=== PATIENT | male | born 1945 | race Caucasian/White ===

== ENCOUNTER 2023-02-26 13:48 | Outpatient (RCR) | payer MEDICARE, SELFPAY | END 2023-03-04 15:36 | disposition home or self-care (01) | LOC: PT 13:48 | PROVIDERS: PCP Family Medicine; Visit Provider Family Medicine | DX: M25.552 Pain in left hip (principal); M54.9 Dorsalgia, unspecified | CPT/HCPCS: 97110; 97162 ==

== ENCOUNTER 2023-06-01 07:49 | Outpatient (OUT) | payer MEDICARE, SELFPAY ==
--- NOTE | 2023-06-01 09:14 | PM.PRESUREVA ---
History of Present Illness History of Present Illness Chief complaint: left kidney stone, incomplete bladder emptying Narrative: Patient presents for preadmission testing. Please see HPI from Dr. Cortez dated 05/15/2023. Review of Systems ROS Narrative Please see ROS from Dr. Cortez dated 05/15/2023. [facility] Medical History (Updated 06/01/23 @ 09:[address] Horn NP) Anemia ?D64.9 - Anemia, unspecified (ICD-10) Arthritis ?M19.90 - Unspecified osteoarthritis, unspecified site (ICD-10) Benign prostatic hyperplasia ?N40.0 - Benign prostatic hyperplasia without lower urinary tract symptoms (ICD-10) Delayed recovery from anesthesia Diabetes ?E11.9 - Type 2 diabetes mellitus without complications (ICD-10) Dyspnea on exertion ?R06.09 - Other forms of dyspnea (ICD-10) Heartburn ?R12 - Heartburn (ICD-10) High cholesterol ?E78.00 - Pure hypercholesterolemia, unspecified (ICD-10) History of blood transfusion ?Z92.89 - Personal history of other medical treatment (ICD-10) Hydronephrosis ?N13.30 - Unspecified hydronephrosis (ICD-10) Hydroureter ?N13.4 - Hydroureter (ICD-10) Hydroureteronephrosis ?N13.30 - Unspecified hydronephrosis (ICD-10) Hypertension ?I10 - Essential (primary) hypertension (ICD-10) Kidney stones ?N20.0 - Calculus of kidney (ICD-10) Multiple myeloma ?C90.00 - Multiple myeloma not having achieved remission (ICD-10) Nausea ?R11.0 - Nausea (ICD-10) Neuropathy ?G62.9 - Polyneuropathy, unspecified (ICD-10) Prostate cancer ?C61 - Malignant neoplasm of prostate (ICD-10) Rheumatoid arthritis ?M06.9 - Rheumatoid arthritis, unspecified (ICD-10) S/P extracorporeal shock wave therapy ?Z98.890 - Other specified postprocedural states (ICD-10) Sepsis ?A41.9 - Sepsis, unspecified organism (ICD-10) Sleep apnea ?G47.30 - Sleep apnea, unspecified (ICD-10) Urinary retention ?R33.9 - Retention of urine, unspecified (ICD-10) Urinary tract infection ?N39.0 - Urinary tract infection, site not specified (ICD-10) Weakness ?R53.1 - Weakness (ICD-10) Surgical History (Updated 06/01/23 @ 09:[address] NP) 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) H/O blepharoplasty ?Z98.890 - Other specified postprocedural states (ICD-10) H/O cataract extraction ?Z98.49 - Cataract extraction status, unspecified eye (ICD-10) H/O cystoscopy (12/10/22) ?Z98.890 - Other specified postprocedural states (ICD-10) H/O foot surgery ?Z98.890 - Other specified postprocedural states (ICD-10) History of dental surgery ?Z92.89 - Personal history of other medical treatment (ICD-10) History of suprapubic catheter (03/05/23) ?Z98.890 - Other specified postprocedural states (ICD-10) History of throat surgery ?Z98.890 - Other specified postprocedural states (ICD-10) S/P TURP ?Z90.79 - Acquired absence of other genital organ(s) (ICD-10) S/P ureteral stent placement ?Z96.0 - Presence of urogenital implants (ICD-10) Status post dilation of urethral narrowing ?Z98.890 - Other specified postprocedural states (ICD-10) 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 Smoking status: Never smoker Highest level of school completed/degree received: high school graduate Meds Home Medications and Allergies Home Medications Medication Instructions Recorded Confirmed Type Lactobacillus acidophilus 10 100 mmu cells PO DAILY 06/01/23 06/01/23 History billion cell capsule (Probiotic) aspirin 81 mg capsule 81 mg PO DAILY 06/01/23 06/01/23 History atorvastatin 20 mg tablet 20 mg PO QDAY 06/01/23 06/01/23 History cholecalciferol (vitamin D3) 50 2,000 unit PO DAILY 06/01/23 06/01/23 History mcg (2,000 unit) capsule darbepoetin raymond in polysorbat 10 6.25 mcg IV .every other week PRN 06/01/23 06/01/23 History mcg/0.4 mL in polysorbate low hgb injection syringe (Aranesp) docusate sodium 100 mg capsule 100 mg PO DAILY 06/01/23 06/01/23 History (Stool Softener) famotidine 20 mg tablet 20 mg PO DAILY 06/01/23 06/01/23 History insulin glargine 100 unit/mL (3 36 unit subcut QPM 06/01/23 06/01/23 History mL) subcutaneous pen (Lantus Solostar U-100 Insulin) insulin lispro 100 unit/mL 1 sliding scale dose subcut TID 06/01/23 06/01/23 History subcutaneous pen iron bis glycinate lashon 28 mg cap PO 06/01/23 History iron-vit C 60 mg-FA 400 mcg-B12 8mcg cap (Gentle Iron) metformin 500 mg tablet,extended 500 mg PO BID 06/01/23 06/01/23 History release 24 hr multivitamin (Daily Multi-Vitamin 1 tab PO DAILY 06/01/23 06/01/23 History tablet) oxybutynin chloride 10 mg 10 mg PO BID 06/01/23 06/01/23 History tablet,extended release 24 hr Allergies Allergy/AdvReac Type Severity Reaction Status Date / Time gabapentin Allergy Verified 06/01/23 08:28 lisinopril Allergy Cough Verified 06/01/23 08:30 [email or web address] [From Myrbetriq] Allergy Rash Verified 06/01/23 08:28 Exam Narrative Exam Narrative: Constitutional: Awake, alert, comfortable, Chronically ill-appearing, nontoxic, interactive, vital signs as charted Head: Normocephalic, atraumatic Neck: Supple, normal appearance, normal range of motion, no meningeal signs, no lymphadenopathy Respiratory: No respiratory distress, breath sounds clear Cardiovascular: Regular rate and rhythm, strong and regular heart tones Abdomen: Nontender, normal bowel sounds, soft, no CVA tenderness Musculoskeletal: Normal gait, no swelling or edema Skin: No rashes or induration, no lesions, only visible skin inspected Neuro: No neurological deficits, normal sensation Psychiatric: Oriented ?3, normal affect Assessment and Plan Assessment and Plan (1) Hydroureteronephrosis: Plan Left ESWL, right stent exchange, suprapubic tube exchange scheduled with Dr. Cortez 06/10/2023.
[2023-06-01 09:23] LABS: Basophils Percent Auto 0.3 % (0.2-2.0); Eosinophils Absolute Auto 0.3 10^3/uL (0.0-0.7); Eosinophils Percent Auto 4.9 % (0.9-7.0); Hematocrit 29.5 % (42.0-54.0); Hemoglobin 9.8 g/dL (14.0-18.0); Immature Granulocytes Abs Auto 0.02 10^3/uL (0.00-0.03); Immature Granulocytes Pct Auto 0.3 % (0.0-0.5); Lymphocytes Percent Auto 14.1 % (20.5-60.0); Mean Corpuscular HGB Conc 33.2 g/dL (29.9-35.2); Mean Corpuscular Volume 111.3 fL (80.0-94.0); Mean Platelet Volume 10.4 fL (9.5-13.5); Monocytes Absolute Auto 0.5 10^3/uL (0.3-0.8); Monocytes Percent Auto 7.3 % (1.7-12.0); Neutrophils Absolute Auto 5.1 10^3/uL (1.4-6.5); Neutrophils Percent Auto 73.1 % (43.0-75.0); Platelet Count 162 10^3/uL (150-450); Red Blood Count 2.65 10^6/uL (4.70-6.10); Red Cell Distribution Width 15.6 % (11.0-15.0); White Blood Count 6.9 10^3/uL (4.0-11.0)
[2023-06-01 09:30] LABS: Partial Thromboplastin Time 26.5 sec (22.3-36.2); Prothrombin Time 9.6 sec (9.0-11.6)
[2023-06-01 09:42] LABS: Bilirubin Urine NEGATIVE (NEGATIVE); Blood Urine LARGE (NEGATIVE); Clarity Urine CLEAR (CLEAR); Color Urine RED (YELLOW); Glucose Urine UA 100 mg/dL (NEGATIVE); Ketones Urine NEGATIVE (NEGATIVE); Leukocyte Esterase Urine MODERATE (NEGATIVE); Nitrite Urine POSITIVE (NEGATIVE); Protein Urine 100 mg/dL (NEG/TRACE); Specific Gravity Urine 1.025 (1.005-1.025); Urobilinogen Urine 0.2 EU/dL (0.2-1.0)
[2023-06-01 09:56] LABS: Anion Gap 13.2; BUN Creatinine Ratio 14.2; Calcium 9.3 mg/dL (8.5-10.1); Carbon Dioxide 25.2 mmol/L (21.0-32.0); Chloride 105 mmol/L (98-107); Estimated GFR (African America 36 (>=60); Estimated GFR (Non-African Ame 29 (>=60); Glucose 157 mg/dL (74-106); Potassium 4.4 mmol/L (3.5-5.1); Sodium 139 mmol/L (136-145)
[2023-06-01 10:25] LABS: Bacteria Urine MODERATE #/HPF (NONE SEEN); Mucus Urine NONE SEEN (NONE SEEN); RBC Urine 20-50 #/HPF (0-2); WBC Urine 20-50 #/HPF (NONE SEEN)
[2023-06-01 10:26] LABS: Cast Seen? NONE SEEN #/LPF (NONE SEEN); Crystals Seen? None Seen #/HPF (None Seen); Squamous Epithelial Cell Urine NONE SEEN #/LPF (NONE/RARE)
[2023-06-01 10:38] LABS: INR <0.93
== END 2023-06-01 07:50 | disposition home or self-care (01) ==
LOC: PST 07:51
PROVIDERS: PCP Family Medicine; Visit Provider Urology
DX: Z01.810 Encounter for preprocedural cardiovascular examination (principal); Z01.812 Encounter for preprocedural laboratory examination; N13.30 Unspecified hydronephrosis; I10 Essential (primary) hypertension; E11.9 Type 2 diabetes mellitus without complications; D64.9 Anemia, unspecified; Z87.440 Personal history of urinary (tract) infections; R82.89 Other abnormal findings on cytological and histological examination of urine; Z96.0 Presence of urogenital implants
CPT/HCPCS: 80048; 81001; 85025; 85610; 85730; 87086; 87150; 87186; 93005; G0463

== ENCOUNTER 2023-06-10 11:33 | Day surgery (SDC) | payer MEDICARE, SELFPAY ==
--- NOTE | 2023-06-01 08:01 | ECG_ITS ---
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
[2023-06-01 08:51] VITALS: BP 150/76; PULSE 81; RESP 16; TEMP 36.3; O2SAT 100; BMI 31.4
[2023-06-10] VITALS (13 sets, daily range): BP systolic 120–138; BP diastolic 55–74; PULSE 65–98; RESP 12–24; TEMP 36.1–36.2; O2SAT 96–100
--- NOTE | 2023-06-10 11:30 | XR_ITS ---
The [address] [address] Patient Name: PATSY CUNNINGHAM MRN: [id number] date: 1945 Sex: M Assigned Patient Location: [facility] Current Patient Location: Accession/Order Number: [id number] Exam Date: 06/10/2023 11:40 Report Date: 06/11/2023 13:59 At the request of: ORQUIDEA TORRES Procedure: XR abdomen 1V EXAMINATION: XR abdomen 1V HISTORY: KIDNEY STONES , hydronephrosis COMPARISON: XR [facility] 01/14/2022 FINDINGS: KIDNEY/URETER - RIGHT: No visible renal or ureteral calcifications. KIDNEY/URETER - LEFT: Stable small calcification projecting over superior pole of kidney. PELVIS: Right ureteral stent appearing to be in appropriate position. No visible ureteral stones. Stable pelvic calcifications compatible with phleboliths. BOWEL: No abnormal dilation or deviation. BONES: No acute abnormality. OTHER: Negative. No abnormal gaseous collections. XR/XR abdomen 1V IMPRESSION: 1. Right ureteral stent. 2. Left nephrolithiasis. Electronically authenticated by: MICK LUO Date: 06/11/2023 13:59
[2023-06-10 12:05] LABS: Glucometer 176 mg/dL (74-106)
[2023-06-10] MEDS: LACTATED RINGER'S SOLUTION 1,000 ML 50 ML IV (12:26)
[2023-06-10] MEDS: CEFAZOLIN SODIUM/DEXTROSE,ISO 2 GM/50 ML PIGGYBACK IV (12:58)
[2023-06-10] MEDS: IOHEXOL 240 MG/ML - 10 ML VIAL INJ (13:32)
--- NOTE | 2023-06-10 14:02 | P.URON_ITS ---
Urology Surgery Operative Note Operative Note Procedure Date: 06/10/23 Time Out Performed: yes Pre-op Diagnosis: 1. Right ureteral stricture with hydronephrosis 2. Left kidney stone 3. Chronic right ureteral stent 4. Chronic suprapubic tube for noncompliant bladder Post-op Diagnosis: same as pre-op Procedures performed: 1. Cystoscopy, right retrograde pyelogram, ureteral stent exchange 2. Left extracorporeal shock wave lithotripsy 3. Suprapubic tube exchange Anesthesia: General-LMA (Dr. Humphrey) Primary Surgeon: Vesna Cortez Complications: none Estimated blood loss (mL): 0 Findings: -Non-obstructing prostatic urethra. Elevated bladder neck. 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 -BL UO widely patulous, indwelling right stent in appropriate position, not encrusted. Mod-severe right hydronephrosis -SPT balloon at bladder dome within a diverticulum. New 16Fr upper mattaponi tip catheter placed more inferiorly near stent rather than at dome. Specimens: none Drains: 7Fr x 22-30 cm JJ right ureteral stent 16Fr suprapubic catheter, 10 cc in balloon Incision: none Indications for Procedures: 78 year old male with complex urologic history including right distal ureteral stricture with hydronephrosis s/p dilation and chronic indwelling stent placed 03/05/23, non compliant small capacity bladder with chronic suprapubic catheter, urge incontinence and a 5 mm left kidney stone who presents for treatment. After discussion of risks/benefits of management options, he elected to proceed to the OR for 3 month routine right stent exchange, left ESWL and suprapubic tube exchange. Risks were discussed including but not limited to bleeding, pain, infection, damage to surrounding structures, inability to treat the stone/place a stent, and need for additional procedures. The patient understands the stent is not permanent and needs to be removed or exchanged within 3 months to prevent encrustation, infection, invasive procedures and/or permanent renal damage. Detailed description of Procedure: After informed consent was obtained, the patient was brought to the operating room and transferred onto the operating table in supine position. Sequential compression devices were placed on bilateral lower extremities. The patient received the appropriate dose of preoperative IV antibiotics and general anesthesia LMA was induced. They were positioned in modified dorsolithotomy with the appropriate pressure points padded, prepped, and draped in the usual sterile fashion for this procedure. An operative safety timeout was performed confirming the patient's identity, laterality and procedure, and all present agreed to proceed. The patient was positioned with the Siemens Lithostar lithotripter head on the left flank. The stone was triangulated using fluoroscopy. A total of 3000 shocks, max power 3.5 were provided and the stone was seen to fragment well. It was no longer visualized. Meanwhile, a 22 Italian rigid cystoscope with 30 degree lens was inserted into the patient's urethra and bladder with mild difficulty due to elevated, fixed bladder neck. A full cystoscopy with both a 30 and 70 degree lens was performed. There were no bladder tumors, lesions, stones. Bilateral ureteral orifices were orthotopic and patent, widely patulous. I turned my attention to the right ureteral orifice and brought the indwelling stent to the meatus. A Sensorwire was inserted into the stent up to the kidney confirmed on fluoroscopy and the stent was removed without difficulty. A 6Fr open ended catheter was inserted over the wire to the renal pelvis and dilute contrast was injected for retrograde pyelogram with findings as above. The wire was replaced and the catheter removed. A 7Fr x 22-30cm JJ variable length ureteral stent was advanced over the wire, noting adequate curl in the renal pelvis and bladder on fluoroscopic and direct visualization. The bladder was irrigated until clear and inspected one final time to ensure adequate position of stent and no undue trauma to the bladder was done. Under direct vision, the indwelling suprapubic catheter was deflated and removed without difficulty. A new 16Fr upper mattaponi tip catheter (due to supply availability) was inserted into the bladder, confirming within dependent portion of bladder lumen, 10 cc in balloon, placed to leg bag. The bladder was drained and cystoscope was removed. The patient tolerated the procedure well without complication. The patient was awakened from anesthesia and sent to the PACU in stable condition. Plan: Discharge home. Follow up in 4 weeks with [facility] and for routine SPT exchange. Right stent exchange in 4 months given good quality of existing stent, consider botox at that time. Other Provider present: No Post Operative care instructions: See discharge instructions Attending Doc Confirm Attending Attestation: Yes
== END 2023-06-10 14:56 | disposition home or self-care (01) ==
PROVIDERS: PCP Family Medicine; Visit Provider Urology
PROC: (CPT 50590; principal; 2023-06-10 12:30)
DX: N13.2 Hydronephrosis with renal and ureteral calculous obstruction (principal); I10 Essential (primary) hypertension; D64.9 Anemia, unspecified; Z87.440 Personal history of urinary (tract) infections; R33.9 Retention of urine, unspecified; N40.1 Benign prostatic hyperplasia with lower urinary tract symptoms; R12 Heartburn; E78.00 Pure hypercholesterolemia, unspecified; E11.40 Type 2 diabetes mellitus with diabetic neuropathy, unspecified; C61 Malignant neoplasm of prostate; N13.1 Hydronephrosis with ureteral stricture, not elsewhere classified; M06.9 Rheumatoid arthritis, unspecified; G47.30 Sleep apnea, unspecified; Z94.81 Bone marrow transplant status; Z90.79 Acquired absence of other genital organ(s); Z94.84 Stem cells transplant status; Z79.82 Long term (current) use of aspirin; Z79.899 Other long term (current) drug therapy; Z79.4 Long term (current) use of insulin; Z79.84 Long term (current) use of oral hypoglycemic drugs; R35.1 Nocturia; R31.21 Asymptomatic microscopic hematuria; N32.81 Overactive bladder; Z87.442 Personal history of urinary calculi; N31.9 Neuromuscular dysfunction of bladder, unspecified; Z80.42 Family history of malignant neoplasm of prostate; N32.3 Diverticulum of bladder
CPT/HCPCS: 50590; 51705; 52332; 36415; 36416; 74018; 82948; C1874; J2704; Q9966

== ENCOUNTER 2023-09-09 10:46 | Outpatient (OUT) | payer MEDICARE, SELFPAY ==
--- OUTSIDE RECORDS SUMMARY | 2023-09-09 11:08 | XMS_ITS | CCD ---
Author Name Unknown Address Critical access hospital[facility] [address] [place] [address] Organization [facility] Care Team Providers Care 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 Name Role Phone HELNE HEATH Primary Care Physician Price Crain Unavailable MD Helen Heath Attending Provider NO FAMILY, PHYSICIAN Primary Care Provider Unava ilable MD Helen Heath Primary Care Provider MD Brook Huddleston Attending Provider MD Price Crain Attending Provider MD Helen Heath Primary Care Provider [phone] MD Brook Huddleston Attending Provider [phone] MD Helen Heath Primary Care Provider MD Price Crain Attending Provider [phone] MD Brook Huddleston Attending Provider [phone] MD Helen Heath Primary Care Provider MD Helen Heath Primary Care Provider MD Brook Huddleston Attending Provider MD Helen Heath Primary Care Provider [phone] MD Brook Huddleston Attending Provider [phone] MD Vesna Cortez Attending Provider MD Price Crain Referring Provider [phone] MD Helen Heath Primary Care Provider MD Brook Huddleston Attending Provider MD Brook Huddleston Attending Provider [phone] MD Helen Heath Primary Care Provider [phone] MD Vesna Cortez Attending Provider [phone] MD Price Crain Referring Provider [phone] MD Helen Heath Other Provider MD Brook Huddleston Attending Provider MD Helen Heath Attending Provider Dr. Helen Heath [facility] MD QUIQUE Mosley Admitting Unavailable MD QUIQUE HALL Attending Unavailable Kumar, Dr. Helen Perez [facility] MD QUIQUE Mosley Admitting Unavailable MD QUIQUE HALL Attending Unavailable Kumar, Dr. Cervantes Chris [facility] BROOK Vargas Attending Unavailable Kumar, Dr. Cervantes Chris [facility] BROOK Vargas Attending Unavailable Kumar, Dr. Cervantes Chris [facility] Ramesh Lyman Attending Unavailable Ramesh Green Referring Unavailable Kumar, Dr. Cervantes [facility] MD QUIQUE Mosley Admitting Unavailable MD QUIQUE HALL Attending Unavailable WILFREDO VANESSA Attending Unavailabl heena Heath, Dr. Cervantes [facility] MD Brook Vargas Attending Provider MD Brook Huddleston Attending Provider [phone] MD Brook Huddleston Attending Provider SUNDAY CORTEZHY Janes Admitting Unavailable DR HELEN HEATH Primary [facility] Unavailable RALPHE, VESNA M Attending Unavailable Chad Quintero Consulting Unavailable RALPHE, VESNA M Consulting Unavailable ARNEL Cartwright, DR PATSY Payne Admitting Unavaila daisy HEATH, DR CERVANTES Primary Care Unavailable ARNEL Cartwright, DR PATSY Payne Attending Unavaila daisy Cartwright, DR PATSY Payne Consulting Unavaila ble AMANDA, KATINA Consulting Unavailable DR HELEN HEATH Consulting Unavailable MAANDA, KATINA Consulting Unavailable RALPHE, VESNA M Attending Unavailable DR HELEN HEATH Primary [facility] Unavailable RALPHE, VESNA M Admitting Unavailable RALPHE, VESNA M Consulting Unavailable KUMAR, DR CERVANTES Primary Care Unavailable LUE, VESNA M Consulting Unavailable LUE, VESNA M Attending Unavailable LUE, VESNA M Admitting Unavailable LUE, VESNA M Admitting Unavailable LUE, VESNA M Consulting Unavailable DR HELEN HEATH Primary Care Unavailable LUE, VESNA M Attending Unavailable SEALS JR ., DR PATSY Payne Admitting Unavaila ble KUMAR, DR CERVANTES Primary Care Unavailable YOMAIRA, DR CHAD Lawson Consulting Unavailable ARNEL Cartwright, DR PATSY Payne Attending Unavaila ble FLAQUITO, DR BROOK Marrero Consulting Unavailable SEALS JR ., DR PATSY Payne Consulting Unavaila ble AGUBOSIM, JUNAID Consulting Unavailable DORKOSKIE FEDE Consulting Unavailable LUE, VESNA M Consulting Unavailable KUMAR, DR CERVANTES Primary Care Unavailable LUE, VESNA M Attending Unavailable LUE, VESNA M Admitting Unavailable SAM, LENNOX Consulting Unavailable LUIS MANUEL RODRIGUEZ Consulting Unavailable KUMAR, DR CERVANTES Primary Care Unavailable SEALS JR Cartwright, DR PATSY Payne Attending Unavaila ble ARNEL Cartwright, DR PATSY Payne Admitting Unavaila ble LUE, VESNA M Admitting Unavailable HEATH, DR CERVANTES Primary Care Unavailable LUE, VESNA M Attending Unavailable YOMAIRA, DR CHAD Lawson Consulting Unavailable PATEL KATINA Consulting Unavailable LUE, VESNA M Consulting Unavailable KUMAR, DR CERVANTES Primary Care Unavailable LUE, VESNA M Consulting Unavailable LUE, VESNA M Attending Unavailable LUE, VESNA M Admitting Unavailable SAM, LENNOX Consulting Unavailable LUE, VESNA M Admitting Unavailable LUE, VESNA M Consulting Unavailable DR HELEN HEATH Primary Care Unavailable LUE, VESNA M Attending Unavailable JAYLEEN BANDATANY Consulting Unavailable LENNOX GREENBERG Consulting Unavailable KUMAR, DR CERVANTES Primary Care Unavailable GINNY IRWIN Consulting Unavailable DC, GINNY Attending Unavailable DC, GINNY Admitting Unavailable MD Brook Huddleston Attending Provider Unavailable Primary Care Provider UnavailHelen Lee MD Primary Care Provider MD Helen Heath Primary Care Provider MD Helen Heath Attending Provider [phone] MD Vesna Cortez Attending Provider MD Price Crain Attending Provider MD Brook Huddleston Attending Provider [phone] HELEN HEATH Primary Care Unavailabl e BERTRAM-AVA, DAISY Referring Unavailable APARICIO, SAMIR Referring Unavailable APARICIO, SAMIR Attending Unavailable BERTRAM-AVA, DAISY Attending Unavailable HELEN HEATH Primary Care Unavailabl e BERTRAM-AVA, DAISY Attending Unavailable BERTRAM-AVA, DAISY Attending Unavailable BERTRAM-AVA, DAISY Admitting Unavailable MD Helen Heath Primary Care Provider [phone] MD Helen Heath Attending Provider [phone] MD Brook Huddleston Attending Provider MD Vesna Cortez Attending Provider [phone] MD Helen Heath Primary Care Provider [phone] MD Helen Heath Primary Care Provider MD Vesna Cortez Attending Provider [phone] MD Price Crain Attending Provider MD Brook Huddleston Attending Provider Lue, Vesna M. Attending Unavailable Lue, Vesna M. Attending Unavailable Lue, Vesna M. Referring Unavailable KEN HELTON Attending Unavailable Lue, Vesna M. Attending Unavailable Lue, Vesna M. Attending Unavailable Lue, Vesna M. Admitting Unavailable Lue, Vesna M. Attending Unavailable Lue, Vesna M. Admitting Unavailable Lue, Vesna M. Attending Unavailable Lue, Vesna M. Admitting Unavailable Lue, Vesna M. Referring Unavailable Lue, Vesna M. Attending Unavailable Lue, Vesna M. Admitting Unavailable Lue, Vesna M. Attending Unavailable Lue, Vesna M. Admitting Unavailable Lue, Vesna M. Referring Unavailable Lue, Vesna M. Attending Unavailable Lue, Vesna M. Attending Unavailable Lue, Vesna M. Attending Unavailable Lue, Vesna M. Attending Unavailable Lue, Vesna M. Attending Unavailable Lue, Vesna M. Attending Unavailable Lue, Vesna M. Attending Unavailable Lue, Vesna M. Attending Unavailable Lue, Vesna M. Attending Unavailable Santi SCHWARTZ Attending Unavailable Lue, Vesna M. Referring Unavailable Lue, Vesna M. Attending Unavailable Kareem, Danenette A Attending Unavailable Kareem, Lannette A Admitting Unavailable Lue, Vesna M. Attending Unavailable Lue, Vesna M. Admitting Unavailable KEN HELTON Attending Unavailable Lue, Vesna M. Attending Unavailable Santi SCHWARTZ Attending Unavailable Jose BURROWS Attending Unavailable Lue, Vesna M. Attending Unavailable Lue, Vesna M. Attending Unavailable Lue, Vesna M. Attending Unavailable Lue, Vesna M. Admitting Unavailable Lue, Vesna M. Attending Unavailable Lue, Vesna M. Attending Unavailable Angora, Danenette A Attending Unavailable Lue, Vesna M. Attending Unavailable Lue, Vesna M. Attending Unavailable Lue, Vesna M. Attending Unavailable Heath, Helen Primary Care Unavailable Lue, Vesna M Attending Unavailable Lue, Vesna M Admitting Unavailable Heath, Helen Primary Care Unavailable Lue, Vesna M Attending Unavailable Lue, Vesna M Admitting Unavailable Lue, Vesna M Attending Unavailable Lue, Vesna M Admitting Unavailable Heath, Helen Primary Care Unavailable Heath, Helen Primary Care Unavailable Heath, Helen Attending Unavailable Heath, Helen Admitting Unavailable Heath, Helen Primary Care Unavailable Lue, Vesna M Attending Unavailable Lue, Vesna M Admitting Unavailable Heath, Helen Primary Care Unavailable Lue, Vesna M Attending Unavailable Lue, Vesna M Admitting Unavailable Lue, Vesna M Attending Unavailable Heath, Helen Primary Care Unavailable Lue, Vesna M Admitting Unavailable Lue, Vesna M Attending Unavailable Lue, Vesna M Admitting Unavailable Heath, Helen Primary Care Unavailable Lue, Vesna M Admitting Unavailable Lue, Vesna M Attending Unavailable Heath, Helen Primary Care Unavailable Flaquito, Brook Attending Unavailable Heath, Helen Primary Care Unavailable Flaquito, Brook Admitting Unavailable Bakhous, Aziz Admitting Unavailable Heath, Helen Primary Care Unavailable Bakhous, Aziz Attending Unavailable Bakhous, Aziz Attending Unavailable Bakhous, Aziz Admitting Unavailable Heath, Helen Primary Care Unavailable Heath, Helen Attending Unavailable Heath, Helen Admitting Unavailable Heath, Helen Primary Care Unavailable Lue, Vesna M Attending Unavailable Lue, Vesna M Admitting Unavailable Heath, Helen Primary Care Unavailable Bakhous, Aziz Referring Unavailable Helen Heath Primary Care Unavailable Vesna Cortez Attending Unavailable Vesna Cortez Admitting Unavailable Helen Heath Consulting Unavailable Helen Heath Primary Care Unavailable Helen Heath Attending Unavailable Helen Heath Admitting Unavailable Helen Heath Primary Care Unavailable Helen Heath Attending Unavailable Helen Heath Admitting Unavailable Allergies Allergy Classification Reported Allergen(s) Allergy Type Date of Onset Reaction(s) Facility (20 sources) gabapentin; Translations: [gabapentin] Drug Allergy 2 rash, Unknown [facility] (20 sources) mirabegron; Translations: [MIRABEGRON] Drug Allergy 2 Diarrhea, GI Upset [facility] (20 sources) mirabegron; Translations: [mirabegron] Drug Allergy Multiple open mouth wounds (disorder) [facility] (1 source) No Known Medication Allergies; Translations: [No Known Medication Allergies] Propensity to adverse reactions (disorder) [facility] Rep[facility] Medications Current Medications Medication Drug Class(es) Dates Sig (Normalized) Sig (Original) acetaminophen 325 mg / HYDROcodone bitartrate 5 mg oral tablet (5 sources) Opioid Agonist Start: 04-18-2022 [place] 325 mg-5 mg oral tablet 1 tab(s), Oral, As Directed, 1 tab(s), Refill(s) 0, Take 1 hour prior to procedure, [facility], 180, cm, 04/18/22 13:52:00 EDT, Height/Length Dosing, 110, kg, 04/18/22 13:52:00 EDT, Weight Dosing Start Date: 04/18/22 Status: Ordered acetaminophen 325 mg / traMADol hydrochloride 37.5 mg oral tablet (5 sources) Opioid Agonist Start: 04-18-2022 take 1 tablet by mouth every six hours Ultracet 325 mg-37.5 mg Tab 1 tab(s), Oral, q6hr severe pain, 12 tab(s), Refill(s) 0, [facility], 180, cm, 04/18/22 13:52:00 EDT, Height/Length Dosing, 110, kg, 04/18/22 13:52:00 EDT, Weight Dosing Start Date: 04/18/22 Status: Ordered acyclovir 400 mg oral tablet (20 sources) Herpesvirus Nucleoside Analog DNA Polymerase Inhibitor, Herpes Simplex Virus Nucleoside Analog DNA Polymerase Inhibitor, Herpes Zoster Virus Nucleoside Analog DNA Polymerase Inhibitor Start: 10-15-2020 End: 09-03-2022 take 1 tablet by mouth twice daily Zovirax 400 mg Tab 400 mg = 1 tab(s), Oral, BID, Refills(s) 0 Start Date: 11/13/20 Status: Ordered aspirin 81 mg delayed release oral tablet (20 sources) Platelet Aggregation Inhibitor, Nonsteroidal Anti-inflammatory Drug Start: 11-26-2020 take 1 tablet by mouth once daily Aspirin (Aspir-81) 81 mg Tablet,Delayed Release (Dr/Ec) Active 81 MG PO Daily November 25, 2020 11:00pm Start: 11-13-2020 aspirin 81 mg Chew Tab mg tab(s), Chewed, Daily, Refills(s) 0 Start Date: 11/13/20 Status: Ordered Start: 04-27-2020 End: 10-15-2020 take 1 tablet by mouth once daily Aspirin (Aspirin Low Dose) 81 mg Tablet,Delayed Release (Dr/Ec) Discontinued 81 MG PO Daily April 26, 2020 11:00pm October 15, 2020 10:14am take 1 tablet by [facility] once daily Aspirin 81 81 MG 1 tablet Orally Once a day Active Comment on above: mg tab(s), Chewed, Daily, Refills(s) 0 atorvastatin 20 mg oral tablet (20 sources) HMG-CoA Reductase Inhibitor Start: 10-16-19 take 1 tablet by mouth once daily atorvastatin 20 mg Tab 20 mg = 1 tab(s), Oral, Daily, Refills(s) 0 Start Date: 11/13/20 Status: Ordered Comment on above: Take by mouth. cephalexin 500 mg oral capsule (20 sources) Cephalosporin Antibacterial Start: 02-26-20 End: 03-04-20 take 1 capsule by mouth three times daily cephALEXin (KEFLEX) 500 mg capsule Take 1 capsule by mouth three times daily for 7 days. 21 capsule 0 02/25/2023 03/04/2023 Active Start: 08-20-2021 End: 10-03-2021 take 500 mg by mouth every eight hours Cephalexin Discontinued 500 MG PO Every 8 hours 15 06August 20, 2021 12:00am October 03, 2021 1:10pm Comment on above: Take 1 capsule by [facility] three times daily for 7 days. cholecalciferol 0.05 mg oral capsule (20 sources) Vitamin D Start: take 1 capsule by mouth once daily Cholecalciferol (Vitamin D3) (Vitamin D3) 50 mcg (2,000 unit) Capsule Active 50 MCG PO Daily October 15, 2020 12:00am Comment on above: Take by mouth. ciprofloxacin 500 mg oral tablet (5 sources) Quinolone Antimicrobial Start: take 1 tablet by mouth every twelve hours Cipro 500 mg Tab 500 mg = 1 tab(s), Oral, q12hr, Start taking day prior to scheduled UroLift, # 6 tab(s), Refills(s) 0, Pharmacy: [facility], 180, cm, 04/18/22 13:52:00 EDT, Height/Length Dosing, 110, kg, 04/18/22 13:52:00 EDT, Weight Dosing Start Date: 04/25/22 Status: Ordered Start: 04-18-2022 End: 04-21-2022 take 1 tablet by mouth twice daily Cipro 500 mg Tab 500 mg = 1 tab(s), Oral, BID, Start day before, X 3 day(s), # 6 tab(s), Refills(s) 0, Pharmacy: [facility], 180, cm, 04/18/22 13:52:00 EDT, Height/Length Dosing, 110, kg, 04/18/22 13:52:00 EDT, Weight Dosing Start Date: 04/18/22 Stop Date: 04/21/22 Status: Ordered diazePAM 10 mg oral tablet (5 sources) Benzodiazepine Start: 04-18-2022 Valium 10 mg Tab 10 mg = 1 tab(s), Oral, As Directed, Take 1/2 hour prior to procedure, # 1 tab(s), Refills(s) 0, Pharmacy: [facility], 180, cm, 04/18/22 13:52:00 EDT, Height/Length Dosing, 110, kg, 04/18/22 13:52:00 EDT, Weight Dosing Start Date: 04/18/22 Status: Ordered doxycycline hyclate 100 mg oral capsule (7 sources) Tetracycline-class Drug Start: 10-09-2022 End: 10-16-2022 take 1 capsule by mouth twice daily doxycycline hyclate 100 mg Cap 100 mg = 1 cap(s), Oral, BID, X 7 day(s), # 14 cap(s), Refills(s) 0, Pharmacy: [facility], 180, cm, 10/09/22 11:06:00 EST, Height/Length Dosing, 95.5, kg, 10/09/22 11:06:00 EST, Weight Dosing Start Date: 10/09/22 Stop Date: 10/16/22 Status: Ordered Start: 12-10-2021 take 1 mg by mouth twice daily doxycycline hyclate 100 mg Cap mg cap(s), Oral, BID, Refills(s) 0 Start Date: 12/10/21 Status: Ordered take 1 tablet by [facility] twice daily Doxycycline Hyclate 100 MG 1 tablet Orally Twice a day Active fluconazole 200 mg oral tablet (2 sources) Azole Antifungal Start: 04-08-2022 End: 04-22-2022 take 1 tablet by mouth once daily fluconazole 200 mg Tab 200 mg = 1 tab(s), Oral, Daily, X 14 day(s), # 14 tab(s), Refills(s) 0, Pharmacy: [facility], 180, cm, 04/01/22 9:29:00 EDT, Height/Length Dosing, 110, kg, 04/01/22 9:29:00 EDT, Weight Dosing Start Date: 04/08/22 Stop Date: 04/22/22 Status: Ordered furosemide 20 mg oral tablet (20 sources) Loop Diuretic Start: 11-13-2020 take 1 mg by mouth once daily furosemide 20 mg Tab mg tab(s), Oral, Daily, Refills(s) 0 Start Date: 11/13/20 Status: Ordered Start: 10-15-2020 End: 10-03-2021 take 20 mg by mouth once daily Furosemide Discontinued 20 MG PO Daily October 15, 2020 10:15am October 03, 2021 1:22pm Start: 03-10-2020 End: 10-15-2020 take 40 mg by mouth twice daily Furosemide Discontinued 40 MG PO BID@0800,1600 60 March 09, 2020 11:00pm October 15, 2020 10:16am hydrALAZINE hydrochloride 25 mg oral tablet (20 sources) Arteriolar Vasodilator Start: 12-10-2021 take 1 mg by mouth four times daily hydrALAZINE 25 mg Tab mg tab(s), Oral, QID, Refills(s) 0 Start Date: 12/10/21 Status: Ordered Start: 07-02-2020 End: 10-03-2021 take 25 mg by mouth twice daily Hydralazine Discontinued 25 MG PO Twice daily July 02, 2020 9:01am October 03, 2021 1:22pm Start: 03-10-2020 End: 07-02-2020 take 50 mg by mouth twice daily Hydralazine Discontinued 50 MG PO Twice daily 60 March 09, 2020 11:00pm July 02, 2020 9:01am Humalog (20 sources) Insulin Analog Start: 12-10-2021 Humalog 8 unit (s), SubCutaneous, Refills(s) 0 Start Date: 12/10/21 Status: Ordered Start: 12-10-2021 Humalog SubCut aneous, Refills(s) 0 Start Date: 12/10/21 Status: Ordered Start: 04-27-2020 inject 100 [IU] by s ubcutaneous injection once Insulin Lispro (Humalog Kwikpen Insulin) 100 unit/mL Insulin Pen Active 6 - 16 UNIT SUBCUT As Directed April 26, 2020 11:00pm per sliding scale instructions HumaLOG KwikPen 100 UNIT/ML ICR 6--12 ac according to meal size plus ISS 1:20 ac, (hs if >200 half dose) Subcutaneous as directed Active Insulin Lispro (Humalog Kwikpen Insulin) 100 unit/mL Insulin Pen (14 sources) Start: 04-27-2020 inject 100 [IU] by subcutaneous injection once Insulin Lispro (Humalog Kwikpen Insulin) 100 unit/mL Insulin Pen Active 6 - 16 UNIT SUBCUT As Directed April 27, 2020 12:00am per sliding scale instructions Start: 04-27-2020 inject 100 [IU] by s ubcutaneous injection once Insulin Lispro (Humalog Kwikpen Insulin) 100 unit/mL Insulin Pen Active 6 - 16 UNIT SUBCUT As Directed April 26, 2020 11:00pm per sliding scale instructions levoFLOXacin 500 mg oral tablet (1 source) Quinolone Antimicrobial Start: 07-02-2023 End: 07-09-2023 take 1 tablet by mouth every twenty-four hours Levaquin 500 mg Tab 500 mg = 1 tab(s), Oral, q24hr, X 7 day(s), # 7 tab(s), Refills(s) 0, Pharmacy: [facility], 171, cm, 05/15/23 15:22:00 EDT, Height/Length Dosing, 94, kg, 05/15/23 15:22:00 EDT, Weight Dosing Start Date: 07/02/23 Stop Date: 07/09/23 Status: Ordered Lisinopril (9 sources) Angiotensin Converting Enzyme Inhibitor Start: 02-13-2023 lisinopril Oral, Daily Start Date: 02/13/23 Status: Ordered Start: 01-22-2023 take 10 mg by mouth once daily Lisinopril Active 10 MG PO Daily January 21, 2023 11:00pm Start: 01-14-2023 lisinopril (ZE STRIL) 10 mg tablet Take by mouth q 24 HR. 0 01/14/2023 Active Start: 01-14-2023 take 1 tablet by [facility] every twenty-four hours Lisinopril 10 MG 1 tablet Orally Once a day for 30 days December, Active Comment on above: Take by mouth q 24 H R. losartan potassium 25 mg oral tablet (5 sources) Angiotensin 2 Receptor Magdiel Start: 06-08-2023 take 1 mg by mouth once daily losartan 25 mg Tab mg tab(s), Oral, Daily, Refills(s) 0 Start Date: 06/08/23 Status: Ordered 24 hr mirabegron 50 mg extended release oral tablet (3 sources) beta3-Adrenergic Agonist Start: 06-04-2022 End: 12-31-2022 take 1 tablet by mouth once daily mirabegron 50 mg oral tablet, extended release 50 mg = 1 tab(s), Oral, Daily, X 30 day(s), # 30 tab(s), Refills(s) 6, Pharmacy: [facility], 180, cm, 06/04/22 11:02:00 EDT, Height/Length Dosing, 95.5, kg, 06/04/22 11:02:00 EDT, Weight Dosing Start Date: 06/04/22 Stop Date: 12/31/22 Status: Ordered Multi Vitamin Mens (2 sources) Multi Vitamin Me ns Active 24 hr oxybutynin chloride 10 mg extended release oral tablet (20 sources) Cholinergic Muscarinic Antagonist Start: 05-15-2023 take 1 tablet by mouth once daily oxybutynin 10 mg ER Tab 10 mg = 1 tab(s), Oral, Daily, # 30 tab(s), Refills(s) 0, other reason (Rx) Start Date: 05/15/23 Status: Ordered Start: 12-29-2022 oxybutynin ER (DITROPAN XL) 10 mg 24 hr tablet Start: 08-28-2022 End: 08-23-2023 take 1 tablet by mouth twice daily oxybutynin 5 mg ER Tab 5 mg = 1 tab(s), Oral, BID, # 180 tab(s), Refills(s) 3, Pharmacy: [facility] 180, cm, 10/16/22 10:34:00 EST, Height/Length Dosing, 95.5, kg, 10/16/22 10:34:00 EST, Weight Dosing Start Date: 10/16/22 Status: Ordered Start: 07-28-2022 take 2.5 mg by mouth once gloria y Oxybutynin Chloride Active 2.5 MG PO Daily July 28, 2022 12:00am Start: 07-04-2022 take 1 tablet by [facility] once daily oxybutynin 5 mg ER Tab 5 mg = 1 tab(s), Oral, Daily, # 30 tab(s), Refills(s) 3, Pharmacy: [facility], 180, cm, 07/04/22 13:18:00 EST, Height/Length Dosing, 95.5, kg, 07/04/22 13:18:00 EST, Weight Dosing Start Date: 07/04/22 Status: Ordered Start: 05-05-2022 take 1 tablet by [facility] three times daily as needed for muscle spasms oxybutynin 5 mg Tab 5 mg = 1 tab(s), Oral, TID, PRN for urinary discomfort, Bladder spasms, # 90 tab(s), Refills(s) 0, Pharmacy: [facility], 180, cm, 05/01/22 14:12:00 EDT, Height/Length Dosing, 110, kg, 05/01/22 14:11:00 EDT, Weight Dosing Start Date: 05/05/22 Status: Ordered potassium phosphate 155 mg / sodium phosphate, dibasic 852 mg / sodium phosphate, monobasic 130 mg oral tablet (4 sources) Start: 01-14-2023 take 1 tablet by mouth every eight hours Phospha 250 Neutral 155-852-130 MG 1 tablet Orally tid for 30 days December, Active Comment on above: Take 1 tablet by [facility] three times daily. probiotic (3 sources) probiotic as directed Active Probiotic + Colostrum (20 sources) Start: 12-10-2021 Probiotic + Colostrum Oral, Daily, Refill(s) 0 Start Date: 12/10/21 Status: Ordered tamsulosin hydrochloride 0.4 mg oral capsule (20 sources) alpha-Adrenergi c Magdiel Start: 07-04-2022 take 1 capsule by mouth once daily tamsulosin 0.4 mg Cap 0.4 mg = 1 cap(s), Oral, Daily, # 30 cap(s), Refills(s) 5, Pharmacy: [facility], 180, cm, 07/04/22 13:18:00 EST, Height/Length Dosing, 95.5, kg, 07/04/22 13:18:00 EST, Weight Dosing Start Date: 07/04/22 Status: Ordered Start: 06-09-2022 take 1 capsule by [facility] once daily tamsulosin 0.4 mg Cap 0.4 mg = 1 cap(s), Oral, Daily, # 30 cap(s), Refills(s) 5, Pharmacy: [facility], 180, cm, 06/04/22 11:02:00 EDT, Height/Length Dosing, 95.5, kg, 06/04/22 11:02:00 EDT, Weight Dosing Start Date: 06/09/22 Status: Ordered Start: 05-05-2022 take 1 capsule by [facility] once daily tamsulosin 0.4 mg Cap 0.4 mg = 1 cap(s), Oral, Daily, # 30 cap(s), Refills(s) 1, Pharmacy: [facility], 180, cm, 05/01/22 14:12:00 EDT, Height/Length Dosing, 110, kg, 05/01/22 14:11:00 EDT, Weight Dosing Start Date: 05/05/22 Status: Ordered Start: 04-30-2022 End: 07-28-2022 take 0.4 mg by mouth twice daily Tamsulosin Discontinued 0.4 MG PO Twice daily April 29, 2022 11:00pm July 28, 2022 10:13am Start: 04-01-2022 tamsulosin 0.4 mg Cap Refills(s) 0 Start Date: 04/01/22 Status: Ordered Start: 10-03-2021 End: 02-05-2022 take 0.4 mg by mouth once daily Tamsulosin Discontinue d 0.4 MG PO Daily October 03, 2021 12:00am February 05, 2022 10:48am take 1 capsule by [facility] every twelve hours Tamsulosin HCl 0.4 MG 1 capsule Orally TWICE A DAY Active trospium chloride 20 mg oral tablet (1 source) Cholinergic Muscarinic Antagonist Start: 09-18-2022 take 1 tablet by mouth at bedtime trospium 20 mg oral tablet 20 mg = 1 tab(s), Oral, Bedtime, # 30 tab(s), Refills(s) 11, Pharmacy: [facility], 180, cm, 09/18/22 9:44:00 EST, Height/Length Dosing, 95.5, kg, 09/18/22 9:44:00 EST, Weight Dosing Start Date: 09/18/22 Status: Ordered Vitamin D 50 MCG (1999 UT) (3 sources) take 1 capsule by mouth once daily Vitamin D 50 MCG (2000 UT) 1 capsule Orally Once a day Active Vitamin D3 2000 intl units (20 sources) Start: 11-13-2020 Vitamin D3 200 0 intl units Oral, Daily, Refills(s) 0 Start Date: 11/13/20 Status: Ordered Start: 11-13-2020 Vitamin D3 200 0 intl units Refills(s) 0 Start Date: 11/13/20 Status: Ordered Completed/Discontinued Medications Medication Drug Class(es) Dates Sig (Normalized) Sig (Original) acetaminophen 325 mg oral capsule (19 sources) Start: 04-27-2020 End: 02-27-2021 take 2 capsules by mouth once daily Acetaminophen (Tylenol) 325 mg Capsule Discontinued 650 MG PO Daily April 26, 2020 11:00pm February 27, 2021 1:41pm acetaminophen 325 mg / oxyCODONE hydrochloride 5 mg oral tablet (19 sources) Opioid Agonist Start: 05-30-2020 End: 10-15-2020 take 1 tablet by mouth every four hours Oxycodone-Acetamin ophen (Percocet) 5-325 mg Tablet Discontinued 1 TAB PO Q4H May 29, 2020 11:00pm October 15, 2020 10:40am prescribed through palliative amLODIPine 5 mg oral tablet (19 sources) Dihydropyridine Calcium Channel Magdiel Start: 03-10-2020 End: 04-09-2020 take 5 mg by mouth once daily Amlodipine Discontinued 5 MG PO Daily March 09, 2020 11:00pm April 09, 2020 7:39am calcium acetate 667 mg oral capsule (19 sources) Start: 04-09-2020 End: 04-27-2020 take 667 mg by mouth three times daily Calcium Acetate(Phosphat Bind) Discontinued 667 MG PO Three times daily April 08, 2020 11:00pm April 27, 2020 3:13pm 1 ml darbepoetin raymond 0.04 mg/ml injection (20 sources) Erythropoiesis-stimu lating Agent Start: 03-10-2020 End: 04-27-2020 take 1 [IU] intravenously every week Darbepoetin Raymond In Polysorbat (Aranesp (In Polysorbate)) 40 mcg/mL Solution Discontinued 40 MCG IV-PUSH Q7D@1000 0 March 09, 2020 11:00pm April 27, 2020 3:13pm This will be given at the dialysis unit. Aranesp (Albumin Free) 10 MCG/0.4ML as directed Injection every other week Active docusate sodium 100 mg oral capsule (20 sources) Start: 03-10-2020 End: 10-15-2020 take 1 capsule by mouth twice daily Docusate Sodium (Dok) 100 mg Capsule Discontinued 100 MG PO Twice daily March 09, 2020 11:00pm October 15, 2020 10:14am Comment on above: Take 100 mg by mouth twice daily as needed for constipation. ergocalciferol 1.25 mg oral capsule (20 sources) Provitamin D2 Compound Start: 03-10-2020 End: 07-02-2020 take 53003 [IU] by mouth once Ergocalciferol (Vitamin D2) Discontinued 15767 UNIT PO Mo@0900 8 60 May 07, 2020 8:01am July 02, 2020 9:01am famotidine 20 mg oral tablet (20 sources) Histamine-2 Receptor Antagonist Start: 08-20-2021 End: 08-20-2021 Famotidine Discontinued MG TABLET August 20, 2021 12:00am August 20, 2021 6:16pm Start: 08-15-2020 famotidine (PE PCID) 20 mg tablet Take 20 mg by mouth. 0 08/15/2020 Active Start: 03-10-2020 End: 09-03-2022 take 1 tablet by mouth once daily at bedtime famotidine 20 mg Tab 20 mg = 1 tab(s), Oral, Once a day (at bedtime), Refills(s) 0 Start Date: 11/13/20 Status: Ordered Comment on above: Take 20 mg by mouth. ferrous sulfate 325 mg oral tablet (20 sources) Start: 07-02-2020 End: 10-15-2020 take 325 mg by mouth once daily Ferrous Sulfate Discontinued 325 MG PO Daily July 02, 2020 12:00am October 15, 2020 10:15am Start: 03-10-2020 End: 04-27-2020 take 324 mg by mouth twice daily Ferrous Sulfate Discontinued 324 MG PO Twice daily 60 March 09, 2020 11:00pm April 27, 2020 3:13pm gabapentin 100 mg oral capsule (20 sources) Anti-epileptic Agent Start: 10-15-2020 End: 05-30-2021 Gabapentin Discontinued 100 MG PO Daily October 15, 2020 12:00am May 30, 2021 1:41pm takes 2 in morning, 1 in the afternoon and 2 at night Start: 07-02-2020 End: 10-15-2020 take 3 tablets by mouth once daily at bedtime Gabapentin Discontinued 100 MG PO Daily at bedtime July 02, 2020 12:00am October 15, 2020 10:15am may take up to three tabs glyBURIDE 5 mg oral tablet (19 sources) Sulfonylurea Start: 03-04-2020 End: 03-10-2020 take 5 mg by mouth once daily Glyburide Discontinued 5 MG PO Daily March 03, 2020 11:00pm March 10, 2020 7:07am hydroCHLOROthiazide 25 mg / lisinopril 20 mg oral tablet (19 sources) Thiazide Diuretic, Angiotensin Converting Enzyme Inhibitor Start: 03-04-2020 End: 03-10-2020 take 1 tablet by mouth once daily Lisinopril-Hydroc hlorothiazide Discontinued 1 TAB PO Daily March 03, 2020 11:00pm March 10, 2020 7:07am 3 ml insulin glargine 100 unt/ml pen injector (20 sources) Insulin Analog Start: 01-15-2023 LANTUS SOLOSTAR U-100 INSULIN 100 unit/mL (3 mL) Start: 11-13-2020 inject 25 [IU] by causey bcutaneous injection once daily at bedtime Lantus insulin 25 unit(s), SubCutaneous, Once a day (at bedtime), Refills(s) 0 Start Date: 11/13/20 Status: Ordered Start: 11-13-2020 Lantus insulin SubCutaneous, Daily, Refills(s) 0 Start Date: 11/13/20 Status: Ordered Start: 04-27-2020 Insulin Glargi ne (Lantus Solostar U-100 Insulin) 100 unit/mL (3 mL) Insulin Pen Active 25 UNIT SUBCUT Daily April 26, 2020 11:00pm 25 units at bedtime Lantus SoloStar 100 UNIT/ML as directed Subcutaneous 12 UNITS IN [facility] Active insulin isophane, human 100 unt/ml injectable suspension (19 sources) Start: 05-07-2020 End: 10-15-2020 Insulin Nph Isoph U-100 Human (Humulin N Nph U-100 Insulin) 100 unit/mL Suspension Discontinued 30 UNIT SUBCUT As Directed May 06, 2020 11:00pm October 15, 2020 11:18am on dexamethasone days insulin lispro (HUMALOG KWIKPEN) 100 unit/mL pen (2 sources) inject 8 [IU] by subcutaneous injection three times daily before mealtime insulin lispro (HUMALOG KWIKPEN) 100 unit/mL pen Inject 8 Units subcutaneously three times daily before meals. Plus sliding scale. 0 Active Comment on above: Inject 8 Units subcu taneously three times daily before meals. Plus sliding scale. lactobacillus acidophilus [id number] unt oral capsule (2 sources) Lactobacillus acidophilus (PROBIOTIC) 10 billion cell cap probiotic as directed Active 0 Active Comment on above: probiotic as directe d Active lenalidomide (20 sources) Thalidomide Analog Start: 06-27-2022 End: 01-22-2023 Lenalidomide (Revlimid) 5 mg Capsule Discontinued 0 .ROUTE .COMPLEX June 27, 2022 3:37pm January 22, 2023 1:26pm TAKE 1 CAPSULE EVERY OTHER DAY.ADULT MALE AUTH#[id number] Start: 06-27-2022 End: 01-22-2023 Lenalidomide (Revlimid) 5 mg Capsule Discontinued 0 .ROUTE .COMPLEX June 27, 2022 4:37pm January 22, 2023 2:26pm TAKE 1 CAPSULE EVERY OTHER DAY.ADULT MALE AUTH#[id number] Start: 06-27-2022 Lenalidomide ( Revlimid) 5 mg Capsule Active 0 .ROUTE .COMPLEX June 27, 2022 4:37pm TAKE 1 CAPSULE EVERY OTHER DAY.ADULT MALE AUTH#[id number] Start: 06-27-2022 Lenalidomide ( Revlimid) 5 mg Capsule Active 0 .ROUTE .COMPLEX June 27, 2022 3:37pm TAKE 1 CAPSULE EVERY OTHER DAY.ADULT MALE AUTH#[id number] Start: 06-02-2022 End: 06-27-2022 Lenalidomide (Revlimid) 5 mg Capsule Discontinued 0 .ROUTE .COMPLEX June 02, 2022 12:16pm June 27, 2022 4:38pm TAKE 1 CAPSULE EVERY OTHER DAY.ADULT MALE AUTH#[id number] Start: 06-02-2022 End: 06-27-2022 Lenalidomide (Revlimid) 5 mg Capsule Discontinued 0 .ROUTE .COMPLEX June 02, 2022 11:16am June 27, 2022 3:38pm TAKE 1 CAPSULE EVERY OTHER DAY.ADULT MALE AUTH#[id number] Start: 06-02-2022 Lenalidomide ( Revlimid) 5 mg Capsule Active 0 .ROUTE .COMPLEX June 02, 2022 11:16am TAKE 1 CAPSULE EVERY OTHER DAY.ADULT MALE AUTH#[id number] Start: 05-02-2022 End: 06-02-2022 Lenalidomide (Revlimid) 5 mg Capsule Discontinued 0 .ROUTE .COMPLEX May 02, 2022 10:17am June 02, 2022 12:17pm TAKE 1 CAPSULE EVERY OTHER DAY.ADULT MALE AUTH#[id number] Start: 05-02-2022 End: 06-02-2022 Lenalidomide (Revlimid) 5 mg Capsule Discontinued 0 .ROUTE .COMPLEX May 02, 2022 9:17am June 02, 2022 11:17am TAKE 1 CAPSULE EVERY OTHER DAY.ADULT MALE AUTH#[id number] Start: 05-02-2022 Lenalidomide ( Revlimid) 5 mg Capsule Active 0 .ROUTE .COMPLEX May 02, 2022 10:17am TAKE 1 CAPSULE EVERY OTHER DAY.ADULT MALE AUTH#[id number] Start: 03-05-2022 End: 05-02-2022 Lenalidomide (Revlimid) 5 mg Capsule Discontinued 0 .ROUTE .COMPLEX March 04, 2022 11:00pm May 02, 2022 9:17am TAKE 1 CAPSULE EVERY OTHER DAY.ADULT MALE AUTH#[id number] Start: 03-05-2022 End: 05-02-2022 Lenalidomide (Revlimid) 5 mg Capsule Discontinued 0 .ROUTE .COMPLEX March 05, 2022 12:00am May 02, 2022 10:17am TAKE 1 CAPSULE EVERY OTHER DAY.ADULT MALE AUTH#[id number] Start: 03-05-2022 Lenalidomide ( Revlimid) 5 mg Capsule Active 0 .ROUTE .COMPLEX March 05, 2022 12:00am TAKE 1 CAPSULE EVERY OTHER DAY.ADULT MALE AUTH#[id number] Start: 11-13-2020 take 1 capsule by mo [facility] every other day Revlimid 5 mg oral capsule 5 mg = 1 cap(s), Oral, Every other day, # 30 cap(s), Refills(s) 0 Start Date: 11/13/20 Status: Ordered Start: 10-18-2020 End: 02-07-2022 take 1 capsule by mouth once daily Lenalidomide (Revlimid) 5 mg Capsule Discontinued 5 MG PO Daily January 07, 2022 11:02am February 07, 2022 7:33am swallow whole with glass of water; do not open, crush, chew , break, or dissolve.ADULT MALE AUTH#[id number] Start: 04-12-2020 End: 07-02-2020 Lenalidomide (Revlimid) 5 mg Capsule Discontinued 5 MG PO Every 48 hours 07 14May 07, 2020 8:01am July 02, 2020 8:52am swallow whole with glass of water; do not open, crush, chew , break, or dissolve take 1 tab every other day for 21 days of each 28 day cycle (total 11 tabs every month) Start: 03-08-2020 End: 03-14-2020 Lenalidomide (Revlimid) 25 m g Capsule Discontinued 25 MG PO Daily March 07, 2020 11:00pm March 14, 2020 2:32pm swallow whole with glass of water; do not open, crush, chew , break, or dissolve Take D1-14 every 28 day cycle with RVD loperamide hydrochloride 2 mg oral capsule (19 sources) Opioid Agonist Start: 10-15-2020 End: 08-20-2021 take 1 capsule by mouth four times daily Loperamide (Imodium) 2 mg Capsule Discontinued 2 MG PO Four times daily October 15, 2020 12:00am August 20, 2021 6:14pm MEN'S MULTI-VITAMIN ORAL (2 sources) MEN'S MULTI-VITAMIN ORAL Multi Vitamin Mens Active 0 Active Comment on above: Multi Vitamin Mens A ctive 24 hr metFORMIN hydrochloride 500 mg extended release oral tablet (20 sources) Biguanide Start: 12-23-2022 metFORMIN ER (GLUCOPHAGE XR) 500 mg 24 hr tablet Start: 11-26-2020 take 1 tablet by lakeshia th twice daily metformin 500 mg Tab 500 mg = 1 tab(s), Oral, BID, Refills(s) 0 Start Date: 12/10/21 Status: Ordered Start: 11-26-2020 take 1000 mg by mout h twice daily Metformin Active 1000 MG PO Twice daily November 26, 2020 12:00am Start: 03-04-2020 End: 03-10-2020 take 1000 mg by mouth twice daily Metformin Discontinued 1000 MG PO Twice daily March 03, 2020 11:00pm March 10, 2020 7:07am Methylprednisolone (19 sources) Corticosteroid Start: 03-04-2020 End: 03-10-2020 Methylprednisolone Discontin ued MG March 03, 2020 11:00pm March 10, 2020 7:07am Start: 03-04-2020 End: 03-10-2020 Methylprednisolone Discontin ued MG March 04, 2020 12:00am March 10, 2020 8:07am morphine sulfate 15 mg extended release oral tablet (19 sources) Opioid Agonist Start: 07-02-2020 End: 10-15-2020 take 15 mg by mouth every twelve hours Morphine Discontinued 15 MG PO Q12H July 02, 2020 12:00am October 15, 2020 10:39am currently only taking at night nitrofurantoin, macrocrystals 25 mg / nitrofurantoin, monohydrate 75 mg oral capsule (4 sources) Nitrofuran Antibacterial Start: 07-22-2023 take 1 capsule by mouth twice daily Macrobid 100 mg Cap 100 mg = 1 cap(s), Oral, BID, take 1 cap morning of cath change and 12hrs after, # 30 cap(s), Refills(s) 1, Pharmacy: [id number], 171, cm, 07/22/23 9:22:00 EST, Height/Length Dosing, 94, kg, 07/22/23 9:22:00 EST, Weight Dosing Start Date: 07/22/23 Status: Ordered pioglitazone 30 mg oral tablet (19 sources) Peroxisome Proliferator Receptor alpha Agonist, Peroxisome Proliferator Receptor gamma Agonist, Thiazolidinedione Start: 03-04-2020 End: 03-10-2020 take 30 mg by mouth once daily Pioglitazone Discontinued 30 MG PO Daily March 03, 2020 11:00pm March 10, 2020 7:07am potassium chloride 20 meq extended release oral tablet (20 sources) Start: 04-11-2022 End: 12-22-2022 take 20 mEq by mouth once daily Potassium Chloride Discontinued 20 MEQ PO Daily June 23, 2022 8:59am December 22, 2022 10:14am Start: 04-11-2022 take 20 mEq by mouth once gloria y Potassium Chloride Active 20 MEQ PO Daily April 11, 2022 9:03am Start: 11-13-2020 take 1 tablet by lakeshia twice daily potassium chloride 20 mEq ER Tab mEq tab(s), Oral, BID, Refills(s) 0 Start Date: 11/13/20 Status: Ordered Start: 10-15-2020 End: 04-11-2022 take 1 tablet by mouth once daily potassium chloride 20 mEq ER Tab 20 mEq = 1 tab(s), Oral, Daily, Refills(s) 0 Start Date: 11/13/20 Status: Ordered rosuvastatin calcium 5 mg oral tablet (19 sources) HMG-CoA Reductase Inhibitor Start: 03-10-2020 End: 10-15-2020 take 1 tablet by mouth once daily Rosuvastatin (Crestor) 5 mg tablet Discontinued 5 MG PO Daily March 09, 2020 11:00pm October 15, 2020 10:40am sennosides, detention 8.6 mg oral tablet (19 sources) Start: 03-10-2020 End: 04-27-2020 take 2 tablets by mouth once daily at bedtime Sennosides (Senna Lax) 8.6 mg Tablet Discontinued 2 TAB PO Daily at bedtime March 09, 2020 11:00pm April 27, 2020 3:13pm simvastatin 40 mg oral tablet (19 sources) HMG-CoA Reductase Inhibitor Start: 03-04-2020 End: 03-10-2020 take 40 mg by mouth at bedtime Simvastatin Discontinued 40 MG PO Bedtime March 03, 2020 11:00pm March 10, 2020 7:07am sulfamethoxazole 800 mg / trimethoprim 160 mg oral tablet (20 sources) Dihydrofolate Reductase Inhibitor Antibacterial, Sulfonamide Antimicrobial Start: 10-15-2020 End: 08-20-2021 take 1 tablet by mouth twice daily Sulfamethoxazole- Trimethoprim (Bactrim Ds) 800-160 mg Tablet Discontinued 1 TAB PO Twice daily October 15, 2020 12:00am August 20, 2021 6:14pm take 1 tablet by mouth once gloria y Bactrim DS 800-160 MG 1 tablet Orally THURSDAY, THURSDAY, THURSDAY ONCE A DAY Active terazosin 10 mg oral capsule (20 sources) alpha-Adrenergic Magdiel Start: 02-05-2022 End: 07-28-2022 take 10 mg by mouth once daily Terazosin Discontinued 10 MG PO Daily February 06, 2022 11:00pm July 28, 2022 10:13am Start: 01-28-2022 take 1 capsule by [facility] once daily at bedtime terazosin 10 mg Cap 10 mg = 1 cap(s), Oral, Once a day (at bedtime), # 30 cap(s), Refills(s) 1, Pharmacy: [id number], 180, cm, 01/28/22 8:49:00 EDT, Height/Length Dosing, 110, kg, 01/28/22 8:49:00 EDT, Weight Dosing Start Date: 01/28/22 Status: Ordered traMADol hydrochloride 50 mg oral tablet (20 sources) Opioid Agonist Start: 10-15-2020 End: 08-20-2021 Tramadol Discontinued 50 MG PO Daily October 15, 2020 12:00am August 20, 2021 6:14pm take half daily as needed for pain Start: 05-07-2020 End: 05-30-2020 take 50 mg by mouth every six hours Tramadol Discontinued 50 MG PO Q6H 60 30 May 06, 2020 11:00pm May 30, 2020 9:46am vitamin b12 1 mg oral tablet (19 sources) Vitamin B12 Start: 10-03-2021 End: 04-30-2022 take 1 tablet by mouth once daily Cyanocobalamin (Vitamin B-12) (Vitamin B-12) 1,000 mcg Tablet Discontinued 1000 MCG PO Daily October 03, 2021 12:00am April 30, 2022 8:35am Zinc (19 sources) Start: 07-02-2020 End: 10-15-2020 take 50 mg by mouth once daily Zinc Discontinued 50 MG PO Daily July 02, 2020 12:00am October 15, 2020 10:40am Start: 07-02-2020 End: 10-15-2020 take 50 mg by mouth once daily Zinc Discontinued 50 MG PO Daily July 02, 2020 1:00am October 15, 2020 11:40am zolpidem tartrate 5 mg oral tablet (19 sources) gamma-Aminobutyric Acid-ergic Agonist Start: 03-11-2020 End: 02-27-2021 take 1 tablet by mouth once daily at bedtime Zolpidem (Ambien) 5 mg tablet Discontinued 5 MG PO Daily at bedtime March 10, 2020 11:00pm February 27, 2021 1:43pm Problems Active Problems Problem Classification Problem Date Documented Date Episodic/Chronic Acute and unspecified renal failure (19 sources) Uremia; Translations: [Unspecified kidney failure] 03-14-2020 Chronic Administrative/social admission (7 sources) Patient encounter status; Translations: [Other specified counseling] 01-23-2023 Episodic Calculus of urinary tract (20 sources) Kidney stone; Translations: [Calculus of kidney] Onset: 10-30-19 Resolved : 10-30-19 Episodic Cancer of prostate (20 sources) Malignant neoplasm of prostate; Translations: [Malignant tumor of prostate] Onset: 09-04-19 Chronic Chronic kidney disease (20 sources) Chronic kidney disease stage 3; Translations: [Chronic kidney disease, stage 3 (moderate)] Onset: 05-08-2003-14-2020 Chronic Chronic kidney disease (8 sources) Chronic kidney disease; Translations: [Chronic kidney disease, stage III (moderate)] Onset: 10-30-19 Resolved : 10-30-19 Deficiency and other anemia (1 source) Other pancytopenia; Translations: [Other pancytopenia] Onset: 07-03-20 Chronic Deficiency and other anemia (3 sources) Anemia, unspecified; Translations: [Anemia, unspecified] Onset: 10-30-19 Resolved : 10-30-19 Episodic Deficiency and other anemia (20 sources) Iron deficiency anemia; Translations: [Iron deficiency anemia, unspecified] Onset: 02-12-2006-04-2020 Episodic Deficiency and other anemia (18 sources) Iron deficiency anemia, unspecified; Translations: [Iron deficiency anemia, unspecified] 04-16-2022 Episodic Diabetes mellitus with complications (7 sources) Type 2 diabetes mellitus; Translations: [Type 2 diabetes mellitus with hyperglycemia] Onset: 10-30-19 Resolved : 10-30-19 Chronic Diabetes mellitus without complication (20 sources) Type 2 diabetes mellitus without complication; Translations: [Type 2 diabetes mellitus without complications] Onset: 10-30-19 Resolved : 10-30-19 Chronic Diabetes mellitus without complication (20 sources) Glycosuria; Translations: [Glycosuria] Onset: 04-18-20 Episodic Disorders of lipid metabolism (20 sources) Hypercholesterolemia; Translations: [Pure hypercholesterolemia, unspecified] Onset: 09-04-1903-23-2019 Chronic Disorders of teeth and jaw (19 sources) Loss of teeth due to extraction; Translations: [Partial loss of teeth, unspecified cause, unspecified class] 03-08-2020 Episodic Essential hypertension (20 sources) Hypertensive disorder; Translations: [Essential (primary) hypertension] Onset: 10-30-19 Resolved : 10-30-1903-23-2019 Chronic Fluid and electrolyte disorders (20 sources) Hyperkalemia; Translations: [Hyperkalemia] Onset: 10-30-19 Resolved : 10-30-19 Episodic Genitourinary symptoms and ill-defined conditions (7 sources) Urinary incontinence; Translations: [Unspecified urinary incontinence] 01-23-2023 Chronic Genitourinary symptoms and ill-defined conditions (20 sources) History of urinary tract infection; Translations: [Personal history of urinary (tract) infections] Onset: 12-11-19 Episodic Hyperplasia of prostate (20 sources) Benign prostatic hypertrophy with outflow obstruction; Translations: [Benign prostatic hyperplasia with lower urinary tract symptoms] Onset: 12-11-19 Chronic Hypertension with complications and secondary hypertension (8 sources) Malignant hypertensive chronic kidney disease; Translations: [Hypertensive chronic kidney disease with stage 1 through stage 4 chronic kidney disease, or unspecified chronic kidney disease] Onset: 10-30-19 Resolved : 10-30-19 Chronic Maintenance chemotherapy; radiotherapy (20 sources) Patient encounter status; Translations: [Encounter for antineoplastic chemotherapy] 03-14-2020 Chronic Multiple myeloma (20 sources) Multiple myeloma; Translations: [Multiple myeloma not having achieved remission] Onset: 10-30-19 Resolved : 10-30-19 Chronic Nutritional deficiencies (19 sources) Vitamin D deficiency; Translations: [Vitamin D deficiency, unspecified] 03-14-2020 Chronic Nutritional deficiencies (20 sources) Cobalamin deficiency; Translations: [Deficiency of other specified B group vitamins] 03-14-2020 Episodic Osteoarthritis (1 source) Unspecified osteoarthritis, unspecified site; Translations: [UNSPECIFIED OSTEOARTHRITIS UNS SITE] Onset: 12-16-19 Chronic Other aftercare (1 source) Other nursing home (current) drug therapy; Translations: [[employer] CURRENT DRUG THERAPY] Onset: 12-16-19 Episodic Other aftercare (1 source) clinical account executive (current) use of insulin; Translations: [[employer] CURRENT USE OF INSULIN] Onset: 12-16-19 Episodic Other aftercare (1 source) clinical account executive (current) use of aspirin; Translations: [[facility] CURRENT USE OF ASPIRIN] Onset: 12-16-19 Episodic Other aftercare (1 source) penitentiary (current) use of oral hypoglycemic drugs; Translations: [[employer] USE ORAL HYPOGLYCEMIC DX] Onset: 12-16-19 Episodic Other circulatory disease (19 sources) Suspected heart failure; Translations: [Other specified symptoms and signs involving the circulatory and respiratory systems] 03-14-2020 Episodic Other diseases of bladder and urethra (8 sources) Detrusor overactivity; Translations: [Overactive bladder] Onset: 07-04-20 Chronic Other diseases of bladder and urethra (20 sources) Overactive bladder 07-04-2022 Chronic Other diseases of bladder and urethra (1 source) Overactive bladder; Translations: [OVERACTIVE BLADDER] Onset: 12-16-19 Chronic Other diseases of bladder and urethra (1 source) Other specified disorders of bladder; Translations: [OTHER SPECIFIED DISORDERS BLADDER] Onset: 08-04-20 Chronic Other diseases of bladder and urethra (4 sources) Neurogenic dysfunction of the urinary bladder; Translations: [Neuromuscular dysfunction of bladder, unspecified] Onset: 12-20-19 Chronic Other diseases of bladder and urethra (11 sources) Noncompliant bladder 12-19-2022 Chronic Other diseases of bladder and urethra (1 source) Neurogenic bladder; Translations: [Neuromuscular dysfunction of bladder, unspecified] Chronic Other diseases of bladder and urethra (1 source) Neuromuscular dysfunction of bladder, unspecified; Translations: [Neurogenic bladder] Onset: 04-15-20 Chronic Other diseases of kidney and ureters (19 sources) 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; Translations: [Other specified disorders of kidney and ureter] 03-14-2020 Chronic Other diseases of kidney and ureters (18 sources) Other specified disorders of kidney and ureter; Translations: [Other specified disorders of kidney and ureter] 04-16-2022 Chronic Other diseases of kidney and ureters (6 sources) Urinary tract obstruction; Translations: [Other obstructive and reflux uropathy] Onset: 12-11-19 Episodic Other diseases of kidney and ureters (9 sources) Hydronephrosis; Translations: [Unspecified hydronephrosis] Onset: 10-09-19 Episodic Other diseases of kidney and ureters (15 sources) Bilateral hydronephrosis 10-09-2022 Episodi c Other diseases of kidney and ureters (15 sources) Hydroureter 10-09-2022 Episodic Other diseases of kidney and ureters (15 sources) Hydroureteronephrosis 10-09-2022 Episodic Other diseases of kidney and ureters (7 sources) Unspecified hydronephrosis; Translations: [UNSPECIFIED HYDRONEPHROSIS] Onset: 10-14-19 Episodic Other diseases of kidney and ureters (1 source) Hydronephrosis with ureteral stricture, not elsewhere classified; Translations: [HYDRONEPHROSIS W/URETRL STRICT NEC] Onset: 12-16-19 Episodic Other diseases of kidney and ureters (15 sources) Stricture of ureter; Translations: [Crossing vessel and stricture of ureter without hydronephrosis] Onset: 12-20-19 Episodic Other diseases of kidney and ureters (1 source) Acquired stricture of ureter; Translations: [Crossing vessel and stricture of ureter without hydronephrosis] Episodic Other gastrointestinal disorders (19 sources) Occult blood in stools; Translations: [Other fecal abnormalities] 03-14-2020 Episodic Other gastrointestinal disorders (19 sources) Constipation; Translations: [Constipation, unspecified] 03-14-2020 Episodic Other hematologic conditions (4 sources) History of anemia vitamin B12 deficient; Translations: [Personal history of diseases of the blood and blood-forming organs and certain disorders involving the immune mechanism] 01-23-2023 Episodic Other hematologic conditions (3 sources) Personal history of diseases of the blood and blood-forming organs and certain disorders involving the immune mechanism; Translations: [Personal history of diseases of blood and blood-forming organs] 02-19-2023 Episodic Other nervous system disorders (3 sources) Polyneuropathy due to drug; 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 Other nervous system disorders (19 sources) Peripheral neuropathy due to and following chemotherapy; Translations: [Drug-induced polyneuropathy] 06-04-2020 Chronic Other nervous system disorders (18 sources) Drug-induced polyneuropathy; Translations: [Polyneuropathy due to other toxic agents] 04-16-2022 Chronic Other nervous system disorders (1 source) Polyneuropathy, unspecified; Translations: [POLYNEUROPATHY UNSPECIFIED] Onset: 12-16-19 Chronic Other nervous system disorders (1 source) Other acute postprocedural pain; Translations: [Acute post-operative pain] Onset: 03-05-20 Episodic Other non-traumatic joint disorders (15 sources) Shoulder pain; Translations: [Pain in left shoulder] 03-14-2020 Episodic Other non-traumatic joint disorders (4 sources) Pain in left shoulder; Translations: [Left shoulder pain] 03-14-2020 Episodic Other nutritional; endocrine; and metabolic disorders (2 sources) Hypophosphatemia; Translations: [Other disorders of phosphorus metabolism] Chronic Other nutritional; endocrine; and metabolic disorders (3 sources) Other disorders of phosphorus metabolism; 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 Other skin disorders (19 sources) Eruption; Translations: [Rash and other nonspecific skin eruption] 02-27-2021 Episodic Other skin disorders (18 sources) Rash and other nonspecific skin eruption; Translations: [Rash and other nonspecific skin eruption] 04-16-2022 Episodic Phlebitis; thrombophlebitis and thromboembolism (20 sources) Thrombophlebitis of superficial vein of left upper limb; Translations: [Phlebitis and thrombophlebitis of other sites] 05-07-2020 Episodic Residual codes; unclassified (3 sources) Bone marrow transplant status; 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 Chronic Residual codes; unclassified (3 sources) History of bone marrow transplant; 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 Chronic Residual codes; unclassified (11 sources) Family history of cancer; Translations: [Family history of malignant neoplasm of prostate] Onset: 12-11-19 Episodic Residual codes; unclassified (20 sources) Family history of prostate cancer 11-13-2020 Episodic Residual codes; unclassified (19 sources) Insomnia; Translations: [Insomnia, unspecified] 03-14-2020 Episodic Residual codes; unclassified (18 sources) Personal history of other medical treatment; Translations: [Other specified personal history presenting hazards to health] 04-16-2022 Episodic Residual codes; unclassified (1 source) Family history of malignant neoplasm of prostate; Translations: [FAMILY HX MALIG NEOPLASM PROSTATE] Onset: 12-16-19 Episodic Rheumatoid arthritis and related disease (20 sources) Rheumatoid arthritis; Translations: [Rheumatoid arthritis, unspecified] Onset: 12-16-1903-23-2019 Chronic Unclassified (20 sources) Asymptomatic microscopic hematuria 04-18-2022 Unclassified (14 sources) Finding of sensation of bladder 10-16-2022 Unclassified (1 source) CHRN KIDNEY DISEASE STG 3 UNSP; Translations: [CHRN KIDNEY DISEASE STG 3 UNSP] Onset: 12-16-19 Unclassified (1 source) CONTACT W/AND (SUSP) EXPOS COVID-19; Translations: [CONTACT W/AND (SUSP) EXPOS COVID-19] Onset: 08-27-19 23 Unclassified (1 source) Consult Onset: 01-08-20 Unclassified (1 source) Pain in left hip; Translations: [Pain in left hip] Onset: 02-20-20 Unclassified (1 source) Benign prostatic hyperplasia with lower urinary tract symptoms; Translations: [Benign prostatic hyperplasia with lower urinary tract symptoms] Onset: 11-18-19 Urinary tract infections (20 sources) Acute urinary tract infection; Translations: [Urinary tract infection, site not specified] Onset: 08-04-20 22 08-20-2021 Episodic Urinary tract infections (1 source) Urinary tract infections; Translations: [Urinary tract infection, site not specified] Onset: 11-11-19 Past or Other Problems Problem Classification Problem Date Documented Date Episodic/Chronic Acute and unspecified renal failure (20 sources) Acute kidney failure, unspecified; Translations: [Injury of kidney] Onset: 10-29-2021 Resolved: 10-29-2021 Episodic Non-Hodgkin`s lymphoma (1 source) Personal history of other malignant neoplasms of lymphoid, hematopoietic and related tissues; Translations: [PERS HX OTH MAL MAYCOL LYMPH AND HEMATOPET] Onset: 08-04-2022 Episodic Other aftercare (1 source) penitentiary (current) use of anticoagulants; Translations: [[facility] CURRNT USE ANTICOAGULANTS] Onset: 01-24-2022 Episodic Other diseases of bladder and urethra (1 source) Unspecified urethral stricture, male, meatal; Translations: [UNSP URETHRAL STRICTURE MALE MEATAL] Onset: 09-04-2022 Episodic Residual codes; unclassified (1 source) Other specified postprocedural states; Translations: [OTH SPECIFIED POSTPROCEDURAL STATES] Onset: 05-08-2022 Episodic Screening and history of mental health and substance abuse codes (1 source) Personal history of nicotine dependence; Translations: [PERSONAL HISTORY OF NICOTINE DEPEND] Onset: 09-04-2022 Episodic Spondylosis; intervertebral disc disorders; other back problems (1 source) Radiculopathy, cervical region; Translations: [Radiculopathy, cervical region] Onset: 11-27-2022 Episodic Results Test Name Value Interpretation Reference Range Facil ity Complete Blood Count Auto Di ffon 08-27-2023 Basophils (Bld) [#/Vol] 0.0 10*3/uL Normal 0.0-0.2 [facility] Comment on above: Result Comment: PERF ORMED BY:[address] [id number] MEDICAL DIRECTORMEAGAN HARDING M.D. Performed By: #### C MP, CBC ####[address] [address] [facility] Basophils/100 WBC (Bld) 0.3 % Normal . [facility] Comment on above: Performed By: #### C MP, CBC ####[address] [address] [facility] Eosinophils (Bld) [#/Vol] 0.7 10*3/uL High 0.0-0.45 [facility] Comment on above: Performed By: #### C MP, CBC ####[place] [id number] [facility] Eosinophils/100 WBC (Bld) 11.7 % Normal . [facility] Comment on above: Performed By: #### C MP, CBC ####[place] [id number] [facility] Erythrocyte distribution width (RBC) [Ratio] 17.3 % High 12.0-14.8 [facility] Comment on above: Performed By: #### C MP, CBC ####[address] [address] [facility] Hematocrit (Bld) [Volume fraction] 27.8 % Low 38.8-50.0 [facility] Comment on above: Performed By: #### C MP, CBC ####[place] [id number] [facility] Hemoglobin (Bld) [Mass/Vol] 9.4 g/dL Low 13.0-17.0 [facility] Comment on above: Performed By: #### C MP, CBC ####[place] [id number] [facility] Lymphocytes (Bld) [#/Vol] 0.7 10*3/uL Low 1.00-4.8 [facility] Comment on above: Performed By: #### C MP, CBC ####[address] [address] [facility] Lymphocytes/100 WBC (Bld) 12.2 % Normal . [facility] Comment on above: Performed By: #### C MP, CBC ####[address] [place] [address] [facility] MCH (RBC) [Entitic mass] 35.8 pg High 27.5-35.2 [facility] Comment on above: Performed By: #### C MP, CBC ####[address] [address] [facility] MCV (RBC) [Entitic vol] 106.1 fL High 83.5-101 [facility] Comment on above: Performed By: #### C MP, CBC ####[address] [address] [facility] Mean Corpuscular HGB Conc 33.8 g/dL Normal 32.5-35.6 [facility] Comment on above: Performed By: #### C MP, CBC ####[address] [address] [facility] Monocytes (Bld) [#/Vol] 0.5 10*3/uL Normal 0.0-0.8 [facility] Comment on above: Performed By: #### C MP, CBC ####[address] [address] [facility] Monocytes/100 WBC (Bld) 8.7 % Normal . [facility] Comment on above: Performed By: #### C MP, CBC ####[address] [address] [facility] Neutrophils (Bld) [#/Vol] 3.9 10*3/uL Normal 1.8-7.7 [facility] Comment on above: Performed By: #### C MP, CBC ####[address] [address] [facility] Neutrophils/100 WBC (Bld) 67.1 % Normal . [facility] Comment on above: Performed By: #### C MP, CBC ####[address] [address] [facility] NRBC% 0.0 /100{WBC} Normal 0-0.5 [facility] Comment on above: Performed By: #### C MP, CBC ####[address] [address] [facility] Platelet mean volume (Bld) [Entitic vol] 8.0 fL Normal 6.6-10.1 [facility] Comment on above: Performed By: #### C MP, CBC ####[address] [address] [facility] Platelets (Bld) [#/Vol] 176 10*3/uL Normal 150-450 [facility] Comment on above: Performed By: #### C MP, CBC ####[address] [address] [facility] RBC (Bld) [#/Vol] 2.62 10*6/uL Low 3.90-5.60 [facility] Comment on above: Performed By: #### C MP, CBC ####[place] [id number] [facility] WBC (Bld) [#/Vol] 5.8 10*3/uL Normal 4.1-10.5 [facility] Comment on above: Performed By: #### C MP, CBC ####[address] [address] [facility] Comprehensive Metabolic Pane mana 08-27-2023 Albumin [Mass/Vol] 4.0 g/dL Normal 3.5-5.7 [facility] Comment on above: Performed By: #### C MP, CBC ####[place] [id number] [facility] Albumin/Globulin [Mass ratio] 1.6 {ratio} Normal [facility] Comment on above: Performed By: #### C MP, CBC ####[place] [id number] [facility] ALP [Catalytic activity/Vol] 103 U/L Normal 34-104 [facility] Comment on above: Performed By: #### C MP, CBC ####[facility] [place] [address] [facility] ALT [Catalytic activity/Vol] 15 U/L Normal 7-52 [facility] Comment on above: Performed By: #### C MP, CBC ####[facility] [place] [address] [facility] Anion gap [Moles/Vol] 11.1 mmol/L Normal 6.0-15.0 [facility] Comment on above: Performed By: #### C MP, CBC ####[address] [place] [address] [facility] AST [Catalytic activity/Vol] 20 U/L Normal 13-39 [facility] Comment on above: Performed By: #### C MP, CBC ####[address] [address] [facility] Bilirubin [Mass/Vol] 0.4 mg/dL Normal 0.3-1.0 [facility] Comment on above: Performed By: #### C MP, CBC ####[address] [address] [facility] Calcium [Mass/Vol] 9.5 mg/dL Normal 8.6-10.3 [facility] Comment on above: Performed By: #### C MP, CBC ####[address] [address] [facility] Chloride [Moles/Vol] 107 mmol/L Normal 98-107 [facility] Comment on above: Performed By: #### C MP, CBC ####[address] [place] [address] [facility] CO2 [Moles/Vol] 25.1 mmol/L Normal 21.0-31.0 [facility] Comment on above: Performed By: #### C MP, CBC ####[facility] [place] [address] [facility] Creatinine [Mass/Vol] 1.96 mg/dL High 0.70-1.30 [facility] Comment on above: Performed By: #### C MP, CBC ####[address] [place] [address] [facility] Creatinine Clr Calc Pharmacy 36.30 [facility] Comment on above: Result Comment: PERF ORMED BY:[address] [place], [place] [phone] MEDICAL ANYA HARDING M.D. Performed By: #### C MP, CBC ####[address] [address] [place] GFR/1.73 sq M.predicted MDRD (S/P/Bld) [Vol rate/Area] 34.355 mL/min/{1.73_m2} [facility] Comment on above: Performed By: #### C MP, CBC ####[address] [address] [facility] Globulin (S) [Mass/Vol] 2.5 g/dL [facility] Comment on above: Performed By: #### C MP, CBC ####[address] [address] [facility] Glucose [Mass/Vol] 85 mg/dL Normal 70-100 [facility] Comment on above: Result Comment: Concrete Glucose Reference Range is dependent on time and content of last meal. Glucose of more than 200 mg/dL in a nonstressed, ambulatory subject supports the diagnosis of Diabetes Mellitus. ADA recommended reference range Performed By: #### C MP, CBC ####[address] [address] [facility] Potassium [Moles/Vol] 4.2 mmol/L Normal 3.5-5.1 [facility] Comment on above: Performed By: #### C MP, CBC ####[address] [address] [facility] Protein [Mass/Vol] 6.5 g/dL Normal 6.4-8.9 [facility] Comment on above: Performed By: #### C MP, CBC ####[address] [address] [facility] Sodium [Moles/Vol] 139 mmol/L Normal 136-145 [facility] Comment on above: Performed By: #### C MP, CBC ####[facility] [facility] [place] [address] [facility] Urea nitrogen [Mass/Vol] 31 mg/dL High 7-25 [facility] Comment on above: Performed By: #### C MP, CBC ####[facility] [place] [address] [facility] C Urineon 08-15-2023 Bacteria identified Cx Nom (U) Microbiology PROCEDURE: Urine Culture [R1] SOURCE: U Cath BODY SITE: COLLECTED DATE/TIME: 08/11/2023 11:05 EST RECEIVED DATE/TIME: 08/11/2023 12:44 EST START DATE/TIME: 08/11/2023 12:44 EST FREE TEXT SOURCE: Diego RICKS, Vesna Cortez MD, Vesna Taylor FINAL REPORTS Final Report [] Verified Date/Time: 08/15/2023 10:39 EST 10,000 cfu/ml Yanci albicans Presumptive isolated. 400 cfu/ml Stenotrophomonas maltophilia isolated. SUSCEPTIBILITY RESULTS __ LEGEND: S=Susceptible, N/R=Not Reported, Blank=Data not available, or drug not advisable or tested, I=Intermediate, ESBL=Extended spectrum beta-lactamase, R=Resistant, TFG=Thymidine-dependen t strain, RADHA=Beta-lactamase positive, DEEPA=mcg/m;(mg/L), S*=Predicted susceptible interp, R*=Predicted resistant interp Stemal Antibiotic DEEPA Dilutn DEEPA Interp Levofloxacin >4 R Trimethoprim/ <=2/38 S Sulfa Performing Locations R1: This test was performed at: [facility], [address] [place] [address], [id number]- , [place], Normal [facility] Comment on above: Performed By: #### [id number] #### [facility] [address] [place] [id number] Complete Blood Count Auto Di ffon 08-11-2023 Basophils (Bld) [#/Vol] 0.0 10*3/uL Normal 0.0-0.2 [facility] Comment on above: Result Comment: PERF ORMED BY:[address] [id number] MEDICAL ANYA HARDING M.D. Performed By: #### C AYDEE, CMP ####[place] [id number] [facility] Basophils/100 WBC (Bld) 0.3 % Normal . [facility] Comment on above: Performed By: #### C BC, CMP ####[place] [id number] [facility] Eosinophils (Bld) [#/Vol] 0.8 10*3/uL High 0.0-0.45 [facility] Comment on above: Performed By: #### C BC, CMP ####[place] [id number] [facility] Eosinophils/100 WBC (Bld) 11.2 % Normal . [facility] Comment on above: Performed By: #### C BC, CMP ####[place] [id number] [facility] Erythrocyte distribution width (RBC) [Ratio] 16.5 % High 12.0-14.8 [facility] Comment on above: Performed By: #### C BC, CMP ####[address] Hematocrit (Bld) [Volume fraction] 30.7 % Low 38.8-50.0 [facility] Comment on above: Performed By: #### C BC, CMP ####[address] Hemoglobin (Bld) [Mass/Vol] 10.6 g/dL Low 13.0-17.0 [facility] Comment on above: Performed By: #### C BC, CMP ####[address] Lymphocytes (Bld) [#/Vol] 1.0 10*3/uL Normal 1.00-4.8 [facility] Comment on above: Performed By: #### C BC, CMP ####[address] Lymphocytes/100 WBC (Bld) 13.6 % Normal . [facility] Comment on above: Performed By: #### C BC, CMP ####[address] MCH (RBC) [Entitic mass] 36.7 pg High 27.5-35.2 [facility] Comment on above: Performed By: #### C BC, CMP ####[address] MCV (RBC) [Entitic vol] 105.7 fL High 83.5-101 [facility] Comment on above: Performed By: #### C BC, CMP ####[address] Mean Corpuscular HGB Conc 34.7 g/dL Normal 32.5-35.6 [facility] Comment on above: Performed By: #### C BC, CMP ####[address] Monocytes (Bld) [#/Vol] 0.6 10*3/uL Normal 0.0-0.8 [facility] Comment on above: Performed By: #### C BC, CMP ####[place] [id number] [facility] Monocytes/100 WBC (Bld) 8.0 % Normal . [facility] Comment on above: Performed By: #### C BC, CMP ####[address] [address] [facility] Neutrophils (Bld) [#/Vol] 4.9 10*3/uL Normal 1.8-7.7 [facility] Comment on above: Performed By: #### C BC, CMP ####[place] [id number] [facility] Neutrophils/100 WBC (Bld) 66.9 % Normal . [facility] Comment on above: Performed By: #### C BC, CMP ####[address] [address] [facility] NRBC% 0.0 /100{WBC} Normal 0-0.5 [facility] Comment on above: Performed By: #### C BC, CMP ####[address] [address] [facility] Platelet mean volume (Bld) [Entitic vol] 7.9 fL Normal 6.6-10.1 [facility] Comment on above: Performed By: #### C BC, CMP ####[address] [address] [facility] Platelets (Bld) [#/Vol] 189 10*3/uL Normal 150-450 [facility] Comment on above: Performed By: #### C BC, CMP ####[address] [address] [facility] RBC (Bld) [#/Vol] 2.90 10*6/uL Low 3.90-5.60 [facility] Comment on above: Performed By: #### C BC, CMP ####[place] [id number] [facility] WBC (Bld) [#/Vol] 7.4 10*3/uL Normal 4.1-10.5 [facility] Comment on above: Performed By: #### C BC, CMP ####[address] [address] [facility] Comprehensive Metabolic Pane mana 08-11-2023 Albumin [Mass/Vol] 4.2 g/dL Normal 3.5-5.7 [facility] Comment on above: Performed By: #### C BC, CMP ####[place] [id number] [facility] Albumin/Globulin [Mass ratio] 1.6 {ratio} Normal [facility] Comment on above: Performed By: #### C AYDEE, CMP ####[address] [address] [facility] ALP [Catalytic activity/Vol] 111 U/L High 34-104 [facility] Comment on above: Performed By: #### C BC, CMP ####[address] [address] [facility] ALT [Catalytic activity/Vol] 22 U/L Normal 7-52 [facility] Comment on above: Performed By: #### C AYDEE, CMP ####[address] [address] [facility] Anion gap [Moles/Vol] 11.2 mmol/L Normal 6.0-15.0 [facility] Comment on above: Performed By: #### C BC, CMP ####[address] [address] [facility] AST [Catalytic activity/Vol] 22 U/L Normal 13-39 [facility] Comment on above: Performed By: #### C BC, CMP ####[address] [address] [facility] Bilirubin [Mass/Vol] 0.5 mg/dL Normal 0.3-1.0 [facility] Comment on above: Performed By: #### C BC, CMP ####[address] [address] [facility] Calcium [Mass/Vol] 9.3 mg/dL Normal 8.6-10.3 [facility] Comment on above: Performed By: #### C BC, CMP ####[address] [place] [address] [facility] Chloride [Moles/Vol] 109 mmol/L High 98-107 [facility] Comment on above: Performed By: #### C BC, CMP ####[address] [place] [address] [facility] CO2 [Moles/Vol] 21.2 mmol/L Normal 21.0-31.0 [facility] Comment on above: Performed By: #### C BC, CMP ####[address] [place] [address] [facility] Creatinine [Mass/Vol] 2.06 mg/dL High 0.70-1.30 [facility] Comment on above: Performed By: #### C BC, CMP ####[address] [address] [facility] Creatinine Clr Calc Pharmacy 34.54 [facility] Comment on above: Result Comment: PERF ORMED BY:[address] [place], [place] [id number] MEDICAL ANYA HARDING M.D. Performed By: #### C BC, CMP ####[address] [address] [facility] GFR/1.73 sq M.predicted MDRD (S/P/Bld) [Vol rate/Area] 32.364 mL/min/{1.73_m2} [facility] Comment on above: Performed By: #### C BC, CMP ####[address] [address] [facility] Globulin (S) [Mass/Vol] 2.6 g/dL [facility] Comment on above: Performed By: #### C BC, CMP ####[address] [address] [facility] Glucose [Mass/Vol] 117 mg/dL High 70-100 [facility] Comment on above: Result Comment: Concrete om Glucose Reference Range is dependent on time and content of last meal. Glucose of more than 200 mg/dL in a nonstressed, ambulatory subject supports the diagnosis of Diabetes Mellitus. ADA recommended reference range Performed By: #### C BC, CMP ####[facility] [place] [address] [facility] Potassium [Moles/Vol] 4.4 mmol/L Normal 3.5-5.1 [facility] Comment on above: Performed By: #### C BC, CMP ####[address] [place] [address] [facility] Protein [Mass/Vol] 6.8 g/dL Normal 6.4-8.9 [facility] Comment on above: Performed By: #### C BC, CMP ####[address] [address] [facility] Sodium [Moles/Vol] 137 mmol/L Normal 136-145 [facility] Comment on above: Performed By: #### C BC, CMP ####[address] [address] [facility] Urea nitrogen [Mass/Vol] 30 mg/dL High 7-25 [facility] Comment on above: Performed By: #### C BC, CMP ####[address] [place] [address] [facility] Complete Blood Count Auto Di ffon 07-31-2023 Basophils (Bld) [#/Vol] 0.0 10*3/uL Normal 0.0-0.2 [facility] Comment on above: Result Comment: PERF ORMED BY:[address] [place], [place] [id number] MEDICAL DIRECTORMEAGAN HARDING M.D. Performed By: #### C MP, CBC ####[address] [address] [facility] Basophils/100 WBC (Bld) 0.7 % Normal . [facility] Comment on above: Performed By: #### C MP, CBC ####[address] [address] [place] Eosinophils (Bld) [#/Vol] 0.7 10*3/uL High 0.0-0.45 [facility] Comment on above: Performed By: #### C MP, CBC ####[address] Eosinophils/100 WBC (Bld) 10.3 % Normal . [facility] Comment on above: Performed By: #### C MP, CBC ####[address] Erythrocyte distribution width (RBC) [Ratio] 16.6 % High 12.0-14.8 [facility] Comment on above: Performed By: #### C MP, CBC ####[address] Hematocrit (Bld) [Volume fraction] 29.8 % Low 38.8-50.0 [facility] Comment on above: Performed By: #### C MP, CBC ####[address] Hemoglobin (Bld) [Mass/Vol] 10.0 g/dL Low 13.0-17.0 [facility] Comment on above: Performed By: #### C MP, CBC ####[address] Lymphocytes (Bld) [#/Vol] 0.8 10*3/uL Low 1.00-4.8 [facility] Comment on above: Performed By: #### C MP, CBC ####[address] Lymphocytes/100 WBC (Bld) 11.4 % Normal . [facility] Comment on above: Performed By: #### C MP, CBC ####[address] MCH (RBC) [Entitic mass] 36.1 pg High 27.5-35.2 [facility] Comment on above: Performed By: #### C MP, CBC ####[address] [place] [address] [place] MCV (RBC) [Entitic vol] 107.4 fL High 83.5-101 [facility] Comment on above: Performed By: #### C MP, CBC ####[address] Mean Corpuscular HGB Conc 33.6 g/dL Normal 32.5-35.6 [facility] Comment on above: Performed By: #### C MP, CBC ####[address] Monocytes (Bld) [#/Vol] 0.5 10*3/uL Normal 0.0-0.8 [facility] Comment on above: Performed By: #### C MP, CBC ####[address] Monocytes/100 WBC (Bld) 7.2 % Normal . [facility] Comment on above: Performed By: #### C MP, CBC ####[address] Neutrophils (Bld) [#/Vol] 5.1 10*3/uL Normal 1.8-7.7 [facility] Comment on above: Performed By: #### C MP, CBC ####[address] Neutrophils/100 WBC (Bld) 70.4 % Normal . [facility] Comment on above: Performed By: #### C MP, CBC ####[address] NRBC% 0.2 /100{WBC} Normal 0-0.5 [facility] Comment on above: Performed By: #### C MP, CBC ####[address] Platelet mean volume (Bld) [Entitic vol] 9.0 fL Normal 6.6-10.1 [facility] Comment on above: Performed By: #### C MP, CBC ####[place] [id number] [facility] Platelets (Bld) [#/Vol] 174 10*3/uL Normal 150-450 [facility] Comment on above: Performed By: #### C MP, CBC ####[address] [address] [facility] RBC (Bld) [#/Vol] 2.78 10*6/uL Low 3.90-5.60 [facility] Comment on above: Performed By: #### C MP, CBC ####[place] [id number] [facility] WBC (Bld) [#/Vol] 7.2 10*3/uL Normal 4.1-10.5 [facility] Comment on above: Performed By: #### C MP, CBC ####[address] [address] [facility] Comprehensive Metabolic Pane mana 07-31-2023 Albumin [Mass/Vol] 4.0 g/dL Normal 3.5-5.7 [facility] Comment on above: Performed By: #### C MP, CBC ####[place] [id number] [facility] Albumin/Globulin [Mass ratio] 1.7 {ratio} Normal [facility] Comment on above: Performed By: #### C MP, CBC ####[address] [address] [facility] ALP [Catalytic activity/Vol] 101 U/L Normal 34-104 [facility] Comment on above: Performed By: #### C MP, CBC ####[place] [id number] [facility] ALT [Catalytic activity/Vol] 19 U/L Normal 7-52 [facility] Comment on above: Performed By: #### C MP, CBC ####[place] [id number] [facility] Anion gap [Moles/Vol] 11.5 mmol/L Normal 6.0-15.0 [facility] Comment on above: Performed By: #### C MP, CBC ####[facility] [place] [address] [facility] AST [Catalytic activity/Vol] 19 U/L Normal 13-39 [facility] Comment on above: Performed By: #### C MP, CBC ####[place] [address] [place] [address] [facility] Bilirubin [Mass/Vol] 0.3 mg/dL Normal 0.3-1.0 [facility] Comment on above: Performed By: #### C MP, CBC ####[address] [address] [facility] Calcium [Mass/Vol] 9.1 mg/dL Normal 8.6-10.3 [facility] Comment on above: Performed By: #### C MP, CBC ####[address] [address] [facility] Chloride [Moles/Vol] 107 mmol/L Normal 98-107 [facility] Comment on above: Performed By: #### C MP, CBC ####[address] [address] [facility] CO2 [Moles/Vol] 25.9 mmol/L Normal 21.0-31.0 [facility] Comment on above: Performed By: #### C MP, CBC ####[address] [address] [facility] Creatinine [Mass/Vol] 2.09 mg/dL High 0.70-1.30 [facility] Comment on above: Performed By: #### C MP, CBC ####[address] [address] [facility] Creatinine Clr Calc Pharmacy 34.04 Normal [facility] Comment on above: Result Comment: PERF ORMED BY:[place] [address] [address] [place], [place] [phone] MEDICAL DIRECTORMEAGAN HARDING M.D. Performed By: #### C MP, CBC ####[address] [address] [facility] GFR/1.73 sq M.predicted MDRD (S/P/Bld) [Vol rate/Area] 31.807 mL/min/{1.73_m2} [facility] Comment on above: Performed By: #### C MP, CBC ####[place] [id number] [facility] Globulin (S) [Mass/Vol] 2.3 g/dL [facility] Comment on above: Performed By: #### C MP, CBC ####[place] [id number] [facility] Glucose [Mass/Vol] 164 mg/dL High 70-100 [facility] Comment on above: Result Comment: [facility] Glucose Reference Range is dependent on time and content of last meal. Glucose of more than 200 mg/dL in a nonstressed, ambulatory subject supports the diagnosis of Diabetes Mellitus. ADA recommended reference range Performed By: #### C MP, CBC ####[address] Potassium [Moles/Vol] 4.4 mmol/L Normal 3.5-5.1 [facility] Comment on above: Performed By: #### C MP, CBC ####[place] [id number] [facility] Protein [Mass/Vol] 6.3 g/dL Low 6.4-8.9 [facility] Comment on above: Performed By: #### C MP, CBC ####[place] [id number] [facility] Sodium [Moles/Vol] 140 mmol/L Normal 136-145 [facility] Comment on above: Performed By: #### C MP, CBC ####[place] [id number] [facility] Urea nitrogen [Mass/Vol] 25 mg/dL Normal 7-25 [facility] Comment on above: Performed By: #### C MP, CBC ####[place] [id number] [facility] Ambulatory Visit Summaryon 1 09-22-2022 Ambulatory Visit Summary PATSY MILLS :1945 Visit Date:07/22/2023 Ambulatory Visit Instructions Your Diagnosis Hydroureteronephrosis Ureteral stricture Noncompliant bladder Prostate cancer BPH with urinary obstruction Incomplete bladder emptying OAB (overactive bladder) Family history of prostate cancer in father Kidney stones Your Care Team Attending Physician - Diego RICKS, Vesna Taylor Primary Care Physician - HELEN HEATH MD This Is Your Medications List nitrofurantoin (Macrobid 100 mg Cap) Contact prescribing physician if questions or concerns acyclovir (Zovirax 400 mg Tab) aspirin (aspirin 81 mg Chew Tab) atorvastatin (atorvastatin 20 mg Tab) bifidobacterium-lactob acillus (Probiotic + Colostrum) cholecalciferol (Vitamin D3 2000 intl units) famotidine (famotidine 20 mg Tab) insulin glargine (Lantus insulin) insulin lispro (Humalog) lenalidomide (Revlimid 5 mg oral capsule) losartan (losartan 25 mg Tab) metformin (metformin 500 mg Tab) oxybutynin (oxybutynin 10 mg ER Tab) potassium chloride (potassium chloride 20 mEq ER Tab) Procedures Performed Cystoscopic replacement of ureteric stent (06/10/2023), ESWL of kidney (06/10/2023), Cystostomy and insertion of suprapubic tube (03/05/2023), Cystoscopic insertion of ureteric stent (12/10/2022), TURP - Transurethral resection of prostate (08/27/2022), Transurethral insertion of prostatic urethral lift implant (05/05/2022), Cystoscopic removal of ureteric stent (08/20/2012), Cystoscopic ureteroneocystostomy with insertion 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 Discharge Vitals Heart Rate (Peripheral) 74 Blood Pressure 128/84 Height 171 cm Height 67 in Weight 94 kg Weight 206.8 lb BMI 32.15 What to do next Scheduled Follow-Up Appointments Thursday 10:30 AM EST Where: [facility] Patient Educationon 07-22-20 23 Patient Education Urology Ureteral Stent Implantation, Care After The following information offers guidance on how to care for yourself after your procedure. Your health care provider may also give you more specific instructions. If you have problems or questions, contact your health care provider. What can I expect after the procedure? After the procedure, it is common to have: ? Nausea. ? Mild pain when you urinate. You may feel this pain in your lower back or lower abdomen. The pain should stop within a few minutes after you urinate. This pattern may last for up to 1 week. ? A small amount of blood in your urine for several days. Follow these instructions at home: Medicines ? Take hajn-uic-juuhgas and prescription medicines only as told by your health care provider. ? If you were prescribed antibiotics, take them as told by your health care provider. Do not stop using the antibiotic even if you start to feel better. ? If you were given a sedative during the procedure, it can affect you for several hours. Do not drive or operate machinery until your health care provider says that it is safe. ? Ask your health care provider if the medicine prescribed to you: ? Requires you to avoid driving or using machinery. ? Can cause constipation. You may need to take these actions to prevent or treat constipation: ? Take ehyr-qrh-gfobotw or prescription medicines. ? Eat foods that are high in fiber, such as beans, whole grains, and fresh fruits and vegetables. ? Limit foods that are high in fat and processed sugars, such as fried or sweet foods. Activity ? Rest as told by your health care provider. ? Do not sit for a long time without moving. Get up to take short walks every 1?2 hours. This will improve blood flow and breathing. Ask for help if you feel weak or unsteady. ? Return to your normal activities as told by your health care provider. Ask your health care provider what activities are safe for you. General instructions ? If you have a catheter: ? Follow instructions from your health care provider about taking care of your catheter and collection bag. ? Do not take baths, swim, or use a hot tub until your health care provider approves. Ask your health care provider if you may take showers. You may only be allowed to take sponge baths. ? Drink enough fluid to keep your urine pale yellow. ? Do not use any products that contain nicotine or tobacco. These products include cigarettes, chewing tobacco, and vaping devices, such as e-cigarettes. These can delay healing after surgery. If you need help quitting, ask your health care provider. ? Keep all follow-up visits. Contact a health care provider if: ? You start passing blood clots, or you have more than a small amount of blood in your urine. ? You have pain that gets worse or does not get better with medicine, especially pain when you urinate. ? You have trouble urinating. ? You feel nauseous or you vomit again and again during a period of more than 2 days after the procedure. ? You have a fever. Get help right away if: ? You are passing blood clots that are 1 inch (2.5 cm) or larger in size. ? You are leaking urine (have incontinence), or you cannot urinate. ? The end of the stent comes out of your urethra. ? You have sudden, sharp, or severe pain in your abdomen or lower back. ? You have swelling or pain in your legs. ? You have trouble breathing. These symptoms may be an emergency. Get help right away. Call 911. ? Do not wait to see if the symptoms will go away. ? Do not drive yourself to the hospital. Summary ? After the procedure, it is common to have mild pain when you urinate that goes away within a few minutes after you urinate. This may last for up to 1 week. ? Take dckw-tee-ngngkdk and prescription medicines only as told by your health care provider. ? Drink enough fluid to keep your urine pale yellow. ? Call your health care provider if you start passing blood clots, or you have more than a small amount of blood in your urine. This information is not intended to replace advice given to you by your health care provider. Make sure you discuss any questions you have with your health care provider. Document Revised: 09/08/2022 Document Reviewed: 09/08/2022 [employer] Patient Education ? 2022 [employer] Suprapubic Catheter Replacement Suprapubic catheter replacement is a procedure to remove an old catheter and insert a new, clean catheter. A suprapubic catheter is a rubber tube that drains urine from the bladder into a collection bag outside the body. The catheter is inserted into the bladder through a small opening in the lower abdomen, near the center of the body, above the pubic bone (suprapubicarea). There is a tiny balloon filled with germ-free (sterile) water on the end of the catheter that is in the bladder. The balloon helps to keep the catheter in place. If you need to wear a catheter (more content not included)... Normal [facility] Urology Office/Clinic Noteon 07-22-2023 Urology Office/Clinic Note Chief Complaint SP change HPI Staff Last seen in our office 05/15/23 for S/P tube change- No issues with this DX: Hydroureteronephrosis, Ureteral Stricture, Noncompliant Bladder, Prostate Cancer, BPH, Incomplete Bladder Emptying, OAB, Kidney Stone & Family Hx of Prostate Cancer ACTIVE SURVEILLANCE *Oxybutynin 10mg QHS therapy.- He states this is working good +C&S 05/28/23 (at time of S/P Tube Change *>100k Enterobacter cloacae Tx'd w/Levaquin 500 x7days He states he had no issues with this, he did finish Last seen by Dr Brook Huddleston 05/28/23 +C&S 06/01/23 (part of PST's) *>100k Enterobacter cloacae (pt still on Levaquin therapy) S/P Lt ESWL/ Stent exchange & S/P Tube change Pt's called 07/02/23 stating the S/P tube was possible blocked. Pt came into our office for S/P tube change. +C&S at that time 10k Staphylococcus epidermidis (per EMR message, pt still on Levaquin therapy) KUB done 07/14/23 History of Present Illness Tests reviewed: reviewed KUB, operative reports I have reviewed the previous health record information and history for this patient from Dr. Cortez. I have reviewed and verified the staff HPI to be accurate for this encounter. Review of Systems PHQ Score Initial Depression Screen Score: 0 SCORE ROS - Provider Constitutional: denies weight loss, denies hot flashes. Eyes: denies eye problems. Gastrointestinal: denies nausea, denies vomiting. Cardiovascular: denies chest pain or angina. Integumentary: no dryness Musculoskeletal: denies musculoskeletal symptoms. ENMT: denies otolaryngeal symptoms. Respiratory: no shortness of breath. Heme/Lymph: denies easy bleeding tendency, denies easy bruising tendency. Psychiatric: no confusion, no anxiety. Genitourinary: See HPI. Physical Exam Vitals & Measurements HR: 74(Peripheral) BP: 128/84 HT: 67 in HT: 171 cm WT: 94 kg WT: 206.8 lb BMI: 32.15 General Appearance: alert, no distress, well nourished, well developed male. Genitourinary: normal scrotum, normal testes, normal urethra, normal epididymis, normal vas deferens/spermatic cord. Flank Pain: none. Bladder: nonpalpable. Procedure The patient denies seeing blood in the urine, fever, or chills. There have been no complications since the last tube change. The SP tube 16 fr 2-way bond catheter has been changed today in the office without difficulty, and the tube irrigated to ensure proper placement. 15 cc in balloon. Bond catheter is placed to leg bag drainage. The patient should increase fluid intake to keep the urine clear. He should go to the ER for significant bleeding, blocked catheter, or fever or chills. Assessment/Plan 78 year old male with complex urologic history s/p urolift, TURP, incidental finding of fav intermediate risk prostate cancer on active surveillance, found to have right distal ureteral stricture, non-compliant small bladder with BL VUR, acute on chronic renal failure. He was referred to Dr. Daisy Feliciano for further evaluation regarding recommendations of SP tube, stent, definitive care which is more invasive (cystectomy). He is s/p right stent placement and SP tube. Here for continued routine exchanges. He declined invasive treatment at this time. Hx of multiple myeloma s/p tx, currently in remission. Sees Dr. Huddleston - no contraindications to proceed with any treatments or interventions [1] THERESA N/A, pt inactive (1). [2] Pt is here with his . Follows with nephro. 1. 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 Again discussed indication for Botox. This will allow him to discontinue oxybutynin, which he is having dry mouth from elects to and hopefully help expand his bladder. Patient elects to proceed at the time of stent exchange -Cont Oxybutynin 10 mg BID, tolerating adequately however having dry mouth. Helping symptoms. -Botox 100u at time of SPT/R stent exchange in Sep 2023. The procedural risks, benefits, details, and treatment alternatives have been discussed with the patient. These include bleeding, infection, continued problems with overactive bladder, inability to empty the bladder which could require an indwelling catheter or need for in/out catheterization to empty the bladder, and need for repeat procedures over time (usually lasts up to six months), as well as fatigue and insomnia, among others. There is a minimal risk of Botox entering the blood stream and causing neurological problems, which is quite rare. Full informed consent has been obtained. Will order General anesthesia. -Continue SP tube every 3 week exchanges. Exchanged today without difficulty. Ordered: [id number] Change Cystostomy Tube Urology Procedure Order Urology Procedure Order 2. OAB (overactive bladder) (N32.81: Overactive bladder) Baseline very severe lower urinary tract symptoms. No improve (more content not included)... Normal [facility] Comment on above: Result Comment: Elec tronically Signed By: Vesna Cortez MD\.br\Date and Time Signed: 07/22/23 18:39 EST\.br\Electronically Co-Signed By: Cornelia De Leon\.br\Date and Time Co-Signed: 07/22/23 10:16 EST RAD - MISCon 07-16-2023 RAD - MISC [id number] 10 [id number]#[id number] 0TIFF Normal [facility] Alanine aminotransferase [En zymatic activity/volume] in Serum or PlasmaOrdered By: Brook Huddleston on 07-14-2023 ALT [Catalytic activity/Vol] 14 U/L 7-52 [facility] Albumin [Mass/volume] in Ser um or Plasma by Bromocresol green (BCG) dye binding methoOrdered By: Brook Huddleston on 07-14-2023 Albumin BCG dye [Mass/Vol] 3.9 g/dL 3.5-5.7 [facility] Alkaline phosphatase [Enzyma tic activity/volume] in Serum or PlasmaOrdered By: Brook Huddleston on 07-14-2023 ALP [Catalytic activity/Vol] 96 U/L 34-104 [facility] Aspartate aminotransferase [ Enzymatic activity/volume] in Serum or PlasmaOrdered By: Brook Flaquito on 07-14-2023 AST [Catalytic activity/Vol] 17 U/L 13-39 [facility] Basophils Auto (Bld) [#/Vol] Ordered By: Brook Flaquito on 07-14-2023 Basophils (Bld) [#/Vol] 0.0 10*3/uL 0.0-0.2 [facility] Basophils/100 WBC Auto (Bld) Ordered By: Brook Huddleston on 07-14-2023 Basophils/100 WBC (Bld) 0.3 % . [facility] Bilirubin.total [Mass/volume ] in Serum or PlasmaOrdered By: Brook Huddleston on 07-14-2023 Bilirubin [Mass/Vol] 0.4 mg/dL 0.3-1.0 [facility] Calcium [Mass/volume] in Ser um or PlasmaOrdered By: Brook Huddleston on 07-14-2023 Calcium [Mass/Vol] 8.8 mg/dL 8.6-10.3 [facility] Carbon dioxide, total [Moles /volume] in Serum or PlasmaOrdered By: Brook Huddleston on 07-14-2023 CO2 [Moles/Vol] 25.2 mmol/L 21.0-31.0 [facility] Chloride [Moles/volume] in S valeria or PlasmaOrdered By: Brook Huddleston on 07-14-2023 Chloride [Moles/Vol] 109 mmol/L 98-107 [facility] Complete Blood Count Auto Di ffon 07-14-2023 Basophils (Bld) [#/Vol] 0.0 10*3/uL Normal 0.0-0.2 [facility] Comment on above: Result Comment: PERF ORMED BY:[facility] [place], [place] [phone] MEDICAL DIRECTORMEAGAN HARDING M.D. Performed By: #### C BC, [facility] ####[facility] [place] [address] [facility] Basophils/100 WBC (Bld) 0.3 % Normal . [facility] Comment on above: Performed By: #### C BC, CMP ####[address] [address] [facility] Eosinophils (Bld) [#/Vol] 0.3 10*3/uL Normal 0.0-0.45 [facility] Comment on above: Performed By: #### C BC, CMP ####[address] [address] [facility] Eosinophils/100 WBC (Bld) 3.4 % Normal . [facility] Comment on above: Performed By: #### C BC, CMP ####[address] [address] [facility] Erythrocyte distribution width (RBC) [Ratio] 16.5 % High 12.0-14.8 [facility] Comment on above: Performed By: #### C BC, CMP ####[place] [id number] [facility] Hematocrit (Bld) [Volume fraction] 28.7 % Low 38.8-50.0 [facility] Comment on above: Performed By: #### C BC, CMP ####[place] [id number] [facility] Hemoglobin (Bld) [Mass/Vol] 9.6 g/dL Low 13.0-17.0 [facility] Comment on above: Performed By: #### C BC, CMP ####[place] [id number] [facility] Lymphocytes (Bld) [#/Vol] 1.1 10*3/uL Normal 1.00-4.8 [facility] Comment on above: Performed By: #### C BC, CMP ####[place] [id number] [facility] Lymphocytes/100 WBC (Bld) 13.4 % Normal . [facility] Comment on above: Performed By: #### C BC, CMP ####[place] [id number] [facility] MCH (RBC) [Entitic mass] 36.1 pg High 27.5-35.2 [facility] Comment on above: Performed By: #### C BC, CMP ####[address] [address] [facility] MCV (RBC) [Entitic vol] 107.8 fL High 83.5-101 [facility] Comment on above: Performed By: #### C BC, CMP ####[address] [address] [facility] Mean Corpuscular HGB Conc 33.5 g/dL Normal 32.5-35.6 [facility] Comment on above: Performed By: #### C BC, CMP ####[address] [address] [facility] Monocytes (Bld) [#/Vol] 0.3 10*3/uL Normal 0.0-0.8 [facility] Comment on above: Performed By: #### C BC, CMP ####[address] [address] [facility] Monocytes/100 WBC (Bld) 4.1 % Normal . [facility] Comment on above: Performed By: #### C BC, CMP ####[address] [address] [facility] Neutrophils (Bld) [#/Vol] 6.2 10*3/uL Normal 1.8-7.7 [facility] Comment on above: Performed By: #### C BC, CMP ####[address] [address] [facility] Neutrophils/100 WBC (Bld) 78.8 % Normal . [facility] Comment on above: Performed By: #### C BC, CMP ####[address] [address] [facility] NRBC% 0.1 /100{WBC} Normal 0-0.5 [facility] Comment on above: Performed By: #### C BC, CMP ####[address] [address] [facility] Platelet mean volume (Bld) [Entitic vol] 8.4 fL Normal 6.6-10.1 [facility] Comment on above: Performed By: #### C BC, CMP ####[address] [address] [facility] Platelets (Bld) [#/Vol] 156 10*3/uL Normal 150-450 [facility] Comment on above: Performed By: #### C BC, CMP ####[address] [address] [facility] RBC (Bld) [#/Vol] 2.66 10*6/uL Low 3.90-5.60 [facility] Comment on above: Performed By: #### C BC, CMP ####[address] [address] [facility] WBC (Bld) [#/Vol] 7.9 10*3/uL Normal 4.1-10.5 [facility] Comment on above: Performed By: #### C AYDEE, CMP ####[address] [address] [facility] Comprehensive Metabolic Pane mana 07-14-2023 Albumin [Mass/Vol] 3.9 g/dL Normal 3.5-5.7 [facility] Comment on above: Performed By: #### C AYDEE, CMP ####[address] [address] [facility] Albumin/Globulin [Mass ratio] 1.8 {ratio} Normal [facility] Comment on above: Performed By: #### C BC, CMP ####[address] [address] [facility] ALP [Catalytic activity/Vol] 96 U/L Normal 34-104 [facility] Comment on above: Performed By: #### C BC, CMP ####[address] [address] [facility] ALT [Catalytic activity/Vol] 14 U/L Normal 7-52 [facility] Comment on above: Performed By: #### C BC, CMP ####[address] [address] [facility] Anion gap [Moles/Vol] 8.8 mmol/L Normal 6.0-15.0 [facility] Comment on above: Performed By: #### C BC, CMP ####[facility] [address] [place] [address] [facility] AST [Catalytic activity/Vol] 17 U/L Normal 13-39 [facility] Comment on above: Performed By: #### C BC, CMP ####[facility] Rom[address] [place] [address] [facility] Bilirubin [Mass/Vol] 0.4 mg/dL Normal 0.3-1.0 [facility] Comment on above: Performed By: #### C BC, CMP ####[facility] [place] [address] [facility] Calcium [Mass/Vol] 8.8 mg/dL Normal 8.6-10.3 [facility] Comment on above: Performed By: #### C BC, CMP ####[address] [place] [address] [facility] Chloride [Moles/Vol] 109 mmol/L High 98-107 [facility] Comment on above: Performed By: #### C BC, CMP ####[address] [place] [address] [facility] CO2 [Moles/Vol] 25.2 mmol/L Normal 21.0-31.0 [facility] Comment on above: Performed By: #### C BC, CMP ####[facility] [place] [address] [facility] Creatinine [Mass/Vol] 1.74 mg/dL High 0.70-1.30 [facility] Comment on above: Performed By: #### C BC, CMP ####[facility] Bbh[address] [place] [address] [place] Creatinine Clr Calc Pharmacy 40.89 Normal [facility] Comment on above: Result Comment: PERF ORMED BY:[address] [address] [place] [phone] MEDICAL ANYA HARDING M.D. Performed By: #### C BC, CMP ####[address] [place] [id number] [facility] GFR/1.73 sq M.predicted MDRD (S/P/Bld) [Vol rate/Area] 39.632 mL/min/{1.73_m2} [facility] Comment on above: Performed By: #### C BC, CMP ####[place] [id number] [facility] Globulin (S) [Mass/Vol] 2.2 g/dL Normal [facility] Comment on above: Performed By: #### C BC, CMP ####[place] [id number] [facility] Glucose [Mass/Vol] 70 mg/dL Normal 70-100 [facility] Comment on above: Result Comment: [facility] Glucose Reference Range is dependent on time and content of last meal. Glucose of more than 200 mg/dL in a nonstressed, ambulatory subject supports the diagnosis of Diabetes Mellitus. ADA recommended reference range Performed By: #### C BC, CMP ####[place] [id number] [facility] Potassium [Moles/Vol] 4.0 mmol/L Normal 3.5-5.1 [facility] Comment on above: Performed By: #### C BC, CMP ####[place] [id number] [facility] Protein [Mass/Vol] 6.1 g/dL Low 6.4-8.9 [facility] Comment on above: Performed By: #### C BC, CMP ####[place] [id number] [facility] Sodium [Moles/Vol] 139 mmol/L Normal 136-145 [facility] Comment on above: Performed By: #### C BC, CMP ####[place] [id number] [facility] Urea nitrogen [Mass/Vol] 24 mg/dL Normal 7-25 [facility] Comment on above: Performed By: #### C BC, CMP ####[place] [id number] [place] Creatinine [Mass/volume] in Serum or PlasmaOrdered By: Brook Huddleston on 07-14-2023 Creatinine [Mass/Vol] 1.74 mg/dL 0.70-1.30 [facility] Eosinophils Auto (Bld) [#/Vo l]Ordered By: Brook Huddleston on 07-14-2023 Eosinophils (Bld) [#/Vol] 0.3 10*3/uL 0.0-0.45 [facility] Eosinophils/100 WBC Auto (Bl d)Ordered By: Brook Huddleston on 07-14-2023 Eosinophils/100 WBC (Bld) 3.4 % . [facility] Erythrocyte distribution wid th Auto (RBC) [Ratio]Ordered By: Brook Huddleston on 07-14-2023 Erythrocyte distribution width (RBC) [Ratio] 16.5 % 12.0-14.8 [facility] Globulin Calc (S) [Mass/Vol] Ordered By: Brook Huddleston on 07-14-2023 Globulin (S) [Mass/Vol] 2.2 g/dL [facility] Glucose [Mass/volume] in Ser um or PlasmaOrdered By: Brook Huddleston on 07-14-2023 Glucose [Mass/Vol] 70 mg/dL 70-100 [facility] Comment on above: ADA recommended refe rence rangeRandom Glucose Reference Range is dependent on time and content of last meal. Glucose of more than 200 mg/dL in a nonstressed, ambulatory subject supports the diagnosis of Diabetes Mellitus. Hematocrit Auto (Bld) [Volum e fraction]Ordered By: Brook Huddleston on 07-14-2023 Hematocrit (Bld) [Volume fraction] 28.7 % 38.8-50.0 [facility] Hemoglobin [Mass/volume] in BloodOrdered By: Brook Huddleston on 07-14-2023 Hemoglobin (Bld) [Mass/Vol] 9.6 g/dL 13.0-17.0 [facility] Leukocytes [#/volume] correc lizbet for nucleated erythrocytes in Blood by Automated counOrdered By: Brook Huddleston on 07-14-2023 WBC corrected for nucl RBC Auto (Bld) [#/Vol] 7.9 10*3/uL 4.1-10.5 [facility] Lymphocytes Auto (Bld) [#/Vo l]Ordered By: Brook Huddleston on 07-14-2023 Lymphocytes (Bld) [#/Vol] 1.1 10*3/uL 1.00-4.8 [facility] Lymphocytes/100 WBC Auto (Bl d)Ordered By: Brook Huddleston on 07-14-2023 Lymphocytes/100 WBC (Bld) 13.4 % . [facility] MCH Auto (RBC) [Entitic mass ]Ordered By: Brook Huddleston on 07-14-2023 MCH (RBC) [Entitic mass] 36.1 pg 27.5-35.2 [facility] MCHC Auto (RBC) [Mass/Vol]Or dered By: Brook Huddleston on 07-14-2023 MCHC (RBC) [Mass/Vol] 33.5 g/dL 32.5-35.6 [facility] MCV Auto (RBC) [Entitic vol] Ordered By: Brook Huddleston on 07-14-2023 MCV (RBC) [Entitic vol] 107.8 fL 83.5-101 [facility] Monocytes Auto (Bld) [#/Vol] Ordered By: Brook Huddleston on 07-14-2023 Monocytes (Bld) [#/Vol] 0.3 10*3/uL 0.0-0.8 [facility] Monocytes/100 WBC Auto (Bld) Ordered By: Brook Huddleston on 07-14-2023 Monocytes/100 WBC (Bld) 4.1 % . [facility] Neutrophils Auto (Bld) [#/Vo l]Ordered By: Brook Huddleston on 07-14-2023 Neutrophils (Bld) [#/Vol] 6.2 10*3/uL 1.8-7.7 [facility] Neutrophils/100 WBC Auto (Bl d)Ordered By: Brook Huddleston on 07-14-2023 Neutrophils/100 WBC (Bld) 78.8 % . [facility] No Panel InformationOrdered By: Brook Huddleston on 07-14-2023 Estimated GFR (CKD-EPI) 39.632 mL/Min [facility] Creatinine Clearance (Chem 40.89 [facility] Nucleated erythrocytes [Pres ence] in Blood by Automated countOrdered By: Brook Huddleston on 07-14-2023 Nucleated RBC Auto Ql (Bld) 0.1 /100{WBC} 0-0.5 [facility] Platelet mean volume Auto (B ld) [Entitic vol]Ordered By: Brook Huddleston on 07-14-2023 Platelet mean volume (Bld) [Entitic vol] 8.4 fL 6.6-10.1 [facility] Platelets Auto (Bld) [#/Vol] Ordered By: Brook Huddleston on 07-14-2023 Platelets (Bld) [#/Vol] 156 10*3/uL 150-450 [facility] Potassium [Moles/volume] in Serum or PlasmaOrdered By: Brook Huddleston on 07-14-2023 Potassium [Moles/Vol] 4.0 mmol/L 3.5-5.1 [facility] Protein [Mass/volume] in Ser um or PlasmaOrdered By: Brook Huddleston on 07-14-2023 Protein [Mass/Vol] 6.1 g/dL 6.4-8.9 [facility] RBC Auto (Bld) [#/Vol]Ordere d By: Brook Huddleston on 07-14-2023 RBC (Bld) [#/Vol] 2.66 10*6/uL 3.90-5.60 [facility] Serum or plasma albumin/glob ulin mass ratioOrdered By: Brook Huddleston on 07-14-2023 Albumin/Globulin [Mass ratio] 1.8 {ratio} [facility] Serum or plasma anion gap de terminationOrdered By: Brook Huddleston on 07-14-2023 Anion gap [Moles/Vol] 8.8 mmol/L 6.0-15.0 [facility] Sodium [Moles/volume] in Ser um or PlasmaOrdered By: Brook Huddleston on 07-14-2023 Sodium [Moles/Vol] 139 mmol/L 136-145 [facility] Urea nitrogen [Mass/volume] in Serum or PlasmaOrdered By: Brook Huddleston on 07-14-2023 Urea nitrogen [Mass/Vol] 24 mg/dL 7-25 [facility] WBC Auto (Bld) [#/Vol]Ordere d By: Brook Huddleston on 07-14-2023 WBC (Bld) [#/Vol] 7.9 10*3/uL 4.1-10.5 [facility] XR KUBon 07-14-2023 XR KUB Normal [facility] C Urineon 07-04-2023 Bacteria identified Cx Nom (U) Microbiology PROCEDURE: Urine Culture [R1] SOURCE: U Cath BODY SITE: COLLECTED DATE/TIME: 07/02/2023 11:40 EST RECEIVED DATE/TIME: 07/02/2023 14:16 EST START DATE/TIME: 07/02/2023 14:16 EST FREE TEXT SOURCE: halle Cortez MD, Vesna Cortez MD, Vesna Taylor FINAL REPORTS Final Report [] Verified Date/Time: 07/04/2023 09:25 EST 10,000 cfu/ml Staphylococcus epidermidis SUSCEPTIBILITY RESULTS __ LEGEND: S=Susceptible, N/R=Not Reported, Blank=Data not available, or drug not advisable or tested, I=Intermediate, ESBL=Extended spectrum beta-lactamase, R=Resistant, TFG=Thymidine-dependen t strain, RADHA=Beta-lactamase positive, DEPEA=mcg/m;(mg/L), S*=Predicted susceptible interp, R*=Predicted resistant interp Staepi Antibiotic DEEPA Dilutn DEEPA Interp Amoxicillin/ <=4/2 R Clavulanate Ampicillin 8 R Ampicillin/ <=8/4 R Sulbactam Cefazolin <=8 R Ciprofloxacin >2 R Daptomycin <=1 S Gentamicin >8 R Levofloxacin >4 R Linezolid <=2 S Nitrofurantoin <=32 S Oxacillin >2 R Penicillin >8 R Rifampin <=1 S Tetracycline >8 R Trimethoprim/ >2/38 R Sulfa Vancomycin 1 S Performing Locations R1: This test was performed at: [facility], [address] [place] [address], [phone] [phone] , [facility] Comment on above: Performed By: #### [id number] #### [facility] [address] [place] [id number] Ambulatory Visit Summaryon 1 09-01-2022 Ambulatory Visit Summary PATSY MILLS :1945 Visit Date:07/02/2023 Ambulatory Visit Instructions Your Diagnosis UTI (urinary tract infection) Your Care Team Attending Physician - Diego RICKS, Vesna Taylor Primary Care Physician - HELEN HEATH MD This Is Your Medications List acyclovir (Zovirax 400 mg Tab) aspirin (aspirin 81 mg Chew Tab) atorvastatin (atorvastatin 20 mg Tab) bifidobacterium-lactob acillus (Probiotic + Colostrum) cholecalciferol (Vitamin D3 2000 intl units) famotidine (famotidine 20 mg Tab) insulin glargine (Lantus insulin) insulin lispro (Humalog) lenalidomide (Revlimid 5 mg oral capsule) levofloxacin (Levaquin 500 mg Tab) losartan (losartan 25 mg Tab) metformin (metformin 500 mg Tab) oxybutynin (oxybutynin 10 mg ER Tab) potassium chloride (potassium chloride 20 mEq ER Tab) Procedures Performed Cystostomy and insertion of suprapubic tube (03/05/2023), Cystoscopic insertion of ureteric stent (12/10/2022), TURP - Transurethral resection of prostate (08/27/2022), Transurethral insertion of prostatic urethral lift implant (05/05/2022), Cystoscopic removal of ureteric stent (08/20/2012), Cystoscopic ureteroneocystostomy with insertion 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 What to do next Scheduled Follow-Up Appointments Thursday 9:15 AM EST With: Diego RICKS, Vesna Taylor Where: [facility] [place] Normal [facility] Complete Blood Count Auto Di ffon 06-30-2023 Basophils (Bld) [#/Vol] 0.0 10*3/uL Normal 0.0-0.2 [facility] Comment on above: Result Comment: PERF ORMED BY:[address] [place], [place] [phone] MEDICAL DIRECTORMEAGAN HARDING M.D. Performed By: #### C AYDEE, CMP ####[place] [id number] [facility] Basophils/100 WBC (Bld) 0.6 % Normal . [facility] Comment on above: Performed By: #### C AYDEE, CMP ####[place] [id number] [facility] Eosinophils (Bld) [#/Vol] 0.3 10*3/uL Normal 0.0-0.45 [facility] Comment on above: Performed By: #### C AYDEE, CMP ####[place] [id number] [facility] Eosinophils/100 WBC (Bld) 4.6 % Normal . [facility] Comment on above: Performed By: #### C AYDEE, CMP ####[place] [id number] [facility] Erythrocyte distribution width (RBC) [Ratio] 16.6 % High 12.0-14.8 [facility] Comment on above: Performed By: #### C YADEE, CMP ####[place] [id number] [facility] Hematocrit (Bld) [Volume fraction] 28.2 % Low 38.8-50.0 [facility] Comment on above: Performed By: #### C AYDEE, CMP ####[place] [id number] [place] Hemoglobin (Bld) [Mass/Vol] 9.4 g/dL Low 13.0-17.0 [facility] Comment on above: Performed By: #### C AYDEE, CMP ####[address] Lymphocytes (Bld) [#/Vol] 1.1 10*3/uL Normal 1.00-4.8 [facility] Comment on above: Performed By: #### C AYDEE, CMP ####[address] Lymphocytes/100 WBC (Bld) 16.4 % Normal . [facility] Comment on above: Performed By: #### C AYDEE, CMP ####[address] MCH (RBC) [Entitic mass] 36.3 pg High 27.5-35.2 [facility] Comment on above: Performed By: #### C AYDEE, CMP ####[address] MCV (RBC) [Entitic vol] 108.7 fL High 83.5-101 [facility] Comment on above: Performed By: #### C AYDEE, CMP ####[address] Mean Corpuscular HGB Conc 33.4 g/dL Normal 32.5-35.6 [facility] Comment on above: Performed By: #### C AYDEE, CMP ####[address] Monocytes (Bld) [#/Vol] 0.5 10*3/uL Normal 0.0-0.8 [facility] Comment on above: Performed By: #### C AYDEE, CMP ####[address] Monocytes/100 WBC (Bld) 8.1 % Normal . [facility] Comment on above: Performed By: #### C AYDEE, CMP ####[address] [place] [address] [facility] Neutrophils (Bld) [#/Vol] 4.5 10*3/uL Normal 1.8-7.7 [facility] Comment on above: Performed By: #### C AYDEE, CMP ####[address] [address] [facility] Neutrophils/100 WBC (Bld) 70.3 % Normal . [facility] Comment on above: Performed By: #### C AYDEE, CMP ####[place] [id number] [facility] NRBC% 0.1 /100{WBC} Normal 0-0.5 [facility] Comment on above: Performed By: #### C AYDEE, CMP ####[place] [id number] [facility] Platelet mean volume (Bld) [Entitic vol] 8.6 fL Normal 6.6-10.1 [facility] Comment on above: Performed By: #### C AYDEE, CMP ####[place] [id number] [facility] Platelets (Bld) [#/Vol] 156 10*3/uL Normal 150-450 [facility] Comment on above: Performed By: #### C AYDEE, CMP ####[place] [id number] [facility] RBC (Bld) [#/Vol] 2.59 10*6/uL Low 3.90-5.60 [facility] Comment on above: Performed By: #### C AYDEE, CMP ####[place] [id number] [facility] WBC (Bld) [#/Vol] 6.4 10*3/uL Normal 4.1-10.5 [facility] Comment on above: Performed By: #### C AYDEE, CMP ####[place] [id number] [facility] Comprehensive Metabolic Pane mana 06-30-2023 Albumin [Mass/Vol] 4.0 g/dL Normal 3.5-5.7 [facility] Comment on above: Performed By: #### C BC, CMP ####[facility] [place] [address] [facility] Albumin/Globulin [Mass ratio] 1.7 {ratio} Normal [facility] Comment on above: Performed By: #### C BC, CMP ####[facility] [place] [address] [facility] ALP [Catalytic activity/Vol] 82 U/L Normal 34-104 [facility] Comment on above: Performed By: #### C BC, CMP ####[facility] [place] [address] [facility] ALT [Catalytic activity/Vol] 15 U/L Normal 7-52 [facility] Comment on above: Performed By: #### C BC, CMP ####[address] [place] [address] [facility] Anion gap [Moles/Vol] 9.9 mmol/L Normal 6.0-15.0 [facility] Comment on above: Performed By: #### C BC, CMP ####[facility] [place] [address] [facility] AST [Catalytic activity/Vol] 17 U/L Normal 13-39 [facility] Comment on above: Performed By: #### C BC, CMP ####[facility] [place] [address] [facility] Bilirubin [Mass/Vol] 0.4 mg/dL Normal 0.3-1.0 [facility] Comment on above: Performed By: #### C BC, CMP ####[facility] [place] [address] [facility] Calcium [Mass/Vol] 8.9 mg/dL Normal 8.6-10.3 [facility] Comment on above: Performed By: #### C BC, CMP ####[facility] [place] [address] [facility] Chloride [Moles/Vol] 107 mmol/L Normal 98-107 [facility] Comment on above: Performed By: #### C BC, CMP ####[facility] [place] [address] [facility] CO2 [Moles/Vol] 24.7 mmol/L Normal 21.0-31.0 [facility] Comment on above: Performed By: #### C BC, CMP ####[place] [id number] [facility] Creatinine [Mass/Vol] 2.01 mg/dL High 0.70-1.30 [facility] Comment on above: Performed By: #### C BC, CMP ####[place] [id number] [facility] Creatinine Clr Calc Pharmacy 35.40 [facility] Comment on above: Result Comment: PERF ORMED BY:[address] [place] [phone] MEDICAL DIRECTORMEAGAN HARDING M.D. Performed By: #### C AYDEE, CMP ####[place] [id number] [facility] GFR/1.73 sq M.predicted MDRD (S/P/Bld) [Vol rate/Area] 33.332 mL/min/{1.73_m2} [facility] Comment on above: Performed By: #### C AYDEE, CMP ####[place] [id number] [facility] Globulin (S) [Mass/Vol] 2.4 g/dL [facility] Comment on above: Performed By: #### C BC, CMP ####[place] [id number] [facility] Glucose [Mass/Vol] 150 mg/dL High 70-100 [facility] Comment on above: Result Comment: [employer] om Glucose Reference Range is dependent on time and content of last meal. Glucose of more than 200 mg/dL in a nonstressed, ambulatory subject supports the diagnosis of Diabetes Mellitus. ADA recommended reference range Performed By: #### C BC, CMP ####[place] [id number] [facility] Potassium [Moles/Vol] 4.6 mmol/L Normal 3.5-5.1 [facility] Comment on above: Performed By: #### C BC, CMP ####[facility] [id number] [place] [address] [facility] Protein [Mass/Vol] 6.4 g/dL Normal 6.4-8.9 [facility] Comment on above: Performed By: #### C BC, CMP ####[facility] [id number] [place] [address] [facility] Sodium [Moles/Vol] 137 mmol/L Normal 136-145 [facility] Comment on above: Performed By: #### C BC, CMP ####[facility] [id number] [place] [address] [facility] Urea nitrogen [Mass/Vol] 26 mg/dL High 7-25 [facility] Comment on above: Performed By: #### C BC, CMP ####[facility] [id number] [place] [address] [facility] Alanine aminotransferase [En zymatic activity/volume] in Serum or PlasmaOrdered By: Price Crain on 06-23-2023 ALT [Catalytic activity/Vol] 16 U/L 7-52 [facility] Albumin [Mass/volume] in Ser um or Plasma by Bromocresol green (BCG) dye binding methoOrdered By: Price Crain on 06-23-2023 Albumin BCG dye [Mass/Vol] 3.7 g/dL 3.5-5.7 [facility] Alkaline phosphatase [Enzyma tic activity/volume] in Serum or PlasmaOrdered By: Price Crain on 06-23-2023 ALP [Catalytic activity/Vol] 102 U/L 34-104 [facility] Aspartate aminotransferase [ Enzymatic activity/volume] in Serum or PlasmaOrdered By: Price Crain on 06-23-2023 AST [Catalytic activity/Vol] 16 U/L 13-39 [facility] Bilirubin.total [Mass/volume ] in Serum or PlasmaOrdered By: Price Crain on 06-23-2023 Bilirubin [Mass/Vol] 0.5 mg/dL 0.3-1.0 [facility] Calcium [Mass/volume] in Ser um or PlasmaOrdered By: Price Crain on 06-23-2023 Calcium [Mass/Vol] 8.8 mg/dL 8.6-10.3 [facility] Carbon dioxide, total [Moles /volume] in Serum or PlasmaOrdered By: Price Crain on 06-23-2023 CO2 [Moles/Vol] 24.7 mmol/L 21.0-31.0 [facility] Chloride [Moles/volume] in S valeria or PlasmaOrdered By: Price Crain on 06-23-2023 Chloride [Moles/Vol] 109 mmol/L 98-107 [facility] Comprehensive Metabolic Pane mana 06-23-2023 Albumin [Mass/Vol] 3.7 g/dL Normal 3.5-5.7 [facility] Comment on above: Order Comment: Reaso n for Exam Chronic kidney disease, stage 3a;Hypertensive chronic kidney Performed By: #### P HOS, MG, CMP, [id number], URIC ####[address] Albumin/Globulin [Mass ratio] 1.6 {ratio} Normal [facility] Comment on above: Order Comment: Reaso n for Exam Chronic kidney disease, stage 3a;Hypertensive chronic kidney Performed By: #### P HOS, MG, CMP, [id number], URIC ####[place] [place] [address] [facility] ALP [Catalytic activity/Vol] 102 U/L Normal 34-104 [facility] Comment on above: Order Comment: Reaso n for Exam Chronic kidney disease, stage 3a;Hypertensive chronic kidney Performed By: #### P HOS, MG, CMP, [id number], URIC ####[address] [address] [facility] ALT [Catalytic activity/Vol] 16 U/L Normal 7-52 [facility] Comment on above: Order Comment: Reaso n for Exam Chronic kidney disease, stage 3a;Hypertensive chronic kidney Performed By: #### P HOS, MG, CMP, [id number], URIC ####[place] [id number] [facility] Anion gap [Moles/Vol] 9.7 mmol/L Normal 6.0-15.0 [facility] Comment on above: Order Comment: Reaso n for Exam Chronic kidney disease, stage 3a;Hypertensive chronic kidney Performed By: #### P HOS, MG, CMP, [id number], URIC ####[address] [address] [facility] AST [Catalytic activity/Vol] 16 U/L Normal 13-39 [facility] Comment on above: Order Comment: Reaso n for Exam Chronic kidney disease, stage 3a;Hypertensive chronic kidney Performed By: #### P HOS, MG, CMP, [id number], URIC ####[address] [address] [facility] Bilirubin [Mass/Vol] 0.5 mg/dL Normal 0.3-1.0 [facility] Comment on above: Order Comment: Reaso n for Exam Chronic kidney disease, stage 3a;Hypertensive chronic kidney Performed By: #### P HOS, MG, CMP, [id number], URIC ####[address] [address] [facility] Calcium [Mass/Vol] 8.8 mg/dL Normal 8.6-10.3 [facility] Comment on above: Order Comment: Reaso n for Exam Chronic kidney disease, stage 3a;Hypertensive chronic kidney Performed By: #### P HOS, MG, CMP, [id number], URIC ####[address] [address] [facility] Chloride [Moles/Vol] 109 mmol/L High 98-107 [facility] Comment on above: Order Comment: Reaso n for Exam Chronic kidney disease, stage 3a;Hypertensive chronic kidney Performed By: #### P HOS, MG, CMP, [id number], URIC ####[address] [address] [facility] CO2 [Moles/Vol] 24.7 mmol/L Normal 21.0-31.0 [facility] Comment on above: Order Comment: Reaso n for Exam Chronic kidney disease, stage 3a;Hypertensive chronic kidney Performed By: #### P HOS, MG, CMP, [id number], URIC ####[place] [address] [place] [id number] [facility] Creatinine [Mass/Vol] 1.69 mg/dL High 0.70-1.30 [facility] Comment on above: Order Comment: Reaso n for Exam Chronic kidney disease, stage 3a;Hypertensive chronic kidney Performed By: #### P HOS, MG, CMP, [id number], URIC ####[place] [place] [id number] [facility] GFR/1.73 sq M.predicted MDRD (S/P/Bld) [Vol rate/Area] 41.043 mL/min/{1.73_m2} [facility] Comment on above: Order Comment: Reaso n for Exam Chronic kidney disease, stage 3a;Hypertensive chronic kidney Performed By: #### P HOS, MG, CMP, [id number], URIC ####[address] Globulin (S) [Mass/Vol] 2.3 g/dL [facility] Comment on above: Order Comment: Reaso n for Exam Chronic kidney disease, stage 3a;Hypertensive chronic kidney Performed By: #### P HOS, MG, CMP, [id number], URIC ####[address] Glucose [Mass/Vol] 117 mg/dL High 70-100 [facility] Comment on above: Order Comment: Reaso n for Exam Chronic kidney disease, stage 3a;Hypertensive chronic kidney Result Comment: [facility] Glucose Reference Range is dependent on time and content of last meal. Glucose of more than 200 mg/dL in a nonstressed, ambulatory subject supports the diagnosis of Diabetes Mellitus. ADA recommended reference range Performed By: #### P HOS, MG, CMP, [id number], URIC ####[place] [id number] [facility] Potassium [Moles/Vol] 4.4 mmol/L Normal 3.5-5.1 [facility] Comment on above: Order Comment: Reaso n for Exam Chronic kidney disease, stage 3a;Hypertensive chronic kidney Performed By: #### P HOS, MG, CMP, [id number], URIC ####[address] [address] [facility] Protein [Mass/Vol] 6.0 g/dL Low 6.4-8.9 [facility] Comment on above: Order Comment: Reaso n for Exam Chronic kidney disease, stage 3a;Hypertensive chronic kidney Performed By: #### P HOS, MG, CMP, [id number], URIC ####[place] [id number] [facility] Sodium [Moles/Vol] 139 mmol/L Normal 136-145 [facility] Comment on above: Order Comment: Reaso n for Exam Chronic kidney disease, stage 3a;Hypertensive chronic kidney Performed By: #### P HOS, MG, CMP, [id number], URIC ####[address] [address] [facility] Urea nitrogen [Mass/Vol] 17 mg/dL Normal 7-25 [facility] Comment on above: Order Comment: Reaso n for Exam Chronic kidney disease, stage 3a;Hypertensive chronic kidney Performed By: #### P HOS, MG, CMP, [id number], URIC ####[place] [id number] [facility] Creatinine [Mass/volume] in Serum or PlasmaOrdered By: Price Crain on 06-23-2023 Creatinine [Mass/Vol] 1.69 mg/dL 0.70-1.30 [facility] Creatinine [Mass/volume] in UrineOrdered By: Price Crain on 06-23-2023 Creatinine (U) [Mass/Vol] 133.0 mg/dL 14.0-26.0 [facility] Erythrocyte distribution wid th Auto (RBC) [Ratio]Ordered By: Price Crain on 06-23-2023 Erythrocyte distribution width (RBC) [Ratio] 16.4 % 12.0-14.8 [facility] Globulin Calc (S) [Mass/Vol] Ordered By: Price Crain on 06-23-2023 Globulin (S) [Mass/Vol] 2.3 g/dL [facility] Glucose [Mass/volume] in Ser um or PlasmaOrdered By: Price Crain on 06-23-2023 Glucose [Mass/Vol] 117 mg/dL 70-100 [facility] Comment on above: ADA recommended refe rence rangeRandom Glucose Reference Range is dependent on time and content of last meal. Glucose of more than 200 mg/dL in a nonstressed, ambulatory subject supports the diagnosis of Diabetes Mellitus. Hematocrit Auto (Bld) [Volum e fraction]Ordered By: Price Crain on 06-23-2023 Hematocrit (Bld) [Volume fraction] 28.7 % 38.8-50.0 [facility] Hemoglobin [Mass/volume] in BloodOrdered By: Price Crain on 06-23-2023 Hemoglobin (Bld) [Mass/Vol] 9.8 g/dL 13.0-17.0 [facility] Hemogram CBC Without Diffon 06-23-2023 Erythrocyte distribution width (RBC) [Ratio] 16.4 % High 12.0-14.8 [facility] Comment on above: Order Comment: Reaso n for Exam Chronic kidney disease, stage 3a;Hypertensive chronic kidney Performed By: #### C BCNO ####[address] Hematocrit (Bld) [Volume fraction] 28.7 % Low 38.8-50.0 [facility] Comment on above: Order Comment: Reaso n for Exam Chronic kidney disease, stage 3a;Hypertensive chronic kidney Performed By: #### C BCNO ####[address] Hemoglobin (Bld) [Mass/Vol] 9.8 g/dL Low 13.0-17.0 [facility] Comment on above: Order Comment: Reaso n for Exam Chronic kidney disease, stage 3a;Hypertensive chronic kidney Performed By: #### C BCNO ####[address] MCH (RBC) [Entitic mass] 36.8 pg High 27.5-35.2 [facility] Comment on above: Order Comment: Reaso n for Exam Chronic kidney disease, stage 3a;Hypertensive chronic kidney Performed By: #### C BCNO ####[place] [address] [place] [address] [facility] MCV (RBC) [Entitic vol] 107.9 fL High 83.5-101 [facility] Comment on above: Order Comment: Reaso n for Exam Chronic kidney disease, stage 3a;Hypertensive chronic kidney Performed By: #### C BCNO ####[address] [address] [facility] Mean Corpuscular HGB Conc 34.1 g/dL Normal 32.5-35.6 [facility] Comment on above: Order Comment: Reaso n for Exam Chronic kidney disease, stage 3a;Hypertensive chronic kidney Performed By: #### C BCNO ####[address] [address] [facility] Platelet mean volume (Bld) [Entitic vol] 8.5 fL Normal 6.6-10.1 [facility] Comment on above: Order Comment: Reaso n for Exam Chronic kidney disease, stage 3a;Hypertensive chronic kidney Result Comment: PERF ORMED BY:[address] [place], [place] [phone] MEDICAL DIRECTORMEAGAN HARDING M.D. Performed By: #### C BCNO ####[address] [address] [facility] Platelets (Bld) [#/Vol] 166 10*3/uL Normal 150-450 [facility] Comment on above: Order Comment: Reaso n for Exam Chronic kidney disease, stage 3a;Hypertensive chronic kidney Performed By: #### C BCNO ####[address] [address] [place] RBC (Bld) [#/Vol] 2.66 10*6/uL Low 3.90-5.60 [facility] Comment on above: Order Comment: Reaso n for Exam Chronic kidney disease, stage 3a;Hypertensive chronic kidney Performed By: #### C BCNO ####[address] [address] [facility] WBC (Bld) [#/Vol] 7.3 10*3/uL Normal 4.1-10.5 [facility] Comment on above: Order Comment: Reaso n for Exam Chronic kidney disease, stage 3a;Hypertensive chronic kidney Performed By: #### C BCNO ####[facility] [id number] [place] [address] [facility] Leukocytes [#/volume] correc lizbet for nucleated erythrocytes in Blood by Automated counOrdered By: Price Crain on 06-23-2023 WBC corrected for nucl RBC Auto (Bld) [#/Vol] 7.3 10*3/uL 4.1-10.5 [facility] MCH Auto (RBC) [Entitic mass ]Ordered By: Price Crain on 06-23-2023 MCH (RBC) [Entitic mass] 36.8 pg 27.5-35.2 [facility] MCHC Auto (RBC) [Mass/Vol]Or dered By: Price Crain on 06-23-2023 MCHC (RBC) [Mass/Vol] 34.1 g/dL 32.5-35.6 [facility] MCV Auto (RBC) [Entitic vol] Ordered By: Price Crain on 06-23-2023 MCV (RBC) [Entitic vol] 107.9 fL 83.5-101 [facility] Magnesiumon 06-23-2023 Magnesium [Mass/Vol] 1.8 mg/dL Low 1.9-2.7 [facility] Comment on above: Order Comment: Reaso n for Exam Chronic kidney disease, stage 3a;Hypertensive chronic kidney Performed By: #### P HOS, MG, CMP, [id number], URIC ####[facility] [id number] [place] [address] [facility] Magnesium [Mass/volume] in S valeria or PlasmaOrdered By: Price Crain on 06-23-2023 Magnesium [Mass/Vol] 1.8 mg/dL 1.9-2.7 [facility] No Panel InformationOrdered By: Price Crain on 06-23-2023 Estimated GFR (CKD-EPI) 41.043 mL/Min [facility] Creatinine Clearance (Chem N/A [facility] Parathyrin.intact [Mass/volu me] in Serum or PlasmaOrdered By: Price Crain on 06-23-2023 Parathyrin.intact [Mass/Vol] 51.9 pg/mL [facility] Parathyroid Hormone Intacton 06-23-2023 Parathyroid Hormone Intact 51.9 pg/mL Normal [facility] Comment on above: Order Comment: Reaso n for Exam Chronic kidney disease, stage 3a;Hypertensive chronic kidney Result Comment: PERF ORMED BY:[address] [place], [place] [phone] MEDICAL DIRECTORMEAGAN HARDING M.D. Performed By: #### P TH ####[place] [address] [place] [address] [facility] Phosphate [Mass/volume] in S valeria or PlasmaOrdered By: Price Crain on 06-23-2023 Phosphate [Mass/Vol] 2.9 mg/dL 2.5-4.5 [facility] Phosphoruson 06-23-2023 Phosphate [Mass/Vol] 2.9 mg/dL Normal 2.5-4.5 [facility] Comment on above: Order Comment: Reaso n for Exam Chronic kidney disease, stage 3a;Hypertensive chronic kidney Performed By: #### P HOS, MG, CMP, [id number], URIC ####[facility] [id number] [place] [address] [facility] Platelet mean volume Auto (B ld) [Entitic vol]Ordered By: Price Crain on 06-23-2023 Platelet mean volume (Bld) [Entitic vol] 8.5 fL 6.6-10.1 [facility] Platelets Auto (Bld) [#/Vol] Ordered By: Price Crain on 06-23-2023 Platelets (Bld) [#/Vol] 166 10*3/uL 150-450 [facility] Potassium [Moles/volume] in Serum or PlasmaOrdered By: Price Crain on 06-23-2023 Potassium [Moles/Vol] 4.4 mmol/L 3.5-5.1 [facility] Protein Creat Ratio Ur Rando mon 06-23-2023 Creatinine, Urine (Random) 133.0 mg/dL High 14.0-26.0 [facility] Comment on above: Order Comment: Reaso n for Exam Chronic kidney disease, stage 3a;Hypertensive chronic kidney Performed By: #### P ROCRERAT ####[facility] [id number] [place] [address] [facility] Protein (U) [Mass/Vol] 377 mg/dL High 0-9 [facility] Comment on above: Order Comment: Reaso n for Exam Chronic kidney disease, stage 3a;Hypertensive chronic kidney Performed By: #### P ROCRERAT ####[facility] [id number] [place] [address] [facility] Urine Protein/Creatinine Ratio 2835 mg/g{Cre} High 0-200 [facility] Comment on above: Order Comment: Reaso n for Exam Chronic kidney disease, stage 3a;Hypertensive chronic kidney Result Comment: PERF ORMED BY:[address] [place], [place] [phone] MEDICAL DIRECTORMEAGAN HARDING M.D. Performed By: #### P ROCRERAT ####[place] [address] [place] [address] [facility] Protein [Mass/volume] in Ser um or PlasmaOrdered By: Price Crain on 06-23-2023 Protein [Mass/Vol] 6.0 g/dL 6.4-8.9 [facility] Protein [Mass/volume] in Uri neOrdered By: Price Crain on 06-23-2023 Protein (U) [Mass/Vol] 377 mg/dL 0-9 [facility] RBC Auto (Bld) [#/Vol]Ordere d By: Price Crain on 06-23-2023 RBC (Bld) [#/Vol] 2.66 10*6/uL 3.90-5.60 [facility] Serum or plasma albumin/glob ulin mass ratioOrdered By: Price Crain on 06-23-2023 Albumin/Globulin [Mass ratio] 1.6 {ratio} [facility] Serum or plasma anion gap de terminationOrdered By: Price Crain on 06-23-2023 Anion gap [Moles/Vol] 9.7 mmol/L 6.0-15.0 [facility] Sodium [Moles/volume] in Ser um or PlasmaOrdered By: Price Crain on 06-23-2023 Sodium [Moles/Vol] 139 mmol/L 136-145 [facility] Urate [Mass/volume] in Serum or PlasmaOrdered By: Price Crain on 06-23-2023 Urate [Mass/Vol] 4.8 mg/dL 4.4-7.6 [facility] Urea nitrogen [Mass/volume] in Serum or PlasmaOrdered By: Price Crain on 06-23-2023 Urea nitrogen [Mass/Vol] 17 mg/dL 7-25 [facility] Uric Acidon 06-23-2023 Urate [Mass/Vol] 4.8 mg/dL Normal 4.4-7.6 [facility] Comment on above: Order Comment: Reaso n for Exam Chronic kidney disease, stage 3a;Hypertensive chronic kidney Performed By: #### P HOS, MG, CMP, [id number], URIC ####[facility] [id number] [place] [address] [facility] Urine protein/creatinine rat ioOrdered By: Price Crain on 06-23-2023 Protein/Creatinine (U) [Ratio] 2835 mg/g{Cre} 0-200 [facility] Vitamin D 25 Hydroxy Totalon 06-23-2023 Vitamin D 25 Hydroxy Total 51.0 ng/mL Normal 30-100 [facility] Comment on above: Order Comment: Reaso n for Exam Chronic kidney disease, stage 3a;Hypertensive chronic kidney Result Comment: TOOTIE MIN D STATUS 25([place])VITAMIN D RANGE (ng/mL) Deficient <20 Insufficient 20 to <30 Sufficient 30 to 100 Reference: Dieudonne MF,Brendon NC, Estrella CARTER, et al. Evaluation,treatment, and prevention of vitamin D deficiency; an Endocrine Society clinical practice guideline. JCEM. 2010; 96(7):1911-30.PERFORMED BY:[address] [place], [place] [phone] MEDICAL DIRECTORMEAGAN HARDING M.D. Performed By: #### P HOS, MG, CMP, [id number], URIC ####[address] [address] [facility] Vitamin D+Metabolites [Mass/ volume] in Serum or PlasmaOrdered By: Price Crain on 06-23-2023 Vitamin D+Metabolites [Mass/Vol] 51.0 ng/mL 30-100 [facility] Comment on above: VITAMIN D STATUS 25( [place])VITAMIN D RANGE (ng/mL) Deficient <20 Insufficient 20 to <30Sufficient 30 to 100Reference: Dieudonne MF,Brendon NC, Estrella CARTER, et al. Evaluation,treatment, and prevention of vitamin D deficiency; an Endocrine Society clinical practice guideline. JCEM. 2010; 96(7):1911-30. Complete Blood Count Auto Di ffon 06-18-2023 Basophils (Bld) [#/Vol] 0.0 10*3/uL Normal 0.0-0.2 [facility] Comment on above: Result Comment: PERF ORMED BY:[address] [place], [place] [phone] MEDICAL DIRECTORMEAGAN HARDING M.D. Performed By: #### C MP, CBC ####[address] [address] [place] Basophils/100 WBC (Bld) 0.1 % Normal . [facility] Comment on above: Performed By: #### C MP, CBC ####[place] [place] [address] [place] Eosinophils (Bld) [#/Vol] 0.4 10*3/uL Normal 0.0-0.45 [facility] Comment on above: Performed By: #### C MP, CBC ####[address] [address] [place] Eosinophils/100 WBC (Bld) 4.1 % Normal . [facility] Comment on above: Performed By: #### C MP, CBC ####[facility] [address] Erythrocyte distribution width (RBC) [Ratio] 15.8 % High 12.0-14.8 [facility] Comment on above: Performed By: #### C MP, CBC ####[address] Hematocrit (Bld) [Volume fraction] 30.5 % Low 38.8-50.0 [facility] Comment on above: Performed By: #### C MP, CBC ####[address] Hemoglobin (Bld) [Mass/Vol] 10.2 g/dL Low 13.0-17.0 [facility] Comment on above: Performed By: #### C MP, CBC ####[address] Lymphocytes (Bld) [#/Vol] 0.9 10*3/uL Low 1.00-4.8 [facility] Comment on above: Performed By: #### C MP, CBC ####[address] Lymphocytes/100 WBC (Bld) 10.3 % Normal . [facility] Comment on above: Performed By: #### C MP, CBC ####[address] MCH (RBC) [Entitic mass] 36.0 pg High 27.5-35.2 [facility] Comment on above: Performed By: #### C MP, CBC ####[address] MCV (RBC) [Entitic vol] 108.0 fL High 83.5-101 [facility] Comment on above: Performed By: #### C MP, CBC ####[address] Mean Corpuscular HGB Conc 33.3 g/dL Normal 32.5-35.6 [facility] Comment on above: Performed By: #### C MP, CBC ####[address] [place] [address] [facility] Monocytes (Bld) [#/Vol] 0.4 10*3/uL Normal 0.0-0.8 [facility] Comment on above: Performed By: #### C MP, CBC ####[place] [id number] [facility] Monocytes/100 WBC (Bld) 4.7 % Normal . [facility] Comment on above: Performed By: #### C MP, CBC ####[place] [id number] [facility] Neutrophils (Bld) [#/Vol] 7.1 10*3/uL Normal 1.8-7.7 [facility] Comment on above: Performed By: #### C MP, CBC ####[address] Neutrophils/100 WBC (Bld) 80.8 % Normal . [facility] Comment on above: Performed By: #### C MP, CBC ####[place] [id number] [facility] NRBC% 0.0 /100{WBC} Normal 0-0.5 [facility] Comment on above: Performed By: #### C MP, CBC ####[place] [id number] [facility] Platelet mean volume (Bld) [Entitic vol] 8.5 fL Normal 6.6-10.1 [facility] Comment on above: Performed By: #### C MP, CBC ####[place] [id number] [facility] Platelets (Bld) [#/Vol] 167 10*3/uL Normal 150-450 [facility] Comment on above: Performed By: #### C MP, CBC ####[place] [id number] [facility] RBC (Bld) [#/Vol] 2.83 10*6/uL Low 3.90-5.60 [facility] Comment on above: Performed By: #### C MP, CBC ####[facility] [place] [address] [facility] WBC (Bld) [#/Vol] 8.8 10*3/uL Normal 4.1-10.5 [facility] Comment on above: Performed By: #### C MP, CBC ####[facility] [place] [address] [facility] Comprehensive Metabolic Pane mana 06-18-2023 Albumin [Mass/Vol] 3.7 g/dL Normal 3.5-5.7 [facility] Comment on above: Performed By: #### C MP, CBC ####[address] [address] [facility] Albumin/Globulin [Mass ratio] 1.7 {ratio} Normal [facility] Comment on above: Performed By: #### C MP, CBC ####[address] [address] [facility] ALP [Catalytic activity/Vol] 100 U/L Normal 34-104 [facility] Comment on above: Performed By: #### C MP, CBC ####[address] [address] [facility] ALT [Catalytic activity/Vol] 15 U/L Normal 7-52 [facility] Comment on above: Performed By: #### C MP, CBC ####[facility] [place] [address] [facility] Anion gap [Moles/Vol] 11.0 mmol/L Normal 6.0-15.0 [facility] Comment on above: Performed By: #### C MP, CBC ####[facility] [place] [address] [facility] AST [Catalytic activity/Vol] 17 U/L Normal 13-39 [facility] Comment on above: Performed By: #### C MP, CBC ####[address] [address] [facility] Bilirubin [Mass/Vol] 0.6 mg/dL Normal 0.3-1.0 [facility] Comment on above: Performed By: #### C MP, CBC ####[facility] [place] [address] [facility] Calcium [Mass/Vol] 8.7 mg/dL Normal 8.6-10.3 [facility] Comment on above: Performed By: #### C MP, CBC ####[place] [place] [address] [facility] Chloride [Moles/Vol] 108 mmol/L High 98-107 [facility] Comment on above: Performed By: #### C MP, CBC ####[address] [address] [facility] CO2 [Moles/Vol] 23.5 mmol/L Normal 21.0-31.0 [facility] Comment on above: Performed By: #### C MP, CBC ####[address] [address] [facility] Creatinine [Mass/Vol] 1.81 mg/dL High 0.70-1.30 [facility] Comment on above: Performed By: #### C MP, CBC ####[place] [id number] [facility] Creatinine Clr Calc Pharmacy 39.31 [facility] Comment on above: Result Comment: PERF ORMED BY:[address] [place] [phone] MEDICAL ANYA HARDING M.D. Performed By: #### C MP, CBC ####[place] [id number] [facility] GFR/1.73 sq M.predicted MDRD (S/P/Bld) [Vol rate/Area] 37.799 mL/min/{1.73_m2} [facility] Comment on above: Performed By: #### C MP, CBC ####[address] [address] [facility] Globulin (S) [Mass/Vol] 2.2 g/dL [facility] Comment on above: Performed By: #### C MP, CBC ####[place] [id number] [facility] Glucose [Mass/Vol] 205 mg/dL High 70-100 [facility] Comment on above: Result Comment: [facility] Glucose Reference Range is dependent on time and content of last meal. Glucose of more than 200 mg/dL in a nonstressed, ambulatory subject supports the diagnosis of Diabetes Mellitus. ADA recommended reference range Performed By: #### C MP, CBC ####[facility] [id number] [place] [address] [facility] Potassium [Moles/Vol] 4.5 mmol/L Normal 3.5-5.1 [facility] Comment on above: Performed By: #### C MP, CBC ####[facility] [id number] [place] [id number] [facility] Protein [Mass/Vol] 5.9 g/dL Low 6.4-8.9 [facility] Comment on above: Performed By: #### C MP, CBC ####[facility] [id number] [place] [id number] [facility] Sodium [Moles/Vol] 138 mmol/L Normal 136-145 [facility] Comment on above: Performed By: #### C MP, CBC ####[facility] [address] [place] [address] [facility] Urea nitrogen [Mass/Vol] 23 mg/dL Normal 7-25 [facility] Comment on above: Performed By: #### C MP, CBC ####[facility] [address] [place] [id number] [facility] Physician Orderon 06-15-2023 Physician Order [id number]#1.0 [address]TIFF [address] [facility] RAD - MISCon 06-12-2023 RAD - MISC [id number]#1.0 0TIFF Normal [facility] Consultation Noteon 06-11-20 Consultation Note [id number]#1.0 0TIFF Normal [facility] Lab Reportson 06-11-2023 Lab Reports [id number]#1.00 TIFF Normal [facility] Operative Reporton Operative Report [id number]#1.00 TIFF Normal [facility] Lab Reportson 06-05-2023 Lab Reports [id number]#1.0 0TIFF Normal [facility] Lab Reports [id number]#1.0 0TIFF Normal [facility] Complete Blood Count Auto Di ffon 06-04-2023 Basophils (Bld) [#/Vol] 0.0 10*3/uL Normal 0.0-0.2 [facility] Comment on above: Result Comment: PERF ORMED BY:[address] [place], [place] [phone] MEDICAL DIRECTORMEAGAN HARDING M.D. Performed By: #### C BC, CMP ####[place] [id number] [facility] Basophils/100 WBC (Bld) 0.4 % Normal . [facility] Comment on above: Performed By: #### C BC, CMP ####[place] [id number] [facility] Eosinophils (Bld) [#/Vol] 0.3 10*3/uL Normal 0.0-0.45 [facility] Comment on above: Performed By: #### C BC, CMP ####[place] [id number] [facility] Eosinophils/100 WBC (Bld) 4.6 % Normal . [facility] Comment on above: Performed By: #### C BC, CMP ####[address] Erythrocyte distribution width (RBC) [Ratio] 16.4 % High 12.0-14.8 [facility] Comment on above: Performed By: #### C BC, CMP ####[place] [id number] [facility] Hematocrit (Bld) [Volume fraction] 29.6 % Low 38.8-50.0 [facility] Comment on above: Performed By: #### C BC, CMP ####[place] [id number] [facility] Hemoglobin (Bld) [Mass/Vol] 10.0 g/dL Low 13.0-17.0 [facility] Comment on above: Performed By: #### C BC, CMP ####[place] [id number] [facility] Lymphocytes (Bld) [#/Vol] 0.9 10*3/uL Low 1.00-4.8 [facility] Comment on above: Performed By: #### C AYDEE, CMP ####[place] [id number] [facility] Lymphocytes/100 WBC (Bld) 15.1 % Normal . [facility] Comment on above: Performed By: #### C AYDEE, CMP ####[place] [id number] [facility] MCH (RBC) [Entitic mass] 36.2 pg High 27.5-35.2 [facility] Comment on above: Performed By: #### C AYDEE, CMP ####[place] [id number] [facility] MCV (RBC) [Entitic vol] 107.7 fL High 83.5-101 [facility] Comment on above: Performed By: #### C BC, CMP ####[place] [id number] [facility] Mean Corpuscular HGB Conc 33.6 g/dL Normal 32.5-35.6 [facility] Comment on above: Performed By: #### C BC, CMP ####[place] [id number] [facility] Monocytes (Bld) [#/Vol] 0.4 10*3/uL Normal 0.0-0.8 [facility] Comment on above: Performed By: #### C BC, CMP ####[facility] [id number] [place] [address] [facility] Monocytes/100 WBC (Bld) 6.2 % Normal . [facility] Comment on above: Performed By: #### C AYDEE, CMP ####[facility] Czs9269 [place] [address] [facility] Neutrophils (Bld) [#/Vol] 4.6 10*3/uL Normal 1.8-7.7 [facility] Comment on above: Performed By: #### C AYDEE, CMP ####[facility] Uen6246 [place] [address] [facility] Neutrophils/100 WBC (Bld) 73.7 % Normal . [facility] Comment on above: Performed By: #### C AYDEE, CMP ####[facility] [place] [address] [facility] NRBC% 0.1 /100{WBC} Normal 0-0.5 [facility] Comment on above: Performed By: #### C AYDEE, CMP ####[facility] [id number] [place] [address] [facility] Platelet mean volume (Bld) [Entitic vol] 8.0 fL Normal 6.6-10.1 [facility] Comment on above: Performed By: #### C AYDEE, CMP ####[facility] [place] [address] [facility] Platelets (Bld) [#/Vol] 149 10*3/uL Low 150-450 [facility] Comment on above: Performed By: #### C AYDEE, CMP ####[facility] Hzy0539 [place] [address] [place] RBC (Bld) [#/Vol] 2.75 10*6/uL Low 3.90-5.60 [facility] Comment on above: Performed By: #### C AYDEE, CMP ####[facility] Pqg9410 [place] [address] [facility] WBC (Bld) [#/Vol] 6.2 10*3/uL Normal 4.1-10.5 [facility] Comment on above: Performed By: #### C BC, CMP ####[facility] Hpp1403 [place] [address] [facility] Comprehensive Metabolic Pane mana 06-04-2023 Albumin [Mass/Vol] 4.0 g/dL Normal 3.5-5.7 [facility] Comment on above: Performed By: #### C BC, CMP ####[facility] [place] [address] [facility] Albumin/Globulin [Mass ratio] 1.6 {ratio} Normal [facility] Comment on above: Performed By: #### C BC, CMP ####[facility] [place] [address] [facility] ALP [Catalytic activity/Vol] 100 U/L Normal 34-104 [facility] Comment on above: Performed By: #### C BC, CMP ####[place] [address] [place] [address] [facility] ALT [Catalytic activity/Vol] 17 U/L Normal 7-52 [facility] Comment on above: Performed By: #### C BC, CMP ####[facility] [place] [address] [facility] Anion gap [Moles/Vol] 9.5 mmol/L Normal 6.0-15.0 [facility] Comment on above: Performed By: #### C BC, CMP ####[facility] [place] [address] [facility] AST [Catalytic activity/Vol] 17 U/L Normal 13-39 [facility] Comment on above: Performed By: #### C BC, CMP ####[facility] [place] [address] [facility] Bilirubin [Mass/Vol] 0.5 mg/dL Normal 0.3-1.0 [facility] Comment on above: Performed By: #### C BC, CMP ####[facility] [place] [address] [facility] Calcium [Mass/Vol] 9.0 mg/dL Normal 8.6-10.3 [facility] Comment on above: Performed By: #### C BC, CMP ####[facility] [place] [address] [facility] Chloride [Moles/Vol] 109 mmol/L High 98-107 [facility] Comment on above: Performed By: #### C BC, CMP ####[place] [address] [place] [address] [facility] CO2 [Moles/Vol] 24.3 mmol/L Normal 21.0-31.0 [facility] Comment on above: Performed By: #### C BC, CMP ####[place] [address] [place] [address] [facility] Creatinine [Mass/Vol] 2.08 mg/dL High 0.70-1.30 [facility] Comment on above: Performed By: #### C BC, CMP ####[place] [address] [place] [address] [facility] Creatinine Clr Calc Pharmacy 34.21 [facility] Comment on above: Result Comment: PERF ORMED BY:[address] [place], [place] [phone] MEDICAL DIRECTORMEAGAN HARDING M.D. Performed By: #### C AYDEE, CMP ####[address] [address] [facility] GFR/1.73 sq M.predicted MDRD (S/P/Bld) [Vol rate/Area] 31.990 mL/min/{1.73_m2} [facility] Comment on above: Performed By: #### C BC, CMP ####[address] [address] [facility] Globulin (S) [Mass/Vol] 2.5 g/dL [facility] Comment on above: Performed By: #### C BC, CMP ####[address] [address] [facility] Glucose [Mass/Vol] 168 mg/dL High 70-100 [facility] Comment on above: Result Comment: Concrete Glucose Reference Range is dependent on time and content of last meal. Glucose of more than 200 mg/dL in a nonstressed, ambulatory subject supports the diagnosis of Diabetes Mellitus. ADA recommended reference range Performed By: #### C BC, CMP ####[facility] Fvq6216 [place] [address] [facility] Potassium [Moles/Vol] 4.8 mmol/L Normal 3.5-5.1 [facility] Comment on above: Performed By: #### C BC, CMP ####[facility] [place] [address] [facility] Protein [Mass/Vol] 6.5 g/dL Normal 6.4-8.9 [facility] Comment on above: Performed By: #### C AYDEE, CMP ####[facility] [place] [address] [facility] Sodium [Moles/Vol] 138 mmol/L Normal 136-145 [facility] Comment on above: Performed By: #### C AYDEE, CMP ####[facility] [place] [address] [facility] Urea nitrogen [Mass/Vol] 32 mg/dL High 7-25 [facility] Comment on above: Performed By: #### C AYDEE, CMP ####[facility] Fvx4735 [place] [address] [facility] Formson 06-02-2023 Forms [id number]#1.0 [address]TIFF [address] [facility] Lab Reportson 06-02-2023 Lab Reports [id number]#1.0 0TIFF Normal [facility] Lab Reports [id number]#1.0 0TIFF Normal [facility] Lab Reports [id number]#1.0 0TIFF Normal [facility] Lab Reportson 06-01-2023 Lab Reports [id number]#1.0 0TIFF Normal [facility] C Urineon 05-30-2023 Bacteria identified Cx Nom (U) Microbiology PROCEDURE: Urine Culture [R1] SOURCE: U Random BODY SITE: COLLECTED DATE/TIME: 05/28/2023 15:26 EDT RECEIVED DATE/TIME: 05/28/2023 20:31 EDT START DATE/TIME: 05/28/2023 20:31 EDT FREE TEXT SOURCE: Diego RICKS, Vesna Cortez MD, Vesna Taylor FINAL REPORTS Final Report [] Verified Date/Time: 05/30/2023 09:44 EDT >100,000 cfu/ml Enterobacter cloacae SUSCEPTIBILITY RESULTS __ LEGEND: S=Susceptible, N/R=Not Reported, Blank=Data not available, or drug not advisable or tested, I=Intermediate, ESBL=Extended spectrum beta-lactamase, R=Resistant, TFG=Thymidine-dependen t strain, RADHA=Beta-lactamase positive, DEEPA=mcg/m;(mg/L), S*=Predicted susceptible interp, R*=Predicted resistant interp Entclo Antibiotic DEEPA Dilutn DEEPA Interp Amikacin <=16 S Ampicillin <=8 R* Ampicillin/ <=8/4 R* Sulbactam Aztreonam <=4 S Cefazolin >16 R Cefepime <=2 S Cefoxitin >16 R Ceftazidime <=1 S Ceftazidime/ <=8 S Avibactam Ceftriaxone <=1 S Ciprofloxacin <=1 S Ertapenem <=0.5 S Gentamicin <=4 S Levofloxacin <=2 S Meropenem <=1 S Nitrofurantoin >64 R Piperacillin/ <=16 S Tazobactam Tetracycline <=4 S Tigecycline <=2 S Tobramycin <=4 S Trimethoprim/ <=2/38 S Sulfa Performing Locations R1: This test was performed at: [facility], [address] [place] [address], [id number] , , [facility] Comment on above: Performed By: #### 2 [id number] ####[facility] [address] [place] [address] Consultation Noteon 05-29-20 Consultation Note [id number]#1.0 0TIFF [facility] Reminderson 05-28-2023 Reminders - From: Rupa Mckeon MA To: Diego RICKS, Vesna Taylor; Sent: 05/28/2023 15:45:43 EDT Show up: 05/28/2023 15:45:00 EDT Subject: C&S Reminder/Recall Follow up to look at C&S before his procedure on 06/11/23 [facility] RAD - MISCon 05-27-2023 RAD - [facility] [id number]#1.0 0TIFF [facility] Lab Reportson 05-25-2023 Lab Reports [id number]#1.0 0TIFF [facility] RAD - MISCon 05-22-2023 [facility] [id number]#1.0 0TIFF [facility] Alanine aminotransferase [En zymatic activity/volume] in Serum or PlasmaOrdered By: Brook Huddleston on 05-19-2023 ALT [Catalytic activity/Vol] 17 U/L 7-52 [facility] Albumin [Mass/volume] in Ser um or PlasmaOrdered By: Brook Huddleston on 05-19-2023 Albumin [Mass/Vol] 3.6 g/dL 2.9-4.4 [facility] Albumin [Mass/volume] in Ser um or Plasma by Bromocresol green (BCG) dye binding methoOrdered By: Brook Huddleston on 05-19-2023 Albumin BCG dye [Mass/Vol] 4.0 g/dL 3.5-5.7 [facility] Albumin/Protein.total in 24 hour Urine by ElectrophoresisOrdered By: Brook Huddleston on 05-19-2023 Albumin Elph (24H U) [Mass fraction] 35.4 % . [facility] Alkaline phosphatase [Enzyma tic activity/volume] in Serum or PlasmaOrdered By: Brook Huddleston on 05-19-2023 ALP [Catalytic activity/Vol] 99 U/L 34-104 [facility] Aspartate aminotransferase [ Enzymatic activity/volume] in Serum or PlasmaOrdered By: Brook Huddleston on 05-19-2023 AST [Catalytic activity/Vol] 15 U/L 13-39 [facility] Basophils Auto (Bld) [#/Vol] Ordered By: Brook Huddleston on 05-19-2023 Basophils (Bld) [#/Vol] 0.0 10*3/uL 0.0-0.2 [facility] Basophils/100 WBC Auto (Bld) Ordered By: Brook Huddleston on 05-19-2023 Basophils/100 WBC (Bld) 0.6 % . [facility] Bilirubin.total [Mass/volume ] in Serum or PlasmaOrdered By: Brook Huddleston on 05-19-2023 Bilirubin [Mass/Vol] 0.3 mg/dL 0.3-1.0 [facility] Calcium [Mass/volume] in Ser um or PlasmaOrdered By: Brook Huddleston on 05-19-2023 Calcium [Mass/Vol] 9.1 mg/dL 8.6-10.3 [facility] Carbon dioxide, total [Moles /volume] in Serum or PlasmaOrdered By: Brook Huddleston on 05-19-2023 CO2 [Moles/Vol] 25.3 mmol/L 21.0-31.0 [facility] Chloride [Moles/volume] in S valeria or PlasmaOrdered By: Brook Huddleston on 05-19-2023 Chloride [Moles/Vol] 108 mmol/L 98-107 [facility] Complete Blood Count Auto Di ffon 05-19-2023 Basophils (Bld) [#/Vol] 0.0 10*3/uL Normal 0.0-0.2 [facility] Comment on above: Result Comment: PERF ORMED BY:[address] [place], [place] [phone] MEDICAL DIRECTORMEAGAN HARDING M.D. Performed By: #### C BC ####[address] Basophils/100 WBC (Bld) 0.6 % Normal . [facility] Comment on above: Performed By: #### C BC ####[address] Eosinophils (Bld) [#/Vol] 0.4 10*3/uL Normal 0.0-0.45 [facility] Comment on above: Performed By: #### C BC ####[address] Eosinophils/100 WBC (Bld) 7.0 % Normal . [facility] Comment on above: Performed By: #### C BC ####[address] Erythrocyte distribution width (RBC) [Ratio] 16.4 % High 12.0-14.8 [facility] Comment on above: Performed By: #### C BC ####[address] Hematocrit (Bld) [Volume fraction] 29.5 % Low 38.8-50.0 [facility] Comment on above: Performed By: #### C BC ####[address] Hemoglobin (Bld) [Mass/Vol] 9.9 g/dL Low 13.0-17.0 [facility] Comment on above: Performed By: #### C BC ####[address] Lymphocytes (Bld) [#/Vol] 1.1 10*3/uL Normal 1.00-4.8 [facility] Comment on above: Performed By: #### C BC ####[address] Lymphocytes/100 WBC (Bld) 17.4 % Normal . [facility] Comment on above: Performed By: #### C BC ####[address] MCH (RBC) [Entitic mass] 36.3 pg High 27.5-35.2 [facility] Comment on above: Performed By: #### C BC ####[address] MCV (RBC) [Entitic vol] 107.8 fL High 83.5-101 [facility] Comment on above: Performed By: #### C BC ####[address] Mean Corpuscular HGB Conc 33.6 g/dL Normal 32.5-35.6 [facility] Comment on above: Performed By: #### C BC ####[address] Monocytes (Bld) [#/Vol] 0.4 10*3/uL Normal 0.0-0.8 [facility] Comment on above: Performed By: #### C BC ####[address] Monocytes/100 WBC (Bld) 6.0 % Normal . [facility] Comment on above: Performed By: #### C BC ####[address] Neutrophils (Bld) [#/Vol] 4.2 10*3/uL Normal 1.8-7.7 [facility] Comment on above: Performed By: #### C BC ####[address] [address] [facility] Neutrophils/100 WBC (Bld) 69.0 % Normal . [facility] Comment on above: Performed By: #### C BC ####[place] [address] [place] [address] [facility] NRBC% 0.0 /100{WBC} Normal 0-0.5 [facility] Comment on above: Performed By: #### C BC ####[address] [address] [facility] Platelet mean volume (Bld) [Entitic vol] 8.6 fL Normal 6.6-10.1 [facility] Comment on above: Performed By: #### C BC ####[address] [address] [facility] Platelets (Bld) [#/Vol] 160 10*3/uL Normal 150-450 [facility] Comment on above: Performed By: #### C BC ####[address] [address] [facility] RBC (Bld) [#/Vol] 2.73 10*6/uL Low 3.90-5.60 [facility] Comment on above: Performed By: #### C BC ####[address] [address] [facility] WBC (Bld) [#/Vol] 6.1 10*3/uL Normal 4.1-10.5 [facility] Comment on above: Performed By: #### C BC ####[address] [address] [facility] Comprehensive Metabolic Pane mana 05-19-2023 Albumin [Mass/Vol] 4.0 g/dL Normal 3.5-5.7 [facility] Comment on above: Performed By: #### C MP, LDH ####[address] [address] [facility]#### JOSE C,URINE, IMM RADHA, UPE RAND, KAPPA, SPE ####[facility] , Albumin/Globulin [Mass ratio] 1.6 {ratio} Normal [facility] Comment on above: Performed By: #### C MP, LDH ####[address]#### JOSE C,URINE, IMM RADHA, UPE RAND, KAPPA, SPE ####[facility] , ALP [Catalytic activity/Vol] 99 U/L Normal 34-104 [facility] Comment on above: Performed By: #### C MP, LDH ####[place] [address] [place]#### JOSE C,URINE, IMM RADHA, UPE RAND, KAPPA, SPE ####[facility] , ALT [Catalytic activity/Vol] 17 U/L Normal 7-52 [facility] Comment on above: Performed By: #### C MP, LDH ####[address]#### JOSE C,URINE, IMM RADHA, UPE RAND, KAPPA, SPE ####[facility] , Anion gap [Moles/Vol] 10.4 mmol/L Normal 6.0-15.0 [facility] Comment on above: Performed By: #### C MP, LDH ####[place] [address] [place]#### JOSE C,URINE, IMM RADHA, UPE RAND, KAPPA, SPE ####[facility] , AST [Catalytic activity/Vol] 15 U/L Normal 13-39 [facility] Comment on above: Performed By: #### C MP, LDH ####[place] [address] [place]#### JOSE C,URINE, IMM RADHA, UPE RAND, KAPPA, SPE ####[facility] , Bilirubin [Mass/Vol] 0.3 mg/dL Normal 0.3-1.0 [facility] Comment on above: Performed By: #### C MP, LDH ####[place] [address] [place]#### JOSE C,URINE, IMM RADHA, UPE RAND, KAPPA, SPE ####[facility] , Calcium [Mass/Vol] 9.1 mg/dL Normal 8.6-10.3 [facility] Comment on above: Performed By: #### C MP, LDH ####[place] [address] [place]#### JOSE C,URINE, IMM RADHA, UPE RAND, KAPPA, SPE ####[facility] , Chloride [Moles/Vol] 108 mmol/L High 98-107 [facility] Comment on above: Performed By: #### C MP, LDH ####[place] [address] [place]#### JOSE C,URINE, IMM RADHA, UPE RAND, KAPPA, SPE ####[facility] , CO2 [Moles/Vol] 25.3 mmol/L Normal 21.0-31.0 [facility] Comment on above: Performed By: #### C MP, LDH ####[address]#### JOSE C,URINE, IMM RADHA, UPE RAND, KAPPA, SPE ####[facility] , Creatinine [Mass/Vol] 1.70 mg/dL High 0.70-1.30 [facility] Comment on above: Performed By: #### C MP, LDH ####[place] [address] [place]#### JOSE C,URINE, IMM RADHA, UPE RAND, KAPPA, SPE ####[facility] , Creatinine Clr Calc Pharmacy 44.34 [facility] Comment on above: Performed By: #### C MP, LDH ####[place] [address] [place]#### JOSE C,URINE, IMM RADHA, UPE RAND, KAPPA, SPE ####[facility] , GFR/1.73 sq M.predicted MDRD (S/P/Bld) [Vol rate/Area] 40.753 mL/min/{1.73_m2} [facility] Comment on above: Performed By: #### C MP, LDH ####[address]#### JOSE C,URINE, IMM RADHA, UPE RAND, KAPPA, SPE ####[facility] , Globulin (S) [Mass/Vol] 2.5 g/dL [facility] Comment on above: Performed By: #### C MP, LDH ####[address]#### JOSE C,URINE, IMM RADHA, UPE RAND, KAPPA, SPE ####[facility] , Glucose [Mass/Vol] 253 mg/dL High 70-100 [facility] Comment on above: Result Comment: [facility] Glucose Reference Range is dependent on time and content of last meal. Glucose of more than 200 mg/dL in a nonstressed, ambulatory subject supports the diagnosis of Diabetes Mellitus. ADA recommended reference range Performed By: #### C MP, LDH ####[place] [address] [place]#### JOSE C,URINE, IMM RADHA, UPE RAND, KAPPA, SPE ####[facility] , Potassium [Moles/Vol] 4.7 mmol/L Normal 3.5-5.1 [facility] Comment on above: Performed By: #### C MP, LDH ####[place] [address] [place]#### JOSE C,URINE, IMM RADHA, UPE RAND, KAPPA, SPE ####[facility] , Protein [Mass/Vol] 6.5 g/dL Normal 6.0-8.5 [facility] Comment on above: Performed By: #### C MP, LDH ####[facility] [place] [address] [place]#### JOSE C,URINE, IMM RADHA, UPE RAND, KAPPA, SPE ####[facility] , Sodium [Moles/Vol] 139 mmol/L Normal 136-145 [facility] Comment on above: Performed By: #### C MP, LDH ####[facility] [place] [address] [place]#### JOSE C,URINE, IMM RADHA, UPE RAND, KAPPA, SPE ####[facility] , Urea nitrogen [Mass/Vol] 24 mg/dL Normal 7-25 [facility] Comment on above: Performed By: #### C MP, LDH ####[address] [place] [address] [place]#### JOSE C,URINE, IMM RADHA, UPE RAND, KAPPA, SPE ####[facility] , Consultation Noteon 05-19-20 Consultation Note [id number]. 00CD:[address] [facility] Creatinine [Mass/volume] in Serum or PlasmaOrdered By: Brook Huddleston on 05-19-2023 Creatinine [Mass/Vol] 1.70 mg/dL 0.70-1.30 [facility] Eosinophils Auto (Bld) [#/Vo l]Ordered By: Brook Huddleston on 05-19-2023 Eosinophils (Bld) [#/Vol] 0.4 10*3/uL 0.0-0.45 [facility] Eosinophils/100 WBC Auto (Bl d)Ordered By: Brook Huddleston on 05-19-2023 Eosinophils/100 WBC (Bld) 7.0 % . [facility] Erythrocyte distribution wid th Auto (RBC) [Ratio]Ordered By: Brook Huddleston on 05-19-2023 Erythrocyte distribution width (RBC) [Ratio] 16.4 % 12.0-14.8 [facility] Free K+L LT Chains, Qn, Son 05-19-2023 Free [place] Light Chains, S 34.4 mg/L High 3.3-19.4 [facility] Comment on above: Performed By: #### C MP, LDH ####[facility]#### JOSE C,URINE, IMM RADHA, UPE RAND, KAPPA, SPE ####[facility] , Free Lambda Light Chains, S 24.1 mg/L Normal 5.7-26.3 [facility] Comment on above: Performed By: #### C MP, LDH ####[address] [place] [address] [place]#### JOSE C,URINE, IMM RADHA, UPE RAND, KAPPA, SPE ####[facility] , [place]/Lambda Ratio, S 1.43 Normal 0.26-1.65 [facility] Comment on above: Result Comment: Perf ormed at: CB - [facility] [place] [id number] Hunting Guide: Melchor Agrawal PhD, Phone: [phone] BY:[address] [place], [place] [id number] MEDICAL DIRECTORMEAGAN HARDING M.D. Performed By: #### C MP, LDH ####[address]#### JOSE C,URINE, IMM RADHA, UPE RAND, KAPPA, SPE ####[facility] , Gamma globulin/Protein.total in 24 hour Urine by ElectrophoresisOrdered By: Brook Huddleston on 05-19-2023 Gamma globulin Elph (24H U) [Mass fraction] 22.0 % . [facility] Globulin Calc (S) [Mass/Vol] Ordered By: Brook Huddleston on 05-19-2023 Globulin (S) [Mass/Vol] 2.5 g/dL [facility] Glucose [Mass/volume] in Ser um or PlasmaOrdered By: Brook Huddleston on 05-19-2023 Glucose [Mass/Vol] 253 mg/dL 70-100 [facility] Comment on above: ADA recommended refe rence rangeRandom Glucose Reference Range is dependent on time and content of last meal. Glucose of more than 200 mg/dL in a nonstressed, ambulatory subject supports the diagnosis of Diabetes Mellitus. Hematocrit Auto (Bld) [Volum e fraction]Ordered By: Broko Huddleston on 05-19-2023 Hematocrit (Bld) [Volume fraction] 29.5 % 38.8-50.0 [facility] Hemoglobin [Mass/volume] in BloodOrdered By: Brook Huddleston on 05-19-2023 Hemoglobin (Bld) [Mass/Vol] 9.9 g/dL 13.0-17.0 [facility] IgA [Mass/volume] in Serum o r PlasmaOrdered By: Brook Huddleston on 05-19-2023 IgA [Mass/Vol] 143 mg/dL 61-437 [facility] IgG [Mass/volume] in Serum o r PlasmaOrdered By: Brook Huddleston on 05-19-2023 IgG [Mass/Vol] 891 mg/dL 603-1613 [facility] IgM [Mass/volume] in Serum o r PlasmaOrdered By: Brook Huddleston on 05-19-2023 IgM [Mass/Vol] 52 mg/dL 15-143 [facility] Comment on above: Performed at: [facility] [address] [id number] Director: Melchor Agrawal PhD, Phone: [phone] Immunofixation for UrineOrde red By: Brook Huddleston on 05-19-2023 Interpretation Immunofixation (U) [Interp] Comment: . [facility] Comment on above: Presence of monoclon al protein is unclear at this time. Suggestrepeat in 3 to 6 months if clinically indicated.Performed at: [facility] [address] [id number] Director: Melchor Agrawal PhD, Phone: [phone] Immunofixation, (JOSE C), Urine on 05-19-2023 Immunofixation, (JOSE C), Urine Comment: Normal . [facility] Comment on above: Result Comment: Pres ence of monoclonal protein is unclear at this time. Suggest repeat in 3 to 6 months if clinically indicated. Performed at: [facility] [address] [place], [place] [id number] Hunting Guide: Melchor Agrawal PhD, Phone: [phone] Performed By: #### C MP, LDH ####[facility]#### JOSE C,URINE, IMM RADHA, UPE RAND, KAPPA, SPE ####[facility] , Immunoglobulin light chains. kappa.free [Mass/volume] in SerumOrdered By: Brook Huddleston on 05-19-2023 Immunoglobulin light chains.kappa.free (S) [Mass/Vol] 34.4 mg/L 3.3-19.4 [facility] Immunoglobulin light chains. kappa.free/Immunoglobulin light chains.lambda.free [MassOrdered By: Brook Huddleston on 05-19-2023 Immunoglobulin light chains.kappa.free/Immu noglobulin light chains.lambda.free (S) [Mass ratio] 1.43 0.26-1.65 [facility] Comment on above: Performed at: [employer] [facility] [id number] [place], [place] [id number] Director: Melchor Agrawal PhD, Phone: [phone] Immunoglobulin light chains. lambda.free [Mass/volume] in Serum or PlasmaOrdered By: Brook Hudldeston on 05-19-2023 Immunoglobulin light chains.lambda.free [Mass/Vol] 24.1 mg/L 5.7-26.3 [facility] Immunoglobulins A/G/M, Qn, S yue 05-19-2023 Immunoglobulin A, Serum 143 mg/dL Normal 61-437 [facility] Comment on above: Performed By: #### C MP, LDH ####[facility]#### JOSE C,URINE, IMM RADHA, UPE RAND, KAPPA, SPE ####[facility] , Immunoglobulin G 891 mg/dL Normal 603-1613 [facility] Comment on above: Performed By: #### C MP, LDH ####[address] [place] [address] [facility]#### JOSE C,URINE, IMM RADHA, UPE RAND, KAPPA, SPE ####[facility] , Immunoglobulin M, Serum 52 mg/dL Normal 15-143 [facility] Comment on above: Result Comment: Perf ormed at: - [facility] [address] [id number] Hunting Guide: Melchor Agrawal PhD, Phone: [phone] Performed By: #### C MP, LDH ####[place] [id number] [facility]#### JOSE C,URINE, IMM RADHA, UPE RAND, KAPPA, SPE ####[facility] , LDH Lactate Dehydrogenaseon 05-19-2023 LDH Lactate Dehydrogenase 154 U/L Normal 140-271 [facility] Comment on above: Result Comment: PERF ORMED BY:[address], [place] [id number] MEDICAL DIRECTORMEAGAN HARDING M.D. Performed By: #### C MP, LDH ####[place] [id number] [facility]#### JOSE C,URINE, IMM RADHA, UPE RAND, KAPPA, SPE ####[facility] , Lab Reportson 05-19-2023 Lab Reports [id number]. 00CD:[address] [facility] Lab Reports [id number]. 00CD:[address] [facility] Lactate dehydrogenase [Enzym atic activity/volume] in Serum or Plasma by Lactate to pyOrdered By: Brook Huddleston on 05-19-2023 LDH Lactate to pyruvate reaction [Catalytic activity/Vol] 154 U/L 140-271 [facility] Leukocytes [#/volume] correc lizbet for nucleated erythrocytes in Blood by Automated counOrdered By: Brook Huddleston on 05-19-2023 WBC corrected for nucl RBC Auto (Bld) [#/Vol] 6.1 10*3/uL 4.1-10.5 [facility] Lymphocytes Auto (Bld) [#/Vo l]Ordered By: Brook Huddleston on 05-19-2023 Lymphocytes (Bld) [#/Vol] 1.1 10*3/uL 1.00-4.8 [facility] Lymphocytes/100 WBC Auto (Bl d)Ordered By: Brook Huddleston on 05-19-2023 Lymphocytes/100 WBC (Bld) 17.4 % . [facility] MCH Auto (RBC) [Entitic mass ]Ordered By: Brook Huddleston on 05-19-2023 MCH (RBC) [Entitic mass] 36.3 pg 27.5-35.2 [facility] MCHC Auto (RBC) [Mass/Vol]Or dered By: Brook Huddleston on 05-19-2023 MCHC (RBC) [Mass/Vol] 33.6 g/dL 32.5-35.6 [facility] MCV Auto (RBC) [Entitic vol] Ordered By: Brook Huddleston on 05-19-2023 MCV (RBC) [Entitic vol] 107.8 fL 83.5-101 [facility] Monocytes Auto (Bld) [#/Vol] Ordered By: Brook Huddleston on 05-19-2023 Monocytes (Bld) [#/Vol] 0.4 10*3/uL 0.0-0.8 [facility] Monocytes/100 WBC Auto (Bld) Ordered By: Brook Huddleston on 05-19-2023 Monocytes/100 WBC (Bld) 6.0 % . [facility] Neutrophils Auto (Bld) [#/Vo l]Ordered By: Brook Huddleston on 05-19-2023 Neutrophils (Bld) [#/Vol] 4.2 10*3/uL 1.8-7.7 [facility] Neutrophils/100 WBC Auto (Bl d)Ordered By: Brook Huddleston on 05-19-2023 Neutrophils/100 WBC (Bld) 69.0 % . [facility] No Panel InformationOrdered By: Brook Huddleston on 05-19-2023 Estimated GFR (CKD-EPI) 40.753 mL/Min [facility] Creatinine Clearance (Chem 44.34 [facility] Protein Electrophoresis M-Anselmo Not observed g/dL Not Observed [facility] Protein Electrophoresis Note See comment . [facility] Comment on above: Protein electrophore sis scan will follow via computer,mail, or monument letterer delivery. Urine Random Prot Electrophor Note See comment . [facility] Comment on above: Protein electrophore sis scan will follow via computer,mail, or monument letterer delivery. Nucleated erythrocytes [Pres ence] in Blood by Automated countOrdered By: Brook Huddleston on 05-19-2023 Nucleated RBC Auto Ql (Bld) 0.0 /100{WBC} 0-0.5 [facility] Operative Reporton 3 Operative Report [id number]#1.0 0CD:[address] [facility] Platelet mean volume Auto (B ld) [Entitic vol]Ordered By: Brook Huddleston on 05-19-2023 Platelet mean volume (Bld) [Entitic vol] 8.6 fL 6.6-10.1 [facility] Platelets Auto (Bld) [#/Vol] Ordered By: Brook Huddleston on 05-19-2023 Platelets (Bld) [#/Vol] 160 10*3/uL 150-450 [facility] Potassium [Moles/volume] in Serum or PlasmaOrdered By: Brook Huddleston on 05-19-2023 Potassium [Moles/Vol] 4.7 mmol/L 3.5-5.1 [facility] Protein Electro, Random Urin yovany 05-19-2023 Albumin, Urine 35.4 % Normal . [facility] Comment on above: Performed By: #### C MP, LDH ####[facility] [id number] [place] [address] [facility]#### JOSE C,URINE, IMM RADHA, UPE RAND, KAPPA, SPE ####[facility] , Coifg-8-Erjpmmyo, Urine 5.0 % Normal . [facility] Comment on above: Performed By: #### C MP, LDH ####[facility] [address]#### JOSE C,URINE, IMM RADHA, UPE RAND, KAPPA, SPE ####[facility] , Innxg-4-Euhtaefz, Urine 16.8 % Normal . [facility] Comment on above: Performed By: #### C MP, LDH ####[address]#### JOSE C,URINE, IMM RADHA, UPE RAND, KAPPA, SPE ####[facility] , Beta Globulin, Urine 20.7 % Normal . [facility] Comment on above: Performed By: #### C MP, LDH ####[address]#### JOSE C,URINE, IMM RADHA, UPE RAND, KAPPA, SPE ####[facility] , Gamma Globulin, Urine 22.0 % Normal . [facility] Comment on above: Performed By: #### C MP, LDH ####[address]#### JOSE C,URINE, IMM RADHA, UPE RAND, KAPPA, SPE ####[facility] , M-Anselmo % Comment: Normal Not Observed [facility] Comment on above: Result Comment: UPE shows asymmetrical gamma. Performed By: #### C MP, LDH ####[place] [address] [place]#### JOSE C,URINE, IMM RADHA, UPE RAND, KAPPA, SPE ####[facility] , Please Note: Normal . [facility] Comment on above: Result Comment: Prot ein electrophoresis scan will follow via computer, mail, or monument letterer delivery.PERFORMED BY:[address] [place], [place] [phone] MEDICAL ANYA HARDING M.D. Performed By: #### C MP, LDH ####[address]#### JOSE C,URINE, IMM RADHA, UPE RAND, KAPPA, SPE ####[facility] , Protein (U) [Mass/Vol] 94.6 mg/dL Normal Not Estab. [facility] Comment on above: Performed By: #### C MP, LDH ####[address]#### JOSE C,URINE, IMM RADHA, UPE RAND, KAPPA, SPE ####[facility] , Protein Electrophoresis, Ser umon 05-19-2023 Albumin [Mass/Vol] 3.6 g/dL Normal 2.9-4.4 [facility] Comment on above: Performed By: #### C MP, LDH ####[address]#### JOSE C,URINE, IMM RADHA, UPE RAND, KAPPA, SPE ####[facility] , Albumin/Globulin [Mass ratio] 1.2 {ratio} Normal 0.7-1.7 [facility] Comment on above: Performed By: #### C MP, LDH ####[address]#### JOSE C,URINE, IMM RADHA, UPE RAND, KAPPA, SPE ####[facility] , Awiaa-8-Xcljqxjm 0.3 g/dL Normal 0.0-0.4 [facility] Comment on above: Performed By: #### C MP, LDH ####[place] [address] [place]#### JOSE C,URINE, IMM RADHA, UPE RAND, KAPPA, SPE ####[facility] , Btlpq-5-Rwwjtssb 0.9 g/dL Normal 0.4-1.0 [facility] Comment on above: Performed By: #### C MP, LDH ####[place] [address] [place]#### JOSE C,URINE, IMM RADHA, UPE RAND, KAPPA, SPE ####[facility] , Beta Globulin 0.9 g/dL Normal 0.7-1.3 [facility] Comment on above: Performed By: #### C MP, LDH ####[address]#### JOSE C,URINE, IMM RADHA, UPE RAND, KAPPA, SPE ####[facility] , Gamma Globulin 0.8 g/dL Normal 0.4-1.8 [facility] Comment on above: Performed By: #### C MP, LDH ####[address]#### JOSE C,URINE, IMM RADHA, UPE RAND, KAPPA, SPE ####[facility] , Globulin (S) [Mass/Vol] 2.9 g/dL Normal 2.2-3.9 [facility] Comment on above: Performed By: #### C MP, LDH ####[address]#### JOSE C,URINE, IMM RADHA, UPE RAND, KAPPA, SPE ####[facility] , M-Anselmo Not Observed Normal Not Observed [facility] Comment on above: Performed By: #### C MP, LDH ####[place] [address] [place]#### JOSE C,URINE, IMM RADHA, UPE RAND, KAPPA, SPE ####[facility] , SPE-Note Normal . [facility] Comment on above: Result Comment: Prot ein electrophoresis scan will follow via computer, mail, or monument letterer delivery. Performed By: #### C MP, LDH ####[address]#### JOSE C,URINE, IMM RADHA, UPE RAND, KAPPA, SPE ####[facility] , Protein [Mass/volume] in Ser um or PlasmaOrdered By: Brook Huddleston on 05-19-2023 Protein [Mass/Vol] 6.5 g/dL 6.0-8.5 [facility] Protein [Mass/volume] in Uri neOrdered By: Brook Huddleston on 05-19-2023 Protein (U) [Mass/Vol] 94.6 mg/dL Not Estab. Fi [facility] Protein.monoclonal/Protein.t otal in 24 hour Urine by ElectrophoresisOrdered By: Brook Huddleston on 05-19-2023 Protein.monoclonal Elph (24H U) [Mass fraction] Comment: % Not Observed [facility] Comment on above: UPE shows asymmetric al gamma. RBC Auto (Bld) [#/Vol]Ordere d By: Brook Huddleston on 05-19-2023 RBC (Bld) [#/Vol] 2.73 10*6/uL 3.90-5.60 [facility] [employer] - Clinical Noteon [employer] - Clinical Note [id number] 0CD:[address] [facility] Serum globulin measurement ( mass/volume)Ordered By: Brook Huddleston on 05-19-2023 Globulin (S) [Mass/Vol] 2.9 g/dL 2.2-3.9 [facility] Serum or plasma albumin/glob ulin mass ratioOrdered By: Brook Huddleston on 05-19-2023 Albumin/Globulin [Mass ratio] 1.6 {ratio} [facility] Albumin/Globulin [Mass ratio] 1.2 {ratio} 0.7-1.7 [facility] Serum or plasma alpha 1 glob ulin measurement by electrophoresis (mass/volume)Ordered By: Brook Huddleston on 05-19-2023 Alpha 1 globulin Elph [Mass/Vol] 0.3 g/dL 0.0-0.4 [facility] Serum or plasma alpha 2 glob ulin measurement by electrophoresis (mass/volume)Ordered By: Brook Huddleston on 05-19-2023 Alpha 2 globulin Elph [Mass/Vol] 0.9 g/dL 0.4-1.0 [facility] Serum or plasma anion gap de terminationOrdered By: Brook Huddleston on 05-19-2023 Anion gap [Moles/Vol] 10.4 mmol/L 6.0-15.0 [facility] Serum or plasma beta globuli n measurement by electrophoresis (mass/volume)Ordered By: Brook Huddleston on 05-19-2023 Beta globulin Elph [Mass/Vol] 0.9 g/dL 0.7-1.3 [facility] Serum or plasma gamma globul in measurement by electrophoresis (mass/volume)Ordered By: Brook Huddleston on 05-19-2023 Gamma globulin Elph [Mass/Vol] 0.8 g/dL 0.4-1.8 [facility] Sodium [Moles/volume] in Ser um or PlasmaOrdered By: Brook Huddleston on 05-19-2023 Sodium [Moles/Vol] 139 mmol/L 136-145 [facility] Urea nitrogen [Mass/volume] in Serum or PlasmaOrdered By: Brook Huddleston on 05-19-2023 Urea nitrogen [Mass/Vol] 24 mg/dL 7-25 [facility] Urine alpha 1 globulin/total protein by electrophoresisOrdered By: Brook Huddleston on 05-19-2023 Alpha 1 globulin Elph (U) [Mass fraction] 5.0 % . [facility] Urine alpha 2 globulin/total protein ratio by electrophoresisOrdered By: Brook Huddleston on 05-19-2023 Alpha 2 globulin Elph (U) [Mass fraction] 16.8 % . [facility] Urine beta globulin measurem ent by electrophoresis (mass/volume)Ordered By: Brook Huddleston on 05-19-2023 Beta globulin Elph (U) [Mass/Vol] 20.7 % . [facility] WBC Auto (Bld) [#/Vol]Ordere d By: Brook Huddleston on 05-19-2023 WBC (Bld) [#/Vol] 6.1 10*3/uL 4.1-10.5 [facility] XR abdomen 1Von 05-19-2023 XR abdomen 1V Normal [facility] Ambulatory Visit Summaryon 0 05-15-2023 Ambulatory Visit Summary PATSY MILLS :1945 Visit Date:05/15/2023 Ambulatory Visit Instructions Your Diagnosis Hydroureteronephrosis Ureteral stricture Noncompliant bladder Prostate cancer BPH with urinary obstruction Incomplete bladder emptying OAB (overactive bladder) Family history of prostate cancer in father Kidney stones Tests Performed XR Abdomen 1 View -- Results Pending -- Please visit your patient portal for your results or contact your primary care physician. Your Care Team Attending Physician - Vesna Cortez MD Primary Care Physician - HELEN HEATH MD This Is Your Medications List Contact prescribing physician if questions or concerns acyclovir (Zovirax 400 mg Tab) aspirin (aspirin 81 mg Chew Tab) atorvastatin (atorvastatin 20 mg Tab) bifidobacterium-lactob acillus (Probiotic + Colostrum) cholecalciferol (Vitamin D3 2000 intl units) famotidine (famotidine 20 mg Tab) insulin glargine (Lantus insulin) insulin lispro (Humalog) lenalidomide (Revlimid 5 mg oral capsule) metformin (metformin 500 mg Tab) potassium chloride (potassium chloride 20 mEq ER Tab) Procedures Performed Cystostomy and insertion of suprapubic tube (03/05/2023), Cystoscopic insertion of ureteric stent (12/10/2022), TURP - Transurethral resection of prostate (08/27/2022), Transurethral insertion of prostatic urethral lift implant (05/05/2022), Cystoscopic removal of ureteric stent (08/20/2012), Cystoscopic ureteroneocystostomy with insertion 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 Discharge Vitals Height 171 cm Height 67 in Weight 94 kg Weight 206.8 lb BMI 32.15 What to do next You Need to Schedule the Following Appointments Follow Up with Diego RICKS, Vesna Taylor, URL, URO When: Comments: -KUB -sched cysto/R stent exchange and L ESWL and SPT change Where: [address] [place] [phone] Medications What How Much When Instructions Unchanged acyclovir (Zovirax 400 mg Tab) 1 Tablets By Mouth 2 times a day Contact prescribing physician if questions or concerns Unchanged aspirin (aspirin 81 mg Chew Tab) Chewed Every day Contact prescribing physician if questions or concerns Unchanged atorvastatin (atorvastatin 20 mg Tab) 1 Tablets By Mouth Every day Contact prescribing physician if questions or concerns Unchanged bifidobacterium-lactob acillus (Probiotic + Colostrum) By Mouth Every day Contact prescribing physician if questions or concerns Unchanged cholecalciferol (Vitamin D3 2000 intl units) By Mouth Every day Contact prescribing physician if questions or concerns Unchanged famotidine (famotidine 20 mg Tab) 1 Tablets By Mouth Once a day (at bedtime) Contact prescribing physician if questions or concerns Unchanged insulin glargine (Lantus insulin) 25 Units Subcutaneous Once a day (at bedtime) Contact prescribing physician if questions or concerns Unchanged insulin lispro (Humalog) 8 Units Subcutaneous Contact prescribing physician if questions or concerns Unchanged lenalidomide (Revlimid 5 mg oral capsule) 1 Capsules By Mouth Every other day Contact prescribing physician if questions or concerns Unchanged metformin (metformin 500 mg Tab) 1 Tablets By Mouth 2 times a day Contact prescribing physician if questions or concerns Unchanged potassium chloride (potassium chloride 20 mEq ER Tab) 1 Tablets By Mouth Every day Contact prescribing physician if questions or concerns Allergies Myrbetriq (Multiple open mouth wounds) gabapentin (Unknown, Rash) Problems Ongoing - Any problem that you are currently receiving treatment for. Asymptomatic microscopic hematuria Bilateral hydronephrosis BPH with urinary obstruction Diabetes Dysuria Elevated cholesterol Family history of prostate cancer in father Glycosuria History of kidney stones HTN (hypertension) Hydroureter Hydroureteronephrosis Incomplete bladder emptying Kidney stone Kidney stones Microhematuria Nocturia Noncompliant bladder OAB (overactive bladder) Prostate cancer Rheumatoid arthritis Ureteral stricture UTI (urinary tract infection) UTI symptoms Weak urine stream Normal [facility] Patient Educationon 05-15-20 Patient Education Obstetrics and Gynecology Overactive Bladder, Adult Overactive bladder is a condition in which a person has a sudden and frequent need to urinate. A person might also leak urine if he or she cannot get to the bathroom fast enough (urinary incontinence). Sometimes, symptoms can interfere with work or social activities. What are the causes? Overactive bladder is associated with poor nerve signals between your bladder and your brain. Your bladder may get the signal to empty before it is full. You may also have very sensitive muscles that make your bladder squeeze too soon. This condition may also be caused by other factors, such as: ? Medical conditions: ? Urinary tract infection. ? Infection of nearby tissues. ? Prostate enlargement. ? Bladder stones, inflammation, or tumors. ? Diabetes. ? Muscle or nerve weakness, especially from these conditions: ? A spinal cord injury. ? Stroke. ? Multiple sclerosis. ? Parkinson's disease. ? Other causes: ? Surgery on the uterus or urethra. ? Drinking too much caffeine or alcohol. ? Certain medicines, especially those that eliminate extra fluid in the body (diuretics). ? Constipation. What increases the risk? You may be at greater risk for overactive bladder if you: ? Are an older adult. ? Smoke. ? Are going through menopause. ? Have prostate problems. ? Have a neurological disease, such as stroke, dementia, Parkinson's disease, or multiple sclerosis (MS). ? Eat or drink alcohol, spicy food, caffeine, and other things that irritate the bladder. ? Are overweight or obese. What are the signs or symptoms? Symptoms of this condition include a sudden, strong urge to urinate. Other symptoms include: ? Leaking urine. ? Urinating 8 or more times a day. ? Waking up to urinate 2 or more times overnight. How is this diagnosed? This condition may be diagnosed based on: ? Your symptoms and medical history. ? A physical exam. ? Blood or urine tests to check for possible causes, such as infection. You may also need to see a health care provider who specializes in urinary tract problems. This is called a urologist. How is this treated? Treatment for overactive bladder depends on the cause of your condition and whether it is mild or severe. Treatment may include: ? Bladder training, such as: ? Learning to control the urge to urinate by following a schedule to urinate at regular intervals. ? Doing Kegel exercises to strengthen the pelvic floor muscles that support your bladder. ? Special devices, such as: ? Biofeedback. This uses sensors to help you become aware of your body's signals. ? Electrical stimulation. This uses electrodes placed inside the body (implanted) or outside the body. These electrodes send gentle pulses of electricity to strengthen the nerves or muscles that control the bladder. ? Women may use a plastic device, called a pessary, that fits into the vagina and supports the bladder. ? Medicines, such as: ? Antibiotics to treat bladder infection. ? Antispasmodics to stop the bladder from releasing urine at the wrong time. ? Tricyclic antidepressants to relax bladder muscles. ? Injections of botulinum toxin type A directly into the bladder tissue to relax bladder muscles. ? Surgery, such as: ? A device may be implanted to help manage the nerve signals that control urination. ? An electrode may be implanted to stimulate electrical signals in the bladder. ? A procedure may be done to change the shape of the bladder. This is done only in very severe cases. Follow these instructions at home: Eating and drinking ? Make diet or lifestyle changes recommended by your health care provider. These may include: ? Drinking fluids throughout the day and not only with meals. ? Cutting down on caffeine or alcohol. ? Eating a healthy and balanced diet to prevent constipation. This may include: ? Choosing foods that are high in fiber, such as beans, whole grains, and fresh fruits and vegetables. ? Limiting foods that are high in fat and processed sugars, such as fried and sweet foods. Lifestyle ? Lose weight if needed. ? Do not use any products that contain nicotine or tobacco. These include cigarettes, chewing tobacco, and vaping devices, such as e-cigarettes. If you need help quitting, ask your health care provider. General instructions ? Take iquo-cnw-hnsxbdx and prescription medicines only as told by your health care provider. ? If you were prescribed an antibiotic medicine, take it as told by your health care provider. Do not stop taking the antibiotic even if you start to feel better. ? Use any implants or pessary as told by your health care provider. ? If needed, wear pads to absorb urine leakage. ? Keep a log to track how much and when you drink, and when you need to urinate. This will help your health care provider monitor yo (more content not included)... Normal [facility] Urology Office/Clinic Noteon 05-15-2023 Urology Office/Clinic Note Chief Complaint Pt is here for second SPT change HPI Staff Patsy is a 78 y.o. male here for PO SPT placement. Previous Dx: asymptomatic microscopic hematuria, bilateral hydronephrosis, BPH w/ urinary obstruction, dysuria, family history of prostate cancer, glycosuria, history of kidney stones, hydroureter, hydroureteronephrosis, incomplete bladder emptying, microhematuria, nocturia, OAB, noncompliant bladder, prostate cancer, ureteral stricture, UTI. S/P SPT placed on 03/05/23, cysto/RT stent removal/placement done on 03/05/23, TURP done on 08/27/22, UroLift done on 05/05/22. Pt states Dr. Feliciano did the initial SPT change on 04/15/23. This will be the second SPT change. Dysuria: denies Incomplete bladder emptying: Has Bond Hematuria: denies Leaking: denies History of Present Illness Tests reviewed: External records including operative notes, BMP levels. I have reviewed the previous health record information and history for this patient from Dr. Cortez and external providers I have reviewed and verified the staff HPI to be accurate for this encounter. There have been no associated fever, chills, flank pain, or blood in the urine. Denies any urinary infections since last encounter. Review of Systems PHQ Score Initial Depression Screen Score: 0 ROS - Provider Constitutional: denies weight loss, denies hot flashes. Eyes: denies eye problems. Gastrointestinal: denies nausea, denies vomiting. Cardiovascular: denies chest pain or angina. Integumentary: no dryness Musculoskeletal: denies musculoskeletal symptoms. ENMT: denies otolaryngeal symptoms. Respiratory: no shortness of breath. Heme/Lymph: denies easy bleeding tendency, denies easy bruising tendency. Psychiatric: no confusion, no anxiety. Genitourinary: See HPI. Physical Exam Vitals & Measurements HT: 67 in HT: 171 cm WT: 94 kg WT: 206.8 lb BMI: 32.15 General Appearance: alert, no distress, well nourished, well developed male. Ambulates with cane Genitourinary: normal scrotum, normal testes, normal meatus. 16Fr suprapubic catheter in place to leg bag, clear yellow urine. Minimal granulation tissue around right of SP tube. Well-healing surgical incision Flank Pain: none. Bladder: nonpalpable. Procedure The patient denies seeing blood in the urine, fever, or chills. There have been no complications since the last tube change. The SP tube 16 fr 2-way bond catheter has been changed today in the office without difficulty, and the tube irrigated to ensure proper placement. 10cc in balloon. Bond catheter is placed to leg bag drainage. The patient should increase fluid intake to keep the urine clear. He should go to the ER for significant bleeding, blocked catheter, or fever or chills. Assessment/Plan 89year old male with complex urologic history s/p urolift, TURP, incidental finding of fav intermediate risk prostate cancer on active surveillance, now found to have right distal ureteral stricture, non-compliant small bladder with BL VUR, acute on chronic renal failure. He was referred to Dr. Daisy Feliciano for further evaluation regarding recommendations of SP tube, stent, definitive care which is more invasive. He is s/p right stent placement and SP tube. Here to reestablish local care continue routine exchanges. He declined invasive treatment at this time. Hx of multiple myeloma s/p tx, currently in remission. Sees Dr. Huddleston - no contraindications to proceed with any treatments or interventions THERESA N/A, pt inactive (1). Pt is here with his today. Follows with nephrology 1. Hydroureteronephrosis (N13.30: Unspecified hydronephrosis) 10/14/22 - BUN 25. Crea 1.54. eGFR 44. (bond in place) Cr up to 2 without bond 12/08/22 - Cr 1.78. eGFR 37. BUN 30. K 5.0. (with bond) 12/17/22 - Cr 1.84. eGFR 37. BUN 22. K 5.3. (with stent) 04/23/23 - Cr 1.80. eGFR 38. BUN 24. K 4.6 (with stent and SPT) 05/07/23 - Cr 1.85. eGFR 36.821. BUN 21. K 4.4 (with stent and SPT) ANA 09/23/22 - Mild-mod bilateral hydroureteronephrosis. No mass or stones. CT AP wo con 10/02/22 - Mild-mod bilateral hydronephrosis and hydroureter without obstructing stone or mass. Non-obstructing calculi left kidney measuring 7 mm. Post Bond Renal US 10/14/22 neg for hydro. CMP 10/14/22 BUN 25, crea 1.54, eGFR 44. (From Cr 2 prior). ANA 10/30/22 - Mild right pelvocaliectasis, neg for hydro. Pt refused bond/CIC at that time. Renal US 11/17/22 [facility] [place] - R-sided hydronephrosis and proximal hydroureter. Findings have progressed since prior study. Cr 1.87/ eGFR 36.6 Cath placed 11/21/2022 ANA 12/01/22 - Right hydronephrosis, grossly similar to the prior study despite bond in place. S/P cysto/RG/ureteroscopy/ stent placement/RT ureteral dilation and stent placement 12/10/22. ANA 12/17/22 - Interval resolution of the right sided hydronephrosis since the prior US study. Referred to [facility] urologist for right distal stricture, small capacity bladder with BL VUR 12/19/22. Dr. Daisy Feliciano evaluation (more content not included)... Normal [facility] Comment on above: Result Comment: Elec tronically Signed By: Diego RICKS, Vesna Taylor\.br\Date and Time Signed: 05/15/23 16:38 EDT\.br\Electronically Co-Signed By: Cornelia De Leon\.br\Date and Time Co-Signed: 05/15/23 16:17 EDT Complete Blood Count Auto Di ffon 05-07-2023 Basophils (Bld) [#/Vol] 0.0 10*3/uL Normal 0.0-0.2 [facility] Comment on above: Result Comment: PERF ORMED BY:[address] [place], [place] [phone] MEDICAL DIRECTORMEAGAN HADRING M.D. Performed By: #### C MP, CBC ####[address] [place] [address] [facility] Basophils/100 WBC (Bld) 0.3 % Normal . [facility] Comment on above: Performed By: #### C MP, CBC ####[facility] [address] [place] [address] [facility] Eosinophils (Bld) [#/Vol] 0.3 10*3/uL Normal 0.0-0.45 [facility] Comment on above: Performed By: #### C MP, CBC ####[facility] [address] [place] [address] [facility] Eosinophils/100 WBC (Bld) 5.0 % Normal . [facility] Comment on above: Performed By: #### C MP, CBC ####[id number] [facility] Erythrocyte distribution width (RBC) [Ratio] 18.0 % High 12.0-14.8 [facility] Comment on above: Performed By: #### C MP, CBC ####[id number] [facility] Hematocrit (Bld) [Volume fraction] 30.0 % Low 38.8-50.0 [facility] Comment on above: Performed By: #### C MP, CBC ####[address] Hemoglobin (Bld) [Mass/Vol] 10.1 g/dL Low 13.0-17.0 [facility] Comment on above: Performed By: #### C MP, CBC ####[address] Lymphocytes (Bld) [#/Vol] 1.2 10*3/uL Normal 1.00-4.8 [facility] Comment on above: Performed By: #### C MP, CBC ####[id number] [facility] Lymphocytes/100 WBC (Bld) 17.3 % Normal . [facility] Comment on above: Performed By: #### C MP, CBC ####[id number] [facility] MCH (RBC) [Entitic mass] 36.4 pg High 27.5-35.2 [facility] Comment on above: Performed By: #### C MP, CBC ####[id number] [facility] MCV (RBC) [Entitic vol] 108.5 fL High 83.5-101 [facility] Comment on above: Performed By: #### C MP, CBC ####[id number] [facility] Mean Corpuscular HGB Conc 33.5 g/dL Normal 32.5-35.6 [facility] Comment on above: Performed By: #### C MP, CBC ####[facility] [place] [address] [facility] Monocytes (Bld) [#/Vol] 0.4 10*3/uL Normal 0.0-0.8 [facility] Comment on above: Performed By: #### C MP, CBC ####[address] [address] [facility] Monocytes/100 WBC (Bld) 5.7 % Normal . [facility] Comment on above: Performed By: #### C MP, CBC ####[address] [address] [facility] Neutrophils (Bld) [#/Vol] 5.0 10*3/uL Normal 1.8-7.7 [facility] Comment on above: Performed By: #### C MP, CBC ####[address] [address] [facility] Neutrophils/100 WBC (Bld) 71.7 % Normal . [facility] Comment on above: Performed By: #### C MP, CBC ####[address] [address] [facility] NRBC% 0.1 /100{WBC} Normal 0-0.5 [facility] Comment on above: Performed By: #### C MP, CBC ####[address] [address] [facility] Platelet mean volume (Bld) [Entitic vol] 9.1 fL Normal 6.6-10.1 [facility] Comment on above: Performed By: #### C MP, CBC ####[address] [address] [facility] Platelets (Bld) [#/Vol] 149 10*3/uL Low 150-450 [facility] Comment on above: Performed By: #### C MP, CBC ####[address] [address] [facility] RBC (Bld) [#/Vol] 2.77 10*6/uL Low 3.90-5.60 [facility] Comment on above: Performed By: #### C MP, CBC ####[address] [place] [address] [facility] WBC (Bld) [#/Vol] 7.0 10*3/uL Normal 4.1-10.5 [facility] Comment on above: Performed By: #### C MP, CBC ####[address] [address] [facility] Comprehensive Metabolic Pane mana 05-07-2023 Albumin [Mass/Vol] 4.0 g/dL Normal 3.5-5.7 [facility] Comment on above: Performed By: #### C MP, CBC ####[address] [address] [facility] Albumin/Globulin [Mass ratio] 1.7 {ratio} Normal [facility] Comment on above: Performed By: #### C MP, CBC ####[address] [address] [facility] ALP [Catalytic activity/Vol] 101 U/L Normal 34-104 [facility] Comment on above: Performed By: #### C MP, CBC ####[address] [address] [facility] ALT [Catalytic activity/Vol] 19 U/L Normal 7-52 [facility] Comment on above: Performed By: #### C MP, CBC ####[address] [address] [facility] Anion gap [Moles/Vol] 10.7 mmol/L Normal 6.0-15.0 [facility] Comment on above: Performed By: #### C MP, CBC ####[address] [address] [facility] AST [Catalytic activity/Vol] 19 U/L Normal 13-39 [facility] Comment on above: Performed By: #### C MP, CBC ####[address] [address] [facility] Bilirubin [Mass/Vol] 0.5 mg/dL Normal 0.3-1.0 [facility] Comment on above: Performed By: #### C MP, CBC ####[address] [address] [facility] Calcium [Mass/Vol] 9.2 mg/dL Normal 8.6-10.3 [facility] Comment on above: Performed By: #### C MP, CBC ####[address] [address] [facility] Chloride [Moles/Vol] 110 mmol/L High 98-107 [facility] Comment on above: Performed By: #### C MP, CBC ####[address] [address] [facility] CO2 [Moles/Vol] 23.7 mmol/L Normal 21.0-31.0 [facility] Comment on above: Performed By: #### C MP, CBC ####[address] [address] [facility] Creatinine [Mass/Vol] 1.85 mg/dL High 0.70-1.30 [facility] Comment on above: Performed By: #### C MP, CBC ####[address] [address] [facility] Creatinine Clr Calc Pharmacy 40.74 [facility] Comment on above: Result Comment: PERF ORMED BY:[address] [place], [place] [phone] MEDICAL ANYA HARDING M.D. Performed By: #### C MP, CBC ####[address] [address] [facility] GFR/1.73 sq M.predicted MDRD (S/P/Bld) [Vol rate/Area] 36.821 mL/min/{1.73_m2} [facility] Comment on above: Performed By: #### C MP, CBC ####[address] [address] [facility] Globulin (S) [Mass/Vol] 2.4 g/dL [facility] Comment on above: Performed By: #### C MP, CBC ####[address] [place] [address] [facility] Glucose [Mass/Vol] 84 mg/dL Normal 70-100 [facility] Comment on above: Result Comment: Concrete Glucose Reference Range is dependent on time and content of last meal. Glucose of more than 200 mg/dL in a nonstressed, ambulatory subject supports the diagnosis of Diabetes Mellitus. ADA recommended reference range Performed By: #### C MP, CBC ####[id number] [facility] Potassium [Moles/Vol] 4.4 mmol/L Normal 3.5-5.1 [facility] Comment on above: Performed By: #### C MP, CBC ####[address] Protein [Mass/Vol] 6.4 g/dL Normal 6.4-8.9 [facility] Comment on above: Performed By: #### C MP, CBC ####[id number] [facility] Sodium [Moles/Vol] 140 mmol/L Normal 136-145 [facility] Comment on above: Performed By: #### C MP, CBC ####[id number] [facility] Urea nitrogen [Mass/Vol] 21 mg/dL Normal 7-25 [facility] Comment on above: Performed By: #### C MP, CBC ####[id number] [facility] Complete Blood Count Auto Di ffon 04-23-2023 Basophils (Bld) [#/Vol] 0.0 10*3/uL Normal 0.0-0.2 [facility] Comment on above: Result Comment: PERF ORMED BY:[address] [place], [place] [phone] MEDICAL DIRECTORMEAGAN HARDING M.D. Performed By: #### C BC, CMP ####[id number] [facility] Basophils/100 WBC (Bld) 0.2 % Normal . [facility] Comment on above: Performed By: #### C BC, CMP ####[address] Eosinophils (Bld) [#/Vol] 0.4 10*3/uL Normal 0.0-0.45 [facility] Comment on above: Performed By: #### C BC, CMP ####[address] Eosinophils/100 WBC (Bld) 5.8 % Normal . [facility] Comment on above: Performed By: #### C BC, CMP ####[address] Erythrocyte distribution width (RBC) [Ratio] 17.5 % High 12.0-14.8 [facility] Comment on above: Performed By: #### C BC, CMP ####[address] Hematocrit (Bld) [Volume fraction] 28.5 % Low 38.8-50.0 [facility] Comment on above: Performed By: #### C BC, CMP ####[address] Hemoglobin (Bld) [Mass/Vol] 9.6 g/dL Low 13.0-17.0 [facility] Comment on above: Performed By: #### C BC, CMP ####[address] Lymphocytes (Bld) [#/Vol] 1.1 10*3/uL Normal 1.00-4.8 [facility] Comment on above: Performed By: #### C BC, CMP ####[address] Lymphocytes/100 WBC (Bld) 17.3 % Normal . [facility] Comment on above: Performed By: #### C BC, CMP ####[address] MCH (RBC) [Entitic mass] 36.5 pg High 27.5-35.2 [facility] Comment on above: Performed By: #### C AYDEE, CMP ####[address] MCV (RBC) [Entitic vol] 108.6 fL High 83.5-101 [facility] Comment on above: Performed By: #### C AYDEE, CMP ####[address] Mean Corpuscular HGB Conc 33.6 g/dL Normal 32.5-35.6 [facility] Comment on above: Performed By: #### C AYDEE, CMP ####[address] Monocytes (Bld) [#/Vol] 0.4 10*3/uL Normal 0.0-0.8 [facility] Comment on above: Performed By: #### C AYDEE, CMP ####[address] Monocytes/100 WBC (Bld) 5.7 % Normal . [facility] Comment on above: Performed By: #### C AYDEE, CMP ####[address] Neutrophils (Bld) [#/Vol] 4.5 10*3/uL Normal 1.8-7.7 [facility] Comment on above: Performed By: #### C AYDEE, CMP ####[id number] [facility] Neutrophils/100 WBC (Bld) 71.0 % Normal . [facility] Comment on above: Performed By: #### C BC, CMP ####[id number] [facility] NRBC% 0.1 /100{WBC} Normal 0-0.5 [facility] Comment on above: Performed By: #### C BC, CMP ####[address] Platelet mean volume (Bld) [Entitic vol] 8.0 fL Normal 6.6-10.1 [facility] Comment on above: Performed By: #### C AYDEE, CMP ####[id number] [facility] Platelets (Bld) [#/Vol] 145 10*3/uL Low 150-450 [facility] Comment on above: Performed By: #### C BC, CMP ####[address] RBC (Bld) [#/Vol] 2.62 10*6/uL Low 3.90-5.60 [facility] Comment on above: Performed By: #### C AYDEE, CMP ####[id number] [facility] WBC (Bld) [#/Vol] 6.3 10*3/uL Normal 4.1-10.5 [facility] Comment on above: Performed By: #### C AYDEE, CMP ####[address] Comprehensive Metabolic Pane mana 04-23-2023 Albumin [Mass/Vol] 3.8 g/dL Normal 3.5-5.7 [facility] Comment on above: Performed By: #### C AYDEE, CMP ####[id number] [facility] Albumin/Globulin [Mass ratio] 1.7 {ratio} Normal [facility] Comment on above: Performed By: #### C AYDEE, CMP ####[id number] [facility] ALP [Catalytic activity/Vol] 93 U/L Normal 34-104 [facility] Comment on above: Performed By: #### C BC, CMP ####[id number] [facility] ALT [Catalytic activity/Vol] 16 U/L Normal 7-52 [facility] Comment on above: Performed By: #### C BC, CMP ####[id number] [facility] Anion gap [Moles/Vol] 8.0 mmol/L Normal 6.0-15.0 [facility] Comment on above: Performed By: #### C BC, CMP ####[address] [place] [address] [facility] AST [Catalytic activity/Vol] 17 U/L Normal 13-39 [facility] Comment on above: Performed By: #### C BC, CMP ####[address] [place] [address] [facility] Bilirubin [Mass/Vol] 0.4 mg/dL Normal 0.3-1.0 [facility] Comment on above: Performed By: #### C BC, CMP ####[address] [address] [facility] Calcium [Mass/Vol] 8.7 mg/dL Normal 8.6-10.3 [facility] Comment on above: Performed By: #### C BC, CMP ####[address] [address] [facility] Chloride [Moles/Vol] 107 mmol/L Normal 98-107 [facility] Comment on above: Performed By: #### C BC, CMP ####[address] [address] [facility] CO2 [Moles/Vol] 26.6 mmol/L Normal 21.0-31.0 [facility] Comment on above: Performed By: #### C BC, CMP ####[address] [address] [facility] Creatinine [Mass/Vol] 1.80 mg/dL High 0.70-1.30 [facility] Comment on above: Performed By: #### C BC, CMP ####[address] [address] [place] Creatinine Clr Calc Pharmacy 41.87 Normal [facility] Comment on above: Result Comment: PERF ORMED BY:[address] [place], [place] [phone] MEDICAL DIRECTORMEAGAN HARDING M.D. Performed By: #### C BC, CMP ####[facility] [place] [address] [facility] GFR/1.73 sq M.predicted MDRD (S/P/Bld) [Vol rate/Area] 38.052 mL/min/{1.73_m2} [facility] Comment on above: Performed By: #### C BC, CMP ####[facility] [place] [address] [facility] Globulin (S) [Mass/Vol] 2.2 g/dL [facility] Comment on above: Performed By: #### C BC, CMP ####[address] [place] [address] [facility] Glucose [Mass/Vol] 245 mg/dL High 70-100 [facility] Comment on above: Result Comment: [facility] Glucose Reference Range is dependent on time and content of last meal. Glucose of more than 200 mg/dL in a nonstressed, ambulatory subject supports the diagnosis of Diabetes Mellitus. ADA recommended reference range Performed By: #### C BC, CMP ####[address] [place] [address] [facility] Potassium [Moles/Vol] 4.6 mmol/L Normal 3.5-5.1 [facility] Comment on above: Performed By: #### C BC, CMP ####[address] [address] [facility] Protein [Mass/Vol] 6.0 g/dL Low 6.4-8.9 [facility] Comment on above: Performed By: #### C BC, CMP ####[facility] [place] [address] [facility] Sodium [Moles/Vol] 137 mmol/L Normal 136-145 [facility] Comment on above: Performed By: #### C BC, CMP ####[address] [place] [address] [facility] Urea nitrogen [Mass/Vol] 24 mg/dL Normal 7-25 [facility] Comment on above: Performed By: #### C BC, CMP ####[address] [place] [address] [facility] CNOVon 04-15-2023 CNOV Office Visit (URFMOB ) PATSY MILLS ([id number]) 1945 M Date Time Provider Department 04/15/23 4:00 PM DAISY MENDOZA URFMOB During your visit today, we recorded the following information about you: Pulse Blood pressure 82/minute 166/75 Daisy Mendoza MD 04/15/2023 5:20 PM Signed HPI: This is a 78 yo M w multiple myeloma sp bM txp, urosepsis and uti sp urolift and TURP with incidental CAP on TURP, high pressure low capacity bladder w VUR, R ureteral stricture He is now sp open R ureteral stent placement and open SPT placement March 05 Here for initial SPT exchange Reports bladder spasms intermittently Had weakness for a week after surgery This has resolved No fever or chills PAST MEDICAL HISTORY Diagnosis Date Anemia BPH (benign prostatic hyperplasia) Diabetes (HCC) Hypertension Kidney stones Multiple myeloma (HCC) OAB (overactive bladder) Prostate CA (HCC) Rheumatoid arthritis (HCC) PAST SURGICAL HISTORY Procedure Laterality Date BONE MARROW TRANSPLANT, ALLOGENEIC CYSTOSCOPY 11/2022 ESWL 2008 TRANSURETHRAL ELEC-SURG PROSTATECTOM 08/2022 UROLIFT PROSTATE PROCEDURE 04/2022 UVULECTOMY EXCISION OF UVULA Social History Tobacco Use Smoking status: Former Packs/day: 2 Types: Cigarettes Quit date: 1980 Years since quittin.6 Smokeless tobacco: Never Substance Use Topics Alcohol use: Yes Comment: none since 1990 leydi Drug use: Not Currently Current Outpatient Medications on File Prior to Visit Medication Sig aspirin 81 mg chewable tablet mg tab(s), Chewed, Daily, Refills(s) 0 atorvastatin (LIPITOR) 20 mg tablet Take by mouth. famotidine (PEPCID) 20 mg tablet Take 20 mg by mouth. metFORMIN ER (GLUCOPHAGE XR) 500 mg 24 hr tablet oxybutynin ER (DITROPAN XL) 10 mg 24 hr tablet MEN'S MULTI-VITAMIN ORAL Multi Vitamin Mens Active Cholecalciferol, Vitamin D3, (D3-2000) 50 mcg (2,000 unit) cap Take by mouth. Lactobacillus acidophilus (PROBIOTIC) 10 billion cell cap probiotic as directed Active lisinopril (ZESTRIL) 10 mg tablet Take by mouth q 24 HR. LANTUS SOLOSTAR U-100 INSULIN 100 unit/mL (3 mL) insulin lispro (HUMALOG KWIKPEN) 100 unit/mL pen Inject 8 Units subcutaneously three times daily before meals. Plus sliding scale. docusate sodium (STOOL SOFTENER) 100 mg capsule Take 100 mg by mouth twice daily as needed for constipation. phosphorus (PHOSPHOROUS) 250 mg tablet Take 1 tablet by mouth three times daily. No current facility-administered medications on file prior to visit. ROS: Constitutional: negative Gastrointestinal: negative PHYSICAL EXAM: BP 166/75 Pulse 82 GENERAL: Wnl nutrition, no deformities, healthy appearing ABDOMEN: Soft, nontender, nondistended, no masses. GENITOURINARY: MALE EXAM: spt exchanged without issue The existing suprapubic tube was used to fill the bladder. The balloon was deflated and the tube removed. A new 16F bond was inserted without difficult via the SP tract and the balloon inflated with 10mls of sterile water once position within the bladder was confirmed with return of fluid. The patient can have subsequent exchanges done by a registered nurse. DATA/OR LABS TO BE REVIEWED: (Simple=1 data point; Complex= 2 or more) No results found for: PSA Creatinine (mg/dL) Date Value 02/23/2023 1.72 No results found for: TESTOST A/P: 78 M w small capacity high pressure bladder, R ureteral stx sp SPT and R ureteral stent Here for first exchange He will fllow up locally for exchanges Monthly SPT and [id number] stent exchanges Monitoring of BMP He will let me know if any issues Daisy Mendoza MD Allergies As of Date: 04/15/2023 Noted Allergy Reaction MIRABEGRON 06/27/2022 6 - Diarrhea 8 - GI Upset GABAPENTIN 08/20/2021 2 - Rash Date Reviewed: 04/15/2023 Reviewed by: Manuel Oropeza MA - Fully Assessed Reason for Visit: Follow Up [171] Cmt: SPT exchange, concerns with infection Primary Visit Diagnosis:Neurogenic bladder [N31.9] Other Visit Diagnoses: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 - famotidine (PEPCID) 20 mg tablet Take 20 mg by mouth. - metFORMIN ER (GLUCOPHAGE XR) 500 mg 24 hr tablet - oxybutynin ER (DITROPAN XL) 10 mg 24 hr tablet - MEN'S MULTI-VITAMIN ORAL Multi Vitamin Mens Active - Cholecalciferol, Vitamin D3, (D3-2000) 50 mcg (2,000 unit) cap Take by mouth. - Lactobacillus acidophilus (PROBIOTIC) 10 billion cell cap probiotic as directed Active - lisinopril (ZESTRIL) 10 mg tablet Take by mouth q 24 HR. - LANTUS SOLOSTAR U-100 INSULIN 100 unit/mL (3 mL) - insulin li (more content not included)... Normal [facility] Complete Blood Count Auto Di ffon 04-09-2023 Basophils (Bld) [#/Vol] 0.0 10*3/uL Normal 0.0-0.2 [facility] Comment on above: Result Comment: PERF ORMED BY:[facility] [place], [place] [phone] MEDICAL DIRECTORMEAGAN HARDING M.D. Performed By: #### C MP, CBC ####[facility] [id number] [place] [address] [facility] Basophils/100 WBC (Bld) 0.4 % Normal . [facility] Comment on above: Performed By: #### C MP, CBC ####[facility] [place] [address] [facility] Eosinophils (Bld) [#/Vol] 0.7 10*3/uL High 0.0-0.45 [facility] Comment on above: Performed By: #### C MP, CBC ####[address] Eosinophils/100 WBC (Bld) 10.3 % Normal . [facility] Comment on above: Performed By: #### C MP, CBC ####[address] Erythrocyte distribution width (RBC) [Ratio] 17.5 % High 12.0-14.8 [facility] Comment on above: Performed By: #### C MP, CBC ####[address] Hematocrit (Bld) [Volume fraction] 29.2 % Low 38.8-50.0 [facility] Comment on above: Performed By: #### C MP, CBC ####[address] Hemoglobin (Bld) [Mass/Vol] 9.7 g/dL Low 13.0-17.0 [facility] Comment on above: Performed By: #### C MP, CBC ####[address] Lymphocytes (Bld) [#/Vol] 1.2 10*3/uL Normal 1.00-4.8 [facility] Comment on above: Performed By: #### C MP, CBC ####[place] [id number] [facility] Lymphocytes/100 WBC (Bld) 17.4 % Normal . [facility] Comment on above: Performed By: #### C MP, CBC ####[place] [id number] [facility] MCH (RBC) [Entitic mass] 36.2 pg High 27.5-35.2 [facility] Comment on above: Performed By: #### C MP, CBC ####[place] [id number] [facility] MCV (RBC) [Entitic vol] 109.0 fL High 83.5-101 [facility] Comment on above: Performed By: #### C MP, CBC ####[address] [address] [facility] Mean Corpuscular HGB Conc 33.2 g/dL Normal 32.5-35.6 [facility] Comment on above: Performed By: #### C MP, CBC ####[address] [address] [facility] Monocytes (Bld) [#/Vol] 0.4 10*3/uL Normal 0.0-0.8 [facility] Comment on above: Performed By: #### C MP, CBC ####[place] [id number] [facility] Monocytes/100 WBC (Bld) 6.7 % Normal . [facility] Comment on above: Performed By: #### C MP, CBC ####[place] [id number] [facility] Neutrophils (Bld) [#/Vol] 4.4 10*3/uL Normal 1.8-7.7 [facility] Comment on above: Performed By: #### C MP, CBC ####[place] [id number] [facility] Neutrophils/100 WBC (Bld) 65.2 % Normal . [facility] Comment on above: Performed By: #### C MP, CBC ####[address] [address] [facility] NRBC% 0.1 /100{WBC} Normal 0-0.5 [facility] Comment on above: Performed By: #### C MP, CBC ####[place] [id number] [facility] Platelet mean volume (Bld) [Entitic vol] 8.4 fL Normal 6.6-10.1 [facility] Comment on above: Performed By: #### C MP, CBC ####[address] [address] [facility] Platelets (Bld) [#/Vol] 155 10*3/uL Normal 150-450 [facility] Comment on above: Performed By: #### C MP, CBC ####[address] [address] [facility] RBC (Bld) [#/Vol] 2.68 10*6/uL Low 3.90-5.60 [facility] Comment on above: Performed By: #### C MP, CBC ####[place] [id number] [facility] WBC (Bld) [#/Vol] 6.7 10*3/uL Normal 4.1-10.5 [facility] Comment on above: Performed By: #### C MP, CBC ####[place] [id number] [facility] Comprehensive Metabolic Pane mana 04-09-2023 Albumin [Mass/Vol] 3.9 g/dL Normal 3.5-5.7 [facility] Comment on above: Performed By: #### C MP, CBC ####[place] [id number] [facility] Albumin/Globulin [Mass ratio] 1.5 {ratio} Normal [facility] Comment on above: Performed By: #### C MP, CBC ####[place] [id number] [facility] ALP [Catalytic activity/Vol] 107 U/L High 34-104 [facility] Comment on above: Performed By: #### C MP, CBC ####[place] [id number] [facility] ALT [Catalytic activity/Vol] 17 U/L Normal 7-52 [facility] Comment on above: Performed By: #### C MP, CBC ####[place] [id number] [facility] Anion gap [Moles/Vol] 10.6 mmol/L Normal 6.0-15.0 [facility] Comment on above: Performed By: #### C MP, CBC ####[place] [id number] [facility] AST [Catalytic activity/Vol] 19 U/L Normal 13-39 [facility] Comment on above: Performed By: #### C MP, CBC ####[facility] [place] [address] [facility] Bilirubin [Mass/Vol] 0.3 mg/dL Normal 0.3-1.0 [facility] Comment on above: Performed By: #### C MP, CBC ####[place] [address] [place] [address] [facility] Calcium [Mass/Vol] 8.8 mg/dL Normal 8.6-10.3 [facility] Comment on above: Performed By: #### C MP, CBC ####[place] [address] [place] [address] [facility] Chloride [Moles/Vol] 109 mmol/L High 98-107 [facility] Comment on above: Performed By: #### C MP, CBC ####[address] [address] [facility] CO2 [Moles/Vol] 24.0 mmol/L Normal 21.0-31.0 [facility] Comment on above: Performed By: #### C MP, CBC ####[address] [address] [place] Creatinine [Mass/Vol] 1.90 mg/dL High 0.70-1.30 [facility] Comment on above: Performed By: #### C MP, CBC ####[address] [address] [place] Creatinine Clr Calc Pharmacy 39.67 [facility] Comment on above: Result Comment: PERF ORMED BY:[address] [place], [place] [phone] MEDICAL ANYA HARDING M.D. Performed By: #### C MP, CBC ####[address] [address] [place] GFR/1.73 sq M.predicted MDRD (S/P/Bld) [Vol rate/Area] 35.661 mL/min/{1.73_m2} [facility] Comment on above: Performed By: #### C MP, CBC ####[facility] [place] [address] [facility] Globulin (S) [Mass/Vol] 2.6 g/dL Normal [facility] Comment on above: Performed By: #### C MP, CBC ####[place] [address] [place] [address] [facility] Glucose [Mass/Vol] 111 mg/dL High 70-100 [facility] Comment on above: Result Comment: Concrete Glucose Reference Range is dependent on time and content of last meal. Glucose of more than 200 mg/dL in a nonstressed, ambulatory subject supports the diagnosis of Diabetes Mellitus. ADA recommended reference range Performed By: #### C MP, CBC ####[place] [address] [place] [id number] [facility] Potassium [Moles/Vol] 4.6 mmol/L Normal 3.5-5.1 [facility] Comment on above: Performed By: #### C MP, CBC ####[place] [id number] [facility] Protein [Mass/Vol] 6.5 g/dL Normal 6.4-8.9 [facility] Comment on above: Performed By: #### C MP, CBC ####[place] [id number] [facility] Sodium [Moles/Vol] 139 mmol/L Normal 136-145 [facility] Comment on above: Performed By: #### C MP, CBC ####[place] [id number] [facility] Urea nitrogen [Mass/Vol] 28 mg/dL High 7-25 [facility] Comment on above: Performed By: #### C MP, CBC ####[place] [id number] [facility] Complete Blood Count Auto Di ffon 03-26-2023 Basophils (Bld) [#/Vol] 0.0 10*3/uL Normal 0.0-0.2 [facility] Comment on above: Result Comment: PERF ORMED BY:[address] [place] [phone] MEDICAL DIRECTORMEAGAN HARDING M.D. Performed By: #### C MP, CBC ####[address] Basophils/100 WBC (Bld) 0.3 % Normal . [facility] Comment on above: Performed By: #### C MP, CBC ####[address] Eosinophils (Bld) [#/Vol] 1.1 10*3/uL High 0.0-0.45 [facility] Comment on above: Performed By: #### C MP, CBC ####[address] Eosinophils/100 WBC (Bld) 17.0 % Normal . [facility] Comment on above: Performed By: #### C MP, CBC ####[address] Erythrocyte distribution width (RBC) [Ratio] 16.6 % High 12.0-14.8 [facility] Comment on above: Performed By: #### C MP, CBC ####[address] Hematocrit (Bld) [Volume fraction] 27.8 % Low 38.8-50.0 [facility] Comment on above: Performed By: #### C MP, CBC ####[address] Hemoglobin (Bld) [Mass/Vol] 9.3 g/dL Low 13.0-17.0 [facility] Comment on above: Performed By: #### C MP, CBC ####[address] Lymphocytes (Bld) [#/Vol] 1.1 10*3/uL Normal 1.00-4.8 [facility] Comment on above: Performed By: #### C MP, CBC ####[address] [place] [address] [place] Lymphocytes/100 WBC (Bld) 16.4 % Normal . [facility] Comment on above: Performed By: #### C MP, CBC ####[address] MCH (RBC) [Entitic mass] 36.0 pg High 27.5-35.2 [facility] Comment on above: Performed By: #### C MP, CBC ####[address] MCV (RBC) [Entitic vol] 107.7 fL High 83.5-101 [facility] Comment on above: Performed By: #### C MP, CBC ####[address] Mean Corpuscular HGB Conc 33.5 g/dL Normal 32.5-35.6 [facility] Comment on above: Performed By: #### C MP, CBC ####[address] Monocytes (Bld) [#/Vol] 0.4 10*3/uL Normal 0.0-0.8 [facility] Comment on above: Performed By: #### C MP, CBC ####[address] Monocytes/100 WBC (Bld) 5.9 % Normal . [facility] Comment on above: Performed By: #### C MP, CBC ####[address] Neutrophils (Bld) [#/Vol] 4.0 10*3/uL Normal 1.8-7.7 [facility] Comment on above: Performed By: #### C MP, CBC ####[address] Neutrophils/100 WBC (Bld) 60.4 % Normal . [facility] Comment on above: Performed By: #### C MP, CBC ####[address] NRBC% 0.1 /100{WBC} Normal 0-0.5 [facility] Comment on above: Performed By: #### C MP, CBC ####[place] [id number] [facility] Platelet mean volume (Bld) [Entitic vol] 9.0 fL Normal 6.6-10.1 [facility] Comment on above: Performed By: #### C MP, CBC ####[place] [id number] [facility] Platelets (Bld) [#/Vol] 139 10*3/uL Low 150-450 [facility] Comment on above: Performed By: #### C MP, CBC ####[address] RBC (Bld) [#/Vol] 2.58 10*6/uL Low 3.90-5.60 [facility] Comment on above: Performed By: #### C MP, CBC ####[place] [id number] [facility] WBC (Bld) [#/Vol] 6.6 10*3/uL Normal 4.1-10.5 [facility] Comment on above: Performed By: #### C MP, CBC ####[place] [id number] [facility] Comprehensive Metabolic Pane mana 03-26-2023 Albumin [Mass/Vol] 3.8 g/dL Normal 3.5-5.7 [facility] Comment on above: Performed By: #### C MP, CBC ####[place] [id number] [facility] Albumin/Globulin [Mass ratio] 1.7 {ratio} Normal [facility] Comment on above: Performed By: #### C MP, CBC ####[place] [id number] [facility] ALP [Catalytic activity/Vol] 116 U/L High 34-104 [facility] Comment on above: Performed By: #### C MP, CBC ####[place] [address] [place] [address] [facility] ALT [Catalytic activity/Vol] 15 U/L Normal 7-52 [facility] Comment on above: Performed By: #### C MP, CBC ####[facility] [place] [address] [facility] Anion gap [Moles/Vol] 11.6 mmol/L Normal 6.0-15.0 [facility] Comment on above: Performed By: #### C MP, CBC ####[address] [address] [facility] AST [Catalytic activity/Vol] 17 U/L Normal 13-39 [facility] Comment on above: Performed By: #### C MP, CBC ####[address] [address] [facility] Bilirubin [Mass/Vol] 0.4 mg/dL Normal 0.3-1.0 [facility] Comment on above: Performed By: #### C MP, CBC ####[address] [address] [facility] Calcium [Mass/Vol] 8.8 mg/dL Normal 8.6-10.3 [facility] Comment on above: Performed By: #### C MP, CBC ####[address] [address] [facility] Chloride [Moles/Vol] 109 mmol/L High 98-107 [facility] Comment on above: Performed By: #### C MP, CBC ####[address] [address] [facility] CO2 [Moles/Vol] 23.8 mmol/L Normal 21.0-31.0 [facility] Comment on above: Performed By: #### C MP, CBC ####[address] [address] [facility] Creatinine [Mass/Vol] 1.82 mg/dL High 0.70-1.30 [facility] Comment on above: Performed By: #### C MP, CBC ####[place] [id number] [facility] Creatinine Clr Calc Pharmacy 41.41 [facility] Comment on above: Result Comment: PERF ORMED BY:[place] [address] [place], [place] [phone] MEDICAL DIRECTORMEAGAN HARDING M.D. Performed By: #### C MP, CBC ####[place] [address] [place] [id number] [facility] GFR/1.73 sq M.predicted MDRD (S/P/Bld) [Vol rate/Area] 37.550 mL/min/{1.73_m2} [facility] Comment on above: Performed By: #### C MP, CBC ####[place] [address] [place] [id number] [facility] Globulin (S) [Mass/Vol] 2.3 g/dL [facility] Comment on above: Performed By: #### C MP, CBC ####[place] [id number] [facility] Glucose [Mass/Vol] 128 mg/dL High 70-100 [facility] Comment on above: Result Comment: [facility] Glucose Reference Range is dependent on time and content of last meal. Glucose of more than 200 mg/dL in a nonstressed, ambulatory subject supports the diagnosis of Diabetes Mellitus. ADA recommended reference range Performed By: #### C MP, CBC ####[place] [id number] [facility] Potassium [Moles/Vol] 4.4 mmol/L Normal 3.5-5.1 [facility] Comment on above: Performed By: #### C MP, CBC ####[place] [address] [place] [id number] [facility] Protein [Mass/Vol] 6.1 g/dL Low 6.4-8.9 [facility] Comment on above: Performed By: #### C MP, CBC ####[place] [id number] [facility] Sodium [Moles/Vol] 140 mmol/L Normal 136-145 [facility] Comment on above: Performed By: #### C MP, CBC ####[place] [place] [address] [facility] Urea nitrogen [Mass/Vol] 21 mg/dL Normal 7-25 [facility] Comment on above: Performed By: #### C MP, CBC ####[address] [address] [facility] Complete Blood Count Auto Di ffon 03-12-2023 Basophils (Bld) [#/Vol] 0.0 10*3/uL Normal 0.0-0.2 [facility] Comment on above: Result Comment: PERF ORMED BY:[address] [place], [place] [phone] MEDICAL DIRECTORMEAGAN HARDING M.D. Performed By: #### C BC, CMP ####[address] [address] [facility] Basophils/100 WBC (Bld) 0.5 % Normal . [facility] Comment on above: Performed By: #### C BC, CMP ####[address] [address] [facility] Eosinophils (Bld) [#/Vol] 0.3 10*3/uL Normal 0.0-0.45 [facility] Comment on above: Performed By: #### C BC, CMP ####[address] [address] [facility] Eosinophils/100 WBC (Bld) 5.6 % Normal . [facility] Comment on above: Performed By: #### C BC, CMP ####[address] [address] [facility] Erythrocyte distribution width (RBC) [Ratio] 16.6 % High 12.0-14.8 [facility] Comment on above: Performed By: #### C BC, CMP ####[address] [address] [facility] Hematocrit (Bld) [Volume fraction] 27.1 % Low 38.8-50.0 [facility] Comment on above: Performed By: #### C BC, CMP ####[address] [address] [facility] Hemoglobin (Bld) [Mass/Vol] 9.1 g/dL Low 13.0-17.0 [facility] Comment on above: Performed By: #### C BC, CMP ####[address] [address] [facility] Lymphocytes (Bld) [#/Vol] 1.0 10*3/uL Normal 1.00-4.8 [facility] Comment on above: Performed By: #### C BC, CMP ####[place] [id number] [facility] Lymphocytes/100 WBC (Bld) 16.4 % Normal . [facility] Comment on above: Performed By: #### C BC, CMP ####[address] [address] [facility] MCH (RBC) [Entitic mass] 35.8 pg High 27.5-35.2 [facility] Comment on above: Performed By: #### C BC, CMP ####[address] [address] [facility] MCV (RBC) [Entitic vol] 106.5 fL High 83.5-101 [facility] Comment on above: Performed By: #### C BC, CMP ####[address] [address] [facility] Mean Corpuscular HGB Conc 33.7 g/dL Normal 32.5-35.6 [facility] Comment on above: Performed By: #### C BC, CMP ####[address] [address] [facility] Monocytes (Bld) [#/Vol] 0.3 10*3/uL Normal 0.0-0.8 [facility] Comment on above: Performed By: #### C BC, CMP ####[place] [id number] [facility] Monocytes/100 WBC (Bld) 5.6 % Normal . [facility] Comment on above: Performed By: #### C BC, CMP ####[place] [address] [place] [address] [facility] Neutrophils (Bld) [#/Vol] 4.5 10*3/uL Normal 1.8-7.7 [facility] Comment on above: Performed By: #### C AYDEE, CMP ####[address] [place] [address] [facility] Neutrophils/100 WBC (Bld) 71.9 % Normal . [facility] Comment on above: Performed By: #### C AYDEE, CMP ####[address] [address] [facility] NRBC% 0.2 /100{WBC} Normal 0-0.5 [facility] Comment on above: Performed By: #### C AYDEE, CMP ####[address] [address] [facility] Platelet mean volume (Bld) [Entitic vol] 9.5 fL Normal 6.6-10.1 [facility] Comment on above: Performed By: #### C AYDEE, CMP ####[address] [address] [facility] Platelets (Bld) [#/Vol] 133 10*3/uL Low 150-450 [facility] Comment on above: Performed By: #### C AYDEE, CMP ####[address] [address] [facility] RBC (Bld) [#/Vol] 2.54 10*6/uL Low 3.90-5.60 [facility] Comment on above: Performed By: #### C AYDEE, CMP ####[address] [address] [facility] WBC (Bld) [#/Vol] 6.2 10*3/uL Normal 4.1-10.5 [facility] Comment on above: Performed By: #### C AYDEE, CMP ####[address] [address] [facility] Comprehensive Metabolic Pane mana 03-12-2023 Albumin [Mass/Vol] 3.6 g/dL Normal 3.5-5.7 [facility] Comment on above: Performed By: #### C BC, CMP ####[facility] [place] [address] [facility] Albumin/Globulin [Mass ratio] 1.3 {ratio} Normal [facility] Comment on above: Performed By: #### C BC, CMP ####[facility] [place] [address] [facility] ALP [Catalytic activity/Vol] 110 U/L High 34-104 [facility] Comment on above: Performed By: #### C BC, CMP ####[address] [place] [address] [facility] ALT [Catalytic activity/Vol] 42 U/L Normal 7-52 [facility] Comment on above: Performed By: #### C BC, CMP ####[address] [address] [facility] Anion gap [Moles/Vol] 9.0 mmol/L Normal 6.0-15.0 [facility] Comment on above: Performed By: #### C BC, CMP ####[address] [address] [facility] AST [Catalytic activity/Vol] 18 U/L Normal 13-39 [facility] Comment on above: Performed By: #### C BC, CMP ####[address] [address] [facility] Bilirubin [Mass/Vol] 0.4 mg/dL Normal 0.3-1.0 [facility] Comment on above: Performed By: #### C BC, CMP ####[place] [place] [address] [facility] Calcium [Mass/Vol] 8.8 mg/dL Normal 8.6-10.3 [facility] Comment on above: Performed By: #### C BC, CMP ####[facility] [place] [address] [facility] Chloride [Moles/Vol] 110 mmol/L High 98-107 [facility] Comment on above: Performed By: #### C BC, CMP ####[address] [address] [facility] CO2 [Moles/Vol] 25.1 mmol/L Normal 21.0-31.0 [facility] Comment on above: Performed By: #### C BC, CMP ####[address] [place] [address] [facility] Creatinine [Mass/Vol] 1.71 mg/dL High 0.70-1.30 [facility] Comment on above: Performed By: #### C BC, CMP ####[address] [address] [place] Creatinine Clr Calc Pharmacy 44.08 [facility] Comment on above: Result Comment: PERF ORMED BY:[address] [place], [place] [phone] MEDICAL DIRECTORMEAGAN HARDING M.D. Performed By: #### C BC, CMP ####[address] [address] [facility] GFR/1.73 sq M.predicted MDRD (S/P/Bld) [Vol rate/Area] 40.467 mL/min/{1.73_m2} [facility] Comment on above: Performed By: #### C BC, CMP ####[address] [place] [address] [facility] Globulin (S) [Mass/Vol] 2.8 g/dL [facility] Comment on above: Performed By: #### C BC, CMP ####[address] [address] [facility] Glucose [Mass/Vol] 188 mg/dL High 70-100 [facility] Comment on above: Result Comment: Concrete Glucose Reference Range is dependent on time and content of last meal. Glucose of more than 200 mg/dL in a nonstressed, ambulatory subject supports the diagnosis of Diabetes Mellitus. ADA recommended reference range Performed By: #### C BC, CMP ####[address] [address] [facility] Potassium [Moles/Vol] 4.1 mmol/L Normal 3.5-5.1 [facility] Comment on above: Performed By: #### C AYDEE, CMP ####[facility] [place] [address] [facility] Protein [Mass/Vol] 6.4 g/dL Normal 6.4-8.9 [facility] Comment on above: Performed By: #### C AYDEE, CMP ####[facility] [place] [address] [facility] Sodium [Moles/Vol] 140 mmol/L Normal 136-145 [facility] Comment on above: Performed By: #### C AYDEE, CMP ####[address] [address] [place] [address] [facility] Urea nitrogen [Mass/Vol] 25 mg/dL Normal 7-25 [facility] Comment on above: Performed By: #### C AYDEE, CMP ####[address] [address] [place] [address] [facility] ANES POSTPROC EVALon 023 ANES POSTPROC EVAL HNO ID: [id number] Author: Ramesh Ramirez I, MD Service: Anesthesiology Author Type: Anesthesiologist Type: Anesthesia Postprocedure Evaluation Filed: 03/05/2023 10:26 AM Note Text: POST ANESTHESIA EVALUATION NOTE : 1945 Procedure Summary Date: 03/05/23 Room / Location: [address] Anesthesia Start: 730 Anesthesia Stop: 947 Procedures: INSERTION CATHETER SUPRAPUBIC (Bladder) CYSTOSCOPY, INSERTION STENT URETERAL J (Right: Ureter) Diagnosis: Acquired ureteral stricture (Acquired ureteral 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.5]) Surgeons: Daisy Mendoza MD Responsible Provider: Ramesh Ramirez I, MD Anesthesia Type: general ASA Status: 3 Anesthesia Type: general Airway Type: LMA Last Vitals Vitals Value Taken Time BP 179/86 03/05/23 1015 Temp 37.7 ?C (99.9 ?F) 03/05/23 0949 Pulse 71 03/05/23 1025 Resp 20 03/05/23 1015 SpO2 98 % 03/05/23 1025 Vitals shown include unvalidated device data. Post Anesthesia Patient Status Patient Evaluation: PACU. PACU/ICU Patient Condition: stable. Anticipated Disposition: phase 2 then home. Neurological Status: aware and responsive. Pulmonary Status: breathing comfortably on supplemental oxygen Airway Control: returned to baseline unsupported. Cardiovascular Status: stable. Pain Management: clinically adequate Postoperative Hydration: acceptable. Intraoperative Events: no significant anesthesia events Post Operative Nausea/Vomiting Status: no significant post operative nausea or vomiting Recommendation: continue current plan of care. Anesthesia Observations No Documentation SIGNATURE: Ramesh Ramirez MD PATIENT NAME: Patsy Mills DATE: March 05, 2023 TIME: 10:26 AM CSN: [id number] [facility] ANES PRE-OPon 03-05-2023 ANES PRE-OP HNO ID: [id number] Author: Ramesh Ramirez I, MD Service: Anesthesiology Author Type: Anesthesiologist Type: Anesthesia Preprocedure Evaluation Filed: 03/05/2023 7:50 AM Note Text: ANESTHESIOLOGY DAY OF SURGERY NOTE : 1945 Procedure Information Date/Time: 03/05/23729 Procedures: INSERTION CATHETER SUPRAPUBIC (Bladder) CYSTOSCOPY, INSERTION STENT URETERAL J (Right: Ureter) Location: [address] / [facility] Surgeons: Daisy Mendoza MD Estimated body mass index is 31.9 kg/m? as calculated from the following: Height as of 02/11/23: 175.3 cm (5' 9 ). Weight as of 02/11/23: 98 kg (216 lb). Most recent hematocrit and potassium results: Hematocrit 29.7 02/23/2023 Potassium 3.9 02/23/2023 Relevant Problems CARDIO (+) HTN (hypertension) -RENAL (+) Stage 3 chronic kidney disease (HCC) Other (+) Rheumatoid arthritis (HCC) I - PHYSICAL EVALUATION AIRWAY Patient intubated: No. Tracheostomy tube not present Mallampati: III. TM distance: >3 FB. Neck ROM: full ROM without neurological symptoms. Mouth opening: adequate. Short neck: no. Thick neck: yes Bass present: yes Microretrognathia/Micr onagthia/Recessed Chin: Yes DENTAL Dental findings: teeth intact. II - ANESTHESIA PLAN ASA Score: 3 Anesthetic Plan: general Airway type: LMA NPO Status: adequate Beta Magdiel Monitoring Plan Monitoring plan: standard ASA. Post Procedure Analgesic Plan Postoperative analgesic plan: parenteral or oral opioids. Informed Consent Anesthetic risks, benefits, alternatives, personnel and consent discussed: yes. Patient / Responsible Alliance Party agrees to proceed: yes Patient / Surrogate agrees to blood products: blood products not planned DNR status not reviewed with patient and/or family prior to surgery. Significant changes in the patient condition since the History and Physical, not otherwise documented in primary service progress note: no. Vitals Value Taken Time BP 178/83 03/05/23655 Pulse 85 03/05/23655 Resp 18 03/05/23655 Temp 36.2 ?C (97.2 ?F) 03/05/23655 SpO2 100 % 03/05/23655 Facility-Administered Medications as of 03/05/2023 Medication Dose Route Frequency - lidocaine (PF) 10 mg/mL (1 %) 1-2 mg injection (XYLOCAINE) 0.1-0.2 mL INTRADERMAL PRN - lactated ringers iv infusion 5-30 mL/hr INTRAVENOUS CONTINUOUS - NaCl 0.9% iv flush bag 20 mL INTRAVENOUS PRN - acetaminophen 1,000 mg tab(s) (TYLENOL) 1,000 mg ORAL Pre-Op Once - promethazine 12.5 mg tab(s) (PHENERGAN) 12.5 mg ORAL Pre-Op Once - lactated ringers iv infusion 30 mL/hr INTRAVENOUS CONTINUOUS - ceFAZolin iv piggyback 2 g in D5W (iso-osmotic) 100 mL (ANCEF) 2 g INTRAVENOUS ONCE Outpatient Medications as of 03/05/2023 Medication Sig - aspirin 81 mg chewable tablet mg tab(s), Chewed, Daily, Refills(s) 0 - atorvastatin (LIPITOR) 20 mg tablet Take by mouth. - famotidine (PEPCID) 20 mg tablet Take 20 mg by mouth. - metFORMIN ER (GLUCOPHAGE XR) 500 mg 24 hr tablet - oxybutynin ER (DITROPAN XL) 10 mg 24 hr tablet - Cholecalciferol, Vitamin D3, (D3-2000) 50 mcg (2,000 unit) cap Take by mouth. I have interviewed and examined the patient. I have reviewed the medical record and/or the pre-anesthesia evaluation, pertinent labs, and test results. This contains updated information obtained within 48 hours of Surgery/Procedure. SIGNATURE: Ramesh Ramirez MD PATIENT NAME: Patsy Mills DATE: March 05, 2023 TIME: 7:14 AM CSN: [id number] [facility] NURSING PROGon 03-05-2023 NURSING PROG HNO ID: [id number] Author: Thi Jaramillo RN Service: ? Author Type: Registered Nurse Type: Nursing Progress Note Filed: 03/05/2023 11:45 AM Note Text: Patient c/o bloating. Abdomen distended but soft non-tender. Dr Yoo called to assess and clearing patient for d/c after exam Normal [facility] NURSING PROG HNO ID: [id number] Author: Thi Jaramillo RN Service: ? Author Type: Registered Nurse Type: Nursing Progress Note Filed: 03/05/2023 10:32 AM Note Text: Regular c/o urgency to void. Suprapubic catheter draining well. Dr Roberts/Jewell informed and tropsium ordered and given. [facility] OPERATIVE NOon 03-05-2023 OPERATIVE NO HNO ID: [id number] Author: Daisy Mendoza MD Service: Urology Author Type: Physician Type: Operative Report Filed: 03/05/2023 10:22 AM Note Text: OPERATIVE/PROCEDURE REPORT LOG ID: [id number] Surgery/Procedure Date: 03/05/2023 Incision/Procedure Start Time: 8:09 AM Incision Close/Procedure End Time: 9:36 AM Surgeon(s)/Procedurali st(s) and Head Of Merchandise Buying(s): Surgeon(s) and Role: * Daisy Mendoza MD - Primary * David Yoo MD - Resident - Assisting OPERATIVE PROCEDURE: OPERATION: Flexible cystoscopy. Right ureteral stent removal Right retrograde pyelogram Right ureteral stent placement Abdominal ultrasound Open cystotomy with placement of suprapubic catheter. ANESTHESIA: General. 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 We discussed the options at length and he agreed to proceed with SPT and right ureteral stent exchange. Anatomic Site: Bladder, Laterality: N/A Urethra, Laterality: Not applicable Approach: Endoscopic Open Device: None OPERATIVE PROCEDURE: The patient was taken to the operating room and placed on the operating table in the supine position. After administration of anesthesia, he was prepped and draped in standard fashion. A rigid scope was advanced into the bladder. The bladder was small and friable. The ureteral orifices were patulous. The distal coil of the right ureteral stent was grasped and pulled to the meatus where it was cannulated with a sensory wire. The stent was removed and a retrograde pyelogram was shot demonstrated and mid ureteral stricture. A new [id number] ureteral stent was placed on the right with good coils seen fluoroscopically and cystoscopically. We then placed a flexible scope and tried to fill the bladder. The bladder was very small in capacity. An ultrasound probe was placed on the abdomen and the bladder was visualized but could not be safely accessed percutaneously. We then elected to proceed with open SPT placement. We then made a lower midline incision just above the pubis and deepened it using electrocautery. Fascia was opened in the midline and we bluntly identified the space between the rectus muscles to enter the retropubic region. The transversalis fascia was cleared from the anterior bladder wall, which was readily palpable. We identified a site for the catheter near the dome of the bladder and passed a needle at that point and obtained clear efflux. We placed a rigid scope into the bladder to confirm position. We then advanced a wire through the spinal needle and removed the needle. An 18F cook dilator was passed over the wire under direct vision and then removed, and a 16F leech lake was advanced over the wire and the balloon inflated with 10mls of sterile water. We then irrigated and made sure that hemostasis was good. Fascia was closed using interrupted gnyivf-vq-oecky sutures of #0 PDS. Subcutaneous tissues were reapproximated around the catheter using interrupted 3-0 vicryl. The skin was closed using a running subcuticular 4-0 monocryl. Glue was applied over top.. Catheter was secured to the skin using 0 Prolene. It continued to drain well at the end of the case. The patient tolerated the procedure well. He emerged from anesthesia and was taken to recovery room in stable condition. I performed the case with the assistance of Dr Yoo INCIDENTAL PUNCTURES OR LACERATIONS: None. ESTIMATED BLOOD LOSS: Total blood loss was estimated 10 mL. DRAINS: SPT SPECIMENS: None. Daisy Mendoza MD [facility] CBC panel Auto (Bld)on 02-23 Erythrocyte distribution width (RBC) [Ratio] 15.8 % High 11.5-15.0 [facility] Comment on above: Order Comment: Speci men Type: BLOOD SPECIMEN Ordering Facility: [facility] Address: [address] [address] Performed By: #### 5 8410-2 #### [facility] CLIA [id number] [address] [place] [address] 95141 Hematocrit (Bld) [Volume fraction] 29.7 % Low 39.0-51.0 [facility] Comment on above: Order Comment: Speci men Type: BLOOD SPECIMEN Ordering Facility: [facility] Address: [address] [place] [address] Performed By: #### 5 8410-2 #### [facility] CLIA [id number] [address] [place] [address] 50292 Hemoglobin (Bld) [Mass/Vol] 9.6 g/dL Low 13.0-17.0 [facility] Comment on above: Order Comment: Speci men Type: BLOOD SPECIMEN Ordering Facility: [facility] Address: [address] [place] [address] Performed By: #### 5 8410-2 #### [facility] CLIA [id number] [address] [place] [address] 02240 MCH (RBC) [Entitic mass] 35.8 pg High 26.0-34.0 [facility] Comment on above: Order Comment: Speci men Type: BLOOD SPECIMEN Ordering Facility: [facility] Address: [address] [place] [address] Performed By: #### 5 8410-2 #### [facility] CLIA [id number] [address] [place] [address] 88500 MCHC (RBC) [Mass/Vol] 32.3 g/dL Normal 30.5-36.0 [facility] Comment on above: Order Comment: Speci men Type: BLOOD SPECIMEN Ordering Facility: [facility] Address: [address] [place] [address] Performed By: #### 5 8410-2 #### [facility] CLIA [id number] [address] [place] [address] 95539 MCV (RBC) [Entitic vol] 110.8 fL High 80.0-100.0 [facility] Comment on above: Order Comment: Speci men Type: BLOOD SPECIMEN Ordering Facility: [facility] Address: [address] [place] [address] Performed By: #### 5 8410-2 #### [facility] CLIA [id number] [address] [place] [address] 89160 Nucleated RBC (Bld) [#/Vol] 10*3/uL Normal <0.01 [facility] Comment on above: Order Comment: Speci men Type: BLOOD SPECIMEN Ordering Facility: [facility] Address: [address] [place] [address] Performed By: #### 5 8410-2 #### [facility] CLIA [id number] [address] [place] [address] 07397 Platelet mean volume (Bld) [Entitic vol] 10.9 fL Normal 9.0-12.7 [facility] Comment on above: Order Comment: Speci men Type: BLOOD SPECIMEN Ordering Facility: [facility] Address: [address] [place] [address] Performed By: #### 5 8410-2 #### [facility] CLIA [id number] [address] [place] [address] 94281 Platelets (Bld) [#/Vol] 126 10*3/uL Low 150-400 [facility] Comment on above: Order Comment: Speci men Type: BLOOD SPECIMEN Ordering Facility: [facility] Address: [address] [address] Performed By: #### 5 8410-2 #### [facility] CLIA [id number] [address] [place] [address] 20602 RBC (Bld) [#/Vol] 2.68 10*6/uL Low 4.20-6.00 [facility] Comment on above: Order Comment: Speci men Type: BLOOD SPECIMEN Ordering Facility: [facility] Address: [address] [address] Performed By: #### 5 8410-2 #### [facility] CLIA [id number] [address] [place] [address] 53254 WBC (Bld) [#/Vol] 6.45 10*3/uL Normal 3.70-11.00 [facility] Comment on above: Order Comment: Speci men Type: BLOOD SPECIMEN Ordering Facility: [facility] Address: [address] [place] [address] Performed By: #### 5 8410-2 #### [facility] CLIA [id number] [address] [place], [place] [address] Comprehensive metabolic 2000 panelon 02-23-2023 Albumin [Mass/Vol] 4.2 g/dL Normal 3.9-4.9 [facility] Comment on above: Order Comment: Speci men Type: BLOOD SPECIMEN Ordering Facility: [facility] Address: [address] [place] [address] Performed By: #### 2 4323-8 #### [facility] CLIA [id number] [address] [place] [address] 73687 ALP [Catalytic activity/Vol] 107 U/L Normal 38-113 [facility] Comment on above: Order Comment: Speci men Type: BLOOD SPECIMEN Ordering Facility: [facility] Address: [address] [place] [address] Performed By: #### 2 4323-8 #### [facility] CLIA [id number] [address] [place] [address] 72368 ALT [Catalytic activity/Vol] 12 U/L Normal 10-54 [facility] Comment on above: Order Comment: Speci men Type: BLOOD SPECIMEN Ordering Facility: [facility] Address: [address] [address] Performed By: #### 2 4323-8 #### [facility] CLIA [id number] [address] [place] [address] 87765 Anion gap [Moles/Vol] 8 mmol/L Low 9-18 [facility] Comment on above: Order Comment: Speci men Type: BLOOD SPECIMEN Ordering Facility: [facility] Address: [address] [address] Performed By: #### 2 4323-8 #### [facility] CLIA [id number] [address] [place] [address] 60788 AST [Catalytic activity/Vol] 17 U/L Normal 14-40 [facility] Comment on above: Order Comment: Speci men Type: BLOOD SPECIMEN Ordering Facility: [facility] Address: [address] [address] Performed By: #### 2 4323-8 #### [facility] CLIA [id number] [address] [place] [address] 34562 Bilirubin [Mass/Vol] 0.5 mg/dL Normal 0.2-1.3 [facility] Comment on above: Order Comment: Speci men Type: BLOOD SPECIMEN Ordering Facility: [facility] Address: [address] [address] Performed By: #### 2 4323-8 #### [facility] CLIA [id number] [address] [place] [address] 60183 Calcium [Mass/Vol] 9.3 mg/dL Normal 8.5-10.2 [facility] Comment on above: Order Comment: Speci men Type: BLOOD SPECIMEN Ordering Facility: [facility] Address: [address] [address] Performed By: #### 2 4323-8 #### [facility] CLIA [id number] [address] [place] [address] Chloride [Moles/Vol] 107 mmol/L High 97-105 [facility] Comment on above: Order Comment: Speci men Type: BLOOD SPECIMEN Ordering Facility: [facility] Address: [address] [place] [address] Performed By: #### 2 4323-8 #### [facility] CLIA [id number] [address] [place] [address] 20002 CO2 [Moles/Vol] 27 mmol/L Normal 22-30 [facility] Comment on above: Order Comment: Speci men Type: BLOOD SPECIMEN Ordering Facility: [facility] Address: [address] [place] [address] Performed By: #### 2 4323-8 #### [facility] CLIA [id number] [address] [place] [address] 61516 Creatinine [Mass/Vol] 1.72 mg/dL High 0.73-1.22 [facility] Comment on above: Order Comment: Speci men Type: BLOOD SPECIMEN Ordering Facility: [facility] Address: [address] [place] [address] Performed By: #### 2 4323-8 #### [facility] CLIA [id number] [address] [place] [address] 70419 ESTIMATED GLOMERULAR FILTRATION RATE 40 mL/min/1.73m??? Low >=60 [facility] Comment on above: Order Comment: Speci men Type: BLOOD SPECIMEN Ordering Facility: [facility] Address: [address] [place] [address] Result Comment: Vijaya mated Glomerular Filtration Rate (eGFR) is calculated using the 2020 CKD-EPI creatinine equation. This equation utilizes serum creatinine, sex, and age as parameters. The creatinine assay has traceable calibration to isotope dilution-mass spectrometry. Refer to KDIGO guidelines for clinical interpretation. In patients with unstable renal function, e.g. those with acute kidney injury, the eGFR may not accurately reflect actual GFR. Performed By: #### 2 4323-8 #### [facility] CLIA [id number] [address] [place] [address] Glucose [Mass/Vol] 112 mg/dL High 74-99 [facility] Comment on above: Order Comment: Speci men Type: BLOOD SPECIMEN Ordering Facility: [facility] Address: [address] [place] [address] Result Comment: The [place] Diabetes Association (ADA) provides guidance for cutoff values for fasting glucose and random glucose. The ADA defines fasting as no caloric intake for at least 8 hours. Fasting plasma glucose results between 100 to 125 mg/dL indicate increased risk for diabetes (prediabetes). Fasting plasma glucose results greater than or equal to 126 mg/dL meet the criteria for diagnosis of diabetes. In the absence of unequivocal hyperglycemia, results should be confirmed by repeat testing. In a patient with classic symptoms of hyperglycemia or hyperglycemic crisis, random plasma glucose results greater than or equal to 200 mg/dL meet the criteria for diagnosis of diabetes. Reference: Standards of Medical Care in Diabetes 2016, [place] [employer]. Diabetes Care. 2016.39(Suppl 1). Performed By: #### 2 4323-8 #### [facility] CLIA [id number] [address] [place] [address] 30353 Potassium [Moles/Vol] 3.9 mmol/L Normal 3.7-5.1 [facility] Comment on above: Order Comment: Speci men Type: BLOOD SPECIMEN Ordering Facility: [facility] Address: [address] [place] [address] Performed By: #### 2 4323-8 #### [facility] CLIA [id number] [address] [place] [address] 90327 Protein [Mass/Vol] 6.4 g/dL Normal 6.3-8.0 [facility] Comment on above: Order Comment: Speci men Type: BLOOD SPECIMEN Ordering Facility: [facility] Address: [address] [place] [address] Performed By: #### 2 4323-8 #### [facility] CLIA [id number] [address] [place] [address] 72225 Sodium [Moles/Vol] 142 mmol/L Normal 136-144 [facility] Comment on above: Order Comment: Speci men Type: BLOOD SPECIMEN Ordering Facility: [facility] Address: [address] [id number] Performed By: #### 2 4323-8 #### [facility] CLIA [id number] [address] [place] [address] 63587 Urea nitrogen [Mass/Vol] 20 mg/dL Normal 9-24 [facility] Comment on above: Order Comment: Speci men Type: BLOOD SPECIMEN Ordering Facility: [facility] [address] [facility] [address] [address] [address] Performed By: #### 2 4323-8 #### [facility] CLIA [id number] [address] [place] [address] 95875 URINE, PRESURGICAL STERILIZA TION CULTUREon 02-23-2023 URINE, PRESURGICAL STERILIZATION CULTURE CULTURE, URINE: Mixed microbiota: ORGANISM ID: 1 >=100,000 CFU/ml Streptococcus agalactiae (group b streptococcus) Susceptibility testing not performed on beta hemolytic streptococci due to predictable susceptibility to penicillin and other beta lactams. For testing, call Microbiology within 72 hours. ORGANISM ID: 2 1,000 - <5,000 CFU/ml Escherichia coli ORGANISM ID: 3 1,000 - <5,000 CFU/ml Corynebacterium amycolatum No susceptibility testing done. ORGANISM ID: 2 (ESCHERICHIA COLI) -- ANTIBIOTIC INTERPRETATION DEEPA STATUS REFERENCE RANGE -- Ampicillin S <=2 F Susceptible <=8 , Intermediate >8 , Resistant >16 Cefazolin S <=4 F Susceptible 0-16 , Intermediate <0 or >16 , Resistant >16 Ceftriaxone S <=1 F Susceptible <=1 , Intermediate >1 , Resistant >=4 Cefepime S <=1 F Susceptible <=2 , Susceptible-Dose Dependent >2 , Resistant >=16 Ertapenem S <=0.5 F Susceptible <=0.5 , Intermediate >.5 , Resistant >1 Meropenem S <=0.25 F Susceptible <=1 , Intermediate >1 , Resistant >2 Ampicillin/Sulbact S <=2 F Susceptible <=8 , Intermediate >8 , Resistant >16 Piperacillin/Tazobac S <=4 F Susceptible <=16 , Intermediate >16 , Resistant >64 Gentamicin S <=1 F Susceptible <=4 , Intermediate >4 , Resistant >8 Tobramycin S <=1 F Susceptible <=4 , Intermediate >4 , Resistant >8 Trimeth sulfameth S <=20 F Susceptible <=40 , Resistant >40 Ciprofloxacin S <=0.25 F Susceptible <0.5 , Intermediate >=.5 , Resistant >=1 Nitrofurantoin S <=16 F Susceptible <=32 , Intermediate >32 , Resistant >[address] [facility] Comment on above: Performed By: #### U RCUL #### [facility] CLIA [id number] [address] [place] [address] [place] Alanine aminotransferase [En zymatic activity/volume] in Serum or PlasmaOrdered By: Brook Huddleston on 02-19-2023 ALT [Catalytic activity/Vol] 14 U/L 7-52 [facility] Albumin [Mass/volume] in Ser um or Plasma by Bromocresol green (BCG) dye binding methoOrdered By: Brook Huddleston on 02-19-2023 Albumin BCG dye [Mass/Vol] 3.9 g/dL 3.5-5.7 [facility] Alkaline phosphatase [Enzyma tic activity/volume] in Serum or PlasmaOrdered By: Brook Huddleston on 02-19-2023 ALP [Catalytic activity/Vol] 77 U/L 34-104 [facility] Aspartate aminotransferase [ Enzymatic activity/volume] in Serum or PlasmaOrdered By: Brook Huddleston on 02-19-2023 AST [Catalytic activity/Vol] 16 U/L 13-39 [facility] Basophils Auto (Bld) [#/Vol] Ordered By: Brook Huddleston on 02-19-2023 Basophils (Bld) [#/Vol] 0.0 10*3/uL 0.0-0.2 [facility] Basophils/100 WBC Auto (Bld) Ordered By: Brook Huddleston on 02-19-2023 Basophils/100 WBC (Bld) 0.3 % . [facility] Bilirubin.total [Mass/volume ] in Serum or PlasmaOrdered By: Brook Huddleston on 02-19-2023 Bilirubin [Mass/Vol] 0.5 mg/dL 0.3-1.0 [facility] Calcium [Mass/volume] in Ser um or PlasmaOrdered By: Brook Huddleston on 02-19-2023 Calcium [Mass/Vol] 8.7 mg/dL 8.6-10.3 [facility] Carbon dioxide, total [Moles /volume] in Serum or PlasmaOrdered By: rBook Huddleston on 02-19-2023 CO2 [Moles/Vol] 28.1 mmol/L 21.0-31.0 [facility] Chloride [Moles/volume] in S valeria or PlasmaOrdered By: Brook Huddleston on 02-19-2023 Chloride [Moles/Vol] 108 mmol/L 98-107 [facility] Complete Blood Count Auto Di ffon 02-19-2023 Basophils (Bld) [#/Vol] 0.0 10*3/uL Normal 0.0-0.2 [facility] Comment on above: Result Comment: PERF ORMED BY:[facility] [place], [place] [id number] MEDICAL DIRECTORMEAGAN HARDING M.D. Performed By: #### C MP, CBC ####[facility] [place] [address] [facility] Basophils/100 WBC (Bld) 0.3 % Normal . [facility] Comment on above: Performed By: #### C MP, CBC ####[address] Eosinophils (Bld) [#/Vol] 0.2 10*3/uL Normal 0.0-0.45 [facility] Comment on above: Performed By: #### C MP, CBC ####[address] Eosinophils/100 WBC (Bld) 4.0 % Normal . [facility] Comment on above: Performed By: #### C MP, CBC ####[address] Erythrocyte distribution width (RBC) [Ratio] 16.9 % High 12.0-14.8 [facility] Comment on above: Performed By: #### C MP, CBC ####[address] Hematocrit (Bld) [Volume fraction] 27.7 % Low 38.8-50.0 [facility] Comment on above: Performed By: #### C MP, CBC ####[address] Hemoglobin (Bld) [Mass/Vol] 9.4 g/dL Low 13.0-17.0 [facility] Comment on above: Performed By: #### C MP, CBC ####[address] Lymphocytes (Bld) [#/Vol] 1.0 10*3/uL Normal 1.00-4.8 [facility] Comment on above: Performed By: #### C MP, CBC ####[address] Lymphocytes/100 WBC (Bld) 18.2 % Normal . [facility] Comment on above: Performed By: #### C MP, CBC ####[address] MCH (RBC) [Entitic mass] 36.5 pg High 27.5-35.2 [facility] Comment on above: Performed By: #### C MP, CBC ####[address] MCV (RBC) [Entitic vol] 107.8 fL High 83.5-101 [facility] Comment on above: Performed By: #### C MP, CBC ####[address] Mean Corpuscular HGB Conc 33.9 g/dL Normal 32.5-35.6 [facility] Comment on above: Performed By: #### C MP, CBC ####[address] Monocytes (Bld) [#/Vol] 0.3 10*3/uL Normal 0.0-0.8 [facility] Comment on above: Performed By: #### C MP, CBC ####[address] Monocytes/100 WBC (Bld) 6.0 % Normal . [facility] Comment on above: Performed By: #### C MP, CBC ####[address] Neutrophils (Bld) [#/Vol] 4.1 10*3/uL Normal 1.8-7.7 [facility] Comment on above: Performed By: #### C MP, CBC ####[address] Neutrophils/100 WBC (Bld) 71.5 % Normal . [facility] Comment on above: Performed By: #### C MP, CBC ####[address] NRBC% 0.0 /100{WBC} Normal 0-0.5 [facility] Comment on above: Performed By: #### C MP, CBC ####[address] Platelet mean volume (Bld) [Entitic vol] 8.4 fL Normal 6.6-10.1 [facility] Comment on above: Performed By: #### C MP, CBC ####[place] [id number] [facility] Platelets (Bld) [#/Vol] 118 10*3/uL Low 150-450 [facility] Comment on above: Performed By: #### C MP, CBC ####[address] RBC (Bld) [#/Vol] 2.57 10*6/uL Low 3.90-5.60 [facility] Comment on above: Performed By: #### C MP, CBC ####[place] [id number] [facility] WBC (Bld) [#/Vol] 5.7 10*3/uL Normal 4.1-10.5 [facility] Comment on above: Performed By: #### C MP, CBC ####[address] Comprehensive Metabolic Pane mana 02-19-2023 Albumin [Mass/Vol] 3.9 g/dL Normal 3.5-5.7 [facility] Comment on above: Performed By: #### C MP, CBC ####[place] [id number] [facility] Albumin/Globulin [Mass ratio] 2.0 {ratio} Normal [facility] Comment on above: Performed By: #### C MP, CBC ####[place] [id number] [facility] ALP [Catalytic activity/Vol] 77 U/L Normal 34-104 [facility] Comment on above: Performed By: #### C MP, CBC ####[place] [id number] [facility] ALT [Catalytic activity/Vol] 14 U/L Normal 7-52 [facility] Comment on above: Performed By: #### C MP, CBC ####[address] Anion gap [Moles/Vol] 8.0 mmol/L Normal 6.0-15.0 [facility] Comment on above: Performed By: #### C MP, CBC ####[address] [address] [facility] AST [Catalytic activity/Vol] 16 U/L Normal 13-39 [facility] Comment on above: Performed By: #### C MP, CBC ####[address] [address] [facility] Bilirubin [Mass/Vol] 0.5 mg/dL Normal 0.3-1.0 [facility] Comment on above: Performed By: #### C MP, CBC ####[place] [id number] [place] [address] [facility] Calcium [Mass/Vol] 8.7 mg/dL Normal 8.6-10.3 [facility] Comment on above: Performed By: #### C MP, CBC ####[address] [address] [facility] Chloride [Moles/Vol] 108 mmol/L High 98-107 [facility] Comment on above: Performed By: #### C MP, CBC ####[address] [address] [facility] CO2 [Moles/Vol] 28.1 mmol/L Normal 21.0-31.0 [facility] Comment on above: Performed By: #### C MP, CBC ####[address] [address] [facility] Creatinine [Mass/Vol] 1.71 mg/dL High 0.70-1.30 [facility] Comment on above: Performed By: #### C MP, CBC ####[address] [address] [place] Creatinine Clr Calc Pharmacy 44.08 Normal [facility] Comment on above: Result Comment: PERF ORMED BY:[address] [place] [phone] MEDICAL DIRECTORMEAGAN HARDING M.D. Performed By: #### C MP, CBC ####[facility] [place] [address] [place] GFR/1.73 sq M.predicted MDRD (S/P/Bld) [Vol rate/Area] 40.467 mL/min/{1.73_m2} [facility] Comment on above: Performed By: #### C MP, CBC ####[facility] [place] [address] [facility] Globulin (S) [Mass/Vol] 2.0 g/dL [facility] Comment on above: Performed By: #### C MP, CBC ####[address] [address] [facility] Glucose [Mass/Vol] 99 mg/dL Normal 70-100 [facility] Comment on above: Result Comment: [facility] Glucose Reference Range is dependent on time and content of last meal. Glucose of more than 200 mg/dL in a nonstressed, ambulatory subject supports the diagnosis of Diabetes Mellitus. ADA recommended reference range Performed By: #### C MP, CBC ####[address] [address] [facility] Potassium [Moles/Vol] 4.1 mmol/L Normal 3.5-5.1 [facility] Comment on above: Performed By: #### C MP, CBC ####[address] [address] [facility] Protein [Mass/Vol] 5.9 g/dL Low 6.4-8.9 [facility] Comment on above: Performed By: #### C MP, CBC ####[address] [address] [facility] Sodium [Moles/Vol] 140 mmol/L Normal 136-145 [facility] Comment on above: Performed By: #### C MP, CBC ####[address] [address] [facility] Urea nitrogen [Mass/Vol] 22 mg/dL Normal 7-25 [facility] Comment on above: Performed By: #### C MP, CBC ####[place] [address] [place] [address] [facility] Creatinine [Mass/volume] in Serum or PlasmaOrdered By: Brook Huddleston on 02-19-2023 Creatinine [Mass/Vol] 1.71 mg/dL 0.70-1.30 [facility] Eosinophils Auto (Bld) [#/Vo l]Ordered By: Brook Huddleston on 02-19-2023 Eosinophils (Bld) [#/Vol] 0.2 10*3/uL 0.0-0.45 [facility] Eosinophils/100 WBC Auto (Bl d)Ordered By: Brook Huddleston on 02-19-2023 Eosinophils/100 WBC (Bld) 4.0 % . [facility] Erythrocyte distribution wid th Auto (RBC) [Ratio]Ordered By: Brook Huddleston on 02-19-2023 Erythrocyte distribution width (RBC) [Ratio] 16.9 % 12.0-14.8 [facility] Globulin Calc (S) [Mass/Vol] Ordered By: Brook Huddleston on 02-19-2023 Globulin (S) [Mass/Vol] 2.0 g/dL [facility] Glucose [Mass/volume] in Ser um or PlasmaOrdered By: Brook Huddleston on 02-19-2023 Glucose [Mass/Vol] 99 mg/dL 70-100 [facility] Comment on above: ADA recommended refe rence rangeRandom Glucose Reference Range is dependent on time and content of last meal. Glucose of more than 200 mg/dL in a nonstressed, ambulatory subject supports the diagnosis of Diabetes Mellitus. Hematocrit Auto (Bld) [Volum e fraction]Ordered By: Brook Huddleston on 02-19-2023 Hematocrit (Bld) [Volume fraction] 27.7 % 38.8-50.0 [facility] Hemoglobin [Mass/volume] in BloodOrdered By: Brook Huddleston on 02-19-2023 Hemoglobin (Bld) [Mass/Vol] 9.4 g/dL 13.0-17.0 [facility] Leukocytes [#/volume] correc lizbet for nucleated erythrocytes in Blood by Automated counOrdered By: Brook Huddleston on 02-19-2023 WBC corrected for nucl RBC Auto (Bld) [#/Vol] 5.7 10*3/uL 4.1-10.5 [facility] Lymphocytes Auto (Bld) [#/Vo l]Ordered By: Brook Huddleston on 02-19-2023 Lymphocytes (Bld) [#/Vol] 1.0 10*3/uL 1.00-4.8 [facility] Lymphocytes/100 WBC Auto (Bl d)Ordered By: Brook Huddleston on 02-19-2023 Lymphocytes/100 WBC (Bld) 18.2 % . [facility] MCH Auto (RBC) [Entitic mass ]Ordered By: Brook Huddleston on 02-19-2023 MCH (RBC) [Entitic mass] 36.5 pg 27.5-35.2 [facility] MCHC Auto (RBC) [Mass/Vol]Or dered By: Brook Huddleston on 02-19-2023 MCHC (RBC) [Mass/Vol] 33.9 g/dL 32.5-35.6 [facility] MCV Auto (RBC) [Entitic vol] Ordered By: Brook Huddleston on 02-19-2023 MCV (RBC) [Entitic vol] 107.8 fL 83.5-101 [facility] Monocytes Auto (Bld) [#/Vol] Ordered By: Brook Huddleston on 02-19-2023 Monocytes (Bld) [#/Vol] 0.3 10*3/uL 0.0-0.8 [facility] Monocytes/100 WBC Auto (Bld) Ordered By: Brook Huddleston on 02-19-2023 Monocytes/100 WBC (Bld) 6.0 % . [facility] Neutrophils Auto (Bld) [#/Vo l]Ordered By: Brook Huddleston on 02-19-2023 Neutrophils (Bld) [#/Vol] 4.1 10*3/uL 1.8-7.7 [facility] Neutrophils/100 WBC Auto (Bl d)Ordered By: Brook Huddleston on 02-19-2023 Neutrophils/100 WBC (Bld) 71.5 % . [facility] No Panel InformationOrdered By: Brook Huddleston on 02-19-2023 Estimated GFR (CKD-EPI) 40.467 mL/Min [facility] Creatinine Clearance (Chem 44.08 [facility] Nucleated erythrocytes [Pres ence] in Blood by Automated countOrdered By: Brook Huddleston on 02-19-2023 Nucleated RBC Auto Ql (Bld) 0.0 /100{WBC} 0-0.5 [facility] Platelet mean volume Auto (B ld) [Entitic vol]Ordered By: Brook Huddleston on 02-19-2023 Platelet mean volume (Bld) [Entitic vol] 8.4 fL 6.6-10.1 [facility] Platelets Auto (Bld) [#/Vol] Ordered By: Brook Huddleston on 02-19-2023 Platelets (Bld) [#/Vol] 118 10*3/uL 150-450 [facility] Potassium [Moles/volume] in Serum or PlasmaOrdered By: Brook Huddleston on 02-19-2023 Potassium [Moles/Vol] 4.1 mmol/L 3.5-5.1 [facility] Protein [Mass/volume] in Ser um or PlasmaOrdered By: Brook Huddleston on 02-19-2023 Protein [Mass/Vol] 5.9 g/dL 6.4-8.9 [facility] RBC Auto (Bld) [#/Vol]Ordere d By: Brook Huddleston on 02-19-2023 RBC (Bld) [#/Vol] 2.57 10*6/uL 3.90-5.60 [facility] Serum or plasma albumin/glob ulin mass ratioOrdered By: Brook Huddleston on 02-19-2023 Albumin/Globulin [Mass ratio] 2.0 {ratio} [facility] Serum or plasma anion gap de terminationOrdered By: Brook Huddleston on 02-19-2023 Anion gap [Moles/Vol] 8.0 mmol/L 6.0-15.0 [facility] Sodium [Moles/volume] in Ser um or PlasmaOrdered By: Brook Huddleston on 02-19-2023 Sodium [Moles/Vol] 140 mmol/L 136-145 [facility] Urea nitrogen [Mass/volume] in Serum or PlasmaOrdered By: Brook Huddleston on 02-19-2023 Urea nitrogen [Mass/Vol] 22 mg/dL 7-25 [facility] WBC Auto (Bld) [#/Vol]Ordere d By: Brook Huddleston on 02-19-2023 WBC (Bld) [#/Vol] 5.7 10*3/uL 4.1-10.5 [facility] XR lumbar spine min 4V*on XR lumbar spine min 4V* Normal [facility] Patient Educationon 02-14-20 Patient Education Nephrology Dietary Guidelines to Help Prevent Kidney Stones Kidney stones are deposits of minerals and salts that form inside your kidneys. Your risk of developing kidney stones may be greater depending on your diet, your lifestyle, the medicines you take, and whether you have certain medical conditions. Most people can lower their chances of developing kidney stones by following the instructions below. Your dietitian may give you more specific instructions depending on your overall health and the type of kidney stones you tend to develop. What are tips for following this plan? Reading food labels ? Choose foods with no salt added or low-salt labels. Limit your salt (sodium) intake to less than 1,500 mg a day. ? Choose foods with calcium for each meal and snack. Try to eat about 300 mg of calcium at each meal. Foods that contain 200?500 mg of calcium a serving include: ? 8 oz (237 mL) of milk, pgyqotw-xgnhxnortbjj-n airy milk, and calcium-fortifiedfruit juice. Calcium-fortified means that calcium has been added to these drinks. ? 8 oz (237 mL) of kefir, yogurt, and soy yogurt. ? 4 oz (114 g) of tofu. ? 1 oz (28 g) of cheese. ? 1 cup (150 g) of dried figs. ? 1 cup (91 g) of cooked broccoli. ? One 3 oz (85 g) can of sardines or mackerel. Most people need 1,000?1,500 mg of calcium a day. Talk to your dietitian about how much calcium is recommended for you. Shopping ? Buy plenty of fresh fruits and vegetables. Most people do not need to avoid fruits and vegetables, even if these foods contain nutrients that may contribute to kidney stones. ? When shopping for convenience foods, choose: ? Whole pieces of fruit. ? Pre-made salads with dressing on the side. ? Low-fat fruit and yogurt smoothies. ? Avoid buying frozen meals or prepared deli foods. These can be high in sodium. ? Look for foods with live cultures, such as yogurt and kefir. ? Choose high-fiber grains, such as whole-wheat breads, oat bran, and wheat cereals. Cooking ? Do not add salt to food when cooking. Place a salt shaker on the table and allow each person to add his or her own salt to taste. ? Use vegetable protein, such as beans, textured vegetable protein (TVP), or tofu, instead of meat in pasta, casseroles, and soups. Meal planning ? Eat less salt, if told by your dietitian. To do this: ? Avoid eating processed or pre-made food. ? Avoid eating fast food. ? Eat less animal protein, including cheese, meat, poultry, or fish, if told by your dietitian. To do this: ? Limit the number of times you have meat, poultry, fish, or cheese each week. Eat a diet free of meat at least 2 days a week. ? Eat only one serving each day of meat, poultry, fish, or seafood. ? When you prepare animal protein, cut pieces into small portion sizes. For most meat and fish, one serving is about the size of the palm of your hand. ? Eat at least five servings of fresh fruits and vegetables each day. To do this: ? Keep fruits and vegetables on hand for snacks. ? Eat one piece of fruit or a handful of berries with breakfast. ? Have a salad and fruit at lunch. ? Have two kinds of vegetables at dinner. ? Limit foods that are high in a substance called oxalate. These include: ? Spinach (cooked), rhubarb, beets, sweet potatoes, and [place] chard. ? Peanuts. ? Potato chips, polish fries, and baked potatoes with skin on. ? Nuts and nut products. ? Chocolate. ? If you regularly take a diuretic medicine, make sure to eat at least 1 or 2 servings of fruits or vegetables that are high in potassium each day. These include: ? Avocado. ? Banana. ? [place], prune, carrot, or tomato juice. ? Baked potato. ? Cabbage. ? Beans and split peas. Lifestyle ? Drink enough fluid to keep your urine pale yellow. This is the most important thing you can do. Spread your fluid intake throughout the day. ? If you drink alcohol: ? Limit how much you use to: ? 0?1 drink a day for women who are not . ? 0?2 drinks a day for men. ? Be aware of how much alcohol is in your drink. In the [place] one drink equals one 12 oz bottle of beer (355 mL), one 5 oz glass of wine (148 mL), or one 1? oz glass of hard liquor (44 mL). ? Lose weight if told by your health care provider. Work with your dietitian to find an eating plan and weight loss strategies that work best for you. General information ? Talk to your health care provider and dietitian about taking daily supplements. You may be told the following depending on your health and the cause of your kidney stones: ? Not to take supplements with vitamin C. ? To take a calcium supplement. ? To take a daily probiotic supplement. ? To take other supplements such as magnesium, fish oil, or vitamin B6. ? Take rdsk-gnh-hxxzjlq and prescription medicines only as told by your health care provider. These include supplements. What foods should I limit? Limit your in (more content not included)... Normal [facility] Urology Office/Clinic Noteon 02-13-2023 Urology Office/Clinic Note Chief Complaint pt here today for 1 month cath change HPI Staff 1 month Bond change. Previous DX: asymptomatic microscopic hematuria, bilateral hydronephrosis, BPH w/ urinary obstruction, dysuria, family history of prostate cancer in father, glycosuria, history of kidney stones, hydroureter, incomplete bladder emptying, kidney stone, nocturia, OAB, prostate cancer, UTI, UTI symptoms, weak urine stream. S/P cysto/RG/ureteroscopy/ stent placement/RT ureteral dilation done on 12/10/22, TURP done on 08/27/22, UroLift done on 05/05/22. Pt is currently taking Oxybutynin 10 ER qd. Dysuria: denies Hematuria: denies Leaking: yes some leaking Abdominal pain: denies Flank pain: denies History of Present Illness Tests reviewed: none I have reviewed the previous health record information and history for this patient from Dr. Cortez. I have reviewed and verified the staff HPI to be accurate for this encounter. There have been no associated fever, chills, flank pain, or blood in the urine. Denies any urinary infections since last encounter. Review of Systems PHQ Score Initial Depression Screen Score: 0 ROS - Provider Constitutional: denies weight loss, denies hot flashes. Eyes: denies eye problems. Gastrointestinal: denies nausea, denies vomiting. Cardiovascular: denies chest pain or angina. Integumentary: no dryness Musculoskeletal: denies musculoskeletal symptoms. ENMT: denies otolaryngeal symptoms. Respiratory: no shortness of breath. Heme/Lymph: denies easy bleeding tendency, denies easy bruising tendency. Psychiatric: no confusion, no anxiety. Genitourinary: See HPI. Physical Exam Vitals & Measurements HR: 67(Peripheral) BP: 166/83 HT: 67 in HT: 171 cm WT: 94.8 kg WT: 208.56 lb BMI: 32.42 General Appearance: alert, no distress, well nourished, well developed male. Procedure The patient denies major complications since the last catheter change. There has been no blood in the urine and no evidence of fever, chills, or flank pain. The Bond was changed in the office today with no difficulties, and flushes appropriately to ensure proper placement. 16 fr coude cath was placed without difficulty. Bond catheter is placed to leg bag drainage. The patient should increase fluid intake to keep the urine clear. He should go to the ER for significant bleeding, blocked catheter, or fever or chills. Assessment/Plan 1. Hydroureteronephrosis (N13.30: Unspecified hydronephrosis) 10/14/22 - BUN 25. Crea 1.54. eGFR 44. (bond in place) Cr up to 2 without bond 12/08/22 - Cr 1.78. eGFR 37. BUN 30. K 5.0. (with bond) 12/17/22 - Cr 1.84. eGFR 37. BUN 22. K 5.3. (with stent) ANA 09/23/22 - Mild-mod bilateral hydroureteronephrosis. No mass or stones. CT AP wo con 10/02/22 - Mild-mod bilateral hydronephrosis and hydroureter without obstructing stone or mass. Non-obstructing calculi left kidney measuring 7 mm. Post Bond Renal US 10/14/22 neg for hydro. CMP 10/14/22 BUN 25, crea 1.54, eGFR 44. (From Cr 2 prior). ANA 10/30/22 - Mild right pelvocaliectasis, neg for hydro. Pt refused bond/CIC at that time. Renal US 11/17/22 [facility] [place] - R-sided hydronephrosis and proximal hydroureter. Findings have progressed since prior study. Cr 1.87/ eGFR 36.6 Cath placed 11/21/2022 ANA 12/01/22 - Right hydronephrosis, grossly similar to the prior study despite bond in place. S/P cysto/RG/ureteroscopy/ stent placement/RT ureteral dilation and stent placement 12/10/22. ANA 12/17/22 - Interval resolution of the right sided hydronephrosis since the prior US study. Taking Oxybutynin 10 ER qd. Stent not bothersome, oxybutynin working well. [place] improved, kidney draining, fxn preserved. Again thorough discussion regarding complex history of urge predominant BPH with LUTS status post UroLift and then TURP. No longer obstructed however patient's bladder is now significantly smaller capacity with bilateral reflux. Bilateral hydronephrosis and PVR 50% when Bond not in place. Right hydroureteronephrosis persistent despite catheter is due to distal ureteral stricture s/p minimal dilation for stent placement. Discussed complex situation regarding method of fixing stricture but also make the bladder more compliant to prevent reflux and recurrence of stricture. Given this in the setting of favorable intermediate prostate cancer (on ) and comorbidities, referred to tertiary center for further evaluation. Referred to [facility] urologist for right distal stricture, small capacity bladder with BL VUR at prior OV - plans for SPT and stent exchange 03/11/23. -Follow up after treatment or sooner if needed. Pt understands and agrees with plan. 2. Ureteral stricture (N13.5: Crossing vessel and stricture of ureter without hydronephrosis) Dense, short right distal ureteral stricture at the pelvic brim s/p 10Fr dilation and stent placement -See #1 regarding referral for repair/treatment in the setting of noncompliant bladder with reflux. 3. Noncompliant bladder (N31.9: Neuromuscula (more content not included)... Normal [facility] Comment on above: Result Comment: Elec tronically Signed By: Diego RICKS, Vesna Brock.angel\Date and Time Signed: 02/13/23 13:09 EDT HISTORY PHYSICALon 3 HISTORY PHYSICAL HNO ID: [id number] Author: Yocasta Garcias [email or web address].[email or web address] Service: ? Author Type: Nurse Practitioner Type: HANDP Filed: 02/11/2023 1:28 PM Note Text: HISTORY AND PHYSICAL EXAMINATION SERVICE DATE: 02/11/2023 SERVICE TIME: 12:30 PM PRIMARY CARE PHYSICIAN: No primary care provider on file. REASON FOR VISIT: [place] is a 78 year old male who is scheduled for INSERTION CATHETER SUPRAPUBIC Laterality Anesthesia Op Region N/A Monitored Anesthesia Care Bladder Procedure: CYSTOSCOPY, INSERTION STENT URETERAL J at the request of Dr. Daisy Mendoza for consultation. My final recommendation will be communicated back to the requesting physician by way of shared medical record or letter. The patient has the following: ACTIVE PROBLEM LIST Bone Marrow Transplant Status (Hcc) Rheumatoid Arthritis (Hcc) Prostate Cancer (Hcc) Subjective CHIEF COMPLAINT: Urethral stricture HPI: a 77 year old male with urosepsis neurogenic bladder, R ureteral stricture. Patient has had multiple UTIs and episodes of urosepsis starting in Aug 2021 This prompted outlet procedure - urolift and then TURP . Patient has a history of Porstate CA s/p TURP Denies history of back surgery, radiation, weakness in arms or legs PAST MEDICAL HISTORY Diagnosis Date BPH (benign prostatic hyperplasia) Diabetes (HCC) Hypertension Kidney stones Multiple myeloma (HCC) OAB (overactive bladder) Prostate CA (HCC) Rheumatoid arthritis (HCC) PAST SURGICAL HISTORY Procedure Laterality Date BONE MARROW TRANSPLANT, ALLOGENEIC CYSTOSCOPY 11/2022 ESWL 2008 TRANSURETHRAL ELEC-SURG PROSTATECTOM 08/2022 UROLIFT PROSTATE PROCEDURE 04/2022 No family history on file. SOCIAL HISTORY: Social History Tobacco Use Smoking status: Former Packs/day: 2.00 Types: Cigarettes Quit date: 1979 Years since quittin.5 Smokeless tobacco: Never Substance Use Topics Alcohol use: Yes Comment: none since 1990 leydi Drug use: Not Currently MEDICATIONS: Prior to Admission medications as of Medication Sig Last Dose Taking aspirin 81 mg chewable tablet mg tab(s), Chewed, Daily, Refills(s) 0 Yes atorvastatin (LIPITOR) 20 mg tablet Take by mouth. Yes famotidine (PEPCID) 20 mg tablet Take 20 mg by mouth. Yes metFORMIN ER (GLUCOPHAGE XR) 500 mg 24 hr tablet Yes oxybutynin ER (DITROPAN XL) 10 mg 24 hr tablet Yes MEN'S MULTI-VITAMIN ORAL Multi Vitamin Mens Active Yes Cholecalciferol, Vitamin D3, (D3-2000) 50 mcg (2,000 unit) cap Take by mouth. Yes Lactobacillus acidophilus (PROBIOTIC) 10 billion cell cap probiotic as directed Active Yes lisinopril (ZESTRIL) 10 mg tablet Take by mouth q 24 HR. Yes LANTUS SOLOSTAR U-100 INSULIN 100 unit/mL (3 mL) Yes insulin lispro (HUMALOG KWIKPEN) 100 unit/mL pen Inject 8 Units subcutaneously three times daily before meals. Plus sliding scale. Yes docusate sodium (STOOL SOFTENER) 100 mg capsule Take 100 mg by mouth twice daily as needed for constipation. Yes phosphorus (PHOSPHOROUS) 250 mg tablet Take 1 tablet by mouth three times daily. Yes No medication comments found. CURRENT ALLERGIES: ALLERGIES Allergen Reactions Mirabegron Diarrhea, GI Upset Gabapentin Rash COVID VACCINATION STATUS: Fully vaccinated REVIEW OF SYSTEMS: PAIN ASSESSMENT: General: No weight loss, malaise or fevers. Neuro: No history of TIA's, stroke, [employer] tumor, impaired sensorium, hemiplegia, paraplegia or quadraplegia. No neurological symptoms or problems. Respiratory: Positive for Tobacco Use Former Smoker , History of RUDY s/p Uvulectomy Negative for No history of current cough or dyspnea, or pneumonia in the past 6 weeks. No history of respiratory/pulmonary symptoms or problems Cardiovascular: Positive for: HLD, Hypertension no history of angina, CHF, FL, cardiac surgery or stents. Denies rest pain, gangrene or revascularization/ampu tation for PVD. GI: Positive for GERD, Negative for Hepatitis, Liver disease, Pancreatitis : See HPI Endocrine: Diabetes Mellitus on insulin, Diabetes Mellitus on oral agent, Diabetic Neuropathy Hematology: Chronic anti-coagulation / platelet meds (Aspirin), Anemia of chronic disease Aranasp injections has received 6 injections following with Hematology Oncology: History of Prostate CA s/p TURP no chemo or radiation Multiple Myeloma s/p bone marrow transplant with chemo Psych: No history of psychiatric symptoms or problems. Musculoskeletal: Joint pain Skin: Negative for lesions, rash and itching. Objective PHYSICAL EXAM: VITALS: BP 149/52 Pulse 66 Temp (Src) 97.7 (Temporal Artery) Resp 16 Ht 5' 9 (1.75m) Wt 216 lb (98.0kg) SpO2 100% BMI 31.88 kg/(m2). General: Alert and oriented, No acute distress, Healthy appearance Skin: Normal color, no rash, no lesions. HEENT: EOM, pupils equal, round and reactive., No carotid bruits Cardiovascular: Pulse regular. 2/6 mid systolic low pitched blowing murmur diffus (more content not included)... Normal [facility] Complete Blood Count Auto Di ffon 02-05-2023 Basophils (Bld) [#/Vol] 0.0 10*3/uL Normal 0.0-0.2 [facility] Comment on above: Result Comment: PERF ORMED BY:[address] [place], [place] [phone] MEDICAL DIRECTORMEAGAN HARDING M.D. Performed By: #### C MP, CBC ####[place] [id number] [facility] Basophils/100 WBC (Bld) 0.3 % Normal . [facility] Comment on above: Performed By: #### C MP, CBC ####[place] [id number] [facility] Eosinophils (Bld) [#/Vol] 0.2 10*3/uL Normal 0.0-0.45 [facility] Comment on above: Performed By: #### C MP, CBC ####[place] [id number] [facility] Eosinophils/100 WBC (Bld) 3.9 % Normal . [facility] Comment on above: Performed By: #### C MP, CBC ####[address] Erythrocyte distribution width (RBC) [Ratio] 16.6 % High 12.0-14.8 [facility] Comment on above: Performed By: #### C MP, CBC ####[place] [id number] [facility] Hematocrit (Bld) [Volume fraction] 28.1 % Low 38.8-50.0 [facility] Comment on above: Performed By: #### C MP, CBC ####[place] [id number] [facility] Hemoglobin (Bld) [Mass/Vol] 9.6 g/dL Low 13.0-17.0 [facility] Comment on above: Performed By: #### C MP, CBC ####[place] [id number] [facility] Lymphocytes (Bld) [#/Vol] 0.7 10*3/uL Low 1.00-4.8 [facility] Comment on above: Performed By: #### C MP, CBC ####[place] [id number] [facility] Lymphocytes/100 WBC (Bld) 13.1 % Normal . [facility] Comment on above: Performed By: #### C MP, CBC ####[place] [id number] [facility] MCH (RBC) [Entitic mass] 37.0 pg High 27.5-35.2 [facility] Comment on above: Performed By: #### C MP, CBC ####[place] [id number] [facility] MCV (RBC) [Entitic vol] 108.4 fL High 83.5-101 [facility] Comment on above: Performed By: #### C MP, CBC ####[place] [id number] [facility] Mean Corpuscular HGB Conc 34.1 g/dL Normal 32.5-35.6 [facility] Comment on above: Performed By: #### C MP, CBC ####[place] [id number] [facility] Monocytes (Bld) [#/Vol] 0.3 10*3/uL Normal 0.0-0.8 [facility] Comment on above: Performed By: #### C MP, CBC ####[facility] [place] [address] [place] Monocytes/100 WBC (Bld) 6.0 % Normal . [facility] Comment on above: Performed By: #### C MP, CBC ####[facility] [place] [address] [facility] Neutrophils (Bld) [#/Vol] 4.2 10*3/uL Normal 1.8-7.7 [facility] Comment on above: Performed By: #### C MP, CBC ####[address] [address] [facility] Neutrophils/100 WBC (Bld) 76.7 % Normal . [facility] Comment on above: Performed By: #### C MP, CBC ####[address] [address] [facility] NRBC% 0.1 /100{WBC} Normal 0-0.5 [facility] Comment on above: Performed By: #### C MP, CBC ####[address] [address] [facility] Platelet mean volume (Bld) [Entitic vol] 9.1 fL Normal 6.6-10.1 [facility] Comment on above: Performed By: #### C MP, CBC ####[address] [address] [facility] Platelets (Bld) [#/Vol] 136 10*3/uL Low 150-450 [facility] Comment on above: Performed By: #### C MP, CBC ####[address] [address] [facility] RBC (Bld) [#/Vol] 2.59 10*6/uL Low 3.90-5.60 [facility] Comment on above: Performed By: #### C MP, CBC ####[address] [address] [facility] WBC (Bld) [#/Vol] 5.5 10*3/uL Normal 4.1-10.5 [facility] Comment on above: Performed By: #### C MP, CBC ####[facility] [place] [address] [facility] Comprehensive Metabolic Pane mana 02-05-2023 Albumin [Mass/Vol] 4.2 g/dL Normal 3.5-5.7 [facility] Comment on above: Performed By: #### C MP, CBC ####[place] [address] [place] [address] [facility] Albumin/Globulin [Mass ratio] 2.6 {ratio} Normal [facility] Comment on above: Performed By: #### C MP, CBC ####[address] [address] [facility] ALP [Catalytic activity/Vol] 78 U/L Normal 34-104 [facility] Comment on above: Performed By: #### C MP, CBC ####[address] [address] [facility] ALT [Catalytic activity/Vol] 15 U/L Normal 7-52 [facility] Comment on above: Performed By: #### C MP, CBC ####[address] [address] [facility] Anion gap [Moles/Vol] 10.4 mmol/L Normal 6.0-15.0 [facility] Comment on above: Performed By: #### C MP, CBC ####[address] [address] [facility] AST [Catalytic activity/Vol] 19 U/L Normal 13-39 [facility] Comment on above: Performed By: #### C MP, CBC ####[address] [address] [facility] Bilirubin [Mass/Vol] 0.5 mg/dL Normal 0.3-1.0 [facility] Comment on above: Performed By: #### C MP, CBC ####[place] [address] [place] [address] [facility] Calcium [Mass/Vol] 8.8 mg/dL Normal 8.6-10.3 [facility] Comment on above: Performed By: #### C MP, CBC ####[facility] [place] [address] [facility] Chloride [Moles/Vol] 109 mmol/L High 98-107 [facility] Comment on above: Performed By: #### C MP, CBC ####[facility] [place] [address] [facility] CO2 [Moles/Vol] 24.8 mmol/L Normal 21.0-31.0 [facility] Comment on above: Performed By: #### C MP, CBC ####[place] [address] [place] [address] [facility] Creatinine [Mass/Vol] 1.45 mg/dL High 0.70-1.30 [facility] Comment on above: Performed By: #### C MP, CBC ####[address] [address] [facility] Creatinine Clr Calc Pharmacy 51.98 [facility] Comment on above: Result Comment: PERF ORMED BY:[address] [place], [place] [phone] MEDICAL DIRECTORMEAGAN HARDING M.D. Performed By: #### C MP, CBC ####[address] [address] [facility] GFR/1.73 sq M.predicted MDRD (S/P/Bld) [Vol rate/Area] 49.324 mL/min/{1.73_m2} [facility] Comment on above: Performed By: #### C MP, CBC ####[place] [address] [place] [address] [facility] Globulin (S) [Mass/Vol] 1.6 g/dL [facility] Comment on above: Performed By: #### C MP, CBC ####[address] [address] [facility] Glucose [Mass/Vol] 226 mg/dL High 70-100 [facility] Comment on above: Result Comment: [facility] Glucose Reference Range is dependent on time and content of last meal. Glucose of more than 200 mg/dL in a nonstressed, ambulatory subject supports the diagnosis of Diabetes Mellitus. ADA recommended reference range Performed By: #### C MP, CBC ####[address] Potassium [Moles/Vol] 4.2 mmol/L Normal 3.5-5.1 [facility] Comment on above: Performed By: #### C MP, CBC ####[address] Protein [Mass/Vol] 5.8 g/dL Low 6.4-8.9 [facility] Comment on above: Performed By: #### C MP, CBC ####[address] Sodium [Moles/Vol] 140 mmol/L Normal 136-145 [facility] Comment on above: Performed By: #### C MP, CBC ####[address] Urea nitrogen [Mass/Vol] 19 mg/dL Normal 7-25 [facility] Comment on above: Performed By: #### C MP, CBC ####[address] Complete Blood Count Auto Di ffon 01-22-2023 Basophils (Bld) [#/Vol] 0.0 10*3/uL Normal 0.0-0.2 [facility] Comment on above: Result Comment: PERF ORMED BY:[address] [place], [place] [id number] MEDICAL ANYA HARDING M.D. Performed By: #### C MP, CBC ####[address] Basophils/100 WBC (Bld) 0.3 % Normal . [facility] Comment on above: Performed By: #### C MP, CBC ####[address] Eosinophils (Bld) [#/Vol] 0.2 10*3/uL Normal 0.0-0.45 [facility] Comment on above: Performed By: #### C MP, CBC ####[address] Eosinophils/100 WBC (Bld) 3.3 % Normal . [facility] Comment on above: Performed By: #### C MP, CBC ####[address] Erythrocyte distribution width (RBC) [Ratio] 16.3 % High 12.0-14.8 [facility] Comment on above: Performed By: #### C MP, CBC ####[address] Hematocrit (Bld) [Volume fraction] 28.4 % Low 38.8-50.0 [facility] Comment on above: Performed By: #### C MP, CBC ####[address] Hemoglobin (Bld) [Mass/Vol] 9.7 g/dL Low 13.0-17.0 [facility] Comment on above: Performed By: #### C MP, CBC ####[address] Lymphocytes (Bld) [#/Vol] 0.9 10*3/uL Low 1.00-4.8 [facility] Comment on above: Performed By: #### C MP, CBC ####[address] Lymphocytes/100 WBC (Bld) 17.1 % Normal . [facility] Comment on above: Performed By: #### C MP, CBC ####[address] MCH (RBC) [Entitic mass] 37.3 pg High 27.5-35.2 [facility] Comment on above: Performed By: #### C MP, CBC ####[address] MCV (RBC) [Entitic vol] 108.9 fL High 83.5-101 [facility] Comment on above: Performed By: #### C MP, CBC ####[address] Mean Corpuscular HGB Conc 34.3 g/dL Normal 32.5-35.6 [facility] Comment on above: Performed By: #### C MP, CBC ####[address] Monocytes (Bld) [#/Vol] 0.3 10*3/uL Normal 0.0-0.8 [facility] Comment on above: Performed By: #### C MP, CBC ####[address] Monocytes/100 WBC (Bld) 6.4 % Normal . [facility] Comment on above: Performed By: #### C MP, CBC ####[address] Neutrophils (Bld) [#/Vol] 3.6 10*3/uL Normal 1.8-7.7 [facility] Comment on above: Performed By: #### C MP, CBC ####[address] Neutrophils/100 WBC (Bld) 72.9 % Normal . [facility] Comment on above: Performed By: #### C MP, CBC ####[address] NRBC% 0.0 /100{WBC} Normal 0-0.5 [facility] Comment on above: Performed By: #### C MP, CBC ####[address] Platelet mean volume (Bld) [Entitic vol] 9.8 fL Normal 6.6-10.1 [facility] Comment on above: Performed By: #### C MP, CBC ####[address] Platelets (Bld) [#/Vol] 112 10*3/uL Low 150-450 [facility] Comment on above: Performed By: #### C MP, CBC ####[place] [id number] [facility] RBC (Bld) [#/Vol] 2.61 10*6/uL Low 3.90-5.60 [facility] Comment on above: Performed By: #### C MP, CBC ####[place] [id number] [facility] WBC (Bld) [#/Vol] 5.0 10*3/uL Normal 4.1-10.5 [facility] Comment on above: Performed By: #### C MP, CBC ####[address] Comprehensive Metabolic Pane mana 01-22-2023 Albumin [Mass/Vol] 4.1 g/dL Normal 3.5-5.7 [facility] Comment on above: Performed By: #### C MP, CBC ####[address] Albumin/Globulin [Mass ratio] 2.2 {ratio} Normal [facility] Comment on above: Performed By: #### C MP, CBC ####[place] [id number] [facility] ALP [Catalytic activity/Vol] 87 U/L Normal 34-104 [facility] Comment on above: Performed By: #### C MP, CBC ####[place] [id number] [facility] ALT [Catalytic activity/Vol] 16 U/L Normal 7-52 [facility] Comment on above: Performed By: #### C MP, CBC ####[place] [id number] [facility] Anion gap [Moles/Vol] 10.9 mmol/L Normal 6.0-15.0 [facility] Comment on above: Performed By: #### C MP, CBC ####[place] [id number] [facility] AST [Catalytic activity/Vol] 16 U/L Normal 13-39 [facility] Comment on above: Performed By: #### C MP, CBC ####[place] [address] [place] [address] [facility] Bilirubin [Mass/Vol] 0.5 mg/dL Normal 0.3-1.0 [facility] Comment on above: Performed By: #### C MP, CBC ####[place] [address] [place] [id number] [facility] Calcium [Mass/Vol] 8.4 mg/dL Low 8.6-10.3 [facility] Comment on above: Performed By: #### C MP, CBC ####[place] [address] [place] [id number] [facility] Chloride [Moles/Vol] 107 mmol/L Normal 98-107 [facility] Comment on above: Performed By: #### C MP, CBC ####[place] [id number] [facility] CO2 [Moles/Vol] 26.4 mmol/L Normal 21.0-31.0 [facility] Comment on above: Performed By: #### C MP, CBC ####[place] [id number] [facility] Creatinine [Mass/Vol] 1.52 mg/dL High 0.70-1.30 [facility] Comment on above: Performed By: #### C MP, CBC ####[place] [id number] [facility] Creatinine Clr Calc Pharmacy 46.35 Normal [facility] Comment on above: Result Comment: PERF ORMED BY:[address] [place], [place] [phone] MEDICAL ANYA HARDING M.D. Performed By: #### C MP, CBC ####[place] [id number] [facility] GFR/1.73 sq M.predicted MDRD (S/P/Bld) [Vol rate/Area] 46.902 mL/min/{1.73_m2} Normal [facility] Comment on above: Performed By: #### C MP, CBC ####[address] [place] [address] [facility] Globulin (S) [Mass/Vol] 1.9 g/dL [facility] Comment on above: Performed By: #### C MP, CBC ####[address] [address] [facility] Glucose [Mass/Vol] 216 mg/dL High 70-100 [facility] Comment on above: Result Comment: [facility] Glucose Reference Range is dependent on time and content of last meal. Glucose of more than 200 mg/dL in a nonstressed, ambulatory subject supports the diagnosis of Diabetes Mellitus. ADA recommended reference range Performed By: #### C MP, CBC ####[address] [address] [facility] Potassium [Moles/Vol] 4.3 mmol/L Normal 3.5-5.1 [facility] Comment on above: Performed By: #### C MP, CBC ####[address] [address] [facility] Protein [Mass/Vol] 6.0 g/dL Low 6.4-8.9 [facility] Comment on above: Performed By: #### C MP, CBC ####[address] [address] [facility] Sodium [Moles/Vol] 140 mmol/L Normal 136-145 [facility] Comment on above: Performed By: #### C MP, CBC ####[address] [address] [facility] Urea nitrogen [Mass/Vol] 19 mg/dL Normal 7-25 [facility] Comment on above: Performed By: #### C MP, CBC ####[address] [address] [facility] Consultation Noteon 01-19-20 23 Consultation Note [id number] CD:[address] [facility] CNOVon 01-07-2023 CNOV Office Visit (URFMOB ) PATSY MILLS ([id number]) 1945 M Date Time Provider Department 01/07/23 3:30 PM DAISY MENDOZA URFMOB During your visit today, we recorded the following information about you: Daisy Mendoza MD 01/07/2023 5:03 PM Signed [facility] UROLOGY NEW PATIENT CLINIC NOTE SERVICE DATE: 01/07/2023 NAME: Patsy Mills REFERRED BY: No referring provider defined for this encounter. CHIEF COMPLAINT Ureter stent HISTORY OF PRESENT ILLNESS Mr. Mills is a 77 year old male with a history of multiple myeloma, CKD, bph, nephrolithiasis who presents for evaluation for right ureteral stricture Mr Mills reports multiple UTIs and episodes of urosepsis starting in Aug 2021 This prompted outlet procedure - urolift and then TURP Had worsening of urinary symptoms after this - bothersome nocturia q30min Work up with Dr Cortez included UDS and RBUS UDS October 2022 at [facility]: 42ml voided, Qmax 5ml/s, maximum detrusor recording 14 (unclear if this is w permission to void or if this represents poor compliance). PVR 77 RBUS showed hydro on R - RPG reportedly with R ureteral stx, stent placed in November 2022 TURP chips with favorable intermediate risk prostate cancer identified on TURP - on active surveillance ([place] 3+4, 7/ chips involved. PSA 1.5) Also has Multiple myeloma - sp bone marrow txp, now off meds for this other than Aranesp Denies history of back surgery, radiation, weakness in arms or legs PSH: ESWL 2009 Urolift in Apr 2022 TURP Aug 2022 (incidental finding of prostate cancer) Cysto, R RPG, R ureteral dilation, R ureteral stent November 2022 Here with his and son PAST MEDICAL HISTORY No past medical history on file. PAST SURGICAL HISTORY No past surgical history on file. FAMILY HISTORY No family history on file. SOCIAL HISTORY MEDICATIONS No current outpatient medications on file. No current facility-administered medications for this visit. CURRENT ALLERGIES Allergies As of Date: 01/07/2023 Allergen Noted Reaction MIRABEGRON 06/27/2022 Diarrhea and GI Upset GABAPENTIN 08/20/2021 Rash and Unknown Fully Assessed 01/07/2023 COMPLETE REVIEW OF SYSTEMS REVIEW OF SYSTEMS See hpi OBJECTIVE PHYSICAL EXAM: There were no vitals filed for this visit. There is no height or weight on file to calculate BMI. There were no vitals filed for this visit. General: pleasant Psych: euthymic, NAD Neuro: AANDOx3. CV: normal perfusion, hemodynamically stable Resp: normal effort Abdomen: soft, NT DATA Labs No results found for: WBC, HB, HCT, PLT, NA, K, CHLOR, CO2, BUN, CREAT ASSESSMENT/PLAN 77 M multiple myeloma sp bM txp, urosepsis and uti sp urolift and TURP with incidental CAP on TURP, high pressure low capacity bladder w VUR, R ureteral stricture. Complex situation - discussed options at length I need RPG images, CT scans, and UDS results If we were going to plan for Cx/Ic I would repeat VUDS If botox I would repeat VUDS 6 weeks after botox For bladder: - botox + CIC - SPT - cystectomy conduit For ureter: - regular stent exchanges (emphasized importance of having changes done regularly) - reimplant (would need to fix bladder first) - cystectomy conduit For prostate - - radiation (risk of worsening bladder function) - cystoprostatectomy conduit - will refer to one of my onc colleagues to discuss this further He would prefer SPT + stent exchanges Will get records and tentatively schedule for February Daisy Mendoza MD Associate Staff [facility] [place] Department of Urology I spent a total of 50 minutes on the date of the service which included preparing to see the patient, [id number] patient care, completing clinical documentation, obtaining and/or reviewing separately obtained history, performing a medically appropriate examination, counseling and educating the patient/family/caregiv er, and ordering medications, tests, or procedures. >50% of time was devoted to patient counseling. Allergies As of Date: 01/07/2023 Noted Allergy Reaction MIRABEGRON 06/27/2022 6 - Diarrhea 8 - GI Upset GABAPENTIN 08/20/2021 2 - Rash 16 - Unknown Date Reviewed: 01/07/2023 Reviewed by: Clarence Ware RN - Fully Assessed Reason for Visit: Consult [173] Primary Visit Diagnosis:Prostate cancer (HCC) [C61] Other Visit Diagnoses:Ureteral 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.5] Neurogenic bladder [N31.9] Benign prostatic hyperplasia with urinary obstruction [N40.1, N13.8] Problem List As Of Date: 01/07/2023 (None) Encounter Status:Closed by DAISY MENDOZA on 01/07/23 [facility] Albumin [Mass/volume] in Ser um or PlasmaOrdered By: Brook Huddleston on 01-05-2023 Albumin [Mass/Vol] 3.5 g/dL 2.9-4.4 [facility] Albumin/Protein.total in 24 hour Urine by ElectrophoresisOrdered By: Brook Huddleston on 01-05-2023 Albumin Elph (24H U) [Mass fraction] 50.4 % . [facility] Automated erythrocytes count in urine sediment (number/area)Ordered By: Price Crain on 01-05-2023 RBC Auto (Urine sed) [#/Area] 0-1 [HPF] 0-4 [facility] Automated leukocytes count i n urine sediment (number/area)Ordered By: Price Crain on 01-05-2023 WBC Auto (Urine sed) [#/Area] Innumerable [HPF] 0-4 [facility] Bilirubin Test strip Ql (U)O rdered By: Price Crain on 01-05-2023 Bilirubin Ql (U) Negative Negative [facility] Color Auto (U)Ordered By: Ivan Crain on 01-05-2023 Color (U) Yellow Yellow [facility] Complete Blood Count Auto Di ffon 01-05-2023 Basophils (Bld) [#/Vol] 0.0 10*3/uL Normal 0.0-0.2 [facility] Comment on above: Result Comment: PERF ORMED BY:[address] [place], [place] [phone] MEDICAL DIRECTORMEAGAN HARDING M.D. Performed By: #### C MP, CBC ####[address] Basophils/100 WBC (Bld) 0.5 % Normal . [facility] Comment on above: Performed By: #### C MP, CBC ####[address] Eosinophils (Bld) [#/Vol] 0.2 10*3/uL Normal 0.0-0.45 [facility] Comment on above: Performed By: #### C MP, CBC ####[address] Eosinophils/100 WBC (Bld) 4.9 % Normal . [facility] Comment on above: Performed By: #### C MP, CBC ####[address] Erythrocyte distribution width (RBC) [Ratio] 16.0 % High 12.0-14.8 [facility] Comment on above: Performed By: #### C MP, CBC ####[address] Hematocrit (Bld) [Volume fraction] 28.9 % Low 38.8-50.0 [facility] Comment on above: Performed By: #### C MP, CBC ####[address] Hemoglobin (Bld) [Mass/Vol] 9.8 g/dL Low 13.0-17.0 [facility] Comment on above: Performed By: #### C MP, CBC ####[address] Lymphocytes (Bld) [#/Vol] 0.9 10*3/uL Low 1.00-4.8 [facility] Comment on above: Performed By: #### C MP, CBC ####[address] [address] [place] Lymphocytes/100 WBC (Bld) 19.5 % Normal . [facility] Comment on above: Performed By: #### C MP, CBC ####[address] MCH (RBC) [Entitic mass] 37.1 pg High 27.5-35.2 [facility] Comment on above: Performed By: #### C MP, CBC ####[address] MCV (RBC) [Entitic vol] 109.2 fL High 83.5-101 [facility] Comment on above: Performed By: #### C MP, CBC ####[address] Mean Corpuscular HGB Conc 33.9 g/dL Normal 32.5-35.6 [facility] Comment on above: Performed By: #### C MP, CBC ####[address] Monocytes (Bld) [#/Vol] 0.3 10*3/uL Normal 0.0-0.8 [facility] Comment on above: Performed By: #### C MP, CBC ####[address] Monocytes/100 WBC (Bld) 7.1 % Normal . [facility] Comment on above: Performed By: #### C MP, CBC ####[address] Neutrophils (Bld) [#/Vol] 3.1 10*3/uL Normal 1.8-7.7 [facility] Comment on above: Performed By: #### C MP, CBC ####[address] Neutrophils/100 WBC (Bld) 68.0 % Normal . [facility] Comment on above: Performed By: #### C MP, CBC ####[address] NRBC% 0.1 /100{WBC} Normal 0-0.5 [facility] Comment on above: Performed By: #### C MP, CBC ####[place] [id number] [facility] Platelet mean volume (Bld) [Entitic vol] 9.2 fL Normal 6.6-10.1 [facility] Comment on above: Performed By: #### C MP, CBC ####[place] [id number] [facility] Platelets (Bld) [#/Vol] 109 10*3/uL Low 150-450 [facility] Comment on above: Performed By: #### C MP, CBC ####[place] [id number] [facility] RBC (Bld) [#/Vol] 2.64 10*6/uL Low 3.90-5.60 [facility] Comment on above: Performed By: #### C MP, CBC ####[place] [id number] [facility] WBC (Bld) [#/Vol] 4.6 10*3/uL Normal 4.1-10.5 [facility] Comment on above: Performed By: #### C MP, CBC ####[place] [id number] [facility] Comprehensive Metabolic Pane mana 01-05-2023 Albumin [Mass/Vol] 3.8 g/dL Normal 3.5-5.7 [facility] Comment on above: Performed By: #### C MP, CBC ####[place] [id number] [facility] Albumin/Globulin [Mass ratio] 1.8 {ratio} Normal [facility] Comment on above: Performed By: #### C MP, CBC ####[place] [id number] [facility] ALP [Catalytic activity/Vol] 86 U/L Normal 34-104 [facility] Comment on above: Performed By: #### C MP, CBC ####[address] [place] [address] [facility] ALT [Catalytic activity/Vol] 15 U/L Normal 7-52 [facility] Comment on above: Performed By: #### C MP, CBC ####[address] [address] [facility] Anion gap [Moles/Vol] 9.4 mmol/L Normal 6.0-15.0 [facility] Comment on above: Performed By: #### C MP, CBC ####[address] [address] [facility] AST [Catalytic activity/Vol] 16 U/L Normal 13-39 [facility] Comment on above: Performed By: #### C MP, CBC ####[address] [address] [facility] Bilirubin [Mass/Vol] 0.6 mg/dL Normal 0.3-1.0 [facility] Comment on above: Performed By: #### C MP, CBC ####[address] [address] [facility] Calcium [Mass/Vol] 8.6 mg/dL Normal 8.6-10.3 [facility] Comment on above: Performed By: #### C MP, CBC ####[address] [address] [facility] Chloride [Moles/Vol] 109 mmol/L High 98-107 [facility] Comment on above: Performed By: #### C MP, CBC ####[address] [address] [facility] CO2 [Moles/Vol] 25.5 mmol/L Normal 21.0-31.0 [facility] Comment on above: Performed By: #### C MP, CBC ####[address] [address] [facility] Creatinine [Mass/Vol] 1.33 mg/dL High 0.70-1.30 [facility] Comment on above: Performed By: #### C MP, CBC ####[address] [address] [facility] Creatinine Clr Calc Pharmacy 52.97 [facility] Comment on above: Result Comment: PERF ORMED BY:[place] [address] [address], [place] [phone] MEDICAL DIRECTORMEAGAN HARDING M.D. Performed By: #### C MP, CBC ####[place] [address] [place] [address] [facility] GFR/1.73 sq M.predicted MDRD (S/P/Bld) [Vol rate/Area] 55.053 mL/min/{1.73_m2} [facility] Comment on above: Performed By: #### C MP, CBC ####[place] [address] [place] [id number] [facility] Globulin (S) [Mass/Vol] 2.1 g/dL [facility] Comment on above: Performed By: #### C MP, CBC ####[place] [id number] [facility] Glucose [Mass/Vol] 84 mg/dL Normal 70-100 [facility] Comment on above: Result Comment: Concrete Glucose Reference Range is dependent on time and content of last meal. Glucose of more than 200 mg/dL in a nonstressed, ambulatory subject supports the diagnosis of Diabetes Mellitus. ADA recommended reference range Performed By: #### C MP, CBC ####[address] [address] [facility] Potassium [Moles/Vol] 3.9 mmol/L Normal 3.5-5.1 [facility] Comment on above: Performed By: #### C MP, CBC ####[place] [address] [place] [address] [facility] Protein [Mass/Vol] 5.9 g/dL Low 6.4-8.9 [facility] Comment on above: Performed By: #### C MP, CBC ####[place] [address] [place] [address] [facility] Sodium [Moles/Vol] 140 mmol/L Normal 136-145 [facility] Comment on above: Performed By: #### C MP, CBC ####[facility] [address] [place] [address] [facility] Urea nitrogen [Mass/Vol] 21 mg/dL Normal 7-25 [facility] Comment on above: Performed By: #### C MP, CBC ####[address] [address] [facility] Creatinine [Mass/volume] in UrineOrdered By: Price Crain on 01-05-2023 Creatinine (U) [Mass/Vol] 102.0 mg/dL 14.0-26.0 [facility] Dipstick and Microscopicon 0 01-05-2023 Appearance (U) Turbid Critically abnormal Clear [facility] Comment on above: Order Comment: Reaso n for Exam Chronic kidney disease, stage III (moderate);RINA (acute kidn Name Collection Type:: Clean-Voided Midstream Performed By: #### C UU, ADDONUAPLUS ####[address] [address] [place] Bacteria,Urine 4+ High None Seen [facility] Comment on above: Order Comment: Reaso n for Exam Chronic kidney disease, stage III (moderate);RINA (acute kidn Name Collection Type:: Clean-Voided Midstream Performed By: #### C UU, ADDONUAPLUS ####[address] [address] [place] Bilirubin,Urine Negative Normal Negative [facility] Comment on above: Order Comment: Reaso n for Exam Chronic kidney disease, stage III (moderate);RINA (acute kidn Name Collection Type:: Clean-Voided Midstream Performed By: #### C UU, ADDONUAPLUS ####[address] [address] [place] Color (U) Yellow Normal Yellow [facility] Comment on above: Order Comment: Reaso n for Exam Chronic kidney disease, stage III (moderate);RINA (acute kidn Name Collection Type:: Clean-Voided Midstream Performed By: #### C UU, ADDONUAPLUS ####[address] [address] [place] Glucose Ql (U) Normal Normal Normal [facility] Comment on above: Order Comment: Reaso n for Exam Chronic kidney disease, stage III (moderate);RINA (acute kidn Name Collection Type:: Clean-Voided Midstream Performed By: #### C UU, ADDONUAPLUS ####[address] [address] [facility] Hyaline Casts,Urine 0-8 Normal 0-8 [facility] Comment on above: Order Comment: Reaso n for Exam Chronic kidney disease, stage III (moderate);RINA (acute kidn Name Collection Type:: Clean-Voided Midstream Performed By: #### C UU, ADDONUAPLUS ####[address] Ketones Ql (U) Negative Normal Negative [facility] Comment on above: Order Comment: Reaso n for Exam Chronic kidney disease, stage III (moderate);RINA (acute kidn Name Collection Type:: Clean-Voided Midstream Performed By: #### C UU, ADDONUAPLUS ####[address] [address] [facility] Leukocyte esterase Test strip Ql (U) 4+ High Negative [facility] Comment on above: Order Comment: Reaso n for Exam Chronic kidney disease, stage III (moderate);RINA (acute kidn Name Collection Type:: Clean-Voided Midstream Performed By: #### C UU, ADDONUAPLUS ####[place] [id number] [facility] Nitrite,Urine Negative Normal Negative [facility] Comment on above: Order Comment: Reaso n for Exam Chronic kidney disease, stage III (moderate);RINA (acute kidn Name Collection Type:: Clean-Voided Midstream Performed By: #### C UU, ADDONUAPLUS ####[place] [id number] [facility] Occult Blood,Urine 3+ High Negative [facility] Comment on above: Order Comment: Reaso n for Exam Chronic kidney disease, stage III (moderate);RINA (acute kidn Name Collection Type:: Clean-Voided Midstream Result Comment: PERF ORMED BY:[address] [place], [place] [phone] MEDICAL DIRECTORMEAGAN HARDING M.D. Performed By: #### C UU, ADDONUAPLUS ####[address] [address] [facility] pH (U) 6.0 [pH] Normal 5.0-9.0 [facility] Comment on above: Order Comment: Reaso n for Exam Chronic kidney disease, stage III (moderate);RINA (acute kidn Name Collection Type:: Clean-Voided Midstream Performed By: #### C UU, ADDONUAPLUS ####[place] [id number] [facility] Protein (U) [Mass/Vol] 100 mg/dL High Negative [facility] Comment on above: Order Comment: Reaso n for Exam Chronic kidney disease, stage III (moderate);RINA (acute kidn Name Collection Type:: Clean-Voided Midstream Performed By: #### C UU, ADDONUAPLUS ####[place] [id number] [facility] RBC LM.HPF (Urine sed) [#/Area] 0 /[HPF] Normal 0-4 [facility] Comment on above: Order Comment: Reaso n for Exam Chronic kidney disease, stage III (moderate);RINA (acute kidn Name Collection Type:: Clean-Voided Midstream Performed By: #### C UU, ADDONUAPLUS ####[place] [id number] [facility] Specificy [place],Urine 1.016 Normal 1.001-1.030 [facility] Comment on above: Order Comment: Reaso n for Exam Chronic kidney disease, stage III (moderate);RINA (acute kidn Name Collection Type:: Clean-Voided Midstream Performed By: #### C UU, ADDONUAPLUS ####[address] [address] [facility] Squamous Epithelial Cell,Urine None Seen Normal 0-2 [facility] Comment on above: Order Comment: Reaso n for Exam Chronic kidney disease, stage III (moderate);RINA (acute kidn Name Collection Type:: Clean-Voided Midstream Performed By: #### C UU, ADDONUAPLUS ####[place] [address] [place] [id number] [facility] Urobilinogen,Urine Normal Normal Normal [facility] Comment on above: Order Comment: Reaso n for Exam Chronic kidney disease, stage III (moderate);RINA (acute kidn Name Collection Type:: Clean-Voided Midstream Performed By: #### C UU, ADDONUAPLUS ####[address] WBC,Urine Innumerable High 0-4 [facility] Comment on above: Order Comment: Reaso n for Exam Chronic kidney disease, stage III (moderate);RINA (acute kidn Name Collection Type:: Clean-Voided Midstream Performed By: #### C UU, ADDONUAPLUS ####[address] Yeast,Urine None Seen Normal None Seen [facility] Comment on above: Order Comment: Reaso n for Exam Chronic kidney disease, stage III (moderate);RINA (acute kidn Name Collection Type:: Clean-Voided Midstream Result Comment: PERF ORMED BY:[address] [place], [place] [id number] MEDICAL ANYA HARDING M.D. Performed By: #### C UU, ADDONUAPLUS ####[place] [id number] [facility] Ferritinon 01-05-2023 Ferritin [Mass/Vol] 329.6 ng/mL Normal 23.9-336.2 [facility] Comment on above: Order Comment: Reaso n for Exam Chronic kidney disease, stage III (moderate);RINA (acute kidn Performed By: #### M G, URIC, FOL, [id number], CONOR, PHOS, FE and TIBC ####[place] [id number] [facility] Ferritin [Mass/volume] in Se rum or PlasmaOrdered By: Price Crain on 01-05-2023 Ferritin [Mass/Vol] 329.6 ng/mL 23.9-336.2 [facility] Folateon 01-05-2023 Folate 47.0 ng/mL Normal >5.9 [facility] Comment on above: Order Comment: Reaso n for Exam Chronic kidney disease, stage III (moderate);RINA (acute kidn Result Comment: Christi te reference range: >5.9 ng/ml The WHO technical consultation on folate and vitamin b12 deficiencies has determined that folate concentrations less than 4 ng/ml are considered deficient. Performed By: #### M G, URIC, FOL, [id number], CONOR, PHOS, FE and TIBC ####[facility] [id number] Folate [Mass/volume] in Seru m or PlasmaOrdered By: Price Crain on 01-05-2023 Folate [Mass/Vol] 47.0 ng/mL >5.9 [facility] Comment on above: Folate reference ran ge: >5.9 ng/mlThe WHO technical consultation on folate and vitamin [id number] has determined that folate concentrations lessthan 4 ng/ml are considered deficient. Free K+L LT Chains, Qn, Son 01-05-2023 Free [place] Light Chains, S 20.3 mg/L High 3.3-19.4 [facility] Comment on above: Performed By: #### I MM RADHA, KAPPA, SPE ####[facility] ,#### LDH ####[facility] [place] [id number] [facility] Free Lambda Light Chains, S 14.0 mg/L Normal 5.7-26.3 [facility] Comment on above: Performed By: #### I MM RADHA, KAPPA, SPE ####[facility] ,#### LDH ####[place] [address] [place] [id number] [facility] Mal[place]/Lambda Ratio, S 1.45 Normal 0.26-1.65 [facility] Comment on above: Result Comment: Perf ormed at: [employer] [facility] [address] [place], [place] [id number] Hunting Guide: Melchor Agrawal PhD, Phone: [phone] BY:[facility] [place], [place] [phone] MEDICAL DIRECTORMEAGAN HARDING M.D. Performed By: #### I MM RADHA, KAPPA, SPE ####[facility] ,#### LDH ####[facility] [place] [address] Gamma globulin/Protein.total in 24 hour Urine by ElectrophoresisOrdered By: Brook Huddleston on 01-05-2023 Gamma globulin Elph (24H U) [Mass fraction] 19.2 % . [facility] IgA [Mass/volume] in Serum o r PlasmaOrdered By: Brook Huddleston on 01-05-2023 IgA [Mass/Vol] 102 mg/dL 61-437 [facility] IgG [Mass/volume] in Serum o r PlasmaOrdered By: Brook Huddleston on 01-05-2023 IgG [Mass/Vol] 720 mg/dL [phone] [facility] IgM [Mass/volume] in Serum o r PlasmaOrdered By: Brook Huddleston on 01-05-2023 IgM [Mass/Vol] 38 mg/dL 15-143 [facility] Comment on above: Performed at: [employer] - [address] [id number] Director: Melchor Agrawal PhD, Phone: [phone] Immunofixation for UrineOrde red By: Brook Huddleston on 01-05-2023 Interpretation Immunofixation (U) [Interp] See comment . [facility] Comment on above: Immunofixation shows IgG monoclonal protein with lambdalight chain specificity.[place] appears asymmetrical.Performed at: [employer] [facility] [address] [place], [place] [id number] Director: Melchor Argawal PhD, Phone: [phone] Immunofixation, (JOSE C), Urine on 01-05-2023 Immunofixation, (JOSE C), Urine Abnormal . [facility] Comment on above: Result Comment: Immu nofixation shows IgG monoclonal protein with lambda light chain specificity. [place] appears asymmetrical. Performed at: [employer] [facility] [address] [id number] Hunting Guide: Melchor Agrawal PhD, Phone: [phone] Performed By: #### U PE RAND, JOSE C,URINE ####[facility] , Immunoglobulin light chains. kappa.free [Mass/volume] in SerumOrdered By: Brook Huddleston on 01-05-2023 Immunoglobulin light chains.kappa.free (S) [Mass/Vol] 20.3 mg/L 3.3-19.4 [facility] Immunoglobulin light chains. kappa.free/Immunoglobulin light chains.lambda.free [MassOrdered By: Brook Huddleston on 01-05-2023 Immunoglobulin light chains.kappa.free/Immu noglobulin light chains.lambda.free (S) [Mass ratio] 1.45 0.26-1.65 [facility] Comment on above: Performed at: [employer] [facility] [address] [id number] Director: Melchor Agrawal PhD, Phone: [phone] Immunoglobulin light chains. lambda.free [Mass/volume] in Serum or PlasmaOrdered By: Brook Huddleston on 01-05-2023 Immunoglobulin light chains.lambda.free [Mass/Vol] 14.0 mg/L 5.7-26.3 [facility] Immunoglobulins A/G/M, Qn, S yue 01-05-2023 Immunoglobulin A, Serum 102 mg/dL Normal 61-437 [facility] Comment on above: Performed By: #### I MM RADHA, KAPPA, SPE ####[facility] ,#### LDH ####[facility] [id number] [place] [address] [facility] Immunoglobulin G 720 mg/dL Normal 603-1613 [facility] Comment on above: Performed By: #### I MM RADHA, KAPPA, SPE ####[facility] ,#### LDH ####[place] [id number] [facility] Immunoglobulin M, Serum 38 mg/dL Normal 15-143 [facility] Comment on above: Result Comment: Perf ormed at: - [facility] [address] [id number] Hunting Guide: Melchor Agrawal PhD, Phone: [phone] Performed By: #### I MM RADHA, KAPPA, SPE ####[facility] ,#### LDH ####[place] [id number] [facility] Iron [Mass/volume] in Serum or PlasmaOrdered By: Price Crain on 01-05-2023 Iron [Mass/Vol] 104 ug/dL 50-212 [facility] Iron and TIBC Profileon 12-16 % Iron Saturation 41.9 % Normal 20-50 [facility] Comment on above: Order Comment: Reaso n for Exam Chronic kidney disease, stage III (moderate);RINA (acute kidn Performed By: #### M G, URIC, FOL, [id number], CONOR, PHOS, FE and TIBC ####[place] [id number] [facility] Iron [Mass/Vol] 104 ug/dL Normal 50-212 [facility] Comment on above: Order Comment: Reaso n for Exam Chronic kidney disease, stage III (moderate);RINA (acute kidn Performed By: #### M G, URIC, FOL, [id number], CONOR, PHOS, FE and TIBC ####[place] [id number] [facility] Total Iron Binding Capacity 248 ug/dL Low 255-450 [facility] Comment on above: Order Comment: Reaso n for Exam Chronic kidney disease, stage III (moderate);RINA (acute kidn Performed By: #### M G, URIC, FOL, [id number], CONOR, PHOS, FE and TIBC ####[address] [address] [facility] Transferrin [Mass/Vol] 177 mg/dL Low 203-362 [facility] Comment on above: Order Comment: Reaso n for Exam Chronic kidney disease, stage III (moderate);RINA (acute kidn Performed By: #### M G, URIC, FOL, [id number], CONOR, PHOS, FE and TIBC ####[facility] [id number] [place] [id number] [facility] Iron binding capacity [Mass/ volume] in Serum or PlasmaOrdered By: Price Crain on 01-05-2023 Iron binding capacity [Mass/Vol] 248 ug/dL 255-450 [facility] Iron saturation [Mass Fracti on] in Serum or PlasmaOrdered By: Price Crain on 01-05-2023 Iron saturation [Mass fraction] 41.9 % 20-50 [facility] Ketones Auto test strip (U) [Mass/Vol]Ordered By: Price Crain on 01-05-2023 Ketones (U) [Mass/Vol] Negative Negative Fi [facility] LDH Lactate Dehydrogenaseon 01-05-2023 LDH Lactate Dehydrogenase 158 U/L Normal 140-271 [facility] Comment on above: Result Comment: PERF ORMED BY:[address] [place], [place] [phone] MEDICAL DIRECTORMEAGAN HARDING M.D. Performed By: #### I MM RADHA, KAPPA, SPE ####[facility] ,#### LDH ####[place] [id number] [facility] Laboratory - UrinalysisOrder ed By: Price Crain on 01-05-2023 Hyaline casts LM Ql (Urine sed) 0-8 [LPF] 0-8 [facility] Lactate dehydrogenase [Enzym atic activity/volume] in Serum or Plasma by Lactate to pyOrdered By: Brook Huddleston on 01-05-2023 LDH Lactate to pyruvate reaction [Catalytic activity/Vol] 158 U/L 140-271 [facility] Magnesiumon 01-05-2023 Magnesium [Mass/Vol] 1.9 mg/dL Normal 1.9-2.7 [facility] Comment on above: Order Comment: Reaso n for Exam Chronic kidney disease, stage III (moderate);RINA (acute kidn Performed By: #### M G, URIC, FOL, [id number], CONOR, PHOS, FE and TIBC ####[facility] [id number] [place] [address] [facility] Magnesium [Mass/volume] in S valeria or PlasmaOrdered By: Price Crain on 01-05-2023 Magnesium [Mass/Vol] 1.9 mg/dL 1.9-2.7 [facility] Nitrite Test strip Ql (U)Ord ered By: Price Crain on 01-05-2023 Nitrite Ql (U) Negative Negative [facility] No Panel InformationOrdered By: Brook Huddleston on 01-05-2023 Urine Random Prot Electrophor Note See comment . [facility] Comment on above: Protein electrophore sis scan will follow via computer,mail, or monument letterer delivery.Performed at: [place] [id number] Director: Melchor Agrawal PhD, Phone: [phone] Protein Electrophoresis M-Anselmo Not observed g/dL Not Observed [facility] Protein Electrophoresis Note See comment . [facility] Comment on above: Protein electrophore sis scan will follow via computer,mail, or monument letterer delivery. Parathyrin.intact [Mass/volu me] in Serum or PlasmaOrdered By: Price Crain on 01-05-2023 Parathyrin.intact [Mass/Vol] 70.1 pg/mL [facility] Parathyroid Hormone Intacton 01-05-2023 Parathyroid Hormone Intact 70.1 pg/mL Normal [facility] Comment on above: Order Comment: Reaso n for Exam Chronic kidney disease, stage III (moderate);RINA (acute kidn Result Comment: PERF ORMED BY:[facility] [place], [place] [phone] MEDICAL DIRECTORMEAGAN HARDING M.D. Performed By: #### P TH ####[facility] [id number] [place] [address] [place] Phosphate [Mass/volume] in S valeria or PlasmaOrdered By: Price Crain on 01-05-2023 Phosphate [Mass/Vol] 2.9 mg/dL 3.7-7.2 [facility] Phosphoruson 01-05-2023 Phosphate [Mass/Vol] 2.9 mg/dL Low 3.7-7.2 [facility] Comment on above: Order Comment: Reaso n for Exam Chronic kidney disease, stage III (moderate);RINA (acute kidn Performed By: #### M G, URIC, FOL, [id number], CONOR, PHOS, FE and TIBC ####[address] [address] [facility] Protein Auto test strip (U) [Mass/Vol]Ordered By: Price Crain on 01-05-2023 Protein (U) [Mass/Vol] 100 mg/dL Negative [facility] Protein Creat Ratio Ur Rando mon 01-05-2023 Creatinine, Urine (Random) 102.0 mg/dL High 14.0-26.0 [facility] Comment on above: Order Comment: Reaso n for Exam Chronic kidney disease, stage III (moderate);RINA (acute kidn Performed By: #### P ROCRERAT ####[address] [address] [facility] Protein (U) [Mass/Vol] 85 mg/dL High 0-9 [facility] Comment on above: Order Comment: Reaso n for Exam Chronic kidney disease, stage III (moderate);RINA (acute kidn Performed By: #### P ROCRERAT ####[address] [address] [facility] Urine Protein/Creatinine Ratio 833 mg/g{Cre} High 0-200 [facility] [facility] Comment on above: Order Comment: Reaso n for Exam Chronic kidney disease, stage III (moderate);RINA (acute kidn Result Comment: PERF ORMED BY:[address] [place], [place] [phone] MEDICAL DIRECTORMEAGAN HARDING M.D. Performed By: #### P ROCRERAT ####[address] [address] [facility] Protein Electro, Random Urin yovany 01-05-2023 Albumin, Urine 50.4 % Normal . [facility] Comment on above: Performed By: #### U PE RAND, JOSE C,URINE ####[facility] , Jtaeq-9-Vnerwejr, Urine 4.7 % Normal . [facility] Comment on above: Performed By: #### U PE RAND, JOSE C,URINE ####[facility] , Xlhap-6-Akaqtndn, Urine 11.1 % Normal . [facility] Comment on above: Performed By: #### U PE RAND, JOSE C,URINE ####[facility] , Beta Globulin, Urine 14.6 % Normal . [facility] Comment on above: Performed By: #### U PE RAND, JOSE C,URINE ####[facility] , Gamma Globulin, Urine 19.2 % Normal . [facility] Comment on above: Performed By: #### U PE RAND, JOSE C,URINE ####[facility] , M-Anselmo % Not Observed Normal Not Observed [facility] Comment on above: Performed By: #### U PE RAND, JOSE C,URINE ####[facility] , Please Note: Normal . [facility] Comment on above: Result Comment: Prot ein electrophoresis scan will follow via computer, mail, or monument letterer delivery. Performed at: - [facility] [id number] Hunting Guide: Melchor Agrawal PhD, Phone: [phone] BY:[place] [address] [address] [place], [place] [phone] MEDICAL DIRECTORMEAGAN HARDING M.D. Performed By: #### U PE RAND, JOSE C,URINE ####[facility] , Protein (U) [Mass/Vol] 85.2 mg/dL Normal Not Estab. [facility] Comment on above: Performed By: #### U PE RAND, JOSE C,URINE ####[facility] , Protein Electrophoresis, Ser umon 01-05-2023 Albumin [Mass/Vol] 3.5 g/dL Normal 2.9-4.4 [facility] Comment on above: Performed By: #### I MM RADHA, KAPPA, SPE ####[facility] ,#### LDH ####[address] Albumin/Globulin [Mass ratio] 1.3 {ratio} Normal 0.7-1.7 [facility] Comment on above: Performed By: #### I MM RADHA, KAPPA, SPE ####[facility] ,#### LDH ####[address] Qiihl-5-Mljfeust 0.3 g/dL Normal 0.0-0.4 [facility] Comment on above: Performed By: #### I MM RADHA, KAPPA, SPE ####[facility] ,#### LDH ####[address] Tocst-8-Gvbjeknx 0.8 g/dL Normal 0.4-1.0 [facility] Comment on above: Performed By: #### I MM RADHA, KAPPA, SPE ####[facility] ,#### LDH ####[address] Beta Globulin 0.9 g/dL Normal 0.7-1.3 [facility] Comment on above: Performed By: #### I MM RADHA, KAPPA, SPE ####[facility] ,#### LDH ####[address] Gamma Globulin 0.7 g/dL Normal 0.4-1.8 [facility] Comment on above: Performed By: #### I MM RADHA, KAPPA, SPE ####[facility] ,#### LDH ####[address] Globulin (S) [Mass/Vol] 2.7 g/dL Normal 2.2-3.9 [facility] Comment on above: Performed By: #### I MM RADHA, KAPPA, SPE ####[facility] ,#### LDH ####[address] M-Anselmo Not Observed Normal Not Observed [facility] Comment on above: Performed By: #### I MM RADHA, KAPPA, SPE ####[facility] ,#### LDH ####[address] Protein [Mass/Vol] 6.2 g/dL Normal 6.0-8.5 [facility] Comment on above: Performed By: #### I MM RADHA, KAPPA, SPE ####[facility] ,#### LDH ####[address] SPE-Note Normal . [facility] Comment on above: Result Comment: Prot ein electrophoresis scan will follow via computer, mail, or monument letterer delivery. Performed By: #### I MM RADHA, KAPPA, SPE ####[facility] ,#### LDH ####[address] Protein [Mass/volume] in Ser um or PlasmaOrdered By: Brook Huddleston on 01-05-2023 Protein [Mass/Vol] 6.2 g/dL 6.0-8.5 [facility] Protein [Mass/volume] in Uri neOrdered By: Price Crain on 01-05-2023 Protein (U) [Mass/Vol] 85 mg/dL 0-9 [facility] Protein [Mass/volume] in Uri neOrdered By: Brook Huddleston on 01-05-2023 Protein (U) [Mass/Vol] 85.2 mg/dL Not Estab. [facility] Protein.monoclonal/Protein.t otal in 24 hour Urine by ElectrophoresisOrdered By: Brook Huddleston on 01-05-2023 Protein.monoclonal Elph (24H U) [Mass fraction] Not observed % Not Observed [facility] Serum globulin measurement ( mass/volume)Ordered By: Brook Huddleston on 01-05-2023 Globulin (S) [Mass/Vol] 2.7 g/dL 2.2-3.9 [facility] Serum or plasma albumin/glob ulin mass ratioOrdered By: Brook Huddleston on 01-05-2023 Albumin/Globulin [Mass ratio] 1.3 {ratio} 0.7-1.7 [facility] Serum or plasma alpha 1 glob ulin measurement by electrophoresis (mass/volume)Ordered By: Brook Huddleston on 01-05-2023 Alpha 1 globulin Elph [Mass/Vol] 0.3 g/dL 0.0-0.4 [facility] Serum or plasma alpha 2 glob ulin measurement by electrophoresis (mass/volume)Ordered By: Brook Huddleston on 01-05-2023 Alpha 2 globulin Elph [Mass/Vol] 0.8 g/dL 0.4-1.0 [facility] Serum or plasma beta globuli n measurement by electrophoresis (mass/volume)Ordered By: Brook Huddleston on 01-05-2023 Beta globulin Elph [Mass/Vol] 0.9 g/dL 0.7-1.3 [facility] Serum or plasma gamma globul in measurement by electrophoresis (mass/volume)Ordered By: Brook Huddleston on 01-05-2023 Gamma globulin Elph [Mass/Vol] 0.7 g/dL 0.4-1.8 [facility] Specific gravity Auto test s trip (U) [Rel density]Ordered By: Price Crain on 01-05-2023 Specific gravity (U) [Rel density] 1.016 1.001-1.030 [facility] Squamous epithelial cells de tection in urine sediment by light microscopyOrdered By: Price Crain on 01-05-2023 Epithelial cells.squamous LM Ql (Urine sed) None seen [HPF] 0-2 [facility] Transferrin [Mass/volume] in Serum or PlasmaOrdered By: Price Crain on 01-05-2023 Transferrin [Mass/Vol] 177 mg/dL 203-362 [facility] Urate [Mass/volume] in Serum or PlasmaOrdered By: Price Crain on 01-05-2023 Urate [Mass/Vol] 4.7 mg/dL 2.4-7.6 [facility] Uric Acidon 01-05-2023 Urate [Mass/Vol] 4.7 mg/dL Normal 2.4-7.6 [facility] Comment on above: Order Comment: Reaso n for Exam Chronic kidney disease, stage III (moderate);RINA (acute kidn Performed By: #### M G, URIC, FOL, [id number], CONOR, PHOS, FE and TIBC ####[facility] [id number] Urine Cultureon 01-05-2023 Bacteria identified Cx Nom (U) Normal [facility] Comment on above: Performed By: #### C UU, ADDONUAPLUS ####[facility] [id number] Urine alpha 1 globulin/total protein by electrophoresisOrdered By: Brook Huddleston on 01-05-2023 Alpha 1 globulin Elph (U) [Mass fraction] 4.7 % . [facility] Urine alpha 2 globulin/total protein ratio by electrophoresisOrdered By: Brook Huddleston on 01-05-2023 Alpha 2 globulin Elph (U) [Mass fraction] 11.1 % . [facility] Urine bacteria detection by automated methodOrdered By: Price Crain on 01-05-2023 Bacteria Auto Ql (U) 4+ None Seen [facility] Urine beta globulin measurem ent by electrophoresis (mass/volume)Ordered By: Brook Huddleston on 01-05-2023 Beta globulin Elph (U) [Mass/Vol] 14.6 % . [facility] Urine clarity by refractomet ry automatedOrdered By: Price Crain on 01-05-2023 Clarity Refractometry automated (U) Turbid Clear [facility] Urine culture routineOrdered By: Price Crain on 01-05-2023 Bacteria identified Cx Nom (U) Strep agalactiae - (group b) [facility] Bacteria identified Cx Nom (U) Stenotrophomonas maltophilia [facility] Urine glucose measurement by automated test strip (mass/volume)Ordered By: Price Crain on 01-05-2023 Glucose Auto test strip (U) [Mass/Vol] Normal mg/dL Normal [facility] Urine hemoglobin detection b y automated test stripOrdered By: Price Crain on 01-05-2023 Hemoglobin Auto test strip Ql (U) 3+ Negative [facility] Urine leukocyte esterase det ection by automated test stripOrdered By: Price Crain on 01-05-2023 Leukocyte esterase Auto test strip Ql (U) 4+ Negative [facility] Urine protein/creatinine rat ioOrdered By: Price Crain on 01-05-2023 Protein/Creatinine (U) [Ratio] 833 mg/g{Cre} 0-200 [facility] Urobilinogen Auto test strip (U) [Mass/Vol]Ordered By: Price Crain on 01-05-2023 Urobilinogen (U) [Mass/Vol] Normal mg/dL Normal [facility] Vitamin D 25 Hydroxy Totalon 01-05-2023 Vitamin D 25 Hydroxy Total 40.8 ng/mL Normal 30-100 [facility] Comment on above: Order Comment: Reaso n for Exam Chronic kidney disease, stage III (moderate);RINA (acute kidn Result Comment: TOOTIE MIN D STATUS 25([place])VITAMIN D RANGE (ng/mL) Deficient <20 Insufficient 20 to <30 Sufficient 30 to 100 Reference: Dieudonne MF,Brendon NC, Estrella CARTER, et al. Evaluation,treatment, and prevention of vitamin D deficiency; an Endocrine Society clinical practice guideline. JCEM. 2010; 96(7):1911-30.PERFORMED BY:[place] [address] [address] [place], [place] [phone] MEDICAL DIRECTORMEAGAN HARDING M.D. Performed By: #### M G, URIC, FOL, [id number], CONOR, PHOS, FE and TIBC ####[facility] [place] [address] [facility] Vitamin D+Metabolites [Mass/ volume] in Serum or PlasmaOrdered By: Price Crian on 01-05-2023 Vitamin D+Metabolites [Mass/Vol] 40.8 ng/mL 30-100 [facility] Comment on above: VITAMIN D STATUS 25( [place])VITAMIN D RANGE (ng/mL) Deficient <20 Insufficient 20 to <30Sufficient 30 to 100Reference: Dieudonne MF,Brendon NC, Estrella CARTER, et al. Evaluation,treatment, and prevention of vitamin D deficiency; an Endocrine Society clinical practice guideline. JCEM. 2010; 96(7):1911-30. Yeast detection in urine sed iment by light microscopyOrdered By: Price Crian on 01-05-2023 Yeast LM Ql (Urine sed) None seen [HPF] None Seen [facility] pH Auto test strip (U)Ordere d By: Price Crain on 01-05-2023 pH (U) 6.0 [pH] 5.0-9.0 [facility] Complete Blood Count Auto Di ffon 12-25-2022 Basophils (Bld) [#/Vol] 0.0 10*3/uL Normal 0.0-0.2 [facility] Comment on above: Result Comment: PERF ORMED BY:[facility] [place], [place] [phone] MEDICAL DIRECTORMEAGAN HARDING M.D. Performed By: #### C MP, CBC ####[facility] [place] [address] [facility] Basophils/100 WBC (Bld) 0.4 % Normal . [facility] Comment on above: Performed By: #### C MP, CBC ####[facility] [place] [address] [place] Eosinophils (Bld) [#/Vol] 0.3 10*3/uL Normal 0.0-0.45 [facility] Comment on above: Performed By: #### C MP, CBC ####[facility] [place] [address] [facility] Eosinophils/100 WBC (Bld) 7.0 % Normal . [facility] Comment on above: Performed By: #### C MP, CBC ####[address] Erythrocyte distribution width (RBC) [Ratio] 16.2 % High 12.0-14.8 [facility] Comment on above: Performed By: #### C MP, CBC ####[address] Hematocrit (Bld) [Volume fraction] 30.9 % Low 38.8-50.0 [facility] Comment on above: Performed By: #### C MP, CBC ####[address] Hemoglobin (Bld) [Mass/Vol] 10.3 g/dL Low 13.0-17.0 [facility] Comment on above: Performed By: #### C MP, CBC ####[address] Lymphocytes (Bld) [#/Vol] 0.9 10*3/uL Low 1.00-4.8 [facility] Comment on above: Performed By: #### C MP, CBC ####[address] Lymphocytes/100 WBC (Bld) 18.3 % Normal . [facility] Comment on above: Performed By: #### C MP, CBC ####[address] MCH (RBC) [Entitic mass] 37.0 pg High 27.5-35.2 [facility] Comment on above: Performed By: #### C MP, CBC ####[address] MCV (RBC) [Entitic vol] 111.1 fL High 83.5-101 [facility] Comment on above: Performed By: #### C MP, CBC ####[address] Mean Corpuscular HGB Conc 33.3 g/dL Normal 32.5-35.6 [facility] Comment on above: Performed By: #### C MP, CBC ####[address] Monocytes (Bld) [#/Vol] 0.3 10*3/uL Normal 0.0-0.8 [facility] Comment on above: Performed By: #### C MP, CBC ####[address] Monocytes/100 WBC (Bld) 6.4 % Normal . [facility] Comment on above: Performed By: #### C MP, CBC ####[address] Neutrophils (Bld) [#/Vol] 3.2 10*3/uL Normal 1.8-7.7 [facility] Comment on above: Performed By: #### C MP, CBC ####[address] Neutrophils/100 WBC (Bld) 67.9 % Normal . [facility] Comment on above: Performed By: #### C MP, CBC ####[address] NRBC% 0.2 /100{WBC} Normal 0-0.5 [facility] Comment on above: Performed By: #### C MP, CBC ####[address] Platelet mean volume (Bld) [Entitic vol] 9.4 fL Normal 6.6-10.1 [facility] Comment on above: Performed By: #### C MP, CBC ####[place] [id number] [facility] Platelets (Bld) [#/Vol] 116 10*3/uL Low 150-450 [facility] Comment on above: Performed By: #### C MP, CBC ####[address] RBC (Bld) [#/Vol] 2.78 10*6/uL Low 3.90-5.60 [facility] Comment on above: Performed By: #### C MP, CBC ####[place] [id number] [facility] WBC (Bld) [#/Vol] 4.8 10*3/uL Normal 4.1-10.5 [facility] Comment on above: Performed By: #### C MP, CBC ####[place] [id number] [facility] Comprehensive Metabolic Pane mana 12-25-2022 Albumin [Mass/Vol] 3.8 g/dL Normal 3.5-5.7 [facility] Comment on above: Performed By: #### C MP, CBC ####[address] Albumin/Globulin [Mass ratio] 1.7 {ratio} Normal [facility] Comment on above: Performed By: #### C MP, CBC ####[place] [id number] [facility] ALP [Catalytic activity/Vol] 87 U/L Normal 34-104 [facility] Comment on above: Performed By: #### C MP, CBC ####[place] [id number] [facility] ALT [Catalytic activity/Vol] 15 U/L Normal 7-52 [facility] Comment on above: Performed By: #### C MP, CBC ####[place] [id number] [facility] Anion gap [Moles/Vol] 11.0 mmol/L Normal 6.0-15.0 [facility] Comment on above: Performed By: #### C MP, CBC ####[place] [id number] [facility] AST [Catalytic activity/Vol] 15 U/L Normal 13-39 [facility] Comment on above: Performed By: #### C MP, CBC ####[place] [id number] [facility] Bilirubin [Mass/Vol] 0.5 mg/dL Normal 0.3-1.0 [facility] Comment on above: Performed By: #### C MP, CBC ####[address] [address] [facility] Calcium [Mass/Vol] 8.4 mg/dL Low 8.6-10.3 [facility] Comment on above: Performed By: #### C MP, CBC ####[address] [address] [facility] Chloride [Moles/Vol] 105 mmol/L Normal 98-107 [facility] Comment on above: Performed By: #### C MP, CBC ####[place] [id number] [facility] CO2 [Moles/Vol] 22.3 mmol/L Normal 21.0-31.0 [facility] Comment on above: Performed By: #### C MP, CBC ####[place] [id number] [facility] Creatinine [Mass/Vol] 1.52 mg/dL High 0.70-1.30 [facility] Comment on above: Performed By: #### C MP, CBC ####[place] [id number] [facility] Creatinine Clr Calc Pharmacy 46.35 [facility] Comment on above: Result Comment: PERF ORMED BY:[address] [place], [place] [phone] MEDICAL ANYA HARDING M.D. Performed By: #### C MP, CBC ####[place] [id number] [facility] GFR/1.73 sq M.predicted MDRD (S/P/Bld) [Vol rate/Area] 46.902 mL/min/{1.73_m2} [facility] Comment on above: Performed By: #### C MP, CBC ####[place] [id number] [facility] Globulin (S) [Mass/Vol] 2.3 g/dL [facility] Comment on above: Performed By: #### C MP, CBC ####[facility] [place] [address] [facility] Glucose [Mass/Vol] 272 mg/dL High 70-100 [facility] Comment on above: Result Comment: Concrete Glucose Reference Range is dependent on time and content of last meal. Glucose of more than 200 mg/dL in a nonstressed, ambulatory subject supports the diagnosis of Diabetes Mellitus. ADA recommended reference range Performed By: #### C MP, CBC ####[facility] [id number] [place] [address] [facility] Potassium [Moles/Vol] 4.3 mmol/L Normal 3.5-5.1 [facility] Comment on above: Performed By: #### C MP, CBC ####[place] [address] [place] [address] [facility] Protein [Mass/Vol] 6.1 g/dL Low 6.4-8.9 [facility] Comment on above: Performed By: #### C MP, CBC ####[address] [address] [facility] Sodium [Moles/Vol] 134 mmol/L Low 136-145 [facility] Comment on above: Performed By: #### C MP, CBC ####[facility] [place] [address] [facility] Urea nitrogen [Mass/Vol] 24 mg/dL Normal 7-25 [facility] Comment on above: Performed By: #### C MP, CBC ####[place] [address] [place] [address] [facility] Lab Reportson 12-19-2022 Lab Reports [id number] 0CD:[address] [facility] Patient Educationon 12-20-19 23 Patient Education Urology Hydronephrosis Hydronephrosis is the swelling of one or both kidneys due to a blockage that stops urine from flowing out of the body. Kidneys filter waste from the blood and produce urine. This condition can lead to kidney failure and may become life-threatening if not treated promptly. What are the causes? In infants and children, common causes include problems that occur when a baby is developing in the womb. These can include problems in the kidneys or in the tubes that drain urine into the bladder (ureters). In adults, common causes include: ? Kidney stones. ? . ? A tumor or cyst in the abdomen or pelvis. ? An enlarged prostate gland. Other causes include: ? Bladder infection. ? Scar tissue from a previous surgery or injury. ? A blood clot. ? Cancer of the prostate, bladder, uterus, ovary, or colon. What are the signs or symptoms? Symptoms of this condition include: ? Pain or discomfort in your side (flank) or abdomen. ? Swelling in your abdomen. ? Nausea and vomiting. ? Fever. ? Pain when passing urine. ? Feelings of urgency when you need to urinate. ? Urinating more often than normal. In some cases, you may not have any symptoms. How is this diagnosed? This condition may be diagnosed based on: ? Your symptoms and medical history. ? A physical exam. ? Blood and urine tests. ? Imaging tests, such as an ultrasound, CT scan, or MRI. ? A procedure to look at your urinary tract and bladder by inserting a scope into the urethra (cystoscopy). How is this treated? Treatment for this condition depends on where the blockage is, how long it has been there, and what caused it. The goal of treatment is to remove the blockage. Treatment may include: ? Antibiotic medicines to treat or prevent infection. ? A procedure to place a small, thin tube (stent) into a blocked ureter. The stent will keep the ureter open so that urine can drain through it. ? A nonsurgical procedure that crushes kidney stones with shock waves (extracorporeal shock wave lithotripsy). ? If kidney failure occurs, treatment may include dialysis or a kidney transplant. Follow these instructions at home: ? Take edpz-vgt-ksacclb and prescription medicines only as told by your health care provider. ? If you were prescribed an antibiotic medicine, take it exactly as told by your health care provider. Do not stop taking the antibiotic even if you start to feel better. ? Rest and return to your normal activities as told by your health care provider. Ask your health care provider what activities are safe for you. ? Drink enough fluid to keep your urine pale yellow. ? Keep all follow-up visits. This is important. Contact a health care provider if: ? You continue to have symptoms after treatment. ? You develop new symptoms. ? Your urine becomes cloudy or bloody. ? You have a fever. Get help right away if: ? You have severe flank or abdominal pain. ? You cannot drink fluids without vomiting. Summary ? Hydronephrosis is the swelling of one or both kidneys due to a blockage that stops urine from flowing out of the body. ? Hydronephrosis can lead to kidney failure and may become life-threatening if not treated promptly. ? The goal of treatment is to remove the blockage. It may include a procedure to insert a stent into a blocked ureter, a procedure to break up kidney stones, or taking antibiotic medicines. ? Follow your health care provider's instructions for taking care of yourself at home, including instructions about drinking fluids, taking medicines, and limiting activities. This information is not intended to replace advice given to you by your health care provider. Make sure you discuss any questions you have with your health care provider. Document Revised: 11/20/2020 Document Reviewed: 11/20/2020 [employer] Patient Education ? 2022 [employer] Normal [facility] RAD - Ultrasound Reporton RAD - Ultrasound Report [id number] 0CD:[address] [facility] Urology Office/Clinic Noteon 12-19-2022 Urology Office/Clinic Note Chief Complaint Follow up to stent placement HPI Staff Patsy is a 77 y.o. male here for follow up to RT stent placement w/ ANA/BMP. Renal US done 12/17/22 shows interval resolution of the right sided hydronephrosis since the prior US study. Previous DX: asymptomatic microscopic hematuria, bilateral hydronephrosis, BPH w/ urinary obstruction, dysuria, family history of prostate cancer in father, glycosuria, history of kidney stones, hydroureter, incomplete bladder emptying, kidney stone, nocturia, OAB, prostate cancer, UTI, UTI symptoms, weak urine stream. S/P cysto/RG/ureteroscopy/ stent placement/RT ureteral dilation done on 12/10/22, TURP done on 08/27/22, UroLift done on 9/19/22. BMP done on 12/08/22 was BUN 30.0 & CRE 1.78. Pt is currently taking Oxybutynin 10 ER qd. Dysuria: denies pain or burning Incomplete bladder emptying: pt has cath Hematuria: denies visible blood in bag Leaking: denies History of Present Illness Tests reviewed: op note. I have reviewed the previous health record information and history for this patient from Dr. Cortez. I have reviewed and verified the staff HPI to be accurate for this encounter. There have been no associated fever, chills, flank pain, or blood in the urine. Denies any urinary infections since last encounter. Review of Systems PHQ Score Initial Depression Screen Score: 0 ROS - Provider Constitutional: denies weight loss, denies hot flashes. Eyes: denies eye problems. Gastrointestinal: denies nausea, denies vomiting. Cardiovascular: denies chest pain or angina. Integumentary: no dryness Musculoskeletal: denies musculoskeletal symptoms. ENMT: denies otolaryngeal symptoms. Respiratory: no shortness of breath. Heme/Lymph: denies easy bleeding tendency, denies easy bruising tendency. Psychiatric: no confusion, no anxiety. Genitourinary: See HPI. Physical Exam Vitals & Measurements HR: 81(Peripheral) BP: 145/85 HT: 28 in HT: 71 cm WT: 94.8 kg WT: 208.56 lb BMI: 188.06 General Appearance: alert, no distress, well nourished, well developed male. Genitourinary: Bond catheter in place Flank Pain: none. Bladder: nonpalpable. Assessment/Plan 77 year old male with complex urologic history s/p urolift, TURP, incidental finding of fav intermediate risk prostate cancer, now found to have right distal ureteral stricture, non-compliant small bladder with BL VUR, acute on chronic renal failure. Hx of multiple myeloma s/p tx, currently in remission. Sees Dr. Huddleston - no contraindications to proceed with any treatments or interventions TEHRESA N/A, pt inactive (1). Pt is here with his today. Follows with nephrology 1. Hydroureteronephrosis (N13.30: Unspecified hydronephrosis) 10/14/22 - BUN 25. Crea 1.54. eGFR 44. (bond in place) Cr up to 2 without bond 12/08/22 - Cr 1.78. eGFR 37. BUN 30. K 5.0. (with bond) 12/17/22 - Cr 1.84. eGFR 37. BUN 22. K 5.3. (with stent) ANA 09/23/22 - Mild-mod bilateral hydroureteronephrosis. No mass or stones. CT AP wo con 10/02/22 - Mild-mod bilateral hydronephrosis and hydroureter without obstructing stone or mass. Non-obstructing calculi left kidney measuring 7 mm. Post Bond Renal US 10/14/22 neg for hydro. CMP 10/14/22 BUN 25, crea 1.54, eGFR 44. (From Cr 2 prior). ANA 10/30/22 - Mild right pelvocaliectasis, neg for hydro. Pt refused bond/CIC at that time. Renal US 11/17/22 [facility] [place] - R-sided hydronephrosis and proximal hydroureter. Findings have progressed since prior study. Cr 1.87/ eGFR 36.6 Cath placed 11/21/2022 ANA 12/01/22 - Right-sided hydronephrosis, grossly similar to the prior study despite bond in place. S/P cysto/RG/ureteroscopy/ stent placement/RT ureteral dilation and stent placement 12/10/22. NAA 12/17/22 - Interval resolution of the right sided hydronephrosis since the prior US study. Taking Oxybutynin 10 ER qd. Stent not bothersome, oxybutynin working well. [place] improved, kidney draining, fxn preserved. Again thorough discussion regarding complex history of urge predominant BPH with LUTS status post UroLift and then TURP. No longer obstructed however patient's bladder is now significantly smaller capacity with bilateral reflux. Bilateral hydronephrosis and PVR 50% when Bond not in place. Right hydroureteronephrosis persistent despite catheter is due to distal ureteral stricture s/p minimal dilation for stent placement. Discussed complex situation regarding method of fixing stricture but also make the bladder more compliant to prevent reflux and recurrence of stricture. Given this in the setting of favorable intermediate prostate cancer (on ) and comorbidities, recommend referral to tertiary center for further evaluation. Follow up after below or sooner if needed. Pt understands and agrees with plan. -Refer to [facility] reconstructive urologist for right distal stricture, small capacity bladder with BL VUR -Sip high volume throughout the day to prevent stent encrustation. -Cont cath exchange q4wk. Next cath change around 05 (more content not included)... Normal [facility] Comment on above: Result Comment: Elec tronically Signed By: Vesna Cortez MD\.br\Date and Time Signed: 12/19/22 14:19 EDT\.br\Electronically Co-Signed By: Valentina Sharp\.br\Date and Time Co-Signed: 12/19/22 10:05 EDT Basic Metabolic Panelon 05-0 Anion gap [Moles/Vol] 12.6 mmol/L Normal 6.0-15.0 [facility] Comment on above: Performed By: #### B MP ####[place] [id number] [facility] Calcium [Mass/Vol] 8.7 mg/dL Normal 8.6-10.3 [facility] Comment on above: Result Comment: PERF ORMED BY:[address] [place], [place] [id number] MEDICAL DIRECTORMEAGAN HARDING M.D. Performed By: #### B MP ####[address] [address] [facility] Chloride [Moles/Vol] 107 mmol/L Normal 98-107 [facility] Comment on above: Performed By: #### B MP ####[address] [address] [facility] CO2 [Moles/Vol] 21.7 mmol/L Normal 21.0-31.0 [facility] Comment on above: Performed By: #### B MP ####[address] [address] [facility] Creatinine [Mass/Vol] 1.84 mg/dL High 0.70-1.30 [facility] Comment on above: Performed By: #### B MP ####[place] [id number] [place] GFR/1.73 sq M.predicted MDRD (S/P/Bld) [Vol rate/Area] 37.293 mL/min/{1.73_m2} Normal [facility] Comment on above: Performed By: #### B MP ####[place] [address] [place] [id number] [facility] Glucose [Mass/Vol] 194 mg/dL High 70-100 [facility] Comment on above: Result Comment: [facility] Glucose Reference Range is dependent on time and content of last meal. Glucose of more than 200 mg/dL in a nonstressed, ambulatory subject supports the diagnosis of Diabetes Mellitus. ADA recommended reference range Performed By: #### B MP ####[place] [address] [address] Potassium [Moles/Vol] 5.3 mmol/L High 3.5-5.1 [facility] Comment on above: Performed By: #### B MP ####[place] [address] [place] [id number] [facility] Sodium [Moles/Vol] 136 mmol/L Normal 136-145 [facility] Comment on above: Performed By: #### B MP ####[place] [address] [place] [id number] [facility] Urea nitrogen [Mass/Vol] 22 mg/dL Normal 7-25 [facility] Comment on above: Performed By: #### B MP ####[place] [address] [place] [id number] [facility] Calcium [Mass/volume] in Ser um or PlasmaOrdered By: Vesna Cortez on 12-17-2022 Calcium [Mass/Vol] 8.7 mg/dL 8.6-10.3 [facility] Carbon dioxide, total [Moles /volume] in Serum or PlasmaOrdered By: Vesna Cortez on 12-17-2022 CO2 [Moles/Vol] 21.7 mmol/L 21.0-31.0 [facility] Chloride [Moles/volume] in S valeria or PlasmaOrdered By: Vesna Cortez on 12-17-2022 Chloride [Moles/Vol] 107 mmol/L 98-107 [facility] Creatinine [Mass/volume] in Serum or PlasmaOrdered By: Vesna Cortez on 12-17-2022 Creatinine [Mass/Vol] 1.84 mg/dL 0.70-1.30 [facility] Glucose [Mass/volume] in Ser um or PlasmaOrdered By: Vesna Cortez on 12-17-2022 Glucose [Mass/Vol] 194 mg/dL 70-100 [facility] Comment on above: ADA recommended refe rence rangeRandom Glucose Reference Range is dependent on time and content of last meal. Glucose of more than 200 mg/dL in a nonstressed, ambulatory subject supports the diagnosis of Diabetes Mellitus. No Panel InformationOrdered By: Vesna Cortez on 12-17-2022 Estimated GFR (CKD-EPI) 37.293 mL/Min [facility] Creatinine Clearance (Chem N/A [facility] Potassium [Moles/volume] in Serum or PlasmaOrdered By: Vesna Cortez on 12-17-2022 Potassium [Moles/Vol] 5.3 mmol/L 3.5-5.1 [facility] Serum or plasma anion gap de terminationOrdered By: Vesna Cortez on 12-17-2022 Anion gap [Moles/Vol] 12.6 mmol/L 6.0-15.0 [facility] Sodium [Moles/volume] in Ser um or PlasmaOrdered By: Vesna Cortez on 12-17-2022 Sodium [Moles/Vol] 136 mmol/L 136-145 [facility] US renal BIon 12-17-2022 US renal BI Normal [facility] Urea nitrogen [Mass/volume] in Serum or PlasmaOrdered By: Vesna Cortez on 12-17-2022 Urea nitrogen [Mass/Vol] 22 mg/dL 7-25 [facility] Coding Summary.on 12-16-2022 Coding Summary. [id number] Ww +PGhlYWQ+FS2SUGQtD76bo LQizY4qG3TJAYzMSlqbTBE ZHUnYKyDuuaFmUL1wxYUkS XJu IC8+RV9cOVIuNvvuoDKoa0 I1wUM7W51uuo2nNQitdIN2 ZZTzYhGyiyora9gvdFr5GA cuNmluOyBt BUTppF06NOF7cM43Sd61iK CpyTFmp1zqvEv9ByGoQRXr IXI2cAszEHexe0MhMBDuA9 6hwFTcl0O4 ZSYkkNxctDNmCuIrfQW1rE 5mIWsceuzea3noixmdVjc0 kz73aRIdw4M2sUW4N9Xxwi C3IAYqsEKi GlvgmSPEuN9vooqib1mwzx smMlKrWTYeEJh4VCz2BKLf kLdtPoBjIE29FLU6VTAbhr AuD4UbBSIa mRxdGuF8z3K0Et0DY4GUMy mfV9KPYHKBUIocsHY+PC90 nj41S2FyIyeoBps5QRCoMJ T3lWI0kW2w QEFaGJjgt6E4xKK7X4Wkac Viey8ey3swZXDeEUrmC03j tBFpb5A5ZYWchNM6WZLttK zgOjHbtB90 Oyc+BZHiiMjlo5UcSliqr5 fqp6jhxMz8OuvdVNBuucRc kUocVPD3x4WnDn9mUKMngB T9hXV5bE7y LqUfBvF8MPajM638YkVhtN MrLhhqJ82qQ5AtvYL+PHRy Kth3NTIoaEizJW0eI0GgHZ RpbmctbGVm uJavZL3qBNXlnwovMUUnqP 3pESChZ2g5OqFmEeH2HWka E3JnJJQsbbywLw21cJ0yVl LzElU6IMix Z6McciR2YKGnhESuLJsuUS L6G91ys9I0YMZzKUVkGQW2 oHG3vW0iuPlxsnpdvMExaS sgdmVydGlj TJktSVwzA787SPHjyZaeVm NvZGluZyBEYXRlOiAgMDUv MDIvMjAyMzwvdGQ+PHRkIH G9eDnmTSAk lVMpDHybKc7upYoscFyrGY 2zOPGmrayqULMgaQ7oTEBq dGXdfUrnBI0wYNBowimos8 99VyYaBUU0 CKZhgMYtB9ZerZ9qPjKaTV RkGZLqV9UnnFLqKLraE381 KJwxXqE5ADElkeIcG8LvHD FsaWduOiB0 t6D2Uo4Cl5EhboayZ6TlzW CjOrNtYmqfMBa1J2XnSsmc dHI+RB28FWVoSQ64CZx0CS Z5fQzsRVrr XTNuC1SgwE3wJyWlJLMpPB RkOyc+PHRhYmxlIHdpZHRo GVmjHGSqOcJrwJsdDO4kVj 9yZGVyLWNv vWbzyRCwYxRak5msRXXyZQ gyGJ2baAsbO8GapNV7JVFr j9u6Sa28Z54oT9VpzGA+PG QzsNQ4dDR5 mP8dSrLlDlP2JTwdN487Vo FbyJZeMjnsv4zin8cbpFj4 EyY3OPHbkfOycRokMGS6y1 JwFv90M64v IHdpZHRoPSIxNSUiIHZhbG jiww0hxP8uRe9+PGNvbCB3 xOY5aG0uRpZeYiV4RAjhM9 49InRvcCIv Gizub4yrh2jbpCz1MeFbNL UmcvXtlVvqYKJ8g7CcHt78 F4KvqFtaw2FdHcw3rt09uX Tne9A0qYU0 P4FxAWPsxqoosKTvaRhqQZ 9mNEWvmexzGMMrsB7eXBPg Y8m2ZdLrBgA5JVqxZ8Bgcf T4BMGhgEAv GFAedNJFaE7bleiim2hxbg fyGzFlINVxGYi9EWs5OHNq zBjoRkQyIMH3YiG7DYS1tE VcsU3oxUzn wsmniE8jWyd+UYE5eJOihL KNCC0aIlntrXN+PHRkIHN0 nPlcWXfpSQZhbO1nFLEuV9 k3EkDkJxT9 ZCimR6ErscC5KZDyhSDjTY WkdDWIbZ7yuuoiv8rczzlh JfIyDPEwCZg8SXm1CSWsiG duOiBsZWZ0 ZsA8XED9lPVmmQ0fgLpxgi wmxB0cLxz+QmlydGggRGF0 VPm8E1VqIee7EOPsaGxaGQ 0ncGFkZGlu Xa9sfOsuyTxuUL8vYNBizg toe191AkOhz0ocQUOxaHAd WKksDHZ9O27qp9M2HSPvWT KwAWQ9kRD1 yJ3jbCpsbfkpuTWbrCwfnk GjqDkmDCvkUIubU782NPNa iDyqFeYgGPu9Z6EoIby4DO EpmCtqUG6j vFRyOSwuGh8tpMaqkVqmJD 4vCFJclqkfb893JbKmy3dz DFYkeSVdIDcyTTZ9N88if6 W6TSQeHEAa ZTB7dDN9cA6gmBxfodpldT VmdDsgdmVydGljYWwtYWxp C899LOOxuTxcFlUloRh4C9 RrMfy9VFBo cXunET4mxNZiNLdlFz6wrI suwUfpMA3oKMYjrtoge838 GbOhl1hePIQlfARsKXzfAH N9C64sd9M0 QOUaNAQdQSC6wJY5oB4vbP lnbjogbGVmdDsgdmVydGlj HTwcVXxcR609ZIBldEsqWf BhdGllbnQg GNpiEUj0X1RrXbftnPD+PC 85LJLzZE84yWMdmNFrr1aa mAc2JgNkILOqNNG0xYliCS ahj6RbQXUm H99qwXKwg3L8MQUhzWstnP NxPpKsbCH6jM6vBMdtfmoq t8xeyorrCvuan5ueur94iS 79R54mSVyg ZHRoPSIzMCUiIHZhbGlnbj 8cnX7iKn4+YFIvlZJ1jJW4 sP6lBIGiQmZ4IBoyG540Zf RvcCIvPjxj n6aiy6utxBh4UwL3TMYxte EdkCvxXXA2j4BzXq65C30q IHdpZHRoPSIyMCUiIHZhbG mxaa9stY1x Ii8+QYSnlDI3hNZ9qW4rVu DnLvN6OUreS849PtCpaIVa YjojV85tT8HevWK+PHRyPj z1AUZzqAmc RH0hkPRxSErdEa2rKMT3Fb YxBfLfXVrhF3EtRFCylxsk duujxUD5YEKmCZVocZ79Od 9udDogMTBw bUVNwO1thoydm2pmidydQp GuRGCjHRa1KBg4UZMmrVhr CvHjDLK5VmG4KBZ5pPKunU 1hbGlnbjog sE8tV5GfVLHzntlbKw64nX 2tIrDxVxX9JFpeOed+TUlM XCSDABCFE97XNXCeNkesaR Q+PHRkIHN0 zCksPKctGQDdlH7oMQTjA8 g0XvPiImO0WLkaW7RuHDSg yilzZc50hC5dPjOtWvE8DE hbQ2NzmuQ4 SZDeyNCgAMliSDC3Y96en8 A8NWQnWLRdMYY3xTZ0mU3a bGlnbjogbGVmdDsgdmVydG ljYWwtYWxp B941OHQlxShcKgT0JpTfEd B3ROD4J8HrMxl1NXYydSbm EA1ncMWjCIswUs9kpVvcjV mpVG0yQARl caezAJInvL9iCLLqgNIkfD umHA1dLHFpvhwev290BhRw KPL2BLHezGUgZ0KhnZ4nDt AjMDAwMDAw N2FfjQAdVYtmL469KIfrUg Q7UFBuifLnI3YjJQUoaOvw DmK1e5D8Dt95WuOENRPjks wvdGQ+PHRk AXB2xDzxYFafYLFqpB5dME CcY6b6VfGfRpV6CQfvG7Yu JJQjgimfUt44cC6bFbZfMy T1VCrmC1Aw soE5WMQwvEOpBNthLJC7Z1 4im5R2YDXoCEUoZUI3nWA5 jI5bwYhcyqwenSMukXbboc VydGljYWwt RHdjO198QNWwcUucPx2zqG L0Z6MfTku0HXFahMliQM7z uSWmQRdzOn6iwAetgTrxRH 4wNTBpbjtw CSQjaW5wAWIajRSkvUleYJ 2eWTEboxxtm396XcOjQGU7 CVGecLHmX1BtdU8lUnUeIY NlSZAxI1Oo lJQcZTktY634LGvgFkW5ZR SrlqUlV7AkNLSobVgcPbA6 c6Y0Wn7XAMJdVHYqbBLwCp R7Q2JzZvia dHI+OQ59AYVrZN29dIExbA Tjk0tqpOq8TtLuTDBvRZH6 dJwcRPdnu9CvPRHpM21tnK Vmt4Y5TNKa tBicnBErOeMigPJ9dF1rZI aartmlf3oxfnjeGzpyb5as na75aJ25Q75uKVjvBXQxNE IzMCUiIHZh bSxnbu7qkO5aRk4+PGNvbC Z8qMO1qF3zAiQjJkP6ATcc C076OwPwwOUoOchxk5vib4 aocJf1MtIu KYPcxhNwkUzkMKE9j8SvEr 94H95xUMuqOOPwLVBjJDKm PNJnwIlwvf7nkH0yCs6+PC 5za5jbmb06 iG50sSK+ZPMaXBS7iPjhWR svKZZowK2sBKcqSqO3DORp LfDrrB92tLKnLZwkEz1yeW sacZrvQU6j AQPxzmiqe654ObSvq8zgLO AvcAVoGFkcKDA8E83yo6K3 LTZmUITbSFL1pGH8sX4oeS lnbjogbGVm dDsgdmVydGljYWwtYWxpZ2 68RCQcfFiqPxIreGGtN6fk rqTDFS5gZibpkZQ+PHRkIH Y6yJioMIts YEScoN6vGBQhY0f8WeZtRw G7IIogN1ArqoS5YPNdmSMo XBEdxGCHkY6crsngm5lnbz ogIzAwMDAw RSf7KQr4AHJcsKelGjJyMB A6PcA6UTV9mMCgjY3ymPws xntbnU6iHcx+RklOOjwvdG Q+PHRkIHN0 hFfdTIenJLXlvO0jFAMeW3 c1ZrVvVnT0SCopM1QcqoW5 AHOovNBrITTviERWbF8avz dpz0kitnyg BzLeNAUxCPa4XMn7DGXwiY hvKlTvVQF8WxA0OIL6oDUu qX8rlYxjmyhujT0zCtl+TV JOOjwvdGQ+ BGEuBOB1mUabRObeRUPweS 7wEFXrA1g3NwPoZbM5DTxv Z9XtpsX5XNGixJRlTYWjwK KIbK4svssv v2wpdvbqMzRwQWCpOLd4RZ h9UKYikKnaPpSjTIN7DvT8 BPB8gBKviT9bbQzebsstxR 9wOyc+UGF5 HBS1SJ79KW50T7FpRszczB FibGU+PHRhYmxlIHdpZHRo BCpjGILgKcSxtQaxTS0nRf 9yZGVyLWNv bGxhcHNl (more content not included)... Normal [facility] Alanine aminotransferase [En zymatic activity/volume] in Serum or PlasmaOrdered By: Brook Huddleston on 12-11-2022 ALT [Catalytic activity/Vol] 15 U/L 7-52 [facility] Albumin [Mass/volume] in Ser um or Plasma by Bromocresol green (BCG) dye binding methoOrdered By: Brook Huddleston on 12-11-2022 Albumin BCG dye [Mass/Vol] 3.8 g/dL 3.5-5.7 [facility] Alkaline phosphatase [Enzyma tic activity/volume] in Serum or PlasmaOrdered By: Brook Huddleston on 12-11-2022 ALP [Catalytic activity/Vol] 91 U/L 34-104 [facility] Anisocytosis LM Ql (Bld)Orde red By: Brook Huddleston on 12-11-2022 Anisocytosis Ql (Bld) Slight [facility] Aspartate aminotransferase [ Enzymatic activity/volume] in Serum or PlasmaOrdered By: Brook Huddleston on 12-11-2022 AST [Catalytic activity/Vol] 12 U/L 13-39 [facility] Basophils Auto (Bld) [#/Vol] Ordered By: Brook Huddleston on 12-11-2022 Basophils (Bld) [#/Vol] 0.0 10*3/uL 0.0-0.2 [facility] Basophils/100 WBC Auto (Bld) Ordered By: Brook Huddleston on 12-11-2022 Basophils/100 WBC (Bld) 0.2 % . [facility] Bilirubin.total [Mass/volume ] in Serum or PlasmaOrdered By: Brook Huddleston on 12-11-2022 Bilirubin [Mass/Vol] 0.4 mg/dL 0.3-1.0 [facility] Calcium [Mass/volume] in Ser um or PlasmaOrdered By: Brook Huddleston on 12-11-2022 Calcium [Mass/Vol] 8.4 mg/dL 8.6-10.3 [facility] Carbon dioxide, total [Moles /volume] in Serum or PlasmaOrdered By: Brook Huddleston on 12-11-2022 CO2 [Moles/Vol] 22.6 mmol/L 21.0-31.0 [facility] Chloride [Moles/volume] in S valeria or PlasmaOrdered By: Brook Huddleston on 12-11-2022 Chloride [Moles/Vol] 100 mmol/L 98-107 [facility] Comprehensive Metabolic Pane mana 12-11-2022 Albumin [Mass/Vol] 3.8 g/dL Normal 3.5-5.7 [facility] Comment on above: Performed By: #### S CAN CBC, CMP ####[place] [id number] [facility] Albumin/Globulin [Mass ratio] 1.6 {ratio} Normal [facility] Comment on above: Performed By: #### S CAN CBC, CMP ####[place] [id number] [facility] ALP [Catalytic activity/Vol] 91 U/L Normal 34-104 [facility] Comment on above: Performed By: #### S CAN CBC, CMP ####[place] [id number] [facility] ALT [Catalytic activity/Vol] 15 U/L Normal 7-52 [facility] Comment on above: Performed By: #### S CAN CBC, CMP ####[place] [id number] [facility] Anion gap [Moles/Vol] 13.4 mmol/L Normal 6.0-15.0 [facility] Comment on above: Performed By: #### S CAN CBC, CMP ####[place] [id number] [facility] AST [Catalytic activity/Vol] 12 U/L Low 13-39 [facility] Comment on above: Performed By: #### S CAN CBC, CMP ####[place] [id number] [facility] Bilirubin [Mass/Vol] 0.4 mg/dL Normal 0.3-1.0 [facility] Comment on above: Performed By: #### S CAN CBC, CMP ####[place] [id number] [facility] Calcium [Mass/Vol] 8.4 mg/dL Low 8.6-10.3 [facility] Comment on above: Performed By: #### S CAN CBC, CMP ####[place] [address] [place] [address] [facility] Chloride [Moles/Vol] 100 mmol/L Normal 98-107 [facility] Comment on above: Performed By: #### S CAN CBC, CMP ####[place] [address] [place] [address] [facility] CO2 [Moles/Vol] 22.6 mmol/L Normal 21.0-31.0 [facility] Comment on above: Performed By: #### S CAN CBC, CMP ####[place] [address] [place] [address] [facility] Creatinine [Mass/Vol] 1.87 mg/dL High 0.70-1.30 [facility] Comment on above: Performed By: #### S CAN CBC, CMP ####[place] [id number] [facility] Creatinine Clr Calc Pharmacy 37.68 [facility] Comment on above: Result Comment: PERF ORMED BY:[address] [place], [place] [id number] MEDICAL DIRECTORMEAGAN HARDING M.D. Performed By: #### S CAN CBC, CMP ####[address] [address] [facility] GFR/1.73 sq M.predicted MDRD (S/P/Bld) [Vol rate/Area] 36.576 mL/min/{1.73_m2} [facility] Comment on above: Performed By: #### S CAN CBC, CMP ####[place] [address] [place] [address] [facility] Globulin (S) [Mass/Vol] 2.4 g/dL [facility] Comment on above: Performed By: #### S CAN CBC, CMP ####[address] [address] [facility] Glucose [Mass/Vol] 349 mg/dL High 70-100 [facility] Comment on above: Result Comment: [employer] Glucose Reference Range is dependent on time and content of last meal. Glucose of more than 200 mg/dL in a nonstressed, ambulatory subject supports the diagnosis of Diabetes Mellitus. ADA recommended reference range Performed By: #### S CAN CBC, CMP ####[facility] [id number] [place] [address] [facility] Potassium [Moles/Vol] 5.0 mmol/L Normal 3.5-5.1 [facility] Comment on above: Performed By: #### S CAN CBC, CMP ####[facility] [id number] [place] [address] [facility] Protein [Mass/Vol] 6.2 g/dL Low 6.4-8.9 [facility] Comment on above: Performed By: #### S CAN CBC, CMP ####[facility] [id number] [place] [address] [facility] Sodium [Moles/Vol] 131 mmol/L Low 136-145 [facility] Comment on above: Performed By: #### S CAN CBC, CMP ####[facility] [id number] [place] [address] [facility] Urea nitrogen [Mass/Vol] 30 mg/dL High 7-25 [facility] Comment on above: Performed By: #### S CAN CBC, CMP ####[facility] [id number] [place] [address] [facility] Creatinine [Mass/volume] in Serum or PlasmaOrdered By: Brook Huddleston on 12-11-2022 Creatinine [Mass/Vol] 1.87 mg/dL 0.70-1.30 [facility] Eosinophils Auto (Bld) [#/Vo l]Ordered By: Brook Huddleston on 12-11-2022 Eosinophils (Bld) [#/Vol] 0.0 10*3/uL 0.0-0.45 [facility] Eosinophils/100 WBC Auto (Bl d)Ordered By: Brook Huddleston on 12-11-2022 Eosinophils/100 WBC (Bld) 0.1 % . [facility] Erythrocyte distribution wid th Auto (RBC) [Ratio]Ordered By: Brook Huddleston on 12-11-2022 Erythrocyte distribution width (RBC) [Ratio] 16.0 % 12.0-14.8 [facility] Globulin Calc (S) [Mass/Vol] Ordered By: Brook Huddleston on 12-11-2022 Globulin (S) [Mass/Vol] 2.4 g/dL [facility] Glucose [Mass/volume] in Ser um or PlasmaOrdered By: Brook Huddleston on 12-11-2022 Glucose [Mass/Vol] 349 mg/dL 70-100 [facility] Comment on above: ADA recommended refe rence rangeRandom Glucose Reference Range is dependent on time and content of last meal. Glucose of more than 200 mg/dL in a nonstressed, ambulatory subject supports the diagnosis of Diabetes Mellitus. Hematocrit Auto (Bld) [Volum e fraction]Ordered By: Brook Huddleston on 12-11-2022 Hematocrit (Bld) [Volume fraction] 27.8 % 38.8-50.0 [facility] Hemoglobin [Mass/volume] in BloodOrdered By: Brook Huddleston on 12-11-2022 Hemoglobin (Bld) [Mass/Vol] 9.3 g/dL 13.0-17.0 [facility] Leukocytes [#/volume] correc lizbet for nucleated erythrocytes in Blood by Automated counOrdered By: Brook Huddleston on 12-11-2022 WBC corrected for nucl RBC Auto (Bld) [#/Vol] 10.2 10*3/uL 4.1-10.5 [facility] Lymphocytes Auto (Bld) [#/Vo l]Ordered By: Brook Huddleston on 12-11-2022 Lymphocytes (Bld) [#/Vol] 0.7 10*3/uL 1.00-4.8 [facility] Lymphocytes/100 WBC Auto (Bl d)Ordered By: Brook Huddleston on 12-11-2022 Lymphocytes/100 WBC (Bld) 7.2 % . [facility] MCH Auto (RBC) [Entitic mass ]Ordered By: Brook Huddleston on 12-11-2022 MCH (RBC) [Entitic mass] 38.0 pg 27.5-35.2 [facility] MCHC Auto (RBC) [Mass/Vol]Or dered By: Brook Huddleston on 12-11-2022 MCHC (RBC) [Mass/Vol] 33.6 g/dL 32.5-35.6 [facility] MCV Auto (RBC) [Entitic vol] Ordered By: Brook Huddleston on 12-11-2022 MCV (RBC) [Entitic vol] 113.0 fL 83.5-101 [facility] Macrocytes LM Ql (Bld)Ordere d By: Brook Huddleston on 12-11-2022 Macrocytes Ql (Bld) Slight [facility] Monocytes Auto (Bld) [#/Vol] Ordered By: Brook Huddleston on 12-11-2022 Monocytes (Bld) [#/Vol] 0.5 10*3/uL 0.0-0.8 [facility] Monocytes/100 WBC Auto (Bld) Ordered By: Brook Huddleston on 12-11-2022 Monocytes/100 WBC (Bld) 5.2 % . [facility] Neutrophils Auto (Bld) [#/Vo l]Ordered By: Brook Huddleston on 12-11-2022 Neutrophils (Bld) [#/Vol] 8.8 10*3/uL 1.8-7.7 [facility] Neutrophils/100 WBC Auto (Bl d)Ordered By: Brook Huddleston on 12-11-2022 Neutrophils/100 WBC (Bld) 87.3 % . [facility] No Panel InformationOrdered By: Brook Huddleston on 12-11-2022 Estimated GFR (CKD-EPI) 36.576 mL/Min [facility] Creatinine Clearance (Chem 37.68 [facility] Nucleated erythrocytes [Pres ence] in Blood by Automated countOrdered By: Brook Huddleston on 12-11-2022 Nucleated RBC Auto Ql (Bld) 0.0 /100{WBC} 0-0.5 [facility] Operative Reporton 3 Operative Report [id number]:[id number] [facility] Platelet adequacy [Presence] in Blood by Light microscopyOrdered By: Brook Huddleston on 12-11-2022 Platelets LM Ql (Bld) Decreased Normal [facility] Platelet mean volume Auto (B ld) [Entitic vol]Ordered By: Brook Huddleston on 12-11-2022 Platelet mean volume (Bld) [Entitic vol] 9.8 fL 6.6-10.1 [facility] Platelet morphology finding [Identifier] in BloodOrdered By: Brook Huddleston on 12-11-2022 Platelet morphology finding Nom (Bld) Normal Normal [facility] Platelets Auto (Bld) [#/Vol] Ordered By: Brook Huddleston on 12-11-2022 Platelets (Bld) [#/Vol] 117 10*3/uL 150-450 [facility] Potassium [Moles/volume] in Serum or PlasmaOrdered By: Brook Huddleston on 12-11-2022 Potassium [Moles/Vol] 5.0 mmol/L 3.5-5.1 [facility] Protein [Mass/volume] in Ser um or PlasmaOrdered By: Brook Huddleston on 12-11-2022 Protein [Mass/Vol] 6.2 g/dL 6.4-8.9 [facility] RBC Auto (Bld) [#/Vol]Ordere d By: Brook Huddleston on 12-11-2022 RBC (Bld) [#/Vol] 2.46 10*6/uL 3.90-5.60 [facility] RBC morphologyOrdered By: Black safia Flaquito on 12-11-2022 RBC morphology finding Nom (Bld) N/A [facility] Scan and CBCon 12-11-2022 Anisocytosis Ql (Bld) Slight Normal [facility] Comment on above: Performed By: #### S CAN CBC, CMP ####[facility] [id number] [place] [address] [facility] Basophils (Bld) [#/Vol] 0.0 10*3/uL Normal 0.0-0.2 [facility] Comment on above: Result Comment: PERF ORMED BY:[address] [place], [place] [id number] MEDICAL DIRECTORMEAGAN HARDING M.D. Performed By: #### S CAN CBC, CMP ####[facility] [id number] [place] [address] [facility] Basophils/100 WBC (Bld) 0.2 % Normal . [facility] Comment on above: Performed By: #### S CAN CBC, CMP ####[address] Eosinophils (Bld) [#/Vol] 0.0 10*3/uL Normal 0.0-0.45 [facility] Comment on above: Performed By: #### S CAN CBC, CMP ####[address] Eosinophils/100 WBC (Bld) 0.1 % Normal . [facility] Comment on above: Performed By: #### S CAN CBC, CMP ####[address] Erythrocyte distribution width (RBC) [Ratio] 16.0 % High 12.0-14.8 [facility] Comment on above: Performed By: #### S CAN CBC, CMP ####[address] Hematocrit (Bld) [Volume fraction] 27.8 % Low 38.8-50.0 [facility] Comment on above: Performed By: #### S CAN CBC, CMP ####[address] Hemoglobin (Bld) [Mass/Vol] 9.3 g/dL Low 13.0-17.0 [facility] Comment on above: Performed By: #### S CAN CBC, CMP ####[address] Lymphocytes (Bld) [#/Vol] 0.7 10*3/uL Low 1.00-4.8 [facility] Comment on above: Performed By: #### S CAN CBC, CMP ####[address] Lymphocytes/100 WBC (Bld) 7.2 % Normal . [facility] Comment on above: Performed By: #### S CAN CBC, CMP ####[address] Macrocytosis Slight Normal [facility] Comment on above: Performed By: #### S CAN CBC, CMP ####[address] MCH (RBC) [Entitic mass] 38.0 pg High 27.5-35.2 [facility] Comment on above: Performed By: #### S CAN CBC, CMP ####[address] MCV (RBC) [Entitic vol] 113.0 fL High 83.5-101 [facility] Comment on above: Performed By: #### S CAN CBC, CMP ####[address] Mean Corpuscular HGB Conc 33.6 g/dL Normal 32.5-35.6 [facility] Comment on above: Performed By: #### S CAN CBC, CMP ####[address] Monocytes (Bld) [#/Vol] 0.5 10*3/uL Normal 0.0-0.8 [facility] Comment on above: Performed By: #### S CAN CBC, CMP ####[address] Monocytes/100 WBC (Bld) 5.2 % Normal . [facility] Comment on above: Performed By: #### S CAN CBC, CMP ####[address] Neutrophils (Bld) [#/Vol] 8.8 10*3/uL High 1.8-7.7 [facility] Comment on above: Performed By: #### S CAN CBC, CMP ####[address] Neutrophils/100 WBC (Bld) 87.3 % Normal . [facility] Comment on above: Performed By: #### S CAN CBC, CMP ####[address] NRBC% 0.0 /100{WBC} Normal 0-0.5 [facility] Comment on above: Performed By: #### S CAN CBC, CMP ####[address] [address] [facility] Platelet Estimate Decreased Low Normal [facility] Comment on above: Performed By: #### S CAN CBC, CMP ####[address] [address] [facility] Platelet mean volume (Bld) [Entitic vol] 9.8 fL Normal 6.6-10.1 [facility] Comment on above: Performed By: #### S CAN CBC, CMP ####[place] [id number] [facility] Platelet Morphology Normal Normal Normal [facility] Comment on above: Result Comment: PERF ORMED BY:[address] [place], [place] [id number] MEDICAL DIRECTORMEAGAN HARDING M.D. Performed By: #### S CAN CBC, CMP ####[place] [id number] [facility] Platelets (Bld) [#/Vol] 117 10*3/uL Low 150-450 [facility] Comment on above: Performed By: #### S CAN CBC, CMP ####[place] [id number] [facility] RBC (Bld) [#/Vol] 2.46 10*6/uL Low 3.90-5.60 [facility] Comment on above: Performed By: #### S CAN CBC, CMP ####[place] [id number] [facility] Schistocytes Slight Normal [facility] Comment on above: Performed By: #### S CAN CBC, CMP ####[place] [id number] [facility] WBC (Bld) [#/Vol] 10.2 10*3/uL Normal 4.1-10.5 [facility] Comment on above: Performed By: #### S CAN CBC, CMP ####[facility] [id number] [place] [id number] [facility] Schistocytes [Presence] in B lood by Light microscopyOrdered By: Brook Huddleston on 12-11-2022 Schistocytes LM Ql (Bld) Slight [facility] Serum or plasma albumin/glob ulin mass ratioOrdered By: Brook Huddleston on 12-11-2022 Albumin/Globulin [Mass ratio] 1.6 {ratio} [facility] Serum or plasma anion gap de terminationOrdered By: Brook Huddleston on 12-11-2022 Anion gap [Moles/Vol] 13.4 mmol/L 6.0-15.0 [facility] Sodium [Moles/volume] in Ser um or PlasmaOrdered By: Brook Huddleston on 12-11-2022 Sodium [Moles/Vol] 131 mmol/L 136-145 [facility] Urea nitrogen [Mass/volume] in Serum or PlasmaOrdered By: Brook Huddleston on 12-11-2022 Urea nitrogen [Mass/Vol] 30 mg/dL 7-25 [facility] WBC Auto (Bld) [#/Vol]Ordere d By: Brook Huddleston on 12-11-2022 WBC (Bld) [#/Vol] 10.2 10*3/uL 4.1-10.5 [facility] Lab Reportson 12-10-2022 Lab Reports [id number] CD:[address] [facility] Lab Reports [id number]#1.0 0CD:[address] [facility] Lab Reports [id number]#1.0 0CD:[address] [facility] POINT OF CARE GLUCOSEon 11-16 Glucose [Mass/Vol] 284 mg/dL Critically high 74-106 [facility] Comment on above: Performed By: #### P TT, PT #### [facility] [address] [address] [address] Lydia Merritt CBC AUTO DIFFon 12-08-2022 BASO # 0.0 103/ul Normal 0.0-0.1 [facility] Comment on above: Performed By: #### P TT, PT #### [facility] [address] [place] [address] Dr. Lydia Merritt Basophils/100 WBC (Bld) 0.1 % Critically low 0.2-2.0 [facility] Comment on above: Performed By: #### P TT, PT #### [facility] [address] [place] [address] Dr. Lydia Merritt EO # 0.2 103/ul Normal 0.0-0.7 [facility] Comment on above: Performed By: #### P TT, PT #### [facility] [address] [place] [address] Dr. Lydia Merritt Eosinophils/100 WBC (Bld) 1.6 % Normal 0.9-7.0 [facility] Comment on above: Performed By: #### P TT, PT #### [facility] [address] [place] [address] Dr. Lydia Merritt Erythrocyte distribution width (RBC) [Ratio] 15.2 % Critically high 11.0-15.0 [facility] Comment on above: Performed By: #### P TT, PT #### [facility] [address] [place] [address] Dr. Lydia Merritt Hematocrit (Bld) [Volume fraction] 30.6 % Critically low 42.0-54.0 [facility] Comment on above: Performed By: #### P TT, PT #### [facility] [address] [place] [address] Dr. Lydia Merritt Hemoglobin (Bld) [Mass/Vol] 10.2 g/dL Critically low 14.0-18.0 [facility] Comment on above: Performed By: #### P TT, PT #### [facility] [address] [place] [address] Dr. Lydia Merritt IG # 0.05 10e3/ul Critically high 0.00-0.03 [facility] Comment on above: Performed By: #### P TT, PT #### [facility] [address] [place] [address] Dr. Lydia Merritt IG % 0.5 % Normal 0.0-0.5 [facility] Comment on above: Performed By: #### P TT, PT #### [facility] [address] [place] [address] Dr. Lydia Merritt LYMPH # 0.8 103/ul Critically low 1.2-3.8 [facility] Comment on above: Performed By: #### P TT, PT #### [facility] [address] [place] [address] Dr. Lydia Merritt Lymphocytes/100 WBC (Bld) 8.2 % Critically low 20.5-60.0 [facility] Comment on above: Performed By: #### P TT, PT #### [facility] [address] [place] [address] Dr. Lydia Merritt MANUAL DIFF REQ NO Normal [facility] Comment on above: Performed By: #### P TT, PT #### [facility] [address] [place] [address] Dr. Lydia Merritt MCH (RBC) [Entitic mass] 37.9 pg Critically high 25.9-34.0 [facility] Comment on above: Performed By: #### P TT, PT #### [facility] [address] [place] [address] Dr. Lydia Merritt MCHC (RBC) [Mass/Vol] 33.3 g/dL Normal 29.9-35.2 [facility] Comment on above: Performed By: #### P TT, PT #### [facility] [address] [place] [address] Dr. Lydia Merritt MCV (RBC) [Entitic vol] 113.8 fL Critically high 80.0-94.0 [facility] Comment on above: Result Comment: 2+ m acrocytosis Performed By: #### P TT, PT #### [facility] [address] [place] [address] Dr. Lydia Merritt MONO # 0.5 103/ul Normal 0.3-0.8 [facility] Comment on above: Performed By: #### P TT, PT #### [facility] [address] [place] [address] Dr. Lydia Merritt Monocytes/100 WBC (Bld) 5.4 % Normal 1.7-12.0 [facility] Comment on above: Performed By: #### P TT, PT #### [facility] [address] [place] [address] Dr. Lydia Merritt NEUT # 7.9 103/ul Critically high 1.4-6.5 [facility] Comment on above: Performed By: #### P TT, PT #### [facility] [address] [place] [address] Dr. Lydia Merritt Neutrophils/100 WBC (Bld) 84.2 % Critically high 43.0-75.0 [facility] Comment on above: Performed By: #### P TT, PT #### [facility] [address] [place] [address] Dr. Lydia Merritt Platelet mean volume (Bld) [Entitic vol] 10.9 fL Normal 9.5-13.5 [facility] Comment on above: Performed By: #### P TT, PT #### [facility] [address] [place] [address] Dr. Lydia Merritt PLT 117 103/ul Critically low 150-450 [facility] Comment on above: Performed By: #### P TT, PT #### [facility] [address] [place] [address] Dr. Lydia Merritt RBC 2.69 106/ul Critically low 4.70-6.10 [facility] Comment on above: Performed By: #### P TT, PT #### [facility] [address] [place] [address] Dr. Lydia Merritt WBC 9.4 103/ul Normal 4.0-11.0 [facility] Comment on above: Performed By: #### P TT, PT #### [facility] [address] [place] [address] Dr. Lydia Merritt PROF CHEM 8 (BAS METB)on Anion gap [Moles/Vol] 14.6 mmol/L Normal Th [facility] Comment on above: Performed By: #### B MP #### [facility] [address] [address] [address] Lydia Merritt Calcium [Mass/Vol] 9.1 mg/dL Normal 8.5-10.1 [facility] Comment on above: Performed By: #### B MP #### [facility] [address] [address] [address] Lydia Merritt Chloride [Moles/Vol] 101 mmol/L Normal 98-107 [facility] Comment on above: Performed By: #### B MP #### [facility] [address] [address] [address] Lydia Merritt CO2 [Moles/Vol] 25.4 mmol/L Normal 21.0-32.0 [facility] Comment on above: Performed By: #### B MP #### [facility] [address] [address] [address] Lydia Merritt Creatinine [Mass/Vol] 1.78 mg/dL Critically high 0.70-1.30 [facility] Comment on above: Performed By: #### B MP #### [facility] [address] [address] [address] Lydia Merritt EGFR-AF CAMBODIAN 45 mL/min/1.73m2 Critically low >=60 [facility] Comment on above: Performed By: #### B MP #### [facility] [address] [address] [address] Lydia Merritt EGFR-NON AF [place] 37 mL/min/1.73m2 Critically low >=60 [facility] Comment on above: Performed By: #### B MP #### [facility] [address] [address] [address] Lydia Merritt Glucose [Mass/Vol] 413 mg/dL Critically high 74-106 [facility] Comment on above: Performed By: #### B MP #### [facility] [address] [address] [address] Lydia Merritt Potassium [Moles/Vol] 5.0 mmol/L Normal 3.5-5.1 [facility] Comment on above: Performed By: #### B MP #### [facility] [address] [place] [address] Dr. Lydia Merritt Sodium [Moles/Vol] 136 mmol/L Normal 136-145 [facility] Comment on above: Performed By: #### B MP #### [facility] [address] [place] [address] Dr. Lydia Merritt Urea nitrogen [Mass/Vol] 30.0 mg/dL Critically high 7.0-18.0 [facility] Comment on above: Performed By: #### B MP #### [facility] [address] [place] [address] Dr. Lydia Merritt Urea nitrogen/Creatinine [Mass ratio] 16.9 mg/mg Normal [facility] Comment on above: Performed By: #### B MP #### [facility] [address] [place] [address] Dr. Lydia Merritt PROTIMEon 12-08-2022 INR Coag (PPP) [Relative time] 0.95 {INR} Normal [facility] Comment on above: Performed By: #### P TT, PT #### [facility] [address] [place] [address] Dr. Lydia Merritt INR GUIDELINES SEE BELOW Normal [facility] Comment on above: Result Comment: DILLON RED INR: 2.0 - 3.0 CONDITIONS NOT LISTED BELOW 2.5 - 3.5 FOR PROSTHETIC HEART VALVE REPLACEMENT 2.5 - 3.5 RECURRENT THROMBOSIS Performed By: #### P TT, PT #### [facility] [address] [place] [address] Dr. Lydia Merritt PT Coag (PPP) [Time] 10.1 s Normal 9.0-11.6 [facility] Comment on above: Performed By: #### P TT, PT #### [facility] [address] [place] [address] Dr. Lydia Merritt PTTon 12-08-2022 aPTT Coag (Bld) [Time] 22.6 s Normal 22.3-36.2 Th [facility] Comment on above: Performed By: #### P TT, PT #### [facility] [address] [address] [address] Lydia Merritt Screenson 12-08-2022 Screens [id number]:127 [facility] C Urineon 12-07-2022 Bacteria identified Cx Nom (U) Microbiology PROCEDURE: Urine Culture [R1] SOURCE: U Cath BODY SITE: COLLECTED DATE/TIME: 12/05/2022 12:13 EDT RECEIVED DATE/TIME: 12/05/2022 18:19 EDT START DATE/TIME: 12/05/2022 18:19 EDT FREE TEXT SOURCE: halle Cortez MD, Vesna Cortez MD, Vesna Taylor FINAL REPORTS Final Report [] Verified Date/Time: 12/07/2022 09:06 EDT 40,000 cfu/ml Yanci albicans Presumptive isolated. Performing Locations R1: This test was performed at: [facility], [address] [place] [address], [address] [place] [address], [facility] Comment on above: Performed By: #### [id number] #### [facility] [address] [place] [address] Ambulatory Visit Summaryon 0 12-05-2022 Ambulatory Visit Summary GENE PATSY G :1945 Visit Date:12/05/2022 Ambulatory Visit Instructions Your Diagnosis Hydroureteronephrosis Prostate cancer BPH with urinary obstruction Incomplete bladder emptying OAB (overactive bladder) Family history of prostate cancer in father Kidney stone Your Care Team Attending Physician - Diego RICKS, Vesna Taylor Primary Care Physician - HELEN HEATH MD This Is Your Medications List Contact prescribing physician if questions or concerns acyclovir (Zovirax 400 mg Tab) aspirin (aspirin 81 mg Chew Tab) atorvastatin (atorvastatin 20 mg Tab) bifidobacterium-lactob acillus (Probiotic + Colostrum) cholecalciferol (Vitamin D3 2000 intl units) famotidine (famotidine 20 mg Tab) insulin glargine (Lantus insulin) insulin lispro (Humalog) lenalidomide (Revlimid 5 mg oral capsule) metformin (metformin 500 mg Tab) potassium chloride (potassium chloride 20 mEq ER Tab) Procedures Performed TURP - Transurethral resection of prostate (08/27/2022), Transurethral insertion of prostatic urethral lift implant (05/05/2022), Cystoscopic removal of ureteric stent (08/20/2012), Cystoscopic ureteroneocystostomy with insertion 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 Discharge Vitals Heart Rate (Peripheral) 70 Blood Pressure 135/68 Height 180 cm Height 71 in Weight 95 kg Weight 209 lb BMI 29.32 What to do next Scheduled Follow-Up Appointments Thursday 10:45 AM EDT With: Vesna Cortez MD Where: [facility] Patient Educationon 12-06-19 Patient Education Oncology Prostate Cancer The prostate is a small gland that produces fluid that makes up semen (seminal fluid). It is located below the bladder in men, in front of the rectum. Prostate cancer is the abnormal growth of cells in the prostate gland. What are the causes? The exact cause of this condition is not known. What increases the risk? You are more likely to develop this condition if: ? You are 65 years of age or older. ? You have a family history of prostate cancer. ? You have a family history of breast and ovarian cancer. ? You have genes that are passed from parent to child (inherited), such as BRCA1 and BRCA2. ? You have E[place] syndrome. men and men of descent are diagnosed with prostate cancer at higher rates than other men. The reasons for this are not well understood and are likely due to a combination of genetic and environmental factors. What are the signs or symptoms? Symptoms of this condition include: ? Problems with urination. This may include: ? A weak or interrupted flow of urine. ? Trouble starting or stopping urination. ? Trouble emptying the bladder all the way. ? The need to urinate more often, especially at night. ? Blood in urine or semen. ? Persistent pain or discomfort in the lower back, lower abdomen, or hips. ? Trouble getting an erection. ? Weakness or numbness in the legs or feet. How is this diagnosed? This condition can be diagnosed with: ? A digital rectal exam. For this exam, a health care provider inserts a gloved finger into the rectum to feel the prostate gland. ? A blood test called a prostate-specific antigen (PSA) test. ? A procedure in which a sample of tissue is taken from the prostate and checked under a microscope (prostate biopsy). ? An imaging test called transrectal ultrasonography. Once the condition is diagnosed, tests will be done to determine how far the cancer has spread. This is called staging the cancer. Staging may involve imaging tests, such as a bone scan, CT scan, PET scan, or MRI. Stages of prostate cancer The stages of prostate cancer are as follows: ? Stage 1 (I). At this stage, the cancer is found in the prostate only. The cancer is not visible on imaging tests, and it is usually found by accident, such as during prostate surgery. ? Stage 2 (II). At this stage, the cancer is more advanced than it is in stage 1, but the cancer has not spread outside the prostate. ? Stage 3 (III). At this stage, the cancer has spread beyond the outer layer of the prostate to nearby tissues. The cancer may be found in the seminal vesicles, which are near the bladder and the prostate. ? Stage 4 (IV). At this stage, the cancer has spread to other parts of the body, such as the lymph nodes, bones, bladder, rectum, liver, or lungs. Prostate cancer grading Prostate cancer is also graded according to how the cancer cells look under a microscope. This is called the Selene score and the total score can range from 6?10, indicating how likely it is that the cancer will spread (metastasize) to other parts of the body. The higher the score, the greater the likelihood that the cancer will spread. ? [place] 6 or lower: This indicates that the cancer cells look similar to normal prostate cells (well differentiated). ? [place] 7: This indicates that the cancer cells look somewhat similar to normal prostate cells (moderately differentiated). ? [place] 8, 9, or 10: This indicates that the cancer cells look very different than normal prostate cells (poorly differentiated). How is this treated? Treatment for this condition depends on several factors, including the stage of the cancer, your age, personal preferences, and your overall health. Talk with your health care provider about treatment options that are recommended for you. Common treatments include: ? Observation for early stage prostate cancer (active surveillance). This involves having exams, blood tests, and in some cases, more biopsies. For some men, this is the only treatment needed. ? Surgery. Types of surgeries include: ? Open surgery (radical prostatectomy). In this surgery, a larger incision is made to remove the prostate. ? A laparoscopic radical prostatectomy. This is a surgery to remove the prostate and lymph nodes through several small incisions. It is often referred to as a minimally invasive surgery. ? A robotic radical prostatectomy. This is laparoscopic surgery to remove the prostate and lymph nodes with the help of robotic arms that are controlled by the surgeon. ? Cryoablation. This is surgery to freeze and destroy cancer cells. ? Radiation treatment. Types of radiation treatment include: ? External beam radiation. This type aims beams of radiation from outside the body at the prostate to destroy cancerous cells. ? Brachytherapy. This type uses radioactive needles, seeds, wires, or tubes that are implanted into the prostate gland. Like external be (more content not included)... Normal [facility] Urology Office/Clinic Noteon 12-05-2022 Urology Office/Clinic Note Chief Complaint pt here for a HPI Staff Pt is a 77 yr old Male here for a f/u to a ANA/BMP-schedule stent. ANA done 12/01/22 shows right-sided hydronephrosis, grossly similar to the prior study. BUN 40, CREATINE 2.23. Pts previous DX: asymptomatic microscopic hematuria hematuria, bilateral hydronephrosis, BPH with urinary obstruction, dysuria, family history of prostate cancer, glycosuria, history of kidney stones, microhematuria, nocturia, OAB, prostate cancer, UTI. S/P TURP 08/27/22, UROlift 05/05/22, stent removal 08/20/12. Dysuria: denies Hematuria: denies Leaking: denies Abdominal pain: denies Flank pain: denies Sexual complaints: _ History of Present Illness I have reviewed and verified the staff HPI to be accurate for this encounter. Review of Systems PHQ Score Initial Depression Screen Score: 0 ROS - Provider Constitutional: denies weight loss, denies hot flashes. Eyes: denies eye problems. Gastrointestinal: denies nausea, denies vomiting. Cardiovascular: denies chest pain or angina. Integumentary: no dryness Musculoskeletal: denies musculoskeletal symptoms. ENMT: denies otolaryngeal symptoms. Respiratory: no shortness of breath. Heme/Lymph: denies easy bleeding tendency, denies easy bruising tendency. Psychiatric: no confusion, no anxiety. Genitourinary: denies dysuria, denies hematuria, denies discharge, denies urinary frequency, denies urinary hesitancy, denies nocturia, denies incontinence, denies genital sores, denies decreased libido, and denies erectile dysfunction. Physical Exam Vitals & Measurements HR: 70(Peripheral) BP: 135/68 HT: 71 in HT: 180 cm WT: 95 kg WT: 209 lb BMI: 29.32 General Appearance: alert, no distress, well nourished, well developed male. Genitourinary: bond to gravity, cyu Flank Pain: none. Bladder: nonpalpable. Assessment/Plan 1. Hydroureteronephrosis (N13.30: Unspecified hydronephrosis) 10/14/22 - BUN 25. Crea 1.54. eGFR 44. (bond in place) 10/30/22 - Cr 1.8. eGFR 38. 11/17/22 - Cr 1.87. eGFR 36.6. ANA 09/23/22 - Mild-mod bilateral hydroureteronephrosis. No mass or stones. CT AP wo con 10/02/22 - Mild-mod bilateral hydronephrosis and hydroureter without obstructing stone or mass. Non-obstructing calculi left kidney measuring 7 mm. 16Fr cath placed 10/09/22 by KATELYN Aguilar without difficulty - 160 ml output. Pt was started on Doxycycline 100mg for 7 days BID, although UCx neg. Post Bond Renal US 10/14/22 neg for hydro. CMP 10/14/22 BUN 25, crea 1.54, eGFR 44. (From Cr 2 prior) Saw nephrology 10/08/22. ANA 10/30/22 - Mild right pelvocaliectasis, neg for hydro. Pt refused bond/CIC at that time. Renal US 11/17/22 [facility] [place] - R-sided hydronephrosis and proximal hydroureter. Findings have progressed since prior study. Cr 1.87/ eGFR 36.6 Cath placed 11/21/2022 CREA 12/01/2022 1.77, GFR 39, BUN 40 ANA done 12/01/22 shows right-sided hydronephrosis, grossly similar to the prior study despite bond in place Discussed doing a Cysto/RG/Stent placement or get a NM Renal Scan to further eval obstruction/hydro If the NM Scan shows blockage we can plan the Cysto/RG stent placement but if blockage is not shown we can give time for kidney function and hydro to improve. Pt would like to move forward with Cystoscopy, right RPG, right ureteroscopy with possible dilation/possible stent placement. Pt is scheduled this Thursday at [facility]. The risks and benefits for cystoscopy have been discussed. The risks include bleeding, infection, and irritation of the bladder and urinary channel, among others. The patient, after being informed of procedural details and after questions have been answered, wishes to proceed. Full informed consent has been obtained. Risks of general anesthesia discussed 2. Prostate cancer (C61: Malignant neoplasm of prostate) cT1b Favorable intermediate risk prostate cancer, grade group 2 (6-10% GS4, 9% tissue resected involved) initial PSA 1.5 (11/2021). PSA: 04/11/20 - 2.62 10/29/20 - 2.84 12/05/21 - 1.49 PSAD 0.08. Prostate volume 17.5 g (pre-TURP). TURP 08/27/22 - Path showed incidental finding of prostatic adenocarcinoma. Selene 7 (3+4), GG2. Only 6-10% of [place] 4 present. 7 of 78 prostate chips involved. No adverse pathology. Decipher testing 08/27/22 - High genomic risk. Not ideal surgical candidate (prostatectomy) due to age, comorbidities. Discussed how this would likely not change his urinary sx/bladder health MRI prostate 11/11/22 [facility] [place] - Prostate volume 14 cc. Post intervention changes w/o definitive MRI evidence of prostate malignancy. Lesion seen involving the R ischial tuberosity measuring 1 cm. A bony metastatic lesion cannot be excluded (recent bone survey neg) -Follow up PSA q6-12m 3. BPH with urinary obstruction (N40.1: Benign prostatic hyperplasia with lower urinary tract symptoms) UroLift 05/05/22 for reported volume 45 g from DLS. S/p TURP 08/27/22 - Moderate bilobar hypertrophy with small but patent anterior channel, (more content not included)... Normal [facility] Comment on above: Result Comment: Elec tronically Signed By: Diego RICKS, Vesna Brock.br\Date and Time Signed: 12/05/22 13:38 EDT Lab Reportson 12-03-2022 Lab Reports [id number] 0CD:[address] [facility] RAD - Ultrasound Reporton RAD - Ultrasound Report [id number] 0CD:[address] [facility] Basic Metabolic Panelon 11-15 Anion gap [Moles/Vol] 12.5 mmol/L Normal 6.0-15.0 [facility] Comment on above: Performed By: #### B MP ####[address] [address] [facility] Calcium [Mass/Vol] 8.8 mg/dL Normal 8.6-10.3 [facility] Comment on above: Result Comment: PERF ORMED BY:[address] [place], [place] [phone] MEDICAL DIRECTORMEAGAN HARDING M.D. Performed By: #### B MP ####[address] [address] [facility] Chloride [Moles/Vol] 104 mmol/L Normal 98-107 [facility] Comment on above: Performed By: #### B MP ####[address] [address] [facility] CO2 [Moles/Vol] 23.9 mmol/L Normal 21.0-31.0 [facility] Comment on above: Performed By: #### B MP ####[address] [address] [facility] Creatinine [Mass/Vol] 1.77 mg/dL High 0.70-1.30 [facility] Comment on above: Performed By: #### B MP ####[address] [address] [facility] GFR/1.73 sq M.predicted MDRD (S/P/Bld) [Vol rate/Area] 39.069 mL/min/{1.73_m2} Normal [facility] Comment on above: Performed By: #### B MP ####[address] Glucose [Mass/Vol] 208 mg/dL High 70-100 [facility] Comment on above: Result Comment: [facility] Glucose Reference Range is dependent on time and content of last meal. Glucose of more than 200 mg/dL in a nonstressed, ambulatory subject supports the diagnosis of Diabetes Mellitus. ADA recommended reference range Performed By: #### B MP ####[place] [address] [place] [id number] [facility] Potassium [Moles/Vol] 4.4 mmol/L Normal 3.5-5.1 [facility] Comment on above: Performed By: #### B MP ####[address] Sodium [Moles/Vol] 136 mmol/L Normal 136-145 [facility] Comment on above: Performed By: #### B MP ####[place] [id number] [facility] Urea nitrogen [Mass/Vol] 40 mg/dL High 7-25 [facility] Comment on above: Performed By: #### B MP ####[address] Calcium [Mass/volume] in Ser um or PlasmaOrdered By: Vesna Cortez on 12-01-2022 Calcium [Mass/Vol] 8.8 mg/dL 8.6-10.3 [facility] Carbon dioxide, total [Moles /volume] in Serum or PlasmaOrdered By: Vesna Cortez on 12-01-2022 CO2 [Moles/Vol] 23.9 mmol/L 21.0-31.0 [facility] Chloride [Moles/volume] in S valeria or PlasmaOrdered By: Vesna Cortez on 04-17-2023 Chloride [Moles/Vol] 104 mmol/L 98-107 [facility] Creatinine [Mass/volume] in Serum or PlasmaOrdered By: Vesna Cortez on 12-01-2022 Creatinine [Mass/Vol] 1.77 mg/dL 0.70-1.30 [facility] Glucose [Mass/volume] in Ser um or PlasmaOrdered By: Vesna Cortez on 12-01-2022 Glucose [Mass/Vol] 208 mg/dL 70-100 [facility] Comment on above: ADA recommended refe rence rangeRandom Glucose Reference Range is dependent on time and content of last meal. Glucose of more than 200 mg/dL in a nonstressed, ambulatory subject supports the diagnosis of Diabetes Mellitus. No Panel InformationOrdered By: Vesna Cortez on 12-01-2022 Estimated GFR (CKD-EPI) 39.069 mL/Min [facility] Creatinine Clearance (Chem N/A [facility] Potassium [Moles/volume] in Serum or PlasmaOrdered By: Vesna Cortez on 12-01-2022 Potassium [Moles/Vol] 4.4 mmol/L 3.5-5.1 [facility] Serum or plasma anion gap de terminationOrdered By: Vesna Cortez on 12-01-2022 Anion gap [Moles/Vol] 12.5 mmol/L 6.0-15.0 [facility] Sodium [Moles/volume] in Ser um or PlasmaOrdered By: Vesna Cortez on 12-01-2022 Sodium [Moles/Vol] 136 mmol/L 136-145 [facility] US renal BIon 12-01-2022 US renal BI Normal [facility] Urea nitrogen [Mass/volume] in Serum or PlasmaOrdered By: Vesna Cortez on 12-01-2022 Urea nitrogen [Mass/Vol] 40 mg/dL 03-10 [facility] Alanine aminotransferase [En zymatic activity/volume] in Serum or PlasmaOrdered By: Brook Huddleston on 11-27-2022 ALT [Catalytic activity/Vol] 22 U/L [facility] Albumin [Mass/volume] in Ser um or Plasma by Bromocresol green (BCG) dye binding methoOrdered By: Brook Huddleston on 11-27-2022 Albumin BCG dye [Mass/Vol] 4.1 g/dL 3.5-5.7 [facility] Alkaline phosphatase [Enzyma tic activity/volume] in Serum or PlasmaOrdered By: Brook Huddleston on 11-27-2022 ALP [Catalytic activity/Vol] 140 U/L 34-104 [facility] Anisocytosis LM Ql (Bld)Orde red By: Brook Huddleston on 11-27-2022 Anisocytosis Ql (Bld) Moderate [facility] Aspartate aminotransferase [ Enzymatic activity/volume] in Serum or PlasmaOrdered By: Brook Huddleston on 11-27-2022 AST [Catalytic activity/Vol] 17 U/L 13-39 [facility] Basophils Auto (Bld) [#/Vol] Ordered By: Brook Huddleston on 11-27-2022 Basophils (Bld) [#/Vol] 0.0 10*3/uL 0.0-0.2 [facility] Basophils/100 WBC Auto (Bld) Ordered By: Brook Huddleston on 11-27-2022 Basophils/100 WBC (Bld) 0.5 % . [facility] Bilirubin.total [Mass/volume ] in Serum or PlasmaOrdered By: Brook Huddleston on 11-27-2022 Bilirubin [Mass/Vol] 0.5 mg/dL 0.3-1.0 [facility] Calcium [Mass/volume] in Ser um or PlasmaOrdered By: Brook Huddleston on 11-27-2022 Calcium [Mass/Vol] 8.8 mg/dL 8.6-10.3 [facility] Carbon dioxide, total [Moles /volume] in Serum or PlasmaOrdered By: Brook Huddleston on 11-27-2022 CO2 [Moles/Vol] 22.7 mmol/L 21.0-31.0 [facility] Chloride [Moles/volume] in S valeria or PlasmaOrdered By: Brook Huddleston on 11-27-2022 Chloride [Moles/Vol] 105 mmol/L 98-107 [facility] Comprehensive Metabolic Pane mana 11-27-2022 Albumin [Mass/Vol] 4.1 g/dL Normal 3.5-5.7 [facility] Comment on above: Performed By: #### S CAN CBC, CMP ####[address] [address] [place] [address] [facility] Albumin/Globulin [Mass ratio] 1.6 {ratio} Normal [facility] Comment on above: Performed By: #### S CAN CBC, CMP ####[facility] [place] [address] [facility] ALP [Catalytic activity/Vol] 140 U/L High 34-104 [facility] Comment on above: Performed By: #### S CAN CBC, CMP ####[facility] [id number] [place] [address] [facility] ALT [Catalytic activity/Vol] 22 U/L Normal 7-52 [facility] Comment on above: Performed By: #### S CAN CBC, CMP ####[address] [address] [place] [address] [facility] Anion gap [Moles/Vol] 13.6 mmol/L Normal 6.0-15.0 [facility] Comment on above: Performed By: #### S CAN CBC, CMP ####[address] [place] [address] [facility] AST [Catalytic activity/Vol] 17 U/L Normal 13-39 [facility] Comment on above: Performed By: #### S CAN CBC, CMP ####[address] [address] [place] [address] [facility] Bilirubin [Mass/Vol] 0.5 mg/dL Normal 0.3-1.0 [facility] Comment on above: Performed By: #### S CAN CBC, CMP ####[address] [address] [place] [address] [facility] Calcium [Mass/Vol] 8.8 mg/dL Normal 8.6-10.3 [facility] Comment on above: Performed By: #### S CAN CBC, CMP ####[address] [place] [address] [facility] Chloride [Moles/Vol] 105 mmol/L Normal 98-107 [facility] Comment on above: Performed By: #### S CAN CBC, CMP ####[facility] [id number] [place] [address] [facility] CO2 [Moles/Vol] 22.7 mmol/L Normal 21.0-31.0 [facility] Comment on above: Performed By: #### S CAN CBC, CMP ####[address] [address] [place] [address] [facility] Creatinine [Mass/Vol] 2.23 mg/dL High 0.70-1.30 [facility] Comment on above: Performed By: #### S CAN CBC, CMP ####[address] [place] [address] [facility] Creatinine Clr Calc Pharmacy 31.59 [facility] Comment on above: Result Comment: PERF ORMED BY:[address] [place], [place] [phone] MEDICAL ANYA HARDING M.D. Performed By: #### S CAN CBC, CMP ####[place] [id number] [facility] GFR/1.73 sq M.predicted MDRD (S/P/Bld) [Vol rate/Area] 29.610 mL/min/{1.73_m2} [facility] Comment on above: Performed By: #### S CAN CBC, CMP ####[address] [place] [address] [facility] Globulin (S) [Mass/Vol] 2.6 g/dL [facility] Comment on above: Performed By: #### S CAN CBC, CMP ####[place] [id number] [facility] Glucose [Mass/Vol] 219 mg/dL High 70-100 [facility] Comment on above: Result Comment: [employer] Glucose Reference Range is dependent on time and content of last meal. Glucose of more than 200 mg/dL in a nonstressed, ambulatory subject supports the diagnosis of Diabetes Mellitus. ADA recommended reference range Performed By: #### S CAN CBC, CMP ####[place] [id number] [facility] Potassium [Moles/Vol] 5.3 mmol/L High 3.5-5.1 [facility] Comment on above: Performed By: #### S CAN CBC, CMP ####[facility] [id number] Protein [Mass/Vol] 6.7 g/dL Normal 6.4-8.9 [facility] Comment on above: Performed By: #### S CAN CBC, CMP ####[facility] [id number] Sodium [Moles/Vol] 136 mmol/L Normal 136-145 [facility] Comment on above: Performed By: #### S CAN CBC, CMP ####[facility] [id number] Urea nitrogen [Mass/Vol] 40 mg/dL High 7-25 [facility] Comment on above: Performed By: #### S CAN CBC, CMP ####[facility] [id number] Creatinine [Mass/volume] in Serum or PlasmaOrdered By: Brook Huddleston on 11-27-2022 Creatinine [Mass/Vol] 2.23 mg/dL 0.70-1.30 [facility] Eosinophils Auto (Bld) [#/Vo l]Ordered By: Brook Huddleston on 11-27-2022 Eosinophils (Bld) [#/Vol] 0.2 10*3/uL 0.0-0.45 [facility] Eosinophils/100 WBC Auto (Bl d)Ordered By: Brook Huddleston on 11-27-2022 Eosinophils/100 WBC (Bld) 3.1 % . [facility] Erythrocyte distribution wid th Auto (RBC) [Ratio]Ordered By: Brook Huddleston on 11-27-2022 Erythrocyte distribution width (RBC) [Ratio] 16.3 % 12.0-14.8 [facility] Globulin Calc (S) [Mass/Vol] Ordered By: Brook Huddleston on 11-27-2022 Globulin (S) [Mass/Vol] 2.6 g/dL [facility] Glucose [Mass/volume] in Ser um or PlasmaOrdered By: Brook Huddleston on 11-27-2022 Glucose [Mass/Vol] 219 mg/dL 70-100 [facility] Comment on above: ADA recommended refe rence rangeRandom Glucose Reference Range is dependent on time and content of last meal. Glucose of more than 200 mg/dL in a nonstressed, ambulatory subject supports the diagnosis of Diabetes Mellitus. Hematocrit Auto (Bld) [Volum e fraction]Ordered By: Brook Huddleston on 11-27-2022 Hematocrit (Bld) [Volume fraction] 30.2 % 38.8-50.0 [facility] Hemoglobin [Mass/volume] in BloodOrdered By: Brook Huddleston on 11-27-2022 Hemoglobin (Bld) [Mass/Vol] 10.2 g/dL 13.0-17.0 [facility] Leukocytes [#/volume] correc lizbet for nucleated erythrocytes in Blood by Automated counOrdered By: Brook Huddleston on 11-27-2022 WBC corrected for nucl RBC Auto (Bld) [#/Vol] 7.1 10*3/uL 4.1-10.5 [facility] Lymphocytes Auto (Bld) [#/Vo l]Ordered By: Brook Huddleston on 11-27-2022 Lymphocytes (Bld) [#/Vol] 0.9 10*3/uL 1.00-4.8 [facility] Lymphocytes/100 WBC Auto (Bl d)Ordered By: Brook Huddleston on 11-27-2022 Lymphocytes/100 WBC (Bld) 12.7 % . [facility] MCH Auto (RBC) [Entitic mass ]Ordered By: Brook Huddleston on 11-27-2022 MCH (RBC) [Entitic mass] 38.1 pg 27.5-35.2 [facility] MCHC Auto (RBC) [Mass/Vol]Or dered By: Brook Huddleston on 11-27-2022 MCHC (RBC) [Mass/Vol] 33.8 g/dL 32.5-35.6 [facility] MCV Auto (RBC) [Entitic vol] Ordered By: Brook Huddleston on 11-27-2022 MCV (RBC) [Entitic vol] 112.7 fL 83.5-101 [facility] Macrocytes LM Ql (Bld)Ordere d By: Brook Huddleston on 11-27-2022 Macrocytes Ql (Bld) Slight [facility] Monocytes Auto (Bld) [#/Vol] Ordered By: Brook Huddleston on 11-27-2022 Monocytes (Bld) [#/Vol] 0.6 10*3/uL 0.0-0.8 [facility] Monocytes/100 WBC Auto (Bld) Ordered By: Brook Huddleston on 11-27-2022 Monocytes/100 WBC (Bld) 7.7 % . [facility] Neutrophils Auto (Bld) [#/Vo l]Ordered By: Brook Huddleston on 11-27-2022 Neutrophils (Bld) [#/Vol] 5.4 10*3/uL 1.8-7.7 [facility] Neutrophils/100 WBC Auto (Bl d)Ordered By: Brook Huddleston on 11-27-2022 Neutrophils/100 WBC (Bld) 76.0 % . [facility] No Panel InformationOrdered By: Brook Huddleston on 11-27-2022 Estimated GFR (CKD-EPI) 29.610 mL/Min [facility] Creatinine Clearance (Chem 31.59 [facility] Nucleated erythrocytes [Pres ence] in Blood by Automated countOrdered By: Brook Huddlseton on 11-27-2022 Nucleated RBC Auto Ql (Bld) 0.1 /100{WBC} 0-0.5 [facility] Ovalocyte detectionOrdered B y: Brook Huddleston on 11-27-2022 Ovalocytes LM Ql (Bld) Slight [facility] Platelet adequacy [Presence] in Blood by Light microscopyOrdered By: Brook Huddleston on 11-27-2022 Platelets LM Ql (Bld) Decreased Normal [facility] Platelet mean volume Auto (B ld) [Entitic vol]Ordered By: Brook Huddleston on 11-27-2022 Platelet mean volume (Bld) [Entitic vol] 9.6 fL 6.6-10.1 [facility] Platelet morphology finding [Identifier] in BloodOrdered By: Brook Huddleston on 11-27-2022 Platelet morphology finding Nom (Bld) Normal Normal [facility] Platelets Auto (Bld) [#/Vol] Ordered By: Brook Huddleston on 11-27-2022 Platelets (Bld) [#/Vol] 129 10*3/uL 150-450 [facility] Poikilocytosis [Presence] in Blood by Light microscopyOrdered By: Brook Huddleston on 11-27-2022 Poikilocytosis LM Ql (Bld) Moderate [facility] Polychromasia [Presence] in Blood by Light microscopyOrdered By: Brook Huddleston on 11-27-2022 Polychromasia LM Ql (Bld) Slight [facility] Potassium [Moles/volume] in Serum or PlasmaOrdered By: Brook Huddleston on 11-27-2022 Potassium [Moles/Vol] 5.3 mmol/L 3.5-5.1 [facility] Protein [Mass/volume] in Ser um or PlasmaOrdered By: Brook Huddleston on 11-27-2022 Protein [Mass/Vol] 6.7 g/dL 6.4-8.9 [facility] RBC Auto (Bld) [#/Vol]Ordere d By: Brook Huddleston on 11-27-2022 RBC (Bld) [#/Vol] 2.68 10*6/uL 3.90-5.60 [facility] RBC morphologyOrdered By: Am safia Huddleston on 11-27-2022 RBC morphology finding Nom (Bld) N/A [facility] Scan and CBCon 11-27-2022 Anisocytosis Ql (Bld) Moderate Normal [facility] Comment on above: Performed By: #### S CAN CBC, CMP ####[facility] [id number] [place] [address] [place] Basophils (Bld) [#/Vol] 0.0 10*3/uL Normal 0.0-0.2 [facility] Comment on above: Performed By: #### S CAN CBC, CMP ####[facility] [id number] [place] [address] [place] Basophils/100 WBC (Bld) 0.5 % Normal . [facility] Comment on above: Performed By: #### S CAN CBC, CMP ####[facility] [id number] [place] [id number] [place] Eosinophils (Bld) [#/Vol] 0.2 10*3/uL Normal 0.0-0.45 [facility] Comment on above: Performed By: #### S CAN CBC, CMP ####[address] Eosinophils/100 WBC (Bld) 3.1 % Normal . [facility] Comment on above: Performed By: #### S CAN CBC, CMP ####[address] Erythrocyte distribution width (RBC) [Ratio] 16.3 % High 12.0-14.8 [facility] Comment on above: Performed By: #### S CAN CBC, CMP ####[address] Hematocrit (Bld) [Volume fraction] 30.2 % Low 38.8-50.0 [facility] Comment on above: Performed By: #### S CAN CBC, CMP ####[address] Hemoglobin (Bld) [Mass/Vol] 10.2 g/dL Low 13.0-17.0 [facility] Comment on above: Performed By: #### S CAN CBC, CMP ####[address] Lymphocytes (Bld) [#/Vol] 0.9 10*3/uL Low 1.00-4.8 [facility] Comment on above: Performed By: #### S CAN CBC, CMP ####[address] Lymphocytes/100 WBC (Bld) 12.7 % Normal . [facility] Comment on above: Performed By: #### S CAN CBC, CMP ####[address] Macrocytosis Slight Normal [facility] Comment on above: Performed By: #### S CAN CBC, CMP ####[address] MCH (RBC) [Entitic mass] 38.1 pg High 27.5-35.2 [facility] Comment on above: Performed By: #### S CAN CBC, CMP ####[address] MCV (RBC) [Entitic vol] 112.7 fL High 83.5-101 [facility] Comment on above: Performed By: #### S CAN CBC, CMP ####[address] Mean Corpuscular HGB Conc 33.8 g/dL Normal 32.5-35.6 [facility] Comment on above: Performed By: #### S CAN CBC, CMP ####[address] Monocytes (Bld) [#/Vol] 0.6 10*3/uL Normal 0.0-0.8 [facility] Comment on above: Performed By: #### S CAN CBC, CMP ####[address] Monocytes/100 WBC (Bld) 7.7 % Normal . [facility] Comment on above: Performed By: #### S CAN CBC, CMP ####[address] Neutrophils (Bld) [#/Vol] 5.4 10*3/uL Normal 1.8-7.7 [facility] Comment on above: Performed By: #### S CAN CBC, CMP ####[address] Neutrophils/100 WBC (Bld) 76.0 % Normal . [facility] Comment on above: Performed By: #### S CAN CBC, CMP ####[address] NRBC% 0.1 /100{WBC} Normal 0-0.5 [facility] Comment on above: Performed By: #### S CAN CBC, CMP ####[address] Ovalocytes Slight Normal [facility] Comment on above: Performed By: #### S CAN CBC, CMP ####[address] [address] [facility] Platelet Estimate Decreased Normal Normal [facility] Comment on above: Performed By: #### S CAN CBC, CMP ####[address] [address] [facility] Platelet mean volume (Bld) [Entitic vol] 9.6 fL Normal 6.6-10.1 [facility] Comment on above: Performed By: #### S CAN CBC, CMP ####[address] [address] [facility] Platelet Morphology Normal Normal Normal [facility] Comment on above: Result Comment: PERF ORMED BY:[address] [place] [phone] MEDICAL ANYA HARDING M.D. Performed By: #### S CAN CBC, CMP ####[address] [address] [facility] Platelets (Bld) [#/Vol] 129 10*3/uL Low 150-450 [facility] Comment on above: Performed By: #### S CAN CBC, CMP ####[address] [address] [facility] Poikilocytosis Moderate Normal [facility] Comment on above: Performed By: #### S CAN CBC, CMP ####[address] [address] [facility] Polychromasia Slight Normal [facility] Comment on above: Performed By: #### S CAN CBC, CMP ####[address] [address] [facility] RBC (Bld) [#/Vol] 2.68 10*6/uL Low 3.90-5.60 [facility] Comment on above: Performed By: #### S CAN CBC, CMP ####[address] [address] [facility] Tear Drop Cells Slight Normal [facility] Comment on above: Performed By: #### S CAN CBC, CMP ####[facility] [id number] [place] [id number] [facility] WBC (Bld) [#/Vol] 7.1 10*3/uL Normal 4.1-10.5 [facility] Comment on above: Performed By: #### S CAN CBC, CMP ####[facility] [id number] [place] [id number] [facility] Serum or plasma albumin/glob ulin mass ratioOrdered By: Brook Huddleston on 11-27-2022 Albumin/Globulin [Mass ratio] 1.6 {ratio} [facility] Serum or plasma anion gap de terminationOrdered By: Brook Huddleston on 11-27-2022 Anion gap [Moles/Vol] 13.6 mmol/L 6.0-15.0 [facility] Sodium [Moles/volume] in Ser um or PlasmaOrdered By: Brook Huddleston on 11-27-2022 Sodium [Moles/Vol] 136 mmol/L 136-145 [facility] Teardrop cell detectionOrder ed By: Brook Huddleston on 11-27-2022 Dacrocytes LM Ql (Bld) Slight [facility] Urea nitrogen [Mass/volume] in Serum or PlasmaOrdered By: Brook Huddleston on 11-27-2022 Urea nitrogen [Mass/Vol] 40 mg/dL 7-25 [facility] WBC Auto (Bld) [#/Vol]Ordere d By: Brook Huddleston on 11-27-2022 WBC (Bld) [#/Vol] 7.1 10*3/uL 4.1-10.5 [facility] XR cervical spine 5V*on 11-15 XR cervical spine 5V* Normal [facility] Ambulatory Visit Summaryon 0 11-21-2022 Ambulatory Visit Summary PATSY MILLS :1945 Visit Date:11/21/2022 Ambulatory Visit Instructions Your Diagnosis Hydroureteronephrosis Prostate cancer Incomplete bladder emptying OAB (overactive bladder) UTI symptoms BPH with urinary obstruction Kidney stone Family history of prostate cancer in father Tests Performed US Renal -- Results Pending -- Please visit your patient portal for your results or contact your primary care physician. Your Care Team Attending Physician - Vesna Cortez MD Primary Care Physician - HELEN HEATH MD This Is Your Medications List Contact prescribing physician if questions or concerns acyclovir (Zovirax 400 mg Tab) aspirin (aspirin 81 mg Chew Tab) atorvastatin (atorvastatin 20 mg Tab) bifidobacterium-lactob acillus (Probiotic + Colostrum) cholecalciferol (Vitamin D3 2000 intl units) famotidine (famotidine 20 mg Tab) insulin glargine (Lantus insulin) insulin lispro (Humalog) lenalidomide (Revlimid 5 mg oral capsule) metformin (metformin 500 mg Tab) potassium chloride (potassium chloride 20 mEq ER Tab) Procedures Performed TURP - Transurethral resection of prostate (08/27/2022), Transurethral insertion of prostatic urethral lift implant (05/05/2022), Cystoscopic removal of ureteric stent (08/20/2012), Cystoscopic ureteroneocystostomy with insertion 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 Discharge Vitals Height 180 cm Height 71 in Weight 95 kg Weight 209 lb BMI 29.32 What to do next Scheduled Follow-Up Appointments Thursday 11:00 AM EDT With: Vesna Cortez MD Where: [facility] [address] \.br\ You Need to Schedule the Following Appointments\.br \ Follow Up with Vesna Cortez MD, URL, URO When: \.br\ Where:\.br\ Medications\.br\ What How Much When Instructions\.br \ Unchanged acyclovir (Zovirax 400 mg Tab) 1 Tablets By Mouth 2 times a day Contact prescribing physician if questions or concerns \.br\ Unchanged aspirin (aspirin 81 mg Chew Tab) Chewed Every day Contact prescribing physician if questions or concerns \.br\ Unchanged atorvastatin (atorvastatin 20 mg Tab) 1 Tablets By Mouth Every day Contact prescribing physician if questions or concerns \.br\ Unchanged bifidobacterium- lactobacillus (Probiotic + Colostrum) By Mouth Every day Contact prescribing physician if questions or concerns \.br\ Unchanged cholecalciferol (Vitamin D3 2000 intl units) By Mouth Every day Contact prescribing physician if questions or concerns \.br\ Unchanged famotidine (famotidine 20 mg Tab) 1 Tablets By Mouth Once a day (at bedtime) Contact prescribing physician if questions or concerns \.br\ Unchanged insulin glargine (Lantus insulin) 25 Units Subcutaneous Once a day (at bedtime) Contact prescribing physician if questions or concerns \.br\ Unchanged insulin lispro (Humalog) 8 Units Subcutaneous Contact prescribing physician if questions or concerns \.br\ Unchanged lenalidomide (Revlimid 5 mg oral capsule) 1 Capsules By Mouth Every other day Contact prescribing physician if questions or concerns \.br\ Unchanged metformin (metformin 500 mg Tab) 1 Tablets By Mouth 2 times a day Contact prescribing physician if questions or concerns \.br\ Unchanged potassium chloride (potassium chloride 20 mEq ER Tab) 1 Tablets By Mouth Every day Contact prescribing physician if questions or concerns \.br\ Allergies\.br\ Myrbetriq (Multiple open mouth wounds)\.br\ gabapentin (Unknown, Rash)\.br\ Problems\.br\ Ongoing - Any problem that you are currently receiving treatment for.\.br\ Asymptomatic microscopic hematuria\.br\ Bilateral hydronephrosis\. br\ BPH with urinary obstruction\.br\ Diabetes\.br\ Dysuria\.br\ Elevated cholesterol\.br\ Family history of prostate cancer in father\.br\ Glycosuria\.br\ History of kidney stones\.br\ HTN (hypertension)\. br\ Hydroureter\.br\ Hydroureteroneph rosis\.br\ Incomplete bladder emptying\.br\ Kidney stone\.br\ Kidney stones\.br\ Microhematuria\. br\ Nocturia\.br\ OAB (overactive bladder)\.br\ Prostate cancer\.br\ Rheumatoid arthritis\.br\ UTI (urinary tract infection)\.br\ UTI symptoms\.br\ Weak urine stream\.br\ [employer]\.br\ Botulinum Toxin Bladder Injection\.br\ \.br\ A botulinum toxin bladder injection is a procedure to treat an overactive bladder. During the procedure, a drug called botulinum toxin is injected into the bladder through a long, thin needle. This drug relaxes the bladder muscles and reduces overactivity.\.b r\ You may need this procedure if your medicines are not working or you cannot take them. The procedure may be repeated as needed. The treatment usually lasts for 6 months. Your health care provider will monitor you to see how well you respond.\.br\ Tell a health care provider about:\.br\ ? \.br\ Any allergies you have.\.br\ ? \.br\ All medicines you are taking, including vitamins, herbs, eye drops, creams, and gkfu-bvo-dheeqbo medicines.\.br\ ? \.br\ Any problems you or family members have had with anesthetic medicines.\.br\ ? \.br\ Any blood disorders you have.\.br\ ? \.br\ Any surgeries you have had.\.br\ ? \.br\ Any medical conditions you have.\.br\ ? \.br\ Any previous reactions to a botulinum toxin injection.\.br\ ? \.br\ Any symptoms of urinary tract infection. These include chills, fever, a burning feeling when passing urine, and needing to pass urine often.\.br\ ? \.br\ Whether you are or may be .\.br\ What are the risks?\.br\ Generally this is a safe procedure. However, problems may occur, including:\.br\ ? \.br\ Not being able to pass urine. If this happens, you may need to have your bladder emptied with a thin tube inserted into your urethra (urinary catheter).\.br\ ? \.br\ Bleeding.\.br\ ? \.br\ Urinary tract infection.\.br\ ? \.br\ Allergic reaction to the botulinum toxin.\.br\ ? \.br\ Pain or burning when passing urine.\.br\ ? \.br\ Damage to other structures or organs.\.br\ What happens before the procedure?\.br\ Staying hydrated\.br\ Follow instructions from your health care provider about hydration, which may include:\.br\ ? \.br\ Up to 2 hours before the procedure ? you may continue to drink clear liquids, such as water, clear fruit juice, black coffee, and plain tea.\.br\ Eating and drinking restrictions\.br \ Follow instructions from your health care provider about eating and drinking, which may include:\.br\ ? \.br\ 8 hours before the procedure ? stop eating heavy meals or foods, such as meat, fried foods, or fatty foods.\.br\ ? \.br\ 6 hours before the procedure ? stop eating light meals or foods, such as toast or cereal.\.br\ ? \.br\ 6 hours before the procedure ? stop drinking milk or drinks that contain milk.\.br\ ? \.br\ 2 hours before the procedure ? stop drinking clear liquids.\.br\ Medicines\.br\ Ask your health care provider about:\.br\ ? \.br\ Changing or stopping your regular medicines. This is especially important if you are taking diabetes medicines or blood thinners.\.br\ ? \.br\ Taking medicines such as aspirin and ibuprofen. These medicines can thin your blood. Do not take these medicines unless your health care provider tells you to take them.\.br\ ? \.br\ Taking hvdi-zaf-jjtnyio medicines, vitamins, herbs, and supplements.\.br \ General instructions\.br \ ? \.br\ Plan to have someone take you home from the hospital or clinic.\.br\ ? \.br\ If you will be going home right after the procedure, plan to have someone with you for 24 hours.\.br\ ? \.br\ Ask your health care provider what steps will be taken to help prevent infection. These may include:\.br\ ? \.br\ Removing hair at the procedure site.\.br\ ? \.br\ Washing skin with a germ-killing soap.\.br\ ? \.br\ Antibiotic medicine.\.br\ What happens during the procedure?\.br\ \.br\ ? \.br\ You will be asked to empty your bladder.\.br\ ? \.br\ An IV will be inserted into one of your veins.\.br\ ? \.br\ You will be given one or more of the following:\.br\ ? \.br\ A medicine to help you relax (sedative).\.br\ ? \.br\ A medicine to numb the area (local anesthetic).\.br \ ? \.br\ A medicine to make you fall asleep (general anesthetic).\.br \ ? \.br\ A long, thin scope called a cystoscope will be passed into your bladder through the part of the body that carries urine from your bladder (urethra).\.br\ ? \.br\ The cystoscope will be used to fill your bladder with water.\.br\ ? \.br\ A long needle will be passed through the cystoscope and into the bladder.\.br\ ? \.br\ The botulinum toxin will be injected into your bladder. It may be injected into multiple areas of your bladder.\.br\ ? \.br\ Your bladder will be emptied, and the cystoscope will be removed.\.br\ The procedure may vary among health care providers and hospitals.\.br\ What can I expect after procedure?\.br\ After your procedure, it is common to have:\.br\ ? \.br\ Blood-tinged urine.\.br\ [facility] Patient Educationon 11-22-19 23 Patient Education Urology Botulinum Toxin Bladder Injection A botulinum toxin bladder injection is a procedure to treat an overactive bladder. During the procedure, a drug called botulinum toxin is injected into the bladder through a long, thin needle. This drug relaxes the bladder muscles and reduces overactivity. You may need this procedure if your medicines are not working or you cannot take them. The procedure may be repeated as needed. The treatment usually lasts for 6 months. Your health care provider will monitor you to see how well you respond. Tell a health care provider about: ? Any allergies you have. ? All medicines you are taking, including vitamins, herbs, eye drops, creams, and vthw-wbp-epwasda medicines. ? Any problems you or family members have had with anesthetic medicines. ? Any blood disorders you have. ? Any surgeries you have had. ? Any medical conditions you have. ? Any previous reactions to a botulinum toxin injection. ? Any symptoms of urinary tract infection. These include chills, fever, a burning feeling when passing urine, and needing to pass urine often. ? Whether you are or may be . What are the risks? Generally this is a safe procedure. However, problems may occur, including: ? Not being able to pass urine. If this happens, you may need to have your bladder emptied with a thin tube inserted into your urethra (urinary catheter). ? Bleeding. ? Urinary tract infection. ? Allergic reaction to the botulinum toxin. ? Pain or burning when passing urine. ? Damage to other structures or organs. What happens before the procedure? Staying hydrated Follow instructions from your health care provider about hydration, which may include: ? Up to 2 hours before the procedure ? you may continue to drink clear liquids, such as water, clear fruit juice, black coffee, and plain tea. Eating and drinking restrictions Follow instructions from your health care provider about eating and drinking, which may include: ? 8 hours before the procedure ? stop eating heavy meals or foods, such as meat, fried foods, or fatty foods. ? 6 hours before the procedure ? stop eating light meals or foods, such as toast or cereal. ? 6 hours before the procedure ? stop drinking milk or drinks that contain milk. ? 2 hours before the procedure ? stop drinking clear liquids. Medicines Ask your health care provider about: ? Changing or stopping your regular medicines. This is especially important if you are taking diabetes medicines or blood thinners. ? Taking medicines such as aspirin and ibuprofen. These medicines can thin your blood. Do not take these medicines unless your health care provider tells you to take them. ? Taking bigo-mfb-prvidaz medicines, vitamins, herbs, and supplements. General instructions ? Plan to have someone take you home from the hospital or clinic. ? If you will be going home right after the procedure, plan to have someone with you for 24 hours. ? Ask your health care provider what steps will be taken to help prevent infection. These may include: ? Removing hair at the procedure site. ? Washing skin with a germ-killing soap. ? Antibiotic medicine. What happens during the procedure? ? You will be asked to empty your bladder. ? An IV will be inserted into one of your veins. ? You will be given one or more of the following: ? A medicine to help you relax (sedative). ? A medicine to numb the area (local anesthetic). ? A medicine to make you fall asleep (general anesthetic). ? A long, thin scope called a cystoscope will be passed into your bladder through the part of the body that carries urine from your bladder (urethra). ? The cystoscope will be used to fill your bladder with water. ? A long needle will be passed through the cystoscope and into the bladder. ? The botulinum toxin will be injected into your bladder. It may be injected into multiple areas of your bladder. ? Your bladder will be emptied, and the cystoscope will be removed. The procedure may vary among health care providers and hospitals. What can I expect after procedure? After your procedure, it is common to have: ? Blood-tinged urine. ? Burning or soreness when you pass urine. Follow these instructions at home: Medicines ? Take rxrd-tjg-vrexthv and prescription medicines only as told by your health care provider. ? If you were prescribed an antibiotic medicine, take it as told by your health care provider. Do not stop taking the antibiotic even if you start to feel better. General instructions ? Do not drive for 24 hours if you were given a sedative during your procedure. ? Drink enough fluid to keep your urine pale yellow. ? Return to your normal activities as told by your health care provider. Ask your health care provider what activities are safe for you. ? Keep all follow-up visits as t (more content not included)... Normal [facility] Screenson 11-21-2022 Screens [id number] 0CD:[address] [facility] Screens [id number] 0CD:[address] [facility] Urology Office/Clinic Noteon 11-21-2022 Urology Office/Clinic Note Chief Complaint Pt is here for PO MRI of prostate HPI Staff Patsy is a 77 y.o. male here for PO MRI of prostate. Previous Dx: asymptomatic microscopic hematuria, bilateral hydronephrosis, BPH w/ urinary obstruction, dysuria, family history of prostate cancer, glycosuria, history of kidney stones, hydroureter, incomplete bladder emptying, nocturia, OAB, prostate cancer, UTI, weak urine stream. S/P TURP done on 08/27/22, UroLift done on 05/05/22, cysto/stent removal done on 08/20/12, cysto/stent insertion done on 08/05/12. MRI of prostate done on 11/11/22 showed no MRI evidence if prostate malignancy. BUN 27 & CRE 1.87 done on 11/17/22. Renal US done on 11/17/22 showed right sided hydronephrosis and hydroureter. Dysuria: mild Incomplete bladder emptying: denies Hematuria: denies Frequency: yes Urgency: denies Nocturia: 7x a night Stream: steady stream Leaking: denies Post void dripping: denies Wearing pads/ Depends: denies Urge incontinence: denies Stress incontinence: denies Incontinence without Sensory Awareness: denies Abdominal pain: denies Flank pain: denies Sexual complaints: _ History of Present Illness Tests reviewed: reviewed US, MRI, labs. I have reviewed the previous health record information and history for this patient from Dr. Cortez. I have reviewed and verified the staff HPI to be accurate for this encounter. There have been no associated fever, chills, flank pain, or blood in the urine. Review of Systems PHQ Score Initial Depression Screen Score: 0 ROS - Provider Constitutional: denies weight loss, denies hot flashes. Eyes: denies eye problems. Gastrointestinal: denies nausea, denies vomiting. Cardiovascular: denies chest pain or angina. Integumentary: no dryness Musculoskeletal: mild musculoskeletal symptoms. ENMT: denies otolaryngeal symptoms. Respiratory: no shortness of breath. Heme/Lymph: denies easy bleeding tendency, denies easy bruising tendency. Psychiatric: no confusion, no anxiety. Genitourinary: See HPI. Physical Exam Vitals & Measurements HT: 71 in HT: 180 cm WT: 95 kg WT: 209 lb BMI: 29.32 General Appearance: alert, no distress, well nourished, well developed male. Genitourinary: Flank Pain: none. Bladder: nonpalpable. Assessment/Plan Pt has multiple myeloma s/p tx, currently in remission. Sees Dr. Huddleston - no contraindications to proceed with any treatments or interventions THERESA N/A, pt inactive (1). Pt is here with his today. Recently had cataract surgery and will have another surgery soon. Made pt and aware that surgeon needs to know that pt took tamsulosin in the past. states she gave surgeon his medication list and surgeon was aware. 1. Hydroureteronephrosis (N13.30: Unspecified hydronephrosis) 10/14/22 - BUN 25. Crea 1.54. eGFR 44. (bond in place) 10/30/22 - Cr 1.8. eGFR 38. 11/17/22 - Cr 1.87. eGFR 36.6. ANA 09/23/22 - Mild-mod bilateral hydroureteronephrosis. No mass or stones. CT AP wo con 10/02/22 - Mild-mod bilateral hydronephrosis and hydroureter without obstructing stone or mass. Non-obstructing calculi left kidney measuring 7 mm. 16Fr cath placed 10/09/22 by KATELYN Aguilar without difficulty - 160 ml output. Pt was started on Doxycycline 100mg for 7 days BID, although UCx neg. Post Bond Renal US 10/14/22 neg for hydro. CMP 10/14/22 BUN 25, crea 1.54, eGFR 44. (From Cr 2 prior) Saw nephrology 10/08/22. ANA 10/30/22 - Mild right pelvocaliectasis, neg for hydro. Pt refused bond/CIC at that time. Follow up today after timed voiding: Renal US 11/17/22 [facility] [place] - R-sided hydronephrosis and proximal hydroureter. Findings have progressed since prior study. Cr 1.87/ eGFR 36.6 Reviewed findings from US with pt and , R hydro worsened. Recapped pt's hx, recent CT scan neg for ureteral stone, hydroureter to bladder. [place] improved after obnd placement. But on subsequent US, hydro returned, pt was not interested in bond or learning CIC, preferred to manage with behavior. Now the hydro and kidney function is worse. Discussed mgmt options and recommendations regarding non-obstructive incomplete bladder emptying, small capacity bladder, likely resulting in hydronephrosis. Thoroughly answered all of pt and 's questions. Rediscussed risks and benefits of SNM, Botox, SP tube placement and CIC. Educational pamphlets provided. -16 Fr bond catheter placed today without complications, return of cloudy/yellow urine -ANA and BMP in 1 week. -If right hydro persistent, would recommend cysto, R RPG, possible URS/stent pending intraop findings -Follow up 1 week or sooner if needed. Pt understands and agrees with plan. 2. Prostate cancer (C61: Malignant neoplasm of prostate) cT1b Favorable intermediate risk prostate cancer, grade group 2 (6-10% GS4, 9% tissue resected involved) initial PSA 1.5 (11/2021). PSA: 04/11/20 - 2.62 10/29/20 - 2.84 12/05/21 - 1.49 PSAD 0.08. Prostate volume 17.5 g (pre-TURP). TURP 08/27/22 - Path show (more content not included)... Normal [facility] Comment on above: Result Comment: Elec tronically Signed By: Diego RICKS, Vesna Brock.br\Date and Time Signed: 11/21/22 13:38 EDT Lab Reportson 11-19-2022 Lab Reports [id number] 0CD:[address] [facility] RAD - MRI Reporton RAD - MRI Report [id number] 0CD:[address] [facility] RAD - Ultrasound Reporton RAD - Ultrasound Report [id number] 0CD:[address] [facility] Basic Metabolic Panelon Anion gap [Moles/Vol] 12.9 mmol/L Normal 6.0-15.0 [facility] Comment on above: Performed By: #### B MP ####[address] [place] [address] [facility] Calcium [Mass/Vol] 9.5 mg/dL Normal 8.6-10.3 [facility] Comment on above: Result Comment: PERF ORMED BY:[address] [place], [place] [id number] MEDICAL DIRECTORMEAGAN HARDING M.D. Performed By: #### B MP ####[facility] [place] [address] [place] Chloride [Moles/Vol] 104 mmol/L Normal 98-107 [facility] Comment on above: Performed By: #### B MP ####[facility] [place] [address] [facility] CO2 [Moles/Vol] 23.9 mmol/L Normal 21.0-31.0 [facility] Comment on above: Performed By: #### B MP ####[facility] [place] [address] [facility] Creatinine [Mass/Vol] 1.87 mg/dL High 0.70-1.30 [facility] Comment on above: Performed By: #### B MP ####[address] [place] [address] [facility] GFR/1.73 sq M.predicted MDRD (S/P/Bld) [Vol rate/Area] 36.576 mL/min/{1.73_m2} Normal [facility] Comment on above: Performed By: #### B MP ####[address] [place] [address] [facility] Glucose [Mass/Vol] 133 mg/dL High 70-100 [facility] Comment on above: Result Comment: Concrete Glucose Reference Range is dependent on time and content of last meal. Glucose of more than 200 mg/dL in a nonstressed, ambulatory subject supports the diagnosis of Diabetes Mellitus. ADA recommended reference range Performed By: #### B MP ####[address] [place] [address] [facility] Potassium [Moles/Vol] 4.8 mmol/L Normal 3.5-5.1 [facility] Comment on above: Performed By: #### B MP ####[address] [place] [address] [facility] Sodium [Moles/Vol] 136 mmol/L Normal 136-145 [facility] Comment on above: Performed By: #### B MP ####[address] [place] [address] [facility] Urea nitrogen [Mass/Vol] 27 mg/dL High 7-25 [facility] Comment on above: Performed By: #### B MP ####[address] [address] [facility] Calcium [Mass/volume] in Ser um or PlasmaOrdered By: Vesna Cortez on 11-17-2022 Calcium [Mass/Vol] 9.5 mg/dL 8.6-10.3 [facility] Carbon dioxide, total [Moles /volume] in Serum or PlasmaOrdered By: Vesna Cortez on 11-17-2022 CO2 [Moles/Vol] 23.9 mmol/L 21.0-31.0 [facility] Chloride [Moles/volume] in S valeria or PlasmaOrdered By: Vesna Cortez on 11-17-2022 Chloride [Moles/Vol] 104 mmol/L 98-107 [facility] Creatinine [Mass/volume] in Serum or PlasmaOrdered By: Vesna Cortez on 11-17-2022 Creatinine [Mass/Vol] 1.87 mg/dL 0.70-1.30 [facility] Glucose [Mass/volume] in Ser um or PlasmaOrdered By: Vesna Cortez on 11-17-2022 Glucose [Mass/Vol] 133 mg/dL 70-100 [facility] Comment on above: ADA recommended refe rence rangeRandom Glucose Reference Range is dependent on time and content of last meal. Glucose of more than 200 mg/dL in a nonstressed, ambulatory subject supports the diagnosis of Diabetes Mellitus. No Panel InformationOrdered By: Vesna Cortez on 11-17-2022 Estimated GFR (CKD-EPI) 36.576 mL/Min [facility] Creatinine Clearance (Chem N/A [facility] Potassium [Moles/volume] in Serum or PlasmaOrdered By: Vesna Cortez on 11-17-2022 Potassium [Moles/Vol] 4.8 mmol/L 3.5-5.1 [facility] Serum or plasma anion gap de terminationOrdered By: Vesna Cortez on 11-17-2022 Anion gap [Moles/Vol] 12.9 mmol/L 6.0-15.0 [facility] Sodium [Moles/volume] in Ser um or PlasmaOrdered By: Vesna Cortez on 11-17-2022 Sodium [Moles/Vol] 136 mmol/L 136-145 [facility] US renal BIon 11-17-2022 US renal BI Normal [facility] Urea nitrogen [Mass/volume] in Serum or PlasmaOrdered By: Vesna Cortez on 11-17-2022 Urea nitrogen [Mass/Vol] 27 mg/dL 7-25 [facility] MR prostate wo conon 023 MR prostate wo con Normal [facility] Alanine aminotransferase [En zymatic activity/volume] in Serum or PlasmaOrdered By: Brook Huddleston on 11-11-2022 ALT [Catalytic activity/Vol] 18 U/L 7-52 [facility] [facility] Album[facility] [Mass/volume] in Ser um or Plasma by Bromocresol green (BCG) dye binding methoOrdered By: Brook Huddleston on 11-11-2022 Albumin BCG dye [Mass/Vol] 4.2 g/dL 3.5-5.7 [facility] Alkaline phosphatase [Enzyma tic activity/volume] in Serum or PlasmaOrdered By: Brook Huddleston on 11-11-2022 ALP [Catalytic activity/Vol] 97 U/L 34-104 [facility] Anisocytosis LM Ql (Bld)Orde red By: Brook Huddleston on 11-11-2022 Anisocytosis Ql (Bld) Slight Fir [facility] Aspartate aminotransferase [ Enzymatic activity/volume] in Serum or PlasmaOrdered By: Brook Huddleston on 11-11-2022 AST [Catalytic activity/Vol] 17 U/L 13-39 [facility] Basophils Auto (Bld) [#/Vol] Ordered By: Brook Huddleston on 11-11-2022 Basophils (Bld) [#/Vol] N/A [facility] Basophils/100 WBC Auto (Bld) Ordered By: Brook Huddleston on 11-11-2022 Basophils/100 WBC (Bld) N/A [facility] Bilirubin.total [Mass/volume ] in Serum or PlasmaOrdered By: Brook Huddleston on 11-11-2022 Bilirubin [Mass/Vol] 0.4 mg/dL 0.3-1.0 [facility] Calcium [Mass/volume] in Ser um or PlasmaOrdered By: Brook Huddleston on 11-11-2022 Calcium [Mass/Vol] 9.2 mg/dL 8.6-10.3 [facility] Carbon dioxide, total [Moles /volume] in Serum or PlasmaOrdered By: Brook Huddleston on 11-11-2022 CO2 [Moles/Vol] 22.1 mmol/L 21.0-31.0 [facility] Chloride [Moles/volume] in S valeria or PlasmaOrdered By: Brook Huddleston on 11-11-2022 Chloride [Moles/Vol] 107 mmol/L 98-107 [facility] Comprehensive Metabolic Pane mana 11-11-2022 Albumin [Mass/Vol] 4.2 g/dL Normal 3.5-5.7 [facility] Comment on above: Performed By: #### C MP, DIFF CBC ####[place] [id number] [facility] Albumin/Globulin [Mass ratio] 1.7 {ratio} Normal [facility] Comment on above: Performed By: #### C MP, DIFF CBC ####[address] [address] [facility] ALP [Catalytic activity/Vol] 97 U/L Normal 34-104 [facility] Comment on above: Performed By: #### C MP, DIFF CBC ####[place] [id number] [facility] ALT [Catalytic activity/Vol] 18 U/L Normal 7-52 [facility] Comment on above: Performed By: #### C MP, DIFF CBC ####[address] [address] [facility] Anion gap [Moles/Vol] 11.8 mmol/L Normal 6.0-15.0 [facility] Comment on above: Performed By: #### C MP, DIFF CBC ####[address] [address] [facility] AST [Catalytic activity/Vol] 17 U/L Normal 13-39 [facility] Comment on above: Performed By: #### C MP, DIFF CBC ####[place] [id number] [facility] Bilirubin [Mass/Vol] 0.4 mg/dL Normal 0.3-1.0 [facility] Comment on above: Performed By: #### C MP, DIFF CBC ####[address] [address] [facility] Calcium [Mass/Vol] 9.2 mg/dL Normal 8.6-10.3 [facility] Comment on above: Performed By: #### C MP, DIFF CBC ####[place] [address] [place] [address] [facility] Chloride [Moles/Vol] 107 mmol/L Normal 98-107 [facility] Comment on above: Performed By: #### C MP, DIFF CBC ####[place] [id number] [facility] CO2 [Moles/Vol] 22.1 mmol/L Normal 21.0-31.0 [facility] Comment on above: Performed By: #### C MP, DIFF CBC ####[place] [id number] [facility] Creatinine [Mass/Vol] 2.05 mg/dL High 0.70-1.30 [facility] Comment on above: Performed By: #### C MP, DIFF CBC ####[place] [id number] [facility] Creatinine Clr Calc Pharmacy 34.37 [facility] Comment on above: Result Comment: PERF ORMED BY:[address] [place], [place] [phone] MEDICAL ANYA HARDING M.D. Performed By: #### C MP, DIFF CBC ####[address] [address] [facility] GFR/1.73 sq M.predicted MDRD (S/P/Bld) [Vol rate/Area] 32.756 mL/min/{1.73_m2} [facility] Comment on above: Performed By: #### C MP, DIFF CBC ####[place] [id number] [facility] Globulin (S) [Mass/Vol] 2.5 g/dL [facility] Comment on above: Performed By: #### C MP, DIFF CBC ####[place] [id number] [facility] Glucose [Mass/Vol] 190 mg/dL High 70-100 [facility] Comment on above: Result Comment: Concrete Glucose Reference Range is dependent on time and content of last meal. Glucose of more than 200 mg/dL in a nonstressed, ambulatory subject supports the diagnosis of Diabetes Mellitus. ADA recommended reference range Performed By: #### C MP, DIFF CBC ####[facility] [id number] [place] [address] [facility] Potassium [Moles/Vol] 4.9 mmol/L Normal 3.5-5.1 [facility] Comment on above: Performed By: #### C MP, DIFF CBC ####[place] [address] [place] [address] [facility] Protein [Mass/Vol] 6.7 g/dL Normal 6.4-8.9 [facility] Comment on above: Performed By: #### C MP, DIFF CBC ####[address] [address] [facility] Sodium [Moles/Vol] 136 mmol/L Normal 136-145 [facility] Comment on above: Performed By: #### C MP, DIFF CBC ####[place] [address] [place] [address] [facility] Urea nitrogen [Mass/Vol] 29 mg/dL High 7-25 [facility] Comment on above: Performed By: #### C MP, DIFF CBC ####[place] [address] [place] [address] [facility] Creatinine [Mass/volume] in Serum or PlasmaOrdered By: Brook Huddleston on 11-11-2022 Creatinine [Mass/Vol] 2.05 mg/dL 0.70-1.30 [facility] Diff and CBCon 11-11-2022 Anisocytosis Ql (Bld) Slight Normal [facility] Comment on above: Performed By: #### C MP, DIFF CBC ####[place] [address] [place] [address] [place] Eosinophils/100 WBC (Bld) 3 % Normal 1-3 [facility] Comment on above: Performed By: #### C MP, DIFF CBC ####[place] [address] Erythrocyte distribution width (RBC) [Ratio] 16.0 % High 12.0-14.8 [facility] Comment on above: Performed By: #### C MP, DIFF CBC ####[address] Giant Platelet Tally 1 /100{WBC} Normal [facility] Comment on above: Performed By: #### C MP, DIFF CBC ####[address] Hematocrit (Bld) [Volume fraction] 26.7 % Low 38.8-50.0 [facility] Comment on above: Performed By: #### C MP, DIFF CBC ####[address] Hemoglobin (Bld) [Mass/Vol] 9.1 g/dL Low 13.0-17.0 [facility] Comment on above: Performed By: #### C MP, DIFF CBC ####[address] Lymphocytes/100 WBC (Bld) 16 % Low 18-42 [facility] Comment on above: Performed By: #### C MP, DIFF CBC ####[address] Macrocytosis Slight Normal [facility] Comment on above: Performed By: #### C MP, DIFF CBC ####[address] MCH (RBC) [Entitic mass] 38.8 pg High 27.5-35.2 [facility] Comment on above: Performed By: #### C MP, DIFF CBC ####[address] MCV (RBC) [Entitic vol] 114.2 fL High 83.5-101 [facility] Comment on above: Performed By: #### C MP, DIFF CBC ####[address] Mean Corpuscular HGB Conc 34.0 g/dL Normal 32.5-35.6 [facility] Comment on above: Performed By: #### C MP, DIFF CBC ####[address] [address] [facility] Monocytes/100 WBC (Bld) 13 % High 2-11 [facility] Comment on above: Performed By: #### C MP, DIFF CBC ####[address] [address] [facility] Ovalocytes Slight Normal [facility] Comment on above: Performed By: #### C MP, DIFF CBC ####[address] [address] [facility] Platelet Estimate Decreased Normal Normal [facility] Comment on above: Performed By: #### C MP, DIFF CBC ####[address] [address] [facility] Platelet mean volume (Bld) [Entitic vol] 8.7 fL Normal 6.6-10.1 [facility] Comment on above: Result Comment: PERF ORMED BY:[address] [place], [place] [phone] MEDICAL DIRECTORMEAGAN HARDING M.D. Performed By: #### C MP, DIFF CBC ####[address] [address] [facility] Platelet Morphology Normal Normal Normal [facility] Comment on above: Result Comment: PERF ORMED BY:[address] [place], [place] [phone] MEDICAL DIRECTORMEAGAN HARDING M.D. Performed By: #### C MP, DIFF CBC ####[address] [address] [facility] Platelets (Bld) [#/Vol] 117 10*3/uL Low 150-450 [facility] Comment on above: Performed By: #### C MP, DIFF CBC ####[address] [address] [facility] Poikilocytosis Slight Normal [facility] Comment on above: Performed By: #### C MP, DIFF CBC ####[facility] [place] [address] [facility] Polychromasia Moderate Normal [facility] Comment on above: Performed By: #### C MP, DIFF CBC ####[facility] [id number] [place] [address] [facility] RBC (Bld) [#/Vol] 2.34 10*6/uL Low 3.90-5.60 [facility] Comment on above: Performed By: #### C MP, DIFF CBC ####[place] [address] [place] [address] [facility] Reactive Lymphocytes 1 % Normal 0-12 [facility] Comment on above: Performed By: #### C MP, DIFF CBC ####[facility] [place] [id number] [facility] Segmented neutrophils/100 WBC (Bld) 67 % Normal 50-70 [facility] Comment on above: Performed By: #### C MP, DIFF CBC ####[place] [address] [place] [address] [facility] WBC (Bld) [#/Vol] 6.0 10*3/uL Normal 4.1-10.5 [facility] Comment on above: Performed By: #### C MP, DIFF CBC ####[place] [id number] [facility] Eosinophils Auto (Bld) [#/Vo l]Ordered By: Brook Huddleston on 11-11-2022 Eosinophils (Bld) [#/Vol] N/A [facility] Eosinophils/100 WBC Auto (Bl d)Ordered By: Brook Huddleston on 11-11-2022 Eosinophils/100 WBC (Bld) N/A [facility] Eosinophils/100 WBC Manual c nt (Bld)Ordered By: Brook Huddleston on 11-11-2022 Eosinophils/100 WBC (Bld) 3 % 1-3 [facility] Erythrocyte distribution wid th Auto (RBC) [Ratio]Ordered By: Brook Huddleston on 11-11-2022 Erythrocyte distribution width (RBC) [Ratio] 16.0 % 12.0-14.8 [facility] Giant platelets/100 leukocyt es [Ratio] in Blood by Manual countOrdered By: Brook Huddleston on 11-11-2022 Giant platelets/100 WBC Manual cnt (Bld) [Ratio] 1 /100{WBC} [facility] Globulin Calc (S) [Mass/Vol] Ordered By: Brook Huddleston on 11-11-2022 Globulin (S) [Mass/Vol] 2.5 g/dL [facility] Glucose [Mass/volume] in Ser um or PlasmaOrdered By: Brook Huddleston on 11-11-2022 Glucose [Mass/Vol] 190 mg/dL 70-100 [facility] Comment on above: ADA recommended refe rence rangeRandom Glucose Reference Range is dependent on time and content of last meal. Glucose of more than 200 mg/dL in a nonstressed, ambulatory subject supports the diagnosis of Diabetes Mellitus. Hematocrit Auto (Bld) [Volum e fraction]Ordered By: Brook Huddleston on 11-11-2022 Hematocrit (Bld) [Volume fraction] 26.7 % 38.8-50.0 [facility] Hemoglobin [Mass/volume] in BloodOrdered By: Brook Huddleston on 11-11-2022 Hemoglobin (Bld) [Mass/Vol] 9.1 g/dL 13.0-17.0 [facility] Laboratory - Chemistry and C hemistry - challengeOrdered By: Brook Huddleston on 11-11-2022 GFR/1.73 sq M.predicted MDRD (S/P/Bld) [Vol rate/Area] 32.756 mL/min/{1.73_m2} [facility] Leukocytes [#/volume] correc lizbet for nucleated erythrocytes in Blood by Automated counOrdered By: Brook Huddleston on 11-11-2022 WBC corrected for nucl RBC Auto (Bld) [#/Vol] 6.0 10*3/uL 4.1-10.5 [facility] Lymphocytes Auto (Bld) [#/Vo l]Ordered By: Brook Huddleston on 11-11-2022 Lymphocytes (Bld) [#/Vol] N/A [facility] Lymphocytes/100 WBC Auto (Bl d)Ordered By: Brook Huddleston on 11-11-2022 Lymphocytes/100 WBC (Bld) N/A [facility] Lymphocytes/100 WBC Manual c nt (Bld)Ordered By: Brook Huddleston on 11-11-2022 Lymphocytes/100 WBC (Bld) 16 % 18-42 [facility] MCH Auto (RBC) [Entitic mass ]Ordered By: Brook Huddleston on 11-11-2022 MCH (RBC) [Entitic mass] 38.8 pg 27.5-35.2 [facility] MCHC Auto (RBC) [Mass/Vol]Or dered By: Brook Huddleston on 11-11-2022 MCHC (RBC) [Mass/Vol] 34.0 g/dL 32.5-35.6 [facility] MCV Auto (RBC) [Entitic vol] Ordered By: Brook Huddleston on 11-11-2022 MCV (RBC) [Entitic vol] 114.2 fL 83.5-101 [facility] Macrocytes LM Ql (Bld)Ordere d By: Brook Huddleston on 11-11-2022 Macrocytes Ql (Bld) Slight [facility] Monocytes Auto (Bld) [#/Vol] Ordered By: Brook Huddleston on 11-11-2022 Monocytes (Bld) [#/Vol] N/A [facility] Monocytes/100 WBC Auto (Bld) Ordered By: Brook Huddleston on 11-11-2022 Monocytes/100 WBC (Bld) N/A [facility] Monocytes/100 WBC Manual cnt (Bld)Ordered By: Brook Huddleston on 11-11-2022 Monocytes/100 WBC (Bld) 13 % 2-11 [facility] Neutrophils Auto (Bld) [#/Vo l]Ordered By: Brook Huddleston on 11-11-2022 Neutrophils (Bld) [#/Vol] N/A [facility] Neutrophils/100 WBC Auto (Bl d)Ordered By: Brook Huddleston on 11-11-2022 Neutrophils/100 WBC (Bld) N/A [facility] No Panel InformationOrdered By: Brook Huddleston on 11-11-2022 Pharmacy Creatinine Clearance (Chem 34.37 [facility] Nucleated erythrocytes [Pres ence] in Blood by Automated countOrdered By: Brook Huddleston on 11-11-2022 Nucleated RBC Auto Ql (Bld) N/A [facility] Ovalocyte detectionOrdered B y: Brook Huddleston on 11-11-2022 Ovalocytes LM Ql (Bld) [facility] Platelet adequacy [Presence] in Blood by Light microscopyOrdered By: Brook Huddleston on 11-11-2022 Platelets LM Ql (Bld) Decreased Normal [facility] Platelet mean volume Auto (B ld) [Entitic vol]Ordered By: Brook Huddleston on 11-11-2022 Platelet mean volume (Bld) [Entitic vol] 8.7 fL 6.6-10.1 [facility] Platelet morphology finding [Identifier] in BloodOrdered By: Brook Huddleston on 11-11-2022 Platelet morphology finding Nom (Bld) Normal Normal [facility] Platelets Auto (Bld) [#/Vol] Ordered By: Brook Huddleston on 11-11-2022 Platelets (Bld) [#/Vol] 117 10*3/uL 150-450 [facility] Poikilocytosis [Presence] in Blood by Light microscopyOrdered By: Brook Huddleston on 11-11-2022 Poikilocytosis LM Ql (Bld) Slight [facility] Polychromasia [Presence] in Blood by Light microscopyOrdered By: Brook Huddleston on 11-11-2022 Polychromasia LM Ql (Bld) Moderate [facility] Potassium [Moles/volume] in Serum or PlasmaOrdered By: Brook Huddleston on 11-11-2022 Potassium [Moles/Vol] 4.9 mmol/L 3.5-5.1 [facility] Protein [Mass/volume] in Ser um or PlasmaOrdered By: Brook Huddleston on 11-11-2022 Protein [Mass/Vol] 6.7 g/dL 6.4-8.9 [facility] RBC Auto (Bld) [#/Vol]Ordere d By: Brook Huddleston on 11-11-2022 RBC (Bld) [#/Vol] 2.34 10*6/uL 3.90-5.60 [facility] RBC morphologyOrdered By: Black Huddleston on 11-11-2022 RBC morphology finding Nom (Bld) N/A [facility] Segmented neutrophils/100 WB C Manual cnt (Bld)Ordered By: Brook Huddleston on 11-11-2022 Segmented neutrophils/100 WBC (Bld) 67 % 50-70 [facility] Serum or plasma albumin/glob ulin mass ratioOrdered By: Brook Huddleston on 11-11-2022 Albumin/Globulin [Mass ratio] 1.7 {ratio} [facility] Serum or plasma anion gap de terminationOrdered By: Brook Huddleston on 11-11-2022 Anion gap [Moles/Vol] 11.8 mmol/L 6.0-15.0 [facility] Sodium [Moles/volume] in Ser um or PlasmaOrdered By: Brook Huddleston on 11-11-2022 Sodium [Moles/Vol] 136 mmol/L 136-145 [facility] Urea nitrogen [Mass/volume] in Serum or PlasmaOrdered By: Brook Huddleston on 11-11-2022 Urea nitrogen [Mass/Vol] 29 mg/dL 7-25 [facility] Variant lymphocytes/100 WBC Manual cnt (Bld)Ordered By: Brook Huddleston on 11-11-2022 Variant lymphocytes/100 WBC (Bld) 1 % 0-12 [facility] WBC Auto (Bld) [#/Vol]Ordere d By: Broko Huddleston on 11-11-2022 WBC (Bld) [#/Vol] 6.0 10*3/uL 4.1-10.5 [facility] Urine Cultureon 11-10-2022 Bacteria identified Cx Nom (U) Normal [facility] Comment on above: Performed By: #### C UU ####[facility] [id number] [place] [address] [facility] Urine culture routineOrdered By: Helen Heath on 11-10-2022 Bacteria identified Cx Nom (U) 2 Days [facility] C Urineon 11-07-2022 Bacteria identified Cx Nom (U) Microbiology PROCEDURE: Urine Culture [R1] SOURCE: U Random BODY SITE: COLLECTED DATE/TIME: 11/03/2022 14:36 EDT RECEIVED DATE/TIME: 11/04/2022 16:52 EDT START DATE/TIME: 11/04/2022 16:52 EDT FREE TEXT SOURCE: Diego RICKS, Vesna Cortez MD, Vesna Taylor FINAL REPORTS Final Report [] Verified Date/Time: 11/07/2022 10:36 EDT 5,000 cfu/ml Yanci albicans Presumptive isolated. 500 cfu/ml Mixed skin contaminants Performing Locations R1: This test was performed at: [facility], [address] [place] [address], [phone] , Normal [facility] Comment on above: Performed By: #### 2 [id number] #### [facility] [address] [place] [id number] Coding Summary.on 11-07-2022 Coding Summary. [id number] Ww +PGhlYWQ+DZ4IEUUcR69ws ALtoA4wS2HGWZvPJcvuWFK JCQfJPaVwwdDnQX5odAIfQ XJu IC8+OQ9dPKWkGbihfPUgm8 O3iMF8V97zdh6iSFldxGA3 KLHuUuLplqyhk7qhtUw5UI cuNmluOyBt OFYdvH23PVV3mF44Ng94zU HxfOXsg2xhlWp0CdAoOWZq LJL1pMwgAEvun3CyZLKaZ7 4oiJEhp3P5 SYDodWfvmBNlZtCtqLO3dI 6rYDlbcblst2jusgdfCae5 fv24aYUsr0H8dTR3S6Xovx W2LMLcwFFc AgqlrKZZhS9hrldpb3fifv idYwJrHKVfWOg7TRl7SOSo tWsiPhNmJR72UDZ5NIDoul JqM9SwXAMt wEteTqH0k4X8Iu3PG1OPSt abX3SYCYANKDsdtTT+PC90 rm18N0TgNvmhLbb8OJLrQH A7zAU8hD6y UVMfAYmvv0E4jPK0W4Fetu Vtax8op4stEOOzVFgnT58r sAEba3R3UPUahKH1ZHWkhC qyJaPauY28 Oyc+CNZsxSvsb2BlPnmki3 tvv4pmbJp8KaifCVGkjeXq tXgpGTM6l3XjRi0kNENqlT V3yMI3lM6g ZnTdUqG9RGrzP678NbJgwL TyPhemM16pJ7HbpYO+PHRy Yji0YCTtfQdyJU6yA4DnCK RpbmctbGVm wVhbDQ7zGQGuerbzXFUuoV 6yLNGqY8e7LfNaFmO3ONiz H8VwXSYacfrpNw09nQ2lJc NuKxS1GAji O9DmubY3SZOllUTsLVltOF B6I10gs1W0DCMqFFDxAWC3 fKQ3yF6vrZmnssoneWGzcM sgdmVydGlj FDtxTXciC217HLXlyBrbKs NvZGluZyBEYXRlOiAgMDMv MjQvMjAyMzwvdGQ+PHRkIH R5vFwsHWVb cFDtWEpaJl9jvOzfxYovNY 9fZEZuyavqDOBbpB9tKKBa fVKqrIfsDJ4eWVXgarzie0 90SuYjHZB9 UOFbnDWtB2GimK9yIbCsIS QaXBNtA0YorIBfYWbtK745 ZCdbVqZ5VGOievVuU7ZpBJ FsaWduOiB0 t1U0Ej1Wr0ZxeyikX9HbrX ZfVsYvIbndKCx0A0FoIwto dHI+BU40VUUoUQ67DYs8BY E0gOgcEFgg THVpG0UtgM5mStWwBFPsYI RkOyc+PHRhYmxlIHdpZHRo VTsqCZVqGrPopKyrWL1mYv 9yZGVyLWNv mCjjwUToMeVml5uqVEMnXA zxCJ4wfJkpK2XtlCK4PNHf a1u7Ik81R31fO7ZdzLK+PG UfsTL5zQH2 rE9vJbTxEiE0XHyiS406Es SarYBcFrjfn0lvx7eyaPe8 FeC4ZRZhbfHbsJcaGUX1z9 FxFv74Y24s IHdpZHRoPSIxNSUiIHZhbG jqho3sgH2eHz9+PGNvbCB3 cMB2zU4iGoEbIpJ8APplO6 49InRvcCIv Jjjee8wyd8gvbBt6FnSbDX TltcTszAfgTRY4a8VzQo49 C4BxmFoaf0LyXnb5nv42hD Xxx1R9mNV4 S8QpBGRgavbwsAHmlDnfDR 9xXASndylaQCXfeY7zKKAj Z6z8CaLkYsT2CQxpM4Vwnn V8ZNCwyPPo CPMedXQOeU2hexbfw4uvte luEiQrBXPuCXq6ZIy4FOId wUhhAkMdMKK1WcG4GOH9kR OvgX5atOdo mqyrtU8dBlb+EMU7kUYwbV ZUFV0eGsbuoVB+PHRkIHN0 oBsyUDpwWJYrvW3uDPGuW8 i0IzDqOyD3 CZchS7StnqH4IRQkgUHdLE MtoDPWqP6fbbsyb3uiiygy OxDmETKmNAe1BDt7LQIxfF duOiBsZWZ0 AaS0GMF2vZLmqV2ieBuuyo ejsO6iMqe+QmlydGggRGF0 RHl5R6SjYcx2IOIorDwbYY 0ncGFkZGlu Op3qiLahzKhnPU7cELJdzn wyi453QqDdf6kvWGTvhXMq UQozQES1U24vf4T7PGAeEI BeQME5zDM7 bA3lxSeeepllnPKyfGlxew HcnEzoYHawTAmwB927ETKj qYxsDuOvEAi7W3EbJal0PN VinRaxVJ8p tXQvPCuaLy2zmAbylFzgTB 7aUOYovhebq631WhCzf5nn KNCmpBIeZHshQBW3X23df7 S4PUYcDEDn LZY7mBB7sQ8ccDpsqvwnoU VmdDsgdmVydGljYWwtYWxp D096BREjvRqrWlSkrPy9K1 ZlVgb1VHGb pEbjAA1ebIOhLJivCq6ceH azgOdmSK8oVLUdfbkcf530 XuHre4pbWDHzeABjKYwtKL X2G50up2T7 PZGzYTCuMAK9fWW4iV8tcH lnbjogbGVmdDsgdmVydGlj YUhrAYkqD119LXQnqXmyOt BhdGllbnQg LOqmXCz2V7CbDnnpcRN+PC 73UCUbLN36jXZwyCGap2fv dMd1QaCmFHJfYQD7qWlnNA nbh9VgEAMs Q92bgUCaq1K7MUQoqKzpmS BoAvXrxTT1vB5qBDwuijpe i1sitkjzEkktt1razf30mP 74D31wENuy ZHRoPSIzMCUiIHZhbGlnbj 3bcC0xHs4+OYUpjTK0aWX6 cK1cWWPgIeL2PLhiB458Zk RvcCIvPjxj b3ide4zonJn7VdC1FMUyqv JowWmfDGC2y2KnLc04C16d IHdpZHRoPSIyMCUiIHZhbG updy5ehL1h Ii8+MJTqgCM9jKT6hL7zEo AlAoM6GJhhB132MjJpoPWd NfzsA22fD3XcsBY+PHRyPj s1TQMmiEgz BN6zvSWuETanBg1vGFV6Mm GzAwSjMTwaQ3ZtVEIoqhwy dqfyoDW6SRVvHXRdaY86Ls 9udDogMTBw lBSGiG7ulmddw4fjdaypDf ChCZGhXTi8HYr2TSJpaCfu QpZsUWU7XaS5PYP2cVPmwA 1hbGlnbjog fH2lN0DzQZNftoqmBs21aI 7mNpZwLfK3UYxoSiv+TUlM TMTLEONMW41DQNDqHdciuK Q+PHRkIHN0 pLckIMtrAOOjoS2wTZMrS0 v3QfNvNpX0UZleY3FiULHk vrzeDx94qL8nYwJkKsP5KW rmY5VvcnC3 GJLraNAxECkgYFW2N35cm4 A8GCKoGGBrAZT4sUU2aS4u bGlnbjogbGVmdDsgdmVydG ljYWwtYWxp R755QUFerTumPrY1BlTpHe P4RSI0G5CgLmk5DHIwpOzj BK4rlQOwVWhlPp4lbPzphJ akOS4sSGTv sguaLAYpgT2mTSAmfAQaiV dbIG4cVKLwxnnly837TcQf AVT0KUAanJBjG9GmmQ9zWn AjMDAwMDAw Q3VpoYYdEQtxE740FWeoKm B0PQRyqgXuA2CoGRGvfAtf SgG8h5X5Lu37AzRZKBFsio wvdGQ+PHRk DRF9xSmhLZpnIJMkaK0mFZ NlK5z2FtZgNjL4CMmdS9Rq WRSzmgfqDi01rZ9iMzAbNe I2STdlH7Sf sxC8GSHsiSPuDExkSFR2Y2 8tf9J1IAEdXPSzPAB3xNP5 hX3coFkdoatdjNWrxAmdbu VydGljYWwt ROtfQ475AOEmxSyiMb8wlW J5N2QyAsu8VSVnySqgPZ1g lDHgJXcmYz8hwKqzyIlvMY 4wNTBpbjtw CVQqdD2vVWAopVIzfZlmNU 8gZYGdmrmek917PxKyEHL5 VAPdoHBdQ4JxwK7fBvKzBD NoSHWoG1Jc hSXvQNhaL949YLzgNoM9YJ OzsoUrC7HkJQRryNwyQdO9 g7D7Tg2DDIWuZBFrbFBsMz Q8N9KsQsov dHI+ZN39LKSsRC12kZXncM Pqs8zghTq5KuJxGVKsENN2 iLmwMFgkm4NnXGOuK49mlU Qvj3B5NBDp sUdtwHKnVdHtyAV3vW1zSR skvtwda6pfcrsoMhnbf8lu sf11sH26F01xRScqEYAoLX IzMCUiIHZh pMzbch9pkS8yHk4+PGNvbC R7dSM7uL7hSzRhZaU9CBhu Y539QeDbsKDuLvjwp1txv7 cvxFg8GoEd RSKlweAmeHbmMBN5o8CsCu 50L02mWZcyEVTqRAWjDLHz SMSsjLgnxb1geR6aOn2+PC 4zv9ygow09 aG59sWI+VAQqNXK8bGhjUD uiJHKgdD5bXJleAlP6XEIg WuXfoA69zYQtAWzzMh5myX uszRjkIO6d DCAtwddvy340RqRpw4wrGI QkgNZwYXscKBH2Y98qx8P4 IMCoRYOrXGZ5dAC0nW5ndW lnbjogbGVm dDsgdmVydGljYWwtYWxpZ2 24FGLjnXnnZdYacDWrI0vx ebEJUO8ySwfqiKO+PHRkIH N1vItsFPbm TSNxsC0oRKMtW8j8WeNtFr I3ZQesN3ArtnR2GVJtiHGk NLBnlDCTtZ0tbtqnn9amhz ogIzAwMDAw NAi8QDi3VIRlxDjrSgVoJC H3EbC0XSM2aNWaeT0aiHtm yekdzG6iYar+RklOOjwvdG Q+PHRkIHN0 kPaoPTtoMKKfvR9uLUCnO5 w3IbPrBbX0BAesP6FtayT6 KUJqnOYaPQNdaSXXpU6elt dpj4mfqxaz HzZiUUDwIMx0RAk9LQEewI xiYiQjYOX9TmB5MII1nCPi uR8fiCqzxromaL3wLrf+TV JOOjwvdGQ+ KWSkQCG4jOacLLwpMCCeoO 8wXIImY7x0GzJvHoY4WIir L8QqyoM4YACsxFUaWEYwyU ROtR6vnxpz p3eltmglLuFzDOVgMFw5DN c0PXKheNscThBpNMS8JiF9 GML6qLPcxG8zsQnkudgclC 9wOyc+UGF5 IXI0BJ14AC27F6NfNxtyjS FibGU+PHRhYmxlIHdpZHRo XPucBIXoAhAcxWrnPE1hYe 9yZGVyLWNv bGxhcHNl (more content not included)... Normal [facility] RAD - Ultrasound Reporton RAD - Ultrasound Report [id number]#1.00 CD:[address] [facility] Patient Logson 11-04-2022 Patient Logs [id number]#1.0 0CD:[address] [facility] Screenson 11-04-2022 Screens [id number]#1. 00CD:[address] [facility] Screens [id number]#1. 00CD:[address] [facility] Ambulatory Visit Summaryon 0 11-03-2022 Ambulatory Visit Summary PATSY MILLS :1945 Visit Date:11/03/2022 Ambulatory Visit Instructions Your Diagnosis Prostate cancer Hydroureteronephrosis Feeling of incomplete bladder emptying OAB (overactive bladder) BPH with urinary obstruction Asymptomatic microscopic hematuria Family history of prostate cancer History of kidney stones Glycosuria Tests Performed US Renal -- Results Pending -- Please visit your patient portal for your results or contact your primary care physician. Your Care Team Attending Physician - Vesna Cortez MD Primary Care Physician - HELEN HEATH MD This Is Your Medications List oxybutynin (oxybutynin 10 mg ER Tab) Contact prescribing physician if questions or concerns acyclovir (Zovirax 400 mg Tab) aspirin (aspirin 81 mg Chew Tab) atorvastatin (atorvastatin 20 mg Tab) bifidobacterium-lactob acillus (Probiotic + Colostrum) cholecalciferol (Vitamin D3 2000 intl units) famotidine (famotidine 20 mg Tab) insulin glargine (Lantus insulin) insulin lispro (Humalog) lenalidomide (Revlimid 5 mg oral capsule) metformin (metformin 500 mg Tab) potassium chloride (potassium chloride 20 mEq ER Tab) Procedures Performed TURP - Transurethral resection of prostate (08/27/2022), Transurethral insertion of prostatic urethral lift implant (05/05/2022), Cystoscopic removal of ureteric stent (08/20/2012), Cystoscopic ureteroneocystostomy with insertion 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 Discharge Vitals Heart Rate (Peripheral) 77 Blood Pressure 165/89 Height 180 cm Height 71 in Weight 95 kg Weight 209 lb BMI 29.32 What to do next Scheduled Follow-Up Appointments Thursday 9:45 AM EDT With: Vesna Cortez MD Where: [facility] [address] [place] [id number] \.br\ You Need to Schedule the Following Appointments\.br \ Follow Up with Vesna Cortez MD, URL, URO When: \.br\ Where:\.br\ Medications\.br\ What How Much When Instructions\.br \ Unchanged oxybutynin (oxybutynin 10 mg ER Tab) 1 Tablets By Mouth Every day\.br\ Unchanged acyclovir (Zovirax 400 mg Tab) 1 Tablets By Mouth 2 times a day Contact prescribing physician if questions or concerns \.br\ Unchanged aspirin (aspirin 81 mg Chew Tab) Chewed Every day Contact prescribing physician if questions or concerns \.br\ Unchanged atorvastatin (atorvastatin 20 mg Tab) 1 Tablets By Mouth Every day Contact prescribing physician if questions or concerns \.br\ Unchanged bifidobacterium- lactobacillus (Probiotic + Colostrum) By Mouth Every day Contact prescribing physician if questions or concerns \.br\ Unchanged cholecalciferol (Vitamin D3 2000 intl units) By Mouth Every day Contact prescribing physician if questions or concerns \.br\ Unchanged famotidine (famotidine 20 mg Tab) 1 Tablets By Mouth Once a day (at bedtime) Contact prescribing physician if questions or concerns \.br\ Unchanged insulin glargine (Lantus insulin) 25 Units Subcutaneous Once a day (at bedtime) Contact prescribing physician if questions or concerns \.br\ Unchanged insulin lispro (Humalog) 8 Units Subcutaneous Contact prescribing physician if questions or concerns \.br\ Unchanged lenalidomide (Revlimid 5 mg oral capsule) 1 Capsules By Mouth Every other day Contact prescribing physician if questions or concerns \.br\ Unchanged metformin (metformin 500 mg Tab) 1 Tablets By Mouth 2 times a day Contact prescribing physician if questions or concerns \.br\ Unchanged potassium chloride (potassium chloride 20 mEq ER Tab) 1 Tablets By Mouth Every day Contact prescribing physician if questions or concerns \.br\ Allergies\.br\ Myrbetriq (Multiple open mouth wounds)\.br\ gabapentin (Unknown, Rash)\.br\ Problems\.br\ Ongoing - Any problem that you are currently receiving treatment for.\.br\ Asymptomatic microscopic hematuria\.br\ Bilateral hydronephrosis\. br\ BPH with urinary obstruction\.br\ Diabetes\.br\ Dysuria\.br\ Elevated cholesterol\.br\ Family history of prostate cancer\.br\ Glycosuria\.br\ History of kidney stones\.br\ HTN (hypertension)\. br\ Hydroureter\.br\ Hydroureteroneph rosis\.br\ Incomplete bladder emptying\.br\ Kidney stone\.br\ Kidney stones\.br\ Microhematuria\. br\ Nocturia\.br\ OAB (overactive bladder)\.br\ Prostate cancer\.br\ Rheumatoid arthritis\.br\ UTI (urinary tract infection)\.br\ Weak urine stream\.br\ Education [employer]\.br\ Prostate Cancer\.br\ \.br\ The prostate is a walnut-sized gland that is involved in the production of semen. It is located below a man's bladder, in front of the rectum. Prostate cancer is the abnormal growth of cells in the prostate gland.\.br\ What are the causes?\.br\ The exact cause of this condition is not known.\.br\ What increases the risk?\.br\ This condition is more likely to develop in men who:\.br\ ? \.br\ Are older than age 65.\.br\ ? \.br\ Are -Central African .\.br\ ? \.br\ Are obese.\.br\ ? \.br\ Have a family history of prostate cancer.\.br\ ? \.br\ Have a family history of breast cancer.\.br\ What are the signs or symptoms?\.br\ Symptoms of this condition include:\.br\ ? \.br\ A need to urinate often.\.br\ ? \.br\ Weak or interrupted flow of urine.\.br\ ? \.br\ Trouble starting or stopping urination.\.br\ ? \.br\ Inability to urinate.\.br\ ? \.br\ Pain or burning during urination.\.br\ ? \.br\ Painful ejaculation.\.br \ ? \.br\ Blood in urine or semen.\.br\ ? \.br\ Persistent pain or discomfort in the lower back, lower abdomen, hips, or upper thighs.\.br\ ? \.br\ Trouble getting an erection.\.br\ ? \.br\ Trouble emptying the bladder all the way.\.br\ How is this diagnosed?\.br\ This condition can be diagnosed with:\.br\ ? \.br\ A digital rectal exam. For this exam, a health care provider inserts a gloved finger into the rectum to feel the prostate gland.\.br\ ? \.br\ A blood test called a prostate-specifi c antigen (PSA) test.\.br\ ? \.br\ An imaging test called transrectal ultrasonography. \.br\ ? \.br\ A procedure in which a sample of tissue is taken from the prostate and examined under a microscope (prostate biopsy).\.br\ Once the condition is diagnosed, tests will be done to determine how far the cancer has spread. This is called staging the cancer. Staging may involve imaging tests, such as:\.br\ ? \.br\ A bone scan.\.br\ ? \.br\ A CT scan.\.br\ ? \.br\ A PET scan.\.br\ ? \.br\ An MRI.\.br\ The stages of prostate cancer are as follows:\.br\ ? \.br\ Stage I. At this stage, the cancer is found in the prostate only. The cancer is not visible on imaging tests and it is usually found by accident, such as during a prostate surgery.\.br\ ? \.br\ Stage II. At this stage, the cancer is more advanced than it is in stage I, but the cancer has not spread outside the prostate.\.br\ ? \.br\ Stage III. At this stage, the cancer has spread beyond the outer layer of the prostate to nearby tissues. The cancer may be found in the seminal vesicles, which are near the bladder and the prostate.\.br\ ? \.br\ Stage IV. At this stage, the cancer has spread other parts of the body, such as the lymph nodes, bones, bladder, rectum, liver, or lungs.\.br\ How is this treated?\.br\ Treatment for this condition depends on several factors, including the stage of the cancer, your age, personal preferences, and your overall health. Talk with your health care provider about treatment options that are recommended for you. Common treatments include:\.br\ ? \.br\ Observation for early stage prostate cancer (active surveillance). This involves having exams, blood tests, and in some cases, more biopsies. For some men, this is the only treatment needed.\.br\ ? \.br\ Surgery. Types of surgeries include:\.br\ ? \.br\ Open surgery. In this surgery, a larger incision is made to remove the prostate.\.br\ ? \.br\ A laparoscopic prostatectomy. This is a surgery to remove the prostate and lymph nodes through several, small incisions. It is often referred to as a minimally invasive surgery.\.br\ ? \.br\ A robotic prostatectomy. This is a surgery to remove the prostate and lymph nodes with the help of a robotic arm that is controlled by a computer.\.br\ ? \.br\ Orchiectomy. This is a surgery to remove the testicles.\.br\ ? \.br\ Cryosurgery. This is a surgery to freeze and destroy cancer cells.\.br\ ? \.br\ Radiation treatment. Types of radiation treatment include:\.br\ ? \.br\ External beam radiation. This type aims beams of radiation from outside the body at the prostate to destroy cancerous cells.\.br\ ? \.br\ Brachytherapy. This type uses radioactive needles, seeds, wires, or tubes that are implanted into the prostate gland. Like external beam radiation, brachytherapy destroys cancerous cells. An advantage is that this type of radiation limits the damage to surrounding tissue and has fewer side effects.\.br\ ? \.br\ High-intensity, focused ultrasonography. This treatment destroys cancer cells by delivering high-energy ultrasound waves to the cancerous cells.\.br\ ? \.br\ Chemotherapy medicines. This treatment kills cancer cells or stops them from multiplying.\.br \ ? \.br\ [facility] Patient Educationon 11-04-19 Patient Education Oncology Prostate Cancer The prostate is a walnut-sized gland that is involved in the production of semen. It is located below a man's bladder, in front of the rectum. Prostate cancer is the abnormal growth of cells in the prostate gland. What are the causes? The exact cause of this condition is not known. What increases the risk? This condition is more likely to develop in men who: ? Are older than age 65. ? Are -[place]. ? Are obese. ? Have a family history of prostate cancer. ? Have a family history of breast cancer. What are the signs or symptoms? Symptoms of this condition include: ? A need to urinate often. ? Weak or interrupted flow of urine. ? Trouble starting or stopping urination. ? Inability to urinate. ? Pain or burning during urination. ? Painful ejaculation. ? Blood in urine or semen. ? Persistent pain or discomfort in the lower back, lower abdomen, hips, or upper thighs. ? Trouble getting an erection. ? Trouble emptying the bladder all the way. How is this diagnosed? This condition can be diagnosed with: ? A digital rectal exam. For this exam, a health care provider inserts a gloved finger into the rectum to feel the prostate gland. ? A blood test called a prostate-specific antigen (PSA) test. ? An imaging test called transrectal ultrasonography. ? A procedure in which a sample of tissue is taken from the prostate and examined under a microscope (prostate biopsy). Once the condition is diagnosed, tests will be done to determine how far the cancer has spread. This is called staging the cancer. Staging may involve imaging tests, such as: ? A bone scan. ? A CT scan. ? A PET scan. ? An MRI. The stages of prostate cancer are as follows: ? Stage I. At this stage, the cancer is found in the prostate only. The cancer is not visible on imaging tests and it is usually found by accident, such as during a prostate surgery. ? Stage II. At this stage, the cancer is more advanced than it is in stage I, but the cancer has not spread outside the prostate. ? Stage III. At this stage, the cancer has spread beyond the outer layer of the prostate to nearby tissues. The cancer may be found in the seminal vesicles, which are near the bladder and the prostate. ? Stage IV. At this stage, the cancer has spread other parts of the body, such as the lymph nodes, bones, bladder, rectum, liver, or lungs. How is this treated? Treatment for this condition depends on several factors, including the stage of the cancer, your age, personal preferences, and your overall health. Talk with your health care provider about treatment options that are recommended for you. Common treatments include: ? Observation for early stage prostate cancer (active surveillance). This involves having exams, blood tests, and in some cases, more biopsies. For some men, this is the only treatment needed. ? Surgery. Types of surgeries include: ? Open surgery. In this surgery, a larger incision is made to remove the prostate. ? A laparoscopic prostatectomy. This is a surgery to remove the prostate and lymph nodes through several, small incisions. It is often referred to as a minimally invasive surgery. ? A robotic prostatectomy. This is a surgery to remove the prostate and lymph nodes with the help of a robotic arm that is controlled by a computer. ? Orchiectomy. This is a surgery to remove the testicles. ? Cryosurgery. This is a surgery to freeze and destroy cancer cells. ? Radiation treatment. Types of radiation treatment include: ? External beam radiation. This type aims beams of radiation from outside the body at the prostate to destroy cancerous cells. ? Brachytherapy. This type uses radioactive needles, seeds, wires, or tubes that are implanted into the prostate gland. Like external beam radiation, brachytherapy destroys cancerous cells. An advantage is that this type of radiation limits the damage to surrounding tissue and has fewer side effects. ? High-intensity, focused ultrasonography. This treatment destroys cancer cells by delivering high-energy ultrasound waves to the cancerous cells. ? Chemotherapy medicines. This treatment kills cancer cells or stops them from multiplying. ? Hormone treatment. This treatment involves taking medicines that act on one of the male hormones (testosterone): ? By stopping your body from producing testosterone. ? By blocking testosterone from reaching cancer cells. Follow these instructions at home: ? Take [id number] and prescription medicines only as told by your health care provider. ? Maintain a healthy diet. ? Get plenty of sleep. ? Consider joining a support group for men who have prostate cancer. Meeting with a support group may help you learn to cope with the stress of having cancer. ? Keep all follow-up visits as told by your health care provider. This is important. ? If you have to go to the hospital, notify your cancer specialis (more content not included)... Normal [facility] Urology Office/Clinic Noteon 11-03-2022 Urology Office/Clinic Note Chief Complaint fu to urodynamics HPI Staff This is a 77 year old male here for F/U with renal US done 10/30/22. Previous DX: prostate cancer, hydroureteronephrosis, feeling of incomplete bladder emptying, OAB, BPH w/LUTS, asymptomatic micro hematuria, family H/O prostate cancer, H/O kidney stones and glycosuria. S/P UROS done 10/20/22, TURP done 08/27/22 and UroLift done 05/05/22. pt. states his oxybutynin in 10mg qd now Dysuria: no Incomplete bladder emptying: no Hematuria: no Frequency: no Urgency: no Nocturia: no Stream: good stream Leaking: no Post void dripping: no Wearing pads/ Depends: no Urge incontinence: no Stress incontinence: no Incontinence without Sensory Awareness: no Abdominal pain: no Flank pain: no Sexual complaints: no History of Present Illness Tests reviewed: Reviewed UDS report, renal US and labs I have reviewed the previous health record information and history for this patient from Dr. Cortez. I have reviewed and verified the staff HPI to be accurate for this encounter. There have been no associated fever, chills, flank pain, or blood in the urine. Denies any urinary infections since last encounter. Review of Systems PHQ Score Initial Depression Screen Score: 0 ROS - Provider Constitutional: denies weight loss, denies hot flashes. Eyes: denies eye problems. Gastrointestinal: denies nausea, denies vomiting. Cardiovascular: denies chest pain or angina. Integumentary: no dryness Musculoskeletal: denies musculoskeletal symptoms. ENMT: denies otolaryngeal symptoms. Respiratory: no shortness of breath. Heme/Lymph: denies easy bleeding tendency, denies easy bruising tendency. Psychiatric: no confusion, no anxiety. Genitourinary: See HPI. Physical Exam Vitals & Measurements HR: 77(Peripheral) BP: 165/89 HT: 71 in HT: 180 cm WT: 95 kg WT: 209 lb BMI: 29.32 General Appearance: alert, no distress, well nourished, well developed male. Genitourinary: Flank Pain: none. Bladder: nonpalpable. Assessment/Plan Pt here with his . Pt has multiple myeloma s/p tx, currently in remission. Sees Dr. Huddleston - no contraindications to proceed with any treatments or interventions THERESA 1. 1. Prostate cancer (C61: Malignant neoplasm of prostate) S/p TURP path shows incidental finding of prostatic adenocarcinoma, [place] 7 (3+4), GG2. Only 6-10% of [place] 4 present. 7 of 78 prostate chips involved. No adverse pathology. Thoroughly discussed new diagnosis of cT1b Favorable intermediate risk prostate cancer, grade group 2 (6-10% GS4, 9% tissue resected involved) initial PSA 1.5 (11/2021). Prostate volume 17.5g (pre-TURP). PSAD 0.08 Decipher testing 08/27/22 - high genomic risk PSA 04/11/20- 2.62 10/29/20 - 2.84 12/05/21 - 1.49 Not ideal surgical candidate (prostatectomy) due to extensive comorbidities. -MRI scheduled 11/11/22 @ [facility] for further evaluation of disease extent. -Discuss tx options further once results are finalized - worsening urinary sx with RT, may persist with RALP given poorly contractile bladder 2. Hydroureteronephrosis (N13.30: Unspecified hydronephrosis) Renal US 09/23/22 ? Mild-mod bilateral hydroureteronephrosis. No mass or stones. CT abd/pelvis w/o contrast 10/02/22 ? Mild-mod bilateral hydronephrosis and hydroureter without obstructing stone or mass. Non-obstructing calculi left kidney measuring 7 mm. 16Fr cath placed 10/09/22 by KATELYN Aguilar without difficulty - 160 ml output. Pt was started on Doxycycline 100mg for 7 days BID, although UCx neg. Post Bond Renal US 10/14/22 neg for hydro. CMP 10/14/22 BUN 25, crea 1.54, eGFR 44. (From Cr 2 prior) Saw nephrology 10/08/22. After 2 wks of no bond (pt refused after UDS), voiding q45 min Crea 1.8 & eGFR 38 drawn 10/30/22 Renal US 10/30/22 mild right pelvocaliectasis, neg for hydro. -Discussed risks of worsening renal function without CIC or bond. Pt not ready for either. Understands risks. -Will re-discuss bond vs CIC at f/u in 2 weeks if hydro persistent/worse -Cont timed voiding, DM control, dc oxybuytnin 3. Feeling of incomplete bladder emptying (R39.14: Feeling of incomplete bladder emptying) See #2/4 Small-volume, frequent voids. Low PVRs in the past. Multiple etiologies for this. I have discussed possible bladder Botox injections in the future if non-compliant, high pressure bladder. Understands the risk of UR following Botox. PVR today 108 mL, voided prior to appointment. Voiding diary shows patient is voiding 2oz every 40-45 minutes. 3oz if patient waits an hour. Reports cloudy urine, but most likely due to not emptying bladder. Discussed replacing catheter vs CIC but pt feels he would not be able to self-cath. -Mentioned referral to tertiary care due to comorbidities, underactive detrusor with poor compliance. Declined at this time -Patient wishes to have Bond replaced, but wants to wait until after MRI is complete. Pt understands the risk of waiting to have it p (more content not included)... Normal [facility] Comment on above: Result Comment: Elec tronically Signed By: Diego RICKS, Vesna Taylor\.br\Date and Time Signed: 11/03/22 16:46 EDT A1C with Estimated Average Barron cade 10-30-2022 Glucose [Mass/Vol] 166 mg/dL Normal [facility] Comment on above: Result Comment: PERF ORMED BY:[id number] [place], [place] [phone] MEDICAL DIRECTORMEAGAN HARDING M.D. Performed By: #### A [facility]C [facility] eA ####[facility] [place] [address] [facility] HbA1c (Bld) [Mass fraction] 7.4 % High 4.3-5.6 [facility] Comment on above: Result Comment: Incr eased risk for diabetes: 5.7 - 6.4 diabetes: >6.4 glycemic control for adults with diabetes: <7.0 Performed By: #### A [facility] eA ####[facility] [place] [address] [facility] Alanine aminotransferase [En zymatic activity/volume] in Serum or PlasmaOrdered By: Brook Huddleston on 10-30-2022 ALT [Catalytic activity/Vol] 16 U/L 7-52 [facility] Albumin [Mass/volume] in Ser um or Plasma by Bromocresol green (BCG) dye binding methoOrdered By: Brook Huddleston on 10-30-2022 Albumin BCG dye [Mass/Vol] 4.0 g/dL 3.5-5.7 [facility] Alkaline phosphatase [Enzyma tic activity/volume] in Serum or PlasmaOrdered By: Brook Huddleston on 10-30-2022 ALP [Catalytic activity/Vol] 102 U/L 34-104 [facility] Anisocytosis LM Ql (Bld)Orde red By: Brook Huddleston on 10-30-2022 Anisocytosis Ql (Bld) Slight Fir [facility] Aspartate aminotransferase [ Enzymatic activity/volume] in Serum or PlasmaOrdered By: Brook Huddleston on 10-30-2022 AST [Catalytic activity/Vol] 16 U/L 13-39 [facility] Basophils Auto (Bld) [#/Vol] Ordered By: Brook Huddleston on 10-30-2022 Basophils (Bld) [#/Vol] 0.0 10*3/uL 0.0-0.2 [facility] Basophils/100 WBC Auto (Bld) Ordered By: Brook Huddleston on 10-30-2022 Basophils/100 WBC (Bld) 0.3 % . [facility] Bilirubin.total [Mass/volume ] in Serum or PlasmaOrdered By: Brook Huddleston on 10-30-2022 Bilirubin [Mass/Vol] 0.4 mg/dL 0.3-1.0 [facility] Calcium [Mass/volume] in Ser um or PlasmaOrdered By: Brook Huddleston on 10-30-2022 Calcium [Mass/Vol] 8.9 mg/dL 8.6-10.3 [facility] Carbon dioxide, total [Moles /volume] in Serum or PlasmaOrdered By: Brook Huddleston on 10-30-2022 CO2 [Moles/Vol] 23.2 mmol/L 21.0-31.0 [facility] Chloride [Moles/volume] in S valeria or PlasmaOrdered By: Brook Huddleston on 10-30-2022 Chloride [Moles/Vol] 107 mmol/L 98-107 [facility] Cholesterol [Mass/volume] in Serum or PlasmaOrdered By: Helen Heath on 10-30-2022 Cholesterol [Mass/Vol] 138 mg/dL 140-200 [facility] Comment on above: Chol less than 200 m g/dl low riskChol 201-239 mg/dl borderline riskChol 240 mg/dl and greater high risk Cholesterol in LDL Calc [Mas s/Vol]Ordered By: Helen Heath on 10-30-2022 Cholesterol in LDL [Mass/Vol] 66 mg/dL 0-100 [facility] Comment on above: LDL ATP III CLASSIFI CATIONLDL less than 100 mg/dL OptimalLDL 100-129 mg/dL Near or above optimalLDL 130-159 mg/dL Borderline highLDL 160-189 mg/dL HighLDL greater than 189 mg/dL Very high Cholesterol in VLDL Calc [Ma ss/Vol]Ordered By: Helen Heath on 10-30-2022 Cholesterol in VLDL [Mass/Vol] 25 mg/dL [facility] Comprehensive Metabolic Pane mana 10-30-2022 Albumin [Mass/Vol] 4.0 g/dL Normal 3.5-5.7 [facility] Comment on above: Performed By: #### C MP, SCAN CBC ####[facility] [id number] [place] [address] [facility] Albumin/Globulin [Mass ratio] 1.7 {ratio} Normal [facility] Comment on above: Performed By: #### C MP, SCAN CBC ####[facility] [id number] [place] [address] [facility] ALP [Catalytic activity/Vol] 102 U/L Normal 34-104 [facility] Comment on above: Performed By: #### C MP, SCAN CBC ####[facility] [address] [place] [address] [facility] ALT [Catalytic activity/Vol] 16 U/L Normal 7-52 [facility] Comment on above: Performed By: #### C MP, SCAN CBC ####[facility] [id number] [place] [address] [facility] Anion gap [Moles/Vol] 11.4 mmol/L Normal 6.0-15.0 [facility] Comment on above: Performed By: #### C MP, SCAN CBC ####[facility] [address] [place] [address] [facility] AST [Catalytic activity/Vol] 16 U/L Normal 13-39 [facility] Comment on above: Performed By: #### C MP, SCAN CBC ####[facility] [address] [place] [address] [place] Bilirubin [Mass/Vol] 0.4 mg/dL Normal 0.3-1.0 [facility] Comment on above: Performed By: #### C MP, SCAN CBC ####[facility] [id number] [place] [address] [facility] Calcium [Mass/Vol] 8.9 mg/dL Normal 8.6-10.3 [facility] Comment on above: Performed By: #### C MP, SCAN CBC ####[facility] [address] [place] [address] [place] Chloride [Moles/Vol] 107 mmol/L Normal 98-107 [facility] [facility] Comment on above: Performed By: #### C MP, SCAN CBC ####[facility] [id number] [place] [address] [facility] CO2 [Moles/Vol] 23.2 mmol/L Normal 21.0-31.0 [facility] Comment on above: Performed By: #### C MP, SCAN CBC ####[facility] [id number] [place] [address] [facility] Creatinine [Mass/Vol] 1.80 mg/dL High 0.70-1.30 [facility] Comment on above: Performed By: #### C MP, SCAN CBC ####[facility] [id number] [place] [address] [place] Creatinine Clr Calc Pharmacy 39.14 [facility] Comment on above: Result Comment: PERF ORMED BY:[address] [place], [place] [phone] MEDICAL ANYA HARDING M.D. Performed By: #### C MP, SCAN CBC ####[facility] [id number] [place] [address] [facility] GFR/1.73 sq M.predicted MDRD (S/P/Bld) [Vol rate/Area] 38.289 mL/min/{1.73_m2} [facility] Comment on above: Performed By: #### C MP, SCAN CBC ####[facility] [id number] [place] [address] [place] Globulin (S) [Mass/Vol] 2.4 g/dL [facility] Comment on above: Performed By: #### C MP, SCAN CBC ####[facility] Jeo2511 [place] [address] [facility] Glucose [Mass/Vol] 145 mg/dL High 74-109 [facility] Comment on above: Result Comment: Concrete Glucose Reference Range is dependent on time and content of last meal. Glucose of more than 200 mg/dL in a nonstressed, ambulatory subject supports the diagnosis of Diabetes Mellitus. ADA recommended reference range Performed By: #### C MP, SCAN CBC ####[facility] [id number] [place] [id number] [facility] Potassium [Moles/Vol] 4.6 mmol/L Normal 3.5-5.1 [facility] Comment on above: Performed By: #### C MP, SCAN CBC ####[facility] [id number] [place] [id number] [facility] Protein [Mass/Vol] 6.4 g/dL Normal 6.4-8.9 [facility] Comment on above: Performed By: #### C MP, SCAN CBC ####[facility] Xyc[address] [place] [id number] [facility] Sodium [Moles/Vol] 137 mmol/L Normal 136-145 [facility] Comment on above: Performed By: #### C MP, SCAN CBC ####[facility] Kjq[address] [place] [id number] [facility] Urea nitrogen [Mass/Vol] 22 mg/dL Normal 7-25 [facility] Comment on above: Performed By: #### C MP, SCAN CBC ####[facility] Buy[address] [place] [id number] [facility] Creatinine [Mass/volume] in Serum or PlasmaOrdered By: Brook Huddleston on 10-30-2022 Creatinine [Mass/Vol] 1.80 mg/dL 0.70-1.30 [facility] Eosinophils Auto (Bld) [#/Vo l]Ordered By: Brook Huddleston on 10-30-2022 Eosinophils (Bld) [#/Vol] 0.3 10*3/uL 0.0-0.45 [facility] Eosinophils/100 WBC Auto (Bl d)Ordered By: Brook Huddleston on 10-30-2022 Eosinophils/100 WBC (Bld) 4.6 % . [facility] Erythrocyte distribution wid th Auto (RBC) [Ratio]Ordered By: Brook Huddleston on 10-30-2022 Erythrocyte distribution width (RBC) [Ratio] 16.3 % 12.0-14.8 [facility] Globulin Calc (S) [Mass/Vol] Ordered By: Brook Huddleston on 10-30-2022 Globulin (S) [Mass/Vol] 2.4 g/dL [facility] Glucose [Mass/volume] in Ser um or PlasmaOrdered By: Brook Huddleston on 10-30-2022 Glucose [Mass/Vol] 145 mg/dL 74-109 [facility] Comment on above: ADA recommended refe rence rangeRandom Glucose Reference Range is dependent on time and content of last meal. Glucose of more than 200 mg/dL in a nonstressed, ambulatory subject supports the diagnosis of Diabetes Mellitus. Glucose mean value [Mass/vol ume] in Blood Estimated from glycated hemoglobinOrdered By: Helen Heath on 10-30-2022 Average glucose Estimated from glycated hemoglobin (Bld) [Mass/Vol] 166 mg/dL [facility] Hematocrit Auto (Bld) [Volum e fraction]Ordered By: Brook Huddleston on 10-30-2022 Hematocrit (Bld) [Volume fraction] 26.9 % 38.8-50.0 [facility] Hemoglobin A1c percentageOrd ered By: Helen Heath on 10-30-2022 HbA1c (Bld) [Mass fraction] 7.4 % 4.3-5.6 [facility] Comment on above: Increased risk for d iabetes: 5.7 - 6.4diabetes: >6.4glycemic control for adults with diabetes: <7.0 Hemoglobin [Mass/volume] in BloodOrdered By: Brook Huddleston on 10-30-2022 Hemoglobin (Bld) [Mass/Vol] 9.3 g/dL 13.0-17.0 [facility] Laboratory - Chemistry and C hemistry - challengeOrdered By: Brook Huddleston on 10-30-2022 GFR/1.73 sq M.predicted MDRD (S/P/Bld) [Vol rate/Area] 38.289 mL/min/{1.73_m2} [facility] Leukocytes [#/volume] correc lizbet for nucleated erythrocytes in Blood by Automated counOrdered By: Brook Huddleston on 10-30-2022 WBC corrected for nucl RBC Auto (Bld) [#/Vol] 6.1 10*3/uL 4.1-10.5 [facility] Lipid Panelon 10-30-2022 Cholesterol [Mass/Vol] 138 mg/dL Low 140-200 [facility] Comment on above: Result Comment: Chol less than 200 mg/dl low risk Chol 201-239 mg/dl borderline risk Chol 240 mg/dl and greater high risk Performed By: #### L IPID ####[facility] [id number] [place] [address] [facility] Cholesterol in HDL [Mass/Vol] 47 mg/dL Normal 29-71 [facility] Comment on above: Result Comment: HDL CHOL ATP-III CLASSIFICATION Cardiovascular Risk HDL > or equal to 60 mg/dL LOW HDL < 40 mg/dL HIGH Performed By: #### L IPID ####[place] [id number] [place] [address] [facility] Cholesterol.total/Chol esterol in HDL [Mass ratio] 2.9 {ratio} Normal <5.0 [facility] Comment on above: Result Comment: PERF ORMED BY:[address] [place], [place] [phone] MEDICAL DIRECTORMEAGAN HARDING M.D. Performed By: #### L IPID ####[address] [address] [facility] LDL Cholesterol,Calculated 66 mg/dL Normal 0-100 [facility] Comment on above: Result Comment: LDL ATP III CLASSIFICATION LDL less than 100 mg/dL Optimal LDL 100-129 mg/dL Near or above optimal LDL 130-159 mg/dL Borderline high LDL 160-189 mg/dL High LDL greater than 189 mg/dL Very high Performed By: #### L IPID ####[address] [address] [facility] Triglyceride w/Reflex 126 mg/dL Normal 0-149 [facility] Comment on above: Result Comment: TRIG ATP III CLASSIFICATION TRIG less than 150 mg/dL Normal TRIG 150-199 mg/dL Borderline high TRIG 200-500 mg/dL High TRIG greater than 500 mg/dL Very high Standard traceable to the Center for Disease Conrtrol and Prevention (CDC) test method. Performed By: #### L IPID ####[facility] [id number] [place] [address] [facility] VLDL CHOLESTEROL 25 mg/dL Normal [facility] Comment on above: Performed By: #### L IPID ####[facility] [id number] [place] [address] [facility] Lymphocytes Auto (Bld) [#/Vo l]Ordered By: Brook Huddleston on 10-30-2022 Lymphocytes (Bld) [#/Vol] 1.1 10*3/uL 1.00-4.8 [facility] Lymphocytes/100 WBC Auto (Bl d)Ordered By: Brook Huddleston on 10-30-2022 Lymphocytes/100 WBC (Bld) 18.4 % . [facility] MCH Auto (RBC) [Entitic mass ]Ordered By: Brook Huddleston on 10-30-2022 MCH (RBC) [Entitic mass] 39.8 pg 27.5-35.2 [facility] MCHC Auto (RBC) [Mass/Vol]Or dered By: Brook Huddleston on 10-30-2022 MCHC (RBC) [Mass/Vol] 34.6 g/dL 32.5-35.6 [facility] MCV Auto (RBC) [Entitic vol] Ordered By: Brook Huddleston on 10-30-2022 MCV (RBC) [Entitic vol] 115.1 fL 83.5-101 [facility] Macrocytes LM Ql (Bld)Ordere d By: Brook Huddleston on 10-30-2022 Macrocytes Ql (Bld) Slight [facility] Methylmalonic Acidon 023 Methylmalonic Acid 190 Normal 0-378 [facility] Comment on above: Result Comment: This test was developed and its performance characteristics determined by [facility]. It has not been cleared or approved by the Food and Drug Administration. Performed at: [address] [id number] Hunting Guide: Aliya Curtis MD, Phone: [phone] BY:[place] [address] [address] [place], [place] [phone] MEDICAL DIRECTORMEAGAN HARDING M.D. Performed By: #### B 12 ####[facility] [address] [place] [id number] [facility]#### METH ####[facility] , Monocytes Auto (Bld) [#/Vol] Ordered By: Brook Huddleston on 10-30-2022 Monocytes (Bld) [#/Vol] 0.5 10*3/uL 0.0-0.8 [facility] Monocytes/100 WBC Auto (Bld) Ordered By: Brook Huddleston on 10-30-2022 Monocytes/100 WBC (Bld) 8.4 % . [facility] Neutrophils Auto (Bld) [#/Vo l]Ordered By: Brook Huddleston on 10-30-2022 Neutrophils (Bld) [#/Vol] 4.2 10*3/uL 1.8-7.7 [facility] Neutrophils/100 WBC Auto (Bl d)Ordered By: Brook Huddleston on 10-30-2022 Neutrophils/100 WBC (Bld) 68.3 % . [facility] No Panel InformationOrdered By: Brook Huddleston on 10-30-2022 Pharmacy Creatinine Clearance (Chem 39.14 [facility] Nucleated erythrocytes [Pres ence] in Blood by Automated countOrdered By: Brook Huddleston on 10-30-2022 Nucleated RBC Auto Ql (Bld) 0.1 /100{WBC} 0-0.5 [facility] Ovalocyte detectionOrdered B y: Brook Huddleston on 10-30-2022 Ovalocytes LM Ql (Bld) Slight [facility] Platelet adequacy [Presence] in Blood by Light microscopyOrdered By: Brook Huddleston on 10-30-2022 Platelets LM Ql (Bld) Decreased Normal [facility] Platelet mean volume Auto (B ld) [Entitic vol]Ordered By: Brook Huddleston on 10-30-2022 Platelet mean volume (Bld) [Entitic vol] 9.5 fL 6.6-10.1 [facility] Platelet morphology finding [Identifier] in BloodOrdered By: Brook Huddleston on 10-30-2022 Platelet morphology finding Nom (Bld) Normal Normal [facility] Platelets Auto (Bld) [#/Vol] Ordered By: Brook Huddleston on 10-30-2022 Platelets (Bld) [#/Vol] 125 10*3/uL 150-450 [facility] Polychromasia [Presence] in Blood by Light microscopyOrdered By: Brook Huddleston on 10-30-2022 Polychromasia LM Ql (Bld) Slight [facility] Potassium [Moles/volume] in Serum or PlasmaOrdered By: Brook Huddleston on 10-30-2022 Potassium [Moles/Vol] 4.6 mmol/L 3.5-5.1 [facility] Protein [Mass/volume] in Ser um or PlasmaOrdered By: Brook Huddleston on 10-30-2022 Protein [Mass/Vol] 6.4 g/dL 6.4-8.9 [facility] RBC Auto (Bld) [#/Vol]Ordere d By: Brook Huddleston on 10-30-2022 RBC (Bld) [#/Vol] 2.34 10*6/uL 3.90-5.60 [facility] RBC morphologyOrdered By: Am safia Huddleston on 10-30-2022 RBC morphology finding Nom (Bld) N/A [facility] Scan and CBCon 10-30-2022 Anisocytosis Ql (Bld) Slight Normal [facility] Comment on above: Performed By: #### C MP, SCAN CBC ####[facility] [id number] [address] Basophils (Bld) [#/Vol] 0.0 10*3/uL Normal 0.0-0.2 [facility] Comment on above: Performed By: #### C MP, SCAN CBC ####[facility] Ouh8481 [place] [address] [place] Basophils/100 WBC (Bld) 0.3 % Normal . [facility] Comment on above: Performed By: #### C MP, SCAN CBC ####[facility] Kcb[address] [place] [id number] [place] Eosinophils (Bld) [#/Vol] 0.3 10*3/uL Normal 0.0-0.45 [facility] Comment on above: Performed By: #### C MP, SCAN CBC ####[address] [address] [facility] Eosinophils/100 WBC (Bld) 4.6 % Normal . [facility] Comment on above: Performed By: #### C MP, SCAN CBC ####[place] [id number] [facility] Erythrocyte distribution width (RBC) [Ratio] 16.3 % High 12.0-14.8 [facility] Comment on above: Performed By: #### C MP, SCAN CBC ####[place] [id number] [facility] Hematocrit (Bld) [Volume fraction] 26.9 % Low 38.8-50.0 [facility] Comment on above: Performed By: #### C MP, SCAN CBC ####[place] [id number] [facility] Hemoglobin (Bld) [Mass/Vol] 9.3 g/dL Low 13.0-17.0 [facility] Comment on above: Performed By: #### C MP, SCAN CBC ####[address] [address] [facility] Lymphocytes (Bld) [#/Vol] 1.1 10*3/uL Normal 1.00-4.8 [facility] Comment on above: Performed By: #### C MP, SCAN CBC ####[place] [id number] [facility] Lymphocytes/100 WBC (Bld) 18.4 % Normal . [facility] Comment on above: Performed By: #### C MP, SCAN CBC ####[address] [address] [facility] Macrocytosis Slight Normal [facility] Comment on above: Performed By: #### C MP, SCAN CBC ####[place] [id number] [facility] MCH (RBC) [Entitic mass] 39.8 pg High 27.5-35.2 [facility] Comment on above: Performed By: #### C MP, SCAN CBC ####[address] [place] [address] [facility] MCV (RBC) [Entitic vol] 115.1 fL High 83.5-101 [facility] Comment on above: Performed By: #### C MP, SCAN CBC ####[place] [id number] [facility] Mean Corpuscular HGB Conc 34.6 g/dL Normal 32.5-35.6 [facility] Comment on above: Performed By: #### C MP, SCAN CBC ####[place] [id number] [facility] Monocytes (Bld) [#/Vol] 0.5 10*3/uL Normal 0.0-0.8 [facility] Comment on above: Performed By: #### C MP, SCAN CBC ####[place] [id number] [facility] Monocytes/100 WBC (Bld) 8.4 % Normal . [facility] Comment on above: Performed By: #### C MP, SCAN CBC ####[place] [id number] [facility] Neutrophils (Bld) [#/Vol] 4.2 10*3/uL Normal 1.8-7.7 [facility] Comment on above: Performed By: #### C MP, SCAN CBC ####[place] [id number] [facility] Neutrophils/100 WBC (Bld) 68.3 % Normal . [facility] Comment on above: Performed By: #### C MP, SCAN CBC ####[address] [address] [facility] NRBC% 0.1 /100{WBC} Normal 0-0.5 [facility] Comment on above: Performed By: #### C MP, SCAN CBC ####[address] [address] [facility] Ovalocytes Slight Normal [facility] Comment on above: Performed By: #### C MP, SCAN CBC ####[place] [id number] [facility] Platelet Estimate Decreased Normal Normal [facility] Comment on above: Performed By: #### C MP, SCAN CBC ####[address] [address] [facility] Platelet mean volume (Bld) [Entitic vol] 9.5 fL Normal 6.6-10.1 [facility] Comment on above: Performed By: #### C MP, SCAN CBC ####[address] [address] [facility] Platelet Morphology Normal Normal Normal [facility] Comment on above: Result Comment: PERF ORMED BY:[address] [place], [place] [phone] MEDICAL DIRECTORMEAGAN HARDING M.D. Performed By: #### C MP, SCAN CBC ####[address] [address] [facility] Platelets (Bld) [#/Vol] 125 10*3/uL Low 150-450 [facility] Comment on above: Performed By: #### C MP, SCAN CBC ####[address] [address] [facility] Polychromasia Slight Normal [facility] Comment on above: Performed By: #### C MP, SCAN CBC ####[address] [address] [facility] RBC (Bld) [#/Vol] 2.34 10*6/uL Low 3.90-5.60 [facility] Comment on above: Performed By: #### C MP, SCAN CBC ####[address] [address] [facility] Schistocytes Slight Normal [facility] Comment on above: Performed By: #### C MP, SCAN CBC ####[address] [address] [facility] Tear Drop Cells Slight Normal [facility] Comment on above: Performed By: #### C MP, SCAN CBC ####[address] [address] [facility] WBC (Bld) [#/Vol] 6.1 10*3/uL Normal 4.1-10.5 [facility] Comment on above: Performed By: #### C MP, SCAN CBC ####[facility] Rpt9030 [place] [address] [facility] Schistocytes [Presence] in B lood by Light microscopyOrdered By: Brook Huddleston on 10-30-2022 Schistocytes LM Ql (Bld) Slight [facility] Serum or plasma albumin/glob ulin mass ratioOrdered By: Brook Huddleston on 10-30-2022 Albumin/Globulin [Mass ratio] 1.7 {ratio} [facility] Serum or plasma anion gap de terminationOrdered By: Brook Huddleston on 10-30-2022 Anion gap [Moles/Vol] 11.4 mmol/L 6.0-15.0 [facility] Serum or plasma high density lipoprotein (HDL) cholesterol measurementOrdered By: Helen Heath on 10-30-2022 Cholesterol in HDL [Mass/Vol] 47 mg/dL 29-71 [facility] Comment on above: HDL CHOL ATP-III CLA SSIFICATION Cardiovascular RiskHDL > or equal to 60 mg/dL LOWHDL < 40 mg/dL HIGH Serum or plasma methylmalona te measurement (moles/volume)Ordered By: Brook Huddleston on 10-30-2022 Methylmalonate [Moles/Vol] 190 nmol/L 0-378 [facility] Comment on above: This test was develo ped and its performance characteristicsdetermined by [facility]. It has not been cleared orapproved by the Food and Drug Administration.Performed at: [address] [id number] Director: Aliya Curtis MD, Phone: [phone] Serum or plasma total choles terol/high density lipoprotein (HDL) cholesterol mass ratOrdered By: Helen Hetah on 10-30-2022 Cholesterol.total/Chol esterol in HDL [Mass ratio] 2.9 {ratio} <5.0 [facility] Sodium [Moles/volume] in Ser um or PlasmaOrdered By: Brook Huddleston on 10-30-2022 Sodium [Moles/Vol] 137 mmol/L 136-145 [facility] Teardrop cell detectionOrder ed By: Brook Huddleston on 10-30-2022 Dacrocytes LM Ql (Bld) Slight [facility] Triglyceride [Mass/volume] i n Serum or PlasmaOrdered By: Helen Heath on 10-30-2022 Triglyceride [Mass/Vol] 126 mg/dL 0-149 [facility] Comment on above: TRIG ATP III CLASSIF ICATIONTRIG less than 150 mg/dL NormalTRIG 150-199 mg/dL Borderline highTRIG 200-500 mg/dL High TRIG greater than 500 mg/dL Very highStandard traceable to the Center for Disease Conrtrol and Prevention (CDC) test method. US renal BIon 10-30-2022 US renal BI Normal [facility] Urea nitrogen [Mass/volume] in Serum or PlasmaOrdered By: Brook Huddleston on 10-30-2022 Urea nitrogen [Mass/Vol] 22 mg/dL 7-25 [facility] Vitamin B12on 10-30-2022 Cobalamin (Vitamin B12) [Mass/Vol] 341 pg/mL Normal 180-914 [facility] Comment on above: Result Comment: PERF ORMED BY:[facility] [place], [place] [phone] MEDICAL DIRECTORMEAGAN HARDING M.D. Performed By: #### B 12 ####[facility] [address] [place], [place] [id number] [facility]#### METH ####[facility] , Vitamin B12 ser/plasOrdered By: Brook Huddleston on 10-30-2022 Cobalamin (Vitamin B12) [Mass/Vol] 341 pg/mL 180-914 [facility] WBC Auto (Bld) [#/Vol]Ordere d By: Brook Huddleston on 10-30-2022 WBC (Bld) [#/Vol] 6.1 10*3/uL 4.1-10.5 [facility] Coding Summary.on 10-21-2022 Coding Summary. CD:[id number] Gh 0bWw+PGhlYWQ+LK3PIMUhE 16zwIFqrT9BK7pWYZ2QVJU ZSFBHBV9SVS7feVR5MTtoY 2VybiAv JlyodEKpBU94MAi6HRF7tO uoDAzeqT7hyKUuC8b3BgTs JL58aC36CEheVGWlAcU9Xj ZpbjsgbWFy R8xgLlIlnDCxLrf+PHRhYm xlIHdpZHRoPScxMDAlJyBz xOgbBV9lIm7uBCIbLXPpcF xhcHNlOiBj i4ufCBXeXNppBH7scCbaU6 AgbRK7VPNgn0u7Pd14wDP+ NQMnHNF8tGcjLEfop317Ko Gvr6ddZHX1 uAOuDMroFMV0D30yr2I6AR PoDVPmXKR0uFZ9hK5ozBce nljuZ8LnjAZjKtM2YIW4nS XoxG4qiXtm dklauY6tYaj+I87UCU3DYE QWFW5HKqg1A9LdHonvgXB+ PF76ENXgGS08fEWwvSFjm3 arpDw7GhTu WFYoQNU4zJzrGSzaa9JiRL SsB12vqOLfd3U8QTEeaWgm zWNkNlUloQX8uD9nEVrssu hyn8mgzyww Wniry1rizg39iJ37N01eSJ dsZELcRUT9VWMnLSCnwLlq ia4bnF0tCl2+QBjtr2rve1 zyuHw1JzVb LJLuflKxmKsqBLK1d6CfHa 30H4UteAgib4SxHys2di98 jVEum1B8hXV5KEnwSXLefW 1tJGrhSmW8 KDFhNvUovX74cFUrLGfhVs 5hjSnqgMdcXK6zUVQuuzbh LUMhuF5rLRMwkZSiqPmaYC 4wNTBpbjtm r378HoVgCLT8XLOjlMFrF9 RtvB0iLlNwWLFtVUZlA9Nu zKQkNFfyO695GPdwXkE4IE BgxsSfA7Rt BDTmnVrnWrS2n9L7Vs7Kb7 HuhfmtJQO2WLlfDVZdMzX9 GlSeTzP9Q0KuJic9MGWblM rcIF2pS0Ba FDLtikqouklmpMR9YNFbON OoeI46nPYtIEckRq9ix5P4 u080ISQaRTUnlR18Ho2pcA ogMTBwdCBU eO7vhfyma0dbtgfwElIvZA XyLMl6KCj8MUZmlCevGsPz QJS6XeW7YAW3uCLgaE3ajT fgojafeQ9m Oyc+B15joE2wIOD6DQE4fa gjZMGunsIxRW52RF68Z0Ri PjwvdGFibGU+PGRpdiBzdH kiCH7fToRn y4wdh7EtMZqwK3OsPYPgLL wcNnr1JQBdBPH9nKM4yI7e ZSHaKOwkr2A1wAK6A2Ukxh Dqiq0fl3mn OJZgDZniW84ezPAgg4D7NT UsuUH4PHYbcUplZnRssX70 Oyc+RXEstVsbl6XjUooqn8 iiw2ekhKx9 FrCmOTGmxzHjyDlmMRB1r1 IbXk26F56oIQnpDRXdONVa WPYxCELbtZrdjk4vhW1hFh 8+PGNvbCB3 nSR9jB1xPYExXjD8PZjjU5 33GxZidWNvRdsnc1dqi8oz sRz0KdCbCJWhqhHycEvkDK L9n2HvLs26 G58zWCzwEGAzNWSgWHBwYO LalGixus6qoT5lLl5+PC9j p9qnny28gV19sVC+PHRkIH I5gKohOIzg YUSblR9aVMrzFcO3BADlBx ImiJ13gGIaNDojDl8feGot qHrwCW7jTOUyijgpx954Fa Yvw9uoKXDl dJBuEIqbAIG8L34fo7F6NT EjPBErJUK9pBX5cX8bhZwp bjogbGVmdDsgdmVydGljYW dsLHnrI497 IHRvcDsnPlBhdGllbnQgTm EkHTt5S2UrAub0MXWigZtv RO1nqNFxPRgtKd4slMpvaV dyEK5dBFDg biloe961UhCyo9ofUGMzmW ZbJQvvWHZ7L46fi7K3FQJi UGKsMGS7kRF6pR0rcTvfvr ogbGVmdDsg yxEqtEjgWXxiIYyuZ902JP RvcDsnPkJpcnRoIERhdGU6 DQ59QI86lMNnl3L2bMR4G0 BhZGRpbmct fvxrnOZ9MPHvTVKteM19Sn 8rnDzbAq9tLRYlQRM4KUYw zBToS4VqaJ8lBtWwXMXzCU AgS7JxaIOt QKibU739GLopUbP5HNZhpw BiG0YeFCEhvMsoQqJ4c2F9 Qp7YP0C8RH64JK00qHPon1 T8kYY4C8Aj MPAcixnifxgwwBC9PPNmZF DglC72Sk2jwBhdQh0jCABw GNW0LFIycBJiC0ClhJ0cDr AjMDAwMDAw U5AbzNWeHSbsI286ZEduIq R8RBBudgSpP0RjDIPutHyq YgQ7u6I6Ak0CMWo2FI65YG 21cUXfw4X6 oYG7O7QcJREpivtpvylyhO H5CFEaBJBuqP05Ho8dlVqo Vh4bTFYjPLD5HVIbrCSyX1 BprS0jZhZo NRUcKJVdZ8CbkJKcIUfhH1 49IAsrOjY2QDTffwTwQ0Vo VHOfjOofXlX5r2Y9Al2CNU IgQH82PVL7 tKB7PL61HD54C8WuRtoyyJ FibGU+PHRhYmxlIHdpZHRo THuyRCZqUdBzdQvcGK0yWh 9yZGVyLWNv oSrylNByRlKxe1fgZAPgSN jcPO0htWbvJ3SidDR8ASHi k7u9Gh87T65qL6OluJR+PG EvhKQ3aEM9 cG7wGdPnAcB9QWtmH816Iu DpuJWtNoyqb6rjr6nyuGs9 KjH1RRJnlyHetObxJUZ8h7 JwTm64A72a IHdpZHRoPSIxNSUiIHZhbG ehsk5yeL3pUb9+PGNvbCB3 eQX7dR4hNnVoPxN2AGqxR0 49InRvcCIv Vkwfu7gqr8fobSp1YzJjLS FeaqIuzZavAJX8a0OvKk04 M7LijMfpp5UcOcy4de82cQ Ttu1R6uEA0 A1KbYKJccnaerHVwgNzsCZ 5gNHUjpvvaPRPviL1hAMCk D1x1KdJfIyS7KTbhQ0Ksvo Z9HYCanEBz IAwqUVE7D96ce7Z0EBLcDQ RkWVZ5oFE2wR9rvDimybhv bGVmdDsgdmVydGljYWwtYW xmA645TEAx fRtdMDMxvA6sAUFzpNQovC hfEP8cIXOookswXr0AYAoM QhagDQ0MNNcQZTm1Z2HoUf f5NCRdyVsy NC2ikDAiWIplMq1ksSzzhX jsLW1hZBHhwnxsLKBdfY8h XLWfsCJukJreIK8nLXXyfr bdv359DpFb RJG0RJRfvQLjY8HybJ9nRt BzSYIyXYEzK0YbcUApHJpf W956DRkfGgE5ASTjytKfM6 FsLWFsaWdu TzF2c7I6Vf5zIh4mSU0cVO A8MY38HY22cYZdn2D6aEM4 D7OoLQWmjkcbmttnqAN4LA DwWDTygA60 jNVwRSlzQf9jr1K6i565JH HjPNUvsH85Fl0dpTseIVLu yDVOvO5ohtllj5qqfbfdGn AwMDAwMDt0 KGk6LPTzwIpbUvFbHBA3Ox M9ZZD0rFDrtJ1cbUatomzl hH3vQhw+FajbRLJrtzE3Q4 HzNoz3PABh iItiCT5xaMEaHZiwQr9ktX arpRxcKK7pBTMxfmwuZZXr bR7mGHIohRLdmMjfWT3dOB Kipnjut945 VdIsFLK4HCEkbNHwR6XvcF 3hQfOwNSMhSZWcA9XhhKGs UWtdC334DKwnQrH7QYIbcr JrT4CgSCNy pUmgCeX0n7P2Jm3RSVvpEY 45VH25fLTou9W7eSB4P6Hb KDXzwfescwjdiOI1QPDuXE EjxO36uQVv TWvwGv3pp7L9y349HZHxAM ScgG85Pj6lnFhuBSNtaSMZ oV2szufsa4ktabrwJwBzRF KyZVl1VGc1 IYWrzOweVwWqGAY7EjD2FG W8yBBabS9ruJlbsdrinY4u Oyc+F6C0bBK9eCAdfFmdhN Q+NV64cr35 S0MkXzwaBxo3DFRrFIY6qA J1oT9qNYYkCTymg8L2kOC5 P5QbpfPlsx5oo0ztVMByOM agQ16nzWAq j5J4FTWdeJA2DTDkbVqlPz RceP90Yrs+XCSdjSemv2Cr Mdchs4wdv9vrwNu2TbRiKE IgdmFsaWdu UBH5x7QkIn75I78qWDioDK JxKGBjFHIjMNPtaLicef3j lQ7vIi6+IIPxjAN8qVG2zF 4gLdJmEpW4 OMmcX640IcXnoTYbQysle4 luj0jvgRu1KzFsDJQvreUn lFvoPAY1v0YtNm92U7AkoM yfe1TlBvb3 ws03aEIoz7D2xRD3P2MhGA EefwnyoUPwmQytZU1rWFKg ylemBSKtfU8nBXOpP3v2Ib JqBmC7XZvp I8BvksE3KIBswDIbVKXjiD BDyZ6rgooof6yephuqFgDp VMZaAXr9MGv5WFBitVgzHh IeLAA4LiZ8 WKD9dLMwzO2dsCmlztpqsV 9wOyc+RYn3q4xkdUAvED6j qBD2NX61HV23aZVqo3H9gV F5M5LuDMAv mnbszzebfAM6HDKgEBSirL 33Bf5cyGwyMx5gEBCxUPZ9 NZCarYGaO8BpaE7hYqAgZI LlVPHvR6Qx fEBzGPhwK259INnpZpJ1QI TyugAbK8JiHKKhrEkdPeT9 y3P5Lx3IZY97WN50OG84pA Cno5R5sBE4 K5BlGVSziujknztfyXC1YJ RsRXLdlN76Fw5tvUyiGt3i RLQiSOP2WTRavRJaF4AibH 9yOiAjMDAw NNZpZ5UjzXBuNXlcA610SX ppYtX5OHSgxnFgW7LkHGCx wNyfAqX2l6P2Qv9LHr77FB 08PQ24tFMw y2U6nVV3H7ZmFCJrdafkao wpiJN8NRUnMUFtvJ30Wo2v uHztJc9wPWVaKID5CIVoqR BiG2DbsO9m UgAcYAUbODRzT5HfkPQrKH goO836IYfvPwH1BALfoaWd H6XnHWGrvKfiGlR8k5I2Lc 5TPUbtean2 C6YpQwzmtUX+NR30QWWuMG 80vTUbtOAdh8ketPl6XhFz AVGxPRP8vPrlWHmxf5CpYE AnL97laUAp c2U6 (more content not included)... Normal [facility] Progress Note-Physicianon Progress Note-Physician Patient: PATSY MILLS Age: 77 years Sex: Male : 1945 Associated Diagnoses: None Author: Diego RICSK, Vesna Taylor Health Status Allergies: Allergic Reactions (Selected) Severe Myrbetriq- Multiple open mouth wounds. Severity Not Documented Gabapentin- Rash and unknown., Allergies (2) Active Reaction Myrbetriq Multiple open mouth wounds gabapentin Unknown Current medications: (Selected) Prescriptions Prescribed oxybutynin 5 mg ER Tab: 5 mg = 1 tab(s), Oral, BID, # 180 tab(s), Refills(s) 3, Pharmacy: [facility] ), 180, cm, 10/16/22 10:34:00 EST, Height/Length Dosing, 95.5, kg, 10/16/22 10:34:00 EST, Weight Dosing Documented Medications Documented Humalo unit(s), SubCutaneous, Refills(s) 0 Lantus insulin: 25 unit(s), SubCutaneous, Once a day (at bedtime), Refills(s) 0 Probiotic + Colostrum: Oral, Daily, Refill(s) 0 Revlimid 5 mg oral capsule: 5 mg = 1 cap(s), Oral, Every other day, # 30 cap(s), Refills(s) 0 Vitamin D3 2000 intl units: Oral, Daily, Refills(s) 0 Zovirax 400 mg Tab: 400 mg = 1 tab(s), Oral, BID, Refills(s) 0 aspirin 81 mg Chew Tab: mg tab(s), Chewed, Daily, Refills(s) 0 atorvastatin 20 mg Tab: 20 mg = 1 tab(s), Oral, Daily, Refills(s) 0 famotidine 20 mg Tab: 20 mg = 1 tab(s), Oral, Once a day (at bedtime), Refills(s) 0 metformin 500 mg Tab: 500 mg = 1 tab(s), Oral, BID, Refills(s) 0 potassium chloride 20 mEq ER Tab: 20 mEq = 1 tab(s), Oral, Daily, Refills(s) 0 Impression and Plan 77 yo M with history of uncontrolled DM2, multiple myeloma now in remission and longstanding LUTS s/p urolift and TURP, with mildly improved yet persistent overactive bladder and feeling of incomplete emptying. Small volume bladder with frequency and urgency. Low PVRs however recent renal US noted mild BL hydroureteronephrosis, confirmed on CT and thickened contracted bladder. [place] and renal function improved with bond catheter decompression, only 160 ml upon bond insertion. -UDS today shows very early sensation, small volume capacity of 77 ml, reported spasms with leakage throughout. However, overall low bladder pressures with mild EMG activity throughout. Uroflow upon standing was not captured. Pt denies having control of emptying when he stood. Voided half volume sitting, remainder emptied standing without control. Pt declined bond reinsertion. Educated on risk of BL hydro and need for frequent q1h voiding given small capacity. Discussed Botox to help bladder relax however risk of retention and need for CIC/bond temporarily. Discussed sacral neuromodulator for non-obstructive retention and overactive bladder. Information provided. Spoke to Dr. Huddleston, will not interfere with his MM, now in remission. Given recent prostate malignancy on TURP and high risk Decipher score, will obtain MRI prostate now to prevent potential scatter/interference from SNM if we proceed with this. Bladder diary sheets provided Follow up in 2 wks with renal US and discuss next steps . Normal [facility] Comment on above: Result Comment: Elec tronically Signed By: Diego RICKS, Vesna Taylor\.br\Date and Time Signed: 10/21/22 10:22 EST Consent for Procedure/Surger yon 10-20-2022 Consent for Procedure/Surgery [id number]. 00CD:127 [facility] Consent for Treatmenton 0 Consent for Treatment [id number] 0CD:127 [facility] IntraOperative Documentson 0 10-20-2022 IntraOperative Documents [id number]#1. 00CD:[address] [facility] Lab Reportson 10-17-2022 Lab Reports [id number]#1.0 0CD:[address] [facility] Lab Reports [id number]#1.0 0CD:[address] [facility] RAD - Ultrasound Reporton RAD - Ultrasound Report [id number]#1.0 0CD:[address] [facility] Ambulatory Visit Summaryon 0 10-16-2022 Ambulatory Visit Summary PATSY MILLS :1945 Visit Date:10/16/2022 Ambulatory Visit Instructions Your Diagnosis Prostate cancer Hydroureteronephrosis Incomplete bladder emptying OAB (overactive bladder) BPH with urinary obstruction Asymptomatic microscopic hematuria Family history of prostate cancer History of kidney stones Glycosuria Your Care Team Attending Physician - Diego RICKS, Vesna Taylor Primary Care Physician - HELEN HEATH MD This Is Your Medications List doxycycline (doxycycline hyclate 100 mg Cap) oxybutynin (oxybutynin 5 mg ER Tab) trospium (trospium 20 mg oral tablet) Contact prescribing physician if questions or concerns acyclovir (Zovirax 400 mg Tab) aspirin (aspirin 81 mg Chew Tab) atorvastatin (atorvastatin 20 mg Tab) bifidobacterium-lactob acillus (Probiotic + Colostrum) cholecalciferol (Vitamin D3 2000 intl units) famotidine (famotidine 20 mg Tab) insulin glargine (Lantus insulin) insulin lispro (Humalog) lenalidomide (Revlimid 5 mg oral capsule) metformin (metformin 500 mg Tab) potassium chloride (potassium chloride 20 mEq ER Tab) Procedures Performed TURP - Transurethral resection of prostate (08/27/2022), Transurethral insertion of prostatic urethral lift implant (05/05/2022), Cystoscopic removal of ureteric stent (08/20/2012), Cystoscopic ureteroneocystostomy with insertion 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 Discharge Vitals Heart Rate (Peripheral) 82 Respiratory Rate 16 Blood Pressure 141/70 Height 180 cm Height 71 in Weight 95.5 kg Weight 210.1 lb BMI 29.48 What to do next Scheduled Follow-Up Appointments Thursday 10:45 AM EDT With: Vesna Cortez MD Where: [facility] [place] Normal [facility] Patient Educationon 10-17-19 Patient Education Urology Hydronephrosis Hydronephrosis is the swelling of one or both kidneys due to a blockage that stops urine from flowing out of the body. Kidneys filter waste from the blood and produce urine. This condition can lead to kidney failure and may become life threatening if not treated promptly. What are the causes? Common causes of this condition include: ? Problems that occur when a baby is developing in the womb (congenital defect). These can include problems: ? In the kidneys. ? In the tubes that drain urine from the kidneys into the bladder (ureters). ? Kidney stones. ? Bladder infection. ? An enlarged prostate gland. ? Scar tissue from a previous surgery or injury. ? A blood clot. ? A tumor or cyst in the abdomen or pelvis. ? Cancer of the prostate, bladder, uterus, ovary, or colon. What are the signs or symptoms? Symptoms of this condition include: ? Pain or discomfort in your side (flank). ? Pain and swelling in your abdomen. ? Nausea and vomiting. ? Fever. ? Pain when passing urine. ? Feelings of urgency when you need to urinate. ? Urinating more often than normal. In some cases, you may not have any symptoms. How is this diagnosed? This condition may be diagnosed based on: ? Your symptoms and medical history. ? A physical exam. ? Blood and urine tests. ? Imaging tests, such as an ultrasound, CT scan, or MRI. ? A procedure in which a scope is inserted into the urethra and used to view parts of the urinary tract and bladder (cystoscopy). How is this treated? Treatment for this condition depends on where the blockage is, how long it has been there, and what caused it. The goal of treatment is to remove the blockage. Treatment may include: ? Antibiotic medicines to treat or prevent infection. ? A procedure to place a small, thin tube (stent) into a blocked ureter. The stent will keep the ureter open so that urine can drain through it. ? A nonsurgical procedure that crushes kidney stones with shock waves (extracorporeal shock wave lithotripsy). ? If kidney failure occurs, treatment may include dialysis or a kidney transplant. Follow these instructions at home: ? Take imby-tcd-dxwcsru and prescription medicines only as told by your health care provider. ? Rest and return to your normal activities as told by your health care provider. Ask your health care provider what activities are safe for you. ? Drink enough fluid to keep your urine pale yellow. ? If you were prescribed an antibiotic medicine, take it exactly as told by your health care provider. Do not stop taking the antibiotic even if you start to feel better. ? Keep all follow-up visits as told by your health care provider. This is important. Contact a health care provider if: ? You continue to have symptoms after treatment. ? You develop new symptoms. ? Your urine becomes cloudy or bloody. ? You have a fever. Get help right away if: ? You have severe flank or abdominal pain. ? You cannot drink fluids without vomiting. Summary ? Hydronephrosis is the swelling of one or both kidneys due to a blockage that stops urine from flowing out of the body. ? Hydronephrosis can lead to kidney failure and may become life threatening if not treated promptly. ? The goal of treatment is to treat the cause of the blockage. It may include insertion of stent into a blocked ureter, a procedure to treat kidney stones, and antibiotic medicines. ? Follow your health care provider's instructions for taking care of yourself at home, including instructions about drinking fluids, taking medicines, and limiting activities. This information is not intended to replace advice given to you by your health care provider. Make sure you discuss any questions you have with your health care provider. Document Released: 05/30/2008 Document Revised: 08/14/2018 Document Reviewed: 08/14/2018 [employer] Patient Education ? 2019 [employer] Shannan Rhodes [facility] Urology Office/Clinic Noteon 10-16-2022 Urology Office/Clinic Note Chief Complaint 1 week F/U HPI Staff This is a 77 year old male here for 1 week F/U with ANA and BMP done 10/14/22. Previous DX: hydroureteronephrosis, dysuria, incomplete bladder emptying, BPH w/LUTS, prostate cancer and kidney stones. S/P TURP done 08/27/22 and UroLift done 05/05/22. Pt. was in the office last week to have Bond placed due to hydroureteronephrosis. Pt. states urine is clear. Pt. was put on Doxycyline 100mg for 7 days BID History of Present Illness Tests reviewed: reviewed CMP & ANA. I have reviewed the previous health record information and history for this patient from Dr. Cortez. I have reviewed and verified the staff HPI to be accurate for this encounter. There have been no associated fever, chills, flank pain, or blood in the urine. Denies any urinary infections since last encounter. Review of Systems PHQ Score Initial Depression Screen Score: 0 ROS - Provider Constitutional: denies weight loss, denies hot flashes. Eyes: denies eye problems. Gastrointestinal: denies nausea, denies vomiting. Cardiovascular: denies chest pain or angina. Integumentary: no dryness Musculoskeletal: denies musculoskeletal symptoms. ENMT: denies otolaryngeal symptoms. Respiratory: no shortness of breath. Heme/Lymph: denies easy bleeding tendency, denies easy bruising tendency. Psychiatric: no confusion, no anxiety. Genitourinary: See HPI. Physical Exam Vitals & Measurements HR: 82(Peripheral) RR: 16 BP: 141/70 HT: 71 in HT: 180 cm WT: 95.5 kg WT: 210.1 lb BMI: 29.48 General Appearance: alert, no distress, well nourished, well developed male. Genitourinary: Flank Pain: none. Bladder: nonpalpable. Assessment/Plan Pt here with his . Pt has multiple myeloma s/p tx, currently stable. Sees Dr. Huddleston. 1. Prostate cancer (C61: Malignant neoplasm of prostate) PO TURP path shows incidental finding of prostatic adenocarcinoma, [place] 7 (3+4), GG2. Only 6-10% of [place] 4 present. 7 of 78 prostate chips involved. No adverse pathology. Thoroughly discussed new diagnosis of cT1b Favorable intermediate risk prostate cancer, grade group 2 (6-10% GS4, 9% tissue resected involved) initial PSA 1.5 (11/2021). Prostate volume 17.5g (pre-TURP). PSAD 0.08 PSA: 04/11/20 - 2.62 03/15/21 - 2.84 12/05/21 - 1.49 -MRI prostate in 6 months, as previously discussed, pt wanted to optimize other health and current quality of life prior to further evaluation. Follow-up to review and discuss confirmation MRI fusion prostate biopsy in 6 to 12 months. 2. Hydroureteronephrosis (N13.30: Unspecified hydronephrosis) Renal US 09/23/22 ? Mild-mod bilateral hydroureteronephrosis. No mass or stones. CT abd/pelvis w/o contrast 10/02/22 ? Mild-mod bilateral hydronephrosis and hydroureter without obstructing stone or mass. Non-obstructing calculi left kidney measuring 7 mm. 16Fr cath placed 10/09/22 by KATELYN Aguilar without difficulty - 160 ml output. Pt. was started on Doxycycline 100mg for 7 days BID, although UCx neg. Post bond Renal US 10/14/22 neg for hydro. CMP 10/14/22 BUN 25, crea 1.54, eGFR 44. (From Cr 2 prior) Saw nephrology 10/08/22. Given hydronephrosis and renal function improved after Bond placement, discussed potential etiologies for obstructive uropathy including noncompliant bladder, detrusor underactivity and bladder outlet obstruction, although his PVRs have been low. - Given complex picture with uncontrolled diabetes and patent bladder neck, recommend proceeding with urodynamics for further evaluation. -Continue Bond catheter for now. Overall patient is tolerating this well 3. Feeling of incomplete bladder emptying (R39.14: Feeling of incomplete bladder emptying) See #2/4 Small-volume, frequent voids. Low PVRs in the past. Multiple etiologies for this. -Will schedule UDS -Discussed possible bladder Botox injections in the future if non-compliant, high pressure bladder 4. OAB (overactive bladder) (N32.81: Overactive bladder) Baseline very severe lower urinary tract symptoms. No improvement with course of anti-inflammatories. Pt d/c Myrbetriq due to side effects (mouth sores, fatigue). Reports mouth sores went away after stopping Myrbetriq, while still taking Fluconazole. Started on Trospium 20mg at last visit. Shares he went back to taking Oxybutynin 5mg BID which has been helping. -Dm control -Oxybutynin refill sent today to [facility] -UDS as above Ordered: Urology Procedure Order 5. BPH with urinary obstruction (N40.1: Benign prostatic hyperplasia with lower urinary tract symptoms) S/P UroLift on 05/05/22 for reported volume 45 g from DLS. Recent imaging - prostate volume 17.5g. S/p TURP done 08/27/22 -moderate bilobar hypertrophy with small but patent anterior channel, elevated bladder neck. Path shows prostate cancer, #1 Not on tamsulosin Prior IPSS 14 from 29. Did not fill out today due to Bond. Has had low PVRs in the last 30-100ml -Further eval with UDS. IF concern fo (more content not included)... Normal [facility] Comment on above: Result Comment: Elec tronically Signed By: Diego RICKS, Vesna Taylor\.br\Date and Time Signed: 10/16/22 19:28 EST\.br\Electronically Co-Signed By: Aleah Starr\.br\Date and Time Co-Signed: 10/16/22 11:32 EST\.br\Electronically Co-Signed By: Aleah Starr\.br\Date and Time Co-Signed: 10/16/22 11:36 EST Albumin [Mass/volume] in Ser um or PlasmaOrdered By: Brook Huddleston on 10-14-2022 Albumin [Mass/Vol] 3.7 g/dL 3.2-5.5 [facility] Alkaline phosphatase [Enzyma tic activity/volume] in Serum or PlasmaOrdered By: Brook Huddleston on 10-14-2022 ALP [Catalytic activity/Vol] 102 U/L 32-92 [facility] Anisocytosis LM Ql (Bld)Orde red By: Brook Huddleston on 10-14-2022 Anisocytosis Ql (Bld) Slight [facility] Aspartate aminotransferase [ Enzymatic activity/volume] in Serum or PlasmaOrdered By: Brook Huddleston on 10-14-2022 AST [Catalytic activity/Vol] 22 U/L 10-42 [facility] Basophils Auto (Bld) [#/Vol] Ordered By: Brook Huddleston on 10-14-2022 Basophils (Bld) [#/Vol] 0.0 10*3/uL 0.0-0.2 [facility] Basophils/100 WBC Auto (Bld) Ordered By: Brook Huddleston on 10-14-2022 Basophils/100 WBC (Bld) 0.4 % . [facility] Bilirubin.total [Mass/volume ] in Serum or PlasmaOrdered By: Brook Huddleston on 10-14-2022 Bilirubin [Mass/Vol] 0.4 mg/dL 0.3-1.2 [facility] Calcium [Mass/volume] in Ser um or PlasmaOrdered By: Brook Huddleston on 10-14-2022 Calcium [Mass/Vol] 9.1 mg/dL 8.2-10.2 [facility] Carbon dioxide, total [Moles /volume] in Serum or PlasmaOrdered By: Brook Huddleston on 10-14-2022 CO2 [Moles/Vol] 23.4 mmol/L 22.0-30.0 [facility] Chloride [Moles/volume] in S valeria or PlasmaOrdered By: Brook Huddleston on 10-14-2022 Chloride [Moles/Vol] 105 mmol/L 95-114 [facility] Comprehensive Metabolic Pane mana 10-14-2022 Albumin [Mass/Vol] 3.7 g/dL Normal 3.2-5.5 [facility] Comment on above: Performed By: #### C MP ####[address] Albumin/Globulin [Mass ratio] 1.5 {ratio} Normal [facility] Comment on above: Performed By: #### C MP ####[place] [id number] [facility] ALP [Catalytic activity/Vol] 102 U/L High 32-92 [facility] Comment on above: Performed By: #### C MP ####[place] [id number] [place] [id number] [facility] ALT [Catalytic activity/Vol] 20 U/L Normal 10-60 [facility] Comment on above: Performed By: #### C MP ####[place] [id number] [facility] Anion gap [Moles/Vol] 11.3 mmol/L Normal 6.0-15.0 [facility] Comment on above: Performed By: #### C MP ####[place] [id number] [facility] AST [Catalytic activity/Vol] 22 U/L Normal 10-42 [facility] Comment on above: Performed By: #### C MP ####[place] [id number] [facility] Bilirubin [Mass/Vol] 0.4 mg/dL Normal 0.3-1.2 [facility] Comment on above: Performed By: #### C MP ####[place] [id number] [facility] Calcium [Mass/Vol] 9.1 mg/dL Normal 8.2-10.2 [facility] Comment on above: Performed By: #### C MP ####[place] [id number] [facility] Chloride [Moles/Vol] 105 mmol/L Normal 95-114 [facility] Comment on above: Performed By: #### C MP ####[place] [id number] [facility] CO2 [Moles/Vol] 23.4 mmol/L Normal 22.0-30.0 [facility] Comment on above: Performed By: #### C MP ####[place] [id number] [facility] Creatinine [Mass/Vol] 1.54 mg/dL High 0.64-1.27 [facility] Comment on above: Performed By: #### C MP ####[place] [id number] [facility] Creatinine Clr Calc Pharmacy 45.75 Normal [facility] Comment on above: Result Comment: PERF ORMED BY:[address] [place], [place] [id number] MEDICAL ANYA HARDING M.D. Performed By: #### C MP ####[place] [address] [place] [address] [facility] Estimated GFR ( Asif 53 [facility] Comment on above: Result Comment: GFR estimated reference range: According to KDOQI guidelines, <60 ml/min/1.73m2 is sufficient to diagnose a patient with chronic kidney disease. Performed By: #### C MP ####[address] [address] [facility] Estimated GFR (Non- Am 44 [facility] Comment on above: Performed By: #### C MP ####[address] [address] [facility] Globulin (S) [Mass/Vol] 2.5 g/dL [facility] Comment on above: Performed By: #### C MP ####[address] [address] [facility] Glucose [Mass/Vol] 138 mg/dL High 70-100 [facility] Comment on above: Result Comment: Concrete Glucose Reference Range is dependent on time and content of last meal. Glucose of more than 200 mg/dL in a nonstressed, ambulatory subject supports the diagnosis of Diabetes Mellitus. ADA recommended reference range Performed By: #### C MP ####[address] [address] [facility] Potassium [Moles/Vol] 4.7 mmol/L Normal 3.5-5.1 [facility] Comment on above: Performed By: #### C MP ####[address] [address] [facility] Protein [Mass/Vol] 6.2 g/dL Normal 6.1-7.9 [facility] Comment on above: Performed By: #### C MP ####[address] [address] [facility] Sodium [Moles/Vol] 135 mmol/L Low 136-146 [facility] Comment on above: Performed By: #### C MP ####[address] [address] [facility] Urea nitrogen [Mass/Vol] 25 mg/dL High 9-23 [facility] Comment on above: Performed By: #### C ####[facility] [id number] Creatinine and Glomerular fi ltration rate.predicted panel (S/P/Bld)Ordered By: Brook Huddleston on 10-14-2022 Creatinine [Mass/Vol] 1.54 mg/dL 0.64-1.27 [facility] Eosinophils Auto (Bld) [#/Vo l]Ordered By: Brook Huddleston on 10-14-2022 Eosinophils (Bld) [#/Vol] 0.2 10*3/uL 0.0-0.45 [facility] Eosinophils/100 WBC Auto (Bl d)Ordered By: Brook Huddleston on 10-14-2022 Eosinophils/100 WBC (Bld) 3.2 % . [facility] Erythrocyte distribution wid th Auto (RBC) [Ratio]Ordered By: Brook Huddleston on 10-14-2022 Erythrocyte distribution width (RBC) [Ratio] 17.1 % 12.0-14.8 [facility] Estimated glomerular filtrat ion rate (GFR) non- AmericanOrdered By: Brook Huddleston on 10-14-2022 GFR/1.73 sq M.predicted among non-blacks MDRD (S/P/Bld) [Vol rate/Area] 44 mL/Min [facility] Globulin Calc (S) [Mass/Vol] Ordered By: Brook Huddleston on 10-14-2022 Globulin (S) [Mass/Vol] 2.5 g/dL [facility] Glucose [Mass/volume] in Ser um or PlasmaOrdered By: Brook Huddleston on 10-14-2022 Glucose [Mass/Vol] 138 mg/dL 70-100 [facility] Comment on above: ADA recommended refe rence rangeRandom Glucose Reference Range is dependent on time and content of last meal. Glucose of more than 200 mg/dL in a nonstressed, ambulatory subject supports the diagnosis of Diabetes Mellitus. Hematocrit Auto (Bld) [Volum e fraction]Ordered By: Brook Huddleston on 10-14-2022 Hematocrit (Bld) [Volume fraction] 26.7 % 38.8-50.0 [facility] Hemoglobin [Mass/volume] in BloodOrdered By: Brook Huddleston on 10-14-2022 Hemoglobin (Bld) [Mass/Vol] 9.0 g/dL 13.0-17.0 [facility] Leukocytes [#/volume] correc lizbet for nucleated erythrocytes in Blood by Automated counOrdered By: Brook Huddleston on 10-14-2022 WBC corrected for nucl RBC Auto (Bld) [#/Vol] 7.1 10*3/uL 4.1-10.5 [facility] Lymphocytes Auto (Bld) [#/Vo l]Ordered By: Brook Huddleston on 10-14-2022 Lymphocytes (Bld) [#/Vol] 1.0 10*3/uL 1.00-4.8 [facility] Lymphocytes/100 WBC Auto (Bl d)Ordered By: Brook Huddleston on 10-14-2022 Lymphocytes/100 WBC (Bld) 14.3 % . [facility] MCH Auto (RBC) [Entitic mass ]Ordered By: Brook Huddleston on 10-14-2022 MCH (RBC) [Entitic mass] 38.7 pg 27.5-35.2 [facility] MCHC Auto (RBC) [Mass/Vol]Or dered By: Brook Huddleston on 10-14-2022 MCHC (RBC) [Mass/Vol] 33.7 g/dL 32.5-35.6 [facility] MCV Auto (RBC) [Entitic vol] Ordered By: Brook Huddleston on 10-14-2022 MCV (RBC) [Entitic vol] 114.9 fL 83.5-101 [facility] Monocytes Auto (Bld) [#/Vol] Ordered By: Brook Huddleston on 10-14-2022 Monocytes (Bld) [#/Vol] 0.5 10*3/uL 0.0-0.8 [facility] Monocytes/100 WBC Auto (Bld) Ordered By: Brook Huddleston on 10-14-2022 Monocytes/100 WBC (Bld) 6.9 % . [facility] Neutrophils Auto (Bld) [#/Vo l]Ordered By: Brook Huddleston on 10-14-2022 Neutrophils (Bld) [#/Vol] 5.3 10*3/uL 1.8-7.7 [facility] Neutrophils/100 WBC Auto (Bl d)Ordered By: Brook Huddleston on 10-14-2022 Neutrophils/100 WBC (Bld) 75.2 % . [facility] No Panel InformationOrdered By: Brook Huddleston on 10-14-2022 Estimated GFR () 53 mL/Min [facility] Comment on above: GFR estimated refere nce range: According to KDOQI guidelines, <60 ml/min/1.73m2 is sufficient to diagnose a patient with chronic kidney disease. Pharmacy Creatinine Clearance (Chem 45.75 [facility] Nucleated erythrocytes [Pres ence] in Blood by Automated countOrdered By: Brook Huddleston on 10-14-2022 Nucleated RBC Auto Ql (Bld) 0.2 /100{WBC} 0-0.5 [facility] Ovalocyte detectionOrdered B y: Brook Huddleston on 10-14-2022 Ovalocytes LM Ql (Bld) [facility] Platelet adequacy [Presence] in Blood by Light microscopyOrdered By: Brook Huddleston on 10-14-2022 Platelets LM Ql (Bld) Decreased Normal [facility] Platelet mean volume Auto (B ld) [Entitic vol]Ordered By: Brook Huddleston on 10-14-2022 Platelet mean volume (Bld) [Entitic vol] 9.5 fL 6.6-10.1 [facility] Platelet morphology finding [Identifier] in BloodOrdered By: Brook Huddleston on 10-14-2022 Platelet morphology finding Nom (Bld) Normal Normal [facility] Platelets Auto (Bld) [#/Vol] Ordered By: Brook Huddleston on 10-14-2022 Platelets (Bld) [#/Vol] 128 10*3/uL 150-450 [facility] Poikilocytosis [Presence] in Blood by Light microscopyOrdered By: Brook Huddleston on 10-14-2022 Poikilocytosis LM Ql (Bld) Slight [facility] Polychromasia [Presence] in Blood by Light microscopyOrdered By: Brook Huddleston on 10-14-2022 Polychromasia LM Ql (Bld) Slight [facility] Potassium [Moles/volume] in Serum or PlasmaOrdered By: Brook Huddleston on 10-14-2022 Potassium [Moles/Vol] 4.7 mmol/L 3.5-5.1 [facility] Protein [Mass/volume] in Ser um or PlasmaOrdered By: Brook Flaquito on 10-14-2022 Protein [Mass/Vol] 6.2 g/dL 6.1-7.9 [facility] RBC Auto (Bld) [#/Vol]Ordere d By: Brook Flaquito on 10-14-2022 RBC (Bld) [#/Vol] 2.32 10*6/uL 3.90-5.60 [facility] RBC morphologyOrdered By: Am y Flaquito on 10-14-2022 RBC morphology finding Nom (Bld) N/A [facility] Scan and CBCon 10-14-2022 Anisocytosis Ql (Bld) Slight Normal [facility] Comment on above: Performed By: #### S CAN CBC ####[address] Basophils (Bld) [#/Vol] 0.0 10*3/uL Normal 0.0-0.2 [facility] Comment on above: Performed By: #### S CAN CBC ####[address] Basophils/100 WBC (Bld) 0.4 % Normal . [facility] Comment on above: Performed By: #### S CAN CBC ####[address] Eosinophils (Bld) [#/Vol] 0.2 10*3/uL Normal 0.0-0.45 [facility] Comment on above: Performed By: #### S CAN CBC ####[address] Eosinophils/100 WBC (Bld) 3.2 % Normal . [facility] Comment on above: Performed By: #### S CAN CBC ####[address] Erythrocyte distribution width (RBC) [Ratio] 17.1 % High 12.0-14.8 [facility] Comment on above: Performed By: #### S CAN CBC ####[place] [id number] [facility] Hematocrit (Bld) [Volume fraction] 26.7 % Low 38.8-50.0 [facility] Comment on above: Performed By: #### S CAN CBC ####[place] [id number] [facility] Hemoglobin (Bld) [Mass/Vol] 9.0 g/dL Low 13.0-17.0 [facility] Comment on above: Performed By: #### S CAN CBC ####[address] Lymphocytes (Bld) [#/Vol] 1.0 10*3/uL Normal 1.00-4.8 [facility] Comment on above: Performed By: #### S CAN CBC ####[address] Lymphocytes/100 WBC (Bld) 14.3 % Normal . [facility] Comment on above: Performed By: #### S CAN CBC ####[address] MCH (RBC) [Entitic mass] 38.7 pg High 27.5-35.2 [facility] Comment on above: Performed By: #### S CAN CBC ####[address] MCV (RBC) [Entitic vol] 114.9 fL High 83.5-101 [facility] Comment on above: Performed By: #### S CAN CBC ####[place] [id number] [facility] Mean Corpuscular HGB Conc 33.7 g/dL Normal 32.5-35.6 [facility] Comment on above: Performed By: #### S CAN CBC ####[place] [id number] [facility] Monocytes (Bld) [#/Vol] 0.5 10*3/uL Normal 0.0-0.8 [facility] Comment on above: Performed By: #### S CAN CBC ####[address] [address] [facility] Monocytes/100 WBC (Bld) 6.9 % Normal . [facility] Comment on above: Performed By: #### S CAN CBC ####[address] [address] [facility] Neutrophils (Bld) [#/Vol] 5.3 10*3/uL Normal 1.8-7.7 [facility] Comment on above: Performed By: #### S CAN CBC ####[address] [address] [facility] Neutrophils/100 WBC (Bld) 75.2 % Normal . [facility] Comment on above: Performed By: #### S CAN CBC ####[address] [address] [facility] NRBC% 0.2 /100{WBC} Normal 0-0.5 [facility] Comment on above: Performed By: #### S CAN CBC ####[address] [address] [facility] Ovalocytes Slight Normal [facility] Comment on above: Performed By: #### S CAN CBC ####[address] [address] [facility] Platelet Estimate Decreased Normal Normal [facility] Comment on above: Performed By: #### S CAN CBC ####[address] [address] [facility] Platelet mean volume (Bld) [Entitic vol] 9.5 fL Normal 6.6-10.1 [facility] Comment on above: Performed By: #### S CAN CBC ####[address] [address] [facility] Platelet Morphology Normal Normal Normal [facility] Comment on above: Result Comment: PERF ORMED BY:[address] [place], [place] [id number] MEDICAL ANYA HARDING M.D. Performed By: #### S CAN CBC ####[place] [id number] [facility] Platelets (Bld) [#/Vol] 128 10*3/uL Low 150-450 [facility] Comment on above: Performed By: #### S CAN CBC ####[place] [id number] [facility] Poikilocytosis Slight Normal [facility] Comment on above: Performed By: #### S CAN CBC ####[place] [id number] [facility] Polychromasia Slight Normal [facility] Comment on above: Performed By: #### S CAN CBC ####[place] [id number] [facility] RBC (Bld) [#/Vol] 2.32 10*6/uL Low 3.90-5.60 [facility] Comment on above: Performed By: #### S CAN CBC ####[place] [id number] [facility] Schistocytes Slight Normal [facility] Comment on above: Performed By: #### S CAN CBC ####[place] [id number] [facility] Tear Drop Cells Slight Normal [facility] Comment on above: Performed By: #### S CAN CBC ####[place] [id number] [facility] WBC (Bld) [#/Vol] 7.1 10*3/uL Normal 4.1-10.5 [facility] Comment on above: Performed By: #### S CAN CBC ####[place] [id number] [facility] Schistocytes [Presence] in B lood by Light microscopyOrdered By: Brook Huddleston on 10-14-2022 Schistocytes LM Ql (Bld) Slight [facility] Serum or plasma alanine etienne otransferase measurement without P-5'-P (enzymatic activiOrdered By: Brook Huddleston on 10-14-2022 ALT No additional P-5'-P [Catalytic activity/Vol] 20 U/L 10-60 [facility] Serum or plasma albumin/glob ulin mass ratioOrdered By: Brook Huddleston on 10-14-2022 Albumin/Globulin [Mass ratio] 1.5 {ratio} [facility] Serum or plasma anion gap de terminationOrdered By: Brook Huddleston on 10-14-2022 Anion gap [Moles/Vol] 11.3 mmol/L 6.0-15.0 [facility] Sodium [Moles/volume] in Ser um or PlasmaOrdered By: Brook Huddleston on 10-14-2022 Sodium [Moles/Vol] 135 mmol/L 136-146 [facility] Teardrop cell detectionOrder ed By: Brook Huddleston on 10-14-2022 Dacrocytes LM Ql (Bld) Slight [facility] US renal BIon 10-14-2022 US renal BI Normal [facility] Urea nitrogen [Mass/volume] in Serum or PlasmaOrdered By: Brook Huddleston on 10-14-2022 Urea nitrogen [Mass/Vol] 25 mg/dL 9 [facility] WBC Auto (Bld) [#/Vol]Ordere d By: Brook Huddleston on 10-14-2022 WBC (Bld) [#/Vol] 7.1 10*3/uL 4.1-10.5 [facility] Consultation Noteon 10-13-19 Consultation Note [id number]#1 .00CD:[address] [facility] Lab Reportson 10-13-2022 Lab Reports [id number]#1.0 0CD:[address] [facility] Screenson 10-13-2022 Screens [id number]#1 .00CD:[address] [facility] C Urineon 10-11-2022 Bacteria identified Cx Nom (U) Microbiology PROCEDURE: Urine Culture [R1] SOURCE: U Random BODY SITE: COLLECTED DATE/TIME: 10/09/2022 11:23 EST RECEIVED DATE/TIME: 10/09/2022 14:39 EST START DATE/TIME: 10/09/2022 14:39 EST FREE TEXT SOURCE: Janae Gaitan Lannette A FINAL REPORTS Final Report [] Verified Date/Time: 10/11/2022 07:10 EST 2,000 cfu/ml Mixed skin contaminants Performing Locations R1: This test was performed at: [facility], [address] [place] [address], [phone] [phone] , [facility] Comment on above: Performed By: #### [id number] #### [facility] [address] [place] [id number] Coding Summary.on 10-10-2022 Coding Summary. CD:[id number] Gh 0bWw+PGhlYWQ+PZ6VTXXyW 14koYOzuJ9XN2kOKN5BCOK PLSRPQX9UKD5eyQC3OJizP 2VybiAv JpdvdOPjNO11CVa6MJJ7tC trNGuqwD0fkWZbE1c0BdJg WJ35lQ34NInjYYDfGjJ5Ua ZpbjsgbWFy B1ngLgNqiKPaGqt+PHRhYm xlIHdpZHRoPScxMDAlJyBz bDokJA9vVu2fXQKvVCIkeW xhcHNlOiBj q5vvFRTyRRdhZD8ckLjlY0 GsoPK6XCZvy0p8Ul29kEL+ HACwQTB5xMxsBCgwz981Sz Poj8pwEPM7 mGBeEBzcHRZ1R40gg3V4ZI SfNIAhPJJ3vEY1zC7iiVxf hkhrM2RfnWAsOsQ9TFR5gQ GsxZ7rfAch jpmxfK3oLkx+Y88TVE6HUW NEQC7DBlh7J3PoGqgumLS+ DN11HKPnAX59fYJnbXKqo2 rgrMj3AkJs WNGgOSW0gFehXXvhm2HoAY CfF13whFPmu2P9PDOxzZyz tOSyGuKekCC7tQ9eGFjxta fle6wshiak Lyzhu9rddq30yH18J46nTH zoTRWdGMG6RPCoRINygRai hs8drX9uUi7+MNgtj9dpr7 iniKs7DfOc CNKwfnZqvXpmCNW4b9WtAo 41L2WtyAial7PnAwr1el34 wXVlx3E1tTI8LZclQDTftK 3oZXafKeV5 CQEhCnYwqP42eUMoTKqtJw 4umGkaaUajUO7lKRZnzqhg BEUumZ6hZGUbcUUgnRqlAU 4wNTBpbjtm f926PzHpOPY5ZMEomLYuS9 FouZ6wBkQaDYLnLHYeZ0Gk eQRpETkaP891AQmiXzK6IO PmtaNkU3Ol WSDsxKhuDoC0k5S3Ax8Cv6 NrdissSRE1ONfaNAFnOcD5 SgVnVgO5J7RpLtr1JZQjeO ynSG4gI5Kb PVRjfwlwbumevEO6YJGlIR BvmZ58bZExMDfeZx4ml6N7 m659SEDbLVVswV04Nc0ipY ogMTBwdCBU iE8jwiltx8lblvibKuPiIU FmWFl9INh3EDLowIvuLvPj PAK8XnM3PST5pPCpuY7pfF ugujuiuA7u Oyc+N22lxT4rRQB2DWU9xp uyWHWkuaFsBK84TO63M1Ns PjwvdGFibGU+PGRpdiBzdH cbDP2nHjDy p1cck4AlNVcxS2EeLKHeZX aoCka2QSBpVJX3kAI4lB0k LXKdHNamj4F8jOH0L6Yxrw Irwh7gc5gj DBMhOAujW78ecDYtc0V4XT RieFN2JDIryDesZiHkgM62 Oyc+JFJcgRrys4VcTzwkf5 mae0yliXc2 OvKfHAGgsrRwjBvkAVJ9p2 LvQt30O14kWUwiSVFmBELo UAJwJIXflJmnff5zaN8wHf 8+PGNvbCB3 zGJ1vG5hJIZhUsW9PNltF6 60YdPrkGMtZvgfo8poq0ce yZb8ByHbKRSsspSpdWvuKM X1p9ImEb50 Q35nXInnEGOsGZVaSTGzDI JqnMxjzl7zkL9oKt2+PC9j o4wtug58cH33rXW+PHRkIH Q8hPdgUDok JQSzeI3iZJozSbJ5NMZlDc AnjE37lJMpLWtxWe9isGgu jWkyYA6gOFPsawpfo405Mp Cne1dyPSXj xSSyFCzxQKB6S36rd0N4CL TiZUPlRIW0xNJ8kT1hrMiv bjogbGVmdDsgdmVydGljYW taESqlT535 IHRvcDsnPlBhdGllbnQgTm IcWEc0C4JoUac7IISxyGjx QS9nhBHuIZcjLn0bdWsusQ ulDT1gUFYl ftxlz705LiVuw9bkDTQxlF DaNAbhOFM9T03ac3S5WSHc FTAnZRS2eOO2hP5knIcwnq ogbGVmdDsg trYzwYsjOLisXXweR832TO RvcDsnPkJpcnRoIERhdGU6 IJ17PI20oCPea4D5mZR6K2 BhZGRpbmct ztnjzHU4VDSwEOMqnV11Qx 0mjWloPn6fMPZlXWU6QEBe qAZfI7KsoA7rMgUeROHoWX FeN5WmzNJh LUlzM733JUxvBsS6MRMfjb GtF9RjSVZvfNeuAdS0e2O6 Yn2BA4Z0NG38WS80oVAfm4 F0gZC8H0Ay EYOjjxupmuzpnWC6PQEjMP WvdA42Pk5jeTiaEz2sIIBf KJC7YGMppLHeV3XqgF7aIq AjMDAwMDAw K0WlnTBeUDtkF899OQkySf Y6UJUddqHfI9HiPYQweJgg DvD4t9O5Lq8JHJo2RJ02JW 63qJDql9C0 rHT6I1CgSKKclekrsbhniC G5PYInJKCeyO63Ej0knVph Ij2iXRZgDTH6ZCLmtFLsR3 HiaZ1dRiFr TADmGMKsV6WwuYPyDMhnX8 99JQcnOaV8MHJnluBwQ7Xr KKRcqTkxVtG4a0U6Zf3CUA EzFI38RXO6 rWL8HT77DG30O2XgOsynxA FibGU+PHRhYmxlIHdpZHRo IRcaKTGzBwKebHgaPE6sOf 9yZGVyLWNv nOpgsUCvQiLha4ljPNRgTS vuKU3seFcsW7JnoUW2UFLr p6n3Xj13C47aQ9OuqCM+PG MhzNA3gGE8 dU0vGkIeZhY4VSxaH745Sq LkgILqDpcpz2wdy0rgkKg1 LuR1DIJaamSmfVurEEQ4v7 QrJl91P54h IHdpZHRoPSIxNSUiIHZhbG mzbm3esP0lHf3+PGNvbCB3 lIL1vP0mPmOuYtS5TBuhA9 49InRvcCIv Qgkjq3iyp1olxTu4EpYaWM HjetQydTziZTR3d6PqUa68 B2GkuXlza5HqLda2tb43jT Ewb6D7fLD1 G4VxLKYlkexmyNUyxBicVE 1gAOIljagoRKUzdQ0dLDSk X2s9WkLqSrY5XJlbO7Endu Q7NOLimQBn AUvyHKZ0R59sb8P9MQReCI VnYGO3xFZ9cU6dtSgphusz bGVmdDsgdmVydGljYWwtYW vgC829JEAo lPtoKUJjhI1vKRRzyZLefM heMD6kCDLtaxkeSd9FAIvC KbkoUW0SRWfSXUq2J7RvKe q8JCNucWlt CI0cyEFiCSvuOg0llXuevX njUV2uCSApmdvyGWBppC2t GAHecEGfcZliQZ9sWGXxex syh855UyRh BZA1TTTscBSyB2NpxJ4qQb FgICUbSHYlV4AvoUWfLMly Z307EPdzWbX0KXGjaxQdE7 FsLWFsaWdu RdU0w0R3Yd3rGg8jVC6uWG D2IE72HO02sVBkx0X2gCV1 Z0XqSGAqmrgjdsbfqQH8NE UuKETzhG26 kJJdEUgxVn8zn5L9e311AZ SeNWMfzN14Zf6niJvtNXRs gTYFmT8khgbyp0xbmjzvRs AwMDAwMDt0 LTu5TTWdlPwiMeNvVVO6Ko T1QCO3nPHqmY7cpRtbyrxp oO5dXfw+DxuwIXEbocG5G8 BhZiv0MCUo rOfsLV3tvZCmHUctCf1yuR ucrVnzDO4yTYBrmmzhPZOp dP2aFVYecIMlaIcqWQ5iOD Ktcknge227 LzCtTAZ0QTCrlBZpZ0FqmG 3kEvUaHXLuDIGaR5GqwNHt SUobS592MDbjOeR4SGZcki MiT3PwBWHc fXukDfJ2p1G8Dt9POJjsML 84TL80dWMiz7S9mWK4U1Wp DEAbdlimuymfkBS1ICBqPA IfgW33pEZm XPehDp8qw9G4i933QJNoWO FjmB61Cy0joFebVFZrkXDK yN1yrrepz9etyyieEjSdFN WyRGx5YUm4 WBVjoZszQpYxNEX5YwX3RP Q8dHSdaI7qtWsqiyfmmC6z Oyc+LZJiJRElw0Nij8DoCY 41OL24I8Nc PjwvdGFibGU+PHRhYmxlIH dpZHRoPScxMDAlJyBzdHls WE8tLv3cLRZdVATqePvmxQ EaDxHuq6yt DLZeOQbzAH5jfZxtQ7TwmU Z7UKJxl7t9Qo09K12fT3Bb dXA+NABofGV9qXT1aC8vSb PlNfU2YGke Y933QmJegHFsLcgas0obu3 mfyYm1OrKaLYWlcjAmfNhe CNP9j9YhIp62P57jWFvxKW RoPSIyMCUi XYTdkYcrge8kxP5dDz9+PG LhrDY1tMT1vE0aBaJqOmV6 LCphM489CvNnhKEgZkgzC6 2dD0AwnLQ+ QYWbLop3PUHycCvsEC0sfQ AgZLyhPl3eMOF3BqTgDlSw ZFlpA9LzFEVsbpwbgghfeA A0MSThHORe cR33Rc8ipOvfHr0cPVLgYX N2RZInxATmZ3EycT7fGoBy TYChTJTyW4KdzDXnDSguT0 44FHwxVxX3 IYCntvTjY0EyAQJqrOrbVk C4x0D8Aa9AhRtnpREvQC9d WtPoOXc0G3JeIum3UKYlkC adAS6ftDVw FWfbKj7rkKqqaVdaHH1uXY Wxnmzeb910DdFug2olKCHf mXFnDMnjBIU9S28yt0U3PW MwMDAwMDA7 rLJ7gF4ezPaqlvgedELvfO yyqxKlvMliMFrbKLxgG595 HHTrdUvgOnFKYeh5O6EuJn b3IWBceTmn JT7pyYVoIPlvMq1xkDgenC iaSI4rSHUpvmlhx042DjAs n9wyRCDzqCVaJXxnWVX8O5 8np8K8ZURu XWRhZPI2fXT3uA3crLwbiz ogbGVmdDsgdmVydGljYWwt AOmjO979QUDgxRleTt9AGg j7Q5VqYso9 ATTjgRndGI2hfREaQPwgHx 9bxKimxUndDL7jFPUzueai q072AcJpu7xyOSUknUOeQC ysVPN5Q01m e6P0WYJnHWSoRAX5dLR7uP 1hbGlnbjogbGVmdDsgdmVy aVpoTAxvRWhiH783TFRfzK snPlBheWVy OjwvdGQ+HT15ow04Z1NxYa cjNgi8ZMPvXUG6xPL6aA6i XOYrJNsyt6N1sEE2B8Qlqw Lhyw5dw2gl YXBz (more content not included)... Normal [facility] Physician Orderon 10-09-2022 Physician Order [id number]#1.0 0CD:[address] [facility] Urology Office/Clinic Noteon 10-09-2022 Urology Office/Clinic Note Chief Complaint Bond placement HPI Staff This is a 77 year old male here to have a Bond placed due to hydroureteronephrosis. Previous DX: prostate cancer, BPH w/ LUTS, OAB, nocturia, asymptomatic micro hematuria, H/O kidney stones, glucosuria, family H/O prostate cancer. S/P TURP done 08/27/22. Cysto/UD/fulguration of bladder done 07/30/22. Dysuria: Pt states having some burning Incomplete bladder emptying: yes Hematuria: UA shows large today. Denies gross hematuria. Frequency: yes Urgency: yes Nocturia: 5x Stream: weak stream Leaking: no Post void dripping: no Wearing pads/ Depends: no Urge incontinence: no Stress incontinence: no Incontinence without Sensory Awareness: no Abdominal pain: no Flank pain: no History of Present Illness Pt indicates he still feels burning w/ urination from prior cath (removed 09/01/22). Sx about same since then. Also reports cloudy urine. Says he had clear urine right after TURP but has become cloudy. Cloudiness worsening. Denies visible blood in urine. Staff HPI reviewed and agree. See staff HPI. Review of Systems PHQ Score Initial Depression Screen Score: 0 Denies fever, chills, N/V, chest pain, SOB, abd pain, back pain. Maybe a little swelling in ankles(s). See HPI. Physical Exam Vitals & Measurements HT: 71 in HT: 180 cm WT: 95.5 kg WT: 210.1 lb BMI: 29.48 General appearance: Awake, alert, NAD, well-developed, well-nourished HEENT: Head is NC/AT Chest/Lungs: no conversational dyspnea, respirations non-labored Cardiovascular: no cyanosis or edema Abdomen: soft, TTP LLQ and central lower abd (Pt indicates it's tender because this is where he gives insulin injections), otherwise non-tender, protuberant/obese, no mass or organomegaly : Normally formed penis (circumcised), scrotum, testicles, epididymides, and spermatic cords. Genitalia w/o erythema, edema, drainage, lesions, rash or mass. Urethral opening patent w/o drainage. Bladder non-palpable. Musculoskeletal: All 4 extremities intact. Able to move all 4 extremities. Skin: warm and dry Lymph nodes: no palpable inguinal nodes Neurological: Oriented to person, place, time, and situation. Thought processes logical. Interaction appropriate for setting. Seems to be in a euthymic mood. No gross motor deficit. Assessment/Plan PVR today w/ blader scanner - 113 mL. UA today - glucose 100 mg/dL, large blood, large WBC, nitrite neg, protein >= 300 mg/dL. Discussed proteinuria and glucosuria. Discussed diabetics, vu uncontrolled diabetes, at increased risks for infections. Last saw pre coder Dr. Crain yesterday. Pt w/ stage 3 CKD. Note from yesterday brought in by and copied. Renal fcn labs printed from [facility] from 10/01/22 - SCR 2.02, eGFR 32. 1. Hydroureteronephrosis (N13.30: Unspecified hydronephrosis) Pt presents for Bond placement today for bilateral hydroureteronephrosis per Dr. Cortez. 16 Fr 2-way urethral Bond placed w/ drainage of 160 mL measured (there was a small amt of urine that missed the basin when cath first inserted). Balloon inflated w/ 15 mL sterile water. Tolerated cath insertion well w/o complication. Cath attached to leg bag and secured to left thigh w/ a StatLock. Pt scheduled for renal US 10/14/22 to check to see if hydro improved w/ cath placement. Pt to check BMP 3 days following cath placement. Has an order for BMP. CT abd/pelvis w/o contrast 10/02/22 ? Bilateral hydronephrosis and hydroureter without obstructing stone or mass. Non-obstructing calculi left kidney measuring 7 mm. Renal US 09/23/22 ? Bilateral hydronephrosis. No mass or stones. 2. Dysuria (R30.0: Dysuria) Pt indicates he still feels burning w/ urination from prior cath (removed 09/01/22). Sx about same since then. Also reports cloudy urine. Says he had clear urine right after TURP but has become cloudy. Cloudiness worsening. UA today - glucose 100 mg/dL, large blood, large WBC, nitrite neg, protein >= 300 mg/dL. Urine being sent for Cx. Will start empiric doxycycline 100 mg BID x 7 days while awaiting Cx since Pt does report some dysuria every time he urinates and it's a today and will take 48 hrs to get Cx results back. 3. Incomplete bladder emptying (R33.9: Retention of urine, unspecified) PVR today w/ blader scanner - 113 mL. 4. BPH with urinary obstruction (N40.1: Benign prostatic hyperplasia with lower urinary tract symptoms) S/P TURP done 08/27/22. Path showed prostate cancer. S/P UroLift done 05/05/22. IPSS today - 18, QoL - 5. Ordered: Measure Post Void residual urine and/or bladder capacity by US- non-imaging 26784 Urine Culture Urnls Dip Stick Auto w/o Microscopy POC 52299 5. Prostate cancer (C61: Malignant neoplasm of prostate) PO TURP path showed incidental finding of prostatic adenocarcinoma, Selene 7 (3+4), GG2. Only 6-10% of Selene 4 present. 7 of 79 prostate chips involved. No adverse pathology. cT1b favorable intermediate risk prostate ca (more content not included)... Normal [facility] Comment on above: Result Comment: Elec tronically Signed By: Kareem ZEPEDA, Janae Rodriguez\.angel\Date and Time Signed: 10/09/22 18:41 EST RAD - CT Reporton 10-06-2022 RAD - CT Report [id number]:[id number] [facility] CT abdomen pelvis wo conon 0 10-02-2022 CT abdomen pelvis wo con Normal [facility] Albumin [Mass/volume] in Ser um or PlasmaOrdered By: Brook Huddleston on 10-01-2022 Albumin [Mass/Vol] 3.6 g/dL 3.2-5.5 [facility] Anisocytosis LM Ql (Bld)Orde red By: Brook Huddleston on 10-01-2022 Anisocytosis Ql (Bld) Slight Fir [facility] Basophils Auto (Bld) [#/Vol] Ordered By: Brook Huddleston on 10-01-2022 Basophils (Bld) [#/Vol] 0.0 10*3/uL 0.0-0.2 [facility] Basophils/100 WBC Auto (Bld) Ordered By: Brook Huddleston on 10-01-2022 Basophils/100 WBC (Bld) 0.1 % . [facility] Comprehensive Metabolic Pane mana 10-01-2022 Albumin [Mass/Vol] 3.6 g/dL Normal 3.2-5.5 [facility] Comment on above: Performed By: #### C MP, SCAN CBC ####[facility] [id number] [place] [address] [facility] Albumin/Globulin [Mass ratio] 1.5 {ratio} Normal [facility] Comment on above: Performed By: #### C MP, SCAN CBC ####[facility] [id number] [place] [address] [facility] ALP [Catalytic activity/Vol] 111 U/L High 32-92 [facility] Comment on above: Performed By: #### C MP, SCAN CBC ####[facility] [id number] [place] [address] [facility] ALT [Catalytic activity/Vol] 19 U/L Normal 10-60 [facility] Comment on above: Performed By: #### C MP, SCAN CBC ####[facility] [id number] [place] [address] [facility] Anion gap [Moles/Vol] 10.6 mmol/L Normal 6.0-15.0 [facility] Comment on above: Performed By: #### C MP, SCAN CBC ####[facility] [id number] [place] [address] [facility] AST [Catalytic activity/Vol] 18 U/L Normal 10-42 [facility] Comment on above: Performed By: #### C MP, SCAN CBC ####[facility] [id number] [place] [address] [facility] Bilirubin [Mass/Vol] 0.2 mg/dL Low 0.3-1.2 [facility] Comment on above: Performed By: #### C MP, SCAN CBC ####[facility] [id number] [place] [address] [facility] Calcium [Mass/Vol] 8.9 mg/dL Normal 8.2-10.2 [facility] Comment on above: Performed By: #### C MP, SCAN CBC ####[facility] [id number] [place] [address] [place] Chloride [Moles/Vol] 106 mmol/L Normal 95-114 [facility] Comment on above: Performed By: #### C MP, SCAN CBC ####[facility] [id number] [place] [address] [place] CO2 [Moles/Vol] 23.1 mmol/L Normal 22.0-30.0 [facility] Comment on above: Performed By: #### C MP, SCAN CBC ####[facility] [id number] [place] [address] [facility] Creatinine [Mass/Vol] 2.02 mg/dL High 0.64-1.27 [facility] Comment on above: Performed By: #### C MP, SCAN CBC ####[facility] [id number] [place] [address] [place] Creatinine Clr Calc Pharmacy 34.88 [facility] Comment on above: Result Comment: PERF ORMED BY:[place] [address] [place] [phone] MEDICAL ANYA HARDING M.D. Performed By: #### C MP, SCAN CBC ####[facility] [id number] [place] [address] [facility] Estimated GFR ( Asif 39 [facility] Comment on above: Result Comment: GFR estimated reference range: According to KDOQI guidelines, <60 ml/min/1.73m2 is sufficient to diagnose a patient with chronic kidney disease. Performed By: #### C MP, SCAN CBC ####[address] [place] [address] [facility] Estimated GFR (Non- Am 32 [facility] Comment on above: Performed By: #### C MP, SCAN CBC ####[facility] [id number] [place] [address] [place] Globulin (S) [Mass/Vol] 2.4 g/dL [facility] Comment on above: Performed By: #### C MP, SCAN CBC ####[facility] [id number] [place] [address] [facility] Glucose [Mass/Vol] 251 mg/dL High 70-100 [facility] Comment on above: Result Comment: Concrete Glucose Reference Range is dependent on time and content of last meal. Glucose of more than 200 mg/dL in a nonstressed, ambulatory subject supports the diagnosis of Diabetes Mellitus. ADA recommended reference range Performed By: #### C MP, SCAN CBC ####[facility] [id number] [place] [address] [facility] Potassium [Moles/Vol] 4.7 mmol/L Normal 3.5-5.1 [facility] Comment on above: Performed By: #### C MP, SCAN CBC ####[facility] [id number] [place] [address] [place] Protein [Mass/Vol] 6.0 g/dL Low 6.1-7.9 [facility] Comment on above: Performed By: #### C MP, SCAN CBC ####[facility] [id number] Sodium [Moles/Vol] 135 mmol/L Low 136-146 [facility] Comment on above: Performed By: #### C MP, SCAN CBC ####[facility] [id number] Urea nitrogen [Mass/Vol] 21 mg/dL Normal 9-23 [facility] Comment on above: Performed By: #### C MP, SCAN CBC ####[facility] [id number] Creatinine and Glomerular fi ltration rate.predicted panel (S/P/Bld)Ordered By: Brook Huddleston on 10-01-2022 Creatinine [Mass/Vol] 2.02 mg/dL 0.64-1.27 [facility] Eosinophils Auto (Bld) [#/Vo l]Ordered By: Brook Huddleston on 10-01-2022 Eosinophils (Bld) [#/Vol] 0.2 10*3/uL 0.0-0.45 [facility] Eosinophils/100 WBC Auto (Bl d)Ordered By: Brook Huddleston on 10-01-2022 Eosinophils/100 WBC (Bld) 2.9 % . [facility] Erythrocyte distribution wid th Auto (RBC) [Ratio]Ordered By: Brook Huddleston on 10-01-2022 Erythrocyte distribution width (RBC) [Ratio] 17.3 % 12.0-14.8 [facility] Estimated glomerular filtrat ion rate (GFR) non- AmericanOrdered By: Brook Huddleston on 10-01-2022 GFR/1.73 sq M.predicted among non-blacks MDRD (S/P/Bld) [Vol rate/Area] 32 mL/Min [facility] Formson 10-01-2022 Forms [id number] 0CD:[address] [facility] Globulin Calc (S) [Mass/Vol] Ordered By: Brook Huddleston on 10-01-2022 Globulin (S) [Mass/Vol] 2.4 g/dL [facility] Hematocrit Auto (Bld) [Volum e fraction]Ordered By: Brook Huddleston on 10-01-2022 Hematocrit (Bld) [Volume fraction] 25.9 % 38.8-50.0 [facility] Hemoglobin [Mass/volume] in BloodOrdered By: Brook Huddleston on 10-01-2022 Hemoglobin (Bld) [Mass/Vol] 8.6 g/dL 13.0-17.0 [facility] Leukocytes [#/volume] correc lizbet for nucleated erythrocytes in Blood by Automated counOrdered By: Brook Huddleston on 10-01-2022 WBC corrected for nucl RBC Auto (Bld) [#/Vol] 6.4 10*3/uL 4.1-10.5 [facility] Lymphocytes Auto (Bld) [#/Vo l]Ordered By: Brook Huddleston on 10-01-2022 Lymphocytes (Bld) [#/Vol] 1.0 10*3/uL 1.00-4.8 [facility] Lymphocytes/100 WBC Auto (Bl d)Ordered By: Brook Huddleston on 10-01-2022 Lymphocytes/100 WBC (Bld) 16.3 % . [facility] MCH Auto (RBC) [Entitic mass ]Ordered By: Brook Huddleston on 10-01-2022 MCH (RBC) [Entitic mass] 38.9 pg 27.5-35.2 [facility] MCHC Auto (RBC) [Mass/Vol]Or dered By: Brook Huddleston on 10-01-2022 MCHC (RBC) [Mass/Vol] 33.4 g/dL 32.5-35.6 [facility] MCV Auto (RBC) [Entitic vol] Ordered By: Brook Huddleston on 10-01-2022 MCV (RBC) [Entitic vol] 116.5 fL 83.5-101 [facility] Monocytes Auto (Bld) [#/Vol] Ordered By: Brook Huddleston on 10-01-2022 Monocytes (Bld) [#/Vol] 0.4 10*3/uL 0.0-0.8 [facility] Monocytes/100 WBC Auto (Bld) Ordered By: Brook Huddleston on 10-01-2022 Monocytes/100 WBC (Bld) 6.8 % . [facility] Neutrophils Auto (Bld) [#/Vo l]Ordered By: Brook Huddleston on 10-01-2022 Neutrophils (Bld) [#/Vol] 4.7 10*3/uL 1.8-7.7 [facility] Neutrophils/100 WBC Auto (Bl d)Ordered By: Brook Huddleston on 10-01-2022 Neutrophils/100 WBC (Bld) 73.9 % . [facility] No Panel InformationOrdered By: Brook Huddleston on 10-01-2022 Estimated GFR () 39 mL/Min [facility] Comment on above: GFR estimated refere nce range: According to KDOQI guidelines, <60 ml/min/1.73m2 is sufficient to diagnose a patient with chronic kidney disease. Pharmacy Creatinine Clearance (Chem 34.88 [facility] Nucleated erythrocytes [Pres ence] in Blood by Automated countOrdered By: Brook Huddleston on 10-01-2022 Nucleated RBC Auto Ql (Bld) 0.1 /100{WBC} 0-0.5 [facility] Platelet adequacy [Presence] in Blood by Light microscopyOrdered By: Brook Huddleston on 10-01-2022 Platelets LM Ql (Bld) Decreased Normal [facility] Platelet mean volume Auto (B ld) [Entitic vol]Ordered By: Brook Huddleston on 10-01-2022 Platelet mean volume (Bld) [Entitic vol] 9.1 fL 6.6-10.1 [facility] Platelet morphology finding [Identifier] in BloodOrdered By: Brook Huddleston on 10-01-2022 Platelet morphology finding Nom (Bld) N/A [facility] Platelets Auto (Bld) [#/Vol] Ordered By: Brook Huddleston on 10-01-2022 Platelets (Bld) [#/Vol] 120 10*3/uL 150-450 [facility] Platelets Large [Presence] i n Blood by Light microscopyOrdered By: Brook Huddleston on 10-01-2022 Platelets Large LM Ql (Bld) Slight [facility] Poikilocytosis [Presence] in Blood by Light microscopyOrdered By: Brook Huddleston on 10-01-2022 Poikilocytosis LM Ql (Bld) Slight [facility] Polychromasia [Presence] in Blood by Light microscopyOrdered By: Brook Huddleston on 10-01-2022 Polychromasia LM Ql (Bld) Moderate [facility] Protein [Mass/volume] in Ser um or PlasmaOrdered By: Brook Huddleston on 10-01-2022 Protein [Mass/Vol] 6.0 g/dL 6.1-7.9 [facility] RBC Auto (Bld) [#/Vol]Ordere d By: Brook Flaquito on 10-01-2022 RBC (Bld) [#/Vol] 2.22 10*6/uL 3.90-5.60 [facility] RBC morphologyOrdered By: Black Huddleston on 10-01-2022 RBC morphology finding Nom (Bld) N/A [facility] Scan and CBCon 10-01-2022 Anisocytosis Ql (Bld) Slight Normal [facility] Comment on above: Performed By: #### C MP, SCAN CBC ####[place] [id number] [facility] Basophils (Bld) [#/Vol] 0.0 10*3/uL Normal 0.0-0.2 [facility] Comment on above: Result Comment: PERF ORMED BY:[address] [place], [place] [phone] MEDICAL DIRECTORMEAGAN HARDING M.D. Performed By: #### C MP, SCAN CBC ####[address] [place] [address] [place] Basophils/100 WBC (Bld) 0.1 % Normal . [facility] Comment on above: Performed By: #### C MP, SCAN CBC ####[place] [place] [id number] [facility] Eosinophils (Bld) [#/Vol] 0.2 10*3/uL Normal 0.0-0.45 [facility] Comment on above: Performed By: #### C MP, SCAN CBC ####[place] [id number] [facility] Eosinophils/100 WBC (Bld) 2.9 % Normal . [facility] Comment on above: Performed By: #### C MP, SCAN CBC ####[place] [id number] [facility] Erythrocyte distribution width (RBC) [Ratio] 17.3 % High 12.0-14.8 [facility] Comment on above: Performed By: #### C MP, SCAN CBC ####[place] [id number] [facility] Hematocrit (Bld) [Volume fraction] 25.9 % Low 38.8-50.0 [facility] Comment on above: Performed By: #### C MP, SCAN CBC ####[address] Hemoglobin (Bld) [Mass/Vol] 8.6 g/dL Low 13.0-17.0 [facility] Comment on above: Performed By: #### C MP, SCAN CBC ####[address] Large Platelets Slight Normal [facility] Comment on above: Result Comment: PERF ORMED BY:[address] [place], [place] [phone] MEDICAL ANYA HARDING M.D. Performed By: #### C MP, SCAN CBC ####[place] [id number] [facility] Lymphocytes (Bld) [#/Vol] 1.0 10*3/uL Normal 1.00-4.8 [facility] Comment on above: Performed By: #### C MP, SCAN CBC ####[place] [id number] [facility] Lymphocytes/100 WBC (Bld) 16.3 % Normal . [facility] Comment on above: Performed By: #### C MP, SCAN CBC ####[place] [id number] [facility] MCH (RBC) [Entitic mass] 38.9 pg High 27.5-35.2 [facility] Comment on above: Performed By: #### C MP, SCAN CBC ####[address] MCV (RBC) [Entitic vol] 116.5 fL High 83.5-101 [facility] Comment on above: Performed By: #### C MP, SCAN CBC ####[address] Mean Corpuscular HGB Conc 33.4 g/dL Normal 32.5-35.6 [facility] Comment on above: Performed By: #### C MP, SCAN CBC ####[address] Monocytes (Bld) [#/Vol] 0.4 10*3/uL Normal 0.0-0.8 [facility] Comment on above: Performed By: #### C MP, SCAN CBC ####[address] Monocytes/100 WBC (Bld) 6.8 % Normal . [facility] Comment on above: Performed By: #### C MP, SCAN CBC ####[address] Neutrophils (Bld) [#/Vol] 4.7 10*3/uL Normal 1.8-7.7 [facility] Comment on above: Performed By: #### C MP, SCAN CBC ####[address] Neutrophils/100 WBC (Bld) 73.9 % Normal . [facility] Comment on above: Performed By: #### C MP, SCAN CBC ####[address] NRBC% 0.1 /100{WBC} Normal 0-0.5 [facility] Comment on above: Performed By: #### C MP, SCAN CBC ####[address] Platelet Estimate Decreased Normal Normal [facility] Comment on above: Performed By: #### C MP, SCAN CBC ####[address] [address] [facility] Platelet mean volume (Bld) [Entitic vol] 9.1 fL Normal 6.6-10.1 [facility] Comment on above: Performed By: #### C MP, SCAN CBC ####[address] [address] [facility] Platelets (Bld) [#/Vol] 120 10*3/uL Low 150-450 [facility] Comment on above: Performed By: #### C MP, SCAN CBC ####[address] [address] [facility] Poikilocytosis Slight Normal [facility] Comment on above: Performed By: #### C MP, SCAN CBC ####[address] [address] [facility] Polychromasia Moderate Normal [facility] Comment on above: Performed By: #### C MP, SCAN CBC ####[address] [address] [facility] RBC (Bld) [#/Vol] 2.22 10*6/uL Low 3.90-5.60 [facility] Comment on above: Performed By: #### C MP, SCAN CBC ####[address] [address] [facility] Schistocytes Slight Normal [facility] Comment on above: Performed By: #### C MP, SCAN CBC ####[address] [address] [facility] Tear Drop Cells Slight Normal [facility] Comment on above: Performed By: #### C MP, SCAN CBC ####[address] [address] [facility] WBC (Bld) [#/Vol] 6.4 10*3/uL Normal 4.1-10.5 [facility] Comment on above: Performed By: #### C MP, SCAN CBC ####[address] [place] [address] [facility] Schistocytes [Presence] in B lood by Light microscopyOrdered By: Brook Huddleston on 10-01-2022 Schistocytes LM Ql (Bld) Slight [facility] Serum or plasma alanine etienne otransferase measurement without P-5'-P (enzymatic activiOrdered By: Brook Huddleston on 10-01-2022 ALT No additional P-5'-P [Catalytic activity/Vol] 19 U/L 10-60 [facility] Serum or plasma albumin/glob ulin mass ratioOrdered By: Brook Huddleston on 10-01-2022 Albumin/Globulin [Mass ratio] 1.5 {ratio} [facility] Serum or plasma alkaline tammy sphatase measurement (enzymatic activity/volume)Ordered By: Brook Huddleston on 10-01-2022 ALP [Catalytic activity/Vol] 111 U/L 32-92 [facility] Serum or plasma anion gap de terminationOrdered By: Brook Huddleston on 10-01-2022 Anion gap [Moles/Vol] 10.6 mmol/L 6.0-15.0 [facility] Serum or plasma aspartate am inotransferase measurement (enzymatic activity/volume)Ordered By: Brook Huddleston on 10-01-2022 AST [Catalytic activity/Vol] 18 U/L 10-42 [facility] Serum or plasma calcium reese urement (mass/volume)Ordered By: Brook Huddleston on 10-01-2022 Calcium [Mass/Vol] 8.9 mg/dL 8.2-10.2 [facility] Serum or plasma chloride gurdeep surement (moles/volume)Ordered By: Brook Huddleston on 10-01-2022 Chloride [Moles/Vol] 106 mmol/L 95-114 [facility] Serum or plasma glucose reese urement (mass/volume)Ordered By: Brook Huddleston on 10-01-2022 Glucose [Mass/Vol] 251 mg/dL 70-100 [facility] Comment on above: ADA recommended refe rence rangeRandom Glucose Reference Range is dependent on time and content of last meal. Glucose of more than 200 mg/dL in a nonstressed, ambulatory subject supports the diagnosis of Diabetes Mellitus. Serum or plasma potassium me asurement (moles/volume)Ordered By: Brook Huddleston on 10-01-2022 Potassium [Moles/Vol] 4.7 mmol/L 3.5-5.1 [facility] Serum or plasma sodium measu rement (moles/volume)Ordered By: Brook Huddleston on 10-01-2022 Sodium [Moles/Vol] 135 mmol/L 136-146 [facility] Serum or plasma total biliru bin measurement (mass/volume)Ordered By: Brook Huddleston on 10-01-2022 Bilirubin [Mass/Vol] 0.2 mg/dL 0.3-1.2 [facility] Serum or plasma total carbon dioxide measurement (moles/volume)Ordered By: Brook Huddleston on 10-01-2022 CO2 [Moles/Vol] 23.1 mmol/L 22.0-30.0 [facility] Serum or plasma urea nitroge n measurement (mass/volume)Ordered By: Brook Huddleston on 10-01-2022 Urea nitrogen [Mass/Vol] 21 mg/dL 9- [facility] Teardrop cell detectionOrder ed By: Brook Huddleston on 10-01-2022 Dacrocytes LM Ql (Bld) Slight [facility] WBC Auto (Bld) [#/Vol]Ordere d By: Brook Huddleston on 10-01-2022 WBC (Bld) [#/Vol] 6.4 10*3/uL 4.1-10.5 [facility] Urology Office/Clinic Noteon 09-29-2022 Urology Office/Clinic Note Chief Complaint PO TURP HPI Staff This is a 77 year old male here for 3 week PO TURP done 08/27/22. S/P Cysto done 07/07/22, Cysto/UD/fulguration of bladder done 07/30/22. Previous DX: BPH w/LUTS, OAB, asymptomatic micro hematuria, glycosuria, H/O kidney stones and family H/O prostate cancer. Catheter removed 09/01/22. Pt. taking Oxybutynin and would like to know if he should take one a day or two a day. PVR 129mL. Pt. urinated after PVR and only urinated 30mL. Dysuria: no Incomplete bladder emptying: no Hematuria: no Frequency: every hour to two hour Urgency: occasionally Nocturia: every hour Stream: good stream Leaking: occasionally Post void dripping: no Wearing pads/ Depends: no Urge incontinence: occasionally Stress incontinence: no Incontinence without Sensory Awareness: no Abdominal pain: no Flank pain: no History of Present Illness Tests reviewed: reviewed path report. I have reviewed the previous health record information and history for this patient from Dr. Cortez. I have reviewed and verified the staff HPI to be accurate for this encounter. There have been no associated fever, chills, flank pain, or blood in the urine. Denies any urinary infections since last encounter. Review of Systems PHQ Score Initial Depression Screen Score: 0 ROS - Provider Constitutional: denies weight loss, denies hot flashes. Eyes: denies eye problems. Gastrointestinal: denies nausea, denies vomiting. Cardiovascular: denies chest pain or angina. Integumentary: no dryness Musculoskeletal: denies musculoskeletal symptoms. ENMT: denies otolaryngeal symptoms. Respiratory: no shortness of breath. Heme/Lymph: denies easy bleeding tendency, denies easy bruising tendency. Psychiatric: no confusion, no anxiety. Genitourinary: see HPI Physical Exam Vitals & Measurements HT: 71 in HT: 180 cm WT: 95.5 kg WT: 210.1 lb BMI: 29.48 General Appearance: alert, no distress, well nourished, well developed male. Genitourinary: Flank Pain: none. Bladder: nonpalpable. Assessment/Plan Pt here with his . Pt has multiple myeloma s/p tx, currently stable. Sees Dr. Huddleston. States he is going to start IV infusions for anemia 1. Prostate cancer (C61: Malignant neoplasm of prostate) PO TURP path shows incidental finding of prostatic adenocarcinoma, [place] 7 (3+4), GG2. Only 6-10% of [place] 4 present. 7 of 78 prostate chips involved. No adverse pathology. Thoroughly discussed new diagnosis of cT1b Favorable intermediate risk prostate cancer, grade group 2 (6-10% GS4, 9% tissue resected involved) initial PSA 1.5 (11/2021). Prostate volume 17.5g (pre-TURP). PSAD 0.08 PSA: 04/11/20 - 2.62 10/29/20 - 2.84 12/05/21 - 1.49 The pathology report, which shows the presence of prostate cancer, was disclosed to the patient in detail today. I discussed with the patient all the treatment options, including active surveillance, radical prostatectomy either by open or laparoscopic robotic technique. I discussed the radiation therapy options, including prostate brachytherapy, external beam radiation therapy, and combinations of the two. I went over the pros and cons of each therapy today. Pt's inquired about prostatectomy. After discussion of what the procedure entails, patient shared he did not realize this is a major surgery and the risks involved such as bowel, bladder injury, DVT, bleeding, lymphocele, bladder neck contracture, incontinence and ED, in addition to the anesthesia and positioning risks. Discussed risk of worsening urgency, potential for incontinence with radiation. They inquired about brachytherapy- given small amt of remaining prostate s/p TURP, may not be ideal for brachytherapy. Given significant amount of comorbidities including chronic anemia undergoing infusions, uncontrolled diabetes and eye treatments, patient elected to proceed with active surveillance after shared decision making. He understands he needs optimize his current health prior to undergoing surgery if needed in the future. -Discussed referral to Dr. Slater to discuss options further but pt wishes to hold off w/ referral until at least after the MRI. Has multiple office visits going on currently. -MRI prostate in 6 months. Follow-up to review and discuss confirmation MRI fusion prostate biopsy in 6 to 12 months. -Confirm MDX now if able to send prostate chips vs at the time of biopsy Ordered: MRI Pelvis (Soft Tissue) w/ + w/o contrast PSA Total 2. BPH with urinary obstruction (N40.1: Benign prostatic hyperplasia with lower urinary tract symptoms) S/P UroLift on 05/05/22 for reported volume 45 g from DLS. Recent imaging - prostate volume 17.5g. S/p TURP done 08/27/22 -moderate bilobar hypertrophy with small but patent anterior channel, elevated bladder neck. Path shows prostate cancer, #1 Not on tamsulosin IPSS 14 from 29. Bladder scan today 129 mL, was unable to void prior. Voided 30 cc after PVR = 99 cc. -Stream has improved, d (more content not included)... Normal [facility] Comment on above: Result Comment: Elec tronically Signed By: Diego RICKS, Vesna Taylor\.br\Date and Time Signed: 09/29/22 11:35 EST RAD - MISCon 09-26-2022 RAD - MISC [id number] 20 [id number] 0CD:[address] [facility] RAD - Ultrasound Reporton RAD - Ultrasound Report [id number] 0CD:[address] [facility] Automated epithelial cells c ount in urine sediment (number/area)Ordered By: Price Crain on 09-23-2022 Epithelial cells Auto (Urine sed) [#/Area] 3-4 [HPF] 0-2 [facility] Automated erythrocytes count in urine sediment (number/area)Ordered By: Price Crain on 09-23-2022 RBC Auto (Urine sed) [#/Area] 5-9 [HPF] 0-4 [facility] Automated leukocytes count i n urine sediment (number/area)Ordered By: Price Crain on 09-23-2022 WBC Auto (Urine sed) [#/Area] Innumerable [HPF] 0-4 [facility] Bilirubin Auto test strip Ql (U)Ordered By: Price Crain on 09-23-2022 Bilirubin Ql (U) Negative Negative [facility] Body fluid albumin measureme nt (mass/volume)Ordered By: Price Crain on 09-23-2022 Albumin (Body fld) [Mass/Vol] 3.5 g/dL 3.2-5.5 [facility] Comprehensive Metabolic Pane mana 09-23-2022 Albumin [Mass/Vol] 3.5 g/dL Normal 3.2-5.5 [facility] Comment on above: Order Comment: Reaso n for Exam RINA (acute kidney injury);Hypertensive chronic kidney diseas Performed By: #### C MP, PTH, MG, [id number], URIC ####[facility] [id number] [place] [id number] [facility] Albumin/Globulin [Mass ratio] 1.3 {ratio} Normal [facility] Comment on above: Order Comment: Reaso n for Exam RINA (acute kidney injury);Hypertensive chronic kidney diseas Performed By: #### C MP, PTH, MG, [id number], URIC ####[address] [address] [facility] ALP [Catalytic activity/Vol] 105 U/L High 32-92 [facility] Comment on above: Order Comment: Reaso n for Exam RINA (acute kidney injury);Hypertensive chronic kidney diseas Performed By: #### C MP, PTH, MG, [id number], URIC ####[address] [address] [facility] ALT [Catalytic activity/Vol] 19 U/L Normal 10-60 [facility] Comment on above: Order Comment: Reaso n for Exam RINA (acute kidney injury);Hypertensive chronic kidney diseas Performed By: #### C MP, PTH, MG, [id number], URIC ####[address] [address] [facility] Anion gap [Moles/Vol] 12.4 mmol/L Normal 6.0-15.0 [facility] Comment on above: Order Comment: Reaso n for Exam RINA (acute kidney injury);Hypertensive chronic kidney diseas Performed By: #### C MP, PTH, MG, [id number], URIC ####[address] [address] [facility] AST [Catalytic activity/Vol] 19 U/L Normal 10-42 [facility] Comment on above: Order Comment: Reaso n for Exam RINA (acute kidney injury);Hypertensive chronic kidney diseas Performed By: #### C MP, PTH, MG, [id number], URIC ####[address] [address] [facility] Bilirubin [Mass/Vol] 0.4 mg/dL Normal 0.3-1.2 [facility] Comment on above: Order Comment: Reaso n for Exam RINA (acute kidney injury);Hypertensive chronic kidney diseas Performed By: #### C MP, PTH, MG, [id number], URIC ####[address] [address] [facility] Calcium [Mass/Vol] 9.3 mg/dL Normal 8.2-10.2 [facility] Comment on above: Order Comment: Reaso n for Exam RINA (acute kidney injury);Hypertensive chronic kidney diseas Performed By: #### C MP, PTH, MG, [id number], URIC ####[place] [place] [address] [facility] Chloride [Moles/Vol] 103 mmol/L Normal 95-114 [facility] Comment on above: Order Comment: Reaso n for Exam RINA (acute kidney injury);Hypertensive chronic kidney diseas Performed By: #### C MP, PTH, MG, [id number], URIC ####[address] [address] [facility] CO2 [Moles/Vol] 22.4 mmol/L Normal 22.0-30.0 [facility] Comment on above: Order Comment: Reaso n for Exam RINA (acute kidney injury);Hypertensive chronic kidney diseas Performed By: #### C MP, PTH, MG, [id number], URIC ####[address] [address] [facility] Creatinine [Mass/Vol] 1.90 mg/dL High 0.64-1.27 [facility] Comment on above: Order Comment: Reaso n for Exam RINA (acute kidney injury);Hypertensive chronic kidney diseas Performed By: #### C MP, PTH, MG, [id number], URIC ####[address] [address] [facility] Estimated GFR ( Asif 42 [facility] Comment on above: Order Comment: Reaso n for Exam RINA (acute kidney injury);Hypertensive chronic kidney diseas Result Comment: GFR estimated reference range: According to KDOQI guidelines, <60 ml/min/1.73m2 is sufficient to diagnose a patient with chronic kidney disease. Performed By: #### C MP, PTH, MG, [id number], URIC ####[address] [address] [facility] Estimated GFR (Non- Am 35 [facility] Comment on above: Order Comment: Reaso n for Exam RINA (acute kidney injury);Hypertensive chronic kidney diseas Performed By: #### C MP, PTH, MG, [id number], URIC ####[address] [address] [facility] Globulin (S) [Mass/Vol] 2.7 g/dL Normal [facility] Comment on above: Order Comment: Reaso n for Exam RINA (acute kidney injury);Hypertensive chronic kidney diseas Performed By: #### C MP, PTH, MG, [id number], URIC ####[address] [address] [facility] Glucose [Mass/Vol] 245 mg/dL High 70-100 [facility] Comment on above: Order Comment: Reaso n for Exam RINA (acute kidney injury);Hypertensive chronic kidney diseas Result Comment: [facility] Glucose Reference Range is dependent on time and content of last meal. Glucose of more than 200 mg/dL in a nonstressed, ambulatory subject supports the diagnosis of Diabetes Mellitus. ADA recommended reference range Performed By: #### C MP, PTH, MG, [id number], URIC ####[address] [address] [facility] Potassium [Moles/Vol] 4.8 mmol/L Normal 3.5-5.1 [facility] Comment on above: Order Comment: Reaso n for Exam RINA (acute kidney injury);Hypertensive chronic kidney diseas Performed By: #### C MP, PTH, MG, [id number], URIC ####[address] [address] [facility] Protein [Mass/Vol] 6.2 g/dL Normal 6.1-7.9 [facility] Comment on above: Order Comment: Reaso n for Exam RINA (acute kidney injury);Hypertensive chronic kidney diseas Performed By: #### C MP, PTH, MG, [id number], URIC ####[address] [address] [facility] Sodium [Moles/Vol] 133 mmol/L Low 136-146 [facility] Comment on above: Order Comment: Reaso n for Exam RINA (acute kidney injury);Hypertensive chronic kidney diseas Performed By: #### C MP, PTH, MG, [id number], URIC ####[facility] [place] [address] [facility] Urea nitrogen [Mass/Vol] 23 mg/dL Normal 9- [facility] Comment on above: Order Comment: Reaso n for Exam RINA (acute kidney injury);Hypertensive chronic kidney diseas Performed By: #### C MP, PTH, MG, [id number], URIC ####[address] [place] [address] [facility] Creatinine [Mass/volume] in UrineOrdered By: Price Crain on 09-23-2022 Creatinine (U) [Mass/Vol] 52.1 mg/dL [facility] Comment on above: No reference range e stablished Creatinine and Glomerular fi ltration rate.predicted panel (S/P/Bld)Ordered By: Price Crain on 09-23-2022 Creatinine [Mass/Vol] 1.90 mg/dL 0.64-1.27 [facility] Dipstick and Microscopicon 0 09-23-2022 Appearance (U) Cloudy Critically abnormal Clear [facility] Comment on above: Order Comment: Reaso n for Exam IRNA (acute kidney injury);Hypertensive chronic kidney diseas Name Collection Type:: Clean-Voided Midstream Performed By: #### A DDONUAPLUS, CUU ####[address] [place] [address] [facility] Bacteria,Urine 1+ High None Seen [facility] Comment on above: Order Comment: Reaso n for Exam RINA (acute kidney injury);Hypertensive chronic kidney diseas Name Collection Type:: Clean-Voided Midstream Result Comment: PERF ORMED BY:[address] [place], [place] [phone] MEDICAL DIRECTORMEAGAN HARDING M.D. Performed By: #### A DDONUAPLUS, CUU ####[address] [place] [address] [facility] Bilirubin,Urine Negative Normal Negative [facility] Comment on above: Order Comment: Reaso n for Exam RINA (acute kidney injury);Hypertensive chronic kidney diseas Name Collection Type:: Clean-Voided Midstream Performed By: #### A DDONUAPLUS, CUU ####[place] [id number] [facility] Color (U) Yellow Normal Yellow [facility] Comment on above: Order Comment: Reaso n for Exam RINA (acute kidney injury);Hypertensive chronic kidney diseas Name Collection Type:: Clean-Voided Midstream Performed By: #### A DDONUAPLUS, CUU ####[place] [id number] [facility] Glucose Ql (U) 500 mg/dL High Normal [facility] Comment on above: Order Comment: Reaso n for Exam RINA (acute kidney injury);Hypertensive chronic kidney diseas Name Collection Type:: Clean-Voided Midstream Performed By: #### A DDONUAPLUS, CUU ####[address] [address] [facility] Ketones Ql (U) Negative Normal Negative [facility] Comment on above: Order Comment: Reaso n for Exam RINA (acute kidney injury);Hypertensive chronic kidney diseas Name Collection Type:: Clean-Voided Midstream Performed By: #### A DDONUAPLUS, CUU ####[place] [id number] [facility] Leukocyte esterase Test strip Ql (U) 4+ High Negative [facility] Comment on above: Order Comment: Reaso n for Exam RINA (acute kidney injury);Hypertensive chronic kidney diseas Name Collection Type:: Clean-Voided Midstream Performed By: #### A DDONUAPLUS, CUU ####[id number] [place] Nitrite,Urine Negative Normal Negative [facility] Comment on above: Order Comment: Reaso n for Exam RINA (acute kidney injury);Hypertensive chronic kidney diseas Name Collection Type:: Clean-Voided Midstream Performed By: #### A DDONUAPLUS, CUU ####[address] [address] [facility] Occult Blood,Urine 3+ High Negative [facility] Comment on above: Order Comment: Reaso n for Exam RINA (acute kidney injury);Hypertensive chronic kidney diseas Name Collection Type:: Clean-Voided Midstream Result Comment: PERF ORMED BY:[address] [place], [place] [phone] MEDICAL DIRECTORMEAGAN HARDING M.D. Performed By: #### A DDONUAPLUS, CUU ####[address] [address] [facility] pH (U) 6.5 [pH] Normal 5.0-9.0 [facility] Comment on above: Order Comment: Reaso n for Exam RINA (acute kidney injury);Hypertensive chronic kidney diseas Name Collection Type:: Clean-Voided Midstream Performed By: #### A DDONUAPLUS, CUU ####[place] [id number] [facility] Protein (U) [Mass/Vol] 30 mg/dL High Negative Fi [facility] Comment on above: Order Comment: Reaso n for Exam RINA (acute kidney injury);Hypertensive chronic kidney diseas Name Collection Type:: Clean-Voided Midstream Performed By: #### A DDONUAPLUS, CUU ####[address] [address] [facility] RBC,Urine 5-9 High 0-4 [facility] Comment on above: Order Comment: Reaso n for Exam RINA (acute kidney injury);Hypertensive chronic kidney diseas Name Collection Type:: Clean-Voided Midstream Performed By: #### A DDONUAPLUS, CUU ####[address] [address] [facility] Specificy [place],Urine 1.015 Normal 1.001-1.030 [facility] Comment on above: Order Comment: Reaso n for Exam RINA (acute kidney injury);Hypertensive chronic kidney diseas Name Collection Type:: Clean-Voided Midstream Performed By: #### A DDONUAPLUS, CUU ####[address] [address] [facility] Squamous Epithelial Cell,Urine 3-4 High 0-2 [facility] Comment on above: Order Comment: Reaso n for Exam RINA (acute kidney injury);Hypertensive chronic kidney diseas Name Collection Type:: Clean-Voided Midstream Performed By: #### A DDONUAPLUS, CUU ####[facility] Urobilinogen,Urine Normal Normal Normal [facility] Comment on above: Order Comment: Reaso n for Exam RINA (acute kidney injury);Hypertensive chronic kidney diseas Name Collection Type:: Clean-Voided Midstream Performed By: #### A DDONUAPLUS, CUU ####[place] [address] WBC,Urine Innumerable High 0-4 [facility] Comment on above: Order Comment: Reaso n for Exam RINA (acute kidney injury);Hypertensive chronic kidney diseas Name Collection Type:: Clean-Voided Midstream Performed By: #### A DDONUAPLUS, CUU ####[facility] Estimated glomerular filtrat ion rate (GFR) non- AmericanOrdered By: Price Crain on 09-23-2022 GFR/1.73 sq M.predicted among non-blacks MDRD (S/P/Bld) [Vol rate/Area] 35 mL/Min [facility] Globulin Calc (S) [Mass/Vol] Ordered By: Price Crain on 09-23-2022 Globulin (S) [Mass/Vol] 2.7 g/dL [facility] Ketones Auto test strip (U) [Mass/Vol]Ordered By: Price Crain on 09-23-2022 Ketones (U) [Mass/Vol] Negative Negative [facility] Laboratory - Chemistry and C hemistry - challengeOrdered By: Price Crain on 09-23-2022 Magnesium [Mass/Vol] 2.0 mg/dL 1.6-2.6 [facility] Magnesiumon 09-23-2022 Magnesium [Mass/Vol] 2.0 mg/dL Normal 1.6-2.6 [facility] Comment on above: Order Comment: Reaso n for Exam RINA (acute kidney injury);Hypertensive chronic kidney diseas Performed By: #### C MP, PTH, MG, [id number], URIC ####[facility] [id number] [place] [address] [facility] No Panel InformationOrdered By: Price Crain on 09-23-2022 25-Hydroxy Vitamin D Total 43.4 ng/mL 30-100 [facility] Comment on above: VITAMIN D STATUS 25( [place])VITAMIN D RANGE (ng/mL) Deficient <20 Insufficient 20 to <30Sufficient 30 to 100Reference: Dieudonne MF,Brendon NC, Estrella CARTER, et al. Evaluation,treatment, and prevention of vitamin D deficiency; an Endocrine Society clinical practice guideline. JCEM. 2010; 96(7):1911-30. Estimated GFR () 42 mL/Min [facility] Comment on above: GFR estimated refere nce range: According to KDOQI guidelines, <60 ml/min/1.73m2 is sufficient to diagnose a patient with chronic kidney disease. Pharmacy Creatinine Clearance (Chem N/A [facility] Parathyroid Hormone Intacton 09-23-2022 Parathyroid Hormone Intact 69.0 pg/mL Normal 12-88 [facility] Comment on above: Order Comment: Reaso n for Exam RINA (acute kidney injury);Hypertensive chronic kidney diseas Result Comment: PERF ORMED BY:[address] [place], [place] [phone] MEDICAL DIRECTORMEAGAN HARDING M.D. Performed By: #### C MP, PTH, MG, [id number], URIC ####[facility] [place] [address] [facility] Protein Auto test strip (U) [Mass/Vol]Ordered By: Price Crain on 09-23-2022 Protein (U) [Mass/Vol] 30 mg/dL Negative [facility] Protein Creat Ratio Ur Rando mon 09-23-2022 Creatinine, Urine (Random) 52.1 mg/dL Normal [facility] Comment on above: Order Comment: Reaso n for Exam RINA (acute kidney injury);Hypertensive chronic kidney diseas Result Comment: No r eference range established Performed By: #### P ROCRERAT ####[address] [address] [facility] Protein (U) [Mass/Vol] 67 mg/dL High 0-9 [facility] Comment on above: Order Comment: Reaso n for Exam RINA (acute kidney injury);Hypertensive chronic kidney diseas Performed By: #### P ROCRERAT ####[address] [address] [facility] Urine Protein/Creatinine Ratio 1286 mg/g{Cre} High 0-200 [facility] Comment on above: Order Comment: Reaso n for Exam RINA (acute kidney injury);Hypertensive chronic kidney diseas Result Comment: PERF ORMED BY:[address] [place], [place] [phone] MEDICAL DIRECTORMEAGAN HARDING M.D. Performed By: #### P ROCRERAT ####[address] [address] [facility] Protein [Mass/volume] in Ser um or PlasmaOrdered By: Price Crain on 09-23-2022 Protein [Mass/Vol] 6.2 g/dL 6.1-7.9 [facility] Protein [Mass/volume] in Uri neOrdered By: Price Crain on 09-23-2022 Protein (U) [Mass/Vol] 67 mg/dL 0-9 [facility] Serum or plasma alanine etienne otransferase measurement without P-5'-P (enzymatic activiOrdered By: Price Crain on 09-23-2022 ALT No additional P-5'-P [Catalytic activity/Vol] 19 U/L 10-60 [facility] Serum or plasma albumin/glob ulin mass ratioOrdered By: Price Crain on 09-23-2022 Albumin/Globulin [Mass ratio] 1.3 {ratio} [facility] Serum or plasma alkaline tammy sphatase measurement (enzymatic activity/volume)Ordered By: Price Crain on 09-23-2022 ALP [Catalytic activity/Vol] 105 U/L 32-92 [facility] Serum or plasma anion gap de terminationOrdered By: Price Crain on 09-23-2022 Anion gap [Moles/Vol] 12.4 mmol/L 6.0-15.0 [facility] Serum or plasma aspartate am inotransferase measurement (enzymatic activity/volume)Ordered By: Price Crain on 09-23-2022 AST [Catalytic activity/Vol] 19 U/L 10-42 [facility] Serum or plasma calcium reese urement (mass/volume)Ordered By: Price Crain on 09-23-2022 Calcium [Mass/Vol] 9.3 mg/dL 8.2-10.2 [facility] Serum or plasma chloride gurdeep surement (moles/volume)Ordered By: Price Crain on 09-23-2022 Chloride [Moles/Vol] 103 mmol/L 95-114 [facility] Serum or plasma glucose reese urement (mass/volume)Ordered By: Price Crain on 09-23-2022 Glucose [Mass/Vol] 245 mg/dL 70-100 [facility] Comment on above: ADA recommended refe rence rangeRandom Glucose Reference Range is dependent on time and content of last meal. Glucose of more than 200 mg/dL in a nonstressed, ambulatory subject supports the diagnosis of Diabetes Mellitus. Serum or plasma intact parat hyroid hormone measurement (mass/volume)Ordered By: Price Crain on 09-23-2022 Parathyrin.intact [Mass/Vol] 69.0 pg/mL 12-88 [facility] Serum or plasma potassium me asurement (moles/volume)Ordered By: Price Crain on 09-23-2022 Potassium [Moles/Vol] 4.8 mmol/L 3.5-5.1 [facility] Serum or plasma sodium measu rement (moles/volume)Ordered By: Price Crain on 09-23-2022 Sodium [Moles/Vol] 133 mmol/L 136-146 [facility] Serum or plasma total biliru bin measurement (mass/volume)Ordered By: Price Crain on 09-23-2022 Bilirubin [Mass/Vol] 0.4 mg/dL 0.3-1.2 [facility] Serum or plasma total carbon dioxide measurement (moles/volume)Ordered By: Price Crain on 09-23-2022 CO2 [Moles/Vol] 22.4 mmol/L 22.0-30.0 [facility] Serum or plasma urea nitroge n measurement (mass/volume)Ordered By: Price Crain on 09-23-2022 Urea nitrogen [Mass/Vol] 23 mg/dL 9-23 [facility] Serum or plasma uric acid me asurement (mass/volume)Ordered By: Price Crain on 09-23-2022 Urate [Mass/Vol] 4.5 mg/dL 2.6-7.2 [facility] US renal BIon 09-23-2022 US renal BI Normal [facility] Uric Acidon 09-23-2022 Urate [Mass/Vol] 4.5 mg/dL Normal 2.6-7.2 [facility] Comment on above: Order Comment: Reaso n for Exam RINA (acute kidney injury);Hypertensive chronic kidney diseas Performed By: #### C MP, PTH, MG, [id number], URIC ####[facility] [id number] Urine Cultureon 09-23-2022 Bacteria identified Cx Nom (U) No Growth 2 Days PERFORMED BY: [facility] [address] [place] [address] PATHOLOGIST [employer] DIRECTOR MEAGAN HARDING M.D. [facility] Comment on above: Performed By: #### A DDONUAPLUS, CUU ####[facility] [id number] [place] [id number] [facility] Urine appearanceOrdered By: Price Crain on 09-23-2022 Appearance (U) Cloudy Clear [facility] Urine bacteria detection by automated methodOrdered By: Price Crain on 09-23-2022 Bacteria Auto Ql (U) 1+ None Seen [facility] Urine colorOrdered By: Price Crain on 09-23-2022 Color (U) Yellow Yellow [facility] Urine culture routineOrdered By: Price Crain on 09-23-2022 Bacteria identified Cx Nom (U) No Growth 2 Days [facility] Bacteria identified Cx Nom (U) No Growth 2 Days [facility] Urine glucose measurement by automated test strip (mass/volume)Ordered By: Price Crain on 09-23-2022 Glucose Auto test strip (U) [Mass/Vol] 500 mg/dL Normal [facility] Urine hemoglobin detection b y automated test stripOrdered By: Price Crain on 09-23-2022 Hemoglobin Auto test strip Ql (U) 3+ Negative [facility] Urine leukocyte esterase det ection by automated test stripOrdered By: Price Crain on 09-23-2022 Leukocyte esterase Auto test strip Ql (U) 4+ Negative [facility] Urine nitrite detection by a utomated test stripOrdered By: Price Crain on 09-23-2022 Nitrite Auto test strip Ql (U) Negative Negative [facility] Urine protein/creatinine rat ioOrdered By: Price Crain on 09-23-2022 Protein/Creatinine (U) [Ratio] 1286 mg/g{Cre} 0-200 [facility] Urobilinogen Auto test strip (U) [Mass/Vol]Ordered By: Price Crain on 09-23-2022 Urobilinogen (U) [Mass/Vol] Normal mg/dL Normal [facility] Vitamin D 25 Hydroxy Totalon 09-23-2022 Vitamin D 25 Hydroxy Total 43.4 ng/mL Normal 30-100 [facility] Comment on above: Order Comment: Reaso n for Exam RINA (acute kidney injury);Hypertensive chronic kidney diseas Result Comment: [place]IE MIN D STATUS 25([place])VITAMIN D RANGE (ng/mL) Deficient <20 Insufficient 20 to <30 Sufficient 30 to 100 Reference: Dieudonne MF,Brendon NC, Estrella CARTER, et al. Evaluation,treatment, and prevention of vitamin D deficiency; an Endocrine Society clinical practice guideline. JCEM. 2010; 96(7):1911-30. Performed By: #### C MP, PTH, MG, [id number], URIC ####[facility] [id number] [place] [address] [facility] XR abdomen 1Von 02-07-2023 XR abdomen 1V Normal [facility] pH Auto test strip (U)Ordere d By: Price Crain on 09-23-2022 pH (U) 1.015 [pH] 1.001-1.030 [facility] pH (U) 6.5 [pH] 5.0-9.0 [facility] Consultation Noteon 09-19-19 Consultation Note [id number] 0CD:[address] [facility] Pathology Noteon 09-19-2022 Pathology Note [id number] 0CD:[address] [facility] Ambulatory Visit Summaryon 0 09-18-2022 Ambulatory Visit Summary PATSY MILLS :1945 Visit Date:09/18/2022 Ambulatory Visit Instructions Your Diagnosis Prostate cancer BPH with urinary obstruction OAB (overactive bladder) Asymptomatic microscopic hematuria History of kidney stones Glycosuria Family history of prostate cancer Tests Performed MRI Pelvis (Soft Tissue) w/ + w/o contrast -- Results Pending -- US Renal -- Results Pending -- XR Abdomen 1 View -- Results Pending -- Please visit your patient portal for your results or contact your primary care physician. Your Care Team Attending Physician - Diego RICKS, Vesna Taylor Primary Care Physician - HELEN HEATH MD This Is Your Medications List trospium (trospium 20 mg oral tablet) Contact prescribing physician if questions or concerns acyclovir (Zovirax 400 mg Tab) aspirin (aspirin 81 mg Chew Tab) atorvastatin (atorvastatin 20 mg Tab) bifidobacterium-lactob acillus (Probiotic + Colostrum) cholecalciferol (Vitamin D3 2000 intl units) famotidine (famotidine 20 mg Tab) insulin glargine (Lantus insulin) insulin lispro (Humalog) lenalidomide (Revlimid 5 mg oral capsule) metformin (metformin 500 mg Tab) potassium chloride (potassium chloride 20 mEq ER Tab) [Image Removed: STOP]Stop taking these medications oxybutynin (oxybutynin 5 mg ER Tab) tamsulosin (tamsulosin 0.4 mg Cap) Procedures Performed TURP - Transurethral resection of prostate (08/27/2022), Transurethral insertion of prostatic urethral lift implant (05/05/2022), Cystoscopic removal of ureteric stent (08/20/2012), Cystoscopic ureteroneocystostomy with insertion 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 Discharge Vitals Height 180 cm Height 71 in Weight 95.5 kg Weight 210.1 lb BMI 29.48 What to do next Scheduled Follow-Up Appointments Thursday 10:45 AM EDT With: Vesna Cortez MD Where: [facility] Patient Educationon 09-18-19 23 Patient Education Oncology Prostate Cancer The prostate is a walnut-sized gland that is involved in the production of semen. It is located below a man's bladder, in front of the rectum. Prostate cancer is the abnormal growth of cells in the prostate gland. What are the causes? The exact cause of this condition is not known. What increases the risk? This condition is more likely to develop in men who: ? Are older than age 65. ? Are -[place]. ? Are obese. ? Have a family history of prostate cancer. ? Have a family history of breast cancer. What are the signs or symptoms? Symptoms of this condition include: ? A need to urinate often. ? Weak or interrupted flow of urine. ? Trouble starting or stopping urination. ? Inability to urinate. ? Pain or burning during urination. ? Painful ejaculation. ? Blood in urine or semen. ? Persistent pain or discomfort in the lower back, lower abdomen, hips, or upper thighs. ? Trouble getting an erection. ? Trouble emptying the bladder all the way. How is this diagnosed? This condition can be diagnosed with: ? A digital rectal exam. For this exam, a health care provider inserts a gloved finger into the rectum to feel the prostate gland. ? A blood test called a prostate-specific antigen (PSA) test. ? An imaging test called transrectal ultrasonography. ? A procedure in which a sample of tissue is taken from the prostate and examined under a microscope (prostate biopsy). Once the condition is diagnosed, tests will be done to determine how far the cancer has spread. This is called staging the cancer. Staging may involve imaging tests, such as: ? A bone scan. ? A CT scan. ? A PET scan. ? An MRI. The stages of prostate cancer are as follows: ? Stage I. At this stage, the cancer is found in the prostate only. The cancer is not visible on imaging tests and it is usually found by accident, such as during a prostate surgery. ? Stage II. At this stage, the cancer is more advanced than it is in stage I, but the cancer has not spread outside the prostate. ? Stage III. At this stage, the cancer has spread beyond the outer layer of the prostate to nearby tissues. The cancer may be found in the seminal vesicles, which are near the bladder and the prostate. ? Stage IV. At this stage, the cancer has spread other parts of the body, such as the lymph nodes, bones, bladder, rectum, liver, or lungs. How is this treated? Treatment for this condition depends on several factors, including the stage of the cancer, your age, personal preferences, and your overall health. Talk with your health care provider about treatment options that are recommended for you. Common treatments include: ? Observation for early stage prostate cancer (active surveillance). This involves having exams, blood tests, and in some cases, more biopsies. For some men, this is the only treatment needed. ? Surgery. Types of surgeries include: ? Open surgery. In this surgery, a larger incision is made to remove the prostate. ? A laparoscopic prostatectomy. This is a surgery to remove the prostate and lymph nodes through several, small incisions. It is often referred to as a minimally invasive surgery. ? A robotic prostatectomy. This is a surgery to remove the prostate and lymph nodes with the help of a robotic arm that is controlled by a computer. ? Orchiectomy. This is a surgery to remove the testicles. ? Cryosurgery. This is a surgery to freeze and destroy cancer cells. ? Radiation treatment. Types of radiation treatment include: ? External beam radiation. This type aims beams of radiation from outside the body at the prostate to destroy cancerous cells. ? Brachytherapy. This type uses radioactive needles, seeds, wires, or tubes that are implanted into the prostate gland. Like external beam radiation, brachytherapy destroys cancerous cells. An advantage is that this type of radiation limits the damage to surrounding tissue and has fewer side effects. ? High-intensity, focused ultrasonography. This treatment destroys cancer cells by delivering high-energy ultrasound waves to the cancerous cells. ? Chemotherapy medicines. This treatment kills cancer cells or stops them from multiplying. ? Hormone treatment. This treatment involves taking medicines that act on one of the male hormones (testosterone): ? By stopping your body from producing testosterone. ? By blocking testosterone from reaching cancer cells. Follow these instructions at home: ? Take jvfy-deg-dhoxroj and prescription medicines only as told by your health care provider. ? Maintain a healthy diet. ? Get plenty of sleep. ? Consider joining a support group for men who have prostate cancer. Meeting with a support group may help you learn to cope with the stress of having cancer. ? Keep all follow-up visits as told by your health care provider. This is important. ? If you have to go to the hospital, notify your cancer specialis (more content not included)... [facility] Reminderson 09-18-2022 Reminders - From: Aleah Starr To: Angelic Hayden; Sent: 09/18/2022 10:20:28 EST Show up: 12/16/2022 11:20:00 EDT Subject: MRI of prostate Due Date/Time: 01/16/2023 11:20:00 EDT Reminder Message Patient needs MRI of prostate done prior to 6 month appointment. Along with PSA [facility] Screenson 09-18-2022 Screens [id number]#1. 00CD:127 [facility] Screens [id number]#1. 00CD:[address] [facility] [address] biopsyOrdered By: Brook Gomez se on 09-03-2022 Transferrin [Mass/Vol] 173 mg/dL 180-380 [facility] Consultation Noteon 09-03-19 23 Consultation Note [id number]#1.0 0CD:127 [facility] Erythropoetin (EPO), Serumon 09-03-2022 Erythropoetin (EPO), Serum 409.2 m[iU]/mL High 2.6-18.5 [facility] Comment on above: Result Comment: [employer] DxI 800 Immunoassay System Values obtained with different assay methods or kits cannot be used interchangeably. Results cannot be interpreted as absolute evidence of the presence or absence of malignant disease. Performed at: [address] [id number] Hunting Guide: Melchor Agrawal PhD, Phone: [phone] Performed By: #### H [address], METH, EPO ####[facility] ,#### FE and TIBC, CONOR ####[place] [address] [place] [id number] [facility] Ferritinon 09-03-2022 Ferritin [Mass/Vol] 574.6 ng/mL High 23.9-336.2 [facility] Comment on above: Result Comment: PERF ORMED BY:[address] [address] [place], [place] [phone] MEDICAL DIRECTORMEAGAN HARDING M.D. Performed By: #### H [address], METH, EPO ####[facility] ,#### FE and TIBC, CONOR ####[address] Ferritin [Mass/volume] in Se rum or PlasmaOrdered By: Brook Huddleston on 09-03-2022 Ferritin [Mass/Vol] 574.6 ng/mL 23.9-336.2 [facility] Homocysteine, Plasma/Serumon 09-03-2022 Homocysteine, Plasma/Serum 16.0 umol/L Normal 0.0-19.2 [facility] Comment on above: Result Comment: Perf ormed at: [address] [id number] Hunting Guide: Melchor Agrawal PhD, Phone: [phone] BY:[address] [address] [place], [place] [phone] MEDICAL DIRECTORMEAGAN HARDING M.D. Performed By: #### H [address], METH, EPO ####[facility] ,#### FE and TIBC, CONOR ####[address] Iron [Mass/volume] in Serum or PlasmaOrdered By: Brook Huddleston on 09-03-2022 Iron [Mass/Vol] 90 ug/dL 40-160 [facility] Iron and TIBC Profileon 08-17 % Iron Saturation 37.2 % Normal 20-50 [facility] Comment on above: Performed By: #### H OM[address] PL, METH, EPO ####[facility] ,#### FE and TIBC, CONOR ####[address] Iron [Mass/Vol] 90 ug/dL Normal 40-160 [facility] Comment on above: Performed By: #### H [address], METH, EPO ####[facility] ,#### FE and TIBC, CONOR ####[address] Total Iron Binding Capacity 242 ug/dL Low 255-450 [facility] Comment on above: Performed By: #### H [address], METH, EPO ####[facility] ,#### FE and TIBC, CONOR ####[address] Transferrin [Mass/Vol] 173 mg/dL Low 180-380 [facility] Comment on above: Performed By: #### H [address] PL, METH, EPO ####[facility] ,#### FE and TIBC, CONOR ####[address] Iron binding capacity [Mass/ volume] in Serum or PlasmaOrdered By: Brook Huddleston on 09-03-2022 Iron binding capacity [Mass/Vol] 242 ug/dL 255-450 [facility] Iron saturation [Mass Fracti on] in Serum or PlasmaOrdered By: Brook Huddleston on 09-03-2022 Iron saturation [Mass fraction] 37.2 % 20-50 [facility] Lab Reportson 09-03-2022 Lab Reports [id number]#1.0 0CD:[address] [facility] Methylmalonic Acidon 023 Methylmalonic Acid 231 Normal 0-378 [facility] Comment on above: Result Comment: This test was developed and its performance characteristics determined by [employer]. It has not been cleared or approved by the Food and Drug Administration. Performed at: [facility] [employer] [id number] Hunting Guide: Aliya Curtis MD, Phone: [phone] Performed By: #### H [address], METH, EPO ####[facility] ,#### FE and TIBC, CONOR ####[facility] [id number] [place] [address] [facility] Operative Reporton Operative Report [id number]#1.0 0CD:[address] [facility] Serum or plasma erythropoiet in (EPO) measurement (units/volume)Ordered By: Brook Huddleston on 09-03-2022 Erythropoietin (EPO) Qn 409.2 mIU/mL 2.6-18.5 [facility] Comment on above: [employer] DxI 800 Immunoassay SystemValues obtained with different assay methods or kits cannotbe used interchangeably. Results cannot be interpreted asabsolute evidence of the presence or absence of malignantdisease.Performed at: [facility] [employer] [id number] Director: Melchor Agrawal PhD, Phone: [phone] Serum or plasma homocysteine measurement (moles/volume)Ordered By: Brook Huddleston on 09-03-2022 Homocysteine [Moles/Vol] 16.0 umol/L 0.0-19.2 [facility] Comment on above: Performed at: [facility] abcE[facility] CenterMkglhh[address] [place], [place] [id number] Director: Melchor Agrawal PhD, Phone: [phone] Serum or plasma methylmalona te measurement (moles/volume)Ordered By: Brook Huddleston on 09-03-2022 Methylmalonate [Moles/Vol] 231 nmol/L 0-378 [facility] Comment on above: This test was develo ped and its performance characteristicsdetermined by [facility]. It has not been cleared orapproved by the Food and Drug Administration.Performed at: [facility] [address] [id number] Director: Aliya Curtis MD, Phone: [phone] Ambulatory Visit Summaryon 0 09-01-2022 Ambulatory Visit Summary PATSY MILLS :1945 Visit Date:09/01/2022 Ambulatory Visit Instructions Your Diagnosis BPH with urinary obstruction Other obstructive and reflux uropathy Your Care Team Attending Physician - EFREN RICKS, Santi Almazan Primary Care Physician - KUMAR RICKS, HELEN This Is Your Medications List acyclovir (Zovirax 400 mg Tab) aspirin (aspirin 81 mg Chew Tab) atorvastatin (atorvastatin 20 mg Tab) bifidobacterium-lactob acillus (Probiotic + Colostrum) cholecalciferol (Vitamin D3 2000 intl units) famotidine (famotidine 20 mg Tab) insulin glargine (Lantus insulin) insulin lispro (Humalog) lenalidomide (Revlimid 5 mg oral capsule) metformin (metformin 500 mg Tab) oxybutynin (oxybutynin 5 mg ER Tab) potassium chloride (potassium chloride 20 mEq ER Tab) tamsulosin (tamsulosin 0.4 mg Cap) Procedures Performed TURP - Transurethral resection of prostate (08/27/2022), Transurethral insertion of prostatic urethral lift implant (05/05/2022), Cystoscopic removal of ureteric stent (08/20/2012), Cystoscopic ureteroneocystostomy with insertion 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 What to do next Scheduled Follow-Up Appointments 2022 9:15 AM EST With: Diego RICKS, Vesna Taylor Where: [facility] [place] Normal [facility] Nurse Consultation Noteon Nurse Consultation Note Reason for Visit Pt?s catheter has been removed in office today with no complications. They have been advised to drink plenty of fluids. Pt has been instructed to call the office in the event that they are not able to void in the next 4-6 hours, or go the ER. Advised Pt if they experience any severe bleeding, fever over 101 and/ or shaking chills to go to the ER. Assessment/Plan 1. BPH with urinary obstruction (N40.1: Benign prostatic hyperplasia with lower urinary tract symptoms) S/P TURP done 08/27/22. Other obstructive and reflux uropathy (N13.8: Other obstructive and reflux uropathy) Medications aspirin 81 mg Chew Tab, Chewed, Daily atorvastatin 20 mg Tab, 20 mg= 1 tab(s), Oral, Daily famotidine 20 mg Tab, 20 mg= 1 tab(s), Oral, Once a day (at bedtime) Humalog, 8 unit(s), SubCutaneous Lantus insulin, 25 unit(s), SubCutaneous, Once a day (at bedtime) metformin 500 mg Tab, 500 mg= 1 tab(s), Oral, BID oxybutynin 5 mg ER Tab, 5 mg= 1 tab(s), Oral, BID, 11 refills potassium chloride 20 mEq ER Tab, 20 mEq= 1 tab(s), Oral, Daily Probiotic + Colostrum, Oral, Daily Revlimid 5 mg oral capsule, 5 mg= 1 cap(s), Oral, Every other day tamsulosin 0.4 mg Cap, 0.4 mg= 1 cap(s), Oral, Daily, 5 refills Vitamin D3 2000 intl units, Oral, Daily Zovirax 400 mg Tab, 400 mg= 1 tab(s), Oral, BID Allergies Myrbetriq (Multiple open mouth wounds) gabapentin (Unknown, Rash) Normal [facility] Lab Reportson 08-30-2022 Lab Reports [id number]#1.0 0CD:[address] [facility] POINT OF CARE GLUCOSEon 08-17 Glucose [Mass/Vol] 250 mg/dL Critically high 74-106 T [facility] Comment on above: Performed By: #### P OCGLUC #### [facility] [address] [place], [place] [id number] Dr. Lydia Lebron Urineon 08-27-2022 Bacteria identified Cx Nom (U) Microbiology PROCEDURE: Urine Culture [R1] SOURCE: U Random BODY SITE: COLLECTED DATE/TIME: 08/25/2022 13:17 EST RECEIVED DATE/TIME: 08/25/2022 18:02 EST START DATE/TIME: 08/25/2022 18:02 EST FREE TEXT SOURCE: Diego RICKS, Vesna Cortez MD, Vesna Taylor FINAL REPORTS Final Report [] Verified Date/Time: 08/27/2022 07:15 EST 1,000 cfu/ml Mixed skin contaminants Performing Locations R1: This test was performed at: [facility], [address] [place] [address], [address] [place] [address], [facility] Comment on above: Performed By: #### 2 [id number] #### [facility] [address] [place] [address] Coding Summary.on 08-27-2022 Coding Summary. [id number] Gh 0bWw+PGhlYWQ+XA0OLBXiL 48wrGVpuD0JB6mAYN2LTXS ACUDKUS3MXM2ynXO6LHzuS 2VybiAv MfmvcUBhJM36QRl5WOX1gG mkGSgvkY7ewMMgM3r8YbKv RR97sX13IQyyMLXdFjL1Hv ZpbjsgbWFy A1fdKhLufADfPnq+PHRhYm xlIHdpZHRoPScxMDAlJyBz zFvmYC5xJu6oNVKyYZGwiT xhcHNlOiBj z4hqTEPrZLtnEQ9vwIhiS0 CdaKG7HRQas0b4Vd29aYK+ DBKfKZK3bRcxQXpym688Of Ekl6hpPFE7 iLBeQRwwEGB0D93yj6D6LP DsUZUnKBA1aKI7aO5slVha jhlbE1FqaKStUrP0YWI2jI YtkX0blWay asofxO5vPaw+K13IQY5YJI SQGJ7HEbh1I8EyLaemtWS+ IE38FIMaBG05bEXvrTYtf9 tlrCd8SuNz JHZmOEB9zZjbPJzfa7XrDH EpW36orFPsw6Q7YIVxoDin nCAwPsHyaCW5qE5jTXkxqu zol7stnoza Dvjka6xcmy20xB16Q79kYQ kqHDVpRIB6XYWiAWEmiHdj gj7ciT0oRr0+CBcyh9tso7 lseZe5XmLv SCFaevEypLraXLM4y0RoSl 67O5AfhOpns0TgQkm7td52 kHCdr8R0oYQ7QUshYGOozA 6zNFazAlV2 WAPxJpMgqQ11pPWsLCgwNh 0mrSkkpPedHA6jYJJtesmb OCUxnN5iDWNpgPVdvFotRW 4wNTBpbjtm j305OuIqVNR2DOJhiZWaO8 OstN9rAmFgNYNlASNeA3Nt mSNjCRctW398IOeiSvN9RO FxrgQjU0Oq MTMchGlqWfV0w6N0Dt0Jk5 LdexewMJQ8VZukAJGsJpRi EdKhPvP3J3QwOll5TMQfrB laLY3oI5Dv ZALirrkdhulrfTM9RFNvLO XrwR33lOIcEJgkQd1be9A3 m140UNGtFTPqkM91Tq1riT ogMTBwdCBU vS5makpvt3ituhacFaAdXV NgABu7FZy0KMUlvZqpBmKk MQU5YuS4XGY7jHGzyD5uwW efkypdnH7y Oyc+P36ngD7hVVG2APT8ob zlGHUoxtPnHD58CF49N5Ve PjwvdGFibGU+PGRpdiBzdH xpNG5rJzJs y9tox3NhXUptW5ErWJEaQN xlLkb1JTWtJTO9tTD8qB2r GTJePLzba6Z8dLM3D9Fsxx Lhuo9zj7er PFFuDVzbV49ppHQjj2I8HL ZwlBJ9IPQzfVotZcFkyP82 Oyc+YYHgzQout5VtIbhck1 zoy2nrtVc2 WqCoWOIjunGluJoePAT1c7 NpGt04A92fJXzzDEGsYBQq AXVzOTCyaZggfi0dhN0vWh 8+PGNvbCB3 lAE4rL0vZIGeIbA5PJslQ9 84HqFedPErDthnf2qhw2ap mNs5RhGgLCZfdmYvdNzuXH S2l9AlRu10 S29rSNljALSnIHTuEUAoSX KiiTlpfe2oaK5nBv2+PC9j l4pheh07bA63xOV+PHRkIH N2pZopIGgk DFJeaB9gMEdpMiQ9GFMmBl UdiP57gOTcXVebDf4xeUph pLaaFX5dBPMhixplz745Ye Hto1ezEBWq zNFtOAizLJJ3F97qs7S6SD ToGGHlLYP4bAH9nR0bsHqy bjogbGVmdDsgdmVydGljYW gcOTspL866 IHRvcDsnPlBhdGllbnQgTm FwWDt0U3UbIep4HCWgyOvj OO5hySCnVJrxKb0ejBdvvT ixXB9vLVHh ddvku595MfYzv7ptDJZbaW WyERthGUE8V90jd0X9IFYj NSVtQBG3yJF6aX3hvAunkj ogbGVmdDsg uaRvqHjbWBjiXDyuD391MS RvcDsnPkJpcnRoIERhdGU6 YU65MC72gMKdv7J3fIP5J9 BhZGRpbmct nyikvLJ8NMDbWDLbiT95Sp 7xiGodJj5bXJTdHQV1KSIn jZLwH3NvkR3gWeXfYDIyBC EnO6DrpFLj LQnxP768REctSmT1CLIlfh IrQ2UkRAMqjQfuWhG1e5H2 Kl3PV8Z8ZO28EE31nSLte4 Q8nEN4R9Bj LWWldccyhbeonHH5ODJkPO VloR59Vq5wxFrxWo1dWHXl PXK8WLFcgGXmE5QnbZ7fYz AjMDAwMDAw I5TovAOpSMutA606RMtfVo V3QRGruaOqA1NrGJDaoSic WcT2b9A2Ku0ZVBd2UM93VN 28vHAki8P9 pTE1J5CiWXWjuwlstnszhU B9TSVuQCGmnC50Bo5unEsb Tk7bWAKsVGF3FKKuzJHnC5 PyoK7rLgFm XHWfGFVtB8VbbWStVWrpX0 42NYesRiQ4MVWfzbArN7Sa SWSmyOoaHhV3i1N8Md1GEG NdJA32MZS9 aKN8BM85IL01Q2EeXilysC FibGU+PHRhYmxlIHdpZHRo VHwzUFMvGwDvyStfNX0uPq 9yZGVyLWNv qFfmtVWmIqNzv8vdLXUjII myQC9ubLztV2ExuEX8XFLz s6r4Yw30Y11hY2YcpWS+PG JcrKH8tYT2 kT8sAkJtRdF8KZayG944Ps RpnQCoTefeq1rzz6xxuJh6 VbQ8JRXgjqShpWziZIE3q7 OvIw31C92j IHdpZHRoPSIxNSUiIHZhbG ztxo6qpF3aFk6+PGNvbCB3 bCU0bO3uYlYqYkO1JCeiL9 49InRvcCIv Gbswv6mzg6xusPx8IzKhYT WincRmnUemFOG9c2KuGn15 L9LwbJlwz9MgXxg6rs30nN Mtl8R9rPZ8 E2NyKYJgnnoupIHaxNmdEM 0kVHQqzbcaTVRqgC4fOFVh D8o3WxHwFeK0KEseM6Rqja I7YVImdNFd MMmrAVW3N95lt5Q4SRBtFL QmLJQ2yBK5cO4aaUfuqwjd bGVmdDsgdmVydGljYWwtYW ynV553OQWb aHlyQZElwT5iAARvtMYavF boZM8lPWMonsazFp5LSCkX PvjbPY0NOXfLMAr7F7XvCc x9WRVzqBde WJ3nkFIyVHbnOq2iiCssqI ruMS1hJGOvqrfuQSRfkE6h QNEigGJfpLwrLT3aBQZwqq lsp214XdSl ZDA0PRMwbTHtO9OswM0nGy OgLXHsYBToM7CrdSSrONpm O088GTyyTcK5GXRgvtWuU0 FsLWFsaWdu BbM7o6D5Kl5dEv5kUW5kTC G3HW36NN21wCHzd1P2uZO1 P5FuVIHjzevbxdbfaMT3FU VvPATaeM18 xMIjODmiXq8pe7O6d693QB NeQUUduW07Vt1kuOwxAGJo kXCRrO0cqduun6qhtnhfBi AwMDAwMDt0 WEf1VAIoaNgaCbRxHPP1Um L9JSY5oWLqsY8cnCujgczn pU5fGya+RngvMGAvtcO9P1 UdQgl6WCMw eTlaWA0ivWDmJPnmDn1soN gmfQgvQH7dTZVrqoslQKOu hA6mQQOfdLVydAraUV6sNM Iehohln725 HkJcOCD5NYYsnSArQ2DrbI 6wBnTzCPQsYSGeT7PxsGWa AHkbQ639OQrpDwZ4NUJhoi GtQ2IvQSSj fBkiQgP9g6A6Qt8IMTggNI 28VL47dMMlh9G4vZK6P3Gh SZQjkmculbjdjJW7JLQjIN FlrW29oVTf BNlsKz8io4Y1u005OAGvVN RyoB49Qp3dzJfhLXVakKLK yT1whsuap6ztqwmwBkOyCS TaEJx9WRj7 JQHktMosZnDfPDW6EcV2YN Z7oRTdaG9vlChgwsnkpP6r Oyc+UPLyAWHjz2Tls0ZjFK 21AD25R6Gd PjwvdGFibGU+PHRhYmxlIH dpZHRoPScxMDAlJyBzdHls MO8tTt8eZPBqNKBtzHoimT FiRpCkp0ab NVUkKHmgKC0xlDryU1AixI C8OKWjd0k1Cr07T19bY7Hi dXA+GRRhdNS0qHW3bB9aFa FuYnB0MFsn U227EiNhaJYjTyjwv7mzk5 qfmFy7MaQdHMHxpyZyfLak IWI0a3MfSz15L42uNBuwPV RoPSIyMCUi HXKyoPoncq2vgA5pPp9+PG ZutDH5vQG0dU8uKdZsZtH5 JRgeH959EtTymUFtNeddH4 6gF1MefPM+ YPVnIxm6LBEbrCmoFC9dzM XzKZimPt4dSFC7XpXdKrSh BJkvX1TdHNTgbbqyzpncnR U5ZSFeUQSm fS98Ch0dbMwgBb3uOBDoAE V7PRSekMXcF9MpoQ7iNnWb ZYGtNRAcA7NhcHTjDFevE5 40TFksKzR5 DUGwsvLfR6CgMAEgoHimCc K2w7J8Cy6PgEfpjJOaIX7c YiExCHm0I2QcJgp8QDJaxS cnTS5zhKWr UPkxXq9lzMbzfZcnPE4wSA Gsbyiux281HkMlm0czIAEp rNRcCZhyFVU9W61rx5K5VY MwMDAwMDA7 mRY5cR5luElpgzbjnFBeiW vptqAwxQcbIRfjUAxxT473 GILpjJypKfXILri0O2LcTs m2TPHjwDfe BT2ceMZfPQhwXt5osTdotL laNV1uPPNqpcsil890OfVs y5thDMXlmHRrVZsjRNJ7W6 9fq8J4LIOy LDLcADR3dAJ0yV1hjVuonz ogbGVmdDsgdmVydGljYWwt MRrcO681GQVlvOrwOf6GNu d6S8ZnOyn9 IMImvAqsYV8epJKiNUdfMd 9yqWuiiLntVP6kVUYypvns j459QjEzs7auABErcYPxYK ueFQZ2F08t k2K8QIUhVTXnMFZ0kDV9yV 1hbGlnbjogbGVmdDsgdmVy tSftIHeiHYiuW359FKIauV snPlBheWVy OjwvdGQ+DP47ug63F3IuIr ipUaz3PWMrRCK7fMF6jM9k ZVDxXUcxz0S8wBM8O4Fndr Dzmc7nx6vq YXBz (more content not included)... Normal [facility] POINT OF CARE GLUCOSEon 08-17 Glucose [Mass/Vol] 283 mg/dL Critically high 74-106 [facility] Comment on above: Performed By: #### P TT, PT #### [facility] [address] [place] [address] Dr. Lydia Merritt Glucose [Mass/Vol] 207 mg/dL Critically high 74-106 [facility] Comment on above: Performed By: #### P TT, PT #### [facility] [address] [address] [address] Lydia Merritt PROF CHEM 8 (BAS METB)on Anion gap [Moles/Vol] 15.8 mmol/L Normal Th [facility] Comment on above: Performed By: #### P TT, PT #### [facility] [address] [address] [address] Lydia Merritt Calcium [Mass/Vol] 8.7 mg/dL Normal 8.5-10.1 [facility] Comment on above: Performed By: #### P TT, PT #### [facility] [address] [address] [address] Lydia Merritt Chloride [Moles/Vol] 107 mmol/L Normal 98-107 [facility] Comment on above: Performed By: #### P TT, PT #### [facility] [address] [place] [address] Dr. Lydia Merritt CO2 [Moles/Vol] 22.4 mmol/L Normal 21.0-32.0 [facility] Comment on above: Performed By: #### P TT, PT #### [facility] [address] [address] [address] Lydia Merritt Creatinine [Mass/Vol] 1.82 mg/dL Critically high 0.70-1.30 [facility] Comment on above: Performed By: #### P TT, PT #### [facility] [address] [address] [address] Lydia Merritt EGFR-AF CAMBODIAN 44 mL/min/1.73m2 Critically low >=60 [facility] Comment on above: Performed By: #### P TT, PT #### [facility] [address] [address] [address] Lydia Merritt EGFR-NON AF CAMBODIAN 36 mL/min/1.73m2 Critically low >=60 [facility] Comment on above: Performed By: #### P TT, PT #### [facility] [address] [address] [address] Lydia Merritt Glucose [Mass/Vol] 128 mg/dL Critically high 74-106 [facility] Comment on above: Performed By: #### P TT, PT #### [facility] [address] [address] [address] Lydia Merritt Potassium [Moles/Vol] 5.2 mmol/L Critically high 3.5-5.1 [facility] Comment on above: Performed By: #### P TT, PT #### [facility] [address] [address] [address] Lydia Merritt Sodium [Moles/Vol] 140 mmol/L Normal 136-145 [facility] Comment on above: Performed By: #### P TT, PT #### [facility] [address] [address] [address] Lydia Merritt Urea nitrogen [Mass/Vol] 25.0 mg/dL Critically high 7.0-18.0 [facility] Comment on above: Performed By: #### P TT, PT #### [facility] [address] [address] [address] Lydia Merritt Urea nitrogen/Creatinine [Mass ratio] 13.7 mg/mg Normal [facility] Comment on above: Performed By: #### P TT, PT #### [facility] [address] [address] [address] Lydia Merritt Ambulatory Visit Summaryon 0 08-25-2022 Ambulatory Visit Summary PATSY MILLS :1945 Visit Date:08/25/2022 Ambulatory Visit Instructions Your Diagnosis UTI (urinary tract infection) Tests Performed Urnls Dip Stick Auto w/o Microscopy POC [id number] Your Care Team Attending Physician - EFREN RICKS, Santi Almazan Primary Care Physician - KUMAR RICKS, HELEN This Is Your Medications List acyclovir (Zovirax 400 mg Tab) aspirin (aspirin 81 mg Chew Tab) atorvastatin (atorvastatin 20 mg Tab) bifidobacterium-lactob acillus (Probiotic + Colostrum) cholecalciferol (Vitamin D3 2000 intl units) famotidine (famotidine 20 mg Tab) insulin glargine (Lantus insulin) insulin lispro (Humalog) lenalidomide (Revlimid 5 mg oral capsule) metformin (metformin 500 mg Tab) oxybutynin (oxybutynin 5 mg ER Tab) potassium chloride (potassium chloride 20 mEq ER Tab) tamsulosin (tamsulosin 0.4 mg Cap) Procedures Performed Transurethral insertion of prostatic urethral lift implant (05/05/2022), Cystoscopic removal of ureteric stent (08/20/2012), Cystoscopic ureteroneocystostomy with insertion 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 Medications What How Much When Instructions Unchanged acyclovir (Zovirax 400 mg Tab) 1 Tablets By Mouth 2 times a day Unchanged aspirin (aspirin 81 mg Chew Tab) Chewed Every day Unchanged atorvastatin (atorvastatin 20 mg Tab) 1 Tablets By Mouth Every day Unchanged bifidobacterium-lactob acillus (Probiotic + Colostrum) By Mouth Every day Unchanged cholecalciferol (Vitamin D3 2000 intl units) By Mouth Every day Unchanged famotidine (famotidine 20 mg Tab) 1 Tablets By Mouth Once a day (at bedtime) Unchanged insulin glargine (Lantus insulin) 25 Units Subcutaneous Once a day (at bedtime) Unchanged insulin lispro (Humalog) 8 Units Subcutaneous Unchanged lenalidomide (Revlimid 5 mg oral capsule) 1 Capsules By Mouth Every other day Unchanged metformin (metformin 500 mg Tab) 1 Tablets By Mouth 2 times a day Unchanged oxybutynin (oxybutynin 5 mg ER Tab) 1 Tablets By Mouth Every day Unchanged potassium chloride (potassium chloride 20 mEq ER Tab) 1 Tablets By Mouth Every day Unchanged tamsulosin (tamsulosin 0.4 mg Cap) 1 Capsules By Mouth Every day Test Results Urnls Dip Stick Auto w/o Microscopy POC [id number] (08/25/2022) Bilirubin Urine Dipstick - Negative Blood Urine Dipstick - 2+ Moderate Glucose Urine Dipstick - Negative Ketones Urine Dipstick - Negative Leukocytes Urine Dipstick - 3+ Large Nitrite Urine Dipstick - Negative Protein Urine Dipstick - 2+ (100 mg/dl) Specific [place] Urine Dipstick - 1.020 Urine Appearance Urine Dipstick - Cloudy Urine Color Urine Dipstick - Yellow Urobilinogen Urine Dipstick - Normal 0.2-1 EU/dl pH Urine Dipstick - 6.5 Allergies Myrbetriq (Multiple open mouth wounds) gabapentin (Unknown, Rash) Problems Ongoing - Any problem that you are currently receiving treatment for. Asymptomatic microscopic hematuria BPH with urinary obstruction Diabetes Elevated cholesterol Family history of prostate cancer Glycosuria History of kidney stones HTN (hypertension) Kidney stones Microhematuria Nocturia OAB (overactive bladder) Rheumatoid arthritis UTI (urinary tract infection) Weak urine stream Normal [facility] SARS-[facility]2 (COVID-19) RNA ERIN+probe Ql (Unsp spec) Not detected Normal NOT DETECTED [facility] Comment on above: Result Comment: This test is not yet approved or cleared by the [place] FDA. When there are no FDA-approved or cleared tests available, and other criteria are met, FDA can make tests available under an emergency access mechanism called an Emergency Use Authorization (EUA). The EUA for this test is supported by the Defense Attorney of Health and Human Service's (HHS's) declaration that circumstances exist to justify the emergency use of in vitro diagnostics for the detection and/or diagnosis of the virus that causes COVID-19. This EUA will remain in effect (meaning this test can be used) for the duration of the COVID-19 declaration justifying emergency of IVDs, unless it is terminated or revoked by FDA (after which the test may no longer be used). When diagnostic testing is negative, the possibility of a false negative should be considered in the context of a patient's recent exposures and the presence of clinical signs and symptoms consistent with SARS-CoV-2. Performed By: #### C [facility] #### [facility] [address] [place] [address] Dr. Lydia Merritt Coding Summary.on 08-21-2022 Coding Summary. CD:[id number] Gh 0bWw+PGhlYWQ+TI1IOYKzB 07igCBfqP0UH1wGTM6YOUA LGCXBTR5YET1zoTR6XHllS 2VybiAv IusqwDPkSE84EKe1MZR3xN ppYHbviO8dfHTfA0g2VnXx RA22wS10KJggFOYdTcN5Bw ZpbjsgbWFy O1ykZgHfeGAtXli+PHRhYm xlIHdpZHRoPScxMDAlJyBz iOuiTW5gTz9aCJMeWDRvaH xhcHNlOiBj b5xzFBLqBJjcJO2mwQccC2 EdrHP4AEGte4h8Pf55iJW+ CLNtCBY1cIbhJQeog087Pe Fev2zcDVX5 tKWkGDewQRH4D94yx7T0LA DqRKFkPZU9uEC3wI6ofKix gyhgD0OsxBKtCaK0TUM2uO LtqE6mmKyo fffbvA0kNnp+G77DRE7FVS OGKE7PYyg5C0JgOkiwuMQ+ CV23PXPaHZ37fPExyWOnh8 ebhPq0TgFd VFCxKOH8rUxdQZpjy2SyON DsT90wxOXpq0V7TNChsAgb qXIeCeJasYH3lK8cNCatgv hmh8mifpdg Zszla9tfvb73mT95S45gBW xgMSRoVSS0ESDdJQMyqBox dh4ilL7iVe6+SBtjw6kuf2 jsfWy3PvBg GORnllIgmFjoVZG1z3HyRw 25L5IgoKujl8BzOio9dk01 vUMgb6H0pKG1LUwtWGQmtL 0hGIczVkG3 QMIxDsZkpY48kLIxYDprAh 7ulKiahLyjZJ5tGXSlunqt UQNmfA6dEHIcfRMcfBejEE 4wNTBpbjtm j903EgVwLJG3XDCbeANyA8 CgjL3zPsAzMKOgWZTlP3Ww oNGjFEhrW983IGvqOdF2KS HcepEmM9At DUPtkYbnEiU7l8S3Xb2Lk8 FmkheiHAK9KBqyQZMkZuT3 RnRxYuN9M3EdAlx3FZMalZ diWM9lP3Ni KQUooicwjquunMV7UYBkYZ GohO16qAUaHVvbRx5tq2F7 w712EZBoKNKvwD19Og6vmI ogMTBwdCBU dZ0jaxogx8pwvhofYvFwRK AnPCd8ZEe8MXXqxEapMiLi ELR0BsX2BED9qFXgbA9nkO rlufbeyG1a Oyc+J64sgQ3aGPP9QLN5up yeDJHqtiHiGG01JO98I6Vk PjwvdGFibGU+PGRpdiBzdH qkJC2kDeDd d0qan9RcWEsvQ9SmHNNkNO gmZxb4SYBoTBT1oZJ5bE5z HPQrCLzqy0T6lYW9O9Ieyl Kyru0fq4sn OTCvJGqvX58lvUGwh9T1FC IhiVZ5QPUnwYinIoLwqH08 Oyc+XIZcxQbsk3AwBtqry6 bpa0okhFr4 PgJbISBwlhIpcDvsIVS6j7 NxWd65P85zMCqxHTIbFASn FLLfIGKqmCnkoa8hjK7xGl 8+PGNvbCB3 yLJ6xO8zDAZiQkN7VQizK9 08WoKyiGDtMftfe9skm0jr iWu3KkJcJORodlVwsXzmNW K8g0TbZh04 N84aQCyyCFOfIMYvNFStKV GgbFutyn8dcO0rMi7+PC9j r9hxjz36dZ57yFG+PHRkIH B7yLgyQOml LJBplR2xXAlxLxD3FJToXb KqtI97kJQsBFhzZl2ppPcr bIkaMJ9iNSGdgzxws059Cj Cjb5qaBKBk rBPnUFvgQNP3Z51mk7P8AS GyQAXeJRF2yGW4jV0nkCja bjogbGVmdDsgdmVydGljYW gbLWcbV776 IHRvcDsnPlBhdGllbnQgTm HpTNs9C2OiVfu8JPCzjRvg HT1fmYRwYFtxFr1lyEbspD zyIN0eDFGd ofsgx570XrUjd9jvDCIzlV GuSEgdKGA2Q49dh3J4KEZk TXFnBFU3xLE2qY9kqSqkgt ogbGVmdDsg qtWvqAdqASodNZxyI437NW RvcDsnPkJpcnRoIERhdGU6 LM75ZM33mQGpe7Q8wOU7Q2 BhZGRpbmct svgurDK1REWrGKUanO71Fa 5sdUbtMz7mBTOwGNB3VGFq vFRyL7XlmB8gRaKrNZFlOW XzF0RipORh JFdjV234ZZusFnM2BNNtyy PcW5YjHGTjbZwkOsJ6m0Y5 Zl3LD2Q2QN99VP47oENxj6 F2tPQ2N9Xk VFPvimmsbrelmDL0LFVeHY UtyU81Hl0hgPoiVe6xXOVl AID2CCPawNVsP8OfmA6dKj AjMDAwMDAw V8GlpTCuCVtkH948RJzgFe D2YJXwznCvH4IfAKLyoTzb SnG3r1R4Jg1HTRj8AN75TE 89zUTbp5I1 uPE0X2YiAPCucnztuvxceD V8PGYeDZQkwT51Om8fiSxb Mc7aYNQbNSH9CBIjjYHrT9 GbqH5zExYd PUFwFVEdK8JldWZuEWgiO7 90CHkbEwO8SZEsxnTfB0Gi TDYtjApyQdI9t3G1Dz2LBG HtMY57ICV0 mSJ1NB12SA87R6RfIjqdbV FibGU+PHRhYmxlIHdpZHRo LIbxUGZyIcPfxGsuOF0yWr 9yZGVyLWNv vHwsfKQdUrSnc5xrAIEmBG teBD1caBfdK8ErwOL3IIYw q2p1Ts52G50jJ9MctPS+PG LpeTP2vQM6 nB1xSaVaHtK4WRbeN322Wy GobRKfZwamh3tyb2dnoPr5 HrZ3COXgcpRgbAjcVZT7v7 VcGx29L75g IHdpZHRoPSIxNSUiIHZhbG onxj3ubS7cCy7+PGNvbCB3 eJT2aN9qFqMlVeP0KYqsG3 49InRvcCIv Utwgf0ffr6tokHt8GjVxRC EhtzSvsXlpJQK6l6DzFn75 N0VxgKvas4QsMki3zz76oY Ojl2Z5oSO4 I5IqEZPvbwexmUYdtRejVL 4tIMNnnoaxDYWfnI8jUAHp V4t7YdVbYuI0LLoyK7Qxgp P8XTDxaGKg YDpjZHG4Y13zr7B8EOTyYA PiEXY2zWU9pJ2eeDtyllwf bGVmdDsgdmVydGljYWwtYW okS273FJUc bMkdVPCmqH0ePLXxxLTmmI hgJB6cRZDgvxmgOs5GTLxX MuloFF3NPPwTHEz2V4ZeYz z3TBUdgWrn XF0msKZxKNthUl0noRoscD knSD3eOSXctiryFBEffJ4k ZPKydIDqkBahDU5xRUHuqg rvf128NuGi ZZG5RAKpcDAdY7YcxZ9kJq YfEEOwWOSmR6ZznQUbILpy U549YSyqVuX5FGRqgmDrV3 FsLWFsaWdu LpS4f8H1Xe9oTg6xMK3qQT P8NN66MI69kXEgk0I4tYL7 O9NqKHDpjmblvmuodQO4YV XnWOVsbO86 kRVqIYrgXm8rx9F2n362HL DuUWEopF09Xp3xgEnwWWCq qBTPhO0itllju2cigocfZj AwMDAwMDt0 WIt1FVXxvQxpApFwKLP2Fj V7UGF8dXIyiG4fiZathpgf dL3tAeg+GwtbDERmvbK0Z1 DoZge4DTXw yWjlMV6rtMSlPWucRa0khK gkzSpvKI8cVXKrftfaICCh oC9yTTDzjNBicRgsKQ2bGM Jekjyco956 YkYpKSM6YLZnmBSnF2MinU 3iOlUkJDRrOBVbH2ImuDAj NBqmN546CUhcDxG9BHRtip ZrQ5EwBHQv aZzzIvO2a7Q4Cr3OSEwjZP 66NX61oIQtb4C9iAU1C1Ah SCOqbcrntvxctTF7JJGnEI YltE66iADl CLegKy7ir2C3e329CRKmSR VitX04Tx3caOafRNBrwIFC uN9xhjclh8rsshwzNmNpGZ MjFEo9COw9 LFZdrOwsEgIlFUS6UyE3ZR M0aOZosK1wiMvnfaujfM2m Oyc+OIMvXUHyj7Pkr6KxNW 42JP70Z2Ll PjwvdGFibGU+PHRhYmxlIH dpZHRoPScxMDAlJyBzdHls QB4tYu3tNDNqTGRooCihlR VqXgCtv2fp VTHeJYrbTI5quFlzF8DndZ W4VWFhs9c8Sn20J03sC5Cm dXA+AWWacXW3hAO9yS4eMy FrSpD5AChp K250QlEucHXlCvaeu7xck0 hbtLq2WdNsWUOjclSsrWzq YYE4u0UsZv67P58kXItvRP RoPSIyMCUi ODDsxEypdm1paV8jKs3+PG LuqII2qGS3qV8eQmAaFdX4 GXaxB182KaGcpEUxTixaQ2 3rX1OvaYK+ ZTMuDww5GRLmeBefJO6sbT MjDXjzLd2kXBU9DwXfCuVd ZZppZ4IkTAGcvhrjdszumD S3WFJqCIHu hW98Be1hzJdwJe3nUAUcRM H5IHMonRHfH5XyvY4vLtOd RPTbYIXeE4KezXFkNNenN8 91JQfgWwL9 GUNmivIsH1PfHJZxyVghHk E2y5F3Kq4WiVmgxPXpRL6y OvKgXGp0H7WiQzp9BTTxuQ niBM0pyQOe GUzdUz5nxZkhpSkzPA0xXD Pynsnww392ZrLan8kmEPBf eIGmEVzzZRQ8T29od6N8NS MwMDAwMDA7 rNN6tG1tkJhssumyyJArmD gpyiIhmSbwUDzeJThfQ127 KCEspIzhPwGPUer1N9DdQd i5HBOpiFcs EK0okGCcASzpUi9ysPqyzN skIP2mMHOalldea928GuId z9qrHNTwiOLdMQkeLDD6Y6 4no5X1BDCp TPRrKVI2aNO3aY2apXttow ogbGVmdDsgdmVydGljYWwt HAvsM386IMPyeNtyUb0MLm n2D6AxBmv2 DZVbhSzhIV1zlBJuONmaXb 0xvTosmCwvAG8jHMOmydfh s652OuFml9vfYCDeeSCzVJ dwYCA9G85t g2V3TDNtYCSoJTR4eUP8nX 1hbGlnbjogbGVmdDsgdmVy cDryRNrpQWyuK471TAOsiV snPlBheWVy OjwvdGQ+TG84fg50X0DrWx qlPgd4UICiOFT2sDV5dS8l XXYvFCbxc8I8kSV3S3Rzip Wdoh8io3vq YXBz (more content not included)... Normal [facility] Albumin [Mass/volume] in Ser um or PlasmaOrdered By: Rosie Chew on 08-20-2022 Albumin [Mass/Vol] 3.4 g/dL 3.2-5.5 [facility] Albumin [Mass/Vol] 3.3 g/dL 2.9-4.4 [facility] Albumin/Protein.total in 24 hour Urine by ElectrophoresisOrdered By: Rosie Chew on 08-20-2022 Albumin Elph (24H U) [Mass fraction] 47.1 % . [facility] Anisocytosis LM Ql (Bld)Orde red By: Rosie Chew on 08-20-2022 Anisocytosis Ql (Bld) Marked [facility] Basophils Auto (Bld) [#/Vol] Ordered By: Rosie Chew on 08-20-2022 Basophils (Bld) [#/Vol] 0.0 10*3/uL 0.0-0.2 [facility] Basophils/100 WBC Auto (Bld) Ordered By: Rosie Chew on 08-20-2022 Basophils/100 WBC (Bld) 0.3 % . [facility] Creatinine and Glomerular fi ltration rate.predicted panel (S/P/Bld)Ordered By: Rosie Chew on 08-20-2022 Creatinine [Mass/Vol] 2.30 mg/dL 0.64-1.27 [facility] Eosinophils Auto (Bld) [#/Vo l]Ordered By: Rosie Chew on 08-20-2022 Eosinophils (Bld) [#/Vol] 0.2 10*3/uL 0.0-0.45 [facility] Eosinophils/100 WBC Auto (Bl d)Ordered By: Rosie Chew on 08-20-2022 Eosinophils/100 WBC (Bld) 3.1 % . [facility] Erythrocyte distribution wid th Auto (RBC) [Ratio]Ordered By: Rosie Chew on 08-20-2022 Erythrocyte distribution width (RBC) [Ratio] 20.1 % 12.0-14.8 [facility] Estimated glomerular filtrat ion rate (GFR) non- AmericanOrdered By: Rosie Chew on 08-20-2022 GFR/1.73 sq M.predicted among non-blacks MDRD (S/P/Bld) [Vol rate/Area] 28 mL/Min [facility] Gamma globulin/Protein.total in 24 hour Urine by ElectrophoresisOrdered By: Rosie Chew on 08-20-2022 Gamma globulin Elph (24H U) [Mass fraction] 19.8 % . [facility] Globulin Calc (S) [Mass/Vol] Ordered By: Rosie Chew on 08-20-2022 Globulin (S) [Mass/Vol] 2.6 g/dL [facility] Hematocrit Auto (Bld) [Volum e fraction]Ordered By: Rosie Chew on 08-20-2022 Hematocrit (Bld) [Volume fraction] 23.9 % 38.8-50.0 [facility] Hemoglobin [Mass/volume] in BloodOrdered By: Rosie Chew on 08-20-2022 Hemoglobin (Bld) [Mass/Vol] 8.1 g/dL 13.0-17.0 [facility] IgA [Mass/volume] in Serum o r PlasmaOrdered By: Rosie Chew on 08-20-2022 IgA [Mass/Vol] 190 mg/dL 61-437 [facility] IgG [Mass/volume] in Serum o r PlasmaOrdered By: Rosie Chew on 08-20-2022 IgG [Mass/Vol] 996 mg/dL 603-1613 [facility] IgM [Mass/volume] in Serum o r PlasmaOrdered By: Rosie Chew on 08-20-2022 IgM [Mass/Vol] 37 mg/dL 15-143 [facility] Comment on above: Performed at: [facility] [address] [id number] Director: Melchor Agrawal PhD, Phone: [phone] Immunofixation for UrineOrde red By: Rosie Chew on 08-20-2022 Interpretation Immunofixation (U) [Interp] Comment: . [facility] Comment on above: Presence of monoclon al protein is unclear at this time. Suggestrepeat in 3 to 6 months if clinically indicated.Performed at: [facility] [address] [place] [address] [place], [place] [id number] Director: Melchor Agrawal PhD, Phone: [phone] Immunoglobulin light chains. kappa.free [Mass/volume] in SerumOrdered By: Rosie Chew on 08-20-2022 Immunoglobulin light chains.kappa.free (S) [Mass/Vol] 42.0 mg/L 3.3-19.4 [facility] Immunoglobulin light chains. kappa.free/Immunoglobulin light chains.lambda.free [MassOrdered By: Rosie Chew on 08-20-2022 Immunoglobulin light chains.kappa.free/Immu noglobulin light chains.lambda.free (S) [Mass ratio] 1.74 0.26-1.65 [facility] Comment on above: Performed at: [facility] [id number] Director: Melchor Agrawal PhD, Phone: [phone] Immunoglobulin light chains. lambda.free [Mass/volume] in Serum or PlasmaOrdered By: Rosie Chew on 08-20-2022 Immunoglobulin light chains.lambda.free [Mass/Vol] 24.1 mg/L 5.7-26.3 [facility] Lactate dehydrogenase measur ement (enzymatic activity/volume)Ordered By: Rosie Chew on 08-20-2022 LDH (Unsp spec) [Catalytic activity/Vol] 123 U/L 45-190 [facility] Leukocytes [#/volume] correc lizbet for nucleated erythrocytes in Blood by Automated counOrdered By: Rosie Chew on 08-20-2022 WBC corrected for nucl RBC Auto (Bld) [#/Vol] 5.9 10*3/uL 4.1-10.5 [facility] Lymphocytes Auto (Bld) [#/Vo l]Ordered By: Rosie Chew on 08-20-2022 Lymphocytes (Bld) [#/Vol] 1.2 10*3/uL 1.00-4.8 [facility] Lymphocytes/100 WBC Auto (Bl d)Ordered By: Rosie Chew on 08-20-2022 Lymphocytes/100 WBC (Bld) 20.5 % . [facility] MCH Auto (RBC) [Entitic mass ]Ordered By: Rosie Chew on 08-20-2022 MCH (RBC) [Entitic mass] 38.3 pg 27.5-35.2 [facility] MCHC Auto (RBC) [Mass/Vol]Or dered By: Rosie Chew on 08-20-2022 MCHC (RBC) [Mass/Vol] 33.7 g/dL 32.5-35.6 [facility] MCV Auto (RBC) [Entitic vol] Ordered By: Rosie Chew on 08-20-2022 MCV (RBC) [Entitic vol] 113.6 fL 83.5-101 [facility] Macrocytes LM Ql (Bld)Ordere d By: Rosie Chew on 08-20-2022 Macrocytes Ql (Bld) Moderate [facility] Monocytes Auto (Bld) [#/Vol] Ordered By: Rosie Chew on 08-20-2022 Monocytes (Bld) [#/Vol] 0.4 10*3/uL 0.0-0.8 [facility] Monocytes/100 WBC Auto (Bld) Ordered By: Rosie Chew on 08-20-2022 Monocytes/100 WBC (Bld) 6.9 % . [facility] Neutrophils Auto (Bld) [#/Vo l]Ordered By: Rosie Chew on 08-20-2022 Neutrophils (Bld) [#/Vol] 4.1 10*3/uL 1.8-7.7 [facility] Neutrophils/100 WBC Auto (Bl d)Ordered By: Rosie Chew on 08-20-2022 Neutrophils/100 WBC (Bld) 69.2 % . [facility] No Panel InformationOrdered By: Rosie Chew on 08-20-2022 Urine Random Prot Electrophor Note See comment . [facility] Comment on above: Protein electrophore sis scan will follow via computer,mail, or monument letterer delivery.Performed at: [address] [id number] Director: Melchor Agrawal PhD, Phone: [phone] Estimated GFR () 34 mL/Min [facility] Comment on above: GFR estimated refere nce range: According to KDOQI guidelines, <60 ml/min/1.73m2 is sufficient to diagnose a patient with chronic kidney disease. Pharmacy Creatinine Clearance (Chem 30.39 [facility] Protein Electrophoresis M-Anselmo Not observed g/dL Not Observed [facility] Protein Electrophoresis Note See comment . [facility] Comment on above: Protein electrophore sis scan will follow via computer,mail, or monument letterer delivery.Performed at: [facility] [id number] Director: Melchor Agrawal PhD, Phone: [phone] Nucleated erythrocytes [Pres ence] in Blood by Automated countOrdered By: Rosie Chew on 08-20-2022 Nucleated RBC Auto Ql (Bld) 0.1 /100{WBC} 0-0.5 [facility] Platelet adequacy [Presence] in Blood by Light microscopyOrdered By: Rosie Chew on 08-20-2022 Platelets LM Ql (Bld) Decreased Normal Fir [facility] Platelet mean volume Auto (B ld) [Entitic vol]Ordered By: Rosie Chew on 08-20-2022 Platelet mean volume (Bld) [Entitic vol] 8.7 fL 6.6-10.1 [facility] Platelet morphology finding [Identifier] in BloodOrdered By: Rosie Chew on 08-20-2022 Platelet morphology finding Nom (Bld) Normal Normal [facility] Platelets Auto (Bld) [#/Vol] Ordered By: Rosie Chew on 08-20-2022 Platelets (Bld) [#/Vol] 101 10*3/uL 150-450 [facility] Poikilocytosis [Presence] in Blood by Light microscopyOrdered By: Rosie Chew on 08-20-2022 Poikilocytosis LM Ql (Bld) Moderate [facility] Polychromasia [Presence] in Blood by Light microscopyOrdered By: Rosie Chew on 08-20-2022 Polychromasia LM Ql (Bld) Slight [facility] Protein [Mass/volume] in Ser um or PlasmaOrdered By: Rosie Chew on 08-20-2022 Protein [Mass/Vol] 6.0 g/dL 6.1-7.9 [facility] Protein [Mass/Vol] 6.4 g/dL 6.0-8.5 [facility] Protein [Mass/volume] in Uri neOrdered By: Rosie Chew on 08-20-2022 Protein (U) [Mass/Vol] 49.4 mg/dL Not [facility]ab. [facility] Protein.monoclonal/Protein.t otal in 24 hour Urine by ElectrophoresisOrdered By: Rosie Chew on 08-20-2022 Protein.monoclonal Elph (24H U) [Mass fraction] Comment: % Not Observed [facility] Comment on above: UPE shows an asymmet rical gamma. RBC Auto (Bld) [#/Vol]Ordere d By: Rosie Chew on 08-20-2022 RBC (Bld) [#/Vol] 2.11 10*6/uL 3.90-5.60 [facility] RBC morphologyOrdered By: Doretha Chew on 08-20-2022 RBC morphology finding Nom (Bld) N/A [facility] Serum globulin measurement ( mass/volume)Ordered By: Rosie Chew on 08-20-2022 Globulin (S) [Mass/Vol] 3.1 g/dL 2.2-3.9 [facility] Serum or plasma alanine etienne otransferase measurement without P-5'-P (enzymatic activiOrdered By: Rosie Chew on 08-20-2022 ALT No additional P-5'-P [Catalytic activity/Vol] 18 U/L 10-60 [facility] Serum or plasma albumin/glob ulin mass ratioOrdered By: Rosie Chew on 08-20-2022 Albumin/Globulin [Mass ratio] 1.3 {ratio} [facility] Albumin/Globulin [Mass ratio] 1.1 {ratio} 0.7-1.7 [facility] Serum or plasma alkaline tammy sphatase measurement (enzymatic activity/volume)Ordered By: Rosie Chew on 08-20-2022 ALP [Catalytic activity/Vol] 93 U/L 32-92 [facility] Serum or plasma alpha 1 glob ulin measurement by electrophoresis (mass/volume)Ordered By: Rosie Chew on 08-20-2022 Alpha 1 globulin Elph [Mass/Vol] 0.3 g/dL 0.0-0.4 [facility] Serum or plasma alpha 2 glob ulin measurement by electrophoresis (mass/volume)Ordered By: Rosie Chew on 08-20-2022 Alpha 2 globulin Elph [Mass/Vol] 0.9 g/dL 0.4-1.0 [facility] Serum or plasma anion gap de terminationOrdered By: Rosie Chew on 08-20-2022 Anion gap [Moles/Vol] 12.7 mmol/L 6.0-15.0 [facility] Serum or plasma aspartate am inotransferase measurement (enzymatic activity/volume)Ordered By: Rosie Chew on 08-20-2022 AST [Catalytic activity/Vol] 19 U/L 10-42 [facility] Serum or plasma beta globuli n measurement by electrophoresis (mass/volume)Ordered By: Rosie Chew on 08-20-2022 Beta globulin Elph [Mass/Vol] 0.9 g/dL 0.7-1.3 [facility] Serum or plasma calcium reese urement (mass/volume)Ordered By: Rosie Chew on 08-20-2022 Calcium [Mass/Vol] 9.1 mg/dL 8.2-10.2 [facility] Serum or plasma chloride gurdeep surement (moles/volume)Ordered By: Rosie Chew on 08-20-2022 Chloride [Moles/Vol] 105 mmol/L 95-114 [facility] Serum or plasma gamma globul in measurement by electrophoresis (mass/volume)Ordered By: Rosie Chew on 08-20-2022 Gamma globulin Elph [Mass/Vol] 0.9 g/dL 0.4-1.8 [facility] Serum or plasma glucose reese urement (mass/volume)Ordered By: Rosie Chew on 08-20-2022 Glucose [Mass/Vol] 156 mg/dL 70-100 [facility] Comment on above: ADA recommended refe rence rangeRandom Glucose Reference Range is dependent on time and content of last meal. Glucose of more than 200 mg/dL in a nonstressed, ambulatory subject supports the diagnosis of Diabetes Mellitus. Serum or plasma potassium me asurement (moles/volume)Ordered By: Rosie Chew on 08-20-2022 Potassium [Moles/Vol] 5.9 mmol/L 3.5-5.1 [facility] Serum or plasma sodium measu rement (moles/volume)Ordered By: Rosie Chew on 08-20-2022 Sodium [Moles/Vol] 134 mmol/L 136-146 [facility] Serum or plasma total biliru bin measurement (mass/volume)Ordered By: Rosie Chew on 08-20-2022 Bilirubin [Mass/Vol] 0.3 mg/dL 0.3-1.2 [facility] Serum or plasma total carbon dioxide measurement (moles/volume)Ordered By: Rosie Chew on 08-20-2022 CO2 [Moles/Vol] 22.2 mmol/L 22.0-30.0 [facility] Serum or plasma urea nitroge n measurement (mass/volume)Ordered By: Rosie Chew on 08-20-2022 Urea nitrogen [Mass/Vol] 28 mg/dL 9-23 [facility] Urine alpha 1 globulin/total protein by electrophoresisOrdered By: Rosie Chew on 08-20-2022 Alpha 1 globulin Elph (U) [Mass fraction] 4.7 % . [facility] Urine alpha 2 globulin/total protein ratio by electrophoresisOrdered By: Rosie Chew on 08-20-2022 Alpha 2 globulin Elph (U) [Mass fraction] 10.8 % . [facility] Urine beta globulin measurem ent by electrophoresis (mass/volume)Ordered By: Rosie Chew on 08-20-2022 Beta globulin Elph (U) [Mass/Vol] 17.6 % . [facility] WBC Auto (Bld) [#/Vol]Ordere d By: Rosie Chew on 08-20-2022 WBC (Bld) [#/Vol] 5.9 10*3/uL 4.1-10.5 [facility] Ambulatory Visit Summaryon 0 08-19-2022 Ambulatory Visit Summary PATSY MILLS :1945 Visit Date:08/19/2022 Ambulatory Visit Instructions Your Care Team Attending Physician - DANIE COOPER, KEN Naik Primary Care Physician - HELEN HEATH MD This Is Your Medications List acyclovir (Zovirax 400 mg Tab) aspirin (aspirin 81 mg Chew Tab) atorvastatin (atorvastatin 20 mg Tab) bifidobacterium-lactob acillus (Probiotic + Colostrum) cholecalciferol (Vitamin D3 2000 intl units) famotidine (famotidine 20 mg Tab) insulin glargine (Lantus insulin) insulin lispro (Humalog) lenalidomide (Revlimid 5 mg oral capsule) metformin (metformin 500 mg Tab) oxybutynin (oxybutynin 5 mg ER Tab) potassium chloride (potassium chloride 20 mEq ER Tab) tamsulosin (tamsulosin 0.4 mg Cap) Procedures Performed Transurethral insertion of prostatic urethral lift implant (05/05/2022), Cystoscopic removal of ureteric stent (08/20/2012), Cystoscopic ureteroneocystostomy with insertion 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 What to do next Scheduled Follow-Up Appointments Thursday 11:00 AM EST Where: [facility] Normal [facility] CULTURE URINEon 07-30-2022 CULTURE URINE Culture Observations : NO GROWTH. Normal [facility] Comment on above: Performed By: #### P TT, PT #### [facility] [address] [address] [address] Lydia Merritt POINT OF CARE GLUCOSEon 07-17 Glucose [Mass/Vol] 194 mg/dL Critically high 74-106 T he [facility] Comment on above: Performed By: #### P OCGLUC #### [facility] [address] [address] [address] Lydia Merritt UA (CLEAN/CATCH) JV BASEBALL COACH/MICRO I F IND.on 07-30-2022 Bilirubin Ql (U) Negative Normal NEGATIVE [facility] Comment on above: Performed By: #### U ACSIND, UMICRO #### [facility] [address] [address] [address] Lydia Merritt Clarity (U) CLOUDY Abnormal CLEAR [facility] Comment on above: Performed By: #### U ACSIND, UMICRO #### [facility] [address] [place] [address] Dr. Lydia Merritt Color (U) LT. YELLOW Normal YELLOW [facility] Comment on above: Performed By: #### U ACSIND, UMICRO #### [facility] [address] [address] [address] Lydia Merritt Glucose Ql (U) 100 mg/dl Abnormal NEGATIVE [facility] Comment on above: Performed By: #### U ACSIND, UMICRO #### [facility] [address] [address] [address] Lydia Merritt Hemoglobin Ql (U) LARGE Abnormal NEGATIVE [facility] Comment on above: Performed By: #### U ACSIND, UMICRO #### [facility] [address] [address] [address] Lydia Merritt Ketones Ql (U) Negative Normal NEGATIVE [facility] Comment on above: Performed By: #### U ACSIND, UMICRO #### [facility] [address] [address] [address] Lydia Merritt LEUKOCYTES MODERATE Abnormal NEGATIVE [facility] Comment on above: Performed By: #### U ACSIND, UMICRO #### [facility] [address] [address] [address] Lydia Merritt Nitrite Ql (U) Negative Normal NEGATIVE [facility] Comment on above: Performed By: #### U ACSIND, UMICRO #### [facility] [address] [place] [address] Dr. Lydia Merritt pH (U) 7.0 [pH] Normal 5-9 [facility] Comment on above: Performed By: #### U ACSALISSON UMICRO #### [facility] [address] [place] [address] Dr. Lydia Merritt SPEC GRAVITY 1.010 Normal 1.005-<=1.025 [facility] Comment on above: Performed By: #### U ACSALISSON, UMICRO #### [facility] [address] [place] [address] Dr. Lydia Merritt UA PROTEIN >300 Abnormal NEGATIVE/ TRACE [facility] Comment on above: Performed By: #### U ACSALISSON ICRO #### [facility] [address] [place] [address] Dr. Lydia Merritt UR MICRO IND INDICATED Normal [facility] Comment on above: Performed By: #### U ACSALISSON CALIXTORO #### [facility] [address] [place] [address] Dr. Lydia Merritt Urobilinogen Qn (U) 0.2 {Caroline'U}/dL Normal 0.2 - 1. 0 [facility] Comment on above: Performed By: #### U ACSALISSON ICRO #### [facility] [address] [place] [address] Dr. Lydia Merritt URINE MICROSCOPIC ONLYon BACTERIA TRACE Abnormal NONE SEEN [facility] Comment on above: Performed By: #### P TT, PT #### [facility] [address] [place] [address] Dr. Lydia Merritt Bacteria identified Cx Nom (U) INDICATED Normal [facility] Comment on above: Performed By: #### P TT, PT #### [facility] [address] [place] [address] Dr. Lydia Merritt CAST NONE SEEN Normal NONE SEEN [facility] Comment on above: Performed By: #### P TT, PT #### [facility] [address] [place] [address] Dr. Lydia Merritt Crystals LM Nom (Urine sed) NONE SEEN Normal NONE SEEN The [facility] Comment on above: Performed By: #### P TT, PT #### [facility] [address] [place] [address] Dr. Lydia Merritt Epithelial cells LM Ql (Urine sed) NONE SEEN Normal NONE SEEN /RARE [facility] Comment on above: Performed By: #### P TT, PT #### [facility] [address] [place] [address] Dr. Lydia Merritt MUCOUS NONE SEEN Normal NONE SEEN [facility] Comment on above: Performed By: #### P TT, PT #### [facility] [address] [place] [address] Dr. Lydia Merritt RBC (U) [#/Vol] /uL Abnormal 0-2 [facility] Comment on above: Performed By: #### P TT, PT #### [facility] [address] [place] [address] Dr. Lydia Merritt WBC (U) [#/Vol] /uL Abnormal NONE SEEN [facility] Comment on above: Performed By: #### P TT, PT #### [facility] [address] [place] [address] Dr. Lydia Merritt Covid-19 PCR ([facility])on 07-17 SARS-CoV-2 (COVID-19) RNA ERIN+probe Ql (Unsp spec) Not detected Normal NOT DETECTED [facility] Comment on above: Result Comment: When diagnostic testing is negative, the possibility of a false negative should be considered in the context of a patient's recent exposures and the presence of clinical signs and symptoms consistent with SARS-CoV-2. This test is not yet approved or cleared by the [place] FDA. When there are no FDA-approved or cleared tests available, and other criteria are met, FDA can make tests available under an emergency access mechanism called an Emergency Use Authorization (EUA). The EUA for this test is supported by the Defense Attorney of Health and Human Service's declaration that circumstances exist to justify the emergency use of in vitro diagnostics for the detection and/or diagnosis of the virus that causes COVID-19. This EUA will remain in effect for the duration of the COVID-19 declaration justifying emergency of IVDs, unless it is terminated or revoked by the FDA (after which the test may no longer be used). Performed By: #### P TT, PT #### [facility] [address] [place] [address] Dr. Lydia Merritt Albumin [Mass/volume] in Ser um or PlasmaOrdered By: Brook Huddleston on 07-21-2022 Albumin [Mass/Vol] 3.0 g/dL 3.2-5.5 [facility] Albumin [Mass/Vol] 2.9 g/dL 2.9-4.4 [facility] Albumin/Protein.total in 24 hour Urine by ElectrophoresisOrdered By: Brook Huddleston on 07-21-2022 Albumin Elph (24H U) [Mass fraction] 35.7 % . [facility] Basophils Auto (Bld) [#/Vol] Ordered By: Brook Huddleston on 07-21-2022 Basophils (Bld) [#/Vol] 0.0 10*3/uL 0.0-0.2 [facility] Basophils/100 WBC Auto (Bld) Ordered By: Brook Huddleston on 07-21-2022 Basophils/100 WBC (Bld) 0.2 % . [facility] Creatinine and Glomerular fi ltration rate.predicted panel (S/P/Bld)Ordered By: Brook Huddleston on 07-21-2022 Creatinine [Mass/Vol] 1.95 mg/dL 0.64-1.27 [facility] Eosinophils Auto (Bld) [#/Vo l]Ordered By: Brook Huddleston on 07-21-2022 Eosinophils (Bld) [#/Vol] 0.1 10*3/uL 0.0-0.45 [facility] Eosinophils/100 WBC Auto (Bl d)Ordered By: Brook Huddleston on 07-21-2022 Eosinophils/100 WBC (Bld) 3.0 % . [facility] Erythrocyte distribution wid th Auto (RBC) [Ratio]Ordered By: Brook Huddleston on 07-21-2022 Erythrocyte distribution width (RBC) [Ratio] 17.1 % 12.0-14.8 [facility] Estimated glomerular filtrat ion rate (GFR) non- AmericanOrdered By: Brook Huddleston on 07-21-2022 GFR/1.73 sq M.predicted among non-blacks MDRD (S/P/Bld) [Vol rate/Area] 34 mL/Min [facility] Gamma globulin/Protein.total in 24 hour Urine by ElectrophoresisOrdered By: Brook Huddleston on 07-21-2022 Gamma globulin Elph (24H U) [Mass fraction] 18.6 % . [facility] Globulin Calc (S) [Mass/Vol] Ordered By: Brook Huddleston on 07-21-2022 Globulin (S) [Mass/Vol] 2.8 g/dL [facility] Hematocrit Auto (Bld) [Volum e fraction]Ordered By: Brook Huddleston on 07-21-2022 Hematocrit (Bld) [Volume fraction] 25.2 % 38.8-50.0 [facility] Hemoglobin [Mass/volume] in BloodOrdered By: Brook Huddleston on 07-21-2022 Hemoglobin (Bld) [Mass/Vol] 8.6 g/dL 13.0-17.0 [facility] IgA [Mass/volume] in Serum o r PlasmaOrdered By: Brook Huddleston on 07-21-2022 IgA [Mass/Vol] 208 mg/dL 61-437 [facility] IgG [Mass/volume] in Serum o r PlasmaOrdered By: Brook Huddleston on 07-21-2022 IgG [Mass/Vol] 905 mg/dL 603-1613 [facility] IgM [Mass/volume] in Serum o r PlasmaOrdered By: Brook Huddleston on 07-21-2022 IgM [Mass/Vol] 24 mg/dL 15-143 [facility] Comment on above: Result confirmed on concentration.Performed at: [facility] [id number] Director: Melchor Agrawal PhD, Phone: [phone] Immunofixation for UrineOrde red By: Brook Huddleston on 07-21-2022 Interpretation Immunofixation (U) [Interp] See comment . [facility] Comment on above: No monoclonality det ected.Performed at: [facility] [id number] Director: Melchor Agrawal PhD, Phone: [phone] Immunoglobulin light chains. kappa.free [Mass/volume] in SerumOrdered By: Brook Huddleston on 07-21-2022 Immunoglobulin light chains.kappa.free (S) [Mass/Vol] 39.4 mg/L 3.3-19.4 [facility] Immunoglobulin light chains. kappa.free/Immunoglobulin light chains.lambda.free [MassOrdered By: Brook Huddleston on 07-21-2022 Immunoglobulin light chains.kappa.free/Immu noglobulin light chains.lambda.free (S) [Mass ratio] 1.62 0.26-1.65 [facility] Comment on above: Performed at: [address] Director: Melchor Agrawal PhD, Phone: [phone] Immunoglobulin light chains. lambda.free [Mass/volume] in Serum or PlasmaOrdered By: Brook Huddleston on 07-21-2022 Immunoglobulin light chains.lambda.free [Mass/Vol] 24.3 mg/L 5.7-26.3 [facility] Lactate dehydrogenase measur ement (enzymatic activity/volume)Ordered By: Brook Huddleston on 07-21-2022 LDH (Unsp spec) [Catalytic activity/Vol] 145 U/L 45-190 [facility] Leukocytes [#/volume] correc lizbet for nucleated erythrocytes in Blood by Automated counOrdered By: Brook Huddleston on 07-21-2022 WBC corrected for nucl RBC Auto (Bld) [#/Vol] 3.9 10*3/uL 4.1-10.5 [facility] Lymphocytes Auto (Bld) [#/Vo l]Ordered By: Brook Huddleston on 07-21-2022 Lymphocytes (Bld) [#/Vol] 0.5 10*3/uL 1.00-4.8 [facility] Lymphocytes/100 WBC Auto (Bl d)Ordered By: Brook Huddleston on 07-21-2022 Lymphocytes/100 WBC (Bld) 13.1 % . [facility] MCH Auto (RBC) [Entitic mass ]Ordered By: Brook Huddleston on 07-21-2022 MCH (RBC) [Entitic mass] 37.2 pg 27.5-35.2 [facility] MCHC Auto (RBC) [Mass/Vol]Or dered By: Brook Huddleston on 07-21-2022 MCHC (RBC) [Mass/Vol] 34.0 g/dL 32.5-35.6 [facility] MCV Auto (RBC) [Entitic vol] Ordered By: Brook Huddleston on 07-21-2022 MCV (RBC) [Entitic vol] 109.5 fL 83.5-101 [facility] Monocytes Auto (Bld) [#/Vol] Ordered By: Brook Huddleston on 07-21-2022 Monocytes (Bld) [#/Vol] 0.5 10*3/uL 0.0-0.8 [facility] Monocytes/100 WBC Auto (Bld) Ordered By: Brook Huddleston on 07-21-2022 Monocytes/100 WBC (Bld) 13.2 % . [facility] Neutrophils Auto (Bld) [#/Vo l]Ordered By: Brook Huddleston on 07-21-2022 Neutrophils (Bld) [#/Vol] 2.7 10*3/uL 1.8-7.7 [facility] Neutrophils/100 WBC Auto (Bl d)Ordered By: Brook Huddleston on 07-21-2022 Neutrophils/100 WBC (Bld) 70.5 % . [facility] No Panel InformationOrdered By: Brook Huddleston on 07-21-2022 Estimated GFR () 41 mL/Min [facility] Comment on above: GFR estimated refere nce range: According to KDOQI guidelines, <60 ml/min/1.73m2 is sufficient to diagnose a patient with chronic kidney disease. Pharmacy Creatinine Clearance (Chem 35.77 [facility] Protein Electrophoresis M-Anselmo Comment: g/dL Not Observed [facility] Comment on above: SPE shows asymmetric al beta. Protein Electrophoresis Note See comment . [facility] Comment on above: Protein electrophore sis scan will follow via computer,mail, or monument letterer delivery.Performed at: [employer] [id number] Director: Melchor Agrawal PhD, Phone: [phone] Urine Random Prot Electrophor Note See comment . [facility] Comment on above: Protein electrophore sis scan will follow via computer,mail, or monument letterer delivery.Performed at: [address] [id number] Director: Melchor Agrawal PhD, Phone: [phone] Nucleated erythrocytes [Pres ence] in Blood by Automated countOrdered By: Brook Huddleston on 07-21-2022 Nucleated RBC Auto Ql (Bld) 0.1 /100{WBC} 0-0.5 [facility] Platelet mean volume Auto (B ld) [Entitic vol]Ordered By: Brook Huddleston on 07-21-2022 Platelet mean volume (Bld) [Entitic vol] 8.3 fL 6.6-10.1 [facility] Platelets Auto (Bld) [#/Vol] Ordered By: Brook Huddleston on 07-21-2022 Platelets (Bld) [#/Vol] 101 10*3/uL 150-450 [facility] Protein [Mass/volume] in Ser um or PlasmaOrdered By: Brook Huddleston on 07-21-2022 Protein [Mass/Vol] 5.8 g/dL 6.1-7.9 [facility] Protein [Mass/Vol] 5.9 g/dL 6.0-8.5 [facility] Protein [Mass/volume] in Uri neOrdered By: Brook Huddleston on 07-21-2022 Protein (U) [Mass/Vol] 95.7 mg/dL Not [facility]ab. [facility] Protein.monoclonal/Protein.t otal in 24 hour Urine by ElectrophoresisOrdered By: Brook Huddleston on 07-21-2022 Protein.monoclonal Elph (24H U) [Mass fraction] Comment: % Not Observed [facility] Comment on above: UPE shows asymmetric al beta and gamma regions. RBC Auto (Bld) [#/Vol]Ordere d By: Brook Huddleston on 07-21-2022 RBC (Bld) [#/Vol] 2.30 10*6/uL 3.90-5.60 [facility] Serum globulin measurement ( mass/volume)Ordered By: Brook Huddleston on 07-21-2022 Globulin (S) [Mass/Vol] 3.0 g/dL 2.2-3.9 [facility] Serum or plasma alanine etienne otransferase measurement without P-5'-P (enzymatic activiOrdered By: Brook Huddleston on 07-21-2022 ALT No additional P-5'-P [Catalytic activity/Vol] 37 U/L 10-60 [facility] Serum or plasma albumin/glob ulin mass ratioOrdered By: Brook Huddleston on 07-21-2022 Albumin/Globulin [Mass ratio] 1.1 {ratio} [facility] Albumin/Globulin [Mass ratio] 1.0 {ratio} 0.7-1.7 [facility] Serum or plasma alkaline tammy sphatase measurement (enzymatic activity/volume)Ordered By: Brook Huddleston on 07-21-2022 ALP [Catalytic activity/Vol] 110 U/L 32-92 [facility] Serum or plasma alpha 1 glob ulin measurement by electrophoresis (mass/volume)Ordered By: Brook Huddleston on 07-21-2022 Alpha 1 globulin Elph [Mass/Vol] 0.4 g/dL 0.0-0.4 [facility] Serum or plasma alpha 2 glob ulin measurement by electrophoresis (mass/volume)Ordered By: Brook Huddleston on 07-21-2022 Alpha 2 globulin Elph [Mass/Vol] 1.0 g/dL 0.4-1.0 [facility] Serum or plasma anion gap de terminationOrdered By: Brook Huddleston on 07-21-2022 Anion gap [Moles/Vol] 15.6 mmol/L 6.0-15.0 [facility] Serum or plasma aspartate am inotransferase measurement (enzymatic activity/volume)Ordered By: Brook Huddleston on 07-21-2022 AST [Catalytic activity/Vol] 27 U/L 10-42 [facility] Serum or plasma beta globuli n measurement by electrophoresis (mass/volume)Ordered By: Brook Huddleston on 07-21-2022 Beta globulin Elph [Mass/Vol] 0.8 g/dL 0.7-1.3 [facility] Serum or plasma calcium reese urement (mass/volume)Ordered By: Brook Huddleston on 07-21-2022 Calcium [Mass/Vol] 8.6 mg/dL 8.2-10.2 [facility] Serum or plasma chloride gurdeep surement (moles/volume)Ordered By: Brook Huddleston on 07-21-2022 Chloride [Moles/Vol] 100 mmol/L 95-114 [facility] Serum or plasma gamma globul in measurement by electrophoresis (mass/volume)Ordered By: Brook Huddleston on 07-21-2022 Gamma globulin Elph [Mass/Vol] 0.8 g/dL 0.4-1.8 [facility] Serum or plasma glucose reese urement (mass/volume)Ordered By: Brook Huddleston on 07-21-2022 Glucose [Mass/Vol] 191 mg/dL 70-100 [facility] Comment on above: ADA recommended refe rence rangeRandom Glucose Reference Range is dependent on time and content of last meal. Glucose of more than 200 mg/dL in a nonstressed, ambulatory subject supports the diagnosis of Diabetes Mellitus. Serum or plasma potassium me asurement (moles/volume)Ordered By: Brook Huddleston on 07-21-2022 Potassium [Moles/Vol] 4.7 mmol/L 3.5-5.1 [facility] Serum or plasma sodium measu rement (moles/volume)Ordered By: Brook Huddleston on 07-21-2022 Sodium [Moles/Vol] 128 mmol/L 136-146 [facility] Serum or plasma total biliru bin measurement (mass/volume)Ordered By: Brook Huddleston on 07-21-2022 Bilirubin [Mass/Vol] 0.7 mg/dL 0.3-1.2 [facility] Serum or plasma total carbon dioxide measurement (moles/volume)Ordered By: Brook Huddleston on 07-21-2022 CO2 [Moles/Vol] 17.1 mmol/L 22.0-30.0 [facility] Serum or plasma urea nitroge n measurement (mass/volume)Ordered By: Brook Huddleston on 07-21-2022 Urea nitrogen [Mass/Vol] 26 mg/dL 9-23 [facility] Urine alpha 1 globulin/total protein by electrophoresisOrdered By: Brook Huddleston on 07-21-2022 Alpha 1 globulin Elph (U) [Mass fraction] 6.5 % . [facility] Urine alpha 2 globulin/total protein ratio by electrophoresisOrdered By: Brook Huddleston on 07-21-2022 Alpha 2 globulin Elph (U) [Mass fraction] 18.3 % . [facility] Urine beta globulin measurem ent by electrophoresis (mass/volume)Ordered By: Brook Huddleston on 07-21-2022 Beta globulin Elph (U) [Mass/Vol] 20.8 % . [facility] WBC Auto (Bld) [#/Vol]Ordere d By: Brook Flaquito on 07-21-2022 WBC (Bld) [#/Vol] 3.9 10*3/uL 4.1-10.5 [facility] CBC AUTO DIFFon 07-17-2022 BASO # 0.0 103/ul Normal 0.0-0.1 [facility] Comment on above: Performed By: #### P TT, PT #### [facility] [address] [address] [address] Lydia Merritt Basophils/100 WBC (Bld) 0.4 % Normal 0.2-2.0 [facility] Comment on above: Performed By: #### P TT, PT #### [facility] [address] [address] [address] Lydia Merritt EO # 0.4 103/ul Normal 0.0-0.7 [facility] Comment on above: Performed By: #### P TT, PT #### [facility] [address] [address] [address] Lydia Merritt Eosinophils/100 WBC (Bld) 7.6 % Critically high 0.9-7.0 [facility] Comment on above: Performed By: #### P TT, PT #### [facility] [address] [address] [address] Lydia Merritt Erythrocyte distribution width (RBC) [Ratio] 16.0 % Critically high 11.0-15.0 [facility] Comment on above: Performed By: #### P TT, PT #### [facility] [address] [address] [address] Lydia Merritt Hematocrit (Bld) [Volume fraction] 26.9 % Critically low 42.0-54.0 [facility] Comment on above: Performed By: #### P TT, PT #### [facility] [address] [address] [address] Lydia Merritt Hemoglobin (Bld) [Mass/Vol] 9.0 g/dL Critically low 14.0-18.0 [facility] Comment on above: Performed By: #### P TT, PT #### [facility] [address] [address] [address] Lydia Merritt IG # 0.02 10e3/ul Normal 0.00-0.03 [facility] Comment on above: Performed By: #### P TT, PT #### [facility] [address] [place] [address] Dr. Lydia Merritt IG % 0.4 % Normal 0.0-0.5 [facility] Comment on above: Performed By: #### P TT, PT #### [facility] [address] [place] [address] Dr. Lydia Merritt LYMPH # 0.6 103/ul Critically low 1.2-3.8 [facility] Comment on above: Performed By: #### P TT, PT #### [facility] [address] [place] [address] Dr. Lydia Merritt Lymphocytes/100 WBC (Bld) 12.4 % Critically low 20.5-60.0 [facility] Comment on above: Performed By: #### P TT, PT #### [facility] [address] [place] [address] Dr. Lydia Merritt MANUAL DIFF REQ NO Normal [facility] Comment on above: Performed By: #### P TT, PT #### [facility] [address] [address] [address] Lydia Merritt MCH (RBC) [Entitic mass] 37.3 pg Critically high 25.9-34.0 [facility] Comment on above: Performed By: #### P TT, PT #### [facility] [address] [place] [address] Dr. Lydia Merritt MCHC (RBC) [Mass/Vol] 33.5 g/dL Normal 29.9-35.2 [facility] Comment on above: Performed By: #### P TT, PT #### [facility] [address] [place] [address] Dr. Lydia Merritt MCV (RBC) [Entitic vol] 111.6 fL Critically high 80.0-94.0 [facility] Comment on above: Result Comment: MACR OCYTOSIS 2+ Performed By: #### P TT, PT #### [facility] [address] [place] [address] Dr. Lydia Merritt MONO # 0.5 103/ul Normal 0.3-0.8 [facility] Comment on above: Performed By: #### P TT, PT #### [facility] [address] [place] [address] Dr. Lydia Merritt Monocytes/100 WBC (Bld) 10.8 % Normal 1.7-12.0 [facility] Comment on above: Performed By: #### P TT, PT #### [facility] [address] [place] [address] Dr. Lydia Merritt NEUT # 3.2 103/ul Normal 1.4-6.5 [facility] Comment on above: Performed By: #### P TT, PT #### [facility] [address] [place] [address] Dr. Lydia Merritt Neutrophils/100 WBC (Bld) 68.4 % Normal 43.0-75.0 [facility] Comment on above: Performed By: #### P TT, PT #### [facility] [address] [place] [address] Dr. Lydia Merritt Platelet mean volume (Bld) [Entitic vol] 10.1 fL Normal 9.5-13.5 [facility] Comment on above: Performed By: #### P TT, PT #### [facility] [address] [place] [address] Dr. Lydia Merritt PLT 110 103/ul Critically low 150-450 [facility] Comment on above: Performed By: #### P TT, PT #### [facility] [address] [place] [address] Dr. yLdia Merritt RBC 2.41 106/ul Critically low 4.70-6.10 [facility] Comment on above: Performed By: #### P TT, PT #### [facility] [address] [place] [address] Dr. Lydia Merritt WBC 4.6 103/ul Normal 4.0-11.0 [facility] Comment on above: Performed By: #### P TT, PT #### [facility] [address] [place] [address] Dr. Lydia Merritt PROF CHEM 8 (BAS METB)on Anion gap [Moles/Vol] 11.9 mmol/L Normal Th [facility] Comment on above: Performed By: #### B MP #### [facility] [address] [place] [address] Dr. Lydia Merritt Calcium [Mass/Vol] 9.0 mg/dL Normal 8.5-10.1 [facility] Comment on above: Performed By: #### B MP #### [facility] [address] [place] [address] Dr. Lydia Merritt Chloride [Moles/Vol] 105 mmol/L Normal 98-107 [facility] Comment on above: Performed By: #### B MP #### [facility] [address] [place] [address] Dr. Lydia Merritt CO2 [Moles/Vol] 25.2 mmol/L Normal 21.0-32.0 [facility] Comment on above: Performed By: #### B MP #### [facility] [address] [place] [address] Dr. Lydia Merritt Creatinine [Mass/Vol] 1.71 mg/dL Critically high 0.70-1.30 [facility] Comment on above: Performed By: #### B MP #### [facility] [address] [place] [address] Dr. Lydia Merritt EGFR-AF CAMBODIAN 47 mL/min/1.73m2 Critically low >=60 [facility] Comment on above: Performed By: #### B MP #### [facility] [address] [place] [address] Dr. Lydia Merritt EGFR-NON AF CAMBODIAN 39 mL/min/1.73m2 Critically low >=60 [facility] Comment on above: Performed By: #### B MP #### [facility] [address] [address] [address] Lydia Merritt Glucose [Mass/Vol] 127 mg/dL Critically high 74-106 T [facility] Comment on above: Performed By: #### B MP #### [facility] [address] [address] [address] Lydia Merritt Potassium [Moles/Vol] 5.1 mmol/L Normal 3.5-5.1 [facility] Comment on above: Performed By: #### B MP #### [facility] [address] [address] [address] Lydia Merritt Sodium [Moles/Vol] 137 mmol/L Normal 136-145 [facility] Comment on above: Performed By: #### B MP #### [facility] [address] [address] [address] Lydia Merritt Urea nitrogen [Mass/Vol] 23.0 mg/dL Critically high 7.0-18.0 [facility] Comment on above: Performed By: #### B MP #### [facility] [address] [address] [address] Lydia Merritt Urea nitrogen/Creatinine [Mass ratio] 13.5 mg/mg Normal [facility] Comment on above: Performed By: #### B MP #### [facility] [address] [address] [address] Lydia Merritt PROTIMEon 07-17-2022 INR Coag (PPP) [Relative time] 0.97 {INR} Normal [facility] Comment on above: Performed By: #### P TT, PT #### [facility] [address] [place] [address] Dr. Lydia Merritt INR GUIDELINES SEE BELOW Normal [facility] Comment on above: Result Comment: DILLON RED INR: 2.0 - 3.0 CONDITIONS NOT LISTED BELOW 2.5 - 3.5 FOR PROSTHETIC HEART VALVE REPLACEMENT 2.5 - 3.5 RECURRENT THROMBOSIS Performed By: #### P TT, PT #### [facility] [address] [address] [address] Lydia Merritt PT Coag (PPP) [Time] 10.5 s Normal 9.0-11.6 [facility] Comment on above: Performed By: #### P TT, PT #### [facility] [address] [address] [address] Lydia Merritt PTTon 07-17-2022 aPTT Coag (Bld) [Time] 27.1 s Normal 22.3-36.2 [facility] Comment on above: Performed By: #### P TT, PT #### [facility] [address] [address] [address] Lydia Merritt BLADDERon 07-17-2022 US BLADDER EXAMINATION: US BLADDER HISTORY: Lower urinary tract symptoms due to benign prostatic hypertrophy COMPARISON: No relevant comparison available. TECHNIQUE: Ultrasound examination was performed of the bladder. FINDINGS: Suboptimal visualization of the prostate gland due to body habitus and bladder. The prostate gland grossly measures 3.8 x 2.7 x 3.3 cm with a volume of 17.5 mL the prostate gland is lobular in contour with heterogeneous echotexture Urinary bladder: Prevoid 668 mL. Post void 26 mL IMPRESSION: Heterogeneous lobular normal-sized prostate gland Electronically authenticated by: CHAD BURNETTE Date: 2022-07-17 17:[address] [facility] XR CHEST 2 Von 07-17-2022 XR CHEST 2 V EXAM: Frontal and lateral chest HISTORY: . Benign prostatic hyperplasia . COMPARISON: 03/04/2020 TECHNIQUE: Frontal and lateral chest FINDINGS: Heart and vascularity are unremarkable. Lungs are free of focal infiltrates. Atherosclerotic changes of the thoracic aorta are noted. Early spondylosis of the spine is noted. IMPRESSION: No acute heart or lung disease identified. Electronically authenticated by: CHAD QUINTERO Date: 2022-07-17 12:[address] [facility] Note - Heme Oncon Clinic Note - Heme Onc Cancer History: Treatment Synopsis: Mr Mills was initially referred from Dr. 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 At diagnosis there was no bony lytic lesion on skeletal survey, bone marrow showed 70% light chain restricted plasma cells. Subsequently, he underwent Beth/V/D, and then Revlimid 25 mg () was added. Overall therapy was tolerated fine, had steroid induced DM needed insulin. B12 was low and it was replaced. Treatment History: Mr. 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 Hospital course notable for 8 of 8 blood cultures growing MSSA, ECHO negative for vegetation. He was discharged to [facility] for physical rehab & to complete treatment with Cefazolin 2gm IV every 8 hrs through 08/20/2020. History of Present Illness: ID Statement: PATSY MILLS is a 77 year old Male and Day of Transplant #[id number] Chief Complaint: Post transplant myeloma Interval History: We had a phone visit, having prostate issue, had bone marrow biopsy and is eager to know the result. Review of Systems: Review of Systems: Pertinent positives and negatives as per history of present illness. Remainder of 10 point review of systems is negative. Allergies and Intolerances: Allergies: No Known Allergies: Active Outpatient Medication Profile: * Patient Currently Takes Medications as of 12-Dec-2021 10:16 documented in Structured Notes potassium chloride 20 mEq oral tablet, extended release: 1 tab(s) orally once a day , Start Date: 29-Oct-2020 famotidine 20 mg oral tablet: 1 tab(s) orally once (at bedtime), Start Date: 15-Oct-2020 atorvastatin 20 mg oral tablet: 1 tab(s) orally once (at bedtime), Start Date: 13-Sep-2020 acyclovir 400 mg oral tablet: 1 tab(s) orally every 12 hours, Start Date: 13-Sep-2020 insulin lispro 100 units/mL injectable solution: international unit(s) injectable 3 times a day -Use as Directed 3 times a day (with meals) per Corrective Scale (Mild) , Start Date: 20-Aug-2020 Vitamin D3 2000 intl units (50 mcg) oral capsule: 1 cap(s) orally once a day Lantus Solostar Pen 100 units/mL subcutaneous solution: 12 unit(s) subcutaneous once a day (at bedtime) Revlimid 5 mg oral capsule: 1 cap(s) orally once a day aspirin 81 mg oral tablet: 1 tab(s) orally once a day metFORMIN 500 mg oral tablet: 1 tab(s) orally 2 times a day tamsulosin 0.4 mg oral capsule: 1 cap(s) orally 2 times a day furosemide 20 mg oral tablet: 1 tab(s) orally once a day, As Needed Medical History: Peripheral neuropathy: ICD-10: G62.9, Status: Active Hypertension: ICD-10: I10, Status: Active Steroid-induced hyperglycemia: ICD-10: R73.9, Status: Active Leukocytosis: ICD-10: D72.829, Status: Active Anemia: ICD-10: D64.9, Status: Active Hypokalemia: ICD-10: E87.6, Status: Active Dysgeusia: ICD-10: R43.2, Status: Active Pancytopenia: ICD-10: D61.818, Status: Active Staphylococcus aureus bacteremia with sepsis: ICD-10: A41.01, Status: Active Bacteremia due to Staphylococcus aureus: ICD-10: R78.81, Status: Active 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 Social History: Social Substance History: Smoking Statusnever smoker Tobacco Usedenies Alcohol Usedenies Drug Usedenies Additional History Family/friend support: Employment: Retired [employer] Work[employer] Living arrangements: Lives with Advanced directives: Living will and DPOA on file Spirituality: Yazdanism PMH: DM, HTN, RINA, Sleep Apnea PSH: HD catheter Family Hx: non contributory (1) Lab Results: Results CBC date/time WBC HGB HCT PLT Neut 28-Nov-2021 08:55 2.3(L) 8.6(L) 25.3(L) 72(L) 1.13(L) BMP date/time NA K CL CO2 BUN CREAT 28-Nov-2021 08:55 140 3.4(L) 105 N/A 14 1.14 Hepatic date/time T Pro T Bili AST ALT ALKP ALB 11-Aug-2020 11:06 N/A N/A N/A N/A N/A N/A LDH date/time LDH 28-Nov-2021 08:55 150 Assessment and Plan: Assessment and Plan: Plan: Mr. 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 ONC - Presented with light chain nephropathy in February 2020. - At the time of diagnosis: Free Malden Light Chain was 1200 mg/dL; M Anselmo IgG Malden P (more content not included)... Normal [facility] Albumin [Mass/volume] in Ser um or PlasmaOrdered By: Brook Huddleston on 06-13-2022 Albumin [Mass/Vol] 3.913367691809 g/dL [facility] Comment on above: Reference: 2.9-4.4 Albumin/Protein.total in 24 hour Urine by ElectrophoresisOrdered By: Brook Huddleston on 06-13-2022 Albumin Elph (24H U) [Mass fraction] 40.2 % . [facility] Anisocytosis LM Ql (Bld)Orde red By: Brook Huddleston on 06-13-2022 Anisocytosis Ql (Bld) Slight [facility] Basophils Auto (Bld) [#/Vol] Ordered By: Brook Huddleston on 06-13-2022 Basophils (Bld) [#/Vol] 0.0 10*3/uL 0.0-0.2 [facility] Basophils/100 WBC Auto (Bld) Ordered By: Brook Huddleston on 06-13-2022 Basophils/100 WBC (Bld) 0.5 % . [facility] Body fluid albumin measureme nt (mass/volume)Ordered By: Borok Huddleston on 06-13-2022 Albumin (Body fld) [Mass/Vol] 3.3 g/dL 3.2-5.5 [facility] Creatinine and Glomerular fi ltration rate.predicted panel (S/P/Bld)Ordered By: Brook Huddlseton on 06-13-2022 Creatinine [Mass/Vol] 2.40 mg/dL 0.64-1.27 [facility] Eosinophils Auto (Bld) [#/Vo l]Ordered By: Brook Huddleston on 06-13-2022 Eosinophils (Bld) [#/Vol] 0.6 10*3/uL 0.0-0.45 [facility] Eosinophils/100 WBC Auto (Bl d)Ordered By: Brook Huddleston on 06-13-2022 Eosinophils/100 WBC (Bld) 12.4 % . [facility] Erythrocyte distribution wid th Auto (RBC) [Ratio]Ordered By: Brook Huddleston on 06-13-2022 Erythrocyte distribution width (RBC) [Ratio] 15.3 % 12.0-14.8 [facility] Estimated glomerular filtrat ion rate (GFR) non- AmericanOrdered By: Brook Huddleston on 06-13-2022 GFR/1.73 sq M.predicted among non-blacks MDRD (S/P/Bld) [Vol rate/Area] 26 mL/Min [facility] Gamma globulin/Protein.total in 24 hour Urine by ElectrophoresisOrdered By: Brook Huddleston on 06-13-2022 Gamma globulin Elph (24H U) [Mass fraction] 23.3 % . [facility] Globulin Calc (S) [Mass/Vol] Ordered By: Brook Huddleston on 06-13-2022 Globulin (S) [Mass/Vol] 2.8 g/dL [facility] Hematocrit Auto (Bld) [Volum e fraction]Ordered By: Brook Huddleston on 06-13-2022 Hematocrit (Bld) [Volume fraction] 30.5 % 38.8-50.0 [facility] Hemoglobin [Mass/volume] in BloodOrdered By: Brook Huddleston on 06-13-2022 Hemoglobin (Bld) [Mass/Vol] 10.2 g/dL 13.0-17.0 [facility] IgA [Mass/volume] in Serum o r PlasmaOrdered By: Brook Huddleston on 06-13-2022 IgA [Mass/Vol] 232 mg/dL [facility] Comment on above: Reference: 61-437 IgG [Mass/volume] in Serum o r PlasmaOrdered By: Brook Huddleston on 06-13-2022 IgG [Mass/Vol] 972 mg/dL [facility] Comment on above: Reference: 603-1613 IgM [Mass/volume] in Serum o r PlasmaOrdered By: Brook Huddleston on 06-13-2022 IgM [Mass/Vol] 30 mg/dL [facility] Comment on above: Reference: 15-143 Immunofixation for UrineOrde red By: Brook Huddleston on 06-13-2022 Interpretation Immunofixation (U) [Interp] Comment: . [facility] Comment on above: Presence of monoclon al protein is unclear at this time. Suggestrepeat in 3 to 6 months if clinically indicated.Performed at: [place] [id number] Director: Melchor Agrawal PhD, Phone: [phone] Laboratory - Hematology and Cell countsOrdered By: Brook Huddleston on 06-13-2022 Nucleated RBC/100 WBC (Bld) [Ratio] 0.3 % 0-0.5 [facility] WBC (Bld) [#/Vol] 5.4 10*3/uL 4.5-11.0 [facility] Lactate dehydrogenase measur ement (enzymatic activity/volume)Ordered By: Brook Huddleston on 06-13-2022 LDH (Unsp spec) [Catalytic activity/Vol] 125 U/L 45-190 [facility] Lymphocytes Auto (Bld) [#/Vo l]Ordered By: Brook Huddleston on 06-13-2022 Lymphocytes (Bld) [#/Vol] 0.9 10*3/uL 1.00-4.8 [facility] Lymphocytes/100 WBC Auto (Bl d)Ordered By: Brook Huddleston on 06-13-2022 Lymphocytes/100 WBC (Bld) 18.9 % . [facility] MCH Auto (RBC) [Entitic mass ]Ordered By: Brook Huddleston on 06-13-2022 MCH (RBC) [Entitic mass] 36.7 pg 27.5-35.2 [facility] MCHC Auto (RBC) [Mass/Vol]Or dered By: Brook Huddleston on 06-13-2022 MCHC (RBC) [Mass/Vol] 33.5 g/dL 32.5-35.6 [facility] MCV Auto (RBC) [Entitic vol] Ordered By: Brook Flaquito on 06-13-2022 MCV (RBC) [Entitic vol] 109.7 fL 83.5-101 [facility] Macrocytes LM Ql (Bld)Ordere d By: Brook Huddleston on 06-13-2022 Macrocytes Ql (Bld) Moderate [facility] Monocytes Auto (Bld) [#/Vol] Ordered By: Brook Huddleston on 06-13-2022 Monocytes (Bld) [#/Vol] 0.7 10*3/uL 0.0-0.8 [facility] Monocytes/100 WBC Auto (Bld) Ordered By: Brook Huddleston on 06-13-2022 Monocytes/100 WBC (Bld) 14.2 % . [facility] Neutrophils Auto (Bld) [#/Vo l]Ordered By: Brook Huddleston on 06-13-2022 Neutrophils (Bld) [#/Vol] 2.7 10*3/uL 1.8-7.7 [facility] Neutrophils/100 WBC Auto (Bl d)Ordered By: Brook Huddleston on 06-13-2022 Neutrophils/100 WBC (Bld) 54.0 % . [facility] No Panel InformationOrdered By: Brook Huddleston on 06-13-2022 Estimated GFR () 32 mL/Min [facility] Comment on above: GFR estimated refere nce range: According to KDOQI guidelines, <60 ml/min/1.73m2 is sufficient to diagnose a patient with chronic kidney disease. Pharmacy Creatinine Clearance (Chem 30.32 [facility] Protein Electrophoresis M-Anselmo Not observed [facility] Comment on above: Reference: Not Obser jonathan Protein Electrophoresis Note See comment [facility] Comment on above: Protein electrophore sis scan will follow via computer, mail, or monument letterer delivery.Performing Labs01: CB - [facility] [address], [id number] Dir: Melchor Agrawal, PhDFor Inquiries, the physician may contact Branch: [phone] Lab: [phone] Serum Immunofixation See comment [facility] Comment on above: No monoclonality det ected. Urine Random Prot Electrophor Note See comment . [facility] Comment on above: Protein electrophore sis scan will follow via computer,mail, or monument letterer delivery. Ovalocyte detectionOrdered B y: Brook Huddleston on 06-13-2022 Ovalocytes LM Ql (Bld) Slight [facility] Platelet adequacy [Presence] in Blood by Light microscopyOrdered By: Brook Huddleston on 06-13-2022 Platelets LM Ql (Bld) Decreased Normal [facility] Platelet mean volume Auto (B ld) [Entitic vol]Ordered By: Brook Huddleston on 06-13-2022 Platelet mean volume (Bld) [Entitic vol] 9.1 fL 6.6-10.1 [facility] Platelet morphology finding [Identifier] in BloodOrdered By: Brook Huddleston on 06-13-2022 Platelet morphology finding Nom (Bld) Normal Normal [facility] Platelets Auto (Bld) [#/Vol] Ordered By: Brook Huddleston on 06-13-2022 Platelets (Bld) [#/Vol] 122 10*3/uL 150-450 [facility] Poikilocytosis [Presence] in Blood by Light microscopyOrdered By: Brook Huddleston on 06-13-2022 Poikilocytosis LM Ql (Bld) Slight [facility] Protein [Mass/volume] in Ser um or PlasmaOrdered By: Brook Huddleston on 06-13-2022 Protein [Mass/Vol] 6.1 g/dL 6.1-7.9 [facility] Protein [Mass/Vol] 6.275784572788 g/dL [facility] Comment on above: Reference: 6.0-8.5 Protein [Mass/volume] in Uri neOrdered By: Brook Huddleston on 06-13-2022 Protein (U) [Mass/Vol] 132.7 mg/dL Not Estab. F [facility] Protein.monoclonal/Protein.t otal in 24 hour Urine by ElectrophoresisOrdered By: Brook Huddleston on 06-13-2022 Protein.monoclonal Elph (24H U) [Mass fraction] Comment: % Not Observed [facility] Comment on above: UPE shows asymmetric al gamma. RBC Auto (Bld) [#/Vol]Ordere d By: Brook Huddleston on 06-13-2022 RBC (Bld) [#/Vol] 2.78 10*6/uL 3.90-5.60 [facility] RBC morphologyOrdered By: Am safia Flaquito on 06-13-2022 RBC morphology finding Nom (Bld) N/A [facility] Serum globulin measurement ( mass/volume)Ordered By: Brook Huddleston on 06-13-2022 Globulin (S) [Mass/Vol] 3.884841240859 g/dL [facility] Comment on above: Reference: 2.2-3.9 Serum or plasma alanine etienne otransferase measurement without P-5'-P (enzymatic activiOrdered By: Brook Huddleston on 06-13-2022 ALT No additional P-5'-P [Catalytic activity/Vol] 33 U/L [facility] Serum or plasma albumin/glob ulin mass ratioOrdered By: Brook Huddleston on 06-13-2022 Albumin/Globulin [Mass ratio] 1.2 {ratio} [facility] Albumin/Globulin [Mass ratio] 1.0 {ratio} [facility] Comment on above: Reference: 0.7-1.7 Serum or plasma alkaline tammy sphatase measurement (enzymatic activity/volume)Ordered By: Brook Huddleston on 06-13-2022 ALP [Catalytic activity/Vol] 116 U/L 32-92 [facility] Serum or plasma alpha 1 glob ulin measurement by electrophoresis (mass/volume)Ordered By: Brook Huddleston on 06-13-2022 Alpha 1 globulin Elph [Mass/Vol] 0.7288929757468 g/dL [facility] Comment on above: Reference: 0.0-0.4 Serum or plasma alpha 2 glob ulin measurement by electrophoresis (mass/volume)Ordered By: Brook Huddleston on 06-13-2022 Alpha 2 globulin Elph [Mass/Vol] 1.396880328511 g/dL [facility] Comment on above: Reference: 0.4-1.0 Serum or plasma anion gap de terminationOrdered By: Brook Huddleston on 06-13-2022 Anion gap [Moles/Vol] 17.0 mmol/L 6.0-15.0 [facility] Serum or plasma aspartate am inotransferase measurement (enzymatic activity/volume)Ordered By: Brook Huddleston on 06-13-2022 AST [Catalytic activity/Vol] 24 U/L 10-42 [facility] Serum or plasma beta globuli n measurement by electrophoresis (mass/volume)Ordered By: Brook Huddleston on 06-13-2022 Beta globulin Elph [Mass/Vol] 1.676420184724 g/dL [facility] Comment on above: Referene: 0.7-1.3 Serum or plasma calcium reese urement (mass/volume)Ordered By: Brook Huddleston on 06-13-2022 Calcium [Mass/Vol] 9.2 mg/dL 8.2-10.2 [facility] Serum or plasma chloride gurdeep surement (moles/volume)Ordered By: Brook Huddleston on 06-13-2022 Chloride [Moles/Vol] 101 mmol/L 95-114 [facility] Serum or plasma gamma globul in measurement by electrophoresis (mass/volume)Ordered By: Brook Huddleston on 06-13-2022 Gamma globulin Elph [Mass/Vol] 1.660420267302 g/dL [facility] Comment on above: Reference: 0.4-1.8 Serum or plasma glucose reese urement (mass/volume)Ordered By: Brook Huddleston on 06-13-2022 Glucose [Mass/Vol] 176 mg/dL 70-100 [facility] Comment on above: ADA recommended refe rence rangeRandom Glucose Reference Range is dependent on time and content of last meal. Glucose of more than 200 mg/dL in a nonstressed, ambulatory subject supports the diagnosis of Diabetes Mellitus. Serum or plasma potassium me asurement (moles/volume)Ordered By: Brook Huddleston on 06-13-2022 Potassium [Moles/Vol] 4.9 mmol/L 3.5-5.1 [facility] Serum or plasma sodium measu rement (moles/volume)Ordered By: Brook Huddleston on 06-13-2022 Sodium [Moles/Vol] 133 mmol/L 136-146 [facility] Serum or plasma total biliru bin measurement (mass/volume)Ordered By: Brook Huddleston on 06-13-2022 Bilirubin [Mass/Vol] 0.6 mg/dL 0.3-1.2 [facility] Serum or plasma total carbon dioxide measurement (moles/volume)Ordered By: Brook Huddleston on 06-13-2022 CO2 [Moles/Vol] 19.9 mmol/L 22.0-30.0 [facility] Serum or plasma urea nitroge n measurement (mass/volume)Ordered By: Brook Huddleston on 06-13-2022 Urea nitrogen [Mass/Vol] 32 mg/dL 05-09 [facility] Urine alpha 1 globulin/total protein by electrophoresisOrdered By: Brook Huddleston on 06-13-2022 Alpha 1 globulin Elph (U) [Mass fraction] 5.5 % . [facility] Urine alpha 2 globulin/total protein ratio by electrophoresisOrdered By: Brook Huddleston on 06-13-2022 Alpha 2 globulin Elph (U) [Mass fraction] 11.8 % . [facility] Urine beta globulin measurem ent by electrophoresis (mass/volume)Ordered By: Brook Huddleston on 06-13-2022 Beta globulin Elph (U) [Mass/Vol] 19.2 % . [facility] WBC Auto (Bld) [#/Vol]Ordere d By: Brook Huddleston on 06-13-2022 WBC (Bld) [#/Vol] 5.0 10*3/uL 4.1-10.5 [facility] Activated partial thrombopla stin time (aPTT) in platelet poor plasma by coagulation aOrdered By: Brook Huddleston on 04-30-2022 aPTT Coag (PPP) [Time] 30.1 s 25.1-36.5 [facility] Albumin [Mass/volume] in Ser um or PlasmaOrdered By: Brook Huddleston on 04-30-2022 Albumin [Mass/Vol] 3.5 g/dL 3.2-5.5 [facility] Albumin [Mass/Vol] 3.7 g/dL 2.9-4.4 [facility] Albumin/Protein.total in 24 hour Urine by ElectrophoresisOrdered By: Brook Huddleston on 04-30-2022 Albumin Elph (24H U) [Mass fraction] 36.8 % . [facility] Basophils Auto (Bld) [#/Vol] Ordered By: Brook Huddleston on 04-30-2022 Basophils (Bld) [#/Vol] 0.0 10*3/uL 0.0-0.2 [facility] Basophils/100 WBC Auto (Bld) Ordered By: Brook Huddleston on 04-30-2022 Basophils/100 WBC (Bld) 0.8 % . [facility] Blood anisocytosis detection Ordered By: Brook Huddleston on 04-30-2022 Anisocytosis Ql (Bld) Slight [facility] Blood hemoglobin measurement (mass/volume)Ordered By: Brook Huddleston on 04-30-2022 Hemoglobin (Bld) [Mass/Vol] 10.7 g/dL 13.0-17.0 [facility] Blood leukocytes automated c ount (number/volume)Ordered By: Brook Huddleston on 04-30-2022 WBC (Bld) [#/Vol] 3.4 10*3/uL 4.5-11.0 [facility] Blood polychromasia detectio n by light microscopyOrdered By: Brook Huddleston on 04-30-2022 Polychromasia LM Ql (Bld) Slight [facility] Creatinine and Glomerular fi ltration rate.predicted panel (S/P/Bld)Ordered By: Brook Huddleston on 04-30-2022 Creatinine [Mass/Vol] 1.81 mg/dL 0.64-1.27 [facility] Eosinophils Auto (Bld) [#/Vo l]Ordered By: Brook Huddleston on 04-30-2022 Eosinophils (Bld) [#/Vol] 0.3 10*3/uL 0.0-0.45 [facility] Eosinophils/100 WBC Auto (Bl d)Ordered By: Brook Huddleston on 04-30-2022 Eosinophils/100 WBC (Bld) 9.9 % . [facility] Erythrocyte distribution wid th Auto (RBC) [Ratio]Ordered By: Brook Huddleston on 04-30-2022 Erythrocyte distribution width (RBC) [Ratio] 16.8 % 12.0-14.8 [facility] Estimated glomerular filtrat ion rate (GFR) non- AmericanOrdered By: Brook Huddleston on 04-30-2022 GFR/1.73 sq M.predicted among non-blacks MDRD (S/P/Bld) [Vol rate/Area] 37 mL/Min [facility] Gamma globulin/Protein.total in 24 hour Urine by ElectrophoresisOrdered By: Brook Huddleston on 04-30-2022 Gamma globulin Elph (24H U) [Mass fraction] 23.7 % . [facility] Hematocrit Auto (Bld) [Volum e fraction]Ordered By: Brook Huddleston on 04-30-2022 Hematocrit (Bld) [Volume fraction] 31.6 % 38.8-50.0 [facility] IgA [Mass/volume] in Serum o r PlasmaOrdered By: Brook Huddleston on 04-30-2022 IgA [Mass/Vol] 190 mg/dL 61-437 [facility] IgG [Mass/volume] in Serum o r PlasmaOrdered By: Brook Huddleston on 04-30-2022 IgG [Mass/Vol] 912 mg/dL 603-1613 [facility] IgM [Mass/volume] in Serum o r PlasmaOrdered By: Brook Huddleston on 04-30-2022 IgM [Mass/Vol] 29 mg/dL 15-143 [facility] Comment on above: Performed at: [facility] [address] [id number] Director: Melchor Agrawal PhD, Phone: [phone] Immunofixation for UrineOrde red By: Brook Huddleston on 04-30-2022 Interpretation Immunofixation (U) [Interp] See comment . [facility] Comment on above: No monoclonality det ected.Performed at: [facility] [address] [id number] Director: Melchor Agrawal PhD, Phone: [phone] Immunoglobulin light chains. kappa.free [Mass/volume] in SerumOrdered By: Brook Huddleston on 04-30-2022 Immunoglobulin light chains.kappa.free (S) [Mass/Vol] 45.5 mg/L 3.3-19.4 [facility] Immunoglobulin light chains. kappa.free/Immunoglobulin light chains.lambda.free [MassOrdered By: Brook Huddleston on 04-30-2022 Immunoglobulin light chains.kappa.free/Immu noglobulin light chains.lambda.free (S) [Mass ratio] 1.63 0.26-1.65 [facility] Comment on above: Performed at: [address] [id number] Director: Melchor Agrawal PhD, Phone: [phone] Immunoglobulin light chains. lambda.free [Mass/volume] in Serum or PlasmaOrdered By: Brook Huddleston on 04-30-2022 Immunoglobulin light chains.lambda.free [Mass/Vol] 27.9 mg/L 5.7-26.3 [facility] Laboratory - CoagulationOrde red By: Brook Huddleston on 04-30-2022 PT Coag (PPP) [Time] 11.6 s 9.0-12.9 [facility] Laboratory - Hematology and Cell countsOrdered By: Brook Huddleston on 04-30-2022 Nucleated RBC/100 WBC (Bld) [Ratio] 0.1 % 0-0.5 [facility] Lactate dehydrogenase measur ement (enzymatic activity/volume)Ordered By: Brook Huddleston on 04-30-2022 LDH (Unsp spec) [Catalytic activity/Vol] 240 U/L 45-190 [facility] Lymphocytes Auto (Bld) [#/Vo l]Ordered By: Brook Huddleston on 04-30-2022 Lymphocytes (Bld) [#/Vol] 0.8 10*3/uL 1.00-4.8 [facility] Lymphocytes/100 WBC Auto (Bl d)Ordered By: Brook Huddleston on 04-30-2022 Lymphocytes/100 WBC (Bld) 24.5 % . [facility] MCH Auto (RBC) [Entitic mass ]Ordered By: Brook Huddleston on 04-30-2022 MCH (RBC) [Entitic mass] 38.2 pg 27.5-35.2 [facility] MCHC Auto (RBC) [Mass/Vol]Or dered By: Brook Huddleston on 04-30-2022 MCHC (RBC) [Mass/Vol] 33.8 g/dL 32.5-35.6 [facility] MCV Auto (RBC) [Entitic vol] Ordered By: Brook Huddleston on 04-30-2022 MCV (RBC) [Entitic vol] 113.0 fL 83.5-101 [facility] Macrocytes detectionOrdered By: Brook Huddleston on 04-30-2022 Macrocytes Ql (Bld) Moderate [facility] Monocytes Auto (Bld) [#/Vol] Ordered By: Brook Huddleston on 04-30-2022 Monocytes (Bld) [#/Vol] 0.3 10*3/uL 0.0-0.8 [facility] Monocytes/100 WBC Auto (Bld) Ordered By: Brook Huddleston on 04-30-2022 Monocytes/100 WBC (Bld) 9.0 % . [facility] Neutrophils Auto (Bld) [#/Vo l]Ordered By: Brook Huddleston on 04-30-2022 Neutrophils (Bld) [#/Vol] 1.9 10*3/uL 1.8-7.7 [facility] Neutrophils/100 WBC Auto (Bl d)Ordered By: Brook Huddleston on 04-30-2022 Neutrophils/100 WBC (Bld) 55.8 % . [facility] No Panel InformationOrdered By: Brook Huddleston on 04-30-2022 Urine Random Prot Electrophor Note See comment . [facility] Comment on above: Protein electrophore sis scan will follow via computer,mail, or monument letterer delivery. Estimated GFR () 44 mL/Min [facility] Comment on above: GFR estimated refere nce range: According to KDOQI guidelines, <60 ml/min/1.73m2 is sufficient to diagnose a patient with chronic kidney disease. Pharmacy Creatinine Clearance (Chem 40.70 [facility] Platelet Estimate Decreased Normal [facility] Platelet Morphology Comment Normal Normal [facility] Protein Electrophoresis M-Anselmo Not observed g/dL Not Observed [facility] Protein Electrophoresis Note See comment . [facility] Comment on above: Protein electrophore sis scan will follow via computer,mail, or monument letterer delivery. Serum Immunofixation See comment . [facility] Comment on above: No monoclonality det ected. Platelet mean volume Auto (B ld) [Entitic vol]Ordered By: Brook Huddleston on 04-30-2022 Platelet mean volume (Bld) [Entitic vol] 8.8 fL 6.6-10.1 [facility] Platelet poor plasma interna tional normalized ratio (INR) by coagulation assay (relatOrdered By: Brook Huddleston on 04-30-2022 INR Coag (PPP) [Relative time] 1.0 {INR} [facility] Comment on above: INR Therapeutic Rang e A) Pre- and Peroperative OAT started two weeks before surgery. NOT HIP SURGERY: 1.5 - 2.5 HIP SURGERY: 2 - 3 B) Primary and secondary prevention of venous THROMBOSIS: 2 - 3 C) Active venous thrombosis, pulmonary embolism and prevention of recurrent venous thrombosis: 2 - 3 D) Prevention of arterial thromboembolism including patients with mechanical heart valves: 3 - 4.5 INR Therapeutic Rang e A) Pre- and Peroperative OAT started two weeks before surgery. NOT HIP SURGERY: 1.5 - 2.5 HIP SURGERY: 2 - 3B) Primary and secondary prevention of venous THROMBOSIS: 2 - 3C) Active venous thrombosis, pulmonary embolismand prevention of recurrent venous thrombosis: 2 - 3D) Prevention of arterial thromboembolismincluding patients with mechanical heart valves: 3 - 4.5 Platelets Auto (Bld) [#/Vol] Ordered By: Brook Huddleston on 04-30-2022 Platelets (Bld) [#/Vol] 119 10*3/uL 150-450 [facility] Protein [Mass/volume] in Ser um or PlasmaOrdered By: Brook Huddleston on 04-30-2022 Protein [Mass/Vol] 6.2 g/dL 6.1-7.9 [facility] Protein [Mass/Vol] 6.4 g/dL 6.0-8.5 [facility] Protein [Mass/volume] in Uri neOrdered By: Brook Huddleston on 04-30-2022 Protein (U) [Mass/Vol] 12.1 mg/dL Not Estab. Fi [facility] Protein.monoclonal/Protein.t otal in 24 hour Urine by ElectrophoresisOrdered By: Brook Huddleston on 04-30-2022 Protein.monoclonal Elph (24H U) [Mass fraction] Not observed % Not Observed [facility] RBC Auto (Bld) [#/Vol]Ordere d By: Brook Huddleston on 04-30-2022 RBC (Bld) [#/Vol] 2.80 10*6/uL 3.90-5.60 [facility] RBC morphologyOrdered By: Black y Flaquito on 04-30-2022 RBC morphology finding Nom (Bld) N/A [facility] Serum globulin measurement b y calculation (mass/volume)Ordered By: Brook Huddleston on 04-30-2022 Globulin (S) [Mass/Vol] 2.7 g/dL 2.2-3.9 [facility] Serum or plasma alanine etienne otransferase measurement without P-5'-P (enzymatic activiOrdered By: Brook Huddleston on 04-30-2022 ALT No additional P-5'-P [Catalytic activity/Vol] 29 U/L [facility] Serum or plasma albumin/glob ulin mass ratioOrdered By: Brook Huddleston on 04-30-2022 Albumin/Globulin [Mass ratio] 1.3 {ratio} [facility] Albumin/Globulin [Mass ratio] 1.4 {ratio} 0.7-1.7 [facility] Serum or plasma alkaline tammy sphatase measurement (enzymatic activity/volume)Ordered By: Brook Huddleston on 04-30-2022 ALP [Catalytic activity/Vol] 80 U/L 32-92 [facility] Serum or plasma alpha 1 glob ulin measurement by electrophoresis (mass/volume)Ordered By: Brook Huddleston on 04-30-2022 Alpha 1 globulin Elph [Mass/Vol] 0.2 g/dL 0.0-0.4 [facility] Serum or plasma alpha 2 glob ulin measurement by electrophoresis (mass/volume)Ordered By: Brook Huddleston on 04-30-2022 Alpha 2 globulin Elph [Mass/Vol] 0.7 g/dL 0.4-1.0 [facility] Serum or plasma anion gap de terminationOrdered By: Brook Huddleston on 04-30-2022 Anion gap [Moles/Vol] 14.9 mmol/L 6.0-15.0 [facility] Serum or plasma aspartate am inotransferase measurement (enzymatic activity/volume)Ordered By: Brook Huddleston on 04-30-2022 AST [Catalytic activity/Vol] 39 U/L 10 [facility] Serum or plasma beta globuli n measurement by electrophoresis (mass/volume)Ordered By: Brook Huddleston on 04-30-2022 Beta globulin Elph [Mass/Vol] 1.0 g/dL 0.7-1.3 [facility] Serum or plasma calcium reese urement (mass/volume)Ordered By: Brook Huddleston on 04-30-2022 Calcium [Mass/Vol] 9.5 mg/dL 8.2-10.2 [facility] Serum or plasma chloride gurdeep surement (moles/volume)Ordered By: Brook Huddleston on 04-30-2022 Chloride [Moles/Vol] 102 mmol/L 95-114 [facility] Serum or plasma gamma globul in measurement by electrophoresis (mass/volume)Ordered By: Brook Huddleston on 04-30-2022 Gamma globulin Elph [Mass/Vol] 0.8 g/dL 0.4-1.8 [facility] Serum or plasma glucose reese urement (mass/volume)Ordered By: Brook Huddleston on 04-30-2022 Glucose [Mass/Vol] 262 mg/dL 70-100 [facility] Comment on above: ADA recommended refe rence range Random Glucose Reference Range is dependent on time and content of last meal. Glucose of more than 200 mg/dL in a nonstressed, ambulatory subject supports the diagnosis of Diabetes Mellitus. ADA recommended refe rence rangeRandom Glucose Reference Range is dependent on time and content of last meal. Glucose of more than 200 mg/dL in a nonstressed, ambulatory subject supports the diagnosis of Diabetes Mellitus. Serum or plasma potassium me asurement (moles/volume)Ordered By: Brook Huddleston on 04-30-2022 Potassium [Moles/Vol] 4.3 mmol/L 3.5-5.1 [facility] Serum or plasma sodium measu rement (moles/volume)Ordered By: Brook Huddleston on 04-30-2022 Sodium [Moles/Vol] 135 mmol/L 136-146 [facility] Serum or plasma total biliru bin measurement (mass/volume)Ordered By: Brook Huddleston on 04-30-2022 Bilirubin [Mass/Vol] 0.8 mg/dL 0.3-1.2 [facility] Serum or plasma total carbon dioxide measurement (moles/volume)Ordered By: Brook Huddleston on 04-30-2022 CO2 [Moles/Vol] 22.4 mmol/L 22.0-30.0 [facility] Serum or plasma urea nitroge n measurement (mass/volume)Ordered By: Brook Huddleston on 04-30-2022 Urea nitrogen [Mass/Vol] 18 mg/dL 9-23 [facility] Teardrop cell detectionOrder ed By: Brook Huddleston on 04-30-2022 Dacrocytes LM Ql (Bld) Slight [facility] Urine alpha 1 globulin/total protein by electrophoresisOrdered By: Brook Huddleston on 04-30-2022 Alpha 1 globulin Elph (U) [Mass fraction] 2.3 % . [facility] Urine alpha 2 globulin/total protein ratio by electrophoresisOrdered By: Brook Huddleston on 04-30-2022 Alpha 2 globulin Elph (U) [Mass fraction] 10.3 % . [facility] Urine beta globulin measurem ent by electrophoresis (mass/volume)Ordered By: Brook Huddleston on 04-30-2022 Beta globulin Elph (U) [Mass/Vol] 27.0 % . [facility] Urine culture routineOrdered By: Price Crain on 04-25-2022 Bacteria identified Cx Nom (U) No Growth 2 Days [facility] Automated erythrocytes count in urine sediment (number/area)Ordered By: Price Crain on 04-23-2022 RBC Auto (Urine sed) [#/Area] Innumerable [HPF] 0-4 [facility] Automated leukocytes count i n urine sediment (number/area)Ordered By: Price Crain on 04-23-2022 WBC Auto (Urine sed) [#/Area] Innumerable [HPF] 0-4 [facility] Bilirubin Test strip Ql (U)O rdered By: Price Crain on 04-23-2022 Bilirubin Ql (U) Negative Negative [facility] Body fluid albumin measureme nt (mass/volume)Ordered By: Price Crain on 04-23-2022 Albumin (Body fld) [Mass/Vol] 3.5 g/dL 3.2-5.5 [facility] Color Auto (U)Ordered By: Ivan Crain on 04-23-2022 Color (U) Yellow Yellow [facility] Creatinine [Mass/volume] in UrineOrdered By: Price Crain on 04-23-2022 Creatinine (U) [Mass/Vol] 120.5 mg/dL [facility] Comment on above: No reference range e stablished Creatinine and Glomerular fi ltration rate.predicted panel (S/P/Bld)Ordered By: Price Crain on 04-23-2022 Creatinine [Mass/Vol] 1.42 mg/dL 0.64-1.27 [facility] Estimated glomerular filtrat ion rate (GFR) non- AmericanOrdered By: Price Crain on 04-23-2022 GFR/1.73 sq M.predicted among non-blacks MDRD (S/P/Bld) [Vol rate/Area] 48 mL/Min [facility] Globulin Calc (S) [Mass/Vol] Ordered By: Price Crain on 04-23-2022 Globulin (S) [Mass/Vol] 2.5 g/dL [facility] Ketones Auto test strip (U) [Mass/Vol]Ordered By: Price Crain on 04-23-2022 Ketones (U) [Mass/Vol] Negative Negative [facility] Laboratory - UrinalysisOrder ed By: Price Crain on 04-23-2022 Hyaline casts LM Ql (Urine sed) None seen [LPF] 0-8 [facility] Nitrite Test strip Ql (U)Ord ered By: Price Crain on 04-23-2022 Nitrite Ql (U) Negative Negative [facility] No Panel InformationOrdered By: Price Crain on 04-23-2022 25-Hydroxy Vitamin D Total 43.1 ng/mL 30-100 [facility] Comment on above: VITAMIN D STATUS 25( [place])VITAMIN D RANGE (ng/mL) Deficient <20 Insufficient 20 to <30 Sufficient 30 to 100 Reference: Dieudonne MF,Brendon GUERRA, Estrella CARTER, et al. Evaluation,treatment, and prevention of vitamin D deficiency; an Endocrine Society clinical practice guideline. JCEM. 2010; 96(7):1911-30. VITAMIN D STATUS 25( [place])VITAMIN D RANGE (ng/mL) Deficient <20 Insufficient 20 to <30Sufficient 30 to 100Reference: Dieudonne MF,Brendon NC, Estrella CARTER, et al. Evaluation,treatment, and prevention of vitamin D deficiency; an Endocrine Society clinical practice guideline. JCEM. 2010; 96(7):1911-30. Estimated GFR () 58 mL/Min [facility] Comment on above: GFR estimated refere nce range: According to KDOQI guidelines, <60 ml/min/1.73m2 is sufficient to diagnose a patient with chronic kidney disease. Pharmacy Creatinine Clearance (Chem N/A [facility] Protein Auto test strip (U) [Mass/Vol]Ordered By: Price Crain on 04-23-2022 Protein (U) [Mass/Vol] 30 mg/dL Negative [facility] Protein [Mass/volume] in Ser um or PlasmaOrdered By: Price Crain on 04-23-2022 Protein [Mass/Vol] 6.0 g/dL 6.1-7.9 [facility] Protein [Mass/volume] in Uri neOrdered By: Price Crain on 04-23-2022 Protein (U) [Mass/Vol] 34 mg/dL 0-9 [facility] Serum cryoglobulin detection Ordered By: Price Crain on 04-23-2022 Cryoglobulin Ql (S) See comment None detected [facility] Comment on above: None Detected at 72 hours This test was developed and its performance characteristics determined by [employer]. It has not been cleared or approved by the Food and Drug Administration. Performed at: [facility] [employer] [id number] Hunting Guide: Melchor Agrawal PhD, Phone: [phone] None Detected at 72 hoursThis test was developed and its performance characteristicsdetermined by [employer]. It has not been cleared orapproved by the Food and Drug Administration.Performed at: [facility] [employer] [id number] Director: Melchor Agrawal PhD, Phone: [phone] Serum or plasma alanine etienne otransferase measurement without P-5'-P (enzymatic activiOrdered By: Price Crain on 04-23-2022 ALT No additional P-5'-P [Catalytic activity/Vol] 23 U/L 10-60 [facility] Serum or plasma albumin/glob ulin mass ratioOrdered By: Price Crain on 04-23-2022 Albumin/Globulin [Mass ratio] 1.4 {ratio} [facility] Serum or plasma alkaline tammy sphatase measurement (enzymatic activity/volume)Ordered By: Price Crain on 04-23-2022 ALP [Catalytic activity/Vol] 83 U/L 32-92 [facility] Serum or plasma anion gap de terminationOrdered By: Price Crain on 04-23-2022 Anion gap [Moles/Vol] 11.2 mmol/L 6.0-15.0 [facility] Serum or plasma aspartate am inotransferase measurement (enzymatic activity/volume)Ordered By: Price Crain on 04-23-2022 AST [Catalytic activity/Vol] 19 U/L 10-42 [facility] Serum or plasma calcium reese urement (mass/volume)Ordered By: Price Crain on 04-23-2022 Calcium [Mass/Vol] 8.9 mg/dL 8.2-10.2 [facility] Serum or plasma chloride gurdeep surement (moles/volume)Ordered By: Price Crain on 04-23-2022 Chloride [Moles/Vol] 105 mmol/L 95-114 [facility] Serum or plasma glucose reese urement (mass/volume)Ordered By: Price Crain on 04-23-2022 Glucose [Mass/Vol] 188 mg/dL 70-100 [facility] Comment on above: ADA recommended refe rence range Random Glucose Reference Range is dependent on time and content of last meal. Glucose of more than 200 mg/dL in a nonstressed, ambulatory subject supports the diagnosis of Diabetes Mellitus. ADA recommended refe rence rangeRandom Glucose Reference Range is dependent on time and content of last meal. Glucose of more than 200 mg/dL in a nonstressed, ambulatory subject supports the diagnosis of Diabetes Mellitus. Serum or plasma intact parat hyroid hormone measurement (mass/volume)Ordered By: Price Crain on 04-23-2022 Parathyrin.intact [Mass/Vol] 44.8 pg/mL [facility] Serum or plasma potassium me asurement (moles/volume)Ordered By: Price Crain on 04-23-2022 Potassium [Moles/Vol] 4.1 mmol/L 3.5-5.1 [facility] Serum or plasma sodium measu rement (moles/volume)Ordered By: Price Crain on 04-23-2022 Sodium [Moles/Vol] 136 mmol/L 136-146 [facility] Serum or plasma total biliru bin measurement (mass/volume)Ordered By: Price Crain on 04-23-2022 Bilirubin [Mass/Vol] 0.6 mg/dL 0.3-1.2 [facility] Serum or plasma total carbon dioxide measurement (moles/volume)Ordered By: Price Crain on 04-23-2022 CO2 [Moles/Vol] 23.9 mmol/L 22.0-30.0 [facility] Serum or plasma urea nitroge n measurement (mass/volume)Ordered By: Price Crain on 04-23-2022 Urea nitrogen [Mass/Vol] 17 mg/dL 9-23 [facility] Serum or plasma uric acid me asurement (mass/volume)Ordered By: Price Crain on 04-23-2022 Urate [Mass/Vol] 4.7 mg/dL 2.6-7.2 [facility] Specific gravity Auto test s trip (U) [Rel density]Ordered By: Price Crain on 04-23-2022 Specific gravity (U) [Rel density] 1.019 1.001-1.030 [facility] Squamous epithelial cells de tection in urine sediment by light microscopyOrdered By: Price Crain on 04-23-2022 Epithelial cells.squamous LM Ql (Urine sed) None seen [HPF] 0-2 [facility] Urine bacteria detection by automated methodOrdered By: Price Crain on 04-23-2022 Bacteria Auto Ql (U) None seen None Seen [facility] Urine clarity by refractomet ry automatedOrdered By: Price Crain on 04-23-2022 Clarity Refractometry automated (U) Cloudy Clear [facility] Urine glucose measurement by automated test strip (mass/volume)Ordered By: Price Crain on 04-23-2022 Glucose Auto test strip (U) [Mass/Vol] 500 mg/dL Normal [facility] Urine hemoglobin detection b y automated test stripOrdered By: Price Crain on 04-23-2022 Hemoglobin Auto test strip Ql (U) 3+ Negative [facility] Urine leukocyte esterase det ection by automated test stripOrdered By: Price Crain on 04-23-2022 Leukocyte esterase Auto test strip Ql (U) 3+ Negative [facility] Urine protein/creatinine rat ioOrdered By: Price Crain on 04-23-2022 Protein/Creatinine (U) [Ratio] 282 mg/g{Cre} 0-200 [facility] Urobilinogen Auto test strip (U) [Mass/Vol]Ordered By: Price Crain on 04-23-2022 Urobilinogen (U) [Mass/Vol] Normal mg/dL Normal [facility] pH Auto test strip (U)Ordere d By: Price Crain on 04-23-2022 pH (U) 5.5 [pH] 5.0-9.0 [facility] URINALYSISOrdered By: Jason moore on 04-18-2022 Bilirubin Ql (U) Negative (04/18/22 2:19 PM) Normal Negative [facility] [place] UA Auto SS Clarity (U) SL CLOUDY Invalid Interpretation Code [facility] UA Auto SS Color (U) STRAW Invalid Interpretation Code [facility] UA Auto SS Epithelial cells.squamous LM.HPF (Urine sed) [#/Area] 0-2 /HPF Normal 0-2/HPF [facility] [place] UA Auto SS Glucose Test strip (U) [Mass/Vol] 3+ *ABN* (04/18/22 2:19 PM) Invalid Interpretation Code Negative [facility] UA Auto SS Hemoglobin Ql (U) 1+ *ABN* (04/18/22 2:19 PM) Invalid Interpretation Code Negative [facility] UA Auto SS Ketones (U) [Mass/Vol] Negative (04/18/22 2:19 PM) Normal Negative [facility] UA Auto SS [place].plasma/[place] .RBC (Bld) [Mass ratio] 0-3 /HPF Normal 0-3/HPF [facility] [place] UA Auto SS Nitrite Ql (U) Negative (04/18/22 2:19 PM) Normal Negative [facility] [place] UA Auto SS pH (U) 6.5 *NA* (04/18/22 2:19 PM) Invalid Interpretation Code 5.0 - 9.0 [facility] [place] UA Auto SS Protein (U) [Mass/Vol] Negative (04/18/22 2:19 PM) Normal Negative [facility] [place] UA Auto SS Specific gravity (U) [Rel density] 1.015 *NA* (04/18/22 2:19 PM) Invalid Interpretation Code 1.005 - 1.030 [facility] [place] UA Auto SS UA Spec Desc Clean Catch (04/18/22 2:19 PM) Normal [facility] [place] UA Auto SS Urobilinogen Qn (U) [id number] {Caroline'U}/dL Normal 0.0 - 1.0 EU/dL [facility] [place] UA Auto SS WBC Auto Ql (U) Trace *ABN* (04/18/22 2:19 PM) Invalid Interpretation Code Negative [facility] [place] UA Auto SS WBC LM.HPF (Urine sed) [#/Area] 6-15 /HPF Invalid Interpretation Code 0-5/HPF [facility] [place] UA Auto SS Urine culture routineOrdered By: Helen Heath on 03-26-2022 Bacteria identified Cx Nom (U) No Growth 2 Days [facility] Basophils Auto (Bld) [#/Vol] Ordered By: Brook Huddleston on 03-20-2022 Basophils (Bld) [#/Vol] 0.0 10*3/uL 0.0-0.2 [facility] Basophils/100 WBC Auto (Bld) Ordered By: Brook Huddleston on 03-20-2022 Basophils/100 WBC (Bld) 0.8 % . [facility] Blood anisocytosis detection Ordered By: Brook Huddleston on 03-20-2022 Anisocytosis Ql (Bld) Marked Fir [facility] Blood hemoglobin measurement (mass/volume)Ordered By: Brook Huddleston on 03-20-2022 Hemoglobin (Bld) [Mass/Vol] 8.8 g/dL 13.0-17.0 [facility] Blood leukocytes automated c ount (number/volume)Ordered By: Brook Huddleston on 03-20-2022 WBC (Bld) [#/Vol] 3.6 10*3/uL 4.5-11.0 [facility] Eosinophils Auto (Bld) [#/Vo l]Ordered By: Brook Huddleston on 03-20-2022 Eosinophils (Bld) [#/Vol] 0.4 10*3/uL 0.0-0.45 [facility] Eosinophils/100 WBC Auto (Bl d)Ordered By: Brook Huddleston on 03-20-2022 Eosinophils/100 WBC (Bld) 11.5 % . [facility] Erythrocyte distribution wid th Auto (RBC) [Ratio]Ordered By: Brook Huddleston on 03-20-2022 Erythrocyte distribution width (RBC) [Ratio] 24.1 % 12.0-14.8 [facility] Hematocrit Auto (Bld) [Volum e fraction]Ordered By: Brook Huddleston on 03-20-2022 Hematocrit (Bld) [Volume fraction] 26.0 % 38.8-50.0 [facility] Laboratory - Hematology and Cell countsOrdered By: Brook Huddleston on 03-20-2022 Nucleated RBC/100 WBC (Bld) [Ratio] 0.0 % 0-0.5 [facility] Lymphocytes Auto (Bld) [#/Vo l]Ordered By: Brook Huddleston on 03-20-2022 Lymphocytes (Bld) [#/Vol] 0.7 10*3/uL 1.00-4.8 [facility] Lymphocytes/100 WBC Auto (Bl d)Ordered By: Brook Huddleston on 03-20-2022 Lymphocytes/100 WBC (Bld) 19.8 % . [facility] MCH Auto (RBC) [Entitic mass ]Ordered By: Brook Huddleston on 03-20-2022 MCH (RBC) [Entitic mass] 37.9 pg 27.5-35.2 [facility] MCHC Auto (RBC) [Mass/Vol]Or dered By: Brook Huddleston on 03-20-2022 MCHC (RBC) [Mass/Vol] 33.9 g/dL 32.5-35.6 [facility] MCV Auto (RBC) [Entitic vol] Ordered By: Brook Huddleston on 03-20-2022 MCV (RBC) [Entitic vol] 111.8 fL 83.5-101 [facility] Macrocytes detectionOrdered By: Brook Huddleston on 03-20-2022 Macrocytes Ql (Bld) Moderate [facility] Monocytes Auto (Bld) [#/Vol] Ordered By: Brook Huddleston on 03-20-2022 Monocytes (Bld) [#/Vol] 0.3 10*3/uL 0.0-0.8 [facility] Monocytes/100 WBC Auto (Bld) Ordered By: Brook Huddleston on 03-20-2022 Monocytes/100 WBC (Bld) 9.2 % . [facility] Neutrophils Auto (Bld) [#/Vo l]Ordered By: Brook Huddleston on 03-20-2022 Neutrophils (Bld) [#/Vol] 2.1 10*3/uL 1.8-7.7 [facility] Neutrophils/100 WBC Auto (Bl d)Ordered By: Brook Huddleston on 03-20-2022 Neutrophils/100 WBC (Bld) 58.7 % . [facility] No Panel InformationOrdered By: Brook Huddleston on 03-20-2022 Platelet Estimate Decreased Normal [facility] Platelet Morphology Comment Normal Normal [facility] Poikilocytosis Slight [facility] Schistocytes Rare [facility] Ovalocyte detectionOrdered B y: Brook Huddleston on 03-20-2022 Ovalocytes LM Ql (Bld) Slight [facility] Platelet mean volume Auto (B ld) [Entitic vol]Ordered By: Brook Huddleston on 03-20-2022 Platelet mean volume (Bld) [Entitic vol] 9.0 fL 6.6-10.1 [facility] Platelets Auto (Bld) [#/Vol] Ordered By: Brook Huddleston on 03-20-2022 Platelets (Bld) [#/Vol] 98 10*3/uL 150-450 [facility] RBC Auto (Bld) [#/Vol]Ordere d By: Brook Huddleston on 03-20-2022 RBC (Bld) [#/Vol] 2.32 10*6/uL 3.90-5.60 [facility] RBC morphologyOrdered By: Black Huddleston on 03-20-2022 RBC morphology finding Nom (Bld) N/A [facility] Hypochromia detectionOrdered By: Brook Huddleston on 03-03-2022 Hypochromia Ql (Bld) Slight [facility] Blood polychromasia detectio n by light microscopyOrdered By: Rosie Chew on 01-23-2022 Polychromasia LM Ql (Bld) Slight [facility] POINT OF CARE GLUCOSEon 05-3 Glucose [Mass/Vol] 190 mg/dL Critically high 74-106 [facility] Comment on above: Performed By: #### P OCGLUC #### [facility] [address] [address] [address] Lydia Merritt XR KUB 1 VIEWon 01-14-2022 XR KUB 1 VIEW EXAMINATION: XR KUB 1 VIEW HISTORY: Kidney stone COMPARISON: 12/05/2021 FINDINGS: KIDNEY/URETER - RIGHT: No visible renal or ureteral calcifications. KIDNEY/URETER - LEFT: Single 4 mm left nephrolith. The second calcification on the previous exam is not definitively seen PELVIS: No visible ureteral calcifications. Any visible calcifications favor phleboliths. BOWEL: No abnormal dilation or deviation. BONES: Moderate degenerative changes of the spine. Bilateral hip osteoarthropathy OTHER: Negative. No abnormal gaseous collections. IMPRESSION: Single 4 mm left nephrolith Electronically authenticated by: CHAD BURNETTE Date: 2022-01-14 11:58 Normal [facility] CBC AUTO DIFFon 01-09-2022 BASO # 0.0 103/ul Normal 0.0-0.1 [facility] Comment on above: Performed By: #### P TT, PT #### [facility] [address] [address] [address] Lydia Merritt Basophils/100 WBC (Bld) 0.3 % Normal 0.2-2.0 [facility] Comment on above: Performed By: #### P TT, PT #### [facility] [address] [address] [address] Lydia Merritt EO # 0.3 103/ul Normal 0.0-0.7 [facility] Comment on above: Performed By: #### P TT, PT #### [facility] [address] [place] [address] Dr. Ldyia Merritt Eosinophils/100 WBC (Bld) 8.6 % Critically high 0.9-7.0 [facility] Comment on above: Performed By: #### P TT, PT #### [facility] [address] [place] [address] Dr. Lydia Merritt Erythrocyte distribution width (RBC) [Ratio] 18.3 % Critically high 11.0-15.0 [facility] Comment on above: Performed By: #### P TT, PT #### [facility] [address] [place] [address] Dr. Lydia Merritt Hematocrit (Bld) [Volume fraction] 22.1 % Critically low 42.0-54.0 [facility] Comment on above: Result Comment: test repeated critical value verified Performed By: #### P TT, PT #### [facility] [address] [place] [address] Dr. Lydia Merritt Hemoglobin (Bld) [Mass/Vol] 7.4 g/dL Critically low 14.0-18.0 [facility] Comment on above: Performed By: #### P TT, PT #### [facility] [address] [place] [address] Dr. Lydia Merritt IG # 0.02 10e3/ul Normal 0.00-0.03 [facility] Comment on above: Performed By: #### P TT, PT #### [facility] [address] [place] [address] Dr. Lydia Merritt IG % 0.5 % Normal 0.0-0.5 [facility] Comment on above: Performed By: #### P TT, PT #### [facility] [address] [place] [address] Dr. Lydia Merritt LYMPH # 0.8 103/ul Critically low 1.2-3.8 [facility] Comment on above: Performed By: #### P TT, PT #### [facility] [address] [place] [address] Dr. Lydia Merritt Lymphocytes/100 WBC (Bld) 21.2 % Normal 20.5-60.0 [facility] Comment on above: Performed By: #### P TT, PT #### [facility] [address] [place] [address] Dr. Lydia Merritt MANUAL DIFF REQ NO Normal [facility] Comment on above: Performed By: #### P TT, PT #### [facility] [address] [place] [address] Dr. Lydia Merritt MCH (RBC) [Entitic mass] 37.2 pg Critically high 25.9-34.0 [facility] Comment on above: Performed By: #### P TT, PT #### [facility] [address] [place] [address] Dr. Lydia Merritt MCHC (RBC) [Mass/Vol] 33.5 g/dL Normal 29.9-35.2 [facility] Comment on above: Performed By: #### P TT, PT #### [facility] [address] [place] [address] Dr. Lydia Merritt MCV (RBC) [Entitic vol] 111.1 fL Critically high 80.0-94.0 [facility] Comment on above: Performed By: #### P TT, PT #### [facility] [address] [place] [address] Dr. Lydia Merritt MONO # 0.2 103/ul Critically low 0.3-0.8 [facility] Comment on above: Performed By: #### P TT, PT #### [facility] [address] [place] [address] Dr. Lydia Merritt Monocytes/100 WBC (Bld) 6.5 % Normal 1.7-12.0 [facility] Comment on above: Performed By: #### P TT, PT #### [facility] [address] [place] [address] Dr. Lydia Merritt NEUT # 2.3 103/ul Normal 1.4-6.5 [facility] Comment on above: Performed By: #### P TT, PT #### [facility] [address] [place] [address] Dr. Lydia Merritt Neutrophils/100 WBC (Bld) 62.9 % Normal 43.0-75.0 [facility] Comment on above: Performed By: #### P TT, PT #### [facility] [address] [address] [address] Lydia Merritt Platelet mean volume (Bld) [Entitic vol] 11.1 fL Normal 9.5-13.5 [facility] Comment on above: Performed By: #### P TT, PT #### [facility] [address] [place] [address] Dr. Lydia Merritt PLT 89 103/ul Critically low 150-450 [facility] Comment on above: Performed By: #### P TT, PT #### [facility] [address] [place] [address] Dr. Lydia Merritt RBC 1.99 106/ul Critically low 4.70-6.10 [facility] Comment on above: Performed By: #### P TT, PT #### [facility] [address] [place] [address] Dr. Lydia Merritt WBC 3.7 103/ul Critically low 4.0-11.0 [facility] Comment on above: Performed By: #### P TT, PT #### [facility] [address] [place] [address] Dr. Lydia Merritt PROF CHEM 8 (BAS METB)on Anion gap [Moles/Vol] 12.4 mmol/L Normal [facility] Comment on above: Performed By: #### B MP #### [facility] [address] [place] [address] Dr. Lydia Merritt Calcium [Mass/Vol] 9.0 mg/dL Normal 8.5-10.1 [facility] Comment on above: Performed By: #### B MP #### [facility] [address] [place] [address] Dr. Lydia Merrtit Chloride [Moles/Vol] 105 mmol/L Normal 98-107 [facility] Comment on above: Performed By: #### B MP #### [facility] [address] [address] [address] Lydia Merritt CO2 [Moles/Vol] 23.8 mmol/L Normal 21.0-32.0 [facility] Comment on above: Performed By: #### B MP #### [facility] [address] [place] [address] Dr. Lydia Merritt Creatinine [Mass/Vol] 1.41 mg/dL Critically high 0.70-1.30 [facility] Comment on above: Performed By: #### B MP #### [facility] [address] [address] [address] Lydia Merritt EGFR-AF CAMBODIAN 59 mL/min/1.73m2 Critically low >=60 [facility] Comment on above: Performed By: #### B MP #### [facility] [address] [place] [address] Dr. Lydia Merritt EGFR-NON AF CAMBODIAN 49 mL/min/1.73m2 Critically low >=60 [facility] Comment on above: Performed By: #### B MP #### [facility] [address] [place] [address] Dr. Lydia Merritt Glucose [Mass/Vol] 176 mg/dL Critically high 74-106 T [facility] Comment on above: Performed By: #### B MP #### [facility] [address] [place] [address] Dr. Lydia Merritt Potassium [Moles/Vol] 4.2 mmol/L Normal 3.5-5.1 [facility] Comment on above: Performed By: #### B MP #### [facility] [address] [place] [address] Dr. Lydia Merritt Sodium [Moles/Vol] 137 mmol/L Normal 136-145 [facility] Comment on above: Performed By: #### B MP #### [facility] [address] [address] [address] Lydia Merritt Urea nitrogen [Mass/Vol] 14.0 mg/dL Normal 7.0-18.0 [facility] Comment on above: Performed By: #### B MP #### [facility] [address] [address] [address] Lydia Merritt Urea nitrogen/Creatinine [Mass ratio] 9.9 mg/mg Normal [facility] Comment on above: Performed By: #### B MP #### [facility] [address] [place] [address] Dr. Lydia Merritt PROTIMEon 01-09-2022 INR Coag (PPP) [Relative time] 0.97 {INR} Normal [facility] Comment on above: Performed By: #### P TT, PT #### [facility] [address] [place] [address] Dr. Lydia Merritt INR GUIDELINES SEE BELOW Normal [facility] Comment on above: Result Comment: DILLON RED INR: 2.0 - 3.0 CONDITIONS NOT LISTED BELOW 2.5 - 3.5 FOR PROSTHETIC HEART VALVE REPLACEMENT 2.5 - 3.5 RECURRENT THROMBOSIS Performed By: #### P TT, PT #### [facility] [address] [place] [address] Dr. Lydia Merritt PT Coag (PPP) [Time] 10.5 s Normal 9.0-11.6 [facility] Comment on above: Performed By: #### P TT, PT #### [facility] [address] [place] [address] Dr. Lydia Merritt PTTon 01-09-2022 aPTT Coag (Bld) [Time] 29.5 s Normal 22.3-36.2 Th [facility] Comment on above: Performed By: #### P TT, PT #### [facility] [address] [place] [address] Dr. Lydia Merritt Serum or plasma erythropoiet in (EPO) measurement (units/volume)Ordered By: Brook Huddleston on 01-02-2022 Erythropoietin (EPO) Qn 547.7 mIU/mL 2.6-18.5 [facility] Comment on above: [employer] DxI 800 Immunoassay System Values obtained with different assay methods or kits cannot be used interchangeably. Results cannot be interpreted as absolute evidence of the presence or absence of malignant disease. Performed at: [address] [id number] Hunting Guide: Melchor Agrawal PhD, Phone: [phone] [employer]xI 800 Immunoassay SystemValues obtained with different assay methods or kits cannotbe used interchangeably. Results cannot be interpreted asabsolute evidence of the presence or absence of malignantdisease.Performed at: [facility] [employer] [id number] Director: Melchor Agrawal PhD, Phone: [phone] Albumin [Mass/volume] in Ser um or PlasmaOrdered By: Brook Huddleston on 12-26-2021 Albumin [Mass/Vol] 2.9 g/dL 3.2-5.5 [facility] Albumin [Mass/Vol] 2.8 g/dL 2.9-4.4 [facility] Albumin/Protein.total in 24 hour Urine by ElectrophoresisOrdered By: Brook Huddleston on 12-26-2021 Albumin Elph (24H U) [Mass fraction] 35.4 % . [facility] CT biopsyOrdered By: Brook Gomez se on 12-26-2021 Transferrin [Mass/Vol] 101 mg/dL 180-380 [facility] Creatinine and Glomerular fi ltration rate.predicted panel (S/P/Bld)Ordered By: Brook Huddleston on 12-26-2021 Creatinine [Mass/Vol] 1.47 mg/dL 0.64-1.27 [facility] Estimated glomerular filtrat ion rate (GFR) non- AmericanOrdered By: Brook Huddleston on 12-26-2021 GFR/1.73 sq M.predicted among non-blacks MDRD (S/P/Bld) [Vol rate/Area] 47 mL/Min [facility] Ferritin [Mass/volume] in Se rum or PlasmaOrdered By: Brook Huddleston on 12-26-2021 Ferritin [Mass/Vol] 663.4 ng/mL 23.9-336.2 [facility] Gamma globulin/Protein.total in 24 hour Urine by ElectrophoresisOrdered By: Brook Huddleston on 12-26-2021 Gamma globulin Elph (24H U) [Mass fraction] 21.5 % . [facility] Globulin Calc (S) [Mass/Vol] Ordered By: Brook Huddleston on 05-12-2022 Globulin (S) [Mass/Vol] 3.5 g/dL [facility] IgA [Mass/volume] in Serum o r PlasmaOrdered By: Brook Huddleston on 12-26-2021 IgA [Mass/Vol] 250 mg/dL 61-437 [facility] IgG [Mass/volume] in Serum o r PlasmaOrdered By: Brook Huddleston on 12-26-2021 IgG [Mass/Vol] 944 mg/dL 603-1613 [facility] IgM [Mass/volume] in Serum o r PlasmaOrdered By: Brook Huddleston on 12-26-2021 IgM [Mass/Vol] 33 mg/dL 15-143 [facility] Comment on above: Performed at: [employer] [address] [place] [address] Hunting Guide: Melchor Agrawal PhD, Phone: [phone] Performed at: [employer] [address] [id number] Director: Melchor Agrawal PhD, Phone: [phone] Immunofixation for UrineOrde red By: Brook Huddleston on 12-26-2021 Interpretation Immunofixation (U) [Interp] See comment . [facility] Comment on above: No monoclonality det ected. Performed at: [facility] [address] [id number] Hunting Guide: Melchor Agrawal PhD, Phone: [phone] No monoclonality det ected.Performed at: [facility] [address] [id number] Director: Melchor Agrawal PhD, Phone: [phone] Immunoglobulin light chains. kappa.free [Mass/volume] in SerumOrdered By: Brook Huddleston on 12-26-2021 Immunoglobulin light chains.kappa.free (S) [Mass/Vol] 38.9 mg/L 3.3-19.4 [facility] Immunoglobulin light chains. kappa.free/Immunoglobulin light chains.lambda.free [MassOrdered By: Brook Huddleston on 12-26-2021 Immunoglobulin light chains.kappa.free/Immu noglobulin light chains.lambda.free (S) [Mass ratio] 1.31 0.26-1.65 [facility] Comment on above: Performed at: [employer] [facility] [employer] [address] [id number] Hunting Guide: Melchor Agrawal PhD, Phone: [phone] Performed at: [employer] [address] [id number] Director: Melchor Agrawal PhD, Phone: [phone] Immunoglobulin light chains. lambda.free [Mass/volume] in Serum or PlasmaOrdered By: Brook Huddleston on 12-26-2021 Immunoglobulin light chains.lambda.free [Mass/Vol] 29.7 mg/L 5.7-26.3 [facility] Iron [Mass/volume] in Serum or PlasmaOrdered By: Brook Huddleston on 12-26-2021 Iron [Mass/Vol] 102 ug/dL 40-160 [facility] Iron binding capacity [Mass/ volume] in Serum or PlasmaOrdered By: Brook Huddleston on 12-26-2021 Iron binding capacity [Mass/Vol] 141 ug/dL 255-450 [facility] Iron saturation [Mass Fracti on] in Serum or PlasmaOrdered By: Brook Huddleston on 12-26-2021 Iron saturation [Mass fraction] 72.0 % 20-50 [facility] No Panel InformationOrdered By: Brook Huddleston on 12-26-2021 Estimated GFR () 56 mL/Min [facility] Comment on above: GFR estimated refere nce range: According to KDOQI guidelines, <60 ml/min/1.73m2 is sufficient to diagnose a patient with chronic kidney disease. Pharmacy Creatinine Clearance (Chem 47.88 [facility] Protein Electrophoresis M-Anselmo Not observed g/dL Not Observed [facility] Protein Electrophoresis Note See comment . [facility] Comment on above: Protein electrophore sis scan will follow via computer, mail, or monument letterer delivery. Performed at: [facility] [address] [id number] Hunting Guide: Melchor Agrawal PhD, Phone: [phone] Protein electrophore sis scan will follow via computer,mail, or monument letterer delivery.Performed at: [employer] [id number] Director: Melchor Agrawal PhD, Phone: [phone] Serum Immunofixation See comment . [facility] Comment on above: No monoclonality det ected. Urine Random Prot Electrophor Note See comment . [facility] Comment on above: Protein electrophore sis scan will follow via computer, mail, or monument letterer delivery. Protein electrophore sis scan will follow via computer,mail, or monument letterer delivery. Protein [Mass/volume] in Ser um or PlasmaOrdered By: Brook Huddleston on 12-26-2021 Protein [Mass/Vol] 6.4 g/dL 6.1-7.9 [facility] Protein [Mass/Vol] 6.0 g/dL 6.0-8.5 [facility] Protein [Mass/volume] in Uri neOrdered By: Brook Huddleston on 12-26-2021 Protein (U) [Mass/Vol] 45.3 mg/dL Not Estab. [facility] Protein.monoclonal/Protein.t otal in 24 hour Urine by ElectrophoresisOrdered By: Brook Huddleston on 12-26-2021 Protein.monoclonal Elph (24H U) [Mass fraction] Comment: % Not Observed [facility] Comment on above: UPE shows asymmetric al gamma. Serum globulin measurement ( mass/volume)Ordered By: Brook Huddleston on 12-26-2021 Globulin (S) [Mass/Vol] 3.2 g/dL 2.2-3.9 [facility] Serum or plasma alanine etienne otransferase measurement without P-5'-P (enzymatic activiOrdered By: Brook Huddleston on 12-26-2021 ALT No additional P-5'-P [Catalytic activity/Vol] 30 U/L 10-60 [facility] Serum or plasma albumin/glob ulin mass ratioOrdered By: Brook Huddleston on 12-26-2021 Albumin/Globulin [Mass ratio] 0.8 {ratio} [facility] Albumin/Globulin [Mass ratio] 0.9 {ratio} 0.7-1.7 [facility] Serum or plasma alkaline tammy sphatase measurement (enzymatic activity/volume)Ordered By: Brook Huddleston on 12-26-2021 ALP [Catalytic activity/Vol] 112 U/L 32-92 [facility] Serum or plasma alpha 1 glob ulin measurement by electrophoresis (mass/volume)Ordered By: Brook Huddleston on 12-26-2021 Alpha 1 globulin Elph [Mass/Vol] 0.5 g/dL 0.0-0.4 [facility] Serum or plasma alpha 2 glob ulin measurement by electrophoresis (mass/volume)Ordered By: Brook Huddleston on 12-26-2021 Alpha 2 globulin Elph [Mass/Vol] 1.0 g/dL 0.4-1.0 [facility] Serum or plasma aspartate am inotransferase measurement (enzymatic activity/volume)Ordered By: Brook Huddleston on 12-26-2021 AST [Catalytic activity/Vol] 23 U/L 10-42 [facility] Serum or plasma beta globuli n measurement by electrophoresis (mass/volume)Ordered By: Brook Huddleston on 12-26-2021 Beta globulin Elph [Mass/Vol] 0.9 g/dL 0.7-1.3 [facility] Serum or plasma calcium reese urement (mass/volume)Ordered By: Brook Huddleston on 12-26-2021 Calcium [Mass/Vol] 9.0 mg/dL 8.2-10.2 [facility] Serum or plasma chloride gurdeep surement (moles/volume)Ordered By: Brook Huddleston on 12-26-2021 Chloride [Moles/Vol] 103 mmol/L 95-114 [facility] Serum or plasma gamma globul in measurement by electrophoresis (mass/volume)Ordered By: Brook Huddleston on 12-26-2021 Gamma globulin Elph [Mass/Vol] 0.9 g/dL 0.4-1.8 [facility] Serum or plasma glucose reese urement (mass/volume)Ordered By: Brook Huddleston on 12-26-2021 Glucose [Mass/Vol] 84 mg/dL 70-100 [facility] Comment on above: ADA recommended refe rence range Random Glucose Reference Range is dependent on time and content of last meal. Glucose of more than 200 mg/dL in a nonstressed, ambulatory subject supports the diagnosis of Diabetes Mellitus. ADA recommended refe rence rangeRandom Glucose Reference Range is dependent on time and content of last meal. Glucose of more than 200 mg/dL in a nonstressed, ambulatory subject supports the diagnosis of Diabetes Mellitus. Serum or plasma homocysteine measurement (moles/volume)Ordered By: Brook Huddleston on 12-26-2021 Homocysteine [Moles/Vol] 17.5 umol/L 0.0-19.2 [facility] Comment on above: Performed at: [address] [id number] Hunting Guide: Melchor Agrawal PhD, Phone: [phone] Performed at: [employer] [facility] [employer] [id number] [place], [place] [id number] Director: Melchor Agrawal PhD, Phone: [phone] Serum or plasma methylmalona te measurement (moles/volume)Ordered By: Brook Huddleston on 12-26-2021 Methylmalonate [Moles/Vol] 230 nmol/L 0-378 [facility] Comment on above: This test was develo ped and its performance characteristics determined by [employer]. It has not been cleared or approved by the Food and Drug Administration. Performed at: [facility] [employer] [address] [id number] Hunting Guide: Aliya Curtis MD, Phone: [phone] This test was develo ped and its performance characteristicsdetermined by [employer]. It has not been cleared orapproved by the Food and Drug Administration.Performed at: [facility] [employer] [id number] Director: Aliya Curtis MD, Phone: [phone] Serum or plasma potassium me asurement (moles/volume)Ordered By: Brook Huddleston on 12-26-2021 Potassium [Moles/Vol] 3.9 mmol/L 3.5-5.1 [facility] Serum or plasma sodium measu rement (moles/volume)Ordered By: Brook Huddleston on 12-26-2021 Sodium [Moles/Vol] 135 mmol/L 136-146 [facility] Serum or plasma total biliru bin measurement (mass/volume)Ordered By: Brook Huddleston on 12-26-2021 Bilirubin [Mass/Vol] 0.5 mg/dL 0.3-1.2 [facility] Serum or plasma total carbon dioxide measurement (moles/volume)Ordered By: Brook Huddleston on 12-26-2021 CO2 [Moles/Vol] 20.5 mmol/L 22.0-30.0 [facility] Serum or plasma urea nitroge n measurement (mass/volume)Ordered By: Brook Flaquito on 12-26-2021 Urea nitrogen [Mass/Vol] 18 mg/dL 9-23 [facility] Urine alpha 1 globulin/total protein by electrophoresisOrdered By: Brook Huddleston on 12-26-2021 Alpha 1 globulin Elph (U) [Mass fraction] 5.4 % . [facility] Urine alpha 2 globulin/total protein ratio by electrophoresisOrdered By: Brook Huddleston on 12-26-2021 Alpha 2 globulin Elph (U) [Mass fraction] 13.7 % . [facility] Urine beta globulin measurem ent by electrophoresis (mass/volume)Ordered By: Brook Huddleston on 12-26-2021 Beta globulin Elph (U) [Mass/Vol] 23.9 % . [facility] BONE MARROW CHROMOSOME RALF Natalie 12-23-2021 BONE MARROW CHROM.ANALYSIS SEE BELOW Normal [facility] Comment on above: Result Comment: G enetics test results are available electronically in [facility] Acute and Community Record. Results will be sent on a separate report. In the AEMR, go to Community record -> click on Clinical documents -> go to Genetics Studies tab for results. Performed By: #### K NATY #### [facility] [id number] [place] [address] Clinic Note - Heme Oncon Clinic Note - Heme Onc Cancer History: Treatment Synopsis: Mr Mills was initially referred from Dr. 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 At diagnosis there was no bony lytic lesion on skeletal survey, bone marrow showed 70% light chain restricted plasma cells. Subsequently, he underwent Beth/V/D, and then Revlimid 25 mg () was added. Overall therapy was tolerated fine, had steroid induced DM needed insulin. B12 was low and it was replaced. Treatment History: Mr. 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 Hospital course notable for 8 of 8 blood cultures growing MSSA, ECHO negative for vegetation. He was discharged to [facility] for physical rehab & to complete treatment with Cefazolin 2gm IV every 8 hrs through 08/20/2020. History of Present Illness: ID Statement: PATSY MILLS is a 76 year old Male and Day of Transplant #[id number] Chief Complaint: Post transplant myeloma Interval History: He is having issues with renal stone and recurrent infection with renal failure which almost is resolved. Review of Systems: Review of Systems: Pertinent positives and negatives as per history of present illness. Remainder of 10 point review of systems is negative. Allergies and Intolerances: Allergies: No Known Allergies: Active Outpatient Medication Profile: * Patient Currently Takes Medications as of 12-Dec-2021 10:16 documented in Structured Notes potassium chloride 20 mEq oral tablet, extended release: Last Dose Taken: , 1 tab(s) orally once a day , Start Date: 29-Oct-2020 famotidine 20 mg oral tablet: Last Dose Taken: , 1 tab(s) orally once (at bedtime), Start Date: 15-Oct-2020 atorvastatin 20 mg oral tablet: Last Dose Taken: , 1 tab(s) orally once (at bedtime), Start Date: 13-Sep-2020 acyclovir 400 mg oral tablet: Last Dose Taken: , 1 tab(s) orally every 12 hours, Start Date: 13-Sep-2020 insulin lispro 100 units/mL injectable solution: Last Dose Taken: , international unit(s) injectable 3 times a day -Use as Directed 3 times a day (with meals) per Corrective Scale (Mild) , Start Date: 20-Aug-2020 Vitamin D3 2000 intl units (50 mcg) oral capsule: Last Dose Taken: , 1 cap(s) orally once a day Lantus Solostar Pen 100 units/mL subcutaneous solution: Last Dose Taken: , 12 unit(s) subcutaneous once a day (at bedtime) Revlimid 5 mg oral capsule: Last Dose Taken: , 1 cap(s) orally once a day aspirin 81 mg oral tablet: Last Dose Taken: , 1 tab(s) orally once a day metFORMIN 500 mg oral tablet: 1 tab(s) orally 2 times a day tamsulosin 0.4 mg oral capsule: 1 cap(s) orally 2 times a day furosemide 20 mg oral tablet: Last Dose Taken: , 1 tab(s) orally once a day, As Needed Medical History: Peripheral neuropathy: ICD-10: G62.9, Status: Active Hypertension: ICD-10: I10, Status: Active Steroid-induced hyperglycemia: ICD-10: R73.9, Status: Active Leukocytosis: ICD-10: D72.829, Status: Active Anemia: ICD-10: D64.9, Status: Active Hypokalemia: ICD-10: E87.6, Status: Active Dysgeusia: ICD-10: R43.2, Status: Active Pancytopenia: ICD-10: D61.818, Status: Active Staphylococcus aureus bacteremia with sepsis: ICD-10: A41.01, Status: Active Bacteremia due to Staphylococcus aureus: ICD-10: R78.81, Status: Active 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, Status: Active Encounter for chemotherapy management: ICD-10: Z51.11, Status: Active Social History: Social Substance History: Smoking Statusnever smoker (1) Tobacco Usedenies Alcohol Usedenies Drug Usedenies Additional History Family/friend support: Employment: Retired [employer] Work[employer] Living arrangements: Lives with Advanced directives: Living will and DPOA on file Spirituality: Yazdanism PMH: DM, HTN, RINA, Sleep Apnea PSH: HD catheter Family Hx: non contributory (1) Vitals and Measurements: Vitals: Temp: 36.2 HR: 76 RR: 16 BP: 173/65 SPO2%: 98 Measurements: HT(cm): 174 WT(kg): 91.9 BSA: 2.1 BMI: 30.3 Second Set of Vitals/Vitals Comment: pt refused to take off shoes for weight(2) Physical Exam: Constitutional: looks feeling good Eyes: normal eye exam, reactive pupils ENMT: normal oral cavity, no mass Head/Neck: No palpable lymph node, thryoid in the middle Respiratory/Thorax: breathing sounds are fine, Cardiovascular: No murmure or tenderness Gastrointestinal: No tenderness or organomegally Musculoskeletal: No mass or pain Extremiti (more content not included)... Normal [facility] Clinic Note - Intakeon 12-12 Clinic Note - Intake Patient Visit Information: Visit TypeFollow Up Visit Source of Informationpatient Vital Signs: Temp (degrees C)36.2 degrees C Temperatureskin Heart Rate (beats/min)76 beats per minute Respiration (breaths/min)16 breath per minute BP Systolic (mm Hg)Image has been removed. 173 mmHg BP Diastolic (mm Hg)65 mmHg BP Mean (mm Hg)101 mmHg Height in cm174 centimeter(s) Height Methodmeasured Heightstanding Weight in kg91.9 kilogram(s) Weightstanding BMI (kg/m2)30.3 kg/M2 BSA (m2)2.1 M2 Second Set of Vitals/Vitals Commentpt refused to take off shoes for weight Last 3 Weights & HeightsDate: Weight/Scale Type:Height: 28-Nov-2021 09:3292.4 kg 174 cm SpO2 (%)98 % SpO2 Patient Onroom air Pain Screening: Patient States Painno (0) Allergies: No Known Allergies: Active Outpatient Medication Profile: * Patient Currently Takes Medications as of 12-Dec-2021 10:16 documented in Structured Notes potassium chloride 20 mEq oral tablet, extended release: Last Dose Taken: , 1 tab(s) orally once a day , Start Date: 29-Oct-2020 famotidine 20 mg oral tablet: Last Dose Taken: , 1 tab(s) orally once (at bedtime), Start Date: 15-Oct-2020 atorvastatin 20 mg oral tablet: Last Dose Taken: , 1 tab(s) orally once (at bedtime), Start Date: 13-Sep-2020 acyclovir 400 mg oral tablet: Last Dose Taken: , 1 tab(s) orally every 12 hours, Start Date: 13-Sep-2020 insulin lispro 100 units/mL injectable solution: Last Dose Taken: , international unit(s) injectable 3 times a day -Use as Directed 3 times a day (with meals) per Corrective Scale (Mild) , Start Date: 20-Aug-2020 Vitamin D3 2000 intl units (50 mcg) oral capsule: Last Dose Taken: , 1 cap(s) orally once a day Lantus Solostar Pen 100 units/mL subcutaneous solution: Last Dose Taken: , 12 unit(s) subcutaneous once a day (at bedtime) Revlimid 5 mg oral capsule: Last Dose Taken: , 1 cap(s) orally once a day aspirin 81 mg oral tablet: Last Dose Taken: , 1 tab(s) orally once a day metFORMIN 500 mg oral tablet: 1 tab(s) orally 2 times a day tamsulosin 0.4 mg oral capsule: 1 cap(s) orally 2 times a day furosemide 20 mg oral tablet: Last Dose Taken: , 1 tab(s) orally once a day, As Needed Notification: NotificationsAll annual screens currently due. Travel History: COVID-19 Screening Completedno exposure or symptoms Travel or ExposureNO travel to International locations in the past 30 days Falls: Have you fallen in the last 6 monthsno Do you have a fear of fallingno Do you feel you need assistanceno Is the patient using an assistive deviceno Violence: Are you or have you been threatened or abused physically,emotionally or sexually abused by anyoneno Do you feel UNSAFE going back to the place you are livingno Depression: Past 2 wks: [place] down, depressed or hopelessno Past 2 wks: [place] little interest/pleasure doing thingsno Any Thoughts of Harming Othersno Substance: How many times in the past year have you hd 5 or more drinks within 24 hours0 How many times in past year have you used recreational or prescription drugs for non-medical reasons0 Nutrition/Learning: In the past month, was there any day when you or anyone in your family went hungry because you didn't have enough foodno Primary LanguageEnglish Do you, or others today, need extra help due to problems with hearing,speaking, seeing, moving around or learningno Electronic Signatures: Esther Garcia (PCNA) (Signed 12-Dec-2021 10:16) Authored: Patient Visit Information, Vital Signs, Allergies, Outpatient Medication Profile, Notification, Travel History, Falls, Violence, Depression, Substance, Nutrition/Learning Last Updated: 12-Dec-2021 10:16 by Esther Garcia (PCNA) Normal [facility] SURF MARKERS >15,PATH REVon 12-03-2021 PATH REV. >15 MARKERS BEVERLY Normal [facility] Comment on above: Result Comment: By h er/his signature above, the Pathologist listed as making the final interpretation certifies that she/he has personally reviewed this case. Performed By: #### K ALFONSO #### [facility] [address] [place] [address] SURFACE MARKERS LOW GRADE PA NELon 12-03-2021 DIAGNOSIS SEE BELOW Normal [facility] Comment on above: Result Comment: No e vidence of plasma cell neoplasm. No definite immunophenotypic evidence of a lymphoproliferative disorder. Performed By: #### L GP #### [facility] [address] [place] [address] NK 19 % of Lymph Normal [facility] Comment on above: Performed By: #### L GP #### [facility] [address] [place] [address] NOTE SEE BELOW Normal [facility] Comment on above: Result Comment: Conchita martinez with separate surgical pathology report. Performed By: #### L GP #### [facility] [address] [place] [address] PROTEIN ELECTROPHORESIS,SERU 12-02-2021 INTERPRETATION NORMAL Normal [facility] Comment on above: Performed By: #### S PE2 #### [facility] [address] [place] [address] [facility] [address] [place] [address] SPE PATH REVIEWon 12-02-2021 PATH REVIEW-DOMINIC JAMISON Normal [facility] Comment on above: Result Comment: By h er/his signature above, the Pathologist listed as making the final interpretation certifies that she/he has personally reviewed this case. Performed By: #### P R12 #### [facility] [address] [place] [address] IMMUNOGLOBULINS (G,A,M)on IgM [Mass/Vol] 27 mg/dL Low 40 - 230 [facility] Comment on above: Result Comment: MONO CLONAL PROTEINS MAY CAUSE FALSELY LOW RESULTS IN THIS ASSAY. SERUM PROTEIN ELECTROPHORESIS SHOULD BE DONE THE FIRST TEST TO EVALUATE MONOCLONAL GAMMOPATHY. Performed By: #### I GS #### [facility] [address] [place] [address] KAPPA/LAMBDA FREE LIGHT Corbin WEISS 11-29-2021 FREE KAPPA LIGHT CHAINS,S 3.92 mg/dL High 0.33 - 1.94 [facility] Comment on above: Performed By: #### K ALFONSO #### [facility] [address] [place] [address] FREE KAPPA/LAMBDA RATIO,S 1.34 Normal 0.26 - 1.65 [facility] Comment on above: Result Comment: Unde tected antigen excess is a rare event but cannot be excluded. If these free light chain results do not agree with other clinical or laboratory findings, or if the sample is from a patient that has previously demonstrated antigen excess, the result must be checked by retesting at a higher sample dilution. Results should always be interpreted in conjunction with other laboratory tests and clinical evidence; any anomalies should be discussed with the testing laboratory. Performed By: #### K ALFONSO #### [facility] [address] [place] [address] FREE LAMBDA LIGHT CHAIN,S 2.92 mg/dL High 0.57 - 2.63 [facility] Comment on above: Performed By: #### K ALFONSO #### [facility] [address] [place] [address] PROTEIN ELECTROPHORESIS,SERU 11-29-2021 Albumin [Mass/Vol] 3.6 g/dL Normal 3.4 - 5.0 [facility] Comment on above: Performed By: #### S PE2 #### [facility] [address] [place] [address] [facility] [address] [place] [address] ALPHA 1 GLOBULIN 0.3 g/dL Normal 0.2 - 0.6 [facility] Comment on above: Performed By: #### S PE2 #### [facility] [address] [place] [address] [facility] [address] [place] [address] ALPHA 2 GLOBULIN 0.6 g/dL Normal 0.4 - 1.1 [facility] Comment on above: Performed By: #### S PE2 #### [facility] [address] [place] [address] [facility] [address] [place] [address] BETA GLOBULIN 0.7 g/dL Normal 0.5 - 1.2 [facility] Comment on above: Performed By: #### S PE2 #### [facility] [address] [place] [address] [facility] [address] [place] [address] GAMMA GLOBULIN 0.9 g/dL Normal 0.5 - 1.4 [facility] Comment on above: Performed By: #### S PE2 #### [facility] [address] [place] [address] [facility] [address] [place] [address] SURFACE MARKERS LOW GRADE PA NELon 11-29-2021 CD19 1 % of Lymph Normal [facility] Comment on above: Performed By: #### L GP #### [facility] [address] [place] [address] CD4 52 % of Lymph Normal [facility] Comment on above: Performed By: #### L GP #### [facility] [address] [place] [address] CD8 28 % of Lymph Normal [facility] Comment on above: Performed By: #### L GP #### [facility] [address] [place] [address] CELL COUNT 7.56 x10E9/L Normal [facility] Comment on above: Performed By: #### L GP #### [facility] [address] [place] [address] Granulocytes/100 WBC (Bld) 49 % Normal [facility] Comment on above: Performed By: #### L GP #### [facility] [address] [place] [address] Lymphocytes/100 WBC (Bld) 9 % Normal [facility] Comment on above: Performed By: #### L GP #### [facility] [address] [place] [address] Monocytes/100 WBC (Bld) 4 % Normal [facility] Comment on above: Performed By: #### L GP #### [facility] [address] [place] [address] NUMBER OF CELLS COLLECTED 100,000 per tube Normal [facility] Comment on above: Performed By: #### L GP #### [facility] [address] [place] [address] SPECIMEN VIABILITY Acceptable Normal [facility] Comment on above: Result Comment: Flow cytometry results should be interpreted in the context of morphology. Flow cytometry findings may be unreliable due to sampling issues, differential loss or recovery of cell populations ex vivo, or low viability. Performed By: #### L GP #### [facility] [address] [place] [address] AMB - Narrative Note Nursing -BMBx Nursing Noteon 11-28-2021 AMB - Narrative Note Nursing-BMBx Nursing Note Topic and Description: Topic: BMBx Nursing Note Description: Patient arrived to ASCT unit via self-ambulation for bone marrow biopsy accompanied by . He is alert and oriented x3, denies pain or any discomfort. Vital signs obtained. Blood drawn from outpatient lab. ROOFER ASSISTANT performed procedure. After biopsy, dressing checked is clean, dry and intact. Education provided and PI sheet given. No adverse reactions, no complaints and no assistance needed. Electronic Signatures: Violetta Bundy (EVY) (Signed 28-Nov-2021 11:37) Authored: Topic and Description Last Updated: 28-Nov-2021 11:37 by Violetta Bundy) Normal [facility] BETA 2 MICROGLOBULINon 11-28 BETA 2 MICROGLOBULIN 3.5 mg/L High 0.7 - 2.2 [facility] Comment on above: Performed By: #### B 2MIC #### [facility] [address] [place] [address] CBC AND DIFFERENTIALon 11-28 % AUTOMATED IMMATURE GRAN 0.0 % Normal 0.0 - 0.9 [facility] Comment on above: Result Comment: Yue ture Granulocyte Count (IG) includes promyelocytes, myelocytes and metamyelocytes but does not include bands. Percent differential counts (%) should be interpreted in the context of the absolute cell counts (cells/L). Performed By: #### P R12 #### [facility] [address] [place] [address] Basophils (Bld) [#/Vol] 0.02 10*3/uL Normal 0.00 - 0.10 [facility] Comment on above: Performed By: #### P R12 #### [facility] [address] [place] [address] Basophils/100 WBC (Bld) 0.9 % Normal 0.0 - 2.0 [facility] Comment on above: Performed By: #### P R12 #### [facility] [address] [place] [address] Eosinophils (Bld) [#/Vol] 0.26 10*3/uL Normal 0.00 - 0.40 [facility] Comment on above: Performed By: #### P R12 #### [place] [address] [place] [address] Eosinophils/100 WBC (Bld) 11.5 % Normal 0.0 - 6.0 [facility] Comment on above: Performed By: #### P R12 #### [facility] [address] [place] [address] Lymphocytes (Bld) [#/Vol] 0.58 10*3/uL Low 0.80 - 3.00 [facility] Comment on above: Performed By: #### P R12 #### [facility] [address] [place] [address] Lymphocytes/100 WBC (Bld) 25.7 % Normal 13.0 - 44.0 [facility] Comment on above: Performed By: #### P R12 #### [facility] [address] [place] [address] Monocytes (Bld) [#/Vol] 0.27 10*3/uL Normal 0.05 - 0.80 [facility] Comment on above: Performed By: #### P R12 #### [facility] [address] [place] [address] Monocytes/100 WBC (Bld) 11.9 % Normal 2.0 - 10.0 [facility] Comment on above: Performed By: #### P R12 #### [facility] [address] [place] [address] Neutrophils (Bld) [#/Vol] 1.13 10*3/uL Low 1.60 - 5.50 [facility] Comment on above: Performed By: #### P R12 #### [facility] [address] [place] [address] Neutrophils/100 WBC (Bld) 50.0 % Normal 40.0 - 80.0 [facility] Comment on above: Performed By: #### P R12 #### [facility] [address] [place] [address] Platelets (Bld) [#/Vol] 72 10*3/uL Low 150 - 450 [facility] Comment on above: Performed By: #### P R12 #### [facility] [address] [place] [address] Erythrocyte distribution width (RBC) [Ratio] 21.5 % High 11.5 - 14.5 [facility] Comment on above: Performed By: #### P R12 #### [facility] [address] [place] [address] Hematocrit (Bld) [Volume fraction] 25.3 % Low 41.0 - 52.0 [facility] Comment on above: Performed By: #### P R12 #### [facility] [address] [place] [address] Hemoglobin (Bld) [Mass/Vol] 8.6 g/dL Low 13.5 - 17.5 [facility] Comment on above: Performed By: #### P R12 #### [facility] [address] [place] [address] MCHC (RBC) [Mass/Vol] 34.0 g/dL Normal 32.0 - 36.0 [facility] Comment on above: Performed By: #### P R12 #### [facility] [address] [place] [address] MCV (RBC) [Entitic vol] 108 fL High 80 - 100 [facility] Comment on above: Performed By: #### P R12 #### [facility] [address] [place] [address] RBC 2.35 x10E12/L Low 4.50 - 5.90 [facility] Comment on above: Performed By: #### P R12 #### [facility] [address] [place] [address] WBC (Bld) [#/Vol] 2.3 10*3/uL Low 4.4 - 11.3 [facility] Comment on above: Performed By: #### P R12 #### [facility] [address] [place] [address] COMPREHENSIVE PANELon 2021 Albumin [Mass/Vol] 3.8 g/dL Normal 3.4 - 5.0 [facility] Comment on above: Performed By: #### C MP #### [facility] [address] [place] [address] ALP [Catalytic activity/Vol] 78 U/L Normal 33 - 136 [facility] Comment on above: Performed By: #### C MP #### [facility] [address] [place] [address] ALT [Catalytic activity/Vol] 18 U/L Normal 10 - 52 [facility] Comment on above: Result Comment: Gloria ents treated with Sulfasalazine may generate falsely decreased results for ALT. Performed By: #### C MP #### [facility] [address] [place] [address] Anion gap [Moles/Vol] 11 mmol/L Normal 10 - 20 [facility] Comment on above: Performed By: #### C MP #### [facility] [address] [place] [address] AST [Catalytic activity/Vol] 17 U/L Normal 9 - 39 [facility] Comment on above: Performed By: #### C MP #### [facility] [address] [place] [address] Bilirubin [Mass/Vol] 0.7 mg/dL Normal 0.0 - 1.2 [facility] Comment on above: Performed By: #### C MP #### [facility] [address] [place] [address] Calcium [Mass/Vol] 9.3 mg/dL Normal 8.6 - 10.3 [facility] Comment on above: Performed By: #### C MP #### [facility] [address] [place] [address] Chloride [Moles/Vol] 105 mmol/L Normal 98 - 107 [facility] Comment on above: Performed By: #### C MP #### [facility] [address] [place] [address] Creatinine [Mass/Vol] 1.14 mg/dL Normal 0.50 - 1.30 [facility] Comment on above: Performed By: #### C MP #### [facility] [address] [place] [address] GFR/1.73 sq M.predicted among non-blacks MDRD (S/P/Bld) [Vol rate/Area] 66 mL/min/{1.73_m2} Normal >90 [facility] Comment on above: Result Comment: CALC ULATIONS OF ESTIMATED GFR ARE PERFORMED USING THE 2020 CKD-EPI STUDY REFIT EQUATION WITHOUT THE RACE VARIABLE FOR THE IDMS-TRACEABLE CREATININE METHODS. https://jasn.asnjournals.org/content/early/ASN.87706 15824 Performed By: #### C MP #### [facility] [address] [place] [address] Glucose [Mass/Vol] 163 mg/dL High 74 - 99 [facility] Comment on above: Performed By: #### C MP #### [facility] [address] [place] [address] HCO3 (Bld) [Moles/Vol] 27 mmol/L Normal 21 - 32 [facility] Comment on above: Performed By: #### C MP #### [facility] [address] [place] [address] Potassium [Moles/Vol] 3.4 mmol/L Low 3.5 - 5.3 [facility] Comment on above: Performed By: #### C MP #### [facility] [address] [place] [address] Sodium [Moles/Vol] 140 mmol/L Normal 136 - 145 [facility] Comment on above: Performed By: #### C MP #### [facility] [address] [place] [address] Urea nitrogen [Mass/Vol] 14 mg/dL Normal 6 - 23 [facility] Comment on above: Performed By: #### C MP #### [facility] [address] [place] [address] Clinic Note - Heme Onc-Follo w Up Visiton 11-28-2021 Clinic Note - Heme Onc-Follow Up Visit Patient Visit Information: Visit Type: Follow Up Visit Cancer History: Treatment Synopsis: Mr Mills was initially referred from Dr. 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 76 years old male who presented with light chain nephropathy in February 2020, kappa was 1200 mg/dL, Cr: 11.2 (had normal Cr in 2011), Mspike 3.6 g/dL IgG [place], total IgG was 5312, underwent HDx3 for one and half month. At diagnosis there was no bony lytic lesion on skeletal survey, bone marrow showed 70% light chain restricted plasma cells. Subsequently, he underwent Beth/V/D, and then Revlimid 25 mg () was added. Overall therapy was tolerated fine, had steroid induced DM needed insulin. B12 was low and it was replaced. He achieved VGPR following Daratumumab/Velcade/De xamethasone/Revlimid. 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 Hospital course notable for 8 of 8 blood cultures growing MSSA, ECHO negative for vegetation. He was discharged to [facility] for physical rehab & to complete treatment with Cefazolin 2gm IV every 8 hrs through 08/20/2020. History of Present Illness: ID Statement: PATSY MILLS is a 76 year old Male and Day of Transplant #490 Chief Complaint: Post transplant myeloma Interval History: Mr. Mlils presents today (11/28/2021) to [facility] for follow up evaluation, labs, and bone marrow biopsy. 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 He continues to be on Revlimid 5 mg daily, Aspirin 81 mg daily. He has been following up with his local primary oncologist at [facility], Dr. Huddleston. T+490 today. Mr. Mills reports overall he is doing well. He does report recent urinary infections in August 2021 requiring two separate hospital stays. He was initially admitted 08/24-08/29/2021 with symptoms of a UTI that progressed to pyelonephritis and states he developed urosepsis. He was then admitted again 09/18/21-09/21/21 with concerns for hyperkalemia (K 7.3), dehydration, RINA (SCr 2.0). He also reports possible COVID infection (not tested) in July 2021 where he lost his sense of taste. States taste only returned about 3 weeks ago and his appetite has been better since then. States he is still working on regaining his strength, feels optimistic about the warmer weather so he can walk outside. Energy levels are low- he has required 2 units pRBCs on 10/31/21 at [facility]. No other transfusions since then. States over the last few months he has felt much more tired, difficult to get up and do things but is still trying to be active around the house doing projects. He denies any shortness of breath, no gross blood in stools, no light headedness though has noted light headedness in Sep 2021 when Hgb dropped the first time. On review of labs over the last few months brought in by patient's (mostly from [facility]), patient's blood counts have been downtrending. On 08/20/21: WBC 4.5, Hgb 12.7, Plts 177k. On 09/16/21: WBC 3.3, Hgb 9.3, Plts 138k. On 09/20/21: WBC 2.8, Hgb 7.3, Plts 88k, On 10/28/21: WBC 2.4, Hgb 6.9, Plts 49k. He received 2 units pRBCs on 10/31/21 and felt much better in regards to his fatigue. Review of Systems: Review of Systems: Pertinent positives and negatives as per history of present illness. Remainder of 10 point review of systems is negative. Allergies and Intolerances: Allergies: No Known Allergies: Active Outpatient Medication Profile: * Patient Currently Takes Medications as of 29-Oct-2020 12:40 documented in Structured Notes potassium chloride 20 mEq oral tablet, extended release: 1 tab(s) orally once a day , Start Date: 29-Oct-2020 famotidine 20 mg oral tablet: 1 tab(s) orally once (at bedtime), Start Date: 15-Oct-2020 atorvastatin 20 mg oral tablet: 1 tab(s) orally once (at bedtime), Start Date: 13-Sep-2020 acyclovir 400 mg oral tablet: 1 tab(s) orally every 12 hours, Start Date: 13-Sep-2020 insulin lispro 100 units/mL injectable solution: international unit(s) injectable 3 times a day -Use as Directed 3 times a day (with meals) per Corrective Scale (Mild) , Start Date: 20-Aug-2020 Vitamin D3 2000 intl units (50 mcg) oral capsule: 1 cap(s) orally once a day Lantus Solostar Pen 100 units/mL subcutaneous solution: 12 unit(s) subcutaneous once a day (at bedtime) Revlimid 5 mg oral capsule: Last Dose Taken: , 1 cap(s) orally once a day aspirin 81 mg oral tablet: Last Dose Taken: , 1 tab(s) orally once a day Medical History: Peripheral neuropathy: ICD-10: G62.9, Status: Active Hypertension: ICD-10: I10, Status: Active Steroid-induced hyperglycemia: ICD-10: R73.9, Status: Active Leukocytosis: ICD-10: D72.829, Status: Active Anemia: I (more content not included)... Normal [facility] Clinic Note - Intakeon 11-28 Clinic Note - Intake Patient Visit Information: Visit TypeNew Visit Source of Informationpatient Vital Signs: Temp (degrees C)36.6 degrees C Temperaturetympanic Heart Rate (beats/min)78 beats per minute Respiration (breaths/min)18 breath per minute BP Systolic (mm Hg)Image has been removed. 146 mmHg BP Diastolic (mm Hg)76 mmHg BP Mean (mm Hg)99 mmHg Height in cm174 centimeter(s) Height Methodmeasured Heightstanding Weight in kg92.4 kilogram(s) Weightstanding BMI (kg/m2)30.5 kg/M2 BSA (m2)2.11 M2 SpO2 (%)100 % SpO2 Patient Onroom air Allergies: No Known Allergies: Active Outpatient Medication Profile: * Patient Currently Takes Medications as of 29-Oct-2020 12:40 documented in Structured Notes gabapentin 100 mg oral capsule: 3 capsules in morning 2 capsules in afternoon 3 capsules at bedtime, Start Date: 01-Nov-2020 potassium chloride 20 mEq oral tablet, extended release: 1 tab(s) orally once a day , Start Date: 29-Oct-2020 famotidine 20 mg oral tablet: 1 tab(s) orally once (at bedtime), Start Date: 15-Oct-2020 furosemide 20 mg oral tablet: 1 tab(s) orally once a day , Start Date: 18-Sep-2020 traMADol 50 mg oral tablet: 0.5-1 tab(s) orally every 6 hours, As needed, Pain - Mod (4-6), Start Date: 13-Sep-2020 Ambien 5 mg oral tablet: 1 tab(s) orally once a day (at bedtime), As Needed for insomnia, Start Date: 13-Sep-2020 atorvastatin 20 mg oral tablet: 1 tab(s) orally once (at bedtime), Start Date: 13-Sep-2020 acyclovir 400 mg oral tablet: 1 tab(s) orally every 12 hours, Start Date: 13-Sep-2020 hydrALAZINE 25 mg oral tablet: 1 tab(s) orally 2 times a day , Start Date: 13-Sep-2020 Bactrim DS 800 mg-160 mg oral tablet: 1 tab(s) orally Thursday, Thursday, and Thursday , Start Date: 08-Sep-2020 occupational therapy: EVALUATE AND TREAT C90.00 Myeloma Weakness, Start Date: 06-Sep-2020 physical therapy: Evaluate and Treat C90.00 Myeloma. Weakness, Start Date: 06-Sep-2020 insulin lispro 100 units/mL injectable solution: international unit(s) injectable 3 times a day -Use as Directed 3 times a day (with meals) per Corrective Scale (Mild) , Start Date: 20-Aug-2020 Vitamin D3 2000 intl units (50 mcg) oral capsule: 1 cap(s) orally once a day Imodium 2 mg oral capsule: 1 cap(s) orally every 4 hours, As Needed Lantus Solostar Pen 100 units/mL subcutaneous solution: 12 unit(s) subcutaneous once a day (at bedtime) Notification: NotificationsAll annual screens currently due. Travel History: COVID-19 Screening Completedno exposure or symptoms Travel or ExposureNO travel to International locations in the past 30 days Falls: Have you fallen in the last 6 monthsno Do you have a fear of fallingno Do you feel you need assistanceno Is the patient using an assistive deviceyes Falls Band/Sticker Applied and Clinician Awareyes Altered Mobilityassistive device Altered Mental Statusno Unable/Unwilling to Follow Directionsno Lowage 65 or older Electronic Signatures: Martha Murcia (NURS STUD) (Signed 28-Nov-2021 09:42) Authored: Patient Visit Information, Vital Signs, Allergies, Outpatient Medication Profile, Notification, Travel History, Falls Violetta Bundy (EVY) (Signed 28-Nov-2021 11:15) Authored: Falls Co-Signer: Patient Visit Information, Vital Signs, Allergies, Outpatient Medication Profile, Notification, Travel History, Falls Last Updated: 28-Nov-2021 11:15 by Violetta Bundy (RN) Normal [facility] FLOW CYTOMETRY TESTon 2021 FLOW TEST ORDERED LOW GRADE PANEL Normal [facility] Comment on above: Performed By: #### F CTST #### [facility] [address] [place] [address] SOURCE BONE MARROW Normal [facility] Comment on above: Performed By: #### F CTST #### [facility] [address] [place] [address] Hold cultured cells for futu re analysison 11-28-2021 Hold cultured cells for future analysis Hold cultured cells for future analysis -CYTOGENETIC REPORT: [id number] ------- Patient: Patsy Mills Date of : 1945 Specimen: Bone Marrow Date received: 11/28/2021 Lab ID: [id number] Indication: Multiple Myeloma Report date: 12/05/2021 Test: Hold cultured cells for future analysis Method: Routine Level of resolution: 0 Clones analyzed: Cells counted: Cells karyotyped: Cells analyzed: No. of cultures: Results: Culture and hold per hematopathology. Per Hematopathology Protocol this specimen has been placed on culture and hold status. Cultured cells will be kept until 05/27/2022. Chromosome and FISH testing can be added to the specimen up to 180 days after receipt. Please contact the Genetics lab at [phone] for details. Final report signed by: Chris Marshall Ph.D., FACMG, FCCMG Test performed at: [address] [address] FAX: [phone] Website: [email or web address] Referred by: Shan Jaramillo M.D., Ph.D. Normal [facility] IMMUNOGLOBULINS (G,A,M)on IgA [Mass/Vol] 203 mg/dL Normal 70 - 400 [facility] Comment on above: Result Comment: MONO CLONAL PROTEINS MAY CAUSE FALSELY LOW RESULTS IN THIS ASSAY. SERUM PROTEIN ELECTROPHORESIS SHOULD BE DONE THE FIRST TEST TO EVALUATE MONOCLONAL GAMMOPATHY. Performed By: #### I GS #### [facility] [address] [place] [id number] IgG [Mass/Vol] 955 mg/dL Normal 700 - 1600 [facility] Comment on above: Result Comment: MONO CLONAL PROTEINS MAY CAUSE FALSELY LOW RESULTS IN THIS ASSAY. SERUM PROTEIN ELECTROPHORESIS SHOULD BE DONE THE FIRST TEST TO EVALUATE MONOCLONAL GAMMOPATHY. Performed By: #### I GS #### [facility] [address] [place] [address] LDHon 11-28-2021 LDH 150 U/L Normal 84 - 246 [facility] Comment on above: Performed By: #### L DH #### [facility] [address] [place] [address] PROTEIN ELECTROPHORESIS,SERU 11-28-2021 Protein [Mass/Vol] 6.1 g/dL Low 6.4 - 8.2 [facility] Comment on above: Performed By: #### S PE2 #### [facility] [address] [place] [address] [facility] [address] [place] [address] Performed By: #### C MP #### [facility] [address] [place] [address] RED CELL MORPHOLOGYon 2021 OVALOCYTES Few Normal [facility] Comment on above: Performed By: #### M ORP2 #### [facility] [address] [facility] [place] [address] POLYCHROMASIA Mild Normal [facility] Comment on above: Performed By: #### M ORP2 #### [facility] [address] [facility] [place] [address] RBC morphology finding Nom (Bld) See Below Normal [facility] Comment on above: Performed By: #### M ORP2 #### [facility] [address] [place] [address] SURFACE MARKERS LOW GRADE PA NELon 11-28-2021 METHOD SEE BELOW Normal [facility] Comment on above: Result Comment: This test is a multicolor, whole blood lysis assay. It was developed and its performance characteristics determined by the Department of Pathology, [facility], and has not been cleared or approved by the U.S. Food and Drug Administration. The laboratory is regulated under CLIA as qualified to perform high complexity testing. This test is used for clinical purposes. It should not be regarded as investigational or for research. Immunophenotypic analysis was performed using the following antibodies: CD45, CD71, CD13, CD200, CD14, HLADR, CD2, CD7, CD4, CD5, CD3, CD16, CD56, CD8, CD10, CD20, CD38, CD19, CD43, CD23, CD1c, CD25, CD180, CD11c, CD79b, [place], Lambda, IgD. Additional Antibodies: CD138, CD27 Performed By: #### L GP #### [facility] [address] [place] [id number] SPECIMEN SITE Bone Marrow Normal [facility] Comment on above: Performed By: #### L GP #### [facility] [address] [place] [id number] [facility] Surgical Pathology Depar tmenton 11-28-2021 [facility] Surgical Pathology Department Name PATSY MILLS Pathologist: SAFIA ROE JR, MD, PhD. Date of Procedure: 11/28/2021 Date Received: 11/28/2021 Date Reported 12/03/2021 Submitting Physician: QUIQUE HALL MD Location: [facility] Other External # FINAL DIAGNOSIS A AND B: BONE MARROW, ASPIRATE WITH CLOT AND CORE BIOPSY WITH TOUCH IMPRINT, LEFT ILIAC CREST: -- INADEQUATE SAMPLE FOR MORPHOLOGIC EVALUATION, SEE NOTE NOTE: Core biopsy and clot samples are devoid of marrow. Aspirate smear and touch prep are aspicular and hemodilute. Repeat biopsy may be considered if clinically indicated. Pending Genetic/Molecular testing per Hematopathology protocol: -Culture and hold The results will be reported separately. The gross and/or microscopic findings were reviewed in conjunction with pathology resident, Vicente Rice MD. Electronically Signed Out By SAFIA ROE JR, MD, PhD./LETTY By the signature on this report, the individual or group listed as making the Final Interpretation/Diagnos is certifies that they have reviewed this case. Microscopic Description: CBC: WBC 2.3 x 10E9/L, RBC 2.35 x 10E12/L, Hgb 8.6 g/dl, Hct 25.3%, MCV 108 fL, RDW 21.5%, platelets 72 x 10E9/L. An automatic differential count reveals: polys 50%, lymphocytes 25.7%, monocytes 11.9%, eosinophils 11.5%, basophils 0.9%. PERIPHERAL SMEAR: Submitted Red cells: Macrocytic anemia White cells: Leukopenia Platelets: Thrombocytopenia ASPIRATE SMEAR: Submitted Specimen: Aspicular, hemodilute, paucicellular. Rare plasma cell noted. TOUCH PREP: Submitted Specimen: Hemodilute and paucicellular. ASPIRATE CLOT: Submitted Comments: Virtual absence of hematopoietic elements. Blood only CORE BIOPSY: Submitted Specimen: Inadequate. Comments: Specimen is composed of skeletal muscles, fibroadipose tissue and bone without marrow SPECIAL STAINS: Iron: Storage iron, no ring sideroblasts cannot be reliably evaluated. IMMUNOHISTOCHEMISTRY: Not performed. FLOW CYTOMETRY: Performed, see separate report. No clonal plasma cell population was identified Clinical History: Myeloma C90.00 Specimens Submitted As: A: BONE MARROW ASPIRATE L ILIAC B: BONE MARROW BIOPSY L ILIAC Gross Description: A: Received in formalin, labeled with the patient's name and hospital number and C , is an irregular fragment of blood clot measuring 2.0 x 1.0 x 0.2 cm. The specimen is submitted in toto in one cassette. RCC B: Received in B-plus fixative, labeled with the patient's name and hospital number, is a cylindrical segment of bone measuring 1.1 x 0.3 x 0.2 cm. The specimen is submitted in toto in one cassette following decalcification. [facility]/11/28/2021 The assays/tests were performed with appropriate positive and negative controls which stained appropriately. [facility] Department of Pathology [address] [place] [address] Normal [facility] Comment on above: Performed By: #### K NATY #### [address] [place] [address] Lactate dehydrogenase measur ement (enzymatic activity/volume)Ordered By: Brook Huddleston on 09-16-2021 LDH (Unsp spec) [Catalytic activity/Vol] 128 U/L 45-190 [facility] Serum or plasma fmdl-5-enakr globulin measurement (mass/volume)Ordered By: Brook Huddleston on 09-16-2021 Fomw-9-Vpyimxzezauhi [Mass/Vol] 3.9 ug/mL 0.6-2.4 [facility] Comment on above: Siemens Immulite 200 0 Immunochemiluminometric assay (ICMA) Values obtained with different assay methods or kits cannot be used interchangeably. Results cannot be interpreted as absolute evidence of the presence or absence of malignant disease. Performed at: [address] [id number] Hunting Guide: Aliya Curtis MD, Phone: [phone] Siemens Immulite 200 0 Immunochemiluminometric assay (ICMA)Values obtained with different assay methods or kits cannotbe used interchangeably. Results cannot be interpreted asabsolute evidence of the presence or absence of malignantdisease.Performed at: [address] [id number] Director: Aliya Curtis MD, Phone: [phone] Laboratory - Microbiology an d Antimicrobial susceptibilityon 07-11-2020 SARS-CoV-2 (COVID-19) RNA ERIN+probe Ql (Unsp spec) N/A [facility] Respiratory specimen 2019 no ml coronavirus RNA detection by probe and target amplifion 07-11-2020 SARS-CoV-2 (COVID-19) RNA ERIN+probe Ql (Resp) Not detected Not Detected [facility] Comment on above: This nucleic acid am plification test was developed and its performance characteristics determined by [employer]. Nucleic acid amplification tests include PCR and TMA. This test has not been FDA cleared or approved. This test has been authorized by FDA under an Emergency Use Authorization (EUA). This test is only authorized for the duration of time the declaration that circumstances exist justifying the authorization of the emergency use of in vitro diagnostic tests for detection of SARS-CoV-2 virus and/or diagnosis of COVID-19 infection under section 564(b)(1) of the Act, 21 U.S.C. 360bbb-3(b) (1), unless the authorization is terminated or revoked sooner. When diagnostic testing is negative, the possibility of a false negative result should be considered in the context of a patient's recent exposures and the presence of clinical signs and symptoms consistent with COVID-19. An individual without symptoms of COVID-19 and who is not shedding SARS-CoV-2 virus would expect to have a negative (not detected) result in this assay. This nucleic acid am plification test was developed and itsperformance characteristics determined by [facility]. Nucleic acid amplification tests include PCRand TMA. This test has not been FDA cleared or approved.This test has been authorized by FDA under an Emergency UseAuthorization (EUA). This test is only authorized forthe duration of time the declaration that circumstancesexist justifying the authorization of the emergency use ofin vitro diagnostic tests for detection of SARS-CoV-2 virusand/or diagnosis of COVID-19 infection under (b)(1) of the Act, 21 U.S.C. 360bbb-3(b) (1), unless theauthorization is terminated or revoked sooner.When diagnostic testing is negative, the possibility of afalse negative result should be considered in the contextof a patient's recent exposures and the presence ofclinical signs and symptoms consistent with COVID-19. Anindividual without symptoms of COVID-19 and who is notshedding SARS-CoV-2 virus would expect to have a negative(not detected) result in this assay. Laboratory - Hematology and Cell countson 07-02-2020 WBC (Bld) [#/Vol] 8.6 10*3/uL 4.5-11.0 [facility] Laboratory - Chemistry and C hemistry - challengeon 06-04-2020 Magnesium [Mass/Vol] 2.1 mg/dL 1.6-2.6 [facility] No Panel Informationon 04-30 Methylmalonic Acid Comment See comment . [facility] Comment on above: This test was develo ped and its performance characteristics determined by [employer]. It has not been cleared or approved by the Food and Drug Administration. Performed at: [address] [id number] Hunting Guide: Aliya Curtis MD, Phone: [phone] This test was develo ped and its performance characteristicsdetermined by [facility]. It has not been cleared orapproved by the Food and Drug Administration.Performed at: [facility] [employer] [id number] Director: Aliya Curtis MD, Phone: [phone] Cholesterol [Mass/volume] in Serum or Plasmaon 03-19-2020 Cholesterol [Mass/Vol] 113 mg/dL 140-200 [facility] Comment on above: Chol less than 200 m g/dl low risk Chol 201-239 mg/dl borderline risk Chol 240 mg/dl and greater high risk Chol less than 200 m g/dl low riskChol 201-239 mg/dl borderline riskChol 240 mg/dl and greater high risk Cholesterol in LDL Calc [Mas s/Vol]on 03-19-2020 Cholesterol in LDL [Mass/Vol] 59 mg/dL 0-100 [facility] Comment on above: LDL ATP III CLASSIFI CATION LDL less than 100 mg/dL Optimal LDL 100-129 mg/dL Near or above optimal LDL 130-159 mg/dL Borderline high LDL 160-189 mg/dL High LDL greater than 189 mg/dL Very high LDL ATP III CLASSIFI CATIONLDL less than 100 mg/dL OptimalLDL 100-129 mg/dL Near or above optimalLDL 130-159 mg/dL Borderline highLDL 160-189 mg/dL HighLDL greater than 189 mg/dL Very high Cholesterol in VLDL Calc [Ma ss/Vol]on 03-19-2020 Cholesterol in VLDL [Mass/Vol] 29 mg/dL [facility] Glucose mean value [Mass/vol ume] in Blood Estimated from glycated hemoglobinon 03-19-2020 Average glucose Estimated from glycated hemoglobin (Bld) [Mass/Vol] 140 mg/dL [facility] Hemoglobin A1c percentageon 03-19-2020 HbA1c (Bld) [Mass fraction] 6.5 % 4.3-5.6 [facility] Comment on above: Increased risk for d iabetes: 5.7 - 6.4 diabetes: >6.4 glycemic control for adults with diabetes: <7.0 Increased risk for d iabetes: 5.7 - 6.4diabetes: >6.4glycemic control for adults with diabetes: <7.0 No Panel Informationon 03-19 Prostate Specific Antigen Total 2.280 ng/mL 0.000-4.000 [facility] Serum or plasma free prostat e specific antigen (PSA)/total PSA ratioon 03-19-2020 Free PSA/Total PSA [Mass fraction] 11.0 % [facility] Comment on above: Based on the work of Catalona et al.DALJIT. [id number]):[id number] the percent free PSA may be used to determine the relative risk of prostate cancer in individual men.The percent probability of prostate cancer by patient age for men with non-suspicious FLORIAN results and total PSa between 4 and 10 ng/ml is as follows: % Free PSA 50 - 64 yrs. 65 - 75 yrs. 0 - 10 56% 55% 10 - 15 24% 35% 15 - 20 17% 23% 20 - 25 10% 20% >25 5% 9% Based on the work of Catalona et al.DALJIT. [id number]):[id number] the percent free PSA may be used to determine the relative risk of prostate cancer in individual men.The percent probability of prostate cancer by patient age for men with non-suspicious FLORIAN results and total PSa between 4 and 10 ng/ml is as follows:% Free PSA 50 - 64 yrs. 65 - 75 yrs. 0 - 10 56% 55% 10 - 15 24% 35% 15 - 20 17% 23% 20 - 25 10% 20% >25 5% 9% Serum or plasma free prostat e specific antigen measurement (mass/volume)on 03-19-2020 Free PSA [Mass/Vol] 0.260 ng/mL [facility] Serum or plasma high density lipoprotein (HDL) cholesterol measurementon 03-19-2020 Cholesterol in HDL [Mass/Vol] 25 mg/dL 29-71 [facility] Comment on above: HDL CHOL ATP-III CLA SSIFICATION Cardiovascular Risk HDL > or equal to 60 mg/dL LOW HDL < 40 mg/dL HIGH HDL CHOL ATP-III CLA SSIFICATION Cardiovascular RiskHDL > or equal to 60 mg/dL LOWHDL < 40 mg/dL HIGH Serum or plasma total choles terol/high density lipoprotein (HDL) cholesterol mass fauzia 03-19-2020 Cholesterol.total/Chol esterol in HDL [Mass ratio] 4.5 {ratio} <5.0 [facility] TSH DL <= 0.005 mIU/L Qnon 0 03-19-2020 TSH Qn 0.22 m[IU]/L 0.45-5.33 [facility] Thyroxine (T4) free [Mass/vo lume] in Serum or Plasmaon 03-19-2020 Free T4 [Mass/Vol] 1.18 ng/dL 0.61-1.12 [facility] Triglyceride [Mass/volume] i n Serum or Plasmaon 03-19-2020 Triglyceride [Mass/Vol] 147 mg/dL 35-149 [facility] Comment on above: TRIG ATP III CLASSIF ICATION TRIG less than 150 mg/dL Normal TRIG 150-199 mg/dL Borderline high TRIG 200-500 mg/dL High TRIG greater than 500 mg/dL Very high Standard traceable to the Center for Disease Conrtrol and Prevention (CDC) test method. TRIG ATP III CLASSIF ICATIONTRIG less than 150 mg/dL NormalTRIG 150-199 mg/dL Borderline highTRIG 200-500 mg/dL High TRIG greater than 500 mg/dL Very highStandard traceable to the Center for Disease Conrtrol and Prevention (CDC) test method. Teardrop cell detectionon Dacrocytes LM Ql (Bld) [facility] Vital Signs Date Time Vital Sign Value Performing Clinician Facility 07-22-2023 09:17-0500 Blood Pressure Location Vesna Lue [facility] 07-22-2023 09:17-0500 Diastolic blood pressure 84 mm[Hg] Vesna Lue [facility] 07-22-2023 09:17-0500 Heart rate 74 /min Vesna Lue [facility] 07-22-2023 09:17-0500 Systolic blood pressure 128 mm[Hg] Vesna Lue [facility] 05-28-2023 13:35-0400 Body temperature 97.8 [degF] MD Helen Heath Work Phone: [facility] 05-28-2023 13:35-0400 Body weight 97.06 kg MD Helen Heath Work Phone: [facility] 05-28-2023 13:35-0400 Diastolic blood pressure 72 mm[Hg] MD Helen Heath Work Phone: [facility] 05-28-2023 13:35-0400 Heart rate 85 /min MD Helen Heath Work Phone: [facility] 05-28-2023 13:35-0400 Respiratory rate 16 /min MD Helen Heath Work Phone: [facility] 05-28-2023 13:35-0400 SaO2% (BldA) [Mass fraction] 99 % MD Helen Heath Work Phone: [facility] 05-28-2023 13:35-0400 Systolic blood pressure 129 mm[Hg] MD Helen Heath Work Phone: [facility] 02-13-2023 08:57-0400 Blood Pressure Location Vesna Lue [facility] 02-13-2023 08:57-0400 Diastolic blood pressure 83 mm[Hg] Vesna Lue [facility] 02-13-2023 08:57-0400 Heart rate 67 /min Vesna Lue [facility] 02-13-2023 08:57-0400 Systolic blood pressure 166 mm[Hg] Vesna Lue [facility] 02-11-2023 12:28-0400 Body height 175.3 cm Pacc 2 Work Phone: [facility] 02-11-2023 12:28-0400 Body temperature 97.7 [degF] Pacc 2 Work Phone: [facility] 02-11-2023 12:28-0400 Body weight 97.98 kg Pacc 2 Work Phone: [facility] 02-11-2023 12:28-0400 Diastolic blood pressure 52 mm[Hg] Pacc 2 Work Phone: [facility] 02-11-2023 12:28-0400 Heart rate 66 /min Pacc 2 Work Phone: [facility] 02-11-2023 12:28-0400 Respiratory rate 16 /min Pacc 2 Work Phone: [facility] 02-11-2023 12:28-0400 SaO2% (BldA) [Mass fraction] 100 % Pacc 2 Work Phone: [facility] 02-11-2023 12:28-0400 Systolic blood pressure 149 mm[Hg] Pacc 2 Work Phone: [facility] 01-22-2023 14:29-0400 Body temperature 97.8 [degF] MD Helen Heath Work Phone: [facility] 01-22-2023 14:29-0400 Body weight 109.31 kg MD Helen Heath Work Phone: [facility] 01-22-2023 14:29-0400 Diastolic blood pressure 80 mm[Hg] MD Helen Heath Work Phone: [facility] 01-22-2023 14:29-0400 Heart rate 68 /min MD Helen Heath Work Phone: [facility] 01-22-2023 14:29-0400 Respiratory rate 16 /min MD Helen Heath Work Phone: [facility] 01-22-2023 14:29-0400 SaO2% (BldA) [Mass fraction] 98 % MD Helen Heath Work Phone: [facility] 01-22-2023 14:29-0400 Systolic blood pressure 118 mm[Hg] MD Helen Heath Work Phone: [facility] 01-14-2023 14:20-0400 Body height 180.34 cm Price Fordrenea Other [facility] Other 01-14-2023 14:20-0400 Body mass index (BMI) [Ratio] 29.31 kg/m2 Price Crain Other [facility] Other 01-14-2023 14:20-0400 Body temperature 96.4 [degF] Price Crain Other [facility] Other 01-14-2023 14:20-0400 Body weight 95.35 kg Price Crain Other [facility] Other 01-14-2023 14:20-0400 Diastolic blood pressure 79 mm[Hg] Price Crain Other [facility] Other 01-14-2023 14:20-0400 Respiratory rate 20 /min Price Crain Other [facility] Other 01-14-2023 14:20-0400 SaO2% (BldA) [Mass fraction] 98 % Price Crain Other [facility] Other 01-14-2023 14:20-0400 Systolic blood pressure 128 mm[Hg] Price Crain Other [employer] Other 12-19-2022 09:14-0400 Diastolic blood pressure 85 mm[Hg] Vesna Lue [facility] 12-19-2022 09:14-0400 Mean blood pressure 105 mm[Hg] Vesna Lue [facility] 12-19-2022 09:14-0400 Systolic blood pressure 145 mm[Hg] Vesna Lue [facility] 12-19-2022 08:58-0400 Blood Pressure Location Vesna Lue [facility] 12-19-2022 08:58-0400 Diastolic blood pressure 92 mm[Hg] Vesna Lue [facility] 12-19-2022 08:58-0400 Heart rate 81 /min Vesna Lue [facility] 12-19-2022 08:58-0400 Systolic blood pressure 150 mm[Hg] Vesna Lue [facility] 12-05-2022 11:12-0400 Blood Pressure Location Vesna Lue [facility] 12-05-2022 11:12-0400 Diastolic blood pressure 68 mm[Hg] Vesna Lue [facility] 12-05-2022 11:12-0400 Heart rate 70 /min Vesna Lue [facility] 12-05-2022 11:12-0400 Systolic blood pressure 135 mm[Hg] Vesna Lue [facility] 11-03-2022 12:47-0400 Blood Pressure Location Vesna Lue [facility] 11-03-2022 12:47-0400 Diastolic blood pressure 89 mm[Hg] Vesna Lue [facility] 11-03-2022 12:47-0400 Heart rate 77 /min Vesna Lue [facility] 11-03-2022 12:47-0400 Systolic blood pressure 165 mm[Hg] Vesna Lue [facility] 10-16-2022 10:26-0500 Blood Pressure Location Vesna Lue [facility] 10-16-2022 10:26-0500 Diastolic blood pressure 70 mm[Hg] Vesna Lue [facility] 10-16-2022 10:26-0500 Heart rate 82 /min Vesna Lue [facility] 10-16-2022 10:26-0500 Respiratory rate 16 /min Vesna Lue [facility] 10-16-2022 10:26-0500 Systolic blood pressure 141 mm[Hg] Vesna Lue [facility] 09-03-2022 08:47-0500 Body temperature 97.9 [degF] MD Helen Heath Work Phone: [facility] 09-03-2022 08:47-0500 Body weight 91.8 kg MD Helen Heath Work Phone: [facility] 09-03-2022 08:47-0500 Diastolic blood pressure 69 mm[Hg] MD Helen Heath Work Phone: [facility] 09-03-2022 08:47-0500 Heart rate 98 /min MD Helen Heath Work Phone: [facility] 09-03-2022 08:47-0500 Respiratory rate 16 /min MD Helen Heath Work Phone: [facility] 09-03-2022 08:47-0500 SaO2% (BldA) [Mass fraction] 99 % MD Helen Heath Work Phone: [facility] 09-03-2022 08:47-0500 Systolic blood pressure 156 mm[Hg] MD Helen Heath Work Phone: [facility] 07-28-2022 10:14-0500 Body temperature 97.8 [degF] MD Helen Heath Work Phone: [facility] 07-28-2022 10:14-0500 Body weight 90.2 kg MD Helen Heath Work Phone: [facility] 07-28-2022 10:14-0500 Diastolic blood pressure 81 mm[Hg] MD Helen Heath Work Phone: [facility] 07-28-2022 10:14-0500 Heart rate 77 /min MD Helen Heath Work Phone: [facility] 07-28-2022 10:14-0500 Respiratory rate 16 /min MD Helen Heath Work Phone: [facility] 07-28-2022 10:14-0500 SaO2% (BldA) [Mass fraction] 98 % MD Helen Heath Work Phone: [facility] 07-28-2022 10:14-0500 Systolic blood pressure 152 mm[Hg] MD Helen Heath Work Phone: [facility] 07-04-2022 13:38-0500 Diastolic blood pressure 79 mm[Hg] Vesna Lue [facility] 07-04-2022 13:38-0500 Heart rate 83 /min Vesna Lue [facility] 07-04-2022 13:38-0500 Mean blood pressure 101 mm[Hg] Vesna Lue [facility] 07-04-2022 13:38-0500 Systolic blood pressure 144 mm[Hg] Vesna Lue [facility] 06-27-2022 10:17-0500 Body temperature 97.8 [degF] MD Helen Heath Work Phone: [facility] 06-27-2022 10:17-0500 Body weight 89.81 kg MD Helen Heath Work Phone: [facility] 06-27-2022 10:17-0500 Diastolic blood pressure 82 mm[Hg] MD Helen Heath Work Phone: [facility] 06-27-2022 10:17-0500 Heart rate 52 /min MD Helen Heath Work Phone: [facility] 06-27-2022 10:17-0500 Respiratory rate 16 /min MD Helen Heath Work Phone: [facility] 06-27-2022 10:17-0500 SaO2% (BldA) [Mass fraction] 98 % MD Helen Heath Work Phone: [facility] 06-27-2022 10:17-0500 Systolic blood pressure 140 mm[Hg] MD Helen Heath Work Phone: [facility] 06-04-2022 10:59-0400 Blood Pressure Location Vesna Lue [facility] 06-04-2022 10:59-0400 Diastolic blood pressure 74 mm[Hg] Vesna Lue [facility] 06-04-2022 10:59-0400 Heart rate 68 /min Vesna Lue [facility] 06-04-2022 10:59-0400 Respiratory rate 16 /min Vesna Lue [facility] 06-04-2022 10:59-0400 Systolic blood pressure 130 mm[Hg] Vesna Cortez [facility] 05-23-2022 11:13-0400 Body temperature 97.8 [degF] PHYSICIAN NO [facility] 05-23-2022 11:13-0400 Body weight 98.42 kg PHYSICIAN NO [facility] 05-23-2022 11:13-0400 Diastolic blood pressure 60 mm[Hg] PHYSICIAN NO [facility] 05-23-2022 11:13-0400 Heart rate 78 /min PHYSICIAN NO [facility] 05-23-2022 11:13-0400 Respiratory rate 18 /min PHYSICIAN NO [facility] 05-23-2022 11:13-0400 SaO2% (BldA) [Mass fraction] 98 % PHYSICIAN NO [facility] 05-23-2022 11:13-0400 Systolic blood pressure 164 mm[Hg] PHYSICIAN NO [facility] 04-30-2022 12:10-0400 Diastolic blood pressure 71 mm[Hg] MD Helen Heath Work Phone: [facility] 04-30-2022 12:10-0400 Heart rate 66 /min MD Helen Heath Work Phone: [facility] 04-30-2022 12:10-0400 Respiratory rate 16 /min MD Helen Heath Work Phone: [facility] 04-30-2022 12:10-0400 SaO2% (BldA) [Mass fraction] 97 % MD Helen Heath Work Phone: [facility] 04-30-2022 12:10-0400 Systolic blood pressure 128 mm[Hg] MD Helen Heath Work Phone: [facility] 04-30-2022 09:30-0400 Body height 180.34 cm MD Helen Heath Work Phone: [facility] 04-30-2022 09:30-0400 Body weight 97.52 kg MD Helen Heath Work Phone: [facility] 02-05-2022 11:50-0400 Body temperature 97.7 [degF] MD Helen Heath Work Phone: [facility] 02-05-2022 11:50-0400 Body weight 92.98 kg MD Helen Heath Work Phone: [facility] 02-05-2022 11:50-0400 Diastolic blood pressure 71 mm[Hg] MD Helen Heath Work Phone: [facility] 02-05-2022 11:50-0400 Heart rate 87 /min MD Helen Heath Work Phone: [facility] 02-05-2022 11:50-0400 Respiratory rate 16 /min MD Helen Heath Work Phone: [facility] 02-05-2022 11:50-0400 SaO2% (BldA) [Mass fraction] 99 % MD Helen Heath Work Phone: [facility] 02-05-2022 11:50-0400 Systolic blood pressure 144 mm[Hg] MD Helen Heath Work Phone: [facility] 01-28-2022 08:48-0400 Blood Pressure Location Patsy Seals Jr. [facility] 01-28-2022 08:48-0400 Diastolic blood pressure 85 mm[Hg] Patsy Seals Jr. [facility] 01-28-2022 08:48-0400 Heart rate 78 /min Patsy Seals Jr. [facility] 01-28-2022 08:48-0400 Respiratory rate 16 /min Patsy Seals Jr. [facility] 01-28-2022 08:48-0400 Systolic blood pressure 164 mm[Hg] Patsy Seals Jr. [facility] 12-10-2021 10:38-0400 Blood Pressure Location Patsy Seals Jr. [facility] 12-10-2021 10:38-0400 Diastolic blood pressure 87 mm[Hg] Patsy Seals Jr. [facility] 12-10-2021 10:38-0400 Heart rate 79 /min Patsy Seals Jr. [facility] 12-10-2021 10:38-0400 Systolic blood pressure 142 mm[Hg] Patsy Seals Jr. [facility] 10-29-2021 16:00-0400 Body height 180.34 cm [employer] Other [employer] [facility] [employer] Other 10-29-2021 16:00-0400 Body mass index (BMI) [Ratio] 27.67 kg/m2 [employer] Other [employer] Other 10-29-2021 16:00-0400 Body temperature 96.1 [degF] [employer] Other [employer] Other 10-29-2021 16:00-0400 Body weight 89.99 kg [employer] Other [employer] Other 10-29-2021 16:00-0400 Diastolic blood pressure 67 mm[Hg] [employer] Other [employer] Other 10-29-2021 16:00-0400 Respiratory rate 20 /min [employer] Other [employer] Other 10-29-2021 16:00-0400 SaO2% (BldA) [Mass fraction] 97 % [employer] Other [employer] Other 10-29-2021 16:00-0400 Systolic blood pressure 116 mm[Hg] [employer] Other [employer] Other 05-30-2021 14:41-0400 Body height 177.8 cm MD Helen Heath Work Phone: [facility] Encounters Encounter Date Encounter Type Care Provider Facility Start: 08-31-2023 End: 08-31-2023 Patient encounter procedure Jose BURROWS [facility] [place] Start: 08-27-2023 ambulatory Brook Flaquito Facility:[facility] Start: 08-11-2023 End: 08-12-2023 ambulatory Vesna Cortez Facility:[facility] Start: 08-11-2023 End: 08-11-2023 Lab Drop off Vesna Cortez [facility] Start: 08-11-2023 End: 08-11-2023 Patient encounter procedure Vesna Cortez [facility] Start: 07-22-2023 End: 07-23-2023 ambulatory Vesna M. Lue Facility:[facility] Start: 07-22-2023 End: 07-22-2023 Patient encounter procedure Vesna M. Lue [facility] Start: 07-14-2023 End: 07-14-2023 ambulatory Vesna M Lue Facility:[facility] Start: 07-14-2023 End: 07-14-2023 ambulatory MD Helen Heath Work Phone: [facility] Work Phone: Start: 07-14-2023 End: 07-14-2023 Patient encounter procedure MD Helen Heath Work Phone: [facility] [place] Work Phone: Start: 07-14-2023 Registered Recurring MD Inderjit Heath Work Phone: [facility] Work Phone: Start: 07-14-2023 ambulatory Vesna M. Lue Facility:[facility] Start: 07-02-2023 End: 07-03-2023 ambulatory Vesna M. Lue Facility:[facility] Start: 07-02-2023 End: 07-02-2023 Lab Drop off Vesna M. Lue [facility] Start: 06-23-2023 End: 06-23-2023 ambulatory Azrajinder Bakhous Facility:[facility] Start: 06-23-2023 End: 06-23-2023 Patient encounter procedure MD Helen Heath Work Phone: [facility] [place] Work Phone: Start: 06-10-2023 End: 06-11-2023 ambulatory Vesna M. Lue Facility:[id number] Start: 05-28-2023 End: 05-29-2023 ambulatory Vesna M. Lue Facility:[facility] Start: 05-28-2023 End: 05-28-2023 Lab Drop off Vesna Cortez [facility] Start: 05-28-2023 End: 05-28-2023 Patient encounter procedure Vesna Cortez [facility] [place] Start: 05-19-2023 End: 05-19-2023 ambulatory Vesna Cortez Facility:[facility] Start: 05-19-2023 End: 05-19-2023 ambulatory MD Helen Heath Work Phone: [facility] Work Phone: Start: 05-19-2023 End: 05-19-2023 Patient encounter procedure MD Helen Heath Work Phone: [facility] Work Phone: Start: 05-19-2023 Registered Recurring MD Inderjit Heath Work Phone: [facility] Work Phone: Start: 05-15-2023 End: 05-16-2023 ambulatory Vesna Cortez Facility:[facility] Start: 05-15-2023 End: 05-15-2023 Patient encounter procedure Vesna Cortez [facility] Start: 04-15-2023 End: 04-17-2023 ambulatory HELEN HEATH Facility:[facility] Start: 03-18-2023 ambulatory Vesna JanesChay Cortez Facility:[facility] Start: 03-05-2023 End: 03-05-2023 ambulatory DAISY MENDOZA Facility:[facility] Start: 02-25-2023 Refill Daisy kaur MD Work Phone: Urology Comment on above: Refill Request Start: 02-23-2023 End: 02-23-2023 ambulatory HELEN HEATH Facility:[facility] Start: 02-19-2023 End: 02-19-2023 ambulatory Helen Heath Facility:[facility] Start: 02-19-2023 Registered Recurring MD Inderjit Heath Work Phone: [facility] Work Phone: Start: 02-19-2023 End: 02-19-2023 ambulatory MD Helen Heath Work Phone: [facility] Work Phone: Start: 02-19-2023 End: 02-19-2023 Patient encounter procedure MD Helen Heath Work Phone: [facility] Work Phone: Start: 02-13-2023 End: 02-14-2023 ambulatory Vesna Cortez Facility:[facility] Start: 02-13-2023 End: 02-13-2023 Patient encounter procedure Vesna Cortez [facility] Start: 02-11-2023 Encounter for other preprocedural examination HELEN HEATH [facility] Start: 02-11-2023 End: 02-11-2023 Admission to [facility] Work Phone: [facility] Start: 02-11-2023 End: 02-11-2023 ambulatory [facility] Work Phone: Pre Anesthesia Comment on above: Pre-op evaluation (P rimary Dx); Hypertension, unspecified type; Hypercholesterolemia; Benign prostatic hyperplasia with urinary obstruction; Stage 3 chronic kidney disease, unspecified whether stage 3a or 3b CKD (HCC); Type 2 diabetes mellitus without complication, with long-term current use of insulin (HCC); Bone marrow transplant status (HCC); Prostate cancer (HCC); Iron deficiency anemia, unspecified iron deficiency anemia type; Rheumatoid arthritis, involving unspecified site, unspecified whether rheumatoid factor present (HCC) Start: 02-11-2023 End: 02-11-2023 Preprocedural examination done [facility] Work Phone: Pre Anesthesia Start: 01-23-2023 ambulatory Vesna JanesChay Rosasheena Facility:[facility] Start: 01-19-2023 End: 01-19-2023 ambulatory SAMIR APARICIO Facility:[facility] Start: 01-19-2023 End: 01-19-2023 ambulatory Samir Aparicio MD Work Phone: Urology Comment on above: Prostate cancer (HCC ) (Primary Dx); Acquired ureteral stricture; Neurogenic bladder; Benign prostatic hyperplasia with urinary obstruction Start: 01-19-2023 End: 01-19-2023 Telemedicine consultation with patient Samir Aparicio MD Work Phone: [facility] Start: 01-16-2023 End: 01-17-2023 ambulatory Vesna Rosasheena Facility:[facility] Start: 01-16-2023 End: 01-16-2023 Patient encounter procedure Vesna MarreroChay Cortez [facility] Start: 01-15-2023 ambulatory Vesna JanesChay Rosasheena Facility:[facility] Start: 01-14-2023 End: 01-14-2023 ambulatory Azrajinder Bakhous Other [employer] Other Start: 01-14-2023 Office outpatient vi sit 25 minutes Aziz Bakhous [facility] Start: 01-14-2023 Telephone encounter Aziz Bakhous [facility] Start: 01-07-2023 End: 01-07-2023 ambulatory DAISY MENDOZA Facility:[facility] Start: 01-05-2023 End: 01-05-2023 ambulatory Aziz Bakhous Facility:[facility] Start: 01-05-2023 End: 01-05-2023 Patient encounter procedure MD Helen Heath Work Phone: [facility] [place] Work Phone: Start: 12-19-2022 End: 12-20-2022 ambulatory Vesna Rosase Facility:[facility] Start: 12-19-2022 End: 12-19-2022 Patient encounter procedure Vesna Cortez [facility] Start: 12-17-2022 End: 12-17-2022 ambulatory Helen Heath Facility:[facility] Start: 12-17-2022 End: 12-17-2022 ambulatory MD Helen Heath Work Phone: [facility] Work Phone: Start: 12-17-2022 End: 12-17-2022 Patient encounter procedure MD Helen Heath Work Phone: [facility] [place] Work Phone: Start: 12-13-2022 Encounter for other preprocedural examination VESNA CORTEZ [facility] Start: 12-13-2022 Encounter for preprocedural laboratory examination VESNA ROSASE [facility] Start: 12-11-2022 Registered Recurring MD Inderjit Heath Work Phone: [facility] Work Phone: Start: 12-10-2022 End: 12-10-2022 ambulatory VESNA M LUE Facility: Start: 12-08-2022 End: 12-09-2022 ambulatory KATINA PATEL Facility:[facility] Start: 12-08-2022 End: 12-09-2022 Encounter for preprocedural laboratory examination KATINA PATEL Facility:[facility] Start: 12-05-2022 End: 12-06-2022 ambulatory Vesna MChay Lue Facility:[facility] [place] Start: 12-05-2022 End: 12-06-2022 ambulatory Vensa M. Lue Facility:[facility] Start: 12-05-2022 End: 12-05-2022 Patient encounter procedure Vesna Rosase [facility] Start: 12-01-2022 End: 12-01-2022 ambulatory Helen Heath Facility:[facility] Start: 12-01-2022 End: 12-01-2022 ambulatory MD Helen Heath Work Phone: [facility] Work Phone: Start: 12-01-2022 End: 12-01-2022 Patient encounter procedure MD Helen Heath Work Phone: [facility] [place] Work Phone: Start: 11-27-2022 Registered Recurring MD Inderjit Heath Work Phone: [facility] Work Phone: Start: 11-27-2022 End: 11-27-2022 ambulatory Helen Heath Facility:[facility] Start: 11-27-2022 End: 11-27-2022 ambulatory MD Helen Heath Work Phone: [facility] Work Phone: Start: 11-27-2022 End: 11-27-2022 Patient encounter procedure MD Helen Heath Work Phone: [facility] [place] Work Phone: Start: 11-21-2022 End: 11-22-2022 ambulatory Vesna Cortez Facility:[facility] Start: 11-17-2022 End: 11-17-2022 ambulatory Helen Heath Facility:[facility] Start: 11-17-2022 End: 11-17-2022 ambulatory MD Helen Heath Work Phone: [facility] Work Phone: Start: 11-17-2022 End: 11-17-2022 Patient encounter procedure MD Helen Heath Work Phone: [facility] [place] Work Phone: Start: 11-13-2022 ambulatory Vesna M. Lue Facility:[facility] Start: 11-13-2022 Registered Recurring MD Inderjit Heath Work Phone: [facility] Work Phone: Start: 11-11-2022 End: 11-11-2022 ambulatory Helen Heath Facility:[facility] Start: 11-11-2022 Registered Recurring MD Inderjit Heath Work Phone: [facility] Work Phone: Start: 11-11-2022 End: 11-11-2022 ambulatory MD Helen Heath Work Phone: [facility] Work Phone: Start: 11-11-2022 End: 11-11-2022 Patient encounter procedure MD Helen Heath Work Phone: [facility] [place] Work Phone: Start: 11-10-2022 End: 11-10-2022 ambulatory Helen Heath Facility:[facility] Start: 11-10-2022 End: 11-10-2022 Departed Referred MD Helen Heath Work Phone: [facility] [place] Work Phone: Start: 11-03-2022 End: 11-04-2022 ambulatory Vesna Claudia Rosase Facility:[facility] [place] Start: 11-03-2022 End: 11-04-2022 ambulatory Vesna M. Lue Facility:[facility] Start: 11-03-2022 End: 11-03-2022 Patient encounter procedure Vesna Cortez [facility] Start: 10-30-2022 End: 10-30-2022 ambulatory Helen Heath Facility:[facility] Start: 10-30-2022 End: 10-30-2022 Patient encounter procedure MD Helen Heath Work Phone: [facility] [place] Work Phone: Start: 10-30-2022 Registered Recurring MD Inderjit Heath Work Phone: [facility] Work Phone: Start: 10-30-2022 End: 10-30-2022 ambulatory Helen Heath Facility:[facility] Start: 10-30-2022 End: 10-30-2022 ambulatory MD Helen Heath Work Phone: [facility] Work Phone: Start: 10-30-2022 End: 10-30-2022 Patient encounter procedure MD Helen Heath Work Phone: [facility] [place] Work Phone: Start: 10-20-2022 End: 10-21-2022 ambulatory Vesna M. Lue Facility:[facility] [facility] Start: 10-16-2022 End: 10-17-2022 ambulatory Vesna M. Lue Facility:[facility] Start: 10-16-2022 End: 10-16-2022 Patient encounter procedure Vesna M. Lue [facility] Start: 10-14-2022 End: 10-14-2022 ambulatory Vesna M Lue Facility:[facility] Start: 10-14-2022 Registered Recurring MD Inderjit Heath Work Phone: [facility] Work Phone: Start: 10-14-2022 End: 10-14-2022 ambulatory MD Helen Heath Work Phone: [facility] Work Phone: Start: 10-14-2022 End: 10-14-2022 Patient encounter procedure MD Helen Heath Work Phone: [facility] [place] Work Phone: Start: 10-09-2022 ambulatory KEN HELTON Kymberly ty:[facility] Start: 10-09-2022 End: 10-10-2022 ambulatory Janae Serna Facility:[facility] [place] Start: 10-09-2022 End: 10-09-2022 Patient encounter procedure Janae Serna [facility] Start: 10-02-2022 End: 10-02-2022 ambulatory Vesna M Lue Facility:[facility] Start: 10-02-2022 End: 10-02-2022 ambulatory MD Helen Heath Work Phone: [facility] Work Phone: Start: 10-02-2022 End: 10-02-2022 Patient encounter procedure MD Helen Heath Work Phone: [facility] [place] Work Phone: Start: 10-01-2022 Registered Recurring MD Inderjit Heath Work Phone: [facility] Work Phone: Start: 09-23-2022 End: 09-23-2022 ambulatory Vesna M Lue Facility:[facility] Start: 09-23-2022 End: 09-23-2022 ambulatory MD Helen Heath Work Phone: [facility] Work Phone: Start: 09-23-2022 End: 09-23-2022 Patient encounter procedure MD Helen Heath Work Phone: [facility] [place] Work Phone: Start: 09-18-2022 End: 09-19-2022 ambulatory Vesna M. Lue Facility:[facility] Start: 09-03-2022 End: 09-03-2022 ambulatory MD Helen Heath Work Phone: [facility] Work Phone: Start: 09-03-2022 End: 09-03-2022 Registered Recurring MD Helen Heath Work Phone: [facility] Work Phone: Start: 09-01-2022 End: 09-02-2022 ambulatory Santi SCHWARTZ Facility:[facility] Start: 09-01-2022 End: 09-01-2022 Patient encounter procedure Santi SCHWARTZ [facility] Start: 08-27-2022 End: 08-28-[address] HELEN HEATH Facility:[facility] Start: 08-25-2022 End: 08-26-2022 ambulatory Vesna Cortez Facility:[facility] [place] Start: 08-25-2022 End: 08-25-2022 Lab Drop off Vesna Cortez [facility] Start: 08-25-2022 End: 08-26-2022 ambulatory Santi SCHWARTZ Facility:[facility] [place] Start: 08-25-2022 End: 08-25-2022 Patient encounter procedure Santi SCHWARTZ [facility] Start: 08-23-2022 End: 08-24-2022 ambulatory DR HELEN HEATH Facility:H1 Start: 08-19-2022 End: 08-19-2022 Lab Drop off KEN HELTON [facility] Start: 08-19-2022 End: 08-19-2022 Patient encounter procedure KEN HELTON [facility] Start: 08-06-2022 End: 08-06-2022 Patient encounter procedure Vesna Cortez [facility] Start: 07-30-2022 End: 07-30-2022 ambulatory VESNA M LUE Facility:H1 Start: 07-28-2022 End: 07-28-2022 ambulatory MD Helen Heath Work Phone: [facility] Work Phone: Start: 07-28-2022 End: 07-28-2022 Registered Recurring MD Helen Heath Work Phone: [facility] Start: 07-26-2022 End: 07-27-2022 ambulatory VESNA M LUE Facility:H1 Start: 07-21-2022 Encounter for other preprocedural examination VESNA M LUE [facility] Start: 07-21-2022 Encounter for preprocedural respiratory examination VESNA M LUE [facility] Start: 07-17-2022 End: 07-18-2022 ambulatory VESNA M LUE Facility:H1 Start: 07-17-2022 End: 07-18-2022 Encounter for other preprocedural examination VESNA M LUE Facility:H1 Start: 07-17-2022 End: 07-18-2022 ambulatory VESNA M LUE Facility:H1 Start: 07-07-2022 End: 07-07-2022 Patient encounter procedure Vesna M. Lue [facility] Start: 07-04-2022 End: 07-04-2022 Patient encounter procedure Vesna M. Lue [facility] Start: 07-03-[address] Helen Summers [facility] Kumar Facility:[facility] Start: 07-01-2022 End: 07-01-2022 Patient encounter procedure Vesna M. Lue [facility] Start: 06-27-2022 End: 06-27-2022 ambulatory MD Helen Heath Work Phone: [facility] Work Phone: Start: 06-27-2022 End: 06-27-2022 Registered Recurring MD Helen Heath Work Phone: [facility] Start: 06-04-2022 End: 06-04-2022 Lab Drop off Vesna Cortez [facility] Start: 06-04-2022 End: 06-04-2022 Patient encounter procedure Vesna Cortez [facility] Start: 05-23-2022 End: 05-23-2022 ambulatory PHYSICIAN NO [facility] Work Phone: Start: 05-23-2022 End: 05-23-2022 Registered Recurring PHYSICIAN NO [facility] Start: 05-14-2022 End: 05-14-2022 Patient encounter procedure Vesna Cortez [facility] Start: 05-07-2022 End: 05-07-[address] HELEN HEATH Facility: Start: 05-06-2022 End: 05-06-2022 Patient encounter procedure Vesna Cortez [facility] Start: 05-05-2022 End: 05-05-2022 Patient encounter procedure Vesna Cortez [facility] Start: 04-30-2022 End: 04-30-2022 Admission to same day surgery center MD Helen Heath Work Phone: [facility] [place] Start: 04-23-2022 End: 04-23-2022 Patient encounter procedure MD Helen Heath Work Phone: [facility] [place] Start: 04-18-2022 End: 04-18-2022 Lab Drop off Vesna Cortez [facility] Start: 04-18-2022 End: 04-18-2022 Patient encounter procedure Vesna Cortez [facility] Start: 04-16-2022 Registered Recurring MD Inderjit Heath [facility] Start: 04-03-2022 End: 04-03-2022 Patient encounter procedure Patsy Seals Jr. [facility] Start: 03-24-2022 End: 03-24-2022 Departed Referred MD Helen Heath Work Phone: [facility] Start: 02-05-[address] Helen Summers [facility] Kumar Facility:[id number] Start: 01-28-2022 End: 01-28-2022 Patient encounter procedure Patsy Seals Jr. [facility] Start: 01-24-2022 Encounter for preprocedural cardiovascular examination DR PATSY Cartwright [facility] Start: 01-24-2022 Encounter for preprocedural laboratory examination DR PATSY Cartwright [facility] Start: 01-14-2022 End: 01-14-[address] PATSY Cartwright Facility:H1 Start: 01-10-[address] HELEN HEATH [facility] ity:H1 Start: 01-09-2022 End: 01-10-[address] PATSY Cartwright Facility:H1 Start: 01-09-2022 End: 01-10-2022 Encounter for preprocedural cardiovascular examination DR PATSY Cartwright Facility: Start: 01-02-[address] Helen Summers [facility] Kumar Facility:[id number] Start: 12-23-[address] Helen Heath Facility:[id number] Start: 12-12-[address] Helen Heath Facility:[facility] Start: 12-10-2021 End: 12-10-2021 Patient encounter procedure Patsy Seals Jr. [facility] Start: 11-28-2021 ambulatory WILFREDO VANESSA Fa cility:[facility] Start: 10-29-2021 End: 10-29-2021 ambulatory [employer] Other [employer] Other Start: 10-29-2021 Office outpatient vi sit 25 minutes Azrajinder Bakfahad [facility] Nephrology Procedures Date Procedure Procedure Detail Performing Clinician Start: 07-14-2023 Diagnostic radiography of abdomen MD Helen Heath Work Phone: Start: 06-10-2023 Cystoscopic replacement of ureteric stent Vesna Luheena Start: 06-10-2023 Extracorporeal shockwave lithotripsy of calculus of kidney Vesna Lue Start: 05-19-2023 Diagnostic radiography of abdomen MD Helen Heath Work Phone: Start: 03-05-2023 Cystostomy and insertion of suprapubic catheter Vesna Lue Start: 02-19-2023 Plain X-ray of left hip MD Helen almazan Work Phone: Start: 02-19-2023 X-ray of lumbar spine, four or more views MD Helen Heath Work Phone: Start: 01-05-2023 Urine culture MD Helen Heath Work Phone: Start: 12-17-2022 Ultrasonography of bilateral kidneys MD Helen Heath Work Phone: Start: 12-10-2022 Cystoscopic insertion of ureteric stent Vesna Cortez Start: 12-01-2022 Ultrasonography of bilateral kidneys MD Helen Heath Work Phone: Start: 11-27-2022 X-ray of cervical spine MD Helen almazan Work Phone: Start: 11-17-2022 Ultrasonography of bilateral kidneys MD Helen Heath Work Phone: Start: 11-11-2022 MR prostate wo con MD Helen Heath Work Phone: Start: 11-10-2022 Urine culture MD Helen Heath Work Phone: Start: 10-30-2022 Ultrasonography of bilateral kidneys MD Helen Heath Work Phone: Start: 10-14-2022 Ultrasonography of bilateral kidneys MD Helen Heath Work Phone: Start: 10-02-2022 CT of abdomen and pelvis without contrast MD Helen Heath Work Phone: Start: 09-23-2022 Urine culture MD Helen Heath Work Phone: Start: 09-23-2022 Diagnostic radiography of abdomen MD Helen Heath Work Phone: Start: 09-23-2022 Ultrasonography of bilateral kidneys MD Helen Heath Work Phone: Start: 08-27-2022 Transurethral prostatectomy Santi SCHWARTZ Start: 05-05-2022 Transurethral insertion of prostatic urethral lift implant Vesna Diego Start: 04-30-2022 Needle biopsy PHYSICIAN NO FAMILY Start: 09-16-2021 Radiologic examination, osseous survey, complete MD Helen Heath Work Phone: Start: 09-03-2020 Follow-up visit Start: 03-12-2020 Duplex scan veins of upper limb MD Helen Heath Work Phone: Start: 08-20-2012 Cystoscopic removal of ureteric stent Patsy Seals JrChay Start: 08-05-2012 Cystoscopic anastomosis of ureter to bladder with insertion of stent into ureter Patsy Seals JrChay Start: 03-02-2009 Extracorporeal shockwave lithotripsy of calculus of kidney Patsy Seals JrChay H/O: renal dialysis History of hemodialys is MD Helen Heath Work Phone: H/O: surgery S/P UPPP (uvulopalatopharyngopla sty) MD Helen Heath Work Phone: heel spur Patsy Seals Jr Chay Urine culture MD Helen love Work Phone: Urine culture MD Helen love Work Phone: Plan of Treatment Date Care Activity Detail Author Start: 06-24-2031 Urine microalbumin profile DTAP,TDAP,TD (4 - Tdap) [facility] Start: 02-24-2024 HEMOGLOBIN/HEMATOCRIT HEMOGLOBIN/HEMATOCRIT [facility] Start: 02-24-2024 SERUM CREATININE SERUM CREATININE [facility] Start: 09-23-2023 ambulatory Ambulatory Facility:CD:[id number] Start: 08-31-2023 ambulatory Ambulatory Facility:[facility] Start: 07-02-2023 [facility] Start: 06-18-2023 [facility] Start: 06-18-2023 [facility] Start: 06-04-2023 [facility] Start: 06-04-2023 [facility] Start: 05-21-2023 [facility] Start: 05-19-2023 End: 05-19-2023 [facility] Start: 05-19-2023 Immunofixation for Urine [facility] Start: 05-07-2023 [facility] Start: 05-07-2023 [facility] Start: 04-23-2023 [facility] Start: 04-17-2023 Influenza vaccination INFLUENZA (#1) [facility] Start: 04-09-2023 [facility] Start: 03-26-2023 [facility] Start: 03-12-2023 [facility] Start: 03-10-2023 End: 03-10-2023 [facility] Start: 03-09-2023 [facility] Start: 03-02-2023 [facility] Start: 02-19-2023 [facility] Start: 02-05-2023 [facility] Start: 01-22-2023 [facility] Start: 01-08-2023 [facility] Start: 12-25-2022 [facility] Start: 12-11-2022 [facility] Start: 11-27-2022 [facility] Start: 11-13-2022 [facility] Start: 11-11-2022 MR prostate wo con MR prostate wo con [facility] Start: 11-11-2022 MR Prostate WO contrast [facility] Start: 11-10-2022 Urine culture Urine Culture [facility] Start: 11-06-2022 [facility] Start: 10-30-2022 [facility] Start: 10-30-2022 [facility] Start: 10-30-2022 [facility] Start: 10-21-2022 [facility] Start: 10-16-2022 [facility] Start: 10-09-2022 [facility] Start: 10-01-2022 [facility] Start: 09-23-2022 Bacteria identified in Urine by Culture [facility] Start: 09-22-2022 [facility] Start: 08-28-2022 [facility] Start: 08-27-2022 [facility] Start: 08-17-2022 ADVANCE DIRECTIVE DISCUSSION ADVANCE DIRECTIVE DISCUSSION [facility] Start: 08-17-2022 DEPRESSION ASSESSMENT DEPRESSION ASSESSMENT [facility] Start: 07-28-2022 End: 07-28-2022 [facility] Start: 07-25-2022 End: 07-25-2022 [facility] Start: 05-29-2022 [facility] Start: 05-08-2022 [facility] Start: 04-30-2022 End: 04-30-2022 [facility] Start: 04-30-2022 Immunofixation for Urine [facility] Work Phone: Start: 04-30-2022 End: 04-30-2022 [facility] Work Phone: Start: 04-30-2022 CT guided biopsy [facility] Work Phone: Start: 04-30-[address] guided biopsy [facility] Start: 04-16-2022 Registered Recurring Anemia of renal disease [facility] Start: 2022 [facility] Start: 2022 [facility] Start: 12-18-2021 [facility] Start: 11-25-2021 [facility] Start: 09-20-2021 [facility] Start: 09-12-2021 [facility] Start: 08-19-2021 PNEUMOCOCCAL: 65+ (2 - PPSV23 if available, else PCV20) PNEUMOCOCCAL: 65+ (2 - PPSV23 if available, else PCV20) [facility] Start: 08-19-2021 PNEUMOCOCCAL: 65+ (2 - PPSV23 or PCV20) PNEUMOCOCCAL: 65+ (2 - PPSV23 or PCV20) [facility] Start: 08-14-2021 [facility] Start: 07-30-2021 COVID-19 VACCINE (4 - Booster for Pfizer series) COVID-19 VACCINE (4 - Booster for Pfizer series) [facility] Start: 07-30-2021 COVID-19 VACCINE (5 - Booster) COVID-19 VACCINE (5 - Booster) [facility] Start: 06-17-2021 End: 06-17-2021 [facility] Start: 05-17-2021 [facility] Start: 04-25-2021 End: 04-25-2021 [facility] Start: 10-10-2020 [facility] Start: 06-15-2020 [facility] Start: 05-07-2020 [facility] Start: 05-03-2020 [facility] Start: 04-25-2020 [facility] Start: 04-16-2020 End: 04-16-2020 [facility] Start: 04-12-2020 End: 04-12-2020 [facility] Start: 03-21-2020 [facility] Start: 03-21-2020 End: 03-21-2020 [facility] Start: 03-15-2020 [facility] Start: 03-12-2020 [facility] Start: 2010 PNEUMOCOCCAL: 65+ (1 - PCV) PNEUMOCOCCAL: 65+ (1 - PCV) [facility] Start: 1995 SHINGRIX VACCINE (1 of 2) SHINGRIX VACCINE (1 of 2) [facility] Start: 1990 DIABETES SCREEN DIABETES SCREEN [facility] Start: 02-05-1964 Urine microalbumin profile DTAP,TDAP,TD (1 - Tdap) [facility] Start: 1963 ANNUAL PCP TEAM CHRONIC DISEASE VISIT ANNUAL PCP TEAM CHRONIC DISEASE VISIT [facility] Start: 1963 BP CONTROLLED (<130/80) BP CONTROLLED (<130/80) [facility] Start: 1963 HEMOGLOBIN/HEMATOCRIT HEMOGLOBIN/HEMATOCRIT [facility] Start: 1963 Hepatitis B surface antibody level LDL CHOLESTEROL [facility] Start: 1963 HEPATITIS C SCREENING HEPATITIS C SCREENING [facility] Start: 1963 SERUM CREATININE SERUM CREATININE [facility] Start: 1955 3 comp foot exam completed DIABETIC FOOT EXAM [facility] darlene Start: 1955 Hepatitis B screening URINE ALBUMIN:CREATININE RATIO [facility] Start: 1955 Hepatitis C antibody, confirmatory test DILATED RETINAL EXAM [facility] Start: 1950 Hemoglobin A1c/Hemoglobin.total in Blood HBA1C [facility] 24 hour urine measurement Fi [facility] Work Phone: 24 hour urine measurement [facility] Albumin [Mass/volume ] in Serum or Plasma [facility] Work Phone: Albumin [Mass/volume ] in Serum or Plasma [facility] Albumin/Globulin ratio [facility] Work Phone: Albumin/Globulin ratio [facility] aPTT in Platelet poo r plasma by Coagulation assay [facility] Work Phone: aPTT in Platelet poo r plasma by Coagulation assay [facility] Blood chemistry [facility] Work Phone: Comprehensive metabo lic 1999 panel - Serum or Plasma [facility] Work Phone: Comprehensive metabo lic 1999 panel - Serum or Plasma [facility] Comprehensive metabo lic 1999 panel - Serum or Plasma [facility] Comprehensive metabo lic 1999 panel - Serum or Plasma [facility] Comprehensive metabo lic 1999 panel - Serum or Plasma [facility] Comprehensive metabo lic 1999 panel - Serum or Plasma [facility] Comprehensive metabo lic 1999 panel - Serum or Plasma [facility] Comprehensive metabo lic 1999 panel - Serum or Plasma [facility] Comprehensive metabo lic 1999 panel - Serum or Plasma [facility] Comprehensive metabo lic 1999 panel - Serum or Plasma [facility] Comprehensive metabo lic 1999 panel - Serum or Plasma [facility] Comprehensive metabo lic 1999 panel - Serum or Plasma [facility] CT guided biopsy [facility] Work Phone: Electrophoresis: [id number] [facility] Work Phone: Electrophoresis: [id number] [facility] Electrophoresis: [id number] [facility] Work Phone: Electrophoresis: [id number] [facility] Electrophoresis: beta-globulin [facility] Work Phone: Electrophoresis: beta-globulin [facility] Electrophoresis: radha ma globulin [facility] Work Phone: Electrophoresis: radha ma globulin [facility] Erythropoietin (EPO) [Units/volume] in Serum or Plasma [facility] Ferritin [Mass/volum e] in Serum or Plasma [facility] Globulin [Mass/volum e] in Serum [facility] Work Phone: Globulin [Mass/volum e] in Serum [facility] Glucose measurement estimated from glycated hemoglobin [facility] Hemoglobin A1c/Hemoglobin.total in Blood [facility] Homocysteine [Moles/volume] in Serum or Plasma [facility] IgA [Mass/volume] in Serum or Plasma [facility] Work Phone: IgA [Mass/volume] in Serum or Plasma [facility] IgG [Mass/volume] in Serum or Plasma [facility] Work Phone: IgG [Mass/volume] in Serum or Plasma [facility] IgM [Mass/volume] in Serum or Plasma [facility] Work Phone: IgM [Mass/volume] in Serum or Plasma [facility] Immunofixation for Urine [facility] Work Phone: Immunofixation for Urine [facility] Immunofixation for Urine [facility] Immunofixation for Urine [facility] Immunofixation for Urine [facility] Immunofixation for Urine [facility] Immunofixation for Urine [facility] Malden light chains.f ree [Mass/volume] in Serum [facility] Work Phone: Mal[place] light chains.f ree [Mass/volume] in Serum [facility] Mal[place] light chains.free/Lambda light chains.free [Mass Ratio] in Serum [facility] Work Phone: [place] light chains.free/Lambda light chains.free [Mass Ratio] in Serum [facility] Lactate dehydrogenas e [Enzymatic activity/volume] in Unspecified specimen [facility] Work Phone: Lactate dehydrogenas e [Enzymatic activity/volume] in Unspecified specimen [facility] Lactate dehydrogenas e [Enzymatic activity/volume] in Unspecified specimen [facility] Lactate dehydrogenas e [Enzymatic activity/volume] in Unspecified specimen [facility] Lactate dehydrogenas e [Enzymatic activity/volume] in Unspecified specimen [facility] Lambda light chains. free [Mass/volume] in Serum or Plasma [facility] Work Phone: Lambda light chains. free [Mass/volume] in Serum or Plasma [facility] Measurement of monoc lonal protein concentration [facility] Work Phone: Measurement of monoc lonal protein concentration [facility] Methylmalonate [Moles/volume] in Serum or Plasma [facility] Methylmalonate [Moles/volume] in Serum or Plasma [facility] Patient Education Bone Marrow As piration or Biopsy [facility] Work Phone: Protein [Mass/volume ] in Serum or Plasma [facility] Work Phone: Protein [Mass/volume ] in Serum or Plasma [facility] Protein [Mass/volume ] in Urine [facility] Work Phone: Protein [Mass/volume ] in Urine [facility] Radiologic examinati on osseous survey compl [facility] Serum immunofixation [facility] Work Phone: [facility] Immunizations Immunization Date Immunization Notes Care Provider [facility] 07-28-2022 hepatitis A vaccine, adult dosage MD Helen Heath Work Phone: [facility] 05-18-2022 influenza (HD-IIV4) vaccine, age 65+ yr, high dose, quadrivalent, PF (FLUZONE HIGH-DOSE) Pac 2 Work Phone: [facility] 05-18-2022 influenza virus vacc ine, unspecified formulation Vesna Cortez [facility] 03-03-2022 zoster vaccine recombinant Vesna Cortez [facility] 02-05-2022 hepatitis A vaccine, adult dosage MD Helen Heath Work Phone: [facility] 07-31-2021 zoster vaccine recombinant Vesna Cortez [facility] 07-16-2021 influenza (aIIV4) vaccine, age 65+ yr, quadrivalent, PF (FLUAD QUAD) [facility] 2 Work Phone: [facility] 07-16-2021 influenza virus vacc ine, unspecified formulation Vesna Luheena [facility] 06-24-2021 diphtheria, tetanus toxoids and acellular pertussis vaccine Vesna Lue [facility] 06-24-2021 diphtheria, tetanus toxoids and acellular pertussis vaccine, 5 pertussis antigens MD Helen Heath Work Phone: [facility] 06-24-2021 haemophilus influenz ae type b vaccine, PRP-T conjugate MD Helen Heath Work Phone: [facility] 06-24-2021 hepatitis B vaccine, pediatric or pediatric/adolescent dosage MD Helen Heath Work Phone: [facility] 06-24-2021 pneumococcal conjuga te vaccine, 13 valent MD Helen Heath Work Phone: [facility] 06-04-2021 SARS-CoV-2 (COVID-19 ) Ad26 vaccine, recombinant Patsy Seals Jr. [facility] 04-29-2021 diphtheria, tetanus toxoids and acellular pertussis vaccine Vesna Lue [facility] 04-29-2021 diphtheria, tetanus toxoids and acellular pertussis vaccine, 5 pertussis antigens MD Helen Heath Work Phone: [facility] 04-29-2021 haemophilus influenz ae type b vaccine, PRP-T conjugate MD Helen Heath Work Phone: [facility] 04-29-2021 hepatitis B vaccine, pediatric or pediatric/adolescent dosage MD Helen Heath Work Phone: [facility] 04-29-2021 meningococcal ACWY vaccine, unspecified formulation Vesna Lue [facility] 04-29-2021 meningococcal polysaccharide (groups A, C, Y and W-135) diphtheria toxoid conjugate vaccine (MCV4P) MD Helen Heath Work Phone: [facility] 04-29-2021 pneumococcal conjuga te vaccine, 13 valent MD Helen Heath Work Phone: [facility] 03-04-2021 diphtheria, tetanus toxoids and acellular pertussis vaccine Vesna Lue [facility] 03-04-2021 diphtheria, tetanus toxoids and acellular pertussis vaccine, 5 pertussis antigens MD Helen Heath Work Phone: [facility] 03-04-2021 haemophilus influenz ae type b vaccine, PRP-T conjugate MD Helen Heath Work Phone: [facility] 03-04-2021 hepatitis B vaccine, pediatric or pediatric/adolescent dosage MD Helen Heath Work Phone: [facility] 03-04-2021 meningococcal ACWY vaccine, unspecified formulation Vesna Lue [facility] 03-04-2021 meningococcal polysaccharide (groups A, C, Y and W-135) diphtheria toxoid conjugate vaccine (MCV4P) MD Helen Heath Work Phone: [facility] 03-04-2021 pneumococcal conjuga te vaccine, 13 valent MD Helen Heath Work Phone: [facility] 11-13-2020 SARS-CoV-2 (COVID-19 ) Ad26 vaccine, recombinant Patsy Seals Jr. [facility] 10-23-2020 SARS-CoV-2 (COVID-19 ) Ad26 vaccine, recombinant Patsy Seals Jr. [facility] 10-12-2020 SARS-CoV-2 (COVID-19 ) [id number] vaccine Patsy Seals Jr. [facility] Comment on above: Result Comment: radha castillo date Result Comment: radha castillo date 05-17-2020 influenza virus vacc ine, unspecified formulation Patsy Seals Jr. [facility] 05-04-2020 influenza virus vacc ine, unspecified formulation Vesna Lue [facility] 06-02-2019 influenza virus vacc ine, unspecified formulation Vesna Lue [facility] 06-02-2019 influenza, high dose seasonal, preservative-free Pacc 2 Work Phone: [facility] 07-04-2015 influenza virus vacc ine, unspecified formulation Vesna Lue [facility] 07-04-2015 influenza, high dose seasonal, preservative-free Pacc 2 Work Phone: [facility] 07-04-2015 pneumococcal conjuga te vaccine, 13 valent Vesna Lue [facility] 10-27-2013 zoster vaccine, live Vesna L ue [facility] Payers Date Payer Category Payer Private Health Insurance [facility] AAR SUPPLEMENT [id number] 2022-Present [phone] [address] [place] [address] Indemnity [id number] 2020 Self-pay [id number] 2004 Medicare [id number] 1959 Medicare [id number] 2.16.840.1.314914.19 1959 Unknown [id number] 1945 Unknown [id number] 2.16.840.1.532955.3.579.2 .356 1945 Unknown [id number] 2.16.840.1.973191.3.579.2 .356 1945 Unknown [id number] 2.16.840.1.502924.3.579.2 .356 1945 Unknown [id number] 2.16.840.1.679235.3.579.2 .356 1945 Unknown [id number] 2.16.840.1.238373.3.579.2 .356 1945 Unknown [id number] 2.16.840.1.596619.3.579.2 .356 1945 Unknown [id number] 2.16.840.1.223867.3.579.2 .356 1945 Unknown [id number] 2.16.840.1.685773.3.579.2 .593 1945 Unknown [id number] 2.16.840.1.609163.3.579.2 .593 1945 Unknown [id number] 2.16.840.1.534036.3.579.2 .593 1945 Unknown [id number] 2.16.840.1.687508.3.579.2 .593 1945 Unknown [id number] 2.16.840.1.937784.3.579.2 .593 1945 Unknown [id number] 2.16.840.1.696807.3.579.2 .593 1945 Unknown [id number] 2.16.840.1.259535.3.579.2 .593 1945 Unknown [id number] 2.16.840.1.110829.3.579.2 .593 1945 Unknown [id number] 2.16.840.1.476766.3.579.2 .593 1945 Unknown [id number] 2.16.840.1.970580.3.579.2 .593 1945 Unknown [id number] 2.16.840.1.839663.3.579.2 .593 1945 Unknown [id number] 2.16.840.1.063422.3.579.2 .593 1945 Unknown [id number] 2.16.840.1.590337.3.579.2 .727 1945 Unknown [id number] 2.16.840.1.049786.3.579.2 .727 1945 Unknown [id number] 2.16.840.1.338076.3.579.2 .727 1945 Unknown [id number] 2.16.840.1.876329.3.579.2 .727 1945 Unknown [id number] 2.16.840.1.998889.3.579.2 .727 1945 Unknown [id number] 2.16.840.1.372244.3.579.2 .1945 Unknown [id number] 2.16.840.1.361884.3.579.2 .1945 Unknown [id number] 2.16.840.1.520639.3.579.2 .1945 Unknown [id number] 2.16.840.1.314542.3.579.2 .1945 Unknown [id number] 2.16.840.1.552387.3.579.2 .1945 Unknown [id number] 2.16.840.1.076278.3.579.2 1945 Unknown [id number] 2.16.840.1.448063.3.579.2 1945 Unknown [id number] 2.16.840.1.225272.3.579.2 1945 Unknown [id number] 2.16.840.1.009027.3.579.2 1945 Unknown [id number] 2.16.840.1.742223.3.579.2 .1945 Unknown [id number] 2.16.840.1.491685.3.579.2 .1945 Unknown [id number] 2.16.840.1.644084.3.579.2 .1945 Unknown [id number] 2.16.840.1.500013.3.579.2 1945 Unknown [id number] 2.16.840.1.550020.3.579.2 .1945 Unknown [id number] 2.16.840.1.965749.3.579.2 .727 1945 Unknown [id number] 2.16.840.1.449126.3.579.2 .72 1945 Unknown [id number] 2.16.840.1.740472.3.579.2 .72 1945 Unknown [id number] 2.16.840.1.843603.3.579.2 .72 1945 Unknown [id number] 2.16.840.1.554747.3.579.2 .1945 Unknown [id number] 2.16.840.1.011407.3.579.2 .1945 Unknown [id number] 2.16840.1.993343.3.579.2 .1945 Unknown [id number] 2.840.1.632837.3.579.2 1945 Unknown [id number] 2.840.1.087121.3.579.2 .72 1945 Unknown [id number] 2.16840.1.164445.3.579.2 .1945 Unknown [id number] 2.840.1.941170.3.579.2 .1945 Unknown [id number] 2.840.1.908999.3.579.2 .1945 Unknown [id number] 2.16840.1.032900.3.579.2 .72 1945 Unknown [id number] 2.16840.1.974014.3.579.2 .727 Medicare Medicare Outpatient [id number] Unknown [id number] 2.16840.1.168458.19 Unknown [id number] 2.16840.1.630147.3.579.2 .531 Unknown [id number] 2.16.840.1.706717.3.579.2 .531 Unknown [id number] 2.16.840.1.050694.3.579.2 .531 Unknown [id number] 2.16.840.1.863961.3.579.2 .531 Unknown [id number] 2.16.840.1.024224.3.579.2 .531 Unknown [id number] 2.16.840.1.483706.3.579.2 .531 Unknown [id number] 2.16.840.1.403740.3.579.2 .531 Unknown [id number] 2.16.840.1.918513.3.579.2 .531 Unknown [id number] 2.16.840.1.994833.3.579.2 .531 Unknown [id number] 2.16.840.1.939081.3.579.2 .531 Unknown [id number] 2.16.840.1.704333.3.579.2 .531 Unknown [id number] 2.16.840.1.525218.3.579.2 .531 Unknown [id number] 2.16.840.1.374134.3.579.2 .531 Unknown [id number] 2.16.840.1.527900.3.579.2 .531 Unknown [id number] 2.16.840.1.665912.3.579.2 .531 Unknown [id number] 2.16.840.1.380105.3.579.2 .531 Unknown [id number] 2.16.840.1.390014.3.579.2 .531 Social History Date Type Detail Facility Start: 11-13-2020 End: 05-28-2023 Tobacco smoking status Ex-smoker (finding) [facility] Other Comment on above: pt quit smoking 20 y ears ago pt quit smoking 20 y ears ago Start: 01-07-2023 End: 02-11-2023 Sex Assigned At Male [facility] Other Start: 02-05-2022 Tobacco smoking stat [facility] Never smoked tobacco (finding) [facility] Start: 1945 Sex Assigned At Male F [facility] Start: 07-22-2023 Tobacco smoking status Never [facility] Comment on above: pt quit smoking 20 y ears ago Tobacco smoking stat [facility] Tobacco smoking consumption unknown [facility] Start: 1945 Sex Assigned At Not on file C [facility] End: 08-17-1979 History of tobacco use Current smoker [facility] End: 08-17-1979 History of tobacco use Cigarette Smoker [facility] Start: 01-07-2023 End: 02-11-2023 Cigarettes smoked current (pack per day) - Reported 2 [facility] Start: 02-11-2023 Tobacco use and exposure Smokeless tobacco non-user [facility] Start: 02-11-2023 Alcohol intake Current drinke r of alcohol (finding) [facility] Start: 02-11-2023 Alcohol Comment none since 1990 [facility] Medical Equipment Procedure Code Equipment Code Equipment Origin al Text Equipment Identifier Dates Insertion of central venous catheter (CVC) with subcutaneous port for chemotherapy Vascular port/catheter [id number] FDA Start: 03-09-2020 Fluoroscopic guidance for insertion of tunnelled dialysis catheter [id number] FDA Start: 03-08-2020 Fluoroscopic guidance for insertion of tunnelled dialysis catheter [id number] FDA Start: 03-08-2020 Fluoroscopic guidance for insertion of tunnelled dialysis catheter [id number] FDA Start: 03-08-2020 Fluoroscopic guidance for insertion of tunnelled dialysis catheter [id number] FDA Start: 03-08-2020 Fluoroscopic guidance for insertion of tunnelled dialysis catheter [id number] FDA Start: 03-08-2020 Fluoroscopic guidance for insertion of tunnelled dialysis catheter [id number] FDA Start: 03-08-2020 Fluoroscopic guidance for insertion of tunnelled dialysis catheter [id number] FDA Start: 03-08-2020 Fluoroscopic guidance for insertion of tunnelled dialysis catheter [id number] FDA Start: 03-08-2020 Fluoroscopic guidance for insertion of tunnelled dialysis catheter [id number] FDA Start: 03-08-2020 Fluoroscopic guidance for insertion of tunnelled dialysis catheter [id number] FDA Start: 03-08-2020 Fluoroscopic guidance for insertion of tunnelled dialysis catheter [id number] FDA Start: 03-08-2020 Fluoroscopic guidance for insertion of tunnelled dialysis catheter [id number] FDA Start: 03-08-2020 Fluoroscopic guidance for insertion of tunnelled dialysis catheter [id number] FDA Start: 03-08-2020 Fluoroscopic guidance for insertion of tunnelled dialysis catheter [id number] FDA Start: 03-08-2020 Fluoroscopic guidance for insertion of tunnelled dialysis catheter [id number] FDA Start: 03-08-2020 Fluoroscopic guidance for insertion of tunnelled dialysis catheter [id number] FDA Start: 03-08-2020 Fluoroscopic guidance for insertion of tunnelled dialysis catheter [id number] FDA Start: 03-08-2020 Fluoroscopic guidance for insertion of tunnelled dialysis catheter [id number] FDA Start: 03-08-2020 Fluoroscopic guidance for insertion of tunnelled dialysis catheter [id number] FDA Start: 03-08-2020 Functional Status Date Assessment Result Facility 07-22-2023 Functional Status N/A [facility] 05-15-2023 Functional Status N/A [facility] 02-13-2023 Functional Status N/A [facility] 12-19-2022 Functional Status N/A [facility] 12-05-2022 Functional Status N/A [facility] 11-03-2022 Functional Status N/A [facility] 10-16-2022 Functional Status N/A [facility] 10-09-2022 Functional Status N/A [facility] 07-07-2022 Functional Status N/A [facility] 07-04-2022 Functional Status N/A [facility] 06-04-2022 Functional Status N/A [facility] 05-05-2022 Functional Status N/A [facility] 04-18-2022 Functional Status N/A [facility] 01-28-2022 Functional Status N/A [facility] Clinical Notes 03-15-2020 to 07-22-2023 Patient InstructionsYocasta Garcias APRN.[facility] - 02/11/2023 12:29 PM EDT Note Date & Type Note Facility 07-22-2023 Hospital Discharge instructions Patient Education 07/22/2023 10:06:20 Ureteral Stent Implantation, Care After Ureteral Stent Implantation, Care After The following information offers guidance on how to care for yourself after your procedure. Your health care provider may also give you more specific instructions. If you have problems or questions, contact your health care provider. What can I expect after the procedure? After the procedure, it is common to have: Nausea. Mild pain when you urinate. You may feel this pain in your lower back or lower abdomen. The pain should stop within a few minutes after you urinate. This pattern may last for up to 1 week. A small amount of blood in your urine for several days. Follow these instructions at home: Medicines Take phbq-zwc-wxdelkw and prescription medicines only as told by your health care provider. If you were prescribed antibiotics, take them as told by your health care provider. Do not stop using the antibiotic even if you start to feel better. If you were given a sedative during the procedure, it can affect you for several hours. Do not drive or operate machinery until your health care provider says that it is safe. Ask your health care provider if the medicine prescribed to you: ?Requires you to avoid driving or using machinery. ?Can cause constipation. You may need to take these actions to prevent or treat constipation: ?Take mmlc-cxu-ijhmvah or prescription medicines. ?Eat foods that are high in fiber, such as beans, whole grains, and fresh fruits and vegetables. ?Limit foods that are high in fat and processed sugars, such as fried or sweet foods. Activity Rest as told by your health care provider. Do not sit for a long time without moving. Get up to take short walks every 1 2 hours. This will improve blood flow and breathing. Ask for help if you feel weak or unsteady. Return to your normal activities as told by your health care provider. Ask your health care provider what activities are safe for you. General instructions If you have a catheter: ?Follow instructions from your health care provider about taking care of your catheter and collection bag. ?Do not take baths, swim, or use a hot tub until your health care provider approves. Ask your health care provider if you may take showers. You may only be allowed to take sponge baths. Drink enough fluid to keep your urine pale yellow. Do not use any products that contain nicotine or tobacco. These products include cigarettes, chewing tobacco, and vaping devices, such as e-cigarettes. These can delay healing after surgery. If you need help quitting, ask your health care provider. Keep all follow-up visits. Contact a health care provider if: You start passing blood clots, or you have more than a small amount of blood in your urine. You have pain that gets worse or does not get better with medicine, especially pain when you urinate. You have trouble urinating. You feel nauseous or you vomit again and again during a period of more than 2 days after the procedure. You have a fever. Get help right away if: You are passing blood clots that are 1 inch (2.5 cm) or larger in size. You are leaking urine (have incontinence), or you cannot urinate. The end of the stent comes out of your urethra. You have sudden, sharp, or severe pain in your abdomen or lower back. You have swelling or pain in your legs. You have trouble breathing. These symptoms may be an emergency. Get help right away. Call 911. Do not wait to see if the symptoms will go away. Do not drive yourself to the hospital. Summary After the procedure, it is common to have mild pain when you urinate that goes away within a few minutes after you urinate. This may last for up to 1 week. Take zcnp-cxo-olwknsz and prescription medicines only as told by your health care provider. Drink enough fluid to keep your urine pale yellow. Call your health care provider if you start passing blood clots, or you have more than a small amount of blood in your urine. This information is not intended to replace advice given to you by your health care provider. Make sure you discuss any questions you have with your health care provider. Document Revised: 09/08/2022 Document Reviewed: 09/08/2022 [employer] Patient Education 2022 [employer]. 07/22/2023 10:06:01 Suprapubic Catheter Replacement Suprapubic Catheter Replacement Suprapubic catheter replacement is a procedure to remove an old catheter and insert a new, clean catheter. A suprapubic catheter is a rubber tube that drains urine from the bladder into a collection bag outside the body. The catheter is inserted into the bladder through a small opening in the lower abdomen, near the center of the body, above the pubic bone (suprapubicarea). There is a tiny balloon filled with germ-free (sterile) water on the end of the catheter that is in the bladder. The balloon helps to keep the catheter in place. If you need to wear a catheter for a long period of time, you may be instructed to replace the catheter yourself. Usually, suprapubic catheters need to be replaced every 4 6 weeks, or as often as told by your health care provider. What are the risks? Generally, this is a safe procedure. However, problems may occur, including failure to get the catheter into the bladder. What happens before the procedure? You may have an exam or testing, including a blood or urine sample. Ask your health care provider what steps will be taken to help prevent infection. What happens during the procedure? You will lie on your back. The water from the balloon will be removed using a syringe. The catheter will be slowly removed. Lubricant will be applied to the end of the new catheter that will go into your bladder. The new catheter will be inserted through the opening in your abdomen. Your health care provider will slide the catheter into your bladder. Your health care provider will wait for some urine to start flowing through the catheter. When this happens, a syringe will be used to fill the balloon with sterile water. A collection bag will be attached to the end of the catheter. The procedure may vary among health care providers and hospitals. What can I expect after procedure? After the procedure, it is common to have: Some discomfort around the opening in your abdomen. Follow these instructions at home: Caring for the skin around the catheter Use a clean washcloth and soapy water to clean the skin around your catheter every day. Pat the area dry with a clean towel. Do not pull on the catheter. Do not use ointment or lotion on this area unless told by your health care provider. Check the skin around the catheter every day for signs of infection. Check for: ?Redness, swelling, or pain. ?Fluid or blood. ?Warmth. ?Pus or a bad smell. Caring for the catheter Clean the catheter with soap and water as often as told by your health care provider. Always make sure there are no twists or curls (kinks) in the catheter. As soon as you are able to move, you may use a leg bag to collect the urine. ?Make sure that the tubing is straight and without kinks. ?Wrap an morgan bandage gently over the tubing and around your leg to minimize the risk of the bag getting pulled out. Emptying the collection bag Empty the large collection bag every 8 hours. Empty the small collection bag when it is about ? full. To empty your large or small collection bag, take the following steps: Always keep the bag below the level of the catheter. This keeps urine from flowing backward into the catheter. Hold the bag over the toilet or another container. Turn the valve (spigot) at the bottom of the bag to empty the urine. ?Do not touch the opening of the spigot. ?Do not let the opening touch the toilet or container. Close the spigot tightly when the bag is empty. Cleaning the collection bag Wash your hands with soap and water. If soap and water are not available, use hand industrial gas production operator. Disconnect the bag from the catheter and immediately attach a new bag to the catheter. Empty the used bag completely. Clean the used bag according to the building insulation supervisor's instructions, or as told by your health care provider. Let the bag dry completely, and put it in a clean plastic bag before storing it. General instructions Always wash your hands before and after caring for your catheter and collection bag. Use soap and water. If soap and water are not available, use hand industrial gas production operator. Always make sure there are no leaks in the catheter or collection bag. Drink enough fluid to keep your urine pale yellow. If you were prescribed an antibiotic medicine, take it as told by your health care provider. Do not stop taking the antibiotic even if you start to feel better. Do not take baths, swim, or use a hot tub. Keep all follow-up visits as told by your health care provider. This is important. Contact a health care provider if: You leak urine. You have redness, swelling, or pain around your catheter opening. You have fluid or blood coming from your catheter opening. Your catheter opening feels warm to the touch. You have pus or a bad smell coming from your catheter opening. You have a fever or chills. Your urine flow slows down. Your urine becomes cloudy or smelly. Get help right away if: Your catheter comes out. You feel nauseous. You have back pain. You have difficulty changing your catheter. You have blood in your urine. You have no urine flow for 1 hour. Summary Suprapubic catheter replacement is a procedure to remove an old catheter and insert a new, clean catheter. Make sure that you understand how to care for your catheter, your collection bag, and the opening in your abdomen. Always wash your hands before and after caring for your catheter and collection bag. Contact a health care provider if you leak urine or have a fever or any signs of infection around the catheter opening, or if your urine becomes cloudy or smelly. Get help right away if your catheter comes out or you have nausea, back pain, blood in your urine, no urine flow for 1 hour, or difficulty changing your catheter. This information is not intended to replace advice given to you by your health care provider. Make sure you discuss any questions you have with your health care provider. Document Revised: 06/10/2022 Document Reviewed: 06/10/2022 [employer] Patient Education 2022 [employer]. Follow Up Care 07/02/2023 11:48:56 With:Diego RICKS, OUSMANE Bell, URO Address: [address] [place] [phone] When: Unknown Comments:SPT/R stent exchange with 100u of Botox in Sep 2023 [facility] 05-28-2023 Evaluation + Plan note Diagnostic Tests PendingUrine Culture 05/28/[address] [facility] 05-15-2023 Hospital Discharge instructions Patient Education 05/15/2023 16:14:46 Overactive Bladder, Adult Overactive Bladder, Adult Overactive bladder is a condition in which a person has a sudden and frequent need to urinate. A person might also leak urine if he or she cannot get to the bathroom fast enough (urinary incontinence). Sometimes, symptoms can interfere with work or social activities. What are the causes? Overactive bladder is associated with poor nerve signals between your bladder and your brain. Your bladder may get the signal to empty before it is full. You may also have very sensitive muscles that make your bladder squeeze too soon. This condition may also be caused by other factors, such as: Medical conditions: ?Urinary tract infection. ?Infection of nearby tissues. ?Prostate enlargement. ?Bladder stones, inflammation, or tumors. ?Diabetes. ?Muscle or nerve weakness, especially from these conditions: ?A spinal cord injury. ?Stroke. ?Multiple sclerosis. ?Parkinson's disease. Other causes: ?Surgery on the uterus or urethra. ?Drinking too much caffeine or alcohol. ?Certain medicines, especially those that eliminate extra fluid in the body (diuretics). ?Constipation. What increases the risk? You may be at greater risk for overactive bladder if you: Are an older adult. Smoke. Are going through menopause. Have prostate problems. Have a neurological disease, such as stroke, dementia, Parkinson's disease, or multiple sclerosis (MS). Eat or drink alcohol, spicy food, caffeine, and other things that irritate the bladder. Are overweight or obese. What are the signs or symptoms? Symptoms of this condition include a sudden, strong urge to urinate. Other symptoms include: Leaking urine. Urinating 8 or more times a day. Waking up to urinate 2 or more times overnight. How is this diagnosed? This condition may be diagnosed based on: Your symptoms and medical history. A physical exam. Blood or urine tests to check for possible causes, such as infection. You may also need to see a health care provider who specializes in urinary tract problems. This is called a urologist. How is this treated? Treatment for overactive bladder depends on the cause of your condition and whether it is mild or severe. Treatment may include: Bladder training, such as: ?Learning to control the urge to urinate by following a schedule to urinate at regular intervals. ?Doing Kegel exercises to strengthen the pelvic floor muscles that support your bladder. Special devices, such as: ?Biofeedback. This uses sensors to help you become aware of your body's signals. ?Electrical stimulation. This uses electrodes placed inside the body (implanted) or outside the body. These electrodes send gentle pulses of electricity to strengthen the nerves or muscles that control the bladder. ?Women may use a plastic device, called a pessary, that fits into the vagina and supports the bladder. Medicines, such as: ?Antibiotics to treat bladder infection. ?Antispasmodics to stop the bladder from releasing urine at the wrong time. ?Tricyclic antidepressants to relax bladder muscles. ?Injections of botulinum toxin type A directly into the bladder tissue to relax bladder muscles. Surgery, such as: ?A device may be implanted to help manage the nerve signals that control urination. ?An electrode may be implanted to stimulate electrical signals in the bladder. ?A procedure may be done to change the shape of the bladder. This is done only in very severe cases. Follow these instructions at home: Eating and drinking Make diet or lifestyle changes recommended by your health care provider. These may include: ?Drinking fluids throughout the day and not only with meals. ?Cutting down on caffeine or alcohol. ?Eating a healthy and balanced diet to prevent constipation. This may include: ?Choosing foods that are high in fiber, such as beans, whole grains, and fresh fruits and vegetables. ?Limiting foods that are high in fat and processed sugars, such as fried and sweet foods. Lifestyle Lose weight if needed. Do not use any products that contain nicotine or tobacco. These include cigarettes, chewing tobacco, and vaping devices, such as e-cigarettes. If you need help quitting, ask your health care provider. General instructions Take ptaa-jsi-elajdiw and prescription medicines only as told by your health care provider. If you were prescribed an antibiotic medicine, take it as told by your health care provider. Do not stop taking the antibiotic even if you start to feel better. Use any implants or pessary as told by your health care provider. If needed, wear pads to absorb urine leakage. Keep a log to track how much and when you drink, and when you need to urinate. This will help your health care provider monitor your condition. Keep all follow-up visits. This is important. Contact a health care provider if: You have a fever or chills. Your symptoms do not get better with treatment. Your pain and discomfort get worse. You have more frequent urges to urinate. Get help right away if: You are not able to control your bladder. Summary Overactive bladder refers to a condition in which a person has a sudden and frequent need to urinate. Several conditions may lead to an overactive bladder. Treatment for overactive bladder depends on the cause and severity of your condition. Making lifestyle changes, doing Kegel exercises, keeping a log, and taking medicines can help with this condition. This information is not intended to replace advice given to you by your health care provider. Make sure you discuss any questions you have with your health care provider. Document Revised: 04/22/2021 Document Reviewed: 04/22/2021 [employer] Patient Education 2022 [employer] Follow Up Care 04/17/2023 11:27:09 With:Diego RICKS, OUSMANE Bell, URO Address: [address] [place], [place] [address] [place] [address] [phone] When: Unknown Comments:-KUB-sched cysto/R stent exchange and L ESWL and SPT change [facility] 04-15-2023 Note HNO ID: [id number] Author: Daisy Mendoza MD Service: ? Author Type: Physician Type: Progress Notes Filed: 04/15/2023 5:20 PM Note Text: HPI: This is a 78 yo M w multiple myeloma sp bM txp, urosepsis and uti sp urolift and TURP with incidental CAP on TURP, high pressure low capacity bladder w VUR, R ureteral stricture He is now sp open R ureteral stent placement and open SPT placement March 05 Here for initial SPT exchange Reports bladder spasms intermittently Had weakness for a week after surgery This has resolved No fever or chills PAST MEDICAL HISTORY Diagnosis Date Anemia BPH (benign prostatic hyperplasia) Diabetes (HCC) Hypertension Kidney stones Multiple myeloma (HCC) OAB (overactive bladder) Prostate CA (HCC) Rheumatoid arthritis (HCC) PAST SURGICAL HISTORY Procedure Laterality Date BONE MARROW TRANSPLANT, ALLOGENEIC CYSTOSCOPY 11/2022 ESWL 2008 TRANSURETHRAL ELEC-SURG PROSTATECTOM 08/2022 UROLIFT PROSTATE PROCEDURE 04/2022 UVULECTOMY EXCISION OF UVULA Social History Tobacco Use Smoking status: Former Packs/day: 2 Types: Cigarettes Quit date: 1979 Years since quittin.6 Smokeless tobacco: Never Substance Use Topics Alcohol use: Yes Comment: none since 1990 leydi Drug use: Not Currently Current Outpatient Medications on File Prior to Visit Medication Sig aspirin 81 mg chewable tablet mg tab(s), Chewed, Daily, Refills(s) 0 atorvastatin (LIPITOR) 20 mg tablet Take by mouth. famotidine (PEPCID) 20 mg tablet Take 20 mg by mouth. metFORMIN ER (GLUCOPHAGE XR) 500 mg 24 hr tablet oxybutynin ER (DITROPAN XL) 10 mg 24 hr tablet MEN'S MULTI-VITAMIN ORAL Multi Vitamin Mens Active Cholecalciferol, Vitamin D3, (D3-2000) 50 mcg (2,000 unit) cap Take by mouth. Lactobacillus acidophilus (PROBIOTIC) 10 billion cell cap probiotic as directed Active lisinopril (ZESTRIL) 10 mg tablet Take by mouth q 24 HR. LANTUS SOLOSTAR U-100 INSULIN 100 unit/mL (3 mL) insulin lispro (HUMALOG KWIKPEN) 100 unit/mL pen Inject 8 Units subcutaneously three times daily before meals. Plus sliding scale. docusate sodium (STOOL SOFTENER) 100 mg capsule Take 100 mg by mouth twice daily as needed for constipation. phosphorus (PHOSPHOROUS) 250 mg tablet Take 1 tablet by mouth three times daily. No current facility-administered medications on file prior to visit. ROS: Constitutional: negative Gastrointestinal: negative PHYSICAL EXAM: BP 166/75 Pulse 82 GENERAL: Wnl nutrition, no deformities, healthy appearing ABDOMEN: Soft, nontender, nondistended, no masses. GENITOURINARY: MALE EXAM: spt exchanged without issue The existing suprapubic tube was used to fill the bladder. The balloon was deflated and the tube removed. A new 16F bond was inserted without difficult via the SP tract and the balloon inflated with 10mls of sterile water once position within the bladder was confirmed with return of fluid. The patient can have subsequent exchanges done by a registered nurse. DATA/OR LABS TO BE REVIEWED: (Simple=1 data point; Complex= 2 or more) No results found for: PSA Creatinine (mg/dL) Date Value 02/23/2023 1.72 No results found for: TESTOST A/P: 78 M w small capacity high pressure bladder, R ureteral stx sp SPT and R ureteral stent Here for first exchange He will fllow up locally for exchanges Monthly SPT and [id number] stent exchanges Monitoring of BMP He will let me know if any issues Daisy Mendoza MD [facility] 03-05-2023 Note HNO ID: [id number] Author: Ashley Cortez APRN.TUBE WINDER Service: Anesthesiology Author Type: Nurse Desolderer Type: Anesthesia Procedure Notes Filed: 03/05/2023 8:08 AM Note Text: ANESTHESIOLOGY PROCEDURE NOTE Airway General Information Procedure Start Time/Medication Administration: 03/05/2023 7:55 AM Patient location during procedure: OR Patient identity confirmed: arm band Staffing TUBE WINDER: Ashley Cortez APRN.TUBE WINDER Performed by: TUBE WINDER Indications and Patient Condition Indications for airway management: anesthesia Preoxygenated: yes anesthesia circuit Patient position: sniffing Method: asleep Final Airway Details Final airway type: supraglottic airway Number of attempts at approach: 1 Final Supraglottic Airway: i-gel Size 4 Seal Adequate: yes SIGNATURE: Ashley Cortez APRN.TUBE WINDER PATIENT NAME: Patsy Mills DATE: March 05, 2023 TIME: 8:07 AM CSN: [id number] [facility] 02-13-2023 Hospital Discharge instructions Patient Education 02/13/2023 09:54:27 Dietary Guidelines to Help Prevent Kidney Stones Dietary Guidelines to Help Prevent Kidney Stones Kidney stones are deposits of minerals and salts that form inside your kidneys. Your risk of developing kidney stones may be greater depending on your diet, your lifestyle, the medicines you take, and whether you have certain medical conditions. Most people can lower their chances of developing kidney stones by following the instructions below. Your dietitian may give you more specific instructions depending on your overall health and the type of kidney stones you tend to develop. What are tips for following this plan? Reading food labels Choose foods with no salt added or low-salt labels. Limit your salt (sodium) intake to less than 1,500 mg a day. Choose foods with calcium for each meal and snack. Try to eat about 300 mg of calcium at each meal. Foods that contain 200 500 mg of calcium a serving include: ?8 oz (237 mL) of milk, ugplavb-gmevsrnobcmf-besja milk, and calcium-fortifiedfruit juice. Calcium-fortified means that calcium has been added to these drinks. ?8 oz (237 mL) of kefir, yogurt, and soy yogurt. ?4 oz (114 g) of tofu. ?1 oz (28 g) of cheese. ?1 cup (150 g) of dried figs. ?1 cup (91 g) of cooked broccoli. ?One 3 oz (85 g) can of sardines or mackerel. Most people need 1,000 1,500 mg of calcium a day. Talk to your dietitian about how much calcium is recommended for you. Shopping Buy plenty of fresh fruits and vegetables. Most people do not need to avoid fruits and vegetables, even if these foods contain nutrients that may contribute to kidney stones. When shopping for convenience foods, choose: ?Whole pieces of fruit. ?Pre-made salads with dressing on the side. ?Low-fat fruit and yogurt smoothies. Avoid buying frozen meals or prepared deli foods. These can be high in sodium. Look for foods with live cultures, such as yogurt and kefir. Choose high-fiber grains, such as whole-wheat breads, oat bran, and wheat cereals. Cooking Do not add salt to food when cooking. Place a salt shaker on the table and allow each person to add his or her own salt to taste. Use vegetable protein, such as beans, textured vegetable protein (TVP), or tofu, instead of meat in pasta, casseroles, and soups. Meal planning Eat less salt, if told by your dietitian. To do this: ?Avoid eating processed or pre-made food. ?Avoid eating fast food. Eat less animal protein, including cheese, meat, poultry, or fish, if told by your dietitian. To do this: ?Limit the number of times you have meat, poultry, fish, or cheese each week. Eat a diet free of meat at least 2 days a week. ?Eat only one serving each day of meat, poultry, fish, or seafood. ?When you prepare animal protein, cut pieces into small portion sizes. For most meat and fish, one serving is about the size of the palm of your hand. Eat at least five servings of fresh fruits and vegetables each day. To do this: ?Keep fruits and vegetables on hand for snacks. ?Eat one piece of fruit or a handful of berries with breakfast. ?Have a salad and fruit at lunch. ?Have two kinds of vegetables at dinner. Limit foods that are high in a substance called oxalate. These include: ?Spinach (cooked), rhubarb, beets, sweet potatoes, and [place] chard. ?Peanuts. ?Potato chips, polish fries, and baked potatoes with skin on. ?Nuts and nut products. ?Chocolate. If you regularly take a diuretic medicine, make sure to eat at least 1 or 2 servings of fruits or vegetables that are high in potassium each day. These include: ?Avocado. ?Banana. ?[place], prune, carrot, or tomato juice. ?Baked potato. ?Cabbage. ?Beans and split peas. Lifestyle Drink enough fluid to keep your urine pale yellow. This is the most important thing you can do. Spread your fluid intake throughout the day. If you drink alcohol: ?Limit how much you use to: ?0 1 drink a day for women who are not . ?0 2 drinks a day for men. ?Be aware of how much alcohol is in your drink. In the [place] one drink equals one 12 oz bottle of beer (355 mL), one 5 oz glass of wine (148 mL), or one 1 oz glass of hard liquor (44 mL). Lose weight if told by your health care provider. Work with your dietitian to find an eating plan and weight loss strategies that work best for you. General information Talk to your health care provider and dietitian about taking daily supplements. You may be told the following depending on your health and the cause of your kidney stones: ?Not to take supplements with vitamin C. ?To take a calcium supplement. ?To take a daily probiotic supplement. ?To take other supplements such as magnesium, fish oil, or vitamin B6. Take xckj-lsn-bydyyfq and prescription medicines only as told by your health care provider. These include supplements. What foods should I limit? Limit your intake of the following foods, or eat them as told by your dietitian. Vegetables Spinach. Rhubarb. Beets. Canned vegetables. Pickles. Olives. Baked potatoes with skin. Grains Wheat bran. Baked goods. Salted crackers. Cereals high in sugar. Meats and other proteins Nuts. Nut butters. Large portions of meat, poultry, or fish. Salted, precooked, or cured meats, such as sausages, meat loaves, and hot dogs. Dairy Cheese. Beverages Regular soft drinks. Regular vegetable juice. Seasonings and condiments Seasoning blends with salt. Salad dressings. Soy sauce. Ketchup. Barbecue sauce. Other foods Canned soups. Canned pasta sauce. Casseroles. Pizza. Lasagna. Frozen meals. Potato chips. Austrian fries. The items listed above may not be a complete list of foods and beverages you should limit. Contact a dietitian for more information. What foods should I avoid? Talk to your dietitian about specific foods you should avoid based on the type of kidney stones you have and your overall health. Fruits Grapefruit. The item listed above may not be a complete list of foods and beverages you should avoid. Contact a dietitian for more information. Summary Kidney stones are deposits of minerals and salts that form inside your kidneys. You can lower your risk of kidney stones by making changes to your diet. The most important thing you can do is drink enough fluid. Drink enough fluid to keep your urine pale yellow. Talk to your dietitian about how much calcium you should have each day, and eat less salt and animal protein as told by your dietitian. This information is not intended to replace advice given to you by your health care provider. Make sure you discuss any questions you have with your health care provider. Document Revised: 04/14/2022 Document Reviewed: 04/14/2022 [employer] Patient Education 2022 [employer]. Follow Up Care 01/16/2023 10:55:40 With:Diego RICKS, OUSMANE Bell, URO Address: When: Unknown [facility] 02-11-2023 Instructions Yocasta Garcias APRN.FARMWORKER FI[employer]OP - 02/11/2023 1:04 PM EDT PATIENT PREOPERATIVE INSTRUCTIONS Daisy Mendoza MD has scheduled you for your procedure at this surgery center: [facility]: [phone] --[address] [facility], [place] [address]. Please read below carefully for your personalized instructions. Dietary Restrictions: - No solid food after midnight. - You may have 12 ounces of clear liquids (water, clear juices such as apple juice or gatorade, carbonated beverages, clear tea, black coffee, jello) until 2 hours before scheduled arrival at facility. Is Patient Diabetic:Yes Preoperative Instructions for Patient's with Diabetes Mellitus Diabetic Medication Instructions:Please take the following meds at your usual dose the day before surgery. DO NOT TAKE THE MORNING OF SURGERY; , Metformin, Insulin Medication Instructions:Please take the following medications at your usual dose the day before surgery. DO NOT TAKE THE MORNING OF SURGERY: Lispro Medications: Unless instructed differently below, stay on all of your medications until your surgery. Approved medications to take the morning of surgery with a sip of water: Famotidine(Pepcid), If you take any medications for erectile dysfunction-Cialis (Tadalafil), Levitra, Staxyn (Vardenafil) Viagra (Sildenenafil please do not take these for 48 hours before surgery. If you start any new medications after today's visit, please contact the surgeon's office. Blood Thinning Medications: - Stop NSAIDS (Ibuprofen, Advil, Aleve, Motrin, Celebrex, Mobic, etc.) 7 days before surgery, as directed by your surgeon. - Stop Aspirin 7 days before surgery, as directed by your surgeon. - Stop Vitamin E, ALL multi-vitamins, herbals and dietary supplements 7 days before surgery. - You may take Tylenol (Acetaminophen) or any of your pain medications that do not contain aspirin or NSAIDS as needed. Important Reminders: - Candy, mints, and tobacco products are NOT permitted the morning of surgery. - Hearing aids, dentures and glasses may be worn the morning of surgery. - NO jewelry, body piercings, makeup, hairpins or contacts are to be worn the day of surgery. If you develop symptoms such as a fever, cold, or flu, or have other changes to your health within TWO DAYS of scheduled surgery or the morning of surgery, please contact the surgery center above. Personal Belongings: -Please have photo ID and insurance cards. -If you do not have a copy of advance directives on file with us, please bring a copy with you on the day of surgery. - Leave ALL valuables and money at home or with family members. For Outpatient Procedures: - YOU MUST HAVE A RESPONSIBLE RADIATION ONCOLOGY NURSE TAKE YOU HOME. A URBAN RENEWAL MANAGER OR CLINICAL REIMBURSEMENT SPECIALIST CANNOT BE MADE A RESPONSIBLE RADIATION ONCOLOGY NURSE. - We recommend that a responsible person stays with you overnight to take care of you. - You cannot stay in a hotel alone after outpatient surgery. You will not be permitted to have your surgery, if you do not have someone to take care of you. Arrival Time for Surgery: - The Surgery Center or hospital where you are having surgery will call the afternoon before surgery (or Thursday for Thursday surgery) with a scheduled arrival time. - If you have not heard by 4 pm, please contact the surgery center above. Please be aware that emergency situations arise, which may delay or change your surgical time. If this happens, we will notify you as soon as possible and regret any inconvenience. If you already have an Advance Directive, please fax a copy to [phone] or email to for it to be added to your chart. If you do not have an Advance Directive, you can find the appropriate form and more information at [email or web address]. We recommend that you complete the Advance Directive form found on the website and bring it with you the day of your surgery. It can be witnessed and scanned into your chart that day. Yocasta Garcias APRN.WILFREDO documented in this encounter [facility] 02-11-2023 History and physical note Images from the original note were not included. HISTORY AND PHYSICAL EXAMINATION SERVICE DATE: 02/11/2023 SERVICE TIME: 12:30 PM PRIMARY CARE PHYSICIAN: No primary care provider on file. REASON FOR VISIT: Patsy Mills is a 78 year old male who is scheduled for INSERTION CATHETER SUPRAPUBIC Laterality Anesthesia Op Region N/A Monitored Anesthesia Care Bladder Procedure: CYSTOSCOPY, INSERTION STENT URETERAL J at the request of Dr. Daisy Mendoza for consultation. My final recommendation will be communicated back to the requesting physician by way of shared medical record or letter. The patient has the following: ACTIVE PROBLEM LIST Bone Marrow Transplant Status (Hcc) Rheumatoid Arthritis (Hcc) Prostate Cancer (Hcc) Subjective CHIEF COMPLAINT: Urethral stricture HPI: a 77 year old male with urosepsis neurogenic bladder, R ureteral stricture. Patient has had multiple UTIs and episodes of urosepsis starting in Aug 2021 This prompted outlet procedure - urolift and then TURP . Patient has a history of Porstate CA s/p TURP Denies history of back surgery, radiation, weakness in arms or legs PAST MEDICAL HISTORY Diagnosis Date BPH (benign prostatic hyperplasia) Diabetes (HCC) Hypertension Kidney stones Multiple myeloma (HCC) OAB (overactive bladder) Prostate CA (HCC) Rheumatoid arthritis (HCC) PAST SURGICAL HISTORY Procedure Laterality Date BONE MARROW TRANSPLANT, ALLOGENEIC CYSTOSCOPY 11/2022 ESWL 2008 TRANSURETHRAL ELEC-SURG PROSTATECTOM 08/2022 UROLIFT PROSTATE PROCEDURE 04/2022 No family history on file. SOCIAL HISTORY: Social History Tobacco Use Smoking status: Former Packs/day: 2.00 Types: Cigarettes Quit date: 1979 Years since quittin.5 Smokeless tobacco: Never Substance Use Topics Alcohol use: Yes Comment: none since 1990 leydi Drug use: Not Currently MEDICATIONS: Prior to Admission medications as of <Not Reviewed> Medication Sig Last Dose Taking aspirin 81 mg chewable tablet mg tab(s), Chewed, Daily, Refills(s) 0 Yes atorvastatin (LIPITOR) 20 mg tablet Take by mouth. Yes famotidine (PEPCID) 20 mg tablet Take 20 mg by mouth. Yes metFORMIN ER (GLUCOPHAGE XR) 500 mg 24 hr tablet Yes oxybutynin ER (DITROPAN XL) 10 mg 24 hr tablet Yes MEN'S MULTI-VITAMIN ORAL Multi Vitamin Mens Active Yes Cholecalciferol, Vitamin D3, (D3-2000) 50 mcg (2,000 unit) cap Take by mouth. Yes Lactobacillus acidophilus (PROBIOTIC) 10 billion cell cap probiotic as directed Active Yes lisinopril (ZESTRIL) 10 mg tablet Take by mouth q 24 HR. Yes LANTUS SOLOSTAR U-100 INSULIN 100 unit/mL (3 mL) Yes insulin lispro (HUMALOG KWIKPEN) 100 unit/mL pen Inject 8 Units subcutaneously three times daily before meals. Plus sliding scale. Yes docusate sodium (STOOL SOFTENER) 100 mg capsule Take 100 mg by mouth twice daily as needed for constipation. Yes phosphorus (PHOSPHOROUS) 250 mg tablet Take 1 tablet by mouth three times daily. Yes No medication comments found. CURRENT ALLERGIES: ALLERGIES Allergen Reactions Mirabegron Diarrhea, GI Upset Gabapentin Rash COVID VACCINATION STATUS: Fully vaccinated REVIEW OF SYSTEMS: PAIN ASSESSMENT: General: No weight loss, malaise or fevers. Neuro: No history of TIA's, stroke, JV BASEBALL COACH tumor, impaired sensorium, hemiplegia, paraplegia or quadraplegia. No neurological symptoms or problems. Respiratory: Positive for Tobacco Use Former Smoker , History of RUDY s/p Uvulectomy Negative for No history of current cough or dyspnea, or pneumonia in the past 6 weeks. No history of respiratory/pulmonary symptoms or problems Cardiovascular: Positive for: HLD, Hypertension no history of angina, CHF, FL, cardiac surgery or stents. Denies rest pain, gangrene or revascularization/amputation for PVD. GI: Positive for GERD, Negative for Hepatitis, Liver disease, Pancreatitis : See HPI Endocrine: Diabetes Mellitus on insulin, Diabetes Mellitus on oral agent, Diabetic Neuropathy Hematology: Chronic anti-coagulation / platelet meds (Aspirin), Anemia of chronic disease Aranasp injections has received 6 injections following with Hematology Oncology: History of Prostate CA s/p TURP no chemo or radiation Multiple Myeloma s/p bone marrow transplant with chemo Psych: No history of psychiatric symptoms or problems. Musculoskeletal: Joint pain Skin: Negative for lesions, rash and itching. Objective PHYSICAL EXAM: VITALS: BP 149/52 Pulse 66 Temp (Src) 97.7 (Temporal Artery) Resp 16 Ht 5' 9 (1.75m) Wt 216 lb (98.0kg) SpO2 100% BMI 31.88 kg/(m^2). General: Alert and oriented, No acute distress, Healthy appearance Skin: Normal color, no rash, no lesions. HEENT: EOM, pupils equal, round and reactive., No carotid bruits Cardiovascular: Pulse regular. 2/6 mid systolic low pitched blowing murmur diffuse Lungs: Normal breath sounds, no wheezes or crackles. Abdomen: Soft, non-tender, no rigidity., Positive bowel sounds Extremities: No deformity, no edema or tenderness, no joint swelling or clubbing. Neurological: Normal cognition and motor skills. Gait normal. No weakness or sensory deficit. Walks with cane at home Pulses: Carotid and radial pulses normal +2. Diagnostic tests reviewed for today's visit: CBC auto differential Order: [id number] Component Ref Range & Units 6 d ago WBC 4.1 - 10.5 10*3/uL 5.5 UNCORRECTED WHITE BLOOD COUNT 4.1 - 10.5 10*3/uL 5.5 RBC 3.90 - 5.60 2.59 Low HEMOGLOBIN 13.0 - 17.0 g/dL 9.6 Low HEMATOCRIT 38.8 - 50.0 % 28.1 Low MCV 83.5 - 101 fL 108.4 High MCH 27.5 - 35.2 pg 37.0 High MCHC 32.5 - 35.6 g/dL 34.1 RED CELL DISTRIBUTION WIDTH, RDW 12.0 - 14.8 % 16.6 High PLATELET COUNT 150 - 450 10*3/uL 136 Low MEAN PLATELET VOLUME, MPV 6.6 - 10.1 fL 9.1 NEUTROPHILS, % . % 76.7 LYMPHOCYTES, % . % 13.1 MONOCYTES . % 6.0 EOSINOPHILS, % . % 3.9 BASOPHILS, % . % 0.3 NRBC 0 - 0.5 /100 0.1 NEUTROPHILS 1.8 - 7.7 10*3/uL 4.2 LYMPHOCYTES 1.00 - 4.8 10*3/uL 0.7 Low Monocytes 0.0 - 0.8 10*3/uL 0.3 EOSINOPHILS 0.0 - 0.45 10*3/uL 0.2 BASOPHILS 0.0 - 0.2 10*3/uL 0.0 Resulting [facility] Specimen Collected: 02/05/23 12:42 PM Last Resulted: 02/05/23 1:22 PM Received From: [facility] Etherios Result Received: 02/11/23 12:13 PM Comprehensive metabolic panel Order: [id number] Component Ref Range & Units 6 d ago Glucose 70 - 100 mg/dL 226 High Comment: Random Glucose Reference Range is dependent on time and content of last meal. Glucose of more than 200 mg/dL in a nonstressed, ambulatory subject supports the diagnosis of Diabetes Mellitus. ADA recommended reference range BUN 7 - 25 mg/dL 19 CREATININE 0.70 - 1.30 mg/dL 1.45 High ESTIMATED GFR 49.324 Sodium 136 - 145 mmol/L 140 Potassium, Bld 3.5 - 5.1 mmol/L 4.2 Chloride 98 - 107 mmol/L 109 High Carbon Dioxide 21.0 - 31.0 mmol/L 24.8 Anion Gap 6.0 - 15.0 10.4 Calcium 8.6 - 10.3 mg/dL 8.8 TOTAL PROTEIN 6.4 - 8.9 g/dL 5.8 Low ALBUMIN LEVEL 3.5 - 5.7 g/dL 4.2 GLOBULIN g/dL 1.6 ALBUMIN/GLOBULIN RATIO 2.6 BILIRUBIN,TOTAL 0.3 - 1.0 mg/dL 0.5 ASPARTATE AMINO TRANSFERASE 13 - 39 U/L 19 ALANINE AMINOTRANSFERASE 7 - 52 U/L 15 ALKALINE PHOSPHATASE 34 - 104 U/L 78 CREATININE CLR [facility] 51.98 Resulting Agency [facility] Specimen Collected: 02/05/23 12:42 PM Last Resulted: 02/05/23 4:22 PM Received From: [place] Result Received: 02/11/23 12:13 PM Echocardiogram Narrative Performed by [facility], [address] [place] [address] and TRANSTHORACIC ECHOCARDIOGRAM REPORT Patient Name: PATSY Barron MILLS Reading Physician: [id number] Janeth Diallo MD Study Date: 08/08/2020 Referring Physician: Zofia Tripp MD MRN/PID: [id number] PCP: Accession/Order#: [id number] Department Location: [place] [address] Date of : 1945 Fellow: Gender: M Nurse: Admit Date: 07/23/2020 Home Theater Expert: Sharifa Porter [facility] Admission Status: Inpatient - Additional Staff: Priority discharge Height: 172.72 cm CC Report to: [address] [place] [address] Weight: 83.92 kg Study Type: Echocardiogram BSA: 1.98 m2 Blood Pressure: 143 /64 mmHg Diagnosis/ICD: [id number], valve unspecified Indication: Vegetation Procedure/CPT: Echo Complete w Full Doppler-[id number] Patient History: Pertinent Stage III IgG Malden Multiple Myeloma, DM2, HTN, GERD, History: Neuropathy. Study Detail: The following Echo studies were performed: 2D, M-Mode, Doppler and color flow. PHYSICIAN INTERPRETATION: Left Ventricle: The left ventricular systolic function is normal, with an estimated ejection fraction of 60%. There are no regional wall motion abnormalities. The left ventricular cavity size is normal. There is mild concentric left ventricular hypertrophy. Spectral Doppler shows an impaired relaxation pattern of left ventricular diastolic filling. Left Atrium: The left atrium is normal in size. Right Ventricle: The right ventricle is normal in size. There is normal right ventricular global systolic function. Right Atrium: The right atrium is normal in size. Aortic Valve: The aortic valve was not well visualized. Suspect trileaflet. There is mild aortic valve cusp calcification. There is evidence of mild aortic valve stenosis. There is trivial aortic valve regurgitation. The peak instantaneous gradient of the aortic valve is 10.9 mmHg. Mitral Valve: The mitral valve is normal in structure. There is mild mitral annular calcification. There is trace mitral valve regurgitation. Tricuspid Valve: The tricuspid valve is structurally normal. There is trace tricuspid regurgitation. Pulmonic Valve: The pulmonic valve is structurally normal. There is trace pulmonic valve regurgitation. Pericardium: There is no pericardial effusion noted. Aorta: The aortic root is abnormal. There is mild dilatation of the ascending aorta. There is mild dilatation of the aortic root. Pulmonary Artery: The tricuspid regurgitant velocity is 2.35 m/s, and with an estimated right atrial pressure of 3 mmHg, the estimated pulmonary artery pressure is normal with the RVSP at 25.1 mmHg. Systemic Veins: The inferior vena cava appears to be of normal size. CONCLUSIONS: 1. The left ventricular systolic function is normal with a 60% estimated ejection fraction. 2. Spectral Doppler shows an impaired relaxation pattern of left ventricular diastolic filling. 3. Mild aortic valve stenosis. 4. No definite valvular vegetations were visualized. Electrocardiogram 12 Lead Component Ref Range & Units 2 yr ago Ventricular Rate BPM 82 Atrial Rate BPM 82 NC Interval ms 164 QRS Duration ms 114 QT Interval ms 380 QTC Calculation(Bazett) ms 444 P [place] degrees 3 R [place] degrees 16 T [place] degrees 26 QRS Count beats 13 Q Onset ms 213 P Onset ms 131 P Offset ms 183 T Offset ms 423 QTC Fredericia ms 421 Resulting Agency [facility] Narrative Performed by [facility] Normal sinus rhythm Normal ECG Confirmed by JANETH DIALLO MD ([id number]) on 08/26/2020 4:44:19 PM No results found for: HBA1C No new labs or tests Assessment/Plan HTN (hypertension) Assessment: stable on Lisinopril BP today 149/52 Hypercholesterolemia Assessment: stable on medication Benign prostatic hyperplasia with urinary obstruction Assessment: on Ditropan Stage 3 chronic kidney disease ([facility]) Assessment: stable per last labs Creatinine 1.45 Diabetes ([facility]) Assessment: on oral medication and insulin BS this AM 68 States run from 60-240 Bone marrow transplant status ([facility]) Assessment: history of bone marrow transplant with Chemo Prostate cancer ([facility]) Assessment: history of prostate CA s/p TURP No chemo or radiation Iron deficiency anemia Assessment: Following with Hematology Receiving Aranesp injections twice a month Rheumatoid arthritis ([facility]) Assessment: using OTC pain medication METS: Climb a flight of stairs or walk up a hill (5.50 METs) Do heavy work around the house, such as scrubbing floors, lifting or moving heavy furniture (8.00 METs) Patient denies any chest pain or undue shortness of breath with the above physical activity. Walks with cane ASA Class: 3 ANESTHESIA FINDINGS: Intubation History: No history of difficult intubation Significant Anesthesia Considerations: None Airway Exam: General: Normal appearance Mallampati Score is CLASS II s/p UPPP ULBT: Class II - Lower incisors can bite the upper lip below the radha line Neck: Normal appearance and function, Distance from hyoid to mentum during neck extension is at least 3 finger breaths, Short neck, thick neck Mouth: Normal tongue size and Mouth opening greater than 2 finger breaths Dentition: Intact Airway History: No abnormal airway history Sleep Apnea Probability Snores loudly: No Tired, fatigued or sleepy in daytime: Yes Stops breathing or choking/gasping during sleep: No High blood pressure: No Sleep Apnea Probability Score 02/10/2023 Sleep Apnea Screen V2 27 (Sleep study not recommended) PLAN This patient is optimally prepared for surgery. Patient is receiving Arnasp injections twice a month stable with Hematology CONSULTS: Patient does not require consults for optimization at this time. The Following Tests/Procedures Have Been Initiated: Orders Placed This Encounter aspirin 81 mg chewable tablet Sig: mg tab(s), Chewed, Daily, Refills(s) 0 atorvastatin (LIPITOR) 20 mg tablet Sig: Take by mouth. famotidine (PEPCID) 20 mg tablet Sig: Take 20 mg by mouth. metFORMIN ER (GLUCOPHAGE XR) 500 mg 24 hr tablet oxybutynin ER (DITROPAN XL) 10 mg 24 hr tablet MEN'S MULTI-VITAMIN ORAL Sig: Multi Vitamin Mens Active Cholecalciferol, Vitamin D3, (D3-2000) 50 mcg (2,000 unit) cap Sig: Take by mouth. Lactobacillus acidophilus (PROBIOTIC) 10 billion cell cap Sig: probiotic as directed Active lisinopril (ZESTRIL) 10 mg tablet Sig: Take by mouth q 24 HR. LANTUS SOLOSTAR U-100 INSULIN 100 unit/mL (3 mL) insulin lispro (HUMALOG KWIKPEN) 100 unit/mL pen Sig: Inject 8 Units subcutaneously three times daily before meals. Plus sliding scale. docusate sodium (STOOL SOFTENER) 100 mg capsule Sig: Take 100 mg by mouth twice daily as needed for constipation. phosphorus (PHOSPHOROUS) 250 mg tablet Sig: Take 1 tablet by mouth three times daily. Planned Anesthetic: MAC Instructions Given to Patient: Instructions located in the after visit summary. Patient given verbal and written preop instructions and voices comprehension and compliance. SIGNATURE: Yocasta Garcias APRN.CNP PATIENT NAME: Patsy Mills DATE: February 11, 2023 TIME: 12:30 PM documented in this encounter [facility] 01-23-2023 Progress note Note Date/Time January 22, 2023 2:34pm [facility] [place] [address] Hem/Onc Follow Up Note - OP Signed Patient: Patsy Mills MR#: [id number] : 1945 Acct:[id number] Age/Sex: 77 / M Type: REG RCR Copies to: MD Helen Ashton MD~ Subjective Date/Time of Service: Date of Service: 01/22/2023 Time of Service: 14:33 Chief Complaint: Patient is here today for a 5 month follow up visit and go overlabs HPI: 01/22/2023: Angel is here for 5-month follow-up with his --he has now been off Revlimid therapy since June 2022. He has an upcoming urodynamics procedure with his urologist [facility] next week. He has persistent unchanged fatigue from prior visits. We had requested addition of Aranesp 200 mcg every 2weeks to improve his hemoglobin and fatigue: His is concerned that they receive Dilaudid is not covering and we are checking with our financial agent as we proceed with approved. B12 and iron stores were within normal range and erythropoietin level met criteria for Aranesp therapy (09/03/2022: 409.2). He currently has stable hemoglobin 9.7, mild thrombocytopenia 112, renal function stable with creatinine 1.52 and creatinine clearance 46. Calciummildly low at 8.4, most recent serum and urine protein electrophoresis from 01/05/2023 with no M spike. Normal quantitative immunoglobulins with kappa 20.3,lambda 14, kappa/lambda ratio 1.45 which is normal. I recommended to continue to observe off Revlimid therapy and follow-up in 4 months with repeat labs for myeloma. We may also repeat his peripheral blood Clonoseq at that time and lieuof bone marrow biopsy. He will have 1 year follow-up skeletal survey in August2023. He may return sooner if new symptoms arise. Continue Aranesp, hold for hemoglobin greater than 10. Moderate complexity 35-minute follow-up visit for complex laboratory testing and follow-up of comorbidities. 09/03/2022: Angel presents with his for 5-week follow-up. He had a phone follow-up with Dr. Hall from July [address] Hall reviewedhis most recent myeloma labs showing no evidence of recurrence and bone marrow biopsy from July with undetectable clonality on Clonoseq testing. He has remained off Revlimid since June 27 due to persistent fatigue and has not hadany significant improvement of his anemia. We are going to continue to hold Revlimid and reassess his serum iron profile, methylmalonic acid, and homocystine. The patient remains on monthly B12 and last iron stores in December were elevated. I am also going to send an erythropoietin level for possible addition of Aranesp 200 mcg every 2 weeks to improve his hemoglobin. Otherwise he continues to have mild to moderate fatigue but has not had any dizziness or falls. He did undergo TURP with Dr. Cortez of urology at [facility] with some improvement of his urinary incontinence symptoms. He did not have any evidence of infection on urinalysis. He has follow-up with nephrology in 1 month. We will arrange CBC in 1 month and contact him with response to whichever intervention based on his labs (repleting iron, increasing B12, or adding Aranesp). He will defer follow-up with myeloma labs including serum and urine protein electrophoresis, quantitative immunoglobulins, and kappa/lambda light chain ratio to 4 months unless new symptoms arise. Moderate complexity 35-minute follow-up visit. 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 His primary complaint is urinary symptoms and increased urinary frequency - not sleeping well due to waking up frequently with urination. He is planning on undergoing TURP with Dr. Cortez this 07/31/2022. He is still fatigued, still not much energy or appetite; but overall no significant changes. He saw Dr. Hall on 07/03/2022 and his note was reviewed. He mentioned that it would bebeneficial for patient to continue Revlimid if able; he was also taken off Acyclovir and advised to follow up with Dr. Hall in 1 year with MRD testing. 06/27/2022: Patsy is here for followup to review Clonoseq testing that was still pending at last visit. He continues to have increased urine frequency andincontinence after prior Urolift surgery. He was given Mybetriq to manage urinefrequency but notes this was not well tolerated due to mouth sores, diarrhea, and headaches which improved after stopping the medication. No other concerningsymptoms although he has persistent fatigue and is frustrated with his quality of life. His Clonoseq returned at zero clonal cells. We noted since he has no evidence of disease in marrow and decreased quality of life, he will hold Revlimid x 1 month to see if symptoms improve. One month followup with [facility] to review labs and symptoms. He also has followup with Dr. Hall in one week and will inform him of plan for one month off Revlimid. He also may seek Urology second opinion. 05/23/2022: Noted to have Urolift procedure at [facility] last month, noted increased post-op pain that is slowly improving. On 05/16 he had injection of retinal hemorrhages for diabetic neuropathy. His bone marrow aspiration and biopsy for annual MRD testing was performed in interventional radiology on 04/30/2022, but specimen was not sent for Clonoseq MRD testing. No other new symptoms--12/2021: last M-spike negative and normal kappa/lambda light chain ratio. Bone marrow biopsy does not show morphologic evidence of myeloma but patient consented to bone marrow aspirate alone in clinic today to send for MRD testing. Other labs are stable--we will followup results in one month with repeat myeloma labs (serum protein electrophoresis, serum immunofixation, quantitative immunoglobulins, and kappa/lambda light chain ratio. Patient and agree with this plan over this low complexity 25 minute visit and 15 additional minutes for bone marrow aspiration. 02/05/2022: Patsy and his present for 1 month follow-up. No new symptoms--persistent stable fatigue. He underwent radiofrequency ablation of kidney stone by Dr. Seals at [place] on 01/14/2022 without complications. Sent off Revlimid since December 12, 2021 due to cytopenias. Otherwise no changes in clinical history. He is due for his second shingles shot and since he is otherwise stable with no recent infections he can receive his second dose. He did require transfusion of 2 units packed red blood cells for hemoglobin 6.7 on 01/23/2022. Hemoglobin has now improved to normal methylmalonic acid and homocystine, elevated iron saturation 72% and ferritin elevated to 663. Erythropoietin level was also elevated to 547.7 so he is not a candidate for erythrocyte stimulating agents. At this time I will continue to hold Revlimid since he has no evidence of M spike on his most recent serum protein electrophoresis or serum or urine immunofixation. Malden/lambda light chain ratio continues to decline to now 1.31 (normal). Due to his recent anemia we will hold his Revlimid another month and repeat his CBC in 1 month. If hemoglobin improving, we may consider resuming his maintenance Revlimid to 5 mg every other day. Next follow-up in April 2022 for repeat bone marrow biopsyin interventional radiology for specimen to be sent for minimal residual diseasetesting. I will follow-up with him 3 weeks thereafter for review of symptoms and bone marrow results, sooner as needed. 01/02/2022: Patsy and his are here for 3 month followup visit. She raised most of the concerns regarding worsening fatigue. He has been off He underwent a painful bone marrow by [facility] with Dr. Hall with nondiagnostic specimen. Dr. Hall recommended repeat bone marrow in the fall with MRD testing (we will set up with IR). I reviewed his f/u monoclonal gammopathy testing showing asymmetric gamma but no M-spike. Normal kappa/lambda light chain ratio. Hemoglobin declined to 8--elevated iron saturation and ferritin. I will check methylmalonic acid and homocysteine, erythropoietin, and may consider adding erythropoietin. Continue f/u with Dr. Crain. 10/03/2021: Patsy is here for 4-month follow-up of light chain myeloma. His brought me a thorough list of his recent hospitalizations since early August 2021. Recurrent weakness and dizziness as per chief complaint. --August 20 he was treated for UTI at [facility] ER, thenadmitted August 24 to [place] with dehydration and urosepsis with discharge August 29. 09/05/[address] Heath for continued antibiotics with Bactrim DS. Urine also returned positive for candidiasis and he was treated with fluconazole daily. He stopped his hydralazine and Lasix. --09/17/2021: He returned for labs and skeletal survey at [facility] and his potassium on blood work was markedly elevated. We contacted him and advised ER evaluation at [facility]. His potassium returned at 7.3 and he required hydration, calcium gluconate, insulin with bicarb, and had a negative Covid test. He was admitted and had unremarkable renal ultrasound, transfused 1 unit of blood for hemoglobin 7.3. Potassium and creatinine normalized and he was discharged home on 09/19/2021. Since that time he has had some improvement of energy but still has poor appetite and mild weakness. No fever, chills, or sweats. I will have him follow-up with nephrology and Dr. Heath for management of his potassium and creatinine. He denies any abdominal pain or bone pain and is otherwise compliant with maintenance Revlimid 5 mg daily. --Labs from 09/16/2021 did show mild elevation in creatinine 3.9 likely due to his electrolyte disturbances. His creatinine had increased from 1.29-2.11 likely due to dehydration. Serum M spike was not observed, but urine M spike was detected at 6.9. Urine immunofixation did not show monoclonal population and his urine M spike is likely due to his recent urinary infections. Serum kappa and lambda light chains were both elevated to 62.1 and 38.7 respectively with normal kappa/lambda ratio 1.6. Skeletal survey did not show any lytic lesions. At this time I would not change his maintenance Revlimid. He is due for follow-up with Dr. Hall at [facility] hematology in late October for 1 year follow-up bone marrow biopsy for MRD status. His next follow-up with me will be in 3 months or sooner as needed. 05/30/2021: 3 month followup--still no new symptoms. We discussed coronavirus booster, then flu vaccine, then will have post transplant vaccines in June. He is off gabapentin and rash resolved. Tolerates Revlimid 5mg daily. Stable kappa/lambda ratio--no M-spike serum and urine testing. Quant immunoglobulins normal. I will f/u with myeloma labs in 3 months--CBC, CMP, SPEP, quant IGs, kappa/lambda light chains and beta2 microglobulin. He and his are in agreement with this plan. Low complexity visit. 02/27/2021: Here for 3-month follow-up, prior autologous stem cell transplant 07/25/2020. No limitations of daily activities--normal appetite, denies pain. Previously noted increased rash over bilateral antecubital areas, chest and back. He is titrating off gabapentin due to improving neuropathy and rash mildly better. Still on Revlimid 5mg daily. Uses benadryl prn for pruritus andrash. Will contact for post transplant vaccines. Stable kappa/lambda ratio--no M-spike serum and urine testing. Quant immunoglobulins normal. I will f/u with myeloma labs in 3 months--CBC, CMP, SPEP, quant IGs, kappa/lambda light chains and beta2 microglobulin. He and his are in agreement with this plan. 11/26/2020: Patsy is here for followup after D86 bone marrow biopsy at [facility] on 10/18/2020. No evidence of MRD--0.5% plasma cells andno clonal plasma cells suggestive of residual myeloma. Tolerating maintenance Revlimid 5mg daily well. No bone pain and normal renal function--Dr. Vincent hasreleased for annual nephrology followup. He is fully vaccinated for [id number] and I contacted Dr. Hall for coordination of post transplant vaccines. Stable neuropathy with gabapentin escalated to 400mg am, 300mg midday, 400mg pm. Continues followup with palliative medicine. He has phone f/u with Dr. Hall later this week. I will f/u with myeloma labs in 3 months--CBC, CMP, SPEP, quant IGs, kappa/lambda light chains and beta2 microglobulin. He and his are in agreement with this plan. 10/15/2020: Patsy is here with his for transfer of care after Melphalan 100mg/m2 autologous stem cell transplant D0 = 07/25/2021. He is now D+83 and oneweek ago, he saw Dr. Hall for survivorship visit. We reviewed his post transplant course and prior infections have now resolved. Blood counts have recovered and renal function at prior baseline. He has persistent neuropathy ongabapentin 200mg am, 100mg noon, 200mg pm. I'm setting him up for palliative consultation (previously followed by WILFREDO Olivia). He has a followup bone marrow biopsy scheduled with Dr. Hall in 3 days to document remission. I will discuss with him the plan after bone marrow biopsy--I briefly discussed Revlimidmaintenance with Mr. Mills and his . I will contact patient after bone marrow results to confirm plan with Dr. Hall and f/u with him in about 6 weeks with myeloma labs. 07/02/2020: Patsy has completed all of his pretransplant evaluation at [facility] including cardiology visit 11 which showed ejection fraction 60%. I have contacted Dr. Hall who noted that today will be his last day of Velcade and we will hold his daratumumab. He was to have a COVID-19 teston 07/11/2020 for planned stem cell collection 07/17 and transplant on 07/23. I clarified with the staff at [facility] this this may be performed at [facility] and forwarded to them. 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 His pain mainly in hips is about 3 out of 10 and controlled with Percocet. His next follow-up with me yeni be in about 4 months when he is post transplant although I am happy to see him sooner if new issues arise in his post transplant course that need to bemanaged closer to home. His most recent labs reveal improving hemoglobin (11.5), stable renal function (creatinine 1.35), normal calcium, and appropriateresponse of kappa light chain to now normal 18 with K/L ratio 2.02. 06/04/2020: Met with Dr. Hall on 05/24/2020 to discuss planning for high-dose chemotherapy peripheral blood stem cell transplant. He has now hemodialysis independent after daratumumab, dexamethasone, and Velcade with addition of Revlimid. Today he reports that he has had increased neuropathy symptoms in hisbilateral hands and feet with mild interference with activity (grade 2). We discussed a 25% dose reduction of Velcade on day 1, day 4, day 8, day 11 with current cycle of DVdR. He has some leg cramps at night, with normal magnesium, but low iron saturation noted--will start daily iron for symptoms. Otherwise heis tolerating therapy well and creatinine is now normal. He was given educationfor the transplant course and he is scheduled in late June after [facility] to proceed with stem cell collection and transplant. I will communicate with Dr. Hall regarding end of therapy and in 1 month I will see him with follow-up myeloma studies. No other new concerns today. 05/07/2020: Patsy is here for 1 month follow-up. Outpatient hemodialysis was stopped after 04/24/2020 due to excellent response. He was evaluated by Dr. Small at [facility] on 04/26/2020. Angel and his note that Dr. Hall felt that he was physiologically about 8 years younger than his chronologic age and would likely be transplant eligible if pretransplant work-updeems this feasible. He recommended continuing current daratumumab and Velcade with low-dose Revlimid. He will reevaluate patient in 1 month and likely plan admission for stem cell collection, then high-dose chemotherapy/autologous stem cell transplantation in June or July. The patient's was concerned that she did not understand much of the pretransplant teaching and I explained to her and Don the pathophysiology of plasma cells, light chains, his improving trend of renal function, goal of 90% kappa/lambda ratio reduction prior to transplant. We also refilled Revlimid 5 mg every other day, weekly vitamin D, and I am giving him a trial of tramadol 50 mg every 12 hours as Tylenol is not effective for his pain and we are avoiding NSAIDs and additional aspirin. He otherwise has no toxicities of chemotherapy. He sees Dr. eHath for follow-up tomorrow and maintains insulin with stabilization of his blood sugars following with diabetes management clinic. I will see him in follow-up with myeloma labs in 1 month plan end of therapy prior to transplant. 04/09/2020: Here for one month f/u with his . He continues outpatient hemodialysis on Thursday//Saturdays. He notes fatigue, but generalized edema remarkably improved with no significant pain. I reviewed his M-spike, IgG and kappa light chains with K/L ratio that has remarkably improved (>90% reduction past month). [place] light chains decreased from 12,000 to 42. Only concern is significant hyperglycemia with dexamethasone. 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 I will coordinate evaluation by Dr. Quique Hall for HDC/autologous stem cell transplant evaluationand hold on adding Revlimid since significant response of light chains noted. Icontacted Dr. Rahman of nephrology to consider reducing hemodialysis days to twice weekly. I will send myeloma labs in about 4 weeks, have him see Dr. Gonzáles f/u with me the following week to review plan and determine whether plan forHDC/stem cell transplant. 03/14/2020: Patient presents with his today after initiating both outpatienthemodialysis on Thursday//Saturdays and initial cycle of daratumumab, bortezomib, dexamethasone with potential addition of Revlimid after 1 month if less than optimal response. He received his first cycle of combination chemotherapy 03/12/2020. --Patient tolerated initial daratumumab infusion reasonably well with brief infusion reaction (dizziness and mild wheezing) that was treated with diphenhydramine, steroids, albuterol, and Demerol for rigors. He completed remaining infusion in an outpatient bed on the inpatient [place] Thursday and we anticipate further weekly daratumumab infusions as an outpatient. --Patient was seen at dialysis today and noted to have hemoglobin 6.8. He will receive 1 unit of packed red blood cells prior to Velcade today for scheduled tomorrow. His was unable to be present at the hospital at time of diagnosis and his initial bone marrow biopsy was performed on 03/08/2020. She requests evaluation with him today for extensive questions regarding his care. She reported her session and requested a copy of this progress note following our visit today. 1. She asked if all the tests at the hospital returned. We discussed the teststhat are used to follow-up myeloma including his elevated IgG, elevated free kappa light chains, and elevated M spike. We discussed in detail the pathophysiology of myeloma but she felt very anxious and overwhelmed and I reassured her that we will readdress this at further follow-up visits. 2. Patient had a metastatic bone survey showing no areas of lytic disease or pathologic fractures. We discussed CRAB criteria for multiple myeloma diagnosisand that he meets criteria of R renal and A anemia, but not elevated calcium or bone disease (C and B). She specifically asked is stage of multiple myeloma andwe noted that he still will require beta-2 glycoprotein (ISS) but is most consistent with stage III. We are still awaiting his chromosomal abnormalities by fluorescence in situ hybridization and will readdress at next follow-up visitwith his final bone marrow biopsy results (this study was only performed 03/08/2020). 3. She wanted to know if his testing showed cancer elsewhere. We discussed that since metastatic bone survey showed more lytic areas I do not feel that F-18 PET is high priority but this may be ordered at some point to assess for any asymptomatic bony metastatic disease. 4. He has recently had elevated blood sugars and does not have a history of diabetes, but we discussed that with weekly steroids he should likely have additional insulin on his steroid days. I offered that this could be managed byhis primary physician Dr. Heath and he could be referred for diabetes management clinic. 5. We reiterated multiple times that his schedule may be variable. He will typically have a long infusion on Mondays with daratumumab but initially he willpresent twice weekly for Velcade injection on Mondays and . This will change during the course of his therapy and he should refer to his calendar. 6. We discussed not taking additional vitamins unless approved by nephrology. I also discussed potentially adding Revlimid and we will address at future visits if this is needed based on his follow-up labs ordered 04/02/2020. His medications may be filled either locally or with his prescription plan, but manyof these will be ordered by nephrology. He is to continue vitamin D2 as recommended by nephrology. Blood pressure medications will be regulated by primary care and nephrology. 7. We discussed concerning side effects, most commonly hyperglycemia, insomnia,risk of thrombosis (recently was diagnosed with left superficial thrombosis of the left upper extremity and additional heparin is given with his dialysis), andneuropathy with Velcade. Patients do not tend to have significant nausea or possible appetite (effects of dexamethasone increase his appetite). I cannot recommend medical marijuana and would discuss this with his pre coder whetherthis would interfere with dialysis. We will also follow closely for cytopenias and reviewed infectious precautions. He has a son from [place] who plans to visit on Thursday and we discussed COVID-19 testing appropriate social isolation protocols. 8. We discussed whether he was eligible for transplant and this will be evaluated based on his response and overall health in likely 3 to 4 months afterinitiation of therapy. We did not discuss autologous stem cell transplant in detail. We did discuss that although this is not curative therapy, many patients are controlled with medication over longer periods of time (often 5 to 6 years) with appropriate therapy. It is an aggressive cancer due to its significant infectious risk and association with renal failure. 9. Exercise may be performed as tolerated but should be done in moderation and likely we should wait a few weeks for more significant exercise given his recentdialysis and initiation of chemotherapy. I did not specifically address his diet but he may address this with our [facility] nutrition team. He will also receivechemotherapy class with our nurses in the infusion center. PRELIMINARY HISTORY (from initial consult 03/08/2020): This is a now 77-year-old male who was transferred from [place] emergency room by [facility] due to critical potassium 8.7 with elevated creatinine 11.2 and BUN 82 on 03/04/2020. We do not have any recent blood work for comparison but hehad normal creatinine in 2011. He was urgently treated for his hyperkalemia anddialysis was arranged emergently by nephrology team. He has now stabilized on dialysis and had extensive work-up for etiology of his acute renal failure with severe anemia felt to be due to anemia of renal insufficiency. Iron studies returned normal with ferritin 160, but B12 low at 84 and folate low normal at 5.2. He is receiving appropriate B12 repletion. The patient reports that he has had a prolonged period of fatigue up to a year and has decreased appetite with subjective weight loss. He denies any significant bone pain other than pain in his right shoulder and has no prior falls or recurrent back pain. He had a shoulder film showing labral pathology of the joint but no fracture or dislocation. Myeloma labs were sent showing M spike 3.6 g/dL with serum immunofixation showing IgG kappa light chain specificity. Serum IgG markedly elevated at 5312 and free kappa light chain 12,649.9 with normal free lambda light chain 11.94 free kappa/lambda ratio 1063. Hepatitis A, B, and C serologies were all negative and COVID-19 screening was negative. LORE, c-ANCA, p-ANCA, anti-GBM, and antimyeloperoxidase were all negative. Clinically the patient has multiple myeloma and I explained that we needed to proceed with bone marrow aspiration and biopsy to provide baseline for diagnosis and to expedite chemotherapy with an aggressive regimen to reduce his light chains. I will review information with him at noon today around the time of his bone marrow biopsy for combinationdaratumumab 16 mg/kg IV weekly, bortezomib 1.3 mg/kg subcu twice weekly, dexamethasone 40 mg weekly, and Revlimid 25 mg p.o. daily days 1 through 14 of each 21-day cycle. Revlimid will be ordered through a special pharmacy. We will schedule his infusions as an outpatient early next week on his nondialysis days. Written literature for these medications will be provided and he may signinformed consent so that we may order this regimen as an outpatient. The patient's is not with him today but has been treated by me for breast cancer in the past and had multiple questions. We would like to arrange a time for her to be available to ask questions and be present for chemo consent, possibly around noon today. This will need to be coordinated with nursing staff due to COVID-19 visitor restriction policy. - Summary of Therapies Summary of Therapies: Cycle 1 day 1 03/12/2020: Daratumumab 16 mg/kg IV weekly, bortezomib 1.3 mg/kg subcu twice weekly, dexamethasone 40 mg weekly. 04/09/2020: Under direction of Dr. Hall, in early April we added Revlimid 5 mg every other day of each 21-day cycle with cycle 2 due to excellent response of kappa light chains. 04/26/2020: Malignant hematology eval for possible high-dose chemotherapy/autologous stem cell transplant. He was able to stop dialysis 04/24/2020. Given Velcade only (hold daratumumab) on 07/02/2020. 07/25/2020: Melphalan 100mg/m2 IV day 0 autologous stem cell transplant 07/25/2020at [facility]. 11/26/2020: Follow-up bone marrow aspiration and biopsy 10/18/2020 for MRD evaluation shows hypocellular marrow with 0.5% plasma cells, no clonal population by flow cytometry but 0.03% kappa light chain skewing. Started Revlimid 5 mg daily for maintenance therapy early October 2020. Nondiagnostic bone marrow for MRD in spring 2021 at . Planned follow-up bone marrow biopsy for MRD at [facility] fall 2021. -- 02/05/2022: Revlimid on hold since 12/12/2021 for cytopenias. Continue to follow off Revlimid 1 more month, then with improved anemia in 02/2022, we resumed 5 mg every other day maintenance. -- 06/27/2022: Holding Revlimid 5mg every other day one month due to undetectable clonal cells on Clonoseq, increased fatigue/urinary symptoms. --07/28/2022: Continue to HOLD Revlimid for time being; as patient is still fatigued and s/p TURP with Dr. Cortez of urology at [place] 08/27/2022. 08/2022: Added Aranesp 200 mcg subcu every 2 weeks for anemia chronic kidney disease, hold for hemoglobin greater than 10 ROS Details: All systems reviewed & no additional complaints except as documented Subjective/ROS - Narrative: CONSTITUTIONAL: Mild persistent chronic fatigue since HD Melphalan/ASCT 07/2020,negative for fever or night sweats. Post-transplant infections as per HPI, now resolved. HEAD AND NECK: Stable vision since control of his diabetes mellitus. Negative for changes in hearing. Negative for mouth ulcers, nasal congestion and nasal drainage. PULMONARY: Negative for chest pain, cough and dyspnea. CARDIOVASCULAR: Negative for claudication and irregular heartbeat/palpitations. Resolved edema since diagnosis, now off dialysis. GASTROINTESTINAL: Negative for abdominal pain, constipation, diarrhea, nausea orvomiting. Improved appetite and 20 kg weight loss after starting dialysis, chemotherapy, and transplant for light chain nephropathy. 11/2020--returned to baseline weight pretransplant. GENITOURINARY: Negative for dysuria and hematuria. Improved urinary output, diagnosed in February 2020 with renal failure requiring dialysis--off dialysis 04/24/2020. Prior nephrolithiasis previously followed by Dr. Seals--recent ESWL 01/14/2022 at [place]. Scheduled for urodynamic study at [facility] in mid January. ENDOCRINE: Negative for cold intolerance and heat intolerance. Improvement of prior hyperglycemia with home blood sugars in the 100-200s on supplemental insulin glargine. CENTRAL NERVOUS SYSTEM: Negative for gait disturbance and headache. No focal neurologic deficits or history of stroke. 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 PSYCHIATRIC: Negative for anxiety or depression. DERMATOLOGICAL: Positive for pruritus and rash as per HPI. Negative for suspicious skin lesions. MUSCULOSKELETAL: Resolved back pain and and thigh pain. Resolved leg cramps, improved neuropathy. No longer on ferrous sulfate post transplant. HEMATOLOGICAL: Negative for bleeding and easy bruising. Transfusion 2 units packed red blood cells 01/23/2022 for hemoglobin 6.7. Only other transfusion was 2 units red cells October 2021. Positive for left basilic vein thrombus on Doppler ultrasound 03/12/2020--no longer requires anticoagulation. Revlimid decreased to 5mg every other day--held since 06/27/2022. ALLERGY: Negative for environmental allergies and food allergies. [facility] - History Attestation statement: The following information was validated with the patient. Source: Old Records Reviewed - Medical History Medical History: Medical History (Last Reviewed 01/23/23 @ 08:35 by Brook Huddleston MD) Apnea Arthritis Diabetes mellitus, type 2 Hyperlipidemia Hypertension Kidney stones Multiple myeloma Skin cancer - Family History Family History: Family History (Last Reviewed 01/23/23 @ 08:35 by Brook Huddleston MD) Sister Myocardial infarct Mother Myocardial infarct Father Skin cancer - Social History Smoking Status: Former smoker Tobacco Type: cigarettes Substance Use Type: None Home Medications & Allergies Allergies gabapentin Allergy (Verified 01/22/23 14:26) Rash mirabegron [From Myrbetriq] Adverse Reaction (Verified 01/22/23 14:26) Diarrhea Home Medications insulin glargine 100 unit/mL (3 mL) subcutaneous pen (Lantus Solostar U-100 Insulin) 25 unit subcut DAILY 04/27/20 [History Confirmed 01/22/23] insulin lispro 100 unit/mL subcutaneous pen (Humalog KwikPen (U-100) Insulin) 6 - 16 unit subcut DIRECTED 04/27/20 [History Confirmed 01/22/23] atorvastatin 20 mg tablet 20 mg PO DAILY 10/15/20 [History Confirmed 01/22/23] cholecalciferol (vitamin D3) 50 mcg (2,000 unit) capsule (Vitamin D3) 50 mcg PO DAILY 10/15/20 [History Confirmed 01/22/23] aspirin 81 mg tablet,delayed release 81 mg PO DAILY 11/26/20 [History Confirmed 01/22/23] metformin 500 mg tablet 500 mg PO BID 11/26/20 [History Confirmed 01/22/23] oxybutynin chloride 5 mg tablet 2.5 mg PO DAILY 07/28/22 [History Confirmed 01/22/23] famotidine 20 mg tablet 20 mg PO DAILY 09/03/22 [History Confirmed 01/22/23] lisinopril 10 mg tablet 10 mg PO DAILY 01/22/23 [History Confirmed 01/22/23] Objective - Height/Weight Height/Weight: Height 5 ft 10 in Weight 109.316 kg BSA for Today's Weight 2.10 - Vital Signs Vital Signs: 01/22/23 14:29 Temperature 97.8 F Pulse Rate [Monitor] 68 Respiratory Rate 16 Blood Pressure [Left Arm] 118/80 02 Sat by Pulse Oximetry 98 Oxygen Delivery Method Room Air - Pain Right Hip Pain Intensity: 5 Generalized Pain Intensity: 1 Left Upper Arm Pain Intensity: 4 Physical Exam Narrative: CONSTITUTIONAL: The patient is in no acute distress. Stable fatigue but can ambulate independently. HEAD / FACE: Normocephalic. EYES: Pupils are equal and reactive to light. Conjunctivae and lids are benign in appearance. Ocular movement intact. EARS: Hearing grossly intact. NOSE / MOUTH / THROAT: Nose, mouth, tongue and oropharynx are benign in appearance. No signs of inflammation. NECK / THYROID: Neck is supple. Thyroid is symmetrical, without thyromegaly, masses or palpable nodules. LYMPHATIC: No palpable cervical, supraclavicular, axillary, or inguinal adenopathy. RESPIRATORY: Normal to inspection. Lungs clear to auscultation and percussion. No wheezing, rales, rhonchi or rubs. Normal effort. CARDIOVASCULAR: Regular rate and rhythm. No murmurs, gallops, or rubs. VASCULAR: Carotid, radial, femoral and pedal pulses present bilaterally. No bruits. ABDOMEN: Bowel sounds normoactive. Soft, nontender and non-distended. No hepatosplenomegaly. No masses. GENITOURINARY: No CVA tenderness. No suprapubic fullness or tenderness. No groinadenopathy. No evidence of hernias. INTEGUMENTARY: The skin is unremarkable. Resolved antecubital/chest rashes. No suspicious lesions BACK / SPINE: The back is nontender. No step-off deformity. No CVA tenderness. MUSCULOSKELETAL: Normal musculature, no joint deformities or abnormalities, normal range of motion for all four extremities. EXTREMITIES: No longer has bilateral lower extremity edema; no cyanosis or clubbing. No Vitor sign. NEUROLOGICAL: Alert and oriented. Cranial nerves intact. No gross motor or sensory deficits. PSYCHIATRIC: No anxiety or evidence of depression. - ECOG Performance Status ECOG Score: 2 - Fatigue Results - Labs Labs: Diagram of Most Recent CBC and CMP 01/22/23 11:45 01/22/23 11:45 Labs - Last 7 Days 01/22/23 11:45: PHA Creatinine Clear 46.35, Sodium 140, Potassium 4.3, Chloride 107, Carbon Dioxide 26.4, Anion Gap 10.9, BUN 19, Creatinine 1.52 H, Est GFR (CKD-EPI) 46.902, Glucose 216 H, Calcium 8.4 L, Total Bilirubin 0.5, AST 16, ALT16, Alkaline Phosphatase 87, Total Protein 6.0 L, Albumin 4.1, Globulin 1.9, Albumin/Globulin Ratio 2.2 01/22/23 11:45: Corrected WBC 5.0, Uncorrected WBC Count 5.0, RBC 2.61 L, Hgb 9.7 L, Hct 28.4 L, MCV 108.9 H, MCH 37.3 H, MCHC 34.3, RDW 16.3 H, Plt Count 112L, MPV 9.8, Neut % (Auto) 72.9, Lymph % (Auto) 17.1, [place] % (Auto) 6.4, Eos % (Auto) 3.3, Baso % (Auto) 0.3, Nucleat RBC Rel Count 0.0, Neut # (Auto) 3.6, Lymph # (Auto) 0.9 L, [place] # (Auto) 0.3, Eos # (Auto) 0.2, Baso # (Auto) 0.0 - Impressions BILATERAL RENAL AND BLADDER ULTRASOUND CLINICAL HISTORY: History of right-sided hydronephrosis and kidney stones. COMPARISON: Renal ultrasound 12/01/2022 Estimation of renal size is approximately 10.53 cm on the right and 10.72 cm onthe left. No contour deforming mass, shadowing stone or hydronephrosis. The urinary bladder demonstrates Bond decompression. US/US renal BI IMPRESSION: INTERVAL RESOLUTION OF THE RIGHT-SIDED HYDRONEPHROSIS SINCE THE PRIOR ULTRASOUNDSTUDY. 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 He had marked elevation in IgG kappa on initial laboratory work-up for renal failure in February 2020. He has remained hemodynamically stable and I discussed in detail with the patient the pathophysiology of multiple myeloma and associated injury to kidneys, persistentanemia, bone disease, and potential hypercalcemia (we do not see hypercalcemia in this patient). He consented to inpatient bone marrow biopsy 03/08/2020 which was diagnostic for multiple myeloma--70% plasma cells without amyloid depositionidentified in small marrow specimen. Normal baseline skeletal survey. I reviewed pathophysiology of myeloma, results of bone marrow biopsy, skeletal survey, and myeloma labs with the patient and his . --Patsy consented to begin first cycle Daratumumab, Velcade, and dexamethasone on 03/12/2020--other than infusion reaction from first Daratumumab, improved withsymptomatic therapy. I reviewed his case with Dr. Quique Hall of Malignant Hematology--added Revlimid 5mg qod following significant reduction of light chains in early April 2020. 05/07/2020: As per HPI, Angel and his met with Dr. Hall 04/26/2020 with preparation for likely high-dose chemotherapy/autologous peripheral stem cell transplant if he meets criteria based on cardiopulmonary work-up. He has had greater than 90%. The patient was able to discontinue hemodialysis on 04/24/2020 and has not had any recurrence of edema with now improved renal function, creatinine clearance now 53. --I will continue current therapy with further evaluation by Dr. Hall in 1 month for planning his HDC/autologous stem cell transplant. We will send repeatmyeloma labs (SPEP, IgG, kappa/lambda light chains) in 4 weeks with f/u visit with me the following week to review results as well as evaluation with Dr. Hall for possible stem cell transplant. 06/04/2020: Tolerating chemotherapy well other than increasing neuropathy of hands and feet. Dose reduced Velcade by 25% next cycle. Added daily ferrous sulfate. --He was referred to diabetes management clinic and sees Dr. Heath with regularfollow-up by Dr. Rahman since he is off dialysis. Diabetes control improved. 07/02/2020: Last dose of Velcade today. Neuropathy is stable and pain is well controlled. He will have COVID-19 test on 07/11/2020 for planned admission for stem cell collection on 07/17/2020 then high-dose melphalan followed by peripheral blood stem cell transplant day 0 scheduled 07/23/2020. His next follow-up with me will be in about 4 months after he is completed day 100 transplant follow-up. He may return sooner as needed. 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 Melphalan 100mg/m2 + ASCT Day 0 07/25/2020. 11/26/2020: Followup of [facility] end of therapy bone marrow biopsy 10/18/2020--no minimal residual disease. Started Revlimid maintenance 5mg daily in early October2020. 02/27/2021: No new symptoms other than rash. Slow improvement of neuropathy--titrating off gabapentin with palliative medicine. Benadryl for rash. Continue Revlimid 5mg daily. He will be due for first post transplant vaccines sooner--will check schedule with . 05/30/2021: Rash and neuropathy improved. Tolerating Revlimid well. Discussedcoronavirus booster and influenza vaccines. Post transplant vaccines due in 07/2021. No M-spike and normal kappa/lambda ratio. 10/03/2021: Multiple admissions for hyperkalemia, renal insufficiency due to dehydration, anemia requiring transfusion. Still feels weak and dizzy and his electrolyte disorders are being managed by primary care. No detectable M spike's and kappa/lambda light chain ratio is normal with elevated levels of both likely due to recent infections. Skeletal survey without new lytic lesions. He is due for MRD bone marrow follow-up with Dr. Hall next month. For now continue Revlimid 5 mg daily. 01/02/2022: Patient presents with his who is concerned with increasing fatigue. He has had a decline in his hemoglobin to 8 although his renal function is actually improved from prior values with creatinine clearance of 50. We sent serum iron profile showing increased iron stores with iron saturation 72% and ferritin 663. Homocystine was normal methylmalonic acid is pending. [facility] also send an erythropoietin level to see if there may be a benefit to adding erythropoietin for anemia of chronic kidney disease. He will continue to follow with Dr. Meade. He still has no M spike on serum protein electrophoresis and normal kappa/lambda light chain ratio. MRD testing at [facility] was nondiagnostic and he will have repeat bone marrow biopsy here with me to send MRD testing. Next followup with me in 3 months for exam and f/u myeloma labs. We will coordinate his bone marrow biopsy at that time. He will continue follow-up by nephrology for chronic kidney disease although his prior hyperkalemia has improved on recent labs. May return sooner if new issues arise. 02/05/2022: Patient has persistent fatigue although did require transfusion 2 weeks ago for hemoglobin 7.6. Iron studies show increased iron saturation and ferritin with normal methylmalonic acid and homocystine. Erythropoietin level is elevated therefore he does not have an indication for erythrocyte stimulating agents. Myelosuppression is likely due to prior Revlimid and I will keep him off therapy for another 1 month with repeat CBC at that time. If anemia is improving I will resume Revlimid at 5 mg every other day maintenance therapy. He will be scheduled for MRD bone marrow at [place] [facility] in April 2022, then follow-up with me with review of myeloma labs 3 months after this procedure. He still has undetectablemonoclonal spike and normal kappa/lambda light chain ratio on most recent labs. Renal function is improving since ESWL at [place] in late December. 05/23/2022: No new issues, bone marrow biopsy 04/30/2022 in IR shows no morphologic evidence of myeloma, but specimen was not sent for MRD testing. Patient agreed to bone marrow aspirate only today performed for MRD testing and documented in a separate procedure note. Normal trilineage hematopoiesis on bone marrow biopsy with increased iron stores. Revlimid now down to 5mg every other day. Will review MRD testing with myeloma labs (SPEP for monoclonal spike and kappa/lambda light chain ratio) at next followup in 4 weeks. Considerfurther Revlimid dose reduction if persistent anemia on CBC with CMP and if MRD negative. 06/27/2022: Notes increased fatigue and increased urine frequency despite recent Urolift procedure. Intolerant of Myrbetriq. Clonoseq reveals no clonal tumor cells. Recommend holding Revlimid 1 month for cytopenias and persistent fatigue due to quality of life concerns. He will followup with Dr. Hall next week to discuss holding Revlimid. If symptoms improved at one month followup with [facility], he will followup with me in one month with CBC, CMP, SPEP for monoclonal spike and kappa/lambda light chain ratio. 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 His primary complaint is urinary symptoms and increased urinary frequency - not sleeping well due to waking up frequently with urination. He is planning on undergoing TURP with Dr. Cortez this 07/31/2022. He is still fatigued, still not much energy or appetite; but overall no significant changes. He saw Dr. Hall on 07/03/2022 and his note was reviewed. He mentioned that it would bebeneficial for patient to continue Revlimid if able; he was also taken off Acyclovir and advised to follow up with Dr. Hall in 1 year with MRD testing. - follow up in [address] Huddleston with CBC, CMP, SPEP for monoclonal spike and kappa/lamda light chain ratio. - continue to hold Revlimid pending urology procedure and continued fatigued. Dr. Hall discussed resuming Revlimid if able- per , he discussed decreasingdosage to 2.5 mg. - most recent labs show stable renal fxn; continued anemia with hgb - 8.6 and platelet count 101,000. No monoclonality with urine immunofixation; recent SPEP showed asymmetrical beta. 09/03/2022: Patsy has no new symptoms. Urinary symptoms have improved since TURP with Dr. Cortez 06/27/2023. No evidence of infection on urinalysis. Fatigue is slowly improving off Revlimid the last 2 months. He does have persistent anemia with hemoglobin 8.1, persistent macrocytosis. I am rechecking his methylmalonic acid and homocystine as he is on monthly parenteral B12 but we mayneed to give him further loading doses over the next 8 weeks if elevated methylmalonic acid and homocystine. I am also rechecking his iron studies although his last iron saturation in December was 72% with elevated ferritin. If he has normal or elevated iron stores and normal B12 and folate stores, we will assess his erythropoietin level for possible Aranesp therapy for anemia of chronic kidney disease. He follows up with nephrology next month. We will defer his next follow-up with myeloma labs CBC, CMP, SPEP/serum immunofixation for monoclonal spike, quantitative immunoglobulins, and kappa/lambda light chainratio to 4 months or sooner as needed. The patient is are in agreement with this plan over this 35-minute follow-up visit. 01/22/2023: Patsy has had persistent urinary symptoms and has a urodynamic study scheduled next week. He otherwise has not had bone pain and has continued fatigue. We had ordered Aranesp therapy due to erythropoietin level less than 500 but the patient's notes that they received a letter that this was not covered. We will check with our financial navigator to confirm. Due to his persistent fatigue and hemoglobin less than 10 with chronic kidney disease he should continue Aranesp therapy and we will hold if hemoglobin greater than 10. He otherwise has stable renal function with creatinine clearance 46, no M spike in the peripheral blood or urine, normal quantitative immunoglobulins, normal kappa/lambda light chain ratio. We will defer his next follow-up to 4 months with his myeloma studies including CBC, CMP, serum protein electrophoresis with immunofixation, quantitative immunoglobulins, and kappa/lambda light chains. Víctorwill also coordinate Clonoseq assay of the peripheral blood to determine if he has any clonal tumor cells. We will continue to hold Revlimid until that time. I will defer bone marrow biopsy unless significant change in his cytopenias or detectable M spike. Defer his skeletal survey until August 2023 unless new bone pain arises. Patient and his are not in agreement with this plan overthis 35-minute moderate complexity follow-up visit. (2) Anemia of renal disease Hemoglobin has decreased to 8 and iron stores show increased iron saturation andferritin. He no longer takes supplemental iron but has ongoing B12 repletion 1 mg p.o. daily. Methylmalonic acid is pending to assess whether B12 repletion isadequate. We are also sending an erythropoietin level and if methylmalonic acidis normal, we will initiate erythropoietin therapy for anemia of chronic kidney disease. I will update nephrology if decision to add erythrocyte stimulating agent therapy. I will contact him with these results and coordinate repletion therapy. In addition the patient is on chronic Revlimid which it is myelosuppressive. -- Revlimid has was on hold 12/12/2021. He did require transfusion in early Januaryand had elevated iron saturation and ferritin, normal methylmalonic acid and homocystine, and increased erythropoietin level. We resumed Revlimid in early February. MRD bone marrow aspirate sent today--no dysplasia on bone marrow biopsy. For now may continue Revlimid 5mg every other day and consider further dose reduction if persistent anemia with MRD negative on f/u in one month. --As noted above we are holding Revlimid one month due to quality of life concerns and cytopenias. If improved symptoms at one month followup off Revlimid, we may continue to hold Revlimid and follow every 3 months. -- Slowly improving symptoms off Revlimid x 2 months, however anemia is slightlyworse with hemoglobin 8.1. -- 01/22/2023: We previously prescribed Aranesp 200 mcg subcu every 2 weeks due tonormal B12, folate, and iron stores. Erythropoietin level returned less than 500 which made him eligible for Aranesp for anemia of chronic kidney disease. Current hemoglobin is 9.7 and he should receive Aranesp and hold for hemoglobin greater than 10. We will continue off Revlimid until recurrent M spike or detectable clonal tumor cells. (3) History of hemodialysis Initiated inpatient hemodialysis 02/2020, then transitioned to outpatient hemodialysis 3 times weekly Thursday//Thursday schedule. Chemotherapy given Thursday/. 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 He was actually able to stop dialysis within 2 months with the last session 04/24/2020 as noted above. Nearly 3 years after Melphalan 100mg/m2 + autologous PBSCT given his significantresponse to initial myeloma directed therapy. Continued f/u with nephrology for stage III chronic kidney disease/resolved hyperkalemia. (4) Steroid-induced diabetes mellitus Qualifiers: Encounter type: subsequent encounter Qualified Code(s): E09.9 - Drug or chemical induced diabetes mellitus without complications; T38.0X5D - Adverse effect of glucocorticoids and synthetic analogues, subsequent encounter Patsy had an excellent response of light chains but was noted to have significant hyperglycemia 300-500 fasting blood sugars. He was referred to diabetes management clinic with addition of insulin therapy that has significantly improved control of his blood sugars. Patient also had remarked on some blurred vision that improved with control of blood sugars. Continue follow-up of blood sugars during admission for transplant in early July. 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 Resumed low dose metformin and titrating down insulin--directed by his primary physician. Recent injection (likely Avastin) for diabetic retinopathy. (5) History of anemia due to vitamin B12 deficiency Patient was found to have B12 deficiency and was been placed on daily B12 prior to hospital discharge. We continued weekly IM B12 for 8 weeks with his myeloma regimen. Hemoglobin is improved on Aranesp and weekly B12, then changed to monthly maintenance therapy. He has not required further blood transfusions since 03/15/2020. Follow-up methylmalonic acid on 04/30/2020 was normal showing adequate replacement. He will continue monthly IM B12 and weekly vitamin D2 therapy 50,000 units orally for low 25 hydroxy vitamin D stores. He may take supplemental calcium once daily. -- 09/03/2022: Repeat methylmalonic acid, homocystine returned normal. We will continue monthly B12 but may need further loading doses in the future if worsening anemia (6) Urinary incontinence Patient had prior UroLift procedure and [facility]. We will continue to follow at future visits. (7) Encounter for coordination of complex care Started cycle 1 day 1 03/12/2020: Daratumumab 16 mg/kg IV weekly, bortezomib 1.3 mg/kg subcu twice weekly, dexamethasone 40 mg weekly. We added Revlimid 5 mg every other day of each 21-day cycle with cycle 2 due to excellent reduction of kappa light chains (recommended by Dr. Hall malignanthematology). 06/04/2020: 25% DR Bortezomib (100% all other meds) due to worsening neuropathy. Last dose of bortezomib 07/02/2020 and holding daratumumab per request of Dr. Hall. 07/25/2020: Melphalan 100mg/m2 + autologous PBSCT 10/18/2020: Started Revlimid 5 mg daily maintenance after bone marrow biopsy negative for MRD. Repeat MRD bone marrow at [facility] in 3 months because spring 2021 bone marrow at was nondiagnostic. -- Revlimid on hold 12/12/2021 due to myelosuppression. Continue to hold at 02/05/2022 follow-up visit. Resumed 5mg po every other day around February 2022 and will continue for now pending MRD testing. 06/27/2022: Now holding Revlimid due to fatigue and undetectable Clonoseq. 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 - planning to hold Revlimid with pending urology procedure for additional month;reviewed Dr. Hall's note from 07/03/2022; he mentioned it would be beneficial for patient to continue Revlimid if able - possibly at lower dose of 2.5 mg. Address at next follow up visit with labs in 1 month. 09/03/2022, 01/22/2023: Continue to hold Revlimid; added Aranesp 200 mcg subcu every 2 weeks as needed for hemoglobin less than 10 after anemia work-up noted above. - Chemo Plan Chemo Plan (Dose, Rate, Freq): 09/25/2019: Melphalan 100mg/m2 + autologous PBSCT-->10/2020 Revlimid 5mg daily maintenance after MRD bone marrow biopsy. On hold 12/12/2021 due to anemia then 02/2022 resumed 5mg every other day. 06/27/2022: Revlimid on hold due to fatigue, cytopenias, and undetectable Clonoseq 09/03/2022: Holding Revlimid past 2 months due to persistent anemia. Continue tohold until recurrent M spike, symptoms, or clonal population on peripheral bloodtesting. Also added Aranesp 200 mcg subcu every 2 weeks and will hold for hemoglobin lessthan 10 Goal of Treatment: Control - Time with Patient Time Spent with Patient (Follow Up Visit): 35 minutes - review labs and planned followup, continue to hold Revlimid Coordination of Care & Counseling Time: Greater than 50% of time spent with patient was for coordination of care (as documented) and [id number] counseling of patient and/or family. Dictated By: Brook Huddleston MD DD/ [id number] Signed By: <Electronically signed by MD Brook Huddleston> 01/23/23 [address] [facility] Work Phone: [phone] 250-948806-05-2023 NoteHNO ID: [id number] Author: Samir Aparicio MD Service: ? Author Type: Physician Type: Progress Notes Filed: 01/19/2023 2:11 PM Note Text: VIRTUAL VISIT FOLLOW UP PATIENT: Patsy Mills [id number] 01/19/2023 I have communicated my name and active licensure. The patient's identity and physical location were verified at the time of this visit. Either the patient or their legal underwriting service representative has been informed of the risks and benefits of -- and alternatives to -- treatment through a remote evaluation and consents to proceed with the evaluation remotely. This is a virtual visit using Deem video visit. It required patient-provider interaction for the medical decision making as documented below. Chief Complaint: Prostate Cancer History of Present Illness: Patsy Mills is a very pleasant 77 year old male who has h/o CKD, HTN, RA, BPH with obstruction, microscopic hematuria, Nephrolithiasis, Multiple Myeloma- s/p bone marrow transplant now taking Aranesp, Chronic UTI and sepsis since Aug 2021, OAB, Hydroureteronephrosis, right ureteral stricture and GG2 prostate cancer. No recent PSA found 03/02/09- ESWL 08/05/12- Cysto- stone basket- stent 08/30/12- stent removal 05/05/22- Urolift -symptoms worsened - Nocturia q 30 min. 08/27/22- TURP chips- with favorable intermediate risk prostate cancer identified - on active surveillance ([place] 3+4, chips involved. PSA 1.5) 10/2022- UDS at [facility] [place]:42ml voided, Qmax 5ml/s, maximum detrusor recording 14 (unclear if this is w permission to void or if this represents poor compliance). 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 Mendoza Per Dr. Taty Feliciano 01/07/23 visit- recommendation for Prostate Ca: - - radiation (risk of worsening bladder function) - cystoprostatectomy conduit - will refer to one of my onc colleagues to discuss this further Labs and Pathology: 01/05/23- Scr 1.33 Diagnosis (C61) Prostate cancer (HCC) (primary encounter diagnosis) (N13.5) Acquired ureteral stricture (N31.9) Neurogenic bladder (N40.1, N13.8) Benign prostatic hyperplasia with urinary obstruction Assessment and Plan: This is a 77 year old male with MM sp BM txp, urosepsis and uti sp urolift and TURP with incidental GG2 prostate cancer, neurogenic bladder, R ureteral stricture. For prostate cancer, we have a long discussion about the active surveillance as an option for GG2 prostate cancer. It seems that the PSA has been relative low, with the last one (according the progress notes) around 1.5. Unfortunately, given the past surgical story of the Urolift an MRI will not be very helpful, specially in the mid base of the prostate due artifact. I recommend continue monitoring the PSA in case of an uptrend, then a new biopsy. We discussed the option of prostatectomy along the possible cystectomy, he is not interested at this time Ureteral stricture and neurogenic bladder, under the management of Dr Mendoza This visit was conducted as a video visit I spent a total of 30 minutes on the date of the service which included preparing to see the patient, [id number] patient care, completing clinical documentation, obtaining and/or reviewing separately obtained history, performing a medically appropriate examination, and counseling and educating the patient/family/caregiver. Samir Aparicio MD Urologic Staff [facility] [place] [facility] History of Present illness Narrative* Samir Aparicio MD - 01/19/2023 1:30 PM EDT VIRTUAL VISIT FOLLOW UP PATIENT: Patsy Mills [id number] 01/19/2023 I have communicated my name and active licensure. The patient's identity and physical location wereverified at the time of this visit. Either the patient or their legal underwriting service representative has been informed of the risks and benefits of -- and alternatives to -- treatment through a remote evaluation andconsents to proceed with the evaluation remotely. This is a virtual visit using Deem video visit. It required patient-provider interaction for themedical decision making as documented below. Chief Complaint: Prostate Cancer History of Present Illness: Patsy Mills is a very pleasant 77 year old male who has h/o CKD, HTN, RA, BPH with obstruction,microscopic hematuria, Nephrolithiasis, Multiple Myeloma- s/p bone marrow transplant now taking Aranesp, Chronic UTI and sepsis since Aug 2021, OAB, Hydroureteronephrosis, right ureteral stricture and GG2 prostate cancer. No recent PSA found 03/02/09- ESWL 08/05/12- Cysto- stone basket- stent 08/30/12- stent removal 05/05/22- Urolift -symptoms worsened - Nocturia q 30 min. 08/27/22- TURP chips- with favorable intermediate risk prostate cancer identified - on active surveillance ([place] 3+4, chips involved. PSA 1.5) 10/2022- UDS at [place]:42ml voided, Qmax 5ml/s, maximum detrusor recording 14 (unclear if this is w permission to void or if this represents poor compliance). 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 Mendoza Per Dr. Taty Feliciano 01/07/23 visit- recommendation for Prostate Ca: - - radiation (risk of worsening bladder function) - cystoprostatectomy conduit - will refer to one of my onc colleagues to discuss this further Labs and Pathology: 01/05/23- Scr 1.33 Diagnosis (C61) Prostate cancer (HCC) (primary encounter diagnosis) (N13.5) Acquired ureteral stricture (N31.9) Neurogenic bladder (N40.1, N13.8) Benign prostatic hyperplasia with urinary obstruction Assessment and Plan: This is a 77 year old male with MM sp BM txp, urosepsis and uti sp urolift and TURP with incidentalGG2 prostate cancer, neurogenic bladder, R ureteral stricture. For prostate cancer, we have a long discussion about the active surveillance as an option for GG2 prostate cancer. It seems that the PSA has been relative low, with the last one (according the progress notes) around 1.5. Unfortunately, given the past surgical story of the Urolift an MRI will not be very helpful, specially in the mid base of the prostate due artifact. I recommend continue monitoring the PSA in case of an uptrend, then a new biopsy. We discussed the option of prostatectomy along the possible cystectomy, he is not interested at this time Ureteral stricture and neurogenic bladder, under the management of Dr Mendoza This visit was conducted as a video visit I spent a total of 30 minutes on the date of the service which included preparing to see the patient, [id number] patient care, completing clinical documentation, obtaining and/or reviewing separately obtained history, performing a medically appropriate examination, and counseling and educating the patient/family/caregiver. Samir Aparicio MD Urologic Staff [facility] [place] [facility] Evaluation note* Encounter Date Diagnosis Assessment Notes Treatment Notes Treatment Clinical Notes December, Hypophosphatemia (ICD-10 - E83.39) December, Hypertensive chronic kidney disease w stg 1-4/unsp chr kdny (ICD-10 - I12.9) [facility] Other [id number] Evaluation note* Encounter Date Diagnosis Assessment Notes Treatment Notes Treatment Clinical Notes December, Hypertensive chronic kidney disease w stg 1-4/unsp chr kdny (ICD-10 - I12.9) Blood pressure is well controlled. Patient is off hydralazine. He is not on MORGAN or ARB.he has proteinuria. 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 kidney function is at baseline. Pro/Cr 800 mg/g currently off ACEI/ARB. will start lisinopril DM is better controlled. I explained the patient the necessity of keeping diabetes well controlled to attenuate CKD progression Pressure well controlled no need for diuretics. No need for blood pressure medications. Avoid NSAIDs Follow-up in 6 months December, HTN (hypertension) (ICD-10 - I10) Blood pressures well controlled.will add lisinopril for proteinuria No need for diuretics or blood pressure medication December, Multiple myeloma (ICD-10 - C90.00) Patient was diagnosed with multiple myeloma on March 04, 2020. He has a good response to chemotherapy. He had stem cell transplant at on July 23, 2020. Patient follows locally with Dr. Rosenberg. Currently off Revlimid December, Diabetes mellitus (ICD-10 - E11.9) Needs better control of diabetes to attenuate chronic kidney disease progression. Hemoglobin A1c target below 7%. I explained the patient the necessity of keeping diabetes under good control to preserve kidney function December, Nephrolithiasis (ICD-10 - N20.0) Patient had history of nephrolithiasis. No more kidney stone since 2019December, Anemia, unspecified type (ICD-10 - D64.9) Patient received 2 units of RBCs transfusion in 2021 for hemoglobin 6.9 g deciliter. Currently follow with Dr. Huddleston he is on Aranesp. Hemoglobin is improving December, Hyperkalemia (ICD-10 - E87.5) Patient had RINA with hyperkalemia in August 2021. Hyperkalemia was likely from RINA and being on potassium supplement. This was treated medically. Potassium remained within normal limit. will re check K next visit December, Hydronephrosis, unspecified hydronephrosis type (ICD-10 - N13.30) this has resolved. he has bond cath and right stent placed . he has follow up with Dr. Rosas December, Hypophosphatemia (ICD-10 - E83.39) will start supplement. will re check Phos next visit [facility] Other 05-24-2023 NoteHNO ID: [id number] Author: Daisy Mendoza MD Service: ? Author Type: Physician Type: Progress Notes Filed: 01/07/2023 5:03 PM Note Text: [facility] UROLOGY NEW PATIENT CLINIC NOTE SERVICE DATE: 01/07/2023 NAME: Patsy Mills REFERRED BY: No referring provider defined for this encounter. CHIEF COMPLAINT Ureter stent HISTORY OF PRESENT ILLNESS Mr. Mills is a 77 year old male with a history of multiple myeloma, CKD, bph, nephrolithiasis who presents for evaluation for right ureteral stricture Mr Mills reports multiple UTIs and episodes of urosepsis starting in Aug 2021 This prompted outlet procedure - urolift and then TURP Had worsening of urinary symptoms after this - bothersome nocturia q30min Work up with Dr Cortez included UDS and RBUS UDS October 2022 at [place]: 42ml voided, Qmax 5ml/s, maximum detrusor recording 14 (unclear if this is w permission to void or if this represents poor compliance). PVR 77 RBUS showed hydro on R - RPG reportedly with R ureteral stx, stent placed in November 2022 TURP chips with favorable intermediate risk prostate cancer identified on TURP - on active surveillance ([place] 3+4, chips involved. PSA 1.5) Also has Multiple myeloma - sp bone marrow txp, now off meds for this other than Aranesp Denies history of back surgery, radiation, weakness in arms or legs PSH: ESWL 2009 Urolift in Apr 2022 TURP Aug 2022 (incidental finding of prostate cancer) Cysto, R RPG, R ureteral dilation, R ureteral stent November 2022 Here with his and son PAST MEDICAL HISTORY No past medical history on file. PAST SURGICAL HISTORY No past surgical history on file. FAMILY HISTORY No family history on file. SOCIAL HISTORY MEDICATIONS No current outpatient medications on file. No current facility-administered medications for this visit. CURRENT ALLERGIES Allergies As of Date: 01/07/2023 Allergen Noted Reaction MIRABEGRON 06/27/2022 Diarrhea and GI Upset GABAPENTIN 08/20/2021 Rash and Unknown Fully Assessed 01/07/2023 COMPLETE REVIEW OF SYSTEMS REVIEW OF SYSTEMS See hpi OBJECTIVE PHYSICAL EXAM: There were no vitals filed for this visit. There is no height or weight on file to calculate BMI. There were no vitals filed for this visit. General: pleasant Psych: euthymic, NAD Neuro: AANDOx3. CV: normal perfusion, hemodynamically stable Resp: normal effort Abdomen: soft, NT DATA Labs No results found for: WBC, HB, HCT, PLT, NA, K, CHLOR, CO2, BUN, CREAT ASSESSMENT/PLAN 77 M multiple myeloma sp bM txp, urosepsis and uti sp urolift and TURP with incidental CAP on TURP, high pressure low capacity bladder w VUR, R ureteral stricture. Complex situation - discussed options at length I need RPG images, CT scans, and UDS results If we were going to plan for Cx/Ic I would repeat VUDS If botox I would repeat VUDS 6 weeks after botox For bladder: - botox + CIC - SPT - cystectomy conduit For ureter: - regular stent exchanges (emphasized importance of having changes done regularly) - reimplant (would need to fix bladder first) - cystectomy conduit For prostate - - radiation (risk of worsening bladder function) - cystoprostatectomy conduit - will refer to one of my onc colleagues to discuss this further He would prefer SPT + stent exchanges Will get records and tentatively schedule for February Daisy Mendoza MD Associate Staff [facility] [place] Department of Urology I spent a total of 50 minutes on the date of the service which included preparing to see the patient, brdx-fw-iybi patient care, completing clinical documentation, obtaining and/or reviewing separately obtained history, performing a medically appropriate examination, counseling and educating the patient/family/caregiver, and ordering medications, tests, or procedures. >50% of time was devoted to patient counseling.[facility] 12-19-2022 Hospital Discharge instructions Patient Education 12/19/2022 09:55:29 Hydronephrosis Hydronephrosis Hydronephrosis is the swelling of one or both kidneys due to a blockage that stops urine from flowing out of the body. Kidneys filter waste from the blood and produce urine. This condition can lead to kidney failure and may become life-threatening if not treated promptly. What are the causes? In infants and children, common causes include problems that occur when a baby is developing in thewomb. These can include problems in the kidneys or in the tubes that drain urine into the bladder (ureters). In adults, common causes include: Kidney stones. . A tumor or cyst in the abdomen or pelvis. An enlarged prostate gland. Other causes include: Bladder infection. Scar tissue from a previous surgery or injury. A blood clot. Cancer of the prostate, bladder, uterus, ovary, or colon. What are the signs or symptoms? Symptoms of this condition include: Pain or discomfort in your side (flank) or abdomen. Swelling in your abdomen. Nausea and vomiting. Fever. Pain when passing urine. Feelings of urgency when you need to urinate. Urinating more often than normal. In some cases, you may not have any symptoms. How is this diagnosed? This condition may be diagnosed based on: Your symptoms and medical history. A physical exam. Blood and urine tests. Imaging tests, such as an ultrasound, CT scan, or MRI. A procedure to look at your urinary tract and bladder by inserting a scope into the urethra (cystoscopy). How is this treated? Treatment for this condition depends on where the blockage is, how long it has been there, and whatcaused it. The goal of treatment is to remove the blockage. Treatment may include: Antibiotic medicines to treat or prevent infection. A procedure to place a small, thin tube (stent) into a blocked ureter. The stent will keep the ureter open so that urine can drain through it. A nonsurgical procedure that crushes kidney stones with shock waves (extracorporeal shock wave lithotripsy). If kidney failure occurs, treatment may include dialysis or a kidney transplant. Follow these instructions at home: Take vwgf-pkp-jhvnjvg and prescription medicines only as told by your health care provider. If you were prescribed an antibiotic medicine, take it exactly as told by your health care provider. Do not stop taking the antibiotic even if you start to feel better. Rest and return to your normal activities as told by your health care provider. Ask your health care provider what activities are safe for you. Drink enough fluid to keep your urine pale yellow. Keep all follow-up visits. This is important. Contact a health care provider if: You continue to have symptoms after treatment. You develop new symptoms. Your urine becomes cloudy or bloody. You have a fever. Get help right away if: You have severe flank or abdominal pain. You cannot drink fluids without vomiting. Summary Hydronephrosis is the swelling of one or both kidneys due to a blockage that stops urine from flowing out of the body. Hydronephrosis can lead to kidney failure and may become life-threatening if not treated promptly. The goal of treatment is to remove the blockage. It may include a procedure to insert a stent into a blocked ureter, a procedure to break up kidney stones, or taking antibiotic medicines. Follow your health care provider's instructions for taking care of yourself at home, including instructions about drinking fluids, taking medicines, and limiting activities. This information is not intended to replace advice given to you by your health care provider. Make sure you discuss any questions you have with your health care provider. Document Revised: 11/20/2020 Document Reviewed: 11/20/2020 [employer] Patient Education 2022 [employer]. Follow Up Care 12/11/2022 13:21:04 With:Diego RICKS, OUSMANE Bell, URO Address: When: Unknown [facility] 04-21-2023 Hospital Discharge instructions Patient Education 12/05/2022 11:27:49 Prostate Cancer Prostate Cancer The prostate is a small gland that produces fluid that makes up semen (seminal fluid). It is located below the bladder in men, in front of the rectum. Prostate cancer is the abnormal growth of cells in the prostate gland. What are the causes? The exact cause of this condition is not known. What increases the risk? You are more likely to develop this condition if: You are 65 years of age or older. You have a family history of prostate cancer. You have a family history of breast and ovarian cancer. You have genes that are passed from parent to child (inherited), such as BRCA1 and BRCA2. You have [place] syndrome. men and men of descent are diagnosed with prostate cancer at higher rates than other men. The reasons for this are not well understood and are likely due to a combination of genetic and environmental factors. What are the signs or symptoms? Symptoms of this condition include: Problems with urination. This may include: ?A weak or interrupted flow of urine. ?Trouble starting or stopping urination. ?Trouble emptying the bladder all the way. ?The need to urinate more often, especially at night. Blood in urine or semen. Persistent pain or discomfort in the lower back, lower abdomen, or hips. Trouble getting an erection. Weakness or numbness in the legs or feet. How is this diagnosed? This condition can be diagnosed with: A digital rectal exam. For this exam, a health care provider inserts a gloved finger into the rectum to feel the prostate gland. A blood test called a prostate-specific antigen (PSA) test. A procedure in which a sample of tissue is taken from the prostate and checked under a microscope (prostate biopsy). An imaging test called transrectal ultrasonography. Once the condition is diagnosed, tests will be done to determine how far the cancer has spread. This is called staging the cancer. Staging may involve imaging tests, such as a bone scan, CT scan, PETscan, or MRI. Stages of prostate cancer The stages of prostate cancer are as follows: Stage 1 (I). At this stage, the cancer is found in the prostate only. The cancer is not visible on imaging tests, and it is usually found by accident, such as during prostate surgery. Stage 2 (II). At this stage, the cancer is more advanced than it is in stage 1, but the cancer has not spread outside the prostate. Stage 3 (III). At this stage, the cancer has spread beyond the outer layer of the prostate to nearby tissues. The cancer may be found in the seminal vesicles, which are near the bladder and the prostate. Stage 4 (IV). At this stage, the cancer has spread to other parts of the body, such as the lymph nodes, bones, bladder, rectum, liver, or lungs. Prostate cancer grading Prostate cancer is also graded according to how the cancer cells look under a microscope. This is called the [place] score and the total score can range from 6 10, indicating how likely it is that the cancer will spread (metastasize) to other parts of the body. The higher the score, the greater thelikelihood that the cancer will spread. [place] 6 or lower: This indicates that the cancer cells look similar to normal prostate cells (well differentiated). [place] 7: This indicates that the cancer cells look somewhat similar to normal prostate cells (moderately differentiated). [place] 8, 9, or 10: This indicates that the cancer cells look very different than normal prostate cells (poorly differentiated). How is this treated? Treatment for this condition depends on several factors, including the stage of the cancer, your age, personal preferences, and your overall health. Talk with your health care provider about treatment options that are recommended for you. Common treatments include: Observation for early stage prostate cancer (active surveillance). This involves having exams, blood tests, and in some cases, more biopsies. For some men, this is the only treatment needed. Surgery. Types of surgeries include: ?Open surgery (radical prostatectomy). In this surgery, a larger incision is made to remove the prostate. ?A laparoscopic radical prostatectomy. This is a surgery to remove the prostate and lymph nodes through several small incisions. It is often referred to as a minimally invasive surgery. ?A robotic radical prostatectomy. This is laparoscopic surgery to remove the prostate and lymph nodes with the help of robotic arms that are controlled by the surgeon. ?Cryoablation. This is surgery to freeze and destroy cancer cells. Radiation treatment. Types of radiation treatment include: ?External beam radiation. This type aims beams of radiation from outside the body at the prostate to destroy cancerous cells. ?Brachytherapy. This type uses radioactive needles, seeds, wires, or tubes that are implanted into the prostate gland. Like external beam radiation, brachytherapy destroys cancerous cells. An advantage is that this type of radiation limits the damage to surrounding tissue and has fewer side effects. Chemotherapy. This treatment kills cancer cells or stops them from multiplying. It kills both cancer cells and normal cells. Targeted therapy. This treatment uses medicines to kill cancer cells without damaging normal cells. Hormone treatment. This treatment involves taking medicines that act on testosterone, one of the male hormones, by: ?Stopping your body from producing testosterone. ?Blocking testosterone from reaching cancer cells. Follow these instructions at home: Lifestyle Do not use any products that contain nicotine or tobacco. These products include cigarettes, chewing tobacco, and vaping devices, such as e-cigarettes. If you need help quitting, ask your health careprovider. Eat a healthy diet. To do this: ?Eat foods that are high in fiber. These include beans, whole grains, and fresh fruits and vegetables. ?Limit foods that are high in fat and sugar. These include fried or sweet foods. Treatment for prostate cancer may affect sexual function. If you have a partner, continue to have intimate moments. This may include touching, holding, hugging, and caressing your partner. Get plenty of sleep. Consider joining a support group for men who have prostate cancer. Meeting with a support group mayhelp you learn to manage the stress of having cancer. General instructions Take ltgv-dmj-hctdbpo and prescription medicines only as told by your health care provider. If you have to go to the hospital, notify your cancer specialist (oncologist). Keep all follow-up visits. This is important. Where to find more information [employer]: www.cancer.org [employer] [place] [employer]: www.cancer.net National Cancer [place]: www.cancer.gov Contact a health care provider if: You have new or increasing trouble urinating. You have new or increasing blood in your urine. You have new or increasing pain in your hips, back, or chest. Get help right away if: You have weakness or numbness in your legs. You cannot control urination or your bowel movements (incontinence). You have chills or a fever. Summary The prostate is a small gland that is involved in the production of semen. It is located below a man's bladder, in front of the rectum. Prostate cancer is the abnormal growth of cells in the prostate gland. Treatment for this condition depends on the stage of the cancer, your age, personal preferences, and your overall health. Talk with your health care provider about treatment options that are recommended for you. Consider joining a support group for men who have prostate cancer. Meeting with a support group mayhelp you learn to manage the stress of having cancer. This information is not intended to replace advice given to you by your health care provider. Make sure you discuss any questions you have with your health care provider. Document Revised: 10/30/2021 Document Reviewed: 10/30/2021 [employer] Patient Education 2022 [employer]. Follow Up Care 12/03/2022 13:58:34 With:Diego RICKS, OUSMANE Bell, URO Address: [address] [place] [phone] When: Unknown [facility] 03-20-2023 Hospital Discharge instructions Patient Education 11/03/2022 13:13:21 Prostate Cancer Prostate Cancer The prostate is a walnut-sized gland that is involved in the production of semen. It is located below a man's bladder, in front of the rectum. Prostate cancer is the abnormal growth of cells in the prostate gland. What are the causes? The exact cause of this condition is not known. What increases the risk? This condition is more likely to develop in men who: Are older than age 65. Are -[place]. Are obese. Have a family history of prostate cancer. Have a family history of breast cancer. What are the signs or symptoms? Symptoms of this condition include: A need to urinate often. Weak or interrupted flow of urine. Trouble starting or stopping urination. Inability to urinate. Pain or burning during urination. Painful ejaculation. Blood in urine or semen. Persistent pain or discomfort in the lower back, lower abdomen, hips, or upper thighs. Trouble getting an erection. Trouble emptying the bladder all the way. How is this diagnosed? This condition can be diagnosed with: A digital rectal exam. For this exam, a health care provider inserts a gloved finger into the rectum to feel the prostate gland. A blood test called a prostate-specific antigen (PSA) test. An imaging test called transrectal ultrasonography. A procedure in which a sample of tissue is taken from the prostate and examined under a microscope (prostate biopsy). Once the condition is diagnosed, tests will be done to determine how far the cancer has spread. This is called staging the cancer. Staging may involve imaging tests, such as: A bone scan. A CT scan. A PET scan. An MRI. The stages of prostate cancer are as follows: Stage I. At this stage, the cancer is found in the prostate only. The cancer is not visible on imaging tests and it is usually found by accident, such as during a prostate surgery. Stage II. At this stage, the cancer is more advanced than it is in stage I, but the cancer has not spread outside the prostate. Stage III. At this stage, the cancer has spread beyond the outer layer of the prostate to nearby tissues. The cancer may be found in the seminal vesicles, which are near the bladder and the prostate. Stage IV. At this stage, the cancer has spread other parts of the body, such as the lymph nodes, bones, bladder, rectum, liver, or lungs. How is this treated? Treatment for this condition depends on several factors, including the stage of the cancer, your age, personal preferences, and your overall health. Talk with your health care provider about treatment options that are recommended for you. Common treatments include: Observation for early stage prostate cancer (active surveillance). This involves having exams, blood tests, and in some cases, more biopsies. For some men, this is the only treatment needed. Surgery. Types of surgeries include: ?Open surgery. In this surgery, a larger incision is made to remove the prostate. ?A laparoscopic prostatectomy. This is a surgery to remove the prostate and lymph nodes through several, small incisions. It is often referred to as a minimally invasive surgery. ?A robotic prostatectomy. This is a surgery to remove the prostate and lymph nodes with the help ofa robotic arm that is controlled by a computer. ?Orchiectomy. This is a surgery to remove the testicles. ?Cryosurgery. This is a surgery to freeze and destroy cancer cells. Radiation treatment. Types of radiation treatment include: ?External beam radiation. This type aims beams of radiation from outside the body at the prostate to destroy cancerous cells. ?Brachytherapy. This type uses radioactive needles, seeds, wires, or tubes that are implanted into the prostate gland. Like external beam radiation, brachytherapy destroys cancerous cells. An advantage is that this type of radiation limits the damage to surrounding tissue and has fewer side effects. High-intensity, focused ultrasonography. This treatment destroys cancer cells by delivering high-energy ultrasound waves to the cancerous cells. Chemotherapy medicines. This treatment kills cancer cells or stops them from multiplying. Hormone treatment. This treatment involves taking medicines that act on one of the male hormones (testosterone): ?By stopping your body from producing testosterone. ?By blocking testosterone from reaching cancer cells. Follow these instructions at home: Take dmma-bwa-wlpctgx and prescription medicines only as told by your health care provider. Maintain a healthy diet. Get plenty of sleep. Consider joining a support group for men who have prostate cancer. Meeting with a support group mayhelp you learn to cope with the stress of having cancer. Keep all follow-up visits as told by your health care provider. This is important. If you have to go to the hospital, notify your cancer specialist (oncologist). Treatment for prostate cancer may affect sexual function. Continue to have intimate moments with your partner. This may include touching, holding, hugging, and caressing. Contact a health care provider if: You have trouble urinating. You have blood in your urine. You have pain in your hips, back, or chest. Get help right away if: You have weakness or numbness in your legs. You cannot control urination or your bowel movements (incontinence). You have trouble breathing. You have sudden chest pain. You have chills or a fever. Summary The prostate is a walnut-sized gland that is involved in the production of semen. It is located below a man's bladder, in front of the rectum. Prostate cancer is the abnormal growth of cells in the prostate gland. Treatment for this condition depends on several factors, including the stage of the cancer, your age, personal preferences, and your overall health. Talk with your health care provider about treatment options that are recommended for you. Consider joining a support group for men who have prostate cancer. Meeting with a support group mayhelp you learn to cope with the stress of having cancer. This information is not intended to replace advice given to you by your health care provider. Make sure you discuss any questions you have with your health care provider. Document Released: 08/03/2006 Document Revised: 07/16/2018 Document Reviewed: 04/13/2017 [employer] Patient Education 2020 [employer]. Follow Up Care 10/21/2022 07:54:56 With:Diego RICKS, OUSMANE Bell, URO Address: When: Unknown [facility] 03-06-2023 Note [id number]:[id number]16[facility]22 Hospital Discharge instructions Patient Education 10/16/2022 11:31:15 Hydronephrosis Hydronephrosis Hydronephrosis is the swelling of one or both kidneys due to a blockage that stops urine from flowing out of the body. Kidneys filter waste from the blood and produce urine. This condition can lead to kidney failure and may become life threatening if not treated promptly. What are the causes? Common causes of this condition include: Problems that occur when a baby is developing in the womb (congenital defect). These can include problems: ?In the kidneys. ?In the tubes that drain urine from the kidneys into the bladder (ureters). Kidney stones. Bladder infection. An enlarged prostate gland. Scar tissue from a previous surgery or injury. A blood clot. A tumor or cyst in the abdomen or pelvis. Cancer of the prostate, bladder, uterus, ovary, or colon. What are the signs or symptoms? Symptoms of this condition include: Pain or discomfort in your side (flank). Pain and swelling in your abdomen. Nausea and vomiting. Fever. Pain when passing urine. Feelings of urgency when you need to urinate. Urinating more often than normal. In some cases, you may not have any symptoms. How is this diagnosed? This condition may be diagnosed based on: Your symptoms and medical history. A physical exam. Blood and urine tests. Imaging tests, such as an ultrasound, CT scan, or MRI. A procedure in which a scope is inserted into the urethra and used to view parts of the urinary tract and bladder (cystoscopy). How is this treated? Treatment for this condition depends on where the blockage is, how long it has been there, and whatcaused it. The goal of treatment is to remove the blockage. Treatment may include: Antibiotic medicines to treat or prevent infection. A procedure to place a small, thin tube (stent) into a blocked ureter. The stent will keep the ureter open so that urine can drain through it. A nonsurgical procedure that crushes kidney stones with shock waves (extracorporeal shock wave lithotripsy). If kidney failure occurs, treatment may include dialysis or a kidney transplant. Follow these instructions at home: Take gbvp-ubm-yhchnrf and prescription medicines only as told by your health care provider. Rest and return to your normal activities as told by your health care provider. Ask your health care provider what activities are safe for you. Drink enough fluid to keep your urine pale yellow. If you were prescribed an antibiotic medicine, take it exactly as told by your health care provider. Do not stop taking the antibiotic even if you start to feel better. Keep all follow-up visits as told by your health care provider. This is important. Contact a health care provider if: You continue to have symptoms after treatment. You develop new symptoms. Your urine becomes cloudy or bloody. You have a fever. Get help right away if: You have severe flank or abdominal pain. You cannot drink fluids without vomiting. Summary Hydronephrosis is the swelling of one or both kidneys due to a blockage that stops urine from flowing out of the body. Hydronephrosis can lead to kidney failure and may become life threatening if not treated promptly. The goal of treatment is to treat the cause of the blockage. It may include insertion of stent intoa blocked ureter, a procedure to treat kidney stones, and antibiotic medicines. Follow your health care provider's instructions for taking care of yourself at home, including instructions about drinking fluids, taking medicines, and limiting activities. This information is not intended to replace advice given to you by your health care provider. Make sure you discuss any questions you have with your health care provider. Document Released: 05/30/2008 Document Revised: 08/14/2018 Document Reviewed: 08/14/2018 [employer] Patient Education 2020 [employer]. Follow Up Care 10/15/2022 08:06:04 With:Diego RICKS, OUSMANE Bell, URO Address: When: Unknown [facility] 02-01-2023 Progress note Author Brook Huddleston [facility] September 17, 2022 1:35pm Note Date/Time September 03, 2022 8 :57am [facility] at [address] [address] Hem/Onc Follow Up Note - OP Signed with Addenda Patient: Patsy Mills MR#: [id number] : 1945 Acct:[id number] Age/Sex: 77 / M Type: REG RCR Copies to: MD Quique Ashton MD Kathy M Lue, MD Richard R Keller, MD~ ADDENDUM1 The patient had methylmalonic acid and homocystine which returned normal, therefore B12 and folate deficiencies are resolved prior to receiving Aranesp therapy. Addendum Dictated By: MD Brook Huddleston Addendum Signed By: 09/17/221334 Addendum Cosigned By: DD/ /08/1334 TD/TT: 09/17/2209/08/1334 Subjective Date/Time of Service: Date of Service: 09/03/2022 Time of Service: 08:54 Chief Complaint: Patient is here today for a one month follow up visit and go over labs HPI: 09/03/2022: Anabela presents with his for 5-week follow-up. He had a phone follow-up with Dr. Longoria from July [address] Hall reviewedhis most recent myeloma labs showing no evidence of recurrence and bone marrow biopsy from July with undetectable clonality on Clonoseq testing. He has remained off Revlimid since June 27 due to persistent fatigue and has not had any significant improvement of his anemia. We are going to continue to holdRevlimid and reassess his serum iron profile, methylmalonic acid, and homocystine. The patient remains on monthly B12 and last iron stores in December were elevated. I am also going to send an erythropoietin level for possible addition of Aranesp 200 mcg every 2 weeks to improve his hemoglobin. Otherwise he continues to have mild to moderate fatigue but has not had any dizziness or falls. He did undergo TURP with Dr. Cortez of urology at [facility] with some improvement of his urinary incontinence symptoms. He did not have any evidence of infection on urinalysis. He has follow-up with nephrology in 1 month. We will arrange CBC in 1 month and contact him with response to whichever intervention based on his labs (repleting iron, increasing B12, or adding Aranesp). He will defer follow-up with myeloma labs including serum and urine protein electrophoresis, quantitative immunoglobulins, and kappa/lambda light chain ratio to 4 months unless new symptoms arise. Moderate complexity 35-minute follow-up visit. 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 His primary complaint is urinary symptoms and increased urinary frequency - not sleeping well due to waking up frequently with urination. He is planning on undergoing TURP with Dr. Cortez this 07/31/2022. He is still fatigued, still not much energy or appetite; but overall no significant changes. He saw Dr. Hall on 07/03/2022 and his note was reviewed. He mentioned that it would bebeneficial for patient to continue Revlimid if able; he was also taken off Acyclovir and advised to follow up with Dr. Hall in 1 year with MRD testing. 06/27/2022: Patsy is here for followup to review Clonoseq testing that was still pending at last visit. He continues to have increased urine frequency andincontinence after prior Urolift surgery. He was given Mybetriq to manage urinefrequency but notes this was not well tolerated due to mouth sores, diarrhea, and headaches which improved after stopping the medication. No other concerningsymptoms although he has persistent fatigue and is frustrated with his quality of life. His Clonoseq returned at zero clonal cells. We noted since he has no evidence of disease in marrow and decreased quality of life, he will hold Revlimid x 1 month to see if symptoms improve. One month followup with [facility] to review labs and symptoms. He also has followup with Dr. Hall in one week and will inform him of plan for one month off Revlimid. He also may seek Urology second opinion. 05/23/2022: Noted to have Urolift procedure at [facility] last month, noted increased post-op pain that is slowly improving. On 05/16 he had injection of retinal hemorrhages for diabetic neuropathy. His bone marrow aspiration and biopsy for annual MRD testing was performed in interventional radiology on 04/30/2022, but specimen was not sent for Clonoseq MRD testing. No other new symptoms--12/2021: last M-spike negative and normal kappa/lambda light chain ratio. Bone marrow biopsy does not show morphologic evidence of myeloma but patient consented to bone marrow aspirate alone in clinic today to send for MRD testing. Other labs are stable--we will followup results in one month with repeat myeloma labs (serum protein electrophoresis, serum immunofixation, quantitative immunoglobulins, and kappa/lambda light chain ratio. Patient and agree with this plan over this low complexity 25 minute visit and 15 additional minutes for bone marrow aspiration. 02/05/2022: Patsy and his present for 1 month follow-up. No new symptoms--persistent stable fatigue. He underwent radiofrequency ablation of kidney stone by Dr. Seals at [place] on 01/14/2022 without complications. Sent off Revlimid since December 12, 2021 due to cytopenias. Otherwise no changes in clinical history. He is due for his second shingles shot and since he is otherwise stable with no recent infections he can receive his second dose. He did require transfusion of 2 units packed red blood cells for hemoglobin 6.7 on 01/23/2022. Hemoglobin has now improved to normal methylmalonic acid and homocystine, elevated iron saturation 72% and ferritin elevated to 663. Erythropoietin level was also elevated to 547.7 so he is not a candidate for erythrocyte stimulating agents. At this time I will continue to hold Revlimid since he has no evidence of M spike on his most recent serum protein electrophoresis or serum or urine immunofixation. Malden/lambda light chain ratio continues to decline to now 1.31 (normal). Due to his recent anemia we will hold his Revlimid another month and repeat his CBC in 1 month. If hemoglobin improving, we may consider resuming his maintenance Revlimid to 5 mg every other day. Next follow- up in April 2022 for repeat bone marrow biopsyin interventional radiology for specimen to be sent for minimal residual diseasetesting. I will follow-up with him 3 weeks thereafter for review of symptoms and bone marrow results, sooner as needed. 01/02/2022: Patsy and his are here for 3 month followup visit. She raised most of the concerns regarding worsening fatigue. He has been off He underwent a painful bone marrow by [facility] with Dr. Hall with nondiagnostic specimen. Dr. Hall recommended repeat bone marrow in the fall with MRD testing (we will set up with IR). I reviewed his f/u monoclonal gammopathy testing showing asymmetric gamma but no M-spike. Normal kappa/lambda light chain ratio. Hemoglobin declined to 8--elevated iron saturation and ferritin. I will check methylmalonic acid and homocysteine, erythropoietin, and may consider adding erythropoietin. Continue f/u with Dr. Crain. 10/03/2021: Patsy is here for 4-month follow-up of light chain myeloma. His brought me a thorough list of his recent hospitalizations since early August 2021. Recurrent weakness and dizziness as per chief complaint. --August 20 he was treated for UTI at [facility] ER, thenadmitted August 24 to [place] with dehydration and urosepsis with discharge August 29. 09/05/[address] Heath for continued antibiotics with Bactrim DS. Urine also returned positive for candidiasis and he was treated with fluconazole daily. He stopped his hydralazine and Lasix. --09/17/2021: He returned for labs and skeletal survey at [facility] and his potassium on blood work was markedly elevated. We contacted him and advised ER evaluation at [facility]. His potassium returned at 7.3 and he required hydration, calcium gluconate, insulin with bicarb, and had a negative Covid test. He was admitted and had unremarkable renal ultrasound, transfused 1 unit of blood for hemoglobin 7.3. Potassium and creatinine normalized and he was discharged home on 09/19/2021. Since that time he has had some improvement of energy but still has poor appetite and mild weakness. No fever, chills, or sweats. I will have him follow-up with nephrology and Dr. Heath for management of his potassium and creatinine. He denies any abdominal pain or bone pain and is otherwise compliant with maintenance Revlimid 5 mg daily. --Labs from 09/16/2021 did show mild elevation in creatinine 3.9 likely due to his electrolyte disturbances. His creatinine had increased from 1.29-2.11 likely due to dehydration. Serum M spike was not observed, but urine M spike was detected at 6.9. Urine immunofixation did not show monoclonal population and his urine M spike is likely due to his recent urinary infections. Serum kappa and lambda light chains were both elevated to 62.1 and 38.7 respectively with normal kappa/lambda ratio 1.6. Skeletal survey did not show any lytic lesions. At this time I would not change his maintenance Revlimid. He is due for follow-up with Dr. Hall at [facility] hematology in late October for 1 year follow-up bone marrow biopsy for MRD status. His next follow-up with me will be in 3 months or sooner as needed. 05/30/2021: 3 month followup--still no new symptoms. We discussed coronavirus booster, then flu vaccine, then will have post transplant vaccines in June. He is off gabapentin and rash resolved. Tolerates Revlimid 5mg daily. Stable kappa/lambda ratio--no M-spike serum and urine testing. Quant immunoglobulins normal. I will f/u with myeloma labs in 3 months--CBC, CMP, SPEP, quant IGs, kappa/lambda light chains and beta2 microglobulin. He and his are in agreement with this plan. Low complexity visit. 02/27/2021: Here for 3-month follow-up, prior autologous stem cell transplant 07/25/2020. No limitations of daily activities--normal appetite, denies pain. Previously noted increased rash over bilateral antecubital areas, chest and back. He is titrating off gabapentin due to improving neuropathy and rash mildly better. Still on Revlimid 5mg daily. Uses benadryl prn for pruritus andrash. Will contact for post transplant vaccines. Stable kappa/lambda ratio--no M-spike serum and urine testing. Quant immunoglobulins normal. I will f/u with myeloma labs in 3 months--CBC, CMP, SPEP, quant IGs, kappa/lambda lightchains and beta2 microglobulin. He and his are in agreement with this plan. 11/26/2020: Patsy is here for followup after D86 bone marrow biopsy at [facility] on 10/18/2020. No evidence of MRD--0.5% plasma cells andno clonal plasma cells suggestive of residual myeloma. Tolerating maintenance Revlimid 5mg daily well. No bone pain and normal renal function--Dr. Vincent hasreleased for annual nephrology followup. He is fully vaccinated for and I contacted Dr. Hall for coordination of post transplant vaccines. Stable neuropathy with gabapentin escalated to 400mg am, 300mg midday, 400mg pm. Continues followup with palliative medicine. He has phone f/u with Dr. Hall later this week. I will f/u with myeloma labs in 3 months--CBC, CMP, SPEP, quantIGs, kappa/lambda light chains and beta2 microglobulin. He and his are in agreement with this plan. 10/15/2020: Patsy is here with his for transfer of care after Melphalan 100mg/m2 autologous stem cell transplant D0 = 07/25/2021. He is now D+83 and oneweek ago, he saw Dr. Hall for survivorship visit. We reviewed his post transplant course and prior infections have now resolved. Blood counts have recovered and renal function at prior baseline. He has persistent neuropathy ongabapentin 200mg am, 100mg noon, 200mg pm. I'm setting him up for palliative consultation (previously followed by WILFREDO Olivia). He has a followup bone marrow biopsy scheduled with Dr. Hall in 3 days to document remission. I will discuss with him the plan after bone marrow biopsy--I briefly discussed Revlimidmaintenance with Mr. Mills and his . I will contact patient after bone marrow results to confirm plan with Dr. Hall and f/u with him in about 6 weeks with myeloma labs. 07/02/2020: Patsy has completed all of his pretransplant evaluation at [facility] including cardiology visit 11 which showed ejection fraction 60%. I have contacted Dr. Hall who noted that today will be his last day of Velcadeand we will hold his daratumumab. He was to have a COVID-19 test on 07/11/2020 for planned stem cell collection 07/17 and transplant on 07/23. I clarified with the staff at [facility] this this may be performed at [facility] and forwarded to them. 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 His pain mainly in hips is about 3 out of 10 and controlled with Percocet. His next follow-up with me will likely be in about 4 months when he is post transplant although I am happy to see him sooner if new issues arise in his post transplant course that need to be managed closer to home. His most recent labs reveal improving hemoglobin (11.5), stable renal function (creatinine 1.35), normal calcium, and appropriate response of kappa light chain to now normal 18 with K/L ratio 2.02. 06/04/2020: Met with Dr. Hall on 05/24/2020 to discuss planning for high-dose chemotherapy peripheral blood stem cell transplant. He has now hemodialysis independent after daratumumab, dexamethasone, and Velcade with addition of Revlimid. Today he reports that he has had increased neuropathy symptoms in hisbilateral hands and feet with mild interference with activity (grade 2). We discussed a 25% dose reduction of Velcade on day 1, day 4, day 8, day 11 with current cycle of DVdR. He has some leg cramps at night, with normal magnesium, but low iron saturation noted--will start daily iron for symptoms. Otherwise heis tolerating therapy well and creatinine is now normal. He was given educationfor the transplant course and he is scheduled in late June after Thanks to proceed with stem cell collection and transplant. I will communicate with Dr. Hall regarding end of therapy and in 1 month I will see him with follow-up myeloma studies. No other new concerns today. 05/07/2020: Patsy is here for 1 month follow-up. Outpatient hemodialysis was stopped after 04/24/2020 due to excellent response. He was evaluated by Dr. Small at [facility] on 04/26/2020. Angel and his note that Dr. Hall felt that he was physiologically about 8 years younger than his chronologic age and would likely be transplant eligible if pretransplant work-updeems this feasible. He recommended continuing current daratumumab and Velcade with low-dose Revlimid. He will reevaluate patient in 1 month and likely plan admission for stem cell collection, then high-dose chemotherapy/autologous stem cell transplantation in June or July. The patient's was concerned that she did not understand much of the pretransplant teaching and I explained to her and Don the pathophysiology of plasma cells, light chains, his improving trend of renal function, goal of 90% kappa/lambda ratio reduction prior to transplant. We also refilled Revlimid 5 mg every other day, weekly vitamin D, and I am giving him a trial of tramadol 50 mg every 12 hours as Tylenol is not effective for his pain and we are avoiding NSAIDs and additional aspirin. He otherwise has no toxicities of chemotherapy. He sees Dr. Heath for follow-up tomorrow and maintains insulin with stabilization of his blood sugars following with diabetes management clinic. I will see him in follow-up with myeloma labs in 1 month plan end of therapy prior to transplant. 04/09/2020: Here for one month f/u with his . He continues outpatient hemodialysis on Thursday//Saturdays. He notes fatigue, but generalized edema remarkably improved with no significant pain. I reviewed his M-spike, IgGand kappa light chains with K/L ratio that has remarkably improved (>90% reduction past month). Malden light chains decreased from 12,000 to 42. Only concern is significant hyperglycemia with dexamethasone. 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 I will coordinate evaluation by Dr. Quique Hall for HDC/autologous stem cell transplantevaluation and hold on adding Revlimid since significant response of light chains noted. I contacted Dr. Rahman of nephrology to consider reducing hemodialysis days to twice weekly. I will send myeloma labs in about 4 weeks, have him see Dr. Hall and f/u with me the following week to review plan and determine whether plan for HDC/stem cell transplant. 03/14/2020: Patient presents with his today after initiating both outpatienthemodialysis on Thursday//Saturdays and initial cycle of daratumumab, bortezomib, dexamethasone with potential addition of Revlimid after 1 month if less than optimal response. He received his first cycle of combination chemotherapy 03/12/2020. --Patient tolerated initial daratumumab infusion reasonably well with brief infusion reaction (dizziness and mild wheezing) that was treated with diphenhydramine, steroids, albuterol, and Demerol for rigors. He completed remaining infusion in an outpatient bed on the inpatient [facility] Thursday and we anticipate further weekly daratumumab infusions as an outpatient. --Patient was seen at dialysis today and noted to have hemoglobin 6.8. He will receive 1 unit of packed red blood cells prior to Velcade today for scheduled tomorrow. His was unable to be present at the hospital at time of diagnosis and his initial bone marrow biopsy was performed on 03/08/2020. She requests evaluation with him today for extensive questions regarding his care. She reported her session and requested a copy of this progress note following our visit today. 1. She asked if all the tests at the hospital returned. We discussed the teststhat are used to follow-up myeloma including his elevated IgG, elevated free kappa light chains, and elevated M spike. We discussed in detail the pathophysiology of myeloma but she felt very anxious and overwhelmed and I reassured her that we will readdress this at further follow-up visits. 2. Patient had a metastatic bone survey showing no areas of lytic disease or pathologic fractures. We discussed CRAB criteria for multiple myeloma diagnosisand that he meets criteria of R renal and A anemia, but not elevated calcium or bone disease (C and B). She specifically asked is stage of multiple myeloma andwe noted that he still will require beta-2 glycoprotein (ISS) but is most consistent with stage III. We are still awaiting his chromosomal abnormalities by fluorescence in situ hybridization and will readdress at next follow-up visitwith his final bone marrow biopsy results (this study was only performed 03/08/2020). 3. She wanted to know if his testing showed cancer elsewhere. We discussed that since metastatic bone survey showed more lytic areas I do not feel that F-18 PET is high priority but this may be ordered at some point to assess for any asymptomatic bony metastatic disease. 4. He has recently had elevated blood sugars and does not have a history of diabetes, but we discussed that with weekly steroids he should likely have additional insulin on his steroid days. I offered that this could be managed byhis primary physician Dr. Heath and he could be referred for diabetes management clinic. 5. We reiterated multiple times that his schedule may be variable. He will typically have a long infusion on Mondays with daratumumab but initially he willpresent twice weekly for Velcade injection on Mondays and . This will change during the course of his therapy and he should refer to his calendar. 6. We discussed not taking additional vitamins unless approved by nephrology. I also discussed potentially adding Revlimid and we will address at future visits if this is needed based on his follow-up labs ordered 04/02/2020. His medications may be filled either locally or with his prescription plan, but manyof these will be ordered by nephrology. He is to continue vitamin D2 as recommended by nephrology. Blood pressure medications will be regulated by primary care and nephrology. 7. We discussed concerning side effects, most commonly hyperglycemia, insomnia,risk of thrombosis (recently was diagnosed with left superficial thrombosis of the left upper extremity and additional heparin is given with his dialysis), andneuropathy with Velcade. Patients do not tend to have significant nausea or possible appetite (effects of dexamethasone increase his appetite). I cannot recommend medical marijuana and would discuss this with his pre coder whetherthis would interfere with dialysis. We will also follow closely for cytopenias and reviewed infectious precautions. He has a son from [place] who plans to visit on Thursday and we discussed COVID-19 testing appropriate social isolation protocols. 8. We discussed whether he was eligible for transplant and this will be evaluated based on his response and overall health in likely 3 to 4 months afterinitiation of therapy. We did not discuss autologous stem cell transplant in detail. We did discuss that although this is not curative therapy, many patients are controlled with medication over longer periods of time (often 5 to 6 years) with appropriate therapy. It is an aggressive cancer due to its significant infectious risk and association with renal failure. 9. Exercise may be performed as tolerated but should be done in moderation and likely we should wait a few weeks for more significant exercise given his recentdialysis and initiation of chemotherapy. I did not specifically address his diet but he may address this with our [facility] nutrition team. He will also receivechemotherapy class with our nurses in the infusion center. PRELIMINARY HISTORY (from initial consult 03/08/2020): This is a now 77-year-old male who was transferred from [place] emergency room by [facility] due to critical potassium 8.7 with elevated creatinine 11.2 and BUN 82 on 03/04/2020. We do not have any recent blood work for comparison but hehad normal creatinine in 2011. He was urgently treated for his hyperkalemia anddialysis was arranged emergently by nephrology team. He has now stabilized on dialysis and had extensive work-up for etiology of his acute renal failure with severe anemia felt to be due to anemia of renal insufficiency. Iron studies returned normal with ferritin 160, but B12 low at 84 and folate low normal at 5.2. He is receiving appropriate B12 repletion. The patient reports that he has had a prolonged period of fatigue up to a year and has decreased appetite with subjective weight loss. He denies any significant bone pain other than pain in his right shoulder and has no prior falls or recurrent back pain. He had a shoulder film showing labral pathology of the joint but no fracture or dislocation. Myeloma labs were sent showing M spike 3.6 g/dL with serum immunofixation showing IgG kappa light chain specificity. Serum IgG markedly elevated at 5312 and free kappa light chain 12,649.9 with normal free lambda light chain 11.94 free kappa/lambda ratio 1063. Hepatitis A, B, and C serologies were all negative and COVID-19 screening was negative. LORE, c-ANCA, p-ANCA, anti-GBM, and antimyeloperoxidase were all negative. Clinically the patient has multiple myeloma and I explained that we needed to proceed with bone marrow aspiration and biopsy to provide baseline for diagnosis and to expedite chemotherapy with an aggressive regimen to reduce his light chains. I will review information with him at noon today around the time of his bone marrow biopsy for combinationdaratumumab 16 mg/kg IV weekly, bortezomib 1.3 mg/kg subcu twice weekly, dexamethasone 40 mg weekly, and Revlimid 25 mg p.o. daily days 1 through 14 of each 21-day cycle. Revlimid will be ordered through a special pharmacy. We will schedule his infusions as an outpatient early next week on his nondialysis days. Written literature for these medications will be provided and he may sign informed consent so that we may order this regimen as an outpatient. The patient's is not with him today but has been treated by me for breast cancer in the past and had multiple questions. We would like to arrange a time for her to be available to ask questions and be present for chemo consent, possibly around noon today. This will need to be coordinated with nursing staffdue to [facility]. - Summary of Therapies Summary of Therapies: Cycle 1 day 1 03/12/2020: Daratumumab 16 mg/kg IV weekly, bortezomib 1.3 mg/kg subcu twice weekly, dexamethasone 40 mg weekly. 04/09/2020: Under direction of Dr. Hall, in early April we added Revlimid 5 mg every other day of each 21-day cycle with cycle 2 due to excellent response of kappa light chains. 04/26/2020: Malignant hematology eval for possible high-dose chemotherapy/autologous stem cell transplant. He was able to stop dialysis 04/24/2020. Given Velcade only (hold daratumumab) on 07/02/2020. 07/25/2020: Melphalan 100mg/m2 IV day 0 autologous stem cell transplant 07/25/2020at [facility]. 11/26/2020: Follow-up bone marrow aspiration and biopsy 10/18/2020 for MRD evaluation shows hypocellular marrow with 0.5% plasma cells, no clonal population by flow cytometry but 0.03% kappa light chain skewing. Started Revlimid 5 mg daily for maintenance therapy early October 2020. Nondiagnostic bone marrow for MRD in spring 2021 at . Planned follow-up bone marrow biopsy for MRD at [facility] fall 2021. -- 02/05/2022: Revlimid on hold since 12/12/2021 for cytopenias. Continue to follow off Revlimid 1 more month, then with improved anemia in 02/2022, we resumed 5 mg every other day maintenance. -- 06/27/2022: Holding Revlimid 5mg every other day one month due to undetectable clonal cells on Clonoseq, increased fatigue/urinary symptoms. --07/28/2022: Continue to HOLD Revlimid for time being; as patient is still fatigued and s/p TURP with Dr. Cortez of urology at [place] 08/27/2022. ROS Details: All systems reviewed & no additional complaints except as documented Subjective/ROS - Narrative: CONSTITUTIONAL: Mild increased chronic fatigue since HD Melphalan/ASCT 07/2020, negative for fever or night sweats. Post-transplant infections as per HPI, now resolved. HEAD AND NECK: Stable vision since control of his diabetes mellitus. Negative for changes in hearing. Negative for mouth ulcers, nasal congestion and nasal drainage. PULMONARY: Negative for chest pain, cough and dyspnea. CARDIOVASCULAR: Negative for claudication and irregular heartbeat/palpitations. Resolved edema since diagnosis, now off dialysis. GASTROINTESTINAL: Negative for abdominal pain, constipation, diarrhea, nausea orvomiting. Improved appetite and 20 kg weight loss after starting dialysis, chemotherapy, and transplant for light chain nephropathy. 11/2020--returned to baseline weight pretransplant. GENITOURINARY: Negative for dysuria and hematuria. Improved urinary output, diagnosed in February 2020 with renal failure requiring dialysis--off dialysis 04/24/2020. Prior nephrolithiasis previously followed by Dr. Seals--recent ESWL 01/14/2022 at [place]. ENDOCRINE: Negative for cold intolerance and heat intolerance. Improvement of prior hyperglycemia with home blood sugars in the 100-200s on supplemental insulin glargine. CENTRAL NERVOUS SYSTEM: Negative for gait disturbance and headache. No focal neurologic deficits or history of stroke. 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 PSYCHIATRIC: Negative for anxiety or depression. DERMATOLOGICAL: Positive for pruritus and rash as per HPI. Negative for suspicious skin lesions. MUSCULOSKELETAL: Resolved back pain and and thigh pain. Resolved leg cramps, improved neuropathy. No longer on ferrous sulfate post transplant. HEMATOLOGICAL: Negative for bleeding and easy bruising. Transfusion 2 units packed red blood cells 01/23/2022 for hemoglobin 6.7. Only other transfusion was 2 units red cells October 2021. Positive for left basilic vein thrombus on Doppler ultrasound 03/12/2020--no longer requires anticoagulation. Revlimid decreased to 5mg every other day--held since 06/27/2022. ALLERGY: Negative for environmental allergies and food allergies. PMF - History Attestation statement: The following information was validated with the patient. Source: Old Records Reviewed - Medical History Medical History: Medical History (Last Reviewed 09/03/22 @ 09:17 by Brook Huddleston MD) Apnea Arthritis Diabetes mellitus, type 2 Hyperlipidemia Hypertension Kidney stones Multiple myeloma Skin cancer - Family History Family History: Family History (Last Reviewed 09/03/22 @ 09:17 by Brook Huddleston MD) Sister Myocardial infarct Mother Myocardial infarct Father Skin cancer - Social History Smoking Status: Former smoker Tobacco Type: cigarettes Substance Use Type: None Home Medications & Allergies Allergies gabapentin Allergy (Verified 09/03/22 08:46) Rash mirabegron [From Myrbetriq] Adverse Reaction (Verified 09/03/22 08:46) Diarrhea Home Medications insulin glargine 100 unit/mL (3 mL) subcutaneous pen (Lantus Solostar U-100 Insulin) 25 unit subcut DAILY 04/27/20 [History Confirmed 09/03/22] insulin lispro 100 unit/mL subcutaneous pen (Humalog KwikPen (U-100) Insulin) 6 - 16 unit subcut DIRECTED 04/27/20 [History Confirmed 09/03/22] atorvastatin 20 mg tablet 20 mg PO DAILY 10/15/20 [History Confirmed 09/03/22] cholecalciferol (vitamin D3) 50 mcg (2,000 unit) capsule (Vitamin D3) 50 mcg PO DAILY 10/15/20 [History Confirmed 09/03/22] aspirin 81 mg tablet,delayed release 81 mg PO DAILY 11/26/20 [History Confirmed 09/03/22] metformin 500 mg tablet 500 mg PO BID 11/26/20 [History Confirmed 09/03/22] potassium chloride 20 mEq tablet,extended release 20 meq PO DAILY #90 tabs 06/23/22 [Rx Confirmed 09/03/22] lenalidomide 5 mg capsule (Revlimid) See Rx Instructions .Route .COMPLEX #14 caps 06/27/22 [Rx Confirmed 09/03/22] oxybutynin chloride 5 mg tablet 2.5 mg PO DAILY 07/28/22 [History Confirmed 09/03/22] famotidine 20 mg tablet 20 mg PO DAILY 09/03/22 [History Confirmed 09/03/22] Objective - Height/Weight Height/Weight: Height 5 ft 10 in Weight 91.8 kg BSA for Today's Weight 2.10 - Vital Signs Vital Signs: 09/03/22 08:47 Temperature 97.9 F Pulse Rate [Monitor] 98 H Respiratory Rate 16 Blood Pressure [Left Arm] 156/69 H 02 Sat by Pulse Oximetry 99 Oxygen Delivery Method Room Air - Pain Right Hip Pain Intensity: 5 Generalized Pain Intensity: 1 Left Upper Arm Pain Intensity: 4 Physical Exam Narrative: CONSTITUTIONAL: The patient is in no acute distress. Stable fatigue but can ambulate independently. HEAD / FACE: Normocephalic. EYES: Pupils are equal and reactive to light. Conjunctivae and lids are benign in appearance. Ocular movement intact. EARS: Hearing grossly intact. NOSE / MOUTH / THROAT: Nose, mouth, tongue and oropharynx are benign in appearance. No signs of inflammation. NECK / THYROID: Neck is supple. Thyroid is symmetrical, without thyromegaly, masses or palpable nodules. LYMPHATIC: No palpable cervical, supraclavicular, axillary, or inguinal adenopathy. RESPIRATORY: Normal to inspection. Lungs clear to auscultation and percussion. No wheezing, rales, rhonchi or rubs. Normal effort. CARDIOVASCULAR: Regular rate and rhythm. No murmurs, gallops, or rubs. VASCULAR: Carotid, radial, femoral and pedal pulses present bilaterally. No bruits. ABDOMEN: Bowel sounds normoactive. Soft, nontender and non-distended. No hepatosplenomegaly. No masses. GENITOURINARY: No CVA tenderness. No suprapubic fullness or tenderness. No groinadenopathy. No evidence of hernias. INTEGUMENTARY: The skin is unremarkable. Resolved antecubital/chest rashes. No suspicious lesions BACK / SPINE: The back is nontender. No step-off deformity. No CVA tenderness. MUSCULOSKELETAL: Normal musculature, no joint deformities or abnormalities, normal range of motion for all four extremities. EXTREMITIES: No longer has bilateral lower extremity edema; no cyanosis or clubbing. No Vitor sign. NEUROLOGICAL: Alert and oriented. Cranial nerves intact. No gross motor or sensory deficits. PSYCHIATRIC: No anxiety or evidence of depression. - ECOG Performance Status ECOG Score: 1 Results - Labs Labs: Diagram of Most Recent CBC and CMP 08/20/22 10:36 08/20/22 10:36 - Impressions No new imaging for review. 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 He had marked elevation in IgG kappa on initial laboratory work-up for renal failure in February 2020. He has remained hemodynamically stable and I discussed in detail with the patient the pathophysiology of multiple myeloma and associated injury to kidneys, persistentanemia, bone disease, and potential hypercalcemia (we do not see hypercalcemia in this patient). He consented to inpatient bone marrow biopsy 03/08/2020 which was diagnostic for multiple myeloma--70% plasma cells without amyloid depositionidentified in small marrow specimen. Normal baseline skeletal survey. I reviewed pathophysiology of myeloma, results of bone marrow biopsy, skeletal survey, and myeloma labs with the patient and his . --Patsy consented to begin first cycle Daratumumab, Velcade, and dexamethasone on 03/12/2020--other than infusion reaction from first Daratumumab, improved withsymptomatic therapy. I reviewed his case with Dr. Quique Hall of Malignant Hematology--added Revlimid 5mg qod following significant reduction of light chains in early April 2020. 05/07/2020: As per HPI, Angel and his met with Dr. Hall 04/26/2020 with preparation for likely high-dose chemotherapy/autologous peripheral stem cell transplant if he meets criteria based on cardiopulmonary work-up. He has had greater than 90%. The patient was able to discontinue hemodialysis on 04/24/2020 and has not had any recurrence of edema with now improved renal function, creatinine clearance now 53. --I will continue current therapy with further evaluation by Dr. Hall in 1 month for planning his HDC/autologous stem cell transplant. We will send repeatmyeloma labs (SPEP, IgG, kappa/lambda light chains) in 4 weeks with f/u visit with me the following week to review results as well as evaluation with Dr. Hall for possible stem cell transplant. 06/04/2020: Tolerating chemotherapy well other than increasing neuropathy of hands and feet. Dose reduced Velcade by 25% next cycle. Added daily ferrous sulfate. --He was referred to diabetes management clinic and sees Dr. Heath with regularfollow-up by Dr. Rahman since he is off dialysis. Diabetes control improved. 07/02/2020: Last dose of Velcade today. Neuropathy is stable and pain is well controlled. He will have COVID-19 test on 07/11/2020 for planned admission for stem cell collection on 07/17/2020 then high-dose melphalan followed by peripheral blood stem cell transplant day 0 scheduled 07/23/2020. His next follow-up with me will be in about 4 months after he is completed day 100 transplant follow-up. He may return sooner as needed. 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 Melphalan 100mg/m2 + ASCT Day 0 07/25/2020. 11/26/2020: Followup of [facility] end of therapy bone marrow biopsy 10/18/2020--no minimal residual disease. Started Revlimid maintenance 5mg daily in early October2020. 02/27/2021: No new symptoms other than rash. Slow improvement of neuropathy--titrating off gabapentin with palliative medicine. Benadryl for rash. Continue Revlimid 5mg daily. He will be due for first post transplant vaccines sooner--will check schedule with . 05/30/2021: Rash and neuropathy improved. Tolerating Revlimid well. Discussedcoronavirus booster and influenza vaccines. Post transplant vaccines due in 07/2021. No M-spike and normal kappa/lambda ratio. 10/03/2021: Multiple admissions for hyperkalemia, renal insufficiency due to dehydration, anemia requiring transfusion. Still feels weak and dizzy and his electrolyte disorders are being managed by primary care. No detectable M spike's and kappa/lambda light chain ratio is normal with elevated levels of both likely due to recent infections. Skeletal survey without new lytic lesions. He is due for MRD bone marrow follow-up with Dr. Hall next month. For now continue Revlimid 5 mg daily. 01/02/2022: Patient presents with his who is concerned with increasing fatigue. He has had a decline in his hemoglobin to 8 although his renal function is actually improved from prior values with creatinine clearance of 50. We sent serum iron profile showing increased iron stores with iron saturation 72% and ferritin 663. Homocystine was normal methylmalonic acid is pending. [place] also send an erythropoietin level to see if there may be a benefit to adding erythropoietin for anemia of chronic kidney disease. He will continue to follow with Dr. Meade. He still has no M spike on serum protein electrophoresis and normal kappa/lambda light chain ratio. MRD testing at [facility] was nondiagnostic and he will have repeat bone marrow biopsy here with me to send MRD testing. Next followup with me in 3 months for exam and f/u myeloma labs. We will coordinate his bone marrow biopsy at that time. He will continue follow-up by nephrology for chronic kidney disease although his prior hyperkalemia has improved on recent labs. May return sooner if new issues arise. 02/05/2022: Patient has persistent fatigue although did require transfusion 2 weeks ago for hemoglobin 7.6. Iron studies show increased iron saturation and ferritin with normal methylmalonic acid and homocystine. Erythropoietin level is elevated therefore he does not have an indication for erythrocyte stimulating agents. Myelosuppression is likely due to prior Revlimid and I willkeep him off therapy for another 1 month with repeat CBC at that time. If anemia is improving I will resume Revlimid at 5 mg every other day maintenance therapy. He will be scheduled for MRD bone marrow at [place] [facility] in April 2022, then follow-up with me with review of myeloma labs 3 months after this procedure. He still has undetectablemonoclonal spike and normal kappa/lambda light chain ratio on most recent labs. Renal function is improving since ESWL at [place] in late December. 05/23/2022: No new issues, bone marrow biopsy 04/30/2022 in IR shows no morphologic evidence of myeloma, but specimen was not sent for MRD testing. Patient agreed to bone marrow aspirate only today performed for MRD testing and documented in a separate procedure note. Normal trilineage hematopoiesis on bone marrow biopsy with increased iron stores. Revlimid now down to 5mg every other day. Will review MRD testing with myeloma labs (SPEP for monoclonal spike and kappa/lambda light chain ratio) at next followup in 4 weeks. Considerfurther Revlimid dose reduction if persistent anemia on CBC with CMP and if MRD negative. 06/27/2022: Notes increased fatigue and increased urine frequency despite recent Urolift procedure. Intolerant of Myrbetriq. Clonoseq reveals no clonal tumor cells. Recommend holding Revlimid 1 month for cytopenias and persistent fatigue due to quality of life concerns. He will followup with Dr. Hall next week to discuss holding Revlimid. If symptoms improved at one month followup with [facility], he will followup with me in one month with CBC, CMP, SPEP for monoclonal spike and kappa/lambda light chain ratio. 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 His primary complaint is urinary symptoms and increased urinary frequency - not sleeping well due to waking up frequently with urination. He is planning on undergoing TURP with Dr. Cortez this 07/31/2022. He is still fatigued, still not much energy or appetite; but overall no significant changes. He saw Dr. Hall on 07/03/2022 and his note was reviewed. He mentioned that it would bebeneficial for patient to continue Revlimid if able; he was also taken off Acyclovir and advised to follow up with Dr. Hall in 1 year with MRD testing. - follow up in [address] Flaquito with CBC, CMP, SPEP for monoclonal spike and kappa/lamda light chain ratio. - continue to hold Revlimid pending urology procedure and continued fatigued. Dr. Hall discussed resuming Revlimid if able- per , he discussed decreasingdosage to 2.5 mg. - most recent labs show stable renal fxn; continued anemia with hgb - 8.6 and platelet count 101,000. No monoclonality with urine immunofixation; recent SPEP showed asymmetrical beta. 09/03/2022: Patsy has no new symptoms. Urinary symptoms have improved since TURP with Dr. Cortez 06/27/2023. No evidence of infection on urinalysis. Fatigue is slowly improving off Revlimid the last 2 months. He does have persistent anemia with hemoglobin 8.1, persistent macrocytosis. I am rechecking his methylmalonic acid and homocystine as he is on monthly parenteral B12 but we mayneed to give him further loading doses over the next 8 weeks if elevated methylmalonic acid and homocystine. I am also rechecking his iron studies although his last iron saturation in December was 72% with elevated ferritin. If he has normal or elevated iron stores and normal B12 and folate stores, we will assess his erythropoietin level for possible Aranesp therapy for anemia of chronic kidney disease. He follows up with nephrology next month. We will defer his next follow-up with myeloma labs CBC, CMP, SPEP/serum immunofixation for monoclonal spike, quantitative immunoglobulins, and kappa/lamda light chain ratio to 4 months or sooner as needed. The patient is are in agreement with this plan over this 35-minute follow-up visit. (2) Anemia of renal disease Hemoglobin has decreased to 8 and iron stores show increased iron saturation andferritin. He no longer takes supplemental iron but has ongoing B12 repletion 1 mg p.o. daily. Methylmalonic acid is pending to assess whether B12 repletion isadequate. We are also sending an erythropoietin level and if methylmalonic acidis normal, we will initiate erythropoietin therapy for anemia of chronic kidney disease. I will update nephrology if decision to add erythrocyte stimulating agent therapy. I will contact him with these results and coordinate repletion therapy. In addition the patient is on chronic Revlimid which it is myelosuppressive. -- Revlimid has was on hold 12/12/2021. He did require transfusion in early Januaryand had elevated iron saturation and ferritin, normal methylmalonic acid and homocystine, and increased erythropoietin level. We resumed Revlimid in early February. MRD bone marrow aspirate sent today--no dysplasia on bone marrow biopsy. For now may continue Revlimid 5mg every other day and consider further dose reduction if persistent anemia with MRD negative on f/u in one month. --As noted above we are holding Revlimid one month due to quality of life concerns and cytopenias. If improved symptoms at one month followup off Revlimid, we may continue to hold Revlimid and follow every 3 months. -- Slowly improving symptoms off Revlimid x 2 months, however anemia is slightlyworse with hemoglobin 8.1. Consider addition of Aranesp if normal B12, folate, and iron stores as noted above. We will continue off Revlimid until improvementof anemia. (3) History of hemodialysis Initiated inpatient hemodialysis 02/2020, then transitioned to outpatient hemodialysis 3 times weekly Thursday//Thursday schedule. Chemotherapy given Thursday/. 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 He was actually able to stop dialysis within 2 months with the last session 04/24/2020 as noted above. Over 2 years after Melphalan 100mg/m2 + autologous PBSCT given his significant response to initial myeloma directed therapy. Continued f/u with nephrology for stage III chronic kidney disease/resolved hyperkalemia. (4) Steroid-induced diabetes mellitus Qualifiers: Encounter type: subsequent encounter Qualified Code(s): E09.9 - Drug or chemical induced diabetes mellitus without complications; T38.0X5D - Adverse effect of glucocorticoids and synthetic analogues, subsequent encounter Patsy had an excellent response of light chains but was noted to have significant hyperglycemia 300-500 fasting blood sugars. He was referred to diabetesmanagement clinic with addition of insulin therapy that has significantly improved control of his blood sugars. Patient also had remarked on some blurredvision that improved with control of blood sugars. Continue follow-up of blood sugars during admission for transplant in early July. 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 Resumed low dose metformin and titrating down insulin--directed by his primary physician. Recent injection (likely Avastin) for diabetic retinopathy. (5) B12 deficiency Patient was found to have B12 deficiency and was been placed on daily B12 prior to hospital discharge. We continued weekly IM B12 for 8 weeks with his myeloma regimen. Hemoglobin is improved on Aranesp and weekly B12, then changed to monthly maintenance therapy. He has not required further blood transfusions since 03/15/2020. Follow- up methylmalonic acid on 04/30/2020 was normal showing adequate replacement. He will continue monthly IM B12 and weekly vitamin D2 therapy 50,000 units orally for low 25 hydroxy vitamin D stores. He may take supplemental calcium once daily. -- 09/03/2022: Repeat methylmalonic acid, homocystine and will continue monthly B12 but may need further loading doses as noted above due to his persistent anemia (6) Encounter for chemotherapy management Started cycle 1 day 1 03/12/2020: Daratumumab 16 mg/kg IV weekly, bortezomib 1.3 mg/kg subcu twice weekly, dexamethasone 40 mg weekly. We added Revlimid 5 mg every other day of each 21-day cycle with cycle 2 due to excellent reduction of kappa light chains (recommended by Dr. Hall malignanthematology). 06/04/2020: 25% DR Steven (100% all other meds) due to worsening neuropathy. Last dose of bortezomib 07/02/2020 and holding daratumumab per request of Dr. Hall. 07/25/2020: Melphalan 100mg/m2 + autologous PBSCT 10/18/2020: Started Revlimid 5 mg daily maintenance after bone marrow biopsy negative for MRD. Repeat MRD bone marrow at [facility] in 3 months because spring 2021 bone marrow at was nondiagnostic. -- Revlimid on hold 12/12/2021 due to myelosuppression. Continue to hold at 02/05/2022 follow-up visit. Resumed 5mg po every other day around February 2022 and will continue for now pending MRD testing. 06/27/2022: Now holding Revlimid due to fatigue and undetectable Clonoseq. 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 - planning to hold Revlimid with pending urology procedure for additional month;reviewed Dr. Hall's note from 07/03/2022; he mentioned it would be beneficial for patient to continue Revlimid if able - possibly at lower dose of 2.5 mg[address] at next follow up visit with labs in 1 month. 09/03/2022: Continue to hold Revlimid for anemia work-up noted above. - Chemo Plan Chemo Plan (Dose, Rate, Freq): 09/25/2019: Melphalan 100mg/m2 + autologous PBSCT-->10/2020 Revlimid 5mg daily maintenance after MRD bone marrow biopsy. On hold 12/12/2021 due to anemia then 02/2022 resumed 5mg every other day. 06/27/2022: Revlimid on hold due to fatigue, cytopenias, and undetectable Clonoseq 09/03/2022: Holding Revlimid past 2 months due to persistent anemia. Continue tohold until further anemia work-up. Goal of Treatment: Control - Time with Patient Time Spent with Patient (Follow Up Visit): 35 minutes - review labs and planned followup, continue to hold Revlimid Coordination of Care & Counseling Time: Greater than 50% of time spent with patient was for coordination of care (as documented) and [id number] counseling of patient and/or family. Dictated By: Brook Huddleston MD DD/ [id number] Signed By: <Electronically signed by MD Brook Huddleston> 09/03/22 0925 [facility] Work Phone: [phone] 467-158701-12-2023 Hospital Discharge instructions Follow Up Care 08/28/2022 09:22:13 With:Diego RICKS, OUSMANE Bell, URO Address: When:09/18/2022 11:27:00 Comments:Review TURP path [facility] 01-09-2023 Evaluation + Plan note Diagnostic Tests Pending * Urine Culture 08/25/[address] [facility]12-12-2022 Progress note Author Rosie Chew [facility] July 28, 2022 10:58am Note Date/Time July 28, 2022 10:45am [facility] at [address] [address] Hem/Onc Follow Up Note - OP Signed Patient: Patsy Mills MR#: [id number] : 1945 Acct:[id number] Age/Sex: 77 / M Type: REG RCR Copies to: Helen Heath MD~ Subjective Date/Time of Service: Date of Service: 07/28/2022 Time of Service: 10:44 Chief Complaint: Patient is here today for one month follow up visit and go overlabs HPI: 07/28/2022: Patsy is here for interval 1 month follow up; not much meter changes records clerk the past 1 month - of note, patient was taken off Revlimid on 06/27/2022 visit due to profound fatigue and no evidence of on recent Clonoseq testing. His primary complaint is urinary symptoms and increased urinary frequency - not sleeping well due to waking up frequently with urination. He is planning on undergoing TURP with Dr. Spicer this 07/31/2022. He is still fatigued, still not much energy or appetite; but overall no significant changes. He saw Dr. Hall on 07/03/2022 and his note was reviewed. He mentioned that it would bebeneficial for patient to continue Revlimid if able; he was also taken off Acyclovir and advised to follow up with Dr. Hall in 1 year with MRD testing. 06/27/2022: Patsy is here for followup to review Clonoseq testing that was still pending at last visit. He continues to have increased urine frequency andincontinence after prior Urolift surgery. He was given Mybetriq to manage urinefrequency but notes this was not well tolerated due to mouth sores, diarrhea, and headaches which improved after stopping the medication. No other concerningsymptoms although he has persistent fatigue and is frustrated with his quality of life. His Clonoseq returned at zero clonal cells. We noted since he has no evidence of disease in marrow and decreased quality of life, he will hold Revlimid x 1 month to see if symptoms improve. One month followup with [facility] to review labs and symptoms. He also has followup with Dr. Hall in one week and will inform him of plan for one month off Revlimid. He also may seek Urology second opinion. 05/23/2022: Noted to have Urolift procedure at [facility] last month, noted increased post-op pain that is slowly improving. On 05/16 he had injection of retinal hemorrhages for diabetic neuropathy. His bone marrow aspiration and biopsy for annual MRD testing was performed in interventional radiology on 04/30/2022, but specimen was not sent for Clonoseq MRD testing. No other new symptoms--12/2021: last M-spike negative and normal kappa/lambda light chain ratio. Bone marrow biopsy does not show morphologic evidence of myeloma but patient consented to bone marrow aspirate alone in clinic today to send for MRD testing. Other labs are stable--we will followup results in one month with repeat myeloma labs (serum protein electrophoresis, serum immunofixation, quantitative immunoglobulins, and kappa/lambda light chain ratio. Patient and agree with this plan over this low complexity 25 minute visit and 15 additional minutes for bone marrow aspiration. 02/05/2022: Patsy and his present for 1 month follow-up. No new symptoms--persistent stable fatigue. He underwent radiofrequency ablation of kidney stone by Dr. Seals at [place] on 01/14/2022 without complications. Sent off Revlimid since December 12, 2021 due to cytopenias. Otherwise no changes in clinical history. He is due for his second shingles shot and since he is otherwise stable with no recent infections he can receive his second dose. He did require transfusion of 2 units packed red blood cells for hemoglobin 6.7 on 01/23/2022. Hemoglobin has now improved to normal methylmalonic acid and homocystine, elevated iron saturation 72% and ferritin elevated to 663. Erythropoietin level was also elevated to 547.7 so he is not a candidate for erythrocyte stimulating agents. At this time I will continue to hold Revlimid since he has no evidence of M spike on his most recent serum protein electrophoresis or serum or urine immunofixation. Malden/lambda light chain ratio continues to decline to now 1.31 (normal). Due to his recent anemia we will hold his Revlimid another month and repeat his CBC in 1 month. If hemoglobin improving, we may consider resuming his maintenance Revlimid to 5 mg every other day. Next follow- up in April 2022 for repeat bone marrow biopsyin interventional radiology for specimen to be sent for minimal residual diseasetesting. I will follow-up with him 3 weeks thereafter for review of symptoms and bone marrow results, sooner as needed. 01/02/2022: Patsy and his are here for 3 month followup visit. She raised most of the concerns regarding worsening fatigue. He has been off He underwent a painful bone marrow by [facility] with Dr. Hall with nondiagnostic specimen. Dr. Hall recommended repeat bone marrow in the fall with MRD testing (we will set up with IR). I reviewed his f/u monoclonal gammopathy testing showing asymmetric gamma but no M-spike. Normal kappa/lambda light chain ratio. Hemoglobin declined to 8--elevated iron saturation and ferritin. I will check methylmalonic acid and homocysteine, erythropoietin, and may consider adding erythropoietin. Continue f/u with Dr. Crain. 10/03/2021: Patsy is here for 4-month follow-up of light chain myeloma. His brought me a thorough list of his recent hospitalizations since early August 2021. Recurrent weakness and dizziness as per chief complaint. --August 20 he was treated for UTI at [facility] ER, thenadmitted August 24 to [place] with dehydration and urosepsis with discharge August 29. 09/05/[address] Heath for continued antibiotics with Bactrim DS. Urine also returned positive for candidiasis and he was treated with fluconazole daily. He stopped his hydralazine and Lasix. --09/17/2021: He returned for labs and skeletal survey at [facility] and his potassium on blood work was markedly elevated. We contacted him and advised ER evaluation at [facility]. His potassium returned at 7.3 and he required hydration, calcium gluconate, insulin with bicarb, and had a negative Covid test. He was admitted and had unremarkable renal ultrasound, transfused 1 unit of blood for hemoglobin 7.3. Potassium and creatinine normalized and he was discharged home on 09/19/2021. Since that time he has had some improvement of energy but still has poor appetite and mild weakness. No fever, chills, or sweats. I will have him follow-up with nephrology and Dr. Heath for management of his potassium and creatinine. He denies any abdominal pain or bone pain and is otherwise compliant with maintenance Revlimid 5 mg daily. --Labs from 09/16/2021 did show mild elevation in creatinine 3.9 likely due to his electrolyte disturbances. His creatinine had increased from 1.29-2.11 likely due to dehydration. Serum M spike was not observed, but urine M spike was detected at 6.9. Urine immunofixation did not show monoclonal population and his urine M spike is likely due to his recent urinary infections. Serum kappa and lambda light chains were both elevated to 62.1 and 38.7 respectively with normal kappa/lambda ratio 1.6. Skeletal survey did not show any lytic lesions. At this time I would not change his maintenance Revlimid. He is due for follow-up with Dr. Hall at [facility] hematology in late October for 1 year follow-up bone marrow biopsy for MRD status. His next follow-up with me will be in 3 months or sooner as needed. 05/30/2021: 3 month followup--still no new symptoms. We discussed coronavirus booster, then flu vaccine, then will have post transplant vaccines in June. He is off gabapentin and rash resolved. Tolerates Revlimid 5mg daily. Stable kappa/lambda ratio--no M-spike serum and urine testing. Quant immunoglobulins normal. I will f/u with myeloma labs in 3 months--CBC, CMP, SPEP, quant IGs, kappa/lambda light chains and beta2 microglobulin. He and his are in agreement with this plan. Low complexity visit. 02/27/2021: Here for 3-month follow-up, prior autologous stem cell transplant 07/25/2020. No limitations of daily activities--normal appetite, denies pain. Previously noted increased rash over bilateral antecubital areas, chest and back. He is titrating off gabapentin due to improving neuropathy and rash mildly better. Still on Revlimid 5mg daily. Uses benadryl prn for pruritus andrash. Will contact for post transplant vaccines. Stable kappa/lambda ratio--no M-spike serum and urine testing. Quant immunoglobulins normal. I will f/u with myeloma labs in 3 months--CBC, CMP, SPEP, quant IGs, kappa/lambda light chains and beta2 microglobulin. He and his are in agreement with this plan. 11/26/2020: Patsy is here for followup after D86 bone marrow biopsy at [facility] on 10/18/2020. No evidence of MRD--0.5% plasma cells and no clonal plasma cells suggestive of residual myeloma. Tolerating maintenance Revlimid 5mg daily well. No bone pain and normal renal function--Dr. Vincent hasreleased for annual nephrology followup. He is fully vaccinated for [id number] and I contacted Dr. Hall for coordination of post transplant vaccines. Stable neuropathy with gabapentin escalated to 400mg am, 300mg midday, 400mg pm. Continues followup with palliative medicine. He has phone f/u with Dr. Hall later this week. I will f/u with myeloma labs in 3 months--CBC, CMP, SPEP, quant IGs, kappa/lambda light chains and beta2 microglobulin. He and his are in agreement with this plan. 10/15/2020: Patsy is here with his for transfer of care after Melphalan 100mg/m2 autologous stem cell transplant D0 = 07/25/2021. He is now D+83 and oneweek ago, he saw Dr. Hall for survivorship visit. We reviewed his post transplant course and prior infections have now resolved. Blood counts have recovered and renal function at prior baseline. He has persistent neuropathy ongabapentin 200mg am, 100mg noon, 200mg pm. I'm setting him up for palliative consultation (previously followed by WILFREDO Olivia). He has a followup bone marrow biopsy scheduled with Dr. Hall in 3 days to document remission. I will discuss with him the plan after bone marrow biopsy--I briefly discussed Revlimidmaintenance with Mr. Mills and his . I will contact patient after bone marrow results to confirm plan with Dr. Hall and f/u with him in about 6 weeks with myeloma labs. 07/02/2020: Patsy has completed all of his pretransplant evaluation at [facility] including cardiology visit 11 9 which showed ejection fraction 60%. I have contacted Dr. Hall who noted that today will be his last day of Velcade and we will hold his daratumumab. He was to have a COVID-19 teston 07/11/2020 for planned stem cell collection 07/17 and transplant on 07/23. I clarified with the staff at [facility] this this may be performed at [facility] and forwarded to them. 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 His pain mainly in hips is about 3 out of 10 and controlled with Percocet. His next follow-up with me yeni be in about 4 months when he is post transplant although I am happy to see him sooner if new issues arise in his post transplant course that need to bemanaged closer to home. His most recent labs reveal improving hemoglobin (11.5), stable renal function (creatinine 1.35), normal calcium, and appropriateresponse of kappa light chain to now normal 18 with K/L ratio 2.02. 06/04/2020: Met with Dr. Hall on 05/24/2020 to discuss planning for high-dose chemotherapy peripheral blood stem cell transplant. He has now hemodialysis independent after daratumumab, dexamethasone, and Velcade with addition of Revlimid. Today he reports that he has had increased neuropathy symptoms in hisbilateral hands and feet with mild interference with activity (grade 2). We discussed a 25% dose reduction of Velcade on day 1, day 4, day 8, day 11 with current cycle of DVdR. He has some leg cramps at night, with normal magnesium, but low iron saturation noted--will start daily iron for symptoms. Otherwise heis tolerating therapy well and creatinine is now normal. He was given educationfor the transplant course and he is scheduled in late June after to proceed with stem cell collection and transplant. I will communicate with Dr. Hall regarding end of therapy and in 1 month I will see him with follow-up myeloma studies. No other new concerns today. 05/07/2020: Patsy is here for 1 month follow-up. Outpatient hemodialysis was stopped after 04/24/2020 due to excellent response. He was evaluated by Dr. Small at [facility] on 04/26/2020. Angel and his note that Dr. Hall felt that he was physiologically about 8 years younger than his chronologic age and would likely be transplant eligible if pretransplant work-updeems this feasible. He recommended continuing current daratumumab and Velcade with low-dose Revlimid. He will reevaluate patient in 1 month and likely plan admission for stem cell collection, then high-dose chemotherapy/autologous stem cell transplantation in June or July. The patient's was concerned that she did not understand much of the pretransplant teaching and I explained to her and Don the pathophysiology of plasma cells, light chains, his improving trend of renal function, goal of 90% kappa/lambda ratio reduction prior to transplant. We also refilled Revlimid 5 mg every other day, weekly vitamin D, and I am giving him a trial of tramadol 50 mg every 12 hours as Tylenol is not effective for his pain and we are avoiding NSAIDs and additional aspirin. He otherwise has no toxicities of chemotherapy. He sees Dr. Heath for follow-up tomorrow and maintains insulin with stabilization of his blood sugars following with diabetes management clinic. I will see him in follow-up with myeloma labs in 1 month plan end of therapy prior to transplant. 04/09/2020: Here for one month f/u with his . He continues outpatient hemodialysis on Thursday//Saturdays. He notes fatigue, but generalized edema remarkably improved with no significant pain. I reviewed his M-spike, IgGand kappa light chains with K/L ratio that has remarkably improved (>90% reduction past month). Malden light chains decreased from 12,000 to 42. Only concern is significant hyperglycemia with dexamethasone. 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 I will coordinate evaluation by Dr. Quique Hall for HDC/autologous stem cell transplantevaluation and hold on adding Revlimid since significant response of light chains noted. I contacted Dr. Rahman of nephrology to consider reducing hemodialysis days to twice weekly. I will send myeloma labs in about 4 weeks, have him see Dr. Hall and f/u with me the following week to review plan and determine whether plan for HDC/stem cell transplant. 03/14/2020: Patient presents with his today after initiating both outpatienthemodialysis on Thursday//Saturdays and initial cycle of daratumumab, bortezomib, dexamethasone with potential addition of Revlimid after 1 month if less than optimal response. He received his first cycle of combination chemotherapy 03/12/2020. --Patient tolerated initial daratumumab infusion reasonably well with brief infusion reaction (dizziness and mild wheezing) that was treated with diphenhydramine, steroids, albuterol, and Demerol for rigors. He completed remaining infusion in an outpatient bed on the inpatient [facility] Thursday and we anticipate further weekly daratumumab infusions as an outpatient. --Patient was seen at dialysis today and noted to have hemoglobin 6.8. He will receive 1 unit of packed red blood cells prior to Velcade today for scheduled tomorrow. His was unable to be present at the hospital at time of diagnosis and his initial bone marrow biopsy was performed on 03/08/2020. She requests evaluation with him today for extensive questions regarding his care. She reported her session and requested a copy of this progress note following our visit today. 1. She asked if all the tests at the hospital returned. We discussed the teststhat are used to follow-up myeloma including his elevated IgG, elevated free kappa light chains, and elevated M spike. We discussed in detail the pathophysiology of myeloma but she felt very anxious and overwhelmed and I reassured her that we will readdress this at further follow-up visits. 2. Patient had a metastatic bone survey showing no areas of lytic disease or pathologic fractures. We discussed CRAB criteria for multiple myeloma diagnosisand that he meets criteria of R renal and A anemia, but not elevated calcium or bone disease (C and B). She specifically asked is stage of multiple myeloma andwe noted that he still will require beta-2 glycoprotein (ISS) but is most consistent with stage III. We are still awaiting his chromosomal abnormalities by fluorescence in situ hybridization and will readdress at next follow-up visitwith his final bone marrow biopsy results (this study was only performed 03/08/2020). 3. She wanted to know if his testing showed cancer elsewhere. We discussed that since metastatic bone survey showed more lytic areas I do not feel that F-18 PET is high priority but this may be ordered at some point to assess for any asymptomatic bony metastatic disease. 4. He has recently had elevated blood sugars and does not have a history of diabetes, but we discussed that with weekly steroids he should likely have additional insulin on his steroid days. I offered that this could be managed byhis primary physician Dr. Heath and he could be referred for diabetes management clinic. 5. We reiterated multiple times that his schedule may be variable. He will typically have a long infusion on Mondays with daratumumab but initially he willpresent twice weekly for Velcade injection on Mondays and . This will change during the course of his therapy and he should refer to his calendar. 6. We discussed not taking additional vitamins unless approved by nephrology. I also discussed potentially adding Revlimid and we will address at future visits if this is needed based on his follow-up labs ordered 04/02/2020. His medications may be filled either locally or with his prescription plan, but manyof these will be ordered by nephrology. He is to continue vitamin D2 as recommended by nephrology. Blood pressure medications will be regulated by primary care and nephrology. 7. We discussed concerning side effects, most commonly hyperglycemia, insomnia,risk of thrombosis (recently was diagnosed with left superficial thrombosis of the left upper extremity and additional heparin is given with his dialysis), andneuropathy with Velcade. Patients do not tend to have significant nausea or possible appetite (effects of dexamethasone increase his appetite). I cannot recommend medical marijuana and would discuss this with his pre coder whetherthis would interfere with dialysis. We will also follow closely for cytopenias and reviewed infectious precautions. He has a son from [place] who plans to visit on Thursday and we discussed COVID-19 testing appropriate social isolation protocols. 8. We discussed whether he was eligible for transplant and this will be evaluated based on his response and overall health in likely 3 to 4 months afterinitiation of therapy. We did not discuss autologous stem cell transplant in detail. We did discuss that although this is not curative therapy, many patients are controlled with medication over longer periods of time (often 5 to 6 years) with appropriate therapy. It is an aggressive cancer due to its significant infectious risk and association with renal failure. 9. Exercise may be performed as tolerated but should be done in moderation and likely we should wait a few weeks for more significant exercise given his recentdialysis and initiation of chemotherapy. I did not specifically address his diet but he may address this with our [facility] nutrition team. He will also receivechemotherapy class with our nurses in the infusion center. PRELIMINARY HISTORY (from initial consult 03/08/2020): This is a now 77-year-old male who was transferred from [place] emergency room by [facility] due to critical potassium 8.7 with elevated creatinine 11.2 and BUN 82 on 03/04/2020. We do not have any recent blood work for comparison but hehad normal creatinine in 2012. He was urgently treated for his hyperkalemia anddialysis was arranged emergently by nephrology team. He has now stabilized on dialysis and had extensive work-up for etiology of his acute renal failure with severe anemia felt to be due to anemia of renal insufficiency. Iron studies returned normal with ferritin 160, but B12 low at 84 and folate low normal at 5.2. He is receiving appropriate B12 repletion. The patient reports that he has had a prolonged period of fatigue up to a year and has decreased appetite with subjective weight loss. He denies any significant bone pain other than pain in his right shoulder and has no prior falls or recurrent back pain. He had a shoulder film showing labral pathology of the joint but no fracture or dislocation. Myeloma labs were sent showing M spike 3.6 g/dL with serum immunofixation showing IgG kappa light chain specificity. Serum IgG markedly elevated at 5312 and free kappa light chain 12,649.9 with normal free lambda light chain 11.94 free kappa/lambda ratio 1063. Hepatitis A, B, and C serologies were all negative and COVID-19 screening was negative. LORE, c-ANCA, p-ANCA, anti-GBM, and antimyeloperoxidase were all negative. Clinically the patient has multiple myeloma and I explained that we needed to proceed with bone marrow aspiration and biopsy to provide baseline for diagnosis and to expedite chemotherapy with an aggressive regimen to reduce his light chains. I will review information with him at noon today around the time of his bone marrow biopsy for combinationdaratumumab 16 mg/kg IV weekly, bortezomib 1.3 mg/kg subcu twice weekly, dexamethasone 40 mg weekly, and Revlimid 25 mg p.o. daily days 1 through 14 of each 21-day cycle. Revlimid will be ordered through a special pharmacy. We will schedule his infusions as an outpatient early next week on his nondialysis days. Written literature for these medications will be provided and he may signinformed consent so that we may order this regimen as an outpatient. The patient's is not with him today but has been treated by me for breast cancer in the past and had multiple questions. We would like to arrange a time for her to be available to ask questions and be present for chemo consent, possibly around noon today. This will need to be coordinated with nursing staffdue to [facility]. - Summary of Therapies Summary of Therapies: Cycle 1 day 1 03/12/2020: Daratumumab 16 mg/kg IV weekly, bortezomib 1.3 mg/kg subcu twice weekly, dexamethasone 40 mg weekly. 04/09/2020: Under direction of Dr. Hall, in early April we added Revlimid 5 mg every other day of each 21-day cycle with cycle 2 due to excellent response of kappa light chains. 04/26/2020: Malignant hematology eval for possible high-dose chemotherapy/autologous stem cell transplant. He was able to stop dialysis 04/24/2020. Given Velcade only (hold daratumumab) on 07/02/2020. 07/25/2020: Melphalan 100mg/m2 IV day 0 autologous stem cell transplant 07/25/2020at [facility]. 11/26/2020: Follow-up bone marrow aspiration and biopsy 10/18/2020 for MRD evaluation shows hypocellular marrow with 0.5% plasma cells, no clonal population by flow cytometry but 0.03% kappa light chain skewing. Started Revlimid 5 mg daily for maintenance therapy early October 2020. Nondiagnostic bone marrow for MRD in spring 2021 at . Planned follow-up bone marrow biopsy for MRD at [facility] fall 2021. -- 02/05/2022: Revlimid on hold since 12/12/2021 for cytopenias. Continue to follow off Revlimid 1 more month, then with improved anemia in 02/2022, we resumed 5 mg every other day maintenance. -- 06/27/2022: Holding Revlimid 5mg every other day one month due to undetectable clonal cells on Clonoseq, increased fatigue/urinary symptoms. --07/28/2022: Continue to HOLD Revlimid for time being; as patient is still fatigued and will be undergoing TURP with Dr. Spicer of urology on 07/31/2022. ROS Details: All systems reviewed & no additional complaints except as documented Subjective/ROS - Narrative: CONSTITUTIONAL: Mild increased chronic fatigue since HD Melphalan/ASCT 07/2020, negative for fever or night sweats. Post-transplant infections as per HPI, now resolved. HEAD AND NECK: Stable vision since control of his diabetes mellitus. Negative for changes in hearing. Negative for mouth ulcers, nasal congestion and nasal drainage. PULMONARY: Negative for chest pain, cough and dyspnea. CARDIOVASCULAR: Negative for claudication and irregular heartbeat/palpitations. Resolved edema since diagnosis, now off dialysis. GASTROINTESTINAL: Negative for abdominal pain, constipation, diarrhea, nausea orvomiting. Improved appetite and 20 kg weight loss after starting dialysis, chemotherapy, and transplant for light chain nephropathy. 11/2020--returned to baseline weight pretransplant. GENITOURINARY: Negative for dysuria and hematuria. Improved urinary output, diagnosed in February 2020 with renal failure requiring dialysis--off dialysis 04/24/2020. Prior nephrolithiasis previously followed by Dr. Seals--recent ESWL 01/14/2022 at [place]. ENDOCRINE: Negative for cold intolerance and heat intolerance. Improvement of prior hyperglycemia with home blood sugars in the 100-200s on supplemental insulin glargine. CENTRAL NERVOUS SYSTEM: Negative for gait disturbance and headache. No focal neurologic deficits or history of stroke. 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 PSYCHIATRIC: Negative for anxiety or depression. DERMATOLOGICAL: Positive for pruritus and rash as per HPI. Negative for suspicious skin lesions. MUSCULOSKELETAL: Resolved back pain and and thigh pain. Resolved leg cramps, improved neuropathy. No longer on ferrous sulfate post transplant. HEMATOLOGICAL: Negative for bleeding and easy bruising. Transfusion 2 units packed red blood cells 01/23/2022 for hemoglobin 6.7. Only other transfusion was 2 units red cells October 2021. Positive for left basilic vein thrombus on Doppler ultrasound 03/12/2020--no longer requires anticoagulation. Revlimid decreased to 5mg every other day--holding 06/27/2022 for one month. ALLERGY: Negative for environmental allergies and food allergies. [facility] - Medical History Medical History: Medical History (Last Reviewed 06/28/22 @ 13:47 by Brook Huddleston MD) Apnea Arthritis Diabetes mellitus, type 2 Hyperlipidemia Hypertension Kidney stones Multiple myeloma Skin cancer - Family History Family History: Family History (Last Reviewed 06/28/22 @ 13:47 by Brook Huddleston MD) Sister Myocardial infarct Mother Myocardial infarct Father Skin cancer - Social History Smoking Status: Former smoker Tobacco Type: cigarettes Substance Use Type: None Home Medications & Allergies Allergies gabapentin Allergy (Verified 07/28/22 10:12) Rash mirabegron [From Myrbetriq] Adverse Reaction (Verified 07/28/22 10:12) Diarrhea Home Medications famotidine 20 mg tablet 20 mg PO DAILY #30 tabs 03/10/20 [Rx Confirmed 07/28/22] insulin glargine 100 unit/mL (3 mL) subcutaneous pen (Lantus Solostar U-100 Insulin) 25 unit subcut DAILY 04/27/20 [History Confirmed 07/28/22] insulin lispro 100 unit/mL subcutaneous pen (Humalog KwikPen (U-100) Insulin) 6 - 16 unit subcut DIRECTED 04/27/20 [History Confirmed 07/28/22] atorvastatin 20 mg tablet 20 mg PO DAILY 10/15/20 [History Confirmed 07/28/22] cholecalciferol (vitamin D3) 50 mcg (2,000 unit) capsule (Vitamin D3) 50 mcg PO DAILY 10/15/20 [History Confirmed 07/28/22] aspirin 81 mg tablet,delayed release 81 mg PO DAILY 11/26/20 [History Confirmed 07/28/22] metformin 500 mg tablet 500 mg PO BID 11/26/20 [History Confirmed 07/28/22] acyclovir 400 mg tablet 400 mg PO BID 60 days #120 tabs 12/26/21 [Rx Confirmed 07/28/22] potassium chloride 20 mEq tablet,extended release 20 meq PO DAILY #90 tabs 06/23/22 [Rx Confirmed 07/28/22] lenalidomide 5 mg capsule (Revlimid) See Rx Instructions .Route .COMPLEX #14 caps 06/27/22 [Rx Confirmed 07/28/22] oxybutynin chloride 5 mg tablet 2.5 mg PO DAILY 07/28/22 [History Confirmed 07/28/22] Objective - Height/Weight Height/Weight: Height 5 ft 10 in Weight 90.2 kg BSA for Today's Weight 2.10 - Vital Signs Vital Signs: 07/28/22 10:14 Temperature 97.8 F Pulse Rate [Monitor] 77 Respiratory Rate 16 Blood Pressure [Left Arm] 152/81 H 02 Sat by Pulse Oximetry 98 Oxygen Delivery Method Room Air - Pain Right Hip Pain Intensity: 5 Generalized Pain Intensity: 1 Left Upper Arm Pain Intensity: 4 Results - Labs Labs: Diagram of Most Recent CBC and CMP 07/21/22 13:13 07/21/22 13:13 Labs - Last 7 Days 07/21/22 13:14: Urine Immunofixation 07/21/22 13:13: Ur Random Albumin 35.7, U Random Total Protein 95.7, U Suzfb-3-Knprrnjn (%) 6.5, U Random a-1-Blvwheuo % 18.3, U Random b-Globulin % 20.8, U Random Gamma Glob % 18.6, U Random M-Anselmo (%) Comment:, Urine Random PEP Note 07/21/22 13:13: Serum Total Protein 5.9 L, Albumin (Send Out) 2.9, Globulin (PEP) 3.0, Albumin/Globulin (PEP) 1.0, Cdacj-6-Irnxggpmn 0.4, Qhlwd-1-Qayecwccz 1.0, Beta Globulins 0.8, Gamma Globulins 0.8, M-Anselmo Comment:, PEP Note , IgG 905, IgA 208, IgM 24, Free [place] LC, Quant 39.4 H, Free Lambda LC, Quant 24.3, Free [place]/Lambda Ratio 1.62 07/21/22 13:13: PHA Creatinine Clear 35.77, Sodium 128 L, Potassium 4.7, Chloride 100, Carbon Dioxide 17.1 L, Anion Gap 15.6 H, BUN 26 H, Creatinine 1.95H, Est GFR ( Amer) 41, Est GFR (Non-Af Amer) 34, Glucose 191 H, Calcium 8.6, Total Bilirubin 0.7, AST 27, ALT 37, Alkaline Phosphatase 110 H, Lactate Dehydrogenase 145, Total Protein 5.8 L, Albumin 3.0 L, Globulin 2.8, Albumin/Globulin Ratio 1.1 07/21/22 13:13: PT Cancelled, INR Cancelled, APTT Cancelled 07/21/22 13:13: Corrected WBC 3.9 L, Uncorrected WBC Count 3.9 L, RBC 2.30 L, Hgb 8.6 L, Hct 25.2 L, MCV 109.5 H, MCH 37.2 H, MCHC 34.0, RDW 17.1 H, Plt Sonun338 L, MPV 8.3, Neut % (Auto) 70.5, Lymph % (Auto) 13.1, [place] % (Auto) 13.2, Eos% (Auto) 3.0, Baso % (Auto) 0.2, Nucleat RBC Rel Count 0.1, Neut # (Auto) 2.7, Lymph # (Auto) 0.5 L, [place] # (Auto) 0.5, Eos # (Auto) 0.1, Baso # (Auto) 0.0 Assessment and Plan - TNM Staging Staging: 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 He had marked elevation in IgG kappa on initial laboratory work-up for renal failure in February 2020. He has remained hemodynamically stable and I discussed in detail with the patient the pathophysiology of multiple myeloma and associated injury to kidneys, persistentanemia, bone disease, and potential hypercalcemia (we do not see hypercalcemia in this patient). He consented to inpatient bone marrow biopsy 03/08/2020 which was diagnostic for multiple myeloma--70% plasma cells without amyloid depositionidentified in small marrow specimen. Normal baseline skeletal survey. I reviewed pathophysiology of myeloma, results of bone marrow biopsy, skeletal survey, and myeloma labs with the patient and his . Patsy consented to begin first cycle Daratumumab, Velcade, and dexamethasone on03/12/2020--other than infusion reaction from first Daratumumab, improved with symptomatic therapy. I reviewed his case with Dr. Quique Hall of Malignant Hematology--added Revlimid 5mg qod following significant reduction of light chains in early April 2020. 05/07/2020: As per HPI, Angel and his met with Dr. Hall 04/26/2020 with preparation for likely high-dose chemotherapy/autologous peripheral stem cell transplant if he meets criteria based on cardiopulmonary work-up. He has had greater than 90%. The patient was able to discontinue hemodialysis on 04/24/2020 and has not had any recurrence of edema with now improved renal function, creatinine clearance now 53. --I will continue current therapy with further evaluation by Dr. Hall in 1 month for planning his HDC/autologous stem cell transplant. We will send repeatmyeloma labs (SPEP, IgG, kappa/lambda light chains) in 4 weeks with f/u visit with me the following week to review results as well as evaluation with Dr. Hall for possible stem cell transplant. 06/04/2020: Tolerating chemotherapy well other than increasing neuropathy of hands and feet. Dose reduced Velcade by 25% next cycle. Added daily ferrous sulfate. --He was referred to diabetes management clinic and sees Dr. Heath with regularfollow-up by Dr. Rahman since he is off dialysis. Diabetes control improved. 07/02/2020: Last dose of Velcade today. Neuropathy is stable and pain is well controlled. He will have COVID-19 test on 07/11/2020 for planned admission for stem cell collection on 07/17/2020 then high-dose melphalan followed by peripheral blood stem cell transplant day 0 scheduled 07/23/2020. His next follow-up with me will be in about 4 months after he is completed day 100 transplant follow-up. He may return sooner as needed. 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 Melphalan 100mg/m2 + ASCT Day 0 07/25/2020. 11/26/2020: Followup of [facility] end of therapy bone marrow biopsy 10/18/2020--no minimal residual disease. Started Revlimid maintenance 5mg daily in early October2020. 02/27/2021: No new symptoms other than rash. Slow improvement of neuropathy--titrating off gabapentin with palliative medicine. Benadryl for rash. Continue Revlimid 5mg daily. He will be due for first post transplant vaccines sooner--will check schedule with . 05/30/2021: Rash and neuropathy improved. Tolerating Revlimid well. Discussedcoronavirus booster and influenza vaccines. Post transplant vaccines due in 07/2021. No M-spike and normal kappa/lambda ratio. 10/03/2021: Multiple admissions for hyperkalemia, renal insufficiency due to dehydration, anemia requiring transfusion. Still feels weak and dizzy and his electrolyte disorders are being managed by primary care. No detectable M spike's and kappa/lambda light chain ratio is normal with elevated levels of both likely due to recent infections. Skeletal survey without new lytic lesions. He is due for MRD bone marrow follow-up with Dr. Hall next month. For now continue Revlimid 5 mg daily. 01/02/2022: Patient presents with his who is concerned with increasing fatigue. He has had a decline in his hemoglobin to 8 although his renal function is actually improved from prior values with creatinine clearance of 50. We sent serum iron profile showing increased iron stores with iron saturation 72% and ferritin 663. Homocystine was normal methylmalonic acid is pending. [place] also send an erythropoietin level to see if there may be a benefit to adding erythropoietin for anemia of chronic kidney disease. He will continue to follow with Dr. Meade. He still has no M spike on serum protein electrophoresis and normal kappa/lambda light chain ratio. MRD testing at [facility] was nondiagnostic and he will have repeat bone marrow biopsy here with me to send MRD testing. Next followup with me in 3 months for exam and f/u myeloma labs. We will coordinate his bone marrow biopsy at that time. He will continue follow-up by nephrology for chronic kidney disease although his prior hyperkalemia has improved on recent labs. May return sooner if new issues arise. 02/05/2022: Patient has persistent fatigue although did require transfusion 2 weeks ago for hemoglobin 7.6. Iron studies show increased iron saturation and ferritin with normal methylmalonic acid and homocystine. Erythropoietin level is elevated therefore he does not have an indication for erythrocyte stimulating agents. Myelosuppression is likely due to prior Revlimid and I willkeep him off therapy for another 1 month with repeat CBC at that time. If anemia is improving I will resume Revlimid at 5 mg every other day maintenance therapy. He will be scheduled for MRD bone marrow at [place] [facility] in April 2022, then follow-up with me with review of myeloma labs 3 months after this procedure. He still has undetectablemonoclonal spike and normal kappa/lambda light chain ratio on most recent labs. Renal function is improving since ESWL at [place] in late December. 05/23/2022: No new issues, bone marrow biopsy 04/30/2022 in shows no morphologic evidence of myeloma, but specimen was not sent for MRD testing. Patient agreed to bone marrow aspirate only today performed for MRD testing and documented in a separate procedure note. Normal trilineage hematopoiesis on bone marrow biopsy with increased iron stores. Revlimid now down to 5mg every other day. Will review MRD testing with myeloma labs (SPEP for monoclonal spike and kappa/lambda light chain ratio) at next followup in 4 weeks. Considerfurther Revlimid dose reduction if persistent anemia on CBC with CMP and if MRD negative. 06/27/2022: Notes increased fatigue and increased urine frequency despite recent Urolift procedure. Intolerant of Myrbetriq. Clonoseq reveals no clonal tumor cells. Recommend holding Revlimid 1 month for cytopenias and persistent fatigue due to quality of life concerns. He will followup with Dr. Hall next week to discuss holding Revlimid. If symptoms improved at one month followup with [facility] [facility], he will followup with me in one month with CBC, CMP, SPEP for monoclonal spike and kappa/lambda light chain ratio. 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 His primary complaint is urinary symptoms and increased urinary frequency - not sleeping well due to waking up frequently with urination. He is planning on undergoing TURP with Dr. Spicer this 07/31/2022. He is still fatigued, still not much energy or appetite; but overall no significant changes. He saw Dr. Hall on 07/03/2022 and his note was reviewed. He mentioned that it would bebeneficial for patient to continue Revlimid if able; he was also taken off Acyclovir and advised to follow up with Dr. Hall in 1 year with MRD testing. - follow up in [address] Huddleston with CBC, CMP, SPEP for monoclonal spike and kappa/lamda light chain ratio. - continue to hold Revlimid pending urology procedure and continued fatigued. Dr. Hall discussed resuming Revlimid if able- per , he discussed decreasingdosage to 2.5 mg. - most recent labs show stable renal fxn; continued anemia with hgb - 8.6 and platelet count 101,000. No monoclonality with urine immunofixation; recent SPEP showed asymmetrical beta. (2) Anemia of renal disease Hemoglobin has decreased to 8 and iron stores show increased iron saturation andferritin. He no longer takes supplemental iron but has ongoing B12 repletion 1 mg p.o. daily. Methylmalonic acid is pending to assess whether B12 repletion isadequate. We are also sending an erythropoietin level and if methylmalonic acidis normal, we will initiate erythropoietin therapy for anemia of chronic kidney disease. I will update nephrology if decision to add erythrocyte stimulating agent therapy. I will contact him with these results and coordinate repletion therapy. In addition the patient is on chronic Revlimid which it is myelosuppressive. -- Revlimid has was on hold 12/12/2021. He did require transfusion in early Januaryand had elevated iron saturation and ferritin, normal methylmalonic acid and homocystine, and increased erythropoietin level. We resumed Revlimid in early February. MRD bone marrow aspirate sent today--no dysplasia on bone marrow biopsy. For now may continue Revlimid 5mg every other day and consider further dose reduction if persistent anemia with MRD negative on f/u in one month. --As noted above we are holding Revlimid one month due to quality of life concerns and cytopenias. If improved symptoms at one month followup off Revlimid, we may continue to hold Revlimid and follow every 3 months. --Stable symptoms off Revlimid x 1 month at 07/28/2022 follow up (3) History of hemodialysis Initiated inpatient hemodialysis 02/2020, then transitioned to outpatient hemodialysis 3 times weekly Thursday//Thursday schedule. Chemotherapy given Thursday/. 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 He was actually able to stop dialysis within 2 months with the last session 04/24/2020 as noted above. Now 23 months after Melphalan 100mg/m2 + autologous PBSCT given his significant response to initial myeloma directed therapy. Continued f/u with nephrology for stage III chronic kidney disease/resolved hyperkalemia. (4) Steroid-induced diabetes mellitus Qualifiers: Encounter type: subsequent encounter Qualified Code(s): E09.9 - Drug or chemical induced diabetes mellitus without complications; T38.0X5D - Adverse effect of glucocorticoids and synthetic analogues, subsequent encounter Patsy had an excellent response of light chains but was noted to have significant hyperglycemia 300-500 fasting blood sugars. He was referred to diabetes management clinic with addition of insulin therapy that has significantly improved control of his blood sugars. Patient also had remarked on some blurred vision that improved with control of blood sugars. Continue follow-up of blood sugars during admission for transplant in early July. 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 Resumed low dose metformin and titrating down insulin--directed by his primary physician. Recent injection (likely Avastin) for diabetic retinopathy. (5) B12 deficiency Patient was found to have B12 deficiency and was been placed on daily B12 prior to hospital discharge. We continued weekly IM B12 for 8 weeks with his myeloma regimen. Hemoglobin is improved on Aranesp and weekly B12, then changed to monthly maintenance therapy. He has not required further blood transfusions since 03/15/2020. Follow- up methylmalonic acid on 04/30/2020 was normal showing adequate replacement. He will continue monthly IM B12 and weekly vitamin D2 therapy 50,000 units orally for low 25 hydroxy vitamin D stores. He may take supplemental calcium once daily. -- Repeat methylmalonic acid normal and will continue current B12 dosing (6) Encounter for chemotherapy management Started cycle 1 day 1 03/12/2020: Daratumumab 16 mg/kg IV weekly, bortezomib 1.3 mg/kg subcu twice weekly, dexamethasone 40 mg weekly. We added Revlimid 5 mg every other day of each 21-day cycle with cycle 2 due to excellent reduction of kappa light chains (recommended by Dr. Hall malignanthematology). 06/04/2020: 25% DR Steven (100% all other meds) due to worsening neuropathy. Last dose of bortezomib 07/02/2020 and holding daratumumab per request of Dr. Hall. 07/25/2020: Melphalan 100mg/m2 + autologous PBSCT 10/18/2020: Started Revlimid 5 mg daily maintenance after bone marrow biopsy negative for MRD. Repeat MRD bone marrow at [facility] in 3 months because spring 2021 bone marrow at was nondiagnostic. -- Revlimid on hold 12/12/2021 due to myelosuppression. Continue to hold at 02/05/2022 follow-up visit. Resumed 5mg po every other day around February 2022 and will continue for now pending MRD testing. 06/27/2022: Now holding Revlimid due to fatigue and undetectable Clonoseq. 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 - planning to hold Revlimid with pending urology procedure for additional month;reviewed Dr. Hall's note from 07/03/2022; he mentioned it would be beneficial for patient to continue Revlimid if able - possibly at lower dose of 2.5 mg. [address] at next follow up visit with labs in 1 month. - Chemo Plan Chemo Plan (Dose, Rate, Freq): 09/25/2019: Melphalan 100mg/m2 + autologous PBSCT-->10/2020 Revlimid 5mg daily maintenance after MRD bone marrow biopsy. On hold 12/12/2021 due to anemia then 02/2022 resumed 5mg every other day. 06/27/2022: Revlimid on hold due to fatigue, cytopenias, and undetectable Clonoseq 07/28/2022: Hold Revlimid x 1 more month due to stable labs and pending urological procedure. Goal of Treatment: Control - Time with Patient Time Spent with Patient (Follow Up Visit): 35 minutes Coordination of Care & Counseling Time: Greater than 50% of time spent with patient was for coordination of care (as documented) and [id number] counseling of patient and/or family. Dictated By: Rosie Chew APRN DD/ [id number] Signed By: <Electronically signed by JACKIE Chew> 07/28/22 1055 [facility] Work Phone: [phone] 340-837711-21-2022 Hospital Discharge instructions Patient Education 07/07/2022 18:01:00 EU - Cystoscopy Discharge Instructions (CUSTOM) Cystoscopy Voiding after the procedure: there may be some pain, burning, urgency, frequency and blood tinged urine following the procedure. These symptoms usually resolve within 2-5 days. Drink the amount of fluid it takes to keep the urine pink to yellow or clear in color. Drinking enough water and fluids will help to ease any discomfort after your procedure. If you are having problems that seem out of the ordinary, please call. If unable to contact your physician and you feel it is an emergency, go to the nearest emergency room or call 911 Diet you may resume your normal diet. Activity you may resume your normal activities Call if you have a fever over 100 degrees. Follow Up Care 07/04/2022 14:41:36 With:Vesna Cortez Address:Unknown When: Unknown Comments:Bladder US, schedule TURP [facility]11-21-2022 Evaluation + Plan noteExtracted from: Title:[facility] Clinic Note Author:Vesna Cortez MD Date:07/07/22 Impression and Plan 77 yo M with DM2, MM, severely bothersome LUTS (q1h frequency/urgency and nocturia) worse after Urolift. -UTId negative for infection -Cysto today - narrow but patent anterior channel. Suspect implants are irritating bladder neck even though not visible in lumen. Discussed UDS to better evaluate underlying pathology, however pt will not tolerate this and declined this workup. After discussion of risks/benefits of mgmt options, he elected to proceed with: -Bladder US with prostate sizing (prior workup by Dr Seals noted 45g on cysto, will obtain imaging to confirm) -Schedule TURP, removal of foreign body (if encountered during TURP). The procedural risks, benefits, details, and treatment alternatives have been discussed with the patient. These include bleeding, infection, need for blood transfusion, continued urinary difficulties, urinary leakage which could be permanent, need for catheter, retrograde ejaculation, scar tissue formation in the urinary channel or area of prostate shaving, erection problems, blood clot formation in the lower extremities which could travel to the lungs, among others. A secondary operation could also be required. Full informed consent has been obtained. Will order General anesthesia. -He understands he may continue to have OAB symptoms after outlet further addressed and may need additional procedures such as Botox in the future -Cont Oxybutynin 5 mg ER, increase to BID as sx control runs out per pt -Tight DM control Future Appointments Appointment Date:08/06/2022 10:00:00 AM Scheduled Provider:Vesna Cortez MD [place] [facility] [place] Appointment Type:URO Office Visit [facility]11-18-2022 Hospital Discharge instructions Patient Education 07/04/2022 10:59:43 Benign Prostatic Hyperplasia Benign Prostatic Hyperplasia Benign prostatic hyperplasia (BPH) is an enlarged prostate gland that is caused by the normal agingprocess and not by cancer. The prostate is a walnut-sized gland that is involved in the production of semen. It is located in front of the rectum and below the bladder. The bladder stores urine and the urethra is the tube that carries the urine out of the body. The prostate may get bigger as a man gets older. An enlarged prostate can press on the urethra. This can make it harder to pass urine. The build-up of urine in the bladder can cause infection. Back pressure and infection may progress to bladder damage and kidney (renal) failure. What are the causes? This condition is part of a normal aging process. However, not all men develop problems from this condition. If the prostate enlarges away from the urethra, urine flow will not be blocked. If it enlarges toward the urethra and compresses it, there will be problems passing urine. What increases the risk? This condition is more likely to develop in men over the age of 50 years. What are the signs or symptoms? Symptoms of this condition include: Getting up often during the night to urinate. Needing to urinate frequently during the day. Difficulty starting urine flow. Decrease in size and strength of your urine stream. Leaking (dribbling) after urinating. Inability to pass urine. This needs immediate treatment. Inability to completely empty your bladder. Pain when you pass urine. This is more common if there is also an infection. Urinary tract infection (UTI). How is this diagnosed? This condition is diagnosed based on your medical history, a physical exam, and your symptoms. Tests will also be done, such as: A post-void bladder scan. This measures any amount of urine that may remain in your bladder after you finish urinating. A digital rectal exam. In a rectal exam, your health care provider checks your prostate by putting a lubricated, gloved finger into your rectum to feel the back of your prostate gland. This exam detects the size of your gland and any abnormal lumps or growths. An exam of your urine (urinalysis). A prostate specific antigen (PSA) screening. This is a blood test used to screen for prostate cancer. An ultrasound. This test uses sound waves to electronically produce a picture of your prostate gland. Your health care provider may refer you to a specialist in kidney and prostate diseases (urologist). How is this treated? Once symptoms begin, your health care provider will monitor your condition (active surveillance or watchful waiting). Treatment for this condition will depend on the severity of your condition. Treatment may include: Observation and yearly exams. This may be the only treatment needed if your condition and symptoms are mild. Medicines to relieve your symptoms, including: ?Medicines to shrink the prostate. ?Medicines to relax the muscle of the prostate. Surgery in severe cases. Surgery may include: ?Prostatectomy. In this procedure, the prostate tissue is removed completely through an open incision or with a laparoscope or robotics. ?Transurethral resection of the prostate (TURP). In this procedure, a tool is inserted through the opening at the tip of the penis (urethra). It is used to cut away tissue of the inner core of the prostate. The pieces are removed through the same opening of the penis. This removes the blockage. ?Transurethral incision (TUIP). In this procedure, small cuts are made in the prostate. This lessens the prostate's pressure on the urethra. ?Transurethral microwave thermotherapy (TUMT). This procedure uses microwaves to create heat. The heat destroys and removes a small amount of prostate tissue. ?Transurethral needle ablation (TUNA). This procedure uses radio frequencies to destroy and remove a small amount of prostate tissue. ?Interstitial laser coagulation (ILC). This procedure uses a laser to destroy and remove a small amount of prostate tissue. ?Transurethral electrovaporization (TUVP). This procedure uses electrodes to destroy and remove a small amount of prostate tissue. ?Prostatic urethral lift. This procedure inserts an implant to push the lobes of the prostate away from the urethra. Follow these instructions at home: Take uyhk-[id number]-[id number] and prescription medicines only as told by your health care provider. Monitor your symptoms for any changes. Contact your health care provider with any changes. Avoid drinking large amounts of liquid before going to bed or out in public. Avoid or reduce how much caffeine or alcohol you drink. Give yourself time when you urinate. Keep all follow-up visits as told by your health care provider. This is important. Contact a health care provider if: You have unexplained back pain. Your symptoms do not get better with treatment. You develop side effects from the medicine you are taking. Your urine becomes very dark or has a bad smell. Your lower abdomen becomes distended and you have trouble passing your urine. Get help right away if: You have a fever or chills. You suddenly cannot urinate. You feel lightheaded, or very dizzy, or you faint. There are large amounts of blood or clots in the urine. Your urinary problems become hard to manage. You develop moderate to severe low back or flank pain. The flank is the side of your body between the ribs and the hip. These symptoms may represent a serious problem that is an emergency. Do not wait to see if the symptoms will go away. Get medical help right away. Call your local emergency services (911 in the [place] Do not drive yourself to the hospital. Summary Benign prostatic hyperplasia (BPH) is an enlarged prostate that is caused by the normal aging process and not by cancer. An enlarged prostate can press on the urethra. This can make it hard to pass urine. This condition is part of a normal aging process and is more likely to develop in men over the age of 50 years. Get help right away if you suddenly cannot urinate. This information is not intended to replace advice given to you by your health care provider. Make sure you discuss any questions you have with your health care provider. Document Released: 08/03/2006 Document Revised: 06/28/2019 Document Reviewed: 09/07/2017 [employer] Patient Education 2020 [employer]. Follow Up Care 07/01/2022 09:13:44 With:Diego RICKS, OUSMANE Bell, URO Address: When: Unknown Comments:Schedule cysto [facility] 11-12-2022 Progress note Author [facility] June 28, 2022 2:07pm Note Date/Time June 27, 2022 10:23am [facility] at [address] [address] Hem/Onc Follow Up Note - OP Signed Patient: Patsy Mills MR#: [id number] : 1945 Acct:[id number] Age/Sex: 77 / M Type: REG RCR Copies to: MD Helen Jaramillo MD~ Subjective Date/Time of Service: Date of Service: 06/27/2022 Time of Service: 10:21 Chief Complaint: Patient is here today for a 5 week follow up visit for light chain nehpropathy d/t multiple myeloma and go over labs HPI: 06/27/2022: Patsy is here for followup to review Clonoseq testing that was still pending at last visit. He continues to have increased urine frequency andincontinence after prior Urolift surgery. He was given Mybetriq to manage urinefrequency but notes this was not well tolerated due to mouth sores, diarrhea, and headaches which improved after stopping the medication. No other concerningsymptoms although he has persistent fatigue and is frustrated with his quality of life. His Clonoseq returned at zero clonal cells. We noted since he has no evidence of disease in marrow and decreased quality of life, he will hold Revlimid x 1 month to see if symptoms improve. One month followup with [facility] to review labs and symptoms. He also has followup with Dr. Hall in one week and will inform him of plan for one month off Revlimid. He also may seek Urology second opinion. Moderate complexity 30 minute followup visit. 05/23/2022: Noted to have Urolift procedure at [facility] last month, noted increased post-op pain that is slowly improving. On 05/16 he had injection of retinal hemorrhages for diabetic neuropathy. His bone marrow aspiration and biopsy for annual MRD testing was performed in interventional radiology on 04/30/2022, but specimen was not sent for Clonoseq MRD testing. No other new symptoms--12/2021: last M-spike negative and normal kappa/lambda light chain ratio. Bone marrow biopsy does not show morphologic evidence of myeloma but patient consented to bone marrow aspirate alone in clinic today to send for MRD testing. Other labs are stable--we will followup results in one month with repeat myeloma labs (serum protein electrophoresis, serum immunofixation, quantitative immunoglobulins, and kappa/lambda light chain ratio. Patient and agree with this plan over this low complexity 25 minute visit and 15 additional minutes for bone marrow aspiration. 02/05/2022: Patsy and his present for 1 month follow-up. No new symptoms--persistent stable fatigue. He underwent radiofrequency ablation of kidney stone by Dr. Seals at [place] on 01/14/2022 without complications. Sent off Revlimid since December 12, 2021 due to cytopenias. Otherwise no changes in clinical history. He is due for his second shingles shot and since he is otherwise stable with no recent infections he can receive his second dose. He did require transfusion of 2 units packed red blood cells for hemoglobin 6.7 on 01/23/2022. Hemoglobin has now improved to normal methylmalonic acid and homocystine, elevated iron saturation 72% and ferritin elevated to 663. Erythropoietin level was also elevated to 547.7 so he is not a candidate for erythrocyte stimulating agents. At this time I will continue to hold Revlimid since he has no evidence of M spike on his most recent serum protein electrophoresis or serum or urine immunofixation. Malden/lambda light chain ratio continues to decline to now 1.31 (normal). Due to his recent anemia we will hold his Revlimid another month and repeat his CBC in 1 month. If hemoglobin improving, we may consider resuming his maintenance Revlimid to 5 mg every other day. Next follow- up in April 2022 for repeat bone marrow biopsyin interventional radiology for specimen to be sent for minimal residual diseasetesting. I will follow-up with him 3 weeks thereafter for review of symptoms and bone marrow results, sooner as needed. 01/02/2022: Patsy and his are here for 3 month followup visit. She raised most of the concerns regarding worsening fatigue. He has been off He underwent a painful bone marrow by [facility] with Dr. Hall with nondiagnostic specimen. Dr. Hall recommended repeat bone marrow in the fall with MRD testing (we will set up with IR). I reviewed his f/u monoclonal gammopathy testing showing asymmetric gamma but no M-spike. Normal kappa/lambda light chain ratio. Hemoglobin declined to 8--elevated iron saturation and ferritin. I will check methylmalonic acid and homocysteine, erythropoietin, and may consider adding erythropoietin. Continue f/u with Dr. Crain. 10/03/2021: Patsy is here for 4-month follow-up of light chain myeloma. His brought me a thorough list of his recent hospitalizations since early August 2021. Recurrent weakness and dizziness as per chief complaint. --August 20 he was treated for UTI at [facility] ER, thenadmitted August 24 to [place] with dehydration and urosepsis with discharge August 29. 09/05/[address] Heath for continued antibiotics with Bactrim DS. Urine also returned positive for candidiasis and he was treated with fluconazole daily. He stopped his hydralazine and Lasix. --09/17/2021: He returned for labs and skeletal survey at [facility] and his potassium on blood work was markedly elevated. We contacted him and advised ER evaluation at [facility]. His potassium returned at 7.3 and he required hydration, calcium gluconate, insulin with bicarb, and had a negative Covid test. He was admitted and had unremarkable renal ultrasound, transfused 1 unit of blood for hemoglobin 7.3. Potassium and creatinine normalized and he was discharged home on 09/19/2021. Since that time he has had some improvement of energy but still has poor appetite and mild weakness. No fever, chills, or sweats. I will have him follow-up with nephrology and Dr. Heath for management of his potassium and creatinine. He denies any abdominal pain or bone pain and is otherwise compliant with maintenance Revlimid 5 mg daily. --Labs from 09/16/2021 did show mild elevation in creatinine 3.9 likely due to his electrolyte disturbances. His creatinine had increased from 1.29-2.11 likely due to dehydration. Serum M spike was not observed, but urine M spike was detected at 6.9. Urine immunofixation did not show monoclonal population and his urine M spike is likely due to his recent urinary infections. Serum kappa and lambda light chains were both elevated to 62.1 and 38.7 respectively with normal kappa/lambda ratio 1.6. Skeletal survey did not show any lytic lesions. At this time I would not change his maintenance Revlimid. He is due for follow-up with Dr. Hall at [facility] hematology in late October for 1 year follow-up bone marrow biopsy for MRD status. His next follow-up with me will be in 3 months or sooner as needed. 05/30/2021: 3 month followup--still no new symptoms. We discussed coronavirus booster, then flu vaccine, then will have post transplant vaccines in June. He is off gabapentin and rash resolved. Tolerates Revlimid 5mg daily. Stable kappa/lambda ratio--no M-spike serum and urine testing. Quant immunoglobulins normal. I will f/u with myeloma labs in 3 months--CBC, CMP, SPEP, quant IGs, kappa/lambda light chains and beta2 microglobulin. He and his are in agreement with this plan. Low complexity visit. 02/27/2021: Here for 3-month follow-up, prior autologous stem cell transplant 07/25/2020. No limitations of daily activities--normal appetite, denies pain. Previously noted increased rash over bilateral antecubital areas, chest and back. He is titrating off gabapentin due to improving neuropathy and rash mildly better. Still on Revlimid 5mg daily. Uses benadryl prn for pruritus andrash. Will contact for post transplant vaccines. Stable kappa/lambda ratio--no M-spike serum and urine testing. Quant immunoglobulins normal. I will f/u with myeloma labs in 3 months--CBC, CMP, SPEP, quant IGs, kappa/lambda light chains and beta2 microglobulin. He and his are in agreement with this plan. 11/26/2020: Patsy is here for followup after D86 bone marrow biopsy at [facility] on 10/18/2020. No evidence of MRD--0.5% plasma cells andno clonal plasma cells suggestive of residual myeloma. Tolerating maintenance Revlimid 5mg daily well. No bone pain and normal renal function--Dr. Vincent hasreleased for annual nephrology followup. He is fully vaccinated for [id number] and I contacted Dr. Hall for coordination of post transplant vaccines. Stable neuropathy with gabapentin escalated to 400mg am, 300mg midday, 400mg pm. Continues followup with palliative medicine. He has phone f/u with Dr. Hall later this week. I will f/u with myeloma labs in 3 months--CBC, CMP, SPEP, quant IGs, kappa/lambda light chains and beta2 microglobulin. He and his are in agreement with this plan. 10/15/2020: Patsy is here with his for transfer of care after Melphalan 100mg/m2 autologous stem cell transplant D0 = 07/25/2021. He is now D+83 and oneweek ago, he saw Dr. Hall for survivorship visit. We reviewed his post transplant course and prior infections have now resolved. Blood counts have recovered and renal function at prior baseline. He has persistent neuropathy ongabapentin 200mg am, 100mg noon, 200mg pm. I'm setting him up for palliative consultation (previously followed by WILFREDO Olivia). He has a followup bone marrow biopsy scheduled with Dr. Hall in 3 days to document remission. I will discuss with him the plan after bone marrow biopsy--I briefly discussed Revlimidmaintenance with Mr. Milsl and his . I will contact patient after bone marrow results to confirm plan with Dr. Hall and f/u with him in about 6 weeks with myeloma labs. 07/02/2020: Patsy has completed all of his pretransplant evaluation at [facility] including cardiology visit 11 9 which showed ejection fraction 60%. I have contacted Dr. Hall who noted that today will be his last day of Velcade and we will hold his daratumumab. He was to have a COVID-19 teston 07/11/2020 for planned stem cell collection 07/17 and transplant on 07/23. I clarified with the staff at [facility] this this may be performed at [facility] and forwarded to them. 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 His pain mainly in hips is about 3 out of 10 and controlled with Percocet. His next follow-up with me jaime be in about 4 months when he is post transplant although I am happy to see him sooner if new issues arise in his post transplant course that need to bemanaged closer to home. His most recent labs reveal improving hemoglobin (11.5), stable renal function (creatinine 1.35), normal calcium, and appropriateresponse of kappa light chain to now normal 18 with K/L ratio 2.02. 06/04/2020: Met with Dr. Hall on 05/24/2020 to discuss planning for high-dose chemotherapy peripheral blood stem cell transplant. He has now hemodialysis independent after daratumumab, dexamethasone, and Velcade with addition of Revlimid. Today he reports that he has had increased neuropathy symptoms in hisbilateral hands and feet with mild interference with activity (grade 2). We discussed a 25% dose reduction of Velcade on day 1, day 4, day 8, day 11 with current cycle of DVdR. He has some leg cramps at night, with normal magnesium, but low iron saturation noted--will start daily iron for symptoms. Otherwise heis tolerating therapy well and creatinine is now normal. He was given educationfor the transplant course and he is scheduled in late June after Thanksgiving to proceed with stem cell collection and transplant. I will communicate with Dr. Hall regarding end of therapy and in 1 month I will see him with follow-up myeloma studies. No other new concerns today. 05/07/2020: Patsy is here for 1 month follow-up. Outpatient hemodialysis was stopped after 04/24/2020 due to excellent response. He was evaluated by Dr. Small at [facility] on 04/26/2020. Angel and his note that Dr. Hall felt that he was physiologically about 8 years younger than his chronologic age and would likely be transplant eligible if pretransplant work-updeems this feasible. He recommended continuing current daratumumab and Velcade with low-dose Revlimid. He will reevaluate patient in 1 month and likely plan admission for stem cell collection, then high-dose chemotherapy/autologous stem cell transplantation in June or July. The patient's was concerned that she did not understand much of the pretransplant teaching and I explained to her and Don the pathophysiology of plasma cells, light chains, his improving trend of renal function, goal of 90% kappa/lambda ratio reduction prior to transplant. We also refilled Revlimid 5 mg every other day, weekly vitamin D, and I am giving him a trial of tramadol 50 mg every 12 hours as Tylenol is not effective for his pain and we are avoiding NSAIDs and additional aspirin. He otherwise has no toxicities of chemotherapy. He sees Dr. Heath for follow-up tomorrow and maintains insulin with stabilization of his blood sugars following with diabetes management clinic. I will see him in follow-up with myeloma labs in 1 month plan end of therapy prior to transplant. 04/09/2020: Here for one month f/u with his . He continues outpatient hemodialysis on Thursday//Saturdays. He notes fatigue, but generalized edema remarkably improved with no significant pain. I reviewed his M-spike, IgGand kappa light chains with K/L ratio that has remarkably improved (>90% reduction past month). Malden light chains decreased from 12,000 to 42. Only concern is significant hyperglycemia with dexamethasone. 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 I will coordinate evaluation by Dr. Quique Hall for HDC/autologous stem cell transplantevaluation and hold on adding Revlimid since significant response of light chains noted. I contacted Dr. Rahman of nephrology to consider reducing hemodialysis days to twice weekly. I will send myeloma labs in about 4 weeks, have him see Dr. Hall and f/u with me the following week to review plan and determine whether plan for HDC/stem cell transplant. 03/14/2020: Patient presents with his today after initiating both outpatienthemodialysis on Thursday//Saturdays and initial cycle of daratumumab, bortezomib, dexamethasone with potential addition of Revlimid after 1 month if less than optimal response. He received his first cycle of combination chemotherapy 03/12/2020. --Patient tolerated initial daratumumab infusion reasonably well with brief infusion reaction (dizziness and mild wheezing) that was treated with diphenhydramine, steroids, albuterol, and Demerol for rigors. He completed remaining infusion in an outpatient bed on the inpatient [facility] Thursday and we anticipate further weekly daratumumab infusions as an outpatient. --Patient was seen at dialysis today and noted to have hemoglobin 6.8. He will receive 1 unit of packed red blood cells prior to Velcade today for scheduled tomorrow. His was unable to be present at the hospital at time of diagnosis and his initial bone marrow biopsy was performed on 03/08/2020. She requests evaluation with him today for extensive questions regarding his care. She reported her session and requested a copy of this progress note following our visit today. 1. She asked if all the tests at the hospital returned. We discussed the teststhat are used to follow-up myeloma including his elevated IgG, elevated free kappa light chains, and elevated M spike. We discussed in detail the pathophysiology of myeloma but she felt very anxious and overwhelmed and I reassured her that we will readdress this at further follow-up visits. 2. Patient had a metastatic bone survey showing no areas of lytic disease or pathologic fractures. We discussed CRAB criteria for multiple myeloma diagnosis and that he meets criteria of R renal and A anemia, but not elevated calcium or bone disease (C and B). She specifically asked is stage of multiple myeloma andwe noted that he still will require beta-2 glycoprotein (ISS) but is most consistent with stage III. We are still awaiting his chromosomal abnormalities by fluorescence in situ hybridization and will readdress at next follow-up visitwith his final bone marrow biopsy results (this study was only performed 03/08/2020). 3. She wanted to know if his testing showed cancer elsewhere. We discussed that since metastatic bone survey showed more lytic areas I do not feel that F-18 PET is high priority but this may be ordered at some point to assess for any asymptomatic bony metastatic disease. 4. He has recently had elevated blood sugars and does not have a history of diabetes, but we discussed that with weekly steroids he should likely have additional insulin on his steroid days. I offered that this could be managed byhis primary physician Dr. Heath and he could be referred for diabetes management clinic. 5. We reiterated multiple times that his schedule may be variable. He will typically have a long infusion on Mondays with daratumumab but initially he willpresent twice weekly for Velcade injection on Mondays and . This will change during the course of his therapy and he should refer to his calendar. 6. We discussed not taking additional vitamins unless approved by nephrology. I also discussed potentially adding Revlimid and we will address at future visits if this is needed based on his follow-up labs ordered 04/02/2020. His medications may be filled either locally or with his prescription plan, but manyof these will be ordered by nephrology. He is to continue vitamin D2 as recommended by nephrology. Blood pressure medications will be regulated by primary care and nephrology. 7. We discussed concerning side effects, most commonly hyperglycemia, insomnia,risk of thrombosis (recently was diagnosed with left superficial thrombosis of the left upper extremity and additional heparin is given with his dialysis), andneuropathy with Velcade. Patients do not tend to have significant nausea or possible appetite (effects of dexamethasone increase his appetite). I cannot recommend medical marijuana and would discuss this with his pre coder whetherthis would interfere with dialysis. We will also follow closely for cytopenias and reviewed infectious precautions. He has a son from [place] who plans to visit on Thursday and we discussed COVID-19 testing appropriate social isolation protocols. 8. We discussed whether he was eligible for transplant and this will be evaluated based on his response and overall health in likely 3 to 4 months afterinitiation of therapy. We did not discuss autologous stem cell transplant in detail. We did discuss that although this is not curative therapy, many patients are controlled with medication over longer periods of time (often 5 to 6 years) with appropriate therapy. It is an aggressive cancer due to its significant infectious risk and association with renal failure. 9. Exercise may be performed as tolerated but should be done in moderation and likely we should wait a few weeks for more significant exercise given his recentdialysis and initiation of chemotherapy. I did not specifically address his diet but he may address this with our [facility] nutrition team. He will also receivechemotherapy class with our nurses in the infusion center. PRELIMINARY HISTORY (from initial consult 03/08/2020): This is a now 77-year-old male who was transferred from [place] emergency room by [facility] due to critical potassium 8.7 with elevated creatinine 11.2 and BUN 82 on 03/04/2020. We do not have any recent blood work for comparison but hehad normal creatinine in 2011. He was urgently treated for his hyperkalemia anddialysis was arranged emergently by nephrology team. He has now stabilized on dialysis and had extensive work-up for etiology of his acute renal failure with severe anemia felt to be due to anemia of renal insufficiency. Iron studies returned normal with ferritin 160, but B12 low at 84 and folate low normal at 5.2. He is receiving appropriate B12 repletion. The patient reports that he has had a prolonged period of fatigue up to a year and has decreased appetite with subjective weight loss. He denies any significant bone pain other than pain in his right shoulder and has no prior falls or recurrent back pain. He had a shoulder film showing labral pathology of the joint but no fracture or dislocation. Myeloma labs were sent showing M spike 3.6 g/dL with serum immunofixation showing IgG kappa light chain specificity. Serum IgG markedly elevated at 5312 and free kappa light chain 12,649.9 with normal free lambda light chain 11.94 free kappa/lambda ratio 1063. Hepatitis A, B, and C serologies were all negative and COVID-19 screening was negative. LORE, c-ANCA, p-ANCA, anti-GBM, and antimyeloperoxidase were all negative. Clinically the patient has multiple myeloma and I explained that we needed to proceed with bone marrow aspiration and biopsy to provide baseline for diagnosis and to expedite chemotherapy with an aggressive regimen to reduce his light chains. I will review information with him at noon today around the time of his bone marrow biopsy for combinationdaratumumab 16 mg/kg IV weekly, bortezomib 1.3 mg/kg subcu twice weekly, dexamethasone 40 mg weekly, and Revlimid 25 mg p.o. daily days 1 through 14 of each 21-day cycle. Revlimid will be ordered through a special pharmacy. We will schedule his infusions as an outpatient early next week on his nondialysis days. Written literature for these medications will be provided and he may signinformed consent so that we may order this regimen as an outpatient. The patient's is not with him today but has been treated by me for breast cancer in the past and had multiple questions. We would like to arrange a time for her to be available to ask questions and be present for chemo consent, possibly around noon today. This will need to be coordinated with nursing staffdue to [facility]- visitor restriction policy. - Summary of Therapies Summary of Therapies: Cycle 1 day 1 03/12/2020: Daratumumab 16 mg/kg IV weekly, bortezomib 1.3 mg/kg subcu twice weekly, dexamethasone 40 mg weekly. 04/09/2020: Under direction of Dr. Hall, in early April we added Revlimid 5 mg every other day of each 21-day cycle with cycle 2 due to excellent response of kappa light chains. 04/26/2020: Malignant hematology eval for possible high-dose chemotherapy/autologous stem cell transplant. He was able to stop dialysis 04/24/2020. Given Velcade only (hold daratumumab) on 07/02/2020. 07/25/2020: Melphalan 100mg/m2 IV day 0 autologous stem cell transplant 07/25/2020at [facility]. 11/26/2020: Follow-up bone marrow aspiration and biopsy 10/18/2020 for MRD evaluation shows hypocellular marrow with 0.5% plasma cells, no clonal population by flow cytometry but 0.03% kappa light chain skewing. Started Revlimid 5 mg daily for maintenance therapy early October 2020. Nondiagnostic bone marrow for MRD in spring 2021 at . Planned follow-up bone marrow biopsy for MRD at [facility] fall 2021. -- 02/05/2022: Revlimid on hold since 12/12/2021 for cytopenias. Continue to follow off Revlimid 1 more month, then with improved anemia in 02/2022, we resumed 5 mg every other day maintenance. -- 06/27/2022: Holding Revlimid 5mg every other day one month due to undetectable clonal cells on Clonoseq, increased fatigue/urinary symptoms. ROS Details: All systems reviewed & no additional complaints except as documented Subjective/ROS - Narrative: CONSTITUTIONAL: Mild increased chronic fatigue since HD Melphalan/ASCT 07/2020, negative for fever or night sweats. Post-transplant infections as per HPI, now resolved. HEAD AND NECK: Stable vision since control of his diabetes mellitus. Negative for changes in hearing. Negative for mouth ulcers, nasal congestion and nasal drainage. PULMONARY: Negative for chest pain, cough and dyspnea. CARDIOVASCULAR: Negative for claudication and irregular heartbeat/palpitations. Resolved edema since diagnosis, now off dialysis. GASTROINTESTINAL: Negative for abdominal pain, constipation, diarrhea, nausea orvomiting. Improved appetite and 20 kg weight loss after starting dialysis, chemotherapy, and transplant for light chain nephropathy. 11/2020--returned to baseline weight pretransplant. GENITOURINARY: Negative for dysuria and hematuria. Improved urinary output, diagnosed in February 2020 with renal failure requiring dialysis--off dialysis 04/24/2020. Prior nephrolithiasis previously followed by Dr. Seals--recent ESWL 01/14/2022 at [place]. ENDOCRINE: Negative for cold intolerance and heat intolerance. Improvement of prior hyperglycemia with home blood sugars in the 100-200s on supplemental insulin glargine. CENTRAL NERVOUS SYSTEM: Negative for gait disturbance and headache. No focal neurologic deficits or history of stroke. 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 PSYCHIATRIC: Negative for anxiety or depression. DERMATOLOGICAL: Positive for pruritus and rash as per HPI. Negative for suspicious skin lesions. MUSCULOSKELETAL: Resolved back pain and and thigh pain. Resolved leg cramps, improved neuropathy. No longer on ferrous sulfate post transplant. HEMATOLOGICAL: Negative for bleeding and easy bruising. Transfusion 2 units packed red blood cells 01/23/2022 for hemoglobin 6.7. Only other transfusion was 2 units red cells October 2021. Positive for left basilic vein thrombus on Doppler ultrasound 03/12/2020--no longer requires anticoagulation. Revlimid decreased to 5mg every other day--holding 06/27/2022 for one month. ALLERGY: Negative for environmental allergies and food allergies. PMF - History Attestation statement: The following information was validated with the patient. Source: Old Records Reviewed - Medical History Medical History: Medical History (Last Reviewed 06/28/22 @ 13:47 by Brook Huddleston MD) Apnea Arthritis Diabetes mellitus, type 2 Hyperlipidemia Hypertension Kidney stones Multiple myeloma Skin cancer - Family History Family History: Family History (Last Reviewed 06/28/22 @ 13:47 by Brook Huddleston MD) Sister Myocardial infarct Mother Myocardial infarct Father Skin cancer - Social History Smoking Status: Former smoker Tobacco Type: cigarettes Substance Use Type: None Home Medications & Allergies Allergies gabapentin Allergy (Verified 06/27/22 10:16) Rash mirabegron [From Myrbetriq] Adverse Reaction (Verified 06/27/22 10:16) Diarrhea Home Medications famotidine 20 mg tablet 20 mg PO DAILY #30 tabs 03/10/20 [Rx Confirmed 06/27/22] insulin glargine 100 unit/mL (3 mL) subcutaneous pen (Lantus Solostar U-100 Insulin) 25 unit subcut DAILY 04/27/20 [History Confirmed 06/27/22] insulin lispro 100 unit/mL subcutaneous pen (Humalog KwikPen (U-100) Insulin) 6 - 16 unit subcut DIRECTED 04/27/20 [History Confirmed 06/27/22] atorvastatin 20 mg tablet 20 mg PO DAILY 10/15/20 [History Confirmed 06/27/22] cholecalciferol (vitamin D3) 50 mcg (2,000 unit) capsule (Vitamin D3) 50 mcg PO DAILY 10/15/20 [History Confirmed 06/27/22] aspirin 81 mg tablet,delayed release 81 mg PO DAILY 11/26/20 [History Confirmed 06/27/22] metformin 500 mg tablet 500 mg PO BID 11/26/20 [History Confirmed 06/27/22] acyclovir 400 mg tablet 400 mg PO BID 60 days #120 tabs 12/26/21 [Rx Confirmed 06/27/22] terazosin 10 mg capsule 10 mg PO DAILY 02/07/22 [History Confirmed 06/27/22] tamsulosin 0.4 mg capsule 0.4 mg PO BID 04/30/22 [History Confirmed 06/27/22] potassium chloride 20 mEq tablet,extended release 20 meq PO DAILY #90 tabs 06/23/22 [Rx Confirmed 06/27/22] lenalidomide 5 mg capsule (Revlimid) See Rx Instructions .Route .COMPLEX #14 caps 06/27/22 [Rx] Objective - Height/Weight Height/Weight: Height 5 ft 10 in Weight 89.811 kg BSA for Today's Weight 2.10 - Vital Signs Vital Signs: 06/27/22 10:17 Temperature 97.8 F Pulse Rate [Monitor] 52 L Respiratory Rate 16 Blood Pressure [Right Arm] 140/82 02 Sat by Pulse Oximetry 98 Oxygen Delivery Method Room Air - Pain Right Hip Pain Intensity: 5 Generalized Pain Intensity: 1 Left Upper Arm Pain Intensity: 4 Physical Exam Narrative: CONSTITUTIONAL: The patient is in no acute distress. Stable fatigue but can ambulate independently. HEAD / FACE: Normocephalic. EYES: Pupils are equal and reactive to light. Conjunctivae and lids are benign in appearance. Ocular movement intact. EARS: Hearing grossly intact. Full exam deferred--see exam from visit 05/23/2022 NOSE / MOUTH / THROAT: Nose, mouth, tongue and oropharynx are benign in appearance. No signs of inflammation. NECK / THYROID: Neck is supple. Thyroid is symmetrical, without thyromegaly, masses or palpable nodules. LYMPHATIC: No palpable cervical, supraclavicular, axillary, or inguinal adenopathy. RESPIRATORY: Normal to inspection. Lungs clear to auscultation and percussion. No wheezing, rales, rhonchi or rubs. Normal effort. CARDIOVASCULAR: Regular rate and rhythm. No murmurs, gallops, or rubs. VASCULAR: Carotid, radial, femoral and pedal pulses present bilaterally. No bruits. ABDOMEN: Bowel sounds normoactive. Soft, nontender and non-distended. No hepatosplenomegaly. No masses. GENITOURINARY: No CVA tenderness. No suprapubic fullness or tenderness. No groinadenopathy. No evidence of hernias. INTEGUMENTARY: The skin is unremarkable. Resolved antecubital/chest rashes. No suspicious lesions BACK / SPINE: The back is nontender. No step-off deformity. No CVA tenderness. MUSCULOSKELETAL: Normal musculature, no joint deformities or abnormalities, normal range of motion for all four extremities. EXTREMITIES: No longer has bilateral lower extremity edema; no cyanosis or clubbing. No Vitor sign. NEUROLOGICAL: Alert and oriented. Cranial nerves intact. No gross motor or sensory deficits. PSYCHIATRIC: No anxiety or evidence of depression. - ECOG Performance Status ECOG Score: 1 Results - Labs Labs: Diagram of Most Recent CBC and CMP 06/13/22 11:38 06/13/22 11:30 - Impressions No new imaging for review. 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 He had marked elevation in IgG kappa on initial laboratory work-up for renal failure in February 2020. He has remained hemodynamically stable and I discussed in detail with the patient the pathophysiology of multiple myeloma and associated injury to kidneys, persistentanemia, bone disease, and potential hypercalcemia (we do not see hypercalcemia in this patient). He consented to inpatient bone marrow biopsy 03/08/2020 which was diagnostic for multiple myeloma--70% plasma cells without amyloid depositionidentified in small marrow specimen. Normal baseline skeletal survey. I reviewed pathophysiology of myeloma, results of bone marrow biopsy, skeletal survey, and myeloma labs with the patient and his . Patsy consented to begin first cycle Daratumumab, Velcade, and dexamethasone on03/12/2020--other than infusion reaction from first Daratumumab, improved with symptomatic therapy. I reviewed his case with Dr. Quique Hall of Malignant Hematology--added Revlimid 5mg qod following significant reduction of light chains in early April 2020. 05/07/2020: As per HPI, Angel and his met with Dr. Hall 04/26/2020 with preparation for likely high-dose chemotherapy/autologous peripheral stem cell transplant if he meets criteria based on cardiopulmonary work-up. He has had greater than 90%. The patient was able to discontinue hemodialysis on 04/24/2020 and has not had any recurrence of edema with now improved renal function, creatinine clearance now 53. --I will continue current therapy with further evaluation by Dr. Hall in 1 month for planning his HDC/autologous stem cell transplant. We will send repeatmyeloma labs (SPEP, IgG, kappa/lambda light chains) in 4 weeks with f/u visit with me the following week to review results as well as evaluation with Dr. Hall for possible stem cell transplant. 06/04/2020: Tolerating chemotherapy well other than increasing neuropathy of hands and feet. Dose reduced Velcade by 25% next cycle. Added daily ferrous sulfate. --He was referred to diabetes management clinic and sees Dr. Heath with regularfollow-up by Dr. Rahman since he is off dialysis. Diabetes control improved. 07/02/2020: Last dose of Velcade today. Neuropathy is stable and pain is well controlled. He will have COVID-19 test on 07/11/2020 for planned admission for stem cell collection on 07/17/2020 then high-dose melphalan followed by peripheral blood stem cell transplant day 0 scheduled 07/23/2020. His next follow-up with me will be in about 4 months after he is completed day 100 transplant follow-up. He may return sooner as needed. 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 Melphalan 100mg/m2 + ASCT Day 0 07/25/2020. 11/26/2020: Followup of [facility] end of therapy bone marrow biopsy 10/18/2020--no minimal residual disease. Started Revlimid maintenance 5mg daily in early October2020. 02/27/2021: No new symptoms other than rash. Slow improvement of neuropathy--titrating off gabapentin with palliative medicine. Benadryl for rash. Continue Revlimid 5mg daily. He will be due for first post transplant vaccines sooner--will check schedule with . 05/30/2021: Rash and neuropathy improved. Tolerating Revlimid well. Discussedcoronavirus booster and influenza vaccines. Post transplant vaccines due in 07/2021. No M-spike and normal kappa/lambda ratio. 10/03/2021: Multiple admissions for hyperkalemia, renal insufficiency due to dehydration, anemia requiring transfusion. Still feels weak and dizzy and his electrolyte disorders are being managed by primary care. No detectable M spike's and kappa/lambda light chain ratio is normal with elevated levels of both likely due to recent infections. Skeletal survey without new lytic lesions. He is due for MRD bone marrow follow-up with Dr. Hall next month. For now continue Revlimid 5 mg daily. 01/02/2022: Patient presents with his who is concerned with increasing fatigue. He has had a decline in his hemoglobin to 8 although his renal function is actually improved from prior values with creatinine clearance of 50. We sent serum iron profile showing increased iron stores with iron saturation 72% and ferritin 663. Homocystine was normal methylmalonic acid is pending. [place] also send an erythropoietin level to see if there may be a benefit to adding erythropoietin for anemia of chronic kidney disease. He will continue to follow with Dr. Meade. He still has no M spike on serum protein electrophoresis and normal kappa/lambda light chain ratio. MRD testing at [facility] was nondiagnostic and he will have repeat bone marrow biopsy here with me to send MRD testing. Next followup with me in 3 months for exam and f/u myeloma labs. We will coordinate his bone marrow biopsy at that time. He will continue follow-up by nephrology for chronic kidney disease although his prior hyperkalemia has improved on recent labs. May return sooner if new issues arise. 02/05/2022: Patient has persistent fatigue although did require transfusion 2 weeks ago for hemoglobin 7.6. Iron studies show increased iron saturation and ferritin with normal methylmalonic acid and homocystine. Erythropoietin level is elevated therefore he does not have an indication for erythrocyte stimulating agents. Myelosuppression is likely due to prior Revlimid and I willkeep him off therapy for another 1 month with repeat CBC at that time. If anemia is improving I will resume Revlimid at 5 mg every other day maintenance therapy. He will be scheduled for MRD bone marrow at [place] [facility] in April 2022, then follow-up with me with review of myeloma labs 3 months after this procedure. He still has undetectablemonoclonal spike and normal kappa/lambda light chain ratio on most recent labs. Renal function is improving since ESWL at [place] in late December. 05/23/2022: No new issues, bone marrow biopsy 04/30/2022 in IR shows no morphologic evidence of myeloma, but specimen was not sent for MRD testing. Patient agreed to bone marrow aspirate only today performed for MRD testing and documented in a separate procedure note. Normal trilineage hematopoiesis on bone marrow biopsy with increased iron stores. Revlimid now down to 5mg every other day. Will review MRD testing with myeloma labs (SPEP for monoclonal spike and kappa/lambda light chain ratio) at next followup in 4 weeks. Considerfurther Revlimid dose reduction if persistent anemia on CBC with CMP and if MRD negative. 06/27/2022: Notes increased fatigue and increased urine frequency despite recent Urolift procedure. Intolerant of Myrbetriq. Clonoseq reveals no clonal tumor cells. Recommend holding Revlimid 1 month for cytopenias and persistent fatigue due to quality of life concerns. He will followup with Dr. Hall next week to discuss holding Revlimid. If symptoms improved at one month followup with [facility], he will followup with me in one month with CBC, CMP, SPEP for monoclonal spike and kappa/lambda light chain ratio. This is a moderate complexity visit over 30 minutes for bone marrow Clonodeq review, address multiple comorbidities, and followup plan with patient and his . (2) Anemia of renal disease Hemoglobin has decreased to 8 and iron stores show increased iron saturation andferritin. He no longer takes supplemental iron but has ongoing B12 repletion 1 mg p.o. daily. Methylmalonic acid is pending to assess whether B12 repletion isadequate. We are also sending an erythropoietin level and if methylmalonic acidis normal, we will initiate erythropoietin therapy for anemia of chronic kidney disease. I will update nephrology if decision to add erythrocyte stimulating agent therapy. I will contact him with these results and coordinate repletion therapy. In addition the patient is on chronic Revlimid which it is myelosuppressive. -- Revlimid has was on hold 12/12/2021. He did require transfusion in early Januaryand had elevated iron saturation and ferritin, normal methylmalonic acid and homocystine, and increased erythropoietin level. We resumed Revlimid in early February. MRD bone marrow aspirate sent today--no dysplasia on bone marrow biopsy. For now may continue Revlimid 5mg every other day and consider further dose reduction if persistent anemia with MRD negative on f/u in one month. --As noted above we are holding Revlimid one month due to quality of life concerns and cytopenias. If improved symptoms at one month followup off Revlimid, we may continue to hold Revlimid and follow every 3 months. (3) History of hemodialysis Initiated inpatient hemodialysis 02/2020, then transitioned to outpatient hemodialysis 3 times weekly Thursday//Thursday schedule. Chemotherapy given Thursday/. 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 He was actually able to stop dialysis within 2 months with the last session 04/24/2020 as noted above. Now 23 months after Melphalan 100mg/m2 + autologous PBSCT given his significant response to initial myeloma directed therapy. Continued f/u with nephrology for stage III chronic kidney disease/resolved hyperkalemia. (4) Steroid-induced diabetes mellitus Qualifiers: Encounter type: subsequent encounter Qualified Code(s): E09.9 - Drug or chemical induced diabetes mellitus without complications; T38.0X5D - Adverse effect of glucocorticoids and synthetic analogues, subsequent encounter Patsy had an excellent response of light chains but was noted to have significant hyperglycemia 300-500 fasting blood sugars. He was referred to diabetes management clinic with addition of insulin therapy that has significantly improved control of his blood sugars. Patient also had remarked on some blurred vision that improved with control of blood sugars. Continue follow-up of blood sugars during admission for transplant in early July. 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 Resumed low dose metformin and titrating down insulin--directed by his primary physician. Recent injection (likely Avastin) for diabetic retinopathy. (5) B12 deficiency Patient was found to have B12 deficiency and was been placed on daily B12 prior to hospital discharge. We continued weekly IM B12 for 8 weeks with his myeloma regimen. Hemoglobin is improved on Aranesp and weekly B12, then changed to monthly maintenance therapy. He has not required further blood transfusions since 03/15/2020. Follow- up methylmalonic acid on 04/30/2020 was normal showing adequate replacement. He will continue monthly IM B12 and weekly vitamin D2 therapy 50,000 units orally for low 25 hydroxy vitamin D stores. He may take supplemental calcium once daily. -- Repeat methylmalonic acid normal and will continue current B12 dosing (6) Encounter for chemotherapy management Started cycle 1 day 1 03/12/2020: Daratumumab 16 mg/kg IV weekly, bortezomib 1.3 mg/kg subcu twice weekly, dexamethasone 40 mg weekly. We added Revlimid 5 mg every other day of each 21-day cycle with cycle 2 due to excellent reduction of kappa light chains (recommended by Dr. Hall malignanthematology). 06/04/2020: 25% DR Bortezomib (100% all other meds) due to worsening neuropathy. Last dose of bortezomib 07/02/2020 and holding daratumumab per request of Dr. Hall. 07/25/2020: Melphalan 100mg/m2 + autologous PBSCT 10/18/2020: Started Revlimid 5 mg daily maintenance after bone marrow biopsy negative for MRD. Repeat MRD bone marrow at [facility] in 3 months because spring 2021 bone marrow at was nondiagnostic. -- Revlimid on hold 12/12/2021 due to myelosuppression. Continue to hold at 02/05/2022 follow-up visit. Resumed 5mg po every other day around February 2022 and will continue for now pending MRD testing. 06/27/2022: Now holding Revlimid due to fatigue and undetectable Clonoseq. - Chemo Plan Chemo Plan (Dose, Rate, Freq): 09/25/2019: Melphalan 100mg/m2 + autologous PBSCT-->10/2020 Revlimid 5mg daily maintenance after MRD bone marrow biopsy. On hold 12/12/2021 due to anemia then 02/2022 resumed 5mg every other day. 06/27/2022: Revlimid on hold due to fatigue, cytopenias, and undetectable Clonoseq Goal of Treatment: Control - Time with Patient Time Spent with Patient (Follow Up Visit): 35 minutes - Review Clonoseq results and plan to hold Revlimid. Coordination of Care & Counseling Time: Greater than 50% of time spent with patient was for coordination of care (as documented) and [id number] counseling of patient and/or family. Dictated By: Brook Huddleston MD DD/ 1021 Signed By: <Electronically signed by MD Brook Huddleston> 06/28/22 [address] [facility] Work Phone: 1(465) 939-555210-19-2022 Hospital Discharge instructions Patient Education 06/04/2022 11:10:13 Acute Urinary Retention, Male, [id number] Acute Urinary Retention, Male Acute urinary retention means that you cannot pee (urinate) at all, or that you pee too little and your bladder is not emptied completely. If it is not treated, it can lead to kidney damage or other serious problems. Follow these instructions at home: Take [id number] and prescription medicines only as told by your doctor. Ask your doctor what medicines you should stay away from. Do not take any medicine unless your doctor says it is okay to do so. If you were sent home with a tube that drains the bladder (catheter), take care of it as told by your doctor. Drink enough fluid to keep your pee clear or pale yellow. If you were given an antibiotic, take it as told by your doctor. Do not stop taking the antibiotic even if you start to feel better. Do not use any products that contain nicotine or tobacco, such as cigarettes and e-cigarettes. If you need help quitting, ask your doctor. Watch for changes in your symptoms. Tell your doctor about them. If told, track changes in your blood pressure at home. Tell your doctor about them. Keep all follow-up visits as told by your doctor. This is important. Contact a doctor if: You have spasms or you leak pee when you have spasms. Get help right away if: You have chills or a fever. You have a tube that drains the bladder and: ?The tube stops draining pee. ?The tube falls out. You have blood in your pee. Summary Acute urinary retention means that you have problems peeing. It may mean that you cannot pee at all, or that you pee too little. If this condition is not treated, it can lead to kidney damage or other serious problems. If you were sent home with a tube that drains the bladder, take care of it as told by your doctor. Monitor any changes in your symptoms. Tell your doctor about any changes. This information is not intended to replace advice given to you by your health care provider. Make sure you discuss any questions you have with your health care provider. Document Released: 01/19/2009 Document Revised: 10/20/2019 Document Reviewed: 09/04/2017 [employer] Patient Education 2020 [employer]. Follow Up Care 05/05/2022 11:07:39 With:Diego RICKS, OUSMANE Bell, URO Address: [address], [place] [address]- [phone] When:08/04/2022 [facility] 10-08-2022 Progress note Author Brook Huddleston [facility] May 24, 2022 12:25pm Note Date/Time May 23, 2022 11 :15[facility] at [address] [address] Hem/Onc Follow Up Note - OP Signed Patient: Patsy Mills MR#: [id number] : 1945 Acct:[id number] Age/Sex: 77 / M Type: REG RCR Copies to: Helen Heath MD~ Subjective Date/Time of Service: Date of Service: 05/23/2022 Time of Service: 11:15 Chief Complaint: Patient is here today for a 4 month follow up visit for light chain nephropathy d/t multiple myeloma and go over bone marrow biopsy results HPI: 05/23/2022: Noted to have Urolift procedure at [facility] last month, noted increased post-op pain that is slowly improving. On 05/16 he had injection of retinal hemorrhages for diabetic neuropathy. His bone marrow aspiration and biopsy for annual MRD testing was performed in interventional radiology on 04/30/2022, but specimen was not sent for Clonoseq MRD testing. No other new symptoms--12/2021: last M-spike negative and normal kappa/lambda light chain ratio. Bone marrow biopsy does not show morphologic evidence of myeloma but patient consented to bone marrow aspirate alone in clinic today to send for MRD testing. Other labs are stable--we will followup results in one month with repeat myeloma labs (serum protein electrophoresis, serum immunofixation, quantitative immunoglobulins, and kappa/lambda light chain ratio. Patient and agree with this plan over this low complexity 25 minute visit and 15 additional minutes for bone marrow aspiration. 02/05/2022: Patsy and his present for 1 month follow-up. No new symptoms--persistent stable fatigue. He underwent radiofrequency ablation of kidney stone by Dr. Seals at [place] on 01/14/2022 without complications. Sent off Revlimid since December 12, 2021 due to cytopenias. Otherwise no changes in clinical history. He is due for his second shingles shot and since he is otherwise stable with no recent infections he can receive his second dose. He did require transfusion of 2 units packed red blood cells for hemoglobin 6.7 on 01/23/2022. Hemoglobin has now improved to normal methylmalonic acid and homocystine, elevated iron saturation 72% and ferritin elevated to 663. Erythropoietin level was also elevated to 547.7 so he is not a candidate for erythrocyte stimulating agents. At this time I will continue to hold Revlimid since he has no evidence of M spike on his most recent serum protein electrophoresis or serum or urine immunofixation. Malden/lambda light chain ratio continues to decline to now 1.31 (normal). Due to his recent anemia we will hold his Revlimid another month and repeat his CBC in 1 month. If hemoglobin improving, we may consider resuming his maintenance Revlimid to 5 mg every other day. Next follow- up in April 2022 for repeat bone marrow biopsyin interventional radiology for specimen to be sent for minimal residual diseasetesting. I will follow-up with him 3 weeks thereafter for review of symptoms and bone marrow results, sooner as needed. 01/02/2022: Patsy and his are here for 3 month followup visit. She raised most of the concerns regarding worsening fatigue. He has been off He underwent a painful bone marrow by [facility] with Dr. Hall with nondiagnostic specimen. Dr. Hall recommended repeat bone marrow in the fall with MRD testing (we will set up with IR). I reviewed his f/u monoclonal gammopathy testing showing asymmetric gamma but no M-spike. Normal kappa/lambda light chain ratio. Hemoglobin declined to 8--elevated iron saturation and ferritin. I will check methylmalonic acid and homocysteine, erythropoietin, and may consider adding erythropoietin. Continue f/u with Dr. Crain. 10/03/2021: Patsy is here for 4-month follow-up of light chain myeloma. His brought me a thorough list of his recent hospitalizations since early August 2021. Recurrent weakness and dizziness as per chief complaint. --August 20 he was treated for UTI at [facility] ER, thenadmitted August 24 to [place] with dehydration and urosepsis with discharge August 29. 09/05/[address] Heath for continued antibiotics with Bactrim DS. Urine also returned positive for candidiasis and he was treated with fluconazole daily. He stopped his hydralazine and Lasix. --09/17/2021: He returned for labs and skeletal survey at [facility] and his potassium on blood work was markedly elevated. We contacted him and advised ER evaluation at [facility]. His potassium returned at 7.3 and he required hydration, calcium gluconate, insulin with bicarb, and had a negative Covid test. He was admitted and had unremarkable renal ultrasound, transfused 1 unit of blood for hemoglobin 7.3. Potassium and creatinine normalized and he was discharged home on 09/19/2021. Since that time he has had some improvement of energy but still has poor appetite and mild weakness. No fever, chills, or sweats. I will have him follow-up with nephrology and Dr. Heath for management of his potassium and creatinine. He denies any abdominal pain or bone pain and is otherwise compliant with maintenance Revlimid 5 mg daily. --Labs from 09/16/2021 did show mild elevation in creatinine 3.9 likely due to his electrolyte disturbances. His creatinine had increased from 1.29-2.11 likely due to dehydration. Serum M spike was not observed, but urine M spike was detected at 6.9. Urine immunofixation did not show monoclonal population and his urine M spike is likely due to his recent urinary infections. Serum kappa and lambda light chains were both elevated to 62.1 and 38.7 respectively with normal kappa/lambda ratio 1.6. Skeletal survey did not show any lytic lesions. At this time I would not change his maintenance Revlimid. He is due for follow-up with Dr. Hall at [facility] hematology in late October for 1 year follow-up bone marrow biopsy for MRD status. His next follow-up with me will be in 3 months or sooner as needed. 05/30/2021: 3 month followup--still no new symptoms. We discussed coronavirus booster, then flu vaccine, then will have post transplant vaccines in June. He is off gabapentin and rash resolved. Tolerates Revlimid 5mg daily. Stable kappa/lambda ratio--no M-spike serum and urine testing. Quant immunoglobulins normal. I will f/u with myeloma labs in 3 months--CBC, CMP, SPEP, quant IGs, kappa/lambda light chains and beta2 microglobulin. He and his are in agreement with this plan. Low complexity visit. 02/27/2021: Here for 3-month follow-up, prior autologous stem cell transplant 07/25/2020. No limitations of daily activities--normal appetite, denies pain. Previously noted increased rash over bilateral antecubital areas, chest and back. He is titrating off gabapentin due to improving neuropathy and rash mildly better. Still on Revlimid 5mg daily. Uses benadryl prn for pruritus andrash. Will contact for post transplant vaccines. Stable kappa/lambda ratio--no M-spike serum and urine testing. Quant immunoglobulins normal. I will f/u with myeloma labs in 3 months--CBC, CMP, SPEP, quant IGs, kappa/lambda light chains and beta2 microglobulin. He and his are in agreement with this plan. 11/26/2020: Patsy is here for followup after D86 bone marrow biopsy at [facility] on 10/18/2020. No evidence of MRD--0.5% plasma cells andno clonal plasma cells suggestive of residual myeloma. Tolerating maintenance Revlimid 5mg daily well. No bone pain and normal renal function--Dr. Vincent hasreleased for annual nephrology followup. He is fully vaccinated for [id number] and I contacted Dr. Hall for coordination of post transplant vaccines. Stable neuropathy with gabapentin escalated to 400mg am, 300mg midday, 400mg pm. Continues followup with palliative medicine. He has phone f/u with Dr. Hall later this week. I will f/u with myeloma labs in 3 months--CBC, CMP, SPEP, quant IGs, kappa/lambda light chains and beta2 microglobulin. He and his are in agreement with this plan. 10/15/2020: Patsy is here with his for transfer of care after Melphalan 100mg/m2 autologous stem cell transplant D0 = 07/25/2021. He is now D+83 and oneweek ago, he saw Dr. Hall for survivorship visit. We reviewed his post transplant course and prior infections have now resolved. Blood counts have recovered and renal function at prior baseline. He has persistent neuropathy ongabapentin 200mg am, 100mg noon, 200mg pm. I'm setting him up for palliative consultation (previously followed by WILFREDO Olivia). He has a followup bone marrow biopsy scheduled with Dr. Hall in 3 days to document remission. I will discuss with him the plan after bone marrow biopsy--I briefly discussed Revlimidmaintenance with Mr. Mills and his . I will contact patient after bone marrow results to confirm plan with Dr. Hall and f/u with him in about 6 weeks with myeloma labs. 07/02/2020: Patsy has completed all of his pretransplant evaluation at [facility] including cardiology visit 11 9 which showed ejection fraction 60%. I have contacted Dr. Hall who noted that today will be his last day of Velcade and we will hold his daratumumab. He was to have a COVID-19 teston 07/11/2020 for planned stem cell collection 07/17 and transplant on 07/23. I clarified with the staff at [facility] this this may be performed at [facility] and forwarded to them. 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 His pain mainly in hips is about 3 out of 10 and controlled with Percocet. His next follow-up with me jaime be in about 4 months when he is post transplant although I am happy to see him sooner if new issues arise in his post transplant course that need to bemanaged closer to home. His most recent labs reveal improving hemoglobin (11.5), stable renal function (creatinine 1.35), normal calcium, and appropriateresponse of kappa light chain to now normal 18 with K/L ratio 2.02. 06/04/2020: Met with Dr. Hall on 05/24/2020 to discuss planning for high-dose chemotherapy peripheral blood stem cell transplant. He has now hemodialysis independent after daratumumab, dexamethasone, and Velcade with addition of Revlimid. Today he reports that he has had increased neuropathy symptoms in hisbilateral hands and feet with mild interference with activity (grade 2). We discussed a 25% dose reduction of Velcade on day 1, day 4, day 8, day 11 with current cycle of DVdR. He has some leg cramps at night, with normal magnesium, but low iron saturation noted--will start daily iron for symptoms. Otherwise heis tolerating therapy well and creatinine is now normal. He was given educationfor the transplant course and he is scheduled in late June after [facility] to proceed with stem cell collection and transplant. I will communicate with Dr. Hall regarding end of therapy and in 1 month I will see him with follow-up myeloma studies. No other new concerns today. 05/07/2020: Patsy is here for 1 month follow-up. Outpatient hemodialysis was stopped after 04/24/2020 due to excellent response. He was evaluated by Dr. Small at [facility] on 04/26/2020. Angel and his note that Dr. Hall felt that he was physiologically about 8 years younger than his chronologic age and would likely be transplant eligible if pretransplant work-updeems this feasible. He recommended continuing current daratumumab and Velcade with low-dose Revlimid. He will reevaluate patient in 1 month and likely plan admission for stem cell collection, then high-dose chemotherapy/autologous stem cell transplantation in June or July. The patient's was concerned that she did not understand much of the pretransplant teaching and I explained to her and Don the pathophysiology of plasma cells, light chains, his improving trend of renal function, goal of 90% kappa/lambda ratio reduction prior to transplant. We also refilled Revlimid 5 mg every other day, weekly vitamin D, and I am giving him a trial of tramadol 50 mg every 12 hours as Tylenol is not effective for his pain and we are avoiding NSAIDs and additional aspirin. He otherwise has no toxicities of chemotherapy. He sees Dr. Heath for follow-up tomorrow and maintains insulin with stabilization of his blood sugars following with diabetes management clinic. I will see him in follow-up with myeloma labs in 1 month plan end of therapy prior to transplant. 04/09/2020: Here for one month f/u with his . He continues outpatient hemodialysis on Thursday//Saturdays. He notes fatigue, but generalized edema remarkably improved with no significant pain. I reviewed his M-spike, IgGand kappa light chains with K/L ratio that has remarkably improved (>90% reduction past month). Malden light chains decreased from 12,000 to 42. Only concern is significant hyperglycemia with dexamethasone. 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 I will coordinate evaluation by Dr. Quique Hall for HDC/autologous stem cell transplantevaluation and hold on adding Revlimid since significant response of light chains noted. I contacted Dr. Rahman of nephrology to consider reducing hemodialysis days to twice weekly. I will send myeloma labs in about 4 weeks, have him see Dr. Hall and f/u with me the following week to review plan and determine whether plan for HDC/stem cell transplant. 03/14/2020: Patient presents with his today after initiating both outpatienthemodialysis on Thursday//Saturdays and initial cycle of daratumumab, bortezomib, dexamethasone with potential addition of Revlimid after 1 month if less than optimal response. He received his first cycle of combination chemotherapy 03/12/2020. --Patient tolerated initial daratumumab infusion reasonably well with brief infusion reaction (dizziness and mild wheezing) that was treated with diphenhydramine, steroids, albuterol, and Demerol for rigors. He completed remaining infusion in an outpatient bed on the inpatient [facility] Thursday and we anticipate further weekly daratumumab infusions as an outpatient. --Patient was seen at dialysis today and noted to have hemoglobin 6.8. He will receive 1 unit of packed red blood cells prior to Velcade today for scheduled tomorrow. His was unable to be present at the hospital at time of diagnosis and his initial bone marrow biopsy was performed on 03/08/2020. She requests evaluation with him today for extensive questions regarding his care. She reported her session and requested a copy of this progress note following our visit today. 1. She asked if all the tests at the hospital returned. We discussed the teststhat are used to follow-up myeloma including his elevated IgG, elevated free kappa light chains, and elevated M spike. We discussed in detail the pathophysiology of myeloma but she felt very anxious and overwhelmed and I reassured her that we will readdress this at further follow-up visits. 2. Patient had a metastatic bone survey showing no areas of lytic disease or pathologic fractures. We discussed CRAB criteria for multiple myeloma diagnosisand that he meets criteria of R renal and A anemia, but not elevated calcium or bone disease (C and B). She specifically asked is stage of multiple myeloma andwe noted that he still will require beta-2 glycoprotein (ISS) but is most consistent with stage III. We are still awaiting his chromosomal abnormalities by fluorescence in situ hybridization and will readdress at next follow-up visitwith his final bone marrow biopsy results (this study was only performed 03/08/2020). 3. She wanted to know if his testing showed cancer elsewhere. We discussed that since metastatic bone survey showed more lytic areas I do not feel that F-18 PET is high priority but this may be ordered at some point to assess for any asymptomatic bony metastatic disease. 4. He has recently had elevated blood sugars and does not have a history of diabetes, but we discussed that with weekly steroids he should likely have additional insulin on his steroid days. I offered that this could be managed byhis primary physician Dr. Heath and he could be referred for diabetes management clinic. 5. We reiterated multiple times that his schedule may be variable. He will typically have a long infusion on Mondays with daratumumab but initially he willpresent twice weekly for Velcade injection on Mondays and . This will change during the course of his therapy and he should refer to his calendar. 6. We discussed not taking additional vitamins unless approved by nephrology. I also discussed potentially adding Revlimid and we will address at future visits if this is needed based on his follow-up labs ordered 04/02/2020. His medications may be filled either locally or with his prescription plan, but manyof these will be ordered by nephrology. He is to continue vitamin D2 as recommended by nephrology. Blood pressure medications will be regulated by primary care and nephrology. 7. We discussed concerning side effects, most commonly hyperglycemia, insomnia,risk of thrombosis (recently was diagnosed with left superficial thrombosis of the left upper extremity and additional heparin is given with his dialysis), and neuropathy with Velcade. Patients do not tend to have significant nausea or possible appetite (effects of dexamethasone increase his appetite). I cannot recommend medical marijuana and would discuss this with his pre coder whetherthis would interfere with dialysis. We will also follow closely for cytopenias and reviewed infectious precautions. He has a son from [place] who plans to visit on Thursday and we discussed COVID-19 testing appropriate social isolation protocols. 8. We discussed whether he was eligible for transplant and this will be evaluated based on his response and overall health in likely 3 to 4 months afterinitiation of therapy. We did not discuss autologous stem cell transplant in detail. We did discuss that although this is not curative therapy, many patients are controlled with medication over longer periods of time (often 5 to 6 years) with appropriate therapy. It is an aggressive cancer due to its significant infectious risk and association with renal failure. 9. Exercise may be performed as tolerated but should be done in moderation and likely we should wait a few weeks for more significant exercise given his recentdialysis and initiation of chemotherapy. I did not specifically address his diet but he may address this with our [facility] nutrition team. He will also receivechemotherapy class with our nurses in the infusion center. PRELIMINARY HISTORY (from initial consult 03/08/2020): This is a now 77-year-old male who was transferred from [place] emergency room by [facility] due to critical potassium 8.7 with elevated creatinine 11.2 and BUN 82 on 03/04/2020. We do not have any recent blood work for comparison but hehad normal creatinine in 2011. He was urgently treated for his hyperkalemia anddialysis was arranged emergently by nephrology team. He has now stabilized on dialysis and had extensive work-up for etiology of his acute renal failure with severe anemia felt to be due to anemia of renal insufficiency. Iron studies returned normal with ferritin 160, but B12 low at 84 and folate low normal at 5.2. He is receiving appropriate B12 repletion. The patient reports that he has had a prolonged period of fatigue up to a year and has decreased appetite with subjective weight loss. He denies any significant bone pain other than pain in his right shoulder and has no prior falls or recurrent back pain. He had a shoulder film showing labral pathology of the joint but no fracture or dislocation. Myeloma labs were sent showing M spike 3.6 g/dL with serum immunofixation showing IgG kappa light chain specificity. Serum IgG markedly elevated at 5312 and free kappa light chain 12,649.9 with normal free lambda light chain 11.94 free kappa/lambda ratio 1063. Hepatitis A, B, and C serologies were all negative and COVID-19 screening was negative. LORE, c-ANCA, p-ANCA, anti-GBM, and antimyeloperoxidase were all negative. Clinically the patient has multiple myeloma and I explained that we needed to proceed with bone marrow aspiration and biopsy to provide baseline for diagnosis and to expedite chemotherapy with anaggressive regimen to reduce his light chains. I will review information with him at noon today around the time of his bone marrow biopsy for combination daratumumab 16 mg/kg IV weekly, bortezomib 1.3 mg/kg subcu twice weekly, dexamethasone 40 mg weekly, and Revlimid 25 mg p.o. daily days 1 through 14 of each 21-day cycle. Revlimid will be ordered through a special pharmacy. We will schedule his infusions as an outpatient early next week on his nondialysis days. Written literature for these medications will be provided and he may signinformed consent so that we may order this regimen as an outpatient. The patient's is not with him today but has been treated by me for breast cancer in the past and had multiple questions. We would like to arrange a time for her to be available to ask questions and be present for chemo consent, possibly around noon today. This will need to be coordinated with nursing staffdue to COVID-19 visitor restriction policy. - Summary of Therapies Summary of Therapies: Cycle 1 day 1 03/12/2020: Daratumumab 16 mg/kg IV weekly, bortezomib 1.3 mg/kg subcu twice weekly, dexamethasone 40 mg weekly. 04/09/2020: Under direction of Dr. Hall, in early April we added Revlimid 5 mg every other day of each 21-day cycle with cycle 2 due to excellent response of kappa light chains. 04/26/2020: Malignant hematology eval for possible high-dose chemotherapy/autologous stem cell transplant. He was able to stop dialysis 04/24/2020. Given Velcade only (hold daratumumab) on 07/02/2020. 07/25/2020: Melphalan 100mg/m2 IV day 0 autologous stem cell transplant 07/25/2020at [facility]. 11/26/2020: Follow-up bone marrow aspiration and biopsy 10/18/2020 for MRD evaluation shows hypocellular marrow with 0.5% plasma cells, no clonal population by flow cytometry but 0.03% kappa light chain skewing. Started Revlimid 5 mg daily for maintenance therapy early October 2020. Nondiagnostic bone marrow for MRD in spring 2021 at . Planned follow-up bone marrow biopsy for MRD at [facility] fall 2021. -- 02/05/2022: Revlimid on hold since 12/12/2021 for cytopenias. Continue to follow off Revlimid 1 more month, then with improved anemia in 02/2022, we resumed 5 mg every other day maintenance. ROS Details: All systems reviewed & no additional complaints except as documented Subjective/ROS - Narrative: CONSTITUTIONAL: Stable chronic fatigue since HD Melphalan/ASCT 07/2020, negativefor fever or night sweats. Post-transplant infections as per HPI, now resolved. HEAD AND NECK: Stable vision since control of his diabetes mellitus. Negative for changes in hearing. Negative for mouth ulcers, nasal congestion and nasal drainage. PULMONARY: Negative for chest pain, cough and dyspnea. CARDIOVASCULAR: Negative for claudication and irregular heartbeat/palpitations. Resolved edema since diagnosis, now off dialysis. GASTROINTESTINAL: Negative for abdominal pain, constipation, diarrhea, nausea orvomiting. Improved appetite and 20 kg weight loss after starting dialysis, chemotherapy, and transplant for light chain nephropathy. 11/2020--returned to baseline weight pretransplant. GENITOURINARY: Negative for dysuria and hematuria. Improved urinary output, diagnosed in February 2020 with renal failure requiring dialysis--off dialysis 04/24/2020. Prior nephrolithiasis previously followed by Dr. Seals--recent ESWL 01/14/2022 at [place]. ENDOCRINE: Negative for cold intolerance and heat intolerance. Improvement of prior hyperglycemia with home blood sugars in the 100-200s on supplemental insulin glargine. CENTRAL NERVOUS SYSTEM: Negative for gait disturbance and headache. No focal neurologic deficits or history of stroke. 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 PSYCHIATRIC: Negative for anxiety or depression. DERMATOLOGICAL: Positive for pruritus and rash as per HPI. Negative for suspicious skin lesions. MUSCULOSKELETAL: Resolved back pain and and thigh pain. Resolved leg cramps, improved neuropathy. No longer on ferrous sulfate post transplant. HEMATOLOGICAL: Negative for bleeding and easy bruising. Transfusion 2 units packed red blood cells 01/23/2022 for hemoglobin 6.7. Only other transfusion was 2 units red cells October 2021. Positive for left basilic vein thrombus on Doppler ultrasound 03/12/2020--no longer requires anticoagulation. Revlimid decreased to 5mg every other day. ALLERGY: Negative for environmental allergies and food allergies. PMFSH - History Attestation statement: The following information was validated with the patient. Source: Old Records Reviewed - Medical History Medical History: Medical History (Last Reviewed 05/24/22 @ 12:13 by Brook Huddleston MD) Apnea Arthritis Diabetes mellitus, type 2 Hyperlipidemia Hypertension Kidney stones Multiple myeloma Skin cancer - Family History Family History: Family History (Last Reviewed 05/24/22 @ 12:13 by Brook Huddleston MD) Sister Myocardial infarct Mother Myocardial infarct Father Skin cancer - Social History Smoking Status: Former smoker Tobacco Type: cigarettes Substance Use Type: None Home Medications & Allergies Allergies gabapentin Allergy (Verified 05/23/22 11:10) Rash Home Medications famotidine 20 mg tablet 20 mg PO DAILY #30 tabs 03/10/20 [Rx Confirmed 05/23/22] insulin glargine 100 unit/mL (3 mL) subcutaneous pen (Lantus Solostar U-100 Insulin) 25 unit subcut DAILY 04/27/20 [History Confirmed 05/23/22] insulin lispro 100 unit/mL subcutaneous pen (Humalog KwikPen (U-100) Insulin) 6 - 16 unit subcut DIRECTED 04/27/20 [History Confirmed 05/23/22] atorvastatin 20 mg tablet 20 mg PO DAILY 10/15/20 [History Confirmed 05/23/22] cholecalciferol (vitamin D3) 50 mcg (2,000 unit) capsule (Vitamin D3) 50 mcg PO DAILY 10/15/20 [History Confirmed 05/23/22] aspirin 81 mg tablet,delayed release 81 mg PO DAILY 11/26/20 [History Confirmed 05/23/22] metformin 500 mg tablet 500 mg PO BID 11/26/20 [History Confirmed 05/23/22] acyclovir 400 mg tablet 400 mg PO BID 60 days #120 tabs 12/26/21 [Rx Confirmed 05/23/22] terazosin 10 mg capsule 10 mg PO DAILY 02/07/22 [History Confirmed 05/23/22] potassium chloride 20 mEq tablet,extended release 20 meq PO DAILY #90 tabs 04/11/22 [Rx Confirmed 05/23/22] tamsulosin 0.4 mg capsule 0.4 mg PO BID 04/30/22 [History Confirmed 05/23/22] lenalidomide 5 mg capsule (Revlimid) See Rx Instructions .Route .COMPLEX #14 caps 05/02/22 [Rx Confirmed 05/23/22] Objective - Height/Weight Height/Weight: Height 5 ft 10 in Weight 98.43 kg BSA for Today's Weight 2.10 - Vital Signs Vital Signs: 05/23/22 11:13 Temperature 97.8 F Pulse Rate [Monitor] 78 Respiratory Rate 18 Blood Pressure [Left Arm] 164/60 H 02 Sat by Pulse Oximetry 98 Oxygen Delivery Method Room Air - Pain Right Hip Pain Intensity: 5 Generalized Pain Intensity: 1 Left Upper Arm Pain Intensity: 4 Physical Exam Narrative: CONSTITUTIONAL: The patient is in no acute distress. Stable fatigue but can ambulate independently. HEAD / FACE: Normocephalic. EYES: Pupils are equal and reactive to light. Conjunctivae and lids are benign in appearance. Ocular movement intact. EARS: Hearing grossly intact. NOSE / MOUTH / THROAT: Nose, mouth, tongue and oropharynx are benign in appearance. No signs of inflammation. NECK / THYROID: Neck is supple. Thyroid is symmetrical, without thyromegaly, masses or palpable nodules. LYMPHATIC: No palpable cervical, supraclavicular, axillary, or inguinal adenopathy. RESPIRATORY: Normal to inspection. Lungs clear to auscultation and percussion. No wheezing, rales, rhonchi or rubs. Normal effort. CARDIOVASCULAR: Regular rate and rhythm. No murmurs, gallops, or rubs. VASCULAR: Carotid, radial, femoral and pedal pulses present bilaterally. No bruits. ABDOMEN: Bowel sounds normoactive. Soft, nontender and non-distended. No hepatosplenomegaly. No masses. GENITOURINARY: No CVA tenderness. No suprapubic fullness or tenderness. No groinadenopathy. No evidence of hernias. INTEGUMENTARY: The skin is unremarkable. Resolved antecubital/chest rashes. No suspicious lesions BACK / SPINE: The back is nontender. No step-off deformity. No CVA tenderness. MUSCULOSKELETAL: Normal musculature, no joint deformities or abnormalities, normal range of motion for all four extremities. EXTREMITIES: No longer has bilateral lower extremity edema; no cyanosis or clubbing. No Vitor sign. NEUROLOGICAL: Alert and oriented. Cranial nerves intact. No gross motor or sensory deficits. PSYCHIATRIC: No anxiety or evidence of depression. - ECOG Performance Status ECOG Score: 2 - fatigue Results - Labs Labs: Diagram of Most Recent CBC and CMP 03/20/22 11:25 12/26/21 16:01 - Impressions No new imaging for review. 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 He had marked elevation in IgG kappa on initial laboratory work-up for renal failure in February 2020. He has remained hemodynamically stable and I discussed in detail with the patient the pathophysiology of multiple myeloma and associated injury to kidneys, persistent anemia, bone disease, and potential hypercalcemia (we do not see hypercalcemia in this patient). He consented to inpatient bone marrow biopsy 03/08/2020 which was diagnostic for multiple myeloma--70% plasma cells without amyloid depositionidentified in small marrow specimen. Normal baseline skeletal survey. I reviewed pathophysiology of myeloma, results of bone marrow biopsy, skeletal survey, and myeloma labs with the patient and his . Patsy consented to begin first cycle Daratumumab, Velcade, and dexamethasone on03/12/2020--other than infusion reaction from first Daratumumab, improved with symptomatic therapy. I reviewed his case with Dr. Quique Hall of Malignant Hematology--added Revlimid 5mg qod following significant reduction of light chains in early April 2020. 05/07/2020: As per HPI, Angel and his met with Dr. Hall 04/26/2020 with preparation for likely high-dose chemotherapy/autologous peripheral stem cell transplant if he meets criteria based on cardiopulmonary work-up. He has had greater than 90%. The patient was able to discontinue hemodialysis on 04/24/2020 and has not had any recurrence of edema with now improved renal function, creatinine clearance now 53. --I will continue current therapy with further evaluation by Dr. Hall in 1 month for planning his HDC/autologous stem cell transplant. We will send repeatmyeloma labs (SPEP, IgG, kappa/lambda light chains) in 4 weeks with f/u visit with me the following week to review results as well as evaluation with Dr. Hall for possible stem cell transplant. 06/04/2020: Tolerating chemotherapy well other than increasing neuropathy of hands and feet. Dose reduced Velcade by 25% next cycle. Added daily ferrous sulfate. --He was referred to diabetes management clinic and sees Dr. Heath with regularfollow-up by Dr. Rahman since he is off dialysis. Diabetes control improved. 07/02/2020: Last dose of Velcade today. Neuropathy is stable and pain is well controlled. He will have COVID-19 test on 07/11/2020 for planned admission for stem cell collection on 07/17/2020 then high-dose melphalan followed by peripheral blood stem cell transplant day 0 scheduled 07/23/2020. His next follow-up withga will be in about 4 months after he is completed day 100 transplant follow-up. He may return sooner as needed. 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 Melphalan 100mg/m2 + ASCT Day 0 07/25/2020. 11/26/2020: Followup of [facility] end of therapy bone marrow biopsy 10/18/2020--no minimal residual disease. Started Revlimid maintenance 5mg daily in early October2020. 02/27/2021: No new symptoms other than rash. Slow improvement of neuropathy--titrating off gabapentin with palliative medicine. Benadryl for rash. Continue Revlimid 5mg daily. He will be due for first post transplant vaccines sooner--will check schedule with . 05/30/2021: Rash and neuropathy improved. Tolerating Revlimid well. Discussedcoronavirus booster and influenza vaccines. Post transplant vaccines due in 07/2021. No M-spike and normal kappa/lambda ratio. 10/03/2021: Multiple admissions for hyperkalemia, renal insufficiency due to dehydration, anemia requiring transfusion. Still feels weak and dizzy and his electrolyte disorders are being managed by primary care. No detectable M spike's and kappa/lambda light chain ratio is normal with elevated levels of both likely due to recent infections. Skeletal survey without new lytic lesions. He is due for MRD bone marrow follow-up with Dr. Hall next month. For now continue Revlimid 5 mg daily. 01/02/2022: Patient presents with his who is concerned with increasing fatigue. He has had a decline in his hemoglobin to 8 although his renal function is actually improved from prior values with creatinine clearance of 50. We sent serum iron profile showing increased iron stores with iron saturation 72% and ferritin 663. Homocystine was normal methylmalonic acid is pending. Wewill also send an erythropoietin level to see if there may be a benefit to adding erythropoietin for anemia of chronic kidney disease. He will continue to follow with Dr. Meade. He still has no M spike on serum protein electrophoresis and normal kappa/lambda light chain ratio. MRD testing at [facility] was nondiagnostic and he will have repeat bone marrow biopsy here with me to send MRD testing. Next followup with me in 3 months for exam and f/u myeloma labs. We will coordinate his bone marrow biopsy at that time. He will continue follow-up by nephrology for chronic kidney disease although his prior hyperkalemia has improved on recent labs. May return sooner if new issues arise. 02/05/2022: Patient has persistent fatigue although did require transfusion 2 weeks ago for hemoglobin 7.6. Iron studies show increased iron saturation and ferritin with normal methylmalonic acid and homocystine. Erythropoietin level is elevated therefore he does not have an indication for erythrocyte stimulating agents. Myelosuppression is likely due to prior Revlimid and I willkeep him off therapy for another 1 month with repeat CBC at that time. If anemia is improving I will resume Revlimid at 5 mg every other day maintenance therapy. He will be scheduled for MRD bone marrow at [place] [facility] in April 2022, then follow-up with me with review of myeloma labs 3 months after this procedure. He still has undetectablemonoclonal spike and normal kappa/lambda light chain ratio on most recent labs. Renal function is improving since ESWL at [place] in late December. 05/23/2022: No new issues, bone marrow biopsy 04/30/2022 in shows no morphologic evidence of myeloma, but specimen was not sent for MRD testing. Patient agreed to bone marrow aspirate only today performed for MRD testing and documented in a separate procedure note. Normal trilineage hematopoiesis on bone marrow biopsy with increased iron stores. Revlimid now down to 5mg every other day. Will review MRD testing with myeloma labs (SPEP for monoclonal spike and kappa/lambda light chain ratio) at next followup in 4 weeks. Considerfurther Revlimid dose reduction if persistent anemia on CBC with CMP and if MRD negative. This is a low complexity visit over 25 minutes for bone marrow biopsy review, address multiple comorbidities, and followup plan with patient and his . (2) Anemia of renal disease Hemoglobin has decreased to 8 and iron stores show increased iron saturation andferritin. He no longer takes supplemental iron but has ongoing B12 repletion 1 mg p.o. daily. Methylmalonic acid is pending to assess whether B12 repletion isadequate. We are also sending an erythropoietin level and if methylmalonic acidis normal, we will initiate erythropoietin therapy for anemia of chronic kidney disease. I will update nephrology if decision to add erythrocyte stimulating agent therapy. I will contact him with these results and coordinate repletion therapy. In addition the patient is on chronic Revlimid which it is myelosuppressive. -- Revlimid has was on hold 12/12/2021. He did require transfusion in early Januaryand had elevated iron saturation and ferritin, normal methylmalonic acid and homocystine, and increased erythropoietin level. We resumed Revlimid in early February. MRD bone marrow aspirate sent today--no dysplasia on bone marrow biopsy. For now may continue Revlimid 5mg every other day and consider further dose reduction if persistent anemia with MRD negative on f/u in one month. (3) History of hemodialysis Initiated inpatient hemodialysis 02/2020, then transitioned to outpatient hemodialysis 3 times weekly Thursday//Thursday schedule. Chemotherapy given Thursday/. 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 He was actually able to stop dialysis within 2 months with the last session 04/24/2020 as noted above. Now 22 months after Melphalan 100mg/m2 + autologous PBSCT given his significant response to initial myeloma directed therapy. Continued f/u with nephrology for stage III chronic kidney disease/resolved hyperkalemia. (4) Steroid-induced diabetes mellitus Qualifiers: Encounter type: subsequent encounter Qualified Code(s): E09.9 - Drug or chemical induced diabetes mellitus without complications; T38.0X5D - Adverse effect of glucocorticoids and synthetic analogues, subsequent encounter Patsy had an excellent response of light chains but was noted to have significant hyperglycemia 300-500 fasting blood sugars. He was referred to diabetes management clinic with addition of insulin therapy that has significantly improved control of his blood sugars. Patient also had remarked on some blurred vision that improved with control of blood sugars. Continue follow-up of blood sugars during admission for transplant in early July. 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 Resumed low dose metformin and titrating down insulin--directed by his primary physician. Recent injection (likely Avastin) for diabetic retinopathy. (5) B12 deficiency Patient was found to have B12 deficiency and was been placed on daily B12 prior to hospital discharge. We continued weekly IM B12 for 8 weeks with his myeloma regimen. Hemoglobin is improved on Aranesp and weekly B12, then changed to monthly maintenance therapy. He has not required further blood transfusions since 03/15/2020. Follow- up methylmalonic acid on 04/30/2020 was normal showing adequate replacement. He will continue monthly IM B12 and weekly vitamin D2 therapy 50,000 units orally for low 25 hydroxy vitamin D stores. He may take supplemental calcium once daily. -- Repeat methylmalonic acid normal and will continue current B12 dosing (6) Encounter for chemotherapy management Started cycle 1 day 1 03/12/2020: Daratumumab 16 mg/kg IV weekly, bortezomib 1.3 mg/kg subcu twice weekly, dexamethasone 40 mg weekly. We added Revlimid 5 mg every other day of each 21-day cycle with cycle 2 due to excellent reduction of kappa light chains (recommended by Dr. Hall malignanthematology). 06/04/2020: 25% DR Bortezomib (100% all other meds) due to worsening neuropathy. Last dose of bortezomib 07/02/2020 and holding daratumumab per request of Dr. Hall. 07/25/2020: Melphalan 100mg/m2 + autologous PBSCT 10/18/2020: Started Revlimid 5 mg daily maintenance after bone marrow biopsy negative for MRD. Repeat MRD bone marrow at [facility] in 3 months because spring 2021 bone marrow at was nondiagnostic. -- Revlimid on hold 12/12/2021 due to myelosuppression. Continue to hold at 02/05/2022 follow-up visit. Resumed 5mg po every other day around February 2022 and will continue for now pending MRD testing. - Chemo Plan Chemo Plan (Dose, Rate, Freq): 09/25/2019: Melphalan 100mg/m2 + autologous PBSCT-->10/2020 Revlimid 5mg daily maintenance after MRD bone marrow biopsy. On hold 12/12/2021 due to anemia then 02/2022 resumed 5mg every other day. Goal of Treatment: Control - Time with Patient Time Spent with Patient (Follow Up Visit): 25 minutes - Review bone marrow biopsy and manage anemia. Coordination of Care & Counseling Time: Greater than 50% of time spent with patient was for coordination of care (as documented) and [id number] counseling of patient and/or family. Dictated By: Brook Huddleston MD DD/ [id number] Signed By: <Electronically signed by MD Brook Huddleston> 05/24/22 1225 [facility] Work Phone: [phone] [facility] Hospital Discharge instructions Patient Education 05/05/2022 10:53:10 EU - Urolift Discharge Instructions (Custom) Urolift Some men may experience discomfort after the procedure. On occasion, some bloody discharge may be apparent from the penis. You may have soreness in the lower abdomen, and it may be uncomfortable to sit. You may experience the need to urinate more frequently and with greater urgency. These are all normal reactions to the procedure. It is important to take care of yourself the next couple of days to facilitate a speedy recovery. The following are some suggestions: -Have someone drive you home after the procedure. -Drink plenty of water; 8 10oz glasses per day. If your urine looks dark yellow, you are probably not drinking enough water. -Take your medications as prescribed -If you have a catheter placed, do not engage in strenuous activity until your catheter has been removed. You may take a shower but avoid a bath while you have a catheter. - In the event you have to go home with a catheter, you may notice leakage of urine and/or yellow discharge/blood around the catheter. This is normal and no cause to be alarmed; UNLESS you are havingsignificant pain associated with the leakage or the leakage does not stop. -You can use Tylenol or Advil for discomfort. Use AZO (over the counter) for burning with urination It is normal to have some blood in your urine after surgery. One day it may be clear, and the next day it might be bloody. Do not be alarmed, this can last a week and sometimes longer. It is normal to feel like you have to urinate very often but nothing comes out. You may feel like you have to urinate again, or feel pressure in the pelvic area, even right after you just urinated. You may leak and not make it to the bathroom. These are called bladder spasms and are common after the procedure. It is normal to have some discomfort after the procedure. This can last up to 4 weeks and includes:pelvic ache, urinary frequency, and urinary urgency. Most patients report symptoms getting better within 2 weeks. Finish the antibiotic which you have already started If you were given drugs to make you drowsy or pain medication follow these instructions: -You should spend the remainder of the day and evening resting -You should not attempt to walk, including going to the bathroom without assistance. You may be lightheaded from the medication you received. -Eat light today to avoid nausea. You should be able to return to your normal diet 24 to 36 hours after your procedure. -For the next 24 hours, do not consume alcohol, attempt to drive, use power tools, sign important documents or make important decisions. After that only do so if you feel perfectly normal and alert. -Follow carefully any verbal or written instructions your surgeon may give you. You should contact your physician if you experience any of the following: -Temperature above 101.5 -Excessive urinary bleeding or bleeding from the penis -Continuous bladder spasms -Painful, swollen and/or inflated testicle(s) or scrotum. -Unable to void spontaneously or the indwelling catheter is not draining urine or is blocked -Bright spivey red urine that does not stop after 3 days -Unable to urinate after 7-8 hours or bladder feeling full and you can t urinate -If you have excessive or persistent pain, swelling, bleeding, nausea, vomiting, or any problems, you should first call your surgeon for advice. If you are unable to contact your surgeon, seek help from a hospital emergency room. If your doctor suggests that you go to the emergency room for catheterization for inability to urinate, be sure to tell the facility personnel to use a Coude (pronouncedcoo-day) tipped catheter. Follow Up Care 04/18/2022 14:54:13 With:Vesna Cortez Address:Unknown When: Unknown Comments:Office will call to schedule follow up in 1 month with PVR and IPSSFollow up in 1-2 days for bond removal if urine is clear With:Vesna Cortez Address:Unknown When: Unknown [facility]09-02-2022 Hospital Discharge instructions Patient Education 04/18/2022 14:33:30 Calorie Counting for Weight Loss Calorie Counting for Weight Loss Calories are units of energy. Your body needs a certain amount of calories from food to keep you going throughout the day. When you eat more calories than your body needs, your body stores the extra calories as fat. When you eat fewer calories than your body needs, your body hartman fat to get the energy it needs. Calorie counting means keeping track of how many calories you eat and drink each day. Calorie counting can be helpful if you need to lose weight. If you make sure to eat fewer calories than your bodyneeds, you should lose weight. Ask your health care provider what a healthy weight is for you. For calorie counting to work, you will need to eat the right number of calories in a day in order to lose a healthy amount of weight per week. A dietitian can help you determine how many calories youneed in a day and will give you suggestions on how to reach your calorie goal. A healthy amount of weight to lose per week is usually 1 2 lb (0.5 0.9 kg). This usually means thatyour daily calorie intake should be reduced by 500 750 calories. Eating 1,200 1,500 calories per day can help most women lose weight. Eating 1,500 1,800 calories per day can help most men lose weight. What is my plan? My goal is to have calories per day. If I have this many calories per day, I should lose around pounds per week. What do I need to know about calorie counting? In order to meet your daily calorie goal, you will need to: Find out how many calories are in each food you would like to eat. Try to do this before you eat. Decide how much of the food you plan to eat. Write down what you ate and how many calories it had. Doing this is called keeping a food log. To successfully lose weight, it is important to balance calorie counting with a healthy lifestyle that includes regular activity. Aim for 150 minutes of moderate exercise (such as walking) or 75 minutes of vigorous exercise (such as running) each week. Where do I find calorie information? The number of calories in a food can be found on a Nutrition Facts label. If a food does not have aNutrition Facts label, try to look up the calories online or ask your dietitian for help. Remember that calories are listed per serving. If you choose to have more than one serving of a food, you will have to multiply the calories per serving by the amount of servings you plan to eat. Forexample, the label on a package of bread might say that a serving size is 1 slice and that there are 90 calories in a serving. If you eat 1 slice, you will have eaten 90 calories. If you eat 2 slices, you will have eaten 180 calories. How do I keep a food log? Immediately after each meal, record the following information in your food log: What you ate. Don't forget to include toppings, sauces, and other extras on the food. How much you ate. This can be measured in cups, ounces, or number of items. How many calories each food and drink had. The total number of calories in the meal. Keep your food log near you, such as in a small notebook in your pocket, or use a mobile silvia or website. Some programs will calculate calories for you and show you how many calories you have left forthe day to meet your goal. What are some calorie counting tips? Use your calories on foods and drinks that will fill you up and not leave you hungry: ?Some examples of foods that fill you up are nuts and nut butters, vegetables, lean proteins, and high-fiber foods like whole grains. High-fiber foods are foods with more than 5 g fiber per serving. ?Drinks such as sodas, specialty coffee drinks, alcohol, and juices have a lot of calories, yet do not fill you up. Eat nutritious foods and avoid empty calories. Empty calories are calories you get from foods or beverages that do not have many vitamins or protein, such as candy, sweets, and soda. It is better to have a nutritious high-calorie food (such as an avocado) than a food with few nutrients (such as a bag of chips). Know how many calories are in the foods you eat most often. This will help you calculate calorie counts faster. Pay attention to calories in drinks. Low-calorie drinks include water and unsweetened drinks. Pay attention to nutrition labels for low fat or fat free foods. These foods sometimes have thesame amount of calories or more calories than the full fat versions. They also often have added sugar, starch, or salt, to make up for flavor that was removed with the fat. Find a way of tracking calories that works for you. Get creative. Try different apps or programs ifwriting down calories does not work for you. What are some portion control tips? Know how many calories are in a serving. This will help you know how many servings of a certain food you can have. Use a measuring cup to measure serving sizes. You could also try weighing out portions on a kitchenscale. With time, you will be able to estimate serving sizes for some foods. Take some time to put servings of different foods on your favorite plates, bowls, and cups so you know what a serving looks like. Try not to eat straight from a bag or box. Doing this can lead to overeating. Put the amount you would like to eat in a cup or on a plate to make sure you are eating the right portion. Use smaller plates, glasses, and bowls to prevent overeating. Try not to multitask (for example, watch TV or use your computer) while eating. If it is time to eat, sit down at a table and enjoy your food. This will help you to know when you are full. It will also help you to be aware of what you are eating and how much you are eating. What are tips for following this plan? Reading food labels Check the calorie count compared to the serving size. The serving size may be smaller than what youare used to eating. Check the source of the calories. Make sure the food you are eating is high in vitamins and proteinand low in saturated and trans fats. Shopping Read nutrition labels while you shop. This will help you make healthy decisions before you decide to purchase your food. Make a grocery list and stick to it. Cooking Try to cook your favorite foods in a healthier way. For example, try baking instead of frying. Use low-fat dairy products. Meal planning Use more fruits and vegetables. Half of your plate should be fruits and vegetables. Include lean proteins like poultry and fish. How do I count calories when eating out? Ask for smaller portion sizes. Consider sharing an entree and sides instead of getting your own entree. If you get your own entree, eat only half. Ask for a box at the beginning of your meal and put the rest of your entree in it so you are not tempted to eat it. If calories are listed on the menu, choose the lower calorie options. Choose dishes that include vegetables, fruits, whole grains, low-fat dairy products, and lean protein. Choose items that are boiled, broiled, grilled, or steamed. Stay away from items that are buttered,battered, fried, or served with cream sauce. Items labeled crispy are usually fried, unless stated otherwise. Choose water, low-fat milk, unsweetened iced tea, or other drinks without added sugar. If you want an alcoholic beverage, choose a lower calorie option such as a glass of wine or light beer. Ask for dressings, sauces, and syrups on the side. These are usually high in calories, so you should limit the amount you eat. If you want a salad, choose a garden salad and ask for grilled meats. Avoid extra toppings like mariano, cheese, or fried items. Ask for the dressing on the side, or ask for olive oil and vinegar or lemon to use as dressing. Estimate how many servings of a food you are given. For example, a serving of cooked rice is cup orabout the size of half a baseball. Knowing serving sizes will help you be aware of how much food you are eating at restaurants. The list below tells you how big or small some common portion sizes arebased on everyday objects: ?1 oz 4 stacked dice. ?3 oz 1 deck of cards. ?1 tsp 1 . ?1 Tbsp a ping-pong ball. ?2 Tbsp 1 ping-pong ball. ? cup baseball. ?1 cup 1 baseball. Summary Calorie counting means keeping track of how many calories you eat and drink each day. If you eat fewer calories than your body needs, you should lose weight. A healthy amount of weight to lose per week is usually 1 2 lb (0.5 0.9 kg). This usually means reducing your daily calorie intake by 500 750 calories. The number of calories in a food can be found on a Nutrition Facts label. If a food does not have aNutrition Facts label, try to look up the calories online or ask your dietitian for help. Use your calories on foods and drinks that will fill you up, and not on foods and drinks that will leave you hungry. Use smaller plates, glasses, and bowls to prevent overeating. This information is not intended to replace advice given to you by your health care provider. Make sure you discuss any questions you have with your health care provider. Document Released: 08/03/2006 Document Revised: 04/22/2019 Document Reviewed: 07/03/2017 [employer] Patient Education 2020 [employer]. 04/18/2022 14:33:29 Benign Prostatic Hyperplasia Benign Prostatic Hyperplasia Benign prostatic hyperplasia (BPH) is an enlarged prostate gland that is caused by the normal agingprocess and not by cancer. The prostate is a walnut-sized gland that is involved in the production of semen. It is located in front of the rectum and below the bladder. The bladder stores urine and the urethra is the tube that carries the urine out of the body. The prostate may get bigger as a man gets older. An enlarged prostate can press on the urethra. This can make it harder to pass urine. The build-up of urine in the bladder can cause infection. Back pressure and infection may progress to bladder damage and kidney (renal) failure. What are the causes? This condition is part of a normal aging process. However, not all men develop problems from this condition. If the prostate enlarges away from the urethra, urine flow will not be blocked. If it enlarges toward the urethra and compresses it, there will be problems passing urine. What increases the risk? This condition is more likely to develop in men over the age of 50 years. What are the signs or symptoms? Symptoms of this condition include: Getting up often during the night to urinate. Needing to urinate frequently during the day. Difficulty starting urine flow. Decrease in size and strength of your urine stream. Leaking (dribbling) after urinating. Inability to pass urine. This needs immediate treatment. Inability to completely empty your bladder. Pain when you pass urine. This is more common if there is also an infection. Urinary tract infection (UTI). How is this diagnosed? This condition is diagnosed based on your medical history, a physical exam, and your symptoms. Tests will also be done, such as: A post-void bladder scan. This measures any amount of urine that may remain in your bladder after you finish urinating. A digital rectal exam. In a rectal exam, your health care provider checks your prostate by putting a lubricated, gloved finger into your rectum to feel the back of your prostate gland. This exam detects the size of your gland and any abnormal lumps or growths. An exam of your urine (urinalysis). A prostate specific antigen (PSA) screening. This is a blood test used to screen for prostate cancer. An ultrasound. This test uses sound waves to electronically produce a picture of your prostate gland. Your health care provider may refer you to a specialist in kidney and prostate diseases (urologist). How is this treated? Once symptoms begin, your health care provider will monitor your condition (active surveillance or watchful waiting). Treatment for this condition will depend on the severity of your condition. Treatment may include: Observation and yearly exams. This may be the only treatment needed if your condition and symptoms are mild. Medicines to relieve your symptoms, including: ?Medicines to shrink the prostate. ?Medicines to relax the muscle of the prostate. Surgery in severe cases. Surgery may include: ?Prostatectomy. In this procedure, the prostate tissue is removed completely through an open incision or with a laparoscope or robotics. ?Transurethral resection of the prostate (TURP). In this procedure, a tool is inserted through the opening at the tip of the penis (urethra). It is used to cut away tissue of the inner core of the prostate. The pieces are removed through the same opening of the penis. This removes the blockage. ?Transurethral incision (TUIP). In this procedure, small cuts are made in the prostate. This lessens the prostate's pressure on the urethra. ?Transurethral microwave thermotherapy (TUMT). This procedure uses microwaves to create heat. The heat destroys and removes a small amount of prostate tissue. ?Transurethral needle ablation (TUNA). This procedure uses radio frequencies to destroy and remove a small amount of prostate tissue. ?Interstitial laser coagulation (ILC). This procedure uses a laser to destroy and remove a small amount of prostate tissue. ?Transurethral electrovaporization (TUVP). This procedure uses electrodes to destroy and remove a small amount of prostate tissue. ?Prostatic urethral lift. This procedure inserts an implant to push the lobes of the prostate away from the urethra. Follow these instructions at home: Take mdsc-gmt-bbneexy and prescription medicines only as told by your health care provider. Monitor your symptoms for any changes. Contact your health care provider with any changes. Avoid drinking large amounts of liquid before going to bed or out in public. Avoid or reduce how much caffeine or alcohol you drink. Give yourself time when you urinate. Keep all follow-up visits as told by your health care provider. This is important. Contact a health care provider if: You have unexplained back pain. Your symptoms do not get better with treatment. You develop side effects from the medicine you are taking. Your urine becomes very dark or has a bad smell. Your lower abdomen becomes distended and you have trouble passing your urine. Get help right away if: You have a fever or chills. You suddenly cannot urinate. You feel lightheaded, or very dizzy, or you faint. There are large amounts of blood or clots in the urine. Your urinary problems become hard to manage. You develop moderate to severe low back or flank pain. The flank is the side of your body between the ribs and the hip. These symptoms may represent a serious problem that is an emergency. Do not wait to see if the symptoms will go away. Get medical help right away. Call your local emergency services (911 in the [place] Do not drive yourself to the hospital. Summary Benign prostatic hyperplasia (BPH) is an enlarged prostate that is caused by the normal aging process and not by cancer. An enlarged prostate can press on the urethra. This can make it hard to pass urine. This condition is part of a normal aging process and is more likely to develop in men over the age of 50 years. Get help right away if you suddenly cannot urinate. This information is not intended to replace advice given to you by your health care provider. Make sure you discuss any questions you have with your health care provider. Document Released: 08/03/2006 Document Revised: 06/28/2019 Document Reviewed: 09/07/2017 [employer] Patient Education 2020 [employer]. Follow Up Care 04/15/2022 15:48:55 With:Diego RICKS, OUSMANE Bell, URO Address: When: Unknown [facility] 08-18-2022 Hospital Discharge instructions Patient Education 04/03/2022 11:56:26 EU - Cystoscopy Discharge Instructions (Custom) Cystoscopy Voiding after the procedure: there may be some pain, burning, urgency, frequency and blood tinged urine following the procedure. These symptoms usually resolve within 2-5 days. Drink the amount of fluid it takes to keep the urine pink to yellow or clear in color. Drinking enough water and fluids will help to ease any discomfort after your procedure. If you are having problems that seem out of the ordinary, please call. If unable to contact your physician and you feel it is an emergency, go to the nearest emergency room or call 911 Diet you may resume your normal diet. Activity you may resume your normal activities Call if you have a fever over 100 degrees. Follow Up Care 04/01/2022 15:34:16 With:Patsy Seals Address: [facility] [address], [place] [address]- Business (1) When:2 to 4 weeks Comments:Office visit to discuss and schedule Urolift. 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 No new symptoms--persistent stable fatigue. He underwent radiofrequency ablation of kidney stone by Dr. Seals at [place] on 01/14/2022 without complications. Sent off Revlimid since December 12, 2021 due to cytopenias. Otherwise no changes in clinical history. He is due for his second shingles shot and since he is otherwise stable with no recent infections he can receive his second dose. He did require transfusion of 2 units packed red blood cells for hemoglobin 6.7 on 01/23/2022. Hemoglobin has now improved to normal methylmalonic acid and homocystine, elevated iron saturation 72% and ferritin elevated to 663. Erythropoietin level was also elevated to 547.7 so he is not a candidate for erythrocyte stimulating agents. At this time I will continue to hold Revlimid since he has no evidence of M spike on his most recent serum protein electrophoresis or serum or urine immunofixation. [place]/lambda light chain ratio continues to decline to now 1.31 (normal). Due to his recent anemia we will hold his Revlimid another month and repeat his CBC in 1 month. If hemoglobin improving, we may consider resuming his maintenance Revlimid to 5 mg every other day. Next follow- up in April 2022 for repeat bone marrow biopsyin interventional radiology for specimen to be sent for minimal residual diseasetesting. I will follow-up with him 3 weeks thereafter for review of symptoms and bone marrow results, sooner as needed. 01/02/2022: Patsy and his are here for 3 month followup visit. She raised most of the concerns regarding worsening fatigue. He has been off He underwent a painful bone marrow by [facility] with Dr. Hall with nondiagnostic specimen. Dr. Hall recommended repeat bone marrow in the fall with MRD testing (we will set up with IR). I reviewed his f/u monoclonal gammopathy testing showing asymmetric gamma but no M-spike. Normal kappa/lambda light chain ratio. Hemoglobin declined to 8--elevated iron saturation and ferritin. I will check methylmalonic acid and homocysteine, erythropoietin, and may consider adding erythropoietin. Continue f/u with Dr. Crain. 10/03/2021: Patsy is here for 4-month follow-up of light chain myeloma. His brought me a thorough list of his recent hospitalizations since early August 2021. Recurrent weakness and dizziness as per chief complaint. --August 20 he was treated for UTI at [facility] ER, thenadmitted August 24 to [place] with dehydration and urosepsis with discharge August 29. 09/05/[address] Heath for continued antibiotics with Bactrim DS. Urine also returned positive for candidiasis and he was treated with fluconazole daily. He stopped his hydralazine and Lasix. --09/17/2021: He returned for labs and skeletal survey at [facility] and his potassium on blood work was markedly elevated. We contacted him and advised ER evaluation at [facility]. His potassium returned at 7.3 and he required hydration, calcium gluconate, insulin with bicarb, and had a negative Covid test. He was admitted and had unremarkable renal ultrasound, transfused 1 unit of blood for hemoglobin 7.3. Potassium and creatinine normalized and he was discharged home on 09/19/2021. Since that time he has had some improvement of energy but still has poor appetite and mild weakness. No fever, chills, or sweats. I will have him follow-up with nephrology and Dr. Heath for management of his potassium and creatinine. He denies any abdominal pain or bone pain and is otherwise compliant with maintenance Revlimid 5 mg daily. --Labs from 09/16/2021 did show mild elevation in creatinine 3.9 likely due to his electrolyte disturbances. His creatinine had increased from 1.29-2.11 likely due to dehydration. Serum M spike was not observed, but urine M spike was detected at 6.9. Urine immunofixation did not show monoclonal population and his urine M spike is likely due to his recent urinary infections. Serum kappa and lambda light chains were both elevated to 62.1 and 38.7 respectively with normal kappa/lambda ratio 1.6. Skeletal survey did not show any lytic lesions. At this time I would not change his maintenance Revlimid. He is due for follow-up with Dr. Hall at [facility] hematology in late October for 1 year follow-up bone marrow biopsy for MRD status. His next follow-up with me will be in 3 months or sooner as needed. 05/30/2021: 3 month followup--still no new symptoms. We discussed coronavirus booster, then flu vaccine, then will have post transplant vaccines in June. He is off gabapentin and rash resolved. Tolerates Revlimid 5mg daily. Stable kappa/lambda ratio--no M-spike serum and urine testing. Quant immunoglobulins normal. I will f/u with myeloma labs in 3 months--CBC, CMP, SPEP, quant IGs, kappa/lambda light chains and beta2 microglobulin. He and his are in agreement with this plan. Low complexity visit. 02/27/2021: Here for 3-month follow-up, prior autologous stem cell transplant 07/25/2020. No limitations of daily activities--normal appetite, denies pain. Previously noted increased rash over bilateral antecubital areas, chest and back. He is titrating off gabapentin due to improving neuropathy and rash mildly better. Still on Revlimid 5mg daily. Uses benadryl prn for pruritus andrash. Will contact for post transplant vaccines. Stable kappa/lambda ratio--no M-spike serum and urine testing. Quant immunoglobulins normal. I will f/u with myeloma labs in 3 months--CBC, CMP, SPEP, quant IGs, kappa/lambda light chains and beta2 microglobulin. He and his are in agreement with this plan. 11/26/2020: Patsy is here for followup after D86 bone marrow biopsy at [facility] on 10/18/2020. No evidence of MRD--0.5% plasma cells andno clonal plasma cells suggestive of residual myeloma. Tolerating maintenance Revlimid 5mg daily well. No bone pain and normal renal function--Dr. Vincent hasreleased for annual nephrology followup. He is fully vaccinated for [id number] and I contacted Dr. Hall for coordination of post transplant vaccines. Stable neuropathy with gabapentin escalated to 400mg am, 300mg midday, 400mg pm. Continues followup with palliative medicine. He has phone f/u with Dr. Hall later this week. I will f/u with myeloma labs in 3 months--CBC, CMP, SPEP, quant IGs, kappa/lambda light chains and beta2 microglobulin. He and his are in agreement with this plan. 10/15/2020: Patsy is here with his for transfer of care after Melphalan 100mg/m2 autologous stem cell transplant D0 = 07/25/2021. He is now D+83 and oneweek ago, he saw Dr. Hall for survivorship visit. We reviewed his post transplant course and prior infections have now resolved. Blood counts have recovered and renal function at prior baseline. He has persistent neuropathy ongabapentin 200mg am, 100mg noon, 200mg pm. I'm setting him up for palliative consultation (previously followed by [facility]). He has a followup bone marrow biopsy scheduled with Dr. Hall in 3 days to document remission. I will discuss with him the plan after bone marrow biopsy--I briefly discussed Revlimidmaintenance with Mr. Mills and his . I will contact patient after bone marrow results to confirm plan with Dr. Hall and f/u with him in about 6 weeks with myeloma labs. 07/02/2020: Patsy has completed all of his pretransplant evaluation at [facility] including cardiology visit 11 9 which showed ejection fraction 60%. I have contacted Dr. Hall who noted that today will be his last day of Velcade and we will hold his daratumumab. He was to have a COVID-19 teston 07/11/2020 for planned stem cell collection 07/17 and transplant on 07/23. I clarified with the staff at [facility] this this may be performed at [facility] and forwarded to them. 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 His pain mainly in hips is about 3 out of 10 and controlled with Percocet. His next follow-up with me yeni be in about 4 months when he is post transplant although I am happy to see him sooner if new issues arise in his post transplant course that need to bemanaged closer to home. His most recent labs reveal improving hemoglobin (11.5), stable renal function (creatinine 1.35), normal calcium, and appropriateresponse of kappa light chain to now normal 18 with K/L ratio 2.02. 06/04/2020: Met with Dr. Hall on 05/24/2020 to discuss planning for high-dose chemotherapy peripheral blood stem cell transplant. He has now hemodialysis independent after daratumumab, dexamethasone, and Velcade with addition of Revlimid. Today he reports that he has had increased neuropathy symptoms in hisbilateral hands and feet with mild interference with activity (grade 2). We discussed a 25% dose reduction of Velcade on day 1, day 4, day 8, day 11 with current cycle of DVdR. He has some leg cramps at night, with normal magnesium, but low iron saturation noted--will start daily iron for symptoms. Otherwise heis tolerating therapy well and creatinine is now normal. He was given educationfor the transplant course and he is scheduled in late June after [facility] to proceed with stem cell collection and transplant. I will communicate with Dr. Hall regarding end of therapy and in 1 month I will see him with follow-up myeloma studies. No other new concerns today. 05/07/2020: Patsy is here for 1 month follow-up. Outpatient hemodialysis was stopped after 04/24/2020 due to excellent response. He was evaluated by Dr. Small at [facility] on 04/26/2020. Angel and his note that Dr. Hall felt that he was physiologically about 8 years younger than his chronologic age and would likely be transplant eligible if pretransplant work-updeems this feasible. He recommended continuing current daratumumab and Velcade with low-dose Revlimid. He will reevaluate patient in 1 month and likely plan admission for stem cell collection, then high-dose chemotherapy/autologous stem cell transplantation in June or July. The patient's was concerned that she did not understand much of the pretransplant teaching and I explained to her and Don the pathophysiology of plasma cells, light chains, his improving trend of renal function, goal of 90% kappa/lambda ratio reduction prior to transplant. We also refilled Revlimid 5 mg every other day, weekly vitamin D, and I am giving him a trial of tramadol 50 mg every 12 hours as Tylenol is not effective for his pain and we are avoiding NSAIDs and additional aspirin. He otherwise has no toxicities of chemotherapy. He sees Dr. Heath for follow-up tomorrow and maintains insulin with stabilization of his blood sugars following with diabetes management clinic. I will see him in follow-up with myeloma labs in 1 month plan end of therapy prior to transplant. 04/09/2020: Here for one month f/u with his . He continues outpatient hemodialysis on Thursday//Saturdays. He notes fatigue, but generalized edema remarkably improved with no significant pain. I reviewed his M-spike, IgGand kappa light chains with K/L ratio that has remarkably improved (>90% reduction past month). [place] light chains decreased from 12,000 to 42. Only concern is significant hyperglycemia with dexamethasone. 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 I will coordinate evaluation by Dr. Quique Hall for HDC/autologous stem cell transplantevaluation and hold on adding Revlimid since significant response of light chains noted. I contacted Dr. Rahman of nephrology to consider reducing hemodialysis days to twice weekly. I will send myeloma labs in about 4 weeks, have him see Dr. Hall and f/u with me the following week to review plan and determine whether plan for HDC/stem cell transplant. 03/14/2020: Patient presents with his today after initiating both outpatienthemodialysis on Thursday//Saturdays and initial cycle of daratumumab, bortezomib, dexamethasone with potential addition of Revlimid after 1 month if less than optimal response. He received his first cycle of combination chemotherapy 03/12/2020. --Patient tolerated initial daratumumab infusion reasonably well with brief infusion reaction (dizziness and mild wheezing) that was treated with diphenhydramine, steroids, albuterol, and Demerol for rigors. He completed remaining infusion in an outpatient bed on the inpatient [facility] Thursday and we anticipate further weekly daratumumab infusions as an outpatient. --Patient was seen at dialysis today and noted to have hemoglobin 6.8. He will receive 1 unit of packed red blood cells prior to Velcade today for scheduled tomorrow. His was unable to be present at the hospital at time of diagnosis and his initial bone marrow biopsy was performed on 03/08/2020. She requests evaluation with him today for extensive questions regarding his care. She reported her session and requested a copy of this progress note following our visit today. 1. She asked if all the tests at the hospital returned. We discussed the teststhat are used to follow-up myeloma including his elevated IgG, elevated free kappa light chains, and elevated M spike. We discussed in detail the pathophysiology of myeloma but she felt very anxious and overwhelmed and I reassured her that we will readdress this at further follow-up visits. 2. Patient had a metastatic bone survey showing no areas of lytic disease or pathologic fractures. We discussed CRAB criteria for multiple myeloma diagnosisand that he meets criteria of R renal and A anemia, but not elevated calcium or bone disease (C and B). She specifically asked is stage of multiple myeloma andwe noted that he still will require beta-2 glycoprotein (ISS) but is most consistent with stage III. We are still awaiting his chromosomal abnormalities by fluorescence in situ hybridization and will readdress at next follow-up visitwith his final bone marrow biopsy results (this study was only performed 03/08/2020). 3. She wanted to know if his testing showed cancer elsewhere. We discussed that since metastatic bone survey showed more lytic areas I do not feel that F-18 PET is high priority but this may be ordered at some point to assess for any asymptomatic bony metastatic disease. 4. He has recently had elevated blood sugars and does not have a history of diabetes, but we discussed that with weekly steroids he should likely have additional insulin on his steroid days. I offered that this could be managed byhis primary physician Dr. Heath and he could be referred for diabetes management clinic. 5. We reiterated multiple times that his schedule may be variable. He will typically have a long infusion on Mondays with daratumumab but initially he willpresent twice weekly for Velcade injection on Mondays and . This will change during the course of his therapy and he should refer to his calendar. 6. We discussed not taking additional vitamins unless approved by nephrology. I also discussed potentially adding Revlimid and we will address at future visits if this is needed based on his follow-up labs ordered 04/02/2020. His medications may be filled either locally or with his prescription plan, but manyof these will be ordered by nephrology. He is to continue vitamin D2 as recommended by nephrology. Blood pressure medications will be regulated by primary care and nephrology. 7. We discussed concerning side effects, most commonly hyperglycemia, insomnia,risk of thrombosis (recently was diagnosed with left superficial thrombosis of the left upper extremity and additional heparin is given with his dialysis), andneuropathy with Velcade. Patients do not tend to have significant nausea or possible appetite (effects of dexamethasone increase his appetite). I cannot recommend medical marijuana and would discuss this with his pre coder whetherthis would interfere with dialysis. We will also follow closely for cytopenias and reviewed infectious precautions. He has a son from [place] who plans to visit on Thursday and we discussed COVID-19 testing appropriate social isolation protocols. 8. We discussed whether he was eligible for transplant and this will be evaluated based on his response and overall health in likely 3 to 4 months afterinitiation of therapy. We did not discuss autologous stem cell transplant in detail. We did discuss that although this is not curative therapy, many patients are controlled with medication over longer periods of time (often 5 to 6 years) with appropriate therapy. It is an aggressive cancer due to its significant infectious risk and association with renal failure. 9. Exercise may be performed as tolerated but should be done in moderation and likely we should wait a few weeks for more significant exercise given his recentdialysis and initiation of chemotherapy. I did not specifically address his diet but he may address this with our [facility] nutrition team. He will also receivechemotherapy class with our nurses in the infusion center. PRELIMINARY HISTORY (from initial consult 03/08/2020): This is a now 77-year-old male who was transferred from [place] emergency room by [facility] due to critical potassium 8.7 with elevated creatinine 11.2 and BUN 82 on 03/04/2020. We do not have any recent blood work for comparison but hehad normal creatinine in 2012. He was urgently treated for his hyperkalemia anddialysis was arranged emergently by nephrology team. He has now stabilized on dialysis and had extensive work-up for etiology of his acute renal failure with severe anemia felt to be due to anemia of renal insufficiency. Iron studies returned normal with ferritin 160, but B12 low at 84 and folate low normal at 5.2. He is receiving appropriate B12 repletion. The patient reports that he has had a prolonged period of fatigue up to a year and has decreased appetite with subjective weight loss. He denies any significant bone pain other than pain in his right shoulder and has no prior falls or recurrent back pain. He had a shoulder film showing labral pathology of the joint but no fracture or dislocation. Myeloma labs were sent showing M spike 3.6 g/dL with serum immunofixation showing IgG kappa light chain specificity. Serum IgG markedly elevated at 5312 and free kappa light chain 12,649.9 with normal free lambda light chain 11.94 free kappa/lambda ratio 1063. Hepatitis A, B, and C serologies were all negative and COVID-19 screening was negative. LORE, c-ANCA, p-ANCA, anti-GBM, and antimyeloperoxidase were all negative. Clinically the patient has multiple myeloma and I explained that we needed to proceed with bone marrow aspiration and biopsy to provide baseline for diagnosis and to expedite chemotherapy with an aggressive regimen to reduce his light chains. I will review information with him at noon today around the time of his bone marrow biopsy for combinationdaratumumab 16 mg/kg IV weekly, bortezomib 1.3 mg/kg subcu twice weekly, dexamethasone 40 mg weekly, and Revlimid 25 mg p.o. daily days 1 through 14 of each 21-day cycle. Revlimid will be ordered through a special pharmacy. We will schedule his infusions as an outpatient early next week on his nondialysis days. Written literature for these medications will be provided and he may signinformed consent so that we may order this regimen as an outpatient. The patient's is not with him today but has been treated by me for breast cancer in the past and had multiple questions. We would like to arrange a time for her to be available to ask questions and be present for chemo consent, possibly around noon today. This will need to be coordinated with nursing staffdue to COVID-19 visitor restriction policy. - Summary of Therapies Summary of Therapies: Cycle 1 day 1 03/12/2020: Daratumumab 16 mg/kg IV weekly, bortezomib 1.3 mg/kg subcu twice weekly, dexamethasone 40 mg weekly. 04/09/2020: Under direction of Dr. Hall, in early April we added Revlimid 5 mg every other day of each 21-day cycle with cycle 2 due to excellent response of kappa light chains. 04/26/2020: Malignant hematology eval for possible high-dose chemotherapy/autologous stem cell transplant. He was able to stop dialysis 04/24/2020. Given Velcade only (hold daratumumab) on 07/02/2020. 07/25/2020: Melphalan 100mg/m2 IV day 0 autologous stem cell transplant 07/25/2020at [facility]. 11/26/2020: Follow-up bone marrow aspiration and biopsy 10/18/2020 for MRD evaluation shows hypocellular marrow with 0.5% plasma cells, no clonal population by flow cytometry but 0.03% kappa light chain skewing. Started Revlimid 5 mg daily for maintenance therapy early October 2020. Nondiagnostic bone marrow for MRD in spring 2021 at . Planned follow-up bone marrow biopsy for MRD at [facility] fall 2021. -- 02/05/2022: Revlimid on hold since 12/12/2021 for cytopenias. Continue to follow off Revlimid 1 more month, then if anemia improves we may resume 5 mg every other day maintenance. ROS Details: All systems reviewed & no additional complaints except as documented Subjective/ROS - Narrative: CONSTITUTIONAL: Prior worsening fatigue since HD Melphalan/ASCT 07/2020, negative for fever or night sweats. Post-transplant infections as per HPI, now resolved. HEAD AND NECK: Stable vision since control of his diabetes mellitus. Negative for changes in hearing. Negative for mouth ulcers, nasal congestion and nasal drainage. PULMONARY: Negative for chest pain, cough and dyspnea. CARDIOVASCULAR: Negative for claudication and irregular heartbeat/palpitations. Resolved edema since diagnosis, now off dialysis. GASTROINTESTINAL: Negative for abdominal pain, constipation, diarrhea, nausea orvomiting. Improved appetite and 20 kg weight loss after starting dialysis, chemotherapy, and transplant for light chain nephropathy. 11/2020--returned to baseline weight pretransplant. GENITOURINARY: Negative for dysuria and hematuria. Improved urinary output, diagnosed in February 2020 with renal failure requiring dialysis--off dialysis 04/24/2020. Prior nephrolithiasis previously followed by Dr. Seals--recent ESWL 01/14/2022 at [place]. ENDOCRINE: Negative for cold intolerance and heat intolerance. Improvement of prior hyperglycemia with home blood sugars in the 100-200s on supplemental insulin glargine. CENTRAL NERVOUS SYSTEM: Negative for gait disturbance and headache. No focal neurologic deficits or history of stroke. 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 PSYCHIATRIC: Negative for anxiety or depression. DERMATOLOGICAL: Positive for pruritus and rash as per HPI. Negative for suspicious skin lesions. MUSCULOSKELETAL: Resolved back pain and and thigh pain. Resolved leg cramps, improved neuropathy. No longer on ferrous sulfate post transplant. HEMATOLOGICAL: Negative for bleeding and easy bruising. Recent transfusion 2 units packed red blood cells 01/23/2022 for hemoglobin 6.7. His only transfusion was other than 2 units red cells in October 2021. Positive for left basilic vein thrombus on Doppler ultrasound 03/12/2020--no longer requires anticoagulation. ALLERGY: Negative for environmental allergies and food allergies. [facility] - History Attestation statement: The following information was validated with the patient. Source: Old Records Reviewed - Medical History Medical History: Medical History (Last Reviewed 02/06/22 @ 10:13 by Brook Huddleston MD) Apnea Arthritis Diabetes mellitus, type 2 Hyperlipidemia Hypertension Kidney stones Multiple myeloma Skin cancer - Family History Family History: Family History (Last Reviewed 02/06/22 @ 10:13 by Brook Huddleston MD) Sister Myocardial infarct Mother Myocardial infarct Father Skin cancer - Social History Smoking Status: Never smoker Tobacco Type: cigarettes Substance Use Type: None Home Medications & Allergies Allergies gabapentin Allergy (Verified 02/05/22 11:48) Rash Home Medications famotidine 20 mg tablet 20 mg PO DAILY #30 tab 03/10/20 [Rx Confirmed 02/05/22] insulin glargine 100 unit/mL (3 mL) subcutaneous pen (Lantus Solostar U-100 Insulin) 25 unit SUBCUT DAILY 04/27/20 [History Confirmed 02/05/22] insulin lispro 100 unit/mL subcutaneous pen (Humalog KwikPen (U-100) Insulin) 6 - 16 unit SUBCUT DIRECTED 04/27/20 [History Confirmed 02/05/22] atorvastatin 20 mg tablet 20 mg PO DAILY 10/15/20 [History Confirmed 02/05/22] cholecalciferol (vitamin D3) 50 mcg (2,000 unit) capsule (Vitamin D3) 50 mcg PO DAILY 10/15/20 [History Confirmed 02/05/22] aspirin 81 mg tablet,delayed release 81 mg PO DAILY 11/26/20 [History Confirmed 02/05/22] metformin 500 mg tablet 1,000 mg PO BID 11/26/20 [History Confirmed 02/05/22] cyanocobalamin (vitamin B-12) 1,000 mcg tablet (Vitamin B-12) 1,000 mcg PO DAILY10/03/21 [History Confirmed 02/05/22] acyclovir 400 mg tablet 400 mg PO BID 60 Days #120 tab 12/26/21 [Rx Confirmed 02/05/22] lenalidomide 5 mg capsule (Revlimid) 5 mg PO DAILY 28 Days #28 cap 01/07/22 [Rx Confirmed 02/05/22] terazosin 10 mg capsule 10 mg PO DAILY 02/05/22 [History Confirmed 02/05/22] Objective - Height/Weight Height/Weight: Height 5 ft 10 in Weight 92.986 kg BSA for Today's Weight 2.10 - Vital Signs Vital Signs: 02/05/22 11:50 Temperature 97.7 F Pulse Rate [Monitor] 87 Respiratory Rate 16 Blood Pressure [Left Arm] 144/71 H 02 Sat by Pulse Oximetry 99 - Pain Right Hip Pain Intensity: 5 Generalized Pain Intensity: 1 Left Upper Arm Pain Intensity: 4 Physical Exam Narrative: CONSTITUTIONAL: The patient is in no acute distress. Recent increase in fatigue. HEAD / FACE: Normocephalic. EYES: Pupils are equal and reactive to light. Conjunctivae and lids are benign in appearance. Ocular movement intact. EARS: Hearing grossly intact. NOSE / MOUTH / THROAT: Nose, mouth, tongue and oropharynx are benign in appearance. No signs of inflammation. NECK / THYROID: Neck is supple. Thyroid is symmetrical, without thyromegaly, masses or palpable nodules. LYMPHATIC: No palpable cervical, supraclavicular, axillary, or inguinal adenopathy. RESPIRATORY: Normal to inspection. Lungs clear to auscultation and percussion. No wheezing, rales, rhonchi or rubs. Normal effort. CARDIOVASCULAR: Regular rate and rhythm. No murmurs, gallops, or rubs. VASCULAR: Carotid, radial, femoral and pedal pulses present bilaterally. No bruits. ABDOMEN: Bowel sounds normoactive. Soft, nontender and non-distended. No hepatosplenomegaly. No masses. GENITOURINARY: No CVA tenderness. No suprapubic fullness or tenderness. No groinadenopathy. No evidence of hernias. INTEGUMENTARY: The skin is unremarkable. Resolved antecubital/chest rashes. No suspicious lesions BACK / SPINE: The back is nontender. No step-off deformity. No CVA tenderness. MUSCULOSKELETAL: Normal musculature, no joint deformities or abnormalities, normal range of motion for all four extremities. EXTREMITIES: No longer has bilateral lower extremity edema; no cyanosis or clubbing. No Vitor sign. NEUROLOGICAL: Alert and oriented. Cranial nerves intact. No gross motor or sensory deficits. PSYCHIATRIC: No anxiety or evidence of depression. - ECOG Performance Status ECOG Score: 1 Results - Labs Labs: Diagram of Most Recent CBC and CMP 02/05/22 11:25 12/26/21 16:01 Labs - Last 7 Days 02/05/22 11:25: Corrected WBC 3.6 L, Uncorrected WBC Count 3.6 L, RBC 2.64 L, Hgb 9.3 L, Hct 27.6 L, MCV 104.3 H, MCH 35.3 H, MCHC 33.9, RDW 24.8 H, Plt Count90 L, MPV 8.4, Neut % (Auto) 66.4, Lymph % (Auto) 21.2, [place] % (Auto) 6.9, Eos %(Auto) 5.1, Baso % (Auto) 0.4, Neut # (Auto) 2.4, Lymph # (Auto) 0.8 L, [place] # (Auto) 0.3, Eos # (Auto) 0.2, Baso # (Auto) 0.0, Nucleated RBC % (auto) 0.1 - Impressions No imaging for review. We do not have records from his recent ESWL at [place]. 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 He had marked elevation in IgG kappa on initial laboratory work-up for renal failure in February 2020. He has remained hemodynamically stable and I discussed in detail with the patient the pathophysiology of multiple myeloma and associated injury to kidneys, persistentanemia, bone disease, and potential hypercalcemia (we do not see hypercalcemia in this patient). He consented to inpatient bone marrow biopsy 03/08/2020 which was diagnostic for multiple myeloma--70% plasma cells without amyloid depositionidentified in small marrow specimen. Normal baseline skeletal survey. I reviewed pathophysiology of myeloma, results of bone marrow biopsy, skeletal survey, and myeloma labs with the patient and his . Patsy consented to begin first cycle Daratumumab, Velcade, and dexamethasone on03/12/2020--other than infusion reaction from first Daratumumab, improved with symptomatic therapy. I reviewed his case with Dr. Quique Hall of Malignant Hematology--added Revlimid 5mg qod following significant reduction of light chains in early April 2020. 05/07/2020: As per HPI, Angel and his met with Dr. Hall 04/26/2020 with preparation for likely high-dose chemotherapy/autologous peripheral stem cell transplant if he meets criteria based on cardiopulmonary work-up. He has had greater than 90%. The patient was able to discontinue hemodialysis on 04/24/2020 and has not had any recurrence of edema with now improved renal function, creatinine clearance now 53. --I will continue current therapy with further evaluation by Dr. Hall in 1 month for planning his HDC/autologous stem cell transplant. We will send repeatmyeloma labs (SPEP, IgG, kappa/lambda light chains) in 4 weeks with f/u visit with me the following week to review results as well as evaluation with Dr. Hall for possible stem cell transplant. 06/04/2020: Tolerating chemotherapy well other than increasing neuropathy of hands and feet. Dose reduced Velcade by 25% next cycle. Added daily ferrous sulfate. --He was referred to diabetes management clinic and sees Dr. Heath with regularfollow-up by Dr. Rahman since he is off dialysis. Diabetes control improved. 07/02/2020: Last dose of Velcade today. Neuropathy is stable and pain is well controlled. He will have COVID-19 test on 07/11/2020 for planned admission for stem cell collection on 07/17/2020 then high-dose melphalan followed by peripheral blood stem cell transplant day 0 scheduled 07/23/2020. His next follow-up with me will be in about 4 months after he is completed day 100 transplant follow-up. He may return sooner as needed. 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 Melphalan 100mg/m2 + ASCT Day 0 07/25/2020. 11/26/2020: Followup of [facility] end of therapy bone marrow biopsy 10/18/2020--no minimal residual disease. Started Revlimid maintenance 5mg daily in early October2020. 02/27/2021: No new symptoms other than rash. Slow improvement of neuropathy--titrating off gabapentin with palliative medicine. Benadryl for rash. Continue Revlimid 5mg daily. He will be due for first post transplant vaccines sooner--will check schedule with . 05/30/2021: Rash and neuropathy improved. Tolerating Revlimid well. Discussedcoronavirus booster and influenza vaccines. Post transplant vaccines due in 07/2021. No M-spike and normal kappa/lambda ratio. 10/03/2021: Multiple admissions for hyperkalemia, renal insufficiency due to dehydration, anemia requiring transfusion. Still feels weak and dizzy and his electrolyte disorders are being managed by primary care. No detectable M spike's and kappa/lambda light chain ratio is normal with elevated levels of both likely due to recent infections. Skeletal survey without new lytic lesions. He is due for MRD bone marrow follow-up with Dr. Hall next month. For now continue Revlimid 5 mg daily. 01/02/2022: Patient presents with his who is concerned with increasing fatigue. He has had a decline in his hemoglobin to 8 although his renal function is actually improved from prior values with creatinine clearance of 50. We sent serum iron profile showing increased iron stores with iron saturation 72% and ferritin 663. Homocystine was normal methylmalonic acid is pending. [place] also send an erythropoietin level to see if there may be a benefit to adding erythropoietin for anemia of chronic kidney disease. He will continue to follow with Dr. Meade. He still has no M spike on serum protein electrophoresis and normal kappa/lambda light chain ratio. MRD testing at [facility] was nondiagnostic and he will have repeat bone marrow biopsy here with me to send MRD testing. Next followup with me in 3 months for exam and f/u myeloma labs. We will coordinate his bone marrow biopsy at that time. He will continue follow-up by nephrology for chronic kidney disease although his prior hyperkalemia has improved on recent labs. May return sooner if new issues arise. 02/05/2022: Patient has persistent fatigue although did require transfusion 2 weeks ago for hemoglobin 7.6. Iron studies show increased iron saturation and ferritin with normal methylmalonic acid and homocystine. Erythropoietin level is elevated therefore he does not have an indication for erythrocyte stimulating agents. Myelosuppression is likely due to prior Revlimid and I will keep him off therapy for another 1 month with repeat CBC at that time. If anemia is improving I will resume Revlimid at 5 mg every other day maintenance therapy. He will be scheduled for MRD bone marrow at [place] interventional radiology in April 2022, then follow-up with me with review of myeloma labs 3 months after this procedure. He still has undetectablemonoclonal spike and normal kappa/lambda light chain ratio on most recent labs. Renal function is improving since ESWL at [place] in late December. This is a moderate complexity visit over 35 minutes for symptom and lab review, address multiple comorbidities, and followup plan with patient and his . (2) Anemia of renal disease Hemoglobin has decreased to 8 and iron stores show increased iron saturation andferritin. He no longer takes supplemental iron but has ongoing B12 repletion 1 mg p.o. daily. Methylmalonic acid is pending to assess whether B12 repletion isadequate. We are also sending an erythropoietin level and if methylmalonic acidis normal, we will initiate erythropoietin therapy for anemia of chronic kidney disease. I will update nephrology if decision to add erythrocyte stimulating agent therapy. I will contact him with these results and coordinate repletion therapy. In addition the patient is on chronic Revlimid which it is myelosuppressive. -- Revlimid has been on hold since 12/12/2021. He did require transfusion in early January and has elevated iron saturation and ferritin, normal methylmalonic acid and homocystine, and increased erythropoietin level. We will continue to hold Revlimid. If he has increasing transfusion requirement we may perform bonemarrow biopsy prior to scheduled MRD bone marrow in April 2022 to be performed in interventional radiology. (3) History of hemodialysis Initiated inpatient hemodialysis 02/2020, then transitioned to outpatient hemodialysis 3 times weekly Thursday//Thursday schedule. Chemotherapy given Thursday/. 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 He was actually able to stop dialysis within 2 months with the last session 04/24/2020 as noted above. Now 21 months after Melphalan 100mg/m2 + autologous PBSCT given his significant response to initial myeloma directed therapy. Continued f/u with nephrology for stage III chronic kidney disease/resolved hyperkalemia. (4) Steroid-induced diabetes mellitus Qualifiers: Encounter type: subsequent encounter Qualified Code(s): E09.9 - Drug or chemical induced diabetes mellitus without complications; T38.0X5D - Adverse effect of glucocorticoids and synthetic analogues, subsequent encounter Patsy had an excellent response of light chains but was noted to have significant hyperglycemia 300-500 fasting blood sugars. He was referred to diabetes management clinic with addition of insulin therapy that has significantly improved control of his blood sugars. Patient also had remarked on some blurred vision that improved with control of blood sugars. Continue follow-up of blood sugars during admission for transplant in early July. 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 Resumed low dose metformin and titrating down insulin--directed by his primary physician. (5) B12 deficiency Patient was found to have B12 deficiency and was been placed on daily B12 prior to hospital discharge. We continued weekly IM B12 for 8 weeks with his myeloma regimen. Hemoglobin is improved on Aranesp and weekly B12, then changed to monthly maintenance therapy. He has not required further blood transfusions since 03/15/2020. Follow- up methylmalonic acid on 04/30/2020 was normal showing adequate replacement. He will continue monthly IM B12 and weekly vitamin D2 therapy 50,000 units orally for low 25 hydroxy vitamin D stores. He may take supplemental calcium once daily. -- Repeat methylmalonic acid normal and will continue current B12 dosing (6) Encounter for chemotherapy management Started cycle 1 day 1 03/12/2020: Daratumumab 16 mg/kg IV weekly, bortezomib 1.3 mg/kg subcu twice weekly, dexamethasone 40 mg weekly. We added Revlimid 5 mg every other day of each 21-day cycle with cycle 2 due to excellent reduction of kappa light chains (recommended by Dr. Hall malignanthematology). 06/04/2020: 25% DR Bortezomib (100% all other meds) due to worsening neuropathy. Last dose of bortezomib 07/02/2020 and holding daratumumab per request of Dr. Hall. 07/25/2020: Melphalan 100mg/m2 + autologous PBSCT 10/18/2020: Started Revlimid 5 mg daily maintenance after bone marrow biopsy negative for MRD. Repeat MRD bone marrow at [facility] in 3 months because spring 2021 bone marrow at was nondiagnostic. -- Revlimid on hold 12/12/2021 due to myelosuppression. Continue to hold at 02/05/2022 follow-up visit. - Chemo Plan Chemo Plan (Dose, Rate, Freq): 09/25/2019: Melphalan 100mg/m2 + autologous PBSCT-->10/2020 Revlimid 5mg daily maintenance after MRD bone marrow biopsy. On hold since 12/12/2021 due to anemia. Goal of Treatment: Control - Time with Patient Time Spent with Patient (Follow Up Visit): 35 minutes - Review monoclonal labs and manage worsening anemia. Coordination of Care & Counseling Time: Greater than 50% of time spent with patient was for coordination of care (as documented) and [id number] counseling of patient and/or family. Dictated By: Brook Huddleston MD DD/ [id number] Signed By: <Electronically signed by MD Brook Huddleston> 02/06/22 [address] [facility] Work Phone: [phone] 155-976606-23-2022 Progress note Author Brook Huddleston [facility] February 06, 2022 2:07pm Note Date/Time February 05, 2022 11:5 4am [facility] [place] [id number] Hem/Onc Follow Up Note - OP Signed Patient: Patsy Mills MR#: [id number] : 1945 Acct:[id number] Age/Sex: 77 / M Type: REG RCR Copies to: MD Helen Jaramillo MD~ Subjective Date/Time of Service: Date of Service: 02/05/2022 Time of Service: 11:53 Chief Complaint: Patient is here today for 1 month follow up visit for light neuropathy due to multiple myeloma and go over labs HPI: 02/05/2022: Patsy and his present for 1 month follow-up. No new symptoms--persistent stable fatigue. He underwent radiofrequency ablation of kidney stone by Dr. Seals at [place] on 01/14/2022 without complications. Sent off Revlimid since December 12, 2021 due to cytopenias. Otherwise no changes in clinical history. He is due for his second shingles shot and since he is otherwise stable with no recent infections he can receive his second dose. He did require transfusion of 2 units packed red blood cells for hemoglobin 6.7 on 01/23/2022. Hemoglobin has now improved to normal methylmalonic acid and homocystine, elevated iron saturation 72% and ferritin elevated to 663. Erythropoietin level was also elevated to 547.7 so he is not a candidate for erythrocyte stimulating agents. At this time I will continue to hold Revlimid since he has no evidence of M spike on his most recent serum protein electrophoresis or serum or urine immunofixation. [place]/lambda light chain ratio continues to decline to now 1.31 (normal). Due to his recent anemia we will hold his Revlimid another month and repeat his CBC in 1 month. If hemoglobin improving, we may consider resuming his maintenance Revlimid to 5 mg every other day. Next follow- up in April 2022 for repeat bone marrow biopsyin interventional radiology for specimen to be sent for minimal residual diseasetesting. I will follow-up with him 3 weeks thereafter for review of symptoms and bone marrow results, sooner as needed. 01/02/2022: Patsy and his are here for 3 month followup visit. She raised most of the concerns regarding worsening fatigue. He has been off He underwent a painful bone marrow by [facility] with Dr. Hall with nondiagnostic specimen. Dr. Hall recommended repeat bone marrow in the fall with MRD testing (we will set up with IR). I reviewed his f/u monoclonal gammopathy testing showing asymmetric gamma but no M-spike. Normal kappa/lambda light chain ratio. Hemoglobin declined to 8--elevated iron saturation and ferritin. I will check methylmalonic acid and homocysteine, erythropoietin, and may consider adding erythropoietin. Continue f/u with Dr. Crain. 10/03/2021: Patsy is here for 4-month follow-up of light chain myeloma. His brought me a thorough list of his recent hospitalizations since early August 2021. Recurrent weakness and dizziness as per chief complaint. --August 20 he was treated for UTI at [facility] ER, thenadmitted August 24 to [place] with dehydration and urosepsis with discharge August 29. 09/05/[address] Heath for continued antibiotics with Bactrim DS. Urine also returned positive for candidiasis and he was treated with fluconazole daily. He stopped his hydralazine and Lasix. --09/17/2021: He returned for labs and skeletal survey at [facility] and his potassium on blood work was markedly elevated. We contacted him and advised ER evaluation at [facility]. His potassium returned at 7.3 and he required hydration, calcium gluconate, insulin with bicarb, and had a negative Covid test. He was admitted and had unremarkable renal ultrasound, transfused 1 unit of blood for hemoglobin 7.3. Potassium and creatinine normalized and he was discharged home on 09/19/2021. Since that time he has had some improvement of energy but still has poor appetite and mild weakness. No fever, chills, or sweats. I will have him follow-up with nephrology and Dr. Heath for management of his potassium and creatinine. He denies any abdominal pain or bone pain and is otherwise compliant with maintenance Revlimid 5 mg daily. --Labs from 09/16/2021 did show mild elevation in creatinine 3.9 likely due to his electrolyte disturbances. His creatinine had increased from 1.29-2.11 likely due to dehydration. Serum M spike was not observed, but urine M spike was detected at 6.9. Urine immunofixation did not show monoclonal population and his urine M spike is likely due to his recent urinary infections. Serum kappa and lambda light chains were both elevated to 62.1 and 38.7 respectively with normal kappa/lambda ratio 1.6. Skeletal survey did not show any lytic lesions. At this time I would not change his maintenance Revlimid. He is due for follow-up with Dr. Hall at [facility] malignant hematology in late October for 1 year follow-up bone marrow biopsy for MRD status. His next follow-up with me will be in 3 months or sooner as needed. 05/30/2021: 3 month followup--still no new symptoms. We discussed coronavirus booster, then flu vaccine, then will have post transplant vaccines in June. He is off gabapentin and rash resolved. Tolerates Revlimid 5mg daily. Stable kappa/lambda ratio--no M-spike serum and urine testing. Quant immunoglobulins normal. I will f/u with myeloma labs in 3 months--CBC, CMP, SPEP, quant IGs, kappa/lambda light chains and beta2 microglobulin. He and his are in agreement with this plan. Low complexity visit. 02/27/2021: Here for 3-month follow-up, prior autologous stem cell transplant 07/25/2020. No limitations of daily activities--normal appetite, denies pain. Previously noted increased rash over bilateral antecubital areas, chest and back. He is titrating off gabapentin due to improving neuropathy and rash mildly better. Still on Revlimid 5mg daily. Uses benadryl prn for pruritus andrash. Will contact for post transplant vaccines. Stable kappa/lambda ratio--no M-spike serum and urine testing. Quant immunoglobulins normal. I will f/u with myeloma labs in 3 months--CBC, CMP, SPEP, quant IGs, kappa/lambda light chains and beta2 microglobulin. He and his are in agreement with this plan. 11/26/2020: Patsy is here for followup after D86 bone marrow biopsy at [facility] on 10/18/2020. No evidence of MRD--0.5% plasma cells andno clonal plasma cells suggestive of residual myeloma. Tolerating maintenance Revlimid 5mg daily well. No bone pain and normal renal function--Dr. Vincent hasreleased for annual nephrology followup. He is fully vaccinated for [id number] and I contacted Dr. Hall for coordination of post transplant vaccines. Stable neuropathy with gabapentin escalated to 400mg am, 300mg midday, 400mg pm. Continues followup with palliative medicine. He has phone f/u with Dr. Hall later this week. I will f/u with myeloma labs in 3 months--CBC, CMP, SPEP, quant IGs, kappa/lambda light chains and beta2 microglobulin. He and his are in agreement with this plan. 10/15/2020: Patsy is here with his for transfer of care after Melphalan 100mg/m2 autologous stem cell transplant D0 = 07/25/2021. He is now D+83 and oneweek ago, he saw Dr. Hall for survivorship visit. We reviewed his post transplant course and prior infections have now resolved. Blood counts have recovered and renal function at prior baseline. He has persistent neuropathy ongabapentin 200mg am, 100mg noon, 200mg pm. I'm setting him up for palliative consultation (previously followed by [facility]). He has a followup bone marrow biopsy scheduled with Dr. Hall in 3 days to document remission. I will discuss with him the plan after bone marrow biopsy--I briefly discussed Revlimidmaintenance with Mr. Mills and his . I will contact patient after bone marrow results to confirm plan with Dr. Hall and f/u with him in about 6 weeks with myeloma labs. 07/02/2020: Patsy has completed all of his pretransplant evaluation at [facility] including cardiology visit 11 9 which showed ejection fraction 60%. I have contacted Dr. Hall who noted that today will be his last day of Velcade and we will hold his daratumumab. He was to have a COVID-19 teston 07/11/2020 for planned stem cell collection 07/17 and transplant on 07/23. I clarified with the staff at [facility] this this may be performed at [facility] and forwarded to them. 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 His pain mainly in hips is about 3 out of 10 and controlled with Percocet. His next follow-up with me jaime be in about 4 months when he is post transplant although I am happy to see him sooner if new issues arise in his post transplant course that need to bemanaged closer to home. His most recent labs reveal improving hemoglobin (11.5), stable renal function (creatinine 1.35), normal calcium, and appropriateresponse of kappa light chain to now normal 18 with K/L ratio 2.02. 06/04/2020: Met with Dr. Hall on 05/24/2020 to discuss planning for high-dose chemotherapy peripheral blood stem cell transplant. He has now hemodialysis independent after daratumumab, dexamethasone, and Velcade with addition of Revlimid. Today he reports that he has had increased neuropathy symptoms in hisbilateral hands and feet with mild interference with activity (grade 2). We discussed a 25% dose reduction of Velcade on day 1, day 4, day 8, day 11 with current cycle of DVdR. He has some leg cramps at night, with normal magnesium, but low iron saturation noted--will start daily iron for symptoms. Otherwise heis tolerating therapy well and creatinine is now normal. He was given educationfor the transplant course and he is scheduled in late June after [facility] to proceed with stem cell collection and transplant. I will communicate with Dr. Hall regarding end of therapy and in 1 month I will see him with follow-up myeloma studies. No other new concerns today. 05/07/2020: Patsy is here for 1 month follow-up. Outpatient hemodialysis was stopped after 04/24/2020 due to excellent response. He was evaluated by Dr. Small at [facility] on 04/26/2020. Angel and his note that Dr. Hall felt that he was physiologically about 8 years younger than his chronologic age and would likely be transplant eligible if pretransplant work-updeems this feasible. He recommended continuing current daratumumab and Velcade with low-dose Revlimid. He will reevaluate patient in 1 month and likely plan admission for stem cell collection, then high-dose chemotherapy/autologous stem cell transplantation in June or July. The patient's was concerned that she did not understand much of the pretransplant teaching and I explained to her and Don the pathophysiology of plasma cells, light chains, his improving trend of renal function, goal of 90% kappa/lambda ratio reduction prior to transplant. We also refilled Revlimid 5 mg every other day, weekly vitamin D, and I am giving him a trial of tramadol 50 mg every 12 hours as Tylenol is not effective for his pain and we are avoiding NSAIDs and additional aspirin. He otherwise has no toxicities of chemotherapy. He sees Dr. Heath for follow-up tomorrow and maintains insulin with stabilization of his blood sugars following with diabetes management clinic. I will see him in follow-up with myeloma labs in 1 month plan end of therapy prior to transplant. 04/09/2020: Here for one month f/u with his . He continues outpatient hemodialysis on Thursday//Saturdays. He notes fatigue, but generalized edema remarkably improved with no significant pain. I reviewed his M-spike, IgGand kappa light chains with K/L ratio that has remarkably improved (>90% reduction past month). [place] light chains decreased from 12,000 to 42. Only concern is significant hyperglycemia with dexamethasone. 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 I will coordinate evaluation by Dr. Quique Hall for HDC/autologous stem cell transplantevaluation and hold on adding Revlimid since significant response of light chains noted. I contacted Dr. Rahman of nephrology to consider reducing hemodialysis days to twice weekly. I will send myeloma labs in about 4 weeks, have him see Dr. Hall and f/u with me the following week to review plan and determine whether plan for HDC/stem cell transplant. 03/14/2020: Patient presents with his today after initiating both outpatienthemodialysis on Thursday//Saturdays and initial cycle of daratumumab, bortezomib, dexamethasone with potential addition of Revlimid after 1 month if less than optimal response. He received his first cycle of combination chemotherapy 03/12/2020. --Patient tolerated initial daratumumab infusion reasonably well with brief infusion reaction (dizziness and mild wheezing) that was treated with diphenhydramine, steroids, albuterol, and Demerol for rigors. He completed remaining infusion in an outpatient bed on the inpatient [place] Thursday and we anticipate further weekly daratumumab infusions as an outpatient. --Patient was seen at dialysis today and noted to have hemoglobin 6.8. He will receive 1 unit of packed red blood cells prior to Velcade today for scheduled tomorrow. His was unable to be present at the hospital at time of diagnosis and his initial bone marrow biopsy was performed on 03/08/2020. She requests evaluation with him today for extensive questions regarding his care. She reported her session and requested a copy of this progress note following our visit today. 1. She asked if all the tests at the hospital returned. We discussed the teststhat are used to follow-up myeloma including his elevated IgG, elevated free kappa light chains, and elevated M spike. We discussed in detail the pathophysiology of myeloma but she felt very anxious and overwhelmed and I reassured her that we will readdress this at further follow-up visits. 2. Patient had a metastatic bone survey showing no areas of lytic disease or pathologic fractures. We discussed CRAB criteria for multiple myeloma diagnosisand that he meets criteria of R renal and A anemia, but not elevated calcium or bone disease (C and B). She specifically asked is stage of multiple myeloma andwe noted that he still will require beta-2 glycoprotein (ISS) but is most consistent with stage III. We are still awaiting his chromosomal abnormalities by fluorescence in situ hybridization and will readdress at next follow-up visitwith his final bone marrow biopsy results (this study was only performed 03/08/2020). 3. She wanted to know if his testing showed cancer elsewhere. We discussed that since metastatic bone survey showed more lytic areas I do not feel that F-18 PET is high priority but this may be ordered at some point to assess for any asymptomatic bony metastatic disease. 4. He has recently had elevated blood sugars and does not have a history of diabetes, but we discussed that with weekly steroids he should likely have additional insulin on his steroid days. I offered that this could be managed byhis primary physician Dr. Heath and he could be referred for diabetes management clinic. 5. We reiterated multiple times that his schedule may be variable. He will typically have a long infusion on Mondays with daratumumab but initially he willpresent twice weekly for Velcade injection on Mondays and . This will change during the course of his therapy and he should refer to his calendar. 6. We discussed not taking additional vitamins unless approved by nephrology. I also discussed potentially adding Revlimid and we will address at future visits if this is needed based on his follow-up labs ordered 04/02/2020. His medications may be filled either locally or with his prescription plan, but manyof these will be ordered by nephrology. He is to continue vitamin D2 as recommended by nephrology. Blood pressure medications will be regulated by primary care and nephrology. 7. We discussed concerning side effects, most commonly hyperglycemia, insomnia,risk of thrombosis (recently was diagnosed with left superficial thrombosis of the left upper extremity and additional heparin is given with his dialysis), andneuropathy with Velcade. Patients do not tend to have significant nausea or possible appetite (effects of dexamethasone increase his appetite). I cannot recommend medical marijuana and would discuss this with his pre coder whetherthis would interfere with dialysis. We will also follow closely for cytopenias and reviewed infectious precautions. He has a son from [place] who plans to visit on Thursday and we discussed COVID-19 testing appropriate social isolation protocols. 8. We discussed whether he was eligible for transplant and this will be evaluated based on his response and overall health in likely 3 to 4 months afterinitiation of therapy. We did not discuss autologous stem cell transplant in detail. We did discuss that although this is not curative therapy, many patients are controlled with medication over longer periods of time (often 5 to 6 years) with appropriate therapy. It is an aggressive cancer due to its significant infectious risk and association with renal failure. 9. Exercise may be performed as tolerated but should be done in moderation and likely we should wait a few weeks for more significant exercise given his recentdialysis and initiation of chemotherapy. I did not specifically address his diet but he may address this with our [facility] nutrition team. He will also receivechemotherapy class with our nurses in the infusion center. PRELIMINARY HISTORY (from initial consult 03/08/2020): This is a now 77-year-old male who was transferred from [place] emergency room by [facility] due to critical potassium 8.7 with elevated creatinine 11.2 and BUN 82 on 03/04/2020. We do not have any recent blood work for comparison but hehad normal creatinine in 2011. He was urgently treated for his hyperkalemia anddialysis was arranged emergently by nephrology team. He has now stabilized on dialysis and had extensive work-up for etiology of his acute renal failure with severe anemia felt to be due to anemia of renal insufficiency. Iron studies returned normal with ferritin 160, but B12 low at 84 and folate low normal at 5.2. He is receiving appropriate B12 repletion. The patient reports that he has had a prolonged period of fatigue up to a year and has decreased appetite with subjective weight loss. He denies any significant bone pain other than pain in his right shoulder and has no prior falls or recurrent back pain. He had a shoulder film showing labral pathology of the joint but no fracture or dislocation. Myeloma labs were sent showing M spike 3.6 g/dL with serum immunofixation showing IgG kappa light chain specificity. Serum IgG markedly elevated at 5312 and free kappa light chain 12,649.9 with normal free lambda light chain 11.94 free kappa/lambda ratio 1063. Hepatitis A, B, and C serologies were all negative and COVID-19 screening was negative. LORE, c-ANCA, p-ANCA, anti-GBM, and antimyeloperoxidase were all negative. Clinically the patient has multiple myeloma and I explained that we needed to proceed with bone marrow aspiration and biopsy to provide baseline for diagnosis and to expedite chemotherapy with an aggressive regimen to reduce his light chains. I will review information with him at noon today around the time of his bone marrow biopsy for combinationdaratumumab 16 mg/kg IV weekly, bortezomib 1.3 mg/kg subcu twice weekly, dexamethasone 40 mg weekly, and Revlimid 25 mg p.o. daily days 1 through 14 of each 21-day cycle. Revlimid will be ordered through a special pharmacy. We will schedule his infusions as an outpatient early next week on his nondialysis days. Written literature for these medications will be provided and he may signinformed consent so that we may order this regimen as an outpatient. The patient's is not with him today but has been treated by me for breast cancer in the past and had multiple questions. We would like to arrange a time for her to be available to ask questions and be present for chemo consent, possibly around noon today. This will need to be coordinated with nursing staffdue to COVID-19 visitor restriction policy. - Summary of Therapies Summary of Therapies: Cycle 1 day 1 03/12/2020: Daratumumab 16 mg/kg IV weekly, bortezomib 1.3 mg/kg subcu twice weekly, dexamethasone 40 mg weekly. 04/09/2020: Under direction of Dr. Hall, in early April we added Revlimid 5 mg every other day of each 21-day cycle with cycle 2 due to excellent response of kappa light chains. 04/26/2020: Malignant hematology eval for possible high-dose chemotherapy/autologous stem cell transplant. He was able to stop dialysis 04/24/2020. Given Velcade only (hold daratumumab) on 07/02/2020. 07/25/2020: Melphalan 100mg/m2 IV day 0 autologous stem cell transplant 07/25/2020at [facility]. 11/26/2020: Follow-up bone marrow aspiration and biopsy 10/18/2020 for MRD evaluation shows hypocellular marrow with 0.5% plasma cells, no clonal population by flow cytometry but 0.03% kappa light chain skewing. Started Revlimid 5 mg daily for maintenance therapy early October 2020. Nondiagnostic bone marrow for MRD in spring 2021 at . Planned follow-up bone marrow biopsy for MRD at [facility] fall 2021. -- 02/05/2022: Revlimid on hold since 12/12/2021 for cytopenias. Continue to follow off Revlimid 1 more month, then if anemia improves we may resume 5 mg every other day maintenance. ROS Details: All systems reviewed & no additional complaints except as documented Subjective/ROS - Narrative: CONSTITUTIONAL: Prior worsening fatigue since HD Melphalan/ASCT 07/2020, negative for fever or night sweats. Post-transplant infections as per HPI, now resolved. HEAD AND NECK: Stable vision since control of his diabetes mellitus. Negative for changes in hearing. Negative for mouth ulcers, nasal congestion and nasal drainage. PULMONARY: Negative for chest pain, cough and dyspnea. CARDIOVASCULAR: Negative for claudication and irregular heartbeat/palpitations. Resolved edema since diagnosis, now off dialysis. GASTROINTESTINAL: Negative for abdominal pain, constipation, diarrhea, nausea orvomiting. Improved appetite and 20 kg weight loss after starting dialysis, chemotherapy, and transplant for light chain nephropathy. 11/2020--returned to baseline weight pretransplant. GENITOURINARY: Negative for dysuria and hematuria. Improved urinary output, diagnosed in February 2020 with renal failure requiring dialysis--off dialysis 04/24/2020. Prior nephrolithiasis previously followed by Dr. Seals--recent ESWL 01/14/2022 at [place]. ENDOCRINE: Negative for cold intolerance and heat intolerance. Improvement of prior hyperglycemia with home blood sugars in the 100-200s on supplemental insulin glargine. CENTRAL NERVOUS SYSTEM: Negative for gait disturbance and headache. No focal neurologic deficits or history of stroke. 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 PSYCHIATRIC: Negative for anxiety or depression. DERMATOLOGICAL: Positive for pruritus and rash as per HPI. Negative for suspicious skin lesions. MUSCULOSKELETAL: Resolved back pain and and thigh pain. Resolved leg cramps, improved neuropathy. No longer on ferrous sulfate post transplant. HEMATOLOGICAL: Negative for bleeding and easy bruising. Recent transfusion 2 units packed red blood cells 01/23/2022 for hemoglobin 6.7. His only transfusion was other than 2 units red cells in October 2021. Positive for left basilic vein thrombus on Doppler ultrasound 03/12/2020--no longer requires anticoagulation. ALLERGY: Negative for environmental allergies and food allergies. [facility] - History Attestation statement: The following information was validated with the patient. Source: Old Records Reviewed - Medical History Medical History: Medical History (Last Reviewed 02/06/22 @ 10:13 by Brook Huddleston MD) Apnea Arthritis Diabetes mellitus, type 2 Hyperlipidemia Hypertension Kidney stones Multiple myeloma Skin cancer - Family History Family History: Family History (Last Reviewed 02/06/22 @ 10:13 by Brook Huddleston MD) Sister Myocardial infarct Mother Myocardial infarct Father Skin cancer - Social History Smoking Status: Never smoker Tobacco Type: cigarettes Substance Use Type: None Home Medications & Allergies Allergies gabapentin Allergy (Verified 02/05/22 11:48) Rash Home Medications famotidine 20 mg tablet 20 mg PO DAILY #30 tab 03/10/20 [Rx Confirmed 02/05/22] insulin glargine 100 unit/mL (3 mL) subcutaneous pen (Lantus Solostar U-100 Insulin) 25 unit SUBCUT DAILY 04/27/20 [History Confirmed 02/05/22] insulin lispro 100 unit/mL subcutaneous pen (Humalog KwikPen (U-100) Insulin) 6 - 16 unit SUBCUT DIRECTED 04/27/20 [History Confirmed 02/05/22] atorvastatin 20 mg tablet 20 mg PO DAILY 10/15/20 [History Confirmed 02/05/22] cholecalciferol (vitamin D3) 50 mcg (2,000 unit) capsule (Vitamin D3) 50 mcg PO DAILY 10/15/20 [History Confirmed 02/05/22] aspirin 81 mg tablet,delayed release 81 mg PO DAILY 11/26/20 [History Confirmed 02/05/22] metformin 500 mg tablet 1,000 mg PO BID 11/26/20 [History Confirmed 02/05/22] cyanocobalamin (vitamin B-12) 1,000 mcg tablet (Vitamin B-12) 1,000 mcg PO DAILY10/03/21 [History Confirmed 02/05/22] acyclovir 400 mg tablet 400 mg PO BID 60 Days #120 tab 12/26/21 [Rx Confirmed 02/05/22] lenalidomide 5 mg capsule (Revlimid) 5 mg PO DAILY 28 Days #28 cap 01/07/22 [Rx Confirmed 02/05/22] terazosin 10 mg capsule 10 mg PO DAILY 02/05/22 [History Confirmed 02/05/22] Objective - Height/Weight Height/Weight: Height 5 ft 10 in Weight 92.986 kg BSA for Today's Weight 2.10 - Vital Signs Vital Signs: 02/05/22 11:50 Temperature 97.7 F Pulse Rate [Monitor] 87 Respiratory Rate 16 Blood Pressure [Left Arm] 144/71 H 02 Sat by Pulse Oximetry 99 - Pain Right Hip Pain Intensity: 5 Generalized Pain Intensity: 1 Left Upper Arm Pain Intensity: 4 Physical Exam Narrative: CONSTITUTIONAL: The patient is in no acute distress. Recent increase in fatigue. HEAD / FACE: Normocephalic. EYES: Pupils are equal and reactive to light. Conjunctivae and lids are benign in appearance. Ocular movement intact. EARS: Hearing grossly intact. NOSE / MOUTH / THROAT: Nose, mouth, tongue and oropharynx are benign in appearance. No signs of inflammation. NECK / THYROID: Neck is supple. Thyroid is symmetrical, without thyromegaly, masses or palpable nodules. LYMPHATIC: No palpable cervical, supraclavicular, axillary, or inguinal adenopathy. RESPIRATORY: Normal to inspection. Lungs clear to auscultation and percussion. No wheezing, rales, rhonchi or rubs. Normal effort. CARDIOVASCULAR: Regular rate and rhythm. No murmurs, gallops, or rubs. VASCULAR: Carotid, radial, femoral and pedal pulses present bilaterally. No bruits. ABDOMEN: Bowel sounds normoactive. Soft, nontender and non-distended. No hepatosplenomegaly. No masses. GENITOURINARY: No CVA tenderness. No suprapubic fullness or tenderness. No groinadenopathy. No evidence of hernias. INTEGUMENTARY: The skin is unremarkable. Resolved antecubital/chest rashes. No suspicious lesions BACK / SPINE: The back is nontender. No step-off deformity. No CVA tenderness. MUSCULOSKELETAL: Normal musculature, no joint deformities or abnormalities, normal range of motion for all four extremities. EXTREMITIES: No longer has bilateral lower extremity edema; no cyanosis or clubbing. No Vitor sign. NEUROLOGICAL: Alert and oriented. Cranial nerves intact. No gross motor or sensory deficits. PSYCHIATRIC: No anxiety or evidence of depression. - ECOG Performance Status ECOG Score: 1 Results - Labs Labs: Diagram of Most Recent CBC and CMP 02/05/22 11:25 12/26/21 16:01 Labs - Last 7 Days 02/05/22 11:25: Corrected WBC 3.6 L, Uncorrected WBC Count 3.6 L, RBC 2.64 L, Hgb 9.3 L, Hct 27.6 L, MCV 104.3 H, MCH 35.3 H, MCHC 33.9, RDW 24.8 H, Plt Count90 L, MPV 8.4, Neut % (Auto) 66.4, Lymph % (Auto) 21.2, [place] % (Auto) 6.9, Eos %(Auto) 5.1, Baso % (Auto) 0.4, Neut # (Auto) 2.4, Lymph # (Auto) 0.8 L, [place] # (Auto) 0.3, Eos # (Auto) 0.2, Baso # (Auto) 0.0, Nucleated RBC % (auto) 0.1 - Impressions No imaging for review. We do not have records from his recent ESWL at [place]. 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 He had marked elevation in IgG kappa on initial laboratory work-up for renal failure in February 2020. He has remained hemodynamically stable and I discussed in detail with the patient the pathophysiology of multiple myeloma and associated injury to kidneys, persistentanemia, bone disease, and potential hypercalcemia (we do not see hypercalcemia in this patient). He consented to inpatient bone marrow biopsy 03/08/2020 which was diagnostic for multiple myeloma--70% plasma cells without amyloid depositionidentified in small marrow specimen. Normal baseline skeletal survey. I reviewed pathophysiology of myeloma, results of bone marrow biopsy, skeletal survey, and myeloma labs with the patient and his . Patsy consented to begin first cycle Daratumumab, Velcade, and dexamethasone on03/12/2020--other than infusion reaction from first Daratumumab, improved with symptomatic therapy. I reviewed his case with Dr. Quique Hall of Malignant Hematology--added Revlimid 5mg qod following significant reduction of light chains in early April 2020. 05/07/2020: As per HPI, Angel and his met with Dr. Hall 04/26/2020 with preparation for likely high-dose chemotherapy/autologous peripheral stem cell transplant if he meets criteria based on cardiopulmonary work-up. He has had greater than 90%. The patient was able to discontinue hemodialysis on 04/24/2020 and has not had any recurrence of edema with now improved renal function, creatinine clearance now 53. --I will continue current therapy with further evaluation by Dr. Hall in 1 month for planning his HDC/autologous stem cell transplant. We will send repeatmyeloma labs (SPEP, IgG, kappa/lambda light chains) in 4 weeks with f/u visit with me the following week to review results as well as evaluation with Dr. Hall for possible stem cell transplant. 06/04/2020: Tolerating chemotherapy well other than increasing neuropathy of hands and feet. Dose reduced Velcade by 25% next cycle. Added daily ferrous sulfate. --He was referred to diabetes management clinic and sees Dr. Heath with regularfollow-up by Dr. Rahman since he is off dialysis. Diabetes control improved. 07/02/2020: Last dose of Velcade today. Neuropathy is stable and pain is well controlled. He will have COVID-19 test on 07/11/2020 for planned admission for stem cell collection on 07/17/2020 then high-dose melphalan followed by peripheral blood stem cell transplant day 0 scheduled 07/23/2020. His next follow-up with me will be in about 4 months after he is completed day 100 transplant follow-up. He may return sooner as needed. 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 Melphalan 100mg/m2 + ASCT Day 0 07/25/2020. 11/26/2020: Followup of [facility] end of therapy bone marrow biopsy 10/18/2020--no minimal residual disease. Started Revlimid maintenance 5mg daily in early October2020. 02/27/2021: No new symptoms other than rash. Slow improvement of neuropathy--titrating off gabapentin with palliative medicine. Benadryl for rash. Continue Revlimid 5mg daily. He will be due for first post transplant vaccines sooner--will check schedule with . 05/30/2021: Rash and neuropathy improved. Tolerating Revlimid well. Discussedcoronavirus booster and influenza vaccines. Post transplant vaccines due in 07/2021. No M-spike and normal kappa/lambda ratio. 10/03/2021: Multiple admissions for hyperkalemia, renal insufficiency due to dehydration, anemia requiring transfusion. Still feels weak and dizzy and his electrolyte disorders are being managed by primary care. No detectable M spike's and kappa/lambda light chain ratio is normal with elevated levels of both likely due to recent infections. Skeletal survey without new lytic lesions. He is due for MRD bone marrow follow-up with Dr. Hall next month. For now continue Revlimid 5 mg daily. 01/02/2022: Patient presents with his who is concerned with increasing fatigue. He has had a decline in his hemoglobin to 8 although his renal function is actually improved from prior values with creatinine clearance of 50. We sent serum iron profile showing increased iron stores with iron saturation 72% and ferritin 663. Homocystine was normal methylmalonic acid is pending. Trev also send an erythropoietin level to see if there may be a benefit to adding erythropoietin for anemia of chronic kidney disease. He will continue to follow with Dr. Meade. He still has no M spike on serum protein electrophoresis and normal kappa/lambda light chain ratio. MRD testing at [facility] was nondiagnostic and he will have repeat bone marrow biopsy here with me to send MRD testing. Next followup with me in 3 months for exam and f/u myeloma labs. We will coordinate his bone marrow biopsy at that time. He will continue follow-up by nephrology for chronic kidney disease although his prior hyperkalemia has improved on recent labs. May return sooner if new issues arise. 02/05/2022: Patient has persistent fatigue although did require transfusion 2 weeks ago for hemoglobin 7.6. Iron studies show increased iron saturation and ferritin with normal methylmalonic acid and homocystine. Erythropoietin level is elevated therefore he does not have an indication for erythrocyte stimulating agents. Myelosuppression is likely due to prior Revlimid and I will keep him off therapy for another 1 month with repeat CBC at that time. If anemia is improving I will resume Revlimid at 5 mg every other day maintenance therapy. He will be scheduled for MRD bone marrow at [place] [facility] in April 2022, then follow-up with me with review of myeloma labs 3 months after this procedure. He still has undetectablemonoclonal spike and normal kappa/lambda light chain ratio on most recent labs. Renal function is improving since ESWL at [place] in late December. This is a moderate complexity visit over 35 minutes for symptom and lab review, address multiple comorbidities, and followup plan with patient and his . (2) Anemia of renal disease Hemoglobin has decreased to 8 and iron stores show increased iron saturation andferritin. He no longer takes supplemental iron but has ongoing B12 repletion 1 mg p.o. daily. Methylmalonic acid is pending to assess whether B12 repletion isadequate. We are also sending an erythropoietin level and if methylmalonic acidis normal, we will initiate erythropoietin therapy for anemia of chronic kidney disease. I will update nephrology if decision to add erythrocyte stimulating agent therapy. I will contact him with these results and coordinate repletion therapy. In addition the patient is on chronic Revlimid which it is myelosuppressive. -- Revlimid has been on hold since 12/12/2021. He did require transfusion in early January and has elevated iron saturation and ferritin, normal methylmalonic acid and homocystine, and increased erythropoietin level. We will continue to hold Revlimid. If he has increasing transfusion requirement we may perform bonemarrow biopsy prior to scheduled MRD bone marrow in April 2022 to be performed in interventional radiology. (3) History of hemodialysis Initiated inpatient hemodialysis 02/2020, then transitioned to outpatient hemodialysis 3 times weekly Thursday//Thursday schedule. Chemotherapy given Thursday/. 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 He was actually able to stop dialysis within 2 months with the last session 04/24/2020 as noted above. Now 21 months after Melphalan 100mg/m2 + autologous PBSCT given his significant response to initial myeloma directed therapy. Continued f/u with nephrology for stage III chronic kidney disease/resolved hyperkalemia. (4) Steroid-induced diabetes mellitus Qualifiers: Encounter type: subsequent encounter Qualified Code(s): E09.9 - Drug or chemical induced diabetes mellitus without complications; T38.0X5D - Adverse effect of glucocorticoids and synthetic analogues, subsequent encounter Patsy had an excellent response of light chains but was noted to have significant hyperglycemia 300-500 fasting blood sugars. He was referred to diabetes management clinic with addition of insulin therapy that has significantly improved control of his blood sugars. Patient also had remarked on some blurred vision that improved with control of blood sugars. Continue follow-up of blood sugars during admission for transplant in early July. 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 Resumed low dose metformin and titrating down insulin--directed by his primary physician. (5) B12 deficiency Patient was found to have B12 deficiency and was been placed on daily B12 prior to hospital discharge. We continued weekly IM B12 for 8 weeks with his myeloma regimen. Hemoglobin is improved on Aranesp and weekly B12, then changed to monthly maintenance therapy. He has not required further blood transfusions since 03/15/2020. Follow- up methylmalonic acid on 04/30/2020 was normal showing adequate replacement. He will continue monthly IM B12 and weekly vitamin D2 therapy 50,000 units orally for low 25 hydroxy vitamin D stores. He may take supplemental calcium once daily. -- Repeat methylmalonic acid normal and will continue current B12 dosing (6) Encounter for chemotherapy management Started cycle 1 day 1 03/12/2020: Daratumumab 16 mg/kg IV weekly, bortezomib 1.3 mg/kg subcu twice weekly, dexamethasone 40 mg weekly. We added Revlimid 5 mg every other day of each 21-day cycle with cycle 2 due to excellent reduction of kappa light chains (recommended by Dr. Hall malignanthematology). 06/04/2020: 25% DR Bortezomib (100% all other meds) due to worsening neuropathy. Last dose of bortezomib 07/02/2020 and holding daratumumab per request of Dr. Hall. 07/25/2020: Melphalan 100mg/m2 + autologous PBSCT 10/18/2020: Started Revlimid 5 mg daily maintenance after bone marrow biopsy negative for MRD. Repeat MRD bone marrow at [facility] in 3 months because spring 2021 bone marrow at was nondiagnostic. -- Revlimid on hold 12/12/2021 due to myelosuppression. Continue to hold at 02/05/2022 follow-up visit. - Chemo Plan Chemo Plan (Dose, Rate, Freq): 09/25/2019: Melphalan 100mg/m2 + autologous PBSCT-->10/2020 Revlimid 5mg daily maintenance after MRD bone marrow biopsy. On hold since 12/12/2021 due to anemia. Goal of Treatment: Control - Time with Patient Time Spent with Patient (Follow Up Visit): 35 minutes - Review monoclonal labs and manage worsening anemia. Coordination of Care & Counseling Time: Greater than 50% of time spent with patient was for coordination of care (as documented) and [id number] counseling of patient and/or family. Dictated By: Brook Huddleston MD DD/ [id number] Signed By: <Electronically signed by MD Brook Huddleston> 02/06/22 [id number] [facility] Work Phone: [phone] Hospital Discharge instructions Patient Education 01/28/2022 09:14:11 Kidney Stones, Bhlv-sv-Vvza Kidney Stones Kidney stones are rock-like masses that form inside of the kidneys. Kidneys are organs that make pee (urine). A kidney stone may move into other parts of the urinary tract, including: The tubes that connect the kidneys to the bladder (ureters). The bladder. The tube that carries urine out of the body (urethra). Kidney stones can cause very bad pain and can block the flow of pee. The stone usually leaves your body (passes) through your pee. You may need to have a doctor take out the stone. What are the causes? Kidney stones may be caused by: A condition in which certain glands make too much parathyroid hormone (primary hyperparathyroidism). A buildup of a type of crystals in the bladder made of a chemical called uric acid. The body makes uric acid when you eat certain foods. Narrowing (stricture) of one or both of the ureters. A kidney blockage that you were born with. Past surgery on the kidney or the ureters, such as gastric bypass surgery. What increases the risk? You are more likely to develop this condition if: You have had a kidney stone in the past. You have a family history of kidney stones. You do not drink enough water. You eat a diet that is high in protein, salt (sodium), or sugar. You are overweight or very overweight (obese). What are the signs or symptoms? Symptoms of a kidney stone may include: Pain in the side of the belly, right below the ribs (flank pain). Pain usually spreads (radiates) to the groin. Needing to pee often or right away (urgently). Pain when going pee (urinating). Blood in your pee (hematuria). Feeling like you may vomit (nauseous). Vomiting. Fever and chills. How is this treated? Treatment depends on the size, location, and makeup of the kidney stones. The stones will often pass out of the body through peeing. You may need to: Drink more fluid to help pass the stone. In some cases, you may be given fluids through an IV tube put into one of your veins at the hospital. Take medicine for pain. Make changes in your diet to help keep kidney stones from coming back. Sometimes, medical procedures are needed to remove a kidney stone. This may involve: A procedure to break up kidney stones using a beam of light (laser) or shock waves. Surgery to remove the kidney stones. Follow these instructions at home: Medicines Take uzce-orp-iqkifcz and prescription medicines only as told by your doctor. Ask your doctor if the medicine prescribed to you requires you to avoid driving or using heavy machinery. Eating and drinking Drink enough fluid to keep your pee pale yellow. You may be told to drink at least 8 10 glasses of water each day. This will help you pass the stone. If told by your doctor, change your diet. This may include: ?Limiting how much salt you eat. ?Eating more fruits and vegetables. ?Limiting how much meat, poultry, fish, and eggs you eat. Follow instructions from your doctor about eating or drinking restrictions. General instructions Collect pee samples as told by your doctor. You may need to collect a pee sample: ?24 hours after a stone comes out. ?8 12 weeks after a stone comes out, and every 6 12 months after that. Strain your pee every time you pee (urinate), for as long as told. Use the strainer that your doctor recommends. Do not throw out the stone. Keep it so that it can be tested by your doctor. Keep all follow-up visits as told by your doctor. This is important. You may need follow-up tests. How is this prevented? To prevent another kidney stone: Drink enough fluid to keep your pee pale yellow. This is the best way to prevent kidney stones. Eat healthy foods. Avoid certain foods as told by your doctor. You may be told to eat less protein. Stay at a healthy weight. Where to find more information National Kidney Foundation (NKF): www.kidney.org [facility] (UCF): www.urologyhealth.org Contact a doctor if: You have pain that gets worse or does not get better with medicine. Get help right away if: You have a fever or chills. You get very bad pain. You get new pain in your belly (abdomen). You pass out (faint). You cannot pee. Summary Kidney stones are rock-like masses that form inside of the kidneys. Kidney stones can cause very bad pain and can block the flow of pee. The stones will often pass out of the body through peeing. Drink enough fluid to keep your pee pale yellow. This information is not intended to replace advice given to you by your health care provider. Make sure you discuss any questions you have with your health care provider. Document Released: 01/19/2009 Document Revised: 12/20/2019 Document Reviewed: 12/20/2019 [employer] Patient Education 2020 [employer]. Follow Up Care 01/20/2022 09:24:11 With:Arnel Urban MD, Patsy Payne, URO Address: [facility] [address] [place] [address]- When:Within 2 Month(s) Comments:f/u to Terazosin therapy With:Patsy Seals Jr., MD URO Address: [facility] [address] [place] [address]- When:Within 6 Month(s) Comments:shekhar mak [facility] 05-20-2022 Progress note Author Brook Huddleston [facility] January 03, 2022 9:40am Note Date/Time January 02, 2022 1:38p m [facility] at [address] [place] [address] Hem/Onc Follow Up Note - OP Signed Patient: Patsy Mills MR#: [id number] : 1945 Acct:[id number] Age/Sex: 76 / M Type: REG RCR Copies to: MD Helen Jaramillo MD~ Subjective Date/Time of Service: Date of Service: 01/02/2022 Time of Service: 13:37 Chief Complaint: Patient is here today for 3 month follow up visit and go over labs. He is on hold from his Revlimid for 30 days starting 12/[address] Hall at [facility]. He is tired dizzy and worn out all the time HPI: 01/02/2022: Patsy and his are here for 3 month followup visit. She raised most of the concerns regarding worsening fatigue. He has been off He underwent a painful bone marrow by [facility] with Dr. aHll with nondiagnostic specimen. Dr. Hall recommended repeat bone marrow in the fall with MRD testing (we will set up with IR). I reviewed his f/u monoclonal gammopathy testing showing asymmetric gamma but no M-spike. Normal kappa/lambda light chain ratio. Hemoglobin declined to 8--elevated iron saturation and ferritin. I will check methylmalonic acid and homocysteine, erythropoietin, and may consider adding erythropoietin. Continue f/u with Dr. Barrett. 10/03/2021: Patsy is here for 4-month follow-up of light chain myeloma. His brought me a thorough list of his recent hospitalizations since early August 2021. Recurrent weakness and dizziness as per chief complaint. --August 20 he was treated for UTI at [facility] ER, thenadmitted August 24 to [place] with dehydration and urosepsis with discharge August 29. 09/05/[address] Heath for continued antibiotics with Bactrim DS. Urine also returned positive for candidiasis and he was treated with fluconazole daily. He stopped his hydralazine and Lasix. --09/17/2021: He returned for labs and skeletal survey at [facility] and his potassium on blood work was markedly elevated. We contacted him and advised ER evaluation at [facility]. His potassium returned at 7.3 and he required hydration, calcium gluconate, insulin with bicarb, and had a negative Covid test. He was admitted and had unremarkable renal ultrasound, transfused 1 unit of blood for hemoglobin 7.3. Potassium and creatinine normalized and he was discharged home on 09/19/2021. Since that time he has had some improvement of energy but still has poor appetite and mild weakness. No fever, chills, or sweats. I will have him follow-up with nephrology and Dr. Heath for management of his potassium and creatinine. He denies any abdominal pain or bone pain and is otherwise compliant with maintenance Revlimid 5 mg daily. --Labs from 09/16/2021 did show mild elevation in creatinine 3.9 likely due to his electrolyte disturbances. His creatinine had increased from 1.29-2.11 likely due to dehydration. Serum M spike was not observed, but urine M spike was detected at 6.9. Urine immunofixation did not show monoclonal population and his urine M spike is likely due to his recent urinary infections. Serum kappa and lambda light chains were both elevated to 62.1 and 38.7 respectively with normal kappa/lambda ratio 1.6. Skeletal survey did not show any lytic lesions. At this time I would not change his maintenance Revlimid. He is due for follow-up with Dr. Hall at [facility] hematology in late October for 1 year follow-up bone marrow biopsy for MRD status. His next follow-up with me will be in 3 months or sooner as needed. 05/30/2021: 3 month followup--still no new symptoms. We discussed coronavirus booster, then flu vaccine, then will have post transplant vaccines in June. He is off gabapentin and rash resolved. Tolerates Revlimid 5mg daily. Stable kappa/lambda ratio--no M-spike serum and urine testing. Quant immunoglobulins normal. I will f/u with myeloma labs in 3 months--CBC, CMP, SPEP, quant IGs, kappa/lambda light chains and beta2 microglobulin. He and his are in agreement with this plan. Low complexity visit. 02/27/2021: Here for 3-month follow-up, prior autologous stem cell transplant 07/25/2020. No limitations of daily activities--normal appetite, denies pain. Previously noted increased rash over bilateral antecubital areas, chest and back. He is titrating off gabapentin due to improving neuropathy and rash mildly better. Still on Revlimid 5mg daily. Uses benadryl prn for pruritus andrash. Will contact for post transplant vaccines. Stable kappa/lambda ratio--no M-spike serum and urine testing. Quant immunoglobulins normal. I willf/u with myeloma labs in 3 months--CBC, CMP, SPEP, quant IGs, kappa/lambda lightchains and beta2 microglobulin. He and his are in agreement with this plan. 11/26/2020: Patsy is here for followup after D86 bone marrow biopsy at [facility] on 10/18/2020. No evidence of MRD--0.5% plasma cells andno clonal plasma cells suggestive of residual myeloma. Tolerating maintenance Revlimid 5mg daily well. No bone pain and normal renal function--Dr. Vincent hasreleased for annual nephrology followup. He is fully vaccinated for [id number] and I contacted Dr. Hall for coordination of post transplant vaccines. Stable neuropathy with gabapentin escalated to 400mg am, 300mg midday, 400mg pm. Continues followup with palliative medicine. He has phone f/u with Dr. Hall later this week. I will f/u with myeloma labs in 3 months--CBC, CMP, SPEP, quant IGs, kappa/lambda light chains and beta2 microglobulin. He and his are in agreement with this plan. 10/15/2020: Patsy is here with his for transfer of care after Melphalan 100mg/m2 autologous stem cell transplant D0 = 07/25/2021. He is now D+83 and oneweek ago, he saw Dr. Hall for survivorship visit. We reviewed his post transplant course and prior infections have now resolved. Blood counts have recovered and renal function at prior baseline. He has persistent neuropathy ongabapentin 200mg am, 100mg noon, 200mg pm. I'm setting him up for palliative consultation (previously followed by WILFREDO Olivia). He has a followup bone marrow biopsy scheduled with Dr. Hall in 3 days to document remission. I will discuss with him the plan after bone marrow biopsy--I briefly discussed Revlimidmaintenance with Mr. Mills and his . I will contact patient after bone marrow results to confirm plan with Dr. Hall and f/u with him in about 6 weeks with myeloma labs. 07/02/2020: Patsy has completed all of his pretransplant evaluation at [facility] including cardiology visit 11 which showed ejection fraction 60%. I have contacted Dr. Hall who noted that today will be his last day of Velcade and we will hold his daratumumab. He was to have a COVID-19 teston 07/11/2020 for planned stem cell collection 07/17 and transplant on 07/23. I clarified with the staff at [facility] this this may be performed at [facility] and forwarded to them. 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 His pain mainly in hips is about 3 out of 10 and controlled with Percocet. His next follow-up with me willjoliey be in about 4 months when he is post transplant although I am happy to see him sooner if new issues arise in his post transplant course that need to bemanaged closer to home. His most recent labs reveal improving hemoglobin (11.5), stable renal function (creatinine 1.35), normal calcium, and appropriateresponse of kappa light chain to now normal 18 with K/L ratio 2.02. 06/04/2020: Met with Dr. Hall on 05/24/2020 to discuss planning for high-dose chemotherapy peripheral blood stem cell transplant. He has now hemodialysis independent after daratumumab, dexamethasone, and Velcade with addition of Revlimid. Today he reports that he has had increased neuropathy symptoms in hisbilateral hands and feet with mild interference with activity (grade 2). We discussed a 25% dose reduction of Velcade on day 1, day 4, day 8, day 11 with current cycle of DVdR. He has some leg cramps at night, with normal magnesium, but low iron saturation noted--will start daily iron for symptoms. Otherwise heis tolerating therapy well and creatinine is now normal. He was given educationfor the transplant course and he is scheduled in late June after Thanksgiving to proceed with stem cell collection and transplant. I will communicate with Dr. Hall regarding end of therapy and in 1 month I will see him with follow-up myeloma studies. No other new concerns today. 05/07/2020: Patsy is here for 1 month follow-up. Outpatient hemodialysis was stopped after 04/24/2020 due to excellent response. He was evaluated by Dr. Small at [facility] on 04/26/2020. Don and his note that Dr. Hall felt that he was physiologically about 8 years younger than his chronologic age and would likely be transplant eligible if pretransplant work-updeems this feasible. He recommended continuing current daratumumab and Velcade with low-dose Revlimid. He will reevaluate patient in 1 month and likely plan admission for stem cell collection, then high-dose chemotherapy/autologous stem cell transplantation in June or July. The patient's was concerned that she did not understand much of the pretransplant teaching and I explained to her and Don the pathophysiology of plasma cells, light chains, his improving trend of renal function, goal of 90% kappa/lambda ratio reduction prior to transplant. We also refilled Revlimid 5 mg every other day, weekly vitamin D, and I am giving him a trial of tramadol 50 mg every 12 hours as Tylenol is not effective for his pain and we are avoiding NSAIDs and additional aspirin. He otherwise has no toxicities of chemotherapy. He sees Dr. Heath for follow-up tomorrow and maintains insulin with stabilization of his blood sugars following with diabetes management clinic. I will see him in follow-up with myeloma labs in 1 month plan end of therapy prior to transplant. 04/09/2020: Here for one month f/u with his . He continues outpatient hemodialysis on Thursday//Saturdays. He notes fatigue, but generalized edema remarkably improved with no significant pain. I reviewed his M-spike, IgGand kappa light chains with K/L ratio that has remarkably improved (>90% reduction past month). [place] light chains decreased from 12,000 to 42. Only concern is significant hyperglycemia with dexamethasone. 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 I will coordinate evaluation by Dr. Quique Hall for HDC/autologous stem cell transplantevaluation and hold on adding Revlimid since significant response of light chains noted. I contacted Dr. Rahman of nephrology to consider reducing hemodialysis days to twice weekly. I will send myeloma labs in about 4 weeks, have him see Dr. Hall and f/u with me the following week to review plan and determine whether plan for HDC/stem cell transplant. 03/14/2020: Patient presents with his today after initiating both outpatienthemodialysis on Thursday//Saturdays and initial cycle of daratumumab, bortezomib, dexamethasone with potential addition of Revlimid after 1 month if less than optimal response. He received his first cycle of combination chemotherapy 03/12/2020. --Patient tolerated initial daratumumab infusion reasonably well with brief infusion reaction (dizziness and mild wheezing) that was treated with diphenhydramine, steroids, albuterol, and Demerol for rigors. He completed remaining infusion in an outpatient bed on the inpatient [facility] Thursday and we anticipate further weekly daratumumab infusions as an outpatient. --Patient was seen at dialysis today and noted to have hemoglobin 6.8. He will receive 1 unit of packed red blood cells prior to Velcade today for scheduled tomorrow. His was unable to be present at the hospital at time of diagnosis and his initial bone marrow biopsy was performed on 03/08/2020. She requests evaluation with him today for extensive questions regarding his care. She reported her session and requested a copy of this progress note following our visit today. 1. She asked if all the tests at the hospital returned. We discussed the teststhat are used to follow-up myeloma including his elevated IgG, elevated free kappa light chains, and elevated M spike. We discussed in detail the pathophysiology of myeloma but she felt very anxious and overwhelmed and I reassured her that we will readdress this at further follow-up visits. 2. Patient had a metastatic bone survey showing no areas of lytic disease or pathologic fractures. We discussed CRAB criteria for multiple myeloma diagnosisand that he meets criteria of R renal and A anemia, but not elevated calcium or bone disease (C and B). She specifically asked is stage of multiple myeloma andwe noted that he still will require beta-2 glycoprotein (ISS) but is most consistent with stage III. We are still awaiting his chromosomal abnormalities by fluorescence in situ hybridization and will readdress at next follow-up visitwith his final bone marrow biopsy results (this study was only performed 03/08/2020). 3. She wanted to know if his testing showed cancer elsewhere. We discussed that since metastatic bone survey showed more lytic areas I do not feel that F-18 PET is high priority but this may be ordered at some point to assess for any asymptomatic bony metastatic disease. 4. He has recently had elevated blood sugars and does not have a history of diabetes, but we discussed that with weekly steroids he should likely have additional insulin on his steroid days. I offered that this could be managed byhis primary physician Dr. Heath and he could be referred for diabetes management clinic. 5. We reiterated multiple times that his schedule may be variable. He will typically have a long infusion on Mondays with daratumumab but initially he willpresent twice weekly for Velcade injection on Mondays and . This will change during the course of his therapy and he should refer to his calendar. 6. We discussed not taking additional vitamins unless approved by nephrology. I also discussed potentially adding Revlimid and we will address at future visits if this is needed based on his follow-up labs ordered 04/02/2020. His medications may be filled either locally or with his prescription plan, but manyof these will be ordered by nephrology. He is to continue vitamin D2 as recommended by nephrology. Blood pressure medications will be regulated by primary care and nephrology. 7. We discussed concerning side effects, most commonly hyperglycemia, insomnia,risk of thrombosis (recently was diagnosed with left superficial thrombosis of the left upper extremity and additional heparin is given with his dialysis), andneuropathy with Velcade. Patients do not tend to have significant nausea or possible appetite (effects of dexamethasone increase his appetite). I cannot recommend medical marijuana and would discuss this with his pre coder whetherthis would interfere with dialysis. We will also follow closely for cytopenias and reviewed infectious precautions. He has a son from [place] who plans to visit on Thursday and we discussed COVID-19 testing appropriate social isolation protocols. 8. We discussed whether he was eligible for transplant and this will be evaluated based on his response and overall health in likely 3 to 4 months afterinitiation of therapy. We did not discuss autologous stem cell transplant in detail. We did discuss that although this is not curative therapy, many patients are controlled with medication over longer periods of time (often 5 to 6 years) with appropriate therapy. It is an aggressive cancer due to its significant infectious risk and association with renal failure. 9. Exercise may be performed as tolerated but should be done in moderation and likely we should wait a few weeks for more significant exercise given his recentdialysis and initiation of chemotherapy. I did not specifically address his diet but he may address this with our [facility] nutrition team. He will also receivechemotherapy class with our nurses in the infusion center. PRELIMINARY HISTORY (from initial consult 03/08/2020): This is a 76-year-old male who was transferred from [place] emergency room by [facility] due to critical potassium 8.7 with elevated creatinine 11.2 and BUN 82 on 03/04/2020. We do not have any recent blood work for comparison but he hadnormal creatinine in 2012. He was urgently treated for his hyperkalemia and dialysis was arranged emergently by nephrology team. He has now stabilized on dialysis and had extensive work-up for etiology of his acute renal failure with severe anemia felt to be due to anemia of renal insufficiency. Iron studies returned normal with ferritin 160, but B12 low at 84 and folate low normal at 5.2. He is receiving appropriate B12 repletion. The patient reports that he has had a prolonged period of fatigue up to a year and has decreased appetite with subjective weight loss. He denies any significant bone pain other than pain in his right shoulder and has no prior falls or recurrent back pain. He had a shoulder film showing labral pathology of the joint but no fracture or dislocation. Myeloma labs were sent showing M spike 3.6 g/dL with serum immunofixation showing IgG kappa light chain specificity. Serum IgG markedly elevated at 5312 and free kappa light chain 12,649.9 with normal free lambda light chain 11.94 free kappa/lambda ratio 1063. Hepatitis A, B, and C serologies were all negative and COVID-19 screening was negative. LORE, c-ANCA, p-ANCA, anti-GBM, and antimyeloperoxidase were all negative. Clinically the patient has multiple myeloma and I explained that we needed to proceed with bone marrow aspiration and biopsy to provide baseline for diagnosis and to expedite chemotherapy with an aggressive regimen to reduce his light chains. I will review information with him at noon today around the time of his bone marrow biopsy for combinationdaratumumab 16 mg/kg IV weekly, bortezomib 1.3 mg/kg subcu twice weekly, dexamethasone 40 mg weekly, and Revlimid 25 mg p.o. daily days 1 through 14 of each 21-day cycle. Revlimid will be ordered through a special pharmacy. We will schedule his infusions as an outpatient early next week on his nondialysis days. Written literature for these medications will be provided and he may signinformed consent so that we may order this regimen as an outpatient. The patient's is not with him today but has been treated by me for breast cancer in the past and had multiple questions. We would like to arrange a time for her to be available to ask questions and be present for chemo consent, possibly around noon today. This will need to be coordinated with nursing staffdue to [facility]. - Summary of Therapies Summary of Therapies: Cycle 1 day 1 03/12/2020: Daratumumab 16 mg/kg IV weekly, bortezomib 1.3 mg/kg subcu twice weekly, dexamethasone 40 mg weekly. 04/09/2020: Under direction of Dr. Hall, in early April we added Revlimid 5 mg every other day of each 21-day cycle with cycle 2 due to excellent response of kappa light chains. 04/26/2020: Malignant hematology eval for possible high-dose chemotherapy/autologous stem cell transplant. He was able to stop dialysis 04/24/2020. Given Velcade only (hold daratumumab) on 07/02/2020. 07/25/2020: Melphalan 100mg/m2 IV day 0 autologous stem cell transplant 07/25/2020at [facility]. 11/26/2020: Follow-up bone marrow aspiration and biopsy 10/18/2020 for MRD evaluation shows hypocellular marrow with 0.5% plasma cells, no clonal population by flow cytometry but 0.03% kappa light chain skewing. Started Revlimid 5 mg daily for maintenance therapy early October 2020. Nondiagnostic bone marrow for MRD in spring 2021 at . Planned follow-up bone marrow biopsy for MRD at [facility] fall 2021. ROS Details: All systems reviewed & no additional complaints except as documented Subjective/ROS - Narrative: CONSTITUTIONAL: Recent worsening fatigue since HD Melphalan/ASCT 07/2020, negative for fever or night sweats. Post-transplant infections as per HPI, now resolved. HEAD AND NECK: Stable vision since control of his diabetes mellitus. Negative for changes in hearing. Negative for mouth ulcers, nasal congestion and nasal drainage. PULMONARY: Negative for chest pain, cough and dyspnea. CARDIOVASCULAR: Negative for claudication and irregular heartbeat/palpitations. Resolved edema since diagnosis, now off dialysis. GASTROINTESTINAL: Negative for abdominal pain, constipation, diarrhea, nausea orvomiting. Improved appetite and 20 kg weight loss after starting dialysis, chemotherapy, and transplant for light chain nephropathy. 11/2020--returned to baseline weight pretransplant. GENITOURINARY: Negative for dysuria and hematuria. Improved urinary output, diagnosed in February 2020 with renal failure requiring dialysis--off dialysis 04/24/2020. Prior nephrolithiasis previously followed by Dr. Seals. ENDOCRINE: Negative for cold intolerance and heat intolerance. Improvement of prior hyperglycemia with home blood sugars in the 100-200s on supplemental insulin glargine. CENTRAL NERVOUS SYSTEM: Negative for gait disturbance and headache. No focal neurologic deficits or history of stroke. 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 PSYCHIATRIC: Negative for anxiety or depression. DERMATOLOGICAL: Positive for pruritus and rash as per HPI. Negative for suspicious skin lesions. MUSCULOSKELETAL: Resolved back pain and and thigh pain. Resolved leg cramps, improved neuropathy. No longer on ferrous sulfate post transplant. HEMATOLOGICAL: Negative for bleeding and easy bruising. Negative for history of transfusion (other than 1 unit packed red blood cells prior admission). Positive for left basilic vein thrombus on Doppler ultrasound 03/12/2020--no longer requires anticoagulation. ALLERGY: Negative for environmental allergies and food allergies. [facility] - History Attestation statement: The following information was validated with the patient. Source: Old Records Reviewed - Medical History Medical History: Medical History (Last Reviewed 01/03/22 @ 08:34 by Brook Huddleston MD) Apnea Arthritis Diabetes mellitus, type 2 Hyperlipidemia Hypertension Kidney stones Multiple myeloma Skin cancer - Family History Family History: Family History (Last Reviewed 01/03/22 @ 08:34 by Brook Huddleston MD) Sister Myocardial infarct Mother Myocardial infarct Father Skin cancer - Social History Smoking Status: Never smoker Tobacco Type: cigarettes Substance Use Type: None Home Medications & Allergies Allergies gabapentin Allergy (Verified 08/20/21 15:58) Rash Home Medications famotidine 20 mg tablet 20 mg PO DAILY #30 tab 03/10/20 [Rx Confirmed 01/02/22] insulin glargine 100 unit/mL (3 mL) subcutaneous pen (Lantus Solostar U-100 Insulin) 25 unit SUBCUT DAILY 04/27/20 [History Confirmed 01/02/22] insulin lispro 100 unit/mL subcutaneous pen (Humalog KwikPen (U-100) Insulin) 6 - 16 unit SUBCUT DIRECTED 04/27/20 [History Confirmed 01/02/22] atorvastatin 20 mg tablet 20 mg PO DAILY 10/15/20 [History Confirmed 01/02/22] cholecalciferol (vitamin D3) 50 mcg (2,000 unit) capsule (Vitamin D3) 50 mcg PO DAILY 10/15/20 [History Confirmed 01/02/22] aspirin 81 mg tablet,delayed release 81 mg PO DAILY 11/26/20 [History Confirmed 01/02/22] metformin 500 mg tablet 1,000 mg PO BID 11/26/20 [History Confirmed 01/02/22] cyanocobalamin (vitamin B-12) 1,000 mcg tablet (Vitamin B-12) 1,000 mcg PO DAILY10/03/21 [History Confirmed 01/02/22] tamsulosin 0.4 mg capsule 0.4 mg PO DAILY 10/03/21 [History Confirmed 01/02/22] lenalidomide 5 mg capsule (Revlimid) 5 mg PO DAILY 28 Days #28 cap 12/11/21 [Rx Confirmed 01/02/22] acyclovir 400 mg tablet 400 mg PO BID 60 Days #120 tab 12/26/21 [Rx Confirmed 01/02/22] Objective - Height/Weight Height/Weight: Height 5 ft 10 in Weight 88.451 kg BSA for Today's Weight 2.10 - Vital Signs Vital Signs: 01/02/22 13:25 Temperature 97.9 F Pulse Rate [Monitor] 83 Respiratory Rate 16 Blood Pressure [Left Arm] 165/81 H 02 Sat by Pulse Oximetry 99 - Pain Right Hip Pain Intensity: 5 Generalized Pain Intensity: 1 Left Upper Arm Pain Intensity: 4 Physical Exam Narrative: CONSTITUTIONAL: The patient is in no acute distress. Recent increase in fatigue. HEAD / FACE: Normocephalic. EYES: Pupils are equal and reactive to light. Conjunctivae and lids are benign in appearance. Ocular movement intact. EARS: Hearing grossly intact. NOSE / MOUTH / THROAT: Nose, mouth, tongue and oropharynx are benign in appearance. No signs of inflammation. NECK / THYROID: Neck is supple. Thyroid is symmetrical, without thyromegaly, masses or palpable nodules. LYMPHATIC: No palpable cervical, supraclavicular, axillary, or inguinal adenopathy. RESPIRATORY: Normal to inspection. Lungs clear to auscultation and percussion. No wheezing, rales, rhonchi or rubs. Normal effort. CARDIOVASCULAR: Regular rate and rhythm. No murmurs, gallops, or rubs. VASCULAR: Carotid, radial, femoral and pedal pulses present bilaterally. No bruits. ABDOMEN: Bowel sounds normoactive. Soft, nontender and non-distended. No hepatosplenomegaly. No masses. GENITOURINARY: No CVA tenderness. No suprapubic fullness or tenderness. No groinadenopathy. No evidence of hernias. INTEGUMENTARY: The skin is unremarkable. Resolved antecubital/chest rashes. No suspicious lesions BACK / SPINE: The back is nontender. No step-off deformity. No CVA tenderness. MUSCULOSKELETAL: Normal musculature, no joint deformities or abnormalities, normal range of motion for all four extremities. EXTREMITIES: No longer has bilateral lower extremity edema; no cyanosis or clubbing. No Vitor sign. NEUROLOGICAL: Alert and oriented. Cranial nerves intact. No gross motor or sensory deficits. PSYCHIATRIC: No anxiety or evidence of depression. - ECOG Performance Status ECOG Score: 1 Results - Labs Labs: Diagram of Most Recent CBC and CMP 12/26/21 16:01 12/26/21 16:01 Labs - Last 7 Days 12/26/21 16:01: Ur Random Albumin 35.4, U Random Total Protein 45.3, U Pmdpr-2-Sgecfpss (%) 5.4, U Random q-8-Blbsxopx % 13.7, U Random b-Globulin % 23.9, U Random Gamma Glob % 21.5, U Random M-Anselmo (%) Comment:, Urine Random PEP Note , Urine Immunofixation 12/26/21 16:01: Serum Total Protein 6.0, Albumin (Send Out) 2.8 L, Globulin (PEP) 3.2, Albumin/Globulin (PEP) 0.9, Zstez-3-Zsaovdifr 0.5 H, Qcyns-6-Frypxvfyz 1.0, Beta Globulins 0.9, Gamma Globulins 0.9, M-Anselmo Not observed, PEP Note , Homocysteine Cardiovas 17.5, IgG 944, IgA 250, IgM 33, Serum Immunofixation , Free [place] LC, Quant 38.9 H, Free Lambda LC, Quant 29.7 H, Free [place]/Lambda Ratio 1.31 12/26/21 16:01: PHA Creatinine Clear 47.88, Sodium 135 L, Potassium 3.9, Chloride 103, Carbon Dioxide 20.5 L, BUN 18, Creatinine 1.47 H, Est GFR (AfricanAmer) 56, Est GFR (Non-Af Amer) 47, Glucose 84, Calcium 9.0, Iron 102, TIBC 141 L, Iron Saturation 72.0 H, Transferrin 101 L, Ferritin 663.4 H, Total Bilirubin 0.5, AST 23, ALT 30, Alkaline Phosphatase 112 H, Total Protein 6.4, Albumin 2.9 L, Globulin 3.5, Albumin/Globulin Ratio 0.8 12/26/21 16:01: Corrected WBC 4.0 L, Uncorrected WBC Count 4.0 L, RBC 2.15 L, Hgb 8.0 L, Hct 22.8 L, MCV 106.0 H, MCH 37.2 H, MCHC 35.1, RDW 21.6 H, Plt Pjjyu142 L, MPV 8.2, Neut % (Auto) 63.5, Lymph % (Auto) 20.4, [place] % (Auto) 5.7, Eos % (Auto) 9.7, Baso % (Auto) 0.7, Neut # (Auto) 2.5, Lymph # (Auto) 0.8 L, [place] #(Auto) 0.2, Eos # (Auto) 0.4, Baso # (Auto) 0.0, Nucleated RBC % (auto) 0.0 - Impressions Date of Service: 09/16/21 XR/XR bone survey: surveillance Plain film bone survey HISTORY: History of multiple myeloma. No lytic or sclerotic lesion identified. Multilevel spondylosis identified. Calvarium intact. No fracture seen. Atherosclerosis noted. XR/XR bone survey IMPRESSION: No bony lesions. 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 He had marked elevation in IgG kappa on initial laboratory work-up for renal failure in February 2020. He has remained hemodynamically stable and I discussed in detail with the patient the pathophysiology of multiple myeloma and associated injury to kidneys, persistentanemia, bone disease, and potential hypercalcemia (we do not see hypercalcemia in this patient). He consented to inpatient bone marrow biopsy 03/08/2020 which was diagnostic for multiple myeloma--70% plasma cells without amyloid depositionidentified in small marrow specimen. Normal baseline skeletal survey. I reviewed pathophysiology of myeloma, results of bone marrow biopsy, skeletal survey, and myeloma labs with the patient and his . Patsy consented to begin first cycle Daratumumab, Velcade, and dexamethasone on03/12/2020--other than infusion reaction from first Daratumumab, improved with symptomatic therapy. I reviewed his case with Dr. Quique Hall of Malignant Hematology--added Revlimid 5mg qod following significant reduction of light chains in early April 2020. 05/07/2020: As per HPI, Angel and his met with Dr. Hall 04/26/2020 with preparation for likely high-dose chemotherapy/autologous peripheral stem cell transplant if he meets criteria based on cardiopulmonary work-up. He has had greater than 90%. The patient was able to discontinue hemodialysis on 04/24/2020 and has not had any recurrence of edema with now improved renal function, creatinine clearance now 53. --I will continue current therapy with further evaluation by Dr. Hall in 1 month for planning his HDC/autologous stem cell transplant. We will send repeatmyeloma labs (SPEP, IgG, kappa/lambda light chains) in 4 weeks with f/u visit with me the following week to review results as well as evaluation with Dr. Hall for possible stem cell transplant. 06/04/2020: Tolerating chemotherapy well other than increasing neuropathy of hands and feet. Dose reduced Velcade by 25% next cycle. Added daily ferrous sulfate. --He was referred to diabetes management clinic and sees Dr. Heath with regularfollow-up by Dr. Rahman since he is off dialysis. Diabetes control improved. 07/02/2020: Last dose of Velcade today. Neuropathy is stable and pain is well controlled. He will have COVID-19 test on 07/11/2020 for planned admission for stem cell collection on 07/17/2020 then high-dose melphalan followed by peripheral blood stem cell transplant day 0 scheduled 07/23/2020. His next follow-up with me will be in about 4 months after he is completed day 100 transplant follow-up. He may return sooner as needed. 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 Melphalan 100mg/m2 + ASCT Day 0 07/25/2020. 11/26/2020: Followup of [facility] end of therapy bone marrow biopsy 10/18/2020--no minimal residual disease. Started Revlimid maintenance 5mg daily in early October2020. 02/27/2021: No new symptoms other than rash. Slow improvement of neuropathy--titrating off gabapentin with palliative medicine. Benadryl for rash. Continue Revlimid 5mg daily. He will be due for first post transplant vaccines sooner--will check schedule with . 05/30/2021: Rash and neuropathy improved. Tolerating Revlimid well. Discussedcoronavirus booster and influenza vaccines. Post transplant vaccines due in 07/2021. No M-spike and normal kappa/lambda ratio. 10/03/2021: Multiple admissions for hyperkalemia, renal insufficiency due to dehydration, anemia requiring transfusion. Still feels weak and dizzy and his electrolyte disorders are being managed by primary care. No detectable M spike's and kappa/lambda light chain ratio is normal with elevated levels of both likely due to recent infections. Skeletal survey without new lytic lesions. He is due for MRD bone marrow follow-up with Dr. Hall next month. For now continue Revlimid 5 mg daily. 01/02/2022: Patient presents with his who is concerned with increasing fatigue. He has had a decline in his hemoglobin to 8 although his renal function is actually improved from prior values with creatinine clearance of 50. We sent serum iron profile showing increased iron stores with iron saturation 72% and ferritin 663. Homocystine was normal methylmalonic acid is pending. [place] also send an erythropoietin level to see if there may be a benefit to adding erythropoietin for anemia of chronic kidney disease. He will continue to follow with Dr. Meade. He still has no M spike on serum protein electrophoresis and normal kappa/lambda light chain ratio. MRD testing at [facility] was nondiagnostic and he will have repeat bone marrow biopsy here with me to send MRD testing. Next followup with me in 3 months for exam and f/u myeloma labs. We will coordinate his bone marrow biopsy at that time. He will continue follow-up by nephrology for chronic kidney disease although his prior hyperkalemia has improved on recent labs. May return sooner if new issues arise. This is a moderate complexity visit over 35 minutes for symptom and lab review, address multiple comorbidities, and followup plan with patient and his . (2) Anemia of renal disease Hemoglobin has decreased to 8 and iron stores show increased iron saturation andferritin. He no longer takes supplemental iron but has ongoing B12 repletion 1 mg p.o. daily. Methylmalonic acid is pending to assess whether B12 repletion isadequate. We are also sending an erythropoietin level and if methylmalonic acidis normal, we will initiate erythropoietin therapy for anemia of chronic kidney disease. I will update nephrology if decision to add erythrocyte stimulating agent therapy. I will contact him with these results and coordinate repletion therapy. In addition the patient is on chronic Revlimid which it is myelosuppressive. (3) History of hemodialysis Initiated inpatient hemodialysis 02/2020, then transitioned to outpatient hemodialysis 3 times weekly Thursday//Thursday schedule. Chemotherapy given Thursday/. 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 He was actually able to stop dialysis within 2 months with the last session 04/24/2020 as noted above. Now 18 months after Melphalan 100mg/m2 + autologous PBSCT given his significant response to initial myeloma directed therapy. Continued f/u with nephrology for stage III chronic kidney disease/resolved hyperkalemia. (4) Steroid-induced diabetes mellitus Qualifiers: Encounter type: subsequent encounter Qualified Code(s): E09.9 - Drug or chemical induced diabetes mellitus without complications; T38.0X5D - Adverse effect of glucocorticoids and synthetic analogues, subsequent encounter Patsy had an excellent response of light chains but was noted to have significant hyperglycemia 300-500 fasting blood sugars. He was referred to diabetes management clinic with addition of insulin therapy that has significantly improved control of his blood sugars. Patient also had remarked on some blurredvision that improved with control of blood sugars. Continue follow-up of blood sugars during admission for transplant in early July. 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 Resumed low dose metformin and titrating down insulin--directed by his primary physician. (5) B12 deficiency Patient was found to have B12 deficiency and was been placed on daily B12 prior to hospital discharge. We continued weekly IM B12 for 8 weeks with his myeloma regimen. Hemoglobin is improved on Aranesp and weekly B12, then changed to monthly maintenance therapy. He has not required further blood transfusions since 03/15/2020. Follow- up methylmalonic acid on 04/30/2020 was normal showing adequate replacement. He will continue monthly IM B12 and weekly vitamin D2 therapy 50,000 units orally for low 25 hydroxy vitamin D stores. He may take supplemental calcium once daily. -- Repeat methylmalonic acid pending today and will contact with results and anyadjustment of B12 if needed. (6) Encounter for chemotherapy management Started cycle 1 day 1 03/12/2020: Daratumumab 16 mg/kg IV weekly, bortezomib 1.3 mg/kg subcu twice weekly, dexamethasone 40 mg weekly. We added Revlimid 5 mg every other day of each 21-day cycle with cycle 2 due to excellent reduction of kappa light chains (recommended by Dr. Hall malignanthematology). 06/04/2020: 25% Bortezumab (100% all other meds) due to worsening neuropathy. [place] dose [place] 4009 07/02/2020) and holding daratumumab per request of Dr. Hall. 07/25/2020: Melphalan 100mg/m2 + autologous PBSCT 10/18/2020: Started Revlimid 5 mg daily maintenance after bone marrow biopsy negative for MRD. [facility] Hospital in 3 months because spring bone marrow was nondiagnostic. - Chemo Plan Chemo Plan (Dose, Rate, Freq): 09/25/2019: Melphalan 100mg/m2 + autologous PBSCT-->10/2020 Revlimid 5mg daily maintenance after MRD bone marrow biopsy. Goal of Treatment: Control - Time with Patient Time Spent with Patient (Follow Up Visit): 35 minutes - Review monoclonal labs and manage worsening anemia. Coordination of Care & Counseling Time: Greater than 50% of time spent with patient was for coordination of care (as documented) and [id number] counseling of patient and/or family. Dictated By: Brook Huddleston MD DD/ [id number] Signed By: <Electronically signed by MD Brook Huddleston> 01/03/22 0935 [facility] Work Phone: [phone] 489-119005-20-2022 Progress note Author Brook Huddleston [facility] January 03, 2022 9:40am Note Date/Time January 02, 2022 1:38p m [facility] [place] [address] Hem/Onc Follow Up Note - OP Signed Patient: Patsy Mills MR#: [id number] : 1945 Acct:[id number] Age/Sex: 76 / M Type: REG RCR Copies to: MD Helen Jaramillo MD~ Subjective Date/Time of Service: Date of Service: 01/02/2022 Time of Service: 13:37 Chief Complaint: Patient is here today for 3 month follow up visit and go over labs. He is on hold from his Revlimid for 30 days starting 12/[address] Hall at [facility]. He is tired dizzy and worn out all the time HPI: 01/02/2022: Patsy and his are here for 3 month followup visit. She raised most of the concerns regarding worsening fatigue. He has been off He underwent a painful bone marrow by [facility] [facility] with Dr. Hall with nondiagnostic specimen. Dr. Hall recommended repeat bone marrow in the fall with MRD testing (we will set up with IR). I reviewed his f/u monoclonal gammopathy testing showing asymmetric gamma but no M-spike. Normal kappa/lambda light chain ratio. Hemoglobin declined to 8--elevated iron saturation and ferritin. I will check methylmalonic acid and homocysteine, erythropoietin, and may consider adding erythropoietin. Continue f/u with Dr. Barrett. 10/03/2021: Patsy is here for 4-month follow-up of light chain myeloma. His brought me a thorough list of his recent hospitalizations since early August 2021. Recurrent weakness and dizziness as per chief complaint. --August 20 he was treated for UTI at [facility] ER, thenadmitted August 24 to [place] with dehydration and urosepsis with discharge August 29. 09/05/[address] Heath for continued antibiotics with Bactrim DS. Urine also returned positive for candidiasis and he was treated with fluconazole daily. He stopped his hydralazine and Lasix. --09/17/2021: He returned for labs and skeletal survey at [facility] and his potassium on blood work was markedly elevated. We contacted him and advised ER evaluation at [facility]. His potassium returned at 7.3 and he required hydration, calcium gluconate, insulin with bicarb, and had a negative Covid test. He was admitted and had unremarkable renal ultrasound, transfused 1 unit of blood for hemoglobin 7.3. Potassium and creatinine normalized and he was discharged home on 09/19/2021. Since that time he has had some improvement of energy but still has poor appetite and mild weakness. No fever, chills, or sweats. I will have him follow-up with nephrology and Dr. Heath for management of his potassium and creatinine. He denies any abdominal pain or bone pain and is otherwise compliant with maintenance Revlimid 5 mg daily. --Labs from 09/16/2021 did show mild elevation in creatinine 3.9 likely due to his electrolyte disturbances. His creatinine had increased from 1.29-2.11 likely due to dehydration. Serum M spike was not observed, but urine M spike was detected at 6.9. Urine immunofixation did not show monoclonal population and his urine M spike is likely due to his recent urinary infections. Serum kappa and lambda light chains were both elevated to 62.1 and 38.7 respectively with normal kappa/lambda ratio 1.6. Skeletal survey did not show any lytic lesions. At this time I would not change his maintenance Revlimid. He is due for follow-up with Dr. Hall at [facility] malignant hematology in late October for 1 year follow-up bone marrow biopsy for MRD status. His next follow-up with me will be in 3 months or sooner as needed. 05/30/2021: 3 month followup--still no new symptoms. We discussed coronavirus booster, then flu vaccine, then will have post transplant vaccines in June. He is off gabapentin and rash resolved. Tolerates Revlimid 5mg daily. Stable kappa/lambda ratio--no M-spike serum and urine testing. Quant immunoglobulins normal. I will f/u with myeloma labs in 3 months--CBC, CMP, SPEP, quant IGs, kappa/lambda light chains and beta2 microglobulin. He and his are in agreement with this plan. Low complexity visit. 02/27/2021: Here for 3-month follow-up, prior autologous stem cell transplant 07/25/2020. No limitations of daily activities--normal appetite, denies pain. Previously noted increased rash over bilateral antecubital areas, chest and back. He is titrating off gabapentin due to improving neuropathy and rash mildly better. Still on Revlimid 5mg daily. Uses benadryl prn for pruritus andrash. Will contact for post transplant vaccines. Stable kappa/lambda ratio--no M-spike serum and urine testing. Quant immunoglobulins normal. I willf/u with myeloma labs in 3 months--CBC, CMP, SPEP, quant IGs, kappa/lambda lightchains and beta2 microglobulin. He and his are in agreement with this plan. 11/26/2020: Patsy is here for followup after D86 bone marrow biopsy at [facility] on 10/18/2020. No evidence of MRD--0.5% plasma cells andno clonal plasma cells suggestive of residual myeloma. Tolerating maintenance Revlimid 5mg daily well. No bone pain and normal renal function--Dr. Vincent hasreleased for annual nephrology followup. He is fully vaccinated for [id number] and I contacted Dr. Hall for coordination of post transplant vaccines. Stable neuropathy with gabapentin escalated to 400mg am, 300mg midday, 400mg pm. Continues followup with palliative medicine. He has phone f/u with Dr. Hall later this week. I will f/u with myeloma labs in 3 months--CBC, CMP, SPEP, quant IGs, kappa/lambda light chains and beta2 microglobulin. He and his are in agreement with this plan. 10/15/2020: Patsy is here with his for transfer of care after Melphalan 100mg/m2 autologous stem cell transplant D0 = 07/25/2021. He is now D+83 and oneweek ago, he saw Dr. Hall for survivorship visit. We reviewed his post transplant course and prior infections have now resolved. Blood counts have recovered and renal function at prior baseline. He has persistent neuropathy ongabapentin 200mg am, 100mg noon, 200mg pm. I'm setting him up for palliative consultation (previously followed by [facility]). He has a followup bone marrow biopsy scheduled with Dr. Hall in 3 days to document remission. I will discuss with him the plan after bone marrow biopsy--I briefly discussed Revlimidmaintenance with Mr. Mills and his . I will contact patient after bone marrow results to confirm plan with Dr. Hall and f/u with him in about 6 weeks with myeloma labs. 07/02/2020: Patsy has completed all of his pretransplant evaluation at [facility] including cardiology visit 11 which showed ejection fraction 60%. I have contacted Dr. Hall who noted that today will be his last day of Velcade and we will hold his daratumumab. He was to have a COVID-19 teston 07/11/2020 for planned stem cell collection 07/17 and transplant on 07/23. I clarified with the staff at [facility] this this may be performed at [facility] and forwarded to them. 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 His pain mainly in hips is about 3 out of 10 and controlled with Percocet. His next follow-up with me jaime be in about 4 months when he is post transplant although I am happy to see him sooner if new issues arise in his post transplant course that need to bemanaged closer to home. His most recent labs reveal improving hemoglobin (11.5), stable renal function (creatinine 1.35), normal calcium, and appropriateresponse of kappa light chain to now normal 18 with K/L ratio 2.02. 06/04/2020: Met with Dr. Hall on 05/24/2020 to discuss planning for high-dose chemotherapy peripheral blood stem cell transplant. He has now hemodialysis independent after daratumumab, dexamethasone, and Velcade with addition of Revlimid. Today he reports that he has had increased neuropathy symptoms in hisbilateral hands and feet with mild interference with activity (grade 2). We discussed a 25% dose reduction of Velcade on day 1, day 4, day 8, day 11 with current cycle of DVdR. He has some leg cramps at night, with normal magnesium, but low iron saturation noted--will start daily iron for symptoms. Otherwise heis tolerating therapy well and creatinine is now normal. He was given educationfor the transplant course and he is scheduled in late June after Thanksgiving to proceed with stem cell collection and transplant. I will communicate with Dr. Hall regarding end of therapy and in 1 month I will see him with follow-up myeloma studies. No other new concerns today. 05/07/2020: Patsy is here for 1 month follow-up. Outpatient hemodialysis was stopped after 04/24/2020 due to excellent response. He was evaluated by Dr. Small at [facility] on 04/26/2020. Angel and his note that Dr. Hall felt that he was physiologically about 8 years younger than his chronologic age and would likely be transplant eligible if pretransplant work-updeems this feasible. He recommended continuing current daratumumab and Velcade with low-dose Revlimid. He will reevaluate patient in 1 month and likely plan admission for stem cell collection, then high-dose chemotherapy/autologous stem cell transplantation in June or July. The patient's was concerned that she did not understand much of the pretransplant teaching and I explained to her and Don the pathophysiology of plasma cells, light chains, his improving trend of renal function, goal of 90% kappa/lambda ratio reduction prior to transplant. We also refilled Revlimid 5 mg every other day, weekly vitamin D, and I am giving him a trial of tramadol 50 mg every 12 hours as Tylenol is not effective for his pain and we are avoiding NSAIDs and additional aspirin. He otherwise has no toxicities of chemotherapy. He sees Dr. Heath for follow-up tomorrow and maintains insulin with stabilization of his blood sugars following with diabetes management clinic. I will see him in follow-up with myeloma labs in 1 month plan end of therapy prior to transplant. 04/09/2020: Here for one month f/u with his . He continues outpatient hemodialysis on Thursday//Saturdays. He notes fatigue, but generalized edema remarkably improved with no significant pain. I reviewed his M-spike, IgGand kappa light chains with K/L ratio that has remarkably improved (>90% reduction past month). [place] light chains decreased from 12,000 to 42. Only concern is significant hyperglycemia with dexamethasone. 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 I will coordinate evaluation by Dr. Quique Hall for HDC/autologous stem cell transplantevaluation and hold on adding Revlimid since significant response of light chains noted. I contacted Dr. Rahman of nephrology to consider reducing hemodialysis days to twice weekly. I will send myeloma labs in about 4 weeks, have him see Dr. Hall and f/u with me the following week to review plan and determine whether plan for HDC/stem cell transplant. 03/14/2020: Patient presents with his today after initiating both outpatienthemodialysis on Thursday//Saturdays and initial cycle of daratumumab, bortezomib, dexamethasone with potential addition of Revlimid after 1 month if less than optimal response. He received his first cycle of combination chemotherapy 03/12/2020. --Patient tolerated initial daratumumab infusion reasonably well with brief infusion reaction (dizziness and mild wheezing) that was treated with diphenhydramine, steroids, albuterol, and Demerol for rigors. He completed remaining infusion in an outpatient bed on the inpatient [facility] Thursday and we anticipate further weekly daratumumab infusions as an outpatient. --Patient was seen at dialysis today and noted to have hemoglobin 6.8. He will receive 1 unit of packed red blood cells prior to Velcade today for scheduled tomorrow. His was unable to be present at the hospital at time of diagnosis and his initial bone marrow biopsy was performed on 03/08/2020. She requests evaluation with him today for extensive questions regarding his care. She reported her session and requested a copy of this progress note following our visit today. 1. She asked if all the tests at the hospital returned. We discussed the teststhat are used to follow-up myeloma including his elevated IgG, elevated free kappa light chains, and elevated M spike. We discussed in detail the pathophysiology of myeloma but she felt very anxious and overwhelmed and I reassured her that we will readdress this at further follow-up visits. 2. Patient had a metastatic bone survey showing no areas of lytic disease or pathologic fractures. We discussed CRAB criteria for multiple myeloma diagnosisand that he meets criteria of R renal and A anemia, but not elevated calcium or bone disease (C and B). She specifically asked is stage of multiple myeloma andwe noted that he still will require beta-2 glycoprotein (ISS) but is most consistent with stage III. We are still awaiting his chromosomal abnormalities by fluorescence in situ hybridization and will readdress at next follow-up visitwith his final bone marrow biopsy results (this study was only performed 03/08/2020). 3. She wanted to know if his testing showed cancer elsewhere. We discussed that since metastatic bone survey showed more lytic areas I do not feel that F-18 PET is high priority but this may be ordered at some point to assess for any asymptomatic bony metastatic disease. 4. He has recently had elevated blood sugars and does not have a history of diabetes, but we discussed that with weekly steroids he should likely have additional insulin on his steroid days. I offered that this could be managed byhis primary physician Dr. Heath and he could be referred for diabetes management clinic. 5. We reiterated multiple times that his schedule may be variable. He will typically have a long infusion on Mondays with daratumumab but initially he willpresent twice weekly for Velcade injection on Mondays and . This will change during the course of his therapy and he should refer to his calendar. 6. We discussed not taking additional vitamins unless approved by nephrology. I also discussed potentially adding Revlimid and we will address at future visits if this is needed based on his follow-up labs ordered 04/02/2020. His medications may be filled either locally or with his prescription plan, but manyof these will be ordered by nephrology. He is to continue vitamin D2 as recommended by nephrology. Blood pressure medications will be regulated by primary care and nephrology. 7. We discussed concerning side effects, most commonly hyperglycemia, insomnia,risk of thrombosis (recently was diagnosed with left superficial thrombosis of the left upper extremity and additional heparin is given with his dialysis), andneuropathy with Velcade. Patients do not tend to have significant nausea or possible appetite (effects of dexamethasone increase his appetite). I cannot recommend medical marijuana and would discuss this with his pre coder whetherthis would interfere with dialysis. We will also follow closely for cytopenias and reviewed infectious precautions. He has a son from [place] who plans to visit on Thursday and we discussed COVID-19 testing appropriate social isolation protocols. 8. We discussed whether he was eligible for transplant and this will be evaluated based on his response and overall health in likely 3 to 4 months afterinitiation of therapy. We did not discuss autologous stem cell transplant in detail. We did discuss that although this is not curative therapy, many patients are controlled with medication over longer periods of time (often 5 to 6 years) with appropriate therapy. It is an aggressive cancer due to its significant infectious risk and association with renal failure. 9. Exercise may be performed as tolerated but should be done in moderation and likely we should wait a few weeks for more significant exercise given his recentdialysis and initiation of chemotherapy. I did not specifically address his diet but he may address this with our [facility] nutrition team. He will also receivechemotherapy class with our nurses in the infusion center. PRELIMINARY HISTORY (from initial consult 03/08/2020): This is a 76-year-old male who was transferred from [place] emergency room by [facility] due to critical potassium 8.7 with elevated creatinine 11.2 and BUN 82 on 03/04/2020. We do not have any recent blood work for comparison but he hadnormal creatinine in 2011. He was urgently treated for his hyperkalemia and dialysis was arranged emergently by nephrology team. He has now stabilized on dialysis and had extensive work-up for etiology of his acute renal failure with severe anemia felt to be due to anemia of renal insufficiency. Iron studies returned normal with ferritin 160, but B12 low at 84 and folate low normal at 5.2. He is receiving appropriate B12 repletion. The patient reports that he has had a prolonged period of fatigue up to a year and has decreased appetite with subjective weight loss. He denies any significant bone pain other than pain in his right shoulder and has no prior falls or recurrent back pain. He had a shoulder film showing labral pathology of the joint but no fracture or dislocation. Myeloma labs were sent showing M spike 3.6 g/dL with serum immunofixation showing IgG kappa light chain specificity. Serum IgG markedly elevated at 5312 and free kappa light chain 12,649.9 with normal free lambda light chain 11.94 free kappa/lambda ratio 1063. Hepatitis A, B, and C serologies were all negative and COVID-19 screening was negative. LORE, c-ANCA, p-ANCA, anti-GBM, and antimyeloperoxidase were all negative. Clinically the patient has multiple myeloma and I explained that we needed to proceed with bone marrow aspiration and biopsy to provide baseline for diagnosis and to expedite chemotherapy with an aggressive regimen to reduce his light chains. I will review information with him at noon today around the time of his bone marrow biopsy for combinationdaratumumab 16 mg/kg IV weekly, bortezomib 1.3 mg/kg subcu twice weekly, dexamethasone 40 mg weekly, and Revlimid 25 mg p.o. daily days 1 through 14 of each 21-day cycle. Revlimid will be ordered through a special pharmacy. We will schedule his infusions as an outpatient early next week on his nondialysis days. Written literature for these medications will be provided and he may signinformed consent so that we may order this regimen as an outpatient. The patient's is not with him today but has been treated by me for breast cancer in the past and had multiple questions. We would like to arrange a time for her to be available to ask questions and be present for chemo consent, possibly around noon today. This will need to be coordinated with nursing staffdue to [facility]- visitor restriction policy. - Summary of Therapies Summary of Therapies: Cycle 1 day 1 03/12/2020: Daratumumab 16 mg/kg IV weekly, bortezomib 1.3 mg/kg subcu twice weekly, dexamethasone 40 mg weekly. 04/09/2020: Under direction of Dr. Hall, in early April we added Revlimid 5 mg every other day of each 21-day cycle with cycle 2 due to excellent response of kappa light chains. 04/26/2020: Malignant hematology eval for possible high-dose chemotherapy/autologous stem cell transplant. He was able to stop dialysis 04/24/2020. Given Velcade only (hold daratumumab) on 07/02/2020. 07/25/2020: Melphalan 100mg/m2 IV day 0 autologous stem cell transplant 07/25/2020at [facility]. 11/26/2020: Follow-up bone marrow aspiration and biopsy 10/18/2020 for MRD evaluation shows hypocellular marrow with 0.5% plasma cells, no clonal population by flow cytometry but 0.03% kappa light chain skewing. Started Revlimid 5 mg daily for maintenance therapy early October 2020. Nondiagnostic bone marrow for MRD in spring 2021 at . Planned follow-up bone marrow biopsy for MRD at [facility] fall 2021. ROS Details: All systems reviewed & no additional complaints except as documented Subjective/ROS - Narrative: CONSTITUTIONAL: Recent worsening fatigue since HD Melphalan/ASCT 07/2020, negative for fever or night sweats. Post-transplant infections as per HPI, now resolved. HEAD AND NECK: Stable vision since control of his diabetes mellitus. Negative for changes in hearing. Negative for mouth ulcers, nasal congestion and nasal drainage. PULMONARY: Negative for chest pain, cough and dyspnea. CARDIOVASCULAR: Negative for claudication and irregular heartbeat/palpitations. Resolved edema since diagnosis, now off dialysis. GASTROINTESTINAL: Negative for abdominal pain, constipation, diarrhea, nausea orvomiting. Improved appetite and 20 kg weight loss after starting dialysis, chemotherapy, and transplant for light chain nephropathy. 11/2020--returned to baseline weight pretransplant. GENITOURINARY: Negative for dysuria and hematuria. Improved urinary output, diagnosed in February 2020 with renal failure requiring dialysis--off dialysis 04/24/2020. Prior nephrolithiasis previously followed by Dr. Seals. ENDOCRINE: Negative for cold intolerance and heat intolerance. Improvement of prior hyperglycemia with home blood sugars in the 100-200s on supplemental insulin glargine. CENTRAL NERVOUS SYSTEM: Negative for gait disturbance and headache. No focal neurologic deficits or history of stroke. 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 PSYCHIATRIC: Negative for anxiety or depression. DERMATOLOGICAL: Positive for pruritus and rash as per HPI. Negative for suspicious skin lesions. MUSCULOSKELETAL: Resolved back pain and and thigh pain. Resolved leg cramps, improved neuropathy. No longer on ferrous sulfate post transplant. HEMATOLOGICAL: Negative for bleeding and easy bruising. Negative for history of transfusion (other than 1 unit packed red blood cells prior admission). Positive for left basilic vein thrombus on Doppler ultrasound 03/12/2020--no longer requires anticoagulation. ALLERGY: Negative for environmental allergies and food allergies. PMFSH - History Attestation statement: The following information was validated with the patient. Source: Old Records Reviewed - Medical History Medical History: Medical History (Last Reviewed 01/03/22 @ 08:34 by Brook Huddleston MD) Apnea Arthritis Diabetes mellitus, type 2 Hyperlipidemia Hypertension Kidney stones Multiple myeloma Skin cancer - Family History Family History: Family History (Last Reviewed 01/03/22 @ 08:34 by Brook Huddleston MD) Sister Myocardial infarct Mother Myocardial infarct Father Skin cancer - Social History Smoking Status: Never smoker Tobacco Type: cigarettes Substance Use Type: None Home Medications & Allergies Allergies gabapentin Allergy (Verified 08/20/21 15:58) Rash Home Medications famotidine 20 mg tablet 20 mg PO DAILY #30 tab 03/10/20 [Rx Confirmed 01/02/22] insulin glargine 100 unit/mL (3 mL) subcutaneous pen (Lantus Solostar U-100 Insulin) 25 unit SUBCUT DAILY 04/27/20 [History Confirmed 01/02/22] insulin lispro 100 unit/mL subcutaneous pen (Humalog KwikPen (U-100) Insulin) 6 - 16 unit SUBCUT DIRECTED 04/27/20 [History Confirmed 01/02/22] atorvastatin 20 mg tablet 20 mg PO DAILY 10/15/20 [History Confirmed 01/02/22] cholecalciferol (vitamin D3) 50 mcg (2,000 unit) capsule (Vitamin D3) 50 mcg PO DAILY 10/15/20 [History Confirmed 01/02/22] aspirin 81 mg tablet,delayed release 81 mg PO DAILY 11/26/20 [History Confirmed 01/02/22] metformin 500 mg tablet 1,000 mg PO BID 11/26/20 [History Confirmed 01/02/22] cyanocobalamin (vitamin B-12) 1,000 mcg tablet (Vitamin B-12) 1,000 mcg PO DAILY10/03/21 [History Confirmed 01/02/22] tamsulosin 0.4 mg capsule 0.4 mg PO DAILY 10/03/21 [History Confirmed 01/02/22] lenalidomide 5 mg capsule (Revlimid) 5 mg PO DAILY 28 Days #28 cap 12/11/21 [Rx Confirmed 01/02/22] acyclovir 400 mg tablet 400 mg PO BID 60 Days #120 tab 12/26/21 [Rx Confirmed 01/02/22] Objective - Height/Weight Height/Weight: Height 5 ft 10 in Weight 88.451 kg BSA for Today's Weight 2.10 - Vital Signs Vital Signs: 01/02/22 13:25 Temperature 97.9 F Pulse Rate [Monitor] 83 Respiratory Rate 16 Blood Pressure [Left Arm] 165/81 H 02 Sat by Pulse Oximetry 99 - Pain Right Hip Pain Intensity: 5 Generalized Pain Intensity: 1 Left Upper Arm Pain Intensity: 4 Physical Exam Narrative: CONSTITUTIONAL: The patient is in no acute distress. Recent increase in fatigue. HEAD / FACE: Normocephalic. EYES: Pupils are equal and reactive to light. Conjunctivae and lids are benign in appearance. Ocular movement intact. EARS: Hearing grossly intact. NOSE / MOUTH / THROAT: Nose, mouth, tongue and oropharynx are benign in appearance. No signs of inflammation. NECK / THYROID: Neck is supple. Thyroid is symmetrical, without thyromegaly, masses or palpable nodules. LYMPHATIC: No palpable cervical, supraclavicular, axillary, or inguinal adenopathy. RESPIRATORY: Normal to inspection. Lungs clear to auscultation and percussion. No wheezing, rales, rhonchi or rubs. Normal effort. CARDIOVASCULAR: Regular rate and rhythm. No murmurs, gallops, or rubs. VASCULAR: Carotid, radial, femoral and pedal pulses present bilaterally. No bruits. ABDOMEN: Bowel sounds normoactive. Soft, nontender and non-distended. No hepatosplenomegaly. No masses. GENITOURINARY: No CVA tenderness. No suprapubic fullness or tenderness. No groinadenopathy. No evidence of hernias. INTEGUMENTARY: The skin is unremarkable. Resolved antecubital/chest rashes. No suspicious lesions BACK / SPINE: The back is nontender. No step-off deformity. No CVA tenderness. MUSCULOSKELETAL: Normal musculature, no joint deformities or abnormalities, normal range of motion for all four extremities. EXTREMITIES: No longer has bilateral lower extremity edema; no cyanosis or clubbing. No Vitor sign. NEUROLOGICAL: Alert and oriented. Cranial nerves intact. No gross motor or sensory deficits. PSYCHIATRIC: No anxiety or evidence of depression. - ECOG Performance Status ECOG Score: 1 Results - Labs Labs: Diagram of Most Recent CBC and CMP 12/26/21 16:01 12/26/21 16:01 Labs - Last 7 Days 12/26/21 16:01: Ur Random Albumin 35.4, U Random Total Protein 45.3, U Uctsk-9-Rdmlzpyp (%) 5.4, U Random e-8-Cwdtvdiw % 13.7, U Random b-Globulin % 23.9, U Random Gamma Glob % 21.5, U Random M-Anselmo (%) Comment:, Urine Random PEP Note , Urine Immunofixation 12/26/21 16:01: Serum Total Protein 6.0, Albumin (Send Out) 2.8 L, Globulin (PEP) 3.2, Albumin/Globulin (PEP) 0.9, Aclcf-0-Xbmckuatc 0.5 H, Enwwv-9-Mpksyiwwf 1.0, Beta Globulins 0.9, Gamma Globulins 0.9, M-Anselmo Not observed, PEP Note , Homocysteine Cardiovas 17.5, IgG 944, IgA 250, IgM 33, Serum Immunofixation , Free [place] LC, Quant 38.9 H, Free Lambda LC, Quant 29.7 H, Free [place]/Lambda Ratio 1.31 12/26/21 16:01: PHA Creatinine Clear 47.88, Sodium 135 L, Potassium 3.9, Chloride 103, Carbon Dioxide 20.5 L, BUN 18, Creatinine 1.47 H, Est GFR (AfricanAmer) 56, Est GFR (Non-Af Amer) 47, Glucose 84, Calcium 9.0, Iron 102, TIBC 141 L, Iron Saturation 72.0 H, Transferrin 101 L, Ferritin 663.4 H, Total Bilirubin 0.5, AST 23, ALT 30, Alkaline Phosphatase 112 H, Total Protein 6.4, Albumin 2.9 L, Globulin 3.5, Albumin/Globulin Ratio 0.8 12/26/21 16:01: Corrected WBC 4.0 L, Uncorrected WBC Count 4.0 L, RBC 2.15 L, Hgb 8.0 L, Hct 22.8 L, MCV 106.0 H, MCH 37.2 H, MCHC 35.1, RDW 21.6 H, Plt Qzevk661 L, MPV 8.2, Neut % (Auto) 63.5, Lymph % (Auto) 20.4, [place] % (Auto) 5.7, Eos % (Auto) 9.7, Baso % (Auto) 0.7, Neut # (Auto) 2.5, Lymph # (Auto) 0.8 L, [place] #(Auto) 0.2, Eos # (Auto) 0.4, Baso # (Auto) 0.0, Nucleated RBC % (auto) 0.0 - Impressions Date of Service: 09/16/21 XR/XR bone survey: surveillance Plain film bone survey HISTORY: History of multiple myeloma. No lytic or sclerotic lesion identified. Multilevel spondylosis identified. Calvarium intact. No fracture seen. Atherosclerosis noted. XR/XR bone survey IMPRESSION: No bony lesions. 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 He had marked elevation in IgG kappa on initial laboratory work-up for renal failure in February 2020. He has remained hemodynamically stable and I discussed in detail with the patient the pathophysiology of multiple myeloma and associated injury to kidneys, persistentanemia, bone disease, and potential hypercalcemia (we do not see hypercalcemia in this patient). He consented to inpatient bone marrow biopsy 03/08/2020 which was diagnostic for multiple myeloma--70% plasma cells without amyloid depositionidentified in small marrow specimen. Normal baseline skeletal survey. I reviewed pathophysiology of myeloma, results of bone marrow biopsy, skeletal survey, and myeloma labs with the patient and his . Patsy consented to begin first cycle Daratumumab, Velcade, and dexamethasone on03/12/2020--other than infusion reaction from first Daratumumab, improved with symptomatic therapy. I reviewed his case with Dr. Quique Hall of Mal[facility] H[facility]--added Revlimid 5mg qod following significant reduction of light chains in early April 2020. 05/07/2020: As per HPI, Angel and his met with Dr. Hall 04/26/2020 with preparation for likely high-dose chemotherapy/autologous peripheral stem cell transplant if he meets criteria based on cardiopulmonary work-up. He has had greater than 90%. The patient was able to discontinue hemodialysis on 04/24/2020 and has not had any recurrence of edema with now improved renal function, creatinine clearance now 53. --I will continue current therapy with further evaluation by Dr. Hall in 1 month for planning his HDC/autologous stem cell transplant. We will send repeatmyeloma labs (SPEP, IgG, kappa/lambda light chains) in 4 weeks with f/u visit with me the following week to review results as well as evaluation with Dr. Hall for possible stem cell transplant. 06/04/2020: Tolerating chemotherapy well other than increasing neuropathy of hands and feet. Dose reduced Velcade by 25% next cycle. Added daily ferrous sulfate. --He was referred to diabetes management clinic and sees Dr. Heath with regularfollow-up by Dr. Rahman since he is off dialysis. Diabetes control improved. 07/02/2020: Last dose of Velcade today. Neuropathy is stable and pain is well controlled. He will have COVID-19 test on 07/11/2020 for planned admission for stem cell collection on 07/17/2020 then high-dose melphalan followed by peripheral blood stem cell transplant day 0 scheduled 07/23/2020. His next follow-up with me will be in about 4 months after he is completed day 100 transplant follow-up. He may return sooner as needed. 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 Melphalan 100mg/m2 + ASCT Day 0 07/25/2020. 11/26/2020: Followup of [facility] end of therapy bone marrow biopsy 10/18/2020--no minimal residual disease. Started Revlimid maintenance 5mg daily in early October2020. 02/27/2021: No new symptoms other than rash. Slow improvement of neuropathy--titrating off gabapentin with palliative medicine. Benadryl for rash. Continue Revlimid 5mg daily. He will be due for first post transplant vaccines sooner--will check schedule with . 05/30/2021: Rash and neuropathy improved. Tolerating Revlimid well. Discussedcoronavirus booster and influenza vaccines. Post transplant vaccines due in 07/2021. No M-spike and normal kappa/lambda ratio. 10/03/2021: Multiple admissions for hyperkalemia, renal insufficiency due to dehydration, anemia requiring transfusion. Still feels weak and dizzy and his electrolyte disorders are being managed by primary care. No detectable M spike's and kappa/lambda light chain ratio is normal with elevated levels of both likely due to recent infections. Skeletal survey without new lytic lesions. He is due for MRD bone marrow follow-up with Dr. Hall next month. For now continue Revlimid 5 mg daily. 01/02/2022: Patient presents with his who is concerned with increasing fatigue. He has had a decline in his hemoglobin to 8 although his renal function is actually improved from prior values with creatinine clearance of 50. We sent serum iron profile showing increased iron stores with iron saturation 72% and ferritin 663. Homocystine was normal methylmalonic acid is pending. Sedrick also send an erythropoietin level to see if there may be a benefit to adding erythropoietin for anemia of chronic kidney disease. He will continue to follow with Dr. Meade. He still has no M spike on serum protein electrophoresis and normal kappa/lambda light chain ratio. MRD testing at [facility] was nondiagnostic and he will have repeat bone marrow biopsy here with me to send MRD testing. Next followup with me in 3 months for exam and f/u myeloma labs. We will coordinate his bone marrow biopsy at that time. He will continue follow-up by nephrology for chronic kidney disease although his prior hyperkalemia has improved on recent labs. May return sooner if new issues arise. This is a moderate complexity visit over 35 minutes for symptom and lab review, address multiple comorbidities, and followup plan with patient and his . (2) Anemia of renal disease Hemoglobin has decreased to 8 and iron stores show increased iron saturation andferritin. He no longer takes supplemental iron but has ongoing B12 repletion 1 mg p.o. daily. Methylmalonic acid is pending to assess whether B12 repletion isadequate. We are also sending an erythropoietin level and if methylmalonic acidis normal, we will initiate erythropoietin therapy for anemia of chronic kidney disease. I will update nephrology if decision to add erythrocyte stimulating agent therapy. I will contact him with these results and coordinate repletion therapy. In addition the patient is on chronic Revlimid which it is myelosuppressive. (3) History of hemodialysis Initiated inpatient hemodialysis 02/2020, then transitioned to outpatient hemodialysis 3 times weekly Thursday//Thursday schedule. Chemotherapy given Thursday/. 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 He was actually able to stop dialysis within 2 months with the last session 04/24/2020 as noted above. Now 18 months after Melphalan 100mg/m2 + autologous PBSCT given his significant response to initial myeloma directed therapy. Continued f/u with nephrology for stage III chronic kidney disease/resolved hyperkalemia. (4) Steroid-induced diabetes mellitus Qualifiers: Encounter type: subsequent encounter Qualified Code(s): E09.9 - Drug or chemical induced diabetes mellitus without complications; T38.0X5D - Adverse effect of glucocorticoids and synthetic analogues, subsequent encounter Patsy had an excellent response of light chains but was noted to have significant hyperglycemia 300-500 fasting blood sugars. He was referred to diabetes management clinic with addition of insulin therapy that has significantly improved control of his blood sugars. Patient also had remarked on some blurredvision that improved with control of blood sugars. Continue follow-up of blood sugars during admission for transplant in early July. 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 Resumed low dose metformin and titrating down insulin--directed by his primary physician. (5) B12 deficiency Patient was found to have B12 deficiency and was been placed on daily B12 prior to hospital discharge. We continued weekly IM B12 for 8 weeks with his myeloma regimen. Hemoglobin is improved on Aranesp and weekly B12, then changed to monthly maintenance therapy. He has not required further blood transfusions since 03/15/2020. Follow- up methylmalonic acid on 04/30/2020 was normal showing adequate replacement. He will continue monthly IM B12 and weekly vitamin D2 therapy 50,000 units orally for low 25 hydroxy vitamin D stores. He may take supplemental calcium once daily. -- Repeat methylmalonic acid pending today and will contact with results and anyadjustment of B12 if needed. (6) Encounter for chemotherapy management Started cycle 1 day 1 03/12/2020: Daratumumab 16 mg/kg IV weekly, bortezomib 1.3 mg/kg subcu twice weekly, dexamethasone 40 mg weekly. We added Revlimid 5 mg every other day of each 21-day cycle with cycle 2 due to excellent reduction of kappa light chains (recommended by Dr. Hall malignanthematology). 06/04/2020: 25% Bortezumab (100% all other meds) due to worsening neuropathy. Last dose of 4009 07/02/2020) and holding daratumumab per request of Dr. Hall. 07/25/2020: Melphalan 100mg/m2 + autologous PBSCT 10/18/2020: Started Revlimid 5 mg daily maintenance after bone marrow biopsy negative for MRD. Repeat MRD bone marrow at [facility] in 3 months because spring bone marrow was nondiagnostic. - Chemo Plan Chemo Plan (Dose, Rate, Freq): 09/25/2019: Melphalan 100mg/m2 + autologous PBSCT-->10/2020 Revlimid 5mg daily maintenance after MRD bone marrow biopsy. Goal of Treatment: Control - Time with Patient Time Spent with Patient (Follow Up Visit): 35 minutes - Review monoclonal labs and manage worsening anemia. Coordination of Care & Counseling Time: Greater than 50% of time spent with patient was for coordination of care (as documented) and [id number] counseling of patient and/or family. Dictated By: Brook Huddleston MD DD/ [id number] Signed By: <Electronically signed by MD Brook Huddleston> 01/03/22 [address] [facility] Work Phone: [phone] 917-834704-26-2022 Hospital Discharge instructions Patient Education 12/10/2021 10:54:55 Benign Prostatic Hyperplasia Benign Prostatic Hyperplasia Benign prostatic hyperplasia (BPH) is an enlarged prostate gland that is caused by the normal agingprocess and not by cancer. The prostate is a walnut-sized gland that is involved in the production of semen. It is located in front of the rectum and below the bladder. The bladder stores urine and the urethra is the tube that carries the urine out of the body. The prostate may get bigger as a man gets older. An enlarged prostate can press on the urethra. This can make it harder to pass urine. The build-up of urine in the bladder can cause infection. Back pressure and infection may progress to bladder damage and kidney (renal) failure. What are the causes? This condition is part of a normal aging process. However, not all men develop problems from this condition. If the prostate enlarges away from the urethra, urine flow will not be blocked. If it enlarges toward the urethra and compresses it, there will be problems passing urine. What increases the risk? This condition is more likely to develop in men over the age of 50 years. What are the signs or symptoms? Symptoms of this condition include: Getting up often during the night to urinate. Needing to urinate frequently during the day. Difficulty starting urine flow. Decrease in size and strength of your urine stream. Leaking (dribbling) after urinating. Inability to pass urine. This needs immediate treatment. Inability to completely empty your bladder. Pain when you pass urine. This is more common if there is also an infection. Urinary tract infection (UTI). How is this diagnosed? This condition is diagnosed based on your medical history, a physical exam, and your symptoms. Tests will also be done, such as: A post-void bladder scan. This measures any amount of urine that may remain in your bladder after you finish urinating. A digital rectal exam. In a rectal exam, your health care provider checks your prostate by putting a lubricated, gloved finger into your rectum to feel the back of your prostate gland. This exam detects the size of your gland and any abnormal lumps or growths. An exam of your urine (urinalysis). A prostate specific antigen (PSA) screening. This is a blood test used to screen for prostate cancer. An ultrasound. This test uses sound waves to electronically produce a picture of your prostate gland. Your health care provider may refer you to a specialist in kidney and prostate diseases (urologist). How is this treated? Once symptoms begin, your health care provider will monitor your condition (active surveillance or watchful waiting). Treatment for this condition will depend on the severity of your condition. Treatment may include: Observation and yearly exams. This may be the only treatment needed if your condition and symptoms are mild. Medicines to relieve your symptoms, including: ?Medicines to shrink the prostate. ?Medicines to relax the muscle of the prostate. Surgery in severe cases. Surgery may include: ?Prostatectomy. In this procedure, the prostate tissue is removed completely through an open incision or with a laparoscope or robotics. ?Transurethral resection of the prostate (TURP). In this procedure, a tool is inserted through the opening at the tip of the penis (urethra). It is used to cut away tissue of the inner core of the prostate. The pieces are removed through the same opening of the penis. This removes the blockage. ?Transurethral incision (TUIP). In this procedure, small cuts are made in the prostate. This lessens the prostate's pressure on the urethra. ?Transurethral microwave thermotherapy (TUMT). This procedure uses microwaves to create heat. The heat destroys and removes a small amount of prostate tissue. ?Transurethral needle ablation (TUNA). This procedure uses radio frequencies to destroy and remove a small amount of prostate tissue. ?Interstitial laser coagulation (ILC). This procedure uses a laser to destroy and remove a small amount of prostate tissue. ?Transurethral electrovaporization (TUVP). This procedure uses electrodes to destroy and remove a small amount of prostate tissue. ?Prostatic urethral lift. This procedure inserts an implant to push the lobes of the prostate away from the urethra. Follow these instructions at home: Take [id number] and prescription medicines only as told by your health care provider. Monitor your symptoms for any changes. Contact your health care provider with any changes. Avoid drinking large amounts of liquid before going to bed or out in public. Avoid or reduce how much caffeine or alcohol you drink. Give yourself time when you urinate. Keep all follow-up visits as told by your health care provider. This is important. Contact a health care provider if: You have unexplained back pain. Your symptoms do not get better with treatment. You develop side effects from the medicine you are taking. Your urine becomes very dark or has a bad smell. Your lower abdomen becomes distended and you have trouble passing your urine. Get help right away if: You have a fever or chills. You suddenly cannot urinate. You feel lightheaded, or very dizzy, or you faint. There are large amounts of blood or clots in the urine. Your urinary problems become hard to manage. You develop moderate to severe low back or flank pain. The flank is the side of your body between the ribs and the hip. These symptoms may represent a serious problem that is an emergency. Do not wait to see if the symptoms will go away. Get medical help right away. Call your local emergency services (911 in the [place] Do not drive yourself to the hospital. Summary Benign prostatic hyperplasia (BPH) is an enlarged prostate that is caused by the normal aging process and not by cancer. An enlarged prostate can press on the urethra. This can make it hard to pass urine. This condition is part of a normal aging process and is more likely to develop in men over the age of 50 years. Get help right away if you suddenly cannot urinate. This information is not intended to replace advice given to you by your health care provider. Make sure you discuss any questions you have with your health care provider. Document Released: 08/03/2006 Document Revised: 06/28/2019 Document Reviewed: 09/07/2017 [employer] Patient Education 2020 [employer] Follow Up Care 11/13/2020 14:21:59 With:Arnel Urban MD, Patsy Payne, URO Address: [facility] [address], [place] [address]- When: Unknown Comments:after procedure [facility] 04-14-2022 NotePre-procedure Verification and Time Out: Pre-Procedure Verification and Time Out: Procedure Locationprocedure area HUDDLE - Pre-procedure Verificationcompleted TIME OUT - Final Verificationcompleted immediately prior to procedure start DEBRIEFcompleted General Information: Anesthesia Critical Care: Non-Anesthesia Post-Procedure Diagnosis: Myeloma Procedure Name: Bone marrow biopsy Findings: grossly normal anatomy Procedure performed by: ga Head Of Merchandise Buying(s): Brook Restrepo Estimated Blood Loss (mL): none Specimen: yes Informed Consent: written consent obtained Procedure Details: Procedure Details: The patient was consented. The risks, benefits, and alternatives of procedures were discussed. The patient wishes to proceed. Consent form was signed. Time-out was taken to verify correct patient, procedure, and location of procedure. Sterile technique was used for the entire procedure. The patient was positioned prone. The left posterior iliac crest was prepped, draped in sterile manner. Area was anesthetized with 8 ml of 1% lidocaine with good response. A Jamshidi needle was used to obtain bone marrow aspirate for flow cytometry, heme path protocol, plus core biopsy. The patient tolerated procedure well, had minimal bleeding. Pressure was applied to the bone marrow biopsy site for about 2 minutes. Sterile dressing was placed over bone marrow biopsy. Furthermore, the patient was instructed if any signs of infection, bleeding, or severe pain to immediately notify MD. Medication allergies reviewed on EMR. Tolerance: good Electronic Signatures: Suly Motta ([employer]) (Signed 28-Nov-2021 10:51) Authored: Pre-procedure Verification and Time Out, General Information, Procedure Details, Note Completion Last Updated: 28-Nov-2021 10:51 by Suly Motta ([employer])[facility]04-14-2022 NoteClinic Note: Education Assessment: Learning BarriersNo barriers TaughtPatient Primary Language of PatientEnglish Blood: Topic(s): BloodLab Results MethodVerbal, Handout EvaluationTeaches back, States general concept, Needs reinforcement Safety: Topic(s): SafetyFalls Prevention, Safety at Home MethodVerbal EvaluationTeaches back, States general concept, Needs reinforcement Treatment/Procedures: Topic(s): Treatment/ProceduresBone Marrow Biospy MethodVerbal, Handout, Demonstration EvaluationTeaches back, States general concept, Needs reinforcement Electronic Signatures: Violetta Bundy (RN) (Signed 28-Nov-2021 10:36) Authored: Education Assessment, Blood, Safety, Treatment/Procedures Last Updated: 28-Nov-2021 10:36 by Violetta Bundy (RN)[facility] 10-29-2021 Evaluation note* Encounter Date Diagnosis Assessment Notes Treatment Notes Treatment Clinical Notes Oct, RINA (acute kidney injury) (ICD-10 - N17.9) had RINA Aug 2021 from prerenal related to dehydration and low BP. Kidney function improved with RBC transfusion and IVF. Cr is 1.1 mg./dl as per yesterday lab currently off lasix Oct, Hypertensive chronic kidney disease w stg 1-4/unsp chr kdny (ICD-10 - I12.9) BP is well controlled off hydralazine. No need for BP meds Oct, Type 2 diabetes mellitus with hyperglycemia (ICD-10 - E11.65) Diabetes seem well controlled. 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 Serum creatinine is 1.0 to 1.1 mg deciliter at baseline. Last creatinine is at baseline Protein continuation 500 mg/g. I explained the patient the necessity of keeping diabetes well controlled to attenuate CKD progression Pressure well controlled Volume is well controlled no need for diuretics Avoid NSAIDs Follow-up Oct, HTN (hypertension) (ICD-10 - I10) No need for blood pressure medicine Oct, Multiple myeloma (ICD-10 - C90.00) Patient was diagnosed with multiple myeloma on March 04, 2020. He has a good response to chemotherapy. He had stem cell transplant at on July 23, 2020. Oct, Diabetes mellitus (ICD-10 - E11.9) He stated that diabetes is better on insulin. He is of dexamethasone. Oct, Nephrolithiasis (ICD-10 - N20.0) Patient had history of nephrolithiasis. Bilateral kidney ultrasound that was done at the time of admission on March 04, 2020 showed no evidence of kidney stones or obstructive uropathy. Oct, Anemia, unspecified type (ICD-10 - D64.9) Patient has symptomatic anemia with dizziness and fatigue. Hemoglobin from lab yesterday 6.9 g/dL. I will order 2 RBCs units transfusion. Patient is also following the infusion center for B12 injection. He follows with Dr. Rosenberg Oct, Hyperkalemia (ICD-10 - E87.5) Patient had RINA with hyperkalemia in August 2021. Hyperkalemia was likely from RINA and being on potassium supplement. This was treated medically. Last potassium level 3.4 mmol/L from yesterday lab. I will continue holding potassium supplement as the patient is now off PrePay Other 02-18-2022 Progress note Author [facility] October 04, 2021 1:57pm Note Date/Time October 03, 2021 1:23pm [facility] [place] [address] Hem/Onc Follow Up Note - OP Signed Patient: Patsy Mills MR#: [id number] : 1945 Acct:[id number] Age/Sex: 76 / M Type: REG RCR Copies to: MD Siva Jaramillo MD Richard R Keller, MD~ Subjective Date/Time of Service: Date of Service: 10/03/2021 Time of Service: 13:22 Chief Complaint: Patient is here today for 4 month follow up visit for 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 He is fatiqued and weak and dizzy at times. He also gets cold and shakey. He has had recent hospital stay at [facility] HPI: 10/03/2021: Pasty is here for 4-month follow-up of light chain myeloma. His brought me a thorough list of his recent hospitalizations since early August 2021. Recurrent weakness and dizziness as per chief complaint. --August 20 he was treated for UTI at [facility] ER, thenadmitted August 24 to [place] with dehydration and urosepsis with discharge August 29. 09/05/[address] Heath for continued antibiotics with Bactrim DS. Urine also returned positive for candidiasis and he was treated with fluconazole daily. He stopped his hydralazine and Lasix. --09/17/2021: He returned for labs and skeletal survey at [facility] and his potassium on blood work was markedly elevated. We contacted him and advised ER evaluation at [facility]. His potassium returned at 7.3 and he required hydration, calcium gluconate, insulin with bicarb, and had a negative Covid test. He was admitted and had unremarkable renal ultrasound, transfused 1 unit of blood for hemoglobin 7.3. Potassium and creatinine normalized and he was discharged home on 09/19/2021. Since that time he has had some improvement of energy but still has poor appetite and mild weakness. No fever, chills, or sweats. I will have him follow-up with nephrology and Dr. Heath for management of his potassium and creatinine. He denies any abdominal pain or bone pain and is otherwise compliant with maintenance Revlimid 5 mg daily. --Labs from 09/16/2021 did show mild elevation in creatinine 3.9 likely due to his electrolyte disturbances. His creatinine had increased from 1.29-2.11 likely due to dehydration. Serum M spike was not observed, but urine M spike was detected at 6.9. Urine immunofixation did not show monoclonal population and his urine M spike is likely due to his recent urinary infections. Serum kappa and lambda light chains were both elevated to 62.1 and 38.7 respectively with normal kappa/lambda ratio 1.6. Skeletal survey did not show any lytic lesions. At this time I would not change his maintenance Revlimid. He is due for follow-up with Dr. Hall at [facility] hematology in late October for 1 year follow-up bone marrow biopsy for MRD status. His next follow-up with me will be in 3 months or sooner as needed. 05/30/2021: 3 month followup--still no new symptoms. We discussed coronavirus booster, then flu vaccine, then will have post transplant vaccines in June. He is off gabapentin and rash resolved. Tolerates Revlimid 5mg daily. Stable kappa/lambda ratio--no M-spike serum and urine testing. Quant immunoglobulins normal. I will f/u with myeloma labs in 3 months--CBC, CMP, SPEP, quant IGs, kappa/lambda light chains and beta2 microglobulin. He and his are in agreement with this plan. Low complexity visit. 02/27/2021: Here for 3-month follow-up, prior autologous stem cell transplant 07/25/2020. No limitations of daily activities--normal appetite, denies pain. Previously noted increased rash over bilateral antecubital areas, chest and back. He is titrating off gabapentin due to improving neuropathy and rash mildly better. Still on Revlimid 5mg daily. Uses benadryl prn for pruritus andrash. Will contact for post transplant vaccines. Stable kappa/lambda ratio--no M-spike serum and urine testing. Quant immunoglobulins normal. I will f/u with myeloma labs in 3 months--CBC, CMP, SPEP, quant IGs, kappa/lambda light chains and beta2 microglobulin. He and his are in agreement with this plan. 11/26/2020: Patsy is here for followup after D86 bone marrow biopsy at [facility] on 10/18/2020. No evidence of MRD--0.5% plasma cells andno clonal plasma cells suggestive of residual myeloma. Tolerating maintenance Revlimid 5mg daily well. No bone pain and normal renal function--Dr. Vincent hasreleased for annual nephrology followup. He is fully vaccinated for [id number] and I contacted Dr. Hall for coordination of post transplant vaccines. Stable neuropathy with gabapentin escalated to 400mg am, 300mg midday, 400mg pm. Continues followup with palliative medicine. He has phone f/u with Dr. Hall later this week. I will f/u with myeloma labs in 3 months--CBC, CMP, SPEP, quant IGs, kappa/lambda light chains and beta2 microglobulin. He and his are in agreement with this plan. 10/15/2020: Patsy is here with his for transfer of care after Melphalan 100mg/m2 autologous stem cell transplant D0 = 07/25/2021. He is now D+83 and oneweek ago, he saw Dr. Hall for survivorship visit. We reviewed his post transplant course and prior infections have now resolved. Blood counts have recovered and renal function at prior baseline. He has persistent neuropathy ongabapentin 200mg am, 100mg noon, 200mg pm. I'm setting him up for palliative consultation (previously followed by WILFREDO Olivia). He has a followup bone marrow biopsy scheduled with Dr. Hall in 3 days to document remission. I will discuss with him the plan after bone marrow biopsy--I briefly discussed Revlimidmaintenance with Mr. Mills and his . I will contact patient after bone marrow results to confirm plan with Dr. Hall and f/u with him in about 6 weeks with myeloma labs. 07/02/2020: Patsy has completed all of his pretransplant evaluation at [facility] including cardiology visit 11 which showed ejection fraction 60%. I have contacted Dr. Hall who noted that today will be his last day of Velcade and we will hold his daratumumab. He was to have a COVID-19 test on 07/11/2020 for planned stem cell collection 07/17 and transplant on 07/23. I clarified with the staff at [facility] this this may be performed at [facility] and forwarded to them. 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 His pain mainly in hips is about 3 out of 10 and controlled with Percocet. His next follow-up with me jaime be in about 4 months when he is post transplant although I am happy to see him sooner if new issues arise in his post transplant course that need to bemanaged closer to home. His most recent labs reveal improving hemoglobin (11.5), stable renal function (creatinine 1.35), normal calcium, and appropriateresponse of kappa light chain to now normal 18 with K/L ratio 2.02. 06/04/2020: Met with Dr. Hall on 05/24/2020 to discuss planning for high-dose chemotherapy peripheral blood stem cell transplant. He has now hemodialysis independent after daratumumab, dexamethasone, and Velcade with addition of Revlimid. Today he reports that he has had increased neuropathy symptoms in hisbilateral hands and feet with mild interference with activity (grade 2). We discussed a 25% dose reduction of Velcade on day 1, day 4, day 8, day 11 with current cycle of DVdR. He has some leg cramps at night, with normal magnesium, but low iron saturation noted--will start daily iron for symptoms. Otherwise heis tolerating therapy well and creatinine is now normal. He was given educationfor the transplant course and he is scheduled in late June after [facility] to proceed with stem cell collection and transplant. I will communicate with Dr. Hall regarding end of therapy and in 1 month I will see him with follow-up myeloma studies. No other new concerns today. 05/07/2020: Patsy is here for 1 month follow-up. Outpatient hemodialysis was stopped after 04/24/2020 due to excellent response. He was evaluated by Dr. Small at [facility] on 04/26/2020. Angel and his note that Dr. Hall felt that he was physiologically about 8 years younger than his chronologic age and would likely be transplant eligible if pretransplant work-updeems this feasible. He recommended continuing current daratumumab and Velcade with low-dose Revlimid. He will reevaluate patient in 1 month and likely plan admission for stem cell collection, then high-dose chemotherapy/autologous stem cell transplantation in June or July. The patient's was concerned that she did not understand much of the pretransplant teaching and I explained to her and Don the pathophysiology of plasma cells, light chains, his improving trend of renal function, goal of 90% kappa/lambda ratio reduction prior to transplant. We also refilled Revlimid 5 mg every other day, weekly vitamin D, and I am giving him a trial of tramadol 50 mg every 12 hours as Tylenol is not effective for his pain and we are avoiding NSAIDs and additional aspirin. He otherwise has no toxicities of chemotherapy. He sees Dr. Heath for follow-up tomorrow and maintains insulin with stabilization of his blood sugars following with diabetes management clinic. I will see him in follow-up with myeloma labs in 1 month plan end of therapy prior to transplant. 04/09/2020: Here for one month f/u with his . He continues outpatient hemodialysis on Thursday//Saturdays. He notes fatigue, but generalized edema remarkably improved with no significant pain. I reviewed his M-spike, IgGand kappa light chains with K/L ratio that has remarkably improved (>90% reduction past month). [place] light chains decreased from 12,000 to 42. Only concern is significant hyperglycemia with dexamethasone. 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 I will coordinate evaluation by Dr. Quique Hall for HDC/autologous stem cell transplantevaluation and hold on adding Revlimid since significant response of light chains noted. I contacted Dr. Rahman of nephrology to consider reducing hemodialysis days to twice weekly. I will send myeloma labs in about 4 weeks, have him see Dr. Hall and f/u with me the following week to review plan and determine whether plan for HDC/stem cell transplant. 03/14/2020: Patient presents with his today after initiating both outpatienthemodialysis on Thursday//Saturdays and initial cycle of daratumumab, bortezomib, dexamethasone with potential addition of Revlimid after 1 month if less than optimal response. He received his first cycle of combination chemotherapy 03/12/2020. --Patient tolerated initial daratumumab infusion reasonably well with brief infusion reaction (dizziness and mild wheezing) that was treated with diphenhydramine, steroids, albuterol, and Demerol for rigors. He completed remaining infusion in an outpatient bed on the inpatient [facility] Thursday and we anticipate further weekly daratumumab infusions as an outpatient. --Patient was seen at dialysis today and noted to have hemoglobin 6.8. He will receive 1 unit of packed red blood cells prior to Velcade today for scheduled tomorrow. His was unable to be present at the hospital at time of diagnosis and his initial bone marrow biopsy was performed on 03/08/2020. She requests evaluation with him today for extensive questions regarding his care. She reported her session and requested a copy of this progress note following our visit today. 1. She asked if all the tests at the hospital returned. We discussed the teststhat are used to follow-up myeloma including his elevated IgG, elevated free kappa light chains, and elevated M spike. We discussed in detail the pathophysiology of myeloma but she felt very anxious and overwhelmed and I reassured her that we will readdress this at further follow-up visits. 2. Patient had a metastatic bone survey showing no areas of lytic disease or pathologic fractures. We discussed CRAB criteria for multiple myeloma diagnosisand that he meets criteria of R renal and A anemia, but not elevated calcium or bone disease (C and B). She specifically asked is stage of multiple myeloma andwe noted that he still will require beta-2 glycoprotein (ISS) but is most consistent with stage III. We are still awaiting his chromosomal abnormalities by fluorescence in situ hybridization and will readdress at next follow-up visitwith his final bone marrow biopsy results (this study was only performed 03/08/2020). 3. She wanted to know if his testing showed cancer elsewhere. We discussed that since metastatic bone survey showed more lytic areas I do not feel that F-18 PET is high priority but this may be ordered at some point to assess for any asymptomatic bony metastatic disease. 4. He has recently had elevated blood sugars and does not have a history of diabetes, but we discussed that with weekly steroids he should likely have additional insulin on his steroid days. I offered that this could be managed byhis primary physician Dr. Heath and he could be referred for diabetes management clinic. 5. We reiterated multiple times that his schedule may be variable. He will typically have a long infusion on Mondays with daratumumab but initially he willpresent twice weekly for Velcade injection on Mondays and . This will change during the course of his therapy and he should refer to his calendar. 6. We discussed not taking additional vitamins unless approved by nephrology. I also discussed potentially adding Revlimid and we will address at future visits if this is needed based on his follow-up labs ordered 04/02/2020. His medications may be filled either locally or with his prescription plan, but manyof these will be ordered by nephrology. He is to continue vitamin D2 as recommended by nephrology. Blood pressure medications will be regulated by primary care and nephrology. 7. We discussed concerning side effects, most commonly hyperglycemia, insomnia,risk of thrombosis (recently was diagnosed with left superficial thrombosis of the left upper extremity and additional heparin is given with his dialysis), andneuropathy with Velcade. Patients do not tend to have significant nausea or possible appetite (effects of dexamethasone increase his appetite). I cannot recommend medical marijuana and would discuss this with his pre coder whetherthis would interfere with dialysis. We will also follow closely for cytopenias and reviewed infectious precautions. He has a son from [place] who plans to visit on Thursday and we discussed COVID-19 testing appropriate social isolation protocols. 8. We discussed whether he was eligible for transplant and this will be evaluated based on his response and overall health in likely 3 to 4 months afterinitiation of therapy. We did not discuss autologous stem cell transplant in detail. We did discuss that although this is not curative therapy, many patients are controlled with medication over longer periods of time (often 5 to 6 years) with appropriate therapy. It is an aggressive cancer due to its significant infectious risk and association with renal failure. 9. Exercise may be performed as tolerated but should be done in moderation and likely we should wait a few weeks for more significant exercise given his recentdialysis and initiation of chemotherapy. I did not specifically address his diet but he may address this with our [facility] nutrition team. He will also receivechemotherapy class with our nurses in the infusion center. PRELIMINARY HISTORY (from initial consult 03/08/2020): This is a 76-year-old male who was transferred from [place] emergency room by [facility] due to critical potassium 8.7 with elevated creatinine 11.2 and BUN 82 on 03/04/2020. We do not have any recent blood work for comparison but he hadnormal creatinine in 2011. He was urgently treated for his hyperkalemia and dialysis was arranged emergently by nephrology team. He has now stabilized on dialysis and had extensive work-up for etiology of his acute renal failure with severe anemia felt to be due to anemia of renal insufficiency. Iron studies returned normal with ferritin 160, but B12 low at 84 and folate low normal at 5.2. He is receiving appropriate B12 repletion. The patient reports that he has had a prolonged period of fatigue up to a year and has decreased appetite with subjective weight loss. He denies any significant bone pain other than pain in his right shoulder and has no prior falls or recurrent back pain. He had a shoulder film showing labral pathology of the joint but no fracture or dislocation. Myeloma labs were sent showing M spike 3.6 g/dL with serum immunofixation showing IgG kappa light chain specificity. Serum IgG markedly elevated at 5312 and free kappa light chain 12,649.9 with normal free lambda light chain 11.94 free kappa/lambda ratio 1063. Hepatitis A, B, and C serologies were all negative and COVID-19 screening was negative. LORE, c-ANCA, p-ANCA, anti-GBM, and antimyeloperoxidase were all negative. Clinically the patient has multiple myeloma and I explained that we needed to proceed with bone marrow aspiration and biopsy to provide baseline for diagnosis and to expedite chemotherapy with an aggressive regimen to reduce his light chains. I will review information with him at noon today around the time of his bone marrow biopsy for combinationdaratumumab 16 mg/kg IV weekly, bortezomib 1.3 mg/kg subcu twice weekly, dexamethasone 40 mg weekly, and Revlimid 25 mg p.o. daily days 1 through 14 of each 21-day cycle. Revlimid will be ordered through a special pharmacy. We will schedule his infusions as an outpatient early next week on his nondialysis days. Written literature for these medications will be provided and he may signinformed consent so that we may order this regimen as an outpatient. The patient's is not with him today but has been treated by me for breast cancer in the past and had multiple questions. We would like to arrange a time for her to be available to ask questions and be present for chemo consent, possibly around noon today. This will need to be coordinated with nursing staffdue to COVID-19 visitor restriction policy. - Summary of Therapies Summary of Therapies: Cycle 1 day 1 03/12/2020: Daratumumab 16 mg/kg IV weekly, bortezomib 1.3 mg/kg subcu twice weekly, dexamethasone 40 mg weekly. 04/09/2020: Under direction of Dr. Hall, in early April we added Revlimid 5 mg every other day of each 21-day cycle with cycle 2 due to excellent response of kappa light chains. 04/26/2020: Malignant hematology eval for possible high-dose chemotherapy/autologous stem cell transplant. He was able to stop dialysis 04/24/2020. Given Velcade only (hold daratumumab) on 07/02/2020. 07/25/2020: Melphalan 100mg/m2 IV day 0 autologous stem cell transplant 07/25/2020at [facility]. 11/26/2020: Follow-up bone marrow aspiration and biopsy 10/18/2020 for MRD evaluation shows hypocellular marrow with 0.5% plasma cells, no clonal population by flow cytometry but 0.03% kappa light chain skewing. Started Revlimid 5 mg daily for maintenance therapy early October 2020. ROS Details: All systems reviewed & no additional complaints except as documented Subjective/ROS - Narrative: CONSTITUTIONAL: Improved fatigue since HD Melphalan/ASCT 07/2020, negative for fever or night sweats. Post-transplant infections as per HPI, now resolved. HEAD AND NECK: Stable vision since control of his diabetes mellitus. Negative for changes in hearing. Negative for mouth ulcers, nasal congestion and nasal drainage. PULMONARY: Negative for chest pain, cough and dyspnea. CARDIOVASCULAR: Negative for claudication and irregular heartbeat/palpitations. Resolved edema since diagnosis, now off dialysis. GASTROINTESTINAL: Negative for abdominal pain, constipation, diarrhea, nausea orvomiting. Improved appetite and 20 kg weight loss after starting dialysis, chemotherapy, and transplant for light chain nephropathy. 11/2020--returned to baseline weight pretransplant. GENITOURINARY: Negative for dysuria and hematuria. Improved urinary output, diagnosed in February 2020 with renal failure requiring dialysis--off dialysis 04/24/2020. Prior nephrolithiasis previously followed by Dr. Seals. ENDOCRINE: Negative for cold intolerance and heat intolerance. Improvement of prior hyperglycemia with home blood sugars in the 100-200s on supplemental insulin glargine. CENTRAL NERVOUS SYSTEM: Negative for gait disturbance and headache. No focal neurologic deficits or history of stroke. 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 PSYCHIATRIC: Negative for anxiety or depression. DERMATOLOGICAL: Positive for pruritus and rash as per HPI. Negative for suspicious skin lesions. MUSCULOSKELETAL: Resolved back pain and and thigh pain. Resolved leg cramps, improved neuropathy. No longer on ferrous sulfate post transplant. HEMATOLOGICAL: Negative for bleeding and easy bruising. Negative for history of transfusion (other than 1 unit packed red blood cells prior admission). Positive for left basilic vein thrombus on Doppler ultrasound 03/12/2020--no longer requires anticoagulation. ALLERGY: Negative for environmental allergies and food allergies. [facility] - Medical History Medical History: Medical History (Last Updated 08/20/21 @ 15:59 by Tank Engle II, RN) Apnea Arthritis Diabetes mellitus, type 2 Hyperlipidemia Hypertension Kidney stones Multiple myeloma Skin cancer - Family History Family History: Family History (Last Reviewed 08/20/21 @ 15:58 by Tank Engle II, RN) Sister Myocardial infarct Mother Myocardial infarct Father Skin cancer - Social History Smoking Status: Never smoker Tobacco Type: cigarettes Substance Use Type: None Home Medications & Allergies Allergies gabapentin Allergy (Verified 08/20/21 15:58) Rash Home Medications famotidine 20 mg tablet 20 mg PO DAILY #30 tab 03/10/20 [Rx Confirmed 08/20/21] insulin glargine 100 unit/mL (3 mL) subcutaneous pen (Lantus Solostar U-100 Insulin) 12 unit SUBCUT DAILY 04/27/20 [History Confirmed 05/30/21] insulin lispro 100 unit/mL subcutaneous pen (Humalog KwikPen (U-100) Insulin) 6 - 16 unit SUBCUT DIRECTED 04/27/20 [History Confirmed 05/30/21] atorvastatin 20 mg tablet 20 mg PO DAILY 10/15/20 [History Confirmed 08/20/21] cholecalciferol (vitamin D3) 50 mcg (2,000 unit) capsule (Vitamin D3) 50 mcg PO DAILY 10/15/20 [History Confirmed 05/30/21] aspirin 81 mg tablet,delayed release 81 mg PO DAILY 11/26/20 [History Confirmed 08/20/21] metformin 500 mg tablet 1,000 mg PO BID 11/26/20 [History Confirmed 08/20/21] acyclovir 400 mg tablet 400 mg PO BID 60 Days #120 tab 06/17/21 [Rx Confirmed 08/20/21] lenalidomide 5 mg capsule (Revlimid) 5 mg PO DAILY 28 Days #28 cap 09/12/21 [Rx] cyanocobalamin (vitamin B-12) 1,000 mcg tablet (Vitamin B-12) 1,000 mcg PO DAILY 10/03/21 [History Confirmed 10/03/21] tamsulosin 0.4 mg capsule 0.4 mg PO DAILY 10/03/21 [History Confirmed 10/03/21] Objective - Height/Weight Height/Weight: Height 5 ft 10 in Weight 88.451 kg BSA for Today's Weight 2.10 - Vital Signs Vital Signs: 10/03/21 13:14 Temperature 98.0 F Pulse Rate [Monitor] 78 Respiratory Rate 20 Blood Pressure [Left Arm] 162/66 H 02 Sat by Pulse Oximetry 98 - Pain Right Hip Pain Intensity: 5 Generalized Pain Intensity: 1 Left Upper Arm Pain Intensity: 4 Results - Labs Labs: Diagram of Most Recent CBC and CMP 09/16/21 10:03 09/16/21 10:03 Labs from 09/16/2021 did show mild elevation in creatinine 3.9 likely due to his electrolyte disturbances. His creatinine had increased from 1.29-2.11 likely due to dehydration. Serum M spike was not observed, but urine M spike was detected at 6.9. Urine immunofixation did not show monoclonal population and his urine M spike is likely due to his recent urinary infections. Serum kappa and lambda light chains were both elevated to 62.1 and 38.7 respectively with normal kappa/lambda ratio 1.6. - Impressions Plain film bone survey HISTORY: History of multiple myeloma. No lytic or sclerotic lesion identified. Multilevel spondylosis identified. Calvarium intact. No fracture seen. Atherosclerosis noted. XR/XR bone survey IMPRESSION: No bony lesions. 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 He had marked elevation in IgG kappa on initial laboratory work-up for renal failure in February 2020. He has remained hemodynamically stable and I discussed in detail with the patient the pathophysiology of multiple myeloma and associated injury to kidneys, persistentanemia, bone disease, and potential hypercalcemia (we do not see hypercalcemia in this patient). He consented to inpatient bone marrow biopsy 03/08/2020 which was diagnostic for multiple myeloma--70% plasma cells without amyloid depositionidentified in small marrow specimen. Normal baseline skeletal survey. I reviewed pathophysiology of myeloma, results of bone marrow biopsy, skeletal survey, and myeloma labs with the patient and his . Patsy consented to begin first cycle Daratumumab, Velcade, and dexamethasone on03/12/2020--other than infusion reaction from first Daratumumab, improved with symptomatic therapy. I reviewed his case with Dr. Quique Hall of Mal[facility] H[facility]--added Revlimid 5mg qod following significant reduction of light chains in early April 2020. 05/07/2020: As per HPI, Angel and his met with Dr. Hall 04/26/2020 with preparation for likely high-dose chemotherapy/autologous peripheral stem cell transplant if he meets criteria based on cardiopulmonary work-up. He has had greater than 90%. The patient was able to discontinue hemodialysis on 04/24/2020 and has not had any recurrence of edema with now improved renal function, creatinine clearance now 53. --I will continue current therapy with further evaluation by Dr. Hall in 1 month for planning his HDC/autologous stem cell transplant. We will send repeatmyeloma labs (SPEP, IgG, kappa/lambda light chains) in 4 weeks with f/u visit with me the following week to review results as well as evaluation with Dr. Hall for possible stem cell transplant. 06/04/2020: Tolerating chemotherapy well other than increasing neuropathy of hands and feet. Dose reduced Velcade by 25% next cycle. Added daily ferrous sulfate. --He was referred to diabetes management clinic and sees Dr. Heath with regularfollow-up by Dr. Rahman since he is off dialysis. Diabetes control improved. 07/02/2020: Last dose of Velcade today. Neuropathy is stable and pain is well controlled. He will have COVID-19 test on 07/11/2020 for planned admission for stem cell collection on 07/17/2020 then high-dose melphalan followed by peripheral blood stem cell transplant day 0 scheduled 07/23/2020. His next follow-up with ga will be in about 4 months after he is completed day 100 transplant follow-up. He may return sooner as needed. 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 Melphalan 100mg/m2 + ASCT Day 0 07/25/2020. 11/26/2020: Followup of [facility] end of therapy bone marrow biopsy 10/18/2020--no minimal residual disease. Started Revlimid maintenance 5mg daily in early October2020. 02/27/2021: No new symptoms other than rash. Slow improvement of neuropathy--titrating off gabapentin with palliative medicine. Benadryl for rash. Continue Revlimid 5mg daily. He will be due for first post transplant vaccines sooner--will check schedule with . 05/30/2021: Rash and neuropathy improved. Tolerating Revlimid well. Discussedcoronavirus booster and influenza vaccines. Post transplant vaccines due in 07/2021. No M-spike and normal kappa/lambda ratio. 10/03/2021: Multiple admissions for hyperkalemia, renal insufficiency due to dehydration, anemia requiring transfusion. Still feels weak and dizzy and his electrolyte disorders are being managed by primary care. No detectable M spike's and kappa/lambda light chain ratio is normal with elevated levels of both likely due to recent infections. Skeletal survey without new lytic lesions. He is due for MRD bone marrow follow-up with Dr. Hall next month. For now continue Revlimid 5 mg daily. Next followup with ga in 3 months for exam and f/u myeloma labs. He will be seen by nephrology later this month due to his recurrent hyperkalemia. May return sooner if new issues arise. This is a moderate complexity visit over 35 minutes for symptom and lab review, address multiple comorbidities and recent hospitalizations, and followup plan with patient and his . (2) Chemotherapy-induced peripheral neuropathy 25% dose reduction Velcade prior to stem cell transplant due to reports of increased pain from neuropathy in fingers and feet. Worsening symptoms after transplant, referred back to palliative medicine for further management. Gabapentin titrated from 400mg/300mg/400mg to now 200/100/200 off over the past 3 months--will continue to followup with palliative medicine as needed. (3) Iron deficiency anemia Prior leg cramps with low iron saturation. Ferritin inappropriately normal due to inflammation from myeloma. Daily oral iron added due to symptomatic leg cramps and persistent anemia. He reports transfusion due to hemoglobin 7.7 at outside facility and this may be managed by his primary physician. (4) History of hemodialysis Initiated inpatient hemodialysis 02/2020, then transitioned to outpatient hemodialysis 3 times weekly Thursday//Thursday schedule. Chemotherapy given Thursday/. 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 He was actually able to stop dialysis within 2 months with the last session 04/24/2020 as noted above. Now 15 months after Melphalan 100mg/m2 + autologous PBSCT given his significant response to initial myeloma directed therapy. Continued f/u with nephrology for recent hyperkalemia. (5) Steroid-induced diabetes mellitus Qualifiers: Encounter type: subsequent encounter Qualified Code(s): E09.9 - Drug or chemical induced diabetes mellitus without complications; T38.0X5D - Adverse effect of glucocorticoids and synthetic analogues, subsequent encounter Patsy had an excellent response of light chains but was noted to have significant hyperglycemia 300-500 fasting blood sugars. He was referred to diabetes management clinic with addition of insulin therapy that has significantly improved control of his blood sugars. Patient also had remarked on some blurred vision that improved with control of blood sugars. Continue follow-up of blood sugars during admission for transplant in early July. 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 Resumed low dose metformin and titrating down insulin--directed by his primary physician. (6) B12 deficiency Patient was found to have B12 deficiency and was been placed on daily B12 prior to hospital discharge. We continued weekly IM B12 for 8 weeks with his myeloma regimen. Hemoglobin is improved on Aranesp and weekly B12, then changed to monthly maintenance therapy. He has not required further blood transfusions since 03/15/2020. Follow- up methylmalonic acid on 04/30/2020 was normal showing adequate replacement. He will continue monthly IM B12 and weekly vitamin D2 therapy 50,000 units orally for low 25 hydroxy vitamin D stores. He may take supplemental calcium once daily. (7) Encounter for chemotherapy management Started cycle 1 day 1 03/12/2020: Daratumumab 16 mg/kg IV weekly, bortezomib 1.3 mg/kg subcu twice weekly, dexamethasone 40 mg weekly. We added Revlimid 5 mg every other day of each 21-day cycle with cycle 2 due to excellent reduction of kappa light chains (recommended by Dr. Hall malignanthematology). 06/04/2020: 25% DR Bortezumab (100% all other meds) due to worsening neuropathy. Last dose of 4009 07/02/2020) and holding daratumumab per request of Dr. Hall. 07/25/2020: Melphalan 100mg/m2 + autologous PBSCT 10/18/2020: Started Revlimid 5 mg daily maintenance after bone marrow biopsy negative for MRD. Next follow-up MRD bone marrow at in 1 month - Chemo Plan Chemo Plan (Dose, Rate, Freq): 07/25/2020: Melphalan 100mg/m2 + autologous PBSCT-->10/2020 Revlimid 5mg daily maintenance after MRD bone marrow biopsy. Goal of Treatment: Control - Time with Patient Time Spent with Patient (Follow Up Visit): 35 minutes Coordination of Care & Counseling Time: Greater than 50% of time spent with patient was for coordination of care (as documented) and [id number] counseling of patient and/or family. Dictated By: Brook Huddleston MD DD/ [id number] Signed By: <Electronically signed by MD Brook Huddleston> 10/04/21 [address] [facility] Work Phone: [phone] Progress note Author Brook Huddleston [facility] October 04, 2021 1:57pm Note Date/Time October 03, 2021 1:23pm [facility] [place] [address] Hem/Onc Follow Up Note - OP Signed Patient: Patsy Mills MR#: [id number] : 1945 Acct:[id number] Age/Sex: 76 / M Type: REG RCR Copies to: MD Siva Jaramillo MD Richard R Keller, MD~ Subjective Date/Time of Service: Date of Service: 10/03/2021 Time of Service: 13:22 Chief Complaint: Patient is here today for 4 month follow up visit for 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 He is fatiqued and weak and dizzy at times. He also gets cold and shakey. He has had recent hospital stay at [facility] HPI: 10/03/2021: Patsy is here for 4-month follow-up of light chain myeloma. His brought me a thorough list of his recent hospitalizations since early August 2021. Recurrent weakness and dizziness as per chief complaint. --August 20 he was treated for UTI at [facility] ER, thenadmitted August 24 to [place] with dehydration and urosepsis with discharge August 29. 09/05/[address] Heath for continued antibiotics with Bactrim DS. Urine also returned positive for candidiasis and he was treated with fluconazole daily. He stopped his hydralazine and Lasix. --09/17/2021: He returned for labs and skeletal survey at [facility] and his potassium on blood work was markedly elevated. We contacted him and advised ER evaluation at [facility]. His potassium returned at 7.3 and he required hydration, calcium gluconate, insulin with bicarb, and had a negative Covid test. He was admitted and had unremarkable renal ultrasound, transfused 1 unit of blood for hemoglobin 7.3. Potassium and creatinine normalized and he was discharged home on 09/19/2021. Since that time he has had some improvement of energy but still has poor appetite and mild weakness. No fever, chills, or sweats. I will have him follow-up with nephrology and Dr. Heath for management of his potassium and creatinine. He denies any abdominal pain or bone pain and is otherwise compliant with maintenance Revlimid 5 mg daily. --Labs from 09/16/2021 did show mild elevation in creatinine 3.9 likely due to his electrolyte disturbances. His creatinine had increased from 1.29-2.11 likely due to dehydration. Serum M spike was not observed, but urine M spike was detected at 6.9. Urine immunofixation did not show monoclonal population and his urine M spike is likely due to his recent urinary infections. Serum kappa and lambda light chains were both elevated to 62.1 and 38.7 respectively with normal kappa/lambda ratio 1.6. Skeletal survey did not show any lytic lesions. At this time I would not change his maintenance Revlimid. He is due for follow-up with Dr. Hall at [facility] malignant hematology in late October for 1 year follow-up bone marrow biopsy for MRD status. His next follow-up with me will be in 3 months or sooner as needed. 05/30/2021: 3 month followup--still no new symptoms. We discussed coronavirus booster, then flu vaccine, then will have post transplant vaccines in June. He is off gabapentin and rash resolved. Tolerates Revlimid 5mg daily. Stable kappa/lambda ratio--no M-spike serum and urine testing. Quant immunoglobulins normal. I will f/u with myeloma labs in 3 months--CBC, CMP, SPEP, quant IGs, kappa/lambda light chains and beta2 microglobulin. He and his are in agreement with this plan. Low complexity visit. 02/27/2021: Here for 3-month follow-up, prior autologous stem cell transplant 07/25/2020. No limitations of daily activities--normal appetite, denies pain. Previously noted increased rash over bilateral antecubital areas, chest and back. He is titrating off gabapentin due to improving neuropathy and rash mildly better. Still on Revlimid 5mg daily. Uses benadryl prn for pruritus andrash. Will contact for post transplant vaccines. Stable kappa/lambda ratio--no M-spike serum and urine testing. Quant immunoglobulins normal. I will f/u with myeloma labs in 3 months--CBC, CMP, SPEP, quant IGs, kappa/lambda light chains and beta2 microglobulin. He and his are in agreement with this plan. 11/26/2020: Patsy is here for followup after D86 bone marrow biopsy at [facility] on 10/18/2020. No evidence of MRD--0.5% plasma cells andno clonal plasma cells suggestive of residual myeloma. Tolerating maintenance Revlimid 5mg daily well. No bone pain and normal renal function--Dr. Vincent hasreleased for annual nephrology followup. He is fully vaccinated for [id number] and I contacted Dr. Hall for coordination of post transplant vaccines. Stable neuropathy with gabapentin escalated to 400mg am, 300mg midday, 400mg pm. Continues followup with palliative medicine. He has phone f/u with Dr. Hall later this week. I will f/u with myeloma labs in 3 months--CBC, CMP, SPEP, quant IGs, kappa/lambda light chains and beta2 microglobulin. He and his are in agreement with this plan. 10/15/2020: Patsy is here with his for transfer of care after Melphalan 100mg/m2 autologous stem cell transplant D0 = 07/25/2021. He is now D+83 and oneweek ago, he saw Dr. Hall for survivorship visit. We reviewed his post transplant course and prior infections have now resolved. Blood counts have recovered and renal function at prior baseline. He has persistent neuropathy ongabapentin 200mg am, 100mg noon, 200mg pm. I'm setting him up for palliative consultation (previously followed by [facility]). He has a followup bone marrow biopsy scheduled with Dr. Hall in 3 days to document remission. I will discuss with him the plan after bone marrow biopsy--I briefly discussed Revlimidmaintenance with Mr. Mills and his . I will contact patient after bone marrow results to confirm plan with Dr. Hall and f/u with him in about 6 weeks with myeloma labs. 07/02/2020: Patsy has completed all of his pretransplant evaluation at [facility] including cardiology visit 11 which showed ejection fraction 60%. I have contacted Dr. Hall who noted that today will be his last day of Velcade and we will hold his daratumumab. He was to have a COVID-19 test on 07/11/2020 for planned stem cell collection 07/17 and transplant on 07/23. I clarified with the staff at [facility] this this may be performed at [facility] and forwarded to them. 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 His pain mainly in hips is about 3 out of 10 and controlled with Percocet. His next follow-up with me jaime be in about 4 months when he is post transplant although I am happy to see him sooner if new issues arise in his post transplant course that need to bemanaged closer to home. His most recent labs reveal improving hemoglobin (11.5), stable renal function (creatinine 1.35), normal calcium, and appropriateresponse of kappa light chain to now normal 18 with K/L ratio 2.02. 06/04/2020: Met with Dr. Hall on 05/24/2020 to discuss planning for high-dose chemotherapy peripheral blood stem cell transplant. He has now hemodialysis independent after daratumumab, dexamethasone, and Velcade with addition of Revlimid. Today he reports that he has had increased neuropathy symptoms in hisbilateral hands and feet with mild interference with activity (grade 2). We discussed a 25% dose reduction of Velcade on day 1, day 4, day 8, day 11 with current cycle of DVdR. He has some leg cramps at night, with normal magnesium, but low iron saturation noted--will start daily iron for symptoms. Otherwise heis tolerating therapy well and creatinine is now normal. He was given educationfor the transplant course and he is scheduled in late June after Thanksgiving to proceed with stem cell collection and transplant. I will communicate with Dr. Hall regarding end of therapy and in 1 month I will see him with follow-up myeloma studies. No other new concerns today. 05/07/2020: Patsy is here for 1 month follow-up. Outpatient hemodialysis was stopped after 04/24/2020 due to excellent response. He was evaluated by Dr. Small at [facility] on 04/26/2020. Angel and his note that Dr. Hall felt that he was physiologically about 8 years younger than his chronologic age and would likely be transplant eligible if pretransplant work-updeems this feasible. He recommended continuing current daratumumab and Velcade with low-dose Revlimid. He will reevaluate patient in 1 month and likely plan admission for stem cell collection, then high-dose chemotherapy/autologous stem cell transplantation in June or July. The patient's was concerned that she did not understand much of the pretransplant teaching and I explained to her and Don the pathophysiology of plasma cells, light chains, his improving trend of renal function, goal of 90% kappa/lambda ratio reduction prior to transplant. We also refilled Revlimid 5 mg every other day, weekly vitamin D, and I am giving him a trial of tramadol 50 mg every 12 hours as Tylenol is not effective for his pain and we are avoiding NSAIDs and additional aspirin. He otherwise has no toxicities of chemotherapy. He sees Dr. Heath for follow-up tomorrow and maintains insulin with stabilization of his blood sugars following with diabetes management clinic. I will see him in follow-up with myeloma labs in 1 month plan end of therapy prior to transplant. 04/09/2020: Here for one month f/u with his . He continues outpatient hemodialysis on Thursday//Saturdays. He notes fatigue, but generalized edema remarkably improved with no significant pain. I reviewed his M-spike, IgGand kappa light chains with K/L ratio that has remarkably improved (>90% reduction past month). [place] light chains decreased from 12,000 to 42. Only concern is significant hyperglycemia with dexamethasone. 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 I will coordinate evaluation by Dr. Quique Hall for HDC/autologous stem cell transplantevaluation and hold on adding Revlimid since significant response of light chains noted. I contacted Dr. Rahman of nephrology to consider reducing hemodialysis days to twice weekly. I will send myeloma labs in about 4 weeks, have him see Dr. Hall and f/u with me the following week to review plan and determine whether plan for HDC/stem cell transplant. 03/14/2020: Patient presents with his today after initiating both outpatienthemodialysis on Thursday//Saturdays and initial cycle of daratumumab, bortezomib, dexamethasone with potential addition of Revlimid after 1 month if less than optimal response. He received his first cycle of combination chemotherapy 03/12/2020. --Patient tolerated initial daratumumab infusion reasonably well with brief infusion reaction (dizziness and mild wheezing) that was treated with diphenhydramine, steroids, albuterol, and Demerol for rigors. He completed remaining infusion in an outpatient bed on the inpatient [facility] Thursday and we anticipate further weekly daratumumab infusions as an outpatient. --Patient was seen at dialysis today and noted to have hemoglobin 6.8. He will receive 1 unit of packed red blood cells prior to Velcade today for scheduled tomorrow. His was unable to be present at the hospital at time of diagnosis and his initial bone marrow biopsy was performed on 03/08/2020. She requests evaluation with him today for extensive questions regarding his care. She reported her session and requested a copy of this progress note following our visit today. 1. She asked if all the tests at the hospital returned. We discussed the teststhat are used to follow-up myeloma including his elevated IgG, elevated free kappa light chains, and elevated M spike. We discussed in detail the pathophysiology of myeloma but she felt very anxious and overwhelmed and I reassured her that we will readdress this at further follow-up visits. 2. Patient had a metastatic bone survey showing no areas of lytic disease or pathologic fractures. We discussed CRAB criteria for multiple myeloma diagnosisand that he meets criteria of R renal and A anemia, but not elevated calcium or bone disease (C and B). She specifically asked is stage of multiple myeloma andwe noted that he still will require beta-2 glycoprotein (ISS) but is most consistent with stage III. We are still awaiting his chromosomal abnormalities by fluorescence in situ hybridization and will readdress at next follow-up visitwith his final bone marrow biopsy results (this study was only performed 03/08/2020). 3. She wanted to know if his testing showed cancer elsewhere. We discussed that since metastatic bone survey showed more lytic areas I do not feel that F-18 PET is high priority but this may be ordered at some point to assess for any asymptomatic bony metastatic disease. 4. He has recently had elevated blood sugars and does not have a history of diabetes, but we discussed that with weekly steroids he should likely have additional insulin on his steroid days. I offered that this could be managed byhis primary physician Dr. Heath and he could be referred for diabetes management clinic. 5. We reiterated multiple times that his schedule may be variable. He will typically have a long infusion on Mondays with daratumumab but initially he willpresent twice weekly for Velcade injection on Mondays and . This will change during the course of his therapy and he should refer to his calendar. 6. We discussed not taking additional vitamins unless approved by nephrology. I also discussed potentially adding Revlimid and we will address at future visits if this is needed based on his follow-up labs ordered 04/02/2020. His medications may be filled either locally or with his prescription plan, but manyof these will be ordered by nephrology. He is to continue vitamin D2 as recommended by nephrology. Blood pressure medications will be regulated by primary care and nephrology. 7. We discussed concerning side effects, most commonly hyperglycemia, insomnia,risk of thrombosis (recently was diagnosed with left superficial thrombosis of the left upper extremity and additional heparin is given with his dialysis), andneuropathy with Velcade. Patients do not tend to have significant nausea or possible appetite (effects of dexamethasone increase his appetite). I cannot recommend medical marijuana and would discuss this with his pre coder whetherthis would interfere with dialysis. We will also follow closely for cytopenias and reviewed infectious precautions. He has a son from [place] who plans to visit on Thursday and we discussed COVID-19 testing appropriate social isolation protocols. 8. We discussed whether he was eligible for transplant and this will be evaluated based on his response and overall health in likely 3 to 4 months afterinitiation of therapy. We did not discuss autologous stem cell transplant in detail. We did discuss that although this is not curative therapy, many patients are controlled with medication over longer periods of time (often 5 to 6 years) with appropriate therapy. It is an aggressive cancer due to its significant infectious risk and association with renal failure. 9. Exercise may be performed as tolerated but should be done in moderation and likely we should wait a few weeks for more significant exercise given his recentdialysis and initiation of chemotherapy. I did not specifically address his diet but he may address this with our [facility] nutrition team. He will also receivechemotherapy class with our nurses in the infusion center. PRELIMINARY HISTORY (from initial consult 03/08/2020): This is a 76-year-old male who was transferred from [place] emergency room by [facility] due to critical potassium 8.7 with elevated creatinine 11.2 and BUN 82 on 03/04/2020. We do not have any recent blood work for comparison but he hadnormal creatinine in 2011. He was urgently treated for his hyperkalemia and dialysis was arranged emergently by nephrology team. He has now stabilized on dialysis and had extensive work-up for etiology of his acute renal failure with severe anemia felt to be due to anemia of renal insufficiency. Iron studies returned normal with ferritin 160, but B12 low at 84 and folate low normal at 5.2. He is receiving appropriate B12 repletion. The patient reports that he has had a prolonged period of fatigue up to a year and has decreased appetite with subjective weight loss. He denies any significant bone pain other than pain in his right shoulder and has no prior falls or recurrent back pain. He had a shoulder film showing labral pathology of the joint but no fracture or dislocation. Myeloma labs were sent showing M spike 3.6 g/dL with serum immunofixation showing IgG kappa light chain specificity. Serum IgG markedly elevated at 5312 and free kappa light chain 12,649.9 with normal free lambda light chain 11.94 free kappa/lambda ratio 1063. Hepatitis A, B, and C serologies were all negative and COVID-19 screening was negative. LORE, c-ANCA, p-ANCA, anti-GBM, and antimyeloperoxidase were all negative. Clinically the patient has multiple myeloma and I explained that we needed to proceed with bone marrow aspiration and biopsy to provide baseline for diagnosis and to expedite chemotherapy with an aggressive regimen to reduce his light chains. I will review information with him at noon today around the time of his bone marrow biopsy for combinationdaratumumab 16 mg/kg IV weekly, bortezomib 1.3 mg/kg subcu twice weekly, dexamethasone 40 mg weekly, and Revlimid 25 mg p.o. daily days 1 through 14 of each 21-day cycle. Revlimid will be ordered through a special pharmacy. We will schedule his infusions as an outpatient early next week on his nondialysis days. Written literature for these medications will be provided and he may signinformed consent so that we may order this regimen as an outpatient. The patient's is not with him today but has been treated by me for breast cancer in the past and had multiple questions. We would like to arrange a time for her to be available to ask questions and be present for chemo consent, possibly around noon today. This will need to be coordinated with nursing staffdue to [facility]- visitor restriction policy. - Summary of Therapies Summary of Therapies: Cycle 1 day 1 03/12/2020: Daratumumab 16 mg/kg IV weekly, bortezomib 1.3 mg/kg subcu twice weekly, dexamethasone 40 mg weekly. 04/09/2020: Under direction of Dr. Hall, in early April we added Revlimid 5 mg every other day of each 21-day cycle with cycle 2 due to excellent response of kappa light chains. 04/26/2020: Malignant hematology eval for possible high-dose chemotherapy/autologous stem cell transplant. He was able to stop dialysis 04/24/2020. Given Velcade only (hold daratumumab) on 07/02/2020. 07/25/2020: Melphalan 100mg/m2 IV day 0 autologous stem cell transplant 07/25/2020at [facility]. 11/26/2020: Follow-up bone marrow aspiration and biopsy 10/18/2020 for MRD evaluation shows hypocellular marrow with 0.5% plasma cells, no clonal population by flow cytometry but 0.03% kappa light chain skewing. Started Revlimid 5 mg daily for maintenance therapy early October 2020. ROS Details: All systems reviewed & no additional complaints except as documented Subjective/ROS - Narrative: CONSTITUTIONAL: Improved fatigue since HD Melphalan/ASCT 07/2020, negative for fever or night sweats. Post-transplant infections as per HPI, now resolved. HEAD AND NECK: Stable vision since control of his diabetes mellitus. Negative for changes in hearing. Negative for mouth ulcers, nasal congestion and nasal drainage. PULMONARY: Negative for chest pain, cough and dyspnea. CARDIOVASCULAR: Negative for claudication and irregular heartbeat/palpitations. Resolved edema since diagnosis, now off dialysis. GASTROINTESTINAL: Negative for abdominal pain, constipation, diarrhea, nausea orvomiting. Improved appetite and 20 kg weight loss after starting dialysis, chemotherapy, and transplant for light chain nephropathy. 11/2020--returned to baseline weight pretransplant. GENITOURINARY: Negative for dysuria and hematuria. Improved urinary output, diagnosed in February 2020 with renal failure requiring dialysis--off dialysis 04/24/2020. Prior nephrolithiasis previously followed by Dr. Seals. ENDOCRINE: Negative for cold intolerance and heat intolerance. Improvement of prior hyperglycemia with home blood sugars in the 100-200s on supplemental insulin glargine. CENTRAL NERVOUS SYSTEM: Negative for gait disturbance and headache. No focal neurologic deficits or history of stroke. 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 PSYCHIATRIC: Negative for anxiety or depression. DERMATOLOGICAL: Positive for pruritus and rash as per HPI. Negative for suspicious skin lesions. MUSCULOSKELETAL: Resolved back pain and and thigh pain. Resolved leg cramps, improved neuropathy. No longer on ferrous sulfate post transplant. HEMATOLOGICAL: Negative for bleeding and easy bruising. Negative for history of transfusion (other than 1 unit packed red blood cells prior admission). Positive for left basilic vein thrombus on Doppler ultrasound 03/12/2020--no longer requires anticoagulation. ALLERGY: Negative for environmental allergies and food allergies. [facility] - Medical History Medical History: Medical History (Last Updated 08/20/21 @ 15:59 by Tank Engle II, EVY) Apnea Arthritis Diabetes mellitus, type 2 Hyperlipidemia Hypertension Kidney stones Multiple myeloma Skin cancer - Family History Family History: Family History (Last Reviewed 08/20/21 @ 15:58 by Tank Engle II, RN) Sister Myocardial infarct Mother Myocardial infarct Father Skin cancer - Social History Smoking Status: Never smoker Tobacco Type: cigarettes Substance Use Type: None Home Medications & Allergies Allergies gabapentin Allergy (Verified 08/20/21 15:58) Rash Home Medications famotidine 20 mg tablet 20 mg PO DAILY #30 tab 03/10/20 [Rx Confirmed 08/20/21] insulin glargine 100 unit/mL (3 mL) subcutaneous pen (Lantus Solostar U-100 Insulin) 12 unit SUBCUT DAILY 04/27/20 [History Confirmed 05/30/21] insulin lispro 100 unit/mL subcutaneous pen (Humalog KwikPen (U-100) Insulin) 6 - 16 unit SUBCUT DIRECTED 04/27/20 [History Confirmed 05/30/21] atorvastatin 20 mg tablet 20 mg PO DAILY 10/15/20 [History Confirmed 08/20/21] cholecalciferol (vitamin D3) 50 mcg (2,000 unit) capsule (Vitamin D3) 50 mcg PO DAILY 10/15/20 [History Confirmed 05/30/21] aspirin 81 mg tablet,delayed release 81 mg PO DAILY 11/26/20 [History Confirmed 08/20/21] metformin 500 mg tablet 1,000 mg PO BID 11/26/20 [History Confirmed 08/20/21] acyclovir 400 mg tablet 400 mg PO BID 60 Days #120 tab 06/17/21 [Rx Confirmed 08/20/21] lenalidomide 5 mg capsule (Revlimid) 5 mg PO DAILY 28 Days #28 cap 09/12/21 [Rx] cyanocobalamin (vitamin B-12) 1,000 mcg tablet (Vitamin B-12) 1,000 mcg PO DAILY 10/03/21 [History Confirmed 10/03/21] tamsulosin 0.4 mg capsule 0.4 mg PO DAILY 10/03/21 [History Confirmed 10/03/21] Objective - Height/Weight Height/Weight: Height 5 ft 10 in Weight 88.451 kg BSA for Today's Weight 2.10 - Vital Signs Vital Signs: 10/03/21 13:14 Temperature 98.0 F Pulse Rate [Monitor] 78 Respiratory Rate 20 Blood Pressure [Left Arm] 162/66 H 02 Sat by Pulse Oximetry 98 - Pain Right Hip Pain Intensity: 5 Generalized Pain Intensity: 1 Left Upper Arm Pain Intensity: 4 Results - Labs Labs: Diagram of Most Recent CBC and CMP 09/16/21 10:03 09/16/21 10:03 Labs from 09/16/2021 did show mild elevation in creatinine 3.9 likely due to his electrolyte disturbances. His creatinine had increased from 1.29-2.11 likely due to dehydration. Serum M spike was not observed, but urine M spike was detected at 6.9. Urine immunofixation did not show monoclonal population and his urine M spike is likely due to his recent urinary infections. Serum kappa and lambda light chains were both elevated to 62.1 and 38.7 respectively with normal kappa/lambda ratio 1.6. - Impressions Plain film bone survey HISTORY: History of multiple myeloma. No lytic or sclerotic lesion identified. Multilevel spondylosis identified. Calvarium intact. No fracture seen. Atherosclerosis noted. XR/XR bone survey IMPRESSION: No bony lesions. 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 He had marked elevation in IgG kappa on initial laboratory work-up for renal failure in February 2020. He has remained hemodynamically stable and I discussed in detail with the patient the pathophysiology of multiple myeloma and associated injury to kidneys, persistentanemia, bone disease, and potential hypercalcemia (we do not see hypercalcemia in this patient). He consented to inpatient bone marrow biopsy 03/08/2020 which was diagnostic for multiple myeloma--70% plasma cells without amyloid depositionidentified in small marrow specimen. Normal baseline skeletal survey. I reviewed pathophysiology of myeloma, results of bone marrow biopsy, skeletal survey, and myeloma labs with the patient and his . Patsy consented to begin first cycle Daratumumab, Velcade, and dexamethasone on03/12/2020--other than infusion reaction from first Daratumumab, improved with symptomatic therapy. I reviewed his case with Dr. Quique Hall of Malignant Hematology--added Revlimid 5mg qod following significant reduction of light chains in early April 2020. 05/07/2020: As per HPI, Angel and his met with Dr. Hall 04/26/2020 with preparation for likely high-dose chemotherapy/autologous peripheral stem cell transplant if he meets criteria based on cardiopulmonary work-up. He has had greater than 90%. The patient was able to discontinue hemodialysis on 04/24/2020 and has not had any recurrence of edema with now improved renal function, creatinine clearance now 53. --I will continue current therapy with further evaluation by Dr. Hall in 1 month for planning his HDC/autologous stem cell transplant. We will send repeatmyeloma labs (SPEP, IgG, kappa/lambda light chains) in 4 weeks with f/u visit with me the following week to review results as well as evaluation with Dr. Hall for possible stem cell transplant. 06/04/2020: Tolerating chemotherapy well other than increasing neuropathy of hands and feet. Dose reduced Velcade by 25% next cycle. Added daily ferrous sulfate. --He was referred to diabetes management clinic and sees Dr. Heath with regularfollow-up by Dr. Rahman since he is off dialysis. Diabetes control improved. 07/02/2020: Last dose of Velcade today. Neuropathy is stable and pain is well controlled. He will have COVID-19 test on 07/11/2020 for planned admission for stem cell collection on 07/17/2020 then high-dose melphalan followed by peripheral blood stem cell transplant day 0 scheduled 07/23/2020. His next follow-up with me will be in about 4 months after he is completed day 100 transplant follow-up. He may return sooner as needed. 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 Melphalan 100mg/m2 + ASCT Day 0 07/25/2020. 11/26/2020: Followup of [facility] end of therapy bone marrow biopsy 10/18/2020--no minimal residual disease. Started Revlimid maintenance 5mg daily in early October2020. 02/27/2021: No new symptoms other than rash. Slow improvement of neuropathy--titrating off gabapentin with palliative medicine. Benadryl for rash. Continue Revlimid 5mg daily. He will be due for first post transplant vaccines sooner--will check schedule with . 05/30/2021: Rash and neuropathy improved. Tolerating Revlimid well. Discussedcoronavirus booster and influenza vaccines. Post transplant vaccines due in 07/2021. No M-spike and normal kappa/lambda ratio. 10/03/2021: Multiple admissions for hyperkalemia, renal insufficiency due to dehydration, anemia requiring transfusion. Still feels weak and dizzy and his electrolyte disorders are being managed by primary care. No detectable M spike's and kappa/lambda light chain ratio is normal with elevated levels of both likely due to recent infections. Skeletal survey without new lytic lesions. He is due for MRD bone marrow follow-up with Dr. Hall next month. For now continue Revlimid 5 mg daily. Next followup with me in 3 months for exam and f/u myeloma labs. He will be seen by nephrology later this month due to his recurrent hyperkalemia. May return sooner if new issues arise. This is a moderate complexity visit over 35 minutes for symptom and lab review, address multiple comorbidities and recent hospitalizations, and followup plan with patient and his . (2) Chemotherapy-induced peripheral neuropathy 25% dose reduction Velcade prior to stem cell transplant due to reports of increased pain from neuropathy in fingers and feet. Worsening symptoms after transplant, referred back to palliative medicine for further management. Gabapentin titrated from 400mg/300mg/400mg to now 200/100/200 off over the past 3 months--will continue to followup with palliative medicine as needed. (3) Iron deficiency anemia Prior leg cramps with low iron saturation. Ferritin inappropriately normal due to inflammation from myeloma. Daily oral iron added due to symptomatic leg cramps and persistent anemia. He reports transfusion due to hemoglobin 7.7 at outside facility and this may be managed by his primary physician. (4) History of hemodialysis Initiated inpatient hemodialysis 02/2020, then transitioned to outpatient hemodialysis 3 times weekly Thursday//Thursday schedule. Chemotherapy given Thursday/. 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 He was actually able to stop dialysis within 2 months with the last session 04/24/2020 as noted above. Now 15 months after Melphalan 100mg/m2 + autologous PBSCT given his significant response to initial myeloma directed therapy. Continued f/u with nephrology for recent hyperkalemia. (5) Steroid-induced diabetes mellitus Qualifiers: Encounter type: subsequent encounter Qualified Code(s): E09.9 - Drug or chemical induced diabetes mellitus without complications; T38.0X5D - Adverse effect of glucocorticoids and synthetic analogues, subsequent encounter Patsy had an excellent response of light chains but was noted to have significant hyperglycemia 300-500 fasting blood sugars. He was referred to diabetes management clinic with addition of insulin therapy that has significantly improved control of his blood sugars. Patient also had remarked on some blurred vision that improved with control of blood sugars. Continue follow-up of blood sugars during admission for transplant in early July. 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 Resumed low dose metformin and titrating down insulin--directed by his primary physician. (6) B12 deficiency Patient was found to have B12 deficiency and was been placed on daily B12 prior to hospital discharge. We continued weekly IM B12 for 8 weeks with his myeloma regimen. Hemoglobin is improved on Aranesp and weekly B12, then changed to monthly maintenance therapy. He has not required further blood transfusions since 03/15/2020. Follow- up methylmalonic acid on 04/30/2020 was normal showing adequate replacement. He will continue monthly IM B12 and weekly vitamin D2 therapy 50,000 units orally for low 25 hydroxy vitamin D stores. He may take supplemental calcium once daily. (7) Encounter for chemotherapy management Started cycle 1 day 1 03/12/2020: Daratumumab 16 mg/kg IV weekly, bortezomib 1.3 mg/kg subcu twice weekly, dexamethasone 40 mg weekly. We added Revlimid 5 mg every other day of each 21-day cycle with cycle 2 due to excellent reduction of kappa light chains (recommended by Dr. Hall malignanthematology). 06/04/2020: 25% DR Bortezumab (100% all other meds) due to worsening neuropathy. Last dose of 4009 07/02/2020) and holding daratumumab per request of Dr. Hall. 07/25/2020: Melphalan 100mg/m2 + autologous PBSCT 10/18/2020: Started Revlimid 5 mg daily maintenance after bone marrow biopsy negative for MRD. Next follow-up MRD bone marrow at in 1 month - Chemo Plan Chemo Plan (Dose, Rate, Freq): 07/25/2020: Melphalan 100mg/m2 + autologous PBSCT-->10/2020 Revlimid 5mg daily maintenance after MRD bone marrow biopsy. Goal of Treatment: Control - Time with Patient Time Spent with Patient (Follow Up Visit): 35 minutes Coordination of Care & Counseling Time: Greater than 50% of time spent with patient was for coordination of care (as documented) and scux-[id number] counseling of patient and/or family. Dictated By: Brook Huddleston MD DD/ 1322 Signed By: <Electronically signed by MD Brook Huddleston> 10/04/21 [id number] [facility] Work Phone: [phone]) 315-180310-15-2021 Progress note Author Brook Huddleston [facility] May 31, 2021 5:42pm Note Date/Time May 30, 2021 2 :50pm [facility] [place] [id number] Hem/Onc Follow Up Note - OP Signed Patient: Patsy Mills MR#: [id number] : 1945 Acct:[id number] Age/Sex: 76 / M Type: REG RCR Copies to: MD Helen Jaramillo MD~ Subjective Date/Time of Service: Date of Service: 05/30/2021 Time of Service: 14:49 Chief Complaint: Patient is here for a 3 month follow up [facility] labs for review. Patient has questions about vaccines. No other concerns voiced. HPI: 05/30/2021: 3 month followup--still no new symptoms. We discussed coronavirus booster, then flu vaccine, then will have post transplant vaccines in June. He is off gabapentin and rash resolved. Tolerates Revlimid 5mg daily. Stable kappa/lambda ratio--no M-spike serum and urine testing. Quant immunoglobulins normal. I will f/u with myeloma labs in 3 months--CBC, CMP, SPEP, quant IGs, kappa/lambda light chains and beta2 microglobulin. He and his are in agreement with this plan. Low complexity visit. 02/27/2021: Here for 3-month follow-up, prior autologous stem cell transplant 07/25/2020. No limitations of daily activities--normal appetite, denies pain. Previously noted increased rash over bilateral antecubital areas, chest and back. He is titrating off gabapentin due to improving neuropathy and rash mildly better. Still on Revlimid 5mg daily. Uses benadryl prn for pruritus and rash. Will contact for post transplant vaccines. Stable kappa/lambda ratio--no M-spike serum and urine testing. Quant immunoglobulins normal. I will f/u with myeloma labs in 3 months--CBC, CMP, SPEP, quant IGs, kappa/lambda light chains and beta2 microglobulin. He and his are in agreement with this plan. 11/26/2020: Patsy is here for followup after D86 bone marrow biopsy at [facility] on 10/18/2020. No evidence of MRD--0.5% plasma cells andno clonal plasma cells suggestive of residual myeloma. Tolerating maintenance Revlimid 5mg daily well. No bone pain and normal renal function--Dr. Vincent hasreleased for annual nephrology followup. He is fully vaccinated for [id number] and I contacted Dr. Hall for coordination of post transplant vaccines. Stable neuropathy with gabapentin escalated to 400mg am, 300mg midday, 400mg pm. Continues followup with palliative medicine. He has phone f/u with Dr. Hall later this week. I will f/u with myeloma labs in 3 months--CBC, CMP, SPEP, quant IGs, kappa/lambda light chains and beta2 microglobulin. He and his are in agreement with this plan. 10/15/2020: Patsy is here with his for transfer of care after Melphalan 100mg/m2 autologous stem cell transplant D0 = 07/25/2021. He is now D+83 and oneweek ago, he saw Dr. Hall for survivorship visit. We reviewed his post transplant course and prior infections have now resolved. Blood counts have recovered and renal function at prior baseline. He has persistent neuropathy ongabapentin 200mg am, 100mg noon, 200mg pm. I'm setting him up for palliative consultation (previously followed by [facility]). He has a followup bone marrow biopsy scheduled with Dr. Hall in 3 days to document remission. I will discuss with him the plan after bone marrow biopsy--I briefly discussed Revlimidmaintenance with Mr. Mills and his . I will contact patient after bone marrow results to confirm plan with Dr. Hall and f/u with him in about 6 weeks with myeloma labs. 07/02/2020: Patsy has completed all of his pretransplant evaluation at [facility] including cardiology visit 11 9 which showed ejection fraction 60%. I have contacted Dr. Hall who noted that today will be his last day of Velcade and we will hold his daratumumab. He was to have a COVID-19 teston 07/11/2020 for planned stem cell collection 07/17 and transplant on 07/23. I clarified with the staff at [facility] this this may be performed at [facility] and forwarded to them. 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 His pain mainly in hips is about 3 out of 10 and controlled with Percocet. His next follow-up with me yeni be in about 4 months when he is post transplant although I am happy to see him sooner if new issues arise in his post transplant course that need to bemanaged closer to home. His most recent labs reveal improving hemoglobin (11.5), stable renal function (creatinine 1.35), normal calcium, and appropriateresponse of kappa light chain to now normal 18 with K/L ratio 2.02. 06/04/2020: Met with Dr. Hall on 05/24/2020 to discuss planning for high-dose chemotherapy peripheral blood stem cell transplant. He has now hemodialysis independent after daratumumab, dexamethasone, and Velcade with addition of Revlimid. Today he reports that he has had increased neuropathy symptoms in hisbilateral hands and feet with mild interference with activity (grade 2). We discussed a 25% dose reduction of Velcade on day 1, day 4, day 8, day 11 with current cycle of DVdR. He has some leg cramps at night, with normal magnesium, but low iron saturation noted--will start daily iron for symptoms. Otherwise heis tolerating therapy well and creatinine is now normal. He was given educationfor the transplant course and he is scheduled in late June after Thanksgiving to proceed with stem cell collection and transplant. I will communicate with Dr. Hall regarding end of therapy and in 1 month I will see him with follow-up myeloma studies. No other new concerns today. 05/07/2020: Patsy is here for 1 month follow-up. Outpatient hemodialysis was stopped after 04/24/2020 due to excellent response. He was evaluated by Dr. Small at [facility] on 04/26/2020. Angel and his note that Dr. Hall felt that he was physiologically about 8 years younger than his chronologic age and would likely be transplant eligible if pretransplant work-updeems this feasible. He recommended continuing current daratumumab and Velcade with low-dose Revlimid. He will reevaluate patient in 1 month and likely plan admission for stem cell collection, then high-dose chemotherapy/autologous stem cell transplantation in June or July. The patient's was concerned that she did not understand much of the pretransplant teaching and I explained to her and Don the pathophysiology of plasma cells, light chains, his improving trend of renal function, goal of 90% kappa/lambda ratio reduction prior to transplant. We also refilled Revlimid 5 mg every other day, weekly vitamin D, and I am giving him a trial of tramadol 50 mg every 12 hours as Tylenol is not effective for his pain and we are avoiding NSAIDs and additional aspirin. He otherwise has no toxicities of chemotherapy. He sees Dr. eHath for follow-up tomorrow and maintains insulin with stabilization of his blood sugars following with diabetes management clinic. I will see him in follow-up with myeloma labs in 1 month plan end of therapy prior to transplant. 04/09/2020: Here for one month f/u with his . He continues outpatient hemodialysis on Thursday//Saturdays. He notes fatigue, but generalized edema remarkably improved with no significant pain. I reviewed his M-spike, IgGand kappa light chains with K/L ratio that has remarkably improved (>90% reduction past month). [place] light chains decreased from 12,000 to 42. Only concern is significant hyperglycemia with dexamethasone. 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 I will coordinate evaluation by Dr. Quique Hall for HDC/autologous stem cell transplantevaluation and hold on adding Revlimid since significant response of light chains noted. I contacted Dr. Rahman of nephrology to consider reducing hemodialysis days to twice weekly. I will send myeloma labs in about 4 weeks, have him see Dr. Hall and f/u with me the following week to review plan and determine whether plan for HDC/stem cell transplant. 03/14/2020: Patient presents with his today after initiating both outpatienthemodialysis on Thursday//Saturdays and initial cycle of daratumumab, bortezomib, dexamethasone with potential addition of Revlimid after 1 month if less than optimal response. He received his first cycle of combination chemotherapy 03/12/2020. --Patient tolerated initial daratumumab infusion reasonably well with brief infusion reaction (dizziness and mild wheezing) that was treated with diphenhydramine, steroids, albuterol, and Demerol for rigors. He completed remaining infusion in an outpatient bed on the inpatient [place] Thursday and we anticipate further weekly daratumumab infusions as an outpatient. --Patient was seen at dialysis today and noted to have hemoglobin 6.8. He will receive 1 unit of packed red blood cells prior to Velcade today for scheduled tomorrow. His was unable to be present at the hospital at time of diagnosis and his initial bone marrow biopsy was performed on 03/08/2020. She requests evaluation with him today for extensive questions regarding his care. She reported her session and requested a copy of this progress note following our visit today. 1. She asked if all the tests at the hospital returned. We discussed the teststhat are used to follow-up myeloma including his elevated IgG, elevated free kappa light chains, and elevated M spike. We discussed in detail the pathophysiology of myeloma but she felt very anxious and overwhelmed and I reassured her that we will readdress this at further follow-up visits. 2. Patient had a metastatic bone survey showing no areas of lytic disease or pathologic fractures. We discussed CRAB criteria for multiple myeloma diagnosisand that he meets criteria of R renal and A anemia, but not elevated calcium or bone disease (C and B). She specifically asked is stage of multiple myeloma andwe noted that he still will require beta-2 glycoprotein (ISS) but is most consistent with stage III. We are still awaiting his chromosomal abnormalities by fluorescence in situ hybridization and will readdress at next follow-up visitwith his final bone marrow biopsy results (this study was only performed 03/08/2020). 3. She wanted to know if his testing showed cancer elsewhere. We discussed that since metastatic bone survey showed more lytic areas I do not feel that F-18 PET is high priority but this may be ordered at some point to assess for any asymptomatic bony metastatic disease. 4. He has recently had elevated blood sugars and does not have a history of diabetes, but we discussed that with weekly steroids he should likely have additional insulin on his steroid days. I offered that this could be managed byhis primary physician Dr. Heath and he could be referred for diabetes management clinic. 5. We reiterated multiple times that his schedule may be variable. He will typically have a long infusion on Mondays with daratumumab but initially he willpresent twice weekly for Velcade injection on Mondays and . This will change during the course of his therapy and he should refer to his calendar. 6. We discussed not taking additional vitamins unless approved by nephrology. I also discussed potentially adding Revlimid and we will address at future visits if this is needed based on his follow-up labs ordered 04/02/2020. His medications may be filled either locally or with his prescription plan, but manyof these will be ordered by nephrology. He is to continue vitamin D2 as recommended by nephrology. Blood pressure medications will be regulated by primary care and nephrology. 7. We discussed concerning side effects, most commonly hyperglycemia, insomnia,risk of thrombosis (recently was diagnosed with left superficial thrombosis of the left upper extremity and additional heparin is given with his dialysis), andneuropathy with Velcade. Patients do not tend to have significant nausea or possible appetite (effects of dexamethasone increase his appetite). I cannot recommend medical marijuana and would discuss this with his pre coder whetherthis would interfere with dialysis. We will also follow closely for cytopenias and reviewed infectious precautions. He has a son from [place] who plans to visit on Thursday and we discussed COVID-19 testing appropriate social isolation protocols. 8. We discussed whether he was eligible for transplant and this will be evaluated based on his response and overall health in likely 3 to 4 months afterinitiation of therapy. We did not discuss autologous stem cell transplant in detail. We did discuss that although this is not curative therapy, many patients are controlled with medication over longer periods of time (often 5 to 6 years) with appropriate therapy. It is an aggressive cancer due to its significant infectious risk and association with renal failure. 9. Exercise may be performed as tolerated but should be done in moderation and likely we should wait a few weeks for more significant exercise given his recentdialysis and initiation of chemotherapy. I did not specifically address his diet but he may address this with our [facility] nutrition team. He will also receivechemotherapy class with our nurses in the infusion center. PRELIMINARY HISTORY (from initial consult 03/08/2020): This is a 76-year-old male who was transferred from [place] emergency room by [facility] due to critical potassium 8.7 with elevated creatinine 11.2 and BUN 82 on 03/04/2020. We do not have any recent blood work for comparison but he hadnormal creatinine in 2011. He was urgently treated for his hyperkalemia and dialysis was arranged emergently by nephrology team. He has now stabilized on dialysis and had extensive work-up for etiology of his acute renal failure with severe anemia felt to be due to anemia of renal insufficiency. Iron studies returned normal with ferritin 160, but B12 low at 84 and folate low normal at 5.2. He is receiving appropriate B12 repletion. The patient reports that he has had a prolonged period of fatigue up to a year and has decreased appetite with subjective weight loss. He denies any significant bone pain other than pain in his right shoulder and has no prior falls or recurrent back pain. He had a shoulder film showing labral pathology of the joint but no fracture or dislocation. Myeloma labs were sent showing M spike 3.6 g/dL with serum immunofixation showing IgG kappa light chain specificity. Serum IgG markedly elevated at 5312 and free kappa light chain 12,649.9 with normal free lambda light chain 11.94 free kappa/lambda ratio 1063. Hepatitis A, B, and C serologies were all negative and COVID-19 screening was negative. LORE, c-ANCA, p-ANCA, anti-GBM, and antimyeloperoxidase were all negative. Clinically the patient has multiple myeloma and I explained that we needed to proceed with bone marrow aspiration and biopsy to provide baseline for diagnosis and to expedite chemotherapy with an aggressive regimen to reduce his light chains. I will review information with him at noon today around the time of his bone marrow biopsy for combinationdaratumumab 16 mg/kg IV weekly, bortezomib 1.3 mg/kg subcu twice weekly, dexamethasone 40 mg weekly, and Revlimid 25 mg p.o. daily days 1 through 14 of each 21-day cycle. Revlimid will be ordered through a special pharmacy. We will schedule his infusions as an outpatient early next week on his nondialysis days. Written literature for these medications will be provided and he may signinformed consent so that we may order this regimen as an outpatient. The patient's is not with him today but has been treated by me for breast cancer in the past and had multiple questions. We would like to arrange a time for her to be available to ask questions and be present for chemo consent, possibly around noon today. This will need to be coordinated with nursing staffdue to [facility]-19 visitor restriction policy. - Summary of Therapies Summary of Therapies: Cycle 1 day 1 03/12/2020: Daratumumab 16 mg/kg IV weekly, bortezomib 1.3 mg/kg subcu twice weekly, dexamethasone 40 mg weekly. 04/09/2020: Under direction of Dr. Hall, in early April we added Revlimid 5 mg every other day of each 21-day cycle with cycle 2 due to excellent response of kappa light chains. 04/26/2020: Malignant hematology eval for possible high-dose chemotherapy/autologous stem cell transplant. He was able to stop dialysis 04/24/2020. Given Velcade only (hold daratumumab) on 07/02/2020. 07/25/2020: Melphalan 100mg/m2 IV day 0 autologous stem cell transplant 07/25/2020at [facility]. 11/26/2020: Follow-up bone marrow aspiration and biopsy 10/18/2020 for MRD evaluation shows hypocellular marrow with 0.5% plasma cells, no clonal population by flow cytometry but 0.03% kappa light chain skewing. Started Revlimid 5 mg daily for maintenance therapy early October 2020. ROS Details: All systems reviewed & no additional complaints except as documented Subjective/ROS - Narrative: CONSTITUTIONAL: Improved fatigue since HD Melphalan/ASCT 07/2020, negative for fever or night sweats. Post-transplant infections as per HPI, now resolved. HEAD AND NECK: Stable vision since control of his diabetes mellitus. Negative for changes in hearing. Negative for mouth ulcers, nasal congestion and nasal drainage. PULMONARY: Negative for chest pain, cough and dyspnea. CARDIOVASCULAR: Negative for claudication and irregular heartbeat/palpitations. Resolved edema since diagnosis, now off dialysis. GASTROINTESTINAL: Negative for abdominal pain, constipation, diarrhea, nausea orvomiting. Improved appetite and 20 kg weight loss after starting dialysis, chemotherapy, and transplant for light chain nephropathy. 11/2020--returned to baseline weight pretransplant. GENITOURINARY: Negative for dysuria and hematuria. Improved urinary output, diagnosed in February 2020 with renal failure requiring dialysis--off dialysis 04/24/2020. Prior nephrolithiasis previously followed by Dr. Seals. ENDOCRINE: Negative for cold intolerance and heat intolerance. Improvement of prior hyperglycemia with home blood sugars in the 100-200s on supplemental insulin glargine. CENTRAL NERVOUS SYSTEM: Negative for gait disturbance and headache. No focal neurologic deficits or history of stroke. 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 PSYCHIATRIC: Negative for anxiety or depression. DERMATOLOGICAL: Positive for pruritus and rash as per HPI. Negative for suspicious skin lesions. MUSCULOSKELETAL: Resolved back pain and and thigh pain. Resolved leg cramps, improved neuropathy. No longer on ferrous sulfate post transplant. HEMATOLOGICAL: Negative for bleeding and easy bruising. Negative for history of transfusion (other than 1 unit packed red blood cells prior admission). Positive for left basilic vein thrombus on Doppler ultrasound 03/12/2020--no longer requires anticoagulation. ALLERGY: Negative for environmental allergies and food allergies. PMF - History Attestation statement: The following information was validated with the patient. Source: Old Records Reviewed - Medical History Medical History: Medical History (Last Reviewed 05/31/21 @ 17:08 by Brook Huddleston MD) Apnea Arthritis Diabetes mellitus, type 2 Hyperlipidemia Hypertension Kidney stones Skin cancer - Family History Family History: Family History (Last Reviewed 05/31/21 @ 17:08 by Brook Huddleston MD) Sister Myocardial infarct Mother Myocardial infarct Father Skin cancer - Social History Smoking Status: Former smoker Tobacco Type: cigarettes Substance Use Type: None Home Medications & Allergies Allergies No Known Allergies Allergy (Verified 02/27/21 14:44) Home Medications famotidine 20 mg tablet 20 mg PO DAILY #30 tab 03/10/20 [Rx Confirmed 05/30/21] insulin glargine 100 unit/mL (3 mL) subcutaneous pen (Lantus Solostar U-100 Insulin) 12 unit SUBCUT DAILY 04/27/20 [History Confirmed 05/30/21] insulin lispro 100 unit/mL subcutaneous pen (Humalog KwikPen (U-100) Insulin) 6 - 16 unit SUBCUT DIRECTED 04/27/20 [History Confirmed 05/30/21] hydralazine 50 mg tablet 25 mg PO BID 07/02/20 [History Confirmed 05/30/21] atorvastatin 20 mg tablet 20 mg PO DAILY 10/15/20 [History Confirmed 05/30/21] cholecalciferol (vitamin D3) 50 mcg (2,000 unit) capsule (Vitamin D3) 50 mcg PO DAILY 10/15/20 [History Confirmed 05/30/21] furosemide 40 mg tablet 20 mg PO DAILY 10/15/20 [History Confirmed 05/30/21] loperamide 2 mg capsule 2 mg PO QID PRN 10/15/20 [History Confirmed 05/30/21] sulfamethoxazole 800 mg-trimethoprim 160 mg tablet (Bactrim DS) 1 tab PO BID 10/15/20 [History Confirmed 05/30/21] tramadol 50 mg tablet 50 mg PO DAILY PRN 10/15/20 [History Confirmed 05/30/21] aspirin 81 mg tablet,delayed release 81 mg PO DAILY 11/26/20 [History Confirmed 05/30/21] metformin 500 mg tablet 1,000 mg PO DAILY 11/26/20 [History Confirmed 05/30/21] acyclovir 400 mg tablet 400 mg PO BID 60 Days #120 tab 12/19/20 [Rx Confirmed 05/30/21] potassium chloride 20 mEq tablet,extended release 20 meq PO DAILY #90 tab 02/26/21 [Rx Confirmed 05/30/21] lenalidomide 5 mg capsule (Revlimid) 5 mg PO DAILY 28 Days #28 cap 05/14/21 [Rx Confirmed 05/30/21] Objective - Height/Weight Height/Weight: Height 5 ft 10 in Weight 93.44 kg BSA for Today's Weight 2.10 - Vital Signs Vital Signs: 05/30/21 14:41 Temperature 98.2 F Pulse Rate [Monitor] 75 Respiratory Rate 20 Blood Pressure [Left Arm] 154/80 H 02 Sat by Pulse Oximetry 99 - Pain Right Hip Pain Intensity: 5 Generalized Pain Intensity: 1 Left Upper Arm Pain Intensity: 4 - Emotional Needs Assessment Emotional Needs Assessment: Emotional Needs Identified? No Physical Exam Narrative: CONSTITUTIONAL: The patient is in no acute distress. No fatigue. HEAD / FACE: Normocephalic. EYES: Pupils are equal and reactive to light. Conjunctivae and lids are benign in appearance. Ocular movement intact. EARS: Hearing grossly intact. NOSE / MOUTH / THROAT: Nose, mouth, tongue and oropharynx are benign in appearance. No signs of inflammation. NECK / THYROID: Neck is supple. Thyroid is symmetrical, without thyromegaly, masses or palpable nodules. LYMPHATIC: No palpable cervical, supraclavicular, axillary, or inguinal adenopathy. RESPIRATORY: Normal to inspection. Lungs clear to auscultation and percussion. No wheezing, rales, rhonchi or rubs. Normal effort. CARDIOVASCULAR: Regular rate and rhythm. No murmurs, gallops, or rubs. VASCULAR: Carotid, radial, femoral and pedal pulses present bilaterally. No bruits. ABDOMEN: Bowel sounds normoactive. Soft, nontender and non-distended. No hepatosplenomegaly. No masses. GENITOURINARY: No CVA tenderness. No suprapubic fullness or tenderness. No groinadenopathy. No evidence of hernias. INTEGUMENTARY: The skin is unremarkable. Resolved antecubital/chest rashes. No suspicious lesions BACK / SPINE: The back is nontender. No step-off deformity. No CVA tenderness. MUSCULOSKELETAL: Normal musculature, no joint deformities or abnormalities, normal range of motion for all four extremities. EXTREMITIES: No longer has bilateral lower extremity edema; no cyanosis or clubbing. No Vitor sign. NEUROLOGICAL: Alert and oriented. Cranial nerves intact. No gross motor or sensory deficits. PSYCHIATRIC: No anxiety or evidence of depression. - ECOG Performance Status ECOG Score: 1 Results - Labs Labs: Diagram of Most Recent CBC and CMP 05/24/21 14:07 05/24/21 14:07 Labs - Last 7 Days 05/24/21 14:07: Ur Random Albumin 33.0, U Random Total Protein <4.0, U Kclqj-3-Tcbmjiuo (%) 3.1, U Random l-6-Zswohhbk % 13.7, U Random b-Globulin % 26.4, U Random Gamma Glob % 23.7, U Random M-Anselmo (%) Not observed, Urine Random PEP Note , Urine Immunofixation 05/24/21 14:07: Serum Total Protein 6.4, Albumin (Send Out) 3.3, Globulin (PEP) 3.1, Albumin/Globulin (PEP) 1.1, Koxmg-5-Cdzxpwvky 0.3, Nmxhg-5-Oziawizbe 0.9, Beta Globulins 0.9, Tpmq-1-Cmmfhorozisaj 2.8 H, Gamma Globulins 1.0, M-Anselmo Comment:, PEP Note , IgG 944, IgA 137, IgM 29, Serum Immunofixation Comment:, Free [place] LC, Quant 32.7 H, Free Lambda LC, Quant 21.3, Free [place]/Lambda Ratio1.54 05/24/21 14:07: PHA Creatinine Clear 78.43, Sodium 136, Potassium 4.1, Chloride 105, Carbon Dioxide 22.6, BUN 10, Creatinine 0.92, Est GFR ( Amer) > 60, Est GFR (Non-Af Amer) > 60, Glucose 156 H, Calcium 9.1, Total Bilirubin 0.7, AST23, ALT 20, Alkaline Phosphatase 99 H, Total Protein 6.4, Albumin 3.9, Globulin 2.5, Albumin/Globulin Ratio 1.6 05/24/21 14:07: Corrected WBC 3.7 L, Uncorrected WBC Count 3.7 L, RBC 3.52 L, Hgb 12.6 L, Hct 36.0 L, MCV 102.2 H, MCH 35.7 H, MCHC 34.9, RDW 16.9 H, Plt Count 161, MPV 7.2, Neut % (Auto) 43.8, Lymph % (Auto) 25.5, [place] % (Auto) 9.0, Eos % (Auto) 20.7, Baso % (Auto) 1.0, Neut # (Auto) 1.6 L, Lymph # (Auto) 0.9 L,[place] # (Auto) 0.3, Eos # (Auto) 0.8 H, Baso # (Auto) 0.0, Nucleated RBC % (auto)0.1 - Impressions No imaging for review. 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 He had marked elevation in IgG kappa on initial laboratory work-up for renal failure in February 2020. He has remained hemodynamically stable and I discussed in detail with the patient the pathophysiology of multiple myeloma and associated injury to kidneys, persistentanemia, bone disease, and potential hypercalcemia (we do not see hypercalcemia in this patient). He consented to inpatient bone marrow biopsy 03/08/2020 which was diagnostic for multiple myeloma--70% plasma cells without amyloid depositionidentified in small marrow specimen. Normal baseline skeletal survey. I reviewed pathophysiology of myeloma, results of bone marrow biopsy, skeletal survey, and myeloma labs with the patient and his . Patsy consented to begin first cycle Daratumumab, Velcade, and dexamethasone on03/12/2020--other than infusion reaction from first Daratumumab, improved with symptomatic therapy. I reviewed his case with Dr. Quique Hall of Malignant Hematology--added Revlimid 5mg qod following significant reduction of light chains in early April 2020. 05/07/2020: As per HPI, Angel and his met with Dr. Hall 04/26/2020 with preparation for likely high-dose chemotherapy/autologous peripheral stem cell transplant if he meets criteria based on cardiopulmonary work-up. He has had greater than 90%. The patient was able to discontinue hemodialysis on 04/24/2020 and has not had any recurrence of edema with now improved renal function, creatinine clearance now 53. --I will continue current therapy with further evaluation by Dr. Hall in 1 month for planning his HDC/autologous stem cell transplant. We will send repeatmyeloma labs (SPEP, IgG, kappa/lambda light chains) in 4 weeks with f/u visit with me the following week to review results as well as evaluation with Dr. Hall for possible stem cell transplant. 06/04/2020: Tolerating chemotherapy well other than increasing neuropathy of hands and feet. Dose reduced Velcade by 25% next cycle. Added daily ferrous sulfate. --He was referred to diabetes management clinic and sees Dr. Heath with regularfollow-up by Dr. Rahman since he is off dialysis. Diabetes control improved. 07/02/2020: Last dose of Velcade today. Neuropathy is stable and pain is well controlled. He will have COVID-19 test on 07/11/2020 for planned admission for stem cell collection on 07/17/2020 then high-dose melphalan followed by peripheral blood stem cell transplant day 0 scheduled 07/23/2020. His next follow-up with me will be in about 4 months after he is completed day 100 transplant follow-up. He may return sooner as needed. 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 Melphalan 100mg/m2 + ASCT Day 0 07/25/2020. 11/26/2020: Followup of [facility] end of therapy bone marrow biopsy 10/18/2020--no minimal residual disease. Started Revlimid maintenance 5mg daily in early October2020. 02/27/2021: No new symptoms other than rash. Slow improvement of neuropathy--titrating off gabapentin with palliative medicine. Benadryl for rash. Continue Revlimid 5mg daily. He will be due for first post transplant vaccines soone--will check schedule with . 05/30/2021: Rash and neuropathy improved. Tolerating Revlimid well. Discussedcoronavirus booster and influenza vaccines. Post transplant vaccines due in 07/2021. No M-spike and normal kappa/lambda ratio. Next followup with ga in 3 months for exam and f/u myeloma labs. Extended nephrology followup to annual. May return sooner if new issues arise. F/u skeletal survey 1 yr s/p transplant--ordered prior to next f/u in 3 months. This is a low complexity visit over 20 minutes for symptom and lab review, and followup plan with patient and his . (2) Chemotherapy-induced peripheral neuropathy 25% dose reduction Velcade prior to stem cell transplant due to reports of increased pain from neuropathy in fingers and feet. Worsening symptoms after transplant, referred back to palliative medicine for further management. Gabapentin titrated from 400mg/300mg/400mg to now 200/100/200 off over the past 3 months--will continue to followup with palliative medicine as needed. (3) Iron deficiency anemia Prior leg cramps with low iron saturation. Ferritin inappropriately normal due to inflammation from myeloma. Daily oral iron added due to symptomatic leg cramps and persistent anemia. Recheck iron studies were not ordered--may send with 3 month followup. No longer taking oral iron--mild normocytic anemia post transplant continues to improve. (4) History of hemodialysis Initiated inpatient hemodialysis 02/2020, then transitioned to outpatient hemodialysis 3 times weekly Thursday//Thursday schedule. Chemotherapy given Thursday/. 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 He was actually able to stop dialysis within 2 months with thelast session 04/24/2020 as noted above. Now > 10 months after Melphalan 100mg/m2 + autologous PBSCT given his significant response to initial myeloma directed therapy. Continued f/u with nephrology now annual post transplant due to normal renal function. (5) Steroid-induced diabetes mellitus Qualifiers: Encounter type: subsequent encounter Qualified Code(s): E09.9 - Drug or chemical induced diabetes mellitus without complications; T38.0X5D - Adverse effect of glucocorticoids and synthetic analogues, subsequent encounter Patsy had an excellent response of light chains but was noted to have significant hyperglycemia 300-500 fasting blood sugars. He was referred to diabetes management clinic with addition of insulin therapy that has significantly improved control of his blood sugars. Patient also had remarked on some blurred vision that improved with control of blood sugars. Continue follow-up of blood sugars during admission for transplant in early July. 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 Resumed low dose metformin and titrating down insulin--directed by his primary physician. (6) B12 deficiency Patient was found to have B12 deficiency and was been placed on daily B12 prior to hospital discharge. We continued weekly IM B12 for 8 weeks with his myeloma regimen. Hemoglobin is improved on Aranesp and weekly B12, then changed to monthly maintenance therapy. He has not required further blood transfusions since 03/15/2020. Follow- up methylmalonic acid on 04/30/2020 was normal showing adequate replacement. He will continue monthly IM B12 and weekly vitamin D2 therapy 50,000 units orally for low 25 hydroxy vitamin D stores. He may take supplemental calcium once daily. (7) Encounter for chemotherapy management Started cycle 1 day 1 03/12/2020: Daratumumab 16 mg/kg IV weekly, bortezomib 1.3 mg/kg subcu twice weekly, dexamethasone 40 mg weekly. We added Revlimid 5 mg every other day of each 21-day cycle with cycle 2 due to excellent reduction of kappa light chains (recommended by Dr. Hall malignanthematology). 06/04/2020: 25% Bortezumab (100% all other meds) due to worsening neuropathy. Last dose of 4009 07/02/2020) and holding daratumumab per request of Dr. Hall. 07/25/2020: Melphalan 100mg/m2 + autologous PBSCT 10/18/2020: Started Revlimid maintenance after bone marrow biopsy negative for MRD. - Chemo Plan Chemo Plan (Dose, Rate, Freq): 07/25/2020: Melphalan 100mg/m2 + autologous PBSCT-->10/2020 Revlimid 5mg daily maintenance after bone marrow biopsy. Goal of Treatment: Control - Time with Patient Time Spent with Patient (Follow Up Visit): Less than 20 minutes Coordination of Care & Counseling Time: Greater than 50% of time spent with patient was for coordination of care (as documented) and [id number] counseling of patient and/or family. Dictated By: Brook Huddleston MD DD/ [id number] Signed By: <Electronically signed by MD Brook Huddleston> 05/31/21 1742 [facility] Work Phone: [phone]) 578-957010-15-2021 Progress note Author Brook Huddleston [facility] May 31, 2021 5:42pm Note Date/Time May 30, 2021 2 :50pm [facility] [place] [address] Hem/Onc Follow Up Note - OP Signed Patient: Patsy Mills MR#: [id number] : 1945 Acct:[id number] Age/Sex: 76 / M Type: REG RCR Copies to: MD Helen Jaramillo MD~ Subjective Date/Time of Service: Date of Service: 05/30/2021 Time of Service: 14:49 Chief Complaint: Patient is here for a 3 month follow up [facility] labs for review. Patient has questions about vaccines. No other concerns voiced. HPI: 05/30/2021: 3 month followup--still no new symptoms. We discussed coronavirus booster, then flu vaccine, then will have post transplant vaccines in June. He is off gabapentin and rash resolved. Tolerates Revlimid 5mg daily. Stable kappa/lambda ratio--no M-spike serum and urine testing. Quant immunoglobulins normal. I will f/u with myeloma labs in 3 months--CBC, CMP, SPEP, quant IGs, kappa/lambda light chains and beta2 microglobulin. He and his are in agreement with this plan. Low complexity visit. 02/27/2021: Here for 3-month follow-up, prior autologous stem cell transplant 07/25/2020. No limitations of daily activities--normal appetite, denies pain. Previously noted increased rash over bilateral antecubital areas, chest and back. He is titrating off gabapentin due to improving neuropathy and rash mildly better. Still on Revlimid 5mg daily. Uses benadryl prn for pruritus and rash. Will contact for post transplant vaccines. Stable kappa/lambda ratio--no M-spike serum and urine testing. Quant immunoglobulins normal. I will f/u with myeloma labs in 3 months--CBC, CMP, SPEP, quant IGs, kappa/lambda light chains and beta2 microglobulin. He and his are in agreement with this plan. 11/26/2020: Patsy is here for followup after D86 bone marrow biopsy at [facility] on 10/18/2020. No evidence of MRD--0.5% plasma cells andno clonal plasma cells suggestive of residual myeloma. Tolerating maintenance Revlimid 5mg daily well. No bone pain and normal renal function--Dr. Vincent hasreleased for annual nephrology followup. He is fully vaccinated for [id number] and I contacted Dr. Hall for coordination of post transplant vaccines. Stable neuropathy with gabapentin escalated to 400mg am, 300mg midday, 400mg pm. Continues followup with palliative medicine. He has phone f/u with Dr. Hall later this week. I will f/u with myeloma labs in 3 months--CBC, CMP, SPEP, quant IGs, kappa/lambda light chains and beta2 microglobulin. He and his are in agreement with this plan. 10/15/2020: Patsy is here with his for transfer of care after Melphalan 100mg/m2 autologous stem cell transplant D0 = 07/25/2021. He is now D+83 and oneweek ago, he saw Dr. Hall for survivorship visit. We reviewed his post transplant course and prior infections have now resolved. Blood counts have recovered and renal function at prior baseline. He has persistent neuropathy ongabapentin 200mg am, 100mg noon, 200mg pm. I'm setting him up for palliative consultation (previously followed by [facility]). He has a followup bone marrow biopsy scheduled with Dr. Hall in 3 days to document remission. I will discuss with him the plan after bone marrow biopsy--I briefly discussed Revlimidmaintenance with Mr. Mills and his . I will contact patient after bone marrow results to confirm plan with Dr. Hall and f/u with him in about 6 weeks with myeloma labs. 07/02/2020: Patsy has completed all of his pretransplant evaluation at [facility] including cardiology visit 11 9 which showed ejection fraction 60%. I have contacted Dr. Hall who noted that today will be his last day of Velcade and we will hold his daratumumab. He was to have a COVID-19 teston 07/11/2020 for planned stem cell collection 07/17 and transplant on 07/23. I clarified with the staff at [facility] this this may be performed at [facility] and forwarded to them. 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 His pain mainly in hips is about 3 out of 10 and controlled with Percocet. His next follow-up with me jaime be in about 4 months when he is post transplant although I am happy to see him sooner if new issues arise in his post transplant course that need to bemanaged closer to home. His most recent labs reveal improving hemoglobin (11.5), stable renal function (creatinine 1.35), normal calcium, and appropriateresponse of kappa light chain to now normal 18 with K/L ratio 2.02. 06/04/2020: Met with Dr. Hall on 05/24/2020 to discuss planning for high-dose chemotherapy peripheral blood stem cell transplant. He has now hemodialysis independent after daratumumab, dexamethasone, and Velcade with addition of Revlimid. Today he reports that he has had increased neuropathy symptoms in hisbilateral hands and feet with mild interference with activity (grade 2). We discussed a 25% dose reduction of Velcade on day 1, day 4, day 8, day 11 with current cycle of DVdR. He has some leg cramps at night, with normal magnesium, but low iron saturation noted--will start daily iron for symptoms. Otherwise heis tolerating therapy well and creatinine is now normal. He was given educationfor the transplant course and he is scheduled in late June after Thanksgiving to proceed with stem cell collection and transplant. I will communicate with Dr. Hall regarding end of therapy and in 1 month I will see him with follow-up myeloma studies. No other new concerns today. 05/07/2020: Patsy is here for 1 month follow-up. Outpatient hemodialysis was stopped after 04/24/2020 due to excellent response. He was evaluated by Dr. Small at [facility] on 04/26/2020. Angel and his note that Dr. Hall felt that he was physiologically about 8 years younger than his chronologic age and would likely be transplant eligible if pretransplant work-updeems this feasible. He recommended continuing current daratumumab and Velcade with low-dose Revlimid. He will reevaluate patient in 1 month and likely plan admission for stem cell collection, then high-dose chemotherapy/autologous stem cell transplantation in June or July. The patient's was concerned that she did not understand much of the pretransplant teaching and I explained to her and Don the pathophysiology of plasma cells, light chains, his improving trend of renal function, goal of 90% kappa/lambda ratio reduction prior to transplant. We also refilled Revlimid 5 mg every other day, weekly vitamin D, and I am giving him a trial of tramadol 50 mg every 12 hours as Tylenol is not effective for his pain and we are avoiding NSAIDs and additional aspirin. He otherwise has no toxicities of chemotherapy. He sees Dr. Heath for follow-up tomorrow and maintains insulin with stabilization of his blood sugars following with diabetes management clinic. I will see him in follow-up with myeloma labs in 1 month plan end of therapy prior to transplant. 04/09/2020: Here for one month f/u with his . He continues outpatient hemodialysis on Thursday//Saturdays. He notes fatigue, but generalized edema remarkably improved with no significant pain. I reviewed his M-spike, IgGand kappa light chains with K/L ratio that has remarkably improved (>90% reduction past month). [place] light chains decreased from 12,000 to 42. Only concern is significant hyperglycemia with dexamethasone. 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 I will coordinate evaluation by Dr. Quique Hall for HDC/autologous stem cell transplantevaluation and hold on adding Revlimid since significant response of light chains noted. I contacted Dr. Rahman of nephrology to consider reducing hemodialysis days to twice weekly. I will send myeloma labs in about 4 weeks, have him see Dr. Hall and f/u with me the following week to review plan and determine whether plan for HDC/stem cell transplant. 03/14/2020: Patient presents with his today after initiating both outpatienthemodialysis on Thursday//Saturdays and initial cycle of daratumumab, bortezomib, dexamethasone with potential addition of Revlimid after 1 month if less than optimal response. He received his first cycle of combination chemotherapy 03/12/2020. --Patient tolerated initial daratumumab infusion reasonably well with brief infusion reaction (dizziness and mild wheezing) that was treated with diphenhydramine, steroids, albuterol, and Demerol for rigors. He completed remaining infusion in an outpatient bed on the inpatient [facility] Thursday and we anticipate further weekly daratumumab infusions as an outpatient. --Patient was seen at dialysis today and noted to have hemoglobin 6.8. He will receive 1 unit of packed red blood cells prior to Velcade today for scheduled tomorrow. His was unable to be present at the hospital at time of diagnosis and his initial bone marrow biopsy was performed on 03/08/2020. She requests evaluation with him today for extensive questions regarding his care. She reported her session and requested a copy of this progress note following our visit today. 1. She asked if all the tests at the hospital returned. We discussed the teststhat are used to follow-up myeloma including his elevated IgG, elevated free kappa light chains, and elevated M spike. We discussed in detail the pathophysiology of myeloma but she felt very anxious and overwhelmed and I reassured her that we will readdress this at further follow-up visits. 2. Patient had a metastatic bone survey showing no areas of lytic disease or pathologic fractures. We discussed CRAB criteria for multiple myeloma diagnosisand that he meets criteria of R renal and A anemia, but not elevated calcium or bone disease (C and B). She specifically asked is stage of multiple myeloma andwe noted that he still will require beta-2 glycoprotein (ISS) but is most consistent with stage III. We are still awaiting his chromosomal abnormalities by fluorescence in situ hybridization and will readdress at next follow-up visitwith his final bone marrow biopsy results (this study was only performed 03/08/2020). 3. She wanted to know if his testing showed cancer elsewhere. We discussed that since metastatic bone survey showed more lytic areas I do not feel that F-18 PET is high priority but this may be ordered at some point to assess for any asymptomatic bony metastatic disease. 4. He has recently had elevated blood sugars and does not have a history of diabetes, but we discussed that with weekly steroids he should likely have additional insulin on his steroid days. I offered that this could be managed byhis primary physician Dr. Heath and he could be referred for diabetes management clinic. 5. We reiterated multiple times that his schedule may be variable. He will typically have a long infusion on Mondays with daratumumab but initially he willpresent twice weekly for Velcade injection on Mondays and . This will change during the course of his therapy and he should refer to his calendar. 6. We discussed not taking additional vitamins unless approved by nephrology. I also discussed potentially adding Revlimid and we will address at future visits if this is needed based on his follow-up labs ordered 04/02/2020. His medications may be filled either locally or with his prescription plan, but manyof these will be ordered by nephrology. He is to continue vitamin D2 as recommended by nephrology. Blood pressure medications will be regulated by primary care and nephrology. 7. We discussed concerning side effects, most commonly hyperglycemia, insomnia,risk of thrombosis (recently was diagnosed with left superficial thrombosis of the left upper extremity and additional heparin is given with his dialysis), andneuropathy with Velcade. Patients do not tend to have significant nausea or possible appetite (effects of dexamethasone increase his appetite). I cannot recommend medical marijuana and would discuss this with his pre coder whetherthis would interfere with dialysis. We will also follow closely for cytopenias and reviewed infectious precautions. He has a son from [place] who plans to visit on Thursday and we discussed COVID-19 testing appropriate social isolation protocols. 8. We discussed whether he was eligible for transplant and this will be evaluated based on his response and overall health in likely 3 to 4 months afterinitiation of therapy. We did not discuss autologous stem cell transplant in detail. We did discuss that although this is not curative therapy, many patients are controlled with medication over longer periods of time (often 5 to 6 years) with appropriate therapy. It is an aggressive cancer due to its significant infectious risk and association with renal failure. 9. Exercise may be performed as tolerated but should be done in moderation and likely we should wait a few weeks for more significant exercise given his recentdialysis and initiation of chemotherapy. I did not specifically address his diet but he may address this with our [facility] nutrition team. He will also receivechemotherapy class with our nurses in the infusion center. PRELIMINARY HISTORY (from initial consult 03/08/2020): This is a 76-year-old male who was transferred from [place] emergency room by [facility] due to critical potassium 8.7 with elevated creatinine 11.2 and BUN 82 on 03/04/2020. We do not have any recent blood work for comparison but he hadnormal creatinine in 2011. He was urgently treated for his hyperkalemia and dialysis was arranged emergently by nephrology team. He has now stabilized on dialysis and had extensive work-up for etiology of his acute renal failure with severe anemia felt to be due to anemia of renal insufficiency. Iron studies returned normal with ferritin 160, but B12 low at 84 and folate low normal at 5.2. He is receiving appropriate B12 repletion. The patient reports that he has had a prolonged period of fatigue up to a year and has decreased appetite with subjective weight loss. He denies any significant bone pain other than pain in his right shoulder and has no prior falls or recurrent back pain. He had a shoulder film showing labral pathology of the joint but no fracture or dislocation. Myeloma labs were sent showing M spike 3.6 g/dL with serum immunofixation showing IgG kappa light chain specificity. Serum IgG markedly elevated at 5312 and free kappa light chain 12,649.9 with normal free lambda light chain 11.94 free kappa/lambda ratio 1063. Hepatitis A, B, and C serologies were all negative and COVID-19 screening was negative. LORE, c-ANCA, p-ANCA, anti-GBM, and antimyeloperoxidase were all negative. Clinically the patient has multiple myeloma and I explained that we needed to proceed with bone marrow aspiration and biopsy to provide baseline for diagnosis and to expedite chemotherapy with an aggressive regimen to reduce his light chains. I will review information with him at noon today around the time of his bone marrow biopsy for combinationdaratumumab 16 mg/kg IV weekly, bortezomib 1.3 mg/kg subcu twice weekly, dexamethasone 40 mg weekly, and Revlimid 25 mg p.o. daily days 1 through 14 of each 21-day cycle. Revlimid will be ordered through a special pharmacy. We will schedule his infusions as an outpatient early next week on his nondialysis days. Written literature for these medications will be provided and he may signinformed consent so that we may order this regimen as an outpatient. The patient's is not with him today but has been treated by me for breast cancer in the past and had multiple questions. We would like to arrange a time for her to be available to ask questions and be present for chemo consent, possibly around noon today. This will need to be coordinated with nursing staffdue to [facility]- visitor restriction policy. - Summary of Therapies Summary of Therapies: Cycle 1 day 1 03/12/2020: Daratumumab 16 mg/kg IV weekly, bortezomib 1.3 mg/kg subcu twice weekly, dexamethasone 40 mg weekly. 04/09/2020: Under direction of Dr. Hall, in early April we added Revlimid 5 mg every other day of each 21-day cycle with cycle 2 due to excellent response of kappa light chains. 04/26/2020: Malignant hematology eval for possible high-dose chemotherapy/autologous stem cell transplant. He was able to stop dialysis 04/24/2020. Given Velcade only (hold daratumumab) on 07/02/2020. 07/25/2020: Melphalan 100mg/m2 IV day 0 autologous stem cell transplant 07/25/2020at [facility]. 11/26/2020: Follow-up bone marrow aspiration and biopsy 10/18/2020 for MRD evaluation shows hypocellular marrow with 0.5% plasma cells, no clonal population by flow cytometry but 0.03% kappa light chain skewing. Started Revlimid 5 mg daily for maintenance therapy early October 2020. ROS Details: All systems reviewed & no additional complaints except as documented Subjective/ROS - Narrative: CONSTITUTIONAL: Improved fatigue since HD Melphalan/ASCT 07/2020, negative for fever or night sweats. Post-transplant infections as per HPI, now resolved. HEAD AND NECK: Stable vision since control of his diabetes mellitus. Negative for changes in hearing. Negative for mouth ulcers, nasal congestion and nasal drainage. PULMONARY: Negative for chest pain, cough and dyspnea. CARDIOVASCULAR: Negative for claudication and irregular heartbeat/palpitations. Resolved edema since diagnosis, now off dialysis. GASTROINTESTINAL: Negative for abdominal pain, constipation, diarrhea, nausea orvomiting. Improved appetite and 20 kg weight loss after starting dialysis, chemotherapy, and transplant for light chain nephropathy. 11/2020--returned to baseline weight pretransplant. GENITOURINARY: Negative for dysuria and hematuria. Improved urinary output, diagnosed in February 2020 with renal failure requiring dialysis--off dialysis 04/24/2020. Prior nephrolithiasis previously followed by Dr. Seals. ENDOCRINE: Negative for cold intolerance and heat intolerance. Improvement of prior hyperglycemia with home blood sugars in the 100-200s on supplemental insulin glargine. CENTRAL NERVOUS SYSTEM: Negative for gait disturbance and headache. No focal neurologic deficits or history of stroke. 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 PSYCHIATRIC: Negative for anxiety or depression. DERMATOLOGICAL: Positive for pruritus and rash as per HPI. Negative for suspicious skin lesions. MUSCULOSKELETAL: Resolved back pain and and thigh pain. Resolved leg cramps, improved neuropathy. No longer on ferrous sulfate post transplant. HEMATOLOGICAL: Negative for bleeding and easy bruising. Negative for history of transfusion (other than 1 unit packed red blood cells prior admission). Positive for left basilic vein thrombus on Doppler ultrasound 03/12/2020--no longer requires anticoagulation. ALLERGY: Negative for environmental allergies and food allergies. [facility] - History Attestation statement: The following information was validated with the patient. Source: Old Records Reviewed - Medical History Medical History: Medical History (Last Reviewed 05/31/21 @ 17:08 by Brook Huddleston MD) Apnea Arthritis Diabetes mellitus, type 2 Hyperlipidemia Hypertension Kidney stones Skin cancer - Family History Family History: Family History (Last Reviewed 05/31/21 @ 17:08 by Brook Huddleston MD) Sister Myocardial infarct Mother Myocardial infarct Father Skin cancer - Social History Smoking Status: Former smoker Tobacco Type: cigarettes Substance Use Type: None Home Medications & Allergies Allergies No Known Allergies Allergy (Verified 02/27/21 14:44) Home Medications famotidine 20 mg tablet 20 mg PO DAILY #30 tab 03/10/20 [Rx Confirmed 05/30/21] insulin glargine 100 unit/mL (3 mL) subcutaneous pen (Lantus Solostar U-100 Insulin) 12 unit SUBCUT DAILY 04/27/20 [History Confirmed 05/30/21] insulin lispro 100 unit/mL subcutaneous pen (Humalog KwikPen (U-100) Insulin) 6 - 16 unit SUBCUT DIRECTED 04/27/20 [History Confirmed 05/30/21] hydralazine 50 mg tablet 25 mg PO BID 07/02/20 [History Confirmed 05/30/21] atorvastatin 20 mg tablet 20 mg PO DAILY 10/15/20 [History Confirmed 05/30/21] cholecalciferol (vitamin D3) 50 mcg (2,000 unit) capsule (Vitamin D3) 50 mcg PO DAILY 10/15/20 [History Confirmed 05/30/21] furosemide 40 mg tablet 20 mg PO DAILY 10/15/20 [History Confirmed 05/30/21] loperamide 2 mg capsule 2 mg PO QID PRN 10/15/20 [History Confirmed 05/30/21] sulfamethoxazole 800 mg-trimethoprim 160 mg tablet (Bactrim DS) 1 tab PO BID 10/15/20 [History Confirmed 05/30/21] tramadol 50 mg tablet 50 mg PO DAILY PRN 10/15/20 [History Confirmed 05/30/21] aspirin 81 mg tablet,delayed release 81 mg PO DAILY 11/26/20 [History Confirmed 05/30/21] metformin 500 mg tablet 1,000 mg PO DAILY 11/26/20 [History Confirmed 05/30/21] acyclovir 400 mg tablet 400 mg PO BID 60 Days #120 tab 12/19/20 [Rx Confirmed 05/30/21] potassium chloride 20 mEq tablet,extended release 20 meq PO DAILY #90 tab 02/26/21 [Rx Confirmed 05/30/21] lenalidomide 5 mg capsule (Revlimid) 5 mg PO DAILY 28 Days #28 cap 05/14/21 [Rx Confirmed 05/30/21] Objective - Height/Weight Height/Weight: Height 5 ft 10 in Weight 93.44 kg BSA for Today's Weight 2.10 - Vital Signs Vital Signs: 05/30/21 14:41 Temperature 98.2 F Pulse Rate [Monitor] 75 Respiratory Rate 20 Blood Pressure [Left Arm] 154/80 H 02 Sat by Pulse Oximetry 99 - Pain Right Hip Pain Intensity: 5 Generalized Pain Intensity: 1 Left Upper Arm Pain Intensity: 4 - Emotional Needs Assessment Emotional Needs Assessment: Emotional Needs Identified? No Physical Exam Narrative: CONSTITUTIONAL: The patient is in no acute distress. No fatigue. HEAD / FACE: Normocephalic. EYES: Pupils are equal and reactive to light. Conjunctivae and lids are benign in appearance. Ocular movement intact. EARS: Hearing grossly intact. NOSE / MOUTH / THROAT: Nose, mouth, tongue and oropharynx are benign in appearance. No signs of inflammation. NECK / THYROID: Neck is supple. Thyroid is symmetrical, without thyromegaly, masses or palpable nodules. LYMPHATIC: No palpable cervical, supraclavicular, axillary, or inguinal adenopathy. RESPIRATORY: Normal to inspection. Lungs clear to auscultation and percussion. No wheezing, rales, rhonchi or rubs. Normal effort. CARDIOVASCULAR: Regular rate and rhythm. No murmurs, gallops, or rubs. VASCULAR: Carotid, radial, femoral and pedal pulses present bilaterally. No bruits. ABDOMEN: Bowel sounds normoactive. Soft, nontender and non-distended. No hepatosplenomegaly. No masses. GENITOURINARY: No CVA tenderness. No suprapubic fullness or tenderness. No groinadenopathy. No evidence of hernias. INTEGUMENTARY: The skin is unremarkable. Resolved antecubital/chest rashes. No suspicious lesions BACK / SPINE: The back is nontender. No step-off deformity. No CVA tenderness. MUSCULOSKELETAL: Normal musculature, no joint deformities or abnormalities, normal range of motion for all four extremities. EXTREMITIES: No longer has bilateral lower extremity edema; no cyanosis or clubbing. No Vitor sign. NEUROLOGICAL: Alert and oriented. Cranial nerves intact. No gross motor or sensory deficits. PSYCHIATRIC: No anxiety or evidence of depression. - ECOG Performance Status ECOG Score: 1 Results - Labs Labs: Diagram of Most Recent CBC and CMP 05/24/21 14:07 05/24/21 14:07 Labs - Last 7 Days 05/24/21 14:07: Ur Random Albumin 33.0, U Random Total Protein <4.0, U Dqwmq-6-Xpiqubwa (%) 3.1, U Random m-1-Sxjybadh % 13.7, U Random b-Globulin % 26.4, U Random Gamma Glob % 23.7, U Random M-Anselmo (%) Not observed, Urine Random PEP Note , Urine Immunofixation 05/24/21 14:07: Serum Total Protein 6.4, Albumin (Send Out) 3.3, Globulin (PEP) 3.1, Albumin/Globulin (PEP) 1.1, Hvtlt-4-Sxfwsyfsd 0.3, Ujmjr-7-Kfbgymxnt 0.9, Beta Globulins 0.9, Lkhu-1-Mguvdjyzuhmuh 2.8 H, Gamma Globulins 1.0, M-Anselmo Comment:, PEP Note , IgG 944, IgA 137, IgM 29, Serum Immunofixation Comment:, Free [place] LC, Quant 32.7 H, Free Lambda LC, Quant 21.3, Free [place]/Lambda Ratio1.54 05/24/21 14:07: PHA Creatinine Clear 78.43, Sodium 136, Potassium 4.1, Chloride 105, Carbon Dioxide 22.6, BUN 10, Creatinine 0.92, Est GFR ( Amer) > 60, Est GFR (Non-Af Amer) > 60, Glucose 156 H, Calcium 9.1, Total Bilirubin 0.7, AST23, ALT 20, Alkaline Phosphatase 99 H, Total Protein 6.4, Albumin 3.9, Globulin 2.5, Albumin/Globulin Ratio 1.6 05/24/21 14:07: Corrected WBC 3.7 L, Uncorrected WBC Count 3.7 L, RBC 3.52 L, Hgb 12.6 L, Hct 36.0 L, MCV 102.2 H, MCH 35.7 H, MCHC 34.9, RDW 16.9 H, Plt Count 161, MPV 7.2, Neut % (Auto) 43.8, Lymph % (Auto) 25.5, [place] % (Auto) 9.0, Eos % (Auto) 20.7, Baso % (Auto) 1.0, Neut # (Auto) 1.6 L, Lymph # (Auto) 0.9 L,[place] # (Auto) 0.3, Eos # (Auto) 0.8 H, Baso # (Auto) 0.0, Nucleated RBC % (auto)0.1 - Impressions No imaging for review. 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 He had marked elevation in IgG kappa on initial laboratory work-up for renal failure in February 2020. He has remained hemodynamically stable and I discussed in detail with the patient the pathophysiology of multiple myeloma and associated injury to kidneys, persistentanemia, bone disease, and potential hypercalcemia (we do not see hypercalcemia in this patient). He consented to inpatient bone marrow biopsy 03/08/2020 which was diagnostic for multiple myeloma--70% plasma cells without amyloid depositionidentified in small marrow specimen. Normal baseline skeletal survey. I reviewed pathophysiology of myeloma, results of bone marrow biopsy, skeletal survey, and myeloma labs with the patient and his . Patsy consented to begin first cycle Daratumumab, Velcade, and dexamethasone on03/12/2020--other than infusion reaction from first Daratumumab, improved with symptomatic therapy. I reviewed his case with Dr. Quique Hall of [facility]--added Revlimid 5mg qod following significant reduction of light chains in early April 2020. 05/07/2020: As per HPI, Angel and his met with Dr. Hall 04/26/2020 with preparation for likely high-dose chemotherapy/autologous peripheral stem cell transplant if he meets criteria based on cardiopulmonary work-up. He has had greater than 90%. The patient was able to discontinue hemodialysis on 04/24/2020 and has not had any recurrence of edema with now improved renal function, creatinine clearance now 53. --I will continue current therapy with further evaluation by Dr. Hall in 1 month for planning his HDC/autologous stem cell transplant. We will send repeatmyeloma labs (SPEP, IgG, kappa/lambda light chains) in 4 weeks with f/u visit with me the following week to review results as well as evaluation with Dr. Hall for possible stem cell transplant. 06/04/2020: Tolerating chemotherapy well other than increasing neuropathy of hands and feet. Dose reduced Velcade by 25% next cycle. Added daily ferrous sulfate. --He was referred to diabetes management clinic and sees Dr. Heath with regularfollow-up by Dr. Rahman since he is off dialysis. Diabetes control improved. 07/02/2020: Last dose of Velcade today. Neuropathy is stable and pain is well controlled. He will have COVID-19 test on 07/11/2020 for planned admission for stem cell collection on 07/17/2020 then high-dose melphalan followed by peripheral blood stem cell transplant day 0 scheduled 07/23/2020. His next follow-up with me will be in about 4 months after he is completed day 100 transplant follow-up. He may return sooner as needed. 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 Melphalan 100mg/m2 + ASCT Day 0 07/25/2020. 11/26/2020: Followup of [facility] end of therapy bone marrow biopsy 10/18/2020--no minimal residual disease. Started Revlimid maintenance 5mg daily in early October2020. 02/27/2021: No new symptoms other than rash. Slow improvement of neuropathy--titrating off gabapentin with palliative medicine. Benadryl for rash. Continue Revlimid 5mg daily. He will be due for first post transplant vaccines soone--will check schedule with . 05/30/2021: Rash and neuropathy improved. Tolerating Revlimid well. Discussedcoronavirus booster and influenza vaccines. Post transplant vaccines due in 07/2021. No M-spike and normal kappa/lambda ratio. Next followup with me in 3 months for exam and f/u myeloma labs. Extended nephrology followup to annual. May return sooner if new issues arise. F/u skeletal survey 1 yr s/p transplant--ordered prior to next f/u in 3 months. This is a low complexity visit over 20 minutes for symptom and lab review, and followup plan with patient and his . (2) Chemotherapy-induced peripheral neuropathy 25% dose reduction Velcade prior to stem cell transplant due to reports of increased pain from neuropathy in fingers and feet. Worsening symptoms after transplant, referred back to palliative medicine for further management. Gabapentin titrated from 400mg/300mg/400mg to now 200/100/200 off over the past 3 months--will continue to followup with palliative medicine as needed. (3) Iron deficiency anemia Prior leg cramps with low iron saturation. Ferritin inappropriately normal due to inflammation from myeloma. Daily oral iron added due to symptomatic leg cramps and persistent anemia. Recheck iron studies were not ordered--may send with 3 month followup. No longer taking oral iron--mild normocytic anemia post transplant continues to improve. (4) History of hemodialysis Initiated inpatient hemodialysis 02/2020, then transitioned to outpatient hemodialysis 3 times weekly Thursday//Thursday schedule. Chemotherapy given Thursday/. 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 He was actually able to stop dialysis within 2 months with thelast session 04/24/2020 as noted above. Now > 10 months after Melphalan 100mg/m2 + autologous PBSCT given his significant response to initial myeloma directed therapy. Continued f/u with nephrology now annual post transplant due to normal renal function. (5) Steroid-induced diabetes mellitus Qualifiers: Encounter type: subsequent encounter Qualified Code(s): E09.9 - Drug or chemical induced diabetes mellitus without complications; T38.0X5D - Adverse effect of glucocorticoids and synthetic analogues, subsequent encounter Patsy had an excellent response of light chains but was noted to have significant hyperglycemia 300-500 fasting blood sugars. He was referred to diabetes management clinic with addition of insulin therapy that has significantly improved control of his blood sugars. Patient also had remarked on some blurred vision that improved with control of blood sugars. Continue follow-up of blood sugars during admission for transplant in early July. 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 Resumed low dose metformin and titrating down insulin--directed by his primary physician. (6) B12 deficiency Patient was found to have B12 deficiency and was been placed on daily B12 prior to hospital discharge. We continued weekly IM B12 for 8 weeks with his myeloma regimen. Hemoglobin is improved on Aranesp and weekly B12, then changed to monthly maintenance therapy. He has not required further blood transfusions since 03/15/2020. Follow- up methylmalonic acid on 04/30/2020 was normal showing adequate replacement. He will continue monthly IM B12 and weekly vitamin D2 therapy 50,000 units orally for low 25 hydroxy vitamin D stores. He may take supplemental calcium once daily. (7) Encounter for chemotherapy management Started cycle 1 day 1 03/12/2020: Daratumumab 16 mg/kg IV weekly, bortezomib 1.3 mg/kg subcu twice weekly, dexamethasone 40 mg weekly. We added Revlimid 5 mg every other day of each 21-day cycle with cycle 2 due to excellent reduction of kappa light chains (recommended by Dr. Hall malignanthematology). 06/04/2020: 25% DR Bortezumab (100% all other meds) due to worsening neuropathy. Last dose of 4009 07/02/2020) and holding daratumumab per request of Dr. Hall. 07/25/2020: Melphalan 100mg/m2 + autologous PBSCT 10/18/2020: Started Revlimid maintenance after bone marrow biopsy negative for MRD. - Chemo Plan Chemo Plan (Dose, Rate, Freq): 07/25/2020: Melphalan 100mg/m2 + autologous PBSCT-->10/2020 Revlimid 5mg daily maintenance after bone marrow biopsy. Goal of Treatment: Control - Time with Patient Time Spent with Patient (Follow Up Visit): Less than 20 minutes Coordination of Care & Counseling Time: Greater than 50% of time spent with patient was for coordination of care (as documented) and [id number] counseling of patient and/or family. Dictated By: Brook Huddleston MD DD/ [id number] Signed By: <Electronically signed by MD Brook Huddleston> 05/31/21 [id number] [facility] Work Phone: [phone] 106-892407-14-2021 Progress note Author Brook Huddleston [facility] February 27, 2021 8:52pm Note Date/Time February 27, 2021 2:50 pm [facility] [place] [address] Hem/Onc Follow Up Note - OP Signed Patient: Patsy Mills MR#: [id number] : 1945 Acct:[id number] Age/Sex: 76 / M Type: REG RCR Copies to: MD Quique English MD Katherine M McGraw, APRN Richard R Keller, MD~ Subjective Date/Time of Service: Date of Service: 02/27/2021 Time of Service: 14:49 Chief Complaint: Patient is here today for 3 month follow up visit for light chain nephropathy d/t multiple myeloma. He is here to go over labs. HPI: 02/27/2021: Here for 3-month follow-up, prior autologous stem cell transplant 07/25/2021. No limitations of daily activities--normal appetite, denies pain. Previously noted increased rash over bilateral antecubital areas, chest and back. He is titrating off gabapentin due to improving neuropathy and rash mildly better. Still on Revlimid 5mg daily. Uses benadryl prn for pruritus and rash. Will contact for post transplant vaccines. Stable kappa/lambda ratio--no M-spike serum and urine testing. Quant immunoglobulins normal. I will f/u with myeloma labs in 3 months--CBC, CMP, SPEP, quant IGs, kappa/lambda light chains and beta2 microglobulin. He and his are in agreement with this plan. 11/26/2020: Patsy is here for followup after D86 bone marrow biopsy at [facility] on 10/18/2020. No evidence of MRD--0.5% plasma cells andno clonal plasma cells suggestive of residual myeloma. Tolerating maintenance Revlimid 5mg daily well. No bone pain and normal renal function--Dr. Vincent hasreleased for annual nephrology followup. He is fully vaccinated for [id number] and I contacted Dr. Hall for coordination of post transplant vaccines. Stable neuropathy with gabapentin escalated to 400mg am, 300mg midday, 400mg pm. Continues followup with palliative medicine. He has phone f/u with Dr. Hall later this week. I will f/u with myeloma labs in 3 months--CBC, CMP, SPEP, quant IGs, kappa/lambda light chains and beta2 microglobulin. He and his are in agreement with this plan. 10/15/2020: Patsy is here with his for transfer of care after Melphalan 100mg/m2 autologous stem cell transplant D0 = 07/25/2021. He is now D+83 and one week ago, he saw Dr. Hall for survivorship visit. We reviewed his post transplant course and prior infections have now resolved. Blood counts have recovered and renal function at prior baseline. He has persistent neuropathy ongabapentin 200mg am, 100mg noon, 200mg pm. I'm setting him up for palliative consultation (previously followed by [facility]). He has a followup bone marrow biopsy scheduled with Dr. Hall in 3 days to document remission. I will discuss with him the plan after bone marrow biopsy--I briefly discussed Revlimidmaintenance with Mr. Mills and his . I will contact patient after bone marrow results to confirm plan with Dr. Hall and f/u with him in about 6 weeks with myeloma labs. 07/02/2020: Patsy has completed all of his pretransplant evaluation at [facility] including cardiology visit 11 9 which showed ejection fraction 60%. I have contacted Dr. Hall who noted that today will be his last day of Velcade and we will hold his daratumumab. He was to have a COVID-19 teston 07/11/2020 for planned stem cell collection 07/17 and transplant on 07/23. I clarified with the staff at [facility] this this may be performed at [facility] and forwarded to them. 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 His pain mainly in hips is about 3 out of 10 and controlled with Percocet. His next follow-up with me yeni be in about 4 months when he is post transplant although I am happy to see him sooner if new issues arise in his post transplant course that need to bemanaged closer to home. His most recent labs reveal improving hemoglobin (11.5), stable renal function (creatinine 1.35), normal calcium, and appropriateresponse of kappa light chain to now normal 18 with K/L ratio 2.02. 06/04/2020: Met with Dr. Hall on 05/24/2020 to discuss planning for high-dose chemotherapy peripheral blood stem cell transplant. He has now hemodialysis independent after daratumumab, dexamethasone, and Velcade with addition of Revlimid. Today he reports that he has had increased neuropathy symptoms in hisbilateral hands and feet with mild interference with activity (grade 2). We discussed a 25% dose reduction of Velcade on day 1, day 4, day 8, day 11 with current cycle of DVdR. He has some leg cramps at night, with normal magnesium, but low iron saturation noted--will start daily iron for symptoms. Otherwise heis tolerating therapy well and creatinine is now normal. He was given educationfor the transplant course and he is scheduled in late June after Thanksgiving to proceed with stem cell collection and transplant. I will communicate with Dr. Hall regarding end of therapy and in 1 month I will see him with follow-up myeloma studies. No other new concerns today. 05/07/2020: Patsy is here for 1 month follow-up. Outpatient hemodialysis was stopped after 04/24/2020 due to excellent response. He was evaluated by Dr. Small at [facility] on 04/26/2020. Angel and his note that Dr. Hall felt that he was physiologically about 8 years younger than his chronologic age and would likely be transplant eligible if pretransplant work-updeems this feasible. He recommended continuing current daratumumab and Velcade with low-dose Revlimid. He will reevaluate patient in 1 month and likely plan admission for stem cell collection, then high-dose chemotherapy/autologous stem cell transplantation in June or July. The patient's was concerned that she did not understand much of the pretransplant teaching and I explained to her and Don the pathophysiology of plasma cells, light chains, his improving trend of renal function, goal of 90% kappa/lambda ratio reduction prior to transplant. We also refilled Revlimid 5 mg every other day, weekly vitamin D, and I am giving him a trial of tramadol 50 mg every 12 hours as Tylenol is not effective for his pain and we are avoiding NSAIDs and additional aspirin. He otherwise has no toxicities of chemotherapy. He sees Dr. Heath for follow-up tomorrow and maintains insulin with stabilization of his blood sugars following with diabetes management clinic. I will see him in follow-up with myeloma labs in 1 month plan end of therapy prior to transplant. 04/09/2020: Here for one month f/u with his . He continues outpatient hemodialysis on Thursday//Saturdays. He notes fatigue, but generalized edema remarkably improved with no significant pain. I reviewed his M-spike, IgGand kappa light chains with K/L ratio that has remarkably improved (>90% reduction past month). [place] light chains decreased from 12,000 to 42. Only concern is significant hyperglycemia with dexamethasone. 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 I will coordinate evaluation by Dr. Quique Hall for HDC/autologous stem cell transplantevaluation and hold on adding Revlimid since significant response of light chains noted. I contacted Dr. Rahman of nephrology to consider reducing hemodialysis days to twice weekly. I will send myeloma labs in about 4 weeks, have himsee Dr. Hall and f/u with me the following week to review plan and determine whether plan for HDC/stem cell transplant. 03/14/2020: Patient presents with his today after initiating both outpatienthemodialysis on Thursday//Saturdays and initial cycle of daratumumab, bortezomib, dexamethasone with potential addition of Revlimid after 1 month if less than optimal response. He received his first cycle of combination chemotherapy 03/12/2020. --Patient tolerated initial daratumumab infusion reasonably well with brief infusion reaction (dizziness and mild wheezing) that was treated with diphenhydramine, steroids, albuterol, and Demerol for rigors. He completed remaining infusion in an outpatient bed on the inpatient [facility] Thursday and we anticipate further weekly daratumumab infusions as an outpatient. --Patient was seen at dialysis today and noted to have hemoglobin 6.8. He will receive 1 unit of packed red blood cells prior to Velcade today for scheduled tomorrow. His was unable to be present at the hospital at time of diagnosis and his initial bone marrow biopsy was performed on 03/08/2020. She requests evaluation with him today for extensive questions regarding his care. She reported her session and requested a copy of this progress note following our visit today. 1. She asked if all the tests at the hospital returned. We discussed the teststhat are used to follow-up myeloma including his elevated IgG, elevated free kappa light chains, and elevated M spike. We discussed in detail the pathophysiology of myeloma but she felt very anxious and overwhelmed and I reassured her that we will readdress this at further follow-up visits. 2. Patient had a metastatic bone survey showing no areas of lytic disease or pathologic fractures. We discussed CRAB criteria for multiple myeloma diagnosisand that he meets criteria of R renal and A anemia, but not elevated calcium or bone disease (C and B). She specifically asked is stage of multiple myeloma andwe noted that he still will require beta-2 glycoprotein (ISS) but is most consistent with stage III. We are still awaiting his chromosomal abnormalities by fluorescence in situ hybridization and will readdress at next follow-up visitwith his final bone marrow biopsy results (this study was only performed 03/08/2020). 3. She wanted to know if his testing showed cancer elsewhere. We discussed that since metastatic bone survey showed more lytic areas I do not feel that F-18 PET is high priority but this may be ordered at some point to assess for any asymptomatic bony metastatic disease. 4. He has recently had elevated blood sugars and does not have a history of diabetes, but we discussed that with weekly steroids he should likely have additional insulin on his steroid days. I offered that this could be managed byhis primary physician Dr. Heath and he could be referred for diabetes management clinic. 5. We reiterated multiple times that his schedule may be variable. He will typically have a long infusion on Mondays with daratumumab but initially he willpresent twice weekly for Velcade injection on Mondays and . This will change during the course of his therapy and he should refer to his calendar. 6. We discussed not taking additional vitamins unless approved by nephrology. I also discussed potentially adding Revlimid and we will address at future visits if this is needed based on his follow-up labs ordered 04/02/2020. His medications may be filled either locally or with his prescription plan, but manyof these will be ordered by nephrology. He is to continue vitamin D2 as recommended by nephrology. Blood pressure medications will be regulated by primary care and nephrology. 7. We discussed concerning side effects, most commonly hyperglycemia, insomnia,risk of thrombosis (recently was diagnosed with left superficial thrombosis of the left upper extremity and additional heparin is given with his dialysis), andneuropathy with Velcade. Patients do not tend to have significant nausea or possible appetite (effects of dexamethasone increase his appetite). I cannot recommend medical marijuana and would discuss this with his pre coder whetherthis would interfere with dialysis. We will also follow closely for cytopenias and reviewed infectious precautions. He has a son from [place] who plans to visit on Thursday and we discussed COVID-19 testing appropriate social isolation protocols. 8. We discussed whether he was eligible for transplant and this will be evaluated based on his response and overall health in likely 3 to 4 months afterinitiation of therapy. We did not discuss autologous stem cell transplant in detail. We did discuss that although this is not curative therapy, many patients are controlled with medication over longer periods of time (often 5 to 6 years) with appropriate therapy. It is an aggressive cancer due to its significant infectious risk and association with renal failure. 9. Exercise may be performed as tolerated but should be done in moderation and likely we should wait a few weeks for more significant exercise given his recentdialysis and initiation of chemotherapy. I did not specifically address his diet but he may address this with our [facility] nutrition team. He will also receivechemotherapy class with our nurses in the infusion center. PRELIMINARY HISTORY (from initial consult 03/08/2020): This is a 76-year-old male who was transferred from [place] emergency room by [facility] due to critical potassium 8.7 with elevated creatinine 11.2 and BUN 82 on 03/04/2020. We do not have any recent blood work for comparison but he hadnormal creatinine in 2011. He was urgently treated for his hyperkalemia and dialysis was arranged emergently by nephrology team. He has now stabilized on dialysis and had extensive work-up for etiology of his acute renal failure with severe anemia felt to be due to anemia of renal insufficiency. Iron studies returned normal with ferritin 160, but B12 low at 84 and folate low normal at 5.2. He is receiving appropriate B12 repletion. The patient reports that he has had a prolonged period of fatigue up to a year and has decreased appetite with subjective weight loss. He denies any significant bone pain other than pain in his right shoulder and has no prior falls or recurrent back pain. He had a shoulder film showing labral pathology of the joint but no fracture or dislocation. Myeloma labs were sent showing M spike 3.6 g/dL with serum immunofixation showing IgG kappa light chain specificity. Serum IgG markedly elevated at 5312 and free kappa light chain 12,649.9 with normal free lambda light chain 11.94 free kappa/lambda ratio 1063. Hepatitis A, B, and C serologies were all negative and COVID-19 screening was negative. LORE, c-ANCA, p-ANCA, anti-GBM, and antimyeloperoxidase were all negative. Clinically the patient has multiple myeloma and I explained that we needed to proceed with bone marrow aspiration and biopsy to provide baseline for diagnosis and to expedite chemotherapy with an aggressive regimen to reduce his light chains. I will review information with him at noon today around the time of his bone marrow biopsy for combinationdaratumumab 16 mg/kg IV weekly, bortezomib 1.3 mg/kg subcu twice weekly, dexamethasone 40 mg weekly, and Revlimid 25 mg p.o. daily days 1 through 14 of each 21-day cycle. Revlimid will be ordered through a special pharmacy. We will schedule his infusions as an outpatient early next week on his nondialysis days. Written literature for these medications will be provided and he may signinformed consent so that we may order this regimen as an outpatient. The patient's is not with him today but has been treated by me for breast cancer in the past and had multiple questions. We would like to arrange a time for her to be available to ask questions and be present for chemo consent, possibly around noon today. This will need to be coordinated with nursing staffdue to [facility]-19 visitor restriction policy. - Summary of Therapies Summary of Therapies: Cycle 1 day 1 03/12/2020: Daratumumab 16 mg/kg IV weekly, bortezomib 1.3 mg/kg subcu twice weekly, dexamethasone 40 mg weekly. 04/09/2020: Under direction of Dr. Hall, in early April we added Revlimid 5 mg every other day of each 21-day cycle with cycle 2 due to excellent response of kappa light chains. 04/26/2020: Malignant hematology eval for possible high-dose chemotherapy/autologous stem cell transplant. He was able to stop dialysis 04/24/2020. Given Velcade only (hold daratumumab) on 07/02/2020. 07/25/2020: Melphalan 100mg/m2 IV day 0 autologous stem cell transplant 07/25/2020at [facility]. 11/26/2020: Follow-up bone marrow aspiration and biopsy 10/18/2020 for MRD evaluation shows hypocellular marrow with 0.5% plasma cells, no clonal population by flow cytometry but 0.03% kappa light chain skewing. Started Revlimid 5 mg daily for maintenance therapy early October 2020. ROS Details: All systems reviewed & no additional complaints except as documented Subjective/ROS - Narrative: CONSTITUTIONAL: Improved fatigue since HD Melphalan/ASCT, negative for fever or night sweats. Post-transplant infections as per HPI, now resolved. HEAD AND NECK: Improvement of prior blurred vision since control of his diabetesmellitus. Negative for changes in hearing. Negative for mouth ulcers, nasal congestion and nasal drainage. PULMONARY: Negative for chest pain, cough and dyspnea. CARDIOVASCULAR: Negative for claudication and irregular heartbeat/palpitations. Resolved edema since diagnosis, now off dialysis. GASTROINTESTINAL: Negative for abdominal pain, constipation, diarrhea, nausea orvomiting. Improved appetite and 20 kg weight loss after starting dialysis, chemotherapy, and transplant for light chain nephropathy. 11/2020--returned to baseline weight pretransplant. GENITOURINARY: Negative for dysuria and hematuria. Improved urinary output, diagnosed in February 2020 with renal failure requiring dialysis--off dialysis 04/24/2020. Prior nephrolithiasis previously followed by Dr. Seals. ENDOCRINE: Negative for cold intolerance and heat intolerance. Improvement of prior hyperglycemia with home blood sugars in the 100-200s on supplemental insulin glargine. CENTRAL NERVOUS SYSTEM: Negative for gait disturbance and headache. No focal neurologic deficits or history of stroke. 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 PSYCHIATRIC: Negative for anxiety or depression. DERMATOLOGICAL: Positive for pruritus and rash as per HPI. Negative for suspicious skin lesions. MUSCULOSKELETAL: Resolved back pain and and thigh pain. Positive for leg crampsdue to neuropathy. No longer on ferrous sulfate post transplant. HEMATOLOGICAL: Negative for bleeding and easy bruising. Negative for history of transfusion (other than 1 unit packed red blood cells prior admission). Positive for left basilic vein thrombus on Doppler ultrasound 03/12/2020--no longer requires anticoagulation. ALLERGY: Negative for environmental allergies and food allergies. [facility] - History Attestation statement: The following information was validated with the patient. Source: Old Records Reviewed - Medical History Medical History: Medical History (Last Reviewed 02/27/21 @ 20:34 by Brook Huddleston MD) Apnea Arthritis Diabetes mellitus, type 2 Hyperlipidemia Hypertension Kidney stones Skin cancer - Family History Family History: Family History (Last Reviewed 02/27/21 @ 20:34 by Brook Huddleston MD) Sister Myocardial infarct Mother Myocardial infarct Father Skin cancer - Social History Smoking Status: Former smoker Tobacco Type: cigarettes Substance Use Type: None Home Medications & Allergies Allergies No Known Allergies Allergy (Verified 02/27/21 14:44) Home Medications famotidine 20 mg tablet 20 mg PO DAILY #30 tab 03/10/20 [Rx Confirmed 02/27/21] insulin glargine 100 unit/mL (3 mL) subcutaneous pen (Lantus Solostar U-100 Insulin) 12 unit SUBCUT DAILY 04/27/20 [History Confirmed 02/27/21] insulin lispro 100 unit/mL subcutaneous pen (Humalog KwikPen (U-100) Insulin) 6 - 16 unit SUBCUT DIRECTED 04/27/20 [History Confirmed 02/27/21] hydralazine 50 mg tablet 25 mg PO BID 07/02/20 [History Confirmed 02/27/21] atorvastatin 20 mg tablet 20 mg PO DAILY 10/15/20 [History Confirmed 02/27/21] cholecalciferol (vitamin D3) 50 mcg (2,000 unit) capsule (Vitamin D3) 50 mcg PO DAILY 10/15/20 [History Confirmed 02/27/21] furosemide 40 mg tablet 20 mg PO DAILY 10/15/20 [History Confirmed 02/27/21] gabapentin 100 mg tablet 100 mg PO DAILY PRN 10/15/20 [History Confirmed 02/27/21] loperamide 2 mg capsule 2 mg PO QID PRN 10/15/20 [History Confirmed 02/27/21] sulfamethoxazole 800 mg-trimethoprim 160 mg tablet (Bactrim DS) 1 tab PO BID 10/15/20 [History Confirmed 02/27/21] tramadol 50 mg tablet 50 mg PO DAILY PRN 10/15/20 [History Confirmed 02/27/21] aspirin 81 mg tablet,delayed release 81 mg PO DAILY 11/26/20 [History Confirmed 02/27/21] metformin 500 mg tablet 1,000 mg PO DAILY 11/26/20 [History Confirmed 02/27/21] acyclovir 400 mg tablet 400 mg PO BID 60 Days #120 tab 12/19/20 [Rx Confirmed 02/27/21] lenalidomide 5 mg capsule (Revlimid) 5 mg PO DAILY 28 Days #28 cap 02/13/21 [Rx Confirmed 02/27/21] potassium chloride 20 mEq tablet,extended release 20 meq PO DAILY #90 tab 02/26/21 [Rx Confirmed 02/27/21] Objective - Height/Weight Height/Weight: Height 5 ft 10 in Weight 93.44 kg BSA for Today's Weight 2.10 - Vital Signs Vital Signs: 02/27/21 14:45 Temperature 98.0 F Pulse Rate [Monitor] 78 Respiratory Rate 20 Blood Pressure [Left Arm] 153/73 H 02 Sat by Pulse Oximetry 78 L - Pain Right Hip Pain Intensity: 5 Generalized Pain Intensity: 1 Left Upper Arm Pain Intensity: 4 - Emotional Needs Assessment Emotional Needs Assessment: Emotional Needs Identified? No Physical Exam Narrative: CONSTITUTIONAL: The patient is in no acute distress. No longer appears fatigued. HEAD / FACE: Normocephalic. EYES: Pupils are equal and reactive to light. Conjunctivae and lids are benign in appearance. Ocular movement intact. EARS: Hearing grossly intact. NOSE / MOUTH / THROAT: Nose, mouth, tongue and oropharynx are benign in appearance. No signs of inflammation. NECK / THYROID: Neck is supple. Thyroid is symmetrical, without thyromegaly, masses or palpable nodules. LYMPHATIC: No palpable cervical, supraclavicular, axillary, or inguinal adenopathy. RESPIRATORY: Normal to inspection. Lungs clear to auscultation and percussion. No wheezing, rales, rhonchi or rubs. Normal effort. CARDIOVASCULAR: Regular rate and rhythm. No murmurs, gallops, or rubs. VASCULAR: Carotid, radial, femoral and pedal pulses present bilaterally. No bruits. ABDOMEN: Bowel sounds normoactive. Soft, nontender and non-distended. No hepatosplenomegaly. No masses. GENITOURINARY: No CVA tenderness. No suprapubic fullness or tenderness. No groinadenopathy. No evidence of hernias. INTEGUMENTARY: The skin is unremarkable. + bilateral antecubital mild rashes--few lesions over chest. No suspicious lesions BACK / SPINE: The back is nontender. No step-off deformity. No CVA tenderness. MUSCULOSKELETAL: Normal musculature, no joint deformities or abnormalities, normal range of motion for all four extremities. EXTREMITIES: No longer has bilateral lower extremity edema; no cyanosis or clubbing. No Vitor sign. NEUROLOGICAL: Alert and oriented. Cranial nerves intact. No gross motor deficits. Numbness bilateral feet due to neuropathy. PSYCHIATRIC: No anxiety or evidence of depression. - ECOG Performance Status ECOG Score: 1 Results - Labs Labs: Diagram of Most Recent CBC and CMP 02/20/21 11:25 02/20/21 11:25 Labs - Last 7 Days 02/20/21 11:25: Serum Total Protein 6.2, Albumin (Send Out) 3.4, Globulin (PEP) 2.8, Albumin/Globulin (PEP) 1.2, Ajtqh-4-Hnudfiyoh 0.2, Xksae-3-Rtuklujlk 0.9, Beta Globulins 0.9, Ndoz-5-Uvhulkrtybzcg 2.3, Gamma Globulins 0.7, M-Anselmo Not observed, PEP Note , IgG 749, IgA 89, IgM 21, Serum Immunofixation , Free [place] LC, Quant 30.3 H, Free Lambda LC, Quant 16.7, Free [place]/Lambda Ratio 1.81 H 02/20/21 11:25: PHA Creatinine Clear 68.45, Sodium 134 L, Potassium 4.3, Chloride 103, Carbon Dioxide 21.5 L, BUN 14, Creatinine 1.04, Est GFR ( Amer) > 60, Est GFR (Non-Af Amer) > 60, Glucose 227 H, Calcium 8.9, Total Bilirubin 0.8, AST 23, ALT 27, Alkaline Phosphatase 94 H, Total Protein 6.1, Albumin 3.9, Globulin 2.2, Albumin/Globulin Ratio 1.8 - Impressions No new imaging for review. 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 He had marked elevation in IgG kappa on initial laboratory work-up for renal failure in February 2020. He has remained hemodynamically stable and I discussed in detail with the patient the pathophysiology of multiple myeloma and associated injury to kidneys, persistentanemia, bone disease, and potential hypercalcemia (we do not see hypercalcemia in this patient). He consented to inpatient bone marrow biopsy 03/08/2020 which was diagnostic for multiple myeloma--70% plasma cells without amyloid depositionidentified in small marrow specimen. Normal baseline skeletal survey. I reviewed pathophysiology of myeloma, results of bone marrow biopsy, skeletal survey, and myeloma labs with the patient and his . Patsy consented to begin first cycle Daratumumab, Velcade, and dexamethasone on03/12/2020--other than infusion reaction from first Daratumumab, improved with symptomatic therapy. I reviewed his case with Dr. Quique Hall of Malignant Hematology--added Revlimid 5mg qod following significant reduction of light chains in early April 2020. 05/07/2020: As per HPI, Angel and his met with Dr. Hall 04/26/2020 with preparation for likely high-dose chemotherapy/autologous peripheral stem cell transplant if he meets criteria based on cardiopulmonary work-up. He has had greater than 90%. The patient was able to discontinue hemodialysis on 04/24/2020 and has not had any recurrence of edema with now improved renal function, creatinine clearance now 53. --I will continue current therapy with further evaluation by Dr. Hall in 1 month for planning his HDC/autologous stem cell transplant. We will send repeatmyeloma labs (SPEP, IgG, kappa/lambda light chains) in 4 weeks with f/u visit with me the following week to review results as well as evaluation with Dr. Hall for possible stem cell transplant. 06/04/2020: Tolerating chemotherapy well other than increasing neuropathy of hands and feet. Dose reduced Velcade by 25% next cycle. Added daily ferrous sulfate. --He was referred to diabetes management clinic and sees Dr. Heath with regularfollow-up by Dr. Rahman since he is off dialysis. Diabetes control improved. 07/02/2020: Last dose of Velcade today. Neuropathy is stable and pain is well controlled. He will have COVID-19 test on 07/11/2020 for planned admission for stem cell collection on 07/17/2020 then high-dose melphalan followed by peripheral blood stem cell transplant day 0 scheduled 07/23/2020. His next follow-up with ga will be in about 4 months after he is completed day 100 transplant follow-up. He may return sooner as needed. 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 Melphalan 100mg/m2 + ASCT Day 0 07/25/2020. 11/26/2020: Followup of [facility] end of therapy bone marrow biopsy 10/18/2020--no minimal residual disease. Started Revlimid maintenance 5mg daily in early October2020. 02/27/2021: No new symptoms other than rash. Slow improvement of neuropathy--titrating off gabapentin with palliative medicine. Benadryl for rash. Continue Revlimid 5mg daily. He will be due for first post transplant vaccines soone--will check schedule with . Next followup with ga in 3 months for exam and f/u myeloma labs. Extended nephrology followup to annual. May return sooner if new issues arise. F/u skeletal survey 1 yr s/p transplant. This is a moderate complexity visit over 30 minutes for symptom and lab review, and coordination of care with tertiary malignant hematology, and ongoing counseling treatment course with patient and his . (2) Chemotherapy-induced peripheral neuropathy 25% dose reduction Velcade prior to stem cell transplant due to reports of increased pain from neuropathy in fingers and feet. Worsening symptoms after transplant, referred back to palliative medicine for further management. Gabapentin titrated from 400mg/300mg/400mg to now 200/100/200 each day--will continue to followup with palliative medicine. (3) Iron deficiency anemia Prior leg cramps with low iron saturation. Ferritin inappropriately normal due to inflammation from myeloma. Daily oral iron added due to symptomatic leg cramps and persistent anemia. Recheck iron studies were not ordered--december send with 3 month followup. No longer taking oral iron--mild normocytic anemia post transplant continues to improve. (4) History of hemodialysis Initiated inpatient hemodialysis 02/2020, then transitioned to outpatient hemodialysis 3 times weekly Thursday//Thursday schedule. Chemotherapy given Thursday/. 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 He was actually able to stop dialysis within 2 months with the last session 04/24/2020 as noted above. High-dose chemotherapy with autologous stem cell transplant was offered by Dr. Hall met at [facility] H[facility] based on his good physiologic health despite his advanced age if cardiopulmonary work-up for this is suitable. For now we will give last dose Velcade (with 25% DR for neuropathy), dexamethasone today--holding daratumumab per Dr. Hall's request. Now > 6 months after Melphalan 100mg/m2 + autologous PBSCT in early July given his significant response to initial myeloma directed therapy. Continued f/u with nephrology now annual post transplant due to normal renal function. (5) Steroid-induced diabetes mellitus Qualifiers: Encounter type: subsequent encounter Qualified Code(s): E09.9 - Drug or chemical induced diabetes mellitus without complications; T38.0X5D - Adverse effect of glucocorticoids and synthetic analogues, subsequent encounter Patsy had an excellent response of light chains but was noted to have significant hyperglycemia 300-500 fasting blood sugars. He was referred to diabetes management clinic with addition of insulin therapy that has significantly improved control of his blood sugars. Patient also had remarked on some blurred vision that improved with control of blood sugars. Continue follow-up of blood sugars during admission for transplant in early July. Improving peripheral neuropathy complaints in bilateral hands and feet after 25%dose reduction of Velcade and worsening post transplant. Resumed low dose metformin and titrating down insulin--directed by his primary physician. (6) B12 deficiency Patient was found to have B12 deficiency and was been placed on daily B12 prior to hospital discharge. We continued weekly IM B12 for 8 weeks with his myeloma regimen. Hemoglobin is improved on Aranesp and weekly B12, then changed to monthly maintenance therapy. He has not required further blood transfusions since 03/15/2020. Follow- up methylmalonic acid on 04/30/2020 was normal showing adequate replacement. He will continue monthly IM B12 and weekly vitamin D2 therapy 50,000 units orally for low 25 hydroxy vitamin D stores. He may take supplemental calcium once daily. (7) Rash and nonspecific skin eruption May be due to higher dose gabapentin--will continue titrating off and symptomatic therapy. (8) Encounter for chemotherapy management Started cycle 1 day 1 03/12/2020: Daratumumab 16 mg/kg IV weekly, bortezomib 1.3 mg/kg subcu twice weekly, dexamethasone 40 mg weekly. We added Revlimid 5 mg every other day of each 21-day cycle with cycle 2 due to excellent reduction of kappa light chains (recommended by Dr. Hall malignanthematology). 06/04/2020: 25% Bortezumadarryl (100% all other meds) due to worsening neuropathy. Last dose of 4009 07/02/2020) and holding daratumumab per request of Dr. Hall. 07/25/2020: Melphalan 100mg/m2 + autologous PBSCT 10/18/2020: Started Revlimid maintenance after bone marrow biopsy negative for MRD. - Chemo Plan Chemo Plan (Dose, Rate, Freq): 07/25/2020: Melphalan 100mg/m2 + autologous PBSCT-->10/2020 Revlimid 5mg daily maintenance after bone marrow biopsy. Goal of Treatment: Control - Time with Patient Time Spent with Patient (Follow Up Visit): 35 minutes Coordination of Care & Counseling Time: Greater than 50% of time spent with patient was for coordination of care (as documented) and [id number] counseling of patient and/or family. Dictated By: Brook Huddleston MD DD/ [id number] Signed By: <Electronically signed by MD Brook Huddleston> 02/27/212051 [facility] Work Phone: [phone] Progress note Author Brook Huddleston [facility] February 27, 2021 8:52pm Note Date/Time February 27, 2021 2:50 pm [facility] [place] [address] Hem/Onc Follow Up Note - OP Signed Patient: Patsy Mills MR#: [id number] : 1945 Acct:[id number] Age/Sex: 76 / M Type: REG RCR Copies to: MD Quique English MD Katherine M McGraw, APRN Richard R Keller, MD~ Subjective Date/Time of Service: Date of Service: 02/27/2021 Time of Service: 14:49 Chief Complaint: Patient is here today for 3 month follow up visit for light chain nephropathy d/t multiple myeloma. He is here to go over labs. HPI: 02/27/2021: Here for 3-month follow-up, prior autologous stem cell transplant 07/25/2021. No limitations of daily activities--normal appetite, denies pain. Previously noted increased rash over bilateral antecubital areas, chest and back. He is titrating off gabapentin due to improving neuropathy and rash mildly better. Still on Revlimid 5mg daily. Uses benadryl prn for pruritus and rash. Will contact for post transplant vaccines. Stable kappa/lambda ratio--no M-spike serum and urine testing. Quant immunoglobulins normal. I will f/u with myeloma labs in 3 months--CBC, CMP, SPEP, quant IGs, kappa/lambda light chains and beta2 microglobulin. He and his are in agreement with this plan. 11/26/2020: Patsy is here for followup after D86 bone marrow biopsy at [facility] on 10/18/2020. No evidence of MRD--0.5% plasma cells andno clonal plasma cells suggestive of residual myeloma. Tolerating maintenance Revlimid 5mg daily well. No bone pain and normal renal function--Dr. Vincent hasreleased for annual nephrology followup. He is fully vaccinated for [id number] and I contacted Dr. Hall for coordination of post transplant vaccines. Stable neuropathy with gabapentin escalated to 400mg am, 300mg midday, 400mg pm. Continues followup with palliative medicine. He has phone f/u with Dr. Hall later this week. I will f/u with myeloma labs in 3 months--CBC, CMP, SPEP, quant IGs, kappa/lambda light chains and beta2 microglobulin. He and his are in agreement with this plan. 10/15/2020: Patsy is here with his for transfer of care after Melphalan 100mg/m2 autologous stem cell transplant D0 = 07/25/2021. He is now D+83 and one week ago, he saw Dr. Hall for survivorship visit. We reviewed his post transplant course and prior infections have now resolved. Blood counts have recovered and renal function at prior baseline. He has persistent neuropathy ongabapentin 200mg am, 100mg noon, 200mg pm. I'm setting him up for palliative consultation (previously followed by [facility] Olivia). He has a followup bone marrow biopsy scheduled with Dr. Hall in 3 days to document remission. I will discuss with him the plan after bone marrow biopsy--I briefly discussed Revlimidmaintenance with Mr. Mills and his . I will contact patient after bone marrow results to confirm plan with Dr. Hall and f/u with him in about 6 weeks with myeloma labs. 07/02/2020: Patsy has completed all of his pretransplant evaluation at [facility] including cardiology visit 06 25 which showed ejection fraction 60%. I have contacted Dr. Hall who noted that today will be his last day of Velcade and we will hold his daratumumab. He was to have a COVID-19 teston 07/11/2020 for planned stem cell collection 07/17 and transplant on 07/23. I clarified with the staff at [facility] this this may be performed at [facility] and forwarded to them. 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 His pain mainly in hips is about 3 out of 10 and controlled with Percocet. His next follow-up with me yeni be in about 4 months when he is post transplant although I am happy to see him sooner if new issues arise in his post transplant course that need to bemanaged closer to home. His most recent labs reveal improving hemoglobin (11.5), stable renal function (creatinine 1.35), normal calcium, and appropriateresponse of kappa light chain to now normal 18 with K/L ratio 2.02. 06/04/2020: Met with Dr. Hall on 05/24/2020 to discuss planning for high-dose chemotherapy peripheral blood stem cell transplant. He has now hemodialysis independent after daratumumab, dexamethasone, and Velcade with addition of Revlimid. Today he reports that he has had increased neuropathy symptoms in hisbilateral hands and feet with mild interference with activity (grade 2). We discussed a 25% dose reduction of Velcade on day 1, day 4, day 8, day 11 with current cycle of DVdR. He has some leg cramps at night, with normal magnesium, but low iron saturation noted--will start daily iron for symptoms. Otherwise heis tolerating therapy well and creatinine is now normal. He was given educationfor the transplant course and he is scheduled in late June after Thanksgiving to proceed with stem cell collection and transplant. I will communicate with Dr. Hall regarding end of therapy and in 1 month I will see him with follow-up myeloma studies. No other new concerns today. 05/07/2020: Patsy is here for 1 month follow-up. Outpatient hemodialysis was stopped after 04/24/2020 due to excellent response. He was evaluated by Dr. Small at [facility] on 04/26/2020. Angel and his note that Dr. Hall felt that he was physiologically about 8 years younger than his chronologic age and would likely be transplant eligible if pretransplant work-updeems this feasible. He recommended continuing current daratumumab and Velcade with low-dose Revlimid. He will reevaluate patient in 1 month and likely plan admission for stem cell collection, then high-dose chemotherapy/autologous stem cell transplantation in June or July. The patient's was concerned that she did not understand much of the pretransplant teaching and I explained to her and Don the pathophysiology of plasma cells, light chains, his improving trend of renal function, goal of 90% kappa/lambda ratio reduction prior to transplant. We also refilled Revlimid 5 mg every other day, weekly vitamin D, and I am giving him a trial of tramadol 50 mg every 12 hours as Tylenol is not effective for his pain and we are avoiding NSAIDs and additional aspirin. He otherwise has no toxicities of chemotherapy. He sees Dr. Heath for follow-up tomorrow and maintains insulin with stabilization of his blood sugars following with diabetes management clinic. I will see him in follow-up with myeloma labs in 1 month plan end of therapy prior to transplant. 04/09/2020: Here for one month f/u with his . He continues outpatient hemodialysis on Thursday//Saturdays. He notes fatigue, but generalized edema remarkably improved with no significant pain. I reviewed his M-spike, IgGand kappa light chains with K/L ratio that has remarkably improved (>90% reduction past month). [place] light chains decreased from 12,000 to 42. Only concern is significant hyperglycemia with dexamethasone. 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 I will coordinate evaluation by Dr. Quique Hall for HDC/autologous stem cell transplantevaluation and hold on adding Revlimid since significant response of light chains noted. I contacted Dr. Rahman of nephrology to consider reducing hemodialysis days to twice weekly. I will send myeloma labs in about 4 weeks, have himsee Dr. Hall and f/u with me the following week to review plan and determine whether plan for HDC/stem cell transplant. 03/14/2020: Patient presents with his today after initiating both outpatienthemodialysis on Thursday//Saturdays and initial cycle of daratumumab, bortezomib, dexamethasone with potential addition of Revlimid after 1 month if less than optimal response. He received his first cycle of combination chemotherapy 03/12/2020. --Patient tolerated initial daratumumab infusion reasonably well with brief infusion reaction (dizziness and mild wheezing) that was treated with diphenhydramine, steroids, albuterol, and Demerol for rigors. He completed remaining infusion in an outpatient bed on the inpatient [place] Thursday and we anticipate further weekly daratumumab infusions as an outpatient. --Patient was seen at dialysis today and noted to have hemoglobin 6.8. He will receive 1 unit of packed red blood cells prior to Velcade today for scheduled tomorrow. His was unable to be present at the hospital at time of diagnosis and his initial bone marrow biopsy was performed on 03/08/2020. She requests evaluation with him today for extensive questions regarding his care. She reported her session and requested a copy of this progress note following our visit today. 1. She asked if all the tests at the hospital returned. We discussed the teststhat are used to follow-up myeloma including his elevated IgG, elevated free kappa light chains, and elevated M spike. We discussed in detail the pathophysiology of myeloma but she felt very anxious and overwhelmed and I reassured her that we will readdress this at further follow-up visits. 2. Patient had a metastatic bone survey showing no areas of lytic disease or pathologic fractures. We discussed CRAB criteria for multiple myeloma diagnosisand that he meets criteria of R renal and A anemia, but not elevated calcium or bone disease (C and B). She specifically asked is stage of multiple myeloma andwe noted that he still will require beta-2 glycoprotein (ISS) but is most consistent with stage III. We are still awaiting his chromosomal abnormalities by fluorescence in situ hybridization and will readdress at next follow-up visitwith his final bone marrow biopsy results (this study was only performed 03/08/2020). 3. She wanted to know if his testing showed cancer elsewhere. We discussed that since metastatic bone survey showed more lytic areas I do not feel that F-18 PET is high priority but this may be ordered at some point to assess for any asymptomatic bony metastatic disease. 4. He has recently had elevated blood sugars and does not have a history of diabetes, but we discussed that with weekly steroids he should likely have additional insulin on his steroid days. I offered that this could be managed byhis primary physician Dr. Heath and he could be referred for diabetes management clinic. 5. We reiterated multiple times that his schedule may be variable. He will typically have a long infusion on Mondays with daratumumab but initially he willpresent twice weekly for Velcade injection on Mondays and . This will change during the course of his therapy and he should refer to his calendar. 6. We discussed not taking additional vitamins unless approved by nephrology. I also discussed potentially adding Revlimid and we will address at future visits if this is needed based on his follow-up labs ordered 04/02/2020. His medications may be filled either locally or with his prescription plan, but manyof these will be ordered by nephrology. He is to continue vitamin D2 as recommended by nephrology. Blood pressure medications will be regulated by primary care and nephrology. 7. We discussed concerning side effects, most commonly hyperglycemia, insomnia,risk of thrombosis (recently was diagnosed with left superficial thrombosis of the left upper extremity and additional heparin is given with his dialysis), andneuropathy with Velcade. Patients do not tend to have significant nausea or possible appetite (effects of dexamethasone increase his appetite). I cannot recommend medical marijuana and would discuss this with his pre coder whetherthis would interfere with dialysis. We will also follow closely for cytopenias and reviewed infectious precautions. He has a son from [place] who plans to visit on Thursday and we discussed COVID-19 testing appropriate social isolation protocols. 8. We discussed whether he was eligible for transplant and this will be evaluated based on his response and overall health in likely 3 to 4 months afterinitiation of therapy. We did not discuss autologous stem cell transplant in detail. We did discuss that although this is not curative therapy, many patients are controlled with medication over longer periods of time (often 5 to 6 years) with appropriate therapy. It is an aggressive cancer due to its significant infectious risk and association with renal failure. 9. Exercise may be performed as tolerated but should be done in moderation and likely we should wait a few weeks for more significant exercise given his recentdialysis and initiation of chemotherapy. I did not specifically address his diet but he may address this with our [facility] nutrition team. He will also receivechemotherapy class with our nurses in the infusion center. PRELIMINARY HISTORY (from initial consult 03/08/2020): This is a 76-year-old male who was transferred from [place] emergency room by [facility] due to critical potassium 8.7 with elevated creatinine 11.2 and BUN 82 on 03/04/2020. We do not have any recent blood work for comparison but he hadnormal creatinine in 2011. He was urgently treated for his hyperkalemia and dialysis was arranged emergently by nephrology team. He has now stabilized on dialysis and had extensive work-up for etiology of his acute renal failure with severe anemia felt to be due to anemia of renal insufficiency. Iron studies returned normal with ferritin 160, but B12 low at 84 and folate low normal at 5.2. He is receiving appropriate B12 repletion. The patient reports that he has had a prolonged period of fatigue up to a year and has decreased appetite with subjective weight loss. He denies any significant bone pain other than pain in his right shoulder and has no prior falls or recurrent back pain. He had a shoulder film showing labral pathology of the joint but no fracture or dislocation. Myeloma labs were sent showing M spike 3.6 g/dL with serum immunofixation showing IgG kappa light chain specificity. Serum IgG markedly elevated at 5312 and free kappa light chain 12,649.9 with normal free lambda light chain 11.94 free kappa/lambda ratio 1063. Hepatitis A, B, and C serologies were all negative and COVID-19 screening was negative. LORE, c-ANCA, p-ANCA, anti-GBM, and antimyeloperoxidase were all negative. Clinically the patient has multiple myeloma and I explained that we needed to proceed with bone marrow aspiration and biopsy to provide baseline for diagnosis and to expedite chemotherapy with an aggressive regimen to reduce his light chains. I will review information with him at noon today around the time of his bone marrow biopsy for combinationdaratumumab 16 mg/kg IV weekly, bortezomib 1.3 mg/kg subcu twice weekly, dexamethasone 40 mg weekly, and Revlimid 25 mg p.o. daily days 1 through 14 of each 21-day cycle. Revlimid will be ordered through a special pharmacy. We will schedule his infusions as an outpatient early next week on his nondialysis days. Written literature for these medications will be provided and he may signinformed consent so that we may order this regimen as an outpatient. The patient's is not with him today but has been treated by me for breast cancer in the past and had multiple questions. We would like to arrange a time for her to be available to ask questions and be present for chemo consent, possibly around noon today. This will need to be coordinated with nursing staffdue to COVID-19 visitor restriction policy. - Summary of Therapies Summary of Therapies: Cycle 1 day 1 03/12/2020: Daratumumab 16 mg/kg IV weekly, bortezomib 1.3 mg/kg subcu twice weekly, dexamethasone 40 mg weekly. 04/09/2020: Under direction of Dr. Hall, in early April we added Revlimid 5 mg every other day of each 21-day cycle with cycle 2 due to excellent response of kappa light chains. 04/26/2020: Malignant hematology eval for possible high-dose chemotherapy/autologous stem cell transplant. He was able to stop dialysis 04/24/2020. Given Velcade only (hold daratumumab) on 07/02/2020. 07/25/2020: Melphalan 100mg/m2 IV day 0 autologous stem cell transplant 07/25/2020at [facility]. 11/26/2020: Follow-up bone marrow aspiration and biopsy 10/18/2020 for MRD evaluation shows hypocellular marrow with 0.5% plasma cells, no clonal population by flow cytometry but 0.03% kappa light chain skewing. Started Revlimid 5 mg daily for maintenance therapy early October 2020. ROS Details: All systems reviewed & no additional complaints except as documented Subjective/ROS - Narrative: CONSTITUTIONAL: Improved fatigue since HD Melphalan/ASCT, negative for fever or night sweats. Post-transplant infections as per HPI, now resolved. HEAD AND NECK: Improvement of prior blurred vision since control of his diabetesmellitus. Negative for changes in hearing. Negative for mouth ulcers, nasal congestion and nasal drainage. PULMONARY: Negative for chest pain, cough and dyspnea. CARDIOVASCULAR: Negative for claudication and irregular heartbeat/palpitations. Resolved edema since diagnosis, now off dialysis. GASTROINTESTINAL: Negative for abdominal pain, constipation, diarrhea, nausea orvomiting. Improved appetite and 20 kg weight loss after starting dialysis, chemotherapy, and transplant for light chain nephropathy. 11/2020--returned to baseline weight pretransplant. GENITOURINARY: Negative for dysuria and hematuria. Improved urinary output, diagnosed in February 2020 with renal failure requiring dialysis--off dialysis 04/24/2020. Prior nephrolithiasis previously followed by Dr. Seals. ENDOCRINE: Negative for cold intolerance and heat intolerance. Improvement of prior hyperglycemia with home blood sugars in the 100-200s on supplemental insulin glargine. CENTRAL NERVOUS SYSTEM: Negative for gait disturbance and headache. No focal neurologic deficits or history of stroke. 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 PSYCHIATRIC: Negative for anxiety or depression. DERMATOLOGICAL: Positive for pruritus and rash as per HPI. Negative for suspicious skin lesions. MUSCULOSKELETAL: Resolved back pain and and thigh pain. Positive for leg crampsdue to neuropathy. No longer on ferrous sulfate post transplant. HEMATOLOGICAL: Negative for bleeding and easy bruising. Negative for history of transfusion (other than 1 unit packed red blood cells prior admission). Positive for left basilic vein thrombus on Doppler ultrasound 03/12/2020--no longer requires anticoagulation. ALLERGY: Negative for environmental allergies and food allergies. [facility] - History Attestation statement: The following information was validated with the patient. Source: Old Records Reviewed - Medical History Medical History: Medical History (Last Reviewed 02/27/21 @ 20:34 by Brook Huddleston MD) Apnea Arthritis Diabetes mellitus, type 2 Hyperlipidemia Hypertension Kidney stones Skin cancer - Family History Family History: Family History (Last Reviewed 02/27/21 @ 20:34 by Brook Huddleston MD) Sister Myocardial infarct Mother Myocardial infarct Father Skin cancer - Social History Smoking Status: Former smoker Tobacco Type: cigarettes Substance Use Type: None Home Medications & Allergies Allergies No Known Allergies Allergy (Verified 02/27/21 14:44) Home Medications famotidine 20 mg tablet 20 mg PO DAILY #30 tab 03/10/20 [Rx Confirmed 02/27/21] insulin glargine 100 unit/mL (3 mL) subcutaneous pen (Lantus Solostar U-100 Insulin) 12 unit SUBCUT DAILY 04/27/20 [History Confirmed 02/27/21] insulin lispro 100 unit/mL subcutaneous pen (Humalog KwikPen (U-100) Insulin) 6 - 16 unit SUBCUT DIRECTED 04/27/20 [History Confirmed 02/27/21] hydralazine 50 mg tablet 25 mg PO BID 07/02/20 [History Confirmed 02/27/21] atorvastatin 20 mg tablet 20 mg PO DAILY 10/15/20 [History Confirmed 02/27/21] cholecalciferol (vitamin D3) 50 mcg (2,000 unit) capsule (Vitamin D3) 50 mcg PO DAILY 10/15/20 [History Confirmed 02/27/21] furosemide 40 mg tablet 20 mg PO DAILY 10/15/20 [History Confirmed 02/27/21] gabapentin 100 mg tablet 100 mg PO DAILY PRN 10/15/20 [History Confirmed 02/27/21] loperamide 2 mg capsule 2 mg PO QID PRN 10/15/20 [History Confirmed 02/27/21] sulfamethoxazole 800 mg-trimethoprim 160 mg tablet (Bactrim DS) 1 tab PO BID 10/15/20 [History Confirmed 02/27/21] tramadol 50 mg tablet 50 mg PO DAILY PRN 10/15/20 [History Confirmed 02/27/21] aspirin 81 mg tablet,delayed release 81 mg PO DAILY 11/26/20 [History Confirmed 02/27/21] metformin 500 mg tablet 1,000 mg PO DAILY 11/26/20 [History Confirmed 02/27/21] acyclovir 400 mg tablet 400 mg PO BID 60 Days #120 tab 12/19/20 [Rx Confirmed 02/27/21] lenalidomide 5 mg capsule (Revlimid) 5 mg PO DAILY 28 Days #28 cap 02/13/21 [Rx Confirmed 02/27/21] potassium chloride 20 mEq tablet,extended release 20 meq PO DAILY #90 tab 02/26/21 [Rx Confirmed 02/27/21] Objective - Height/Weight Height/Weight: Height 5 ft 10 in Weight 93.44 kg BSA for Today's Weight 2.10 - Vital Signs Vital Signs: 02/27/21 14:45 Temperature 98.0 F Pulse Rate [Monitor] 78 Respiratory Rate 20 Blood Pressure [Left Arm] 153/73 H 02 Sat by Pulse Oximetry 78 L - Pain Right Hip Pain Intensity: 5 Generalized Pain Intensity: 1 Left Upper Arm Pain Intensity: 4 - Emotional Needs Assessment Emotional Needs Assessment: Emotional Needs Identified? No Physical Exam Narrative: CONSTITUTIONAL: The patient is in no acute distress. No longer appears fatigued. HEAD / FACE: Normocephalic. EYES: Pupils are equal and reactive to light. Conjunctivae and lids are benign in appearance. Ocular movement intact. EARS: Hearing grossly intact. NOSE / MOUTH / THROAT: Nose, mouth, tongue and oropharynx are benign in appearance. No signs of inflammation. NECK / THYROID: Neck is supple. Thyroid is symmetrical, without thyromegaly, masses or palpable nodules. LYMPHATIC: No palpable cervical, supraclavicular, axillary, or inguinal adenopathy. RESPIRATORY: Normal to inspection. Lungs clear to auscultation and percussion. No wheezing, rales, rhonchi or rubs. Normal effort. CARDIOVASCULAR: Regular rate and rhythm. No murmurs, gallops, or rubs. VASCULAR: Carotid, radial, femoral and pedal pulses present bilaterally. No bruits. ABDOMEN: Bowel sounds normoactive. Soft, nontender and non-distended. No hepatosplenomegaly. No masses. GENITOURINARY: No CVA tenderness. No suprapubic fullness or tenderness. No groinadenopathy. No evidence of hernias. INTEGUMENTARY: The skin is unremarkable. + bilateral antecubital mild rashes--few lesions over chest. No suspicious lesions BACK / SPINE: The back is nontender. No step-off deformity. No CVA tenderness. MUSCULOSKELETAL: Normal musculature, no joint deformities or abnormalities, normal range of motion for all four extremities. EXTREMITIES: No longer has bilateral lower extremity edema; no cyanosis or clubbing. No Vitor sign. NEUROLOGICAL: Alert and oriented. Cranial nerves intact. No gross motor deficits. Numbness bilateral feet due to neuropathy. PSYCHIATRIC: No anxiety or evidence of depression. - ECOG Performance Status ECOG Score: 1 Results - Labs Labs: Diagram of Most Recent CBC and CMP 02/20/21 11:25 02/20/21 11:25 Labs - Last 7 Days 02/20/21 11:25: Serum Total Protein 6.2, Albumin (Send Out) 3.4, Globulin (PEP) 2.8, Albumin/Globulin (PEP) 1.2, Ftkoz-9-Gjlemhwes 0.2, Mkahh-5-Oanmqgqig 0.9, Beta Globulins 0.9, Hzmg-7-Ialkiwjpbniux 2.3, Gamma Globulins 0.7, M-Anselmo Not observed, PEP Note , IgG 749, IgA 89, IgM 21, Serum Immunofixation , Free [place] LC, Quant 30.3 H, Free Lambda LC, Quant 16.7, Free [place]/Lambda Ratio 1.81 H 02/20/21 11:25: PHA Creatinine Clear 68.45, Sodium 134 L, Potassium 4.3, Chloride 103, Carbon Dioxide 21.5 L, BUN 14, Creatinine 1.04, Est GFR ( Amer) > 60, Est GFR (Non-Af Amer) > 60, Glucose 227 H, Calcium 8.9, Total Bilirubin 0.8, AST 23, ALT 27, Alkaline Phosphatase 94 H, Total Protein 6.1, Albumin 3.9, Globulin 2.2, Albumin/Globulin Ratio 1.8 - Impressions No new imaging for review. 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 He had marked elevation in IgG kappa on initial laboratory work-up for renal failure in February 2020. He has remained hemodynamically stable and I discussed in detail with the patient the pathophysiology of multiple myeloma and associated injury to kidneys, persistentanemia, bone disease, and potential hypercalcemia (we do not see hypercalcemia in this patient). He consented to inpatient bone marrow biopsy 03/08/2020 which was diagnostic for multiple myeloma--70% plasma cells without amyloid depositionidentified in small marrow specimen. Normal baseline skeletal survey. I reviewed pathophysiology of myeloma, results of bone marrow biopsy, skeletal survey, and myeloma labs with the patient and his . Patsy consented to begin first cycle Daratumumab, Velcade, and dexamethasone on03/12/2020--other than infusion reaction from first Daratumumab, improved with symptomatic therapy. I reviewed his case with Dr. Quique Hall of [facility]--added Revlimid 5mg qod following significant reduction of light chains in early April 2020. 05/07/2020: As per HPI, Angel and his met with Dr. Hall 04/26/2020 with preparation for likely high-dose chemotherapy/autologous peripheral stem cell transplant if he meets criteria based on cardiopulmonary work-up. He has had greater than 90%. The patient was able to discontinue hemodialysis on 04/24/2020 and has not had any recurrence of edema with now improved renal function, creatinine clearance now 53. --I will continue current therapy with further evaluation by Dr. Hall in 1 month for planning his HDC/autologous stem cell transplant. We will send repeatmyeloma labs (SPEP, IgG, kappa/lambda light chains) in 4 weeks with f/u visit with me the following week to review results as well as evaluation with Dr. aHll for possible stem cell transplant. 06/04/2020: Tolerating chemotherapy well other than increasing neuropathy of hands and feet. Dose reduced Velcade by 25% next cycle. Added daily ferrous sulfate. --He was referred to diabetes management clinic and sees Dr. Heath with regularfollow-up by Dr. Rahman since he is off dialysis. Diabetes control improved. 07/02/2020: Last dose of Velcade today. Neuropathy is stable and pain is well controlled. He will have COVID-19 test on 07/11/2020 for planned admission for stem cell collection on 07/17/2020 then high-dose melphalan followed by peripheral blood stem cell transplant day 0 scheduled 07/23/2020. His next follow-up with me will be in about 4 months after he is completed day 100 transplant follow-up. He may return sooner as needed. 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 Melphalan 100mg/m2 + ASCT Day 0 07/25/2020. 11/26/2020: Followup of [facility] end of therapy bone marrow biopsy 10/18/2020--no minimal residual disease. Started Revlimid maintenance 5mg daily in early October2020. 02/27/2021: No new symptoms other than rash. Slow improvement of neuropathy--titrating off gabapentin with palliative medicine. Benadryl for rash. Continue Revlimid 5mg daily. He will be due for first post transplant vaccines soone--will check schedule with . Next followup with me in 3 months for exam and f/u myeloma labs. Extended nephrology followup to annual. May return sooner if new issues arise. F/u skeletal survey 1 yr s/p transplant. This is a moderate complexity visit over 30 minutes for symptom and lab review, and coordination of care with tertiary malignant hematology, and ongoing counseling treatment course with patient and his . (2) Chemotherapy-induced peripheral neuropathy 25% dose reduction Velcade prior to stem cell transplant due to reports of increased pain from neuropathy in fingers and feet. Worsening symptoms after transplant, referred back to palliative medicine for further management. Gabapentin titrated from 400mg/300mg/400mg to now 200/100/200 each day--will continue to followup with palliative medicine. (3) Iron deficiency anemia Prior leg cramps with low iron saturation. Ferritin inappropriately normal due to inflammation from myeloma. Daily oral iron added due to symptomatic leg cramps and persistent anemia. Recheck iron studies were not ordered--december send with 3 month followup. No longer taking oral iron--mild normocytic anemia post transplant continues to improve. (4) History of hemodialysis Initiated inpatient hemodialysis 02/2020, then transitioned to outpatient hemodialysis 3 times weekly Thursday//Thursday schedule. Chemotherapy given Thursday/. 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 He was actually able to stop dialysis within 2 months with the last session 04/24/2020 as noted above. High-dose chemotherapy with autologous stem cell transplant was offered by Dr. Hall met at [facility] based on his good physiologic health despite his advanced age if cardiopulmonary work-up for this is suitable. For now we will give last dose Velcade (with 25% DR for neuropathy), dexamethasone today--holding daratumumab per Dr. Hall's request. Now > 6 months after Melphalan 100mg/m2 + autologous PBSCT in early July given his significant response to initial myeloma directed therapy. Continued f/u with nephrology now annual post transplant due to normal renal function. (5) Steroid-induced diabetes mellitus Qualifiers: Encounter type: subsequent encounter Qualified Code(s): E09.9 - Drug or chemical induced diabetes mellitus without complications; T38.0X5D - Adverse effect of glucocorticoids and synthetic analogues, subsequent encounter Patsy had an excellent response of light chains but was noted to have significant hyperglycemia 300-500 fasting blood sugars. He was referred to diabetes management clinic with addition of insulin therapy that has significantly improved control of his blood sugars. Patient also had remarked on some blurred vision that improved with control of blood sugars. Continue follow-up of blood sugars during admission for transplant in early July. Improving peripheral neuropathy complaints in bilateral hands and feet after 25%dose reduction of Velcade and worsening post transplant. Resumed low dose metformin and titrating down insulin--directed by his primary physician. (6) B12 deficiency Patient was found to have B12 deficiency and was been placed on daily B12 prior to hospital discharge. We continued weekly IM B12 for 8 weeks with his myeloma regimen. Hemoglobin is improved on Aranesp and weekly B12, then changed to monthly maintenance therapy. He has not required further blood transfusions since 03/15/2020. Follow- up methylmalonic acid on 04/30/2020 was normal showing adequate replacement. He will continue monthly IM B12 and weekly vitamin D2 therapy 50,000 units orally for low 25 hydroxy vitamin D stores. He may take supplemental calcium once daily. (7) Rash and nonspecific skin eruption May be due to higher dose gabapentin--will continue titrating off and symptomatic therapy. (8) Encounter for chemotherapy management Started cycle 1 day 1 03/12/2020: Daratumumab 16 mg/kg IV weekly, bortezomib 1.3 mg/kg subcu twice weekly, dexamethasone 40 mg weekly. We added Revlimid 5 mg every other day of each 21-day cycle with cycle 2 due to excellent reduction of kappa light chains (recommended by Dr. Hall malignanthematology). 06/04/2020: 25% DR Bortezumab (100% all other meds) due to worsening neuropathy. Last dose of 4009 07/02/2020) and holding daratumumab per request of Dr. Hall. 07/25/2020: Melphalan 100mg/m2 + autologous PBSCT 10/18/2020: Started Revlimid maintenance after bone marrow biopsy negative for MRD. - Chemo Plan Chemo Plan (Dose, Rate, Freq): 07/25/2020: Melphalan 100mg/m2 + autologous PBSCT-->10/2020 Revlimid 5mg daily maintenance after bone marrow biopsy. Goal of Treatment: Control - Time with Patient Time Spent with Patient (Follow Up Visit): 35 minutes Coordination of Care & Counseling Time: Greater than 50% of time spent with patient was for coordination of care (as documented) and [id number] counseling of patient and/or family. Dictated By: Brook Huddleston MD DD/ [id number] Signed By: <Electronically signed by MD Brook Huddleston> 02/27/212051 [facility] Work Phone: [phone]) 932-301704-12-2021 Progress note Author Brook Huddleston [facility] November 26, 2020 6:26pm Note Date/Time November 26, 2020 11: 21am [facility] [place] [id number] Hem/Onc Follow Up Note - OP Signed Patient: Patsy Mills MR#: [id number] : 1945 Acct:[id number] Age/Sex: 75 / M Type: REG RCR Copies to: MD Helen Jaramillo MD~ Subjective Date/Time of Service: Date of Service: 11/26/2020 Time of Service: 11:20 Chief Complaint: Patient is here today for 1 month follow up visit for 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 He had bone biopsy and labs done at in [place]. No new concerns HPI: 11/26/2020: Patsy is here for followup after D86 bone marrow biopsy at [facility] on 10/18/2020. No evidence of MRD--0.5% plasma cells andno clonal plasma cells suggestive of residual myeloma. Tolerating maintenance Revlimid 5mg daily well. No bone pain and normal renal function--Dr. Vincent hasreleased for annual nephrology followup. He is fully vaccinated for [id number] and I contacted Dr. Hall for coordination of post transplant vaccines. Stable neuropathy with gabapentin escalated to 400mg am, 300mg midday, 400mg pm. Continues followup with palliative medicine. He has phone f/u with Dr. Hall later this week. I will f/u with myeloma labs in 3 months--CBC, CMP, SPEP, quant IGs, kappa/lambda light chains and beta2 microglobulin. He and his are in agreement with this plan. 10/15/2020: Patsy is here with his for transfer of care after Melphalan 100mg/m2 autologous stem cell transplant D0 = 07/25/2021. He is now D+83 and oneweek ago, he saw Dr. Hall for survivorship visit. We reviewed his post transplant course and prior infections have now resolved. Blood counts have recovered and renal function at prior baseline. He has persistent neuropathy ongabapentin 200mg am, 100mg noon, 200mg pm. I'm setting him up for palliative consultation (previously followed by [facility]). He has a followup bone marrow biopsy scheduled with Dr. Hall in 3 days to document remission. I will discuss with him the plan after bone marrow biopsy--I briefly discussed Revlimidmaintenance with Mr. Mills and his . I will contact patient after bone marrow results to confirm plan with Dr. Hall and f/u with him in about 6 weeks with myeloma labs. 07/02/2020: Patsy has completed all of his pretransplant evaluation at [facility] including cardiology visit 11 9 which showed ejection fraction 60%. I have contacted Dr. Hall who noted that today will be his last day of Velcade and we will hold his daratumumab. He was to have a COVID-19 test on 07/11/2020 for planned stem cell collection 07/17 and transplant on 07/23. I clarified with the staff at [facility] this this may be performed at [facility] and forwarded to them. 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 His pain mainly in hips is about 3 out of 10 and controlled with Percocet. His next follow-up with me willjoliey be in about 4 months when he is post transplant although I am happy to see him sooner if new issues arise in his post transplant course that need to be managed closer to home. His most recent labs reveal improving hemoglobin (11.5), stable renal function (creatinine 1.35), normal calcium, and appropriateresponse of kappa light chain to now normal 18 with K/L ratio 2.02. 06/04/2020: Met with Dr. Hall on 05/24/2020 to discuss planning for high-dose chemotherapy peripheral blood stem cell transplant. He has now hemodialysis independent after daratumumab, dexamethasone, and Velcade with addition of Revlimid. Today he reports that he has had increased neuropathy symptoms in hisbilateral hands and feet with mild interference with activity (grade 2). We discussed a 25% dose reduction of Velcade on day 1, day 4, day 8, day 11 with current cycle of DVdR. He has some leg cramps at night, with normal magnesium, but low iron saturation noted--will start daily iron for symptoms. Otherwise heis tolerating therapy well and creatinine is now normal. He was given educationfor the transplant course and he is scheduled in late June after Thanksgiving to proceed with stem cell collection and transplant. I will communicate with Dr. Hall regarding end of therapy and in 1 month I will see him with follow-up myeloma studies. No other new concerns today. 05/07/2020: Patsy is here for 1 month follow-up. Outpatient hemodialysis was stopped after 04/24/2020 due to excellent response. He was evaluated by Dr. Small at [facility] on 04/26/2020. Angel and his note that Dr. Hall felt that he was physiologically about 8 years younger than his chronologic age and would likely be transplant eligible if pretransplant work-updeems this feasible. He recommended continuing current daratumumab and Velcade with low-dose Revlimid. He will reevaluate patient in 1 month and likely plan admission for stem cell collection, then high-dose chemotherapy/autologous stem cell transplantation in June or July. The patient's was concerned that she did not understand much of the pretransplant teaching and I explained to her and Don the pathophysiology of plasma cells, light chains, his improving trend of renal function, goal of 90% kappa/lambda ratio reduction prior to transplant. We also refilled Revlimid 5 mg every other day, weekly vitamin D, and I am giving him a trial of tramadol 50 mg every 12 hours as Tylenol is not effective for his pain and we are avoiding NSAIDs and additional aspirin. He otherwise has no toxicities of chemotherapy. He sees Dr. Heath for follow-up tomorrow and maintains insulin with stabilization of his blood sugars following with diabetes management clinic. I will see him in follow-up with myeloma labs in 1 month plan end of therapy prior to transplant. 04/09/2020: Here for one month f/u with his . He continues outpatient hemodialysis on Thursday//Saturdays. He notes fatigue, but generalized edema remarkably improved with no significant pain. I reviewed his M-spike, IgGand kappa light chains with K/L ratio that has remarkably improved (>90% reduction past month). [place] light chains decreased from 12,000 to 42. Only concern is significant hyperglycemia with dexamethasone. 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 I will coordinate evaluation by Dr. Quique Hall for HDC/autologous stem cell transplantevaluation and hold on adding Revlimid since significant response of light chains noted. I contacted Dr. Rahman of nephrology to consider reducing hemodialysis days to twice weekly. I will send myeloma labs in about 4 weeks, have him see Dr. Hall and f/u with me the following week to review plan and determine whether plan for HDC/stem cell transplant. 03/14/2020: Patient presents with his today after initiating both outpatienthemodialysis on Thursday//Saturdays and initial cycle of daratumumab, bortezomib, dexamethasone with potential addition of Revlimid after 1 month if less than optimal response. He received his first cycle of combination chemotherapy 03/12/2020. --Patient tolerated initial daratumumab infusion reasonably well with brief infusion reaction (dizziness and mild wheezing) that was treated with diphenhydramine, steroids, albuterol, and Demerol for rigors. He completed remaining infusion in an outpatient bed on the inpatient [place] Thursday and we anticipate further weekly daratumumab infusions as an outpatient. --Patient was seen at dialysis today and noted to have hemoglobin 6.8. He will receive 1 unit of packed red blood cells prior to Velcade today for scheduled tomorrow. His was unable to be present at the hospital at time of diagnosis and his initial bone marrow biopsy was performed on 03/08/2020. She requests evaluation with him today for extensive questions regarding his care. She reported her session and requested a copy of this progress note following our visit today. 1. She asked if all the tests at the hospital returned. We discussed the teststhat are used to follow-up myeloma including his elevated IgG, elevated free kappa light chains, and elevated M spike. We discussed in detail the pathophysiology of myeloma but she felt very anxious and overwhelmed and I reassured her that we will readdress this at further follow-up visits. 2. Patient had a metastatic bone survey showing no areas of lytic disease or pathologic fractures. We discussed CRAB criteria for multiple myeloma diagnosisand that he meets criteria of R renal and A anemia, but not elevated calcium or bone disease (C and B). She specifically asked is stage of multiple myeloma andwe noted that he still will require beta-2 glycoprotein (ISS) but is most consistent with stage III. We are still awaiting his chromosomal abnormalities by fluorescence in situ hybridization and will readdress at next follow-up visitwith his final bone marrow biopsy results (this study was only performed 03/08/2020). 3. She wanted to know if his testing showed cancer elsewhere. We discussed that since metastatic bone survey showed more lytic areas I do not feel that F-18 PET is high priority but this may be ordered at some point to assess for any asymptomatic bony metastatic disease. 4. He has recently had elevated blood sugars and does not have a history of diabetes, but we discussed that with weekly steroids he should likely have additional insulin on his steroid days. I offered that this could be managed byhis primary physician Dr. Heath and he could be referred for diabetes management clinic. 5. We reiterated multiple times that his schedule may be variable. He will typically have a long infusion on Mondays with daratumumab but initially he willpresent twice weekly for Velcade injection on Mondays and . This will change during the course of his therapy and he should refer to his calendar. 6. We discussed not taking additional vitamins unless approved by nephrology. I also discussed potentially adding Revlimid and we will address at future visits if this is needed based on his follow-up labs ordered 04/02/2020. His medications may be filled either locally or with his prescription plan, but manyof these will be ordered by nephrology. He is to continue vitamin D2 as recommended by nephrology. Blood pressure medications will be regulated by primary care and nephrology. 7. We discussed concerning side effects, most commonly hyperglycemia, insomnia,risk of thrombosis (recently was diagnosed with left superficial thrombosis of the left upper extremity and additional heparin is given with his dialysis), andneuropathy with Velcade. Patients do not tend to have significant nausea or possible appetite (effects of dexamethasone increase his appetite). I cannot recommend medical marijuana and would discuss this with his pre coder whetherthis would interfere with dialysis. We will also follow closely for cytopenias and reviewed infectious precautions. He has a son from [place] who plans to visit on Thursday and we discussed COVID-19 testing appropriate social isolation protocols. 8. We discussed whether he was eligible for transplant and this will be evaluated based on his response and overall health in likely 3 to 4 months afterinitiation of therapy. We did not discuss autologous stem cell transplant in detail. We did discuss that although this is not curative therapy, many patients are controlled with medication over longer periods of time (often 5 to 6 years) with appropriate therapy. It is an aggressive cancer due to its significant infectious risk and association with renal failure. 9. Exercise may be performed as tolerated but should be done in moderation and likely we should wait a few weeks for more significant exercise given his recentdialysis and initiation of chemotherapy. I did not specifically address his diet but he may address this with our [facility] nutrition team. He will also receivechemotherapy class with our nurses in the infusion center. PRELIMINARY HISTORY (from initial consult 03/08/2020): This is a 75-year-old male who was transferred from [place] emergency room by [facility] due to critical potassium 8.7 with elevated creatinine 11.2 and BUN 82 on 03/04/2020. We do not have any recent blood work for comparison but he hadnormal creatinine in 2012. He was urgently treated for his hyperkalemia and dialysis was arranged emergently by nephrology team. He has now stabilized on dialysis and had extensive work-up for etiology of his acute renal failure with severe anemia felt to be due to anemia of renal insufficiency. Iron studies returned normal with ferritin 160, but B12 low at 84 and folate low normal at 5.2. He is receiving appropriate B12 repletion. The patient reports that he has had a prolonged period of fatigue up to a year and has decreased appetite with subjective weight loss. He denies any significant bone pain other than pain in his right shoulder and has no prior falls or recurrent back pain. He had a shoulder film showing labral pathology of the joint but no fracture or dislocation. Myeloma labs were sent showing M spike 3.6 g/dL with serum immunofixation showing IgG kappa light chain specificity. Serum IgG markedly elevated at 5312 and free kappa light chain 12,649.9 with normal free lambda light chain 11.94 free kappa/lambda ratio 1063. Hepatitis A, B, and C serologies were all negative and COVID-19 screening was negative. LORE, c-ANCA, p-ANCA, anti-GBM, and antimyeloperoxidase were all negative. Clinically the patient has multiple myeloma and I explained that we needed to proceed with bone marrow aspiration and biopsy to provide baseline for diagnosis and to expedite chemotherapy with an aggressive regimen to reduce his light chains. I will review information with him at noon today around the time of his bone marrow biopsy for combinationdaratumumab 16 mg/kg IV weekly, bortezomib 1.3 mg/kg subcu twice weekly, dexamethasone 40 mg weekly, and Revlimid 25 mg p.o. daily days 1 through 14 of each 21-day cycle. Revlimid will be ordered through a special pharmacy. We will schedule his infusions as an outpatient early next week on his nondialysis days. Written literature for these medications will be provided and he may signinformed consent so that we may order this regimen as an outpatient. The patient's is not with him today but has been treated by me for breast cancer in the past and had multiple questions. We would like to arrange a time for her to be available to ask questions and be present for chemo consent, possibly around noon today. This will need to be coordinated with nursing staffdue to [facility]-19 visitor restriction policy. - Summary of Therapies Summary of Therapies: Cycle 1 day 1 03/12/2020: Daratumumab 16 mg/kg IV weekly, bortezomib 1.3 mg/kg subcu twice weekly, dexamethasone 40 mg weekly. 04/09/2020: Under direction of Dr. Hall, in early April we added Revlimid 5 mg every other day of each 21-day cycle with cycle 2 due to excellent response of kappa light chains. 04/26/2020: Malignant hematology eval for possible high-dose chemotherapy/autologous stem cell transplant. He was able to stop dialysis 04/24/2020. Given Velcade only (hold daratumumab) on 07/02/2020. 07/25/2020: Melphalan 100mg/m2 IV day 0 autologous stem cell transplant 07/25/2020at [facility]. 11/26/2020: Follow-up bone marrow aspiration and biopsy 10/18/2020 for MRD evaluation shows hypocellular marrow with 0.5% plasma cells, no clonal population by flow cytometry but 0.03% kappa light chain skewing. Started Revlimid 5 mg daily for maintenance therapy early October 2020. ROS Details: All systems reviewed & no additional complaints except as documented Subjective/ROS - Narrative: CONSTITUTIONAL: Positive for fatigue (improved since HD Melphalan/ASCT), negative for fever or night sweats. Post-transplant infections as per HPI, now resolved. HEAD AND NECK: Improvement of prior blurred vision since control of his diabetesmellitus. Negative for changes in hearing. Negative for mouth ulcers, nasal congestion and nasal drainage. PULMONARY: Negative for chest pain, cough and dyspnea. CARDIOVASCULAR: Negative for claudication and irregular heartbeat/palpitations. Resolved edema since diagnosis, now off dialysis. GASTROINTESTINAL: Negative for abdominal pain, constipation, diarrhea, nausea orvomiting. Improved appetite and 20 kg weight loss after starting dialysis, chemotherapy, and transplant for light chain nephropathy. Now 11/2020--returned to baseline weight pretransplant. GENITOURINARY: Negative for dysuria and hematuria. Patient now with improved urinary output, diagnosed in February 2020 with renal failure requiring dialysis--off dialysis 04/24/2020. Prior nephrolithiasis previously followed by Dr. Seals. ENDOCRINE: Negative for cold intolerance and heat intolerance. Improvement of prior hyperglycemia with home blood sugars in the 100-200s on supplemental insulin glargine. CENTRAL NERVOUS SYSTEM: Negative for gait disturbance and headache. No focal neurologic deficits or history of stroke. Positive for painful sensory neuropathy in legs, worse after transplant--titrating up gabapentin, followed bypalliative medicine. PSYCHIATRIC: Negative for anxiety or depression. DERMATOLOGICAL: Negative for pruritus and rash. Negative for suspicious skin lesions. MUSCULOSKELETAL: Resolved back pain and and thigh pain. Positive for leg crampsdue to neuropathy. No longer on ferrous sulfate post transplant. HEMATOLOGICAL: Negative for bleeding and easy bruising. Negative for history of transfusion (other than 1 unit packed red blood cells prior admission). Positive for left basilic vein thrombus on Doppler ultrasound 03/12/2020--no longer requires anticoagulation. ALLERGY: Negative for environmental allergies and food allergies. [facility] - History Attestation statement: The following information was validated with the patient. Source: Old Records Reviewed - Medical History Medical History: Medical History (Last Reviewed 11/26/20 @ 18:04 by Brook Huddleston MD) Apnea Arthritis Diabetes mellitus, type 2 Hyperlipidemia Hypertension Kidney stones Skin cancer - Family History Family History: Family History (Last Reviewed 11/26/20 @ 18:04 by Brook Huddleston MD) Sister Myocardial infarct Mother Myocardial infarct Father Skin cancer - Social History Smoking Status: Former smoker Tobacco Type: cigarettes Substance Use Type: None Home Medications & Allergies Allergies No Known Allergies Allergy (Verified 11/26/20 11:15) Home Medications famotidine 20 mg PO DAILY #30 tab 03/10/20 [Rx Confirmed 11/26/20] zolpidem [Ambien] 5 mg PO QHS 20 Days #20 tab 03/11/20 [Rx Confirmed 11/26/20] acetaminophen [Tylenol] 650 mg PO DAILY PRN 04/27/20 [History Confirmed 11/26/20] insulin glargine [Lantus Solostar U-100 Insulin] 12 unit SUBCUT DAILY 04/27/20 [History Confirmed 11/26/20] insulin lispro [Humalog KwikPen Insulin] 6 - 16 unit SUBCUT DIRECTED 04/27/20[History Confirmed 11/26/20] hydralazine 25 mg PO BID 07/02/20 [History Confirmed 11/26/20] acyclovir 400 mg PO BID 10/15/20 [History Confirmed 11/26/20] atorvastatin 20 mg PO DAILY 10/15/20 [History Confirmed 11/26/20] cholecalciferol (vitamin D3) [Vitamin D3] 50 mcg PO DAILY 10/15/20 [History Confirmed 11/26/20] furosemide 20 mg PO DAILY 10/15/20 [History Confirmed 11/26/20] gabapentin 100 mg PO DAILY 10/15/20 [History Confirmed 11/26/20] loperamide [Imodium] 2 mg PO QID PRN 10/15/20 [History Confirmed 11/26/20] potassium chloride 20 meq PO DAILY 10/15/20 [History Confirmed 11/26/20] sulfamethoxazole-trimethoprim [Bactrim DS] 1 tab PO BID 10/15/20 [History Confirmed 11/26/20] tramadol 50 mg PO DAILY PRN 10/15/20 [History Confirmed 11/26/20] lenalidomide [Revlimid] 5 mg PO DAILY 28 Days #28 cap 11/20/20 [Rx Confirmed 11/26/20] aspirin [Aspir-81] 81 mg PO DAILY 11/26/20 [History Confirmed 11/26/20] metformin 500 mg PO DAILY 11/26/20 [History Confirmed 11/26/20] Objective - Height/Weight Height/Weight: Height 5 ft 10 in Weight 90.718 kg BSA for Today's Weight 2.10 - Vital Signs Vital Signs: 11/26/20 11:16 Temperature 97.3 F L Pulse Rate [Monitor] 82 Respiratory Rate 20 Blood Pressure [Left Arm] 155/64 H 02 Sat by Pulse Oximetry 99 - Pain Right Hip Pain Intensity: 5 Generalized Pain Intensity: 1 Left Upper Arm Pain Intensity: 4 - Emotional Needs Assessment Emotional Needs Assessment: Emotional Needs Identified? No Physical Exam Narrative: CONSTITUTIONAL: The patient is in no acute distress. No longer appears fatigued. HEAD / FACE: Normocephalic. EYES: Pupils are equal and reactive to light. Conjunctivae and lids are benign in appearance. Ocular movement intact. EARS: Hearing grossly intact. NOSE / MOUTH / THROAT: Nose, mouth, tongue and oropharynx are benign in appearance. No signs of inflammation. NECK / THYROID: Neck is supple. Thyroid is symmetrical, without thyromegaly, masses or palpable nodules. LYMPHATIC: No palpable cervical, supraclavicular, axillary, or inguinal adenopathy. RESPIRATORY: Normal to inspection. Lungs clear to auscultation and percussion. No wheezing, rales, rhonchi or rubs. Normal effort. CARDIOVASCULAR: Regular rate and rhythm. No murmurs, gallops, or rubs. VASCULAR: Carotid, radial, femoral and pedal pulses present bilaterally. No bruits. ABDOMEN: Bowel sounds normoactive. Soft, nontender and non-distended. No hepatosplenomegaly. No masses. GENITOURINARY: No CVA tenderness. No suprapubic fullness or tenderness. No groinadenopathy. No evidence of hernias. INTEGUMENTARY: The skin is unremarkable. No rashes. No suspicious lesions BACK / SPINE: The back is nontender. No step-off deformity. No CVA tenderness. MUSCULOSKELETAL: Normal musculature, no joint deformities or abnormalities, normal range of motion for all four extremities. EXTREMITIES: No longer has bilateral lower extremity edema; no cyanosis or clubbing. No Vitor sign. NEUROLOGICAL: Alert and oriented. Cranial nerves intact. No gross motor deficits. Numbness bilateral feet due to neuropathy. PSYCHIATRIC: No anxiety or evidence of depression. - ECOG Performance Status ECOG Score: 1 Results - Labs Labs: Diagram of Most Recent CBC and CMP 10/08/20 10:02 10/08/20 10:02 Outside Labs: 10/18/2020 ([facility]): WBC 6400, Hg 11.8, Hct 35.4, Platelets 177,000; MCV 103, ANC 4810 Na 136, K 4.4, BUN 18, Creat 0.89, Glu 190, Ca 9.8, Alb 4.3 TB 0.4, AST 23, ALT 27, AP 90 - Impressions No new imaging for review. - Other Results Results/Comments: 10/18/2020 bone marrow aspirate and biopsy without MRD at [facility]. 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 He has marked elevation in IgG kappa on initial laboratory work-up for renal failure in February 2020. He has remained hemodynamically stable and I discussed in detail with the patient the pathophysiology of multiple myeloma and associated injury to kidneys, persistentanemia, bone disease, and potential hypercalcemia (we do not see hypercalcemia in this patient). He consented to inpatient bone marrow biopsy 03/08/2020 which was diagnostic for multiple myeloma--70% plasma cells without amyloid depositionidentified in small marrow specimen. Normal baseline skeletal survey. I reviewed pathophysiology of myeloma, results of bone marrow biopsy, skeletal survey, and myeloma labs with the patient and his . Patsy consented to begin first cycle Daratumumab, Velcade, and dexamethasone on03/12/2020--other than infusion reaction from first Daratumumab, improved with symptomatic therapy. I reviewed his case with Dr. Quique Hall of [facility]--we added Revlimid 5mg every other day following significant reduction of light chains--this was started in early April. 05/07/2020: As per HPI, Angel and his met with Dr. Hall 04/26/2020 with preparation for likely high-dose chemotherapy/autologous peripheral stem cell transplant if he meets criteria based on cardiopulmonary work-up. He has had greater than 90%. The patient was able to discontinue hemodialysis on 04/24/2020 and has not had any recurrence of edema with now improved renal function, creatinine clearance now 53. --I will continue current therapy with further evaluation by Dr. Hall in 1 month for planning his HDC/autologous stem cell transplant. We will send repeatmyeloma labs (SPEP, IgG, kappa/lambda light chains) in 4 weeks with f/u visit with me the following week to review results as well as evaluation with Dr. Hall for possible stem cell transplant. 06/04/2020: Tolerating chemotherapy well other than increasing neuropathy of hands and feet. I will dose reduce Velcade by 25% next cycle. Likely hold therapy after mid Jun for planned stem cell harvest and transplant planning. I will contact Dr. Hall for planned timing. F/u with me in one month. Add dailyferrous sulfate. --He was referred to diabetes management clinic and sees Dr. Heath with regularfollow-up by Dr. Rahman since he is off dialysis. Diabetes control improved. 07/02/2020: Last dose of Velcade today. Neuropathy is stable and pain is well controlled. He will have COVID-19 test on 07/11/2020 for planned admission for stem cell collection on 07/17/2020 then high-dose melphalan followed by peripheral blood stem cell transplant day 0 scheduled 07/23/2020. His next follow-up with me will be in about 4 months after he is completed day 100 transplant follow-up. He may return sooner as needed. 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 Melphalan 100mg/m2 + ASCT Day 0 07/25/2020. 11/26/2020: Followup of [facility] end of therapy bone marrow biopsy 10/18/2020--no minimal residual disease. Started Revlimid maintenance 5mg daily in early October2020. He will be due for first post transplant vaccines in about 6 months. Next followup with me in 3 months for exam and f/u myeloma labs. Titrating up gabapentin by palliative medicine for ongoing management of painful neuropathy. Extended nephrology followup to annual. May return sooner if new issues arise. F/u skeletal survey 1 yr s/p transplant. This is a moderate complexity visit over 30 minutes for symptom review, bone marrow biopsy review, and coordination of care with tertiary malignant hematology, and ongoing counseling treatment course and surveillance with patient and his . (2) Chemotherapy-induced peripheral neuropathy 25% dose reduction Velcade prior to stem cell transplant due to reports of increased pain from neuropathy in fingers and feet. Worsening symptoms after transplant, referred back to palliative medicine for further management. Gabapentin now titrated to 400mg/300mg/400mg each day--will continue to followupwith palliative medicine. (3) Iron deficiency anemia Prior leg cramps with low iron saturation. Ferritin inappropriately normal due to inflammation from myeloma. Daily oral iron added due to symptomatic leg cramps and persistent anemia. Recheck iron studies were not ordered--may send with 3 month followup. No longer taking oral iron--mild macrocytic anemia post transplant. (4) History of hemodialysis Initiated inpatient hemodialysis 02/2020, then transitioned to outpatient hemodialysis 3 times weekly Thursday//Thursday schedule. Chemotherapy given Thursday/. 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 He was actually able to stop dialysis within 2 months with the last session 04/24/2020 as noted above. High-dose chemotherapy with autologous stem cell transplant was offered by Dr. Hall met at [facility] based on his good physiologic health despite his advanced age if cardiopulmonary work-up for this is suitable. For now we will give last dose Velcade (with 25% DR for neuropathy), dexamethasone today--holding daratumumab per Dr. Hall's request. Now D+126 after Melphalan 100mg/m2 + autologous PBSCT in early July given his significant response to initial myeloma directed therapy. Continued f/u withnephrology now annual post transplant due to normal renal function. (5) Steroid-induced diabetes mellitus Qualifiers: Encounter type: subsequent encounter Qualified Code(s): E09.9 - Drug or chemical induced diabetes mellitus without complications; T38.0X5D - Adverse effect of glucocorticoids and synthetic analogues, subsequent encounter Patsy had an excellent response of light chains but was noted to have significant hyperglycemia 300-500 fasting blood sugars. He was referred to diabetes management clinic with addition of insulin therapy that has significantly improved control of his blood sugars. Patient also had remarked on some blurred vision that improved with control of blood sugars. Continue follow-up of blood sugars during admission for transplant in early July. Increased peripheral neuropathy complaints in bilateral hands and feet after 25%dose reduction of Velcade and worsening post transplant. Now resumed low dose metformin and titrating down insulin--directed by his primary physician. (6) B12 deficiency Patient was found to have B12 deficiency and was been placed on daily B12 prior to hospital discharge. We continued weekly IM B12 for 8 weeks with his myeloma regimen. Hemoglobin is improved on Aranesp and weekly B12, then changed to monthly maintenance therapy. He has not required further blood transfusions since 03/15/2020. Follow- up methylmalonic acid on 04/30/2020 was normal showing adequate replacement. He will continue monthly IM B12 and weekly vitamin D2 therapy 50,000 units orally for low 25 hydroxy vitamin D stores. He may take supplemental calcium once daily. (7) Encounter for chemotherapy management Started cycle 1 day 1 03/12/2020: Daratumumab 16 mg/kg IV weekly, bortezomib 1.3 mg/kg subcu twice weekly, dexamethasone 40 mg weekly. We added Revlimid 5 mg every other day of each 21-day cycle with cycle 2 due to excellent reduction of kappa light chains (recommended by Dr. Hall malignanthematology). 06/04/2020: 25% Bortezumab (100% all other meds) due to worsening neuropathy. Last dose of 4009 07/02/2020) and holding daratumumab per request of Dr. Hall. 07/25/2020: Melphalan 100mg/m2 + autologous PBSCT 10/18/2020: Started Revlimid maintenance after bone marrow biopsy negative for MRD. - Chemo Plan Chemo Plan (Dose, Rate, Freq): 07/25/2020: Melphalan 100mg/m2 + autologous PBSCT-->10/2020 Revlimid 5mg daily maintenance after bone marrow biopsy. Goal of Treatment: Control - Time with Patient Time Spent with Patient (Follow Up Visit): 35 minutes Coordination of Care & Counseling Time: Greater than 50% of time spent with patient was for coordination of care (as documented) and [id number] counseling of patient and/or family. Dictated By: Brook Huddleston MD DD/ 1120 Signed By: <Electronically signed by MD Brook Huddleston> 11/26/20 [address] [facility] Work Phone: [phone] 826-405004-12-2021 Progress note Author Brook Huddleston [facility] November 26, 2020 6:26pm Note Date/Time November 26, 2020 11: 21am [facility] at [address] [address] Hem/Onc Follow Up Note - OP Signed Patient: Patsy Mills MR#: [id number] : 1945 Acct:[id number] Age/Sex: 75 / M Type: REG RCR Copies to: MD Helen Jaramillo MD~ Subjective Date/Time of Service: Date of Service: 11/26/2020 Time of Service: 11:20 Chief Complaint: Patient is here today for 1 month follow up visit for 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 He had bone biopsy and labs done at in [place]. No new concerns HPI: 11/26/2020: Patsy is here for followup after D86 bone marrow biopsy at [facility] on 10/18/2020. No evidence of MRD--0.5% plasma cells andno clonal plasma cells suggestive of residual myeloma. Tolerating maintenance Revlimid 5mg daily well. No bone pain and normal renal function--Dr. Vincent hasreleased for annual nephrology followup. He is fully vaccinated for and I contacted Dr. Hall for coordination of post transplant vaccines. Stable neuropathy with gabapentin escalated to 400mg am, 300mg midday, 400mg pm. Continues followup with palliative medicine. He has phone f/u with Dr. Hall later this week. I will f/u with myeloma labs in 3 months--CBC, CMP, SPEP, quant IGs, kappa/lambda light chains and beta2 microglobulin. He and his are in agreement with this plan. 10/15/2020: Patsy is here with his for transfer of care after Melphalan 100mg/m2 autologous stem cell transplant D0 = 07/25/2021. He is now D+83 and oneweek ago, he saw Dr. Hall for survivorship visit. We reviewed his post transplant course and prior infections have now resolved. Blood counts have recovered and renal function at prior baseline. He has persistent neuropathy ongabapentin 200mg am, 100mg noon, 200mg pm. I'm setting him up for palliative consultation (previously followed by [facility]). He has a followup bone marrow biopsy scheduled with Dr. Hall in 3 days to document remission. I will discuss with him the plan after bone marrow biopsy--I briefly discussed Revlimidmaintenance with Mr. Mills and his . I will contact patient after bone marrow results to confirm plan with Dr. Hall and f/u with him in about 6 weeks with myeloma labs. 07/02/2020: Patsy has completed all of his pretransplant evaluation at [facility] including cardiology visit 11 9 which showed ejection fraction 60%. I have contacted Dr. Hall who noted that today will be his last day of Velcade and we will hold his daratumumab. He was to have a COVID-19 test on 07/11/2020 for planned stem cell collection 07/17 and transplant on 07/23. I clarified with the staff at [facility] this this may be performed at [facility] and forwarded to them. 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 His pain mainly in hips is about 3 out of 10 and controlled with Percocet. His next follow-up with me rupindery be in about 4 months when he is post transplant although I am happy to see him sooner if new issues arise in his post transplant course that need to be managed closer to home. His most recent labs reveal improving hemoglobin (11.5), stable renal function (creatinine 1.35), normal calcium, and appropriateresponse of kappa light chain to now normal 18 with K/L ratio 2.02. 06/04/2020: Met with Dr. Hall on 05/24/2020 to discuss planning for high-dose chemotherapy peripheral blood stem cell transplant. He has now hemodialysis independent after daratumumab, dexamethasone, and Velcade with addition of Revlimid. Today he reports that he has had increased neuropathy symptoms in hisbilateral hands and feet with mild interference with activity (grade 2). We discussed a 25% dose reduction of Velcade on day 1, day 4, day 8, day 11 with current cycle of DVdR. He has some leg cramps at night, with normal magnesium, but low iron saturation noted--will start daily iron for symptoms. Otherwise heis tolerating therapy well and creatinine is now normal. He was given educationfor the transplant course and he is scheduled in late June after Thanksgiving to proceed with stem cell collection and transplant. I will communicate with Dr. Hall regarding end of therapy and in 1 month I will see him with follow-up myeloma studies. No other new concerns today. 05/07/2020: Patsy is here for 1 month follow-up. Outpatient hemodialysis was stopped after 04/24/2020 due to excellent response. He was evaluated by Dr. Small at [facility] on 04/26/2020. Don and his note that Dr. Hall felt that he was physiologically about 8 years younger than his chronologic age and would likely be transplant eligible if pretransplant work-updeems this feasible. He recommended continuing current daratumumab and Velcade with low-dose Revlimid. He will reevaluate patient in 1 month and likely plan admission for stem cell collection, then high-dose chemotherapy/autologous stem cell transplantation in June or July. The patient's was concerned that she did not understand much of the pretransplant teaching and I explained to her and Don the pathophysiology of plasma cells, light chains, his improving trend of renal function, goal of 90% kappa/lambda ratio reduction prior to transplant. We also refilled Revlimid 5 mg every other day, weekly vitamin D, and I am giving him a trial of tramadol 50 mg every 12 hours as Tylenol is not effective for his pain and we are avoiding NSAIDs and additional aspirin. He otherwise has no toxicities of chemotherapy. He sees Dr. Heath for follow-up tomorrow and maintains insulin with stabilization of his blood sugars following with diabetes management clinic. I will see him in follow-up with myeloma labs in 1 month plan end of therapy prior to transplant. 04/09/2020: Here for one month f/u with his . He continues outpatient hemodialysis on Thursday//Saturdays. He notes fatigue, but generalized edema remarkably improved with no significant pain. I reviewed his M-spike, IgGand kappa light chains with K/L ratio that has remarkably improved (>90% reduction past month). [place] light chains decreased from 12,000 to 42. Only concern is significant hyperglycemia with dexamethasone. 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 I will coordinate evaluation by Dr. Quique Hall for HDC/autologous stem cell transplantevaluation and hold on adding Revlimid since significant response of light chains noted. I contacted Dr. Rahman of nephrology to consider reducing hemodialysis days to twice weekly. I will send myeloma labs in about 4 weeks, have him see Dr. Hall and f/u with me the following week to review plan and determine whether plan for HDC/stem cell transplant. 03/14/2020: Patient presents with his today after initiating both outpatienthemodialysis on Thursday//Saturdays and initial cycle of daratumumab, bortezomib, dexamethasone with potential addition of Revlimid after 1 month if less than optimal response. He received his first cycle of combination chemotherapy 03/12/2020. --Patient tolerated initial daratumumab infusion reasonably well with brief infusion reaction (dizziness and mild wheezing) that was treated with diphenhydramine, steroids, albuterol, and Demerol for rigors. He completed remaining infusion in an outpatient bed on the inpatient [facility] Thursday and we anticipate further weekly daratumumab infusions as an outpatient. --Patient was seen at dialysis today and noted to have hemoglobin 6.8. He will receive 1 unit of packed red blood cells prior to Velcade today for scheduled tomorrow. His was unable to be present at the hospital at time of diagnosis and his initial bone marrow biopsy was performed on 03/08/2020. She requests evaluation with him today for extensive questions regarding his care. She reported her session and requested a copy of this progress note following our visit today. 1. She asked if all the tests at the hospital returned. We discussed the teststhat are used to follow-up myeloma including his elevated IgG, elevated free kappa light chains, and elevated M spike. We discussed in detail the pathophysiology of myeloma but she felt very anxious and overwhelmed and I reassured her that we will readdress this at further follow-up visits. 2. Patient had a metastatic bone survey showing no areas of lytic disease or pathologic fractures. We discussed CRAB criteria for multiple myeloma diagnosisand that he meets criteria of R renal and A anemia, but not elevated calcium or bone disease (C and B). She specifically asked is stage of multiple myeloma andwe noted that he still will require beta-2 glycoprotein (ISS) but is most consistent with stage III. We are still awaiting his chromosomal abnormalities by fluorescence in situ hybridization and will readdress at next follow-up visitwith his final bone marrow biopsy results (this study was only performed 03/08/2020). 3. She wanted to know if his testing showed cancer elsewhere. We discussed that since metastatic bone survey showed more lytic areas I do not feel that F-18 PET is high priority but this may be ordered at some point to assess for any asymptomatic bony metastatic disease. 4. He has recently had elevated blood sugars and does not have a history of diabetes, but we discussed that with weekly steroids he should likely have additional insulin on his steroid days. I offered that this could be managed byhis primary physician Dr. Heath and he could be referred for diabetes management clinic. 5. We reiterated multiple times that his schedule may be variable. He will typically have a long infusion on Mondays with daratumumab but initially he willpresent twice weekly for Velcade injection on Mondays and . This will change during the course of his therapy and he should refer to his calendar. 6. We discussed not taking additional vitamins unless approved by nephrology. I also discussed potentially adding Revlimid and we will address at future visits if this is needed based on his follow-up labs ordered 04/02/2020. His medications may be filled either locally or with his prescription plan, but manyof these will be ordered by nephrology. He is to continue vitamin D2 as recommended by nephrology. Blood pressure medications will be regulated by primary care and nephrology. 7. We discussed concerning side effects, most commonly hyperglycemia, insomnia,risk of thrombosis (recently was diagnosed with left superficial thrombosis of the left upper extremity and additional heparin is given with his dialysis), andneuropathy with Velcade. Patients do not tend to have significant nausea or possible appetite (effects of dexamethasone increase his appetite). I cannot recommend medical marijuana and would discuss this with his pre coder whetherthis would interfere with dialysis. We will also follow closely for cytopenias and reviewed infectious precautions. He has a son from [place] who plans to visit on Thursday and we discussed COVID-19 testing appropriate social isolation protocols. 8. We discussed whether he was eligible for transplant and this will be evaluated based on his response and overall health in likely 3 to 4 months afterinitiation of therapy. We did not discuss autologous stem cell transplant in detail. We did discuss that although this is not curative therapy, many patients are controlled with medication over longer periods of time (often 5 to 6 years) with appropriate therapy. It is an aggressive cancer due to its significant infectious risk and association with renal failure. 9. Exercise may be performed as tolerated but should be done in moderation and likely we should wait a few weeks for more significant exercise given his recentdialysis and initiation of chemotherapy. I did not specifically address his diet but he may address this with our [facility] nutrition team. He will also receivechemotherapy class with our nurses in the infusion center. PRELIMINARY HISTORY (from initial consult 03/08/2020): This is a 75-year-old male who was transferred from [place] emergency room by [facility] due to critical potassium 8.7 with elevated creatinine 11.2 and BUN 82 on 03/04/2020. We do not have any recent blood work for comparison but he hadnormal creatinine in 2012. He was urgently treated for his hyperkalemia and dialysis was arranged emergently by nephrology team. He has now stabilized on dialysis and had extensive work-up for etiology of his acute renal failure with severe anemia felt to be due to anemia of renal insufficiency. Iron studies returned normal with ferritin 160, but B12 low at 84 and folate low normal at 5.2. He is receiving appropriate B12 repletion. The patient reports that he has had a prolonged period of fatigue up to a year and has decreased appetite with subjective weight loss. He denies any significant bone pain other than pain in his right shoulder and has no prior falls or recurrent back pain. He had a shoulder film showing labral pathology of the joint but no fracture or dislocation. Myeloma labs were sent showing M spike 3.6 g/dL with serum immunofixation showing IgG kappa light chain specificity. Serum IgG markedly elevated at 5312 and free kappa light chain 12,649.9 with normal free lambda light chain 11.94 free kappa/lambda ratio 1063. Hepatitis A, B, and C serologies were all negative and COVID-19 screening was negative. LORE, c-ANCA, p-ANCA, anti-GBM, and antimyeloperoxidase were all negative. Clinically the patient has multiple myeloma and I explained that we needed to proceed with bone marrow aspiration and biopsy to provide baseline for diagnosis and to expedite chemotherapy with an aggressive regimen to reduce his light chains. I will review information with him at noon today around the time of his bone marrow biopsy for combinationdaratumumab 16 mg/kg IV weekly, bortezomib 1.3 mg/kg subcu twice weekly, dexamethasone 40 mg weekly, and Revlimid 25 mg p.o. daily days 1 through 14 of each 21-day cycle. Revlimid will be ordered through a special pharmacy. We will schedule his infusions as an outpatient early next week on his nondialysis days. Written literature for these medications will be provided and he may signinformed consent so that we may order this regimen as an outpatient. The patient's is not with him today but has been treated by me for breast cancer in the past and had multiple questions. We would like to arrange a time for her to be available to ask questions and be present for chemo consent, possibly around noon today. This will need to be coordinated with nursing staffdue to [facility]-19 visitor restriction policy. - Summary of Therapies Summary of Therapies: Cycle 1 day 1 03/12/2020: Daratumumab 16 mg/kg IV weekly, bortezomib 1.3 mg/kg subcu twice weekly, dexamethasone 40 mg weekly. 04/09/2020: Under direction of Dr. Hall, in early April we added Revlimid 5 mg every other day of each 21-day cycle with cycle 2 due to excellent response of kappa light chains. 04/26/2020: Malignant hematology eval for possible high-dose chemotherapy/autologous stem cell transplant. He was able to stop dialysis 04/24/2020. Given Velcade only (hold daratumumab) on 07/02/2020. 07/25/2020: Melphalan 100mg/m2 IV day 0 autologous stem cell transplant 07/25/2020at [facility]. 11/26/2020: Follow-up bone marrow aspiration and biopsy 10/18/2020 for MRD evaluation shows hypocellular marrow with 0.5% plasma cells, no clonal population by flow cytometry but 0.03% kappa light chain skewing. Started Revlimid 5 mg daily for maintenance therapy early October 2020. ROS Details: All systems reviewed & no additional complaints except as documented Subjective/ROS - Narrative: CONSTITUTIONAL: Positive for fatigue (improved since HD Melphalan/ASCT), negative for fever or night sweats. Post-transplant infections as per HPI, now resolved. HEAD AND NECK: Improvement of prior blurred vision since control of his diabetesmellitus. Negative for changes in hearing. Negative for mouth ulcers, nasal congestion and nasal drainage. PULMONARY: Negative for chest pain, cough and dyspnea. CARDIOVASCULAR: Negative for claudication and irregular heartbeat/palpitations. Resolved edema since diagnosis, now off dialysis. GASTROINTESTINAL: Negative for abdominal pain, constipation, diarrhea, nausea orvomiting. Improved appetite and 20 kg weight loss after starting dialysis, chemotherapy, and transplant for light chain nephropathy. Now 11/2020--returned to baseline weight pretransplant. GENITOURINARY: Negative for dysuria and hematuria. Patient now with improved urinary output, diagnosed in February 2020 with renal failure requiring dialysis--off dialysis 04/24/2020. Prior nephrolithiasis previously followed by Dr. Seals. ENDOCRINE: Negative for cold intolerance and heat intolerance. Improvement of prior hyperglycemia with home blood sugars in the 100-200s on supplemental insulin glargine. CENTRAL NERVOUS SYSTEM: Negative for gait disturbance and headache. No focal neurologic deficits or history of stroke. Positive for painful sensory neuropathy in legs, worse after transplant--titrating up gabapentin, followed bypalliative medicine. PSYCHIATRIC: Negative for anxiety or depression. DERMATOLOGICAL: Negative for pruritus and rash. Negative for suspicious skin lesions. MUSCULOSKELETAL: Resolved back pain and and thigh pain. Positive for leg crampsdue to neuropathy. No longer on ferrous sulfate post transplant. HEMATOLOGICAL: Negative for bleeding and easy bruising. Negative for history of transfusion (other than 1 unit packed red blood cells prior admission). Positive for left basilic vein thrombus on Doppler ultrasound 03/12/2020--no longer requires anticoagulation. ALLERGY: Negative for environmental allergies and food allergies. [facility] - History Attestation statement: The following information was validated with the patient. Source: Old Records Reviewed - Medical History Medical History: Medical History (Last Reviewed 11/26/20 @ 18:04 by Brook Huddleston MD) Apnea Arthritis Diabetes mellitus, type 2 Hyperlipidemia Hypertension Kidney stones Skin cancer - Family History Family History: Family History (Last Reviewed 11/26/20 @ 18:04 by Brook Huddleston MD) Sister Myocardial infarct Mother Myocardial infarct Father Skin cancer - Social History Smoking Status: Former smoker Tobacco Type: cigarettes Substance Use Type: None Home Medications & Allergies Allergies No Known Allergies Allergy (Verified 11/26/20 11:15) Home Medications famotidine 20 mg PO DAILY #30 tab 03/10/20 [Rx Confirmed 11/26/20] zolpidem [Ambien] 5 mg PO QHS 20 Days #20 tab 03/11/20 [Rx Confirmed 11/26/20] acetaminophen [Tylenol] 650 mg PO DAILY PRN 04/27/20 [History Confirmed 11/26/20] insulin glargine [Lantus Solostar U-100 Insulin] 12 unit SUBCUT DAILY 04/27/20 [History Confirmed 11/26/20] insulin lispro [Humalog KwikPen Insulin] 6 - 16 unit SUBCUT DIRECTED 04/27/20[History Confirmed 11/26/20] hydralazine 25 mg PO BID 07/02/20 [History Confirmed 11/26/20] acyclovir 400 mg PO BID 10/15/20 [History Confirmed 11/26/20] atorvastatin 20 mg PO DAILY 10/15/20 [History Confirmed 11/26/20] cholecalciferol (vitamin D3) [Vitamin D3] 50 mcg PO DAILY 10/15/20 [History Confirmed 11/26/20] furosemide 20 mg PO DAILY 10/15/20 [History Confirmed 11/26/20] gabapentin 100 mg PO DAILY 10/15/20 [History Confirmed 11/26/20] loperamide [Imodium] 2 mg PO QID PRN 10/15/20 [History Confirmed 11/26/20] potassium chloride 20 meq PO DAILY 10/15/20 [History Confirmed 11/26/20] sulfamethoxazole-trimethoprim [Bactrim DS] 1 tab PO BID 10/15/20 [History Confirmed 11/26/20] tramadol 50 mg PO DAILY PRN 10/15/20 [History Confirmed 11/26/20] lenalidomide [Revlimid] 5 mg PO DAILY 28 Days #28 cap 11/20/20 [Rx Confirmed 11/26/20] aspirin [Aspir-81] 81 mg PO DAILY 11/26/20 [History Confirmed 11/26/20] metformin 500 mg PO DAILY 11/26/20 [History Confirmed 11/26/20] Objective - Height/Weight Height/Weight: Height 5 ft 10 in Weight 90.718 kg BSA for Today's Weight 2.10 - Vital Signs Vital Signs: 11/26/20 11:16 Temperature 97.3 F L Pulse Rate [Monitor] 82 Respiratory Rate 20 Blood Pressure [Left Arm] 155/64 H 02 Sat by Pulse Oximetry 99 - Pain Right Hip Pain Intensity: 5 Generalized Pain Intensity: 1 Left Upper Arm Pain Intensity: 4 - Emotional Needs Assessment Emotional Needs Assessment: Emotional Needs Identified? No Physical Exam Narrative: CONSTITUTIONAL: The patient is in no acute distress. No longer appears fatigued. HEAD / FACE: Normocephalic. EYES: Pupils are equal and reactive to light. Conjunctivae and lids are benign in appearance. Ocular movement intact. EARS: Hearing grossly intact. NOSE / MOUTH / THROAT: Nose, mouth, tongue and oropharynx are benign in appearance. No signs of inflammation. NECK / THYROID: Neck is supple. Thyroid is symmetrical, without thyromegaly, masses or palpable nodules. LYMPHATIC: No palpable cervical, supraclavicular, axillary, or inguinal adenopathy. RESPIRATORY: Normal to inspection. Lungs clear to auscultation and percussion. No wheezing, rales, rhonchi or rubs. Normal effort. CARDIOVASCULAR: Regular rate and rhythm. No murmurs, gallops, or rubs. VASCULAR: Carotid, radial, femoral and pedal pulses present bilaterally. No bruits. ABDOMEN: Bowel sounds normoactive. Soft, nontender and non-distended. No hepatosplenomegaly. No masses. GENITOURINARY: No CVA tenderness. No suprapubic fullness or tenderness. No groinadenopathy. No evidence of hernias. INTEGUMENTARY: The skin is unremarkable. No rashes. No suspicious lesions BACK / SPINE: The back is nontender. No step-off deformity. No CVA tenderness. MUSCULOSKELETAL: Normal musculature, no joint deformities or abnormalities, normal range of motion for all four extremities. EXTREMITIES: No longer has bilateral lower extremity edema; no cyanosis or clubbing. No Vitor sign. NEUROLOGICAL: Alert and oriented. Cranial nerves intact. No gross motor deficits. Numbness bilateral feet due to neuropathy. PSYCHIATRIC: No anxiety or evidence of depression. - ECOG Performance Status ECOG Score: 1 Results - Labs Labs: Diagram of Most Recent CBC and CMP 10/08/20 10:02 10/08/20 10:02 Outside Labs: 10/18/2020 ([facility]): WBC 6400, Hg 11.8, Hct 35.4, Platelets 177,000; MCV 103, ANC 4810 Na 136, K 4.4, BUN 18, Creat 0.89, Glu 190, Ca 9.8, Alb 4.3 TB 0.4, AST 23, ALT 27, AP 90 - Impressions No new imaging for review. - Other Results Results/Comments: 10/18/2020 bone marrow aspirate and biopsy without MRD at [facility]. 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 He has marked elevation in IgG kappa on initial laboratory work-up for renal failure in February 2020. He has remained hemodynamically stable and I discussed in detail with the patient the pathophysiology of multiple myeloma and associated injury to kidneys, persistentanemia, bone disease, and potential hypercalcemia (we do not see hypercalcemia in this patient). He consented to inpatient bone marrow biopsy 03/08/2020 which was diagnostic for multiple myeloma--70% plasma cells without amyloid depositionidentified in small marrow specimen. Normal baseline skeletal survey. I reviewed pathophysiology of myeloma, results of bone marrow biopsy, skeletal survey, and myeloma labs with the patient and his . Patsy consented to begin first cycle Daratumumab, Velcade, and dexamethasone on03/12/2020--other than infusion reaction from first Daratumumab, improved with symptomatic therapy. I reviewed his case with Dr. Quique Hall of Malignant Hematology--we added Revlimid 5mg every other day following significant reduction of light chains--this was started in early April. 05/07/2020: As per HPI, Angel and his met with Dr. Hall 04/26/2020 with preparation for likely high-dose chemotherapy/autologous peripheral stem cell transplant if he meets criteria based on cardiopulmonary work-up. He has had greater than 90%. The patient was able to discontinue hemodialysis on 04/24/2020 and has not had any recurrence of edema with now improved renal function, creatinine clearance now 53. --I will continue current therapy with further evaluation by Dr. Hall in 1 month for planning his HDC/autologous stem cell transplant. We will send repeatmyeloma labs (SPEP, IgG, kappa/lambda light chains) in 4 weeks with f/u visit with me the following week to review results as well as evaluation with Dr. Hall for possible stem cell transplant. 06/04/2020: Tolerating chemotherapy well other than increasing neuropathy of hands and feet. I will dose reduce Velcade by 25% next cycle. Likely hold therapy after mid Jun for planned stem cell harvest and transplant planning. I will contact Dr. Hall for planned timing. F/u with me in one month. Add dailyferrous sulfate. --He was referred to diabetes management clinic and sees Dr. Heath with regularfollow-up by Dr. Rahman since he is off dialysis. Diabetes control improved. 07/02/2020: Last dose of Velcade today. Neuropathy is stable and pain is well controlled. He will have COVID-19 test on 07/11/2020 for planned admission for stem cell collection on 07/17/2020 then high-dose melphalan followed by peripheral blood stem cell transplant day 0 scheduled 07/23/2020. His next follow-up with me will be in about 4 months after he is completed day 100 transplant follow-up. He may return sooner as needed. 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 Melphalan 100mg/m2 + ASCT Day 0 07/25/2020. 11/26/2020: Followup of [facility] end of therapy bone marrow biopsy 10/18/2020--no minimal residual disease. Started Revlimid maintenance 5mg daily in early October2020. He will be due for first post transplant vaccines in about 6 months. Next followup with me in 3 months for exam and f/u myeloma labs. Titrating up gabapentin by palliative medicine for ongoing management of painful neuropathy. Extended nephrology followup to annual. May return sooner if new issues arise. F/u skeletal survey 1 yr s/p transplant. This is a moderate complexity visit over 30 minutes for symptom review, bone marrow biopsy review, and coordination of care with tertiary malignant hematology, and ongoing counseling treatment course and surveillance with patient and his . (2) Chemotherapy-induced peripheral neuropathy 25% dose reduction Velcade prior to stem cell transplant due to reports of increased pain from neuropathy in fingers and feet. Worsening symptoms after transplant, referred back to palliative medicine for further management. Gabapentin now titrated to 400mg/300mg/400mg each day--will continue to followupwith palliative medicine. (3) Iron deficiency anemia Prior leg cramps with low iron saturation. Ferritin inappropriately normal due to inflammation from myeloma. Daily oral iron added due to symptomatic leg cramps and persistent anemia. Recheck iron studies were not ordered--may send with 3 month followup. No longer taking oral iron--mild macrocytic anemia post transplant. (4) History of hemodialysis Initiated inpatient hemodialysis 02/2020, then transitioned to outpatient hemodialysis 3 times weekly Thursday//Thursday schedule. Chemotherapy given Thursday/. 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 He was actually able to stop dialysis within 2 months with the last session 04/24/2020 as noted above. High-dose chemotherapy with autologous stem cell transplant was offered by Dr. Hall met at Malignant Hematology based on his good physiologic health despite his advanced age if cardiopulmonary work-up for this is suitable. For now we will give last dose Velcade (with 25% DR for neuropathy), dexamethasone today--holding daratumumab per Dr. Hall's request. Now D+126 after Melphalan 100mg/m2 + autologous PBSCT in early July given his significant response to initial myeloma directed therapy. Continued f/u withnephrology now annual post transplant due to normal renal function. (5) Steroid-induced diabetes mellitus Qualifiers: Encounter type: subsequent encounter Qualified Code(s): E09.9 - Drug or chemical induced diabetes mellitus without complications; T38.0X5D - Adverse effect of glucocorticoids and synthetic analogues, subsequent encounter Patsy had an excellent response of light chains but was noted to have significant hyperglycemia 300-500 fasting blood sugars. He was referred to diabetes management clinic with addition of insulin therapy that has significantly improved control of his blood sugars. Patient also had remarked on some blurred vision that improved with control of blood sugars. Continue follow-up of blood sugars during admission for transplant in early July. Increased peripheral neuropathy complaints in bilateral hands and feet after 25%dose reduction of Velcade and worsening post transplant. Now resumed low dose metformin and titrating down insulin--directed by his primary physician. (6) B12 deficiency Patient was found to have B12 deficiency and was been placed on daily B12 prior to hospital discharge. We continued weekly IM B12 for 8 weeks with his myeloma regimen. Hemoglobin is improved on Aranesp and weekly B12, then changed to monthly maintenance therapy. He has not required further blood transfusions since 03/15/2020. Follow- up methylmalonic acid on 04/30/2020 was normal showing adequate replacement. He will continue monthly IM B12 and weekly vitamin D2 therapy 50,000 units orally for low 25 hydroxy vitamin D stores. He may take supplemental calcium once daily. (7) Encounter for chemotherapy management Started cycle 1 day 1 03/12/2020: Daratumumab 16 mg/kg IV weekly, bortezomib 1.3 mg/kg subcu twice weekly, dexamethasone 40 mg weekly. We added Revlimid 5 mg every other day of each 21-day cycle with cycle 2 due to excellent reduction of kappa light chains (recommended by Dr. Hall malignanthematology). 06/04/2020: 25% DR Bortezumab (100% all other meds) due to worsening neuropathy. Last dose of 4009 07/02/2020) and holding daratumumab per request of Dr. Hall. 07/25/2020: Melphalan 100mg/m2 + autologous PBSCT 10/18/2020: Started Revlimid maintenance after bone marrow biopsy negative for MRD. - Chemo Plan Chemo Plan (Dose, Rate, Freq): 07/25/2020: Melphalan 100mg/m2 + autologous PBSCT-->10/2020 Revlimid 5mg daily maintenance after bone marrow biopsy. Goal of Treatment: Control - Time with Patient Time Spent with Patient (Follow Up Visit): 35 minutes Coordination of Care & Counseling Time: Greater than 50% of time spent with patient was for coordination of care (as documented) and [id number] counseling of patient and/or family. Dictated By: Brook Huddleston MD DD/ 1120 Signed By: <Electronically signed by MD Brook Huddleston> 11/26/20 1827 [facility] Work Phone: [phone]) 399-972703-02-2021 Progress note Author Brook Huddleston [facility] October 15, 2020 10:42pm Note Date/Time October 15, 2020 10:2 6am [facility] at [address] [address] Hem/Onc Follow Up Note - OP Signed Patient: Patsy Mills MR#: [id number] : 1945 Acct:[id number] Age/Sex: 75 / M Type: REG RCR Copies to: MD Siva Jaramillo MD Richard R Keller, MD~ Subjective Date/Time of Service: Date of Service: 10/15/2020 Time of Service: 10:25 Chief Complaint: Patient is here today for 4 month follow up vsiit for light chanin neuropathy due to multiple myeloma. He has labs to review. He he had recent stem cell transplant 07/25/2020. He has neuropathy that has been bothering him HPI: 10/15/2020: Patsy is here with his for transfer of care after Melphalan 100mg/m2 autologous stem cell transplant D0 = 07/25/2021. He is now D+83 and oneweek ago, he saw Dr. Hall for survivorship visit. We reviewed his post transplant course and prior infections have now resolved. Blood counts have recovered and renal function at prior baseline. He has persistent neuropathy ongabapentin 200mg am, 100mg noon, 200mg pm. I'm setting him up for palliative consultation (previously followed by [facility]). He has a followup bone marrow biopsy scheduled with Dr. Hall in 3 days to document remission. I will discuss with him the plan after bone marrow biopsy--I briefly discussed Revlimidmaintenance with Mr. Mills and his . I will contact patient after bone marrow results to confirm plan with Dr. Hall and f/u with him in about 6 weeks with myeloma labs. 07/02/2020: Patsy has completed all of his pretransplant evaluation at [facility] [facility] including cardiology visit 11 9 which showed ejection fraction 60%. I have contacted Dr. Hall who noted that today will be his last day of Velcade and we will hold his daratumumab. He was to have a COVID-19 teston 07/11/2020 for planned stem cell collection 07/17 and transplant on 07/23. I clarified with the staff at [facility] this this may be performed at [facility] and forwarded to them. 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 His pain mainly in hips is about 3 out of 10 and controlled with Percocet. His next follow-up with me jaime be in about 4 months when he is post transplant although I am happy to see him sooner if new issues arise in his post transplant course that need to bemanaged closer to home. His most recent labs reveal improving hemoglobin (11.5), stable renal function (creatinine 1.35), normal calcium, and appropriateresponse of kappa light chain to now normal 18 with K/L ratio 2.02. 06/04/2020: Met with Dr. Hall on 05/24/2020 to discuss planning for high-dose chemotherapy peripheral blood stem cell transplant. He has now hemodialysis independent after daratumumab, dexamethasone, and Velcade with addition of Revlimid. Today he reports that he has had increased neuropathy symptoms in hisbilateral hands and feet with mild interference with activity (grade 2). We discussed a 25% dose reduction of Velcade on day 1, day 4, day 8, day 11 with current cycle of DVdR. He has some leg cramps at night, with normal magnesium, but low iron saturation noted--will start daily iron for symptoms. Otherwise heis tolerating therapy well and creatinine is now normal. He was given educationfor the transplant course and he is scheduled in late June after [place] to proceed with stem cell collection and transplant. I will communicate with Dr. Hall regarding end of therapy and in 1 month I will see him with follow-up myeloma studies. No other new concerns today. 05/07/2020: Patsy is here for 1 month follow-up. Outpatient hemodialysis was stopped after 04/24/2020 due to excellent response. He was evaluated by Dr. Quique Hall at [facility] on 04/26/2020. Angel and his note that Dr. Hall felt that he was physiologically about 8 years younger than his chronologic age and would likely be transplant eligible if pretransplant work-updeems this feasible. He recommended continuing current daratumumab and Velcade with low-dose Revlimid. He will reevaluate patient in 1 month and likely plan admission for stem cell collection, then high-dose chemotherapy/autologous stem cell transplantation in June or July. The patient's was concerned that she did not understand much of the pretransplant teaching and I explained to her and Don the pathophysiology of plasma cells, light chains, his improving trend of renal function, goal of 90% kappa/lambda ratio reduction prior to transplant. We also refilled Revlimid 5 mg every other day, weekly vitamin D, and I am giving him a trial of tramadol 50 mg every 12 hours as Tylenol is not effective for his pain and we are avoiding NSAIDs and additional aspirin. He otherwise has no toxicities of chemotherapy. He sees Dr. Heath for follow-up tomorrow and maintains insulin with stabilization of his blood sugars following with diabetes management clinic. I will see him in follow-up with myeloma labs in 1 month plan end of therapy prior to transplant. 04/09/2020: Here for one month f/u with his . He continues outpatient hemodialysis on Thursday//Saturdays. He notes fatigue, but generalized edema remarkably improved with no significant pain. I reviewed his M-spike, IgGand kappa light chains with K/L ratio that has remarkably improved (>90% reduction past month). [place] light chains decreased from 12,000 to 42. Only concernis significant hyperglycemia with dexamethasone. 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 I will coordinate evaluation by Dr. Quique Hall for HDC/autologous stem cell transplant evaluationand hold on adding Revlimid since significant response of light chains noted. Icontacted Dr. Rahman of nephrology to consider reducing hemodialysis days to twice weekly. I will send myeloma labs in about 4 weeks, have him see Dr. Gonzáles f/u with me the following week to review plan and determine whether plan forHDC/stem cell transplant. 03/14/2020: Patient presents with his today after initiating both outpatienthemodialysis on Thursday//Saturdays and initial cycle of daratumumab, bortezomib, dexamethasone with potential addition of Revlimid after 1 month if less than optimal response. He received his first cycle of combination chemotherapy 03/12/2020. --Patient tolerated initial daratumumab infusion reasonably well with brief infusion reaction (dizziness and mild wheezing) that was treated with diphenhydramine, steroids, albuterol, and Demerol for rigors. He completed remaining infusion in an outpatient bed on the inpatient [place] Thursday and we anticipate further weekly daratumumab infusions as an outpatient. --Patient was seen at dialysis today and noted to have hemoglobin 6.8. He will receive 1 unit of packed red blood cells prior to Velcade today for scheduled tomorrow. His was unable to be present at the hospital at time of diagnosis and his initial bone marrow biopsy was performed on 03/08/2020. She requests evaluation with him today for extensive questions regarding his care. She reported her session and requested a copy of this progress note following our visit today. 1. She asked if all the tests at the hospital returned. We discussed the teststhat are used to follow-up myeloma including his elevated IgG, elevated free kappa light chains, and elevated M spike. We discussed in detail the pathophysiology of myeloma but she felt very anxious and overwhelmed and I reassured her that we will readdress this at further follow-up visits. 2. Patient had a metastatic bone survey showing no areas of lytic disease or pathologic fractures. We discussed CRAB criteria for multiple myeloma diagnosisand that he meets criteria of R renal and A anemia, but not elevated calcium or bone disease (C and B). She specifically asked is stage of multiple myeloma andwe noted that he still will require beta-2 glycoprotein (ISS) but is most consistent with stage III. We are still awaiting his chromosomal abnormalities by fluorescence in situ hybridization and will readdress at next follow-up visitwith his final bone marrow biopsy results (this study was only performed 03/08/2020). 3. She wanted to know if his testing showed cancer elsewhere. We discussed that since metastatic bone survey showed more lytic areas I do not feel that F-18 PET is high priority but this may be ordered at some point to assess for any asymptomatic bony metastatic disease. 4. He has recently had elevated blood sugars and does not have a history of diabetes, but we discussed that with weekly steroids he should likely have additional insulin on his steroid days. I offered that this could be managed byhis primary physician Dr. Heath and he could be referred for diabetes management clinic. 5. We reiterated multiple times that his schedule may be variable. He will typically have a long infusion on Mondays with daratumumab but initially he willpresent twice weekly for Velcade injection on Mondays and . This will change during the course of his therapy and he should refer to his calendar. 6. We discussed not taking additional vitamins unless approved by nephrology. I also discussed potentially adding Revlimid and we will address at future visits if this is needed based on his follow-up labs ordered 04/02/2020. His medications may be filled either locally or with his prescription plan, but many ofthese will be ordered by nephrology. He is to continue vitamin D2 as recommended by nephrology. Blood pressure medications will be regulated by primary care and nephrology. 7. We discussed concerning side effects, most commonly hyperglycemia, insomnia,risk of thrombosis (recently was diagnosed with left superficial thrombosis of the left upper extremity and additional heparin is given with his dialysis), andneuropathy with Velcade. Patients do not tend to have significant nausea or possible appetite (effects of dexamethasone increase his appetite). I cannot recommend medical marijuana and would discuss this with his pre coder whetherthis would interfere with dialysis. We will also follow closely for cytopenias and reviewed infectious precautions. He has a son from [place] who plans to visit on Thursday and we discussed COVID-19 testing appropriate social isolation protocols. 8. We discussed whether he was eligible for transplant and this will be evaluated based on his response and overall health in likely 3 to 4 months afterinitiation of therapy. We did not discuss autologous stem cell transplant in detail. We did discuss that although this is not curative therapy, many patients are controlled with medication over longer periods of time (often 5 to 6 years) with appropriate therapy. It is an aggressive cancer due to its significant infectious risk and association with renal failure. 9. Exercise may be performed as tolerated but should be done in moderation and likely we should wait a few weeks for more significant exercise given his recentdialysis and initiation of chemotherapy. I did not specifically address his diet but he may address this with our [facility] nutrition team. He will also receivechemotherapy class with our nurses in the infusion center. PRELIMINARY HISTORY (from initial consult 03/08/2020): This is a 75-year-old male who was transferred from [place] emergency room by [facility] due to critical potassium 8.7 with elevated creatinine 11.2 and BUN 82 on 03/04/2020. We do not have any recent blood work for comparison but he hadnormal creatinine in 2011. He was urgently treated for his hyperkalemia and dialysis was arranged emergently by nephrology team. He has now stabilized on dialysis and had extensive work-up for etiology of his acute renal failure with severe anemia felt to be due to anemia of renal insufficiency. Iron studies returned normal with ferritin 160, but B12 low at 84 and folate low normal at 5.2. He is receiving appropriate B12 repletion. The patient reports that he has had a prolonged period of fatigue up to a year and has decreased appetite with subjective weight loss. He denies any significant bone pain other than pain in his right shoulder and has no prior falls or recurrent back pain. He had a shoulder film showing labral pathology of the joint but no fracture or dislocation. Myeloma labs were sent showing M spike 3.6 g/dL with serum immunofixation showing IgG kappa light chain specificity. Serum IgG markedly elevated at 5312 and free kappa light chain 12,649.9 with normal free lambda light chain 11.94 free kappa/lambda ratio 1063. Hepatitis A, B, and C serologies were all negative and COVID-19 screening was negative. LORE, c-ANCA, p-ANCA, anti-GBM, and antimyeloperoxidase were all negative. Clinically the patient has multiple myeloma and I explained that we needed to proceed with bone marrow aspiration and biopsy to provide baseline for diagnosis and to expedite chemotherapy with an aggressive regimen to reduce his light chains. I will review information with him at noon today around the time of his bone marrow biopsy for combinationdaratumumab 16 mg/kg IV weekly, bortezomib 1.3 mg/kg subcu twice weekly, dexamethasone 40 mg weekly, and Revlimid 25 mg p.o. daily days 1 through 14 of each 21-day cycle. Revlimid will be ordered through a special pharmacy. We will schedule his infusions as an outpatient early next week on his nondialysis days. Written literature for these medications will be provided and he may signinformed consent so that we may order this regimen as an outpatient. The patient's is not with him today but has been treated by me for breast cancer in the past and had multiple questions. We would like to arrange a time for her to be available to ask questions and be present for chemo consent, possibly around noon today. This will need to be coordinated with nursing staffdue to [facility]-19 visitor restriction policy. - Summary of Therapies Summary of Therapies: Cycle 1 day 1 03/12/2020: Daratumumab 16 mg/kg IV weekly, bortezomib 1.3 mg/kg subcu twice weekly, dexamethasone 40 mg weekly. 04/09/2020: Under direction of Dr. Hall, in early April we added Revlimid 5 mg every other day of each 21-day cycle with cycle 2 due to excellent response of kappa light chains. 04/26/2020: Malignant hematology eval for possible high-dose chemotherapy/autologous stem cell transplant. He was able to stop dialysis 04/24/2020. Given Velcade only (hold daratumumab) on 07/02/2020. 07/25/2020: Melphalan 100mg/m2 IV day 0 autologous stem cell transplant 07/25/2020at [facility]. ROS Details: All systems reviewed & no additional complaints except as documented Subjective/ROS - Narrative: CONSTITUTIONAL: Positive for fatigue (improved since HD Melphalan/ASCT), negative for fever or night sweats. Post-transplant infections as per HPI, now resolved. HEAD AND NECK: Improvement of prior blurred vision since control of his diabetesmellitus. Negative for changes in hearing. Negative for mouth ulcers, nasal congestion and nasal drainage. PULMONARY: Negative for chest pain, cough and dyspnea. CARDIOVASCULAR: Negative for claudication and irregular heartbeat/palpitations. Resolved edema since diagnosis, now off dialysis. GASTROINTESTINAL: Negative for abdominal pain, constipation, diarrhea, nausea orvomiting. Improved appetite and stable 20 kg weight loss after starting dialysis, chemotherapy, and transplant for light chain nephropathy. GENITOURINARY: Negative for dysuria and hematuria. Patient now with improved urinary output, diagnosed in February 2020 with renal failure requiring dialysis--offdialysis 04/24/2020. Prior nephrolithiasis previously followed by Dr. Seals. ENDOCRINE: Negative for cold intolerance and heat intolerance. Improvement of prior hyperglycemia with home blood sugars in the 100-200s on supplemental insulin glargine. CENTRAL NERVOUS SYSTEM: Negative for gait disturbance and headache. No focal neurologic deficits or history of stroke. Positive for painful sensory neuropathy in legs, worse after transplant. PSYCHIATRIC: Negative for anxiety or depression. DERMATOLOGICAL: Negative for pruritus and rash. Negative for suspicious skin lesions. MUSCULOSKELETAL: Positive for back pain and and thigh pain for the past few weeks. Positive for leg cramps. Added ferrous sulfate once daily for iron saturation 11%. Added tramadol 50 mg every 6 hours as needed 05/07/2020. HEMATOLOGICAL: Negative for bleeding and easy bruising. Negative for history of transfusion (other than 1 unit packed red blood cells prior admission). Positive for left basilic vein thrombus on Doppler ultrasound 03/12/2020. ALLERGY: Negative for environmental allergies and food allergies. PMFSH - History Attestation statement: The following information was validated with the patient. Source: Old Records Reviewed - Medical History Medical History: Medical History (Last Reviewed 10/15/20 @ 22:26 by Brook Huddleston MD) Apnea Arthritis Diabetes mellitus, type 2 Hyperlipidemia Hypertension Kidney stones Skin cancer - Family History Family History: Family History (Last Reviewed 10/15/20 @ 22:26 by Brook Huddleston MD) Sister Myocardial infarct Mother Myocardial infarct Father Skin cancer - Social History Smoking Status: Former smoker Tobacco Type: cigarettes Substance Use Type: None Home Medications & Allergies Allergies No Known Allergies Allergy (Verified 03/04/20 08:33) Home Medications famotidine 20 mg PO DAILY #30 tab 03/10/20 [Rx Confirmed 10/15/20] zolpidem [Ambien] 5 mg PO QHS 20 Days #20 tab 03/11/20 [Rx Confirmed 10/15/20] acetaminophen [Tylenol] 650 mg PO DAILY PRN 04/27/20 [History Confirmed 10/15/20] insulin glargine [Lantus Solostar U-100 Insulin] 12 unit SUBCUT DAILY 04/27/20 [History Confirmed 10/15/20] insulin lispro [Humalog KwikPen Insulin] 6 - 16 unit SUBCUT DIRECTED 04/27/20[History Confirmed 10/15/20] hydralazine 25 mg PO BID 07/02/20 [History Confirmed 10/15/20] acyclovir 400 mg PO BID 10/15/20 [History Confirmed 10/15/20] atorvastatin 20 mg PO DAILY 10/15/20 [History Confirmed 10/15/20] cholecalciferol (vitamin D3) [Vitamin D3] 50 mcg PO DAILY 10/15/20 [History Confirmed 10/15/20] furosemide 20 mg PO DAILY 10/15/20 [History Confirmed 10/15/20] gabapentin 100 mg PO DAILY 10/15/20 [History Confirmed 10/15/20] loperamide [Imodium] 2 mg PO QID PRN 10/15/20 [History Confirmed 10/15/20] potassium chloride 20 meq PO DAILY 10/15/20 [History Confirmed 10/15/20] sulfamethoxazole-trimethoprim [Bactrim DS] 1 tab PO BID 10/15/20 [History Confirmed 10/15/20] tramadol 50 mg PO DAILY PRN 10/15/20 [History Confirmed 10/15/20] Objective - Height/Weight Height/Weight: Height 5 ft 11 in Weight 84.368 kg BSA for Today's Weight 2.10 - Vital Signs Vital Signs: 10/15/20 10:17 Pulse Rate [Monitor] 86 Respiratory Rate 20 Blood Pressure [Left Arm] 152/76 H 02 Sat by Pulse Oximetry 98 - Pain Right Hip Pain Intensity: 5 Generalized Pain Intensity: 1 Left Upper Arm Pain Intensity: 4 - Emotional Needs Assessment Emotional Needs Assessment: Emotional Needs Identified? No Physical Exam Narrative: CONSTITUTIONAL: The patient is in no acute distress. No longer appears fatigued. HEAD / FACE: Normocephalic. EYES: Pupils are equal and reactive to light. Conjunctivae and lids are benign in appearance. Ocular movement intact. EARS: Hearing grossly intact. NOSE / MOUTH / THROAT: Nose, mouth, tongue and oropharynx are benign in appearance. No signs of inflammation. NECK / THYROID: Neck is supple. Thyroid is symmetrical, without thyromegaly, masses or palpable nodules. LYMPHATIC: No palpable cervical, supraclavicular, axillary, or inguinal adenopathy. RESPIRATORY: Normal to inspection. Lungs clear to auscultation and percussion. No wheezing, rales, rhonchi or rubs. Normal effort. CARDIOVASCULAR: Regular rate and rhythm. No murmurs, gallops, or rubs. VASCULAR: Carotid, radial, femoral and pedal pulses present bilaterally. No bruits. ABDOMEN: Bowel sounds normoactive. Soft, nontender and non-distended. No hepatosplenomegaly. No masses. GENITOURINARY: No CVA tenderness. No suprapubic fullness or tenderness. No groinadenopathy. No evidence of hernias. INTEGUMENTARY: The skin is unremarkable. No rashes. No suspicious lesions BACK / SPINE: The back is nontender. No step-off deformity. No CVA tenderness. MUSCULOSKELETAL: Normal musculature, no joint deformities or abnormalities, normal range of motion for all four extremities. EXTREMITIES: No longer has bilateral lower extremity edema; no cyanosis or clubbing. No Vitor sign. NEUROLOGICAL: Alert and oriented. Cranial nerves intact. No gross motor deficits. Numbness bilateral feet due to neuropathy. PSYCHIATRIC: No anxiety or evidence of depression. - ECOG Performance Status ECOG Score: 1 Results - Labs Labs: Diagram of Most Recent CBC and CMP 10/08/20 10:02 10/08/20 10:02 Labs - Last 7 Days 10/08/20 10:02: Ur Random Albumin 48.3, U Random Total Protein 4.7, U Ellbm-4-Kvgovsju (%) 7.2, U Random f-9-Embixtyg % 11.5, U Random b-Globulin % 12.0, U Random Gamma Glob % 21.1, U Random M-Anselmo (%) Not observed, Urine Random PEP Note , Urine Immunofixation 10/08/20 10:02: Serum Total Protein 5.9 L, Albumin (Send Out) 3.4, Globulin (PEP) 2.5, Albumin/Globulin (PEP) 1.4, Qgvwu-8-Juufxjiol 0.2, Ncbiz-6-Emtmceuxe 0.9, Beta Globulins 0.9, Gamma Globulins 0.5, M-Anselmo Not observed, PEP Note , IgG 525 L, IgA 56 L, IgM 16, Serum Immunofixation , Free [place] LC, Quant 8.7, Free Lambda LC, Quant 3.9 L, Free [place]/Lambda Ratio 2.23 H 10/08/20 10:02: PHA Creatinine Clear 77.25, Sodium 133 L, Potassium 4.5, Chloride 99, Carbon Dioxide 22.9, BUN 16, Creatinine 0.88, Est GFR ( Amer) > 60, Est GFR (Non-Af Amer) > 60, Glucose 310 H, Calcium 9.2, Total Bilirubin 0.6, AST 15, ALT 19, Alkaline Phosphatase 83, Lactate Dehydrogenase 154, Total Protein 5.6 L, Albumin 3.6, Globulin 2.0, Albumin/Globulin Ratio 1.8 10/08/20 10:02: Corrected WBC 5.0, Uncorrected WBC Count 5.0, RBC 3.22 L, Hgb 11.4 L, Hct 32.8 L, MCV 101.9 H, MCH 35.6 H, MCHC 34.9, RDW 20.2 H, Plt Count 195, MPV 7.6, Neut % (Auto) 79.2, Lymph % (Auto) 11.3, [place] % (Auto) 6.7, Eos % (Auto) 2.5, Baso % (Auto) 0.3, Neut # (Auto) 4.0, Lymph # (Auto) 0.6 L, [place] # (Auto) 0.3, Eos # (Auto) 0.1, Baso # (Auto) 0.0, Nucleated RBC % (auto) 0.2 - Impressions No new imaging for review. 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 He has marked elevation in IgG kappa on initial laboratory work-up for renal failure in February 2020. He has remained hemodynamically stable and I discussed in detail with the patient the pathophysiology of multiple myeloma and associated injury to kidneys, persistentanemia, bone disease, and potential hypercalcemia (we do not see hypercalcemia in this patient). He consented to inpatient bone marrow biopsy 03/08/2020 which was diagnostic for multiple myeloma--70% plasma cells without amyloid depositionidentified in small marrow specimen. Normal baseline skeletal survey. I reviewed pathophysiology of myeloma, results of bone marrow biopsy, skeletal survey, and myeloma labs with the patient and his . Patsy consented to begin first cycle Daratumumab, Velcade, and dexamethasone on03/12/2020--other than infusion reaction from first Daratumumab, improved with symptomatic therapy. I reviewed his case with Dr. Quique Hall of Malignant Hematology--we added Revlimid 5mg every other day following significant reduction of light chains--this was started in early April. 05/07/2020: As per HPI, Angel and his met with Dr. Hall 04/26/2020 with preparation for likely high-dose chemotherapy/autologous peripheral stem cell transplant if he meets criteria based on cardiopulmonary work-up. He has had greater than 90%. The patient was able to discontinue hemodialysis on 04/24/2020 and has not had any recurrence of edema with now improved renal function, creatinine clearance now 53. --I will continue current therapy with further evaluation by Dr. Hall in 1 month for planning his HDC/autologous stem cell transplant. We will send repeatmyeloma labs (SPEP, IgG, kappa/lambda light chains) in 4 weeks with f/u visit with me the following week to review results as well as evaluation with Dr. Hall for possible stem cell transplant. 06/04/2020: Tolerating chemotherapy well other than increasing neuropathy of hands and feet. I will dose reduce Velcade by 25% next cycle. Likely hold therapy after mid Jun for planned stem cell harvest and transplant planning. I will contact Dr. Hall for planned timing. F/u with me in one month. Add dailyferrous sulfate. --He was referred to diabetes management clinic and sees Dr. Heath with regularfollow-up by Dr. Rahman since he is off dialysis. Diabetes control improved. 07/02/2020: Last dose of Velcade today. Neuropathy is stable and pain is well controlled. He will have COVID-19 test on 07/11/2020 for planned admission for stem cell collection on 07/17/2020 then high-dose melphalan followed by peripheral blood stem cell transplant day 0 scheduled 07/23/2020. His next follow-up with me will be in about 4 months after he is completed day 100 transplant follow-up. He may return sooner as needed. 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 Melphalan 100mg/m2 + ASCT Day 0 07/25/2020. End of therapy bone marrow biopsy . Reviewed survivorship recommendations from Evaluation with Dr. Hall last week. He will be due for first post transplant vaccines in 6 months. We will discuss resuming Revlimid maintenance based on bone marrow biopsy results. Next followup with me in 6 weeks to review bone marrow biopsy and f/u myeloma labs. Referring back to palliative medicine for ongoing management of painful neuropathy. Has f/u with nephrology next week. This is a moderate complexity visit over 30 minutes for symptom review and coordination of care with tertiary malignant hematology evaluation last week , and review of laboratories/further plan for therapy, and ongoing counseling treatment course with patient and his . (2) Chemotherapy-induced peripheral neuropathy 25% dose reduction Velcade prior to stem cell transplant due to reports of increased pain from neuropathy in fingers and feet. Worsening symptoms after transplant, referring back to palliative medicine for further management. Gabapentin 200mg/100mg/200mg each day. (3) Iron deficiency anemia Prior leg cramps with low iron saturation. Ferritin inappropriately normal due to inflammation from myeloma. Daily oral iron added due to symptomatic leg cramps and persistent anemia. Recheck iron studies at 6 week f/u visit. (4) History of hemodialysis Initiated inpatient hemodialysis 02/2020, then transitioned to outpatient hemodialysis 3 times weekly Thursday//Thursday schedule. Chemotherapy given Thursday/. 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 He was actually able to stop dialysis within 2 months with the last session 04/24/2020 as noted above. High-dose chemotherapy with autologous stem cell transplant was offered by Dr. Hall met at [facility] based on his good physiologic health despite his advanced age if cardiopulmonary work-up for this is suitable. For now we will give last dose Velcade (with 25% DR for neuropathy), dexamethasone today--holding daratumumab per Dr. Hall's request. Now D+83 after Melphalan 100mg/m2 + autologous PBSCT in early July given hissignificant response to initial myeloma directed therapy. Continued f/u with nephrology post transplant. (5) Steroid-induced diabetes mellitus Qualifiers: Encounter type: subsequent encounter Qualified Code(s): E09.9 - Drug or chemical induced diabetes mellitus without complications; T38.0X5D - Adverse effect of glucocorticoids and synthetic analogues, subsequent encounter Patsy had an excellent response of light chains but was noted to have significant hyperglycemia 300-500 fasting blood sugars. He was referred to diabetes management clinic with addition of insulin therapy that has significantly improved control of his blood sugars. Patient also had remarked onsome blurred vision that improved with control of blood sugars. Continue follow-up of blood sugars during admission for transplant in early July. Increased peripheral neuropathy complaints in bilateral hands and feet after 25%dose reduction of Velcade and worsening post transplant. (6) B12 deficiency Patient was found to have B12 deficiency and was been placed on daily B12 prior to hospital discharge. We continued weekly IM B12 for 8 weeks with his myeloma regimen. Hemoglobin is improved on Aranesp and weekly B12, then changed to monthly maintenance therapy. He has not required further blood transfusions since 03/15/2020. Follow- up methylmalonic acid on 04/30/2020 was normal showing adequate replacement. He will continue monthly IM B12 and weekly vitamin D2 therapy 50,000 units orally for low 25 hydroxy vitamin D stores. He may take supplemental calcium once daily. (7) Encounter for chemotherapy management Started cycle 1 day 1 03/12/2020: Daratumumab 16 mg/kg IV weekly, bortezomib 1.3 mg/kg subcu twice weekly, dexamethasone 40 mg weekly. We added Revlimid 5 mg every other day of each 21-day cycle with cycle 2 due to excellent reduction of kappa light chains (recommended by Dr. Hall malignanthematology). 06/04/2020: 25% Bortezumab (100% all other meds) due to worsening neuropathy. Last dose of 4009 07/02/2020) and holding daratumumab per request of Dr. Hall. P 07/25/2020: Melphalan 100mg/m2 + autologous PBSCT--consider Revlimid maintenanceafter bone marrow biopsy. - Chemo Plan Chemo Plan (Dose, Rate, Freq): 07/25/2020: Melphalan 100mg/m2 + autologous PBSCT--consider Revlimid maintenanceafter bone marrow biopsy. Goal of Treatment: Control - Time with Patient Time Spent with Patient (Follow Up Visit): 35 minutes Coordination of Care & Counseling Time: Greater than 50% of time spent with patient was for coordination of care (as documented) and [id number] counseling of patient and/or family. Dictated By: Brook Huddleston MD DD/ [id number] Signed By: <Electronically signed by MD Brook Huddleston> 10/15/20 [address] [facility] Work Phone: [phone]) 728-435203-02-2021 Progress note Author Brook Huddleston [facility] October 15, 2020 10:42pm Note Date/Time October 15, 2020 10:2 6am [facility] [place] [address] Hem/Onc Follow Up Note - OP Signed Patient: Patsy Mills MR#: [id number] : 1945 Acct:[id number] Age/Sex: 75 / M Type: REG RCR Copies to: MD Siva Jaramillo MD Richard R Keller, MD~ Subjective Date/Time of Service: Date of Service: 10/15/2020 Time of Service: 10:25 Chief Complaint: Patient is here today for 4 month follow up vsiit for light chanin neuropathy due to multiple myeloma. He has labs to review. He he had recent stem cell transplant 07/25/2020. He has neuropathy that has been bothering him HPI: 10/15/2020: Patsy is here with his for transfer of care after Melphalan 100mg/m2 autologous stem cell transplant D0 = 07/25/2021. He is now D+83 and oneweek ago, he saw Dr. Hall for survivorship visit. We reviewed his post transplant course and prior infections have now resolved. Blood counts have recovered and renal function at prior baseline. He has persistent neuropathy ongabapentin 200mg am, 100mg noon, 200mg pm. I'm setting him up for palliative consultation (previously followed by WILFREDO Olivia). He has a followup bone marrow biopsy scheduled with Dr. Hall in 3 days to document remission. I will discuss with him the plan after bone marrow biopsy--I briefly discussed Revlimidmaintenance with Mr. Mills and his . I will contact patient after bone marrow results to confirm plan with Dr. Hall and f/u with him in about 6 weeks with myeloma labs. 07/02/2020: Patsy has completed all of his pretransplant evaluation at [facility] including cardiology visit 11 9 which showed ejection fraction 60%. I have contacted Dr. Hall who noted that today will be his last day of Velcade and we will hold his daratumumab. He was to have a COVID-19 teston 07/11/2020 for planned stem cell collection 07/17 and transplant on 07/23. I clarified with the staff at [facility] this this may be performed at [facility] and forwarded to them. 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 His pain mainly in hips is about 3 out of 10 and controlled with Percocet. His next follow-up with me jaime be in about 4 months when he is post transplant although I am happy to see him sooner if new issues arise in his post transplant course that need to bemanaged closer to home. His most recent labs reveal improving hemoglobin (11.5), stable renal function (creatinine 1.35), normal calcium, and appropriateresponse of kappa light chain to now normal 18 with K/L ratio 2.02. 06/04/2020: Met with Dr. Hall on 05/24/2020 to discuss planning for high-dose chemotherapy peripheral blood stem cell transplant. He has now hemodialysis independent after daratumumab, dexamethasone, and Velcade with addition of Revlimid. Today he reports that he has had increased neuropathy symptoms in hisbilateral hands and feet with mild interference with activity (grade 2). We discussed a 25% dose reduction of Velcade on day 1, day 4, day 8, day 11 with current cycle of DVdR. He has some leg cramps at night, with normal magnesium, but low iron saturation noted--will start daily iron for symptoms. Otherwise heis tolerating therapy well and creatinine is now normal. He was given educationfor the transplant course and he is scheduled in late June after Thanksgiving to proceed with stem cell collection and transplant. I will communicate with Dr. Hall regarding end of therapy and in 1 month I will see him with follow-up myeloma studies. No other new concerns today. 05/07/2020: Patsy is here for 1 month follow-up. Outpatient hemodialysis was stopped after 04/24/2020 due to excellent response. He was evaluated by Dr. Quique Hall at [facility] on 04/26/2020. Angel and his note that Dr. Hall felt that he was physiologically about 8 years younger than his chronologic age and would likely be transplant eligible if pretransplant work-updeems this feasible. He recommended continuing current daratumumab and Velcade with low-dose Revlimid. He will reevaluate patient in 1 month and likely plan admission for stem cell collection, then high-dose chemotherapy/autologous stem cell transplantation in June or July. The patient's was concerned that she did not understand much of the pretransplant teaching and I explained to her and Don the pathophysiology of plasma cells, light chains, his improving trend of renal function, goal of 90% kappa/lambda ratio reduction prior to transplant. We also refilled Revlimid 5 mg every other day, weekly vitamin D, and I am giving him a trial of tramadol 50 mg every 12 hours as Tylenol is not effective for his pain and we are avoiding NSAIDs and additional aspirin. He otherwise has no toxicities of chemotherapy. He sees Dr. Heath for follow-up tomorrow and maintains insulin with stabilization of his blood sugars following with diabetes management clinic. I will see him in follow-up with myeloma labs in 1 month plan end of therapy prior to transplant. 04/09/2020: Here for one month f/u with his . He continues outpatient hemodialysis on Thursday//Saturdays. He notes fatigue, but generalized edema remarkably improved with no significant pain. I reviewed his M-spike, IgGand kappa light chains with K/L ratio that has remarkably improved (>90% reduction past month). [place] light chains decreased from 12,000 to 42. Only concernis significant hyperglycemia with dexamethasone. 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 I will coordinate evaluation by Dr. Quique Hall for HDC/autologous stem cell transplant evaluationand hold on adding Revlimid since significant response of light chains noted. Icontacted Dr. Rahman of nephrology to consider reducing hemodialysis days to twice weekly. I will send myeloma labs in about 4 weeks, have him see Dr. Gonzáles f/u with me the following week to review plan and determine whether plan forHDC/stem cell transplant. 03/14/2020: Patient presents with his today after initiating both outpatienthemodialysis on Thursday//Saturdays and initial cycle of daratumumab, bortezomib, dexamethasone with potential addition of Revlimid after 1 month if less than optimal response. He received his first cycle of combination chemotherapy 03/12/2020. --Patient tolerated initial daratumumab infusion reasonably well with brief infusion reaction (dizziness and mild wheezing) that was treated with diphenhydramine, steroids, albuterol, and Demerol for rigors. He completed remaining infusion in an outpatient bed on the inpatient [facility] Thursday and we anticipate further weekly daratumumab infusions as an outpatient. --Patient was seen at dialysis today and noted to have hemoglobin 6.8. He will receive 1 unit of packed red blood cells prior to Velcade today for scheduled tomorrow. His was unable to be present at the hospital at time of diagnosis and his initial bone marrow biopsy was performed on 03/08/2020. She requests evaluation with him today for extensive questions regarding his care. She reported her session and requested a copy of this progress note following our visit today. 1. She asked if all the tests at the hospital returned. We discussed the teststhat are used to follow-up myeloma including his elevated IgG, elevated free kappa light chains, and elevated M spike. We discussed in detail the pathophysiology of myeloma but she felt very anxious and overwhelmed and I reassured her that we will readdress this at further follow-up visits. 2. Patient had a metastatic bone survey showing no areas of lytic disease or pathologic fractures. We discussed CRAB criteria for multiple myeloma diagnosisand that he meets criteria of R renal and A anemia, but not elevated calcium or bone disease (C and B). She specifically asked is stage of multiple myeloma andwe noted that he still will require beta-2 glycoprotein (ISS) but is most consistent with stage III. We are still awaiting his chromosomal abnormalities by fluorescence in situ hybridization and will readdress at next follow-up visitwith his final bone marrow biopsy results (this study was only performed 03/08/2020). 3. She wanted to know if his testing showed cancer elsewhere. We discussed that since metastatic bone survey showed more lytic areas I do not feel that F-18 PET is high priority but this may be ordered at some point to assess for any asymptomatic bony metastatic disease. 4. He has recently had elevated blood sugars and does not have a history of diabetes, but we discussed that with weekly steroids he should likely have additional insulin on his steroid days. I offered that this could be managed byhis primary physician Dr. Heath and he could be referred for diabetes management clinic. 5. We reiterated multiple times that his schedule may be variable. He will typically have a long infusion on Mondays with daratumumab but initially he willpresent twice weekly for Velcade injection on Mondays and . This will change during the course of his therapy and he should refer to his calendar. 6. We discussed not taking additional vitamins unless approved by nephrology. I also discussed potentially adding Revlimid and we will address at future visits if this is needed based on his follow-up labs ordered 04/02/2020. His medications may be filled either locally or with his prescription plan, but many ofthese will be ordered by nephrology. He is to continue vitamin D2 as recommended by nephrology. Blood pressure medications will be regulated by primary care and nephrology. 7. We discussed concerning side effects, most commonly hyperglycemia, insomnia,risk of thrombosis (recently was diagnosed with left superficial thrombosis of the left upper extremity and additional heparin is given with his dialysis), andneuropathy with Velcade. Patients do not tend to have significant nausea or possible appetite (effects of dexamethasone increase his appetite). I cannot recommend medical marijuana and would discuss this with his pre coder whetherthis would interfere with dialysis. We will also follow closely for cytopenias and reviewed infectious precautions. He has a son from [place] who plans to visit on Thursday and we discussed COVID-19 testing appropriate social isolation protocols. 8. We discussed whether he was eligible for transplant and this will be evaluated based on his response and overall health in likely 3 to 4 months afterinitiation of therapy. We did not discuss autologous stem cell transplant in detail. We did discuss that although this is not curative therapy, many patients are controlled with medication over longer periods of time (often 5 to 6 years) with appropriate therapy. It is an aggressive cancer due to its significant infectious risk and association with renal failure. 9. Exercise may be performed as tolerated but should be done in moderation and likely we should wait a few weeks for more significant exercise given his recentdialysis and initiation of chemotherapy. I did not specifically address his diet but he may address this with our [facility] nutrition team. He will also receivechemotherapy class with our nurses in the infusion center. PRELIMINARY HISTORY (from initial consult 03/08/2020): This is a 75-year-old male who was transferred from [place] emergency room by [facility] due to critical potassium 8.7 with elevated creatinine 11.2 and BUN 82 on 03/04/2020. We do not have any recent blood work for comparison but he hadnormal creatinine in 2011. He was urgently treated for his hyperkalemia and dialysis was arranged emergently by nephrology team. He has now stabilized on dialysis and had extensive work-up for etiology of his acute renal failure with severe anemia felt to be due to anemia of renal insufficiency. Iron studies returned normal with ferritin 160, but B12 low at 84 and folate low normal at 5.2. He is receiving appropriate B12 repletion. The patient reports that he has had a prolonged period of fatigue up to a year and has decreased appetite with subjective weight loss. He denies any significant bone pain other than pain in his right shoulder and has no prior falls or recurrent back pain. He had a shoulder film showing labral pathology of the joint but no fracture or dislocation. Myeloma labs were sent showing M spike 3.6 g/dL with serum immunofixation showing IgG kappa light chain specificity. Serum IgG markedly elevated at 5312 and free kappa light chain 12,649.9 with normal free lambda light chain 11.94 free kappa/lambda ratio 1063. Hepatitis A, B, and C serologies were all negative and COVID-19 screening was negative. LORE, c-ANCA, p-ANCA, anti-GBM, and antimyeloperoxidase were all negative. Clinically the patient has multiple myeloma and I explained that we needed to proceed with bone marrow aspiration and biopsy to provide baseline for diagnosis and to expedite chemotherapy with an aggressive regimen to reduce his light chains. I will review information with him at noon today around the time of his bone marrow biopsy for combinationdaratumumab 16 mg/kg IV weekly, bortezomib 1.3 mg/kg subcu twice weekly, dexamethasone 40 mg weekly, and Revlimid 25 mg p.o. daily days 1 through 14 of each 21-day cycle. Revlimid will be ordered through a special pharmacy. We will schedule his infusions as an outpatient early next week on his nondialysis days. Written literature for these medications will be provided and he may signinformed consent so that we may order this regimen as an outpatient. The patient's is not with him today but has been treated by me for breast cancer in the past and had multiple questions. We would like to arrange a time for her to be available to ask questions and be present for chemo consent, possibly around noon today. This will need to be coordinated with nursing staffdue to COVID-19 visitor restriction policy. - Summary of Therapies Summary of Therapies: Cycle 1 day 1 03/12/2020: Daratumumab 16 mg/kg IV weekly, bortezomib 1.3 mg/kg subcu twice weekly, dexamethasone 40 mg weekly. 04/09/2020: Under direction of Dr. Hall, in early April we added Revlimid 5 mg every other day of each 21-day cycle with cycle 2 due to excellent response of kappa light chains. 04/26/2020: Malignant hematology eval for possible high-dose chemotherapy/autologous stem cell transplant. He was able to stop dialysis 04/24/2020. Given Velcade only (hold daratumumab) on 07/02/2020. 07/25/2020: Melphalan 100mg/m2 IV day 0 autologous stem cell transplant 07/25/2020at [facility]. ROS Details: All systems reviewed & no additional complaints except as documented Subjective/ROS - Narrative: CONSTITUTIONAL: Positive for fatigue (improved since HD Melphalan/ASCT), negative for fever or night sweats. Post-transplant infections as per HPI, now resolved. HEAD AND NECK: Improvement of prior blurred vision since control of his diabetesmellitus. Negative for changes in hearing. Negative for mouth ulcers, nasal congestion and nasal drainage. PULMONARY: Negative for chest pain, cough and dyspnea. CARDIOVASCULAR: Negative for claudication and irregular heartbeat/palpitations. Resolved edema since diagnosis, now off dialysis. GASTROINTESTINAL: Negative for abdominal pain, constipation, diarrhea, nausea orvomiting. Improved appetite and stable 20 kg weight loss after starting dialysis, chemotherapy, and transplant for light chain nephropathy. GENITOURINARY: Negative for dysuria and hematuria. Patient now with improved urinary output, diagnosed in February 2020 with renal failure requiring dialysis--offdialysis 04/24/2020. Prior nephrolithiasis previously followed by Dr. Seals. ENDOCRINE: Negative for cold intolerance and heat intolerance. Improvement of prior hyperglycemia with home blood sugars in the 100-200s on supplemental insulin glargine. CENTRAL NERVOUS SYSTEM: Negative for gait disturbance and headache. No focal neurologic deficits or history of stroke. Positive for painful sensory neuropathy in legs, worse after transplant. PSYCHIATRIC: Negative for anxiety or depression. DERMATOLOGICAL: Negative for pruritus and rash. Negative for suspicious skin lesions. MUSCULOSKELETAL: Positive for back pain and and thigh pain for the past few weeks. Positive for leg cramps. Added ferrous sulfate once daily for iron saturation 11%. Added tramadol 50 mg every 6 hours as needed 05/07/2020. HEMATOLOGICAL: Negative for bleeding and easy bruising. Negative for history of transfusion (other than 1 unit packed red blood cells prior admission). Positive for left basilic vein thrombus on Doppler ultrasound 03/12/2020. ALLERGY: Negative for environmental allergies and food allergies. [facility] - History Attestation statement: The following information was validated with the patient. Source: Old Records Reviewed - Medical History Medical History: Medical History (Last Reviewed 10/15/20 @ 22:26 by Brook Huddleston MD) Apnea Arthritis Diabetes mellitus, type 2 Hyperlipidemia Hypertension Kidney stones Skin cancer - Family History Family History: Family History (Last Reviewed 10/15/20 @ 22:26 by Brook Huddleston MD) Sister Myocardial infarct Mother Myocardial infarct Father Skin cancer - Social History Smoking Status: Former smoker Tobacco Type: cigarettes Substance Use Type: None Home Medications & Allergies Allergies No Known Allergies Allergy (Verified 03/04/20 08:33) Home Medications famotidine 20 mg PO DAILY #30 tab 03/10/20 [Rx Confirmed 10/15/20] zolpidem [Ambien] 5 mg PO QHS 20 Days #20 tab 03/11/20 [Rx Confirmed 10/15/20] acetaminophen [Tylenol] 650 mg PO DAILY PRN 04/27/20 [History Confirmed 10/15/20] insulin glargine [Lantus Solostar U-100 Insulin] 12 unit SUBCUT DAILY 04/27/20 [History Confirmed 10/15/20] insulin lispro [Humalog KwikPen Insulin] 6 - 16 unit SUBCUT DIRECTED 04/27/20[History Confirmed 10/15/20] hydralazine 25 mg PO BID 07/02/20 [History Confirmed 10/15/20] acyclovir 400 mg PO BID 10/15/20 [History Confirmed 10/15/20] atorvastatin 20 mg PO DAILY 10/15/20 [History Confirmed 10/15/20] cholecalciferol (vitamin D3) [Vitamin D3] 50 mcg PO DAILY 10/15/20 [History Confirmed 10/15/20] furosemide 20 mg PO DAILY 10/15/20 [History Confirmed 10/15/20] gabapentin 100 mg PO DAILY 10/15/20 [History Confirmed 10/15/20] loperamide [Imodium] 2 mg PO QID PRN 10/15/20 [History Confirmed 10/15/20] potassium chloride 20 meq PO DAILY 10/15/20 [History Confirmed 10/15/20] sulfamethoxazole-trimethoprim [Bactrim DS] 1 tab PO BID 10/15/20 [History Confirmed 10/15/20] tramadol 50 mg PO DAILY PRN 10/15/20 [History Confirmed 10/15/20] Objective - Height/Weight Height/Weight: Height 5 ft 11 in Weight 84.368 kg BSA for Today's Weight 2.10 - Vital Signs Vital Signs: 10/15/20 10:17 Pulse Rate [Monitor] 86 Respiratory Rate 20 Blood Pressure [Left Arm] 152/76 H 02 Sat by Pulse Oximetry 98 - Pain Right Hip Pain Intensity: 5 Generalized Pain Intensity: 1 Left Upper Arm Pain Intensity: 4 - Emotional Needs Assessment Emotional Needs Assessment: Emotional Needs Identified? No Physical Exam Narrative: CONSTITUTIONAL: The patient is in no acute distress. No longer appears fatigued. HEAD / FACE: Normocephalic. EYES: Pupils are equal and reactive to light. Conjunctivae and lids are benign in appearance. Ocular movement intact. EARS: Hearing grossly intact. NOSE / MOUTH / THROAT: Nose, mouth, tongue and oropharynx are benign in appearance. No signs of inflammation. NECK / THYROID: Neck is supple. Thyroid is symmetrical, without thyromegaly, masses or palpable nodules. LYMPHATIC: No palpable cervical, supraclavicular, axillary, or inguinal adenopathy. RESPIRATORY: Normal to inspection. Lungs clear to auscultation and percussion. No wheezing, rales, rhonchi or rubs. Normal effort. CARDIOVASCULAR: Regular rate and rhythm. No murmurs, gallops, or rubs. VASCULAR: Carotid, radial, femoral and pedal pulses present bilaterally. No bruits. ABDOMEN: Bowel sounds normoactive. Soft, nontender and non-distended. No hepatosplenomegaly. No masses. GENITOURINARY: No CVA tenderness. No suprapubic fullness or tenderness. No groinadenopathy. No evidence of hernias. INTEGUMENTARY: The skin is unremarkable. No rashes. No suspicious lesions BACK / SPINE: The back is nontender. No step-off deformity. No CVA tenderness. MUSCULOSKELETAL: Normal musculature, no joint deformities or abnormalities, normal range of motion for all four extremities. EXTREMITIES: No longer has bilateral lower extremity edema; no cyanosis or clubbing. No Vitor sign. NEUROLOGICAL: Alert and oriented. Cranial nerves intact. No gross motor deficits. Numbness bilateral feet due to neuropathy. PSYCHIATRIC: No anxiety or evidence of depression. - ECOG Performance Status ECOG Score: 1 Results - Labs Labs: Diagram of Most Recent CBC and CMP 10/08/20 10:02 10/08/20 10:02 Labs - Last 7 Days 10/08/20 10:02: Ur Random Albumin 48.3, U Random Total Protein 4.7, U Kgdjz-8-Qohfthvx (%) 7.2, U Random w-2-Fyypybrh % 11.5, U Random b-Globulin % 12.0, U Random Gamma Glob % 21.1, U Random M-Anselmo (%) Not observed, Urine Random PEP Note , Urine Immunofixation 10/08/20 10:02: Serum Total Protein 5.9 L, Albumin (Send Out) 3.4, Globulin (PEP) 2.5, Albumin/Globulin (PEP) 1.4, Zntrx-3-Jmsmbqdmi 0.2, Emmuf-0-Xojsodsru 0.9, Beta Globulins 0.9, Gamma Globulins 0.5, M-Anselmo Not observed, PEP Note , IgG 525 L, IgA 56 L, IgM 16, Serum Immunofixation , Free [place] LC, Quant 8.7, Free Lambda LC, Quant 3.9 L, Free [place]/Lambda Ratio 2.23 H 10/08/20 10:02: PHA Creatinine Clear 77.25, Sodium 133 L, Potassium 4.5, Chloride 99, Carbon Dioxide 22.9, BUN 16, Creatinine 0.88, Est GFR ( Amer) > 60, Est GFR (Non-Af Amer) > 60, Glucose 310 H, Calcium 9.2, Total Bilirubin 0.6, AST 15, ALT 19, Alkaline Phosphatase 83, Lactate Dehydrogenase 154, Total Protein 5.6 L, Albumin 3.6, Globulin 2.0, Albumin/Globulin Ratio 1.8 10/08/20 10:02: Corrected WBC 5.0, Uncorrected WBC Count 5.0, RBC 3.22 L, Hgb 11.4 L, Hct 32.8 L, MCV 101.9 H, MCH 35.6 H, MCHC 34.9, RDW 20.2 H, Plt Count 195, MPV 7.6, Neut % (Auto) 79.2, Lymph % (Auto) 11.3, [place] % (Auto) 6.7, Eos % (Auto) 2.5, Baso % (Auto) 0.3, Neut # (Auto) 4.0, Lymph # (Auto) 0.6 L, [place] # (Auto) 0.3, Eos # (Auto) 0.1, Baso # (Auto) 0.0, Nucleated RBC % (auto) 0.2 - Impressions No new imaging for review. 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 He has marked elevation in IgG kappa on initial laboratory work-up for renal failure in February 2020. He has remained hemodynamically stable and I discussed in detail with the patient the pathophysiology of multiple myeloma and associated injury to kidneys, persistentanemia, bone disease, and potential hypercalcemia (we do not see hypercalcemia in this patient). He consented to inpatient bone marrow biopsy 03/08/2020 which was diagnostic for multiple myeloma--70% plasma cells without amyloid depositionidentified in small marrow specimen. Normal baseline skeletal survey. I reviewed pathophysiology of myeloma, results of bone marrow biopsy, skeletal survey, and myeloma labs with the patient and his . Patsy consented to begin first cycle Daratumumab, Velcade, and dexamethasone on03/12/2020--other than infusion reaction from first Daratumumab, improved with symptomatic therapy. I reviewed his case with Dr. Quique Hall of [facility]--we added Revlimid 5mg every other day following significant reduction of light chains--this was started in early April. 05/07/2020: As per HPI, Angel and his met with Dr. Hall 04/26/2020 with preparation for likely high-dose chemotherapy/autologous peripheral stem cell transplant if he meets criteria based on cardiopulmonary work-up. He has had greater than 90%. The patient was able to discontinue hemodialysis on 04/24/2020 and has not had any recurrence of edema with now improved renal function, creatinine clearance now 53. --I will continue current therapy with further evaluation by Dr. Hall in 1 month for planning his HDC/autologous stem cell transplant. We will send repeatmyeloma labs (SPEP, IgG, kappa/lambda light chains) in 4 weeks with f/u visit with me the following week to review results as well as evaluation with Dr. Hall for possible stem cell transplant. 06/04/2020: Tolerating chemotherapy well other than increasing neuropathy of hands and feet. I will dose reduce Velcade by 25% next cycle. Likely hold therapy after mid Nov for planned stem cell harvest and transplant planning. I will contact Dr. Hall for planned timing. F/u with me in one month. Add dailyferrous sulfate. --He was referred to diabetes management clinic and sees Dr. Heath with regularfollow-up by Dr. Rahman since he is off dialysis. Diabetes control improved. 07/02/2020: Last dose of Velcade today. Neuropathy is stable and pain is well controlled. He will have COVID-19 test on 07/11/2020 for planned admission for stem cell collection on 07/17/2020 then high-dose melphalan followed by peripheral blood stem cell transplant day 0 scheduled 07/23/2020. His next follow-up with me will be in about 4 months after he is completed day 100 transplant follow-up. He may return sooner as needed. 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 Melphalan 100mg/m2 + ASCT Day 0 07/25/2020. End of therapy bone marrow biopsy . Reviewed survivorship recommendations from Evaluation with Dr. Hall last week. He will be due for first post transplant vaccines in 6 months. We will discuss resuming Revlimid maintenance based on bone marrow biopsy results. Next followup with me in 6 weeks to review bone marrow biopsy and f/u myeloma labs. Referring back to palliative medicine for ongoing management of painful neuropathy. Has f/u with nephrology next week. This is a moderate complexity visit over 30 minutes for symptom review and coordination of care with tertiary malignant hematology evaluation last week , and review of laboratories/further plan for therapy, and ongoing counseling treatment course with patient and his . (2) Chemotherapy-induced peripheral neuropathy 25% dose reduction Velcade prior to stem cell transplant due to reports of increased pain from neuropathy in fingers and feet. Worsening symptoms after transplant, referring back to palliative medicine for further management. Gabapentin 200mg/100mg/200mg each day. (3) Iron deficiency anemia Prior leg cramps with low iron saturation. Ferritin inappropriately normal due to inflammation from myeloma. Daily oral iron added due to symptomatic leg cramps and persistent anemia. Recheck iron studies at 6 week f/u visit. (4) History of hemodialysis Initiated inpatient hemodialysis 02/2020, then transitioned to outpatient hemodialysis 3 times weekly Thursday//Thursday schedule. Chemotherapy given Thursday/. 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 He was actually able to stop dialysis within 2 months with the last session 04/24/2020 as noted above. High-dose chemotherapy with autologous stem cell transplant was offered by Dr. Hall met at [facility] based on his good physiologic health despite his advanced age if cardiopulmonary work-up for this is suitable. For now we will give last dose Velcade (with 25% DR for neuropathy), dexamethasone today--holding daratumumab per Dr. Hall's request. Now D+83 after Melphalan 100mg/m2 + autologous PBSCT in early July given hissignificant response to initial myeloma directed therapy. Continued f/u with nephrology post transplant. (5) Steroid-induced diabetes mellitus Qualifiers: Encounter type: subsequent encounter Qualified Code(s): E09.9 - Drug or chemical induced diabetes mellitus without complications; T38.0X5D - Adverse effect of glucocorticoids and synthetic analogues, subsequent encounter Patsy had an excellent response of light chains but was noted to have significant hyperglycemia 300-500 fasting blood sugars. He was referred to diabetes management clinic with addition of insulin therapy that has significantly improved control of his blood sugars. Patient also had remarked onsome blurred vision that improved with control of blood sugars. Continue follow-up of blood sugars during admission for transplant in early July. Increased peripheral neuropathy complaints in bilateral hands and feet after 25%dose reduction of Velcade and worsening post transplant. (6) B12 deficiency Patient was found to have B12 deficiency and was been placed on daily B12 prior to hospital discharge. We continued weekly IM B12 for 8 weeks with his myeloma regimen. Hemoglobin is improved on Aranesp and weekly B12, then changed to monthly maintenance therapy. He has not required further blood transfusions since 03/15/2020. Follow- up methylmalonic acid on 04/30/2020 was normal showing adequate replacement. He will continue monthly IM B12 and weekly vitamin D2 therapy 50,000 units orally for low 25 hydroxy vitamin D stores. He may take supplemental calcium once daily. (7) Encounter for chemotherapy management Started cycle 1 day 1 03/12/2020: Daratumumab 16 mg/kg IV weekly, bortezomib 1.3 mg/kg subcu twice weekly, dexamethasone 40 mg weekly. We added Revlimid 5 mg every other day of each 21-day cycle with cycle 2 due to excellent reduction of kappa light chains (recommended by Dr. Hall [facility]). 06/04/2020: 25% Bortezumab (100% all other meds) due to worsening neuropathy. Last dose of 4009 07/02/2020) and holding daratumumab per request of Dr. Hall. P 07/25/2020: Melphalan 100mg/m2 + autologous PBSCT--consider Revlimid maintenanceafter bone marrow biopsy. - Chemo Plan Chemo Plan (Dose, Rate, Freq): 07/25/2020: Melphalan 100mg/m2 + autologous PBSCT--consider Revlimid maintenanceafter bone marrow biopsy. Goal of Treatment: Control - Time with Patient Time Spent with Patient (Follow Up Visit): 35 minutes Coordination of Care & Counseling Time: Greater than 50% of time spent with patient was for coordination of care (as documented) and [id number] counseling of patient and/or family. Dictated By: Brook Huddleston MD DD/ [id number] Signed By: <Electronically signed by MD Brook Huddleston> 10/15/20 [address] [facility] Work Phone: [phone] Progress note Author Brook Huddleston [facility] July 02, 2020 10:43am Note Date/Time July 02, 2020 9:04am [facility] [place] [address] Hem/Onc Follow Up Note - OP Signed Patient: Patsy Mills MR#: [id number] : 1945 Acct:[id number] Age/Sex: 75 / M Type: REG RCR Copies to: MD Helen Jaramillo MD~ Subjective Date/Time of Service: Date of Service: 07/02/2020 Time of Service: 09:04 Chief Complaint: Patient is here for one month follow up, lab work drawn today. Patient is scheduled for transplant on Jul 13. Patient is scheduled for treatment today. Patient has lost 10lbs since last visit. HPI: 07/02/2020: Patsy has completed all of his pretransplant evaluation at [facility] including cardiology visit 11 which showed ejection fraction 60%. I have contacted Dr. Hall who noted that today will be his last day of Velcade and we will hold his daratumumab. He was to have a COVID-19 teston 07/11/2020 for planned stem cell collection 07/17 and transplant on 07/23. I clarified with the staff at [facility] this this may be performed at [facility] and forwarded to them. 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 His pain mainly in hips is about 3 out of 10 and controlled with Percocet. His next follow-up with me jaime be in about 4 months when he is post transplant although I am happy to see him sooner if new issues arise in his post transplant course that need to bemanaged closer to home. His most recent labs reveal improving hemoglobin (11.5), stable renal function (creatinine 1.35), normal calcium, and appropriateresponse of kappa light chain to now normal 18 with K/L ratio 2.02. 06/04/2020: Met with Dr. Hall on 05/24/2020 to discuss planning for high-dose chemotherapy peripheral blood stem cell transplant. He has now hemodialysis independent after daratumumab, dexamethasone, and Velcade with addition of Revlimid. Today he reports that he has had increased neuropathy symptoms in hisbilateral hands and feet with mild interference with activity (grade 2). We discussed a 25% dose reduction of Velcade on day 1, day 4, day 8, day 11 with current cycle of DVdR. He has some leg cramps at night, with normal magnesium, but low iron saturation noted--will start daily iron for symptoms. Otherwise heis tolerating therapy well and creatinine is now normal. He was given educationfor the transplant course and he is scheduled in late June after [facility] to proceed with stem cell collection and transplant. I will communicate with Dr. Hall regarding end of therapy and in 1 month I will see him with follow-up myeloma studies. No other new concerns today. 05/07/2020: Patsy is here for 1 month follow-up. Outpatient hemodialysis was stopped after 04/24/2020 due to excellent response. He was evaluated by Dr. Small at [facility] on 04/26/2020. Angel and his note that Dr. Hall felt that he was physiologically about 8 years younger than his chronologic age and would likely be transplant eligible if pretransplant work-up deems this feasible. He recommended continuing current daratumumab and Velcade with low-dose Revlimid. He will reevaluate patient in 1 month and likely plan admission for stem cell collection, then high-dose chemotherapy/autologous stem cell transplantation in June or July. The patient's was concerned that she did not understand much of the pretransplant teaching and I explained to her and Don the pathophysiology of plasma cells, light chains, his improving trend of renal function, goal of 90% kappa/lambda ratio reduction prior to transplant. We also refilled Revlimid 5 mg every other day, weekly vitamin D, and I am giving him a trial of tramadol 50 mg every 12 hours as Tylenol is not effective for his pain and we are avoiding NSAIDs and additional aspirin. He otherwise has no toxicities of chemotherapy. He sees Dr. Heath for follow-up tomorrow and maintains insulin with stabilization of his blood sugars following with diabetes management clinic. I will see him in follow-up with myeloma labs in 1 month plan end of therapy prior to transplant. 04/09/2020: Here for one month f/u with his . He continues outpatient hemodialysis on Thursday//Saturdays. He notes fatigue, but generalized edema remarkably improved with no significant pain. I reviewed his M-spike, IgGand kappa light chains with K/L ratio that has remarkably improved (>90% reduction past month). [place] light chains decreased from 12,000 to 42. Only concern is significant hyperglycemia with dexamethasone. 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 I will coordinate evaluation by Dr. Quique Hall for HDC/autologous stem cell transplantevaluation and hold on adding Revlimid since significant response of light chains noted. I contacted Dr. Rahman of nephrology to consider reducing hemodialysis days to twice weekly. I will send myeloma labs in about 4 weeks, have him see Dr. Hall and f/u with me the following week to review plan and determine whether plan for HDC/stem cell transplant. 03/14/2020: Patient presents with his today after initiating both outpatienthemodialysis on Thursday//Saturdays and initial cycle of daratumumab, bortezomib, dexamethasone with potential addition of Revlimid after 1 month if less than optimal response. He received his first cycle of combination chemotherapy 03/12/2020. --Patient tolerated initial daratumumab infusion reasonably well with brief infusion reaction (dizziness and mild wheezing) that was treated with diphenhydramine, steroids, albuterol, and Demerol for rigors. He completed remaining infusion in an outpatient bed on the inpatient [facility] Thursday and we anticipate further weekly daratumumab infusions as an outpatient. --Patient was seen at dialysis today and noted to have hemoglobin 6.8. He will receive 1 unit of packed red blood cells prior to Velcade today for scheduled tomorrow. His was unable to be present at the hospital at time of diagnosis and his initial bone marrow biopsy was performed on 03/08/2020. She requests evaluation with him today for extensive questions regarding his care. She reported her session and requested a copy of this progress note following our visit today. 1. She asked if all the tests at the hospital returned. We discussed the teststhat are used to follow-up myeloma including his elevated IgG, elevated free kappa light chains, and elevated M spike. We discussed in detail the pathophysiology of myeloma but she felt very anxious and overwhelmed and I reassured her that we will readdress this at further follow-up visits. 2. Patient had a metastatic bone survey showing no areas of lytic disease or pathologic fractures. We discussed CRAB criteria for multiple myeloma diagnosisand that he meets criteria of R renal and A anemia, but not elevated calcium or bone disease (C and B). She specifically asked is stage of multiple myeloma andwe noted that he still will require beta-2 glycoprotein (ISS) but is most consistent with stage III. We are still awaiting his chromosomal abnormalities by fluorescence in situ hybridization and will readdress at next follow-up visitwith his final bone marrow biopsy results (this study was only performed 03/08/2020). 3. She wanted to know if his testing showed cancer elsewhere. We discussed that since metastatic bone survey showed more lytic areas I do not feel that F-18 PET is high priority but this may be ordered at some point to assess for any asymptomatic bony metastatic disease. 4. He has recently had elevated blood sugars and does not have a history of diabetes, but we discussed that with weekly steroids he should likely have additional insulin on his steroid days. I offered that this could be managed byhis primary physician Dr. Heath and he could be referred for diabetes management clinic. 5. We reiterated multiple times that his schedule may be variable. He will typically have a long infusion on Mondays with daratumumab but initially he willpresent twice weekly for Velcade injection on Mondays and . This will change during the course of his therapy and he should refer to his calendar. 6. We discussed not taking additional vitamins unless approved by nephrology. I also discussed potentially adding Revlimid and we will address at future visits if this is needed based on his follow-up labs ordered 04/02/2020. His medications may be filled either locally or with his prescription plan, but manyof these will be ordered by nephrology. He is to continue vitamin D2 as recommended by nephrology. Blood pressure medications will be regulated by primary care and nephrology. 7. We discussed concerning side effects, most commonly hyperglycemia, insomnia,risk of thrombosis (recently was diagnosed with left superficial thrombosis of the left upper extremity and additional heparin is given with his dialysis), andneuropathy with Velcade. Patients do not tend to have significant nausea or possible appetite (effects of dexamethasone increase his appetite). I cannot recommend medical marijuana and would discuss this with his pre coder whetherthis would interfere with dialysis. We will also follow closely for cytopenias and reviewed infectious precautions. He has a son from [place] who plans to visit on Thursday and we discussed COVID-19 testing appropriate social isolation protocols. 8. We discussed whether he was eligible for transplant and this will be evaluated based on his response and overall health in likely 3 to 4 months afterinitiation of therapy. We did not discuss autologous stem cell transplant in detail. We did discuss that although this is not curative therapy, many patients are controlled with medication over longer periods of time (often 5 to 6 years) with appropriate therapy. It is an aggressive cancer due to its significant infectious risk and association with renal failure. 9. Exercise may be performed as tolerated but should be done in moderation and likely we should wait a few weeks for more significant exercise given his recentdialysis and initiation of chemotherapy. I did not specifically address his diet but he may address this with our [facility] nutrition team. He will also receivechemotherapy class with our nurses in the infusion center. PRELIMINARY HISTORY (from initial consult 03/08/2020): This is a 75-year-old male who was transferred from [place] emergency room by [facility] due to critical potassium 8.7 with elevated creatinine 11.2 and BUN 82 on 03/04/2020. We do not have any recent blood work for comparison but he hadnormal creatinine in 2012. He was urgently treated for his hyperkalemia and dialysis was arranged emergently by nephrology team. He has now stabilized on dialysis and had extensive work-up for etiology of his acute renal failure with severe anemia felt to be due to anemia of renal insufficiency. Iron studies returned normal with ferritin 160, but B12 low at 84 and folate low normal at 5.2. He is receiving appropriate B12 repletion. The patient reports that he has had a prolonged period of fatigue up to a year and has decreased appetite with subjective weight loss. He denies any significant bone pain other than pain in his right shoulder and has no prior falls or recurrent back pain. He had a shoulder film showing labral pathology of the joint but no fracture or dislocation. Myeloma labs were sent showing M spike 3.6 g/dL with serum immunofixation showing IgG kappa light chain specificity. Serum IgG markedly elevated at 5312 and free kappa light chain 12,649.9 with normal free lambda light chain 11.94 free kappa/lambda ratio 1063. Hepatitis A, B, and C serologies were all negative and COVID-19 screening was negative. LORE, c-ANCA, p-ANCA, anti-GBM, and antimyeloperoxidase were all negative. Clinically the patient has multiple myeloma and I explained that we needed to proceed with bone marrow aspiration and biopsy to provide baseline for diagnosis and to expedite chemotherapy with an aggressive regimen to reduce his light chains. I will review information with him at noon today around the time of his bone marrow biopsy for combinationdaratumumab 16 mg/kg IV weekly, bortezomib 1.3 mg/kg subcu twice weekly, dexamethasone 40 mg weekly, and Revlimid 25 mg p.o. daily days 1 through 14 of each 21-day cycle. Revlimid will be ordered through a special pharmacy. We will schedule his infusions as an outpatient early next week on his nondialysis days. Written literature for these medications will be provided and he may sign informed consent so that we may order this regimen as an outpatient. The patient's is not with him today but has been treated by me for breast cancer in the past and had multiple questions. We would like to arrange a time for her to be available to ask questions and be present for chemo consent, possibly around noon today. This will need to be coordinated with nursing staffdue to COVID-19 visitor restriction policy. - Summary of Therapies Summary of Therapies: Cycle 1 day 1 03/12/2020: Daratumumab 16 mg/kg IV weekly, bortezomib 1.3 mg/kg subcu twice weekly, dexamethasone 40 mg weekly. 04/09/2020: Under direction of Dr. Hall, in early April we added Revlimid 5 mg every other day of each 21-day cycle with cycle 2 due to excellent response of kappa light chains. 04/26/2020: Malignant hematology eval for possible high-dose chemotherapy/autologous stem cell transplant. He was able to stop dialysis 04/24/2020. Given Velcade only (hold daratumumab) on 07/02/2020. 07/17/2020: Stem cell collection scheduled this day then should have high-dose melphalan with day 0 autologous stem cell transplant 07/23/[address] [facility]. ROS Details: All systems reviewed & no additional complaints except as documented Subjective/ROS - Narrative: CONSTITUTIONAL: Positive for fatigue at least 1 year (this has improved since starting therapy), negative for fever or night sweats. No recent infections. HEAD AND NECK: Improvement of prior blurred vision since control of his diabetesmellitus--over the past 3 months with improving glucose control. Negative for changes in hearing. Negative for mouth ulcers, nasal congestion and nasal drainage. PULMONARY: Negative for chest pain, cough and dyspnea. CARDIOVASCULAR: Negative for claudication and irregular heartbeat/palpitations. Resolved edema since diagnosis, now off dialysis. GASTROINTESTINAL: Negative for abdominal pain, constipation, diarrhea, nausea orvomiting. Positive for decreased appetite and 10 kg weight loss after starting dialysis and chemotherapy for light chain nephropathy. --Another 10 kg weight loss noted over the last 6 weeks. GENITOURINARY: Negative for dysuria and hematuria. Patient now with improved urinary output, diagnosed in February 2020 with renal failure requiring dialysis--off dialysis 04/24/2020. Prior nephrolithiasis previously followed by Dr. Seals. ENDOCRINE: Negative for cold intolerance and heat intolerance. Improvement of prior hyperglycemia with home blood sugars in the 200s to 300s range--now 100-200s on supplemental insulin glargine. CENTRAL NERVOUS SYSTEM: Negative for gait disturbance and headache. No focal neurologic deficits or history of stroke. PSYCHIATRIC: Negative for anxiety or depression. DERMATOLOGICAL: Negative for pruritus and rash. Negative for suspicious skin lesions. MUSCULOSKELETAL: Positive for back pain and and thigh pain for the past few weeks. Positive for leg cramps. Added ferrous sulfate once daily for iron saturation 11%. Added tramadol 50 mg every 6 hours as needed 05/07/2020. HEMATOLOGICAL: Negative for bleeding and easy bruising. Negative for history of transfusion (other than 1 unit packed red blood cells prior admission). Positive for left basilic vein thrombus on Doppler ultrasound 03/12/2020. ALLERGY: Negative for environmental allergies and food allergies. PMF - History Attestation statement: The following information was validated with the patient. Source: Old Records Reviewed - Medical History Medical History: Medical History (Last Reviewed 07/02/20 @ 09:57 by Brook Huddleston MD) Apnea Arthritis Diabetes mellitus, type 2 Hyperlipidemia Hypertension Kidney stones Skin cancer - Family History Family History: Family History (Last Reviewed 07/02/20 @ 09:57 by Brook Huddleston MD) Sister Myocardial infarct Mother Myocardial infarct Father Skin cancer - Social History Smoking Status: Former smoker Tobacco Type: cigarettes Substance Use Type: None Home Medications & Allergies Allergies No Known Allergies Allergy (Verified 03/04/20 08:33) Home Medications docusate sodium [DOK] 100 mg PO BID #30 cap 03/10/20 [Rx Confirmed 07/02/20] famotidine 20 mg PO DAILY #30 tab 03/10/20 [Rx Confirmed 07/02/20] furosemide 40 mg PO BID@0800,1600 #60 tab 03/10/20 [Rx Confirmed 07/02/20] rosuvastatin [Crestor] 5 mg PO DAILY #30 tab 03/10/20 [Rx Confirmed 07/02/20] zolpidem [Ambien] 5 mg PO QHS 20 Days #20 tab 03/11/20 [Rx Confirmed 07/02/20] acetaminophen [Tylenol] 650 mg PO DAILY PRN 04/27/20 [History Confirmed 07/02/20] aspirin [Aspirin Low Dose] 81 mg PO DAILY 04/27/20 [History Confirmed 07/02/20] insulin glargine [Lantus Solostar U-100 Insulin] 28 unit SUBCUT DAILY 04/27/20 [History Confirmed 07/02/20] insulin lispro [Humalog KwikPen Insulin] 6 - 16 unit SUBCUT DIRECTED 04/27/20[History Confirmed 07/02/20] insulin NPH isoph U-100 human [Humulin N NPH U-100 Insulin] 30 unit SUBCUT DIRECTED 05/07/20 [History Confirmed 07/02/20] oxycodone-acetaminophen [Percocet] 1 tab PO Q4H PRN 05/30/20 [History Confirmed 07/02/20] ferrous sulfate 325 mg PO DAILY 07/02/20 [History Confirmed 07/02/20] hydralazine 25 mg PO BID 07/02/20 [History Confirmed 07/02/20] zinc 50 mg PO DAILY 07/02/20 [History Confirmed 07/02/20] Objective - Height/Weight Height/Weight: Height 5 ft 11 in Weight 87.997 kg BSA for Today's Weight 2.17 - Vital Signs Vital Signs: 07/02/20 08:53 Temperature 97.4 F L Pulse Rate [Monitor] 90 Respiratory Rate 18 Blood Pressure [Left Arm] 134/64 02 Sat by Pulse Oximetry 96 - Pain Right Hip Pain Intensity: 5 Generalized Pain Intensity: 3 Left Upper Arm Pain Intensity: 4 - Emotional Needs Assessment Emotional Needs Assessment: Emotional Needs Identified? No Distress Screening Total 0 - ECOG Performance Status ECOG Score: 1 Physical Exam Narrative: CONSTITUTIONAL: The patient is in no acute distress. He appears mildly fatigued. HEAD / FACE: Normocephalic. EYES: Pupils are equal and reactive to light. Conjunctivae and lids are benign in appearance. Ocular movement intact. EARS: Hearing grossly intact. NOSE / MOUTH / THROAT: Nose, mouth, tongue and oropharynx are benign in appearance. No signs of inflammation. NECK / THYROID: Neck is supple. Thyroid is symmetrical, without thyromegaly, masses or palpable nodules. LYMPHATIC: No palpable cervical, supraclavicular, axillary, or inguinal adenopathy. RESPIRATORY: Normal to inspection. Lungs clear to auscultation and percussion. No wheezing, rales, rhonchi or rubs. Normal effort. CARDIOVASCULAR: Regular rate and rhythm. No murmurs, gallops, or rubs. VASCULAR: Carotid, radial, femoral and pedal pulses present bilaterally. No bruits. ABDOMEN: Bowel sounds normoactive. Soft, nontender and non-distended. No hepatosplenomegaly. No masses. GENITOURINARY: No CVA tenderness. No suprapubic fullness or tenderness. No groinadenopathy. No evidence of hernias. INTEGUMENTARY: The skin is unremarkable. No rashes. No suspicious lesions BACK / SPINE: The back is nontender. No step-off deformity. No CVA tenderness. MUSCULOSKELETAL: Normal musculature, no joint deformities or abnormalities, normal range of motion for all four extremities. EXTREMITIES: No longer has bilateral lower extremity edema; no cyanosis or clubbing. No Vitor sign. NEUROLOGICAL: Alert and oriented. Cranial nerves intact. No gross motor or sensory deficits. PSYCHIATRIC: No anxiety or evidence of depression. Results - Labs Labs: Diagram of Most Recent CBC and CMP 07/02/20 08:27 Labs - Last 7 Days 07/02/20 08:27: WBC 8.6, Corrected WBC 8.6, RBC 3.51 L, Hgb 11.5 L, Hct 33.7 L, MCV 96.1, MCH 32.7, MCHC 34.1, RDW 15.2 H, Plt Count 278, MPV 8.0, Neut % (Auto)77.6, Lymph % (Auto) 12.3, [place] % (Auto) 7.3, Eos % (Auto) 2.1, Baso % (Auto) 0.7, Neut # (Auto) 6.7, Lymph # (Auto) 1.1, [place] # (Auto) 0.6, Eos # (Auto) 0.2,Baso # (Auto) 0.1, Nucleated RBC % (auto) 0.0 - Other Results Results/Comments: [facility], [address] [place] [address] and TRANSTHORACIC ECHOCARDIOGRAM REPORT Patient Name: PATSY Suarez Physician: [id number] Ti Grayson MD Study Date: 06/25/2020 Referring Physician: Quique Hall MRN/PID: [id number] PCP: Accession/Order#: [id number] Department Location: [facility] Date of : 1945 Fellow: Gender: M Nurse: Admit Date: Home Theater Expert: Lavonne Turcios RDCS Admission Status: Outpatient Additional Staff: Height: 180.34 cm CC Report to: Weight: 90.72 kg Study Type: Onco-Cardiology Echo BSA: 2.11 m2 Blood Pressure: 135 /82 mmHg Diagnosis/ICD: Z94.84-Stem cell transplant status Indication: Multiple myeloma; Stem-cell transplant Procedure/CPT: Echo Complete w Full Doppler-54297; 3D Rendering w/o independent workstation-[id number]; Myocardial Strain Imaging-[id number] CONCLUSIONS: 1. The left ventricular systolic function is normal with a 60% estimated ejection fraction. 2. Spectral Doppler shows an impaired relaxation pattern of left ventricular diastolic filling. 3. Mild aortic valve stenosis. 4.Strain values are equivocal. 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 He has marked elevation in IgG kappa on initial laboratory work-up for renal failure in February 2020. He has remained hemodynamically stable and I discussed in detail with the patient the pathophysiology of multiple myeloma and associated injury to kidneys, persistent anemia, bone disease, and potential hypercalcemia (we do not see hypercalcemia in this patient). He consented to inpatient bone marrow biopsy 03/08/2020 which was diagnostic for multiple myeloma--70% plasma cells without amyloid depositionidentified in small marrow specimen. Normal baseline skeletal survey. I reviewed pathophysiology of myeloma, results of bone marrow biopsy, skeletal survey, and myeloma labs with the patient and his . Patsy consented to begin first cycle Daratumumab, Velcade, and dexamethasone on03/12/2020--other than infusion reaction from first Daratumumab, improved with symptomatic therapy. I reviewed his case with Dr. Quique Hall of Malignant Hematology--we added Revlimid 5mg every other day following significant reduction of light chains--this was started in early April. 05/07/2020: As per HPI, Angel and his met with Dr. Hall 04/26/2020 with preparation for likely high-dose chemotherapy/autologous peripheral stem cell transplant if he meets criteria based on cardiopulmonary work-up. He has had greater than 90%. The patient was able to discontinue hemodialysis on 04/24/2020 and has not had any recurrence of edema with now improved renal function, creatinine clearance now 53. --I will continue current therapy with further evaluation by Dr. Hall in 1 month for planning his HDC/autologous stem cell transplant. We will send repeatmyeloma labs (SPEP, IgG, kappa/lambda light chains) in 4 weeks with f/u visit with me the following week to review results as well as evaluation with Dr. Hall for possible stem cell transplant. 06/04/2020: Tolerating chemotherapy well other than increasing neuropathy of hands and feet. I will dose reduce Velcade by 25% next cycle. Likely hold therapy after mid Jun for planned stem cell harvest and transplant planning. I will contact Dr. Hall for planned timing. F/u with me in one month. Add dailyferrous sulfate. --He was referred to diabetes management clinic and sees Dr. Heath with regularfollow-up by Dr. Rahman since he is off dialysis. Diabetes control improved. 07/02/2020: Last dose of Velcade today. Neuropathy is stable and pain is well controlled. He will have COVID-19 test on 07/11/2020 for planned admission for stem cell collection on 07/17/2020 then high-dose melphalan followed by peripheral blood stem cell transplant day 0 scheduled 07/23/2020. His next follow-up with me will be in about 4 months after he is completed day 100 transplant follow-up. He may return sooner as needed. This is a moderate complexity visit over 30 minutes for symptom review and coordination of care with tertiary malignant hematology referral, and review of laboratories/further plan for therapy, and ongoing counseling treatment course with patient and his . (2) Iron deficiency anemia Increased leg cramps recently with low iron saturation. Ferritin inappropriately normal due to inflammation from myeloma. Daily oral iron added due to symptomatic leg cramps and persistent anemia. Recheck iron studies at 4 month f/u visit. (3) Chemotherapy-induced peripheral neuropathy 25% dose reduction Velcade today due to reports of increased pain from neuropathy in fingers and feet. Stable at followup with me today--readdress post transplant. (4) History of hemodialysis Initiated inpatient hemodialysis 02/2020, then transitioned to outpatient hemodialysis 3 times weekly Thursday//Thursday schedule. Chemotherapy given Thursday/. 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 He was actually able to stop dialysis within 2 months with the last session 04/24/2020 as noted above. High-dose chemotherapy with autologous stem cell transplant was offered by Dr. Hall met at Malignant Hematology based on his good physiologic health despite his advanced age if cardiopulmonary work-up for this is suitable. For now we will give last dose Velcade (with 25% DR for neuropathy), dexamethasone today--holding daratumumab per Dr. Hall's request. Dr. Hall plans to proceed with HDC/PBSCT in early July given his significant response to initial myeloma directed therapy. (5) Steroid-induced diabetes mellitus Qualifiers: Encounter type: subsequent encounter Qualified Code(s): E09.9 - Drug or chemical induced diabetes mellitus without complications; T38.0X5D - Adverse effect of glucocorticoids and synthetic analogues, subsequent encounter Patsy had an excellent response of light chains but was noted to have significant hyperglycemia 300-500 fasting blood sugars. He was referred to diabetes management clinic with addition of insulin therapy that has significantly improved control of his blood sugars. Patient also had remarked on some blurred vision that improved with control of blood sugars. Continue follow-up of blood sugars during admission for transplant in early July--I clarified with the patient and his that all of his insulin management will occur as an inpatient in [place]. Increased peripheral neuropathy complaints in bilateral hands and feet now stabilized after 25% dose reduction of Velcade about 1 month ago (previously neuropathy only in third through fifth fingers of the left hand which he had prior to commencing therapy). (6) B12 deficiency Patient was found to have B12 deficiency and was been placed on daily B12 prior to hospital discharge. We continued weekly IM B12 for 8 weeks with his myeloma regimen. Hemoglobin is improved on Aranesp and weekly B12, then changed to monthly maintenance therapy. He has not required further blood transfusions since 03/15/2020. Follow- up methylmalonic acid on 04/30/2020 was normal showing adequate replacement. He will continue monthly IM B12 and weekly vitamin D2 therapy 50,000 units orally for low 25 hydroxy vitamin D stores. He may take supplemental calcium once daily. (7) Superficial thrombophlebitis of left upper extremity Previous left arm swelling and pain. Venous doppler ultrasound showed superficial thrombosis--I discussed with Dr. Rahman and we added heparin to dialysis. Now left arm swelling and discomfort improved and he is not on any active anticoagulation at this time. Will continue to follow after transplant. (8) Encounter for chemotherapy management Started cycle 1 day 1 03/12/2020: Daratumumab 16 mg/kg IV weekly, bortezomib 1.3 mg/kg subcu twice weekly, dexamethasone 40 mg weekly. We added Revlimid 5 mg every other day of each 21-day cycle with cycle 2 due to excellent reduction of kappa light chains (recommended by Dr. Hall malignanthematology). 06/04/2020: 25% Bortezumab (100% all other meds) due to worsening neuropathy. Last dose of 4009 07/02/2020) and holding daratumumab per request of Dr. Hall. Plan for HDC/PBSCT in early July 2020. - Chemo Plan Chemo Plan (Dose, Rate, Freq): Daratumumab 16 mg/kg IV weekly, bortezomib 1.3 mg/kg subcu twice weekly, dexamethasone 40 mg weekly for each 21-day cycle as directed (cycle 1 day 1 03/12/2020). Added Revlimid 5mg every other day as directed by Dr. Hall early Apr 2020. --25% Velcaamanda 06/04/2020, last dose 07/02/2020. HDC (Melphalan)/PBSCT in early Jul 2020. Goal of Treatment: Control - Time with Patient Total Time Spent with Patient: 30 min Coordination of Care & Counseling Time: Greater than 50% of time spent with patient was for coordination of care (as documented) and [id number] counseling of patient and/or family. Dictated By: Brook Huddleston MD DD/ 0904 Signed By: <Electronically signed by MD Brook Huddleston> 07/02/20 10[address] [facility] Work Phone: [phone] Progress note Author Brook Huddleston [facility] July 02, 2020 10:43am Note Date/Time July 02, 2020 9:04am [facility] [place] [id number] Hem/Onc Follow Up Note - OP Signed Patient: Patsy Mills MR#: [id number] : 1945 Acct:[id number] Age/Sex: 75 / M Type: REG RCR Copies to: MD Helen Jaramillo MD~ Subjective Date/Time of Service: Date of Service: 07/02/2020 Time of Service: 09:04 Chief Complaint: Patient is here for one month follow up, lab work drawn today. Patient is scheduled for transplant on Jul 13. Patient is scheduled for treatment today. Patient has lost 10lbs since last visit. HPI: 07/02/2020: Patsy has completed all of his pretransplant evaluation at [facility] including cardiology visit 11 which showed ejection fraction 60%. I have contacted Dr. Hall who noted that today will be his last day of Velcade and we will hold his daratumumab. He was to have a COVID-19 teston 07/11/2020 for planned stem cell collection 07/17 and transplant on 07/23. I clarified with the staff at [facility] this this may be performed at [facility] and forwarded to them. 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 His pain mainly in hips is about 3 out of 10 and controlled with Percocet. His next follow-up with me jaime be in about 4 months when he is post transplant although I am happy to see him sooner if new issues arise in his post transplant course that need to bemanaged closer to home. His most recent labs reveal improving hemoglobin (11.5), stable renal function (creatinine 1.35), normal calcium, and appropriateresponse of kappa light chain to now normal 18 with K/L ratio 2.02. 06/04/2020: Met with Dr. Hall on 05/24/2020 to discuss planning for high-dose chemotherapy peripheral blood stem cell transplant. He has now hemodialysis independent after daratumumab, dexamethasone, and Velcade with addition of Revlimid. Today he reports that he has had increased neuropathy symptoms in hisbilateral hands and feet with mild interference with activity (grade 2). We discussed a 25% dose reduction of Velcade on day 1, day 4, day 8, day 11 with current cycle of DVdR. He has some leg cramps at night, with normal magnesium, but low iron saturation noted--will start daily iron for symptoms. Otherwise heis tolerating therapy well and creatinine is now normal. He was given educationfor the transplant course and he is scheduled in late June after Thanksgiving to proceed with stem cell collection and transplant. I will communicate with Dr. Hall regarding end of therapy and in 1 month I will see him with follow-up myeloma studies. No other new concerns today. 05/07/2020: Patsy is here for 1 month follow-up. Outpatient hemodialysis was stopped after 04/24/2020 due to excellent response. He was evaluated by Dr. Small at [facility] on 04/26/2020. Angel and his note that Dr. Hall felt that he was physiologically about 8 years younger than his chronologic age and would likely be transplant eligible if pretransplant work-up deems this feasible. He recommended continuing current daratumumab and Velcade with low-dose Revlimid. He will reevaluate patient in 1 month and likely plan admission for stem cell collection, then high-dose chemotherapy/autologous stem cell transplantation in June or July. The patient's was concerned that she did not understand much of the pretransplant teaching and I explained to her and Don the pathophysiology of plasma cells, light chains, his improving trend of renal function, goal of 90% kappa/lambda ratio reduction prior to transplant. We also refilled Revlimid 5 mg every other day, weekly vitamin D, and I am giving him a trial of tramadol 50 mg every 12 hours as Tylenol is not effective for his pain and we are avoiding NSAIDs and additional aspirin. He otherwise has no toxicities of chemotherapy. He sees Dr. Heath for follow-up tomorrow and maintains insulin with stabilization of his blood sugars following with diabetes management clinic. I will see him in follow-up with myeloma labs in 1 month plan end of therapy prior to transplant. 04/09/2020: Here for one month f/u with his . He continues outpatient hemodialysis on Thursday//Saturdays. He notes fatigue, but generalized edema remarkably improved with no significant pain. I reviewed his M-spike, IgGand kappa light chains with K/L ratio that has remarkably improved (>90% reduction past month). [place] light chains decreased from 12,000 to 42. Only concern is significant hyperglycemia with dexamethasone. 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 I will coordinate evaluation by Dr. Quique Hall for HDC/autologous stem cell transplantevaluation and hold on adding Revlimid since significant response of light chains noted. I contacted Dr. Rahman of nephrology to consider reducing hemodialysis days to twice weekly. I will send myeloma labs in about 4 weeks, have him see Dr. Hall and f/u with me the following week to review plan and determine whether plan for HDC/stem cell transplant. 03/14/2020: Patient presents with his today after initiating both outpatienthemodialysis on Thursday//Saturdays and initial cycle of daratumumab, bortezomib, dexamethasone with potential addition of Revlimid after 1 month if less than optimal response. He received his first cycle of combination chemotherapy 03/12/2020. --Patient tolerated initial daratumumab infusion reasonably well with brief infusion reaction (dizziness and mild wheezing) that was treated with diphenhydramine, steroids, albuterol, and Demerol for rigors. He completed remaining infusion in an outpatient bed on the inpatient [place] Thursday and we anticipate further weekly daratumumab infusions as an outpatient. --Patient was seen at dialysis today and noted to have hemoglobin 6.8. He will receive 1 unit of packed red blood cells prior to Velcade today for scheduled tomorrow. His was unable to be present at the hospital at time of diagnosis and his initial bone marrow biopsy was performed on 03/08/2020. She requests evaluation with him today for extensive questions regarding his care. She reported her session and requested a copy of this progress note following our visit today. 1. She asked if all the tests at the hospital returned. We discussed the teststhat are used to follow-up myeloma including his elevated IgG, elevated free kappa light chains, and elevated M spike. We discussed in detail the pathophysiology of myeloma but she felt very anxious and overwhelmed and I reassured her that we will readdress this at further follow-up visits. 2. Patient had a metastatic bone survey showing no areas of lytic disease or pathologic fractures. We discussed CRAB criteria for multiple myeloma diagnosisand that he meets criteria of R renal and A anemia, but not elevated calcium or bone disease (C and B). She specifically asked is stage of multiple myeloma andwe noted that he still will require beta-2 glycoprotein (ISS) but is most consistent with stage III. We are still awaiting his chromosomal abnormalities by fluorescence in situ hybridization and will readdress at next follow-up visitwith his final bone marrow biopsy results (this study was only performed 03/08/2020). 3. She wanted to know if his testing showed cancer elsewhere. We discussed that since metastatic bone survey showed more lytic areas I do not feel that F-18 PET is high priority but this may be ordered at some point to assess for any asymptomatic bony metastatic disease. 4. He has recently had elevated blood sugars and does not have a history of diabetes, but we discussed that with weekly steroids he should likely have additional insulin on his steroid days. I offered that this could be managed byhis primary physician Dr. Heath and he could be referred for diabetes management clinic. 5. We reiterated multiple times that his schedule may be variable. He will typically have a long infusion on Mondays with daratumumab but initially he willpresent twice weekly for Velcade injection on Mondays and . This will change during the course of his therapy and he should refer to his calendar. 6. We discussed not taking additional vitamins unless approved by nephrology. I also discussed potentially adding Revlimid and we will address at future visits if this is needed based on his follow-up labs ordered 04/02/2020. His medications may be filled either locally or with his prescription plan, but manyof these will be ordered by nephrology. He is to continue vitamin D2 as recommended by nephrology. Blood pressure medications will be regulated by primary care and nephrology. 7. We discussed concerning side effects, most commonly hyperglycemia, insomnia,risk of thrombosis (recently was diagnosed with left superficial thrombosis of the left upper extremity and additional heparin is given with his dialysis), andneuropathy with Velcade. Patients do not tend to have significant nausea or possible appetite (effects of dexamethasone increase his appetite). I cannot recommend medical marijuana and would discuss this with his pre coder whetherthis would interfere with dialysis. We will also follow closely for cytopenias and reviewed infectious precautions. He has a son from [place] who plans to visit on Thursday and we discussed COVID-19 testing appropriate social isolation protocols. 8. We discussed whether he was eligible for transplant and this will be evaluated based on his response and overall health in likely 3 to 4 months afterinitiation of therapy. We did not discuss autologous stem cell transplant in detail. We did discuss that although this is not curative therapy, many patients are controlled with medication over longer periods of time (often 5 to 6 years) with appropriate therapy. It is an aggressive cancer due to its significant infectious risk and association with renal failure. 9. Exercise may be performed as tolerated but should be done in moderation and likely we should wait a few weeks for more significant exercise given his recentdialysis and initiation of chemotherapy. I did not specifically address his diet but he may address this with our [facility] nutrition team. He will also receivechemotherapy class with our nurses in the infusion center. PRELIMINARY HISTORY (from initial consult 03/08/2020): This is a 75-year-old male who was transferred from [place] emergency room by [facility] due to critical potassium 8.7 with elevated creatinine 11.2 and BUN 82 on 03/04/2020. We do not have any recent blood work for comparison but he hadnormal creatinine in 2011. He was urgently treated for his hyperkalemia and dialysis was arranged emergently by nephrology team. He has now stabilized on dialysis and had extensive work-up for etiology of his acute renal failure with severe anemia felt to be due to anemia of renal insufficiency. Iron studies returned normal with ferritin 160, but B12 low at 84 and folate low normal at 5.2. He is receiving appropriate B12 repletion. The patient reports that he has had a prolonged period of fatigue up to a year and has decreased appetite with subjective weight loss. He denies any significant bone pain other than pain in his right shoulder and has no prior falls or recurrent back pain. He had a shoulder film showing labral pathology of the joint but no fracture or dislocation. Myeloma labs were sent showing M spike 3.6 g/dL with serum immunofixation showing IgG kappa light chain specificity. Serum IgG markedly elevated at 5312 and free kappa light chain 12,649.9 with normal free lambda light chain 11.94 free kappa/lambda ratio 1063. Hepatitis A, B, and C serologies were all negative and COVID-19 screening was negative. LORE, c-ANCA, p-ANCA, anti-GBM, and antimyeloperoxidase were all negative. Clinically the patient has multiple myeloma and I explained that we needed to proceed with bone marrow aspiration and biopsy to provide baseline for diagnosis and to expedite chemotherapy with an aggressive regimen to reduce his light chains. I will review information with him at noon today around the time of his bone marrow biopsy for combinationdaratumumab 16 mg/kg IV weekly, bortezomib 1.3 mg/kg subcu twice weekly, dexamethasone 40 mg weekly, and Revlimid 25 mg p.o. daily days 1 through 14 of each 21-day cycle. Revlimid will be ordered through a special pharmacy. We will schedule his infusions as an outpatient early next week on his nondialysis days. Written literature for these medications will be provided and he may sign informed consent so that we may order this regimen as an outpatient. The patient's is not with him today but has been treated by me for breast cancer in the past and had multiple questions. We would like to arrange a time for her to be available to ask questions and be present for chemo consent, possibly around noon today. This will need to be coordinated with nursing staffdue to [facility]- visitor restriction policy. - Summary of Therapies Summary of Therapies: Cycle 1 day 1 03/12/2020: Daratumumab 16 mg/kg IV weekly, bortezomib 1.3 mg/kg subcu twice weekly, dexamethasone 40 mg weekly. 04/09/2020: Under direction of Dr. Hall, in early April we added Revlimid 5 mg every other day of each 21-day cycle with cycle 2 due to excellent response of kappa light chains. 04/26/2020: Malignant hematology eval for possible high-dose chemotherapy/autologous stem cell transplant. He was able to stop dialysis 04/24/2020. Given Velcade only (hold daratumumab) on 07/02/2020. 07/17/2020: Stem cell collection scheduled this day then should have high-dose melphalan with day 0 autologous stem cell transplant 07/23/[address] [facility]. ROS Details: All systems reviewed & no additional complaints except as documented Subjective/ROS - Narrative: CONSTITUTIONAL: Positive for fatigue at least 1 year (this has improved since starting therapy), negative for fever or night sweats. No recent infections. HEAD AND NECK: Improvement of prior blurred vision since control of his diabetesmellitus--over the past 3 months with improving glucose control. Negative for changes in hearing. Negative for mouth ulcers, nasal congestion and nasal drainage. PULMONARY: Negative for chest pain, cough and dyspnea. CARDIOVASCULAR: Negative for claudication and irregular heartbeat/palpitations. Resolved edema since diagnosis, now off dialysis. GASTROINTESTINAL: Negative for abdominal pain, constipation, diarrhea, nausea orvomiting. Positive for decreased appetite and 10 kg weight loss after starting dialysis and chemotherapy for light chain nephropathy. --Another 10 kg weight loss noted over the last 6 weeks. GENITOURINARY: Negative for dysuria and hematuria. Patient now with improved urinary output, diagnosed in February 2020 with renal failure requiring dialysis--off dialysis 04/24/2020. Prior nephrolithiasis previously followed by Dr. Seals. ENDOCRINE: Negative for cold intolerance and heat intolerance. Improvement of prior hyperglycemia with home blood sugars in the 200s to 300s range--now 100-200s on supplemental insulin glargine. CENTRAL NERVOUS SYSTEM: Negative for gait disturbance and headache. No focal neurologic deficits or history of stroke. PSYCHIATRIC: Negative for anxiety or depression. DERMATOLOGICAL: Negative for pruritus and rash. Negative for suspicious skin lesions. MUSCULOSKELETAL: Positive for back pain and and thigh pain for the past few weeks. Positive for leg cramps. Added ferrous sulfate once daily for iron saturation 11%. Added tramadol 50 mg every 6 hours as needed 05/07/2020. HEMATOLOGICAL: Negative for bleeding and easy bruising. Negative for history of transfusion (other than 1 unit packed red blood cells prior admission). Positive for left basilic vein thrombus on Doppler ultrasound 03/12/2020. ALLERGY: Negative for environmental allergies and food allergies. [facility] - History Attestation statement: The following information was validated with the patient. Source: Old Records Reviewed - Medical History Medical History: Medical History (Last Reviewed 07/02/20 @ 09:57 by Brook Huddleston MD) Apnea Arthritis Diabetes mellitus, type 2 Hyperlipidemia Hypertension Kidney stones Skin cancer - Family History Family History: Family History (Last Reviewed 07/02/20 @ 09:57 by Brook Huddleston MD) Sister Myocardial infarct Mother Myocardial infarct Father Skin cancer - Social History Smoking Status: Former smoker Tobacco Type: cigarettes Substance Use Type: None Home Medications & Allergies Allergies No Known Allergies Allergy (Verified 03/04/20 08:33) Home Medications docusate sodium [DOK] 100 mg PO BID #30 cap 03/10/20 [Rx Confirmed 07/02/20] famotidine 20 mg PO DAILY #30 tab 03/10/20 [Rx Confirmed 07/02/20] furosemide 40 mg PO BID@0800,1600 #60 tab 03/10/20 [Rx Confirmed 07/02/20] rosuvastatin [Crestor] 5 mg PO DAILY #30 tab 03/10/20 [Rx Confirmed 07/02/20] zolpidem [Ambien] 5 mg PO QHS 20 Days #20 tab 03/11/20 [Rx Confirmed 07/02/20] acetaminophen [Tylenol] 650 mg PO DAILY PRN 04/27/20 [History Confirmed 07/02/20] aspirin [Aspirin Low Dose] 81 mg PO DAILY 04/27/20 [History Confirmed 07/02/20] insulin glargine [Lantus Solostar U-100 Insulin] 28 unit SUBCUT DAILY 04/27/20 [History Confirmed 07/02/20] insulin lispro [Humalog KwikPen Insulin] 6 - 16 unit SUBCUT DIRECTED 04/27/20[History Confirmed 07/02/20] insulin NPH isoph U-100 human [Humulin N NPH U-100 Insulin] 30 unit SUBCUT DIRECTED 05/07/20 [History Confirmed 07/02/20] oxycodone-acetaminophen [Percocet] 1 tab PO Q4H PRN 05/30/20 [History Confirmed 07/02/20] ferrous sulfate 325 mg PO DAILY 07/02/20 [History Confirmed 07/02/20] hydralazine 25 mg PO BID 07/02/20 [History Confirmed 07/02/20] zinc 50 mg PO DAILY 07/02/20 [History Confirmed 07/02/20] Objective - Height/Weight Height/Weight: Height 5 ft 11 in Weight 87.997 kg BSA for Today's Weight 2.17 - Vital Signs Vital Signs: 07/02/20 08:53 Temperature 97.4 F L Pulse Rate [Monitor] 90 Respiratory Rate 18 Blood Pressure [Left Arm] 134/64 02 Sat by Pulse Oximetry 96 - Pain Right Hip Pain Intensity: 5 Generalized Pain Intensity: 3 Left Upper Arm Pain Intensity: 4 - Emotional Needs Assessment Emotional Needs Assessment: Emotional Needs Identified? No Distress Screening Total 0 - ECOG Performance Status ECOG Score: 1 Physical Exam Narrative: CONSTITUTIONAL: The patient is in no acute distress. He appears mildly fatigued. HEAD / FACE: Normocephalic. EYES: Pupils are equal and reactive to light. Conjunctivae and lids are benign in appearance. Ocular movement intact. EARS: Hearing grossly intact. NOSE / MOUTH / THROAT: Nose, mouth, tongue and oropharynx are benign in appearance. No signs of inflammation. NECK / THYROID: Neck is supple. Thyroid is symmetrical, without thyromegaly, masses or palpable nodules. LYMPHATIC: No palpable cervical, supraclavicular, axillary, or inguinal adenopathy. RESPIRATORY: Normal to inspection. Lungs clear to auscultation and percussion. No wheezing, rales, rhonchi or rubs. Normal effort. CARDIOVASCULAR: Regular rate and rhythm. No murmurs, gallops, or rubs. VASCULAR: Carotid, radial, femoral and pedal pulses present bilaterally. No bruits. ABDOMEN: Bowel sounds normoactive. Soft, nontender and non-distended. No hepatosplenomegaly. No masses. GENITOURINARY: No CVA tenderness. No suprapubic fullness or tenderness. No groinadenopathy. No evidence of hernias. INTEGUMENTARY: The skin is unremarkable. No rashes. No suspicious lesions BACK / SPINE: The back is nontender. No step-off deformity. No CVA tenderness. MUSCULOSKELETAL: Normal musculature, no joint deformities or abnormalities, normal range of motion for all four extremities. EXTREMITIES: No longer has bilateral lower extremity edema; no cyanosis or clubbing. No Vitor sign. NEUROLOGICAL: Alert and oriented. Cranial nerves intact. No gross motor or sensory deficits. PSYCHIATRIC: No anxiety or evidence of depression. Results - Labs Labs: Diagram of Most Recent CBC and CMP 07/02/20 08:27 Labs - Last 7 Days 07/02/20 08:27: WBC 8.6, Corrected WBC 8.6, RBC 3.51 L, Hgb 11.5 L, Hct 33.7 L, MCV 96.1, MCH 32.7, MCHC 34.1, RDW 15.2 H, Plt Count 278, MPV 8.0, Neut % (Auto)77.6, Lymph % (Auto) 12.3, [place] % (Auto) 7.3, Eos % (Auto) 2.1, Baso % (Auto) 0.7, Neut # (Auto) 6.7, Lymph # (Auto) 1.1, [place] # (Auto) 0.6, Eos # (Auto) 0.2,Baso # (Auto) 0.1, Nucleated RBC % (auto) 0.0 - Other Results Results/Comments: [facility], [address] [place] [address] and TRANSTHORACIC ECHOCARDIOGRAM REPORT Patient Name: PATSY MILLS Reading Physician: [id number] Ti Grayson MD Study Date: 06/25/2020 Referring Physician: Quique Hall MRN/PID: [id number] PCP: Accession/Order#: [id number] Department Location: [facility] Date of : 1945 Fellow: Gender: M Nurse: Admit Date: Home Theater Expert: Lavonne Turcios [facility] Admission Status: Outpatient Additional Staff: Height: 180.34 cm CC Report to: Weight: 90.72 kg Study Type: Onco-Cardiology Echo BSA: 2.11 m2 Blood Pressure: 135 /82 mmHg Diagnosis/ICD: Z94.84-Stem cell transplant status Indication: Multiple myeloma; Stem-cell transplant Procedure/CPT: Echo Complete w Full Doppler-89581; 3D Rendering w/o independent workstation-[id number]; Myocardial Strain Imaging-[id number] CONCLUSIONS: 1. The left ventricular systolic function is normal with a 60% estimated ejection fraction. 2. Spectral Doppler shows an impaired relaxation pattern of left ventricular diastolic filling. 3. Mild aortic valve stenosis. 4.Strain values are equivocal. 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 He has marked elevation in IgG kappa on initial laboratory work-up for renal failure in February 2020. He has remained hemodynamically stable and I discussed in detail with the patient the pathophysiology of multiple myeloma and associated injury to kidneys, persistent anemia, bone disease, and potential hypercalcemia (we do not see hypercalcemia in this patient). He consented to inpatient bone marrow biopsy 03/08/2020 which was diagnostic for multiple myeloma--70% plasma cells without amyloid depositionidentified in small marrow specimen. Normal baseline skeletal survey. I reviewed pathophysiology of myeloma, results of bone marrow biopsy, skeletal survey, and myeloma labs with the patient and his . Patsy consented to begin first cycle Daratumumab, Velcade, and dexamethasone on03/12/2020--other than infusion reaction from first Daratumumab, improved with symptomatic therapy. I reviewed his case with Dr. Quique Hall of Malignant Hematology--we added Revlimid 5mg every other day following significant reduction of light chains--this was started in early April. 05/07/2020: As per HPI, Don and his met with Dr. Hall 04/26/2020 with preparation for likely high-dose chemotherapy/autologous peripheral stem cell transplant if he meets criteria based on cardiopulmonary work-up. He has had greater than 90%. The patient was able to discontinue hemodialysis on 04/24/2020 and has not had any recurrence of edema with now improved renal function, creatinine clearance now 53. --I will continue current therapy with further evaluation by Dr. Hall in 1 month for planning his HDC/autologous stem cell transplant. We will send repeatmyeloma labs (SPEP, IgG, kappa/lambda light chains) in 4 weeks with f/u visit with me the following week to review results as well as evaluation with Dr. Hall for possible stem cell transplant. 06/04/2020: Tolerating chemotherapy well other than increasing neuropathy of hands and feet. I will dose reduce Velcade by 25% next cycle. Likely hold therapy after mid Nov for planned stem cell harvest and transplant planning. I will contact Dr. Hall for planned timing. F/u with me in one month. Add dailyferrous sulfate. --He was referred to diabetes management clinic and sees Dr. Heath with regularfollow-up by Dr. Rahman since he is off dialysis. Diabetes control improved. 07/02/2020: Last dose of Velcade today. Neuropathy is stable and pain is well controlled. He will have COVID-19 test on 07/11/2020 for planned admission for stem cell collection on 07/17/2020 then high-dose melphalan followed by peripheral blood stem cell transplant day 0 scheduled 07/23/2020. His next follow-up with me will be in about 4 months after he is completed day 100 transplant follow-up. He may return sooner as needed. This is a moderate complexity visit over 30 minutes for symptom review and coordination of care with tertiary malignant hematology referral, and review of laboratories/further plan for therapy, and ongoing counseling treatment course with patient and his . (2) Iron deficiency anemia Increased leg cramps recently with low iron saturation. Ferritin inappropriately normal due to inflammation from myeloma. Daily oral iron added due to symptomatic leg cramps and persistent anemia. Recheck iron studies at 4 month f/u visit. (3) Chemotherapy-induced peripheral neuropathy 25% dose reduction Velcade today due to reports of increased pain from neuropathy in fingers and feet. Stable at followup with me today--readdress post transplant. (4) History of hemodialysis Initiated inpatient hemodialysis 02/2020, then transitioned to outpatient hemodialysis 3 times weekly Thursday//Thursday schedule. Chemotherapy given Thursday/. 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 He was actually able to stop dialysis within 2 months with the last session 04/24/2020 as noted above. High-dose chemotherapy with autologous stem cell transplant was offered by Dr. Hall met at Malignant Hematology based on his good physiologic health despite his advanced age if cardiopulmonary work-up for this is suitable. For now we will give last dose Velcade (with 25% DR for neuropathy), dexamethasone today--holding daratumumab per Dr. Hall's request. Dr. Hall plans to proceed with HDC/PBSCT in early July given his significant response to initial myeloma directed therapy. (5) Steroid-induced diabetes mellitus Qualifiers: Encounter type: subsequent encounter Qualified Code(s): E09.9 - Drug or chemical induced diabetes mellitus without complications; T38.0X5D - Adverse effect of glucocorticoids and synthetic analogues, subsequent encounter Patsy had an excellent response of light chains but was noted to have significant hyperglycemia 300-500 fasting blood sugars. He was referred to diabetes management clinic with addition of insulin therapy that has significantly improved control of his blood sugars. Patient also had remarked on some blurred vision that improved with control of blood sugars. Continue follow-up of blood sugars during admission for transplant in early July--I clarified with the patient and his that all of his insulin management will occur as an inpatient in [place]. Increased peripheral neuropathy complaints in bilateral hands and feet now stabilized after 25% dose reduction of Velcade about 1 month ago (previously neuropathy only in third through fifth fingers of the left hand which he had prior to commencing therapy). (6) B12 deficiency Patient was found to have B12 deficiency and was been placed on daily B12 prior to hospital discharge. We continued weekly IM B12 for 8 weeks with his myeloma regimen. Hemoglobin is improved on Aranesp and weekly B12, then changed to monthly maintenance therapy. He has not required further blood transfusions since 03/15/2020. Follow- up methylmalonic acid on 04/30/2020 was normal showing adequate replacement. He will continue monthly IM B12 and weekly vitamin D2 therapy 50,000 units orally for low 25 hydroxy vitamin D stores. He may take supplemental calcium once daily. (7) Superficial thrombophlebitis of left upper extremity Previous left arm swelling and pain. Venous doppler ultrasound showed superficial thrombosis--I discussed with Dr. Rahman and we added heparin to dialysis. Now left arm swelling and discomfort improved and he is not on any active anticoagulation at this time. Will continue to follow after transplant. (8) Encounter for chemotherapy management Started cycle 1 day 1 03/12/2020: Daratumumab 16 mg/kg IV weekly, bortezomib 1.3 mg/kg subcu twice weekly, dexamethasone 40 mg weekly. We added Revlimid 5 mg every other day of each 21-day cycle with cycle 2 due to excellent reduction of kappa light chains (recommended by Dr. Hall malignanthematology). 06/04/2020: 25% Bortezumab (100% all other meds) due to worsening neuropathy. Last dose of 4009 07/02/2020) and holding daratumumab per request of Dr. Hall. Plan for HDC/PBSCT in early July 2020. - Chemo Plan Chemo Plan (Dose, Rate, Freq): Daratumumab 16 mg/kg IV weekly, bortezomib 1.3 mg/kg subcu twice weekly, dexamethasone 40 mg weekly for each 21-day cycle as directed (cycle 1 day 1 03/12/2020). Added Revlimid 5mg every other day as directed by Dr. Hall early Apr 2020. --25% DR Watts 06/04/2020, last dose 07/02/2020. HDC (Melphalan)/PBSCT in early Jul 2020. Goal of Treatment: Control - Time with Patient Total Time Spent with Patient: 30 min Coordination of Care & Counseling Time: Greater than 50% of time spent with patient was for coordination of care (as documented) and [id number] counseling of patient and/or family. Dictated By: Brook Huddleston MD DD/ 3 Signed By: <Electronically signed by MD Brook Huddleston> 07/02/20 1043 [facility] Work Phone: [phone] Progress note Author Brook Huddleston [facility] June 04, 2020 12:42pm Note Date/Time June 04, 2020 8 :39am [facility] [place] [id number] Hem/Onc Follow Up Note - OP Signed Patient: Patsy Mills MR#: [id number] : 1945 Acct:[id number] Age/Sex: 75 / M Type: REG RCR Copies to: Quique Hall MD Medicine [facility] Palliative Helen Heath MD~ Subjective Date/Time of Service: Date of Service: 06/04/2020 Time of Service: 08:38 Chief Complaint: Patient is here for follow up before tx today, patient is on last cycle of Revlimid. Transplant process is to start after . Patient complains of neuropathy. HPI: 06/04/2020: Met with Dr. Hall on 05/24/2020 to discuss planning for high-dose chemotherapy peripheral blood stem cell transplant. He has now hemodialysis independent after daratumumab, dexamethasone, and Velcade with addition of Revlimid. Today he reports that he has had increased neuropathy symptoms in hisbilateral hands and feet with mild interference with activity (grade 2). We discussed a 25% dose reduction of Velcade on day 1, day 4, day 8, day 11 with current cycle of DVdR. He has some leg cramps at night, with normal magnesium, but low iron saturation noted--will start daily iron for symptoms. Otherwise heis tolerating therapy well and creatinine is now normal. He was given educationfor the transplant course and he is scheduled in late June after to proceed with stem cell collection and transplant. I will communicate with Dr. Hall regarding end of therapy and in 1 month I will see him with follow-up myeloma studies. No other new concerns today. 05/07/2020: Patsy is here for 1 month follow-up. Outpatient hemodialysis was stopped after 04/24/2020 due to excellent response. He was evaluated by Dr. Small at [facility] on 04/26/2020. Angel and his note that Dr. Hall felt that he was physiologically about 8 years younger than his chronologic age and would likely be transplant eligible if pretransplant work-updeems this feasible. He recommended continuing current daratumumab and Velcade with low-dose Revlimid. He will reevaluate patient in 1 month and likely plan admission for stem cell collection, then high-dose chemotherapy/autologous stem cell transplantation in June or July. The patient's was concerned that she did not understand much of the pretransplant teaching and I explained to her and Don the pathophysiology of plasma cells, light chains, his improving trend of renal function, goal of 90% kappa/lambda ratio reduction prior to transplant. We also refilled Revlimid 5 mg every other day, weekly vitamin D, and I am giving him a trial of tramadol 50 mg every 12 hours as Tylenol is not effective for his pain and we are avoiding NSAIDs and additional aspirin. He otherwise has no toxicities of chemotherapy. He sees Dr. Heath for follow-up tomorrow and maintains insulin with stabilization of his blood sugars following with diabetes management clinic. I will see him in follow-up with myeloma labs in 1 month plan end of therapy prior to transplant. 04/09/2020: Here for one month f/u with his . He continues outpatient hemodialysis on Thursday//Saturdays. He notes fatigue, but generalized edema remarkably improved with no significant pain. I reviewed his M-spike, IgGand kappa light chains with K/L ratio that has remarkably improved (>90% reduction past month). [place] light chains decreased from 12,000 to 42. Only concern is significant hyperglycemia with dexamethasone. 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 I will coordinate evaluation by Dr. Quique Hall for HDC/autologous stem cell transplant evaluation and hold on adding Revlimid since significant response of light chains noted. I contacted Dr. Rahman of nephrology to consider reducing hemodialysis days to twice weekly. I will send myeloma labs in about 4 weeks, have him see Dr. Hall and f/u with me the following week to review plan and determine whether plan for HDC/stem cell transplant. 03/14/2020: Patient presents with his today after initiating both outpatienthemodialysis on Thursday//Saturdays and initial cycle of daratumumab, bortezomib, dexamethasone with potential addition of Revlimid after 1 month if less than optimal response. He received his first cycle of combination chemotherapy 03/12/2020. --Patient tolerated initial daratumumab infusion reasonably well with brief infusion reaction (dizziness and mild wheezing) that was treated with diphenhydramine, steroids, albuterol, and Demerol for rigors. He completed remaining infusion in an outpatient bed on the inpatient [place] Thursday and we anticipate further weekly daratumumab infusions as an outpatient. --Patient was seen at dialysis today and noted to have hemoglobin 6.8. He will receive 1 unit of packed red blood cells prior to Velcade today for scheduled tomorrow. His was unable to be present at the hospital at time of diagnosis and his initial bone marrow biopsy was performed on 03/08/2020. She requests evaluation with him today for extensive questions regarding his care. She reported her session and requested a copy of this progress note following our visit today. 1. She asked if all the tests at the hospital returned. We discussed the teststhat are used to follow-up myeloma including his elevated IgG, elevated free kappa light chains, and elevated M spike. We discussed in detail the pathophysiology of myeloma but she felt very anxious and overwhelmed and I reassured her that we will readdress this at further follow-up visits. 2. Patient had a metastatic bone survey showing no areas of lytic disease or pathologic fractures. We discussed CRAB criteria for multiple myeloma diagnosisand that he meets criteria of R renal and A anemia, but not elevated calcium or bone disease (C and B). She specifically asked is stage of multiple myeloma andwe noted that he still will require beta-2 glycoprotein (ISS) but is most consistent with stage III. We are still awaiting his chromosomal abnormalities by fluorescence in situ hybridization and will readdress at next follow-up visit with his final bone marrow biopsy results (this study was only performed 03/08/2020). 3. She wanted to know if his testing showed cancer elsewhere. We discussed that since metastatic bone survey showed more lytic areas I do not feel that F-18 PET is high priority but this may be ordered at some point to assess for any asymptomatic bony metastatic disease. 4. He has recently had elevated blood sugars and does not have a history of diabetes, but we discussed that with weekly steroids he should likely have additional insulin on his steroid days. I offered that this could be managed byhis primary physician Dr. Heath and he could be referred for diabetes management clinic. 5. We reiterated multiple times that his schedule may be variable. He will typically have a long infusion on Mondays with daratumumab but initially he willpresent twice weekly for Velcade injection on Mondays and . This will change during the course of his therapy and he should refer to his calendar. 6. We discussed not taking additional vitamins unless approved by nephrology. I also discussed potentially adding Revlimid and we will address at future visits if this is needed based on his follow-up labs ordered 04/02/2020. His medications may be filled either locally or with his prescription plan, but manyof these will be ordered by nephrology. He is to continue vitamin D2 as recommended by nephrology. Blood pressure medications will be regulated by primary care and nephrology. 7. We discussed concerning side effects, most commonly hyperglycemia, insomnia,risk of thrombosis (recently was diagnosed with left superficial thrombosis of the left upper extremity and additional heparin is given with his dialysis), andneuropathy with Velcade. Patients do not tend to have significant nausea or possible appetite (effects of dexamethasone increase his appetite). I cannot recommend medical marijuana and would discuss this with his pre coder whetherthis would interfere with dialysis. We will also follow closely for cytopenias and reviewed infectious precautions. He has a son from [place] who plans to visit on Thursday and we discussed COVID-19 testing appropriate social isolation protocols. 8. We discussed whether he was eligible for transplant and this will be evaluated based on his response and overall health in likely 3 to 4 months afterinitiation of therapy. We did not discuss autologous stem cell transplant in detail. We did discuss that although this is not curative therapy, many patients are controlled with medication over longer periods of time (often 5 to 6 years) with appropriate therapy. It is an aggressive cancer due to its significant infectious risk and association with renal failure. 9. Exercise may be performed as tolerated but should be done in moderation and likely we should wait a few weeks for more significant exercise given his recentdialysis and initiation of chemotherapy. I did not specifically address his diet but he may address this with our [facility] nutrition team. He will also receivechemotherapy class with our nurses in the infusion center. PRELIMINARY HISTORY (from initial consult 03/08/2020): This is a 75-year-old male who was transferred from [place] emergency room by [facility] due to critical potassium 8.7 with elevated creatinine 11.2 and BUN 82 on 03/04/2020. We do not have any recent blood work for comparison but he hadnormal creatinine in 2011. He was urgently treated for his hyperkalemia and dialysis was arranged emergently by nephrology team. He has now stabilized on dialysis and had extensive work-up for etiology of his acute renal failure with severe anemia felt to be due to anemia of renal insufficiency. Iron studies returned normal with ferritin 160, but B12 low at 84 and folate low normal at 5.2. He is receiving appropriate B12 repletion. The patient reports that he has had a prolonged period of fatigue up to a year and has decreased appetite with subjective weight loss. He denies any significant bone pain other than pain in his right shoulder and has no prior falls or recurrent back pain. He had ashoulder film showing labral pathology of the joint but no fracture or dislocation. Myeloma labs were sent showing M spike 3.6 g/dL with serum immunofixation showing IgG kappa light chain specificity. Serum IgG markedly elevated at 5312 and free kappa light chain 12,649.9 with normal free lambda light chain 11.94 free kappa/lambda ratio 1063. Hepatitis A, B, and C serologies were all negative and COVID-19 screening was negative. LORE, c-ANCA, p-ANCA, anti-GBM, and antimyeloperoxidase were all negative. Clinically the patient has multiple myeloma and I explained that we needed to proceed with bone marrow aspiration and biopsy to provide baseline for diagnosis and to expedite chemotherapy with an aggressive regimen to reduce his light chains. I will review information with him at noon today around the time of his bone marrow biopsy for combinationdaratumumab 16 mg/kg IV weekly, bortezomib 1.3 mg/kg subcu twice weekly, dexamethasone 40 mg weekly, and Revlimid 25 mg p.o. daily days 1 through 14 of each 21-day cycle. Revlimid will be ordered through a special pharmacy. We will schedule his infusions as an outpatient early next week on his nondialysis days. Written literature for these medications will be provided and he may signinformed consent so that we may order this regimen as an outpatient. The patient's is not with him today but has been treated by me for breast cancer in the past and had multiple questions. We would like to arrange a time for her to be available to ask questions and be present for chemo consent, possibly around noon today. This will need to be coordinated with nursing staffdue to [facility]-19 visitor restriction policy. - Summary of Therapies Summary of Therapies: Cycle 1 day 1 03/12/2020: Daratumumab 16 mg/kg IV weekly, bortezomib 1.3 mg/kg subcu twice weekly, dexamethasone 40 mg weekly. 04/09/2020: Under direction of Dr. Hall, in early April we added Revlimid 5 mg every other day of each 21-day cycle with cycle 2 due to excellent response of kappa light chains. 04/26/2020: Malignant hematology eval for possible high-dose chemotherapy/autologous stem cell transplant. He was able to stop dialysis 04/24/2020. Plan transplant late June 2020. ROS Details: All systems reviewed & no additional complaints except as documented Subjective/ROS - Narrative: CONSTITUTIONAL: Positive for fatigue at least 1 year (this has improved since starting therapy), negative for fever or night sweats. No recent infections. HEAD AND NECK: Improvement of prior blurred vision since control of his diabetesmellitus--over the past 2 months with improving glucose control. Negative for changes in hearing. Negative for mouth ulcers, nasal congestion and nasal drainage. PULMONARY: Negative for chest pain, cough and dyspnea. CARDIOVASCULAR: Negative for claudication and irregular heartbeat/palpitations. Resolved edema since diagnosis, now off dialysis. GASTROINTESTINAL: Negative for abdominal pain, constipation, diarrhea, nausea orvomiting. Positive for decreased appetite and 10 kg weight loss after starting dialysis and chemotherapy for light chain nephropathy--now stable past 2 months. GENITOURINARY: Negative for dysuria and hematuria. Patient now with improved urinary output, diagnosed in February 2020 with renal failure requiring dialysis--off dialysis 04/24/2020. Prior nephrolithiasis previously followed by Dr. Seals. ENDOCRINE: Negative for cold intolerance and heat intolerance. Improvement of prior hyperglycemia with home blood sugars in the 200s to 300s range--now mid 100s on supplemental insulin glargine. CENTRAL NERVOUS SYSTEM: Negative for gait disturbance and headache. No focal neurologic deficits or history of stroke. PSYCHIATRIC: Negative for anxiety or depression. DERMATOLOGICAL: Negative for pruritus and rash. Negative for suspicious skin lesions. MUSCULOSKELETAL: Positive for back pain and and thigh pain for the past few weeks. Positive for leg cramps. Added ferrous sulfate once daily for iron saturation 11%. Added tramadol 50 mg every 6 hours as needed 05/07/2020. HEMATOLOGICAL: Negative for bleeding and easy bruising. Negative for history of transfusion (other than 1 unit packed red blood cells prior admission). Positive for left basilic vein thrombus on Doppler ultrasound 03/12/2020. ALLERGY: Negative for environmental allergies and food allergies. [facility] - History Attestation statement: The following information was validated with the patient. Source: Old Records Reviewed - Medical History Medical History: Medical History (Last Reviewed 06/04/20 @ 12:20 by Brook Huddleston MD) Apnea Arthritis Diabetes mellitus, type 2 Hyperlipidemia Hypertension Kidney stones Skin cancer - Family History Family History: Family History (Last Reviewed 06/04/20 @ 12:20 by Brook Huddleston MD) Sister Myocardial infarct Mother Myocardial infarct Father Skin cancer - Social History Smoking Status: Former smoker Tobacco Type: cigarettes Substance Use Type: None Home Medications & Allergies Allergies No Known Allergies Allergy (Verified 03/04/20 08:33) Home Medications docusate sodium [DOK] 100 mg PO BID #30 cap 03/10/20 [Rx Confirmed 06/04/20] famotidine 20 mg PO DAILY #30 tab 03/10/20 [Rx Confirmed 06/04/20] furosemide 40 mg PO BID@0800,1600 #60 tab 03/10/20 [Rx Confirmed 06/04/20] hydralazine 50 mg PO BID #60 tab 03/10/20 [Rx Confirmed 06/04/20] rosuvastatin [Crestor] 5 mg PO DAILY #30 tab 03/10/20 [Rx Confirmed 06/04/20] zolpidem [Ambien] 5 mg PO QHS 20 Days #20 tab 03/11/20 [Rx Confirmed 06/04/20] acetaminophen [Tylenol] 650 mg PO DAILY PRN 04/27/20 [History Confirmed 06/04/20] aspirin [Aspirin Low Dose] 81 mg PO DAILY 04/27/20 [History Confirmed 06/04/20] insulin glargine [Lantus Solostar U-100 Insulin] 40 unit SUBCUT DAILY 04/27/20 [History Confirmed 06/04/20] insulin lispro [Humalog KwikPen Insulin] 6 - 16 unit SUBCUT DIRECTED 04/27/20[History Confirmed 06/04/20] ergocalciferol (vitamin D2) 50,000 unit PO Mo@0900 60 Days #8 cap 05/07/20 [Rx Confirmed 06/04/20] insulin NPH isoph U-100 human [Humulin N NPH U-100 Insulin] 30 unit SUBCUT DIRECTED 05/07/20 [History Confirmed 06/04/20] lenalidomide [Revlimid] 5 mg PO Q48HR 28 Days #11 cap 05/07/20 [Rx Confirmed 06/04/20] oxycodone-acetaminophen [Percocet] 1 tab PO Q4H PRN 05/30/20 [History Confirmed 06/04/20] Objective - Height/Weight Height/Weight: Height 5 ft 11 in Weight 93.894 kg BSA for Today's Weight 2.19 - Vital Signs Vital Signs: 06/04/20 08:30 Temperature 97.3 F L Pulse Rate [Monitor] 82 Respiratory Rate 20 Blood Pressure [Left Arm] 154/67 H 02 Sat by Pulse Oximetry 97 - Pain Right Hip Pain Intensity: 5 Generalized Pain Intensity: 4 Left Upper Arm Pain Intensity: 4 - Emotional Needs Assessment Emotional Needs Assessment: Emotional Needs Identified? No Distress Screening Total 0 - ECOG Performance Status ECOG Score: 1 Physical Exam Narrative: CONSTITUTIONAL: The patient is in no acute distress. He appears mildly fatigued. HEAD / FACE: Normocephalic. EYES: Pupils are equal and reactive to light. Conjunctivae and lids are benign in appearance. Ocular movement intact. EARS: Hearing grossly intact. NOSE / MOUTH / THROAT: Nose, mouth, tongue and oropharynx are benign in appearance. No signs of inflammation. NECK / THYROID: Neck is supple. Thyroid is symmetrical, without thyromegaly, masses or palpable nodules. LYMPHATIC: No palpable cervical, supraclavicular, axillary, or inguinal adenopathy. RESPIRATORY: Normal to inspection. Lungs clear to auscultation and percussion. No wheezing, rales, rhonchi or rubs. Normal effort. CARDIOVASCULAR: Regular rate and rhythm. No murmurs, gallops, or rubs. VASCULAR: Carotid, radial, femoral and pedal pulses present bilaterally. No bruits. ABDOMEN: Bowel sounds normoactive. Soft, nontender and non-distended. No hepatosplenomegaly. No masses. GENITOURINARY: No CVA tenderness. No suprapubic fullness or tenderness. No groinadenopathy. No evidence of hernias. INTEGUMENTARY: The skin is unremarkable. No rashes. No suspicious lesions BACK / SPINE: The back is nontender. No step-off deformity. No CVA tenderness. MUSCULOSKELETAL: Normal musculature, no joint deformities or abnormalities, normal range of motion for all four extremities. EXTREMITIES: No longer has bilateral lower extremity edema; no cyanosis or clubbing. No Vitor sign. NEUROLOGICAL: Alert and oriented. Cranial nerves intact. No gross motor or sensory deficits. PSYCHIATRIC: No anxiety or evidence of depression. Results - Labs Labs: Diagram of Most Recent CBC and CMP 06/04/20 08:06 Labs - Last 7 Days 06/04/20 08:06: WBC 6.7, Corrected WBC 6.7, RBC 2.83 L, Hgb 9.4 L, Hct 27.8 L, MCV 98.5, MCH 33.1, MCHC 33.6, RDW 16.6 H, Plt Count 274, MPV 7.5, Neut % (Auto)68.4, Lymph % (Auto) 14.8, [place] % (Auto) 10.5, Eos % (Auto) 5.5, Baso % (Auto) 0.8, Neut # (Auto) 4.6, Lymph # (Auto) 1.0, [place] # (Auto) 0.7, Eos # (Auto) 0.4,Baso # (Auto) 0.1, Nucleated RBC % (auto) 0.0 05/24/20 10:02: Ur Random Albumin 50.8, U Random Total Protein 8.8, U Erjrs-3-Hwofkyrp (%) 6.8, U Random f-3-Gvkzthxh % 19.6, U Random b-Globulin % 14.9, U Random Gamma Glob % 7.8, U Random M-Anselmo (%) Not observed, Urine RandomPEP Note 06/04/2020: Serum iron 32, iron sat 11%, Ferritin 228.5 (normal due to acute phase reactant). Magnesium 2.1. - Impressions No new imaging for review. 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 He has marked elevation in IgG kappa on initial laboratory work-up for renal failure in February 2020. He has remained hemodynamically stable and I discussed in detail with the patient the pathophysiology of multiple myeloma and associated injury to kidneys, persistent anemia, bone disease, and potential hypercalcemia (we do not see hypercalcemia in this patient). He consented to inpatient bone marrow biopsy 03/08/2020 which was diagnostic for multiple myeloma--70% plasma cells without amyloid depositionidentified in small marrow specimen. Normal baseline skeletal survey. I reviewed pathophysiology of myeloma, results of bone marrow biopsy, skeletal survey, and myeloma labs with the patient and his . Pasty consented to begin first cycle Daratumumab, Velcade, and dexamethasone on03/12/2020--other than infusion reaction from first Daratumumab, improved with symptomatic therapy. I reviewed his case with Dr. Quique Hall of Malignant Hematology--we added Revlimid 5mg every other day following significant reduction of light chains--this was started in early April. 05/07/2020: As per HPI, Angel and his met with Dr. Hall 04/26/2020 with preparation for likely high-dose chemotherapy/autologous peripheral stem cell transplant if he meets criteria based on cardiopulmonary work-up. He has had greater than 90%. The patient was able to discontinue hemodialysis on 04/24/2020 and has not had any recurrence of edema with now improved renal function, creatinine clearance now 53. --I will continue current therapy with further evaluation by Dr. Hall in 1 month for planning his HDC/autologous stem cell transplant. We will send repeatmyeloma labs (SPEP, IgG, kappa/lambda light chains) in 4 weeks with f/u visit with me the following week to review results as well as evaluation with Dr. Hall for possible stem cell transplant. 06/04/2020: Tolerating chemotherapy well other than increasing neuropathy of hands and feet. I will dose reduce Velcade by 25% next cycle. Likely hold therapy after mid Jun for planned stem cell harvest and transplant planning. I will contact Dr. Hall for planned timing. F/u with me in one month. Add dailyferrous sulfate. --He was referred to diabetes management clinic and sees Dr. Heath with regularfollow-up by Dr. Rahman since he is off dialysis. Diabetes control improved. This is a moderate complexity visit over 30 minutes for symptom review and coordination of care with tertiary malignant hematology referral, and review of laboratories/further plan for therapy, and ongoing counseling treatment course with patient and his . (2) Iron deficiency anemia Increased leg cramps recently with low iron saturation. Ferritin inappropriately normal due to inflammation from myeloma. Daily oral iron added due to symptomatic leg cramps and persistent anemia. (3) Chemotherapy-induced peripheral neuropathy 25% dose reduction Velcade today due to reports of increased pain from neuropathy in fingers and feet. Reassess at followup with me in one month. (4) History of hemodialysis Initiated inpatient hemodialysis 02/2020, then transitioned to outpatient hemodialysis 3 times weekly Thursday//Thursday schedule. Chemotherapy given Thursday/. I explained to patient and his that with light chainnephropathy once we have reduction of light chains, we hoped to reverse his renal failure and potentially he may stop dialysis in the future (likely over several months). He was actually able to stop dialysis within 2 months with thelast session 04/24/2020 as noted above. High-dose chemotherapy with autologous stem cell transplant was offered by Dr. Hall met at [facility] based on his good physiologic health despite his advanced age if cardiopulmonary work-up for this is suitable. Dr. Hall plans to proceed with HDC/PBSCT in late June given his significant response to initial myeloma directed therapy. For now we will continue daratumumab, Velcade (with 25% DR for neuropathy), dexamethasone, and low-dose Revlimid. (5) Steroid-induced diabetes mellitus Qualifiers: Encounter type: subsequent encounter Qualified Code(s): E09.9 - Drug or chemical induced diabetes mellitus without complications; T38.0X5D - Adverse effect of glucocorticoids and synthetic analogues, subsequent encounter Patsy had an excellent response of light chains but was noted to have significant hyperglycemia 300-500 fasting blood sugars. He was referred to diabetes management clinic with addition of insulin therapy that has significantly improved control of his blood sugars. Patient also had remarked on some blurred vision that improved with control of blood sugars. Continue follow-up of blood sugars with each week of dexamethasone therapy, daratumumab, Velcade, and low-dose Revlimid. Increased peripheral neuropathy complaints are now in bilateral hands and feet with planned 25% dose reduction of Velcade today(previously neuropathy only in third through fifth fingers of the left hand which he had prior to commencing therapy). (6) B12 deficiency Patient was found to have B12 deficiency and was been placed on daily B12 prior to hospital discharge. We continued weekly IM B12 for 8 weeks with his myeloma regimen. Hemoglobin is improved on Aranesp and weekly B12, then changed to monthly maintenance therapy. He has not required further blood transfusions since 03/15/2020. Follow- up methylmalonic acid on 04/30/2020 was normal showing adequate replacement. He will continue monthly IM B12 and weekly vitamin D2 therapy 50,000 units orally for low 25 hydroxy vitamin D stores. He may take supplemental calcium once daily. (7) Superficial thrombophlebitis of left upper extremity Previous left arm swelling and pain. Venous doppler ultrasound showed superficial thrombosis--I discussed with Dr. Rahman and we added heparin to dialysis. Now left arm swelling and discomfort improved. Will continue to follow with further cycles of chemotherapy. (8) Encounter for chemotherapy management Started cycle 1 day 1 03/12/2020: Daratumumab 16 mg/kg IV weekly, bortezomib 1.3 mg/kg subcu twice weekly, dexamethasone 40 mg weekly. We added Revlimid 5 mg every other day of each 21-day cycle with cycle 2 due to excellent reduction of kappa light chains (recommended by Dr. Hall malignanthematology). 06/04/2020: 25% Bortezumab (100% all other meds) due to worsening neuropathy. Plan for HDC/PBSCT in late June 2020. - Chemo Plan Chemo Plan (Dose, Rate, Freq): Daratumumab 16 mg/kg IV weekly, bortezomib 1.3 mg/kg subcu twice weekly, dexamethasone 40 mg weekly for each 21-day cycle as directed (cycle 1 day 1 03/12/2020). Added Revlimid 5mg every other day as directed by Dr. Hall early Apr 2020. --25% DR Watts 06/04/2020. HDC (Melphalan)/PBSCT in late Jun 2020. Goal of Treatment: Control - Time with Patient Total Time Spent with Patient: 30 min Coordination of Care & Counseling Time: Greater than 50% of time spent with patient was for coordination of care (as documented) and [id number] counseling of patient and/or family. Dictated By: Brook Huddleston MD DD/ [id number] Signed By: <Electronically signed by MD Brook Huddleston> 06/04/20 1247 [facility] Work Phone: [phone] Progress note Author Brook Huddleston [facility] June 04, 2020 12:42pm Note Date/Time June 04, 2020 8 :39am [facility] [place] [address] Hem/Onc Follow Up Note - OP Signed Patient: Patsy Mills MR#: [id number] : 1945 Acct:[id number] Age/Sex: 75 / M Type: REG RCR Copies to: Quique Hall MD Medicine [facility] Palliative Helen Heath MD~ Subjective Date/Time of Service: Date of Service: 06/04/2020 Time of Service: 08:38 Chief Complaint: Patient is here for follow up before tx today, patient is on last cycle of Revlimid. Transplant process is to start after . Patient complains of neuropathy. HPI: 06/04/2020: Met with Dr. Hall on 05/24/2020 to discuss planning for high-dose chemotherapy peripheral blood stem cell transplant. He has now hemodialysis independent after daratumumab, dexamethasone, and Velcade with addition of Revlimid. Today he reports that he has had increased neuropathy symptoms in hisbilateral hands and feet with mild interference with activity (grade 2). We discussed a 25% dose reduction of Velcade on day 1, day 4, day 8, day 11 with current cycle of DVdR. He has some leg cramps at night, with normal magnesium, but low iron saturation noted--will start daily iron for symptoms. Otherwise heis tolerating therapy well and creatinine is now normal. He was given educationfor the transplant course and he is scheduled in late June after Thanksgiving to proceed with stem cell collection and transplant. I will communicate with Dr. Hall regarding end of therapy and in 1 month I will see him with follow-up myeloma studies. No other new concerns today. 05/07/2020: Patsy is here for 1 month follow-up. Outpatient hemodialysis was stopped after 04/24/2020 due to excellent response. He was evaluated by Dr. Small at [facility] on 04/26/2020. Angel and his note that Dr. Hall felt that he was physiologically about 8 years younger than his chronologic age and would likely be transplant eligible if pretransplant work-updeems this feasible. He recommended continuing current daratumumab and Velcade with low-dose Revlimid. He will reevaluate patient in 1 month and likely plan admission for stem cell collection, then high-dose chemotherapy/autologous stem cell transplantation in June or July. The patient's was concerned that she did not understand much of the pretransplant teaching and I explained to her and Don the pathophysiology of plasma cells, light chains, his improving trend of renal function, goal of 90% kappa/lambda ratio reduction prior to transplant. We also refilled Revlimid 5 mg every other day, weekly vitamin D, and I am giving him a trial of tramadol 50 mg every 12 hours as Tylenol is not effective for his pain and we are avoiding NSAIDs and additional aspirin. He otherwise has no toxicities of chemotherapy. He sees Dr. Heath for follow-up tomorrow and maintains insulin with stabilization of his blood sugars following with diabetes management clinic. I will see him in follow-up with myeloma labs in 1 month plan end of therapy prior to transplant. 04/09/2020: Here for one month f/u with his . He continues outpatient hemodialysis on Thursday//Saturdays. He notes fatigue, but generalized edema remarkably improved with no significant pain. I reviewed his M-spike, IgGand kappa light chains with K/L ratio that has remarkably improved (>90% reduction past month). [place] light chains decreased from 12,000 to 42. Only concern is significant hyperglycemia with dexamethasone. 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 I will coordinate evaluation by Dr. Quique Hall for HDC/autologous stem cell transplant evaluation and hold on adding Revlimid since significant response of light chains noted. I contacted Dr. Rahman of nephrology to consider reducing hemodialysis days to twice weekly. I will send myeloma labs in about 4 weeks, have him see Dr. Hall and f/u with me the following week to review plan and determine whether plan for HDC/stem cell transplant. 03/14/2020: Patient presents with his today after initiating both outpatienthemodialysis on Thursday//Saturdays and initial cycle of daratumumab, bortezomib, dexamethasone with potential addition of Revlimid after 1 month if less than optimal response. He received his first cycle of combination chemotherapy 03/12/2020. --Patient tolerated initial daratumumab infusion reasonably well with brief infusion reaction (dizziness and mild wheezing) that was treated with diphenhydramine, steroids, albuterol, and Demerol for rigors. He completed remaining infusion in an outpatient bed on the inpatient [place] Thursday and we anticipate further weekly daratumumab infusions as an outpatient. --Patient was seen at dialysis today and noted to have hemoglobin 6.8. He will receive 1 unit of packed red blood cells prior to Velcade today for scheduled tomorrow. His was unable to be present at the hospital at time of diagnosis and his initial bone marrow biopsy was performed on 03/08/2020. She requests evaluation with him today for extensive questions regarding his care. She reported her session and requested a copy of this progress note following our visit today. 1. She asked if all the tests at the hospital returned. We discussed the teststhat are used to follow-up myeloma including his elevated IgG, elevated free kappa light chains, and elevated M spike. We discussed in detail the pathophysiology of myeloma but she felt very anxious and overwhelmed and I reassured her that we will readdress this at further follow-up visits. 2. Patient had a metastatic bone survey showing no areas of lytic disease or pathologic fractures. We discussed CRAB criteria for multiple myeloma diagnosisand that he meets criteria of R renal and A anemia, but not elevated calcium or bone disease (C and B). She specifically asked is stage of multiple myeloma andwe noted that he still will require beta-2 glycoprotein (ISS) but is most consistent with stage III. We are still awaiting his chromosomal abnormalities by fluorescence in situ hybridization and will readdress at next follow-up visit with his final bone marrow biopsy results (this study was only performed 03/08/2020). 3. She wanted to know if his testing showed cancer elsewhere. We discussed that since metastatic bone survey showed more lytic areas I do not feel that F-18 PET is high priority but this may be ordered at some point to assess for any asymptomatic bony metastatic disease. 4. He has recently had elevated blood sugars and does not have a history of diabetes, but we discussed that with weekly steroids he should likely have additional insulin on his steroid days. I offered that this could be managed byhis primary physician Dr. Heath and he could be referred for diabetes management clinic. 5. We reiterated multiple times that his schedule may be variable. He will typically have a long infusion on Mondays with daratumumab but initially he willpresent twice weekly for Velcade injection on Mondays and . This will change during the course of his therapy and he should refer to his calendar. 6. We discussed not taking additional vitamins unless approved by nephrology. I also discussed potentially adding Revlimid and we will address at future visits if this is needed based on his follow-up labs ordered 04/02/2020. His medications may be filled either locally or with his prescription plan, but manyof these will be ordered by nephrology. He is to continue vitamin D2 as recommended by nephrology. Blood pressure medications will be regulated by primary care and nephrology. 7. We discussed concerning side effects, most commonly hyperglycemia, insomnia,risk of thrombosis (recently was diagnosed with left superficial thrombosis of the left upper extremity and additional heparin is given with his dialysis), andneuropathy with Velcade. Patients do not tend to have significant nausea or possible appetite (effects of dexamethasone increase his appetite). I cannot recommend medical marijuana and would discuss this with his pre coder whetherthis would interfere with dialysis. We will also follow closely for cytopenias and reviewed infectious precautions. He has a son from [place] who plans to visit on Thursday and we discussed COVID-19 testing appropriate social isolation protocols. 8. We discussed whether he was eligible for transplant and this will be evaluated based on his response and overall health in likely 3 to 4 months afterinitiation of therapy. We did not discuss autologous stem cell transplant in detail. We did discuss that although this is not curative therapy, many patients are controlled with medication over longer periods of time (often 5 to 6 years) with appropriate therapy. It is an aggressive cancer due to its significant infectious risk and association with renal failure. 9. Exercise may be performed as tolerated but should be done in moderation and likely we should wait a few weeks for more significant exercise given his recentdialysis and initiation of chemotherapy. I did not specifically address his diet but he may address this with our [facility] nutrition team. He will also receivechemotherapy class with our nurses in the infusion center. PRELIMINARY HISTORY (from initial consult 03/08/2020): This is a 75-year-old male who was transferred from [place] emergency room by [facility] due to critical potassium 8.7 with elevated creatinine 11.2 and BUN 82 on 03/04/2020. We do not have any recent blood work for comparison but he hadnormal creatinine in 2011. He was urgently treated for his hyperkalemia and dialysis was arranged emergently by nephrology team. He has now stabilized on dialysis and had extensive work-up for etiology of his acute renal failure with severe anemia felt to be due to anemia of renal insufficiency. Iron studies returned normal with ferritin 160, but B12 low at 84 and folate low normal at 5.2. He is receiving appropriate B12 repletion. The patient reports that he has had a prolonged period of fatigue up to a year and has decreased appetite with subjective weight loss. He denies any significant bone pain other than pain in his right shoulder and has no prior falls or recurrent back pain. He had ashoulder film showing labral pathology of the joint but no fracture or dislocation. Myeloma labs were sent showing M spike 3.6 g/dL with serum immunofixation showing IgG kappa light chain specificity. Serum IgG markedly elevated at 5312 and free kappa light chain 12,649.9 with normal free lambda light chain 11.94 free kappa/lambda ratio 1063. Hepatitis A, B, and C serologies were all negative and COVID-19 screening was negative. LORE, c-ANCA, p-ANCA, anti-GBM, and antimyeloperoxidase were all negative. Clinically the patient has multiple myeloma and I explained that we needed to proceed with bone marrow aspiration and biopsy to provide baseline for diagnosis and to expedite chemotherapy with an aggressive regimen to reduce his light chains. I will review information with him at noon today around the time of his bone marrow biopsy for combinationdaratumumab 16 mg/kg IV weekly, bortezomib 1.3 mg/kg subcu twice weekly, dexamethasone 40 mg weekly, and Revlimid 25 mg p.o. daily days 1 through 14 of each 21-day cycle. Revlimid will be ordered through a special pharmacy. We will schedule his infusions as an outpatient early next week on his nondialysis days. Written literature for these medications will be provided and he may signinformed consent so that we may order this regimen as an outpatient. The patient's is not with him today but has been treated by me for breast cancer in the past and had multiple questions. We would like to arrange a time for her to be available to ask questions and be present for chemo consent, possibly around noon today. This will need to be coordinated with nursing staffdue to [place] [id number] visitor restriction policy. - Summary of Therapies Summary of Therapies: Cycle 1 day 1 03/12/2020: Daratumumab 16 mg/kg IV weekly, bortezomib 1.3 mg/kg subcu twice weekly, dexamethasone 40 mg weekly. 04/09/2020: Under direction of Dr. Hall, in early April we added Revlimid 5 mg every other day of each 21-day cycle with cycle 2 due to excellent response of kappa light chains. 04/26/2020: Malignant hematology eval for possible high-dose chemotherapy/autologous stem cell transplant. He was able to stop dialysis 04/24/2020. Plan transplant late June 2020. ROS Details: All systems reviewed & no additional complaints except as documented Subjective/ROS - Narrative: CONSTITUTIONAL: Positive for fatigue at least 1 year (this has improved since starting therapy), negative for fever or night sweats. No recent infections. HEAD AND NECK: Improvement of prior blurred vision since control of his diabetesmellitus--over the past 2 months with improving glucose control. Negative for changes in hearing. Negative for mouth ulcers, nasal congestion and nasal drainage. PULMONARY: Negative for chest pain, cough and dyspnea. CARDIOVASCULAR: Negative for claudication and irregular heartbeat/palpitations. Resolved edema since diagnosis, now off dialysis. GASTROINTESTINAL: Negative for abdominal pain, constipation, diarrhea, nausea orvomiting. Positive for decreased appetite and 10 kg weight loss after starting dialysis and chemotherapy for light chain nephropathy--now stable past 2 months. GENITOURINARY: Negative for dysuria and hematuria. Patient now with improved urinary output, diagnosed in February 2020 with renal failure requiring dialysis--off dialysis 04/24/2020. Prior nephrolithiasis previously followed by Dr. Seals. ENDOCRINE: Negative for cold intolerance and heat intolerance. Improvement of prior hyperglycemia with home blood sugars in the 200s to 300s range--now mid 100s on supplemental insulin glargine. CENTRAL NERVOUS SYSTEM: Negative for gait disturbance and headache. No focal neurologic deficits or history of stroke. PSYCHIATRIC: Negative for anxiety or depression. DERMATOLOGICAL: Negative for pruritus and rash. Negative for suspicious skin lesions. MUSCULOSKELETAL: Positive for back pain and and thigh pain for the past few weeks. Positive for leg cramps. Added ferrous sulfate once daily for iron saturation 11%. Added tramadol 50 mg every 6 hours as needed 05/07/2020. HEMATOLOGICAL: Negative for bleeding and easy bruising. Negative for history of transfusion (other than 1 unit packed red blood cells prior admission). Positive for left basilic vein thrombus on Doppler ultrasound 03/12/2020. ALLERGY: Negative for environmental allergies and food allergies. [facility] - History Attestation statement: The following information was validated with the patient. Source: Old Records Reviewed - Medical History Medical History: Medical History (Last Reviewed 06/04/20 @ 12:20 by Brook Huddleston MD) Apnea Arthritis Diabetes mellitus, type 2 Hyperlipidemia Hypertension Kidney stones Skin cancer - Family History Family History: Family History (Last Reviewed 06/04/20 @ 12:20 by Brook Huddleston MD) Sister Myocardial infarct Mother Myocardial infarct Father Skin cancer - Social History Smoking Status: Former smoker Tobacco Type: cigarettes Substance Use Type: None Home Medications & Allergies Allergies No Known Allergies Allergy (Verified 03/04/20 08:33) Home Medications docusate sodium [DOK] 100 mg PO BID #30 cap 03/10/20 [Rx Confirmed 06/04/20] famotidine 20 mg PO DAILY #30 tab 03/10/20 [Rx Confirmed 06/04/20] furosemide 40 mg PO BID@0800,1600 #60 tab 03/10/20 [Rx Confirmed 06/04/20] hydralazine 50 mg PO BID #60 tab 03/10/20 [Rx Confirmed 06/04/20] rosuvastatin [Crestor] 5 mg PO DAILY #30 tab 03/10/20 [Rx Confirmed 06/04/20] zolpidem [Ambien] 5 mg PO QHS 20 Days #20 tab 03/11/20 [Rx Confirmed 06/04/20] acetaminophen [Tylenol] 650 mg PO DAILY PRN 04/27/20 [History Confirmed 06/04/20] aspirin [Aspirin Low Dose] 81 mg PO DAILY 04/27/20 [History Confirmed 06/04/20] insulin glargine [Lantus Solostar U-100 Insulin] 40 unit SUBCUT DAILY 04/27/20 [History Confirmed 06/04/20] insulin lispro [Humalog KwikPen Insulin] 6 - 16 unit SUBCUT DIRECTED 04/27/20[History Confirmed 06/04/20] ergocalciferol (vitamin D2) 50,000 unit PO Mo@0900 60 Days #8 cap 05/07/20 [Rx Confirmed 06/04/20] insulin NPH isoph U-100 human [Humulin N NPH U-100 Insulin] 30 unit SUBCUT DIRECTED 05/07/20 [History Confirmed 06/04/20] lenalidomide [Revlimid] 5 mg PO Q48HR 28 Days #11 cap 05/07/20 [Rx Confirmed 06/04/20] oxycodone-acetaminophen [Percocet] 1 tab PO Q4H PRN 05/30/20 [History Confirmed 06/04/20] Objective - Height/Weight Height/Weight: Height 5 ft 11 in Weight 93.894 kg BSA for Today's Weight 2.19 - Vital Signs Vital Signs: 06/04/20 08:30 Temperature 97.3 F L Pulse Rate [Monitor] 82 Respiratory Rate 20 Blood Pressure [Left Arm] 154/67 H 02 Sat by Pulse Oximetry 97 - Pain Right Hip Pain Intensity: 5 Generalized Pain Intensity: 4 Left Upper Arm Pain Intensity: 4 - Emotional Needs Assessment Emotional Needs Assessment: Emotional Needs Identified? No Distress Screening Total 0 - ECOG Performance Status ECOG Score: 1 Physical Exam Narrative: CONSTITUTIONAL: The patient is in no acute distress. He appears mildly fatigued. HEAD / FACE: Normocephalic. EYES: Pupils are equal and reactive to light. Conjunctivae and lids are benign in appearance. Ocular movement intact. EARS: Hearing grossly intact. NOSE / MOUTH / THROAT: Nose, mouth, tongue and oropharynx are benign in appearance. No signs of inflammation. NECK / THYROID: Neck is supple. Thyroid is symmetrical, without thyromegaly, masses or palpable nodules. LYMPHATIC: No palpable cervical, supraclavicular, axillary, or inguinal adenopathy. RESPIRATORY: Normal to inspection. Lungs clear to auscultation and percussion. No wheezing, rales, rhonchi or rubs. Normal effort. CARDIOVASCULAR: Regular rate and rhythm. No murmurs, gallops, or rubs. VASCULAR: Carotid, radial, femoral and pedal pulses present bilaterally. No bruits. ABDOMEN: Bowel sounds normoactive. Soft, nontender and non-distended. No hepatosplenomegaly. No masses. GENITOURINARY: No CVA tenderness. No suprapubic fullness or tenderness. No groinadenopathy. No evidence of hernias. INTEGUMENTARY: The skin is unremarkable. No rashes. No suspicious lesions BACK / SPINE: The back is nontender. No step-off deformity. No CVA tenderness. MUSCULOSKELETAL: Normal musculature, no joint deformities or abnormalities, normal range of motion for all four extremities. EXTREMITIES: No longer has bilateral lower extremity edema; no cyanosis or clubbing. No Vitor sign. NEUROLOGICAL: Alert and oriented. Cranial nerves intact. No gross motor or sensory deficits. PSYCHIATRIC: No anxiety or evidence of depression. Results - Labs Labs: Diagram of Most Recent CBC and CMP 06/04/20 08:06 Labs - Last 7 Days 06/04/20 08:06: WBC 6.7, Corrected WBC 6.7, RBC 2.83 L, Hgb 9.4 L, Hct 27.8 L, MCV 98.5, MCH 33.1, MCHC 33.6, RDW 16.6 H, Plt Count 274, MPV 7.5, Neut % (Auto)68.4, Lymph % (Auto) 14.8, [place] % (Auto) 10.5, Eos % (Auto) 5.5, Baso % (Auto) 0.8, Neut # (Auto) 4.6, Lymph # (Auto) 1.0, [place] # (Auto) 0.7, Eos # (Auto) 0.4,Baso # (Auto) 0.1, Nucleated RBC % (auto) 0.0 05/24/20 10:02: Ur Random Albumin 50.8, U Random Total Protein 8.8, U Iyinl-3-Xuhvadri (%) 6.8, U Random k-0-Bhrosbeo % 19.6, U Random b-Globulin % 14.9, U Random Gamma Glob % 7.8, U Random M-Anselmo (%) Not observed, Urine RandomPEP Note 06/04/2020: Serum iron 32, iron sat 11%, Ferritin 228.5 (normal due to acute phase reactant). Magnesium 2.1. - Impressions No new imaging for review. 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 He has marked elevation in IgG kappa on initial laboratory work-up for renal failure in February 2020. He has remained hemodynamically stable and I discussed in detail with the patient the pathophysiology of multiple myeloma and associated injury to kidneys, persistent anemia, bone disease, and potential hypercalcemia (we do not see hypercalcemia in this patient). He consented to inpatient bone marrow biopsy 03/08/2020 which was diagnostic for multiple myeloma--70% plasma cells without amyloid depositionidentified in small marrow specimen. Normal baseline skeletal survey. I reviewed pathophysiology of myeloma, results of bone marrow biopsy, skeletal survey, and myeloma labs with the patient and his . Patsy consented to begin first cycle Daratumumab, Velcade, and dexamethasone on03/12/2020--other than infusion reaction from first Daratumumab, improved with symptomatic therapy. I reviewed his case with Dr. Quique Hall of Malignant Hematology--we added Revlimid 5mg every other day following significant reduction of light chains--this was started in early April. 05/07/2020: As per HPI, Angel and his met with Dr. Hall 04/26/2020 with preparation for likely high-dose chemotherapy/autologous peripheral stem cell transplant if he meets criteria based on cardiopulmonary work-up. He has had greater than 90%. The patient was able to discontinue hemodialysis on 04/24/2020 and has not had any recurrence of edema with now improved renal function, creatinine clearance now 53. --I will continue current therapy with further evaluation by Dr. Hall in 1 month for planning his HDC/autologous stem cell transplant. We will send repeatmyeloma labs (SPEP, IgG, kappa/lambda light chains) in 4 weeks with f/u visit with me the following week to review results as well as evaluation with Dr. Hall for possible stem cell transplant. 06/04/2020: Tolerating chemotherapy well other than increasing neuropathy of hands and feet. I will dose reduce Velcade by 25% next cycle. Likely hold therapy after mid Jun for planned stem cell harvest and transplant planning. I will contact Dr. Hall for planned timing. F/u with me in one month. Add dailyferrous sulfate. --He was referred to diabetes management clinic and sees Dr. Heath with regularfollow-up by Dr. Rahman since he is off dialysis. Diabetes control improved. This is a moderate complexity visit over 30 minutes for symptom review and coordination of care with tertiary malignant hematology referral, and review of laboratories/further plan for therapy, and ongoing counseling treatment course with patient and his . (2) Iron deficiency anemia Increased leg cramps recently with low iron saturation. Ferritin inappropriately normal due to inflammation from myeloma. Daily oral iron added due to symptomatic leg cramps and persistent anemia. (3) Chemotherapy-induced peripheral neuropathy 25% dose reduction Velcade today due to reports of increased pain from neuropathy in fingers and feet. Reassess at followup with me in one month. (4) History of hemodialysis Initiated inpatient hemodialysis 02/2020, then transitioned to outpatient hemodialysis 3 times weekly Thursday//Thursday schedule. Chemotherapy given Thursday/. I explained to patient and his that with light chainnephropathy once we have reduction of light chains, we hoped to reverse his renal failure and potentially he may stop dialysis in the future (likely over several months). He was actually able to stop dialysis within 2 months with thelast session 04/24/2020 as noted above. High-dose chemotherapy with autologous stem cell transplant was offered by Dr. Hall met at [facility] based on his good physiologic health despite his advanced age if cardiopulmonary work-up for this is suitable. Dr. Hall plans to proceed with HDC/PBSCT in late June given his significant response to initial myeloma directed therapy. For now we will continue daratumumab, Velcade (with 25% DR for neuropathy), dexamethasone, and low-dose Revlimid. (5) Steroid-induced diabetes mellitus Qualifiers: Encounter type: subsequent encounter Qualified Code(s): E09.9 - Drug or chemical induced diabetes mellitus without complications; T38.0X5D - Adverse effect of glucocorticoids and synthetic analogues, subsequent encounter Patsy had an excellent response of light chains but was noted to have significant hyperglycemia 300-500 fasting blood sugars. He was referred to diabetes management clinic with addition of insulin therapy that has significantly improved control of his blood sugars. Patient also had remarked on some blurred vision that improved with control of blood sugars. Continue follow-up of blood sugars with each week of dexamethasone therapy, daratumumab, Velcade, and low-dose Revlimid. Increased peripheral neuropathy complaints are now in bilateral hands and feet with planned 25% dose reduction of Velcade today(previously neuropathy only in third through fifth fingers of the left hand which he had prior to commencing therapy). (6) B12 deficiency Patient was found to have B12 deficiency and was been placed on daily B12 prior to hospital discharge. We continued weekly IM B12 for 8 weeks with his myeloma regimen. Hemoglobin is improved on Aranesp and weekly B12, then changed to monthly maintenance therapy. He has not required further blood transfusions since 03/15/2020. Follow- up methylmalonic acid on 04/30/2020 was normal showing adequate replacement. He will continue monthly IM B12 and weekly vitamin D2 therapy 50,000 units orally for low 25 hydroxy vitamin D stores. He may take supplemental calcium once daily. (7) Superficial thrombophlebitis of left upper extremity Previous left arm swelling and pain. Venous doppler ultrasound showed superficial thrombosis--I discussed with Dr. Rahman and we added heparin to dialysis. Now left arm swelling and discomfort improved. Will continue to follow with further cycles of chemotherapy. (8) Encounter for chemotherapy management Started cycle 1 day 1 03/12/2020: Daratumumab 16 mg/kg IV weekly, bortezomib 1.3 mg/kg subcu twice weekly, dexamethasone 40 mg weekly. We added Revlimid 5 mg every other day of each 21-day cycle with cycle 2 due to excellent reduction of kappa light chains (recommended by Dr. [facility]). 06/04/2020: 25% DR Avila (100% all other meds) due to worsening neuropathy. Plan for HDC/PBSCT in late June 2020. - Chemo Plan Chemo Plan (Dose, Rate, Freq): Daratumumab 16 mg/kg IV weekly, bortezomib 1.3 mg/kg subcu twice weekly, dexamethasone 40 mg weekly for each 21-day cycle as directed (cycle 1 day 1 03/12/2020). Added Revlimid 5mg every other day as directed by Dr. Hall early Apr 2020. --25% DR Watts 06/04/2020. HDC (Melphalan)/PBSCT in late Jun 2020. Goal of Treatment: Control - Time with Patient Total Time Spent with Patient: 30 min Coordination of Care & Counseling Time: Greater than 50% of time spent with patient was for coordination of care (as documented) and [id number] counseling of patient and/or family. Dictated By: Brook Huddleston MD DD/ [id number] Signed By: <Electronically signed by MD Brook Huddleston> 06/04/20 1242 [facility] Work Phone: [phone] 225-470009-21-2020 Progress note Author Brook Huddleston [facility] May 07, 2020 10:50am Note Date/Time May 07, 2020 9:10am [facility] [place] [address] Hem/Onc Follow Up Note - OP Signed Patient: Patsy Mills MR#: [id number] : 1945 Acct:[id number] Age/Sex: 75 / M Type: REG RCR Copies to: MD Helen Jaramillo MD~ Subjective Date/Time of Service: Date of Service: 05/07/2020 Time of Service: 08:30 Chief Complaint: Patient is here for follow up before treatment today, no concerns voiced. HPI: 05/07/2020: Patsy is here for 1 month follow-up. Outpatient hemodialysis was stopped after 04/24/2020 due to excellent response. He was evaluated by Dr. Small at [facility] on 04/26/2020. Angel and his note that Dr. Hall felt that he was physiologically about 8 years younger than his chronologic age and would likely be transplant eligible if pretransplant work-up deems this feasible. He recommended continuing current daratumumab and Velcade with low-dose Revlimid. He will reevaluate patient in 1 month and likely plan admission for stem cell collection, then high-dose chemotherapy/autologous stem cell transplantation in June or July. The patient's was concerned that she did not understand much of the pretransplant teaching and I explained to her and Don the pathophysiology of plasma cells, light chains, his improving trend of renal function, goal of 90% kappa/lambda ratio reduction prior to transplant. We also refilled Revlimid 5 mg every other day, weekly vitamin D, and I am giving him a trial of tramadol 50 mg every 12 hours as Tylenol is not effective for his pain and we are avoiding NSAIDs and additional aspirin. He otherwise has no toxicities of chemotherapy. He sees Dr. Hetah for follow-up tomorrow and maintains insulin with stabilization of his blood sugars following with diabetes management clinic. I will see him in follow-up with myeloma labs in 1 month plan end of therapy prior to transplant. 04/09/2020: Here for one month f/u with his . He continues outpatient hemodialysis on Thursday//Saturdays. He notes fatigue, but generalized edema remarkably improved with no significant pain. I reviewed his M-spike, IgGand kappa light chains with K/L ratio that has remarkably improved (>90% reduction past month). [place] light chains decreased from 12,000 to 42. Only concern is significant hyperglycemia with dexamethasone. 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 I will coordinate evaluation by Dr. Quique Hall for HDC/autologous stem cell transplantevaluation and hold on adding Revlimid since significant response of light chains noted. I contacted Dr. Rahman of nephrology to consider reducing hemodialysis days to twice weekly. I will send myeloma labs in about 4 weeks, have him see Dr. Hall and f/u with me the following week to review plan and determine whether plan for HDC/stem cell transplant. 03/14/2020: Patient presents with his today after initiating both outpatienthemodialysis on Thursday//Saturdays and initial cycle of daratumumab, bortezomib, dexamethasone with potential addition of Revlimid after 1 month if less than optimal response. He received his first cycle of combination chemotherapy 03/12/2020. --Patient tolerated initial daratumumab infusion reasonably well with brief infusion reaction (dizziness and mild wheezing) that was treated with diphenhydramine, steroids, albuterol, and Demerol for rigors. He completed remaining infusion in an outpatient bed on the inpatient [facility] Thursday and we anticipate further weekly daratumumab infusions as an outpatient. --Patient was seen at dialysis today and noted to have hemoglobin 6.8. He will receive 1 unit of packed red blood cells prior to Velcade today for scheduled tomorrow. His was unable to be present at the hospital at time of diagnosis and his initial bone marrow biopsy was performed on 03/08/2020. She requests evaluation with him today for extensive questions regarding his care. She reported her session and requested a copy of this progress note following our visit today. 1. She asked if all the tests at the hospital returned. We discussed the teststhat are used to follow-up myeloma including his elevated IgG, elevated free kappa light chains, and elevated M spike. We discussed in detail the pathophysiology of myeloma but she felt very anxious and overwhelmed and I reassured her that we will readdress this at further follow-up visits. 2. Patient had a metastatic bone survey showing no areas of lytic disease or pathologic fractures. We discussed CRAB criteria for multiple myeloma diagnosisand that he meets criteria of R renal and A anemia, but not elevated calcium or bone disease (C and B). She specifically asked is stage of multiple myeloma andwe noted that he still will require beta-2 glycoprotein (ISS) but is most consistent with stage III. We are still awaiting his chromosomal abnormalities by fluorescence in situ hybridization and will readdress at next follow-up visitwith his final bone marrow biopsy results (this study was only performed 03/08/2020). 3. She wanted to know if his testing showed cancer elsewhere. We discussed that since metastatic bone survey showed more lytic areas I do not feel that F-18 PET is high priority but this may be ordered at some point to assess for any asymptomatic bony metastatic disease. 4. He has recently had elevated blood sugars and does not have a history of diabetes, but we discussed that with weekly steroids he should likely have additional insulin on his steroid days. I offered that this could be managed byhis primary physician Dr. Heath and he could be referred for diabetes management clinic. 5. We reiterated multiple times that his schedule may be variable. He will typically have a long infusion on Mondays with daratumumab but initially he will present twice weekly for Velcade injection on Mondays and . This will change during the course of his therapy and he should refer to his calendar. 6. We discussed not taking additional vitamins unless approved by nephrology. I also discussed potentially adding Revlimid and we will address at future visits if this is needed based on his follow-up labs ordered 04/02/2020. His medications may be filled either locally or with his prescription plan, but manyof these will be ordered by nephrology. He is to continue vitamin D2 as recommended by nephrology. Blood pressure medications will be regulated by primary care and nephrology. 7. We discussed concerning side effects, most commonly hyperglycemia, insomnia,risk of thrombosis (recently was diagnosed with left superficial thrombosis of the left upper extremity and additional heparin is given with his dialysis), andneuropathy with Velcade. Patients do not tend to have significant nausea or possible appetite (effects of dexamethasone increase his appetite). I cannot recommend medical marijuana and would discuss this with his pre coder whetherthis would interfere with dialysis. We will also follow closely for cytopenias and reviewed infectious precautions. He has a son from [place] who plans to visit on Thursday and we discussed COVID-19 testing appropriate social isolation protocols. 8. We discussed whether he was eligible for transplant and this will be evaluated based on his response and overall health in likely 3 to 4 months afterinitiation of therapy. We did not discuss autologous stem cell transplant in detail. We did discuss that although this is not curative therapy, many patients are controlled with medication over longer periods of time (often 5 to 6 years) with appropriate therapy. It is an aggressive cancer due to its significant infectious risk and association with renal failure. 9. Exercise may be performed as tolerated but should be done in moderation and likely we should wait a few weeks for more significant exercise given his recentdialysis and initiation of chemotherapy. I did not specifically address his diet but he may address this with our [facility] nutrition team. He will also receivechemotherapy class with our nurses in the infusion center. PRELIMINARY HISTORY (from initial consult 03/08/2020): This is a 75-year-old male who was transferred from [place] emergency room by [facility] due to critical potassium 8.7 with elevated creatinine 11.2 and BUN 82 on 03/04/2020. We do not have any recent blood work for comparison but he hadnormal creatinine in 2011. He was urgently treated for his hyperkalemia and dialysis was arranged emergently by nephrology team. He has now stabilized on dialysis and had extensive work-up for etiology of his acute renal failure with severe anemia felt to be due to anemia of renal insufficiency. Iron studies returned normal with ferritin 160, but B12 low at 84 and folate low normal at 5.2. He is receiving appropriate B12 repletion. The patient reports that he has had a prolonged period of fatigue up to a year and has decreased appetite with subjective weight loss. He denies any significant bone pain other than pain in his right shoulder and has no prior falls or recurrent back pain. He had a shoulder film showing labral pathology of the joint but no fracture or dislocation. Myeloma labs were sent showing M spike 3.6 g/dL with serum immunofixation showing IgG kappa light chain specificity. Serum IgG markedly elevated at 5312 and free kappa light chain 12,649.9 with normal free lambda light chain 11.94 free kappa/lambda ratio 1063. Hepatitis A, B, and C serologies were all negative and COVID-19 screening was negative. LORE, c-ANCA, p-ANCA, anti-GBM, and antimyeloperoxidase were all negative. Clinically the patient has multiple myeloma and I explained that we needed to proceed with bone marrow aspiration and biopsy to provide baseline for diagnosis and to expedite chemotherapy with an aggressive regimen to reduce his light chains. I will review information with him at noon today around the time of his bone marrow biopsy for combinationdaratumumab 16 mg/kg IV weekly, bortezomib 1.3 mg/kg subcu twice weekly, dexamethasone 40 mg weekly, and Revlimid 25 mg p.o. daily days 1 through 14 of each 21-day cycle. Revlimid will be ordered through a special pharmacy. We will schedule his infusions as an outpatient early next week on his nondialysis days. Written literature for these medications will be provided and he may signinformed consent so that we may order this regimen as an outpatient. The patient's is not with him today but has been treated by me for breast cancer in the past and had multiple questions. We would like to arrange a time for her to be available to ask questions and be present for chemo consent, possibly around noon today. This will need to be coordinated with nursing staffdue to COVID-19 visitor restriction policy. - Summary of Therapies Summary of Therapies: Cycle 1 day 1 03/12/2020: Daratumumab 16 mg/kg IV weekly, bortezomib 1.3 mg/kg subcu twice weekly, dexamethasone 40 mg weekly. 04/09/2020: Under direction of Dr. Hall, in early April we added Revlimid 5 mg every other day of each 21-day cycle with cycle 2 due to excellent response of kappa light chains. 04/26/2020: [facility] eval for possible high-dose chemotherapy/autologous stem cell transplant. He was able to stop dialysis 04/24/2020. ROS Details: All systems reviewed & no additional complaints except as documented Subjective/ROS - Narrative: CONSTITUTIONAL: Positive for fatigue at least 1 year (this is persistent), negative for fever or night sweats. No recent infections. HEAD AND NECK: Positive for significant worsening of blurring of vision over thelast year which he attributed to his diabetes mellitus--improving over the past month with improving glucose control. Negative for changes in hearing. Negativefor mouth ulcers, nasal congestion and nasal drainage. PULMONARY: Negative for chest pain, cough and dyspnea. CARDIOVASCULAR: Negative for claudication and irregular heartbeat/palpitations. Resolved edema since diagnosis, now off dialysis. GASTROINTESTINAL: Negative for abdominal pain, constipation, diarrhea, nausea orvomiting. Positive for decreased appetite and 10 kg weight loss after starting dialysis and chemotherapy for light chain nephropathy--now stable past month. GENITOURINARY: Negative for dysuria and hematuria. Patient now with improved urinary output, diagnosed in February 2020 with renal failure requiring dialysis--off dialysis 04/24/2020. Prior nephrolithiasis previously followed by Dr. Seals. ENDOCRINE: Negative for cold intolerance and heat intolerance. Positive for significant hyperglycemia with home blood sugars in the 200s to 300s range--now improved to low 100s on supplemental insulin glargine. CENTRAL NERVOUS SYSTEM: Negative for gait disturbance and headache. No focal neurologic deficits or history of stroke. PSYCHIATRIC: Negative for anxiety or depression. DERMATOLOGICAL: Negative for pruritus and rash. Negative for suspicious skin lesions. MUSCULOSKELETAL: Negative for back pain and bone/joint symptoms other than left shoulder pain as per HPI with unremarkable imaging. Added tramadol 50 mg every 6 hours as needed 05/07/2020. HEMATOLOGICAL: Negative for bleeding and easy bruising. Negative for history of transfusion (other than 1 unit packed red blood cells prior admission). Positive for left basilic vein thrombus on Doppler ultrasound 03/12/2020. ALLERGY: Negative for environmental allergies and food allergies. [facility] - History Attestation statement: The following information was validated with the patient. Source: Old Records Reviewed - Medical History Medical History: Medical History (Last Reviewed 05/07/20 @ 09:49 by Brook Huddleston MD) Apnea Arthritis Diabetes mellitus, type 2 Hyperlipidemia Hypertension Kidney stones Skin cancer - Family History Family History: Family History (Last Reviewed 05/07/20 @ 09:49 by Brook Huddleston MD) Sister Myocardial infarct Mother Myocardial infarct Father Skin cancer - Social History Smoking Status: Former smoker Tobacco Type: cigarettes Substance Use Type: None Home Medications & Allergies Allergies No Known Allergies Allergy (Verified 03/04/20 08:33) Home Medications docusate sodium [DOK] 100 mg PO BID #30 cap 03/10/20 [Rx Confirmed 04/27/20] famotidine 20 mg PO DAILY #30 tab 03/10/20 [Rx Confirmed 04/27/20] furosemide 40 mg PO BID@0800,1600 #60 tab 03/10/20 [Rx Confirmed 04/27/20] hydralazine 50 mg PO BID #60 tab 03/10/20 [Rx Confirmed 04/27/20] rosuvastatin [Crestor] 5 mg PO DAILY #30 tab 03/10/20 [Rx Confirmed 04/27/20] zolpidem [Ambien] 5 mg PO QHS 20 Days #20 tab 03/11/20 [Rx Confirmed 04/27/20] acetaminophen [Tylenol] 650 mg PO DAILY PRN 04/27/20 [History Confirmed 04/27/20] aspirin [Aspirin Low Dose] 81 mg PO DAILY 04/27/20 [History Confirmed 04/27/20] insulin glargine [Lantus Solostar U-100 Insulin] 40 unit SUBCUT DAILY 04/27/20 [History Confirmed 05/07/20] insulin lispro [Humalog KwikPen Insulin] 6 - 16 unit SUBCUT DIRECTED 04/27/20[History Confirmed 04/27/20] ergocalciferol (vitamin D2) 50,000 unit PO Mo@0900 60 Days #8 cap 05/07/20 [Rx] insulin NPH isoph U-100 human [Humulin N NPH U-100 Insulin] 30 unit SUBCUT DIRECTED 05/07/20 [History Confirmed 05/07/20] lenalidomide [Revlimid] 5 mg PO Q48HR 28 Days #11 cap 05/07/20 [Rx] tramadol 50 mg PO Q6H PRN 30 Days #60 tab 05/07/20 [Rx] Objective - Height/Weight Height/Weight: Height 5 ft 11 in Weight 92.9 kg BSA for Today's Weight 2.16 - Vital Signs Vital Signs: 05/07/20 08:36 Temperature 97.2 F L Pulse Rate [Monitor] 80 Respiratory Rate 20 Blood Pressure [Right Arm] 130/67 02 Sat by Pulse Oximetry 98 - Pain Right Hip Pain Intensity: 3 Left Upper Arm Pain Intensity: 4 - Emotional Needs Assessment Emotional Needs Assessment: Emotional Needs Identified? No Distress Screening Total 0 - ECOG Performance Status ECOG Score: 1 Physical Exam Narrative: CONSTITUTIONAL: The patient is in no acute distress. He does appear fatigued. HEAD / FACE: Normocephalic. EYES: Pupils are equal and reactive to light. Conjunctivae and lids are benign in appearance. Ocular movement intact. EARS: Hearing grossly intact. NOSE / MOUTH / THROAT: Nose, mouth, tongue and oropharynx are benign in appearance. No signs of inflammation. NECK / THYROID: Neck is supple. Thyroid is symmetrical, without thyromegaly, masses or palpable nodules. LYMPHATIC: No palpable cervical, supraclavicular, axillary, or inguinal adenopathy. RESPIRATORY: Normal to inspection. Lungs clear to auscultation and percussion. No wheezing, rales, rhonchi or rubs. Normal effort. CARDIOVASCULAR: Regular rate and rhythm. No murmurs, gallops, or rubs. VASCULAR: Carotid, radial, femoral and pedal pulses present bilaterally. No bruits. ABDOMEN: Bowel sounds normoactive. Soft, nontender and non-distended. No hepatosplenomegaly. No masses. GENITOURINARY: No CVA tenderness. No suprapubic fullness or tenderness. No groinadenopathy. No evidence of hernias. INTEGUMENTARY: The skin is unremarkable. No rashes. No suspicious lesions BACK / SPINE: The back is nontender. No step-off deformity. No CVA tenderness. MUSCULOSKELETAL: Normal musculature, no joint deformities or abnormalities, normal range of motion for all four extremities. EXTREMITIES: No longer has bilateral lower extremity edema; no cyanosis or clubbing. No Vitor sign. NEUROLOGICAL: Alert and oriented. Cranial nerves intact. No gross motor or sensory deficits. PSYCHIATRIC: No anxiety or evidence of depression. Results - Labs Labs: Diagram of Most Recent CBC and CMP 05/07/20 08:19 05/07/20 08:19 Labs - Last 7 Days 05/07/20 08:19: PHA Creatinine Clear 56.31, Sodium 135 L, Potassium 3.4 L, Chloride 101, Carbon Dioxide 24.7, BUN 19, Creatinine 1.32 H, Est GFR ( Amer) > 60, Est GFR (Non-Af Amer) 53, Glucose 113 H, Calcium 9.0, Total Bilirubin 0.6, AST 42, ALT 40, Alkaline Phosphatase 104 H, Total Protein 5.9 L, Albumin 3.4, Globulin 2.5, Albumin/Globulin Ratio 1.4 05/07/20 08:19: WBC 5.3, Corrected WBC 5.3, RBC 2.73 L, Hgb 9.3 L, Hct 26.9 L, MCV 98.6, MCH 34.1, MCHC 34.6, RDW 17.8 H, Plt Count 81 L, MPV 10.3 H, Neut % (Auto) 59.7, Lymph % (Auto) 19.5, [place] % (Auto) 16.9, Eos % (Auto) 3.4, Baso % (Auto) 0.5, Neut # (Auto) 3.2, Lymph # (Auto) 1.0, [place] # (Auto) 0.9 H, Eos # (Auto) 0.2, Baso # (Auto) 0.0, Nucleated RBC % (auto) 0.3 04/30/20 09:10: Urine Immunofixation 04/30/20 08:15: Serum Total Protein 6.0, Albumin (Send Out) 3.2, Globulin (PEP) 2.8, Albumin/Globulin (PEP) 1.1, Zowad-0-Owactarzz 0.3, Xkuri-4-Qkmqfofec 1.1 H,Beta Globulins 0.7, Gamma Globulins 0.7, M-Anselmo 0.5 H, PEP Note , MethylmalonicAcid 183, MMA Comment , IgG 763, IgA 36 L, IgM 31, Free [place] LC, Quant 22.5 H, Free Lambda LC, Quant 8.4, Free [place]/Lambda Ratio 2.68 H - Impressions No new imaging for review. 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 He has marked elevation in IgG kappa on initial laboratory work-up for renal failure in February 2020. He has remained hemodynamically stable and I discussed in detail with the patient the pathophysiology of multiple myeloma and associated injury to kidneys, persistentanemia, bone disease, and potential hypercalcemia (we do not see hypercalcemia in this patient). He consented to inpatient bone marrow biopsy 03/08/2020 which was diagnostic for multiple myeloma--70% plasma cells without amyloid depositionidentified in small marrow specimen. Normal baseline skeletal survey. I reviewed pathophysiology of myeloma, results of bone marrow biopsy, skeletal survey, and myeloma labs with the patient and his . Patsy consented to begin first cycle Daratumumab, Velcade, and dexamethasone on03/12/2020--other than infusion reaction from first Daratumumab, improved with symptomatic therapy. I reviewed his case with Dr. Quique Hall of Malignant Hematology--we added Revlimid 5mg every other day following significant reduction of light chains--this was started in early April. 05/07/2020: As per HPI, Angel and his met with Dr. Hall 04/26/2020 with preparation for likely high-dose chemotherapy/autologous peripheral stem cell transplant if he meets criteria based on cardiopulmonary work-up. He has had greater than 90%. The patient was able to discontinue hemodialysis on 04/24/2020 and has not had any recurrence of edema with now improved renal function, creatinine clearance now 53. --I will continue current therapy with further evaluation by Dr. Hall in 1 month for planning his HDC/autologous stem cell transplant. We will send repeatmyeloma labs (SPEP, IgG, kappa/lambda light chains) in 4 weeks with f/u visit with me the following week to review results as well as evaluation with Dr. Hall for possible stem cell transplant. --He was referred to diabetes management clinic and has follow-up appointment with Dr. Heath tomorrow with regular follow-up by Dr. Rahman since he is off dialysis. This is a high complexity visit over 45 minutes for coordination of care with his primary physician, nephrology, and tertiary malignant hematology referral, and review of laboratories/further plan for therapy, and ongoing counseling treatment course with patient and his . (2) History of hemodialysis Initiated inpatient hemodialysis 02/2020, then transitioned to outpatient hemodialysis 3 times weekly Thursday//Thursday schedule. Chemotherapy given Thursday/. 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 He was actually able to stop dialysis within 2 months with the last session 04/24/2020 as noted above. High-dose chemotherapy with autologous stem cell transplant is an option in somepatients, and Dr. Hall meant with Mr. Mills and determine that based on his good physiologic health despite his advanced age that he is a candidate for high dose chemotherapy/stem cell transplant if cardiopulmonary work-up for this is suitable. Dr. Hall well discuss the case with [facility] hematology tumor board given his significant response to initial myeloma directed therapy. For now we will continue daratumumab, Velcade, dexamethasone, and low-dose Revlimid. (3) Steroid-induced diabetes mellitus Qualifiers: Encounter type: initial encounter Qualified Code(s): E09.9 - Drug or chemical induced diabetes mellitus without complications; T38.0X5A - Adverse effect ofglucocorticoids and synthetic analogues, initial encounter Patsy has had an excellent response of light chains but was noted to have significant hyperglycemia 300-500 fasting blood sugars. He was referred to diabetes management clinic with addition of insulin therapy that has significantly improved control of his blood sugars. Patient also had remarked on some blurred vision that has improved with control blood sugars. Continue follow-up of blood sugars with each week of dexamethasone therapy, daratumumab, Velcade, and low-dose Revlimid. His only peripheral neuropathy complaints are in his third through fifth fingers of the left hand which he had prior to commencing therapy. (4) B12 deficiency Patient was found to have B12 deficiency and was been placed on daily B12 prior to hospital discharge. We continued weekly IM B12 for 8 weeks with his myeloma regimen. Today hemoglobin is improved to 9.3 on Aranesp and weekly B12 will be changed to monthly maintenance therapy. He has not required further blood transfusions since 03/15/2020. Follow-up methylmalonic acid on 04/30/2020 was normal showing adequate replacement. He will continue weekly vitamin D2 [id number],000 units orally for low 25 hydroxy vitamin D stores. He may take supplemental calcium once daily. (5) Anemia of renal disease This will be managed by nephrology with erythrocyte stimulating agent with ongoing B12 repletion--now that he is off dialysis we may consider stopping her aspirin therapy, will defer to Dr. Rahman. (6) Superficial thrombophlebitis of left upper extremity Previous left arm swelling and pain. Venous doppler ultrasound showed superficial thrombosis--I discussed with Dr. Rahman and we added heparin to dialysis. Today arm swelling and discomfort improved. Will continue to follow with further cycles of chemotherapy. (7) Encounter for chemotherapy management Started cycle 1 day 1 03/12/2020: Daratumumab 16 mg/kg IV weekly, bortezomib 1.3 mg/kg subcu twice weekly, dexamethasone 40 mg weekly. We added Revlimid 5 mg every other day of each 21-day cycle with cycle 2 due to excellent reduction of kappa light chains (recommended by Dr. Hall malignanthematology). - Chemo Plan Chemo Plan (Dose, Rate, Freq): Daratumumab 16 mg/kg IV weekly, bortezomib 1.3 mg/kg subcu twice weekly, dexamethasone 40 mg weekly for each 21-day cycle as directed (cycle 1 day 1 03/12/2020). Add Revlimid 5mg every other day as directed by Dr. Hall early . Goal of Treatment: Control - Time with Patient Coordination of Care & Counseling Time: Greater than 50% of time spent with patient was for coordination of care (as documented) and [id number] counseling of patient and/or family. Dictated By: Brook Huddleston MD DD/ 8 Signed By: <Electronically signed by MD Brook Huddleston> 05/07/20 0245 [facility] Work Phone: [phone]) 746-944309-21-2020 Progress note Author Brook Huddleston [facility] May 07, 2020 10:50am Note Date/Time May 07, 2020 9:10am [facility] [place] [address] Hem/Onc Follow Up Note - OP Signed Patient: Patsy Mills MR#: [id number] : 1945 Acct:[id number] Age/Sex: 75 / M Type: REG RCR Copies to: MD Helen Jaramillo MD~ Subjective Date/Time of Service: Date of Service: 05/07/2020 Time of Service: 08:30 Chief Complaint: Patient is here for follow up before treatment today, no concerns voiced. HPI: 05/07/2020: Patsy is here for 1 month follow-up. Outpatient hemodialysis was stopped after 04/24/2020 due to excellent response. He was evaluated by Dr. Small at [facility] on 04/26/2020. Angel and his note that Dr. Hall felt that he was physiologically about 8 years younger than his chronologic age and would likely be transplant eligible if pretransplant work-up deems this feasible. He recommended continuing current daratumumab and Velcade with low-dose Revlimid. He will reevaluate patient in 1 month and likely plan admission for stem cell collection, then high-dose chemotherapy/autologous stem cell transplantation in June or July. The patient's was concerned that she did not understand much of the pretransplant teaching and I explained to her and Don the pathophysiology of plasma cells, light chains, his improving trend of renal function, goal of 90% kappa/lambda ratio reduction prior to transplant. We also refilled Revlimid 5 mg every other day, weekly vitamin D, and I am giving him a trial of tramadol 50 mg every 12 hours as Tylenol is not effective for his pain and we are avoiding NSAIDs and additional aspirin. He otherwise has no toxicities of chemotherapy. He sees Dr. Heath for follow-up tomorrow and maintains insulin with stabilization of his blood sugars following with diabetes management clinic. I will see him in follow-up with myeloma labs in 1 month plan end of therapy prior to transplant. 04/09/2020: Here for one month f/u with his . He continues outpatient hemodialysis on Thursday//Saturdays. He notes fatigue, but generalized edema remarkably improved with no significant pain. I reviewed his M-spike, IgGand kappa light chains with K/L ratio that has remarkably improved (>90% reduction past month). [place] light chains decreased from 12,000 to 42. Only concern is significant hyperglycemia with dexamethasone. 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 I will coordinate evaluation by Dr. Quique Hall for HDC/autologous stem cell transplantevaluation and hold on adding Revlimid since significant response of light chains noted. I contacted Dr. Rahman of nephrology to consider reducing hemodialysis days to twice weekly. I will send myeloma labs in about 4 weeks, have him see Dr. Hall and f/u with me the following week to review plan and determine whether plan for HDC/stem cell transplant. 03/14/2020: Patient presents with his today after initiating both outpatienthemodialysis on Thursday//Saturdays and initial cycle of daratumumab, bortezomib, dexamethasone with potential addition of Revlimid after 1 month if less than optimal response. He received his first cycle of combination chemotherapy 03/12/2020. --Patient tolerated initial daratumumab infusion reasonably well with brief infusion reaction (dizziness and mild wheezing) that was treated with diphenhydramine, steroids, albuterol, and Demerol for rigors. He completed remaining infusion in an outpatient bed on the inpatient [place] Thursday and we anticipate further weekly daratumumab infusions as an outpatient. --Patient was seen at dialysis today and noted to have hemoglobin 6.8. He will receive 1 unit of packed red blood cells prior to Velcade today for scheduled tomorrow. His was unable to be present at the hospital at time of diagnosis and his initial bone marrow biopsy was performed on 03/08/2020. She requests evaluation with him today for extensive questions regarding his care. She reported her session and requested a copy of this progress note following our visit today. 1. She asked if all the tests at the hospital returned. We discussed the teststhat are used to follow-up myeloma including his elevated IgG, elevated free kappa light chains, and elevated M spike. We discussed in detail the pathophysiology of myeloma but she felt very anxious and overwhelmed and I reassured her that we will readdress this at further follow-up visits. 2. Patient had a metastatic bone survey showing no areas of lytic disease or pathologic fractures. We discussed CRAB criteria for multiple myeloma diagnosisand that he meets criteria of R renal and A anemia, but not elevated calcium or bone disease (C and B). She specifically asked is stage of multiple myeloma andwe noted that he still will require beta-2 glycoprotein (ISS) but is most consistent with stage III. We are still awaiting his chromosomal abnormalities by fluorescence in situ hybridization and will readdress at next follow-up visitwith his final bone marrow biopsy results (this study was only performed 03/08/2020). 3. She wanted to know if his testing showed cancer elsewhere. We discussed that since metastatic bone survey showed more lytic areas I do not feel that F-18 PET is high priority but this may be ordered at some point to assess for any asymptomatic bony metastatic disease. 4. He has recently had elevated blood sugars and does not have a history of diabetes, but we discussed that with weekly steroids he should likely have additional insulin on his steroid days. I offered that this could be managed byhis primary physician Dr. Heath and he could be referred for diabetes management clinic. 5. We reiterated multiple times that his schedule may be variable. He will typically have a long infusion on Mondays with daratumumab but initially he will present twice weekly for Velcade injection on Mondays and . This will change during the course of his therapy and he should refer to his calendar. 6. We discussed not taking additional vitamins unless approved by nephrology. I also discussed potentially adding Revlimid and we will address at future visits if this is needed based on his follow-up labs ordered 04/02/2020. His medications may be filled either locally or with his prescription plan, but manyof these will be ordered by nephrology. He is to continue vitamin D2 as recommended by nephrology. Blood pressure medications will be regulated by primary care and nephrology. 7. We discussed concerning side effects, most commonly hyperglycemia, insomnia,risk of thrombosis (recently was diagnosed with left superficial thrombosis of the left upper extremity and additional heparin is given with his dialysis), andneuropathy with Velcade. Patients do not tend to have significant nausea or possible appetite (effects of dexamethasone increase his appetite). I cannot recommend medical marijuana and would discuss this with his pre coder whetherthis would interfere with dialysis. We will also follow closely for cytopenias and reviewed infectious precautions. He has a son from [place] who plans to visit on Thursday and we discussed COVID-19 testing appropriate social isolation protocols. 8. We discussed whether he was eligible for transplant and this will be evaluated based on his response and overall health in likely 3 to 4 months afterinitiation of therapy. We did not discuss autologous stem cell transplant in detail. We did discuss that although this is not curative therapy, many patients are controlled with medication over longer periods of time (often 5 to 6 years) with appropriate therapy. It is an aggressive cancer due to its significant infectious risk and association with renal failure. 9. Exercise may be performed as tolerated but should be done in moderation and likely we should wait a few weeks for more significant exercise given his recentdialysis and initiation of chemotherapy. I did not specifically address his diet but he may address this with our [facility] nutrition team. He will also receivechemotherapy class with our nurses in the infusion center. PRELIMINARY HISTORY (from initial consult 03/08/2020): This is a 75-year-old male who was transferred from [place] emergency room by [facility] due to critical potassium 8.7 with elevated creatinine 11.2 and BUN 82 on 03/04/2020. We do not have any recent blood work for comparison but he hadnormal creatinine in 2011. He was urgently treated for his hyperkalemia and dialysis was arranged emergently by nephrology team. He has now stabilized on dialysis and had extensive work-up for etiology of his acute renal failure with severe anemia felt to be due to anemia of renal insufficiency. Iron studies returned normal with ferritin 160, but B12 low at 84 and folate low normal at 5.2. He is receiving appropriate B12 repletion. The patient reports that he has had a prolonged period of fatigue up to a year and has decreased appetite with subjective weight loss. He denies any significant bone pain other than pain in his right shoulder and has no prior falls or recurrent back pain. He had a shoulder film showing labral pathology of the joint but no fracture or dislocation. Myeloma labs were sent showing M spike 3.6 g/dL with serum immunofixation showing IgG kappa light chain specificity. Serum IgG markedly elevated at 5312 and free kappa light chain 12,649.9 with normal free lambda light chain 11.94 free kappa/lambda ratio 1063. Hepatitis A, B, and C serologies were all negative and COVID-19 screening was negative. LORE, c-ANCA, p-ANCA, anti-GBM, and antimyeloperoxidase were all negative. Clinically the patient has multiple myeloma and I explained that we needed to proceed with bone marrow aspiration and biopsy to provide baseline for diagnosis and to expedite chemotherapy with an aggressive regimen to reduce his light chains. I will review information with him at noon today around the time of his bone marrow biopsy for combinationdaratumumab 16 mg/kg IV weekly, bortezomib 1.3 mg/kg subcu twice weekly, dexamethasone 40 mg weekly, and Revlimid 25 mg p.o. daily days 1 through 14 of each 21-day cycle. Revlimid will be ordered through a special pharmacy. We will schedule his infusions as an outpatient early next week on his nondialysis days. Written literature for these medications will be provided and he may signinformed consent so that we may order this regimen as an outpatient. The patient's is not with him today but has been treated by me for breast cancer in the past and had multiple questions. We would like to arrange a time for her to be available to ask questions and be present for chemo consent, possibly around noon today. This will need to be coordinated with nursing staffdue to [facility]- visitor restriction policy. - Summary of Therapies Summary of Therapies: Cycle 1 day 1 03/12/2020: Daratumumab 16 mg/kg IV weekly, bortezomib 1.3 mg/kg subcu twice weekly, dexamethasone 40 mg weekly. 04/09/2020: Under direction of Dr. Hall, in early April we added Revlimid 5 mg every other day of each 21-day cycle with cycle 2 due to excellent response of kappa light chains. 04/26/2020: Malignant hematology eval for possible high-dose chemotherapy/autologous stem cell transplant. He was able to stop dialysis 04/24/2020. ROS Details: All systems reviewed & no additional complaints except as documented Subjective/ROS - Narrative: CONSTITUTIONAL: Positive for fatigue at least 1 year (this is persistent), negative for fever or night sweats. No recent infections. HEAD AND NECK: Positive for significant worsening of blurring of vision over thelast year which he attributed to his diabetes mellitus--improving over the past month with improving glucose control. Negative for changes in hearing. Negativefor mouth ulcers, nasal congestion and nasal drainage. PULMONARY: Negative for chest pain, cough and dyspnea. CARDIOVASCULAR: Negative for claudication and irregular heartbeat/palpitations. Resolved edema since diagnosis, now off dialysis. GASTROINTESTINAL: Negative for abdominal pain, constipation, diarrhea, nausea orvomiting. Positive for decreased appetite and 10 kg weight loss after starting dialysis and chemotherapy for light chain nephropathy--now stable past month. GENITOURINARY: Negative for dysuria and hematuria. Patient now with improved urinary output, diagnosed in February 2020 with renal failure requiring dialysis--off dialysis 04/24/2020. Prior nephrolithiasis previously followed by Dr. Seals. ENDOCRINE: Negative for cold intolerance and heat intolerance. Positive for significant hyperglycemia with home blood sugars in the 200s to 300s range--now improved to low 100s on supplemental insulin glargine. CENTRAL NERVOUS SYSTEM: Negative for gait disturbance and headache. No focal neurologic deficits or history of stroke. PSYCHIATRIC: Negative for anxiety or depression. DERMATOLOGICAL: Negative for pruritus and rash. Negative for suspicious skin lesions. MUSCULOSKELETAL: Negative for back pain and bone/joint symptoms other than left shoulder pain as per HPI with unremarkable imaging. Added tramadol 50 mg every 6 hours as needed 05/07/2020. HEMATOLOGICAL: Negative for bleeding and easy bruising. Negative for history of transfusion (other than 1 unit packed red blood cells prior admission). Positive for left basilic vein thrombus on Doppler ultrasound 03/12/2020. ALLERGY: Negative for environmental allergies and food allergies. [facility] - History Attestation statement: The following information was validated with the patient. Source: Old Records Reviewed - Medical History Medical History: Medical History (Last Reviewed 05/07/20 @ 09:49 by Brook Huddleston MD) Apnea Arthritis Diabetes mellitus, type 2 Hyperlipidemia Hypertension Kidney stones Skin cancer - Family History Family History: Family History (Last Reviewed 05/07/20 @ 09:49 by Brook Huddleston MD) Sister Myocardial infarct Mother Myocardial infarct Father Skin cancer - Social History Smoking Status: Former smoker Tobacco Type: cigarettes Substance Use Type: None Home Medications & Allergies Allergies No Known Allergies Allergy (Verified 03/04/20 08:33) Home Medications docusate sodium [DOK] 100 mg PO BID #30 cap 03/10/20 [Rx Confirmed 04/27/20] famotidine 20 mg PO DAILY #30 tab 03/10/20 [Rx Confirmed 04/27/20] furosemide 40 mg PO BID@0800,1600 #60 tab 03/10/20 [Rx Confirmed 04/27/20] hydralazine 50 mg PO BID #60 tab 03/10/20 [Rx Confirmed 04/27/20] rosuvastatin [Crestor] 5 mg PO DAILY #30 tab 03/10/20 [Rx Confirmed 04/27/20] zolpidem [Ambien] 5 mg PO QHS 20 Days #20 tab 03/11/20 [Rx Confirmed 04/27/20] acetaminophen [Tylenol] 650 mg PO DAILY PRN 04/27/20 [History Confirmed 04/27/20] aspirin [Aspirin Low Dose] 81 mg PO DAILY 04/27/20 [History Confirmed 04/27/20] insulin glargine [Lantus Solostar U-100 Insulin] 40 unit SUBCUT DAILY 04/27/20 [History Confirmed 05/07/20] insulin lispro [Humalog KwikPen Insulin] 6 - 16 unit SUBCUT DIRECTED 04/27/20[History Confirmed 04/27/20] ergocalciferol (vitamin D2) 50,000 unit PO Mo@0900 60 Days #8 cap 05/07/20 [Rx] insulin NPH isoph U-100 human [Humulin N NPH U-100 Insulin] 30 unit SUBCUT DIRECTED 05/07/20 [History Confirmed 05/07/20] lenalidomide [Revlimid] 5 mg PO Q48HR 28 Days #11 cap 05/07/20 [Rx] tramadol 50 mg PO Q6H PRN 30 Days #60 tab 05/07/20 [Rx] Objective - Height/Weight Height/Weight: Height 5 ft 11 in Weight 92.9 kg BSA for Today's Weight 2.16 - Vital Signs Vital Signs: 05/07/20 08:36 Temperature 97.2 F L Pulse Rate [Monitor] 80 Respiratory Rate 20 Blood Pressure [Right Arm] 130/67 02 Sat by Pulse Oximetry 98 - Pain Right Hip Pain Intensity: 3 Left Upper Arm Pain Intensity: 4 - Emotional Needs Assessment Emotional Needs Assessment: Emotional Needs Identified? No Distress Screening Total 0 - ECOG Performance Status ECOG Score: 1 Physical Exam Narrative: CONSTITUTIONAL: The patient is in no acute distress. He does appear fatigued. HEAD / FACE: Normocephalic. EYES: Pupils are equal and reactive to light. Conjunctivae and lids are benign in appearance. Ocular movement intact. EARS: Hearing grossly intact. NOSE / MOUTH / THROAT: Nose, mouth, tongue and oropharynx are benign in appearance. No signs of inflammation. NECK / THYROID: Neck is supple. Thyroid is symmetrical, without thyromegaly, masses or palpable nodules. LYMPHATIC: No palpable cervical, supraclavicular, axillary, or inguinal adenopathy. RESPIRATORY: Normal to inspection. Lungs clear to auscultation and percussion. No wheezing, rales, rhonchi or rubs. Normal effort. CARDIOVASCULAR: Regular rate and rhythm. No murmurs, gallops, or rubs. VASCULAR: Carotid, radial, femoral and pedal pulses present bilaterally. No bruits. ABDOMEN: Bowel sounds normoactive. Soft, nontender and non-distended. No hepatosplenomegaly. No masses. GENITOURINARY: No CVA tenderness. No suprapubic fullness or tenderness. No groinadenopathy. No evidence of hernias. INTEGUMENTARY: The skin is unremarkable. No rashes. No suspicious lesions BACK / SPINE: The back is nontender. No step-off deformity. No CVA tenderness. MUSCULOSKELETAL: Normal musculature, no joint deformities or abnormalities, normal range of motion for all four extremities. EXTREMITIES: No longer has bilateral lower extremity edema; no cyanosis or clubbing. No Vitor sign. NEUROLOGICAL: Alert and oriented. Cranial nerves intact. No gross motor or sensory deficits. PSYCHIATRIC: No anxiety or evidence of depression. Results - Labs Labs: Diagram of Most Recent CBC and CMP 05/07/20 08:19 05/07/20 08:19 Labs - Last 7 Days 05/07/20 08:19: PHA Creatinine Clear 56.31, Sodium 135 L, Potassium 3.4 L, Chloride 101, Carbon Dioxide 24.7, BUN 19, Creatinine 1.32 H, Est GFR ( Amer) > 60, Est GFR (Non-Af Amer) 53, Glucose 113 H, Calcium 9.0, Total Bilirubin 0.6, AST 42, ALT 40, Alkaline Phosphatase 104 H, Total Protein 5.9 L, Albumin 3.4, Globulin 2.5, Albumin/Globulin Ratio 1.4 05/07/20 08:19: WBC 5.3, Corrected WBC 5.3, RBC 2.73 L, Hgb 9.3 L, Hct 26.9 L, MCV 98.6, MCH 34.1, MCHC 34.6, RDW 17.8 H, Plt Count 81 L, MPV 10.3 H, Neut % (Auto) 59.7, Lymph % (Auto) 19.5, [place] % (Auto) 16.9, Eos % (Auto) 3.4, Baso % (Auto) 0.5, Neut # (Auto) 3.2, Lymph # (Auto) 1.0, [place] # (Auto) 0.9 H, Eos # (Auto) 0.2, Baso # (Auto) 0.0, Nucleated RBC % (auto) 0.3 04/30/20 09:10: Urine Immunofixation 04/30/20 08:15: Serum Total Protein 6.0, Albumin (Send Out) 3.2, Globulin (PEP) 2.8, Albumin/Globulin (PEP) 1.1, Caevm-4-Fhwrqxqka 0.3, Ifnvg-5-Cughrbdlz 1.1 H,Beta Globulins 0.7, Gamma Globulins 0.7, M-Anselmo 0.5 H, PEP Note , MethylmalonicAcid 183, MMA Comment , IgG 763, IgA 36 L, IgM 31, Free [place] LC, Quant 22.5 H, Free Lambda LC, Quant 8.4, Free [place]/Lambda Ratio 2.68 H - Impressions No new imaging for review. 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 He has marked elevation in IgG kappa on initial laboratory work-up for renal failure in February 2020. He has remained hemodynamically stable and I discussed in detail with the patient the pathophysiology of multiple myeloma and associated injury to kidneys, persistentanemia, bone disease, and potential hypercalcemia (we do not see hypercalcemia in this patient). He consented to inpatient bone marrow biopsy 03/08/2020 which was diagnostic for multiple myeloma--70% plasma cells without amyloid depositionidentified in small marrow specimen. Normal baseline skeletal survey. I reviewed pathophysiology of myeloma, results of bone marrow biopsy, skeletal survey, and myeloma labs with the patient and his . Patsy consented to begin first cycle Daratumumab, Velcade, and dexamethasone on03/12/2020--other than infusion reaction from first Daratumumab, improved with symptomatic therapy. I reviewed his case with Dr. Quique Hall of Malignant Hematology--we added Revlimid 5mg every other day following significant reduction of light chains--this was started in early April. 05/07/2020: As per HPI, Don and his met with Dr. Hall 04/26/2020 with preparation for likely high-dose chemotherapy/autologous peripheral stem cell transplant if he meets criteria based on cardiopulmonary work-up. He has had greater than 90%. The patient was able to discontinue hemodialysis on 04/24/2020 and has not had any recurrence of edema with now improved renal function, creatinine clearance now 53. --I will continue current therapy with further evaluation by Dr. Hall in 1 month for planning his HDC/autologous stem cell transplant. We will send repeatmyeloma labs (SPEP, IgG, kappa/lambda light chains) in 4 weeks with f/u visit with me the following week to review results as well as evaluation with Dr. Hall for possible stem cell transplant. --He was referred to diabetes management clinic and has follow-up appointment with Dr. Heath tomorrow with regular follow-up by Dr. Rahman since he is off dialysis. This is a high complexity visit over 45 minutes for coordination of care with his primary physician, nephrology, and tertiary malignant hematology referral, and review of laboratories/further plan for therapy, and ongoing counseling treatment course with patient and his . (2) History of hemodialysis Initiated inpatient hemodialysis 02/2020, then transitioned to outpatient hemodialysis 3 times weekly Thursday//Thursday schedule. Chemotherapy given Thursday/. 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 He was actually able to stop dialysis within 2 months with the last session 04/24/2020 as noted above. High-dose chemotherapy with autologous stem cell transplant is an option in somepatients, and Dr. Hall meant with Mr. Mills and determine that based on his good physiologic health despite his advanced age that he is a candidate for high dose chemotherapy/stem cell transplant if cardiopulmonary work-up for this is suitable. Dr. Hall well discuss the case with [facility] hematology tumor board given his significant response to initial myeloma directed therapy. For now we will continue daratumumab, Velcade, dexamethasone, and low-dose Revlimid. (3) Steroid-induced diabetes mellitus Qualifiers: Encounter type: initial encounter Qualified Code(s): E09.9 - Drug or chemical induced diabetes mellitus without complications; T38.0X5A - Adverse effect ofglucocorticoids and synthetic analogues, initial encounter Patsy has had an excellent response of light chains but was noted to have significant hyperglycemia 300-500 fasting blood sugars. He was referred to diabetes management clinic with addition of insulin therapy that has significantly improved control of his blood sugars. Patient also had remarked on some blurred vision that has improved with control blood sugars. Continue follow-up of blood sugars with each week of dexamethasone therapy, daratumumab, Velcade, and low-dose Revlimid. His only peripheral neuropathy complaints are in his third through fifth fingers of the left hand which he had prior to commencing therapy. (4) B12 deficiency Patient was found to have B12 deficiency and was been placed on daily B12 prior to hospital discharge. We continued weekly IM B12 for 8 weeks with his myeloma regimen. Today hemoglobin is improved to 9.3 on Aranesp and weekly B12 will be changed to monthly maintenance therapy. He has not required further blood transfusions since 03/15/2020. Follow-up methylmalonic acid on 04/30/2020 was normal showing adequate replacement. He will continue weekly vitamin D2 ,000 units orally for low 25 hydroxy vitamin D stores. He may take supplemental calcium once daily. (5) Anemia of renal disease This will be managed by nephrology with erythrocyte stimulating agent with ongoing B12 repletion--now that he is off dialysis we may consider stopping her aspirin therapy, will defer to Dr. Rahman. (6) Superficial thrombophlebitis of left upper extremity Previous left arm swelling and pain. Venous doppler ultrasound showed superficial thrombosis--I discussed with Dr. Rahman and we added heparin to dialysis. Today arm swelling and discomfort improved. Will continue to follow with further cycles of chemotherapy. (7) Encounter for chemotherapy management Started cycle 1 day 1 03/12/2020: Daratumumab 16 mg/kg IV weekly, bortezomib 1.3 mg/kg subcu twice weekly, dexamethasone 40 mg weekly. We added Revlimid 5 mg every other day of each 21-day cycle with cycle 2 due to excellent reduction of kappa light chains (recommended by Dr. Hall malignanthematology). - Chemo Plan Chemo Plan (Dose, Rate, Freq): Daratumumab 16 mg/kg IV weekly, bortezomib 1.3 mg/kg subcu twice weekly, dexamethasone 40 mg weekly for each 21-day cycle as directed (cycle 1 day 1 03/12/2020). Add Revlimid 5mg every other day as directed by Dr. Hall early . Goal of Treatment: Control - Time with Patient Coordination of Care & Counseling Time: Greater than 50% of time spent with patient was for coordination of care (as documented) and ghfl-vy-rfft counseling of patient and/or family. Dictated By: Brook Huddleston MD DD/ 8 Signed By: <Electronically signed by MD Brook Huddleston> 05/07/20 [address] [facility] Work Phone: [phone] Progress note Author Brook Huddleston [facility] April 12, 2020 9:26am Note Date/Time April 09, 2020 8: 49am [facility] [place] [address] Hem/Onc Follow Up Note - OP Signed with Mario Patient: Patsy Mills MR#: [id number] : 1945 Acct:[id number] Age/Sex: 75 / M Type: REG RCR Copies to: MD Quique English MD Richard R Keller, MD~ ADDENDUM1 Addendum: I met with patient 04/12 after discussion of current progress with . He recommended adding low dose Revlimid 5mg every other day (11 tabs over 21 days of each 28 day cycle). Patient is now down to 2x weekly dialysis. Has transplant evaluation with Dr. Hall on 04/26/2020. Today we reviewed chemotherapy counseling for oral Revlimid. Common and uncommon toxicities were reviewed to include allergic reaction, myelosuppression, fatigue, nausea, constipation, and thromboembolism. Other toxicities may include pneumonitis, neurologic, hepatic and renal toxicities. The patient signed informed consent and will follow-up as directed. --oral chemotherapy visit in 2 weeks. F/u with me as previously scheduled. Addendum Dictated By: MD Brook Huddleston Addendum Signed By: 04/12/20925 Addendum Cosigned By: DD/ TD/TT: 04/12/20 Subjective Date/Time of Service: Date of Service: 04/09/2020 Time of Service: 08:49 Chief Complaint: Patient is here for one month follow up before treatment today.Patient complains of fatigue. HPI: 04/09/2020: Here for one month f/u with his . He continues outpatient hemodialysis on Thursday//Saturdays. He notes fatigue, but generalized edema remarkably improved with no significant pain. I reviewed his M-spike, IgGand kappa light chains with K/L ratio that has remarkably improved (>90% reduction past month). [place] light chains decreased from 12,000 to 42. Only concern is significant hyperglycemia with dexamethasone. 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 I will coordinate evaluation by Dr. Quique Hall for HDC/autologous stem cell transplantevaluation and hold on adding Revlimid since significant response of light chains noted. I contacted Dr. Rahman of nephrology to consider reducing hemodialysis days to twice weekly. I will send myeloma labs in about 4 weeks, have him see Dr. Hall and f/u with me the following week to review plan and determine whether plan for HDC/stem cell transplant. 03/14/2020: Patient presents with his today after initiating both outpatienthemodialysis on Thursday//Saturdays and initial cycle of daratumumab, bortezomib, dexamethasone with potential addition of Revlimid after 1 month if less than optimal response. He received his first cycle of combination chemotherapy 03/12/2020. --Patient tolerated initial daratumumab infusion reasonably well with brief infusion reaction (dizziness and mild wheezing) that was treated with diphenhydramine, steroids, albuterol, and Demerol for rigors. He completed remaining infusion in an outpatient bed on the inpatient [place] Thursday and we anticipate further weekly daratumumab infusions as an outpatient. --Patient was seen at dialysis today and noted to have hemoglobin 6.8. He will receive 1 unit of packed red blood cells prior to Velcade today for scheduled tomorrow. His was unable to be present at the hospital at time of diagnosis and his initial bone marrow biopsy was performed on 03/08/2020. She requests evaluation with him today for extensive questions regarding his care. She reported her session and requested a copy of this progress note following our visit today. 1. She asked if all the tests at the hospital returned. We discussed the teststhat are used to follow-up myeloma including his elevated IgG, elevated free kappa light chains, and elevated M spike. We discussed in detail the pathophysiology of myeloma but she felt very anxious and overwhelmed and I reassured her that we will readdress this at further follow-up visits. 2. Patient had a metastatic bone survey showing no areas of lytic disease or pathologic fractures. We discussed CRAB criteria for multiple myeloma diagnosisand that he meets criteria of R renal and A anemia, but not elevated calcium or bone disease (C and B). She specifically asked is stage of multiple myeloma andwe noted that he still will require beta-2 glycoprotein (ISS) but is most consistent with stage III. We are still awaiting his chromosomal abnormalities by fluorescence in situ hybridization and will readdress at next follow-up visitwith his final bone marrow biopsy results (this study was only performed 03/08/2020). 3. She has been testing to see if there is cancer elsewhere. We discussed thatsince metastatic bone survey showed more lytic areas I do not feel that F-18 PETis high priority but this may be ordered at some point to assess for any asymptomatic bony metastatic disease. 4. He has recently had elevated blood sugars and does not have a history of diabetes, but we discussed that with weekly steroids he should likely have additional insulin on his steroid days. I offered that this could be managed byhis primary physician Dr. Heath and he could be referred for diabetes management clinic. 5. We reiterated multiple times that his schedule may be variable. He will typically have a long infusion on Mondays with daratumumab but initially he willpresent twice weekly for Velcade injection on Mondays and . This will change during the course of his therapy and he should refer to his calendar. 6. We discussed not taking additional vitamins unless approved by nephrology. I also discussed potentially adding Revlimid and we will address at future visits if this is needed based on his follow-up labs ordered 04/02/2020. His medications may be filled either locally or with his prescription plan, but manyof these will be ordered by nephrology. He is to continue vitamin D2 as recommended by nephrology. Blood pressure medications will be regulated by primary care and nephrology. 7. We discussed concerning side effects, most commonly hyperglycemia, insomnia,risk of thrombosis (recently was diagnosed with left superficial thrombosis of the left upper extremity and additional heparin is given with his dialysis), andneuropathy with Velcade. Patients do not tend to have significant nausea or possible appetite (effects of dexamethasone increase his appetite). I cannot recommend medical marijuana and would discuss this with his pre coder whetherthis would interfere with dialysis. We will also follow closely for cytopenias and reviewed infectious precautions. He has a son from [place] who plans to visit on Thursday and we discussed COVID-19 testing appropriate social isolation protocols. 8. We discussed whether he was eligible for transplant and this will be evaluated based on his response and overall health in likely 3 to 4 months afterinitiation of therapy. We did not discuss autologous stem cell transplant in detail. We did discuss that although this is not curative therapy, many patients are controlled with medication over longer periods of time (often 5 to 6 years) with appropriate therapy. It is an aggressive cancer due to its significant infectious risk and association with renal failure. 9. Exercise may be performed as tolerated but should be done in moderation and likely we should wait a few weeks for more significant exercise given his recentdialysis and initiation of chemotherapy. I did not specifically address his diet but he may address this with our [facility] nutrition team. He will also receivechemotherapy class with our nurses in the infusion center. PRELIMINARY HISTORY (from initial consult 03/08/2020): This is a 75-year-old male who was transferred from [place] emergency room by [facility] due to critical potassium 8.7 with elevated creatinine 11.2 and BUN 82 on 03/04/2020. We do not have any recent blood work for comparison but he hadnormal creatinine in 2012. He was urgently treated for his hyperkalemia and dialysis was arranged emergently by nephrology team. He has now stabilized on dialysis and had extensive work-up for etiology of his acute renal failure with severe anemia felt to be due to anemia of renal insufficiency. Iron studies returned normal with ferritin 160, but B12 low at 84 and folate low normal at 5.2. He is receiving appropriate B12 repletion. The patient reports that he has had a prolonged period of fatigue up to a year and has decreased appetite with subjective weight loss. He denies any significant bone pain other than pain in his right shoulder and has no prior falls or recurrent back pain. He had a shoulder film showing labral pathology of the joint but no fracture or dislocation. Myeloma labs were sent showing M spike 3.6 g/dL with serum immunofixation showing IgG kappa light chain specificity. Serum IgG markedly elevated at 5312 and free kappa light chain 12,649.9 with normal free lambda light chain 11.94 free kappa/lambda ratio 1063. Hepatitis A, B, and C serologies were all negative and COVID-19 screening was negative. LORE, c-ANCA, p-ANCA, anti-GBM, and antimyeloperoxidase were all negative. Clinically the patient has multiple myeloma and I explained that we needed to proceed with bone marrow aspiration and biopsy to provide baseline for diagnosis and to expedite chemotherapy with an aggressive regimen to reduce his light chains. I will review information with him at noon today around the time of his bone marrow biopsy for combinationdaratumumab 16 mg/kg IV weekly, bortezomib 1.3 mg/kg subcu twice weekly, dexamethasone 40 mg weekly, and Revlimid 25 mg p.o. daily days 1 through 14 of each 21-day cycle. Revlimid will be ordered through a special pharmacy. We will schedule his infusions as an outpatient early next week on his nondialysis days. Written literature for these medications will be provided and he may signinformed consent so that we may order this regimen as an outpatient. The patient's is not with him today but has been treated by me for breast cancer in the past and had multiple questions. We would like to arrange a time for her to be available to ask questions and be present for chemo consent, possibly around noon today. This will need to be coordinated with nursing staffdue to [facility]. - Summary of Therapies Summary of Therapies: Cycle 1 day 1 03/12/2020: Daratumumab 16 mg/kg IV weekly, bortezomib 1.3 mg/kg subcu twice weekly, dexamethasone 40 mg weekly. 04/09/2020: Decided against adding Revlimid 25 mg p.o. daily days 1 through 14 of each 21-day cycle with cycle 2 due to excellent response of kappa light chains. Await malignant hematology eval for possible transplant. ROS Details: All systems reviewed & no additional complaints except as documented Subjective/ROS - Narrative: CONSTITUTIONAL: Positive for fatigue at least 1 year, negative for fever or night sweats. No recent infections. HEAD AND NECK: Positive for significant worsening of blurring of vision over thelast year which he attributed to his diabetes mellitus--no worsening past month. Negative for changes in hearing. Negative for mouth ulcers, nasal congestion and nasal drainage. PULMONARY: Negative for chest pain, cough and dyspnea. CARDIOVASCULAR: Negative for claudication and irregular heartbeat/palpitations. Significant improvement of edema since diagnosis. GASTROINTESTINAL: Negative for abdominal pain, constipation, diarrhea, nausea orvomiting. Positive for decreased appetite and 10 kg weight loss past month since starting dialysis and chemotherapy for light chain nephropathy. GENITOURINARY: Negative for dysuria and hematuria. Patient now with improved urinary output, diagnosed in February 2020 with renal failure requiring dialysis. Prior nephrolithiasis previously followed by Dr. Seals. ENDOCRINE: Negative for cold intolerance and heat intolerance. Positive for significant hyperglycemia with home blood sugars in the 200s to 300s range, seeing Dr. Heath later today. CENTRAL NERVOUS SYSTEM: Negative for gait disturbance and headache. No focal neurologic deficits or history of stroke. PSYCHIATRIC: Negative for anxiety or depression. DERMATOLOGICAL: Negative for pruritus and rash. Negative for suspicious skin lesions. MUSCULOSKELETAL: Negative for back pain and bone/joint symptoms other than left shoulder pain as per HPI with unremarkable imaging. HEMATOLOGICAL: Negative for bleeding and easy bruising. Negative for history of transfusion (other than 1 unit packed red blood cells recent admission). Positive for left basilic vein thrombus on Doppler ultrasound 03/12/2020. ALLERGY: Negative for environmental allergies and food allergies. [facility] - History Attestation statement: The following information was validated with the patient. Source: Old Records Reviewed - Medical History Medical History: Medical History (Last Reviewed 04/09/20 @ 13:13 by Brook Huddleston MD) Apnea Arthritis Diabetes mellitus, type 2 Hyperlipidemia Hypertension Kidney stones Skin cancer - Family History Family History: Family History (Last Reviewed 04/09/20 @ 13:14 by Brook Huddleston MD) Sister Myocardial infarct Mother Myocardial infarct Father Skin cancer - Social History Smoking Status: Former smoker Tobacco Type: cigarettes Substance Use Type: None Home Medications & Allergies Allergies No Known Allergies Allergy (Verified 03/04/20 08:33) Home Medications darbepoetin raymond in polysorbat [Aranesp (in polysorbate)] 40 mcg IV-PUSH Q7D@1000 #0 ml 03/10/20 [Rx Confirmed 04/09/20] docusate sodium [DOK] 100 mg PO BID #30 cap 03/10/20 [Rx Confirmed 04/09/20] famotidine 20 mg PO DAILY #30 tab 03/10/20 [Rx Confirmed 04/09/20] ferrous sulfate 324 mg PO BID #60 tab 03/10/20 [Rx Confirmed 04/09/20] furosemide 40 mg PO BID@0800,1600 #60 tab 03/10/20 [Rx Confirmed 04/09/20] hydralazine 50 mg PO BID #60 tab 03/10/20 [Rx Confirmed 04/09/20] rosuvastatin [Crestor] 5 mg PO DAILY #30 tab 03/10/20 [Rx Confirmed 04/09/20] sennosides [Senna Lax] 2 tab PO QHS #30 tab 03/10/20 [Rx Confirmed 04/09/20] zolpidem [Ambien] 5 mg PO QHS 20 Days #20 tab 03/11/20 [Rx Confirmed 04/09/20] ergocalciferol (vitamin D2) 50,000 unit PO Mo@0900 #4 cap 04/03/20 [Rx Confirmed 04/09/20] calcium acetate(phosphat bind) 667 mg PO TID 04/09/20 [History Confirmed 04/09/20] Objective - Height/Weight Height/Weight: Height 5 ft 11 in Weight 92.1 kg BSA for Today's Weight 2.16 - Vital Signs Vital Signs: 04/09/20 08:41 Temperature 97.5 F L Pulse Rate [Monitor] 80 Respiratory Rate 18 Blood Pressure [Right Arm] 163/75 H 02 Sat by Pulse Oximetry 98 - Pain Left Upper Arm Pain Intensity: 4 - Emotional Needs Assessment Emotional Needs Assessment: Emotional Needs Identified? No Distress Screening Total 0 - ECOG Performance Status ECOG Score: 1 Physical Exam Narrative: CONSTITUTIONAL: The patient is in no acute distress. He does appear fatigued. HEAD / FACE: Normocephalic. EYES: Pupils are equal and reactive to light. Conjunctivae and lids are benign in appearance. Ocular movement intact. EARS: Hearing grossly intact. NOSE / MOUTH / THROAT: Nose, mouth, tongue and oropharynx are benign in appearance. No signs of inflammation. NECK / THYROID: Neck is supple. Thyroid is symmetrical, without thyromegaly, masses or palpable nodules. LYMPHATIC: No palpable cervical, supraclavicular, axillary, or inguinal adenopathy. RESPIRATORY: Normal to inspection. Lungs clear to auscultation and percussion. No wheezing, rales, rhonchi or rubs. Normal effort. CARDIOVASCULAR: Regular rate and rhythm. No murmurs, gallops, or rubs. VASCULAR: Carotid, radial, femoral and pedal pulses present bilaterally. No bruits. ABDOMEN: Bowel sounds normoactive. Soft, nontender and non-distended. No hepatosplenomegaly. No masses. GENITOURINARY: No CVA tenderness. No suprapubic fullness or tenderness. No groinadenopathy. No evidence of hernias. INTEGUMENTARY: The skin is unremarkable. No rashes. No suspicious lesions BACK / SPINE: The back is nontender. No step-off deformity. No CVA tenderness. MUSCULOSKELETAL: Normal musculature, no joint deformities or abnormalities, normal range of motion for all four extremities. EXTREMITIES: No longer has bilateral lower extremity edema; no cyanosis or clubbing. No Vitor sign. NEUROLOGICAL: Alert and oriented. Cranial nerves intact. No gross motor or sensory deficits. PSYCHIATRIC: No anxiety or evidence of depression. Results - Labs Labs: Diagram of Most Recent CBC and CMP 04/09/20 08:25 Labs - Last 7 Days 04/09/20 08:25: WBC 4.6, Corrected WBC 4.6, RBC 2.60 L, Hgb 9.1 L, Hct 26.1 L, MCV 100.2, MCH 34.8, MCHC 34.7, RDW 18.6 H, Plt Count 134 L, MPV 8.6, Neut % (Auto) 65.3, Lymph % (Auto) 18.2, [place] % (Auto) 13.2, Eos % (Auto) 3.0, Baso % (Auto) 0.3, Neut # (Auto) 3.0, Lymph # (Auto) 0.8 L, [place] # (Auto) 0.6, Eos # (Auto) 0.1, Baso # (Auto) 0.0, Nucleated RBC % (auto) 0.3 04/02/20 13:55: Ur Random Albumin 38.7, U Random Total Protein 6.6, U Axqqp-8-Zcgqngpj (%) 5.2, U Random e-4-Cfyfarvq % 16.3, U Random b-Globulin % 26.2, U Random Gamma Glob % 13.6, U Random M-Anselmo (%) Comment:, Urine Random PEP Note ,Urine Immunofixation Comment: 04/02/20 08:15: PHA Creatinine Clear 24.30, Sodium 135 L, Potassium 3.1 L, Chloride 96, Carbon Dioxide 25.9, BUN 26 H, Creatinine 3.07 H, Est GFR ( Amer) 24, Est GFR (Non-Af Amer) 20, Glucose 283 H, Calcium 8.7, Total Bilirubin 0.6, AST 25, ALT 31, Alkaline Phosphatase 194 H, Total Protein 6.8, Albumin 3.4,Globulin 3.4, Albumin/Globulin Ratio 1.0 04/02/20 08:15: WBC 4.5, Corrected WBC 4.5, RBC 2.54 L, Hgb 8.7 L, Hct 25.3 L, MCV 99.7, MCH 34.2, MCHC 34.3, RDW 18.9 H, Plt Count 255, MPV 8.4, Neut % (Auto) 65.0, Lymph % (Auto) 18.1, [place] % (Auto) 14.5, Eos % (Auto) 2.0, Baso % (Auto) 0.4, Neut # (Auto) 2.9, Lymph # (Auto) 0.8 L, [place] # (Auto) 0.7, Eos # (Auto) 0.1, Baso # (Auto) 0.0, Nucleated RBC % (auto) 0.0 04/02/20 08:15: Serum Total Protein 6.8, Albumin (Send Out) 3.2, Globulin (PEP) 3.6, Albumin/Globulin (PEP) 0.9, Chtlt-0-Kqrviwoqo 0.3, Rslow-0-Fdzrpyfxt 1.1 H,Beta Globulins 0.8, Srec-9-Qpblfbdtprbvl 5.5 H, Gamma Globulins 1.4, M-Anselmo 1.2H, PEP Note , IgG 1563, IgA 36 L, IgM 47, Serum Immunofixation , Free [place] LC, Quant 42.2 H, Free Lambda LC, Quant 12.4, Free [place]/Lambda Ratio 3.40 H 04/02/20 08:15: Lactate Dehydrogenase 188 - Impressions Date of Service: 03/12/20 US/US venous duplex UE LT: Swollen left arm, palpable, firm, warm area. Copies to: MD Helen Marquez MD~ VENOUS DUPLEX, LEFT UPPER EXTREMITY INDICATIONS: Painful, swollen left arm. PROCEDURE: Color-flow duplex scanning is used to interrogate the deep venous system of the left upper extremity. The jugular system, subclavian vein, brachial vein, and axillary veins to be free of any thrombus with good compression and color flow. There is noted to be thrombus present in the left basilicvein in the upper arm extending to the antecubital space. IMPRESSION: LEFT BASILIC VEIN THROMBUS LEFT UPPER EXTREMITY. AXILLARY AND SUBCLAVIAN VEINS FREE OF ANY THROMBUS. 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 He has marked elevation in IgG kappa on initial laboratory work-up for renal failure in February 2020. He has remained hemodynamically stable and I discussed in detail with the patient the pathophysiology of multiple myeloma and associated injury to kidneys, persistentanemia, bone disease, and potential hypercalcemia (we do not see hypercalcemia in this patient). He consented to inpatient bone marrow biopsy 03/08 which was diagnostic for multiple myeloma--70% plasma cells without amyloid deposition identified in small marrow specimen. Normal baseline skeletal survey. Patsy consented to begin first cycle Daratumumab, Velcade, and dexamethasone on03/12/2020--other than infusion reaction from first Daratumumab, improved with symptomatic therapy. I reviewed his case with Dr. Quique Hall of Malignant Hematology--we originally discussed adding Revlimid 25mg if no significant reduction of light chains, however at 1 month follow-up he has had significant improvement of his serum kappa light chains and I will continue current therapy with further evaluation by Dr. Longoria in 1 month for consideration of stem cell transplant.. As per HPI, I reviewed pathophysiology of myeloma, results of bone marrow biopsy, skeletal survey, and myeloma labs with the patient and his . His next scheduled cycle of chemotherapy will be tomorrow and we will send repeat myelomalabs (SPEP, IgG, kappa/lambda light chains) in 4 weeks with f/u visit with me the following week to review results as well as evaluation with Dr. Hall for possible stem cell transplant. I also discussed diabetes management with Dr. Heath and possibly decreasing dialysis to twice per week with Dr. Rahman. This is a high complexity visit over 45 minutes for coordination of care and review of laboratories and further plan for therapy with patient and his . (2) Acute renal failure on dialysis Initiated inpatient, then transitioned to outpatient hemodialysis 3 times weeklyT//Thursday schedule. Chemotherapy is given Thursday/. I explained to patient and his that with light chain nephropathy once we havereduction of light chains, we may be able to reverse his renal failure and potentially he may stop dialysis in the future (likely over several months). High-dose chemotherapy with autologous stem cell transplant is an option in somepatients, and Dr. Hall noted he would meet with Mr. Mills to determine if he is a candidate for high dose chemotherapy/stem cell transplant. I sent an emailto Dr. Hall who may discuss the case with [facility] hematology tumorboard given his significant response to initial myeloma directed therapy. I am sending consultation for in person consult with Dr. Hall to determine further care options. For now we will continue daratumumab, Velcade, and dexamethasone. (3) Steroid-induced diabetes mellitus Qualifiers: Encounter type: initial encounter Qualified Code(s): E09.9 - Drug or chemical induced diabetes mellitus without complications; T38.0X5A - Adverse effect of glucocorticoids and synthetic analogues, initial encounter Patsy has had an excellent response of light chains but has significant hyperglycemia 300 to now 400 fasting blood sugars. On his dexamethasone days I will add NPH insulin 30 units weekly and I will discuss management of his diabetes with Dr. Heath his primary physician for either initiating an insulin regimen or other hypoglycemics and following his diabetes closely. Patient alsohad remarked on some blurred vision and we will coordinate ophthalmology evaluation as well. Continue follow-up of blood sugars with each week of dexamethasone therapy with daratumumab and Velcade. His only peripheral neuropathy complaints are in his third through fifth fingers of the left hand which he had prior to commencing therapy. (4) B12 deficiency Patient was found to have B12 deficiency and was been placed on daily B12 prior to hospital discharge. We will continue weekly IM B12 for at least 8 weeks withhis myeloma regimen. Today hemoglobin is improved to 9.1 on Aranesp and weekly B12 and he has not required further blood transfusions since 03/15/2020. After 8weekly B12's we will send methylmalonic acid and consider monthly B12 IM maintenance therapy. (5) Anemia of renal disease This will be managed by nephrology with erythrocyte stimulating agent with ongoing B12 repletion. (6) Superficial thrombophlebitis of left upper extremity Previous left arm swelling and pain. Venous doppler ultrasound showed superficial thrombosis--I discussed with Dr. Rahman and we added heparin to dialysis. Today arm swelling and discomfort improved. Will continue to follow with further cycles of chemotherapy. (7) Encounter for chemotherapy management Started cycle 1 day 1 03/12/2020: Daratumumab 16 mg/kg IV weekly, bortezomib 1.3 mg/kg subcu twice weekly, dexamethasone 40 mg weekly. We have decided against adding Revlimid 25 mg p.o. daily days 1 through 14 of each 21-day cycle with cycle 2 due to excellent reduction of kappa light chains. - Chemo Plan Chemo Plan (Dose, Rate, Freq): Daratumumab 16 mg/kg IV weekly, bortezomib 1.3 mg/kg subcu twice weekly, dexamethasone 40 mg weekly for each 21-day cycle as directed (cycle 1 day 1 03/12/2020). Goal of Treatment: Control - Time with Patient Total Time Spent with Patient: 45 min Coordination of Care & Counseling Time: Greater than 50% of time spent with patient was for coordination of care (as documented) and [id number] counseling of patient and/or family. Dictated By: Brook Huddleston MD DD/ [id number] Signed By: <Electronically signed by MD Brook Huddleston> 04/09/20 [address] [facility] Work Phone: [phone] Progress note Author Brook Huddleston [facility] April 12, 2020 9:26am Note Date/Time April 09, 2020 8: 49am [facility] [place] [address] Hem/Onc Follow Up Note - OP Signed with Addenda Patient: Patsy Mills MR#: [id number] : 1945 Acct:[id number] Age/Sex: 75 / M Type: REG RCR Copies to: MD Quiuqe English, MD Helen Heath MD~ ADDENDUM1 Addendum: I met with patient 04/12 after discussion of current progress with . He recommended adding low dose Revlimid 5mg every other day (11 tabs over 21 days of each 28 day cycle). Patient is now down to 2x weekly dialysis. Has transplant evaluation with Dr. Hall on 04/26/2020. Today we reviewed chemotherapy counseling for oral Revlimid. Common and uncommon toxicities were reviewed to include allergic reaction, myelosuppression, fatigue, nausea, constipation, and thromboembolism. Other toxicities may include pneumonitis, neurologic, hepatic and renal toxicities. The patient signed informed consent and will follow-up as directed. --oral chemotherapy visit in 2 weeks. F/u with me as previously scheduled. Addendum Dictated By: MD Brook Huddleston Addendum Signed By: 04/12/20925 Addendum Cosigned By: DD/ TD/TT: 04/12/20 Subjective Date/Time of Service: Date of Service: 04/09/2020 Time of Service: 08:49 Chief Complaint: Patient is here for one month follow up before treatment today.Patient complains of fatigue. HPI: 04/09/2020: Here for one month f/u with his . He continues outpatient hemodialysis on Thursday//Saturdays. He notes fatigue, but generalized edema remarkably improved with no significant pain. I reviewed his M-spike, IgGand kappa light chains with K/L ratio that has remarkably improved (>90% reduction past month). [place] light chains decreased from 12,000 to 42. Only concern is significant hyperglycemia with dexamethasone. 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 I will coordinate evaluation by Dr. Quique Hall for HDC/autologous stem cell transplantevaluation and hold on adding Revlimid since significant response of light chains noted. I contacted Dr. Rahman of nephrology to consider reducing hemodialysis days to twice weekly. I will send myeloma labs in about 4 weeks, have him see Dr. Hall and f/u with me the following week to review plan and determine whether plan for HDC/stem cell transplant. 03/14/2020: Patient presents with his today after initiating both outpatienthemodialysis on Thursday//Saturdays and initial cycle of daratumumab, bortezomib, dexamethasone with potential addition of Revlimid after 1 month if less than optimal response. He received his first cycle of combination chemotherapy 03/12/2020. --Patient tolerated initial daratumumab infusion reasonably well with brief infusion reaction (dizziness and mild wheezing) that was treated with diphenhydramine, steroids, albuterol, and Demerol for rigors. He completed remaining infusion in an outpatient bed on the inpatient [place] Thursday and we anticipate further weekly daratumumab infusions as an outpatient. --Patient was seen at dialysis today and noted to have hemoglobin 6.8. He will receive 1 unit of packed red blood cells prior to Velcade today for scheduled tomorrow. His was unable to be present at the hospital at time of diagnosis and his initial bone marrow biopsy was performed on 03/08/2020. She requests evaluation with him today for extensive questions regarding his care. She reported her session and requested a copy of this progress note following our visit today. 1. She asked if all the tests at the hospital returned. We discussed the teststhat are used to follow-up myeloma including his elevated IgG, elevated free kappa light chains, and elevated M spike. We discussed in detail the pathophysiology of myeloma but she felt very anxious and overwhelmed and I reassured her that we will readdress this at further follow-up visits. 2. Patient had a metastatic bone survey showing no areas of lytic disease or pathologic fractures. We discussed CRAB criteria for multiple myeloma diagnosisand that he meets criteria of R renal and A anemia, but not elevated calcium or bone disease (C and B). She specifically asked is stage of multiple myeloma andwe noted that he still will require beta-2 glycoprotein (ISS) but is most consistent with stage III. We are still awaiting his chromosomal abnormalities by fluorescence in situ hybridization and will readdress at next follow-up visitwith his final bone marrow biopsy results (this study was only performed 03/08/2020). 3. She has been testing to see if there is cancer elsewhere. We discussed thatsince metastatic bone survey showed more lytic areas I do not feel that F-18 PETis high priority but this may be ordered at some point to assess for any asymptomatic bony metastatic disease. 4. He has recently had elevated blood sugars and does not have a history of diabetes, but we discussed that with weekly steroids he should likely have additional insulin on his steroid days. I offered that this could be managed byhis primary physician Dr. Heath and he could be referred for diabetes management clinic. 5. We reiterated multiple times that his schedule may be variable. He will typically have a long infusion on Mondays with daratumumab but initially he willpresent twice weekly for Velcade injection on Mondays and . This will change during the course of his therapy and he should refer to his calendar. 6. We discussed not taking additional vitamins unless approved by nephrology. I also discussed potentially adding Revlimid and we will address at future visits if this is needed based on his follow-up labs ordered 04/02/2020. His medications may be filled either locally or with his prescription plan, but manyof these will be ordered by nephrology. He is to continue vitamin D2 as recommended by nephrology. Blood pressure medications will be regulated by primary care and nephrology. 7. We discussed concerning side effects, most commonly hyperglycemia, insomnia,risk of thrombosis (recently was diagnosed with left superficial thrombosis of the left upper extremity and additional heparin is given with his dialysis), andneuropathy with Velcade. Patients do not tend to have significant nausea or possible appetite (effects of dexamethasone increase his appetite). I cannot recommend medical marijuana and would discuss this with his pre coder whetherthis would interfere with dialysis. We will also follow closely for cytopenias and reviewed infectious precautions. He has a son from [place] who plans to visit on Thursday and we discussed COVID-19 testing appropriate social isolation protocols. 8. We discussed whether he was eligible for transplant and this will be evaluated based on his response and overall health in likely 3 to 4 months afterinitiation of therapy. We did not discuss autologous stem cell transplant in detail. We did discuss that although this is not curative therapy, many patients are controlled with medication over longer periods of time (often 5 to 6 years) with appropriate therapy. It is an aggressive cancer due to its significant infectious risk and association with renal failure. 9. Exercise may be performed as tolerated but should be done in moderation and likely we should wait a few weeks for more significant exercise given his recentdialysis and initiation of chemotherapy. I did not specifically address his diet but he may address this with our [facility] nutrition team. He will also receivechemotherapy class with our nurses in the infusion center. PRELIMINARY HISTORY (from initial consult 03/08/2020): This is a 75-year-old male who was transferred from [place] emergency room by [facility] due to critical potassium 8.7 with elevated creatinine 11.2 and BUN 82 on 03/04/2020. We do not have any recent blood work for comparison but he hadnormal creatinine in 2012. He was urgently treated for his hyperkalemia and dialysis was arranged emergently by nephrology team. He has now stabilized on dialysis and had extensive work-up for etiology of his acute renal failure with severe anemia felt to be due to anemia of renal insufficiency. Iron studies returned normal with ferritin 160, but B12 low at 84 and folate low normal at 5.2. He is receiving appropriate B12 repletion. The patient reports that he has had a prolonged period of fatigue up to a year and has decreased appetite with subjective weight loss. He denies any significant bone pain other than pain in his right shoulder and has no prior falls or recurrent back pain. He had a shoulder film showing labral pathology of the joint but no fracture or dislocation. Myeloma labs were sent showing M spike 3.6 g/dL with serum immunofixation showing IgG kappa light chain specificity. Serum IgG markedly elevated at 5312 and free kappa light chain 12,649.9 with normal free lambda light chain 11.94 free kappa/lambda ratio 1063. Hepatitis A, B, and C serologies were all negative and COVID-19 screening was negative. LORE, c-ANCA, p-ANCA, anti-GBM, and antimyeloperoxidase were all negative. Clinically the patient has multiple myeloma and I explained that we needed to proceed with bone marrow aspiration and biopsy to provide baseline for diagnosis and to expedite chemotherapy with an aggressive regimen to reduce his light chains. I will review information with him at noon today around the time of his bone marrow biopsy for combinationdaratumumab 16 mg/kg IV weekly, bortezomib 1.3 mg/kg subcu twice weekly, dexamethasone 40 mg weekly, and Revlimid 25 mg p.o. daily days 1 through 14 of each 21-day cycle. Revlimid will be ordered through a special pharmacy. We will schedule his infusions as an outpatient early next week on his nondialysis days. Written literature for these medications will be provided and he may signinformed consent so that we may order this regimen as an outpatient. The patient's is not with him today but has been treated by me for breast cancer in the past and had multiple questions. We would like to arrange a time for her to be available to ask questions and be present for chemo consent, possibly around noon today. This will need to be coordinated with nursing staffdue to [facility]-19 visitor restriction policy. - Summary of Therapies Summary of Therapies: Cycle 1 day 1 03/12/2020: Daratumumab 16 mg/kg IV weekly, bortezomib 1.3 mg/kg subcu twice weekly, dexamethasone 40 mg weekly. 04/09/2020: Decided against adding Revlimid 25 mg p.o. daily days 1 through 14 of each 21-day cycle with cycle 2 due to excellent response of kappa light chains. Await malignant hematology eval for possible transplant. ROS Details: All systems reviewed & no additional complaints except as documented Subjective/ROS - Narrative: CONSTITUTIONAL: Positive for fatigue at least 1 year, negative for fever or night sweats. No recent infections. HEAD AND NECK: Positive for significant worsening of blurring of vision over thelast year which he attributed to his diabetes mellitus--no worsening past month. Negative for changes in hearing. Negative for mouth ulcers, nasal congestion and nasal drainage. PULMONARY: Negative for chest pain, cough and dyspnea. CARDIOVASCULAR: Negative for claudication and irregular heartbeat/palpitations. Significant improvement of edema since diagnosis. GASTROINTESTINAL: Negative for abdominal pain, constipation, diarrhea, nausea orvomiting. Positive for decreased appetite and 10 kg weight loss past month since starting dialysis and chemotherapy for light chain nephropathy. GENITOURINARY: Negative for dysuria and hematuria. Patient now with improved urinary output, diagnosed in February 2020 with renal failure requiring dialysis. Prior nephrolithiasis previously followed by Dr. Seals. ENDOCRINE: Negative for cold intolerance and heat intolerance. Positive for significant hyperglycemia with home blood sugars in the 200s to 300s range, seeing Dr. Heath later today. CENTRAL NERVOUS SYSTEM: Negative for gait disturbance and headache. No focal neurologic deficits or history of stroke. PSYCHIATRIC: Negative for anxiety or depression. DERMATOLOGICAL: Negative for pruritus and rash. Negative for suspicious skin lesions. MUSCULOSKELETAL: Negative for back pain and bone/joint symptoms other than left shoulder pain as per HPI with unremarkable imaging. HEMATOLOGICAL: Negative for bleeding and easy bruising. Negative for history of transfusion (other than 1 unit packed red blood cells recent admission). Positive for left basilic vein thrombus on Doppler ultrasound 03/12/2020. ALLERGY: Negative for environmental allergies and food allergies. [facility] - History Attestation statement: The following information was validated with the patient. Source: Old Records Reviewed - Medical History Medical History: Medical History (Last Reviewed 04/09/20 @ 13:13 by Brook Huddleston MD) Apnea Arthritis Diabetes mellitus, type 2 Hyperlipidemia Hypertension Kidney stones Skin cancer - Family History Family History: Family History (Last Reviewed 04/09/20 @ 13:14 by Brook Huddleston MD) Sister Myocardial infarct Mother Myocardial infarct Father Skin cancer - Social History Smoking Status: Former smoker Tobacco Type: cigarettes Substance Use Type: None Home Medications & Allergies Allergies No Known Allergies Allergy (Verified 03/04/20 08:33) Home Medications darbepoetin raymond in polysorbat [Aranesp (in polysorbate)] 40 mcg IV-PUSH Q7D@1000 #0 ml 03/10/20 [Rx Confirmed 04/09/20] docusate sodium [DOK] 100 mg PO BID #30 cap 03/10/20 [Rx Confirmed 04/09/20] famotidine 20 mg PO DAILY #30 tab 03/10/20 [Rx Confirmed 04/09/20] ferrous sulfate 324 mg PO BID #60 tab 03/10/20 [Rx Confirmed 04/09/20] furosemide 40 mg PO BID@0800,1600 #60 tab 03/10/20 [Rx Confirmed 04/09/20] hydralazine 50 mg PO BID #60 tab 03/10/20 [Rx Confirmed 04/09/20] rosuvastatin [Crestor] 5 mg PO DAILY #30 tab 03/10/20 [Rx Confirmed 04/09/20] sennosides [Senna Lax] 2 tab PO QHS #30 tab 03/10/20 [Rx Confirmed 04/09/20] zolpidem [Ambien] 5 mg PO QHS 20 Days #20 tab 03/11/20 [Rx Confirmed 04/09/20] ergocalciferol (vitamin D2) 50,000 unit PO Mo@0900 #4 cap 04/03/20 [Rx Confirmed 04/09/20] calcium acetate(phosphat bind) 667 mg PO TID 04/09/20 [History Confirmed 04/09/20] Objective - Height/Weight Height/Weight: Height 5 ft 11 in Weight 92.1 kg BSA for Today's Weight 2.16 - Vital Signs Vital Signs: 04/09/20 08:41 Temperature 97.5 F L Pulse Rate [Monitor] 80 Respiratory Rate 18 Blood Pressure [Right Arm] 163/75 H 02 Sat by Pulse Oximetry 98 - Pain Left Upper Arm Pain Intensity: 4 - Emotional Needs Assessment Emotional Needs Assessment: Emotional Needs Identified? No Distress Screening Total 0 - ECOG Performance Status ECOG Score: 1 Physical Exam Narrative: CONSTITUTIONAL: The patient is in no acute distress. He does appear fatigued. HEAD / FACE: Normocephalic. EYES: Pupils are equal and reactive to light. Conjunctivae and lids are benign in appearance. Ocular movement intact. EARS: Hearing grossly intact. NOSE / MOUTH / THROAT: Nose, mouth, tongue and oropharynx are benign in appearance. No signs of inflammation. NECK / THYROID: Neck is supple. Thyroid is symmetrical, without thyromegaly, masses or palpable nodules. LYMPHATIC: No palpable cervical, supraclavicular, axillary, or inguinal adenopathy. RESPIRATORY: Normal to inspection. Lungs clear to auscultation and percussion. No wheezing, rales, rhonchi or rubs. Normal effort. CARDIOVASCULAR: Regular rate and rhythm. No murmurs, gallops, or rubs. VASCULAR: Carotid, radial, femoral and pedal pulses present bilaterally. No bruits. ABDOMEN: Bowel sounds normoactive. Soft, nontender and non-distended. No hepatosplenomegaly. No masses. GENITOURINARY: No CVA tenderness. No suprapubic fullness or tenderness. No groinadenopathy. No evidence of hernias. INTEGUMENTARY: The skin is unremarkable. No rashes. No suspicious lesions BACK / SPINE: The back is nontender. No step-off deformity. No CVA tenderness. MUSCULOSKELETAL: Normal musculature, no joint deformities or abnormalities, normal range of motion for all four extremities. EXTREMITIES: No longer has bilateral lower extremity edema; no cyanosis or clubbing. No Vitor sign. NEUROLOGICAL: Alert and oriented. Cranial nerves intact. No gross motor or sensory deficits. PSYCHIATRIC: No anxiety or evidence of depression. Results - Labs Labs: Diagram of Most Recent CBC and CMP 04/09/20 08:25 Labs - Last 7 Days 04/09/20 08:25: WBC 4.6, Corrected WBC 4.6, RBC 2.60 L, Hgb 9.1 L, Hct 26.1 L, MCV 100.2, MCH 34.8, MCHC 34.7, RDW 18.6 H, Plt Count 134 L, MPV 8.6, Neut % (Auto) 65.3, Lymph % (Auto) 18.2, [place] % (Auto) 13.2, Eos % (Auto) 3.0, Baso % (Auto) 0.3, Neut # (Auto) 3.0, Lymph # (Auto) 0.8 L, [place] # (Auto) 0.6, Eos # (Auto) 0.1, Baso # (Auto) 0.0, Nucleated RBC % (auto) 0.3 04/02/20 13:55: Ur Random Albumin 38.7, U Random Total Protein 6.6, U Edcgf-1-Jguldvxe (%) 5.2, U Random g-0-Jfcppxop % 16.3, U Random b-Globulin % 26.2, U Random Gamma Glob % 13.6, U Random M-Anselmo (%) Comment:, Urine Random PEP Note ,Urine Immunofixation Comment: 04/02/20 08:15: PHA Creatinine Clear 24.30, Sodium 135 L, Potassium 3.1 L, Chloride 96, Carbon Dioxide 25.9, BUN 26 H, Creatinine 3.07 H, Est GFR ( Amer) 24, Est GFR (Non-Af Amer) 20, Glucose 283 H, Calcium 8.7, Total Bilirubin 0.6, AST 25, ALT 31, Alkaline Phosphatase 194 H, Total Protein 6.8, Albumin 3.4,Globulin 3.4, Albumin/Globulin Ratio 1.0 04/02/20 08:15: WBC 4.5, Corrected WBC 4.5, RBC 2.54 L, Hgb 8.7 L, Hct 25.3 L, MCV 99.7, MCH 34.2, MCHC 34.3, RDW 18.9 H, Plt Count 255, MPV 8.4, Neut % (Auto) 65.0, Lymph % (Auto) 18.1, [place] % (Auto) 14.5, Eos % (Auto) 2.0, Baso % (Auto) 0.4, Neut # (Auto) 2.9, Lymph # (Auto) 0.8 L, [place] # (Auto) 0.7, Eos # (Auto) 0.1, Baso # (Auto) 0.0, Nucleated RBC % (auto) 0.0 04/02/20 08:15: Serum Total Protein 6.8, Albumin (Send Out) 3.2, Globulin (PEP) 3.6, Albumin/Globulin (PEP) 0.9, Hcvaa-6-Ztrzfxenh 0.3, Anlxz-9-Sosaoxehm 1.1 H,Beta Globulins 0.8, Brjh-8-Jiibptjyxhxqw 5.5 H, Gamma Globulins 1.4, M-Anselmo 1.2H, PEP Note , IgG 1563, IgA 36 L, IgM 47, Serum Immunofixation , Free [place] LC, Quant 42.2 H, Free Lambda LC, Quant 12.4, Free [place]/Lambda Ratio 3.40 H 04/02/20 08:15: Lactate Dehydrogenase 188 - Impressions Date of Service: 03/12/20 US/US venous duplex UE LT: Swollen left arm, palpable, firm, warm area. Copies to: MD Helen Marquez MD~ VENOUS DUPLEX, LEFT UPPER EXTREMITY INDICATIONS: Painful, swollen left arm. PROCEDURE: Color-flow duplex scanning is used to interrogate the deep venous system of the left upper extremity. The jugular system, subclavian vein, brachial vein, and axillary veins to be free of any thrombus with good compression and color flow. There is noted to be thrombus present in the left basilicvein in the upper arm extending to the antecubital space. IMPRESSION: LEFT BASILIC VEIN THROMBUS LEFT UPPER EXTREMITY. AXILLARY AND SUBCLAVIAN VEINS FREE OF ANY THROMBUS. 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 He has marked elevation in IgG kappa on initial laboratory work-up for renal failure in February 2020. He has remained hemodynamically stable and I discussed in detail with the patient the pathophysiology of multiple myeloma and associated injury to kidneys, persistentanemia, bone disease, and potential hypercalcemia (we do not see hypercalcemia in this patient). He consented to inpatient bone marrow biopsy 03/08 which was diagnostic for multiple myeloma--70% plasma cells without amyloid deposition identified in small marrow specimen. Normal baseline skeletal survey. Patsy consented to begin first cycle Daratumumab, Velcade, and dexamethasone on03/12/2020--other than infusion reaction from first Daratumumab, improved with symptomatic therapy. I reviewed his case with Dr. Quique Hall of [facility]--we originally discussed adding Revlimid 25mg if no significant reduction of light chains, however at 1 month follow-up he has had significant improvement of his serum kappa light chains and I will continue current therapy with further evaluation by Dr. Longoria in 1 month for consideration of stem cell transplant.. As per HPI, I reviewed pathophysiology of myeloma, results of bone marrow biopsy, skeletal survey, and myeloma labs with the patient and his . His next scheduled cycle of chemotherapy will be tomorrow and we will send repeat myelomalabs (SPEP, IgG, kappa/lambda light chains) in 4 weeks with f/u visit with me the following week to review results as well as evaluation with Dr. Hall for possible stem cell transplant. I also discussed diabetes management with Dr. Heath and possibly decreasing dialysis to twice per week with Dr. Rahman. This is a high complexity visit over 45 minutes for coordination of care and review of laboratories and further plan for therapy with patient and his . (2) Acute renal failure on dialysis Initiated inpatient, then transitioned to outpatient hemodialysis 3 times weeklyT//Thursday schedule. Chemotherapy is given Thursday/. I explained to patient and his that with light chain nephropathy once we havereduction of light chains, we may be able to reverse his renal failure and potentially he may stop dialysis in the future (likely over several months). High-dose chemotherapy with autologous stem cell transplant is an option in somepatients, and Dr. Hall noted he would meet with Chay Gene to determine if he is a candidate for high dose chemotherapy/stem cell transplant. I sent an emailto Dr. Hall who may discuss the case with [facility] hematology tumorboard given his significant response to initial myeloma directed therapy. I am sending consultation for in person consult with Dr. Hall to determine further care options. For now we will continue daratumumab, Velcade, and dexamethasone. (3) Steroid-induced diabetes mellitus Qualifiers: Encounter type: initial encounter Qualified Code(s): E09.9 - Drug or chemical induced diabetes mellitus without complications; T38.0X5A - Adverse effect of glucocorticoids and synthetic analogues, initial encounter Patsy has had an excellent response of light chains but has significant hyperglycemia 300 to now 400 fasting blood sugars. On his dexamethasone days I will add NPH insulin 30 units weekly and I will discuss management of his diabetes with Dr. Heath his primary physician for either initiating an insulin regimen or other hypoglycemics and following his diabetes closely. Patient alsohad remarked on some blurred vision and we will coordinate ophthalmology evaluation as well. Continue follow-up of blood sugars with each week of dexamethasone therapy with daratumumab and Velcade. His only peripheral neuropathy complaints are in his third through fifth fingers of the left hand which he had prior to commencing therapy. (4) B12 deficiency Patient was found to have B12 deficiency and was been placed on daily B12 prior to hospital discharge. We will continue weekly IM B12 for at least 8 weeks withhis myeloma regimen. Today hemoglobin is improved to 9.1 on Aranesp and weekly B12 and he has not required further blood transfusions since 03/15/2020. After 8weekly B12's we will send methylmalonic acid and consider monthly B12 IM maintenance therapy. (5) Anemia of renal disease This will be managed by nephrology with erythrocyte stimulating agent with ongoing B12 repletion. (6) Superficial thrombophlebitis of left upper extremity Previous left arm swelling and pain. Venous doppler ultrasound showed superficial thrombosis--I discussed with Dr. Rahman and we added heparin to dialysis. Today arm swelling and discomfort improved. Will continue to follow with further cycles of chemotherapy. (7) Encounter for chemotherapy management Started cycle 1 day 1 03/12/2020: Daratumumab 16 mg/kg IV weekly, bortezomib 1.3 mg/kg subcu twice weekly, dexamethasone 40 mg weekly. We have decided against adding Revlimid 25 mg p.o. daily days 1 through 14 of each 21-day cycle with cycle 2 due to excellent reduction of kappa light chains. - Chemo Plan Chemo Plan (Dose, Rate, Freq): Daratumumab 16 mg/kg IV weekly, bortezomib 1.3 mg/kg subcu twice weekly, dexamethasone 40 mg weekly for each 21-day cycle as directed (cycle 1 day 1 03/12/2020). Goal of Treatment: Control - Time with Patient Total Time Spent with Patient: 45 min Coordination of Care & Counseling Time: Greater than 50% of time spent with patient was for coordination of care (as documented) and olii-gn-xuew counseling of patient and/or family. Dictated By: Brook Huddleston MD DD/ [id number] Signed By: <Electronically signed by MD Brook Huddleston> 04/09/20 1328 [facility] Work Phone: [phone] Progress note Author Brook Huddleston [facility] March 14, 2020 10:13pm Note Date/Time March 14, 2020 3:52 pm [facility] [place] [address] Hem/Onc Follow Up Note - OP Signed Patient: Patsy Mills MR#: [id number] : 1945 Acct:[id number] Age/Sex: 75 / M Type: REG RCR Copies to: MD Helen English MD~ Subjective Date/Time of Service: Date of Service: 03/14/2020 Time of Service: 15:52 Chief Complaint: Patient is here for follow up from inpatient start of treatment. has many questions. Patient complains of fatigue. HPI: 03/14/2020: Patient presents with his today after initiating both outpatienthemodialysis on Thursday//Saturdays and initial cycle of daratumumab, bortezomib, dexamethasone with potential addition of Revlimid after 1 month if less than optimal response. He received his first cycle of combination chemotherapy 03/12/2020. --Patient tolerated initial daratumumab infusion reasonably well with brief infusion reaction (dizziness and mild wheezing) that was treated with diphenhydramine, steroids, albuterol, and Demerol for rigors. He completed remaining infusion in an outpatient bed on the inpatient [place] Thursday and we anticipate further weekly daratumumab infusions as an outpatient. --Patient was seen at dialysis today and noted to have hemoglobin 6.8. He will receive 1 unit of packed red blood cells prior to Velcade today for scheduled tomorrow. His was unable to be present at the hospital at time of diagnosis and his initial bone marrow biopsy was performed on 03/08/2020. She requests evaluation with him today for extensive questions regarding his care. She reported her session and requested a copy of this progress note following our visit today. 1. She asked if all the tests at the hospital returned. We discussed the teststhat are used to follow-up myeloma including his elevated IgG, elevated free kappa light chains, and elevated M spike. We discussed in detail the pathophysiology of myeloma but she felt very anxious and overwhelmed and I reassured her that we will readdress this at further follow-up visits. 2. Patient had a metastatic bone survey showing no areas of lytic disease or pathologic fractures. We discussed CRAB criteria for multiple myeloma diagnosisand that he meets criteria of R renal and A anemia, but not elevated calcium or bone disease (C and B). She specifically asked is stage of multiple myeloma andwe noted that he still will require beta-2 glycoprotein (ISS) but is most consistent with stage III. We are still awaiting his chromosomal abnormalities by fluorescence in situ hybridization and will readdress at next follow-up visitwith his final bone marrow biopsy results (this study was only performed 03/08/2020). 3. She has been testing to see if there is cancer elsewhere. We discussed thatsince metastatic bone survey showed more lytic areas I do not feel that F-18 PETis high priority but this may be ordered at some point to assess for any asymptomatic bony metastatic disease. 4. He has recently had elevated blood sugars and does not have a history of diabetes, but we discussed that with weekly steroids he should likely have additional insulin on his steroid days. I offered that this could be managed byhis primary physician Dr. Heath and he could be referred for diabetes management clinic. 5. We reiterated multiple times that his schedule may be variable. He will typically have a long infusion on Mondays with daratumumab but initially he willpresent twice weekly for Velcade injection on Mondays and . This will change during the course of his therapy and he should refer to his calendar. 6. We discussed not taking additional vitamins unless approved by nephrology. I also discussed potentially adding Revlimid and we will address at future visits if this is needed based on his follow-up labs ordered 04/02/2020. His medications may be filled either locally or with his prescription plan, but manyof these will be ordered by nephrology. He is to continue vitamin D2 as recommended by nephrology. Blood pressure medications will be regulated by primary care and nephrology. 7. We discussed concerning side effects, most commonly hyperglycemia, insomnia,risk of thrombosis (recently was diagnosed with left superficial thrombosis of the left upper extremity and additional heparin is given with his dialysis), andneuropathy with Velcade. Patients do not tend to have significant nausea or possible appetite (effects of dexamethasone increase his appetite). I cannot recommend medical marijuana and would discuss this with his pre coder whetherthis would interfere with dialysis. We will also follow closely for cytopenias and reviewed infectious precautions. He has a son from [place] who plans to visit on Thursday and we discussed COVID-19 testing appropriate social isolation protocols. 8. We discussed whether he was eligible for transplant and this will be evaluated based on his response and overall health in likely 3 to 4 months afterinitiation of therapy. We did not discuss autologous stem cell transplant in detail. We did discuss that although this is not curative therapy, many patients are controlled with medication over longer periods of time (often 5 to 6 years) with appropriate therapy. It is an aggressive cancer due to its significant infectious risk and association with renal failure. 9. Exercise may be performed as tolerated but should be done in moderation and likely we should wait a few weeks for more significant exercise given his recentdialysis and initiation of chemotherapy. I did not specifically address his diet but he may address this with our [facility] nutrition team. He will also receivechemotherapy class with our nurses in the infusion center. PRELIMINARY HISTORY (from initial consult 03/08/2020): This is a 75-year-old male who was transferred from [place] emergency room by [facility] due to critical potassium 8.7 with elevated creatinine 11.2 and BUN 82 on 03/04/2020. We do not have any recent blood work for comparison but he hadnormal creatinine in 2011. He was urgently treated for his hyperkalemia and dialysis was arranged emergently by nephrology team. He has now stabilized on dialysis and had extensive work-up for etiology of his acute renal failure with severe anemia felt to be due to anemia of renal insufficiency. Iron studies returned normal with ferritin 160, but B12 low at 84 and folate low normal at 5.2. He is receiving appropriate B12 repletion. The patient reports that he has had a prolonged period of fatigue up to a year and has decreased appetite with subjective weight loss. He denies any significant bone pain other than pain in his right shoulder and has no prior falls or recurrent back pain. He had a shoulder film showing labral pathology of the joint but no fracture or dislocation. Myeloma labs were sent showing M spike 3.6 g/dL with serum immunofixation showing IgG kappa light chain specificity. Serum IgG markedly elevated at 5312 and free kappa light chain 12,649.9 with normal free lambda light chain 11.94 free kappa/lambda ratio 1063. Hepatitis A, B, and C serologies were all negative and COVID-19 screening was negative. LORE, c-ANCA, p-ANCA, anti-GBM, and antimyeloperoxidase were all negative. Clinically the patient has multiple myeloma and I explained that we needed to proceed with bone marrow aspiration and biopsy to provide baseline for diagnosis and to expedite chemotherapy with an aggressive regimen to reduce his light chains. I will review information with him at noon today around the time of his bone marrow biopsy for combinationdaratumumab 16 mg/kg IV weekly, bortezomib 1.3 mg/kg subcu twice weekly, dexamethasone 40 mg weekly, and Revlimid 25 mg p.o. daily days 1 through 14 of each 21-day cycle. Revlimid will be ordered through a special pharmacy. We willschedule his infusions as an outpatient early next week on his nondialysis days. Written literature for these medications will be provided and he may sign informed consent so that we may order this regimen as an outpatient. The patient's is not with him today but has been treated by me for breast cancer in the past and had multiple questions. We would like to arrange a time for her to be available to ask questions and be present for chemo consent, possibly around noon today. This will need to be coordinated with nursing staffdue to COVID-19 visitor restriction policy. - Summary of Therapies Summary of Therapies: Cycle 1 day 1 03/12/2020: Daratumumab 16 mg/kg IV weekly, bortezomib 1.3 mg/kg subcu twice weekly, dexamethasone 40 mg weekly. Possibly add Revlimid 25 mg p.o. daily days 1 through 14 of each 21-day cycle with cycle 2 if inadequate response of kappa light chains. Revlimid will be ordered through a special pharmacy. ROS Details: All systems reviewed & no additional complaints except as documented Subjective/ROS - Narrative: No change in review of systems from initial consult 03/08/2020 CONSTITUTIONAL: Positive for fatigue at least 1 year, negative for fever or night sweats. He does not recall recent infections. HEAD AND NECK: Positive for significant worsening of blurring of vision over thelast year which he attributed to his diabetes mellitus. He has not seen ophthalmology as an outpatient. Negative for changes in hearing. Negative for mouth ulcers, nasal congestion and nasal drainage. PULMONARY: Negative for chest pain, cough and dyspnea. CARDIOVASCULAR: Negative for claudication and irregular heartbeat/palpitations. GASTROINTESTINAL: Negative for abdominal pain, constipation, diarrhea, nausea orvomiting. Positive for decreased appetite and unspecified weight loss. GENITOURINARY: Negative for dysuria and hematuria. Patient is still urinating with low output over few days despite renal failure requiring dialysis. Prior nephrolithiasis previously followed by Dr. Seals. ENDOCRINE: Negative for cold intolerance and heat intolerance. CENTRAL NERVOUS SYSTEM: Negative for gait disturbance and headache. No focal neurologic deficits or history of stroke. PSYCHIATRIC: Negative for anxiety or depression. DERMATOLOGICAL: Negative for pruritus and rash. Negative for suspicious skin lesions. MUSCULOSKELETAL: Negative for back pain and bone/joint symptoms other than left shoulder pain as per HPI with unremarkable imaging. HEMATOLOGICAL: Negative for bleeding and easy bruising. Negative for history of transfusion (other than 1 unit packed red blood cells current admission) or thromboembolic disease ALLERGY: Negative for environmental allergies and food allergies. [facility] - History Attestation statement: The following information was validated with the patient. Source: Old Records Reviewed - Medical History Medical History: Medical History (Last Reviewed 03/14/20 @ 17:41 by Brook Huddleston MD) Apnea Arthritis Diabetes mellitus, type 2 Hyperlipidemia Hypertension Kidney stones Skin cancer - Family History Family History: Family History (Last Reviewed 03/14/20 @ 17:41 by Brook Huddleston MD) Sister Myocardial infarct Mother Myocardial infarct Father Skin cancer - Social History Smoking Status: Former smoker Tobacco Type: cigarettes Substance Use Type: Alcohol Home Medications & Allergies Allergies No Known Allergies Allergy (Verified 03/04/20 08:33) Home Medications amlodipine 5 mg PO DAILY #30 tab 03/10/20 [Rx Confirmed 03/14/20] darbepoetin raymond in polysorbat [Aranesp (in polysorbate)] 40 mcg IV-PUSH Q7D@1000 #0 ml 03/10/20 [Rx Confirmed 03/14/20] docusate sodium [DOK] 100 mg PO BID #30 cap 03/10/20 [Rx Confirmed 03/14/20] ergocalciferol (vitamin D2) 50,000 unit PO Mo@0900 #4 cap 03/10/20 [Rx Confirmed 03/14/20] famotidine 20 mg PO DAILY #30 tab 03/10/20 [Rx Confirmed 03/14/20] ferrous sulfate 324 mg PO BID #60 tab 03/10/20 [Rx Confirmed 03/14/20] furosemide 40 mg PO BID@0800,1600 #60 tab 03/10/20 [Rx Confirmed 03/14/20] hydralazine 50 mg PO BID #60 tab 03/10/20 [Rx Confirmed 03/14/20] rosuvastatin [Crestor] 5 mg PO DAILY #30 tab 03/10/20 [Rx Confirmed 03/14/20] sennosides [Senna Lax] 2 tab PO QHS #30 tab 03/10/20 [Rx Confirmed 03/14/20] zolpidem [Ambien] 5 mg PO QHS 20 Days #20 tab 03/11/20 [Rx Confirmed 03/14/20] Objective - Height/Weight Height/Weight: Height 5 ft 11 in Weight 102.058 kg BSA for Today's Weight 2.26 - Vital Signs Vital Signs: 03/14/20 15:44 Temperature 98.7 F Pulse Rate [Monitor] 87 Respiratory Rate 20 Blood Pressure [Right Arm] 126/56 L 02 Sat by Pulse Oximetry 96 - Pain Left Upper Arm Pain Intensity: 4 - Emotional Needs Assessment Emotional Needs Assessment: Emotional Needs Identified? Yes Distress Screening Total 4 Support System Spouse - ECOG Performance Status ECOG Score: 1 Physical Exam Narrative: Physical exam deferred. Please see exam from initial consult 03/08/2020: CONSTITUTIONAL: The patient is in no acute distress. HEAD / FACE: Normocephalic. EYES: Pupils are equal and reactive to light. Conjunctivae and lids are benign in appearance. Ocular movement intact. EARS: Hearing grossly intact. NOSE / MOUTH / THROAT: Nose, mouth, tongue and oropharynx are benign in appearance. No signs of inflammation. NECK / THYROID: Neck is supple. Thyroid is symmetrical, without thyromegaly, masses or palpable nodules. LYMPHATIC: No palpable cervical, supraclavicular, axillary, or inguinal adenopathy. RESPIRATORY: Normal to inspection. Lungs clear to auscultation and percussion. No wheezing, rales, rhonchi or rubs. Normal effort. CARDIOVASCULAR: Regular rate and rhythm. No murmurs, gallops, or rubs. VASCULAR: Carotid, radial, femoral and pedal pulses present bilaterally. No bruits. ABDOMEN: Bowel sounds normoactive. Soft, nontender and non-distended. No hepatosplenomegaly. No masses. GENITOURINARY: No CVA tenderness. No suprapubic fullness or tenderness. No groinadenopathy. No evidence of hernias. INTEGUMENTARY: The skin is unremarkable. No rashes. No suspicious lesions BACK / SPINE: The back is nontender. No step-off deformity. No CVA tenderness. MUSCULOSKELETAL: Normal musculature, no joint deformities or abnormalities, normal range of motion for all four extremities. EXTREMITIES: 1+ bilateral lower extremity edema; no cyanosis or clubbing. No Vitor sign. NEUROLOGICAL: Alert and oriented. Cranial nerves intact. No gross motor or sensory deficits. PSYCHIATRIC: No anxiety or evidence of depression. Results - Labs Labs: 03/14/2020 1630: White blood cells 3000, absolute neutrophil count pending; hemoglobin 6.8, hematocrit 19.7, platelet count 168,000. 03/10/2020: 03/10/2020: Serum iron 127, iron saturation 64%, ferritin 600.3 03/08/20 04:39: PHA Creatinine Clear [id number], Sodium 126 L, Potassium 4.2,Chloride 92 L, Carbon Dioxide 25.3, BUN 33 H, Creatinine 5.66 H D, Est GFR ( Amer) 12, Est GFR (Non-Af Amer) 10, Glucose 87, Calcium 8.1 L 03/08/20 04:39: WBC 6.4, Corrected WBC 6.4, RBC 2.17 L, Hgb 7.7 L, Hct 22.5 L, MCV 103.4 H, MCH 35.3 H, MCHC 34.1, RDW 19.3 H, Plt Count 206, MPV 7.4, Neut % (Auto) 68.2, Lymph % (Auto) 19.5, [place] % (Auto) 9.3, Eos % (Auto) 2.6, Baso % (Auto) 0.4, Neut # (Auto) 4.4, Lymph # (Auto) 1.2, [place] # (Auto) 0.6, Eos # (Auto) 0.2, Baso # (Auto) 0.0, Nucleated RBC % (auto) 0.1 03/07/20 21:14: POC Glucose 136, POC Glucose Comment Glu2: cleaned meter 03/07/20 16:12: POC Glucose 168, POC Glucose Comment Glu2: cleaned meter 03/07/20 07:29: POC Glucose 75, POC Glucose Comment Glu2: cleaned meter 03/06/20 08:18: Hepatitis A IgM Ab Negative, Hep Bs Antigen Negative, Hep B CoreIgM Ab Negative, Hepatitis C Antibody <0.1 03/05/20 09:50: c-ANCA Antibody <1:20, Proteinase 3 (PR3) Ab <3.5, Atypical p- ANCA <1:20, p-ANCA Antibody <1:20, Anti-Myeloperoxidase <9.0 03/05/20 09:50: IgG 5312 H, IgA 30 L, IgM 32, Serum Immunofixation IgG kappa, Glomerular Base Memb Ab 3, Free Mal[place] LC, Quant 25696.9 H, Free Lambda LC, Quant11.9, Free [place]/Lambda Ratio 1063.02 H 03/05/2020: Serum protein electrophoresis M spike 3.6 g/dL. Urine protein electrophoresis (not yet reported) 03/04/20 12:41: Crossmatch (AHG) See Detail 03/04/2020: LDH elevated 275 - Impressions Date of Service: 03/09/20 XR/XR bone survey: new diagnosis myeloma on hemodialysis Copies to: MD Verito Marquez MD~ Bone survey with plain film imaging HISTORY: Newly diagnosed multiple myeloma. Patient on dialysis. RIGHT hip and knee pain. LEFT shoulder pain. No bony lytic lesion identified. No sclerotic lesion is present. Multilevel spondylosis identified. RIGHT dialysis catheter is present. No fracture seen. No cortical destruction is present. RIGHT femoral line identified. LEFT acromioclavicular marginal spurring identified. Atherosclerosis noted. XR/XR bone survey IMPRESSION: No bony lytic lesions or bony destruction. Diffuse spondylosis. RIGHT knee and hip degenerative changes. LEFT acromioclavicular degenerative changes are present. Impression dictated by: Gary Castellano M.D.03/09/2020 9:11 AM Date of Service: 03/12/20 US/US venous duplex UE LT: Swollen left arm, palpable, firm, warm area. Copies to: MD Helen Marquez MD~ VENOUS DUPLEX, LEFT UPPER EXTREMITY INDICATIONS: Painful, swollen left arm. PROCEDURE: Color-flow duplex scanning is used to interrogate the deep venous system of the left upper extremity. The jugular system, subclavian vein, brachial vein, and axillary veins to be free of any thrombus with good compression and color flow. There is noted to be thrombus present in the left basilic vein in the upper arm extending to the antecubital space. IMPRESSION: LEFT BASILIC VEIN THROMBUS LEFT UPPER EXTREMITY. AXILLARY AND SUBCLAVIAN VEINS FREE OF ANY THROMBUS. 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 He has marked elevation in IgG kappa on recentlaboratory work-up for renal failure. He is hemodynamically stable and I discussed in detail with the patient the pathophysiology of multiple myeloma andassociated injury to kidneys, persistent anemia, bone disease, and potential hypercalcemia (we do not see hypercalcemia in this patient). He consented to inpatient bone marrow biopsy 03/08 which was diagnostic for multiple myeloma--70%plasma cells without amyloid deposition identified in small marrow specimen. Normal baseline skeletal survey. Patsy consented to begin first cycle Daratumumab, Velcade, and dexamethasone on03/12/2020--other than infusion reaction from first Daratumumab, improved with symptomatic therapy. I reviewed his case with Dr. Quique Hall of [facility] H[facility]--I will consider adding Revlimid 25mg if no significant reduction of light chains. As per HPI, I reviewed pathophysiology of myeloma, results of bone marrow biopsy, skeletal survey, and myemola labs with the patient and his . His nextscheduled cycle of chemotherapy will be 04/02/2020 and we will send repeat myeloma labs (SPEP, IgG, kappa/lambda light chains) that visit with f/u visit with me to review results 04/09. This is a high complexity visit over 1 hour. (2) Acute renal failure on dialysis Initiated inpatient, then transitioned to outpatient hemodialysis 3 times weeklyT//Thursday schedule. Chemotherapy is given Thursday/. I explained to patient and his that with light chain nephropathy once we havereduction of light chains, we may be able to reverse his renal failure and potentially he may stop dialysis in the future (likely over several months). High-dose chemotherapy with autologous stem cell transplant is an option in somepatients, and Dr. Hall noted he would meet with Mr. Mills to determine if he is a candidate for high dose chemotherapy/stem cell transplant. I will review his case and [facility] hematology tumor board once we have molecular status for high risk mutations of bone marrow biopsy in the next 2 to 3 weeks. (3) B12 deficiency Patient was found to have B12 deficiency and was been placed on daily B12 prior to hospital discharge. We will continue weekly IM B12 for at least 8 weeks withhis myeloma regimen. Today despite B12 and Aranesp, he has a hemoglobin of 6.8 and we are arranging 1 unit RBC transfusion prior to dialysis tomorrow. (4) Anemia of renal disease This will be managed by nephrology with erythrocyte stimulating agent as needed following his B12 repletion with 1 unit RBC tomorrow am. (5) Superficial thrombophlebitis of left upper extremity Thursday, he noted left arm swelling and pain. Venous doppler ultrasound showed superficial thrombosis--I discussed with Dr. Rahman that this could be treated with heparin added to dialysis. Today arm swelling and discomfort improved. Will continue to follow with further cycles of chemotherapy. (6) Encounter for chemotherapy management Started cycle 1 day 1 03/12/2020: Daratumumab 16 mg/kg IV weekly, bortezomib 1.3 mg/kg subcu twice weekly, dexamethasone 40 mg weekly. Possibly add Revlimid 25 mg p.o. daily days 1 through 14 of each 21-day cycle with cycle 2 if inadequate response of kappa light chains. Revlimid will be ordered through a special pharmacy. - Chemo Plan Chemo Plan (Dose, Rate, Freq): Daratumumab 16 mg/kg IV weekly, bortezomib 1.3 mg/kg subcu twice weekly, dexamethasone 40 mg weekly for each 21-day cycle as directed (cycle 1 day 1 03/12/2020), and (potentially at cycle 2 Revlimid 25 mg p.o. daily days 1 through 14 of each 21-day cycle). Goal of Treatment: Control - Time with Patient Total Time Spent with Patient: 60 min Coordination of Care & Counseling Time: Greater than 50% of time spent with patient was for coordination of care (as documented) and [id number] counseling of patient and/or family. Dictated By: Brook Huddleston MD DD/ [id number] Signed By: <Electronically signed by MD Brook Huddleston> 03/14/20 [address] [facility] Work Phone: [phone]) 877-729507-30-2020 Progress note Author Brook Huddleston [facility] March 14, 2020 10:13pm Note Date/Time March 14, 2020 3:52 pm [facility] [place] [address] Hem/Onc Follow Up Note - OP Signed Patient: Patsy Mills MR#: [id number] : 1945 Acct:[id number] Age/Sex: 75 / M Type: REG RCR Copies to: MD Helen English MD~ Subjective Date/Time of Service: Date of Service: 03/14/2020 Time of Service: 15:52 Chief Complaint: Patient is here for follow up from inpatient start of treatment. has many questions. Patient complains of fatigue. HPI: 03/14/2020: Patient presents with his today after initiating both outpatienthemodialysis on Thursday//Saturdays and initial cycle of daratumumab, bortezomib, dexamethasone with potential addition of Revlimid after 1 month if less than optimal response. He received his first cycle of combination chemotherapy 03/12/2020. --Patient tolerated initial daratumumab infusion reasonably well with brief infusion reaction (dizziness and mild wheezing) that was treated with diphenhydramine, steroids, albuterol, and Demerol for rigors. He completed remaining infusion in an outpatient bed on the inpatient castellano Thursday and we anticipate further weekly daratumumab infusions as an outpatient. --Patient was seen at dialysis today and noted to have hemoglobin 6.8. He will receive 1 unit of packed red blood cells prior to Velcade today for scheduled tomorrow. His was unable to be present at the hospital at time of diagnosis and his initial bone marrow biopsy was performed on 03/08/2020. She requests evaluation with him today for extensive questions regarding his care. She reported her session and requested a copy of this progress note following our visit today. 1. She asked if all the tests at the hospital returned. We discussed the teststhat are used to follow-up myeloma including his elevated IgG, elevated free kappa light chains, and elevated M spike. We discussed in detail the pathophysiology of myeloma but she felt very anxious and overwhelmed and I reassured her that we will readdress this at further follow-up visits. 2. Patient had a metastatic bone survey showing no areas of lytic disease or pathologic fractures. We discussed CRAB criteria for multiple myeloma diagnosisand that he meets criteria of R renal and A anemia, but not elevated calcium or bone disease (C and B). She specifically asked is stage of multiple myeloma andwe noted that he still will require beta-2 glycoprotein (ISS) but is most consistent with stage III. We are still awaiting his chromosomal abnormalities by fluorescence in situ hybridization and will readdress at next follow-up visitwith his final bone marrow biopsy results (this study was only performed 03/08/2020). 3. She has been testing to see if there is cancer elsewhere. We discussed thatsince metastatic bone survey showed more lytic areas I do not feel that F-18 PETis high priority but this may be ordered at some point to assess for any asymptomatic bony metastatic disease. 4. He has recently had elevated blood sugars and does not have a history of diabetes, but we discussed that with weekly steroids he should likely have additional insulin on his steroid days. I offered that this could be managed byhis primary physician Dr. Heath and he could be referred for diabetes management clinic. 5. We reiterated multiple times that his schedule may be variable. He will typically have a long infusion on Mondays with daratumumab but initially he willpresent twice weekly for Velcade injection on Mondays and . This will change during the course of his therapy and he should refer to his calendar. 6. We discussed not taking additional vitamins unless approved by nephrology. I also discussed potentially adding Revlimid and we will address at future visits if this is needed based on his follow-up labs ordered 04/02/2020. His medications may be filled either locally or with his prescription plan, but manyof these will be ordered by nephrology. He is to continue vitamin D2 as recommended by nephrology. Blood pressure medications will be regulated by primary care and nephrology. 7. We discussed concerning side effects, most commonly hyperglycemia, insomnia,risk of thrombosis (recently was diagnosed with left superficial thrombosis of the left upper extremity and additional heparin is given with his dialysis), andneuropathy with Velcade. Patients do not tend to have significant nausea or possible appetite (effects of dexamethasone increase his appetite). I cannot recommend medical marijuana and would discuss this with his pre coder whetherthis would interfere with dialysis. We will also follow closely for cytopenias and reviewed infectious precautions. He has a son from [place] who plans to visit on Thursday and we discussed COVID-19 testing appropriate social isolation protocols. 8. We discussed whether he was eligible for transplant and this will be evaluated based on his response and overall health in likely 3 to 4 months afterinitiation of therapy. We did not discuss autologous stem cell transplant in detail. We did discuss that although this is not curative therapy, many patients are controlled with medication over longer periods of time (often 5 to 6 years) with appropriate therapy. It is an aggressive cancer due to its significant infectious risk and association with renal failure. 9. Exercise may be performed as tolerated but should be done in moderation and likely we should wait a few weeks for more significant exercise given his recentdialysis and initiation of chemotherapy. I did not specifically address his diet but he may address this with our [facility] nutrition team. He will also receivechemotherapy class with our nurses in the infusion center. PRELIMINARY HISTORY (from initial consult 03/08/2020): This is a 75-year-old male who was transferred from [place] emergency room by [facility] due to critical potassium 8.7 with elevated creatinine 11.2 and BUN 82 on 03/04/2020. We do not have any recent blood work for comparison but he hadnormal creatinine in 2012. He was urgently treated for his hyperkalemia and dialysis was arranged emergently by nephrology team. He has now stabilized on dialysis and had extensive work-up for etiology of his acute renal failure with severe anemia felt to be due to anemia of renal insufficiency. Iron studies returned normal with ferritin 160, but B12 low at 84 and folate low normal at 5.2. He is receiving appropriate B12 repletion. The patient reports that he has had a prolonged period of fatigue up to a year and has decreased appetite with subjective weight loss. He denies any significant bone pain other than pain in his right shoulder and has no prior falls or recurrent back pain. He had a shoulder film showing labral pathology of the joint but no fracture or dislocation. Myeloma labs were sent showing M spike 3.6 g/dL with serum immunofixation showing IgG kappa light chain specificity. Serum IgG markedly elevated at 5312 and free kappa light chain 12,649.9 with normal free lambda light chain 11.94 free kappa/lambda ratio 1063. Hepatitis A, B, and C serologies were all negative and COVID-19 screening was negative. LORE, c-ANCA, p-ANCA, anti-GBM, and antimyeloperoxidase were all negative. Clinically the patient has multiple myeloma and I explained that we needed to proceed with bone marrow aspiration and biopsy to provide baseline for diagnosis and to expedite chemotherapy with an aggressive regimen to reduce his light chains. I will review information with him at noon today around the time of his bone marrow biopsy for combinationdaratumumab 16 mg/kg IV weekly, bortezomib 1.3 mg/kg subcu twice weekly, dexamethasone 40 mg weekly, and Revlimid 25 mg p.o. daily days 1 through 14 of each 21-day cycle. Revlimid will be ordered through a special pharmacy. We willschedule his infusions as an outpatient early next week on his nondialysis days. Written literature for these medications will be provided and he may sign informed consent so that we may order this regimen as an outpatient. The patient's is not with him today but has been treated by me for breast cancer in the past and had multiple questions. We would like to arrange a time for her to be available to ask questions and be present for chemo consent, possibly around noon today. This will need to be coordinated with nursing staffdue to COVID-19 visitor restriction policy. - Summary of Therapies Summary of Therapies: Cycle 1 day 1 03/12/2020: Daratumumab 16 mg/kg IV weekly, bortezomib 1.3 mg/kg subcu twice weekly, dexamethasone 40 mg weekly. Possibly add Revlimid 25 mg p.o. daily days 1 through 14 of each 21-day cycle with cycle 2 if inadequate response of kappa light chains. Revlimid will be ordered through a special pharmacy. ROS Details: All systems reviewed & no additional complaints except as documented Subjective/ROS - Narrative: No change in review of systems from initial consult 03/08/2020 CONSTITUTIONAL: Positive for fatigue at least 1 year, negative for fever or night sweats. He does not recall recent infections. HEAD AND NECK: Positive for significant worsening of blurring of vision over thelast year which he attributed to his diabetes mellitus. He has not seen ophthalmology as an outpatient. Negative for changes in hearing. Negative for mouth ulcers, nasal congestion and nasal drainage. PULMONARY: Negative for chest pain, cough and dyspnea. CARDIOVASCULAR: Negative for claudication and irregular heartbeat/palpitations. GASTROINTESTINAL: Negative for abdominal pain, constipation, diarrhea, nausea orvomiting. Positive for decreased appetite and unspecified weight loss. GENITOURINARY: Negative for dysuria and hematuria. Patient is still urinating with low output over few days despite renal failure requiring dialysis. Prior nephrolithiasis previously followed by Dr. Seals. ENDOCRINE: Negative for cold intolerance and heat intolerance. CENTRAL NERVOUS SYSTEM: Negative for gait disturbance and headache. No focal neurologic deficits or history of stroke. PSYCHIATRIC: Negative for anxiety or depression. DERMATOLOGICAL: Negative for pruritus and rash. Negative for suspicious skin lesions. MUSCULOSKELETAL: Negative for back pain and bone/joint symptoms other than left shoulder pain as per HPI with unremarkable imaging. HEMATOLOGICAL: Negative for bleeding and easy bruising. Negative for history of transfusion (other than 1 unit packed red blood cells current admission) or thromboembolic disease ALLERGY: Negative for environmental allergies and food allergies. PMFSH - History Attestation statement: The following information was validated with the patient. Source: Old Records Reviewed - Medical History Medical History: Medical History (Last Reviewed 03/14/20 @ 17:41 by Brook Huddleston MD) Apnea Arthritis Diabetes mellitus, type 2 Hyperlipidemia Hypertension Kidney stones Skin cancer - Family History Family History: Family History (Last Reviewed 03/14/20 @ 17:41 by Brook Huddleston MD) Sister Myocardial infarct Mother Myocardial infarct Father Skin cancer - Social History Smoking Status: Former smoker Tobacco Type: cigarettes Substance Use Type: Alcohol Home Medications & Allergies Allergies No Known Allergies Allergy (Verified 03/04/20 08:33) Home Medications amlodipine 5 mg PO DAILY #30 tab 03/10/20 [Rx Confirmed 03/14/20] darbepoetin raymond in polysorbat [Aranesp (in polysorbate)] 40 mcg IV-PUSH Q7D@1000 #0 ml 03/10/20 [Rx Confirmed 03/14/20] docusate sodium [DOK] 100 mg PO BID #30 cap 03/10/20 [Rx Confirmed 03/14/20] ergocalciferol (vitamin D2) 50,000 unit PO Mo@0900 #4 cap 03/10/20 [Rx Confirmed 03/14/20] famotidine 20 mg PO DAILY #30 tab 03/10/20 [Rx Confirmed 03/14/20] ferrous sulfate 324 mg PO BID #60 tab 03/10/20 [Rx Confirmed 03/14/20] furosemide 40 mg PO BID@0800,1600 #60 tab 03/10/20 [Rx Confirmed 03/14/20] hydralazine 50 mg PO BID #60 tab 03/10/20 [Rx Confirmed 03/14/20] rosuvastatin [Crestor] 5 mg PO DAILY #30 tab 03/10/20 [Rx Confirmed 03/14/20] sennosides [Senna Lax] 2 tab PO QHS #30 tab 03/10/20 [Rx Confirmed 03/14/20] zolpidem [Ambien] 5 mg PO QHS 20 Days #20 tab 03/11/20 [Rx Confirmed 03/14/20] Objective - Height/Weight Height/Weight: Height 5 ft 11 in Weight 102.058 kg BSA for Today's Weight 2.26 - Vital Signs Vital Signs: 03/14/20 15:44 Temperature 98.7 F Pulse Rate [Monitor] 87 Respiratory Rate 20 Blood Pressure [Right Arm] 126/56 L 02 Sat by Pulse Oximetry 96 - Pain Left Upper Arm Pain Intensity: 4 - Emotional Needs Assessment Emotional Needs Assessment: Emotional Needs Identified? Yes Distress Screening Total 4 Support System Spouse - ECOG Performance Status ECOG Score: 1 Physical Exam Narrative: Physical exam deferred. Please see exam from initial consult 03/08/2020: CONSTITUTIONAL: The patient is in no acute distress. HEAD / FACE: Normocephalic. EYES: Pupils are equal and reactive to light. Conjunctivae and lids are benign in appearance. Ocular movement intact. EARS: Hearing grossly intact. NOSE / MOUTH / THROAT: Nose, mouth, tongue and oropharynx are benign in appearance. No signs of inflammation. NECK / THYROID: Neck is supple. Thyroid is symmetrical, without thyromegaly, masses or palpable nodules. LYMPHATIC: No palpable cervical, supraclavicular, axillary, or inguinal adenopathy. RESPIRATORY: Normal to inspection. Lungs clear to auscultation and percussion. No wheezing, rales, rhonchi or rubs. Normal effort. CARDIOVASCULAR: Regular rate and rhythm. No murmurs, gallops, or rubs. VASCULAR: Carotid, radial, femoral and pedal pulses present bilaterally. No bruits. ABDOMEN: Bowel sounds normoactive. Soft, nontender and non-distended. No hepatosplenomegaly. No masses. GENITOURINARY: No CVA tenderness. No suprapubic fullness or tenderness. No groinadenopathy. No evidence of hernias. INTEGUMENTARY: The skin is unremarkable. No rashes. No suspicious lesions BACK / SPINE: The back is nontender. No step-off deformity. No CVA tenderness. MUSCULOSKELETAL: Normal musculature, no joint deformities or abnormalities, normal range of motion for all four extremities. EXTREMITIES: 1+ bilateral lower extremity edema; no cyanosis or clubbing. No Vitor sign. NEUROLOGICAL: Alert and oriented. Cranial nerves intact. No gross motor or sensory deficits. PSYCHIATRIC: No anxiety or evidence of depression. Results - Labs Labs: 03/14/2020 1630: White blood cells 3000, absolute neutrophil count pending; hemoglobin 6.8, hematocrit 19.7, platelet count 168,000. 03/10/2020: 03/10/2020: Serum iron 127, iron saturation 64%, ferritin 600.3 03/08/20 04:39: PHA Creatinine Clear [id number], Sodium 126 L, Potassium 4.2,Chloride 92 L, Carbon Dioxide 25.3, BUN 33 H, Creatinine 5.66 H D, Est GFR ( Amer) 12, Est GFR (Non-Af Amer) 10, Glucose 87, Calcium 8.1 L 03/08/20 04:39: WBC 6.4, Corrected WBC 6.4, RBC 2.17 L, Hgb 7.7 L, Hct 22.5 L, MCV 103.4 H, MCH 35.3 H, MCHC 34.1, RDW 19.3 H, Plt Count 206, MPV 7.4, Neut % (Auto) 68.2, Lymph % (Auto) 19.5, [place] % (Auto) 9.3, Eos % (Auto) 2.6, Baso % (Auto) 0.4, Neut # (Auto) 4.4, Lymph # (Auto) 1.2, [place] # (Auto) 0.6, Eos # (Auto) 0.2, Baso # (Auto) 0.0, Nucleated RBC % (auto) 0.1 03/07/20 21:14: POC Glucose 136, POC Glucose Comment Glu2: cleaned meter 03/07/20 16:12: POC Glucose 168, POC Glucose Comment Glu2: cleaned meter 03/07/20 07:29: POC Glucose 75, POC Glucose Comment Glu2: cleaned meter 03/06/20 08:18: Hepatitis A IgM Ab Negative, Hep Bs Antigen Negative, Hep B CoreIgM Ab Negative, Hepatitis C Antibody <0.1 03/05/20 09:50: c-ANCA Antibody <1:20, Proteinase 3 (PR3) Ab <3.5, Atypical p- ANCA <1:20, p-ANCA Antibody <1:20, Anti-Myeloperoxidase <9.0 03/05/20 09:50: IgG 5312 H, IgA 30 L, IgM 32, Serum Immunofixation IgG kappa, Glomerular Base Memb Ab 3, Free [place] LC, Quant 43704.9 H, Free Lambda LC, Quant11.9, Free [place]/Lambda Ratio 1063.02 H 03/05/2020: Serum protein electrophoresis M spike 3.6 g/dL. Urine protein electrophoresis (not yet reported) 03/04/20 12:41: Crossmatch (AHG) See Detail 03/04/2020: LDH elevated 275 - Impressions Date of Service: 03/09/20 XR/XR bone survey: new diagnosis myeloma on hemodialysis Copies to: MD Verito Marquez MD~ Bone survey with plain film imaging HISTORY: Newly diagnosed multiple myeloma. Patient on dialysis. RIGHT hip and knee pain. LEFT shoulder pain. No bony lytic lesion identified. No sclerotic lesion is present. Multilevel spondylosis identified. RIGHT dialysis catheter is present. No fracture seen. No cortical destruction is present. RIGHT femoral line identified. LEFT acromioclavicular marginal spurring identified. Atherosclerosis noted. XR/XR bone survey IMPRESSION: No bony lytic lesions or bony destruction. Diffuse spondylosis. RIGHT knee and hip degenerative changes. LEFT acromioclavicular degenerative changes are present. Impression dictated by: Gary Castellano M.D.03/09/2020 9:11 AM Date of Service: 03/12/20 US/US venous duplex UE LT: Swollen left arm, palpable, firm, warm area. Copies to: MD Helen Marquez MD~ VENOUS DUPLEX, LEFT UPPER EXTREMITY INDICATIONS: Painful, swollen left arm. PROCEDURE: Color-flow duplex scanning is used to interrogate the deep venous system of the left upper extremity. The jugular system, subclavian vein, brachial vein, and axillary veins to be free of any thrombus with good compression and color flow. There is noted to be thrombus present in the left basilic vein in the upper arm extending to the antecubital space. IMPRESSION: LEFT BASILIC VEIN THROMBUS LEFT UPPER EXTREMITY. AXILLARY AND SUBCLAVIAN VEINS FREE OF ANY THROMBUS. 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 He has marked elevation in IgG kappa on recentlaboratory work-up for renal failure. He is hemodynamically stable and I discussed in detail with the patient the pathophysiology of multiple myeloma andassociated injury to kidneys, persistent anemia, bone disease, and potential hypercalcemia (we do not see hypercalcemia in this patient). He consented to inpatient bone marrow biopsy 03/08 which was diagnostic for multiple myeloma--70%plasma cells without amyloid deposition identified in small marrow specimen. Normal baseline skeletal survey. Patsy consented to begin first cycle Daratumumab, Velcade, and dexamethasone on03/12/2020--other than infusion reaction from first Daratumumab, improved with symptomatic therapy. I reviewed his case with Dr. Quique Hall of Malignant Hematology--I will consider adding Revlimid 25mg if no significant reduction of light chains. As per HPI, I reviewed pathophysiology of myeloma, results of bone marrow biopsy, skeletal survey, and myemola labs with the patient and his . His nextscheduled cycle of chemotherapy will be 04/02/2020 and we will send repeat myeloma labs (SPEP, IgG, kappa/lambda light chains) that visit with f/u visit with me to review results 04/09. This is a high complexity visit over 1 hour. (2) Acute renal failure on dialysis Initiated inpatient, then transitioned to outpatient hemodialysis 3 times weeklyT//Thursday schedule. Chemotherapy is given Thursday/. I explained to patient and his that with light chain nephropathy once we havereduction of light chains, we may be able to reverse his renal failure and potentially he may stop dialysis in the future (likely over several months). High-dose chemotherapy with autologous stem cell transplant is an option in somepatients, and Dr. Hall noted he would meet with Mr. Mills to determine if he is a candidate for high dose chemotherapy/stem cell transplant. I will review his case and [facility] hematology tumor board once we have molecular status for high risk mutations of bone marrow biopsy in the next 2 to 3 weeks. (3) B12 deficiency Patient was found to have B12 deficiency and was been placed on daily B12 prior to hospital discharge. We will continue weekly IM B12 for at least 8 weeks withhis myeloma regimen. Today despite B12 and Aranesp, he has a hemoglobin of 6.8 and we are arranging 1 unit RBC transfusion prior to dialysis tomorrow. (4) Anemia of renal disease This will be managed by nephrology with erythrocyte stimulating agent as needed following his B12 repletion with 1 unit RBC tomorrow am. (5) Superficial thrombophlebitis of left upper extremity Thursday, he noted left arm swelling and pain. Venous doppler ultrasound showed superficial thrombosis--I discussed with Dr. Rahman that this could be treated with heparin added to dialysis. Today arm swelling and discomfort improved. Will continue to follow with further cycles of chemotherapy. (6) Encounter for chemotherapy management Started cycle 1 day 1 03/12/2020: Daratumumab 16 mg/kg IV weekly, bortezomib 1.3 mg/kg subcu twice weekly, dexamethasone 40 mg weekly. Possibly add Revlimid 25 mg p.o. daily days 1 through 14 of each 21-day cycle with cycle 2 if inadequate response of kappa light chains. Revlimid will be ordered through a special pharmacy. - Chemo Plan Chemo Plan (Dose, Rate, Freq): Daratumumab 16 mg/kg IV weekly, bortezomib 1.3 mg/kg subcu twice weekly, dexamethasone 40 mg weekly for each 21-day cycle as directed (cycle 1 day 1 03/12/2020), and (potentially at cycle 2 Revlimid 25 mg p.o. daily days 1 through 14 of each 21-day cycle). Goal of Treatment: Control - Time with Patient Total Time Spent with Patient: 60 min Coordination of Care & Counseling Time: Greater than 50% of time spent with patient was for coordination of care (as documented) and [id number] counseling of patient and/or family. Dictated By: Brook Huddleston MD DD/ [id number] Signed By: <Electronically signed by MD Brook Huddleston> 03/14/20 [id number] [facility] Work Phone: Evaluation + Plan note No data available for this section [facility] evaluation + Plan note Future Appointments Appointment Date:04/01/2022 08:45:00 AM Scheduled Provider:Patsy Seals Jr., MD Location:[facility] Appointment Type:URO Office Visit Appointment Date:08/05/2022 08:45:00 AM Scheduled Provider:Patsy Seals Jr., MD Location:[facility] Appointment Type:URO Office Visit [facility] evaluation + Plan note Future Appointments Appointment Date:04/22/2022 10:30:00 AM Scheduled Provider:Patsy Seals Jr., MD Location:[facility] Appointment Type:URO Office Visit Appointment Date:08/05/2022 08:45:00 AM Scheduled Provider:Patsy Seals Jr., MD Location:[facility]ointment [facility] Future Appointments Appointment Date:04/28/2022 12:15:00 PM Scheduled Provider: Location:[facility] Appointment Type:Urology CALL PAT FT Appointment Date:05/05/2022 09:30:00 AM Scheduled Provider: Location:[facility] Appointment Type:Urology FT Appointment Date:08/05/2022 08:45:00 AM Scheduled Provider:Patsy Seals Jr., MD Location:[facility] Appointment Type:URO Office Visit [facility] Evaluation + Plan note Future Appointments Appointment Date:04/28/2022 12:15:00 PM Scheduled Provider: Location:[facility] Appointment Type:Urology CALL PAT FT Appointment Date:05/05/2022 09:30:00 AM Scheduled Provider: Location:[facility] Appointment Type:Urology FT Appointment Date:08/05/2022 08:45:00 AM Scheduled Provider:Patsy Seals Jr., MD Location:[facility] Appointment Type:URO Office Visit Diagnostic Tests Pending * Urine Culture 04/18/[address] [address] [facility] Future Appointments Appointment Date:05/06/2022 01:00:00 PM Scheduled Provider: Location:[facility] Appointment Type:URO Nurse Visit Appointment Date:06/04/2022 10:00:00 AM Scheduled Provider:Vesna Cortez MD [facility] Type:[facility] Office Visit Appointment Date:08/05/2022 08:45:00 AM Scheduled Provider:Patsy Seals Jr., MD Location:[facility] Appointment Type:URO [facility] Future Appointments Appointment Date:06/04/2022 10:00:00 AM Scheduled Provider:Vesna Cortez MD Location:[facility] Appointment Type:URO Office Visit Appointment Date:08/05/2022 08:45:00 AM Scheduled Provider:Patsy Seals Jr., MD Location:[facility] Appointment Type:URO Office Visit [facility] Evaluation + Plan note Future Appointments Appointment Date:08/06/2022 10:00:00 AM Scheduled Provider:Vesna Cortez MD Location:[facility] Appointment Type:URO Office Visit Diagnostic Tests Pending * Urine Culture 06/04/[address] [address] Future Appointments Appointment Date:08/06/2022 10:00:00 AM Scheduled Provider:Vesna Cortez MD Location:[facility] Appointment Type:URO Office Visit [facility] evaluation + Plan note Future Appointments Appointment Date:07/04/2022 01:00:00 PM Scheduled Provider:Vesna Cortez MD Location:[facility] Appointment Type:URO Office Visit Appointment Date:08/06/2022 10:00:00 AM Scheduled Provider:Vesna Cortez MD Location:[facility] Appointment Type:URO Office Visit [facility] Evaluation + Plan note Future Appointments Appointment Date:07/07/2022 10:15:00 AM Scheduled Provider: Location:[facility] Appointment Type:Urology FT Appointment Date:07/07/2022 11:45:00 AM Scheduled Provider: Location:[facility] Appointment Type:Urology CALL PAT FT Appointment Date:08/06/2022 10:00:00 AM Scheduled Provider:Vesna Cortez MD Location:[facility] Appointment Type:URO Office Visit Diagnostic Tests Pending * UTI ([facility]) 07/04/22 [facility] Evaluation + Plan note Future Appointments Appointment Date:08/25/2022 11:00:00 AM Scheduled Provider: Location:[facility] Appointment Type:URO Nurse Visit [facility] evaluation + Plan note Future Appointments Appointment Date:08/25/2022 11:00:00 AM Scheduled Provider: Location:[facility] Appointment Type:URO Nurse Visit Diagnostic Tests Pending * Urine Culture 08/19/[address] [address] Future Appointments Appointment Date:09/18/2022 09:15:00 AM Scheduled Provider:Vesna Cortez MD Location:[facility] Appointment Type:URO Office Visit [facility] evaluation + Plan note Future Appointments Appointment Date:03/18/2023 10:45:00 AM Scheduled Provider:Vesna Cortez MD Location:[facility] Appointment Type:URO Office Visit [facility] Evaluation + Plan note Future Appointments Appointment Date:10/17/2022 08:45:00 AM Scheduled Provider: Location:[facility] Appointment Type:Urology CALL PAT FT Appointment Date:10/20/2022 08:00:00 AM Scheduled Provider: Location:[facility] Appointment Type:Urology FT Appointment Date:03/18/2023 10:45:00 AM Scheduled Provider:Vesna Cortez MD Location:[facility] Appointment Type:URO Office Visit [facility] Evaluation + Plan note Future Appointments Appointment Date:11/21/2022 09:45:00 AM Scheduled Provider:Vesna Cortez MD Location:[facility] Appointment Type:URO Office Visit Appointment Date:03/18/2023 10:45:00 AM Scheduled Provider:Vesna Cortez MD Location:[facility] Appointment Type:URO Office Visit Diagnostic Tests Pending * Basic Metabolic Panel 11/03/22 [facility] Evaluation + Plan note Future Appointments Appointment Date:01/16/2023 10:00:00 AM Scheduled Provider: Location:[facility] Appointment Type:URO Nurse Visit Appointment Date:03/18/2023 10:45:00 AM Scheduled Provider:Vesna Cortez MD Location:[facility] Appointment Type:URO Office Visit [facility] Evaluation + Plan note Future Appointments Appointment Date:02/13/2023 09:00:00 AM Scheduled Provider:Vesna Cortez MD Location:[facility] Appointment Type:URO Office Visit Appointment Date:03/18/2023 10:45:00 AM Scheduled Provider:Vesna Cortez MD Location:[facility] Appointment Type:URO Office Visit [facility] Evaluation + Plan note Future Appointments Appointment Date:07/22/2023 09:15:00 AM Scheduled Provider:Vesna Cortez MD Location:[facility] Appointment Type:URO Office Visit Diagnostic Tests Pending * Urine Culture 07/02/[address] [facility] [address] Future Appointments Appointment Date:08/11/2023 10:30:00 AM Scheduled Provider: Location:[facility] Appointment Type:URO Nurse Visit [facility] evaluation + Plan note Future Appointments Appointment Date:08/31/2023 11:30:00 AM Scheduled Provider: Location:[facility] Appointment Type:URO Nurse Visit [facility] Evaluation + Plan note Future Appointments Appointment Date:08/31/2023 11:30:00 AM Scheduled Provider: Location:[facility] Appointment Type:URO Nurse Visit Diagnostic Tests Pending * Urine Culture 08/11/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 Rash and nonspecific skin eruption chronic Steroid-induced diabetes mellitus chronic Superficial thrombophlebitis of left upper extremity chronic Acute renal failure on dialysis resolved [facility] Work Phone: Evaluation note* Diagnosis Prostate cancer (HCC)- Primary Malignant neoplasm of prostate Acquired ureteral stricture Neurogenic bladder Neurogenic bladder, NOS Benign prostatic hyperplasia with urinary obstruction Acquired ureteral stricture documented in this encounter [facility] note* Diagnosis Pre-op evaluation- Primary Preoperative examination, unspecified Hypertension, unspecified type Hypercholesterolemia Pure hypercholesterolemia Benign prostatic hyperplasia with urinary obstruction Stage 3 chronic kidney disease, unspecified whether stage 3a or 3b CKD (HCC) Type 2 diabetes mellitus without complication, with long-term current use of insulin (HCC) 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 Prostate cancer (HCC) Malignant neoplasm of prostate Iron deficiency anemia, unspecified iron deficiency anemia type Rheumatoid arthritis, involving unspecified site, unspecified whether rheumatoid factor present (HCC) Acquired ureteral stricture documented in this encounter [facility] note* Diagnosis Onset Date Resolution Status Anemia of renal disease shipping checker darlene B12 deficiency chronic Chemotherapy-induced peripheral neuropathy chronic Encounter for chemotherapy management chronic Encounter for coordination of complex care chronic History of anemia due to vitamin B12 deficiency chronic History of hemodialysis shipping checker darlene Iron deficiency anemia chron ic 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 Rash and nonspecific skin eruption chronic Steroid-induced diabetes mellitus chronic Superficial thrombophlebitis of left upper extremity chronic Urinary incontinence chronic Acute renal failure on dialysis resolved [facility] Work Phone: Evaluation noteNo assessment information available [facility] Work Phone: Hisgneu general Narrative - Reported* Type Description Date Medical History 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 Medical History APNEA Medical History ARTHRITIS Medical History DIABETES MELLITUS TYPE 2 Medical History HYPERLIPIDEMIA Medical History HYPERTENSION Medical History KIDNEY STONES Medical History Multiple myeloma Medical History UTI, SEPSIS, YEAST INFECTION Surgical History SKIN LESIONS Surgical History THROAT SURGERY FOR APNEA 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 Hospitalization History ACUTE RENAL FAILURE 02/14 Hospitalization History KIDNEY STONES Hospitalization History Hyperkalemia 02/2020 Hospitalization History STEM CELL TRANSPLANT, MR [facility]OPEZ 07/2020 Hospitalization History UTI 08/24/2021 Hospitalization History ELEVATED CREATININE AND POTASSIUM 09/18/2021 [facility] Other History general Narrative - Reported* Type Description Date Medical History 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 Medical History APNEA Medical History ARTHRITIS Medical History DIABETES MELLITUS TYPE 2 Medical History HYPERLIPIDEMIA Medical History HYPERTENSION Medical History KIDNEY STONES Medical History Multiple myeloma Medical History UTI, SEPSIS, YEAST INFECTION Surgical History SKIN LESIONS Surgical History THROAT SURGERY FOR APNEA 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 No data available for this section [facility] [place] progress note Author Brook Huddleston [facility] September 03, 2022 9:25am Note Date/Time September 03, 2022 8 :57am [facility] [place] [address] Hem/Onc Follow Up Note - OP Signed Patient: Patsy Mills MR#: [id number] : 1945 Acct:[id number] Age/Sex: 77 / M Type: REG RCR Copies to: MD Quique Ashton MD Kathy M Lue, MD Richard R Keller, MD~ Subjective Date/Time of Service: Date of Service: 09/03/2022 Time of Service: 08:54 Chief Complaint: Patient is here today for a one month follow up visit and go over labs HPI: 09/03/2022: Anabela presents with his for 5-week follow-up. He had a phone follow-up with Dr. Longoria from July [address] Hall reviewedhis most recent myeloma labs showing no evidence of recurrence and bone marrow biopsy from July with undetectable clonality on Clonoseq testing. He has remained off Revlimid since June 27 due to persistent fatigue and has not had any significant improvement of his anemia. We are going to continue to holdRevlimid and reassess his serum iron profile, methylmalonic acid, and homocystine. The patient remains on monthly B12 and last iron stores in December were elevated. I am also going to send an erythropoietin level for possible addition of Aranesp 200 mcg every 2 weeks to improve his hemoglobin. Otherwise he continues to have mild to moderate fatigue but has not had any dizziness or falls. He did undergo TURP with Dr. Cortez of urology at [facility] with some improvement of his urinary incontinence symptoms. He did not have any evidence of infection on urinalysis. He has follow-up with nephrology in 1 month. We will arrange CBC in 1 month and contact him with response to whichever intervention based on his labs (repleting iron, increasing B12, or adding Aranesp). He will defer follow-up with myeloma labs including serum and urine protein electrophoresis, quantitative immunoglobulins, and kappa/lambda light chain ratio to 4 months unless new symptoms arise. Moderate complexity 35-minute follow-up visit. 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 His primary complaint is urinary symptoms and increased urinary frequency - not sleeping well due to waking up frequently with urination. He is planning on undergoing TURP with Dr. Cortez this 07/31/2022. He is still fatigued, still not much energy or appetite; but overall no significant changes. He saw Dr. Hall on 07/03/2022 and his note was reviewed. He mentioned that it would bebeneficial for patient to continue Revlimid if able; he was also taken off Acyclovir and advised to follow up with Dr. Hall in 1 year with MRD testing. 06/27/2022: Patsy is here for followup to review Clonoseq testing that was still pending at last visit. He continues to have increased urine frequency andincontinence after prior Urolift surgery. He was given Mybetriq to manage urinefrequency but notes this was not well tolerated due to mouth sores, diarrhea, and headaches which improved after stopping the medication. No other concerningsymptoms although he has persistent fatigue and is frustrated with his quality of life. His Clonoseq returned at zero clonal cells. We noted since he has no evidence of disease in marrow and decreased quality of life, he will hold Revlimid x 1 month to see if symptoms improve. One month followup with [facility] to review labs and symptoms. He also has followup with Dr. Hall in one week and will inform him of plan for one month off Revlimid. He also may seek Urology second opinion. 05/23/2022: Noted to have Urolift procedure at [facility] last month, noted increased post-op pain that is slowly improving. On 05/16 he had injection of retinal hemorrhages for diabetic neuropathy. His bone marrow aspiration and biopsy for annual MRD testing was performed in interventional radiology on 04/30/2022, but specimen was not sent for Clonoseq MRD testing. No other new symptoms--12/2021: last M-spike negative and normal kappa/lambda light chain ratio. Bone marrow biopsy does not show morphologic evidence of myeloma but patient consented to bone marrow aspirate alone in clinic today to send for MRD testing. Other labs are stable--we will followup results in one month with repeat myeloma labs (serum protein electrophoresis, serum immunofixation, quantitative immunoglobulins, and kappa/lambda light chain ratio. Patient and agree with this plan over this low complexity 25 minute visit and 15 additional minutes for bone marrow aspiration. 02/05/2022: Patsy and his present for 1 month follow-up. No new symptoms--persistent stable fatigue. He underwent radiofrequency ablation of kidney stone by Dr. Seals at [place] on 01/14/2022 without complications. Sent off Revlimid since December 12, 2021 due to cytopenias. Otherwise no changes in clinical history. He is due for his second shingles shot and since he is otherwise stable with no recent infections he can receive his second dose. He did require transfusion of 2 units packed red blood cells for hemoglobin 6.7 on 01/23/2022. Hemoglobin has now improved to normal methylmalonic acid and homocystine, elevated iron saturation 72% and ferritin elevated to 663. Erythropoietin level was also elevated to 547.7 so he is not a candidate for erythrocyte stimulating agents. At this time I will continue to hold Revlimid since he has no evidence of M spike on his most recent serum protein electrophoresis or serum or urine immunofixation. [place]/lambda light chain ratio continues to decline to now 1.31 (normal). Due to his recent anemia we will hold his Revlimid another month and repeat his CBC in 1 month. If hemoglobin improving, we may consider resuming his maintenance Revlimid to 5 mg every other day. Next follow- up in April 2022 for repeat bone marrow biopsyin interventional radiology for specimen to be sent for minimal residual diseasetesting. I will follow-up with him 3 weeks thereafter for review of symptoms and bone marrow results, sooner as needed. 01/02/2022: Patsy and his are here for 3 month followup visit. She raised most of the concerns regarding worsening fatigue. He has been off He underwent a painful bone marrow by ROOFER ASSISTANT with Dr. Hall with nondiagnostic specimen. Dr. Hall recommended repeat bone marrow in the fall with MRD testing (we will set up with IR). I reviewed his f/u monoclonal gammopathy testing showing asymmetric gamma but no M-spike. Normal kappa/lambda light chain ratio. Hemoglobin declined to 8--elevated iron saturation and ferritin. I will check methylmalonic acid and homocysteine, erythropoietin, and may consider adding erythropoietin. Continue f/u with Dr. Crain. 10/03/2021: Patsy is here for 4-month follow-up of light chain myeloma. His brought me a thorough list of his recent hospitalizations since early August 2021. Recurrent weakness and dizziness as per chief complaint. --August 20 he was treated for UTI at [facility] ER, thenadmitted August 24 to [place] with dehydration and urosepsis with discharge August 29. 09/05/[address] Heath for continued antibiotics with Bactrim DS. Urine also returned positive for candidiasis and he was treated with fluconazole daily. He stopped his hydralazine and Lasix. --09/17/2021: He returned for labs and skeletal survey at [facility] and his potassium on blood work was markedly elevated. We contacted him and advised ER evaluation at [facility]. His potassium returned at 7.3 and he required hydration, calcium gluconate, insulin with bicarb, and had a negative Covid test. He was admitted and had unremarkable renal ultrasound, transfused 1 unit of blood for hemoglobin 7.3. Potassium and creatinine normalized and he was discharged home on 09/19/2021. Since that time he has had some improvement of energy but still has poor appetite and mild weakness. No fever, chills, or sweats. I will have him follow-up with nephrology and Dr. Heath for management of his potassium and creatinine. He denies any abdominal pain or bone pain and is otherwise compliant with maintenance Revlimid 5 mg daily. --Labs from 09/16/2021 did show mild elevation in creatinine 3.9 likely due to his electrolyte disturbances. His creatinine had increased from 1.29-2.11 likely due to dehydration. Serum M spike was not observed, but urine M spike was detected at 6.9. Urine immunofixation did not show monoclonal population and his urine M spike is likely due to his recent urinary infections. Serum kappa and lambda light chains were both elevated to 62.1 and 38.7 respectively with normal kappa/lambda ratio 1.6. Skeletal survey did not show any lytic lesions. At this time I would not change his maintenance Revlimid. He is due for follow-up with Dr. Hall at [facility] malignant hematology in late October for 1 year follow-up bone marrow biopsy for MRD status. His next follow-up with me will be in 3 months or sooner as needed. 05/30/2021: 3 month followup--still no new symptoms. We discussed coronavirus booster, then flu vaccine, then will have post transplant vaccines in June. He is off gabapentin and rash resolved. Tolerates Revlimid 5mg daily. Stable kappa/lambda ratio--no M-spike serum and urine testing. Quant immunoglobulins normal. I will f/u with myeloma labs in 3 months--CBC, CMP, SPEP, quant IGs, kappa/lambda light chains and beta2 microglobulin. He and his are in agreement with this plan. Low complexity visit. 02/27/2021: Here for 3-month follow-up, prior autologous stem cell transplant 07/25/2020. No limitations of daily activities--normal appetite, denies pain. Previously noted increased rash over bilateral antecubital areas, chest and back. He is titrating off gabapentin due to improving neuropathy and rash mildly better. Still on Revlimid 5mg daily. Uses benadryl prn for pruritus andrash. Will contact for post transplant vaccines. Stable kappa/lambda ratio--no M-spike serum and urine testing. Quant immunoglobulins normal. I will f/u with myeloma labs in 3 months--CBC, CMP, SPEP, quant IGs, kappa/lambda light chains and beta2 microglobulin. He and his are in agreement with this plan. 11/26/2020: Patsy is here for followup after D86 bone marrow biopsy at [facility] on 10/18/2020. No evidence of MRD--0.5% plasma cells andno clonal plasma cells suggestive of residual myeloma. Tolerating maintenance Revlimid 5mg daily well. No bone pain and normal renal function--Dr. Vincent hasreleased for annual nephrology followup. He is fully vaccinated for [id number] and I contacted Dr. Hall for coordination of post transplant vaccines. Stable neuropathy with gabapentin escalated to 400mg am, 300mg midday, 400mg pm. Continues followup with palliative medicine. He has phone f/u with Dr. Hall later this week. I will f/u with myeloma labs in 3 months--CBC, CMP, SPEP, quant IGs, kappa/lambda light chains and beta2 microglobulin. He and his are in agreement with this plan. 10/15/2020: Patsy is here with his for transfer of care after Melphalan 100mg/m2 autologous stem cell transplant D0 = 07/25/2021. He is now D+83 and oneweek ago, he saw Dr. Hall for survivorship visit. We reviewed his post transplant course and prior infections have now resolved. Blood counts have recovered and renal function at prior baseline. He has persistent neuropathy ongabapentin 200mg am, 100mg noon, 200mg pm. I'm setting him up for palliative consultation (previously followed by [facility] Olivia). He has a followup bone marrow biopsy scheduled with Dr. Hall in 3 days to document remission. I will discuss with him the plan after bone marrow biopsy--I briefly discussed Revlimidmaintenance with Mr. Mills and his . I will contact patient after bone marrow results to confirm plan with Dr. Hall and f/u with him in about 6 weeks with myeloma labs. 07/02/2020: Patsy has completed all of his pretransplant evaluation at [facility] including cardiology visit 11 9 which showed ejection fraction 60%. I have contacted Dr. Hall who noted that today will be his last day of Velcade and we will hold his daratumumab. He was to have a COVID-19 teston 07/11/2020 for planned stem cell collection 07/17 and transplant on 07/23. I clarified with the staff at [facility] this this may be performed at [facility] and forwarded to them. 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 His pain mainly in hips is about 3 out of 10 and controlled with Percocet. His next follow-up with me yeni be in about 4 months when he is post transplant although I am happy to see him sooner if new issues arise in his post transplant course that need to bemanaged closer to home. His most recent labs reveal improving hemoglobin (11.5), stable renal function (creatinine 1.35), normal calcium, and appropriateresponse of kappa light chain to now normal 18 with K/L ratio 2.02. 06/04/2020: Met with Dr. Hall on 05/24/2020 to discuss planning for high-dose chemotherapy peripheral blood stem cell transplant. He has now hemodialysis independent after daratumumab, dexamethasone, and Velcade with addition of Revlimid. Today he reports that he has had increased neuropathy symptoms in hisbilateral hands and feet with mild interference with activity (grade 2). We discussed a 25% dose reduction of Velcade on day 1, day 4, day 8, day 11 with current cycle of DVdR. He has some leg cramps at night, with normal magnesium, but low iron saturation noted--will start daily iron for symptoms. Otherwise heis tolerating therapy well and creatinine is now normal. He was given educationfor the transplant course and he is scheduled in late June after Thanksgiving to proceed with stem cell collection and transplant. I will communicate with Dr. Hall regarding end of therapy and in 1 month I will see him with follow-up myeloma studies. No other new concerns today. 05/07/2020: Patsy is here for 1 month follow-up. Outpatient hemodialysis was stopped after 04/24/2020 due to excellent response. He was evaluated by Dr. Small at [facility] on 04/26/2020. Don and his note that Dr. Hall felt that he was physiologically about 8 years younger than his chronologic age and would likely be transplant eligible if pretransplant work-updeems this feasible. He recommended continuing current daratumumab and Velcade with low-dose Revlimid. He will reevaluate patient in 1 month and likely plan admission for stem cell collection, then high-dose chemotherapy/autologous stem cell transplantation in June or July. The patient's was concerned that she did not understand much of the pretransplant teaching and I explained to her and Don the pathophysiology of plasma cells, light chains, his improving trend of renal function, goal of 90% kappa/lambda ratio reduction prior to transplant. We also refilled Revlimid 5 mg every other day, weekly vitamin D, and I am giving him a trial of tramadol 50 mg every 12 hours as Tylenol is not effective for his pain and we are avoiding NSAIDs and additional aspirin. He otherwise has no toxicities of chemotherapy. He sees Dr. Heath for follow-up tomorrow and maintains insulin with stabilization of his blood sugars following with diabetes management clinic. I will see him in follow-up with myeloma labs in 1 month plan end of therapy prior to transplant. 04/09/2020: Here for one month f/u with his . He continues outpatient hemodialysis on Thursday//Saturdays. He notes fatigue, but generalized edema remarkably improved with no significant pain. I reviewed his M-spike, IgGand kappa light chains with K/L ratio that has remarkably improved (>90% reduction past month). [place] light chains decreased from 12,000 to 42. Only concern is significant hyperglycemia with dexamethasone. 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 I will coordinate evaluation by Dr. Quique Hall for HDC/autologous stem cell transplantevaluation and hold on adding Revlimid since significant response of light chains noted. I contacted Dr. Rahman of nephrology to consider reducing hemodialysis days to twice weekly. I will send myeloma labs in about 4 weeks, have him see Dr. Hall and f/u with me the following week to review plan and determine whether plan for HDC/stem cell transplant. 03/14/2020: Patient presents with his today after initiating both outpatienthemodialysis on Thursday//Saturdays and initial cycle of daratumumab, bortezomib, dexamethasone with potential addition of Revlimid after 1 month if less than optimal response. He received his first cycle of combination chemotherapy 03/12/2020. --Patient tolerated initial daratumumab infusion reasonably well with brief infusion reaction (dizziness and mild wheezing) that was treated with diphenhydramine, steroids, albuterol, and Demerol for rigors. He completed remaining infusion in an outpatient bed on the inpatient [place] Thursday and we anticipate further weekly daratumumab infusions as an outpatient. --Patient was seen at dialysis today and noted to have hemoglobin 6.8. He will receive 1 unit of packed red blood cells prior to Velcade today for scheduled tomorrow. His was unable to be present at the hospital at time of diagnosis and his initial bone marrow biopsy was performed on 03/08/2020. She requests evaluation with him today for extensive questions regarding his care. She reported her session and requested a copy of this progress note following our visit today. 1. She asked if all the tests at the hospital returned. We discussed the teststhat are used to follow-up myeloma including his elevated IgG, elevated free kappa light chains, and elevated M spike. We discussed in detail the pathophysiology of myeloma but she felt very anxious and overwhelmed and I reassured her that we will readdress this at further follow-up visits. 2. Patient had a metastatic bone survey showing no areas of lytic disease or pathologic fractures. We discussed CRAB criteria for multiple myeloma diagnosisand that he meets criteria of R renal and A anemia, but not elevated calcium or bone disease (C and B). She specifically asked is stage of multiple myeloma andwe noted that he still will require beta-2 glycoprotein (ISS) but is most consistent with stage III. We are still awaiting his chromosomal abnormalities by fluorescence in situ hybridization and will readdress at next follow-up visitwith his final bone marrow biopsy results (this study was only performed 03/08/2020). 3. She wanted to know if his testing showed cancer elsewhere. We discussed that since metastatic bone survey showed more lytic areas I do not feel that F-18 PET is high priority but this may be ordered at some point to assess for any asymptomatic bony metastatic disease. 4. He has recently had elevated blood sugars and does not have a history of diabetes, but we discussed that with weekly steroids he should likely have additional insulin on his steroid days. I offered that this could be managed byhis primary physician Dr. Heath and he could be referred for diabetes management clinic. 5. We reiterated multiple times that his schedule may be variable. He will typically have a long infusion on Mondays with daratumumab but initially he willpresent twice weekly for Velcade injection on Mondays and . This will change during the course of his therapy and he should refer to his calendar. 6. We discussed not taking additional vitamins unless approved by nephrology. I also discussed potentially adding Revlimid and we will address at future visits if this is needed based on his follow-up labs ordered 04/02/2020. His medications may be filled either locally or with his prescription plan, but manyof these will be ordered by nephrology. He is to continue vitamin D2 as recommended by nephrology. Blood pressure medications will be regulated by primary care and nephrology. 7. We discussed concerning side effects, most commonly hyperglycemia, insomnia,risk of thrombosis (recently was diagnosed with left superficial thrombosis of the left upper extremity and additional heparin is given with his dialysis), andneuropathy with Velcade. Patients do not tend to have significant nausea or possible appetite (effects of dexamethasone increase his appetite). I cannot recommend medical marijuana and would discuss this with his pre coder whetherthis would interfere with dialysis. We will also follow closely for cytopenias and reviewed infectious precautions. He has a son from [place] who plans to visit on Thursday and we discussed COVID-19 testing appropriate social isolation protocols. 8. We discussed whether he was eligible for transplant and this will be evaluated based on his response and overall health in likely 3 to 4 months afterinitiation of therapy. We did not discuss autologous stem cell transplant in detail. We did discuss that although this is not curative therapy, many patients are controlled with medication over longer periods of time (often 5 to 6 years) with appropriate therapy. It is an aggressive cancer due to its significant infectious risk and association with renal failure. 9. Exercise may be performed as tolerated but should be done in moderation and likely we should wait a few weeks for more significant exercise given his recentdialysis and initiation of chemotherapy. I did not specifically address his diet but he may address this with our [facility] nutrition team. He will also receivechemotherapy class with our nurses in the infusion center. PRELIMINARY HISTORY (from initial consult 03/08/2020): This is a now 77-year-old male who was transferred from [place] emergency room by [facility] due to critical potassium 8.7 with elevated creatinine 11.2 and BUN 82 on 03/04/2020. We do not have any recent blood work for comparison but hehad normal creatinine in 2012. He was urgently treated for his hyperkalemia anddialysis was arranged emergently by nephrology team. He has now stabilized on dialysis and had extensive work-up for etiology of his acute renal failure with severe anemia felt to be due to anemia of renal insufficiency. Iron studies returned normal with ferritin 160, but B12 low at 84 and folate low normal at 5.2. He is receiving appropriate B12 repletion. The patient reports that he has had a prolonged period of fatigue up to a year and has decreased appetite with subjective weight loss. He denies any significant bone pain other than pain in his right shoulder and has no prior falls or recurrent back pain. He hada shoulder film showing labral pathology of the joint but no fracture or dislocation. Myeloma labs were sent showing M spike 3.6 g/dL with serum immunofixation showing IgG kappa light chain specificity. Serum IgG markedly elevated at 5312 and free kappa light chain 12,649.9 with normal free lambda light chain 11.94 free kappa/lambda ratio 1063. Hepatitis A, B, and C serologies were all negative and COVID-19 screening was negative. LORE, c-ANCA, p-ANCA, anti-GBM, and antimyeloperoxidase were all negative. Clinically the patient has multiple myeloma and I explained that we needed to proceed with bone marrow aspiration and biopsy to provide baseline for diagnosis and to expedite chemotherapy with an aggressive regimen to reduce his light chains. I will review information with him at noon today around the time of his bone marrow biopsy for combinationdaratumumab 16 mg/kg IV weekly, bortezomib 1.3 mg/kg subcu twice weekly, dexamethasone 40 mg weekly, and Revlimid 25 mg p.o. daily days 1 through 14 of each 21-day cycle. Revlimid will be ordered through a special pharmacy. We will schedule his infusions as an outpatient early next week on his nondialysis days. Written literature for these medications will be provided and he may signinformed consent so that we may order this regimen as an outpatient. The patient's is not with him today but has been treated by me for breast cancer in the past and had multiple questions. We would like to arrange a time for her to be available to ask questions and be present for chemo consent, possibly around noon today. This will need to be coordinated with nursing staffdue to [facility]- visitor restriction policy. - Summary of Therapies Summary of Therapies: Cycle 1 day 1 03/12/2020: Daratumumab 16 mg/kg IV weekly, bortezomib 1.3 mg/kg subcu twice weekly, dexamethasone 40 mg weekly. 04/09/2020: Under direction of Dr. Hall, in early April we added Revlimid 5 mg every other day of each 21-day cycle with cycle 2 due to excellent response of kappa light chains. 04/26/2020: Malignant hematology eval for possible high-dose chemotherapy/autologous stem cell transplant. He was able to stop dialysis 04/24/2020. Given Velcade only (hold daratumumab) on 07/02/2020. 07/25/2020: Melphalan 100mg/m2 IV day 0 autologous stem cell transplant 07/25/2020at [facility]. 11/26/2020: Follow-up bone marrow aspiration and biopsy 10/18/2020 for MRD evaluation shows hypocellular marrow with 0.5% plasma cells, no clonal population by flow cytometry but 0.03% kappa light chain skewing. Started Revlimid 5 mg daily for maintenance therapy early October 2020. Nondiagnostic bone marrow for MRD in spring 2021 at . Planned follow-up bone marrow biopsy for MRD at [facility] fall 2021. -- 02/05/2022: Revlimid on hold since 12/12/2021 for cytopenias. Continue to follow off Revlimid 1 more month, then with improved anemia in 02/2022, we resumed 5 mg every other day maintenance. -- 06/27/2022: Holding Revlimid 5mg every other day one month due to undetectable clonal cells on Clonoseq, increased fatigue/urinary symptoms. --07/28/2022: Continue to HOLD Revlimid for time being; as patient is still fatigued and s/p TURP with Dr. Cortez of urology at [place] 08/27/2022. ROS Details: All systems reviewed & no additional complaints except as documented Subjective/ROS - Narrative: CONSTITUTIONAL: Mild increased chronic fatigue since HD Melphalan/ASCT 07/2020, negative for fever or night sweats. Post-transplant infections as per HPI, now resolved. HEAD AND NECK: Stable vision since control of his diabetes mellitus. Negative for changes in hearing. Negative for mouth ulcers, nasal congestion and nasal drainage. PULMONARY: Negative for chest pain, cough and dyspnea. CARDIOVASCULAR: Negative for claudication and irregular heartbeat/palpitations. Resolved edema since diagnosis, now off dialysis. GASTROINTESTINAL: Negative for abdominal pain, constipation, diarrhea, nausea orvomiting. Improved appetite and 20 kg weight loss after starting dialysis, chemotherapy, and transplant for light chain nephropathy. 11/2020--returned to baseline weight pretransplant. GENITOURINARY: Negative for dysuria and hematuria. Improved urinary output, diagnosed in February 2020 with renal failure requiring dialysis--off dialysis 04/24/2020. Prior nephrolithiasis previously followed by Dr. Seals--recent ESWL 01/14/2022 at [place]. ENDOCRINE: Negative for cold intolerance and heat intolerance. Improvement of prior hyperglycemia with home blood sugars in the 100-200s on supplemental insulin glargine. CENTRAL NERVOUS SYSTEM: Negative for gait disturbance and headache. No focal neurologic deficits or history of stroke. 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 PSYCHIATRIC: Negative for anxiety or depression. DERMATOLOGICAL: Positive for pruritus and rash as per HPI. Negative for suspicious skin lesions. MUSCULOSKELETAL: Resolved back pain and and thigh pain. Resolved leg cramps, improved neuropathy. No longer on ferrous sulfate post transplant. HEMATOLOGICAL: Negative for bleeding and easy bruising. Transfusion 2 units packed red blood cells 01/23/2022 for hemoglobin 6.7. Only other transfusion was 2 units red cells October 2021. Positive for left basilic vein thrombus on Doppler ultrasound 03/12/2020--no longer requires anticoagulation. Revlimid decreased to 5mg every other day--held since 06/27/2022. ALLERGY: Negative for environmental allergies and food allergies. PMFSH - History Attestation statement: The following information was validated with the patient. Source: Old Records Reviewed - Medical History Medical History: Medical History (Last Reviewed 09/03/22 @ 09:17 by Brook Huddleston MD) Apnea Arthritis Diabetes mellitus, type 2 Hyperlipidemia Hypertension Kidney stones Multiple myeloma Skin cancer - Family History Family History: Family History (Last Reviewed 09/03/22 @ 09:17 by Brook Huddleston MD) Sister Myocardial infarct Mother Myocardial infarct Father Skin cancer - Social History Smoking Status: Former smoker Tobacco Type: cigarettes Substance Use Type: None Home Medications & Allergies Allergies gabapentin Allergy (Verified 09/03/22 08:46) Rash mirabegron [From Myrbetriq] Adverse Reaction (Verified 09/03/22 08:46) Diarrhea Home Medications insulin glargine 100 unit/mL (3 mL) subcutaneous pen (Lantus Solostar U-100 Insulin) 25 unit subcut DAILY 04/27/20 [History Confirmed 09/03/22] insulin lispro 100 unit/mL subcutaneous pen (Humalog KwikPen (U-100) Insulin) 6 - 16 unit subcut DIRECTED 04/27/20 [History Confirmed 09/03/22] atorvastatin 20 mg tablet 20 mg PO DAILY 10/15/20 [History Confirmed 09/03/22] cholecalciferol (vitamin D3) 50 mcg (2,000 unit) capsule (Vitamin D3) 50 mcg PO DAILY 10/15/20 [History Confirmed 09/03/22] aspirin 81 mg tablet,delayed release 81 mg PO DAILY 11/26/20 [History Confirmed 09/03/22] metformin 500 mg tablet 500 mg PO BID 11/26/20 [History Confirmed 09/03/22] potassium chloride 20 mEq tablet,extended release 20 meq PO DAILY #90 tabs 06/23/22 [Rx Confirmed 09/03/22] lenalidomide 5 mg capsule (Revlimid) See Rx Instructions .Route .COMPLEX #14 caps 06/27/22 [Rx Confirmed 09/03/22] oxybutynin chloride 5 mg tablet 2.5 mg PO DAILY 07/28/22 [History Confirmed 09/03/22] famotidine 20 mg tablet 20 mg PO DAILY 09/03/22 [History Confirmed 09/03/22] Objective - Height/Weight Height/Weight: Height 5 ft 10 in Weight 91.8 kg BSA for Today's Weight 2.10 - Vital Signs Vital Signs: 09/03/22 08:47 Temperature 97.9 F Pulse Rate [Monitor] 98 H Respiratory Rate 16 Blood Pressure [Left Arm] 156/69 H 02 Sat by Pulse Oximetry 99 Oxygen Delivery Method Room Air - Pain Right Hip Pain Intensity: 5 Generalized Pain Intensity: 1 Left Upper Arm Pain Intensity: 4 Physical Exam Narrative: CONSTITUTIONAL: The patient is in no acute distress. Stable fatigue but can ambulate independently. HEAD / FACE: Normocephalic. EYES: Pupils are equal and reactive to light. Conjunctivae and lids are benign in appearance. Ocular movement intact. EARS: Hearing grossly intact. NOSE / MOUTH / THROAT: Nose, mouth, tongue and oropharynx are benign in appearance. No signs of inflammation. NECK / THYROID: Neck is supple. Thyroid is symmetrical, without thyromegaly, masses or palpable nodules. LYMPHATIC: No palpable cervical, supraclavicular, axillary, or inguinal adenopathy. RESPIRATORY: Normal to inspection. Lungs clear to auscultation and percussion. No wheezing, rales, rhonchi or rubs. Normal effort. CARDIOVASCULAR: Regular rate and rhythm. No murmurs, gallops, or rubs. VASCULAR: Carotid, radial, femoral and pedal pulses present bilaterally. No bruits. ABDOMEN: Bowel sounds normoactive. Soft, nontender and non-distended. No hepatosplenomegaly. No masses. GENITOURINARY: No CVA tenderness. No suprapubic fullness or tenderness. No groinadenopathy. No evidence of hernias. INTEGUMENTARY: The skin is unremarkable. Resolved antecubital/chest rashes. No suspicious lesions BACK / SPINE: The back is nontender. No step-off deformity. No CVA tenderness. MUSCULOSKELETAL: Normal musculature, no joint deformities or abnormalities, normal range of motion for all four extremities. EXTREMITIES: No longer has bilateral lower extremity edema; no cyanosis or clubbing. No Vitor sign. NEUROLOGICAL: Alert and oriented. Cranial nerves intact. No gross motor or sensory deficits. PSYCHIATRIC: No anxiety or evidence of depression. - ECOG Performance Status ECOG Score: 1 Results - Labs Labs: Diagram of Most Recent CBC and CMP 08/20/22 10:36 08/20/22 10:36 - Impressions No new imaging for review. 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 He had marked elevation in IgG kappa on initial laboratory work-up for renal failure in February 2020. He has remained hemodynamically stable and I discussed in detail with the patient the pathophysiology of multiple myeloma and associated injury to kidneys, persistentanemia, bone disease, and potential hypercalcemia (we do not see hypercalcemia in this patient). He consented to inpatient bone marrow biopsy 03/08/2020 which was diagnostic for multiple myeloma--70% plasma cells without amyloid depositionidentified in small marrow specimen. Normal baseline skeletal survey. I reviewed pathophysiology of myeloma, results of bone marrow biopsy, skeletal survey, and myeloma labs with the patient and his . --Patsy consented to begin first cycle Daratumumab, Velcade, and dexamethasone on 03/12/2020--other than infusion reaction from first Daratumumab, improved withsymptomatic therapy. I reviewed his case with Dr. Quique Hall of Malignant Hematology--added Revlimid 5mg qod following significant reduction of light chains in early April 2020. 05/07/2020: As per HPI, Angel and his met with Dr. Hall 04/26/2020 with preparation for likely high-dose chemotherapy/autologous peripheral stem cell transplant if he meets criteria based on cardiopulmonary work-up. He has had greater than 90%. The patient was able to discontinue hemodialysis on 04/24/2020 and has not had any recurrence of edema with now improved renal function, creatinine clearance now 53. --I will continue current therapy with further evaluation by Dr. Hall in 1 month for planning his HDC/autologous stem cell transplant. We will send repeatmyeloma labs (SPEP, IgG, kappa/lambda light chains) in 4 weeks with f/u visit with me the following week to review results as well as evaluation with Dr. Hall for possible stem cell transplant. 06/04/2020: Tolerating chemotherapy well other than increasing neuropathy of hands and feet. Dose reduced Velcade by 25% next cycle. Added daily ferrous sulfate. --He was referred to diabetes management clinic and sees Dr. Heath with regularfollow-up by Dr. Josiah since he is off dialysis. Diabetes control improved. 07/02/2020: Last dose of Velcade today. Neuropathy is stable and pain is well controlled. He will have COVID-19 test on 07/11/2020 for planned admission for stem cell collection on 07/17/2020 then high-dose melphalan followed by peripheral blood stem cell transplant day 0 scheduled 07/23/2020. His next follow-up with ga will be in about 4 months after he is completed day 100 transplant follow-up. He may return sooner as needed. 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 Melphalan 100mg/m2 + ASCT Day 0 07/25/2020. 11/26/2020: Followup of [facility] end of therapy bone marrow biopsy 10/18/2020--no minimal residual disease. Started Revlimid maintenance 5mg daily in early October2020. 02/27/2021: No new symptoms other than rash. Slow improvement of neuropathy--titrating off gabapentin with palliative medicine. Benadryl for rash. Continue Revlimid 5mg daily. He will be due for first post transplant vaccines sooner--will check schedule with . 05/30/2021: Rash and neuropathy improved. Tolerating Revlimid well. Discussedcoronavirus booster and influenza vaccines. Post transplant vaccines due in 07/2021. No M-spike and normal kappa/lambda ratio. 10/03/2021: Multiple admissions for hyperkalemia, renal insufficiency due to dehydration, anemia requiring transfusion. Still feels weak and dizzy and his electrolyte disorders are being managed by primary care. No detectable M spike's and kappa/lambda light chain ratio is normal with elevated levels of both likely due to recent infections. Skeletal survey without new lytic lesions. He is due for MRD bone marrow follow-up with Dr. Hall next month. For now continue Revlimid 5 mg daily. 01/02/2022: Patient presents with his who is concerned with increasing fatigue. He has had a decline in his hemoglobin to 8 although his renal function is actually improved from prior values with creatinine clearance of 50. We sent serum iron profile showing increased iron stores with iron saturation 72% and ferritin 663. Homocystine was normal methylmalonic acid is pending. [place]rick also send an erythropoietin level to see if there may be a benefit to adding erythropoietin for anemia of chronic kidney disease. He will continue to follow with Dr. Meade. He still has no M spike on serum protein electrophoresis and normal kappa/lambda light chain ratio. MRD testing at [facility] was nondiagnostic and he will have repeat bone marrow biopsy here with me to send MRD testing. Next followup with me in 3 months for exam and f/u myeloma labs. We will coordinate his bone marrow biopsy at that time. He will continue follow-up by nephrology for chronic kidney disease although his prior hyperkalemia has improved on recent labs. May return sooner if new issues arise. 02/05/2022: Patient has persistent fatigue although did require transfusion 2 weeks ago for hemoglobin 7.6. Iron studies show increased iron saturation and ferritin with normal methylmalonic acid and homocystine. Erythropoietin level is elevated therefore he does not have an indication for erythrocyte stimulating agents. Myelosuppression is likely due to prior Revlimid and I willkeep him off therapy for another 1 month with repeat CBC at that time. If anemia is improving I will resume Revlimid at 5 mg every other day maintenance therapy. He will be scheduled for MRD bone marrow at [place] [facility] in April 2022, then follow-up with me with review of myeloma labs 3 months after this procedure. He still has undetectablemonoclonal spike and normal kappa/lambda light chain ratio on most recent labs. Renal function is improving since ESWL at [place] in late December. 05/23/2022: No new issues, bone marrow biopsy 04/30/2022 in shows no morphologic evidence of myeloma, but specimen was not sent for MRD testing. Patient agreed to bone marrow aspirate only today performed for MRD testing and documented in a separate procedure note. Normal trilineage hematopoiesis on bone marrow biopsy with increased iron stores. Revlimid now down to 5mg every other day. Will review MRD testing with myeloma labs (SPEP for monoclonal spike and kappa/lambda light chain ratio) at next followup in 4 weeks. Considerfurther Revlimid dose reduction if persistent anemia on CBC with CMP and if MRD negative. 06/27/2022: Notes increased fatigue and increased urine frequency despite recent Urolift procedure. Intolerant of Myrbetriq. Clonoseq reveals no clonal tumor cells. Recommend holding Revlimid 1 month for cytopenias and persistent fatigue due to quality of life concerns. He will followup with Dr. Hall next week to discuss holding Revlimid. If symptoms improved at one month followup with [facility], he will followup with me in one month with CBC, CMP, SPEP for monoclonal spike and kappa/lambda light chain ratio. 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 His primary complaint is urinary symptoms and increased urinary frequency - not sleeping well due to waking up frequently with urination. He is planning on undergoing TURP with Dr. Cortez this 07/31/2022. He is still fatigued, still not much energy or appetite; but overall no significant changes. He saw Dr. Hall on 07/03/2022 and his note was reviewed. He mentioned that it would bebeneficial for patient to continue Revlimid if able; he was also taken off Acyclovir and advised to follow up with Dr. Hall in 1 year with MRD testing. - follow up in [address] Huddleston with CBC, CMP, SPEP for monoclonal spike and kappa/lamda light chain ratio. - continue to hold Revlimid pending urology procedure and continued fatigued. Dr. Hall discussed resuming Revlimid if able- per , he discussed decreasingdosage to 2.5 mg. - most recent labs show stable renal fxn; continued anemia with hgb - 8.6 and platelet count 101,000. No monoclonality with urine immunofixation; recent SPEP showed asymmetrical beta. 09/03/2022: Patsy has no new symptoms. Urinary symptoms have improved since TURP with Dr. Cortez 06/27/2023. No evidence of infection on urinalysis. Fatigue is slowly improving off Revlimid the last 2 months. He does have persistent anemia with hemoglobin 8.1, persistent macrocytosis. I am rechecking his methylmalonic acid and homocystine as he is on monthly parenteral B12 but we mayneed to give him further loading doses over the next 8 weeks if elevated methylmalonic acid and homocystine. I am also rechecking his iron studies although his last iron saturation in December was 72% with elevated ferritin. If he hasnormal or elevated iron stores and normal B12 and folate stores, we will assess his erythropoietin level for possible Aranesp therapy for anemia of chronic kidney disease. He follows up with nephrology next month. We will defer his next follow-up with myeloma labs CBC, CMP, SPEP/serum immunofixation for monoclonal spike, quantitative immunoglobulins, and kappa/lamda light chain ratio to 4 months or sooner as needed. The patient is are in agreement with this plan over this 35-minute follow-up visit. (2) Anemia of renal disease Hemoglobin has decreased to 8 and iron stores show increased iron saturation andferritin. He no longer takes supplemental iron but has ongoing B12 repletion 1 mg p.o. daily. Methylmalonic acid is pending to assess whether B12 repletion isadequate. We are also sending an erythropoietin level and if methylmalonic acidis normal, we will initiate erythropoietin therapy for anemia of chronic kidney disease. I will update nephrology if decision to add erythrocyte stimulating agent therapy. I will contact him with these results and coordinate repletion therapy. In addition the patient is on chronic Revlimid which it is myelosuppressive. -- Revlimid has was on hold 12/12/2021. He did require transfusion in early Januaryand had elevated iron saturation and ferritin, normal methylmalonic acid and homocystine, and increased erythropoietin level. We resumed Revlimid in early February. MRD bone marrow aspirate sent today--no dysplasia on bone marrow biopsy. For now may continue Revlimid 5mg every other day and consider further dose reduction if persistent anemia with MRD negative on f/u in one month. --As noted above we are holding Revlimid one month due to quality of life concerns and cytopenias. If improved symptoms at one month followup off Revlimid, we may continue to hold Revlimid and follow every 3 months. -- Slowly improving symptoms off Revlimid x 2 months, however anemia is slightlyworse with hemoglobin 8.1. Consider addition of Aranesp if normal B12, folate, and iron stores as noted above. We will continue off Revlimid until improvementof anemia. (3) History of hemodialysis Initiated inpatient hemodialysis 02/2020, then transitioned to outpatient hemodialysis 3 times weekly Thursday//Thursday schedule. Chemotherapy given Thursday/. 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 He was actually able to stop dialysis within 2 months with the last session 04/24/2020 as noted above. Over 2 years after Melphalan 100mg/m2 + autologous PBSCT given his significant response to initial myeloma directed therapy. Continued f/u with nephrology for stage III chronic kidney disease/resolved hyperkalemia. (4) Steroid-induced diabetes mellitus Qualifiers: Encounter type: subsequent encounter Qualified Code(s): E09.9 - Drug or chemical induced diabetes mellitus without complications; T38.0X5D - Adverse effect of glucocorticoids and synthetic analogues, subsequent encounter Patsy had an excellent response of light chains but was noted to have significant hyperglycemia 300-500 fasting blood sugars. He was referred to diabetes management clinic with addition of insulin therapy that has significantlyimproved control of his blood sugars. Patient also had remarked on some blurredvision that improved with control of blood sugars. Continue follow-up of blood sugars during admission for transplant in early July. 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 Resumed low dose metformin and titrating down insulin--directed by his primary physician. Recent injection (likely Avastin) for diabetic retinopathy. (5) B12 deficiency Patient was found to have B12 deficiency and was been placed on daily B12 prior to hospital discharge. We continued weekly IM B12 for 8 weeks with his myeloma regimen. Hemoglobin is improved on Aranesp and weekly B12, then changed to monthly maintenance therapy. He has not required further blood transfusions since 03/15/2020. Follow- up methylmalonic acid on 04/30/2020 was normal showing adequate replacement. He will continue monthly IM B12 and weekly vitamin D2 therapy 50,000 units orally for low 25 hydroxy vitamin D stores. He may take supplemental calcium once daily. -- 09/03/2022: Repeat methylmalonic acid, homocystine and will continue monthly B12 but may need further loading doses as noted above due to his persistent anemia (6) Encounter for chemotherapy management Started cycle 1 day 1 03/12/2020: Daratumumab 16 mg/kg IV weekly, bortezomib 1.3 mg/kg subcu twice weekly, dexamethasone 40 mg weekly. We added Revlimid 5 mg every other day of each 21-day cycle with cycle 2 due to excellent reduction of kappa light chains (recommended by Dr. Hall malignanthematology). 06/04/2020: 25% DR Bortezomib (100% all other meds) due to worsening neuropathy. Last dose of bortezomib 07/02/2020 and holding daratumumab per request of Dr. Hall. 07/25/2020: Melphalan 100mg/m2 + autologous PBSCT 10/18/2020: Started Revlimid 5 mg daily maintenance after bone marrow biopsy negative for MRD. Repeat MRD bone marrow at [facility] in 3 months because spring 2021 bone marrow at was nondiagnostic. -- Revlimid on hold 12/12/2021 due to myelosuppression. Continue to hold at 02/05/2022 follow-up visit. Resumed 5mg po every other day around February 2022 and willcontinue for now pending MRD testing. 06/27/2022: Now holding Revlimid due to fatigue and undetectable Clonoseq. 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 - planning to hold Revlimid with pending urology procedure for additional month;reviewed Dr. Hall's note from 07/03/2022; he mentioned it would be beneficial for patient to continue Revlimid if able - possibly at lower dose of 2.5 mg. [address] at next follow up visit with labs in 1 month. 09/03/2022: Continue to hold Revlimid for anemia work-up noted above. - Chemo Plan Chemo Plan (Dose, Rate, Freq): 09/25/2019: Melphalan 100mg/m2 + autologous PBSCT-->10/2020 Revlimid 5mg daily maintenance after MRD bone marrow biopsy. On hold 12/12/2021 due to anemia then 02/2022 resumed 5mg every other day. 06/27/2022: Revlimid on hold due to fatigue, cytopenias, and undetectable Clonoseq 09/03/2022: Holding Revlimid past 2 months due to persistent anemia. Continue tohold until further anemia work-up. Goal of Treatment: Control - Time with Patient Time Spent with Patient (Follow Up Visit): 35 minutes - review labs and planned followup, continue to hold Revlimid Coordination of Care & Counseling Time: Greater than 50% of time spent with patient was for coordination of care (as documented) and [id number] counseling of patient and/or family. Dictated By: Brook Huddleston MD DD/ [id number] Signed By: <Electronically signed by MD Brook Huddleston> 09/03/22 0925 [facility] Work Phone: Summary Purpose Family History Relationship Condition Age at Onset Recorded Date/T daphne sister Myocardial infarction Unknown Not Specified Myocardial infarction Unknown father Malignant neoplasm of skin Unknown Advance Directives Advance Directive Response Recorded Date/ Time Advance Directives No March 04 3:56am Advance Directive Response Recorded Date/ Time Advance Directives No March 04 2:56am Chief Complaint and Reason for Visit Chief Complaint N39.0 Multiple Myloma Reason for Visit Anemia of renal dise ase B12 deficiency Chemotherapy-induced peripheral neuropathy Encounter for chemotherapy management History of hemodialysis 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 Rash and nonspecific skin eruption Steroid-induced diabetes mellitus Superficial thrombophlebitis of left upper extremity Acute renal failure on dialysis Chief Complaint N39.0 Multiple Myloma I12.9 N17.9 E11.65 N18.30 I10 C90.00 E11.9 N20.0 N28.89 C90.00 Reason for Visit Anemia of renal dise ase B12 deficiency Chemotherapy-induced peripheral neuropathy Encounter for chemotherapy management History of hemodialysis 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 Rash and nonspecific skin eruption Steroid-induced diabetes mellitus Superficial thrombophlebitis of left upper extremity Acute renal failure on dialysis Chief Complaint N39.0 I12.9 N17.9 E11.65 N18.30 I10 C90.00 E11.9 N20.0 N28.89 C90.00 Multiple Myloma Reason for Visit Anemia of renal dise ase B12 deficiency Chemotherapy-induced peripheral neuropathy Encounter for chemotherapy management History of hemodialysis 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 Rash and nonspecific skin eruption Steroid-induced diabetes mellitus Superficial thrombophlebitis of left upper extremity Acute renal failure on dialysis Chief Complaint I12.9 N17.9 E11.65 N 18.30 I10 C90.00 E11.9 N20.0 N28.89 C90.00 Multiple Myloma Reason for Visit Anemia of renal dise ase B12 deficiency Chemotherapy-induced peripheral neuropathy Encounter for chemotherapy management History of hemodialysis 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 Rash and nonspecific skin eruption Steroid-induced diabetes mellitus Superficial thrombophlebitis of left upper extremity Acute renal failure on dialysis Chief Complaint N28.89 C90.00 Multiple Myloma Reason for Visit Anemia of renal dise ase B12 deficiency Chemotherapy-induced peripheral neuropathy Encounter for chemotherapy management History of hemodialysis 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 Rash and nonspecific skin eruption Steroid-induced diabetes mellitus Superficial thrombophlebitis of left upper extremity Acute renal failure on dialysis Chief Complaint Multiple Myloma Reason for Visit Anemia of renal dise ase B12 deficiency Chemotherapy-induced peripheral neuropathy Encounter for chemotherapy management History of hemodialysis 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 Rash and nonspecific skin eruption Steroid-induced diabetes mellitus Superficial thrombophlebitis of left upper extremity Acute renal failure on dialysis Chief Complaint Multiple Myloma Kidney stones Reason for Visit Anemia of renal dise ase B12 deficiency Chemotherapy-induced peripheral neuropathy Encounter for chemotherapy management History of hemodialysis 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 Rash and nonspecific skin eruption Steroid-induced diabetes mellitus Superficial thrombophlebitis of left upper extremity Acute renal failure on dialysis Chief Complaint Kidney stones Multiple Myloma N20.0 Reason for Visit Anemia of renal dise ase B12 deficiency Chemotherapy-induced peripheral neuropathy Encounter for chemotherapy management History of hemodialysis 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 Rash and nonspecific skin eruption Steroid-induced diabetes mellitus Superficial thrombophlebitis of left upper extremity Acute renal failure on dialysis Chief Complaint Kidney stones N20.0 nephrosis Multiple Myloma Reason for Visit Anemia of renal dise ase B12 deficiency Chemotherapy-induced peripheral neuropathy Encounter for chemotherapy management History of hemodialysis 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 Rash and nonspecific skin eruption Steroid-induced diabetes mellitus Superficial thrombophlebitis of left upper extremity Acute renal failure on dialysis Chief Complaint Kidney stones N20.0 nephrosis nephrosis Multiple Myloma Reason for Visit Anemia of renal dise ase B12 deficiency Chemotherapy-induced peripheral neuropathy Encounter for chemotherapy management History of hemodialysis 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 Rash and nonspecific skin eruption Steroid-induced diabetes mellitus Superficial thrombophlebitis of left upper extremity Acute renal failure on dialysis Chief Complaint Kidney stones N20.0 nephrosis nephrosis E11.9 C61 Z80.42 Multiple Myloma Reason for Visit Anemia of renal dise ase B12 deficiency Chemotherapy-induced peripheral neuropathy Encounter for chemotherapy management History of hemodialysis 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 Rash and nonspecific skin eruption Steroid-induced diabetes mellitus Superficial thrombophlebitis of left upper extremity Acute renal failure on dialysis Chief Complaint Kidney stones N20.0 nephrosis nephrosis E11.9 N39.0 C61 Z80.42 Multiple Myloma N13.30 R39.14 N32.81 N40.1 R31.21 Z87.442 Reason for Visit Anemia of renal dise ase B12 deficiency Chemotherapy-induced peripheral neuropathy Encounter for chemotherapy management History of hemodialysis 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 Rash and nonspecific skin eruption Steroid-induced diabetes mellitus Superficial thrombophlebitis of left upper extremity Acute renal failure on dialysis Chief Complaint Kidney stones N20.0 nephrosis nephrosis E11.9 N39.0 C61 Z80.42 N13.30 R39.14 N32.81 N40.1 R31.21 Z87.442 Cervical Radiolpathy Multiple Myloma Reason for Visit Anemia of renal dise ase B12 deficiency Chemotherapy-induced peripheral neuropathy Encounter for chemotherapy management History of hemodialysis 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 Rash and nonspecific skin eruption Steroid-induced diabetes mellitus Superficial thrombophlebitis of left upper extremity Acute renal failure on dialysis Chief Complaint Kidney stones N20.0 nephrosis nephrosis E11.9 N39.0 C61 Z80.42 N13.30 R39.14 N32.81 N40.1 R31.21 Z87.442 Cervical Radiolpathy Multiple Myloma n13.30 r39.14 z32.81 Reason for Visit Anemia of renal dise ase B12 deficiency Chemotherapy-induced peripheral neuropathy Encounter for chemotherapy management History of hemodialysis 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 Rash and nonspecific skin eruption Steroid-induced diabetes mellitus Superficial thrombophlebitis of left upper extremity Acute renal failure on dialysis Chief Complaint Kidney stones N20.0 nephrosis nephrosis E11.9 N39.0 C61 Z80.42 N13.30 R39.14 N32.81 N40.1 R31.21 Z87.442 Cervical Radiolpathy n13.30 r39.14 z32.81 Multiple Myloma hydronephrosis Reason for Visit Anemia of renal dise ase B12 deficiency Chemotherapy-induced peripheral neuropathy Encounter for chemotherapy management History of hemodialysis 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 Rash and nonspecific skin eruption Steroid-induced diabetes mellitus Superficial thrombophlebitis of left upper extremity Acute renal failure on dialysis Chief Complaint Cervical Radiolpathy n13.30 r39.14 z32.81 hydronephrosis n18.30 n17.9 i12.9 e11.65 i10 c90.00 e11.9 n20.00 xray Multiple Myloma Reason for Visit Anemia of renal dise ase B12 deficiency Chemotherapy-induced peripheral neuropathy Encounter for chemotherapy management Encounter for coordination of complex care History of anemia due to vitamin B12 deficiency History of hemodialysis 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 Rash and nonspecific skin eruption Steroid-induced diabetes mellitus Superficial thrombophlebitis of left upper extremity Urinary incontinence Acute renal failure on dialysis Chief Complaint xray Multiple Myloma N20.0 Reason for Visit Anemia of renal dise ase B12 deficiency Chemotherapy-induced peripheral neuropathy Encounter for chemotherapy management Encounter for coordination of complex care History of anemia due to vitamin B12 deficiency History of hemodialysis 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 Rash and nonspecific skin eruption Steroid-induced diabetes mellitus Superficial thrombophlebitis of left upper extremity Urinary incontinence Acute renal failure on dialysis Chief Complaint N20.0 Chief Complaint N20.0 n18.31 i12.9 i10 c90.00 e11.9 n20.0 d64.9 e87.5 Multiple Myloma Kidney stones, hydronephrosis Reason for Visit Anemia of renal dise ase B12 deficiency Chemotherapy-induced peripheral neuropathy Encounter for chemotherapy management Encounter for coordination of complex care History of anemia due to vitamin B12 deficiency History of hemodialysis 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 Rash and nonspecific skin eruption Steroid-induced diabetes mellitus Superficial thrombophlebitis of left upper extremity Urinary incontinence Acute renal failure on dialysis Reason for Referral Referred by: Diego RICKS, Vesna Taylor Additional Source Comments (unrecognized sect ion and content) No Status Records FoundNo Status Records FoundNo Status Records FoundNo Status Records FoundNo Status Records FoundNo Status Records FoundNo Status Records Found INFORMATION SOURCE (unrecogn ized section and content) DATE CREATED AUTHOR 09/07/2020 [employer] DATE CREATED AUTHOR AUTHOR'S ORGANIZ ATION [facility] DATE CREATED AUTHOR AUTHOR'S ORGANIZ ATION 12/15/2022 [facility] DATE CREATED AUTHOR AUTHOR'S ORGANIZ ATION 02/26/2023 [facility] DATE CREATED AUTHOR AUTHOR'S ORGANIZ ATION 04/18/2023 [facility] DATE CREATED AUTHOR AUTHOR'S ORGANIZ ATION 08/19/2023 [facility] DATE CREATED AUTHOR AUTHOR'S ORGANIZ ATION 08/28/2023 [facility] Care Team (unrecognized sect ion and content) Personnel Name: HELEN HEATH MD Address: Address: [address] [place] [address] Team Status: Active Member Role Status Dates Helen Heath MD Primary Care Provider Active Brook Huddleston MD Attending Provider Active Team Status: Inactive Member Role Status Dates Helen Heath MD Attending Provider Active PHYSICIAN NO FAMILY Primary Care Provider Active Team Status: Active Member Role Status Dates PHYSICIAN NO FAMILY Primary Care Provider Active Team Status: Inactive Member Role Status Dates Helen Heath MD Primary Care Provider Active Price Crain MD Attending Provider Active Team Status: Inactive Member Role Status Dates Helen Heath MD Primary Care Provider Active Brook Huddleston MD Attending Provider Active Team Status: Active Member Role Status Dates Helen Heath MD Primary Care Provider Active Team Status: Inactive Member Role Status Dates Helen Heath MD Primary Care Provider Active Vesna Cortez MD Attending Provider Active Price Crain MD Referring Provider Active Team Status: Inactive Member Role Status Dates Helen Heath MD Primary Care Provider Active Vesna Cortez MD Attending Provider Active Team Status: Inactive Member Role Status Dates Helen Heath MD Primary Care Provider, Attending P aleja Active Team Status: Inactive Member Role Status Dates Helen Heath MD Primary Care Provider, Other Provi corazon Active Vesna Cortez MD Attending Provider Active 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 Specialty Start Date End Date Helen Heath MD [address] [place] [id number] PCP - General Family Medicine 02/11/23 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 Specialty Start Date End Date Helen Heath MD [address] [place] [phone] PCP - General Family Medicine 02/11/23 REASON FOR VISIT (unrecogniz ed section and content) Reason Comments Follow Up Reason Comments Anesthesia Consult Urethral stricture Reason Onset Date Comments Refill Request 02/25/2023 Goals (unrecognized section and content) Goals may be documented in a n alternate section Source Comments (unrecognize d section and content) In the event this informatio n is protected by the Federal Confidentiality of Alcohol and Drug Abuse Patient Records regulations: The Federal rules restrict any use of the information to criminally investigate or prosecute any alcohol or drug abuse patient.[facility] the event this information is protected by the Federal Confidentiality of Alcohol and Drug Abuse Patient Records regulations: The Federal rules restrict any use of the information to criminally investigate or prosecute any alcohol or drug abuse patient.[facility] the event this information is protected by the Federal Confidentiality of Alcohol and Drug Abuse Patient Records regulations: The Federal rules restrict any use of the information to criminally investigate or prosecute any alcohol or drug abuse patient.[facility] FOR RECORDS PERTAINING TO PATIENTS WHO ARE OR HAVE BEEN ENROLLED IN A CHEMICAL DEPENDENCY/SUBSTANCEABUSE PROGRAM, SOME INFORMATION MAY BE OMITTED. This clinical summary was aggregated from multiple sources. Caution should be exercised in using it in the provision of clinical care. This summary normalizes information from multiple sources, and as a consequence, information in this document may materially change the coding, format and clinical context of patient data. In addition, data may be omitted in some cases. CLINICAL DECISIONS SHOULD BE BASED ON THE PRIMARY CLINICAL RECORDS. [facility] provides no warranty or guarantee of the accuracy or completeness of information in this document.
--- NOTE | 2023-09-09 11:17 | XR_ITS ---
The [address] [address] Patient Name: PATSY CUNNINGHAM MRN: [id number] date: 1945 Sex: M Assigned Patient Location: [facility] Current Patient Location: [facility] Accession/Order Number: [id number] Exam Date: 09/09/2023 11:58 Report Date: 09/09/2023 12:23 At the request of: ORQUIDEA TORRES Procedure: XR chest 2V EXAM: XR chest 2V HISTORY: Preop exam COMPARISON: 07/17/2022 TECHNIQUE: Upright PA and lateral chest x-ray FINDINGS: The heart is not enlarged and the vasculature is not distended. No acute infiltrate, effusion or pneumothorax is identified. Degenerative changes are seen in the spine. The proximal aspect of the right kidney stent is noted. XR/XR chest 2V IMPRESSION: No acute infiltrate or evidence of cardiac decompensation. Except for the stent in the right kidney, the overall appearance of the chest is essentially unchanged. Electronically authenticated by: PRINCESS DEL CASTILLO Date: 09/09/2023 12:23
[2023-09-09 12:54] LABS: Prostate Specific Antigen Dx 0.71 ng/mL (<=4.00)
== END 2023-09-09 10:47 | disposition home or self-care (01) ==
LOC: PST 10:46
PROVIDERS: PCP Family Medicine; Visit Provider Urology
DX: Z01.810 Encounter for preprocedural cardiovascular examination (principal); I10 Essential (primary) hypertension; E11.9 Type 2 diabetes mellitus without complications; N13.1 Hydronephrosis with ureteral stricture, not elsewhere classified; N32.81 Overactive bladder; N32.89 Other specified disorders of bladder
CPT/HCPCS: 71046; 84153; 87086; 87150; 87186

== ENCOUNTER 2023-09-09 10:56 | Outpatient (OUT) | payer MEDICARE, SELFPAY ==
[2023-09-09 12:01] LABS: Basophils Percent Auto 0.4 % (0.2-2.0); Eosinophils Absolute Auto 0.6 10^3/uL (0.0-0.7); Eosinophils Percent Auto 7.5 % (0.9-7.0); Hematocrit 28.9 % (42.0-54.0); Hemoglobin 9.2 g/dL (14.0-18.0); Immature Granulocytes Abs Auto 0.01 10^3/uL (0.00-0.03); Immature Granulocytes Pct Auto 0.1 % (0.0-0.5); Lymphocytes Absolute Auto 1.1 10^3/uL (1.2-3.8); Lymphocytes Percent Auto 15.4 % (20.5-60.0); Mean Corpuscular HGB Conc 31.8 g/dL (29.9-35.2); Mean Corpuscular Hemoglobin 35.7 pg (25.9-34.0); Mean Platelet Volume 10.3 fL (9.5-13.5); Monocytes Absolute Auto 0.6 10^3/uL (0.3-0.8); Monocytes Percent Auto 7.5 % (1.7-12.0); Neutrophils Absolute Auto 5.1 10^3/uL (1.4-6.5); Neutrophils Percent Auto 69.1 % (43.0-75.0); Platelet Count 176 10^3/uL (150-450); Red Blood Count 2.58 10^6/uL (4.70-6.10); Red Cell Distribution Width 16.2 % (11.0-15.0); White Blood Count 7.4 10^3/uL (4.0-11.0)
[2023-09-09 12:16] LABS: Alanine Aminotransferase 23 U/L (16-63); Albumin Globulin Ratio 0.9; Albumin Level 3.4 g/dL (3.4-5.0); Alkaline Phosphatase 101 U/L (46-116); Anion Gap 10.2; Aspartate Amino Transferase 17 U/L (15-37); BUN Creatinine Ratio 13.7; Bilirubin Total 0.4 mg/dL (0.2-1.0); Calcium 9.2 mg/dL (8.5-10.1); Chloride 102 mmol/L (98-107); Estimated GFR (African America 46 (>=60); Estimated GFR (Non-African Ame 38 (>=60); Globulin 3.7 g/dL; Glucose 102 mg/dL (74-106); Potassium 4.2 mmol/L (3.5-5.1); Sodium 133 mmol/L (136-145); Total Protein 7.1 g/dL (6.4-8.2)
== END 2023-09-09 10:57 | disposition home or self-care (01) ==
LOC: LAB 10:56
PROVIDERS: PCP Family Medicine
DX: Z01.812 Encounter for preprocedural laboratory examination (principal); I10 Essential (primary) hypertension; N13.1 Hydronephrosis with ureteral stricture, not elsewhere classified; E11.9 Type 2 diabetes mellitus without complications; N32.81 Overactive bladder; N32.89 Other specified disorders of bladder; N18.9 Chronic kidney disease, unspecified; D63.1 Anemia in chronic kidney disease
CPT/HCPCS: 80053; 84153; 85025; 87086; 87150; 87186

== ENCOUNTER 2023-09-23 11:30 | Day surgery (SDC) | payer MEDICARE, SELFPAY ==
[2023-09-09 11:47] VITALS: BP 131/72; PULSE 74; RESP 18; TEMP 36.3; O2SAT 95; BMI 31.7
[2023-09-23] VITALS (8 sets, daily range): BP systolic 109–142; BP diastolic 56–92; PULSE 63–98; RESP 10–16; TEMP 36.1–36.5; O2SAT 95–100
[2023-09-23 11:45] LABS: Basophils Percent Auto 0.2 % (0.2-2.0); Eosinophils Absolute Auto 0.4 10^3/uL (0.0-0.7); Eosinophils Percent Auto 4.4 % (0.9-7.0); Hematocrit 30.9 % (42.0-54.0); Hemoglobin 9.8 g/dL (14.0-18.0); Immature Granulocytes Abs Auto 0.02 10^3/uL (0.00-0.03); Immature Granulocytes Pct Auto 0.2 % (0.0-0.5); Lymphocytes Absolute Auto 1.2 10^3/uL (1.2-3.8); Mean Corpuscular HGB Conc 31.7 g/dL (29.9-35.2); Mean Corpuscular Hemoglobin 35.8 pg (25.9-34.0); Mean Corpuscular Volume 112.8 fL (80.0-94.0); Mean Platelet Volume 9.4 fL (9.5-13.5); Monocytes Absolute Auto 0.5 10^3/uL (0.3-0.8); Monocytes Percent Auto 5.8 % (1.7-12.0); Neutrophils Absolute Auto 6.4 10^3/uL (1.4-6.5); Neutrophils Percent Auto 75.4 % (43.0-75.0); Platelet Count 153 10^3/uL (150-450); Red Blood Count 2.74 10^6/uL (4.70-6.10); Red Cell Distribution Width 16.2 % (11.0-15.0); White Blood Count 8.6 10^3/uL (4.0-11.0)
[2023-09-23 11:54] LABS: Anion Gap 11.5; BUN Creatinine Ratio 14.9; Carbon Dioxide 25.8 mmol/L (21.0-32.0); Chloride 108 mmol/L (98-107); Estimated GFR (African America 46 (>=60); Estimated GFR (Non-African Ame 38 (>=60); Glucose 149 mg/dL (74-106); Potassium 4.3 mmol/L (3.5-5.1); Sodium 141 mmol/L (136-145)
[2023-09-23 11:54] LABS: Glucometer 146 mg/dL (74-106)
[2023-09-23] MEDS: LACTATED RINGER'S SOLUTION 1,000 ML 50 ML IV (12:17)
[2023-09-23] MEDS: CEFTRIAXONE 1,000 MG in 0.9 % SODIUM CHLORIDE 50 ML 100 MG IV (12:26)
[2023-09-23] MEDS: IOHEXOL 240 MG/ML - 10 ML VIAL INJ (13:00)
[2023-09-23] MEDS: ONABOTULINUMTOXINA 100 UNIT VIAL INJ (13:10)
[2023-09-23] MEDS: 0.9 % SODIUM CHLORIDE 10 ML INJ (13:10)
--- NOTE | 2023-09-23 13:55 | P.URON_ITS ---
Urology Surgery Operative Note Operative Note Procedure Date: 09/23/23 Time Out Performed: yes Pre-op Diagnosis: 1. Right ureteral stricture with hydronephrosis 2. Chronic right ureteral stent 3. Chronic suprapubic tube for noncompliant bladder 4. Overactive bladder Post-op Diagnosis: same as pre-op Procedures performed: 1. Cystoscopy, right retrograde pyelogram, ureteral stent exchange 2. Intravesical injection of botulinum toxin 100 units 3. Suprapubic tube exchange Anesthesia: General-LMA (Dr. Little) Primary Surgeon: Vesna Cortez Complications: none Estimated blood loss (mL): 0 Findings: -Non-obstructing prostatic urethra. Elevated, fixed bladder neck. Extremely small capacity bladder with multiple diverticuli, 3+ trabeculations -BL UO widely patulous, indwelling right stent in appropriate position, not encrusted. - R RPG Mod right hydroureter down to distal ureter ~ 1-2 cm of stricture about 1 cm proximal to UO. Unable for significant contrast to pass into renal pelvis. Reflux into left collecting system with contrast injected into right UO. - 100 units Botox injected throughout, difficult to reach dome due to fixed bladder neck, very small bladder area to inject. - New 18 Fr SPT silicone catheter placed. Specimens: none Drains: 18Fr silicone with 10 cc in balloon, 7Fr x 22-30 cm JJ right ureteral stent Indications for Procedures: 78 year old male with complex urologic history including right distal ureteral stricture with hydronephrosis s/p dilation and chronic indwelling stent placed 03/05/23, non compliant small capacity bladder with chronic suprapubic catheter, and overactive bladder who presents for treatment. After discussion of risks/benefits of management options, he elected to proceed to the OR for 3 month routine right stent exchange, suprapubic tube exchange and Botox injections of 100 units. Risks were discussed including but not limited to bleeding, pain, infection, damage to surrounding structures, inability to treat the stone/place a stent, and need for additional procedures. The patient understands the stent is not permanent and needs to be removed or exchanged within 3 months to prevent encrustation, infection, invasive procedures and/or permanent renal damage. Additional risks of botox including fatigue, rare risk of neurologic problems. Detailed description of Procedure: After informed consent was obtained, the patient was brought to the operating room and transferred onto the operating table in supine position. Sequential compression devices were placed on bilateral lower extremities. The patient received the appropriate dose of preoperative IV antibiotics (Ceftriaxone based on cultures) and general anesthesia LMA was induced. They were positioned in modified dorsolithotomy with the appropriate pressure points padded, prepped, and draped in the usual sterile fashion for this procedure. An operative safety timeout was performed confirming the patient's identity, laterality and procedure, and all present agreed to proceed. A 22 Filipino rigid cystoscope with 30 degree lens was inserted into the patient's urethra and bladder with mild difficulty due to elevated, fixed bladder neck. A full cystoscopy was performed with findings as above. There were no bladder tumors, lesions, stones. Bilateral ureteral orifices were orthotopic and patent, widely patulous. I turned my attention to the right ureteral orifice and brought the indwelling stent to the meatus. A Sensorwire was inserted into the stent up to the kidney confirmed on fluoroscopy and the stent was removed without difficulty. A 6Fr open ended catheter was inserted next to the wire and dilute contrast was injected for retrograde pyelogram with findings as above. The catheter was removed. A 7Fr x 22-30cm JJ variable length ureteral stent was advanced over the wire, noting adequate curl in the renal pelvis and bladder on fluoroscopic and direct visualization. Next 100 units of Botox were reconstituted in 10 ml of injectable saline. A flexible needle was used to inject botox into the detrusor at a 2 mm depth, 1 cc per injection site. This was delivered throughout the bladder, taking care to avoid the UOs and blood vessels. Unable to reach anterior bladder fully due to fixed bladder neck. Overall there was limited space for injection given extremely small size of bladder (capacity ~ 30 cc). The bladder was irrigated until clear and inspected one final time to ensure adequate position of stent and no undue trauma to the bladder was done. Adequate hemostasis by the end of the case. The prior suprapubic tube was removed and a new 18Fr silicone catheter was inserted into the bladder, return of fluid, 10 cc in balloon, placed to grav ity drainage. The cystoscope was reinserted to view SPT in appropriate position. The bladder was drained and cystoscope was removed. The patient tolerated the procedure well without complication. The patient was awakened from anesthesia and sent to the PACU in stable condition. Plan: Discharge home. Follow up every 3 weeks for routine SPT exchange. Follow up in 4 months to discuss ight stent exchange in 4 months given good quality of existing stent, consider repeat botox at that time pending clinical results. Other Provider present: No Post Operative care instructions: See discharge instructions Urinary Catheter Management Urinary Catheter Management Suprapubic: Cath placed during this visit: yes Urethral indwelling: Yes Reason for continuing: other continuation reason (non compliant bladder, hydronephrosis) Insertion date: 09/23/23
== END 2023-09-23 14:35 | disposition home or self-care (01) ==
PROVIDERS: PCP Family Medicine; Visit Provider Urology
PROC: (CPT 51705; principal; 2023-09-23 12:30)
DX: N13.1 Hydronephrosis with ureteral stricture, not elsewhere classified (principal); N32.81 Overactive bladder; N31.9 Neuromuscular dysfunction of bladder, unspecified; N32.3 Diverticulum of bladder; N32.89 Other specified disorders of bladder; N40.0 Benign prostatic hyperplasia without lower urinary tract symptoms; E11.9 Type 2 diabetes mellitus without complications; E78.5 Hyperlipidemia, unspecified; I10 Essential (primary) hypertension; Z85.46 Personal history of malignant neoplasm of prostate; Z87.442 Personal history of urinary calculi; Z87.891 Personal history of nicotine dependence; Z79.84 Long term (current) use of oral hypoglycemic drugs; Z79.4 Long term (current) use of insulin; Z79.82 Long term (current) use of aspirin; Z79.899 Other long term (current) drug therapy; M06.9 Rheumatoid arthritis, unspecified
CPT/HCPCS: 51705; 52287; 52332; 36415; 74420; 80048; 82948; 85025; C1874; J0131; J0585; J0696; J2405; J2704; J3010; Q9966

== ENCOUNTER 2024-01-08 16:20 | Outpatient (OUT) | payer MEDICARE, SELFPAY ==
[2024-01-08 16:54] LABS: Basophils Percent Auto 0.1 % (0.2-2.0); Eosinophils Absolute Auto 0.4 10^3/uL (0.0-0.7); Eosinophils Percent Auto 5.5 % (0.9-7.0); Hemoglobin 9.5 g/dL (14.0-18.0); Immature Granulocytes Abs Auto 0.02 10^3/uL (0.00-0.03); Immature Granulocytes Pct Auto 0.3 % (0.0-0.5); Lymphocytes Absolute Auto 1.5 10^3/uL (1.2-3.8); Lymphocytes Percent Auto 18.5 % (20.5-60.0); Mean Corpuscular HGB Conc 31.7 g/dL (29.9-35.2); Mean Corpuscular Hemoglobin 35.1 pg (25.9-34.0); Mean Corpuscular Volume 110.7 fL (80.0-94.0); Mean Platelet Volume 9.5 fL (9.5-13.5); Monocytes Absolute Auto 0.6 10^3/uL (0.3-0.8); Monocytes Percent Auto 7.5 % (1.7-12.0); Neutrophils Absolute Auto 5.3 10^3/uL (1.4-6.5); Neutrophils Percent Auto 68.1 % (43.0-75.0); Platelet Count 166 10^3/uL (150-450); White Blood Count 7.8 10^3/uL (4.0-11.0)
[2024-01-08 17:21] LABS: Red Blood Count 2.71 10^6/uL (4.70-6.10)
[2024-01-08 18:35] LABS: Alanine Aminotransferase 22 U/L (16-63); Albumin Globulin Ratio 0.8; Albumin Level 3.3 g/dL (3.4-5.0); Alkaline Phosphatase 113 U/L (46-116); Anion Gap 13.2; Aspartate Amino Transferase 14 U/L (15-37); BUN Creatinine Ratio 13.9; Bilirubin Total 0.3 mg/dL (0.2-1.0); Calcium 9.6 mg/dL (8.5-10.1); Carbon Dioxide 25.7 mmol/L (21.0-32.0); Chloride 105 mmol/L (98-107); Estimated GFR (African America 31 (>=60); Estimated GFR (Non-African Ame 26 (>=60); Globulin 4.1 g/dL; Glucose 56 mg/dL (74-106); Lactate Dehydrogenase 706 U/L (85-227); Potassium 3.9 mmol/L (3.5-5.1); Sodium 140 mmol/L (136-145); Total Protein 7.4 g/dL (6.4-8.2)
[2024-01-10 09:07] LABS: Immunoglobulin A, Qn, Serum 181 mg/dL (61-437); Immunoglobulin G, Qn, Serum 1001 mg/dL (603-1613); Immunoglobulin M, Qn, Serum 61 mg/dL (15-143)
[2024-01-12 13:08] LABS: Albumin 3.3 g/dL (2.9-4.4); Alpha-1-Globulin 0.4 g/dL (0.0-0.4); Alpha-2-Globulin 1.1 g/dL (0.4-1.0); Gamma Globulin 0.9 g/dL (0.4-1.8); Protein, Total 6.5 g/dL (6.0-8.5)
[2024-01-12 17:07] LABS: Free Kappa Lt Chains,S 45.2 mg/L (3.3-19.4); Free Lambda Lt Chains,S 39.4 mg/L (5.7-26.3); Kappa/Lambda Ratio,S 1.15 (0.26-1.65)
[2024-01-13 15:11] LABS: Albumin, U 37.6 % (.); Alpha-1-Globulin, U 5.2 % (.); Alpha-2-Globulin, U 16.6 % (.); Beta Globulin, U 23.9 % (.); Gamma Globulin, U 16.7 % (.); Immunofixation, Urine Comment: (.); M-Spike, % Not Observed % (Not Observed); Protein,Total,Urine 135.4 mg/dL (Not Estab.)
== END 2024-01-08 16:21 | disposition home or self-care (01) ==
PROVIDERS: PCP Family Medicine
DX: N28.89 Other specified disorders of kidney and ureter (principal); C90.00 Multiple myeloma not having achieved remission
CPT/HCPCS: 36415; 80053; 82784; 83521; 83615; 84155; 84156; 84165; 84166; 85025; 86335

== ENCOUNTER 2024-02-01 10:01 | Outpatient (OUT) | payer MEDICARE, SELFPAY ==
--- NOTE | 2024-02-01 10:08 | ECG_ITS ---
The [facility] Test Date: 2024-02-01 Pat Name: PATSY CUNNINGHAM Department: Room: - Gender: Male [employer] Helper: : 1945 Requested By: Order Number: [id number] Reading MD: SIERRA SILVA Measurements Intervals [place] Rate: 67 P: 19 TN: 196 QRS: 15 QRSD: 114 T: 68 QT: 422 QTc: 448 Interpretive Statements SINUS RHYTHM MODERATE INTRAVENTRICULAR CONDUCTION DELAY [110+ ms QRS DURATION] NONSPECIFIC T-WAVE ABNORMALITY Compared to ECG 06/01/2023 08:48:05 No significant changes Electronically Signed On 02-01-2024 22:50:30 EDT by SIERRA SILVA
[2024-02-01 11:16] LABS: Basophils Percent Auto 0.2 % (0.2-2.0); Eosinophils Absolute Auto 0.6 10^3/uL (0.0-0.7); Eosinophils Percent Auto 6.7 % (0.9-7.0); Hematocrit 25.7 % (42.0-54.0); Hemoglobin 8.2 g/dL (14.0-18.0); Immature Granulocytes Abs Auto 0.04 10^3/uL (0.00-0.03); Immature Granulocytes Pct Auto 0.5 % (0.0-0.5); Lymphocytes Absolute Auto 1.2 10^3/uL (1.2-3.8); Lymphocytes Percent Auto 13.1 % (20.5-60.0); Mean Corpuscular HGB Conc 31.9 g/dL (29.9-35.2); Mean Corpuscular Hemoglobin 35.5 pg (25.9-34.0); Mean Corpuscular Volume 111.3 fL (80.0-94.0); Mean Platelet Volume 9.6 fL (9.5-13.5); Monocytes Absolute Auto 0.6 10^3/uL (0.3-0.8); Monocytes Percent Auto 6.5 % (1.7-12.0); Neutrophils Absolute Auto 6.4 10^3/uL (1.4-6.5); Platelet Count 187 10^3/uL (150-450); Red Blood Count 2.31 10^6/uL (4.70-6.10); Red Cell Distribution Width 15.4 % (11.0-15.0); White Blood Count 8.8 10^3/uL (4.0-11.0)
[2024-02-01 11:32] LABS: Anion Gap 13.8; BUN Creatinine Ratio 10.4; Calcium 8.5 mg/dL (8.5-10.1); Carbon Dioxide 23.7 mmol/L (21.0-32.0); Chloride 105 mmol/L (98-107); Estimated GFR (African America 26 (>=60); Estimated GFR (Non-African Ame 21 (>=60); Glucose 122 mg/dL (74-106); Potassium 4.5 mmol/L (3.5-5.1); Sodium 138 mmol/L (136-145)
[2024-02-01 11:37] LABS: INR 1.01; Partial Thromboplastin Time 28.8 sec (22.3-36.2); Prothrombin Time 10.7 sec (9.0-11.6)
[2024-02-01 14:14] LABS: Bilirubin Urine NEGATIVE (NEGATIVE); Blood Urine LARGE (NEGATIVE); Clarity Urine CLEAR (CLEAR); Color Urine DK. YELLOW (YELLOW); Glucose Urine UA NEGATIVE (NEGATIVE); Ketones Urine NEGATIVE (NEGATIVE); Leukocyte Esterase Urine MODERATE (NEGATIVE); Nitrite Urine NEGATIVE (NEGATIVE); Protein Urine 30 mg/dL (NEG/TRACE); Urobilinogen Urine 0.2 EU/dL (0.2-1.0)
[2024-02-01 14:16] LABS: Urine Microscopic Indicated YES
[2024-02-01 14:17] LABS: Bacteria Urine LARGE #/HPF (NONE SEEN); Mucus Urine NONE SEEN (NONE SEEN); RBC Urine 50-75 #/HPF (0-2); WBC Urine >100 #/HPF (NONE SEEN)
[2024-02-01 14:18] LABS: Squamous Epithelial Cell Urine FEW #/LPF (NONE/RARE)
== END 2024-02-01 10:02 | disposition home or self-care (01) ==
LOC: PST 10:01
PROVIDERS: PCP Family Medicine; Visit Provider Urology
DX: Z01.810 Encounter for preprocedural cardiovascular examination (principal); Z01.812 Encounter for preprocedural laboratory examination; N13.30 Unspecified hydronephrosis; N31.9 Neuromuscular dysfunction of bladder, unspecified; R39.14 Feeling of incomplete bladder emptying; N39.0 Urinary tract infection, site not specified
CPT/HCPCS: 80048; 81001; 85025; 85610; 85730; 87086; 87106; 87150; 87186; 93005

== ENCOUNTER 2024-02-03 12:31 | Day surgery (SDC) | payer MEDICARE, SELFPAY ==
[2024-02-01 10:19] VITALS: BP 122/74; PULSE 66; TEMP 36.3; O2SAT 98; BMI 30.7
[2024-02-03] VITALS (15 sets, daily range): BP systolic 141–183; BP diastolic 64–88; PULSE 58–95; TEMP 36.3–36.4; O2SAT 93–99; BMI 30.7
[2024-02-03 13:03] LABS: Glucometer 174 mg/dL (74-106)
[2024-02-03] MEDS: LACTATED RINGER'S SOLUTION 1,000 ML 50 ML IV (13:08)
[2024-02-03] MEDS: CIPROFLOXACIN IN 5 % DEXTROSE 400 MG/200 ML PIGGYBACK 200 MG IV (15:06)
[2024-02-03] MEDS: IOHEXOL 240 MG/ML - 10 ML VIAL INJ (16:02)
[2024-02-03] MEDS: FLUCONAZOLE IN NACL,ISO-OSM 200 MG/100 ML PIGGYBACK 100 MG IV (16:03)
--- NOTE | 2024-02-03 16:22 | XR_ITS ---
The [address] [address] Patient Name: PATSY CUNNINGHAM MRN: [id number] date: 1945 Sex: M Assigned Patient Location: [facility] Current Patient Location: Accession/Order Number: [id number] Exam Date: 02/03/2024 15:15 Report Date: 02/05/2024 05:07 At the request of: ORQUIDEA TORRES Procedure: XR urethrogram retrograde EXAM: XR urethrogram retrograde HISTORY: Right retrograde COMPARISON: None. TECHNIQUE: Intraprocedural spot fluoroscopic images. FINDINGS: 2. Intraprocedural spot fluoroscopic images demonstrate guidewire within right ureter with dilation of the ureter and upper collecting system. Subsequent image demonstrates a right ureteral stent in place. XR/XR urethrogram retrograde IMPRESSION: 1. Right ureteral stent placement. Electronically authenticated by: MICK LUO Date: 02/05/2024 05:07
--- NOTE | 2024-02-03 16:22 | PM.URSON ---
Urology Surgery Operative Note Operative Note Procedure Date: 02/03/24 Time Out Performed: yes Pre-op Diagnosis: 1. Right ureteral stricture with hydronephrosis 2. Chronic right ureteral stent 3. Chronic suprapubic tube for noncompliant bladder Post-op Diagnosis: same as pre-op Procedures performed: 1. Cystoscopy, right retrograde pyelogram, ureteral stent exchange 2. Suprapubic tube exchange Anesthesia: General-LMA Primary Surgeon: Vesna Cortez Complications: none Findings: -Non-obstructing prostatic urethra. Elevated, fixed bladder neck. Extremely small capacity bladder, irregular shape with multiple diverticuli, 3+ trabeculations -BL UO widely patulous, indwelling right stent in appropriate position, mildly encrusted. - R RPG Mod right hydroureter down to distal ureter ~ 2 cm from UO. Reflux into left collecting system with contrast injected into right UO. - New 18 Fr SPT silicone catheter placed. Specimens: none Drains: 18Fr silicone with 10 cc in balloon, 7Fr x 22-32 cm JJ right ureteral stent Indications for Procedures: 78 year old male with complex urologic history including right distal ureteral stricture with hydronephrosis s/p dilation and chronic indwelling stent placed 03/05/23, non compliant small capacity bladder with chronic suprapubic catheter who presents for stent and SPT exchange. After discussion of risks/benefits of management options, he elected to proceed to the OR for 4 month routine right stent exchange, suprapubic tube exchange. Risks were discussed including but not limited to bleeding, pain, infection, damage to surrounding structures, inability to treat the stone/place a stent, and need for additional procedures. The patient understands the stent is not permanent and needs to be removed or exchanged within 3 months to prevent encrustation, infection, invasive procedures and/or permanent renal damage. Detailed description of Procedure: After informed consent was obtained, the patient was brought to the operating room and transferred onto the operating table in supine position. Sequential compression devices were placed on bilateral lower extremities. The patient received the appropriate dose of preoperative IV antibiotics and general anesthesia LMA was induced. They were positioned in modified dorsolithotomy with the appropriate pressure points padded, prepped, and draped in the usual sterile fashion for this procedure. An operative safety timeout was performed confirming the patient's identity, laterality and procedure, and all present agreed to proceed. A 22 Portuguese rigid cystoscope with 30 degree lens was inserted into the patient's urethra and bladder with mild difficulty due to elevated, fixed bladder neck. A full cystoscopy was performed with findings as above. There were no bladder tumors, lesions, stones. Bilateral ureteral orifices were orthotopic and patent, widely patulous. I turned my attention to the right ureteral orifice and brought the indwelling stent to the meatus. A Sensorwire was inserted into the stent up to the kidney confirmed on fluoroscopy and the stent was removed without difficulty. A 6Fr open ended catheter was inserted next to the wire and dilute contrast was injected for retrograde pyelogram with findings as above. The catheter was removed. A 7Fr x 22-32cm JJ variable length ureteral stent was advanced over the wire, noting adequate curl in the renal pelvis and bladder on fluoroscopic and direct visualization. The bladder was filled and the prior suprapubic tube was removed. A new 18Fr silicone catheter was inserted into the bladder, return of fluid, 10 cc in balloon, placed to gravity drainage. The cystoscope was reinserted to view SPT in appropriate position. The bladder was drained and cystoscope was removed. The patient tolerated the procedure well without complication. The patient was awakened from anesthesia and sent to the PACU in stable condition. Plan: Discharge home. Follow up every 3 weeks for routine SPT exchange. Follow up in 4 months for routine stent exchange. Would not go longer given mild encrustation of stent. Urinary Catheter Management Urinary Catheter Management Suprapubic: Cath placed during this visit: no
== END 2024-02-03 17:40 | disposition home or self-care (01) ==
PROVIDERS: PCP Family Medicine; Visit Provider Urology
PROC: (CPT 51705; principal; 2024-02-03 14:30)
DX: N13.1 Hydronephrosis with ureteral stricture, not elsewhere classified (principal); Z96.0 Presence of urogenital implants; E78.5 Hyperlipidemia, unspecified; I10 Essential (primary) hypertension; E11.40 Type 2 diabetes mellitus with diabetic neuropathy, unspecified; N40.0 Benign prostatic hyperplasia without lower urinary tract symptoms; K21.9 Gastro-esophageal reflux disease without esophagitis; C90.00 Multiple myeloma not having achieved remission; M06.9 Rheumatoid arthritis, unspecified; G47.33 Obstructive sleep apnea (adult) (pediatric)
CPT/HCPCS: 51705; 52332; 36415; 74420; 82948; J0744; J2405; J2704; J3010; Q9966

== ENCOUNTER 2024-05-23 09:56 | Outpatient (OUT) | payer MEDICARE, SELFPAY ==
[2024-05-23 11:24] LABS: INR 0.96; Partial Thromboplastin Time 28.8 sec (22.3-36.2); Prothrombin Time 10.2 sec (9.0-11.6)
[2024-05-23 11:42] LABS: Bilirubin Urine NEGATIVE (NEGATIVE); Blood Urine LARGE (NEGATIVE); Clarity Urine CLOUDY (CLEAR); Glucose Urine UA 100 mg/dL (NEGATIVE); Ketones Urine NEGATIVE (NEGATIVE); Leukocyte Esterase Urine MODERATE (NEGATIVE); Nitrite Urine POSITIVE (NEGATIVE); Protein Urine 100 mg/dL (NEG/TRACE); Specific Gravity Urine >=1.030 (1.005-1.025); Urobilinogen Urine 0.2 EU/dL (0.2-1.0)
[2024-05-23 11:46] LABS: Urine Microscopic Indicated YES
[2024-05-23 12:01] LABS: Color Urine YELLOW (YELLOW)
[2024-05-23 12:05] LABS: WBC Urine >100 #/HPF (NONE SEEN)
[2024-05-23 12:06] LABS: Bacteria Urine LARGE #/HPF (NONE SEEN)
[2024-05-23 12:08] LABS: Cast Seen? NONE SEEN #/LPF (NONE SEEN); Crystals Seen? None Seen #/HPF (None Seen); Mucus Urine TRACE (NONE SEEN); Squamous Epithelial Cell Urine FEW #/LPF (NONE/RARE); Urine Culture Indicated YES
== END 2024-05-23 09:57 | disposition home or self-care (01) ==
LOC: PST 09:58
PROVIDERS: PCP Family Medicine; Visit Provider Urology
DX: Z01.812 Encounter for preprocedural laboratory examination (principal); N13.5 Crossing vessel and stricture of ureter without hydronephrosis; N13.30 Unspecified hydronephrosis; N31.9 Neuromuscular dysfunction of bladder, unspecified
CPT/HCPCS: 36415; 80048; 81001; 85610; 85730; 87086

== ENCOUNTER 2024-06-01 11:21 | Day surgery (SDC) | payer MEDICARE, SELFPAY ==
[2024-05-23 10:53] VITALS: BP 130/69; PULSE 69; TEMP 36.2; O2SAT 98; BMI 30.5
[2024-06-01] VITALS (10 sets, daily range): BP systolic 127–173; BP diastolic 65–87; PULSE 66–80; TEMP 36.1–36.3; O2SAT 95–99; BMI 30.3
[2024-06-01 11:54] LABS: Glucometer 136 mg/dL (74-106)
[2024-06-01] MEDS: 0.9 % SODIUM CHLORIDE 500 ML 50 ML IV (11:57)
[2024-06-01] MEDS: CEFAZOLIN SODIUM 2 GM/50 ML D5W PREMIX IV (14:09)
[2024-06-01] MEDS: LEVOFLOXACIN IN DEXTROSE 5 % 500 MG/100 ML PREMIX 100 MG IV (14:47)
[2024-06-01] MEDS: IOHEXOL 240 MG/ML - 50 ML VIAL INJ (14:53)
--- NOTE | 2024-06-01 14:55 | XR_ITS ---
[address] [address] Patient Name: PATSY CUNNINGHAM MRN: [id number] date: 1945 Sex: M Assigned Patient Location: [facility] Current Patient Location: Accession/Order Number: [id number] Exam Date: 06/01/2024 14:15 Report Date: 06/02/2024 07:23 At the request of: ORQUIDEA TORRES Procedure: XR urethrogram retrograde EXAM: XR urethrogram retrograde HISTORY: Right stent change COMPARISON: None. TECHNIQUE: 7.52 mgy. 3 images FINDINGS: 3 images demonstrate placement of a right ureteral stent retrograde injection of iodinated contrast demonstrates no hydroureteronephrosis XR/XR urethrogram retrograde IMPRESSION: Placement of a right ureteral stent Electronically authenticated by: CHAD BURNETTE Date: 06/02/2024 07:23
[2024-06-01] MEDS: LIDOCAINE HCL 1% 100 MG/10 ML MDV INJ (14:58)
--- NOTE | 2024-06-01 15:14 | P.URON_ITS ---
Urology Surgery Operative Note Operative Note Procedure Date: 06/01/24 Time Out Performed: yes Pre-op Diagnosis: 1. Right ureteral stricture with hydronephrosis 2. Chronic right ureteral stent 3. Chronic suprapubic tube for noncompliant bladder 4. Prostate cancer on active surveillance Post-op Diagnosis: same as pre-op Procedures performed: 1. Cystoscopy, right retrograde pyelogram, ureteral stent exchange 2. Suprapubic tube exchange 3. Transperineal prostate needle biopsy 4. Transrectal ultrasound of prostate 5. Periprostatic nerve block Anesthesia: General-LMA (Dr. Colby) Primary Surgeon: Vesna Cortez Complications: none Estimated blood loss (mL): 0 Findings: Non-obstructing prostatic urethra. Elevated, fixed bladder neck. Extremely small capacity bladder, multiple diverticuli, inflammation near stent 3+ trabeculations -BL UO patulous, indwelling right stent in appropriate position, not encrusted. -R RPG Mild right hydroureteronephrosis to mid ureter (did not evaluate distally at risk of losing access) -New 14 Fr SPT silicone catheter placed (pt has less spasms with this gunn) -FLORIAN Benign, TRUS: no discrete hypoechoic lesions, transition zone with cysts, 16 cc prostate volume, SVs wnl, 10 biopsies obtain via perineum Specimens: 1. Right posterior medial (1 core from each below) 2. Right posterior lateral 3. Right base 4. Right anterior lateral 5. Right anterior medial 6. Left anterior medial 7. Left anterior lateral 8. Left base 9. Left posterior lateral 10. Left posterior medial Drains: 14Fr silicone with 10 cc in balloon, 7Fr x 22-32 cm JJ right ureteral stent Indications for Procedures: 79 year old male with complex urologic history including favorable intermediate risk prostate cancer diagnosed incidentally on TURP 11/2021 on active surveillance and right distal ureteral stricture with hydronephrosis s/p dilation and chronic indwelling stent placed 03/05/23, non compliant small ca pacity bladder with chronic suprapubic catheter who presents for routine stent and SPT exchange, transperineal confirmatory prostate biopsy. After discussion of risks/benefits of management options, he elected to proceed to the OR for above procedures. Risks were discussed including but not limited to bleeding, pain, infection, damage to surrounding structures, inability to treat the stone/place a stent, and need for additional procedures. The patient understands the stent is not permanent and needs to be removed or exchanged within 4 months to prevent encrustation, infection, invasive procedures and/or permanent renal damage. Risks of perineal ecchymosis and swelling discussed. Detailed description of Procedure: After informed consent was obtained, the patient was brought to the operating room and transferred onto the operating table in supine position. Sequential compression devices were placed on bilateral lower extremities. The patient received the appropriate dose of preoperative IV antibiotics and general anesthesia LMA was induced. They were positioned in modified dorsolithotomy with the appropriate pressure points padded, prepped, and draped in the usual sterile fashion for this procedure. An operative safety timeout was performed confirming the patient's identity, laterality and procedure, and all present agreed to pr oceed. A 22 Greek rigid cystoscope with 30 degree lens was inserted into the patient's urethra and bladder with mild difficulty due to elevated, fixed bladder neck. A full cystoscopy was performed with findings as above. There were no bladder tumors, lesions, stones. Bilateral ureteral orifices were orthotopic and patent, widely patulous. I turned my attention to the right ureteral orifice and brought the indwelling stent to the meatus. A Sensorwire was inserted into the stent up to the kidney confirmed on fluoroscopy and the stent was removed without difficulty. A 6Fr open ended catheter was inserted next to the wire and dilute contrast was injected for retrograde pyelogram with findings as above. The catheter was removed. A 7Fr x 22-32cm JJ variable length ureteral stent was advanced over the wire, noting adequate curl in the renal pelvis and bladder on fluoroscopic and direct visualization. The bladder was filled and the prior suprapubic tube was removed. A new 14Fr silicone catheter was inserted into the bladder, return of fluid, 10 cc in balloon, placed to gravity drainage. SPT in appropriate position confirmed on cystoscopy. The bladder was drained and cystoscope was removed. The scrotum was secured out of the perineum with tape. A digital rectal exam was performed noting findings as above. A well lubricated biplane transrectal ultrasound probe was inserted into the rectum and the prostate was aligned. The gland was visualized fully in axial and sagittal views to allow for identification of anatomy, volume and location of the urethra as noted in findings. The Precision Point device was placed on the ultrasound probe for transperineal approach. The skin followed by periprostatic local anesthetic was delivered for postop pain control. One core needle biopsy was obtained in a systematic fashion from 10 regions of the prostate including the base, medial and lateral aspects of the anterior and posterior prostate of the right and left lobes. The ultrasound probe was removed and the perineum was cleaned, adequate hemostasis was achieved, and covered with fluffs and scrotal support. The patient tolerated the procedure well without complication. The patient was awakened from anesthesia and sent to the PACU in stable condition. Plan: Discharge home. Follow up in 1-2 wks for pathology review. Cont office visit every 3 weeks for routine SPT exchange. Follow up in 4-5 months for routine stent exchange.
[2024-06-01] MEDS: ACETAMINOPHEN 325 MG TABLET 650 MG PO (15:38)
== END 2024-06-01 16:24 | disposition home or self-care (01) ==
PROVIDERS: PCP Family Medicine; Visit Provider Urology
PROC: (CPT 51705; principal; 2024-06-01 12:30)
DX: N13.1 Hydronephrosis with ureteral stricture, not elsewhere classified (principal); C61 Malignant neoplasm of prostate; N32.89 Other specified disorders of bladder; Z46.6 Encounter for fitting and adjustment of urinary device; I10 Essential (primary) hypertension; Z79.4 Long term (current) use of insulin; Z80.42 Family history of malignant neoplasm of prostate; Z79.84 Long term (current) use of oral hypoglycemic drugs; G47.33 Obstructive sleep apnea (adult) (pediatric); E78.5 Hyperlipidemia, unspecified; E11.40 Type 2 diabetes mellitus with diabetic neuropathy, unspecified; K21.9 Gastro-esophageal reflux disease without esophagitis; N40.0 Benign prostatic hyperplasia without lower urinary tract symptoms; C90.00 Multiple myeloma not having achieved remission; M06.9 Rheumatoid arthritis, unspecified
CPT/HCPCS: 51705; 52332; 55700; 36415; 74420; 82948; J0690; J2405; J2704; J3010; Q9966

== ENCOUNTER 2024-07-20 13:17 | Inpatient (IN) | payer MEDICARE, SELFPAY ==
[2024-07-20] VITALS (26 sets, daily range): BP systolic 116–158; BP diastolic 63–83; PULSE 77–88; TEMP 36.7–36.8; O2SAT 96–99; BMI 27.8; BMI 30.1
[2024-07-20] MEDS: 0.9 % SODIUM CHLORIDE 500 ML IV (13:56)
--- NOTE | 2024-07-20 14:00 | ED.GENADUL1 ---
HPI HPI - General Adult General Chief complaint: Urogenital-Male Stated complaint: UTI COMPLAINTS Time Seen by Provider: 07/20/24 13:21 Source: patient Mode of arrival: walk-in Limitations: no limitations History of Present Illness HPI narrative: Patient presents to ED for evaluation of not feeling well and weakness with dizziness. Patient states when he feels like this he typically has a urinary tract infection. Patient has a suprapubic catheter and bilateral ureteral stents from chronic hydro. He was at his urologist office today and told them that he has been feeling dizzy and weak and like he may have a urinary infection. They gave him some water and he was still feeling dizzy and he was not draining very much urine into his catheter bag so they wanted him evaluated in the emergency room for possible UTI and worsening CKD. Patient states yesterday he was having some right sided abdominal pain but that has resolved. He said bowel movements have been normal but his urine output has decreased slightly. He has not had any fevers. He did have an episode of vomiting today. Alert and oriented no acute distress Related Data Home Medications ?Medication ?Instructions ?Recorded ?Confirmed Lactobacillus acidophilus 10 100 mmu cells PO DAILY 06/01/23 07/20/24 billion cell capsule (Probiotic) aspirin 81 mg capsule 81 mg PO DAILY 06/01/23 07/20/24 atorvastatin 20 mg tablet 20 mg PO QDAY 06/01/23 07/20/24 cholecalciferol (vitamin D3) 50 2,000 unit PO DAILY 06/01/23 07/20/24 mcg (2,000 unit) capsule docusate sodium 100 mg capsule 100 mg PO DAILY 06/01/23 07/20/24 (Stool Softener) famotidine 20 mg tablet 20 mg PO DAILY 06/01/23 07/20/24 insulin glargine 100 unit/mL (3 35 unit subcut QPM 06/01/23 07/20/24 mL) subcutaneous pen (Lantus Solostar U-100 Insulin) insulin lispro 100 unit/mL 1 sliding scale dose subcut TID 06/01/23 07/20/24 subcutaneous pen iron bis glycinate lashon 28 mg 1 cap PO DAILY 06/01/23 07/20/24 iron-vit C 60 mg-FA 400 mcg-B12 8mcg cap (Gentle Iron) multivitamin (Daily Multi-Vitamin 1 tab PO DAILY 06/01/23 07/20/24 tablet) oxybutynin chloride 10 mg 10 mg PO BID 06/01/23 07/20/24 tablet,extended release 24 hr darbepoetin raymond-albumin 25 mcg/mL mcg .Route 05/23/24 in albumin injection vitamin B complex 1 tab PO DAILY 05/23/24 07/20/24 Allergies Allergy/AdvReac Type Severity Reaction Status Date / Time lisinopril Allergy Cough Verified 07/20/24 13:29 [email or web address] (From Myrbetriq) Allergy Rash Verified 07/20/24 13:29 gabapentin AdvReac not Verified 07/20/24 13:29 effective Opioid HPI Opioid Management Most Recent Opioid Data: Last Pain Scale 3 06/01/24 16:16 06/01/24 Review of Systems ROS Status of ROS 10 or more systems reviewed and unremarkable except as noted in history and below [facility] Medical History (Updated 07/20/24 @ 15:12 by Jocelyne Diaz DO) Dizziness ?R42 - Dizziness and giddiness (ICD-10) Suprapubic catheter ?Z93.59 - Other cystostomy status (ICD-10) Overactive bladder ?N32.81 - Overactive bladder (ICD-10) Ureteral stricture ?N13.5 - Crossing vessel and stricture of ureter without hydronephrosis (ICD-10) Hydroureteronephrosis ?N13.30 - Unspecified hydronephrosis (ICD-10) Prostate cancer ?C61 - Malignant neoplasm of prostate (ICD-10) Hydroureter ?N13.4 - Hydroureter (ICD-10) Hydronephrosis ?N13.30 - Unspecified hydronephrosis (ICD-10) Benign prostatic hyperplasia ?N40.0 - Benign prostatic hyperplasia without lower urinary tract symptoms (ICD-10) Arthritis ?M19.90 - Unspecified osteoarthritis, unspecified site (ICD-10) Rheumatoid arthritis ?M06.9 - Rheumatoid arthritis, unspecified (ICD-10) Neuropathy ?G62.9 - Polyneuropathy, unspecified (ICD-10) Sleep apnea ?G47.30 - Sleep apnea, unspecified (ICD-10) Nausea ?R11.0 - Nausea (ICD-10) Weakness ?R53.1 - Weakness (ICD-10) Multiple myeloma ?C90.00 - Multiple myeloma not having achieved remission (ICD-10) Sepsis ?A41.9 - Sepsis, unspecified organism (ICD-10) High cholesterol ?E78.00 - Pure hypercholesterolemia, unspecified (ICD-10) S/P extracorporeal shock wave therapy ?Z98.890 - Other specified postprocedural states (ICD-10) Urinary retention ?R33.9 - Retention of urine, unspecified (ICD-10) Dyspnea on exertion ?R06.09 - Other forms of dyspnea (ICD-10) Anemia ?D64.9 - Anemia, unspecified (ICD-10) History of blood transfusion ?Z92.89 - Personal history of other medical treatment (ICD-10) Urinary tract infection ?N39.0 - Urinary tract infection, site not specified (ICD-10) Kidney stones ?N20.0 - Calculus of kidney (ICD-10) Heartburn ?R12 - Heartburn (ICD-10) Hypertension ?I10 - Essential (primary) hypertension (ICD-10) Diabetes ?E11.9 - Type 2 diabetes mellitus without complications (ICD-10) Delayed recovery from anesthesia Surgical History H/O cystoscopy (02/03/24) ?Z98.890 - Other specified postprocedural states (ICD-10) H/O cystoscopy (06/10/23) ?Z98.890 - Other specified postprocedural states (ICD-10) S/P TURP ?Z90.79 - Acquired absence of other genital organ(s) (ICD-10) H/O foot surgery ?Z98.890 - Other specified postprocedural states (ICD-10) History of dental surgery ?Z92.89 - Personal history of other medical treatment (ICD-10) History of throat surgery ?Z98.890 - Other specified postprocedural states (ICD-10) H/O blepharoplasty ?Z98.890 - Other specified postprocedural states (ICD-10) S/P ureteral stent placement ?Z96.0 - Presence of urogenital implants (ICD-10) Stem cells transplant status ?Z94.84 - Stem cells transplant status (ICD-10) 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) History of suprapubic catheter (03/05/23) ?Z98.890 - Other specified postprocedural states (ICD-10) Status post dilation of urethral narrowing ?Z98.890 - Other specified postprocedural states (ICD-10) H/O cataract extraction ?Z98.49 - Cataract extraction status, unspecified eye (ICD-10) H/O cystoscopy (12/10/22) ?Z98.890 - Other specified postprocedural states (ICD-10) Family History (Updated 06/01/23 @ 09:[address] Horn NP) Other Family history of cancer Family history of stroke Heart disease Social History (Updated 06/10/23 @ 12:07 by Yoselin Diaz) Within the past year, how often did you have a drink containing alcohol: never Score interpretation: A score less than 4 is consistent with normal alcohol consumption. Smoking status: Former smoker Non-prescribed substance use: denies use Highest level of school completed/degree received: high school graduate Little interest or pleasure in doing things: not at all Feeling down, depressed, or hopeless: not at all Exam Narrative Exam Narrative: Time Seen: [] Vital Signs: [Per nurse's notes.] General: [Alert] generally weak Skin: [Warm, dry, no rash.] Head: [Normocephalic, atraumatic.] Neck: [Supple, trachea midline.] Eye: [Pupils are equal, round and reactive to light, extraocular movements are intact, normal conjunctiva.] Ears, nose, mouth and throat: oral mucosa moist. Cardiovascular: [Regular rate and rhythm, no murmur.] Respiratory: [Lungs are clear to auscultation, respirations are non-labored, breath sounds are equal.] Chest wall: [No tenderness, no deformity.] Gastrointestinal: [Soft, nontender, non distended, normal bowel sounds.] MSK: 4 out of 5 muscle strength x 4 extremities no calf pain or edema Suprapubic catheter in place. Small area of ecchymosis on his abdomen from insulin shots. No severe abdominal pain with palpation. Area surrounding the suprapubic catheter does not show any signs of cellulitis. Catheter is draining a very small amount of cloudy urine. Psychiatric: [Cooperative, appropriate mood & affect.] Neurological: [Alert and oriented to person, place, time, and situation, no focal neurological deficit observed.] Constitutional Vital Signs, click to edit/add: Last Vital Signs Temp 98.3 F 07/20/24 13:24 Pulse 88 07/20/24 13:24 Resp 20 07/20/24 13:24 BP 130/82 07/20/24 13:24 Pulse Ox 99 07/20/24 13:24 O2 Del Method Room Air 07/20/24 13:24 Course Vital Signs Vital signs: Vital Signs Temperature 98.3 F 07/20/24 13:24 Pulse Rate 88 07/20/24 13:24 Respiratory Rate 20 07/20/24 13:24 Blood Pressure 130/82 07/20/24 13:24 Pulse Oximetry 99 07/20/24 13:24 Oxygen Delivery Method Room Air 07/20/24 13:24 Temperature 98.3 F 07/20/24 13:24 Pulse Rate 88 07/20/24 13:24 Respiratory Rate 20 07/20/24 13:24 Blood Pressure 130/82 07/20/24 13:24 Pulse Oximetry 99 07/20/24 13:24 Oxygen Delivery Method Room Air 07/20/24 13:24 Medical Decision Making MDM Narrative Medical decision making narrative: Patient's labs show an increased white blood cell count of 21. Increased creatinine of 4.8. His previous creatinine was 2.3. Patient has an increased lactic acid as well. I spoke to his urologist, Dr. Lane. She states usually he has a yeast infection as well as the urinary tract infection. She was agreeable with Levaquin and Diflucan for treatment. She also requested a noncontrast CT to be completed to ensure there is no obstruction of his stents. Patient is alert and oriented and stable. He is not hypotensive not tachycardic. I spoke to Dr. Hobbs who will admit the patient here. Patient was given IV fluids and IV antibiotics. Patient is comfortable with care plan for admission Differential Diagnosis Differential Diagnosis: UTI, sepsis, RINA stent obstruction Medical Records Medical records reviewed: Yes I reviewed the patient's medical records Lab Data Lab results reviewed: Yes I reviewed the patient's lab results Labs: Lab Results 07/20/24 07/20/24 Range/Units 13:43 14:20 WBC 21.4 H (4.0-11.0) 10^3/uL RBC 2.91 L (4.70-6.10) 10^6/uL Hgb 10.2 L (14.0-18.0) g/dL Hct 31.3 L (42.0-54.0) % MCV 107.6 H (80.0-94.0) fL MCH 35.1 H (25.9-34.0) pg MCHC 32.6 (29.9-35.2) g/dL RDW 15.3 H (11.0-15.0) % Plt Count 202 (150-450) 10^3/uL MPV 9.8 (9.5-13.5) fL Seg Neuts % (Manual) 81.0 H (43.0-75.0) Band Neutrophils % 11.0 H (0-5) % Lymphocytes % (Manual) 3.0 L (20.5-60.0) % Monocytes % (Manual) 4.0 (1.7-12.0) % Eosinophils % (Manual) 1.0 (0.9-7.0) % Basophils % (Manual) 0.0 L (0.2-2.0) % Neutrophils # (Manual) 17.33 H (1.4-6.5) 10^3/uL Band Neutrophils # 2.4 H (0.0-0.3) 10^3/uL Lymphocytes # (Manual) 0.64 L (1.20-3.80) 10^3/uL Monocytes # (Manual) 0.85 H (0.30-0.80) 10^3/uL Eosinophils # (Manual) 0.21 (0.00-0.70) 10^3/uL Basophils # (Manual) 0.00 (0.00-0.10) 10^3/uL Poikilocytosis 1+ Tear Drop Cells 1+ Ovalocytes 1+ PT 12.4 H (9.0-11.6) sec INR 1.19 Sodium 131 L (136-145) mmol/L Potassium 5.1 (3.5-5.1) mmol/L Chloride 99 (98-107) mmol/L Carbon Dioxide 20.4 L (21.0-32.0) mmol/L Anion Gap 16.7 BUN 47.0 H (7.0-18.0) mg/dL Creatinine 4.79 H (0.70-1.30) mg/dL Est GFR ( Amer) 14 L (>=60 mL/min/1.73m^2) Est GFR (Non-Af Amer) 12 L (>=60 mL/min/1.73m^2) BUN/Creatinine Ratio 9.8 Glucose 206 H (74-106) mg/dL Lactate 2.4 H* (0.4-2.0) mmol/L Calcium 9.1 (8.5-10.1) mg/dL Total Bilirubin 0.8 (0.2-1.0) mg/dL AST 20 (15-37) U/L ALT 27 (16-63) U/L Alkaline Phosphatase 136 H (46-116) U/L Total Protein 6.9 (6.4-8.2) g/dL Albumin 2.9 L (3.4-5.0) g/dL Globulin 4.0 g/dL Albumin/Globulin Ratio 0.7 Urine Color Yellow (YELLOW) Urine Clarity Clear (CLEAR) Urine pH 6.0 (5.0-9.0) Ur Specific [place] 1.015 (1.005-1.025) Urine Protein >=300 A (NEG/TRACE) mg/dL Urine Glucose (UA) Negative (NEGATIVE) mg/dL Urine Ketones Negative (NEGATIVE) mg/dL Urine Occult Blood Large A (NEGATIVE) Urine Nitrite Negative (NEGATIVE) Urine Bilirubin Negative (NEGATIVE) Urine Urobilinogen 0.2 (0.2-1.0) EU/dL Ur Leukocyte Esterase Large A (NEGATIVE) Urine RBC 20-50 A (0-2) #/HPF Urine WBC >100 A (NONE SEEN) #/HPF Ur Squamous Epith Cells Few A (NONE/RARE) #/LPF Urine Bacteria Large A (NONE SEEN) #/HPF Urine Mucus None seen (NONE SEEN) Urine Yeast Seen A (NONE SEEN) Ur Culture Indicated? Yes Discharge Plan Discharge Chief Complaint: Urogenital-Male Clinical Impression: Urinary tract infection, Sepsis, Dehydration, Acute on chronic kidney failure Patient Disposition: Admitted As Inpatient Time of Disposition Decision: 15:12 Condition: Fair Prescriptions / Home Meds: No Action vitamin B complex Tablet 1 tab PO DAILY darbepoetin raymond-albumin 25 mcg/mL solution .Route atorvastatin 20 mg tablet 20 mg PO QDAY famotidine 20 mg tablet 20 mg PO DAILY insulin glargine [Lantus Solostar U-100 Insulin] 100 unit/mL (3 mL) insulin pen 35 unit SUBCUT QPM insulin lispro 100 unit/mL insulin pen 1 sliding scale dose SUBCUT TID oxybutynin chloride 10 mg tablet extended release 24hr 10 mg PO BID aspirin 81 mg capsule 81 mg PO DAILY multivitamin [Daily Multi-Vitamin] Tablet 1 tab PO DAILY docusate sodium [Stool Softener] 100 mg capsule 100 mg PO DAILY cholecalciferol (vitamin D3) 50 mcg (2,000 unit) capsule 2,000 unit PO DAILY Probiotic 10 billion cell capsule 100 mmu cells PO DAILY Gentle Iron 28 mg iron-60mg -400 mcg-8 mcg capsule 1 cap PO DAILY Print Language: Tuvaluan Referrals: HELEN OCHOA [Primary Care Provider] - 1 week
[2024-07-20 14:17] LABS: Hematocrit 31.3 % (42.0-54.0); Hemoglobin 10.2 g/dL (14.0-18.0); Mean Corpuscular HGB Conc 32.6 g/dL (29.9-35.2); Mean Corpuscular Hemoglobin 35.1 pg (25.9-34.0); Mean Corpuscular Volume 107.6 fL (80.0-94.0); Mean Platelet Volume 9.8 fL (9.5-13.5); Platelet Count 202 10^3/uL (150-450); Red Blood Count 2.91 10^6/uL (4.70-6.10); Red Cell Distribution Width 15.3 % (11.0-15.0); White Blood Count 21.4 10^3/uL (4.0-11.0)
[2024-07-20 14:30] LABS: Alanine Aminotransferase 27 U/L (16-63); Albumin Globulin Ratio 0.7; Albumin Level 2.9 g/dL (3.4-5.0); Alkaline Phosphatase 136 U/L (46-116); Anion Gap 16.7; Aspartate Amino Transferase 20 U/L (15-37); BUN Creatinine Ratio 9.8; Bilirubin Total 0.8 mg/dL (0.2-1.0); Calcium 9.1 mg/dL (8.5-10.1); Carbon Dioxide 20.4 mmol/L (21.0-32.0); Chloride 99 mmol/L (98-107); Estimated GFR (African America 14 (>=60 mL/min/1.73m^2); Estimated GFR (Non-African Ame 12 (>=60 mL/min/1.73m^2); Glucose 206 mg/dL (74-106); Potassium 5.1 mmol/L (3.5-5.1); Sodium 131 mmol/L (136-145); Total Protein 6.9 g/dL (6.4-8.2)
[2024-07-20 14:36] LABS: INR 1.19; Prothrombin Time 12.4 sec (9.0-11.6)
[2024-07-20 14:39] LABS: Bilirubin Urine NEGATIVE (NEGATIVE); Blood Urine LARGE (NEGATIVE); Clarity Urine CLEAR (CLEAR); Color Urine YELLOW (YELLOW); Glucose Urine UA NEGATIVE (NEGATIVE); Ketones Urine NEGATIVE (NEGATIVE); Leukocyte Esterase Urine LARGE (NEGATIVE); Nitrite Urine NEGATIVE (NEGATIVE); Protein Urine >=300 mg/dL (NEG/TRACE); Specific Gravity Urine 1.015 (1.005-1.025); Urobilinogen Urine 0.2 EU/dL (0.2-1.0)
[2024-07-20] MEDS: LEVOFLOXACIN IN DEXTROSE 5 % 750 MG/150 ML PREMIX 100 MG IV (14:41)
[2024-07-20 14:50] LABS: Band Neutrophils Absolute 2.4 10^3/uL (0.0-0.3); Eosinophils Absolute Manual 0.21 10^3/uL (0.00-0.70); Lactate/Lactic Acid 2.4 mmol/L (0.4-2.0); Lymphocytes Absolute Manual 0.64 10^3/uL (1.20-3.80); Monocytes Absolute Manual 0.85 10^3/uL (0.30-0.80); Segmented Neut Absolute Manual 17.33 10^3/uL (1.4-6.5)
[2024-07-20 14:51] LABS: Ovalocytes 1+; Poikilocytosis 1+; Tear Drop Cells 1+
[2024-07-20 14:54] LABS: Urine Microscopic Indicated YES
[2024-07-20 14:57] LABS: Bacteria Urine LARGE #/HPF (NONE SEEN); WBC Urine >100 #/HPF (NONE SEEN)
[2024-07-20 15:00] LABS: Mucus Urine NONE SEEN (NONE SEEN); RBC Urine 20-50 #/HPF (0-2); Squamous Epithelial Cell Urine FEW #/LPF (NONE/RARE)
[2024-07-20 15:02] LABS: Urine Culture Indicated YES
--- NOTE | 2024-07-20 15:05 | CT_ITS ---
[address] [address] Patient Name: PATSY CUNNINGHAM MRN: [id number] date: 1945 Sex: M Assigned Patient Location: ER Current Patient Location: ER Accession/Order Number: [id number] Exam Date: 07/20/2024 15:18 Report Date: 07/20/2024 15:47 At the request of: SUSHANT CABRERA Procedure: CT abdomen pelvis wo con CT ABDOMEN/PELVIS WITHOUT IV CONTRAST. INDICATION: RINA COMPARISON: 08/24/2021 TECHNIQUE: Contiguous axial images were obtained from the lung bases to the pelvic floor without intravenous or oral contrast. Coronal and sagittal reformations are provided. FINDINGS: LOWER LUNGS: Clear. LIVER/BILIARY TREE: No discrete lesion. No intrahepatic ductal dilatation. There are calcified granulomas GALLBLADDER: No significant gallbladder wall thickening. Cholelithiasis. CBD: Normal CBD. SPLEEN: Normal in size. There are calcified granulomas PANCREAS: No appreciable peripancreatic fluid. No pancreatic ductal dilatation. No discrete lesion. ADRENALS: Normal. KIDNEYS: Bilateral ureteral stents are in place. There is mild bilateral hydronephrosis. Left nephrolithiasis. STOMACH AND BOWEL: Stomach is unremarkable. No dilated bowel loops. No bowel wall thickening. APPENDIX: Not visualized. PERITONEAL CAVITY: No fluid. There is stranding surrounding the bladder. ABDOMINAL WALL: No subcutaneous stranding. No subcutaneous fluid collection. LYMPH NODES: No mesenteric or retroperitoneal lymphadenopathy by CT criteria. ABDOMINAL AORTA: No aneurysm. PELVIS: Decompressed bladder with suprapubic catheter. There is bladder wall thickening and inflammation. MUSCULOSKELETAL: No acute osseous abnormality. CT/CT abdomen pelvis wo con IMPRESSION: 1. Bilateral ureteral stents are in place. Mild bilateral hydronephrosis. 2. Findings are suggestive of cystitis. Electronically authenticated by: IONA HERNANDEZ Date: 07/20/2024 15:47
[2024-07-20] MEDS: FLUCONAZOLE IN NACL,ISO-OSM 200 MG/100 ML PREMIX 100 MG IV (15:12)
--- NOTE | 2024-07-20 16:06 | P.HP_ITS ---
HPI H&P: HPI History of Present Illness Chief complaint: UTI COMPLAINTS Narrative: 79-year-old male was sent to ED by her urologist office. He went for a regular follow-up and reported feeling generalized weakness, lightheadedness along with nausea/vomiting and decreased urinary output. Patient reports that he has been feeling unwell with generalized weakness and lightheaded for 4 to 5 days. He started to become nauseous and threw up along with decreased urinary output for 1 to 2 days. He has a chronic suprapubic catheter in place and has bilateral ureteral stent for chronic hydronephrosis. He is unsure of fever or chills but he did not feel that he had a fever. He denies constipation or diarrhea. Workup in ER revealed leukocytosis with white count of 21,000 along with acute kidney injury with serum creatinine of 4.7. His baseline creatinine is about 2- 2.5. Patient started on IV fluids and IV Rocephin. He has history of recurrent UTI and has chronic hydronephrosis and suprapubic catheter and is at high risk of resistant organisms. He also has considerable acute kidney injury with creatinine almost double his baseline and is anticipated to require at least 2 nights of inpatient treatment with close monitoring of his urine output and serum creatinine while being treated with IV fluids. At the time of my evaluation, patient reported mild suprapubic discomfort. He also was feeling mild nauseous. He had no other complaints otherwise Opioid HPI Opioid Management Most Recent Pain and Opioid Data: Last Pain Scale 3 06/01/24 16:16 06/01/24 Review of Systems ROS Status of ROS 10 or more systems reviewed and unremark able except as noted in history and below [facility] Medical History (Updated 07/20/24 @ 16:13 by Shaikh Freddy MD) CKD stage 3b, GFR 30-44 ml/min ?N18.32 - Chronic kidney disease, stage 3b (ICD-10) Diabetes ?E11.9 - Type 2 diabetes mellitus without complications (ICD-10) Dizziness ?R42 - Dizziness and giddiness (ICD-10) Suprapubic catheter ?Z93.59 - Other cystostomy status (ICD-10) Overactive bladder ?N32.81 - Overactive bladder (ICD-10) Ureteral stricture ?N13.5 - Crossing vessel and stricture of ureter without hydronephrosis (ICD- 10) Hydroureteronephrosis ?N13.30 - Unspecified hydronephrosis (ICD-10) Prostate cancer ?C61 - Malignant neoplasm of prostate (ICD-10) Hydroureter ?N13.4 - Hydroureter (ICD-10) Hydronephrosis ?N13.30 - Unspecified hydronephrosis (ICD-10) Benign prostatic hyperplasia ?N40.0 - Benign prostatic hyperplasia without lower urinary tract symptoms (ICD-10) Arthritis ?M19.90 - Unspecified osteoarthritis, unspecified site (ICD-10) Rheumatoid arthritis ?M06.9 - Rheumatoid arthritis, unspecified (ICD-10) Neuropathy ?G62.9 - Polyneuropathy, unspecified (ICD-10) Sleep apnea ?G47.30 - Sleep apnea, unspecified (ICD-10) Nausea ?R11.0 - Nausea (ICD-10) Weakness ?R53.1 - Weakness (ICD-10) Multiple myeloma ?C90.00 - Multiple myeloma not having achieved remission (ICD-10) Sepsis ?A41.9 - Sepsis, unspecified organism (ICD-10) High cholesterol ?E78.00 - Pure hypercholesterolemia, unspecified (ICD-10) S/P extracorporeal shock wave therapy ?Z98.890 - Other specified postprocedural states (ICD-10) Urinary retention ?R33.9 - Retention of urine, unspecified (ICD-10) Dyspnea on exertion ?R06.09 - Other forms of dyspnea (ICD-10) Anemia ?D64.9 - Anemia, unspecified (ICD-10) History of blood transfusion ?Z92.89 - Personal history of other medical treatment (ICD-10) Urinary tract infection ?N39.0 - Urinary tract infection, site not specified (ICD-10) Kidney stones ?N20.0 - Calculus of kidney (ICD-10) Heartburn ?R12 - Heartburn (ICD-10) Hypertension ?I10 - Essential (primary) hypertension (ICD-10) Diabetes ?E11.9 - Type 2 diabetes mellitus without complications (ICD-10) Delayed recovery from anesthesia Surgical History H/O cystoscopy (02/03/24) ?Z98.890 - Other specified postprocedural states (ICD-10) H/O cystoscopy (06/10/23) ?Z98.890 - Other specified postprocedural states (ICD-10) S/P TURP ?Z90.79 - Acquired absence of other genital organ(s) (ICD-10) H/O foot surgery ?Z98.890 - Other specified postprocedural states (ICD-10) History of dental surgery ?Z92.89 - Personal history of other medical treatment (ICD-10) History of throat surgery ?Z98.890 - Other specified postprocedural states (ICD-10) H/O blepharoplasty ?Z98.890 - Other specified postprocedural states (ICD-10) S/P ureteral stent placement ?Z96.0 - Presence of urogenital implants (ICD-10) Stem cells transplant status ?Z94.84 - Stem cells transplant status (ICD-10) 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) History of suprapubic catheter (03/05/23) ?Z98.890 - Other specified postprocedural states (ICD-10) Status post dilation of urethral narrowing ?Z98.890 - Other specified postprocedural states (ICD-10) H/O cataract extraction ?Z98.49 - Cataract extraction status, unspecified eye (ICD-10) H/O cystoscopy (12/10/22) ?Z98.890 - Other specified postprocedural states (ICD-10) Family History (Updated 06/01/23 @ 09:[address] Horn NP) Other Family history of cancer Family history of stroke Heart disease Social History (Updated 06/10/23 @ 12:07 by Yoselin Diaz) Within the past year, how often did you have a drink containing alcohol: never Score interpretation: A score less than 4 is consistent with normal alcohol consumption. Smoking status: Former smoker Non-prescribed substance use: denies use Highest level of school completed/degree received: high school graduate Little interest or pleasure in doing things: not at all Feeling down, depressed, or hopeless: not at all Meds Home Medications and Allergies Home Medications ?Medication ?Instructions ?Recorded ?Confirmed ?Type Lactobacillus acidophilus 10 100 mmu cells PO DAILY 06/01/23 07/20/24 History billion cell capsule (Probiotic) aspirin 81 mg capsule 81 mg PO DAILY 06/01/23 07/20/24 History atorvastatin 20 mg tablet 20 mg PO QDAY 06/01/23 07/20/24 History cholecalciferol (vitamin D3) 50 2,000 unit PO DAILY 06/01/23 07/20/24 History mcg (2,000 unit) capsule docusate sodium 100 mg capsule 100 mg PO DAILY 06/01/23 07/20/24 History (Stool Softener) famotidine 20 mg tablet 20 mg PO DAILY 06/01/23 07/20/24 History insulin glargine 100 unit/mL (3 35 unit subcut QPM 06/01/23 07/20/24 History mL) subcutaneous pen (Lantus Solostar U-100 Insulin) insulin lispro 100 unit/mL 1 sliding scale dose subcut TID 06/01/23 07/20/24 History subcutaneous pen iron bis glycinate lashon 28 mg 1 cap PO DAILY 06/01/23 07/20/24 History iron-vit C 60 mg-FA 400 mcg-B12 8mcg cap (Gentle Iron) multivitamin (Daily Multi-Vitamin 1 tab PO DAILY 06/01/23 07/20/24 History tablet) oxybutynin chloride 10 mg 10 mg PO BID 06/01/23 07/20/24 History tablet,extended release 24 hr darbepoetin raymond-albumin 25 mcg/mL mcg .Route 05/23/24 History in albumin injection vitamin B complex 1 tab PO DAILY 05/23/24 07/20/24 History Allergies Allergy/AdvReac Type Severity Reaction Status Date / Time lisinopril Allergy Cough Verified 07/20/24 13:29 [email or web address] (From Myrbetriq) Allergy Rash Verified 07/20/24 13:29 gabapentin AdvReac not Verified 07/20/24 13:29 effective Exam Constitutional Vital Signs, click to edit/add: Last Vital Signs Temp 98.3 F 07/20/24 13:24 Pulse 88 07/20/24 13:24 Resp 20 07/20/24 13:24 BP 118/75 07/20/24 15:00 Pulse Ox 98 07/20/24 15:10 O2 Del Method Room Air 07/20/24 13:24 Documenting provider has reviewed patient's vital signs: yes Common normals: no apparent distress and oriented x3 General appearance: cooperative HENMT Common normals: normocephalic and head/scalp atraumatic Head and scalp: normocephalic and atraumatic Eye Common normals: conjunctivae normal and no scleral icterus Conjunctiva: conjunctiva(e) normal Respiratory Common normals: normal respiratory effort and clear to auscultation bilaterally Effort & inspection: able to speak in complete sentences Auscultation: clear to auscultation bilaterally Cardio Common normals: regular rate, S1 normal heart sound and S2 normal heart sound Rate: regular rate Heart sounds: S1 normal and S2 normal GI Common normals: soft to palpation, non-tender and no hepatosplenomegaly Palpation: soft and no hepatosplenomegaly Other: SPC in place Extremity Common normals: no clubbing, cyanosis or edema Neuro Common normals: oriented x3, moves all extremities and no focal motor deficits Psych Common normals: mental status grossly normal, denies hallucinations, denies homicidal ideation and denies suicidal ideation Results Labs Labs: Short CBC 07/20/24 Range/Units 13:43 WBC 21.4 H (4.0-11.0) 10^3/uL Hgb 10.2 L (14.0-18.0) g/dL Hct 31.3 L (42.0-54.0) % Plt Count 202 (150-450) 10^3/uL BMP 07/20/24 13:43 Sodium 131 L Potassium 5.1 Chloride 99 Carbon Dioxide 20.4 L BUN 47.0 H Creatinine 4.79 H Glucose 206 H Calcium 9.1 Liver Function 07/20/24 Range/Units 13:43 Total Bilirubin 0.8 (0.2-1.0) mg/dL AST 20 (15-37) U/L ALT 27 (16-63) U/L Alkaline Phosphatase 136 H (46-116) U/L Albumin 2.9 L (3.4-5.0) g/dL Urine 07/20/24 Range/Units 14:20 Urine Color Yellow (YELLOW) Urine Clarity Clear (CLEAR) Urine pH 6.0 (5.0-9.0) Ur Specific Cadet 1.015 (1.005-1.025) Urine Protein >=300 A (NEG/TRACE) mg/dL Urine Glucose (UA) Negative (NEGATIVE) mg/dL Assessment and Plan Assessment and Plan (1) RINA (acute kidney injury): Assessment and Plan: Patient did with serum creatinine of 4.7. Baseline creatinine is around 2-2.5. Likely prerenal. Started on IV fluids. Will get CT abdomen pelvis to rule out genitourinary obstruction because of his prior history of chronic hydronephrosis and presence of bilateral ureteral stent (2) CKD stage 3b, GFR 30-44 ml/min: Assessment and Plan: Presented with acute kidney injury. Monitor serum creatinine and urine output closely. (3) Catheter-associated urinary tract infection: Assessment and Plan: Has chronic suprapubic catheter in place. Will start on IV ceftazidime. At risk of resistant organism because of recurrent UTI and chronic hydronephrosis/ureteral stent. Qualifiers: Indwelling urinary catheter type: cystostomy catheter Encounter type: subsequent encounter Qualified Code(s): T83.510D - Infection and inflammatory reaction due to cystostomy catheter, subsequent encounter; N39.0 - Urinary tract infection, site not specified (4) Leukocytosis: Assessment and Plan: Due to dehydration and UTI. On IV antibiotics. Follow-up blood and urine cultures Qualifiers: Leukocytosis type: leukemoid reaction Qualified Code(s): D72.823 - Leukemoid reaction (5) Lactic acidosis: Assessment and Plan: Due to dehydration. IV fluids. Recheck (6) Orthostatic dizziness: Assessment and Plan: Likely secondary to dehydration and underlying infection. Monitor blood pressure closely. (7) Hydroureteronephrosis: Assessment and Plan: Chronic hydroureteronephrosis. CT abdomen pelvis ordered to ensure no acute obstructive uropathy. (8) Diabetes: Assessment and Plan: On basal bolus insulin. Decrease Lantus dose to 20 units because of acute kidney injury. 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 Qualifiers: Lower urinary tract symptom presence: symptoms present Lower urinary tract symptom detail: urinary obstruction Qualified Code(s): N40.1 - Benign prostatic hyperplasia with lower urinary tract symptoms; N13.8 - Other obstructive and reflux uropathy
[2024-07-20 16:22] LABS: Lactate/Lactic Acid 1.9 mmol/L (0.4-2.0)
[2024-07-20] MEDS: LACTATED RINGER'S SOLUTION 1,000 ML 125 ML IV (18:42)
[2024-07-20] MEDS: CEFTAZIDIME 1,000 MG in 0.9 % SODIUM CHLORIDE 50 ML 100 MG IV (22:04)
[2024-07-20] MEDS: HEPARIN SODIUM (PORCINE) 5,000 UNIT/ML VIAL 5000 UNIT SUBQ (22:05)
[2024-07-20] MEDS: ATORVASTATIN CALCIUM 20 MG TABLET PO (22:05)
[2024-07-20] MEDS: OXYBUTYNIN CHLORIDE 5 MG TAB XL 10 MG PO (22:05)
[2024-07-20] MEDS: INSULIN ASPART 300 UNIT/3 ML PEN SUBQ (22:06)
[2024-07-20] MEDS: INSULIN GLARGINE 300 UNIT/3 ML INSULN.PEN 25 UNIT SQ (22:06)
[2024-07-20 22:12] LABS: Glucometer 171 mg/dL (74-106)
[2024-07-20] MEDS: ACETAMINOPHEN 325 MG TABLET 650 MG PO (23:52)
[2024-07-21] VITALS (20 sets, daily range): BP systolic 145–170; BP diastolic 66–79; PULSE 73–86; TEMP 36.8–36.9; O2SAT 94–97
[2024-07-21] MEDS: LACTATED RINGER'S SOLUTION 1,000 ML 125 ML IV ×3 (03:31→20:04)
[2024-07-21] MEDS: HEPARIN SODIUM (PORCINE) 5,000 UNIT/ML VIAL 5000 UNIT SUBQ ×3 (05:43→21:06)
[2024-07-21 06:43] LABS: Basophils Percent Auto 0.2 % (0.2-2.0); Eosinophils Absolute Auto 0.4 10^3/uL (0.0-0.7); Eosinophils Percent Auto 2.3 % (0.9-7.0); Hematocrit 28.2 % (42.0-54.0); Hemoglobin 9.3 g/dL (14.0-18.0); Immature Granulocytes Abs Auto 0.08 10^3/uL (0.00-0.03); Immature Granulocytes Pct Auto 0.5 % (0.0-0.5); Lymphocytes Absolute Auto 0.6 10^3/uL (1.2-3.8); Lymphocytes Percent Auto 3.3 % (20.5-60.0); Mean Corpuscular Hemoglobin 35.2 pg (25.9-34.0); Mean Corpuscular Volume 106.8 fL (80.0-94.0); Mean Platelet Volume 9.9 fL (9.5-13.5); Monocytes Absolute Auto 0.7 10^3/uL (0.3-0.8); Monocytes Percent Auto 4.1 % (1.7-12.0); Neutrophils Absolute Auto 14.9 10^3/uL (1.4-6.5); Neutrophils Percent Auto 89.6 % (43.0-75.0); Platelet Count 169 10^3/uL (150-450); Red Blood Count 2.64 10^6/uL (4.70-6.10); Red Cell Distribution Width 15.2 % (11.0-15.0); White Blood Count 16.6 10^3/uL (4.0-11.0)
[2024-07-21 07:03] LABS: Alanine Aminotransferase 22 U/L (16-63); Albumin Globulin Ratio 0.7; Albumin Level 2.6 g/dL (3.4-5.0); Alkaline Phosphatase 134 U/L (46-116); Anion Gap 17.3; Aspartate Amino Transferase 21 U/L (15-37); BUN Creatinine Ratio 10.8; Bilirubin Total 0.4 mg/dL (0.2-1.0); Calcium 8.8 mg/dL (8.5-10.1); Carbon Dioxide 18.4 mmol/L (21.0-32.0); Chloride 105 mmol/L (98-107); Estimated GFR (African America 14 (>=60 mL/min/1.73m^2); Estimated GFR (Non-African Ame 12 (>=60 mL/min/1.73m^2); Globulin 3.7 g/dL; Glucose 133 mg/dL (74-106); Potassium 4.7 mmol/L (3.5-5.1); Sodium 136 mmol/L (136-145); Total Protein 6.3 g/dL (6.4-8.2)
[2024-07-21] MEDS: 0.9 % SODIUM CHLORIDE 1,000 ML 1000 ML IV (09:16)
[2024-07-21] MEDS: FAMOTIDINE 20 MG TABLET PO (09:28)
[2024-07-21] MEDS: L. ACIDOPHILUS/L.BULGARICUS TABLET 1 TAB PO (09:28)
[2024-07-21] MEDS: B COMPLEX/FOLIC ACID SOFTGEL CAPSULE 1 CAP PO (09:28)
[2024-07-21] MEDS: DOCUSATE SODIUM 100 MG CAPSULE PO (09:28)
[2024-07-21] MEDS: ASPIRIN 81 MG TAB.CHEW PO (09:28)
[2024-07-21] MEDS: CHOLECALCIFEROL (VITAMIN D3) 25 MCG/1,000 UNITS TABLET 50 MCG PO (09:28)
[2024-07-21] MEDS: MULTIVITAMIN TABLET 1 TAB PO (09:29)
[2024-07-21] MEDS: OXYBUTYNIN CHLORIDE 5 MG TAB XL 10 MG PO ×2 (09:29→20:05)
[2024-07-21] MEDS: ACETAMINOPHEN 325 MG TABLET 650 MG PO (10:16)
--- NOTE | 2024-07-21 10:29 | CM.NOTE ---
Rounds made with Dr. Hayes. Dr. Hayes reviews abnormal labs and plan of care with Mr./Mrs. Mills-no plan for discharge today.
--- NOTE | 2024-07-21 10:36 | P.IMPN_ITS ---
Progress Note: A&P Assessment and Plan (1) RINA (acute kidney injury): Assessment and Plan: Baseline Cr is 2.2 as per . Presented with cr of 4.7, no improvement overnight. Ordered 1L bolus. Repeat BMP at 2 pm C/w IVF No obstruction on CT. (2) CKD stage 3b, GFR 30-44 ml/min: Assessment and Plan: Baseline Cr is 2.2, presented with RINA, decreased urination. C/w IVF. Monitor UO, serum cr. (3) Catheter-associated urinary tract infection: Assessment and Plan: On IV ceftazidime. F/u urine cx. Qualifiers: Indwelling urinary catheter type: cystostomy catheter Encounter type: subsequent encounter Qualified Code(s): T83.510D - Infection and inflammatory reaction due to cystostomy catheter, subsequent encounter; N39.0 - Urinary tract infection, site not specified (4) Leukocytosis: Assessment and Plan: 16 k , down from 21. C/w IV abx. Qualifiers: Leukocytosis type: leukemoid reaction Qualified Code(s): D72.823 - Leukemoid reaction (5) Lactic acidosis: Assessment and Plan: C/w IVF. (6) Orthostatic dizziness: Assessment and Plan: Improved. PT/OT eval. (7) Hydroureteronephrosis: Assessment and Plan: Chronic/mild hydronephrosis, stents in place. (8) Diabetes: Assessment and Plan: C/w basal/bolus insulin. FSBS at goal Qualifiers: Diabetes mellitus type: type 2 Diabetes mellitus long-term insulin use: with terminal operations manager use Diabetes mellitus complication status: with kidney complications Diabetes mellitus complication detail: with chronic kidney disease Chronic kidney disease stage: stage 3 (moderate) Chronic kidney disease stage 3 subtype: stage 3b (GFR 30-44) Qualified Code(s): E11.22 - Type 2 diabetes mellitus with diabetic chronic kidney disease; N18.32 - Chronic kidney disease, stage 3b; Z79.4 - assisted (current) use of insulin (9) Benign prostatic hyperplasia: Assessment and Plan: SPC in palce. Qualifiers: Lower urinary tract symptom presence: symptoms present Lower urinary tract symptom detail: urinary obstruction Qualified Code(s): N40.1 - Benign prostatic hyperplasia with lower urinary tract symptoms; N13.8 - Other obstructive and reflux uropathy Internal Medicine - PN: Subj Subjective Interval history: Seen and examined. Reports feeling a little better. Still feels weak and tired. UO has improved but serum cr has not improved. Exam Constitutional Vital Signs, click to edit/add: Last Vital Signs Temp 98.2 F 07/21/24 08:08 Pulse 86 07/21/24 10:00 Resp 16 07/21/24 08:08 BP 154/74 H 07/21/24 08:08 Pulse Ox 94 L 07/21/24 08:08 O2 Del Method Room Air 07/21/24 08:08 Documenting provider has reviewed patient's vital signs: yes Common normals: no apparent distress and oriented x3 General appearance: cooperative Respiratory Common normals: normal respiratory effort and clear to auscultation bilaterally Effort & inspection: able to speak in complete sentences Auscultation: clear to auscultation bilaterally Cardio Common normals: regular rate, S1 normal heart sound and S2 normal heart sound Rate: regular rate Heart sounds: S1 normal and S2 normal GI Common normals: soft to palpation, non-tender and no hepatosplenomegaly Palpation: soft and no hepatosplenomegaly Other: SPC in place Extremity Common normals: no clubbing, cyanosis or edema Neuro Common normals: oriented x3, moves all extremities and no focal motor deficits Psych Common normals: mental status grossly normal, denies hallucinations, denies homicidal ideation and denies suicidal ideation Internal Medicine - PN: Obj Da Labs Labs: Laboratory Results - last 24 hr 07/20/24 07/20/24 07/20/24 13:43 14:20 15:55 WBC 21.4 H RBC 2.91 L Hgb 10.2 L Hct 31.3 L MCV 107.6 H MCH 35.1 H MCHC 32.6 RDW 15.3 H Plt Count 202 MPV 9.8 Neut % (Auto) Lymph % (Auto) Overton % (Auto) Eos % (Auto) Baso % (Auto) Neut # (Auto) Lymph # (Auto) Overton # (Auto) Eos # (Auto) Baso # (Auto) Abs Immat Gran (auto) Seg Neuts % (Manual) 81.0 H Band Neutrophils % 11.0 H Lymphocytes % (Manual) 3.0 L Monocytes % (Manual) 4.0 Eosinophils % (Manual) 1.0 Basophils % (Manual) 0.0 L Imm/Tot Granulo (auto) Neutrophils # (Manual) 17.33 H Band Neutrophils # 2.4 H Lymphocytes # (Manual) 0.64 L Monocytes # (Manual) 0.85 H Eosinophils # (Manual) 0.21 Basophils # (Manual) 0.00 Poikilocytosis 1+ Tear Drop Cells 1+ Ovalocytes 1+ PT 12.4 H INR 1.19 Sodium 131 L Potassium 5.1 Chloride 99 Carbon Dioxide 20.4 L Anion Gap 16.7 BUN 47.0 H Creatinine 4.79 H Est GFR ( Amer) 14 L Est GFR (Non-Af Amer) 12 L BUN/Creatinine Ratio 9.8 Glucose 206 H Lactate 2.4 H* 1.9 Calcium 9.1 Total Bilirubin 0.8 AST 20 ALT 27 Alkaline Phosphatase 136 H Total Protein 6.9 Albumin 2.9 L Globulin 4.0 Albumin/Globulin Ratio 0.7 Urine Color Yellow Urine Clarity Clear Urine pH 6.0 Ur Specific Henderson 1.015 Urine Protein >=300 A Urine Glucose (UA) Negative Urine Ketones Negative Urine Occult Blood Large A Urine Nitrite Negative Urine Bilirubin Negative Urine Urobilinogen 0.2 Ur Leukocyte Esterase Large A Urine RBC 20-50 A Urine WBC >100 A Ur Squamous Epith Cells Few A Urine Bacteria Large A Urine Mucus None seen Urine Yeast Seen A Ur Culture Indicated? Yes POC Glucose 07/20/24 07/21/24 22:04 05:52 WBC 16.6 H RBC 2.64 L Hgb 9.3 L Hct 28.2 L MCV 106.8 H MCH 35.2 H MCHC 33.0 RDW 15.2 H Plt Count 169 MPV 9.9 Neut % (Auto) 89.6 H Lymph % (Auto) 3.3 L Overton % (Auto) 4.1 Eos % (Auto) 2.3 Baso % (Auto) 0.2 Neut # (Auto) 14.9 H Lymph # (Auto) 0.6 L Overton # (Auto) 0.7 Eos # (Auto) 0.4 Baso # (Auto) 0.0 Abs Immat Gran (auto) 0.08 H Seg Neuts % (Manual) Band Neutrophils % Lymphocytes % (Manual) Monocytes % (Manual) Eosinophils % (Manual) Basophils % (Manual) Imm/Tot Granulo (auto) 0.5 Neutrophils # (Manual) Band Neutrophils # Lymphocytes # (Manual) Monocytes # (Manual) Eosinophils # (Manual) Basophils # (Manual) Poikilocytosis Tear Drop Cells Ovalocytes PT INR Sodium 136 Potassium 4.7 Chloride 105 Carbon Dioxide 18.4 L Anion Gap 17.3 BUN 52.0 H Creatinine 4.83 H Est GFR ( Amer) 14 L Est GFR (Non-Af Amer) 12 L BUN/Creatinine Ratio 10.8 Glucose 133 H Lactate Calcium 8.8 Total Bilirubin 0.4 AST 21 ALT 22 Alkaline Phosphatase 134 H Total Protein 6.3 L Albumin 2.6 L Globulin 3.7 Albumin/Globulin Ratio 0.7 Urine Color Urine Clarity Urine pH Ur Specific [place] Urine Protein Urine Glucose (UA) Urine Ketones Urine Occult Blood Urine Nitrite Urine Bilirubin Urine Urobilinogen Ur Leukocyte Esterase Urine RBC Urine WBC Ur Squamous Epith Cells Urine Bacteria Urine Mucus Urine Yeast Ur Culture Indicated? POC Glucose 171 H Urinary Catheter Management Urinary Catheter Management Suprapubic: Cath placed during this visit: no
[2024-07-21 11:50] LABS: Glucometer 232 mg/dL (74-106)
[2024-07-21] MEDS: INSULIN ASPART 300 UNIT/3 ML PEN SUBQ ×3 (12:03→21:07)
--- NOTE | 2024-07-21 15:03 | SWNOTE1 ---
Important Message from [employer] reviewed and discussed with patient. Pt. verbalized understanding and signed the form. Original given to patient and copy placed in patient?s chart.
[2024-07-21 15:04] LABS: Anion Gap 17.8; BUN Creatinine Ratio 11.7; Calcium 8.8 mg/dL (8.5-10.1); Chloride 106 mmol/L (98-107); Estimated GFR (African America 14 (>=60 mL/min/1.73m^2); Estimated GFR (Non-African Ame 11 (>=60 mL/min/1.73m^2); Glucose 166 mg/dL (74-106); Potassium 4.8 mmol/L (3.5-5.1); Sodium 136 mmol/L (136-145)
--- NOTE | 2024-07-21 15:04 | SWNOTE1 ---
SW met with pt to discuss dc needs. Pt lives at home with his . Pt uses a cane at home at times. He has things to grab on to when he goes down to the basement. Pt does not have any services coming in to the home at this time. Pt does not feel he will need any services at discharge. SW to follow as needed. No anticipated discharge needs at this time.
[2024-07-21 16:46] LABS: Glucometer 163 mg/dL (74-106)
[2024-07-21] MEDS: ATORVASTATIN CALCIUM 20 MG TABLET PO (20:05)
[2024-07-21] MEDS: CEFTAZIDIME 1,000 MG in 0.9 % SODIUM CHLORIDE 50 ML 100 MG IV (20:05)
[2024-07-21 20:27] LABS: Glucometer 238 mg/dL (74-106)
[2024-07-21] MEDS: INSULIN GLARGINE 300 UNIT/3 ML INSULN.PEN 25 UNIT SQ (21:07)
[2024-07-22] VITALS (23 sets, daily range): BP systolic 152–191; BP diastolic 71–84; PULSE 69–97; TEMP 36.8–37; O2SAT 94–97; BMI 30.1
[2024-07-22] MEDS: LACTATED RINGER'S SOLUTION 1,000 ML 125 ML IV ×3 (04:37→20:42)
[2024-07-22] MEDS: HEPARIN SODIUM (PORCINE) 5,000 UNIT/ML VIAL 5000 UNIT SUBQ ×3 (05:22→21:45)
[2024-07-22 06:09] LABS: Basophils Percent Auto 0.1 % (0.2-2.0); Eosinophils Absolute Auto 0.3 10^3/uL (0.0-0.7); Eosinophils Percent Auto 2.3 % (0.9-7.0); Hematocrit 26.9 % (42.0-54.0); Hemoglobin 8.8 g/dL (14.0-18.0); Immature Granulocytes Abs Auto 0.08 10^3/uL (0.00-0.03); Immature Granulocytes Pct Auto 0.6 % (0.0-0.5); Lymphocytes Absolute Auto 0.7 10^3/uL (1.2-3.8); Lymphocytes Percent Auto 5.5 % (20.5-60.0); Mean Corpuscular HGB Conc 32.7 g/dL (29.9-35.2); Mean Corpuscular Hemoglobin 34.9 pg (25.9-34.0); Mean Corpuscular Volume 106.7 fL (80.0-94.0); Mean Platelet Volume 10.3 fL (9.5-13.5); Monocytes Absolute Auto 0.6 10^3/uL (0.3-0.8); Monocytes Percent Auto 4.6 % (1.7-12.0); Neutrophils Percent Auto 86.9 % (43.0-75.0); Platelet Count 161 10^3/uL (150-450); White Blood Count 12.6 10^3/uL (4.0-11.0)
[2024-07-22 06:25] LABS: Alanine Aminotransferase 26 U/L (16-63); Albumin Globulin Ratio 0.6; Albumin Level 2.2 g/dL (3.4-5.0); Alkaline Phosphatase 147 U/L (46-116); Anion Gap 14.5; Aspartate Amino Transferase 22 U/L (15-37); BUN Creatinine Ratio 11.8; Bilirubin Total 0.3 mg/dL (0.2-1.0); Calcium 8.9 mg/dL (8.5-10.1); Carbon Dioxide 19.3 mmol/L (21.0-32.0); Chloride 108 mmol/L (98-107); Estimated GFR (African America 13 (>=60 mL/min/1.73m^2); Estimated GFR (Non-African Ame 11 (>=60 mL/min/1.73m^2); Globulin 3.7 g/dL; Glucose 100 mg/dL (74-106); Potassium 4.8 mmol/L (3.5-5.1); Sodium 137 mmol/L (136-145); Total Protein 5.9 g/dL (6.4-8.2)
[2024-07-22 06:33] LABS: Red Blood Count 2.52 10^6/uL (4.70-6.10)
[2024-07-22] MEDS: L. ACIDOPHILUS/L.BULGARICUS TABLET 1 TAB PO (09:08)
[2024-07-22] MEDS: ASPIRIN 81 MG TAB.CHEW PO (09:08)
[2024-07-22] MEDS: MULTIVITAMIN TABLET 1 TAB PO (09:08)
[2024-07-22] MEDS: DOCUSATE SODIUM 100 MG CAPSULE PO (09:08)
[2024-07-22] MEDS: B COMPLEX/FOLIC ACID SOFTGEL CAPSULE 1 CAP PO (09:08)
[2024-07-22] MEDS: CHOLECALCIFEROL (VITAMIN D3) 25 MCG/1,000 UNITS TABLET 50 MCG PO (09:08)
[2024-07-22] MEDS: OXYBUTYNIN CHLORIDE 5 MG TAB XL 10 MG PO ×2 (09:08→21:45)
[2024-07-22] MEDS: FAMOTIDINE 20 MG TABLET PO (09:08)
--- NOTE | 2024-07-22 10:42 | CM.NOTE ---
Rounds made with Dr. Hayes, discussed plan of care with pt and . No discharge at this time, Dr. Hayes will reach out to pt's planer hand for further recommendations.
--- NOTE | 2024-07-22 11:37 | PM.IMPN1 ---
Progress Note: A&P Assessment and Plan (1) RINA (acute kidney injury): Assessment and Plan: Baseline Cr is 2.2 as per . Presented with cr of 4.7, no improvement overnight. Worsening RINA, despite fluid resuscitation. No obstruction on CT. D/w Nephrology, he will need nuclear scan with Lasix. Unable to perform this at and also we do not have Nephrology coverage at our hospital. Will need to transfer for nephrology evaluation and nuclear scan. He may end up needing HD also which we are unable to do at our facility. 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 (3) Catheter-associated urinary tract infection: Assessment and Plan: On IV ceftazidime. F/u urine cx. Qualifiers: Indwelling urinary catheter type: cystostomy catheter Encounter type: subsequent encounter Qualified Code(s): T83.510D - Infection and inflammatory reaction due to cystostomy catheter, subsequent encounter; N39.0 - Urinary tract infection, site not specified (4) Leukocytosis: Assessment and Plan: Trending down. C/w IV abx. Qualifiers: Leukocytosis type: leukemoid reaction Qualified Code(s): D72.823 - Leukemoid reaction (5) Lactic acidosis: Assessment and Plan: Resolved. (6) Orthostatic dizziness: Assessment and Plan: Improved. PT/OT eval. (7) Hydroureteronephrosis: Assessment and Plan: Chronic/mild hydronephrosis, stents in place. (8) Diabetes: Assessment and Plan: C/w basal/bolus insulin. 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 Qualifiers: Lower urinary tract symptom presence: symptoms present Lower urinary tract symptom detail: urinary obstruction Qualified Code(s): N40.1 - Benign prostatic hyperplasia with lower urinary tract symptoms; N13.8 - Other obstructive and reflux uropathy Plan Worsening renal function despite adequate fluid resuscitation. d/w Nephrology at [facility], will need higher level of care, awaiting call from hospitalist to accept the patient. Internal Medicine - PN: Subj Subjective Interval history: Seen and examined. Patient reports feeling better. He feels that he is a little puffy. UO of about 2 L in past 24 hours. Exam Constitutional Vital Signs, click to edit/add: Last Vital Signs Temp 98.6 F 07/22/24 08:08 Pulse 72 07/22/24 09:53 Resp 18 07/22/24 08:08 BP 171/76 H 07/22/24 08:08 Pulse Ox 96 07/22/24 09:39 O2 Del Method Room Air 07/22/24 09:39 Documenting provider has reviewed patient's vital signs: yes Common normals: no apparent distress and oriented x3 General appearance: cooperative Respiratory Common normals: normal respiratory effort and clear to auscultation bilaterally Effort & inspection: able to speak in complete sentences Auscultation: clear to auscultation bilaterally Cardio Common normals: regular rate, S1 normal heart sound and S2 normal heart sound Rate: regular rate Heart sounds: S1 normal and S2 normal GI Common normals: soft to palpation, non-tender and no hepatosplenomegaly Palpation: soft and no hepatosplenomegaly Other: SPC in place Extremity Common normals: no clubbing, cyanosis or edema Neuro Common normals: oriented x3, moves all extremities and no focal motor deficits Psych Common normals: mental status grossly normal, denies hallucinations, denies homicidal ideation and denies suicidal ideation Internal Medicine - PN: Obj Da Labs Labs: Laboratory Results - last 24 hr 07/21/24 07/21/24 07/21/24 11:47 13:51 16:44 WBC RBC Hgb Hct MCV MCH MCHC RDW Plt Count MPV Neut % (Auto) Lymph % (Auto) [place] % (Auto) Eos % (Auto) Baso % (Auto) Neut # (Auto) Lymph # (Auto) [place] # (Auto) Eos # (Auto) Baso # (Auto) Abs Immat Gran (auto) Imm/Tot Granulo (auto) Sodium 136 Potassium 4.8 Chloride 106 Carbon Dioxide 17.0 L Anion Gap 17.8 BUN 58.0 H Creatinine 4.94 H Est GFR ( Amer) 14 L Est GFR (Non-Af Amer) 11 L BUN/Creatinine Ratio 11.7 Glucose 166 H Calcium 8.8 Total Bilirubin AST ALT Alkaline Phosphatase Total Protein Albumin Globulin Albumin/Globulin Ratio POC Glucose 232 H 163 H 07/21/24 07/22/24 20:26 05:18 WBC 12.6 H RBC 2.52 L Hgb 8.8 L Hct 26.9 L MCV 106.7 H MCH 34.9 H MCHC 32.7 RDW 15.0 Plt Count 161 MPV 10.3 Neut % (Auto) 86.9 H Lymph % (Auto) 5.5 L [place] % (Auto) 4.6 Eos % (Auto) 2.3 Baso % (Auto) 0.1 L Neut # (Auto) 11.0 H Lymph # (Auto) 0.7 L [place] # (Auto) 0.6 Eos # (Auto) 0.3 Baso # (Auto) 0.0 Abs Immat Gran (auto) 0.08 H Imm/Tot Granulo (auto) 0.6 H Sodium 137 Potassium 4.8 Chloride 108 H Carbon Dioxide 19.3 L Anion Gap 14.5 BUN 61.0 H Creatinine 5.15 H* Est GFR ( Amer) 13 L Est GFR (Non-Af Amer) 11 L BUN/Creatinine Ratio 11.8 Glucose 100 Calcium 8.9 Total Bilirubin 0.3 AST 22 ALT 26 Alkaline Phosphatase 147 H Total Protein 5.9 L Albumin 2.2 L Globulin 3.7 Albumin/Globulin Ratio 0.6 POC Glucose 238 H Urinary Catheter Management Urinary Catheter Management Suprapubic: Cath placed during this visit: no
--- NOTE | 2024-07-22 11:46 | PT.DAILY ---
Physical Therapy Daily Note PT Daily Note/Assess Start: 07/22/24 11:41 Freq: Status: Active Protocol: Document 07/22/24 11:41 TOOTIE (Rec: 07/22/24 11:46 TOOTIE [id number]) Physical Therapy Daily Note/Assessment Time In/Time Out Time In 11:20 Time Out 11:30 Pain In Pain N/A Pain Out Pain N/A Subjective Subjective Pt standing in restroom with OT upon arrival. Agrees to PT in room. Feeling better after having a bowel movement and brushing teeth. Therapeutic Activity Time Therapeutic Activity 8 Minutes (minutes) Therapeutic Activity 1 Units Therapeutic Activity Treatment Therapeutic Activity Pt amb in room 4 laps for 80' with RW, SBA with assist Comments for IV pole. Portable step is brought to pt's room for stair trainig. Pt able to ascend and descend 8 step 3x with RW bilat UE support - simulating steps in garage (3 steps with handrail) this is complete CGA. Pt then amb 3 more laps for 60' with RW, SBA with assist for IV . Pt remains in BS chair upon completion with present and call light within reach. Total Physical Therapy Time Total Therapy 8 Minutes Total Physical 1 Therapy Units Summary Daily Note Summary Improved gait endurance. Steady and confident with stair training. Does require motivation for participation on this date.
[2024-07-22 12:17] LABS: Glucometer 171 mg/dL (74-106)
[2024-07-22] MEDS: INSULIN ASPART 300 UNIT/3 ML PEN SUBQ ×2 (12:17→21:45)
[2024-07-22 16:24] LABS: Glucometer 181 mg/dL (74-106)
[2024-07-22] MEDS: HYDRALAZINE HCL 20 MG/ML VIAL 10 MG IVP ×2 (16:30→21:45)
[2024-07-22] MEDS: ONDANSETRON PF 4 MG/2 ML VIAL IV (17:22)
[2024-07-22] MEDS: CEFTAZIDIME 1,000 MG in 0.9 % SODIUM CHLORIDE 50 ML 100 MG IV (21:44)
[2024-07-22] MEDS: ATORVASTATIN CALCIUM 20 MG TABLET PO (21:45)
[2024-07-22] MEDS: INSULIN GLARGINE 300 UNIT/3 ML INSULN.PEN 25 UNIT SQ (21:46)
[2024-07-22 21:51] LABS: Glucometer 169 mg/dL (74-106)
[2024-07-22] MEDS: ACETAMINOPHEN 325 MG TABLET 650 MG PO (23:27)
[2024-07-23] VITALS (20 sets, daily range): BP systolic 130–167; BP diastolic 57–73; PULSE 61–83; TEMP 36.7–37.1; O2SAT 93–96
[2024-07-23] MEDS: LACTATED RINGER'S SOLUTION 1,000 ML 125 ML IV ×2 (04:34→13:42)
[2024-07-23 06:38] LABS: Basophils Percent Auto 0.2 % (0.2-2.0); Eosinophils Absolute Auto 0.2 10^3/uL (0.0-0.7); Eosinophils Percent Auto 2.1 % (0.9-7.0); Hematocrit 25.3 % (42.0-54.0); Hemoglobin 8.2 g/dL (14.0-18.0); Immature Granulocytes Abs Auto 0.08 10^3/uL (0.00-0.03); Immature Granulocytes Pct Auto 0.7 % (0.0-0.5); Lymphocytes Absolute Auto 0.6 10^3/uL (1.2-3.8); Lymphocytes Percent Auto 5.3 % (20.5-60.0); Mean Corpuscular HGB Conc 32.4 g/dL (29.9-35.2); Mean Corpuscular Hemoglobin 34.7 pg (25.9-34.0); Mean Corpuscular Volume 107.2 fL (80.0-94.0); Mean Platelet Volume 9.9 fL (9.5-13.5); Monocytes Absolute Auto 0.8 10^3/uL (0.3-0.8); Monocytes Percent Auto 6.8 % (1.7-12.0); Neutrophils Absolute Auto 9.4 10^3/uL (1.4-6.5); Neutrophils Percent Auto 84.9 % (43.0-75.0); Platelet Count 154 10^3/uL (150-450); Red Blood Count 2.36 10^6/uL (4.70-6.10); Red Cell Distribution Width 15.4 % (11.0-15.0); White Blood Count 11.1 10^3/uL (4.0-11.0)
[2024-07-23] MEDS: HEPARIN SODIUM (PORCINE) 5,000 UNIT/ML VIAL 5000 UNIT SUBQ ×3 (06:48→21:27)
[2024-07-23 07:13] LABS: Alanine Aminotransferase 22 U/L (16-63); Albumin Globulin Ratio 0.6; Alkaline Phosphatase 152 U/L (46-116); Anion Gap 14.8; Aspartate Amino Transferase 18 U/L (15-37); BUN Creatinine Ratio 10.6; Bilirubin Total 0.4 mg/dL (0.2-1.0); Calcium 8.8 mg/dL (8.5-10.1); Chloride 110 mmol/L (98-107); Estimated GFR (African America 11 (>=60 mL/min/1.73m^2); Estimated GFR (Non-African Ame 9 (>=60 mL/min/1.73m^2); Globulin 3.6 g/dL; Glucose 89 mg/dL (74-106); Potassium 4.8 mmol/L (3.5-5.1); Sodium 139 mmol/L (136-145); Total Protein 5.6 g/dL (6.4-8.2)
[2024-07-23] MEDS: FAMOTIDINE 20 MG TABLET PO (09:41)
[2024-07-23] MEDS: ONDANSETRON PF 4 MG/2 ML VIAL IV (09:41)
[2024-07-23] MEDS: B COMPLEX/FOLIC ACID SOFTGEL CAPSULE 1 CAP PO (09:41)
[2024-07-23] MEDS: DOCUSATE SODIUM 100 MG CAPSULE PO (09:41)
[2024-07-23] MEDS: MULTIVITAMIN TABLET 1 TAB PO (09:41)
[2024-07-23] MEDS: L. ACIDOPHILUS/L.BULGARICUS TABLET 1 TAB PO (09:41)
[2024-07-23] MEDS: ASPIRIN 81 MG TAB.CHEW PO (09:41)
[2024-07-23] MEDS: CHOLECALCIFEROL (VITAMIN D3) 25 MCG/1,000 UNITS TABLET 50 MCG PO (09:41)
--- NOTE | 2024-07-23 11:03 | P.DS_ITS ---
DS: Providers Provider Date of admission: 07/20/24 17:08 Primary care physician: HELEN OCHOA Consults: 07/20/24 15:00 Occupational Therapy Eval and Treat Routine Reason for consultation: Ambulatory dysfunction/weakness Physical Therapy Eval and Treat Routine Reason for consultation: Ambulatory dysfunction/weakness DS: Diagnosis Discharge Diagnosis (1) RINA (acute kidney injury): (2) CKD stage 3b, GFR 30-44 ml/min: (3) Catheter-associated urinary tract infection: Qualifiers: Indwelling urinary catheter type: cystostomy catheter Encounter type: subsequent encounter Qualified Code(s): T83.510D - Infection and inflammatory reaction due to cystostomy catheter, subsequent encounter; N39.0 - Urinary tract infection, site not specified (4) Leukocytosis: Qualifiers: Leukocytosis type: leukemoid reaction Qualified Code(s): D72.823 - Leukemoid reaction (5) Lactic acidosis: (6) Orthostatic dizziness: (7) Hydroureteronephrosis: (8) Diabetes: Qualifiers: Diabetes mellitus type: type 2 Diabetes mellitus long term care administrator insulin use: with long term care administrator use Diabetes mellitus complication status: with kidney complications Diabetes mellitus complication detail: with chronic kidney disease Chronic kidney disease stage: stage 3 (moderate) Chronic kidney disease stage 3 subtype: stage 3b (GFR 30-44) Qualified Code(s): E11.22 - Type 2 diabetes mellitus with diabetic chronic kidney disease; N18.32 - Chronic kidney disease, stage 3b; 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 Presented with cr of 4.7, no improvement overnight. Worsening RINA, despite fluid resuscitation. No obstruction on CT. D/w Nephrology, he will need nuclear scan with Lasix. Unable to perform this at and also we do not have Nephrology coverage at our hospital. Will need to transfer for nephrology evaluation and nuclear scan. He may end up needing HD also which we are unable to do at our facility. 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 (3) Catheter-associated urinary tract infection: Assessment and Plan: On IV ceftazidime. F/u urine cx. Qualifiers: Indwelling urinary catheter type: cystostomy catheter Encounter type: subsequent encounter Qualified Code(s): T83.510D - Infection and inflammatory reaction due to cystostomy catheter, subsequent encounter; N39.0 - Urinary tract infection, site not specified (4) Leukocytosis: Assessment and Plan: Trending down. C/w IV abx. Qualifiers: Leukocytosis type: leukemoid reaction Qualified Code(s): D72.823 - Leukemoid reaction (5) Lactic acidosis: Assessment and Plan: Resolved. (6) Orthostatic dizziness: Assessment and Plan: Improved. PT/OT eval. (7) Hydroureteronephrosis: Assessment and Plan: Chronic/mild hydronephrosis, stents in place. (8) Diabetes: Assessment and Plan: C/w basal/bolus insulin. FSBS at goal Qualifiers: Diabetes mellitus type: type 2 Diabetes mellitus intermediate insulin use: with long term care administrator use Diabetes mellitus complication status: with kidney complications Diabetes mellitus complication detail: with chronic kidney disease Chronic kidney disease stage: stage 3 (moderate) Chronic kidney disease stage 3 subtype: stage 3b (GFR 30-44) Qualified Code(s): E11.22 - Type 2 diabetes mellitus with diabetic chronic kidney disease; N18.32 - Chronic kidney disease, stage 3b; Z79.4 - alf (current) use of insulin (9) Benign prostatic hyperplasia: Assessment and Plan: SPC in palce. Qualifiers: Lower urinary tract symptom presence: symptoms present Lower urinary tract symptom detail: urinary obstruction Qualified Code(s): N40.1 - Benign prostatic hyperplasia with lower urinary tract symptoms; N13.8 - Other obstructive and reflux uropathy Plan DS: Summary Time Spent with Patient Time attestation: Total time spent providing and/or coordinating discharge services: Exam Constitutional Vital Signs, click to edit/add: Last Vital Signs Temp 98.8 F 07/23/24 08:10 Pulse 76 07/23/24 09:58 Resp 18 07/23/24 08:10 BP 148/73 H 07/23/24 08:10 Pulse Ox 95 07/23/24 08:10 O2 Del Method Room Air 07/23/24 08:10 DS: Data Data Completed and Pending Labs on day of discharge: Labs from last 24 hours 07/23/24 07/22/24 07/22/24 06:13 21:43 16:22 WBC 11.1 H RBC 2.36 L Hgb 8.2 L Hct 25.3 L MCV 107.2 H MCH 34.7 H MCHC 32.4 RDW 15.4 H Plt Count 154 MPV 9.9 Neut % (Auto) 84.9 H Lymph % (Auto) 5.3 L [place] % (Auto) 6.8 Eos % (Auto) 2.1 Baso % (Auto) 0.2 Neut # (Auto) 9.4 H Lymph # (Auto) 0.6 L [place] # (Auto) 0.8 Eos # (Auto) 0.2 Baso # (Auto) 0.0 Abs Immat Gran (auto) 0.08 H Imm/Tot Granulo (auto) 0.7 H Sodium 139 Potassium 4.8 Chloride 110 H Carbon Dioxide 19.0 L Anion Gap 14.8 BUN 66.0 H Creatinine 6.23 H* Est GFR ( Amer) 11 L Est GFR (Non-Af Amer) 9 L BUN/Creatinine Ratio 10.6 Glucose 89 Calcium 8.8 Total Bilirubin 0.4 AST 18 ALT 22 Alkaline Phosphatase 152 H Total Protein 5.6 L Albumin 2.0 L Globulin 3.6 Albumin/Globulin Ratio 0.6 POC Glucose 169 H 181 H 07/22/24 12:16 WBC RBC Hgb Hct MCV MCH MCHC RDW Plt Count MPV Neut % (Auto) Lymph % (Auto) [place] % (Auto) Eos % (Auto) Baso % (Auto) Neut # (Auto) Lymph # (Auto) [place] # (Auto) Eos # (Auto) Baso # (Auto) Abs Immat Gran (auto) Imm/Tot Granulo (auto) Sodium Potassium Chloride Carbon Dioxide Anion Gap BUN Creatinine Est GFR ( Amer) Est GFR (Non-Af Amer) BUN/Creatinine Ratio Glucose Calcium Total Bilirubin AST ALT Alkaline Phosphatase Total Protein Albumin Globulin Albumin/Globulin Ratio POC Glucose 171 H Preliminary micro results at discharge 07/20/24 14:03 Blood Culture Result 2 - Preliminary Blood - Right Forearm NO GROWTH AT 36-48 HOURS. FINAL TO FOLLOW. 07/20/24 13:45 Blood Culture Result 1 - Preliminary Blood - Right Antecubital NO GROWTH AT 36-48 HOURS. FINAL TO FOLLOW. Discharge Plan Discharge Condition: Fair Discharge Medications: No Action vitamin B complex Tablet 1 tab PO DAILY cyanocobalamin (vitamin B-12) [Vitamin B-12] 1,000 mcg tablet 1,000 mcg PO DAILY Aranesp (in polysorbate) 10 mcg/0.4 mL syringe 10 mcg subcut .EVERY OTHER WEEK Rx Instructions: GIVEN SUBQ EVERY OTHER WEEK IF HGB <10 insulin lispro 100 unit/mL insulin pen 8 unit subcut TIDWM Patient Comments: IN ADDITION TO SLIDING SCALE atorvastatin 20 mg tablet 20 mg PO .QHS famotidine 20 mg tablet 20 mg PO .QHS insulin glargine [Lantus Solostar U-100 Insulin] 100 unit/mL (3 mL) insulin pen 35 unit SUBCUT QPM insulin lispro 100 unit/mL insulin pen 1 - 11 sliding scale dose SUBCUT TIDWM Rx Instructions: 150-174 1 UNIT 175-199 2 UNITS 200-224 3 UNITS 225-249 4 UNITS 250-274 5 UNITS 275-299 6 UNITS 300-324 7 UNITS 325-349 8 UNITS 350-374 9 UNITS 375-399 10 UNITS 400-424 11 UNITS oxybutynin chloride 10 mg tablet extended release 24hr 10 mg PO BID aspirin 81 mg capsule 81 mg PO DAILY multivitamin [Daily Multi-Vitamin] Tablet 1 tab PO DAILY docusate sodium [Stool Softener] 100 mg capsule 100 mg PO .QHS cholecalciferol (vitamin D3) 50 mcg (2,000 unit) capsule 2,000 unit PO DAILY Probiotic 10 billion cell capsule 100 mmu cells PO DAILY Gentle Iron 28 mg iron-60mg -400 mcg-8 mcg capsule 1 cap PO DAILY Print Language: Kazakh
[2024-07-23 11:28] LABS: Glucometer 148 mg/dL (74-106)
--- NOTE | 2024-07-23 11:34 | US_ITS ---
The [address] [address] Patient Name: PATSY CUNNINGHAM MRN: [id number] date: 1945 Sex: M Assigned Patient Location: [place] Current Patient Location: [place] Accession/Order Number: [id number] Exam Date: 07/23/2024 11:35 Report Date: 07/23/2024 13:19 At the request of: INOCENTE RAMOS Procedure: US renal BI EXAM: US renal BI HISTORY: Hydronephrosis COMPARISON: CT abdomen pelvis 07/20/2024. Ultrasound kidneys and bladder 10/08/2021. TECHNIQUE: Ultrasound evaluation kidneys and bladder grayscale and limited color Doppler. FINDINGS: The proximal end of the ureteral stents noted in the right and left renal pelves which are mildly dilated. No renal mass or shadowing calculus seen. No perirenal fluid. Right renal length 12.6 cm, left 12.8 cm. Bladder decompressed around a suprapubic catheter. No fluid noted US/US renal BI IMPRESSION: The proximal end of the right and left ureteral stents seen within mildly dilated right and left renal pelves. Bladder decompressed without fluid. Electronically authenticated by: LUCIA FOSTER Date: 07/23/2024 13:19
[2024-07-23] MEDS: CARVEDILOL 6.25 MG TABLET PO ×2 (12:05→21:28)
--- NOTE | 2024-07-23 12:43 | P.PN_ITS ---
Progress Note: Subjective Subjective Interval history: feels the patient is somewhat weaker, patient denies, but not having much significant intake secondary to his nausea secondary to the renal failure Exam Constitutional Vital Signs, click to edit/add: Last Vital Signs Temp 98.8 F 07/23/24 08:10 Pulse 70 07/23/24 12:10 Resp 18 07/23/24 12:10 BP 141/64 07/23/24 12:10 Pulse Ox 96 07/23/24 12:10 O2 Del Method Room Air 07/23/24 12:10 Documenting provider has reviewed patient's vital signs: yes Common normals: no apparent distress Cardio Common normals: no JVD and regular rate GI Common normals: Normal to inspection, nondistended, normoactive bowel sounds present Extremity Common normals: abnormal to inspection (1+ edema today, new for him) Progress Note: Objective Labs Labs: Short CBC 07/23/24 Range/Units 06:13 WBC 11.1 H (4.0-11.0) 10^3/uL Hgb 8.2 L (14.0-18.0) g/dL Hct 25.3 L (42.0-54.0) % Plt Count 154 (150-450) 10^3/uL BMP 07/23/24 06:13 Sodium 139 Potassium 4.8 Chloride 110 H Carbon Dioxide 19.0 L BUN 66.0 H Creatinine 6.23 H* Glucose 89 Calcium 8.8 Liver Function 07/23/24 Range/Units 06:13 Total Bilirubin 0.4 (0.2-1.0) mg/dL AST 18 (15-37) U/L ALT 22 (16-63) U/L Alkaline Phosphatase 152 H (46-116) U/L Albumin 2.0 L (3.4-5.0) g/dL Progress Note: A&P Assessment and Plan (1) RINA (acute kidney injury): (2) CKD stage 3b, GFR 30-44 ml/min: (3) Catheter-associated urinary tract infection: Qualifiers: Encounter type: subsequent encounter Indwelling urinary catheter type: cystostomy catheter Qualified Code(s): T83.510D - Infection and inflammatory reaction due to cystostomy catheter, subsequent encounter; N39.0 - Urinary tract infection, site not specified (4) Leukocytosis: Qualifiers: Leukocytosis type: leukemoid reaction Qualified Code(s): D72.823 - Le ukemoid reaction (5) Lactic acidosis: (6) Orthostatic dizziness: (7) Hydroureteronephrosis: (8) Diabetes: Qualifiers: Chronic kidney disease stage: stage 3 (moderate) Chronic kidney disease stage 3 subtype: stage 3b (GFR 30-44) Diabetes mellitus complication detail: with chronic kidney disease Diabetes mellitus complication status: with kidney complications Diabetes mellitus 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 insulin 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: with senior living use Diabetes mellitus type: type 2 Qualified Code(s): E11.22 - Type 2 diabetes mellitus with diabetic chronic kidney disease; N18.32 - Chronic kidney disease, stage 3b; Z79.4 - skilled nursing (current) use of insulin (9) Benign prostatic hyperplasia: Qualifiers: Lower urinary tract symptom detail: urinary obstruction Lower urinary tract symptom presence: symptoms present Qualified Code(s): N40.1 - Benign prostatic hyperplasia with lower urinary tract symptoms; N13.8 - Other obstructive and reflux uropathy Plan RINA (acute kidney injury): Baseline creatinine earlier this year was 1.7, higher today at 6.2. Discussed case with urology and medical hospitalist, because potassium was normal and making urine they wanted to kind to hold off for another day since no procedure will be completed but needs continued management. CKD stage 3b, GFR 30-44 ml/min: Baseline creatinine 1.7-see above Catheter-associated urinary tract infection with leukocytosis and lactic acidosis and bandemia consistent with sepsis: Continue with current antibiotic, final culture pending Hydroureteronephrosis: Patient already with stents and suprapubic catheter, this is still likely deteriorating his kidney function, patient may need percutaneous nephrostomy tubes. Discussed case with [facility] and working on transfer Diabetes: Continue with current treatment plan, adjust insulin sliding scale as needed Benign prostatic hyperplasia: Continue with current treatment plan Iron deficiency anemia as well as anemia of chronic kidney disease-monitor daily Hyponatremia on admission-improved Elevated liver function test likely secondary to the renal failure-monitor daily Elevated high-sensitivity troponin and BNP likely secondary to the sepsis. L Admission status: Patient with acute renal failure as well as catheter associated urinary tract infection, worsening creatinine, medically necessary treatment will span 2 midnights. Inpatient status. Urinary Catheter Management Urinary Catheter Management Suprapubic: Cath placed during this visit: no
[2024-07-23] MEDS: DARBEPOETIN ALFA 25 MCG/ML VIAL 10 MCG SUBQ (13:42)
[2024-07-23 16:13] LABS: Glucometer 154 mg/dL (74-106)
[2024-07-23 21:14] LABS: Glucometer 170 mg/dL (74-106)
[2024-07-23] MEDS: ATORVASTATIN CALCIUM 20 MG TABLET PO (21:28)
[2024-07-23] MEDS: INSULIN GLARGINE 300 UNIT/3 ML INSULN.PEN 25 UNIT SQ (21:28)
[2024-07-23] MEDS: CEFTAZIDIME 1,000 MG in 0.9 % SODIUM CHLORIDE 50 ML 100 MG IV (21:28)
[2024-07-23] MEDS: INSULIN ASPART 300 UNIT/3 ML PEN SUBQ (21:28)
[2024-07-24] VITALS (12 sets, daily range): BP systolic 132–150; BP diastolic 54–67; PULSE 55–67; TEMP 36.6–36.9; O2SAT 94–97
[2024-07-24] MEDS: LACTATED RINGER'S SOLUTION 1,000 ML 60 ML IV (06:04)
[2024-07-24] MEDS: HEPARIN SODIUM (PORCINE) 5,000 UNIT/ML VIAL 5000 UNIT SUBQ (06:04)
[2024-07-24 06:52] LABS: Basophils Percent Auto 0.3 % (0.2-2.0); Eosinophils Absolute Auto 0.5 10^3/uL (0.0-0.7); Eosinophils Percent Auto 5.9 % (0.9-7.0); Hematocrit 24.3 % (42.0-54.0); Hemoglobin 7.7 g/dL (14.0-18.0); Immature Granulocytes Abs Auto 0.05 10^3/uL (0.00-0.03); Immature Granulocytes Pct Auto 0.7 % (0.0-0.5); Lymphocytes Absolute Auto 0.9 10^3/uL (1.2-3.8); Lymphocytes Percent Auto 11.8 % (20.5-60.0); Mean Corpuscular HGB Conc 31.7 g/dL (29.9-35.2); Mean Corpuscular Hemoglobin 34.5 pg (25.9-34.0); Mean Platelet Volume 9.9 fL (9.5-13.5); Monocytes Absolute Auto 0.6 10^3/uL (0.3-0.8); Monocytes Percent Auto 8.3 % (1.7-12.0); Neutrophils Absolute Auto 5.6 10^3/uL (1.4-6.5); Platelet Count 138 10^3/uL (150-450); Red Blood Count 2.23 10^6/uL (4.70-6.10); Red Cell Distribution Width 15.4 % (11.0-15.0); White Blood Count 7.6 10^3/uL (4.0-11.0)
[2024-07-24 07:16] LABS: Alanine Aminotransferase 27 U/L (16-63); Albumin Globulin Ratio 0.6; Alkaline Phosphatase 168 U/L (46-116); Anion Gap 15.4; Aspartate Amino Transferase 19 U/L (15-37); BUN Creatinine Ratio 11.3; Bilirubin Total 0.3 mg/dL (0.2-1.0); Calcium 8.7 mg/dL (8.5-10.1); Carbon Dioxide 19.6 mmol/L (21.0-32.0); Chloride 111 mmol/L (98-107); Estimated GFR (African America 10 (>=60 mL/min/1.73m^2); Estimated GFR (Non-African Ame 8 (>=60 mL/min/1.73m^2); Globulin 3.6 g/dL; Glucose 78 mg/dL (74-106); Sodium 141 mmol/L (136-145); Total Protein 5.6 g/dL (6.4-8.2)
--- NOTE | 2024-07-24 08:47 | P.DS_ITS ---
DS: Providers Provider Date of admission: 07/20/24 17:08 Primary care physician: HELEN OCHOA Consults: 07/20/24 15:00 Occupational Therapy Eval and Treat Routine Reason for consultation: Ambulatory dysfunction/weakness Physical Therapy Eval and Treat Routine Reason for consultation: Ambulatory dysfunction/weakness DS: Diagnosis Discharge Diagnosis (1) RINA (acute kidney injury): (2) CKD stage 3b, GFR 30-44 ml/min: (3) Catheter-associated urinary tract infection: Qualifiers: Indwelling urinary catheter type: cystostomy catheter Encounter type: subsequent encounter Qualified Code(s): T83.510D - Infection and inflammatory reaction due to cystostomy catheter, subsequent encounter; N39.0 - Urinary tract infection, site not specified (4) Leukocytosis: Qualifiers: Leukocytosis type: leukemoid reaction Qualified Code(s): D72.823 - Leukemoid reaction (5) Lactic acidosis: (6) Orthostatic dizziness: (7) Hydroureteronephrosis: (8) Diabetes: Qualifiers: Diabetes mellitus type: type 2 Diabetes mellitus technician terminal and repeater insulin use: with technician terminal and repeater use Diabetes mellitus complication status: with kidney complications Diabetes mellitus complication detail: with chronic kidney disease Chronic kidney disease stage: stage 3 (moderate) Chronic kidney disease stage 3 subtype: stage 3b (GFR 30-44) Qualified Code(s): E11.22 - Type 2 diabetes mellitus with diabetic chronic kidney disease; N18.32 - Chronic kidney disease, stage 3b; Z79.4 - intermediate manager (current) use of insulin (9) Benign prostatic hyperplasia: Qualifiers: Lower urinary tract symptom presence: symptoms present Lower urinary tract symptom detail: urinary obstruction Qualified Code(s): N40.1 - Benign prostatic hyperplasia with lower urinary tract symptoms; N13.8 - Other obstructive and reflux uropathy Plan RINA (acute kidney injury): Baseline creatinine earlier this year was 1.7, higher today at 6.2. Discussed case with urology and medical hospitalist, because potassium was normal and making urine they wanted to kind to hold off for another day since no procedure will be completed but needs continued management. CKD stage 3b, GFR 30-44 ml/min: Baseline creatinine 1.7-deteriorating, uncertain etiology as hydronephrosis is only mild Catheter-associated urinary tract infection with leukocytosis and lactic acidosis and bandemia consistent with sepsis: Improving as leukocytosis has resolved Hydroureteronephrosis: Only mild hydronephrosis yesterday bilaterally Diabetes: Stable Benign prostatic hyperplasia: Continue with current treatment plan Iron deficiency anemia as well as anemia of chronic kidney disease-monitor daily Hyponatremia on admission-improved Elevated liver function test likely secondary to the renal failure-monitor daily Elevated high-sensitivity troponin and BNP likely secondary to the sepsis. Admission status: Patient with acute renal failure as well as catheter associated urinary tract infection, worsening creatinine, medically necessary treatment will span 2 midnights. Inpatient status. DS: Summary Hospital Course Hospital Course: Patient was admitted with catheter associated acute UTI with significant leukocytosis, placed on IV antibiotics with good improvement, his white blood cell count is normal, however over the course of the hospitalization his renal functions continue to deteriorate, creatinine now up to 6.6 with a potassium of 5. His baseline creatinine is 1.7. Uncertain etiology, tried hydration without improvement and now having some mild peripheral edema. He does not have any edema prior to admittance. With his worsening kidney function uncertain etiology, patient will be transferred to a tertiary care facility [facility] [[email or web address]] today. Status at Discharge Overall status at discharge: patient is not back to baseline Time Spent with Patient Time attestation: Total time spent providing and/or coordinating discharge services: Time spent: greater than 30 minutes Exam Constitutional Vital Signs, click to edit/add: Last Vital Signs Temp 98.3 F 07/24/24 08:19 Pulse 60 07/24/24 08:19 Resp 18 07/24/24 08:19 BP 150/67 H 07/24/24 08:19 Pulse Ox 95 07/24/24 08:19 O2 Del Method Room Air 07/24/24 08:19 Documenting provider has reviewed patient's vital signs: yes Common normals: no apparent distress Cardio Common normals: no JVD and regular rate GI Common normals: Normal to inspection, nondistended, normoactive bowel sounds present Extremity Common normals: abnormal to inspection (1+ edema today, new for him) DS: Data Data Completed and Pending Labs on day of discharge: Labs from last 24 hours 07/24/24 07/23/24 07/23/24 06:38 21:13 16:12 WBC 7.6 RBC 2.23 L Hgb 7.7 L Hct 24.3 L MCV 109.0 H MCH 34.5 H MCHC 31.7 RDW 15.4 H Plt Count 138 L MPV 9.9 Neut % (Auto) 73.0 Lymph % (Auto) 11.8 L Lipscomb % (Auto) 8.3 Eos % (Auto) 5.9 Baso % (Auto) 0.3 Neut # (Auto) 5.6 Lymph # (Auto) 0.9 L Lipscomb # (Auto) 0.6 Eos # (Auto) 0.5 Baso # (Auto) 0.0 Abs Immat Gran (auto) 0.05 H Imm/Tot Granulo (auto) 0.7 H Sodium 141 Potassium 5.0 Chloride 111 H Carbon Dioxide 19.6 L Anion Gap 15.4 BUN 75.0 H Creatinine 6.62 H* Est GFR ( Amer) 10 L Est GFR (Non-Af Amer) 8 L BUN/Creatinine Ratio 11.3 Glucose 78 Calcium 8.7 Total Bilirubin 0.3 AST 19 ALT 27 Alkaline Phosphatase 168 H Total Protein 5.6 L Albumin 2.0 L Globulin 3.6 Albumin/Globulin Ratio 0.6 POC Glucose 170 H 154 H 07/23/24 11:27 WBC RBC Hgb Hct MCV MCH MCHC RDW Plt Count MPV Neut % (Auto) Lymph % (Auto) Lipscomb % (Auto) Eos % (Auto) Baso % (Auto) Neut # (Auto) Lymph # (Auto) Lipscomb # (Auto) Eos # (Auto) Baso # (Auto) Abs Immat Gran (auto) Imm/Tot Granulo (auto) Sodium Potassium Chloride Carbon Dioxide Anion Gap BUN Creatinine Est GFR ( Amer) Est GFR (Non-Af Amer) BUN/Creatinine Ratio Glucose Calcium Total Bilirubin AST ALT Alkaline Phosphatase Total Protein Albumin Globulin Albumin/Globulin Ratio POC Glucose 148 H Preliminary micro results at discharge 07/20/24 14:03 Blood Culture Result 2 - Preliminary Blood - Right Forearm NO GROWTH AT 36-48 HOURS. FINAL TO FOLLOW. 07/20/24 13:45 Blood Culture Result 1 - Preliminary Blood - Right Antecubital NO GROWTH AT 36-48 HOURS. FINAL TO FOLLOW. Discharge Plan Discharge Disposition: er [facility] Condition: Fair
[2024-07-24] MEDS: L. ACIDOPHILUS/L.BULGARICUS TABLET 1 TAB PO (09:10)
[2024-07-24] MEDS: B COMPLEX/FOLIC ACID SOFTGEL CAPSULE 1 CAP PO (09:10)
[2024-07-24] MEDS: DOCUSATE SODIUM 100 MG CAPSULE PO (09:11)
[2024-07-24] MEDS: ASPIRIN 81 MG TAB.CHEW PO (09:11)
[2024-07-24] MEDS: MULTIVITAMIN TABLET 1 TAB PO (09:11)
[2024-07-24] MEDS: CARVEDILOL 6.25 MG TABLET PO (09:11)
[2024-07-24] MEDS: CHOLECALCIFEROL (VITAMIN D3) 25 MCG/1,000 UNITS TABLET 50 MCG PO (09:11)
[2024-07-24] MEDS: FAMOTIDINE 20 MG TABLET PO (09:11)
[2024-07-24 11:21] LABS: Glucometer 165 mg/dL (74-106)
[2024-07-24] MEDS: INSULIN ASPART 300 UNIT/3 ML PEN SUBQ (11:38)
== END 2024-07-24 14:15 | disposition short-term general hospital (02) | DRG 698 ==
LOC: ER 15:52 → MS 17:15
PROVIDERS: Admitting Provider Family Medicine; Emergency Provider Emergency Medicine; PCP Family Medicine; Visit Provider Internal Medicine
DX: T83.510A Infection and inflammatory reaction due to cystostomy catheter, initial encounter (principal); A41.9 Sepsis, unspecified organism; N17.9 Acute kidney failure, unspecified; E87.20 Acidosis, unspecified; N39.0 Urinary tract infection, site not specified; N13.8 Other obstructive and reflux uropathy; N13.30 Unspecified hydronephrosis; E87.1 Hypo-osmolality and hyponatremia; C90.00 Multiple myeloma not having achieved remission; E86.0 Dehydration; D72.823 Leukemoid reaction; R42 Dizziness and giddiness; E11.22 Type 2 diabetes mellitus with diabetic chronic kidney disease; N18.32 Chronic kidney disease, stage 3b; Z79.4 Long term (current) use of insulin; N40.1 Benign prostatic hyperplasia with lower urinary tract symptoms; Z87.891 Personal history of nicotine dependence; Z87.440 Personal history of urinary (tract) infections; Z96.0 Presence of urogenital implants; I12.9 Hypertensive chronic kidney disease with stage 1 through stage 4 chronic kidney disease, or unspecified chronic kidney disease; Z79.82 Long term (current) use of aspirin; Z85.46 Personal history of malignant neoplasm of prostate; D50.9 Iron deficiency anemia, unspecified; R79.89 Other specified abnormal findings of blood chemistry; M06.9 Rheumatoid arthritis, unspecified; Z87.442 Personal history of urinary calculi; E11.40 Type 2 diabetes mellitus with diabetic neuropathy, unspecified
CPT/HCPCS: 36415; 74176; 76775; 80048; 80053; 81001; 82948; 83605; 85007; 85025; 85027; 85610; 87040; 87086; 94761; 96365; 96366; 96368; 97161; 97165; 97530; 97535; 99285; J0360; J0713; J0881; J1644; J2405

== ENCOUNTER 2024-10-13 14:27 | Outpatient (OUT) | payer MEDICARE, SELFPAY ==
[2024-10-13 14:48] LABS: Bilirubin Urine NEGATIVE (NEGATIVE); Blood Urine LARGE (NEGATIVE); Clarity Urine CLOUDY (CLEAR); Color Urine LT YELLOW (YELLOW); Glucose Urine UA >=1000 mg/dL (NEGATIVE); Ketones Urine NEGATIVE (NEGATIVE); Leukocyte Esterase Urine SMALL (NEGATIVE); Nitrite Urine POSITIVE (NEGATIVE); Protein Urine >=300 mg/dL (NEG/TRACE); Urobilinogen Urine 0.2 EU/dL (0.2-1.0)
== END 2024-10-13 14:28 | disposition home or self-care (01) ==
LOC: LAB 14:29
PROVIDERS: PCP Family Medicine
DX: N39.0 Urinary tract infection, site not specified (principal)
CPT/HCPCS: 81003

== ENCOUNTER 2024-10-17 08:58 | Outpatient (OUT) | payer MEDICARE, SELFPAY ==
--- NOTE | 2024-10-17 09:55 | P.GSHP_ITS ---
History of Present Illness History of Present Illness Chief complaint: ureteral stricture, hydrouretero-nephrosis Narrative: Patient presents for presurgical testing accompanied by his . The patient is well-known to me from previous PAT visits. The patient states he is scheduled for his routine ureteral stent and suprapubic tube change. He denies any changes in health history. He denies any recent illness. Patient states, I always have a UTI. Review of Systems ROS Narrative REVIEW OF SYSTEMS: Negative except as stated in HPI, ten or more systems reviewed. Constitutional: No fever, chills, weakness ENT: No sore throat or epistaxis Cardiovascular: No edema, chest pain, palpitations, or activity intolerance Respiratory: No shortness of breath, cough, or wheezing Musculoskeletal: No joint pain or swelling Gastrointestinal: No abdominal pain, constipation, diarrhea, or vomiting Neurological: No numbness, tingling, weakness, or headache Psychiatric: No mood changes [facility] Medical History (Updated 10/17/24 @ 09:[address] Horn NP) History of blood transfusion ?Z92.89 - Personal history of other medical treatment (ICD-10) Noncompliant bladder ?N31.9 - Neuromuscular dysfunction of bladder, unspecified (ICD-10) Orthostatic dizziness ?R42 - Dizziness and giddiness (ICD-10) Lactic acidosis ?E87.20 - Acidosis, unspecified (ICD-10) Leukocytosis ?D72.829 - Elevated white blood cell count, unspecified (ICD-10) Catheter-associated urinary tract infection ?T83.511A - Infection and inflammatory reaction due to indwelling urethral catheter, initial encounter (ICD-10) ?N39.0 - Urinary tract infection, site not specified (ICD-10) RINA (acute kidney injury) ?N17.9 - Acute kidney failure, unspecified (ICD-10) Acute on chronic kidney failure ?N17.9 - Acute kidney failure, unspecified (ICD-10) ?N18.9 - Chronic kidney disease, unspecified (ICD-10) Dehydration ?E86.0 - Dehydration (ICD-10) Sepsis ?A41.9 - Sepsis, unspecified organism (ICD-10) Urinary tract infection ?N39.0 - Urinary tract infection, site not specified (ICD-10) CKD stage 3b, GFR 30-44 ml/min ?N18.32 - Chronic kidney disease, stage 3b (ICD-10) Diabetes ?E11.9 - Type 2 diabetes mellitus without complications (ICD-10) Dizziness ?R42 - Dizziness and giddiness (ICD-10) Suprapubic catheter ?Z93.59 - Other cystostomy status (ICD-10) Overactive bladder ?N32.81 - Overactive bladder (ICD-10) Ureteral stricture ?N13.5 - Crossing vessel and stricture of ureter without hydronephrosis (ICD- 10) Hydroureteronephrosis ?N13.30 - Unspecified hydronephrosis (ICD-10) Prostate cancer ?C61 - Malignant neoplasm of prostate (ICD-10) Hydroureter ?N13.4 - Hydroureter (ICD-10) Hydronephrosis ?N13.30 - Unspecified hydronephrosis (ICD-10) Benign prostatic hyperplasia ?N40.0 - Benign prostatic hyperplasia without lower urinary tract symptoms (ICD-10) Arthritis ?M19.90 - Unspecified osteoarthritis, unspecified site (ICD-10) Rheumatoid arthritis ?M06.9 - Rheumatoid arthritis, unspecified (ICD-10) Neuropathy ?G62.9 - Polyneuropathy, unspecified (ICD-10) Sleep apnea ?G47.30 - Sleep apnea, unspecified (ICD-10) Nausea ?R11.0 - Nausea (ICD-10) Weakness ?R53.1 - Weakness (ICD-10) Multiple myeloma ?C90.00 - Multiple myeloma not having achieved remission (ICD-10) Sepsis ?A41.9 - Sepsis, unspecified organism (ICD-10) High cholesterol ?E78.00 - Pure hypercholesterolemia, unspecified (ICD-10) S/P extracorporeal shock wave therapy ?Z98.890 - Other specified postprocedural states (ICD-10) Urinary retention ?R33.9 - Retention of urine, unspecified (ICD-10) Dyspnea on exertion ?R06.09 - Other forms of dyspnea (ICD-10) Anemia ?D64.9 - Anemia, unspecified (ICD-10) History of blood transfusion ?Z92.89 - Personal history of other medical treatment (ICD-10) Urinary tract infection ?N39.0 - Urinary tract infection, site not specified (ICD-10) Kidney stones ?N20.0 - Calculus of kidney (ICD-10) Heartburn ?R12 - Heartburn (ICD-10) Hypertension ?I10 - Essential (primary) hypertension (ICD-10) Diabetes ?E11.9 - Type 2 diabetes mellitus without complications (ICD-10) Delayed recovery from anesthesia Surgical History (Updated 10/17/24 @ 09:[address] Horn NP) S/P ureteral stent placement (07/28/24) ?Z96.0 - Presence of urogenital implants (ICD-10) S/P cystoscopy with ureteral stent placement (06/01/24) ?Z96.0 - Presence of urogenital implants (ICD-10) H/O cystoscopy (02/03/24) ?Z98.890 - Other specified postprocedural states (ICD-10) H/O cystoscopy (06/10/23) ?Z98.890 - Other specified postprocedural states (ICD-10) S/P TURP ?Z90.79 - Acquired absence of other genital organ(s) (ICD-10) H/O foot surgery ?Z98.890 - Other specified postprocedural states (ICD-10) History of dental surgery ?Z92.89 - Personal history of other medical treatment (ICD-10) History of throat surgery ?Z98.890 - Other specified postprocedural states (ICD-10) H/O blepharoplasty ?Z98.890 - Other specified postprocedural states (ICD-10) S/P ureteral stent placement ?Z96.0 - Presence of urogenital implants (ICD-10) Stem cells transplant status ?Z94.84 - Stem cells transplant status (ICD-10) 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) History of suprapubic catheter (03/05/23) ?Z98.890 - Other specified postprocedural states (ICD-10) Status post dilation of urethral narrowing ?Z98.890 - Other specified postprocedural states (ICD-10) H/O cataract extraction ?Z98.49 - Cataract extraction status, unspecified eye (ICD-10) H/O cystoscopy (12/10/22) ?Z98.890 - Other specified postprocedural states (ICD-10) Family History (Updated 07/20/24 @ 18:54 by Mikki Hernadez) Grandfather Family history of diabetes mellitus Grandmother Family history of myocardial infarction Other Family history of cancer Family history of stroke Heart disease Social History (Updated 06/10/23 @ 12:07 by Yoselin Diaz) Within the past year, how often did you have a drink containing alcohol: never Score interpretation: A score less than 4 is consistent with normal alcohol consumption. Smoking status: Former smoker Non-prescribed substance use: denies use Highest level of school completed/degree received: high school graduate Little interest or pleasure in doing things: not at all Feeling down, depressed, or hopeless: not at all Do you think of yourself as: straight/heterosexual Gender Identity: male Meds Home Medications and Allergies Home Medications ?Medication ?Instructions ?Recorded ?Confirmed ?Type Lactobacillus acidophilus 10 100 mmu cells PO DAILY 06/01/23 10/17/24 History billion cell capsule (Probiotic) aspirin 81 mg capsule 81 mg PO DAILY 06/01/23 10/17/24 History atorvastatin 20 mg tablet 20 mg PO .QHS 06/01/23 10/17/24 History cholecalciferol (vitamin D3) 50 2,000 unit PO DAILY 06/01/23 10/17/24 History mcg (2,000 unit) capsule docusate sodium 100 mg capsule 100 mg PO .QHS 06/01/23 10/17/24 History (Stool Softener) famotidine 20 mg tablet 20 mg PO .QHS 06/01/23 10/17/24 History insulin glargine 100 unit/mL (3 20 unit subcut QPM 06/01/23 10/17/24 History mL) subcutaneous pen (Lantus Solostar U-100 Insulin) insulin lispro 100 unit/mL 1 - 11 sliding scale dose subcut 06/01/23 10/17/24 History subcutaneous pen TIDWM iron bis glycinate lashon 28 mg 1 cap PO DAILY 06/01/23 10/17/24 History iron-vit C 60 mg-FA 400 mcg-B12 8mcg cap (Gentle Iron) oxybutynin chloride 10 mg 10 mg PO QPM 06/01/23 10/17/24 History tablet,extended release 24 hr cyanocobalamin (vitamin B-12) 1,000 mcg PO DAILY 07/21/24 10/17/24 History 1,000 mcg tablet (Vitamin B-12) darbepoetin raymond in polysorbat 10 10 mcg subcut .EVERY OTHER WEEK 07/21/24 10/17/24 History mcg/0.4 mL in polysorbate injection syringe (Aranesp) insulin lispro 100 unit/mL 8 unit subcut TIDWM 07/21/24 10/17/24 History subcutaneous pen acetaminophen 500 mg capsule 500 mg PO Q6H PRN pain 10/17/24 10/17/24 History cranberry extract 500 fc-o-wbjnkzx 2 tab PO DAILY 10/17/24 10/17/24 History 50 mg chewable tablet empagliflozin 10 mg tablet 10 mg PO DAILY 10/17/24 10/17/24 History (Jardiance) Allergies Allergy/AdvReac Type Severity Reaction Status Date / Time lisinopril Allergy Cough Verified 10/17/24 09:26 [email or web address] (From Myrbetriq) Allergy Rash Verified 10/17/24 09:26 gabapentin AdvReac not Verified 10/17/24 09:26 effective Exam Narrative Exam Narrative: Constitutional: Awake, alert, comfortable, well-appearing, nontoxic, interactive, vital signs as charted Head: Normocephalic, atraumatic Neck: Supple, normal appearance, normal range of motion, no meningeal signs, no lymphadenopathy Respiratory: No respiratory distress, breath sounds clear Cardiovascular: Regular rate and rhythm, strong and regular heart tones Abdomen: Nontender, normal bowel sounds, soft, no CVA tenderness Musculoskeletal: Ambulates with cane, no swelling or edema Skin: No rashes or induration, no lesions, only visible skin inspected Neuro: No neurological deficits, normal sensation Psychiatric: Oriented ?3, normal affect Assessment and Plan Assessment and Plan (1) Noncompliant bladder: (2) Ureteral stricture: (3) Suprapubic catheter: (4) Hydroureter: (5) Hydronephrosis: Plan Bilateral ureteral stent exchange, suprapubic tube change, cystoscopy scheduled with Dr. Cortez November 09, 2024.
[2024-10-17 10:21] LABS: Basophils Percent Auto 0.3 % (0.2-2.0); Eosinophils Absolute Auto 0.3 10^3/uL (0.0-0.7); Eosinophils Percent Auto 3.7 % (0.9-7.0); Hemoglobin 10.9 g/dL (14.0-18.0); Immature Granulocytes Abs Auto 0.01 10^3/uL (0.00-0.03); Immature Granulocytes Pct Auto 0.1 % (0.0-0.5); Lymphocytes Absolute Auto 1.3 10^3/uL (1.2-3.8); Lymphocytes Percent Auto 17.2 % (20.5-60.0); Mean Corpuscular Volume 106.1 fL (80.0-94.0); Monocytes Absolute Auto 0.5 10^3/uL (0.3-0.8); Monocytes Percent Auto 7.3 % (1.7-12.0); Neutrophils Absolute Auto 5.2 10^3/uL (1.4-6.5); Neutrophils Percent Auto 71.4 % (43.0-75.0); Platelet Count 165 10^3/uL (150-450); Red Blood Count 3.11 10^6/uL (4.70-6.10); Red Cell Distribution Width 15.3 % (11.0-15.0); White Blood Count 7.3 10^3/uL (4.0-11.0)
[2024-10-17 10:23] LABS: Anion Gap 14.8; BUN Creatinine Ratio 10.1; Calcium 9.4 mg/dL (8.5-10.1); Carbon Dioxide 22.3 mmol/L (21.0-32.0); Chloride 106 mmol/L (98-107); Estimated GFR (African America 29 (>=60 mL/min/1.73m^2); Estimated GFR (Non-African Ame 24 (>=60 mL/min/1.73m^2); Glucose 221 mg/dL (74-106); Potassium 4.1 mmol/L (3.5-5.1); Sodium 139 mmol/L (136-145)
[2024-10-17 10:30] LABS: INR 0.97; Prothrombin Time 10.3 sec (9.0-11.6)
[2024-10-17 14:49] LABS: Bilirubin Urine SMALL (NEGATIVE); Blood Urine LARGE (NEGATIVE); Color Urine DK. BROWN (YELLOW); Glucose Urine UA >=1000 mg/dL (NEGATIVE); Ketones Urine NEGATIVE (NEGATIVE); Leukocyte Esterase Urine MODERATE (NEGATIVE); Nitrite Urine POSITIVE (NEGATIVE); Protein Urine >=300 mg/dL (NEG/TRACE); Specific Gravity Urine 1.015 (1.005-1.025)
[2024-10-17 14:53] LABS: Clarity Urine CLOUDY (CLEAR); Urine Microscopic Indicated YES
[2024-10-17 15:10] LABS: RBC Urine >100 #/HPF (0-2); WBC Urine 50-75 #/HPF (NONE SEEN)
[2024-10-17 15:11] LABS: Bacteria Urine LARGE #/HPF (NONE SEEN); Mucus Urine TRACE (NONE SEEN); Squamous Epithelial Cell Urine RARE #/LPF (NONE/RARE)
[2024-10-17 15:12] LABS: Cast Seen? NONE SEEN #/LPF (NONE SEEN); Crystals Seen? None Seen #/HPF (None Seen); Urine Culture Indicated YES-FRMC
== END 2024-10-17 08:59 | disposition home or self-care (01) ==
LOC: PST 09:02
PROVIDERS: PCP Family Medicine; Visit Provider Urology
DX: Z01.818 Encounter for other preprocedural examination (principal); Z01.812 Encounter for preprocedural laboratory examination; N13.1 Hydronephrosis with ureteral stricture, not elsewhere classified
CPT/HCPCS: 36415; 80048; 81001; 85025; 85610; 85730; 87086; 87150; 87186; G0463

== ENCOUNTER 2024-11-09 13:31 | Day surgery (SDC) | payer MEDICARE, SELFPAY ==
[2024-10-17 09:49] VITALS: BP 144/75; PULSE 72; TEMP 36.2; O2SAT 97; BMI 30.5
[2024-11-09] VITALS (10 sets, daily range): BP systolic 114–155; BP diastolic 69–83; PULSE 69–99; TEMP 36.1–36.3; O2SAT 95–98; BMI 28.9
[2024-11-09 13:57] LABS: Glucometer 309 mg/dL (74-106)
[2024-11-09] MEDS: LACTATED RINGER'S SOLUTION 1,000 ML 50 ML IV (14:07)
--- NOTE | 2024-11-09 14:21 | PC.NURSE ---
Reported elevated blood sugar to Dr. Beal at this time. No orders at this time.
[2024-11-09] MEDS: LINEZOLID IN DEXTROSE 5% 600 MG/300 ML PIGGYBACK 300 MG IV (15:00)
--- NOTE | 2024-11-09 15:48 | P.URON_ITS ---
Urology Surgery Operative Note Operative Note Procedure Date: 11/09/24 Time Out Performed: yes Pre-op Diagnosis: 1. Bilateral hydronephrosis with ureteral stricture 2. Chronic bilateral ureteral stents 3. Chronic suprapubic tube for noncompliant bladder Post-op Diagnosis: same as pre-op Procedures performed: 1. Cystoscopy, bilateral retrograde pyelogram, bilateral ureteral stent exchange 2. Suprapubic tube exchange Anesthesia: General-LMA (Dr. Beal) Primary Surgeon: Vesna Cortez Complications: none Estimated blood loss (mL): 0 Findings: Non-obstructing prostatic urethra. Elevated, fixed bladder neck. Extremely small capacity bladder, multiple diverticuli, inflammation near stent 3+ trabeculations. -Urine clear in bladder, white debris filled urine after stents removed - sent for culture -BL UO patulous, superiorly displaced, BL 7Frx 26cm JJ stents in appropriate position, not encrusted. -R RPG Mild hydroureteronephrosis to mid ureter, narrow distally -L RPG moderate hydroureteronephrosis down to bladder -New 16 Fr SPT catheter placed (solomon tip used due to availability) Specimens: urine for culture Drains: 16Fr gunn with 10 cc in balloon, 7Fr x 26 cm JJ bilateral ureteral stents Indications for Procedures: 79 year old male with complex urologic history including CKD and bilateral hydroureteronephrosis due to distal ureteral stricture from noncompliant bladder managed with chronic indwelling stents and SPT, last exchanged 07/28/24 presents for routine stent and SPT exchange. After discussion of risks/benefits of management options, he elected to proceed to the OR for above procedures. Risks were discussed including but not limited to bleeding, pain, infection, damage to surrounding structures, inability to treat the stone/place a stent, and need for additional procedures. The patient understands the stent is not permanent and needs to be removed or exchanged within 4 months to prevent encrustation, infection, invasive procedures and/or permanent renal damage. Detailed description of Procedure: After informed consent was obtained, the patient was brought to the operating room and transferred onto the operating table in supine position. Sequential compression devices were placed on bilateral lower extremities. The patient received the appropriate dose of preoperative IV antibiotics (linezolid based on recent culture) and general anesthesia LMA was induced. They were positioned in modified dorsolithotomy with the appropriate pressure points padded, prepped, and draped in the usual sterile fashion for this procedure. An operative safety timeout was performed confirming the patient's identity, laterality and procedure, and all present agreed to proceed. SPT was clamped. A well-lubricated 22 Amharic rigid cystoscope with 30 degree lens was inserted into the patient's urethra and bladder with mild difficulty due to elevated, fixed bladder neck. A full cystoscopy was performed with findings as above. There were no bladder tumors, lesions, stones. Bilateral ureteral orifices were superiorly displaced and widely patulous. I turned my attention to the left ureteral orifice and inserted a hybrid wire alongside stent up to renal pelvis, removed the indwelling stent from bladder under fluoroscopy. A 6Fr open ended catheter was inserted next to the wire and dilute contrast was injected for retrograde pyelogram with findings as above. The catheter was removed. A 7Fr x 26 cm JJ length ureteral stent was advanced over the wire, noting adequate curl in the renal pelvis and bladder on fluoroscopic and direct visualization. Return of white cloudy urine. Attention was turned to the right and the stent was brought to the meatus, wire inserted through stent up to renal pelvis, and wire removed without difficulty. Open ended catheter advanced over wire followed by dilute contrast for retrograde pyelogram as above. A 7Fr x 26 cm JJ length ureteral stent was advanced over the wire, noting adequate curl in the renal pelvis and bladder on fluoroscopic and direct visualization. Return of white cloudy urine. Urine sent for culture. The bladder was filled and the prior suprapubic tube was removed. A new 16r solomon tip catheter (due to availability) was inserted into the bladder, return of fluid, 10 cc in balloon, placed to gravity drainage. SPT in appropriate position confirmed on cystoscopy. The bladder was drained and cystoscope was removed. The patient tolerated the procedure well without complication. The patient was awakened from anesthesia and sent to the PACU in stable condition. Plan: Discharge home. Follow up in 1-2 wks to review BMP from PCP and set up gentamicin bladder irrigations. Cont office visit every 3 weeks for routine SPT exchange. Next BL stent exchange in 4 months, may be done earlier if pt develops UTIs, as his kidneys released infected urine after stents removed. Urinary Catheter Management Urinary Catheter Management Suprapubic: Cath placed during this visit: no
[2024-11-09] MEDS: IOHEXOL 240 MG/ML - 10 ML VIAL INJ (15:52)
[2024-11-09 17:33] LABS: Clarity Urine CLOUDY (CLEAR); Color Urine PINK (YELLOW)
[2024-11-09 17:34] LABS: Bilirubin Urine LARGE (NEGATIVE); Blood Urine LARGE (NEGATIVE); Glucose Urine UA 250 mg/dL (NEGATIVE); Ketones Urine NEGATIVE (NEGATIVE); Leukocyte Esterase Urine MODERATE (NEGATIVE); Nitrite Urine NEGATIVE (NEGATIVE); Protein Urine 300 mg/dL (NEG/TRACE); Specific Gravity Urine 1.015 (1.005-1.025); Urine Microscopic Indicated YES; Urobilinogen Urine N EU/dL (0.2-1.0)
[2024-11-09 17:35] LABS: WBC Urine 75-100 #/HPF (NONE SEEN)
[2024-11-09 17:36] LABS: Bacteria Urine MODERATE #/HPF (NONE SEEN); Cast Seen? SEEN #/LPF (NONE SEEN); Crystals Seen? None Seen #/HPF (None Seen); Mucus Urine NONE SEEN (NONE SEEN); Squamous Epithelial Cell Urine RARE #/LPF (NONE/RARE); Urine Culture Indicated YES-FRMC
== END 2024-11-09 17:14 | disposition home or self-care (01) ==
PROVIDERS: PCP Family Medicine; Visit Provider Urology
PROC: (CPT 51705; principal; 2024-11-09 13:55)
DX: N13.1 Hydronephrosis with ureteral stricture, not elsewhere classified (principal); N32.89 Other specified disorders of bladder; Z87.440 Personal history of urinary (tract) infections; N31.9 Neuromuscular dysfunction of bladder, unspecified; Z87.891 Personal history of nicotine dependence; Z79.4 Long term (current) use of insulin; Z79.84 Long term (current) use of oral hypoglycemic drugs; Z94.81 Bone marrow transplant status; G47.33 Obstructive sleep apnea (adult) (pediatric); E78.5 Hyperlipidemia, unspecified; I10 Essential (primary) hypertension; M06.9 Rheumatoid arthritis, unspecified; E11.40 Type 2 diabetes mellitus with diabetic neuropathy, unspecified
CPT/HCPCS: 51705; 52332; 36415; 74420; 81001; 82948; 87086; 87106; 99999; J0131; J1100; J2020; J2405; J2704; J3010; Q9966

== ENCOUNTER 2025-04-19 10:56 | Emergency (ER) | payer MEDICARE, SELFPAY ==
[2025-04-19 11:12] VITALS: BP 146/107; PULSE 89; TEMP 37; O2SAT 96; BMI 27.9
[2025-04-19] MEDS: LIDOCAINE HCL 1% PF 20 MG/2 ML VIAL INJ (11:41)
--- OUTSIDE RECORDS SUMMARY | 2025-04-19 14:32 | XMS_ITS | CCD ---
Author Organization [facility] Care Team Providers Care Resource Agent Name Role Phone HELEN HEATH Primary Care Physician Price Crain Unavailable MD Helen Heath Attending Provider [phone] NO FAMILY, PHYSICIAN Primary Care Provider Unava ilable MD Helen Heath Primary Care Provider MD Brook Huddleston Attending Provider MD Price Crain Attending Provider [phone] MD Helen Heath Primary Care Provider MD Brook Huddleston Attending Provider MD Helen Heath Primary Care Provider MD Price Crain Attending Provider [phone] MD Brook Huddleston Attending Provider MD Helen Heath Primary Care Provider MD Helen Heath Primary Care Provider MD Brook Huddleston Attending Provider MD Helen Heath Primary Care Provider MD Brook Huddleston Attending Provider [phone] MD Orquidea Cortez Attending Provider MD Price Crain Referring Provider MD Helen Heath Primary Care Provider [phone] MD Brook Huddleston Attending Provider MD Brook Huddleston Attending Provider [phone] MD Helen Heath Primary Care Provider MD Orquidea Cortez Attending Provider MD Price Crain Referring Provider MD Helen Heath Other Provider MD Brook Huddleston Attending Provider MD Helen Heath Attending Provider Dr. Helen Heath [facility] MD QUIQUE Mosley Admitting Unavailable MD QUIQUE HALL Attending Unavailable Don, Dr. Cervantes [facility] MD QUIQUE Mosley Admitting Unavailable MD QUIQUE HALL Attending Unavailable Don, Dr. Helen Perez [facility] BROOK Vargas Attending Unavailable Don, Dr. Cervantes Gonzalo [facility] BROOK Vargas Attending Unavailable Don, Dr. Helen Perez [facility] Ramesh Lyman Attending Unavailable Ramesh Green Referring Unavailable Don, Dr. Cervantes [facility] MD QUIQUE Mosley Admitting Unavailable MD QUIQUE HALL Attending Unavailable WILFREDO VANESSA Attending Unavailabl e Don, Dr. Helen Perez [facility] MD Brook Vargas Attending Provider MD Brook Huddleston Attending Provider [phone] MD Brook Huddleston Attending Provider RALPHE, ORQUIDEA M Admitting Unavailable DR HELEN HEATH Primary Care Unavailable LUE, ORQUIDEA M Attending Unavailable Chad Quintero Consulting Unavailable RALPHE, ORQUIDEA M Consulting Unavailable VANDANA Cartwright, DR PATSY Payne Admitting Unavaila daisy HEATH, DR CEVRANTES Primary Care Unavailable VANDANA Cartwright, DR PATSY Payne Attending Unavaila daisy Cartwright, DR PATSY Payne Consulting Unavaila ble KATINA PATEL Consulting Unavailable DON, DR CERVANTES Consulting Unavailable AMANDA, KATINA Consulting Unavailable RALPHE, ORQUIDEA M Attending Unavailable DR HELEN HEATH Primary Care Unavailable LUE, ORQUIDEA M Admitting Unavailable LUE, ORQUIDEA M Consulting Unavailable DR HELEN HEATH Primary Care Unavailable LUE, ORQUIDEA M Consulting Unavailable LUE, ORQUIDEA M Attending Unavailable LUE, ORQUIDEA M Admitting Unavailable LUE, ORQUIDEA M Admitting Unavailable LUE, ORQUIDEA M Consulting Unavailable DON, DR CERVANTES Primary Care Unavailable LUE, ORQUIDEA M Attending Unavailable VANDANA Cartwright, DR PATSY Payne Admitting Unavaila ble DON, DR CERVANTES Primary Care Unavailable YOMAIRA, DR CHAD Lawson Consulting Unavailable VANDANA Cartwright, DR PATSY Payne Attending Unavaila daisy HUDDLESTON, DR BROOK Marrero Consulting Unavailable VANDANA Cartwright, DR PATSY Payne Consulting Unavaila ble AGUBOSIM, JUNAID Consulting Unavailable DORKOSKIE, FEDE Consulting Unavailable LUE, ORQUIDEA M Consulting Unavailable DON, DR CERVANTES Primary Care Unavailable LUE, ORQUIDEA M Attending Unavailable LUE, ORQUIDEA M Admitting Unavailable SAM, LENNOX Consulting Unavailable LUIS MANUEL RODRIGUEZ Consulting Unavailable DON, DR CERVANTES Primary Care Unavailable VANDANA Cartwright, DR PATSY Payne Attending Unavaila ble VANDANA Cartwright, DR PATSY Payne Admitting Unavaila ble LUE, ORQUIDEA M Admitting Unavailable HEATH, DR CERVANTES Primary Care Unavailable LUE, ORQUIDEA M Attending Unavailable YOMAIRA, DR CHAD Lawson Consulting Unavailable PATEL, KATINA Consulting Unavailable LUE, ORQUIDEA M Consulting Unavailable DON, DR CERVANTES Primary Care Unavailable LUE, ORQUIDEA M Consulting Unavailable LUE, ORQUIDEA M Attending Unavailable LUE, ORQUIDEA M Admitting Unavailable SAM, LENNOX Consulting Unavailable LUE, ORQUIDEA M Admitting Unavailable LUE, ORQUIDEA M Consulting Unavailable DON, DR CERVANTES Primary Care Unavailable LUE, ORQUIDEA M Attending Unavailable SOLO, GAIL Consulting Unavailable GEMBUS, LENNOX Consulting Unavailable DON, DR CERVANTES Primary Care Unavailable DC, GINNY Consulting Unavailable DC, GINNY Attending Unavailable DC, GINNY Admitting Unavailable MD Brook Huddleston Attending Provider [phone] Unavailable Primary Care Provider Unavailwilian Heath MD, Helen Perez Primary Care Provider MD Helen Heath Primary Care Provider [phone] MD Helen Heath Attending Provider [phone] MD Orquidea Cortez Attending Provider MD Price Crain Attending Provider MD Brook Huddleston Attending Provider [phone] MD Helen Heath Primary Care Provider MD Helen Heath Attending Provider [phone] MD Brook Huddleston Attending Provider MD Orquidea Cortez Attending Provider [phone] MD Helen Heath Primary Care Provider [phone] MD Helen Heath Primary Care Provider MD Orquidea Cortez Attending Provider [phone] MD Price Crain Attending Provider MD Brook Huddleston Attending Provider Unavailable Primary Care Provider Unavailabl e MD Helen Heath Primary Care Provider MD Orquidea Cortez Attending Provider [phone] MD Brook Huddleston Attending Provider MD Helen Heath Primary Care Provider [phone] MD Price Crain Attending Provider MD Brook Huddleston Attending Provider MD Helen Heath Attending Provider Orquidea Cortez Attending Unavailable Makayla Damian Attending Unavailable Makayla Damian Admitting Unavailable MD Brook Huddleston Attending Provider MD Ramesh Seals Emergency Provider DO Clarence Miller Admit Provider DO Clarence Miller Attending Provider MD Price Crain Other Provider MD Delmar Wilburn Other Provider [phone] MD Helen Heath Primary Care Provider Orquidea Cortez Attending Unavailable Orquidea Cortez Attending Unavailable Santi SCHWARTZ Attending Unavailable Orquidea Cortez Attending Unavailable Santi SCHWARTZ Admitting Unavailable Santi SCHWARTZ Attending Unavailable Orquidea Cortez Attending Unavailable Orquidea Cortez Admitting Unavailable Orquidea Cortez Attending Unavailable Lue, Orquidea M. Admitting Unavailable Lue, Orquidea M. Attending Unavailable Lue, Orquidea M. Attending Unavailable Lue, Orquidea M. Attending Unavailable Lue, Orquidea M. Attending Unavailable Lue, Orquidea M. Attending Unavailable SCHWARTZ, Santi R Attending Unavailable SCHWARTZ, Santi R Attending Unavailable Lue, Orquidea M. Attending Unavailable SCHWARTZ, Santi R Attending Unavailable KEN HELTON Attending Unavailable Lue, Orquidea M. Attending Unavailable SCHWARTZ, Santi R Attending Unavailable Jose BURROWS Attending Unavailable Lue, Orquidea M. Admitting Unavailable Lue, Orquidea M. Attending Unavailable Galea, Nancie J Admitting Unavailable Galea, Nancie J Attending Unavailable Lue, Orquidea M. Attending Unavailable MD Helen Heath Primary Care Provider MD Brook Huddleston Attending Provider MD Orquidea Cortez Attending Provider MD Helen Heath Other Provider MD Price Crain Attending Provider MD Brook Huddleston Attending Provider [phone] MD Brook Huddleston Attending Provider [phone] Orzech, Makayla X Attending Unavailable Orzech, Makayla X Admitting Unavailable Orzech, Makayla X Attending Unavailable MD Helen Heath Primary Care Provider MD Orquidea Cortez Attending Provider [phone] MD Brook Huddleston Attending Provider [phone] KENNETH Smith Emergency Provider MD Mayda Matthews Admit Provider [phone] MD Mayda Matthews Attending Provider MD Domonique Rahman Other Provider MD Orquidea Cortez Other Provider Orquidea Cortez Attending Unavailable Lue, Orquidea M. Attending Unavailable Orzech, Makayla X Attending Unavailable Orzech, Makayla X Attending Unavailable Orzech, Makayla X Admitting Unavailable Orzech, Makayla X Attending Unavailable Kontak, Delmar A Referring Unavailable Delmar Wilburn Attending Unavailable Orquidea Cortez Attending Unavailable MD Domonique Rahman Attending Provider Helen Heath MD Primary Care Provider Orquidea Cortez MD Attending Provider [phone] Dong Smith PA-C Emergency Provider [phone] Mayda Matthews MD Admit Provider Mayda Matthews MD Attending Provider Josiah RICKS, Domonique Other Provider Orquidea Cortez MD Other Provider Domonique Rahman MD Attending Provider [phone] Price Crain MD Attending Provider [phone] Brook Huddleston MD Attending Provider [phone] FRANKLYN LAU Referring Unavailable ZENZ, YONATHAN Referring Unavailable FAWWAD, PHELAN Referring Unavailable STEW, CRIS Admitting Unavailable SAY GRUBER Attending Unavailable MARVIN COVINGTON Referring Unavailable EKWENNA, OBI Referring Unavailable Orzech, Makayla X Attending Unavailable Orzech, Makayla X Attending Unavailable Orzech, Makayla X Attending Unavailable Orzech, Makayla X Admitting Unavailable Orquidea Cortez Attending Unavailable Orquidea Cortez Referring Unavailable Orzech, Makayla X Attending Unavailable Diego Orquidea M. Attending Unavailable KENNETH HELTON Attending Unavailab le Orquidea Cortez Attending Unavailable Orzech, Makayla X Attending Unavailable Orquidea Cortez Attending Unavailable Orzech, Makayla X Attending Unavailable Orquidea Cortez Attending Unavailable Orzech, Makayla X Attending Unavailable Orzech, Makayla X Attending Unavailable Helen Heath MD Primary Care Provider [phone] Price Crain MD Attending Provider Brook Huddleston MD Attending Provider [phone] Brook Huddleston MD Attending Provider Helen Heath MD Primary Care Provider Price Crain MD Attending Provider Brook Huddleston MD Attending Provider Orquidea Cortez MD Attending Provider Brook Huddleston MD Attending Provider [phone] Helen Heath MD Attending Provider [phone] Orzech Makayla X Attending Unavailable Orzech, Makayla X Attending Unavailable Orzech, Makayla X Admitting Unavailable Orquidea Cortez Attending Unavailable Santi SCHWARTZ Attending Unavailable Orzech, Makayla X Admitting Unavailable Orzech, Makayla X Attending Unavailable Orquidea Cortez Attending Unavailable Shadia, Pratima Attending Unavailable Shadia, Pratima Attending Unavailable Brook Huddleston MD Attending Provider Helen Heath MD [facility] Care Provider Price Crain MD Attending Provider [phone] ShadiaPratima Attending Unavailable Shadia, Pratima Admitting Unavailable Shadia, Pratima Attending Unavailable Helen Heath MD [facility] Care Provider Helen Heath MD Attending Provider Orquidea Cortez MD Attending Provider [phone] Price Crain MD Attending Provider Brook Huddleston MD Attending Provider Shadia Pratima Attending Unavailable Shadia, Pratima Attending Unavailable Shadia, Pratima Attending Unavailable Shadia, Pratima Admitting Unavailable Helen Heath MD Primary Care Provider Shadia, Pratima Admitting Unavailable Shadia, Pratima Attending Unavailable Lue, Orquidea MChay Attending Unavailable Shadia, Pratima Attending Unavailable Shadia, Pratima Attending Unavailable Lue, Orquidea M. Referring Unavailable Lue, Orquidea M. Admitting Unavailable Lue, Orquidea M. Attending Unavailable Lue, Orquidea M. Referring Unavailable Lue, Orquidea M. Admitting Unavailable Lue, Orquidea M. Attending Unavailable Lue, Orquidea M. Admitting Unavailable Lue, Orquidea M. Attending Unavailable Lue, Orquidea M. Referring Unavailable TEAGAN COTTON Referring Unavailable HELEN HEATH GONZALO Primary Care Unavailabl e Lue, Orquidea M. Attending Unavailable Lue, Orquidea M. Attending Unavailable Pratima Reno Attending Unavailable Lue, Orquidea M. Attending Unavailable Helen Heath MD Primary Care Provider Brook Huddleston MD Attending Provider Carito Martell PA-C Attending Provider Orquidea Cortez MD Other Provider Helen Heath Primary [facility] Unavailable Helen Heath Attending Unavailable Helen Heath Admitting Unavailable Helen Heath Primary Care Unavailable Lue, Orquidea M Admitting Unavailable Lue, Orquidea M Attending Unavailable Lue, Orquidea M Attending Unavailable Lue, Orquidea M Admitting Unavailable Lue, Orquidea M Attending Unavailable Lue, Orquidea M Admitting Unavailable HeathHelen love Primary Care Unavailable Lue, Orquidea M Attending Unavailable Lue, Orquidea M Admitting Unavailable Heath Helen Primary Care Unavailable Brook Huddleston Admitting Unavailable Brook Huddleston Attending Unavailable Bakhous, Aziz Attending Unavailable Helen Heath Primary Care Unavailable Bakhous, Aziz Admitting Unavailable Taweel, Helwa N Admitting Unavailable Taweel, Helwa N Attending Unavailable Don, Helen Primary Care Unavailable Lue, Orquidea M Consulting Unavailable Josiah, Domonique Admitting Unavailable Josiah, Domonique Attending Unavailable Helen Heath Primary Care Unavailable Bakhous, Aziz Admitting Unavailable Bakhous, Aziz Attending Unavailable Helen Heath Primary Care Unavailable Bakhous, Aziz Attending Unavailable Don Helen Primary Care Unavailable Bakhous, Aziz Admitting Unavailable Daromar, Obaydah M Admitting Unavailable Daromar, Obaydah M Attending Unavailable Josiah, Domonique Consulting Unavailable Helen Heath Primary Care Unavailable Lue, Orquidea M Consulting Unavailable GADANI, MANSOOR TUNA Admitting Unavailable GADANI, MANSOOR TUNA Attending Unavailable HELEN HEATH Primary Care Unavailabl e LEIDY, DAX Admitting Unavailable LEIDY, DAX Attending Unavailable HEATH, HELEN GONZALO Primary Care Unavailabl e Allergies Allergy Classification Reported Allergen(s) Allergy Type Date of Onset Reaction(s) Facility Anti-Epileptic Agents (2 sources) gabapentin; Translations: [gabapentin] Drug Allergy 2 Unknown, Rash [facility] Marcela mirabegron (2 sources) mirabegron; Translations: [mirabegron] Drug Allergy Multiple open mouth wounds (disorder) [facility] (20 sources) gabapentin; Translations: [gabapentin] Drug Allergy 2 rash, Unknown [facility] (20 sources) mirabegron; Translations: [MIRABEGRON] Drug Allergy 2 Diarrhea, GI Upset [facility] (20 sources) mirabegron; Translations: [mirabegron] Drug Allergy Multiple open mouth wounds (disorder) [facility] (20 sources) Lisinopril; Translations: [Lisinopril] Drug Allergy 4 DRY COUGH, Unknown, Cough [facility] (13 sources) No Known Medication Allergies; Translations: [No Known Medication Allergies] Propensity to adverse reactions (disorder) [facility] (1 source) ALLERGIES NOT ON FILE; Translations: [ALLERGIES NOT ON FILE] Propensity to adverse reactions (disorder) [facility] Medications Current Medications Medication Drug Class(es) Dates Sig (Normalized) Sig (Original) acetaminophen 500 mg oral tablet (20 sources) Start: 03-03-2025 take 1 tablet by mouth every four hours as needed for pain acetaminophen 500 mg Tab 500 mg = 1 tab(s), Oral, q4hr, PRN for pain Start Date: 03/03/25 Status: Ordered Repeat number: 1 Start: 08-03-2024 take 1 capsule by mo [facility] every six hours as needed Start: 01-20-2024 End: 06-02-2024 take 2 tablets by mouth every six hours as needed for pain Acetaminophen (Tylenol) 325 mg tablet Discontinued 650 MG PO Every 6 hours as needed for bladder pain January 20, 2024 12:00am June 02, 2024 5:19pm Start: 04-27-2020 End: 02-27-2021 take 2 capsules by mouth once daily as needed for pain Acetaminophen (Tylenol) 325 mg Capsule Discontinued 650 MG PO Daily as needed for Pain April 27, 2020 12:00am February 27, 2021 2:41pm acetaminophen 325 mg / HYDROcodone bitartrate 5 mg oral tablet (5 sources) Opioid Agonist Start: 04-18-2022 [place] 325 mg-5 mg oral tablet 1 tab(s), Oral, As Directed, 1 tab(s), Refill(s) 0, Take 1 hour prior to procedure, [facility], 180, cm, 04/18/22 13:52:00 EDT, Height/Length Dosing, 110, kg, 04/18/22 13:52:00 EDT, Weight Dosing Start Date: 04/18/22 Status: Ordered acetaminophen 325 mg / traMADol hydrochloride 37.5 mg oral tablet (5 sources) Opioid Agonist Start: 04-18-2022 take 1 tablet by mouth every six hours Ultracet 325 mg-37.5 mg Tab 1 tab(s), Oral, q6hr severe pain, 12 tab(s), Refill(s) 0, [facility], 180, cm, 04/18/22 13:52:00 EDT, Height/Length Dosing, 110, kg, 04/18/22 13:52:00 EDT, Weight Dosing Start Date: 04/18/22 Status: Ordered aspirin 81 mg delayed release oral tablet (20 sources) Platelet Aggregation Inhibitor, Nonsteroidal Anti-inflammatory Drug Start: 11-26-2020 take 1 tablet by mouth once daily aspirin 81 mg Oral EC Tab 81 mg = 1 tab(s), Oral, Daily Start Date: 03/03/25 Status: Ordered Repeat number: 1 Start: 11-13-2020 aspirin 81 mg chewable tablet mg tab(s), Chewed, Daily, Refills(s) 0 11/13/2020 Active Start: 04-27-2020 End: 10-15-2020 take 1 tablet by mouth once daily Aspirin (Aspirin Low Dose) 81 mg Tablet,Delayed Release (Dr/Ec) Discontinued 81 MG PO Daily April 27, 2020 12:00am October 15, 2020 11:14am take 1 tablet by [facility] once daily Aspirin 81 81 MG 1 tablet Orally Once a day Active Comment on above: mg tab(s), Chewed, Daily, Refills(s) 0 atorvastatin 20 mg oral tablet (20 sources) HMG-CoA Reductase Inhibitor Start: 10-16-19 atorvastatin (LIPITOR) 20 mg tablet Take by mouth. 10/15/2020 Active Comment on above: Take by mouth. cephalexin 500 mg oral capsule (20 sources) Cephalosporin Antibacterial Start: 04-19-20 End: 04-26-20 take 1 capsule by mouth twice daily cephalexin 500 mg Cap 500 mg = 1 cap(s), Oral, BID, X 7 day(s), # 14 cap(s), Refills(s) 0, Pharmacy: [facility], 171, cm, 01/28/24 10:39:00 EDT, Height/Length Dosing, 94, kg, 01/28/24 10:39:00 EDT, Weight Dosing Start Date: 04/19/24 Stop Date: 04/26/24 Status: Ordered Start: 02-25-2023 End: 03-04-2023 take 1 capsule by mouth three times daily cephALEXin (KEFLEX) 500 mg capsule Take 1 capsule by mouth three times daily for 7 days. 21 capsule 0 02/25/2023 03/04/2023 Active Start: 08-20-2021 End: 10-03-2021 take 1 capsule by mouth every eight hours Cephalexin 500 mg capsule Discontinued 500 MG PO Every 8 hours 30 August 20, 2021 1:00am October 03, 2021 2:10pm Start: 08-20-2021 End: 10-03-2021 Comment on above: Take 1 capsule by [facility] three times daily for 7 days. cholecalciferol 0.05 mg oral capsule (20 sources) Vitamin D Start: End: 4 Cholecalciferol, Vitamin D3, (D3-2000) 50 mcg (2,000 unit) cap Take by mouth. 11/13/2020 Active Comment on above: Take by mouth. ciprofloxacin 500 mg oral tablet (10 sources) Quinolone Antimicrobial Start: 5 End: 5 take 1 tablet by mouth every twelve hours Cipro 500 mg Tab 500 mg = 1 tab(s), Oral, q12hr, X 3 day(s), # 6 tab(s), Refills(s) 0, Pharmacy: [facility], 171, cm, 08/31/24 11:19:00 EST, Height/Length Dosing, 94, kg, 08/31/24 11:19:00 EST, Weight Dosing Start Date: 11/06/24 Stop Date: 11/09/24 Status: Ordered Quantity: 6.0 Unit: tab(s) Repeat number: 1 Start: 09-08-2024 End: 09-13-2024 take 1 tablet by mouth every twelve hours Cipro 500 mg Tab 500 mg = 1 tab(s), Oral, q12hr, X 5 day(s), # 10 tab(s), Refills(s) 0, Pharmacy: [facility], 171, cm, 08/31/24 11:19:00 EST, Height/Length Dosing, 94, kg, 08/31/24 11:19:00 EST, Weight Dosing Start Date: 09/08/24 Stop Date: 09/13/24 Status: Ordered Start: 08-16-2024 End: 08-21-2024 take 1 tablet by mouth every twelve hours Cipro 500 mg Tab 500 mg = 1 tab(s), Oral, q12hr, X 5 day(s), # 10 tab(s), Refills(s) 0, Pharmacy: [facility], 171, cm, 08/09/24 11:31:00 EST, Height/Length Dosing, 94, kg, 08/09/24 11:31:00 EST, Weight Dosing Start Date: 08/16/24 Stop Date: 08/21/24 Status: Ordered Start: 04-25-2022 take 1 tablet by [facility] every twelve hours Cipro 500 mg Tab 500 mg = 1 tab(s), Oral, q12hr, Start taking day prior to scheduled UroLift, # 6 tab(s), Refills(s) 0, Pharmacy: [facility], 180, cm, 04/18/22 13:52:00 EDT, Height/Length Dosing, 110, kg, 04/18/22 13:52:00 EDT, Weight Dosing Start Date: 04/25/22 Status: Ordered Start: 04-18-2022 End: 09-05-2022 take 1 tablet by mouth twice daily Cipro 500 mg Tab 500 mg = 1 tab(s), Oral, BID, Start day before, X 3 day(s), # 6 tab(s), Refills(s) 0, Pharmacy: [facility], 180, cm, 04/18/22 13:52:00 EDT, Height/Length Dosing, 110, kg, 04/18/22 13:52:00 EDT, Weight Dosing Start Date: 04/18/22 Stop Date: 04/21/22 Status: Ordered Cranberry preparation (18 sources) Non-Standardized Food Allergenic Extract, Non-Standardized Plant Allergenic Extract Start: 11-17-2024 Cranberry Oral, Daily Start Date: 11/17/24 Status: Ordered Repeat number: 1 Start: 11-17-2024 Cranberry Star t Date: 11/17/24 Status: Ordered Repeat number: 1 Start: 10-04-2024 take 1 capsule by mo ut twice daily at mealtime Start: 10-04-2024 Start: 10-04-2024 take 1 capsule by mo uth twice daily at mealtime Cranberry 500 mg capsule Active 500 MG PO Twice daily October 04, 2024 1:00am administer with meals Start: 10-04-2024 take 1 capsule by mo uth twice daily at mealtime Cranberry 500 mg capsule Active 500 MG PO Twice daily October 04, 2024 12:00am administer with meals D-mannose (9 sources) Start: 11-17-2024 D-mannose D-ma nnose Start Date: 11/17/24 Status: Ordered Repeat number: 1 Aranesp (20 sources) Erythropoiesis-stimulat ing Agent Start: 03-03-2025 Aranesp SubCutaneous , q4wk Start Date: 03/03/25 Status: Ordered Repeat number: 1 Start: 01-03-2025 Start: 06-02-2024 End: 01-03-2025 Darbepoetin Raymond In Polysorb at (Aranesp (In Polysorbate)) 10 mcg/0.4 mL syringe Discontinued 10 MCG IV .every other week as needed for Hemoglobin less than 10 June 02, 2024 12:00am January 03, 2025 2:48pm Start: 10-26-2023 End: 01-19-2024 Darbepoetin Raymond In Polysorb at 10 mcg/0.4 mL syringe Discontinued 10 MCG SUBCUT EVERY 2 WEEKS October 26, 2023 12:00am January 19, 2024 3:41pm if HGB below 10. Start: 03-10-2020 End: 04-27-2020 take 1 [IU] intravenously every week Darbepoetin Raymond In Polysorbat (Aranesp (In Polysorbate)) 40 mcg/mL Solution Discontinued 40 MCG IV-PUSH Q7D@1000 0 March 10, 2020 12:00am April 27, 2020 4:13pm This will be given at the dialysis unit. Start: 03-10-2020 End: 04-27-2020 take 1 [IU] intravenously every week Darbepoetin Raymond In Polysorbat (Aranesp (In Polysorbate)) 40 mcg/mL Solution Discontinued 40 MCG IV-PUSH Q7D@1000 0 March 10, 2020 12:00am April 27, 2020 4:13pm This will be given at the dialysis unit. Aranesp (Albumin Free) 10 MCG/0.4ML as directed Injection every other week Active diazePAM 10 mg oral tablet (5 sources) Benzodiazepine Start: 04-18-2022 Valium 10 mg T ab 10 mg = 1 tab(s), Oral, As Directed, Take 1/2 hour prior to procedure, # 1 tab(s), Refills(s) 0, Pharmacy: [facility], 180, cm, 04/18/22 13:52:00 EDT, Height/Length Dosing, 110, kg, 04/18/22 13:52:00 EDT, Weight Dosing Start Date: 04/18/22 Status: Ordered docusate sodium 100 mg oral tablet (20 sources) Start: 11-17-2024 take 100 mg by mouth once daily Dulcolax Stool Softener 100 mg, Oral, Daily Start Date: 11/17/24 Status: Ordered Repeat number: 1 Start: 11-17-2024 Dulcolax Stool Softener mg, Oral Start Date: 11/17/24 Status: Ordered Repeat number: 1 Start: 10-26-2023 take 1 capsule by [facility] once daily in the evening Start: 03-10-2020 End: 10-15-2020 take 1 capsule by mouth twice daily Docusate Sodium (Dok) 100 mg Capsule Discontinued 100 MG PO Twice daily March 10, 2020 12:00am October 15, 2020 11:14am Start: 03-10-2020 End: 10-15-2020 Comment on above: Take 100 mg by mouth twice daily as needed for constipation. fluconazole 50 mg oral tablet (3 sources) Azole Antifungal Start: 5 End: take 1 tablet by mouth once daily fluconazole 50 mg oral tablet 50 mg = 1 tab(s), Oral, Daily, X 5 day(s), # 5 tab(s), Refills(s) 0, Pharmacy: [id number], 171, cm, 08/31/24 11:19:00 EST, Height/Length Dosing, 94, kg, 08/31/24 11:19:00 EST, Weight Dosing Start Date: 11/08/24 Stop Date: 11/13/24 Status: Ordered Quantity: 5.0 Unit: tab(s) Repeat number: 1 Start: 04-08-2022 End: 04-22-2022 take 1 tablet by mouth once daily fluconazole 200 mg Tab 200 mg = 1 tab(s), Oral, Daily, X 14 day(s), # 14 tab(s), Refills(s) 0, Pharmacy: [id number], 180, cm, 04/01/22 9:29:00 EDT, Height/Length Dosing, 110, kg, 04/01/22 9:29:00 EDT, Weight Dosing Start Date: 04/08/22 Stop Date: 04/22/22 Status: Ordered furosemide 20 mg oral tablet (20 sources) Loop Diuretic Start: 11-13-2020 take 1 mg by mouth once daily furosemide 20 mg Tab mg tab(s), Oral, Daily, Refills(s) 0 Start Date: 11/13/20 Status: Ordered Start: 03-10-2020 End: 10-15-2020 take 1 tablet by mouth twice daily Furosemide 40 mg Tablet Discontinued 40 MG PO BID@0800,1600 60 March 10, 2020 12:00am October 15, 2020 11:16am Start: 03-10-2020 End: 10-03-2021 Furosemide 40 mg tablet Disc ontinued 20 MG PO Daily October 15, 2020 11:15am October 03, 2021 2:22pm Start: 03-10-2020 End: 10-03-2021 Gentle Iron oral capsule (20 sources) Start: 01-28-2024 Gentle Iron or al capsule 1 cap(s), Oral, Daily, 30 cap(s), Refill(s) 0 Start Date: 01/28/24 Status: Ordered Quantity: 30.0 Unit: cap(s) Repeat number: 1 Start: 01-28-2024 Gentle Iron or al capsule 1 cap(s), Oral, Daily, 30 cap(s), Refill(s) 0 Start Date: 01/28/24 Status: Ordered hydrALAZINE hydrochloride 25 mg oral tablet (20 sources) Arteriolar Vasodilator Start: 12-10-2021 take 1 mg by mouth four times daily hydrALAZINE 25 mg Tab mg tab(s), Oral, QID, Refills(s) 0 Start Date: 12/10/21 Status: Ordered Start: 03-10-2020 End: 07-02-2020 take 1 tablet by mouth twice daily Hydralazine 50 mg Tablet Discontinued 50 MG PO Twice daily 60 March 10, 2020 12:00am July 02, 2020 10:01am Start: 03-10-2020 End: 10-03-2021 Hydralazine 50 mg tablet Discontinued 25 MG PO Twice daily July 02, 2020 10:01am October 03, 2021 2:22pm Start: 03-10-2020 End: 10-03-2021 Insulin Lispro (Humalog Kwikpen Insulin) 100 unit/mL insulin pen (20 sources) Start: 10-26-2023 inject 8 [IU] by subcutaneous injection once before mealtime Insulin Lispro (Humalog Kwikpen Insulin) 100 unit/mL insulin pen Active 8 UNIT SUBCUT 3x/Day before meals October 26, 2023 2:28pm per sliding scale instructions Start: 10-26-2023 inject 8 [IU] by sub cutaneous injection once before mealtime Insulin Lispro (Humalog Kwikpen Insulin) 100 unit/mL insulin pen Active 8 UNIT SUBCUT 3x/Day before meals October 26, 2023 3:28pm per sliding scale instructions insulin lispro (HUMALOG KWIKPEN) 100 unit/mL pen (12 sources) inject 8 [IU] by subcutaneous injection three times daily before mealtime insulin lispro (HUMALOG KWIKPEN) 100 unit/mL pen Inject 8 Units subcutaneously three times daily before meals. Plus sliding scale. Active inject 8 [IU] by sub cutaneous injection three times daily before mealtime insulin lispro (HUMALOG KWIKPEN) 100 unit/mL pen Inject 8 Units subcutaneously three times daily before meals. Plus sliding scale. 0 Active Comment on above: Inject 8 Units subcu taneously three times daily before meals. Plus sliding scale. Iron (7 sources) Start: 11-17-2024 iron iron, 25 mg Start Date: 11/17/24 Status: Ordered Repeat number: 1 Iron Bis Glycinat-Vit C-Fa-B12 (Gentle Iron) 28 mg iron-60mg -400 mcg-8 mcg capsule (20 sources) Start: 10-26-2023 take 1 capsule by mouth once daily in the evening Start: 10-26-2023 take 1 capsule by mo uth once daily in the evening Iron Bis Glycinat-Vit C-Fa-B12 (Gentle Iron) 28 mg iron-60mg -400 mcg-8 mcg capsule Active 1 CAP PO Every evening October 25, 2023 11:00pm Start: 10-26-2023 take 1 capsule by mo uth once daily in the evening Iron Bis Glycinat-Vit C-Fa-B12 (Gentle Iron) 28 mg iron-60mg -400 mcg-8 mcg capsule Active 1 CAP PO Every evening October 26, 2023 12:00am Start: 10-26-2023 take 1 capsule by mo uth once daily Iron Bis Glycinat-Vit C-Fa-B12 (Gentle Iron) 28 mg iron-60mg -400 mcg-8 mcg capsule Active 1 CAP PO daily October 26, 2023 12:00am Start: 10-26-2023 take 1 capsule by mo uth once daily Iron Bis Glycinat-Vit C-Fa-B12 (Gentle Iron) 28 mg iron-60mg -400 mcg-8 mcg capsule Active CAP PO daily October 26, 2023 12:00am lactobacillus acidophilus 10 [id number] unt oral capsule (20 sources) Start: 06-02-2024 End: 08-03-2024 Start: 06-02-2024 End: 08-03-2024 take 10 capsules by mouth once daily Comment on above: probiotic as directe d Active levoFLOXacin 500 mg oral tablet (1 source) Quinolone Antimicrobial Start: 3 End: take 1 tablet by mouth every twenty-four hours Levaquin 500 mg Tab 500 mg = 1 tab(s), Oral, q24hr, X 7 day(s), # 7 tab(s), Refills(s) 0, Pharmacy: [id number], 171, cm, 05/15/23 15:22:00 EDT, Height/Length Dosing, 94, kg, 05/15/23 15:22:00 EDT, Weight Dosing Start Date: 07/02/23 Stop Date: 07/09/23 Status: Ordered Lisinopril (20 sources) Angiotensin Converting Enzyme Inhibitor Start: lisinopril Oral, Daily Start Date: 02/13/23 Status: Ordered Start: 01-22-2023 End: 10-01-2023 take 1 tablet by mouth once daily Lisinopril 10 mg Tablet Discontinued 10 MG PO Daily January 22, 2023 12:00am October 01, 2023 3:10pm Start: 01-14-2023 lisinopril (ZE STRIL) 10 mg tablet Take by mouth q 24 HR. 01/14/2023 Active Start: 01-14-2023 take 1 tablet by lakeshia th every twenty-four hours Lisinopril 10 MG 1 tablet Orally Once a day for 30 days December, Active Comment on above: Take by mouth q 24 H R. mecobalamin 1 mg chewable tablet (18 sources) Start: 03-08-2024 take 1 tablet by mouth once daily MEN'S MULTI-VITAMIN ORAL (12 sources) MEN'S MULTI-VITAMIN ORAL Multi Vitamin Mens Active Active MEN'S MULTI-ALEJA MIN ORAL Multi Vitamin Mens Active 0 Active Comment on above: Multi Vitamin Mens A ctive 24 hr metFORMIN hydrochloride 500 mg extended release oral tablet (20 sources) Biguanide Start: 12-23-2022 metFORMIN ER (GLUCOPHAGE XR) 500 mg 24 hr tablet 12/23/2022 Active Start: 11-26-2020 End: 01-22-2024 take 1 tablet by mouth twice daily Metformin 500 mg Tablet Discontinued 500 MG PO Twice daily November 26, 2020 12:00am January 22, 2024 4:14pm Start: 11-26-2020 take 1000 mg by mout h twice daily Metformin Active 1000 MG PO Twice daily November 26, 2020 12:00am Start: 03-04-2020 End: 03-10-2020 take 1 tablet by mouth twice daily Metformin 1,000 mg Tablet Discontinued 1000 MG PO Twice daily March 04, 2020 12:00am March 10, 2020 8:07am 24 hr mirabegron 50 mg extended release oral tablet (3 sources) beta3-Adrenergic Agonist Start: 06-04-2022 End: 12-31-2022 take 1 tablet by mouth once daily mirabegron 50 mg oral tablet, extended release 50 mg = 1 tab(s), Oral, Daily, X 30 day(s), # 30 tab(s), Refills(s) 6, Pharmacy: [id number], 180, cm, 06/04/22 11:02:00 EDT, Height/Length Dosing, 95.5, kg, 06/04/22 11:02:00 EDT, Weight Dosing Start Date: 06/04/22 Stop Date: 12/31/22 Status: Ordered Multi Vitamin Mens (2 sources) Multi Vitamin Mens Active nitrofurantoin, macrocrystals 100 mg oral capsule (20 sources) Nitrofuran Antibacterial Start: 10-26-2023 take 1 capsule by mouth once daily One A Day Men's Complete oral tablet (16 sources) Start: 01-28-2024 take 1 tablet by mouth once daily One A Day Men's Complete oral tablet Oral, Daily, Refill(s) 0 Start Date: 01/28/24 Status: Ordered potassium phosphate 155 mg / sodium phosphate, dibasic 852 mg / sodium phosphate, monobasic 130 mg oral tablet (14 sources) Start: 01-14-2023 take 1 tablet by mouth every eight hours Phospha 250 Neutral 155-852-130 MG 1 tablet Orally tid for 30 days December, Active Comment on above: Take 1 tablet by lakeshia th three times daily. probiotic (3 sources) probiotic as directed Active Probiotic + Colostrum (20 sources) Start: 12-10-2021 Probiotic + Colostrum Oral, Daily, Refill(s) 0 Start Date: 12/10/21 Status: Ordered Repeat number: 1 Start: 12-10-2021 Probiotic + Co lostrum Oral, Daily, Refill(s) 0 Start Date: 12/10/21 Status: Ordered semaglutide 3 mg oral tablet (2 sources) Start: 03-27-2025 Rybelsus 3 mg oral tablet Refills(s) 0 Start Date: 03/27/25 Status: Ordered Repeat number: 1 sulfamethoxazole 800 mg / trimethoprim 160 mg oral tablet (20 sources) Dihydrofolate Reductase Inhibitor Antibacterial, Sulfonamide Antimicrobial Start: 12-11-2023 End: 12-21-2023 Bactrim D.S. 800 mg-160 mg Tab 1 tab(s), Oral, BID for 10 day(s), 20 tab(s), Refill(s) 0, [id number], 171, cm, 07/22/23 9:22:00 EST, Height/Length Dosing, 94, kg, 07/22/23 9:22:00 EST, Weight Dosing Start Date: 12/11/23 Stop Date: 12/21/23 Status: Ordered Start: 10-15-2020 End: 08-20-2021 take 1 tablet by mouth twice daily Sulfamethoxazole-Trimethoprim (Bactrim D s) 800-160 mg Tablet Discontinued 1 TAB PO Twice daily October 15, 2020 1:00am August 20, 2021 7:14pm Start: 10-15-2020 End: 08-20-2021 take 1 tablet by lakeshia once daily Bactrim DS 800-160 MG 1 tablet Orally MO , THURSDAY, THURSDAY ONCE A DAY Active trospium chloride 20 mg oral tablet (1 source) Cholinergic Muscarinic Antagonist Start: 09-18-2022 take 1 tablet by mouth at bedtime trospium 20 mg oral tablet 20 mg = 1 tab(s), Oral, Bedtime, # 30 tab(s), Refills(s) 11, Pharmacy: [id number], 180, cm, 09/18/22 9:44:00 EST, Height/Length Dosing, 95.5, kg, 09/18/22 9:44:00 EST, Weight Dosing Start Date: 09/18/22 Status: Ordered Vitamin B-12 100 mcg oral tablet (20 sources) Start: 01-28-2024 take 1 tablet by mouth once daily Vitamin B-12 100 mcg oral tablet 100 mcg = 1 tab(s), Oral, Daily, Refills(s) 0 Start Date: 01/28/24 Status: Ordered Repeat number: 1 Start: 01-28-2024 take 1 ug by mouth once daily Vitamin B-12 100 mcg oral tablet mcg tab(s), Oral, Daily, Refills(s) 0 Start Date: 01/28/24 Status: Ordered Repeat number: 1 Start: 01-28-2024 take 1 ug by mouth once daily Vitamin B-12 100 mcg oral tablet mcg tab(s), Oral, Daily, Refills(s) 0 Start Date: 01/28/24 Status: Ordered Vitamin D 50 MCG (2000 UT) (3 sources) take 1 capsule by mouth once daily Vitamin D 50 MCG (1999 UT) 1 capsule Orally Once a day Active Vitamin D3 2000 intl units (20 sources) Start: 11-13-2020 take 50 ug by mouth once daily Vitamin D3 2000 intl units 50 mcg, Oral, Daily, Refills(s) 0 Start Date: 11/13/20 Status: Ordered Repeat number: 1 Start: 11-13-2020 Vitamin D3 200 0 intl units Oral, Daily, Refills(s) 0 Start Date: 11/13/20 Status: Ordered Repeat number: 1 Start: 11-13-2020 Vitamin D3 200 0 intl units Oral, Daily, Refills(s) 0 Start Date: 11/13/20 Status: Ordered Start: 11-13-2020 Vitamin D3 200 0 intl units Refills(s) 0 Start Date: 11/13/20 Status: Ordered (20 sources) Start: 06-02-2024 Start: 03-08-2024 End: 06-02-2024 Start: 10-26-2023 Start: 10-26-2023 End: 08-03-2024 Start: 10-26-2023 Start: 10-26-2023 End: 06-02-2024 Start: 06-27-2022 End: 01-22-2023 Start: 06-02-2022 End: 06-27-2022 Start: 05-02-2022 End: 06-02-2022 Start: 03-05-2022 End: 05-02-2022 Start: 01-07-2022 End: 02-07-2022 Start: 12-11-2021 End: 01-07-2022 Start: 11-01-2021 End: 12-11-2021 Start: 10-15-2020 End: 05-30-2021 Start: 07-02-2020 End: 10-15-2020 Start: 04-27-2020 End: 10-26-2023 Completed/Discontinued Medications Medication Drug Class(es) Dates Sig (Normalized) Sig (Original) acetaminophen 325 mg / oxyCODONE hydrochloride 5 mg oral tablet (20 sources) Opioid Agonist Start: 05-30-2020 End: 10-15-2020 take 1 tablet by mouth every four hours as needed for pain Oxycodone-Acetamino phen (Percocet) 5-325 mg Tablet Discontinued 1 TAB PO Q4H as needed for Pain May 30, 2020 12:00am October 15, 2020 11:40am prescribed through palliative Start: 05-30-2020 End: 10-15-2020 acyclovir 400 mg oral tablet (20 sources) Herpesvirus Nucleoside Analog DNA Polymerase Inhibitor, Herpes Simplex Virus Nucleoside Analog DNA Polymerase Inhibitor, Herpes Zoster Virus Nucleoside Analog DNA Polymerase Inhibitor Start: 10-15-2020 End: 09-03-2022 take 1 tablet by mouth twice daily Acyclovir 400 mg Tablet Discontinued 400 MG PO Twice daily 120 60 December 26, 2021 8:06am September 03, 2022 9:45am amLODIPine 5 mg oral tablet (20 sources) Dihydropyridine Calcium Channel Magdiel Start: 03-10-2020 End: 04-09-2020 take 1 tablet by mouth once daily Amlodipine 5 mg Tablet Discontinued 5 MG PO Daily 30 March 10, 2020 12:00am April 09, 2020 8:39am calcium acetate 667 mg oral capsule (20 sources) Start: 04-09-2020 End: 04-27-2020 take 1 capsule by mouth three times daily Calcium Acetate(Phosphat Bind) 667 mg Capsule Discontinued 667 MG PO Three times daily April 09, 2020 12:00am April 27, 2020 4:13pm cefdinir 300 mg oral capsule (20 sources) Cephalosporin Antibacterial Start: 01-22-2024 End: 2024 take 1 capsule by mouth twice daily Cefdinir 300 mg capsule Discontinued 300 MG PO Twice daily 12 6 January 22, 2024 12:00am 2024 12:54pm clobetasol propionate 0.5 mg/ml topical cream (16 sources) Corticosteroid Start: 03-08-2024 End: 06-02-2024 Clobetasol 0.05 % cream Discontinued TOPICAL March 08, 2024 12:00am June 02, 2024 5:19pm Start: 03-08-2024 End: 06-02-2024 Start: 03-08-2024 End: 06-02-2024 Clobetasol 0.05 % cream Disc ontinued TOPICAL March 08, 2024 12:00am June 02, 2024 5:19pm Start: 03-08-2024 End: 06-02-2024 Clobetasol 0.05 % cream Disc ontinued TOPICAL March 07, 2024 11:00pm June 02, 2024 4:19pm Start: 03-08-2024 End: 06-02-2024 Clobetasol Discontinued TOPI CRISPIN March 08, 2024 12:00am June 02, 2024 5:19pm Start: 03-08-2024 Clobetasol Act gabriela TOPICAL March 08, 2024 12:00am doxycycline hyclate 100 mg oral capsule (14 sources) Tetracycline-class Drug Start: 01-03-2025 End: 02-08-2025 take 1 capsule by mouth twice daily Doxycycline Hyclate 100 mg capsule Discontinued 100 MG PO Twice daily January 03, 2025 12:00am February 08, 2025 2:04pm Start: 11-08-2024 End: 11-11-2024 doxycycline hyclate 100 mg C ap 100 mg = 1 cap(s), Oral, BID, may substitute hyclate for monohydrate based on availability, X 3 day(s), # 6 cap(s), Refills(s) 0, Pharmacy: [id number], 171, cm, 08/31/24 11:19:00 EST, Height/Length Dosing, 94, kg, 08/31/24 11:19:00 EST, Weight Dosing Start Date: 11/08/24 Stop Date: 11/11/24 Status: Ordered Quantity: 6.0 Unit: cap(s) Repeat number: 1 Start: 01-08-2024 take 1 capsule by mo [facility] twice daily doxycycline monohydrate 100 mg oral capsule 100 mg = 1 cap(s), Oral, BID, # 14 cap(s), Refills(s) 0, called to pharmacy (Rx) Start Date: 01/08/24 Status: Ordered Start: 10-09-2022 End: 10-16-2022 take 1 capsule by mouth twice daily doxycycline hyclate 100 mg Cap 100 mg = 1 cap(s), Oral, BID, X 7 day(s), # 14 cap(s), Refills(s) 0, Pharmacy: [id number], 180, cm, 10/09/22 11:06:00 EST, Height/Length Dosing, 95.5, kg, 10/09/22 11:06:00 EST, Weight Dosing Start Date: 10/09/22 Stop Date: 10/16/22 Status: Ordered Start: 12-10-2021 take 1 mg by mouth twice daily doxycycline hyclate 100 mg Cap mg cap(s), Oral, BID, Refills(s) 0 Start Date: 12/10/21 Status: Ordered take 1 tablet by lakeshia twice daily Doxycycline Hyclate 100 MG 1 tablet Orally Twice a day Active empagliflozin 10 mg oral tablet (9 sources) Sodium-Glucose Cotransporter 2 Inhibitor Start: 10-04-2024 End: 01-03-2025 take 1 tablet by mouth once daily Empagliflozin (Jardiance) 10 mg tablet Discontinued 10 MG PO Daily October 04, 2024 1:00am January 03, 2025 2:44pm ergocalciferol 1.25 mg oral capsule (20 sources) Provitamin D2 Compound Start: 03-10-2020 End: 07-02-2020 Ergocalciferol (Vitamin D2) 1,250 mcg (50,000 unit) Capsule Discontinued [id number] UNIT PO Mo@0900 8 60 May 07, 2020 9:01am July 02, 2020 10:01am Start: 03-10-2020 End: 07-02-2020 Start: 03-10-2020 End: 07-02-2020 take 84192 [IU] by mouth once Ergocalciferol (Vitamin D2) Discontinued [id number] UNIT PO Mo@0900 8 60 May 07, 2020 9:01am July 02, 2020 10:01am famotidine 20 mg oral tablet (20 sources) Histamine-2 Receptor Antagonist Start: 08-20-2021 End: 08-20-2021 Famotidine Discontinued MG TABLET August 20, 2021 1:00am August 20, 2021 7:16pm Start: 03-10-2020 End: 10-01-2023 famotidine (PEPCID) 20 mg ta blet Take 20 mg by mouth. 08/15/2020 Active Start: 03-10-2020 End: 10-01-2023 Comment on above: Take 20 mg by mouth. ferrous sulfate 325 mg oral tablet (20 sources) Start: 07-02-2020 End: 10-15-2020 take 1 tablet by mouth once daily Ferrous Sulfate 325 mg (65 mg iron) Tablet Discontinued 325 MG PO Daily July 02, 2020 1:00am October 15, 2020 11:15am Start: 03-10-2020 End: 04-27-2020 take 1 tablet by mouth twice daily Ferrous Sulfate 324 mg (65 mg iron) Tablet,Delayed Release (Dr/Ec) Discontinued 324 MG PO Twice daily 60 March 10, 2020 12:00am April 27, 2020 4:13pm gabapentin 100 mg oral capsule (20 sources) Anti-epileptic Agent Start: 07-02-2020 End: 10-15-2020 take 3 tablets by mouth once daily at bedtime Gabapentin 100 mg Capsule Discontinued 100 MG PO Daily at bedtime July 02, 2020 1:00am October 15, 2020 11:15am may take up to three tabs Start: 07-02-2020 End: 05-30-2021 Gabapentin 100 mg Tablet Dis continued 100 MG PO Daily as needed for Pain October 15, 2020 1:00am May 30, 2021 2:41pm takes 2 in morning, 1 in the afternoon and 2 at night glyBURIDE 5 mg oral tablet (20 sources) Sulfonylurea Start: 03-04-2020 End: 03-10-2020 take 1 tablet by mouth once daily Glyburide 5 mg tablet Discontinued 5 MG PO Daily March 04, 2020 12:00am March 10, 2020 8:07am hydroCHLOROthiazide 25 mg / lisinopril 20 mg oral tablet (20 sources) Thiazide Diuretic, Angiotensin Converting Enzyme Inhibitor Start: 03-04-2020 End: 03-10-2020 take 1 tablet by mouth once daily Lisinopril-Hydroc hlorothiazide 20-25 mg Tablet Discontinued 1 TAB PO Daily March 04, 2020 12:00am March 10, 2020 8:07am Start: 03-04-2020 End: 03-10-2020 3 ml insulin glargine 100 un t/ml pen injector (20 sources) Insulin Analog Start: 10-26-2023 End: 03-08-2024 Start: 01-15-2023 LANTUS SOLOSTA R U-100 INSULIN 100 unit/mL (3 mL) 01/15/2023 Active Start: 11-13-2020 inject 15 [IU] by causey bcutaneous injection once daily at bedtime Lantus insulin 15 unit(s), SubCutaneous, Once a day (at bedtime), Refills(s) 0 Start Date: 11/13/20 Status: Ordered Repeat number: 1 Start: 11-13-2020 inject 25 [IU] by causey bcutaneous injection once daily at bedtime Lantus insulin 25 unit(s), SubCutaneous, Once a day (at bedtime), Refills(s) 0 Start Date: 11/13/20 Status: Ordered Repeat number: 1 Start: 11-13-2020 inject 25 [IU] by causey bcutaneous injection once daily at bedtime Lantus insulin 25 unit(s), SubCutaneous, Once a day (at bedtime), Refills(s) 0 Start Date: 11/13/20 Status: Ordered Start: 11-13-2020 Lantus insulin SubCutaneous, Daily, Refills(s) 0 Start Date: 11/13/20 Status: Ordered Start: 04-27-2020 End: 10-04-2024 Start: 04-27-2020 End: 10-26-2023 Insulin Glargine (Lantus Naila ostar U-100 Insulin) 100 unit/mL (3 mL) Insulin Pen Discontinued 25 UNIT SUBCUT Daily April 27, 2020 12:00am October 26, 2023 3:30pm 25 units at bedtime Start: 04-27-2020 End: 03-08-2024 Insulin Glargine (Lantus Naila ostar U-100 Insulin) 100 unit/mL (3 mL) insulin pen Discontinued 45 UNIT SUBCUT Daily at bedtime October 26, 2023 3:27pm March 08, 2024 1:38pm Start: 04-27-2020 End: 10-04-2024 Insulin Glargine (Lantus Naila ostar U-100 Insulin) 100 unit/mL (3 mL) insulin pen Discontinued 35 UNIT SUBCUT Daily at bedtime March 08, 2024 1:36pm October 04, 2024 4:29pm Lantus SoloStar 100 UNIT/ML as directed Subcutaneous 12 UNITS IN HS Active insulin isophane, human 100 unt/ml injectable suspension (20 sources) Start: 05-07-2020 End: 10-15-2020 Insulin Nph Isoph U-100 Diana n (Humulin N Nph U-100 Insulin) 100 unit/mL Suspension Discontinued 30 UNIT SUBCUT As Directed May 07, 2020 12:00am October 15, 2020 12:18pm on dexamethasone days Start: 05-07-2020 End: 10-15-2020 3 ml insulin lispro 100 unt/ml pen injector (20 sources) Insulin Analog Start: 06-02-2024 inject 1 dose by subcutaneous injection at mealtime Insulin Lispro Active 1 sliding scale dose SUBCUT .with meals June 02, 2024 12:00am Start: 10-26-2023 inject 8 [IU] by sub cutaneous injection once before mealtime Start: 12-10-2021 Humalog 8 unit (s), SubCutaneous, Refills(s) 0 Start Date: 12/10/21 Status: Ordered Repeat number: 1 Start: 12-10-2021 Humalog 8 unit (s), SubCutaneous, Refills(s) 0 Start Date: 12/10/21 Status: Ordered Start: 12-10-2021 Humalog SubCut aneous, Refills(s) 0 Start Date: 12/10/21 Status: Ordered Start: 04-27-2020 End: 08-03-2024 inject 1 dose by subcutaneous injection at mealtime Insulin Lispro 100 unit/mL insulin pen Discontinued 1 sliding scale dose SUBCUT .with meals June 02, 2024 12:00am August 03, 2024 4:43pm Start: 04-27-2020 End: 10-26-2023 inject 100 [IU] by subcutaneous injection once Insulin Lispro (Humalog Kwikpen Insulin) 100 unit/mL Insulin Pen Discontinued 6 - 16 UNIT SUBCUT As Directed April 27, 2020 12:00am October 26, 2023 3:30pm per sliding scale instructions HumaLOG KwikPen 100 UNIT/ML ICR 6-9-12 ac according to meal size plus ISS 1:20 ac, (hs if >200 half dose) Subcutaneous as directed Active Insulin Lispro (Humalog Kwikpen Insulin) 100 unit/mL Insulin Pen (20 sources) Start: 04-27-2020 End: 10-26-2023 inject 100 [IU] by subcutaneous injection once Insulin Lispro (Humalog Kwikpen Insulin) 100 unit/mL Insulin Pen Discontinued 6 - 16 UNIT SUBCUT As Directed April 26, 2020 11:00pm October 26, 2023 2:30pm per sliding scale instructions Start: 04-27-2020 End: 10-26-2023 inject 100 [IU] by subcutaneous injection once Insulin Lispro (Humalog Kwikpen Insulin) 100 unit/mL Insulin Pen Discontinued 6 - 16 UNIT SUBCUT As Directed April 27, 2020 12:00am October 26, 2023 3:30pm per sliding scale instructions Start: 04-27-2020 inject [...] 26, 2020 11:00pm per sliding scale instructions Insulin Lispro 100 unit/mL insulin pen (8 sources) Start: 06-02-2024 End: 08-03-2024 inject 1 dose by subcutaneous injection at mealtime Insulin Lispro 100 unit/mL insulin pen Discontinued 1 sliding scale dose SUBCUT .with meals June 02, 2024 12:00am August 03, 2024 4:43pm Start: 06-02-2024 End: 08-03-2024 inject 1 dose by subcutaneous injection at mealtime Insulin Lispro 100 unit/mL insulin pen Discontinued 1 sliding scale dose SUBCUT .with meals June 01, 2024 11:00pm August 03, 2024 3:43pm Lactobacillus Combo No.23 (Suleman Probiotic) 14 billion cell capsule (20 sources) Start: 10-26-2023 End: 06-02-2024 take 1 capsule by mouth once daily Lactobacillus Combo No.23 (Suleman Probiotic) 14 billion cell capsule Discontinued 0 PO .once a day October 25, 2023 11:00pm June 02, 2024 4:24pm 1 capsule orally ONCE A DAY; Start: 10-26-2023 End: 06-02-2024 take 1 capsule by mouth once daily Lactobacillus Combo No.23 (Suleman Probiotic) 14 billion cell capsule Discontinued 0 PO .once a day October 26, 2023 12:00am June 02, 2024 5:24pm 1 capsule orally ONCE A DAY; Start: 10-26-2023 take 1 capsule by mo uth once daily Lactobacillus Combo No.23 (Suleman Probiotic) 14 billion cell capsule Active 0 PO .once a day October 26, 2023 12:00am 1 capsule orally ONCE A DAY; Start: 10-26-2023 Lactobacillus Combo No.23 (Suleman Probiotic) 14 billion cell capsule Active CELL PO .once a day October 26, 2023 12:00am lenalidomide 5 mg oral capsule (20 sources) Thalidomide Analog Start: 06-27-2022 End: 01-22-2023 Lenalidomide (Revlimid) 5 mg Capsule Discontinued 0 .ROUTE .COMPLEX June 27, 2022 3:37pm January 22, 2023 1:26pm TAKE 1 CAPSULE EVERY OTHER DAY.ADULT MALE AUTH#[id number] Start: 06-27-2022 End: 01-22-2023 Lenalidomide (Revlimid) 5 mg Capsule Discontinued 0 .ROUTE .COMPLEX June 27, 2022 4:37pm January 22, 2023 2:26pm TAKE 1 CAPSULE EVERY OTHER DAY.ADULT MALE AUTH#[id number] Start: 06-27-2022 Lenalidomide ( Revlimid) 5 mg Capsule Active 0 .ROUTE .COMPLEX June 27, 2022 4:37pm TAKE 1 CAPSULE EVERY OTHER DAY.ADULT MALE AUTH#[id number] Start: 06-27-2022 Lenalidomide ( Revlimid) 5 mg Capsule Active 0 .ROUTE .COMPLEX June 27, 2022 3:37pm TAKE 1 CAPSULE EVERY OTHER DAY.ADULT MALE AUTH#[id number] Start: 06-02-2022 End: 06-27-2022 Lenalidomide (Revlimid) 5 mg Capsule Discontinued 0 .ROUTE .COMPLEX June 02, 2022 12:16pm June 27, 2022 4:38pm TAKE 1 CAPSULE EVERY OTHER DAY.ADULT MALE AUTH#[id number] Start: 06-02-2022 End: 06-27-2022 Lenalidomide (Revlimid) 5 mg Capsule Discontinued 0 .ROUTE .COMPLEX June 02, 2022 11:16am June 27, 2022 3:38pm TAKE 1 CAPSULE EVERY OTHER DAY.ADULT MALE AUTH#[id number] Start: 06-02-2022 Lenalidomide ( Revlimid) 5 mg Capsule Active 0 .ROUTE .COMPLEX June 02, 2022 11:16am TAKE 1 CAPSULE EVERY OTHER DAY.ADULT MALE AUTH#[id number] Start: 05-02-2022 End: 06-02-2022 Lenalidomide (Revlimid) 5 mg Capsule Discontinued 0 .ROUTE .COMPLEX May 02, 2022 10:17am June 02, 2022 12:17pm TAKE 1 CAPSULE EVERY OTHER DAY.ADULT MALE AUTH#[id number] Start: 05-02-2022 End: 06-02-2022 Lenalidomide (Revlimid) 5 mg Capsule Discontinued 0 .ROUTE .COMPLEX May 02, 2022 9:17am June 02, 2022 11:17am TAKE 1 CAPSULE EVERY OTHER DAY.ADULT MALE AUTH#[id number] Start: 05-02-2022 Lenalidomide ( Revlimid) 5 mg Capsule Active 0 .ROUTE .COMPLEX May 02, 2022 10:17am TAKE 1 CAPSULE EVERY OTHER DAY.ADULT MALE AUTH#[id number] Start: 03-05-2022 End: 01-22-2023 Lenalidomide (Revlimid) 5 mg Capsule Discontinued 0 .ROUTE .COMPLEX June 27, 2022 4:37pm January 22, 2023 2:26pm TAKE 1 CAPSULE EVERY OTHER DAY.ADULT MALE AUTH#[id number] Start: 03-05-2022 End: 01-22-2023 Start: 03-05-2022 End: 05-02-2022 Lenalidomide (Revlimid) 5 mg Capsule Discontinued 0 .ROUTE .COMPLEX March 04, 2022 11:00pm May 02, 2022 9:17am TAKE 1 CAPSULE EVERY OTHER DAY.ADULT MALE AUTH#[id number] Start: 03-05-2022 End: 05-02-2022 Lenalidomide (Revlimid) 5 mg Capsule Discontinued 0 .ROUTE .COMPLEX March 05, 2022 12:00am May 02, 2022 10:17am TAKE 1 CAPSULE EVERY OTHER DAY.ADULT MALE AUTH#[id number] Start: 03-05-2022 Lenalidomide ( Revlimid) 5 mg Capsule Active 0 .ROUTE .COMPLEX March 05, 2022 12:00am TAKE 1 CAPSULE EVERY OTHER DAY.ADULT MALE AUTH#[id number] Start: 10-18-2020 End: 02-07-2022 take 1 capsule by mouth once daily Lenalidomide (Revlimid) 5 mg Capsule Discontinued 5 MG PO Daily January 07, 2022 12:02pm February 07, 2022 8:33am swallow whole with glass of water; do not open, crush, chew , break, or dissolve.ADULT MALE AUTH#[id number] Start: 10-18-2020 End: 11-01-2021 Start: 04-12-2020 End: 07-02-2020 Lenalidomide (Revlimid) 5 mg Capsule Discontinued 5 MG PO Every 48 hours 07 14May 07, 2020 9:01am July 02, 2020 9:52am swallow whole with glass of water; do not open, crush, chew , break, or dissolve take 1 tab every other day for 21 days of each 28 day cycle (total 11 tabs every month) Start: 04-12-2020 End: 07-02-2020 Start: 03-08-2020 End: 03-14-2020 Lenalidomide (Revlimid) 25 m g Capsule Discontinued 25 MG PO Daily March 08, 2020 12:00am March 14, 2020 3:32pm swallow whole with glass of water; do not open, crush, chew , break, or dissolve Take D1-14 every 28 day cycle with RVD loperamide hydrochloride 2 mg oral capsule (20 sources) Opioid Agonist Start: 10-15-2020 End: 08-20-2021 take 1 capsule by mouth four times daily as needed for diarrhea Loperamide (Imodium) 2 mg Capsule Discontinued 2 MG PO Four times daily as needed for Diarrhea October 15, 2020 1:00am August 20, 2021 7:14pm losartan potassium 25 mg oral tablet (20 sources) Angiotensin 2 Receptor Magdiel Start: 06-08-2023 End: 06-29-2024 take 1 tablet by mouth once daily Losartan 25 mg tablet Discontinued 25 MG PO Daily March 08, 2024 2:06pm June 29, 2024 3:38pm On Hold: Hold for now. follow with nephrology clinic to repeat blood and discuss if need to restart this medicine. methenamine hippurate 1000 mg oral tablet (10 sources) Start: 10-04-2024 End: 01-03-2025 Methenamine Hippurate 1 gram tablet Discontinued 1 GM PO Daily October 04, 2024 1:00am January 03, 2025 2:47pm Start: 10-04-2024 Methenamine Hi ppurate 1 gram tablet Active 1 GM PO Daily October 04, 2024 1:00am Start: 10-04-2024 Methenamine Hi ppurate 1 gram tablet Active 1 GM PO Daily October 04, 2024 12:00am Start: 10-03-2024 End: 01-03-2025 Methylprednisolone (20 sources) Corticosteroid Start: 03-04-2020 End: 03-10-2020 Methylprednisolone 4 mg tablets,dose pack Discontinued MG March 04, 2020 12:00am March 10, 2020 8:07am Start: 03-04-2020 End: 03-10-2020 Methylprednisolone 4 mg tabl ets,dose pack Discontinued MG March 03, 2020 11:00pm March 10, 2020 7:07am Start: 03-04-2020 End: 03-10-2020 Start: 03-04-2020 End: 03-10-2020 Methylprednisolone Discontin ued MG March 03, 2020 11:00pm March 10, 2020 7:07am Start: 03-04-2020 End: 03-10-2020 Methylprednisolone Discontin ued MG March 04, 2020 12:00am March 10, 2020 8:07am morphine sulfate 15 mg extended release oral tablet (20 sources) Opioid Agonist Start: 07-02-2020 End: 10-15-2020 take 1 tablet by mouth every twelve hours Morphine 15 mg Tablet Extended Release Discontinued 15 MG PO Q12H July 02, 2020 1:00am October 15, 2020 11:39am currently only taking at night Multivitamin (Daily Multi-Vitamin) tablet (20 sources) Start: 10-26-2023 End: 08-03-2024 take 1 tablet by mouth once daily Multivitamin (Daily Multi-Vitamin) tablet Discontinued 1 TAB PO Daily October 26, 2023 12:00am August 03, 2024 4:38pm Start: 10-26-2023 End: 08-03-2024 take 1 tablet by mouth once daily Multivitamin (Daily Multi-Vitamin) tablet Discontinued 1 TAB PO Daily October 25, 2023 11:00pm August 03, 2024 3:38pm Start: 10-26-2023 take 1 tablet by [facility] th once daily Multivitamin (Daily Multi-Vitamin) tablet Active 1 TAB PO Daily October 26, 2023 12:00am nitrofurantoin, macrocrystals 25 mg / nitrofurantoin, monohydrate 75 mg oral capsule (20 sources) Nitrofuran Antibacterial Start: 07-22-2023 End: 02-09-2024 take 1 capsule by mouth twice daily Macrobid 100 mg Cap 100 mg = 1 cap(s), Oral, BID, take 1 cap morning of cath change and 12hrs after, # 30 cap(s), Refills(s) 1, Pharmacy: [id number], 171, cm, 07/22/23 9:22:00 EST, Height/Length Dosing, 94, kg, 07/22/23 9:22:00 EST, Weight Dosing Start Date: 07/22/23 Status: Ordered Quantity: 30.0 Unit: cap(s) Repeat number: 2 24 hr oxybutynin chloride 10 mg extended release oral tablet (20 sources) Cholinergic Muscarinic Antagonist Start: 06-02-2024 End: 10-04-2024 take 1 tablet by mouth twice daily Oxybutynin Chloride 10 mg tablet extended release 24hr Discontinued 10 MG PO Twice daily June 02, 2024 12:00am October 04, 2024 4:29pm Start: 10-26-2023 End: 01-19-2024 take 1 tablet by mouth twice daily Oxybutynin Chloride 10 mg tablet extended release 24hr Discontinued 10 MG PO Twice daily October 26, 2023 12:00am January 19, 2024 3:41pm Start: 05-15-2023 take 1 tablet by [facility] th once daily Start: 12-29-2022 oxybutynin ER (DITROPAN XL) 10 mg 24 hr tablet 12/29/2022 Active Start: 08-28-2022 End: 08-23-2023 take 1 tablet by mouth twice daily oxybutynin 5 mg ER Tab 5 mg = 1 tab(s), Oral, BID, # 180 tab(s), Refills(s) 3, Pharmacy: [facility] 180, cm, 03/02/23 10:34:00 EST, Height/Length Dosing, 95.5, kg, 10/16/22 10:34:00 EST, Weight Dosing Start Date: 10/16/22 Status: Ordered Start: 07-28-2022 End: 06-02-2024 take 2 tablets by mouth twice daily Oxybutynin Chloride 5 mg Tablet Discontinued 10 MG PO Twice daily July 28, 2022 1:00am June 02, 2024 5:17pm Start: 07-28-2022 End: 06-02-2024 Start: 07-28-2022 take 2.5 mg by mouth once gloria y Oxybutynin Chloride Active 2.5 MG PO Daily July 28, 2022 1:00am Start: 07-04-2022 take 1 tablet by [facility] once daily oxybutynin 5 mg ER Tab 5 mg = 1 tab(s), Oral, Daily, # 30 tab(s), Refills(s) 3, Pharmacy: [id number], 180, cm, 07/04/22 13:18:00 EST, Height/Length Dosing, 95.5, kg, 07/04/22 13:18:00 EST, Weight Dosing Start Date: 07/04/22 Status: Ordered Start: 05-05-2022 take 1 tablet by [facility] three times daily as needed for muscle spasms oxybutynin 5 mg Tab 5 mg = 1 tab(s), Oral, TID, PRN for urinary discomfort, Bladder spasms, # 90 tab(s), Refills(s) 0, Pharmacy: [id number], 180, cm, 05/01/22 14:12:00 EDT, Height/Length Dosing, 110, kg, 05/01/22 14:11:00 EDT, Weight Dosing Start Date: 05/05/22 Status: Ordered pioglitazone 30 mg oral tablet (20 sources) Peroxisome Proliferator Receptor alpha Agonist, Peroxisome Proliferator Receptor gamma Agonist, Thiazolidinedione Start: 03-04-2020 End: 03-10-2020 take 1 tablet by mouth once daily Pioglitazone 30 mg Tablet Discontinued 30 MG PO Daily March 04, 2020 12:00am March 10, 2020 8:07am potassium chloride 20 meq extended release oral tablet (20 sources) Start: 04-11-2022 End: 12-22-2022 take 1 tablet by mouth once daily Potassium Chloride 20 mEq Tablet Extended Release Discontinued 20 MEQ PO Daily June 23, 2022 9:59am December 22, 2022 11:14am Start: 04-11-2022 take 20 mEq by mouth once gloria y Potassium Chloride Active 20 MEQ PO Daily April 11, 2022 9:03am Start: 11-13-2020 take 1 tablet by [facility] th twice daily potassium chloride 20 mEq ER Tab mEq tab(s), Oral, BID, Refills(s) 0 Start Date: 11/13/20 Status: Ordered Start: 10-15-2020 End: 04-11-2022 take 1 tablet by mouth once daily Potassium Chloride 20 mEq Tablet Extended Release Discontinued 20 MEQ PO Daily February 07, 2022 12:00am April 11, 2022 9:03am rosuvastatin calcium 5 mg oral tablet (20 sources) HMG-CoA Reductase Inhibitor Start: 03-10-2020 End: 10-15-2020 take 1 tablet by mouth once daily Rosuvastatin (Crestor) 5 mg tablet Discontinued 5 MG PO Daily March 10, 2020 12:00am October 15, 2020 11:40am sennosides, jail 8.6 mg oral tablet (20 sources) Start: 03-10-2020 End: 04-27-2020 take 2 tablets by mouth once daily at bedtime Sennosides (Senna Lax) 8.6 mg Tablet Discontinued 2 TAB PO Daily at bedtime March 10, 2020 12:00am April 27, 2020 4:13pm simvastatin 40 mg oral tablet (20 sources) HMG-CoA Reductase Inhibitor Start: 03-04-2020 End: 03-10-2020 take 1 tablet by mouth at bedtime Simvastatin 40 mg Tablet Discontinued 40 MG PO Bedtime March 04, 2020 12:00am March 10, 2020 8:07am Start: 03-04-2020 End: 03-10-2020 tamsulosin hydrochloride 0.4 mg oral capsule (20 sources) alpha-Adrenergic Magdiel Start: 04-30-2022 End: 07-28-2022 take 1 capsule by mouth twice daily Tamsulosin 0.4 mg capsule Discontinued 0.4 MG PO Twice daily April 30, 2022 12:00am July 28, 2022 11:13am Start: 04-30-2022 End: 07-28-2022 take 1 capsule by mouth once daily tamsulosin 0.4 mg Cap 0.4 mg = 1 cap(s), Oral, Daily, # 30 cap(s), Refills(s) 5, Pharmacy: [id number], 180, cm, 07/04/22 13:18:00 EST, Height/Length Dosing, 95.5, kg, 07/04/22 13:18:00 EST, Weight Dosing Start Date: 07/04/22 Status: Ordered Start: 04-01-2022 tamsulosin 0.4 mg Cap Refills(s) 0 Start Date: 04/01/22 Status: Ordered Start: 10-03-2021 End: 02-05-2022 take 1 capsule by mouth once daily Tamsulosin 0.4 mg Capsule Discontinued 0.4 MG PO Daily October 03, 2021 1:00am February 05, 2022 11:48am Start: 10-03-2021 End: 02-05-2022 terazosin 10 mg oral capsule (20 sources) alpha-Adrenergic Magdiel Start: 02-05-2022 End: 07-28-2022 take 1 capsule by mouth once daily Terazosin 10 mg Capsule Discontinued 10 MG PO Daily February 07, 2022 12:00am July 28, 2022 11:13am Start: 01-28-2022 take 1 capsule by [facility] once daily at bedtime terazosin 10 mg Cap 10 mg = 1 cap(s), Oral, Once a day (at bedtime), # 30 cap(s), Refills(s) 1, Pharmacy: [id number], 180, cm, 01/28/22 8:49:00 EDT, Height/Length Dosing, 110, kg, 01/28/22 8:49:00 EDT, Weight Dosing Start Date: 01/28/22 Status: Ordered traMADol hydrochloride 50 mg oral tablet (20 sources) Opioid Agonist Start: 10-15-2020 End: 08-20-2021 take 0.5 tablet by mouth once daily as needed for pain Tramadol 50 mg Tablet Discontinued 50 MG PO Daily as needed for Pain October 15, 2020 1:00am August 20, 2021 7:14pm take half daily as needed for pain Start: 05-07-2020 End: 05-30-2020 take 1 tablet by mouth every six hours as needed for pain Tramadol 50 mg Tablet Discontinued 50 MG PO Q6H as needed for Pain 60 30 May 07, 2020 12:00am May 30, 2020 10:46am Start: 05-07-2020 End: 05-30-2020 vitamin b12 1 mg oral tablet (20 sources) Vitamin B12 Start: 10-03-2021 End: 04-30-2022 take 1 tablet by mouth once daily Cyanocobalamin (Vitamin B-12) (Vitamin B-12) 1,000 mcg Tablet Discontinued 1000 MCG PO Daily October 03, 2021 1:00am April 30, 2022 9:35am Zinc (20 sources) Start: 07-02-2020 End: 10-15-2020 take 1 tablet by mouth once daily Zinc 50 mg Tablet Discontinued 50 MG PO Daily July 02, 2020 1:00am October 15, 2020 11:40am Start: 07-02-2020 End: 10-15-2020 take 1 tablet by mouth once daily Zinc 50 mg Tablet Discontinued 50 MG PO Daily July 02, [...] 11:40am zolpidem tartrate 5 mg oral tablet (20 sources) gamma-Aminobutyric Acid-ergic Agonist Start: 03-11-2020 End: 02-27-2021 take 1 tablet by mouth once daily at bedtime Zolpidem (Ambien) 5 mg tablet Discontinued 5 MG PO Daily at bedtime March 11, 2020 12:00am February 27, 2021 2:43pm Problems Active Problems Problem Classification Problem Date Documented Date Episodic/Chronic Acute and unspecified renal failure (20 sources) Uremia; Translations: [Unspecified kidney failure] 03-14-2020 Chronic Administrative/social admission (20 sources) Patient encounter status; Translations: [Other specified counseling] 06-09-2023 Episodic Calculus of urinary tract (20 sources) Kidney stone; Translations: [Calculus of kidney] Onset: 10-30-19 Resolved : 10-30-19 Episodic Cancer of prostate (20 sources) Malignant neoplasm of prostate; Translations: [Malignant tumor of prostate] Onset: 09-04-19 Chronic Chronic kidney disease (20 sources) Chronic kidney disease stage 3; Translations: [Chronic kidney disease, stage 3 (moderate)] Onset: 05-08-2003-14-2020 Chronic Chronic kidney disease (6 sources) Chronic kidney disease; Translations: [Chronic kidney disease, stage III (moderate)] Onset: 10-30-19 Resolved : 10-30-19 Deficiency and other anemia (1 source) Other pancytopenia; Translations: [Other pancytopenia] Onset: 07-03-20 Chronic Deficiency and other anemia (2 sources) Anemia co-occurrent and due to chronic kidney disease stage 3; Translations: [Anemia of chronic renal failure, stage 3 (moderate)] 02-09-2025 Chronic Deficiency and other anemia (1 source) Anemia in chronic kidney disease; Translations: [Anemia in chronic kidney disease] Onset: 06-23-20 Chronic Deficiency and other anemia (2 sources) Anemia, unspecified Onset: 10-30-19 Resolved : 10-30-19 Episodic Deficiency and other anemia (20 sources) Iron deficiency anemia, unspecified; Translations: [Iron deficiency anemia, unspecified] 04-16-2022 Episodic Diabetes mellitus with complications (20 sources) Type 2 diabetes mellitus; Translations: [Type [...] sources) Hypercholesterolemia; Translations: [Pure hypercholesterolemia, unspecified] Onset: 09-04-19 23 03-23-2019 Chronic Disorders of teeth and jaw (20 sources) Loss of teeth due to extraction; Translations: [Partial loss of teeth, unspecified cause, unspecified class] 03-08-2020 Episodic Essential hypertension (20 sources) Hypertensive disorder; Translations: [Essential (primary) hypertension] Onset: 10-30-19 Resolved : 10-30-1903-23-2019 Chronic Genitourinary symptoms and ill-defined conditions (20 sources) Urinary incontinence; Translations: [Unspecified urinary incontinence] Onset: 06-02-2001-23-2023 Chronic Genitourinary symptoms and ill-defined conditions (20 sources) History of urinary tract infection; Translations: [Personal history of urinary (tract) infections] Onset: 12-11-19 Episodic Hyperplasia of prostate (20 sources) Benign prostatic hypertrophy with outflow obstruction; Translations: [Benign prostatic hyperplasia with lower urinary tract symptoms] Onset: 12-11-19 Chronic Hypertension with complications and secondary hypertension (20 sources) Malignant hypertensive chronic kidney disease; Translations: [...] 10-30-19 Resolved : 10-30-19 Chronic Nutritional deficiencies (20 sources) Vitamin D deficiency; Translations: [Vitamin D deficiency, unspecified] 03-14-2020 Chronic Nutritional deficiencies (20 sources) Cobalamin deficiency; Translations: [Deficiency of other specified B group vitamins] 03-14-2020 Episodic Osteoarthritis (1 source) Unspecified osteoarthritis, unspecified site; Translations: [UNSPECIFIED OSTEOARTHRITIS UNS SITE] Onset: 12-16-19 Chronic Other aftercare (1 source) Other detention (current) drug therapy; Translations: [OTH VOIP NETWORK TECHNICIAN CURRENT DRUG THERAPY] Onset: 12-16-19 Episodic Other aftercare (3 sources) halfway (current) use of insulin; Translations: [JAIL CURRENT USE OF INSULIN] Onset: 12-16-19 Episodic Other aftercare (1 source) halfway (current) use of aspirin; Translations: [JAIL CURRENT USE OF ASPIRIN] Onset: 12-16-19 Episodic Other aftercare (1 source) terminal worker (current) use of oral hypoglycemic drugs; Translations: [JAIL USE ORAL HYPOGLYCEMIC DX] Onset: 12-16-19 Episodic Other circulatory disease (20 sources) Suspected heart failure; Translations: [Other specified symptoms and signs involving the circulatory and respiratory systems] 03-14-2020 Episodic Other diseases of bladder and urethra (10 sources) Detrusor overactivity; Translations: [Overactive bladder] Onset: [...] Chronic Other diseases of bladder and urethra (19 sources) Neurogenic dysfunction of the urinary bladder; Translations: [Neuromuscular dysfunction of bladder, unspecified] Onset: 12-20-19 Chronic Other diseases of bladder and urethra (20 sources) Noncompliant bladder; Translations: [Neuromuscular dysfunction of bladder, unspecified] 12-19-2022 Chronic Other diseases of bladder and urethra (1 source) Neurogenic bladder; Translations: [Neuromuscular dysfunction of bladder, unspecified] Chronic Other diseases of bladder and urethra (4 sources) Neuromuscular dysfunction of bladder, unspecified; Translations: [Low bladder compliance] Onset: 06-02-20 24 06-05-2024 Chronic Other diseases of kidney and ureters (20 sources) 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; Translations: [Other specified disorders of kidney and ureter] 03-14-2020 Chronic Other diseases of kidney and ureters (20 sources) Other specified disorders of kidney and ureter; Translations: [Other specified disorders of kidney and ureter] Onset: 06-23-20 24 04-16-2022 Chronic Other diseases of kidney and ureters (6 sources) Urinary tract obstruction; Translations: [Other obstructive and reflux uropathy] Onset: 12-11-19 Episodic Other diseases of kidney and ureters (20 sources) Hydronephrosis; Translations: [Unspecified hydronephrosis] Onset: 10-09-19 Episodic Other diseases of kidney and ureters (20 sources) Bilateral hydronephrosis 10-09-2022 Episodi c Other diseases of kidney and ureters (20 sources) Hydroureter 10-09-2022 Episodic Other diseases of kidney and ureters (20 sources) Hydroureteronephrosis 10-09-2022 Episodic Other diseases of kidney and ureters (1 source) Hydronephrosis with ureteral stricture, not elsewhere classified; Translations: [HYDRONEPHROSIS W/URETRL STRICT NEC] Onset: 12-16-19 Episodic Other diseases of kidney and ureters (20 sources) Stricture of ureter; Translations: [Crossing vessel and stricture of ureter without hydronephrosis] Onset: 12-20-19 Episodic Other diseases of kidney and ureters (1 source) Acquired stricture of ureter; Translations: [Crossing vessel and stricture of ureter without hydronephrosis] Episodic Other diseases of kidney and ureters (3 sources) Crossing vessel and stricture of ureter without hydronephrosis; Translations: [Ureteral stricture] Onset: 12-15-19 Episodic Other gastrointestinal disorders (20 sources) Occult blood in stools; Translations: [Other fecal abnormalities] 03-14-2020 Episodic Other gastrointestinal disorders (20 sources) Constipation; Translations: [Constipation, unspecified] 03-14-2020 Episodic Other hematologic conditions (20 sources) History of anemia vitamin B12 deficient; Translations: [Personal history of diseases of the blood and blood-forming organs and certain disorders involving the immune mechanism] 01-23-2023 Episodic Other hematologic conditions (20 sources) Personal history of diseases of the blood and blood-forming organs and certain disorders involving the immune mechanism; Translations: [Personal history of diseases of blood and blood-forming organs] 02-19-2023 Episodic Other infections; including parasitic (2 sources) History of sepsis 03-03-2025 Episodic Other nervous system disorders (3 sources) Polyneuropathy due to drug; 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 Other nervous system disorders (20 sources) Peripheral neuropathy due to and following chemotherapy; Translations: [Drug-induced polyneuropathy] 06-04-2020 Chronic Other nervous system disorders (20 sources) Drug-induced polyneuropathy; Translations: [Polyneuropathy due to other toxic agents] 04-16-2022 Chronic Other nervous system disorders (1 source) Polyneuropathy, unspecified; Translations: [POLYNEUROPATHY UNSPECIFIED] Onset: 12-16-19 Chronic Other non-traumatic joint disorders (15 sources) Shoulder pain; Translations: [Pain in left shoulder] 03-14-2020 Episodic Other non-traumatic joint disorders (20 sources) Pain in left shoulder; Translations: [Left shoulder pain] 03-14-2020 Episodic Other nutritional; endocrine; and metabolic disorders (20 sources) Hypophosphatemia; Translations: [Other disorders of phosphorus metabolism] 10-22-2023 Chronic Other nutritional; endocrine; and metabolic disorders (20 sources) Other disorders of phosphorus metabolism; Translations: [Disorders of phosphorus metabolism] Onset: 06-23-20 Chronic Other skin disorders (20 sources) Eruption; Translations: [Rash and other nonspecific skin eruption] 02-27-2021 Episodic Other skin disorders (20 sources) Rash and other nonspecific skin eruption; Translations: [Rash and other nonspecific skin eruption] 04-16-2022 Episodic Phlebitis; thrombophlebitis and thromboembolism (20 sources) Thrombophlebitis of superficial vein of left upper limb; Translations: [Phlebitis and thrombophlebitis of other sites] 05-07-2020 Episodic Residual codes; unclassified (2 sources) Bone marrow transplant status; 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 Chronic Residual codes; unclassified (13 sources) History of bone marrow transplant; 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 Chronic Residual codes; unclassified (16 sources) Family history of cancer; Translations: [Family history of malignant neoplasm of prostate] Onset: 12-11-19 Episodic Residual codes; unclassified (20 sources) Family history of prostate cancer 11-13-2020 Episodic Residual codes; unclassified (20 sources) Insomnia; Translations: [Insomnia, unspecified] 03-14-2020 Episodic Residual codes; unclassified (20 sources) Personal history of other medical treatment; Translations: [Other specified personal history presenting hazards to health] 04-16-2022 Episodic Residual codes; unclassified (1 source) Family history of malignant neoplasm of prostate; Translations: [FAMILY HX MALIG NEOPLASM PROSTATE] Onset: 12-16-19 Episodic Residual codes; unclassified (2 sources) Other specified postprocedural states; Translations: [OTH SPECIFIED POSTPROCEDURAL STATES] Onset: 05-08-20 Episodic Residual codes; unclassified (6 sources) History of hemodialysis; Translations: [Personal history of other medical treatment] 05-07-2020 Episodic Rheumatoid arthritis and related disease (20 sources) Rheumatoid arthritis; Translations: [Rheumatoid arthritis, unspecified] Onset: 12-16-19 23 03-23-2019 Chronic Unclassified (20 sources) Asymptomatic microscopic hematuria 04-18-2022 Unclassified (20 sources) Finding of sensation of bladder 10-16-2022 Unclassified (1 source) CHRN KIDNEY DISEASE STG 3 UNSP; Translations: [CHRN KIDNEY DISEASE STG 3 UNSP] Onset: 12-16-19 Unclassified (1 source) CONTACT W/AND (SUSP) EXPOS COVID-19; Translations: [CONTACT W/AND (SUSP) EXPOS COVID-19] Onset: 08-27-19 Unclassified (3 sources) Autogenerated Problem Onset: 03-26-2003-26-2025 Urinary tract infections (20 sources) Acute urinary tract infection; Translations: [Urinary tract infection, site not specified] Onset: 08-04-2008-20-2021 Episodic Past or Other Problems Problem Classification Problem Date Documented Date Episodic/Chronic Acute and unspecified renal failure (20 sources) Acute kidney failure, unspecified; Translations: [Injury of kidney] Onset: 10-29-2021 Resolved: 10-29-2021 Episodic Deficiency and other anemia (20 sources) Iron deficiency anemia; Translations: [Iron deficiency anemia, unspecified] Onset: 02-11-2023 06-04-2020 Episodic Fluid and electrolyte disorders (20 sources) Hyperkalemia; Translations: [Hyperkalemia] Onset: 10-29-2021 Resolved: 10-29-2021 Episodic Non-Hodgkin`s lymphoma (1 source) Personal history of other malignant neoplasms of lymphoid, hematopoietic and related tissues; Translations: [PERS HX OTH MAL MAYCOL LYMPH AND HEMATOPET] Onset: 08-04-2022 Episodic Other aftercare (1 source) terminal worker (current) use of anticoagulants; Translations: [VOIP NETWORK TECHNICIAN CURRNT USE ANTICOAGULANTS] Onset: 01-24-2022 Episodic Other diseases of bladder and urethra (1 source) Unspecified urethral stricture, male, meatal; Translations: [UNSP URETHRAL STRICTURE MALE MEATAL] Onset: 09-04-2022 Episodic Other diseases of kidney and ureters (16 sources) Unspecified hydronephrosis; Translations: [Hydronephrosis] Onset: 12-10-2022 Episodic Screening and history of mental health and substance abuse codes (1 source) Personal history of nicotine dependence; Translations: [PERSONAL HISTORY OF NICOTINE DEPEND] Onset: 09-04-2022 Episodic Results Test Name Value Interpretation Reference Range Facility BRIEF OP NOTon 04-13-2025 BRIEF OP NOT HNO ID: [id number] Author: YAMILE GARCIA RT(R) Service: Radiology Author Type: Technologist Type: Brief Op Note Filed: 04/13/2025 12:30 Note Text: BRIEF OPERATIVE / PROCEDURE NOTE LOG ID: [id number] SURGERY/PROCEDURE DATE: 04/13/2025 INCISION/PROCEDURE START TIME: 12:01 PM INCISION CLOSE/PROCEDURE END TIME: 12:18 PM SURGEON(S)/PROCEDURALIST(S ) AND CARPENTER ASSISTANT(S): Surgeons and Role: * Mansoor Rascon MD - Primary * Yamile Garcia RRA Meter Mechanic - Secondary Preoperative Concerns /Risks: None SURGERY/PROCEDURE(S): Bilateral nephrostomy tube exchange ANESTHESIA: Procedural Sedation FINDINGS: Image guided bilateral nephrostomy tube exchange. Left 10.2F Carter French and right 10F Nephrostomy tube connected to a gravity drainage bag and instructed to flush with 10mL NaCl 0.9% every 24 hours. ESTIMATED BLOOD LOSS: 0 ml SPECIMENS: None Intraoperative Complication/Events: None DRAINS: Unmodified Left 10.2F Carter French and Right 10F Nephrostomy CLOSURE TECHNIQUE: Primary PRE-OP/PRE-PROCEDURE DIAGNOSIS: Ureteral stricture POST-OP/POST-PROCEDURE DIAGNOSIS: Same as Preop SIGNATURE: RT Екатерина(R) PATIENT NAME: Patsy Cunningham DATE: April 13, 2025 TIME: 12:27 PM [facility] 04-13-2025 [facility] Telephone (XRPR) -- CUNNINGHAMPATSY ([id number]) 1945 M Date Time Provider Department 04/13/25 STANFORD SALDIVAR AVXRPR During your visit today, we recorded the following information about you: Stanford Saldivar RN 04/13/2025 1:13 PM Signed Nephrostomy tube teaching information sent to pt My Chart Allergies As of Date: 04/13/2025 Noted Allergy Reaction MIRABEGRON 06/27/2022 6 - Diarrhea 8 - GI Upset GABAPENTIN 08/20/2021 2 - Rash Date Reviewed: 04/13/2025 Reviewed by: Stanford Saldivar RN - Fully Assessed Reason for Visit: Patient Update [1234] Prescriptions as of 04/13/2025 - aspirin 81 mg chewable tablet mg [...] INSULIN 100 unit/mL (3 mL) - insulin lispro (HUMALOG KWIKPEN) 100 unit/mL pen Inject 8 Units subcutaneously three times daily before meals. Plus sliding scale. - docusate sodium (STOOL SOFTENER) 100 mg capsule Take 100 mg by mouth twice daily as needed for constipation. - phosphorus (PHOSPHOROUS) 250 mg tablet Take 1 tablet by mouth three times daily. 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] 07/03/2022 Rheumatoid arthritis (HCC) [M06.9] 12/15/2022 Prostate cancer (HCC) [C61] 02/11/2023 Benign prostatic hyperplasia with urinary obstr*12/10/2021 Stage 3 chronic kidney disease (HCC) [N18.30] 05/08/2022 Diabetes (HCC) [E11.9] 02/11/2023 Hypercholesterolemia [E78.00] 09/04/2022 HTN (hypertension) [I10] 02/11/2023 Iron deficiency anemia [D50.9] 02/11/2023 Encounter Status:Closed by STANFORD SALDIVAR on 04/13/25 [facility] Telephone (AVXRPR) -- GENEPATSY Castillo ([id number]) 1945 M Date Time Provider Department 04/13/25 PIERO HUDDLESTON AVXRPR During your visit today, we recorded the following information about you: Piero Huddleston RN 04/13/2025 12:13 PM Signed Tube Exchange Appointment Request Form Person filling out this form: Piero Huddleston RN Date: April 13, 2025 Time: 12:13 PM Patient Name: Patsy Cunningham Patient What type of tube is this? Nephrostomy or nephroureteral (tube in the back) Does this tube need exchanged? Yes, How many weeks? 6 weeks Per physician direction, does this need to be physician specific? No Does this patient require DAVIN? No Per physician, can this exchange be done in the region? [place] / [place] ( [place] ) If the patient has an already existing exchange appointment can that one be cancelled? No Any other pertinent information needed for schedulers?n/a Ana Marques 04/13/2025 1:03 PM Signed Pt is due 05/25. Need qgenda schedule. Allergies As of Date: 04/13/2025 Noted Allergy Reaction MIRABEGRON 06/27/2022 6 - Diarrhea 8 - GI Upset GABAPENTIN 08/20/2021 2 - Rash Date Reviewed: 04/13/2025 Reviewed by: Stanford Saldivar RN - Fully Assessed Reason for Visit: IR Outpatient Tube Appointment Request [[id number]] Prescriptions as of 04/13/2025 - aspirin 81 mg chewable tablet mg [...] INSULIN 100 unit/mL (3 mL) - insulin lispro (HUMALOG KWIKPEN) 100 unit/mL pen Inject 8 Units subcutaneously three times daily before meals. Plus sliding scale. - docusate sodium (STOOL SOFTENER) 100 mg capsule Take 100 mg by mouth twice daily as needed for constipation. - phosphorus (PHOSPHOROUS) 250 mg tablet Take 1 tablet by mouth three times daily. 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] 07/03/2022 Rheumatoid arthritis (HCC) [M06.9] 12/15/2022 Prostate cancer (HCC) [C61] 02/11/2023 Benign prostatic hyperplasia with urinary obstr*12/10/2021 Stage 3 chronic kidney disease (HCC) [N18.30] 05/08/2022 Diabetes (HCC) [E11.9] 02/11/2023 Hypercholesterolemia [E78.00] 09/04/2022 HTN (hypertension) [I10] 02/11/2023 Iron deficiency anemia [D50.9] 02/11/2023 Encounter Status:Closed by ANA MARQUES on 04/13/25 [facility] IR EXCHANGE NEPH TUBE BILATo n 04-13-2025 IR EXCHANGE NEPH TUBE BILAT * * *Final Report* * * DATE OF EXAM: Apr 13 2025 12:24PM [facility] [id number] - IR EXCHANGE NEPH TUBE BILAT / PROCEDURE REASON: Hydronephrosis * * * * Physician Interpretation * * * * PROCEDURE: GENITOURINARY CATHETER EXCHANGE Procedural Personnel Attending physician(s): Mansoor Rascon MD Fellow physician(s): None Resident physician(s): None Advanced practice provider(s): None Medical Student(s): None Pre-procedure diagnosis: Bladder dysfunction Post-procedure diagnosis: Same Indication: Routine catheter exchange Additional clinical history: 80-year-old male with potential bladder dysfunction. Patient had bilateral nephrostomy placed earlier for diversion. Patient is here for routine catheter exchange. PROCEDURE SUMMARY - Target organ: Bilateral [place] kidneys - Antegrade nephrostogram(s) via the existing access - Nephrostomy tube exchange - Additional procedure(s): None PROCEDURE DETAILS: Pre-procedure Consent: Risks, benefits, treatment options, potential complications and personnel to be involved were discussed (including the risks of radiation exposure, contrast and anesthesia administration, and any equipment needed for the procedure to ensure best possible outcome) with the patient and all questions were answered and consent was obtained prior to procedure. Premedicated for contrast allergy: n/a Transfusion of blood products: No Medication reconciliation: The patient's medications and allergies were reviewed in the electronic medical record and reconciled to the proposed procedure/treatment. Lindsay-procedure discussion: The appropriate elements of the pre-procedure discussion, safety check list and sign-out were performed. Time out: A time out was performed immediately prior to procedure start with the nursing and interventional team, correctly identifying the name, date of , procedure, anatomy (including marking of site and side if applicable), patient position, procedure consent form, relevant diagnostic and radiology test results, antibiotic administration if applicable, safety precautions, and procedure-specific equipment needs. Start of procedure: 1201 End of procedure: 1218 Patient position: Prone Preparation: The site was prepared and draped using all elements of maximal sterile barrier technique including sterile gloves, sterile gown, cap, mask, large sterile sheet, hand hygiene and cutaneous antisepsis. Antibiotics: Cefazolin Antibiotic infusion start time: 1130 Contrast Contrast agent: OMNIPAQUE 240 Contrast volume (mL): 15 Image Guidance: Fluoroscopic guidance. Radiation Dose FLUOROSCOPIC RADIATION SUMMARY: Plane A, Air Kerma: 14.0 mGy Dose Area Product (DAP): 92.45 Fluoro Time: 3:18 min:sec Radiation dose exceed 5 Gy: No If radiation dose exceeded 5 Gy, was counseling and instructional brochure provided: N/A Anesthesia/sedation Level of anesthesia/sedation: Moderate sedation (conscious sedation) Anesthesia/sedation administered by: Independent trained observer under attending supervision with continuous monitoring of the patient?s level of consciousness and physiologic status Total intra-service sedation time (minutes): 25 Local anesthesia: 1 % lidocaine Right genitourinary catheter exchange Local anesthesia was administered. Initial nephrostogram was performed. A wire was placed through the existing tube and it was removed. The new tube was advanced over the wire and position was confirmed with contrast injection. Pre-existing genitourinary catheter: 10 Latvian Carter-French catheter Genitourinary catheter(s) placed: 10 Latvian Carter-French catheter Findings: [place] loop within the renal pelvis. External catheter securement: Non-absorbable suture Left genitourinary catheter exchange Local anesthesia was administered. Initial nephrostogram was performed. A wire was placed through the existing tube and it was removed. The new tube was advanced over the wire and position was confirmed with contrast injection. Pre-existing genitourinary catheter: 10 Latvian Carter-French catheter Genitourinary catheter(s) placed: 10 Latvian Carter-French catheter Findings: [place] loop within the renal pelvis External catheter securement: Non-absorbable suture Additional genitourinary system intervention Genitourinary intervention: None Location of intervention: Not applicable Device used: Not applicable Description of intervention: Not applicable Post-intervention findings: Not applicable Additional Details Additional description of procedure: None Equipment details: None Estimated blood loss (mL): Less than 10 Number and Type of Removed Specimens: 0: N/A Standardized report: [email or web address] Complications There were no immediate complications and no other complications. Conclusion The patient was comfortable and was tra (more content not included)... [facility] NURSING PROGon 04-13-2025 NURSING PROG HNO ID: [id number] Author: STANFORD SALDIVAR RN Service: Radiology Author Type: Registered Nurse Type: Nursing Progress Note Filed: 04/13/2025 13:14 Note Text: [facility] INTERVENT[facility] RADIOLOGY CONSULT NOTE [facility] April 13, 2025 Patsy Cunningham Tube Education Note Tube teaching done with patient and family at bedside. Home going pamphlet reviewed with patient. Improper tube functioning reviewed including: no tube output, leaking of bile around tube, physical symptoms (RUQ pain, fever,chills, nausea,vomiting, jaundice). All questions answered. Supplies issued. Discussed with bedside nursing staff to have patient and family watch instructional videos and demonstrate flushing and with next dressing change. Patient scheduled for follow up in 6 weeks. Nephrostomy Additional printouts of at-home instructions for care of nephrostomy tube can be located at: At-Home Instructions After Placement of a Nephrostomy Tube A patient education video for care of a nephrostomy tube is available on [employer]. Please use this link: [email or web address] SIGNATURE: Stanford Saldivar RN PATIENT NAME: Patsy Cunningham DATE: April 13, 2025 TIME: 12:46 PM PAGER: [facility] NURSING PROG HNO ID: [id number] Author: VIVI GUTIERREZ RN Service: Nursing Author Type: Registered Nurse Type: Nursing Progress Note Filed: 04/13/2025 10:35 Note Text: PATIENT EDUCATION TOPIC: PROCEDURE / SURGERY: Procedure/Surgery: nephrostomy tube change PATIENT NAME: Patsy Cunningham PATIENT LOCATION: AV Rad Proc/AV Rad Proc READINESS TO LEARN COGNITIVE ABILITY: Alert and oriented MOTIVATION TO LEARN: Interested FAMILY SUPPORT: High - Very involved in pt care INSTRUCTION PROVIDED TO: Patient and Spouse PATIENT LEARNS BEST BY: Written Instruction - Hand-outs Verbal Instruction FACTORS AFFECTING LEARNING: None PHYSICAL LIMITATIONS AFFECTING LEARNING: None LEARNING RESPONSE DIAGNOSIS: ADULT: ureteral stricture PATIENT/FAMILY RESPONSE: Verbalizes understanding of: POST-PROCEDURE INSTRUCTIONS-Correct actions to take to reduce post procedure complications PRE-PROCEDURE INSTRUCTIONS-Correct action to take to follow pre-procedure instructions METHOD OF INSTRUCTION: Individual instruction Written instruction/Handouts Verbal instruction FOLLOW-UP PLAN: Patient instructed to call with any further issues Follow-up with Primary Care INSTRUCTIONAL AIDS USED: preprinted discharge instruction sheets titled after sedation and after a tube change SUPPLEMENTAL MATERIAL PROVIDED TO PATIENT: None REFERRAL (RECOMMENDATION): None Electronically Signed By: Vivi Gutierrez [facility] Basic Metabolic Panelon 03-18 GFR/1.73 sq M.predicted MDRD (S/P/Bld) [Vol rate/Area] 29.063 mL/min/{1.73_m2} Normal [facility] Comment on above: Performed By: #### B MP ####[address] Basophils [#/volume] in Bloo d by Automated countOrdered By: Brook Huddleston on 04-05-2025 Basophils (Bld) [#/Vol] 0.0 10*3/uL Normal 0.0-0.2 [facility] Comment on above: Result Comment: PERF ORMED BY:[address], [place] [id number] MEDICAL DIRECTORLUIS FELIPE MARSH M.D. Performed By: #### C BC ####[place] [id number] [facility] Basophils/100 leukocytes in Blood by Automated countOrdered By: Brook Huddleston on 04-05-2025 Basophils/100 WBC (Bld) 0.6 % Normal . F [facility] Comment on above: Performed By: #### C BC ####[place] [id number] [place] [id number] [facility] CBC W Auto Differential pane l (Bld)on 04-05-2025 Basophils (Bld) [#/Vol] 0 10*3/uL 0.0 - 0.2 10*3/uL [facility] Basophils/100 WBC Manual cnt (Syn fld) 0.6 % . [facility] Eosinophils (Bld) [#/Vol] 0.7 10*3/uL High 0.0 - 0.45 10*3/uL [facility] Eosinophils/100 WBC Manual cnt (Syn fld) 8.8 % . [facility] Erythrocyte distribution width (RBC) [Ratio] 16.1 % High 12.0 - 14.8 % [facility] Hematocrit (Bld) [Volume fraction] 31.2 % Low 38.8 - 50.0 % [facility] Hemoglobin (Bld) [Mass/Vol] 10.6 g/dL Low 13.0 - 17.0 g/dL [facility] Interpretation and review of laboratory results Abnormal [facility] Lymphocytes (Bld) [#/Vol] 1.2 10*3/uL 1.00 - 4.8 10*3/uL [facility] Lymphocytes/100 WBC Manual cnt (Syn fld) 14.6 % . [facility] MCH (RBC) [Entitic mass] 35.6 pg High 27.5 - 35.2 pg [facility] MCHC (RBC) [Mass/Vol] 34.1 g/dL 32.5 - 35.6 g/dL [facility] MCV (RBC) [Entitic vol] 104.4 fL High 83.5 - 101 fL [facility] Monocytes (Bld) [#/Vol] 0.6 10*3/uL 0.0 - 0.8 10*3/uL [facility] Monocytes+Macrophages/1 00 WBC Manual cnt (Syn fld) 7 % . [facility] Neutrophils (Bld) [#/Vol] 5.5 10*3/uL 1.8 - 7.7 10*3/uL [facility] Neutrophils/100 WBC Manual cnt (Syn fld) 69 % . [facility] NRBC 0.1 /100{WBC} 0 - 0.5 /100{WBC} [facility] Platelet mean volume (Bld) [Entitic vol] 7.3 fL 6.6 - 10.1 fL [facility] Platelets (Bld) [#/Vol] 210 10*3/uL 150 - 450 10*3/uL [facility] RBC LM.HPF (Urine sed) [#/Area] 2.99 10*6/uL Low 3.90 - 5.60 10*6/uL [facility] WBC (Bld) [#/Vol] 8 10*3/uL 4.1 - 10.5 10*3/uL [facility] WBC LM.HPF (Urine sed) [#/Area] 8 [CFU]/mL 4.1 - 10.5 [CFU]/mL [facility] CNPNon 04-05-2025 CNPN Telephone (AVXRPR) -- PATSY CUNNINGHAM ([id number]) 1945 M Date Time Provider Department 04/05/25 STANFORD SALDIVAR [facility] During your visit today, we recorded the following information about you: Stanford Saldivar RN 04/05/2025 11:18 AM Addendum Spoke with Piedad and pt on the line, aware of below instructions RADIOLOGY PROCEDURE INSTRUCTIONS: You are scheduled for a Bilateral Nephrostomy tube change, on March You are to arrive at 1030 am and check in at [facility]: Radiology Outpatient Desk [id number]. You can expect to be here for 2-3 hours. Address: [place] [address] Diet: Do not eat any solid food after midnight the night before your procedure. You may drink clear liquids until 0930 am the day of your procedure, which means black coffee, apple juice, tea, jello, Gatorade, or water only. Medications: Please take prescribed medications such as heart, blood pressure, anti-seizure, and chronic pain medications with a sip of clear liquids. Bring your current medication list. Radiology recommends these medication restrictions: If you are taking any medication that is a blood thinner, hypoglycemic, weight loss agent, etc., you may need to hold this medication prior to procedure. Not stopping the medication correctly may result in your procedure being canceled. If ok with your prescribing provider: No need to hold Aspirin prior to this procedure. If you are diabetic please contact your physician regarding diet restrictions and managing insulin/diabetes medications pre-procedure: Per no longer taking Metformin Hold short acting insulin the day of procedure Long acting insulin, take ? dose If on mixed insulin - if BG> than 200 take half the dose If BG less < 200- don't take Special concerns: It is okay to shower/bathe the morning of your procedure. There may be bathing restrictions post procedure. Do you have any attached medical devices? Damion monitor If yes, the device may need to be removed before entering the procedure room. Do you use CPAP, BIPAP, or oxygen? No. Allergies: Allergies reviewed: Yes Do you have a contrast dye allergy? No. Labs: Needs INR and CBC Pt aware needs to have above lab work. Stated is having lab drawn at [facility]. She will call pt Dr. Parham to add Inr and CBC to current blood work. Advised to bring in copies of lab work. Lab work needs to be drawn? Yes, labs need to be drawn at least one day prior to procedure. Please bring a copy of the results if they are not done at a [facility] facility. [place]/Transportation: How will you be arriving for your procedure? Private car. If you will be arriving via ambulance or public transportation, please call to discuss. You will need a responsible adult to accompany you to and from the procedure. We will verify your ride home upon arrival. Minors/visitors requiring supervision cannot accompany you unless there is another responsible adult with them. Child and/or dependent care arrangements need to be made. If you need to cancel or reschedule your procedure, please call our user support analyst supervisor: Teo Johansen [phone]; 8am - 4pm M-F If you have any additional questions please call: [place] [facility] nurses desk at [phone] 8am - 4pm M-F. Allergies As of Date: 04/05/2025 Noted Allergy Reaction MIRABEGRON 06/27/2022 6 - Diarrhea 8 - GI Upset GABAPENTIN 08/20/2021 2 - Rash Date Reviewed: 03/16/2025 Reviewed by: Krista Tamayo RN - Fully Assessed Reason for Visit: Radiology Pre Procedure Instructions [1506] Prescriptions as of 04/05/2025 - aspirin 81 mg chewable tablet mg [...] INSULIN 100 unit/mL (3 mL) - insulin lispro (HUMALOG KWIKPEN) 100 unit/mL pen Inject 8 Units subcutaneously three times daily before meals. Plus sliding scale. - docusate sodium (STOOL SOFTENER) 100 mg capsule Take 100 mg by mouth twice daily as needed for constipation. - phosphorus (PHOSPHOROUS) 250 mg tablet Take 1 tablet by mouth three times daily. 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 Normal [facility] Calcium [Mass/volume] in Ser um or PlasmaOrdered By: Orquidea Cortez on 04-05-2025 Calcium [Mass/Vol] 8.9 mg/dL Normal 8.6-10.3 [facility] Comment on above: Result Comment: PERF ORMED BY:[facility] [id number] MEDICAL DIRECTORLUIS FELIPE MARSH M.D. Performed By: #### B MP ####[address] Carbon dioxide, total [Moles /volume] in Serum or PlasmaOrdered By: Orquidea Cortez on 04-05-2025 CO2 [Moles/Vol] 26.7 mmol/L Normal 21.0-31.0 [facility] Comment on above: Performed By: #### B MP ####[address] Chloride [Moles/volume] in S valeria or PlasmaOrdered By: Orquidea Cortez on 04-05-2025 Chloride [Moles/Vol] 105 mmol/L Normal 98-107 [facility] Comment on above: Performed By: #### B MP ####[address] Complete Blood Count Auto Di ffon 04-05-2025 Mean Corpuscular HGB Conc 34.1 g/dL Normal 32.5-35.6 [facility] Comment on above: Performed By: #### C BC ####[address] NRBC% 0.1 /100{WBC} Normal 0-0.5 [facility] Comment on above: Performed By: #### C BC ####[address] White Blood Count 8.0 [CFU]/mL Normal 4.1-10.5 [facility] Comment on above: Performed By: #### C BC ####[address] Creatinine [Mass/volume] in Serum or PlasmaOrdered By: Orquidea Cortez on 04-05-2025 Creatinine [Mass/Vol] 2.23 mg/dL High 0.70-1.30 [facility] Comment on above: Performed By: #### B MP ####[address] Eosinophils [#/volume] in Bl ood by Automated countOrdered By: Brook Huddleston on 04-05-2025 Eosinophils (Bld) [#/Vol] 0.7 10*3/uL High 0.0-0.45 [facility] Comment on above: Performed By: #### C BC ####[address] Eosinophils/100 leukocytes i n Blood by Automated countOrdered By: Brook Huddleston on 04-05-2025 Eosinophils/100 WBC (Bld) 8.8 % Normal . [facility] Comment on above: Performed By: #### C BC ####[address] Erythrocyte distribution wid th [Ratio] by Automated countOrdered By: Brook Huddleston on 04-05-2025 Erythrocyte distribution width (RBC) [Ratio] 16.1 % High 12.0-14.8 [facility] Comment on above: Performed By: #### C BC ####[address] Erythrocytes [#/volume] in B lood by Automated countOrdered By: Brook Huddleston on 04-05-2025 RBC (Bld) [#/Vol] 2.99 10*6/uL Low 3.90-5.60 [facility] Comment on above: Performed By: #### C BC ####[address] Glomerular filtration rate [ Volume Rate/Area] in Serum, Plasma or Blood by CreatinineOrdered By: Orquidea Cortez on 04-05-2025 Glomerular filtration rate [Volume Rate/Area] in Serum, Plasma or Blood by Creatinine 29.063 mL/Min [facility] Glucose [Mass/volume] in Ser um or PlasmaOrdered By: Orquidea Cortez on 04-05-2025 Glucose [Mass/Vol] 106 mg/dL High 70-100 [facility] Comment on above: ADA recommended refe rence rangeRandom Glucose Reference Range is dependent on time and content of last meal. Glucose of more than 200 mg/dL in a nonstressed, ambulatory subject supports the diagnosis of Diabetes Mellitus. Result Comment: Ignacio om Glucose Reference Range is dependent on time and content of last meal. Glucose of more than 200 mg/dL in a nonstressed, ambulatory subject supports the diagnosis of Diabetes Mellitus. ADA recommended reference range Performed By: #### B MP ####[place] [id number] [facility] Hematocrit [Volume Fraction] of Blood by Automated countOrdered By: Brook Huddleston on 04-05-2025 Hematocrit (Bld) [Volume fraction] 31.2 % Low 38.8-50.0 [facility] Comment on above: Performed By: #### C BC ####[place] [id number] [facility] Hemoglobin [Mass/volume] in BloodOrdered By: Brook Huddleston on 04-05-2025 Hemoglobin (Bld) [Mass/Vol] 10.6 g/dL Low 13.0-17.0 [facility] Comment on above: Performed By: #### C BC ####[place] [id number] [facility] INR in Platelet poor plasma by Coagulation assayOrdered By: Carito Martell on 04-05-2025 INR Coag (PPP) [Relative time] 1.0 {INR} Normal [facility] Comment on above: INR Therapeutic Rang e A) Pre- and Peroperative OAT started two weeks before surgery. NOT HIP SURGERY: 1.5 - 2.5 HIP SURGERY: 2 - 3B) Primary and secondary prevention of venous THROMBOSIS: 2 - 3C) Active venous thrombosis, pulmonary embolismand prevention of recurrent venous thrombosis: 2 - 3D) Prevention of arterial thromboembolismincluding patients with mechanical heart valves: 3 - 4.5 Result Comment: INR Therapeutic Range A) Pre- and Peroperative OAT started two weeks before surgery. NOT HIP SURGERY: 1.5 - 2.5 HIP SURGERY: 2 - 3 B) Primary and secondary prevention of venous THROMBOSIS: 2 - 3 C) Active venous thrombosis, pulmonary embolism and prevention of recurrent venous thrombosis: 2 - 3 D) Prevention of arterial thromboembolism including patients with mechanical heart valves: 3 - 4.5PERFORMED BY:[address] [place], [place] [id number] MEDICAL NATASHA MARSH M.D. Performed By: #### P T ####[address] Leukocytes [#/volume] correc lizbet for nucleated erythrocytes in Blood by Automated counOrdered By: Brook Huddleston on 04-05-2025 WBC corrected for nucl RBC Auto (Bld) [#/Vol] 8.0 10*3/uL 4.1-10.5 [facility] Leukocytes [#/volume] in Blo od by Automated countOrdered By: Brook Huddleston on 04-05-2025 WBC (Bld) [#/Vol] 8.0 10*3/uL Normal 4.1-10.5 [facility] Comment on above: Performed By: #### C BC ####[address] Lymphocytes [#/volume] in Bl ood by Automated countOrdered By: Brook Huddleston on 04-05-2025 Lymphocytes (Bld) [#/Vol] 1.2 10*3/uL Normal 1.00-4.8 [facility] Comment on above: Performed By: #### C BC ####[address] Lymphocytes/100 leukocytes i n Blood by Automated countOrdered By: Brook Huddleston on 04-05-2025 Lymphocytes/100 WBC (Bld) 14.6 % Normal . [facility] Comment on above: Performed By: #### C BC ####[address] MCH [Entitic mass] by Automa lizbet countOrdered By: Brook Huddleston on 04-05-2025 MCH (RBC) [Entitic mass] 35.6 pg High 27.5-35.2 [facility] Comment on above: Performed By: #### C BC ####[address] MCHC Auto (RBC) [Mass/Vol]Or dered By: Brook Huddleston on 04-05-2025 MCHC (RBC) [Mass/Vol] 34.1 g/dL 32.5-35.6 [facility] MCV [Entitic volume] by Auto mated countOrdered By: Brook Huddleston on 04-05-2025 MCV (RBC) [Entitic vol] 104.4 fL High 83.5-101 F [facility] Comment on above: Performed By: #### C BC ####[address] Monocytes [#/volume] in Bloo d by Automated countOrdered By: Brook Huddleston on 04-05-2025 Monocytes (Bld) [#/Vol] 0.6 10*3/uL Normal 0.0-0.8 [facility] Comment on above: Performed By: #### C BC ####[address] Monocytes/100 leukocytes in Blood by Automated countOrdered By: Brook Huddleston on 04-05-2025 Monocytes/100 WBC (Bld) 7.0 % Normal . [facility] Comment on above: Performed By: #### C BC ####[address] Neutrophils [#/volume] in Bl ood by Automated countOrdered By: Brook Huddleston on 04-05-2025 Neutrophils (Bld) [#/Vol] 5.5 10*3/uL Normal 1.8-7.7 [facility] Comment on above: Performed By: #### C BC ####[address] Neutrophils/100 leukocytes i n Blood by Automated countOrdered By: Brook Huddleston on 04-05-2025 Neutrophils/100 WBC (Bld) 69.0 % Normal . [facility] Comment on above: Performed By: #### C BC ####[address] No Panel InformationOrdered By: Orquidea Cortez on 04-05-2025 Pharmacy Creatinine Clearance (Chem N/A [facility] Nucleated erythrocytes [Pres ence] in Blood by Automated countOrdered By: Brook Huddleston on 04-05-2025 Nucleated RBC Auto Ql (Bld) 0.1 /100{WBC} 0-0.5 [facility] Platelet mean volume [Entiti c volume] in Blood by Automated countOrdered By: Brook Huddleston on 04-05-2025 Platelet mean volume (Bld) [Entitic vol] 7.3 fL Normal 6.6-10.1 [facility] Comment on above: Performed By: #### C BC ####[place] [id number] [facility] Platelets [#/volume] in Bloo d by Automated countOrdered By: Brook Flaquito on 04-05-2025 Platelets (Bld) [#/Vol] 210 10*3/uL Normal 150-450 [facility] Comment on above: Performed By: #### C BC ####[place] [id number] [facility] Potassium [Moles/volume] in Serum or PlasmaOrdered By: Orquidea Cortez on 04-05-2025 Potassium [Moles/Vol] 4.8 mmol/L Normal 3.5-5.1 [facility] Comment on above: Performed By: #### B MP ####[place] [id number] [facility] Prothrombin time (PT)Ordered By: Carito Martell on 04-05-2025 PT Coag (PPP) [Time] 11.2 s Normal 9.0-12.9 [facility] Comment on above: A hematocrit value g reater than 55% may lead to inaccurate results in coagulation testing. Patients having hematocrit values >55% require a special collection tube for coagulation studies. Please contact the laboratory at [phone] for redraw instructions. Result Comment: A he matocrit value greater than 55% may lead to inaccurate results in coagulation testing. Patients having hematocrit values >55% require a special collection tube for coagulation studies. Please contact the laboratory at [phone] for redraw instructions. Performed By: #### P T ####[place] [id number] [facility] Serum or plasma anion gap de terminationOrdered By: Orquidea Cortez on 04-05-2025 Anion gap [Moles/Vol] 10.1 mmol/L Normal 6.0-15.0 [facility] Comment on above: Performed By: #### B MP ####[facility] [place] [address] [facility] Sodium [Moles/volume] in Ser um or PlasmaOrdered By: Orquidea Cortez on 04-05-2025 Sodium [Moles/Vol] 137 mmol/L Normal 136-145 [facility] Comment on above: Performed By: #### B MP ####[place] [id number] [place] [id number] [facility] Urea nitrogen [Mass/volume] in Serum or PlasmaOrdered By: Orquidea Cortez on 04-05-2025 Urea nitrogen [Mass/Vol] 30 mg/dL High 7-25 [facility] Comment on above: Performed By: #### B MP ####[place] [id number] [place] [id number] [facility] Ambulatory Visit Summaryon 0 03-28-2025 Ambulatory Visit Summary Ambulatory Visit Summary PATSY CUNNINGHAM :1945 Visit Date:03/28/2025 Ambulatory Visit Instructions Your Care Team Attending Physician - Shadia COOPER, Pratima Primary Care Physician - HELEN HEATH MD This Is Your Medications List Non-Formulary Medication (D-mannose) acetaminophen (acetaminophen 500 mg Tab) aspirin (aspirin 81 mg Oral EC Tab) atorvastatin (atorvastatin 20 mg Tab) bifidobacterium-lactobacil huber (Probiotic + Colostrum) cholecalciferol (Vitamin D3 2000 intl units) cranberry (Cranberry) cyanocobalamin (Vitamin B-12 100 mcg oral tablet) darbepoetin raymond (Aranesp) docusate (Dulcolax Stool Softener) famotidine (famotidine 20 mg Tab) insulin glargine (Lantus insulin) insulin lispro (Humalog) multivitamin with iron (Gentle Iron oral capsule) nitrofurantoin (Macrobid 100 mg Cap) oxybutynin (oxybutynin 10 mg ER Tab) semaglutide (Rybelsus 3 mg oral tablet) Procedures Performed Placement of nephrostomy catheter, percutaneous, including diagnostic nephrostogram and/or ureterogram when performed, imaging guidance (eg, ultrasound and/or fluoroscopy) and all associated radiological supervision and interpretation (03/16/2025), Cystoscopy (03/07/2025), Change of suprapubic catheter (07/28/2024), Cystoscopic insertion of ureteric stent (06/04/2024), Transperineal needle biopsy of prostate (06/01/2024), Cystoscopic insertion of ureteric stent (02/03/2024), Cystoscopic replacement of ureteric stent (06/10/2023), ESWL of kidney (06/10/2023), Cystostomy and insertion of suprapubic tube (03/05/2023), Cystoscopic insertion of ureteric stent (12/10/2022), TURP - Transurethral resection of prostate (08/27/2022), Transurethral insertion of prostatic urethral lift implant (05/05/2022), Cystoscopic removal of ureteric stent (08/20/2012), Cystoscopic ureteroneocystostomy with insertion of ureteral stent (08/05/2012), ESWL of kidney (03/02/2009), Dental surgical procedure, heel spur, Stem cell transplant. What to do next Scheduled Follow-Up Appointments Thursday 1:45 PM EDT With: Diego RICKS, Orquidea Taylor Where: [facility] [address], [address] [place] [address]- Medications What How Much When Instructions Unchanged acetaminophen (acetaminophen 500 mg Tab) 1 Tablets By Mouth Every 4 hours as needed for for pain Unchanged aspirin (aspirin 81 mg Oral EC Tab) 1 Tablets By Mouth Every day Unchanged atorvastatin (atorvastatin 20 mg Tab) 1 Tablets By Mouth Every day Unchanged bifidobacterium-lactobacil huber (Probiotic + Colostrum) By Mouth Every day Unchanged cholecalciferol (Vitamin D3 2000 intl units) 50 Microgram By Mouth Every day Unchanged cranberry (Cranberry) By Mouth Every day Unchanged cyanocobalamin (Vitamin B-12 100 mcg oral tablet) 1 Tablets By Mouth Every day Unchanged darbepoetin raymond (Aranesp) Subcutaneous Every 4 weeks Unchanged docusate (Dulcolax Stool Softener) 100 Milligram By Mouth Every day Unchanged famotidine (famotidine 20 mg Tab) 1 Tablets By Mouth Once a day (at bedtime) Unchanged insulin glargine (Lantus insulin) 15 Units Subcutaneous Once a day (at bedtime) Unchanged insulin lispro (Humalog) 8 Units Subcutaneous Unchanged multivitamin with iron (Gentle Iron oral capsule) 1 Capsules By Mouth Every day Unchanged nitrofurantoin (Macrobid 100 mg Cap) 1 Capsules By Mouth 2 times a day take 1 cap morning of cath change and 12hrs after Unchanged Non-Formulary Medication (D-mannose) Unchanged oxybutynin (oxybutynin 10 mg ER Tab) 1 Tablets By Mouth Every day Unchanged semaglutide (Rybelsus 3 mg oral tablet) Allergies Myrbetriq (Multiple open mouth wounds) gabapentin (Unknown, Rash) lisinopril (Unknown, DRY COUGH, Cough) Problems Ongoing - Any problem that you are currently receiving treatment for. Asymptomatic microscopic hematuria Bilateral hydronephrosis BPH with urinary obstruction Diabetes Dysuria Family history of prostate cancer in father Glycosuria History of kidney stones HTN (hypertension) Hydroureter Hydroureteronephrosis Incomplete bladder emptying Kidney stones Microhematuria Multiple myeloma in remission Nocturia Noncompliant bladder OAB (overactive bladder) Prostate cancer Recurrent UTI Rheumatoid arthritis Ureteral stricture UTI (urinary tract infection) UTI symptoms Weak urine stream Historical - Any problem that you are no longer receiving treatment for. Elevated cholesterol Patient Survey You may receive a survey via text or e-mail asking about your office visit. Please share your experience with us by completing your survey. We appreciate your feedback and thank you for choosing us for your care. Patient Portal You may access all of your results and other medical record information on our secure patient portal. If you are not signed up for this yet, please contact [employer] at [phone] (more content not included)... Normal [facility] Ambulatory Visit Summaryon 0 03-27-2025 Ambulatory Visit Summary Ambulatory Visit Summary PATSY CUNNINGHAM :1945 Visit Date:03/27/2025 Ambulatory Visit Instructions Your Diagnosis Ureteral stricture Recurrent UTI Prostate cancer Noncompliant bladder BPH with urinary obstruction Incomplete bladder emptying Hydroureteronephrosis Kidney stones Family history of prostate cancer in father Your Care Team Attending Physician - Diego RICKS, Orquidea Taylor Primary Care Physician - HELEN HEATH MD This Is Your Medications List Contact prescribing physician if questions or concerns Non-Formulary Medication (D-mannose) acetaminophen (acetaminophen 500 mg Tab) aspirin (aspirin 81 mg Oral EC Tab) atorvastatin (atorvastatin 20 mg Tab) bifidobacterium-lactobacil huber (Probiotic + Colostrum) cholecalciferol (Vitamin D3 2000 intl units) cranberry (Cranberry) cyanocobalamin (Vitamin B-12 100 mcg oral tablet) darbepoetin raymond (Aranesp) docusate (Dulcolax Stool Softener) famotidine (famotidine 20 mg Tab) insulin glargine (Lantus insulin) insulin lispro (Humalog) multivitamin with iron (Gentle Iron oral capsule) nitrofurantoin (Macrobid 100 mg Cap) oxybutynin (oxybutynin 10 mg ER Tab) semaglutide (Rybelsus 3 mg oral tablet) Procedures Performed Placement of nephrostomy catheter, percutaneous, including diagnostic nephrostogram and/or ureterogram when performed, imaging guidance (eg, ultrasound and/or fluoroscopy) and all associated radiological supervision and interpretation (03/16/2025), Cystoscopy (03/07/2025), Change of suprapubic catheter (07/28/2024), Cystoscopic insertion of ureteric stent (06/04/2024), Transperineal needle biopsy of prostate (06/01/2024), Cystoscopic insertion of ureteric stent (02/03/2024), Cystoscopic replacement of ureteric stent (06/10/2023), ESWL of kidney (06/10/2023), Cystostomy and insertion of suprapubic tube (03/05/2023), Cystoscopic insertion of ureteric stent (12/10/2022), TURP - Transurethral resection of prostate (08/27/2022), Transurethral insertion of prostatic urethral lift implant (05/05/2022), Cystoscopic removal of ureteric stent (08/20/2012), Cystoscopic ureteroneocystostomy with insertion of ureteral stent (08/05/2012), ESWL of kidney (03/02/2009), Dental surgical procedure, heel spur, Stem cell transplant. Discharge Vitals Heart Rate (Peripheral) 80 Blood Pressure 160/85 Height 173 cm Height 68 in Weight 95.2 kg Weight 209.88 lb BMI 31.81 What to do next You Need to Schedule the Following Appointments Follow Up with Diego RICKS, Orquidea Taylor, [place], [place] When: Where: Medications What How Much When Instructions Unchanged acetaminophen (acetaminophen 500 mg Tab) 1 Tablets By Mouth Every 4 hours as needed for for pain Contact prescribing physician if questions or concerns Unchanged aspirin (aspirin 81 mg Oral EC Tab) 1 Tablets By Mouth Every day Contact prescribing physician if questions or concerns Unchanged atorvastatin (atorvastatin 20 mg Tab) 1 Tablets By Mouth Every day Contact prescribing physician if questions or concerns Unchanged bifidobacterium-lactobacil huber (Probiotic + Colostrum) By Mouth Every day Contact prescribing physician if questions or concerns Unchanged cholecalciferol (Vitamin D3 2000 intl units) 50 Microgram By Mouth Every day Contact prescribing physician if questions or concerns Unchanged cranberry (Cranberry) By Mouth Every day Contact prescribing physician if questions or concerns Unchanged cyanocobalamin (Vitamin B-12 100 mcg oral tablet) 1 Tablets By Mouth Every day Contact prescribing physician if questions or concerns Unchanged darbepoetin raymond (Aranesp) Subcutaneous Every 4 weeks Contact prescribing physician if questions or concerns Unchanged docusate (Dulcolax Stool Softener) 100 Milligram By Mouth Every day Contact prescribing physician if questions or concerns Unchanged famotidine (famotidine 20 mg Tab) 1 Tablets By Mouth Once a day (at bedtime) Contact prescribing physician if questions or concerns Unchanged insulin glargine (Lantus insulin) 15 Units Subcutaneous Once a day (at bedtime) Contact prescribing physician if questions or concerns Unchanged insulin lispro (Humalog) 8 Units Subcutaneous Contact prescribing physician if questions or concerns Unchanged multivitamin with iron (Gentle Iron oral capsule) 1 Capsules By Mouth Every day Contact prescribing physician if questions or concerns Unchanged nitrofurantoin (Macrobid 100 mg Cap) 1 Capsules By Mouth 2 times a day take 1 cap morning of cath change and 12hrs after Contact prescribing physician if questions or concerns Unchanged Non-Formulary Medication (D-mannose) Contact prescribing physician if questions or concerns Unchanged oxybutynin (oxybutynin 10 mg ER Tab) 1 Tablets By Mouth Every day Contact prescribing physician if questions or concerns Unchanged semaglutide (Rybelsus 3 mg oral tablet) Contact prescribing physician if questions or concerns Allergies Myrbetriq (Multiple o (more content not included)... Normal [facility] Urology Office/Clinic Noteon 03-27-2025 Urology Office/Clinic Note Urology Office/Clinic Note Chief Complaint follow up HPI Staff 80 year old male here for 2 week bilateral Neph tube placement done 03/23 Previous DX: ureteral stricture, recurrent UTI, prostate cancer, noncompliant bladder, BPH w/LUTS, incomplete bladder emptying, hydroureteronephrosis, kidney stones, family H/O prostate cancer Patients is concerned about neph tube site being red. Patient states that right side is draining more then left side. Is wanting to know how long he will have SP cath for. History of Present Illness Tests reviewed: reviewed [facility] and external records: [facility] notes. I have reviewed the previous health record information and history for this patient from Dr. Cortez I have reviewed and verified the staff [...] HPI. Physical Exam Vitals & Measurements HR: 80(Peripheral) BP: 160/85 HT: 173 cm HT: 68 in WT: 95.2 kg WT: 209.88 lb BMI: 31.81 General Appearance: alert, no distress, well nourished, well developed male. Left NT site c/d/i, mild erythema nickel size around tube and suture, well secured. Non tender, no purulence R NT site, erythematous tiny bumps/pustules on skin around site. Both with CYU SPT in place c/d/i, scant urine in bag. Assessment/Plan 80 yo M with complex urologic history s/p urolift, TURP, incidental finding of fav intermediate risk prostate cancer on active surveillance, found to have right distal ureteral stricture, non-compliant small bladder with BL VUR, acute on chronic renal failure. He was referred to Dr. Jessica Feliciano for further evaluation regarding recommendations of SP tube, stent, definitive care which is more invasive (cystectomy). Hx of multiple myeloma s/p tx, currently in remission. Sees Dr. Huddleston - no contraindications to proceed with any treatments or interventions. He is here for f/up to BL neph tube placement. THERESA N/A, pt inactive. Follows with nephro, Dr. Crain. Pt here with his today. 1. Ureteral stricture (N13.5: Crossing vessel and stricture of ureter without hydronephrosis) 10/14/22 - Crea 1.54. eGFR 44. (bond in place) Cr up to 2 without bond 12/08/22 - Cr 1.78. eGFR 37. BUN 30. K 5.0. (with bond) 12/17/22 - Cr 1.84. eGFR 37. BUN 22. K 5.3. (with stent) 04/23/23 - Cr 1.80. eGFR 38. BUN 24. K 4.6 (with stent and SPT) 01/21/24 - Cr 2.83. BUN 40. K 4.3. (with stent and SPT[place] [facility] and UTI 01/22/24 - Cr 2.58. BUN 31. K 4.1. (with stent and SPT) [place] [facility] U[place] 06/08/24 - BUN 36, Cre 2.30, GFR 28 (with bilateral stents and SPT) 07/20/24 - Cre 6.20 08/01/24 - Cre 2.43 BMP 11/11/24 - Cr 3.58, eGFR 16 CT AP wo con 10/02/22 - Mild-mod BL hydronephrosis and hydroureter without obstructing stone or mass. Non-obstructing calculi left kidney measuring 7 mm. Post Bond Renal US 10/14/22 neg for hydro. ANA 10/30/22 - Mild right pelvocaliectasis, neg for hydro. Pt refused bond/CIC at that time. Renal [place] 11[place]17/22 [facility] R-sided hydronephrosis and proximal hydroureter. Findings have progressed since prior study. Cr 1.87/ eGFR 36.6 Cath placed 11/21/2022 ANA 12/01/22 - Right hydronephrosis, grossly similar to the prior study despite bond in place. S/P cysto/RG/ureteroscopy/sten t placement/RT ureteral dilation and stent placement 12/10/22. ANA 12/17/22 - Interval resolution of the right sided hydronephrosis since the prior US study. Referred to [facility] urologist for right distal stricture, small capacity bladder with BL VUR 12/19/22. Dr. Jessica Feliciano evaluation -offered Botox, right stent placement and SP tube with plans for bladder augmentation and reimplant if bladder were to increase in size substantially. Patient declined invasive definitive treatment. He elected to proceed with chronic indwelling right stent with routine exchanges q3m and SP tube q1m S/p Cysto/R ureteral stent removal/R RGP/R stent placement 03/05/23. 7f x 26cm stent. S/p Cysto/R RGP/Ureteral stent exchange/L ESWL/SPT exchanged 06/10/23. Cont q4m ANA 01/20/24 [facility] Bilateral mild pelvocaliectasis L>R. S/p cysto, R RPG, stent exchange, SP tube exchange, TP prostate bx, TRUS 06/01/24. Urology consult 06/03/24 due to moderate L hydroureteronephrosis with R stent and SPT S/p cysto, L RPG, stent placement 06/04/24. Admitted @ [facility] 07/20/24 on Cre 6.2 for renal cytosis, Cre level continue to elevate, pt was then transferred to [place]. BL stent exchange, SP tube ex (more content not included)... Normal [facility] Comment on above: Result Comment: Elec tronically Signed By: Orquidea Cortez MD\.br\Date and Time Signed: 03/27/25 16:46 EDT\.br\Electronically Co-Signed By: Aleah Starr.br\Date and Time Co-Signed: 03/27/25 15:32 EDT Bessie 03-20-2025 VARGAS Telephone (Angio) -- PATSY CUNNINGHAM ([id number]) 1945 M Date Time Provider Department 03/20/25 JESUS CLEMENT During your visit today, we recorded the following information about you: Jesus Clement RN 03/20/2025 11:36 AM Signed SERVICE DATE: March 20, 2025 SERVICE TIME: 1130 CONSULTING SERVICE: Interventional Radiology IMPRESSION/RECOMMENDATIONS Patsy was contacted today for follow up s/p placement of Nephrostomy/Nephroureteral catheter(s). - Nephrostomy/Nephroureteral tube(s) to gravity drainage with reported good output. Color clear/mario. - Discussed signs and symptoms of infection. - Reviewed how to manage common tube related problems and emergency situations. - Emergency telephone contact information reviewed. - Reviewed dressing changes and tube flushing. - Tube care supplies adequate - Routine tube change to be scheduled: NEPH TUBE CARE INSTRUCTIONS: 1) Leave drain to gravity at all times. 2) Gently cleanse area around drain insertion site with warm soap and water, rinse, pat dry and apply clean dry dressing every other day and PRN wet or soiled. 3) If catheter stops draining urine and/or patient develops, fever greater than 100.4 F, flank pain, saturated dressings, check catheter for kinks, and remove bag at luer lock connection to gently flush drain with 5 ml NS. 4) If questions or concerns were to arise please call interventional radiology nurse line at M-F 7am - 3:30 am. After hours please call or and ask the combiner operator to page the interventional commercial lending vice president conference services coordinator. 5) To change or schedule an appointment with interventional radiology please call scheduling at . Instructions for My Care at Home or Healthcare Facility Additional Health Information I Need to Know After I Leave theHospital:Symptoms of an Infection to Watch for Include: Fever Swelling Increase in Redness Pus Call your doctor if you: See signs of infection, such as redness, drainage, foul odor, or swelling at the tube site. Have a temperature higher than 100.4?F or 38?C. Develop shaking chills. Do not have relief from pain or the flow is not restored after flushing. See bright red blood in your urine (some pink-tinged urine is to be expected). Notice a foul odor in your urine. Watch for the following: Wet dressing Pain in your back or sides Little or no urine drainage If you have any of the above signs or symptoms, follow these steps: If your tube is already attached to a drainage bag, remove your dressing and check to see if the tube is kinked. If the tube is kinked, straighten the tube until fluid begins to flow. If fluid does not drain after removing the kink in the tube, you may need to gently flush the tube. If your tube is capped attach a drainage bag. Be sure the drainage bag is below the level of the tube site. Wound Care/Surgical Site Care: Keep the dressing that is over the tube site clean and dry. You may have a stitch holding your tube in place. If the stitch breaks, call your doctor. Your tube may have a lock that holds it in place. Do not open the lock. Always keep the bag below the tube site to allow proper drainage by gravity. Your dressing should be changed every other day or sooner if it becomes wet, soiled, falls off, or unless instructed otherwise. It is easier if someone helps you change the dressing. Change the drainage bag monthly.. It is important that the tube remain in the proper position and does not become kinked. You may shower. DO NOT swim or soak in water. Please refer to the YouTube video for nephrostomy tube care instructions and demonstrations. [email or web address] pY Activity and Exercise: (When I can drive, return to work) Rest when you get home after the procedure. We recommend a responsible adult stay with you overnight after the procedure. Avoid lying or sleeping on your back to prevent kinking of the tube. You may resume your normal activities 24 hours after the procedure. Follow-Up Appointment Reminders: (A list of any scheduled appointments is at the end of this document) For routine concerns please call Interventional Radiology nurse triage line [phone], Thursday - Thursday 9 a.m. - 4 p.m. After hours please call and ask for Interventional Radiology Fellow conference services coordinator, pager [phone]. In the event of acute symptoms report directly to local emergency department and notify the Department of Intervention Radiology after the fact. IR will contact you and schedule for follow up appointment will be set up for routine exchange in 4 weeks All questions and concerns were addressed. I spent 20 minutes on the above conversation with the patient. Allergies As of Date: 03/20/2025 Noted Allergy Reaction MIRABEGRON 06/27/2022 6 - Diarrhea 8 - GI Upset G (more content not included)... Normal [facility] 03-16-2025 CNPN Telephone (IRRFV) -- PATSY CUNNINGHAM ([id number]) 1945 M Date Time Provider Department 03/16/25 [facility] PROVIDER IRRFV During your visit today, we recorded the following information about you: Allergies As of Date: 03/16/2025 Noted Allergy Reaction MIRABEGRON 06/27/2022 6 - Diarrhea 8 - GI Upset GABAPENTIN 08/20/2021 2 - Rash Date Reviewed: 03/16/2025 Reviewed by: Krista Tamayo, RN - Fully Assessed Primary Visit Diagnosis:Ureteral 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.5] Order(s):IR NEPH TUBE CHANGE [[id number]] Order #: [id number] STANDING Prescriptions as of 03/16/2025 - aspirin 81 mg chewable tablet mg [...] INSULIN 100 unit/mL (3 mL) - insulin lispro (HUMALOG KWIKPEN) 100 unit/mL pen Inject 8 Units subcutaneously three times daily before meals. Plus sliding scale. - docusate sodium (STOOL SOFTENER) 100 mg capsule Take 100 mg by mouth twice daily as needed for constipation. - phosphorus (PHOSPHOROUS) 250 mg tablet Take 1 tablet by mouth three times daily. 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] 07/03/2022 Rheumatoid arthritis (HCC) [M06.9] 12/15/2022 Prostate cancer (HCC) [C61] 02/11/2023 Benign prostatic hyperplasia with urinary obstr*12/10/2021 Stage 3 chronic kidney disease (HCC) [N18.30] 05/08/2022 Diabetes (HCC) [E11.9] 02/11/2023 Hypercholesterolemia [E78.00] 09/04/2022 HTN (hypertension) [I10] 02/11/2023 Iron deficiency anemia [D50.9] 02/11/2023 Encounter Status:Closed by BIBIANA MOREIRA [facility] PATSY CUNNINGHAM ([id number]) 1945 M Date Time Provider Department 03/16/25 ZOHRA BALDWIN AVXRPR During your visit today, we recorded the following information about you: Zohra Baldwin RN 03/16/2025 11:28 AM Signed Tube Exchange Appointment Request Form Person filling out this form: Zohra Baldwin RN Date: March 16, 2025 Time: 11:27 AM Patient Name: Patsy Cunningham Patient What type of tube is this? Nephrostomy or nephroureteral (tube in the back) Does this tube need exchanged? Yes, How many weeks? 4 weeks Per physician direction, does this need to be physician specific? No Does this patient require DAVIN? No Per physician, can this exchange be done in the region? [place] / [place] ( [place] ) If the patient has an already existing exchange appointment can that one be cancelled? Yes Any other pertinent information needed for schedulers?bilateral Bibiana Moreira 03/17/2025 7:56 AM Signed Due 04/13-- calling PT Allergies As of Date: 03/16/2025 Noted Allergy Reaction MIRABEGRON 06/27/2022 6 - Diarrhea 8 - GI Upset GABAPENTIN 08/20/2021 2 - Rash Date Reviewed: 03/16/2025 Reviewed by: Krista Tamayo, RN - Fully Assessed Reason for Visit: IR Outpatient Tube Appointment Request [[id number]] Prescriptions as of 03/17/2025 - aspirin 81 mg chewable tablet mg [...] INSULIN 100 unit/mL (3 mL) - insulin lispro (HUMALOG KWIKPEN) 100 unit/mL pen Inject 8 Units subcutaneously three times daily before meals. Plus sliding scale. - docusate sodium (STOOL SOFTENER) 100 mg capsule Take 100 mg by mouth twice daily as needed for constipation. - phosphorus (PHOSPHOROUS) 250 mg tablet Take 1 tablet by mouth three times daily. 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] 07/03/2022 Rheumatoid arthritis (HCC) [M06.9] 12/15/2022 Prostate cancer (HCC) [C61] 02/11/2023 Benign prostatic hyperplasia with urinary obstr*12/10/2021 Stage 3 chronic kidney disease (HCC) [N18.30] 05/08/2022 Diabetes (HCC) [E11.9] 02/11/2023 Hypercholesterolemia [E78.00] 09/04/2022 HTN (hypertension) [I10] 02/11/2023 Iron deficiency anemia [D50.9] 02/11/2023 Encounter Status:Closed by ZOHRA BALDWIN on 03/16/25 [facility] HISTORY PHYSICALon HISTORY PHYSICAL HNO ID: [id number] Author: DAX FORBES MD Service: Interventional Radiology Author Type: Physician Type: H&P Filed: 03/16/2025 09:30 Note Text: RADIOLOGY PROCEDURAL SEDATION HISTORY AND PHYSICAL EXAM SERVICE DATE: 03/16/2025 SERVICE TIME: 900 am Subjective HPI: 80 year old male with PMHx of HTN, RA, IDDM, MM, Prostate cancer and severe bladder dysfunction with indwelling suprapubic tube and bilateral double J stents who presents for bilateral PCN placement due to recurrent UTIs and renal dysfunction despite the above interventions warranting urinary diversion. Patient reports UTI symptoms that began 2 days ago and he was prescribed Fluconazole and Cipro for possible fungal and bacterial infection. His symptoms have since resolved. Otherwise, he is asymptomatic. Previously with general anesthesia and MAC he had hypersomnolence afterwards and would like to proceed with moderate to avoid that. He has not had issues with moderate in the past. Able to lie prone No anti-coag ASA was held No home O2 or RUYD METS >4 PROCEDURE SCHEDULED: Procedure(s): PERC PLACEMENT NEPHROSTOMY CATH,INCLUDING DIAGNOSTIC NEPHROSTOGRAM/URETEROGRAM WHEN PERFORMED,IMAGING GUIDANCE AND ALL ASSOCIATED RAD SHELLY (Pending) RADIOLOGY ORDER PLACED: PAST ANESTHESIA HISTORY: Somnolence from [place] PAST MEDICAL HISTORY Diagnosis Date Anemia BPH (benign prostatic hyperplasia) Diabetes (HCC) Hypertension Kidney stones Multiple myeloma (HCC) OAB (overactive bladder) Prostate CA (HCC) Rheumatoid arthritis (HCC) PAST SURGICAL HISTORY Procedure Laterality Date BONE MARROW TRANSPLANT, ALLOGENEIC CYSTOSCOPY 11/2022 ESWL 2008 TRANSURETHRAL ELEC-SURG PROSTATECTOM 08/2022 UROLIFT PROSTATE PROCEDURE 04/2022 UVULECTOMY EXCISION OF UVULA Prior to Admission medications as of 03/05/23 0646 Medication Sig Last Dose Taking aspirin 81 mg chewable tablet mg tab(s), Chewed, Daily, Refills(s) 0 03/15/2025 Yes atorvastatin (LIPITOR) 20 mg tablet Take by mouth. 03/15/2025 Yes famotidine (PEPCID) 20 mg tablet Take 20 mg by mouth. 03/15/2025 Yes metFORMIN ER (GLUCOPHAGE XR) 500 mg 24 hr tablet 03/15/2025 Yes oxybutynin ER (DITROPAN XL) 10 mg 24 hr tablet 03/15/2025 Yes MEN'S MULTI-VITAMIN ORAL Multi Vitamin Mens Active 03/15/2025 Yes Cholecalciferol, Vitamin D3, (D3-2000) 50 mcg (2,000 unit) cap Take by mouth. 03/15/2025 Yes Lactobacillus acidophilus (PROBIOTIC) 10 billion cell cap probiotic as directed Active 03/15/2025 Yes lisinopril (ZESTRIL) 10 mg tablet Take by mouth q 24 HR. 03/15/2025 Yes LANTUS SOLOSTAR U-100 INSULIN 100 unit/mL (3 mL) 03/15/2025 Yes insulin lispro (HUMALOG KWIKPEN) 100 unit/mL pen Inject 8 Units subcutaneously three times daily before meals. Plus sliding scale. 03/15/2025 Yes docusate sodium (STOOL SOFTENER) 100 mg capsule Take 100 mg by mouth twice daily as needed for constipation. 03/15/2025 Yes phosphorus (PHOSPHOROUS) 250 mg tablet Take 1 tablet by mouth three times daily. ALLERGIES Allergen Reactions Mirabegron Diarrhea, GI Upset Gabapentin Rash Objective PHYSICAL EXAM: GENERAL: Alert, no distress, cooperative SKIN: Skin color, texture, turgor normal. No rashes or lesions. ABDOMEN: Soft, nontender and Non-distended, No CVA TTP, SPT is clean with no discharge and urine output is light yellow with no pus or hematuria AIRWAY: Mouth opening greater than 3 fingerbreadths: Yes Neck Full Range of Motion: Yes LUNGS: NL effort on RA CARDIAC: RRR Assessment/Plan 80 year old male with PMHx of HTN, RA, IDDM, MM, Prostate cancer and severe bladder dysfunction with indwelling suprapubic tube and bilateral double J stents who presents for bilateral PCN placement due to recurrent UTIs and renal dysfunction despite the above interventions warranting urinary diversion. Patient reports UTI symptoms that began 2 days ago and he was prescribed Fluconazole and Cipro for possible fungal and bacterial infection. His symptoms have since resolved. Otherwise, he is asymptomatic. Previously with general anesthesia and MAC he had hypersomnolence afterwards and would like to proceed with moderate to avoid that. He has not had issues with moderate in the past. Able to lie prone No anti-coag ASA was held No home O2 or RUDY METS >4 ASA Class: ASA Class: Patient with mild systemic disease Provisional Diagnosis/Treatment Plan: Bilateral PCN placement for urinary diversion Ppx cipro Sedation Goal: Moderate SIGNATURE: Dax Forbes MD PATIENT NAME: Patsy Cunningham DATE: March 16, 2025 TIME: 9:23 AM [facility] IR PLACE NEPH TUBE BILATon 0 03-16-[address] NEPH TUBE BILAT * * *Final Report* * * DATE OF EXAM: Mar 16 2025 11:34AM A 7352 - IR PLACE NEPH TUBE BILAT / PROCEDURE REASON: hydronephrosis * * * * Physician Interpretation * * * * Percutaneous nephrostomy placement (BILATERAL) Procedural Personnel Attending: Dax Forbes MD Assistance: None Pre-procedure diagnosis: Bladder dysfunction Post-procedure diagnosis: Same Indication: Urinary diversion PROCEDURES 1. Focused Ultrasound of the LEFT [place] kidney 2. Ultrasound and Fluoroscopic-guided placement of a LEFT PCN 3. LEFT antegrade nephrostogram 4. Ultrasound evaluation of the RIGHT [place] kidney 5. Ultrasound and fluoroscopic-guided placement of a RIGHT PCN 6. RIGHT antegrade nephrostogram Consent: Consent obtained with the patient as documented. Lindsay-procedure discussion: The appropriate elements of the pre-procedure discussion, safety check list and sign-out were performed. Time out was completed before start of procedure. Contrast agent: OMNIPAQUE 300 Contrast volume (mL): 40 Image Guidance: Fluoroscopic guidance. DOSES Plane A, Air Kerma: 85.0 mGy Dose Area Product (DAP): 7084.2 mGy*cm2 Fluoro Time: 17:24 min:sec Radiation dose exceed 3.5 Gy: No If radiation dose exceeded 3.5 Gy, was counseling and instructional brochure provided: N/A Sedation: Level of anesthesia/sedation: Moderate sedation (conscious sedation) Anesthesia/sedation administered by: Independent trained observer under attending supervision with continuous monitoring of the patient?s level of consciousness and physiologic status Total intra-service sedation time (minutes): 105 mins Local anesthesia: 2 % lidocaine MEDICATIONS Antibiotics: Ciprofloxacin Antibiotic infusion start time: 903 Prophylactic antibiotic administered: Within 1 hour of procedure start time or 2 hours for vancomycin or fluoroquinolones Start of procedure: 944 End of procedure: 1125 TECHNIQUE: Patient was placed in prone position. Procedure area(s) (FLANK(s)) were prepped and draped in the usual sterile fashion. A epidemiology internship image of the area(s) was obtained and showed no new abnormality compared to prior. LEFT [place] NEPHROSTOMY Focused ultrasound evaluation of the LEFT [place] kidney was performed as described below. An adequate subcostal approach was delineated to a lower pole calyx with no intervening lesions or adjacent viscera. Under continuous US guidance, a 25 gauge needle was used to inject Lidocaine for local anesthesia from the skin to the perinephric tissue overlying the target calyx. A small skin incision was made. Using a single needle access technique under direct ultrasound guidance, a 21G needle was guided into the target renal calyx through the anesthestized tract. Drainage from the needle yielded clear urine. A microwire was inserted into the renal collecting system. The AccuStick set was advanced over the wire followed by contrast injection confirming positioning within the urinary collecting system. Under fluoroscopic guidance, the transitional sheath was used to upsize to an 035 wire over which the tract was dilated and a 10 [place] PCN was placed. After decompression of the collecting system contrast was injected and an antegrade nephrostogram was performed confirming positioning of the catheter within the urinary collecting system with additional findings as below. The pigtail was formed and locked and a gravity drainage bag attached. The catheter was sutured to the skin with 2-O nonabsorbable suture. RIGHT [place] NEPHROSTOMY Focused ultrasound evaluation of the RIGHT [place] kidney was performed as described below. An adequate subcostal approach was delineated to a lower pole calyx with no intervening lesions or adjacent viscera. Under continuous US guidance, a 25 gauge needle was used to inject Lidocaine for local anesthesia from the skin to the perinephric tissue. A small skin incision was made. Using a double needle access technique under direct ultrasound guidance, a 21G needle was guided into the renal pelvis and used to distend the decompressed collecting system. Next, under US and fluoroscopic guidance an inferior renal calyx was targeted. Drainage from the needle yielded clear urine. A microwire was inserted into the renal collecting system. The AccuStick set was advanced over the wire followed by contrast injection confirming positioning within the urinary collecting system. Under fluoroscopic guidance, the transitional sheath was used to upsize to an 035 wire over which the tract was dilated and a 10 Lat[place] PCN was placed. After decompression of the collecting system contrast was injected and an antegrade nephrostogram was performed confirming positioning of the catheter within the urinary collecting system with additional findings as below. The pigtail was formed and locked and a gravity drainage bag attached. The catheter was sutured to the skin w (more content not included)... Normal [facility] NURSING PROGon 03-16-2025 NURSING PROG HNO ID: [id number] Author: AFRICA VELASQUEZ RN Service: Nursing Author Type: Registered Nurse Type: Nursing Progress Note Filed: 03/22/2025 16:19 Note Text: Completed post procedure phone call. Patsy is feeling well and has returned to his baseline diet and activity. He denies questions or concerns related to his appointment and had no surgical site concerns. Normal [facility] NURSING PROG HNO ID: [id number] Author: KRISTA TAMAYO, EVY Service: Nursing Author Type: Registered Nurse Type: Nursing Progress Note Filed: 03/16/2025 12:27 Note Text: [facility] INTERVENTIONAL RADIOLOGY CONSULT NOTE [facility] March 16, 2025 Patsy Castillo Gene Tube Education Note Tube teaching done with patient (Patsy) and family () at bedside. Home going pamphlet reviewed with patient. Improper tube functioning reviewed including: no tube output, leaking of bile around tube, physical symptoms (RUQ pain, fever,chills, nausea,vomiting, jaundice). All questions answered. Supplies issued. Discussed with bedside nursing staff to have patient and family watch instructional videos and demonstrate flushing and with next dressing change. Patient scheduled for follow up in 4 weeks. Nephrostomy Additional printouts of at-home instructions for care of nephrostomy tube can be located at: At-Home Instructions After Placement of a Nephrostomy Tube A patient education video for care of a nephrostomy tube is available on [employer]. Please use this link: [email or web address] pY For questions or concerned please contact [place] Interventional Radiology at [phone], option 1. Mon-Fri 8 am to 4:30 pm . For concerns between 4:30PM-7:00AM contact the on-call IR fellow / resident at pager [phone] SIGNATURE: Krista Tamayo RN PATIENT NAME: Patsy Cunningham DATE: March 16, 2025 TIME: 12:17 PM PAGER: [facility] NURSING PROG HNO ID: [id number] Author: ARYA CUNNINGHAM RN Service: Nursing Author Type: Registered Nurse Type: Nursing Progress Note Filed: 03/16/2025 08:53 Note Text: PATIENT EDUCATION TOPIC: PROCEDURE / SURGERY: Procedure/Surgery: Nephrostomy Tube Placement PATIENT NAME: Patsy Cunningham PATIENT LOCATION: AV Rad Proc/AV Rad Proc READINESS TO LEARN COGNITIVE ABILITY: Alert and oriented MOTIVATION TO LEARN: Interested FAMILY SUPPORT: High - Very involved in pt care INSTRUCTION PROVIDED TO: Patient and Spouse PATIENT LEARNS BEST BY: Individual Instruction Written Instruction - Hand-outs Verbal Instruction FACTORS AFFECTING LEARNING: None PHYSICAL LIMITATIONS AFFECTING LEARNING: None LEARNING RESPONSE DIAGNOSIS: ADULT: hydronephrosis PATIENT/FAMILY RESPONSE: Verbalizes understanding of: POST-PROCEDURE INSTRUCTIONS-Correct actions to take to reduce post procedure complications PRE-PROCEDURE INSTRUCTIONS-Correct action to take to follow pre-procedure instructions METHOD OF INSTRUCTION: Individual instruction Written instruction/Handouts Verbal instruction FOLLOW-UP PLAN: Patient instructed to call with any further issues Follow-up with Primary Care INSTRUCTIONAL AIDS USED: printed post nephrostomy tube change and after sedation instructions SUPPLEMENTAL MATERIAL PROVIDED TO PATIENT: printed instructions and nephrostomy tube book given to patient REFERRAL (RECOMMENDATION): None Electronically Signed By: Arya Cunningham [facility] C Urineon 03-10-2025 Bacteria identified Cx Nom (U) Microbiology PROCEDURE: Urine Culture [R1] SOURCE: U Cysto BODY SITE: COLLECTED DATE/TIME: 03/07/2025 12:30 EDT RECEIVED DATE/TIME: 03/07/2025 13:24 EDT START DATE/TIME: 03/07/2025 13:25 EDT FREE TEXT SOURCE: orestes Cortez MD, Orquidea Cortez MD, Orquidea Taylor FINAL REPORTS Final Report [] Verified Date/Time: 03/10/2025 14:57 EDT 500 cfu/ml Staphylococcus aureus isolated. 5,000 cfu/ml Jessica albicans Presumptive isolated. SUSCEPTIBILITY RESULTS _ LEGEND: S=Susceptible, N/R=Not Reported, Blank=Data not available, or drug not advisable or tested, I=Intermediate, ESBL=Extended spectrum beta-lactamase, R=Resistant, TFG=Thymidine-dependent strain, RADHA=Beta-lactamase positive, DEEPA=mcg/m;(mg/L), S*=Predicted susceptible interp, R*=Predicted resistant interp SA Antibiotic DEEPA Dilutn DEEPA Interp Amoxicillin/ <=4/2 S Clavulanate Ampicillin >8 RADHA Ampicillin/ <=8/4 S Sulbactam Cefazolin <=8 S Ceftaroline <=0.5 S Daptomycin <=1 S Linezolid <=2 S Nitrofurantoin <=32 S Oxacillin 1 S Penicillin >8 RADHA Rifampin <=1 S Tetracycline <=4 S Trimethoprim/ >2/38 R Sulfa Vancomycin 1 S Performing Locations R1: This test was performed at: [facility], [address] [place] [address], [id number] , [place], [facility] Comment on above: Performed By: #### 2 [id number] #### [facility] [address] [place] [id number] XR Urography Retrograde Bila teralon 03-09-2025 XR Urography Retrograde Bilateral Exam Date/Time: 03/07/2025 12:24 EDT Reason for Exam: cysto bilateral stent exchange Report XR Urography Retrograde Bilateral : 03/07/2025 11:52 AM CLINICAL HISTORY: cysto bilateral stent exchange. COMPARISON: None available. Intraoperative fluoroscopy was provided for Dr. Orquidea Cortez 's procedure. No diagnostic images were obtained. Please see Dr. Orquidea Cortez 's surgical notes for complete details. Technical Comments: Ka,r in mGy = 3.60 DAP = 271.11 Ordering Provider: Orquidea Cortez FINAL REPORT Dictated: 03/09/2025 9:51 am Topher Stanley DO Signed (Electronic Signature): 03/09/2025 9:51 am Signed by: Topher Stanley DO Transcribed by: NEVAEH Technologist: GANESH [facility] PAT[facility] CUN[facility]HAM ([id number]) 1945 M Date Time Provider Department 03/08/25 MARISOL VENTURAXRJEROMY During your visit today, we recorded the following information about you: Marisol Ventura RN 03/08/2025 10:39 AM Addendum Spoke with Patsy Herbert's that appointment is for ThursdayMarch 16 RADIOLOGY PROCEDURE INSTRUCTIONS: You are scheduled for a Nephrostomy Tube Placement, on February You are to arrive at 07:30 am and check in at [facility]: Radiology Outpatient Desk [id number]. You can expect to be here for 6-8 hours. Address: [address] [address] Diet: Do not eat any solid food after midnight the night before your procedure. You may drink clear liquids until 06:30 am the day of your procedure, which means black coffee, apple juice, tea, jello, Gatorade, or water only. Medications: Please take prescribed medications such as heart, blood pressure, anti-seizure, and chronic pain medications with a sip of clear liquids. Bring your current medication list. Radiology recommends these medication restrictions: If you are taking any medication that is a blood thinner, hypoglycemic, weight loss agent, etc., you may need to hold this medication prior to procedure. Not stopping the medication correctly may result in your procedure being canceled. If you are diabetic please contact your physician regarding diet restrictions and managing insulin/diabetes medications pre-procedure: Stop oral hypoglycemic the day of this procedure Hold short acting insulin the day of procedure Long acting insulin, take ? dose If on mixed insulin - if BG> than 200 take half the dose If BG less < 200- don't take Special concerns: It is okay to shower/bathe the morning of your procedure. There may be bathing restrictions post procedure. Do you have any attached medical devices? If yes, the device may need to be removed before entering the procedure room. Allergies: Allergies reviewed: Yes Do you have a contrast dye allergy? No. Labs: Lab work needs to be drawn? No. [place]/Transportation: How will you be arriving for your procedure? Private car. If you will be arriving via ambulance or public transportation, please call to discuss. You will need a responsible adult to accompany you to and from the procedure. We will verify your ride home upon arrival. Minors/visitors requiring supervision cannot accompany you unless there is another responsible adult with them. Child and/or dependent care arrangements need to be made. If you need to cancel or reschedule your procedure, please call our user support analyst supervisor: Aleisha Johansen and [place] [phone]; 8am - 4pm M-F If you have any additional questions please call: [facility] nurses desk at [phone] 8am - 4pm M-F. Option 1 Allergies As of Date: 03/08/2025 Noted Allergy Reaction MIRABEGRON 06/27/2022 6 - Diarrhea 8 - GI Upset GABAPENTIN 08/20/2021 2 - Rash Date Reviewed: 04/15/2023 Reviewed by: Manuel Oropeza MA - Fully Assessed Reason for Visit: Radiology Pre Procedure Instructions [1506] Prescriptions as of 03/08/2025 - aspirin 81 mg chewable tablet mg [...] INSULIN 100 unit/mL (3 mL) - insulin lispro (HUMALOG KWIKPEN) 100 unit/mL pen Inject 8 Units subcutaneously three times daily before meals. Plus sliding scale. - docusate sodium (STOOL SOFTENER) 100 mg capsule Take 100 mg by mouth twice daily as needed for constipation. - phosphorus (PHOSPHOROUS) 250 mg tablet Take 1 tablet by mouth three times daily. 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] 07/03/2022 Rheumatoid arthritis (HCC) [M06.9] 12/15/2022 Prostate cancer (HCC) [C61] 02/11/2023 Benign prostatic hyperplasia with urinary obstr*12/10/2021 Stage 3 chronic kidney disease (HCC) [N18.30] 05/08/2022 Diabetes (HCC) [E11.9] 02/11/2023 Hypercholesterolemia [E78.00] 09/04/2022 HTN (hypertension) [I10] 02/11/2023 Iron deficiency anemia [D50.9] 02/11/2023 Encounter Status:Closed by MARISOL VENTURA on 03/08/25 [facility] Main OR Intraoperative Recor don 03-08-2025 Main OR Intraoperative Record Main OR Intraoperative Record IntraOp Document Type FT Summary Primary Physician: Orquidea Cortez MD Finalized Date/Time: 03/08/25 09:30:16 Pt. Name: PATSY CUNNINGHAM/Sex: 1945 Male Med Rec #: [id number] Physician: Orquidea Cortez MD Financial #: [id number] Pt. Type: A Room/Bed: [place] [address] Admit/Disch: 03/07/25 07:51:51 - 03/07/25 14:25:00 Institution: Case Times FT Entry 1 Patient Times In Room 03/07/25 11:47:00 Out Room 03/07/25 12:25:00 Procedure Times Start 03/07/25 12:00:00 Stop 03/07/25 12:20:00 Anesthesia Times Start 03/07/25 11:47:00 Stop 03/07/25 12:25:00 Last Modified By: Klesey Daniels Ii 03/07/25 14:00:58 Case Attendance FT Entry 1 Entry 2 Entry 3 Case Attendee Emilee KNIGHT, Topher Cortez MD, Orquidea Hernandez CST, Denise Lebron Role Performed Anesthesiologist Surgeon - Primary Scrub - Relief Gage Designer Time In 03/07/25 11:47:00 03/07/25 11:47:00 03/07/25 11:47:00 Time Out 03/07/25 12:25:00 03/07/25 12:25:00 03/07/25 12:00:00 Procedure CYSTOSCOPY RETROGRADE CYSTOSCOPY RETROGRADE CYSTOSCOPY RETROGRADE STENT STENT STENT INSERTION(Bilateral) INSERTION(Bilateral) INSERTION(Bilateral) Comments DR. MAX CHANGE MANAGEMENT ADMINISTRATOR LUNCH RELIEF Last Modified By: Kelsey Daniels Ii F Letrondo, Alfons Ii F Letrondo, Alfons Ii F 03/07/25 14:01:34 03/07/25 14:01:34 03/07/25 14:01:34 Entry 4 Entry 5 Entry 6 Case Attendee Becca Cunningham Alfons Ii Freida Brandt RT(R), Heavenly R Role Performed Scrub - Primary Mechanical Lead - Primary Airline Manager Time In 03/07/25 12:00:00 03/07/25 11:47:00 03/07/25 11:47:00 Time Out 03/07/25 12:25:00 03/07/25 12:25:00 03/07/25 12:25:00 Procedure CYSTOSCOPY RETROGRADE CYSTOSCOPY RETROGRADE CYSTOSCOPY RETROGRADE STENT STENT STENT INSERTION(Bilateral) INSERTION(Bilateral) INSERTION(Bilateral) Comments Last Modified By: Frances Alfons Ii F Letrondo, Alfons Ii F Letrondo, Alfons Ii F 03/07/25 14:01:34 03/07/25 14:01:34 03/07/25 14:01:34 Perioperative Protocols FT Pre-Care Text: Implements protective measures prior to operative or invasive procedure, confirms identity before the operative or invasive procedure, verifies operative procedure, surgical site, and laterality Entry 1 Procedure(s) CYSTOSCOPY RETROGRADE Patient Identity Birthday, ID Band STENT Verified (select at Check, Patient INSERTION(Bilateral) least 2): Participation Consents / H and P Anesthesia Consent, Operative Site N/A Verified H&P, Surgery/Procedure Marking Verified Consent Surgical Site Yes Laterality Verified Yes Verified Procedure Verified Yes Correct Patient Yes Position Verified Availability Equipment, Implant, Prep Dry No Verified (If Medication, X-ray Applicable) PreOp Antibiotic Yes Time Out Topher Pollock Given Participants Diego Carter MD, David Bell CST, Denise Lebron, Becca Cunningham, Kelsey Daniels Ii, Barnes RT(R), Heavenly R Time Out Complete 03/07/25 11:59:00 Outcomes Met? Yes Last Modified By: Kelsey Daniels Ii 03/07/25 12:17:19 Post-Care Text: The patient is free from signs and symptoms of injury caused by extraneous objects Allergy Information FT Pre-Care Text: Verifies allergies Entry 1 Allergies Reviewed? Yes Allergies Reviewed Self/Patient With Outcomes Met? Yes Last Modified By: Kelsey Daniels Ii 03/07/25 12:17:26 Post-Care Text: The patient received appropriate medication(s) safely administered during the perioperative period Surgical Procedures FT Entry 1 Procedure Description Procedure CYSTOSCOPY RETROGRADE Modifiers Bilateral STENT INSERTION Surgeon Description CYSTO BILATERAL STENT EXCHANGE AND SUPRAPUBIC TUBE EXCHANGE Primary Procedure Yes Primary Surgeon Orquidea Cortez MD 03/07/25 12:00:00 Stop 03/07/25 12:20:00 Anesthesia Type General Surgical Service Urology Wound Class 2 - Clean-Contaminated Last Modified By: Kelsey Daniels Ii 03/07/25 14:01:45 General Case Data FT Pre-Care Text: Classifies surgical wound, implements aseptic technique, initiates traffic control Entry 1 Case Information OR OR 1 FT Case Level Level 3 Wound Class 2 - Clean-Contaminated Specialty Urology ASA Class 3 Preop Diagnosis URETHRAL STRICTURE, NON Postop Same As Preop Yes COMPLIANT BLADDER, HYDROURETERONEPHROSIS Postop Diagnosis URETHRAL STRICTURE, NON Outcomes Met? Yes COMPLIANT BLADDER, HYDROURETERONEPHROSIS Last Modified By: Cele Dewitt CST 03/08/25 09:30:14 Post-Care Text: The patient is free from signs and symptoms of infection Skin Assessment (Pre Procedure) FT Pre-Care Text: Implements protective measures to prevent skin/ tissue injury due to thermal or mechanical sources Evaluates for signs and symptoms of physical injury to skin and tissue Entry 1 Skin Integrity Intact, [place], Warm, & Skin Abnormality No Dry Outcomes Met? Yes Last Modified By: Kelsey Daniels Ii 03/07/25 12:17:44 Post-Care Text: The (more content not included)... Normal [facility] Capillary Glucose POCon 02-15 Glucose [Mass/Vol] 200 mg/dL High 55-99 [facility] Comment on above: Result Comment: Mandi olmos Meter Performed By: #### [id number] #### [facility] [address] [place] [address] Discharge Instructionson Discharge Instructions Discharge Instruc tions PATSY CUNNINGHAM :1945 Visit Date:03/07/2025 Inpatient Discharge Instructions Your Care Team Admitting Physician - Orquidea Cortez MD Referring Physician - Orquidea Cortez MD Reason for Your Visit URETHRAL STRICTURE, NON COMPLIANT BLADDER, HYDROURETERONEPHROSIS Your Diagnosis Bilateral hydronephrosis, Hydroureteronephrosis Chronic indwelling Bond catheter Noncompliant bladder Ureteral stricture Procedure History Change of suprapubic catheter (07/28/2024), Cystoscopic insertion of ureteric stent (06/04/2024), Transperineal needle biopsy of prostate (06/01/2024), Cystoscopic insertion of ureteric stent (02/03/2024), Cystoscopic replacement of ureteric stent (06/10/2023), ESWL of kidney (06/10/2023), Cystostomy and insertion of suprapubic tube (03/05/2023), Cystoscopic insertion of ureteric stent (12/10/2022), TURP - Transurethral resection of prostate (08/27/2022), Transurethral insertion of prostatic urethral lift implant (05/05/2022), Cystoscopic removal of ureteric stent (08/20/2012), Cystoscopic ureteroneocystostomy with insertion of ureteral stent (08/05/2012), ESWL of kidney (03/02/2009), Dental surgical procedure, heel spur, Stem cell transplant. Discharge Vitals Temperature (Oral) 36.3 ???C Heart Rate (Monitored) 67 Respiratory Rate 18 Blood Pressure 173/92 What to do next Instructions From Your Doctor Event Name Event Result Discharge Activity Ambulate as tolerated, Resume normal activities in 24 hours, Arrange for a responsible adult supervision for 24 hours, Expect mild pain, Expect minimal amount of drainage and/or bleeding, Activity as tolerated Discharge Restrictions No driving for 24 hrs Discharge Diet(s) Regular Call Your Doctor For Persistent or heavy bleeding, Temperature above 101.5 degrees, Redness, swelling, or pus at operative site, Severe pain at the operative site Discharge Instructions Discharge Instructions Previously Scheduled Follow-Up Appointments Thursday 11:00 AM EDT With: Pratima Reno PA-C Where: [facility] [address] [place] [address] [place] [address]- New Follow Up Appointments after Discharge Follow Up with Orquidea Cortez When: Comments: Call to schedule your follow up 1-2 weeks after BL nephrostomy tube placement Where: [facility] Emmanuel Solares, [address] [address]- [phone] Business (1) Medications What How Much When Instructions Next Dose Unchanged acetaminophen (acetaminophen 500 mg Tab) 1 Tablets By Mouth Every 4 hours as needed for for pain Unchanged aspirin (aspirin 81 mg Oral EC Tab) 1 Tablets By Mouth Every day Unchanged atorvastatin (atorvastatin 20 mg Tab) 1 Tablets By Mouth Every day Unchanged bifidobacterium-lactobacil huber (Probiotic + Colostrum) By Mouth Every day Unchanged cholecalciferol (Vitamin D3 2000 intl units) 50 Microgram By Mouth Every day Unchanged cranberry (Cranberry) By Mouth Every day Unchanged cyanocobalamin (Vitamin B-12 100 mcg oral tablet) 1 Tablets By Mouth Every day Unchanged darbepoetin raymond (Aranesp) Subcutaneous Every 4 weeks Unchanged docusate (Dulcolax Stool Softener) 100 Milligram By Mouth Every day Unchanged famotidine (famotidine 20 mg Tab) 1 Tablets By Mouth Once a day (at bedtime) Unchanged insulin glargine (Lantus insulin) 15 Units Subcutaneous Once a day (at bedtime) Unchanged insulin lispro (Humalog) 8 Units Subcutaneous Unchanged multivitamin with iron (Gentle Iron oral capsule) 1 Capsules By Mouth Every day Unchanged nitrofurantoin (Macrobid 100 mg Cap) 1 Capsules By Mouth 2 times a day take 1 cap morning of cath change and 12hrs after Unchanged Non-Formulary Medication (D-mannose) Unchanged oxybutynin (oxybutynin 10 mg ER Tab) 1 Tablets By Mouth Every day Allergies Myrbetriq (Multiple open mouth wounds) gabapentin (Unknown, Rash) lisinopril (Unknown, DRY COUGH, Cough) Problems Ongoing - Any problem that you are currently receiving treatment for. Asymptomatic microscopic hematuria Bilateral hydronephrosis BPH with urinary obstruction Diabetes Dysuria Family history of prostate cancer in father Glycosuria History of kidney stones HTN (hypertension) Hydroureter Hydroureteronephrosis Incomplete bladder emptying Kidney stones Microhematuria Multiple myeloma in remission Nocturia Noncompliant bladder OAB (overactive bladder) Prostate cancer Recurrent UTI Rheumatoid arthritis Ureteral stricture UTI (urinary tract infection) UTI symptoms Weak urine stream Historical - Any problem that you are no longer receiving treatment for. Elevated cholesterol Education Materials Bond Catheter Care, Male A Bond catheter is a soft, flexible tube that is placed into the bladder to drain urine. The catheter has a balloon to hold it (more content not included)... Normal [facility] Comment on above: Result Comment: Elec tronically Signed By: Dave RATLIFF, Josefina Iraheta\.br\Date and Time Signed: 03/07/25 13:28 EDT H&P Updateon 03-07-2025 H&P Update H&P Update Patient: PATSY CUNNINGHAM Age: 80 years Sex: Male : 1945 Associated Diagnoses: None Author: Diego RICKS, Orquidea Taylor Basic Information I have reviewed prior notes, spoke with patient, no changes to history. Patient elects to proceed with surgery as planned. Health Status Procedure history: Cysto with bilateral stent exchange, suprapubic catheter exchange, ureteroscopy, right retrograde pyelogram ([id number]) on 07/28/2024 at 79 Years. Comments: 08/26/2024 15:18 Cornelia Escalona done at [facility] Cystoscopy, Left RPG, Left ureteral stent placement ([id number]) on 06/04/2024 at 79 Years. Cystoscopy, Right RPG, Ureteral stent exchange, Suprapubic tube exchange, Transperineal needle biopsy of prostate, Transrectal ultrasound of prostate ([id number]) on 06/01/2024 at 79 Years. Cystoscopy, Right RPG, Ureteral stent exchange, SPT exchange ([id number]) on 02/03/2024 at 78 Years. Rt Ureteral Stent Exchange ([id number]) on 06/10/2023 at 78 Years. Lt ESWL ([id number]) on 06/10/2023 at 78 Years. Cystostomy and insertion of suprapubic tube ([id number]) on 03/05/2023 at 78 Years. Cystoscopic insertion of ureteric stent ([id number]) on 12/10/2022 at 77 Years. TURP - Transurethral resection of prostate ([id number]) on 08/27/2022 at 77 Years. Transurethral insertion of prostatic urethral lift implant ([id number]) on 05/05/2022 at 77 Years. Cysto/Lt Stent Removal ([id number]) on 08/20/2012 at 67 Years. Cysto/Lt RG/ Stone Basket/Lt Stent Placement ([id number]) on 08/05/2012 at 67 Years. LT ESWL ([id number]) on 03/02/2009 at 64 Years. heel spur. Stem cell transplant ([id number]). Dental surgical procedure ([id number]). Social History Social & Psychosocial Habits Alcohol 11/17/2024 Type: Beer Frequency: 1-2 times per year Use: Past 03/03/2025 Risk Assessment: Denies Alcohol Use Substance Abuse 03/03/2025 Risk Assessment: Denies Substance Abuse Tobacco 02/23/2025 Tobacco Use: quit 28 years Smokeless tobacco use: Never Type: Cigarettes Concerns about tobacco use in household: No Smoking Cessation Yes Comment: pt quit smoking 20 years ago - 04/21/2019 08:37 - Mario Hayden 03/03/2025 Risk Assessment: Denies Tobacco Use . Allergies: Allergic Reactions (Selected) Severe Myrbetriq- Multiple open mouth wounds. Severity Not Documented Gabapentin- Rash and unknown. Lisinopril- Cough, unknown and dry cough. Current medications: (Selected) Inpatient Medications Ordered Lactated Ringers IV Naila 1000 mL 1,000 mL: 1,000 mL, IV, 150 mL/hr, Routine, Start date 03/07/25 8:00:00 EDT, 6.7 hour(s), Total volume (mL): 1,000, 95.2 kg, 2.14, m2 cefazolin additive + Sodium Chloride 0.9% intravenous solution 50 mL: 2 gm = 1 EA, Powder-Inj, IV Piggyback, Once, Stop date 03/07/25 8:00:00 EDT, Routine, Start date 03/07/25 8:00:00 EDT, 100 mL/hr, Infuse over 30 minute(s), HOLD if patient has history of anaphylactic allergic reaction to Penicillin. Prescriptions Prescribed Macrobid 100 mg Cap: 100 mg = 1 cap(s), Oral, BID, take 1 cap morning of cath change and 12hrs after, # 30 cap(s), Refills(s) 1, Pharmacy: [id number], 171, cm, 07/22/23 9:22:00 EST, Height/Length Dosing, 94, kg, 07/22/23 9:22:00 EST, Weight Dosing oxybutynin 10 mg ER Tab: 10 mg = 1 tab(s), Oral, Daily, # 30 tab(s), Refills(s) 0, other reason (Rx) Documented Medications Documented Aranesp: SubCutaneous, q4wk Cranberry: Oral, Daily D-mannose: D-mannose Dulcolax Stool Softener: 100 mg, Oral, Daily Gentle Iron oral capsule: 1 cap(s), Oral, Daily, 30 cap(s), Refill(s) 0 Humalo unit(s), SubCutaneous, Refills(s) 0 Lantus insulin: 15 unit(s), SubCutaneous, Once a day (at bedtime), Refills(s) 0 Probiotic + Colostrum: Oral, Daily, Refill(s) 0 Vitamin B-12 100 mcg oral tablet: 100 mcg = 1 tab(s), Oral, Daily, Refills(s) 0 Vitamin D3 2000 intl units: 50 mcg, Oral, Daily, Refills(s) 0 acetaminophen 500 mg Tab: 500 mg = 1 tab(s), Oral, q4hr, PRN for pain aspirin 81 mg Oral EC Tab: 81 mg = 1 tab(s), Oral, Daily atorvastatin 20 mg Tab: 20 mg = 1 tab(s), Oral, Daily, Refills(s) 0 famotidine 20 mg Tab: 20 mg = 1 tab(s), Oral, Once a day (at bedtime), Refills(s) 0 Problem list: All Problems Asymptomatic microscopic hematuria / SNOMED CT 7989416842 / Confirmed Bilateral hydronephrosis / SNOMED CT 888936874 / Confirmed BPH with urinary obstruction / SNOMED CT 4533735513 / Confirmed Diabetes / SNOMED CT 622315891 / Confirmed Dysuria / SNOMED CT 68766696 / Confirmed Family history of prostate cancer in father / SNOMED CT 0456309328 / Confirmed Glycosuria / SNOMED CT 91893012 / Confirmed History of kidney stones / SNOMED CT 6086417707 / Confirmed HTN (hypertension) / SNOMED CT 9735954483 / Confirmed Hydroureter / SNOMED CT 038117305 / Confirmed Hydroureteronephrosis / SNOMED CT 41171671 / Confirmed Incomplete bladder emptying / SNOMED CT 000969260 / Confirmed Kidney stones / SNOMED CT 1 (more content not included)... Normal [facility] Comment on above: Result Comment: Elec tronically Signed By: Diego RICKS, Orquidea Taylor\.br\Date and Time Signed: 03/07/25 08:31 EDT Inpatient Patient Summaryon 03-07-2025 Inpatient Patient Summary Inpatient Patient Summary [address] [address] [facility] Clinical Discharge Instructions PERSON INFORMATION Name: PATSY CUNNINGHAM [facility] Admitting Physician: Orquidea Cortez MD Attending Physician: Orquidea Cortez MD PCP: DON RICKS, HELEN Discharge Diagnosis: Bilateral hydronephrosis; Chronic indwelling Bond catheter; Hydroureteronephrosis; Noncompliant bladder; Ureteral stricture Comment: PATIENT EDUCATION INFORMATION Instructions: [place] Catheter Care[place] Ureteral Stent Implantation, Care After Medication Leaflets: Follow up: With: Address: When: Orquidea Cortez [address] [place] [address], [address] [employer] [place] [phone] Business (1) Comments: Call to schedule your follow up 1-2 weeks after BL nephrostomy tube placement Type Location Start Finish State [place] [facility] [facility] [place] 03/15/2025 11:00 AM 03/15/2025 11:20 AM Confirmed MEDICATION LIST Medications to Continue with No Changes Other Medications acetaminophen (acetaminophen 500 mg Tab) 1 Tablets By Mouth every 4 hours as needed for pain. aspirin (aspirin 81 mg Oral EC Tab) 1 Tablets By Mouth every day. atorvastatin (atorvastatin 20 mg Tab) 1 Tablets By Mouth every day. bifidobacterium-lactobacil huber (Probiotic + Colostrum) By Mouth every day. cholecalciferol (Vitamin D3 2000 intl units) 50 Microgram By Mouth every day. cranberry (Cranberry) By Mouth every day. cyanocobalamin (Vitamin B-12 100 mcg oral tablet) 1 Tablets By Mouth every day. darbepoetin raymond (Aranesp) Subcutaneous every 4 weeks., pt goes to cancer center for routine bloodwork r/t hx cancer. if hgb less than 10 then pt gets aranesp injection. docusate (Dulcolax Stool Softener) 100 Milligram By Mouth every day. famotidine (famotidine 20 mg Tab) 1 Tablets By Mouth once a day (at bedtime). insulin glargine (Lantus insulin) 15 Units Subcutaneous once a day (at bedtime)., takes 10-20 units insulin lispro (Humalog) 8 Units Subcutaneous., sliding scale multivitamin with iron (Gentle Iron oral capsule) 1 Capsules By Mouth every day. nitrofurantoin (Macrobid 100 mg Cap) 1 Capsules By Mouth 2 times a day. take 1 cap morning of cath change and 12hrs after. Refills: 1. Non-Formulary Medication (D-mannose) oxybutynin (oxybutynin 10 mg ER Tab) 1 Tablets By Mouth every day. Refills: 0. Comment: Shannan [facility] Main OR PACU I Recordon 02-15 Main OR PACU I Record Main OR PACU I Rec ord PACU Phase I Document Type FT Summary Primary Physician: Orquidea Cortez MD Finalized Date/Time: 03/07/25 18:06:19 Pt. Name: PATSY CUNNINGHAM/Sex: 1945 Male Med Rec #: [id number] Physician: Orquidea Cortez MD Financial #: [id number] Pt. Type: A Room/Bed: Admit/Disch: 03/07/25 07:51:51 - 03/07/25 14:25:00 Institution: Case Times PACU I FT Pre-Care Text: Identifies barriers to communication and implements measures to provide psychological support Develops individualized plan of care, and ensures continuity of care Maintains patient's dignity and privacy, and maintains patient confidentiality Identifies and reports philosophical, cultural, and spiritual beliefs and values Identifies individual values and wishes concerning care Implements aseptic technique, and administers prescribed antibiotic therapy and immunizing agents as ordered Evaluates postoperative tissue perfusion Implements thermoregulation measures, and monitors body temperature Evaluates postoperative respiratory status Evaluates postoperative cardiac status Evaluates postoperative neurological status Assesses pain control, collaborated in initiating patient-controlled analgesia and implements alternative methods of pain control Verifies allergies, administers prescribed medications and solutions, evaluates response to medications Entry 1 In PACU I 03/07/25 12:28:00 Discharge from PACU 03/07/25 12:58:00 I Outcomes Met? Yes Last Modified By: Myrna Ang RN 03/07/25 18:06:03 Post-Care Text: The patient demonstrates knowledge of the expected response to the operative or invasive procedure The patient's care is consistent with the individualized perioperative plan of care The patient's right to privacy is maintained The patient's value system, lifestyle, ethnicity, and culture are considered, respected, and incorporated into the perioperative plan of care The patient participates in decisions affecting his or her perioperative plan of care The patient is free from signs and symptoms of infection The patient has wound/tissue perfusion consistent with or improved from baseline levels established preoperatively The patient is at or returning to normothermia at the conclusion of the immediate postoperative period The patient's respiratory function is consistent with or improved from baseline levels established preoperatively The patient's cardiovascular status is consistent with or improved from baseline levels established preoperatively The patient's cardiovascular status is consistent with or improved from baseline levels established preoperatively The patient demonstrates and/or reports adequate pain control throughout the perioperative period The patient received appropriate medication(s), safely administered during the perioperative period Acuity Level PACU I FT Entry 1 Start Time 03/07/25 12:28:00 Stop Time 03/07/25 12:58:00 Acuity Level Acuity Level I Last Modified By: Myrna Ang RN 03/07/25 18:06:15 Finalized By: Myrna Ang RN Document Signatures Signed By: Myrna Ang RN 03/07/25 18:06 [facility] Main OR PACU II Recordon Main OR PACU II Record Main OR PACU II R ecord PACU Phase II Document Type FT Summary Primary Physician: Orquidea Cortez MD Finalized Date/Time: 03/07/25 14:31:22 Pt. Name: PATSY CUNNINGHAM /Sex: 1945 Male Med Rec #: [id number] Physician: Orquidea Cortez MD Financial #: [id number] Pt. Type: A Room/Bed: [facility] Admit/Disch: 03/07/25 07:51:51 - Institution: Case Times PACU II FT Pre-Care Text: Identifies barriers to communication and implements measures to provide psychological support and determines knowledge level Develops individualized plan of care, and ensures continuity of care Maintains patient's dignity and privacy, and maintains patient confidentiality Identifies and reports philosophical, cultural, and spiritual beliefs and values Identifies individual values and wishes concerning care administers prescribed antibiotic therapy and immunizing agents as ordered, Evaluates postoperative tissue perfusion Implements thermoregulation measures, and monitors body temperature Evaluates postoperative respiratory status Evaluates postoperative cardiac status Evaluates postoperative neurological status Assesses pain control, collaborated in initiating patient-controlled analgesia and implements alternative methods of pain control Verifies allergies, administers prescribed medications and solutions, evaluates response to medications Entry 1 In PACU II 03/07/25 13:05:00 Discharge from PACU 03/07/25 14:25:00 II Outcomes Met? Yes Last Modified By: Ana Castañeda RN 03/07/25 14:31:20 Post-Care Text: The patient demonstrates knowledge of the expected response to the operative or invasive procedure The patient's care is consistent with the individualized perioperative plan of care The patient's right to privacy is maintained The patient's value system, lifestyle, ethnicity, and culture are considered, respected, and incorporated into the perioperative plan of care The patient participates in decisions affecting his or her perioperative plan of care. The patient is free from signs and symptoms of infection The patient has wound/tissue perfusion consistent with or improved from baseline levels established preoperatively The patient is at or returning to normothermia at the conclusion of the immediate postoperative period The patient's respiratory function is consistent with or improved from baseline levels established preoperatively The patient's cardiovascular status is consistent with or improved from baseline levels established preoperatively The patient's neurological status is consistent with or improved from baseline levels established preoperatively The patient demonstrates and/or reports adequate pain control throughout the perioperative period The patient received appropriate medication(s), safely administered during the perioperative period Finalized By: Ana Castañeda RN Document Signatures Signed By: Ana Castañeda RN 03/07/25 14:31 Normal [facility] Main OR Preoperative Recordo n 03-07-2025 Main OR Preoperative Record Main OR Preoperative Record PreOp Document Type FT Summary Primary Physician: Orquidea Cortez MD Finalized Date/Time: 03/07/25 12:01:52 Pt. Name: PATSY CUNNINGHAM /Sex: 1945 Male Med Rec #: [id number] Physician: Orquidea Cortez MD Financial #: [id number] Pt. Type: Room/Bed: [place] [address] Admit/Disch: 03/07/25 07:51:51 - Institution: Case Times PreOp FT Pre-Care Text: Verifies consent for planned procedure, identifies individual values and wishes concerning care, includes family members in perioperative teaching Entry 1 Patient Times. In Pre Surgery 03/07/25 08:00:00 Out Pre Surgery 03/07/25 11:45:00 Last Modified By: Kelsey Daniels Ii 03/07/25 12:01:50 Post-Care Text: The patient participates in decisions affecting his or her perioperative plan of care Finalized By: Kelsey Daniels Ii Document Signatures Signed By: Kelsey Daniels Ii 03/07/25 12:01 Normal [facility] Operative Reporton Operative Report Operative Report Patient: PATSY CUNNINGHAM Age: 80 years Sex: Male : 1945 Associated Diagnoses: None Author: Orquidea Cortez MD Procedure Procedure Date: 03/07/2025. Confirmed: patient, procedure, site, safety procedures followed. Performed by: Orquidea Cortez MD, anesthesiologist (Topher Hebert [facility]). Type of procedure: 1. Cystoscopy, bilateral retrograde pyelogram, bilateral ureteral stent exchange 2. Suprapubic catheter exchange. Informed consent: signed by patient. Indication: 80-year-old male with a history of noncompliant bladder with bilateral vesicoureteral reflux leading to worsening CKD, ureteral strictures and bilateral hydroureteronephrosis managed with chronic indwelling bilateral ureteral stents and suprapubic catheter. He presents today for routine exchange. Risks discussed including but not limited to bleeding, pain, infection, damage to surrounding structures, and need for additional procedures.. Findings: Extremely small, edematous bladder. Fixed, elevated bladder neck. Bilateral ureteral stents in appropriate position. Widely patent ureteral orifices left greater than right. Hydronephrotic drip following replacement of right ureteral stent however not significantly purulent urine. Urine sent for culture. Moderate hydronephrosis on the right. New 7Fr x26cm JJ stent placed on right Left collecting system decompressed. New 7Fr x 24 cm JJ stent placed on left (due to inventory) New 16 Latvian suprapubic catheter exchanges, 10 cc in balloon.. Procedure tolerated: well. Specimen: right renal pelvis urine for culture. Complications: none. PROCEDURE IN DETAIL: After the risks, benefits, indications, alternatives and expectations of the procedure were reviewed with the patient and informed consent was obtained, the patient was taken to operative suite and placed in the supine position. Sequential compression devices were placed on bilateral lower extremities. General anesthesia LMA was induced and the patient was transitioned to the lithotomy position and prepped and draped in the usual sterile fashion for cystoscopy. A preoperative dose of antibiotics was given. A timeout was observed prior to initiating the procedure. Lidocaine gel was inserted into the urethra and bladder. We began the procedure using a 22.5 Latvian rigid cystoscope, 30 degree lens, and inserted this into the bladder without any issue. We noted a normal appearance of the urethra en route to the bladder, findings as above. Once inside the bladder, a cystoscopic examination revealed no bladder tumors, stones. Bilateral ureteral orifices were orthotopic and patent. A hybrid straight wire was inserted to the right ureteral orifice alongside the indwelling stent up to the kidney confirmed on fluoroscopy. The indwelling right ureteral stent was removed without difficulty. A 5 Latvian open-ended catheter was inserted over the wire, hydronephrotic drip was noted and urine sent for culture based on patient's history of recurrent UTIs. Contrast was injected for retrograde pyelogram findings above. The stent was backloaded through the cystoscope and a new 7 Latvian by 26 cm double-J right ureteral stent was inserted over the wire, with adequate curl in the renal pelvis and bladder confirmed on direct and fluoroscopic guidance. Attention was turned to the left ureteral orifice and the same was repeated. A 7Fr x 24 cm JJ stent was placed due to product availability. The bladder was inspected one final time to ensure adequate positioning of the stents, but also ensure that there was no further trauma to the bladder. The indwelling suprapubic catheter was removed and a new 16 Latvian two-way Bond catheter was inserted without difficulty, 10 cc in the balloon. This was confirmed under direct visualization. The bladder was drained and the cystoscope removed. The procedure was then concluded and the patient was awakened from general anesthesia and sent to the PACU in satisfactory condition. CULTURES TAKEN: none PATIENT CONDITION: Stable and extubated PLAN: Follow-up 1 to 2 weeks after bilateral nephrostomy tubes are placed. . Impression and Plan Diagnosis Bilateral hydronephrosis (MKR03-NI N13.30, Discharge, Medical). Chronic indwelling Bond catheter (DLI67-PV Z97.8, Discharge, Medical). Hydroureteronephrosis (FKL73-JL N13.30, Discharge, Medical). 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 Ureteral stricture (NCA20-IW N13.5, Discharge, Medical). Diagnosis Bilateral hydronephrosis (UHO63-HW N13.30, Discharge, Medical). Chronic indwelling Bond catheter (LBH27-LI Z97.8, Discharge, Medical). Hydroureteronephrosis (USK38-TJ N13.30, Discharge, Medical). Noncompliant bladder (URO11-IM N31.9, Discharge, Medical). Ureteral stricture (YDV00-VC N13.5, Discharge, Medical). Normal [facility] Comment on above: Result Comment: Elec tronically Signed By: Diego RICKS, Orquidea [place]\.br\Date and Time Signed: 03/07/25 12:59 EDT Outpatient Surgery Discharge Instructionon 03-07-2025 Outpatient Surgery Discharge Instruction Outpatient Surgery Discharge Instruction [place] [id number] Patient Discharge Instructions PERSON INFORMATION Name: PATSY CUNNINGHAM Date of : 1945 Current Date: 03/07/2025 12:38:01 PHYSICIANS Admitting Physician: Orquidea Cortez MD Discharge Diagnosis: Bilateral hydronephrosis; Chronic indwelling Bond catheter; Hydroureteronephrosis; Noncompliant bladder; Ureteral stricture PATSY CUNNINGHAM has been given the following list of follow-up instructions, prescriptions, and patient education materials: PATIENT FOLLOW-UP INFORMATION Diet: Regular Discharge Activity: Ambulate as tolerated, Resume normal activities in 24 hours, Arrange for a responsible adult supervision for 24 hours, Expect mild pain, Expect minimal amount of drainage and/or bleeding, Activity as tolerated Discharge Restrictions: No driving for 24 hrs Call Your Doctor For: Persistent or heavy bleeding, Temperature above 101.5 degrees, Redness, swelling, or pus at operative site, Severe pain at the operative site IF UNABLE TO CONTACT YOUR PHYSICIAN AND YOU FEEL IT IS AN EMERGENCY, GO TO THE NEAREST EMERGENCY ROOM OR CALL 911 I, PATSY CUNNINGHAM, have received the attached patient education materials/instructions and have verbalized understanding: May we do a follow up call? Yes No I was present when discharge instructions were given ____ Patient Signature _ Date Clinican/Nurse Signature Date Follow up: With: Address: When: Orquidea Solares, [place] [address], [address] [address] [phone] Business (1) Comments: Call to schedule your follow up 1-2 weeks after BL nephrostomy tube placement Type Location Start Finish State [place] [facility] 03/15/2025 11:00 AM 03/15/2025 11:20 AM Confirmed Pharmacy Information: You may receive a survey from [employer] asking you to rate your care experience. Your feedback is important and will help us understand what we do well and how we can improve the quality of care we provide to you, your loved ones and our community. It???s an honor to serve you. Thank you for choosing [facility] HERE ARE THE MEDICATION CHANGES THAT OCCURRED DURING YOUR HOSPITAL STAY Medications to Continue with No Changes Other Medications acetaminophen (acetaminophen 500 mg Tab) 1 Tablets By Mouth every 4 hours as needed for pain. aspirin (aspirin 81 mg Oral EC Tab) 1 Tablets By Mouth every day. atorvastatin (atorvastatin 20 mg Tab) 1 Tablets By Mouth every day. bifidobacterium-lactobacil huber (Probiotic + Colostrum) By Mouth every day. cholecalciferol (Vitamin D3 2000 intl units) 50 Microgram By Mouth every day. cranberry (Cranberry) By Mouth every day. cyanocobalamin (Vitamin B-12 100 mcg oral tablet) 1 Tablets By Mouth every day. darbepoetin raymond (Aranesp) Subcutaneous every 4 weeks., pt goes to cancer center for routine bloodwork r/t hx cancer. if hgb less than 10 then pt gets aranesp injection. docusate (Dulcolax Stool Softener) 100 Milligram By Mouth every day. famotidine (famotidine 20 mg Tab) 1 Tablets By Mouth once a day (at bedtime). insulin glargine (Lantus insulin) 15 Units Subcutaneous once a day (at bedtime)., takes 10-20 units insulin lispro (Humalog) 8 Units Subcutaneous., sliding scale multivitamin with iron (Gentle Iron oral capsule) 1 Capsules By Mouth every day. nitrofurantoin (Macrobid 100 mg Cap) 1 Capsules By Mouth 2 times a day. take 1 cap morning of cath change and 12hrs after. Refills: 1. Non-Formulary Medication (D-mannose) oxybutynin (oxybutynin 10 mg ER Tab) 1 Tablets By Mouth every day. Refills: 0. PATIENT EDUCATION INFORMATION Instructions: Bond Catheter Care, Male A Bond catheter is a soft, flexible tube that is placed into the bladder to drain urine. The catheter has a balloon to hold it inside the bladder. A Bond catheter may be inserted if: ??? You leak urine or are not able to control when you urinate (urinary incontinence). ??? You are not able to urinate when you need to (urinary retention). ??? You had prostate surgery or surgery on the genitals. ??? You have certain medical conditions, such as multiple sclerosis, dementia, or a spinal cord injury. To Prevent Infection: 1. Wash your hands with soap and water before and after handling your catheter. 2. Using mild soap and warm water on a clean washcloth; twice a day. ??? Clean the area on your body closest to the catheter insertion site using a circular motion, moving away from the catheter. Never wipe toward the catheter because this cou (more content not included)... Normal [facility] Proceduralon 03-07-2025 Procedural Procedural Patient: PATSY CUNNINGHAM Age: 80 years Sex: Male : 1945 Associated Diagnoses: None Author: Delmar Max MD Preoperative Information Anesthesia Preop Info: Time patient last ate or drank 03/07/2025 00:00:00. Anesthesia history: Patient history: None. Family history+: None. Informed consent: Signed by patient. Including risks, benefits, and alternatives related to the: Anesthetic plan. Re-evaluation prior to induction: Delmar Max MD. Review of Systems Eye Ear/Nose/Mouth/Throat Respiratory: No shortness of breath, No cough. Cardiovascular: Negative, No chest pain. Gastrointestinal: No heartburn. Musculoskeletal Neurologic Health Status Allergies: Allergic Reactions (Selected) Severe Myrbetriq- Multiple open mouth wounds. Severity Not Documented Gabapentin- Rash and unknown. Lisinopril- Cough, unknown and dry cough., Allergies (3) Active Severity Reaction Myrbetriq Severe Multiple open mouth wounds gabapentin Rash, Unknown lisinopril Cough, DRY COUGH, Unknown Current medications: (Selected) Inpatient Medications Ordered Lactated Ringers IV Naila 1000 mL 1,000 mL: 1,000 mL, IV, 150 mL/hr, Routine, Start date 03/07/25 8:00:00 EDT, 6.7 hour(s), Total volume (mL): 1,000, 95.2 kg, 2.14, m2 Prescriptions Prescribed Macrobid 100 mg Cap: 100 mg = 1 cap(s), Oral, BID, take 1 cap morning of cath change and 12hrs after, # 30 cap(s), Refills(s) 1, Pharmacy: [id number], 171, cm, 07/22/23 9:22:00 EST, Height/Length Dosing, 94, kg, 07/22/23 9:22:00 EST, Weight Dosing oxybutynin 10 mg ER Tab: 10 mg = 1 tab(s), Oral, Daily, # 30 tab(s), Refills(s) 0, other reason (Rx) Documented Medications Documented Aranesp: SubCutaneous, q4wk Cranberry: Oral, Daily D-mannose: D-mannose Dulcolax Stool Softener: 100 mg, Oral, Daily Gentle Iron oral capsule: 1 cap(s), Oral, Daily, 30 cap(s), Refill(s) 0 Humalo unit(s), SubCutaneous, Refills(s) 0 Lantus insulin: 15 unit(s), SubCutaneous, Once a day (at bedtime), Refills(s) 0 Probiotic + Colostrum: Oral, Daily, Refill(s) 0 Vitamin B-12 100 mcg oral tablet: 100 mcg = 1 tab(s), Oral, Daily, Refills(s) 0 Vitamin D3 2000 intl units: 50 mcg, Oral, Daily, Refills(s) 0 acetaminophen 500 mg Tab: 500 mg = 1 tab(s), Oral, q4hr, PRN for pain aspirin 81 mg Oral EC Tab: 81 mg = 1 tab(s), Oral, Daily atorvastatin 20 mg Tab: 20 mg = 1 tab(s), Oral, Daily, Refills(s) 0 famotidine 20 mg Tab: 20 mg = 1 tab(s), Oral, Once a day (at bedtime), Refills(s) 0, Home Medications (16) Active acetaminophen 500 mg Tab 500 mg = 1 tab(s), PRN, Oral, q4hr Aranesp , SubCutaneous, q4wk aspirin 81 mg Oral EC Tab 81 mg = 1 tab(s), Oral, Daily atorvastatin 20 mg Tab 20 mg = 1 tab(s), Oral, Daily Cranberry , Oral, Daily D-mannose Dulcolax Stool Softener 100 mg, Oral, Daily famotidine 20 mg Tab 20 mg = 1 tab(s), Oral, Once a day (at bedtime) Gentle Iron oral capsule 1 cap(s), Oral, Daily Humalog 8 unit(s), SubCutaneous Lantus insulin 15 unit(s), SubCutaneous, Once a day (at bedtime) Macrobid 100 mg Cap 100 mg = 1 cap(s), Oral, BID oxybutynin 10 mg ER Tab 10 mg = 1 tab(s), Oral, Daily Probiotic + Colostrum , Oral, Daily Vitamin B-12 100 mcg oral tablet 100 mcg = 1 tab(s), Oral, Daily Vitamin D3 2000 intl units 50 mcg, Oral, Daily , Medications (1) Active Scheduled: (0) Continuous: (1) Lactated Ringers 1,000 mL 1,000 mL, IV, 150 mL/hr PRN: (0) Problem list: All Problems Asymptomatic microscopic hematuria / SNOMED CT 7010118138 / Confirmed Bilateral hydronephrosis / SNOMED CT 681403103 / Confirmed BPH with urinary obstruction / SNOMED CT 4233456843 / Confirmed Diabetes / SNOMED CT 830656333 / Confirmed Dysuria / SNOMED CT 08561837 / Confirmed Family history of prostate cancer in father / SNOMED CT 9652768753 / Confirmed Glycosuria / SNOMED CT 26774797 / Confirmed History of kidney stones / SNOMED CT 2416312373 / Confirmed HTN (hypertension) / SNOMED CT 5926915240 / Confirmed Hydroureter / SNOMED CT 703367806 / Confirmed Hydroureteronephrosis / SNOMED CT 44112372 / Confirmed Incomplete bladder emptying / SNOMED CT 399219817 / Confirmed Kidney stones / SNOMED CT 670689665 / Confirmed Microhematuria / SNOMED CT 215652374 / Confirmed Multiple myeloma in remission / SNOMED CT 396858186 / Confirmed Nocturia / SNOMED CT 979654157 / Confirmed Noncompliant bladder / SNOMED CT 0674763590 / Confirmed OAB (overactive bladder) / SNOMED CT 6056072877 / Confirmed Prostate cancer / SNOMED CT 9279589049 / Confirmed Recurrent UTI / SNOMED CT 589562055 / Confirmed Rheumatoid arthritis / SNOMED CT 044565674 / Confirmed Ureteral stricture / SNOMED CT 57282009 / Confirmed UTI (urinary tract infection) / SNOMED CT 293627412 / Confirmed UTI symptoms / SNOMED CT 732643519 / Confirmed Weak urine stream / SNOMED CT 555714092 / Confirmed Resolved: Elevated cholesterol / SNO (more content not included)... Normal [facility] Procedural Procedural Patient: PATSY CUNNINGHAM Age: 80 years Sex: Male : 1945 Associated Diagnoses: None Author: Mansoor RICKS, Delmar Blum Postoperative Information Postoperative disposition: Postoperative disposition: To PACU. Optimetrix number: Optimetrix number [id number]. Anesthetic utilized: General. Health Status Allergies: Allergic Reactions (Selected) Severe Myrbetriq- Multiple open mouth wounds. Severity Not Documented Gabapentin- Rash and unknown. Lisinopril- Cough, unknown and dry cough. Physical Examination Vital Signs 03/07/2025 13:06 EDT Heart Rate Monitored 67 bpm SpO2 95 % 03/07/2025 13:06 EDT Systolic Blood Pressure 173 mmHg HI Diastolic Blood Pressure 92 mmHg HI Mean Arterial Pressure, Cuff 119 mmHg 03/07/2025 13:06 EDT Respiratory Rate 18 br/min Pain Assessment: Controlled. General: Awake, Appropriate. Respiratory: Adequate air exchange. Cardiovascular: Stable. Neurological Assessment Anesthetic outcome No anesthetic complications noted. Adequate pain relief. no nausea. Review / Management Condition: Stable. Plan Transfer/Discharge: Transfer/Discharge Discharge when meets criteria. Normal [facility] CBC W Auto Differential pane l (Bld)on 03-04-2025 Basophils (Bld) [#/Vol] 10*3/uL Normal <0.11 C [facility] Comment on above: Order Comment: Speci men Type: BLOOD SPECIMEN Ordering Facility: [facility] Address: [address] [place] [address] Performed By: #### 5 7021-8 #### [facility] CLIA [id number] [address] [place] [address] [place] Basophils/100 WBC (Bld) 0.3 % Normal [facility] Comment on above: Order Comment: Speci men Type: BLOOD SPECIMEN Ordering Facility: [facility] Address: [address] [place] [address] Performed By: #### 5 7021-8 #### [facility] CLIA [id number] [address] [place] [address] [place] Differential cell count method Nom (Bld) Auto Normal [facility] Comment on above: Order Comment: Speci men Type: BLOOD SPECIMEN Ordering Facility: [facility] Address: [address] [place] [address] Performed By: #### 5 7021-8 #### [facility] CLIA [id number] [address] [place] [address] [place] Eosinophils (Bld) [#/Vol] 0.30 10*3/uL Normal <0.46 [facility] Comment on above: Order Comment: Speci men Type: BLOOD SPECIMEN Ordering Facility: [facility] Address: [address] [place] [address] Performed By: #### 5 7021-8 #### [facility] CLIA [id number] [address] [place] [address] [place] Eosinophils/100 WBC (Bld) 4.4 % Normal [facility] Comment on above: Order Comment: Speci men Type: BLOOD SPECIMEN Ordering Facility: [facility] Address: [address] [place] [address] Performed By: #### 5 7021-8 #### [facility] CLIA [id number] [address] [id number] [address] [place] Erythrocyte distribution width (RBC) [Ratio] 15.2 % High 11.5-15.0 [facility] Comment on above: Order Comment: Speci men Type: BLOOD SPECIMEN Ordering Facility: [facility] Address: [address] [place] [address] Performed By: #### 5 7021-8 #### [facility] CLIA [id number] [address] [place] [address] [place] Hematocrit (Bld) [Volume fraction] 31.7 % Low 39.0-51.0 [facility] Comment on above: Order Comment: Speci men Type: BLOOD SPECIMEN Ordering Facility: [facility] Address: [address] [place] [address] Performed By: #### 5 7021-8 #### [facility] CLIA [id number] [address] [place] [address] [place] Hemoglobin (Bld) [Mass/Vol] 10.1 g/dL Low 13.0-17.0 [facility] Comment on above: Order Comment: Speci men Type: BLOOD SPECIMEN Ordering Facility: [facility] Address: [address] [place] [address] Performed By: #### 5 7021-8 #### [facility] CLIA [id number] [address] [place] [address] [place] Immature granulocytes (Bld) [#/Vol] 0.03 10*3/uL Normal <0.10 [facility] Comment on above: Order Comment: Speci men Type: BLOOD SPECIMEN Ordering Facility: [facility] Address: [address] [place] [address] Performed By: #### 5 7021-8 #### [facility] CLIA [id number] [address] [place] [address] [place] Immature granulocytes/100 WBC (Bld) 0.4 % Normal [facility] Comment on above: Order Comment: Speci men Type: BLOOD SPECIMEN Ordering Facility: [facility] Address: [address] [place] [address] Performed By: #### 5 7021-8 #### [facility] CLIA [id number] [address] [place] [address] [place] Lymphocytes (Bld) [#/Vol] 1.10 10*3/uL Normal 1.00-4.00 [facility] Comment on above: Order Comment: Speci men Type: BLOOD SPECIMEN Ordering Facility: [facility] Address: [address] [place] [address] Performed By: #### 5 7021-8 #### [facility] CLIA [id number] [address] [place] [address] [place] Lymphocytes/100 WBC (Bld) 16.1 % Normal [facility] Comment on above: Order Comment: Speci men Type: BLOOD SPECIMEN Ordering Facility: [facility] Address: [address] [place] [address] Performed By: #### 5 7021-8 #### [facility] CLIA [id number] [address] [place] [address] [place] MCH (RBC) [Entitic mass] 34.5 pg High 26.0-34.0 [facility] Comment on above: Order Comment: Speci men Type: BLOOD SPECIMEN Ordering Facility: [facility] Address: [address] [place] [address] Performed By: #### 5 7021-8 #### [facility] CLIA [id number] [address] [place] [address] [place] MCHC (RBC) [Mass/Vol] 31.9 g/dL Normal 30.5-36.0 [facility] Comment on above: Order Comment: Speci men Type: BLOOD SPECIMEN Ordering Facility: [facility] Address: [address] [place] [address] Performed By: #### 5 7021-8 #### [facility] CLIA [id number] [address] [place] [address] [place] MCV (RBC) [Entitic vol] 108.2 fL High 80.0-100.0 C [facility] Comment on above: Order Comment: Speci men Type: BLOOD SPECIMEN Ordering Facility: [facility] Address: [address] [place] [address] Performed By: #### 5 7021-8 #### [facility] CLIA [id number] [address] [place] [address] [place] Monocytes (Bld) [#/Vol] 0.46 10*3/uL Normal <0.87 [facility] Comment on above: Order Comment: Speci men Type: BLOOD SPECIMEN Ordering Facility: [facility] Address: [address] [place] [address] Performed By: #### 5 7021-8 #### [facility] CLIA [id number] [address] [place] [address] [place] Monocytes/100 WBC (Bld) 6.7 % Normal [facility] Comment on above: Order Comment: Speci men Type: BLOOD SPECIMEN Ordering Facility: [facility] Address: [address] [place] [address] Performed By: #### 5 7021-8 #### [facility] CLIA [id number] [address] [place] [address] [place] Neutrophils (Bld) [#/Vol] 4.94 10*3/uL Normal 1.45-7.50 [facility] Comment on above: Order Comment: Speci men Type: BLOOD SPECIMEN Ordering Facility: [facility] Address: [address] [place] [address] Performed By: #### 5 7021-8 #### [facility] CLIA [id number] [address] [place] [address] [place] Neutrophils/100 WBC (Bld) 72.1 % Normal [facility] Comment on above: Order Comment: Speci men Type: BLOOD SPECIMEN Ordering Facility: [facility] Address: [address] [place] [address] Performed By: #### 5 7021-8 #### [facility] CLIA [id number] [address] [place] [address] [place] Nucleated RBC (Bld) [#/Vol] 10*3/uL Normal <0.01 [facility] Comment on above: Order Comment: Speci men Type: BLOOD SPECIMEN Ordering Facility: [facility] Address: [address] [place] [address] Performed By: #### 5 7021-8 #### [facility] CLIA [id number] [address] [place] [address] [place] Nucleated RBC/100 WBC (Bld) [Ratio] 0.0 /100 WBC Normal [facility] Comment on above: Order Comment: Speci men Type: BLOOD SPECIMEN Ordering Facility: [facility] Address: [address] [place] [address] Performed By: #### 5 7021-8 #### [facility] CLIA [id number] [address] [place] [address] [place] Platelet mean volume (Bld) [Entitic vol] 10.1 fL Normal 9.0-12.7 [facility] Comment on above: Order Comment: Speci men Type: BLOOD SPECIMEN Ordering Facility: [facility] Address: [address] [place] [address] Performed By: #### 5 7021-8 #### [facility] CLIA [id number] [address] [place] [address] [place] Platelets (Bld) [#/Vol] 204 10*3/uL Normal 150-400 [facility] Comment on above: Order Comment: Speci men Type: BLOOD SPECIMEN Ordering Facility: [facility] Address: [address] [place] [address] Performed By: #### 5 7021-8 #### [facility] CLIA [id number] [address] [place] [address] [place] RBC (Bld) [#/Vol] 2.93 10*6/uL Low 4.20-6.00 [facility] Comment on above: Order Comment: Sumeet amezquita Type: BLOOD SPECIMEN Ordering Facility: [facility] Address: [address] [place] [address] Performed By: #### 5 7021-8 #### [facility] CLIA [id number] [address] [place] [address] [place] WBC (Bld) [#/Vol] 6.85 10*3/uL Normal 3.70-11.00 [facility] Comment on above: Order Comment: Sumeet amezquita Type: BLOOD SPECIMEN Ordering Facility: [facility] Address: [address] [place] [address] Performed By: #### 5 7021-8 #### [facility] CLIA [id number] [address] [place] [address] [place] PT panel Coag (PPP)on 2024 INR Coag (PPP) [Relative time] 1.0 {INR} Normal 0.9-1.3 [facility] Comment on above: Order Comment: Sumeet amezquita Type: BLOOD SPECIMEN Ordering Facility: [facility] Address: [address] [place] [address] Result Comment: Aleja min K Antagonist (VKA) Therapeutic Range: INR 2 to 3 (Target INR of 2.5) Note: For patients treated with VKA drugs, such as warfarin, the [place] [employer] 2012 Guideline recommends a therapeutic INR range of 2 to 3 (target INR of 2.5). This recommendation includes high-risk patients with antiphospholipid syndrome with previous arterial or venous thromboembolism, current-generation mechanical or bioprosthetic aortic heart valve replacement. Note: Patients with mechanical aortic valve replacement and additional risk factors for thromboembolic events (atrial fibrillation, previous thromboembolism, LV dysfunction, hypercoagulable conditions) or an older generation mechanical AVR (i.e., ball in-Cage) or any mechanical MVR should have a INR therapeutic range of 2.5 to 3.5 (target INR of 3). Guyatt GH, et al. Chest 2012, 141:7S-47S Ramona RA, et al. JAC 2017, 70: 252-289 Performed By: #### 3 4528-0 #### [facility] [place] [id number] [address] [place] [address] [place] PT Coag (PPP) [Time] 10.5 s Normal 9.7-13.0 [facility] Comment on above: Order Comment: Speci men Type: BLOOD SPECIMEN Ordering Facility: [facility] Address: [address] [place] [address] Performed By: #### 3 4528-0 #### [facility] [place] [id number] [address] [place] [address] [facility] Urineon 02-24-2025 Bacteria identified Cx Nom (U) Microbiology PROCEDURE: Urine Culture [R1] SOURCE: U Cath BODY SITE: COLLECTED DATE/TIME: 02/22/2025 13:22 EDT RECEIVED DATE/TIME: 02/22/2025 19:18 EDT START DATE/TIME: 02/22/2025 19:18 EDT FREE TEXT SOURCE: Pratima Reno PA-C, PA-C, Pratima FINAL REPORTS Final Report [] Verified Date/Time: 02/24/2025 10:51 EDT 40,000 cfu/ml Morganella morganii SUSCEPTIBILITY RESULTS _ LEGEND: S=Susceptible, N/R=Not Reported, Blank=Data not available, or drug not advisable or tested, I=Intermediate, ESBL=Extended spectrum beta-lactamase, R=Resistant, TFG=Thymidine-dependent strain, RADHA=Beta-lactamase positive, DEEPA=mcg/m;(mg/L), S*=Predicted susceptible interp, R*=Predicted resistant interp Mormor Antibiotic DEEPA Dilutn DEEPA Interp Ampicillin >16 R Ampicillin/ >16/8 R Sulbactam Cefazolin >16 R Cefepime <=2 S Ceftazidime/ <=8 S Avibactam Ceftriaxone <=1 S Cefuroxime >16 R Ciprofloxacin <=0.25 S Ertapenem <=0.5 S Gentamicin <=2 S Levofloxacin <=0.5 S Meropenem <=1 S Nitrofurantoin 64 R* Piperacillin/ <=8 S Tazobactam Tetracycline >8 R Tobramycin <=2 S Trimethoprim/ <=2/38 S Sulfa Performing Locations R1: This test was performed at: [facility], [address] [place] [address], [address] , , [facility] Comment on above: Performed By: #### 2 [id number] #### [facility] [address] [place] [address] CNPNon 02-24-2025 CNPN Telephone (IRRFV) -- PATSY CUNNINGHAM ([id number]) 1945 Date Time Provider Department 02/24/25 BIBIANA MOREIRA IRRFV During your visit today, we recorded the following information about you: Bibiana Moreira 02/24/2025 1:55 PM Signed Order scanned in Waiting for previous imaging Allergies As of Date: 02/24/2025 Noted Allergy Reaction MIRABEGRON 06/27/2022 6 - Diarrhea 8 - GI Upset GABAPENTIN 08/20/2021 2 - Rash Date Reviewed: 04/15/2023 Reviewed by: Manuel Oropeza MA - Fully Assessed Reason for Visit: neph tube placement [Other] Prescriptions as of 02/24/2025 - aspirin 81 mg chewable tablet mg [...] INSULIN 100 unit/mL (3 mL) - insulin lispro (HUMALOG KWIKPEN) 100 unit/mL pen Inject 8 Units subcutaneously three times daily before meals. Plus sliding scale. - docusate sodium (STOOL SOFTENER) 100 mg capsule Take 100 mg by mouth twice daily as needed for constipation. - phosphorus (PHOSPHOROUS) 250 mg tablet Take 1 tablet by mouth three times daily. 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] 07/03/2022 Rheumatoid arthritis (HCC) [M06.9] 12/15/2022 Prostate cancer (HCC) [C61] 02/11/2023 Benign prostatic hyperplasia with urinary obstr*12/10/2021 Stage 3 chronic kidney disease (HCC) [N18.30] 05/08/2022 Diabetes (HCC) [E11.9] 02/11/2023 Hypercholesterolemia [E78.00] 09/04/2022 HTN (hypertension) [I10] 02/11/2023 Iron deficiency anemia [D50.9] 02/11/2023 Encounter Status:Closed by BIBIANA MOREIRA on 02/24/25 [facility] Ambulatory Visit Summaryon 0 02-23-2025 Ambulatory Visit Summary Ambulatory Visit Summary PATSY CUNNINGHAM :1945 Visit Date:02/23/2025 Ambulatory Visit Instructions Your Diagnosis Ureteral stricture Recurrent UTI Prostate cancer Noncompliant bladder BPH with urinary obstruction Incomplete bladder emptying Hydroureteronephrosis Kidney stones Family history of prostate cancer in father Your Care Team Attending Physician - Diego RICKS, Orquidea Taylor Primary Care Physician - DON RICKS, HELEN This Is Your Medications List nitrofurantoin (Macrobid 100 mg Cap) oxybutynin (oxybutynin 10 mg ER Tab) Contact prescribing physician if questions or concerns Non-Formulary Medication (D-mannose) Non-Formulary Medication (iron) aspirin (aspirin 81 mg Chew Tab) atorvastatin (atorvastatin 20 mg Tab) bifidobacterium-lactobacil huber (Probiotic + Colostrum) cholecalciferol (Vitamin D3 2000 intl units) cranberry (Cranberry) cyanocobalamin (Vitamin B-12 100 mcg oral tablet) docusate (Dulcolax Stool Softener) famotidine (famotidine 20 mg Tab) insulin glargine (Lantus insulin) insulin lispro (Humalog) multivitamin with iron (Gentle Iron oral capsule) Procedures Performed Change of suprapubic catheter (07/28/2024), Cystoscopic insertion of ureteric stent (06/04/2024), Transperineal needle biopsy of prostate (06/01/2024), Cystoscopic insertion of ureteric stent (02/03/2024), Cystoscopic replacement of ureteric stent (06/10/2023), ESWL of kidney (06/10/2023), Cystostomy and insertion of suprapubic tube (03/05/2023), Cystoscopic insertion of ureteric stent (12/10/2022), TURP - Transurethral resection of prostate (08/27/2022), Transurethral insertion of prostatic urethral lift implant (05/05/2022), Cystoscopic removal of ureteric stent (08/20/2012), Cystoscopic ureteroneocystostomy with insertion 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 Discharge Vitals Temperature (Oral) 36.7 ???C Heart Rate (Peripheral) 82 Respiratory Rate 16 Blood Pressure 120/80 Height 178 cm Height 70 in Weight 89.2 kg Weight 196.652 lb BMI 28.15 What to do next Scheduled Follow-Up Appointments Thursday 3:30 PM EDT With: Where: [facility] Thursday 12:45 PM EDT With: Where: [facility] Thursday 11:00 AM EDT With: Pratima Reno PA-C Where: [facility] [address] [place] [place] [address]- You Need to Schedule the Following Appointments Follow Up with Diego RICKS, OUSMANE Bell, U[facility] When: Where: Someone Will Contact You Regarding These Appointments [facility] [place] Referral, Other Referral, IR at [facility] for BL neph tube placement, 02/23/25 13:39:00 EDT, Ureteral stricture Medications What How Much When Instructions Unchanged nitrofurantoin (Macrobid 100 mg Cap) 1 Capsules By Mouth 2 times a day take 1 cap morning of cath change and 12hrs after Unchanged oxybutynin (oxybutynin 10 mg ER Tab) 1 Tablets By Mouth Every day Unchanged aspirin (aspirin 81 mg Chew Tab) Chewed Every day Contact prescribing physician if questions or concerns Unchanged atorvastatin (atorvastatin 20 mg Tab) 1 Tablets By Mouth Every day Contact prescribing physician if questions or concerns Unchanged bifidobacterium-lactobacil huber (Probiotic + Colostrum) By Mouth Every day Contact prescribing physician if questions or concerns Unchanged cholecalciferol (Vitamin D3 2000 intl units) By Mouth Every day Contact prescribing physician if questions or concerns Unchanged cranberry (Cranberry) Contact prescribing physician if questions or concerns Unchanged cyanocobalamin (Vitamin B-12 100 mcg oral tablet) By Mouth Every day Contact prescribing physician if questions or concerns Unchanged docusate (Dulcolax Stool Softener) By Mouth Contact prescribing physician if questions or concerns [...] prescribing physician if questions or concerns Unchanged multivitamin with iron (Gentle Iron oral capsule) 1 Capsules By Mouth Every day Contact prescribing physician if questions or concerns Unchanged Non-Formulary Medication (D-mannose) Contact prescribing physician if questions or concerns Unchanged Non-Formulary Medication (iron) 25 Milligram Contact prescribing physician if questions or concerns Allergies Myrbetriq (Multiple open mouth wounds) gabapentin (Unknown, Rash) lisinopril (Unknown, DRY COUGH, Cough) Problems Ongoing - Any problem that you are currently receiving treatment for. Asymptomatic microscopic hematuria Bilateral hydronephros (more content not included)... Normal [facility] Urology Office/Clinic Noteon 02-23-2025 Urology Office/Clinic Note Urology Office/Clinic Note Chief Complaint 2 mth f/u HPI Staff 80 yr old male here for 2 mth f/u. Last cath change was 02/01/25. Dx: Recurrent UTIs, Non-compliant bladder *Gentamicin Sulfate 480mg/1 L of 0.9 NS* Urine cultures: 07/29/24 - 30k Enterococcus faecalis, Jessica albicans Presumptive 09/12/24 - 25k Staphylococcus aureus, 5k enterococcus faecalis 10/20/24 - >100k staphylococcus auerus, resistant to multiple ATB 11/11/24 - 20k jessica albicans 11/12/24 - >100k Jessica albicans 12/21/24 - 70k staph aureus, tx w/ doxycycline 100 mg BID x 10 days last cath change 02/22/25, urine culture sent and treatment is pending results History of Present Illness Tests reviewed: reviewed UCx and external labs. I have reviewed the previous health record information and history for this patient from Dr. Cortez I have reviewed and verified the staff [...] See HPI. Physical Exam Vitals & Measurements T: 36.7 ???C(Oral) HR: 82(Peripheral) RR: 16 BP: 120/80 HT: 70 in HT: 178 cm WT: 196.652 lb WT: 89.2 kg BMI: 28.15 General Appearance: alert, no distress, well nourished, well developed male. Cane. SPT to gravity Assessment/Plan 80 yo M with complex urologic history s/p urolift, TURP, incidental finding of fav intermediate risk prostate cancer on active surveillance, found to have right distal ureteral stricture, non-compliant small bladder with BL VUR, acute on chronic renal failure. He was referred to Dr. Jessica Feliciano for further evaluation regarding recommendations of SP tube, stent, definitive care which is more invasive (cystectomy). Hx of multiple myeloma s/p tx, currently in remission. Sees Dr. Huddleston - no contraindications to proceed with any treatments or interventions. THERESA N/A, pt inactive. Follows with nephro, Dr. Crain. Pt here with his today. 1. Ureteral stricture (N13.5: Crossing vessel and stricture of ureter without hydronephrosis) 10/14/22 - Crea 1.54. eGFR 44. (bond in place) [...] 21. K 4.4 (with stent and SPT) 05/19/23 - Cr 1.70. BUN 24. K 4.7. (with stent and SPT) 06/01/23 - Cr 2.18. BUN 31. K 4.4. (with stent and SPT) 01/21/24 - Cr 2.83. BUN 40. K 4.3. (with stent and SPT) [place] [facility] [place] to [place] and UTI 01/22/24 - Cr 2.58. BUN 31. K 4.1. (with stent and SPT) [place] [facility] [place] and UTI 06/08/24 - BUN 36, Cre 2.30, GFR 28 (with bilateral stents and SPT) 07/20/24 - Cre 6.20 08/01/24 - Cre 2.43 BMP 11/11/24 - Cr 3.58, eGFR 16 ANA 09/23/22 - Mild-mod bilateral hydroureteronephrosis. No mass or stones. CT AP wo con 10/02/22 - Mild-mod bilateral hydronephrosis and hydroureter without obstructing stone or mass. Non-obstructing calculi left kidney measuring 7 mm. Post Bond Renal US 10/14/22 neg for hydro. ANA 10/30/22 - Mild right pelvocaliectasis, neg for hydro. Pt refused bond/CIC at that time. Renal US 11/17/22 [facility] - R-sided hydronephrosis and proximal hydroureter. Findings have progressed since prior study. Cr 1.87/ eGFR 36.6 Cath placed 11/21/2022 ANA 12/01/22 - Right hydronephrosis, grossly similar to the prior study despite bond in place. S/P cysto/RG/ureteroscopy/sten t placement/RT ureteral dilation and stent placement 12/10/22. ANA 12/17/22 - Interval resolution of the right sided hydronephrosis since the prior US study. Referred to [facility] urologist for right distal stricture, small capacity bladder with BL VUR 12/19/22. Dr. Jessica Feliciano evaluation -offered Botox, right stent placement and SP tube with plans for bladder augmentation and reimplant if bladder were to increase in size substantially. Patient declined invasive definitive treatment. He elected to proceed with chronic indwelling right stent with routine exchanges q3m and SP tube q1m S/p Cysto/R ureteral stent removal/R RGP/R stent placement 03/05/23. 7f x 26cm stent. S/p Cysto/R RGP/Ureteral stent exchange/L ESWL/SPT exchanged 06/10/23. Cont q4m ANA 01/20/[place] [facility] [place] Bilateral mild pelvocaliectasis L>R. S/p cysto, R RPG, stent exchange, SP tube exchange, TP prostate bx, TRUS 06/01/24. Urology consult 06/03/24 due to moderat (more content not included)... Normal [facility] Comment on above: Result Comment: Elec tronically Signed By: Diego RICKS, Orquidea Taylor\.br\Date and Time Signed: 02/23/25 13:44 EDT\.br\Electronically Co-Signed By: Aleah Starr\.br\Date and Time Co-Signed: 02/23/25 13:38 EDT Ambulatory Visit Summaryon 0 02-22-2025 Ambulatory Visit Summary Ambulatory Visit Summary PATSY CUNNINGHAM :1945 Visit Date:02/22/2025 Ambulatory Visit Instructions Your Diagnosis UTI symptoms Urinary retention Your Care Team Attending Physician - Shadia COOPER, Pratima Primary Care Physician - DON RICKS, HELEN This Is Your Medications List Non-Formulary Medication (D-mannose) Non-Formulary Medication (iron) aspirin (aspirin 81 mg Chew Tab) atorvastatin (atorvastatin 20 mg Tab) bifidobacterium-lactobacil huber (Probiotic + Colostrum) cholecalciferol (Vitamin D3 2000 intl units) cranberry (Cranberry) cyanocobalamin (Vitamin B-12 100 mcg oral tablet) docusate (Dulcolax Stool Softener) famotidine (famotidine 20 mg Tab) insulin glargine (Lantus insulin) insulin lispro (Humalog) multivitamin with iron (Gentle Iron oral capsule) nitrofurantoin (Macrobid 100 mg Cap) oxybutynin (oxybutynin 10 mg ER Tab) Procedures Performed Change of suprapubic catheter (07/28/2024), Cystoscopic insertion of ureteric stent (06/04/2024), Transperineal needle biopsy of prostate (06/01/2024), Cystoscopic insertion of ureteric stent (02/03/2024), Cystoscopic replacement of ureteric stent (06/10/2023), ESWL [...] What to do next Scheduled Follow-Up Appointments 2024 1:00 PM EDT With: Diego RICKS, Orquidea Taylor Where: [facility] [address], [address] [place] [address]- Thursday 11:00 AM EDT With: Pratima Reno PA-C Where: [facility] [address] [place] [address] [place] [address]- Medications What How Much When Instructions Unchanged aspirin (aspirin 81 mg Chew Tab) Chewed Every day Unchanged atorvastatin (atorvastatin 20 mg Tab) 1 Tablets By Mouth Every day Unchanged bifidobacterium-lactobacil huber (Probiotic + Colostrum) By Mouth Every day Unchanged cholecalciferol (Vitamin D3 2000 intl units) By Mouth Every day Unchanged cranberry (Cranberry) Unchanged cyanocobalamin (Vitamin B-12 100 mcg oral tablet) By Mouth Every day Unchanged docusate (Dulcolax Stool Softener) By Mouth Unchanged famotidine (famotidine 20 mg Tab) 1 Tablets By Mouth Once a day (at bedtime) Unchanged insulin glargine (Lantus insulin) 25 Units Subcutaneous Once a day (at bedtime) Unchanged insulin lispro (Humalog) 8 Units Subcutaneous Unchanged multivitamin with iron (Gentle Iron oral capsule) 1 Capsules By Mouth Every day Unchanged nitrofurantoin (Macrobid 100 mg Cap) 1 Capsules By Mouth 2 times a day take 1 cap morning of cath change and 12hrs after Unchanged Non-Formulary Medication (D-mannose) Unchanged Non-Formulary Medication (iron) 25 Milligram Unchanged oxybutynin (oxybutynin 10 mg ER Tab) 1 Tablets By Mouth Every day Allergies Myrbetriq (Multiple open mouth wounds) gabapentin (Unknown, Rash) lisinopril (Unknown, DRY COUGH, Cough) Problems Ongoing - Any problem that you are currently receiving treatment for. Asymptomatic microscopic hematuria Bilateral hydronephrosis BPH with urinary obstruction Diabetes Dysuria Elevated cholesterol Family history of prostate cancer in father Glycosuria History of kidney stones HTN (hypertension) Hydroureter Hydroureteronephrosis Incomplete bladder emptying Kidney stones Microhematuria Multiple myeloma in remission Nocturia Noncompliant bladder OAB (overactive bladder) Prostate cancer Recurrent UTI Rheumatoid arthritis Ureteral stricture UTI (urinary tract infection) UTI symptoms Weak urine stream Patient Survey You may receive a survey via text or e-mail asking about your office visit. Please share your experience with us by completing your survey. We appreciate your feedback and thank you for choosing us for your care. Patient Portal You may access all of your results and other medical record information on our secure patient portal. If you are not signed up for this yet, please contact [employer] at [phone] to get signed up today. Language Information Language assistance services are available as needed. Normal [facility] Appearance of UrineOrdered B y: Brook Huddleston on 02-08-2025 Appearance (U) Turbid Critically abnormal Clear [facility] Comment on above: Order Comment: Name Collection Type:: Suprapubic Collection Performed By: #### C UU, ADDONUAPLUS ####[facility] [id number] [place] [address] [facility] Bacteria [Presence] in Urine by AutomatedOrdered By: Brook Huddleston on 02-08-2025 Bacteria Auto Ql (U) 2+ [HPF] High None Seen [facility] Bilirubin Test strip Ql (U)O rdered By: Brook Huddleston on 02-08-2025 Bilirubin Ql (U) Negative Negative [facility] Color of Urine by AutoOrdere d By: Brook Huddleston on 02-08-2025 Color (U) Light-orange Critically abnormal Yellow [facility] Comment on above: Order Comment: Name Collection Type:: Suprapubic Collection Performed By: #### C UU, ADDONUAPLUS ####[address] [address] [facility] Dipstick and Microscopicon 0 02-08-2025 Bacteria,Urine 2+ [HPF] Normal None Seen [facility] Comment on above: Order Comment: Name Collection Type:: Suprapubic Collection Performed By: #### C UU, ADDONUAPLUS ####[address] [address] [facility] Bilirubin,Urine Negative Normal Negative [facility] Comment on above: Order Comment: Name Collection Type:: Suprapubic Collection Performed By: #### C UU, ADDONUAPLUS ####[address] [address] [facility] Budding Yeast,Urine 4+ [HPF] Normal None Seen [facility] Comment on above: Order Comment: Name Collection Type:: Suprapubic Collection Result Comment: PERF ORMED BY:[address] [place] [id number] MEDICAL DIRECTORLUIS FELIPE MARSH M.D. Performed By: #### C UU, ADDONUAPLUS ####[address] [address] [facility] Glucose Ql (U) 100 mg/dL Normal Normal [facility] Comment on above: Order Comment: Name Collection Type:: Suprapubic Collection Performed By: #### C UU, ADDONUAPLUS ####[address] [address] [facility] Hyaline Casts,Urine None Normal 0-8 [facility] Comment on above: Order Comment: Name Collection Type:: Suprapubic Collection Performed By: #### C UU, ADDONUAPLUS ####[address] [address] [place] Nitrite,Urine Positive Normal Negative [facility] Comment on above: Order Comment: Name Collection Type:: Suprapubic Collection Performed By: #### C UU, ADDONUAPLUS ####[address] [address] [facility] Occult Blood,Urine 3+ Normal Negative [facility] Comment on above: Order Comment: Name Collection Type:: Suprapubic Collection Result Comment: PERF ORMED BY:[place] [address] [address] [place], [place] [phone] MEDICAL DIRECTORLUIS FELIPE MARSH M.D. Performed By: #### C UU, ADDONUAPLUS ####[address] RBC,Urine 50-100 Normal 0-4 [facility] Comment on above: Order Comment: Name Collection Type:: Suprapubic Collection Performed By: #### C UU, ADDONUAPLUS ####[address] Specificy [place],Urine 1.016 Normal 1.00 1-1.03 0 [facility] Comment on above: Order Comment: Name Collection Type:: Suprapubic Collection Performed By: #### C UU, ADDONUAPLUS ####[address] Urobilinogen,Urine Normal Normal Normal [facility] Comment on above: Order Comment: Name Collection Type:: Suprapubic Collection Performed By: #### C UU, ADDONUAPLUS ####[address] WBC [place], Urine Occasional Normal None Seen [facility] Comment on above: Order Comment: Name Collection Type:: Suprapubic Collection Performed By: #### C UU, ADDONUAPLUS ####[address] WBC,Urine Innumerable Normal 0-4 [facility] Comment on above: Order Comment: Name Collection Type:: Suprapubic Collection Performed By: #### C UU, ADDONUAPLUS ####[address] Epithelial cells.squamous [# /area] in Urine sediment by Automated countOrdered By: Brook Huddleston on 02-08-2025 Epithelial cells.squamous Auto (Urine sed) [#/Area] N/A [facility] Erythrocytes [#/area] in Uri ne sediment by Automated countOrdered By: Brook Huddleston on 02-08-2025 RBC Auto (Urine sed) [#/Area] 50-100 [HPF] High 0-4 [facility] Glucose [Mass/volume] in Uri ne by Test stripOrdered By: Brook Huddleston on 02-08-2025 Glucose Test strip (U) [Mass/Vol] 100 mg/dL High Normal [facility] Hemoglobin Test strip Ql (U) Ordered By: Brook Huddleston on 02-08-2025 Hemoglobin Ql (U) 3+ High Negative [facility] Hyaline casts [#/area] in Ur ine sediment by Automated countOrdered By: Brook Huddleston on 02-08-2025 Hyaline casts Auto (Urine sed) [#/Area] None [LPF] 0-8 [facility] Ketones [Presence] in Urine by Test stripOrdered By: Brook Huddleston on 02-08-2025 Ketones Ql (U) Negative Normal Negative [facility] Comment on above: Order Comment: Name Collection Type:: Suprapubic Collection Performed By: #### C UU, ADDONUAPLUS ####[facility] [id number] [place] [address] Leukocyte clumps [Presence] in Urine by AutomatedOrdered By: Brook Huddleston on 02-08-2025 Leukocyte clumps Auto Ql (U) Occasional [LPF] High None Seen [facility] Leukocyte esterase [Presence ] in Urine by Test stripOrdered By: Brook Huddleston on 02-08-2025 Leukocyte esterase Test strip Ql (U) 4+ Normal Negative [facility] Comment on above: Order Comment: Name Collection Type:: Suprapubic Collection Performed By: #### C UU, ADDONUAPLUS ####[address] Leukocytes [#/area] in Urine sediment by Automated countOrdered By: Brook Huddleston on 02-08-2025 WBC Auto (Urine sed) [#/Area] Innumerable [HPF] High 0-4 [facility] Nitrite Test strip Ql (U)Ord ered By: Brook Huddleston on 02-08-2025 Nitrite Ql (U) Positive High Negative [facility] Protein [Mass/volume] in Uri ne by Test stripOrdered By: Brook Huddleston on 02-08-2025 Protein (U) [Mass/Vol] 100 mg/dL Normal Negative [facility] Comment on above: Order Comment: Name Collection Type:: Suprapubic Collection Performed By: #### C UU, ADDONUAPLUS ####[facility] [id number] Specific gravity Test strip (U) [Rel density]Ordered By: Brook Huddleston on 02-08-2025 Specific gravity (U) [Rel density] 1.016 1.001-1.03 0 [facility] Urinalysis complete panel (U )on 02-08-2025 Appearance (U) Turbid Critically abnormal Clear [facility] BILIRUBIN,URINE Negative Negative [facility] Color (U) Light-Craven Critically abnormal Yellow [facility] Glucose Ql (U) 100 mg/dL Normal [facility] Interpretation and review of laboratory results Abnormal [facility] Ketones Ql (U) Negative Negative [facility] Leukocyte esterase Test strip Ql (U) 4+ Negative [facility] NITRITE,URINE Positive Negative [facility] OCCULT BLOOD,URINE 3+ Negative [facility] pH (U) 6.5 [pH] 5.0 - 9.0 [facility] Protein (U) [Mass/Vol] 100 mg/dL Negative [facility] SPECIFICY GRAVITY,URINE 1.016 1.00 1 - 1.030 [facility] UROBILINOGEN,URINE Normal Normal mg/dL [facility] Name Collection Type :: Suprapubic Collection [facility] Urine Cultureon 02-08-2025 Bacteria identified Cx Nom (U) Normal [facility] Comment on above: Performed By: #### C UU, ADDONUAPLUS ####[facility] [id number] [place] [id number] [facility] Urine cultureOrdered By: Brook Huddleston on 02-08-2025 Bacteria identified Cx Nom (U) Morganella morganii MDRO Abnormal [facility] Bacteria identified Cx Nom (U) Staphylococcus aureus Abnormal [facility] Urobilinogen Test strip (U) [Mass/Vol]Ordered By: Brook Huddleston on 02-08-2025 Urobilinogen (U) [Mass/Vol] Normal mg/dL Normal [facility] Yeast.budding [Presence] in Urine by Computer assisted methodOrdered By: Brook Huddleston on 02-08-2025 Yeast.budding Computer assisted Ql (U) 4+ [HPF] High None Seen [facility] pH of Urine by Test stripOrd ered By: Brook Huddleston on 02-08-2025 pH (U) 6.5 [pH] Normal 5.0-9.0 [facility] Comment on above: Order Comment: Name Collection Type:: Suprapubic Collection Performed By: #### C UU, ADDONUAPLUS ####[facility] [id number] [place] [address] [facility] Ambulatory Visit Summaryon 0 02-01-2025 Ambulatory Visit Summary Ambulatory Visit Summary PATSY CUNNINGHAM :1945 Visit Date:02/01/2025 Ambulatory Visit Instructions Your Care Team Attending Physician - Shadia COOPER, Pratima Primary Care Physician - HELEN HEATH MD This Is Your Medications List Non-Formulary Medication (D-mannose) Non-Formulary Medication (iron) aspirin (aspirin 81 mg Chew Tab) atorvastatin (atorvastatin 20 mg Tab) bifidobacterium-lactobacil huber (Probiotic + Colostrum) cholecalciferol (Vitamin D3 2000 intl units) cranberry (Cranberry) cyanocobalamin (Vitamin B-12 100 mcg oral tablet) docusate (Dulcolax Stool Softener) famotidine (famotidine 20 mg Tab) insulin glargine (Lantus insulin) insulin lispro (Humalog) multivitamin with iron (Gentle Iron oral capsule) nitrofurantoin (Macrobid 100 mg Cap) oxybutynin (oxybutynin 10 mg ER Tab) Procedures Performed Change of suprapubic catheter (07/28/2024), Cystoscopic insertion of ureteric stent (06/04/2024), Transperineal needle biopsy of prostate (06/01/2024), Cystoscopic insertion of ureteric stent (02/03/2024), Cystoscopic replacement of ureteric stent (06/10/2023), ESWL [...] What to do next Scheduled Follow-Up Appointments 2024 1:00 PM EDT With: Diego RICKS, Orquidea Taylor Where: [facility] [address], [address] [place] [id number]- Medications What How Much When Instructions Unchanged aspirin (aspirin 81 mg Chew Tab) Chewed Every day Unchanged atorvastatin (atorvastatin 20 mg Tab) 1 Tablets By Mouth Every day Unchanged bifidobacterium-lactobacil huber (Probiotic + Colostrum) By Mouth Every day Unchanged cholecalciferol (Vitamin D3 2000 intl units) By Mouth Every day Unchanged cranberry (Cranberry) Unchanged cyanocobalamin (Vitamin B-12 100 mcg oral tablet) By Mouth Every day Unchanged docusate (Dulcolax Stool Softener) By Mouth Unchanged famotidine (famotidine 20 mg Tab) 1 Tablets By Mouth Once a day (at bedtime) Unchanged insulin glargine (Lantus insulin) 25 Units Subcutaneous Once a day (at bedtime) Unchanged insulin lispro (Humalog) 8 Units Subcutaneous Unchanged multivitamin with iron (Gentle Iron oral capsule) 1 Capsules By Mouth Every day Unchanged nitrofurantoin (Macrobid 100 mg Cap) 1 Capsules By Mouth 2 times a day take 1 cap morning of cath change and 12hrs after Unchanged Non-Formulary Medication (D-mannose) Unchanged Non-Formulary Medication (iron) 25 Milligram Unchanged oxybutynin (oxybutynin 10 mg ER Tab) 1 Tablets By Mouth Every day Allergies Myrbetriq (Multiple open mouth wounds) gabapentin (Unknown, Rash) lisinopril (Unknown, DRY COUGH, Cough) Problems Ongoing - Any problem that you are currently receiving treatment for. Asymptomatic microscopic hematuria Bilateral hydronephrosis BPH with urinary obstruction Diabetes Dysuria Elevated cholesterol Family history of prostate cancer in father Glycosuria History of kidney stones HTN (hypertension) Hydroureter Hydroureteronephrosis Incomplete bladder emptying Kidney stones Microhematuria Multiple myeloma in remission Nocturia Noncompliant bladder OAB (overactive bladder) Prostate cancer Recurrent UTI Rheumatoid arthritis Ureteral stricture UTI (urinary tract infection) UTI symptoms Weak urine stream Patient Survey You may receive a survey via text or e-mail asking about your office visit. Please share your experience with us by completing your survey. We appreciate your feedback and thank you for choosing us for your care. Normal [facility] Alanine aminotransferase [En zymatic activity/volume] in Serum or PlasmaOrdered By: Brook Huddleston on 01-30-2025 ALT [Catalytic activity/Vol] 13 U/L Normal 7-52 [facility] Comment on above: Performed By: #### C MP, CBC ####[facility] [id number]#### JOSE C SERUM, SPE, KAPPA ####[facility] , Albumin [Mass/volume] in Ser um or Plasma by Bromocresol green (BCG) dye binding methoOrdered By: Brook Huddleston on 01-30-2025 Albumin BCG dye [Mass/Vol] 3.8 g/dL 3.5-5.7 [facility] Alkaline phosphatase [Enzyma tic activity/volume] in Serum or PlasmaOrdered By: Brook Huddleston on 01-30-2025 ALP [Catalytic activity/Vol] 110 U/L High 34-104 [facility] Comment on above: Performed By: #### C MP, CBC ####[facility] [id number] [place] [address] [place]#### JOSE C SERUM, SPE, KAPPA ####[facility] , Aspartate aminotransferase [ Enzymatic activity/volume] in Serum or PlasmaOrdered By: Brook Huddleston on 01-30-2025 AST [Catalytic activity/Vol] 15 U/L Normal 13-39 [facility] Comment on above: Performed By: #### C MP, CBC ####[address]#### JOSE C SERUM, SPE, KAPPA ####[facility] , Basophils [#/volume] in Bloo d by Automated countOrdered By: Brook Huddleston on 01-30-2025 Basophils (Bld) [#/Vol] 0.0 10*3/uL Normal 0.0-0.2 [facility] Comment on above: Result Comment: PERF ORMED BY:[address] [place], [place] [phone] MEDICAL DIRECTORLUIS FELIPE MARSH M.D. Performed By: #### C MP, CBC ####[address]#### JOSE C SERUM, SPE, KAPPA ####[facility] , Basophils/100 leukocytes in Blood by Automated countOrdered By: Brook Huddleston on 01-30-2025 Basophils/100 WBC (Bld) 0.2 % Normal . [facility] Comment on above: Performed By: #### C MP, CBC ####[address]#### JOSE C SERUM, SPE, KAPPA ####[facility] , Bilirubin.total [Mass/volume ] in Serum or PlasmaOrdered By: Brook Huddleston on 01-30-2025 Bilirubin [Mass/Vol] 0.5 mg/dL Normal 0.3-1.0 [facility] Comment on above: Performed By: #### C MP, CBC ####[place] [address] [place]#### JOSE C SERUM, SPE, KAPPA ####[facility] , CBC W Auto Differential pane l (Bld)on 01-30-2025 Basophils (Bld) [#/Vol] 0 10*3/uL 0.0 - 0.2 10*3/uL [facility] Basophils/100 WBC Manual cnt (Syn fld) 0.2 % . [facility] Eosinophils (Bld) [#/Vol] 0.3 10*3/uL 0.0 - 0.45 10*3/uL [facility] Eosinophils/100 WBC Manual cnt (Syn fld) 4.8 % . [facility] Erythrocyte distribution width (RBC) [Ratio] 16.2 % High 12.0 - 14.8 % [facility] Hematocrit (Bld) [Volume fraction] 30 % Low 38.8 - 50.0 % [facility] Hemoglobin (Bld) [Mass/Vol] 10.1 g/dL Low 13.0 - 17.0 g/dL [facility] Interpretation and review of laboratory results Abnormal [facility] Lymphocytes (Bld) [#/Vol] 1 10*3/uL 1.00 - 4.8 10*3/uL [facility] Lymphocytes/100 WBC Manual cnt (Syn fld) 14.3 % . [facility] MCH (RBC) [Entitic mass] 34.8 pg 27.5 - 35.2 pg [facility] MCHC (RBC) [Mass/Vol] 33.8 g/dL 32.5 - 35.6 g/dL [facility] MCV (RBC) [Entitic vol] 102.9 fL High 83.5 - 101 fL [facility] Monocytes (Bld) [#/Vol] 0.5 10*3/uL 0.0 - 0.8 10*3/uL [facility] Monocytes+Macrophages/1 00 WBC Manual cnt (Syn fld) 6.8 % . [facility] Neutrophils (Bld) [#/Vol] 5.1 10*3/uL 1.8 - 7.7 10*3/uL [facility] Neutrophils/100 WBC Manual cnt (Syn fld) 73.9 % . [facility] NRBC 0 /100{WBC} 0 - 0.5 /100{WBC} [facility] Platelet mean volume (Bld) [Entitic vol] 7.6 fL 6.6 - 10.1 fL [facility] Platelets (Bld) [#/Vol] 212 10*3/uL 150 - 450 10*3/uL [facility] RBC LM.HPF (Urine sed) [#/Area] 2.91 10*6/uL Low 3.90 - 5.60 10*6/uL [facility] WBC (Bld) [#/Vol] 6.9 10*3/uL 4.1 - 10.5 10*3/uL [facility] WBC LM.HPF (Urine sed) [#/Area] 6.9 10*3/uL 4.1 - 10.5 10*3/uL [facility] Calcium [Mass/volume] in Ser um or PlasmaOrdered By: Brook Huddleston on 01-30-2025 Calcium [Mass/Vol] 8.6 mg/dL Normal 8.6-10.3 [facility] Comment on above: Performed By: #### C MP, CBC ####[address] [place] [address] [place]#### JOSE C SERUM, SPE, KAPPA ####[facility] , Carbon dioxide, total [Moles /volume] in Serum or PlasmaOrdered By: Brook Huddleston on 01-30-2025 CO2 [Moles/Vol] 24.7 mmol/L Normal 21.0-31.0 [facility] Comment on above: Performed By: #### C MP, CBC ####[address] [place] [address] [place]#### JOSE C SERUM, SPE, KAPPA ####[facility] , Chloride [Moles/volume] in S valeria or PlasmaOrdered By: Brook Huddleston on 01-30-2025 Chloride [Moles/Vol] 106 mmol/L Normal 98-107 [facility] Comment on above: Performed By: #### C MP, CBC ####[address] [place] [address] [place]#### JOSE C SERUM, SPE, KAPPA ####[facility] , Complete Blood Count Auto Di ffon 01-30-2025 Mean Corpuscular HGB Conc 33.8 g/dL Normal 32.5-35.6 [facility] Comment on above: Performed By: #### C MP, CBC ####[facility] [address]#### JOSE C SERUM, SPE, KAPPA ####[facility] , NRBC% 0.0 /100{WBC} Normal 0-0.5 [facility] Comment on above: Performed By: #### C MP, CBC ####[address]#### JOSE C SERUM, SPE, KAPPA ####[facility] , Comprehensive Metabolic Pane [facility] 01-30-2025 Albumin [Mass/Vol] 3.8 g/dL Normal 3.5-5.7 [facility] Comment on above: Performed By: #### C MP, CBC ####[address]#### JOSE C SERUM, SPE, KAPPA ####[facility] , Creatinine Clr Calc Pharmacy 33.89 Normal [facility] Comment on above: Result Comment: PERF ORMED BY:[address] [place], [place] [phone] MEDICAL DIRECTORLUIS FELIPE MARSH M.D. Performed By: #### C MP, CBC ####[address]#### JOSE C SERUM, SPE, KAPPA ####[facility] , Estimated GFR 31.977 mL/Min Normal [facility] Comment on above: Performed By: #### C MP, CBC ####[place] [address] [place]#### JOSE C SERUM, SPE, KAPPA ####[facility] , Comprehensive metabolic pane [facility] 01-30-2025 Albumin [Mass/Vol] 3.8 g/dL 3.5 - 5.7 g/dL [facility] Albumin/Globulin [Mass ratio] 1.4 {ratio} [facility] ALP [Catalytic activity/Vol] 110 U/L High 34 - 104 U/L [facility] ALT [Catalytic activity/Vol] 13 U/L 7 - 52 U/L [facility] Anion gap [Moles/Vol] 9.5 mmol/L 6.0 - 15.0 meq/L [facility] AST [Catalytic activity/Vol] 15 U/L 13 - 39 U/L [facility] Bilirubin [Mass/Vol] 0.5 mg/dL 0.3 - 1 .0 mg/dL [facility] Calcium [Mass/Vol] 8.6 mg/dL 8.6 - 10. 3 mg/dL [facility] Chloride [Moles/Vol] 106 mmol/L 98 - 10 7 mmol/L [facility] CO2 [Moles/Vol] 24.7 mmol/L 21.0 - 31.0 mmol/L [facility] Creatinine (U) [Mass/Vol] 2.07 mg/dL High 0.70 - 1.30 mg/dL [facility] CREATININE CLR CALC PHARMACY 33.89 [facility] GFR/1.73 sq M.predicted MDRD (S/P/Bld) [Vol rate/Area] 31.977 mL/min/{1.73_m2} mL/Min [facility] Globulin (S) [Mass/Vol] 2.7 g/dL N [facility] Glucose [Mass/Vol] 109 mg/dL High 70 - 100 mg/dL [facility] Comment on above: Random Glucose Refer ence Range is dependent on time and content of last meal. Glucose of more than 200 mg/dL in a nonstressed, ambulatory subject supports the diagnosis of Diabetes Mellitus. ADA recommended reference range Interpretation and review of laboratory results Abnormal [facility] Potassium [Moles/Vol] 4.2 mmol/L 3.5 - 5.1 mmol/L [facility] Protein [Mass/Vol] 6.5 g/dL 6.4 - 8.9 g/dL [facility] Sodium [Moles/Vol] 136 mmol/L 136 - 145 mmol/L [facility] Urea nitrogen [Mass/Vol] 23 mg/dL 7 - 25 mg/dL [facility] Creatinine [Mass/volume] in Serum or PlasmaOrdered By: Brook Huddleston on 01-30-2025 Creatinine [Mass/Vol] 2.07 mg/dL High 0.70-1.30 [facility] Comment on above: Performed By: #### C MP, CBC ####[place] [address] [place]#### JOSE C SERUM, SPE, KAPPA ####[facility] , Eosinophils [#/volume] in Bl ood by Automated countOrdered By: Brook Flaquito on 01-30-2025 Eosinophils (Bld) [#/Vol] 0.3 10*3/uL Normal 0.0-0.45 [facility] Comment on above: Performed By: #### C MP, CBC ####[place] [address] [place]#### JOSE C SERUM, SPE, KAPPA ####[facility] , Eosinophils/100 leukocytes i n Blood by Automated countOrdered By: Brook Huddleston on 01-30-2025 Eosinophils/100 WBC (Bld) 4.8 % Normal . [facility] Comment on above: Performed By: #### C MP, CBC ####[place] [address] [place]#### JOSE C SERUM, SPE, KAPPA ####[facility] , Erythrocyte distribution wid th [Ratio] by Automated countOrdered By: Brook Huddleston on 01-30-2025 Erythrocyte distribution width (RBC) [Ratio] 16.2 % High 12.0-14.8 [facility] Comment on above: Performed By: #### C MP, CBC ####[place] [address] [place]#### JOSE C SERUM, SPE, KAPPA ####[facility] , Erythrocytes [#/volume] in B lood by Automated countOrdered By: Brook Huddleston on 01-30-2025 RBC (Bld) [#/Vol] 2.91 10*6/uL Low 3.90-5.60 [facility] Comment on above: Performed By: #### C MP, CBC ####[place] [address] [place]#### JOSE C SERUM, SPE, KAPPA ####[facility] , Free K+L LT Chains, Qn, Son 01-30-2025 Free [place] Light Chains, S 43.3 mg/L Normal 3.3-19.4 [facility] Comment on above: Performed By: #### C MP, CBC ####[facility] [address]#### JOSE C SERUM, SPE, KAPPA ####[facility] , Free Lambda Light Chains, S 33.1 mg/L Normal 5.7-26.3 [facility] Comment on above: Performed By: #### C MP, CBC ####[facility] [place] [address] [place]#### JOSE C SERUM, SPE, KAPPA ####[facility] , [place]/Lambda Ratio, S 1.31 Normal 0.26-1.65 [facility] Comment on above: Result Comment: Perf ormed at: - [facility] [address] [id number] Orthotic/Prosthetic Practitioner: Melchor Agrawal PhD, Phone: [phone] BY:[address] [place], [place] [phone] MEDICAL DIRECTORLUIS FELIPE MARSH M.D. Performed By: #### C MP, CBC ####[facility] [address]#### JOSE C SERUM, SPE, KAPPA ####[facility] , Glucose [Mass/volume] in Ser um or PlasmaOrdered By: Brook Huddleston on 01-30-2025 Glucose [Mass/Vol] 109 mg/dL High 70-100 [facility] Comment on above: ADA recommended refe rence rangeRandom Glucose Reference Range is dependent on time and content of last meal. Glucose of more than 200 mg/dL in a nonstressed, ambulatory subject supports the diagnosis of Diabetes Mellitus. Result Comment: Ignacio om Glucose Reference Range is dependent on time and content of last meal. Glucose of more than 200 mg/dL in a nonstressed, ambulatory subject supports the diagnosis of Diabetes Mellitus. ADA recommended reference range Performed By: #### C MP, CBC ####[facility] [place] [address] [place]#### JOSE C SERUM, SPE, KAPPA ####[facility] , Hematocrit [Volume Fraction] of Blood by Automated countOrdered By: Brook Huddleston on 01-30-2025 Hematocrit (Bld) [Volume fraction] 30.0 % Low 38.8-50.0 [facility] Comment on above: Performed By: #### C MP, CBC ####[place] [address] [place]#### JOSE C SERUM, SPE, KAPPA ####[facility] , Hemoglobin [Mass/volume] in BloodOrdered By: Brook Flaquito on 01-30-2025 Hemoglobin (Bld) [Mass/Vol] 10.1 g/dL Low 13.0-17.0 [facility] Comment on above: Performed By: #### C MP, CBC ####[address]#### JOSE C SERUM, SPE, KAPPA ####[facility] , Immunofixation,Serumon 01-30 Immunofixation, Serum Comment Critically abnormal . [facility] Comment on above: Result Comment: Immu nofixation shows IgG monoclonal protein with kappa light chain specificity. PLEASE NOTE: Samples from patients receiving DARZALEX(R) (daratumumab) or SARCLISA(R)(isatuximab-irfc) treatment can appear as an IgG kappa and mask a complete response (CR). If this patient is receiving these therapies, this JOSE C assay interference can be removed by ordering test number [id number]- Immunofixation, Daratumumab-Specific, Serum or [id number]- Immunofixation, Isatuximab-Specific, Serum and submitting a new sample for testing or by calling the lab to add this test to the current sample. Lambda appears asymmetrical. Performed By: #### C MP, CBC ####[place] [id number] [place]#### JOSE C SERUM, SPE, KAPPA ####[facility] , Immunoglobulin A, Serum 221 mg/dL Normal 61-437 [facility] Comment on above: Performed By: #### C MP, CBC ####[facility] [address]#### JOSE C SERUM, SPE, KAPPA ####[facility] , Immunoglobulin G 1146 mg/dL Normal 603-1613 [facility] Comment on above: Performed By: #### C MP, CBC ####[place] [address]#### JOSE C SERUM, SPE, KAPPA ####[facility] , Immunoglobulin M, Serum 53 mg/dL Normal 15-143 [facility] Comment on above: Result Comment: Perf ormed at: - [facility] [place] [id number] Orthotic/Prosthetic Practitioner: Melchor Agrawal PhD, Phone: [phone] Performed By: #### C MP, CBC ####[place] [address]#### JOSE C SERUM, SPE, KAPPA ####[facility] , Leukocytes [#/volume] correc lizbet for nucleated erythrocytes in Blood by Automated counOrdered By: Brook Huddleston on 01-30-2025 WBC corrected for nucl RBC Auto (Bld) [#/Vol] 6.9 10*3/uL 4.1-10.5 [facility] Leukocytes [#/volume] in Blo od by Automated countOrdered By: Brook Huddleston on 01-30-2025 WBC (Bld) [#/Vol] 6.9 10*3/uL Normal 4.1-10.5 [facility] Comment on above: Performed By: #### C MP, CBC ####[address] [place] [address] [place]#### JOSE C SERUM, SPE, KAPPA ####[facility] , Lymphocytes [#/volume] in Bl ood by Automated countOrdered By: Brook Flaquito on 01-30-2025 Lymphocytes (Bld) [#/Vol] 1.0 10*3/uL Normal 1.00-4.8 [facility] [facility] Comment on above: Performed By: #### C MP, CBC ####[address]#### JOSE C SERUM, SPE, KAPPA ####[facility] , Lymphocytes/100 leukocytes i n Blood by Automated countOrdered By: Brook Huddleston on 01-30-2025 Lymphocytes/100 WBC (Bld) 14.3 % Normal . [facility] Comment on above: Performed By: #### C MP, CBC ####[address]#### JOSE C SERUM, SPE, KAPPA ####[facility] , MCH [Entitic mass] by Automa lizbet countOrdered By: Brook Huddleston on 01-30-2025 MCH (RBC) [Entitic mass] 34.8 pg Normal 27.5-35.2 [facility] Comment on above: Performed By: #### C MP, CBC ####[place] [address] [place]#### JOSE C SERUM, SPE, KAPPA ####[facility] , MCHC Auto (RBC) [Mass/Vol]Or dered By: Brook Huddleston on 01-30-2025 MCHC (RBC) [Mass/Vol] 33.8 g/dL 32.5-35.6 [facility] MCV [Entitic volume] by Auto mated countOrdered By: Brook Huddleston on 01-30-2025 MCV (RBC) [Entitic vol] 102.9 fL High 83.5-101 F [facility] Comment on above: Performed By: #### C MP, CBC ####[place] [address] [place]#### JOSE C SERUM, SPE, KAPPA ####[facility] , Monocytes [#/volume] in Bloo d by Automated countOrdered By: Brook Flaquito on 01-30-2025 Monocytes (Bld) [#/Vol] 0.5 10*3/uL Normal 0.0-0.8 [facility] Comment on above: Performed By: #### C MP, CBC ####[place] [address] [place]#### JOSE C SERUM, SPE, KAPPA ####[facility] , Monocytes/100 leukocytes in Blood by Automated countOrdered By: Brook Huddleston on 01-30-2025 Monocytes/100 WBC (Bld) 6.8 % Normal . [facility] Comment on above: Performed By: #### C MP, CBC ####[place] [address] [place]#### JOSE C SERUM, SPE, KAPPA ####[facility] , Neutrophils [#/volume] in Bl ood by Automated countOrdered By: Brook Huddleston on 01-30-2025 Neutrophils (Bld) [#/Vol] 5.1 10*3/uL Normal 1.8-7.7 [facility] Comment on above: Performed By: #### C MP, CBC ####[place] [address] [place]#### JOSE C SERUM, SPE, KAPPA ####[facility] , Neutrophils/100 leukocytes i n Blood by Automated countOrdered By: Brook Huddleston on 01-30-2025 Neutrophils/100 WBC (Bld) 73.9 % Normal . [facility] Comment on above: Performed By: #### C MP, CBC ####[place] [address] [place]#### JOSE C SERUM, SPE, KAPPA ####[facility] , No Panel InformationOrdered By: Brook Huddleston on 01-30-2025 Estimated GFR (CKD-EPI) 31.977 mL/Min [facility] Creatinine Clearance (Chem 33.89 [facility] Protein Electrophoresis M-Anselmo Comment: g/dL Not Observed [facility] Comment on above: SPE shows asymmetric al gamma. Suggest serum JOSE C and free lightchain analysis for further evaluation. Protein Electrophoresis Note Comment . [facility] Comment on above: Protein electrophore sis scan will follow via computer,mail, or revenue stamp cutter delivery.Performed at: [place] [id number] Director: Melchor Agrawal PhD, Phone: [phone] 31.977 mL/Min [facility] 33.89 [facility] Comment: g/dL Not Observed [facility] Comment . [facility] Nucleated erythrocytes [Pres ence] in Blood by Automated countOrdered By: Brook Huddleston on 01-30-2025 Nucleated RBC Auto Ql (Bld) 0.0 /100{WBC} 0-0.5 [facility] Platelet mean volume [Entiti c volume] in Blood by Automated countOrdered By: Brook Huddleston on 01-30-2025 Platelet mean volume (Bld) [Entitic vol] 7.6 fL Normal 6.6-10.1 [facility] Comment on above: Performed By: #### C MP, CBC ####[facility] [id number]#### JOSE C SERUM, SPE, KAPPA ####[facility] , Platelets [#/volume] in Bloo d by Automated countOrdered By: Brook Huddleston on 01-30-2025 Platelets (Bld) [#/Vol] 212 10*3/uL Normal 150-450 [facility] Comment on above: Performed By: #### C MP, CBC ####[facility] [id number] [place] [address] [place]#### JOSE C SERUM, SPE, KAPPA ####[facility] , Potassium [Moles/volume] in Serum or PlasmaOrdered By: Brook Huddleston on 01-30-2025 Potassium [Moles/Vol] 4.2 mmol/L Normal 3.5-5.1 [facility] Comment on above: Performed By: #### C MP, CBC ####[place] [address] [place]#### JOSE C SERUM, SPE, KAPPA ####[facility] , Protein Electrophoresis, Ser umon 01-30-2025 Phnux-0-Cdtovuwt 0.3 g/dL Normal 0.0-0.4 [facility] Comment on above: Performed By: #### C MP, CBC ####[place] [address] [place]#### JOSE C SERUM, SPE, KAPPA ####[facility] , Dwcjz-4-Sqjgebzh 0.8 g/dL Normal 0.4-1.0 [facility] Comment on above: Performed By: #### C MP, CBC ####[address]#### JOSE C SERUM, SPE, KAPPA ####[facility] , Beta Globulin 0.9 g/dL Normal 0.7-1.3 [facility] Comment on above: Performed By: #### C MP, CBC ####[place] [address] [place]#### JOSE C SERUM, SPE, KAPPA ####[facility] , Gamma Globulin 1.0 g/dL Normal 0.4-1.8 [facility] Comment on above: Performed By: #### C MP, CBC ####[place] [address] [place]#### JOSE C SERUM, SPE, KAPPA ####[facility] , M-Anselmo Comment: Normal Not Observed [facility] Comment on above: Result Comment: SPE shows asymmetrical gamma. Suggest serum JOSE C and free light chain analysis for further evaluation. Performed By: #### C MP, CBC ####[place] [address] [place]#### JOSE C SERUM, SPE, KAPPA ####[facility] , SPE-Note Comment Normal . [facility] Comment on above: Result Comment: Prot ein electrophoresis scan will follow via computer, mail, or revenue stamp cutter delivery. Performed at: [address] [id number] Orthotic/Prosthetic Practitioner: Melchor Agrawal PhD, Phone: [phone] Performed By: #### C MP, CBC ####[place] [id number] [place] [address] [place]#### JOSE C SERUM, SPE, KAPPA ####[facility] , Protein [Mass/volume] in Ser um or PlasmaOrdered By: Brook Huddleston on 01-30-2025 Protein [Mass/Vol] 6.5 g/dL Normal 6.0-8.5 [facility] Comment on above: Performed By: #### C MP, CBC ####[place] [address] [place]#### JOSE C SERUM, SPE, KAPPA ####[facility] , Serum free kappa light chain measurementOrdered By: Brook Huddleston on 01-30-2025 Immunoglobulin light chains.kappa.free (S) [Mass/Vol] 43.3 mg/L High 3.3-19.4 [facility] Serum globulin measurement ( mass/volume)Ordered By: Brook Huddleston on 01-30-2025 Globulin (S) [Mass/Vol] 3.1 g/dL Normal 2.2-3.[address] [facility] Comment on above: Performed By: #### C MP, CBC ####[place] [address] [place]#### JOSE C SERUM, SPE, KAPPA ####[facility] , Serum globulin measurement b y calculation (mass/volume)Ordered By: Brook Huddleston on 01-30-2025 Globulin (S) [Mass/Vol] 2.7 g/dL Normal F [facility] Comment on above: Performed By: #### C MP, CBC ####[place] [address] [place]#### JOSE C SERUM, SPE, KAPPA ####[facility] , Serum immunoglobulin free ka ppa light chains/immunoglobulin free lambda light chainsOrdered By: Brook Huddleston on 01-30-2025 Immunoglobulin light chains.kappa.free/Immun oglobulin light chains.lambda.free (S) [Mass ratio] 1.31 0.26-1.65 [facility] Comment on above: Performed at: [facility] [address] [id number] Director: Melchor Agrawal PhD, Phone: [phone] Serum or plasma IgA measurem ent (mass/volume)Ordered By: Brook Huddleston on 01-30-2025 IgA [Mass/Vol] 221 mg/dL 61-437 [facility] Serum or plasma IgG measurem ent (mass/volume)Ordered By: Brook Huddleston on 01-30-2025 IgG [Mass/Vol] 1146 mg/dL 603-1613 [facility] Serum or plasma IgM measurem ent (mass/volume)Ordered By: Brook Huddleston on 01-30-2025 IgM [Mass/Vol] 53 mg/dL 15-143 [facility] Comment on above: Performed at: [facility] [address] [id number] Director: Melchor Agrawal PhD, Phone: [phone] Serum or plasma albumin reese urement (mass/volume)Ordered By: Brook Huddleston on 01-30-2025 Albumin [Mass/Vol] 3.4 g/dL Normal 2.9-4.4 [facility] Comment on above: Performed By: #### C MP, CBC ####[facility] [id number]#### JOSE C SERUM, SPE, KAPPA ####[facility] , Serum or plasma albumin/glob ulin mass ratioOrdered By: Brook Huddleston on 01-30-2025 Albumin/Globulin [Mass ratio] 1.4 {ratio} Normal [facility] Comment on above: Performed By: #### C MP, CBC ####[facility] [id number]#### JOSE C SERUM, SPE, KAPPA ####[facility] , Albumin/Globulin [Mass ratio] 1.1 {ratio} Normal 0.7-1.7 [facility] Comment on above: Performed By: #### C MP, CBC ####[facility] [address]#### JOSE C SERUM, SPE, KAPPA ####[facility] , Serum or plasma alpha 1 glob ulin measurement by electrophoresis (mass/volume)Ordered By: Brook Huddleston on 01-30-2025 Alpha 1 globulin Elph [Mass/Vol] 0.3 g/dL 0.0-0.4 [facility] Serum or plasma alpha 2 glob ulin measurement by electrophoresis (mass/volume)Ordered By: Brook Huddleston on 01-30-2025 Alpha 2 globulin Elph [Mass/Vol] 0.8 g/dL 0.4-1.0 [facility] Serum or plasma anion gap de terminationOrdered By: Brook Huddleston on 01-30-2025 Anion gap [Moles/Vol] 9.5 mmol/L Normal 6.0-15.0 [facility] Comment on above: Performed By: #### C MP, CBC ####[facility] [address]#### JOSE C SERUM, SPE, KAPPA ####[facility] , Serum or plasma beta globuli n measurement by electrophoresis (mass/volume)Ordered By: Brook Huddleston on 01-30-2025 Beta globulin Elph [Mass/Vol] 0.9 g/dL 0.7-1.3 [facility] Serum or plasma gamma globul in measurement by electrophoresis (mass/volume)Ordered By: Brook Huddleston on 01-30-2025 Gamma globulin Elph [Mass/Vol] 1.0 g/dL 0.4-1.8 [facility] Serum or plasma immunoglobul in free lambda light chains measurement (mass/volume)Ordered By: Brook Huddleston on 01-30-2025 Immunoglobulin light chains.lambda.free [Mass/Vol] 33.1 mg/L High 5.7-26.3 [facility] Sodium [Moles/volume] in Ser um or PlasmaOrdered By: Brook Flaquito on 01-30-2025 Sodium [Moles/Vol] 136 mmol/L Normal 136-145 [facility] Comment on above: Performed By: #### C MP, CBC ####[facility] [id number] [place] [id number] [facility]#### JOSE C SERUM, SPE, KAPPA ####[facility] , Urea nitrogen [Mass/volume] in Serum or PlasmaOrdered By: Brook Huddleston on 01-30-2025 Urea nitrogen [Mass/Vol] 23 mg/dL Normal 7-25 [facility] Comment on above: Performed By: #### C MP, CBC ####[facility] Lay[address]#### JOSE C SERUM, SPE, KAPPA ####[facility] , C Urineon 01-14-2025 Bacteria identified Cx Nom (U) Microbiology PROCEDURE: Urine Culture [R1] SOURCE: U Cath BODY SITE: COLLECTED DATE/TIME: 01/11/2025 12:05 EDT RECEIVED DATE/TIME: 01/11/2025 17:40 EDT START DATE/TIME: 01/11/2025 17:40 EDT FREE TEXT SOURCE: halle Reno PA-C, Pratima Reno PA-C, Pratima FINAL REPORTS Final Report [] Verified Date/Time: 01/14/2025 08:40 EDT 1,000 cfu/ml Enterococcus faecalis 15,000 cfu/ml Jessica albicans Presumptive SUSCEPTIBILITY RESULTS _ LEGEND: S=Susceptible, N/R=Not Reported, Blank=Data not available, or drug not advisable or tested, I=Intermediate, ESBL=Extended spectrum beta-lactamase, R=Resistant, TFG=Thymidine-dependent strain, RADHA=Beta-lactamase positive, DEEPA=mcg/m;(mg/L), S*=Predicted susceptible interp, R*=Predicted resistant interp Entfaeca Antibiotic DEEPA Dilutn DEEPA Interp Ampicillin <=2 S Ciprofloxacin <=1 S Daptomycin <=1 S Levofloxacin <=1 S Linezolid <=2 S Nitrofurantoin <=32 S Penicillin 2 S Tetracycline >8 R Vancomycin 1 S Performing Locations R1: This test was performed at: [facility], [address] [place] [address], [facility]- , , Normal [facility] Comment on above: Performed By: #### [id number] #### [facility] [address] [place] [address] Ambulatory Visit Summaryon 0 01-11-2025 Ambulatory Visit Summary Ambulatory Visit Summary PATSY CUNNINGHAM :1945 Visit Date:01/11/2025 Ambulatory Visit Instructions Your Diagnosis Recurrent UTI Noncompliant bladder Your Care Team Attending Physician - Shadia COOPER, Pratima Primary Care Physician - HELEN HEATH MD This Is Your Medications List Non-Formulary Medication (D-mannose) Non-Formulary Medication (iron) aspirin (aspirin 81 mg Chew Tab) atorvastatin (atorvastatin 20 mg Tab) bifidobacterium-lactobacil huber (Probiotic + Colostrum) cholecalciferol (Vitamin D3 2000 intl units) cranberry (Cranberry) cyanocobalamin (Vitamin B-12 100 mcg oral tablet) docusate (Dulcolax Stool Softener) famotidine (famotidine 20 mg Tab) insulin glargine (Lantus insulin) insulin lispro (Humalog) multivitamin with iron (Gentle Iron oral capsule) nitrofurantoin (Macrobid 100 mg Cap) oxybutynin (oxybutynin 10 mg ER Tab) Procedures Performed Change of suprapubic catheter (07/28/2024), Cystoscopic insertion of ureteric stent (06/04/2024), Transperineal needle biopsy of prostate (06/01/2024), Cystoscopic insertion of ureteric stent (02/03/2024), Cystoscopic replacement of ureteric stent (06/10/2023), ESWL [...] to do next Scheduled Follow-Up Appointments Thursday 12:30 PM EDT With: Pratima Reno PA-C Where: [facility] [address] [place] [address] [place] [address] 1:00 PM EDT With: Diego RICKS, Orquidea Taylor Where: [facility] [address], [address] [place] [address]- Medications What How Much When Instructions Unchanged aspirin (aspirin 81 mg Chew Tab) Chewed Every day Unchanged atorvastatin (atorvastatin 20 mg Tab) 1 Tablets By Mouth Every day Unchanged bifidobacterium-lactobacil huber (Probiotic + Colostrum) By Mouth Every day Unchanged cholecalciferol (Vitamin D3 2000 intl units) By Mouth Every day Unchanged cranberry (Cranberry) Unchanged cyanocobalamin (Vitamin B-12 100 mcg oral tablet) By Mouth Every day Unchanged docusate (Dulcolax Stool Softener) By Mouth Unchanged famotidine (famotidine 20 mg Tab) 1 Tablets By Mouth Once a day (at bedtime) Unchanged insulin glargine (Lantus insulin) 25 Units Subcutaneous Once a day (at bedtime) Unchanged insulin lispro (Humalog) 8 Units Subcutaneous Unchanged multivitamin with iron (Gentle Iron oral capsule) 1 Capsules By Mouth Every day Unchanged nitrofurantoin (Macrobid 100 mg Cap) 1 Capsules By Mouth 2 times a day take 1 cap morning of cath change and 12hrs after Unchanged Non-Formulary Medication (D-mannose) Unchanged Non-Formulary Medication (iron) 25 Milligram Unchanged oxybutynin (oxybutynin 10 mg ER Tab) 1 Tablets By Mouth Every day Allergies Myrbetriq (Multiple open mouth wounds) gabapentin (Unknown, Rash) lisinopril (Unknown, DRY COUGH, Cough) Problems Ongoing - Any problem that you are currently receiving treatment for. Asymptomatic microscopic hematuria Bilateral hydronephrosis BPH with urinary obstruction Diabetes Dysuria Elevated cholesterol Family history of prostate cancer in father Glycosuria History of kidney stones HTN (hypertension) Hydroureter Hydroureteronephrosis Incomplete bladder emptying Kidney stones Microhematuria Multiple myeloma in remission Nocturia Noncompliant bladder OAB (overactive bladder) Prostate cancer Recurrent UTI Rheumatoid arthritis Ureteral stricture UTI (urinary tract infection) UTI symptoms Weak urine stream Patient Survey You may receive a survey via text or e-mail asking about your office visit. Please share your experience with us by completing your survey. We appreciate your feedback and thank you for choosing us for your care. Normal [facility] CBC W Auto Differential pane l (Bld)on 01-11-2025 Basophils (Bld) [#/Vol] 0 10*3/uL 0.0 - 0.2 10*3/uL [facility] Basophils/100 WBC Manual cnt (Syn fld) 0.3 % . [facility] Eosinophils (Bld) [#/Vol] 0.3 10*3/uL 0.0 - 0.45 10*3/uL [facility] Eosinophils/100 WBC Manual cnt (Syn fld) 4.2 % . [facility] Erythrocyte distribution width (RBC) [Ratio] 15.7 % High 12.0 - 14.8 % [facility] Hematocrit (Bld) [Volume fraction] 29.5 % Low 38.8 - 50.0 % [facility] Hemoglobin (Bld) [Mass/Vol] 10.1 g/dL Low 13.0 - 17.0 g/dL [facility] Interpretation and review of laboratory results Abnormal [facility] Lymphocytes (Bld) [#/Vol] 1.1 10*3/uL 1.00 - 4.8 10*3/uL [facility] Lymphocytes/100 WBC Manual cnt (Syn fld) 15.6 % . [facility] MCH (RBC) [Entitic mass] 35.7 pg High 27.5 - 35.2 pg [facility] MCHC (RBC) [Mass/Vol] 34.2 g/dL 32.5 - 35.6 g/dL [facility] MCV (RBC) [Entitic vol] 104.4 fL High 83.5 - 101 fL [facility] Monocytes (Bld) [#/Vol] 0.6 10*3/uL 0.0 - 0.8 10*3/uL [facility] Monocytes+Macrophages/1 00 WBC Manual cnt (Syn fld) 7.9 % . [facility] Neutrophils (Bld) [#/Vol] 5.2 10*3/uL 1.8 - 7.7 10*3/uL [facility] Neutrophils/100 WBC Manual cnt (Syn fld) 72 % . [facility] NRBC 0.1 /100{WBC} 0 - 0.5 /100{WBC} [facility] Platelet mean volume (Bld) [Entitic vol] 8.2 fL 6.6 - 10.1 fL [facility] Platelets (Bld) [#/Vol] 194 10*3/uL 150 - 450 10*3/uL [facility] RBC LM.HPF (Urine sed) [#/Area] 2.82 10*6/uL Low 3.90 - 5.60 10*6/uL [facility] WBC (Bld) [#/Vol] 7.2 10*3/uL 4.1 - 10.5 10*3/uL [facility] WBC LM.HPF (Urine sed) [#/Area] 7.2 10*3/uL 4.1 - 10.5 10*3/uL [facility] Complete Blood Count Auto Di ffon 01-11-2025 Basophils (Bld) [#/Vol] 0.0 10*3/uL Normal 0.0-0.2 [facility] Comment on above: Result Comment: PERF ORMED BY:[place] [address] [place], [place] [id number] MEDICAL NATASHA MARSH M.D. Performed By: #### C BC ####[address] Basophils/100 WBC (Bld) 0.3 % Normal . [facility] Comment on above: Performed By: #### C BC ####[address] Eosinophils (Bld) [#/Vol] 0.3 10*3/uL Normal 0.0-0.45 [facility] Comment on above: Performed By: #### C BC ####[address] Eosinophils/100 WBC (Bld) 4.2 % Normal . [facility] Comment on above: Performed By: #### C BC ####[address] Erythrocyte distribution width (RBC) [Ratio] 15.7 % High 12.0-14.8 [facility] Comment on above: Performed By: #### C BC ####[address] Hematocrit (Bld) [Volume fraction] 29.5 % Low 38.8-50.0 [facility] Comment on above: Performed By: #### C BC ####[address] Hemoglobin (Bld) [Mass/Vol] 10.1 g/dL Low 13.0-17.0 [facility] Comment on above: Performed By: #### C BC ####[address] Lymphocytes (Bld) [#/Vol] 1.1 10*3/uL Normal 1.00-4.8 [facility] Comment on above: Performed By: #### C BC ####[place] [id number] [facility] Lymphocytes/100 WBC (Bld) 15.6 % Normal . [facility] Comment on above: Performed By: #### C BC ####[place] [id number] [facility] MCH (RBC) [Entitic mass] 35.7 pg High 27.5-35.2 [facility] Comment on above: Performed By: #### C BC ####[place] [id number] [facility] MCV (RBC) [Entitic vol] 104.4 fL High 83.5-101 [facility] Comment on above: Performed By: #### C BC ####[address] Mean Corpuscular HGB Conc 34.2 g/dL Normal 32.5-35.6 [facility] Comment on above: Performed By: #### C BC ####[place] [id number] [facility] Monocytes (Bld) [#/Vol] 0.6 10*3/uL Normal 0.0-0.8 [facility] Comment on above: Performed By: #### C BC ####[place] [id number] [facility] Monocytes/100 WBC (Bld) 7.9 % Normal . [facility] Comment on above: Performed By: #### C BC ####[place] [id number] [facility] Neutrophils (Bld) [#/Vol] 5.2 10*3/uL Normal 1.8-7.7 [facility] Comment on above: Performed By: #### C BC ####[place] [id number] [facility] Neutrophils/100 WBC (Bld) 72.0 % Normal . [facility] Comment on above: Performed By: #### C BC ####[address] NRBC% 0.1 /100{WBC} Normal 0-0.5 [facility] Comment on above: Performed By: #### C BC ####[address] Platelet mean volume (Bld) [Entitic vol] 8.2 fL Normal 6.6-10.1 [facility] Comment on above: Performed By: #### C BC ####[address] Platelets (Bld) [#/Vol] 194 10*3/uL Normal 150-450 [facility] Comment on above: Performed By: #### C BC ####[address] RBC (Bld) [#/Vol] 2.82 10*6/uL Low 3.90-5.60 [facility] Comment on above: Performed By: #### C BC ####[address] WBC (Bld) [#/Vol] 7.2 10*3/uL Normal 4.1-10.5 [facility] Comment on above: Performed By: #### C BC ####[address] Urology Office/Clinic Noteon 01-11-2025 Urology Office/Clinic Note Urology Office/Clinic Note Chief Complaint SPT exchange HPI Staff SPT exchange, possible UTI History of Present Illness I have reviewed and verified the staff HPI to be accurate for this encounter. Review of Systems no fever, chills, malaise, myalgia. no abdominal pain, nausea, vomiting. Physical Exam General: Well developed, well nourished, in no acute distress. Assessment/Plan He is accompanied w/ his at today's visit 1. Recurrent UTI (N39.0: Urinary tract infection, site not specified) UCx 05/28/23 - >100k Enterobacter cloacae, but was supposed to be tx'd with Levaquin 500mg qd x7d. 06/01/23 - >100k Enterobacter cloacae, pt started Levequin therapy as indicated with prior ucx. 07/02/23 - 10k Staphylococcus epidermis, no abx given due to SPT adjustment at that time working. 07/29/24 - 30k Enterococcus faecalis, Jessica albicans Presumptive 09/12/24 - 25k Staphylococcus aureus, 5k enterococcus faecalis 10/20/24 - >100k staphylococcus auerus, resistant to multiple ATB 11/11/24 - 20k jessica albicans 11/12/24 - >100k Jessica albicans 12/21/24 - 70k staph aureus, tx w/ doxycycline 100 mg BID x 10 days Previously he was discontinued from Methenamine due to his renal insufficiency. At last visit, patient advised to start Gentamicin irrigations: Gentamicin Sulfate 480mg/1 L of 0.9 NS (remains effective for 2 months stored at room temperature). Instill: 30 once daily, cap SPT, drain after 2 hrs. Today, he shares that he completed the course of Doxycycline 3 days ago for UTI and continues to have cloudy urine. He has occasional burning sensation within urethra which has slightly improved on doxycycline. Shares he not been using Gentamicin irrigations since being on doxy. Shares he is unsure if he wants to resume Gentamicin bladder irrigations given how much irritation and burning it causes within his bladder and urethra. Previously was using Gentamicin qod. Recommend trialing Gentamicin irrigations 1-2x/weekly to see if this helps w/ his irritative sxs and UTI prevention. He is agreeable. Patient would also like his urine sent for culture today. Urine noted to be slightly cloudy with some sediment when cath exchanged today. Will await culture results prior to treatment w/ antibiotics. Explained to patient that antibiotic choices are limited given resistances and kidney function (12/14/24 - BUN 30, Cr 2.17, GFR 30.2). He verbalizes understanding. All questions answered. Increase water intake, avoid bladder irritants ER for fever, chills, NV, severe flank pain -Send urine for culture, call pt w/ results -Treat with antibiotics based on UCX if infection present -Cont Gentamicin bladder irrigations as tolerated (pt to trial 1-2x/weekly). Pt aware he can use intravesical Gentamicin along w/ oral antibiotics. -Increase fluid intake, avoid bladder irritants -RTC in 3 weeks for cath change -F/U scheduled in February w/ KML 2. Noncompliant bladder (N31.9: Neuromuscular dysfunction of bladder, unspecified) SPT exchanged in office today, see adhoc -RTO in 3 weeks for next cath exchange Follow-up With When Contact Information Pratima Reno PA-C, URL Additional Instructions: RTC in 3 weeks for cath change Patient Education Urinary Tract Infection, Adult Problem List/Past Medical History Ongoing Asymptomatic microscopic hematuria Bilateral hydronephrosis BPH with urinary obstruction Diabetes Dysuria Elevated cholesterol Family history of prostate cancer in father Glycosuria History of kidney stones HTN (hypertension) Hydroureter Hydroureteronephrosis Incomplete bladder emptying Kidney stones Microhematuria Multiple myeloma in remission Nocturia Noncompliant bladder OAB (overactive bladder) Prostate cancer Recurrent UTI Rheumatoid arthritis Ureteral stricture UTI (urinary tract infection) UTI symptoms Weak urine stream Historical No qualifying data Procedure/Surgical History Change of suprapubic catheter (07/28/2024), Cystoscopic insertion of ureteric stent (06/04/2024), Transperineal needle biopsy of prostate (06/01/2024), Cystoscopic insertion of ureteric stent (02/03/2024), Cystoscopic replacement of ureteric stent (06/10/2023), ESWL of kidney (06/10/2023), Cystostomy and insertion of suprapubic tube (03/05/2023), Cystoscopic insertion of ureteric stent (12/10/2022), TURP - Transurethral resection of prostate (08/27/2022), Transurethral insertion of prostatic urethral lift implant (05/05/2022), Cystoscopic removal of ureteric stent (08/20/2012), Cystoscopic ureteroneocystostomy with insertion 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 Medications aspirin 81 mg Chew Tab, Chewed, Daily atorvastatin 20 mg Tab, 20 mg= 1 tab(s), Oral, Daily Cranberry D-mannose Dulcolax Stool Softener, Oral famotidine 20 mg Tab, 20 mg= 1 tab(s), Oral, Once a day (at bedtime) Gentle Iron oral capsule, 1 cap(s), Oral, Daily Humalog, 8 unit(s), SubCutaneous, N (more content not included)... Normal [facility] Comment on above: Result Comment: Elec tronically Signed By: Shadia COOPER, Pratima\.angel\Date and Time Signed: 01/11/25 12:22 EDT Albumin [Mass/volume] in Ser um or Plasma by Bromocresol green (BCG) dye binding methoOrdered By: Price Crain on 12-28-2024 Albumin BCG dye [Mass/Vol] Albumin [Mass/volume] in Serum or Plasma by Bromocresol green (BCG) dye binding metho 3.5-5.7 [facility] Albumin BCG dye [Mass/Vol] 3.7 g/dL 3.5-5.7 [facility] Calcium [Mass/volume] in Ser um or PlasmaOrdered By: Price Crain on 12-28-2024 Calcium [Mass/Vol] Calcium [Mass/volume ] in Serum or Plasma 8.6-10.3 [facility] Calcium [Mass/Vol] 8.9 mg/dL Normal 8.6-10.3 [facility] Comment on above: Performed By: #### R ENAL, MG, PROCRERAT, CBCNO, URIC ####[facility] [id number] Carbon dioxide, total [Moles /volume] in Serum or PlasmaOrdered By: Price Crain on 12-28-2024 CO2 [Moles/Vol] Carbon dioxide, tota l [Moles/volume] in Serum or Plasma 21.0-31.0 [facility] CO2 [Moles/Vol] 23.8 mmol/L Normal 21.0-31.0 [facility] Comment on above: Performed By: #### R ENAL, MG, PROCRERAT, CBCNO, URIC ####[facility] [place] [address] [place] Chloride [Moles/volume] in S valeria or PlasmaOrdered By: Price Crain on 12-28-2024 Chloride [Moles/Vol] Chloride [Moles/vol ume] in Serum or Plasma High 98-107 [facility] Chloride [Moles/Vol] 109 mmol/L High 98-107 [facility] Comment on above: Performed By: #### R ENAL, MG, PROCRERAT, CBCNO, URIC ####[facility] Creatinine [Mass/volume] in Serum or PlasmaOrdered By: Price Crain on 12-28-2024 Creatinine [Mass/Vol] Creatinine [Mass/v olume] in Serum or Plasma High 0.70-1.30 [facility] Creatinine [Mass/Vol] 1.97 mg/dL High 0.70-1.30 [facility] Comment on above: Performed By: #### R ENAL, MG, PROCRERAT, CBCNO, URIC ####[place] [id number] [address] Creatinine [Mass/volume] in UrineOrdered By: Price Crain on 12-28-2024 Creatinine (U) [Mass/Vol] Creatinine [Mass/volume] in Urine [facility] Comment on above: No reference range e stablished Creatinine (U) [Mass/Vol] 82.00 mg/dL [facility] Erythrocyte distribution wid th Auto (RBC) [Ratio]Ordered By: Price Crain on 12-28-2024 Erythrocyte distribution width (RBC) [Ratio] Erythrocyte distribution width [Ratio] by Automated count [facility] 12.0-14.8 [facility] Erythrocyte distribution wid th [Ratio] by Automated countOrdered By: Price Crain on 12-28-2024 Erythrocyte distribution width (RBC) [Ratio] 15.3 % High 12.0-14.8 [facility] Comment on above: Performed By: #### R ENAL, MG, PROCRERAT, CBCNO, URIC ####[place] [id number] [address] Erythrocytes [#/volume] in B lood by Automated countOrdered By: Price Crain on 12-28-2024 RBC (Bld) [#/Vol] 3.00 10*6/uL Low 3.90-5.60 [facility] Comment on above: Performed By: #### R ENAL, MG, PROCRERAT, CBCNO, URIC ####[facility] [address] Glucose [Mass/volume] in Ser um or PlasmaOrdered By: Price Crain on 12-28-2024 Glucose [Mass/Vol] Glucose [Mass/volume ] in Serum or Plasma High 70-100 [facility] Comment on above: ADA recommended refe rence rangeRandom Glucose Reference Range is dependent on time and content of last meal. Glucose of more than 200 mg/dL in a nonstressed, ambulatory subject supports the diagnosis of Diabetes Mellitus. Glucose [Mass/Vol] 203 mg/dL High 70-100 [facility] Comment on above: Result Comment: Ignacio om Glucose Reference Range is dependent on time and content of last meal. Glucose of more than 200 mg/dL in a nonstressed, ambulatory subject supports the diagnosis of Diabetes Mellitus. ADA recommended reference range Performed By: #### R ENAL, MG, PROCRERAT, CBCNO, URIC ####[facility] Hematocrit Auto (Bld) [Volum e fraction]Ordered By: Price Crain on 12-28-2024 Hematocrit (Bld) [Volume fraction] Hematocrit [Volume Fraction] of Blood by Automated count Low 38.8-50.0 [facility] Hematocrit [Volume Fraction] of Blood by Automated countOrdered By: Price Crain on 12-28-2024 Hematocrit (Bld) [Volume fraction] 30.9 % Low 38.8-50.0 [facility] Comment on above: Performed By: #### R ENAL, MG, PROCRERAT, CBCNO, URIC ####[place] [id number] [address] Hemoglobin [Mass/volume] in BloodOrdered By: Price Crain on 12-28-2024 Hemoglobin (Bld) [Mass/Vol] Hemoglobin [Mass/volume] in Blood Low 13.0-17.0 [facility] Hemoglobin (Bld) [Mass/Vol] 10.5 g/dL Low 13.0-17.0 [facility] Comment on above: Performed By: #### R ENAL, MG, PROCRERAT, CBCNO, URIC ####[address] Hemogram CBC Without Diffon 12-28-2024 Mean Corpuscular HGB Conc 34.1 g/dL Normal 32.5-35.6 [facility] Comment on above: Performed By: #### R ENAL, MG, PROCRERAT, CBCNO, URIC ####[address] WBC (Bld) [#/Vol] 6.9 10*3/uL Normal 4.1-10.5 [facility] Comment on above: Performed By: #### R ENAL, MG, PROCRERAT, CBCNO, URIC ####[address] Leukocytes [#/volume] correc lizbet for nucleated erythrocytes in Blood by Automated counOrdered By: Price Crain on 12-28-2024 WBC corrected for nucl RBC Auto (Bld) [#/Vol] Leukocytes [#/volume] corrected for nucleated erythrocytes in Blood by Automated coun 4.1-10.5 [facility] WBC corrected for nucl RBC Auto (Bld) [#/Vol] 6.9 10*3/uL 4.1-10.5 [facility] MCH Auto (RBC) [Entitic mass ]Ordered By: Price Crian on 12-28-2024 MCH (RBC) [Entitic mass] MCH [Entitic mass] by Automated count 27.5-35.2 [facility] MCH [Entitic mass] by Automa lizbet countOrdered By: Price Crain on 12-28-2024 MCH (RBC) [Entitic mass] 35.2 pg Normal 27.5-35.2 [facility] Comment on above: Performed By: #### R ENAL, MG, PROCRERAT, CBCNO, URIC ####[address] MCHC Auto (RBC) [Mass/Vol]Or dered By: Price Crain on 12-28-2024 MCHC (RBC) [Mass/Vol] MCHC [Mass/volume] by Automated count 32.5-35.6 [facility] MCHC (RBC) [Mass/Vol] 34.1 g/dL 32.5-35.6 [facility] MCV Auto (RBC) [Entitic vol] Ordered By: Price Crain on 12-28-2024 MCV (RBC) [Entitic vol] MCV [Entitic vol ume] by Automated count High 83.5-101 [facility] MCV [Entitic volume] by Auto mated countOrdered By: Price Crain on 12-28-2024 MCV (RBC) [Entitic vol] 103.1 fL High 83.5-[address] [facility] Comment on above: Performed By: #### R ENAL, MG, PROCRERAT, CBCNO, URIC ####[place] [id number] [address] Magnesium [Mass/volume] in S valeria or PlasmaOrdered By: Price Crain on 12-28-2024 Magnesium [Mass/Vol] Magnesium [Mass/vol ume] in Serum or Plasma 1.9-2.7 [facility] Magnesium [Mass/Vol] 2.0 mg/dL Normal 1.9-2.7 [facility] Comment on above: Performed By: #### R ENAL, MG, PROCRERAT, CBCNO, URIC ####[address] No Panel InformationOrdered By: Price Crain on 12-28-2024 Estimated GFR (CKD-EPI) 33.935 mL/Min [facility] Creatinine Clearance (Chem N/A [facility] 33.935 mL/Min [facility] N/A [facility] Phosphate [Mass/volume] in S valeria or PlasmaOrdered By: Price Crain on 12-28-2024 Phosphate [Mass/Vol] Phosphate [Mass/vol ume] in Serum or Plasma 2.5-4.5 [facility] Phosphate [Mass/Vol] 3.0 mg/dL Normal 2.5-4.5 [facility] Comment on above: Performed By: #### R ENAL, MG, PROCRERAT, CBCNO, URIC ####[place] [id number] [place] [id number] [facility] Platelet mean volume Auto (B ld) [Entitic vol]Ordered By: Price Crain on 12-28-2024 Platelet mean volume (Bld) [Entitic vol] Platelet mean volume [Entitic volume] in Blood by Automated count 6.6-10.1 [facility] Platelet mean volume [Entiti c volume] in Blood by Automated countOrdered By: Price Crain on 12-28-2024 Platelet mean volume (Bld) [Entitic vol] 7.6 fL Normal 6.6-10.1 [facility] Comment on above: Result Comment: PERF ORMED BY:[address] [place], [place] [id number] MEDICAL DIRECTORDOMINIC FRANK M.D. Performed By: #### R ENAL, MG, PROCRERAT, CBCNO, URIC ####[place] [id number] [facility] Platelets Auto (Bld) [#/Vol] Ordered By: Price Crain on 12-28-2024 Platelets (Bld) [#/Vol] Platelets [#/vol ume] in Blood by Automated count 150-450 [facility] Platelets [#/volume] in Bloo d by Automated countOrdered By: Price Crain on 12-28-2024 Platelets (Bld) [#/Vol] 185 10*3/uL Normal 150-450 [facility] Comment on above: Performed By: #### R ENAL, MG, PROCRERAT, CBCNO, URIC ####[place] [id number] [place] [id number] [facility] Potassium [Moles/volume] in Serum or PlasmaOrdered By: Price Crain on 12-28-2024 Potassium [Moles/Vol] Potassium [Moles/v olume] in Serum or Plasma 3.5-5.1 [facility] Potassium [Moles/Vol] 3.9 mmol/L Normal 3.5-5.1 [facility] Comment on above: Performed By: #### R ENAL, MG, PROCRERAT, CBCNO, URIC ####[place] [id number] [place] [id number] [facility] Protein Creat Ratio Ur Rando mon 12-28-2024 Creatinine, Urine (Random) 82.00 mg/dL Normal [facility] Comment on above: Result Comment: No r eference range established Performed By: #### R ENAL, MG, PROCRERAT, CBCNO, URIC ####[place] [id number] [address] Urine Protein/Creatinine Ratio Not performed Normal 0-200 [facility] Comment on above: Result Comment: PERF ORMED BY:[address] [place], [place] [id number] MEDICAL DIRECTORDOMINIC FRANK M.D. Performed By: #### R ENAL, MG, PROCRERAT, CBCNO, URIC ####[address] Protein [Mass/volume] in Uri neOrdered By: Price Crain on 12-28-2024 Protein (U) [Mass/Vol] Protein [Mass/vol ume] in Urine High 0-9 [facility] Protein (U) [Mass/Vol] 300 mg/dL High 0-9 [facility] Comment on above: Performed By: #### R ENAL, MG, PROCRERAT, CBCNO, URIC ####[place] [id number] [facility] RBC Auto (Bld) [#/Vol]Ordere d By: Price Crain on 12-28-2024 RBC (Bld) [#/Vol] Erythrocytes [#/volu me] in Blood by Automated count Low 3.90-5.60 [facility] Renal Function Panelon 12-28 Albumin [Mass/Vol] 3.7 g/dL Normal 3.5-5.7 [facility] Comment on above: Performed By: #### R ENAL, MG, PROCRERAT, CBCNO, URIC ####[place] [id number] [place] [id number] [facility] Estimated GFR 33.935 mL/Min Normal [facility] Comment on above: Performed By: #### R ENAL, MG, PROCRERAT, CBCNO, URIC ####[place] [id number] [place] [id number] [facility] Serum or plasma anion gap de terminationOrdered By: Price Crain on 12-28-2024 Anion gap [Moles/Vol] Serum or plasma an ion gap determination 6.0-15.0 [facility] Anion gap [Moles/Vol] 10.1 mmol/L Normal 6.0-15.0 [facility] Comment on above: Performed By: #### R ENAL, MG, PROCRERAT, CBCNO, URIC ####[place] [id number] [place] [id number] [facility] Sodium [Moles/volume] in Ser um or PlasmaOrdered By: Price Crain on 12-28-2024 Sodium [Moles/Vol] Sodium [Moles/volume ] in Serum or Plasma 136-145 [facility] Sodium [Moles/Vol] 139 mmol/L Normal 136-145 [facility] Comment on above: Performed By: #### R ENAL, MG, PROCRERAT, CBCNO, URIC ####[place] [id number] [place] [id number] [facility] Urate [Mass/volume] in Serum or PlasmaOrdered By: Price Crain on 12-28-2024 Urate [Mass/Vol] Urate [Mass/volume] in Serum or Plasma Low 4.4-7.6 [facility] Urate [Mass/Vol] 3.5 mg/dL Low 4.4-7.6 [facility] Comment on above: Result Comment: PERF ORMED BY:[address] [place], [place] [id number] MEDICAL TITA FRANK M.D. Performed By: #### R ENAL, MG, PROCRERAT, CBCNO, URIC ####[facility] [id number] [place] [id number] [facility] Urea nitrogen [Mass/volume] in Serum or PlasmaOrdered By: Price Crain on 12-28-2024 Urea nitrogen [Mass/Vol] Urea nitrogen [Mass/volume] in Serum or Plasma 03-10 [facility] Urea nitrogen [Mass/Vol] 22 mg/dL Normal 03-10 [facility] Comment on above: Performed By: #### R ENAL, MG, PROCRERAT, CBCNO, URIC ####[facility] [id number] [place] [id number] [facility] Urine protein/creatinine rat ioOrdered By: Price Crain on 12-28-2024 Protein/Creatinine (U) [Ratio] Urine protein/creatinine ratio [facility] Comment on above: Test not performed Protein/Creatinine (U) [Ratio] TNP [facility] C Urineon 12-23-2024 Bacteria identified Cx Nom (U) Microbiology PROCEDURE: Urine Culture [R1] SOURCE: U Cath BODY SITE: COLLECTED DATE/TIME: 12/21/2024 11:51 EDT RECEIVED DATE/TIME: 12/21/2024 17:54 EDT START DATE/TIME: 12/21/2024 17:54 EDT FREE TEXT SOURCE: halle Reno PA-C, Pratima Reno PA-C, Pratima FINAL REPORTS Final Report [] Verified Date/Time: 12/23/2024 17:00 EDT 70,000 cfu/ml Staphylococcus aureus SUSCEPTIBILITY RESULTS _ LEGEND: S=Susceptible, N/R=Not Reported, Blank=Data not available, or drug not advisable or tested, I=Intermediate, ESBL=Extended spectrum beta-lactamase, R=Resistant, TFG=Thymidine-dependent strain, RADHA=Beta-lactamase positive, DEEPA=mcg/m;(mg/L), S*=Predicted susceptible interp, R*=Predicted resistant interp SA Antibiotic DEEPA Dilutn DEEPA Interp Amoxicillin/ <=4/2 S Clavulanate Ampicillin >8 RADHA Ampicillin/ <=8/4 S Sulbactam Cefazolin <=8 S Ceftaroline <=0.5 S Ciprofloxacin >2 R Daptomycin <=1 S Gentamicin <=4 S Levofloxacin >4 R Linezolid <=2 S Nitrofurantoin <=32 S Oxacillin 1 S Penicillin >8 RADHA Rifampin <=1 S Tetracycline <=4 S Trimethoprim/ >2/38 R Sulfa Vancomycin 1 S Performing Locations R1: This test was performed at: [facility], [address] [place] [address], [facility]- , [place], [facility] Comment on above: Performed By: #### [id number] #### [facility] [address] [place] [address] Urology Office/Clinic Noteon 12-21-2024 Urology Office/Clinic Note Urology Office/Clinic Note Chief Complaint SPT exchange HPI Staff SPT exchange, possible UTI History of Present Illness I have reviewed and verified the staff HPI to be accurate for this encounter. Review of Systems no fever, chills, malaise, myalgia. no abdominal pain, nausea, vomiting. Physical Exam General: Well developed, well nourished, in no acute distress. Assessment/Plan Pt presents w/ his today 1. Recurrent UTI (N39.0: Urinary tract infection, site not specified) UCx 05/28/23 - >100k Enterobacter cloacae, but was supposed to be tx'd with Levaquin 500mg qd x7d. 06/01/23 - >100k Enterobacter cloacae, pt started Levequin therapy as indicated with prior ucx. 07/02/23 - 10k Staphylococcus epidermis, no abx given due to SPT adjustment at that time working. 07/29/24 - 30k Enterococcus faecalis, Jessica albicans Presumptive 09/12/24 - 25k Staphylococcus aureus, 5k enterococcus faecalis 10/20/24 - >100k staphylococcus auerus, resistant to multiple ATB 11/11/24 - 20k jessica albicans 11/12/24 - >100k Jessica albicans Was previously started on Methenamine, but advised to stop at last OV due to worsening renal function. At last visit, patient advised to start Gentamicin irrigations: Gentamicin Sulfate 480mg/1 L of 0.9 NS (remains effective for 2 months stored at room temperature). Instill: 30 once daily, cap SPT, drain after 2 hrs. Patient reports using Gentamicin irrigations every other day instead of daily due to medication causing irritation in bladder and penis. Today, he reports cloudy urine that began this past week, thinks he may have an infection. Noted to have cloudy urine/sediment when cath exchanged today. He brought in specimen from home today, but informed pt that this is likely contaminated given old cath. Will obtain clean catch urine from new cath to send for culture. Will await culture results prior to treatment w/ antibiotics. Unable to increase dose of Gentamicin for treatment of UTI 2/2 irritation, so will provide oral antibiotics once UCX finalizes. Pt verbalizes understanding. -Send urine for culture, call pt w/ results -Treat w/ oral antibiotics if infection present based on UCX -Cont Gentamicin bladder irrigation qod -Increase fluid intake, avoid bladder irritants 2. Noncompliant bladder (N31.9: Neuromuscular dysfunction of bladder, unspecified) SPT exchanged in office today, see adhoc -RTO in 3 weeks for next cath exchange Follow-up With When Contact Information Pratima Reno PA-C, [place] Additional Instructions: 3 weeks for SPT exchange Patient Education Urinary Tract Infection, Adult Problem List/Past Medical History Ongoing Asymptomatic microscopic hematuria Bilateral hydronephrosis BPH with urinary obstruction Diabetes Dysuria Elevated cholesterol Family history of prostate cancer in father Glycosuria History of kidney stones HTN (hypertension) Hydroureter Hydroureteronephrosis Incomplete bladder emptying Kidney stones Microhematuria Multiple myeloma in remission Nocturia Noncompliant bladder OAB (overactive bladder) Prostate cancer Recurrent UTI Rheumatoid arthritis Ureteral stricture UTI (urinary tract infection) UTI symptoms Weak urine stream Historical No qualifying data Procedure/Surgical History Change of suprapubic catheter (07/28/2024), Cystoscopic insertion of ureteric stent (06/04/2024), Transperineal needle biopsy of prostate (06/01/2024), Cystoscopic insertion of ureteric stent (02/03/2024), Cystoscopic replacement of ureteric stent (06/10/2023), ESWL of kidney (06/10/2023), Cystostomy and insertion of suprapubic tube (03/05/2023), Cystoscopic insertion of ureteric stent (12/10/2022), TURP - Transurethral resection of prostate (08/27/2022), Transurethral insertion of prostatic urethral lift implant (05/05/2022), Cystoscopic removal of ureteric stent (08/20/2012), Cystoscopic ureteroneocystostomy with insertion 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 Medications aspirin 81 mg Chew Tab, Chewed, Daily atorvastatin 20 mg Tab, 20 mg= 1 tab(s), Oral, Daily Cranberry D-mannose Dulcolax Stool Softener, Oral famotidine 20 mg Tab, 20 mg= 1 tab(s), Oral, Once a day (at bedtime) Gentle Iron oral capsule, 1 cap(s), Oral, Daily Humalog, 8 unit(s), SubCutaneous, Not taking iron, 25 mg Lantus insulin, 25 unit(s), SubCutaneous, Once a day (at bedtime), Not taking Macrobid 100 mg Cap, 100 mg= 1 cap(s), Oral, BID, 1 refills oxybutynin 10 mg ER Tab, 10 mg= 1 tab(s), Oral, Daily Probiotic + Colostrum, Oral, Daily Vitamin B-12 100 mcg oral tablet, Oral, Daily Vitamin D3 2000 intl units, Oral, Daily Allergies Myrbetriq (Multiple open mouth wounds) gabapentin (Unknown, Rash) lisinopril (Unknown, DRY COUGH, Cough) Social History Alcohol Past. Beer. 1-2 times per year., 06/20/2024 Substance Abuse Never., 06/20/2024 Tobacco quit 28 years Tobacco Use:. Never Smokeless Tobacco (more content not included)... Normal [facility] Comment on above: Result Comment: Elec tronically Signed By: Shadia COOPER, Pratima\.br\Date and Time Signed: 12/21/24 11:54 EDT Basic Metabolic Panelon 11-17 Estimated GFR 30.217 mL/Min Normal [facility] Comment on above: Performed By: #### B ####[facility] [id number] [place] [address] [facility] Basophils Auto (Bld) [#/Vol] Ordered By: Brook Huddleston on 12-14-2024 Basophils (Bld) [#/Vol] Automated basophil count 0.0-0.2 [facility] Basophils/100 WBC Auto (Bld) Ordered By: Brook Huddleston on 12-14-2024 Basophils/100 WBC (Bld) Automated basophil % . [facility] CBC W Auto Differential pane l (Bld)on 12-14-2024 Basophils (Bld) [#/Vol] 0 10*3/uL 0.0 - 0.2 10*3/uL [facility] Basophils/100 WBC Manual cnt (Syn fld) 0.6 % . [facility] Eosinophils (Bld) [#/Vol] 0.3 10*3/uL 0.0 - 0.45 10*3/uL [facility] Eosinophils/100 WBC Manual cnt (Syn fld) 3.6 % . [facility] Erythrocyte distribution width (RBC) [Ratio] 15.3 % High 12.0 - 14.8 % [facility] Hematocrit (Bld) [Volume fraction] 31.2 % Low 38.8 - 50.0 % [facility] Hemoglobin (Bld) [Mass/Vol] 10.9 g/dL Low 13.0 - 17.0 g/dL [facility] Interpretation and review of laboratory results Abnormal [facility] Lymphocytes (Bld) [#/Vol] 1 10*3/uL 1.00 - 4.8 10*3[facility] Lymph[facility] WBC Manual cnt (Syn fld) 13.1 % . [facility] MCH (RBC) [Entitic mass] 36.3 pg High 27.5 - 35.2 pg [facility] MCHC (RBC) [Mass/Vol] 34.9 g/dL 32.5 - 35.6 g/dL [facility] MCV (RBC) [Entitic vol] 104 fL High 83.5 - 101 fL [facility] Monocytes (Bld) [#/Vol] 0.4 10*3/uL 0.0 - 0.8 10*3/uL [facility] Monocytes+Macrophages/1 00 WBC Manual cnt (Syn fld) 5.6 % . [facility] Neutrophils (Bld) [#/Vol] 5.8 10*3/uL 1.8 - 7.7 10*3/uL [facility] Neutrophils/100 WBC Manual cnt (Syn fld) 77.1 % . [facility] NRBC 0.1 /100{WBC} 0 - 0.5 /100{WBC} [facility] Platelet mean volume (Bld) [Entitic vol] 7.7 fL 6.6 - 10.1 fL [facility] Platelets (Bld) [#/Vol] 188 10*3/uL 150 - 450 10*3/uL [facility] RBC LM.HPF (Urine sed) [#/Area] 3 10*6/uL Low 3.90 - 5.60 10*6/uL [facility] WBC (Bld) [#/Vol] 7.5 10*3/uL 4.1 - 10.5 10*3/uL [facility] WBC LM.HPF (Urine sed) [#/Area] 7.5 10*3/uL 4.1 - 10.5 10*3/uL [facility] Calcium [Mass/volume] in Ser um or PlasmaOrdered By: Orquidea Cortez on 12-14-2024 Calcium [Mass/Vol] Calcium [Mass/volume ] in Serum or Plasma 8.6-10.3 [facility] Calcium [Mass/Vol] 9.3 mg/dL Normal 8.6-10.3 [facility] Comment on above: Result Comment: PERF ORMED BY:[facility] [place], [place] [id number] MEDICAL DIRECTORDOMINIC FRANK M.D. Performed By: #### B MP ####[address] [address] [facility] Carbon dioxide, total [Moles /volume] in Serum or PlasmaOrdered By: Orquidea Cortez on 12-14-2024 CO2 [Moles/Vol] Carbon dioxide, tota l [Moles/volume] in Serum or Plasma 21.0-31.0 [facility] CO2 [Moles/Vol] 23.3 mmol/L Normal 21.0-31.0 [facility] Comment on above: Performed By: #### B MP ####[place] [id number] [facility] Chloride [Moles/volume] in S valeria or PlasmaOrdered By: Orquidea Cortez on 12-14-2024 Chloride [Moles/Vol] Chloride [Moles/vol ume] in Serum or Plasma High 98-107 [facility] Chloride [Moles/Vol] 110 mmol/L High 98-107 [facility] Comment on above: Performed By: #### B MP ####[place] [id number] [facility] Complete Blood Count Auto Di ffon 12-14-2024 Basophils (Bld) [#/Vol] 0.0 10*3/uL Normal 0.0-0.2 [facility] Comment on above: Result Comment: PERF ORMED BY:[place] [address] [address] [place], [place] [id number] MEDICAL DIRECTORDOMINIC FRANK M.D. Performed By: #### C BC ####[place] [id number] [facility] Basophils/100 WBC (Bld) 0.6 % Normal . [facility] Comment on above: Performed By: #### C BC ####[place] [id number] [facility] Eosinophils (Bld) [#/Vol] 0.3 10*3/uL Normal 0.0-0.45 [facility] Comment on above: Performed By: #### C BC ####[address] Eosinophils/100 WBC (Bld) 3.6 % Normal . [facility] Comment on above: Performed By: #### C BC ####[address] Erythrocyte distribution width (RBC) [Ratio] 15.3 % High 12.0-14.8 [facility] Comment on above: Performed By: #### C BC ####[address] Hematocrit (Bld) [Volume fraction] 31.2 % Low 38.8-50.0 [facility] Comment on above: Performed By: #### C BC ####[address] Hemoglobin (Bld) [Mass/Vol] 10.9 g/dL Low 13.0-17.0 [facility] Comment on above: Performed By: #### C BC ####[address] Lymphocytes (Bld) [#/Vol] 1.0 10*3/uL Normal 1.00-4.8 [facility] Comment on above: Performed By: #### C BC ####[address] Lymphocytes/100 WBC (Bld) 13.1 % Normal . [facility] Comment on above: Performed By: #### C BC ####[address] MCH (RBC) [Entitic mass] 36.3 pg High 27.5-35.2 [facility] Comment on above: Performed By: #### C BC ####[address] MCV (RBC) [Entitic vol] 104.0 fL High 83.5-101 [facility] Comment on above: Performed By: #### C BC ####[address] [address] [facility] Mean Corpuscular HGB Conc 34.9 g/dL Normal 32.5-35.6 [facility] Comment on above: Performed By: #### C BC ####[address] [address] [facility] Monocytes (Bld) [#/Vol] 0.4 10*3/uL Normal 0.0-0.8 [facility] Comment on above: Performed By: #### C BC ####[place] [id number] [facility] Monocytes/100 WBC (Bld) 5.6 % Normal . [facility] Comment on above: Performed By: #### C BC ####[place] [id number] [facility] Neutrophils (Bld) [#/Vol] 5.8 10*3/uL Normal 1.8-7.7 [facility] Comment on above: Performed By: #### C BC ####[address] [address] [facility] Neutrophils/100 WBC (Bld) 77.1 % Normal . [facility] Comment on above: Performed By: #### C BC ####[address] [address] [facility] NRBC% 0.1 /100{WBC} Normal 0-0.5 [facility] Comment on above: Performed By: #### C BC ####[address] [address] [facility] Platelet mean volume (Bld) [Entitic vol] 7.7 fL Normal 6.6-10.1 [facility] Comment on above: Performed By: #### C BC ####[address] [address] [facility] Platelets (Bld) [#/Vol] 188 10*3/uL Normal 150-450 [facility] Comment on above: Performed By: #### C BC ####[place] [address] [place] [id number] [facility] RBC (Bld) [#/Vol] 3.00 10*6/uL Low 3.90-5.60 [facility] Comment on above: Performed By: #### C BC ####[place] [id number] [place] [id number] [facility] WBC (Bld) [#/Vol] 7.5 10*3/uL Normal 4.1-10.5 [facility] Comment on above: Performed By: #### C BC ####[place] [id number] [place] [id number] [facility] Creatinine [Mass/volume] in Serum or PlasmaOrdered By: Orquidea Cortez on 12-14-2024 Creatinine [Mass/Vol] Creatinine [Mass/v olume] in Serum or Plasma High 0.70-1.30 [facility] Creatinine [Mass/Vol] 2.17 mg/dL High 0.70-1.30 [facility] Comment on above: Performed By: #### B MP ####[place] [id number] [place] [id number] [facility] Eosinophils Auto (Bld) [#/Vo l]Ordered By: Brook Huddleston on 12-14-2024 Eosinophils (Bld) [#/Vol] Automated eosinophil count 0.0-0.45 [facility] Eosinophils/100 WBC Auto (Bl d)Ordered By: Brook Huddleston on 12-14-2024 Eosinophils/100 WBC (Bld) Automated eosinophil % . [facility] Erythrocyte distribution wid th Auto (RBC) [Ratio]Ordered By: Brook Huddleston on 12-14-2024 Erythrocyte distribution width (RBC) [Ratio] Erythrocyte distribution width [Ratio] by Automated count High 12.0-14.8 [facility] Glucose [Mass/volume] in Ser um or PlasmaOrdered By: Orquidea Cortez on 12-14-2024 Glucose [Mass/Vol] Glucose [Mass/volume ] in Serum or Plasma High 70-100 [facility] Comment on above: ADA recommended refe rence rangeRandom Glucose Reference Range is dependent on time and content of last meal. Glucose of more than 200 mg/dL in a nonstressed, ambulatory subject supports the diagnosis of Diabetes Mellitus. Glucose [Mass/Vol] 106 mg/dL High 70-100 [facility] Comment on above: Result Comment: Ignacio Glucose Reference Range is dependent on time and content of last meal. Glucose of more than 200 mg/dL in a nonstressed, ambulatory subject supports the diagnosis of Diabetes Mellitus. ADA recommended reference range Performed By: #### B ####[facility] [id number] [place] [address] [facility] Hematocrit Auto (Bld) [Volum e fraction]Ordered By: Brook Huddleston on 12-14-2024 Hematocrit (Bld) [Volume fraction] Hematocrit [Volume Fraction] of Blood by Automated count Low 38.8-50.0 [facility] Hemoglobin [Mass/volume] in BloodOrdered By: Brook Huddleston on 12-14-2024 Hemoglobin (Bld) [Mass/Vol] Hemoglobin [Mass/volume] in Blood Low 13.0-17.0 [facility] Leukocytes [#/volume] correc lizbet for nucleated erythrocytes in Blood by Automated counOrdered By: Brook Huddleston on 12-14-2024 WBC corrected for nucl RBC Auto (Bld) [#/Vol] Leukocytes [#/volume] corrected for nucleated erythrocytes in Blood by Automated coun 4.1-10.5 [facility] Lymphocytes Auto (Bld) [#/Vo l]Ordered By: Brook Huddleston on 12-14-2024 Lymphocytes (Bld) [#/Vol] Lymphocytes [#/volume] in Blood by Automated count 1.00-4.8 [facility] Lymphocytes/100 WBC Auto (Bl d)Ordered By: Brook Huddleston on 12-14-2024 Lymphocytes/100 WBC (Bld) Lymphocytes/100 leukocytes in Blood by Automated count . [facility] MCH Auto (RBC) [Entitic mass ]Ordered By: Brook Huddleston on 12-14-2024 MCH (RBC) [Entitic mass] MCH [Entitic mass] by Automated count High 27.5-35.2 [facility] MCHC Auto (RBC) [Mass/Vol]Or dered By: Brook Huddleston on 12-14-2024 MCHC (RBC) [Mass/Vol] MCHC [Mass/volume] by Automated count 32.5-35.6 [facility] MCV Auto (RBC) [Entitic vol] Ordered By: Brook Huddleston on 12-14-2024 MCV (RBC) [Entitic vol] MCV [Entitic vol ume] by Automated count High 83.5-101 [facility] Monocytes Auto (Bld) [#/Vol] Ordered By: Brook Huddleston on 12-14-2024 Monocytes (Bld) [#/Vol] Automated blood monocyte count 0.0-0.8 [facility] Monocytes/100 WBC Auto (Bld) Ordered By: Brook Huddleston on 12-14-2024 Monocytes/100 WBC (Bld) Automated monocyte % . [facility] Neutrophils Auto (Bld) [#/Vo l]Ordered By: Brook Huddleston on 12-14-2024 Neutrophils (Bld) [#/Vol] Neutrophils [#/volume] in Blood by Automated count 1.8-7.7 [facility] Neutrophils/100 WBC Auto (Bl d)Ordered By: Brook Huddleston on 12-14-2024 Neutrophils/100 WBC (Bld) Automated neutrophil % . [facility] No Panel InformationOrdered By: Orquidea Cortez on 12-14-2024 Estimated GFR (CKD-EPI) 30.217 mL/Min [facility] Creatinine Clearance (Chem N/A [facility] 30.217 mL/Min [facility] N/A [facility] Nucleated erythrocytes [Pres ence] in Blood by Automated countOrdered By: Brook Huddleston on 12-14-2024 Nucleated RBC Auto Ql (Bld) Nucleated erythrocytes [Presence] in Blood by Automated count 0-0.5 [facility] Platelet mean volume Auto (B ld) [Entitic vol]Ordered By: Brook Huddleston on 12-14-2024 Platelet mean volume (Bld) [Entitic vol] Platelet mean volume [Entitic volume] in Blood by Automated count 6.6-10.1 [facility] Platelets Auto (Bld) [#/Vol] Ordered By: Brook Huddleston on 12-14-2024 Platelets (Bld) [#/Vol] Platelets [#/vol ume] in Blood by Automated count 150-450 [facility] Potassium [Moles/volume] in Serum or PlasmaOrdered By: Orquidea Cortez on 12-14-2024 Potassium [Moles/Vol] Potassium [Moles/v olume] in Serum or Plasma 3.5-5.1 [facility] Potassium [Moles/Vol] 4.2 mmol/L Normal 3.5-5.1 [facility] Comment on above: Performed By: #### B MP ####[place] [id number] RBC Auto (Bld) [#/Vol]Ordere d By: Brook Huddleston on 12-14-2024 RBC (Bld) [#/Vol] Erythrocytes [#/volu me] in Blood by Automated count Low 3.90-5.60 [facility] Serum or plasma anion gap de terminationOrdered By: Orquidea Cortez on 12-14-2024 Anion gap [Moles/Vol] Serum or plasma an ion gap determination 6.0-15.0 [facility] Anion gap [Moles/Vol] 10.9 mmol/L Normal 6.0-15.0 [facility] Comment on above: Performed By: #### B MP ####[address] Sodium [Moles/volume] in Ser um or PlasmaOrdered By: Orquidea Cortez on 12-14-2024 Sodium [Moles/Vol] Sodium [Moles/volume ] in Serum or Plasma 136-145 [facility] Sodium [Moles/Vol] 140 mmol/L Normal 136-145 [facility] Comment on above: Performed By: #### B MP ####[address] Urea nitrogen [Mass/volume] in Serum or PlasmaOrdered By: Orquidea Cortez on 12-14-2024 Urea nitrogen [Mass/Vol] Urea nitrogen [Mass/volume] in Serum or Plasma High 7-25 [facility] Urea nitrogen [Mass/Vol] 30 mg/dL [facility] [facility] Comment on above: Performed By: #### B MP ####[address] WBC Auto (Bld) [#/Vol]Ordere d By: Brook Huddleston on 12-14-2024 WBC (Bld) [#/Vol] Leukocytes [#/volume ] in Blood by Automated count 4.1-10.5 [facility] Ambulatory Visit Summaryon 0 11-17-2024 Ambulatory Visit Summary Ambulatory Visit Summary PATSY CUNNINGHAM :1945 Visit Date:11/17/2024 Ambulatory Visit Instructions Your Diagnosis Prostate cancer Noncompliant bladder Hydroureteronephrosis Ureteral stricture Incomplete bladder emptying Recurrent UTI Kidney stones BPH with urinary obstruction Family history of prostate cancer in father Your Care Team Attending Physician - Diego RICKS, Orquidea Taylor Primary Care Physician - DON RICKS, HELEN This Is Your Medications List methenamine (methenamine hippurate 1 g oral tablet) nitrofurantoin (Macrobid 100 mg Cap) Contact prescribing physician if questions or concerns Non-Formulary Medication (D-mannose) Non-Formulary Medication (iron) aspirin (aspirin 81 mg Chew Tab) atorvastatin (atorvastatin 20 mg Tab) bifidobacterium-lactobacil huber (Probiotic + Colostrum) cholecalciferol (Vitamin D3 2000 intl units) cranberry (Cranberry) cyanocobalamin (Vitamin B-12 100 mcg oral tablet) docusate (Dulcolax Stool Softener) famotidine (famotidine 20 mg Tab) insulin glargine (Lantus insulin) insulin lispro (Humalog) multivitamin with iron (Gentle Iron oral capsule) oxybutynin (oxybutynin 10 mg ER Tab) Procedures Performed Change of suprapubic catheter (07/28/2024), Cystoscopic insertion of ureteric stent (06/04/2024), Transperineal needle biopsy of prostate (06/01/2024), Cystoscopic insertion of ureteric stent (02/03/2024), Cystoscopic replacement of ureteric stent (06/10/2023), ESWL of kidney (06/10/2023), Cystostomy and insertion of suprapubic tube (03/05/2023), Cystoscopic insertion of ureteric stent (12/10/2022), TURP - Transurethral resection of prostate (08/27/2022), Transurethral insertion of prostatic urethral lift implant (05/05/2022), Cystoscopic removal of ureteric stent (08/20/2012), Cystoscopic ureteroneocystostomy with insertion 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 Discharge Vitals Height 178 cm Height 70 in Weight 89.1 kg Weight 196.432 lb BMI 28.12 What to do next Scheduled Follow-Up Appointments Thursday 12:30 PM EDT With: Pratima Reno PA-C Where: [facility] [address] [place] [phone]- You Need to Schedule the Following Appointments Follow Up with Diego RICKS, Orquidea Taylor, OUSMANE, URO When: Where: Medications What How Much When Why Instructions Unchanged methenamine (methenamine hippurate 1 g oral tablet) 1 Tablets By Mouth 2 times a day Recurrent UTI Unchanged nitrofurantoin (Macrobid 100 mg Cap) 1 Capsules By Mouth 2 times a day take 1 cap morning of cath change and 12hrs after Unchanged aspirin (aspirin 81 mg Chew Tab) Chewed Every day Contact prescribing physician if questions or concerns Unchanged atorvastatin (atorvastatin 20 mg Tab) 1 Tablets By Mouth Every day Contact prescribing physician if questions or concerns Unchanged bifidobacterium-lactobacil huber (Probiotic + Colostrum) By Mouth Every day Contact prescribing physician if questions or concerns Unchanged cholecalciferol (Vitamin D3 2000 intl units) By Mouth Every day Contact prescribing physician if questions or concerns Unchanged cranberry (Cranberry) Contact prescribing physician if questions or concerns Unchanged cyanocobalamin (Vitamin B-12 100 mcg oral tablet) By Mouth Every day Contact prescribing physician if questions or concerns Unchanged docusate (Dulcolax Stool Softener) By Mouth Contact prescribing physician if questions or concerns [...] prescribing physician if questions or concerns Unchanged multivitamin with iron (Gentle Iron oral capsule) 1 Capsules By Mouth Every day Contact prescribing physician if questions or concerns Unchanged Non-Formulary Medication (D-mannose) Contact prescribing physician if questions or concerns Unchanged Non-Formulary Medication (iron) 25 Milligram Contact prescribing physician if questions or concerns Unchanged oxybutynin (oxybutynin 10 mg ER Tab) 1 Tablets By Mouth Every day Contact prescribing physician if questions or concerns Allergies Myrbetriq (Multiple open mouth wounds) gabapentin (Unknown, Rash) lisinopril (Unknown, DRY COUGH, Cough) Problems Ongoing - Any problem that you are currently receiving treatment for. Asymptomatic microscopic hematuria Bilateral hydronephrosis BPH with urinary obstruction Diabetes Dysuria Elevated cholesterol Family history of prostate cancer in father Glycosuria History of kidney stones HTN (hypertension) Hydroureter Hydroureteronephrosis Incomplete bladder emp (more content not included)... Normal [facility] Urology Office/Clinic Noteon 11-17-2024 Urology Office/Clinic Note Urology Office/Clinic Note Chief Complaint F/U HPI Staff 79 yr old male here for f/u after Cysto/bilateral RG pyelogram/bilateral ureteral stent exchange/SP tube exchange on 11/09/14 Previous dx: prostate cancer (active surveillance), noncompliant bladder, OAB, hydroureteronephrosis, ureteral stricture, incomplete bladder emptying, recurrent UTI, kidney stones, BPH with urinary obstruction, fam hx of prostate cancer in father. History of Present Illness Tests reviewed: reviewed external BMP, UCx. I have reviewed the previous health record information and history for this patient from Dr. Cortez I have reviewed and verified the staff [...] HPI. Physical Exam Vitals & Measurements HT: 178 cm HT: 70 in WT: 196.432 lb WT: 89.1 kg BMI: 28.12 General Appearance: alert, no distress, well nourished, well developed male. Assessment/Plan 79 year old male with complex urologic history s/p urolift, TURP, incidental finding of fav intermediate risk prostate cancer on active surveillance, found to have right distal ureteral stricture, non-compliant small bladder with BL VUR, acute on chronic renal failure. He was referred to Dr. Jessica Feliciano for further evaluation regarding recommendations of SP tube, stent, definitive care which is more invasive (cystectomy). Hx of multiple myeloma s/p tx, currently in remission. Sees Dr. Huddleston - no contraindications to proceed with any treatments or interventions. THERESA N/A, pt inactive. Follows with nephro, Dr. Crain. Pt here with his today. 1. Prostate cancer (C61: Malignant neoplasm of prostate) ACTIVE SURVEILLANCE cT1b Favorable intermediate risk prostate cancer, grade group 2 (6-10% GS4, 9% tissue resected involved) initial PSA 1.5 (11/2021). [3] PSA 04/11/20 - 2.62 10/29/20 - 2.84 12/05/21 - 1.49, PSAD 0.08 09/09/23 - 0.71 Prostate volume 17.5 g (pre-TURP). TURP 08/27/22 - Incidental finding of prostatic adenocarcinoma. Eucha 7 (3+4), GG2. Only 6-10% of Eucha 4 present. 7 of 78 prostate chips involved. No adverse pathology. Decipher testing 08/27/22 - High genomic risk. Not ideal surgical candidate (prostatectomy) due to age, comorbidities. [place] prostate [place] [facility] [place] 14 cc. Post intervention changes w/o definitive MRI evidence of prostate malignancy. Lesion seen involving the R ischial tuberosity measuring 1 cm. A bony metastatic lesion cannot be excluded (recent bone survey neg). Evaluation by [facility] also suggested continue active surveillance. S/p cysto, R RPG, stent exchange, SP tube exchange, TP prostate bx, TRUS 06/01/24 - G6 (3+3) x 1 core (PINEDA). HGPIN x 2 core (LPM, LPL). -Cont after surveillance, PSAs every 6 to 12 months 2. 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 S/p cysto, R RGP, stent exchange, Botox 100u, SPT exchange 09/23/23. Mild BL hydro 01/20/24 when admitted for MDR UTI and RINA. Pt does not feel Botox helped with bladder spasms, pt cont taking Oxybutynin bid. Discussed SNM given BL hydro vs cystectomy, pros and cons. Explained requirements to be a candidate for SNM, unlikely to help at this point. Educational pamphlets provided. Pt declined cystectomy previously No hx of back surgery. -Cont SPT and BL stents, see #3 and 4 3. Hydroureteronephrosis (N13.30: Unspecified hydronephrosis) Baseline very severe lower urinary tract symptoms. No improvement with course of anti-inflammatories, anticholinergics, or tamsulosin Pt d/c Myrbetriq due to side effects (mouth sores, fatigue). Reports mouth sores went away after stopping Myrbetriq, while still taking Fluconazole. Has trialed Trospium 20 mg. [1] UDS 10/20/22 - Voided 42 mL with a maximum flow rate of 5 ml/sec and a maximum detrusor recording of 14 cmH2O. The average flow rate was 2 ml/sec, with a remaining value of 77 mL representing post void residual. Overall very poor detrusor activity, small capacity. [3] S/p cysto, R RGP, stent exchange, Botox 100u, SPT exchange 09/23/23. S/p cysto, JOSE RPG, JOSE stent exchange, SPT change 11/09/24. See #2, 4 4. Uret (more content not included)... Normal [facility] Comment on above: Result Comment: Elec tronically Signed By: Orquidea Cortez MD\.br\Date and Time Signed: 11/17/24 11:21 EDT\.br\Electronically Co-Signed By: Aleah Starr.angel\Date and Time Co-Signed: 11/17/24 11:05 EDT A1C with Estimated Average Barron cade 11-11-2024 Glucose [Mass/Vol] 203 mg/dL Normal [facility] Comment on above: Result Comment: PERF ORMED BY:[address] [place], [place] [id number] MEDICAL DIRECTORDOMINIC FRANK M.D. Performed By: #### C MP, LIPID, A1C WT eA, TSH3, T4F ####[place] [id number] [place] [address] [facility] Alanine aminotransferase [En zymatic activity/volume] in Serum or PlasmaOrdered By: Helen Heath on 11-11-2024 ALT [Catalytic activity/Vol] Alanine aminotransferase [Enzymatic activity/volume] in Serum or Plasma [facility] ALT [Catalytic activity/Vol] 25 U/L Normal [facility] Comment on above: Performed By: #### C MP, LIPID, A1C WT eA, TSH3, T4F ####[address] [address] [facility] Albumin [Mass/volume] in Ser um or Plasma by Bromocresol green (BCG) dye binding methoOrdered By: Helen Heath on 11-11-2024 Albumin BCG dye [Mass/Vol] Albumin [Mass/volume] in Serum or Plasma by Bromocresol green (BCG) dye binding metho 3.5-5.7 [facility] Albumin BCG dye [Mass/Vol] 3.7 g/dL 3.5-5.7 [facility] Alkaline phosphatase [Enzyma tic activity/volume] in Serum or PlasmaOrdered By: Helen Heath on 11-11-2024 ALP [Catalytic activity/Vol] Alkaline phosphatase [Enzymatic activity/volume] in Serum or Plasma High 34-104 [facility] ALP [Catalytic activity/Vol] 129 U/L High 34-104 [facility] Comment on above: Performed By: #### C MP, LIPID, A1C WTH eA, TSH3, T4F ####[address] [address] [facility] Aspartate aminotransferase [ Enzymatic activity/volume] in Serum or PlasmaOrdered By: Helen Heath on 11-11-2024 AST [Catalytic activity/Vol] Aspartate aminotransferase [Enzymatic activity/volume] in Serum or Plasma - [facility] AST [Catalytic activity/Vol] 14 U/L Normal 39 [facility] Comment on above: Performed By: #### C MP, LIPID, A1C [facility], TSH3, T4F ####[facility] [id number] [place] [id number] [facility] Basophils Auto (Bld) [#/Vol] Ordered By: Brook Huddleston on 11-11-2024 Basophils (Bld) [#/Vol] Automated basophil count 0.0-0.2 [facility] Basophils/100 WBC Auto (Bld) Ordered By: Brook Huddleston on 11-11-2024 Basophils/100 WBC (Bld) Automated basophil % . [facility] Bilirubin.total [Mass/volume ] in Serum or PlasmaOrdered By: Helen Heath on 11-11-2024 Bilirubin [Mass/Vol] Bilirubin.total [Mass/volume] in Serum or Plasma 0.3-1.0 [facility] Bilirubin [Mass/Vol] 0.4 mg/dL Normal 0.3-1.0 [facility] Comment on above: Performed By: #### C MP, LIPID, A1C [facility], TSH3, T4F ####[facility] [place] [id number] [facility] Blood estimated average gluc ose determination by estimation from glycated hemoglobinOrdered By: Helen Heath on 11-11-2024 Average glucose Estimated from glycated hemoglobin (Bld) [Mass/Vol] Glucose mean value [Mass/volume] in Blood Estimated from glycated hemoglobin [facility] Average glucose Estimated from glycated hemoglobin (Bld) [Mass/Vol] 203 mg/dL [facility] C Urineon 11-11-2024 Bacteria identified Cx Nom (U) Microbiology PROCEDURE: Urine Culture [R1] SOURCE: U Cath BODY SITE: COLLECTED DATE/TIME: 11/07/2024 16:45 EDT RECEIVED DATE/TIME: 11/08/2024 17:55 EDT START DATE/TIME: 11/08/2024 17:55 EDT FREE TEXT SOURCE: Nati MEJIA, ANTONIO-C, Nati MEJIA, ANTONIO-C, Makayla X Makayla X FINAL REPORTS Final Report [] Verified Date/Time: 11/11/2024 07:08 EDT 20,000 cfu/ml Jessica albicans Presumptive Performing Locations R1: This test was performed at: [facility], [address] [place] [address], [phone] , [place], Normal [facility] Comment on above: Performed By: #### 2 [id number] #### [facility] [address] [place] [id number] CBC W Auto Differential pane l (Bld)on 11-11-2024 Basophils (Bld) [#/Vol] 0 10*3/uL 0.0 - 0.2 10*3/uL [facility] Basophils/100 WBC Manual cnt (Syn fld) 0.4 % . [facility] Eosinophils (Bld) [#/Vol] 0.3 10*3/uL 0.0 - 0.45 10*3/uL [facility] Eosinophils/100 WBC Manual cnt (Syn fld) 3.2 % . [facility] Erythrocyte distribution width (RBC) [Ratio] 15.9 % High 12.0 - 14.8 % [facility] Hematocrit (Bld) [Volume fraction] 31.6 % Low 38.8 - 50.0 % [facility] Hemoglobin (Bld) [Mass/Vol] 10.7 g/dL Low 13.0 - 17.0 g/dL [facility] Interpretation and review of laboratory results Abnormal [facility] Lymphocytes (Bld) [#/Vol] 1.7 10*3/uL 1.00 - 4.8 10*3/uL [facility] Lymphocytes/100 WBC Manual cnt (Syn fld) 16.5 % . [facility] MCH (RBC) [Entitic mass] 35.2 pg 27.5 - 35.2 pg [facility] MCHC (RBC) [Mass/Vol] 33.8 g/dL 32.5 - 35.6 g/dL [facility] MCV (RBC) [Entitic vol] 104 fL High 83.5 - 101 fL [facility] Monocytes (Bld) [#/Vol] 0.5 10*3/uL 0.0 - 0.8 10*3/uL [facility] Monocytes+Macrophages/1 00 WBC Manual cnt (Syn fld) 5.3 % . [facility] Neutrophils (Bld) [#/Vol] 7.7 10*3/uL 1.8 - 7.7 10*3/uL [facility] Neutrophils/100 WBC Manual cnt (Syn fld) 74.6 % . [facility] NRBC 0 /100{WBC} 0 - 0.5 /100{WBC} [facility] Platelet mean volume (Bld) [Entitic vol] 7.8 fL 6.6 - 10.1 fL [facility] Platelets (Bld) [#/Vol] 262 10*3/uL 150 - 450 10*3/uL [facility] RBC LM.HPF (Urine sed) [#/Area] 3.04 10*6/uL Low 3.90 - 5.60 10*6/uL [facility] WBC (Bld) [#/Vol] 10.3 10*3/uL 4.1 - 10.5 10*3/uL [facility] WBC LM.HPF (Urine sed) [#/Area] 10.3 10*3/uL 4.1 - 10.5 10*3/uL [facility] Calcium [Mass/volume] in Ser um or PlasmaOrdered By: Helen Heath on 11-11-2024 Calcium [Mass/Vol] Calcium [Mass/volume ] in Serum or Plasma Low 8.6-10.3 [facility] Calcium [Mass/Vol] 8.5 mg/dL Low 8.6-10.3 [facility] Comment on above: Performed By: #### C MP, LIPID, A1C WTH eA, TSH3, T4F ####[facility] [id number] [place] [id number] [facility] Carbon dioxide, total [Moles /volume] in Serum or PlasmaOrdered By: Helen Heath on 11-11-2024 CO2 [Moles/Vol] Carbon dioxide, tota l [Moles/volume] in Serum or Plasma Low 21.0-31.0 [facility] CO2 [Moles/Vol] 20.6 mmol/L Low 21.0-31.0 [facility] Comment on above: Performed By: #### C MP, LIPID, A1C [facility] eA, TSH3, T4F ####[facility] [id number] [place] [id number] [facility] Chloride [Moles/volume] in S valeria or PlasmaOrdered By: Helen Heath on 11-11-2024 Chloride [Moles/Vol] Chloride [Moles/vol ume] in Serum or Plasma High 98-107 [facility] Chloride [Moles/Vol] 112 mmol/L High 98-107 [facility] Comment on above: Performed By: #### C MP, LIPID, A1C [facility], TSH3, T4F ####[facility] [id number] [place] [id number] [facility] Cholesterol [Mass/volume] in Serum or PlasmaOrdered By: Helen Heath on 11-11-2024 Cholesterol [Mass/Vol] Cholesterol [Mass /volume] in Serum or Plasma Low 140-200 [facility] Comment on above: Chol less than 200 m g/dl low riskChol 201-239 mg/dl borderline riskChol 240 mg/dl and greater high risk Cholesterol [Mass/Vol] 108 mg/dL Low 140-200 [facility] Comment on above: Result Comment: Chol less than 200 mg/dl low risk Chol 201-239 mg/dl borderline risk Chol 240 mg/dl and greater high risk Performed By: #### C MP, LIPID, A1C [facility], TSH3, T4F ####[facility] [id number] [place] [id number] [facility] Cholesterol in HDL [Mass/vol ume] in Serum or PlasmaOrdered By: Helen Heath on 11-11-2024 Cholesterol in HDL [Mass/Vol] Serum or plasma high density lipoprotein (HDL) cholesterol measurement [facility] Comment on above: HDL CHOL ATP-III CLA SSIFICATION Cardiovascular RiskHDL > or equal to 60 mg/dL LOWHDL < 40 mg/dL HIGH Cholesterol in HDL [Mass/Vol] 33 mg/dL Normal [facility] Comment on above: Result Comment: HDL CHOL ATP-III CLASSIFICATION Cardiovascular Risk HDL > or equal to 60 mg/dL LOW HDL < 40 mg/dL HIGH Performed By: #### C MP, LIPID, A1C W[facility] eA, TSH3, T4F ####[address] Cholesterol in LDL Calc [Mas s/Vol]Ordered By: Helen Heath on 11-11-2024 Cholesterol in LDL [Mass/Vol] Cholesterol in LDL [Mass/volume] in Serum or Plasma by calculation 0-100 [facility] Comment on above: LDL ATP III CLASSIFI CATIONLDL less than 100 mg/dL OptimalLDL 100-129 mg/dL Near or above optimalLDL 130-159 mg/dL Borderline highLDL 160-189 mg/dL HighLDL greater than 189 mg/dL Very high Cholesterol in LDL [Mass/Vol] 59 mg/dL 0-100 [facility] Cholesterol in VLDL Calc [Ma ss/Vol]Ordered By: Helen Heath on 11-11-2024 Cholesterol in VLDL [Mass/Vol] Cholesterol in VLDL [Mass/volume] in Serum or Plasma by calculation [facility] Cholesterol in VLDL [Mass/Vol] 15 mg/dL [facility] Complete Blood Count Auto Di ffon 11-11-2024 Basophils (Bld) [#/Vol] 0.0 10*3/uL Normal 0.0-0.2 [facility] Comment on above: Result Comment: PERF ORMED BY:[address] [place], [place] [phone] MEDICAL DIRECTORDOMINIC FRANK M.D. Performed By: #### C BC ####[address] Basophils/100 WBC (Bld) 0.4 % Normal . [facility] Comment on above: Performed By: #### C BC ####[address] Eosinophils (Bld) [#/Vol] 0.3 10*3/uL Normal 0.0-0.45 [facility] Comment on above: Performed By: #### C BC ####[address] Eosinophils/100 WBC (Bld) 3.2 % Normal . [facility] Comment on above: Performed By: #### C BC ####[address] Erythrocyte distribution width (RBC) [Ratio] 15.9 % High 12.0-14.8 [facility] Comment on above: Performed By: #### C BC ####[address] Hematocrit (Bld) [Volume fraction] 31.6 % Low 38.8-50.0 [facility] Comment on above: Performed By: #### C BC ####[address] Hemoglobin (Bld) [Mass/Vol] 10.7 g/dL Low 13.0-17.0 [facility] Comment on above: Performed By: #### C BC ####[address] Lymphocytes (Bld) [#/Vol] 1.7 10*3/uL Normal 1.00-4.8 [facility] Comment on above: Performed By: #### C BC ####[address] Lymphocytes/100 WBC (Bld) 16.5 % Normal . [facility] Comment on above: Performed By: #### C BC ####[address] MCH (RBC) [Entitic mass] 35.2 pg Normal 27.5-35.2 [facility] Comment on above: Performed By: #### C BC ####[address] MCV (RBC) [Entitic vol] 104.0 fL High 83.5-101 [facility] Comment on above: Performed By: #### C BC ####[address] Mean Corpuscular HGB Conc 33.8 g/dL Normal 32.5-35.6 [facility] Comment on above: Performed By: #### C BC ####[address] Monocytes (Bld) [#/Vol] 0.5 10*3/uL Normal 0.0-0.8 [facility] Comment on above: Performed By: #### C BC ####[address] Monocytes/100 WBC (Bld) 5.3 % Normal . [facility] Comment on above: Performed By: #### C BC ####[address] Neutrophils (Bld) [#/Vol] 7.7 10*3/uL Normal 1.8-7.7 [facility] Comment on above: Performed By: #### C BC ####[address] Neutrophils/100 WBC (Bld) 74.6 % Normal . [facility] Comment on above: Performed By: #### C BC ####[address] NRBC% 0.0 /100{WBC} Normal 0-0.5 [facility] Comment on above: Performed By: #### C BC ####[address] Platelet mean volume (Bld) [Entitic vol] 7.8 fL Normal 6.6-10.1 [facility] Comment on above: Performed By: #### C BC ####[place] [id number] [facility] Platelets (Bld) [#/Vol] 262 10*3/uL Normal 150-450 [facility] Comment on above: Performed By: #### C BC ####[address] RBC (Bld) [#/Vol] 3.04 10*6/uL Low 3.90-5.60 [facility] Comment on above: Performed By: #### C BC ####[address] WBC (Bld) [#/Vol] 10.3 10*3/uL Normal 4.1-10.5 [facility] Comment on above: Performed By: #### C BC ####[address] Comprehensive Metabolic Pane mana 11-11-2024 Albumin [Mass/Vol] 3.7 g/dL Normal 3.5-5.7 [facility] Comment on above: Performed By: #### C MP, LIPID, A1C WTH eA, TSH3, T4F ####[address] Estimated GFR 16.571 mL/Min Normal [facility] Comment on above: Performed By: #### C MP, LIPID, A1C WTH eA, TSH3, T4F ####[address] Creatinine [Mass/volume] in Serum or PlasmaOrdered By: Helen Heath on 11-11-2024 Creatinine [Mass/Vol] Creatinine [Mass/v olume] in Serum or Plasma High 0.70-1.30 [facility] Creatinine [Mass/Vol] 3.58 mg/dL High 0.70-1.30 [facility] Comment on above: Performed By: #### C MP, LIPID, A1C WTH eA, TSH3, T4F ####[address] Eosinophils Auto (Bld) [#/Vo l]Ordered By: Brook Huddleston on 11-11-2024 Eosinophils (Bld) [#/Vol] Automated eosinophil count 0.0-0.45 [facility] Eosinophils/100 WBC Auto (Bl d)Ordered By: Brook Huddleston on 11-11-2024 Eosinophils/100 WBC (Bld) Automated eosinophil % . [facility] Erythrocyte distribution wid th Auto (RBC) [Ratio]Ordered By: Brook Huddleston on 11-11-2024 Erythrocyte distribution width (RBC) [Ratio] Erythrocyte distribution width [Ratio] by Automated count High 12.0-14.8 [facility] Globulin Calc (S) [Mass/Vol] Ordered By: Helen Heath on 11-11-2024 Globulin (S) [Mass/Vol] Serum globulin m easurement by calculation (mass/volume) [facility] Glucose [Mass/volume] in Ser um or PlasmaOrdered By: Helen Heath on 11-11-2024 Glucose [Mass/Vol] Glucose [Mass/volume ] in Serum or Plasma 70-100 [facility] Comment on above: ADA recommended refe rence rangeRandom Glucose Reference Range is dependent on time and content of last meal. Glucose of more than 200 mg/dL in a nonstressed, ambulatory subject supports the diagnosis of Diabetes Mellitus. Glucose [Mass/Vol] 73 mg/dL Normal 70-100 [facility] Comment on above: Result Comment: Ignacio om Glucose Reference Range is dependent on time and content of last meal. Glucose of more than 200 mg/dL in a nonstressed, ambulatory subject supports the diagnosis of Diabetes Mellitus. ADA recommended reference range Performed By: #### C MP, LIPID, A1C WTH eA, TSH3, T4F ####[facility] [id number] Hematocrit Auto (Bld) [Volum e fraction]Ordered By: Brook Huddleston on 11-11-2024 Hematocrit (Bld) [Volume fraction] Hematocrit [Volume Fraction] of Blood by Automated count Low 38.8-50.0 [facility] Hemoglobin A1c/Hemoglobin.to nat in BloodOrdered By: Helen Heath on 11-11-2024 HbA1c (Bld) [Mass fraction] Hemoglobin A1c percentage High 4.3-5.6 [facility] Comment on above: Increased risk for d iabetes: 5.7 - 6.4diabetes: >6.4glycemic control for adults with diabetes: <7.0 HbA1c (Bld) [Mass fraction] 8.7 % High 4.3-5.6 [facility] Comment on above: Result Comment: Incr eased risk for diabetes: 5.7 - 6.4 diabetes: >6.4 glycemic control for adults with diabetes: <7.0 Performed By: #### C MP, LIPID, A1C WTH eA, TSH3, T4F ####[facility] [place] [address] [facility] Hemoglobin [Mass/volume] in BloodOrdered By: Brook Huddleston on 11-11-2024 Hemoglobin (Bld) [Mass/Vol] Hemoglobin [Mass/volume] in Blood Low 13.0-17.0 [facility] Leukocytes [#/volume] correc lizbet for nucleated erythrocytes in Blood by Automated counOrdered By: Brook Huddleston on 11-11-2024 WBC corrected for nucl RBC Auto (Bld) [#/Vol] Leukocytes [#/volume] corrected for nucleated erythrocytes in Blood by Automated coun 4.1-10.5 [facility] Lipid Panelon 11-11-2024 LDL Cholesterol,Calculated 59 mg/dL Normal 0-100 [facility] Comment on above: Result Comment: LDL ATP III CLASSIFICATION LDL less than 100 mg/dL Optimal LDL 100-129 mg/dL Near or above optimal LDL 130-159 mg/dL Borderline high LDL 160-189 mg/dL High LDL greater than 189 mg/dL Very high Performed By: #### C MP, LIPID, [facility], T[facility], T4F ####[facility] [place] [id number] [facility] Triglyceride w/Reflex 79 mg/dL Normal 0-149 [facility] Comment on above: Result Comment: TRIG ATP III CLASSIFICATION TRIG less than 150 mg/dL Normal TRIG 150-199 mg/dL Borderline high TRIG 200-500 mg/dL High TRIG greater than 500 mg/dL Very high Standard traceable to the Center for Disease Conrtrol and Prevention (CDC) test method. Performed By: #### C MP, LIPID, A1C WT eA, TSH3, T4F ####[facility] [place] [address] [facility] VLDL CHOLESTEROL 15 mg/dL Normal [facility] Comment on above: Performed By: #### C MP, LIPID, A1C WTH eA, TSH3, T4F ####[facility] [place] [address] [facility] Lymphocytes Auto (Bld) [#/Vo l]Ordered By: Brook Huddleston on 11-11-2024 Lymphocytes (Bld) [#/Vol] Lymphocytes [#/volume] in Blood by Automated count 1.00-4.8 [facility] Lymphocytes/100 WBC Auto (Bl d)Ordered By: Brook Huddleston on 11-11-2024 Lymphocytes/100 WBC (Bld) Lymphocytes/100 leukocytes in Blood by Automated count . [facility] MCH Auto (RBC) [Entitic mass ]Ordered By: Brook Huddleston on 11-11-2024 MCH (RBC) [Entitic mass] MCH [Entitic mass] by Automated count 27.5-35.2 [facility] MCHC Auto (RBC) [Mass/Vol]Or dered By: Brook Huddleston on 11-11-2024 MCHC (RBC) [Mass/Vol] MCHC [Mass/volume] by Automated count 32.5-35.6 [facility] MCV Auto (RBC) [Entitic vol] Ordered By: Brook Huddleston on 11-11-2024 MCV (RBC) [Entitic vol] MCV [Entitic vol ume] by Automated count High 83.5-101 [facility] Monocytes Auto (Bld) [#/Vol] Ordered By: Brook Huddleston on 11-11-2024 Monocytes (Bld) [#/Vol] Automated blood monocyte count 0.0-0.8 [facility] Monocytes/100 WBC Auto (Bld) Ordered By: Brook Huddleston on 11-11-2024 Monocytes/100 WBC (Bld) Automated monocyte % . [facility] Neutrophils Auto (Bld) [#/Vo l]Ordered By: Brook Huddleston on 11-11-2024 Neutrophils (Bld) [#/Vol] Neutrophils [#/volume] in Blood by Automated count 1.8-7.7 [facility] Neutrophils/100 WBC Auto (Bl d)Ordered By: Brook Huddleston on 11-11-2024 Neutrophils/100 WBC (Bld) Automated neutrophil % . [facility] No Panel InformationOrdered By: Helen Heath on 11-11-2024 Estimated GFR (CKD-EPI) 16.571 mL/Min [facility] Creatinine Clearance (Chem N/A [facility] 16.571 mL/Min [facility] N/A [facility] Nucleated erythrocytes [Pres ence] in Blood by Automated countOrdered By: Brook Huddleston on 11-11-2024 Nucleated RBC Auto Ql (Bld) Nucleated erythrocytes [Presence] in Blood by Automated count 0-0.5 [facility] Platelet mean volume Auto (B ld) [Entitic vol]Ordered By: Brook Huddleston on 11-11-2024 Platelet mean volume (Bld) [Entitic vol] Platelet mean volume [Entitic volume] in Blood by Automated count 6.6-10.1 [facility] Platelets Auto (Bld) [#/Vol] Ordered By: Brook Huddleston on 11-11-2024 Platelets (Bld) [#/Vol] Platelets [#/vol ume] in Blood by Automated count 150-450 [facility] Potassium [Moles/volume] in Serum or PlasmaOrdered By: Helen Heath on 11-11-2024 Potassium [Moles/Vol] Potassium [Moles/v olume] in Serum or Plasma 3.5-5.1 [facility] Potassium [Moles/Vol] 4.6 mmol/L Normal 3.5-5.1 [facility] Comment on above: Performed By: #### C MP, LIPID, A1C WT eA, TSH3, T4F ####[facility] [address] Protein [Mass/volume] in Ser um or PlasmaOrdered By: Helen Heath on 11-11-2024 Protein [Mass/Vol] Protein [Mass/volume ] in Serum or Plasma 6.4-8.9 [facility] Protein [Mass/Vol] 6.8 g/dL Normal 6.4-8.9 [facility] Comment on above: Performed By: #### C MP, LIPID, A1C WTH eA, TSH3, T4F ####[facility] [place] [id number] [facility] RBC Auto (Bld) [#/Vol]Ordere d By: Brook Huddleston on 11-11-2024 RBC (Bld) [#/Vol] Erythrocytes [#/volu me] in Blood by Automated count Low 3.90-5.60 [facility] Serum globulin measurement b y calculation (mass/volume)Ordered By: Helen Heath on 11-11-2024 Globulin (S) [Mass/Vol] 3.1 g/dL Normal [facility] Comment on above: Performed By: #### C MP, LIPID, A1C WT eA, TSH3, T4F ####[place] [id number] [address] Serum or plasma albumin/glob ulin mass ratioOrdered By: Helen Heath on 11-11-2024 Albumin/Globulin [Mass ratio] Serum or plasma albumin/globulin mass ratio [facility] Albumin/Globulin [Mass ratio] 1.2 {ratio} Normal [facility] Comment on above: Performed By: #### C MP, LIPID, A1C [facility] eA, TSH, T4F ####[address] Serum or plasma anion gap de terminationOrdered By: Helen Heath on 11-11-2024 Anion gap [Moles/Vol] Serum or plasma an ion gap determination 6.0-15.0 [facility] Anion gap [Moles/Vol] 13.0 mmol/L Normal 6.0-15.0 [facility] Comment on above: Performed By: #### C MP, LIPID, A1C WT eA, TSH3, T4F ####[address] Serum or plasma total choles terol/high density lipoprotein (HDL) cholesterol mass ratOrdered By: Helen Heath on 11-11-2024 Cholesterol.total/Remedios sterol in HDL [Mass ratio] Serum or plasma total cholesterol/high density lipoprotein (HDL) cholesterol mass rat <5.0 [facility] Cholesterol.total/Remedios sterol in HDL [Mass ratio] 3.3 {ratio} Normal <5.0 [facility] Comment on above: Performed By: #### C MP, LIPID, A1C WT eA, TSH3, T4F ####[address] Sodium [Moles/volume] in Ser um or PlasmaOrdered By: Helen Heath on 03-28-2025 Sodium [Moles/Vol] Sodium [Moles/volume ] in Serum or Plasma 136-145 [facility] Sodium [Moles/Vol] 141 mmol/L Normal 136-145 [facility] Comment on above: Performed By: #### C MP, LIPID, A1C WTH eA, TSH3, T4F ####[facility] [place] [address] [facility] Thyrotropin [Units/volume] i n Serum or PlasmaOrdered By: Helen Heath on 11-11-2024 TSH Qn Thyrotropin [Units/v olume] in Serum or Plasma Low 0.45-5.33 [facility] TSH Qn 0.11 m[IU]/L Low 0.45-5.33 [facility] Comment on above: Result Comment: PERF ORMED BY:[address] [place], [place] [id number] MEDICAL DIRECTORDOMNIIC FRANK M.D. Performed By: #### C MP, LIPID, A1C WTH eA, TSH3, T4F ####[place] [id number] [place] [address] [facility] Thyroxine (T4) free [Mass/vo lume] in Serum or PlasmaOrdered By: Helen Heath on 11-11-2024 Free T4 [Mass/Vol] Thyroxine (T4) free [Mass/volume] in Serum or Plasma High 0.61-1.12 [facility] Free T4 [Mass/Vol] 1.13 ng/dL High 0.61-1.12 [facility] Comment on above: Performed By: #### C MP, LIPID, A1C WTH eA, TSH3, T4F ####[address] [address] [facility] Triglyceride [Mass/volume] i n Serum or PlasmaOrdered By: Helen Heath on 11-11-2024 Triglyceride [Mass/Vol] Triglyceride [Ma ss/volume] in Serum or Plasma 0-149 [facility] Comment on above: TRIG ATP III CLASSIF ICATIONTRIG less than 150 mg/dL NormalTRIG 150-199 mg/dL Borderline highTRIG 200-500 mg/dL High TRIG greater than 500 mg/dL Very highStandard traceable to the Center for Disease Conrtrol and Prevention (CDC) test method. Triglyceride [Mass/Vol] 79 mg/dL 0-149 [facility] Urea nitrogen [Mass/volume] in Serum or PlasmaOrdered By: Helen Heath on 11-11-2024 Urea nitrogen [Mass/Vol] Urea nitrogen [Mass/volume] in Serum or Plasma High 7-25 [facility] Urea nitrogen [Mass/Vol] 52 mg/dL High -25 [facility] Comment on above: Performed By: #### C MP, LIPID, A1C WTH eA, TSH3, T4F ####[facility] [id number] [place] [id number] [facility] WBC Auto (Bld) [#/Vol]Ordere d By: Brook Huddleston on 11-11-2024 WBC (Bld) [#/Vol] Leukocytes [#/volume ] in Blood by Automated count 4.1-10.5 [facility] Urine Cultureon 11-09-2024 Bacteria identified Cx Nom (U) ORGANISM: Jessica albicans (O:CANALB) Waterfall Count >100,000 PERFORMED BY: [facility] [address] [place] [address] PATHOLOGIST EARLY BREASTFEEDING CARE SPECIALIST DOMINIC FRANK M.D. Normal [facility] Comment on above: Performed By: #### C UU ####[facility] [id number] [place] [id number] [facility] Urine cultureOrdered By: Ashlie Cortez on 11-09-2024 Bacteria identified Cx Nom (U) Abnormal [facility] Ambulatory Visit Summaryon 0 11-07-2024 Ambulatory Visit Summary Ambulatory Visit Summary GENE PATSY G :1945 Visit Date:11/07/2024 Ambulatory Visit Instructions Your Diagnosis Recurrent UTI Your Care Team Attending Physician - EFREN RICKS, Santi Almazan Primary Care Physician - HELEN HEATH MD This Is Your Medications List aspirin (aspirin 81 mg Chew Tab) atorvastatin (atorvastatin 20 mg Tab) bifidobacterium-lactobacil huber (Probiotic + Colostrum) cholecalciferol (Vitamin D3 2000 intl units) ciprofloxacin (Cipro 500 mg Tab) cyanocobalamin (Vitamin B-12 100 mcg oral tablet) doxycycline (doxycycline hyclate 100 mg Cap) famotidine (famotidine 20 mg Tab) insulin glargine (Lantus insulin) insulin lispro (Humalog) methenamine (methenamine hippurate 1 g oral tablet) multivitamin with iron (Gentle Iron oral capsule) nitrofurantoin (Macrobid 100 mg Cap) oxybutynin (oxybutynin 10 mg ER Tab) Procedures Performed Change of suprapubic catheter (07/28/2024), Cystoscopic insertion of ureteric stent (06/04/2024), Transperineal needle biopsy of prostate (06/01/2024), Cystoscopic insertion of ureteric stent (02/03/2024), Cystoscopic replacement of ureteric stent (06/10/2023), ESWL [...] to do next Scheduled Follow-Up Appointments Thursday 12:30 PM EDT With: Pratima Reno PA-C Where: [facility] [address] [place] [address]- Medications What How Much When Why Instructions Unchanged aspirin (aspirin 81 mg Chew Tab) Chewed Every day Unchanged atorvastatin (atorvastatin 20 mg Tab) 1 Tablets By Mouth Every day Unchanged bifidobacterium-lactobacil huber (Probiotic + Colostrum) By Mouth Every day Unchanged cholecalciferol (Vitamin D3 2000 intl units) By Mouth Every day Unchanged ciprofloxacin (Cipro 500 mg Tab) 1 Tablets By Mouth Every 12 hours Duration: 3 Days Unchanged cyanocobalamin (Vitamin B-12 100 mcg oral tablet) By Mouth Every day Unchanged doxycycline (doxycycline hyclate 100 mg Cap) 1 Capsules By Mouth 2 times a day Duration: 7 Days may substitute hyclate for monohydrate based on availability Unchanged famotidine (famotidine 20 mg Tab) 1 Tablets By Mouth Once a day (at bedtime) Unchanged insulin glargine (Lantus insulin) 25 Units Subcutaneous Once a day (at bedtime) Unchanged insulin lispro (Humalog) 8 Units Subcutaneous Unchanged methenamine (methenamine hippurate 1 g oral tablet) 1 Tablets By Mouth 2 times a day Recurrent UTI Unchanged multivitamin with iron (Gentle Iron oral capsule) 1 Capsules By Mouth Every day Unchanged nitrofurantoin (Macrobid 100 mg Cap) 1 Capsules By Mouth 2 times a day take 1 cap morning of cath change and 12hrs after Unchanged oxybutynin (oxybutynin 10 mg ER Tab) 1 Tablets By Mouth Every day Allergies Myrbetriq (Multiple open mouth wounds) gabapentin (Unknown, Rash) lisinopril (Unknown, DRY COUGH, Cough) Problems Ongoing - Any problem that you are currently receiving treatment for. Asymptomatic microscopic hematuria Bilateral hydronephrosis BPH with urinary obstruction Diabetes Dysuria Elevated cholesterol Family history of prostate cancer in father Glycosuria History of kidney stones HTN (hypertension) Hydroureter Hydroureteronephrosis Incomplete bladder emptying Kidney stones Microhematuria Multiple myeloma in remission Nocturia Noncompliant bladder OAB (overactive bladder) Prostate cancer Recurrent UTI Rheumatoid arthritis Ureteral stricture UTI (urinary tract infection) UTI symptoms Weak urine stream Patient Survey You may receive a survey via text or e-mail asking about your office visit. Please share your experience with us by completing your survey. We appreciate your feedback and thank you for choosing us for your care. Normal [facility] Urine Cultureon 10-17-2024 Bacteria identified Cx Nom (U) Normal [facility] Comment on above: Performed By: #### C UU ####[facility] [id number] [place] [address] [facility] Urine cultureOrdered By: Ashlie Cortez on 10-17-2024 Bacteria identified Cx Nom (U) Abnormal [facility] Urology Office/Clinic Noteon 10-03-2024 Urology Office/Clinic Note Urology Office/Clinic Note HPI Staff SPT exchange, discuss further UTI prevention History of Present Illness I have reviewed and verified the staff HPI to be accurate for this encounter. Portions of this record may have been created with voice recognition artificial intelligence software, specifically [email or web address], [employer] and or [email or web address]. Substitutions may have occurred due to the inherent limitations of voice recognition and artificial intelligence software. Physical Exam General: Well developed, well nourished, in no acute distress. Genitourinary: Flank Pain: none. Bladder: nonpalpable. Assessment/Plan 1. Recurrent UTI (N39.0: Urinary tract infection, site not specified) UCx: 05/28/23 - >100k Enterobacter cloacae, but was supposed to be tx'd with Levaquin 500mg qd x7d. 06/01/23 - >100k Enterobacter cloacae, pt started Levequin therapy as indicated with prior ucx. 07/02/23 - 10k Staphylococcus epidermis, no abx given due to SPT adjustment at that time working. 08/16/24 - 30k Enterococcus faecalis, Jessica albicans Presumptive 09/12/24 - 25k staph aureus, 5k entercoccus faecalis Previously was to start genamicin blader irrigations qd for infection control. However, these proved to be costly as well as the pt having a lot of reservations about being able to complete irrigations. Discussed with the patient starting [id number] UTI prevention supplements including d-mannose, Cranberry and Probiotics to help decrease the number of urinary tract infections. Explained that D-mannose works by the bacteria clinging to the sugars vs the bladder wall, as well as the Cranberry making it harder for bacteria to cling to the bladder wall, and probiotic by increasing the number of good bacteria. Additionally, we did discuss use of methenamine therapy, dose, SEs. Pt/ would like to trial this. Will need to stop temporarily for acute infection tx, then resume after completion. Pt verbalizes understanding. Urine pH 5.5 eGFR 09/27/23 - .726 does follow w/ Dr Barrett, if eGFR declines <30, will need to stop methenamine -start methenamine 1g BID, rx sent to pharm Ordered: methenamine, 1 gm = 1 tab(s), Oral, BID, # 60 tab(s), Refills(s) 6, Pharmacy: [id number], 171, cm, 08/31/24 11:19:00 EST, Height/Length Dosing, 94, kg, 08/31/24 11:19:00 EST, Weight Dosing 2. Noncompliant bladder (N31.9: Neuromuscular dysfunction of bladder, unspecified) SPT exchanged in office today, see adhoc -rto 3 weeks for next exchange Follow-up No qualifying data available Patient Education Urinary Tract Infection, Adult Problem List/Past Medical History Ongoing Asymptomatic microscopic hematuria Bilateral hydronephrosis BPH with urinary obstruction Diabetes Dysuria Elevated cholesterol Family history of prostate cancer in father Glycosuria History of kidney stones HTN (hypertension) Hydroureter Hydroureteronephrosis Incomplete bladder emptying Kidney stones Microhematuria Multiple myeloma in remission Nocturia Noncompliant bladder OAB (overactive bladder) Prostate cancer Recurrent UTI Rheumatoid arthritis Ureteral stricture UTI (urinary tract infection) UTI symptoms Weak urine stream Historical No qualifying data Procedure/Surgical History Change of suprapubic catheter (07/28/2024), Cystoscopic insertion of ureteric stent (06/04/2024), Transperineal needle biopsy of prostate (06/01/2024), Cystoscopic insertion of ureteric stent (02/03/2024), Cystoscopic replacement of ureteric stent (06/10/2023), ESWL of kidney (06/10/2023), Cystostomy and insertion of suprapubic tube (03/05/2023), Cystoscopic insertion of ureteric stent (12/10/2022), TURP - Transurethral resection of prostate (08/27/2022), Transurethral insertion of prostatic urethral lift implant (05/05/2022), Cystoscopic removal of ureteric stent (08/20/2012), Cystoscopic ureteroneocystostomy with insertion 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 Medications aspirin 81 mg Chew Tab, Chewed, Daily atorvastatin 20 mg Tab, 20 mg= 1 tab(s), Oral, Daily famotidine 20 mg Tab, 20 mg= 1 tab(s), Oral, Once a day (at bedtime) Gentle Iron oral capsule, 1 cap(s), Oral, Daily Humalog, 8 unit(s), SubCutaneous Lantus insulin, 25 unit(s), SubCutaneous, Once a day (at bedtime) Macrobid 100 mg Cap, 100 mg= 1 cap(s), Oral, BID, 1 refills methenamine hippurate 1 g oral tablet, 1 gm= 1 tab(s), Oral, BID, 6 refills oxybutynin 10 mg ER Tab, 10 mg= 1 tab(s), Oral, Daily Probiotic + Colostrum, Oral, Daily Vitamin B-12 100 mcg oral tablet, Oral, Daily Vitamin D3 2000 intl units, Oral, Daily Allergies Myrbetriq (Multiple open mouth wounds) gabapentin (Unknown, Rash) lisinopril (Unknown, DRY COUGH, Cough) Social History Alcohol Past. Beer. 1-2 times per year., 06/20/2024 Substance Abuse Never., 06/20/2024 Tobacco quit 28 years Tobacco Use:. Never Smokeless T (more content not included)... Normal [facility] Comment on above: Result Comment: Elec tronically Signed By: CARLEY Damian APRN, Makayla Soriano\.br\Date and Time Signed: 10/03/24 16:19 EST IMMUNOFIXATION, (JOSE C), URINE on 09-29-2024 IMMUNOFIXATION, (JOSE C), URINE Comment: . [facility] Comment on above: Presence of monoclon al protein is unclear at this time. Suggest repeat in 3 to 6 months if clinically indicated. Performed at: [address] [id number] Orthotic/Prosthetic Practitioner: Melchor Agrawal PhD, Phone: [phone] No Panel Informationon 09-29 [facility] PROTEIN ELECTRO, RANDOM URIN Yovany 09-29-2024 ALBUMIN, URINE 44.5 % . [facility] [id number], URINE 3 % . [facility] [id number], URINE 10.8 % . [facility] BETA GLOBULIN, URINE 19.6 % . [facility] GAMMA GLOBULIN, URINE 22.1 % . [facility] M-SPIKE % Comment: Not Observed [facility] Comment on above: UPE shows an asymmet rical gamma. Refer to urine JOSE C for further evaluation. PLEASE NOTE: Comment . [facility] Comment on above: Protein electrophore sis scan will follow via computer, mail, or revenue stamp cutter delivery. Performed at: [facility] - [facility] [id number] Orthotic/Prosthetic Practitioner: Melchor Agrawal PhD, Phone: [phone] Protein (U) [Mass/Vol] 170.1 mg/dL Not Estab. N [facility] 24 hour urine albumin/total protein ratio by electrophoresisOrdered By: Brook Huddleston on 09-27-2024 Albumin Elph (24H U) [Mass fraction] Albumin/Protein.total in 24 hour Urine by Electrophoresis . [facility] Albumin Elph (24H U) [Mass fraction] 44.5 % . [facility] 24 hour urine gamma globulin /total protein ratio by electrophoresisOrdered By: Brook Huddleston on 09-27-2024 Gamma globulin Elph (24H U) [Mass fraction] Gamma globulin/Protein.total in 24 hour Urine by Electrophoresis . [facility] Gamma globulin Elph (24H U) [Mass fraction] 22.1 % . [facility] 24 hour urine protein monocl onal/total protein by electrophoresisOrdered By: Brook Huddleston on 09-27-2024 Protein.monoclonal Elph (24H U) [Mass fraction] Protein.monoclonal/Protein .total in 24 hour Urine by Electrophoresis Not Observed [facility] Comment on above: UPE shows an asymmet rical gamma. Refer to urine JOSE C for further evaluation. Protein.monoclonal Elph (24H U) [Mass fraction] Comment: % Not Observed [facility] Comment on above: UPE shows an asymmet rical gamma. Refer to urine JOSE C for further evaluation. Alanine aminotransferase [En zymatic activity/volume] in Serum or PlasmaOrdered By: Price Crain on 09-27-2024 ALT [Catalytic activity/Vol] Alanine aminotransferase [Enzymatic activity/volume] in Serum or Plasma [facility] Albumin [Mass/volume] in Ser um or Plasma by Bromocresol green (BCG) dye binding methoOrdered By: Price Crain on 09-27-2024 Albumin BCG dye [Mass/Vol] Albumin [Mass/volume] in Serum or Plasma by Bromocresol green (BCG) dye binding metho 3.5-5.7 [facility] Alkaline phosphatase [Enzyma tic activity/volume] in Serum or PlasmaOrdered By: Price Crain on 09-27-2024 ALP [Catalytic activity/Vol] Alkaline phosphatase [Enzymatic activity/volume] in Serum or Plasma High 34-104 [facility] Aspartate aminotransferase [ Enzymatic activity/volume] in Serum or PlasmaOrdered By: Price Crain on 09-27-2024 AST [Catalytic activity/Vol] Aspartate aminotransferase [Enzymatic activity/volume] in Serum or Plasma 13-39 [facility] Basophils Auto (Bld) [#/Vol] Ordered By: Price Crain on 09-27-2024 Basophils (Bld) [#/Vol] Automated basophil count 0.0-0.2 [facility] Basophils/100 WBC Auto (Bld) Ordered By: Price Crain on 09-27-2024 Basophils/100 WBC (Bld) Automated basophil % . [facility] Bilirubin.total [Mass/volume ] in Serum or PlasmaOrdered By: Price Crain on 09-27-2024 Bilirubin [Mass/Vol] Bilirubin.total [Mass/volume] in Serum or Plasma 0.3-1.0 [facility] Calcium [Mass/volume] in Ser um or PlasmaOrdered By: Price Crain on 09-27-2024 Calcium [Mass/Vol] Calcium [Mass/volume ] in Serum or Plasma 8.6-10.3 [facility] Carbon dioxide, total [Moles /volume] in Serum or PlasmaOrdered By: Price Crain on 09-27-2024 CO2 [Moles/Vol] Carbon dioxide, tota l [Moles/volume] in Serum or Plasma 21.0-31.0 [facility] Chloride [Moles/volume] in S valeria or PlasmaOrdered By: Price Crain on 09-27-2024 Chloride [Moles/Vol] Chloride [Moles/vol ume] in Serum or Plasma High 98-107 [facility] Complete Blood Count Auto Di ffon 09-27-2024 Basophils (Bld) [#/Vol] 0.0 10*3/uL Normal 0.0-0.2 [facility] Comment on above: Result Comment: PERF ORMED BY:[place] [address] [address] [place], [place] [phone] MEDICAL DIRECTORDOMINIC FRANK M.D. Performed By: #### C MP, CBC ####[address] Basophils/100 WBC (Bld) 0.1 % Normal . [facility] Comment on above: Performed By: #### C MP, CBC ####[address] Eosinophils (Bld) [#/Vol] 0.3 10*3/uL Normal 0.0-0.45 [facility] Comment on above: Performed By: #### C MP, CBC ####[address] Eosinophils/100 WBC (Bld) 4.6 % Normal . [facility] Comment on above: Performed By: #### C MP, CBC ####[address] Erythrocyte distribution width (RBC) [Ratio] 17.0 % High 12.0-14.8 [facility] Comment on above: Performed By: #### C MP, CBC ####[address] Hematocrit (Bld) [Volume fraction] 31.1 % Low 38.8-50.0 [facility] Comment on above: Performed By: #### C MP, CBC ####[address] Hemoglobin (Bld) [Mass/Vol] 10.7 g/dL Low 13.0-17.0 [facility] Comment on above: Performed By: #### C MP, CBC ####[address] Lymphocytes (Bld) [#/Vol] 1.1 10*3/uL Normal 1.00-4.8 [facility] Comment on above: Performed By: #### C MP, CBC ####[address] Lymphocytes/100 WBC (Bld) 16.9 % Normal . [facility] Comment on above: Performed By: #### C MP, CBC ####[address] MCH (RBC) [Entitic mass] 36.0 pg High 27.5-35.2 [facility] Comment on above: Performed By: #### C MP, CBC ####[address] MCV (RBC) [Entitic vol] 104.9 fL High 83.5-101 [facility] Comment on above: Performed By: #### C MP, CBC ####[address] Mean Corpuscular HGB Conc 34.3 g/dL Normal 32.5-35.6 [facility] Comment on above: Performed By: #### C MP, CBC ####[address] Monocytes (Bld) [#/Vol] 0.4 10*3/uL Normal 0.0-0.8 [facility] Comment on above: Performed By: #### C MP, CBC ####[address] Monocytes/100 WBC (Bld) 6.3 % Normal . [facility] Comment on above: Performed By: #### C MP, CBC ####[address] Neutrophils (Bld) [#/Vol] 4.7 10*3/uL Normal 1.8-7.7 [facility] Comment on above: Performed By: #### C MP, CBC ####[address] Neutrophils/100 WBC (Bld) 72.1 % Normal . [facility] Comment on above: Performed By: #### C MP, CBC ####[address] NRBC% 0.1 /100{WBC} Normal 0-0.5 [facility] Comment on above: Performed By: #### C MP, CBC ####[address] Platelet mean volume (Bld) [Entitic vol] 8.0 fL Normal 6.6-10.1 [facility] Comment on above: Performed By: #### C MP, CBC ####[address] Platelets (Bld) [#/Vol] 183 10*3/uL Normal 150-450 [facility] Comment on above: Performed By: #### C MP, CBC ####[address] RBC (Bld) [#/Vol] 2.97 10*6/uL Low 3.90-5.60 [facility] Comment on above: Performed By: #### C MP, CBC ####[address] WBC (Bld) [#/Vol] 6.5 10*3/uL Normal 4.1-10.5 [facility] Comment on above: Performed By: #### C MP, CBC ####[address] Comprehensive Metabolic Pane mana 09-27-2024 Albumin [Mass/Vol] 3.9 g/dL Normal 3.5-5.7 [facility] Comment on above: Performed By: #### C MP, CBC ####[address] Albumin/Globulin [Mass ratio] 1.6 {ratio} Normal [facility] Comment on above: Performed By: #### C MP, CBC ####[address] ALP [Catalytic activity/Vol] 110 U/L High 34-104 [facility] Comment on above: Performed By: #### C MP, CBC ####[address] ALT [Catalytic activity/Vol] 22 U/L Normal 7-52 [facility] Comment on above: Performed By: #### C MP, CBC ####[address] Anion gap [Moles/Vol] 9.7 mmol/L Normal 6.0-15.0 [facility] Comment on above: Performed By: #### C MP, CBC ####[address] AST [Catalytic activity/Vol] 22 U/L Normal 13-39 [facility] Comment on above: Performed By: #### C MP, CBC ####[address] Bilirubin [Mass/Vol] 0.4 mg/dL Normal 0.3-1.0 [facility] Comment on above: Performed By: #### C MP, CBC ####[address] Calcium [Mass/Vol] 8.6 mg/dL Normal 8.6-10.3 [facility] Comment on above: Performed By: #### C MP, CBC ####[address] Chloride [Moles/Vol] 108 mmol/L High 98-107 [facility] Comment on above: Performed By: #### C MP, CBC ####[address] CO2 [Moles/Vol] 23.4 mmol/L Normal 21.0-31.0 [facility] Comment on above: Performed By: #### C MP, CBC ####[address] Creatinine [Mass/Vol] 2.14 mg/dL High 0.70-1.30 [facility] Comment on above: Performed By: #### C MP, CBC ####[address] Creatinine Clr Calc Pharmacy 31.59 Normal [facility] Comment on above: Result Comment: PERF ORMED BY:[place] [address] [address] [place], [place] [phone] MEDICAL DIRECTORDOMINIC FRANK M.D. Performed By: #### C MP, CBC ####[address] [address] [facility] Estimated GFR 30.726 mL/Min Normal [facility] Comment on above: Performed By: #### C MP, CBC ####[place] [id number] [facility] Globulin (S) [Mass/Vol] 2.5 g/dL Normal T he [facility] Comment on above: Performed By: #### C MP, CBC ####[place] [id number] [facility] Glucose [Mass/Vol] 126 mg/dL High 70-100 [facility] Comment on above: Result Comment: [facility] Glucose Reference Range is dependent on time and content of last meal. Glucose of more than 200 mg/dL in a nonstressed, ambulatory subject supports the diagnosis of Diabetes Mellitus. ADA recommended reference range Performed By: #### C MP, CBC ####[place] [id number] [facility] Potassium [Moles/Vol] 4.1 mmol/L Normal 3.5-5.1 [facility] Comment on above: Performed By: #### C MP, CBC ####[place] [id number] [facility] Protein [Mass/Vol] 6.4 g/dL Normal 6.4-8.9 [facility] Comment on above: Performed By: #### C MP, CBC ####[place] [id number] [facility] Sodium [Moles/Vol] 137 mmol/L Normal 136-145 [facility] Comment on above: Performed By: #### C MP, CBC ####[place] [id number] [facility] Urea nitrogen [Mass/Vol] 29 mg/dL High 7-25 [facility] Comment on above: Performed By: #### C MP, CBC ####[facility] [id number] [place] [id number] [facility] Creatinine [Mass/volume] in Serum or PlasmaOrdered By: Price Crain on 09-27-2024 Creatinine [Mass/Vol] Creatinine [Mass/v olume] in Serum or Plasma High 0.70-1.30 [facility] Creatinine [Mass/volume] in UrineOrdered By: Price Crain on 09-27-2024 Creatinine (U) [Mass/Vol] Creatinine [Mass/volume] in Urine [facility] Comment on above: No reference range e stablished Eosinophils Auto (Bld) [#/Vo l]Ordered By: Price Crain on 09-27-2024 Eosinophils (Bld) [#/Vol] Automated eosinophil count 0.0-0.45 [facility] Eosinophils/100 WBC Auto (Bl d)Ordered By: Price Crain on 09-27-2024 Eosinophils/100 WBC (Bld) Automated eosinophil % . [facility] Erythrocyte distribution wid th Auto (RBC) [Ratio]Ordered By: Price Crain on 09-27-2024 Erythrocyte distribution width (RBC) [Ratio] Erythrocyte distribution width [Ratio] by Automated count High 12.0-14.8 [facility] Folate [Mass/volume] in Seru m or PlasmaOrdered By: Price Crain on 09-27-2024 Folate [Mass/Vol] Folate [Mass/volume] in Serum or Plasma >5.9 [facility] Comment on above: Folate reference ran ge: >5.9 ng/mlThe WHO technical consultation on folate and vitamin [id number] has determined that folate concentrations lessthan 4 ng/ml are considered deficient. Free K+L LT Chains, Qn, Son 09-27-2024 Free [place] Light Chains, S 41.5 mg/L High 3.3-19.4 [facility] Comment on above: Performed By: #### I FE,URINE, KAPPA, IMM RADHA, SPE ####[facility] ,#### LDH ####[facility] [id number] Free [place] Light Chains, S 31.4 mg/L High 5.7-26.3 [facility] Comment on above: Performed By: #### I FE,URINE, KAPPA, IMM RADHA, SPE ####[facility] ,#### LDH ####[address] [place]/Lambda Ratio, S 1.32 Normal 0.26-1.65 [facility] Comment on above: Result Comment: Perf ormed at: [facility] - [facility] [address] [id number] Orthotic/Prosthetic Practitioner: Melchor Agrawal PhD, Phone: [phone] BY:[address] [place], [place] [phone] MEDICAL DIRECTORDOMINIC FRANK M.D. Performed By: #### I FE,URINE, KAPPA, IMM RADHA, SPE ####[facility] ,#### LDH ####[address] Globulin Calc (S) [Mass/Vol] Ordered By: Price Crain on 09-27-2024 Globulin (S) [Mass/Vol] Serum globulin m easurement by calculation (mass/volume) [facility] Glucose [Mass/volume] in Ser um or PlasmaOrdered By: Price Crain on 09-27-2024 Glucose [Mass/Vol] Glucose [Mass/volume ] in Serum or Plasma High 70-100 [facility] Comment on above: ADA recommended refe rence rangeRandom Glucose Reference Range is dependent on time and content of last meal. Glucose of more than 200 mg/dL in a nonstressed, ambulatory subject supports the diagnosis of Diabetes Mellitus. Hematocrit Auto (Bld) [Volum e fraction]Ordered By: Price Crain on 09-27-2024 Hematocrit (Bld) [Volume fraction] Hematocrit [Volume Fraction] of Blood by Automated count Low 38.8-50.0 [facility] Hemoglobin [Mass/volume] in BloodOrdered By: Price Crain on 09-27-2024 Hemoglobin (Bld) [Mass/Vol] Hemoglobin [Mass/volume] in Blood Low 13.0-17.0 [facility] Immunofixation for UrineOrde red By: Brook Huddleston on 09-27-2024 Interpretation Immunofixation (U) [Interp] Immunofixation for Urine . [facility] Comment on above: Presence of monoclon al protein is unclear at this time. Suggestrepeat in 3 to 6 months if clinically indicated.Performed at: [facility] [id number] Director: Melchor Agrawal PhD, Phone: [phone] Interpretation Immunofixation (U) [Interp] Comment: . [facility] Comment on above: Presence of monoclon al protein is unclear at this time. Suggestrepeat in 3 to 6 months if clinically indicated.Performed at: [facility] [id number] Director: Melchor Agrawal PhD, Phone: [phone] Immunofixation, (JOSE C), Urine on 09-27-2024 Immunofixation, (JOSE C), Urine Comment: Normal . [facility] Comment on above: Result Comment: Pres ence of monoclonal protein is unclear at this time. Suggest repeat in 3 to 6 months if clinically indicated. Performed at: [facility] [address] [id number] Orthotic/Prosthetic Practitioner: Melchor Agrawal PhD, Phone: [phone] BY:[facility] [place], [place] [phone] MEDICAL DIRECTORDOMINIC FRANK M.D. Performed By: #### I FE,URINE, KAPPA, IMM RADHA, SPE ####[facility] ,#### LDH ####[facility] [place] [address] [facility] Immunoglobulins A/G/M, Qn, S yue 09-27-2024 Immunoglobulin A, Serum 202 mg/dL Normal 61-437 [facility] Comment on above: Performed By: #### I FE,URINE, KAPPA, IMM RADHA, SPE ####[facility] ,#### LDH ####[address] Immunoglobulin G 1053 mg/dL Normal 603-1613 [facility] Comment on above: Performed By: #### I FE,URINE, KAPPA, IMM RADHA, SPE ####[facility] ,#### LDH ####[address] Immunoglobulin M, Serum 58 mg/dL Normal 15-143 [facility] Comment on above: Result Comment: Perf ormed at: [facility] [address] [id number] Orthotic/Prosthetic Practitioner: Melchor Agrawal PhD, Phone: [phone] Performed By: #### I FE,URINE, KAPPA, IMM RADHA, SPE ####[facility] ,#### LDH ####[address] LDH Lactate Dehydrogenaseon 09-27-2024 LDH Lactate Dehydrogenase 140 U/L Normal 140-271 [facility] Comment on above: Result Comment: PERF ORMED BY:[address] [place], [place] [phone] MEDICAL DIRECTORDOMINIC FRANK M.D. Performed By: #### I FE,URINE, KAPPA, IMM RADHA, SPE ####[facility] ,#### LDH ####[address] LDH Lactate to pyruvate reac tion [Catalytic activity/Vol]on 09-27-2024 LDH LACTATE DEHYDROGENASE 140 U/L 140 - 271 U/L [facility] Lactate dehydrogenase [Enzym atic activity/volume] in Serum or Plasma by Lactate to pyOrdered By: Brook Huddleston on 09-27-2024 LDH Lactate to pyruvate reaction [Catalytic activity/Vol] Lactate dehydrogenase [Enzymatic activity/volume] in Serum or Plasma by Lactate to py 140-271 [facility] LDH Lactate to pyruvate reaction [Catalytic activity/Vol] 140 U/L 140-271 [facility] Leukocytes [#/volume] correc lizbet for nucleated erythrocytes in Blood by Automated counOrdered By: Price Crain on 09-27-2024 WBC corrected for nucl RBC Auto (Bld) [#/Vol] Leukocytes [#/volume] corrected for nucleated erythrocytes in Blood by Automated coun 4.1-10.5 [facility] Lymphocytes Auto (Bld) [#/Vo l]Ordered By: Price Crain on 09-27-2024 Lymphocytes (Bld) [#/Vol] Lymphocytes [#/volume] in Blood by Automated count 1.00-4.8 [facility] Lymphocytes/100 WBC Auto (Bl d)Ordered By: Price Crain on 09-27-2024 Lymphocytes/100 WBC (Bld) Lymphocytes/100 leukocytes in Blood by Automated count . [facility] MCH Auto (RBC) [Entitic mass ]Ordered By: Price Crain on 09-27-2024 MCH (RBC) [Entitic mass] MCH [Entitic mass] by Automated count High 27.5-35.2 [facility] MCHC Auto (RBC) [Mass/Vol]Or dered By: Price Crain on 09-27-2024 MCHC (RBC) [Mass/Vol] MCHC [Mass/volume] by Automated count 32.5-35.6 [facility] MCV Auto (RBC) [Entitic vol] Ordered By: Price Crain on 09-27-2024 MCV (RBC) [Entitic vol] MCV [Entitic vol ume] by Automated count High 83.5-101 [facility] Magnesiumon 09-27-2024 Magnesium [Mass/Vol] 2.0 mg/dL Normal 1.9-2.7 [facility] Comment on above: Performed By: #### V [id number], URIC, [id number], PHOS, MG, PTH ####[facility] [id number] Magnesium [Mass/volume] in S valeria or PlasmaOrdered By: Price Crain on 09-27-2024 Magnesium [Mass/Vol] Magnesium [Mass/vol ume] in Serum or Plasma 1.9-2.7 [facility] Monocytes Auto (Bld) [#/Vol] Ordered By: Price Crain on 09-27-2024 Monocytes (Bld) [#/Vol] Automated blood monocyte count 0.0-0.8 [facility] Monocytes/100 WBC Auto (Bld) Ordered By: Price Crain on 09-27-2024 Monocytes/100 WBC (Bld) Automated monocyte % . [facility] Neutrophils Auto (Bld) [#/Vo l]Ordered By: Price Crain on 09-27-2024 Neutrophils (Bld) [#/Vol] Neutrophils [#/volume] in Blood by Automated count 1.8-7.7 [facility] Neutrophils/100 WBC Auto (Bl d)Ordered By: Price Crain on 09-27-2024 Neutrophils/100 WBC (Bld) Automated neutrophil % . [facility] No Panel InformationOrdered By: Brook Huddleston on 09-27-2024 Protein Electrophoresis M-Anselmo Not observed g/dL Not Observed [facility] Protein Electrophoresis Note Comment . [facility] Comment on above: Protein electrophore sis scan will follow via computer,mail, or revenue stamp cutter delivery.Performed at: [employer] [address] [id number] Director: Melchor Agrawal PhD, Phone: [phone] Urine Random Prot Electrophor Note Comment . [facility] Comment on above: Protein electrophore sis scan will follow via computer,mail, or revenue stamp cutter delivery.Performed at: [facility] [id number] Director: Melchor Agrawal PhD, Phone: [phone] Comment . [facility] No Panel InformationOrdered By: Price Crain on 09-27-2024 Estimated GFR (CKD-EPI) 30.726 mL/Min [facility] Creatinine Clearance (Chem 31.59 [facility] Nucleated erythrocytes [Pres ence] in Blood by Automated countOrdered By: Price Crain on 09-27-2024 Nucleated RBC Auto Ql (Bld) Nucleated erythrocytes [Presence] in Blood by Automated count 0-0.5 [facility] Parathyrin.intact [Mass/volu me] in Serum or PlasmaOrdered By: Price Crain on 09-27-2024 Parathyrin.intact [Mass/Vol] Parathyrin.intact [Mass/volume] in Serum or Plasma [facility] Parathyroid Hormone Intacton 09-27-2024 Parathyroid Hormone Intact 63.9 pg/mL Normal [facility] Comment on above: Result Comment: PERF ORMED BY:[address] [place], [place] [phone] MEDICAL DIRECTORDOMINIC FRANK M.D. Performed By: #### V [id number], URIC, [id number], PHOS, MG, PTH ####[id number] [place] [address] [facility] Phosphate [Mass/volume] in S valeria or PlasmaOrdered By: Price Crain on 09-27-2024 Phosphate [Mass/Vol] Phosphate [Mass/vol ume] in Serum or Plasma 2.5-4.5 [facility] Phosphoruson 09-27-2024 Phosphate [Mass/Vol] 3.7 mg/dL Normal 2.5-4.5 [facility] Comment on above: Performed By: #### V [id number], URIC, [id number], PHOS, MG, PTH ####[address] [address] [facility] Platelet mean volume Auto (B ld) [Entitic vol]Ordered By: Price Crain on 09-27-2024 Platelet mean volume (Bld) [Entitic vol] Platelet mean volume [Entitic volume] in Blood by Automated count 6.6-10.1 [facility] Platelets Auto (Bld) [#/Vol] Ordered By: Price Crain on 09-27-2024 Platelets (Bld) [#/Vol] Platelets [#/vol ume] in Blood by Automated count 150-450 [facility] Potassium [Moles/volume] in Serum or PlasmaOrdered By: Price Crain on 09-27-2024 Potassium [Moles/Vol] Potassium [Moles/v olume] in Serum or Plasma 3.5-5.1 [facility] Protein Creat Ratio Ur Rando mon 09-27-2024 Creatinine, Urine (Random) 89.00 mg/dL Normal [facility] Comment on above: Result Comment: No r eference range established Performed By: #### P ROCRERAT ####[address] [address] [facility] Protein (U) [Mass/Vol] 180 mg/dL High 0-9 [facility] Comment on above: Performed By: #### P ROCRERAT ####[address] [address] [facility] Urine Protein/Creatinine Ratio 2022 mg/g{Cre} High 0-200 [facility] Comment on above: Result Comment: PERF ORMED BY:[address] [place], [place] [phone] MEDICAL DIRECTORDOMINIC FRANK M.D. Performed By: #### P ROCRERAT ####[address] [address] [facility] Protein Electro, Random Urin yovany 09-27-2024 Albumin, Urine 44.5 % Normal . [facility] Comment on above: Performed By: #### U PE RAND ####[facility] , Hjjvx-3-Ijvhyjen, Urine 3.0 % Normal . [facility] Comment on above: Performed By: #### U PE RAND ####[facility] , Tdeuv-1-Jlbrotyl, Urine 10.8 % Normal . [facility] Comment on above: Performed By: #### U PE RAND ####[facility] , Beta Globulin, Urine 19.6 % Normal . [facility] Comment on above: Performed By: #### U PE RAND ####[facility] , Gamma Globulin, Urine 22.1 % Normal . [facility] Comment on above: Performed By: #### U PE RAND ####[facility] , M-Anselmo % Comment: Normal Not Observed [facility] Comment on above: Result Comment: UPE shows an asymmetrical gamma. Refer to urine JOSE C for further evaluation. Performed By: #### U PE RAND ####[facility] , Please Note: Comment Normal . [facility] Comment on above: Result Comment: Prot ein electrophoresis scan will follow via computer, mail, or revenue stamp cutter delivery. Performed at: [facility] [address] [id number] Orthotic/Prosthetic Practitioner: Melcohr Agrawal PhD, Phone: [phone] BY:[address], [place] [phone] MEDICAL DIRECTORMONISA FRANK M.D. Performed By: #### U PE RAND ####[facility] , Protein Electrophoresis, Ser umon 09-27-2024 Albumin [Mass/Vol] 3.4 g/dL Normal 2.9-4.4 [facility] Comment on above: Performed By: #### I FE,URINE, KAPPA, IMM RADHA, SPE ####[facility] ,#### LDH ####[address] Albumin/Globulin [Mass ratio] 1.1 {ratio} Normal 0.7-1.7 [facility] Comment on above: Performed By: #### I FE,URINE, KAPPA, IMM RADHA, SPE ####[facility] ,#### LDH ####[address] Nahti-6-Kfqshgge 0.2 g/dL Normal 0.0-0.4 [facility] Comment on above: Performed By: #### I FE,URINE, KAPPA, IMM RADHA, SPE ####[facility] ,#### LDH ####[address] Pritv-6-Ixawsvld 0.8 g/dL Normal 0.4-1.0 [facility] Comment on above: Performed By: #### I FE,URINE, KAPPA, IMM RADHA, SPE ####[facility] ,#### LDH ####[address] Beta Globulin 0.9 g/dL Normal 0.7-1.3 [facility] Comment on above: Performed By: #### I FE,URINE, KAPPA, IMM RADHA, SPE ####[facility] ,#### LDH ####[address] Gamma Globulin 1.1 g/dL Normal 0.4-1.8 [facility] Comment on above: Performed By: #### I FE,URINE, KAPPA, IMM RADHA, SPE ####[facility] ,#### LDH ####[address] Globulin (S) [Mass/Vol] 3.0 g/dL Normal 2.2-3.9 [facility] Comment on above: Performed By: #### I FE,URINE, KAPPA, IMM RADHA, SPE ####[facility] ,#### LDH ####[address] M-Anselmo Not Observed Normal Not Observed [facility] Comment on above: Performed By: #### I FE,URINE, KAPPA, IMM RADHA, SPE ####[facility] ,#### LDH ####[address] Protein [Mass/Vol] 6.4 g/dL Normal 6.0-8.5 [facility] Comment on above: Performed By: #### I FE,URINE, KAPPA, IMM RADHA, SPE ####[facility] ,#### LDH ####[facility] [id number] SPE-Note Comment Normal . [facility] Comment on above: Result Comment: Prot ein electrophoresis scan will follow via computer, mail, or revenue stamp cutter delivery. Performed at: [facility] [address] [id number] Orthotic/Prosthetic Practitioner: Melchor Agrawal PhD, Phone: [phone] Performed By: #### I FE,URINE, KAPPA, IMM RADHA, SPE ####[facility] ,#### LDH ####[id number] Protein [Mass/volume] in Ser um or PlasmaOrdered By: Price Crain on 09-27-2024 Protein [Mass/Vol] Protein [Mass/volume ] in Serum or Plasma 6.4-8.9 [facility] Protein [Mass/volume] in Uri neOrdered By: Price Crain on 09-27-2024 Protein (U) [Mass/Vol] Protein [Mass/vol ume] in Urine High 0-9 [facility] RBC Auto (Bld) [#/Vol]Ordere d By: Price Crain on 09-27-2024 RBC (Bld) [#/Vol] Erythrocytes [#/volu me] in Blood by Automated count Low 3.90-5.60 [facility] Serum free kappa light chain measurementOrdered By: Brook Huddleston on 09-27-2024 Immunoglobulin light chains.kappa.free (S) [Mass/Vol] Immunoglobulin light chains.kappa.free [Mass/volume] in Serum High 3.3-19.4 [facility] Serum globulin measurement ( mass/volume)Ordered By: Brook Huddleston on 09-27-2024 Globulin (S) [Mass/Vol] Serum globulin m easurement (mass/volume) 2.2-3.9 [facility] Serum immunoglobulin free ka ppa light chains/immunoglobulin free lambda light chainsOrdered By: Brook Huddleston on 09-27-2024 Immunoglobulin light chains.kappa.free/Immun oglobulin light chains.lambda.free (S) [Mass ratio] Immunoglobulin light chains.kappa.free/Immunogl obulin light chains.lambda.free [Mass 0.26-1.65 [facility] Comment on above: Performed at: [facility] [address] [id number] Director: Melchor Agrawal PhD, Phone: [phone] Serum or plasma IgA measurem ent (mass/volume)Ordered By: Brook Huddleston on 09-27-2024 IgA [Mass/Vol] IgA [Mass/volume] in Serum or Plasma 61-437 [facility] Serum or plasma IgG measurem ent (mass/volume)Ordered By: Brook Huddleston on 09-27-2024 IgG [Mass/Vol] IgG [Mass/volume] in Serum or Plasma 603-1613 [facility] Serum or plasma IgM measurem ent (mass/volume)Ordered By: Brook Huddleston on 09-27-2024 IgM [Mass/Vol] IgM [Mass/volume] in Serum or Plasma 15-143 [facility] Comment on above: Performed at: [facility] [id number] [place], [place] [id number] Director: Melchor Agrawal PhD, Phone: [phone] Serum or plasma albumin reese urement (mass/volume)Ordered By: Brook Huddleston on 09-27-2024 Albumin [Mass/Vol] Albumin [Mass/volume ] in Serum or Plasma 2.9-4.4 [facility] Serum or plasma albumin/glob ulin mass ratioOrdered By: Brook Huddleston on 09-27-2024 Albumin/Globulin [Mass ratio] Serum or plasma albumin/globulin mass ratio 0.7-1.7 [facility] Serum or plasma albumin/glob ulin mass ratioOrdered By: Price Crain on 09-27-2024 Albumin/Globulin [Mass ratio] Serum or plasma albumin/globulin mass ratio [facility] Serum or plasma alpha 1 glob ulin measurement by electrophoresis (mass/volume)Ordered By: Brook Huddleston on 09-27-2024 Alpha 1 globulin Elph [Mass/Vol] Serum or plasma alpha 1 globulin measurement by electrophoresis (mass/volume) 0.0-0.4 [facility] Serum or plasma alpha 2 glob ulin measurement by electrophoresis (mass/volume)Ordered By: Brook Huddleston on 09-27-2024 Alpha 2 globulin Elph [Mass/Vol] Serum or plasma alpha 2 globulin measurement by electrophoresis (mass/volume) 0.4-1.0 [facility] Serum or plasma anion gap de terminationOrdered By: Price Crain on 09-27-2024 Anion gap [Moles/Vol] Serum or plasma an ion gap determination 6.0-15.0 [facility] Serum or plasma beta globuli n measurement by electrophoresis (mass/volume)Ordered By: Brook Huddleston on 09-27-2024 Beta globulin Elph [Mass/Vol] Serum or plasma beta globulin measurement by electrophoresis (mass/volume) 0.7-1.3 [facility] Serum or plasma gamma globul in measurement by electrophoresis (mass/volume)Ordered By: Brook Huddleston on 09-27-2024 Gamma globulin Elph [Mass/Vol] Serum or plasma gamma globulin measurement by electrophoresis (mass/volume) 0.4-1.8 [facility] Serum or plasma immunoglobul in free lambda light chains measurement (mass/volume)Ordered By: Brook Huddleston on 09-27-2024 Immunoglobulin light chains.lambda.free [Mass/Vol] Immunoglobulin light chains.lambda.free [Mass/volume] in Serum or Plasma High 5.7-26.3 [facility] Serum total protein measurem entOrdered By: Brook Huddleston on 09-27-2024 Protein [Mass/Vol] Protein [Mass/volume ] in Serum or Plasma 6.0-8.5 [facility] Sodium [Moles/volume] in Ser um or PlasmaOrdered By: Price Crain on 09-27-2024 Sodium [Moles/Vol] Sodium [Moles/volume ] in Serum or Plasma 136-145 [facility] Urate [Mass/volume] in Serum or PlasmaOrdered By: Price Crain on 09-27-2024 Urate [Mass/Vol] Urate [Mass/volume] in Serum or Plasma 4.4-7.6 [facility] Urea nitrogen [Mass/volume] in Serum or PlasmaOrdered By: Price Crain on 09-27-2024 Urea nitrogen [Mass/Vol] Urea nitrogen [Mass/volume] in Serum or Plasma High 7-25 [facility] Uric Acidon 09-27-2024 Urate [Mass/Vol] 5.2 mg/dL Normal 4.4-7.6 [facility] Comment on above: Performed By: #### V [id number], URIC, [id number], PHOS, MG, PTH ####[facility] [address] Urine alpha 1 globulin/total protein by electrophoresisOrdered By: Brook Huddleston on 09-27-2024 Alpha 1 globulin Elph (U) [Mass fraction] Urine alpha 1 globulin/total protein by electrophoresis . [facility] Alpha 1 globulin Elph (U) [Mass fraction] 3.0 % . [facility] Urine alpha 2 globulin/total protein ratio by electrophoresisOrdered By: Brook Huddleston on 09-27-2024 Alpha 2 globulin Elph (U) [Mass fraction] Urine alpha 2 globulin/total protein ratio by electrophoresis . [facility] Alpha 2 globulin Elph (U) [Mass fraction] 10.8 % . [facility] Urine beta globulin measurem ent by electrophoresis (mass/volume)Ordered By: Brook Huddleston on 09-27-2024 Beta globulin Elph (U) [Mass/Vol] Urine beta globulin measurement by electrophoresis (mass/volume) . [facility] Beta globulin Elph (U) [Mass/Vol] 19.6 % . [facility] Urine protein measurement (m ass/volume)Ordered By: Brook Huddleston on 09-27-2024 Protein (U) [Mass/Vol] Protein [Mass/vol ume] in Urine Not Estab. [facility] Protein (U) [Mass/Vol] 170.1 mg/dL Normal Not Estab. [facility] Comment on above: Performed By: #### U PE RAND ####[facility] , Urine protein/creatinine rat ioOrdered By: Price Crain on 09-27-2024 Protein/Creatinine (U) [Ratio] Urine protein/creatinine ratio High 0-200 [facility] Vit. B12/Folate Profileon Cobalamin (Vitamin B12) [Mass/Vol] 1082 pg/mL High 180-914 [facility] Comment on above: Performed By: #### V [id number], URIC, [id number], PHOS, MG, PTH ####[address] [place] [address] [facility] Folate 18.4 ng/mL Normal >5.9 [facility] Comment on above: Result Comment: Christi te reference range: >5.9 ng/ml The WHO technical consultation on folate and vitamin b12 deficiencies has determined that folate concentrations less than 4 ng/ml are considered deficient. Performed By: #### V [id number], URIC, [id number], PHOS, MG, PTH ####[address] [place] [address] [facility] Vitamin B12 ser/plasOrdered By: Price Crain on 09-27-2024 Cobalamin (Vitamin B12) [Mass/Vol] Vitamin B12 ser/plas High 180-914 [facility] Vitamin D 25 Hydroxy Totalon 09-27-2024 Vitamin D 25 Hydroxy Total 67.3 ng/mL Normal 30-100 [facility] Comment on above: Result Comment: ALEJA MIN D STATUS 25([place])VITAMIN D RANGE (ng/mL) Deficient <20 Insufficient 20 to <30 Sufficient 30 to 100 Reference: Dieudonne MF,Brendon NC, Estrella CARTER, et al. Evaluation,treatment, and prevention of vitamin D deficiency; an Endocrine Society clinical practice guideline. JCEM. 2010; 96(7):1911-30.PERFORMED BY:[address] [place] [place], [place] [phone] MEDICAL DIRECTORDOMINIC FRANK M.D. Performed By: #### V [id number], URIC, [id number], PHOS, MG, PTH ####[address] [place] [address] [facility] Vitamin D+Metabolites [Mass/ volume] in Serum or PlasmaOrdered By: Price Crain on 09-27-2024 Vitamin D+Metabolites [Mass/Vol] Vitamin D+Metabolites [Mass/volume] in Serum or Plasma 30-100 [facility] Comment on above: VITAMIN D STATUS 25( [place])VITAMIN D RANGE (ng/mL) Deficient <20 Insufficient 20 to <30Sufficient 30 to 100Reference: Dieudonne MF,Brendon GUERRA, Estrella CARTER, et al. Evaluation,treatment, and prevention of vitamin D deficiency; an Endocrine Society clinical practice guideline. JCEM. 2010; 96(7):1911-30. WBC Auto (Bld) [#/Vol]Ordere d By: Price Crain on 09-27-2024 WBC (Bld) [#/Vol] Leukocytes [#/volume ] in Blood by Automated count 4.1-10.5 [facility] CBC W Auto Differential pane l (Bld)on 09-21-2024 Basophils (Bld) [#/Vol] 0 10*3/uL 0.0 - 0.2 10*3/uL [facility] Basophils/100 WBC Manual cnt (Syn fld) 0.4 % . [facility] Eosinophils (Bld) [#/Vol] 0.4 10*3/uL 0.0 - 0.45 10*3/uL [facility] Eosinophils/100 WBC Manual cnt (Syn fld) 5.3 % . [facility] Erythrocyte distribution width (RBC) [Ratio] 17.4 % High 12.0 - 14.8 % [facility] Hematocrit (Bld) [Volume fraction] 30.8 % Low 38.8 - 50.0 % [facility] Hemoglobin (Bld) [Mass/Vol] 10.3 g/dL Low 13.0 - 17.0 g/dL [facility] Interpretation and review of laboratory results Abnormal [facility] Lymphocytes (Bld) [#/Vol] 1.2 10*3/uL 1.00 - 4.8 10*3/uL [facility] Lymphocytes/100 WBC Manual cnt (Syn fld) 18.4 % . [facility] MCH (RBC) [Entitic mass] 35.1 pg 27.5 - 35.2 pg [facility] MCHC (RBC) [Mass/Vol] 33.4 g/dL 32.5 - 35.6 g/dL [facility] MCV (RBC) [Entitic vol] 105 fL High 83.5 - 101 fL [facility] Monocytes (Bld) [#/Vol] 0.4 10*3/uL 0.0 - 0.8 10*3/uL [facility] Monocytes+Macrophages/1 00 WBC Manual cnt (Syn fld) 6.1 % . [facility] Neutrophils (Bld) [#/Vol] 4.7 10*3/uL 1.8 - 7.7 10*3/uL [facility] Neutrophils/100 WBC Manual cnt (Syn fld) 69.8 % . [facility] NRBC 0.1 /100{WBC} 0 - 0.5 /100{WBC} [facility] Platelet mean volume (Bld) [Entitic vol] 8.3 fL 6.6 - 10.1 fL [facility] Platelets (Bld) [#/Vol] 182 10*3/uL 150 - 450 10*3/uL [facility] RBC LM.HPF (Urine sed) [#/Area] 2.94 10*6/uL Low 3.90 - 5.60 10*6/uL [facility] WBC (Bld) [#/Vol] 6.7 10*3/uL 4.1 - 10.5 10*3/uL [facility] WBC LM.HPF (Urine sed) [#/Area] 6.7 10*3/uL 4.1 - 10.5 10*3/uL [facility] Complete Blood Count Auto Di ffon 09-21-2024 Basophils (Bld) [#/Vol] 0.0 10*3/uL Normal 0.0-0.2 [facility] Comment on above: Result Comment: PERF ORMED BY:[address] [place], [place] [id number] MEDICAL DIRECTORDOMINIC FRANK M.D. Performed By: #### C BC ####[address] [address] [facility] Basophils/100 WBC (Bld) 0.4 % Normal . T dank [facility] Comment on above: Performed By: #### C BC ####[address] [address] [facility] Eosinophils (Bld) [#/Vol] 0.4 10*3/uL Normal 0.0-0.45 [facility] Comment on above: Performed By: #### C BC ####[address] Eosinophils/100 WBC (Bld) 5.3 % Normal . [facility] Comment on above: Performed By: #### C BC ####[address] Erythrocyte distribution width (RBC) [Ratio] 17.4 % High 12.0-14.8 [facility] Comment on above: Performed By: #### C BC ####[address] Hematocrit (Bld) [Volume fraction] 30.8 % Low 38.8-50.0 [facility] Comment on above: Performed By: #### C BC ####[address] Hemoglobin (Bld) [Mass/Vol] 10.3 g/dL Low 13.0-17.0 [facility] Comment on above: Performed By: #### C BC ####[address] Lymphocytes (Bld) [#/Vol] 1.2 10*3/uL Normal 1.00-4.8 [facility] Comment on above: Performed By: #### C BC ####[address] Lymphocytes/100 WBC (Bld) 18.4 % Normal . [facility] Comment on above: Performed By: #### C BC ####[address] MCH (RBC) [Entitic mass] 35.1 pg Normal 27.5-35.2 [facility] Comment on above: Performed By: #### C BC ####[address] MCV (RBC) [Entitic vol] 105.0 fL High 83.5-101 T he [facility] Comment on above: Performed By: #### C BC ####[address] Mean Corpuscular HGB Conc 33.4 g/dL Normal 32.5-35.6 [facility] Comment on above: Performed By: #### C BC ####[address] Monocytes (Bld) [#/Vol] 0.4 10*3/uL Normal 0.0-0.8 [facility] Comment on above: Performed By: #### C BC ####[address] Monocytes/100 WBC (Bld) 6.1 % Normal . [facility] Comment on above: Performed By: #### C BC ####[address] Neutrophils (Bld) [#/Vol] 4.7 10*3/uL Normal 1.8-7.7 [facility] Comment on above: Performed By: #### C BC ####[address] Neutrophils/100 WBC (Bld) 69.8 % Normal . [facility] Comment on above: Performed By: #### C BC ####[address] NRBC% 0.1 /100{WBC} Normal 0-0.5 [facility] Comment on above: Performed By: #### C BC ####[place] [id number] [facility] Platelet mean volume (Bld) [Entitic vol] 8.3 fL Normal 6.6-10.1 [facility] Comment on above: Performed By: #### C BC ####[place] [id number] [facility] Platelets (Bld) [#/Vol] 182 10*3/uL Normal 150-450 [facility] Comment on above: Performed By: #### C BC ####[address] RBC (Bld) [#/Vol] 2.94 10*6/uL Low 3.90-5.60 [facility] Comment on above: Performed By: #### C BC ####[facility] [place] [address] [facility] WBC (Bld) [#/Vol] 6.7 10*3/uL Normal 4.1-10.5 [facility] Comment on above: Performed By: #### C BC ####[facility] [place] [address] [facility] XR bone surveyon 09-21-2024 XR bone survey Normal [facility] C Urineon 09-12-2024 Bacteria identified Cx Nom (U) Microbiology PROCEDURE: Urine Culture [R1] SOURCE: U Cath BODY SITE: COLLECTED DATE/TIME: 09/08/2024 15:39 EST RECEIVED DATE/TIME: 09/09/2024 17:24 EST START DATE/TIME: 09/09/2024 17:24 EST FREE TEXT SOURCE: ANTONIO Damian APRN-C, TESS Damian APRNP-C, Makayla X Makayla X FINAL REPORTS Final Report [] Verified Date/Time: 09/12/2024 11:29 EST 25,000 cfu/ml Staphylococcus aureus 5,000 cfu/ml Enterococcus faecalis SUSCEPTIBILITY RESULTS _ LEGEND: S=Susceptible, N/R=Not Reported, Blank=Data not available, or drug not advisable or tested, I=Intermediate, ESBL=Extended spectrum beta-lactamase, R=Resistant, TFG=Thymidine-dependent strain, RADHA=Beta-lactamase positive, DEEPA=mcg/m;(mg/L), S*=Predicted susceptible interp, R*=Predicted resistant interp SA Entfaeca Antibiotic DEEPA Dilutn DEEPA Interp DEEPA Dilutn DEEPA Interp Amoxicillin/ <=4/2 S Clavulanate Ampicillin 8 RADHA <=2 S Ampicillin/ <=8/4 S Sulbactam Cefazolin <=8 S Ceftaroline <=0.5 S Ciprofloxacin >2 R <=1 S Daptomycin <=1 S <=1 S Gentamicin <=4 S Levofloxacin >4 R <=1 S Linezolid <=2 S <=2 S Nitrofurantoin <=32 S <=32 S Oxacillin 1 S Penicillin 8 RADHA 2 S Rifampin <=1 S <=1 S Tetracycline <=4 S >8 R Trimethoprim/ >2/38 R Sulfa Vancomycin 1 S 1 S Performing Locations R1: This test was performed at: [facility], [address] [place] [address], [facility]- , , [facility] Comment on above: Performed By: #### 2 [id number] #### [facility] [address] [place] [address] Ambulatory Visit Summaryon 0 09-08-2024 Ambulatory Visit Summary Ambulatory Visit Summary PATSY CUNNINGHAM :1945 Visit Date:09/08/2024 Ambulatory Visit Instructions Your Diagnosis Recurrent UTI Noncompliant bladder Your Care Team Attending Physician - CARLEY Damian APRN, Makayla Soriano Primary Care Physician - HELEN HEATH MD This Is Your Medications List aspirin (aspirin 81 mg Chew Tab) atorvastatin (atorvastatin 20 mg Tab) bifidobacterium-lactobacil huber (Probiotic + Colostrum) cholecalciferol (Vitamin D3 2000 intl units) cyanocobalamin (Vitamin B-12 100 mcg oral tablet) famotidine (famotidine 20 mg Tab) insulin glargine (Lantus insulin) insulin lispro (Humalog) multivitamin with iron (Gentle Iron oral capsule) nitrofurantoin (Macrobid 100 mg Cap) oxybutynin (oxybutynin 10 mg ER Tab) Procedures Performed Change of suprapubic catheter (07/28/2024), Cystoscopic insertion of ureteric stent (06/04/2024), Transperineal needle biopsy of prostate (06/01/2024), Cystoscopic insertion of ureteric stent (02/03/2024), Cystoscopic replacement of ureteric stent (06/10/2023), ESWL [...] to do next Scheduled Follow-Up Appointments Thursday 12:50 PM EST With: CARLEY Damian APRN, [place] X Where: [facility] [address] [place] [address]- Medications What How Much When Instructions Unchanged aspirin (aspirin 81 mg Chew Tab) Chewed Every day Unchanged atorvastatin (atorvastatin 20 mg Tab) 1 Tablets By Mouth Every day Unchanged bifidobacterium-lactobacil huber (Probiotic + Colostrum) By Mouth Every day Unchanged cholecalciferol (Vitamin D3 2000 intl units) By Mouth Every day Unchanged cyanocobalamin (Vitamin B-12 100 mcg oral tablet) By Mouth Every day Unchanged famotidine (famotidine 20 mg Tab) 1 Tablets By Mouth Once a day (at bedtime) Unchanged insulin glargine (Lantus insulin) 25 Units Subcutaneous Once a day (at bedtime) Unchanged insulin lispro (Humalog) 8 Units Subcutaneous Unchanged multivitamin with iron (Gentle Iron oral capsule) 1 Capsules By Mouth Every day Unchanged nitrofurantoin (Macrobid 100 mg Cap) 1 Capsules By Mouth 2 times a day take 1 cap morning of cath change and 12hrs after Unchanged oxybutynin (oxybutynin 10 mg ER Tab) 1 Tablets By Mouth Every day Allergies Myrbetriq (Multiple open mouth wounds) gabapentin (Unknown, Rash) lisinopril (Unknown, DRY COUGH, Cough) Problems Ongoing - Any problem that you are currently receiving treatment for. Asymptomatic microscopic hematuria Bilateral hydronephrosis BPH with urinary obstruction Diabetes Dysuria Elevated cholesterol Family history of prostate cancer in father Glycosuria History of kidney stones HTN (hypertension) Hydroureter Hydroureteronephrosis Incomplete bladder emptying Kidney stones Microhematuria Multiple myeloma in remission Nocturia Noncompliant bladder OAB (overactive bladder) Prostate cancer Recurrent UTI Rheumatoid arthritis Ureteral stricture UTI (urinary tract infection) UTI symptoms Weak urine stream Patient Survey You may receive a survey via text or e-mail asking about your office visit. Please share your experience with us by completing your survey. We appreciate your feedback and thank you for choosing us for your care. Normal [facility] Urology Office/Clinic Noteon 09-08-2024 Urology Office/Clinic Note Urology Office/Clinic Note HPI Staff 3 wk cath change. History of Present Illness I have reviewed and verified the staff HPI to be accurate for this encounter. Portions of this record may have been created with voice recognition artificial intelligence software, specifically [email or web address], [employer] and or [email or web address]. Substitutions may have occurred due to the inherent limitations of voice recognition and artificial intelligence software. Physical Exam General: Well developed, well nourished, in no acute distress. Assessment/Plan KML pt 1. Recurrent UTI (N39.0: Urinary tract infection, site not specified) UCx: 05/28/23 - >100k Enterobacter cloacae, but was supposed to be tx'd with Levaquin 500mg qd x7d. 06/01/23 - >100k Enterobacter cloacae, pt started Levequin therapy as indicated with prior ucx. 07/02/23 - 10k Staphylococcus epidermis, no abx given due to SPT adjustment at that time working. 08/16/24 - 30k Enterococcus faecalis, Jessica albicans Presumptive At prior OV, pt was to start gentamicin bladder irrigations daily. states that this will cost them $255/month and that he likely will not tolerate the volume that needs instilled according to the directions. Pt states his urine has been considerable darker lately, did start w/ pink tinged urine earlier today. Noted to have pink urine when cath exchanged today. Pt/ requesting UCX given his hx of urosepsis. Increase fluid intake, avoid bladder irritants ER for fever, NV, severe flank pain, inability to urinate -Rx for cipro sent -urine sent for culture, call pt w/ results Ordered: E&M of Est. Patient Low 20-29 Min 49116 Urine Culture 2. Noncompliant bladder (N31.9: Neuromuscular dysfunction of bladder, unspecified) SPT exchange IO today see adhoc -RTO 3 weeks for SPT exchange Ordered: Change cystostomy tube/simple 57049 E&M of Est. Patient Low 20-29 Min 46556 Orders: ciprofloxacin, 500 mg = 1 tab(s), Oral, q12hr, X 5 day(s), # 10 tab(s), Refills(s) 0, Pharmacy: [id number], 171, cm, 08/31/24 11:19:00 EST, Height/Length Dosing, 94, kg, 08/31/24 11:19:00 EST, Weight Dosing Follow-up With When Contact Information Nati MEJIA, [employer]-C, Makayla X, FAM, URL Additional Instructions: 3 wk cath change Patient Education Antibiotic Medicine, Adult Urinary Tract Infection, Adult Problem List/Past Medical History Ongoing Asymptomatic microscopic hematuria Bilateral hydronephrosis BPH with urinary obstruction Diabetes Dysuria Elevated cholesterol Family history of prostate cancer in father Glycosuria History of kidney stones HTN (hypertension) Hydroureter Hydroureteronephrosis Incomplete bladder emptying Kidney stones Microhematuria Multiple myeloma in remission Nocturia Noncompliant bladder OAB (overactive bladder) Prostate cancer Recurrent UTI Rheumatoid arthritis Ureteral stricture UTI (urinary tract infection) UTI symptoms Weak urine stream Historical No qualifying data Procedure/Surgical History Change of suprapubic catheter (07/28/2024), Cystoscopic insertion of ureteric stent (06/04/2024), Transperineal needle biopsy of prostate (06/01/2024), Cystoscopic insertion of ureteric stent (02/03/2024), Cystoscopic replacement of ureteric stent (06/10/2023), ESWL of kidney (06/10/2023), Cystostomy and insertion of suprapubic tube (03/05/2023), Cystoscopic insertion of ureteric stent (12/10/2022), TURP - Transurethral resection of prostate (08/27/2022), Transurethral insertion of prostatic urethral lift implant (05/05/2022), Cystoscopic removal of ureteric stent (08/20/2012), Cystoscopic ureteroneocystostomy with insertion 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 Medications aspirin 81 mg Chew Tab, Chewed, Daily atorvastatin 20 mg Tab, 20 mg= 1 tab(s), Oral, Daily Cipro 500 mg Tab, 500 mg= 1 tab(s), Oral, q12hr famotidine 20 mg Tab, 20 mg= 1 tab(s), Oral, Once a day (at bedtime) Gentle Iron oral capsule, 1 cap(s), Oral, Daily Humalog, 8 unit(s), SubCutaneous Lantus insulin, 25 unit(s), SubCutaneous, Once a day (at bedtime) Macrobid 100 mg Cap, 100 mg= 1 cap(s), Oral, BID, 1 refills oxybutynin 10 mg ER Tab, 10 mg= 1 tab(s), Oral, Daily Probiotic + Colostrum, Oral, Daily Vitamin B-12 100 mcg oral tablet, Oral, Daily Vitamin D3 2000 intl units, Oral, Daily Allergies Myrbetriq (Multiple open mouth wounds) gabapentin (Unknown, Rash) lisinopril (Unknown, DRY COUGH, Cough) Social History Alcohol Past. Beer. 1-2 times per year., 06/20/2024 Substance Abuse Never., 06/20/2024 Tobacco quit 28 years Tobacco Use:. Never Smokeless Tobacco Use:. Cigarettes, Household tobacco concerns: No. Yes, 08/31/2024 Family History Primary malignant neoplasm of prostate: Father. Immunizations Vaccine Date Status Comments influenza virus vaccine, inactivated 06/08/2024 Recorded influenza virus vaccine, inactivated (more content not included)... Normal [facility] Comment on above: Result Comment: Elec tronically Signed By: CARLEY Damian APRN, [place] X\.angel\Date and Time Signed: 09/08/24 15:50 EST Ambulatory Visit Summaryon 0 08-31-2024 Ambulatory Visit Summary Ambulatory Visit Summary PATSY CUNNINGHAM :1945 Visit Date:08/31/2024 Ambulatory Visit Instructions Your Diagnosis Prostate cancer Noncompliant bladder Hydroureteronephrosis Ureteral stricture Incomplete bladder emptying Recurrent UTI Kidney stones BPH with urinary obstruction Family history of prostate cancer in father Your Care Team Attending Physician - Diego RICKS, Orquidea Taylor Primary Care Physician - HELEN HEATH MD This Is Your Medications List nitrofurantoin (Macrobid 100 mg Cap) oxybutynin (oxybutynin 10 mg ER Tab) Contact prescribing physician if questions or concerns aspirin (aspirin 81 mg Chew Tab) atorvastatin (atorvastatin 20 mg Tab) bifidobacterium-lactobacil huber (Probiotic + Colostrum) cholecalciferol (Vitamin D3 2000 intl units) cyanocobalamin (Vitamin B-12 100 mcg oral tablet) famotidine (famotidine 20 mg Tab) insulin glargine (Lantus insulin) insulin lispro (Humalog) multivitamin with iron (Gentle Iron oral capsule) Procedures Performed Change of suprapubic catheter (07/28/2024), Cystoscopic insertion of ureteric stent (06/04/2024), Transperineal needle biopsy of prostate (06/01/2024), Cystoscopic insertion of ureteric stent (02/03/2024), Cystoscopic replacement of ureteric stent (06/10/2023), ESWL [...] Vitals Heart Rate (Peripheral) 82 Respiratory Rate 18 Blood Pressure 139/76 Height 171 cm Height 67 in Weight 94 kg Weight 207.234 lb BMI 32.15 What to do next Scheduled Follow-Up Appointments 2024 3:10 PM EST With: CARLEY Damian APRN, [place] X Where: [facility] [place] [address]- You Need to Schedule the Following Appointments Follow Up with Diego RICKS, OUSMANE Bell, URO When: Comments: Schedule BL stent exchange in 3 mos Where: Medications What How Much When Instructions Unchanged nitrofurantoin (Macrobid 100 mg Cap) 1 Capsules By Mouth 2 times a day take 1 cap morning of cath change and 12hrs after Unchanged oxybutynin (oxybutynin 10 mg ER Tab) 1 Tablets By Mouth Every day Unchanged aspirin (aspirin 81 mg Chew Tab) Chewed Every day Contact prescribing physician if questions or concerns Unchanged atorvastatin (atorvastatin 20 mg Tab) 1 Tablets By Mouth Every day Contact prescribing physician if questions or concerns Unchanged bifidobacterium-lactobacil huber (Probiotic + Colostrum) By Mouth Every day Contact prescribing physician if questions or concerns Unchanged cholecalciferol (Vitamin D3 2000 intl units) By Mouth Every day Contact prescribing physician if questions or concerns Unchanged cyanocobalamin (Vitamin B-12 100 mcg oral tablet) By Mouth Every day Contact prescribing physician [...] prescribing physician if questions or concerns Unchanged multivitamin with iron (Gentle Iron oral capsule) 1 Capsules By Mouth Every day Contact prescribing physician if questions or concerns Allergies Myrbetriq (Multiple open mouth wounds) gabapentin (Unknown, Rash) lisinopril (Unknown, DRY COUGH, Cough) Problems Ongoing - Any problem that you are currently receiving treatment for. Asymptomatic microscopic hematuria Bilateral hydronephrosis BPH with urinary obstruction Diabetes Dysuria Elevated cholesterol Family history of prostate cancer in father Glycosuria History of kidney stones HTN (hypertension) Hydroureter Hydroureteronephrosis Incomplete bladder emptying Kidney stones Microhematuria Multiple myeloma in remission Nocturia Noncompliant bladder OAB (overactive bladder) Prostate cancer Recurrent UTI Rheumatoid arthritis Ureteral stricture UTI (urinary tract infection) UTI symptoms Weak urine stream Patient Survey You may receive a survey via text or e-mail asking about your office visit. Please share your experience with us by completing your survey. We appreciate your feedback and thank you for choosing us for your care. Education Materials Infection Prevention in the Home If you have an infection, may have been exposed to an infection, or are t (more content not included)... Normal [facility] Urology Office/Clinic Noteon 08-31-2024 Urology Office/Clinic Note Urology Office/Clinic Note Chief Complaint Follow Up to UTI & ER visit HPI Staff 3 month f/u. Previous dx: prostate cancer (active surveillance), noncompliant bladder, OAB, hydroureteronephrosis, ureteral stricture, incomplete bladder emptying, recurrent UTI, kidney stones, BPH with urinary obstruction, fam hx of prostate cancer in father. [facility] ER visit 07/20/24 due to not feeling well and weakness with dizziness. Labs showed WBC 21, Cr 4.8, and increased lactic acid. Pt was given Levaquin and Diflucan. Pt was admitted for further evaluation. CT AP wo con - Bilateral ureteral stents are in place with mild bilateral hydronephrosis and left nephrolithiasis. Decompressed bladder with SP catheter with bladder wall thickening and inflammation. Pt's Cr went up to 6.6 and started having mild peripheral edema that was not present upon admission so pt was transferred to [facility]. S/p Cysto with bilateral stent exchange, SP catheter exchange, ureteroscopy/R RPG 07/28/[address] Franklyn Lau at [facility]. It was discussed after the procedure for pt to consider bilateral nephrostomy tubes. Last SPT change by AO 08/16/24, pt had rapid onset of chills, fatigue, some body aches that day so urine culture was sent and pt was started on Cipro. UCx showed 30k Enterococcus faecalis and 30k Jessica albicans. Pt admits to drinking alot of water. States his urine has been. Denies fever chills. Still viola occasional dizziness in AM. Attributes to diabetes. states he is currently scheduled for stent exchange w/Dr Cortez next month. Needs to be rescheduled due to just having stents exchanged. Pt states the stent size was changed this last time, larger. History of Present Illness Tests reviewed: outside records including op note, labs, notes I have reviewed the previous health record information and history for this patient from and external providers I have reviewed and [...] Exam Vitals & Measurements HR: 82(Peripheral) RR: 18 BP: 139/76 HT: 67 in HT: 171 cm WT: 94 kg WT: 207.234 lb BMI: 32.15 General Appearance: alert, no distress, well nourished, well developed male. Assessment/Plan 79 year old male with complex urologic history s/p urolift, TURP, incidental finding of fav intermediate risk prostate cancer on active surveillance, found to have right distal ureteral stricture, non-compliant small bladder with BL VUR, acute on chronic renal failure. He was referred to Dr. Jessica Feliciano for further evaluation regarding recommendations of SP tube, stent, definitive care which is more invasive (cystectomy). Hx of multiple myeloma s/p tx, currently in remission. Sees Dr. Huddleston - no contraindications to proceed with any treatments or interventions. THERESA N/A, pt inactive. Follows with nephDr. Breann fields. Pt here with his today. 1. Prostate cancer (C61: Malignant neoplasm of prostate) ACTIVE SURVEILLANCE. cT1b Favorable intermediate risk prostate cancer, grade group 2 (6-10% GS4, 9% tissue resected involved) initial PSA 1.5 (11/2021). [3] PSA: 04/11/20 - 2.62 10/29/20 - 2.84 12/05/21 - 1.49, PSAD 0.08 09/09/23 - 0.71 Prostate volume 17.5 g (pre-TURP). TURP 08/27/22 - Incidental finding of prostatic adenocarcinoma. Eucha 7 (3+4), GG2. Only 6-10% of Eucha 4 present. 7 of 78 prostate chips involved. No adverse pathology. Decipher testing 08/27/22 - High genomic risk. Not ideal surgical candidate (prostatectomy) due to age, comorbidities. [place] [facility] [place] 14 cc. Post intervention changes w/o definitive MRI evidence of prostate malignancy. Lesion seen involving the R ischial tuberosity measuring 1 cm. A bony metastatic lesion cannot be excluded (recent bone survey neg). Evaluation by [facility] also suggested continue active surveillance. S/p cysto, R RPG, stent exchange, SP tube exchange, TP prostate bx, TRUS 06/01/24 - G6 (3+3) x 1 core (PINEDA). HGPIN x 2 core (LPM, LPL). -Cont after surveillance, PSAs every 6 to 12 months 2. 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 S/p cysto, R RGP, stent exchange, (more content not included)... Normal [facility] Comment on above: Result Comment: Elec tronically Signed By: Orquidea Cortez MD\.br\Date and Time Signed: 08/31/24 15:26 EST\.br\Electronically Co-Signed By: Makayla Lara.br\Date and Time Co-Signed: 08/31/24 12:30 EST CBC W Auto Differential pane l (Bld)on 08-24-2024 Basophils (Bld) [#/Vol] 0.1 10*3/uL 0.0 - 0.2 10*3/uL [facility] Basophils/100 WBC Manual cnt (Syn fld) 0.9 % . [facility] Eosinophils (Bld) [#/Vol] 0.5 10*3/uL High 0.0 - 0.45 10*3/uL [facility] Eosinophils/100 WBC Manual cnt (Syn fld) 6.2 % . [facility] Erythrocyte distribution width (RBC) [Ratio] 17.6 % High 12.0 - 14.8 % [facility] Hematocrit (Bld) [Volume fraction] 31.2 % Low 38.8 - 50.0 % [facility] Hemoglobin (Bld) [Mass/Vol] 10.4 g/dL Low 13.0 - 17.0 g/dL [facility] Interpretation and review of laboratory results Abnormal [facility] Lymphocytes (Bld) [#/Vol] 1.2 10*3/uL 1.00 - 4.8 10*3/uL [facility] Lymphocytes/100 WBC Manual cnt (Syn fld) 16.8 % . [facility] MCH (RBC) [Entitic mass] 34.8 pg 27.5 - 35.2 pg [facility] MCHC (RBC) [Mass/Vol] 33.3 g/dL 32.5 - 35.6 g/dL [facility] MCV (RBC) [Entitic vol] 104.6 fL High 83.5 - 101 fL [facility] Monocytes (Bld) [#/Vol] 0.4 10*3/uL 0.0 - 0.8 10*3/uL [facility] Monocytes+Macrophages/1 00 WBC Manual cnt (Syn fld) 6 % . [facility] Neutrophils (Bld) [#/Vol] 5.2 10*3/uL 1.8 - 7.7 10*3/uL [facility] Neutrophils/100 WBC Manual cnt (Syn fld) 70.1 % . [facility] NRBC 0.1 /100{WBC} 0 - 0.5 /100{WBC} [facility] Platelet mean volume (Bld) [Entitic vol] 8 fL 6.6 - 10.1 fL [facility] Platelets (Bld) [#/Vol] 199 10*3/uL 150 - 450 10*3/uL [facility] RBC LM.HPF (Urine sed) [#/Area] 2.98 10*6/uL Low 3.90 - 5.60 10*6/uL [facility] WBC (Bld) [#/Vol] 7.4 10*3/uL 4.1 - 10.5 10*3/uL [facility] WBC LM.HPF (Urine sed) [#/Area] 7.4 10*3/uL 4.1 - 10.5 10*3/uL [facility] Complete Blood Count Auto Di ffon 08-24-2024 Basophils (Bld) [#/Vol] 0.1 10*3/uL Normal 0.0-0.2 [facility] Comment on above: Result Comment: PERF ORMED BY:[address] [place] [phone] MEDICAL DIRECTORDOMINIC FRANK M.D. Performed By: #### C BC ####[address] Basophils/100 WBC (Bld) 0.9 % Normal . [facility] Comment on above: Performed By: #### C BC ####[address] Eosinophils (Bld) [#/Vol] 0.5 10*3/uL High 0.0-0.45 [facility] Comment on above: Performed By: #### C BC ####[address] Eosinophils/100 WBC (Bld) 6.2 % Normal . [facility] Comment on above: Performed By: #### C BC ####[address] Erythrocyte distribution width (RBC) [Ratio] 17.6 % High 12.0-14.8 [facility] Comment on above: Performed By: #### C BC ####[address] Hematocrit (Bld) [Volume fraction] 31.2 % Low 38.8-50.0 [facility] Comment on above: Performed By: #### C BC ####[address] Hemoglobin (Bld) [Mass/Vol] 10.4 g/dL Low 13.0-17.0 [facility] Comment on above: Performed By: #### C BC ####[address] Lymphocytes (Bld) [#/Vol] 1.2 10*3/uL Normal 1.00-4.8 [facility] Comment on above: Performed By: #### C BC ####[address] Lymphocytes/100 WBC (Bld) 16.8 % Normal . [facility] Comment on above: Performed By: #### C BC ####[address] MCH (RBC) [Entitic mass] 34.8 pg Normal 27.5-35.2 [facility] Comment on above: Performed By: #### C BC ####[address] MCV (RBC) [Entitic vol] 104.6 fL High 83.5-101 [facility] Comment on above: Performed By: #### C BC ####[address] Mean Corpuscular HGB Conc 33.3 g/dL Normal 32.5-35.6 [facility] Comment on above: Performed By: #### C BC ####[address] Monocytes (Bld) [#/Vol] 0.4 10*3/uL Normal 0.0-0.8 [facility] Comment on above: Performed By: #### C BC ####[address] Monocytes/100 WBC (Bld) 6.0 % Normal . [facility] Comment on above: Performed By: #### C BC ####[address] Neutrophils (Bld) [#/Vol] 5.2 10*3/uL Normal 1.8-7.7 [facility] Comment on above: Performed By: #### C BC ####[place] [id number] [facility] Neutrophils/100 WBC (Bld) 70.1 % Normal . [facility] Comment on above: Performed By: #### C BC ####[id number] [facility] NRBC% 0.1 /100{WBC} Normal 0-0.5 [facility] Comment on above: Performed By: #### C BC ####[address] [address] [facility] Platelet mean volume (Bld) [Entitic vol] 8.0 fL Normal 6.6-10.1 [facility] Comment on above: Performed By: #### C BC ####[id number] [facility] Platelets (Bld) [#/Vol] 199 10*3/uL Normal 150-450 [facility] Comment on above: Performed By: #### C BC ####[address] [address] [facility] RBC (Bld) [#/Vol] 2.98 10*6/uL Low 3.90-5.60 [facility] Comment on above: Performed By: #### C BC ####[id number] [facility] WBC (Bld) [#/Vol] 7.4 10*3/uL Normal 4.1-10.5 [facility] Comment on above: Performed By: #### C BC ####[address] [address] [id number] [facility] C Urineon 08-19-2024 Bacteria identified Cx Nom (U) Microbiology PROCEDURE: Urine Culture [R1] SOURCE: U Cath BODY SITE: COLLECTED DATE/TIME: 08/16/2024 12:29 EST RECEIVED DATE/TIME: 08/16/2024 16:06 EST START DATE/TIME: 08/16/2024 16:06 EST FREE TEXT SOURCE: cath Orzech HAND DEICER ELEMENT WINDER, BRANCH SALES MANAGER-C, Nati HAND DEICER ELEMENT WINDER, BRANCH SALES MANAGER-C, Makayla X Makayla X FINAL REPORTS Final Report [] Verified Date/Time: 08/19/2024 11:00 EST 30,000 cfu/ml Enterococcus faecalis 30,000 cfu/ml Jessica albicans Presumptive SUSCEPTIBILITY RESULTS _ LEGEND: S=Susceptible, N/R=Not Reported, Blank=Data not available, or drug not advisable or tested, I=Intermediate, ESBL=Extended spectrum beta-lactamase, R=Resistant, TFG=Thymidine-dependent strain, RADHA=Beta-lactamase positive, DEEPA=mcg/m;(mg/L), S*=Predicted susceptible interp, R*=Predicted resistant interp Entfaeca Antibiotic DEEPA Dilutn DEEPA Interp Ampicillin <=2 S Ciprofloxacin <=1 S Daptomycin <=1 S Levofloxacin <=1 S Linezolid <=2 S Nitrofurantoin <=32 S Penicillin 2 S Rifampin <=1 S Tetracycline >8 R Vancomycin 1 S Performing Locations R1: This test was performed at: [facility], [address] [place] [address], [id number] , , [facility] Comment on above: Performed By: #### 2 [id number] #### [facility] [address] [place] [address], [place] [address] Urology Office/Clinic Noteon 08-18-2024 Urology Office/Clinic Note Urology Office/Clinic Note HPI Staff fatigue, chills, body aches started today History of Present Illness I have reviewed and verified the staff HPI to be accurate for this encounter. Portions of this record may have been created with voice recognition artificial intelligence software, specifically [email or web address], [employer] and or [email or web address]. Substitutions may have occurred due to the inherent limitations of voice recognition and artificial intelligence software. Physical Exam General: Well developed, well nourished, in no acute distress. Assessment/Plan KML pt 1. UTI (urinary tract infection) (N39.0: Urinary tract infection, site not specified) hx of frequent UTIs, sepsis does take macrobid prophylactically around time of SPT exchanges recent inpatient stay at [facility] d/t urosepsis has been doing well since discharge overall, has significantly increased fluid intake and started using night bag to reduce reflux of urine Today, he suddenly had rapid onset of chills, fatigue, some body aches Urine purulent during cath change today, although not uncommon for him pt/ concerned for poss infection, vu given upcoming holiday and office being closed sample taken from fresh SPT today -send ucx, contact pt if needing to change treatment course based on results -start cipro, discussed SEs. rx sent -f/u w/ KML as scheduled to discuss next stent exchange and recs from [facility] doc 2. Noncompliant bladder (N31.9: Neuromuscular dysfunction of bladder, unspecified) SPT change in office today w/o complications see adhoc Follow-up No qualifying data available Patient Education Antibiotic Medicine, Adult Urinary Tract Infection, Adult Problem List/Past Medical History Ongoing Asymptomatic microscopic hematuria Bilateral hydronephrosis BPH with urinary obstruction Diabetes Dysuria Elevated cholesterol Family history of prostate cancer in father Glycosuria History of kidney stones HTN (hypertension) Hydroureter Hydroureteronephrosis Incomplete bladder emptying Kidney stones Microhematuria Multiple myeloma in remission Nocturia Noncompliant bladder OAB (overactive bladder) Prostate cancer Recurrent UTI Rheumatoid arthritis Ureteral stricture UTI (urinary tract infection) UTI symptoms Weak urine stream Historical No qualifying data Procedure/Surgical History Cystoscopic insertion of ureteric stent (06/04/2024), Transperineal needle biopsy of prostate (06/01/2024), Cystoscopic insertion of ureteric stent (02/03/2024), Cystoscopic replacement of ureteric stent (06/10/2023), ESWL of kidney (06/10/2023), Cystostomy and insertion of suprapubic tube (03/05/2023), Cystoscopic insertion of ureteric stent (12/10/2022), TURP - Transurethral resection of prostate (08/27/2022), Transurethral insertion of prostatic urethral lift implant (05/05/2022), Cystoscopic removal of ureteric stent (08/20/2012), Cystoscopic ureteroneocystostomy with insertion 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 Medications aspirin 81 mg Chew Tab, Chewed, Daily atorvastatin 20 mg Tab, 20 mg= 1 tab(s), Oral, Daily Cipro 500 mg Tab, 500 mg= 1 tab(s), Oral, q12hr famotidine 20 mg Tab, 20 mg= 1 tab(s), Oral, Once a day (at bedtime) Gentle Iron oral capsule, 1 cap(s), Oral, Daily Humalog, 8 unit(s), SubCutaneous Lantus insulin, 25 unit(s), SubCutaneous, Once a day (at bedtime) Macrobid 100 mg Cap, 100 mg= 1 cap(s), Oral, BID, 1 refills oxybutynin 10 mg ER Tab, 10 mg= 1 tab(s), Oral, Daily Probiotic + Colostrum, Oral, Daily Vitamin B-12 100 mcg oral tablet, Oral, Daily Vitamin D3 2000 intl units, Oral, Daily Allergies Myrbetriq (Multiple open mouth wounds) gabapentin (Unknown, Rash) lisinopril (Unknown, DRY COUGH, Cough) Social History Alcohol Past. Beer. 1-2 times per year., 06/20/2024 Substance Abuse Never., 06/20/2024 Tobacco quit 28 years Tobacco Use:., 08/09/2024 Family History Primary malignant neoplasm of prostate: Father. Immunizations Vaccine Date Status Comments influenza virus vaccine, inactivated 06/08/2024 Recorded influenza virus vaccine, inactivated 07/28/2023 Recorded hepatitis A adult vaccine 07/28/2022 Recorded influenza virus vaccine, inactivated 05/18/2022 Recorded zoster vaccine, inactivated 03/03/2022 Recorded hepatitis A adult vaccine 02/05/2022 Recorded zoster vaccine, inactivated 07/31/2021 Recorded influenza virus vaccine, inactivated 07/16/2021 Recorded pneumococcal 13-valent vaccine 06/24/2021 Recorded hepatitis B pediatric vaccine 06/24/2021 Recorded haemophilus b conjugate (PRP-T) vaccine 06/24/2021 Recorded diphtheria/pertussis, acel/tetanus ped 06/24/2021 Recorded SARS-CoV-2 (COVID-19) Ad26 vaccine 06/04/2021 Recorded pneumococcal 13-valent vaccine 04/29/2021 Recorded meningococcal conjugate vaccine 04/29/2021 Recorded hepatitis B pediatric vaccine 04/29/2021 Recorded haemophilu (more content not included)... Normal [facility] Comment on above: Result Comment: Elec tronically Signed By: CARLEY Damian APRN, Makayla Soriano\.br\Date and Time Signed: 08/18/24 20:01 EST Basic Metabolic Panelon 12- Anion gap [Moles/Vol] 13.4 mmol/L Normal 6.0-15.0 [facility] Comment on above: Performed By: #### B MP ####[place] [id number] [facility] Calcium [Mass/Vol] 8.1 mg/dL Low 8.6-10.3 [facility] Comment on above: Performed By: #### B MP ####[place] [phone] [facility] Chloride [Moles/Vol] 109 mmol/L High 98-107 [facility] Comment on above: Performed By: #### B MP ####[address] [address] [facility] CO2 [Moles/Vol] 21.6 mmol/L Normal 21.0-31.0 [facility] Comment on above: Performed By: #### B MP ####[place] [id number] [facility] Creatinine [Mass/Vol] 2.43 mg/dL High 0.70-1.30 [facility] Comment on above: Performed By: #### B MP ####[place] [id number] [facility] Creatinine Clr Calc Pharmacy 27.82 Normal [facility] Comment on above: Result Comment: PERF ORMED BY:[place] [address] [place], [place] [phone] MEDICAL DIRECTORDOMINIC FRANK M.D. Performed By: #### B MP ####[place] [id number] [facility] Estimated GFR 26.380 mL/Min Normal [facility] Comment on above: Performed By: #### B MP ####[address] Glucose [Mass/Vol] 139 mg/dL High 70-100 [facility] Comment on above: Result Comment: Ignacio Glucose Reference Range is dependent on time and content of last meal. Glucose of more than 200 mg/dL in a nonstressed, ambulatory subject supports the diagnosis of Diabetes Mellitus. ADA recommended reference range Performed By: #### B MP ####[address] Potassium [Moles/Vol] 4.0 mmol/L Normal 3.5-5.1 [facility] Comment on above: Performed By: #### B MP ####[address] Sodium [Moles/Vol] 140 mmol/L Normal 136-145 [facility] Comment on above: Performed By: #### B MP ####[place] [id number] [facility] Urea nitrogen [Mass/Vol] 32 mg/dL High 7-25 [facility] Comment on above: Performed By: #### B MP ####[place] [id number] [facility] CBC W Auto Differential pane l (Bld)on 08-01-2024 Basophils (Bld) [#/Vol] 0 10*3/uL 0.0 - 0.2 10*3/uL [facility] Basophils/100 WBC Manual cnt (Syn fld) 0.4 % . [facility] Eosinophils (Bld) [#/Vol] 0.3 10*3/uL 0.0 - 0.45 10*3/uL [facility] Eosinophils/100 WBC Manual cnt (Syn fld) 4.6 % . [facility] Erythrocyte distribution width (RBC) [Ratio] 17 % High 12.0 - 14.8 % [facility] Hematocrit (Bld) [Volume fraction] 29.2 % Low 38.8 - 50.0 % [facility] Hemoglobin (Bld) [Mass/Vol] 9.7 g/dL Low 13.0 - 17.0 g/dL [facility] Interpretation and review of laboratory results Abnormal [facility] Lymphocytes (Bld) [#/Vol] 0.8 10*3/uL Low 1.00 - 4.8 10*3/uL [facility] Lymphocytes/100 WBC Manual cnt (Syn fld) 11.3 % . [facility] MCH (RBC) [Entitic mass] 34 pg 27.5 - 35.2 pg [facility] MCHC (RBC) [Mass/Vol] 33.1 g/dL 32.5 - 35.6 g/dL [facility] MCV (RBC) [Entitic vol] 102.8 fL High 83.5 - 101 fL [facility] Monocytes (Bld) [#/Vol] 0.4 10*3/uL 0.0 - 0.8 10*3/uL [facility] Monocytes+Macrophages/1 00 WBC Manual cnt (Syn fld) 5.3 % . [facility] Neutrophils (Bld) [#/Vol] 5.7 10*3/uL 1.8 - 7.7 10*3/uL [facility] Neutrophils/100 WBC Manual cnt (Syn fld) 78.4 % . [facility] NRBC 0 /100{WBC} 0 - 0.5 /100{WBC} [facility] Platelet mean volume (Bld) [Entitic vol] 8.2 fL 6.6 - 10.1 fL [facility] Platelets (Bld) [#/Vol] 200 10*3/uL 150 - 450 10*3/uL [facility] RBC LM.HPF (Urine sed) [#/Area] 2.84 10*6/uL Low 3.90 - 5.60 10*6/uL [facility] WBC (Bld) [#/Vol] 7.3 10*3/uL 4.1 - 10.5 10*3/uL [facility] WBC LM.HPF (Urine sed) [#/Area] 7.3 10*3/uL 4.1 - 10.5 10*3/uL [facility] Complete Blood Count Auto Di ffon 08-01-2024 Basophils (Bld) [#/Vol] 0.0 10*3/uL Normal 0.0-0.2 [facility] Comment on above: Result Comment: PERF ORMED BY:[address] [place], [place] [phone] MEDICAL DIRECTORDOMINIC FRANK M.D. Performed By: #### C BC ####[address] Basophils/100 WBC (Bld) 0.4 % Normal . [facility] Comment on above: Performed By: #### C BC ####[address] Eosinophils (Bld) [#/Vol] 0.3 10*3/uL Normal 0.0-0.45 [facility] Comment on above: Performed By: #### C BC ####[address] Eosinophils/100 WBC (Bld) 4.6 % Normal . [facility] Comment on above: Performed By: #### C BC ####[address] Erythrocyte distribution width (RBC) [Ratio] 17.0 % High 12.0-14.8 [facility] Comment on above: Performed By: #### C BC ####[address] Hematocrit (Bld) [Volume fraction] 29.2 % Low 38.8-50.0 [facility] Comment on above: Performed By: #### C BC ####[place] [address] Hemoglobin (Bld) [Mass/Vol] 9.7 g/dL Low 13.0-17.0 [facility] Comment on above: Performed By: #### C BC ####[address] Lymphocytes (Bld) [#/Vol] 0.8 10*3/uL Low 1.00-4.8 [facility] Comment on above: Performed By: #### C BC ####[address] Lymphocytes/100 WBC (Bld) 11.3 % Normal . [facility] Comment on above: Performed By: #### C BC ####[address] MCH (RBC) [Entitic mass] 34.0 pg Normal 27.5-35.2 [facility] Comment on above: Performed By: #### C BC ####[address] MCV (RBC) [Entitic vol] 102.8 fL High 83.5-101 [facility] Comment on above: Performed By: #### C BC ####[address] Mean Corpuscular HGB Conc 33.1 g/dL Normal 32.5-35.6 [facility] Comment on above: Performed By: #### C BC ####[address] Monocytes (Bld) [#/Vol] 0.4 10*3/uL Normal 0.0-0.8 [facility] Comment on above: Performed By: #### C BC ####[address] Monocytes/100 WBC (Bld) 5.3 % Normal . [facility] Comment on above: Performed By: #### C BC ####[address] Neutrophils (Bld) [#/Vol] 5.7 10*3/uL Normal 1.8-7.7 [facility] Comment on above: Performed By: #### C BC ####[address] Neutrophils/100 WBC (Bld) 78.4 % Normal . [facility] Comment on above: Performed By: #### C BC ####[address] NRBC% 0.0 /100{WBC} Normal 0-0.5 [facility] Comment on above: Performed By: #### C BC ####[address] Platelet mean volume (Bld) [Entitic vol] 8.2 fL Normal 6.6-10.1 [facility] Comment on above: Performed By: #### C BC ####[address] Platelets (Bld) [#/Vol] 200 10*3/uL Normal 150-450 [facility] Comment on above: Performed By: #### C BC ####[address] RBC (Bld) [#/Vol] 2.84 10*6/uL Low 3.90-5.60 [facility] Comment on above: Performed By: #### C BC ####[address] WBC (Bld) [#/Vol] 7.3 10*3/uL Normal 4.1-10.5 [facility] Comment on above: Performed By: #### C BC ####[address] 30on 07-30-2024 30 Daily Case Managemen t Update Multidisciplinary rounds have been completed. Barriers to Discharge: Patient is medically ready for discharge at this time. Follow up appointments added to patients AVS, and AVS completed. Patient has been instructed to obtain prescription for follow-up lab work from his primary care provider. Primary RN notified of patients discharge readiness. No further OTM needs identified at this time. [facility] will continue to follow and assist with any further discharge related needs. Diet: Dietary Orders (From admission, onward) Start Ordered 07/28/241823 Special Kitchen Request Once Comments: Egg salad sandwich with white bread, strawberry cake, grape juice 07/28/24182407/28/24 181 Regular Diet Diabetic Male (carb 60g/meal) Diet effective now Comments: Per Dr Devries, pt ok to get diet order when return to 4ab and ok to order meal before kitchen closes Question Answer Comment Room Service? Yes Carbohydrate restriction: Diabetic Male (carb 60g/meal) 07/28/241821 Physician Expected Discharge Date: 07/30/2024 Discharge Delays: PT Six Click Score: 20 OT Six Click Score: 19 PT Recommendations: Home OT Recommendations: Home Does patient understand post acute plan of care? Yes Is expected discharge disposition appropriate for patient?: Yes New Consults: Consult Orders (From admission, onward) Start Ordered 07/24/24 171 Inpatient consult to Nephrology Once Specialty: Nephrology Provider: (Not yet assigned) Question Answer Comment Consulting Group NEPHROLOGY TEAM Reason for Consult? worsening kidney function, eval for HD Level of Consultation Consultation and Management 07/24/24 171 Therapy Orders (From admission, onward) Start Ordered 07/24/24 1837 OT eval and treat Until therapy completed Question: Reason for OT? Answer: D/C recs 07/24/24 1838 Normal [facility] BASIC METABOLIC PANELon 12- Anion gap [Moles/Vol] 9 mmol/L Normal 7-20 [facility] Comment on above: Performed By: #### L AB15 ####[facility] ([facility])[address] [place] [address] Calcium [Mass/Vol] 8.1 mg/dL Low 8.6-10.3 [facility] Comment on above: Performed By: #### L AB15 ####[facility] ([facility])[address] [place] [address] Chloride [Moles/Vol] 110 mmol/L High 98-107 [facility] Comment on above: Performed By: #### L AB15 ####[facility] [place] [address] CO2 [Moles/Vol] 24 mmol/L Normal 21-31 [facility] Comment on above: Performed By: #### L AB15 ####[facility] ([facility])[address] [place] [address] Creatinine [Mass/Vol] 2.70 mg/dL High 0.70-1.30 [facility] Comment on above: Performed By: #### L AB15 ####[facility] ([facility])[address] [place] [address] GLOMERULAR FILTRATION RATE ML/MIN/1.73 SQ M.PREDICTED 23.2 mL/min/1.73m*2 Low >60.0 [facility] Comment on above: Result Comment: [facility]???s estimated glomerular filtration rate (eGFR) will no longer include consideration of race in its calculation. The National Kidney Foundation???s eGFR Task Force developed new recommendations for the estimation of the glomerular filtration rate in the [place] They recommend immediate implementation of the new equation refit without the race variable in all laboratories because the calculation does not include race. In addition to not including race in the calculation and reporting, it included diversity in its development, and has acceptable performance characteristics and potential consequences that do not disproportionately affect any one group of individuals. Performed By: #### L AB15 ####[facility] [place] [address] Glucose [Mass/Vol] 110 mg/dL High 70-100 [facility] Comment on above: Performed By: #### L AB15 ####[facility] [place] [address] Potassium [Moles/Vol] 3.7 mmol/L Normal 3.5-5.1 [facility] Comment on above: Performed By: #### L AB15 ####[facility] [place] [address] Sodium [Moles/Vol] 139 mmol/L Normal 136-145 [facility] Comment on above: Performed By: #### L AB15 ####[facility] ([facility])[address] [place] [address] Urea nitrogen [Mass/Vol] 30 mg/dL High 7-25 [facility] Comment on above: Performed By: #### L AB15 ####[facility] ([facility])[address] [place] [address] UREA NITROGEN/CREATININE (MASS RATIO) IN SER/PLAS 11.1 Normal [facility] Comment on above: Performed By: #### L AB15 ####[facility] [facility] ([facility])[address] [place] [address] CBC WITH AUTO DIFFERENTIALon 07-30-2024 Basophils (Bld) [#/Vol] 0.02 10*3/uL Normal 0.00-0.20 [facility] Comment on above: Performed By: #### L [id number] #### [facility] ([facility]) [address] [place] [address] Basophils/100 WBC (Bld) 0.2 % Normal 0.0-1.0 [facility] Comment on above: Performed By: #### L [id number] #### [facility] ([facility]) [address] [place] [address] Eosinophils (Bld) [#/Vol] 0.26 10*3/uL Normal 0.00-0.50 [facility] Comment on above: Performed By: #### L [id number] #### [facility] ([facility]) [address] [place] [address] Eosinophils/100 WBC (Bld) 2.9 % Normal 0.0-6.0 [facility] Comment on above: Performed By: #### L [id number] #### [facility] ([facility]) [address] [place] [address] Erythrocyte distribution width (RBC) [Ratio] 16.6 % High 11.5-15.0 [facility] Comment on above: Performed By: #### L [id number] #### [facility] [address] [place] [address] ERYTHROCYTE MEAN CORPUSCULAR HEMOGLOBIN CONCENTRATION (G/DL) BY AUTOMATED 31.9 g/dL Low 32.0-35.0 [facility] Comment on above: Performed By: #### L [id number] #### [facility] [address] [place] [address] Hematocrit (Bld) [Volume fraction] 25.4 % Low 39.0-55.0 [facility] Comment on above: Performed By: #### L [id number] #### [facility] ([facility]) [address] [place] [address] Hemoglobin (Bld) [Mass/Vol] 8.1 g/dL Low 13.0-17.0 [facility] Comment on above: Performed By: #### L [id number] #### [facility] [address] [place] [address] Immature granulocytes (Bld) [#/Vol] 0.06 10*3/uL Normal 0.00-0.20 [facility] Comment on above: Performed By: #### L [id number] #### [facility] ([facility]) [address] [place] [address] Immature granulocytes/100 WBC (Bld) 0.7 % Normal 0.0-1.0 [facility] Comment on above: Performed By: #### L [id number] #### [facility] ([facility]) [address] [place] [address] Lymphocytes (Bld) [#/Vol] 1.16 10*3/uL Low 1.20-4.00 [facility] Comment on above: Performed By: #### L [id number] #### [facility] ([facility]) [address] [place] [address] Lymphocytes/100 WBC (Bld) 13.2 % Low 20.0-45.0 [facility] Comment on above: Performed By: #### L [id number] #### [facility] ([facility]) [address] [place] [address] MCH (RBC) [Entitic mass] 33.8 pg High 27.0-33.0 [facility] Comment on above: Performed By: #### L [id number] #### [facility] ([facility]) [address] [place] [address] MCV (RBC) [Entitic vol] 105.8 fL High 82.0-98.0 [facility] Comment on above: Performed By: #### L [id number] #### [facility] ([facility]) [address] [place] [address] Monocytes (Bld) [#/Vol] 0.46 10*3/uL Normal 0.10-1.00 [facility] Comment on above: Performed By: #### L [id number] #### [facility] ([facility]) [address] [place] [address] Monocytes/100 WBC (Bld) 5.2 % Normal 5.0-12.0 [facility] Comment on above: Performed By: #### L [id number] #### [facility] ([facility]) [address] [place] [address] Neutrophils (Bld) [#/Vol] 6.92 10*3/uL Normal 1.60-7.60 [facility] Comment on above: Performed By: #### L [id number] #### [facility] ([facility]) [address] [place] [address] Neutrophils/100 WBC (Bld) 78.5 % High 40.0-72.0 [facility] Comment on above: Performed By: #### L [id number] #### [facility] ([facility]) [address] [place] [address] NRBC (PER 100 WBCS) BY AUTOMATED COUNT 0.0 % Normal 0 [facility] Comment on above: Performed By: #### L [id number] #### [facility] ([facility]) [address] [place] [address] PLATELETS (10*3/UL) IN BLOOD AUTOMATED COUNT 166 10*3/uL Normal 150-400 [facility] Comment on above: Performed By: #### L [id number] #### [facility] ([facility]) [address] [place] [address] RBC (Bld) [#/Vol] 2.40 10*6/uL Low 4.20-5.70 [facility] Comment on above: Performed By: #### L [id number] #### [facility] ([facility]) [address] [place] [address] WBC (Bld) [#/Vol] 8.82 10*3/uL Normal 4.00-10.60 [facility] Comment on above: Performed By: #### L [id number] #### [facility] ([facility]) [address] [place] [address] MAGNESIUMon 07-30-2024 Magnesium [Mass/Vol] 1.7 mg/dL Low 1.9-2.7 [facility] Comment on above: Performed By: #### L [id number] #### [facility] ([facility]) [address] [place] [address] POCT GLUCOSE METER UNSOLICIT ED RESULTSon 07-30-2024 Glucose [Mass/Vol] 114 mg/dL High 70-105 [facility] Comment on above: Order Comment: Waive d Testing in the ED is performed under the ED CLIA certificate #[id number]. Result Comment: [email or web address] [email or web address] Performed By: #### L [id number] #### [facility] ([facility]) [address] [place] [address] 30on 07-29-2024 30 The patient is Moder ately Stable - Low risk of patient condition declining or worsening The patient's goals for the shift include Comfort, Rest The clinical goals for the shift include VSS Problem: Pain - Adult Goal: Verbalizes/displays adequate comfort level or baseline comfort level Outcome: Progressing Problem: Safety - Adult Goal: Free from fall injury Outcome: Progressing Problem: Discharge Planning Goal: Discharge to home or other facility with appropriate resources Outcome: Progressing Problem: Chronic Conditions and Co-morbidities Goal: Patient's chronic conditions and co-morbidity symptoms are monitored and maintained or improved Outcome: Progressing Problem: Respiratory - Adult Goal: Achieves optimal ventilation and oxygenation Outcome: Progressing Problem: Cardiovascular - Adult Goal: Maintains optimal cardiac output and hemodynamic stability Outcome: Progressing Problem: Skin/Tissue Integrity - Adult Goal: Skin integrity remains intact Outcome: Progressing Normal [facility] 30 The patient is Moder ately Stable - Low risk of patient condition declining or worsening The patient's goals for the shift include Comfort, Rest The clinical goals for the shift include VSS Problem: Pain - Adult Goal: Verbalizes/displays adequate comfort level or baseline comfort level Outcome: Not Progressing Problem: Gastrointestinal - Adult Goal: Maintains or returns to baseline bowel function Outcome: Not Progressing Problem: Infection - Adult Goal: Absence of infection during hospitalization Outcome: Not Progressing Normal [facility] BASIC METABOLIC PANELon 12- Anion gap [Moles/Vol] 10 mmol/L Normal 7-20 [facility] Comment on above: Performed By: #### L [id number] #### [facility] ([facility]) [address] [place] [address] Calcium [Mass/Vol] 8.3 mg/dL Low 8.6-10.3 [facility] Comment on above: Performed By: #### L [id number] #### [facility] ([facility]) [address] [place] [address] Chloride [Moles/Vol] 111 mmol/L High 98-107 [facility] Comment on above: Performed By: #### L [id number] #### [facility] ([facility]) [address] [place] [address] CO2 [Moles/Vol] 26 mmol/L Normal 21-31 [facility] Comment on above: Performed By: #### L [id number] #### [facility] ([facility]) [address] [place] [address] Creatinine [Mass/Vol] 3.07 mg/dL High 0.70-1.30 [facility] Comment on above: Performed By: #### L [id number] #### [facility] ([facility]) [address] [place] [address] GLOMERULAR FILTRATION RATE ML/MIN/1.73 SQ M.PREDICTED 19.9 mL/min/1.73m*2 Low >60.0 [facility] Comment on above: Result Comment: [facility]???s estimated glomerular filtration rate (eGFR) will no longer include consideration of race in its calculation. The National Kidney Foundation???s eGFR Task Force developed new recommendations for the estimation of the glomerular filtration rate in the [place] They recommend immediate implementation of the new equation refit without the race variable in all laboratories because the calculation does not include race. In addition to not including race in the calculation and reporting, it included diversity in its development, and has acceptable performance characteristics and potential consequences that do not disproportionately affect any one group of individuals. Performed By: #### L [id number] #### [facility] ([facility]) [address] [place] [address] Glucose [Mass/Vol] 182 mg/dL High 70-100 [facility] Comment on above: Performed By: #### L [id number] #### [facility] ([facility]) [address] [place] [address] Potassium [Moles/Vol] 3.9 mmol/L Normal 3.5-5.1 [facility] Comment on above: Performed By: #### L [id number] #### [facility] ([facility]) [address] [place] [address] Sodium [Moles/Vol] 143 mmol/L Normal 136-145 [facility] Comment on above: Performed By: #### L [id number] #### [facility] ([facility]) [address] [place] [address] Urea nitrogen [Mass/Vol] 36 mg/dL High 7-25 [facility] Comment on above: Performed By: #### L [id number] #### [facility] ([facility]) [address] [place] [address] UREA NITROGEN/CREATININE (MASS RATIO) IN SER/PLAS 11.7 Normal [facility] Comment on above: Performed By: #### L [id number] #### [facility] ([facility]) [address] [place] [address] CBC WITH AUTO DIFFERENTIALon 07-29-2024 Basophils (Bld) [#/Vol] 0.02 10*3/uL Normal 0.00-0.20 [facility] Comment on above: Performed By: #### L [id number] ####[facility] ([facility])[address] [place] [address] Basophils/100 WBC (Bld) 0.2 % Normal 0.0-1.0 [facility] Comment on above: Performed By: #### L [id number] ####[facility] ([facility])[address] [place] [address] Eosinophils (Bld) [#/Vol] 0.19 10*3/uL Normal 0.00-0.50 [facility] Comment on above: Performed By: #### L [id number] ####[facility] ([facility])[address] [place] [address] Eosinophils/100 WBC (Bld) 1.7 % Normal 0.0-6.0 [facility] Comment on above: Performed By: #### L [id number] ####[facility] ([facility])[address] [place] [address] Erythrocyte distribution width (RBC) [Ratio] 16.8 % High 11.5-15.0 [facility] Comment on above: Performed By: #### L [id number] ####[facility] ([facility])[address] [place] [address] ERYTHROCYTE MEAN CORPUSCULAR HEMOGLOBIN CONCENTRATION (G/DL) BY AUTOMATED 33.3 g/dL Normal 32.0-35.0 [facility] Comment on above: Performed By: #### L [id number] ####[facility] ([facility])[address] [place] [address] Hematocrit (Bld) [Volume fraction] 25.8 % Low 39.0-55.0 [facility] Comment on above: Performed By: #### L [id number] ####[facility] ([facility])[address] [place] [address] Hemoglobin (Bld) [Mass/Vol] 8.6 g/dL Low 13.0-17.0 [facility] Comment on above: Performed By: #### L [id number] ####[facility] ([facility])[address] [place] [address] Immature granulocytes (Bld) [#/Vol] 0.08 10*3/uL Normal 0.00-0.20 [facility] Comment on above: Performed By: #### L [id number] ####[facility] ([facility])[address] [place] [address] Immature granulocytes/100 WBC (Bld) 0.7 % Normal 0.0-1.0 [facility] Comment on above: Performed By: #### L [id number] ####[facility] ([facility])[address] [place] [address] Lymphocytes (Bld) [#/Vol] 0.74 10*3/uL Low 1.20-4.00 [facility] Comment on above: Performed By: #### L [id number] ####[facility] ([facility])[address] [place] [address] Lymphocytes/100 WBC (Bld) 6.4 % Low 20.0-45.0 [facility] Comment on above: Performed By: #### L [id number] ####[facility] ([facility])[address] [place] [address] MCH (RBC) [Entitic mass] 34.4 pg High 27.0-33.0 [facility] Comment on above: Performed By: #### L [id number] ####[facility] ([facility])[address] [place] [address] MCV (RBC) [Entitic vol] 103.2 fL High 82.0-98.0 [facility] Comment on above: Performed By: #### L [id number] ####[facility] [place] [address] Monocytes (Bld) [#/Vol] 0.54 10*3/uL Normal 0.10-1.00 [facility] Comment on above: Performed By: #### L [id number] ####[facility] ([facility])[address] [place] [address] Monocytes/100 WBC (Bld) 4.7 % Low 5.0-12.0 [facility] Comment on above: Performed By: #### L [id number] ####[facility] ([facility])[address] [place] [address] Neutrophils (Bld) [#/Vol] 10.01 10*3/uL High 1.60-7.60 [facility] Comment on above: Performed By: #### L [id number] ####[facility] [place] [address] Neutrophils/100 WBC (Bld) 87.0 % High 40.0-72.0 [facility] Comment on above: Performed By: #### L [id number] ####[facility] [place] [address] NRBC (PER 100 WBCS) BY AUTOMATED COUNT 0.0 % Normal 0 [facility] Comment on above: Performed By: #### L [id number] ####[facility] ([facility])[address] [place] [address] PLATELETS (10*3/UL) IN BLOOD AUTOMATED COUNT 163 10*3/uL Normal 150-400 [facility] Comment on above: Performed By: #### L [id number] ####[facility] ([facility])[address] [place] [address] RBC (Bld) [#/Vol] 2.50 10*6/uL Low 4.20-5.70 [facility] Comment on above: Performed By: #### L [id number] ####[facility] ([facility])[address] [place] [address] WBC (Bld) [#/Vol] 11.50 10*3/uL High 4.00-10.60 [facility] Comment on above: Performed By: #### L [id number] ####[facility] ([facility])[address] [place] [address] MAGNESIUMon 07-29-2024 Magnesium [Mass/Vol] 1.9 mg/dL Normal 1.9-2.7 [facility] Comment on above: Performed By: #### L [id number] ####[facility] ([facility])[address] [place] [address] POCT GLUCOSE METER UNSOLICIT ED RESULTSon 07-29-2024 Glucose [Mass/Vol] 123 mg/dL High 70-105 [facility] Comment on above: Order Comment: Waive d Testing in the ED is performed under the ED CLIA certificate #[id number]. Result Comment: [email or web address] Performed By: #### L [id number] #### [facility] ([facility]) [address] [place] [address] Glucose [Mass/Vol] 314 mg/dL High 70-105 [facility] Comment on above: Order Comment: Waive d Testing in the ED is performed under the ED CLIA certificate #[id number]. Result Comment: [email or web address] Performed By: #### L [id number] ####[facility] ([facility])[address] [place] [address] Glucose [Mass/Vol] 349 mg/dL High 70-105 [facility] Comment on above: Order Comment: Waive d Testing in the ED is performed under the ED CLIA certificate #[id number]. Result Comment: [email or web address] Performed By: #### L [id number] ####[facility] ([facility])[address] [place] [address] Glucose [Mass/Vol] 150 mg/dL High 70-105 [facility] Comment on above: Order Comment: Waive d Testing in the ED is performed under the ED CLIA certificate #[id number]. Result Comment: dgar row Performed By: #### L [id number] #### [facility] ([facility]) [address] [place] [address] Glucose [Mass/Vol] 156 mg/dL High 70-105 [facility] Comment on above: Order Comment: Waive d Testing in the ED is performed under the ED CLIA certificate #[id number]. Result Comment: dgar row Performed By: #### L [id number] ####[facility] ([facility])[address] [place] [address] 30on 07-28-2024 30 The patient is Moder ately Stable - Low risk of patient condition declining or worsening The patient's goals for the shift include safety, comfort The clinical goals for the shift include VSS,safety, comfort Normal [facility] Anesthesiaon 07-28-2024 Anesthesia [id number] Angel Cunningham 1945 [facility] Provider Department [place] 07/28/2024 [id number]-IOZGLBRENALDO MARTIN [facility] Medical C No family history on file Normal [facility] BASIC METABOLIC PANELon 07-17 Anion gap [Moles/Vol] 9 mmol/L Normal 7-20 [facility] Comment on above: Performed By: #### L [id number] ####[facility] ([facility])[address] [place] [address] Calcium [Mass/Vol] 7.9 mg/dL Low 8.6-10.3 [facility] Comment on above: Performed By: #### L [id number] ####[facility] ([facility])[address] [place] [address] Chloride [Moles/Vol] 109 mmol/L High 98-107 [facility] Comment on above: Performed By: #### L [id number] ####[facility] ([facility])[address] [place] [address] CO2 [Moles/Vol] 26 mmol/L Normal 21-31 [facility] Comment on above: Performed By: #### L [id number] ####[facility] ([facility])[address] [place] [address] Creatinine [Mass/Vol] 3.89 mg/dL High 0.70-1.30 [facility] Comment on above: Performed By: #### L [id number] ####[facility] ([facility])[address] [place] [address] GLOMERULAR FILTRATION RATE ML/MIN/1.73 SQ M.PREDICTED 15.0 mL/min/1.73m*2 Low >60.0 [facility] Comment on above: Result Comment: [facility]???s estimated glomerular filtration rate (eGFR) will no longer include consideration of race in its calculation. The National Kidney Foundation???s eGFR Task Force developed new recommendations for the estimation of the glomerular filtration rate in the [place] They recommend immediate implementation of the new equation refit without the race variable in all laboratories because the calculation does not include race. In addition to not including race in the calculation and reporting, it included diversity in its development, and has acceptable performance characteristics and potential consequences that do not disproportionately affect any one group of individuals. Performed By: #### L [id number] ####[facility] ([facility])[address] [place] [address] Glucose [Mass/Vol] 163 mg/dL High 70-100 [facility] Comment on above: Performed By: #### L [id number] ####[facility] ([facility])[address] [place] [address] Potassium [Moles/Vol] 4.2 mmol/L Normal 3.5-5.1 [facility] Comment on above: Performed By: #### L [id number] ####[facility] ([facility])[address] [place] [address] Sodium [Moles/Vol] 140 mmol/L Normal 136-145 [facility] Comment on above: Performed By: #### L [id number] ####[facility] ([facility])[address] [place] [address] Urea nitrogen [Mass/Vol] 46 mg/dL High 7-25 [facility] Comment on above: Performed By: #### L [id number] ####[facility] [place] [address] UREA NITROGEN/CREATININE (MASS RATIO) IN SER/PLAS 11.8 Normal [facility] Comment on above: Performed By: #### L [id number] ####[facility] [place] [address] CBC WITH AUTO DIFFERENTIALon 07-28-2024 Erythrocyte distribution width (RBC) [Ratio] 17.2 % High 11.5-15.0 [facility] Comment on above: Performed By: #### L [id number] #### [facility] ([facility]) [address] [place] [address] ERYTHROCYTE MEAN CORPUSCULAR HEMOGLOBIN CONCENTRATION (G/DL) BY AUTOMATED 32.9 g/dL Normal 32.0-35.0 [facility] Comment on above: Performed By: #### L [id number] #### [facility] ([facility]) [address] [place] [address] Hematocrit (Bld) [Volume fraction] 25.8 % Low 39.0-55.0 [facility] Comment on above: Performed By: #### L [id number] #### [facility] [address] [place] [address] Hemoglobin (Bld) [Mass/Vol] 8.5 g/dL Low 13.0-17.0 [facility] Comment on above: Performed By: #### L [id number] #### [facility] [address] [place] [address] MCH (RBC) [Entitic mass] 34.7 pg High 27.0-33.0 [facility] Comment on above: Performed By: #### L [id number] #### [facility] [address] [place] [address] MCV (RBC) [Entitic vol] 105.3 fL High 82.0-98.0 [facility] Comment on above: Performed By: #### L [id number] #### [facility] ([facility]) [address] [place] [address] NRBC (PER 100 WBCS) BY AUTOMATED COUNT 0.0 % Normal 0 [facility] Comment on above: Performed By: #### L [id number] #### [facility] ([facility]) [address] [place] [address] PLATELETS (10*3/UL) IN BLOOD AUTOMATED COUNT 161 10*3/uL Normal 150-400 [facility] Comment on above: Performed By: #### L [id number] #### [facility] ([facility]) [address] [place] [address] RBC (Bld) [#/Vol] 2.45 10*6/uL Low 4.20-5.70 [facility] Comment on above: Performed By: #### L [id number] #### [facility] ([facility]) [address] [place] [address] WBC (Bld) [#/Vol] 6.67 10*3/uL Normal 4.00-10.60 [facility] Comment on above: Performed By: #### L [id number] #### [facility] ([facility]) [address] [place] [address] MAGNESIUMon 07-28-2024 Magnesium [Mass/Vol] 2.1 mg/dL Normal 1.9-2.7 [facility] Comment on above: Performed By: #### L [id number] ####[facility] ([facility])[address] [place] [address] OPNOTEon 07-28-2024 OPNOTE CYSTOURETEROSCOPY, W ITH BILATERAL STENT EXCHANGE ; SUPRAPUBIC CATHETER EXCHANGE (B), URETEROSCOPY (B) Operative Note Date: 07/28/2024 Location: [facility] OR Name: Patsy Cunningham, : 1945, Diagnosis Pre-op Diagnosis * Acute kidney injury superimposed on CKD (CMS/HCC) [N17.9, N18.9] * Pyelonephritis [N12] Post-op Diagnosis * Acute kidney injury superimposed on CKD (CMS/HCC) [N17.9, N18.9] * Pyelonephritis [N12] Procedures * CYSTOURETEROSCOPY, WITH BILATERAL STENT EXCHANGE ; SUPRAPUBIC CATHETER EXCHANGE * URETEROSCOPY retrograde pyelogram on the right side Surgeons Primary: Franklyn Lau MD Resident - Assisting: Chad Munoz MD; Gerry Kaplan MD Procedure Summary Anesthesia: Monitor Anesthesia Care ASA: III Estimated Blood Loss: Minimal Total IV Fluids: 500 mL Drains: Suprapubic Catheter (Active) Site Assessment Clean;Dry;Intact 07/28/24 1558 Dressing Status Other (Comment) 07/28/24 1558 Dressing Type Open to air 07/28/24 1558 Collection Container Standard drainage bag 07/29/24 1038 Output (mL) 650 mL 07/29/24 1038 Implants Type Name Action Serial No. Stent STENT,URETERAL,SOFT,TRIA,7 X26 - [id number] Implanted Stent STENT,URETERAL,SOFT,TRIA,7 X26 - [id number] Implanted Staff: Mechanical Lead: Taryn Brooks RN Scrub Person: Harriett Ortiz CST Indications: Patsy Cunningham is an 79 y.o. male who is having surgery for Acute kidney injury superimposed on CKD (CMS/HCC) [N17.9, N18.9] Pyelonephritis [N12]. Patient has problems with multiple myeloma that under treatment. He had chronic ureteral stent for management of bilateral hydronephrosis. His hydronephrosis seems to be more likely secondary to contracted bladder with the presence of vesicoureteral reflux. He has chronic bilateral stents to manage the hydronephrosis from outside facility. He presented to the hospital with infection and acute renal failure. For this reason the decision was made to proceed with bilateral stent exchange. Risks and benefit were discussed with the patient in details who agreed to proceed. Procedure Details: The patient was seen in the preoperative area. The risks, benefits, complications, treatment options, non-operative alternatives, expected recovery and outcomes were discussed with the patient. The possibilities of reaction to medication, pulmonary aspiration, injury to surrounding structures, bleeding, recurrent infection, the need for additional procedures, failure to diagnose a condition, and creating a complication requiring transfusion or operation were discussed with the patient. The patient concurred with the proposed plan, giving informed consent. The site of surgery was properly noted/marked if necessary per policy. The patient has been actively warmed in preoperative area. Preoperative antibiotics have been ordered and given within 2 hours of incision. Venous thrombosis prophylaxis have been ordered including bilateral sequential compression devices Findings: contracted small bladder Both ureters are open wide but difficult to find because of the contracted bladder. There were edema around the UOs secondary to the presence of the stents. The patient admitted to the OR after provided with occasional consenting to behave position in lithotomy position. The patient is prepped and draped in regular fashion for the procedure. Timeouts performed and afterwards agreeable and preoperative antibiotics were confirmed and. Started by introducing a cystoscope with 30 degree lens with 22 F sheath. The Left UO is identified and is cannulated with zipwire 0.035 with the aid of dual lumen catheter. Once the guidewire is in the proper position we introduced a dual-lumen catheter to the lower end of the ureter. there was extreme difficulty to find the UO despite the presence of stents in place. This because of the contracted bladder. The bladder was not enabling us to fill the bladder to be able to visualize the stents and they think orifice. Once the left UO is identified we were able to place a dual-lumen in the ureteric orifice next to the stent. We fed a wire next to the stent which appeared to be going into the kidney. Next we remove the stent by stent grasper. Then over the wire we introduced the stent 7 x 26. We left a small string about 1 inch around the stent to be able to grasp the stent if migrated up secondary to the current abnormal anatomy of the patient. Once this is in position with shifted our attention to the right side. We could not identify the right ureter easy. For this reason we grasped the stent itself cautiously until we were able to bring it to the tip of the penis at the urethral meatus. We did feed the wire through the stent and we were able to remove the stent leaving the wire in place. We then proceeded with retrograde pyelogram RETROGRADE PYELOGRAM: Dual-lumen catheter is used for performing retrograde pyelogram. We inje (more content not included)... Normal [facility] POCT GLUCOSE METER UNSOLICIT ED RESULTSon 07-28-2024 Glucose [Mass/Vol] 196 mg/dL High 70-105 [facility] Comment on above: Order Comment: Waive d Testing in the ED is performed under the ED CLIA certificate #[id number]. Result Comment: dominguez chan Performed By: #### L [id number] #### [facility] ([facility]) [address] [place] [address] Glucose [Mass/Vol] 134 mg/dL High 70-105 [facility] Comment on above: Order Comment: Waive d Testing in the ED is performed under the ED CLIA certificate #[id number]. Result Comment: devon wade Performed By: #### L [id number] #### [facility] ([facility]) [address] [place] [address] Glucose [Mass/Vol] 132 mg/dL High 70-105 [facility] Comment on above: Order Comment: Waive d Testing in the ED is performed under the ED CLIA certificate #[id number]. Result Comment: devon wade Performed By: #### L [id number] #### [facility] ([facility]) [address] [place] [address] TEST MANUAL DIFFERENTIALon 1 09-28-2023 ANISOCYTOSIS PRESENCE IN BLOOD BY LIGHT MICROSCOPY Moderate Normal [facility] Comment on above: Performed By: #### L [id number] ####[facility] ([facility])[address] [place] [address] BASOPHILS (10*3/UL) IN BLOOD BY CALCULATION 0.00 10*3/uL Normal 0.00-0.20 [facility] Comment on above: Performed By: #### L [id number] ####[facility] ([facility])[address] [place] [address] BASOPHILS/100 LEUKOCYTES IN BLOOD BY MANUAL COUNT 0 % Normal 0-3 [facility] Comment on above: Performed By: #### L [id number] ####[facility] ([facility])[address] [place] [address] EOSINOPHILS (10*3/UL) IN BLOOD BY CALCULATION 0.53 10*3/uL High 0.00-0.[address] [facility] Comment on above: Performed By: #### L [id number] ####[facility] ([facility])[address] [place] [address] EOSINOPHILS/100 LEUKOCYTES IN BLOOD BY MANUAL COUNT 8 % High 0-6 [facility] Comment on above: Performed By: #### L [id number] ####[facility] ([facility])[address] [place] [address] LYMPHOCYTES (10*3/UL) IN BLOOD BY CALCULATION 0.93 10*3/uL Low 1.20-4.[address] [facility] Comment on above: Performed By: #### L [id number] ####[facility] ([facility])[address] [place] [address] LYMPHOCYTES/100 LEUKOCYTES IN BLOOD BY MANUAL COUNT 14 % Low 18-52 [facility] Comment on above: Performed By: #### L [id number] ####[facility] ([facility])[address] [place] [address] MONOCYTES (10*3/UL) IN BLOOD BY CALCUATION 0.27 10*3/uL Normal 0.10-1.00 [facility] Comment on above: Performed By: #### L [id number] ####[facility] ([facility])[address] [place] [address] MONOCYTES/100 LEUKOCYTES IN BLOOD BY MANUAL COUNT 4 % Normal 3-10 [facility] Comment on above: Performed By: #### L [id number] ####[facility] ([facility])[address] [place] [address] NEUTROPHILS (10*3/UL) IN BLOOD BY CALCULATION 4.9 10*3/uL Normal 1.6-7.[address] [facility] Comment on above: Performed By: #### L [id number] ####[facility] ([facility])[address] [place] [address] POIKILOCYTOSIS (PRESENCE) IN BLOOD BY LIGHT MICROSCOPY Few Normal [facility] Comment on above: Performed By: #### L [id number] ####[facility] ([facility])[address] [place] [address] POLYCHROMASIA IN BLOOD BY LIGHT MICROSCOPY Few Normal [facility] Comment on above: Performed By: #### L [id number] ####[facility] ([facility])[address] [place] [address] SEGEMENTED NEUTROPHILS/100 LEUKOCYTES BY MANUAL COUNT 74 % Normal 46-78 [facility] Comment on above: Performed By: #### L [id number] ####[facility] ([facility])[address] [place] [address] 30on 07-27-2024 30 The patient is Moder ately Stable - Low risk of patient condition declining or worsening The patient's goals for the shift include rest & comfort The clinical goals for the shift include comfort Normal [facility] 30 Daily Case Managemen t Update Multidisciplinary rounds have been completed. Barriers to Discharge: 07/27 Admitted from OSH for acute renal failure, may need to start HD. Bilateral ureteral stent placement tomorrow, suprapubic catheter in place. Pyelonephritis; continue rocephin, Cx pending. Urology and Nephrology team consulted; ordering CT. From home with . PT/OT=home. Diet: Dietary Orders (From admission, onward) Start Ordered 07/28/24 0001 Diet NPO Diet effective midnight Comments: Sips with medications Question: Reason for NPO: Answer: Operation/Procedure 07/27/24 0753 07/26/24 1008 Regular Diet Diabetic Male (carb 60g/meal) Diet effective now Question Answer Comment Room Service? Yes Carbohydrate restriction: Diabetic Male (carb 60g/meal) 07/26/24 1007 Physician Expected Discharge Date: 07/28/2024 Discharge Delays: PT Six Click Score: 20 OT Six Click Score: 19 PT Recommendations: Home OT Recommendations: Home New Consults: Consult Orders (From admission, onward) Start Ordered 07/24/24 1714 Inpatient consult to Nephrology Once Specialty: Nephrology Provider: (Not yet assigned) Question Answer Comment [facility] NEPHROLOGY TEAM Reason for Consult? worsening kidney function, eval for HD Level of Consultation Consultation and Management 07/24/24 1714 Therapy Orders (From admission, onward) Start Ordered 07/24/24 1837 OT eval and treat Until therapy completed Question: Reason for OT? Answer: D/C recs 07/24/24 1838 Normal [facility] BASIC METABOLIC PANELon 12- Anion gap [Moles/Vol] 11 mmol/L Normal 7-20 [facility] Comment on above: Performed By: #### L [id number] #### [facility] ([facility]) [address] [place] [address] Calcium [Mass/Vol] 7.8 mg/dL Low 8.6-10.3 [facility] Comment on above: Performed By: #### L [id number] #### [facility] ([facility]) [address] [place] [address] Chloride [Moles/Vol] 106 mmol/L Normal 98-107 [facility] Comment on above: Performed By: #### L [id number] #### [facility] ([facility]) [address] [place] [address] CO2 [Moles/Vol] 29 mmol/L Normal 21-31 [facility] Comment on above: Performed By: #### L [id number] #### [facility] ([facility]) [address] [place] [address] Creatinine [Mass/Vol] 4.98 mg/dL High 0.70-1.30 [facility] Comment on above: Performed By: #### L [id number] #### [facility] ([facility]) [address] [place] [address] GLOMERULAR FILTRATION RATE ML/MIN/1.73 SQ M.PREDICTED 11.2 mL/min/1.73m*2 Low >60.0 [facility] Comment on above: Result Comment: [facility]???s estimated glomerular filtration rate (eGFR) will no longer include consideration of race in its calculation. The National Kid[employer] Foundation???s eGFR Task Force developed new recommendations for the estimation of the glomerular filtration rate in the [place] They recommend immediate implementation of the new equation refit without the race variable in all laboratories because the calculation does not include race. In addition to not including race in the calculation and reporting, it included diversity in its development, and has acceptable performance characteristics and potential consequences that do not disproportionately affect any one group of individuals. Performed By: #### L [id number] #### [facility] ([facility]) [address] [place] [address] Glucose [Mass/Vol] 169 mg/dL High 70-100 [facility] Comment on above: Performed By: #### L [id number] #### [facility] ([facility]) [address] [place] [address] Potassium [Moles/Vol] 3.9 mmol/L Normal 3.5-5.1 [facility] Comment on above: Performed By: #### L [id number] #### [facility] ([facility]) [address] [place] [address] Sodium [Moles/Vol] 142 mmol/L Normal 136-145 [facility] Comment on above: Performed By: #### L [id number] #### [facility] ([facility]) [address] [place] [address] Urea nitrogen [Mass/Vol] 61 mg/dL High 7-25 [facility] Comment on above: Performed By: #### L [id number] #### [facility] ([facility]) [address] [place] [address] UREA NITROGEN/CREATININE (MASS RATIO) IN SER/PLAS 12.2 Normal [facility] Comment on above: Performed By: #### L [id number] #### [facility] ([facility]) [address] [place] [address] CBC WITH AUTO DIFFERENTIALon 07-27-2024 Basophils (Bld) [#/Vol] 0.02 10*3/uL Normal 0.00-0.20 [facility] Comment on above: Performed By: #### L [id number] ####[facility] ([facility])[address] [place] [address] Basophils/100 WBC (Bld) 0.4 % Normal 0.0-1.0 [facility] Comment on above: Performed By: #### L [id number] ####[facility] ([facility])[address] [place] [address] Eosinophils (Bld) [#/Vol] 0.32 10*3/uL Normal 0.00-0.50 [facility] Comment on above: Performed By: #### L [id number] ####[facility] ([facility])[address] [place] [address] Eosinophils/100 WBC (Bld) 6.0 % Normal 0.0-6.0 [facility] Comment on above: Performed By: #### L [id number] ####[facility] ([facility])[address] [place] [address] Erythrocyte distribution width (RBC) [Ratio] 15.0 % Normal 11.5-15.0 [facility] Comment on above: Performed By: #### L [id number] ####[facility] ([facility])[address] [place] [address] ERYTHROCYTE MEAN CORPUSCULAR HEMOGLOBIN CONCENTRATION (G/DL) BY AUTOMATED 32.7 g/dL Normal 32.0-35.0 [facility] Comment on above: Performed By: #### L [id number] ####[facility] ([facility])[address] [place] [address] Hematocrit (Bld) [Volume fraction] 21.1 % Low 39.0-55.0 [facility] Comment on above: Performed By: #### L [id number] ####[facility] ([facility])[address] [place] [address] Hemoglobin (Bld) [Mass/Vol] 6.9 g/dL Low 13.0-17.0 [facility] Comment on above: Performed By: #### L [id number] ####[facility] ([facility])[address] [place] [address] Immature granulocytes (Bld) [#/Vol] 0.04 10*3/uL Normal 0.00-0.20 [facility] Comment on above: Performed By: #### L [id number] ####[facility] ([facility])[address] [place] [address] Immature granulocytes/100 WBC (Bld) 0.7 % Normal 0.0-1.0 [facility] Comment on above: Performed By: #### L [id number] ####[facility] ([facility])[address] [place] [address] Lymphocytes (Bld) [#/Vol] 1.08 10*3/uL Low 1.20-4.00 [facility] Comment on above: Performed By: #### L [id number] ####[facility] ([facility])[address] [place] [address] Lymphocytes/100 WBC (Bld) 20.1 % Normal 20.0-45.0 [facility] Comment on above: Performed By: #### L [id number] ####[facility] ([facility])[address] [place] [address] MCH (RBC) [Entitic mass] 34.8 pg High 27.0-33.0 [facility] Comment on above: Performed By: #### L [id number] ####[facility] ([facility])[address] [place] [address] MCV (RBC) [Entitic vol] 106.6 fL High 82.0-98.0 [facility] Comment on above: Performed By: #### L [id number] ####[facility] ([facility])[address] [place] [address] Monocytes (Bld) [#/Vol] 0.41 10*3/uL Normal 0.10-1.00 [facility] Comment on above: Performed By: #### L [id number] ####[facility] ([facility])[address] [place] [address] Monocytes/100 WBC (Bld) 7.6 % Normal 5.0-12.0 [facility] Comment on above: Performed By: #### L [id number] ####[facility] [place] [address] Neutrophils (Bld) [#/Vol] 3.50 10*3/uL Normal 1.60-7.60 [facility] Comment on above: Performed By: #### L [id number] ####[facility] ([facility])[address] [place] [address] Neutrophils/100 WBC (Bld) 65.2 % Normal 40.0-72.0 [facility] Comment on above: Performed By: #### L [id number] ####[facility] ([facility])[address] [place] [address] NRBC (PER 100 WBCS) BY AUTOMATED COUNT 0.0 % Normal 0 [facility] Comment on above: Performed By: #### L [id number] ####[facility] ([facility])[address] [place] [address] PLATELETS (10*3/UL) IN BLOOD AUTOMATED COUNT 148 10*3/uL Low 150-400 [facility] Comment on above: Performed By: #### L [id number] ####[facility] ([facility])[address] [place] [address] RBC (Bld) [#/Vol] 1.98 10*6/uL Low 4.20-5.70 [facility] Comment on above: Performed By: #### L [id number] ####[facility] ([facility])[address] [place] [address] WBC (Bld) [#/Vol] 5.37 10*3/uL Normal 4.00-10.60 [facility] Comment on above: Performed By: #### L [id number] ####[facility] ([facility])[address] [place] [address] CT ABDOMEN PELVIS WO IV CONT RASTon 12-11-2024 CT ABDOMEN PELVIS WO IV CONTRAST History: Kidney failure, acute Renal failure, evaluate for signs of obstruction Renal failure, evaluate for signs of obstruction STUDY: Abdomen and pelvis CT without intravenous contrast CT ABDOMEN PELVIS WO IV CONTRAST COMPARISON: none TECHNIQUE: CT performed through the abdomen and pelvis without IV contrast .The lack of IV contrast compromises evaluation of the abdominal parenchymal organs, adenopathy, and bowel.Automated exposure control was utilized. FINDINGS: There are bilateral double-J ureter stents. There is gas within the right intrarenal collecting system which could be iatrogenic or could be due to a gas-forming organism. Moderately dilated intrarenal collecting systems which could be due to prior obstruction, reflux, or acute obstruction with nonfunctioning stents. Findings best assessed examination with other clinical data and comparison any outside studies if any exist Terminal ileum and appendix appropriate. No evidence for small bowel obstruction. Mildly distended small bowel loops suggest mild ileus Gallstones are demonstrated Multiple incidental calcified granulomas within the liver and spleen. Otherwise liver spleen pancreas and adrenal glands show no acute findings Bladder decompressed by a suprapubic catheter. IMPRESSION: There are bilateral double-J ureter stents. There is gas within the right intrarenal collecting system which could be iatrogenic or could be due to a gas-forming organism. Moderately dilated intrarenal collecting systems which could be due to prior obstruction, reflux, or acute obstruction with nonfunctioning stents. Findings best assessed examination with other clinical data and comparison any outside studies if any exist Consider repeat CT with oral and IV contrast if you suspect occult process All CT scans at this facility use dose modulation, iterative reconstruction, and/or weight based dosing when appropriate to reduce radiation dose to as low as reasonably achievable. Electronically signed: Ezequiel Dominguez. 5 Invalid Interpretation Code [facility] IRON AND TIBCon 07-27-2024 IRON (UG/DL) IN SER/PLAS 36 ug/dL Low 50-212 [facility] Comment on above: Performed By: #### L [id number] ####[facility] ([facility])[address] [place] [address] IRON BINDING CAPACITY (UG/DL) IN SER/PLAS 129 ug/dL Low 250-450 [facility] Comment on above: Performed By: #### L [id number] ####[facility] ([facility])[address] [place] [address] IRON BINDING CAPACITY.UNSATURATED (UG/DL) IN SER/PLAS 93.0 ug/dL Low 155.0-355. 0 [facility] Comment on above: Performed By: #### L [id number] ####[facility] ([facility])[address] [place] [address] IRON SATURATION (%) IN SER/PLAS 28 % Normal 20-50 [facility] Comment on above: Performed By: #### L [id number] ####[facility] ([facility])[address] [place] [address] MAGNESIUMon 07-27-2024 Magnesium [Mass/Vol] 1.8 mg/dL Low 1.9-2.7 [facility] Comment on above: Performed By: #### L [id number] #### [facility] ([facility]) [address] [place] [address] POCT GLUCOSE METER UNSOLICIT ED RESULTSon 07-27-2024 Glucose [Mass/Vol] 170 mg/dL High 70-105 [facility] Comment on above: Order Comment: Waive d Testing in the ED is performed under the ED CLIA certificate #[id number]. Result Comment: [email or web address] [email or web address] Performed By: #### L [id number] #### [facility] ([facility]) [address] [place] [address] Glucose [Mass/Vol] 119 mg/dL High 70-105 [facility] Comment on above: Order Comment: Waive d Testing in the ED is performed under the ED CLIA certificate #[id number]. Result Comment: [email or web address] Performed By: #### L [id number] ####[facility] ([facility])[address] [place] [address] Glucose [Mass/Vol] 168 mg/dL High 70-105 [facility] Comment on above: Order Comment: Waive d Testing in the ED is performed under the ED CLIA certificate #[id number]. Result Comment: [email or web address] [email or web address] Performed By: #### L [id number] #### [facility] ([facility]) [address] [place] [address] Glucose [Mass/Vol] 186 mg/dL High 70-105 [facility] Comment on above: Order Comment: Waive d Testing in the ED is performed under the ED CLIA certificate #[id number]. Result Comment: [email or web address] Performed By: #### L [id number] #### [facility] ([facility]) [address] [place] [address] TYPE AND SCREENon 07-27-2024 AB SCREEN Negative Normal [facility] Comment on above: Performed By: #### L [id number] #### [facility] ([facility]) [address] [place] [address] ABO group Nom (Bld) A Normal [facility] Comment on above: Performed By: #### L [id number] #### [facility] ([facility]) [address] [place] [address] RH TYPE IN BLOOD Positive Normal [facility] Comment on above: Performed By: #### L [id number] #### [facility] ([facility]) [address] [place] [address] 30on 07-26-2024 30 The patient is Moder ately Stable - Low risk of patient condition declining or worsening The patient's goals for the shift include safety, comfort The clinical goals for the shift include VSS Problem: Pain - Adult Goal: Verbalizes/displays adequate comfort level or baseline comfort level Outcome: Progressing Problem: Safety - Adult Goal: Free from fall injury Outcome: Progressing Flowsheets (Taken 07/26/20242005) Free from fall injury: Assess patient frequently for physical needs Problem: Discharge Planning Goal: Discharge to home or other facility with appropriate resources Outcome: Progressing Problem: Chronic Conditions and Co-morbidities Goal: Patient's chronic conditions and co-morbidity symptoms are monitored and maintained or improved Outcome: Progressing Normal [facility] 30 The patient is Moder ately Stable - Low risk of patient condition declining or worsening The patient's goals for the shift include comfort The clinical goals for the shift include vss Normal [facility] BASIC METABOLIC PANELon 07-17 Anion gap [Moles/Vol] 13 mmol/L Normal 7-20 [facility] Comment on above: Performed By: #### L [id number] #### [facility] ([facility]) [address] [place] [address] Calcium [Mass/Vol] 8.0 mg/dL Low 8.6-10.3 [facility] Comment on above: Performed By: #### L [id number] #### [facility] ([facility] [facility] [address] [place] [address] Chloride [Moles/Vol] 108 mmol/L High 98-107 [facility] Comment on above: Performed By: #### L [id number] #### [facility] ([facility]) [address] [place] [address] CO2 [Moles/Vol] 21 mmol/L Normal 21-31 [facility] Comment on above: Performed By: #### L [id number] #### [facility] ([facility]) [address] [place] [address] Creatinine [Mass/Vol] 6.28 mg/dL High 0.70-1.30 [facility] [place] Comment on above: Performed By: #### L [id number] #### [facility] ([facility]) [address] [place] [address] GLOMERULAR FILTRATION RATE ML/MIN/1.73 SQ M.PREDICTED 8.4 mL/min/1.73m*2 Low >60.0 [facility] Comment on above: Result Comment: [facility]???s estimated glomerular filtration rate (eGFR) will no longer include consideration of race in its calculation. The National Kidney Foundation???s eGFR Task Force developed new recommendations for the estimation of the glomerular filtration rate in the [place] They recommend immediate implementation of the new equation refit without the race variable in all laboratories because the calculation does not include race. In addition to not including race in the calculation and reporting, it included diversity in its development, and has acceptable performance characteristics and potential consequences that do not disproportionately affect any one group of individuals. Performed By: #### L [id number] #### [facility] ([facility]) [address] [place] [address] Glucose [Mass/Vol] 123 mg/dL High 70-100 [facility] Comment on above: Performed By: #### L [id number] #### [facility] ([facility]) [address] [place] [address] Potassium [Moles/Vol] 4.2 mmol/L Normal 3.5-5.1 [facility] [place] Comment on above: Performed By: #### L [id number] #### [facility] ([facility]) [address] [place] [address] Sodium [Moles/Vol] 138 mmol/L Normal 136-145 [facility] Comment on above: Performed By: #### L [id number] #### [facility] ([facility]) [address] [place] [address] Urea nitrogen [Mass/Vol] 71 mg/dL High 7-25 [facility] Comment on above: Performed By: #### L [id number] #### [facility] ([facility]) [address] [place] [address] UREA NITROGEN/CREATININE (MASS RATIO) IN SER/PLAS 11.3 Normal [facility] Comment on above: Performed By: #### L [id number] #### [facility] ([facility]) [address] [place] [address] CBC WITH AUTO DIFFERENTIALon 07-26-2024 Basophils (Bld) [#/Vol] 0.02 10*3/uL Normal 0.00-0.20 [facility] Comment on above: Performed By: #### L [id number] #### [facility] ([facility]) [address] [place] [address] Basophils/100 WBC (Bld) 0.3 % Normal 0.0-1.0 [facility] Comment on above: Performed By: #### L [id number] #### [facility] ([facility]) [address] [place] [address] Eosinophils (Bld) [#/Vol] 0.32 10*3/uL Normal 0.00-0.50 [facility] Comment on above: Performed By: #### L [id number] #### [facility] [address] [place] [address] Eosinophils/100 WBC (Bld) 4.0 % Normal 0.0-6.0 [facility] Comment on above: Performed By: #### L [id number] #### [facility] ([facility]) [address] [place] [address] Erythrocyte distribution width (RBC) [Ratio] 15.3 % High 11.5-15.0 [facility] Comment on above: Performed By: #### L [id number] #### [facility] ([facility]) [address] [place] [address] ERYTHROCYTE MEAN CORPUSCULAR HEMOGLOBIN CONCENTRATION (G/DL) BY AUTOMATED 32.9 g/dL Normal 32.0-35.0 [facility] Comment on above: Performed By: #### L [id number] #### [facility] ([facility]) [address] [place] [address] Hematocrit (Bld) [Volume fraction] 22.2 % Low 39.0-55.0 [facility] Comment on above: Performed By: #### L [id number] #### [facility] [address] [place] [address] Hemoglobin (Bld) [Mass/Vol] 7.3 g/dL Low 13.0-17.0 [facility] Comment on above: Performed By: #### L [id number] #### [facility] ([facility]) [address] [place] [address] Immature granulocytes (Bld) [#/Vol] 0.06 10*3/uL Normal 0.00-0.20 [facility] Comment on above: Performed By: #### L [id number] #### [facility] ([facility]) [address] [place] [address] Immature granulocytes/100 WBC (Bld) 0.8 % Normal 0.0-1.0 [facility] Comment on above: Performed By: #### L [id number] #### [facility] [address] [place] [address] Lymphocytes (Bld) [#/Vol] 0.98 10*3/uL Low 1.20-4.00 [facility] Comment on above: Performed By: #### L [id number] #### [facility] ([facility]) [address] [place] [address] Lymphocytes/100 WBC (Bld) 12.3 % Low 20.0-45.0 [facility] Comment on above: Performed By: #### L [id number] #### [facility] ([facility]) [address] [place] [address] MCH (RBC) [Entitic mass] 36.1 pg High 27.0-33.0 [facility] Comment on above: Performed By: #### L [id number] #### [facility] ([facility]) [address] [place] [address] MCV (RBC) [Entitic vol] 109.9 fL High 82.0-98.0 [facility] Comment on above: Performed By: #### L [id number] #### [facility] ([facility]) [address] [place] [address] Monocytes (Bld) [#/Vol] 0.53 10*3/uL Normal 0.10-1.00 [facility] Comment on above: Performed By: #### L [id number] #### [facility] [address] [place] [address] Monocytes/100 WBC (Bld) 6.7 % Normal 5.0-12.0 [facility] Comment on above: Performed By: #### L [id number] #### [facility] [address] [place] [address] Neutrophils (Bld) [#/Vol] 6.03 10*3/uL Normal 1.60-7.60 [facility] Comment on above: Performed By: #### L [id number] #### [facility] ([facility]) [address] [address] Neutrophils/100 WBC (Bld) 75.9 % High 40.0-72.0 [facility] Comment on above: Performed By: #### L [id number] #### [facility] ([facility]) [address] [address] NRBC (PER 100 WBCS) BY AUTOMATED COUNT 0.0 % Normal 0 [facility] Comment on above: Performed By: #### L [id number] #### [facility] ([facility]) [address] [address] PLATELETS (10*3/UL) IN BLOOD AUTOMATED COUNT 146 10*3/uL Low 150-400 [facility] Comment on above: Performed By: #### L [id number] #### [facility] ([facility]) [address] [address] RBC (Bld) [#/Vol] 2.02 10*6/uL Low 4.20-5.70 [facility] Comment on above: Performed By: #### L [id number] #### [facility] ([facility]) [address] [address] WBC (Bld) [#/Vol] 7.94 10*3/uL Normal 4.00-10.60 [facility] Comment on above: Performed By: #### L [id number] #### [facility] ([facility]) [address] [place] [address] MAGNESIUMon 07-26-2024 Magnesium [Mass/Vol] 1.9 mg/dL Normal 1.9-2.7 [facility] Comment on above: Performed By: #### L [id number] ####[facility] ([facility])[address] [place] [address] POCT GLUCOSE METER UNSOLICIT ED RESULTSon 07-26-2024 Glucose [Mass/Vol] 167 mg/dL High 70-105 [facility] Comment on above: Order Comment: Waive d Testing in the ED is performed under the ED CLIA certificate #[id number]. Result Comment: jazz itn Performed By: #### L [id number] ####[facility] ([facility])[address] [place] [address] Glucose [Mass/Vol] 207 mg/dL High 70-105 [facility] Comment on above: Order Comment: Waive d Testing in the ED is performed under the ED CLIA certificate #[id number]. Result Comment: dnap ier3 Performed By: #### L [id number] #### [facility] ([facility]) [address] [place] [address] Glucose [Mass/Vol] 146 mg/dL High 70-105 [facility] Comment on above: Order Comment: Waive d Testing in the ED is performed under the ED CLIA certificate #[id number]. Result Comment: sdib ling Performed By: #### L [id number] #### [facility] ([facility]) [address] [place] [address] Glucose [Mass/Vol] 139 mg/dL High 70-105 [facility] Comment on above: Order Comment: Waive d Testing in the ED is performed under the ED CLIA certificate #[id number]. Result Comment: dnap ier3 Performed By: #### L [id number] #### [facility] ([facility]) [address] [place] [address] 30on 07-25-2024 30 The patient is Moder ately Stable - Low risk of patient condition declining or worsening The patient's goals for the shift include comfort The clinical goals for the shift include vss Problem: Pain - Adult Goal: Verbalizes/displays adequate comfort level or baseline comfort level Outcome: Progressing Problem: Safety - Adult Goal: Free from fall injury Outcome: Progressing Problem: Discharge Planning Goal: Discharge to home or other facility with appropriate resources Outcome: Progressing Problem: Chronic Conditions and Co-morbidities Goal: Patient's chronic conditions and co-morbidity symptoms are monitored and maintained or improved Outcome: Progressing Normal [facility] 30 Daily Case Managemen t Update Multidisciplinary rounds have been completed. Barriers to Discharge: Pending clinical course and improvement in clinical condition. Admitted for Worsening RINA. Per notes-Need for nuclear scan with possible ureteral stent. Creatinine continues to worsen despite IV fluids. pyelonephritis status post completed therapy with IV antibiotics. Urology and Nephrology team consulted. Await recommendations regarding initiation of hemodialysis. Diet: Dietary Orders (From admission, onward) Start Ordered 07/25/24 0001 Diet NPO Diet effective midnight Comments: Sips with medications Question: Reason for NPO: Answer: Operation/Procedure 07/24/24 171 Physician Expected Discharge Date: 07/28/2024 Discharge Delays: PT Six Click Score: 24 OT Six Click Score: PT Recommendations: OT Recommendations: New Consults: Consult Orders (From admission, onward) Start Ordered 07/24/24 1715 Inpatient consult to Urology Once Specialty: Urology Provider: (Not yet assigned) Question Answer Comment [facility] UROLOGY TEAM Reason for Consult? Need for nuclear scan with potential stent Level of Consultation Consultation and Management 07/24/24 1714 07/24/24 1714 Inpatient consult to Nephrology Once Specialty: Nephrology Provider: (Not yet assigned) Question Answer Comment [facility] NEPHROLOGY TEAM Reason for Consult? worsening kidney function, eval for HD Level of Consultation Consultation and Management 07/24/24 1714 Ancillary Consults (From admission, onward) Start Ordered 07/24/24 1837 Inpatient Consult to Social Work Once Provider: (Not yet assigned) Question Answer Comment Is discharge planning needed? If yes, who is requesting discharge planning? Provider Select all services needed for the patient Other Other: d/c planning 07/24/24 1838 Therapy Orders (From admission, onward) Start Ordered 07/24/24 1837 PT eval and treat Until therapy completed Question: Reason for PT? Answer: D/c recs 07/24/24 1838 07/24/24 1837 OT eval and treat Until therapy completed Question: Reason for OT? Answer: D/C recs 07/24/24 1838 Normal [facility] 30 The patient is Moder ately Stable - Low risk of patient condition declining or worsening The patient's goals for the shift include comfort The clinical goals for the shift include VSS Normal [facility] BASIC METABOLIC PANELon 12-0 Anion gap [Moles/Vol] 11 mmol/L Normal 7-20 [facility] Comment on above: Performed By: #### L [id number] #### [facility] ([facility]) [address] [place] [address] Calcium [Mass/Vol] 8.5 mg/dL Low 8.6-10.3 [facility] Comment on above: Performed By: #### L [id number] #### [facility] ([facility]) [address] [place] [address] Chloride [Moles/Vol] 111 mmol/L High 98-107 [facility] Comment on above: Performed By: #### L [id number] #### [facility] ([facility]) [address] [place] [address] CO2 [Moles/Vol] 20 mmol/L Low 21-31 [facility] Comment on above: Performed By: #### L [id number] #### [facility] ([facility]) [address] [place] [address] Creatinine [Mass/Vol] 6.22 mg/dL High 0.70-1.30 [facility] [place] Comment on above: Performed By: #### L [id number] #### [facility] ([facility]) [address] [place] [address] GLOMERULAR FILTRATION RATE ML/MIN/1.73 SQ M.PREDICTED 8.5 mL/min/1.73m*2 Low >60.0 [facility] Comment on above: Result Comment: [facility]???s estimated glomerular filtration rate (eGFR) will no longer include consideration of race in its calculation. The National Kidney Foundation???s eGFR Task Force developed new recommendations for the estimation of the glomerular filtration rate in the [place] They recommend immediate implementation of the new equation refit without the race variable in all laboratories because the calculation does not include race. In addition to not including race in the calculation and reporting, it included diversity in its development, and has acceptable performance characteristics and potential consequences that do not disproportionately affect any one group of individuals. Performed By: #### L [id number] #### [facility] ([facility]) [address] [place] [address] Glucose [Mass/Vol] 187 mg/dL High 70-100 [facility] Comment on above: Performed By: #### L [id number] #### [facility] ([facility]) [address] [place] [address] Potassium [Moles/Vol] 5.2 mmol/L High 3.5-5.1 [facility] Comment on above: Performed By: #### L [id number] #### [facility] ([facility]) [address] [place] [address] Sodium [Moles/Vol] 137 mmol/L Normal 136-145 [facility] Comment on above: Performed By: #### L [id number] #### [facility] ([facility]) [address] [place] [address] Urea nitrogen [Mass/Vol] 75 mg/dL High 7-25 [facility] Comment on above: Performed By: #### L [id number] #### [facility] ([facility]) [address] [place] [address] UREA NITROGEN/CREATININE (MASS RATIO) IN SER/PLAS 12.1 Normal [facility] Comment on above: Performed By: #### L [id number] #### [facility] ([facility]) [address] [place] [address] CBC WITH AUTO DIFFERENTIALon 07-25-2024 Basophils (Bld) [#/Vol] 0.02 10*3/uL Normal 0.00-0.20 [facility] Comment on above: Performed By: #### L [id number] #### [facility] ([facility]) [address] [place] [address] Basophils/100 WBC (Bld) 0.3 % Normal 0.0-1.0 [facility] Comment on above: Performed By: #### L [id number] #### [facility] [address] [place] [address] Eosinophils (Bld) [#/Vol] 0.49 10*3/uL Normal 0.00-0.50 [facility] Comment on above: Performed By: #### L [id number] #### [facility] ([facility]) [address] [place] [address] Eosinophils/100 WBC (Bld) 6.9 % High 0.0-6.0 [facility] Comment on above: Performed By: #### L [id number] #### [facility] ([facility]) [address] [place] [address] Erythrocyte distribution width (RBC) [Ratio] 15.3 % High 11.5-15.0 [facility] Comment on above: Performed By: #### L [id number] #### [facility] ([facility]) [address] [place] [address] ERYTHROCYTE MEAN CORPUSCULAR HEMOGLOBIN CONCENTRATION (G/DL) BY AUTOMATED 32.6 g/dL Normal 32.0-35.0 [facility] Comment on above: Performed By: #### L [id number] #### [facility] ([facility]) [address] [place] [address] Hematocrit (Bld) [Volume fraction] 23.6 % Low 39.0-55.0 [facility] Comment on above: Performed By: #### L [id number] #### [facility] ([facility]) [address] [place] [address] Hemoglobin (Bld) [Mass/Vol] 7.7 g/dL Low 13.0-17.0 [facility] Comment on above: Performed By: #### L [id number] #### [facility] [address] [place] [address] Immature granulocytes (Bld) [#/Vol] 0.06 10*3/uL Normal 0.00-0.20 [facility] Comment on above: Performed By: #### L [id number] #### [facility] [address] [place] [address] Immature granulocytes/100 WBC (Bld) 0.8 % Normal 0.0-1.0 [facility] Comment on above: Performed By: #### L [id number] #### [facility] ([facility]) [address] [place] [address] Lymphocytes (Bld) [#/Vol] 0.95 10*3/uL Low 1.20-4.00 [facility] Comment on above: Performed By: #### L [id number] #### [facility] ([facility]) [address] [place] [address] Lymphocytes/100 WBC (Bld) 13.3 % Low 20.0-45.0 [facility] Comment on above: Performed By: #### L [id number] #### [facility] ([facility]) [address] [place] [address] MCH (RBC) [Entitic mass] 34.8 pg High 27.0-33.0 [facility] Comment on above: Performed By: #### L [id number] #### [facility] ([facility]) [address] [place] [address] MCV (RBC) [Entitic vol] 106.8 fL High 82.0-98.0 [facility] Comment on above: Performed By: #### L [id number] #### [facility] ([facility]) [address] [place] [address] Monocytes (Bld) [#/Vol] 0.63 10*3/uL Normal 0.10-1.00 [facility] Comment on above: Performed By: #### L [id number] #### [facility] ([facility]) [address] [place] [address] Monocytes/100 WBC (Bld) 8.8 % Normal 5.0-12.0 [facility] Comment on above: Performed By: #### L [id number] #### [facility] ([facility]) [address] [place] [address] Neutrophils (Bld) [#/Vol] 5.00 10*3/uL Normal 1.60-7.60 [facility] Comment on above: Performed By: #### L [id number] #### [facility] ([facility]) [address] [place] [address] Neutrophils/100 WBC (Bld) 69.9 % Normal 40.0-72.0 [facility] Comment on above: Performed By: #### L [id number] #### [facility] ([facility]) [address] [place] [address] NRBC (PER 100 WBCS) BY AUTOMATED COUNT 0.0 % Normal 0 [facility] Comment on above: Performed By: #### L [id number] #### [facility] ([facility]) [address] [place] [address] PLATELETS (10*3/UL) IN BLOOD AUTOMATED COUNT 148 10*3/uL Low 150-400 [facility] Comment on above: Performed By: #### L [id number] #### [facility] ([facility]) [address] [place] [address] RBC (Bld) [#/Vol] 2.21 10*6/uL Low 4.20-5.70 [facility] Comment on above: Performed By: #### L [id number] #### [facility] ([facility]) [address] [place] [address] WBC (Bld) [#/Vol] 7.15 10*3/uL Normal 4.00-10.60 [facility] Comment on above: Performed By: #### L [id number] #### [facility] ([facility]) [address] [place] [address] CONSULTon 07-25-2024 CONSULT Nephrology Consult N otheena Patient : Patsy Cunningham; 79 y.o. Location: Attending: Cris Devries DO Admit Date: 07/24/2024 Hospital Day: 1 Reason for Consult: RINA on CKD. Appreciate recommendations regarding initiation of hemodialysis. History of Present Illness: Patsy Cunningham is a 79 y.o. male with past medical history of CKD, diabetes, multiple myeloma status post bone marrow transplantation/chemothera py and past urologic history of BPH, Eucha 6 prostate cancer under active surveillance, chronic retention status post SP tube placement exchanged every 3 weeks (last exchanged 2 weeks ago), chronic bilateral hydronephrosis managed by chronic indwelling ureteral stents exchanged every 3 [address] in [place] who presents as transfer from [facility] with acute renal failure and worsening creatinine. Patient originally presented to OSH on 07/20/24 with increasing fatigue, weakness, subjective fever, decreased urinary output with cloudy urine, mild suprapubic tenderness. At that time, labs showing WBC of 22, lactate of 2.4 and creatinine of 4.4 (baseline 2.2). Patient had a CT performedat OSH which showed signs of cystitis and mild bilateral hydronephrosiswith indwelling ureteral stents in appropriate position. Patient was transferred from [facility] as they required higher level of care related to need for nuclear scan for assessment of obstruction as well as potential initiation of hemodialysis. Patient's potassium has remained stable with worsening creatinine from 4 initially to 6 today despite continuous IV fluids. Patient's vitals have remained stable. Hemoglobin has been decreasing 10 on admission 07/20 and 7.7 today. Significant renal history/events: Review of Systems: Review of Systems Constitutional: Negative for fatigue and fever. HENT: Negative for congestion and sore throat. Eyes: Negative for visual disturbance. Respiratory: Negative for cough, chest tightness and shortness of breath. Cardiovascular: Negative for chest pain, palpitations and leg swelling. Gastrointestinal: Negative for abdominal pain, constipation and diarrhea. Genitourinary: Negative for flank pain, hematuria and urgency. Urine remains cloudy Musculoskeletal: Negative for arthralgias and myalgias. Skin: Negative for rash. Neurological: Negative for tremors, light-headedness and headaches. Psychiatric/Behavioral: Negative for confusion. The patient is not nervous/anxious. Input/Output: I/O last 3 completed shifts: In: - (0 mL/kg) Out: 1400 (15.1 mL/kg) [Urine:1400 (0.4 mL/kg/hr)] Weight: 93 kg Vital Signs: Temperature: Temp: 36.6 ???C (97.9 ???F) TMax: Temp (24hrs), Av.6 ???C (97.8 ???F), Min:36.5 ???C (97.7 ???F), Max:36.6 ???C (97.9 ???F) Respirations: Resp: 21 Pulse: Heart Rate: 61 BP: BP: 131/59 BP Range: Systolic (24hrs), Av , Min:131 , Max:169 Diastolic (24hrs), Av, Min:59, Max:72 Wt Readings from Last 3 Encounters: 07/24/24 93 kg (205 lb) Physical Examination: Physical Exam Constitutional: Appearance: Normal appearance. HENT: Head: Normocephalic. Eyes: Extraocular Movements: Extraocular movements intact. Conjunctiva/sclera: Conjunctivae normal. Pupils: Pupils are equal, round, and reactive to light. Cardiovascular: Rate and Rhythm: Normal rate and regular rhythm. Pulses: Normal pulses. Heart sounds: Normal heart sounds. Pulmonary: Effort: Pulmonary effort is normal. Breath sounds: Normal breath sounds. Abdominal: General: There is no distension. Tenderness: There is abdominal tenderness (mild, suprapubic). There is no right CVA tenderness or left CVA tenderness. Comments: Suprapubic catheter in place draining cloudy urine Musculoskeletal: Right lower leg: Edema present. Left lower leg: Edema present. Skin: General: Skin is warm and dry. Coloration: Skin is not jaundiced. Findings: No rash. Neurological: General: No focal deficit present. Mental Status: He is alert and oriented to person, place, and time. Psychiatric: Mood and Affect: Mood normal. Behavior: Behavior normal. Labs: Chemistry: Lab Results Component Value Date NA 137 07/25/2024 K 5.2 (H) 07/25/2024 CL 111 (H) 07/25/2024 CO2 20 (L) 07/25/2024 ANIONGAP 11 07/25/2024 BUN 75 (H) 07/25/2024 CREATININE 6.22 (H) 07/25/2024 EGFR 8.5 (L) 07/25/2024 CALCIUM 8.5 (L) 07/25/2024 MG 2.0 07/25/2024 Hematology & Iron studies: Lab Results Component Value Date WBC 7.15 07/25/2024 HGB 7.7 (L) 07/25/2024 HCT 23.6 (L) 07/25/2024 MCV 106.8 (H) 07/25/2024 PLT 148 (L) 07/25/2024 Urine chemistry: Lab Results Component Value Date PROTUR 30 (A) 07/25/2024 PROTUR 81.2 07/25/2024 CREATUR 44.0 07/25/2024 NAUR 94 07/25/2024 Urinalysis & Microscopy: Lab Results Component Value Date COLORU Dark-Yellow (A) 07/25/2024 CLARITYU Turbid (A) 07/25/2024 SPECGRAVU 1.008 (L) 07/25/2024 NOÉ 6. (more content not included)... [facility] CONSULT ------ -- Attestation signed by Franklyn Lau MD at 07/28/2024 5:33 PM I personally saw and examined the patient on the same date of service as resident/fellow saw the patient. I discussed the findings and therapeutic plan which is reflected on the plan in the note. I agree with the documentation -- Urology Consultation Patient: Patsy Cunningham Date of : 1945 REASON FOR CONSULT acute renal failure, chronic hydronephrosis managed with chronic indwelling bilateral ureteral stents HISTORY OF PRESENT ILLNESS: The patient is a 79 y.o. 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 Lane in [place] who presents as transfer from OSH with acute renal failure and worsening creatinine. Patient originally presented to OSH on 07/20/24 with increasing fatigue, weakness, subjective fever, decreased urinary output with cloudy urine, mild suprapubic tenderness. At that time, labs showing WBC of 22, lactate of 2.4 andcreatinine of 4.4 (baseline 2.2). Patient had a CT performed at OSH which showed signs of cystitis and mild bilateral hydronephrosis with indwelling ureteral stents in appropriate position. Labs today showing WBC 7.15, hemoglobin 7.7, creatinine 6.22, potassium 5.2. Renal ultrasound was ordered and currently pending. Urology consulted for acute renal failure in the setting of likely urosepsis. On evaluation, patient is afebrile and hemodynamically stable currently. Patient is resting comfortably in bed and in no acute distress. Patient has suprapubic tube in place draining cloudy yellow urine. Patient currently endorses mild suprapubic tenderness but denies fever or chills currently. Patient states suprapubic tube is exchanged every 3 weeks and last exchange was 2 weeks ago. Patient currently denies shortness of breath, chest pain, flank pain, constipation or diarrhea. Past Medical History: No past medical history on file. Past Surgical History: No past surgical history on file. Previous surgery: Status post SP tube placement for chronic retention and chronic bilateral ureteral stents for chronic hydronephrosis Medications: [Held by provider] heparin (porcine), 5,000 Units, subcutaneous, q12h EMMA insulin lispro, 0-10 Units, subcutaneous, TID with meals And insulin lispro, 0-8 Units, subcutaneous, Nightly Oxygen Therapy, , inhalation, Continuous sodium zirconium cyclosilicate, 10 g, oral, TID sodium bicarbonate 150 mEq in sterile water 1,000 mL infusion, 75 mL/hr PRN medications: acetaminophen, glucose OR dextrose 50 % in water (D50W), melatonin, ondansetron ODT OR ondansetron, sennosides-docusate sodium Allergies: Patient has no allergy information on record. Social History: Social History Socioeconomic History Marital status: Not on file Spouse name: Not on file Number of children: Not on file Years of education: Not on file Highest education level: Not on file Occupational History Not on file Tobacco Use Smoking status: Former Current packs/day: 0.00 Types: Cigarettes Quit date: 1999 Years since quittin.9 Passive exposure: Past Smokeless tobacco: Never Substance and Sexual Activity Alcohol use: Not on file Drug use: Not on file Sexual activity: Not on file Other Topics Concern Not on file Social History Narrative Not on file Social Determinants of Health Financial Resource Strain: Low Risk (07/24/2024) Overall Financial Resource Strain (CARDIA) Difficulty of Paying Living Expenses: Not hard at all Food Insecurity: No Food Insecurity (07/24/2024) Hunger Vital Sign Worried About Running Out of Food in the Last Year: Never true Ran Out of Food in the Last Year: Not on file Transportation Needs: No Transportation Needs (07/24/2024) Transportation Lack of Transportation (Medical): No Lack of Transportation (Non-Medical): Not on file Physical Activity: Not on file Stress: Not on file Social Connections: Not on file Intimate Partner Violence: Unknown (07/24/2024) Humiliation, Afraid, Rape, and Kick questionnaire Fear of Current or Ex-Partner: No Emotionally Abused: Not on file Physically Abused: Not on file Sexually Abused: Not on file Housing Stability: Low Risk (07/24/2024) Housing Stability Vital Sign Unable to Pay for Housing in the Last Year: Not on file Number of Times Moved in the Last Year: Not on file Homeless in the Last Year: No Family History: No (more content not included)... Normal [facility] CREATININE, URINE, RANDOMon 07-25-2024 Creatinine (U) [Mass/Vol] 44.0 mg/dL Normal 26-299 [facility] Comment on above: Performed By: #### L [id number] #### [facility] ([facility]) [address] [place] [address] MAGNESIUMon 07-25-2024 Magnesium [Mass/Vol] 2.0 mg/dL Normal 1.9-2.7 [facility] Comment on above: Performed By: #### L [id number] #### [facility] ([facility]) [address] [place] [address] POCT GLUCOSE METER UNSOLICIT ED RESULTSon 07-25-2024 Glucose [Mass/Vol] 137 mg/dL High 70-105 [facility] Comment on above: Order Comment: Waive d Testing in the ED is performed under the ED CLIA certificate #[id number]. Result Comment: jazz [email or web address] Performed By: #### L [id number] ####[facility] ([facility])[address] [place] [address] Glucose [Mass/Vol] 234 mg/dL High 70-105 [facility] Comment on above: Order Comment: Waive d Testing in the ED is performed under the ED CLIA certificate #[id number]. Result Comment: [email or web address] Performed By: #### L [id number] #### [facility] ([facility]) [address] [place] [address] Glucose [Mass/Vol] 150 mg/dL High 70-105 [facility] Comment on above: Order Comment: Waive d Testing in the ED is performed under the ED CLIA certificate #[id number]. Result Comment: [email or web address] Performed By: #### L [id number] #### [facility] ([facility]) [address] [place] [address] POTASSIUMon 07-25-2024 Potassium [Moles/Vol] 4.8 mmol/L Normal 3.5-5.1 [facility] [place] Comment on above: Performed By: #### L [id number] #### [facility] ([facility]) [address] [place] [address] PROTEIN, URINE, RANDOMon Protein (U) [Mass/Vol] 81.2 mg/dL Normal [facility] Comment on above: Result Comment: Ther e are no established reference values for random urine specimens. Performed By: #### L [id number] ####[facility] ([facility])[address] [place] [address] SODIUM, URINE, RANDOMon 12-0 Sodium (U) [Moles/Vol] 94 mmol/L Normal Un [facility] Comment on above: Performed By: #### L [id number] #### [facility] ([facility]) [address] [place] [address] URINALYSIS WITH MICROSCOPICo n 07-25-2024 BILIRUBIN, TOTAL PRESENCE IN URINE Negative Normal Negative [facility] Comment on above: Performed By: #### L [id number] ####[facility] ([facility])[address] [place] [address] Clarity (U) Turbid Abnormal Clear [facility] Comment on above: Performed By: #### L [id number] ####[facility] ([facility])[address] [place] [address] Color (U) Dark-Yellow Abnormal Colorless, Yellow, Light-Bath ow [facility] Comment on above: Performed By: #### L [id number] ####[facility] ([facility])[address] [place] [address] Glucose (U) [Mass/Vol] 70 mg/dL Abnormal Normal [facility] Comment on above: Performed By: #### L [id number] ####[facility] ([facility])[address] [facility] [place] [address] HEMOGLOBIN PRESENCE IN URINE Large Abnormal Negative [facility] Comment on above: Performed By: #### L [id number] ####[facility] ([facility])[address] [facility] [place] [address] Ketones Ql (U) Negative Normal Negative [facility] Comment on above: Performed By: #### L [id number] ####[facility] ([facility])[address] [facility] [place] [address] LEUKOCYTE ESTERASE PRESENCE IN URINE BY TEST STRIP Large Abnormal Negative [facility] Comment on above: Performed By: #### L [id number] ####[facility] ([facility])[address] [place] [address] NITRITE PRESENCE IN URINE Negative Normal Negative [facility] Comment on above: Performed By: #### L [id number] ####[facility] ([facility])[address] [place] [address] pH (U) 6.0 [pH] Normal 5.0-8.0 [facility] Comment on above: Performed By: #### L [id number] ####[facility] ([facility])[address] [place] [address] Protein (U) [Mass/Vol] 30 mg/dL Abnormal Negative [facility] [place] Comment on above: Performed By: #### L [id number] ####[facility] ([facility])[address] [place] [address] RBC (#/HPF) IN URINE SEDIMENT >20 Abnormal None Seen, 0-2 [facility] Comment on above: Performed By: #### L [id number] ####[facility] ([facility])[address] [place] [address] Specific gravity (U) [Rel density] 1.008 Low 1.010-1.03 0 [facility] Comment on above: Performed By: #### L [id number] ####[facility] ([facility])[address] [place] [address] SQUAMOUS EPITHELIAL CELLS (#/LPF) IN URINE SEDIMENT None Seen Normal None Seen, Occasional , Few [facility] Comment on above: Performed By: #### L [id number] ####[facility] ([facility])[address] [place] [address] UROBILINOGEN (MG/DL) IN URINE Normal Normal Normal [facility] Comment on above: Performed By: #### L [id number] ####[facility] ([facility])[address] [place] [address] WBC (LEUKOCYTE) (#/HPF) IN URINE SEDIMENT >50 Abnormal None Seen, 0-2 [facility] Comment on above: Performed By: #### L [id number] ####[facility] ([facility])[address] [place] [address] WBC (LEUKOCYTE) CLUMPS (#/HPF) IN URINE SEDIMENT Present Abnormal None Seen [facility] Comment on above: Performed By: #### L [id number] ####[facility] ([facility])[address] [place] [address] 30on 07-24-2024 30 The patient is Moder ately Stable - Low risk of patient condition declining or worsening The patient's goals for the shift include The clinical goals for the shift include VSS. rest Normal [facility] BASIC METABOLIC PANELon 12 Anion gap [Moles/Vol] 14 mmol/L Normal 7-20 [facility] Comment on above: Performed By: #### L [id number] #### [facility] ([facility]) [address] [place] [address] Calcium [Mass/Vol] 8.9 mg/dL Normal 8.6-10.3 [facility] Comment on above: Performed By: #### L [id number] #### [facility] ([facility]) [address] [place] [address] Chloride [Moles/Vol] 111 mmol/L High 98-107 [facility] Comment on above: Performed By: #### L [id number] #### [facility] [address] [place] [address] CO2 [Moles/Vol] 17 mmol/L Low 21-31 [facility] Comment on above: Performed By: #### L [id number] #### [facility] [address] [place] [address] Creatinine [Mass/Vol] 6.20 mg/dL High 0.70-1.30 [facility] Comment on above: Performed By: #### L [id number] #### [facility] ([facility]) [address] [place] [address] GLOMERULAR FILTRATION RATE ML/MIN/1.73 SQ M.PREDICTED 8.6 mL/min/1.73m*2 Low >60.0 [facility] Comment on above: Result Comment: The [facility]???s estimated glomerular filtration rate (eGFR) will no longer include consideration of race in its calculation. The National Kidney Foundation???s eGFR Task Force developed new recommendations for the estimation of the glomerular filtration rate in the [place] They recommend immediate implementation of the new equation refit without the race variable in all laboratories because the calculation does not include race. In addition to not including race in the calculation and reporting, it included diversity in its development, and has acceptable performance characteristics and potential consequences that do not disproportionately affect any one group of individuals. Performed By: #### L [id number] #### [facility] ([facility]) [address] [place] [address] Glucose [Mass/Vol] 158 mg/dL High 70-100 [facility] Comment on above: Performed By: #### L [id number] #### [facility] ([facility]) [address] [place] [address] Potassium [Moles/Vol] 5.1 mmol/L Normal 3.5-5.1 [facility] Comment on above: Performed By: #### L [id number] #### [facility] ([facility]) [address] [place] [address] Sodium [Moles/Vol] 137 mmol/L Normal 136-145 [facility] Comment on above: Performed By: #### L [id number] #### [facility] [address] [place] [address] Urea nitrogen [Mass/Vol] 74 mg/dL High 7-25 [facility] Comment on above: Performed By: #### L [id number] #### [facility] [address] [place] [address] UREA NITROGEN/CREATININE (MASS RATIO) IN SER/PLAS 11.9 Normal [facility] Comment on above: Performed By: #### L [id number] #### [facility] [address] [place] [address] CBCon 07-24-2024 Erythrocyte distribution width (RBC) [Ratio] 15.6 % High 11.5-15.0 [facility] Comment on above: Performed By: #### L [id number] #### [facility] ([facility]) [address] [place] [address] ERYTHROCYTE MEAN CORPUSCULAR HEMOGLOBIN CONCENTRATION (G/DL) BY AUTOMATED 31.8 g/dL Low 32.0-35.0 [facility] Comment on above: Performed By: #### L [id number] #### [facility] ([facility]) [address] [place] [address] Hematocrit (Bld) [Volume fraction] 25.8 % Low 39.0-55.0 [facility] Comment on above: Performed By: #### L [id number] #### [facility] ([facility]) [address] [place] [address] Hemoglobin (Bld) [Mass/Vol] 8.2 g/dL Low 13.0-17.0 [facility] Comment on above: Performed By: #### L [id number] #### [facility] ([facility]) [address] [place] [address] MCH (RBC) [Entitic mass] 34.7 pg High 27.0-33.0 [facility] Comment on above: Performed By: #### L [id number] #### [facility] ([facility]) [address] [place] [address] MCV (RBC) [Entitic vol] 109.3 fL High 82.0-98.0 [facility] Comment on above: Performed By: #### L [id number] #### [facility] [address] [place] [address] PLATELETS (10*3/UL) IN BLOOD AUTOMATED COUNT 152 10*3/uL Normal 150-400 [facility] Comment on above: Performed By: #### L [id number] #### [facility] ([facility]) [address] [place] [address] RBC (Bld) [#/Vol] 2.36 10*6/uL Low 4.20-5.70 [facility] Comment on above: Performed By: #### L [id number] #### [facility] ([facility]) [address] [place] [address] WBC (Bld) [#/Vol] 7.08 10*3/uL Normal 4.00-10.60 [facility] Comment on above: Performed By: #### L [id number] #### [facility] ([facility]) [address] [place] [address] HPon 07-24-2024 HP This report has been cancelled. Normal [facility] MAGNESIUMon 07-24-2024 Magnesium [Mass/Vol] 2.1 mg/dL Normal 1.9-2.7 [facility] Comment on above: Performed By: #### L [id number] #### [facility] ([facility]) [address] [place] [address] POCT GLUCOSE METER UNSOLICIT ED RESULTSon 07-24-2024 Glucose [Mass/Vol] 213 mg/dL High 70-105 [facility] Comment on above: Order Comment: Waive d Testing in the ED is performed under the ED CLIA certificate #[id number]. Result Comment: [email or web address] itn Performed By: #### L [id number] ####[facility] ([facility])[address] [place] [address] Alanine aminotransferase [En zymatic activity/volume] in Serum or PlasmaOrdered By: Brook Huddleston on 06-23-2024 ALT [Catalytic activity/Vol] Alanine aminotransferase [Enzymatic activity/volume] in Serum or Plasma [facility] Albumin [Mass/volume] in Ser um or Plasma by Bromocresol green (BCG) dye binding methoOrdered By: Brook Huddleston on 06-23-2024 Albumin BCG dye [Mass/Vol] Albumin [Mass/volume] in Serum or Plasma by Bromocresol green (BCG) dye binding metho 3.5-5.7 [facility] Alkaline phosphatase [Enzyma tic activity/volume] in Serum or PlasmaOrdered By: Brook Huddleston on 06-23-2024 ALP [Catalytic activity/Vol] Alkaline phosphatase [Enzymatic activity/volume] in Serum or Plasma High 34-104 [facility] Aspartate aminotransferase [ Enzymatic activity/volume] in Serum or PlasmaOrdered By: Brook Huddleston on 06-23-2024 AST [Catalytic activity/Vol] Aspartate aminotransferase [Enzymatic activity/volume] in Serum or Plasma 13-39 [facility] Basophils Auto (Bld) [#/Vol] Ordered By: Brook Huddleston on 06-23-2024 Basophils (Bld) [#/Vol] Automated basophil count 0.0-0.2 [facility] Basophils/100 WBC Auto (Bld) Ordered By: Brook Huddleston on 06-23-2024 Basophils/100 WBC (Bld) Automated basophil % . [facility] Bilirubin.total [Mass/volume ] in Serum or PlasmaOrdered By: Brook Huddleston on 06-23-2024 Bilirubin [Mass/Vol] Bilirubin.total [Mass/volume] in Serum or Plasma 0.3-1.0 [facility] CBC W Auto Differential pane l (Bld)on 06-23-2024 Basophils (Bld) [#/Vol] 0 10*3/uL 0.0 - 0.2 10*3/uL [facility] Basophils/100 WBC Manual cnt (Syn fld) 0.3 % . [facility] Eosinophils (Bld) [#/Vol] 0.4 10*3/uL 0.0 - 0.45 10*3/uL [facility] Eosinophils/100 WBC Manual cnt (Syn fld) 7 % . [facility] Erythrocyte distribution width (RBC) [Ratio] 16.8 % High 12.0 - 14.8 % [facility] Hematocrit (Bld) [Volume fraction] 30.5 % Low 38.8 - 50.0 % [facility] Hemoglobin (Bld) [Mass/Vol] 10.1 g/dL Low 13.0 - 17.0 g/dL [facility] Interpretation and review of laboratory results Abnormal [facility] Lymphocytes (Bld) [#/Vol] 0.7 10*3/uL Low 1.00 - 4.8 10*3/uL [facility] Lymphocytes/100 WBC Manual cnt (Syn fld) 13 % . [facility] MCH (RBC) [Entitic mass] 35.5 pg High 27.5 - 35.2 pg [facility] MCHC (RBC) [Mass/Vol] 33.1 g/dL 32.5 - 35.6 g/dL [facility] MCV (RBC) [Entitic vol] 107.2 fL High 83.5 - 101 fL [facility] Monocytes (Bld) [#/Vol] 0.4 10*3/uL 0.0 - 0.8 10*3/uL [facility] Monocytes+Macrophages/1 00 WBC Manual cnt (Syn fld) 7.1 % . [facility] Neutrophils (Bld) [#/Vol] 4 10*3/uL 1.8 - 7.7 10*3/uL [facility] Neutrophils/100 WBC Manual cnt (Syn fld) 72.6 % . [facility] NRBC 0.1 /100{WBC} 0 - 0.5 /100{WBC} [facility] Platelet mean volume (Bld) [Entitic vol] 8.1 fL 6.6 - 10.1 fL [facility] Platelets (Bld) [#/Vol] 183 10*3/uL 150 - 450 10*3/uL [facility] RBC LM.HPF (Urine sed) [#/Area] 2.84 /[HPF] Low 3.90 - 5.60 [facility] WBC (Bld) [#/Vol] 5.5 10*3/uL 4.1 - 10.5 10*3/uL [facility] WBC LM.HPF (Urine sed) [#/Area] 5.5 10*3/uL 4.1 - 10.5 10*3/uL [facility] Calcium [Mass/volume] in Ser um or PlasmaOrdered By: Brook Huddleston on 06-23-2024 Calcium [Mass/Vol] Calcium [Mass/volume ] in Serum or Plasma 8.6-10.3 [facility] Carbon dioxide, total [Moles /volume] in Serum or PlasmaOrdered By: Brook Huddleston on 06-23-2024 CO2 [Moles/Vol] Carbon dioxide, tota l [Moles/volume] in Serum or Plasma 21.0-31.0 [facility] Chloride [Moles/volume] in S valeria or PlasmaOrdered By: Brook Huddleston on 06-23-2024 Chloride [Moles/Vol] Chloride [Moles/vol ume] in Serum or Plasma High 98-107 [facility] Complete Blood Count Auto Di ffon 06-23-2024 Basophils (Bld) [#/Vol] 0.0 10*3/uL Normal 0.0-0.2 [facility] Comment on above: Result Comment: PERF ORMED BY:[address] [place] [id number] MEDICAL DIRECTORMEAGAN HARDING M.D. Performed By: #### C MP, CBC ####[address] Basophils/100 WBC (Bld) 0.3 % Normal . [facility] Comment on above: Performed By: #### C MP, CBC ####[address] Eosinophils (Bld) [#/Vol] 0.4 10*3/uL Normal 0.0-0.45 [facility] Comment on above: Performed By: #### C MP, CBC ####[address] Eosinophils/100 WBC (Bld) 7.0 % Normal . [facility] Comment on above: Performed By: #### C MP, CBC ####[address] Erythrocyte distribution width (RBC) [Ratio] 16.8 % High 12.0-14.8 [facility] Comment on above: Performed By: #### C MP, CBC ####[address] Hematocrit (Bld) [Volume fraction] 30.5 % Low 38.8-50.0 [facility] Comment on above: Performed By: #### C MP, CBC ####[address] Hemoglobin (Bld) [Mass/Vol] 10.1 g/dL Low 13.0-17.0 [facility] Comment on above: Performed By: #### C MP, CBC ####[address] Lymphocytes (Bld) [#/Vol] 0.7 10*3/uL Low 1.00-4.8 [facility] Comment on above: Performed By: #### C MP, CBC ####[address] Lymphocytes/100 WBC (Bld) 13.0 % Normal . [facility] Comment on above: Performed By: #### C MP, CBC ####[address] MCH (RBC) [Entitic mass] 35.5 pg High 27.5-35.2 [facility] [facility] Comment on above: Performed By: #### C MP, CBC ####[address] MCV (RBC) [Entitic vol] 107.2 fL High 83.5-101 [facility] Comment on above: Performed By: #### C MP, CBC ####[address] Mean Corpuscular HGB Conc 33.1 g/dL Normal 32.5-35.6 [facility] Comment on above: Performed By: #### C MP, CBC ####[address] Monocytes (Bld) [#/Vol] 0.4 10*3/uL Normal 0.0-0.8 [facility] Comment on above: Performed By: #### C MP, CBC ####[address] Monocytes/100 WBC (Bld) 7.1 % Normal . [facility] Comment on above: Performed By: #### C MP, CBC ####[address] [address] [facility] Neutrophils (Bld) [#/Vol] 4.0 10*3/uL Normal 1.8-7.7 [facility] Comment on above: Performed By: #### C MP, CBC ####[place] [id number] [facility] Neutrophils/100 WBC (Bld) 72.6 % Normal . [facility] Comment on above: Performed By: #### C MP, CBC ####[address] NRBC% 0.1 /100{WBC} Normal 0-0.5 [facility] Comment on above: Performed By: #### C MP, CBC ####[address] Platelet mean volume (Bld) [Entitic vol] 8.1 fL Normal 6.6-10.1 [facility] Comment on above: Performed By: #### C MP, CBC ####[address] Platelets (Bld) [#/Vol] 183 10*3/uL Normal 150-450 [facility] Comment on above: Performed By: #### C MP, CBC ####[place] [id number] [facility] RBC (Bld) [#/Vol] 2.84 10*6/uL Low 3.90-5.60 [facility] Comment on above: Performed By: #### C MP, CBC ####[place] [id number] [facility] WBC (Bld) [#/Vol] 5.5 10*3/uL Normal 4.1-10.5 [facility] Comment on above: Performed By: #### C MP, CBC ####[place] [id number] [facility] Comprehensive Metabolic Pane mana 06-23-2024 Albumin [Mass/Vol] 3.9 g/dL Normal 3.5-5.7 [facility] Comment on above: Performed By: #### C MP, CBC ####[address] [address] [facility] Albumin/Globulin [Mass ratio] 1.6 {ratio} Normal [facility] Comment on above: Performed By: #### C MP, CBC ####[address] [address] [facility] ALP [Catalytic activity/Vol] 131 U/L High 34-104 [facility] Comment on above: Performed By: #### C MP, CBC ####[address] [address] [facility] ALT [Catalytic activity/Vol] 34 U/L Normal 7-52 [facility] Comment on above: Performed By: #### C MP, CBC ####[address] [address] [facility] Anion gap [Moles/Vol] 11.1 mmol/L Normal 6.0-15.0 [facility] Comment on above: Performed By: #### C MP, CBC ####[address] [address] [facility] AST [Catalytic activity/Vol] 26 U/L Normal 13-39 [facility] Comment on above: Performed By: #### C MP, CBC ####[address] [address] [facility] Bilirubin [Mass/Vol] 0.5 mg/dL Normal 0.3-1.0 [facility] Comment on above: Performed By: #### C MP, CBC ####[address] [address] [facility] Calcium [Mass/Vol] 8.6 mg/dL Normal 8.6-10.3 [facility] Comment on above: Performed By: #### C MP, CBC ####[address] [address] [facility] Chloride [Moles/Vol] 108 mmol/L High 98-107 [facility] Comment on above: Performed By: #### C MP, CBC ####[place] [address] [place] [id number] [facility] CO2 [Moles/Vol] 23.7 mmol/L Normal 21.0-31.0 [facility] Comment on above: Performed By: #### C MP, CBC ####[place] [id number] [facility] Creatinine [Mass/Vol] 2.29 mg/dL High 0.70-1.30 [facility] Comment on above: Performed By: #### C MP, CBC ####[place] [id number] [facility] Creatinine Clr Calc Pharmacy 29.52 Normal [facility] Comment on above: Result Comment: PERF ORMED BY:[address] [place], [place] [id number] MEDICAL ANYA HARDING M.D. Performed By: #### C MP, CBC ####[address] GFR/1.73 sq M.predicted MDRD (S/P/Bld) [Vol rate/Area] 28.327 mL/min/{1.73_m2} Normal [facility] Comment on above: Performed By: #### C MP, CBC ####[place] [id number] [facility] Globulin (S) [Mass/Vol] 2.4 g/dL Normal T [facility] Comment on above: Performed By: #### C MP, CBC ####[place] [id number] [facility] Glucose [Mass/Vol] 205 mg/dL High 70-100 [facility] Comment on above: Result Comment: Ignacio om Glucose Reference Range is dependent on time and content of last meal. Glucose of more than 200 mg/dL in a nonstressed, ambulatory subject supports the diagnosis of Diabetes Mellitus. ADA recommended reference range Performed By: #### C MP, CBC ####[place] [id number] [facility] Potassium [Moles/Vol] 4.8 mmol/L Normal 3.5-5.1 [facility] Comment on above: Performed By: #### C MP, CBC ####[facility] [address] Protein [Mass/Vol] 6.3 g/dL Low 6.4-8.9 [facility] Comment on above: Performed By: #### C MP, CBC ####[facility] [address] Sodium [Moles/Vol] 138 mmol/L Normal 136-145 [facility] Comment on above: Performed By: #### C MP, CBC ####[place] [id number] Urea nitrogen [Mass/Vol] 27 mg/dL High 7-25 [facility] Comment on above: Performed By: #### C MP, CBC ####[facility] [address] Comprehensive metabolic pane mana 06-23-2024 Albumin [Mass/Vol] 3.9 g/dL 3.5 - 5.7 g/dL [facility] Albumin/Globulin [Mass ratio] 1.6 {ratio} [facility] ALP [Catalytic activity/Vol] 131 U/L High 34 - 104 U/L [facility] ALT [Catalytic activity/Vol] 34 U/L 7 - 52 U/L [facility] Anion gap [Moles/Vol] 11.1 mmol/L 6.0 - 15.0 [facility] AST [Catalytic activity/Vol] 26 U/L 13 - 39 U/L [facility] Bilirubin [Mass/Vol] 0.5 mg/dL 0.3 - 1 .0 mg/dL [facility] Calcium [Mass/Vol] 8.6 mg/dL 8.6 - 10. 3 mg/dL [facility] Chloride [Moles/Vol] 108 mmol/L High 98 - 10 7 mmol/L [facility] CO2 [Moles/Vol] 23.7 mmol/L 21.0 - 31.0 mmol/L [facility] Creatinine (U) [Mass/Vol] 2.29 mg/dL High 0.70 - 1.30 mg/dL [facility] CREATININE CLR CALC PHARMACY 29.52 [facility] GFR/1.73 sq M.predicted MDRD (S/P/Bld) [Vol rate/Area] 28.327 mL/min/{1.73_m2} [facility] Globulin (S) [Mass/Vol] 2.4 g/dL N [facility] Glucose [Mass/Vol] 205 mg/dL High 70 - 100 mg/dL [facility] Comment on above: Random Glucose Refer ence Range is dependent on time and content of last meal. Glucose of more than 200 mg/dL in a nonstressed, ambulatory subject supports the diagnosis of Diabetes Mellitus. ADA recommended reference range Interpretation and review of laboratory results Abnormal [facility] Potassium [Moles/Vol] 4.8 mmol/L 3.5 - 5.1 mmol/L [facility] Protein [Mass/Vol] 6.3 g/dL Low 6.4 - 8.9 g/dL [facility] Sodium [Moles/Vol] 138 mmol/L 136 - 145 mmol/L [facility] Urea nitrogen [Mass/Vol] 27 mg/dL High 7 - 25 mg/dL [facility] Creatinine [Mass/volume] in Serum or PlasmaOrdered By: Brook Huddleston on 06-23-2024 Creatinine [Mass/Vol] Creatinine [Mass/v olume] in Serum or Plasma High 0.70-1.30 [facility] Creatinine [Mass/volume] in UrineOrdered By: Price Crain on 06-23-2024 Creatinine (U) [Mass/Vol] Creatinine [Mass/volume] in Urine [facility] Eosinophils Auto (Bld) [#/Vo l]Ordered By: Brook Huddleston on 06-23-2024 Eosinophils (Bld) [#/Vol] Automated eosinophil count 0.0-0.45 [facility] Eosinophils/100 WBC Auto (Bl d)Ordered By: Brook Huddleston on 06-23-2024 Eosinophils/100 WBC (Bld) Automated eosinophil % . [facility] Erythrocyte distribution wid th Auto (RBC) [Ratio]Ordered By: Brook Huddleston on 06-23-2024 Erythrocyte distribution width (RBC) [Ratio] Erythrocyte distribution width [Ratio] by Automated count High 12.0-14.8 [facility] Globulin Calc (S) [Mass/Vol] Ordered By: Brook Huddleston on 06-23-2024 Globulin (S) [Mass/Vol] Serum globulin m easurement by calculation (mass/volume) [facility] Glucose [Mass/volume] in Ser um or PlasmaOrdered By: Brook Huddleston on 06-23-2024 Glucose [Mass/Vol] Glucose [Mass/volume ] in Serum or Plasma High 70-100 [facility] Hematocrit Auto (Bld) [Volum e fraction]Ordered By: Brook Huddleston on 06-23-2024 Hematocrit (Bld) [Volume fraction] Hematocrit [Volume Fraction] of Blood by Automated count Low 38.8-50.0 [facility] Hemoglobin [Mass/volume] in BloodOrdered By: Brook Huddleston on 06-23-2024 Hemoglobin (Bld) [Mass/Vol] Hemoglobin [Mass/volume] in Blood Low 13.0-17.0 [facility] Leukocytes [#/volume] correc lizbet for nucleated erythrocytes in Blood by Automated counOrdered By: Brook Huddleston on 06-23-2024 WBC corrected for nucl RBC Auto (Bld) [#/Vol] Leukocytes [#/volume] corrected for nucleated erythrocytes in Blood by Automated coun 4.1-10.5 [facility] Lymphocytes Auto (Bld) [#/Vo l]Ordered By: Brook Huddleston on 06-23-2024 Lymphocytes (Bld) [#/Vol] Lymphocytes [#/volume] in Blood by Automated count Low 1.00-4.8 [facility] Lymphocytes/100 WBC Auto (Bl d)Ordered By: Brook Huddleston on 06-23-2024 Lymphocytes/100 WBC (Bld) Lymphocytes/100 leukocytes in Blood by Automated count . [facility] MCH Auto (RBC) [Entitic mass ]Ordered By: Brook Huddleston on 06-23-2024 MCH (RBC) [Entitic mass] MCH [Entitic mass] by Automated count High 27.5-35.2 [facility] MCHC Auto (RBC) [Mass/Vol]Or dered By: Brook Huddleston on 06-23-2024 MCHC (RBC) [Mass/Vol] MCHC [Mass/volume] by Automated count 32.5-35.6 [facility] MCV Auto (RBC) [Entitic vol] Ordered By: Brook Huddleston on 06-23-2024 MCV (RBC) [Entitic vol] MCV [Entitic vol ume] by Automated count High 83.5-101 [facility] Magnesiumon 06-23-2024 Magnesium [Mass/Vol] 2.2 mg/dL Normal 1.9-2.7 [facility] Comment on above: Performed By: #### M G, URIC, [id number], PHOS, PTH ####[facility] [id number] [place] [id number] [facility] Magnesium [Mass/volume] in S valeria or PlasmaOrdered By: Price Crain on 06-23-2024 Magnesium [Mass/Vol] Magnesium [Mass/vol ume] in Serum or Plasma 1.9-2.7 [facility] Monocytes Auto (Bld) [#/Vol] Ordered By: Brook Huddleston on 06-23-2024 Monocytes (Bld) [#/Vol] Automated blood monocyte count 0.0-0.8 [facility] Monocytes/100 WBC Auto (Bld) Ordered By: Brook Huddleston on 06-23-2024 Monocytes/100 WBC (Bld) Automated monocyte % . [facility] Neutrophils Auto (Bld) [#/Vo l]Ordered By: Brook Huddleston on 06-23-2024 Neutrophils (Bld) [#/Vol] Neutrophils [#/volume] in Blood by Automated count 1.8-7.7 [facility] Neutrophils/100 WBC Auto (Bl d)Ordered By: Brook Huddleston on 06-23-2024 Neutrophils/100 WBC (Bld) Automated neutrophil % . [facility] No Panel InformationOrdered By: Brook Huddleston on 06-23-2024 28.327 mL/Min [facility] 29.52 [facility] Nucleated erythrocytes [Pres ence] in Blood by Automated countOrdered By: Brook Huddleston on 06-23-2024 Nucleated RBC Auto Ql (Bld) Nucleated erythrocytes [Presence] in Blood by Automated count 0-0.5 [facility] Parathyrin.intact [Mass/volu me] in Serum or PlasmaOrdered By: Price Crain on 06-23-2024 Parathyrin.intact [Mass/Vol] Parathyrin.intact [Mass/volume] in Serum or Plasma [facility] Parathyroid Hormone Intacton 06-23-2024 Parathyroid Hormone Intact 65.4 pg/mL Normal [facility] Comment on above: Result Comment: PERF ORMED BY:[address] [place], [place] [phone] MEDICAL DIRECTORMEAGAN HARDING M.D. Performed By: #### M G, URIC, [id number], PHOS, PTH ####[place] [id number] [place] [address] [facility] Phosphate [Mass/volume] in S valeria or PlasmaOrdered By: Price Crain on 06-23-2024 Phosphate [Mass/Vol] Phosphate [Mass/vol ume] in Serum or Plasma 2.5-4.5 [facility] Phosphoruson 06-23-2024 Phosphate [Mass/Vol] 2.7 mg/dL Normal 2.5-4.5 [facility] Comment on above: Performed By: #### M G, URIC, [id number], PHOS, PTH ####[address] [address] [facility] Platelet mean volume Auto (B ld) [Entitic vol]Ordered By: Brook Huddleston on 06-23-2024 Platelet mean volume (Bld) [Entitic vol] Platelet mean volume [Entitic volume] in Blood by Automated count 6.6-10.1 [facility] Platelets Auto (Bld) [#/Vol] Ordered By: Brook Huddleston on 06-23-2024 Platelets (Bld) [#/Vol] Platelets [#/vol ume] in Blood by Automated count 150-450 [facility] Potassium [Moles/volume] in Serum or PlasmaOrdered By: Brook Huddleston on 06-23-2024 Potassium [Moles/Vol] Potassium [Moles/v olume] in Serum or Plasma 3.5-5.1 [facility] Protein Creat Ratio Ur Rando mon 06-23-2024 Creatinine, Urine (Random) 124.00 mg/dL Normal [facility] Comment on above: Result Comment: No r eference range established Performed By: #### P ROCRERAT ####[facility] [place] [address] [facility] Protein (U) [Mass/Vol] 362 mg/dL High 0-9 [facility] Comment on above: Performed By: #### P ROCRERAT ####[facility] [place] [address] [facility] Urine Protein/Creatinine Ratio Not performed Normal 0-200 [facility] Comment on above: Result Comment: PERF ORMED BY:[address] [place], [place] [phone] MEDICAL ANYA HARDING M.D. Performed By: #### P ROCRERAT ####[place] [id number] [place] [address] [facility] Protein [Mass/volume] in Ser um or PlasmaOrdered By: Brook Huddleston on 06-23-2024 Protein [Mass/Vol] Protein [Mass/volume ] in Serum or Plasma Low 6.4-8.9 [facility] Protein [Mass/volume] in Uri neOrdered By: Price Crain on 06-23-2024 Protein (U) [Mass/Vol] Protein [Mass/vol ume] in Urine High 0-9 [facility] RBC Auto (Bld) [#/Vol]Ordere d By: Brook Huddleston on 06-23-2024 RBC (Bld) [#/Vol] Erythrocytes [#/volu me] in Blood by Automated count Low 3.90-5.60 [facility] Serum or plasma albumin/glob ulin mass ratioOrdered By: Brook Huddleston on 06-23-2024 Albumin/Globulin [Mass ratio] Serum or plasma albumin/globulin mass ratio [facility] Serum or plasma anion gap de terminationOrdered By: Brook Huddleston on 06-23-2024 Anion gap [Moles/Vol] Serum or plasma an ion gap determination 6.0-15.0 [facility] Sodium [Moles/volume] in Ser um or PlasmaOrdered By: Brook Huddleston on 06-23-2024 Sodium [Moles/Vol] Sodium [Moles/volume ] in Serum or Plasma 136-145 [facility] Urate [Mass/volume] in Serum or PlasmaOrdered By: Price Crain on 06-23-2024 Urate [Mass/Vol] Urate [Mass/volume] in Serum or Plasma 4.4-7.6 [facility] Urea nitrogen [Mass/volume] in Serum or PlasmaOrdered By: Brook Huddleston on 06-23-2024 Urea nitrogen [Mass/Vol] Urea nitrogen [Mass/volume] in Serum or Plasma High 7-25 [facility] Uric Acidon 06-23-2024 Urate [Mass/Vol] 4.5 mg/dL Normal 4.4-7.6 [facility] Comment on above: Performed By: #### M G, URIC, [id number], PHOS, PTH ####[facility] [place] [address] [facility] Urine protein/creatinine rat ioOrdered By: Price Crain on 06-23-2024 Protein/Creatinine (U) [Ratio] Urine protein/creatinine ratio [facility] Vitamin D 25 Hydroxy Totalon 06-23-2024 Vitamin D 25 Hydroxy Total 64.1 ng/mL Normal 30-100 [facility] Comment on above: Result Comment: ALEJA MIN D STATUS 25(OH)VITAMIN D RANGE (ng/mL) Deficient <20 Insufficient 20 to <30 Sufficient 30 to 100 Reference: Dieudonne MF,Brendon NC, Estrella CARTER, et al. Evaluation,treatment, and prevention of vitamin D deficiency; an Endocrine Society clinical practice guideline. JCEM. 2010; 96(7):1911-30.PERFORMED BY:[facility] [place], [place] [phone] MEDICAL DIRECTORMEAGAN HARDING M.D. Performed By: #### M G, URIC, [id number], PHOS, PTH ####[facility] [place] [address] [facility] Vitamin D+Metabolites [Mass/ volume] in Serum or PlasmaOrdered By: Price Crain on 06-23-2024 Vitamin D+Metabolites [Mass/Vol] Vitamin D+Metabolites [Mass/volume] in Serum or Plasma 30-100 [facility] WBC Auto (Bld) [#/Vol]Ordere d By: Brook Huddleston on 06-23-2024 WBC (Bld) [#/Vol] Leukocytes [#/volume ] in Blood by Automated count 4.1-10.5 [facility] Ambulatory Visit Summaryon 1 Ambulatory Visit Summary Ambulatory Visit Summary PATSY CUNNINGHAM :1945 Visit Date:06/10/2024 Ambulatory Visit Instructions Your Diagnosis Prostate cancer Noncompliant bladder OAB (overactive bladder) Hydroureteronephrosis Ureteral stricture Incomplete bladder emptying Recurrent UTI Kidney stones BPH with urinary obstruction Family history of prostate cancer in father Your Care Team Attending Physician - Diego RICKS, Orquidea Taylor Primary Care Physician - HELEN HEATH MD This Is Your Medications List nitrofurantoin (Macrobid 100 mg Cap) oxybutynin (oxybutynin 10 mg ER Tab) Contact prescribing physician if questions or concerns aspirin (aspirin 81 mg Chew Tab) atorvastatin (atorvastatin 20 mg Tab) bifidobacterium-lactobacil huber (Probiotic + Colostrum) cholecalciferol (Vitamin D3 2000 intl units) cyanocobalamin (Vitamin B-12 100 mcg oral tablet) famotidine (famotidine 20 mg Tab) insulin glargine (Lantus insulin) insulin lispro (Humalog) multivitamin with iron (Gentle Iron oral capsule) multivitamin with minerals (One A Day Men's Complete oral tablet) Procedures Performed Cystoscopic insertion of ureteric stent (06/04/2024), Transperineal needle biopsy of prostate (06/01/2024), Cystoscopic insertion of ureteric stent (02/03/2024), Cystoscopic replacement of ureteric stent (06/10/2023), ESWL of kidney (06/10/2023), Cystostomy and insertion of suprapubic tube (03/05/2023), Cystoscopic insertion of ureteric stent (12/10/2022), TURP - Transurethral resection of prostate (08/27/2022), Transurethral insertion of prostatic urethral lift implant (05/05/2022), Cystoscopic removal of ureteric stent (08/20/2012), Cystoscopic ureteroneocystostomy with insertion 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 Discharge Vitals Heart Rate (Peripheral) 67 Blood Pressure 133/64 Height 171 cm Height 67 in Weight 94 kg Weight 206.8 lb BMI 32.15 What to do next Scheduled Follow-Up Appointments Thursday 12:30 PM EST With: CARLEY Damian APRN, Makayla X Where: [facility] [address] [place] [address]- You Need to Schedule the Following Appointments Follow Up with Diego RICKS, Orquidea Taylor, OUSMANE, URO When: Where: Medications What How Much When Instructions Unchanged nitrofurantoin (Macrobid 100 mg Cap) 1 Capsules By Mouth 2 times a day take 1 cap morning of cath change and 12hrs after Unchanged oxybutynin (oxybutynin 10 mg ER Tab) 1 Tablets By Mouth Every day Unchanged aspirin (aspirin 81 mg Chew Tab) Chewed Every day Contact prescribing physician if questions or concerns Unchanged atorvastatin (atorvastatin 20 mg Tab) 1 Tablets By Mouth Every day Contact prescribing physician if questions or concerns Unchanged bifidobacterium-lactobacil huber (Probiotic + Colostrum) By Mouth Every day Contact prescribing physician if questions or concerns Unchanged cholecalciferol (Vitamin D3 2000 intl units) By Mouth Every day Contact prescribing physician if questions or concerns Unchanged cyanocobalamin (Vitamin B-12 100 mcg oral tablet) By Mouth Every day Contact prescribing physician [...] prescribing physician if questions or concerns Unchanged multivitamin with iron (Gentle Iron oral capsule) 1 Capsules By Mouth Every day Contact prescribing physician if questions or concerns Unchanged multivitamin with minerals (One A Day Men's Complete oral tablet) By Mouth Every day Contact prescribing physician [...] (hypertension) Hydroureter Hydroureteronephrosis Incomplete bladder emptying Kidney stones Microhematuria Nocturia Noncompliant bladder OAB (overactive bladder) Prostate cancer Recurrent UTI Rheumatoid arthritis Ureteral stricture UTI (urinary tract infection) UTI symptoms Weak urine stream Patient Survey You may receive a survey via text or e-mail asking about your office visit. Please share your experience with us by completing your survey. We appreciate your feedback and thank you for choosing us for your care. Education Materials Prostate Cancer The prostate is (more content not included)... Normal [facility] Urology Office/Clinic Noteon 06-10-2024 Urology Office/Clinic Note Urology Office/Clinic Note Chief Complaint path review HPI Staff 79yr old male pt here to review path report. Pt has suprapubic catheter. Stent placed in left kidney on 06/04/24 Previous Dx: noncompliant bladder, OAB, recurrent uti, hydroureternephrosis, ureteral stricture, prostate cancer, incomplete bladder emptying, kidney stones, BPH with urinary obstruction Catheter Leaking: denies Hematuria: denies Abdominal pain: denies Flank pain: denies History of Present Illness Tests reviewed: UA, op note, path I have reviewed the previous health record [...] Exam Vitals & Measurements HR: 67(Peripheral) BP: 133/64 HT: 67 in HT: 171 cm WT: 94 kg WT: 206.8 lb BMI: 32.15 General Appearance: alert, no distress, well nourished, well developed male. Assessment/Plan 79 year old male with complex urologic history s/p urolift, TURP, incidental finding of fav intermediate risk prostate cancer on active surveillance, found to have right distal ureteral stricture, non-compliant small bladder with BL VUR, acute on chronic renal failure. He was referred to Dr. Jessica Feliciano for further evaluation regarding recommendations of SP tube, stent, definitive care which is more invasive (cystectomy). Hx of multiple myeloma s/p tx, currently in remission. Sees Dr. Huddleston - no contraindications to proceed with any treatments or interventions [1]. THERESA N/A, pt inactive. Follows with nephro, Dr. Crain. Pt here with his today. 1. Prostate cancer (C61: Malignant neoplasm of prostate) ACTIVE SURVEILLANCE. cT1b Favorable intermediate risk prostate cancer, grade group 2 (6-10% GS4, 9% tissue resected involved) initial PSA 1.5 (11/2021). [3] PSA: 04/11/20 - 2.62 10/29/20 - 2.84 12/05/21 - 1.49, PSAD 0.08 09/09/23 - 0.71 Prostate volume 17.5 g (pre-TURP). TURP 08/27/22 - Incidental finding of prostatic adenocarcinoma. Eucha 7 (3+4), GG2. Only 6-10% of Selene 4 present. 7 of 78 prostate chips involved. No adverse pathology. Decipher testing 08/27/22 - High genomic risk. Not ideal surgical candidate (prostatectomy) due to age, comorbidities. [1] [place] prostate [place] [facility] [place] 14 cc. Post intervention changes w/o definitive MRI evidence of prostate malignancy. Lesion seen involving the R ischial tuberosity measuring 1 cm. A bony metastatic lesion cannot be excluded (recent bone survey neg). Evaluation by [facility] also suggested continue active surveillance. S/p cysto, R RPG, stent exchange, SP tube exchange, TP prostate bx, TRUS 06/01/24 - G6 (3+3) x 1 core (PINEDA). HGPIN x 2 core (LPM, LPL). Reviewed pathology with pt which has actually improved from his original TURP path. Given low grade, low volume, pt's advanced age, and low PSA levels, can d/c monitoring PSA since it is unlikely that the pt's life expectancy would be affected from this dx and/or tx. -Cont . 2. 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 S/p cysto, R RGP, stent exchange, Botox 100u, SPT exchange 09/23/23. Mild BL hydro 01/20/24 when admitted for MDR UTI and RINA. Pt does not feel Botox helped with bladder spasms, pt cont taking Oxybutynin bid. Discussed SNM given BL hydro vs cystectomy, pros and cons. Explained requirements to be a candidate for SNM. Educational pamphlets provided. Pt declined cystectomy previously No hx of back surgery. Cannot do SNM implantation at same time as stent exchange. 3. OAB (overactive bladder) (N32.81: Overactive bladder) Baseline very severe lower urinary tract symptoms. No improvement with course of anti-inflammatories, anticholinergics, or tamsulosin Pt d/c Myrbetriq due to side effects (mouth sores, fatigue). Reports mouth sores went away after stopping Myrbetriq, while still taking Fluconazole. Has trialed Trospium 20 mg. [1] UDS 10/20/22 - Voided 42 mL with a maximum flow rate of 5 ml/sec and a maximum detrusor recording of 14 cmH2O. The average flow rate was 2 ml/sec, with a remaining value of 77 mL representing post void residual. Overall very poor detrusor activity, small capacity. [3] S/p cysto, R RGP, sten (more content not included)... Normal [facility] Comment on above: Result Comment: Elec tronically Signed By: Orquidea Cortez MD\.br\Date and Time Signed: 06/10/24 13:53 EDT\.br\Electronically Co-Signed By: Valentina Sharp\.br\Date and Time Co-Signed: 06/10/24 12:23 EDT Albumin [Mass/volume] in Ser um or Plasma by Bromocresol green (BCG) dye binding methoOrdered By: Domonique Rahman on 06-08-2024 Albumin BCG dye [Mass/Vol] 3.7 g/dL 3.5-5.7 [facility] Albumin BCG dye [Mass/Vol] Albumin [Mass/volume] in Serum or Plasma by Bromocresol green (BCG) dye binding metho 3.5-5.7 [facility] Calcium [Mass/volume] in Ser um or PlasmaOrdered By: Domonique Rahman on 06-08-2024 Calcium [Mass/Vol] 8.8 mg/dL Normal 8.6-10.3 [facility] Comment on above: Order Comment: Comme nt Results to Dr. Crain Performed By: #### R ENAL ####[address] Calcium [Mass/Vol] Calcium [Mass/volume ] in Serum or Plasma 8.6-10.3 [facility] Carbon dioxide, total [Moles /volume] in Serum or PlasmaOrdered By: Domonique Rahman on 06-08-2024 CO2 [Moles/Vol] 24.7 mmol/L Normal 21.0-31.0 [facility] Comment on above: Order Comment: Comme nt Results to Dr. Crain Performed By: #### R ENAL ####[place] [id number] [facility] CO2 [Moles/Vol] Carbon dioxide, tota l [Moles/volume] in Serum or Plasma 21.0-31.0 [facility] Chloride [Moles/volume] in S valeria or PlasmaOrdered By: Domonique Rahman on 06-08-2024 Chloride [Moles/Vol] 110 mmol/L High 98-107 [facility] Comment on above: Order Comment: Comme nt Results to Dr. Crain Performed By: #### R ENAL ####[place] [id number] [facility] Chloride [Moles/Vol] Chloride [Moles/vol ume] in Serum or Plasma High 98-107 [facility] Creatinine [Mass/volume] in Serum or PlasmaOrdered By: Domonique Rahman on 06-08-2024 Creatinine [Mass/Vol] 2.30 mg/dL High 0.70-1.30 [facility] Comment on above: Order Comment: Comme nt Results to Dr. Crain Performed By: #### R ENAL ####[place] [id number] [place] [id number] [facility] Creatinine [Mass/Vol] Creatinine [Mass/v olume] in Serum or Plasma High 0.70-1.30 [facility] Glucose [Mass/volume] in Ser um or PlasmaOrdered By: Domonique Rahman on 06-08-2024 Glucose [Mass/Vol] 121 mg/dL High 70-100 [facility] Comment on above: ADA recommended refe rence rangeRandom Glucose Reference Range is dependent on time and content of last meal. Glucose of more than 200 mg/dL in a nonstressed, ambulatory subject supports the diagnosis of Diabetes Mellitus. Order Comment: Comme nt Results to Dr. Crain Result Comment: Ignacio om Glucose Reference Range is dependent on time and content of last meal. Glucose of more than 200 mg/dL in a nonstressed, ambulatory subject supports the diagnosis of Diabetes Mellitus. ADA recommended reference range Performed By: #### R ENAL ####[place] [id number] [facility] Glucose [Mass/Vol] Glucose [Mass/volume ] in Serum or Plasma High 70-100 [facility] No Panel InformationOrdered By: Domonique Rahman on 06-08-2024 Estimated GFR (CKD-EPI) 28.179 mL/Min [facility] Creatinine Clearance (Chem N/A [facility] 28.179 mL/Min [facility] N/A [facility] Phosphate [Mass/volume] in S valeria or PlasmaOrdered By: Domoinque Rahman on 06-08-2024 Phosphate [Mass/Vol] 3.5 mg/dL Normal 2.5-4.5 [facility] Comment on above: Order Comment: Comme nt Results to Dr. Crain Performed By: #### R ENAL ####[place] [id number] [facility] Phosphate [Mass/Vol] Phosphate [Mass/vol ume] in Serum or Plasma 2.5-4.5 [facility] Potassium [Moles/volume] in Serum or PlasmaOrdered By: Domonique Rahman on 06-08-2024 Potassium [Moles/Vol] 4.7 mmol/L Normal 3.5-5.1 [facility] Comment on above: Order Comment: Comme nt Results to Dr. Crain Performed By: #### R ENAL ####[address] [address] [facility] Potassium [Moles/Vol] Potassium [Moles/v olume] in Serum or Plasma 3.5-5.1 [facility] Renal Function Panelon 06-08 Albumin [Mass/Vol] 3.7 g/dL Normal 3.5-5.7 [facility] Comment on above: Order Comment: Comme nt Results to Dr. Crain Result Comment: PERF ORMED BY:[address] [place] [phone] MEDICAL DIRECTORMEAGAN HARDING M.D. Performed By: #### R ENAL ####[address] [address] [facility] GFR/1.73 sq M.predicted MDRD (S/P/Bld) [Vol rate/Area] 28.179 mL/min/{1.73_m2} Normal [facility] Comment on above: Order Comment: Comme nt Results to Dr. Crain Performed By: #### R ENAL ####[address] [address] [facility] Serum or plasma anion gap de terminationOrdered By: Domonique Rahman on 06-08-2024 Anion gap [Moles/Vol] 10.0 mmol/L Normal 6.0-15.0 [facility] Comment on above: Order Comment: Comme nt Results to Dr. Crain Performed By: #### R ENAL ####[address] [address] [facility] Anion gap [Moles/Vol] Serum or plasma an ion gap determination 6.0-15.0 [facility] Sodium [Moles/volume] in Ser um or PlasmaOrdered By: Domonique Rahman on 06-08-2024 Sodium [Moles/Vol] 140 mmol/L Normal 136-145 [facility] Comment on above: Order Comment: Comme nt Results to Dr. Crain Performed By: #### R ENAL ####[address] [address] [facility] Sodium [Moles/Vol] Sodium [Moles/volume ] in Serum or Plasma 136-145 [facility] Urea nitrogen [Mass/volume] in Serum or PlasmaOrdered By: Domonique Rahman on 06-08-2024 Urea nitrogen [Mass/Vol] 36 mg/dL High 03-10 [facility] Comment on above: Order Comment: Comme nt Results to Dr. Crain Performed By: #### R ENAL ####[address] [address] [facility] Urea nitrogen [Mass/Vol] Urea nitrogen [Mass/volume] in Serum or Plasma High 03-10 [facility] Basic Metabolic Panelon 05-18 Creatinine Clr Calc Pharmacy 23.26 Normal [facility] Comment on above: Result Comment: PERF ORMED BY:[address] [place], [place] [phone] MEDICAL DIRECTORMEAGAN HARDING M.D. Performed By: #### B ISAK WATSON ####[address] [address] [facility] GFR/1.73 sq M.predicted MDRD (S/P/Bld) [Vol rate/Area] 20.903 mL/min/{1.73_m2} Normal [facility] Comment on above: Performed By: #### B GUERRERO WATSONNO ####[place] [address] [place] [address] [facility] Calcium [Mass/volume] in Ser um or PlasmaOrdered By: Mayda Matthews on 06-05-2024 Calcium [Mass/Vol] 8.5 mg/dL Low 8.6-10.3 [facility] Comment on above: Performed By: #### B ISAK WATSON ####[address] [place] [address] [facility] Calcium [Mass/Vol] Calcium [Mass/volume ] in Serum or Plasma Low 8.6-10.3 [facility] Capillary blood glucose reese urement by glucometer (mass/volume)Ordered By: Mayda Matthews on 06-05-2024 Glucose [Mass/Vol] 160 mg/dL Normal [facility] Comment on above: Random Glucose Refer ence Range is dependent on time and content of last meal. Glucose of more than 200 mg/dL in a nonstressed, ambulatory subject supports the diagnosis of Diabetes Mellitus. Result Comment: Ignacio om Glucose Reference Range is dependent on time and content of last meal. Glucose of more than 200 mg/dL in a nonstressed, ambulatory subject supports the diagnosis of Diabetes Mellitus.PERFORMED BY:[place] [address] [place], [place] [phone] MEDICAL DIRECTORMEAGAN HARDING M.D. Performed By: #### G ANH ####Point of Care testing, Carbon dioxide, total [Moles /volume] in Serum or PlasmaOrdered By: Mayda Matthews on 06-05-2024 CO2 [Moles/Vol] 23.3 mmol/L Normal 21.0-31.0 [facility] Comment on above: Performed By: #### B ISAK WATSON ####[address] [address] [facility] CO2 [Moles/Vol] Carbon dioxide, tota l [Moles/volume] in Serum or Plasma 21.0-31.0 [facility] Chloride [Moles/volume] in S valeria or PlasmaOrdered By: Mayda Matthews on 06-05-2024 Chloride [Moles/Vol] 109 mmol/L High 98-107 [facility] Comment on above: Performed By: #### B ISAK WATSON ####[address] [address] [facility] Chloride [Moles/Vol] Chloride [Moles/vol ume] in Serum or Plasma High 98-107 [facility] Creatinine [Mass/volume] in Serum or PlasmaOrdered By: Mayda Mattehws on 06-05-2024 Creatinine [Mass/Vol] 2.95 mg/dL High 0.70-1.30 [facility] Comment on above: Performed By: #### B WALTER, CBCNO ####[place] [address] [place] [id number] [facility] Creatinine [Mass/Vol] Creatinine [Mass/v olume] in Serum or Plasma High 0.70-1.30 [facility] Erythrocyte distribution wid th Auto (RBC) [Ratio]Ordered By: Mayda Matthews on 06-05-2024 Erythrocyte distribution width (RBC) [Ratio] Erythrocyte distribution width [Ratio] by Automated count High 12.0-14.8 [facility] Erythrocyte distribution wid th [Ratio] by Automated countOrdered By: Mayda Matthews on 06-05-2024 Erythrocyte distribution width (RBC) [Ratio] 16.5 % High 12.0-14.8 [facility] Comment on above: Performed By: #### B WALTER, CBCNO ####[place] [id number] [facility] Erythrocytes [#/volume] in B lood by Automated countOrdered By: Mayda Mathtews on 06-05-2024 RBC (Bld) [#/Vol] 2.68 10*6/uL Low 3.90-5.60 [facility] Comment on above: Performed By: #### B WALTER CBCNO ####[place] [id number] [place] [id number] [facility] Glucose Glucometer (BldC) [M ass/Vol]Ordered By: Mayda Matthews on 06-05-2024 Glucose [Mass/Vol] Capillary blood gluc ose measurement by glucometer (mass/volume) [facility] Glucose Poct Glucometerson 1 Commemt1 Glu2: Cleaned Meter Normal [facility] Comment on above: Result Comment: PERF ORMED BY:[address], [place] [phone] MEDICAL DIRECTORMEAGAN HARDING M.D. Performed By: #### G LULS ####Point of Care testing, Glucose [Mass/Vol] 117 mg/dL Normal [facility] Comment on above: Result Comment: Ignacio om Glucose Reference Range is dependent on time and content of last meal. Glucose of more than 200 mg/dL in a nonstressed, ambulatory subject supports the diagnosis of Diabetes Mellitus. Performed By: #### G LULS ####Point of Care testing, Commemt1 Glu2: Cleaned Meter Normal [facility] Comment on above: Result Comment: PERF ORMED BY:[address] [place], [place] [phone] MEDICAL DIRECTORMEAGAN HARDING M.D. Performed By: #### G LULS ####Point of Care testing, Glucose [Mass/Vol] 62 mg/dL Normal [facility] Comment on above: Result Comment: Ignacio om Glucose Reference Range is dependent on time and content of last meal. Glucose of more than 200 mg/dL in a nonstressed, ambulatory subject supports the diagnosis of Diabetes Mellitus. Performed By: #### G LULS ####Point of Care testing, Glucose [Mass/volume] in Ser um or PlasmaOrdered By: Mayda Matthews on 06-05-2024 Glucose [Mass/Vol] 65 mg/dL Low 70-100 [facility] Comment on above: ADA recommended refe rence rangeRandom Glucose Reference Range is dependent on time and content of last meal. Glucose of more than 200 mg/dL in a nonstressed, ambulatory subject supports the diagnosis of Diabetes Mellitus. Result Comment: Ignacio om Glucose Reference Range is dependent on time and content of last meal. Glucose of more than 200 mg/dL in a nonstressed, ambulatory subject supports the diagnosis of Diabetes Mellitus. ADA recommended reference range Performed By: #### B MP, CBCNO ####[facility] [id number] [place] [address] [facility] Glucose [Mass/Vol] Glucose [Mass/volume ] in Serum or Plasma Low 70-100 [facility] Hematocrit Auto (Bld) [Volum e fraction]Ordered By: Mayda Headleyomar on 06-05-2024 Hematocrit (Bld) [Volume fraction] Hematocrit [Volume Fraction] of Blood by Automated count Low 38.8-50.0 [facility] Hematocrit [Volume Fraction] of Blood by Automated countOrdered By: Obfrankidanew Headleyomar on 06-05-2024 Hematocrit (Bld) [Volume fraction] 27.9 % Low 38.8-50.0 [facility] Comment on above: Performed By: #### B WALTER, CBCNO ####[place] [id number] Hemoglobin [Mass/volume] in BloodOrdered By: Mayda Headleyomar on 06-05-2024 Hemoglobin (Bld) [Mass/Vol] 9.4 g/dL Low 13.0-17.0 [facility] Comment on above: Performed By: #### B WALTER, CBCNO ####[address] Hemoglobin (Bld) [Mass/Vol] Hemoglobin [Mass/volume] in Blood Low 13.0-17.0 [facility] Hemogram CBC Without Diffon 06-05-2024 Mean Corpuscular HGB Conc 33.7 g/dL Normal 32.5-35.6 [facility] Comment on above: Performed By: #### B MP, CBCNO ####[address] WBC (Bld) [#/Vol] 5.0 10*3/uL Normal 4.1-10.5 [facility] Comment on above: Performed By: #### B MP, CBCNO ####[address] Leukocytes [#/volume] correc lizbet for nucleated erythrocytes in Blood by Automated counOrdered By: Mayda Headleyomar on 06-05-2024 WBC corrected for nucl RBC Auto (Bld) [#/Vol] 5.0 10*3/uL 4.1-10.5 [facility] WBC corrected for nucl RBC Auto (Bld) [#/Vol] Leukocytes [#/volume] corrected for nucleated erythrocytes in Blood by Automated coun 4.1-10.5 [facility] MCH Auto (RBC) [Entitic mass ]Ordered By: Mayda Matthews on 06-05-2024 MCH (RBC) [Entitic mass] MCH [Entitic mass] by Automated count 27.5-35.2 [facility] MCH [Entitic mass] by Automa lizbet countOrdered By: Mayda Matthews on 06-05-2024 MCH (RBC) [Entitic mass] 35.2 pg Normal 27.5-35.2 [facility] Comment on above: Performed By: #### B WALTER, CBCNO ####[facility] [id number] MCHC Auto (RBC) [Mass/Vol]Or dered By: Mayda Matthews on 06-05-2024 MCHC (RBC) [Mass/Vol] 33.7 g/dL 32.5-35.6 [facility] MCHC (RBC) [Mass/Vol] MCHC [Mass/volume] by Automated count 32.5-35.6 [facility] MCV Auto (RBC) [Entitic vol] Ordered By: Mayda Matthews on 06-05-2024 MCV (RBC) [Entitic vol] MCV [Entitic vol ume] by Automated count High 83.5-101 [facility] MCV [Entitic volume] by Auto mated countOrdered By: Mayda Matthews on 06-05-2024 MCV (RBC) [Entitic vol] 104.3 fL High 83.5-101 [facility] Comment on above: Performed By: #### B MP, CBCNO ####[facility] [id number] No Panel InformationOrdered By: Mayda Matthews on 06-05-2024 Bedside Glucose Comment Glu2: cleaned meter [facility] Glu2: cleaned meter [facility] Estimated GFR (CKD-EPI) 20.903 mL/Min [facility] Creatinine Clearance (Chem 23.26 [facility] 20.903 mL/Min [facility] 23.26 [facility] Platelet mean volume Auto (B ld) [Entitic vol]Ordered By: Obaydah Daromar on 06-05-2024 Platelet mean volume (Bld) [Entitic vol] Platelet mean volume [Entitic volume] in Blood by Automated count 6.6-10.1 [facility] Platelet mean volume [Entiti c volume] in Blood by Automated countOrdered By: Obaydah Daromar on 06-05-2024 Platelet mean volume (Bld) [Entitic vol] 8.1 fL Normal 6.6-10.1 [facility] Comment on above: Result Comment: PERF ORMED BY:[address] [place], [place] [phone] MEDICAL DIRECTORMEAGAN HARDING M.D. Performed By: #### B WALTER CBCNO ####[address] [address] [facility] Platelets Auto (Bld) [#/Vol] Ordered By: Obfrankidah Kayodeomar on 06-05-2024 Platelets (Bld) [#/Vol] Platelets [#/vol ume] in Blood by Automated count Low 150-450 [facility] Platelets [#/volume] in Bloo d by Automated countOrdered By: Obfrankidah Daromar on 06-05-2024 Platelets (Bld) [#/Vol] 145 10*3/uL Low 150-450 [facility] Comment on above: Performed By: #### B WALTER, CBCNO ####[address] [address] [facility] Potassium [Moles/volume] in Serum or PlasmaOrdered By: Obfrankidah Kayodeomar on 06-05-2024 Potassium [Moles/Vol] 4.3 mmol/L Normal 3.5-5.1 [facility] Comment on above: Performed By: #### B WALTER, CBCNO ####[place] [id number] [facility] Potassium [Moles/Vol] Potassium [Moles/v olume] in Serum or Plasma 3.5-5.1 [facility] RBC Auto (Bld) [#/Vol]Ordere d By: Mayda Matthews on 06-05-2024 RBC (Bld) [#/Vol] Erythrocytes [#/volu me] in Blood by Automated count Low 3.90-5.60 [facility] Serum or plasma anion gap de terminationOrdered By: Mayda Matthews on 06-05-2024 Anion gap [Moles/Vol] 11.0 mmol/L Normal 6.0-15.0 [facility] Comment on above: Performed By: #### B WALTER CBCNO ####[place] [id number] Anion gap [Moles/Vol] Serum or plasma an ion gap determination 6.0-15.0 [facility] Sodium [Moles/volume] in Ser um or PlasmaOrdered By: Mayda Matthews on 06-05-2024 Sodium [Moles/Vol] 139 mmol/L Normal 136-145 [facility] Comment on above: Performed By: #### B GUERRERO WATSONNO ####[address] Sodium [Moles/Vol] Sodium [Moles/volume ] in Serum or Plasma 136-145 [facility] Urea nitrogen [Mass/volume] in Serum or PlasmaOrdered By: Mayda Matthews on 06-05-2024 Urea nitrogen [Mass/Vol] 43 mg/dL [facility] 03-10 [facility] Comment on above: Performed By: #### B WALTER, CBCNO ####[place] [id number] [place] [id number] [facility] Urea nitrogen [Mass/Vol] Urea nitrogen [Mass/volume] in Serum or Plasma High 03-10 [facility] Automated basophil %Ordered By: Tank Norman on 06-04-2024 Basophils/100 WBC (Bld) 0.1 % Normal . [facility] Comment on above: Performed By: #### C BC ####[place] [id number] [place] [id number] [facility] Automated basophil countOrde red By: Tank Ester on 06-04-2024 Basophils (Bld) [#/Vol] 0.0 10*3/uL Normal 0.0-0.2 [facility] Comment on above: Result Comment: PERF ORMED BY:[address] [place] [phone] MEDICAL DIRECTORMEAGAN HARDING M.D. Performed By: #### C BC ####[address] Automated blood monocyte cou ntOrdered By: Tank Norman on 06-04-2024 Monocytes (Bld) [#/Vol] 0.6 10*3/uL Normal 0.0-0.8 [facility] Comment on above: Performed By: #### C BC ####[address] Automated eosinophil %Ordere d By: Tank Norman on 06-04-2024 Eosinophils/100 WBC (Bld) 4.6 % Normal . [facility] Comment on above: Performed By: #### C BC ####[address] Automated eosinophil countOr dered By: Tank Norman on 06-04-2024 Eosinophils (Bld) [#/Vol] 0.3 10*3/uL Normal 0.0-0.45 [facility] Comment on above: Performed By: #### C BC ####[place] [id number] [facility] Automated monocyte %Ordered By: Tank Norman on 06-04-2024 Monocytes/100 WBC (Bld) 8.6 % Normal . [facility] Comment on above: Performed By: #### C BC ####[address] Automated neutrophil %Ordere d By: Tank Norman on 06-04-2024 Neutrophils/100 WBC (Bld) 78.9 % Normal . [facility] Comment on above: Performed By: #### C BC ####[address] [address] [facility] Basic Metabolic Panelon 05-17 Anion gap [Moles/Vol] 13.0 mmol/L Normal 6.0-15.0 [facility] Comment on above: Performed By: #### B MP ####[address] [address] [facility] Calcium [Mass/Vol] 8.8 mg/dL Normal 8.6-10.3 [facility] Comment on above: Performed By: #### B MP ####[address] [address] [facility] Chloride [Moles/Vol] 108 mmol/L High 98-107 [facility] Comment on above: Performed By: #### B MP ####[place] [id number] [facility] CO2 [Moles/Vol] 23.1 mmol/L Normal 21.0-31.0 [facility] Comment on above: Performed By: #### B MP ####[address] [address] [facility] Creatinine [Mass/Vol] 3.13 mg/dL High 0.70-1.30 [facility] Comment on above: Performed By: #### B MP ####[address] [address] [facility] Creatinine Clr Calc Pharmacy 21.98 Normal [facility] Comment on above: Result Comment: PERF ORMED BY:[address] [place], [place] [phone] MEDICAL ANYA HARDING M.D. Performed By: #### B MP ####[address] [address] [facility] GFR/1.73 sq M.predicted MDRD (S/P/Bld) [Vol rate/Area] 19.469 mL/min/{1.73_m2} Normal [facility] Comment on above: Performed By: #### B MP ####[address] Glucose [Mass/Vol] 120 mg/dL High 70-100 [facility] Comment on above: Result Comment: Ignacio Glucose Reference Range is dependent on time and content of last meal. Glucose of more than 200 mg/dL in a nonstressed, ambulatory subject supports the diagnosis of Diabetes Mellitus. ADA recommended reference range Performed By: #### B MP ####[address] Potassium [Moles/Vol] 5.1 mmol/L Normal 3.5-5.1 [facility] Comment on above: Performed By: #### B MP ####[address] Sodium [Moles/Vol] 139 mmol/L Normal 136-145 [facility] Comment on above: Performed By: #### B MP ####[address] Urea nitrogen [Mass/Vol] 41 mg/dL High 7-25 [facility] Comment on above: Performed By: #### B MP ####[address] Basophils Auto (Bld) [#/Vol] Ordered By: Tank Norman on 06-04-2024 Basophils (Bld) [#/Vol] Automated basophil count 0.0-0.2 [facility] Basophils/100 WBC Auto (Bld) Ordered By: Tank Norman on 06-04-2024 Basophils/100 WBC (Bld) Automated basophil % . [facility] Complete Blood Count Auto Di ffon 06-04-2024 Erythrocyte distribution width (RBC) [Ratio] 16.3 % High 12.0-14.8 [facility] Comment on above: Performed By: #### C BC ####[address] Hematocrit (Bld) [Volume fraction] 27.7 % Low 38.8-50.0 [facility] Comment on above: Performed By: #### C BC ####[address] Hemoglobin (Bld) [Mass/Vol] 9.5 g/dL Low 13.0-17.0 [facility] Comment on above: Performed By: #### C BC ####[address] MCH (RBC) [Entitic mass] 35.7 pg High 27.5-35.2 [facility] Comment on above: Performed By: #### C BC ####[address] MCV (RBC) [Entitic vol] 104.3 fL High 83.5-101 [facility] Comment on above: Performed By: #### C BC ####[address] Mean Corpuscular HGB Conc 34.2 g/dL Normal 32.5-35.6 [facility] Comment on above: Performed By: #### C BC ####[address] NRBC% 0.1 /100{WBC} Normal 0-0.5 [facility] Comment on above: Performed By: #### C BC ####[address] Platelet mean volume (Bld) [Entitic vol] 8.0 fL Normal 6.6-10.1 [facility] Comment on above: Performed By: #### C BC ####[address] Platelets (Bld) [#/Vol] 139 10*3/uL Low 150-450 [facility] Comment on above: Performed By: #### C BC ####[address] RBC (Bld) [#/Vol] 2.66 10*6/uL Low 3.90-5.60 [facility] Comment on above: Performed By: #### C BC ####[place] [address] [facility] Eosinophils Auto (Bld) [#/Vo l]Ordered By: Tank Norman on 06-04-2024 Eosinophils (Bld) [#/Vol] Automated eosinophil count 0.0-0.45 [facility] Eosinophils/100 WBC Auto (Bl d)Ordered By: Tank Norman on 06-04-2024 Eosinophils/100 WBC (Bld) Automated eosinophil % . [facility] [place] urethrocystogram retroon 06-04-2024 [place] urethrocystogram retro Normal [facility] Glucose Poct Glucometerson 1 Commemt1 Glu2: Cleaned Meter Normal [facility] Comment on above: Result Comment: PERF ORMED BY:[place] [address] [address] [place], [place] [phone] MEDICAL DIRECTORMEAGAN HARDING M.D. Performed By: #### G LULS ####Point of Care testing, Glucose [Mass/Vol] 208 mg/dL Normal [facility] Comment on above: Result Comment: Ignacio Glucose Reference Range is dependent on time and content of last meal. Glucose of more than 200 mg/dL in a nonstressed, ambulatory subject supports the diagnosis of Diabetes Mellitus. Performed By: #### G LULS ####Point of Care testing, Glucose [Mass/Vol] 118 mg/dL Normal [facility] Comment on above: Result Comment: Ignacio om Glucose Reference Range is dependent on time and content of last meal. Glucose of more than 200 mg/dL in a nonstressed, ambulatory subject supports the diagnosis of Diabetes Mellitus.PERFORMED BY:[address] [place] [address] [address] [place], [place] [phone] MEDICAL DIRECTORMEAGAN HARDING M.D. Performed By: #### G LULS ####Point of Care testing, Glucose [Mass/Vol] 179 mg/dL Normal [facility] Comment on above: Result Comment: Ignacio Glucose Reference Range is dependent on time and content of last meal. Glucose of more than 200 mg/dL in a nonstressed, ambulatory subject supports the diagnosis of Diabetes Mellitus.PERFORMED BY:[address] [address] [address] [place], [place] [phone] MEDICAL DIRECTORMEAGAN HARDING M.D. Performed By: #### G LUJOSE ####Point of Care testing, Glucose [Mass/Vol] 102 mg/dL Normal [facility] Comment on above: Result Comment: [facility] Glucose Reference Range is dependent on time and content of last meal. Glucose of more than 200 mg/dL in a nonstressed, ambulatory subject supports the diagnosis of Diabetes Mellitus.PERFORMED BY:[address] [place], [place] [phone] MEDICAL DIRECTORMEAGAN HARDING M.D. Performed By: #### G LUJOSE ####Point of Care testing, Leukocytes [#/volume] in Blo od by Automated countOrdered By: Tank Norman on 06-04-2024 WBC (Bld) [#/Vol] 6.5 10*3/uL Normal 4.1-10.5 [facility] Comment on above: Performed By: #### C BC ####[id number] [place] [address] [facility] Lymphocytes Auto (Bld) [#/Vo l]Ordered By: Tank Norman on 06-04-2024 Lymphocytes (Bld) [#/Vol] Lymphocytes [#/volume] in Blood by Automated count Low 1.00-4.8 [facility] Lymphocytes [#/volume] in Bl ood by Automated countOrdered By: Tank Norman on 06-04-2024 Lymphocytes (Bld) [#/Vol] 0.5 10*3/uL Low 1.00-4.8 [facility] Comment on above: Performed By: #### C BC ####[address] [address] [facility] Lymphocytes/100 WBC Auto (Bl d)Ordered By: Tank Norman on 06-04-2024 Lymphocytes/100 WBC (Bld) Lymphocytes/100 leukocytes in Blood by Automated count . [facility] Lymphocytes/100 leukocytes i n Blood by Automated countOrdered By: Tank Norman on 06-04-2024 Lymphocytes/100 WBC (Bld) 7.8 % Normal . [facility] Comment on above: Performed By: #### C BC ####[facility] [id number] [place] [address] [facility] Monocytes Auto (Bld) [#/Vol] Ordered By: Tank Norman on 06-04-2024 Monocytes (Bld) [#/Vol] Automated blood monocyte count 0.0-0.8 [facility] Monocytes/100 WBC Auto (Bld) Ordered By: Tank Norman on 06-04-2024 Monocytes/100 WBC (Bld) Automated monocyte % . [facility] Neutrophils Auto (Bld) [#/Vo l]Ordered By: Tank Norman on 06-04-2024 Neutrophils (Bld) [#/Vol] Neutrophils [#/volume] in Blood by Automated count 1.8-7.7 [facility] Neutrophils [#/volume] in Bl ood by Automated countOrdered By: Tank Norman on 06-04-2024 Neutrophils (Bld) [#/Vol] 5.1 10*3/uL Normal 1.8-7.7 [facility] Comment on above: Performed By: #### C BC ####[facility] [address] [place] [address] [facility] Neutrophils/100 WBC Auto (Bl d)Ordered By: Tank Norman on 06-04-2024 Neutrophils/100 WBC (Bld) Automated neutrophil % . [facility] Nucleated erythrocytes [Pres ence] in Blood by Automated countOrdered By: Tank Norman on 06-04-2024 Nucleated RBC Auto Ql (Bld) 0.1 /100{WBC} 0-0.5 [facility] Nucleated RBC Auto Ql (Bld) Nucleated erythrocytes [Presence] in Blood by Automated count 0-0.5 [facility] WBC Auto (Bld) [#/Vol]Ordere d By: Tank Norman on 06-04-2024 WBC (Bld) [#/Vol] Leukocytes [#/volume ] in Blood by Automated count 4.1-10.5 [facility] Activated partial thrombopla stin time (aPTT) in platelet poor plasma by coagulation aOrdered By: Mayda Matthews on 06-03-2024 aPTT Coag (PPP) [Time] 30.2 s 25.1-36.5 [facility] Comment on above: A hematocrit value g reater than 55% may lead to inaccurate results in coagulation testing. Patients having hematocrit values >55% require a special collection tube for coagulation studies. Please contact the laboratory at [phone] for redraw instructions. Alanine aminotransferase [En zymatic activity/volume] in Serum or PlasmaOrdered By: Mayda Matthews on 06-03-2024 ALT [Catalytic activity/Vol] 7 U/L Normal [facility] Comment on above: Performed By: #### M G, PTT, CBC, PT, CMP ####[facility] [id number] [place] [id number] [facility] ALT [Catalytic activity/Vol] Alanine aminotransferase [Enzymatic activity/volume] in Serum or Plasma [facility] Albumin [Mass/volume] in Ser um or Plasma by Bromocresol green (BCG) dye binding methoOrdered By: Mayda Matthews on 06-03-2024 Albumin BCG dye [Mass/Vol] 3.2 g/dL Low 3.5-5.7 [facility] Albumin BCG dye [Mass/Vol] Albumin [Mass/volume] in Serum or Plasma by Bromocresol green (BCG) dye binding metho Low 3.5-5.7 [facility] Alkaline phosphatase [Enzyma tic activity/volume] in Serum or PlasmaOrdered By: Mayda Matthews on 06-03-2024 ALP [Catalytic activity/Vol] 86 U/L Normal 34-104 [facility] Comment on above: Performed By: #### M G, PTT, CBC, PT, CMP ####[facility] [id number] [facility] ALP [Catalytic activity/Vol] Alkaline phosphatase [Enzymatic activity/volume] in Serum or Plasma 34-104 [facility] Aspartate aminotransferase [ Enzymatic activity/volume] in Serum or PlasmaOrdered By: Mayda Senr on 06-03-2024 AST [Catalytic activity/Vol] 16 U/L Normal 13-39 [facility] Comment on above: Performed By: #### M G, PTT, CBC, PT, CMP ####[place] [id number] [facility] AST [Catalytic activity/Vol] Aspartate aminotransferase [Enzymatic activity/volume] in Serum or Plasma 13-39 [facility] Basic Metabolic Panelon 10 Anion gap [Moles/Vol] 10.9 mmol/L Normal 6.0-15.0 [facility] Comment on above: Order Comment: Comme nt please call results to Dr. Rahman RE TIME FROM 1700 TO 2230 PER RN VANIA Performed By: #### B MP ####[address] Calcium [Mass/Vol] 9.1 mg/dL Normal 8.6-10.3 [facility] Comment on above: Order Comment: Comme nt please call results to Dr. Rahman RE TIME FROM 1700 TO 2230 PER RN VANIA Performed By: #### B MP ####[place] [id number] [facility] Chloride [Moles/Vol] 108 mmol/L High 98-107 [facility] Comment on above: Order Comment: Comme nt please call results to Dr. Rahman RE TIME FROM 1700 TO 2230 PER RN VANIA Performed By: #### B MP ####[id number] [facility] CO2 [Moles/Vol] 22.9 mmol/L Normal 21.0-31.0 [facility] Comment on above: Order Comment: Comme nt please call results to Dr. Rahman RE TIME FROM 1700 TO 2230 PER RN VANIA Performed By: #### B MP ####[id number] [facility] Creatinine [Mass/Vol] 3.07 mg/dL High 0.70-1.30 [facility] Comment on above: Order Comment: Comme nt please call results to Dr. Ramhan RE TIME FROM 1700 TO 2230 PER RN VANIA Performed By: #### B MP ####[address] [address] [facility] Creatinine Clr Calc Pharmacy 22.53 Normal [facility] Comment on above: Order Comment: Comme nt please call results to Dr. Rahman RE TIME FROM 1700 TO 2230 PER RN VANIA Result Comment: PERF ORMED BY:[address] [place], [place] [phone] MEDICAL ANYA HARDING M.D. Performed By: #### B MP ####[address] [address] [facility] GFR/1.73 sq M.predicted MDRD (S/P/Bld) [Vol rate/Area] 19.926 mL/min/{1.73_m2} Normal [facility] Comment on above: Order Comment: Comme nt please call results to Dr. Rahman RE TIME FROM 1700 TO 2230 PER RN VANIA Performed By: #### B MP ####[address] [address] [facility] Glucose [Mass/Vol] 150 mg/dL High 70-100 [facility] Comment on above: Order Comment: Comme nt please call results to Dr. Rahman RE TIME FROM 1700 TO 2230 PER RN VANIA Result Comment: Ignacio Glucose Reference Range is dependent on time and content of last meal. Glucose of more than 200 mg/dL in a nonstressed, ambulatory subject supports the diagnosis of Diabetes Mellitus. ADA recommended reference range Performed By: #### B MP ####[address] [address] [facility] Potassium [Moles/Vol] 4.8 mmol/L Normal 3.5-5.1 [facility] Comment on above: Order Comment: Comme nt please call results to Dr. Rahman RE TIME FROM 1700 TO 2230 PER RN VANIA Performed By: #### B MP ####[address] [address] [facility] Sodium [Moles/Vol] 137 mmol/L Normal 136-145 [facility] Comment on above: Order Comment: Comme nt please call results to Dr. Rahman RE TIME FROM 1700 TO 2230 PER RN VANIA Performed By: #### B MP ####[place] [id number] [facility] Urea nitrogen [Mass/Vol] 43 mg/dL High 7-25 [facility] Comment on above: Order Comment: Comme nt please call results to Dr. Rahman RE TIME FROM 1700 TO 2230 PER RN VANIA Performed By: #### B MP ####[place] [id number] [facility] Bilirubin.total [Mass/volume ] in Serum or PlasmaOrdered By: Mayda Matthews on 06-03-2024 Bilirubin [Mass/Vol] 0.3 mg/dL Normal 0.3-1.0 [facility] Comment on above: Performed By: #### M G, PTT, CBC, PT, CMP ####[place] [id number] [facility] Bilirubin [Mass/Vol] Bilirubin.total [Mass/volume] in Serum or Plasma 0.3-1.0 [facility] Complete Blood Count Auto Di ffon 06-03-2024 Basophils (Bld) [#/Vol] 0.0 10*3/uL Normal 0.0-0.2 [facility] Comment on above: Result Comment: PERF ORMED BY:[address] [place], [place] [phone] MEDICAL DIRECTORMEAGAN HARDING M.D. Performed By: #### M G, PTT, CBC, PT, CMP ####[address] [address] [facility] Basophils/100 WBC (Bld) 0.2 % Normal . [facility] Comment on above: Performed By: #### M G, PTT, CBC, PT, CMP ####[address] [address] [facility] Eosinophils (Bld) [#/Vol] 0.4 10*3/uL Normal 0.0-0.45 [facility] Comment on above: Performed By: #### M G, PTT, CBC, PT, CMP ####[address] Eosinophils/100 WBC (Bld) 7.7 % Normal . [facility] Comment on above: Performed By: #### M G, PTT, CBC, PT, CMP ####[address] Erythrocyte distribution width (RBC) [Ratio] 16.4 % High 12.0-14.8 [facility] Comment on above: Performed By: #### M G, PTT, CBC, PT, CMP ####[address] Hematocrit (Bld) [Volume fraction] 27.4 % Low 38.8-50.0 [facility] Comment on above: Performed By: #### M G, PTT, CBC, PT, CMP ####[address] Hemoglobin (Bld) [Mass/Vol] 9.2 g/dL Low 13.0-17.0 [facility] Comment on above: Performed By: #### M G, PTT, CBC, PT, CMP ####[address] Lymphocytes (Bld) [#/Vol] 0.9 10*3/uL Low 1.00-4.8 [facility] Comment on above: Performed By: #### M G, PTT, CBC, PT, CMP ####[address] Lymphocytes/100 WBC (Bld) 15.6 % Normal . [facility] Comment on above: Performed By: #### M G, PTT, CBC, PT, CMP ####[address] MCH (RBC) [Entitic mass] 35.5 pg High 27.5-35.2 [facility] Comment on above: Performed By: #### M G, PTT, CBC, PT, CMP ####[address] [place] [address] [place] MCV (RBC) [Entitic vol] 105.4 fL High 83.5-101 [facility] Comment on above: Performed By: #### M G, PTT, CBC, PT, CMP ####[address] Mean Corpuscular HGB Conc 33.7 g/dL Normal 32.5-35.6 [facility] Comment on above: Performed By: #### M G, PTT, CBC, PT, CMP ####[address] Monocytes (Bld) [#/Vol] 0.4 10*3/uL Normal 0.0-0.8 [facility] Comment on above: Performed By: #### M G, PTT, CBC, PT, CMP ####[address] Monocytes/100 WBC (Bld) 7.5 % Normal . [facility] Comment on above: Performed By: #### M G, PTT, CBC, PT, CMP ####[address] Neutrophils (Bld) [#/Vol] 3.8 10*3/uL Normal 1.8-7.7 [facility] Comment on above: Performed By: #### M G, PTT, CBC, PT, CMP ####[address] Neutrophils/100 WBC (Bld) 69.0 % Normal . [facility] Comment on above: Performed By: #### M G, PTT, CBC, PT, CMP ####[address] NRBC% 0.1 /100{WBC} Normal 0-0.5 [facility] Comment on above: Performed By: #### M G, PTT, CBC, PT, CMP ####[address] Platelet mean volume (Bld) [Entitic vol] 8.0 fL Normal 6.6-10.1 [facility] Comment on above: Performed By: #### M G, PTT, CBC, PT, CMP ####[address] Platelets (Bld) [#/Vol] 138 10*3/uL Low 150-450 [facility] Comment on above: Performed By: #### M G, PTT, CBC, PT, CMP ####[address] RBC (Bld) [#/Vol] 2.60 10*6/uL Low 3.90-5.60 [facility] Comment on above: Performed By: #### M G, PTT, CBC, PT, CMP ####[address] WBC (Bld) [#/Vol] 5.5 10*3/uL Normal 4.1-10.5 [facility] Comment on above: Performed By: #### M G, PTT, CBC, PT, CMP ####[address] Comprehensive Metabolic Pane mana 06-03-2024 Albumin [Mass/Vol] 3.2 g/dL Low 3.5-5.7 [facility] Comment on above: Performed By: #### M G, PTT, CBC, PT, CMP ####[address] Anion gap [Moles/Vol] 11.8 mmol/L Normal 6.0-15.0 [facility] Comment on above: Performed By: #### M G, PTT, CBC, PT, CMP ####[address] Calcium [Mass/Vol] 8.5 mg/dL Low 8.6-10.3 [facility] Comment on above: Performed By: #### M G, PTT, CBC, PT, CMP ####[address] Chloride [Moles/Vol] 110 mmol/L High 98-107 [facility] Comment on above: Performed By: #### M G, PTT, CBC, PT, CMP ####[address] CO2 [Moles/Vol] 21.0 mmol/L Normal 21.0-31.0 [facility] Comment on above: Performed By: #### M G, PTT, CBC, PT, CMP ####[address] Creatinine [Mass/Vol] 3.17 mg/dL High 0.70-1.30 [facility] Comment on above: Performed By: #### M G, PTT, CBC, PT, CMP ####[address] Creatinine Clr Calc Pharmacy 21.82 Normal [facility] Comment on above: Performed By: #### M G, PTT, CBC, PT, CMP ####[address] GFR/1.73 sq M.predicted MDRD (S/P/Bld) [Vol rate/Area] 19.175 mL/min/{1.73_m2} Normal [facility] Comment on above: Performed By: #### M G, PTT, CBC, PT, CMP ####[address] Glucose [Mass/Vol] 66 mg/dL Low 70-100 [facility] Comment on above: Result Comment: Ignacio Glucose Reference Range is dependent on time and content of last meal. Glucose of more than 200 mg/dL in a nonstressed, ambulatory subject supports the diagnosis of Diabetes Mellitus. ADA recommended reference range Performed By: #### M G, PTT, CBC, PT, CMP ####[address] Potassium [Moles/Vol] 5.8 mmol/L High 3.5-5.1 [facility] Comment on above: Performed By: #### M G, PTT, CBC, PT, CMP ####[address] [place] [address] [facility] Sodium [Moles/Vol] 137 mmol/L Normal 136-145 [facility] Comment on above: Performed By: #### M G, PTT, CBC, PT, CMP ####[facility] [place] [address] [facility] Urea nitrogen [Mass/Vol] 42 mg/dL High 7-25 [facility] Comment on above: Performed By: #### M G, PTT, CBC, PT, CMP ####[facility] [id number] [place] [address] [facility] Globulin Calc (S) [Mass/Vol] Ordered By: Mayda Matthews on 06-03-2024 Globulin (S) [Mass/Vol] Serum globulin m easurement by calculation (mass/volume) [facility] Glucose Poct Glucometerson 1 Glucose [Mass/Vol] 170 mg/dL Normal [facility] Comment on above: Result Comment: [facility] Glucose Reference Range is dependent on time and content of last meal. Glucose of more than 200 mg/dL in a nonstressed, ambulatory subject supports the diagnosis of Diabetes Mellitus.PERFORMED BY:[address] [place]HeenaChayM[place], [place] [phone] MEDICAL DIRECTORMEAGAN HARDING M.D. Performed By: #### G LULS ####Point of Care testing, Glucose [Mass/Vol] 230 mg/dL Normal [facility] Comment on above: Result Comment: [facility] Glucose Reference Range is dependent on time and content of last meal. Glucose of more than 200 mg/dL in a nonstressed, ambulatory subject supports the diagnosis of Diabetes Mellitus.PERFORMED BY:[address] [place], [place] [phone] MEDICAL DIRECTORMEAGAN HARDING M.D. Performed By: #### G LULS ####Point of Care testing, Commemt1 Glu2: Cleaned Meter Normal [facility] Comment on above: Result Comment: PERF ORMED BY:[address] [place], [place] [phone] MEDICAL ANYA HARDING M.D. Performed By: #### G LULS ####Point of Care testing, Glucose [Mass/Vol] 75 mg/dL Normal [facility] Comment on above: Result Comment: Ign[facility] om Glucose Reference Range is dependent on time and content of last meal. Glucose of more than 200 mg/dL in a nonstressed, ambulatory subject supports the diagnosis of Diabetes Mellitus. Performed By: #### G LULS ####Point of Care testing, Glucose [Mass/Vol] 71 mg/dL Normal [facility] Comment on above: Result Comment: Ignacio om Glucose Reference Range is dependent on time and content of last meal. Glucose of more than 200 mg/dL in a nonstressed, ambulatory subject supports the diagnosis of Diabetes Mellitus.PERFORMED BY:[address] LANDAVERDELINCOLN [place], [place] [phone] MEDICAL DIRECTORMEAGAN HARDING M.D. Performed By: #### G LULS ####Point of Care testing, Glucose [Mass/Vol] 81 mg/dL Normal [facility] Comment on above: Result Comment: Ignacio om Glucose Reference Range is dependent on time and content of last meal. Glucose of more than 200 mg/dL in a nonstressed, ambulatory subject supports the diagnosis of Diabetes Mellitus.PERFORMED BY:[address] [place], [place] [phone] MEDICAL ANYA HARDING M.D. Performed By: #### G LULS ####Point of Care testing, Glucose [Mass/Vol] 100 mg/dL Normal [facility] Comment on above: Result Comment: Ignacio om Glucose Reference Range is dependent on time and content of last meal. Glucose of more than 200 mg/dL in a nonstressed, ambulatory subject supports the diagnosis of Diabetes Mellitus.PERFORMED BY:[address] [place], [place] [phone] MEDICAL ANYA HARDING M.D. Performed By: #### G LULS ####Point of Care testing, Glucose [Mass/Vol] 77 mg/dL Normal [facility] Comment on above: Result Comment: [facility] Glucose Reference Range is dependent on time and content of last meal. Glucose of more than 200 mg/dL in a nonstressed, ambulatory subject supports the diagnosis of Diabetes Mellitus.PERFORMED BY:[address] [place], [place] [phone] MEDICAL DIRECTORMEAGAN HARDING M.D. Performed By: #### G ANH ####Point of Care testing, INR in Platelet poor plasma by Coagulation assayOrdered By: Mayda Matthews on 06-03-2024 INR Coag (PPP) [Relative time] 1.1 {INR} Normal [facility] Comment on above: INR Therapeutic Rang e A) Pre- and Peroperative OAT started two weeks before surgery. NOT HIP SURGERY: 1.5 - 2.5 HIP SURGERY: 2 - 3B) Primary and secondary prevention of venous THROMBOSIS: 2 - 3C) Active venous thrombosis, pulmonary embolismand prevention of recurrent venous thrombosis: 2 - 3D) Prevention of arterial thromboembolismincluding patients with mechanical heart valves: 3 - 4.5 Result Comment: INR Therapeutic Range A) Pre- and Peroperative OAT started two weeks before surgery. NOT HIP SURGERY: 1.5 - 2.5 HIP SURGERY: 2 - 3 B) Primary and secondary prevention of venous THROMBOSIS: 2 - 3 C) Active venous thrombosis, pulmonary embolism and prevention of recurrent venous thrombosis: 2 - 3 D) Prevention of arterial thromboembolism including patients with mechanical heart valves: 3 - 4.5 Performed By: #### M G, PTT, CBC, PT, CMP ####[facility] [place] [id number] [facility] INR Coag (PPP) [Relative time] INR in Platelet poor plasma by Coagulation assay [facility] Magnesium [Mass/volume] in S valeria or PlasmaOrdered By: Mayda Matthews on 06-03-2024 Magnesium [Mass/Vol] 2.0 mg/dL Normal 1.9-2.7 [facility] Comment on above: Result Comment: PERF ORMED BY:[address] [place], [place] [phone] MEDICAL DIRECTORJIANLAN SUN M.D. Performed By: #### M G, PTT, CBC, PT, CMP ####[address] [address] [facility] Magnesium [Mass/Vol] Magnesium [Mass/vol ume] in Serum or Plasma 1.9-2.7 [facility] Partial Thromboplastin Timeo n 06-03-2024 aPTT Coag (Bld) [Time] 30.2 s Normal 25.1-36.5 [facility] Comment on above: Result Comment: A he matocrit value greater than 55% may lead to inaccurate results in coagulation testing. Patients having hematocrit values >55% require a special collection tube for coagulation studies. Please contact the laboratory at [phone] for redraw instructions.PERFORMED BY:[address] [address] [address] [place], [place] [phone] MEDICAL DIRECTORMEAGAN HARDING M.D. Performed By: #### M G, PTT, CBC, PT, CMP ####[address] [address] [facility] Potassiumon 06-03-2024 Potassium [Moles/Vol] 5.9 mmol/L High 3.5-5.1 [facility] Comment on above: Result Comment: PERF ORMED BY:[address] [address] [address] [place], [place] [phone] MEDICAL DIRECTORMEAGAN HARDING M.D. Performed By: #### K ####[address] [address] [facility] Protein [Mass/volume] in Ser um or PlasmaOrdered By: Mayda Matthews on 06-03-2024 Protein [Mass/Vol] 5.8 g/dL Low 6.4-8.9 [facility] Comment on above: Performed By: #### M G, PTT, CBC, PT, CMP ####[address] [address] [facility] Protein [Mass/Vol] Protein [Mass/volume ] in Serum or Plasma Low 6.4-8.9 [facility] Prothrombin time (PT)Ordered By: Mayda Matthews on 06-03-2024 PT Coag (PPP) [Time] 13.0 s High 9.0-12.9 [facility] Comment on above: A hematocrit value g reater than 55% may lead to inaccurate results in coagulation testing. Patients having hematocrit values >55% require a special collection tube for coagulation studies. Please contact the laboratory at [phone] for redraw instructions. Result Comment: A he matocrit value greater than 55% may lead to inaccurate results in coagulation testing. Patients having hematocrit values >55% require a special collection tube for coagulation studies. Please contact the laboratory at [phone] for redraw instructions. Performed By: #### M G, PTT, CBC, PT, CMP ####[facility] [address] PT Coag (PPP) [Time] Prothrombin time (PT) High 9.0- 12.9 [facility] Serum globulin measurement b y calculation (mass/volume)Ordered By: Mayda Matthews on 06-03-2024 Globulin (S) [Mass/Vol] 2.6 g/dL Normal [facility] Comment on above: Performed By: #### M G, PTT, CBC, PT, CMP ####[facility] [id number] Serum or plasma albumin/glob ulin mass ratioOrdered By: Mayda Matthews on 06-03-2024 Albumin/Globulin [Mass ratio] 1.2 {ratio} Normal [facility] Comment on above: Performed By: #### M G, PTT, CBC, PT, CMP ####[facility] Ehi[address] Albumin/Globulin [Mass ratio] Serum or plasma albumin/globulin mass ratio [facility] aPTT in Platelet poor plasma by Coagulation assayOrdered By: Mayda Matthews on 06-03-2024 aPTT Coag (PPP) [Time] Activated partial thromboplastin time (aPTT) in platelet poor plasma by coagulation a 25.1-36.5 [facility] Alanine aminotransferase [En zymatic activity/volume] in Serum or PlasmaOrdered By: Brook Huddleston on 06-02-2024 ALT [Catalytic activity/Vol] 12 U/L Normal 7-52 [facility] Comment on above: Performed By: #### C MP, CBC ####[id number] [facility] Albumin [Mass/volume] in Ser um or Plasma by Bromocresol green (BCG) dye binding methoOrdered By: Brook Huddleston on 06-02-2024 Albumin BCG dye [Mass/Vol] 3.9 g/dL 3.5-5.7 [facility] Alkaline phosphatase [Enzyma tic activity/volume] in Serum or PlasmaOrdered By: Brook Huddleston on 06-02-2024 ALP [Catalytic activity/Vol] 97 U/L Normal 34-104 [facility] Comment on above: Performed By: #### C MP, CBC ####[address] [address] [facility] Appearance of UrineOrdered B y: Obmaine Headleymartir on 06-02-2024 Appearance (U) Urine appearance Abnormal Clear [facility] Aspartate aminotransferase [ Enzymatic activity/volume] in Serum or PlasmaOrdered By: Brook Huddleston on 06-02-2024 AST [Catalytic activity/Vol] 18 U/L Normal 13-39 [facility] Comment on above: Performed By: #### C MP, CBC ####[address] [address] [facility] Automated basophil %Ordered By: Brook Huddleston on 06-02-2024 Basophils/100 WBC (Bld) 0.3 % Normal . [facility] Comment on above: Performed By: #### C MP, CBC ####[address] [address] [facility] Automated basophil countOrde red By: Brook Huddleston on 06-02-2024 Basophils (Bld) [#/Vol] 0.0 10*3/uL Normal 0.0-0.2 [facility] Comment on above: Result Comment: PERF ORMED BY:[address] [place], [place] [phone] MEDICAL DIRECTORMEAGAN HARDING M.D. Performed By: #### C MP, CBC ####[address] Automated blood monocyte cou ntOrdered By: Brook Flaquito on 06-02-2024 Monocytes (Bld) [#/Vol] 0.5 10*3/uL Normal 0.0-0.8 [facility] Comment on above: Performed By: #### C MP, CBC ####[address] Automated eosinophil %Ordere d By: Brook Flaquito on 06-02-2024 Eosinophils/100 WBC (Bld) 5.4 % Normal . [facility] Comment on above: Performed By: #### C MP, CBC ####[address] Automated eosinophil countOr dered By: Brook Huddleston on 06-02-2024 Eosinophils (Bld) [#/Vol] 0.4 10*3/uL Normal 0.0-0.45 [facility] Comment on above: Performed By: #### C MP, CBC ####[address] Automated monocyte %Ordered By: Brook Flaquito on 06-02-2024 Monocytes/100 WBC (Bld) 6.5 % Normal . [facility] Comment on above: Performed By: #### C MP, CBC ####[address] Automated neutrophil %Ordere d By: Brook Flaquito on 06-02-2024 Neutrophils/100 WBC (Bld) 78.0 % Normal . [facility] Comment on above: Performed By: #### C MP, CBC ####[address] Bacteria [Presence] in Urine by AutomatedOrdered By: Mayda Matthews on 06-02-2024 Bacteria Auto Ql (U) 1+ [HPF] High None Seen [facility] Bacteria Auto Ql (U) Bacteria [Presence] in Urine by Automated High None Seen [facility] Basic Metabolic Panelon 05-17 Creatinine Clr Calc Pharmacy 21.23 Normal [facility] Comment on above: Result Comment: PERF ORMED BY:[address] [address] [address] [place], [place] [phone] MEDICAL DIRECTORMEAGAN HARDING M.D. Performed By: #### B MP ####[id number] [facility] GFR/1.73 sq M.predicted MDRD (S/P/Bld) [Vol rate/Area] 18.542 mL/min/{1.73_m2} Normal [facility] Comment on above: Performed By: #### B MP ####[address] Creatinine Clr Calc Pharmacy 19.50 Normal [facility] Comment on above: Result Comment: PERF ORMED BY:[address] [place], [place] [phone] MEDICAL DIRECTORMEAGAN HARDING M.D. Performed By: #### B MP ####[address] GFR/1.73 sq M.predicted MDRD (S/P/Bld) [Vol rate/Area] 17.203 mL/min/{1.73_m2} Normal [facility] Comment on above: Performed By: #### B MP ####[address] Performed By: #### C MP, CBC ####[address] Bilirubin Test strip Ql (U)O rdered By: Mayda Matthews on 06-02-2024 Bilirubin Ql (U) Negative Negative [facility] Bilirubin Ql (U) Bilirubin.total [Pre sence] in Urine by Test strip Negative [facility] Bilirubin.total [Mass/volume ] in Serum or PlasmaOrdered By: Brook Huddleston on 06-02-2024 Bilirubin [Mass/Vol] 0.4 mg/dL Normal 0.3-1.0 [facility] Comment on above: Performed By: #### C MP, CBC ####[facility] [id number] [place] [address] [facility] CBC W Auto Differential pane l (Bld)on 06-02-2024 Basophils (Bld) [#/Vol] 0 10*3/uL 0.0 - 0.2 10*3/uL [facility] Basophils/100 WBC Manual cnt (Syn fld) 0.3 % . [facility] Eosinophils (Bld) [#/Vol] 0.4 10*3/uL 0.0 - 0.45 10*3/uL [facility] Eosinophils/100 WBC Manual cnt (Syn fld) 5.4 % . [facility] Erythrocyte distribution width (RBC) [Ratio] 16.7 % High 12.0 - 14.8 % [facility] Hematocrit (Bld) [Volume fraction] 30.2 % Low 38.8 - 50.0 % [facility] Hemoglobin (Bld) [Mass/Vol] 10.3 g/dL Low 13.0 - 17.0 g/dL [facility] Lymphocytes (Bld) [#/Vol] 0.7 10*3/uL Low 1.00 - 4.8 10*3/uL [facility] Lymphocytes/100 WBC Manual cnt (Syn fld) 9.8 % . [facility] MCH (RBC) [Entitic mass] 36.2 pg High 27.5 - 35.2 pg [facility] MCHC (RBC) [Mass/Vol] 34.2 g/dL 32.5 - 35.6 g/dL [facility] MCV (RBC) [Entitic vol] 106 fL High 83.5 - 101 fL [facility] Monocytes (Bld) [#/Vol] 0.5 10*3/uL 0.0 - 0.8 10*3/uL [facility] Monocytes+Macrophages/1 00 WBC Manual cnt (Syn fld) 6.5 % . [facility] Neutrophils (Bld) [#/Vol] 5.7 10*3/uL 1.8 - 7.7 10*3/uL [facility] Neutrophils/100 WBC Manual cnt (Syn fld) 78 % . [facility] NRBC 0 /100{WBC} 0 - 0.5 /100{WBC} [facility] Platelet mean volume (Bld) [Entitic vol] 8.2 fL 6.6 - 10.1 fL [facility] Platelets (Bld) [#/Vol] 168 10*3/uL 150 - 450 10*3/uL [facility] RBC LM.HPF (Urine sed) [#/Area] 2.85 /[HPF] Low 3.90 - 5.60 [facility] WBC (Bld) [#/Vol] 7.3 10*3/uL 4.1 - 10.5 10*3/uL [facility] WBC LM.HPF (Urine sed) [#/Area] 7.3 10*3/uL 4.1 - 10.5 10*3/uL [facility] CT abdomen pelvis wo conon 1 CT abdomen pelvis wo con Normal [facility] Calcium [Mass/volume] in Ser um or PlasmaOrdered By: Mayda Matthews on 06-02-2024 Calcium [Mass/Vol] 8.8 mg/dL Normal 8.6-10.3 [facility] Comment on above: Performed By: #### B MP ####[place] [id number] Calcium [Mass/volume] in Ser um or PlasmaOrdered By: Dong Smith on 06-02-2024 Calcium [Mass/Vol] 9.3 mg/dL Normal 8.6-10.3 [facility] Comment on above: Performed By: #### B MP ####[place] [id number] [place] [id number] [facility] Calcium [Mass/volume] in Ser um or PlasmaOrdered By: Brook Huddleston on 06-02-2024 Calcium [Mass/Vol] 9.5 mg/dL Normal 8.6-10.3 [facility] Comment on above: Performed By: #### C MP, CBC ####[facility] [address] [place] [id number] [facility] Capillary blood glucose reese urement by glucometer (mass/volume)Ordered By: Mayda Matthews on 06-02-2024 Glucose [Mass/Vol] 134 mg/dL Normal [facility] Comment on above: Random Glucose Refer ence Range is dependent on time and content of last meal. Glucose of more than 200 mg/dL in a nonstressed, ambulatory subject supports the diagnosis of Diabetes Mellitus. Result Comment: Ignacio Glucose Reference Range is dependent on time and content of last meal. Glucose of more than 200 mg/dL in a nonstressed, ambulatory subject supports the diagnosis of Diabetes Mellitus.PERFORMED BY:[address] [address] [address] [place], [place] [phone] MEDICAL DIRECTORMEAGAN HARDING M.D. Performed By: #### G ANH ####Point of Care testing, Carbon dioxide, total [Moles /volume] in Serum or PlasmaOrdered By: Mayda Matthews on 06-02-2024 CO2 [Moles/Vol] 22.0 mmol/L Normal 21.0-31.0 [facility] Comment on above: Performed By: #### B MP ####[place] [id number] [facility] Carbon dioxide, total [Moles /volume] in Serum or PlasmaOrdered By: Dong Smith on 06-02-2024 CO2 [Moles/Vol] 20.3 mmol/L Low 21.0-31.0 [facility] Comment on above: Performed By: #### B MP ####[place] [id number] [facility] Carbon dioxide, total [Moles /volume] in Serum or PlasmaOrdered By: Brook Huddleston on 06-02-2024 CO2 [Moles/Vol] 22.0 mmol/L Normal 21.0-31.0 [facility] Comment on above: Performed By: #### C MP, CBC ####[place] [id number] [place] Casts [Presence] in Urine by AutomatedOrdered By: Mayda Matthews on 06-02-2024 Casts Auto Ql (U) 5-9 [LPF] High None Seen [facility] Casts Auto Ql (U) Casts [Presence] in Urine by Automated High None Seen [facility] Chloride [Moles/volume] in S valeria or PlasmaOrdered By: Mayda Matthews on 06-02-2024 Chloride [Moles/Vol] 108 mmol/L High 98-107 [facility] Comment on above: Performed By: #### B MP ####[address] Chloride [Moles/volume] in S valeria or PlasmaOrdered By: Dong Smith on 06-02-2024 Chloride [Moles/Vol] 107 mmol/L Normal 98-107 [facility] Comment on above: Performed By: #### B MP ####[place] [id number] Chloride [Moles/volume] in S valeria or PlasmaOrdered By: Brook Huddleston on 06-02-2024 Chloride [Moles/Vol] 107 mmol/L Normal 98-107 [facility] Comment on above: Performed By: #### C MP, CBC ####[address] Color Auto (U)Ordered By: Ivan Matthews on 06-02-2024 Color (U) Color of Urine by Auto Yellow [facility] Color of Urine by AutoOrdere d By: Mayda Headleyomar on 06-02-2024 Color (U) Light-yellow Normal Yellow [facility] Comment on above: Order Comment: Name Collection Type:: Suprapubic Collection Performed By: #### C UU, ADDONUAPLUS ####[address] Complete Blood Count Auto Di ffon 06-02-2024 Mean Corpuscular HGB Conc 34.2 g/dL Normal 32.5-35.6 [facility] Comment on above: Performed By: #### C MP, CBC ####[address] NRBC% 0.0 /100{WBC} Normal 0-0.5 [facility] Comment on above: Performed By: #### C MP, CBC ####[address] [place] [address] [facility] Comprehensive Metabolic Pane mana 06-02-2024 Albumin [Mass/Vol] 3.9 g/dL Normal 3.5-5.7 [facility] Comment on above: Performed By: #### C MP, CBC ####[place] [id number] [facility] CREATININE CLR CALC PHARMACY 19.39 Normal [facility] Comment on above: Result Comment: PERF ORMED BY:[address] [place], [place] [phone] MEDICAL DIRECTORMEAGAN HARDING M.D. Performed By: #### C MP, CBC ####[place] [id number] [facility] Comprehensive metabolic pane mana 06-02-2024 CO2 [Moles/Vol] 22 mmol/L 21.0 - 31.0 mmol/L [facility] Creatinine (U) [Mass/Vol] 3.47 mg/dL High 0.70 - 1.30 mg/dL [facility] Globulin (S) [Mass/Vol] 3 g/dL [facility] Creatinine [Mass/volume] in Serum or PlasmaOrdered By: Mayda Matthews on 06-02-2024 Creatinine [Mass/Vol] 3.26 mg/dL High 0.70-1.30 [facility] Comment on above: Performed By: #### B MP ####[place] [id number] [facility] Creatinine [Mass/volume] in Serum or PlasmaOrdered By: Dong Smith on 06-02-2024 Creatinine [Mass/Vol] 3.47 mg/dL High 0.70-1.30 [facility] Comment on above: Performed By: #### B MP ####[place] [id number] [facility] Creatinine [Mass/volume] in Serum or PlasmaOrdered By: Brook Huddleston on 06-02-2024 Creatinine [Mass/Vol] 3.47 mg/dL High 0.70-1.30 [facility] Comment on above: Performed By: #### C MP, CBC ####[place] [id number] [place] [address] [facility] Crystals [Presence] in Urine by AutomatedOrdered By: Mayda Matthews on 06-02-2024 Crystals Auto Ql (U) 1+ [HPF] [facility] Crystals Auto Ql (U) Crystals [Presence] in Urine by Automated [facility] Dipstick and Microscopicon 1 Bacteria,Urine 1+ High None Seen [facility] Comment on above: Order Comment: Name Collection Type:: Suprapubic Collection Performed By: #### C UU, ADDONUAPLUS ####[place] [address] [place] [address] [place] Bilirubin,Urine Negative Normal Negative [facility] Comment on above: Order Comment: Name Collection Type:: Suprapubic Collection Performed By: #### C UU, ADDONUAPLUS ####[address] [address] [facility] Budding Yeast,Urine 2+ High None Seen [facility] Comment on above: Order Comment: Name Collection Type:: Suprapubic Collection Result Comment: PERF ORMED BY:[address] [place], [place] [phone] MEDICAL ANYA HARDING M.D. Performed By: #### C UU, ADDONUAPLUS ####[address] [address] [facility] Glucose Ql (U) 100 mg/dL High Normal [facility] Comment on above: Order Comment: Name Collection Type:: Suprapubic Collection Performed By: #### C UU, ADDONUAPLUS ####[address] [address] [place] Hyaline Casts,Urine None Normal 0-8 [facility] Comment on above: Order Comment: Name Collection Type:: Suprapubic Collection Performed By: #### C UU, ADDONUAPLUS ####[address] [address] [place] Mucus,Urine Rare Normal [facility] Comment on above: Order Comment: Name Collection Type:: Suprapubic Collection Performed By: #### C UU, ADDONUAPLUS ####[address] Nitrite,Urine Negative Normal Negative [facility] Comment on above: Order Comment: Name Collection Type:: Suprapubic Collection Performed By: #### C UU, ADDONUAPLUS ####[address] Occult Blood,Urine 2+ High Negative [facility] Comment on above: Order Comment: Name Collection Type:: Suprapubic Collection Result Comment: PERF ORMED BY:[address] [place], [place] [phone] MEDICAL DIRECTORMEAGAN HARDING M.D. Performed By: #### C UU, ADDONUAPLUS ####[address] Othe Crystals,Urine 1+ Normal [facility] Comment on above: Order Comment: Name Collection Type:: Suprapubic Collection Performed By: #### C UU, ADDONUAPLUS ####[address] Other Casts,Urine 5-9 High None Seen [facility] Comment on above: Order Comment: Name Collection Type:: Suprapubic Collection Performed By: #### C UU, ADDONUAPLUS ####[address] RBC,Urine 50-100 High 0-4 [facility] Comment on above: Order Comment: Name Collection Type:: Suprapubic Collection Performed By: #### C UU, ADDONUAPLUS ####[address] Specificy [place],Urine 1.013 Normal 1.00 1-1.03 0 [facility] Comment on above: Order Comment: Name Collection Type:: Suprapubic Collection Performed By: #### C UU, ADDONUAPLUS ####[address] Urobilinogen,Urine Normal Normal Normal [facility] Comment on above: Order Comment: Name Collection Type:: Suprapubic Collection Performed By: #### C UU, ADDONUAPLUS ####[place] [id number] WBC CLUMP, Urine Many High None Seen [facility] Comment on above: Order Comment: Name Collection Type:: Suprapubic Collection Performed By: #### C UU, ADDONUAPLUS ####[place] [id number] WBC,Urine Innumerable High 0-4 [facility] Comment on above: Order Comment: Name Collection Type:: Suprapubic Collection Performed By: #### C UU, ADDONUAPLUS ####[address] ECG 12 lead ECGon 06-02-2024 ECG 12 lead ECG Normal [facility] Epithelial cells.squamous [# /area] in Urine sediment by Automated countOrdered By: Mayda Senr on 06-02-2024 Epithelial cells.squamous Auto (Urine sed) [#/Area] N/A [facility] Epithelial cells.squamous Auto (Urine sed) [#/Area] Epithelial cells.squamous [#/area] in Urine sediment by Automated count [facility] Erythrocyte distribution wid th [Ratio] by Automated countOrdered By: Brook Huddleston on 06-02-2024 Erythrocyte distribution width (RBC) [Ratio] 16.7 % High 12.0-14.8 [facility] Comment on above: Performed By: #### C MP, CBC ####[address] Erythrocytes [#/area] in Uri ne sediment by Automated countOrdered By: Obfrankidah Daromar on 06-02-2024 RBC Auto (Urine sed) [#/Area] 50-100 [HPF] High 0-4 [facility] RBC Auto (Urine sed) [#/Area] Erythrocytes [#/area] in Urine sediment by Automated count High 0-4 [facility] Erythrocytes [#/volume] in B lood by Automated countOrdered By: Brook Huddleston on 06-02-2024 RBC (Bld) [#/Vol] 2.85 10*6/uL Low 3.90-5.60 [facility] Comment on above: Performed By: #### C MP, CBC ####[facility] [address] [place] [address] [place] Glucose [Mass/volume] in Ser um or PlasmaOrdered By: Mayda Matthews on 06-02-2024 Glucose [Mass/Vol] 116 mg/dL High 70-100 [facility] Comment on above: ADA recommended refe rence rangeRandom Glucose Reference Range is dependent on time and content of last meal. Glucose of more than 200 mg/dL in a nonstressed, ambulatory subject supports the diagnosis of Diabetes Mellitus. Result Comment: Ignacio om Glucose Reference Range is dependent on time and content of last meal. Glucose of more than 200 mg/dL in a nonstressed, ambulatory subject supports the diagnosis of Diabetes Mellitus. ADA recommended reference range Performed By: #### B MP ####[facility] [place] [address] [place] Glucose [Mass/volume] in Ser um or PlasmaOrdered By: Dong Smith on 06-02-2024 Glucose [Mass/Vol] 114 mg/dL High 70-100 [facility] Comment on above: ADA recommended refe rence rangeRandom Glucose Reference Range is dependent on time and content of last meal. Glucose of more than 200 mg/dL in a nonstressed, ambulatory subject supports the diagnosis of Diabetes Mellitus. Result Comment: Ignacio om Glucose Reference Range is dependent on time and content of last meal. Glucose of more than 200 mg/dL in a nonstressed, ambulatory subject supports the diagnosis of Diabetes Mellitus. ADA recommended reference range Performed By: #### B MP ####[facility] [place] [address] [place] Glucose [Mass/volume] in Ser um or PlasmaOrdered By: Brook Huddleston on 06-02-2024 Glucose [Mass/Vol] 203 mg/dL High 70-100 [facility] Comment on above: ADA recommended refe rence rangeRandom Glucose Reference Range is dependent on time and content of last meal. Glucose of more than 200 mg/dL in a nonstressed, ambulatory subject supports the diagnosis of Diabetes Mellitus. Random Glucose Refer ence Range is dependent on time and content of last meal. Glucose of more than 200 mg/dL in a nonstressed, ambulatory subject supports the diagnosis of Diabetes Mellitus. ADA recommended reference range Result Comment: Ignacio om Glucose Reference Range is dependent on time and content of last meal. Glucose of more than 200 mg/dL in a nonstressed, ambulatory subject supports the diagnosis of Diabetes Mellitus. ADA recommended reference range Performed By: #### C MP, CBC ####[address] Glucose [Mass/volume] in Uri ne by Test stripOrdered By: Mayda Matthews on 06-02-2024 Glucose Test strip (U) [Mass/Vol] 100 mg/dL [facility] Normal [facility] Glucose Test strip (U) [Mass/Vol] Glucose [Mass/volume] in Urine by Test strip [facility] Normal [facility] Hematocrit [Volume Fraction] of Blood by Automated countOrdered By: Brook Huddleston on 06-02-2024 Hematocrit (Bld) [Volume fraction] 30.2 % Low 38.8-50.0 [facility] Comment on above: Performed By: #### C WALTER, CBC ####[address] Hemoglobin Test strip Ql (U) Ordered By: Mayda Matthews on 06-02-2024 Hemoglobin Ql (U) 2+ High Negative [facility] Hemoglobin Ql (U) Hemoglobin [Presence ] in Urine by Test strip High Negative [facility] Hemoglobin [Mass/volume] in BloodOrdered By: Brook Huddleston on 06-02-2024 Hemoglobin (Bld) [Mass/Vol] 10.3 g/dL Low 13.0-17.0 [facility] Comment on above: Performed By: #### C MP, CBC ####[address] Hyaline casts [#/area] in Ur ine sediment by Automated countOrdered By: Mayda Matthews on 06-02-2024 Hyaline casts Auto (Urine sed) [#/Area] None [LPF] 0-8 [facility] Hyaline casts Auto (Urine sed) [#/Area] Hyaline casts [#/area] in Urine sediment by Automated count 0-8 [facility] Ketones Test strip Ql (U)Ord ered By: Mayda Senr on 06-02-2024 Ketones Ql (U) Ketones [Presence] i n Urine by Test strip Negative [facility] Ketones [Presence] in Urine by Test stripOrdered By: Mayda Senr on 06-02-2024 Ketones Ql (U) Negative Normal Negative [facility] Comment on above: Order Comment: Name Collection Type:: Suprapubic Collection Performed By: #### C UU, ADDONUAPLUS ####[place] [id number] [address] Laboratory - Microbiology an d Antimicrobial susceptibilityOrdered By: Mayda Matthews on 06-02-2024 Bacteria identified Cx Nom (U) Jessica albicans Abnormal [facility] Leukocyte clumps [Presence] in Urine by AutomatedOrdered By: Mayda Matthews on 06-02-2024 Leukocyte clumps Auto Ql (U) Many [LPF] High None Seen [facility] Leukocyte clumps Auto Ql (U) Leukocyte clumps [Presence] in Urine by Automated High None Seen [facility] Leukocyte esterase [Presence ] in Urine by Test stripOrdered By: Mayda Matthews on 06-02-2024 Leukocyte esterase Test strip Ql (U) 4+ High Negative [facility] Comment on above: Order Comment: Name Collection Type:: Suprapubic Collection Performed By: #### C UU, ADDONUAPLUS ####[address] Leukocyte esterase Test strip Ql (U) Leukocyte esterase [Presence] in Urine by Test strip High Negative [facility] Leukocytes [#/area] in Urine sediment by Automated countOrdered By: Mayda Matthews on 06-02-2024 WBC Auto (Urine sed) [#/Area] Innumerable [HPF] High 0-4 [facility] WBC Auto (Urine sed) [#/Area] Leukocytes [#/area] in Urine sediment by Automated count High 0-4 [facility] Leukocytes [#/volume] correc lizbet for nucleated erythrocytes in Blood by Automated counOrdered By: Borok Huddleston on 06-02-2024 WBC corrected for nucl RBC Auto (Bld) [#/Vol] 7.3 10*3/uL 4.1-10.5 [facility] Leukocytes [#/volume] in Blo od by Automated countOrdered By: Brook Huddleston on 06-02-2024 WBC (Bld) [#/Vol] 7.3 10*3/uL Normal 4.1-10.5 [facility] Comment on above: Performed By: #### C MP, CBC ####[address] Lymphocytes [#/volume] in Bl ood by Automated countOrdered By: Brook Huddleston on 06-02-2024 Lymphocytes (Bld) [#/Vol] 0.7 10*3/uL Low 1.00-4.8 [facility] Comment on above: Performed By: #### C MP, CBC ####[address] Lymphocytes/100 leukocytes i n Blood by Automated countOrdered By: Brook Huddleston on 06-02-2024 Lymphocytes/100 WBC (Bld) 9.8 % Normal . [facility] Comment on above: Performed By: #### C MP, CBC ####[address] MCH [Entitic mass] by Automa lizbet countOrdered By: Brook Huddleston on 06-02-2024 MCH (RBC) [Entitic mass] 36.2 pg High 27.5-35.2 [facility] Comment on above: Performed By: #### C MP, CBC ####[address] MCHC Auto (RBC) [Mass/Vol]Or dered By: Brook Huddleston on 06-02-2024 MCHC (RBC) [Mass/Vol] 34.2 g/dL 32.5-35.6 [facility] MCV [Entitic volume] by Auto mated countOrdered By: Brook Huddleston on 06-02-2024 MCV (RBC) [Entitic vol] 106.0 fL High 83.5-101 F [facility] Comment on above: Performed By: #### C MP, CBC ####[facility] [id number] Mucus [Presence] in Urine by AutomatedOrdered By: Mayda Matthews on 06-02-2024 Mucus Auto Ql (U) Rare [LPF] [facility] Mucus Auto Ql (U) Mucus [Presence] in Urine by Automated [facility] Neutrophils [#/volume] in Bl ood by Automated countOrdered By: Brook Huddleston on 06-02-2024 Neutrophils (Bld) [#/Vol] 5.7 10*3/uL Normal 1.8-7.7 [facility] Comment on above: Performed By: #### C MP, CBC ####[facility] [id number] [address] Nitrite Test strip Ql (U)Ord ered By: Mayda Matthews on 06-02-2024 Nitrite Ql (U) Negative Negative [facility] Nitrite Ql (U) Nitrite [Presence] i n Urine by Test strip Negative [facility] No Panel InformationOrdered By: Mayda Matthews on 06-02-2024 Estimated GFR (CKD-EPI) 18.542 mL/Min [facility] Creatinine Clearance (Chem 21.23 [facility] No Panel InformationOrdered By: Dong Smith on 06-02-2024 Estimated GFR (CKD-EPI) 17.203 mL/Min [facility] Creatinine Clearance (Chem 19.50 [facility] No Panel Informationon 06-02 Interpretation and review of laboratory results Abnormal [facility] No Panel InformationOrdered By: Brook Huddleston on 06-02-2024 Estimated GFR (CKD-EPI) 17.203 mL/Min [facility] Creatinine Clearance (Chem 19.39 [facility] Nucleated erythrocytes [Pres ence] in Blood by Automated countOrdered By: Brook Huddleston on 06-02-2024 Nucleated RBC Auto Ql (Bld) 0.0 /100{WBC} 0-0.5 [facility] Platelet mean volume [Entiti c volume] in Blood by Automated countOrdered By: Brook Huddleston on 06-02-2024 Platelet mean volume (Bld) [Entitic vol] 8.2 fL Normal 6.6-10.1 [facility] Comment on above: Performed By: #### C MP, CBC ####[address] [address] [place] Platelets [#/volume] in Bloo d by Automated countOrdered By: Brook Huddleston on 06-02-2024 Platelets (Bld) [#/Vol] 168 10*3/uL Normal 150-450 [facility] Comment on above: Performed By: #### C MP, CBC ####[place] [id number] [place] Potassium [Moles/volume] in Serum or PlasmaOrdered By: Mayda Matthews on 06-02-2024 Potassium [Moles/Vol] 5.0 mmol/L Normal 3.5-5.1 [facility] Comment on above: Performed By: #### B MP ####[place] [id number] [place] Potassium [Moles/volume] in Serum or PlasmaOrdered By: Dong Smith on 06-02-2024 Potassium [Moles/Vol] 6.1 mmol/L Off scale high 3.5-5.1 [facility] Comment on above: Critical Result Call ed to and read back by: NICOLLE GOODSON at: 06/02/2024 16:34:28 by:[id number] Result Comment: Crit ical Result Called to and read back by: NICOLLE GOODSON at: 06/02/2024 16:34:28 by:[id number] Performed By: #### B MP ####[place] [id number] [place] [id number] [place] Potassium [Moles/volume] in Serum or PlasmaOrdered By: Brook uHddleston on 06-02-2024 Potassium [Moles/Vol] 6.1 mmol/L Off scale high 3.5-5.1 [facility] Comment on above: Critical Result Call ed to and read back by: BROOK PELLETIER at: 06/02/2024 14:03:14 by:JACKSON Critical Result Call ed to and read back by: BROOK PELLETIER at: 06/02/2024 14:03:14 by:JACKSON Result Comment: Crit ical Result Called to and read back by: BROOK PELLETIER at: 06/02/2024 14:03:14 by:JACKSON Performed By: #### C MP, CBC ####[address] Protein Test strip (U) [Mass /Vol]Ordered By: Shelfieomar on 06-02-2024 Protein (U) [Mass/Vol] Protein [Mass/vol ume] in Urine by Test strip High Negative [facility] Protein [Mass/volume] in Ser um or PlasmaOrdered By: Brook Huddleston on 06-02-2024 Protein [Mass/Vol] 6.9 g/dL Normal 6.4-8.9 [facility] Comment on above: Performed By: #### C MP, CBC ####[address] Protein [Mass/volume] in Uri ne by Test stripOrdered By: Shelfieomar on 06-02-2024 Protein (U) [Mass/Vol] 70 mg/dL High Negative [facility] Comment on above: Order Comment: Name Collection Type:: Suprapubic Collection Performed By: #### C UU, ADDONUAPLUS ####[address] Serum globulin measurement b y calculation (mass/volume)Ordered By: Brook Huddleston on 06-02-2024 Globulin (S) [Mass/Vol] 3.0 g/dL Normal [facility] Comment on above: Performed By: #### C MP, CBC ####[place] [id number] [facility] Serum or plasma albumin/glob ulin mass ratioOrdered By: Brook Huddleston on 06-02-2024 Albumin/Globulin [Mass ratio] 1.3 {ratio} Normal [facility] Comment on above: Performed By: #### C MP, CBC ####[address] Serum or plasma anion gap de terminationOrdered By: Obfrankidanew Matthews on 06-02-2024 Anion gap [Moles/Vol] 11.0 mmol/L Normal 6.0-15.0 [facility] Comment on above: Performed By: #### B MP ####[address] Serum or plasma anion gap de terminationOrdered By: Dong Smith on 06-02-2024 Anion gap [Moles/Vol] 11.8 mmol/L Normal 6.0-15.0 [facility] Comment on above: Performed By: #### B MP ####[address] Serum or plasma anion gap de terminationOrdered By: Brook Huddleston on 06-02-2024 Anion gap [Moles/Vol] 10.1 mmol/L Normal 6.0-15.0 [facility] Comment on above: Performed By: #### C MP, CBC ####[address] Sodium [Moles/volume] in Ser um or PlasmaOrdered By: Obfrankidanew Headleyomar on 06-02-2024 Sodium [Moles/Vol] 136 mmol/L Normal 136-145 [facility] Comment on above: Performed By: #### B MP ####[address] Sodium [Moles/volume] in Ser um or PlasmaOrdered By: Dong Smith on 06-02-2024 Sodium [Moles/Vol] 133 mmol/L Low 136-145 [facility] Comment on above: Performed By: #### B MP ####[place] [address] [place] [address] [facility] Sodium [Moles/volume] in Ser um or PlasmaOrdered By: Brook Huddleston on 06-02-2024 Sodium [Moles/Vol] 133 mmol/L Low 136-145 [facility] Comment on above: Performed By: #### C MP, CBC ####[address] [address] [place] Specific gravity Test strip (U) [Rel density]Ordered By: Obaydah Daromar on 06-02-2024 Specific gravity (U) [Rel density] 1.013 1.001-1.03 0 [facility] Specific gravity (U) [Rel density] Specific gravity of Urine by Test strip 1.001-1.03 0 [facility] Urea nitrogen [Mass/volume] in Serum or PlasmaOrdered By: Obaydah Daromar on 06-02-2024 Urea nitrogen [Mass/Vol] 44 mg/dL [address] Comment on above: Performed By: #### B MP ####[place] [id number] [place] Urea nitrogen [Mass/volume] in Serum or PlasmaOrdered By: Dong Smith on 06-02-2024 Urea nitrogen [Mass/Vol] 48 mg/dL [address] Comment on above: Performed By: #### B MP ####[address] [address] [place] Urea nitrogen [Mass/volume] in Serum or PlasmaOrdered By: Brook Huddleston on 06-02-2024 Urea nitrogen [Mass/Vol] 48 mg/dL [address] Comment on above: Performed By: #### C MP, CBC ####[place] [id number] [place] [id number] [facility] Urine Cultureon 06-02-2024 Bacteria identified Cx Nom (U) ORGANISM: Jessica albicans (O:CANALB) Waterfall Count 50,000 PERFORMED BY: [facility] [address] [place] [id number] PATHOLOGIST EARLY BREASTFEEDING CARE SPECIALIST MEAGAN HARDING M.D. Normal [facility] Comment on above: Performed By: #### C UU, ADDONUAPLUS ####[place] [id number] [address] Urine appearanceOrdered By: Mayda Matthews on 06-02-2024 Appearance (U) Cloudy Critically abnormal Clear [facility] Comment on above: Order Comment: Name Collection Type:: Suprapubic Collection Performed By: #### C UU, ADDONUAPLUS ####[place] [id number] [address] Urine cultureOrdered By: Torie Matthews on 06-02-2024 Urine culture Abnormal [facility] Urobilinogen Test strip (U) [Mass/Vol]Ordered By: Mayda Matthews on 06-02-2024 Urobilinogen (U) [Mass/Vol] Normal mg/dL Normal [facility] Urobilinogen (U) [Mass/Vol] Urobilinogen [Mass/volume] in Urine by Test strip Normal [facility] Yeast.budding [Presence] in Urine by Computer assisted methodOrdered By: Mayda Matthews on 06-02-2024 Yeast.budding Computer assisted Ql (U) 2+ [HPF] High None Seen [facility] Yeast.budding Computer assisted Ql (U) Yeast.budding [Presence] in Urine by Computer assisted method High None Seen [facility] pH Test strip (U)Ordered By: Mayda Matthews on 06-02-2024 pH (U) pH of Urine by Test strip 5.0-9.0 [facility] pH of Urine by Test stripOrd ered By: Mayda Matthews on 06-02-2024 pH (U) 6.0 [pH] Normal 5.0-9.0 [facility] Comment on above: Order Comment: Name Collection Type:: Suprapubic Collection Performed By: #### C UU, ADDONUAPLUS ####[place] [id number] [address] No Panel InformationOrdered By: Orquidea Cortez on 06-01-2024 Miscellaneous Pathology Test See comment [facility] Comment on above: See report. Scanned copy available in EMR. See comment [facility] Pathology Request for Lab Co rpon 06-01-2024 Pathology Request for Lab Wendy Normal [facility] Comment on above: Order Comment: PATHO LOGY GI SPECIMEN Result Comment: See report. Scanned copy available in EMR.PERFORMED BY:[address] [place], [place] [phone] MEDICAL DIRECTORMEAGAN HARDING M.D. Performed By: #### P ATH TO [facility] ####[facility] [id number] [place] [address] 24 hour urine albumin/total protein ratio by electrophoresisOrdered By: Brook Huddleston on 05-20-2024 Albumin Elph (24H U) [Mass fraction] Albumin/Protein.total in 24 hour Urine by Electrophoresis . [facility] 24 hour urine gamma globulin /total protein ratio by electrophoresisOrdered By: Brook Huddleston on 05-20-2024 Gamma globulin Elph (24H U) [Mass fraction] Gamma globulin/Protein.total in 24 hour Urine by Electrophoresis . [facility] 24 hour urine protein monocl onal/total protein by electrophoresisOrdered By: Brook Huddleston on 05-20-2024 Protein.monoclonal Elph (24H U) [Mass fraction] Protein.monoclonal/Protein .total in 24 hour Urine by Electrophoresis Not Observed [facility] Albumin [Mass/volume] in Ser um or PlasmaOrdered By: Brook Huddleston on 05-20-2024 Albumin [Mass/Vol] 3.6 g/dL Normal 2.9-4.4 [facility] Comment on above: Performed By: #### U PE RAND, IMM RADHA, KAPPA, SPE, JOSE C,URINE ####[facility] ,#### LDH ####[facility] [id number] [place] [address] Albumin/Protein.total in 24 hour Urine by ElectrophoresisOrdered By: Brook Huddleston on 05-20-2024 Albumin Elph (24H U) [Mass fraction] 42.9 % . [facility] CBC W Auto Differential pane l (Bld)on 05-20-2024 Basophils (Bld) [#/Vol] 0.0 10*3/uL 0.0 - 0.2 10*3/uL [facility] Basophils/100 WBC Manual cnt (Syn fld) 0.4 % . [facility] Eosinophils (Bld) [#/Vol] 0.4 10*3/uL 0.0 - 0.45 10*3/uL [facility] Eosinophils/100 WBC Manual cnt (Syn fld) 6.2 % . [facility] Erythrocyte distribution width (RBC) [Ratio] 16.6 % High 12.0 - 14.8 % [facility] Hematocrit (Bld) [Volume fraction] 30.6 % Low 38.8 - 50.0 % [facility] Hemoglobin (Bld) [Mass/Vol] 10.3 g/dL Low 13.0 - 17.0 g/dL [facility] Interpretation and review of laboratory results Abnormal [facility] Lymphocytes (Bld) [#/Vol] 1.1 10*3/uL 1.00 - 4.8 10*3/uL [facility] Lymphocytes/100 WBC Manual cnt (Syn fld) 18.0 % . [facility] MCH (RBC) [Entitic mass] 35.0 pg 27.5 - 35.2 pg [facility] MCHC (RBC) [Mass/Vol] 33.6 g/dL 32.5 - 35.6 g/dL [facility] MCV (RBC) [Entitic vol] 104.3 fL High 83.5 - 101 fL [facility] Monocytes (Bld) [#/Vol] 0.3 10*3/uL 0.0 - 0.8 10*3/uL [facility] Monocytes+Macrophages/1 00 WBC Manual cnt (Syn fld) 4.9 % . [facility] Neutrophils (Bld) [#/Vol] 4.3 10*3/uL 1.8 - 7.7 10*3/uL [facility] Neutrophils/100 WBC Manual cnt (Syn fld) 70.5 % . [facility] NRBC 0.1 /100{WBC} 0 - 0.5 /100{WBC} [facility] Platelet mean volume (Bld) [Entitic vol] 8.2 fL 6.6 - 10.1 fL [facility] Platelets (Bld) [#/Vol] 201 10*3/uL 150 - 450 10*3/uL [facility] RBC LM.HPF (Urine sed) [#/Area] 2.93 /[HPF] Low 3.90 - 5.60 [facility] WBC (Bld) [#/Vol] 6.0 10*3/uL 4.1 - 10.5 10*3/uL [facility] WBC LM.HPF (Urine sed) [#/Area] 6.0 10*3/uL 4.1 - 10.5 10*3/uL [facility] Complete Blood Count Auto Di ffon 05-20-2024 Basophils (Bld) [#/Vol] 0.0 10*3/uL Normal 0.0-0.2 [facility] Comment on above: Result Comment: PERF ORMED BY:[address], [place] [phone] MEDICAL DIRECTORMEAGAN HARDING M.D. Performed By: #### C MP, CBC ####[address] Basophils/100 WBC (Bld) 0.4 % Normal . [facility] Comment on above: Performed By: #### C MP, CBC ####[address] Eosinophils (Bld) [#/Vol] 0.4 10*3/uL Normal 0.0-0.45 [facility] Comment on above: Performed By: #### C MP, CBC ####[address] Eosinophils/100 WBC (Bld) 6.2 % Normal . [facility] Comment on above: Performed By: #### C MP, CBC ####[address] Erythrocyte distribution width (RBC) [Ratio] 16.6 % High 12.0-14.8 [facility] Comment on above: Performed By: #### C MP, CBC ####[address] Hematocrit (Bld) [Volume fraction] 30.6 % Low 38.8-50.0 [facility] Comment on above: Performed By: #### C MP, CBC ####[address] Hemoglobin (Bld) [Mass/Vol] 10.3 g/dL Low 13.0-17.0 [facility] Comment on above: Performed By: #### C MP, CBC ####[address] Lymphocytes (Bld) [#/Vol] 1.1 10*3/uL Normal 1.00-4.8 [facility] Comment on above: Performed By: #### C MP, CBC ####[address] Lymphocytes/100 WBC (Bld) 18.0 % Normal . [facility] Comment on above: Performed By: #### C MP, CBC ####[address] MCH (RBC) [Entitic mass] 35.0 pg Normal 27.5-35.2 [facility] Comment on above: Performed By: #### C MP, CBC ####[address] MCV (RBC) [Entitic vol] 104.3 fL High 83.5-101 [facility] Comment on above: Performed By: #### C MP, CBC ####[address] Mean Corpuscular HGB Conc 33.6 g/dL Normal 32.5-35.6 [facility] Comment on above: Performed By: #### C MP, CBC ####[address] Monocytes (Bld) [#/Vol] 0.3 10*3/uL Normal 0.0-0.8 [facility] Comment on above: Performed By: #### C MP, CBC ####[address] Monocytes/100 WBC (Bld) 4.9 % Normal . [facility] Comment on above: Performed By: #### C MP, CBC ####[address] Neutrophils (Bld) [#/Vol] 4.3 10*3/uL Normal 1.8-7.7 [facility] Comment on above: Performed By: #### C MP, CBC ####[address] Neutrophils/100 WBC (Bld) 70.5 % Normal . [facility] Comment on above: Performed By: #### C MP, CBC ####[address] NRBC% 0.1 /100{WBC} Normal 0-0.5 [facility] Comment on above: Performed By: #### C MP, CBC ####[address] Platelet mean volume (Bld) [Entitic vol] 8.2 fL Normal 6.6-10.1 [facility] Comment on above: Performed By: #### C MP, CBC ####[address] Platelets (Bld) [#/Vol] 201 10*3/uL Normal 150-450 [facility] Comment on above: Performed By: #### C MP, CBC ####[address] RBC (Bld) [#/Vol] 2.93 10*6/uL Low 3.90-5.60 [facility] Comment on above: Performed By: #### C MP, CBC ####[address] WBC (Bld) [#/Vol] 6.0 10*3/uL Normal 4.1-10.5 [facility] Comment on above: Performed By: #### C MP, CBC ####[address] Comprehensive Metabolic Pane mana 05-20-2024 Albumin [Mass/Vol] 3.7 g/dL Normal 3.5-5.7 [facility] Comment on above: Performed By: #### C MP, CBC ####[address] Albumin/Globulin [Mass ratio] 1.3 {ratio} Normal [facility] Comment on above: Performed By: #### C MP, CBC ####[address] ALP [Catalytic activity/Vol] 109 U/L High 34-104 [facility] Comment on above: Performed By: #### C MP, CBC ####[address] ALT [Catalytic activity/Vol] 14 U/L Normal 7-52 [facility] Comment on above: Performed By: #### C MP, CBC ####[address] Anion gap [Moles/Vol] 11.5 mmol/L Normal 6.0-15.0 [facility] Comment on above: Performed By: #### C MP, CBC ####[address] AST [Catalytic activity/Vol] 15 U/L Normal 13-39 [facility] Comment on above: Performed By: #### C MP, CBC ####[address] Bilirubin [Mass/Vol] 0.4 mg/dL Normal 0.3-1.0 [facility] Comment on above: Performed By: #### C MP, CBC ####[place] [id number] [facility] Calcium [Mass/Vol] 8.9 mg/dL Normal 8.6-10.3 [facility] Comment on above: Performed By: #### C MP, CBC ####[place] [id number] [facility] Chloride [Moles/Vol] 109 mmol/L High 98-107 [facility] Comment on above: Performed By: #### C MP, CBC ####[address] [address] [facility] CO2 [Moles/Vol] 24.0 mmol/L Normal 21.0-31.0 [facility] Comment on above: Performed By: #### C MP, CBC ####[place] [id number] [facility] Creatinine [Mass/Vol] 2.58 mg/dL High 0.70-1.30 [facility] Comment on above: Performed By: #### C MP, CBC ####[place] [id number] [facility] Creatinine Clr Calc Pharmacy 26.08 Normal [facility] Comment on above: Result Comment: PERF ORMED BY:[address] [place], [place] [phone] MEDICAL DIRECTORMEAGAN HARDING M.D. Performed By: #### C MP, CBC ####[place] [id number] [facility] GFR/1.73 sq M.predicted MDRD (S/P/Bld) [Vol rate/Area] 24.550 mL/min/{1.73_m2} Normal [facility] Comment on above: Performed By: #### C MP, CBC ####[place] [id number] [facility] Globulin (S) [Mass/Vol] 2.9 g/dL Normal T [facility] Comment on above: Performed By: #### C MP, CBC ####[place] [id number] [facility] Glucose [Mass/Vol] 108 mg/dL High 70-100 [facility] Comment on above: Result Comment: Ignacio Glucose Reference Range is dependent on time and content of last meal. Glucose of more than 200 mg/dL in a nonstressed, ambulatory subject supports the diagnosis of Diabetes Mellitus. ADA recommended reference range Performed By: #### C MP, CBC ####[place] [id number] [place] Potassium [Moles/Vol] 4.5 mmol/L Normal 3.5-5.1 [facility] Comment on above: Performed By: #### C MP, CBC ####[place] [id number] Protein [Mass/Vol] 6.6 g/dL Normal 6.4-8.9 [facility] Comment on above: Performed By: #### C MP, CBC ####[place] [address] Sodium [Moles/Vol] 140 mmol/L Normal 136-145 [facility] Comment on above: Performed By: #### C MP, CBC ####[place] [address] Urea nitrogen [Mass/Vol] 29 mg/dL High 7-25 [facility] Comment on above: Performed By: #### C MP, CBC ####[place] [id number] Comprehensive metabolic pane mana 05-20-2024 Albumin [Mass/Vol] 3.7 g/dL 3.5 - 5.7 g/dL [facility] Albumin/Globulin [Mass ratio] 1.3 {ratio} [facility] ALP [Catalytic activity/Vol] 109 U/L High 34 - 104 U/L [facility] ALT [Catalytic activity/Vol] 14 U/L 7 - 52 U/L [facility] Anion gap [Moles/Vol] 11.5 mmol/L 6.0 - 15.0 [facility] AST [Catalytic activity/Vol] 15 U/L 13 - 39 U/L [facility] Bilirubin [Mass/Vol] 0.4 mg/dL 0.3 - 1 .0 mg/dL [facility] Calcium [Mass/Vol] 8.9 mg/dL 8.6 - 10. 3 mg/dL [facility] Chloride [Moles/Vol] 109 mmol/L High 98 - 10 7 mmol/L [facility] CO2 [Moles/Vol] 24.0 mmol/L 21.0 - 31.0 mmol/L [facility] Creatinine (U) [Mass/Vol] 2.58 mg/dL High 0.70 - 1.30 mg/dL [facility] CREATININE CLR CALC PHARMACY 26.08 [facility] GFR/1.73 sq M.predicted MDRD (S/P/Bld) [Vol rate/Area] 24.550 mL/min/{1.73_m2} [facility] Globulin (S) [Mass/Vol] 2.9 g/dL N [facility] Glucose [Mass/Vol] 108 mg/dL High 70 - 100 mg/dL [facility] Comment on above: Random Glucose Refer ence Range is dependent on time and content of last meal. Glucose of more than 200 mg/dL in a nonstressed, ambulatory subject supports the diagnosis of Diabetes Mellitus. ADA recommended reference range Interpretation and review of laboratory results Abnormal [facility] Potassium [Moles/Vol] 4.5 mmol/L 3.5 - 5.1 mmol/L [facility] Protein [Mass/Vol] 6.6 g/dL 6.4 - 8.9 g/dL [facility] Sodium [Moles/Vol] 140 mmol/L 136 - 145 mmol/L [facility] Urea nitrogen [Mass/Vol] 29 mg/dL High 7 - 25 mg/dL [facility] Free K+L LT Chains, Qn, Son 05-20-2024 Free [place] Light Chains, S 48.4 mg/L High 3.3-19.4 [facility] Comment on above: Performed By: #### U PE RAND, IMM RADHA, KAPPA, SPE, JOSE C,URINE ####[facility] ,#### LDH ####[address] Free Lambda Light Chains, S 32.4 mg/L High 5.7-26.3 [facility] Comment on above: Performed By: #### U PE RAND, IMM RADHA, KAPPA, SPE, JOSE C,URINE ####[facility] ,#### LDH ####[address] [place]/Lambda Ratio, S 1.49 Normal 0.26-1.65 [facility] Comment on above: Result Comment: Perf ormed at: - [facility] [address] [place] [id number] Orthotic/Prosthetic Practitioner: Melchor Agrawal PhD, Phone: [phone] BY:[facility] [place], [place] [phone] MEDICAL DIRECTORMEAGAN HARDING M.D. Performed By: #### U PE RAND, IMM RADHA, KAPPA, SPE, JOSE C,URINE ####[facility] ,#### LDH ####[facility] [place] [address] Gamma globulin/Protein.total in 24 hour Urine by ElectrophoresisOrdered By: Brook Huddleston on 05-20-2024 Gamma globulin Elph (24H U) [Mass fraction] 21.1 % . [facility] IgA [Mass/volume] in Serum o r PlasmaOrdered By: Brook Huddleston on 05-20-2024 IgA [Mass/Vol] 184 mg/dL 61-437 [facility] IgG [Mass/volume] in Serum o r PlasmaOrdered By: Brook Huddleston on 05-20-2024 IgG [Mass/Vol] 1098 mg/dL 603-1613 [facility] IgM [Mass/volume] in Serum o r PlasmaOrdered By: Brook Huddleston on 05-20-2024 IgM [Mass/Vol] 64 mg/dL 15-143 [facility] Comment on above: Performed at: [employer] [address] [id number] Director: Melchor Agrawal PhD, Phone: [phone] Immunofixation for UrineOrde red By: Brook Huddleston on 05-20-2024 Interpretation Immunofixation (U) [Interp] Comment . [facility] Comment on above: No monoclonality det ected.Performed at: [employer] [address] [id number] Director: Melchor Agrawal PhD, Phone: [phone] Interpretation Immunofixation (U) [Interp] Immunofixation for Urine . [facility] Comment on above: No monoclonality det ected.Performed at: [employer] [address] [id number] Director: Melchor Agrawal PhD, Phone: [phone] Immunofixation, (JOSE C), Urine on 05-20-2024 Immunofixation, (JOSE C), Urine Comment Normal . [facility] Comment on above: Result Comment: No m onoclonality detected. Performed at: [employer] - [facility] [place] [id number] [place], [place] [id number] Orthotic/Prosthetic Practitioner: Melchor Agrawal PhD, Phone: [phone] Performed By: #### U PE RAND, IMM RADHA, KAPPA, SPE, JOSE C,URINE ####[facility] ,#### LDH ####[facility] Immunoglobulin light chains. kappa.free [Mass/volume] in SerumOrdered By: Brook Huddleston on 05-20-2024 Immunoglobulin light chains.kappa.free (S) [Mass/Vol] 48.4 mg/L High 3.3-19.4 [facility] Immunoglobulin light chains. kappa.free/Immunoglobulin light chains.lambda.free [MassOrdered By: Brook Huddleston on 05-20-2024 Immunoglobulin light chains.kappa.free/Immun oglobulin light chains.lambda.free (S) [Mass ratio] 1.49 0.26-1.65 [facility] Comment on above: Performed at: [employer] [facility] [address] [id number] Director: Melchor Agrawal PhD, Phone: [phone] Immunoglobulin light chains. lambda.free [Mass/volume] in Serum or PlasmaOrdered By: Brook Huddleston on 05-20-2024 Immunoglobulin light chains.lambda.free [Mass/Vol] 32.4 mg/L High 5.7-26.3 [facility] Immunoglobulins A/G/M, Qn, S yue 05-20-2024 Immunoglobulin A, Serum 184 mg/dL Normal 61-437 [facility] Comment on above: Performed By: #### U PE RAND, IMM RADHA, KAPPA, SPE, JOSE C,URINE ####[facility] ,#### LDH ####[address] Immunoglobulin G 1098 mg/dL Normal 603-1613 [facility] Comment on above: Performed By: #### U PE RAND, IMM RADHA, KAPPA, SPE, JOSE C,URINE ####[facility] ,#### LDH ####[address] Immunoglobulin M, Serum 64 mg/dL Normal 15-143 [facility] Comment on above: Result Comment: Perf ormed at: - [facility] [address] [id number] Orthotic/Prosthetic Practitioner: Melchor Agrawal PhD, Phone: [phone] Performed By: #### U PE RAND, IMM RADHA, KAPPA, SPE, JOSE C,URINE ####[facility] ,#### LDH ####[address] [facility] Lactate Dehydrogenaseon 05-20-2024 L[facility] Lactate Dehydrogenase 127 U/L Low 140-271 [facility] Comment on above: Result Comment: PERF ORMED BY:[address] [place], [place] [phone] MEDICAL DIRECTORMEAGAN HARDING M.D. Performed By: #### U PE RAND, IMM RADHA, KAPPA, SPE, JOSE C,URINE ####[facility] ,#### LDH ####[address] [facility] Lactate to pyruvate reac tion [Catalytic activity/Vol]on 05-20-2024 Interpretation and review of laboratory results Abnormal [facility] LACTATE DEHYDROGENASE 127 U/L Low 140 - 271 U/L [facility] Healthcare [facility] Lactate dehydrogenase [Enzym atic activity/volume] in Serum or Plasma by Lactate to pyOrdered By: Brook Huddleston on 05-20-2024 L[facility] Lactate to pyruvate reaction [Catalytic activity/Vol] 127 U/L Low 140-271 [facility]DH Lactate to pyruvate reaction [Catalytic activity/Vol] Lactate dehydrogenase [Enzymatic activity/volume] in Serum or Plasma by Lactate to py Low 140-271 [facility] No Panel InformationOrdered By: Brook Huddleston on 05-20-2024 Protein Electrophoresis M-Anselmo Not observed g/dL Not Observed [facility] Protein Electrophoresis Note Comment . [facility] Comment on above: Protein electrophore sis scan will follow via computer,mail, or revenue stamp cutter delivery.Performed at: [facility] [employer] [facility] CenterIvgcwq[address] [place] [id number] Director: Melchor Agrawal PhD, Phone: [phone] Urine Random Prot Electrophor Note Comment . [facility] Comment on above: Protein electrophore sis scan will follow via computer,mail, or revenue stamp cutter delivery.Performed at: [employer] [address] [place] [id number] Director: Melchor Agrawal PhD, Phone: [phone] Not observed g/dL Not Observed [facility] Comment . [facility] Protein Electro, Random Urin yovany 05-20-2024 Albumin, Urine 42.9 % Normal . [facility] Comment on above: Performed By: #### U PE RAND, IMM RADHA, KAPPA, SPE, JOSE C,URINE ####[facility] ,#### LDH ####[address] Cpujd-7-Wusoosdl, Urine 3.1 % Normal . [facility] Comment on above: Performed By: #### U PE RAND, IMM RADHA, KAPPA, SPE, JOSE C,URINE ####[facility] ,#### LDH ####[place] [address] [place] [id number] [place] Llaoa-3-Xkjumcie, Urine 12.2 % Normal . [facility] Comment on above: Performed By: #### U PE RAND, IMM RADHA, KAPPA, SPE, JOSE C,URINE ####[facility] ,#### LDH ####[place] [id number] [place] Beta Globulin, Urine 20.7 % Normal . [facility] Comment on above: Performed By: #### U PE RAND, IMM RADHA, KAPPA, SPE, JOSE C,URINE ####[facility] ,#### LDH ####[address] Gamma Globulin, Urine 21.1 % Normal . [facility] Comment on above: Performed By: #### U PE RAND, IMM RADHA, KAPPA, SPE, JOSE C,URINE ####[facility] ,#### LDH ####[address] M-Anselmo % Not Observed Normal Not Observed [facility] Comment on above: Performed By: #### U PE RAND, IMM RADHA, KAPPA, SPE, JOSE C,URINE ####[facility] ,#### LDH ####[address] Please Note: Comment Normal . [facility] Comment on above: Result Comment: Prot ein electrophoresis scan will follow via computer, mail, or revenue stamp cutter delivery. Performed at: [facility] [address] [id number] Orthotic/Prosthetic Practitioner: Melchor Agrawal PhD, Phone: [phone] BY:[address] [phone] MEDICAL DIRECTORMEAGAN HARDING M.D. Performed By: #### U PE RAND, IMM RADHA, KAPPA, SPE, JOSE C,URINE ####[facility] ,#### LDH ####[address] Protein Electrophoresis, Ser umon 05-20-2024 Wlxwt-8-Zqsrjrst 0.3 g/dL Normal 0.0-0.4 [facility] Comment on above: Performed By: #### U PE RAND, IMM RADHA, KAPPA, SPE, JOSE C,URINE ####[facility] ,#### LDH ####[address] Uahug-7-Efapltyg 0.8 g/dL Normal 0.4-1.0 [facility] Comment on above: Performed By: #### U PE RAND, IMM RADHA, KAPPA, SPE, JOSE C,URINE ####[facility] ,#### LDH ####[address] Beta Globulin 0.8 g/dL Normal 0.7-1.3 [facility] Comment on above: Performed By: #### U PE RAND, IMM RADHA, KAPPA, SPE, JOSE C,URINE ####[facility] ,#### LDH ####[address] Gamma Globulin 1.0 g/dL Normal 0.4-1.8 [facility] Comment on above: Performed By: #### U PE RAND, IMM RADHA, KAPPA, SPE, JOSE C,URINE ####[facility] ,#### LDH ####[address] M-Anselmo Not Observed Normal Not Observed [facility] Comment on above: Performed By: #### U PE RAND, IMM RADHA, KAPPA, SPE, JOSE C,URINE ####[facility] ,#### LDH ####[address] SPE-Note Comment Normal . [facility] Comment on above: Result Comment: Prot ein electrophoresis scan will follow via computer, mail, or revenue stamp cutter delivery. Performed at: - [address], [place], [place] [id number] Orthotic/Prosthetic Practitioner: Melchor Agrawal PhD, Phone: [phone] Performed By: #### U PE RAND, IMM RADHA, KAPPA, SPE, JOSE C,URINE ####[facility] ,#### LDH ####[address] [address] [place] Protein [Mass/volume] in Ser um or PlasmaOrdered By: Brook Huddleston on 05-20-2024 Protein [Mass/Vol] 6.5 g/dL Normal 6.0-8.5 [facility] Comment on above: Performed By: #### U PE RAND, IMM RADHA, KAPPA, SPE, JOSE C,URINE ####[facility] ,#### LDH ####[address] Protein [Mass/volume] in Uri neOrdered By: Brook Huddleston on 05-20-2024 Protein (U) [Mass/Vol] 256.8 mg/dL Normal Not Estab. F [facility] Comment on above: Results confirmed on dilution. Result Comment: Resu lts confirmed on dilution. Performed By: #### U PE RAND, IMM RADHA, KAPPA, SPE, JOSE C,URINE ####[facility] ,#### LDH ####[address] Protein.monoclonal/Protein.t otal in 24 hour Urine by ElectrophoresisOrdered By: Brook Huddleston on 05-20-2024 Protein.monoclonal Elph (24H U) [Mass fraction] Not observed % Not Observed [facility] Serum free kappa light chain measurementOrdered By: Brook Huddleston on 05-20-2024 Immunoglobulin light chains.kappa.free (S) [Mass/Vol] Immunoglobulin light chains.kappa.free [Mass/volume] in Serum High 3.3-19.4 [facility] Serum globulin measurement ( mass/volume)Ordered By: Brook Huddleston on 05-20-2024 Globulin (S) [Mass/Vol] 2.9 g/dL Normal 2.2-3.[address] [facility] Comment on above: Performed By: #### U PE RAND, IMM RADHA, KAPPA, SPE, JOSE C,URINE ####[facility] ,#### LDH ####[address] Globulin (S) [Mass/Vol] Serum globulin m easurement (mass/volume) 2.2-3.9 [facility] Serum immunoglobulin free ka ppa light chains/immunoglobulin free lambda light chainsOrdered By: Brook Huddleston on 05-20-2024 Immunoglobulin light chains.kappa.free/Immun oglobulin light chains.lambda.free (S) [Mass ratio] Immunoglobulin light chains.kappa.free/Immunogl obulin light chains.lambda.free [Mass 0.26-1.65 [facility] Comment on above: Performed at: [employer] [facility] [employer] [address] [id number] Director: Melchor Agrawal PhD, Phone: [phone] Serum or plasma IgA measurem ent (mass/volume)Ordered By: Brook Huddleston on 05-20-2024 IgA [Mass/Vol] IgA [Mass/volume] in Serum or Plasma 61-856 [facility] Serum or plasma IgG measurem ent (mass/volume)Ordered By: Brook Huddleston on 05-20-2024 IgG [Mass/Vol] IgG [Mass/volume] in Serum or Plasma 603-1613 [facility] Serum or plasma IgM measurem ent (mass/volume)Ordered By: Brook Huddleston on 05-20-2024 IgM [Mass/Vol] IgM [Mass/volume] in Serum or Plasma 15-143 [facility] Comment on above: Performed at: [employer] [address] [id number] Director: Melchor Agrawal PhD, Phone: [phone] Serum or plasma albumin reese urement (mass/volume)Ordered By: Brook Huddleston on 05-20-2024 Albumin [Mass/Vol] Albumin [Mass/volume ] in Serum or Plasma 2.9-4.4 [facility] Serum or plasma albumin/glob ulin mass ratioOrdered By: Brook Huddleston on 05-20-2024 Albumin/Globulin [Mass ratio] 1.2 {ratio} Normal 0.7-1.7 [facility] Comment on above: Performed By: #### U PE RAND, IMM RADHA, KAPPA, SPE, JOSE C,URINE ####[facility] ,#### LDH ####[facility] [address] [place] [address] [facility] Albumin/Globulin [Mass ratio] Serum or plasma albumin/globulin mass ratio 0.7-1.7 [facility] Serum or plasma alpha 1 glob ulin measurement by electrophoresis (mass/volume)Ordered By: Brook Huddleston on 05-20-2024 Alpha 1 globulin Elph [Mass/Vol] 0.3 g/dL 0.0-0.4 [facility] Alpha 1 globulin Elph [Mass/Vol] Serum or plasma alpha 1 globulin measurement by electrophoresis (mass/volume) 0.0-0.4 [facility] Serum or plasma alpha 2 glob ulin measurement by electrophoresis (mass/volume)Ordered By: Brook Huddleston on 05-20-2024 Alpha 2 globulin Elph [Mass/Vol] 0.8 g/dL 0.4-1.0 [facility] Alpha 2 globulin Elph [Mass/Vol] Serum or plasma alpha 2 globulin measurement by electrophoresis (mass/volume) 0.4-1.0 [facility] Serum or plasma beta globuli n measurement by electrophoresis (mass/volume)Ordered By: Brook Huddleston on 05-20-2024 Beta globulin Elph [Mass/Vol] 0.8 g/dL 0.7-1.3 [facility] Beta globulin Elph [Mass/Vol] Serum or plasma beta globulin measurement by electrophoresis (mass/volume) 0.7-1.3 [facility] Serum or plasma gamma globul in measurement by electrophoresis (mass/volume)Ordered By: Brook Huddleston on 05-20-2024 Gamma globulin Elph [Mass/Vol] 1.0 g/dL 0.4-1.8 [facility] Gamma globulin Elph [Mass/Vol] Serum or plasma gamma globulin measurement by electrophoresis (mass/volume) 0.4-1.8 [facility] Serum or plasma immunoglobul in free lambda light chains measurement (mass/volume)Ordered By: Brook Huddleston on 05-20-2024 Immunoglobulin light chains.lambda.free [Mass/Vol] Immunoglobulin light chains.lambda.free [Mass/volume] in Serum or Plasma High 5.7-26.3 [facility] Serum total protein measurem entOrdered By: Brook Huddleston on 10-04-2024 Protein [Mass/Vol] Protein [Mass/volume ] in Serum or Plasma 6.0-8.5 [facility] Urine alpha 1 globulin/total protein by electrophoresisOrdered By: Brook Huddleston on 05-20-2024 Alpha 1 globulin Elph (U) [Mass fraction] 3.1 % . [facility] Alpha 1 globulin Elph (U) [Mass fraction] Urine alpha 1 globulin/total protein by electrophoresis . [facility] Urine alpha 2 globulin/total protein ratio by electrophoresisOrdered By: Brook Huddleston on 05-20-2024 Alpha 2 globulin Elph (U) [Mass fraction] 12.2 % . [facility] Alpha 2 globulin Elph (U) [Mass fraction] Urine alpha 2 globulin/total protein ratio by electrophoresis . [facility] Urine beta globulin measurem ent by electrophoresis (mass/volume)Ordered By: Brook Huddleston on 05-20-2024 Beta globulin Elph (U) [Mass/Vol] 20.7 % . [facility] Beta globulin Elph (U) [Mass/Vol] Urine beta globulin measurement by electrophoresis (mass/volume) . [facility] Urine protein measurement (m ass/volume)Ordered By: Brook Huddleston on 05-20-2024 Protein (U) [Mass/Vol] Protein [Mass/vol ume] in Urine Not Estab. [facility] Comment on above: Results confirmed on dilution. CBC W Auto Differential pane l (Bld)on 05-17-2024 Basophils (Bld) [#/Vol] 0.0 10*3/uL 0.0 - 0.2 10*3/uL [facility] Basophils/100 WBC Manual cnt (Syn fld) 0.3 % . [facility] Eosinophils (Bld) [#/Vol] 0.4 10*3/uL 0.0 - 0.45 10*3/uL [facility] Eosinophils/100 WBC Manual cnt (Syn fld) 6.3 % . [facility] Erythrocyte distribution width (RBC) [Ratio] 16.5 % High 12.0 - 14.8 % [facility] Hematocrit (Bld) [Volume fraction] 32.3 % Low 38.8 - 50.0 % [facility] Hemoglobin (Bld) [Mass/Vol] 10.8 g/dL Low 13.0 - 17.0 g/dL [facility] Interpretation and review of laboratory results Abnormal [facility] Lymphocytes (Bld) [#/Vol] 1.2 10*3/uL 1.00 - 4.8 10*3/uL [facility] Lymphocytes/100 WBC Manual cnt (Syn fld) 17.5 % . [facility] MCH (RBC) [Entitic mass] 35.1 pg 27.5 - 35.2 pg [facility] MCHC (RBC) [Mass/Vol] 33.4 g/dL 32.5 - 35.6 g/dL [facility] MCV (RBC) [Entitic vol] 105.2 fL High 83.5 - 101 fL [facility] Monocytes (Bld) [#/Vol] 0.5 10*3/uL 0.0 - 0.8 10*3/uL [facility] Monocytes+Macrophages/1 00 WBC Manual cnt (Syn fld) 7.3 % . [facility] Neutrophils (Bld) [#/Vol] 4.7 10*3/uL 1.8 - 7.7 10*3/uL [facility] Neutrophils/100 WBC Manual cnt (Syn fld) 68.6 % . [facility] NRBC 0.1 /100{WBC} 0 - 0.5 /100{WBC} [facility] Platelet mean volume (Bld) [Entitic vol] 8.2 fL 6.6 - 10.1 fL [facility] Platelets (Bld) [#/Vol] 192 10*3/uL 150 - 450 10*3/uL [facility] RBC LM.HPF (Urine sed) [#/Area] 3.07 /[HPF] Low 3.90 - 5.60 [facility] WBC (Bld) [#/Vol] 6.9 10*3/uL 4.1 - 10.5 10*3/uL [facility] WBC LM.HPF (Urine sed) [#/Area] 6.9 10*3/uL 4.1 - 10.5 10*3/uL [facility] Complete Blood Count Auto Di ffon 05-17-2024 Basophils (Bld) [#/Vol] 0.0 10*3/uL Normal 0.0-0.2 [facility] Comment on above: Result Comment: PERF ORMED BY:[facility] [place] [id number] MEDICAL DIRECTORMEAGAN HARDING M.D. Performed By: #### C BC, CMP ####[address] Basophils/100 WBC (Bld) 0.3 % Normal . [facility]ank [facility] Comment on above: Performed By: #### C BC, CMP ####[address] Eosinophils (Bld) [#/Vol] 0.4 10*3/uL Normal 0.0-0.45 [facility] Comment on above: Performed By: #### C AYDEE, CMP ####[address] Eosinophils/100 WBC (Bld) 6.3 % Normal . [facility] Comment on above: Performed By: #### C AYDEE, CMP ####[address] Erythrocyte distribution width (RBC) [Ratio] 16.5 % High 12.0-14.8 [facility] Comment on above: Performed By: #### C AYDEE, CMP ####[address] Hematocrit (Bld) [Volume fraction] 32.3 % Low 38.8-50.0 [facility] Comment on above: Performed By: #### C AYDEE, CMP ####[address] Hemoglobin (Bld) [Mass/Vol] 10.8 g/dL Low 13.0-17.0 [facility] Comment on above: Performed By: #### C BC, CMP ####[address] Lymphocytes (Bld) [#/Vol] 1.2 10*3/uL Normal 1.00-4.8 [facility] Comment on above: Performed By: #### C BC, CMP ####[address] Lymphocytes/100 WBC (Bld) 17.5 % Normal . [facility] Comment on above: Performed By: #### C AYDEE, CMP ####[address] MCH (RBC) [Entitic mass] 35.1 pg Normal 27.5-35.2 [facility] Comment on above: Performed By: #### C BC, CMP ####[address] MCV (RBC) [Entitic vol] 105.2 fL High 83.5-101 [facility] Comment on above: Performed By: #### C AYDEE, CMP ####[address] Mean Corpuscular HGB Conc 33.4 g/dL Normal 32.5-35.6 [facility] Comment on above: Performed By: #### C AYDEE, CMP ####[address] Monocytes (Bld) [#/Vol] 0.5 10*3/uL Normal 0.0-0.8 [facility] Comment on above: Performed By: #### C AYDEE, CMP ####[address] Monocytes/100 WBC (Bld) 7.3 % Normal . [facility] Comment on above: Performed By: #### C BC, CMP ####[address] Neutrophils (Bld) [#/Vol] 4.7 10*3/uL Normal 1.8-7.7 [facility] Comment on above: Performed By: #### C BC, CMP ####[address] Neutrophils/100 WBC (Bld) 68.6 % Normal . [facility] Comment on above: Performed By: #### C BC, CMP ####[address] NRBC% 0.1 /100{WBC} Normal 0-0.5 [facility] Comment on above: Performed By: #### C BC, CMP ####[address] Platelet mean volume (Bld) [Entitic vol] 8.2 fL Normal 6.6-10.1 [facility] Comment on above: Performed By: #### C BC, CMP ####[address] Platelets (Bld) [#/Vol] 192 10*3/uL Normal 150-450 [facility] Comment on above: Performed By: #### C AYDEE, CMP ####[address] RBC (Bld) [#/Vol] 3.07 10*6/uL Low 3.90-5.60 [facility] Comment on above: Performed By: #### C AYDEE, CMP ####[address] WBC (Bld) [#/Vol] 6.9 10*3/uL Normal 4.1-10.5 [facility] Comment on above: Performed By: #### C AYDEE, CMP ####[address] Comprehensive Metabolic Pane mana 05-17-2024 Albumin [Mass/Vol] 3.8 g/dL Normal 3.5-5.7 [facility] Comment on above: Performed By: #### C AYDEE, CMP ####[address] Albumin/Globulin [Mass ratio] 1.5 {ratio} Normal [facility] Comment on above: Performed By: #### C BC, CMP ####[address] ALP [Catalytic activity/Vol] 124 U/L High 34-104 [facility] Comment on above: Performed By: #### C BC, CMP ####[address] ALT [Catalytic activity/Vol] 17 U/L Normal 7-52 [facility] Comment on above: Performed By: #### C BC, CMP ####[address] Anion gap [Moles/Vol] 11.1 mmol/L Normal 6.0-15.0 [facility] e [facility] Comment on above: Performed By: #### C BC, CMP ####[address] AST [Catalytic activity/Vol] 15 U/L Normal 13-39 [facility] Comment on above: Performed By: #### C AYDEE, CMP ####[address] Bilirubin [Mass/Vol] 0.4 mg/dL Normal 0.3-1.0 [facility] Comment on above: Performed By: #### C BC, CMP ####[address] Calcium [Mass/Vol] 8.9 mg/dL Normal 8.6-10.3 [facility] Comment on above: Performed By: #### C AYDEE, CMP ####[address] Chloride [Moles/Vol] 110 mmol/L High 98-107 [facility] Comment on above: Performed By: #### C BC, CMP ####[address] CO2 [Moles/Vol] 24.4 mmol/L Normal 21.0-31.0 [facility] Comment on above: Performed By: #### C BC, CMP ####[address] Creatinine [Mass/Vol] 2.31 mg/dL High 0.70-1.30 [facility] Comment on above: Performed By: #### C BC, CMP ####[address] Creatinine Clr Calc Pharmacy 29.13 Normal [facility] Comment on above: Result Comment: PERF ORMED BY:[address] [place], [place] [phone] MEDICAL DIRECTORMEAGAN HARDING M.D. Performed By: #### C BC, CMP ####[address] [address] [facility] GFR/1.73 sq M.predicted MDRD (S/P/Bld) [Vol rate/Area] 28.033 mL/min/{1.73_m2} Normal [facility] Comment on above: Performed By: #### C BC, CMP ####[address] [address] [facility] Globulin (S) [Mass/Vol] 2.6 g/dL Normal T he [facility] Comment on above: Performed By: #### C BC, CMP ####[address] [address] [facility] Glucose [Mass/Vol] 76 mg/dL Normal 70-100 [facility] Comment on above: Result Comment: [facility] Glucose Reference Range is dependent on time and content of last meal. Glucose of more than 200 mg/dL in a nonstressed, ambulatory subject supports the diagnosis of Diabetes Mellitus. ADA recommended reference range Performed By: #### C BC, CMP ####[address] [address] [facility] Potassium [Moles/Vol] 4.5 mmol/L Normal 3.5-5.1 [facility] Comment on above: Performed By: #### C BC, CMP ####[address] [address] [facility] Protein [Mass/Vol] 6.4 g/dL Normal 6.4-8.9 [facility] Comment on above: Performed By: #### C BC, CMP ####[address] [address] [facility] Sodium [Moles/Vol] 141 mmol/L Normal 136-145 [facility] Comment on above: Performed By: #### C BC, CMP ####[address] [place] [address] [facility] Urea nitrogen [Mass/Vol] 29 mg/dL High 7-25 [facility] Comment on above: Performed By: #### C BC, CMP ####[facility] [id number] [place] [address] [facility] Comprehensive metabolic pane mana 05-17-2024 Albumin [Mass/Vol] 3.8 g/dL 3.5 - 5.7 g/dL [facility] Albumin/Globulin [Mass ratio] 1.5 {ratio} [facility] ALP [Catalytic activity/Vol] 124 U/L High 34 - 104 U/L [facility] ALT [Catalytic activity/Vol] 17 U/L 7 - 52 U/L [facility] Anion gap [Moles/Vol] 11.1 mmol/L 6.0 - 15.0 NO [facility] AST [Catalytic activity/Vol] 15 U/L 13 - 39 U/L [facility] Bilirubin [Mass/Vol] 0.4 mg/dL 0.3 - 1 .0 mg/dL [facility] Calcium [Mass/Vol] 8.9 mg/dL 8.6 - 10. 3 mg/dL [facility] Chloride [Moles/Vol] 110 mmol/L High 98 - 10 7 mmol/L [facility] CO2 [Moles/Vol] 24.4 mmol/L 21.0 - 31.0 mmol/L [facility] Creatinine (U) [Mass/Vol] 2.31 mg/dL High 0.70 - 1.30 mg/dL [facility] CREATININE CLR CALC PHARMACY 29.13 [facility] GFR/1.73 sq M.predicted MDRD (S/P/Bld) [Vol rate/Area] 28.033 mL/min/{1.73_m2} [facility] Globulin (S) [Mass/Vol] 2.6 g/dL [facility] Glucose [Mass/Vol] 76 mg/dL 70 - 100 mg/dL [facility] Comment on above: Random Glucose Refer ence Range is dependent on time and content of last meal. Glucose of more than 200 mg/dL in a nonstressed, ambulatory subject supports the diagnosis of Diabetes Mellitus. ADA recommended reference range Interpretation and review of laboratory results Abnormal [facility] Potassium [Moles/Vol] 4.5 mmol/L 3.5 - 5.1 mmol/L [facility] Protein [Mass/Vol] 6.4 g/dL 6.4 - 8.9 g/dL [facility] Sodium [Moles/Vol] 141 mmol/L 136 - 145 mmol/L [facility] Urea nitrogen [Mass/Vol] 29 mg/dL High 7 - 25 mg/dL [facility] CBC W Auto Differential pane l (Bld)on 05-06-2024 Basophils (Bld) [#/Vol] 0.0 10*3/uL 0.0 - 0.2 10*3/uL [facility] Basophils/100 WBC Manual cnt (Syn fld) 0.5 % . [facility] Eosinophils (Bld) [#/Vol] 0.4 10*3/uL 0.0 - 0.45 10*3/uL [facility] Eosinophils/100 WBC Manual cnt (Syn fld) 6.3 % . [facility] Erythrocyte distribution width (RBC) [Ratio] 16.0 % High 12.0 - 14.8 % [facility] Hematocrit (Bld) [Volume fraction] 29.1 % Low 38.8 - 50.0 % [facility] Hemoglobin (Bld) [Mass/Vol] 9.7 g/dL Low 13.0 - 17.0 g/dL [facility] Interpretation and review of laboratory results Abnormal [facility] Lymphocytes (Bld) [#/Vol] 1.3 10*3/uL 1.00 - 4.8 10*3/uL [facility] Lymphocytes/100 WBC Manual cnt (Syn fld) 18.5 % . [facility] MCH (RBC) [Entitic mass] 35.0 pg 27.5 - 35.2 pg [facility] MCHC (RBC) [Mass/Vol] 33.4 g/dL 32.5 - 35.6 g/dL [facility] MCV (RBC) [Entitic vol] 105.0 fL High 83.5 - 101 fL [facility] Monocytes (Bld) [#/Vol] 0.5 10*3/uL 0.0 - 0.8 10*3/uL [facility] Monocytes+Macrophages/1 00 WBC Manual cnt (Syn fld) 6.6 % . [facility] Neutrophils (Bld) [#/Vol] 4.7 10*3/uL 1.8 - 7.7 10*3/uL [facility] Neutrophils/100 WBC Manual cnt (Syn fld) 68.1 % . [facility] NRBC 0.2 /100{WBC} 0 - 0.5 /100{WBC} [facility] Platelet mean volume (Bld) [Entitic vol] 8.1 fL 6.6 - 10.1 fL [facility] Platelets (Bld) [#/Vol] 185 10*3/uL 150 - 450 10*3/uL [facility] RBC LM.HPF (Urine sed) [#/Area] 2.77 /[HPF] Low 3.90 - 5.60 [facility] WBC (Bld) [#/Vol] 6.9 10*3/uL 4.1 - 10.5 10*3/uL [facility] WBC LM.HPF (Urine sed) [#/Area] 6.9 10*3/uL 4.1 - 10.5 10*3/uL [facility] Complete Blood Count Auto Di ffon 05-06-2024 Basophils (Bld) [#/Vol] 0.0 10*3/uL Normal 0.0-0.2 [facility] Comment on above: Result Comment: PERF ORMED BY:[address] [place], [place] [phone] MEDICAL DIRECTORMEAGAN HARDING M.D. Performed By: #### C BC ####[address] Basophils/100 WBC (Bld) 0.5 % Normal . Josefa weems [facility] Comment on above: Performed By: #### C BC ####[address] Eosinophils (Bld) [#/Vol] 0.4 10*3/uL Normal 0.0-0.45 [facility] Comment on above: Performed By: #### C BC ####[address] Eosinophils/100 WBC (Bld) 6.3 % Normal . [facility] Comment on above: Performed By: #### C BC ####[address] Erythrocyte distribution width (RBC) [Ratio] 16.0 % High 12.0-14.8 [facility] Comment on above: Performed By: #### C BC ####[address] Hematocrit (Bld) [Volume fraction] 29.1 % Low 38.8-50.0 [facility] Comment on above: Performed By: #### C BC ####[address] Hemoglobin (Bld) [Mass/Vol] 9.7 g/dL Low 13.0-17.0 [facility] Comment on above: Performed By: #### C BC ####[address] Lymphocytes (Bld) [#/Vol] 1.3 10*3/uL Normal 1.00-4.8 [facility] Comment on above: Performed By: #### C BC ####[address] Lymphocytes/100 WBC (Bld) 18.5 % Normal . [facility] Comment on above: Performed By: #### C BC ####[address] MCH (RBC) [Entitic mass] 35.0 pg Normal 27.5-35.2 [facility] Comment on above: Performed By: #### C BC ####[address] MCV (RBC) [Entitic vol] 105.0 fL High 83.5-101 T [facility] Comment on above: Performed By: #### C BC ####[address] Mean Corpuscular HGB Conc 33.4 g/dL Normal 32.5-35.6 [facility] Comment on above: Performed By: #### C BC ####[address] Monocytes (Bld) [#/Vol] 0.5 10*3/uL Normal 0.0-0.8 [facility] Comment on above: Performed By: #### C BC ####[address] Monocytes/100 WBC (Bld) 6.6 % Normal . T [facility] Comment on above: Performed By: #### C BC ####[address] Neutrophils (Bld) [#/Vol] 4.7 10*3/uL Normal 1.8-7.7 [facility] Comment on above: Performed By: #### C BC ####[address] Neutrophils/100 WBC (Bld) 68.1 % Normal . [facility] Comment on above: Performed By: #### C BC ####[address] NRBC% 0.2 /100{WBC} Normal 0-0.5 [facility] Comment on above: Performed By: #### C BC ####[address] Platelet mean volume (Bld) [Entitic vol] 8.1 fL Normal 6.6-10.1 [facility] Comment on above: Performed By: #### C BC ####[address] Platelets (Bld) [#/Vol] 185 10*3/uL Normal 150-450 [facility] Comment on above: Performed By: #### C BC ####[address] RBC (Bld) [#/Vol] 2.77 10*6/uL Low 3.90-5.60 [facility] Comment on above: Performed By: #### C BC ####[address] WBC (Bld) [#/Vol] 6.9 10*3/uL Normal 4.1-10.5 [facility] Comment on above: Performed By: #### C BC ####[address] [address] [facility] Comprehensive Metabolic Pane mana 05-06-2024 Albumin [Mass/Vol] 3.9 g/dL Normal 3.5-5.7 [facility] Comment on above: Performed By: #### C MP ####[place] [id number] [facility] Albumin/Globulin [Mass ratio] 1.7 {ratio} Normal [facility] Comment on above: Performed By: #### C MP ####[place] [id number] [facility] ALP [Catalytic activity/Vol] 125 U/L High 34-104 [facility] Comment on above: Performed By: #### C MP ####[place] [id number] [facility] ALT [Catalytic activity/Vol] 19 U/L Normal 7-52 [facility] Comment on above: Performed By: #### C MP ####[place] [id number] [facility] Anion gap [Moles/Vol] 9.3 mmol/L Normal 6.0-15.0 [facility] Comment on above: Performed By: #### C MP ####[place] [phone] [facility] AST [Catalytic activity/Vol] 16 U/L Normal 13-39 [facility] Comment on above: Performed By: #### C MP ####[place] [id number] [facility] Bilirubin [Mass/Vol] 0.3 mg/dL Normal 0.3-1.0 [facility] Comment on above: Performed By: #### C MP ####[place] [id number] [facility] Calcium [Mass/Vol] 8.9 mg/dL Normal 8.6-10.3 [facility] Comment on above: Performed By: #### C MP ####[place] [id number] [facility] Chloride [Moles/Vol] 109 mmol/L High 98-107 [facility] Comment on above: Performed By: #### C MP ####[place] [id number] [facility] CO2 [Moles/Vol] 24.1 mmol/L Normal 21.0-31.0 [facility] Comment on above: Performed By: #### C MP ####[address] Creatinine [Mass/Vol] 2.24 mg/dL High 0.70-1.30 [facility] Comment on above: Performed By: #### C MP ####[address] Creatinine Clr Calc Pharmacy 30.04 Normal [facility] Comment on above: Result Comment: PERF ORMED BY:[address] [place], [place] [phone] MEDICAL DIRECTORMEAGAN HARDING M.D. Performed By: #### C MP ####[address] GFR/1.73 sq M.predicted MDRD (S/P/Bld) [Vol rate/Area] 29.088 mL/min/{1.73_m2} Normal [facility] Comment on above: Performed By: #### C MP ####[place] [id number] [facility] Globulin (S) [Mass/Vol] 2.3 g/dL Normal T [facility] Comment on above: Performed By: #### C MP ####[address] Glucose [Mass/Vol] 143 mg/dL High 70-100 [facility] Comment on above: Result Comment: [facility] Glucose Reference Range is dependent on time and content of last meal. Glucose of more than 200 mg/dL in a nonstressed, ambulatory subject supports the diagnosis of Diabetes Mellitus. ADA recommended reference range Performed By: #### C MP ####[place] [id number] [place] [address] [facility] Potassium [Moles/Vol] 4.4 mmol/L Normal 3.5-5.1 [facility] Comment on above: Performed By: #### C MP ####[place] [id number] [place] [id number] [facility] Protein [Mass/Vol] 6.2 g/dL Low 6.4-8.9 [facility] Comment on above: Performed By: #### C MP ####[place] [id number] [facility] Sodium [Moles/Vol] 138 mmol/L Normal 136-145 [facility] Comment on above: Performed By: #### C MP ####[place] [id number] [facility] Urea nitrogen [Mass/Vol] 24 mg/dL Normal 7-25 [facility] Comment on above: Performed By: #### C MP ####[place] [id number] [facility] Comprehensive metabolic pane mana 05-06-2024 Albumin [Mass/Vol] 3.9 g/dL 3.5 - 5.7 g/dL [facility] Albumin/Globulin [Mass ratio] 1.7 {ratio} [facility] ALP [Catalytic activity/Vol] 125 U/L High 34 - 104 U/L [facility] ALT [Catalytic activity/Vol] 19 U/L 7 - 52 U/L [facility] Anion gap [Moles/Vol] 9.3 mmol/L 6.0 - 15.0 [facility] AST [Catalytic activity/Vol] 16 U/L 13 - 39 U/L [facility] Bilirubin [Mass/Vol] 0.3 mg/dL 0.3 - 1 .0 mg/dL [facility] Calcium [Mass/Vol] 8.9 mg/dL 8.6 - 10. 3 mg/dL [facility] Chloride [Moles/Vol] 109 mmol/L High 98 - 10 7 mmol/L [facility] CO2 [Moles/Vol] 24.1 mmol/L 21.0 - 31.0 mmol/L [facility] Creatinine (U) [Mass/Vol] 2.24 mg/dL High 0.70 - 1.30 mg/dL [facility] CREATININE CLR CALC PHARMACY 30.04 [facility] GFR/1.73 sq M.predicted MDRD (S/P/Bld) [Vol rate/Area] 29.088 mL/min/{1.73_m2} [facility] Globulin (S) [Mass/Vol] 2.3 g/dL [facility] Glucose [Mass/Vol] 143 mg/dL High 70 - 100 mg/dL [facility] Comment on above: Random Glucose Refer ence Range is dependent on time and content of last meal. Glucose of more than 200 mg/dL in a nonstressed, ambulatory subject supports the diagnosis of Diabetes Mellitus. ADA recommended reference range Interpretation and review of laboratory results Abnormal [facility] Potassium [Moles/Vol] 4.4 mmol/L 3.5 - 5.1 mmol/L [facility] Protein [Mass/Vol] 6.2 g/dL Low 6.4 - 8.9 g/dL [facility] Sodium [Moles/Vol] 138 mmol/L 136 - 145 mmol/L [facility] Urea nitrogen [Mass/Vol] 24 mg/dL 7 - 25 mg/dL [facility] Ambulatory Visit Summaryon 0 04-26-2024 Ambulatory Visit Summary Ambulatory Visit Summary PATSY CUNNINGHAM :1945 Visit Date:04/26/2024 Ambulatory Visit Instructions Your Diagnosis Noncompliant bladder Your Care Team Attending Physician - CARLEY Damian APRN, Makayla Soriano Primary Care Physician - HELEN HEATH MD This Is Your Medications List aspirin (aspirin 81 mg Chew Tab) atorvastatin (atorvastatin 20 mg Tab) bifidobacterium-lactobacil huber (Probiotic + Colostrum) cephalexin (cephalexin 500 mg Cap) cholecalciferol (Vitamin D3 2000 intl units) cyanocobalamin (Vitamin B-12 100 mcg oral tablet) famotidine (famotidine 20 mg Tab) insulin glargine (Lantus insulin) insulin lispro (Humalog) losartan (losartan 25 mg Tab) metformin (metformin 500 mg Tab) multivitamin with iron (Gentle Iron oral capsule) multivitamin with minerals (One A Day Men's Complete oral tablet) nitrofurantoin (Macrobid 100 mg Cap) oxybutynin (oxybutynin 10 mg ER Tab) Procedures Performed Cystoscopic replacement of [...] to do next Scheduled Follow-Up Appointments Thursday 2:30 PM EDT With: CARLEY Damian APRN, Makayla Soriano Where: [facility] [place] [id number]- Medications What How Much When Instructions Unchanged aspirin (aspirin 81 mg Chew Tab) Chewed Every day Unchanged atorvastatin (atorvastatin 20 mg Tab) 1 Tablets By Mouth Every day Unchanged bifidobacterium-lactobacil huber (Probiotic + Colostrum) By Mouth Every day Unchanged cephalexin (cephalexin 500 mg Cap) 1 Capsules By Mouth 2 times a day Duration: 7 Days Unchanged cholecalciferol (Vitamin D3 2000 intl units) By Mouth Every day Unchanged cyanocobalamin (Vitamin B-12 100 mcg oral tablet) By Mouth Every day Unchanged famotidine (famotidine 20 mg Tab) 1 Tablets By Mouth Once a day (at bedtime) Unchanged insulin glargine (Lantus insulin) 25 Units Subcutaneous Once a day (at bedtime) Unchanged insulin lispro (Humalog) 8 Units Subcutaneous Unchanged losartan (losartan 25 mg Tab) By Mouth Every day Unchanged metformin (metformin 500 mg Tab) 1 Tablets By Mouth 2 times a day Unchanged multivitamin with iron (Gentle Iron oral capsule) 1 Capsules By Mouth Every day Unchanged multivitamin with minerals (One A Day Men's Complete oral tablet) By Mouth Every day Unchanged nitrofurantoin (Macrobid 100 mg Cap) 1 Capsules By Mouth 2 times a day take 1 cap morning of cath change and 12hrs after Unchanged oxybutynin (oxybutynin 10 mg ER Tab) 1 Tablets By Mouth Every day Allergies Myrbetriq (Multiple open mouth wounds) gabapentin (Unknown, Rash) Problems Ongoing - Any problem that you are currently receiving treatment for. Asymptomatic microscopic hematuria Bilateral hydronephrosis BPH with urinary obstruction Diabetes Dysuria Elevated cholesterol Family history of prostate cancer in father Glycosuria History of kidney stones HTN (hypertension) Hydroureter Hydroureteronephrosis Incomplete bladder emptying Kidney stones Microhematuria Nocturia Noncompliant bladder OAB (overactive bladder) Prostate cancer Recurrent UTI Rheumatoid arthritis Ureteral stricture UTI (urinary tract infection) UTI symptoms Weak urine stream Patient Survey You may receive a survey via text or e-mail asking about your office visit. Please share your experience with us by completing your survey. We appreciate your feedback and thank you for choosing us for your care. Normal [facility] CBC W Auto Differential pane l (Bld)on 04-22-2024 Basophils (Bld) [#/Vol] 0.0 10*3/uL 0.0 - 0.2 10*3/uL [facility] [facility] Bas[facility]/100 WBC Manual cnt (Syn fld) 0.2 % . [facility] Eosinophils (Bld) [#/Vol] 0.3 10*3/uL 0.0 - 0.45 10*3/uL [facility] Eosinophils/100 WBC Manual cnt (Syn fld) 5.2 % . [facility] Erythrocyte distribution width (RBC) [Ratio] 16.2 % High 12.0 - 14.8 % [facility] Hematocrit (Bld) [Volume fraction] 30.2 % Low 38.8 - 50.0 % [facility] Hemoglobin (Bld) [Mass/Vol] 10.1 g/dL Low 13.0 - 17.0 g/dL [facility] Interpretation and review of laboratory results Abnormal [facility] Lymphocytes (Bld) [#/Vol] 0.5 10*3/uL Low 1.00 - 4.8 10*3/uL [facility] Lymphocytes/100 WBC Manual cnt (Syn fld) 8.1 % . [facility] MCH (RBC) [Entitic mass] 35.5 pg High 27.5 - 35.2 pg [facility] MCHC (RBC) [Mass/Vol] 33.3 g/dL 32.5 - 35.6 g/dL [facility] MCV (RBC) [Entitic vol] 106.8 fL High 83.5 - 101 fL [facility] Monocytes (Bld) [#/Vol] 0.5 10*3/uL 0.0 - 0.8 10*3/uL [facility] Monocytes+Macrophages/1 00 WBC Manual cnt (Syn fld) 7.3 % . [facility] Neutrophils (Bld) [#/Vol] 4.9 10*3/uL 1.8 - 7.7 10*3/uL [facility] Neutrophils/100 WBC Manual cnt (Syn fld) 79.2 % . [facility] NRBC 0.0 /100{WBC} 0 - 0.5 /100{WBC} [facility] Platelet mean volume (Bld) [Entitic vol] 8.3 fL 6.6 - 10.1 fL [facility] Platelets (Bld) [#/Vol] 177 10*3/uL 150 - 450 10*3/uL [facility] RBC LM.HPF (Urine sed) [#/Area] 2.83 /[HPF] Low 3.90 - 5.60 [facility] WBC (Bld) [#/Vol] 6.3 10*3/uL 4.1 - 10.5 10*3/uL [facility] WBC LM.HPF (Urine sed) [#/Area] 6.3 10*3/uL 4.1 - 10.5 10*3/uL [facility] Complete Blood Count Auto Di ffon 04-22-2024 Basophils (Bld) [#/Vol] 0.0 10*3/uL Normal 0.0-0.2 [facility] Comment on above: Result Comment: PERF ORMED BY:[address] [place], [place] [id number] MEDICAL DIRECTORMEAGAN HARDING M.D. Performed By: #### C MP, CBC ####[facility] [place] [address] [facility] Basophils/100 WBC (Bld) 0.2 % Normal . [facility] Comment on above: Performed By: #### C MP, CBC ####[place] [id number] Eosinophils (Bld) [#/Vol] 0.3 10*3/uL Normal 0.0-0.45 [facility] Comment on above: Performed By: #### C MP, CBC ####[address] Eosinophils/100 WBC (Bld) 5.2 % Normal . [facility] Comment on above: Performed By: #### C MP, CBC ####[address] Erythrocyte distribution width (RBC) [Ratio] 16.2 % High 12.0-14.8 [facility] Comment on above: Performed By: #### C MP, CBC ####[address] Hematocrit (Bld) [Volume fraction] 30.2 % Low 38.8-50.0 [facility] Comment on above: Performed By: #### C MP, CBC ####[address] Hemoglobin (Bld) [Mass/Vol] 10.1 g/dL Low 13.0-17.0 [facility] Comment on above: Performed By: #### C MP, CBC ####[address] Lymphocytes (Bld) [#/Vol] 0.5 10*3/uL Low 1.00-4.8 [facility] Comment on above: Performed By: #### C MP, CBC ####[address] Lymphocytes/100 WBC (Bld) 8.1 % Normal . [facility] Comment on above: Performed By: #### C MP, CBC ####[address] MCH (RBC) [Entitic mass] 35.5 pg High 27.5-35.2 [facility] Comment on above: Performed By: #### C MP, CBC ####[place] [id number] [facility] MCV (RBC) [Entitic vol] 106.8 fL High 83.5-101 [facility] Comment on above: Performed By: #### C MP, CBC ####[address] Mean Corpuscular HGB Conc 33.3 g/dL Normal 32.5-35.6 [facility] Comment on above: Performed By: #### C MP, CBC ####[address] Monocytes (Bld) [#/Vol] 0.5 10*3/uL Normal 0.0-0.8 [facility] Comment on above: Performed By: #### C MP, CBC ####[address] Monocytes/100 WBC (Bld) 7.3 % Normal . [facility] Comment on above: Performed By: #### C MP, CBC ####[address] Neutrophils (Bld) [#/Vol] 4.9 10*3/uL Normal 1.8-7.7 [facility] Comment on above: Performed By: #### C MP, CBC ####[address] Neutrophils/100 WBC (Bld) 79.2 % Normal . [facility] Comment on above: Performed By: #### C MP, CBC ####[place] [id number] [facility] NRBC% 0.0 /100{WBC} Normal 0-0.5 [facility] Comment on above: Performed By: #### C MP, CBC ####[address] Platelet mean volume (Bld) [Entitic vol] 8.3 fL Normal 6.6-10.1 [facility] Comment on above: Performed By: #### C MP, CBC ####[place] [id number] [facility] Platelets (Bld) [#/Vol] 177 10*3/uL Normal 150-450 [facility] Comment on above: Performed By: #### C MP, CBC ####[address] RBC (Bld) [#/Vol] 2.83 10*6/uL Low 3.90-5.60 [facility] Comment on above: Performed By: #### C MP, CBC ####[place] [id number] [facility] WBC (Bld) [#/Vol] 6.3 10*3/uL Normal 4.1-10.5 [facility] Comment on above: Performed By: #### C MP, CBC ####[place] [id number] [facility] Comprehensive Metabolic Pane mana 04-22-2024 Albumin [Mass/Vol] 3.8 g/dL Normal 3.5-5.7 [facility] Comment on above: Performed By: #### C MP, CBC ####[address] Albumin/Globulin [Mass ratio] 1.5 {ratio} Normal [facility] Comment on above: Performed By: #### C MP, CBC ####[place] [id number] [facility] ALP [Catalytic activity/Vol] 109 U/L High 34-104 [facility] Comment on above: Performed By: #### C MP, CBC ####[place] [id number] [facility] ALT [Catalytic activity/Vol] 15 U/L Normal 7-52 [facility] Comment on above: Performed By: #### C MP, CBC ####[address] Anion gap [Moles/Vol] 10.5 mmol/L Normal 6.0-15.0 [facility] Comment on above: Performed By: #### C MP, CBC ####[address] [address] [facility] AST [Catalytic activity/Vol] 18 U/L Normal 13-39 [facility] Comment on above: Performed By: #### C MP, CBC ####[place] [id number] [facility] Bilirubin [Mass/Vol] 0.5 mg/dL Normal 0.3-1.0 [facility] Comment on above: Performed By: #### C MP, CBC ####[place] [id number] [facility] Calcium [Mass/Vol] 8.9 mg/dL Normal 8.6-10.3 [facility] Comment on above: Performed By: #### C MP, CBC ####[place] [id number] [facility] Chloride [Moles/Vol] 107 mmol/L Normal 98-107 [facility] Comment on above: Performed By: #### C MP, CBC ####[place] [phone] [facility] CO2 [Moles/Vol] 23.4 mmol/L Normal 21.0-31.0 [facility] Comment on above: Performed By: #### C MP, CBC ####[place] [id number] [facility] Creatinine [Mass/Vol] 2.49 mg/dL High 0.70-1.30 [facility] Comment on above: Performed By: #### C MP, CBC ####[place] [id number] [facility] Creatinine Clr Calc Pharmacy 27.03 Normal [facility] Comment on above: Result Comment: PERF ORMED BY:[place] [address] [place], [place] [id number] MEDICAL DIRECTORMEAGAN HARDING M.D. Performed By: #### C MP, CBC ####[address] [address] [facility] GFR/1.73 sq M.predicted MDRD (S/P/Bld) [Vol rate/Area] 25.619 mL/min/{1.73_m2} Normal [facility] Comment on above: Performed By: #### C MP, CBC ####[address] Globulin (S) [Mass/Vol] 2.5 g/dL Normal [facility] Comment on above: Performed By: #### C MP, CBC ####[address] Glucose [Mass/Vol] 241 mg/dL High 70-100 [facility] Comment on above: Result Comment: [facility] Glucose Reference Range is dependent on time and content of last meal. Glucose of more than 200 mg/dL in a nonstressed, ambulatory subject supports the diagnosis of Diabetes Mellitus. ADA recommended reference range Performed By: #### C MP, CBC ####[address] Potassium [Moles/Vol] 4.9 mmol/L Normal 3.5-5.1 [facility] Comment on above: Performed By: #### C MP, CBC ####[address] Protein [Mass/Vol] 6.3 g/dL Low 6.4-8.9 [facility] Comment on above: Performed By: #### C MP, CBC ####[address] Sodium [Moles/Vol] 136 mmol/L Normal 136-145 [facility] Comment on above: Performed By: #### C MP, CBC ####[place] [id number] [facility] Urea nitrogen [Mass/Vol] 30 mg/dL High 7-25 [facility] Comment on above: Performed By: #### C MP, CBC ####[place] [phone] [facility] Comprehensive metabolic pane mana 04-22-2024 Albumin [Mass/Vol] 3.8 g/dL 3.5 - 5.7 g/dL [facility] Albumin/Globulin [Mass ratio] 1.5 {ratio} [facility] ALP [Catalytic activity/Vol] 109 U/L High 34 - 104 U/L [facility] ALT [Catalytic activity/Vol] 15 U/L 7 - 52 U/L [facility] Anion gap [Moles/Vol] 10.5 mmol/L 6.0 - 15.0 NO [facility] AST [Catalytic activity/Vol] 18 U/L 13 - 39 U/L [facility] Bilirubin [Mass/Vol] 0.5 mg/dL 0.3 - 1 .0 mg/dL [facility] Calcium [Mass/Vol] 8.9 mg/dL 8.6 - 10. 3 mg/dL [facility] Chloride [Moles/Vol] 107 mmol/L 98 - 10 7 mmol/L [facility] CO2 [Moles/Vol] 23.4 mmol/L 21.0 - 31.0 mmol/L [facility] Creatinine (U) [Mass/Vol] 2.49 mg/dL High 0.70 - 1.30 mg/dL [facility] CREATININE CLR CALC PHARMACY 27.03 [facility] GFR/1.73 sq M.predicted MDRD (S/P/Bld) [Vol rate/Area] 25.619 mL/min/{1.73_m2} [facility] Globulin (S) [Mass/Vol] 2.5 g/dL [facility] Glucose [Mass/Vol] 241 mg/dL High 70 - 100 mg/dL [facility] Comment on above: Random Glucose Refer ence Range is dependent on time and content of last meal. Glucose of more than 200 mg/dL in a nonstressed, ambulatory subject supports the diagnosis of Diabetes Mellitus. ADA recommended reference range Interpretation and review of laboratory results Abnormal [facility] Potassium [Moles/Vol] 4.9 mmol/L 3.5 - 5.1 mmol/L [facility] Protein [Mass/Vol] 6.3 g/dL Low 6.4 - 8.9 g/dL [facility] Sodium [Moles/Vol] 136 mmol/L 136 - 145 mmol/L [facility] Urea nitrogen [Mass/Vol] 30 mg/dL High 7 - 25 mg/dL [facility] C Urineon 04-21-2024 Bacteria identified Cx [facility] (U) Microbiology PROCEDURE: Urine Culture [R1] SOURCE: U Cath BODY SITE: COLLECTED DATE/TIME: 04/19/2024 15:43 EDT RECEIVED DATE/TIME: 04/19/2024 18:06 EDT START DATE/TIME: 04/19/2024 18:06 EDT FREE TEXT SOURCE: cath Orzech HAND DEICER ELEMENT WINDER, BRANCH SALES MANAGER-C, Orzech HAND DEICER ELEMENT WINDER, BRANCH SALES MANAGER-C, Makayla X Makayla X FINAL REPORTS Final Report [] Verified Date/Time: 04/21/2024 10:35 EDT >100,000 cfu/ml Klebsiella oxytoca SUSCEPTIBILITY RESULTS _ LEGEND: S=Susceptible, N/R=Not Reported, Blank=Data not available, or drug not advisable or tested, I=Intermediate, ESBL=Extended spectrum beta-lactamase, R=Resistant, TFG=Thymidine-dependent strain, RADHA=Beta-lactamase positive, DEEPA=mcg/m;(mg/L), S*=Predicted susceptible interp, R*=Predicted resistant interp Kleoxy Antibiotic DEEPA Dilutn DEEPA Interp Ampicillin >16 R Ampicillin/ <=8/4 S Sulbactam Aztreonam <=4 S Cefazolin 4 S Cefepime <=2 S Ceftazidime <=1 S Ceftazidime/ <=8 S Avibactam Ceftriaxone <=1 S Cefuroxime <=4 S Ciprofloxacin <=0.25 S Ertapenem <=0.5 S Gentamicin <=2 S Levofloxacin <=0.5 S Meropenem <=1 S Nitrofurantoin <=32 S Piperacillin/ <=8 S Tazobactam Tetracycline <=4 S Tobramycin <=2 S Trimethoprim/ <=2/38 S Sulfa Performing Locations R1: This test was performed at: [facility], [address] [place] [address], [phone] , Normal [facility] Comment on above: Performed By: #### 2 [id number] #### [facility] [address] [place] [id number] Ambulatory Visit Summaryon 0 04-19-2024 Ambulatory Visit Summary Ambulatory Visit Summary PATSY CUNNINGHAM :1945 Visit Date:04/19/2024 Ambulatory Visit Instructions Your Care Team Attending Physician - CARLEY Damian APRN, Makayla Soriano Primary Care Physician - HELEN HEATH MD This Is Your Medications List aspirin (aspirin 81 mg Chew Tab) atorvastatin (atorvastatin 20 mg Tab) bifidobacterium-lactobacil huber (Probiotic + Colostrum) cefdinir (cefdinir 300 mg Cap) cholecalciferol (Vitamin D3 2000 intl units) cyanocobalamin (Vitamin B-12 100 mcg oral tablet) famotidine (famotidine 20 mg Tab) insulin glargine (Lantus insulin) insulin lispro (Humalog) losartan (losartan 25 mg Tab) metformin (metformin 500 mg Tab) multivitamin with iron (Gentle Iron oral capsule) multivitamin with minerals (One A Day Men's Complete oral tablet) nitrofurantoin (Macrobid 100 mg Cap) oxybutynin (oxybutynin 10 mg ER Tab) Procedures Performed Cystoscopic replacement of [...] Medications What How Much When Instructions Unchanged aspirin (aspirin 81 mg Chew Tab) Chewed Every day Unchanged atorvastatin (atorvastatin 20 mg Tab) 1 Tablets By Mouth Every day Unchanged bifidobacterium-lactobacil huber (Probiotic + Colostrum) By Mouth Every day Unchanged cefdinir (cefdinir 300 mg Cap) Unchanged cholecalciferol (Vitamin D3 2000 intl units) By Mouth Every day Unchanged cyanocobalamin (Vitamin B-12 100 mcg oral tablet) By Mouth Every day Unchanged famotidine (famotidine 20 mg Tab) 1 Tablets By Mouth Once a day (at bedtime) Unchanged insulin glargine (Lantus insulin) 25 Units Subcutaneous Once a day (at bedtime) Unchanged insulin lispro (Humalog) 8 Units Subcutaneous Unchanged losartan (losartan 25 mg Tab) By Mouth Every day Unchanged metformin (metformin 500 mg Tab) 1 Tablets By Mouth 2 times a day Unchanged multivitamin with iron (Gentle Iron oral capsule) 1 Capsules By Mouth Every day Unchanged multivitamin with minerals (One A Day Men's Complete oral tablet) By Mouth Every day Unchanged nitrofurantoin (Macrobid 100 mg Cap) 1 Capsules By Mouth 2 times a day take 1 cap morning of cath change and 12hrs after Unchanged oxybutynin (oxybutynin 10 mg ER Tab) 1 Tablets By Mouth Every day Allergies Myrbetriq (Multiple open mouth wounds) gabapentin (Unknown, Rash) Problems Ongoing - Any problem that you are currently receiving treatment for. Asymptomatic microscopic hematuria Bilateral hydronephrosis BPH with urinary obstruction Diabetes Dysuria Elevated cholesterol Family history of prostate cancer in father Glycosuria History of kidney stones HTN (hypertension) Hydroureter Hydroureteronephrosis Incomplete bladder emptying Kidney stones Microhematuria Nocturia Noncompliant bladder OAB (overactive bladder) Prostate cancer Recurrent UTI Rheumatoid arthritis Ureteral stricture UTI (urinary tract infection) UTI symptoms Weak urine stream Patient Survey You may receive a survey via text or e-mail asking about your office visit. Please share your experience with us by completing your survey. We appreciate your feedback and thank you for choosing us for your care. Normal [facility] CBC W Auto Differential pane l (Bld)on 04-08-2024 Basophils (Bld) [#/Vol] 0.0 10*3/uL 0.0 - 0.2 10*3/uL [facility] Basophils/100 WBC Manual cnt (Syn fld) 0.7 % . [facility] Eosinophils (Bld) [#/Vol] 0.5 10*3/uL High 0.0 - 0.45 10*3/uL [facility] Eosinophils/100 WBC Manual cnt (Syn fld) 7.7 % . [facility] Erythrocyte distribution width (RBC) [Ratio] 16.1 % High 12.0 - 14.8 % [facility] Hematocrit (Bld) [Volume fraction] 29.2 % Low 38.8 - 50.0 % [facility] Hemoglobin (Bld) [Mass/Vol] 9.9 g/dL Low 13.0 - 17.0 g/dL [facility] Interpretation and review of laboratory results Abnormal [facility] Lymphocytes (Bld) [#/Vol] 0.9 10*3/uL Low 1.00 - 4.8 10*3/uL [facility] Lymphocytes/100 WBC Manual cnt (Syn fld) 13.5 % . [facility] MCH (RBC) [Entitic mass] 36.5 pg High 27.5 - 35.2 pg [facility] MCHC (RBC) [Mass/Vol] 33.9 g/dL 32.5 - 35.6 g/dL [facility] MCV (RBC) [Entitic vol] 107.5 fL High 83.5 - 101 fL [facility] Monocytes (Bld) [#/Vol] 0.5 10*3/uL 0.0 - 0.8 10*3/uL [facility] Monocytes+Macrophages/1 00 WBC Manual cnt (Syn fld) 8.3 % . [facility] Neutrophils (Bld) [#/Vol] 4.6 10*3/uL 1.8 - 7.7 10*3/uL [facility] Neutrophils/100 WBC Manual cnt (Syn fld) 69.8 % . [facility] NRBC 0.1 /100{WBC} 0 - 0.5 /100{WBC} [facility] Platelet mean volume (Bld) [Entitic vol] 8.4 fL 6.6 - 10.1 fL [facility] Platelets (Bld) [#/Vol] 196 10*3/uL 150 - 450 10*3/uL [facility] RBC LM.HPF (Urine sed) [#/Area] 2.72 /[HPF] Low 3.90 - 5.60 [facility] WBC (Bld) [#/Vol] 6.5 10*3/uL 4.1 - 10.5 10*3/uL [facility] WBC LM.HPF (Urine sed) [#/Area] 6.5 10*3/uL 4.1 - 10.5 10*3/uL [facility] Complete Blood Count Auto Di ffon 04-08-2024 Basophils (Bld) [#/Vol] 0.0 10*3/uL Normal 0.0-0.2 [facility] Comment on above: Result Comment: PERF ORMED BY:[address], [place] [id number] MEDICAL DIRECTORMEAGAN HARDING M.D. Performed By: #### C MP, CBC ####[address] Basophils/100 WBC (Bld) 0.7 % Normal . [facility] Comment on above: Performed By: #### C MP, CBC ####[address] Eosinophils (Bld) [#/Vol] 0.5 10*3/uL High 0.0-0.45 [facility] Comment on above: Performed By: #### C MP, CBC ####[address] Eosinophils/100 WBC (Bld) 7.7 % Normal . [facility] Comment on above: Performed By: #### C MP, CBC ####[address] Erythrocyte distribution width (RBC) [Ratio] 16.1 % High 12.0-14.8 [facility] Comment on above: Performed By: #### C MP, CBC ####[place] [address] [place] Hematocrit (Bld) [Volume fraction] 29.2 % Low 38.8-50.0 [facility] Comment on above: Performed By: #### C MP, CBC ####[address] Hemoglobin (Bld) [Mass/Vol] 9.9 g/dL Low 13.0-17.0 [facility] Comment on above: Performed By: #### C MP, CBC ####[address] Lymphocytes (Bld) [#/Vol] 0.9 10*3/uL Low 1.00-4.8 [facility] Comment on above: Performed By: #### C MP, CBC ####[address] Lymphocytes/100 WBC (Bld) 13.5 % Normal . [facility] Comment on above: Performed By: #### C MP, CBC ####[address] MCH (RBC) [Entitic mass] 36.5 pg High 27.5-35.2 [facility] Comment on above: Performed By: #### C MP, CBC ####[address] MCV (RBC) [Entitic vol] 107.5 fL High 83.5-101 [facility] Comment on above: Performed By: #### C MP, CBC ####[address] Mean Corpuscular HGB Conc 33.9 g/dL Normal 32.5-35.6 [facility] Comment on above: Performed By: #### C MP, CBC ####[address] Monocytes (Bld) [#/Vol] 0.5 10*3/uL Normal 0.0-0.8 [facility] Comment on above: Performed By: #### C MP, CBC ####[address] Monocytes/100 WBC (Bld) 8.3 % Normal . T [facility] Comment on above: Performed By: #### C MP, CBC ####[address] Neutrophils (Bld) [#/Vol] 4.6 10*3/uL Normal 1.8-7.7 [facility] Comment on above: Performed By: #### C MP, CBC ####[address] Neutrophils/100 WBC (Bld) 69.8 % Normal . [facility] Comment on above: Performed By: #### C MP, CBC ####[address] NRBC% 0.1 /100{WBC} Normal 0-0.5 [facility] Comment on above: Performed By: #### C MP, CBC ####[address] Platelet mean volume (Bld) [Entitic vol] 8.4 fL Normal 6.6-10.1 [facility] Comment on above: Performed By: #### C MP, CBC ####[address] Platelets (Bld) [#/Vol] 196 10*3/uL Normal 150-450 [facility] Comment on above: Performed By: #### C MP, CBC ####[address] RBC (Bld) [#/Vol] 2.72 10*6/uL Low 3.90-5.60 [facility] Comment on above: Performed By: #### C MP, CBC ####[address] WBC (Bld) [#/Vol] 6.5 10*3/uL Normal 4.1-10.5 [facility] Comment on above: Performed By: #### C MP, CBC ####[address] [address] [facility] Comprehensive Metabolic Pane mana 04-08-2024 Albumin [Mass/Vol] 3.9 g/dL Normal 3.5-5.7 [facility] Comment on above: Performed By: #### C MP, CBC ####[address] [address] [facility] Albumin/Globulin [Mass ratio] 1.5 {ratio} Normal [facility] Comment on above: Performed By: #### C MP, CBC ####[address] [address] [facility] ALP [Catalytic activity/Vol] 94 U/L Normal 34-104 [facility] Comment on above: Performed By: #### C MP, CBC ####[place] [id number] [facility] ALT [Catalytic activity/Vol] 15 U/L Normal 7-52 [facility] Comment on above: Performed By: #### C MP, CBC ####[place] [id number] [facility] Anion gap [Moles/Vol] 11.0 mmol/L Normal 6.0-15.0 [facility] Comment on above: Performed By: #### C MP, CBC ####[place] [id number] [facility] AST [Catalytic activity/Vol] 18 U/L Normal 13-39 [facility] Comment on above: Performed By: #### C MP, CBC ####[place] [id number] [facility] Bilirubin [Mass/Vol] 0.4 mg/dL Normal 0.3-1.0 [facility] Comment on above: Performed By: #### C MP, CBC ####[address] [address] [facility] Calcium [Mass/Vol] 8.9 mg/dL Normal 8.6-10.3 [facility] Comment on above: Performed By: #### C MP, CBC ####[address] [place] [address] [place] Chloride [Moles/Vol] 109 mmol/L High 98-107 [facility] Comment on above: Performed By: #### C MP, CBC ####[address] CO2 [Moles/Vol] 22.7 mmol/L Normal 21.0-31.0 [facility] Comment on above: Performed By: #### C MP, CBC ####[address] Creatinine [Mass/Vol] 2.71 mg/dL High 0.70-1.30 [facility] Comment on above: Performed By: #### C MP, CBC ####[address] Creatinine Clr Calc Pharmacy 24.83 Normal [facility] Comment on above: Result Comment: PERF ORMED BY:[address] [place], [place] [phone] MEDICAL DIRECTORMEAGAN HARDING M.D. Performed By: #### C MP, CBC ####[address] GFR/1.73 sq M.predicted MDRD (S/P/Bld) [Vol rate/Area] 23.144 mL/min/{1.73_m2} Normal [facility] Comment on above: Performed By: #### C MP, CBC ####[address] Globulin (S) [Mass/Vol] 2.6 g/dL Normal T [facility] Comment on above: Performed By: #### C MP, CBC ####[address] Glucose [Mass/Vol] 103 mg/dL High 70-100 [facility] Comment on above: Result Comment: Ignacio Glucose Reference Range is dependent on time and content of last meal. Glucose of more than 200 mg/dL in a nonstressed, ambulatory subject supports the diagnosis of Diabetes Mellitus. ADA recommended reference range Performed By: #### C MP, CBC ####[facility] [place] [address] [facility] Potassium [Moles/Vol] 4.7 mmol/L Normal 3.5-5.1 [facility] Comment on above: Performed By: #### C MP, CBC ####[facility] [place] [address] [facility] Protein [Mass/Vol] 6.5 g/dL Normal 6.4-8.9 [facility] Comment on above: Performed By: #### C MP, CBC ####[id number] [place] [address] [facility] Sodium [Moles/Vol] 138 mmol/L Normal 136-145 [facility] Comment on above: Performed By: #### C MP, CBC ####[facility] [place] [id number] [facility] Urea nitrogen [Mass/Vol] 31 mg/dL High 7-25 [facility] Comment on above: Performed By: #### C MP, CBC ####[facility] [place] [id number] [facility] Comprehensive metabolic pane mana 04-08-2024 Albumin [Mass/Vol] 3.9 g/dL 3.5 - 5.7 g/dL [facility] Albumin/Globulin [Mass ratio] 1.5 {ratio} [facility] ALP [Catalytic activity/Vol] 94 U/L 34 - 104 U/L [facility] ALT [Catalytic activity/Vol] 15 U/L 7 - 52 U/L [facility] Anion gap [Moles/Vol] 11.0 mmol/L 6.0 - 15.0 [facility] AST [Catalytic activity/Vol] 18 U/L 13 - 39 U/L [facility] Bilirubin [Mass/Vol] 0.4 mg/dL 0.3 - 1 .0 mg/dL [facility] Calcium [Mass/Vol] 8.9 mg/dL 8.6 - 10. 3 mg/dL [facility] Chloride [Moles/Vol] 109 mmol/L High 98 - 10 7 mmol/L [facility] CO2 [Moles/Vol] 22.7 mmol/L 21.0 - 31.0 mmol/L [facility] Creatinine (U) [Mass/Vol] 2.71 mg/dL High 0.70 - 1.30 mg/dL [facility] CREATININE CLR CALC PHARMACY 24.83 [facility] GFR/1.73 sq M.predicted MDRD (S/P/Bld) [Vol rate/Area] 23.144 mL/min/{1.73_m2} [facility] Globulin (S) [Mass/Vol] 2.6 g/dL N [facility] Glucose [Mass/Vol] 103 mg/dL High 70 - 100 mg/dL [facility] Comment on above: Random Glucose Refer ence Range is dependent on time and content of last meal. Glucose of more than 200 mg/dL in a nonstressed, ambulatory subject supports the diagnosis of Diabetes Mellitus. ADA recommended reference range Interpretation and review of laboratory results Abnormal [facility] Potassium [Moles/Vol] 4.7 mmol/L 3.5 - 5.1 mmol/L [facility] Protein [Mass/Vol] 6.5 g/dL 6.4 - 8.9 g/dL [facility] Sodium [Moles/Vol] 138 mmol/L 136 - 145 mmol/L [facility] Urea nitrogen [Mass/Vol] 31 mg/dL High 7 - 25 mg/dL [facility] C Urineon 03-18-2024 Bacteria identified Cx [facility] (U) Microbiology PROCEDURE: Urine Culture [R1] SOURCE: U Suprapubic BODY SITE: COLLECTED DATE/TIME: 03/15/2024 14:58 EDT RECEIVED DATE/TIME: 03/15/2024 18:05 EDT START DATE/TIME: 03/15/2024 18:05 EDT FREE TEXT SOURCE: suprapubic per chart [place] HAND DEICER ELEMENT WINDER, BRANCH SALES MANAGER-C, [place] HAND DEICER ELEMENT WINDER, BRANCH SALES MANAGER-C, Makayla X Makayla X FINAL REPORTS Final Report [] Verified Date/Time: 03/18/2024 13:04 EDT 50,000 cfu/ml Staphylococcus epidermidis 15,000 cfu/ml Stenotrophomonas maltophilia SUSCEPTIBILITY RESULTS _ LEGEND: S=Susceptible, N/R=Not Reported, Blank=Data not available, or drug not advisable or tested, I=Intermediate, ESBL=Extended spectrum beta-lactamase, R=Resistant, TFG=Thymidine-dependent strain, RADHA=Beta-lactamase positive, DEEPA=mcg/m;(mg/L), S*=Predicted susceptible interp, R*=Predicted resistant interp Staepi Stemal Antibiotic DEEPA Dilutn DEEPA Interp DEEPA Dilutn DEEPA Interp Amoxicillin/ <=4/2 R Clavulanate Ampicillin 8 R Ampicillin/ <=8/4 R Sulbactam Cefazolin <=8 R Ciprofloxacin >2 R Daptomycin <=1 S Gentamicin >8 R Levofloxacin >4 R Linezolid <=2 S Nitrofurantoin <=32 S Oxacillin >2 R Penicillin 8 R Rifampin <=1 S Tetracycline >8 R Trimethoprim/ >2/38 R <=2/38 S Sulfa Vancomycin 1 S Performing Locations R1: This test was performed at: [facility], [address] [place] [address], [phone] [phone] [place], [facility] Comment on above: Performed By: #### 2 [id number] #### [facility] [address] [place] [id number] Alanine aminotransferase [En zymatic activity/volume] in Serum or PlasmaOrdered By: Brook Huddleston on 02-29-2024 ALT [Catalytic activity/Vol] 13 U/L 7 [facility] Albumin [Mass/volume] in Ser um or Plasma by Bromocresol green (BCG) dye binding methoOrdered By: Price Crain on 02-29-2024 Albumin BCG dye [Mass/Vol] 3.8 g/dL 3.5-5.7 [facility] Albumin [Mass/volume] in Ser um or Plasma by Bromocresol green (BCG) dye binding methoOrdered By: Brook Huddleston on 02-29-2024 Albumin BCG dye [Mass/Vol] 3.9 g/dL 3.5-5.7 [facility] Alkaline phosphatase [Enzyma tic activity/volume] in Serum or PlasmaOrdered By: Brook Huddleston on 02-29-2024 ALP [Catalytic activity/Vol] 90 U/L 34-104 [facility] Aspartate aminotransferase [ Enzymatic activity/volume] in Serum or PlasmaOrdered By: Brook Huddleston on 02-29-2024 AST [Catalytic activity/Vol] 16 U/L 13-39 [facility] Basophils Auto (Bld) [#/Vol] Ordered By: Brook Huddleston on 02-29-2024 Basophils (Bld) [#/Vol] 0.0 10*3/uL 0.0-0.2 [facility] Basophils/100 WBC Auto (Bld) Ordered By: Brook Huddleston on 02-29-2024 Basophils/100 WBC (Bld) 0.4 % . [facility] Bilirubin.total [Mass/volume ] in Serum or PlasmaOrdered By: Brook Huddleston on 02-29-2024 Bilirubin [Mass/Vol] 0.5 mg/dL 0.3-1.0 [facility] Calcium [Mass/volume] in Ser um or PlasmaOrdered By: Price Crain on 02-29-2024 Calcium [Mass/Vol] 9.1 mg/dL 8.6-10.3 [facility] Calcium [Mass/volume] in Ser um or PlasmaOrdered By: Brook Huddleston on 02-29-2024 Calcium [Mass/Vol] 9.5 mg/dL 8.6-10.3 [facility] Carbon dioxide, total [Moles /volume] in Serum or PlasmaOrdered By: Price Crain on 02-29-2024 CO2 [Moles/Vol] 25.1 mmol/L 21.0-31.0 [facility] Carbon dioxide, total [Moles /volume] in Serum or PlasmaOrdered By: Brook Huddleston on 02-29-2024 CO2 [Moles/Vol] 26.4 mmol/L 21.0-31.0 [facility] Chloride [Moles/volume] in S valeria or PlasmaOrdered By: Price Crain on 02-29-2024 Chloride [Moles/Vol] 108 mmol/L High 98-107 [facility] Chloride [Moles/volume] in S valeria or PlasmaOrdered By: Brook Huddleston on 02-29-2024 Chloride [Moles/Vol] 108 mmol/L High 98-107 [facility] Creatinine [Mass/volume] in Serum or PlasmaOrdered By: Price Crain on 02-29-2024 Creatinine [Mass/Vol] 2.29 mg/dL High 0.70-1.30 [facility] Creatinine [Mass/volume] in Serum or PlasmaOrdered By: Brook Huddleston on 02-29-2024 Creatinine [Mass/Vol] 2.28 mg/dL High 0.70-1.30 [facility] Creatinine [Mass/volume] in UrineOrdered By: Price Crain on 02-29-2024 Creatinine (U) [Mass/Vol] 120.00 mg/dL [facility] Comment on above: No reference range e stablished Eosinophils Auto (Bld) [#/Vo l]Ordered By: Brook Huddleston on 02-29-2024 Eosinophils (Bld) [#/Vol] 0.5 10*3/uL High 0.0-0.45 [facility] Eosinophils/100 WBC Auto (Bl d)Ordered By: Brook Huddleston on 02-29-2024 Eosinophils/100 WBC (Bld) 7.3 % . [facility] Erythrocyte distribution wid th Auto (RBC) [Ratio]Ordered By: Brook Huddleston on 02-29-2024 Erythrocyte distribution width (RBC) [Ratio] 16.5 % High 12.0-14.8 [facility] Globulin Calc (S) [Mass/Vol] Ordered By: Brook Huddleston on 02-29-2024 Globulin (S) [Mass/Vol] 2.5 g/dL F [facility] Glucose [Mass/volume] in Ser um or PlasmaOrdered By: Price Crain on 02-29-2024 Glucose [Mass/Vol] 92 mg/dL 70-100 [facility] Comment on above: ADA recommended refe rence rangeRandom Glucose Reference Range is dependent on time and content of last meal. Glucose of more than 200 mg/dL in a nonstressed, ambulatory subject supports the diagnosis of Diabetes Mellitus. Glucose [Mass/volume] in Ser um or PlasmaOrdered By: Brook Huddleston on 02-29-2024 Glucose [Mass/Vol] 95 mg/dL 70-100 [facility] Comment on above: ADA recommended refe rence rangeRandom Glucose Reference Range is dependent on time and content of last meal. Glucose of more than 200 mg/dL in a nonstressed, ambulatory subject supports the diagnosis of Diabetes Mellitus. Hematocrit Auto (Bld) [Volum e fraction]Ordered By: Brook Huddleston on 02-29-2024 Hematocrit (Bld) [Volume fraction] 28.0 % Low 38.8-50.0 [facility] Hemoglobin [Mass/volume] in BloodOrdered By: Brook Huddleston on 02-29-2024 Hemoglobin (Bld) [Mass/Vol] 9.5 g/dL Low 13.0-17.0 [facility] Leukocytes [#/volume] correc lizbet for nucleated erythrocytes in Blood by Automated counOrdered By: Brook Huddleston on 02-29-2024 WBC corrected for nucl RBC Auto (Bld) [#/Vol] 7.2 10*3/uL 4.1-10.5 [facility] Lymphocytes Auto (Bld) [#/Vo l]Ordered By: Brook Huddleston on 02-29-2024 Lymphocytes (Bld) [#/Vol] 1.3 10*3/uL 1.00-4.8 [facility] Lymphocytes/100 WBC Auto (Bl d)Ordered By: Brook Hudldeston on 02-29-2024 Lymphocytes/100 WBC (Bld) 18.2 % . [facility] MCH Auto (RBC) [Entitic mass ]Ordered By: Brook Huddleston on 02-29-2024 MCH (RBC) [Entitic mass] 36.4 pg High 27.5-35.2 [facility] MCHC Auto (RBC) [Mass/Vol]Or dered By: Brook Huddleston on 02-29-2024 MCHC (RBC) [Mass/Vol] 34.1 g/dL 32.5-35.6 [facility] MCV Auto (RBC) [Entitic vol] Ordered By: Brook Huddleston on 02-29-2024 MCV (RBC) [Entitic vol] 106.8 fL High 83.5-101 [facility] Magnesium [Mass/volume] in S valeria or PlasmaOrdered By: Price Crain on 02-29-2024 Magnesium [Mass/Vol] 2.0 mg/dL 1.9-2.7 [facility] Microalbumin [Mass/volume] i n UrineOrdered By: Price Crain on 02-29-2024 Albumin DL <= 20 mg/L (U) [Mass/Vol] mg/dL High 0.0-1.8 [facility] Monocytes Auto (Bld) [#/Vol] Ordered By: Brook Huddleston on 02-29-2024 Monocytes (Bld) [#/Vol] 0.5 10*3/uL 0.0-0.8 [facility] Monocytes/100 WBC Auto (Bld) Ordered By: Brook Huddleston on 02-29-2024 Monocytes/100 WBC (Bld) 7.2 % . [facility] Neutrophils Auto (Bld) [#/Vo l]Ordered By: Brook Huddleston on 02-29-2024 Neutrophils (Bld) [#/Vol] 4.8 10*3/uL 1.8-7.7 [facility] Neutrophils/100 WBC Auto (Bl d)Ordered By: Brook Huddleston on 02-29-2024 Neutrophils/100 WBC (Bld) 66.9 % . [facility] No Panel InformationOrdered By: Price Crain on 02-29-2024 Estimated GFR (CKD-EPI) 28.327 mL/Min [facility] Creatinine Clearance (Chem N/A [facility] No Panel InformationOrdered By: Brook Huddleston on 02-29-2024 Estimated GFR (CKD-EPI) 28.476 mL/Min [facility] Creatinine Clearance (Chem 29.52 [facility] Nucleated erythrocytes [Pres ence] in Blood by Automated countOrdered By: Brook Huddleston on 02-29-2024 Nucleated RBC Auto Ql (Bld) 0.0 /100{WBC} 0-0.5 [facility] Phosphate [Mass/volume] in S valeria or PlasmaOrdered By: Price Crain on 02-29-2024 Phosphate [Mass/Vol] 3.2 mg/dL 2.5-4.5 [facility] Platelet mean volume Auto (B ld) [Entitic vol]Ordered By: Brook Huddleston on 02-29-2024 Platelet mean volume (Bld) [Entitic vol] 7.7 fL 6.6-10.1 [facility] Platelets Auto (Bld) [#/Vol] Ordered By: Brook Huddleston on 02-29-2024 Platelets (Bld) [#/Vol] 171 10*3/uL 150-450 [facility] Potassium [Moles/volume] in Serum or PlasmaOrdered By: Price Crain on 02-29-2024 Potassium [Moles/Vol] 4.7 mmol/L 3.5-5.1 [facility] Potassium [Moles/volume] in Serum or PlasmaOrdered By: Brook Huddleston on 02-29-2024 Potassium [Moles/Vol] 4.6 mmol/L 3.5-5.1 [facility] Prostate specific Ag [Mass/v olume] in Serum or PlasmaOrdered By: Helen Heath on 02-29-2024 Prostate specific Ag [Mass/Vol] 0.840 ng/mL 0.000-4.00 0 [facility] Comment on above: Serial tumor marker results determined by assays using different manufacturers or methods may not be comparable.[facility] 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 Protein [Mass/volume] in Ser um or PlasmaOrdered By: Brook Huddleston on 02-29-2024 Protein [Mass/Vol] 6.4 g/dL 6.4-8.9 [facility] Protein [Mass/volume] in Uri neOrdered By: Price Crain on 02-29-2024 Protein (U) [Mass/Vol] 148 mg/dL High 0-9 [facility] RBC Auto (Bld) [#/Vol]Ordere d By: Brook Huddleston on 02-29-2024 RBC (Bld) [#/Vol] 2.62 10*6/uL Low 3.90-5.60 [facility] Serum or plasma albumin/glob ulin mass ratioOrdered By: Brook Huddleston on 02-29-2024 Albumin/Globulin [Mass ratio] 1.6 {ratio} [facility] Serum or plasma anion gap de terminationOrdered By: Price Crain on 02-29-2024 Anion gap [Moles/Vol] 9.6 mmol/L 6.0-15.0 [facility] Serum or plasma anion gap de terminationOrdered By: Brook Huddleston on 02-29-2024 Anion gap [Moles/Vol] 7.2 mmol/L 6.0-15.0 [facility] Sodium [Moles/volume] in Ser um or PlasmaOrdered By: Price Crain on 02-29-2024 Sodium [Moles/Vol] 138 mmol/L 136-145 [facility] Sodium [Moles/volume] in Ser um or PlasmaOrdered By: Brook Huddleston on 02-29-2024 Sodium [Moles/Vol] 137 mmol/L 136-145 [facility] Urate [Mass/volume] in Serum or PlasmaOrdered By: Price Fords on 02-29-2024 Urate [Mass/Vol] 5.1 mg/dL 4.4-7.6 [facility] Urea nitrogen [Mass/volume] in Serum or PlasmaOrdered By: Price Crain on 02-29-2024 Urea nitrogen [Mass/Vol] 27 mg/dL High 7-25 [facility] Urea nitrogen [Mass/volume] in Serum or PlasmaOrdered By: Brook Huddleston on 02-29-2024 Urea nitrogen [Mass/Vol] 27 mg/dL High 7-25 [facility] Urine microalbumin/creatinin e mass ratioOrdered By: Price Crain on 02-29-2024 Albumin/Creatinine DL <= 20 mg/L (U) [Mass ratio] TNP [facility] Comment on above: Test not performed Urine protein/creatinine rat ioOrdered By: Price Crain on 02-29-2024 Protein/Creatinine (U) [Ratio] 1233 mg/g{Cre} High 0-200 [facility] Vitamin D+Metabolites [Mass/ volume] in Serum or PlasmaOrdered By: Price Crain on 02-29-2024 Vitamin D+Metabolites [Mass/Vol] 66.8 ng/mL 30-100 [facility] Comment on above: VITAMIN D STATUS 25( [place])VITAMIN D RANGE (ng/mL) Deficient <20 Insufficient 20 to <30Sufficient 30 to 100Reference: Dieudonne MF,Brendon GUERRA, Estrella CARTER, et al. Evaluation,treatment, and prevention of vitamin D deficiency; an Endocrine Society clinical practice guideline. JCEM. 2010; 96(7):1911-30. WBC Auto (Bld) [#/Vol]Ordere d By: Brook Huddleston on 02-29-2024 WBC (Bld) [#/Vol] 7.2 10*3/uL 4.1-10.5 [facility] Creatinine (Bld) [Mass/Vol]O rdered By: Orquidea Cortez on 02-25-2024 Creatinine [Mass/Vol] 2.5 mg/dL High 0.6-1.3 [facility] Comment on above: ER/ESD physician is notified/shown all ISTAT results.Critical values may be confirmed by laboratory testing ifdeemed necessary by ER attending doctor. No Panel InformationOrdered By: Orquidea Cortez on 02-25-2024 Bedside Estimated GFR (eGFR) 25.496 [facility] Ambulatory Visit Summaryon 0 02-24-2024 Ambulatory Visit Summary Ambulatory Visit Summary GENE PATSY G :1945 Visit Date:02/24/2024 Ambulatory Visit Instructions Your Care Team Attending Physician - Diego RICKS, Orquidea Taylor Primary Care Physician - DON RICKS, HELEN This Is Your Medications List aspirin (aspirin 81 mg Chew Tab) atorvastatin (atorvastatin 20 mg Tab) bifidobacterium-lactobacil huber (Probiotic + Colostrum) cefdinir (cefdinir 300 mg Cap) cholecalciferol (Vitamin D3 2000 intl units) cyanocobalamin (Vitamin B-12 100 mcg oral tablet) famotidine (famotidine 20 mg Tab) insulin glargine (Lantus insulin) insulin lispro (Humalog) losartan (losartan 25 mg Tab) metformin (metformin 500 mg Tab) multivitamin with iron (Gentle Iron oral capsule) multivitamin with minerals (One A Day Men's Complete oral tablet) nitrofurantoin (Macrobid 100 mg Cap) oxybutynin (oxybutynin 10 mg ER Tab) Procedures Performed Cystoscopic replacement of [...] to do next Scheduled Follow-Up Appointments Thursday 2:30 PM EDT With: CARLEY Damian APRN, [place] Where: [facility] Operative Reporton Operative Report [id number]#1.00TIFF [facility] RAD - MISCon 02-05-2024 RAD - MIS [id number]#1.00TIFF [facility] Alanine aminotransferase [En zymatic activity/volume] in Serum or PlasmaOrdered By: Brook Huddleston on 2024 ALT [Catalytic activity/Vol] 20 U/L 7- [facility] Albumin [Mass/volume] in Ser um or PlasmaOrdered By: Brook Huddleston on 2024 Albumin [Mass/Vol] 3.2 g/dL 2.9-4.4 [facility] Albumin [Mass/volume] in Ser um or Plasma by Bromocresol green (BCG) dye binding methoOrdered By: Brook Huddleston on 2024 Albumin BCG dye [Mass/Vol] 3.6 g/dL 3.5-5.7 [facility] Albumin/Protein.total in 24 hour Urine by ElectrophoresisOrdered By: Brook Huddleston on 2024 Albumin Elph (24H U) [Mass fraction] 42.1 % . [facility] Alkaline phosphatase [Enzyma tic activity/volume] in Serum or PlasmaOrdered By: Brook Huddleston on 2024 ALP [Catalytic activity/Vol] 101 U/L 34-104 [facility] Aspartate aminotransferase [ Enzymatic activity/volume] in Serum or PlasmaOrdered By: Brook Huddleston on 2024 AST [Catalytic activity/Vol] 22 U/L 13-39 [facility] Basophils Auto (Bld) [#/Vol] Ordered By: Brook Huddleston on 2024 Basophils (Bld) [#/Vol] 0.0 10*3/uL 0.0-0.2 [facility] Basophils/100 WBC Auto (Bld) Ordered By: Brook Huddleston on 2024 Basophils/100 WBC (Bld) 0.1 % . [facility] Bilirubin.total [Mass/volume ] in Serum or PlasmaOrdered By: Brook Huddleston on 2024 Bilirubin [Mass/Vol] 0.5 mg/dL 0.3-1.0 [facility] Calcium [Mass/volume] in Ser um or PlasmaOrdered By: Brook Huddleston on 2024 Calcium [Mass/Vol] 8.5 mg/dL Low 8.6-10.3 [facility] Carbon dioxide, total [Moles /volume] in Serum or PlasmaOrdered By: Brook Huddleston on 2024 CO2 [Moles/Vol] 21.8 mmol/L 21.0-31.0 [facility] Chloride [Moles/volume] in S valeria or PlasmaOrdered By: Brook Huddleston on 2024 Chloride [Moles/Vol] 107 mmol/L 98-107 [facility] Creatinine [Mass/volume] in Serum or PlasmaOrdered By: Brook Huddleston on 2024 Creatinine [Mass/Vol] 2.82 mg/dL High 0.70-1.30 [facility] Eosinophils Auto (Bld) [#/Vo l]Ordered By: Brook Huddleston on 2024 Eosinophils (Bld) [#/Vol] 0.2 10*3/uL 0.0-0.45 [facility] Eosinophils/100 WBC Auto (Bl d)Ordered By: Brook Huddleston on 2024 Eosinophils/100 WBC (Bld) 1.3 % . [facility] Erythrocyte distribution wid th Auto (RBC) [Ratio]Ordered By: Brook Huddleston on 2024 Erythrocyte distribution width (RBC) [Ratio] 16.6 % High 12.0-14.8 [facility] Gamma globulin/Protein.total in 24 hour Urine by ElectrophoresisOrdered By: Brook Huddleston on 2024 Gamma globulin Elph (24H U) [Mass fraction] 22.0 % . [facility] Globulin Calc (S) [Mass/Vol] Ordered By: Brook Huddleston on 2024 Globulin (S) [Mass/Vol] 2.6 g/dL F [facility] Glucose [Mass/volume] in Ser um or PlasmaOrdered By: Brook Huddleston on 2024 Glucose [Mass/Vol] 220 mg/dL High 70-100 [facility] Comment on above: ADA recommended refe rence rangeRandom Glucose Reference Range is dependent on time and content of last meal. Glucose of more than 200 mg/dL in a nonstressed, ambulatory subject supports the diagnosis of Diabetes Mellitus. Hematocrit Auto (Bld) [Volum e fraction]Ordered By: Brook Huddleston on 2024 Hematocrit (Bld) [Volume fraction] 25.2 % Low 38.8-50.0 [facility] Hemoglobin [Mass/volume] in BloodOrdered By: Brook Huddleston on 2024 Hemoglobin (Bld) [Mass/Vol] 8.3 g/dL Low 13.0-17.0 [facility] IgA [Mass/volume] in Serum o r PlasmaOrdered By: Brook Huddleston on 2024 IgA [Mass/Vol] 220 mg/dL 61-437 [facility] IgG [Mass/volume] in Serum o r PlasmaOrdered By: Brook Huddleston on 2024 IgG [Mass/Vol] 1130 mg/dL 603-1613 [facility] IgM [Mass/volume] in Serum o r PlasmaOrdered By: Brook Huddleston on 2024 IgM [Mass/Vol] 61 mg/dL 15-143 [facility] Comment on above: Performed at: [employer] [place], [place] [id number] Director: Melchor Agrawal PhD, Phone: [phone] Immunofixation for UrineOrde red By: Brook Huddleston on 2024 Interpretation Immunofixation (U) [Interp] Comment: . [facility] Comment on above: Presence of monoclon al protein is unclear at this time. Suggestrepeat in 3 to 6 months if clinically indicated.Performed at: [id number] [place] [id number] Director: Melchor Agrawal PhD, Phone: [phone] Immunoglobulin light chains. kappa.free [Mass/volume] in SerumOrdered By: Brook Huddleston on 2024 Immunoglobulin light chains.kappa.free (S) [Mass/Vol] 55.9 mg/L High 3.3-19.4 [facility] Immunoglobulin light chains. kappa.free/Immunoglobulin light chains.lambda.free [MassOrdered By: Brook Huddleston on 2024 Immunoglobulin light chains.kappa.free/Immun oglobulin light chains.lambda.free (S) [Mass ratio] 1.53 0.26-1.65 [facility] Comment on above: Performed at: [facility] [place] [id number] Director: Melchor Agrawal PhD, Phone: [phone] Immunoglobulin light chains. lambda.free [Mass/volume] in Serum or PlasmaOrdered By: Brook Huddleston on 2024 Immunoglobulin light chains.lambda.free [Mass/Vol] 36.6 mg/L High 5.7-26.3 [facility] Lab Reportson 2024 Lab Reports [id number] Normal [facility] Lab Reports [id number] Normal [facility] Lactate dehydrogenase [Enzym atic activity/volume] in Serum or Plasma by Lactate to pyOrdered By: Brook Huddleston on 2024 LDH Lactate to pyruvate reaction [Catalytic activity/Vol] 157 U/L 140-271 [facility] Leukocytes [#/volume] correc lizbet for nucleated erythrocytes in Blood by Automated counOrdered By: Brook Huddleston on 2024 WBC corrected for nucl RBC Auto (Bld) [#/Vol] 12.2 10*3/uL High 4.1-10.5 [facility] Lymphocytes Auto (Bld) [#/Vo l]Ordered By: Brook Huddleston on 2024 Lymphocytes (Bld) [#/Vol] 0.5 10*3/uL Low 1.00-4.8 [facility] Lymphocytes/100 WBC Auto (Bl d)Ordered By: Brook Huddleston on 2024 Lymphocytes/100 WBC (Bld) 4.1 % . [facility] MCH Auto (RBC) [Entitic mass ]Ordered By: Brook Huddleston on 2024 MCH (RBC) [Entitic mass] 35.9 pg High 27.5-35.2 [facility] MCHC Auto (RBC) [Mass/Vol]Or dered By: Brook Huddleston on 2024 MCHC (RBC) [Mass/Vol] 33.1 g/dL 32.5-35.6 [facility] MCV Auto (RBC) [Entitic vol] Ordered By: Brook Huddleston on 2024 MCV (RBC) [Entitic vol] 108.4 fL High 83.5-101 F [facility] Monocytes Auto (Bld) [#/Vol] Ordered By: Brook Huddleston on 2024 Monocytes (Bld) [#/Vol] 0.6 10*3/uL 0.0-0.8 [facility] Monocytes/100 WBC Auto (Bld) Ordered By: Brook Huddleston on 2024 Monocytes/100 WBC (Bld) 5.0 % . F [facility] Neutrophils Auto (Bld) [#/Vo l]Ordered By: Brook Huddleston on 2024 Neutrophils (Bld) [#/Vol] 11.0 10*3/uL High 1.8-7.7 [facility] Neutrophils/100 WBC Auto (Bl d)Ordered By: Brook Huddleston on 2024 Neutrophils/100 WBC (Bld) 89.5 % . [facility] No Panel InformationOrdered By: Brook Huddleston on 2024 Estimated GFR (CKD-EPI) 22.203 mL/Min [facility] Creatinine Clearance (Chem 24.26 [facility] Protein Electrophoresis M-Anselmo Not observed g/dL Not Observed [facility] Protein Electrophoresis Note See comment . [facility] Comment on above: Protein electrophore sis scan will follow via computer,mail, or revenue stamp cutter delivery.Performed at: [facility] [id number] Director: Melchor Agrawal PhD, Phone: [phone] Urine Random Prot Electrophor Note See comment . [facility] Comment on above: Protein electrophore sis scan will follow via computer,mail, or revenue stamp cutter delivery.Performed at: [facility] [id number] Director: Melchor Agrawal PhD, Phone: [phone] Nucleated erythrocytes [Pres ence] in Blood by Automated countOrdered By: Brook Huddleston on 2024 Nucleated RBC Auto Ql (Bld) 0.0 /100{WBC} 0-0.5 [facility] Operative Reporton 4 Operative Report [id number] Normal [facility] Platelet mean volume Auto (B ld) [Entitic vol]Ordered By: Brook Huddleston on 2024 Platelet mean volume (Bld) [Entitic vol] 7.5 fL 6.6-10.1 [facility] Platelets Auto (Bld) [#/Vol] Ordered By: Brook Huddleston on 2024 Platelets (Bld) [#/Vol] 196 10*3/uL 150-450 [facility] Potassium [Moles/volume] in Serum or PlasmaOrdered By: Brook Huddleston on 2024 Potassium [Moles/Vol] 4.6 mmol/L 3.5-5.1 [facility] Protein [Mass/volume] in Ser um or PlasmaOrdered By: Brook Huddleston on 2024 Protein [Mass/Vol] 6.2 g/dL Low 6.4-8.9 [facility] Protein [Mass/Vol] 6.4 g/dL 6.0-8.5 [facility] Protein [Mass/volume] in Uri neOrdered By: Brook Huddleston on 2024 Protein (U) [Mass/Vol] 289.2 mg/dL Not Estab. F [facility] Comment on above: Results confirmed on dilution. Protein.monoclonal/Protein.t otal in 24 hour Urine by ElectrophoresisOrdered By: Brook Huddleston on 2024 Protein.monoclonal Elph (24H U) [Mass fraction] Comment: % Not Observed [facility] Comment on above: UPE shows asymmetric al gamma. RBC Auto (Bld) [#/Vol]Ordere d By: Brook Huddleston on 2024 RBC (Bld) [#/Vol] 2.33 10*6/uL Low 3.90-5.60 [facility] Serum globulin measurement ( mass/volume)Ordered By: Brook Huddleston on 2024 Globulin (S) [Mass/Vol] 3.2 g/dL 2.2-3.[address] [facility] Serum or plasma albumin/glob ulin mass ratioOrdered By: Brook Huddleston on 2024 Albumin/Globulin [Mass ratio] 1.4 {ratio} [facility] Albumin/Globulin [Mass ratio] 1.0 {ratio} 0.7-1.7 [facility] Serum or plasma alpha 1 glob ulin measurement by electrophoresis (mass/volume)Ordered By: Brook Huddleston on 2024 Alpha 1 globulin Elph [Mass/Vol] 0.4 g/dL 0.0-0.4 [facility] Serum or plasma alpha 2 glob ulin measurement by electrophoresis (mass/volume)Ordered By: Brook Huddleston on 2024 Alpha 2 globulin Elph [Mass/Vol] 0.9 g/dL 0.4-1.0 [facility] Serum or plasma anion gap de terminationOrdered By: Brook Huddleston on 2024 Anion gap [Moles/Vol] 11.8 mmol/L 6.0-15.0 [facility] Serum or plasma beta globuli n measurement by electrophoresis (mass/volume)Ordered By: Brook Huddleston on 2024 Beta globulin Elph [Mass/Vol] 0.8 g/dL 0.7-1.3 [facility] Serum or plasma gamma globul in measurement by electrophoresis (mass/volume)Ordered By: Brook Huddleston on 2024 Gamma globulin Elph [Mass/Vol] 1.0 g/dL 0.4-1.8 [facility] Serum or plasma homocysteine measurement (moles/volume)Ordered By: Brook Huddleston on 2024 Homocysteine [Moles/Vol] 10.3 umol/L 0.0-19.2 [facility] Comment on above: Performed at: [facility] [place] [address] [id number] Director: Melchor Agrawal PhD, Phone: [phone] Homocysteine [Moles/Vol] Serum or plasma homocysteine measurement (moles/volume) 0.0-19.2 [facility] Comment on above: Performed at: [facility] [place] [address] [id number] Director: Melchor Agrawal PhD, Phone: [phone] Serum or plasma methylmalona te measurement (moles/volume)Ordered By: Brook Huddleston on 2024 Methylmalonate [Moles/Vol] 347 nmol/L 0-378 [facility] Comment on above: This test was develo ped and its performance characteristicsdetermined by [employer]. It has not been cleared orapproved by the Food and Drug Administration.Performed at: [address] [id number] Director: Aliya Curtis MD, Phone: [phone] Methylmalonate [Moles/Vol] Serum or plasma methylmalonate measurement (moles/volume) 0-378 [facility] Comment on above: This test was develo ped and its performance characteristicsdetermined by [employer]. It has not been cleared orapproved by the Food and Drug Administration.Performed at: [address] [id number] Director: Aliya Curtis MD, Phone: [phone] Sodium [Moles/volume] in Ser um or PlasmaOrdered By: Brook Huddleston on 2024 Sodium [Moles/Vol] 136 mmol/L 136-145 [facility] Urea nitrogen [Mass/volume] in Serum or PlasmaOrdered By: Brook Huddleston on 2024 Urea nitrogen [Mass/Vol] 36 mg/dL High 7-25 [facility] Urine alpha 1 globulin/total protein by electrophoresisOrdered By: Brook Huddleston on 2024 Alpha 1 globulin Elph (U) [Mass fraction] 6.0 % . [facility] Urine alpha 2 globulin/total protein ratio by electrophoresisOrdered By: Brook Huddleston on 2024 Alpha 2 globulin Elph (U) [Mass fraction] 13.5 % . [facility] Urine beta globulin measurem ent by electrophoresis (mass/volume)Ordered By: Brook Huddleston on 2024 Beta globulin Elph (U) [Mass/Vol] 16.4 % . [facility] WBC Auto (Bld) [#/Vol]Ordere d By: Brook Huddleston on 2024 WBC (Bld) [#/Vol] 12.2 10*3/uL High 4.1-10.5 [facility] Lab Reportson 02-03-2024 Lab Reports [id number] [facility] Consent for Procedure/Surger yon 02-02-2024 Consent for Procedure/Surgery [id number]#[id number] [facility] Consent for Procedure/Surgery [id number] [facility] Lab Reportson 02-02-2024 Lab Reports [id number]#[id number] [facility] Lab Reports [id number]#[id number] [facility] Ambulatory Visit Summaryon 0 01-28-2024 Ambulatory Visit Summary PATSY CUNNINGHAM :1945 Visit Date:01/28/2024 Ambulatory Visit Instructions Your Diagnosis Noncompliant bladder OAB (overactive bladder) Recurrent UTI Hydroureteronephrosis Ureteral stricture Prostate cancer Incomplete bladder emptying Family history of prostate cancer in father Kidney stones BPH with urinary obstruction Tests Performed MRI Pelvis (Soft Tissue) w/ + w/o contrast -- Results Pending -- Please visit your patient portal for your results or contact your primary care physician. Your Care Team Attending Physician - Diego RICKS, Orquidea Taylor Primary Care Physician - HELEN HEATH MD This Is Your Medications List Contact prescribing physician if questions or concerns aspirin (aspirin 81 mg Chew Tab) atorvastatin (atorvastatin 20 mg Tab) bifidobacterium-lactobacil huber (Probiotic + Colostrum) cefdinir (cefdinir 300 mg Cap) cholecalciferol (Vitamin D3 2000 intl units) cyanocobalamin (Vitamin B-12 100 mcg oral tablet) famotidine (famotidine 20 mg Tab) insulin glargine (Lantus insulin) insulin lispro (Humalog) losartan (losartan 25 mg Tab) metformin (metformin 500 mg Tab) multivitamin with iron (Gentle Iron oral capsule) multivitamin with minerals (One A Day Men's Complete oral tablet) nitrofurantoin (Macrobid 100 mg Cap) oxybutynin (oxybutynin 10 mg ER Tab) Procedures Performed Cystoscopic replacement of [...] of kidney (03/02/2009), heel spur. Discharge Vitals Temperature (Temporal Artery) 37 ?C Heart Rate (Peripheral) 68 Respiratory Rate 16 Blood Pressure 132/67 Height 171 cm Height 67 in Weight 94 kg Weight 206.8 lb BMI 32.15 What to do next You Need to Schedule the Following Appointments Follow Up with Diego RICKS, Orquidea Taylor, [place], URO When: Where: Medications What How Much When Instructions Unchanged aspirin (aspirin 81 mg Chew Tab) Chewed Every day Contact prescribing physician if questions or concerns Unchanged atorvastatin (atorvastatin 20 mg Tab) 1 Tablets By Mouth Every day Contact prescribing physician if questions or concerns Unchanged bifidobacterium-lactobacil huber (Probiotic + Colostrum) By Mouth Every day Contact prescribing physician if questions or concerns Unchanged cefdinir (cefdinir 300 mg Cap) Contact prescribing physician if questions or concerns Unchanged cholecalciferol (Vitamin D3 2000 intl units) By Mouth Every day Contact prescribing physician if questions or concerns Unchanged cyanocobalamin (Vitamin B-12 100 mcg oral tablet) By Mouth Every day Contact prescribing physician [...] prescribing physician if questions or concerns Unchanged losartan (losartan 25 mg Tab) By Mouth Every day Contact prescribing physician if questions or concerns Unchanged metformin (metformin 500 mg Tab) 1 Tablets By Mouth 2 times a day Contact prescribing physician if questions or concerns Unchanged multivitamin with iron (Gentle Iron oral capsule) 1 Capsules By Mouth Every day Contact prescribing physician if questions or concerns Unchanged multivitamin with minerals (One A Day Men's Complete oral tablet) By Mouth Every day Contact prescribing physician if questions or concerns Unchanged nitrofurantoin (Macrobid 100 mg Cap) 1 Capsules By Mouth 2 times a day take 1 cap morning of cath change and 12hrs after Contact prescribing physician if questions or concerns Unchanged oxybutynin (oxybutynin 10 mg ER Tab) [...] (hypertension) Hydroureter Hydroureteronephrosis Incomplete bladder emptying Kidney stones Microhematuria Nocturia Noncompliant bladder OAB (overactive bladder) Prostate cancer Recurrent UTI Rheumatoid arthritis Ureteral stricture (more content not included)... Normal [facility] Ambulatory Visit Summary PATSY CUNNINGHAM :1945 Visit Date:01/28/2024 Ambulatory Visit Instructions Your Diagnosis Noncompliant bladder OAB (overactive bladder) Recurrent UTI Hydroureteronephrosis Ureteral stricture Prostate cancer Incomplete bladder emptying Family history of prostate cancer in father Kidney stones BPH with urinary obstruction Tests Performed MRI Pelvis (Soft Tissue) w/ + w/o contrast -- Results Pending -- Please visit your patient portal for your results or contact your primary care physician. Your Care Team Attending Physician - Orquidea Cortez MD Primary Care Physician - HELEN HEATH MD This Is Your Medications List Contact prescribing physician if questions or concerns aspirin (aspirin 81 mg Chew Tab) atorvastatin (atorvastatin 20 mg Tab) bifidobacterium-lactobacil huber (Probiotic + Colostrum) cefdinir (cefdinir 300 mg Cap) cholecalciferol (Vitamin D3 2000 intl units) cyanocobalamin (Vitamin B-12 100 mcg oral tablet) famotidine (famotidine 20 mg Tab) insulin glargine (Lantus insulin) insulin lispro (Humalog) losartan (losartan 25 mg Tab) metformin (metformin 500 mg Tab) multivitamin with iron (Gentle Iron oral capsule) multivitamin with minerals (One A Day Men's Complete oral tablet) nitrofurantoin (Macrobid 100 mg Cap) oxybutynin (oxybutynin 10 mg ER Tab) Procedures Performed Cystoscopic replacement of [...] of kidney (03/02/2009), heel spur. Discharge Vitals Temperature (Temporal Artery) 37 ?C Heart Rate (Peripheral) 68 Respiratory Rate 16 Blood Pressure 132/67 Height 171 cm Height 67 in Weight 94 kg Weight 206.8 lb BMI 32.15 What to do next You Need to Schedule the Following Appointments Follow Up with Diego RICKS, Orquidea Taylor, URL, URO When: Where: Medications What How Much When Instructions Unchanged aspirin (aspirin 81 mg Chew Tab) Chewed Every day Contact prescribing physician if questions or concerns Unchanged atorvastatin (atorvastatin 20 mg Tab) 1 Tablets By Mouth Every day Contact prescribing physician if questions or concerns Unchanged bifidobacterium-lactobacil huber (Probiotic + Colostrum) By Mouth Every day Contact prescribing physician if questions or concerns Unchanged cefdinir (cefdinir 300 mg Cap) Contact prescribing physician if questions or concerns Unchanged cholecalciferol (Vitamin D3 2000 intl units) By Mouth Every day Contact prescribing physician if questions or concerns Unchanged cyanocobalamin (Vitamin B-12 100 mcg oral tablet) By Mouth Every day Contact prescribing physician [...] prescribing physician if questions or concerns Unchanged losartan (losartan 25 mg Tab) By Mouth Every day Contact prescribing physician if questions or concerns Unchanged metformin (metformin 500 mg Tab) 1 Tablets By Mouth 2 times a day Contact prescribing physician if questions or concerns Unchanged multivitamin with iron (Gentle Iron oral capsule) 1 Capsules By Mouth Every day Contact prescribing physician if questions or concerns Unchanged multivitamin with minerals (One A Day Men's Complete oral tablet) By Mouth Every day Contact prescribing physician if questions or concerns Unchanged nitrofurantoin (Macrobid 100 mg Cap) 1 Capsules By Mouth 2 times a day take 1 cap morning of cath change and 12hrs after Contact prescribing physician if questions or concerns Unchanged oxybutynin (oxybutynin 10 mg ER Tab) [...] (hypertension) Hydroureter Hydroureteronephrosis Incomplete bladder emptying Kidney stones Microhematuria Nocturia Noncompliant bladder OAB (overactive bladder) Prostate cancer Recurrent UTI Rheumatoid arthritis Ureteral stricture (more content not included)... Normal [facility] Patient Educationon 01-28-20 Patient Education Urology Sacral Nerve Stimulator Implantation Sacral nerve stimulator implantation is a procedure to place a device under the skin. The device is used to treat disorders that make it hard to control urine and bowel movements. The device generates mild electrical impulses. It is placed permanently in the area of the upper buttocks. Wires (electrodes) are also inserted into the body so that electrical impulses generated by the device can be sent to the sacral nerves. The sacral nerves control several functions in the lower part of the body, including the passing of urine and stool. Before having sacral nerve stimulator implantation, you may undergo a trial test called a percutaneous nerve evaluation. This trial, which usually lasts 1?2 weeks, helps to determine if sacral nerve stimulation will help your condition. Sacral nerve stimulator implantation is a two-stage surgery. Stage 1 of this surgery involves implanting an electrode into your lower back, near your sacral nerve. A wire (lead) is attached to the electrode and run under the skin to exit through your back. The sacral nerve stimulator lead is attached to a handheld device. This trial helps determine if sacral nerve stimulation will help your condition. If your bladder symptoms improve by at least 50 percent during the trial phase, you may have the second stage. After the device is fully implanted in stage 2, it can be used 24 hours a day. The stimulator will be programmed for you. Your health care provider will set how strong the pulses will be (intensity) and how often they occur (frequency). Tell a health care provider about: ? Any allergies you have. ? All medicines you are taking, including vitamins, herbs, eye drops, creams, and shoa-xjq-ztgqmyt medicines. ? Any problems you or family members have had with anesthetic medicines. ? Any blood disorders you have. ? Any surgeries you have had. ? Any medical conditions you have or have had. ? Whether you are or may be . What are the risks? Generally, this is a safe procedure. However, problems may occur, including: ? Infection. ? Bleeding. ? Uncomfortable sensations, such as a jolting or shocking feeling. ? Movement of the electrode away from the place where it was inserted (migration). ? Failure of the stimulator. ? Damage to nearby structures or organs, such as nerves near the spine. ? Allergic reactions to medicines or the device. What happens before the procedure? Staying hydrated [...] tells you to take them. ? Taking gppw-tso-frywcsx medicines, vitamins, herbs, and supplements. General instructions ? Plan to have a responsible adult take you home from the hospital or clinic. ? If you will be going home right after the procedure, plan to have a responsible adult care for you for the time you are told. This is important. ? Ask your health care provider what steps will be taken to help prevent infection. These steps may include: ? Removing hair at the surgery site. ? Washing skin with a germ-killing soap. ? Taking antibiotic medicine. What happens during the procedure? ? An IV will be inserted into one of your veins. ? You will be given one or more of the following: ? A medicine to help you relax (sedative). ? A medicine to numb the area (local anesthetic). ? A medicine to make you fall asleep (general anesthetic). ? Long needles will be inserted into your lower back. The needles will be guided to the place where the nerves exit the backbone. ? The position of the needles will be tested. If they are in the right spot, your toes or feet may move. If you are awake, you may feel a tingling in your legs. ? The electrodes will be inserted through the needles and into your body. ? The electrodes will be anchored in place close to your sacral nerves. ? Small incisions will be made under the skin in yo (more content not included)... Normal [facility] Urology Office/Clinic Noteon 01-28-2024 Urology Office/Clinic Note Chief Complaint Pt is here to discuss stent exchange HPI Staff 4 mos f/u to discuss R stent exchange. Previous DX: Hydroureteronephrosis, Ureteral Stricture, Noncompliant Bladder, Prostate Cancer, BPH, Incomplete Bladder Emptying, OAB, Kidney Stone & Family Hx of Prostate Cancer. ACTIVE SURVEILLANCE. S/p TURP 08/27/22. S/p cysto, R RGP, stent exchange, Botox 100u, SP tube change 09/23/23. Pt called 01/18/24 with UTI sxs. UA couldn't be done due to thick, cream colored urine. Keflex 500 mg q12hr x 7 days sent empirically. [place] [facility] [place] [facility] [place]. UCx 01/19/24 - >100k K. oxytoca, lane sensitive. Blood cx neg. ANA 01/20/24 [facility] Dysuria: denies Incomplete bladder emptying: Has Bond Hematuria: denies Leaking: denies Abdominal pain: denies Flank pain: denies History of Present Illness Tests reviewed: reviewed UA, ED records, consult notes, ANA, ucx, blood cx, labs, PSA I have reviewed the previous health record information and history for this patient from Dr. Cortez, [facility]. I have reviewed and verified the staff [...] See HPI. Physical Exam Vitals & Measurements T: 37 ?C(Temporal Artery) HR: 68(Peripheral) RR: 16 BP: 132/67 HT: 67 in HT: 171 cm WT: 94 kg WT: 206.8 lb BMI: 32.15 General Appearance: alert, no distress, well nourished, well developed male. Genitourinary: Flank Pain: none. Bladder: nonpalpable. Assessment/Plan 78 year old male with complex urologic history s/p urolift, TURP, incidental finding of fav intermediate risk prostate cancer on active surveillance, found to have right distal ureteral stricture, non-compliant small bladder with BL VUR, acute on chronic renal failure. He was referred to Dr. Jessica Feliciano for further evaluation regarding recommendations of [...] interventions [1] THERESA N/A, pt inactive (1). Pt is here with his . Follows with nephro. 1. 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 S/p cysto, R RGP, stent exchange, Botox 100u, SPT exchange 09/23/23. Last IO SPT change 01/08/24. Mild BL hydro 01/20/24 when admitted for MDR UTI and RINA. Pt does not feel Botox helped with bladder spasms, pt cont taking Oxybutynin bid. Discussed SNM given BL hydro vs cystectomy, pros and cons. Explained requirements to be a candidate for SNM. Educational pamphlets provided. Pt declined cystectomy previously No hx of back surgery. Cannot do SNM implantation at same time as stent exchange. Sacral nerve modulation (SNM) was discussed for treatment of urinary urge incontinence, urgency-frequency syndrome, and non-obstructive urinary retention refractory to conventional therapy. Achieved by direct stimulation of the S3 sacral nerve by placing a metal lead into the nerve. It helps to modulate the reflexes that influence the bladder, sphincter and pelvic floor. Mild electrical pulses help to improve normal voiding function. The first stage is the implantation of a temporary lead and if >50% improvement in voiding diaries for the 1-2 week trial period, the permanent lead and implant are inserted. Efficacy rates are close to 60-90% for urgency urinary incontinence. -Will obtain 3 day voiding diary -Schedule Stage 1 sacral neurmodulation under MAC in future -SPT change next week at same time at stent exchange. -Continue SP tube every 3 week exchanges. 2. OAB (overactive bladder) (N32.81: Overactive bladder) Baseline very severe lower urinary tract symptoms. No improvement with course of anti-inflammatories, anticholinergics, or tamsulosin Pt d/c Myrbetriq due to side effects (mouth sores, fatigue). Reports mouth sores went away after stopping Myrbetriq, while still taking Fluconazole. Has trialed Trospium 20 mg. [2] UDS 10/20/22 - Voided 42 mL with a maximum flow rate of 5 ml/sec and a maximum detrusor recording (more content not included)... Normal [facility] Comment on above: Result Comment: Elec tronically Signed By: Orquidea Cortez MD\.br\Date and Time Signed: 01/28/24 16:57 EDT\.br\Electronically Co-Signed By: Valentina Sharp\.br\Date and Time Co-Signed: 01/28/24 11:14 EDT Consultation Noteon 01-25-20 Consultation Note [id number] Normal [facility] Basophils Auto (Bld) [#/Vol] Ordered By: Clarence Miller on 01-22-2024 Basophils (Bld) [#/Vol] 0.0 10*3/uL 0.0-0.2 [facility] Basophils/100 WBC Auto (Bld) Ordered By: Clarence Miller on 01-22-2024 Basophils/100 WBC (Bld) 0.3 % . [facility] Calcium [Mass/volume] in Ser um or PlasmaOrdered By: Clarence Miller on 01-22-2024 Calcium [Mass/Vol] 8.9 mg/dL 8.6-10.3 [facility] Carbon dioxide, total [Moles /volume] in Serum or PlasmaOrdered By: Clarence Miller on 01-22-2024 CO2 [Moles/Vol] 23.3 mmol/L 21.0-31.0 [facility] Chloride [Moles/volume] in S valeria or PlasmaOrdered By: Clarence Miller on 01-22-2024 Chloride [Moles/Vol] 110 mmol/L High 98-107 [facility] Consultation Noteon 01-22-20 Consultation Note [id number]#[id number] Normal [facility] Creatinine [Mass/volume] in Serum or PlasmaOrdered By: Clarence Miller on 01-22-2024 Creatinine [Mass/Vol] 2.58 mg/dL High 0.70-1.30 [facility] ED Note-Physicianon 01-22-20 ED Note-Physician [id number]#[id number] Normal [facility] ED Note-Physician [id number]#[id number] Normal [facility] Eosinophils Auto (Bld) [#/Vo l]Ordered By: Clarence Miller on 01-22-2024 Eosinophils (Bld) [#/Vol] 0.3 10*3/uL 0.0-0.45 [facility] Eosinophils/100 WBC Auto (Bl d)Ordered By: Clarence Miller on 01-22-2024 Eosinophils/100 WBC (Bld) 3.3 % . [facility] Erythrocyte distribution wid th Auto (RBC) [Ratio]Ordered By: Clarence Miller on 01-22-2024 Erythrocyte distribution width (RBC) [Ratio] 16.1 % High 12.0-14.8 [facility] Ferritin [Mass/volume] in Se rum or PlasmaOrdered By: Price Crain on 01-22-2024 Ferritin [Mass/Vol] 488.7 ng/mL High 23.9-336.2 [facility] Folate [Mass/volume] in Seru m or PlasmaOrdered By: Price Crain on 01-22-2024 Folate [Mass/Vol] 15.7 ng/mL >5.9 [facility] Comment on above: Folate reference ran ge: >5.9 ng/mlThe WHO technical consultation on folate and vitamin [id number] has determined that folate concentrations lessthan 4 ng/ml are considered deficient. Glucose Glucometer (dC) [M ass/Vol]Ordered By: Clarence Miller on 01-22-2024 Glucose [Mass/Vol] 142 mg/dL [facility] Comment on above: Random Glucose Refer ence Range is dependent on time and content of last meal. Glucose of more than 200 mg/dL in a nonstressed, ambulatory subject supports the diagnosis of Diabetes Mellitus. Glucose [Mass/volume] in Ser um or PlasmaOrdered By: Clarence Miller on 01-22-2024 Glucose [Mass/Vol] 51 mg/dL Low 70-100 [facility] Comment on above: ADA recommended refe rence rangeRandom Glucose Reference Range is dependent on time and content of last meal. Glucose of more than 200 mg/dL in a nonstressed, ambulatory subject supports the diagnosis of Diabetes Mellitus. Hematocrit Auto (Bld) [Volum e fraction]Ordered By: Clarence Miller on 01-22-2024 Hematocrit (Bld) [Volume fraction] 26.0 % Low 38.8-50.0 [facility] Hemoglobin [Mass/volume] in BloodOrdered By: Clarence Miller on 01-22-2024 Hemoglobin (Bld) [Mass/Vol] 8.9 g/dL Low 13.0-17.0 [facility] Iron [Mass/volume] in Serum or PlasmaOrdered By: Price Crain on 01-22-2024 Iron [Mass/Vol] 59 ug/dL 50-212 [facility] Iron binding capacity [Mass/ volume] in Serum or PlasmaOrdered By: Price Crain on 01-22-2024 Iron binding capacity [Mass/Vol] 164 ug/dL Low 255-450 [facility] Iron saturation [Mass Fracti on] in Serum or PlasmaOrdered By: Price Crain on 01-22-2024 Iron saturation [Mass fraction] 36.0 % 20-50 [facility] Lab Reportson 01-22-2024 Lab Reports [id number]#[id number] Normal [facility] Leukocytes [#/volume] correc lizbet for nucleated erythrocytes in Blood by Automated counOrdered By: Clarence Miller on 01-22-2024 WBC corrected for nucl RBC Auto (Bld) [#/Vol] 8.1 10*3/uL 4.1-10.5 [facility] Lymphocytes Auto (Bld) [#/Vo l]Ordered By: Clarence Miller on 01-22-2024 Lymphocytes (Bld) [#/Vol] 1.4 10*3/uL 1.00-4.8 [facility] Lymphocytes/100 WBC Auto (Bl d)Ordered By: Clarence Miller on 01-22-2024 Lymphocytes/100 WBC (Bld) 17.0 % . [facility] MCH Auto (RBC) [Entitic mass ]Ordered By: Clarence Miller on 01-22-2024 MCH (RBC) [Entitic mass] 36.5 pg High 27.5-35.2 [facility] MCHC Auto (RBC) [Mass/Vol]Or dered By: Clarence Miller on 01-22-2024 MCHC (RBC) [Mass/Vol] 34.3 g/dL 32.5-35.6 [facility] MCV Auto (RBC) [Entitic vol] Ordered By: Clarence Miller on 01-22-2024 MCV (RBC) [Entitic vol] 106.2 fL High 83.5-101 [facility] Monocytes Auto (Bld) [#/Vol] Ordered By: Clarence Miller on 01-22-2024 Monocytes (Bld) [#/Vol] 0.6 10*3/uL 0.0-0.8 [facility] Monocytes/100 WBC Auto (Bld) Ordered By: Clarence Miller on 01-22-2024 Monocytes/100 WBC (Bld) 7.2 % . [facility] Neutrophils Auto (Bld) [#/Vo l]Ordered By: Clarence Miller on 01-22-2024 Neutrophils (Bld) [#/Vol] 5.8 10*3/uL 1.8-7.7 [facility] Neutrophils/100 WBC Auto (Bl d)Ordered By: Clarence Miller on 01-22-2024 Neutrophils/100 WBC (Bld) 72.2 % . [facility] No Panel InformationOrdered By: Clarence Miller on 01-22-2024 Estimated GFR (CKD-EPI) 24.703 mL/Min [facility] Creatinine Clearance (Chem 26.98 [facility] Nucleated erythrocytes [Pres ence] in Blood by Automated countOrdered By: Clarence Miller on 01-22-2024 Nucleated RBC Auto Ql (Bld) 0.1 /100{WBC} 0-0.5 [facility] Platelet mean volume Auto (B ld) [Entitic vol]Ordered By: Clarence Miller on 01-22-2024 Platelet mean volume (Bld) [Entitic vol] 7.8 fL 6.6-10.1 [facility] Platelets Auto (Bld) [#/Vol] Ordered By: Clarence Miller on 01-22-2024 Platelets (Bld) [#/Vol] 199 10*3/uL 150-450 [facility] Potassium [Moles/volume] in Serum or PlasmaOrdered By: Clarence Miller on 01-22-2024 Potassium [Moles/Vol] 4.1 mmol/L 3.5-5.1 [facility] RAD - MISCon 01-22-2024 RAD - MISC [id number]#[id number] Normal [facility] RAD - Ultrasound Reporton RAD - Ultrasound Report [id number]#1.00TIFF Normal [facility] RBC Auto (Bld) [#/Vol]Ordere d By: Clarence Miller on 01-22-2024 RBC (Bld) [#/Vol] 2.45 10*6/uL Low 3.90-5.60 [facility] Serum or plasma anion gap de terminationOrdered By: Clarence Miller on 01-22-2024 Anion gap [Moles/Vol] 11.8 mmol/L 6.0-15.0 [facility] Sodium [Moles/volume] in Ser um or PlasmaOrdered By: Clarence Miller on 01-22-2024 Sodium [Moles/Vol] 141 mmol/L 136-145 [facility] Transferrin [Mass/volume] in Serum or PlasmaOrdered By: Price Crain on 01-22-2024 Transferrin [Mass/Vol] 117 mg/dL Low 203-362 [facility] Urea nitrogen [Mass/volume] in Serum or PlasmaOrdered By: Clarence Miller on 01-22-2024 Urea nitrogen [Mass/Vol] 31 mg/dL High 7-25 [facility] Vitamin B12 ser/plasOrdered By: Price Crain on 01-22-2024 Cobalamin (Vitamin B12) [Mass/Vol] 426 pg/mL 180-914 [facility] WBC Auto (Bld) [#/Vol]Ordere d By: Clarence Miller on 01-22-2024 WBC (Bld) [#/Vol] 8.1 10*3/uL 4.1-10.5 [facility] C Urineon 01-20-2024 Bacteria identified Cx Nom (U) Microbiology PROCEDURE: Urine Culture [R1] SOURCE: U Random BODY SITE: COLLECTED DATE/TIME: 01/18/2024 15:42 EDT RECEIVED DATE/TIME: 01/18/2024 18:56 EDT START DATE/TIME: 01/18/2024 18:56 EDT FREE TEXT SOURCE: [employer] W[employer]ER, [employer]CH SALES MANAGER-C, [employer] WINDER, [employer]CH SALES MANAGER-C, Makayla X Makayla X FINAL REPORTS Final Report [] Verified Date/Time: 01/20/2024 13:36 EDT <10,000 cfu/ml Mixed skin contaminants including yeast. Mixed cecil (multiple species present) >3 colony types Performing Locations R1: This test was performed at: [facility], [address] [place] [address], [facility]- , , [facility] Comment on above: Performed By: #### [id number] #### [facility] [address] [place] [address] Creatinine [Mass/volume] in UrineOrdered By: Price Crain on 01-20-2024 Creatinine (U) [Mass/Vol] 38.00 mg/dL [facility] Comment on above: No reference range e stablished Sodium [Moles/volume] in Uri neOrdered By: Price Crain on 01-20-2024 Sodium (U) [Moles/Vol] 84 mmol/L [facility] Comment on above: No reference range e stablished Activated partial thrombopla stin time (aPTT) in platelet poor plasma by coagulation aOrdered By: Merry Davies on 01-19-2024 aPTT Coag (PPP) [Time] 24.2 s Low 25.1-36.5 [facility] Comment on above: A hematocrit value g reater than 55% may lead to inaccurate results in coagulation testing. Patients having hematocrit values >55% require a special collection tube for coagulation studies. Please contact the laboratory at [phone] for redraw instructions. Alanine aminotransferase [En zymatic activity/volume] in Serum or PlasmaOrdered By: Merry Davies on 01-19-2024 ALT [Catalytic activity/Vol] 13 U/L 7-52 [facility] Albumin [Mass/volume] in Ser um or Plasma by Bromocresol green (BCG) dye binding methoOrdered By: Merry Davies on 01-19-2024 Albumin BCG dye [Mass/Vol] 3.4 g/dL Low 3.5-5.7 [facility] Alkaline phosphatase [Enzyma tic activity/volume] in Serum or PlasmaOrdered By: Merry Davies on 01-19-2024 ALP [Catalytic activity/Vol] 83 U/L 34-104 [facility] Aspartate aminotransferase [ Enzymatic activity/volume] in Serum or PlasmaOrdered By: Merry Davies on 01-19-2024 AST [Catalytic activity/Vol] 15 U/L 13-39 [facility] Bacteria [Presence] in Urine by AutomatedOrdered By: Merry Davies on 01-19-2024 Bacteria Auto Ql (U) 4+ [HPF] High None Seen [facility] Bacterial blood cultureOrder ed By: Merry Davies on 01-19-2024 Bacteria identified Cx Nom (Bld) NO GROWTH 5 DAYS [facility] Bacteria identified Cx Nom (Bld) NO GROWTH 5 DAYS [facility] Basophils Auto (Bld) [#/Vol] Ordered By: Merry Davies on 01-19-2024 Basophils (Bld) [#/Vol] 0.0 10*3/uL 0.0-0.2 [facility] Basophils/100 WBC Auto (Bld) Ordered By: Merry Davies on 01-19-2024 Basophils/100 WBC (Bld) 0.3 % . [facility] Bilirubin Test strip Ql (U)O rdered By: Merry Davies on 01-19-2024 Bilirubin Ql (U) Negative Negative [facility] Bilirubin.total [Mass/volume ] in Serum or PlasmaOrdered By: Merry Davies on 01-19-2024 Bilirubin [Mass/Vol] 0.5 mg/dL 0.3-1.0 [facility] Calcium [Mass/volume] in Ser um or PlasmaOrdered By: Merry Davies on 01-19-2024 Calcium [Mass/Vol] 9.2 mg/dL 8.6-10.3 [facility] Carbon dioxide, total [Moles /volume] in Serum or PlasmaOrdered By: Merry Davies on 01-19-2024 CO2 [Moles/Vol] 19.3 mmol/L 21.0-31.0 [facility] Chloride [Moles/volume] in S valeria or PlasmaOrdered By: Merry Davies on 01-19-2024 Chloride [Moles/Vol] 105 mmol/L 98-107 [facility] Color Auto (U)Ordered By: Bassem Davies on 01-19-2024 Color (U) Craven Abnormal Yellow [facility] Creatinine [Mass/volume] in Serum or PlasmaOrdered By: Merry Davies on 01-19-2024 Creatinine [Mass/Vol] 3.07 mg/dL 0.70-1.30 [facility] Eosinophils Auto (Bld) [#/Vo l]Ordered By: Merry Davies on 01-19-2024 Eosinophils (Bld) [#/Vol] 0.2 10*3/uL 0.0-0.45 [facility] Eosinophils/100 WBC Auto (Bl d)Ordered By: Merry Davies on 01-19-2024 Eosinophils/100 WBC (Bld) 2.0 % . [facility] Epithelial cells.squamous [# /area] in Urine sediment by Automated countOrdered By: Merry Davies on 01-19-2024 Epithelial cells.squamous Auto (Urine sed) [#/Area] 5-9 [HPF] High 0-2 [facility] Erythrocyte distribution wid th Auto (RBC) [Ratio]Ordered By: Merry Davies on 01-19-2024 Erythrocyte distribution width (RBC) [Ratio] 16.5 % 12.0-14.8 [facility] Erythrocytes [#/area] in Uri ne sediment by Automated countOrdered By: Merry Davies on 01-19-2024 RBC Auto (Urine sed) [#/Area] 20-49 [HPF] High 0-4 [facility] Fecal occult blood detection by immunochemistryOrdered By: Merry Davies on 01-19-2024 Hemoglobin.gastrointest inal Ql (Stl) [facility] Globulin Calc (S) [Mass/Vol] Ordered By: Merry Davies on 01-19-2024 Globulin (S) [Mass/Vol] 3.0 g/dL [facility] Glucose [Mass/volume] in Ser um or PlasmaOrdered By: Merry Davies on 01-19-2024 Glucose [Mass/Vol] 133 mg/dL 70-100 [facility] Comment on above: ADA recommended refe rence rangeRandom Glucose Reference Range is dependent on time and content of last meal. Glucose of more than 200 mg/dL in a nonstressed, ambulatory subject supports the diagnosis of Diabetes Mellitus. Glucose [Mass/volume] in Uri ne by Test stripOrdered By: Merry Davies on 01-19-2024 Glucose Test strip (U) [Mass/Vol] Normal mg/dL Normal [facility] Hematocrit Auto (Bld) [Volum e fraction]Ordered By: Merry Davies on 01-19-2024 Hematocrit (Bld) [Volume fraction] 25.3 % 38.8-50.0 [facility] Hemoglobin Test strip Ql (U) Ordered By: Merry Davies on 01-19-2024 Hemoglobin Ql (U) 3+ High Negative [facility] Hemoglobin [Mass/volume] in BloodOrdered By: Merry Davies on 01-19-2024 Hemoglobin (Bld) [Mass/Vol] 8.5 g/dL 13.0-17.0 [facility] Hyaline casts [#/area] in Ur ine sediment by Automated countOrdered By: Merry Davies on 01-19-2024 Hyaline casts Auto (Urine sed) [#/Area] None [LPF] 0-8 [facility] INR in Platelet poor plasma by Coagulation assayOrdered By: Merry Davies on 01-19-2024 INR Coag (PPP) [Relative time] 1.3 {INR} [facility] Comment on above: INR Therapeutic Rang e A) Pre- and Peroperative OAT started two weeks before surgery. NOT HIP SURGERY: 1.5 - 2.5 HIP SURGERY: 2 - 3B) Primary and secondary prevention of venous THROMBOSIS: 2 - 3C) Active venous thrombosis, pulmonary embolismand prevention of recurrent venous thrombosis: 2 - 3D) Prevention of arterial thromboembolismincluding patients with mechanical heart valves: 3 - 4.5 Ketones Test strip Ql (U)Ord ered By: Merry Davies on 01-19-2024 Ketones Ql (U) Negative Negative [facility] Lactate [Moles/volume] in Se rum or PlasmaOrdered By: Merry Davies on 01-19-2024 Lactate [Moles/Vol] 0.8 mmol/L 0.5-2.2 [facility] Leukocyte clumps [Presence] in Urine by AutomatedOrdered By: Merry Davies on 01-19-2024 Leukocyte clumps Auto Ql (U) Many [LPF] High None Seen [facility] Leukocyte esterase [Presence ] in Urine by Test stripOrdered By: Merry Davies on 01-19-2024 Leukocyte esterase Test strip Ql (U) 4+ High Negative [facility] Leukocytes [#/area] in Urine sediment by Automated countOrdered By: Merry Davies on 01-19-2024 WBC Auto (Urine sed) [#/Area] Innumerable [HPF] High 0-4 [facility] Leukocytes [#/volume] correc lizbet for nucleated erythrocytes in Blood by Automated counOrdered By: Merry Davies on 01-19-2024 WBC corrected for nucl RBC Auto (Bld) [#/Vol] 11.1 10*3/uL 4.1-10.5 [facility] Lymphocytes Auto (Bld) [#/Vo l]Ordered By: Merry Davies on 01-19-2024 Lymphocytes (Bld) [#/Vol] 0.8 10*3/uL 1.00-4.8 [facility] Lymphocytes/100 WBC Auto (Bl d)Ordered By: Merry Davies on 01-19-2024 Lymphocytes/100 WBC (Bld) 6.9 % . [facility] MCH Auto (RBC) [Entitic mass ]Ordered By: Merry Davies on 01-19-2024 MCH (RBC) [Entitic mass] 36.1 pg 27.5-35.2 [facility] MCHC Auto (RBC) [Mass/Vol]Or dered By: Merry Davies on 01-19-2024 MCHC (RBC) [Mass/Vol] 33.6 g/dL 32.5-35.6 [facility] MCV Auto (RBC) [Entitic vol] Ordered By: Merry Davies on 01-19-2024 MCV (RBC) [Entitic vol] 107.7 fL 83.5-101 [facility] Monocyte distribution width [Entitic volume] in Blood by AutomatedOrdered By: Merry Davies on 01-19-2024 Monocyte distribution width Auto (Bld) [Entitic vol] 23.65 % High 0.00-20.00 [facility] Comment on above: For adults in ED, MD W > 20.0 may be associated with a higher risk of sepsis during the first 12 hrs of hospital admission Monocytes Auto (Bld) [#/Vol] Ordered By: Merry Davies on 01-19-2024 Monocytes (Bld) [#/Vol] 0.8 10*3/uL 0.0-0.8 [facility] Monocytes/100 WBC Auto (Bld) Ordered By: Merry Davies on 01-19-2024 Monocytes/100 WBC (Bld) 7.0 % . [facility] Natriuretic peptide B [Mass/ Vol]Ordered By: Merry Davies on 01-19-2024 Natriuretic peptide B (Bld) [Mass/Vol] 125.0 pg/mL High 5-100 [facility] Neutrophils Auto (Bld) [#/Vo l]Ordered By: Merry Davies on 01-19-2024 Neutrophils (Bld) [#/Vol] 9.3 10*3/uL 1.8-7.7 [facility] Neutrophils/100 WBC Auto (Bl d)Ordered By: Merry Davies on 01-19-2024 Neutrophils/100 WBC (Bld) 83.8 % . [facility] Nitrite Test strip Ql (U)Ord ered By: Merry Davies on 01-19-2024 Nitrite Ql (U) Negative Negative [facility] No Panel InformationOrdered By: Merry Davies on 01-19-2024 Estimated GFR (CKD-EPI) 20.051 mL/Min [facility] Creatinine Clearance (Chem 22.52 [facility] Nucleated erythrocytes [Pres ence] in Blood by Automated countOrdered By: Merry Davies on 01-19-2024 Nucleated RBC Auto Ql (Bld) 0.0 /100{WBC} 0-0.5 [facility] Platelet mean volume Auto (B ld) [Entitic vol]Ordered By: Merry Davies on 01-19-2024 Platelet mean volume (Bld) [Entitic vol] 8.0 fL 6.6-10.1 [facility] Platelets Auto (Bld) [#/Vol] Ordered By: Merry Davies on 01-19-2024 Platelets (Bld) [#/Vol] 181 10*3/uL 150-450 [facility] Potassium [Moles/volume] in Serum or PlasmaOrdered By: Merry Davies on 01-19-2024 Potassium [Moles/Vol] 4.4 mmol/L 3.5-5.1 [facility] Protein Test strip (U) [Mass /Vol]Ordered By: Merry Davies on 01-19-2024 Protein (U) [Mass/Vol] 200 mg/dL High Negative [facility] Protein [Mass/volume] in Ser um or PlasmaOrdered By: Merry Daveis on 01-19-2024 Protein [Mass/Vol] 6.4 g/dL 6.4-8.9 [facility] Prothrombin time (PT)Ordered By: Merry Davies on 01-19-2024 PT Coag (PPP) [Time] 15.2 s High 9.0-12.9 [facility] Comment on above: A hematocrit value g reater than 55% may lead to inaccurate results in coagulation testing. Patients having hematocrit values >55% require a special collection tube for coagulation studies. Please contact the laboratory at [phone] for redraw instructions. RBC Auto (Bld) [#/Vol]Ordere d By: Merry Davies on 01-19-2024 RBC (Bld) [#/Vol] 2.35 10*6/uL 3.90-5.60 [facility] Serum or plasma albumin/glob ulin mass ratioOrdered By: Merry Davies on 01-19-2024 Albumin/Globulin [Mass ratio] 1.1 {ratio} [facility] Serum or plasma anion gap de terminationOrdered By: Merry Davies on 01-19-2024 Anion gap [Moles/Vol] 13.1 mmol/L 6.0-15.0 [facility] Sodium [Moles/volume] in Ser um or PlasmaOrdered By: Merry Davies on 01-19-2024 Sodium [Moles/Vol] 133 mmol/L 136-145 [facility] Specific gravity Test strip (U) [Rel density]Ordered By: Merry Davies on 01-19-2024 Specific gravity (U) [Rel density] 1.013 1.001-1.03 0 [facility] Thyrotropin [Units/volume] i n Serum or PlasmaOrdered By: Merry Davies on 01-19-2024 TSH Qn 0.17 m[IU]/L Low 0.45-5.33 [facility] Thyroxine (T4) free [Mass/vo lume] in Serum or PlasmaOrdered By: Merry Davies on 01-19-2024 Free T4 [Mass/Vol] 0.89 ng/dL 0.61-1.12 [facility] Troponin I.cardiac [Mass/vol ume] in Serum or Plasma by Detection limit <= 0.01 ng/Ordered By: Merry Davies on 01-19-2024 Troponin I.cardiac DL <= 0.01 ng/mL [Mass/Vol] 10.8 pg/mL 0.0-20.0 [facility] Urea nitrogen [Mass/volume] in Serum or PlasmaOrdered By: Merry Davies on 01-19-2024 Urea nitrogen [Mass/Vol] 47 mg/dL 7-25 [facility] Urine appearanceOrdered By: Merry Davies on 01-19-2024 Appearance (U) Turbid Abnormal Clear [facility] Urine culture routineOrdered By: Merry Davies on 01-19-2024 Bacteria identified Cx Nom (U) Klebsiella oxytoca Abnormal [facility] Urobilinogen Test strip (U) [Mass/Vol]Ordered By: Merry Davies on 01-19-2024 Urobilinogen (U) [Mass/Vol] Normal mg/dL Normal [facility] WBC Auto (Bld) [#/Vol]Ordere d By: Merry Davies on 01-19-2024 WBC (Bld) [#/Vol] 11.1 10*3/uL 4.1-10.5 [facility] pH Test strip (U)Ordered By: Merry Davies on 01-19-2024 pH (U) 6.0 [pH] 5.0-9.0 [facility] Ambulatory Visit Summaryon 0 01-18-2024 Ambulatory Visit Summary PATSY CUNNINGHAM :1945 Visit Date:01/18/2024 Ambulatory Visit Instructions Your Diagnosis Recurrent UTI Your Care Team Attending Physician - Diego RICKS, Orquidea Taylor Primary Care Physician - DON RICKS, HELEN This Is Your Medications List acyclovir (Zovirax 400 mg Tab) aspirin (aspirin 81 mg Chew Tab) atorvastatin (atorvastatin 20 mg Tab) bifidobacterium-lactobacil huber (Probiotic + Colostrum) cholecalciferol (Vitamin D3 2000 intl units) doxycycline (doxycycline monohydrate 100 mg oral capsule) famotidine (famotidine 20 mg Tab) insulin glargine (Lantus insulin) insulin lispro (Humalog) lenalidomide (Revlimid 5 mg oral capsule) losartan (losartan 25 mg Tab) metformin (metformin 500 mg Tab) nitrofurantoin (Macrobid 100 mg Cap) oxybutynin (oxybutynin 10 mg ER Tab) potassium [...] What to do next Scheduled Follow-Up Appointments Jan. 2023 10:15 AM EDT With: Diego RICKS, Orquidea Taylor Where: [facility] Urineon 01-10-2024 Bacteria identified Cx Nom (U) Microbiology PROCEDURE: Urine Culture [R1] SOURCE: U Suprapubic BODY SITE: COLLECTED DATE/TIME: 01/08/2024 11:37 EDT RECEIVED DATE/TIME: 01/08/2024 17:42 EDT START DATE/TIME: 01/08/2024 17:42 EDT FREE TEXT SOURCE: EFREN RICKS, Santi SCHWARTZ MD, Santi Almazan FINAL REPORTS Final Report [] Verified Date/Time: 01/10/2024 09:55 EDT >100,000 cfu/ml Klebsiella oxytoca isolated. >100,000 cfu/ml Streptococcus agalactiae (Group B) Presumptive isolated. Penicillin is the drug of choice for Beta Hemolytic Streptococci Isolates. Routine susceptibility testing on Beta Hemolytic Streptococcus isolates is no longer performed. Susceptibilities will continue to be performed on Isolates from sterile body fluids and serious wound infections. SUSCEPTIBILITY RESULTS _ LEGEND: S=Susceptible, N/R=Not Reported, Blank=Data not available, or drug not advisable or tested, I=Intermediate, ESBL=Extended spectrum beta-lactamase, R=Resistant, TFG=Thymidine-dependent strain, RADHA=Beta-lactamase positive, DEEPA=mcg/m;(mg/L), S*=Predicted susceptible interp, R*=Predicted resistant interp Kleoxy Antibiotic DEEPA Dilutn DEEPA Interp Amikacin <=16 S Ampicillin 16 R* Ampicillin/ <=8/4 S Sulbactam Aztreonam <=4 S Cefazolin <=2 S Cefepime <=2 S Cefoxitin <=8 S Ceftazidime <=1 S Ceftazidime/ <=8 S Avibactam Ceftriaxone <=1 S Ciprofloxacin <=1 S Ertapenem <=0.5 S Gentamicin <=4 S Levofloxacin <=2 S Meropenem <=1 S Nitrofurantoin <=32 S Piperacillin/ <=16 S Tazobactam Tetracycline <=4 S Tigecycline <=2 S Tobramycin <=4 S Trimethoprim/ <=2/38 S Sulfa Performing Locations R1: This test was performed at: [facility], [address] [place] [address], [id number], [facility] Comment on above: Performed By: #### [id number] #### [facility] [address] [place] [id number] Bacteria identified Cx Nom (U) Microbiology PROCEDURE: Urine Culture [R1] SOURCE: U Suprapubic BODY SITE: COLLECTED DATE/TIME: 01/08/2024 11:37 EDT RECEIVED DATE/TIME: 01/08/2024 17:42 EDT START DATE/TIME: 01/08/2024 17:42 EDT FREE TEXT SOURCE: EFREN RICKS, Santi SCHWARTZ MD, Santi Almazan FINAL REPORTS Final Report [] Verified Date/Time: 01/10/2024 09:55 EDT >100,000 cfu/ml Klebsiella oxytoca isolated. >100,000 cfu/ml Streptococcus agalactiae (Group B) Presumptive isolated. Penicillin is the drug of choice for Beta Hemolytic Streptococci Isolates. Routine susceptibility testing on Beta Hemolytic Streptococcus isolates is no longer performed. Susceptibilities will continue to be performed on Isolates from sterile body fluids and serious wound infections. SUSCEPTIBILITY RESULTS _ LEGEND: S=Susceptible, N/R=Not Reported, Blank=Data not available, or drug not advisable or tested, I=Intermediate, ESBL=Extended spectrum beta-lactamase, R=Resistant, TFG=Thymidine-dependent strain, RADHA=Beta-lactamase positive, DEEPA=mcg/m;(mg/L), S*=Predicted susceptible interp, R*=Predicted resistant interp Kleoxy Antibiotic DEEPA Dilutn DEEPA Interp Amikacin <=16 S Ampicillin 16 R* Ampicillin/ <=8/4 S Sulbactam Aztreonam <=4 S Cefazolin <=2 S Cefepime <=2 S Cefoxitin <=8 S Ceftazidime <=1 S Ceftazidime/ <=8 S Avibactam Ceftriaxone <=1 S Ciprofloxacin <=1 S Ertapenem <=0.5 S Gentamicin <=4 S Levofloxacin <=2 S Meropenem <=1 S Nitrofurantoin <=32 S Piperacillin/ <=16 S Tazobactam Tetracycline <=4 S Tigecycline <=2 S Tobramycin <=4 S Trimethoprim/ <=2/38 S Sulfa Performing Locations R1: This test was performed at: [facility], [address] [place] [address], [id number]- , [place], Normal [facility] Comment on above: Performed By: #### [id number] #### [facility] [address] [place] [id number] C Urineon 12-11-2023 Bacteria identified Cx Nom (U) Microbiology PROCEDURE: Urine Culture [R1] SOURCE: U Cath BODY SITE: COLLECTED DATE/TIME: 12/09/2023 11:13 EDT RECEIVED DATE/TIME: 12/09/2023 17:47 EDT START DATE/TIME: 12/09/2023 17:47 EDT FREE TEXT SOURCE: Nancie Boyle, Nancie Bhat FINAL REPORTS Final Report [] Verified Date/Time: 12/11/2023 12:48 EDT 75,000 cfu/ml Stenotrophomonas maltophilia >100,000 cfu/ml Streptococcus agalactiae (Group B) Presumptive isolated. Penicillin is the drug of choice for Beta Hemolytic Streptococci Isolates. Routine susceptibility testing on Beta Hemolytic Streptococcus isolates is no longer performed. Susceptibilities will continue to be performed on Isolates from sterile body fluids and serious wound infections. SUSCEPTIBILITY RESULTS _ LEGEND: S=Susceptible, N/R=Not Reported, Blank=Data not available, or drug not advisable or tested, I=Intermediate, ESBL=Extended spectrum beta-lactamase, R=Resistant, TFG=Thymidine-dependent strain, RADHA=Beta-lactamase positive, DEEPA=mcg/m;(mg/L), S*=Predicted susceptible interp, R*=Predicted resistant interp Stemal Antibiotic DEEPA Dilutn DEEPA Interp Levofloxacin <=2 S Trimethoprim/ <=2/38 S Sulfa Performing Locations R1: This test was performed at: [facility], [address] [place] [address], [facility]- , , [facility] Comment on above: Performed By: #### [id number] #### [facility] [address] [place] [id number] Alanine aminotransferase [En zymatic activity/volume] in Serum or PlasmaOrdered By: Helen Heath on 11-04-2023 ALT [Catalytic activity/Vol] 15 U/L 7-52 [facility] Albumin [Mass/volume] in Ser um or Plasma by Bromocresol green (BCG) dye binding methoOrdered By: Helen Heath on 11-04-2023 Albumin BCG dye [Mass/Vol] 4.1 g/dL 3.5-5.7 [facility] Alkaline phosphatase [Enzyma tic activity/volume] in Serum or PlasmaOrdered By: Helen Heath on 11-04-2023 ALP [Catalytic activity/Vol] 85 U/L 34-104 [facility] Aspartate aminotransferase [ Enzymatic activity/volume] in Serum or PlasmaOrdered By: Helen Heath on 11-04-2023 AST [Catalytic activity/Vol] 17 U/L 13-39 [facility] Basophils Auto (Bld) [#/Vol] Ordered By: Helen Heath on 11-04-2023 Basophils (Bld) [#/Vol] 0.0 10*3/uL 0.0-0.2 [facility] Basophils/100 WBC Auto (Bld) Ordered By: Helen Heath on 11-04-2023 Basophils/100 WBC (Bld) 0.3 % . [facility] Bilirubin.total [Mass/volume ] in Serum or PlasmaOrdered By: Helen Heath on 11-04-2023 Bilirubin [Mass/Vol] 0.3 mg/dL 0.3-1.0 [facility] Calcium [Mass/volume] in Ser um or PlasmaOrdered By: Helen Heath on 11-04-2023 Calcium [Mass/Vol] 9.3 mg/dL 8.6-10.3 [facility] Carbon dioxide, total [Moles /volume] in Serum or PlasmaOrdered By: Helen Heath on 11-04-2023 CO2 [Moles/Vol] 25.5 mmol/L 21.0-31.0 [facility] Chloride [Moles/volume] in S valeria or PlasmaOrdered By: Helen Heath on 11-04-2023 Chloride [Moles/Vol] 109 mmol/L 98-107 [facility] Cholesterol [Mass/volume] in Serum or PlasmaOrdered By: Helen Heath on 11-04-2023 Cholesterol [Mass/Vol] 128 mg/dL 140-200 [facility] Comment on above: Chol less than 200 m g/dl low riskChol 201-239 mg/dl borderline riskChol 240 mg/dl and greater high risk Cholesterol in LDL Calc [Mas s/Vol]Ordered By: Helen Heath on 11-04-2023 Cholesterol in LDL [Mass/Vol] 71 mg/dL 0-100 [facility] Comment on above: LDL ATP III CLASSIFI CATIONLDL less than 100 mg/dL OptimalLDL 100-129 mg/dL Near or above optimalLDL 130-159 mg/dL Borderline highLDL 160-189 mg/dL HighLDL greater than 189 mg/dL Very high Cholesterol in VLDL Calc [Ma ss/Vol]Ordered By: Helen Heath on 11-04-2023 Cholesterol in VLDL [Mass/Vol] 19 mg/dL [facility] Creatinine [Mass/volume] in Serum or PlasmaOrdered By: Helen Heath on 11-04-2023 Creatinine [Mass/Vol] 1.87 mg/dL 0.70-1.30 [facility] Creatinine [Mass/volume] in UrineOrdered By: Helen Heath on 11-04-2023 Creatinine (U) [Mass/Vol] 116.0 mg/dL 14.0-26.0 [facility] Eosinophils Auto (Bld) [#/Vo l]Ordered By: Helen Heath on 11-04-2023 Eosinophils (Bld) [#/Vol] 0.3 10*3/uL 0.0-0.45 [facility] Eosinophils/100 WBC Auto (Bl d)Ordered By: Helen Heath on 11-04-2023 Eosinophils/100 WBC (Bld) 3.4 % . [facility] Erythrocyte distribution wid th Auto (RBC) [Ratio]Ordered By: Helen Heath on 11-04-2023 Erythrocyte distribution width (RBC) [Ratio] 16.5 % 12.0-14.8 [facility] Globulin Calc (S) [Mass/Vol] Ordered By: Helen Heath on 11-04-2023 Globulin (S) [Mass/Vol] 2.5 g/dL [facility] Glucose [Mass/volume] in Ser um or PlasmaOrdered By: Helen Heath on 11-04-2023 Glucose [Mass/Vol] 105 mg/dL 70-100 [facility] Comment on above: ADA recommended refe rence rangeRandom Glucose Reference Range is dependent on time and content of last meal. Glucose of more than 200 mg/dL in a nonstressed, ambulatory subject supports the diagnosis of Diabetes Mellitus. Hematocrit Auto (Bld) [Volum e fraction]Ordered By: Helen Heath on 11-04-2023 Hematocrit (Bld) [Volume fraction] 31.7 % 38.8-50.0 [facility] Hemoglobin [Mass/volume] in BloodOrdered By: Helen Heath on 11-04-2023 Hemoglobin (Bld) [Mass/Vol] 10.3 g/dL 13.0-17.0 [facility] Leukocytes [#/volume] correc lizbet for nucleated erythrocytes in Blood by Automated counOrdered By: Helen Heath on 11-04-2023 WBC corrected for nucl RBC Auto (Bld) [#/Vol] 7.6 10*3/uL 4.1-10.5 [facility] Lymphocytes Auto (Bld) [#/Vo l]Ordered By: Helen Heath on 11-04-2023 Lymphocytes (Bld) [#/Vol] 1.0 10*3/uL 1.00-4.8 [facility] Lymphocytes/100 WBC Auto (Bl d)Ordered By: Helen Heath on 11-04-2023 Lymphocytes/100 WBC (Bld) 12.9 % . [facility] MCH Auto (RBC) [Entitic mass ]Ordered By: Helen Heath on 11-04-2023 MCH (RBC) [Entitic mass] 35.2 pg 27.5-35.2 [facility] MCHC Auto (RBC) [Mass/Vol]Or dered By: Helen Heath on 11-04-2023 MCHC (RBC) [Mass/Vol] 32.6 g/dL 32.5-35.6 [facility] MCV Auto (RBC) [Entitic vol] Ordered By: Helen Heath on 11-04-2023 MCV (RBC) [Entitic vol] 107.9 fL 83.5-101 [facility] Microalbumin [Mass/volume] i n UrineOrdered By: Helen Heath on 11-04-2023 Albumin DL <= 20 mg/L (U) [Mass/Vol] mg/dL 0.0-1.8 [facility] Monocytes Auto (Bld) [#/Vol] Ordered By: Helen Heath on 11-04-2023 Monocytes (Bld) [#/Vol] 0.5 10*3/uL 0.0-0.8 [facility] Monocytes/100 WBC Auto (Bld) Ordered By: Helen Heath on 11-04-2023 Monocytes/100 WBC (Bld) 6.6 % . [facility] Neutrophils Auto (Bld) [#/Vo l]Ordered By: Helen Heath on 11-04-2023 Neutrophils (Bld) [#/Vol] 5.8 10*3/uL 1.8-7.7 [facility] Neutrophils/100 WBC Auto (Bl d)Ordered By: Helen Heath on 11-04-2023 Neutrophils/100 WBC (Bld) 76.8 % . [facility] No Panel InformationOrdered By: Helen Heath on 11-04-2023 Estimated GFR (CKD-EPI) 36.349 mL/Min [facility] Creatinine Clearance (Chem N/A [facility] Nucleated erythrocytes [Pres ence] in Blood by Automated countOrdered By: Helen Heath on 11-04-2023 Nucleated RBC Auto Ql (Bld) 0.1 /100{WBC} 0-0.5 [facility] Platelet mean volume Auto (B ld) [Entitic vol]Ordered By: Helen Heath on 11-04-2023 Platelet mean volume (Bld) [Entitic vol] 7.8 fL 6.6-10.1 [facility] Platelets Auto (Bld) [#/Vol] Ordered By: Helen Heath on 11-04-2023 Platelets (Bld) [#/Vol] 189 10*3/uL 150-450 [facility] Potassium [Moles/volume] in Serum or PlasmaOrdered By: Helen Heath on 11-04-2023 Potassium [Moles/Vol] 4.7 mmol/L 3.5-5.1 [facility] Protein [Mass/volume] in Ser um or PlasmaOrdered By: Helen Heath on 11-04-2023 Protein [Mass/Vol] 6.6 g/dL 6.4-8.9 [facility] RBC Auto (Bld) [#/Vol]Ordere d By: Helen Heath on 11-04-2023 RBC (Bld) [#/Vol] 2.94 10*6/uL 3.90-5.60 [facility] Serum or plasma albumin/glob ulin mass ratioOrdered By: Helen Heath on 11-04-2023 Albumin/Globulin [Mass ratio] 1.6 {ratio} [facility] Serum or plasma anion gap de terminationOrdered By: Helen Heath on 11-04-2023 Anion gap [Moles/Vol] 9.2 mmol/L 6.0-15.0 [facility] Serum or plasma high density lipoprotein (HDL) cholesterol measurementOrdered By: Helen Heath on 11-04-2023 Cholesterol in HDL [Mass/Vol] 38 mg/dL 23-92 [facility] Comment on above: HDL CHOL ATP-III CLA SSIFICATION Cardiovascular RiskHDL > or equal to 60 mg/dL LOWHDL < 40 mg/dL HIGH Serum or plasma total choles terol/high density lipoprotein (HDL) cholesterol mass ratOrdered By: Helen Heath on 11-04-2023 Cholesterol.total/Remedios sterol in HDL [Mass ratio] 3.4 {ratio} <5.0 [facility] Sodium [Moles/volume] in Ser um or PlasmaOrdered By: Helen Heath on 11-04-2023 Sodium [Moles/Vol] 139 mmol/L 136-145 [facility] Thyrotropin [Units/volume] i n Serum or PlasmaOrdered By: Helen Heath on 11-04-2023 TSH Qn 0.54 m[IU]/L 0.45-5.33 [facility] Thyroxine (T4) free [Mass/vo lume] in Serum or PlasmaOrdered By: Helen Heath on 11-04-2023 Free T4 [Mass/Vol] 0.85 ng/dL 0.61-1.12 [facility] Triglyceride [Mass/volume] i n Serum or PlasmaOrdered By: Helen Heath on 11-04-2023 Triglyceride [Mass/Vol] 97 mg/dL 0-149 [facility] Comment on above: TRIG ATP III CLASSIF ICATIONTRIG less than 150 mg/dL NormalTRIG 150-199 mg/dL Borderline highTRIG 200-500 mg/dL High TRIG greater than 500 mg/dL Very highStandard traceable to the Center for Disease Conrtrol and Prevention (CDC) test method. Urea nitrogen [Mass/volume] in Serum or PlasmaOrdered By: Helen Heath on 11-04-2023 Urea nitrogen [Mass/Vol] 30 mg/dL 7- [facility] Urine microalbumin/creatinin e mass ratioOrdered By: Helen Heath on 11-04-2023 Albumin/Creatinine DL <= 20 mg/L (U) [Mass ratio] TNP [facility] Comment on above: Test not performed Vitamin D+Metabolites [Mass/ volume] in Serum or PlasmaOrdered By: Helen Haeth on 11-04-2023 Vitamin D+Metabolites [Mass/Vol] 61.8 ng/mL 30-100 [facility] Comment on above: VITAMIN D STATUS 25( [place])VITAMIN D RANGE (ng/mL) Deficient <20 Insufficient 20 to <30Sufficient 30 to 100Reference: Dieudonne MF,Brendon GUERRA, Estrella CARTER, et al. Evaluation,treatment, and prevention of vitamin D deficiency; an Endocrine Society clinical practice guideline. JCEM. 2010; 96(7):1911-30. WBC Auto (Bld) [#/Vol]Ordere d By: Helen Heath on 11-04-2023 WBC (Bld) [#/Vol] 7.6 10*3/uL 4.1-10.5 [facility] Interpretation of 24 hour ur ine protein electrophoresis pattern (narrative result)Ordered By: Price Crain on 10-26-2023 Protein Fractions Elph Dickson (24H U) [Interp] N/A [facility] [place] light chains.free [Mas s/volume] in UrineOrdered By: Price Crain on 10-26-2023 Immunoglobulin light chains.kappa.free (U) [Mass/Vol] 98.10 mg/L 1.17-86.46 [facility] [place] light chains.free/[place] light chains.free [Mass Ratio] in UrineOrdered By: Price Crain on 10-26-2023 Immunoglobulin light chains.kappa.free/Immun oglobulin light chains.lambda.free (U) [Mass ratio] 4.63 1.83-14.26 [facility] Comment on above: Performed at: [address] [id number] Director: Aliya Curtis MD, Phone: [phone] Lambda light chains.free [Ma ss/volume] in UrineOrdered By: Price Crain on 10-26-2023 Immunoglobulin light chains.lambda.free (U) [Mass/Vol] 21.19 mg/L 0.27-15.21 [facility] No Panel InformationOrdered By: Price Crain on 10-26-2023 Urine Albumin 24 Hours 44.8 % . [facility] Urine Xgyxp-[id number] 1.0 % . Fi [facility] Urine Yfinl-2-Uizhhhblg 13.2 % . [facility] Urine Beta Globulin 20.3 % . [facility] Urine Gamma Globulin 20.7 % . [facility] Urine IEP M-Anselmo % 24 Hr Comment: % Not Observed [facility] Comment on above: UPE shows an asymmet rical gamma. Urine Random Prot Electrophor Note See comment . [facility] Comment on above: Protein electrophore sis scan will follow via computer,mail, or revenue stamp cutter delivery.Performed at: [facility] [id number] Director: Melchor Agrawal PhD, Phone: [phone] Protein [Mass/time] in 24 ho ur UrineOrdered By: Price Crain on 10-26-2023 Protein (24H U) [Mass/Time] 1760 mg/24 hr 30-150 [facility] Protein [Mass/volume] in Uri neOrdered By: Price Crain on 10-26-2023 Protein (U) [Mass/Vol] 117.3 mg/dL Not Estab. [facility] Protein.monoclonal [Mass/amalia e] in 24 hour Urine by ElectrophoresisOrdered By: Price Crain on 10-26-2023 Protein.monoclonal Elph (24H U) [Mass/Time] N/A [facility] Alanine aminotransferase [En zymatic activity/volume] in Serum or PlasmaOrdered By: Price Crain on 10-22-2023 ALT [Catalytic activity/Vol] 15 U/L 7-52 [facility] Albumin [Mass/volume] in Ser um or Plasma by Bromocresol green (BCG) dye binding methoOrdered By: Price Crain on 10-22-2023 Albumin BCG dye [Mass/Vol] 3.9 g/dL 3.5-5.7 [facility] Alkaline phosphatase [Enzyma tic activity/volume] in Serum or PlasmaOrdered By: Price Crain on 10-22-2023 ALP [Catalytic activity/Vol] 85 U/L 34-104 [facility] Aspartate aminotransferase [ Enzymatic activity/volume] in Serum or PlasmaOrdered By: Price Crain on 10-22-2023 AST [Catalytic activity/Vol] 16 U/L 13-39 [facility] Bilirubin.total [Mass/volume ] in Serum or PlasmaOrdered By: Price Crain on 10-22-2023 Bilirubin [Mass/Vol] 0.4 mg/dL 0.3-1.0 [facility] Calcium [Mass/volume] in Ser um or PlasmaOrdered By: Price Crain on 10-22-2023 Calcium [Mass/Vol] 9.0 mg/dL 8.6-10.3 [facility] Carbon dioxide, total [Moles /volume] in Serum or PlasmaOrdered By: Price Crain on 10-22-2023 CO2 [Moles/Vol] 25.0 mmol/L 21.0-31.0 [facility] Chloride [Moles/volume] in S valeria or PlasmaOrdered By: Price Crain on 10-22-2023 Chloride [Moles/Vol] 109 mmol/L 98-107 [facility] Creatinine [Mass/volume] in Serum or PlasmaOrdered By: Price Crain on 10-22-2023 Creatinine [Mass/Vol] 1.91 mg/dL 0.70-1.30 [facility] Erythrocyte distribution wid th Auto (RBC) [Ratio]Ordered By: Price Crain on 10-22-2023 Erythrocyte distribution width (RBC) [Ratio] 16.5 % 12.0-14.8 [facility] Globulin Calc (S) [Mass/Vol] Ordered By: Price Crain on 10-22-2023 Globulin (S) [Mass/Vol] 2.4 g/dL [facility] Glucose [Mass/volume] in Ser um or PlasmaOrdered By: Price Crain on 10-22-2023 Glucose [Mass/Vol] 70 mg/dL 70-100 [facility] Comment on above: ADA recommended refe rence rangeRandom Glucose Reference Range is dependent on time and content of last meal. Glucose of more than 200 mg/dL in a nonstressed, ambulatory subject supports the diagnosis of Diabetes Mellitus. Hematocrit Auto (Bld) [Volum e fraction]Ordered By: Price Crain on 10-22-2023 Hematocrit (Bld) [Volume fraction] 29.4 % 38.8-50.0 [facility] Hemoglobin [Mass/volume] in BloodOrdered By: Price Crain on 10-22-2023 Hemoglobin (Bld) [Mass/Vol] 9.8 g/dL 13.0-17.0 [facility] Immunofixation for UrineOrde red By: Price Crain on 10-22-2023 Interpretation Immunofixation (U) [Interp] See comment . [facility] Comment on above: Immunofixation shows IgG monoclonal protein with kappalight chain specificity.Performed at: [facility] [id number] Director: Melchor Agrawal PhD, Phone: [phone] Leukocytes [#/volume] correc lizbet for nucleated erythrocytes in Blood by Automated counOrdered By: Price Crain on 10-22-2023 WBC corrected for nucl RBC Auto (Bld) [#/Vol] 7.4 10*3/uL 4.1-10.5 [facility] MCH Auto (RBC) [Entitic mass ]Ordered By: Price Crain on 10-22-2023 MCH (RBC) [Entitic mass] 35.9 pg 27.5-35.2 [facility] MCHC Auto (RBC) [Mass/Vol]Or dered By: Price Crain on 10-22-2023 MCHC (RBC) [Mass/Vol] 33.4 g/dL 32.5-35.6 [facility] MCV Auto (RBC) [Entitic vol] Ordered By: Price Crain on 10-22-2023 MCV (RBC) [Entitic vol] 107.6 fL 83.5-101 [facility] Magnesium [Mass/volume] in S valeria or PlasmaOrdered By: Price Crain on 10-22-2023 Magnesium [Mass/Vol] 1.9 mg/dL 1.9-2.7 [facility] Magnesium [Mass/Vol] Magnesium [Mass/vol ume] in Serum or Plasma 1.9-2.7 [facility] No Panel InformationOrdered By: Price Crain on 10-22-2023 Estimated GFR (CKD-EPI) 35.437 mL/Min [facility] Creatinine Clearance (Chem 37.47 [facility] Parathyrin.intact [Mass/volu me] in Serum or PlasmaOrdered By: Price Crain on 10-22-2023 Parathyrin.intact [Mass/Vol] 44.7 pg/mL [facility] Parathyrin.intact [Mass/Vol] Parathyrin.intact [Mass/volume] in Serum or Plasma [facility] Phosphate [Mass/volume] in S valeria or PlasmaOrdered By: Price Crain on 10-22-2023 Phosphate [Mass/Vol] 3.1 mg/dL 2.5-4.5 [facility] Phosphate [Mass/Vol] Phosphate [Mass/vol ume] in Serum or Plasma 2.5-4.5 [facility] Platelet mean volume Auto (B ld) [Entitic vol]Ordered By: Price Crain on 10-22-2023 Platelet mean volume (Bld) [Entitic vol] 7.8 fL 6.6-10.1 [facility] Platelets Auto (Bld) [#/Vol] Ordered By: Price Crain on 10-22-2023 Platelets (Bld) [#/Vol] 172 10*3/uL 150-450 [facility] Potassium [Moles/volume] in Serum or PlasmaOrdered By: Price Crain on 10-22-2023 Potassium [Moles/Vol] 4.4 mmol/L 3.5-5.1 [facility] Protein [Mass/volume] in Ser um or PlasmaOrdered By: Price Crain on 10-22-2023 Protein [Mass/Vol] 6.3 g/dL 6.4-8.9 [facility] RBC Auto (Bld) [#/Vol]Ordere d By: Price Crain on 10-22-2023 RBC (Bld) [#/Vol] 2.73 10*6/uL 3.90-5.60 [facility] Serum or plasma albumin/glob ulin mass ratioOrdered By: Price Crain on 10-22-2023 Albumin/Globulin [Mass ratio] 1.6 {ratio} [facility] Serum or plasma anion gap de terminationOrdered By: Price Crain on 10-22-2023 Anion gap [Moles/Vol] 9.4 mmol/L 6.0-15.0 [facility] Sodium [Moles/volume] in Ser um or PlasmaOrdered By: Price Crain on 10-22-2023 Sodium [Moles/Vol] 139 mmol/L 136-145 [facility] Urate [Mass/volume] in Serum or PlasmaOrdered By: Price Crain on 10-22-2023 Urate [Mass/Vol] 4.7 mg/dL 4.4-7.6 [facility] Urate [Mass/Vol] Urate [Mass/volume] in Serum or Plasma 4.4-7.6 [facility] Urea nitrogen [Mass/volume] in Serum or PlasmaOrdered By: Price Crain on 10-22-2023 Urea nitrogen [Mass/Vol] 29 mg/dL 7-25 [facility] Vitamin D+Metabolites [Mass/ volume] in Serum or PlasmaOrdered By: Price Crain on 10-22-2023 Vitamin D+Metabolites [Mass/Vol] 61.4 ng/mL 30-100 [facility] Comment on above: VITAMIN D STATUS 25( [place])VITAMIN D RANGE (ng/mL) Deficient <20 Insufficient 20 to <30Sufficient 30 to 100Reference: Brendon Daniel, Estrella CARTER, et al. Evaluation,treatment, and prevention of vitamin D deficiency; an Endocrine Society clinical practice guideline. JCEM. 2010; 96(7):1911-30. Vitamin D+Metabolites [Mass/Vol] Vitamin D+Metabolites [Mass/volume] in Serum or Plasma 30-100 [facility] Comment on above: VITAMIN D STATUS 25( [place])VITAMIN D RANGE (ng/mL) Deficient <20 Insufficient 20 to <30Sufficient 30 to 100Reference: Brendon Daniel, Estrella CARTER, et al. Evaluation,treatment, and prevention of vitamin D deficiency; an Endocrine Society clinical practice guideline. JCEM. 2010; 96(7):1911-30. Albumin [Mass/volume] in Ser um or PlasmaOrdered By: Brook Huddleston on 10-08-2023 Albumin [Mass/Vol] 3.6 g/dL 2.9-4.4 [facility] Albumin/Protein.total in 24 hour Urine by ElectrophoresisOrdered By: Brook Huddleston on 10-08-2023 Albumin Elph (24H U) [Mass fraction] 47.1 % . [facility] Basophils Auto (Bld) [#/Vol] Ordered By: Brook Huddleston on 10-08-2023 Basophils (Bld) [#/Vol] 0.0 10*3/uL 0.0-0.2 [facility] Basophils/100 WBC Auto (Bld) Ordered By: Brook Huddleston on 10-08-2023 Basophils/100 WBC (Bld) 0.2 % . [facility] Eosinophils Auto (Bld) [#/Vo l]Ordered By: Brook Huddleston on 10-08-2023 Eosinophils (Bld) [#/Vol] 0.4 10*3/uL 0.0-0.45 [facility] Eosinophils/100 WBC Auto (Bl d)Ordered By: Brook Huddleston on 10-08-2023 Eosinophils/100 WBC (Bld) 6.1 % . [facility] Ferritin [Mass/volume] in Se rum or PlasmaOrdered By: Brook Huddleston on 10-08-2023 Ferritin [Mass/Vol] 175.4 ng/mL 23.9-336.2 [facility] Ferritin [Mass/Vol] Ferritin [Mass/volum e] in Serum or Plasma 23.9-336.2 [facility] Gamma globulin/Protein.total in 24 hour Urine by ElectrophoresisOrdered By: Brook Huddleston on 10-08-2023 Gamma globulin Elph (24H U) [Mass fraction] 13.6 % . [facility] IgA [Mass/volume] in Serum o r PlasmaOrdered By: Brook Huddleston on 10-08-2023 IgA [Mass/Vol] 165 mg/dL 61-437 [facility] IgG [Mass/volume] in Serum o r PlasmaOrdered By: Brook Huddleston on 10-08-2023 IgG [Mass/Vol] 881 mg/dL 603-1613 [facility] IgM [Mass/volume] in Serum o r PlasmaOrdered By: Brook Huddleston on 10-08-2023 IgM [Mass/Vol] 63 mg/dL 15-143 [facility] Comment on above: Performed at: [employer] [facility] [employer] [address] [id number] Director: Melchor Agrawal PhD, Phone: [phone] Immunoglobulin light chains. kappa.free [Mass/volume] in SerumOrdered By: Brook Huddleston on 10-08-2023 Immunoglobulin light chains.kappa.free (S) [Mass/Vol] 44.9 mg/L 3.3-19.4 [facility] Immunoglobulin light chains. kappa.free/Immunoglobulin light chains.lambda.free [MassOrdered By: Brook Huddleston on 10-08-2023 Immunoglobulin light chains.kappa.free/Immun oglobulin light chains.lambda.free (S) [Mass ratio] 1.61 0.26-1.65 [facility] Comment on above: Performed at: [employer] [address] [id number] Director: Melchor Agrawal PhD, Phone: [phone] Immunoglobulin light chains. lambda.free [Mass/volume] in Serum or PlasmaOrdered By: Brook Huddleston on 10-08-2023 Immunoglobulin light chains.lambda.free [Mass/Vol] 27.9 mg/L 5.7-26.3 [facility] Iron [Mass/volume] in Serum or PlasmaOrdered By: Brook Huddleston on 10-08-2023 Iron [Mass/Vol] 82 ug/dL 50-212 [facility] Iron [Mass/Vol] Iron [Mass/volume] i n Serum or Plasma 50-212 [facility] Iron binding capacity [Mass/ volume] in Serum or PlasmaOrdered By: Brook Huddleston on 10-08-2023 Iron binding capacity [Mass/Vol] 235 ug/dL Low 255-450 [facility] Iron saturation [Mass Fracti on] in Serum or PlasmaOrdered By: Brook Huddleston on 10-08-2023 Iron saturation [Mass fraction] 34.9 % 20-50 [facility] Lactate dehydrogenase [Enzym atic activity/volume] in Serum or Plasma by Lactate to pyOrdered By: Brook Huddleston on 10-08-2023 LDH Lactate to pyruvate reaction [Catalytic activity/Vol] 150 U/L 140-271 [facility] Lymphocytes Auto (Bld) [#/Vo l]Ordered By: Brook Huddleston on 10-08-2023 Lymphocytes (Bld) [#/Vol] 0.9 10*3/uL 1.00-4.8 [facility] Lymphocytes/100 WBC Auto (Bl d)Ordered By: Brook Huddleston on 10-08-2023 Lymphocytes/100 WBC (Bld) 13.1 % . [facility] Monocytes Auto (Bld) [#/Vol] Ordered By: Brook Huddleston on 10-08-2023 Monocytes (Bld) [#/Vol] 0.3 10*3/uL 0.0-0.8 [facility] Monocytes/100 WBC Auto (Bld) Ordered By: Brook Huddleston on 10-08-2023 Monocytes/100 WBC (Bld) 4.5 % . [facility] Neutrophils Auto (Bld) [#/Vo l]Ordered By: Brook Huddleston on 10-08-2023 Neutrophils (Bld) [#/Vol] 5.0 10*3/uL 1.8-7.7 [facility] Neutrophils/100 WBC Auto (Bl d)Ordered By: Brook Huddleston on 10-08-2023 Neutrophils/100 WBC (Bld) 76.1 % . [facility] No Panel InformationOrdered By: Brook Huddleston on 10-08-2023 Protein Electrophoresis M-Anselmo Not observed g/dL Not Observed [facility] Protein Electrophoresis Note See comment . [facility] Comment on above: Protein electrophore sis scan will follow via computer,mail, or revenue stamp cutter delivery.Performed at: [address] [id number] Director: Melchor Agrawal PhD, Phone: [phone] Urine Random Prot Electrophor Note See comment . [facility] Comment on above: Protein electrophore sis scan will follow via computer,mail, or revenue stamp cutter delivery. Nucleated erythrocytes [Pres ence] in Blood by Automated countOrdered By: Brook Huddleston on 10-08-2023 Nucleated RBC Auto Ql (Bld) 0.0 /100{WBC} 0-0.5 [facility] Protein [Mass/volume] in Ser um or PlasmaOrdered By: Brook Huddleston on 10-08-2023 Protein [Mass/Vol] 6.5 g/dL 6.0-8.5 [facility] Protein [Mass/volume] in Uri neOrdered By: Brook Huddleston on 10-08-2023 Protein (U) [Mass/Vol] 302.5 mg/dL Not Estab. F [facility] Comment on above: Results confirmed on dilution. Protein.monoclonal/Protein.t otal in 24 hour Urine by ElectrophoresisOrdered By: Brook Huddleston on 10-08-2023 Protein.monoclonal Elph (24H U) [Mass fraction] Comment: % Not Observed [facility] Comment on above: UPE shows an asymmet rical gamma. Serum globulin measurement ( mass/volume)Ordered By: Brook Huddleston on 10-08-2023 Globulin (S) [Mass/Vol] 2.9 g/dL 2.2-3.[address] [facility] Serum or plasma albumin/glob ulin mass ratioOrdered By: Brook Huddleston on 10-08-2023 Albumin/Globulin [Mass ratio] 1.2 {ratio} 0.7-1.7 [facility] Serum or plasma alpha 1 glob ulin measurement by electrophoresis (mass/volume)Ordered By: Brook Huddleston on 10-08-2023 Alpha 1 globulin Elph [Mass/Vol] 0.3 g/dL 0.0-0.4 [facility] Serum or plasma alpha 2 glob ulin measurement by electrophoresis (mass/volume)Ordered By: Brook Huddleston on 10-08-2023 Alpha 2 globulin Elph [Mass/Vol] 0.9 g/dL 0.4-1.0 [facility] Serum or plasma beta globuli n measurement by electrophoresis (mass/volume)Ordered By: Brook Huddleston on 10-08-2023 Beta globulin Elph [Mass/Vol] 0.8 g/dL 0.7-1.3 [facility] Serum or plasma gamma globul in measurement by electrophoresis (mass/volume)Ordered By: Brook Huddleston on 10-08-2023 Gamma globulin Elph [Mass/Vol] 0.9 g/dL 0.4-1.8 [facility] Serum or plasma iron binding capacity measurement (mass/volume)Ordered By: Brook Huddleston on 10-08-2023 Iron binding capacity [Mass/Vol] Iron binding capacity [Mass/volume] in Serum or Plasma Low 255-450 [facility] Serum or plasma iron saturat ion measurement (mass fraction)Ordered By: Brook Huddleston on 10-08-2023 Iron saturation [Mass fraction] Iron saturation [Mass Fraction] in Serum or Plasma 20-50 [facility] Serum or plasma methylmalona te measurement (moles/volume)Ordered By: Brook Huddleston on 10-08-2023 Methylmalonate [Moles/Vol] 402 nmol/L 0-378 [facility] Comment on above: This test was develo ped and its performance characteristicsdetermined by [employer]. It has not been cleared orapproved by the Food and Drug Administration.Performed at: [address] [id number] Director: Aliya Curtis MD, Phone: [phone] Transferrin [Mass/volume] in Serum or PlasmaOrdered By: Brook Huddleston on 10-08-2023 Transferrin [Mass/Vol] 168 mg/dL Low 203-362 [facility] Transferrin [Mass/Vol] Transferrin [Mass /volume] in Serum or Plasma Low 203-362 [facility] Urine alpha 1 globulin/total protein by electrophoresisOrdered By: Brook Huddleston on 10-08-2023 Alpha 1 globulin Elph (U) [Mass fraction] 4.4 % . [facility] Urine alpha 2 globulin/total protein ratio by electrophoresisOrdered By: Brook Huddleston on 10-08-2023 Alpha 2 globulin Elph (U) [Mass fraction] 11.8 % . [facility] Urine beta globulin measurem ent by electrophoresis (mass/volume)Ordered By: Brook Huddleston on 10-08-2023 Beta globulin Elph (U) [Mass/Vol] 23.1 % . [facility] WBC Auto (Bld) [#/Vol]Ordere d By: Brook Huddleston on 10-08-2023 WBC (Bld) [#/Vol] 6.6 10*3/uL 4.1-10.5 [facility] Alanine aminotransferase [En zymatic activity/volume] in Serum or PlasmaOrdered By: Brook Huddleston on 09-28-2023 ALT [Catalytic activity/Vol] 20 U/L 7-52 [facility] Albumin [Mass/volume] in Ser um or Plasma by Bromocresol green (BCG) dye binding methoOrdered By: Brook Huddleston on 09-28-2023 Albumin BCG dye [Mass/Vol] 3.8 g/dL 3.5-5.7 [facility] Alkaline phosphatase [Enzyma tic activity/volume] in Serum or PlasmaOrdered By: Brook Huddleston on 09-28-2023 ALP [Catalytic activity/Vol] 87 U/L 34-104 [facility] Aspartate aminotransferase [ Enzymatic activity/volume] in Serum or PlasmaOrdered By: Brook Huddleston on 09-28-2023 AST [Catalytic activity/Vol] 17 U/L 13-39 [facility] Basophils Auto (Bld) [#/Vol] Ordered By: Brook Huddleston on 09-28-2023 Basophils (Bld) [#/Vol] 0.0 10*3/uL 0.0-0.2 [facility] Basophils/100 WBC Auto (Bld) Ordered By: Brook Huddleston on 09-28-2023 Basophils/100 WBC (Bld) 0.3 % . [facility] Bilirubin.total [Mass/volume ] in Serum or PlasmaOrdered By: Brook Huddleston on 09-28-2023 Bilirubin [Mass/Vol] 0.4 mg/dL 0.3-1.0 [facility] CBC W Auto Differential pane l (Bld)on 09-28-2023 Basophils (Bld) [#/Vol] 0.0 10*3/uL 0.0 - 0.2 10*3/uL [facility] Basophils/100 WBC Manual cnt (Syn fld) 0.3 % . [facility] Eosinophils (Bld) [#/Vol] 0.2 10*3/uL 0.0 - 0.45 10*3/uL [facility] Eosinophils/100 WBC Manual cnt (Syn fld) 3.7 % . [facility] Erythrocyte distribution width (RBC) [Ratio] 16.9 % High 12.0 - 14.8 % [facility] Hematocrit (Bld) [Volume fraction] 28.8 % Low 38.8 - 50.0 % [facility] Hemoglobin (Bld) [Mass/Vol] 9.7 g/dL Low 13.0 - 17.0 g/dL [facility] Interpretation and review of laboratory results Abnormal [facility] Lymphocytes (Bld) [#/Vol] 0.9 10*3/uL Low 1.00 - 4.8 10*3/uL [facility] Lymphocytes/100 WBC Manual cnt (Syn fld) 14.4 % . [facility] MCH (RBC) [Entitic mass] 36.5 pg High 27.5 - 35.2 pg [facility] MCHC (RBC) [Mass/Vol] 33.8 g/dL 32.5 - 35.6 g/dL [facility] MCV (RBC) [Entitic vol] 107.9 fL High 83.5 - 101 fL [facility] Monocytes (Bld) [#/Vol] 0.4 10*3/uL 0.0 - 0.8 10*3/uL [facility] Monocytes+Macrophages/1 00 WBC Manual cnt (Syn fld) 5.9 % . [facility] Neutrophils (Bld) [#/Vol] 4.9 10*3/uL 1.8 - 7.7 10*3/uL [facility] Neutrophils/100 WBC Manual cnt (Syn fld) 75.7 % . [facility] NRBC 0.1 /100{WBC} 0 - 0.5 /100{WBC} [facility] Platelet mean volume (Bld) [Entitic vol] 7.9 fL 6.6 - 10.1 fL [facility] Platelets (Bld) [#/Vol] 167 10*3/uL 150 - 450 10*3/uL [facility] RBC LM.HPF (Urine sed) [#/Area] 2.67 /[HPF] Low 3.90 - 5.60 [facility] WBC (Bld) [#/Vol] 6.5 10*3/uL 4.1 - 10.5 10*3/uL [facility] WBC LM.HPF (Urine sed) [#/Area] 6.5 10*3/uL 4.1 - 10.5 10*3/uL [facility] Calcium [Mass/volume] in Ser um or PlasmaOrdered By: Brook Huddleston on 09-28-2023 Calcium [Mass/Vol] 8.8 mg/dL 8.6-10.3 [facility] Carbon dioxide, total [Moles /volume] in Serum or PlasmaOrdered By: Brook Huddleston on 09-28-2023 CO2 [Moles/Vol] 25.0 mmol/L 21.0-31.0 [facility] Chloride [Moles/volume] in S valeria or PlasmaOrdered By: Brook Huddleston on 09-28-2023 Chloride [Moles/Vol] 109 mmol/L 98-107 [facility] Comprehensive metabolic pane mana 09-28-2023 Albumin [Mass/Vol] 3.8 g/dL 3.5 - 5.7 g/dL [facility] Albumin/Globulin [Mass ratio] 1.6 {ratio} [facility] ALP [Catalytic activity/Vol] 87 U/L 34 - 104 U/L [facility] ALT [Catalytic activity/Vol] 20 U/L 7 - 52 U/L [facility] Anion gap [Moles/Vol] 10.4 mmol/L 6.0 - 15.0 [facility] AST [Catalytic activity/Vol] 17 U/L 13 - 39 U/L [facility] Bilirubin [Mass/Vol] 0.4 mg/dL 0.3 - 1 .0 mg/dL [facility] Calcium [Mass/Vol] 8.8 mg/dL 8.6 - 10. 3 mg/dL [facility] Chloride [Moles/Vol] 109 mmol/L High 98 - 10 7 mmol/L [facility] CO2 [Moles/Vol] 25.0 mmol/L 21.0 - 31.0 mmol/L [facility] Creatinine (U) [Mass/Vol] 1.74 mg/dL High 0.70 - 1.30 mg/dL [facility] CREATININE CLR CALC PHARMACY 40.89 [facility] GFR/1.73 sq M.predicted MDRD (S/P/Bld) [Vol rate/Area] 39.632 mL/min/{1.73_m2} [facility] Globulin (S) [Mass/Vol] 2.4 g/dL [facility] Glucose [Mass/Vol] 174 mg/dL High 70 - 100 mg/dL [facility] Comment on above: Random Glucose Refer ence Range is dependent on time and content of last meal. Glucose of more than 200 mg/dL in a nonstressed, ambulatory subject supports the diagnosis of Diabetes Mellitus. ADA recommended reference range Interpretation and review of laboratory results Abnormal [facility] Potassium [Moles/Vol] 4.4 mmol/L 3.5 - 5.1 mmol/L [facility] Protein [Mass/Vol] 6.2 g/dL Low 6.4 - 8.9 g/dL [facility] Sodium [Moles/Vol] 140 mmol/L 136 - 145 mmol/L [facility] Urea nitrogen [Mass/Vol] 28 mg/dL High 7 - 25 mg/dL [facility] Creatinine [Mass/volume] in Serum or PlasmaOrdered By: Brook Huddleston on 09-28-2023 Creatinine [Mass/Vol] 1.74 mg/dL 0.70-1.30 [facility] Eosinophils Auto (Bld) [#/Vo l]Ordered By: Brook Huddleston on 09-28-2023 Eosinophils (Bld) [#/Vol] 0.2 10*3/uL 0.0-0.45 [facility] Eosinophils/100 WBC Auto (Bl d)Ordered By: Brook Huddleston on 09-28-2023 Eosinophils/100 WBC (Bld) 3.7 % . [facility] Erythrocyte distribution wid th Auto (RBC) [Ratio]Ordered By: Brook Huddleston on 09-28-2023 Erythrocyte distribution width (RBC) [Ratio] 16.9 % 12.0-14.8 [facility] Globulin Calc (S) [Mass/Vol] Ordered By: Brook Huddleston on 09-28-2023 Globulin (S) [Mass/Vol] 2.4 g/dL [facility] Glucose [Mass/volume] in Ser um or PlasmaOrdered By: Brook Huddleston on 09-28-2023 Glucose [Mass/Vol] 174 mg/dL 70-100 [facility] Comment on above: ADA recommended refe rence rangeRandom Glucose Reference Range is dependent on time and content of last meal. Glucose of more than 200 mg/dL in a nonstressed, ambulatory subject supports the diagnosis of Diabetes Mellitus. Hematocrit Auto (Bld) [Volum e fraction]Ordered By: Brook Huddleston on 09-28-2023 Hematocrit (Bld) [Volume fraction] 28.8 % 38.8-50.0 [facility] Hemoglobin [Mass/volume] in BloodOrdered By: Brook Huddleston on 09-28-2023 Hemoglobin (Bld) [Mass/Vol] 9.7 g/dL 13.0-17.0 [facility] Leukocytes [#/volume] correc lizbet for nucleated erythrocytes in Blood by Automated counOrdered By: Brook Huddleston on 09-28-2023 WBC corrected for nucl RBC Auto (Bld) [#/Vol] 6.5 10*3/uL 4.1-10.5 [facility] Lymphocytes Auto (Bld) [#/Vo l]Ordered By: Brook Huddleston on 09-28-2023 Lymphocytes (Bld) [#/Vol] 0.9 10*3/uL 1.00-4.8 [facility] Lymphocytes/100 WBC Auto (Bl d)Ordered By: Brook Huddleston on 09-28-2023 Lymphocytes/100 WBC (Bld) 14.4 % . [facility] MCH Auto (RBC) [Entitic mass ]Ordered By: Brook Huddleston on 09-28-2023 MCH (RBC) [Entitic mass] 36.5 pg 27.5-35.2 [facility] MCHC Auto (RBC) [Mass/Vol]Or dered By: Brook Huddleston on 09-28-2023 MCHC (RBC) [Mass/Vol] 33.8 g/dL 32.5-35.6 [facility] MCV Auto (RBC) [Entitic vol] Ordered By: Brook Huddleston on 09-28-2023 MCV (RBC) [Entitic vol] 107.9 fL 83.5-101 [facility] Monocytes Auto (Bld) [#/Vol] Ordered By: Brook Huddleston on 09-28-2023 Monocytes (Bld) [#/Vol] 0.4 10*3/uL 0.0-0.8 [facility] Monocytes/100 WBC Auto (Bld) Ordered By: Brook Huddleston on 09-28-2023 Monocytes/100 WBC (Bld) 5.9 % . [facility] Neutrophils Auto (Bld) [#/Vo l]Ordered By: Brook Huddleston on 09-28-2023 Neutrophils (Bld) [#/Vol] 4.9 10*3/uL 1.8-7.7 [facility] Neutrophils/100 WBC Auto (Bl d)Ordered By: Brook Huddleston on 09-28-2023 Neutrophils/100 WBC (Bld) 75.7 % . [facility] No Panel InformationOrdered By: Brook Huddleston on 09-28-2023 Estimated GFR (CKD-EPI) 39.632 mL/Min [facility] Creatinine Clearance (Chem 40.89 [facility] Nucleated erythrocytes [Pres ence] in Blood by Automated countOrdered By: Brook Huddleston on 09-28-2023 Nucleated RBC Auto Ql (Bld) 0.1 /100{WBC} 0-0.5 [facility] Platelet mean volume Auto (B ld) [Entitic vol]Ordered By: Brook Huddleston on 09-28-2023 Platelet mean volume (Bld) [Entitic vol] 7.9 fL 6.6-10.1 [facility] Platelets Auto (Bld) [#/Vol] Ordered By: Brook Huddleston on 09-28-2023 Platelets (Bld) [#/Vol] 167 10*3/uL 150-450 [facility] Potassium [Moles/volume] in Serum or PlasmaOrdered By: Brook Huddleston on 09-28-2023 Potassium [Moles/Vol] 4.4 mmol/L 3.5-5.1 [facility] Protein [Mass/volume] in Ser um or PlasmaOrdered By: Brook Huddleston on 09-28-2023 Protein [Mass/Vol] 6.2 g/dL 6.4-8.9 [facility] RBC Auto (Bld) [#/Vol]Ordere d By: Brook Huddleston on 09-28-2023 RBC (Bld) [#/Vol] 2.67 10*6/uL 3.90-5.60 [facility] Serum or plasma albumin/glob ulin mass ratioOrdered By: Brook Huddleston on 09-28-2023 Albumin/Globulin [Mass ratio] 1.6 {ratio} [facility] Serum or plasma anion gap de terminationOrdered By: Brook Huddleston on 09-28-2023 Anion gap [Moles/Vol] 10.4 mmol/L 6.0-15.0 [facility] Sodium [Moles/volume] in Ser um or PlasmaOrdered By: Brook Huddleston on 09-28-2023 Sodium [Moles/Vol] 140 mmol/L 136-145 [facility] Urea nitrogen [Mass/volume] in Serum or PlasmaOrdered By: Brook Huddleston on 09-28-2023 Urea nitrogen [Mass/Vol] 28 mg/dL 7-25 [facility] WBC Auto (Bld) [#/Vol]Ordere d By: Brook Huddleston on 09-28-2023 WBC (Bld) [#/Vol] 6.5 10*3/uL 4.1-10.5 [facility] Lab Reportson 09-24-2023 Lab Reports [id number]#1.00TIFF Normal [facility] Lab Reports [id number]#1.00TIFF Normal [facility] Operative Reporton Operative Report [id number]#1.00TIFF Normal [facility] Lab Reportson 09-22-2023 Lab Reports [id number]#1.00TIFF Normal [facility] Lab Reports [id number]#1.00TIFF Normal [facility] Consent for Procedure/Surger yon 09-18-2023 Consent for Procedure/Surgery [id number]#1.00TIFF Normal [facility] Lab Reportson 09-14-2023 Lab Reports [id number]#1.00TIFF Normal [facility] Lab Reports [id number]#1.00TIFF [facility] Lab Reports [id number] Normal [facility] Lab Reports [id number]#1.00TIFF [facility] RAD - MISCon 09-10-2023 RAD - MISC [id number]#1.00TIFF Normal [facility] Lab Reportson 09-09-2023 Lab Reports [id number]#1.00TIFF [facility] C Urineon 08-15-2023 Bacteria identified Cx Nom (U) Microbiology PROCEDURE: Urine Culture [R1] SOURCE: U Cath BODY SITE: COLLECTED DATE/TIME: 08/11/2023 11:05 EST RECEIVED DATE/TIME: 08/11/2023 12:44 EST START DATE/TIME: 08/11/2023 12:44 EST FREE TEXT SOURCE: Diego RICKS, Orquidea Cortez MD, Orquidea Taylor FINAL REPORTS Final Report [] Verified Date/Time: 08/15/2023 10:39 EST 10,000 cfu/ml Jessica albicans Presumptive isolated. 400 cfu/ml Stenotrophomonas maltophilia isolated. SUSCEPTIBILITY RESULTS _ LEGEND: S=Susceptible, N/R=Not Reported, Blank=Data not available, or drug not advisable or tested, I=Intermediate, ESBL=Extended spectrum beta-lactamase, R=Resistant, TFG=Thymidine-dependent strain, RADHA=Beta-lactamase positive, DEEPA=mcg/m;(mg/L), S*=Predicted susceptible interp, R*=Predicted resistant interp Stemal Antibiotic DEEPA Dilutn DEEPA Interp Levofloxacin >4 R Trimethoprim/ <=2/38 S Sulfa Performing Locations R1: This test was performed at: [facility], [address] [place] [address], [id number] , , [facility] Comment on above: Performed By: #### [id number] #### [facility] [address] [place] [id number] Ambulatory Visit Summaryon 1 09-22-2022 Ambulatory Visit Summary PATSY CUNNINGHAM :1945 Visit Date:07/22/2023 Ambulatory Visit Instructions Your Diagnosis Hydroureteronephrosis Ureteral stricture Noncompliant bladder Prostate cancer BPH with urinary obstruction Incomplete bladder emptying OAB (overactive bladder) Family history of prostate cancer in father Kidney stones Your Care Team Attending Physician - Diego RICKS, Orquidea Taylor Primary Care Physician - HELEN HEATH MD This Is Your Medications List nitrofurantoin (Macrobid 100 mg Cap) Contact prescribing physician if questions or concerns acyclovir (Zovirax 400 mg Tab) aspirin (aspirin 81 mg Chew Tab) atorvastatin (atorvastatin 20 mg Tab) bifidobacterium-lactobacil huber (Probiotic + Colostrum) cholecalciferol (Vitamin D3 2000 [...] 10:30 AM EST Where: [facility] Patient Educationon 07-22-20 Patient Education Urology Ureteral Stent Implantation, Care [...] these instructions at home: Medicines ? Take akih-cjy-fhoozal and prescription medicines only as told by [...] to prevent or treat constipation: ? Take zacu-vpa-yddamvw or prescription medicines. ? Eat foods that [...] for up to 1 week. ? Take smnw-bax-lmuhkzr and prescription medicines only as told by [...] provider. Document Revised: 09/08/2022 Document Reviewed: 09/08/2022 [employer] Patient Education ? 2022 [employer] Suprapubic Catheter Replacement Suprapubic catheter replacement [...] (more content not included)... Normal [facility] Urology Office/Clinic Noteon 07-22-2023 Urology Office/Clinic Note [...] renal failure. He was referred to Dr. Jessica Feliciano for further evaluation regarding recommendations of [...] week exchanges. Exchanged today without difficulty. Ordered: [id number] Change Cystostomy Tube Urology Procedure Order Urology Procedure Order 2. OAB (overactive bladder) (N32.81: Overactive bladder) Baseline very severe lower urinary tract symptoms. No improve (more content not included)... Normal [facility] Comment on above: Result Comment: Elec tronically Signed By: Diego RICKS, Orquidea M.\.br\Date and Time Signed: 07/22/23 18:39 EST\.br\Electronically Co-Signed By: Cornelia De Leon\.br\Date and Time Co-Signed: 07/22/23 10:16 EST RAD - MISCon 07-15-2023 RAD - MIS [id number]#1.00TIFF Normal [facility] Alanine aminotransferase [En zymatic activity/volume] in Serum or PlasmaOrdered By: Brook Huddleston on 07-14-2023 ALT [Catalytic activity/Vol] 14 U/L 7-52 [facility] Albumin [Mass/volume] in Ser um or Plasma by Bromocresol green (BCG) dye binding methoOrdered By: Brook Huddleston on 07-14-2023 Albumin BCG dye [Mass/Vol] 3.9 g/dL 3.5-5.7 [facility] Alkaline phosphatase [Enzyma tic activity/volume] in Serum or PlasmaOrdered By: Brook Huddleston on 07-14-2023 ALP [Catalytic activity/Vol] 96 U/L 34-104 [facility] Aspartate aminotransferase [ Enzymatic activity/volume] in Serum or PlasmaOrdered By: Brook Huddleston on 07-14-2023 AST [Catalytic activity/Vol] 17 U/L 13-39 [facility] Basophils Auto (Bld) [#/Vol] Ordered By: Brook Huddleston on 07-14-2023 Basophils (Bld) [#/Vol] 0.0 10*3/uL 0.0-0.2 [facility] Basophils/100 WBC Auto (Bld) Ordered By: Brook Huddleston on 07-14-2023 Basophils/100 WBC (Bld) 0.3 % . [facility] Bilirubin.total [Mass/volume ] in Serum or PlasmaOrdered By: Brook Huddleston on 07-14-2023 Bilirubin [Mass/Vol] 0.4 mg/dL 0.3-1.0 [facility] Calcium [Mass/volume] in Ser um or PlasmaOrdered By: Brook Huddleston on 07-14-2023 Calcium [Mass/Vol] 8.8 mg/dL 8.6-10.3 [facility] Carbon dioxide, total [Moles /volume] in Serum or PlasmaOrdered By: Brook Huddleston on 07-14-2023 CO2 [Moles/Vol] 25.2 mmol/L 21.0-31.0 [facility] Chloride [Moles/volume] in S valeria or PlasmaOrdered By: Brook Huddleston on 07-14-2023 Chloride [Moles/Vol] 109 mmol/L 98-107 [facility] Creatinine [Mass/volume] in Serum or PlasmaOrdered By: Brook Huddleston on 07-14-2023 Creatinine [Mass/Vol] 1.74 mg/dL 0.70-1.30 [facility] Eosinophils Auto (Bld) [#/Vo l]Ordered By: Brook Huddleston on 07-14-2023 Eosinophils (Bld) [#/Vol] 0.3 10*3/uL 0.0-0.45 [facility] Eosinophils/100 WBC Auto (Bl d)Ordered By: Brook Huddleston on 07-14-2023 Eosinophils/100 WBC (Bld) 3.4 % . [facility] Erythrocyte distribution wid th Auto (RBC) [Ratio]Ordered By: Brook Huddleston on 07-14-2023 Erythrocyte distribution width (RBC) [Ratio] 16.5 % 12.0-14.8 [facility] Globulin Calc (S) [Mass/Vol] Ordered By: Brook Huddleston on 07-14-2023 Globulin (S) [Mass/Vol] 2.2 g/dL [facility] Glucose [Mass/volume] in Ser um or PlasmaOrdered By: Brook Huddleston on 07-14-2023 Glucose [Mass/Vol] 70 mg/dL 70-100 [facility] Comment on above: ADA recommended refe rence rangeRandom Glucose Reference Range is dependent on time and content of last meal. Glucose of more than 200 mg/dL in a nonstressed, ambulatory subject supports the diagnosis of Diabetes Mellitus. Hematocrit Auto (Bld) [Volum e fraction]Ordered By: Brook Huddleston on 07-14-2023 Hematocrit (Bld) [Volume fraction] 28.7 % 38.8-50.0 [facility] Hemoglobin [Mass/volume] in BloodOrdered By: Brook Huddleston on 07-14-2023 Hemoglobin (Bld) [Mass/Vol] 9.6 g/dL 13.0-17.0 [facility] Leukocytes [#/volume] correc lizbet for nucleated erythrocytes in Blood by Automated counOrdered By: Brook Huddleston on 07-14-2023 WBC corrected for nucl RBC Auto (Bld) [#/Vol] 7.9 10*3/uL 4.1-10.5 [facility] Lymphocytes Auto (Bld) [#/Vo l]Ordered By: Brook Huddleston on 07-14-2023 Lymphocytes (Bld) [#/Vol] 1.1 10*3/uL 1.00-4.8 [facility] Lymphocytes/100 WBC Auto (Bl d)Ordered By: Brook Huddleston on 07-14-2023 Lymphocytes/100 WBC (Bld) 13.4 % . [facility] MCH Auto (RBC) [Entitic mass ]Ordered By: Brook Huddleston on 07-14-2023 MCH (RBC) [Entitic mass] 36.1 pg 27.5-35.2 [facility] MCHC Auto (RBC) [Mass/Vol]Or dered By: Brook Huddleston on 07-14-2023 MCHC (RBC) [Mass/Vol] 33.5 g/dL 32.5-35.6 [facility] MCV Auto (RBC) [Entitic vol] Ordered By: Brook Huddleston on 07-14-2023 MCV (RBC) [Entitic vol] 107.8 fL 83.5-101 [facility] Monocytes Auto (Bld) [#/Vol] Ordered By: Brook Huddleston on 07-14-2023 Monocytes (Bld) [#/Vol] 0.3 10*3/uL 0.0-0.8 [facility] Monocytes/100 WBC Auto (Bld) Ordered By: Brook Huddleston on 07-14-2023 Monocytes/100 WBC (Bld) 4.1 % . [facility] Neutrophils Auto (Bld) [#/Vo l]Ordered By: Brook Huddleston on 07-14-2023 Neutrophils (Bld) [#/Vol] 6.2 10*3/uL 1.8-7.7 [facility] Neutrophils/100 WBC Auto (Bl d)Ordered By: Brook Huddleston on 07-14-2023 Neutrophils/100 WBC (Bld) 78.8 % . [facility] No Panel InformationOrdered By: Brook Huddleston on 07-14-2023 Estimated GFR (CKD-EPI) 39.632 mL/Min [facility] Creatinine Clearance (Chem 40.89 [facility] Nucleated erythrocytes [Pres ence] in Blood by Automated countOrdered By: Brook Huddleston on 07-14-2023 Nucleated RBC Auto Ql (Bld) 0.1 /100{WBC} 0-0.5 [facility] Platelet mean volume Auto (B ld) [Entitic vol]Ordered By: Brook Huddleston on 07-14-2023 Platelet mean volume (Bld) [Entitic vol] 8.4 fL 6.6-10.1 [facility] Platelets Auto (Bld) [#/Vol] Ordered By: Brook Huddleston on 07-14-2023 Platelets (Bld) [#/Vol] 156 10*3/uL 150-450 [facility] Potassium [Moles/volume] in Serum or PlasmaOrdered By: Brook Huddleston on 07-14-2023 Potassium [Moles/Vol] 4.0 mmol/L 3.5-5.1 [facility] Protein [Mass/volume] in Ser um or PlasmaOrdered By: Brook Huddleston on 07-14-2023 Protein [Mass/Vol] 6.1 g/dL 6.4-8.9 [facility] RBC Auto (Bld) [#/Vol]Ordere d By: Brook Huddleston on 07-14-2023 RBC (Bld) [#/Vol] 2.66 10*6/uL 3.90-5.60 [facility] Serum or plasma albumin/glob ulin mass ratioOrdered By: Brook Huddleston on 07-14-2023 Albumin/Globulin [Mass ratio] 1.8 {ratio} [facility] Serum or plasma anion gap de terminationOrdered By: Brook Huddleston on 07-14-2023 Anion gap [Moles/Vol] 8.8 mmol/L 6.0-15.0 [facility] Sodium [Moles/volume] in Ser um or PlasmaOrdered By: Brook Huddleston on 07-14-2023 Sodium [Moles/Vol] 139 mmol/L 136-145 [facility] Urea nitrogen [Mass/volume] in Serum or PlasmaOrdered By: Brook Huddleston on 07-14-2023 Urea nitrogen [Mass/Vol] 24 mg/dL 7-25 [facility] WBC Auto (Bld) [#/Vol]Ordere d By: Brook Huddleston on 07-14-2023 WBC (Bld) [#/Vol] 7.9 10*3/uL 4.1-10.5 [facility] C Urineon 07-04-2023 Bacteria identified Cx Nom (U) Microbiology PROCEDURE: Urine Culture [R1] SOURCE: U Cath BODY SITE: COLLECTED DATE/TIME: 07/02/2023 11:40 EST RECEIVED DATE/TIME: 07/02/2023 14:16 EST START DATE/TIME: 07/02/2023 14:16 EST FREE TEXT SOURCE: halle Cortez MD, Orquidea Cortez MD, Orquidea Taylor FINAL REPORTS Final Report [] Verified Date/Time: 07/04/2023 09:25 EST 10,000 cfu/ml Staphylococcus epidermidis SUSCEPTIBILITY RESULTS _ LEGEND: S=Susceptible, N/R=Not Reported, Blank=Data not available, or drug not advisable or tested, I=Intermediate, ESBL=Extended spectrum beta-lactamase, R=Resistant, TFG=Thymidine-dependent strain, RADHA=Beta-lactamase positive, DEEPA=mcg/m;(mg/L), S*=Predicted susceptible interp, R*=Predicted resistant interp Staepi [...] Locations R1: This test was performed at: [facility], [address] [place] [address], [facility]- , , [facility] Comment on above: Performed By: #### [id number] #### [facility] [address] [place] [address] Ambulatory Visit Summaryon 1 09-01-2022 Ambulatory Visit Summary PATSY CUNNINGHAM :1945 Visit Date:07/02/2023 Ambulatory Visit Instructions Your Diagnosis UTI (urinary tract infection) Your Care Team Attending Physician - Diego RICKS, Orquidea Taylor Primary Care Physician - DON RICKS, HELEN This Is Your Medications List acyclovir (Zovirax 400 mg Tab) aspirin (aspirin 81 mg Chew Tab) atorvastatin (atorvastatin 20 mg Tab) bifidobacterium-lactobacil huber (Probiotic + Colostrum) cholecalciferol (Vitamin D3 2000 [...] Thursday 9:15 AM EST With: Diego RICKS, Orquidea Taylor Where: [facility] Alanine aminotransferase [En zymatic activity/volume] in Serum or PlasmaOrdered By: Price Crain on 06-23-2023 ALT [Catalytic activity/Vol] 16 U/L 7-52 [facility] Albumin [Mass/volume] in Ser um or Plasma by Bromocresol green (BCG) dye binding methoOrdered By: Price Crain on 06-23-2023 Albumin BCG dye [Mass/Vol] 3.7 g/dL 3.5-5.7 [facility] Alkaline phosphatase [Enzyma tic activity/volume] in Serum or PlasmaOrdered By: Price Crain 06-23-2023 ALP [Catalytic activity/Vol] 102 U/L 34-104 [facility] Aspartate aminotransferase [ Enzymatic activity/volume] in Serum or PlasmaOrdered By: Price Crain 06-23-2023 AST [Catalytic activity/Vol] 16 U/L 13-39 [facility] Bilirubin.total [Mass/volume ] in Serum or PlasmaOrdered By: Price Crain on 06-23-2023 Bilirubin [Mass/Vol] 0.5 mg/dL 0.3-1.0 [facility] Calcium [Mass/volume] in Ser um or PlasmaOrdered By: Price Crain on 06-23-2023 Calcium [Mass/Vol] 8.8 mg/dL 8.6-10.3 [facility] Carbon dioxide, total [Moles /volume] in Serum or PlasmaOrdered By: Price Crain on 06-23-2023 CO2 [Moles/Vol] 24.7 mmol/L 21.0-31.0 [facility] Chloride [Moles/volume] in S valeria or PlasmaOrdered By: Price Crain on 06-23-2023 Chloride [Moles/Vol] 109 mmol/L 98-107 [facility] Creatinine [Mass/volume] in Serum or PlasmaOrdered By: Price Crain on 06-23-2023 Creatinine [Mass/Vol] 1.69 mg/dL 0.70-1.30 [facility] Creatinine [Mass/volume] in UrineOrdered By: Price Crain on 06-23-2023 Creatinine (U) [Mass/Vol] 133.0 mg/dL 14.0-26.0 [facility] Erythrocyte distribution wid th Auto (RBC) [Ratio]Ordered By: Price Crain on 06-23-2023 Erythrocyte distribution width (RBC) [Ratio] 16.4 % 12.0-14.8 [facility] Globulin Calc (S) [Mass/Vol] Ordered By: Price Crain 06-23-2023 Globulin (S) [Mass/Vol] 2.3 g/dL [facility] Glucose [Mass/volume] in Ser um or PlasmaOrdered By: rPice Crain on 06-23-2023 Glucose [Mass/Vol] 117 mg/dL 70-100 [facility] Comment on above: ADA recommended refe rence rangeRandom Glucose Reference Range is dependent on time and content of last meal. Glucose of more than 200 mg/dL in a nonstressed, ambulatory subject supports the diagnosis of Diabetes Mellitus. Hematocrit Auto (Bld) [Volum e fraction]Ordered By: Price Crain on 06-23-2023 Hematocrit (Bld) [Volume fraction] 28.7 % 38.8-50.0 [facility] Hemoglobin [Mass/volume] in BloodOrdered By: Price Crain 06-23-2023 Hemoglobin (Bld) [Mass/Vol] 9.8 g/dL 13.0-17.0 [facility] Leukocytes [#/volume] correc lizbet for nucleated erythrocytes in Blood by Automated counOrdered By: Price Crain on 06-23-2023 WBC corrected for nucl RBC Auto (Bld) [#/Vol] 7.3 10*3/uL 4.1-10.5 [facility] MCH Auto (RBC) [Entitic mass ]Ordered By: Price Crain on 06-23-2023 MCH (RBC) [Entitic mass] 36.8 pg 27.5-35.2 [facility] MCHC Auto (RBC) [Mass/Vol]Or dered By: Price Crain on 06-23-2023 MCHC (RBC) [Mass/Vol] 34.1 g/dL 32.5-35.6 [facility] MCV Auto (RBC) [Entitic vol] Ordered By: Price Crain on 06-23-2023 MCV (RBC) [Entitic vol] 107.9 fL 83.5-101 [facility] Magnesium [Mass/volume] in S valeria or PlasmaOrdered By: Price Crain on 06-23-2023 Magnesium [Mass/Vol] 1.8 mg/dL 1.9-2.7 [facility] No Panel InformationOrdered By: Price Crain on 06-23-2023 Estimated GFR (CKD-EPI) 41.043 mL/Min [facility] Creatinine Clearance (Chem N/A [facility] Parathyrin.intact [Mass/volu me] in Serum or PlasmaOrdered By: Price Crain on 06-23-2023 Parathyrin.intact [Mass/Vol] 51.9 pg/mL 12 [facility] Phosphate [Mass/volume] in S valeria or PlasmaOrdered By: Price Crain on 06-23-2023 Phosphate [Mass/Vol] 2.9 mg/dL 2.5-4.5 [facility] Platelet mean volume Auto (B ld) [Entitic vol]Ordered By: Price Crain on 06-23-2023 Platelet mean volume (Bld) [Entitic vol] 8.5 fL 6.6-10.1 [facility] Platelets Auto (Bld) [#/Vol] Ordered By: Price Crain on 06-23-2023 Platelets (Bld) [#/Vol] 166 10*3/uL 150-450 [facility] Potassium [Moles/volume] in Serum or PlasmaOrdered By: Price Crain on 06-23-2023 Potassium [Moles/Vol] 4.4 mmol/L 3.5-5.1 [facility] Protein [Mass/volume] in Ser um or PlasmaOrdered By: Price Fords on 06-23-2023 Protein [Mass/Vol] 6.0 g/dL 6.4-8.9 [facility] Protein [Mass/volume] in Uri neOrdered By: Price Crain on 06-23-2023 Protein (U) [Mass/Vol] 377 mg/dL 0-9 [facility] RBC Auto (Bld) [#/Vol]Ordere d By: Price Crain on 06-23-2023 RBC (Bld) [#/Vol] 2.66 10*6/uL 3.90-5.60 [facility] Serum or plasma albumin/glob ulin mass ratioOrdered By: Price Crain on 06-23-2023 Albumin/Globulin [Mass ratio] 1.6 {ratio} [facility] Serum or plasma anion gap de terminationOrdered By: Price Crain on 06-23-2023 Anion gap [Moles/Vol] 9.7 mmol/L 6.0-15.0 [facility] Sodium [Moles/volume] in Ser um or PlasmaOrdered By: Price Crain on 06-23-2023 Sodium [Moles/Vol] 139 mmol/L 136-145 [facility] Urate [Mass/volume] in Serum or PlasmaOrdered By: Price Crain on 06-23-2023 Urate [Mass/Vol] 4.8 mg/dL 4.4-7.6 [facility] Urea nitrogen [Mass/volume] in Serum or PlasmaOrdered By: Price Crain on 06-23-2023 Urea nitrogen [Mass/Vol] 17 mg/dL 7-25 [facility] Urine protein/creatinine rat ioOrdered By: Price Crain on 06-23-2023 Protein/Creatinine (U) [Ratio] 2835 mg/g{Cre} 0-200 [facility] Vitamin D+Metabolites [Mass/ volume] in Serum or PlasmaOrdered By: Price Crain on 06-23-2023 Vitamin D+Metabolites [Mass/Vol] 51.0 ng/mL 30-100 [facility] Comment on above: VITAMIN D STATUS 25( OH)VITAMIN D RANGE (ng/mL) Deficient <20 Insufficient 20 to <30Sufficient 30 to 100Reference: Dieudonne MF,Brendon GUERRA, Estrella CARTER, et al. Evaluation,treatment, and prevention of vitamin D deficiency; an Endocrine Society clinical practice guideline. JCEM. 2010; 96(7):1911-30. Physician Orderon 06-15-2023 Physician Order [id number]#1.00TIFF [facility] RAD - MISCon 06-12-2023 RAD - MISC [id number]#1.00TIFF [facility] Consultation Noteon 06-11-20 Consultation Note [id number]#1.00TIFF [facility] Lab Reportson 06-11-2023 Lab Reports [id number]#1.00TIFF [facility] Operative Reporton Operative Report [id number]#1.00TIFF Normal [facility] Lab Reportson 06-04-2023 Lab Reports [id number]#1.00TIFF [facility] Lab Reports [id number]#1.00TIFF [facility] Formson 06-02-2023 Forms [id number]#1.00TIFF [facility] Lab Reportson 06-02-2023 Lab Reports [id number]#1.00TIFF Normal [facility] Lab Reports [id number]#1.00TIFF Normal [facility] Lab Reports [id number]#1.00TIFF [facility] Lab Reportson 06-01-2023 Lab Reports [id number]#1.00TIFF [facility] C Urineon 05-30-2023 Bacteria identified Cx Nom (U) Microbiology PROCEDURE: Urine Culture [R1] SOURCE: U Random BODY SITE: COLLECTED DATE/TIME: 05/28/2023 15:26 EDT RECEIVED DATE/TIME: 05/28/2023 20:31 EDT START DATE/TIME: 05/28/2023 20:31 EDT FREE TEXT SOURCE: Diego RICKS, Orquidea Cortez MD, Orquidea Taylor FINAL REPORTS Final Report [] Verified Date/Time: 05/30/2023 09:44 EDT >100,000 cfu/ml Enterobacter cloacae SUSCEPTIBILITY RESULTS _ LEGEND: S=Susceptible, N/R=Not Reported, Blank=Data not available, or drug not advisable or tested, I=Intermediate, ESBL=Extended spectrum beta-lactamase, R=Resistant, TFG=Thymidine-dependent strain, RADHA=Beta-lactamase positive, DEEPA=mcg/m;(mg/L), S*=Predicted susceptible interp, [...] Locations R1: This test was performed at: [facility], [address] [place] [address], [id number] , , [facility] Comment on above: Performed By: #### [id number] ####[place] [address] Consultation Noteon 05-29-20 Consultation Note [id number]#1.00TIFF [facility] Reminderson 05-28-2023 Reminders - From: Rupa Mckeon MA To: Diego RICKS, Orquidea Taylor; Sent: 05/28/2023 15:45:43 EDT Show up: 05/28/2023 15:45:00 EDT Subject: C&S Reminder/Recall Follow up to look at C&S before his procedure on 06/11/23 [facility] RAD - MISCon 05-27-2023 [facility] [id number]#1.00TIFF Normal [facility] Lab Reportson 05-25-2023 Lab Reports [id number]#1.00TIFF Normal [facility] RAD - MISCon 05-22-2023 RAD - MISC [id number]#1.00TIFF Normal [facility] Alanine aminotransferase [En zymatic activity/volume] in Serum or PlasmaOrdered By: Brook Huddleston on 05-19-2023 ALT [Catalytic activity/Vol] 17 U/L 7-52 [facility] Albumin [Mass/volume] in Ser um or PlasmaOrdered By: Brook Huddleston on 05-19-2023 Albumin [Mass/Vol] 3.6 g/dL 2.9-4.4 [facility] Albumin [Mass/volume] in Ser um or Plasma by Bromocresol green (BCG) dye binding methoOrdered By: Brook Huddleston on 05-19-2023 Albumin BCG dye [Mass/Vol] 4.0 g/dL 3.5-5.7 [facility] Albumin/Protein.total in 24 hour Urine by ElectrophoresisOrdered By: Brook Huddleston on 05-19-2023 Albumin Elph (24H U) [Mass fraction] 35.4 % . [facility] Alkaline phosphatase [Enzyma tic activity/volume] in Serum or PlasmaOrdered By: Brook Huddleston on 05-19-2023 ALP [Catalytic activity/Vol] 99 U/L 34-104 [facility] Aspartate aminotransferase [ Enzymatic activity/volume] in Serum or PlasmaOrdered By: Brook Huddleston on 05-19-2023 AST [Catalytic activity/Vol] 15 U/L 13-39 [facility] Basophils Auto (Bld) [#/Vol] Ordered By: Brook Huddleston on 05-19-2023 Basophils (Bld) [#/Vol] 0.0 10*3/uL 0.0-0.2 [facility] Basophils/100 WBC Auto (Bld) Ordered By: Brook Huddleston on 05-19-2023 Basophils/100 WBC (Bld) 0.6 % . [facility] Bilirubin.total [Mass/volume ] in Serum or PlasmaOrdered By: Brook Huddleston on 05-19-2023 Bilirubin [Mass/Vol] 0.3 mg/dL 0.3-1.0 [facility] Calcium [Mass/volume] in Ser um or PlasmaOrdered By: Brook Huddleston on 05-19-2023 Calcium [Mass/Vol] 9.1 mg/dL 8.6-10.3 [facility] Carbon dioxide, total [Moles /volume] in Serum or PlasmaOrdered By: Brook Huddleston on 05-19-2023 CO2 [Moles/Vol] 25.3 mmol/L 21.0-31.0 [facility] Chloride [Moles/volume] in S valeria or PlasmaOrdered By: Brook Huddleston on 05-19-2023 Chloride [Moles/Vol] 108 mmol/L 98-107 [facility] Creatinine [Mass/volume] in Serum or PlasmaOrdered By: Brook Huddleston on 05-19-2023 Creatinine [Mass/Vol] 1.70 mg/dL 0.70-1.30 [facility] Eosinophils Auto (Bld) [#/Vo l]Ordered By: Brook Huddleston on 05-19-2023 Eosinophils (Bld) [#/Vol] 0.4 10*3/uL 0.0-0.45 [facility] Eosinophils/100 WBC Auto (Bl d)Ordered By: Brook Huddleston on 05-19-2023 Eosinophils/100 WBC (Bld) 7.0 % . [facility] Erythrocyte distribution wid th Auto (RBC) [Ratio]Ordered By: Brook Huddleston on 05-19-2023 Erythrocyte distribution width (RBC) [Ratio] 16.4 % 12.0-14.8 [facility] Gamma globulin/Protein.total in 24 hour Urine by ElectrophoresisOrdered By: Brook Huddleston on 05-19-2023 Gamma globulin Elph (24H U) [Mass fraction] 22.0 % . [facility] Globulin Calc (S) [Mass/Vol] Ordered By: Brook Huddleston on 05-19-2023 Globulin (S) [Mass/Vol] 2.5 g/dL [facility] Glucose [Mass/volume] in Ser um or PlasmaOrdered By: Brook Huddleston on 05-19-2023 Glucose [Mass/Vol] 253 mg/dL 70-100 [facility] Comment on above: ADA recommended refe rence rangeRandom Glucose Reference Range is dependent on time and content of last meal. Glucose of more than 200 mg/dL in a nonstressed, ambulatory subject supports the diagnosis of Diabetes Mellitus. Hematocrit Auto (Bld) [Volum e fraction]Ordered By: Brook Huddleston on 05-19-2023 Hematocrit (Bld) [Volume fraction] 29.5 % 38.8-50.0 [facility] Hemoglobin [Mass/volume] in BloodOrdered By: Brook Huddleston on 05-19-2023 Hemoglobin (Bld) [Mass/Vol] 9.9 g/dL 13.0-17.0 [facility] IgA [Mass/volume] in Serum o r PlasmaOrdered By: Brook Huddleston on 05-19-2023 IgA [Mass/Vol] 143 mg/dL 61-437 [facility] IgG [Mass/volume] in Serum o r PlasmaOrdered By: Brook Huddleston on 05-19-2023 IgG [Mass/Vol] 891 mg/dL 603-1613 [facility] IgM [Mass/volume] in Serum o r PlasmaOrdered By: Brook Huddleston on 05-19-2023 IgM [Mass/Vol] 52 mg/dL 15-143 [facility] Comment on above: Performed at: [employer] [facility] [address] [id number] Director: Melchor Agrawal PhD, Phone: [phone] Immunofixation for UrineOrde red By: Brook Huddleston on 05-19-2023 Interpretation Immunofixation (U) [Interp] Comment: . [facility] Comment on above: Presence of monoclon al protein is unclear at this time. Suggestrepeat in 3 to 6 months if clinically indicated.Performed at: [employer] [facility] [address] [id number] Director: Melchor Agrawal PhD, Phone: [phone] Immunoglobulin light chains. kappa.free [Mass/volume] in SerumOrdered By: Brook Huddleston on 05-19-2023 Immunoglobulin light chains.kappa.free (S) [Mass/Vol] 34.4 mg/L 3.3-19.4 [facility] Immunoglobulin light chains. kappa.free/Immunoglobulin light chains.lambda.free [MassOrdered By: Brook Huddleston on 05-19-2023 Immunoglobulin light chains.kappa.free/Immun oglobulin light chains.lambda.free (S) [Mass ratio] 1.43 0.26-1.65 [facility] Comment on above: Performed at: [address] [id number] Director: Melchor Agrawal PhD, Phone: [phone] Immunoglobulin light chains. lambda.free [Mass/volume] in Serum or PlasmaOrdered By: Brook Huddleston on 05-19-2023 Immunoglobulin light chains.lambda.free [Mass/Vol] 24.1 mg/L 5.7-26.3 [facility] Lactate dehydrogenase [Enzym atic activity/volume] in Serum or Plasma by Lactate to pyOrdered By: Brook Huddleston on 05-19-2023 LDH Lactate to pyruvate reaction [Catalytic activity/Vol] 154 U/L 140-271 [facility] Leukocytes [#/volume] correc lizbet for nucleated erythrocytes in Blood by Automated counOrdered By: Brook Huddleston on 05-19-2023 WBC corrected for nucl RBC Auto (Bld) [#/Vol] 6.1 10*3/uL 4.1-10.5 [facility] Lymphocytes Auto (Bld) [#/Vo l]Ordered By: Brook Huddleston on 05-19-2023 Lymphocytes (Bld) [#/Vol] 1.1 10*3/uL 1.00-4.8 [facility] Lymphocytes/100 WBC Auto (Bl d)Ordered By: Brook Huddleston on 05-19-2023 Lymphocytes/100 WBC (Bld) 17.4 % . [facility] MCH Auto (RBC) [Entitic mass ]Ordered By: Brook Huddleston on 05-19-2023 MCH (RBC) [Entitic mass] 36.3 pg 27.5-35.2 [facility] MCHC Auto (RBC) [Mass/Vol]Or dered By: Brook Huddleston on 05-19-2023 MCHC (RBC) [Mass/Vol] 33.6 g/dL 32.5-35.6 [facility] MCV Auto (RBC) [Entitic vol] Ordered By: Brook Huddleston on 05-19-2023 MCV (RBC) [Entitic vol] 107.8 fL 83.5-101 [facility] Monocytes Auto (Bld) [#/Vol] Ordered By: Brook Huddleston on 05-19-2023 Monocytes (Bld) [#/Vol] 0.4 10*3/uL 0.0-0.8 [facility] Monocytes/100 WBC Auto (Bld) Ordered By: Brook Huddleston on 05-19-2023 Monocytes/100 WBC (Bld) 6.0 % . [facility] Neutrophils Auto (Bld) [#/Vo l]Ordered By: Brook Huddleston on 05-19-2023 Neutrophils (Bld) [#/Vol] 4.2 10*3/uL 1.8-7.7 [facility] Neutrophils/100 WBC Auto (Bl d)Ordered By: Brook Huddleston on 05-19-2023 Neutrophils/100 WBC (Bld) 69.0 % . [facility] No Panel InformationOrdered By: Brook Huddleston on 05-19-2023 Estimated GFR (CKD-EPI) 40.753 mL/Min [facility] Creatinine Clearance (Chem 44.34 [facility] Protein Electrophoresis M-Anselmo Not observed g/dL Not Observed [facility] [facility]rophoresis Note See comment . [facility] Comment on above: Protein electrophore sis scan will follow via computer,mail, or revenue stamp cutter delivery. Urine Random Prot Electrophor Note See comment . [facility] Comment on above: Protein electrophore sis scan will follow via computer,mail, or revenue stamp cutter delivery. Nucleated erythrocytes [Pres ence] in Blood by Automated countOrdered By: Brook Huddleston on 05-19-2023 Nucleated RBC Auto Ql (Bld) 0.0 /100{WBC} 0-0.5 [facility] Platelet mean volume Auto (B ld) [Entitic vol]Ordered By: Brook Huddleston on 05-19-2023 Platelet mean volume (Bld) [Entitic vol] 8.6 fL 6.6-10.1 [facility] Platelets Auto (Bld) [#/Vol] Ordered By: Brook Huddleston on 05-19-2023 Platelets (Bld) [#/Vol] 160 10*3/uL 150-450 [facility] Potassium [Moles/volume] in Serum or PlasmaOrdered By: Brook Huddleston on 05-19-2023 Potassium [Moles/Vol] 4.7 mmol/L 3.5-5.1 [facility] Protein [Mass/volume] in Ser um or PlasmaOrdered By: Brook Huddleston on 05-19-2023 Protein [Mass/Vol] 6.5 g/dL 6.0-8.5 [facility] Protein [Mass/volume] in Uri neOrdered By: Brook Huddleston on 05-19-2023 Protein (U) [Mass/Vol] 94.6 mg/dL Not Estab. Fi [facility] Protein.monoclonal/Protein.t otal in 24 hour Urine by ElectrophoresisOrdered By: Brook Huddleston on 05-19-2023 Protein.monoclonal Elph (24H U) [Mass fraction] Comment: % Not Observed [facility] Comment on above: UPE shows asymmetric al gamma. RBC Auto (Bld) [#/Vol]Ordere d By: Brook Huddleston on 05-19-2023 RBC (Bld) [#/Vol] 2.73 10*6/uL 3.90-5.60 [facility] Retail - Clinical Noteon Retail - Clinical Note [id number]#[id number]:127 Normal [facility] Serum globulin measurement ( mass/volume)Ordered By: Brook Huddleston on 05-19-2023 Globulin (S) [Mass/Vol] 2.9 g/dL 2.2-3.9 [facility] Serum or plasma albumin/glob ulin mass ratioOrdered By: Brook Huddleston on 05-19-2023 Albumin/Globulin [Mass ratio] 1.6 {ratio} [facility] Albumin/Globulin [Mass ratio] 1.2 {ratio} 0.7-1.7 [facility] Serum or plasma alpha 1 glob ulin measurement by electrophoresis (mass/volume)Ordered By: Brook Huddleston on 05-19-2023 Alpha 1 globulin Elph [Mass/Vol] 0.3 g/dL 0.0-0.4 [facility] Serum or plasma alpha 2 glob ulin measurement by electrophoresis (mass/volume)Ordered By: Brook Huddleston on 05-19-2023 Alpha 2 globulin Elph [Mass/Vol] 0.9 g/dL 0.4-1.0 [facility] Serum or plasma anion gap de terminationOrdered By: Brook Huddleston on 05-19-2023 Anion gap [Moles/Vol] 10.4 mmol/L 6.0-15.0 [facility] Serum or plasma beta globuli n measurement by electrophoresis (mass/volume)Ordered By: Brook Huddleston on 05-19-2023 Beta globulin Elph [Mass/Vol] 0.9 g/dL 0.7-1.3 [facility] Serum or plasma gamma globul in measurement by electrophoresis (mass/volume)Ordered By: Brook Huddleston on 05-19-2023 Gamma globulin Elph [Mass/Vol] 0.8 g/dL 0.4-1.8 [facility] Sodium [Moles/volume] in Ser um or PlasmaOrdered By: Brook Huddleston on 05-19-2023 Sodium [Moles/Vol] 139 mmol/L 136-145 [facility] Urea nitrogen [Mass/volume] in Serum or PlasmaOrdered By: Brook Huddleston on 05-19-2023 Urea nitrogen [Mass/Vol] 24 mg/dL 7-25 [facility] Urine alpha 1 globulin/total protein by electrophoresisOrdered By: Brook Huddleston on 05-19-2023 Alpha 1 globulin Elph (U) [Mass fraction] 5.0 % . [facility] Urine alpha 2 globulin/total protein ratio by electrophoresisOrdered By: Brook Huddleston on 05-19-2023 Alpha 2 globulin Elph (U) [Mass fraction] 16.8 % . [facility] Urine beta globulin measurem ent by electrophoresis (mass/volume)Ordered By: Brook Huddleston on 05-19-2023 Beta globulin Elph (U) [Mass/Vol] 20.7 % . [facility] WBC Auto (Bld) [#/Vol]Ordere d By: Brook Huddleston on 05-19-2023 WBC (Bld) [#/Vol] 6.1 10*3/uL 4.1-10.5 [facility] Consultation Noteon 05-18-20 Consultation Note [id number]#[id number]:127 Normal [facility] Lab Reportson 05-18-2023 Lab Reports [id number]#1.00CD:127 Normal [facility] Lab Reports [id number]#1.00CD:127 Normal [facility] Operative Reporton Operative Report [id number]#[id number]:127 Normal [facility] Ambulatory Visit Summaryon 0 05-15-2023 Ambulatory Visit Summary PATSY CUNNINGHAM :1945 Visit Date:05/15/2023 Ambulatory Visit Instructions Your [...] Care Team Attending Physician - Diego RICKS, Orquidea Taylor Primary Care Physician - HELEN HEATH MD This Is Your Medications List Contact prescribing physician if questions or concerns acyclovir (Zovirax 400 mg Tab) aspirin (aspirin 81 mg Chew Tab) atorvastatin (atorvastatin 20 mg Tab) bifidobacterium-lactobacil huber (Probiotic + Colostrum) cholecalciferol (Vitamin D3 2000 [...] Following Appointments Follow Up with Diego RICKS, Orquidea Taylor, OUSMANE, URO When: Comments: -KUB -sched cysto/R stent exchange and L ESWL and SPT change Where: [address], [place] [phone] Medications What How Much When Instructions Unchanged [...] prescribing physician if questions or concerns Unchanged bifidobacterium-lactobacil huber (Probiotic + Colostrum) By Mouth Every day [...] symptoms Weak urine stream Normal [facility] Patient Educationon 05-15-20 Patient Education Obstetrics and Gynec ology Overactive Bladder, Adult Overactive bladder is a [...] health care provider. General instructions ? Take uuqy-vep-vhokahk and prescription medicines only as told by [...] (more content not included)... Normal [facility] Urology Office/Clinic Noteon 05-15-2023 Urology Office/Clinic Note [...] renal failure. He was referred to Dr. Jessica Feliciano for further evaluation regarding recommendations of [...] bond/CIC at that time. [place] [facility] [place]-sided hydronephrosis and proximal hydroureter. Findings have progressed since prior study. Cr 1.87/ eGFR 36.6 Cath placed 11/21/2022 ANA 12/01/22 - Right hydronephrosis, grossly similar to the prior study despite bond in place. S/P cysto/RG/ureteroscopy/sten t placement/RT ureteral dilation and stent placement 12/10/22. ANA 12/17/22 - Interval resolution of the right sided hydronephrosis since the prior US study. Referred to [facility] urologist for right distal stricture, small capacity bladder with BL VUR 12/19/22. Dr. Jessica Feliciano evaluation (more content not included)... Normal [facility] Comment on above: Result Comment: Elec tronically Signed By: Orquidea Cortez MD\.br\Date and Time Signed: 05/15/23 16:38 EDT\.br\Electronically Co-Signed By: Cornelia De Leon\.br\Date and Time Co-Signed: 05/15/23 16:17 EDT Alanine aminotransferase [En zymatic activity/volume] in Serum or PlasmaOrdered By: Brook Huddleston on 02-19-2023 ALT [Catalytic activity/Vol] 14 U/L 7-52 [facility] Albumin [Mass/volume] in Ser um or Plasma by Bromocresol green (BCG) dye binding methoOrdered By: Brook Huddleston on 02-19-2023 Albumin BCG dye [Mass/Vol] 3.9 g/dL 3.5-5.7 [facility] Alkaline phosphatase [Enzyma tic activity/volume] in Serum or PlasmaOrdered By: Brook Huddleston on 02-19-2023 ALP [Catalytic activity/Vol] 77 U/L 34-104 [facility] Aspartate aminotransferase [ Enzymatic activity/volume] in Serum or PlasmaOrdered By: Brook Huddleston on 02-19-2023 AST [Catalytic activity/Vol] 16 U/L 13-39 [facility] Basophils Auto (Bld) [#/Vol] Ordered By: Brook Huddleston on 02-19-2023 Basophils (Bld) [#/Vol] 0.0 10*3/uL 0.0-0.2 [facility] Basophils/100 WBC Auto (Bld) Ordered By: Brook Huddleston on 02-19-2023 Basophils/100 WBC (Bld) 0.3 % . [facility] Bilirubin.total [Mass/volume ] in Serum or PlasmaOrdered By: Brook Huddleston on 02-19-2023 Bilirubin [Mass/Vol] 0.5 mg/dL 0.3-1.0 [facility] Calcium [Mass/volume] in Ser um or PlasmaOrdered By: Brook Huddleston on 02-19-2023 Calcium [Mass/Vol] 8.7 mg/dL 8.6-10.3 [facility] Carbon dioxide, total [Moles /volume] in Serum or PlasmaOrdered By: Brook Huddleston on 02-19-2023 CO2 [Moles/Vol] 28.1 mmol/L 21.0-31.0 [facility] Chloride [Moles/volume] in S valeria or PlasmaOrdered By: Brook Huddleston on 02-19-2023 Chloride [Moles/Vol] 108 mmol/L 98-107 [facility] Creatinine [Mass/volume] in Serum or PlasmaOrdered By: Brook Huddleston on 02-19-2023 Creatinine [Mass/Vol] 1.71 mg/dL 0.70-1.30 [facility] Eosinophils Auto (Bld) [#/Vo l]Ordered By: Broko Huddleston on 02-19-2023 Eosinophils (Bld) [#/Vol] 0.2 10*3/uL 0.0-0.45 [facility] Eosinophils/100 WBC Auto (Bl d)Ordered By: Brook Huddleston on 02-19-2023 Eosinophils/100 WBC (Bld) 4.0 % . [facility] Erythrocyte distribution wid th Auto (RBC) [Ratio]Ordered By: Brook Huddleston on 02-19-2023 Erythrocyte distribution width (RBC) [Ratio] 16.9 % 12.0-14.8 [facility] Globulin Calc (S) [Mass/Vol] Ordered By: Brook Huddleston on 02-19-2023 Globulin (S) [Mass/Vol] 2.0 g/dL [facility] Glucose [Mass/volume] in Ser um or PlasmaOrdered By: Brook Huddleston on 02-19-2023 Glucose [Mass/Vol] 99 mg/dL 70-100 [facility] Comment on above: ADA recommended refe rence rangeRandom Glucose Reference Range is dependent on time and content of last meal. Glucose of more than 200 mg/dL in a nonstressed, ambulatory subject supports the diagnosis of Diabetes Mellitus. Hematocrit Auto (Bld) [Volum e fraction]Ordered By: Brook Huddleston on 02-19-2023 Hematocrit (Bld) [Volume fraction] 27.7 % 38.8-50.0 [facility] Hemoglobin [Mass/volume] in BloodOrdered By: Brook Huddleston on 02-19-2023 Hemoglobin (Bld) [Mass/Vol] 9.4 g/dL 13.0-17.0 [facility] Leukocytes [#/volume] correc lizbet for nucleated erythrocytes in Blood by Automated counOrdered By: Brook Huddleston on 02-19-2023 WBC corrected for nucl RBC Auto (Bld) [#/Vol] 5.7 10*3/uL 4.1-10.5 [facility] Lymphocytes Auto (Bld) [#/Vo l]Ordered By: Brook Huddleston on 02-19-2023 Lymphocytes (Bld) [#/Vol] 1.0 10*3/uL 1.00-4.8 [facility] Lymphocytes/100 WBC Auto (Bl d)Ordered By: Brook Huddleston on 02-19-2023 Lymphocytes/100 WBC (Bld) 18.2 % . [facility] MCH Auto (RBC) [Entitic mass ]Ordered By: Brook Huddleston on 02-19-2023 MCH (RBC) [Entitic mass] 36.5 pg 27.5-35.2 [facility] MCHC Auto (RBC) [Mass/Vol]Or dered By: Brook Huddleston on 02-19-2023 MCHC (RBC) [Mass/Vol] 33.9 g/dL 32.5-35.6 [facility] MCV Auto (RBC) [Entitic vol] Ordered By: Brook Huddleston on 02-19-2023 MCV (RBC) [Entitic vol] 107.8 fL 83.5-101 [facility] Monocytes Auto (Bld) [#/Vol] Ordered By: Brook Huddleston on 02-19-2023 Monocytes (Bld) [#/Vol] 0.3 10*3/uL 0.0-0.8 [facility] Monocytes/100 WBC Auto (Bld) Ordered By: Brook Huddleston on 02-19-2023 Monocytes/100 WBC (Bld) 6.0 % . [facility] Neutrophils Auto (Bld) [#/Vo l]Ordered By: Brook Huddleston on 02-19-2023 Neutrophils (Bld) [#/Vol] 4.1 10*3/uL 1.8-7.7 [facility] Neutrophils/100 WBC Auto (Bl d)Ordered By: Brook Huddleston on 02-19-2023 Neutrophils/100 WBC (Bld) 71.5 % . [facility] No Panel InformationOrdered By: Brook Huddleston on 02-19-2023 Estimated GFR (CKD-EPI) 40.467 mL/Min [facility] Creatinine Clearance (Chem 44.08 [facility] Nucleated erythrocytes [Pres ence] in Blood by Automated countOrdered By: Brook Huddleston on 02-19-2023 Nucleated RBC Auto Ql (Bld) 0.0 /100{WBC} 0-0.5 [facility] Platelet mean volume Auto (B ld) [Entitic vol]Ordered By: Borok Huddleston on 02-19-2023 Platelet mean volume (Bld) [Entitic vol] 8.4 fL 6.6-10.1 [facility] Platelets Auto (Bld) [#/Vol] Ordered By: Brook Huddleston on 02-19-2023 Platelets (Bld) [#/Vol] 118 10*3/uL 150-450 [facility] Potassium [Moles/volume] in Serum or PlasmaOrdered By: Brook Huddleston on 02-19-2023 Potassium [Moles/Vol] 4.1 mmol/L 3.5-5.1 [facility] Protein [Mass/volume] in Ser um or PlasmaOrdered By: Brook Huddleston on 02-19-2023 Protein [Mass/Vol] 5.9 g/dL 6.4-8.9 [facility] RBC Auto (Bld) [#/Vol]Ordere d By: Brook Huddleston on 02-19-2023 RBC (Bld) [#/Vol] 2.57 10*6/uL 3.90-5.60 [facility] Serum or plasma albumin/glob ulin mass ratioOrdered By: Brook Huddleston on 02-19-2023 Albumin/Globulin [Mass ratio] 2.0 {ratio} [facility] Serum or plasma anion gap de terminationOrdered By: Brook Huddleston on 02-19-2023 Anion gap [Moles/Vol] 8.0 mmol/L 6.0-15.0 [facility] Sodium [Moles/volume] in Ser um or PlasmaOrdered By: Brook Huddleston on 02-19-2023 Sodium [Moles/Vol] 140 mmol/L 136-145 [facility] Urea nitrogen [Mass/volume] in Serum or PlasmaOrdered By: Brook Huddleston on 02-19-2023 Urea nitrogen [Mass/Vol] 22 mg/dL 7-25 [facility] WBC Auto (Bld) [#/Vol]Ordere d By: Brook Huddleston on 02-19-2023 WBC (Bld) [#/Vol] 5.7 10*3/uL 4.1-10.5 [facility] Patient Educationon 02-14-20 23 Patient Education Nephrology Dietary Guidelines to Help [...] ? 8 oz (237 mL) of milk, zsgvsfv-mhmipwtgxqmz-hmyht milk, and calcium-fortifiedfruit juice. Calcium-fortified means that [...] Spinach (cooked), rhubarb, beets, sweet potatoes, and Surinamese chard. ? Peanuts. ? Potato chips, romansh fries, and baked potatoes with skin on. ? Nuts and nut products. ? Chocolate. ? If you regularly take a diuretic medicine, make sure to eat at least 1 or 2 servings of fruits or vegetables that are high in potassium each day. These include: ? Avocado. ? Banana. ? Craven, prune, carrot, or tomato juice. ? Baked [...] fish oil, or vitamin B6. ? Take rjgu-pls-mzvemms and prescription medicines only as told by your health care provider. These include supplements. What foods should I limit? Limit your in (more content not included)... Normal [facility] Urology Office/Clinic Noteon 02-13-2023 Urology Office/Clinic Note [...] UTI, UTI symptoms, weak urine stream. S/P cysto/RG/ureteroscopy/sten t placement/RT ureteral dilation done on 12/10/22, TURP [...] bond/CIC at that time. [place] [facility] [place]-sided hydronephrosis and proximal hydroureter. Findings have progressed since prior study. Cr 1.87/ eGFR 36.6 Cath placed 11/21/2022 ANA 12/01/22 - Right hydronephrosis, grossly similar to the prior study despite bond in place. S/P cysto/RG/ureteroscopy/sten t placement/RT ureteral dilation and stent placement 12/10/22. ANA 12/17/22 - Interval resolution of the right sided hydronephrosis since the prior US study. Taking Oxybutynin 10 ER qd. Stent not bothersome, oxybutynin working well. [place] improved, kidney draining, fxn preserved. Again thorough [...] tertiary center for further evaluation. Referred to [facility] urologist for right distal stricture, small [...] (more content not included)... Normal [facility] Comment on above: Result Comment: Elec tronically Signed By: Diego RICKS, Orquidea Taylor\.br\Date and Time Signed: 02/13/23 13:09 EDT Albumin [Mass/volume] in Ser um or PlasmaOrdered By: Brook Huddleston on 01-05-2023 Albumin [Mass/Vol] 3.5 g/dL 2.9-4.4 [facility] Albumin/Protein.total in 24 hour Urine by ElectrophoresisOrdered By: Brook Huddleston on 01-05-2023 Albumin Elph (24H U) [Mass fraction] 50.4 % . [facility] Automated erythrocytes count in urine sediment (number/area)Ordered By: Price Crain on 01-05-2023 RBC Auto (Urine sed) [#/Area] 0-1 [HPF] 0-4 [facility] Automated leukocytes count i n urine sediment (number/area)Ordered By: Price Crain on 01-05-2023 WBC Auto (Urine sed) [#/Area] Innumerable [HPF] 0-4 [facility] Bilirubin Test strip Ql (U)O rdered By: Price Crain on 01-05-2023 Bilirubin Ql (U) Negative Negative [facility] Color Auto (U)Ordered By: Ivan Crain on 01-05-2023 Color (U) Yellow Yellow [facility] Creatinine [Mass/volume] in UrineOrdered By: Price Crain on 01-05-2023 Creatinine (U) [Mass/Vol] 102.0 mg/dL 14.0-26.0 [facility] Ferritin [Mass/volume] in Se rum or PlasmaOrdered By: Price Crain on 01-05-2023 Ferritin [Mass/Vol] 329.6 ng/mL 23.9-336.2 [facility] Folate [Mass/volume] in Seru m or PlasmaOrdered By: Price Crain on 01-05-2023 Folate [Mass/Vol] 47.0 ng/mL >5.9 [facility] Comment on above: Folate reference ran ge: >5.9 ng/mlThe WHO technical consultation on folate and vitamin [id number] has determined that folate concentrations lessthan 4 ng/ml are considered deficient. Gamma globulin/Protein.total in 24 hour Urine by ElectrophoresisOrdered By: Brook Huddleston on 01-05-2023 Gamma globulin Elph (24H U) [Mass fraction] 19.2 % . [facility] IgA [Mass/volume] in Serum o r PlasmaOrdered By: Brook Huddleston on 01-05-2023 IgA [Mass/Vol] 102 mg/dL 61-437 [facility] IgG [Mass/volume] in Serum o r PlasmaOrdered By: Brook Huddleston on 01-05-2023 IgG [Mass/Vol] 720 mg/dL 603-1613 [facility] IgM [Mass/volume] in Serum o r PlasmaOrdered By: Brook Huddleston on 01-05-2023 IgM [Mass/Vol] 38 mg/dL 15-143 [facility] Comment on above: Performed at: [facility] [id number] [place] [id number] Director: Melchor Agrawal PhD, Phone: [phone] Immunofixation for UrineOrde red By: Brook Huddleston on 01-05-2023 Interpretation Immunofixation (U) [Interp] See comment . [facility] Comment on above: Immunofixation shows IgG monoclonal protein with lambdalight chain specificity.[place] appears asymmetrical.Performed at: [facility] [address] [id number] Director: Melchor Agrawal PhD, Phone: [phone] Immunoglobulin light chains. kappa.free [Mass/volume] in SerumOrdered By: Brook Huddleston on 01-05-2023 Immunoglobulin light chains.kappa.free (S) [Mass/Vol] 20.3 mg/L 3.3-19.4 [facility] Immunoglobulin light chains. kappa.free/Immunoglobulin light chains.lambda.free [MassOrdered By: Brook Huddleston on 01-05-2023 Immunoglobulin light chains.kappa.free/Immun oglobulin light chains.lambda.free (S) [Mass ratio] 1.45 0.26-1.65 [facility] Comment on above: Performed at: [facility] [id number] [place], [place] [id number] Director: Melchor Agrawal PhD, Phone: [phone] Immunoglobulin light chains. lambda.free [Mass/volume] in Serum or PlasmaOrdered By: Brook Huddleston on 01-05-2023 Immunoglobulin light chains.lambda.free [Mass/Vol] 14.0 mg/L 5.7-26.3 [facility] Iron [Mass/volume] in Serum or PlasmaOrdered By: Price Crain on 01-05-2023 Iron [Mass/Vol] 104 ug/dL 50-212 [facility] Iron binding capacity [Mass/ volume] in Serum or PlasmaOrdered By: Price Crain on 01-05-2023 Iron binding capacity [Mass/Vol] 248 ug/dL 255-450 [facility] Iron saturation [Mass Fracti on] in Serum or PlasmaOrdered By: Price Crain on 01-05-2023 Iron saturation [Mass fraction] 41.9 % 20-50 [facility] Ketones Auto test strip (U) [Mass/Vol]Ordered By: Price Crain on 01-05-2023 Ketones (U) [Mass/Vol] Negative Negative [facility] - UrinalysisOrder ed By: Price Crain on 01-05-2023 Hyaline casts LM Ql (Urine sed) 0-8 [LPF] 0-8 [facility] Lactate dehydrogenase [Enzym atic activity/volume] in Serum or Plasma by Lactate to pyOrdered By: Brook Huddleston on 01-05-2023 LDH Lactate to pyruvate reaction [Catalytic activity/Vol] 158 U/L 140-271 [facility] Magnesium [Mass/volume] in S valeria or PlasmaOrdered By: Price Crain on 01-05-2023 Magnesium [Mass/Vol] 1.9 mg/dL 1.9-2.7 [facility] Nitrite Test strip Ql (U)Ord ered By: Price Crain on 01-05-2023 Nitrite Ql (U) Negative Negative [facility] No Panel InformationOrdered By: Brook Huddleston on 01-05-2023 Urine Random Prot Electrophor Note See comment . [facility] Comment on above: Protein electrophore sis scan will follow via computer,mail, or revenue stamp cutter delivery.Performed at: [facility] [employer] [id number] Director: Melchor Agrawal PhD, Phone: [phone] Protein Electrophoresis M-Anselmo Not observed g/dL Not Observed [facility] Protein Electrophoresis Note See comment . [facility] Comment on above: Protein electrophore sis scan will follow via computer,mail, or revenue stamp cutter delivery. Parathyrin.intact [Mass/volu me] in Serum or PlasmaOrdered By: Price Crain on 01-05-2023 Parathyrin.intact [Mass/Vol] 70.1 pg/mL 12-88 [facility] Phosphate [Mass/volume] in S valeria or PlasmaOrdered By: Price Crain on 01-05-2023 Phosphate [Mass/Vol] 2.9 mg/dL 3.7-7.2 [facility] Protein Auto test strip (U) [Mass/Vol]Ordered By: Price Crain on 01-05-2023 Protein (U) [Mass/Vol] 100 mg/dL Negative [facility] Protein [Mass/volume] in Ser um or PlasmaOrdered By: Brook Huddleston on 01-05-2023 Protein [Mass/Vol] 6.2 g/dL 6.0-8.5 [facility] Protein [Mass/volume] in Uri neOrdered By: Price Crain on 01-05-2023 Protein (U) [Mass/Vol] 85 mg/dL 0-[address] [facility] Protein [Mass/volume] in Uri neOrdered By: Brook Huddleston on 01-05-2023 Protein (U) [Mass/Vol] 85.2 mg/dL Not Estab. Fi [facility] Protein.monoclonal/Protein.t otal in 24 hour Urine by ElectrophoresisOrdered By: Brook Huddleston on 01-05-2023 Protein.monoclonal Elph (24H U) [Mass fraction] Not observed % Not Observed [facility] Serum globulin measurement ( mass/volume)Ordered By: Brook Huddleston on 01-05-2023 Globulin (S) [Mass/Vol] 2.7 g/dL 2.2-3.[address] [facility] Serum or plasma albumin/glob ulin mass ratioOrdered By: Brook Huddleston on 01-05-2023 Albumin/Globulin [Mass ratio] 1.3 {ratio} 0.7-1.7 [facility] Serum or plasma alpha 1 glob ulin measurement by electrophoresis (mass/volume)Ordered By: Brook Huddleston on 01-05-2023 Alpha 1 globulin Elph [Mass/Vol] 0.3 g/dL 0.0-0.4 [facility] Serum or plasma alpha 2 glob ulin measurement by electrophoresis (mass/volume)Ordered By: Brook Huddleston on 01-05-2023 Alpha 2 globulin Elph [Mass/Vol] 0.8 g/dL 0.4-1.0 [facility] Serum or plasma beta globuli n measurement by electrophoresis (mass/volume)Ordered By: Brook Huddleston on 01-05-2023 Beta globulin Elph [Mass/Vol] 0.9 g/dL 0.7-1.3 [facility] Serum or plasma gamma globul in measurement by electrophoresis (mass/volume)Ordered By: Brook Huddleston on 01-05-2023 Gamma globulin Elph [Mass/Vol] 0.7 g/dL 0.4-1.8 [facility] Specific gravity Auto test s trip (U) [Rel density]Ordered By: Price Crain on 01-05-2023 Specific gravity (U) [Rel density] 1.016 1.001-1.03 0 [facility] Squamous epithelial cells de tection in urine sediment by light microscopyOrdered By: Price Crain on 01-05-2023 Epithelial cells.squamous LM Ql (Urine sed) None seen [HPF] 0-2 [facility] Transferrin [Mass/volume] in Serum or PlasmaOrdered By: Price Crain on 01-05-2023 Transferrin [Mass/Vol] 177 mg/dL 203-362 [facility] Urate [Mass/volume] in Serum or PlasmaOrdered By: Price Crain on 01-05-2023 Urate [Mass/Vol] 4.7 mg/dL 2.4-7.6 [facility] Urine alpha 1 globulin/total protein by electrophoresisOrdered By: Brook Huddleston on 01-05-2023 Alpha 1 globulin Elph (U) [Mass fraction] 4.7 % . [facility] Urine alpha 2 globulin/total protein ratio by electrophoresisOrdered By: Brook Huddleston on 01-05-2023 Alpha 2 globulin Elph (U) [Mass fraction] 11.1 % . [facility] Urine bacteria detection by automated methodOrdered By: Price Crain on 01-05-2023 Bacteria Auto Ql (U) 4+ None Seen [facility] Urine beta globulin measurem ent by electrophoresis (mass/volume)Ordered By: Brook Huddleston on 01-05-2023 Beta globulin Elph (U) [Mass/Vol] 14.6 % . [facility] Urine clarity by refractomet ry automatedOrdered By: Price Crain on 01-05-2023 Clarity Refractometry automated (U) Turbid Clear [facility] Urine culture routineOrdered By: Price Crain on 01-05-2023 Bacteria identified Cx Nom (U) Strep agalactiae - (group b) [facility] Bacteria identified Cx Nom (U) Stenotrophomonas maltophilia [facility] Urine glucose measurement by automated test strip (mass/volume)Ordered By: Price Crain on 01-05-2023 Glucose Auto test strip (U) [Mass/Vol] Normal mg/dL Normal [facility] Urine hemoglobin detection b y automated test stripOrdered By: Price Crain on 01-05-2023 Hemoglobin Auto test strip Ql (U) 3+ Negative [facility] Urine leukocyte esterase det ection by automated test stripOrdered By: Price Crain on 01-05-2023 Leukocyte esterase Auto test strip Ql (U) 4+ Negative [facility] Urine protein/creatinine rat ioOrdered By: Price Crain on 01-05-2023 Protein/Creatinine (U) [Ratio] 833 mg/g{Cre} 0-200 [facility] Urobilinogen Auto test strip (U) [Mass/Vol]Ordered By: Price Crain on 01-05-2023 Urobilinogen (U) [Mass/Vol] Normal mg/dL Normal [facility] Vitamin D+Metabolites [Mass/ volume] in Serum or PlasmaOrdered By: Price Crain on 01-05-2023 Vitamin D+Metabolites [Mass/Vol] 40.8 ng/mL 30-100 [facility] Comment on above: VITAMIN D STATUS 25( [place])VITAMIN D RANGE (ng/mL) Deficient <20 Insufficient 20 to <30Sufficient 30 to 100Reference: Dieudonne ABEL,Brendon GUERRA, Estrella CARTER, et al. Evaluation,treatment, and prevention of vitamin D deficiency; an Endocrine Society clinical practice guideline. JCEM. 2010; 96(7):1911-30. Yeast detection in urine sed iment by light microscopyOrdered By: Price Crain on 01-05-2023 Yeast LM Ql (Urine sed) None seen [HPF] None Se en [facility] pH Auto test strip (U)Ordere d By: Price Crain on 01-05-2023 pH (U) 6.0 [pH] 5.0-9.0 [facility] Calcium [Mass/volume] in Ser um or PlasmaOrdered By: Orquidea Cortez on 12-17-2022 Calcium [Mass/Vol] 8.7 mg/dL 8.6-10.3 [facility] Carbon dioxide, total [Moles /volume] in Serum or PlasmaOrdered By: Orquidea Cortez on 12-17-2022 CO2 [Moles/Vol] 21.7 mmol/L 21.0-31.0 [facility] Chloride [Moles/volume] in S valeria or PlasmaOrdered By: Orquidea Cortez on 12-17-2022 Chloride [Moles/Vol] 107 mmol/L 98-107 [facility] Creatinine [Mass/volume] in Serum or PlasmaOrdered By: Orquidea Cortez on 12-17-2022 Creatinine [Mass/Vol] 1.84 mg/dL 0.70-1.30 [facility] Glucose [Mass/volume] in Ser um or PlasmaOrdered By: Orquidea Cortez on 12-17-2022 Glucose [Mass/Vol] 194 mg/dL 70-100 [facility] Comment on above: ADA recommended refe rence rangeRandom Glucose Reference Range is dependent on time and content of last meal. Glucose of more than 200 mg/dL in a nonstressed, ambulatory subject supports the diagnosis of Diabetes Mellitus. No Panel InformationOrdered By: Orquidea Cortez on 12-17-2022 Estimated GFR (CKD-EPI) 37.293 mL/Min [facility] Creatinine Clearance (Chem N/A [facility] Potassium [Moles/volume] in Serum or PlasmaOrdered By: Orquidea Cortez on 12-17-2022 Potassium [Moles/Vol] 5.3 mmol/L 3.5-5.1 [facility] Serum or plasma anion gap de terminationOrdered By: Orquidea Cortez on 12-17-2022 Anion gap [Moles/Vol] 12.6 mmol/L 6.0-15.0 [facility] Sodium [Moles/volume] in Ser um or PlasmaOrdered By: Orquidea Cortez on 12-17-2022 Sodium [Moles/Vol] 136 mmol/L 136-145 [facility] Urea nitrogen [Mass/volume] in Serum or PlasmaOrdered By: Orquidea Cortez on 12-17-2022 Urea nitrogen [Mass/Vol] 22 mg/dL 7 [facility] Alanine aminotransferase [En zymatic activity/volume] in Serum or PlasmaOrdered By: Brook Huddleston on 12-11-2022 ALT [Catalytic activity/Vol] 15 U/L 752 [facility] Albumin [Mass/volume] in Ser um or Plasma by Bromocresol green (BCG) dye binding methoOrdered By: Brook Huddleston on 12-11-2022 Albumin BCG dye [Mass/Vol] 3.8 g/dL 3.5-5.7 [facility] Alkaline phosphatase [Enzyma tic activity/volume] in Serum or PlasmaOrdered By: Brook Huddleston on 12-11-2022 ALP [Catalytic activity/Vol] 91 U/L 34-104 [facility] Anisocytosis LM Ql (Bld)Orde red By: Brook Huddleston on 12-11-2022 Anisocytosis Ql (Bld) Slight [facility] Anisocytosis Ql (Bld) Anisocytosis [Pres ence] in Blood by Light microscopy [facility] Aspartate aminotransferase [ Enzymatic activity/volume] in Serum or PlasmaOrdered By: Brook Huddleston on 12-11-2022 AST [Catalytic activity/Vol] 12 U/L 13-39 [facility] Basophils Auto (Bld) [#/Vol] Ordered By: Brook Huddleston on 12-11-2022 Basophils (Bld) [#/Vol] 0.0 10*3/uL 0.0-0.2 [facility] Basophils/100 WBC Auto (Bld) Ordered By: Brook Huddleston on 12-11-2022 Basophils/100 WBC (Bld) 0.2 % . [facility] Bilirubin.total [Mass/volume ] in Serum or PlasmaOrdered By: Brook Huddleston on 12-11-2022 Bilirubin [Mass/Vol] 0.4 mg/dL 0.3-1.0 [facility] Calcium [Mass/volume] in Ser um or PlasmaOrdered By: Brook Huddleston on 12-11-2022 Calcium [Mass/Vol] 8.4 mg/dL 8.6-10.3 [facility] Carbon dioxide, total [Moles /volume] in Serum or PlasmaOrdered By: Brook Huddleston on 12-11-2022 CO2 [Moles/Vol] 22.6 mmol/L 21.0-31.0 [facility] Chloride [Moles/volume] in S valeria or PlasmaOrdered By: Brook Huddletson on 12-11-2022 Chloride [Moles/Vol] 100 mmol/L 98-107 [facility] Creatinine [Mass/volume] in Serum or PlasmaOrdered By: Brook Huddleston on 12-11-2022 Creatinine [Mass/Vol] 1.87 mg/dL 0.70-1.30 [facility] Eosinophils Auto (Bld) [#/Vo l]Ordered By: Brook Huddleston on 12-11-2022 Eosinophils (Bld) [#/Vol] 0.0 10*3/uL 0.0-0.45 [facility] Eosinophils/100 WBC Auto (Bl d)Ordered By: Brook Huddleston on 12-11-2022 Eosinophils/100 WBC (Bld) 0.1 % . [facility] Erythrocyte distribution wid th Auto (RBC) [Ratio]Ordered By: Brook Huddleston on 12-11-2022 Erythrocyte distribution width (RBC) [Ratio] 16.0 % 12.0-14.8 [facility] Globulin Calc (S) [Mass/Vol] Ordered By: Brook Huddleston on 12-11-2022 Globulin (S) [Mass/Vol] 2.4 g/dL [facility] Glucose [Mass/volume] in Ser um or PlasmaOrdered By: Brook Huddleston on 12-11-2022 Glucose [Mass/Vol] 349 mg/dL 70-100 [facility] Comment on above: ADA recommended refe rence rangeRandom Glucose Reference Range is dependent on time and content of last meal. Glucose of more than 200 mg/dL in a nonstressed, ambulatory subject supports the diagnosis of Diabetes Mellitus. Hematocrit Auto (Bld) [Volum e fraction]Ordered By: Brook Huddleston on 12-11-2022 Hematocrit (Bld) [Volume fraction] 27.8 % 38.8-50.0 [facility] Hemoglobin [Mass/volume] in BloodOrdered By: Brook Huddleston on 12-11-2022 Hemoglobin (Bld) [Mass/Vol] 9.3 g/dL 13.0-17.0 [facility] Leukocytes [#/volume] correc lizbet for nucleated erythrocytes in Blood by Automated counOrdered By: Brook Huddleston on 12-11-2022 WBC corrected for nucl RBC Auto (Bld) [#/Vol] 10.2 10*3/uL 4.1-10.5 [facility] Lymphocytes Auto (Bld) [#/Vo l]Ordered By: Brook Huddleston on 12-11-2022 Lymphocytes (Bld) [#/Vol] 0.7 10*3/uL 1.00-4.8 [facility] Lymphocytes/100 WBC Auto (Bl d)Ordered By: Brook Huddleston on 12-11-2022 Lymphocytes/100 WBC (Bld) 7.2 % . [facility] MCH Auto (RBC) [Entitic mass ]Ordered By: Brook Huddleston on 12-11-2022 MCH (RBC) [Entitic mass] 38.0 pg 27.5-35.2 [facility] MCHC Auto (RBC) [Mass/Vol]Or dered By: Brook Huddleston on 12-11-2022 MCHC (RBC) [Mass/Vol] 33.6 g/dL 32.5-35.6 [facility] MCV Auto (RBC) [Entitic vol] Ordered By: Brook Huddleston on 12-11-2022 MCV (RBC) [Entitic vol] 113.0 fL 83.5-101 [facility] Macrocytes LM Ql (Bld)Ordere d By: Brook Huddleston on 12-11-2022 Macrocytes Ql (Bld) Slight [facility] Macrocytes Ql (Bld) Macrocytes [Presence ] in Blood by Light microscopy [facility] Monocytes Auto (Bld) [#/Vol] Ordered By: Brook Huddleston on 12-11-2022 Monocytes (Bld) [#/Vol] 0.5 10*3/uL 0.0-0.8 [facility] Monocytes/100 WBC Auto (Bld) Ordered By: Brook Huddleston on 12-11-2022 Monocytes/100 WBC (Bld) 5.2 % . [facility] Neutrophils Auto (Bld) [#/Vo l]Ordered By: Brook Huddleston on 12-11-2022 Neutrophils (Bld) [#/Vol] 8.8 10*3/uL 1.8-7.7 [facility] Neutrophils/100 WBC Auto (Bl d)Ordered By: Brook Huddleston on 12-11-2022 Neutrophils/100 WBC (Bld) 87.3 % . [facility] No Panel InformationOrdered By: Brook Huddleston on 12-11-2022 Estimated GFR (CKD-EPI) 36.576 mL/Min [facility] Creatinine Clearance (Chem 37.68 [facility] Nucleated erythrocytes [Pres ence] in Blood by Automated countOrdered By: Brook Huddleston on 12-11-2022 Nucleated RBC Auto Ql (Bld) 0.0 /100{WBC} 0-0.5 [facility] Platelet adequacy [Presence] in Blood by Light microscopyOrdered By: Brook Huddleston on 12-11-2022 Platelets LM Ql (Bld) Decreased Low Normal [facility] Platelets LM Ql (Bld) Platelet adequacy [Presence] in Blood by Light microscopy Low Normal [facility] Platelet mean volume Auto (B ld) [Entitic vol]Ordered By: Brook Huddleston on 12-11-2022 Platelet mean volume (Bld) [Entitic vol] 9.8 fL 6.6-10.1 [facility] Platelet morphology finding [Identifier] in BloodOrdered By: Brook Huddleston on 12-11-2022 Platelet morphology finding Nom (Bld) Normal Normal [facility] Platelet morphology finding Nom (Bld) Platelet morphology finding [Identifier] in Blood Normal [facility] Platelets Auto (Bld) [#/Vol] Ordered By: Brook Huddleston on 12-11-2022 Platelets (Bld) [#/Vol] 117 10*3/uL 150-450 [facility] Potassium [Moles/volume] in Serum or PlasmaOrdered By: Brook Huddleston on 12-11-2022 Potassium [Moles/Vol] 5.0 mmol/L 3.5-5.1 [facility] Protein [Mass/volume] in Ser um or PlasmaOrdered By: Brook Huddleston on 12-11-2022 Protein [Mass/Vol] 6.2 g/dL 6.4-8.9 [facility] RBC Auto (Bld) [#/Vol]Ordere d By: Brook Huddleston on 12-11-2022 RBC (Bld) [#/Vol] 2.46 10*6/uL 3.90-5.60 [facility] RBC morphologyOrdered By: Black Huddleston on 12-11-2022 RBC morphology finding Nom (Bld) N/A [facility] RBC morphology finding Nom (Bld) RBC morphology [facility] Schistocytes [Presence] in B lood by Light microscopyOrdered By: Broko Huddleston on 12-11-2022 Schistocytes LM Ql (Bld) Slight [facility] Schistocytes LM Ql (Bld) Schistocytes [Presence] in Blood by Light microscopy [facility] Serum or plasma albumin/glob ulin mass ratioOrdered By: Brook Huddleston on 12-11-2022 Albumin/Globulin [Mass ratio] 1.6 {ratio} [facility] Serum or plasma anion gap de terminationOrdered By: Brook Huddleston on 12-11-2022 Anion gap [Moles/Vol] 13.4 mmol/L 6.0-15.0 [facility] Sodium [Moles/volume] in Ser um or PlasmaOrdered By: Brook Huddleston on 12-11-2022 Sodium [Moles/Vol] 131 mmol/L 136-145 [facility] Urea nitrogen [Mass/volume] in Serum or PlasmaOrdered By: Brook Huddleston on 12-11-2022 Urea nitrogen [Mass/Vol] 30 mg/dL 03-10 [facility] WBC Auto (Bld) [#/Vol]Ordere d By: Brook Huddleston on 12-11-2022 WBC (Bld) [#/Vol] 10.2 10*3/uL 4.1-10.5 [facility] POINT OF CARE GLUCOSEon 11-16 Glucose [Mass/Vol] 284 mg/dL Critically high 74-106 [facility] Comment on above: Performed By: #### P TT, PT #### [facility] [address] [address] [address] Lydia Merritt CBC AUTO DIFFon 12-08-2022 BASO # 0.0 103/ul Normal 0.0-0.1 [facility] Comment on above: Performed By: #### P TT, PT #### [facility] [address] [address] [address] Lydia Merritt Basophils/100 WBC (Bld) 0.1 % Critically low 0.2-2.0 [facility] Comment on above: Performed By: #### P TT, PT #### [facility] [address] [address] [address] Lydia Merritt EO # 0.2 103/ul Normal 0.0-0.7 [facility] Comment on above: Performed By: #### P TT, PT #### [facility] [address] [address] [address] Lydia Merritt Eosinophils/100 WBC (Bld) 1.6 % Normal 0.9-7.0 [facility] Comment on above: Performed By: #### P TT, PT #### [facility] [address] [address] [address] Lydia Merritt Erythrocyte distribution width (RBC) [Ratio] 15.2 % Critically high 11.0-15.0 [facility] Comment on above: Performed By: #### P TT, PT #### [facility] [address] [place] [address] Dr. Lydia Merritt Hematocrit (Bld) [Volume fraction] 30.6 % Critically low 42.0-54.0 [facility] Comment on above: Performed By: #### P TT, PT #### [facility] [address] [place] [address] Dr. Lydia Merritt Hemoglobin (Bld) [Mass/Vol] 10.2 g/dL Critically low 14.0-18.0 [facility] Comment on above: Performed By: #### P TT, PT #### [facility] [address] [place] [address] Dr. Lydia Merritt IG # 0.05 10e3/ul Critically high 0.00-0.03 [facility] Comment on above: Performed By: #### P TT, PT #### [facility] [address] [place] [address] Dr. Lydia Merritt IG % 0.5 % Normal 0.0-0.5 [facility] Comment on above: Performed By: #### P TT, PT #### [facility] [address] [place] [address] Dr. Lydia Merritt LYMPH # 0.8 103/ul Critically low 1.2-3.8 [facility] Comment on above: Performed By: #### P TT, PT #### [facility] [address] [place] [address] Dr. Lydia Merritt Lymphocytes/100 WBC (Bld) 8.2 % Critically low 20.5-60.0 [facility] Comment on above: Performed By: #### P TT, PT #### [facility] [address] [place] [address] Dr. Lydia Merritt MANUAL DIFF REQ NO Normal [facility] Comment on above: Performed By: #### P TT, PT #### [facility] [address] [place] [address] Dr. Lydia Merritt MCH (RBC) [Entitic mass] 37.9 pg Critically high 25.9-34.0 [facility] Comment on above: Performed By: #### P TT, PT #### [facility] [address] [place] [address] Dr. Lydia Merritt MCHC (RBC) [Mass/Vol] 33.3 g/dL Normal 29.9-35.2 [facility] Comment on above: Performed By: #### P TT, PT #### [facility] [address] [place] [address] Dr. Lydia Merritt MCV (RBC) [Entitic vol] 113.8 fL Critically high 80.0-94 .0 [facility] Comment on above: Result Comment: 2+ m acrocytosis Performed By: #### P TT, PT #### [facility] [address] [place] [address] Dr. Lydia Merritt MONO # 0.5 103/ul Normal 0.3-0.8 [facility] Comment on above: Performed By: #### P TT, PT #### [facility] [address] [place] [address] Dr. Lydia Merritt Monocytes/100 WBC (Bld) 5.4 % Normal 1.7-12.0 [facility] Comment on above: Performed By: #### P TT, PT #### [facility] [address] [place] [address] Dr. Lydia Merritt NEUT # 7.9 103/ul Critically high 1.4-6.5 [facility] Comment on above: Performed By: #### P TT, PT #### [facility] [address] [place] [address] Dr. Lydia Merritt Neutrophils/100 WBC (Bld) 84.2 % Critically high 43.0-75.0 [facility] Comment on above: Performed By: #### P TT, PT #### [facility] [address] [place] [address] Dr. Lydia Merritt Platelet mean volume (Bld) [Entitic vol] 10.9 fL Normal 9.5-13.5 [facility] Comment on above: Performed By: #### P TT, PT #### [facility] [address] [place] [address] Dr. Lydia Merritt PLT 117 103/ul Critically low 150-450 [facility] Comment on above: Performed By: #### P TT, PT #### [facility] [address] [place] [address] Dr. Lydia Merritt RBC 2.69 106/ul Critically low 4.70-6.10 [facility] Comment on above: Performed By: #### P TT, PT #### [facility] [address] [place] [address] Dr. Lydia Merritt WBC 9.4 103/ul Normal 4.0-11.0 [facility] Comment on above: Performed By: #### P TT, PT #### [facility] [address] [place] [address] Dr. Lydia Merritt PROF CHEM 8 (BAS METB)on Anion gap [Moles/Vol] 14.6 mmol/L Normal Th [facility] Comment on above: Performed By: #### B MP #### [facility] [address] [place] [address] Dr. Lydia Merritt Calcium [Mass/Vol] 9.1 mg/dL Normal 8.5-10.1 [facility] Comment on above: Performed By: #### B MP #### [facility] [address] [place] [address] Dr. Lydia Merritt Chloride [Moles/Vol] 101 mmol/L Normal 98-107 [facility] Comment on above: Performed By: #### B MP #### [facility] [address] [place] [address] Dr. Lydia Merritt CO2 [Moles/Vol] 25.4 mmol/L Normal 21.0-32.0 [facility] Comment on above: Performed By: #### B MP #### [facility] [address] [place] [address] Dr. Lydia Merritt Creatinine [Mass/Vol] 1.78 mg/dL Critically high 0.70-1.30 [facility] Comment on above: Performed By: #### B MP #### [facility] [address] [place] [address] Dr. Lydia Merritt EGFR-AF CAMBODIAN 45 mL/min/1.73m2 Critically low >=60 [facility] Comment on above: Performed By: #### B MP #### [facility] [address] [address] [address] Lydia Merritt EGFR-NON AF CAMBODIAN 37 mL/min/1.73m2 Critically low >=60 [facility] Comment on above: Performed By: #### B MP #### [facility] [address] [address] [address] Lydia Merritt Glucose [Mass/Vol] 413 mg/dL Critically high 74-106 [facility] Comment on above: Performed By: #### B MP #### [facility] [address] [address] [address] Lydia Merritt Potassium [Moles/Vol] 5.0 mmol/L Normal 3.5-5.1 [facility] Comment on above: Performed By: #### B MP #### [facility] [address] [address] [address] Lydia Merritt Sodium [Moles/Vol] 136 mmol/L Normal 136-145 [facility] Comment on above: Performed By: #### B MP #### [facility] [address] [address] [address] Lydia Merritt Urea nitrogen [Mass/Vol] 30.0 mg/dL Critically high 7.0-18.0 [facility] Comment on above: Performed By: #### B MP #### [facility] [address] [address] [address] Lydia Merritt Urea nitrogen/Creatinine [Mass ratio] 16.9 mg/mg Normal [facility] Comment on above: Performed By: #### B MP #### [facility] [address] [address] [address] Lydia Merritt PROTIMEon 12-08-2022 INR Coag (PPP) [Relative time] 0.95 {INR} Normal [facility] Comment on above: Performed By: #### P TT, PT #### [facility] [address] [place] [address] Dr. Lydia Merritt INR GUIDELINES SEE BELOW Normal [facility] Comment on above: Result Comment: DILLON RED INR: 2.0 - 3.0 CONDITIONS NOT LISTED BELOW 2.5 - 3.5 FOR PROSTHETIC HEART VALVE REPLACEMENT 2.5 - 3.5 RECURRENT THROMBOSIS Performed By: #### P TT, PT #### [facility] [address] [place], [place] [address] Dr. Lydia Merritt PT Coag (PPP) [Time] 10.1 s Normal 9.0-11.6 [facility] Comment on above: Performed By: #### P TT, PT #### [facility] [address] [place], [place] [address] Dr. Lydia Merritt PTTon 12-08-2022 aPTT Coag (Bld) [Time] 22.6 s Normal 22.3-36.2 [facility] [place] Comment on above: Performed By: #### P TT, PT #### [facility] [id number] Lydia Merritt Calcium [Mass/volume] in Ser um or PlasmaOrdered By: Orquidea Cortez on 12-01-2022 Calcium [Mass/Vol] 8.8 mg/dL 8.6-10.3 [facility] Carbon dioxide, total [Moles /volume] in Serum or PlasmaOrdered By: Orquidea Cortez on 12-01-2022 CO2 [Moles/Vol] 23.9 mmol/L 21.0-31.0 [facility] Chloride [Moles/volume] in S valeria or PlasmaOrdered By: Orquidea Cortez on 12-01-2022 Chloride [Moles/Vol] 104 mmol/L 98-107 [facility] Creatinine [Mass/volume] in Serum or PlasmaOrdered By: Orquidea Cortez on 12-01-2022 Creatinine [Mass/Vol] 1.77 mg/dL 0.70-1.30 [facility] Glucose [Mass/volume] in Ser um or PlasmaOrdered By: Orquidea Cortez on 12-01-2022 Glucose [Mass/Vol] 208 mg/dL 70-100 [facility] Comment on above: ADA recommended refe rence rangeRandom Glucose Reference Range is dependent on time and content of last meal. Glucose of more than 200 mg/dL in a nonstressed, ambulatory subject supports the diagnosis of Diabetes Mellitus. No Panel InformationOrdered By: Orquidea Cortez on 12-01-2022 Estimated GFR (CKD-EPI) 39.069 mL/Min [facility] Creatinine Clearance (Chem N/A [facility] Potassium [Moles/volume] in Serum or PlasmaOrdered By: Orquidea Cortez on 12-01-2022 Potassium [Moles/Vol] 4.4 mmol/L 3.5-5.1 [facility] [facility] Serum or plasma anion gap de terminationOrdered By: Orquidea Cortez on 12-01-2022 Anion gap [Moles/Vol] 12.5 mmol/L 6.0-15.0 [facility] Sodium [Moles/volume] in Ser um or PlasmaOrdered By: Orquidea Cortez on 12-01-2022 Sodium [Moles/Vol] 136 mmol/L 136-145 [facility] Urea nitrogen [Mass/volume] in Serum or PlasmaOrdered By: Orquidea Cortez on 12-01-2022 Urea nitrogen [Mass/Vol] 40 mg/dL 7-25 [facility] Alanine aminotransferase [En zymatic activity/volume] in Serum or PlasmaOrdered By: Brook Huddleston on 11-27-2022 ALT [Catalytic activity/Vol] 22 U/L 7-52 [facility] Albumin [Mass/volume] in Ser um or Plasma by Bromocresol green (BCG) dye binding methoOrdered By: Brook Huddleston on 11-27-2022 Albumin BCG dye [Mass/Vol] 4.1 g/dL 3.5-5.7 [facility] Alkaline phosphatase [Enzyma tic activity/volume] in Serum or PlasmaOrdered By: Brook Huddleston on 11-27-2022 ALP [Catalytic activity/Vol] 140 U/L 34-104 [facility] Anisocytosis LM Ql (Bld)Orde red By: Brook Huddleston on 11-27-2022 Anisocytosis Ql (Bld) Moderate [facility] Aspartate aminotransferase [ Enzymatic activity/volume] in Serum or PlasmaOrdered By: Brook Huddleston on 11-27-2022 AST [Catalytic activity/Vol] 17 U/L 13-39 [facility] Basophils Auto (Bld) [#/Vol] Ordered By: Brook Huddleston on 11-27-2022 Basophils (Bld) [#/Vol] 0.0 10*3/uL 0.0-0.2 [facility] Basophils/100 WBC Auto (Bld) Ordered By: Brook Huddleston on 11-27-2022 Basophils/100 WBC (Bld) 0.5 % . [facility] Bilirubin.total [Mass/volume ] in Serum or PlasmaOrdered By: Brook Huddleston on 11-27-2022 Bilirubin [Mass/Vol] 0.5 mg/dL 0.3-1.0 [facility] Calcium [Mass/volume] in Ser um or PlasmaOrdered By: Brook Huddleston on 11-27-2022 Calcium [Mass/Vol] 8.8 mg/dL 8.6-10.3 [facility] Carbon dioxide, total [Moles /volume] in Serum or PlasmaOrdered By: Brook Huddleston on 11-27-2022 CO2 [Moles/Vol] 22.7 mmol/L 21.0-31.0 [facility] Chloride [Moles/volume] in S valeria or PlasmaOrdered By: Brook Huddleston on 11-27-2022 Chloride [Moles/Vol] 105 mmol/L 98-107 [facility] Creatinine [Mass/volume] in Serum or PlasmaOrdered By: Brook Huddleston on 11-27-2022 Creatinine [Mass/Vol] 2.23 mg/dL 0.70-1.30 [facility] Eosinophils Auto (Bld) [#/Vo l]Ordered By: Brook Huddleston on 11-27-2022 Eosinophils (Bld) [#/Vol] 0.2 10*3/uL 0.0-0.45 [facility] Eosinophils/100 WBC Auto (Bl d)Ordered By: Brook Huddleston on 11-27-2022 Eosinophils/100 WBC (Bld) 3.1 % . [facility] Erythrocyte distribution wid th Auto (RBC) [Ratio]Ordered By: Brook Huddleston on 11-27-2022 Erythrocyte distribution width (RBC) [Ratio] 16.3 % 12.0-14.8 [facility] Globulin Calc (S) [Mass/Vol] Ordered By: Brook Huddleston on 11-27-2022 Globulin (S) [Mass/Vol] 2.6 g/dL [facility] Glucose [Mass/volume] in Ser um or PlasmaOrdered By: Brook Huddleston on 11-27-2022 Glucose [Mass/Vol] 219 mg/dL 70-100 [facility] Comment on above: ADA recommended refe rence rangeRandom Glucose Reference Range is dependent on time and content of last meal. Glucose of more than 200 mg/dL in a nonstressed, ambulatory subject supports the diagnosis of Diabetes Mellitus. Hematocrit Auto (Bld) [Volum e fraction]Ordered By: Brook Huddleston on 11-27-2022 Hematocrit (Bld) [Volume fraction] 30.2 % 38.8-50.0 [facility] Hemoglobin [Mass/volume] in BloodOrdered By: Brook Huddleston on 11-27-2022 Hemoglobin (Bld) [Mass/Vol] 10.2 g/dL 13.0-17.0 [facility] Leukocytes [#/volume] correc lizbet for nucleated erythrocytes in Blood by Automated counOrdered By: Brook Huddleston on 11-27-2022 WBC corrected for nucl RBC Auto (Bld) [#/Vol] 7.1 10*3/uL 4.1-10.5 [facility] Lymphocytes Auto (Bld) [#/Vo l]Ordered By: Brook Huddleston on 11-27-2022 Lymphocytes (Bld) [#/Vol] 0.9 10*3/uL 1.00-4.8 [facility] Lymphocytes/100 WBC Auto (Bl d)Ordered By: Brook Huddleston on 11-27-2022 Lymphocytes/100 WBC (Bld) 12.7 % . [facility] MCH Auto (RBC) [Entitic mass ]Ordered By: Brook Huddleston on 11-27-2022 MCH (RBC) [Entitic mass] 38.1 pg 27.5-35.2 [facility] MCHC Auto (RBC) [Mass/Vol]Or dered By: Brook Huddleston on 11-27-2022 MCHC (RBC) [Mass/Vol] 33.8 g/dL 32.5-35.6 [facility] MCV Auto (RBC) [Entitic vol] Ordered By: Brook Huddleston on 11-27-2022 MCV (RBC) [Entitic vol] 112.7 fL 83.5-101 [facility] Macrocytes LM Ql (Bld)Ordere d By: Brook Huddleston on 11-27-2022 Macrocytes Ql (Bld) Slight [facility] Monocytes Auto (Bld) [#/Vol] Ordered By: Brook Huddleston on 11-27-2022 Monocytes (Bld) [#/Vol] 0.6 10*3/uL 0.0-0.8 [facility] Monocytes/100 WBC Auto (Bld) Ordered By: Brook Huddleston on 11-27-2022 Monocytes/100 WBC (Bld) 7.7 % . [facility] Neutrophils Auto (Bld) [#/Vo l]Ordered By: Brook Huddleston on 11-27-2022 Neutrophils (Bld) [#/Vol] 5.4 10*3/uL 1.8-7.7 [facility] Neutrophils/100 WBC Auto (Bl d)Ordered By: Brook Huddleston on 11-27-2022 Neutrophils/100 WBC (Bld) 76.0 % . [facility] No Panel InformationOrdered By: Brook Huddleston on 11-27-2022 Estimated GFR (CKD-EPI) 29.610 mL/Min [facility] Creatinine Clearance (Chem 31.59 [facility] Nucleated erythrocytes [Pres ence] in Blood by Automated countOrdered By: Brook Huddleston on 11-27-2022 Nucleated RBC Auto Ql (Bld) 0.1 /100{WBC} 0-0.5 [facility] Ovalocyte detectionOrdered B y: Brook Huddleston on 11-27-2022 Ovalocytes LM Ql (Bld) [facility] Ovalocytes LM Ql (Bld) Ovalocyte detection [facility] Platelet adequacy [Presence] in Blood by Light microscopyOrdered By: Brook Huddleston on 11-27-2022 Platelets LM Ql (Bld) Decreased Normal [facility] Platelet mean volume Auto (B ld) [Entitic vol]Ordered By: Brook Huddleston on 11-27-2022 Platelet mean volume (Bld) [Entitic vol] 9.6 fL 6.6-10.1 [facility] Platelet morphology finding [Identifier] in BloodOrdered By: Brook Huddleston on 11-27-2022 Platelet morphology finding Nom (Bld) Normal Normal [facility] Platelets Auto (Bld) [#/Vol] Ordered By: Brook Huddleston on 11-27-2022 Platelets (Bld) [#/Vol] 129 10*3/uL 150-450 [facility] Poikilocytosis [Presence] in Blood by Light microscopyOrdered By: Brook Huddleston on 11-27-2022 Poikilocytosis LM Ql (Bld) Moderate [facility] Poikilocytosis LM Ql (Bld) Poikilocytosis [Presence] in Blood by Light microscopy [facility] Polychromasia [Presence] in Blood by Light microscopyOrdered By: Brook Huddleston on 11-27-2022 Polychromasia LM Ql (Bld) Slight [facility] Polychromasia LM Ql (Bld) Polychromasia [Presence] in Blood by Light microscopy [facility] Potassium [Moles/volume] in Serum or PlasmaOrdered By: Brook Huddleston on 11-27-2022 Potassium [Moles/Vol] 5.3 mmol/L 3.5-5.1 [facility] Protein [Mass/volume] in Ser um or PlasmaOrdered By: Brook Huddleston on 11-27-2022 Protein [Mass/Vol] 6.7 g/dL 6.4-8.9 [facility] RBC Auto (Bld) [#/Vol]Ordere d By: Brook Huddleston on 11-27-2022 RBC (Bld) [#/Vol] 2.68 10*6/uL 3.90-5.60 [facility] RBC morphologyOrdered By: Black Huddleston on 11-27-2022 RBC morphology finding Nom (Bld) N/A [facility] Serum or plasma albumin/glob ulin mass ratioOrdered By: Brook Huddleston on 11-27-2022 Albumin/Globulin [Mass ratio] 1.6 {ratio} [facility] Serum or plasma anion gap de terminationOrdered By: Brook Huddletson on 11-27-2022 Anion gap [Moles/Vol] 13.6 mmol/L 6.0-15.0 [facility] Sodium [Moles/volume] in Ser um or PlasmaOrdered By: Brook Huddleston on 11-27-2022 Sodium [Moles/Vol] 136 mmol/L 136-145 [facility] Teardrop cell detectionOrder ed By: Brook Huddleston on 11-27-2022 Dacrocytes LM Ql (Bld) Slight [facility] Dacrocytes LM Ql (Bld) Teardrop cell detection [facility] Urea nitrogen [Mass/volume] in Serum or PlasmaOrdered By: Brook Huddleston on 11-27-2022 Urea nitrogen [Mass/Vol] 40 mg/dL 7-25 [facility] WBC Auto (Bld) [#/Vol]Ordere d By: Brook Huddleston on 11-27-2022 WBC (Bld) [#/Vol] 7.1 10*3/uL 4.1-10.5 [facility] Calcium [Mass/volume] in Ser um or PlasmaOrdered By: Orquidea Cortez on 11-17-2022 Calcium [Mass/Vol] 9.5 mg/dL 8.6-10.3 [facility] Carbon dioxide, total [Moles /volume] in Serum or PlasmaOrdered By: Orquidea Cortez on 11-17-2022 CO2 [Moles/Vol] 23.9 mmol/L 21.0-31.0 [facility] Chloride [Moles/volume] in S valeria or PlasmaOrdered By: Orquidea Cortez on 11-17-2022 Chloride [Moles/Vol] 104 mmol/L 98-107 [facility] Creatinine [Mass/volume] in Serum or PlasmaOrdered By: Orquidea Cortez on 11-17-2022 Creatinine [Mass/Vol] 1.87 mg/dL 0.70-1.30 [facility] Glucose [Mass/volume] in Ser um or PlasmaOrdered By: Orquidea Cortez on 11-17-2022 Glucose [Mass/Vol] 133 mg/dL 70-100 [facility] Comment on above: ADA recommended refe rence rangeRandom Glucose Reference Range is dependent on time and content of last meal. Glucose of more than 200 mg/dL in a nonstressed, ambulatory subject supports the diagnosis of Diabetes Mellitus. No Panel InformationOrdered By: Orquidea Cortez on 11-17-2022 Estimated GFR (CKD-EPI) 36.576 mL/Min [facility] Creatinine Clearance (Chem N/A [facility] Potassium [Moles/volume] in Serum or PlasmaOrdered By: Orquidea Cortez on 11-17-2022 Potassium [Moles/Vol] 4.8 mmol/L 3.5-5.1 [facility] Serum or plasma anion gap de terminationOrdered By: Orquidea Cortez on 11-17-2022 Anion gap [Moles/Vol] 12.9 mmol/L 6.0-15.0 [facility] Sodium [Moles/volume] in Ser um or PlasmaOrdered By: Orquidea Cortez on 11-17-2022 Sodium [Moles/Vol] 136 mmol/L 136-145 [facility] Urea nitrogen [Mass/volume] in Serum or PlasmaOrdered By: Orquidea Cortez on 11-17-2022 Urea nitrogen [Mass/Vol] 27 mg/dL 7-25 [facility] Alanine aminotransferase [En zymatic activity/volume] in Serum or PlasmaOrdered By: Brook Huddleston on 11-11-2022 ALT [Catalytic activity/Vol] 18 U/L 7-52 [facility] Albumin [Mass/volume] in Ser um or Plasma by Bromocresol green (BCG) dye binding methoOrdered By: Brook Huddleston on 11-11-2022 Albumin BCG dye [Mass/Vol] 4.2 g/dL 3.5-5.7 [facility] Alkaline phosphatase [Enzyma tic activity/volume] in Serum or PlasmaOrdered By: Brook Huddleston on 11-11-2022 ALP [Catalytic activity/Vol] 97 U/L 34-104 [facility] Anisocytosis LM Ql (Bld)Orde red By: Brook Huddleston on 11-11-2022 Anisocytosis Ql (Bld) Slight [facility] Aspartate aminotransferase [ Enzymatic activity/volume] in Serum or PlasmaOrdered By: Brook Huddleston on 11-11-2022 AST [Catalytic activity/Vol] 17 U/L 13-39 [facility] Basophils Auto (Bld) [#/Vol] Ordered By: Brook Huddleston on 03-28-2023 Basophils (Bld) [#/Vol] N/A [facility] Basophils/100 WBC Auto (Bld) Ordered By: Brook Huddleston on 11-11-2022 Basophils/100 WBC (Bld) N/A [facility] Bilirubin.total [Mass/volume ] in Serum or PlasmaOrdered By: Brook Huddleston on 11-11-2022 Bilirubin [Mass/Vol] 0.4 mg/dL 0.3-1.0 [facility] Calcium [Mass/volume] in Ser um or PlasmaOrdered By: Brook Huddleston on 11-11-2022 Calcium [Mass/Vol] 9.2 mg/dL 8.6-10.3 [facility] Carbon dioxide, total [Moles /volume] in Serum or PlasmaOrdered By: Brook Huddleston on 11-11-2022 CO2 [Moles/Vol] 22.1 mmol/L 21.0-31.0 [facility] Chloride [Moles/volume] in S valeria or PlasmaOrdered By: Brook Huddleston on 11-11-2022 Chloride [Moles/Vol] 107 mmol/L 98-107 [facility] Creatinine [Mass/volume] in Serum or PlasmaOrdered By: Brook Huddleston on 11-11-2022 Creatinine [Mass/Vol] 2.05 mg/dL 0.70-1.30 [facility] Eosinophils Auto (Bld) [#/Vo l]Ordered By: Brook Huddleston on 11-11-2022 Eosinophils (Bld) [#/Vol] N/A [facility] Eosinophils/100 WBC Auto (Bl d)Ordered By: Brook Huddleston on 11-11-2022 Eosinophils/100 WBC (Bld) N/A [facility] Eosinophils/100 WBC Manual c nt (Bld)Ordered By: Brook Huddleston on 11-11-2022 Eosinophils/100 WBC (Bld) 3 % 1-3 [facility] Eosinophils/100 WBC (Bld) Eosinophils/100 leukocytes in Blood by Manual count 1-3 [facility] Erythrocyte distribution wid th Auto (RBC) [Ratio]Ordered By: Brook Huddleston on 11-11-2022 Erythrocyte distribution width (RBC) [Ratio] 16.0 % 12.0-14.8 [facility] Giant platelets/100 leukocyt es [Ratio] in Blood by Manual countOrdered By: Brook Huddleston on 11-11-2022 Giant platelets/100 WBC Manual cnt (Bld) [Ratio] 1 /100{WBC} [facility] Giant platelets/100 WBC Manual cnt (Bld) [Ratio] Giant platelets/100 leukocytes [Ratio] in Blood by Manual count [facility] Globulin Calc (S) [Mass/Vol] Ordered By: Brook Huddleston on 11-11-2022 Globulin (S) [Mass/Vol] 2.5 g/dL [facility] Glucose [Mass/volume] in Ser um or PlasmaOrdered By: Brook Huddleston on 11-11-2022 Glucose [Mass/Vol] 190 mg/dL 70-100 [facility] Comment on above: ADA recommended refe rence rangeRandom Glucose Reference Range is dependent on time and content of last meal. Glucose of more than 200 mg/dL in a nonstressed, ambulatory subject supports the diagnosis of Diabetes Mellitus. Hematocrit Auto (Bld) [Volum e fraction]Ordered By: Brook Huddleston on 11-11-2022 Hematocrit (Bld) [Volume fraction] 26.7 % 38.8-50.0 [facility] Hemoglobin [Mass/volume] in BloodOrdered By: Brook Huddleston on 11-11-2022 Hemoglobin (Bld) [Mass/Vol] 9.1 g/dL 13.0-17.0 [facility] Laboratory - Chemistry and C hemistry - challengeOrdered By: Brook Huddleston on 11-11-2022 GFR/1.73 sq M.predicted MDRD (S/P/Bld) [Vol rate/Area] 32.756 mL/min/{1.73_m2} [facility] Leukocytes [#/volume] correc lizbet for nucleated erythrocytes in Blood by Automated counOrdered By: Brook Huddleston on 11-11-2022 WBC corrected for nucl RBC Auto (Bld) [#/Vol] 6.0 10*3/uL 4.1-10.5 [facility] Lymphocytes Auto (Bld) [#/Vo l]Ordered By: Brook Huddleston on 11-11-2022 Lymphocytes (Bld) [#/Vol] N/A [facility] Lymphocytes/100 WBC Auto (Bl d)Ordered By: Brook Huddleston on 11-11-2022 Lymphocytes/100 WBC (Bld) N/A [facility] Lymphocytes/100 WBC Manual c nt (Bld)Ordered By: Brook Huddleston on 11-11-2022 Lymphocytes/100 WBC (Bld) 16 % Low 18-42 [facility] Lymphocytes/100 WBC (Bld) Lymphocytes/100 leukocytes in Blood by Manual count Low 18-42 [facility] MCH Auto (RBC) [Entitic mass ]Ordered By: Brook Huddleston on 11-11-2022 MCH (RBC) [Entitic mass] 38.8 pg 27.5-35.2 [facility] MCHC Auto (RBC) [Mass/Vol]Or dered By: Brook Huddleston on 11-11-2022 MCHC (RBC) [Mass/Vol] 34.0 g/dL 32.5-35.6 [facility] MCV Auto (RBC) [Entitic vol] Ordered By: Brook Huddleston on 11-11-2022 MCV (RBC) [Entitic vol] 114.2 fL 83.5-101 [facility] Macrocytes LM Ql (Bld)Ordere d By: Brook Huddleston on 11-11-2022 Macrocytes Ql (Bld) Slight [facility] Monocytes Auto (Bld) [#/Vol] Ordered By: Brook Hdudleston on 11-11-2022 Monocytes (Bld) [#/Vol] N/A [facility] Monocytes/100 WBC Auto (Bld) Ordered By: Brook Huddleston on 11-11-2022 Monocytes/100 WBC (Bld) N/A [facility] Monocytes/100 WBC Manual cnt (Bld)Ordered By: Brook Huddleston on 11-11-2022 Monocytes/100 WBC (Bld) 13 % High 2-11 [facility] Monocytes/100 WBC (Bld) Monocytes/100 le ukocytes in Blood by Manual count High 2-11 [facility] Neutrophils Auto (Bld) [#/Vo l]Ordered By: Brook Huddleston on 11-11-2022 Neutrophils (Bld) [#/Vol] N/A [facility] Neutrophils/100 WBC Auto (Bl d)Ordered By: Brook Huddleston on 11-11-2022 Neutrophils/100 WBC (Bld) N/A [facility] No Panel InformationOrdered By: Brook Huddleston on 11-11-2022 Pharmacy Creatinine Clearance (Chem 34.37 [facility] Nucleated erythrocytes [Pres ence] in Blood by Automated countOrdered By: Brook Huddleston on 11-11-2022 Nucleated RBC Auto Ql (Bld) N/A [facility] Ovalocyte detectionOrdered B y: Brook Huddleston on 11-11-2022 Ovalocytes LM Ql (Bld) Slight [facility] Platelet adequacy [Presence] in Blood by Light microscopyOrdered By: Brook Huddleston on 11-11-2022 Platelets LM Ql (Bld) Decreased Normal [facility] Platelet mean volume Auto (B ld) [Entitic vol]Ordered By: Brook Huddleston on 11-11-2022 Platelet mean volume (Bld) [Entitic vol] 8.7 fL 6.6-10.1 [facility] Platelet morphology finding [Identifier] in BloodOrdered By: Brook Huddleston on 11-11-2022 Platelet morphology finding Nom (Bld) Normal Normal [facility] Platelets Auto (Bld) [#/Vol] Ordered By: Brook Huddleston on 11-11-2022 Platelets (Bld) [#/Vol] 117 10*3/uL 150-450 [facility] Poikilocytosis [Presence] in Blood by Light microscopyOrdered By: Brook Huddleston on 11-11-2022 Poikilocytosis LM Ql (Bld) Slight [facility] Polychromasia [Presence] in Blood by Light microscopyOrdered By: Brook Huddleston on 11-11-2022 Polychromasia LM Ql (Bld) Moderate [facility] Potassium [Moles/volume] in Serum or PlasmaOrdered By: Brook Huddleston on 11-11-2022 Potassium [Moles/Vol] 4.9 mmol/L 3.5-5.1 [facility] Protein [Mass/volume] in Ser um or PlasmaOrdered By: Brook Huddleston on 11-11-2022 Protein [Mass/Vol] 6.7 g/dL 6.4-8.9 [facility] RBC Auto (Bld) [#/Vol]Ordere d By: Brook Huddleston on 11-11-2022 RBC (Bld) [#/Vol] 2.34 10*6/uL 3.90-5.60 [facility] RBC morphologyOrdered By: Black Huddleston on 11-11-2022 RBC morphology finding Nom (Bld) N/A [facility] Segmented neutrophils/100 WB C Manual cnt (Bld)Ordered By: Brook Huddleston on 11-11-2022 Segmented neutrophils/100 WBC (Bld) 67 % 50-70 [facility] Segmented neutrophils/100 WBC (Bld) Manual blood segmented neutrophils/100 leukocytes 50-70 [facility] Serum or plasma albumin/glob ulin mass ratioOrdered By: Brook Huddleston on 11-11-2022 Albumin/Globulin [Mass ratio] 1.7 {ratio} [facility] Serum or plasma anion gap de terminationOrdered By: Brook Huddleston on 11-11-2022 Anion gap [Moles/Vol] 11.8 mmol/L 6.0-15.0 [facility] Sodium [Moles/volume] in Ser um or PlasmaOrdered By: Brook Huddleston on 11-11-2022 Sodium [Moles/Vol] 136 mmol/L 136-145 [facility] Urea nitrogen [Mass/volume] in Serum or PlasmaOrdered By: Brook Huddleston on 11-11-2022 Urea nitrogen [Mass/Vol] 29 mg/dL 7-25 [facility] Variant lymphocytes/100 WBC Manual cnt (Bld)Ordered By: Brook Huddleston on 11-11-2022 Variant lymphocytes/100 WBC (Bld) 1 % 0-12 [facility] Variant lymphocytes/100 WBC (Bld) Variant lymphocytes/100 leukocytes in Blood by Manual count 0-12 [facility] WBC Auto (Bld) [#/Vol]Ordere d By: Brook Huddleston on 11-11-2022 WBC (Bld) [#/Vol] 6.0 10*3/uL 4.1-10.5 [facility] Urine culture routineOrdered By: Helen Heath on 11-10-2022 Bacteria identified Cx Nom (U) 2 Days [facility] Alanine aminotransferase [En zymatic activity/volume] in Serum or PlasmaOrdered By: Brook Huddleston on 10-30-2022 ALT [Catalytic activity/Vol] 16 U/L 7-52 [facility] Albumin [Mass/volume] in Ser um or Plasma by Bromocresol green (BCG) dye binding methoOrdered By: Brook Huddleston on 10-30-2022 Albumin BCG dye [Mass/Vol] 4.0 g/dL 3.5-5.7 [facility] Alkaline phosphatase [Enzyma tic activity/volume] in Serum or PlasmaOrdered By: Brook Huddleston on 10-30-2022 ALP [Catalytic activity/Vol] 102 U/L 34-104 [facility] Anisocytosis LM Ql (Bld)Orde red By: Brook Huddleston on 10-30-2022 Anisocytosis Ql (Bld) Slight [facility] Aspartate aminotransferase [ Enzymatic activity/volume] in Serum or PlasmaOrdered By: Brook Huddleston on 10-30-2022 AST [Catalytic activity/Vol] 16 U/L 13-39 [facility] Basophils Auto (Bld) [#/Vol] Ordered By: Brook Huddleston on 10-30-2022 Basophils (Bld) [#/Vol] 0.0 10*3/uL 0.0-0.2 [facility] Basophils/100 WBC Auto (Bld) Ordered By: Brook Huddleston on 10-30-2022 Basophils/100 WBC (Bld) 0.3 % . [facility] Bilirubin.total [Mass/volume ] in Serum or PlasmaOrdered By: Brook Huddleston on 10-30-2022 Bilirubin [Mass/Vol] 0.4 mg/dL 0.3-1.0 [facility] Calcium [Mass/volume] in Ser um or PlasmaOrdered By: Brook Huddleston on 10-30-2022 Calcium [Mass/Vol] 8.9 mg/dL 8.6-10.3 [facility] Carbon dioxide, total [Moles /volume] in Serum or PlasmaOrdered By: Brook Huddleston on 10-30-2022 CO2 [Moles/Vol] 23.2 mmol/L 21.0-31.0 [facility] Chloride [Moles/volume] in S valeria or PlasmaOrdered By: Brook Huddleston on 10-30-2022 Chloride [Moles/Vol] 107 mmol/L 98-107 [facility] Cholesterol [Mass/volume] in Serum or PlasmaOrdered By: Helen Heath on 10-30-2022 Cholesterol [Mass/Vol] 138 mg/dL 140-200 [facility] Comment on above: Chol less than 200 m g/dl low riskChol 201-239 mg/dl borderline riskChol 240 mg/dl and greater high risk Cholesterol in LDL Calc [Mas s/Vol]Ordered By: Helen Heath on 10-30-2022 Cholesterol in LDL [Mass/Vol] 66 mg/dL 0-100 [facility] Comment on above: LDL ATP III CLASSIFI CATIONLDL less than 100 mg/dL OptimalLDL 100-129 mg/dL Near or above optimalLDL 130-159 mg/dL Borderline highLDL 160-189 mg/dL HighLDL greater than 189 mg/dL Very high Cholesterol in VLDL Calc [Ma ss/Vol]Ordered By: Helen Heath on 10-30-2022 Cholesterol in VLDL [Mass/Vol] 25 mg/dL [facility] Creatinine [Mass/volume] in Serum or PlasmaOrdered By: Brook Huddleston on 10-30-2022 Creatinine [Mass/Vol] 1.80 mg/dL 0.70-1.30 [facility] Eosinophils Auto (Bld) [#/Vo l]Ordered By: Brook Huddleston on 10-30-2022 Eosinophils (Bld) [#/Vol] 0.3 10*3/uL 0.0-0.45 [facility] Eosinophils/100 WBC Auto (Bl d)Ordered By: Brook Huddleston on 10-30-2022 Eosinophils/100 WBC (Bld) 4.6 % . [facility] Erythrocyte distribution wid th Auto (RBC) [Ratio]Ordered By: Brook Huddleston on 10-30-2022 Erythrocyte distribution width (RBC) [Ratio] 16.3 % 12.0-14.8 [facility] Globulin Calc (S) [Mass/Vol] Ordered By: Brook Huddleston on 10-30-2022 Globulin (S) [Mass/Vol] 2.4 g/dL [facility] Glucose [Mass/volume] in Ser um or PlasmaOrdered By: Brook Huddleston on 10-30-2022 Glucose [Mass/Vol] 145 mg/dL 74-109 [facility] Comment on above: ADA recommended refe rence rangeRandom Glucose Reference Range is dependent on time and content of last meal. Glucose of more than 200 mg/dL in a nonstressed, ambulatory subject supports the diagnosis of Diabetes Mellitus. Glucose mean value [Mass/vol ume] in Blood Estimated from glycated hemoglobinOrdered By: Helen Heath on 10-30-2022 Average glucose Estimated from glycated hemoglobin (Bld) [Mass/Vol] 166 mg/dL [facility] Hematocrit Auto (Bld) [Volum e fraction]Ordered By: Brook Huddleston on 10-30-2022 Hematocrit (Bld) [Volume fraction] 26.9 % 38.8-50.0 [facility] Hemoglobin A1c percentageOrd ered By: Helen Heath on 10-30-2022 HbA1c (Bld) [Mass fraction] 7.4 % 4.3-5.6 [facility] Comment on above: Increased risk for d iabetes: 5.7 - 6.4diabetes: >6.4glycemic control for adults with diabetes: <7.0 Hemoglobin [Mass/volume] in BloodOrdered By: Brook Huddleston on 10-30-2022 Hemoglobin (Bld) [Mass/Vol] 9.3 g/dL 13.0-17.0 [facility] Laboratory - Chemistry and C hemistry - challengeOrdered By: Brook Huddleston on 10-30-2022 GFR/1.73 sq M.predicted MDRD (S/P/Bld) [Vol rate/Area] 38.289 mL/min/{1.73_m2} [facility] Leukocytes [#/volume] correc lizbet for nucleated erythrocytes in Blood by Automated counOrdered By: Brook Huddleston on 10-30-2022 WBC corrected for nucl RBC Auto (Bld) [#/Vol] 6.1 10*3/uL 4.1-10.5 [facility] Lymphocytes Auto (Bld) [#/Vo l]Ordered By: Brook Huddleston on 10-30-2022 Lymphocytes (Bld) [#/Vol] 1.1 10*3/uL 1.00-4.8 [facility] Lymphocytes/100 WBC Auto (Bl d)Ordered By: Brook Huddleston on 10-30-2022 Lymphocytes/100 WBC (Bld) 18.4 % . [facility] MCH Auto (RBC) [Entitic mass ]Ordered By: Brook Huddleston on 10-30-2022 MCH (RBC) [Entitic mass] 39.8 pg 27.5-35.2 [facility] MCHC Auto (RBC) [Mass/Vol]Or dered By: Brook Huddleston on 10-30-2022 MCHC (RBC) [Mass/Vol] 34.6 g/dL 32.5-35.6 [facility] MCV Auto (RBC) [Entitic vol] Ordered By: Brook Huddleston on 10-30-2022 MCV (RBC) [Entitic vol] 115.1 fL 83.5-101 F [facility] Macrocytes LM Ql (Bld)Ordere d By: Brook Huddleston on 10-30-2022 Macrocytes Ql (Bld) Slight [facility] Monocytes Auto (Bld) [#/Vol] Ordered By: Brook Huddleston on 10-30-2022 Monocytes (Bld) [#/Vol] 0.5 10*3/uL 0.0-0.8 [facility] Monocytes/100 WBC Auto (Bld) Ordered By: Brook Huddleston on 10-30-2022 Monocytes/100 WBC (Bld) 8.4 % . [facility] Neutrophils Auto (Bld) [#/Vo l]Ordered By: Brook Huddleston on 10-30-2022 Neutrophils (Bld) [#/Vol] 4.2 10*3/uL 1.8-7.7 [facility] Neutrophils/100 WBC Auto (Bl d)Ordered By: Brook Huddleston on 10-30-2022 Neutrophils/100 WBC (Bld) 68.3 % . [facility] No Panel InformationOrdered By: Brook Huddleston on 10-30-2022 Pharmacy Creatinine Clearance (Chem 39.14 [facility] Nucleated erythrocytes [Pres ence] in Blood by Automated countOrdered By: Brook Huddleston on 10-30-2022 Nucleated RBC Auto Ql (Bld) 0.1 /100{WBC} 0-0.5 [facility] Ovalocyte detectionOrdered B y: Brook Huddleston on 10-30-2022 Ovalocytes LM Ql (Bld) Slight [facility] Platelet adequacy [Presence] in Blood by Light microscopyOrdered By: Brook Huddleston on 10-30-2022 Platelets LM Ql (Bld) Decreased Normal [facility] Platelet mean volume Auto (B ld) [Entitic vol]Ordered By: Brook Huddleston on 10-30-2022 Platelet mean volume (Bld) [Entitic vol] 9.5 fL 6.6-10.1 [facility] Platelet morphology finding [Identifier] in BloodOrdered By: Brook Huddleston on 10-30-2022 Platelet morphology finding Nom (Bld) Normal Normal [facility] Platelets Auto (Bld) [#/Vol] Ordered By: Brook Huddleston on 10-30-2022 Platelets (Bld) [#/Vol] 125 10*3/uL 150-450 [facility] Polychromasia [Presence] in Blood by Light microscopyOrdered By: Brook Huddleston on 10-30-2022 Polychromasia LM Ql (Bld) Slight [facility] Potassium [Moles/volume] in Serum or PlasmaOrdered By: Brook Huddleston on 10-30-2022 Potassium [Moles/Vol] 4.6 mmol/L 3.5-5.1 [facility] Protein [Mass/volume] in Ser um or PlasmaOrdered By: Brook Huddleston on 10-30-2022 Protein [Mass/Vol] 6.4 g/dL 6.4-8.9 [facility] RBC Auto (Bld) [#/Vol]Ordere d By: Brook Huddleston on 10-30-2022 RBC (Bld) [#/Vol] 2.34 10*6/uL 3.90-5.60 [facility] RBC morphologyOrdered By: Black Huddleston on 10-30-2022 RBC morphology finding Nom (Bld) N/A [facility] Schistocytes [Presence] in B lood by Light microscopyOrdered By: Brook Huddleston on 10-30-2022 Schistocytes LM Ql (Bld) Slight [facility] Serum or plasma albumin/glob ulin mass ratioOrdered By: Brook Huddleston on 10-30-2022 Albumin/Globulin [Mass ratio] 1.7 {ratio} [facility] Serum or plasma anion gap de terminationOrdered By: Brook Huddleston on 10-30-2022 Anion gap [Moles/Vol] 11.4 mmol/L 6.0-15.0 [facility] Serum or plasma high density lipoprotein (HDL) cholesterol measurementOrdered By: Helen Heath on 10-30-2022 Cholesterol in HDL [Mass/Vol] 47 mg/dL 29-71 [facility] Comment on above: HDL CHOL ATP-III CLA SSIFICATION Cardiovascular RiskHDL > or equal to 60 mg/dL LOWHDL < 40 mg/dL HIGH Serum or plasma methylmalona te measurement (moles/volume)Ordered By: Brook Huddleston on 10-30-2022 Methylmalonate [Moles/Vol] 190 nmol/L 0-378 [facility] Comment on above: This test was develo ped and its performance characteristicsdetermined by [employer]. It has not been cleared orapproved by the Food and Drug Administration.Performed at: [facility] [employer] [id number] Director: Aliya Curtis MD, Phone: [phone] Serum or plasma total choles terol/high density lipoprotein (HDL) cholesterol mass ratOrdered By: Helen Heath on 10-30-2022 Cholesterol.total/Remedios sterol in HDL [Mass ratio] 2.9 {ratio} <5.0 [facility] Sodium [Moles/volume] in Ser um or PlasmaOrdered By: Brook Huddleston on 10-30-2022 Sodium [Moles/Vol] 137 mmol/L 136-145 [facility] Teardrop cell detectionOrder ed By: Brook Huddleston on 10-30-2022 Dacrocytes LM Ql (Bld) Slight [facility] Triglyceride [Mass/volume] i n Serum or PlasmaOrdered By: Helen Heath on 10-30-2022 Triglyceride [Mass/Vol] 126 mg/dL 0-149 [facility] Comment on above: TRIG ATP III CLASSIF ICATIONTRIG less than 150 mg/dL NormalTRIG 150-199 mg/dL Borderline highTRIG 200-500 mg/dL High TRIG greater than 500 mg/dL Very highStandard traceable to the Center for Disease Conrtrol and Prevention (CDC) test method. Urea nitrogen [Mass/volume] in Serum or PlasmaOrdered By: Brook Huddleston on 10-30-2022 Urea nitrogen [Mass/Vol] 22 mg/dL 7-25 [facility] Vitamin B12 ser/plasOrdered By: Brook Huddleston on 10-30-2022 Cobalamin (Vitamin B12) [Mass/Vol] 341 pg/mL 180-914 [facility] Cobalamin (Vitamin B12) [Mass/Vol] Vitamin B12 ser/plas 180-914 [facility] WBC Auto (Bld) [#/Vol]Ordere d By: Brook Huddleston on 10-30-2022 WBC (Bld) [#/Vol] 6.1 10*3/uL 4.1-10.5 [facility] Albumin [Mass/volume] in Ser um or PlasmaOrdered By: Brook Huddleston on 10-14-2022 Albumin [Mass/Vol] 3.7 g/dL 3.2-5.5 [facility] Alkaline phosphatase [Enzyma tic activity/volume] in Serum or PlasmaOrdered By: Brook Huddleston on 10-14-2022 ALP [Catalytic activity/Vol] 102 U/L 32-92 [facility] Anisocytosis LM Ql (Bld)Orde red By: Brook Huddleston on 10-14-2022 Anisocytosis Ql (Bld) Slight [facility] Aspartate aminotransferase [ Enzymatic activity/volume] in Serum or PlasmaOrdered By: Brook Huddleston on 10-14-2022 AST [Catalytic activity/Vol] 22 U/L 10-42 [facility] Basophils Auto (Bld) [#/Vol] Ordered By: Brook Huddleston on 10-14-2022 Basophils (Bld) [#/Vol] 0.0 10*3/uL 0.0-0.2 [facility] Basophils/100 WBC Auto (Bld) Ordered By: Brook Huddleston on 10-14-2022 Basophils/100 WBC (Bld) 0.4 % . [facility] Bilirubin.total [Mass/volume ] in Serum or PlasmaOrdered By: Brook Huddleston on 10-14-2022 Bilirubin [Mass/Vol] 0.4 mg/dL 0.3-1.2 [facility] Calcium [Mass/volume] in Ser um or PlasmaOrdered By: Brook Huddleston on 10-14-2022 Calcium [Mass/Vol] 9.1 mg/dL 8.2-10.2 [facility] Carbon dioxide, total [Moles /volume] in Serum or PlasmaOrdered By: Brook Huddleston on 10-14-2022 CO2 [Moles/Vol] 23.4 mmol/L 22.0-30.0 [facility] Chloride [Moles/volume] in S valeria or PlasmaOrdered By: Brook Huddleston on 10-14-2022 Chloride [Moles/Vol] 105 mmol/L 95-114 [facility] Creatinine and Glomerular fi ltration rate.predicted panel (S/P/Bld)Ordered By: Brook Huddleston on 10-14-2022 Creatinine [Mass/Vol] 1.54 mg/dL 0.64-1.27 [facility] Eosinophils Auto (Bld) [#/Vo l]Ordered By: Brook Huddleston on 10-14-2022 Eosinophils (Bld) [#/Vol] 0.2 10*3/uL 0.0-0.45 [facility] Eosinophils/100 WBC Auto (Bl d)Ordered By: Brook Huddleston on 10-14-2022 Eosinophils/100 WBC (Bld) 3.2 % . [facility] Erythrocyte distribution wid th Auto (RBC) [Ratio]Ordered By: Brook Huddleston on 10-14-2022 Erythrocyte distribution width (RBC) [Ratio] 17.1 % 12.0-14.8 [facility] Estimated glomerular filtrat ion rate (GFR) non- AmericanOrdered By: Brook Huddleston on 10-14-2022 GFR/1.73 sq M.predicted among non-blacks MDRD (S/P/Bld) [Vol rate/Area] 44 mL/Min [facility] GFR/1.73 sq M.predicted among non-blacks MDRD (S/P/Bld) [Vol rate/Area] Estimated glomerular filtration rate (GFR) non- [facility] Globulin Calc (S) [Mass/Vol] Ordered By: Brook Huddleston on 10-14-2022 Globulin (S) [Mass/Vol] 2.5 g/dL [facility] Glucose [Mass/volume] in Ser um or PlasmaOrdered By: Brook Huddleston on 10-14-2022 Glucose [Mass/Vol] 138 mg/dL 70-100 [facility] Comment on above: ADA recommended refe rence rangeRandom Glucose Reference Range is dependent on time and content of last meal. Glucose of more than 200 mg/dL in a nonstressed, ambulatory subject supports the diagnosis of Diabetes Mellitus. Hematocrit Auto (Bld) [Volum e fraction]Ordered By: Brook Huddleston on 10-14-2022 Hematocrit (Bld) [Volume fraction] 26.7 % 38.8-50.0 [facility] Hemoglobin [Mass/volume] in BloodOrdered By: Brook Huddleston on 10-14-2022 Hemoglobin (Bld) [Mass/Vol] 9.0 g/dL 13.0-17.0 [facility] Leukocytes [#/volume] correc lizbet for nucleated erythrocytes in Blood by Automated counOrdered By: Brook Huddleston on 10-14-2022 WBC corrected for nucl RBC Auto (Bld) [#/Vol] 7.1 10*3/uL 4.1-10.5 [facility] Lymphocytes Auto (Bld) [#/Vo l]Ordered By: Brook Huddleston on 10-14-2022 Lymphocytes (Bld) [#/Vol] 1.0 10*3/uL 1.00-4.8 [facility] Lymphocytes/100 WBC Auto (Bl d)Ordered By: Brook Huddleston on 10-14-2022 Lymphocytes/100 WBC (Bld) 14.3 % . [facility] MCH Auto (RBC) [Entitic mass ]Ordered By: Brook Huddleston on 10-14-2022 MCH (RBC) [Entitic mass] 38.7 pg 27.5-35.2 [facility] MCHC Auto (RBC) [Mass/Vol]Or dered By: Brook Huddleston on 10-14-2022 MCHC (RBC) [Mass/Vol] 33.7 g/dL 32.5-35.6 [facility] MCV Auto (RBC) [Entitic vol] Ordered By: Brook Huddleston on 10-14-2022 MCV (RBC) [Entitic vol] 114.9 fL 83.5-101 F [facility] Monocytes Auto (Bld) [#/Vol] Ordered By: Brook Huddleston on 10-14-2022 Monocytes (Bld) [#/Vol] 0.5 10*3/uL 0.0-0.8 [facility] Monocytes/100 WBC Auto (Bld) Ordered By: Brook Huddleston on 10-14-2022 Monocytes/100 WBC (Bld) 6.9 % . [facility] Neutrophils Auto (Bld) [#/Vo l]Ordered By: Brook Huddleston on 10-14-2022 Neutrophils (Bld) [#/Vol] 5.3 10*3/uL 1.8-7.7 [facility] Neutrophils/100 WBC Auto (Bl d)Ordered By: Brook Huddleston on 10-14-2022 Neutrophils/100 WBC (Bld) 75.2 % . [facility] No Panel InformationOrdered By: Brook Huddleston on 10-14-2022 Estimated GFR () 53 mL/Min [facility] Comment on above: GFR estimated refere nce range: According to KDOQI guidelines, <60 ml/min/1.73m2 is sufficient to diagnose a patient with chronic kidney disease. Pharmacy Creatinine Clearance (Chem 45.75 [facility] 53 mL/Min [facility] Nucleated erythrocytes [Pres ence] in Blood by Automated countOrdered By: Brook Huddleston on 10-14-2022 Nucleated RBC Auto Ql (Bld) 0.2 /100{WBC} 0-0.5 [facility] Ovalocyte detectionOrdered B y: Brook Huddleston on 10-14-2022 Ovalocytes LM Ql (Bld) [facility] Platelet adequacy [Presence] in Blood by Light microscopyOrdered By: Brook Huddleston on 10-14-2022 Platelets LM Ql (Bld) Decreased Normal [facility] Platelet mean volume Auto (B ld) [Entitic vol]Ordered By: Brook Huddleston on 10-14-2022 Platelet mean volume (Bld) [Entitic vol] 9.5 fL 6.6-10.1 [facility] Platelet morphology finding [Identifier] in BloodOrdered By: Brook Huddleston on 10-14-2022 Platelet morphology finding Nom (Bld) Normal Normal [facility] Platelets Auto (Bld) [#/Vol] Ordered By: Brook Huddleston on 10-14-2022 Platelets (Bld) [#/Vol] 128 10*3/uL 150-450 [facility] Poikilocytosis [Presence] in Blood by Light microscopyOrdered By: Brook Huddleston on 10-14-2022 Poikilocytosis LM Ql (Bld) Slight [facility] Polychromasia [Presence] in Blood by Light microscopyOrdered By: Brook Huddleston on 10-14-2022 Polychromasia LM Ql (Bld) [facility] Potassium [Moles/volume] in Serum or PlasmaOrdered By: Brook Huddleston on 10-14-2022 Potassium [Moles/Vol] 4.7 mmol/L 3.5-5.1 [facility] Protein [Mass/volume] in Ser um or PlasmaOrdered By: Brook Huddleston on 10-14-2022 Protein [Mass/Vol] 6.2 g/dL 6.1-7.9 [facility] RBC Auto (Bld) [#/Vol]Ordere d By: Brook Huddleston on 10-14-2022 RBC (Bld) [#/Vol] 2.32 10*6/uL 3.90-5.60 [facility] RBC morphologyOrdered By: Black Huddleston on 10-14-2022 RBC morphology finding Nom (Bld) N/A [facility] Schistocytes [Presence] in B lood by Light microscopyOrdered By: Brook Huddleston on 10-14-2022 Schistocytes LM Ql (Bld) Slight [facility] Serum or plasma alanine etienne otransferase measurement without P-5'-P (enzymatic activiOrdered By: Brook Huddleston on 10-14-2022 ALT No additional P-5'-P [Catalytic activity/Vol] 20 U/L 10-60 [facility] Serum or plasma albumin/glob ulin mass ratioOrdered By: Brook Huddleston on 10-14-2022 Albumin/Globulin [Mass ratio] 1.5 {ratio} [facility] Serum or plasma anion gap de terminationOrdered By: Brook Huddleston on 10-14-2022 Anion gap [Moles/Vol] 11.3 mmol/L 6.0-15.0 [facility] Sodium [Moles/volume] in Ser um or PlasmaOrdered By: Brook Huddleston on 10-14-2022 Sodium [Moles/Vol] 135 mmol/L 136-146 [facility] Teardrop cell detectionOrder ed By: Brook Huddleston on 10-14-2022 Dacrocytes LM Ql (Bld) Slight [facility] Urea nitrogen [Mass/volume] in Serum or PlasmaOrdered By: Brook Huddleston on 10-14-2022 Urea nitrogen [Mass/Vol] 25 mg/dL 9-23 [facility] WBC Auto (Bld) [#/Vol]Ordere d By: Brook Huddleston on 10-14-2022 WBC (Bld) [#/Vol] 7.1 10*3/uL 4.1-10.5 [facility] Albumin [Mass/volume] in Ser um or PlasmaOrdered By: Brook Huddleston on 10-01-2022 Albumin [Mass/Vol] 3.6 g/dL 3.2-5.5 [facility] Anisocytosis LM Ql (Bld)Orde red By: Brook Huddleston on 10-01-2022 Anisocytosis Ql (Bld) Slight [facility] Basophils Auto (Bld) [#/Vol] Ordered By: Brook Huddleston on 10-01-2022 Basophils (Bld) [#/Vol] 0.0 10*3/uL 0.0-0.2 [facility] Basophils/100 WBC Auto (Bld) Ordered By: Brook Huddleston on 10-01-2022 Basophils/100 WBC (Bld) 0.1 % . [facility] Creatinine and Glomerular fi ltration rate.predicted panel (S/P/Bld)Ordered By: Brook Huddleston on 10-01-2022 Creatinine [Mass/Vol] 2.02 mg/dL 0.64-1.27 [facility] Eosinophils Auto (Bld) [#/Vo l]Ordered By: Brook Huddleston on 10-01-2022 Eosinophils (Bld) [#/Vol] 0.2 10*3/uL 0.0-0.45 [facility] Eosinophils/100 WBC Auto (Bl d)Ordered By: Brook Huddleston on 10-01-2022 Eosinophils/100 WBC (Bld) 2.9 % . [facility] Erythrocyte distribution wid th Auto (RBC) [Ratio]Ordered By: Brook Huddleston on 10-01-2022 Erythrocyte distribution width (RBC) [Ratio] 17.3 % 12.0-14.8 [facility] Estimated glomerular filtrat ion rate (GFR) non- AmericanOrdered By: Brook Huddleston on 10-01-2022 GFR/1.73 sq M.predicted among non-blacks MDRD (S/P/Bld) [Vol rate/Area] 32 mL/Min [facility] Globulin Calc (S) [Mass/Vol] Ordered By: Brook Huddleston on 10-01-2022 Globulin (S) [Mass/Vol] 2.4 g/dL [facility] Hematocrit Auto (Bld) [Volum e fraction]Ordered By: Brook Huddleston on 10-01-2022 Hematocrit (Bld) [Volume fraction] 25.9 % 38.8-50.0 [facility] Hemoglobin [Mass/volume] in BloodOrdered By: Brook Huddleston on 10-01-2022 Hemoglobin (Bld) [Mass/Vol] 8.6 g/dL 13.0-17.0 [facility] Leukocytes [#/volume] correc lizbet for nucleated erythrocytes in Blood by Automated counOrdered By: Brook Huddleston on 10-01-2022 WBC corrected for nucl RBC Auto (Bld) [#/Vol] 6.4 10*3/uL 4.1-10.5 [facility] Lymphocytes Auto (Bld) [#/Vo l]Ordered By: Brook Huddleston on 10-01-2022 Lymphocytes (Bld) [#/Vol] 1.0 10*3/uL 1.00-4.8 [facility] Lymphocytes/100 WBC Auto (Bl d)Ordered By: Brook Huddleston on 10-01-2022 Lymphocytes/100 WBC (Bld) 16.3 % . [facility] MCH Auto (RBC) [Entitic mass ]Ordered By: Brook Huddleston on 10-01-2022 MCH (RBC) [Entitic mass] 38.9 pg 27.5-35.2 [facility] MCHC Auto (RBC) [Mass/Vol]Or dered By: Brook Huddleston on 10-01-2022 MCHC (RBC) [Mass/Vol] 33.4 g/dL 32.5-35.6 [facility] MCV Auto (RBC) [Entitic vol] Ordered By: Brook Huddleston on 10-01-2022 MCV (RBC) [Entitic vol] 116.5 fL 83.5-101 F [facility] Monocytes Auto (Bld) [#/Vol] Ordered By: Brook Huddleston on 10-01-2022 Monocytes (Bld) [#/Vol] 0.4 10*3/uL 0.0-0.8 [facility] Monocytes/100 WBC Auto (Bld) Ordered By: Brook Huddleston on 10-01-2022 Monocytes/100 WBC (Bld) 6.8 % . [facility] Neutrophils Auto (Bld) [#/Vo l]Ordered By: Brook Huddleston on 10-01-2022 Neutrophils (Bld) [#/Vol] 4.7 10*3/uL 1.8-7.7 [facility] Neutrophils/100 WBC Auto (Bl d)Ordered By: Brook Huddleston on 10-01-2022 Neutrophils/100 WBC (Bld) 73.9 % . [facility] No Panel InformationOrdered By: Brook Huddleston on 10-01-2022 Estimated GFR () 39 mL/Min [facility] Comment on above: GFR estimated refere nce range: According to KDOQI guidelines, <60 ml/min/1.73m2 is sufficient to diagnose a patient with chronic kidney disease. Pharmacy Creatinine Clearance (Chem 34.88 [facility] Nucleated erythrocytes [Pres ence] in Blood by Automated countOrdered By: Brook Huddleston on 10-01-2022 Nucleated RBC Auto Ql (Bld) 0.1 /100{WBC} 0-0.5 [facility] Platelet adequacy [Presence] in Blood by Light microscopyOrdered By: Brook Huddleston on 10-01-2022 Platelets LM Ql (Bld) Decreased Normal [facility] Platelet mean volume Auto (B ld) [Entitic vol]Ordered By: Brook Huddleston on 10-01-2022 Platelet mean volume (Bld) [Entitic vol] 9.1 fL 6.6-10.1 [facility] Platelet morphology finding [Identifier] in BloodOrdered By: Brook Huddleston on 10-01-2022 Platelet morphology finding Nom (Bld) N/A [facility] Platelets Auto (Bld) [#/Vol] Ordered By: Brook Huddleston on 10-01-2022 Platelets (Bld) [#/Vol] 120 10*3/uL 150-450 [facility] Platelets Large [Presence] i n Blood by Light microscopyOrdered By: Brook Huddleston on 10-01-2022 Platelets Large LM Ql (Bld) Slight [facility] Platelets Large LM Ql (Bld) Platelets Large [Presence] in Blood by Light microscopy [facility] Poikilocytosis [Presence] in Blood by Light microscopyOrdered By: Brook Huddleston on 10-01-2022 Poikilocytosis LM Ql (Bld) Slight [facility] Polychromasia [Presence] in Blood by Light microscopyOrdered By: Brook Huddleston on 10-01-2022 Polychromasia LM Ql (Bld) Moderate [facility] Protein [Mass/volume] in Ser um or PlasmaOrdered By: Brook Huddleston on 10-01-2022 Protein [Mass/Vol] 6.0 g/dL 6.1-7.9 [facility] RBC Auto (Bld) [#/Vol]Ordere d By: Brook Huddleston on 10-01-2022 RBC (Bld) [#/Vol] 2.22 10*6/uL 3.90-5.60 [facility] RBC morphologyOrdered By: Black Huddleston on 10-01-2022 RBC morphology finding Nom (Bld) N/A [facility] Schistocytes [Presence] in B lood by Light microscopyOrdered By: Brook Huddleston on 10-01-2022 Schistocytes LM Ql (Bld) Slight [facility] Serum or plasma alanine etienne otransferase measurement without P-5'-P (enzymatic activiOrdered By: Brook Huddleston on 10-01-2022 ALT No additional P-5'-P [Catalytic activity/Vol] 19 U/L 10-60 [facility] Serum or plasma albumin/glob ulin mass ratioOrdered By: Brook Huddleston on 10-01-2022 Albumin/Globulin [Mass ratio] 1.5 {ratio} [facility] Serum or plasma alkaline tammy sphatase measurement (enzymatic activity/volume)Ordered By: Brook Huddleston on 10-01-2022 ALP [Catalytic activity/Vol] 111 U/L 32-92 [facility] Serum or plasma anion gap de terminationOrdered By: Brook Huddleston on 10-01-2022 Anion gap [Moles/Vol] 10.6 mmol/L 6.0-15.0 [facility] Serum or plasma aspartate am inotransferase measurement (enzymatic activity/volume)Ordered By: Brook Huddleston on 10-01-2022 AST [Catalytic activity/Vol] 18 U/L 10-42 [facility] Serum or plasma calcium reese urement (mass/volume)Ordered By: Brook Huddleston on 10-01-2022 Calcium [Mass/Vol] 8.9 mg/dL 8.2-10.2 [facility] Serum or plasma chloride gurdeep surement (moles/volume)Ordered By: Brook Huddleston on 10-01-2022 Chloride [Moles/Vol] 106 mmol/L 95-114 [facility] Serum or plasma glucose reese urement (mass/volume)Ordered By: Brook Huddleston on 10-01-2022 Glucose [Mass/Vol] 251 mg/dL 70-100 [facility] Comment on above: ADA recommended refe rence rangeRandom Glucose Reference Range is dependent on time and content of last meal. Glucose of more than 200 mg/dL in a nonstressed, ambulatory subject supports the diagnosis of Diabetes Mellitus. Serum or plasma potassium me asurement (moles/volume)Ordered By: Brook Huddleston on 10-01-2022 Potassium [Moles/Vol] 4.7 mmol/L 3.5-5.1 [facility] Serum or plasma sodium measu rement (moles/volume)Ordered By: Brook Huddleston on 10-01-2022 Sodium [Moles/Vol] 135 mmol/L 136-146 [facility] Serum or plasma total biliru bin measurement (mass/volume)Ordered By: Brook Huddleston on 10-01-2022 Bilirubin [Mass/Vol] 0.2 mg/dL 0.3-1.2 [facility] Serum or plasma total carbon dioxide measurement (moles/volume)Ordered By: Brook Huddleston on 10-01-2022 CO2 [Moles/Vol] 23.1 mmol/L 22.0-30.0 [facility] Serum or plasma urea nitroge n measurement (mass/volume)Ordered By: Brook Huddleston on 10-01-2022 Urea nitrogen [Mass/Vol] 21 mg/dL 9- [facility] Teardrop cell detectionOrder ed By: Brook Huddleston on 10-01-2022 Dacrocytes LM Ql (Bld) Slight [facility] WBC Auto (Bld) [#/Vol]Ordere d By: Brook Huddleston on 10-01-2022 WBC (Bld) [#/Vol] 6.4 10*3/uL 4.1-10.5 [facility] Automated epithelial cells c ount in urine sediment (number/area)Ordered By: Price Crain on 09-23-2022 Epithelial cells Auto (Urine sed) [#/Area] 3-4 [HPF] 0-2 [facility] Automated erythrocytes count in urine sediment (number/area)Ordered By: Price Crain on 09-23-2022 RBC Auto (Urine sed) [#/Area] 5-9 [HPF] 0-4 [facility] Automated leukocytes count i n urine sediment (number/area)Ordered By: Price Crain on 09-23-2022 WBC Auto (Urine sed) [#/Area] Innumerable [HPF] 0-4 [facility] Bilirubin Auto test strip Ql (U)Ordered By: Price Crain on 09-23-2022 Bilirubin Ql (U) Negative Negative [facility] Body fluid albumin measureme nt (mass/volume)Ordered By: Price Crain on 09-23-2022 Albumin (Body fld) [Mass/Vol] 3.5 g/dL 3.2-5.5 [facility] Creatinine [Mass/volume] in UrineOrdered By: Price Crain on 09-23-2022 Creatinine (U) [Mass/Vol] 52.1 mg/dL [facility] Comment on above: No reference range e stablished Creatinine and Glomerular fi ltration rate.predicted panel (S/P/Bld)Ordered By: Price Crain on 09-23-2022 Creatinine [Mass/Vol] 1.90 mg/dL 0.64-1.27 [facility] Estimated glomerular filtrat ion rate (GFR) non- AmericanOrdered By: Price Crain on 09-23-2022 GFR/1.73 sq M.predicted among non-blacks MDRD (S/P/Bld) [Vol rate/Area] 35 mL/Min [facility] Globulin Calc (S) [Mass/Vol] Ordered By: Price Crain on 09-23-2022 Globulin (S) [Mass/Vol] 2.7 g/dL F [facility] Ketones Auto test strip (U) [Mass/Vol]Ordered By: Price Crain on 09-23-2022 Ketones (U) [Mass/Vol] Negative Negative [facility] - Chemistry and C hemistry - challengeOrdered By: Price Crain on 09-23-2022 Magnesium [Mass/Vol] 2.0 mg/dL 1.6-2.6 [facility] No Panel InformationOrdered By: Price Crain on 09-23-2022 25-Hydroxy Vitamin D Total 43.4 ng/mL 30-100 [facility] Comment on above: VITAMIN D STATUS 25( [place])VITAMIN D RANGE (ng/mL) Deficient <20 Insufficient 20 to <30Sufficient 30 to 100Reference: Dieudonne ABEL,Brendon GUERRA, Estrella CARTER, et al. Evaluation,treatment, and prevention of vitamin D deficiency; an Endocrine Society clinical practice guideline. JCEM. 2010; 96(7):1911-30. Estimated GFR () 42 mL/Min [facility] Comment on above: GFR estimated refere nce range: According to KDOQI guidelines, <60 ml/min/1.73m2 is sufficient to diagnose a patient with chronic kidney disease. Pharmacy Creatinine Clearance (Chem N/A [facility] Protein Auto test strip (U) [Mass/Vol]Ordered By: Price Crani on 09-23-2022 Protein (U) [Mass/Vol] 30 mg/dL Negative [facility] Protein [Mass/volume] in Ser um or PlasmaOrdered By: Price Crain on 09-23-2022 Protein [Mass/Vol] 6.2 g/dL 6.1-7.9 [facility] Protein [Mass/volume] in Uri neOrdered By: Price Crain on 09-23-2022 Protein (U) [Mass/Vol] 67 mg/dL 0-9 [facility] Serum or plasma alanine etienne otransferase measurement without P-5'-P (enzymatic activiOrdered By: Price Crain on 09-23-2022 ALT No additional P-5'-P [Catalytic activity/Vol] 19 U/L 10-60 [facility] Serum or plasma albumin/glob ulin mass ratioOrdered By: Price Crain on 09-23-2022 Albumin/Globulin [Mass ratio] 1.3 {ratio} [facility] Serum or plasma alkaline tammy sphatase measurement (enzymatic activity/volume)Ordered By: Price Crain on 09-23-2022 ALP [Catalytic activity/Vol] 105 U/L 32-92 [facility] Serum or plasma anion gap de terminationOrdered By: Price Crain on 09-23-2022 Anion gap [Moles/Vol] 12.4 mmol/L 6.0-15.0 [facility] Serum or plasma aspartate am inotransferase measurement (enzymatic activity/volume)Ordered By: Price Crain on 09-23-2022 AST [Catalytic activity/Vol] 19 U/L 10-42 [facility] Serum or plasma calcium reese urement (mass/volume)Ordered By: Price Crain on 09-23-2022 Calcium [Mass/Vol] 9.3 mg/dL 8.2-10.2 [facility] Serum or plasma chloride gurdeep surement (moles/volume)Ordered By: Price Crain on 09-23-2022 Chloride [Moles/Vol] 103 mmol/L 95-114 [facility] Serum or plasma glucose reese urement (mass/volume)Ordered By: Price Crain on 09-23-2022 Glucose [Mass/Vol] 245 mg/dL 70-100 [facility] Comment on above: ADA recommended refe rence rangeRandom Glucose Reference Range is dependent on time and content of last meal. Glucose of more than 200 mg/dL in a nonstressed, ambulatory subject supports the diagnosis of Diabetes Mellitus. Serum or plasma intact parat hyroid hormone measurement (mass/volume)Ordered By: Price Crain on 09-23-2022 Parathyrin.intact [Mass/Vol] 69.0 pg/mL 12-88 [facility] Serum or plasma potassium me asurement (moles/volume)Ordered By: Price Crain on 09-23-2022 Potassium [Moles/Vol] 4.8 mmol/L 3.5-5.1 [facility] Serum or plasma sodium measu rement (moles/volume)Ordered By: Price Crain on 09-23-2022 Sodium [Moles/Vol] 133 mmol/L 136-146 [facility] Serum or plasma total biliru bin measurement (mass/volume)Ordered By: Price Crain on 09-23-2022 Bilirubin [Mass/Vol] 0.4 mg/dL 0.3-1.2 [facility] Serum or plasma total carbon dioxide measurement (moles/volume)Ordered By: Price Crain on 09-23-2022 CO2 [Moles/Vol] 22.4 mmol/L 22.0-30.0 [facility] Serum or plasma urea nitroge n measurement (mass/volume)Ordered By: Price Crain on 09-23-2022 Urea nitrogen [Mass/Vol] 23 mg/dL 9-23 [facility] Serum or plasma uric acid me asurement (mass/volume)Ordered By: Price Crain on 09-23-2022 Urate [Mass/Vol] 4.5 mg/dL 2.6-7.2 [facility] Urine appearanceOrdered By: Price Crain on 09-23-2022 Appearance (U) Cloudy Clear [facility] Urine bacteria detection by automated methodOrdered By: Price Crain on 09-23-2022 Bacteria Auto Ql (U) 1+ None Seen [facility] Urine colorOrdered By: Price Crain on 09-23-2022 Color (U) Yellow Yellow [facility] Urine culture routineOrdered By: Price Crain on 09-23-2022 Bacteria identified Cx Nom (U) No Growth 2 Days [facility] Bacteria identified Cx Nom (U) No Growth 2 Days [facility] Urine glucose measurement by automated test strip (mass/volume)Ordered By: Price Crain on 09-23-2022 Glucose Auto test strip (U) [Mass/Vol] 500 mg/dL Normal [facility] Urine hemoglobin detection b y automated test stripOrdered By: Price Crain on 09-23-2022 Hemoglobin Auto test strip Ql (U) 3+ Negative [facility] Urine leukocyte esterase det ection by automated test stripOrdered By: Price Crain on 09-23-2022 Leukocyte esterase Auto test strip Ql (U) 4+ Negative [facility] Urine nitrite detection by a utomated test stripOrdered By: Price Crain on 09-23-2022 Nitrite Auto test strip Ql (U) Negative Negative [facility] Urine protein/creatinine rat ioOrdered By: rPice Crain on 09-23-2022 Protein/Creatinine (U) [Ratio] 1286 mg/g{Cre} 0-200 [facility] Urobilinogen Auto test strip (U) [Mass/Vol]Ordered By: Price Crain on 09-23-2022 Urobilinogen (U) [Mass/Vol] Normal mg/dL Normal [facility] pH Auto test strip (U)Ordere d By: Price Crain on 09-23-2022 pH (U) 1.015 [pH] 1.001-1.03 0 [facility] pH (U) 6.5 [pH] 5.0-9.[address] [facility] [address] biopsyOrdered By: Brook Gomez se on 09-03-2022 Transferrin [Mass/Vol] 173 mg/dL 180-[address] [facility] Ferritin [Mass/volume] in Se rum or PlasmaOrdered By: Brook Huddleston on 09-03-2022 Ferritin [Mass/Vol] 574.6 ng/mL 23.9-336.2 [facility] Iron [Mass/volume] in Serum or PlasmaOrdered By: Brook Huddleston on 09-03-2022 Iron [Mass/Vol] 90 ug/dL 40-160 [facility] Iron binding capacity [Mass/ volume] in Serum or PlasmaOrdered By: Brook Huddleston on 09-03-2022 Iron binding capacity [Mass/Vol] 242 ug/dL 255-450 [facility] Iron saturation [Mass Fracti on] in Serum or PlasmaOrdered By: Brook Huddleston on 09-03-2022 Iron saturation [Mass fraction] 37.2 % 20-50 [facility] Serum or plasma erythropoiet in (EPO) measurement (units/volume)Ordered By: Brook Huddleston on 09-03-2022 Erythropoietin (EPO) Qn 409.2 mIU/mL High 2.6-18.5 [facility] Comment on above: [employer] 800 Immunoassay SystemValues obtained with different assay methods or kits cannotbe used interchangeably. Results cannot be interpreted asabsolute evidence of the presence or absence of malignantdisease.Performed at: [employer] [id number] Director: Melchor Agrawal PhD, Phone: [phone] Erythropoietin (EPO) Qn Serum or plasma erythropoietin (EPO) measurement (units/volume) High 2.6-18.5 [facility] Comment on above: [employer] 800 Immunoassay SystemValues obtained with different assay methods or kits cannotbe used interchangeably. Results cannot be interpreted asabsolute evidence of the presence or absence of malignantdisease.Performed at: [employer] [id number] Director: Melchor Agrawal PhD, Phone: [phone] Serum or plasma homocysteine measurement (moles/volume)Ordered By: Brook Huddleston on 09-03-2022 Homocysteine [Moles/Vol] 16.0 umol/L 0.0-19.2 [facility] Comment on above: Performed at: [facility] [address] [id number] Director: Melchor Agrawal PhD, Phone: [phone] Serum or plasma methylmalona te measurement (moles/volume)Ordered By: Brook Huddleston on 09-03-2022 Methylmalonate [Moles/Vol] 231 nmol/L 0-378 [facility] Comment on above: This test was develo ped and its performance characteristicsdetermined by [employer]. It has not been cleared orapproved by the Food and Drug Administration.Performed at: [facility] [id number] Director: Aliya Curtis MD, Phone: [phone] POINT OF CARE GLUCOSEon 08-17 Glucose [Mass/Vol] 250 mg/dL Critically high -106 [facility] Comment on above: Performed By: #### P OCGLUC #### [facility] [address] [place] [address] Dr. Lydia Merritt POINT OF CARE GLUCOSEon 08-17 Glucose [Mass/Vol] 283 mg/dL Critically high [address] [place] [address] Comment on above: Performed By: #### P TT, PT #### [facility] [address] [address] [address] Lydia Merritt Glucose [Mass/Vol] 207 mg/dL Critically high [address] [place] [address] Comment on above: Performed By: #### P TT, PT #### [facility] [address] [address] [address] Lydia Merritt PROF CHEM 8 (BAS METB)on Anion gap [Moles/Vol] 15.8 mmol/L Normal [facility] Comment on above: Performed By: #### P TT, PT #### [facility] [address] [address] [address] Lydia Merritt Calcium [Mass/Vol] 8.7 mg/dL Normal 8.5-10.1 [facility] Comment on above: Performed By: #### P TT, PT #### [facility] [address] [address] [address] Lydia Merritt Chloride [Moles/Vol] 107 mmol/L Normal 98-107 [facility] Comment on above: Performed By: #### P TT, PT #### [facility] [address] [address] [address] Lydia Merritt CO2 [Moles/Vol] 22.4 mmol/L Normal 21.0-32.0 [facility] Comment on above: Performed By: #### P TT, PT #### [facility] [address] [address] [address] Lydia Merritt Creatinine [Mass/Vol] 1.82 mg/dL Critically high 0.70-1.30 [facility] Comment on above: Performed By: #### P TT, PT #### [facility] [address] [place] [address] Dr. Lydia Merritt EGFR-AF CAMBODIAN 44 mL/min/1.73m2 Critically low >=60 [facility] Comment on above: Performed By: #### P TT, PT #### [facility] [address] [place] [address] Dr. Lydia Merritt EGFR-NON AF CAMBODIAN 36 mL/min/1.73m2 Critically low >=60 [facility] Comment on above: Performed By: #### P TT, PT #### [facility] [address] [address] [address] Lydia Merritt Glucose [Mass/Vol] 128 mg/dL Critically high 74-106 [facility] Comment on above: Performed By: #### P TT, PT #### [facility] [address] [address] [address] Lydia Merritt Potassium [Moles/Vol] 5.2 mmol/L Critically high 3.5-5.1 [facility] Comment on above: Performed By: #### P TT, PT #### [facility] [address] [address] [address] Lydia Merritt Sodium [Moles/Vol] 140 mmol/L Normal 136-145 [facility] Comment on above: Performed By: #### P TT, PT #### [facility] [address] [address] [address] Lydia Merritt Urea nitrogen [Mass/Vol] 25.0 mg/dL Critically high 7.0-18.0 [facility] Comment on above: Performed By: #### P TT, PT #### [facility] [id number] Lydia Merritt Urea nitrogen/Creatinine [Mass ratio] 13.7 mg/mg Normal [facility] Comment on above: Performed By: #### P TT, PT #### [facility] [address] [address] [address] Lydia Merritt Covid-19 PCR (CVDTB)on SARS-CoV-2 (COVID-19) RNA ERIN+probe Ql (Unsp spec) Not detected Normal NOT DETECTED [facility] Comment on above: Result Comment: This test is not yet approved or cleared by the [place] FDA. When there are no FDA-approved or cleared tests available, and other criteria are met, FDA can make tests available under an emergency access mechanism called an Emergency Use Authorization (EUA). The EUA for this test is supported by the [place] of Health and Human Service's (HHS's) declaration [...] consistent with SARS-CoV-2. Performed By: #### C VDTBH #### [facility] [address] [address] [address] Lydia Merritt Albumin [Mass/volume] in Ser um or PlasmaOrdered By: Rosie Chew on 08-20-2022 Albumin [Mass/Vol] 3.4 g/dL 3.2-5.5 [facility] Albumin [Mass/Vol] 3.3 g/dL 2.9-4.4 [facility] Albumin/Protein.total in 24 hour Urine by ElectrophoresisOrdered By: Rosie Chew on 08-20-2022 Albumin Elph (24H U) [Mass fraction] 47.1 % . [facility] Anisocytosis LM Ql (Bld)Orde red By: Rosie Chew on 08-20-2022 Anisocytosis Ql (Bld) Marked [facility] Basophils Auto (Bld) [#/Vol] Ordered By: Rosie Chew on 08-20-2022 Basophils (Bld) [#/Vol] 0.0 10*3/uL 0.0-0.2 [facility] Basophils/100 WBC Auto (Bld) Ordered By: Rosie Chew on 08-20-2022 Basophils/100 WBC (Bld) 0.3 % . [facility] Creatinine and Glomerular fi ltration rate.predicted panel (S/P/Bld)Ordered By: Rosie Chew on 08-20-2022 Creatinine [Mass/Vol] 2.30 mg/dL 0.64-1.27 [facility] Eosinophils Auto (Bld) [#/Vo l]Ordered By: Rosie Chew on 08-20-2022 Eosinophils (Bld) [#/Vol] 0.2 10*3/uL 0.0-0.45 [facility] Eosinophils/100 WBC Auto (Bl d)Ordered By: Rosie Chew on 08-20-2022 Eosinophils/100 WBC (Bld) 3.1 % . [facility] Erythrocyte distribution wid th Auto (RBC) [Ratio]Ordered By: Rosie Chwe on 08-20-2022 Erythrocyte distribution width (RBC) [Ratio] 20.1 % 12.0-14.8 [facility] Estimated glomerular filtrat ion rate (GFR) non- AmericanOrdered By: Rosie Chew on 08-20-2022 GFR/1.73 sq M.predicted among non-blacks MDRD (S/P/Bld) [Vol rate/Area] 28 mL/Min [facility] Gamma globulin/Protein.total in 24 hour Urine by ElectrophoresisOrdered By: Rosie Chew on 08-20-2022 Gamma globulin Elph (24H U) [Mass fraction] 19.8 % . [facility] Globulin Calc (S) [Mass/Vol] Ordered By: Rosie Chew on 08-20-2022 Globulin (S) [Mass/Vol] 2.6 g/dL [facility] Hematocrit Auto (Bld) [Volum e fraction]Ordered By: Rosie Chew on 08-20-2022 Hematocrit (Bld) [Volume fraction] 23.9 % 38.8-50.0 [facility] Hemoglobin [Mass/volume] in BloodOrdered By: Rosie Chew on 08-20-2022 Hemoglobin (Bld) [Mass/Vol] 8.1 g/dL 13.0-17.0 [facility] IgA [Mass/volume] in Serum o r PlasmaOrdered By: Rosie Chew on 08-20-2022 IgA [Mass/Vol] 190 mg/dL 61-437 [facility] IgG [Mass/volume] in Serum o r PlasmaOrdered By: Rosie Chew on 08-20-2022 IgG [Mass/Vol] 996 mg/dL 603-1613 [facility] IgM [Mass/volume] in Serum o r PlasmaOrdered By: Rosie Chew on 08-20-2022 IgM [Mass/Vol] 37 mg/dL 15-143 [facility] Comment on above: Performed at: - [address] [id number] Director: Melchor Agrawal PhD, Phone: [phone] Immunofixation for UrineOrde red By: Rosie Chew on 08-20-2022 Interpretation Immunofixation (U) [Interp] Comment: . [facility] Comment on above: Presence of monoclon al protein is unclear at this time. Suggestrepeat in 3 to 6 months if clinically indicated.Performed at: [employer] [facility] [id number] [place], [place] [id number] Director: Melchor Agrawal PhD, Phone: [phone] Immunoglobulin light chains. kappa.free [Mass/volume] in SerumOrdered By: Rosie Chew on 08-20-2022 Immunoglobulin light chains.kappa.free (S) [Mass/Vol] 42.0 mg/L 3.3-19.4 [facility] Immunoglobulin light chains. kappa.free/Immunoglobulin light chains.lambda.free [MassOrdered By: Rosie Chew on 08-20-2022 Immunoglobulin light chains.kappa.free/Immun oglobulin light chains.lambda.free (S) [Mass ratio] 1.74 0.26-1.65 [facility] Comment on above: Performed at: [facility] [address] [id number] Director: Melchor Agrawal PhD, Phone: [phone] Immunoglobulin light chains. lambda.free [Mass/volume] in Serum or PlasmaOrdered By: Rosie Chew on 08-20-2022 Immunoglobulin light chains.lambda.free [Mass/Vol] 24.1 mg/L 5.7-26.3 [facility] Lactate dehydrogenase measur ement (enzymatic activity/volume)Ordered By: Rosie Chew on 08-20-2022 LDH (Unsp spec) [Catalytic activity/Vol] 123 U/L 45-190 [facility] Leukocytes [#/volume] correc lizbet for nucleated erythrocytes in Blood by Automated counOrdered By: Rosie Chew on 08-20-2022 WBC corrected for nucl RBC Auto (Bld) [#/Vol] 5.9 10*3/uL 4.1-10.5 [facility] Lymphocytes Auto (Bld) [#/Vo l]Ordered By: Rosie Chew on 08-20-2022 Lymphocytes (Bld) [#/Vol] 1.2 10*3/uL 1.00-4.8 [facility] Lymphocytes/100 WBC Auto (Bl d)Ordered By: Rosie Chew on 08-20-2022 Lymphocytes/100 WBC (Bld) 20.5 % . [facility] MCH Auto (RBC) [Entitic mass ]Ordered By: Rosie Chew on 08-20-2022 MCH (RBC) [Entitic mass] 38.3 pg 27.5-35.2 [facility] MCHC Auto (RBC) [Mass/Vol]Or dered By: Rosie Chew on 08-20-2022 MCHC (RBC) [Mass/Vol] 33.7 g/dL 32.5-35.6 [facility] MCV Auto (RBC) [Entitic vol] Ordered By: Rosie Chew on 08-20-2022 MCV (RBC) [Entitic vol] 113.6 fL 83.5-101 [facility] Macrocytes LM Ql (Bld)Ordere d By: Rosie Chew on 08-20-2022 Macrocytes Ql (Bld) Moderate [facility] Monocytes Auto (Bld) [#/Vol] Ordered By: Rosie Chew on 08-20-2022 Monocytes (Bld) [#/Vol] 0.4 10*3/uL 0.0-0.8 [facility] Monocytes/100 WBC Auto (Bld) Ordered By: Rosie Chew on 08-20-2022 Monocytes/100 WBC (Bld) 6.9 % . [facility] Neutrophils Auto (Bld) [#/Vo l]Ordered By: Rosie Chew on 08-20-2022 Neutrophils (Bld) [#/Vol] 4.1 10*3/uL 1.8-7.7 [facility] Neutrophils/100 WBC Auto (Bl d)Ordered By: Rosie Chew on 08-20-2022 Neutrophils/100 WBC (Bld) 69.2 % . [facility] No Panel InformationOrdered By: Rosie Chew on 08-20-2022 Urine Random Prot Electrophor Note See comment . [facility] Comment on above: Protein electrophore sis scan will follow via computer,mail, or revenue stamp cutter delivery.Performed at: [address] [id number] Director: Melchor Agrawal PhD, Phone: [phone] Estimated GFR () 34 mL/Min [facility] Comment on above: GFR estimated refere nce range: According to KDOQI guidelines, <60 ml/min/1.73m2 is sufficient to diagnose a patient with chronic kidney disease. Pharmacy Creatinine Clearance (Chem 30.39 [facility] Protein Electrophoresis M-Anselmo Not observed g/dL Not Observed [facility] Protein Electrophoresis Note See comment . [facility] Comment on above: Protein electrophore sis scan will follow via computer,mail, or revenue stamp cutter delivery.Performed at: [employer] [facility] [id number] [place] [id number] Director: Melchor Agrawal PhD, Phone: [phone] Nucleated erythrocytes [Pres ence] in Blood by Automated countOrdered By: Rosie Chew on 08-20-2022 Nucleated RBC Auto Ql (Bld) 0.1 /100{WBC} 0-0.5 [facility] Platelet adequacy [Presence] in Blood by Light microscopyOrdered By: Rosie Chew on 08-20-2022 Platelets LM Ql (Bld) Decreased Normal [facility] Platelet mean volume Auto (B ld) [Entitic vol]Ordered By: Rosie Chew on 08-20-2022 Platelet mean volume (Bld) [Entitic vol] 8.7 fL 6.6-10.1 [facility] Platelet morphology finding [Identifier] in BloodOrdered By: Rosie Chew on 08-20-2022 Platelet morphology finding Nom (Bld) Normal Normal [facility] Platelets Auto (Bld) [#/Vol] Ordered By: Rosie Chew on 08-20-2022 Platelets (Bld) [#/Vol] 101 10*3/uL 150-450 [facility] Poikilocytosis [Presence] in Blood by Light microscopyOrdered By: Rosie Chew on 08-20-2022 Poikilocytosis LM Ql (Bld) Moderate [facility] Polychromasia [Presence] in Blood by Light microscopyOrdered By: Rosie Chew on 08-20-2022 Polychromasia LM Ql (Bld) Slight [facility] Protein [Mass/volume] in Ser um or PlasmaOrdered By: Rosie Chew on 08-20-2022 Protein [Mass/Vol] 6.0 g/dL 6.1-7.9 [facility] Protein [Mass/Vol] 6.4 g/dL 6.0-8.5 [facility] Protein [Mass/volume] in Uri neOrdered By: Rosie Chew on 08-20-2022 Protein (U) [Mass/Vol] 49.4 mg/dL Not [facility] Protein.monoclonal/Protein.t otal in 24 hour Urine by ElectrophoresisOrdered By: Rosie Chew on 08-20-2022 Protein.monoclonal Elph (24H U) [Mass fraction] Comment: % Not Observed [facility] Comment on above: UPE shows an asymmet rical gamma. RBC Auto (Bld) [#/Vol]Ordere d By: Rosie Chew on 08-20-2022 RBC (Bld) [#/Vol] 2.11 10*6/uL 3.90-5.60 [facility] RBC morphologyOrdered By: Lew Chew on 08-20-2022 RBC morphology finding Nom (Bld) N/A [facility] Serum globulin measurement ( mass/volume)Ordered By: Rosie Chew on 08-20-2022 Globulin (S) [Mass/Vol] 3.1 g/dL 2.2-3.9 [facility] Serum or plasma alanine etienne otransferase measurement without P-5'-P (enzymatic activiOrdered By: Rosie Chew on 08-20-2022 ALT No additional P-5'-P [Catalytic activity/Vol] 18 U/L 10-60 [facility] Serum or plasma albumin/glob ulin mass ratioOrdered By: Rosie Chew on 08-20-2022 Albumin/Globulin [Mass ratio] 1.3 {ratio} [facility] Albumin/Globulin [Mass ratio] 1.1 {ratio} 0.7-1.7 [facility] Serum or plasma alkaline tammy sphatase measurement (enzymatic activity/volume)Ordered By: Rosie Chew on 08-20-2022 ALP [Catalytic activity/Vol] 93 U/L 32-92 [facility] Serum or plasma alpha 1 glob ulin measurement by electrophoresis (mass/volume)Ordered By: Rosie Chew on 08-20-2022 Alpha 1 globulin Elph [Mass/Vol] 0.3 g/dL 0.0-0.4 [facility] Serum or plasma alpha 2 glob ulin measurement by electrophoresis (mass/volume)Ordered By: Rosie Chew on 08-20-2022 Alpha 2 globulin Elph [Mass/Vol] 0.9 g/dL 0.4-1.0 [facility] Serum or plasma anion gap de terminationOrdered By: Rosie Chew on 08-20-2022 Anion gap [Moles/Vol] 12.7 mmol/L 6.0-15.0 [facility] Serum or plasma aspartate am inotransferase measurement (enzymatic activity/volume)Ordered By: Rosie Chew on 08-20-2022 AST [Catalytic activity/Vol] 19 U/L 10-42 [facility] Serum or plasma beta globuli n measurement by electrophoresis (mass/volume)Ordered By: Rosie Chew on 08-20-2022 Beta globulin Elph [Mass/Vol] 0.9 g/dL 0.7-1.3 [facility] Serum or plasma calcium reese urement (mass/volume)Ordered By: Rosie Chew on 08-20-2022 Calcium [Mass/Vol] 9.1 mg/dL 8.2-10.2 [facility] Serum or plasma chloride gurdeep surement (moles/volume)Ordered By: Rosie Chew on 08-20-2022 Chloride [Moles/Vol] 105 mmol/L 95-114 [facility] Serum or plasma gamma globul in measurement by electrophoresis (mass/volume)Ordered By: Rosie Chew on 08-20-2022 Gamma globulin Elph [Mass/Vol] 0.9 g/dL 0.4-1.8 [facility] Serum or plasma glucose reese urement (mass/volume)Ordered By: Rosie Chew on 08-20-2022 Glucose [Mass/Vol] 156 mg/dL 70-100 [facility] Comment on above: ADA recommended refe rence rangeRandom Glucose Reference Range is dependent on time and content of last meal. Glucose of more than 200 mg/dL in a nonstressed, ambulatory subject supports the diagnosis of Diabetes Mellitus. Serum or plasma potassium me asurement (moles/volume)Ordered By: Rosie Chew on 08-20-2022 Potassium [Moles/Vol] 5.9 mmol/L 3.5-5.1 [facility] Serum or plasma sodium measu rement (moles/volume)Ordered By: Rosie Chew on 08-20-2022 Sodium [Moles/Vol] 134 mmol/L 136-146 [facility] Serum or plasma total biliru bin measurement (mass/volume)Ordered By: Rosie Chew on 08-20-2022 Bilirubin [Mass/Vol] 0.3 mg/dL 0.3-1.2 [facility] Serum or plasma total carbon dioxide measurement (moles/volume)Ordered By: Rosie Chew on 08-20-2022 CO2 [Moles/Vol] 22.2 mmol/L 22.0-30.0 [facility] Serum or plasma urea nitroge n measurement (mass/volume)Ordered By: Rosie Chew on 08-20-2022 Urea nitrogen [Mass/Vol] 28 mg/dL 9-23 [facility] Urine alpha 1 globulin/total protein by electrophoresisOrdered By: Rosie Chew on 08-20-2022 Alpha 1 globulin Elph (U) [Mass fraction] 4.7 % . [facility] Urine alpha 2 globulin/total protein ratio by electrophoresisOrdered By: Rosie Chew on 08-20-2022 Alpha 2 globulin Elph (U) [Mass fraction] 10.8 % . [facility] Urine beta globulin measurem ent by electrophoresis (mass/volume)Ordered By: Rosie Chew on 08-20-2022 Beta globulin Elph (U) [Mass/Vol] 17.6 % . [facility] WBC Auto (Bld) [#/Vol]Ordere d By: Rosie Chew on 08-20-2022 WBC (Bld) [#/Vol] 5.9 10*3/uL 4.1-10.5 [facility] CULTURE URINEon 07-30-2022 CULTURE URINE Culture Observations : NO GROWTH. Normal [facility] Comment on above: Performed By: #### P TT, PT #### [facility] [address] [place] [address] Dr. Lydia Merritt POINT OF CARE GLUCOSEon 07-17 Glucose [Mass/Vol] 194 mg/dL Critically high 74-106 [facility] Comment on above: Performed By: #### P OCGLUC #### [facility] [address] [place] [address] Dr. Lydia Merritt UA (CLEAN/CATCH) SIDE FRAMER/MICRO I F IND.on 07-30-2022 Bilirubin Ql (U) Negative Normal NEGATIVE [facility] Comment on above: Performed By: #### U ACSALISSON ICRO #### [facility] [address] [place] [address] Dr. Lydia Merritt Clarity (U) CLOUDY Abnormal CLEAR [facility] Comment on above: Performed By: #### U ACSALISSON, UMICRO #### [facility] [address] [place] [address] Dr. Lydia Merritt Color (U) LT. YELLOW Normal YELLOW [facility] Comment on above: Performed By: #### U ACSIND, UMICRO #### [facility] [address] [place] [address] Dr. Lydia Merritt Glucose Ql (U) 100 mg/dl Abnormal NEGATIVE [facility] Comment on above: Performed By: #### U ACSIND, UMICRO #### [facility] [address] [place] [address] Dr. Lydia Merritt Hemoglobin Ql (U) LARGE Abnormal NEGATIVE [facility] Comment on above: Performed By: #### U ACSIND, UMICRO #### [facility] [address] [place] [address] Dr. Lydia Merritt Ketones Ql (U) Negative Normal NEGATIVE [facility] Comment on above: Performed By: #### U ACSIND, UMICRO #### [facility] [address] [address] [address] Lydia Merritt LEUKOCYTES MODERATE Abnormal NEGATIVE [facility] Comment on above: Performed By: #### U ACSIND, UMICRO #### [facility] [address] [place] [address] Dr. Lydia Merritt Nitrite Ql (U) Negative Normal NEGATIVE [facility] Comment on above: Performed By: #### U ACSALISSON UMICRO #### [facility] [address] [place] [address] Dr. Lydia Merritt pH (U) 7.0 [pH] Normal 5-9 [facility] Comment on above: Performed By: #### U ACSALISSON UMICRO #### [facility] [address] [place] [address] Dr. Lydia Merritt SPEC GRAVITY 1.010 Normal 1.005-<=1. 025 [facility] Comment on above: Performed By: #### U ACSALISSON UMICRO #### [facility] [address] [place] [address] Dr. Lydia Merritt UA PROTEIN >300 Abnormal NEGATIVE/ TRACE [facility] Comment on above: Performed By: #### U ACSALISSON UMICRO #### [facility] [address] [place] [address] Dr. Lydia Merritt UR MICRO IND INDICATED Normal [facility] Comment on above: Performed By: #### U ACSALISSON, UMICRO #### [facility] [address] [place] [address] Dr. Lydia Merritt Urobilinogen Qn (U) 0.2 {Caroline'U}/dL Normal 0.2 - 1. 0 [facility] Comment on above: Performed By: #### U ACSIND, UMICRO #### [facility] [address] [place] [address] Dr. Lydia Merritt URINE MICROSCOPIC ONLYon BACTERIA TRACE Abnormal NONE SEEN [facility] Comment on above: Performed By: #### P TT, PT #### [facility] [address] [place] [address] Dr. Lydia Merritt Bacteria identified Cx Nom (U) INDICATED Normal [facility] Comment on above: Performed By: #### P TT, PT #### [facility] [address] [place] [address] Dr. Lydia Merritt CAST NONE SEEN Normal NONE SEEN [facility] Comment on above: Performed By: #### P TT, PT #### [facility] [address] [place] [address] Dr. Lydia Merritt Crystals LM Nom (Urine sed) NONE SEEN Normal NONE SEEN [facility] Comment on above: Performed By: #### P TT, PT #### [facility] [address] [place] [address] Dr. Lydia Merritt Epithelial cells LM Ql (Urine sed) NONE SEEN Normal NONE SEEN /RARE [facility] Comment on above: Performed By: #### P TT, PT #### [facility] [address] [place] [address] Dr. Lydia Merritt MUCOUS NONE SEEN Normal NONE SEEN [facility] Comment on above: Performed By: #### P TT, PT #### [facility] [address] [place] [address] Dr. Lydia Merritt RBC (U) [#/Vol] /uL Abnormal 0-2 [facility] Comment on above: Performed By: #### P TT, PT #### [facility] [address] [place] [address] Dr. Lydia Merritt WBC (U) [#/Vol] /uL Abnormal NONE SEEN [facility] Comment on above: Performed By: #### P TT, PT #### [facility] [address] [place] [address] Dr. Lydia Merritt Covid-19 PCR ([facility])on 07-17 SARS-CoV-2 (COVID-19) RNA ERIN+probe Ql (Unsp spec) Not detected Normal NOT DETECTED [facility] Comment on above: Result Comment: When [...] for this test is supported by the [employer] of Health and Human Service's declaration that [...] Performed By: #### P TT, PT #### [facility] [address] [place] [address] Dr. Lydia Merritt Albumin [Mass/volume] in Ser um or PlasmaOrdered By: Brook Huddleston on 07-21-2022 Albumin [Mass/Vol] 3.0 g/dL 3.2-5.5 [facility] Albumin [Mass/Vol] 2.9 g/dL 2.9-4.4 [facility] Albumin/Protein.total in 24 hour Urine by ElectrophoresisOrdered By: Brook Huddleston on 07-21-2022 Albumin Elph (24H U) [Mass fraction] 35.7 % . [facility] Basophils Auto (Bld) [#/Vol] Ordered By: Brook Huddleston on 07-21-2022 Basophils (Bld) [#/Vol] 0.0 10*3/uL 0.0-0.2 [facility] Basophils/100 WBC Auto (Bld) Ordered By: Brook Huddleston on 07-21-2022 Basophils/100 WBC (Bld) 0.2 % . [facility] Creatinine and Glomerular fi ltration rate.predicted panel (S/P/Bld)Ordered By: Brook Huddleston on 07-21-2022 Creatinine [Mass/Vol] 1.95 mg/dL 0.64-1.27 [facility] Eosinophils Auto (Bld) [#/Vo l]Ordered By: Brook Huddleston on 07-21-2022 Eosinophils (Bld) [#/Vol] 0.1 10*3/uL 0.0-0.45 [facility] Eosinophils/100 WBC Auto (Bl d)Ordered By: Brook Huddleston on 07-21-2022 Eosinophils/100 WBC (Bld) 3.0 % . [facility] Erythrocyte distribution wid th Auto (RBC) [Ratio]Ordered By: Brook Huddleston on 07-21-2022 Erythrocyte distribution width (RBC) [Ratio] 17.1 % 12.0-14.8 [facility] Estimated glomerular filtrat ion rate (GFR) non- AmericanOrdered By: Brook Huddleston on 07-21-2022 GFR/1.73 sq M.predicted among non-blacks MDRD (S/P/Bld) [Vol rate/Area] 34 mL/Min [facility] Gamma globulin/Protein.total in 24 hour Urine by ElectrophoresisOrdered By: Brook Huddleston on 07-21-2022 Gamma globulin Elph (24H U) [Mass fraction] 18.6 % . [facility] Globulin Calc (S) [Mass/Vol] Ordered By: Brook Huddleston on 07-21-2022 Globulin (S) [Mass/Vol] 2.8 g/dL [facility] Hematocrit Auto (Bld) [Volum e fraction]Ordered By: Brook Huddleston on 07-21-2022 Hematocrit (Bld) [Volume fraction] 25.2 % 38.8-50.0 [facility] Hemoglobin [Mass/volume] in BloodOrdered By: Brook Huddleston on 07-21-2022 Hemoglobin (Bld) [Mass/Vol] 8.6 g/dL 13.0-17.0 [facility] IgA [Mass/volume] in Serum o r PlasmaOrdered By: Brook Huddleston on 07-21-2022 IgA [Mass/Vol] 208 mg/dL 61-437 [facility] IgG [Mass/volume] in Serum o r PlasmaOrdered By: Brook Huddleston on 07-21-2022 IgG [Mass/Vol] 905 mg/dL 603-1613 [facility] IgM [Mass/volume] in Serum o r PlasmaOrdered By: Brook Huddleston on 07-21-2022 IgM [Mass/Vol] 24 mg/dL 15-143 [facility] Comment on above: Result confirmed on concentration.Performed at: [employer] [address] [id number] Director: Melchor Agrawal PhD, Phone: [phone] Immunofixation for UrineOrde red By: Brook Huddleston on 07-21-2022 Interpretation Immunofixation (U) [Interp] See comment . [facility] Comment on above: No monoclonality det ected.Performed at: [employer] [address] [id number] Director: Melchor Agrawal PhD, Phone: [phone] Immunoglobulin light chains. kappa.free [Mass/volume] in SerumOrdered By: Brook Huddleston on 07-21-2022 Immunoglobulin light chains.kappa.free (S) [Mass/Vol] 39.4 mg/L 3.3-19.4 [facility] Immunoglobulin light chains. kappa.free/Immunoglobulin light chains.lambda.free [MassOrdered By: Brook Huddleston on 07-21-2022 Immunoglobulin light chains.kappa.free/Immun oglobulin light chains.lambda.free (S) [Mass ratio] 1.62 0.26-1.65 [facility] Comment on above: Performed at: [employer] [address] [id number] Director: Melchor Agrawal PhD, Phone: [phone] Immunoglobulin light chains. lambda.free [Mass/volume] in Serum or PlasmaOrdered By: Brook Huddleston on 07-21-2022 Immunoglobulin light chains.lambda.free [Mass/Vol] 24.3 mg/L 5.7-26.3 [facility] Lactate dehydrogenase measur ement (enzymatic activity/volume)Ordered By: Brook Huddleston on 07-21-2022 LDH (Unsp spec) [Catalytic activity/Vol] 145 U/L 45-190 [facility] Leukocytes [#/volume] correc lizbet for nucleated erythrocytes in Blood by Automated counOrdered By: Brook Huddleston on 07-21-2022 WBC corrected for nucl RBC Auto (Bld) [#/Vol] 3.9 10*3/uL 4.1-10.5 [facility] Lymphocytes Auto (Bld) [#/Vo l]Ordered By: Brook Huddleston on 07-21-2022 Lymphocytes (Bld) [#/Vol] 0.5 10*3/uL 1.00-4.8 [facility] Lymphocytes/100 WBC Auto (Bl d)Ordered By: Brook Huddleston on 07-21-2022 Lymphocytes/100 WBC (Bld) 13.1 % . [facility] MCH Auto (RBC) [Entitic mass ]Ordered By: Brook Huddleston on 07-21-2022 MCH (RBC) [Entitic mass] 37.2 pg 27.5-35.2 [facility] MCHC Auto (RBC) [Mass/Vol]Or dered By: Brook Huddleston on 07-21-2022 MCHC (RBC) [Mass/Vol] 34.0 g/dL 32.5-35.6 [facility] MCV Auto (RBC) [Entitic vol] Ordered By: Brook Huddleston on 07-21-2022 MCV (RBC) [Entitic vol] 109.5 fL 83.5-101 [facility] Monocytes Auto (Bld) [#/Vol] Ordered By: Brook Huddleston on 07-21-2022 Monocytes (Bld) [#/Vol] 0.5 10*3/uL 0.0-0.8 [facility] Monocytes/100 WBC Auto (Bld) Ordered By: Brook Huddleston on 07-21-2022 Monocytes/100 WBC (Bld) 13.2 % . [facility] Neutrophils Auto (Bld) [#/Vo l]Ordered By: Brook Huddleston on 07-21-2022 Neutrophils (Bld) [#/Vol] 2.7 10*3/uL 1.8-7.7 [facility] Neutrophils/100 WBC Auto (Bl d)Ordered By: Brook Huddleston on 07-21-2022 Neutrophils/100 WBC (Bld) 70.5 % . [facility] No Panel InformationOrdered By: Brook Huddleston on 07-21-2022 Estimated GFR () 41 mL/Min [facility] Comment on above: GFR estimated refere nce range: According to KDOQI guidelines, <60 ml/min/1.73m2 is sufficient to diagnose a patient with chronic kidney disease. Pharmacy Creatinine Clearance (Chem 35.77 [facility] Protein Electrophoresis M-Anselmo Comment: g/dL Not Observed [facility] Comment on above: SPE shows asymmetric al beta. Protein Electrophoresis Note See comment . [facility] Comment on above: Protein electrophore sis scan will follow via computer,mail, or revenue stamp cutter delivery.Performed at: [employer] [id number] Director: Melchor Agrawal PhD, Phone: [phone] Urine Random Prot Electrophor Note See comment . [facility] Comment on above: Protein electrophore sis scan will follow via computer,mail, or revenue stamp cutter delivery.Performed at: [employer] [id number] Director: Melchor Agrawal PhD, Phone: [phone] Nucleated erythrocytes [Pres ence] in Blood by Automated countOrdered By: Brook Huddleston on 07-21-2022 Nucleated RBC Auto Ql (Bld) 0.1 /100{WBC} 0-0.5 [facility] Platelet mean volume Auto (B ld) [Entitic vol]Ordered By: Brook Huddlestno on 07-21-2022 Platelet mean volume (Bld) [Entitic vol] 8.3 fL 6.6-10.1 [facility] Platelets Auto (Bld) [#/Vol] Ordered By: Brook Huddleston on 07-21-2022 Platelets (Bld) [#/Vol] 101 10*3/uL 150-450 [facility] Protein [Mass/volume] in Ser um or PlasmaOrdered By: Brook Huddleston on 07-21-2022 Protein [Mass/Vol] 5.8 g/dL 6.1-7.9 [facility] Protein [Mass/Vol] 5.9 g/dL 6.0-8.5 [facility] Protein [Mass/volume] in Uri neOrdered By: Brook Huddleston on 12-05-2022 Protein (U) [Mass/Vol] 95.7 mg/dL Not Estab. Fi [facility] Protein.monoclonal/Protein.t otal in 24 hour Urine by ElectrophoresisOrdered By: Brook Huddleston on 07-21-2022 Protein.monoclonal Elph (24H U) [Mass fraction] Comment: % Not Observed [facility] Comment on above: UPE shows asymmetric al beta and gamma regions. RBC Auto (Bld) [#/Vol]Ordere d By: Brook Huddleston on 07-21-2022 RBC (Bld) [#/Vol] 2.30 10*6/uL 3.90-5.60 [facility] Serum globulin measurement ( mass/volume)Ordered By: Brook Huddleston on 07-21-2022 Globulin (S) [Mass/Vol] 3.0 g/dL 2.2-3.[address] [facility] Serum or plasma alanine etienne otransferase measurement without P-5'-P (enzymatic activiOrdered By: Brook Huddleston on 07-21-2022 ALT No additional P-5'-P [Catalytic activity/Vol] 37 U/L 10-60 [facility] Serum or plasma albumin/glob ulin mass ratioOrdered By: Brook Huddleston on 07-21-2022 Albumin/Globulin [Mass ratio] 1.1 {ratio} [facility] Albumin/Globulin [Mass ratio] 1.0 {ratio} 0.7-1.7 [facility] Serum or plasma alkaline tammy sphatase measurement (enzymatic activity/volume)Ordered By: Brook Huddleston on 07-21-2022 ALP [Catalytic activity/Vol] 110 U/L 32-92 [facility] Serum or plasma alpha 1 glob ulin measurement by electrophoresis (mass/volume)Ordered By: Brook Huddleston on 07-21-2022 Alpha 1 globulin Elph [Mass/Vol] 0.4 g/dL 0.0-0.4 [facility] Serum or plasma alpha 2 glob ulin measurement by electrophoresis (mass/volume)Ordered By: Brook Huddleston on 07-21-2022 Alpha 2 globulin Elph [Mass/Vol] 1.0 g/dL 0.4-1.0 [facility] Serum or plasma anion gap de terminationOrdered By: Brook Huddleston on 07-21-2022 Anion gap [Moles/Vol] 15.6 mmol/L 6.0-15.0 [facility] Serum or plasma aspartate am inotransferase measurement (enzymatic activity/volume)Ordered By: Brook Huddleston on 07-21-2022 AST [Catalytic activity/Vol] 27 U/L 10-42 [facility] Serum or plasma beta globuli n measurement by electrophoresis (mass/volume)Ordered By: Brook Huddleston on 07-21-2022 Beta globulin Elph [Mass/Vol] 0.8 g/dL 0.7-1.3 [facility] Serum or plasma calcium reese urement (mass/volume)Ordered By: Brook Huddleston on 07-21-2022 Calcium [Mass/Vol] 8.6 mg/dL 8.2-10.2 [facility] Serum or plasma chloride gurdeep surement (moles/volume)Ordered By: Brook Huddleston on 07-21-2022 Chloride [Moles/Vol] 100 mmol/L 95-114 [facility] Serum or plasma gamma globul in measurement by electrophoresis (mass/volume)Ordered By: Brook Huddleston on 07-21-2022 Gamma globulin Elph [Mass/Vol] 0.8 g/dL 0.4-1.8 [facility] Serum or plasma glucose reese urement (mass/volume)Ordered By: Brook Huddleston on 07-21-2022 Glucose [Mass/Vol] 191 mg/dL 70-100 [facility] Comment on above: ADA recommended refe rence rangeRandom Glucose Reference Range is dependent on time and content of last meal. Glucose of more than 200 mg/dL in a nonstressed, ambulatory subject supports the diagnosis of Diabetes Mellitus. Serum or plasma potassium me asurement (moles/volume)Ordered By: Brook Huddleston on 07-21-2022 Potassium [Moles/Vol] 4.7 mmol/L 3.5-5.1 [facility] Serum or plasma sodium measu rement (moles/volume)Ordered By: Brook Huddleston on 07-21-2022 Sodium [Moles/Vol] 128 mmol/L 136-146 [facility] Serum or plasma total biliru bin measurement (mass/volume)Ordered By: Brook Huddleston on 07-21-2022 Bilirubin [Mass/Vol] 0.7 mg/dL 0.3-1.2 [facility] Serum or plasma total carbon dioxide measurement (moles/volume)Ordered By: Brook Huddleston on 07-21-2022 CO2 [Moles/Vol] 17.1 mmol/L 22.0-30.0 [facility] Serum or plasma urea nitroge n measurement (mass/volume)Ordered By: Brook Huddleston on 07-21-2022 Urea nitrogen [Mass/Vol] 26 mg/dL 05-09 [facility] Urine alpha 1 globulin/total protein by electrophoresisOrdered By: Brook Huddleston on 07-21-2022 Alpha 1 globulin Elph (U) [Mass fraction] 6.5 % . [facility] Urine alpha 2 globulin/total protein ratio by electrophoresisOrdered By: Brook Huddleston on 07-21-2022 Alpha 2 globulin Elph (U) [Mass fraction] 18.3 % . [facility] Urine beta globulin measurem ent by electrophoresis (mass/volume)Ordered By: Brook Huddleston on 07-21-2022 Beta globulin Elph (U) [Mass/Vol] 20.8 % . [facility] WBC Auto (Bld) [#/Vol]Ordere d By: Brook Huddleston on 07-21-2022 WBC (Bld) [#/Vol] 3.9 10*3/uL 4.1-10.5 [facility] CBC AUTO DIFFon 07-17-2022 BASO # 0.0 103/ul Normal 0.0-0.1 [facility] Comment on above: Performed By: #### P TT, PT #### [facility] [address] [address] [address] Lydia Merritt Basophils/100 WBC (Bld) 0.4 % Normal 0.2-2.0 [facility] Comment on above: Performed By: #### P TT, PT #### [facility] [address] [address] [address] Lydia Merritt EO # 0.4 103/ul Normal 0.0-0.7 [facility] Comment on above: Performed By: #### P TT, PT #### [facility] [address] [place] [address] Dr. Lydia Merritt Eosinophils/100 WBC (Bld) 7.6 % Critically high 0.9-7.0 [facility] Comment on above: Performed By: #### P TT, PT #### [facility] [address] [place] [address] Dr. Lydia Merritt Erythrocyte distribution width (RBC) [Ratio] 16.0 % Critically high 11.0-15.0 [facility] Comment on above: Performed By: #### P TT, PT #### [facility] [address] [place] [address] Dr. Lydia Merritt Hematocrit (Bld) [Volume fraction] 26.9 % Critically low 42.0-54.0 [facility] Comment on above: Performed By: #### P TT, PT #### [facility] [address] [place] [address] Dr. Lydia Merritt Hemoglobin (Bld) [Mass/Vol] 9.0 g/dL Critically low 14.0-18.0 [facility] Comment on above: Performed By: #### P TT, PT #### [facility] [address] [place] [address] Dr. Lydia Merritt IG # 0.02 10e3/ul Normal 0.00-0.03 [facility] Comment on above: Performed By: #### P TT, PT #### [facility] [address] [place] [address] Dr. Lydia Merritt IG % 0.4 % Normal 0.0-0.5 [facility] Comment on above: Performed By: #### P TT, PT #### [facility] [address] [place] [address] Dr. Lydia Merritt LYMPH # 0.6 103/ul Critically low 1.2-3.8 [facility] Comment on above: Performed By: #### P TT, PT #### [facility] [address] [place] [address] Dr. Lydia Merritt Lymphocytes/100 WBC (Bld) 12.4 % Critically low 20.5-60.0 [facility] Comment on above: Performed By: #### P TT, PT #### [facility] [address] [place] [address] Dr. Lydia Merritt MANUAL DIFF REQ NO Normal [facility] Comment on above: Performed By: #### P TT, PT #### [facility] [address] [place] [address] Dr. Lydia Merritt MCH (RBC) [Entitic mass] 37.3 pg Critically high 25.9-34.0 [facility] Comment on above: Performed By: #### P TT, PT #### [facility] [address] [place] [address] Dr. Lydia Merritt MCHC (RBC) [Mass/Vol] 33.5 g/dL Normal 29.9-35.2 [facility] Comment on above: Performed By: #### P TT, PT #### [facility] [address] [place] [address] Dr. Lydia Merritt MCV (RBC) [Entitic vol] 111.6 fL Critically high 80.0-94 .0 [facility] Comment on above: Result Comment: MACR OCYTOSIS 2+ Performed By: #### P TT, PT #### [facility] [address] [place] [address] Dr. Lydia Merritt MONO # 0.5 103/ul Normal 0.3-0.8 [facility] Comment on above: Performed By: #### P TT, PT #### [facility] [address] [place] [address] Dr. Lydia Merritt Monocytes/100 WBC (Bld) 10.8 % Normal 1.7-12.0 [facility] Comment on above: Performed By: #### P TT, PT #### [facility] [address] [place] [address] Dr. Lydia Merritt NEUT # 3.2 103/ul Normal 1.4-6.5 [facility] Comment on above: Performed By: #### P TT, PT #### [facility] [address] [place] [address] Dr. Lydia Merritt Neutrophils/100 WBC (Bld) 68.4 % Normal 43.0-75.0 [facility] Comment on above: Performed By: #### P TT, PT #### [facility] [address] [place] [address] Dr. Lydia Merritt Platelet mean volume (Bld) [Entitic vol] 10.1 fL Normal 9.5-13.5 [facility] Comment on above: Performed By: #### P TT, PT #### [facility] [address] [place] [address] Dr. Lydia Merritt PLT 110 103/ul Critically low 150-450 [facility] Comment on above: Performed By: #### P TT, PT #### [facility] [address] [place] [address] Dr. Lydia Merritt RBC 2.41 106/ul Critically low 4.70-6.10 [facility] Comment on above: Performed By: #### P TT, PT #### [facility] [address] [place] [address] Dr. Lydia Merritt WBC 4.6 103/ul Normal 4.0-11.0 [facility] Comment on above: Performed By: #### P TT, PT #### [facility] [address] [place] [address] Dr. Lydia Merritt PROF CHEM 8 (BAS METB)on Anion gap [Moles/Vol] 11.9 mmol/L Normal [facility] Comment on above: Performed By: #### B MP #### [facility] [address] [place] [address] Dr. Lydia Merritt Calcium [Mass/Vol] 9.0 mg/dL Normal 8.5-10.1 [facility] Comment on above: Performed By: #### B MP #### [facility] [address] [place] [address] Dr. Lydia Merritt Chloride [Moles/Vol] 105 mmol/L Normal 98-107 [facility] Comment on above: Performed By: #### B MP #### [facility] [address] [place] [address] Dr. Lydia Merritt CO2 [Moles/Vol] 25.2 mmol/L Normal 21.0-32.0 [facility] Comment on above: Performed By: #### B MP #### [facility] [address] [address] [address] Lydia Merritt Creatinine [Mass/Vol] 1.71 mg/dL Critically high 0.70-1.30 [facility] Comment on above: Performed By: #### B MP #### [facility] [address] [address] [address] Lydia Merritt EGFR-AF CAMBODIAN 47 mL/min/1.73m2 Critically low >=60 [facility] Comment on above: Performed By: #### B MP #### [facility] [address] [address] [address] Lydia Merritt EGFR-NON AF CAMBODIAN 39 mL/min/1.73m2 Critically low >=60 [facility] Comment on above: Performed By: #### B MP #### [facility] [address] [address] [address] Lydia Merritt Glucose [Mass/Vol] 127 mg/dL Critically high 74-106 [facility] Comment on above: Performed By: #### B MP #### [facility] [address] [address] [address] Lydia Merritt Potassium [Moles/Vol] 5.1 mmol/L Normal 3.5-5.1 [facility] Comment on above: Performed By: #### B MP #### [facility] [address] [address] [address] Lydia Merritt Sodium [Moles/Vol] 137 mmol/L Normal 136-145 [facility] Comment on above: Performed By: #### B MP #### [facility] [address] [address] [address] Lydia Merritt Urea nitrogen [Mass/Vol] 23.0 mg/dL Critically high 7.0-18.0 [facility] Comment on above: Performed By: #### B MP #### [facility] [address] [address] [address] Lydia Merritt Urea nitrogen/Creatinine [Mass ratio] 13.5 mg/mg Normal [facility] Comment on above: Performed By: #### B MP #### [facility] [address] [place] [address] Dr. Lydia Merritt PROTIMEon 07-17-2022 INR Coag (PPP) [Relative time] 0.97 {INR} Normal [facility] Comment on above: Performed By: #### P TT, PT #### [facility] [address] [place] [address] Dr. Lydia Merritt INR GUIDELINES SEE BELOW Normal [facility] Comment on above: Result Comment: DILLON RED INR: 2.0 - 3.0 CONDITIONS NOT LISTED BELOW 2.5 - 3.5 FOR PROSTHETIC HEART VALVE REPLACEMENT 2.5 - 3.5 RECURRENT THROMBOSIS Performed By: #### P TT, PT #### [facility] [address] [place] [address] Dr. Lydia Merritt PT Coag (PPP) [Time] 10.5 s Normal 9.0-11.6 [facility] Comment on above: Performed By: #### P TT, PT #### [facility] [address] [place] [address] Dr. Lydia Merritt PTTon 07-17-2022 aPTT Coag (Bld) [Time] 27.1 s Normal 22.3-36.2 [facility] Comment on above: Performed By: #### P TT, PT #### [facility] [address] [place] [address] Dr. Lydia Merritt US BLADDERon 07-17-2022 US BLADDER EXAMINATION: US BLAD JANET HISTORY: Lower urinary tract symptoms due to [...] by: CHAD BURNETTE Date: 2022-07-17 17:10 Normal [facility] XR CHEST 2 Von 07-17-2022 XR CHEST 2 V EXAM: Frontal and la teral chest HISTORY: . Benign prostatic hyperplasia . COMPARISON: 03/04/2020 TECHNIQUE: Frontal and lateral chest FINDINGS: Heart and vascularity are unremarkable. Lungs are free of focal infiltrates. Atherosclerotic changes of the thoracic aorta are noted. Early spondylosis of the spine is noted. IMPRESSION: No acute heart or lung disease identified. Electronically authenticated by: CHAD QUINTERO Date: 2022-07-17 12:21 Normal [facility] Clinic Note - Heme Oncon Clinic Note - Heme Onc Cancer History: Treatment Synopsis: Mr Cunningham was initially referred from Dr. 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 Treatment History: Mr. 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 Hospital course notable for 8 of 8 blood cultures growing MSSA, ECHO negative for vegetation. He was discharged to [facility] for physical rehab & to complete treatment with Cefazolin 2gm IV every 8 hrs through 08/20/2020. 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 ONC - Presented with light chain nephropathy in February 2020. - At the time of diagnosis: Free [place] Light Chain was 1200 mg/dL; M Anselmo IgG [place] P (more content not included)... Normal [facility] Albumin [Mass/volume] in Ser um or PlasmaOrdered By: Brook Huddleston on 06-13-2022 Albumin [Mass/Vol] 3.543640848468 g/dL [facility] Comment on above: Reference: 2.9-4.4 Albumin/Protein.total in 24 hour Urine by ElectrophoresisOrdered By: Brook Huddleston on 06-13-2022 Albumin Elph (24H U) [Mass fraction] 40.2 % . [facility] Anisocytosis LM Ql (Bld)Orde red By: Brook Huddleston on 06-13-2022 Anisocytosis Ql (Bld) Slight [facility] Basophils Auto (Bld) [#/Vol] Ordered By: Brook Huddleston on 06-13-2022 Basophils (Bld) [#/Vol] 0.0 10*3/uL 0.0-0.2 [facility] Basophils/100 WBC Auto (Bld) Ordered By: Brook Huddleston on 06-13-2022 Basophils/100 WBC (Bld) 0.5 % . [facility] Body fluid albumin measureme nt (mass/volume)Ordered By: Brook Huddleston on 06-13-2022 Albumin (Body fld) [Mass/Vol] 3.3 g/dL 3.2-5.5 [facility] Creatinine and Glomerular fi ltration rate.predicted panel (S/P/Bld)Ordered By: Brook Huddleston on 06-13-2022 Creatinine [Mass/Vol] 2.40 mg/dL 0.64-1.27 [facility] Eosinophils Auto (Bld) [#/Vo l]Ordered By: Brook Huddleston on 06-13-2022 Eosinophils (Bld) [#/Vol] 0.6 10*3/uL 0.0-0.45 [facility] Eosinophils/100 WBC Auto (Bl d)Ordered By: Brook Huddleston on 06-13-2022 Eosinophils/100 WBC (Bld) 12.4 % . [facility] Erythrocyte distribution wid th Auto (RBC) [Ratio]Ordered By: Brook Huddleston on 06-13-2022 Erythrocyte distribution width (RBC) [Ratio] 15.3 % 12.0-14.8 [facility] Estimated glomerular filtrat ion rate (GFR) non- AmericanOrdered By: Brook Huddleston on 06-13-2022 GFR/1.73 sq M.predicted among non-blacks MDRD (S/P/Bld) [Vol rate/Area] 26 mL/Min [facility] Gamma globulin/Protein.total in 24 hour Urine by ElectrophoresisOrdered By: Brook Huddleston on 06-13-2022 Gamma globulin Elph (24H U) [Mass fraction] 23.3 % . [facility] Globulin Calc (S) [Mass/Vol] Ordered By: Brook Huddleston on 06-13-2022 Globulin (S) [Mass/Vol] 2.8 g/dL [facility] Hematocrit Auto (Bld) [Volum e fraction]Ordered By: Brook Huddleston on 06-13-2022 Hematocrit (Bld) [Volume fraction] 30.5 % 38.8-50.0 [facility] Hemoglobin [Mass/volume] in BloodOrdered By: Brook Huddleston on 06-13-2022 Hemoglobin (Bld) [Mass/Vol] 10.2 g/dL 13.0-17.0 [facility] IgA [Mass/volume] in Serum o r PlasmaOrdered By: Broko Huddleston on 06-13-2022 IgA [Mass/Vol] 232 mg/dL [facility] Comment on above: Reference: 61-437 IgG [Mass/volume] in Serum o r PlasmaOrdered By: Brook Huddleston on 06-13-2022 IgG [Mass/Vol] 972 mg/dL [facility] Comment on above: Reference: [id number] IgM [Mass/volume] in Serum o r PlasmaOrdered By: Brook Huddleston on 06-13-2022 IgM [Mass/Vol] 30 mg/dL [facility] Comment on above: Reference: 15-143 Immunofixation for UrineOrde red By: Brook Huddleston on 06-13-2022 Interpretation Immunofixation (U) [Interp] Comment: . [facility] Comment on above: Presence of monoclon al protein is unclear at this time. Suggestrepeat in 3 to 6 months if clinically indicated.Performed at: [facility] [id number] Director: Melchor Agrawal PhD, Phone: [phone] Laboratory - Hematology and Cell countsOrdered By: Brook Huddleston on 06-13-2022 Nucleated RBC/100 WBC (Bld) [Ratio] 0.3 % 0-0.5 [facility] WBC (Bld) [#/Vol] 5.4 10*3/uL 4.5-11.0 [facility] Lactate dehydrogenase measur ement (enzymatic activity/volume)Ordered By: Brook Huddleston on 10-28-2022 LDH (Unsp spec) [Catalytic activity/Vol] 125 U/L 45-190 [facility] Lymphocytes Auto (Bld) [#/Vo l]Ordered By: Brook Huddleston on 06-13-2022 Lymphocytes (Bld) [#/Vol] 0.9 10*3/uL 1.00-4.8 [facility] Lymphocytes/100 WBC Auto (Bl d)Ordered By: Brook Huddleston on 06-13-2022 Lymphocytes/100 WBC (Bld) 18.9 % . [facility] MCH Auto (RBC) [Entitic mass ]Ordered By: Brook Huddleston on 06-13-2022 MCH (RBC) [Entitic mass] 36.7 pg 27.5-35.2 [facility] MCHC Auto (RBC) [Mass/Vol]Or dered By: Brook Huddleston on 06-13-2022 MCHC (RBC) [Mass/Vol] 33.5 g/dL 32.5-35.6 [facility] MCV Auto (RBC) [Entitic vol] Ordered By: Brook Huddleston on 06-13-2022 MCV (RBC) [Entitic vol] 109.7 fL 83.5-101 [facility] Macrocytes LM Ql (Bld)Ordere d By: Brook Huddleston on 06-13-2022 Macrocytes Ql (Bld) Moderate [facility] Monocytes Auto (Bld) [#/Vol] Ordered By: Brook Huddleston on 06-13-2022 Monocytes (Bld) [#/Vol] 0.7 10*3/uL 0.0-0.8 [facility] Monocytes/100 WBC Auto (Bld) Ordered By: Brook Huddleston on 06-13-2022 Monocytes/100 WBC (Bld) 14.2 % . [facility] Neutrophils Auto (Bld) [#/Vo l]Ordered By: Brook Huddleston on 06-13-2022 Neutrophils (Bld) [#/Vol] 2.7 10*3/uL 1.8-7.7 [facility] Neutrophils/100 WBC Auto (Bl d)Ordered By: Brook Huddleston on 06-13-2022 Neutrophils/100 WBC (Bld) 54.0 % . [facility] No Panel InformationOrdered By: Brook Huddleston on 06-13-2022 0.3 % 0-0.5 [facility] Estimated GFR () 32 mL/Min [facility] Comment on above: GFR estimated refere nce range: According to KDOQI guidelines, <60 ml/min/1.73m2 is sufficient to diagnose a patient with chronic kidney disease. Pharmacy Creatinine Clearance (Chem 30.32 [facility] Protein Electrophoresis M-Anselmo Not observed [facility] Comment on above: Reference: Not Obser jonathan Protein Electrophoresis Note See comment [facility] Comment on above: Protein electrophore sis scan will follow via computer, mail, or revenue stamp cutter delivery.Performing Labs01: - [facility], [id number] Dir: Melchor Agrawal, PhDFor Inquiries, the physician may contact Branch: [phone] Lab: [phone] Serum Immunofixation See comment [facility] Comment on above: No monoclonality det ected. Urine Random Prot Electrophor Note See comment . [facility] Comment on above: Protein electrophore sis scan will follow via computer,mail, or revenue stamp cutter delivery. See comment [facility] Ovalocyte detectionOrdered B y: Brook Huddleston on 06-13-2022 Ovalocytes LM Ql (Bld) Slight [facility] Platelet adequacy [Presence] in Blood by Light microscopyOrdered By: Brook Huddleston on 06-13-2022 Platelets LM Ql (Bld) Decreased Normal [facility] Platelet mean volume Auto (B ld) [Entitic vol]Ordered By: Brook Huddleston on 06-13-2022 Platelet mean volume (Bld) [Entitic vol] 9.1 fL 6.6-10.1 [facility] Platelet morphology finding [Identifier] in BloodOrdered By: Brook Huddleston on 06-13-2022 Platelet morphology finding Nom (Bld) Normal Normal [facility] Platelets Auto (Bld) [#/Vol] Ordered By: Brook Huddleston on 06-13-2022 Platelets (Bld) [#/Vol] 122 10*3/uL 150-450 [facility] Poikilocytosis [Presence] in Blood by Light microscopyOrdered By: Brook Huddleston on 06-13-2022 Poikilocytosis LM Ql (Bld) Slight [facility] Protein [Mass/volume] in Ser um or PlasmaOrdered By: Brook Huddleston on 06-13-2022 Protein [Mass/Vol] 6.1 g/dL 6.1-7.9 [facility] Protein [Mass/Vol] 6.770047915204 g/dL [facility] Comment on above: Reference: 6.0-8.5 Protein [Mass/volume] in Uri neOrdered By: Brook Huddleston on 06-13-2022 Protein (U) [Mass/Vol] 132.7 mg/dL Not Estab. [facility] Protein.monoclonal/Protein.t otal in 24 hour Urine by ElectrophoresisOrdered By: Brook Huddleston on 06-13-2022 Protein.monoclonal Elph (24H U) [Mass fraction] Comment: % Not Observed [facility] Comment on above: UPE shows asymmetric al gamma. RBC Auto (Bld) [#/Vol]Ordere d By: Brook Huddleston on 06-13-2022 RBC (Bld) [#/Vol] 2.78 10*6/uL 3.90-5.60 [facility] RBC morphologyOrdered By: Am safia Huddleston on 06-13-2022 RBC morphology finding Nom (Bld) N/A [facility] Serum globulin measurement ( mass/volume)Ordered By: Brook Huddleston on 06-13-2022 Globulin (S) [Mass/Vol] 3.187358556686 g/dL [facility] Comment on above: Reference: 2.2-3.9 Serum or plasma alanine etienne otransferase measurement without P-5'-P (enzymatic activiOrdered By: Brook Huddleston on 06-13-2022 ALT No additional P-5'-P [Catalytic activity/Vol] 33 U/L 10-60 [facility] Serum or plasma albumin/glob ulin mass ratioOrdered By: Brook Huddleston on 06-13-2022 Albumin/Globulin [Mass ratio] 1.2 {ratio} [facility] Albumin/Globulin [Mass ratio] 1.0 {ratio} [facility] Comment on above: Reference: 0.7-1.7 Serum or plasma alkaline tammy sphatase measurement (enzymatic activity/volume)Ordered By: Brook Huddleston on 06-13-2022 ALP [Catalytic activity/Vol] 116 U/L 32-92 [facility] Serum or plasma alpha 1 glob ulin measurement by electrophoresis (mass/volume)Ordered By: Brook Huddleston on 06-13-2022 Alpha 1 globulin Elph [Mass/Vol] 0.0284227064846 g/dL [facility] Comment on above: Reference: 0.0-0.4 Serum or plasma alpha 2 glob ulin measurement by electrophoresis (mass/volume)Ordered By: Brook Huddleston on 06-13-2022 Alpha 2 globulin Elph [Mass/Vol] 1.774054048926 g/dL [facility] Comment on above: Reference: 0.4-1.0 Serum or plasma anion gap de terminationOrdered By: Brook Huddleston on 06-13-2022 Anion gap [Moles/Vol] 17.0 mmol/L 6.0-15.0 [facility] Serum or plasma aspartate am inotransferase measurement (enzymatic activity/volume)Ordered By: Brook Huddleston on 06-13-2022 AST [Catalytic activity/Vol] 24 U/L 10-42 [facility] Serum or plasma beta globuli n measurement by electrophoresis (mass/volume)Ordered By: Brook Huddleston on 06-13-2022 Beta globulin Elph [Mass/Vol] 1.548745016914 g/dL [facility] Comment on above: Referene: 0.7-1.3 Serum or plasma calcium reese urement (mass/volume)Ordered By: Brook Huddleston on 06-13-2022 Calcium [Mass/Vol] 9.2 mg/dL 8.2-10.2 [facility] Serum or plasma chloride gurdeep surement (moles/volume)Ordered By: Brook Huddleston on 06-13-2022 Chloride [Moles/Vol] 101 mmol/L 95-114 [facility] Serum or plasma gamma globul in measurement by electrophoresis (mass/volume)Ordered By: Brook Huddleston on 06-13-2022 Gamma globulin Elph [Mass/Vol] 1.174888586487 g/dL [facility] Comment on above: Reference: 0.4-1.8 Serum or plasma glucose reese urement (mass/volume)Ordered By: Brook Huddleston on 06-13-2022 Glucose [Mass/Vol] 176 mg/dL 70-100 [facility] Comment on above: ADA recommended refe rence rangeRandom Glucose Reference Range is dependent on time and content of last meal. Glucose of more than 200 mg/dL in a nonstressed, ambulatory subject supports the diagnosis of Diabetes Mellitus. Serum or plasma potassium me asurement (moles/volume)Ordered By: Brook Huddleston on 06-13-2022 Potassium [Moles/Vol] 4.9 mmol/L 3.5-5.1 [facility] Serum or plasma sodium measu rement (moles/volume)Ordered By: Brook Huddleston on 06-13-2022 Sodium [Moles/Vol] 133 mmol/L 136-146 [facility] Serum or plasma total biliru bin measurement (mass/volume)Ordered By: Brook Huddleston on 06-13-2022 Bilirubin [Mass/Vol] 0.6 mg/dL 0.3-1.2 [facility] Serum or plasma total carbon dioxide measurement (moles/volume)Ordered By: Brook Huddleston on 06-13-2022 CO2 [Moles/Vol] 19.9 mmol/L 22.0-30.0 [facility] Serum or plasma urea nitroge n measurement (mass/volume)Ordered By: Brook Huddleston on 06-13-2022 Urea nitrogen [Mass/Vol] 32 mg/dL 9-23 [facility] Urine alpha 1 globulin/total protein by electrophoresisOrdered By: Brook Huddleston on 06-13-2022 Alpha 1 globulin Elph (U) [Mass fraction] 5.5 % . [facility] Urine alpha 2 globulin/total protein ratio by electrophoresisOrdered By: Brook Huddleston on 06-13-2022 Alpha 2 globulin Elph (U) [Mass fraction] 11.8 % . [facility] Urine beta globulin measurem ent by electrophoresis (mass/volume)Ordered By: Brook Huddleston on 06-13-2022 Beta globulin Elph (U) [Mass/Vol] 19.2 % . [facility] WBC Auto (Bld) [#/Vol]Ordere d By: Brook Huddleston on 06-13-2022 WBC (Bld) [#/Vol] 5.0 10*3/uL 4.1-10.5 [facility] Activated partial thrombopla stin time (aPTT) in platelet poor plasma by coagulation aOrdered By: Brook Huddleston on 04-30-2022 aPTT Coag (PPP) [Time] 30.1 s 25.1-36.5 [facility] Albumin [Mass/volume] in Ser um or PlasmaOrdered By: Brook Huddleston on 04-30-2022 Albumin [Mass/Vol] 3.5 g/dL 3.2-5.5 [facility] Albumin [Mass/Vol] 3.7 g/dL 2.9-4.4 [facility] Albumin/Protein.total in 24 hour Urine by ElectrophoresisOrdered By: Brook Huddleston on 04-30-2022 Albumin Elph (24H U) [Mass fraction] 36.8 % . [facility] Basophils Auto (Bld) [#/Vol] Ordered By: Brook Huddleston on 04-30-2022 Basophils (Bld) [#/Vol] 0.0 10*3/uL 0.0-0.2 [facility] Basophils/100 WBC Auto (Bld) Ordered By: Brook Huddleston on 04-30-2022 Basophils/100 WBC (Bld) 0.8 % . [facility] Blood anisocytosis detection Ordered By: Brook Huddleston on 04-30-2022 Anisocytosis Ql (Bld) Slight [facility] Blood hemoglobin measurement (mass/volume)Ordered By: Brook Huddleston on 04-30-2022 Hemoglobin (Bld) [Mass/Vol] 10.7 g/dL 13.0-17.0 [facility] Blood leukocytes automated c ount (number/volume)Ordered By: Brook Huddleston on 04-30-2022 WBC (Bld) [#/Vol] 3.4 10*3/uL 4.5-11.0 [facility] Blood polychromasia detectio n by light microscopyOrdered By: Brook Huddleston on 04-30-2022 Polychromasia LM Ql (Bld) Slight [facility] Creatinine and Glomerular fi ltration rate.predicted panel (S/P/Bld)Ordered By: Brook Huddleston on 04-30-2022 Creatinine [Mass/Vol] 1.81 mg/dL 0.64-1.27 [facility] Eosinophils Auto (Bld) [#/Vo l]Ordered By: Brook Huddleston on 04-30-2022 Eosinophils (Bld) [#/Vol] 0.3 10*3/uL 0.0-0.45 [facility] Eosinophils/100 WBC Auto (Bl d)Ordered By: Brook Huddleston on 04-30-2022 Eosinophils/100 WBC (Bld) 9.9 % . [facility] Erythrocyte distribution wid th Auto (RBC) [Ratio]Ordered By: Brook Huddleston on 04-30-2022 Erythrocyte distribution width (RBC) [Ratio] 16.8 % 12.0-14.8 [facility] Estimated glomerular filtrat ion rate (GFR) non- AmericanOrdered By: Brook Huddleston on 04-30-2022 GFR/1.73 sq M.predicted among non-blacks MDRD (S/P/Bld) [Vol rate/Area] 37 mL/Min [facility] Gamma globulin/Protein.total in 24 hour Urine by ElectrophoresisOrdered By: Brook Huddleston on 04-30-2022 Gamma globulin Elph (24H U) [Mass fraction] 23.7 % . [facility] Hematocrit Auto (Bld) [Volum e fraction]Ordered By: Brook Huddleston on 04-30-2022 Hematocrit (Bld) [Volume fraction] 31.6 % 38.8-50.0 [facility] IgA [Mass/volume] in Serum o r PlasmaOrdered By: Brook Huddleston on 04-30-2022 IgA [Mass/Vol] 190 mg/dL 61-437 [facility] IgG [Mass/volume] in Serum o r PlasmaOrdered By: Brook Huddleston on 04-30-2022 IgG [Mass/Vol] 912 mg/dL 603-1613 [facility] IgM [Mass/volume] in Serum o r PlasmaOrdered By: Brook Huddleston on 04-30-2022 IgM [Mass/Vol] 29 mg/dL 15-143 [facility] Comment on above: Performed at: [facility] [address] [place], [place] [id number] Director: Melchor Agrawal PhD, Phone: [phone] Immunofixation for UrineOrde red By: Brook Huddleston on 04-30-2022 Interpretation Immunofixation (U) [Interp] See comment . [facility] Comment on above: No monoclonality det ected.Performed at: [facility] [id number] Director: Melchor Agrawal PhD, Phone: [phone] Immunoglobulin light chains. kappa.free [Mass/volume] in SerumOrdered By: Brook Huddleston on 04-30-2022 Immunoglobulin light chains.kappa.free (S) [Mass/Vol] 45.5 mg/L 3.3-19.4 [facility] Immunoglobulin light chains. kappa.free/Immunoglobulin light chains.lambda.free [MassOrdered By: Brook Huddleston on 04-30-2022 Immunoglobulin light chains.kappa.free/Immun oglobulin light chains.lambda.free (S) [Mass ratio] 1.63 0.26-1.65 [facility] Comment on above: Performed at: [facility] [address] [id number] Director: Melchro Agrawal PhD, Phone: [phone] Immunoglobulin light chains. lambda.free [Mass/volume] in Serum or PlasmaOrdered By: Brook Huddleston on 04-30-2022 Immunoglobulin light chains.lambda.free [Mass/Vol] 27.9 mg/L 5.7-26.3 [facility] Laboratory - CoagulationOrde red By: Brook Huddleston on 04-30-2022 PT Coag (PPP) [Time] 11.6 s 9.0-12.9 [facility] Laboratory - Hematology and Cell countsOrdered By: Brook Huddleston on 04-30-2022 Nucleated RBC/100 WBC (Bld) [Ratio] 0.1 % 0-0.5 [facility] Lactate dehydrogenase measur ement (enzymatic activity/volume)Ordered By: Brook Huddleston on 04-30-2022 LDH (Unsp spec) [Catalytic activity/Vol] 240 U/L 45-190 [facility] Lymphocytes Auto (Bld) [#/Vo l]Ordered By: Brook Huddleston on 04-30-2022 Lymphocytes (Bld) [#/Vol] 0.8 10*3/uL 1.00-4.8 [facility] Lymphocytes/100 WBC Auto (Bl d)Ordered By: Brook Huddleston on 04-30-2022 Lymphocytes/100 WBC (Bld) 24.5 % . [facility] MCH Auto (RBC) [Entitic mass ]Ordered By: Brook Huddleston on 04-30-2022 MCH (RBC) [Entitic mass] 38.2 pg 27.5-35.2 [facility] MCHC Auto (RBC) [Mass/Vol]Or dered By: Brook Huddleston on 04-30-2022 MCHC (RBC) [Mass/Vol] 33.8 g/dL 32.5-35.6 [facility] MCV Auto (RBC) [Entitic vol] Ordered By: Brook Huddleston on 04-30-2022 MCV (RBC) [Entitic vol] 113.0 fL 83.5-101 [facility] Macrocytes detectionOrdered By: Brook Huddleston on 04-30-2022 Macrocytes Ql (Bld) Moderate [facility] Monocytes Auto (Bld) [#/Vol] Ordered By: Brook Huddleston on 04-30-2022 Monocytes (Bld) [#/Vol] 0.3 10*3/uL 0.0-0.8 [facility] Monocytes/100 WBC Auto (Bld) Ordered By: Brook Huddleston on 04-30-2022 Monocytes/100 WBC (Bld) 9.0 % . [facility] Neutrophils Auto (Bld) [#/Vo l]Ordered By: Brook Huddleston on 04-30-2022 Neutrophils (Bld) [#/Vol] 1.9 10*3/uL 1.8-7.7 [facility] Neutrophils/100 WBC Auto (Bl d)Ordered By: Brook Huddleston on 04-30-2022 Neutrophils/100 WBC (Bld) 55.8 % . [facility] No Panel InformationOrdered By: Brook Huddleston on 04-30-2022 Urine Random Prot Electrophor Note See comment . [facility] Comment on above: Protein electrophore sis scan will follow via computer,mail, or revenue stamp cutter delivery. Estimated GFR () 44 mL/Min [facility] Comment on above: GFR estimated refere nce range: According to KDOQI guidelines, <60 ml/min/1.73m2 is sufficient to diagnose a patient with chronic kidney disease. Pharmacy Creatinine Clearance (Chem 40.70 [facility] Platelet Estimate Decreased Normal [facility] Platelet Morphology Comment Normal Normal [facility] Protein Electrophoresis M-Anselmo Not observed g/dL Not Observed [facility] Protein Electrophoresis Note See comment . [facility] Comment on above: Protein electrophore sis scan will follow via computer,mail, or revenue stamp cutter delivery. Serum Immunofixation See comment . [facility] Comment on above: No monoclonality det ected. Platelet mean volume Auto (B ld) [Entitic vol]Ordered By: Brook Huddleston on 04-30-2022 Platelet mean volume (Bld) [Entitic vol] 8.8 fL 6.6-10.1 [facility] Platelet poor plasma interna tional normalized ratio (INR) by coagulation assay (relatOrdered By: Brook Huddleston on 04-30-2022 INR Coag (PPP) [Relative time] 1.0 {INR} [facility] Comment on above: INR Therapeutic Rang e [...] 04-30-2022 Platelets (Bld) [#/Vol] 119 10*3/uL 150-450 [facility] Protein [Mass/volume] in Ser um or PlasmaOrdered By: Brook Huddleston on 04-30-2022 Protein [Mass/Vol] 6.2 g/dL 6.1-7.9 [facility] Protein [Mass/Vol] 6.4 g/dL 6.0-8.5 [facility] Protein [Mass/volume] in Uri neOrdered By: Brook Huddleston on 04-30-2022 Protein (U) [Mass/Vol] 12.1 mg/dL Not Estab. Fi [facility] Protein.monoclonal/Protein.t otal in 24 hour Urine by ElectrophoresisOrdered By: Brook Huddleston on 04-30-2022 Protein.monoclonal Elph (24H U) [Mass fraction] Not observed % Not Observed [facility] RBC Auto (Bld) [#/Vol]Ordere d By: Brook Huddleston on 04-30-2022 RBC (Bld) [#/Vol] 2.80 10*6/uL 3.90-5.60 [facility] RBC morphologyOrdered By: Am safia Huddleston on 04-30-2022 RBC morphology finding Nom (Bld) N/A [facility] Serum globulin measurement b y calculation (mass/volume)Ordered By: Brook Huddleston on 04-30-2022 Globulin (S) [Mass/Vol] 2.7 g/dL 2.2-3.9 [facility] Serum or plasma alanine etienne otransferase measurement without P-5'-P (enzymatic activiOrdered By: Brook Huddleston on 04-30-2022 ALT No additional P-5'-P [Catalytic activity/Vol] 29 U/L 10-60 [facility] Serum or plasma albumin/glob ulin mass ratioOrdered By: Brook Huddleston on 04-30-2022 Albumin/Globulin [Mass ratio] 1.3 {ratio} [facility] Albumin/Globulin [Mass ratio] 1.4 {ratio} 0.7-1.7 [facility] Serum or plasma alkaline tammy sphatase measurement (enzymatic activity/volume)Ordered By: Brook Huddleston on 04-30-2022 ALP [Catalytic activity/Vol] 80 U/L 32-92 [facility] Serum or plasma alpha 1 glob ulin measurement by electrophoresis (mass/volume)Ordered By: Brook Huddleston on 04-30-2022 Alpha 1 globulin Elph [Mass/Vol] 0.2 g/dL 0.0-0.4 [facility] Serum or plasma alpha 2 glob ulin measurement by electrophoresis (mass/volume)Ordered By: Brook Huddleston on 04-30-2022 Alpha 2 globulin Elph [Mass/Vol] 0.7 g/dL 0.4-1.0 [facility] Serum or plasma anion gap de terminationOrdered By: Brook Huddleston on 04-30-2022 Anion gap [Moles/Vol] 14.9 mmol/L 6.0-15.0 [facility] Serum or plasma aspartate am inotransferase measurement (enzymatic activity/volume)Ordered By: Brook Huddleston on 04-30-2022 AST [Catalytic activity/Vol] 39 U/L 10-42 [facility] Serum or plasma beta globuli n measurement by electrophoresis (mass/volume)Ordered By: Brook Huddleston on 04-30-2022 Beta globulin Elph [Mass/Vol] 1.0 g/dL 0.7-1.3 [facility] Serum or plasma calcium reese urement (mass/volume)Ordered By: Brook Huddleston on 04-30-2022 Calcium [Mass/Vol] 9.5 mg/dL 8.2-10.2 [facility] Serum or plasma chloride gurdeep surement (moles/volume)Ordered By: Brook Huddleston on 04-30-2022 Chloride [Moles/Vol] 102 mmol/L 95-114 [facility] Serum or plasma gamma globul in measurement by electrophoresis (mass/volume)Ordered By: Brook Huddleston on 04-30-2022 Gamma globulin Elph [Mass/Vol] 0.8 g/dL 0.4-1.8 [facility] Serum or plasma glucose reese urement (mass/volume)Ordered By: Brook Huddleston on 04-30-2022 Glucose [Mass/Vol] 262 mg/dL 70-100 [facility] Comment on above: ADA recommended refe rence [...] on 04-30-2022 Potassium [Moles/Vol] 4.3 mmol/L 3.5-5.1 [facility] Serum or plasma sodium measu rement (moles/volume)Ordered By: Brook Huddleston on 04-30-2022 Sodium [Moles/Vol] 135 mmol/L 136-146 [facility] Serum or plasma total biliru bin measurement (mass/volume)Ordered By: Brook Huddleston on 04-30-2022 Bilirubin [Mass/Vol] 0.8 mg/dL 0.3-1.2 [facility] Serum or plasma total carbon dioxide measurement (moles/volume)Ordered By: Brook Huddleston on 04-30-2022 CO2 [Moles/Vol] 22.4 mmol/L 22.0-30.0 [facility] Serum or plasma urea nitroge n measurement (mass/volume)Ordered By: Brook Huddleston on 04-30-2022 Urea nitrogen [Mass/Vol] 18 mg/dL 9 [facility] Teardrop cell detectionOrder ed By: Brook Huddleston on 04-30-2022 Dacrocytes LM Ql (Bld) [facility]light [facility] Urine alpha 1 globulin/total protein by electrophoresisOrdered By: Brook Huddleston on 04-30-2022 Alpha 1 globulin Elph (U) [Mass fraction] 2.3 % . [facility] Urine alpha 2 globulin/total protein ratio by electrophoresisOrdered By: Brook Huddleston on 04-30-2022 Alpha 2 globulin Elph (U) [Mass fraction] 10.3 % . [facility] Urine beta globulin measurem ent by electrophoresis (mass/volume)Ordered By: Brook Huddleston on 04-30-2022 Beta globulin Elph (U) [Mass/Vol] 27.0 % . [facility] Urine culture routineOrdered By: Price Crain on 04-25-2022 Bacteria identified Cx Nom (U) No Growth 2 Days [facility] Automated erythrocytes count in urine sediment (number/area)Ordered By: Price Crain on 04-23-2022 RBC Auto (Urine sed) [#/Area] Innumerable [HPF] 0-4 [facility] Automated leukocytes count i n urine sediment (number/area)Ordered By: Price Crain on 04-23-2022 WBC Auto (Urine sed) [#/Area] Innumerable [HPF] 0-4 [facility] Bilirubin Test strip Ql (U)O rdered By: Price Crain on 04-23-2022 Bilirubin Ql (U) Negative Negative [facility] Body fluid albumin measureme nt (mass/volume)Ordered By: Price Crain on 04-23-2022 Albumin (Body fld) [Mass/Vol] 3.5 g/dL 3.2-5.5 [facility] Color Auto (U)Ordered By: Ivan Crain on 04-23-2022 Color (U) Yellow Yellow [facility] Creatinine [Mass/volume] in UrineOrdered By: Price Crain on 04-23-2022 Creatinine (U) [Mass/Vol] 120.5 mg/dL [facility] Comment on above: No reference range e stablished Creatinine and Glomerular fi ltration rate.predicted panel (S/P/Bld)Ordered By: Price Crain on 04-23-2022 Creatinine [Mass/Vol] 1.42 mg/dL 0.64-1.27 [facility] Estimated glomerular filtrat ion rate (GFR) non- AmericanOrdered By: Price Crain on 04-23-2022 GFR/1.73 sq M.predicted among non-blacks MDRD (S/P/Bld) [Vol rate/Area] 48 mL/Min [facility] Globulin Calc (S) [Mass/Vol] Ordered By: Price Crain on 04-23-2022 Globulin (S) [Mass/Vol] 2.5 g/dL [facility] Ketones Auto test strip (U) [Mass/Vol]Ordered By: Price Crain on 04-23-2022 Ketones (U) [Mass/Vol] Negative Negative [facility] - UrinalysisOrder ed By: Price Crain on 04-23-2022 Hyaline casts LM Ql (Urine sed) None seen [LPF] 0-8 [facility] Nitrite Test strip Ql (U)Ord ered By: Price Crain on 04-23-2022 Nitrite Ql (U) Negative Negative [facility] No Panel InformationOrdered By: Price Crain on 04-23-2022 25-Hydroxy Vitamin D Total 43.1 ng/mL 30-100 [facility] Comment on above: VITAMIN D STATUS 25( [place])VITAMIN D RANGE (ng/mL) Deficient <20 Insufficient 20 to <30 Sufficient 30 to 100 Reference: Dieudonne ABEL,Brendon GUERRA, Estrella CARTER, et al. Evaluation,treatment, and prevention of vitamin D deficiency; an Endocrine Society clinical practice guideline. JCEM. 2010; 96(7):1911-30. VITAMIN D STATUS 25( [place])VITAMIN D RANGE (ng/mL) Deficient <20 Insufficient 20 to <30Sufficient 30 to 100Reference: Dieudonne ABEL,Brendon GUERRA, Estrella CARTER, et al. Evaluation,treatment, and prevention of vitamin D deficiency; an Endocrine Society clinical practice guideline. JCEM. 2010; 96(7):1911-30. Estimated GFR () 58 mL/Min [facility] Comment on above: GFR estimated refere nce range: According to KDOQI guidelines, <60 ml/min/1.73m2 is sufficient to diagnose a patient with chronic kidney disease. Pharmacy Creatinine Clearance (Chem N/A [facility] Protein Auto test strip (U) [Mass/Vol]Ordered By: Price Crain on 04-23-2022 Protein (U) [Mass/Vol] 30 mg/dL Negative [facility] Protein [Mass/volume] in Ser um or PlasmaOrdered By: Price Crain on 04-23-2022 Protein [Mass/Vol] 6.0 g/dL 6.1-7.9 [facility] Protein [Mass/volume] in Uri neOrdered By: Price Crain on 04-23-2022 Protein (U) [Mass/Vol] 34 mg/dL 0-9 [facility] Serum cryoglobulin detection Ordered By: Price Crain on 04-23-2022 Cryoglobulin Ql (S) See comment None detected [facility] Comment on above: None Detected at 72 hours This test was developed and its performance characteristics determined by [employer]. It has not been cleared or approved by the Food and Drug Administration. Performed at: [address] [id number] Orthotic[facility]Prosthetic Practitioner: Melchor Agrawal PhD, Phone: [phone] None Detected at 72 hoursThis test was developed and its performance characteristicsdetermined by [employer]. It has not been cleared orapproved by the Food and Drug Administration.Performed at: [address] [id number] Director: Melchor Agrawal PhD, Phone: [phone] Serum or plasma alanine etienne otransferase measurement without P-5'-P (enzymatic activiOrdered By: Price Crain on 04-23-2022 ALT No additional P-5'-P [Catalytic activity/Vol] 23 U/L 10-60 [facility] Serum or plasma albumin/glob ulin mass ratioOrdered By: Price Crain on 04-23-2022 Albumin/Globulin [Mass ratio] 1.4 {ratio} [facility] Serum or plasma alkaline tammy sphatase measurement (enzymatic activity/volume)Ordered By: Price Crain on 04-23-2022 ALP [Catalytic activity/Vol] 83 U/L 32-92 [facility] Serum or plasma anion gap de terminationOrdered By: Price Crain on 04-23-2022 Anion gap [Moles/Vol] 11.2 mmol/L 6.0-15.0 [facility] Serum or plasma aspartate am inotransferase measurement (enzymatic activity/volume)Ordered By: Price Crain on 04-23-2022 AST [Catalytic activity/Vol] 19 U/L 10-42 [facility] Serum or plasma calcium reese urement (mass/volume)Ordered By: Price Crain on 04-23-2022 Calcium [Mass/Vol] 8.9 mg/dL 8.2-10.2 [facility] Serum or plasma chloride gurdeep surement (moles/volume)Ordered By: Price Crain on 04-23-2022 Chloride [Moles/Vol] 105 mmol/L 95-114 [facility] Serum or plasma glucose reese urement (mass/volume)Ordered By: Price Crain on 04-23-2022 Glucose [Mass/Vol] 188 mg/dL 70-100 [facility] Comment on above: ADA recommended refe rence [...] Crain on 04-23-2022 Parathyrin.intact [Mass/Vol] 44.8 pg/mL 12-88 [facility] Serum or plasma potassium me asurement (moles/volume)Ordered By: Price Crain on 04-23-2022 Potassium [Moles/Vol] 4.1 mmol/L 3.5-5.1 [facility] Serum or plasma sodium measu rement (moles/volume)Ordered By: Price Crain on 04-23-2022 Sodium [Moles/Vol] 136 mmol/L 136-146 [facility] Serum or plasma total biliru bin measurement (mass/volume)Ordered By: Price Crain on 04-23-2022 Bilirubin [Mass/Vol] 0.6 mg/dL 0.3-1.2 [facility] Serum or plasma total carbon dioxide measurement (moles/volume)Ordered By: Price Crain on 04-23-2022 CO2 [Moles/Vol] 23.9 mmol/L 22.0-30.0 [facility] Serum or plasma urea nitroge n measurement (mass/volume)Ordered By: Price Crain on 04-23-2022 Urea nitrogen [Mass/Vol] 17 mg/dL 9-23 [facility] Serum or plasma uric acid me asurement (mass/volume)Ordered By: Price Crain on 04-23-2022 Urate [Mass/Vol] 4.7 mg/dL 2.6-7.2 [facility] Specific gravity Auto test s trip (U) [Rel density]Ordered By: Price Crain on 04-23-2022 Specific gravity (U) [Rel density] 1.019 1.001-1.03 0 [facility] Squamous epithelial cells de tection in urine sediment by light microscopyOrdered By: Price Crain on 04-23-2022 Epithelial cells.squamous LM Ql (Urine sed) None seen [HPF] 0-2 [facility] Urine bacteria detection by automated methodOrdered By: Price Crain on 04-23-2022 Bacteria Auto Ql (U) None seen None Seen [facility] Urine clarity by refractomet ry automatedOrdered By: Price Crain on 04-23-2022 Clarity Refractometry automated (U) Cloudy Clear [facility] Urine glucose measurement by automated test strip (mass/volume)Ordered By: Price Crain on 04-23-2022 Glucose Auto test strip (U) [Mass/Vol] 500 mg/dL Normal [facility] Urine hemoglobin detection b y automated test stripOrdered By: Price Crain on 04-23-2022 Hemoglobin Auto test strip Ql (U) 3+ Negative [facility] Urine leukocyte esterase det ection by automated test stripOrdered By: Price Crain on 04-23-2022 Leukocyte esterase Auto test strip Ql (U) 3+ Negative [facility] Urine protein/creatinine rat ioOrdered By: Price Crain on 04-23-2022 Protein/Creatinine (U) [Ratio] 282 mg/g{Cre} 0-200 [facility] Urobilinogen Auto test strip (U) [Mass/Vol]Ordered By: Price Crain on 04-23-2022 Urobilinogen (U) [Mass/Vol] Normal mg/dL Normal [facility] pH Auto test strip (U)Ordere d By: Price Crain on 04-23-2022 pH (U) 5.5 [pH] 5.0-9.0 [facility] URINALYSISOrdered By: Jason moore on 04-18-2022 Bilirubin Ql (U) Negative (04/18/22 2:19 PM) Normal Negative [facility] UA Auto SS Clarity (U) SL CLOUDY Invalid Interpretation Code [facility] UA Auto SS Color (U) STRAW Invalid Interpretation Code [facility] UA Auto SS Epithelial cells.squamous LM.HPF (Urine sed) [#/Area] 0-2 /HPF Normal 0-2/HPF [facility] UA Auto SS Glucose Test strip (U) [Mass/Vol] 3+ *ABN* (04/18/22 2:19 PM) Invalid Interpretation Code Negative [facility] UA Auto SS Hemoglobin Ql (U) 1+ *ABN* (04/18/22 2:19 PM) Invalid Interpretation Code Negative [facility] UA Auto SS Ketones (U) [Mass/Vol] Negative (04/18/22 2:19 PM) Normal Negative [facility] UA Auto SS Monserrate.plasma/Monserrate. RBC (Bld) [Mass ratio] 0-3 /HPF Normal 0-3/HPF [facility] UA Auto SS Nitrite Ql (U) Negative (04/18/22 2:19 PM) Normal Negative [facility] UA Auto SS pH (U) 6.5 *NA* (04/18/22 2:19 PM) Invalid Interpretation Code 5.0 - 9.0 [facility] UA Auto SS Protein (U) [Mass/Vol] Negative (04/18/22 2:19 PM) Normal Negative [facility] UA Auto SS Specific gravity (U) [Rel density] 1.015 *NA* (04/18/22 2:19 PM) Invalid Interpretation Code 1.005 - 1.030 [facility] UA Auto SS UA Spec Desc Clean Catch (04/18/22 2:19 PM) Normal [facility] UA Auto SS Urobilinogen Qn (U) [id number] {Caroline'U}/dL Normal 0.0 - 1.0 EU/dL [facility] UA Auto SS WBC Auto Ql (U) Trace *ABN* (04/18/22 2:19 PM) Invalid Interpretation Code Negative [facility] UA Auto SS WBC LM.HPF (Urine sed) [#/Area] 6-15 /HPF Invalid Interpretation Code 0-5/HPF [facility] [place] Urine culture routineOrdered By: Helen Heath on 03-26-2022 Bacteria identified Cx Nom (U) No Growth 2 Days [facility] Basophils Auto (Bld) [#/Vol] Ordered By: Brook Huddleston on 03-20-2022 Basophils (Bld) [#/Vol] 0.0 10*3/uL 0.0-0.2 [facility] Basophils/100 WBC Auto (Bld) Ordered By: Brook Huddleston on 03-20-2022 Basophils/100 WBC (Bld) 0.8 % . [facility] Blood anisocytosis detection Ordered By: Brook Huddleston on 03-20-2022 Anisocytosis Ql (Bld) Marked [facility] Blood hemoglobin measurement (mass/volume)Ordered By: Brook Huddleston on 03-20-2022 Hemoglobin (Bld) [Mass/Vol] 8.8 g/dL 13.0-17.0 [facility] Blood leukocytes automated c ount (number/volume)Ordered By: Brook Huddleston on 03-20-2022 WBC (Bld) [#/Vol] 3.6 10*3/uL 4.5-11.0 [facility] Eosinophils Auto (Bld) [#/Vo l]Ordered By: Brook Huddleston on 03-20-2022 Eosinophils (Bld) [#/Vol] 0.4 10*3/uL 0.0-0.45 [facility] Eosinophils/100 WBC Auto (Bl d)Ordered By: Brook Huddleston on 03-20-2022 Eosinophils/100 WBC (Bld) 11.5 % . [facility] Erythrocyte distribution wid th Auto (RBC) [Ratio]Ordered By: Brook Huddleston on 03-20-2022 Erythrocyte distribution width (RBC) [Ratio] 24.1 % 12.0-14.8 [facility] Hematocrit Auto (Bld) [Volum e fraction]Ordered By: Brook Huddleston on 03-20-2022 Hematocrit (Bld) [Volume fraction] 26.0 % 38.8-50.0 [facility] Laboratory - Hematology and Cell countsOrdered By: Brook Huddleston on 03-20-2022 Nucleated RBC/100 WBC (Bld) [Ratio] 0.0 % 0-0.5 [facility] Lymphocytes Auto (Bld) [#/Vo l]Ordered By: Brook Huddleston on 03-20-2022 Lymphocytes (Bld) [#/Vol] 0.7 10*3/uL 1.00-4.8 [facility] Lymphocytes/100 WBC Auto (Bl d)Ordered By: Brook Huddleston on 03-20-2022 Lymphocytes/100 WBC (Bld) 19.8 % . [facility] MCH Auto (RBC) [Entitic mass ]Ordered By: Brook Huddleston on 03-20-2022 MCH (RBC) [Entitic mass] 37.9 pg 27.5-35.2 [facility] MCHC Auto (RBC) [Mass/Vol]Or dered By: Brook Huddleston on 03-20-2022 MCHC (RBC) [Mass/Vol] 33.9 g/dL 32.5-35.6 [facility] MCV Auto (RBC) [Entitic vol] Ordered By: Brook Huddleston on 03-20-2022 MCV (RBC) [Entitic vol] 111.8 fL 83.5-101 [facility] Macrocytes detectionOrdered By: Brook Huddleston on 03-20-2022 Macrocytes Ql (Bld) Moderate [facility] Monocytes Auto (Bld) [#/Vol] Ordered By: Brook Huddleston on 03-20-2022 Monocytes (Bld) [#/Vol] 0.3 10*3/uL 0.0-0.8 [facility] Monocytes/100 WBC Auto (Bld) Ordered By: Brook Huddleston on 03-20-2022 Monocytes/100 WBC (Bld) 9.2 % . F [facility] Neutrophils Auto (Bld) [#/Vo l]Ordered By: Brook Huddleston on 03-20-2022 Neutrophils (Bld) [#/Vol] 2.1 10*3/uL 1.8-7.7 [facility] Neutrophils/100 WBC Auto (Bl d)Ordered By: Brook Huddleston on 03-20-2022 Neutrophils/100 WBC (Bld) 58.7 % . [facility] No Panel InformationOrdered By: Brook Huddleston on 03-20-2022 Platelet Estimate Decreased Normal [facility] Platelet Morphology Comment Normal Normal [facility] Poikilocytosis Slight [facility] Schistocytes Rare [facility] Ovalocyte detectionOrdered B y: Brook Huddleston on 03-20-2022 Ovalocytes LM Ql (Bld) [facility] Platelet mean volume Auto (B ld) [Entitic vol]Ordered By: Brook Huddleston on 03-20-2022 Platelet mean volume (Bld) [Entitic vol] 9.0 fL 6.6-10.1 [facility] Platelets Auto (Bld) [#/Vol] Ordered By: Brook Huddleston on 03-20-2022 Platelets (Bld) [#/Vol] 98 10*3/uL 150-450 F [facility] RBC Auto (Bld) [#/Vol]Ordere d By: Brook Huddleston on 03-20-2022 RBC (Bld) [#/Vol] 2.32 10*6/uL 3.90-5.60 [facility] RBC morphologyOrdered By: Black Huddleston on 03-20-2022 RBC morphology finding Nom (Bld) N/A [facility] Hypochromia detectionOrdered By: Brook Huddleston on 03-03-2022 Hypochromia Ql (Bld) Slight [facility] Hypochromia Ql (Bld) Hypochromia detection [facility] Blood polychromasia detectio n by light microscopyOrdered By: Rosie Chew on 01-23-2022 Polychromasia LM Ql (Bld) Slight [facility] POINT OF CARE GLUCOSEon 12-17 Glucose [Mass/Vol] 190 mg/dL Critically high 74-106 T [facility] Comment on above: Performed By: #### P OCGLUC #### [facility] [address] [address] [address] Lydia Merritt XR KUB 1 VIEWon [...] by: CHAD BURNETTE Date: 2022-01-14 11:58 Normal [facility] CBC AUTO DIFFon 01-09-2022 BASO # 0.0 103/ul Normal 0.0-0.1 [facility] Comment on above: Performed By: #### P TT, PT #### [facility] [address] [place] [address] Dr. Lydia Merritt Basophils/100 WBC (Bld) 0.3 % Normal 0.2-2.0 [facility] Comment on above: Performed By: #### P TT, PT #### [facility] [address] [place] [address] Dr. Lydia Merritt EO # 0.3 103/ul Normal 0.0-0.7 [facility] Comment on above: Performed By: #### P TT, PT #### [facility] [address] [place] [address] Dr. Lydia Merritt Eosinophils/100 WBC (Bld) 8.6 % Critically high 0.9-7.0 [facility] Comment on above: Performed By: #### P TT, PT #### [facility] [address] [place] [address] Dr. Lydia Merritt Erythrocyte distribution width (RBC) [Ratio] 18.3 % Critically high 11.0-15.0 [facility] Comment on above: Performed By: #### P TT, PT #### [facility] [address] [place] [address] Dr. Lydia Merritt Hematocrit (Bld) [Volume fraction] 22.1 % Critically low 42.0-54.0 [facility] Comment on above: Result Comment: test repeated critical value verified Performed By: #### P TT, PT #### [facility] [address] [place] [address] Dr. Lydia Merritt Hemoglobin (Bld) [Mass/Vol] 7.4 g/dL Critically low 14.0-18.0 [facility] Comment on above: Performed By: #### P TT, PT #### [facility] [address] [place] [address] Dr. Lydia Merritt IG # 0.02 10e3/ul Normal 0.00-0.03 [facility] Comment on above: Performed By: #### P TT, PT #### [facility] [address] [place] [address] Dr. Lydia Merritt IG % 0.5 % Normal 0.0-0.5 [facility] Comment on above: Performed By: #### P TT, PT #### [facility] [address] [place] [address] Dr. Lydia Merritt LYMPH # 0.8 103/ul Critically low 1.2-3.8 [facility] Comment on above: Performed By: #### P TT, PT #### [facility] [address] [place] [address] Dr. Lydia Merritt Lymphocytes/100 WBC (Bld) 21.2 % Normal 20.5-60.0 [facility] Comment on above: Performed By: #### P TT, PT #### [facility] [address] [place] [address] Dr. Lydia Merritt MANUAL DIFF REQ NO Normal [facility] Comment on above: Performed By: #### P TT, PT #### [facility] [address] [place] [address] Dr. Lydia Merritt MCH (RBC) [Entitic mass] 37.2 pg Critically high 25.9-34.0 [facility] Comment on above: Performed By: #### P TT, PT #### [facility] [address] [place] [address] Dr. Lydia Merritt MCHC (RBC) [Mass/Vol] 33.5 g/dL Normal 29.9-35.2 [facility] Comment on above: Performed By: #### P TT, PT #### [facility] [address] [place] [address] Dr. Lydia Merritt MCV (RBC) [Entitic vol] 111.1 fL Critically high 80.0-94 .0 [facility] Comment on above: Performed By: #### P TT, PT #### [facility] [address] [place] [address] Dr. Lydia Merritt MONO # 0.2 103/ul Critically low 0.3-0.8 [facility] Comment on above: Performed By: #### P TT, PT #### [facility] [address] [place] [address] Dr. Lydia Merritt Monocytes/100 WBC (Bld) 6.5 % Normal 1.7-12.0 [facility] Comment on above: Performed By: #### P TT, PT #### [facility] [address] [place] [address] Dr. Lydia Merritt NEUT # 2.3 103/ul Normal 1.4-6.5 [facility] Comment on above: Performed By: #### P TT, PT #### [facility] [address] [place] [address] Dr. Lydia Merritt Neutrophils/100 WBC (Bld) 62.9 % Normal 43.0-75.0 [facility] Comment on above: Performed By: #### P TT, PT #### [facility] [address] [place] [address] Dr. Lydia Merritt Platelet mean volume (Bld) [Entitic vol] 11.1 fL Normal 9.5-13.5 [facility] Comment on above: Performed By: #### P TT, PT #### [facility] [address] [place] [address] Dr. Lydia Merritt PLT 89 103/ul Critically low 150-450 [facility] Comment on above: Performed By: #### P TT, PT #### [facility] [address] [place] [address] Dr. Lydia Merritt RBC 1.99 106/ul Critically low 4.70-6.10 [facility] Comment on above: Performed By: #### P TT, PT #### [facility] [address] [place] [address] Dr. Lydia Merritt WBC 3.7 103/ul Critically low 4.0-11.0 [facility] Comment on above: Performed By: #### P TT, PT #### [facility] [address] [address] [address] Lydia Merritt PROF CHEM 8 (BAS METB)on Anion gap [Moles/Vol] 12.4 mmol/L Normal Th [facility] Comment on above: Performed By: #### B MP #### [facility] [address] [place] [address] Dr. Lydia Merritt Calcium [Mass/Vol] 9.0 mg/dL Normal 8.5-10.1 [facility] Comment on above: Performed By: #### B MP #### [facility] [address] [place] [address] Dr. Lydia Merritt Chloride [Moles/Vol] 105 mmol/L Normal 98-107 [facility] Comment on above: Performed By: #### B MP #### [facility] [address] [place] [address] Dr. Lydia Merritt CO2 [Moles/Vol] 23.8 mmol/L Normal 21.0-32.0 [facility] Comment on above: Performed By: #### B MP #### [facility] [address] [place] [address] Dr. Lydia Merritt Creatinine [Mass/Vol] 1.41 mg/dL Critically high 0.70-1.30 [facility] Comment on above: Performed By: #### B MP #### [facility] [address] [place] [address] Dr. Lydia Merritt EGFR-AF CAMBODIAN 59 mL/min/1.73m2 Critically low >=60 [facility] Comment on above: Performed By: #### B MP #### [facility] [address] [place] [address] Dr. Lydia Merritt EGFR-NON AF CAMBODIAN 49 mL/min/1.73m2 Critically low >=60 [facility] Comment on above: Performed By: #### B MP #### [facility] [address] [address] [address] Lydia Merritt Glucose [Mass/Vol] 176 mg/dL Critically high 74-106 T [facility] Comment on above: Performed By: #### B MP #### [facility] [address] [address] [address] Lydia Merritt Potassium [Moles/Vol] 4.2 mmol/L Normal 3.5-5.1 [facility] Comment on above: Performed By: #### B MP #### [facility] [address] [address] [address] Lydia Merritt Sodium [Moles/Vol] 137 mmol/L Normal 136-145 [facility] Comment on above: Performed By: #### B MP #### [facility] [address] [place] [address] Dr. Lydia Merritt Urea nitrogen [Mass/Vol] 14.0 mg/dL Normal 7.0-18.0 [facility] Comment on above: Performed By: #### B MP #### [facility] [address] [place] [address] Dr. Lydia Merritt Urea nitrogen/Creatinine [Mass ratio] 9.9 mg/mg Normal [facility] Comment on above: Performed By: #### B MP #### [facility] [address] [place] [address] Dr. Lydia Merritt PROTIMEon 01-09-2022 INR Coag (PPP) [Relative time] 0.97 {INR} Normal [facility] Comment on above: Performed By: #### P TT, PT #### [facility] [address] [place] [address] Dr. Lydia Merritt INR GUIDELINES SEE BELOW Normal [facility] Comment on above: Result Comment: DILLON RED INR: 2.0 - 3.0 CONDITIONS NOT LISTED BELOW 2.5 - 3.5 FOR PROSTHETIC HEART VALVE REPLACEMENT 2.5 - 3.5 RECURRENT THROMBOSIS Performed By: #### P TT, PT #### [facility] [address] [place] [address] Dr. Lydia Merritt PT Coag (PPP) [Time] 10.5 s Normal 9.0-11.6 [facility] Comment on above: Performed By: #### P TT, PT #### [facility] [id number] Lydia Merritt PTTon 01-09-2022 aPTT Coag (Bld) [Time] 29.5 s Normal 22.3-36.2 Th e [facility] Comment on above: Performed By: #### P TT, PT #### [facility] [address] [address] [address] Lydia Merritt Serum or plasma erythropoiet in (EPO) measurement (units/volume)Ordered By: Brook Huddleston on 01-02-2022 Erythropoietin (EPO) Qn 547.7 mIU/mL 2.6-18.5 [facility] Comment on above: [employer] DxI 800 Immunoassay System Values obtained with different assay methods or kits cannot be used interchangeably. Results cannot be interpreted as absolute evidence of the presence or absence of malignant disease. Performed at: [place] [address] Orthotic/Prosthetic Practitioner: Melchor Agrawal PhD, Phone: [phone] [employer] DxI 800 Immunoassay SystemValues obtained with different assay methods or kits cannotbe used interchangeably. Results cannot be interpreted asabsolute evidence of the presence or absence of malignantdisease.Performed at: [facility] [id number] Director: Melchor Agrawal PhD, Phone: [phone] Albumin [Mass/volume] in Ser um or PlasmaOrdered By: Brook Huddleston on 12-26-2021 Albumin [Mass/Vol] 2.9 g/dL 3.2-5.5 [facility] Albumin [Mass/Vol] 2.8 g/dL 2.9-4.4 [facility] Albumin/Protein.total in 24 hour Urine by ElectrophoresisOrdered By: Brook Huddleston on 12-26-2021 Albumin Elph (24H U) [Mass fraction] 35.4 % . [facility] CT biopsyOrdered By: Brook Gomez se on 12-26-2021 Transferrin [Mass/Vol] 101 mg/dL 180-380 [facility] Creatinine and Glomerular fi ltration rate.predicted panel (S/P/Bld)Ordered By: Brook Huddleston on 12-26-2021 Creatinine [Mass/Vol] 1.47 mg/dL 0.64-1.27 [facility] Estimated glomerular filtrat ion rate (GFR) non- AmericanOrdered By: Brook Huddleston on 12-26-2021 GFR/1.73 sq M.predicted among non-blacks MDRD (S/P/Bld) [Vol rate/Area] 47 mL/Min [facility] Ferritin [Mass/volume] in Se rum or PlasmaOrdered By: Brook Huddleston on 12-26-2021 Ferritin [Mass/Vol] 663.4 ng/mL 23.9-336.2 [facility] Gamma globulin/Protein.total in 24 hour Urine by ElectrophoresisOrdered By: Brook Huddleston on 12-26-2021 Gamma globulin Elph (24H U) [Mass fraction] 21.5 % . [facility] Globulin Calc (S) [Mass/Vol] Ordered By: Brook Huddleston on 12-26-2021 Globulin (S) [Mass/Vol] 3.5 g/dL [facility] IgA [Mass/volume] in Serum o r PlasmaOrdered By: Brook Huddleston on 12-26-2021 IgA [Mass/Vol] 250 mg/dL 61-437 [facility] IgG [Mass/volume] in Serum o r PlasmaOrdered By: Brook Huddleston on 12-26-2021 IgG [Mass/Vol] 944 mg/dL 603-1613 [facility] IgM [Mass/volume] in Serum o r PlasmaOrdered By: Brook Huddleston on 12-26-2021 IgM [Mass/Vol] 33 mg/dL 15-143 [facility] Comment on above: Performed at: [facility] [address] [place], [place] [id number] Orthotic/Prosthetic Practitioner: Melchor Agrawal PhD, Phone: [phone] Performed at: [facility] [place], [place] [id number] Director: Melchor Agrawal PhD, Phone: [phone] Immunofixation for UrineOrde red By: Brook Huddleston on 12-26-2021 Interpretation Immunofixation (U) [Interp] See comment . [facility] Comment on above: No monoclonality det ected. Performed at: [facility] [id number] Orthotic/Prosthetic Practitioner: Melchor Agrawal PhD, Phone: [phone] No monoclonality det ected.Performed at: [facility] [address] [id number] Director: Melchor Agrawal PhD, Phone: [phone] Immunoglobulin light chains. kappa.free [Mass/volume] in SerumOrdered By: Brook Huddleston on 12-26-2021 Immunoglobulin light chains.kappa.free (S) [Mass/Vol] 38.9 mg/L 3.3-19.4 [facility] Immunoglobulin light chains. kappa.free/Immunoglobulin light chains.lambda.free [MassOrdered By: Brook Huddleston on 12-26-2021 Immunoglobulin light chains.kappa.free/Immun oglobulin light chains.lambda.free (S) [Mass ratio] 1.31 0.26-1.65 [facility] Comment on above: Performed at: [address] [id number] Orthotic/Prosthetic Practitioner: Melchor Agrawal PhD, Phone: [phone] Performed at: [facility] [address] [id number] Director: Melchor Agrawal PhD, Phone: [phone] Immunoglobulin light chains. lambda.free [Mass/volume] in Serum or PlasmaOrdered By: Brook Huddleston on 12-26-2021 Immunoglobulin light chains.lambda.free [Mass/Vol] 29.7 mg/L 5.7-26.3 [facility] Iron [Mass/volume] in Serum or PlasmaOrdered By: Brook Huddleston on 12-26-2021 Iron [Mass/Vol] 102 ug/dL 40-160 [facility] Iron binding capacity [Mass/ volume] in Serum or PlasmaOrdered By: Brook Huddleston on 12-26-2021 Iron binding capacity [Mass/Vol] 141 ug/dL 255-450 [facility] Iron saturation [Mass Fracti on] in Serum or PlasmaOrdered By: Brook Huddleston on 12-26-2021 Iron saturation [Mass fraction] 72.0 % 20-50 [facility] No Panel InformationOrdered By: Brook Huddleston on 12-26-2021 Estimated GFR () 56 mL/Min [facility] Comment on above: GFR estimated refere nce range: According to KDOQI guidelines, <60 ml/min/1.73m2 is sufficient to diagnose a patient with chronic kidney disease. Pharmacy Creatinine Clearance (Chem 47.88 [facility] Protein Electrophoresis M-Anselmo Not observed g/dL Not Observed [facility] Protein Electrophoresis Note See comment . [facility] Comment on above: Protein electrophore sis scan will follow via computer, mail, or revenue stamp cutter delivery. Performed at: [employer] [facility] [address] [id number] Orthotic/Prosthetic Practitioner: Melchor Agrawal PhD, Phone: [phone] Protein electrophore sis scan will follow via computer,mail, or revenue stamp cutter delivery.Performed at: [employer] [facility] [address] [place] [id number] Director: Melchor Agrawal PhD, Phone: [phone] Serum Immunofixation See comment . [facility] Comment on above: No monoclonality det ected. Urine Random Prot Electrophor Note See comment . [facility] Comment on above: Protein electrophore sis scan will follow via computer, mail, or revenue stamp cutter delivery. Protein electrophore sis scan will follow via computer,mail, or revenue stamp cutter delivery. Protein [Mass/volume] in Ser um or PlasmaOrdered By: Brook Huddleston on 12-26-2021 Protein [Mass/Vol] 6.4 g/dL 6.1-7.9 [facility] Protein [Mass/Vol] 6.0 g/dL 6.0-8.5 [facility] Protein [Mass/volume] in Uri neOrdered By: Brook Huddleston on 12-26-2021 Protein (U) [Mass/Vol] 45.3 mg/dL Not Estab. [facility] Protein.monoclonal/Protein.t otal in 24 hour Urine by ElectrophoresisOrdered By: Brook Huddleston on 12-26-2021 Protein.monoclonal Elph (24H U) [Mass fraction] Comment: % Not Observed [facility] Comment on above: UPE shows asymmetric al gamma. Serum globulin measurement ( mass/volume)Ordered By: Brook Huddleston on 12-26-2021 Globulin (S) [Mass/Vol] 3.2 g/dL 2.2-3.[address] [facility] Serum or plasma alanine etienne otransferase measurement without P-5'-P (enzymatic activiOrdered By: Brook Huddleston on 12-26-2021 ALT No additional P-5'-P [Catalytic activity/Vol] 30 U/L 10-60 [facility] Serum or plasma albumin/glob ulin mass ratioOrdered By: Brook Huddleston on 12-26-2021 Albumin/Globulin [Mass ratio] 0.8 {ratio} [facility] Albumin/Globulin [Mass ratio] 0.9 {ratio} 0.7-1.7 [facility] Serum or plasma alkaline tammy sphatase measurement (enzymatic activity/volume)Ordered By: Brook Huddleston on 12-26-2021 ALP [Catalytic activity/Vol] 112 U/L 32-92 [facility] Serum or plasma alpha 1 glob ulin measurement by electrophoresis (mass/volume)Ordered By: Brook Huddleston on 12-26-2021 Alpha 1 globulin Elph [Mass/Vol] 0.5 g/dL 0.0-0.4 [facility] Serum or plasma alpha 2 glob ulin measurement by electrophoresis (mass/volume)Ordered By: Brook Huddleston on 12-26-2021 Alpha 2 globulin Elph [Mass/Vol] 1.0 g/dL 0.4-1.0 [facility] Serum or plasma aspartate am inotransferase measurement (enzymatic activity/volume)Ordered By: Brook Huddleston on 12-26-2021 AST [Catalytic activity/Vol] 23 U/L 10-42 [facility] Serum or plasma beta globuli n measurement by electrophoresis (mass/volume)Ordered By: Brook Huddleston on 12-26-2021 Beta globulin Elph [Mass/Vol] 0.9 g/dL 0.7-1.3 [facility] Serum or plasma calcium reese urement (mass/volume)Ordered By: Brook Huddleston on 12-26-2021 Calcium [Mass/Vol] 9.0 mg/dL 8.2-10.2 [facility] Serum or plasma chloride gurdeep surement (moles/volume)Ordered By: Brook Huddleston on 12-26-2021 Chloride [Moles/Vol] 103 mmol/L 95-114 [facility] Serum or plasma gamma globul in measurement by electrophoresis (mass/volume)Ordered By: Brook Huddleston on 12-26-2021 Gamma globulin Elph [Mass/Vol] 0.9 g/dL 0.4-1.8 [facility] Serum or plasma glucose reese urement (mass/volume)Ordered By: Brook Huddleston on 12-26-2021 Glucose [Mass/Vol] 84 mg/dL 70-100 [facility] Comment on above: ADA recommended refe rence [...] on 12-26-2021 Homocysteine [Moles/Vol] 17.5 umol/L 0.0-19.2 [facility] Comment on above: Performed at: [facility] [address] [id number] Orthotic/Prosthetic Practitioner: Melchor Agrawal PhD, Phone: [phone] Performed at: [facility] [address] [id number] Director: Melchor Agrawal PhD, Phone: [phone] Serum or plasma methylmalona te measurement (moles/volume)Ordered By: Brook Huddleston on 12-26-2021 Methylmalonate [Moles/Vol] 230 nmol/L 0-378 [facility] Comment on above: This test was develo ped and its performance characteristics determined by [employer]. It has not been cleared or approved by the Food and Drug Administration. Performed at: [address] [id number] Orthotic/Prosthetic Practitioner: Aliya Curtis MD, Phone: [phone] This test was develo ped and its performance characteristicsdetermined by [employer]. It has not been cleared orapproved by the Food and Drug Administration.Performed at: - [facility] [id number] Director: Aliya Curtis MD, Phone: [phone] Serum or plasma potassium me asurement (moles/volume)Ordered By: Brook Huddleston on 12-26-2021 Potassium [Moles/Vol] 3.9 mmol/L 3.5-5.1 [facility] Serum or plasma sodium measu rement (moles/volume)Ordered By: Brook Huddleston on 12-26-2021 Sodium [Moles/Vol] 135 mmol/L 136-146 [facility] Serum or plasma total biliru bin measurement (mass/volume)Ordered By: Brook Huddleston on 12-26-2021 Bilirubin [Mass/Vol] 0.5 mg/dL 0.3-1.2 [facility] Serum or plasma total carbon dioxide measurement (moles/volume)Ordered By: Brook Huddleston on 12-26-2021 CO2 [Moles/Vol] 20.5 mmol/L 22.0-30.0 [facility] Serum or plasma urea nitroge n measurement (mass/volume)Ordered By: Brook Huddleston on 12-26-2021 Urea nitrogen [Mass/Vol] 18 mg/dL 9-23 [facility] Urine alpha 1 globulin/total protein by electrophoresisOrdered By: Brook Huddleston on 12-26-2021 Alpha 1 globulin Elph (U) [Mass fraction] 5.4 % . [facility] Urine alpha 2 globulin/total protein ratio by electrophoresisOrdered By: Brook Huddleston on 12-26-2021 Alpha 2 globulin Elph (U) [Mass fraction] 13.7 % . [facility] Urine beta globulin measurem ent by electrophoresis (mass/volume)Ordered By: Brook Huddleston on 12-26-2021 Beta globulin Elph (U) [Mass/Vol] 23.9 % . [facility] BONE MARROW CHROMOSOME RALF Natalie 12-23-2021 BONE MARROW CHROM.ANALYSIS SEE BELOW Normal [facility] Comment on above: Result Comment: [employer]ron enetics test results are available electronically in [facility] Acute and Community Record. Results will be sent on a separate report. In the [facility], go to Community record -> click on Clinical documents -> go to Genetics Studies tab for results. Performed By: #### K NATY #### [facility] [address] [place] [address] Clinic Note - Heme Oncon Clinic Note - Heme Onc Cancer History: Treatment Synopsis: Mr Cunningham was initially referred from Dr. 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 Treatment History: Mr. 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 Hospital course notable for 8 of 8 blood cultures growing MSSA, ECHO negative for vegetation. He was discharged to [facility] for physical rehab & to complete treatment with Cefazolin 2gm IV every 8 hrs through 08/20/2020. 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 Normal [facility] Clinic Note - Intakeon 12-12 Clinic Note - Intake Patient Visit Infor mation: Visit TypeFollow Up Visit Source of Informationpatient [...] you are livingno Depression: Past 2 wks: [place] down, depressed or hopelessno Past 2 wks: [place] little interest/pleasure doing thingsno Any Thoughts of [...] 12-Dec-2021 10:16 by Esther Garcia (PCNA) Normal [facility] SURF MARKERS >15,PATH REVon 12-03-2021 PATH REV. >15 MARKERS BEVERLY Normal [facility] Comment on above: Result Comment: By h er/his signature above, the Pathologist listed as making the final interpretation certifies that she/he has personally reviewed this case. Performed By: #### K ALFONSO #### [facility] [address] [place] [address] SURFACE MARKERS LOW GRADE PA NELon 12-03-2021 DIAGNOSIS SEE BELOW Normal [facility] Comment on above: Result Comment: No e vidence of plasma cell neoplasm. No definite immunophenotypic evidence of a lymphoproliferative disorder. Performed By: #### L GP #### [facility] [address] [place] [address] NK 19 % of Lymph Normal [facility] Comment on above: Performed By: #### L GP #### [facility] [address] [place] [address] NOTE SEE BELOW Normal [facility] Comment on above: Result Comment: Conchita martinez with separate surgical pathology report. Performed By: #### L GP #### [facility] [address] [place] [address] PROTEIN ELECTROPHORESIS,SERU 12-02-2021 INTERPRETATION NORMAL Normal [facility] Comment on above: Performed By: #### S PE2 #### [facility] [address] [place] [address] [facility] [address] [place] [address] SPE PATH REVIEWon 12-02-2021 PATH REVIEW-SPE L.MARIIAK Normal [facility] Comment on above: Result Comment: By h er/his signature above, the Pathologist listed as making the final interpretation certifies that she/he has personally reviewed this case. Performed By: #### P R12 #### [facility] [address] [place] [address] IMMUNOGLOBULINS (G,A,M)on IgM [Mass/Vol] 27 mg/dL Low 40 - 230 [facility] Comment on above: Result Comment: MONO CLONAL PROTEINS MAY CAUSE FALSELY LOW RESULTS IN THIS ASSAY. SERUM PROTEIN ELECTROPHORESIS SHOULD BE DONE THE FIRST TEST TO EVALUATE MONOCLONAL GAMMOPATHY. Performed By: #### I GS #### [facility] [address] [place] [address] KAPPA/LAMBDA FREE LIGHT SONIDO Iraheta,Son 11-29-2021 FREE KAPPA LIGHT CHAINS,S 3.92 mg/dL High 0.33 - 1.94 [facility] Comment on above: Performed By: #### K ALFONSO #### [facility] [address] [place] [address] FREE KAPPA/LAMBDA RATIO,S 1.34 Normal 0.26 - 1.65 [facility] Comment on above: Result Comment: Unde tected [...] laboratory. Performed By: #### K ALFONSO #### [facility] [address] [place] [address] FREE LAMBDA LIGHT CHAIN,S 2.92 mg/dL High 0.57 - 2.63 [facility] Comment on above: Performed By: #### K ALFONSO #### [facility] [address] [place] [address] PROTEIN ELECTROPHORESIS,SERU 11-29-2021 Albumin [Mass/Vol] 3.6 g/dL Normal 3.4 - 5.0 [facility] Comment on above: Performed By: #### S PE2 #### [facility] [address] [place] [address] [facility] [address] [place] [address] ALPHA 1 GLOBULIN 0.3 g/dL Normal 0.2 - 0.6 [facility] Comment on above: Performed By: #### S PE2 #### [facility] [address] [place] [address] [facility] [address] [place] [address] ALPHA 2 GLOBULIN 0.6 g/dL Normal 0.4 - 1.1 [facility] Comment on above: Performed By: #### S PE2 #### [facility] [address] [place] [address] [facility] [address] [place] [address] BETA GLOBULIN 0.7 g/dL Normal 0.5 - 1.2 [facility] Comment on above: Performed By: #### S PE2 #### [facility] [address] [place] [address] [facility] [address] [place] [address] GAMMA GLOBULIN 0.9 g/dL Normal 0.5 - 1.4 [facility] Comment on above: Performed By: #### S PE2 #### [facility] [address] [place] [address] [facility] [address] [place] [address] SURFACE MARKERS LOW GRADE PA NELon 11-29-2021 CD19 1 % of Lymph Normal [facility] Comment on above: Performed By: #### L GP #### [facility] [address] [place] [address] CD4 52 % of Lymph Normal [facility] Comment on above: Performed By: #### L GP #### [facility] [address] [place] [address] CD8 28 % of Lymph Normal [facility] Comment on above: Performed By: #### L GP #### [facility] [address] [place] [address] CELL COUNT 7.56 x10E9/L Normal [facility] Comment on above: Performed By: #### L GP #### [facility] [address] [place] [address] Granulocytes/100 WBC (Bld) 49 % Normal [facility] Comment on above: Performed By: #### L GP #### [facility] [address] [place] [address] Lymphocytes/100 WBC (Bld) 9 % Normal [facility] Comment on above: Performed By: #### L GP #### [facility] [address] [place] [address] Monocytes/100 WBC (Bld) 4 % Normal [facility] Comment on above: Performed By: #### L GP #### [facility] [address] [place] [address] NUMBER OF CELLS COLLECTED 100,000 per tube Normal [facility] Comment on above: Performed By: #### L GP #### [facility] [address] [place] [address] SPECIMEN VIABILITY Acceptable Normal [facility] Comment on above: Result Comment: Flow cytometry results should be interpreted in the context of morphology. Flow cytometry findings may be unreliable due to sampling issues, differential loss or recovery of cell populations ex vivo, or low viability. Performed By: #### L GP #### [facility] [address] [place] [address] AMB - Narrative Note Nursing -BMBx Nursing Noteon 11-28-2021 AMB - Narrative Note Nursing-BMBx Nursing Note Topic and Description: Topic: BMBx Nursing Note Description: Patient arrived to ASCT unit via self-ambulation for bone marrow biopsy accompanied by . He is alert and oriented x3, denies pain or any discomfort. Vital signs obtained. Blood drawn from outpatient lab. BANQUET CAPTAIN performed procedure. After biopsy, dressing checked is clean, dry and intact. Education provided and PI sheet given. No adverse reactions, no complaints and no assistance needed. Electronic Signatures: Violetta Bundy (RN) (Signed 28-Nov-2021 11:37) Authored: Topic and Description Last Updated: 28-Nov-2021 11:37 by Violetta Bundy (RN) Normal [facility] BETA 2 MICROGLOBULINon 11-28 BETA 2 MICROGLOBULIN 3.5 mg/L High 0.7 - 2.2 [facility] Comment on above: Performed By: #### B 2MIC #### [facility] [address] [place] [address] CBC AND DIFFERENTIALon 11-28 % AUTOMATED IMMATURE GRAN 0.0 % Normal 0.0 - 0.9 [facility] Comment on above: Result Comment: Yue ture Granulocyte Count (IG) includes promyelocytes, myelocytes and metamyelocytes but does not include bands. Percent differential counts (%) should be interpreted in the context of the absolute cell counts (cells/L). Performed By: #### P R12 #### [facility] [address] [place] [address] Basophils (Bld) [#/Vol] 0.02 10*3/uL Normal 0.00 - 0.10 [facility] Comment on above: Performed By: #### P R12 #### [facility] [address] [place] [address] Basophils/100 WBC (Bld) 0.9 % Normal 0.0 - 2.0 [facility] Comment on above: Performed By: #### P R12 #### [facility] [address] [place] [address] Eosinophils (Bld) [#/Vol] 0.26 10*3/uL Normal 0.00 - 0.40 [facility] Comment on above: Performed By: #### P R12 #### [facility] [address] [place] [address] Eosinophils/100 WBC (Bld) 11.5 % Normal 0.0 - 6.0 [facility] Comment on above: Performed By: #### P R12 #### [facility] [address] [place] [address] Lymphocytes (Bld) [#/Vol] 0.58 10*3/uL Low 0.80 - 3.00 [facility] Comment on above: Performed By: #### P R12 #### [facility] [address] [place] [address] Lymphocytes/100 WBC (Bld) 25.7 % Normal 13.0 - 44.0 [facility] Comment on above: Performed By: #### P R12 #### [facility] [address] [place] [address] Monocytes (Bld) [#/Vol] 0.27 10*3/uL Normal 0.05 - 0.80 [facility] Comment on above: Performed By: #### P R12 #### [facility] [address] [place] [address] Monocytes/100 WBC (Bld) 11.9 % Normal 2.0 - 10.0 [facility] Comment on above: Performed By: #### P R12 #### [facility] [address] [place] [address] Neutrophils (Bld) [#/Vol] 1.13 10*3/uL Low 1.60 - 5.50 [facility] Comment on above: Performed By: #### P R12 #### [facility] [address] [place] [address] Neutrophils/100 WBC (Bld) 50.0 % Normal 40.0 - 80.0 [facility] Comment on above: Performed By: #### P R12 #### [facility] [address] [place] [address] Platelets (Bld) [#/Vol] 72 10*3/uL Low 150 - 450 [facility] Comment on above: Performed By: #### P R12 #### [facility] [address] [place] [address] Erythrocyte distribution width (RBC) [Ratio] 21.5 % High 11.5 - 14.5 [facility] Comment on above: Performed By: #### P R12 #### [facility] [address] [place] [address] Hematocrit (Bld) [Volume fraction] 25.3 % Low 41.0 - 52.0 [facility] Comment on above: Performed By: #### P R12 #### [facility] [address] [place] [address] Hemoglobin (Bld) [Mass/Vol] 8.6 g/dL Low 13.5 - 17.5 [facility] Comment on above: Performed By: #### P R12 #### [facility] [address] [place] [address] MCHC (RBC) [Mass/Vol] 34.0 g/dL Normal 32.0 - 36.0 [facility] Comment on above: Performed By: #### P R12 #### [facility] [address] [place] [address] MCV (RBC) [Entitic vol] 108 fL High 80 - [address] [facility] Comment on above: Performed By: #### P R12 #### [facility] [address] [place] [address] RBC 2.35 x10E12/L Low 4.50 - 5.90 [facility] Comment on above: Performed By: #### P R12 #### [facility] [address] [place] [address] WBC (Bld) [#/Vol] 2.3 10*3/uL Low 4.4 - 11.3 [facility] Comment on above: Performed By: #### P R12 #### [facility] [address] [place] [address] COMPREHENSIVE PANELon 2021 Albumin [Mass/Vol] 3.8 g/dL Normal 3.4 - 5.0 [facility] Comment on above: Performed By: #### C MP #### [facility] [address] [place] [address] ALP [Catalytic activity/Vol] 78 U/L Normal 33 - 136 [facility] Comment on above: Performed By: #### C MP #### [facility] [address] [place] [address] ALT [Catalytic activity/Vol] 18 U/L Normal 10 - 52 [facility] Comment on above: Result Comment: Gloria ents treated with Sulfasalazine may generate falsely decreased results for ALT. Performed By: #### C MP #### [facility] [address] [place] [address] Anion gap [Moles/Vol] 11 mmol/L Normal 10 - 20 [facility] Comment on above: Performed By: #### C MP #### [facility] [address] [place] [address] AST [Catalytic activity/Vol] 17 U/L Normal 9 - 39 [facility] Comment on above: Performed By: #### C MP #### [facility] [address] [place] [address] Bilirubin [Mass/Vol] 0.7 mg/dL Normal 0.0 - 1.2 [facility] Comment on above: Performed By: #### C MP #### [facility] [address] [place] [address] Calcium [Mass/Vol] 9.3 mg/dL Normal 8.6 - 10.3 [facility] Comment on above: Performed By: #### C MP #### [facility] [address] [place] [address] Chloride [Moles/Vol] 105 mmol/L Normal 98 - 107 [facility] Comment on above: Performed By: #### C MP #### [facility] [address] [place] [address] Creatinine [Mass/Vol] 1.14 mg/dL Normal 0.50 - 1.30 [facility] Comment on above: Performed By: #### C MP #### [facility] [address] [place] [address] GFR/1.73 sq M.predicted among non-blacks MDRD (S/P/Bld) [Vol rate/Area] 66 mL/min/{1.73_m2} Normal >90 [facility] Comment on above: Result Comment: CALC ULATIONS OF ESTIMATED GFR ARE PERFORMED USING THE 2020 CKD-EPI STUDY REFIT EQUATION WITHOUT THE RACE VARIABLE FOR THE IDMS-TRACEABLE CREATININE METHODS. https://jasn.asnjournals.org/content/early//ASN.2020 437832 Performed By: #### C MP #### [facility] [address] [place] [address] Glucose [Mass/Vol] 163 mg/dL High 74 - 99 [facility] Comment on above: Performed By: #### C MP #### [facility] [address] [place] [address] HCO3 (Bld) [Moles/Vol] 27 mmol/L Normal 21 - 32 [facility] Comment on above: Performed By: #### C MP #### [facility] [address] [place] [address] Potassium [Moles/Vol] 3.4 mmol/L Low 3.5 - 5.3 [facility] Comment on above: Performed By: #### C MP #### [facility] [address] [place] [address] Sodium [Moles/Vol] 140 mmol/L Normal 136 - 145 [facility] Comment on above: Performed By: #### C MP #### [facility] [address] [place] [address] Urea nitrogen [Mass/Vol] 14 mg/dL Normal 6 - 23 [facility] Comment on above: Performed By: #### C #### [facility] [address] [place] [id number] Clinic Note - [facility] Onc-Follo w Up Visiton 11-28-2021 Clinic Note - [facility] Onc-Follow Up Visit Patient Visit Information: Visit Type: Follow Up Visit Cancer History: Treatment Synopsis: Mr Cunningham was initially referred from Dr. 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 He achieved VGPR following Daratumumab/Velcade/Dexame thasone/Revlimid. 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 Hospital course notable for 8 of 8 blood cultures growing MSSA, ECHO negative for vegetation. He was discharged to [facility] for physical rehab & to complete treatment with Cefazolin 2gm IV every 8 hrs through 08/20/2020. History of Present Illness: ID Statement: PATSY CUNNINGHAM is a 76 year old Male and Day of Transplant #490 Chief Complaint: Post transplant myeloma Interval History: Mr. Cunningham presents today (11/28/2021) to [facility] for follow up evaluation, labs, and bone marrow biopsy. 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 He continues to be on Revlimid 5 mg daily, Aspirin 81 mg daily. He has been following up with his local primary oncologist at [facility], Dr. Huddleston. T+490 today. Mr. Cunningham reports overall he is doing well. He [...] 2 units pRBCs on 10/31/21 at [facility]. No other transfusions since then. States over [...] brought in by patient's (mostly from [facility]), patient's blood counts have been downtrending. On [...] Anemia: I (more content not included)... Normal [facility] Clinic Note - Intakeon 11-28 Clinic Note - Intake Patient Visit Infor mation: Visit TypeNew Visit Source of Informationpatient Vital [...] Profile, Notification, Travel History, [place] Violetta Bundy (RN) (Signed 28-Nov-2021 11:15) Authored: [place] Co-Signer: Patient Visit Information, Vital Signs, Allergies, Outpatient Medication Profile, Notification, Travel History, [place] Last Updated: 28-Nov-2021 11:15 by Violetta Bundy (RN) Normal [facility] FLOW CYTOMETRY TESTon 2021 FLOW TEST ORDERED LOW GRADE PANEL Normal [facility] Comment on above: Performed By: #### F CTST #### [facility] [address] [place] [address] SOURCE BONE MARROW Normal [facility] Comment on above: Performed By: #### F CTST #### [facility] [address] [place] [address] Hold cultured cells for futu re analysison 11-28-2021 Hold cultured cells for future analysis Hold cultured cells for future analysis CYT OGENETIC REPORT: [id number] --- Patient: Patsy Cunningham Date of : 1945 Specimen: Bone Marrow Date received: 11/28/2021 Lab ID: [id number] Indication: Multiple Myeloma Report date: 12/05/2021 Test: [...] receipt. Please contact the Genetics lab at [phone] for details. Final report signed by: Chris Marshall Ph.D., FACMG, FCCMG Test performed at: [address], [place], [place] [address] FAX: [phone] Website: [email or web address] Referred by: Quique Hall M.D. Yogi Roe M.D., Ph.D. Normal [facility] IMMUNOGLOBULINS (G,A,M)on IgA [Mass/Vol] 203 mg/dL Normal 70 - 400 [facility] Comment on above: Result Comment: MONO CLONAL PROTEINS MAY CAUSE FALSELY LOW RESULTS IN THIS ASSAY. SERUM PROTEIN ELECTROPHORESIS SHOULD BE DONE THE FIRST TEST TO EVALUATE MONOCLONAL GAMMOPATHY. Performed By: #### I GS #### [facility] [address] [place], [place] IgG [Mass/Vol] 955 mg/dL Normal 700 - 1600 [facility] Comment on above: Result Comment: MONO CLONAL PROTEINS MAY CAUSE FALSELY LOW RESULTS IN THIS ASSAY. SERUM PROTEIN ELECTROPHORESIS SHOULD BE DONE THE FIRST TEST TO EVALUATE MONOCLONAL GAMMOPATHY. Performed By: #### I GS #### [facility] [address] [place] [address] LDHon 11-28-2021 LDH 150 U/L Normal 84 - 246 [facility] Comment on above: Performed By: #### L DH #### [facility] [address] [place] [address] PROTEIN ELECTROPHORESIS,SERU 11-28-2021 Protein [Mass/Vol] 6.1 g/dL Low 6.4 - 8.2 [facility] Comment on above: Performed By: #### S PE2 #### [facility] [address] [place] [address] [facility] [address] [place] [address] Performed By: #### C MP #### [facility] [address] [place] [address] RED CELL MORPHOLOGYon 2021 OVALOCYTES Few Normal [facility] Comment on above: Performed By: #### M ORP2 #### [facility] [address] [place] [address] POLYCHROMASIA Mild Normal [facility] Comment on above: Performed By: #### M ORP2 #### [facility] [address] [place], [place] RBC morphology finding Nom (Bld) See Below Normal [facility] Comment on above: Performed By: #### M ORP2 #### [facility] [address] [place] SURFACE MARKERS LOW GRADE PA NELon 11-28-2021 METHOD SEE BELOW Normal [facility] Comment on above: Result Comment: This test is a multicolor, whole blood lysis assay. It was developed and its performance characteristics determined by the Department of Pathology, [facility], and has not been cleared or approved [...] CD43, CD23, CD1c, CD25, CD180, CD11c, CD79b, [place], Lambda, IgD. Additional Antibodies: CD138, CD27 Performed By: #### L GP #### [facility] [address] [place], [place] SPECIMEN SITE Bone Marrow Normal [facility] Comment on above: Performed By: #### L GP #### [facility] [address] [place], [place] [facility] Surgical Pathology Depar tmenton 11-28-2021 [facility] Surgical Pathology Department Name PATSY CUNNINGHAM Pathologist: YOGI ROE JR, MD, PhD. Date of Procedure: 11/28/2021 Date Received: 11/28/2021 Date Reported 12/03/2021 Submitting Physician: QUIQUE HALL MD Location: [facility] Other External # FINAL DIAGNOSIS [...] Vicente Rice MD. Electronically Signed Out By YOGI ROE JR, MD, PhD./LETTY By the signature on this report, the individual or group listed as making the Final Interpretation/Diagnosis certifies that they have reviewed this case. [...] toto in one cassette following decalcification. RCC rcc/11/28/2021 The assays/tests were performed with appropriate positive and negative controls which stained appropriately. [facility] Department of Pathology [address] [place] [address] Normal [facility] Comment on above: Performed By: #### K ALFONSO #### [facility] [address] [facility] [place] [address] Lactate dehydrogenase measur ement (enzymatic activity/volume)Ordered By: Brook Huddleston on 09-16-2021 LDH (Unsp spec) [Catalytic activity/Vol] 128 U/L 45-190 [facility] Serum or plasma zcbu-4-tcgum globulin measurement (mass/volume)Ordered By: Brook Huddleston on 09-16-2021 Ujxv-2-Okteumyqpykij [Mass/Vol] 3.9 ug/mL High 0.6-2.4 [facility] Comment on above: Siemens Immulite 200 0 Immunochemiluminometric assay (ICMA) Values obtained with different assay methods or kits cannot be used interchangeably. Results cannot be interpreted as absolute evidence of the presence or absence of malignant disease. Performed at: [facility] [id number] Orthotic/Prosthetic Practitioner: Aliya Curtis MD, Phone: [phone] Siemens Immulite 200 0 Immunochemiluminometric assay (ICMA)Values obtained with different assay methods or kits cannotbe used interchangeably. Results cannot be interpreted asabsolute evidence of the presence or absence of malignantdisease.Performed at: [employer] [address] [id number] Director: Aliya Curtis MD, Phone: [phone] Wimz-8-Ezyyrofjcdlcf [Mass/Vol] Serum or plasma mdju-5-advcgluvvmtnx measurement (mass/volume) High 0.6-2.4 [facility] Comment on above: Siemens Immulite 200 0 Immunochemiluminometric assay (ICMA)Values obtained with different assay methods or kits cannotbe used interchangeably. Results cannot be interpreted asabsolute evidence of the presence or absence of malignantdisease.Performed at: [facility] [id number] [place], [place] [id number] Director: Aliya Curtis MD, Phone: [phone] Laboratory - Microbiology an d Antimicrobial susceptibilityon 07-11-2020 SARS-CoV-2 (COVID-19) RNA ERIN+probe Ql (Unsp spec) N/A [facility] No Panel Informationon 07-11 N/A [facility] Respiratory specimen 2019 no ml coronavirus RNA detection by probe and target amplifion 07-11-2020 SARS-CoV-2 (COVID-19) RNA ERIN+probe Ql (Resp) Not detected Not Detected [facility] Comment on above: This nucleic acid am plification test was developed and its performance characteristics determined by [employer]. Nucleic acid amplification tests include PCR and [...] was developed and itsperformance characteristics determined by [facility]. Nucleic acid amplification tests include PCRand TMA. This test has not been FDA cleared or approved.This test has been authorized by FDA under an Emergency UseAuthorization (EUA). This test is only authorized forthe duration of time the declaration that circumstancesexist justifying the authorization of the emergency use ofin vitro diagnostic tests for detection of SARS-CoV-2 virusand/or diagnosis of COVID-19 infection under pqbjnys083(b)(1) of the Act, 21 U.S.C. 360bbb-3(b) (1), [...] a negative(not detected) result in this assay. SARS-CoV-2 (COVID-19) RNA ERIN+probe Ql (Resp) Respiratory specimen 2019 novel coronavirus RNA detection by probe and target amplifi Not Detected [facility] Comment on above: This nucleic acid am plification test was developed and itsperformance characteristics determined by [facility]. Nucleic acid amplification tests include PCRand TMA. This test has not been FDA cleared or approved.This test has been authorized by FDA under an Emergency UseAuthorization (EUA). This test is only authorized forthe duration of time the declaration that circumstancesexist justifying the authorization of the emergency use ofin vitro diagnostic tests for detection of SARS-CoV-2 virusand/or diagnosis of COVID-19 infection under [id number](b)(1) of the Act, 21 U.S.C. 360bbb-3(b) (1), [...] 07-02-2020 WBC (Bld) [#/Vol] 8.6 10*3/uL 4.5-11.0 [facility] No Panel Informationon 07-02 8.6 10*3/uL 4.5-11.0 [facility] Laboratory - Chemistry and C hemistry - challengeon 06-04-2020 Magnesium [Mass/Vol] 2.1 mg/dL 1.6-2.6 [facility] No Panel Informationon 04-30 Methylmalonic Acid Comment See comment . [facility] Comment on above: This test was develo ped and its performance characteristics determined by [facility]. It has not been cleared or approved by the Food and Drug Administration. Performed at: [facility] [employer] [id number] Orthotic/Prosthetic Practitioner: Aliya Curtis MD, Phone: [phone] This test was develo ped and its performance characteristicsdetermined by [facility]. It has not been cleared orapproved by the Food and Drug Administration.Performed at: [facility] [employer] [id number] Director: Aliya Curtis MD, Phone: [phone] See comment . [facility] Cholesterol [Mass/volume] in Serum or Plasmaon 03-19-2020 Cholesterol [Mass/Vol] 113 mg/dL Low 140-200 [facility] Comment on above: Chol less than 200 m g/dl low risk Chol 201-239 mg/dl borderline risk Chol 240 mg/dl and greater high risk Chol less than 200 m g/dl low riskChol 201-239 mg/dl borderline riskChol 240 mg/dl and greater high risk Cholesterol [Mass/Vol] Cholesterol [Mass /volume] in Serum or Plasma Low 140-200 [facility] Comment on above: Chol less than 200 m g/dl low riskChol 201-239 mg/dl borderline riskChol 240 mg/dl and greater high risk Cholesterol in LDL Calc [Mas s/Vol]on 03-19-2020 Cholesterol in LDL [Mass/Vol] 59 mg/dL 0-100 [facility] Comment on above: LDL ATP III CLASSIFI [...] than 189 mg/dL Very high Cholesterol in LDL [Mass/Vol] Cholesterol in LDL [Mass/volume] in Serum or Plasma by calculation 0-100 [facility] Comment on above: LDL ATP III CLASSIFI CATIONLDL less than 100 mg/dL OptimalLDL 100-129 mg/dL Near or above optimalLDL 130-159 mg/dL Borderline highLDL 160-189 mg/dL HighLDL greater than 189 mg/dL Very high Cholesterol in VLDL Calc [Ma ss/Vol]on 03-19-2020 Cholesterol in VLDL [Mass/Vol] 29 mg/dL [facility] Cholesterol in VLDL [Mass/Vol] Cholesterol in VLDL [Mass/volume] in Serum or Plasma by calculation [facility] Glucose mean value [Mass/vol ume] in Blood Estimated from glycated hemoglobinon 03-19-2020 Average glucose Estimated from glycated hemoglobin (Bld) [Mass/Vol] 140 mg/dL [facility] Average glucose Estimated from glycated hemoglobin (Bld) [Mass/Vol] Glucose mean value [Mass/volume] in Blood Estimated from glycated hemoglobin [facility] Hemoglobin A1c percentageon 03-19-2020 HbA1c (Bld) [Mass fraction] 6.5 % High 4.3-5.6 [facility] Comment on above: Increased risk for d iabetes: 5.7 - 6.4 diabetes: >6.4 glycemic control for adults with diabetes: <7.0 Increased risk for d iabetes: 5.7 - 6.4diabetes: >6.4glycemic control for adults with diabetes: <7.0 HbA1c (Bld) [Mass fraction] Hemoglobin A1c percentage High 4.3-5.6 [facility] Comment on above: Increased risk for d iabetes: 5.7 - 6.4diabetes: >6.4glycemic control for adults with diabetes: <7.0 No Panel Informationon 03-19 Prostate Specific Antigen Total 2.280 ng/mL 0.000-4.00 0 [facility] 2.280 ng/mL 0.000-4.00 0 [facility] Prostate Specific Ag Free [M ass/volume] in Serum or Plasmaon 03-19-2020 Free PSA [Mass/Vol] Prostate Specific Ag Free [Mass/volume] in Serum or Plasma [facility] Serum or plasma free prostat e specific antigen (PSA)/total PSA ratioon 03-19-2020 Free PSA/Total PSA [Mass fraction] 11.0 % [facility] Comment on above: Based on the work of Catalona et al.DALJIT. [id number] the percent free PSA may be used [...] on the work of Catalona et al.DALJIT. [id number] the percent free PSA may be used [...] - 25 10% 20% >25 5% 9% Free PSA/Total PSA [Mass fraction] Serum or plasma free prostate specific antigen (PSA)/total PSA ratio [facility] Comment on above: Based on the work of Catalona et al.DALJIT. [id number] the percent free PSA may be used [...] (mass/volume)on 03-19-2020 Free PSA [Mass/Vol] 0.260 ng/mL [facility] Serum or plasma high density lipoprotein (HDL) cholesterol measurementon 03-19-2020 Cholesterol in HDL [Mass/Vol] 25 mg/dL Low 29-71 [facility] Comment on above: HDL CHOL ATP-III CLA SSIFICATION Cardiovascular Risk HDL > or equal to 60 mg/dL LOW HDL < 40 mg/dL HIGH HDL CHOL ATP-III CLA SSIFICATION Cardiovascular RiskHDL > or equal to 60 mg/dL LOWHDL < 40 mg/dL HIGH Cholesterol in HDL [Mass/Vol] Serum or plasma high density lipoprotein (HDL) cholesterol measurement Low 2971 [facility] Comment on above: HDL CHOL ATP-III CLA SSIFICATION Cardiovascular RiskHDL > or equal to 60 mg/dL LOWHDL < 40 mg/dL HIGH Serum or plasma total choles terol/high density lipoprotein (HDL) cholesterol mass fauzia 03-19-2020 Cholesterol.total/Remedios sterol in HDL [Mass ratio] 4.5 {ratio} <5.0 [facility] Cholesterol.total/Remedios sterol in HDL [Mass ratio] Serum or plasma total cholesterol/high density lipoprotein (HDL) cholesterol mass rat <5.0 [facility] TSH DL <= 0.005 mIU/L Qnon 0 03-19-2020 TSH Qn 0.22 m[IU]/L Low 0.45-5.33 [facility] TSH Qn Serum or plasma thyr oid stimulating hormone (TSH) measurement by high sensitivity met Low 0.45-5.33 [facility] Thyroxine (T4) free [Mass/vo lume] in Serum or Plasmaon 03-19-2020 Free T4 [Mass/Vol] 1.18 ng/dL High 0.61-1.12 [facility] Free T4 [Mass/Vol] Thyroxine (T4) free [Mass/volume] in Serum or Plasma High 0.61-1.12 [facility] Triglyceride [Mass/volume] i n Serum or Plasmaon 03-19-2020 Triglyceride [Mass/Vol] 147 mg/dL 35-149 [facility] Comment on above: TRIG ATP III [...] Disease Conrtrol and Prevention (CDC) test method. Triglyceride [Mass/Vol] Triglyceride [Ma ss/volume] in Serum or Plasma 35-149 [facility] Comment on above: TRIG ATP III CLASSIF ICATIONTRIG less than 150 mg/dL NormalTRIG 150-199 mg/dL Borderline highTRIG 200-500 mg/dL High TRIG greater than 500 mg/dL Very highStandard traceable to the Center for Disease Conrtrol and Prevention (CDC) test method. Teardrop cell detectionon Dacrocytes LM Ql (Bld) [facility] Vital Signs Date Time Vital Sign Value Performing Clinician Facility 02-08-2025 14:04-0400 Body height 177.8 cm Helen Heath MD Work Phone: [facility] 02-08-2025 14:04-0400 Body mass index (BMI) [Ratio] 29.7 kg/m2 Helen Heath MD Work Phone: [facility] 02-08-2025 14:04-0400 Body temperature 97.7 [degF] Helen Heath MD Work Phone: [facility] 02-08-2025 14:04-0400 Body weight 93.89 kg Helen Heath MD Work Phone: [facility] 02-08-2025 14:04-0400 Diastolic blood pressure 77 mm[Hg] Helen Heath MD Work Phone: [facility] 02-08-2025 14:04-0400 Heart rate 72 /min Helen Heath MD Work Phone: [facility] 02-08-2025 14:04-0400 Respiratory rate 16 /min Helen Heath MD Work Phone: [facility] 02-08-2025 14:04-0400 SaO2% (BldA) [Mass fraction] 97 % Helen Heath MD Work Phone: [facility] 02-08-2025 14:04-0400 Systolic blood pressure 131 mm[Hg] Helen Heath MD Work Phone: [facility] 01-03-2025 14:40-0400 Body height 177.8 cm Helen Heath MD Work Phone: [facility] 01-03-2025 14:40-0400 Body mass index (BMI) [Ratio] 29.2 kg/m2 Helen Heath MD Work Phone: [facility] 01-03-2025 14:40-0400 Body weight 92.53 kg Helen Heath MD Work Phone: [facility] 01-03-2025 14:40-0400 Diastolic blood pressure 62 mm[Hg] Helen Heath MD Work Phone: [facility] 01-03-2025 14:40-0400 Heart rate 74 /min Helen Heath MD Work Phone: [facility] 01-03-2025 14:40-0400 Respiratory rate 16 /min Helen Heath MD Work Phone: [facility] 01-03-2025 14:40-0400 SaO2% (BldA) [Mass fraction] 99 % Helen Heath MD Work Phone: [facility] 01-03-2025 14:40-0400 Systolic blood pressure 113 mm[Hg] Helen Heath MD Work Phone: [facility] 10-06-2024 13:03-0500 Body height 177.8 cm Helen Heath MD Work Phone: [facility] 10-06-2024 13:03-0500 Body mass index (BMI) [Ratio] 30.8 kg/m2 Helen Heath MD Work Phone: [facility] 10-06-2024 13:03-0500 Body temperature 97.3 [degF] Helen Heath MD Work Phone: [facility] 10-06-2024 13:03-0500 Body weight 97.52 kg Helen Heath MD Work Phone: [facility] 10-06-2024 13:03-0500 Diastolic blood pressure 79 mm[Hg] Helen Heath MD Work Phone: [facility] 10-06-2024 13:03-0500 Heart rate 74 /min Helen Heath MD Work Phone: [facility] 10-06-2024 13:03-0500 Respiratory rate 16 /min Helen Heath MD Work Phone: [facility] 10-06-2024 13:03-0500 SaO2% (BldA) [Mass fraction] 99 % Helen Heath MD Work Phone: [facility] 10-06-2024 13:03-0500 Systolic blood pressure 133 mm[Hg] Helen Heath MD Work Phone: [facility] 10-04-2024 15:20-0500 Body height 177.8 cm Helen Heath MD Work Phone: [facility] 10-04-2024 15:20-0500 Body mass index (BMI) [Ratio] 30.9 kg/m2 Helen Heath MD Work Phone: [facility] 10-04-2024 15:20-0500 Body weight 97.74 kg Helen Heath MD Work Phone: [facility] 10-04-2024 15:20-0500 Diastolic blood pressure 80 mm[Hg] Helen Heath MD Work Phone: [facility] 10-04-2024 15:20-0500 Heart rate 85 /min Helen Heath MD Work Phone: [facility] 10-04-2024 15:20-0500 Respiratory rate 16 /min Helen Heath MD Work Phone: [facility] 10-04-2024 15:20-0500 SaO2% (BldA) [Mass fraction] 99 % Helen Heath MD Work Phone: [facility] 10-04-2024 15:20-0500 Systolic blood pressure 123 mm[Hg] Helen Heath MD Work Phone: [facility] 08-31-2024 11:10-0500 Blood Pressure Location Orquidea Lue [facility] 08-31-2024 11:10-0500 Diastolic blood pressure 76 mm[Hg] Orquidea Lue [facility] 08-31-2024 11:10-0500 Heart rate 82 /min Orquidea Lue [facility] 08-31-2024 11:10-0500 Respiratory rate 18 /min Orquidea Lue [facility] 08-31-2024 11:10-0500 Systolic blood pressure 139 mm[Hg] Orquidea Lue [facility] 08-09-2024 11:29-0500 Blood Pressure Location Makayla Orzech [facility] 08-09-2024 11:29-0500 Diastolic blood pressure 97 mm[Hg] Makayla Orzech [facility] 08-09-2024 11:29-0500 Heart rate 73 /min Makayla Orzech [facility] 08-09-2024 11:29-0500 Systolic blood pressure 179 mm[Hg] Makayla Orzech [facility] 08-03-2024 15:35-0500 Body height 177.8 cm Helen Heath MD Work Phone: [facility] 08-03-2024 15:35-0500 Body mass index (BMI) [Ratio] 29.7 kg/m2 Helen Heath MD Work Phone: [facility] 08-03-2024 15:35-0500 Body temperature 96.1 [degF] Helen Heath MD Work Phone: [facility] 08-03-2024 15:35-0500 Body weight 93.95 kg Helen Heath MD Work Phone: [facility] 08-03-2024 15:35-0500 Diastolic blood pressure 68 mm[Hg] Helen Heath MD Work Phone: [facility] 08-03-2024 15:35-0500 Heart rate 75 /min Helen Heath MD Work Phone: [facility] 08-03-2024 15:35-0500 Respiratory rate 16 /min Helen Heath MD Work Phone: [facility] 08-03-2024 15:35-0500 SaO2% (BldA) [Mass fraction] 99 % Helen Heath MD Work Phone: [facility] 08-03-2024 15:35-0500 Systolic blood pressure 154 mm[Hg] Helen Heath MD Work Phone: [facility] 06-29-2024 14:22-0500 Diastolic blood pressure 68 mm[Hg] Helen Heath MD Work Phone: [facility] 06-29-2024 14:22-0500 Heart rate 73 /min Helen Heath MD Work Phone: [facility] 06-29-2024 14:22-0500 SaO2% (BldA) [Mass fraction] 99 % Helen Heath MD Work Phone: [facility] 06-29-2024 14:22-0500 Systolic blood pressure 130 mm[Hg] Helen Heath MD Work Phone: [facility] 06-29-2024 14:21-0500 Body weight 95.7 kg Helen Heath MD Work Phone: [facility] 06-10-2024 11:44-0400 Blood Pressure Location Orquidea Lue [facility] 06-10-2024 11:44-0400 Diastolic blood pressure 64 mm[Hg] Orquidea Lue [facility] 06-10-2024 11:44-0400 Heart rate 67 /min Orquidea Lue [facility] 06-10-2024 11:44-0400 Systolic blood pressure 133 mm[Hg] Orquidea Lue [facility] 06-05-2024 13:54-0400 Body temperature 97.9 [degF] MD Helen Heath Work Phone: [facility] 06-05-2024 13:54-0400 Diastolic blood pressure 78 mm[Hg] MD Helen Heath Work Phone: [facility] 06-05-2024 13:54-0400 Heart rate 68 /min MD Helen Heath Work Phone: [facility] 06-05-2024 13:54-0400 Respiratory rate 18 /min MD Helen Heath Work Phone: [facility] 06-05-2024 13:54-0400 SaO2% (BldA) [Mass fraction] 97 % MD Helen Heath Work Phone: [facility] 06-05-2024 13:54-0400 Systolic blood pressure 113 mm[Hg] MD Helen Heath Work Phone: [facility] 06-05-2024 06:00-0400 Body weight 93 kg MD Helen Heath Work Phone: [facility] 06-04-2024 08:40-0400 Inhaled oxygen flow rate 6 L/min MD Helen Heath Work Phone: [facility] 06-03-2024 14:24-0400 Body height 177.8 cm MD Helen Heath Work Phone: [facility] 06-02-2024 19:44-0400 Body height 177.8 cm MD Helen Heath Work Phone: [facility] 06-02-2024 19:44-0400 Body temperature 97.6 [degF] MD Helen Heath Work Phone: [facility] 06-02-2024 19:44-0400 Body weight 94.7 kg MD Helen Heath Work Phone: [facility] 06-02-2024 19:44-0400 Diastolic blood pressure 69 mm[Hg] MD Helen Heath Work Phone: [facility] 06-02-2024 19:44-0400 Heart rate 80 /min MD Helen Heath Work Phone: [facility] 06-02-2024 19:44-0400 Respiratory rate 16 /min MD Helen Heath Work Phone: [facility] 06-02-2024 19:44-0400 SaO2% (BldA) [Mass fraction] 95 % MD Helen Heath Work Phone: [facility] 06-02-2024 19:44-0400 Systolic blood pressure 153 mm[Hg] MD Helen Heath Work Phone: [facility] 06-02-2024 19:32-0400 Body temperature 98 [degF] MD Helen Heath Work Phone: [facility] 06-02-2024 19:32-0400 Diastolic blood pressure 71 mm[Hg] MD Helen Heath Work Phone: [facility] 06-02-2024 19:32-0400 Heart rate 72 /min MD Helen Heath Work Phone: [facility] 06-02-2024 19:32-0400 Respiratory rate 20 /min MD Helen Heath Work Phone: [facility] 06-02-2024 19:32-0400 SaO2% (BldA) [Mass fraction] 98 % MD Helen Heath Work Phone: [facility] 06-02-2024 19:32-0400 Systolic blood pressure 149 mm[Hg] MD Helen Heath Work Phone: [facility] 06-02-2024 15:31-0400 Body height 175.26 cm MD Helen Heath Work Phone: [facility] 06-02-2024 15:31-0400 Body weight 93.6 kg MD Helen Heath Work Phone: [facility] 06-02-2024 14:33-0400 Body height 175.26 cm MD Helen Heath Work Phone: [facility] 06-02-2024 14:33-0400 Body mass index (BMI) [Ratio] 30.4 kg/m2 MD Helen Heath Work Phone: [facility] 06-02-2024 14:33-0400 Body temperature 97.9 [degF] MD Helen Heath Work Phone: [facility] 06-02-2024 14:33-0400 Body weight 93.44 kg MD Helen Heath Work Phone: [facility] 06-02-2024 14:33-0400 Diastolic blood pressure 72 mm[Hg] MD Helen Heath Work Phone: [facility] 06-02-2024 14:33-0400 Heart rate 68 /min MD Helen Heath Work Phone: [facility] 06-02-2024 14:33-0400 Respiratory rate 16 /min MD Helen Heath Work Phone: [facility] 06-02-2024 14:33-0400 SaO2% (BldA) [Mass fraction] 98 % MD Helen Heath Work Phone: [facility] 06-02-2024 14:33-0400 Systolic blood pressure 144 mm[Hg] MD Helen Heath Work Phone: [facility] 03-08-2024 13:29-0400 Body height 175.26 cm MD Helen Heath Work Phone: [facility] 03-08-2024 13:29-0400 Body mass index (BMI) [Ratio] 29.7 kg/m2 MD Helen Hetah Work Phone: [facility] 03-08-2024 13:29-0400 Body temperature 96.4 [degF] MD Helen Heath Work Phone: [facility] 03-08-2024 13:29-0400 Body weight 91.22 kg MD Helen Heath Work Phone: [facility] 03-08-2024 13:29-0400 Diastolic blood pressure 72 mm[Hg] MD Helen Heath Work Phone: [facility] 03-08-2024 13:29-0400 Heart rate 82 /min MD Helen Heath Work Phone: [facility] 03-08-2024 13:29-0400 Respiratory rate 18 /min MD Helen Heath Work Phone: [facility] 03-08-2024 13:29-0400 SaO2% (BldA) [Mass fraction] 98 % MD Helen Heath Work Phone: [facility] 03-08-2024 13:29-0400 Systolic blood pressure 137 mm[Hg] MD Helen Heath Work Phone: [facility] 2024 12:57-0400 Body height 175.26 cm MD Helen Heath Work Phone: [facility] 2024 12:57-0400 Body mass index (BMI) [Ratio] 30.1 kg/m2 MD Helen Heath Work Phone: [facility] 2024 12:57-0400 Body temperature 97.8 [degF] MD Helen Heath Work Phone: [facility] 2024 12:57-0400 Body weight 92.53 kg MD Helen Heath Work Phone: [facility] 2024 12:57-0400 Diastolic blood pressure 65 mm[Hg] MD Helen Heath Work Phone: [facility] 2024 12:57-0400 Heart rate 80 /min MD Helen Heath Work Phone: [facility] 2024 12:57-0400 Respiratory rate 16 /min MD Helen Heath Work Phone: [facility] 2024 12:57-0400 SaO2% (BldA) [Mass fraction] 98 % MD Helen Heath Work Phone: [facility] 2024 12:57-0400 Systolic blood pressure 130 mm[Hg] MD Helen Heath Work Phone: [facility] 01-28-2024 10:37-0400 Body temperature 98.6 [degF] Orquidea Lue [facility] 01-28-2024 10:37-0400 Diastolic blood pressure 67 mm[Hg] Orquidea Lue [facility] 01-28-2024 10:37-0400 Heart rate 68 /min Orquidae Lue [facility] 01-28-2024 10:37-0400 Respiratory rate 16 /min Orquidea Lue [facility] 01-28-2024 10:37-0400 Systolic blood pressure 132 mm[Hg] Orquidea Cortez [facility] 01-22-2024 12:00-0400 Body temperature 98.1 [degF] MD Helen Heath Work Phone: [facility] 01-22-2024 12:00-0400 Diastolic blood pressure 55 mm[Hg] MD Helen Heath Work Phone: [facility] 01-22-2024 12:00-0400 Heart rate 73 /min MD Helen Heath Work Phone: [facility] 01-22-2024 12:00-0400 Respiratory rate 16 /min MD Helen Heath Work Phone: [facility] 01-22-2024 12:00-0400 SaO2% (BldA) [Mass fraction] 96 % MD Helen Heath Work Phone: [facility] 01-22-2024 12:00-0400 Systolic blood pressure 155 mm[Hg] MD Helen Heath Work Phone: [facility] 01-22-2024 06:00-0400 Body weight 92.6 kg MD Helen Heath Work Phone: [facility] 01-21-2024 16:34-0400 Body height 177.8 cm MD Helen Heath Work Phone: [facility] 01-19-2024 18:10-0400 Diastolic blood pressure 75 mm[Hg] MD Helen Heath Work Phone: [facility] 01-19-2024 18:10-0400 Heart rate 67 /min MD Helen Heath Work Phone: [facility] 01-19-2024 18:10-0400 Respiratory rate 18 /min MD Helen Heath Work Phone: [facility] 01-19-2024 18:10-0400 SaO2% (BldA) [Mass fraction] 100 % MD Helen Heath Work Phone: [facility] 01-19-2024 18:10-0400 Systolic blood pressure 134 mm[Hg] MD Helen Heath Work Phone: [facility] 01-19-2024 13:47-0400 Body height 177.8 cm MD Helen Heath Work Phone: [facility] 01-19-2024 13:47-0400 Body temperature 97.7 [degF] MD Helen Heath Work Phone: [facility] 01-19-2024 13:47-0400 Body weight 91.2 kg MD Helen Heath Work Phone: [facility] 10-26-2023 15:19-0400 Body height 180.34 cm MD Helen Heath Work Phone: [facility] 10-26-2023 15:19-0400 Body mass index (BMI) [Ratio] 28.9 kg/m2 MD Helen Heath Work Phone: [facility] 10-26-2023 15:19-0400 Body temperature 96.1 [degF] MD Helen Heath Work Phone: [facility] 10-26-2023 15:19-0400 Body weight 94.06 kg MD Helen Heath Work Phone: [facility] 10-26-2023 15:19-0400 Diastolic blood pressure 73 mm[Hg] MD Helen Heath Work Phone: [facility] 10-26-2023 15:19-0400 Heart rate 89 /min MD Helen Heath Work Phone: [facility] 10-26-2023 15:19-0400 Respiratory rate 18 /min MD Helen Heath Work Phone: [facility] 10-26-2023 15:19-0400 SaO2% (BldA) [Mass fraction] 97 % MD Helen Heath Work Phone: [facility] 10-26-2023 15:19-0400 Systolic blood pressure 123 mm[Hg] MD Helen Heath Work Phone: [facility] 10-01-2023 13:59-0500 Body height 180.34 cm MD Helen Heath Work Phone: [facility] 10-01-2023 13:59-0500 Body mass index (BMI) [Ratio] 29.1 kg/m2 MD Helen Heath Work Phone: [facility] 10-01-2023 13:59-0500 Body temperature 97.2 [degF] MD Helen Heath Work Phone: [facility] 10-01-2023 13:59-0500 Body weight 94.8 kg MD Helen Heath Work Phone: [facility] 10-01-2023 13:59-0500 Diastolic blood pressure 67 mm[Hg] MD Helen Heath Work Phone: [facility] 10-01-2023 13:59-0500 Heart rate 96 /min MD Helen Heath Work Phone: [facility] 10-01-2023 13:59-0500 Respiratory rate 16 /min MD Helen Heath Work Phone: [facility] 10-01-2023 13:59-0500 SaO2% (BldA) [Mass fraction] 96 % MD Helen Heath Work Phone: [facility] 10-01-2023 13:59-0500 Systolic blood pressure 118 mm[Hg] MD Helen Heath Work Phone: [facility] 07-22-2023 09:17-0500 Blood Pressure Location Orquidea Cortez [facility] 07-22-2023 09:17-0500 Diastolic blood pressure 84 mm[Hg] Orquidea Cortez [facility] 07-22-2023 09:17-0500 Heart rate 74 /min Orquidea Lue [facility] 07-22-2023 09:17-0500 Systolic blood pressure 128 mm[Hg] Orquidea Lue [facility] 05-28-2023 13:35-0400 Body temperature 97.8 [degF] MD Helen Heath Work Phone: [facility] 05-28-2023 13:35-0400 Body weight 97.06 kg MD Helen Heath Work Phone: [facility] 05-28-2023 13:35-0400 Diastolic blood pressure 72 mm[Hg] MD Helen Heath Work Phone: [facility] 05-28-2023 13:35-0400 Heart rate 85 /min MD Helen Heath Work Phone: [facility] 05-28-2023 13:35-0400 Respiratory rate 16 /min MD Helen Heath Work Phone: [facility] 05-28-2023 13:35-0400 SaO2% (BldA) [Mass fraction] 99 % MD Helen Heath Work Phone: [facility] 05-28-2023 13:35-0400 Systolic blood pressure 129 mm[Hg] MD Helen Heath Work Phone: [facility] 02-13-2023 08:57-0400 Blood Pressure Location Orquidea Lue [facility] 02-13-2023 08:57-0400 Diastolic blood pressure 83 mm[Hg] Orquidea Lue [facility] 02-13-2023 08:57-0400 Heart rate 67 /min Orquidea Lue [facility] 02-13-2023 08:57-0400 Systolic blood pressure 166 mm[Hg] Orquidea Cortez [facility] 02-11-2023 12:28-0400 Body height 175.3 cm Pacc 2 Work Phone: [facility] 02-11-2023 12:28-0400 Body temperature 97.7 [degF] Pacc 2 Work Phone: [facility] 02-11-2023 12:28-0400 Body weight 97.98 kg Pacc 2 Work Phone: [facility] 02-11-2023 12:28-0400 Diastolic blood pressure 52 mm[Hg] Pacc 2 Work Phone: [facility] 02-11-2023 12:28-0400 Heart rate 66 /min Pacc 2 Work Phone: [facility] 02-11-2023 12:28-0400 Respiratory rate 16 /min Pacc 2 Work Phone: [facility] 02-11-2023 12:28-0400 SaO2% (BldA) [Mass fraction] 100 % Pacc 2 Work Phone: [facility] 02-11-2023 12:28-0400 Systolic blood pressure 149 mm[Hg] Pacc 2 Work Phone: [facility] 01-22-2023 14:29-0400 Body temperature 97.8 [degF] MD Helen Heath Work Phone: [facility] 01-22-2023 14:29-0400 Body weight 109.31 kg MD Helen Heath Work Phone: [facility] 01-22-2023 14:29-0400 Diastolic blood pressure 80 mm[Hg] MD Helen Heath Work Phone: [facility] 01-22-2023 14:29-0400 Heart rate 68 /min MD Helen Heath Work Phone: [facility] 01-22-2023 14:29-0400 Respiratory rate 16 /min MD Hleen Heath Work Phone: [facility] 01-22-2023 14:29-0400 SaO2% (BldA) [Mass fraction] 98 % MD Helen Heath Work Phone: [facility] 01-22-2023 14:29-0400 Systolic blood pressure 118 mm[Hg] MD Helen Heath Work Phone: [facility] 01-14-2023 14:20-0400 Body height 180.34 cm Aziz Bakisaaks Other [employer] Other 01-14-2023 14:20-0400 Body mass index (BMI) [Ratio] 29.31 kg/m2 Aziz Bakhous Other [employer] Other 01-14-2023 14:20-0400 Body temperature 96.4 [degF] Aziz Bakhous Other [employer] Other 01-14-2023 14:20-0400 Body weight 95.35 kg Aziz Bakhous Other [employer] Other 01-14-2023 14:20-0400 Diastolic blood pressure 79 mm[Hg] Aziz Bakhous Other [employer] Other 01-14-2023 14:20-0400 Respiratory rate 20 /min Aziz Bakhous Other [employer] Other 01-14-2023 14:20-0400 SaO2% (BldA) [Mass fraction] 98 % Aziz Bakhous Other [employer] Other 01-14-2023 14:20-0400 Systolic blood pressure 128 mm[Hg] Price Crain Other [facility] Other 12-19-2022 09:14-0400 Diastolic blood pressure 85 mm[Hg] Orquidea Lue [facility] 12-19-2022 09:14-0400 Mean blood pressure 105 mm[Hg] Orquidea Lue [facility] 12-19-2022 09:14-0400 Systolic blood pressure 145 mm[Hg] Orquidea Lue [facility] 12-19-2022 08:58-0400 Blood Pressure Location Orquidea Lue [facility] 12-19-2022 08:58-0400 Diastolic blood pressure 92 mm[Hg] Orquidea Lue [facility] 12-19-2022 08:58-0400 Heart rate 81 /min Orquidea Lue [facility] 12-19-2022 08:58-0400 Systolic blood pressure 150 mm[Hg] Orquidea Lue [facility] 12-05-2022 11:12-0400 Blood Pressure Location Orquidea Lue [facility] 12-05-2022 11:12-0400 Diastolic blood pressure 68 mm[Hg] Orquidea Lue [facility] 12-05-2022 11:12-0400 Heart rate 70 /min Orquidea Lue [facility] 12-05-2022 11:12-0400 Systolic blood pressure 135 mm[Hg] Orquidea Lue [facility] 11-03-2022 12:47-0400 Blood Pressure Location Orquidea Lue [facility] 11-03-2022 12:47-0400 Diastolic blood pressure 89 mm[Hg] Orquidea Lue [facility] 11-03-2022 12:47-0400 Heart rate 77 /min Orquidea Lue [facility] 11-03-2022 12:47-0400 Systolic blood pressure 165 mm[Hg] Orquidea Lue [facility] 10-16-2022 10:26-0500 Blood Pressure Location Orquidea Lue [facility] 10-16-2022 10:26-0500 Diastolic blood pressure 70 mm[Hg] Orquidea Lue [facility] 10-16-2022 10:26-0500 Heart rate 82 /min Orquidea Lue [facility] 10-16-2022 10:26-0500 Respiratory rate 16 /min Orquidea Lue [facility] 10-16-2022 10:26-0500 Systolic blood pressure 141 mm[Hg] Orquidea Lue [facility] 09-03-2022 08:47-0500 Body temperature 97.9 [degF] MD Helen Heath Work Phone: [facility] 09-03-2022 08:47-0500 Body weight 91.8 kg MD Helen Heath Work Phone: [facility] 09-03-2022 08:47-0500 Diastolic blood pressure 69 mm[Hg] MD Helen Heath Work Phone: [facility] 09-03-2022 08:47-0500 Heart rate 98 /min MD Helen Heath Work Phone: [facility] 09-03-2022 08:47-0500 Respiratory rate 16 /min MD Helen Heath Work Phone: [facility] 09-03-2022 08:47-0500 SaO2% (BldA) [Mass fraction] 99 % MD Helen Heath Work Phone: [facility] 09-03-2022 08:47-0500 Systolic blood pressure 156 mm[Hg] MD Helen Heath Work Phone: [facility] 07-28-2022 10:14-0500 Body temperature 97.8 [degF] MD Helen Heath Work Phone: [facility] 07-28-2022 10:14-0500 Body weight 90.2 kg MD Helen Heath Work Phone: [facility] 07-28-2022 10:14-0500 Diastolic blood pressure 81 mm[Hg] MD Helen Heath Work Phone: [facility] 07-28-2022 10:14-0500 Heart rate 77 /min MD Helen Heath Work Phone: [facility] 07-28-2022 10:14-0500 Respiratory rate 16 /min MD Helen Heath Work Phone: [facility] 07-28-2022 10:14-0500 SaO2% (BldA) [Mass fraction] 98 % MD Helen Heath Work Phone: [facility] 07-28-2022 10:14-0500 Systolic blood pressure 152 mm[Hg] MD Helen Heath Work Phone: [facility] 07-04-2022 13:38-0500 Diastolic blood pressure 79 mm[Hg] Orquidea Lue [facility] 07-04-2022 13:38-0500 Heart rate 83 /min Orquidea Lue [facility] 07-04-2022 13:38-0500 Mean blood pressure 101 mm[Hg] Orquidea Lue [facility] 07-04-2022 13:38-0500 Systolic blood pressure 144 mm[Hg] Orquidea Lue [facility] 06-27-2022 10:17-0500 Body temperature 97.8 [degF] MD Helen Heath Work Phone: [facility] 06-27-2022 10:17-0500 Body weight 89.81 kg MD Helen Heath Work Phone: [facility] 06-27-2022 10:17-0500 Diastolic blood pressure 82 mm[Hg] MD Helen Heath Work Phone: [facility] 06-27-2022 10:17-0500 Heart rate 52 /min MD Helen Heath Work Phone: [facility] 06-27-2022 10:17-0500 Respiratory rate 16 /min MD Helen Heath Work Phone: [facility] 06-27-2022 10:17-0500 SaO2% (BldA) [Mass fraction] 98 % MD Helen Heath Work Phone: [facility] 06-27-2022 10:17-0500 Systolic blood pressure 140 mm[Hg] MD Helen Heath Work Phone: [facility] 06-04-2022 10:59-0400 Blood Pressure Location Orquidea Lue [facility] 06-04-2022 10:59-0400 Diastolic blood pressure 74 mm[Hg] Orquidea Lue [facility] 06-04-2022 10:59-0400 Heart rate 68 /min Orquidea Lue [facility] 06-04-2022 10:59-0400 Respiratory rate 16 /min Orquidea Lue [facility] 06-04-2022 10:59-0400 Systolic blood pressure 130 mm[Hg] Orquidea Lue [facility] 05-23-2022 11:13-0400 Body temperature 97.8 [degF] PHYSICIAN NO [facility] 05-23-2022 11:13-0400 Body weight 98.42 kg PHYSICIAN NO [facility] 05-23-2022 11:13-0400 Diastolic blood pressure 60 mm[Hg] PHYSICIAN NO [facility] 05-23-2022 11:13-0400 Heart rate 78 /min PHYSICIAN NO [facility] 05-23-2022 11:13-0400 Respiratory rate 18 /min PHYSICIAN NO [facility] 05-23-2022 11:13-0400 SaO2% (BldA) [Mass fraction] 98 % PHYSICIAN NO [facility] 05-23-2022 11:13-0400 Systolic blood pressure 164 mm[Hg] PHYSICIAN NO [facility] 04-30-2022 12:10-0400 Diastolic blood pressure 71 mm[Hg] MD Helen Heath Work Phone: [facility] 04-30-2022 12:10-0400 Heart rate 66 /min MD Helen Heath Work Phone: [facility] 04-30-2022 12:10-0400 Respiratory rate 16 /min MD Helen Heath Work Phone: [facility] 04-30-2022 12:10-0400 SaO2% (BldA) [Mass fraction] 97 % MD Helen Hetah Work Phone: [facility] 04-30-2022 12:10-0400 Systolic blood pressure 128 mm[Hg] MD Helen Heath Work Phone: [facility] 04-30-2022 09:30-0400 Body height 180.34 cm MD Helen Heath Work Phone: [facility] 04-30-2022 09:30-0400 Body weight 97.52 kg MD Helen Heath Work Phone: [facility] 02-05-2022 11:50-0400 Body temperature 97.7 [degF] MD Helen Heath Work Phone: [facility] 02-05-2022 11:50-0400 Body weight 92.98 kg MD Helen Heath Work Phone: [facility] 02-05-2022 11:50-0400 Diastolic blood pressure 71 mm[Hg] MD Helen Heath Work Phone: [facility] 02-05-2022 11:50-0400 Heart rate 87 /min MD Helen Heath Work Phone: [facility] 02-05-2022 11:50-0400 Respiratory rate 16 /min MD Helen Heath Work Phone: [facility] 02-05-2022 11:50-0400 SaO2% (BldA) [Mass fraction] 99 % MD Helen Heath Work Phone: [facility] 02-05-2022 11:50-0400 Systolic blood pressure 144 mm[Hg] MD Helen Heath Work Phone: [facility] 01-28-2022 08:48-0400 Blood Pressure Location Patsy Seals Jr. [facility] 01-28-2022 08:48-0400 Diastolic blood pressure 85 mm[Hg] Patsy Seals Jr. [facility] 01-28-2022 08:48-0400 Heart rate 78 /min Patsy Seals Jr. [facility] 01-28-2022 08:48-0400 Respiratory rate 16 /min Patsy Seals Jr. [facility] 01-28-2022 08:48-0400 Systolic blood pressure 164 mm[Hg] Patsy Seals Jr. [facility] 12-10-2021 10:38-0400 Blood Pressure Location Patsy Seals Jr. [facility] 12-10-2021 10:38-0400 Diastolic blood pressure 87 mm[Hg] Patsy Seals Jr. [facility] 12-10-2021 10:38-0400 Heart rate 79 /min Patsy Seals Jr. [facility] 12-10-2021 10:38-0400 Systolic blood pressure 142 mm[Hg] Patsy Seals Jr. [facility] 10-29-2021 16:00-0400 Body height 180.34 cm Price Crain Other [employer] Other 10-29-2021 16:00-0400 Body mass index (BMI) [Ratio] 27.67 kg/m2 Price Fords Other [employer] Other 10-29-2021 16:00-0400 Body temperature 96.1 [degF] Price Crain Other [employer] Other 10-29-2021 16:00-0400 Body weight 89.99 kg Price Fords Other [employer] Other 10-29-2021 16:00-0400 Diastolic blood pressure 67 mm[Hg] Price Fords Other [employer] Other 10-29-2021 16:00-0400 Respiratory rate 20 /min Price Fords Other [employer] Other 10-29-2021 16:00-0400 SaO2% (BldA) [Mass fraction] 97 % Price Fords Other [employer] Other 10-29-2021 16:00-0400 Systolic blood pressure 116 mm[Hg] Price Fords Other [employer] Other 05-30-2021 14:41-0400 Body height 177.8 cm MD Helen Heath Work Phone: [facility] Encounters Encounter Date Encounter Type Care Provider Facility Start: 04-13-2025 End: 04-13-2025 Telephone encounter Piero Huddleston RN [facility] Radiol [facility]gy Procedure Comment on above: IR Outpatient Tube A ppointment Request Patient Update Start: 04-13-2025 End: 04-13-2025 ambulatory MANSOOR RASCON Facility:[facility] Start: 04-05-2025 End: 04-05-2025 External Result Encounter Brook Huddleston MD Work Phone: [facility] External Department Unsolicited Start: 04-05-2025 End: 04-05-2025 External Result Encounter Brook Huddleston MD Work Phone: [facility] External Department Unsolicited Start: 04-05-2025 End: 04-05-2025 Telephone encounter Stanford Saldivar RN [facility] Radiol [facility] Procedure Comment on above: Radiology Pre Proced ure Instructions Start: 04-05-2025 Registered Recurring Brook Marrero MD [facility] Work Phone: Start: 04-05-2025 End: 04-05-2025 Patient encounter procedure Carito ZEPEDA-C -[facility] [place] Work Phone: Start: 04-05-2025 End: 04-05-2025 ambulatory Helen Heath MD Work Phone: [facility] Work Phone: Start: 03-28-2025 End: 03-28-2025 ambulatory Pratima Shadia Facility:[facility] Start: 03-28-2025 End: 03-28-2025 Patient encounter procedure Pratima Shadia [facility] Start: 03-27-2025 End: 03-27-2025 ambulatory Orquidea Marrero. Rlaphe Facility:[facility] Start: 03-27-2025 End: 03-27-2025 Patient encounter procedure Orquidea M. Lue [facility] Start: 03-20-2025 End: 03-20-2025 Telephone encounter Jesus Clement RN Angio Comment on above: Follow Up Start: 03-16-2025 End: 04-06-2025 Telephone encounter Zohra Council RN [facility]iol [facility] Procedure Comment on above: IR Outpatient Tube A ppointment Request Opened In Error Start: 03-16-2025 End: 03-16-2025 ambulatory DAX LEIDY Facility:[facility] Start: 03-15-2025 ambulatory Pratima Shadia [facility] Start: 03-08-2025 End: 03-08-2025 E-mail encounter from caregiver [facility] Provider [facility] Radiology Procedure Start: 03-08-2025 End: 03-08-2025 Patient encounter procedure [facility] Provider [facility] Radiology Procedure Comment on above: You are scheduled fo r a Nephrostomy Tube Placement, on Sunday March 16, 2025 Start: 03-08-2025 End: 03-08-2025 Telephone encounter Marisol Ventura RN [facility]iol [facility] Procedure Comment on above: Radiology Pre Proced ure Instructions Start: 03-07-2025 End: 03-07-2025 ambulatory Orquidea Cortez [facility] Start: 03-04-2025 End: 03-04-2025 ambulatory TEAGAN COTTON Facility:[facility] Start: 03-03-2025 End: 03-03-2025 ambulatory Orquidea Cortez [facility] Start: 02-24-2025 End: 02-24-2025 Telephone encounter Bibiana EASLEY [facility] Comment on above: neph tube placement Start: 02-23-2025 End: 02-23-2025 ambulatory Orquidea Cortez Facility:[facility] [place] Start: 02-23-2025 End: 02-23-2025 Patient encounter procedure Orquidea Cortez [facility] [place] Start: 02-22-2025 End: 02-22-2025 ambulatory Pratima Reno Facility[place] Start: 02-22-2025 End: 02-22-2025 Patient encounter procedure Pratima Allena [facility] [place] Start: 02-08-2025 End: 02-09-2025 External Result Encounter Brook Huddleston MD Work Phone: [facility] External Department Unsolicited Start: 02-08-2025 End: 02-09-2025 External Result Encounter Brook Huddleston MD Work Phone: [facility] External Department Unsolicited Start: 02-08-2025 End: 02-08-2025 ambulatory Helen Heaht MD Work Phone: [facility] Work Phone: Start: 02-08-2025 End: 02-08-2025 Patient encounter procedure Brook Marrero MD -[facility] Amb[facility] Work Phone: Start: 02-08-2025 End: 02-08-2025 Brook Marrero MD -[facility] Work Phone: Start: 02-01-2025 End: 02-01-2025 ambulatory Pratima Reno Facility:[facility] Start: 02-01-2025 End: 02-01-2025 Patient encounter procedure Pratima Allena [facility] Start: 01-30-2025 End: 02-01-2025 External Result Encounter Brook Huddleston MD Work Phone: [facility] External [facility] Unsolicited Start: 01-30-2025 End: 02-01-2025 External Result Encounter Brook Huddleston MD Work Phone: [facility] External Department Unsolicited Start: 01-11-2025 End: 01-11-2025 External Result Encounter Brook Huddleston MD Work Phone: [facility] External Department Unsolicited Start: 01-11-2025 End: 01-11-2025 External Result Encounter Brook Huddleston MD Work Phone: [facility] External Department Unsolicited Start: 01-11-2025 End: 01-11-2025 ambulatory Pratima Allena [facility] Start: 01-11-2025 End: 01-11-2025 Lab Drop off Pratima Reno [facility] Start: 01-11-2025 End: 01-11-2025 ambulatory Pratima Allena Facility:[facility] Start: 01-11-2025 End: 01-11-2025 Patient encounter procedure Pratima Reno [facility] Start: 01-03-2025 End: 01-03-2025 Price Crain MD -[facility] Work Phone: Start: 12-28-2024 End: 12-28-2024 Patient encounter procedure Helen Heath MD Work Phone: [facility] [place] Work Phone: Start: 12-28-2024 End: 12-28-2024 Price Crain MD -[facility] [place] Work Phone: Start: 12-28-2024 End: 12-28-2024 ambulatory Helen Heath MD Work Phone: [facility] Work Phone: Start: 12-21-2024 End: 12-21-2024 Lab Drop off Pratima Reno [facility] Start: 12-21-2024 End: 12-21-2024 ambulatory Pratima Reno [facility] Start: 12-14-2024 End: 12-14-2024 External Result Encounter Brook Huddleston MD Work Phone: [facility] External Department Unsolicited Start: 12-14-2024 End: 12-14-2024 External Result Encounter Brook Huddleston MD Work Phone: [facility] External Department Unsolicited Start: 12-14-2024 End: 12-14-2024 Patient encounter procedure Helen Heath MD Work Phone: [facility] [place] Work Phone: Start: 12-14-2024 End: 12-14-2024 Orquidea Marrero MD -[facility] [place] Work Phone: Start: 12-14-2024 End: 12-14-2024 ambulatory Helen Heath MD Work Phone: [facility] Work Phone: Start: 12-14-2024 Registered Recurring Helen ro[facility]iguez [facility] Work [facility]: Start: 11-30-2024 End: 11-30-2024 ambulatory Pratima Allena Facility:[facility] [place] Start: 11-17-2024 End: 11-17-2024 ambulatory Orquidea Cortez Facility:[facility] Start: 11-11-2024 End: 11-11-2024 External Result Encounter Brook Huddleston MD Work Phone: [facility] External Department Unsolicited Start: 11-11-2024 End: 11-11-2024 External Result Encounter Brook Huddleston MD Work Phone: [facility] External Department Unsolicited Start: 11-11-2024 End: 11-11-2024 Patient encounter procedure Helen Heath MD Work Phone: [facility] [place] Work Phone: Start: 11-11-2024 End: 11-11-2024 Helen Heath MD -[facility] [place] Work Phone: Start: 11-11-2024 End: 11-11-2024 ambulatory Helen Heath MD Work Phone: [facility] Work Phone: Start: 11-11-2024 Registered Recurring Helen rodriguez MD [facility] Work [facility]: Start: 11-09-2024 End: 11-09-2024 ambulatory Helen Heath MD Work Phone: [facility] Work Phone: Start: 11-09-2024 End: 11-09-2024 Departed Referred Helen Heath MD Work Phone: [facility] Start: 11-09-2024 End: 11-09-2024 ambulatory Orquidea Cortez Facility::[id number] Start: 11-07-2024 End: 11-08-2024 ambulatory Makayla X Orzech [facility] Start: 11-07-2024 End: 11-08-2024 Lab Drop off Makayla X Orzech [facility] Start: 11-07-2024 End: 11-07-2024 ambulatory Santi SCHWARTZ Facility:[facility] [place] Start: 10-21-2024 End: 10-21-2024 ambulatory Pratima Allena Facility:[facility] [place] Start: 10-17-2024 End: 10-17-2024 ambulatory Helen Heath MD Work Phone: [facility] Work Phone: Start: 10-17-2024 End: 10-17-2024 Departed Referred Helen Heath MD Work Phone: [facility] Start: 10-06-2024 Registered Recurring Helen rodriguez MD Work Phone: [facility] Work Phone: Start: 10-06-2024 End: 10-06-2024 ambulatory Helen Heath MD Work Phone: [facility] Work Phone: Start: 10-06-2024 End: 10-06-2024 Patient encounter procedure Helen Heath MD Work Phone: [facility] Work Phone: Start: 10-04-2024 End: 10-04-2024 ambulatory Helen Heath MD Work Phone: [facility] Work Phone: Start: 10-04-2024 End: 10-04-2024 Patient encounter procedure Helen Heath MD Work Phone: [facility] Work Phone: Start: 09-27-2024 End: 09-29-2024 External Result Encounter Brook Huddleston MD Work Phone: [facility] External Department Unsolicited Start: 09-27-2024 End: 09-29-2024 External Result Encounter Brook Huddleston MD Work Phone: [facility] External Department Unsolicited Start: 09-27-2024 Registered Recurring Helen rodriguez MD Work Phone: [facility] Work Phone: Start: 09-27-2024 End: 09-27-2024 Patient encounter procedure Helen Heath MD Work Phone: [facility] [place] Work Phone: Start: 09-27-2024 End: 09-27-2024 ambulatory Helen Heath MD Work Phone: [facility] Work Phone: Start: 09-21-2024 End: 09-21-2024 External Result Encounter Brook Huddleston MD Work Phone: [facility] External Department Unsolicited Start: 09-21-2024 End: 09-21-2024 External Result Encounter Brook Huddleston MD Work Phone: [facility] External Department Unsolicited Start: 09-08-2024 End: 09-08-2024 Lab Drop off Makayla X Orzech [facility] Start: 09-08-2024 End: 09-08-2024 ambulatory Makayla X Orzech Facility:[facility] Start: 09-08-2024 End: 09-08-2024 Patient encounter procedure Makayla X Orzech [facility] Start: 09-06-2024 ambulatory KENNETH GRAYRY Facility:[facility] Start: 08-31-2024 End: 08-31-2024 ambulatory Orquidea Cortez Facility:[facility] Start: 08-31-2024 End: 08-31-2024 Patient encounter procedure Orquidea Cortez [facility] Start: 08-24-2024 End: 08-24-2024 External Result Encounter Brook Huddleston MD Work Phone: [facility] External Department Unsolicited Start: 08-24-2024 End: 08-24-2024 External Result Encounter Brook Huddleston MD Work Phone: [facility] External Department Unsolicited Start: 08-16-2024 End: 08-16-2024 ambulatory Makayla X Orzech [facility] Start: 08-16-2024 End: 08-16-2024 Lab Drop off Makayla X Orzech [facility] Start: 08-16-2024 End: 08-16-2024 ambulatory Makayla X Orzech Facility:[facility] Start: 08-16-2024 End: 08-16-2024 Patient encounter procedure Makayla X Orzech [facility] Start: 08-09-2024 End: 08-09-2024 ambulatory [facility] Orzech [facility] Start: 08-09-2024 End: 08-09-2024 Patient encounter procedure Makayla X Orzech [facility] Start: 08-03-2024 End: 08-03-2024 Patient encounter procedure Helen Heath MD Work Phone: [facility] Nephrology [place] Work Phone: Start: 08-01-2024 End: 08-01-2024 External Result Encounter Brook Huddleston MD Work Phone: [facility] External Department Unsolicited Start: 08-01-2024 End: 08-01-2024 External Result Encounter Brook Huddleston MD Work Phone: [facility] External Department Unsolicited Start: 07-28-2024 Evaluation and management of inpatient [facility] Start: 07-27-2024 [facility] Start: 07-25-2024 [facility] Start: 07-24-2024 Evaluation and management of inpatient YONATHAN LOVEMikaela [facility] Start: 07-24-2024 End: 07-30-2024 Evaluation and management of inpatient PHELAN TORISteven [facility] Start: 07-20-2024 End: 07-20-2024 ambulatory Orquidea Cortez Facility:[facility] Start: 07-20-2024 End: 07-20-2024 Patient encounter procedure Orquidea Cortez [facility] Start: 07-12-2024 End: 07-12-2024 ambulatory Makayla X Orzech Facility:[facility] Start: 07-12-2024 End: 07-12-2024 Patient encounter procedure Makayla X Orzech [facility] Start: 06-29-2024 End: 06-29-2024 ambulatory Helen Heath MD Work Phone: [facility] Work Phone: Start: 06-29-2024 End: 06-29-2024 Helen Heath MD Work Phone: [facility] Nephrology [place] Work Phone: Start: 06-23-2024 End: 06-23-2024 External Result Encounter Brook Huddleston MD Work Phone: [facility] External Department Unsolicited Start: 06-23-2024 End: 06-23-2024 External Result Encounter Brook Huddleston MD Work Phone: [facility] External Department Unsolicited Start: 06-23-2024 End: 06-23-2024 Helen Heath MD Work Phone: [facility] Work Phone: Start: 06-23-2024 End: 06-23-2024 ambulatory Helen Heath MD Work Phone: [facility] Work Phone: Start: 06-21-2024 End: 06-21-2024 ambulatory Makayla X Orzech Facility:[facility] Start: 06-21-2024 End: 06-21-2024 Patient encounter procedure Makayla X Orzech [facility] Start: 06-10-2024 End: 06-10-2024 ambulatory Orquidea Janes. Ralphe Facility:[facility] [place] Start: 06-10-2024 End: 06-10-2024 Patient encounter procedure Orquidea Cortez [facility] Start: 06-08-2024 End: 06-08-2024 Helen Heath MD Work Phone: [facility] [place] Work Phone: Start: 06-08-2024 End: 06-08-2024 ambulatory MD Helen Heath Work Phone: [facility] Work Phone: Start: 06-08-2024 End: 06-08-2024 Patient encounter procedure MD Helen Heath Work Phone: [facility] [place] Work Phone: Start: 06-03-2024 Non-patient / Non-visit MD Vipin Heath Work Phone: [facility] Nephrology [place] Work Phone: Start: 06-03-2024 Helen Heath MD Work Phone: [facility] Nephrology [place] Work Phone: Start: 06-02-2024 End: 06-05-2024 Helen Heath MD Work Phone: [facility] [place] [facility] Work Phone: Start: 06-02-2024 End: 06-05-2024 Evaluation and management of inpatient MD Helen Heath Work Phone: [facility] [place] [facility] Work Phone: Start: 06-02-2024 End: 06-04-2024 ambulatory MD Helen Heath Work Phone: [facility] Work Phone: Start: 06-02-2024 End: 06-02-2024 Patient encounter procedure MD Helen Heath Work Phone: [facility] Work Phone: Start: 06-02-2024 End: 06-02-2024 Helen Heath MD Work Phone: [facility] Work Phone: Start: 06-02-2024 End: 06-02-2024 External Result Encounter Brook Huddleston MD Work Phone: [facility] External Department Unsolicited Start: 06-02-2024 End: 06-02-2024 External Result Encounter Brook Huddleston MD Work Phone: [facility] External Department Unsolicited Start: 06-02-2024 Registered Recurring MD Inderjit Heath Work Phone: [facility] Work Phone: Start: 06-01-2024 End: 06-01-2024 ambulatory MD Helen Heath Work Phone: [facility] Work Phone: Start: 06-01-2024 End: 06-01-2024 Departed Referred MD Helen Heath Work Phone: [facility] Start: 06-01-2024 Registered Referred MD Helen Heath Work Phone: [facility] Start: 06-01-2024 End: 06-01-2024 Helen Heath MD Work Phone: [facility] Start: 06-01-2024 End: 06-01-2024 ambulatory Orquidea Cortez Facility:[facility] Start: 06-01-2024 End: 06-01-2024 Off-Site Orquidea Cortez [facility] Start: 05-20-2024 End: 05-24-2024 External Result Encounter Brook Huddleston MD Work Phone: [facility] External Department Unsolicited Start: 05-20-2024 End: 05-24-2024 External Result Encounter Brook Huddleston MD Work Phone: [facility] External Department Unsolicited Start: 05-17-2024 End: 05-17-2024 External Result Encounter Brook Huddleston MD Work Phone: [facility] External Department Unsolicited Start: 05-17-2024 End: 05-17-2024 External Result Encounter Brook Huddleston MD Work Phone: [facility] External Department Unsolicited Start: 05-17-2024 End: 05-17-2024 ambulatory Makayla X Orzech Facility:[facility] Start: 05-17-2024 End: 05-17-2024 Patient encounter procedure Makayla X Orzech [facility] Start: 05-06-2024 End: 05-06-2024 External Result Encounter Brook Huddleston MD Work Phone: [facility] External Department Unsolicited Start: 05-06-2024 End: 05-06-2024 External Result Encounter Brook Huddleston MD Work Phone: [facility] External Department Unsolicited Start: 04-26-2024 End: 04-26-2024 ambulatory Makayla X Orzech Facility:[facility] Start: 04-26-2024 End: 04-26-2024 Patient encounter procedure Makayla X Orzech [facility] Start: 04-22-2024 End: 04-22-2024 External Result Encounter Brook Huddleston MD Work Phone: [facility] External Department Unsolicited Start: 04-22-2024 End: 04-22-2024 External Result Encounter Brook Huddleston MD Work Phone: [facility] External Department Unsolicited Start: 04-19-2024 End: 04-19-2024 Lab Drop off Makayla X Orzech [facility] Start: 04-19-2024 End: 04-19-2024 ambulatory Makayla X Orzech [facility] Start: 04-19-2024 End: 04-19-2024 Patient encounter procedure Makayla X Orzech [facility] Start: 04-08-2024 End: 04-08-2024 External Result Encounter Brook Huddleston MD Work Phone: [facility] External Department Unsolicited Start: 04-08-2024 End: 04-08-2024 External Result Encounter Brook Huddleston MD Work Phone: [facility] External Department Unsolicited Start: 04-05-2024 End: 04-05-2024 ambulatory Makayla X Orzech Facility:[facility] Start: 04-05-2024 End: 04-05-2024 Patient encounter procedure Makayla X Orzech [facility] Start: 03-15-2024 End: 03-15-2024 Lab Drop off Makayla X Orzech [facility] Start: 03-15-2024 End: 03-15-2024 ambulatory Makayla X Orzech [facility] Start: 03-15-2024 End: 03-15-2024 Patient encounter procedure Makayla X Orzech [facility] Start: 03-08-2024 End: 03-08-2024 ambulatory MD Helen Heath Work Phone: [facility] Work Phone: Start: 03-08-2024 End: 03-08-2024 Patient encounter procedure MD Helen Heath Work Phone: [facility] Work Phone: Start: 03-08-2024 Registered Recurring MD Inderjit Heath [facility] Work [facility]: Start: 02-29-2024 Registered Recurring MD Inderjit Heath [facility]: [facility] Work [facility]: Start: 02-29-2024 End: 02-29-2024 ambulatory MD Helen Heath Work Phone: [facility] Work Phone: Start: 02-29-2024 End: 02-29-2024 Patient encounter procedure MD Helen Heath Work Phone: [facility] [place] Work Phone: Start: 02-25-2024 End: 02-25-2024 ambulatory MD Helen Heath Work Phone: [facility] Work Phone: Start: 02-25-2024 End: 02-25-2024 Patient encounter procedure MD Helen Heath Work Phone: [facility] [place] Work Phone: Start: 02-24-2024 End: 02-24-2024 ambulatory Orquidea Cortez Facility:[facility] Start: 02-24-2024 End: 02-24-2024 Patient encounter procedure Orquidea Cortez [facility] Start: 02-19-2024 Registered Recurring MD Inderjit Heath [facility]: [facility] Work [facility]: Start: 2024 End: 2024 ambulatory MD Helen Heath Work Phone: [facility] Work Phone: Start: 2024 End: 2024 Patient encounter procedure MD Helen Heath [facility]: [facility] [place] [facility] Work Phone: Start: 02-03-2024 End: 02-03-2024 ambulatory Orquidea Cortez Facility:[facility] [place] Start: 02-03-2024 End: 02-03-2024 Off-Site Orquidea Cortez [facility] Start: 01-28-2024 End: 01-28-2024 ambulatory Orquidea MChay Diego Facility: [facility] Start: 01-28-2024 End: 01-28-2024 Patient encounter procedure Orquidea Cortez [facility] Start: 01-21-2024 End: 01-22-2024 Non-patient / Non-visit MD Helen Heath Work Phone: [facility] Work Phone: Start: 01-21-2024 End: 01-21-2024 ambulatory Delmar Wilburn Facility:[id number] Start: 01-19-2024 End: 01-22-2024 Evaluation and management of inpatient MD Helen Heath Work Phone: [facility] [place] [facility] Work Phone: Start: 01-18-2024 End: 01-18-2024 ambulatory Makayla X Orzech [facility] Start: 01-18-2024 End: 01-18-2024 Lab Drop off Makayla X Orzech [facility] Start: 01-18-2024 End: 01-18-2024 ambulatory Orquidea MChay Mercadoheena Facility: [facility] Start: 01-18-2024 End: 01-18-2024 Patient encounter procedure Orquidea Cortez [facility] Start: 01-08-2024 End: 01-08-2024 Lab Drop off Santi SCHWARTZ [facility] Start: 01-08-2024 End: 01-08-2024 ambulatory Santi SCHWARTZ [facility] Start: 01-08-2024 End: 01-08-2024 Patient encounter procedure Santi SCHWARTZ [facility] Start: 12-18-2023 Registered Recurring MD Inderjit Heath Work Phone: [facility] [place] [facility] Work Phone: Start: 12-18-2023 End: 12-18-2023 ambulatory Santi SCHWARTZ Facility: [facility] Start: 12-18-2023 End: 12-18-2023 Patient encounter procedure Santi SCHWARTZ [facility] Start: 12-09-2023 End: 12-09-2023 Lab Drop off Nancie J Galea [facility] Start: 12-09-2023 End: 12-09-2023 ambulatory Nancie J Galea [facility] Start: 12-09-2023 End: 12-09-2023 Patient encounter procedure KEN HELTON [facility] Start: 11-25-2023 End: 11-25-2023 ambulatory Santi SHCWARTZ Facility:[facility] [place] Start: 11-25-2023 End: 11-25-2023 Patient encounter procedure Santi SCHWARTZ [facility] Start: 11-04-2023 End: 11-04-2023 ambulatory MD Helen Heath Work Phone: [facility] Work Phone: Start: 11-04-2023 End: 11-04-2023 Patient encounter procedure Santi SCHWARTZ [facility] [place] Start: 10-29-2023 Registered Recurring MD Inderjit Heath [facility]: [facility] Work [facility]: Start: 10-26-2023 End: 10-26-2023 Patient encounter procedure MD Helen Heath Work Phone: [facility] Work Phone: Start: 10-26-2023 End: 10-26-2023 Patient encounter procedure MD Helen Heath Work Phone: [facility] [place] Work Phone: Start: 10-12-2023 End: 10-12-2023 ambulatory Santi SCHWARTZ Facility:[facility] Start: 10-01-2023 End: 10-01-2023 ambulatory MD Helen Heath Work Phone: [facility] Work Phone: Start: 10-01-2023 End: 10-01-2023 Patient encounter procedure MD Helen Heath Work Phone: [facility] Work Phone: Start: 10-01-2023 Registered Recurring MD Inderjit Heath [facility]: [facility] Work Phone: Start: 09-28-2023 External Result Encounter Brook Huddleston MD Work Phone: [facility] External Department Unsolicited Start: 09-28-2023 External Result Encounter Brook Huddleston MD Work Phone: [facility] External Department Unsolicited Start: 09-23-2023 End: 09-23-2023 ambulatory Orquidea Cortez Facility:[id number] Start: 09-23-2023 End: 09-23-2023 Off-Site Orquidea M. Lue [facility] Start: 08-31-2023 End: 08-31-2023 ambulatory Jose BURROWS Facility:[facility] Start: 08-31-2023 End: 08-31-2023 Patient encounter procedure Jose Laurie BURROWS [facility] Start: 08-11-2023 End: 08-11-2023 Lab Drop off Orquidea M. Lue [facility] Start: 08-11-2023 End: 08-11-2023 ambulatory Orquidea M. Lue [facility] Start: 08-11-2023 End: 08-11-2023 Patient encounter procedure Orquidea M. Lue [facility] Start: 07-22-2023 End: 07-22-2023 ambulatory Orquidea M. Lue Facility:[facility] Start: 07-22-2023 End: 07-22-2023 Patient encounter procedure Orquidea M. Lue [facility] Start: 07-14-2023 End: 07-14-2023 ambulatory MD Helen Heath Work Phone: [facility] Work Phone: Start: 07-14-2023 End: 07-14-2023 Patient encounter procedure MD Helen Heath Work Phone: [facility] Work Phone: Start: 07-14-2023 Registered Recurring MD Inderjit Heath [facility]: [facility] Work Phone: Start: 07-14-2023 ambulatory Orquidea M. Lue Facility: [facility] Start: 07-02-2023 End: 07-02-2023 Lab Drop off Orquidea M. Lue [facility] Start: 07-02-2023 End: 07-02-2023 ambulatory Orquidea M. Lue [facility] Start: 06-23-2023 End: 06-23-2023 Patient encounter procedure MD Helen Heath Work Phone: [facility] Work Phone: Start: 06-10-2023 End: 06-10-2023 ambulatory Orquidea M. Lue Facility:[id number] Start: 05-28-2023 End: 05-28-2023 Lab Drop off Orquidea M. Lue [facility] Start: 05-28-2023 End: 05-28-2023 ambulatory Orquidea M. Lue [facility] Start: 05-28-2023 End: 05-28-2023 Patient encounter procedure Orquidea M. Lue [facility] [place] Start: 05-19-2023 End: 05-19-2023 ambulatory MD Helen Heath Work Phone: [facility] Work Phone: Start: 05-19-2023 End: 05-19-2023 Patient encounter procedure MD Helen Heath Work Phone: [facility] [place] Work Phone: Start: 05-19-2023 Registered Recurring MD Inderjit Heath [facility]: [facility] Work [facility]: Start: 05-15-2023 End: 05-15-2023 ambulatory Orquidea Cortez Facility:[facility] Start: 05-15-2023 End: 05-15-2023 Patient encounter procedure Orquidea Cortez [facility] Start: 03-18-2023 ambulatory Orquidea Cortez Facility:[facility] Start: 02-25-2023 Refill Jessica kaur MD Work Phone: Urology Comment on above: Refill Request Start: 02-19-2023 Registered Recurring MD Inderjit Heath Work Phone: [facility] Work Phone: Start: 02-19-2023 End: 02-19-2023 ambulatory MD Helen Heath Work Phone: [facility] Work Phone: Start: 02-19-2023 End: 02-19-2023 Patient encounter procedure MD Helen Heath Work Phone: [facility] Work Phone: Start: 02-13-2023 End: 02-13-2023 ambulatory Orquidea Cortez Facility:[facility] Start: 02-13-2023 End: 02-13-2023 Patient encounter procedure Orquidea Cortez [facility] Start: 02-11-2023 End: 02-11-2023 [facility]: [facility] Start: 02-11-2023 End: 02-11-2023 ambulatory Pacc Roland 2 Work Phone: Pre Anesthesia Comment on [...] Start: 02-11-2023 End: 02-11-2023 Preprocedural examination done [facility] Work Phone: Pre Anesthesia Start: 01-19-2023 End: 01-19-2023 ambulatory Samir Aparicio MD Work Phone: Urology Comment on above: Prostate cancer (HCC ) (Primary Dx); Acquired ureteral stricture; Neurogenic bladder; Benign prostatic hyperplasia with urinary obstruction Start: 01-19-2023 End: 01-19-2023 Telemedicine consultation with patient Samir Aparicio MD Work Phone: [facility] Start: 01-16-2023 End: 01-16-2023 Patient encounter procedure Orquidea Cortez [facility] Start: 01-14-2023 End: 01-14-2023 ambulatory Price Crain Other [facility] Other Start: 01-14-2023 Office outpatient vi sit 25 minutes Price Crain [facility] Start: 01-14-2023 Telephone encounter Price Crain [facility] Start: 01-05-2023 End: 01-05-2023 Patient encounter procedure MD Helen Heath Work Phone: [facility] Work Phone: Start: 12-19-2022 End: 12-19-2022 Patient encounter procedure Orquidea Cortez [facility] Start: 12-17-2022 End: 12-17-2022 ambulatory MD Helen Heath Work Phone: [facility] Work Phone: Start: 12-17-2022 End: 12-17-2022 Patient encounter procedure MD Helen Heath Work Phone: [facility] [place] Work Phone: Start: 12-13-2022 Encounter for other preprocedural examination ORQUIDEA CORTEZ [facility] Start: 12-13-2022 Encounter for preprocedural laboratory examination ORQUIDEA CORTEZ [facility] Start: 12-11-2022 Registered Recurring MD Inderjit Heath [facility]: [facility] Work Phone: Start: 12-10-2022 End: 12-10-2022 ambulatory ORQUIDEA CORTEZ Facility:[facility] Start: 12-08-2022 End: 12-09-2022 ambulatory KATINA PATEL Facility:[facility] Start: 12-08-2022 End: 12-09-2022 Encounter for preprocedural laboratory examination KATINA RAMER Facility:[facility] Start: 12-05-2022 End: 12-05-2022 Patient encounter procedure Orquidea Cortez [facility] Start: 12-01-2022 End: 12-01-2022 ambulatory MD Helen Heath Work Phone: [facility] Work Phone: Start: 12-01-2022 End: 12-01-2022 Patient encounter procedure MD Helen Heath Work Phone: [facility] [place] Work Phone: Start: 11-27-2022 Registered Recurring MD Inderjit Heath [facility]: [facility] Work Phone: Start: 11-27-2022 End: 11-27-2022 ambulatory MD Helen Heath Work Phone: [facility] Work Phone: Start: 11-27-2022 End: 11-27-2022 Patient encounter procedure MD Helen Heath Work Phone: [facility] [place] Work Phone: Start: 11-17-2022 End: 11-17-2022 ambulatory MD Helen Heath Work Phone: [facility] Work Phone: Start: 11-17-2022 End: 11-17-2022 Patient encounter procedure MD Helen Heath Work Phone: [facility] [place] Work Phone: Start: 11-13-2022 Registered Recurring MD Inderjit Heath Work Phone: [facility] Work Phone: Start: 11-11-2022 Registered Recurring MD Inderjit Heath Work Phone: [facility] Work Phone: Start: 11-11-2022 End: 11-11-2022 ambulatory MD Helen Heath Work Phone: [facility] Work Phone: Start: 11-11-2022 End: 11-11-2022 Patient encounter procedure MD Helen Heath Work Phone: [facility] [place] Work Phone: Start: 11-10-2022 End: 11-10-2022 Departed Referred MD Helen Heath Work Phone: [facility] [place] Work Phone: Start: 11-03-2022 End: 11-03-2022 Patient encounter procedure Orquidea Cortez [facility] Start: 10-30-2022 End: 10-30-2022 Patient encounter procedure MD Helen Heath Work Phone: [facility] [place] Work Phone: Start: 10-30-2022 Registered Recurring MD Inderjit Heath Work Phone: [facility] Work Phone: Start: 10-30-2022 End: 10-30-2022 ambulatory MD Helen Heath Work Phone: [facility] Work Phone: Start: 10-30-2022 End: 10-30-2022 Patient encounter procedure MD Helen Heath Work Phone: [facility] [place] Work Phone: Start: 10-16-2022 End: 10-16-2022 Patient encounter procedure Orquidea Cortez [facility] Start: 10-14-2022 Registered Recurring MD Inderjit Heath Work Phone: [facility] Work Phone: Start: 10-14-2022 End: 10-14-2022 ambulatory MD Helen Heath Work Phone: [facility] Work Phone: Start: 10-14-2022 End: 10-14-2022 Patient encounter procedure MD Helen Heath Work Phone: [facility] [place] Work Phone: Start: 10-09-2022 End: 10-09-2022 Patient encounter procedure Janae Serna [facility] Start: 10-02-2022 End: 10-02-2022 ambulatory MD Helen Heath Work Phone: [facility] Work Phone: Start: 10-02-2022 End: 10-02-2022 Patient encounter procedure MD Helen Heath Work Phone: [facility]-CT Scan [facility] [place] Work Phone: Start: 10-01-2022 Registered Recurring MD Inderjit Heath Work Phone: [facility] Work Phone: Start: 09-23-2022 End: 09-23-2022 ambulatory MD Helen Heath Work Phone: [facility] Work Phone: Start: 09-23-2022 End: 09-23-2022 Patient encounter procedure MD Helen Heaht Work Phone: [facility] [place] Work Phone: Start: 09-03-2022 End: 09-03-2022 ambulatory MD Helen Heath Work Phone: [facility] Work Phone: Start: 09-03-2022 End: 09-03-2022 Registered Recurring MD Helen Heath Work Phone: [facility] Work Phone: Start: 09-01-2022 End: 09-01-2022 Patient encounter procedure Santi SCHWARTZ [facility] Start: 08-27-2022 End: 08-28-[address] HELEN HEATH Facility: Start: 08-25-2022 End: 08-25-2022 Lab Drop off Orquidea Cortez [facility] Start: 08-25-2022 End: 08-25-2022 Patient encounter procedure Santi SCHWARTZ [facility] Start: 08-23-2022 End: 08-24-[address] HELEN HEATH Facility:H1 Start: 08-19-2022 End: 08-19-2022 Lab Drop off KEN HELTON [facility] Start: 08-19-2022 End: 08-19-2022 Patient encounter procedure KENCONOR HELTON [facility] Start: 08-06-2022 End: 08-06-2022 Patient encounter procedure Orquidea M. Ralphe [facility] Start: 07-30-2022 End: 07-30-2022 ambulatory ORQUIDEA M LUE Facility:H1 Start: 07-28-2022 End: 07-28-2022 ambulatory MD Helen Hetah Work Phone: [facility] Work Phone: Start: 07-28-2022 End: 07-28-2022 Registered Recurring MD Helen Heath Work Phone: [facility] Start: 07-26-2022 End: 07-27-2022 ambulatory ORQUIDEA M LUE Facility:H1 Start: 07-21-2022 Encounter for other preprocedural examination ORQUIDEA M LUE [facility] Start: 07-21-2022 Encounter for preprocedural respiratory examination ORQUIDEA M LUE [facility] Start: 07-17-2022 End: 07-18-2022 ambulatory ORQUIDEA M LUE Facility:H1 Start: 07-17-2022 End: 07-18-2022 Encounter for other preprocedural examination ORQUIDEA M LUE Facility:H1 Start: 07-17-2022 End: 07-18-2022 ambulatory ORQUIDEA M LUE Facility:[facility]1 Start: 07-07-2022 End: 07-07-2022 Patient encounter procedure Orquidea Cortez [facility] Start: 07-04-2022 End: 07-04-2022 Patient encounter procedure Orquidea Cortez [facility] Start: 07-03-[address] Helen Summers lp Don Facility:[facility] Start: 07-01-2022 End: 07-01-2022 Patient encounter procedure Orquidea MChay Cortez [facility] Start: 06-27-2022 End: 06-27-2022 ambulatory MD Helen Heath Work Phone: [facility] Work Phone: Start: 06-27-2022 End: 06-27-2022 Registered Recurring MD [facility] Start: 06-04-2022 End: 06-04-2022 Lab Drop off Orquidea JanesChay Cortez [facility] Start: 06-04-2022 End: 06-04-2022 Patient encounter procedure Orquidea MarreroChay Mercadoheena [facility] Start: 05-23-2022 End: 05-23-2022 ambulatory PHYSICIAN NO [facility] Work Phone: Start: 05-23-2022 End: 05-23-2022 Registered Recur[facility] Start: 05-14-2022 End: 05-14-2022 Patient encounter procedure Orquidea MChay Mercadoheena [facility] Start: 05-07-2022 End: 05-07-[address] HELEN HEATH Facility: Start: 05-06-2022 End: 05-06-2022 Patient encounter procedure Orquidea Cortez [facility] Start: 05-05-2022 End: 05-05-2022 Patient encounter procedure Orquidea Cortez [facility] Start: 04-30-2022 End: 04-30-2022 Admission to same day surgery center MD Helen Heath Work Phone: [facility] [place] Start: 04-23-2022 End: 04-23-2022 Patient encounter procedure MD Helen Heath Work Phone: [facility] [place] Start: 04-18-2022 End: 04-18-2022 Lab Drop off Orquidea Cortez [facility] Start: 04-18-2022 End: 04-18-2022 Patient encounter procedure Orquidea Cortez [facility] Start: 04-16-2022 Registered Recurring MD Inderjit Heath Work Phone: [facility] Start: 04-03-2022 End: 04-03-2022 Patient encounter procedure Patsy Seals Jr. [facility] Start: 03-24-2022 End: 03-24-2022 Departed Referred MD Helen Heath Work Phone: [facility] [place] Start: 02-05-2022 ambulatory DrChay Heath Facility:22 Start: 01-28-2022 End: 01-28-2022 Patient encounter procedure Patsy Seals Jr. [facility] Start: 01-24-2022 Encounter for preprocedural cardiovascular examination DR PATSY Cartwright [facility] Start: 01-24-2022 Encounter for preprocedural laboratory examination DR PATSY Cartwright [facility] Start: 01-14-2022 End: 01-14-[address] PATSY Cartwright Facility:H1 Start: 01-10-[address] HELEN HEATH [facility] ity:H1 Start: 01-09-2022 End: 01-10-[address] PATSY Cartwright Facility:H1 Start: 01-09-2022 End: 01-10-2022 Encounter for preprocedural cardiovascular examination DR PATSY Cartwright Facility: Start: 01-02-[address] Helen Summers new Heath Facility:[id number] Start: 12-23-[address] Helen Heath Facility:[id number] Start: 12-12-[address] Helen Heath Facility:[facility] Start: 12-10-2021 End: 12-10-2021 Patient encounter procedure Patsy Seals Jr. [facility] Start: 11-28-2021 ambulatory WILFREDO VANESSA Facility:[facility] Start: 10-29-2021 End: 10-29-2021 ambulatory Price Crain Other [facility] Other Start: 10-29-2021 Office outpatient vi sit 25 minutes Price Crain [facility] Procedures Date Procedure Procedure Detail Performing Clinician Start: 04-05-2025 Complete blood count with white cell differential, automated Brook Huddleston MD Work Phone: Start: 03-16-2025 Plmt nephrostomy cat h prq new access rs&i Orquidea Cortez Start: 03-07-2025 Cystoscopy Orquidea Cortez Start: 02-08-2025 Culture bacterial quanttative colony count urine Brook Huddleston MD Work Phone: Start: 02-08-2025 Urnls dip stick/tabl et rgnt auto w/o microscopy Brook Huddleston MD Work Phone: Start: 02-08-2025 Urine culture Helen rodriguez MD Work Phone: Start: 01-30-2025 Complete blood count with white cell differential, automated Brook Huddleston MD Work Phone: Start: 01-30-2025 Comprehensive metabo lic panel Brook Huddleston MD Work Phone: Start: 01-30-2025 Serum immunofixation Ri bety Heath MD Work Phone: Comment on above: Immunofixation shows IgG monoclonal protein with kappalight chain specificity. PLEASE NOTE: Samples from patients receiving DARZALEX(R)(daratumumab) or SARCLISA(R)(isatuximab-irfc) treatmentcan appear as an IgG kappa and mask a complete response(CR). If this patient is receiving these therapies, thisIFE assay interference can be removed by ordering testnumber [id number] Immunofixation, Daratumumab-Specific,Serum or [id number] Immunofixation, Isatuximab-Specific,Serum and submitting a new sample for testing or bycalling the lab to add this test to the current sample.Lambda appears asymmetrical. Start: 01-11-2025 Complete blood count with white cell differential, automated Brook Huddleston MD Work Phone: Start: 12-14-2024 Complete blood count with white cell differential, automated Brook Huddleston MD Work Phone: Start: 11-11-2024 Complete blood count with white cell differential, automated Brook Huddleston MD Work Phone: Start: 11-09-2024 Urine culture Helen rodriguez MD Work Phone: Start: 10-17-2024 Urine culture Helen rodriguez MD Work Phone: Start: 09-27-2024 IMMUNOFIXATION, (JOSE C ), URINE Brook Huddleston MD Work Phone: Start: 09-27-2024 Lactate dehydrogenase ldh Brook Huddleston MD Work Phone: Start: 09-27-2024 PROTEIN ELECTRO, RAN DOM URINE Brook Huddleston MD Work Phone: Start: 09-21-2024 X-ray skeletal survey R aj Heath MD Work Phone: Start: 09-21-2024 Complete blood count with white cell differential, automated Brook Huddleston MD Work Phone: Start: 08-24-2024 Complete blood count with white cell differential, automated Brook Huddleston MD Work Phone: Start: 08-01-2024 Complete blood count with white cell differential, automated Brook Huddleston MD Work Phone: Start: 07-28-2024 Change of cystostomy tube Orquidea Diego Comment on above: done at [facility] Start: 06-23-2024 Complete blood count with white cell differential, automated Brook Huddleston MD Work Phone: Start: 06-23-2024 Comprehensive metabo lic panel Brook Huddleston MD Work Phone: Start: 06-04-2024 Cystoscopy MD Helen Heath Work Phone: Start: 06-04-2024 Cystoscopic insertio n of ureteric stent Orquidea Diego Start: 06-02-2024 CT of abdomen and pe lvis without contrast MD Helen Heath Work Phone: Start: 06-02-2024 Bacteria identified in Urine by Culture MD Helen Heath Work Phone: Start: 06-02-2024 Urine culture Helen rodriguez MD Work Phone: Start: 06-02-2024 Complete blood count with white cell differential, automated Brook Huddleston MD Work Phone: Start: 06-02-2024 Comprehensive metabo lic panel Brook Huddleston MD Work Phone: Start: 06-01-2024 Transperineal needle biopsy of prostate Orquidea Luheena Start: 05-20-2024 End: 05-20-2024 Lactate dehydrogenase ldh Brook Huddleston MD Work Phone: Start: 05-20-2024 Complete blood count with white cell differential, automated Brook Huddleston MD Work Phone: Start: 05-17-2024 Complete blood count with white cell differential, automated Brook Huddleston MD Work Phone: Start: 05-17-2024 Comprehensive metabo lic panel Brook Huddleston MD Work Phone: Start: 05-06-2024 Complete blood count with white cell differential, automated Brook Huddleston MD Work Phone: Start: 05-06-2024 Comprehensive metabo lic panel Brook Huddleston MD Work Phone: Start: 04-22-2024 Complete blood count with white cell differential, automated Brook Huddleston MD Work Phone: Start: 04-22-2024 Comprehensive metabo lic panel Brook Huddleston MD Work Phone: Start: 04-08-2024 Complete blood count with white cell differential, automated Brook Huddleston MD Work Phone: Start: 04-08-2024 Comprehensive metabo lic panel Brook Huddleston MD Work Phone: Start: 02-25-2024 MR prostate wo con MD Norah Heath Work Phone: Start: 02-03-2024 Cystoscopic insertio n of ureteric stent Orquidea Luheena Start: 01-20-2024 Ultrasonography of bilateral kidneys MD Helen Heath Work Phone: Start: 01-19-2024 Plain chest X-ray MD Jordan Heath Work Phone: Start: 01-19-2024 Blood culture for bacteria, including anaerobic screen MD Helen Heath Work Phone: Start: 01-19-2024 Screening for occult blood in feces MD Helen Heath Work Phone: Start: 01-19-2024 Stool Occult Blood (DEEPA) MD Helen Heath Work Phone: Start: 01-19-2024 Urine culture MD Inderjit Heath Work Phone: Start: 09-28-2023 Complete blood count with white cell differential, automated Brook Huddleston MD Work Phone: Start: 09-28-2023 Comprehensive metabo lic panel Brook Huddleston MD Work Phone: Start: 09-28-2023 Radiologic examinati on, osseous survey, complete MD Helen Heath Work Phone: Start: 07-14-2023 Diagnostic radiograp hy of abdomen MD Helen Heath Work Phone: Start: 06-10-2023 Cystoscopic replacem ent of ureteric stent Orquidea Cortez Start: 06-10-2023 Extracorporeal shock wave lithotripsy of calculus of kidney Orquidea Cortez Start: 05-19-2023 Diagnostic radiograp hy of abdomen MD Helen Heath Work Phone: Start: 03-05-2023 Cystostomy and inser tion of suprapubic catheter Orquidea Cortez Start: 02-19-2023 Plain X-ray of left hip MD Helen Heath Work Phone: Start: 02-19-2023 X-ray of lumbar spin e, four or more views MD Helen Heath Work Phone: Start: 01-05-2023 Urine culture MD Inderjit Heath Work Phone: Start: 12-17-2022 Ultrasonography of bilateral kidneys MD Helen Heath Work Phone: Start: 12-10-2022 Cystoscopic insertio n of ureteric stent Orquidea Cortez Start: 12-01-2022 Ultrasonography of bilateral kidneys MD Helen Heath Work Phone: Start: 11-27-2022 X-ray of cervical spine MD Helen Heath Work Phone: Start: 11-17-2022 Ultrasonography of bilateral kidneys MD Helen Heath Work Phone: Start: 11-11-2022 MR prostate wo con MD Norah Heath Work Phone: Start: 11-10-2022 Urine culture MD Inderjit Heath Work Phone: Start: 10-30-2022 Ultrasonography of bilateral kidneys MD Helen Heath Work Phone: Start: 10-14-2022 Ultrasonography of bilateral kidneys MD Helen Heath Work Phone: Start: 10-02-2022 CT of abdomen and pe lvis without contrast MD Helen Heath Work Phone: Start: 09-23-2022 Urine culture MD Inderjit Heath Work Phone: Start: 09-23-2022 Diagnostic radiograp hy of abdomen MD Helen Heath Work Phone: Start: 09-23-2022 Ultrasonography of bilateral kidneys MD Helen Heath Work Phone: Start: 08-27-2022 Transurethral prostatectomy Santi SCHWARTZ Start: 05-05-2022 Transurethral insert ion of prostatic urethral lift implant Orquidea Cortez Start: 04-30-2022 Needle biopsy PHYSICIAN NO FAMILY Start: 09-16-2021 Radiologic examinati on, osseous survey, complete MD Helen Heath Work Phone: Start: 09-03-2020 Follow-up visit Start: 03-12-2020 Duplex scan veins of upper limb MD Helen Heath Work Phone: Start: 08-20-2012 Cystoscopic removal of ureteric stent Patsy Seals JrChay Start: 08-05-2012 Cystoscopic anastomo sis of ureter to bladder with insertion of stent into ureter Patsy Seals JrChay Start: 03-02-2009 Extracorporeal shock wave lithotripsy of calculus of kidney Patsy Seals Dental surgical procedure Ka estela Cortez H/O: renal dialysis History of hemodialysis MD Helen Heath Work Phone: H/O: surgery S/P UPPP (uvulopalatopharyngopl asty) MD Helen Heath Work Phone: heel spur Patsy Vandana Cartwright Stem cell transplant Orquidea burgess Urine culture MD Helen love Work Phone: Urine culture MD Helen love Work Phone: Plan of Treatment Date Care Activity Detail Author Start: 06-24-2031 Urine microalbumin profile [facility] Start: 04-05-2026 Complete blood count Hemoglobin/Michael [facility] Start: 03-04-2026 Complete blood count Hemoglobin/Michael [facility] Start: 01-30-2026 Creatinine measurement Serum Creatin ine [facility] Start: 07-30-2025 Creatinine measurement Serum Creatin ine [facility] Start: 04-25-2025 ambulatory Ambulatory Facility:E [facility] Start: 04-17-2025 Influenza vaccination Influenza Vacc ine (#1) [facility] Start: 04-13-2025 End: 04-13-2025 Admission to same day surgery center [facility] Procedure Comment on above: PERC EXCHANGE NEPHRO STOMY CATH, INCLUDING DIAGNOSTIC NEPHROSTOGRAM/URETEROGRAM WHEN PERFORMED,IMAGING GUIDANCE AND ALL ASSOCIATED RAD S&I Start: 04-13-2025 Subsequent hospital visit by physician [facility] Procedure Comment on above: Ureteral 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.5] Start: 04-13-2025 End: 04-13-2025 Exchange nephrostomy catheter prq w/img gid rs&i [facility] Start: 04-05-2025 [facility] Start: 04-05-2025 [facility] Start: 03-16-2025 End: 03-16-2025 Admission to same day surgery center 03/16/2025 8:30 AM EDT - 03/16/2025 10:30 AM EDT [facility] Radiology Procedure [id number] [place] [address] Dax Forbes MD [address] [place] [address] PERC PLACEMENT NEPHROSTOMY CATH,INCLUDING DIAGNOSTIC NEPHROSTOGRAM/URETEROGRA M WHEN PERFORMED,IMAGING GUIDANCE AND ALL ASSOCIATED RAD S&I [facility] Procedure Comment on above: PERC PLACEMENT NEPHR OSTOMY CATH,INCLUDING DIAGNOSTIC NEPHROSTOGRAM/URETEROGRAM WHEN PERFORMED,IMAGING GUIDANCE AND ALL ASSOCIATED RAD S&I Start: 03-16-2025 End: 03-16-2025 Plmt nephrostomy cath prq new access rs&i [facility] Start: 03-16-2025 Subsequent hospital visit by physician 03/16/2025 8:30 AM EDT [facility] Radiology Procedure [id number] [place] [address] Dax Forbes MD [address] [place] [address] Ureteral 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.5] [facility] Procedure Comment on above: Ureteral 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.5] Start: 03-10-2025 [facility] Start: 03-08-2025 [facility] Start: 02-08-2025 End: 02-08-2025 [facility] Start: 02-08-2025 [facility] Start: 01-11-2025 [facility] Start: 01-11-2025 [facility] Start: 12-14-2024 [facility] Start: 12-14-2024 [facility] Start: 11-23-2024 [facility] Start: 11-16-2024 [facility] Start: 11-09-2024 End: 11-09-2024 Urine culture [facility] Start: 11-09-2024 Bacteria identified in Urine by Culture Urine Culture [facility] Start: 10-18-2024 End: 10-19-2024 [facility] Start: 10-17-2024 Bacteria identified in Urine by Culture Urine Culture [facility] Start: 10-17-2024 Urine culture [facility] Start: 09-21-2024 [facility] Start: 09-21-2024 [facility] Start: 09-13-2024 [facility] Start: 08-24-2024 End: 08-25-2024 [facility] Start: 08-17-2024 Advance Directive Discussion Advance Directive Discussion [facility] Start: 08-03-2024 [facility] Start: 07-28-2024 [facility] Start: 07-20-2024 [facility] Start: 06-30-2024 [facility] Start: 06-05-2024 [facility] Start: 06-04-2024 Cystoscopy OR Cysto/Retro/Stent/Stone/ Holmium Laser (Left) [facility] Start: 06-03-2024 Cystoscopy OR Cysto/Retro/Stent/Stone/ Holmium Laser (Left) [facility] Start: 06-03-2024 aPTT in Platelet poo r plasma by Coagulation assay [facility] Start: 06-03-2024 Comprehensive metabo lic 2000 panel - Serum or Plasma [facility] Start: 06-03-2024 [facility] Start: 06-02-2024 [facility] Start: 06-02-2024 Urine culture [facility] Start: 06-02-2024 Referral to urologist [facility] Start: 06-02-2024 Physical therapy procedure [facility] Start: 06-02-[address] manager [facility] Start: 06-02-2024 Referral to occupati onal therapist [facility] Start: 06-02-2024 End: 06-02-2024 [facility] Start: 06-02-2024 Hospital admission [facility] Start: 06-02-2024 Bacteria identified in Urine by Culture Urine Culture [facility] Start: 06-02-2024 Fluoroscopy of Kidne ys, Ureters and Bladder using Low Osmolar Contrast [facility] Start: 06-02-2024 [facility] Start: 06-01-2024 [facility] Start: 05-24-2024 [facility] Start: 05-19-2024 End: 05-20-2024 [facility] Start: 05-06-2024 [facility] Start: 04-22-2024 [facility] Start: 04-22-2024 [facility] Start: 04-17-2024 Covid-19 Vaccine ( season) Covid-19 Vaccine () [facility] Start: 04-09-2024 Complete blood count Hemoglobin/Michael tocrit [facility] Start: 04-09-2024 Creatinine measurement Serum Creatin ine [facility] Start: 04-08-2024 [facility] Start: 03-24-2024 End: 03-25-2024 [facility] Start: 03-18-2024 [facility] Start: 03-08-2024 [facility] Start: 03-04-2024 [facility] Start: 03-02-2024 [facility] Start: 03-02-2024 [facility] Start: 02-24-2024 HEMOGLOBIN/HEMATOCRIT HEMOGLOBIN/HEM ATOCRIT [facility] Start: 02-24-2024 SERUM CREATININE SERUM CREATININE Cl [facility] Start: 02-19-2024 [facility] Start: 02-16-2024 [facility] Start: 01-28-2024 [facility] Start: 01-22-2024 [facility] Start: 01-21-2024 Referral to urologist Freida [facility] Start: 01-20-[address] manager [facility] Start: 01-19-2024 Hospital admission [facility] Start: 01-19-2024 [facility] Start: 01-19-2024 Plain chest X-ray XR chest 1V portab le [facility] Start: 01-19-2024 Bacteria identified in Blood by Culture [facility] Start: 01-19-2024 Bacteria identified in Urine by Culture [facility] Start: 01-19-2024 Blood culture for bacteria, including anaerobic screen Blood Culture [facility] Start: 12-18-2023 [facility] Start: 10-22-2023 [facility] Start: 10-08-2023 [facility] Start: 10-08-2023 [facility] Start: 09-24-2023 [facility] Start: 09-10-2023 [facility] Start: 08-26-2023 End: 08-27-2023 [facility] Start: 08-18-2023 [facility] Start: 07-31-2023 [facility] Start: 07-28-2023 [facility] Start: 07-16-2023 [facility] Start: 07-02-2023 [facility] Start: 06-18-2023 [facility] Start: 06-18-2023 [facility] Start: 06-04-2023 [facility] Start: 06-04-2023 [facility] Start: 05-21-2023 [facility] Start: 05-19-2023 End: 05-19-2023 [facility] Start: 05-19-2023 Immunofixation for Urine [facility] Start: 05-07-2023 [facility] Start: 05-07-2023 [facility] Start: 04-23-2023 [facility] Start: 04-17-2023 Influenza vaccination INFLUENZA (#1) [facility] Start: 04-09-2023 [facility] Start: 03-26-2023 [facility] Start: 03-12-2023 [facility] Start: 03-10-2023 End: 03-10-2023 [facility] Start: 03-09-2023 [facility] Start: 03-02-2023 [facility] Start: 02-19-2023 [facility] Start: 02-05-2023 [facility] Start: 01-22-2023 [facility] Start: 01-08-2023 [facility] Start: 12-25-2022 [facility] Start: 12-11-2022 [facility] Start: 11-27-2022 [facility] Start: 11-13-2022 [facility] Start: 11-11-2022 MR prostate wo con MR prostate wo co n [facility] Start: 11-11-2022 MR Prostate WO contrast [facility] Start: 11-10-2022 Urine culture Urine Culture [facility] Start: 11-06-2022 [facility] Start: 10-30-2022 [facility] Start: 10-30-2022 [facility] Start: 10-30-2022 [facility] Start: 10-21-2022 [facility] Start: 10-16-2022 [facility] Start: 10-09-2022 [facility] Start: 10-01-2022 [facility] Start: 09-23-2022 Bacteria identified in Urine by Culture [facility] Start: 09-22-2022 [facility] Start: 08-28-2022 [facility] Start: 08-27-2022 [facility] Start: 08-17-2022 ADVANCE DIRECTIVE DISCUSSION ADVANCE DIRECTIVE DISCUSSION [facility] Start: 08-17-2022 DEPRESSION ASSESSMENT DEPRESSION ASS ESSMENT [facility] Start: 07-28-2022 End: 07-28-2022 [facility] Start: 07-25-2022 End: 07-25-2022 [facility] Start: 05-29-2022 [facility] Start: 05-08-2022 [facility] Start: 04-30-2022 End: 04-30-2022 [facility] Start: 04-30-2022 Immunofixation for Urine [facility] Work Phone: Start: 04-30-2022 End: 04-30-2022 [facility] Work Phone: Start: 04-30-2022 CT guided biopsy [facility] Work Phone: Start: 04-30-[address] guided biopsy [facility] Start: 04-16-2022 Registered Recurring Anemia of renal disease [facility] Start: 2022 [facility] Start: 2022 [facility] [facility] Start[facility]-18-2021 [facility] Start: 11-25-2021 [facility] Start: 09-20-2021 [facility] Start: 09-12-2021 [facility] Start: 08-19-2021 Pneumococcal Vaccine : 50+ (2 of 2 - PPSV23) Pneumococcal Vaccine: 50+ (2 of 2 - PPSV23) [facility] Start: 08-19-2021 Pneumococcal Vaccine : 50+ (2 of 2 - PPSV23, PCV20, or PCV21) Pneumococcal Vaccine: 50+ (2 of 2 - PPSV23, PCV20, or PCV21) [facility] Start: 08-19-2021 PNEUMOCOCCAL: 65+ (2 - PPSV23 if available, else PCV20) PNEUMOCOCCAL: 65+ (2 - PPSV23 if available, else PCV20) [facility] Start: 08-19-2021 PNEUMOCOCCAL: 65+ (2 - PPSV23 or PCV20) PNEUMOCOCCAL: 65+ (2 - PPSV23 or PCV20) [facility] Start: 08-14-2021 [facility] Start: 07-30-2021 COVID-19 VACCINE (4 - Booster for Pfizer series) COVID-19 VACCINE (4 - Booster for Pfizer series) [facility] Start: 07-30-2021 COVID-19 VACCINE (5 - Booster) COVID-19 VACCINE (5 - Booster) [facility] Start: 06-17-2021 End: 06-17-2021 [facility] Start: 05-17-2021 [facility] Start: 04-25-2021 End: 04-25-2021 [facility] Start: 10-10-2020 [facility] Start: 06-15-2020 [facility] Start: 05-07-2020 [facility] Start: 05-03-2020 [facility] Start: 04-25-2020 [facility] Start: 04-16-2020 End: 04-16-2020 [facility] Start: 04-12-2020 End: 04-12-2020 [facility] Start: 03-21-2020 [facility] Start: 03-21-2020 End: 03-21-2020 [facility] Start: 03-15-2020 [facility] Start: 03-12-2020 [facility] Start: 02-05-2020 RSV Vaccine (1 - 1-d ose 75+ series) RSV Vaccine (1 - 1-dose 75+ series) [facility] Start: 2010 PNEUMOCOCCAL: 65+ (1 - PCV) PNEUMOCOCCAL: 65+ (1 - PCV) [facility] Start: 12-15-2004 Medicare Annual Well ness Visit Medicare Annual Wellness Visit [facility] Start: 1995 SHINGRIX VACCINE (1 of 2) LEONARD GRIX VACCINE (1 of 2) [facility] Start: 1990 DIABETES SCREEN DIABETES SCREEN [facility] Start: 02-05-1964 Urine microalbumin profile DTAP,TDAP,TD (1 - Tdap) [facility] Start: 1963 ANNUAL PCP TEAM ZONING ENGINEER HARSH DISEASE VISIT ANNUAL PCP TEAM CHRONIC DISEASE VISIT [facility] Start: 1963 Anxiety Screening Anxiety Screening [facility] Start: 1963 BP CONTROLLED (<130/80) BP CONTROLLE D (<130/80) [facility] Start: 1963 Depression Screening Depression Scre ening [facility] Start: 1963 HEMOGLOBIN/HEMATOCRIT HEMOGLOBIN/HEM ATOCRIT [facility] Start: 1963 Hepatitis B surface antibody level LDL CHOLESTEROL [facility] Start: 1963 HEPATITIS C SCREENING HEPATITIS C SC REENING [facility] Start: 1963 SERUM CREATININE SERUM CREATININE Cl [facility] Start: 1955 3 comp foot exam completed DIABETIC FOOT EXAM [facility] Start: 1955 Diabetic foot examination Diabetic F oot Exam [facility] Start: 1955 Glaucoma screening Dilated Retinal E xam [facility] Start: 1955 Hepatitis B screening URINE AL BUMIN:CREATININE RATIO [facility] Start: 1955 Hepatitis C antibody , confirmatory test DILATED RETINAL EXAM [facility] Start: 1950 Hemoglobin A1c measurement HbA1C [facility] Start: 1950 Hemoglobin A1c/Hemoglobin.total in Blood HBA1C [facility] 24 hour urine measurement [facility] Work Phone: 24 hour urine measurement [facility] 24 hour urine measurement [facility] Albumin [Mass/volume ] in Serum or Plasma [facility] Work Phone: Albumin [Mass/volume ] in Serum or Plasma [facility] Albumin [Mass/volume ] in Serum or Plasma [facility] Albumin/Globulin ratio [facility] Work Phone: Albumin/Globulin ratio [facility] Albumin/Globulin ratio [facility] Albumin/Globulin ratio [facility] Anion gap measurement [facility] Anion gap measurement [facility] aPTT in Platelet poo r plasma by Coagulation assay [facility] Work Phone: aPTT in Platelet poo r plasma by Coagulation assay [facility] Bacteria identified in Urine by Culture Urine culture Microbiology STAT 02/08/2025 2:45 PM EDT [facility] Work Phone: Basophils [#/volume] in Blood by Automated count [facility] Basophils/100 leukoc ytes in Blood by Automated count [facility] Blood chemistry [facility] Work Phone: Comprehensive metabo lic 1999 panel - Serum or Plasma [facility] Work Phone: Comprehensive metabo lic 1999 panel - Serum or Plasma [facility] Comprehensive metabo lic 1999 panel - Serum or Plasma [facility] Comprehensive metabo lic 1999 panel - Serum or Plasma [facility] Comprehensive metabo lic 1999 panel - Serum or Plasma [facility] Comprehensive metabo lic 1999 panel - Serum or Plasma [facility] Comprehensive metabo lic 1999 panel - Serum or Plasma [facility] Comprehensive metabo lic 1999 panel - Serum or Plasma [facility] Comprehensive metabo lic 1999 panel - Serum or Plasma [facility] Comprehensive metabo lic 1999 panel - Serum or Plasma [facility] Comprehensive metabo lic 1999 panel - Serum or Plasma [facility] Comprehensive metabo lic 1999 panel - Serum or Plasma [facility] Comprehensive metabo lic 1999 panel - Serum or Plasma [facility] Comprehensive metabo lic 1999 panel - Serum or Plasma [facility] Comprehensive metabo lic 1999 panel - Serum or Plasma [facility] Comprehensive metabo lic 1999 panel - Serum or Plasma [facility] Comprehensive metabo lic 1999 panel - Serum or Plasma [facility] Comprehensive metabo lic 1999 panel - Serum or Plasma [facility] CT guided biopsy [facility] Work Phone: Electrophoresis: [id number] [facility] Work Phone: Electrophoresis: [id number] [facility] Electrophoresis: [id number] [facility] Electrophoresis: [id number] [facility] Work Phone: Electrophoresis: [id number] [facility] Electrophoresis: [id number] [facility] Electrophoresis: beta-globulin [facility] Work Phone: Electrophoresis: beta-globulin [facility] Electrophoresis: beta-globulin [facility] Electrophoresis: radha ma globulin [facility] Work Phone: Electrophoresis: radha ma globulin [facility] Electrophoresis: radha ma globulin [facility] Eosinophils/100 leukocytes in Blood by Automated count [facility] Erythrocyte distribu tion width [Ratio] by Automated count [facility] Erythrocytes [#/volu me] in Blood [facility] Erythropoietin (EPO) [Units/volume] in Serum or Plasma [facility] Ferritin [Mass/volum e] in Serum or Plasma [facility] FREE K+L LT CHAINS, QN, S FREE K +L LT CHAINS, QN, S Lab Routine 01/30/2025 1:21 PM EDT [facility] Work Phone: Globulin [Mass/volum e] in Serum [facility] Work Phone: Globulin [Mass/volum e] in Serum [facility] Globulin [Mass/volum e] in Serum [facility] Globulin [Mass/volum e] in Serum [facility] Glucose measurement estimated from glycated hemoglobin [facility] End: 03-17-2026 Guidance for exchange of nephrostomy tube of Kidney IR NEPH TUBE CHANGE Radiology Routine Ureteral stricture Once per month for 12 Occurrences starting 03/16/2025 until 03/17/2026 [facility] Work Phone: Comment on above: Once per month for 1 2 Occurrences starting 03/16/2025 until 03/17/2026 Hematocrit [Volume Fraction] of Blood [facility] Hemoglobin [Mass/vol ume] in Blood [facility] Hemoglobin A1c/Hemoglobin.total in Blood [facility] Homocysteine [Moles/volume] in Serum or Plasma [facility] Homocysteine [Moles/volume] in Serum or Plasma [facility] IgA [Mass/volume] in Serum or Plasma [facility] Work Phone: IgA [Mass/volume] in Serum or Plasma [facility] IgA [Mass/volume] in Serum or Plasma [facility] IgA [Mass/volume] in Serum or Plasma [facility] IgG [Mass/volume] in Serum or Plasma [facility] Work Phone: IgG [Mass/volume] in Serum or Plasma [facility] IgG [Mass/volume] in Serum or Plasma [facility] IgG [Mass/volume] in Serum or Plasma [facility] IgM [Mass/volume] in Serum or Plasma [facility] Work Phone: IgM [Mass/volume] in Serum or Plasma [facility] IgM [Mass/volume] in Serum or Plasma [facility] IgM [Mass/volume] in Serum or Plasma [facility] Immunofixation for Urine [facility] Work Phone: Immunofixation for Urine [facility] Immunofixation for Urine [facility] Immunofixation for Urine [facility] Immunofixation for Urine [facility] Immunofixation for Urine [facility] Immunofixation for Urine [facility] Immunofixation for Urine [facility] Immunofixation for Urine [facility] Immunofixation for Urine [facility] Immunofixation for Urine [facility] IMMUNOFIXATION, (JOSE C ), URINE IMMUNOFIXATION, (JOSE C), URINE Lab Routine 05/20/2024 12:58 PM EDT [facility] Work Phone: IMMUNOGLOBULINS A/G/ M, QN, SER IMMUNOGLOBULINS A/G/M, QN, SER Lab Routine 05/20/2024 12:58 PM EDT [facility] Work Phone: IMMUNOGLOBULINS A/G/ M, QN, SER IMMUNOGLOBULINS A/G/M, QN, SER Lab Routine 09/27/2024 12:22 PM EST [facility] Work Phone: INR in Platelet poor plasma by Coagulation assay [facility] [place] light chains.f ree [Mass/volume] in Serum [facility] Work Phone: [place] light chains.f ree [Mass/volume] in Serum [facility] [place] light chains.f ree [Mass/volume] in Serum [facility] [place] light chains.free/Lambda light chains.free [Mass Ratio] in Serum [facility] Work Phone: [place] light chains.free/Lambda light chains.free [Mass Ratio] in Serum [facility] [place] light chains.free/Lambda light chains.free [Mass Ratio] in Serum [facility] Lactate dehydrogenas e [Enzymatic activity/volume] in Unspecified specimen [facility] Work Phone: Lactate dehydrogenas e [Enzymatic activity/volume] in Unspecified specimen [facility] Lactate dehydrogenas e [Enzymatic activity/volume] in Unspecified specimen [facility] Lactate dehydrogenas e [Enzymatic activity/volume] in Unspecified specimen [facility] Lactate dehydrogenas e [Enzymatic activity/volume] in Unspecified specimen [facility] Lambda light chains. free [Mass/volume] in Serum or Plasma [facility] Work Phone: Lambda light chains. free [Mass/volume] in Serum or Plasma [facility] Lambda light chains. free [Mass/volume] in Serum or Plasma [facility] Leukocytes [#/volume ] corrected for nucleated erythrocytes in Blood by Automated coun [facility] Leukocytes [#/volume ] in Blood [facility] Lymphocytes [#/volum e] in Blood by Automated count [facility] Lymphocytes/100 leukocytes in Blood by Automated count [facility] MCH [Entitic mass] b y Automated count [facility] MCHC [Mass/volume] b y Automated count [facility] MCV [Entitic volume] by Automated count [facility] Measurement of monoc lonal protein concentration [facility] Work Phone: Measurement of monoc lonal protein concentration [facility] Measurement of monoc lonal protein concentration [facility] Methylmalonate [Moles/volume] in Serum or Plasma [facility] Methylmalonate [Moles/volume] in Serum or Plasma [facility] Monocytes [#/volume] in Blood by Automated count [facility] Monocytes/100 leukoc ytes in Blood by Automated count [facility] Neutrophils [#/volum e] in Blood by Automated count [facility] Neutrophils/100 leukocytes in Blood by Automated count [facility] Nucleated erythrocyt es [Presence] in Blood by Automated count [facility] Patient Education [facility] Work Phone: Patient referral [facility] Work Phone: Platelet mean volume [Entitic volume] in Blood by Automated count [facility] Platelets [#/volume] in Blood [facility] Protein [Mass/volume ] in Serum or Plasma [facility] Work Phone: Protein [Mass/volume ] in Serum or Plasma [facility] Protein [Mass/volume ] in Serum or Plasma [facility] Protein [Mass/volume ] in Urine [facility] Work Phone: Protein [Mass/volume ] in Urine [facility] Protein [Mass/volume ] in Urine [facility] Prothrombin time (PT) [facility] Radiologic examinati on osseous survey compl [facility] Radiologic examinati on osseous survey [facility] Renal function 2000 panel - Serum or Plasma [facility] Renal function 1999 panel - Serum or Plasma [facility] Renal function 2000 panel - Serum or Plasma [facility] Renal function 2000 panel - Serum or Plasma [facility] Renal function 1999 panel - Serum or Plasma [facility] Renal function 1999 panel - Serum or Plasma [facility] Serum immunofixation [facility] Work Phone: [facility] [place] [facility] Immunizations Immunization Date Immunization Notes Care Provider Denise presley 06-08-2024 influenza virus vacc ine, unspecified formulation Orquidea Cortez [facility] 07-28-2023 influenza virus vacc ine, unspecified formulation Orquidea Luheena [facility] 07-28-2022 hepatitis A vaccine, adult dosage MD Helen Heath Work Phone: [facility] 05-18-2022 influenza (HD-IIV4) vaccine, age 65+ yr, high dose, quadrivalent, PF (FLUZONE HIGH-DOSE) Pac 2 Work Phone: [facility] 05-18-2022 influenza virus vacc ine, unspecified formulation Orquidea Lue [facility] 03-03-2022 zoster vaccine recombinant Orquidea Cortez [facility] 02-05-2022 hepatitis A vaccine, adult dosage MD Helen Heath Work Phone: [facility] 07-31-2021 zoster vaccine recombinant Orquidea Cortez [facility] 07-16-2021 influenza (aIIV4) vaccine, age 65+ yr, quadrivalent, PF (FLUAD QUAD) [facility] 2 Work Phone: [facility] 07-16-2021 influenza virus vacc ine, unspecified formulation Orquidea Cortez [facility] 06-24-2021 diphtheria, tetanus toxoids and acellular pertussis vaccine Orquidea Cortez [facility] 06-24-2021 diphtheria, tetanus toxoids and acellular pertussis vaccine, 5 pertussis antigens MD Helen Heath Work Phone: [facility] 06-24-2021 haemophilus influenz ae type b vaccine, PRP-T conjugate MD Helen Heath Work Phone: [facility] 06-24-2021 hepatitis B vaccine, pediatric or pediatric/adolescent dosage MD Helen Heath Work Phone: [facility] 06-24-2021 pneumococcal conjuga te vaccine, 13 valent MD Helen Heath Work Phone: [facility] 06-04-2021 SARS-CoV-2 (COVID-19 ) Ad26 vaccine, recombinant Patsy Seals Jr. [facility] 04-29-2021 diphtheria, tetanus toxoids and acellular pertussis vaccine Orquidea Mercadoheena [facility] 04-29-2021 diphtheria, tetanus toxoids and acellular pertussis vaccine, 5 pertussis antigens MD Helen Heath Work Phone: [facility] 04-29-2021 haemophilus influenz ae type b vaccine, PRP-T conjugate MD Helen Heath Work Phone: [facility] 04-29-2021 hepatitis B vaccine, pediatric or pediatric/adolescent dosage MD Helen Heath Work Phone: [facility] 04-29-2021 meningococcal ACWY vaccine, unspecified formulation Orquidea Lue [facility] 04-29-2021 meningococcal polysaccharide (groups A, C, Y and W-135) diphtheria toxoid conjugate vaccine (MCV4P) MD Helen Heath Work Phone: [facility] 04-29-2021 pneumococcal conjuga te vaccine, 13 valent MD Helen Heath Work Phone: [facility] 03-04-2021 diphtheria, tetanus toxoids and acellular pertussis vaccine Orquidea Lue [facility] 03-04-2021 diphtheria, tetanus toxoids and acellular pertussis vaccine, 5 pertussis antigens MD Helen Heath Work Phone: [facility] 03-04-2021 haemophilus influenz ae type b vaccine, PRP-T conjugate MD Helen Heath Work Phone: [facility] 03-04-2021 hepatitis B vaccine, pediatric or pediatric/adolescent dosage MD Helen Heath Work Phone: [facility] 03-04-2021 meningococcal ACWY vaccine, unspecified formulation Orquidea Lue [facility] 03-04-2021 meningococcal polysaccharide (groups A, C, Y and W-135) diphtheria toxoid conjugate vaccine (MCV4P) MD Helen Heath Work Phone: [facility] 03-04-2021 pneumococcal conjuga te vaccine, 13 valent MD Helen Heath Work Phone: [facility] 11-13-2020 SARS-CoV-2 (COVID-19 ) Ad26 vaccine, recombinant Patsy Seals Jr. [facility] 10-23-2020 SARS-CoV-2 (COVID-19 ) Ad26 vaccine, recombinant Patsy Seals Jr. [facility] 10-12-2020 SARS-CoV-2 (COVID-19 ) mRNA-1273 vaccine Patsy Seals Jr. [facility] Comment on above: Result Comment: radha castillo date Result Comment: radha castillo date 05-17-2020 influenza virus vacc ine, unspecified formulation Patsy Seals Jr. [facility] 05-04-2020 influenza virus vacc ine, unspecified formulation Orquidea Lue [facility] 06-02-2019 influenza virus vacc ine, unspecified formulation Orquidea Lue [facility] 06-02-2019 influenza, high dose seasonal, preservative-free Pacc 2 Work Phone: [facility] 07-04-2015 influenza virus vacc ine, unspecified formulation Orquidea Lue [facility] 07-04-2015 influenza, high dose seasonal, preservative-free Pacc 2 Work Phone: [facility] 07-04-2015 pneumococcal conjuga te vaccine, 13 valent Orquidea Cortez [facility] 10-27-2013 zoster vaccine, live Orquidea burgess [facility] Payers Date Payer Category Payer Self-pay [id number] 2022 Unknown [id number] 2022 Private Health Insurance [id number] 2004 Medicare [id number] 1959 Medicare [id number] 2.1 [id number] 1959 Unknown [id number] 1945 Unknown [id number] 2.. 840.1.451383.3.579.2.356 1945 Unknown [id number] 2.. 840.1.987665.3.579.2. 1945 Unknown [id number] 2.16. 840.1.221748.3.579.2.356 1945 Unknown [id number] 2.16. 840.1.427244.3.579.2.356 1945 Unknown [id number] 2.16. 840.1.417651.3.579.2.356 1945 Unknown [id number] 2.16. 840.1.543285.3.579.2.356 1945 Unknown [id number] 2.16. 840.1.810154.3.579.2.356 1945 Unknown [id number] 2.16.84 0.1.646149.3.579.2.593 1945 Unknown [id number] 2.16.84 0.1.763427.3.579.2.593 1945 Unknown [id number] 2.16.84 0.1.235049.3.579.2.593 1945 Unknown [id number] 2.16.84 0.1.996298.3.579.2.593 1945 Unknown [id number] 2.16.84 0.1.852562.3.579.2.593 1945 Unknown [id number] 2.16.84 0.1.916169.3.579.2.593 1945 Unknown [id number] 2.16.84 0.1.525565.3.579.2.593 1945 Unknown [id number] 2.16.84 0.1.721741.3.579.2.593 1945 Unknown [id number] 2.16.84 0.1.546138.3.579.2.593 1945 Unknown [id number] 2.16.84 0.1.802323.3.579.2.593 1945 Unknown [id number] 2.16.84 0.1.151762.3.579.2.593 1945 Unknown [id number] 2.16.84 0.1.045217.3.579.2.593 1945 Unknown [id number] 2.16.8 40.1.087060.3.579.2.727 1945 Unknown [id number] 2.16.8 40.1.549993.3.579.2.727 1945 Unknown [id number] 2.16.8 40.1.763728.3.579.2.727 1945 Unknown [id number] 2.16.8 40.1.602530.3.579.2.72 1945 Unknown [id number] 2.16.8 40.1.632791.3.579.2. 1945 Unknown [id number] 2.16.8 40.1.986096.3.579.2. 1945 Unknown [id number] 2.16.8 40.1.038806.3.579.2. 1945 Unknown [id number] 2.16.8 40.1.168374.3.579.2. 1945 Unknown [id number] 2.16.8 40.1.307737.3.579.2 1945 Unknown [id number] 2.16.8 40.1.992266.3.579.2 1945 Unknown [id number] 2.16.8 40.1.833583.3.579.2 1945 Unknown [id number] 2.16.8 40.1.445768.3.579.2 1945 Unknown [id number] 2.16.8 40.1.048773.3.579.2 1945 Unknown [id number] 2.16.8 40.1.942705.3.579.2 1945 Unknown [id number] 2.16.8 40.1.792900.3.579.2. 1945 Unknown [id number] 2.16.8 40.1.657845.3.579.2. 1945 Unknown [id number] 2.16.8 40.1.699731.3.579.2. 1945 Unknown [id number] 2.16.8 40.1.827732.3.579.2 1945 Unknown [id number] 2.16.8 40.1.157037.3.579.2.727 1945 Unknown [id number] 2.16.8 40.1.242910.3.579.2.727 1945 Unknown [id number] 2.16.8 40.1.991073.3.579.2.727 1945 Unknown [id number] 2.16.8 40.1.210820.3.579.2.72 1945 Unknown [id number] 2.16.8 40.1.772515.3.579.2.72 1945 Unknown [id number] 2.16.8 40.1.478568.3.579.2. 1945 Unknown [id number] 2.16.8 40.1.352311.3.579.2.72 1945 Unknown [id number] 2.16.8 40.1.150474.3.579.2.72 1945 Unknown [id number] 2.16.8 40.1.194673.3.579.2.727 1945 Unknown [id number] 2.16.8 40.1.703480.3.579.2.72 1945 Unknown [id number] 2.16.8 40.1.322316.3.579.2.727 1945 Unknown [id number] 2.16.8 40.1.815515.3.579.2.72 1945 Unknown [id number] 2.16.8 40.1.059090.3.579.2.727 1945 Unknown [id number] 2.16.8 40.1.291535.3.579.2. 1945 Unknown [id number] 2.16.8 40.1.256575.3.579.2.727 1945 Unknown [id number] 2.16.8 40.1.387185.3.579.2.727 1945 Unknown [id number] 2.16.8 40.1.878682.3.579.2.727 1945 Unknown [id number] 2.16.8 40.1.524053.3.579.2.727 1945 Unknown [id number] 2.16.8 40.1.097322.3.579.2.72 1945 Unknown [id number] 2.16.8 40.1.824812.3.579.2.727 1945 Unknown [id number] 2.16.8 40.1.901881.3.579.2.72 1945 Unknown [id number] 2.16.8 40.1.985708.3.579.2.727 1945 Unknown [id number] 2.16.8 40.1.708501.3.579.2.72 1945 Unknown [id number] 2.16.8 40.1.442158.3.579.2.727 1945 Unknown [id number] 2.16.8 40.1.056164.3.579.2.727 1945 Unknown [id number] 2.16.8 40.1.024764.3.579.2.727 1945 Unknown [id number] 2.16.8 40.1.198641.3.579.2.727 1945 Unknown [id number] 2.16.8 40.1.451109.3.579.2.727 1945 Unknown [id number] 2.16.8 40.1.236946.3.579.2.72 1945 Unknown [id number] 2.16.8 40.1.666338.3.579.2.727 1945 Unknown [id number] 2.16.8 40.1.080931.3.579.2.727 1945 Unknown [id number] 2.16.8 40.1.649584.3.579.2.727 1945 Unknown [id number] 2.16.8 40.1.757229.3.579.2. 1945 Unknown [id number] 2.16.8 40.1.922023.3.579.2.72 1945 Unknown [id number] 2.16.8 40.1.999037.3.579.2. 1945 Unknown [id number] 2.16.8 40.1.136639.3.579.2.72 1945 Unknown [id number] 2.16.8 40.1.503563.3.579.2. 1945 Unknown [id number] 2.16.8 40.1.665355.3.579.2 1945 Unknown [id number] 2.16.8 40.1.553480.3.579.2.72 1945 Unknown [id number] 2.16.8 40.1.473042.3.579.2 1945 Unknown [id number] 2.16.8 40.1.900176.3.579.2. 1945 Unknown [id number] 2.16.8 40.1.121588.3.579.2. 1945 Unknown [id number] 2.16.8 40.1.079271.3.579.2.72 1945 Unknown [id number] 2.16.8 40.1.048804.3.579.2.72 1945 Unknown [id number] 2.16.8 40.1.867536.3.579.2.72 1945 Unknown [id number] 2.16.8 40.1.208818.3.579.2.72 1945 Unknown [id number] 2.16.8 40.1.831064.3.579.2.727 1945 Unknown [id number] 2.16.8 40.1.875289.3.579.2.727 1945 Unknown [id number] 2.16.8 40.1.676418.3.579.2.727 1945 Unknown [id number] 2.16.8 40.1.868612.3.579.2.72 1945 Unknown [id number] 2.16.8 40.1.672584.3.579.2.72 1945 Unknown [id number] 2.16.8 40.1.136123.3.579.2.72 1945 Unknown [id number] 2.16.8 40.1.662129.3.579.2.72 1945 Unknown [id number] 2.16.8 40.1.705169.3.579.2.72 1945 Unknown [id number] 2.16.8 40.1.501649.3.579.2.727 Medicare [id number] Unknown [id number] 2.1 6.840.1.981469.19 Unknown [id number] 2.16.8 40.1.434956.3.579.2.531 Unknown [id number] 2.16.8 40.1.418817.3.579.2.531 Unknown [id number] 2.16.8 40.1.840602.3.579.2.531 Unknown [id number] 2.16.8 40.1.573087.3.579.2.531 Unknown [id number] 2.16.8 40.1.786977.3.579.2.531 Unknown [id number] 2.16.8 40.1.737352.3.579.2.531 Unknown [id number] 2.16.8 40.1.769878.3.579.2.531 Unknown [id number] 2.16.8 40.1.908625.3.579.2.531 Unknown [id number] 2.16.8 40.1.193588.3.579.2.531 Unknown [id number] 2.16.8 40.1.547969.3.579.2.531 Unknown [id number] 2.16.8 40.1.961771.3.579.2.531 Unknown [id number] 2.16.8 40.1.469708.3.579.2.531 Social History Date Type Detail Facility Start: 11-13-2020 End: 02-11-2023 Tobacco smoking status Ex-smoker (finding) [facility] Other Comment on above: pt quit smoking 20 y ears ago pt quit smoking 20 y ears ago Start: 01-07-2023 End: 02-11-2023 Sex Assigned At Male [facility] Start: 02-05-2022 End: 01-19-2024 Tobacco smoking status NHIS Never smoked tobacco (finding) [facility] Start: 1945 Sex Assigned At Male [facility] Start: 12-19-2022 End: 07-22-2023 Tobacco smoking status Never [facility] Marcela Comment on above: pt quit smoking 20 y ears ago Tobacco smoking stat us NCIS Tobacco smoking consumption unknown [facility] Start: 1945 Sex Assigned At Not on file [facility] End: 08-17-1979 History of tobacco use Current smoker [facility] End: 08-17-1979 History of tobacco use Cigarette Smoker [facility] Start: 01-07-2023 End: 02-11-2023 Cigarettes smoked current (pack per day) - Reported 2 [facility] Start: 02-11-2023 Tobacco use and exposure Smokeless tobacco non-user [facility] Start: 02-11-2023 Alcohol intake Current drinke r of alcohol (finding) [facility] Start: 02-11-2023 Alcohol Comment none since 1990 leydi [facility] Start: 11-28-2009 End: 06-24-2024 Sex Male (finding) [facility] Tobacco quit 28 years To bacco Use:. [facility] Comment on above: pt quit smoking 20 y ears ago Tobacco smoking status [facility] Medical Equipment Procedure Code Equipment Code Equipment Origin al Text Equipment Identifier Dates Insertion of central venous catheter (CVC) with subcutaneous port for chemotherapy [id number] FDA Start: 03-09-2020 Fluoroscopic guidance for insertion of tunnelled dialysis catheter [id number] FDA Start: 03-08-2020 Fluoroscopic guidance for insertion of tunnelled dialysis catheter [id number] FDA Start: 03-08-2020 Fluoroscopic guidance for insertion of tunnelled dialysis catheter [id number] FDA Start: 03-08-2020 Fluoroscopic guidance for insertion of tunnelled dialysis catheter [id number] FDA Start: 03-08-2020 Fluoroscopic guidance for insertion of tunnelled dialysis catheter [id number] FDA Start: 03-08-2020 Fluoroscopic guidance for insertion of tunnelled dialysis catheter [id number] FDA Start: 03-08-2020 Fluoroscopic guidance for insertion of tunnelled dialysis catheter [id number] FDA Start: 03-08-2020 Fluoroscopic guidance for insertion of tunnelled dialysis catheter [id number] FDA Start: 03-08-2020 Fluoroscopic guidance for insertion of tunnelled dialysis catheter [id number] FDA Start: 03-08-2020 Fluoroscopic guidance for insertion of tunnelled dialysis catheter [id number] FDA Start: 03-08-2020 Fluoroscopic guidance for insertion of tunnelled dialysis catheter [id number] FDA Start: 03-08-2020 Fluoroscopic guidance for insertion of tunnelled dialysis catheter [id number] FDA Start: 03-08-2020 Fluoroscopic guidance for insertion of tunnelled dialysis catheter [id number] FDA Start: 03-08-2020 Fluoroscopic guidance for insertion of tunnelled dialysis catheter [id number] FDA Start: 03-08-2020 Fluoroscopic guidance for insertion of tunnelled dialysis catheter [id number] FDA Start: 03-08-2020 Fluoroscopic guidance for insertion of tunnelled dialysis catheter [id number] FDA Start: 03-08-2020 Fluoroscopic guidance for insertion of tunnelled dialysis catheter [id number] FDA Start: 03-08-2020 Fluoroscopic guidance for insertion of tunnelled dialysis catheter [id number] FDA Start: 03-08-2020 Fluoroscopic guidance for insertion of tunnelled dialysis catheter [id number] FDA Start: 03-08-2020 Fluoroscopic guidance for insertion of tunnelled dialysis catheter [id number] FDA Start: 03-08-2020 Fluoroscopic guidance for insertion of tunnelled dialysis catheter [id number] FDA Start: 03-08-2020 Fluoroscopic guidance for insertion of tunnelled dialysis catheter [id number] FDA Start: 03-08-2020 Fluoroscopic guidance for insertion of tunnelled dialysis catheter [id number] FDA Start: 03-08-2020 Fluoroscopic guidance for insertion of tunnelled dialysis catheter [id number] FDA Start: 03-08-2020 Fluoroscopic guidance for insertion of tunnelled dialysis catheter [id number] FDA Start: 03-08-2020 Fluoroscopic guidance for insertion of tunnelled dialysis catheter [id number] FDA Start: 03-08-2020 Fluoroscopic guidance for insertion of tunnelled dialysis catheter [id number] FDA Start: 03-08-2020 Fluoroscopic guidance for insertion of tunnelled dialysis catheter [id number] FDA Start: 03-08-2020 Fluoroscopic guidance for insertion of tunnelled dialysis catheter [id number] FDA Start: 03-08-2020 Fluoroscopic guidance for insertion of tunnelled dialysis catheter [id number] FDA Start: 03-08-2020 Fluoroscopic guidance for insertion of tunnelled dialysis catheter [id number] FDA Start: 03-08-2020 Fluoroscopic guidance for insertion of tunnelled dialysis catheter [id number] FDA Start: 03-08-2020 Fluoroscopic guidance for insertion of tunnelled dialysis catheter FDA Start: 03-08-2020 Fluoroscopic guidance for insertion of tunnelled dialysis catheter FDA Start: 03-08-2020 Fluoroscopic guidance for insertion of tunnelled dialysis catheter [id number] FDA Start: 03-08-2020 Fluoroscopic guidance for insertion of tunnelled dialysis catheter [id number] FDA Start: 03-08-2020 Fluoroscopic guidance for insertion of tunnelled dialysis catheter [id number] FDA Start: 03-08-2020 Fluoroscopic guidance for insertion of tunnelled dialysis catheter [id number] FDA Start: 03-08-2020 Fluoroscopic guidance for insertion of tunnelled dialysis catheter [id number] FDA Start: 03-08-2020 Fluoroscopic guidance for insertion of tunnelled dialysis catheter [id number] FDA Start: 03-08-2020 Fluoroscopic guidance for insertion of tunnelled dialysis catheter [id number] FDA Start: 03-08-2020 Fluoroscopic guidance for insertion of tunnelled dialysis catheter [id number] FDA Start: 03-08-2020 Fluoroscopic guidance for insertion of tunnelled dialysis catheter FDA Start: 03-08-2020 Fluoroscopic guidance for insertion of tunnelled dialysis catheter [id number] FDA Start: 03-08-2020 Cystoscopy, with ureteral calculus manipulation and stent placement [id number] FDA Start: 06-04-2024 Stent Inlay Opti ma 6fr Taper [place] Green Polymer Phreecoat 26cm Ureteral - [id number] Start: 03-05-2023 Goals Date Patient Goal Desired Activity /State Personal health goal Functional Status Date Assessment Result Facility 08-31-2024 Functional Status N/A [facility] 08-09-2024 Functional Status N/A [facility] 06-10-2024 Functional Status N/A [facility] 06-05-2024 Functional status Patient at Baseline [facility] Work Phone: 06-02-2024 Functional status Patient at Baseline [facility] Work Phone: 01-28-2024 Functional Status N/A [facility] 01-22-2024 Functional status Patient at Baseline [facility] Work Phone: 07-22-2023 Functional Status N/A [facility] 05-15-2023 Functional Status N/A [facility] 02-13-2023 Functional Status N/A [facility] 12-19-2022 Functional Status N/A [facility] 12-05-2022 Functional Status N/A [facility] 11-03-2022 Functional Status N/A [facility] 10-16-2022 Functional Status N/A [facility] 10-09-2022 Functional Status N/A [facility] 07-07-2022 Functional Status N/A [facility] 07-04-2022 Functional Status N/A [facility] 06-04-2022 Functional Status N/A [facility] 05-05-2022 Functional Status N/A [facility] 04-18-2022 Functional Status N/A [facility] 01-28-2022 Functional Status N/A [facility] Mental Status Date Assessment Result Facility 06-05-2024 Cognitive function Patient at Baseline [facility] Work Phone: 06-02-2024 Cognitive function Cognitive Sta tus Patient at Baseline [facility] Work Phone: 01-22-2024 Cognitive function Cognitive Sta tus Patient at [facility] Work Phone: Clinical Notes 03-15-2020 to 04-13-2025 Telephone Encounter - Stanford Saldivar RN - 04/13/2025 1:09 PM EDTTelephone Encounter - Stanford Saldivar RN - 04/13/2025 1:09 PM EDTTelephone Encounter - Ana Marques - 04/13/2025 1:03 PM EDT Note Date & Type Note Facility 04-13-2025 Telephone encount er Note Nephrostomy tube teaching information sent to pt My Chart [facility] 04-13-2025 Miscellaneous Notes Formattin g of this note might be different from the original. Nephrostomy tube teaching information sent to pt My Chart documented in this encounter [facility] 04-13-2025 Telephone encount er Note Pt is due 05/25. Need qgenda schedule. [facility] 04-13-2025 Miscellaneous Notes Formattin g of this note might be different from the original. Pt is due 05/25. Need qgenda schedule. Tube Exchange Appointment Request Form Person filling out this form: Piero Huddleston RN Date: April 13, 2025 Time: 12:13 PM Patient Name: Patsy Cunningham Patient What type of tube is this? Nephrostomy or nephroureteral (tube in the back) Does this tube need exchanged? Yes, How many weeks? 6 weeks Per physician direction, does this need to be physician specific? No Does this patient require DAVIN? No Per physician, can this exchange be done in the region? [place] If the patient has an already existing exchange appointment can that one be cancelled? No Any other pertinent information needed for schedulers?n/a documented in this encounter [facility] 04-13-2025 Telephone encount er Note Tube Exchange Appointment Request Form Person filling out this form: Piero Huddleston RN Date: April 13, 2025 Time: 12:13 PM Patient Name: Patsy Cunningham Patient What type of tube is this? Nephrostomy or nephroureteral (tube in the back) Does this tube need exchanged? Yes, How many weeks? 6 weeks Per physician direction, does this need to be physician specific? No Does this patient require DAVIN? No Per physician, can this exchange be done in the region? [place] ( [place] ) If the patient has an already existing exchange appointment can that one be cancelled? No Any other pertinent information needed for schedulers?n/a [facility] 04-05-2025 Telephone encount er Note Spoke with Piedad and pt on the line, aware of below instructions RADIOLOGY PROCEDURE INSTRUCTIONS: You are scheduled for a Bilateral Nephrostomy tube change, on March You are to arrive at 1030 am and check in at [facility]: Radiology Outpatient Desk [id number]. You can expect to be here for 2-3 hours. Address: [place] [address] Diet: Do not eat any solid food after midnight the night before your procedure. You may drink clear liquids until 0930 am the day of your procedure, which means black coffee, apple juice, tea, jello, Gatorade, or water only. Medications: Please take prescribed medications such as heart, blood pressure, anti-seizure, and chronic pain medications with a sip of clear liquids. Bring your current medication list. Radiology recommends these medication restrictions: If you are taking any medication that is a blood thinner, hypoglycemic, weight loss agent, etc., you may need to hold this medication prior to procedure. Not stopping the medication correctly may result in your procedure being canceled. If ok with your prescribing provider: No need to hold Aspirin prior to this procedure. If you are diabetic please contact your physician regarding diet restrictions and managing insulin/diabetes medications pre-procedure: Per no longer taking Metformin Hold short acting insulin the day of procedure Long acting insulin, take dose If on mixed insulin - if BG> than 200 take half the dose If BG less < 200- don't take Special concerns: It is okay to shower/bathe the morning of your procedure. There may be bathing restrictions post procedure. Do you have any attached medical devices? Damion monitor If yes, the device may need to be removed before entering the procedure room. Do you use CPAP, BIPAP, or oxygen? No. Allergies: Allergies reviewed: Yes Do you have a contrast dye allergy? No. Labs: Needs INR and CBC Pt aware needs to have above lab work. Stated is having lab drawn at [facility]. She will call pt Dr. Parham to add Inr and CBC to current blood work. Advised to bring in copies of lab work. Lab work needs to be drawn? Yes, labs need to be drawn at least one day prior to procedure. Please bring a copy of the results if they are not done at a [facility] facility. [place]/Transportation: How will you be arriving for your procedure? Private car. If you will be arriving via ambulance or public transportation, please call to discuss. You will need a responsible adult to accompany you to and from the procedure. We will verify your ride home upon arrival. Minors/visitors requiring supervision cannot accompany you unless there is another responsible adult with them. Child and/or dependent care arrangements need to be made. ___ If you need to cancel or reschedule your procedure, please call our user support analyst supervisor: Aleisha Johansen and [place] [phone]; 8am - 4pm M-F If you have any additional questions please call: [place] [facility] nurses desk at [phone] 8am - 4pm M-F. [facility] 04-05-2025 Miscellaneous Notes Formattin g of this note might be different from the original. Spoke with Piedad and pt on the line, aware of below instructions RADIOLOGY PROCEDURE INSTRUCTIONS: You are scheduled for a Bilateral Nephrostomy tube change, on March You are to arrive at 1030 am and check in at [facility]: Radiology Outpatient Desk [id number]. You can expect to be here for 2-3 hours. Address: [place] [address] Diet: Do not eat any solid food after midnight the night before your procedure. You may drink clear liquids until 0930 am the day of your procedure, which means black coffee, apple juice, tea, jello, Gatorade, or water only. Medications: Please take prescribed medications such as heart, blood pressure, anti-seizure, and chronic pain medications with a sip of clear liquids. Bring your current medication list. Radiology recommends these medication restrictions: If you are taking any medication that is a blood thinner, hypoglycemic, weight loss agent, etc., you may need to hold this medication prior to procedure. Not stopping the medication correctly may result in your procedure being canceled. If ok with your prescribing provider: No need to hold Aspirin prior to this procedure. If you are diabetic please contact your physician regarding diet restrictions and managing insulin/diabetes medications pre-procedure: Per no longer taking Metformin Hold short acting insulin the day of procedure Long acting insulin, take dose If on mixed insulin - if BG> than 200 take half the dose If BG less < 200- don't take Special concerns: It is okay to shower/bathe the morning of your procedure. There may be bathing restrictions post procedure. Do you have any attached medical devices? Damion monitor If yes, the device may need to be removed before entering the procedure room. Do you use CPAP, BIPAP, or oxygen? No. Allergies: Allergies reviewed: Yes Do you have a contrast dye allergy? No. Labs: Needs INR and CBC Pt aware needs to have above lab work. Stated is having lab drawn at [facility]. She will call pt Dr. Parham to add Inr and CBC to current blood work. Advised to bring in copies of lab work. Lab work needs to be drawn? Yes, labs need to be drawn at least one day prior to procedure. Please bring a copy of the results if they are not done at a [facility] facility. [place]/Transportation: How will you be arriving for your procedure? Private car. If you will be arriving via ambulance or public transportation, please call to discuss. You will need a responsible adult to accompany you to and from the procedure. We will verify your ride home upon arrival. Minors/visitors requiring supervision cannot accompany you unless there is another responsible adult with them. Child and/or dependent care arrangements need to be made. ___ If you need to cancel or reschedule your procedure, please call our user support analyst supervisor: Aleisha Johansen and [place] [phone]; 8am - 4pm M-F If you have any additional questions please call: [place] [facility] nurses desk at [phone] 8am - 4pm M-F. documented in this encounter [facility] 03-27-2025 Hospital Discharg e instructions Patient Education 03/27/2025 15:23:14 Percutaneous Nephrostomy Percutaneous Nephrostomy Percutaneous nephrostomy is a procedure to insert a flexible tube into the kidney. This is done to help urine leave the body when it cannot leave the kidney in the normal way. Urine is supposed to be carried from the kidneys to the bladder through narrow tubes called ureters. But a ureter can become blocked. This may be because of kidney stones, an infection, a blood clot, or an abnormal growth of cells (tumor). After the procedure, the nephrostomy tube will stay in place. Urine will drain from the kidney into a bag outside your body. This will help relieve pressure and prevent infection that could damage the kidney. Tell a health care provider about: Any allergies you have. All medicines you are taking, including vitamins, herbs, eye drops, creams, and oqbr-eks-fwbiubi medicines. Any problems you or family members have had with anesthesia. Any bleeding problems you have. Any surgeries you have had. Any medical conditions you have. Whether you are or may be . What are the risks? Your health care provider will talk with you about risks. These may include: Infection. Bleeding. Allergic reactions to the medicines or dyes used. Damage to other structures or organs. What happens before the procedure? When to stop eating and drinking Follow instructions from your health care provider about what you may eat and drink. These may include: 8 hours before your procedure ?Stop eating most foods. Do not eat meat, fried foods, or fatty foods. ?Eat only light foods, such as toast or crackers. ?All liquids are okay except energy drinks and alcohol. 6 hours before your procedure ?Stop eating. ?Drink only clear liquids, such as water, clear fruit juice, black coffee, plain tea, and sports drinks. ?Do not drink energy drinks or alcohol. 2 hours before your procedure ?Stop drinking all liquids. ?You may be allowed to take medicines with small sips of water. If you do not follow your health care provider's instructions, your procedure may be delayed or canceled. Medicines Ask your health care provider about: Changing or stopping your regular medicines. These include any diabetes medicines or blood thinners you take. Taking medicines such as aspirin and ibuprofen. These medicines can thin your blood. Do not take them unless your health care provider tells you to. Taking efil-krr-mdxzbby medicines, vitamins, herbs, and supplements. Tests You may have tests done. These may include: Blood tests to see how well your kidneys and liver are working. These may also be done to see how well your blood clots. Urine tests. Imaging studies, such as ultrasound or CT scan. Surgery safety Ask your health care provider: How your surgery site will be marked. What steps will be taken to help prevent infection. These may include: ?Removing hair at the surgery site. ?Washing skin with a soap that kills germs. ?Receiving antibiotics. General instructions Do not use any products that contain nicotine or tobacco before the procedure. These products include cigarettes, chewing tobacco, and vaping devices, such as e-cigarettes. If you need help quitting, ask your health care provider. If you will be going home right after the procedure, plan to have a responsible adult: ?Take you home from the hospital or clinic. You will not be allowed to drive. ?Care for you for the time you are told. What happens during the procedure? An IV will be inserted into one of your veins. You may be given: ?A sedative. This helps you relax. ?Anesthesia. This will: ?Numb certain areas of your body. ?Make you fall asleep for surgery. You will be positioned on your abdomen. A needle will be inserted through your back and guided to your kidney. An imaging method will be used to help guide the needle. It uses X-ray images (fluoroscopy). A dye will be injected through the needle. X-ray images will be taken of your kidney. A wire will be passed through the needle. A tool called a dilator will be used to widen the path for the nephrostomy tube. The tube will be inserted over the wire and into your kidney. The wire will be removed. The tube will be left in your kidney. The tube may be secured to your skin with stitches (sutures). A bandage (dressing) will be placed on the tube site. A drainage bag will be attached to the tube. Urine will drain from your kidney to this bag outside your body. The procedure may vary among health care providers and hospitals. What happens after the procedure? Your blood pressure, heart rate, breathing rate, and blood oxygen level will be monitored until you leave the hospital or clinic. You will be taught how to care for the tube and drainage bag. If you were given a sedative during the procedure, it can affect you for several hours. Do not drive or operate machinery until your health care provider says that it is safe. This information is not intended to replace advice given to you by your health care provider. Make sure you discuss any questions you have with your health care provider. Document Revised: 02/19/2023 Document Reviewed: 02/19/2023 [employer] Patient Education 2023 [employer]. Follow Up Care 03/23/2025 13:18:17 With:Diego RICKS, OUSMANE Bell, URO Address: When: Unknown [facility] 03-27-2025 Note Patient Education Urology Percutaneous Nephrostomy Percutaneous nephrostomy is a procedure to insert a flexible tube into the kidney. This is done to help urine leave the body when it cannot leave the kidney in the normal way. Urine is supposed to be carried from the kidneys to the bladder through narrow tubes called ureters. But a ureter can become blocked. This may be because of kidney stones, an infection, a blood clot, or an abnormal growth of cells (tumor). After the procedure, the nephrostomy tube will stay in place. Urine will drain from the kidney into a bag outside your body. This will help relieve pressure and prevent infection that could damage the kidney. Tell a health care provider about: ??? Any allergies you have. ??? All medicines you are taking, including vitamins, herbs, eye drops, creams, and xblv-rrt-nglhbmz medicines. ??? Any problems you or family members have had with anesthesia. ??? Any bleeding problems you have. ??? Any surgeries you have had. ??? Any medical conditions you have. ??? Whether you are or may be . What are the risks? Your health care provider will talk with you about risks. These may include: ??? Infection. ??? Bleeding. ??? Allergic reactions to the medicines or dyes used. ??? Damage to other structures or organs. What happens before the procedure? When to stop eating and drinking Follow instructions from your health care provider about what you may eat and drink. These may include: ??? 8 hours before your procedure ? Stop eating most foods. Do not eat meat, fried foods, or fatty foods. ? Eat only light foods, such as toast or crackers. ? All liquids are okay except energy drinks and alcohol. ??? 6 hours before your procedure ? Stop eating. ? Drink only clear liquids, such as water, clear fruit juice, black coffee, plain tea, and sports drinks. ? Do not drink energy drinks or alcohol. ??? 2 hours before your procedure ? Stop drinking all liquids. ? You may be allowed to take medicines with small sips of water. If you do not follow your health care provider's instructions, your procedure may be delayed or canceled. Medicines Ask your health care provider about: ??? Changing or stopping your regular medicines. These include any diabetes medicines or blood thinners you take. ??? Taking medicines such as aspirin and ibuprofen. These medicines can thin your blood. Do not take them unless your health care provider tells you to. ??? Taking lfyn-olu-ugqlhll medicines, vitamins, herbs, and supplements. Tests You may have tests done. These may include: ??? Blood tests to see how well your kidneys and liver are working. These may also be done to see how well your blood clots. ??? Urine tests. ??? Imaging studies, such as ultrasound or CT scan. Surgery safety Ask your health care provider: ??? How your surgery site will be marked. ??? What steps will be taken to help prevent infection. These may include: ? Removing hair at the surgery site. ? Washing skin with a soap that kills germs. ? Receiving antibiotics. General instructions ??? Do not use any products that contain nicotine or tobacco before the procedure. These products include cigarettes, chewing tobacco, and vaping devices, such as e-cigarettes. If you need help quitting, ask your health care provider. ??? If you will be going home right after the procedure, plan to have a responsible adult: ? Take you home from the hospital or clinic. You will not be allowed to drive. ? Care for you for the time you are told. What happens during the procedure? An IV will be inserted into one of your veins. ??? You may be given: ? A sedative. This helps you relax. ? Anesthesia. This will: ? Numb certain areas of your body. ? Make you fall asleep for surgery. ??? You will be positioned on your abdomen. ??? A needle will be inserted through your back and guided to your kidney. An imaging method will be used to help guide the needle. It uses X-ray images (fluoroscopy). ??? A dye will be injected through the needle. X-ray images will be taken of your kidney. ??? A wire will be passed through the needle. A tool called a dilator will be used to widen the path for the nephrostomy tube. The tube will be inserted over the wire and into your kidney. ??? The wire will be removed. The tube will be left in your kidney. The tube may be secured to your skin with stitches (sutures). ??? A bandage (dressing) will be placed on the tube site. ??? A drainage bag will be attached to the tube. Urine will drain from your kidney to this bag outside your body. The procedure may vary among health care providers and hospitals. What happens after the procedure? Your blood pressure, heart rate, breathing rate, and blood oxygen level will be monitored until you leave the hospital or clinic. ??? You will be taught how to care for the tube and drainage bag. ??? (more content not included)... [facility] 03-20-2025 Telephone encount er Note SERVICE DATE: March 20, 2025 SERVICE TIME: 1129 CONSULTING SERVICE: Interventional Radiology IMPRESSION/RECOMMENDATIONS Patsy was contacted today for follow up s/p placement of Nephrostomy/Nephroureteral catheter(s). - Nephrostomy/Nephroureteral tube(s) to gravity drainage with reported good output. Color clear/mario. - Discussed signs and symptoms of infection. - Reviewed how to manage common tube related problems and emergency situations. - Emergency telephone contact information reviewed. - Reviewed dressing changes and tube flushing. - Tube care supplies adequate - Routine tube change to be scheduled: NEPH TUBE CARE INSTRUCTIONS: 1) Leave drain to gravity at all times. 2) Gently cleanse area around drain insertion site with warm soap and water, rinse, pat dry and apply clean dry dressing every other day and PRN wet or soiled. 3) If catheter stops draining urine and/or patient develops, fever greater than 100.4 F, flank pain, saturated dressings, check catheter for kinks, and remove bag at luer lock connection to gently flush drain with 5 ml NS. 4) If questions or concerns were to arise please call interventional radiology nurse line at M-F 7am - 3:30 am. After hours please call or and ask the combiner operator to page the interventional commercial lending vice president conference services coordinator. 5) To change or schedule an appointment with interventional radiology please call scheduling at . Instructions for My Care at Home or Healthcare Facility Additional Health Information I Need to Know After I Leave theHospital:Symptoms of an Infection to Watch for Include: Fever Swelling Increase in Redness Pus Call your doctor if you: See signs of infection, such as redness, drainage, foul odor, or swelling at the tube site. Have a temperature higher than 100.4 F or 38 C. Develop shaking chills. Do not have relief from pain or the flow is not restored after flushing. See bright red blood in your urine (some pink-tinged urine is to be expected). Notice a foul odor in your urine. Watch for the following: Wet dressing Pain in your back or sides Little or no urine drainage If you have any of the above signs or symptoms, follow these steps: If your tube is already attached to a drainage bag, remove your dressing and check to see if the tube is kinked. If the tube is kinked, straighten the tube until fluid begins to flow. If fluid does not drain after removing the kink in the tube, you may need to gently flush the tube. If your tube is capped attach a drainage bag. Be sure the drainage bag is below the level of the tube site. Wound Care/Surgical Site Care: Keep the dressing that is over the tube site clean and dry. You may have a stitch holding your tube in place. If the stitch breaks, call your doctor. Your tube may have a lock that holds it in place. Do not open the lock. Always keep the bag below the tube site to allow proper drainage by gravity. Your dressing should be changed every other day or sooner if it becomes wet, soiled, falls off, or unless instructed otherwise. It is easier if someone helps you change the dressing. Change the drainage bag monthly.. It is important that the tube remain in the proper position and does not become kinked. You may shower. DO NOT swim or soak in water. Please refer to the YouTube video for nephrostomy tube care instructions and demonstrations. [email or web address] Activity and Exercise: (When I can drive, return to work) Rest when you get home after the procedure. We recommend a responsible adult stay with you overnight after the procedure. Avoid lying or sleeping on your back to prevent kinking of the tube. You may resume your normal activities 24 hours after the procedure. Follow-Up Appointment Reminders: (A list of any scheduled appointments is at the end of this document) For routine concerns please call Interventional Radiology nurse triage line [phone], Thursday - Thursday 9 a.m. - 4 p.m. After hours please call and ask for Interventional Radiology Fellow conference services coordinator, pager [phone]. In the event of acute symptoms report directly to local emergency department and notify the Department of Intervention Radiology after the fact. IR will contact you and schedule for follow up appointment will be set up for routine exchange in 4 weeks All questions and concerns were addressed. I spent 20 minutes on the above conversation with the patient. [facility] 03-20-2025 Miscellaneous Notes Formattin g of this note might be different from the original. SERVICE DATE: March 20, 2025 SERVICE TIME: 1129 CONSULTING SERVICE: Interventional Radiology IMPRESSION/RECOMMENDATIONS Patsy was contacted today for follow up s/p placement of Nephrostomy/Nephroureteral catheter(s). - Nephrostomy/Nephroureteral tube(s) to gravity drainage with reported good output. Color clear/mario. - Discussed signs and symptoms of infection. - Reviewed how to manage common tube related problems and emergency situations. - Emergency telephone contact information reviewed. - Reviewed dressing changes and tube flushing. - Tube care supplies adequate - Routine tube change to be scheduled: NEPH TUBE CARE INSTRUCTIONS: 1) Leave drain to gravity at all times. 2) Gently cleanse area around drain insertion site with warm soap and water, rinse, pat dry and apply clean dry dressing every other day and PRN wet or soiled. 3) If catheter stops draining urine and/or patient develops, fever greater than 100.4 F, flank pain, saturated dressings, check catheter for kinks, and remove bag at luer lock connection to gently flush drain with 5 ml NS. 4) If questions or concerns were to arise please call interventional radiology nurse line at M-F 7am - 3:30 am. After hours please call or and ask the combiner operator to page the interventional commercial lending vice president conference services coordinator. 5) To change or schedule an appointment with interventional radiology please call scheduling at . Instructions for My Care at Home or Healthcare Facility Additional Health Information I Need to Know After I Leave theHospital:Symptoms of an Infection to Watch for Include: Fever Swelling Increase in Redness Pus Call your doctor if you: See signs of infection, such as redness, drainage, foul odor, or swelling at the tube site. Have a temperature higher than 100.4 F or 38 C. Develop shaking chills. Do not have relief from pain or the flow is not restored after flushing. See bright red blood in your urine (some pink-tinged urine is to be expected). Notice a foul odor in your urine. Watch for the following: Wet dressing Pain in your back or sides Little or no urine drainage If you have any of the above signs or symptoms, follow these steps: If your tube is already attached to a drainage bag, remove your dressing and check to see if the tube is kinked. If the tube is kinked, straighten the tube until fluid begins to flow. If fluid does not drain after removing the kink in the tube, you may need to gently flush the tube. If your tube is capped attach a drainage bag. Be sure the drainage bag is below the level of the tube site. Wound Care/Surgical Site Care: Keep the dressing that is over the tube site clean and dry. You may have a stitch holding your tube in place. If the stitch breaks, call your doctor. Your tube may have a lock that holds it in place. Do not open the lock. Always keep the bag below the tube site to allow proper drainage by gravity. Your dressing should be changed every other day or sooner if it becomes wet, soiled, falls off, or unless instructed otherwise. It is easier if someone helps you change the dressing. Change the drainage bag monthly.. It is important that the tube remain in the proper position and does not become kinked. You may shower. DO NOT swim or soak in water. Please refer to the YouTube video for nephrostomy tube care instructions and demonstrations. [email or web address] Activity and Exercise: (When I can drive, return to work) Rest when you get home after the procedure. We recommend a responsible adult stay with you overnight after the procedure. Avoid lying or sleeping on your back to prevent kinking of the tube. You may resume your normal activities 24 hours after the procedure. Follow-Up Appointment Reminders: (A list of any scheduled appointments is at the end of this document) For routine concerns please call Interventional Radiology nurse triage line [phone], Thursday - Thursday 9 a.m. - 4 p.m. After hours please call and ask for Interventional Radiology Fellow conference services coordinator, pager [phone]. In the event of acute symptoms report directly to local emergency department and notify the Department of Intervention Radiology after the fact. IR will contact you and schedule for follow up appointment will be set up for routine exchange in 4 weeks All questions and concerns were addressed. I spent 20 minutes on the above conversation with the patient. documented in this encounter [facility] 03-16-2025 Note HNO ID: [id number] Author: DAX FORBES MD Service: Interventional Radiology Author Type: Physician Type: Procedures Filed: 03/16/2025 11:37 Note Text: BRIEF OPERATIVE / PROCEDURE NOTE LOG ID: [id number] SURGERY/PROCEDURE DATE: 03/16/2025 INCISION/PROCEDURE START TIME: 9:45 AM INCISION CLOSE/PROCEDURE END TIME: 11:26 AM SURGEON(S)/PROCEDURALIST(S) AND CARPENTER ASSISTANT(S): Surgeons and Role: * Dax Forbes MD - Primary No Additional Staff SURGERY/PROCEDURE(S): Bilateral PCN placement ANESTHESIA: Procedural Sedation FINDINGS: Successful bilateral 10 Latvian PCN (left DM and right BS) placement via inferior pole calyces. US pre-procedure showed moderate hydronephrosis on the left, but no hydronephrosis on the right. Clinical Education Coordinator showed indwelling bilateral double J stents and Suprapubic tube. Antegrade nephrostogram showed transit of contrast across the double J stent. ESTIMATED BLOOD LOSS: Less than 10 mls SPECIMENS: None COMPLICATIONS: None DRAINS: Unmodified 10 Fr Carter-French (left) and 10 Fr BosSci (right) CLOSURE TECHNIQUE: Non-primary PRE-OP/PRE-PROCEDURE DIAGNOSIS: Bladder dysfunction POST-OP/POST-PROCEDURE DIAGNOSIS: Same as Preop Patient was accompanied to the next level of care by a licensed practitioner from the surgical team pending completion of this brief op note (or operative note) SIGNATURE: Dax Forbes MD PATIENT NAME: Patsy Cunningham DATE: March 16, 2025 TIME: 11:34 AM [facility] 03-16-2025 Telephone encount er Note Tube Exchange Appointment Request Form Person filling out this form: Zohra Baldwin RN Date: March 16, 2025 Time: 11:27 AM Patient Name: Patsy Cunningham Patient What type of tube is this? Nephrostomy or nephroureteral (tube in the back) Does this tube need exchanged? Yes, How many weeks? 4 weeks Per physician direction, does this need to be physician specific? No Does this patient require DAVIN? No Per physician, can this exchange be done in the region? [place] ( [place] ) If the patient has an already existing exchange appointment can that one be cancelled? Yes Any other pertinent information needed for schedulers?bilateral [facility] 03-16-2025 Miscellaneous Notes Formattin g of this note might be different from the original. Tube Exchange Appointment Request Form Person filling out this form: Zohra Baldwin RN Date: March 16, 2025 Time: 11:27 AM Patient Name: Patsy Cunningham Patient What type of tube is this? Nephrostomy or nephroureteral (tube in the back) Does this tube need exchanged? Yes, How many weeks? 4 weeks Per physician direction, does this need to be physician specific? No Does this patient require DAVIN? No Per physician, can this exchange be done in the region? [place] ( [place] ) If the patient has an already existing exchange appointment can that one be cancelled? Yes Any other pertinent information needed for schedulers?bilateral documented in this encounter [facility] 03-08-2025 Telephone encount er Note Spoke with Patsy Herbert's that appointment is for ThursdayMarch 16 RADIOLOGY PROCEDURE INSTRUCTIONS: You are scheduled for a Nephrostomy Tube Placement, on February You are to arrive at 07:30 am and check in at [facility]: Radiology Outpatient Desk [facility]. You can expect to be here for 6-8 hours. Address: [place] [address] Diet: Do not eat any solid food after midnight the night before your procedure. You may drink clear liquids until 06:30 am the day of your procedure, which means black coffee, apple juice, tea, jello, Gatorade, or water only. Medications: Please take prescribed medications such as heart, blood pressure, anti-seizure, and chronic pain medications with a sip of clear liquids. Bring your current medication list. Radiology recommends these medication restrictions: If you are taking any medication that is a blood thinner, hypoglycemic, weight loss agent, etc., you may need to hold this medication prior to procedure. Not stopping the medication correctly may result in your procedure being canceled. If you are diabetic please contact your physician regarding diet restrictions and managing insulin/diabetes medications pre-procedure: Stop oral hypoglycemic the day of this procedure Hold short acting insulin the day of procedure Long acting insulin, take dose If on mixed insulin - if BG> than 200 take half the dose If BG less < 200- don't take Special concerns: It is okay to shower/bathe the morning of your procedure. There may be bathing restrictions post procedure. Do you have any attached medical devices? If yes, the device may need to be removed before entering the procedure room. Allergies: Allergies reviewed: Yes Do you have a contrast dye allergy? No. Labs: Lab work needs to be drawn? No. [place]/Transportation: How will you be arriving for your procedure? Private car. If you will be arriving via ambulance or public transportation, please call to discuss. You will need a responsible adult to accompany you to and from the procedure. We will verify your ride home upon arrival. Minors/visitors requiring supervision cannot accompany you unless there is another responsible adult with them. Child and/or dependent care arrangements need to be made. ___ If you need to cancel or reschedule your procedure, please call our user support analyst supervisor: Teo Johansen [phone]; 8am - 4pm M-F If you have any additional questions please call: [place] [facility] nurses desk at [phone] 8am - 4pm M-F. Option 1 [facility] 03-08-2025 Miscellaneous Notes Formattin g of this note might be different from the original. Spoke with Patsy Herbert's that appointment is for ThursdayMarch 16 RADIOLOGY PROCEDURE INSTRUCTIONS: You are scheduled for a Nephrostomy Tube Placement, on February You are to arrive at 07:30 am and check in at [facility]: Radiology Outpatient Desk [id number]. You can expect to be here for 6-8 hours. Address: [place] [address] Diet: Do not eat any solid food after midnight the night before your procedure. You may drink clear liquids until 06:30 am the day of your procedure, which means black coffee, apple juice, tea, jello, Gatorade, or water only. Medications: Please take prescribed medications such as heart, blood pressure, anti-seizure, and chronic pain medications with a sip of clear liquids. Bring your current medication list. Radiology recommends these medication restrictions: If you are taking any medication that is a blood thinner, hypoglycemic, weight loss agent, etc., you may need to hold this medication prior to procedure. Not stopping the medication correctly may result in your procedure being canceled. If you are diabetic please contact your physician regarding diet restrictions and managing insulin/diabetes medications pre-procedure: Stop oral hypoglycemic the day of this procedure Hold short acting insulin the day of procedure Long acting insulin, take dose If on mixed insulin - if BG> than 200 take half the dose If BG less < 200- don't take Special concerns: It is okay to shower/bathe the morning of your procedure. There may be bathing restrictions post procedure. Do you have any attached medical devices? If yes, the device may need to be removed before entering the procedure room. Allergies: Allergies reviewed: Yes Do you have a contrast dye allergy? No. Labs: Lab work needs to be drawn? No. [place]/Transportation: How will you be arriving for your procedure? Private car. If you will be arriving via ambulance or public transportation, please call to discuss. You will need a responsible adult to accompany you to and from the procedure. We will verify your ride home upon arrival. Minors/visitors requiring supervision cannot accompany you unless there is another responsible adult with them. Child and/or dependent care arrangements need to be made. ___ If you need to cancel or reschedule your procedure, please call our user support analyst supervisor: Aleisha Johansen and [place] [phone]; 8am - 4pm M-F If you have any additional questions please call: [place] [facility] nurses desk at [phone] 8am - 4pm M-F. Option 1 documented in this encounter [facility] 03-07-2025 Note Patient Education - Text Bond Catheter Care, Male A Bond catheter is a soft, flexible tube that is placed into the bladder to drain urine. The catheter has a balloon to hold it inside the bladder. A Bond catheter may be inserted if: ??? You leak urine or are not able to control when you urinate (urinary incontinence). ??? You are not able to urinate when you need to (urinary retention). ??? You had prostate surgery or surgery on the genitals. ??? You have certain medical conditions, such as multiple sclerosis, dementia, or a spinal cord injury. To Prevent Infection: 1. Wash your hands with soap and water before and after handling your catheter. 2. Using mild soap and warm water on a clean washcloth; twice a day. ??? Clean the area on your body closest to the catheter insertion site using a circular motion, moving away from the catheter. Never wipe toward the catheter because this could sweep bacteria up into the urethra and cause infection. ??? Remove all traces of soap. Pat the area dry with a clean towel and reposition the foreskin. No tub baths. No lotions, powders, or sprays unless directed by your physician. 3. Keep the tube secure. Do not let the tube pull or catch when you are moving around. ??? Attach the catheter to your leg so there is no tension on the catheter. Use adhesive tape or a leg strap. If you are using adhesive tape, remove any sticky residue left behind by the previous tape you used. 4. Replace wet leg straps with dry ones. 5. Wear cotton underwear to absorb moisture and keep pearl glue drier. 6. Keep the drainage bag below the level of the bladder, but keep it off the floor. 7. Check throughout the day to be sure the catheter is working and urine is draining freely. Make sure the tubing does not become kinked or looped. 8. Do not pull on the catheter or try to remove it. Pulling could damage internal tissues. TAKING CARE OF THE DRAINAGE BAGS You will be given two drainage bags to take home. One is a large overnight drainage bag, and the other is a smaller leg bag that fits underneath clothing. You may wear the overnight bag at any time, but you should never wear the smaller leg bag at night, unless directed by your physician. Follow the instructions below for how to empty and change your drainage bags. Emptying the Drainage Bag You must empty your drainage bag when it is ? full. 1. Wash your hands with soap and water before and after handling your catheter. 2. Keep the drainage bag below your hips, below the level of your bladder. This stops urine from going back into the tubing and into your bladder. 3. Hold the dirty bag over the toilet or a clean container. 4. Open the pour spout at the bottom of the bag and empty the urine into the toilet or container. Do not let the pour spout touch the toilet, container, or any other surface. Doing so can place bacteria on the bag, which can cause an infection. 5. Clean the pour spout with a gauze pad or cotton ball that has rubbing alcohol on it. 6. Close the pour spout. 7. Attach the bag to your leg with adhesive tape or a leg strap. Changing the Drainage Bag 1. Wash your hands with soap and water before and after handling your catheter. 2. Pinch off the rubber catheter so that urine does not spill out. 3. Disconnect the catheter tube from the drainage tube at the connection valve. Do not let the tubes touch any surface. 4. Clean the end of the catheter tube with an alcohol wipe. Use a different alcohol wipe to clean the end of the drainage tube. 5. Connect the catheter tube to the drainage tube of the clean drainage bag. 6. Attach the new bag to the leg with adhesive tape or a leg strap. Avoid attaching the new bag too tightly. 7. Place a cap on the drainage bag not in use and store in a clean towel. SEEK MEDICAL CARE IF: ??? Your urine is cloudy or smells. ??? Your catheter starts to leak. ??? Your catheter falls out or is pulled out. ??? You have pain, swelling, redness, or pus where the catheter enters the body. ??? You have pain in the abdomen, legs, lower back, or bladder. ??? You have a fever of 100.4 F (38 C) or higher ??? You see pink, red, dark, coffee colored, or pus-like urine. ??? You have nausea, vomiting, or chills. ??? You are not feeling better in 2 to 3 days or you are feeling worse. ??? You are not draining urine into the bag or your bladder feels full. MAKE SURE YOU: ??? Understand the reason you have the catheter. ??? Understand and follow these instructions to care for the catheter. ??? Will watch your condition. ??? Drink 6-8 glasses of water or liquids per day to keep your urine clear. ??? Avoid Caffeinated drinks. They can irritate the bladder and cause bladder spasms. ??? Keep your follow up appointments and call with any concerns. Urology Ureteral Stent Implantation, Care After The follo (more content not included)... [facility] 02-24-2025 Telephone encount er Note Summary: neph tube placement Order scanned in Waiting for previous imaging [facility] 02-24-2025 Miscellaneous Notes Summary: neph tube placement Order scanned in Waiting for previous imaging documented in this encounter [facility] 02-23-2025 Hospital Discharg e instructions Patient Education 02/23/2025 13:24:17 Percutaneous Nephrostomy Percutaneous Nephrostomy Percutaneous nephrostomy is a procedure to insert a flexible tube into the kidney. This is done to help urine leave the body when it cannot leave the kidney in the normal way. Urine is supposed to be carried from the kidneys to the bladder through narrow tubes called ureters. But a ureter can become blocked. This may be because of kidney stones, an infection, a blood clot, or an abnormal growth of cells (tumor). After the procedure, the nephrostomy tube will stay in place. Urine will drain from the kidney into a bag outside your body. This will help relieve pressure and prevent infection that could damage the kidney. Tell a health care provider about: Any allergies you have. All medicines you are taking, including vitamins, herbs, eye drops, creams, and szyi-mqb-qopsqsr medicines. Any problems you or family members have had with anesthesia. Any bleeding problems you have. Any surgeries you have had. Any medical conditions you have. Whether you are or may be . What are the risks? Your health care provider will talk with you about risks. These may include: Infection. Bleeding. Allergic reactions to the medicines or dyes used. Damage to other structures or organs. What happens before the procedure? When to stop eating and drinking Follow instructions from your health care provider about what you may eat and drink. These may include: 8 hours before your procedure ?Stop eating most foods. Do not eat meat, fried foods, or fatty foods. ?Eat only light foods, such as toast or crackers. ?All liquids are okay except energy drinks and alcohol. 6 hours before your procedure ?Stop eating. ?Drink only clear liquids, such as water, clear fruit juice, black coffee, plain tea, and sports drinks. ?Do not drink energy drinks or alcohol. 2 hours before your procedure ?Stop drinking all liquids. ?You may be allowed to take medicines with small sips of water. If you do not follow your health care provider's instructions, your procedure may be delayed or canceled. Medicines Ask your health care provider about: Changing or stopping your regular medicines. These include any diabetes medicines or blood thinners you take. Taking medicines such as aspirin and ibuprofen. These medicines can thin your blood. Do not take them unless your health care provider tells you to. Taking cphw-ard-yvmrwvt medicines, vitamins, herbs, and supplements. Tests You may have tests done. These may include: Blood tests to see how well your kidneys and liver are working. These may also be done to see how well your blood clots. Urine tests. Imaging studies, such as ultrasound or CT scan. Surgery safety Ask your health care provider: How your surgery site will be marked. What steps will be taken to help prevent infection. These may include: ?Removing hair at the surgery site. ?Washing skin with a soap that kills germs. ?Receiving antibiotics. General instructions Do not use any products that contain nicotine or tobacco before the procedure. These products include cigarettes, chewing tobacco, and vaping devices, such as e-cigarettes. If you need help quitting, ask your health care provider. If you will be going home right after the procedure, plan to have a responsible adult: ?Take you home from the hospital or clinic. You will not be allowed to drive. ?Care for you for the time you are told. What happens during the procedure? An IV will be inserted into one of your veins. You may be given: ?A sedative. This helps you relax. ?Anesthesia. This will: ?Numb certain areas of your body. ?Make you fall asleep for surgery. You will be positioned on your abdomen. A needle will be inserted through your back and guided to your kidney. An imaging method will be used to help guide the needle. It uses X-ray images (fluoroscopy). A dye will be injected through the needle. X-ray images will be taken of your kidney. A wire will be passed through the needle. A tool called a dilator will be used to widen the path for the nephrostomy tube. The tube will be inserted over the wire and into your kidney. The wire will be removed. The tube will be left in your kidney. The tube may be secured to your skin with stitches (sutures). A bandage (dressing) will be placed on the tube site. A drainage bag will be attached to the tube. Urine will drain from your kidney to this bag outside your body. The procedure may vary among health care providers and hospitals. What happens after the procedure? Your blood pressure, heart rate, breathing rate, and blood oxygen level will be monitored until you leave the hospital or clinic. You will be taught how to care for the tube and drainage bag. If you were given a sedative during the procedure, it can affect you for several hours. Do not drive or operate machinery until your health care provider says that it is safe. This information is not intended to replace advice given to you by your health care provider. Make sure you discuss any questions you have with your health care provider. Document Revised: 02/19/2023 Document Reviewed: 02/19/2023 [place] Patient Education 2023 [employer]. Follow Up Care 11/17/2024 15:35:53 With:Diego RICKS, OUSMANE Bell, URO Address: When: Unknown [facility] 02-23-2025 Note Patient Education Urology Percutaneous Nephrostomy Percutaneous nephrostomy is a procedure to insert a flexible tube into the kidney. This is done to help urine leave the body when it cannot leave the kidney in the normal way. Urine is supposed to be carried from the kidneys to the bladder through narrow tubes called ureters. But a ureter can become blocked. This may be because of kidney stones, an infection, a blood clot, or an abnormal growth of cells (tumor). After the procedure, the nephrostomy tube will stay in place. Urine will drain from the kidney into a bag outside your body. This will help relieve pressure and prevent infection that could damage the kidney. Tell a health care provider about: ??? Any allergies you have. ??? All medicines you are taking, including vitamins, herbs, eye drops, creams, and lubm-azs-eysnlhu medicines. ??? Any problems you or family members have had with anesthesia. ??? Any bleeding problems you have. ??? Any surgeries you have had. ??? Any medical conditions you have. ??? Whether you are or may be . What are the risks? Your health care provider will talk with you about risks. These may include: ??? Infection. ??? Bleeding. ??? Allergic reactions to the medicines or dyes used. ??? Damage to other structures or organs. What happens before the procedure? When to stop eating and drinking Follow instructions from your health care provider about what you may eat and drink. These may include: ??? 8 hours before your procedure ? Stop eating most foods. Do not eat meat, fried foods, or fatty foods. ? Eat only light foods, such as toast or crackers. ? All liquids are okay except energy drinks and alcohol. ??? 6 hours before your procedure ? Stop eating. ? Drink only clear liquids, such as water, clear fruit juice, black coffee, plain tea, and sports drinks. ? Do not drink energy drinks or alcohol. ??? 2 hours before your procedure ? Stop drinking all liquids. ? You may be allowed to take medicines with small sips of water. If you do not follow your health care provider's instructions, your procedure may be delayed or canceled. Medicines Ask your health care provider about: ??? Changing or stopping your regular medicines. These include any diabetes medicines or blood thinners you take. ??? Taking medicines such as aspirin and ibuprofen. These medicines can thin your blood. Do not take them unless your health care provider tells you to. ??? Taking ddri-kun-oxhtspl medicines, vitamins, herbs, and supplements. Tests You may have tests done. These may include: ??? Blood tests to see how well your kidneys and liver are working. These may also be done to see how well your blood clots. ??? Urine tests. ??? Imaging studies, such as ultrasound or CT scan. Surgery safety Ask your health care provider: ??? How your surgery site will be marked. ??? What steps will be taken to help prevent infection. These may include: ? Removing hair at the surgery site. ? Washing skin with a soap that kills germs. ? Receiving antibiotics. General instructions ??? Do not use any products that contain nicotine or tobacco before the procedure. These products include cigarettes, chewing tobacco, and vaping devices, such as e-cigarettes. If you need help quitting, ask your health care provider. ??? If you will be going home right after the procedure, plan to have a responsible adult: ? Take you home from the hospital or clinic. You will not be allowed to drive. ? Care for you for the time you are told. What happens during the procedure? An IV will be inserted into one of your veins. ??? You may be given: ? A sedative. This helps you relax. ? Anesthesia. This will: ? Numb certain areas of your body. ? Make you fall asleep for surgery. ??? You will be positioned on your abdomen. ??? A needle will be inserted through your back and guided to your kidney. An imaging method will be used to help guide the needle. It uses X-ray images (fluoroscopy). ??? A dye will be injected through the needle. X-ray images will be taken of your kidney. ??? A wire will be passed through the needle. A tool called a dilator will be used to widen the path for the nephrostomy tube. The tube will be inserted over the wire and into your kidney. ??? The wire will be removed. The tube will be left in your kidney. The tube may be secured to your skin with stitches (sutures). ??? A bandage (dressing) will be placed on the tube site. ??? A drainage bag will be attached to the tube. Urine will drain from your kidney to this bag outside your body. The procedure may vary among health care providers and hospitals. What happens after the procedure? Your blood pressure, heart rate, breathing rate, and blood oxygen level will be monitored until you leave the hospital or clinic. ??? You will be taught how to care for the tube and drainage bag. ??? (more content not included)... 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 08, 2025 1:54pm B12 deficiency chronic March 1:24pm Chemotherapy-induced peripheral neuropathy chronic March 1:24pm Encounter for chemotherapy management chronic March 182024 1:24pm Encounter for coordination of complex care chronic April 05 1:24pm History of anemia due to vitamin B12 deficiency chronic April 052024 1:24pm History of hemodialysis chronic A ugust 2024 1:24pm Iron deficiency anemia chronic Au shirin 2024 1:24pm 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 March 182024 1:24pm Rash and nonspecific skin eruption chronic April 05 1:24pm Steroid-induced diabetes mellitus chronic April 05 1:24pm Superficial thrombophlebitis of left upper extremity chronic April 05 1:24pm Urinary incontinence chronic Augu st 2024 1:24pm Acute renal failure on dialysis resolved April 05 1:24pm Anemia of renal disease inactive A ugust 2024 1:24pm [facility] Work Phone: [phone] 832-298805-28-2025 Hospital Discharge instructions Patient Education 01/11/2025 12:14:00 Urinary Tract Infection, Adult Urinary Tract Infection, Adult A urinary tract infection (UTI) is an infection of any part of the urinary tract. The urinary tractincludes the kidneys, ureters, bladder, and urethra. These organs make, store, and get rid of urinein the body. An upper UTI affects the ureters and kidneys. A lower UTI affects the bladder and urethra. What are the causes? Most urinary tract infections are caused by bacteria in your genital area around your urethra, where urine leaves your body. These bacteria grow and cause inflammation of your urinary tract. What increases the risk? You are more likely to develop this condition if: You have a urinary catheter that stays in place. You are not able to control when you urinate or have a bowel movement (incontinence). You are female and you: ?Use a spermicide or diaphragm for control. ?Have low estrogen levels. ?Are . You have certain genes that increase your risk. You are sexually active. You take antibiotic medicines. You have a condition that causes your flow of urine to slow down, such as: ?An enlarged prostate, if you are male. ?Blockage in your urethra. ?A kidney stone. ?A nerve condition that affects your bladder control (neurogenic bladder). ?Not getting enough to drink, or not urinating often. You have certain medical conditions, such as: ?Diabetes. ?A weak disease-fighting system (immunesystem). ?Sickle cell disease. ?Gout. ?Spinal cord injury. What are the signs or symptoms? Symptoms of this condition include: Needing to urinate right away (urgency). Frequent urination. This may include small amounts of urine each time you urinate. Pain or burning with urination. Blood in the urine. Urine that smells bad or unusual. Trouble urinating. Cloudy urine. Vaginal discharge, if you are female. Pain in the abdomen or the lower back. You may also have: Vomiting or a decreased appetite. Confusion. Irritability or tiredness. A fever or chills. Diarrhea. The first symptom in older adults may be confusion. In some cases, they may not have any symptoms until the infection has worsened. How is this diagnosed? This condition is diagnosed based on your medical history and a physical exam. You may also have other tests, including: Urine tests. Blood tests. Tests for STIs (sexually transmitted infections). If you have had more than one UTI, a cystoscopy or imaging studies may be done to determine the cause of the infections. How is this treated? Treatment for this condition includes: Antibiotic medicine. Uxwc-bcu-mivydax medicines to treat discomfort. Drinking enough water to stay hydrated. If you have frequent infections or have other conditions such as a kidney stone, you may need to see a health care provider who specializes in the urinary tract (urologist). In rare cases, urinary tract infections can cause sepsis. Sepsis is a life- threatening condition that occurs when the body responds to an infection. Sepsis is treated in the hospital with IV antibiotics, fluids, and other medicines. Follow these instructions at home: Medicines Take lnrr-ikm-ifuwawk and prescription medicines only as told by your health care provider. If you were prescribed an antibiotic medicine, take it as told by your health care provider. Do notstop using the antibiotic even if you start to feel better. General instructions Make sure you: ?Empty your bladder often and completely. Do not hold urine for long periods of time. ?Empty your bladder after sex. ?Wipe from front to back after urinating or having a bowel movement if you are female. Use each tissue only one time when you wipe. Drink enough fluid to keep your urine pale yellow. Keep all follow-up visits. This is important. Contact a health care provider if: Your symptoms do not get better after 1 2 days. Your symptoms go away and then return. Get help right away if: You have severe pain in your back or your lower abdomen. You have a fever or chills. You have nausea or vomiting. Summary A urinary tract infection (UTI) is an infection of any part of the urinary tract, which includes the kidneys, ureters, bladder, and urethra. Most urinary tract infections are caused by bacteria in your genital area. Treatment for this condition often includes antibiotic medicines. If you were prescribed an antibiotic medicine, take it as told by your health care provider. Do notstop using the antibiotic even if you start to feel better. Keep all follow-up visits. This is important. This information is not intended to replace advice given to you by your health care provider. Make sure you discuss any questions you have with your health care provider. Document Revised: 03/10/2021 Document Reviewed: 03/15/2021 [employer] Patient Education 2023 [employer]. Follow Up Care 12/21/2024 11:48:13 With:Pratima Reno PA-C, URL Address: When: Unknown Comments:RTC in 3 weeks for cath change [facility] 05-28-2025 NotePatient Education Obstetrics and Gynecology Urinary Tract Infection, Adult A urinary tract infection (UTI) is an infection of any part of the urinary tract. The urinary tractincludes the kidneys, ureters, bladder, and urethra. These organs make, store, and get rid of urinein the body. An upper UTI affects the ureters and kidneys. A lower UTI affects the bladder and urethra. What are the causes? Most urinary tract infections are caused by bacteria in your genital area around your urethra, where urine leaves your body. These bacteria grow and cause inflammation of your urinary tract. What increases the risk? You are more likely to develop this condition if: ??? You have a urinary catheter that stays in place. ??? You are not able to control when you urinate or have a bowel movement (incontinence). ??? You are female and you: ? Use a spermicide or diaphragm for control. ? Have low estrogen levels. ? Are . ??? You have certain genes that increase your risk. ??? You are sexually active. ??? You take antibiotic medicines. ??? You have a condition that causes your flow of urine to slow down, such as: ? An enlarged prostate, if you are male. ? Blockage in your urethra. ? A kidney stone. ? A nerve condition that affects your bladder control (neurogenic bladder). ? Not getting enough to drink, or not urinating often. ??? You have certain medical conditions, such as: ? Diabetes. ? A weak disease-fighting system (immunesystem). ? Sickle cell disease. ? Gout. ? Spinal cord injury. What are the signs or symptoms? Symptoms of this condition include: ??? Needing to urinate right away (urgency). ??? Frequent urination. This may include small amounts of urine each time you urinate. ??? Pain or burning with urination. ??? Blood in the urine. ??? Urine that smells bad or unusual. ??? Trouble urinating. ??? Cloudy urine. ??? Vaginal discharge, if you are female. ??? Pain in the abdomen or the lower back. You may also have: ??? Vomiting or a decreased appetite. ??? Confusion. ??? Irritability or tiredness. ??? A fever or chills. ??? Diarrhea. The first symptom in older adults may be confusion. In some cases, they may not have any symptoms until the infection has worsened. How is this diagnosed? This condition is diagnosed based on your medical history and a physical exam. You may also have other tests, including: ??? Urine tests. ??? Blood tests. ??? Tests for STIs (sexually transmitted infections). If you have had more than one UTI, a cystoscopy or imaging studies may be done to determine the cause of the infections. How is this treated? Treatment for this condition includes: ??? Antibiotic medicine. ??? Dudu-xvc-biwkzmk medicines to treat discomfort. ??? Drinking enough water to stay hydrated. If you have frequent infections or have other conditions such as a kidney stone, you may need to see a health care provider who specializes in the urinary tract (urologist). In rare cases, urinary tract infections can cause sepsis. Sepsis is a life- threatening condition that occurs when the body responds to an infection. Sepsis is treated in the hospital with IV antibiotics, fluids, and other medicines. Follow these instructions at home: Medicines ??? Take azxx-acr-pdkxpid and prescription medicines only as told by your health care provider. ??? If you were prescribed an antibiotic medicine, take it as told by your health care provider. Donot stop using the antibiotic even if you start to feel better. General instructions ??? Make sure you: ? Empty your bladder often and completely. Do not hold urine for long periods of time. ? Empty your bladder after sex. ? Wipe from front to back after urinating or having a bowel movement if you are female. Use each tissue only one time when you wipe. ??? Drink enough fluid to keep your urine pale yellow. ??? Keep all follow-up visits. This is important. Contact a health care provider if: ??? Your symptoms do not get better after 1?2 days. ??? Your symptoms go away and then return. Get help right away if: ??? You have severe pain in your back or your lower abdomen. ??? You have a fever or chills. ??? You have nausea or vomiting. Summary ??? A urinary tract infection (UTI) is an infection of any part of the urinary tract, which includes the kidneys, ureters, bladder, and urethra. ??? Most urinary tract infections are caused by bacteria in your genital area. ??? Treatment for this condition often includes antibiotic medicines. ??? If you were prescribed an antibiotic medicine, take it as told by your health care provider. Donot stop using the antibiotic even if you start to feel better. ??? Keep all follow-up visits. This is important. This information is not intended to replace advice given to you by your health care provider. 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 January 03, 2025 2:39pm Hyperkalemia inactive January 03 2:39pm Stage 3b chronic kidney dise ase (CKD) deleted January 03, 2025 2 :39pm Anemia of chronic renal fail ure, stage 4 (severe) acute February 08, 2025 1:54pm B12 deficiency chronic February 08, 2025 1:54pm Encounter for coordination o f complex care chronic February 08, 2025 1:54pm History of hemodialysis chronic J une 2024 1:54pm 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 February 08, 2025 1:54pm Steroid-induced diabetes mellitus ch ronic February 08, 2025 1:54pm B12 deficiency chronic February 08, 2025 2:04pm Chemotherapy-induced periphe ral neuropathy chronic February 08, 2025 2:04pm Encounter for chemotherapy management chronic February 08, 2025 2:04pm Encounter for coordination o f complex care chronic February 08, 2025 2:04pm History of anemia due to vit etienne B12 deficiency chronic February 08, 2025 2:04pm History of hemodialysis chronic J une 2024 2:04pm Iron deficiency anemia chronic Ju 2024 2:04pm 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 February 08, 2025 2:04pm Rash and nonspecific skin eruption chronic February 08, 2025 2:04pm Steroid-induced diabetes mellitus ch ronic February 08, 2025 2:04pm Superficial thrombophlebitis of left upper extremity chronic February 08, 2025 2:04pm Urinary incontinence chronic February 08, 2025 2:04pm Acute renal failure on dialysis reso lved February 08, 2025 2:04pm Anemia of renal disease inactive J une 2024 2:04pm [facility] Work Phone: 1(308) 109-749605-07-2025 NotePatient Education Obstetrics and Gynecology Urinary Tract Infection, Adult A urinary tract infection (UTI) is an infection of any part of the urinary tract. The urinary tractincludes the kidneys, ureters, bladder, and urethra. These organs make, store, and get rid of urinein the body. An upper UTI affects the ureters and kidneys. A lower UTI affects the bladder and urethra. What are the causes? Most urinary tract infections are caused by bacteria in your genital area around your urethra, where urine leaves your body. These bacteria grow and cause inflammation of your urinary tract. What increases the risk? You are more likely to develop this condition if: ??? You have a urinary catheter that stays in place. ??? You are not able to control when you urinate or have a bowel movement (incontinence). ??? You are female and you: ? Use a spermicide or diaphragm for control. ? Have low estrogen levels. ? Are . ??? You have certain genes that increase your risk. ??? You are sexually active. ??? You take antibiotic medicines. ??? You have a condition that causes your flow of urine to slow down, such as: ? An enlarged prostate, if you are male. ? Blockage in your urethra. ? A kidney stone. ? A nerve condition that affects your bladder control (neurogenic bladder). ? Not getting enough to drink, or not urinating often. ??? You have certain medical conditions, such as: ? Diabetes. ? A weak disease-fighting system (immunesystem). ? Sickle cell disease. ? Gout. ? Spinal cord injury. What are the signs or symptoms? Symptoms of this condition include: ??? Needing to urinate right away (urgency). ??? Frequent urination. This may include small amounts of urine each time you urinate. ??? Pain or burning with urination. ??? Blood in the urine. ??? Urine that smells bad or unusual. ??? Trouble urinating. ??? Cloudy urine. ??? Vaginal discharge, if you are female. ??? Pain in the abdomen or the lower back. You may also have: ??? Vomiting or a decreased appetite. ??? Confusion. ??? Irritability or tiredness. ??? A fever or chills. ??? Diarrhea. The first symptom in older adults may be confusion. In some cases, they may not have any symptoms until the infection has worsened. How is this diagnosed? This condition is diagnosed based on your medical history and a physical exam. You may also have other tests, including: ??? Urine tests. ??? Blood tests. ??? Tests for STIs (sexually transmitted infections). If you have had more than one UTI, a cystoscopy or imaging studies may be done to determine the cause of the infections. How is this treated? Treatment for this condition includes: ??? Antibiotic medicine. ??? Igcl-uzf-kguwcwa medicines to treat discomfort. ??? Drinking enough water to stay hydrated. If you have frequent infections or have other conditions such as a kidney stone, you may need to see a health care provider who specializes in the urinary tract (urologist). In rare cases, urinary tract infections can cause sepsis. Sepsis is a life- threatening condition that occurs when the body responds to an infection. Sepsis is treated in the hospital with IV antibiotics, fluids, and other medicines. Follow these instructions at home: Medicines ??? Take wxxa-usu-irrhjqn and prescription medicines only as told by your health care provider. ??? If you were prescribed an antibiotic medicine, take it as told by your health care provider. Donot stop using the antibiotic even if you start to feel better. General instructions ??? Make sure you: ? Empty your bladder often and completely. Do not hold urine for long periods of time. ? Empty your bladder after sex. ? Wipe from front to back after urinating or having a bowel movement if you are female. Use each tissue only one time when you wipe. ??? Drink enough fluid to keep your urine pale yellow. ??? Keep all follow-up visits. This is important. Contact a health care provider if: ??? Your symptoms do not get better after 1?2 days. ??? Your symptoms go away and then return. Get help right away if: ??? You have severe pain in your back or your lower abdomen. ??? You have a fever or chills. ??? You have nausea or vomiting. Summary ??? A urinary tract infection (UTI) is an infection of any part of the urinary tract, which includes the kidneys, ureters, bladder, and urethra. ??? Most urinary tract infections are caused by bacteria in your genital area. ??? Treatment for this condition often includes antibiotic medicines. ??? If you were prescribed an antibiotic medicine, take it as told by your health care provider. Donot stop using the antibiotic even if you start to feel better. ??? Keep all follow-up visits. This is important. This information is not intended to replace advice given to you by your health care provider. Make sure you di (more content not included)...[facility]04-03-2025 NotePatient Education Urology Suprapubic Catheter Replacement Suprapubic catheter replacement is a procedure to remove an old catheter and insert a new, clean catheter. A suprapubic catheter is a soft tube that drains pee (urine) from the bladder into a collection bag [...] suprapubic catheters need to be replaced every 4?6 weeks, or as often as told by your health care provider. What are the risks? Your provider will talk with you about risks. These may include failure to get the catheter into the bladder. What happens before the procedure? You may have an exam or testing, including a blood or pee sample. ??? Ask your provider what steps will be taken to help prevent infection. What happens during the procedure? You will lie on your back. ??? The water from the balloon will be removed using a syringe. ??? The catheter will be slowly removed. ??? Lubricant will be applied to the end of the new catheter that will go into your bladder. ??? The new catheter will be inserted through the opening in your abdomen. Your provider will slidethe catheter into your bladder. ??? Your provider will wait for some pee to start flowing through the catheter. When this happens, a syringe will be used to fill the balloon with sterile water. ??? A collection bag will be attached to the end of the catheter. The procedure may vary among providers and hospitals. What can I expect after procedure? After the procedure, it is common to have some discomfort around the opening in your abdomen. Follow these instructions at home: Caring for the skin around the catheter Use a clean washcloth and soapy water to clean the skin around your catheter every day. Pat the area dry with a clean towel. ??? Do not pull on the catheter. ??? Do not use ointment or lotion on this area unless told by your provider. ??? Check the skin around the catheter every day for signs of infection. Check for: ? Redness, swelling, or pain. ? Fluid or blood. ? Warmth. ? Pus or a bad smell. Caring for the catheter ??? Clean the catheter with soap and water as often as told by your provider. ??? Always make sure there are no twists, curls, or kinks in the catheter. ??? As soon as you are able to move, you may use a leg bag to collect the pee. ? Make sure that the tubing is straight and has no kinks. ? Wrap an damon bandage gently over the tubing and around your leg to minimize the risk of the bag getting pulled out. Emptying the collection bag Empty the large collection bag every 8 hours. Empty the small collection bag when it is about ? full. To empty your large or small collection bag, take the following steps: ??? Always keep the bag below the level of the catheter. This keeps pee from flowing backward into the catheter. ??? Hold the bag over the toilet or another container. Turn the valve (spigot) at the bottom of thebag to empty the pee. ? Do not touch the opening of the spigot. ? Do not let the opening touch the toilet or container. ??? Close the spigot tightly when the bag is empty. Cleaning the collection bag ??? Wash your hands with soap and water for at least 20 seconds. If soap and water are not available, use hand patient access registrar. ??? Disconnect the bag from the catheter and immediately attach a new bag to the catheter. ??? Empty the used bag completely. ??? Clean the used bag according to the hide house supervisor's instructions, or as told by your provider. ??? Let the bag dry completely, and put it in a clean plastic bag before storing it. General instructions ??? Always wash your hands before and after caring for your catheter and collection bag. Use soap and water. If soap and water are not available, use hand patient access registrar. ??? Always make sure there are no leaks in the catheter or collection bag. ??? Drink enough fluid to keep your pee pale yellow. ??? If you were prescribed an antibiotic medicine, take it as told by your provider. Do not stop taking the antibiotic even if you start to feel better. ??? Do not take baths, swim, or use a hot tub. ??? Keep all follow-up visits. Your provider who will monitor any symptoms and may need to change your treatment. Contact a health care provider if: ??? You have signs of infection around your catheter opening. ??? You have a fever or chills. ??? There is a change in the color or smell of your pee. ??? You have vomiting that does not stop. ??? You have back pain. ??? 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 October 04, 2024 3:21pm Hyperkalemia inactive September 3:21pm Stage 3b chronic kidney dise ase (CKD) deleted October 04 025 3:21pm Anemia of chronic renal failure, stage 4 (severe) acute Februa 2024 12:57pm B12 deficiency chronic September 182024 12:57pm Encounter for coordination o f complex care chronic October 06 12:57pm History of hemodialysis chronic F ebruary 2024 12:57pm 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 October 06, 2024 12:57pm Steroid-induced diabetes mellitus chronic October 06 12:57pm B12 deficiency chronic September 182024 1:24pm Chemotherapy-induced periphe ral neuropathy chronic October 06 1:24pm Encounter for chemotherapy management chronic October 06 1:24pm Encounter for coordination o f complex care chronic October 06 1:24pm History of anemia due to vitamin B12 deficiency chronic October 06, 2024 1:24pm History of hemodialysis chronic F 2024 1:24pm Iron deficiency anemia chronic Fe 2024 1:24pm 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 October 06, 2024 1:24pm Rash and nonspecific skin eruption chronic October 06 1:24pm Steroid-induced diabetes mellitus chronic October 06 1:24pm Superficial thrombophlebitis of left upper extremity chronic October 062024 1:24pm Urinary incontinence chronic ua2024 1:24pm Acute renal failure on dialysis reso lved October 06, 2024 1:24pm Anemia of renal disease inactive 2024 1:24pm [facility] Work Phone: 1(847) 576-213802-18-2025 Evaluation note* Diagnosis Onset Date Resolution Status Admit Date Anemia of chronic renal failure, stage 4 (severe) acute 2024 3:21pm 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 October 04 025 3:21pm Hypophosphatemia acute October 04, 2024 3:21pm History of anemia due to vitamin B12 deficiency chronic October 04, 2024 3:21pm 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 October 04, 2024 3:21pm Hyperkalemia inactive September 3:21pm Stage 3b chronic kidney dise ase (CKD) deleted October 04 2 025 3:21pm Anemia of chronic renal failure, stage 4 (severe) acute 2024 12:57pm B12 deficiency chronic September 182024 12:57pm Encounter for coordination o f complex care chronic October 06 12:57pm History of hemodialysis chronic F 2024 12:57pm 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 October 06, 2024 12:57pm Steroid-induced diabetes mellitus chronic October 06 12:57pm B12 deficiency chronic October 11:25am Chemotherapy-induced periphe ral neuropathy chronic November 11, 2024 11:25am Encounter for chemotherapy management chronic November 11, 2024 11:25am Encounter for coordination o f complex care chronic November 11, 2024 11:25am History of anemia due to vitamin B12 deficiency chronic October 11:25am History of hemodialysis chronic [facility] 2024 11:25am Iron deficiency anemia chronic [facility] 2024 11:25am 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 October 04, 2024 3:21pm Hyperkalemia inactive September 3:21pm Stage 3b chronic kidney dise ase (CKD) deleted October 04 2 025 3:21pm Anemia of chronic renal failure, stage 4 (severe) acute 2024 12:57pm B12 deficiency chronic September 182024 12:57pm Encounter for coordination o f complex care chronic October 06 12:57pm History of hemodialysis chronic F ebruary 2024 12:57pm 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 October 06, 2024 12:57pm Steroid-induced diabetes mellitus chronic October 06 12:57pm B12 deficiency chronic November 11:25am Chemotherapy-induced periphe ral neuropathy chronic December 14, 2024 11:25am Encounter for chemotherapy management chronic December 14, 2024 11:25am Encounter for coordination o f complex care chronic December 14, 2024 11:25am History of anemia due to vitamin B12 deficiency chronic November 11:25am History of hemodialysis chronic A pril 2024 11:25am Iron deficiency anemia chronic Ap ril 2024 11:25am 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 December 14 11:25am Rash and nonspecific skin eruption chronic December 14, 2024 11:25am Steroid-induced diabetes mellitus chronic December 14, 2024 11:25am Superficial thrombophlebitis of left upper extremity chronic December 14, 2024 11:25am Urinary incontinence chronic Apri l 2024 11:25am Acute renal failure on dialysis reso lved December 14, 2024 11:25am Anemia of renal disease inactive A pril 2024 11:25am [facility] Work Phone: [phone]) 197-809502-17-2025 NotePatient Education Obstetrics and Gynecology Urinary Tract Infection, Adult A urinary tract infection (UTI) is an infection of any part of the urinary tract. The urinary tractincludes the kidneys, ureters, bladder, and urethra. These organs make, store, and get rid of urinein the body. An upper UTI affects the ureters and kidneys. A lower UTI affects the bladder and urethra. What are the causes? Most urinary tract infections are caused by bacteria in your genital area around your urethra, where urine leaves your body. These bacteria grow and cause inflammation of your urinary tract. What increases the risk? You are more likely to develop this condition if: ??? You have a urinary catheter that stays in place. ??? You are not able to control when you urinate or have a bowel movement (incontinence). ??? You are female and you: ? Use a spermicide or diaphragm for control. ? Have low estrogen levels. ? Are . ??? You have certain genes that increase your risk. ??? You are sexually active. ??? You take antibiotic medicines. ??? You have a condition that causes your flow of urine to slow down, such as: ? An enlarged prostate, if you are male. ? Blockage in your urethra. ? A kidney stone. ? A nerve condition that affects your bladder control (neurogenic bladder). ? Not getting enough to drink, or not urinating often. ??? You have certain medical conditions, such as: ? Diabetes. ? A weak disease-fighting system (immunesystem). ? Sickle cell disease. ? Gout. ? Spinal cord injury. What are the signs or symptoms? Symptoms of this condition include: ??? Needing to urinate right away (urgency). ??? Frequent urination. This may include small amounts of urine each time you urinate. ??? Pain or burning with urination. ??? Blood in the urine. ??? Urine that smells bad or unusual. ??? Trouble urinating. ??? Cloudy urine. ??? Vaginal discharge, if you are female. ??? Pain in the abdomen or the lower back. You may also have: ??? Vomiting or a decreased appetite. ??? Confusion. ??? Irritability or tiredness. ??? A fever or chills. ??? Diarrhea. The first symptom in older adults may be confusion. In some cases, they may not have any symptoms until the infection has worsened. How is this diagnosed? This condition is diagnosed based on your medical history and a physical exam. You may also have other tests, including: ??? Urine tests. ??? Blood tests. ??? Tests for STIs (sexually transmitted infections). If you have had more than one UTI, a cystoscopy or imaging studies may be done to determine the cause of the infections. How is this treated? Treatment for this condition includes: ??? Antibiotic medicine. ??? Bsmn-enb-rwvhjwk medicines to treat discomfort. ??? Drinking enough water to stay hydrated. If you have frequent infections or have other conditions such as a kidney stone, you may need to see a health care provider who specializes in the urinary tract (urologist). In rare cases, urinary tract infections can cause sepsis. Sepsis is a life- threatening condition that occurs when the body responds to an infection. Sepsis is treated in the hospital with IV antibiotics, fluids, and other medicines. Follow these instructions at home: Medicines ??? Take iuyd-jfv-xycsium and prescription medicines only as told by your health care provider. ??? If you were prescribed an antibiotic medicine, take it as told by your health care provider. Donot stop using the antibiotic even if you start to feel better. General instructions ??? Make sure you: ? Empty your bladder often and completely. Do not hold urine for long periods of time. ? Empty your bladder after sex. ? Wipe from front to back after urinating or having a bowel movement if you are female. Use each tissue only one time when you wipe. ??? Drink enough fluid to keep your urine pale yellow. ??? Keep all follow-up visits. This is important. Contact a health care provider if: ??? Your symptoms do not get better after 1?2 days. ??? Your symptoms go away and then return. Get help right away if: ??? You have severe pain in your back or your lower abdomen. ??? You have a fever or chills. ??? You have nausea or vomiting. Summary ??? A urinary tract infection (UTI) is an infection of any part of the urinary tract, which includes the kidneys, ureters, bladder, and urethra. ??? Most urinary tract infections are caused by bacteria in your genital area. ??? Treatment for this condition often includes antibiotic medicines. ??? If you were prescribed an antibiotic medicine, take it as told by your health care provider. Donot stop using the antibiotic even if you start to feel better. ??? Keep all follow-up visits. This is important. This information is not intended to replace advice given to you by your health care provider. Make sure you di (more content not included)...[facility]01-23-2025 Hospital Discharge instructions Patient Education 09/08/2024 15:50:33 Antibiotic Medicine, Adult Antibiotic Medicine, Adult Antibiotic medicines are used to treat infections caused by bacteria. These medicines do not work for illnesses caused by viruses. Antibiotics work by killing the bacteria that are making you sick, but they can also have serious side effects. Antibiotics must be used safely and only when needed. When do I need to take antibiotics? You may need antibiotics for: A urinary tract infection (UTI). Strep throat. Bacterial sinus infection. Meningitis. Serious lung infections. Your health care provider may start you on antibiotics while you are waiting for test results. Tests may include a culture of the throat, urine, blood, or mucus. Your health care provider may change or stop your antibiotic depending on your test results. When are antibiotics not needed? You do not need antibiotics for most common illnesses. These illnesses may be caused by a virus, not by bacteria. You do not need antibiotics for: The common cold. The flu (influenza). Sore throat. Discolored mucus. Bronchitis. Antibiotics are not always needed for all infections caused by bacteria. Many of these infections clear up on their own. Do not take antibiotics when they are not needed. How long should I take my antibiotic? You must take the entire amount prescribed to you. Take your antibiotics as told by your health care provider. Do not stop taking your antibiotics even if you start to feel better. If you stop takingthem too soon: You may feel sick again. Your infection may get harder to treat. Each course of antibiotics needs a different length of time to work. The length of time may vary from a few days to a few weeks. What if I miss a dose? Try not to miss any doses of medicine. If you miss a dose, call your health care provider or pharmacist for help. Sometimes, it is okay to take the missed dose as soon as possible. Do not take doubleor extra doses. What are the risks of taking antibiotics? Antibiotics can cause: Allergic reactions. Nausea. Yeast infections. Liver problems. Antibiotics can also cause an infection called Clostridioides difficile (C. difficile or C. diff), which causes severe diarrhea. This infection happens when the antibiotics kill the healthy bacteria in your intestines. This allows C. diff to grow. C. diff needs to be treated right away. Let your health care provider know if: You have diarrhea while taking an antibiotic. You have diarrhea after you stop taking an antibiotic. C. diff infection can start weeks after stopping the antibiotic. Taking an antibiotic also puts you at risk for getting sick in the future with bacteria that do notrespond to medicine (antibiotic-resistant infection). Antibiotics can cause bacteria to change so that if the antibiotic is taken again, the medicine cannot kill the bacteria. These infections can bemore serious because they are hard, or sometimes impossible, to treat. Do antibiotics affect control? control pills may not work while you are taking antibiotics. If you are taking control pills: Keep taking them as usual. Use a second form of control, such as a condom, to avoid unwanted . Do this for as long as told by your health care provider. What else should I know about taking antibiotics? Take antibiotics exactly as told. Take the correct amount of medicine at the same time each day. Ask your health care provider: ?How long to wait between doses. ?If you should take your antibiotic with food or water. ?If you should avoid certain foods, drinks, or medicines while taking your antibiotics. ?If you need to watch for any side effects. Use only the antibiotics prescribed to you by your health care provider. Do not use antibiotics prescribed for someone else. Drink a large glass of water when taking your antibiotics unless told otherwise. Drink enough fluidto keep your urine pale yellow. Ask your pharmacist for a dosage syringe, cup, or spoon that correctly measures your antibiotics. Ask your pharmacist or health care provider how to safely get rid of leftover medicine. Follow these instructions at home: Take your antibiotics as told by your health care provider. Do not stop taking your antibiotics even if you start to feel better. Return to your normal activities as told by your health care provider. Ask your health care provider what activities are safe for you. Contact a health care provider if: Your symptoms get worse. You have new joint pain or muscle aches that begin after starting your antibiotic. You have side effects from your antibiotic, such as: ?Stomach pain. ?Diarrhea. ?Nausea. ?White patches in your mouth or throat. Get help right away if: You have signs of a severe allergic reaction to antibiotics. If you have any of these signs, stop taking the antibiotic right away. Signs may include: ?Raised, itchy, red bumps on your skin (hives). ?Skin rash. ?Trouble breathing. ?High-pitched whistling sounds when you breathe, most often when you breathe out (wheezing). ?Swelling anywhere on your body. ?Feeling dizzy. ?Vomiting. You have signs of liver problems, such as: ?Dark or blood-colored urine. ?Yellow color to your skin. ?Bruising or bleeding easily. You have severe diarrhea, bloody diarrhea, or stomach cramps. You have a severe headache. These symptoms may be an emergency. Get help right away. Call 911. Do not wait to see if the symptoms will go away. Do not drive yourself to the hospital. This information is not intended to replace advice given to you by your health care provider. Make sure you discuss any questions you have with your health care provider. Document Revised: 03/03/2023 Document Reviewed: 03/03/2023 [employer] Patient Education 2023 [employer]. 09/08/2024 15:50:32 Urinary Tract Infection, Adult Urinary Tract Infection, Adult A urinary tract infection (UTI) is an infection of any part of the urinary tract. The urinary tractincludes the kidneys, ureters, bladder, and urethra. These organs make, store, and get rid of urinein the body. An upper UTI affects the ureters and kidneys. A lower UTI affects the bladder and urethra. What are the causes? Most urinary tract infections are caused by bacteria in your genital area around your urethra, where urine leaves your body. These bacteria grow and cause inflammation of your urinary tract. What increases the risk? You are more likely to develop this condition if: You have a urinary catheter that stays in place. You are not able to control when you urinate or have a bowel movement (incontinence). You are female and you: ?Use a spermicide or diaphragm for control. ?Have low estrogen levels. ?Are . You have certain genes that increase your risk. You are sexually active. You take antibiotic medicines. You have a condition that causes your flow of urine to slow down, such as: ?An enlarged prostate, if you are male. ?Blockage in your urethra. ?A kidney stone. ?A nerve condition that affects your bladder control (neurogenic bladder). ?Not getting enough to drink, or not urinating often. You have certain medical conditions, such as: ?Diabetes. ?A weak disease-fighting system (immunesystem). ?Sickle cell disease. ?Gout. ?Spinal cord injury. What are the signs or symptoms? Symptoms of this condition include: Needing to urinate right away (urgency). Frequent urination. This may include small amounts of urine each time you urinate. Pain or burning with urination. Blood in the urine. Urine that smells bad or unusual. Trouble urinating. Cloudy urine. Vaginal discharge, if you are female. Pain in the abdomen or the lower back. You may also have: Vomiting or a decreased appetite. Confusion. Irritability or tiredness. A fever or chills. Diarrhea. The first symptom in older adults may be confusion. In some cases, they may not have any symptoms until the infection has worsened. How is this diagnosed? This condition is diagnosed based on your medical history and a physical exam. You may also have other tests, including: Urine tests. Blood tests. Tests for STIs (sexually transmitted infections). If you have had more than one UTI, a cystoscopy or imaging studies may be done to determine the cause of the infections. How is this treated? Treatment for this condition includes: Antibiotic medicine. Inac-egg-wuqlmbl medicines to treat discomfort. Drinking enough water to stay hydrated. If you have frequent infections or have other conditions such as a kidney stone, you may need to see a health care provider who specializes in the urinary tract (urologist). In rare cases, urinary tract infections can cause sepsis. Sepsis is a life- threatening condition that occurs when the body responds to an infection. Sepsis is treated in the hospital with IV antibiotics, fluids, and other medicines. Follow these instructions at home: Medicines Take arbf-vpf-swxwclp and prescription medicines only as told by your health care provider. If you were prescribed an antibiotic medicine, take it as told by your health care provider. Do notstop using the antibiotic even if you start to feel better. General instructions Make sure you: ?Empty your bladder often and completely. Do not hold urine for long periods of time. ?Empty your bladder after sex. ?Wipe from front to back after urinating or having a bowel movement if you are female. Use each tissue only one time when you wipe. Drink enough fluid to keep your urine pale yellow. Keep all follow-up visits. This is important. Contact a health care provider if: Your symptoms do not get better after 1 2 days. Your symptoms go away and then return. Get help right away if: You have severe pain in your back or your lower abdomen. You have a fever or chills. You have nausea or vomiting. Summary A urinary tract infection (UTI) is an infection of any part of the urinary tract, which includes the kidneys, ureters, bladder, and urethra. Most urinary tract infections are caused by bacteria in your genital area. Treatment for this condition often includes antibiotic medicines. If you were prescribed an antibiotic medicine, take it as told by your health care provider. Do notstop using the antibiotic even if you start to feel better. Keep all follow-up visits. This is important. This information is not intended to replace advice given to you by your health care provider. Make sure you discuss any questions you have with your health care provider. Document Revised: 03/10/2021 Document Reviewed: 03/15/2021 [employer] Patient Education 2023 [employer]. Follow Up Care 08/16/2024 12:31:05 With:CARLEY Damian APRN, CARIDAD Forte, URL Address: When: Unknown Comments:3 wk cath change [facility] 01-23-2025 NotePatient Education Caregiving Antibiotic Medicine, Adult Antibiotic medicines are used to treat infections caused by bacteria. These medicines do not work for illnesses caused by viruses. Antibiotics work by killing the bacteria that are making you sick, but they can also have serious side effects. Antibiotics must be used safely and only when needed. When do I need to take antibiotics? You may need antibiotics for: ??? A urinary tract infection (UTI). ??? Strep throat. ??? Bacterial sinus infection. ??? Meningitis. ??? Serious lung infections. Your health care provider may start you on antibiotics while you are waiting for test results. Tests may include a culture of the throat, urine, blood, or mucus. Your health care provider may change or stop your antibiotic depending on your test results. When are antibiotics not needed? You do not need antibiotics for most common illnesses. These illnesses may be caused by a virus, not by bacteria. You do not need antibiotics for: ??? The common cold. ??? The flu (influenza). ??? Sore throat. ??? Discolored mucus. ??? Bronchitis. Antibiotics are not always needed for all infections caused by bacteria. Many of these infections clear up on their own. Do not take antibiotics when they are not needed. How long should I take my antibiotic? You must take the entire amount prescribed to you. Take your antibiotics as told by your health care provider. Do not stop taking your antibiotics even if you start to feel better. If you stop takingthem too soon: ??? You may feel sick again. ??? Your infection may get harder to treat. Each course of antibiotics needs a different length of time to work. The length of time may vary from a few days to a few weeks. What if I miss a dose? Try not to miss any doses of medicine. If you miss a dose, call your health care provider or pharmacist for help. Sometimes, it is okay to take the missed dose as soon as possible. Do not take doubleor extra doses. What are the risks of taking antibiotics? Antibiotics can cause: ??? Allergic reactions. ??? Nausea. ??? Yeast infections. ??? Liver problems. Antibiotics can also cause an infection called Clostridioides difficile (C. difficile or C. diff), which causes severe diarrhea. This infection happens when the antibiotics kill the healthy bacteria in your intestines. This allows C. diff to grow. C. diff needs to be treated right away. Let your health care provider know if: ??? You have diarrhea while taking an antibiotic. ??? You have diarrhea after you stop taking an antibiotic. C. diff infection can start weeks after stopping the antibiotic. Taking an antibiotic also puts you at risk for getting sick in the future with bacteria that do notrespond to medicine (antibiotic-resistant infection). Antibiotics can cause bacteria to change so that if the antibiotic is taken again, the medicine cannot kill the bacteria. These infections can bemore serious because they are hard, or sometimes impossible, to treat. Do antibiotics affect control? control pills may not work while you are taking antibiotics. If you are taking control pills: ??? Keep taking them as usual. ??? Use a second form of control, such as a condom, to avoid unwanted . Do this for as long as told by your health care provider. What else should I know about taking antibiotics? Take antibiotics exactly as told. ??? Take the correct amount of medicine at the same time each day. ??? Ask your health care provider: ? How long to wait between doses. ? If you should take your antibiotic with food or water. ? If you should avoid certain foods, drinks, or medicines while taking your antibiotics. ? If you need to watch for any side effects. ??? Use only the antibiotics prescribed to you by your health care provider. Do not use antibioticsprescribed for someone else. ??? Drink a large glass of water when taking your antibiotics unless told otherwise. Drink enough fluid to keep your urine pale yellow. ??? Ask your pharmacist for a dosage syringe, cup, or spoon that correctly measures your antibiotics. ??? Ask your pharmacist or health care provider how to safely get rid of leftover medicine. Follow these instructions at home: ??? Take your antibiotics as told by your health care provider. Do not stop taking your antibioticseven if you start to feel better. ??? Return to your normal activities as told by your health care provider. Ask your health care provider what activities are safe for you. Contact a health care provider if: ??? Your symptoms get worse. ??? You have new joint pain or muscle aches that begin after starting your antibiotic. ??? You have side effects from your antibiotic, such as: ? Stomach pain. ? Diarrhea. ? Nausea. ? White patches in your mouth or throat. Get help right away if: ??? You have sig (more content not included)...[facility] 08-31-2024 Hospital Discharge instructions Patient Education 08/31/2024 12:13:56 Infection Prevention in the Home Infection Prevention in the Home If you have an infection, may have been exposed to an infection, or are taking care of someone who has an infection, it is important to know how to keep the infection from spreading. Follow your health care provider's instructions and use these guidelines to help stop the spread of infection. How infections are spread In order for an infection to spread, the following must be present: A germ. This may be a virus, bacteria, fungus, or parasite. A place for the germ to live. This may be: ?On or in a person, animal, plant, or food. ?In soil or water. ?On surfaces, such as a door handle. A person or animal who can develop a disease if the germ enters the body (host). The host does not have resistance to the germ. A way for the germ to enter the host. This may occur by: ?Direct contact with an infected person or animal. This can happen through shaking hands or hugging. Some germs can also travel through the air and spread to others. This can happen when an infected person coughs or sneezes on or near other people. ?Indirect contact. This occurs when the germ enters the host through contact with an infected object. Examples include: ?Eating or drinking food or water that is contaminated with the germ. ?Touching a contaminated surface with your hands, and then touching your face, eyes, nose, or mouth. Supplies needed: Soap. Alcohol-based hand patient access registrar. Standard cleaning products. Disinfectants, such as bleach. Reusable cleaning cloths, sponges, or paper towels. Disposable or reusable utility gloves. How to prevent infection from spreading There are several things that you can do to help prevent infection from spreading. Take these general actions Everyone should take the following actions to prevent the spread of infection: Wash your hands often with soap and water for at least 20 seconds. If soap and water are not available, use alcohol-based hand patient access registrar. Avoid touching your face, mouth, nose, or eyes. Cough or sneeze into a tissue, sleeve, or elbow instead of into your hand or into the air. ?If you cough or sneeze into a tissue, throw it away immediately and wash your hands. Keep your bathroom clean Provide soap. Change towels and washcloths frequently. Change toothbrushes often and store them separately in a clean, dry place. Clean and disinfect all surfaces, including the toilet, floor, tub, shower, and sink. Do not share personal items, such as razors, toothbrushes, deodorant, stock, brushes, towels, and washcloths. Maintain hygiene in the kitchen Wash your hands before and after preparing food and before you eat. Clean the inside of your refrigerator each week. Keep your refrigerator set at 40 F (4 C) or less, and set your freezer at 0 F ( 18 C) or less. Keep work surfaces clean. Disinfect them regularly. Wash your dishes in hot, soapy water. Air-dry your dishes or use a stogy roller. Do not share dishes or eating utensils. Handle food safely Store food carefully. Refrigerate leftovers promptly in covered containers. Throw out stale or spoiled food. Thaw foods in the refrigerator or microwave, not at room temperature. Serve foods at the proper temperature. Do not eat raw meat. Make sure it is cooked to the appropriate temperature. Cook eggs until they are firm. Wash fruits and vegetables under running water. Use separate cutting boards, plates, and utensils for raw foods and cooked foods. Use a clean spoon each time you sample food while cooking. Do laundry the right way Wear gloves if laundry is visibly soiled. Do not shake soiled laundry. Doing that may send germs into the air. Wash laundry in hot water. If you cannot wash the laundry right away, place it in a plastic bag and wash it as soon as possible. Be careful around animals and pets Wash your hands before and after touching animals. If you have a pet, ensure that your pet stays clean. Do not let people with weak immune systems touch bird droppings, fish tank water, or a litter box. ?If you have a pet cage or litter box, be sure to clean it every day. If you are sick, stay away from animals and have someone else care for them if possible. How to clean and disinfect objects and surfaces Precautions Some disinfectants work for certain germs and not others. Read the hide house supervisor's instructions or read online resources to determine if the product you are using will work for the germ you are tryingto remove. If you choose to use bleach, use it safely. Never mix it with other cleaning products, especially those that contain ammonia. This mixture can create a dangerous gas that may be deadly. Keep proper movement of fresh air in your home (ventilation). Pour used mop water down the utility sink or toilet. Do not pour this water down the kitchen sink. Objects and surfaces If surfaces are visibly soiled, clean them first with soap and water before disinfecting. Disinfect surfaces that are frequently touched every day. This may include: ?Counters. ?Tables. ?Doorknobs. ?Sinks and faucets. ?Electronics, such as: ?Phones. ?Remote controls. ?Keyboards. ?Computers and tablets. Cleaning supplies Some cleaning supplies can breed germs. Take good care of them to prevent germs from spreading. To do this: Soak toilet brushes, mops, and sponges in bleach and water for 5 minutes after each use, or according to hide house supervisor's instructions. Wash reusable cleaning cloths and sanitize sponges after each use. Throw away disposable gloves after one use. Replace reusable utility gloves if they are cracked or torn or if they start to peel. Additional actions if you are sick If you live with other people: Avoid close contact with those around you. Stay at least 3 ft (1 m) away from others, if possible. Use a separate bathroom, if possible. If possible, sleep in a separate bedroom or in a separate bed to prevent infecting other household members. ?Change bedroom linens each week or whenever they are soiled. Have everyone in the household wash hands often with soap and water for at least 20 seconds. If soap and water are not available, use alcohol-based hand patient access registrar. In general: Stay home except to get medical care. Call ahead before visiting your health care provider. Ask others to get groceries and household supplies and to refill prescriptions for you. Avoid public areas. Try not to take public transportation. If you can, wear a mask if you need to go out of the house, or if you are in close contact with someone who is not sick. Avoid visitors until you have completely recovered, or until you have no signs and symptoms of infection. Avoid preparing food or providing care for others. If you must prepare food or provide care for others, wear a mask and wash your hands before and after doing these things. Where to find more information Centers for Disease Control and Prevention: cdc.gov Summary It is important to know how to keep infection from spreading. Make sure everyone in your household washes their hands often with soap and water. Disinfect surfaces that are frequently touched every day. If you are sick, stay home except to get medical care. This information is not intended to replace advice given to you by your health care provider. Make sure you discuss any questions you have with your health care provider. Document Revised: 09/22/2022 Document Reviewed: 09/22/2022 [employer] Patient Education 2023 [employer]. Follow Up Care 08/09/2024 11:50:25 With:Diego RICKS, OUSMANE Bell, URO Address: When: Unknown Comments:Schedule BL stent exchange in 3 mos [facility] 01-15-2025 NotePatient Education Infectious Disease Infection Prevention in the Home If you have an infection, may have been exposed to an infection, or are taking care of someone who has an infection, it is important to know how to keep the infection from spreading. Follow your health care provider's instructions and use these guidelines to help stop the spread of infection. How infections are spread In order for an infection to spread, the following must be present: ??? A germ. This may be a virus, bacteria, fungus, or parasite. ??? A place for the germ to live. This may be: ? On or in a person, animal, plant, or food. ? In soil or water. ? On surfaces, such as a door handle. ??? A person or animal who can develop a disease if the germ enters the body (host). The host does not have resistance to the germ. ??? A way for the germ to enter the host. This may occur by: ? Direct contact with an infected person or animal. This can happen through shaking hands or hugging. Some germs can also travel through the air and spread to others. This can happen when an infectedperson coughs or sneezes on or near other people. ? Indirect contact. This occurs when the germ enters the host through contact with an infected object. Examples include: ? Eating or drinking food or water that is contaminated with the germ. ? Touching a contaminated surface with your hands, and then touching your face, eyes, nose, or mouth. Supplies needed: ??? Soap. ??? Alcohol-based hand patient access registrar. ??? Standard cleaning products. ??? Disinfectants, such as bleach. ??? Reusable cleaning cloths, sponges, or paper towels. ??? Disposable or reusable utility gloves. How to prevent infection from spreading There are several things that you can do to help prevent infection from spreading. Take these general actions Everyone should take the following actions to prevent the spread of infection: ??? Wash your hands often with soap and water for at least 20 seconds. If soap and water are not available, use alcohol-based hand patient access registrar. ??? Avoid touching your face, mouth, nose, or eyes. ??? Cough or sneeze into a tissue, sleeve, or elbow instead of into your hand or into the air. ? If you cough or sneeze into a tissue, throw it away immediately and wash your hands. Keep your bathroom clean ??? Provide soap. ??? Change towels and washcloths frequently. ??? Change toothbrushes often and store them separately in a clean, dry place. ??? Clean and disinfect all surfaces, including the toilet, floor, tub, shower, and sink. ??? Do not share personal items, such as razors, toothbrushes, deodorant, stock, brushes, towels, and washcloths. Maintain hygiene in the kitchen ??? Wash your hands before and after preparing food and before you eat. ??? Clean the inside of your refrigerator each week. ??? Keep your refrigerator set at 40?F (4?C) or less, and set your freezer at 0?F (?18?C) or less. ??? Keep work surfaces clean. Disinfect them regularly. ??? Wash your dishes in hot, soapy water. Air-dry your dishes or use a stogy roller. ??? Do not share dishes or eating utensils. Handle food safely ??? Store food carefully. ??? Refrigerate leftovers promptly in covered containers. ??? Throw out stale or spoiled food. ??? Thaw foods in the refrigerator or microwave, not at room temperature. ??? Serve foods at the proper temperature. Do not eat raw meat. Make sure it is cooked to the appropriate temperature. Cook eggs until they are firm. ??? Wash fruits and vegetables under running water. ??? Use separate cutting boards, plates, and utensils for raw foods and cooked foods. ??? Use a clean spoon each time you sample food while cooking. Do laundry the right way ??? Wear gloves if laundry is visibly soiled. ??? Do not shake soiled laundry. Doing that may send germs into the air. ??? Wash laundry in hot water. ??? If you cannot wash the laundry right away, place it in a plastic bag and wash it as soon as possible. Be careful around animals and pets ??? Wash your hands before and after touching animals. ??? If you have a pet, ensure that your pet stays clean. Do not let people with weak immune systemstouch bird droppings, fish tank water, or a litter box. ? If you have a pet cage or litter box, be sure to clean it every day. ??? If you are sick, stay away from animals and have someone else care for them if possible. How to clean and disinfect objects and surfaces Precautions ??? Some disinfectants work for certain germs and not others. Read the hide house supervisor's instructions or read online resources to determine if the product you are using will work for the germ you are trying to remove. ??? If you choose to use bleach, use it safely. Never mix it with other cleaning products, especially those that contain ammonia. This mixture can create a dangerous gas that may be deadly. ??? Keep proper (more content not included)...[facility] 08-18-2024 NotePatient Education Caregiving Antibiotic Medicine, Adult Antibiotic medicines are used to treat infections caused by bacteria. These medicines do not work for illnesses caused by viruses. Antibiotics work by killing the bacteria that are making you sick, but they can also have serious side effects. Antibiotics must be used safely and only when needed. When do I need to take antibiotics? You may need antibiotics for: ??? A urinary tract infection (UTI). ??? Strep throat. ??? Bacterial sinus infection. ??? Meningitis. ??? Serious lung infections. Your health care provider may start you on antibiotics while you are waiting for test results. Tests may include a culture of the throat, urine, blood, or mucus. Your health care provider may change or stop your antibiotic depending on your test results. When are antibiotics not needed? You do not need antibiotics for most common illnesses. These illnesses may be caused by a virus, not by bacteria. You do not need antibiotics for: ??? The common cold. ??? The flu (influenza). ??? Sore throat. ??? Discolored mucus. ??? Bronchitis. Antibiotics are not always needed for all infections caused by bacteria. Many of these infections clear up on their own. Do not take antibiotics when they are not needed. How long should I take my antibiotic? You must take the entire amount prescribed to you. Take your antibiotics as told by your health care provider. Do not stop taking your antibiotics even if you start to feel better. If you stop takingthem too soon: ??? You may feel sick again. ??? Your infection may get harder to treat. Each course of antibiotics needs a different length of time to work. The length of time may vary from a few days to a few weeks. What if I miss a dose? Try not to miss any doses of medicine. If you miss a dose, call your health care provider or pharmacist for help. Sometimes, it is okay to take the missed dose as soon as possible. Do not take doubleor extra doses. What are the risks of taking antibiotics? Antibiotics can cause: ??? Allergic reactions. ??? Nausea. ??? Yeast infections. ??? Liver problems. Antibiotics can also cause an infection called Clostridioides difficile (C. difficile or C. diff), which causes severe diarrhea. This infection happens when the antibiotics kill the healthy bacteria in your intestines. This allows C. diff to grow. C. diff needs to be treated right away. Let your health care provider know if: ??? You have diarrhea while taking an antibiotic. ??? You have diarrhea after you stop taking an antibiotic. C. diff infection can start weeks after stopping the antibiotic. Taking an antibiotic also puts you at risk for getting sick in the future with bacteria that do notrespond to medicine (antibiotic-resistant infection). Antibiotics can cause bacteria to change so that if the antibiotic is taken again, the medicine cannot kill the bacteria. These infections can bemore serious because they are hard, or sometimes impossible, to treat. Do antibiotics affect control? control pills may not work while you are taking antibiotics. If you are taking control pills: ??? Keep taking them as usual. ??? Use a second form of control, such as a condom, to avoid unwanted . Do this for as long as told by your health care provider. What else should I know about taking antibiotics? Take antibiotics exactly as told. ??? Take the correct amount of medicine at the same time each day. ??? Ask your health care provider: ? How long to wait between doses. ? If you should take your antibiotic with food or water. ? If you should avoid certain foods, drinks, or medicines while taking your antibiotics. ? If you need to watch for any side effects. ??? Use only the antibiotics prescribed to you by your health care provider. Do not use antibioticsprescribed for someone else. ??? Drink a large glass of water when taking your antibiotics unless told otherwise. Drink enough fluid to keep your urine pale yellow. ??? Ask your pharmacist for a dosage syringe, cup, or spoon that correctly measures your antibiotics. ??? Ask your pharmacist or health care provider how to safely get rid of leftover medicine. Follow these instructions at home: ??? Take your antibiotics as told by your health care provider. Do not stop taking your antibioticseven if you start to feel better. ??? Return to your normal activities as told by your health care provider. Ask your health care provider what activities are safe for you. Contact a health care provider if: ??? Your symptoms get worse. ??? You have new joint pain or muscle aches that begin after starting your antibiotic. ??? You have side effects from your antibiotic, such as: ? Stomach pain. ? Diarrhea. ? Nausea. ? White patches in your mouth or throat. Get help right away if: ??? 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 August 03, 2024 3:32pm Hyperkalemia inactive July 3:32pm Stage 3b chronic kidney dise ase (CKD) deleted August 03 2 024 3:32pm B12 deficiency chronic September 172024 12:16pm Chemotherapy-induced periphe ral neuropathy chronic September 27 12:16pm Encounter for chemotherapy management chronic September 27 12:16pm Encounter for coordination o f complex care chronic September 27 12:16pm History of anemia due to vitamin B12 deficiency chronic September 27, 2024 12:16pm History of hemodialysis chronic F ebruary 2024 12:16pm Iron deficiency anemia chronic Fe bruary 2024 12:16pm 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 September 27, 2024 12:16pm Rash and nonspecific skin eruption chronic September 27 12:16pm Steroid-induced diabetes mellitus chronic September 27 12:16pm Superficial thrombophlebitis of left upper extremity chronic September 272024 12:16pm Urinary incontinence chronic Febr ua2024 12:16pm Acute renal failure on dialysis reso lved September 27, 2024 12:16pm Anemia of renal disease inactive F ebruary 2024 12:16pm [facility] Work Phone: 1(757) 807-561412-18-2024 Evaluation note* Diagnosis Onset Date Resolution Status Admit Date Anemia of chronic renal failure, stage 4 (severe) acute Decemb er 2023 3:32pm 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 August 03, 2 024 3:32pm Hypophosphatemia acute August 03, 2024 3:32pm History of anemia due to vitamin B12 deficiency chronic August 03, 2024 3:32pm 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 August 03, 2024 3:32pm Hyperkalemia inactive July 3:32pm Stage 3b chronic kidney dise ase (CKD) deleted August 03, 2 024 3:32pm B12 deficiency chronic September 172024 12:16pm Chemotherapy-induced periphe ral neuropathy chronic September 27 12:16pm Encounter for chemotherapy management chronic September 27 12:16pm Encounter for coordination o f complex care chronic September 27 12:16pm History of anemia due to vitamin B12 deficiency chronic September 27, 2024 12:16pm History of hemodialysis chronic [facility] 2024 12:16pm Iron deficiency anemia chronic Fe bruary 2024 12:16pm 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 September 27, 2024 12:16pm Rash and nonspecific skin eruption chronic September 27 12:16pm Steroid-induced diabetes mellitus chronic September 27 12:16pm Superficial thrombophlebitis of left upper extremity chronic September 272024 12:16pm Urinary incontinence chronic ua2024 12:16pm Acute renal failure on dialysis reso lved September 27, 2024 12:16pm [facility] of renal disease [facility] 12:16pm Anemia of chronic renal failure, stage 4 (severe) acute Februa ry 2024 3:21pm 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 October 04 2 025 3:21pm Hypophosphatemia acute October 04, 2024 3:21pm History of anemia due to vitamin B12 deficiency chronic October 04, 2024 3:21pm 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 October 04, 2024 3:21pm Hyperkalemia inactive September 3:21pm Stage 3b chronic kidney dise ase (CKD) deleted October 04 025 3:21pm [facility] Work Phone: 1(239) 720-976912-18-2024 Evaluation note* Diagnosis Onset Date Resolution Status Admit Date Anemia of chronic renal failure, stage 4 (severe) acute Decemb er 2023 3:32pm 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 August 03 024 3:32pm Hypophosphatemia acute August 03, 2024 3:32pm History of anemia due to vitamin B12 deficiency chronic August 03, 2024 3:32pm 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 August 03, 2024 3:32pm Hyperkalemia inactive July 3:32pm Stage 3b chronic kidney dise ase (CKD) deleted August 03 024 3:32pm Anemia of chronic renal failure, stage 4 (severe) acute Februa 2024 3:21pm 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 October 04 025 3:21pm Hypophosphatemia acute October 04, 2024 3:21pm History of anemia due to vitamin B12 deficiency chronic October 04, 2024 3:21pm 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 October 04, 2024 3:21pm Hyperkalemia inactive September 3:21pm Stage 3b chronic kidney dise ase (CKD) deleted October 04 025 3:21pm Anemia of chronic renal failure, stage 4 (severe) acute Februa 2024 12:57pm B12 deficiency chronic September 182024 12:57pm Encounter for coordination o f complex care chronic October 06 12:57pm History of hemodialysis chronic F ebruary 2024 12:57pm 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 October 06, 2024 12:57pm Steroid-induced diabetes mellitus chronic October 06 12:57pm B12 deficiency chronic September 182024 1:24pm Chemotherapy-induced periphe ral neuropathy chronic October 06 1:24pm Encounter for chemotherapy management chronic October 06 1:24pm Encounter for coordination o f complex care chronic October 06 1:24pm History of anemia due to vitamin B12 deficiency chronic October 06, 2024 1:24pm History of hemodialysis chronic F 2024 1:24pm Iron deficiency anemia chronic Fe bru2024 1:24pm 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 October 06, 2024 1:24pm Rash and nonspecific skin eruption chronic October 06 1:24pm Steroid-induced diabetes mellitus chronic October 06 1:24pm Superficial thrombophlebitis of left upper extremity chronic October 062024 1:24pm Urinary incontinence chronic Febr uary 2024 1:24pm Acute renal failure on dialysis reso lved October 06, 2024 1:24pm Anemia of renal disease inactive F 2024 1:24pm [facility] Work Phone: 1(250) 177-661312-14-2024 NoteHospital Medicine Discharge Summary Final Discharge Diagnosis: Acute kidney injury superimposed on CKD (CMS/HCC) Complicated UTI Hydronephrosis status post stent exchange on 1211 On mornin chronic urinary retention status post suprapubic catheter History of multiple myeloma anemia of chronic disease Admission Diagnosis: Acute kidney injury superimposed on CKD (CMS/HCC) [N17.9, N18.9] Hospital course: Patsy Cunningham is an 79 y.o. male with a history of hydronephrosis requiring ureteral stents and a chronic suprapubic catheter who came from [facility] as a transfer requiring higher level of care related to need for nuclear scan for assessment of obstruction as well as potential initiation of hemodialysis. Patient initially went to outside hospital with complaints of UTI and RINA and was admitted on 07/20/24. At outside hospital, patient was is suspicion that patient has another obstruction for which he requires nuclear scans and potential stent placement for which initiation was transferred to [facility]. Patient's potassium has remained stable with worsening creatinine from 4 initially to 6 today despite continuous IV fluids. Patient's vitals have remained stable. Hemoglobin has been decreasing 10 on admission 07/20 and 7.7 today. Nephrology and urology were consulted. Patient underwent a renal ultrasound and a CT scan. Urology did recommend bilateral stent exchange. Patient was transfused one unit on 07/27. On 07/28 he underwent a bilateral stent exchange. Kidney function continue to improve slowly with creatinine down to 2.70 on the day of discharge. Patient remained afebrile. Patient was treated with IV ceftriaxone for 10 days and discharged on Augmentin to complete total of 14 days. Patient is recommended to follow-up outpatient with nephrology and urology and repeat labs in 2 to 3 days. #Acute renal failure on CKD 3b secondary to urinary obstruction - nephrology and urology consulted - Baseline Cr is 2 - 2.5 - Cr today is 2.7 - s/p bilateral stent exchange 07/28 Complicated UTI with sepsis - spoke with [facility] blood cultures NGTD. Urine culture was mixed cecil. Did speak with them again also on 07/27 and faxed report and again mixed cecil - on admission urology recommended a total of 14 days of abx that also included his abx at [facility]. - patient has been on rocephin here to complete course, antibiotics switched to oral on discharge to complete total 14 days Hyperkalemia - resolved Chronic urinary retention s/p suprapubic catheter - CT shows, There are bilateral double-J ureter stents. There is gas within the right intrarenal collecting system which could be iatrogenic or could be due to a gas-forming organism. Moderately dilated intrarenal collecting systems which could be due to prior obstruction, reflux, or acute obstruction with nonfunctioning stents. Findings best assessed examination with other clinical data and comparison any outside studies if any exist - s/p stent exchange 07/28 - Patient will need follow up with Urologist, Dr Lane, for scheduled stent/SPT exchanges Chronic bilateral hydronephrosis managed with chronic indwelling ureteral stents - CT shows, There are bilateral double-J ureter stents. There is gas within the right intrarenal collecting system which could be iatrogenic or could be due to a gas-forming organism. Moderately dilated intrarenal collecting systems which could be due to prior obstruction, reflux, or acute obstruction with nonfunctioning stents. Findings best assessed examination with other clinical data and comparison any outside studies if any exist - s/p stent exchange 07/28 - per urology Franklyn Lau MD at 07/29/2024 3:55 PM patient has some improvement on his kidney function. I have discussed with them again about management of his condition. He will benefit from augementation cystoplasty vs bilateral PCN.I have explained to them the advantages and disadvantages of each one of the procedure. With his comorbidities he would be better off with bilateral nephrostomy tubes. No further procedure planned by urology before discharge History of multiple myeloma - a status post bone marrow transplantation/chemotherapy History of prostate CA - Eucha 6 prostate cancer under active surveillance DMII insulin dependent - Glu 134-196 - on ISS - on lantus outpt, will start at 10 units Anemia - Hgb 8.6 - s/p 1 unit 07/27 - monitor daily CBC Dear Dr. Don MD, Patsy is advised to follow up with you within 1-2 weeks. Follow-up with: Nephrology and Urology, repeat labs in 2-3 days Scheduled appointments: No future appointments. Your medication list START taking these medications Instructions Last Dose Given Next Dose Due amoxicillin-pot clavulanate 1,000-62.5 mg 12 hr tablet Commonly known as: Augmentin XR Take 1 tablet by mouth two times daily for 3 days. CHANGE how you take these medicati (more content not included)...[facility]12-13-2024 NoteHospital Medicine Daily Progress Note - 07/29/2024 1:31 PM; Room: [address] [place] [address] Admission: 07/24/2024 4:16 PM; Length of stay: 5 days THE HOSPITALIST TEAM PREFERS TO USE [employer] CHAT FOR NON-URGENT COMMUNICATION 7AM-7PM. IF I DO NOT RESPOND WITHIN 20 MINUTES OR URGENT MATTERS, PLEASE CALL THROUGH THE [employer]ER. FROM 7PM-7AM, PLEASE PAGE [phone](COVR). Code Status: Full Code Barriers to Discharge: OK by neph and urology Expected Discharge Date: 07/30 Discharge Destination: home Overview Patsy Cunningham is an 79 y.o. male with a history of hydronephrosis requiring ureteral stents and a chronic suprapubic catheter who came from [facility] as a transfer requiring higher level of care related to need for nuclear scan for assessment of obstruction as well as potential initiation of hemodialysis. Patient initially went to outside hospital with complaints of UTI and RINA and was admitted on 07/20/24. At outside hospital, patient was is suspicion that patient has another obstruction for which he requires nuclear scans and potential stent placement for which initiation was transferred to [facility]. Patient's potassium has remained stable with worsening creatinine from 4 initially to 6 today despite continuous IV fluids. Patient's vitals have remained stable. Hemoglobin has been decreasing 10 on admission 07/20 and 7.7 today. Patient was transfused one unit on 07/27. On 07/28 he underwent a bilateral stent exchange. Subjective In bed Reports he still has not had a bowel movement Reports he has some mild pain from his stent exchange but overall doing well Physical Exam Visit Vitals BP 157/67 (BP Location: Right arm, Patient Position: Lying) Pulse 73 Temp 37.1 ???C (98.7 ???F) (Oral) Resp 22 Intake/Output Summary (Last 24 hours) at 07/29/2024 1331 Last data filed at 07/29/2024 1325 Gross per 24 hour Intake 1518.63 ml Output 3000 ml Net -1481.37 ml Physical Exam Constitutional: Appearance: Normal appearance. HENT: Head: Normocephalic. Mouth/Throat: Mouth: Mucous membranes are moist. Eyes: Extraocular Movements: Extraocular movements intact. Pupils: Pupils are equal, round, and reactive to light. Cardiovascular: Rate and Rhythm: Normal rate and regular rhythm. Pulmonary: Effort: Pulmonary effort is normal. Abdominal: General: Abdomen is flat. Palpations: Abdomen is soft. Genitourinary: Comments: Bond - clear, yellow urine Musculoskeletal: General: Normal range of motion. Skin: General: Skin is warm. Neurological: General: No focal deficit present. Mental Status: He is alert. Psychiatric: Mood and Affect: Mood normal. Estimated body mass index is 31.94 kg/m??? as calculated from the following: Height as of this encounter: 1.778 m (5' 10 ). Weight as of this encounter: 101 kg (222 lb 9.6 oz). Active Inpatient Problems Principal Problem: Acute kidney injury superimposed on CKD (CMS/HCC) Active Problems: Hydronephrosis Pyelonephritis Macrocytic anemia Assessment and Plan Acute renal failure on CKD 3b secondary to urinary obstruction - nephrology and urology consulted - Baseline Cr is 2 - 2.5 - Cr today is 3.07 - monitor daily BMP - s/p bilateral stent exchange 07/28 Complicated UTI with sepsis - spoke with [facility] blood cultures NGTD. Urine culture was mixed cecil. Did speak with them again also on 07/27 and faxed report and again mixed cecil - on admission urology recommended a total of 14 days of abx that also included his abx at [facility]. - patient has been on rocephin here to complete course, can likely be adjusted to oral at [facility] if antibiotics has not been completed by discharge Hyperkalemia - resolved - K 4.2 Chronic urinary retention s/p suprapubic catheter - CT shows, There are bilateral double-J ureter stents. There is gas within the right intrarenal collecting system which could be iatrogenic or could be due to a gas-forming organism. Moderately dilated intrarenal collecting systems which could be due to prior obstruction, reflux, or acute obstruction with nonfunctioning stents. Findings best assessed examination with other clinical data and comparison any outside studies if any exist - s/p stent exchange 07/28 - Patient will need follow up with Urologist, Dr Lane, for scheduled stent/SPT exchanges Chronic bilateral hydronephrosis managed with chronic indwelling ureteral stents - CT shows, There are bilateral double-J ureter stents. There is gas within the right intrarenal collecting system which could be iatrogenic or could be due to a gas-forming organism. Moderately dilated intrarenal collecting systems which could be due to prior obstruction, reflux, or acute obstruction with nonfunctioning stents. Findings best assessed examination with other clinical data and comparison any outside studies if any exist - s/p stent exchange 07/28 - per urology Franklyn Lau MD at 07/29/2024 3:55 PM p (more content not included)...[facility]12-13-2024 NoteNephrology Progress Note Patient : Patsy Cunningham; 79 y.o. Location: Attending: Cris Devries DO Admit Date: 07/24/2024 Hospital Day: 5 Reason for Consult: RINA on CKD3b, appreciate recommendations regarding initiation of hemodialysis. Subjective: History of present illness: Patsy Cunningham is a 79 y.o. male with a history of hydronephrosis requiring ureteral stents and a chronic suprapubic catheter who came from [facility] as a transfer requiring higher level of care related to need for nuclear scan for assessment of obstruction as well as potential initiation of hemodialysis. Patient initially went to outside hospital with complaints of UTI and RINA and was admitted on 07/20/24. At outside hospital, patient was is suspicion that patient has another obstruction for which he requires nuclear scans and potential stent placement for which initiation was transferred to [facility]. Patient's potassium has remained stable with worsening creatinine from 4 initially to 6 today despite continuous IV fluids. Patient's vitals have remained stable. Hemoglobin has been decreasing 10 on admission 07/20 and 7.7 today. Interval history: Patient was seen and examined at bedside this morning. Cystoscopy and stent exchange was preformed yesterday without complications. Renal function continues to improve and patient has good urine production with nearly 3 L in last 24 hr. Objective: Input/Output: Intake/Output Summary (Last 24 hours) at 07/29/2024 1219 Last data filed at 07/29/2024 1038 Gross per 24 hour Intake 1518.63 ml Output 2750 ml Net -1231.37 ml I/O last 3 completed shifts: In: 2206.8 (21.9 mL/kg) [I.V.:1745.6 (17.3 mL/kg); Blood:311.3; IV Piggyback:150] Out: 4175 (41.3 mL/kg) [Urine:4175 (1.1 mL/kg/hr)] Weight: 101 kg Vital signs: Temperature: Temp: 37.1 ???C (98.7 ???F) TMax: Temp (24hrs), Av.8 ???C (98.3 ???F), Min:36.4 ???C (97.5 ???F), Max:37.3 ???C (99.1 ???F) Respirations: Resp: 22 Pulse: Heart Rate: 73 BP: BP: 157/67 BP Range: Systolic (24hrs), Av , Min:136 , Max:195 Diastolic (24hrs), Av, Min:63, Max:98 Wt Readings from Last 3 Encounters: 07/26/24 101 kg (222 lb 9.6 oz) Physical Exam Constitutional: Appearance: Normal appearance. HENT: Head: Normocephalic. Eyes: Extraocular Movements: Extraocular movements intact. Cardiovascular: Rate and Rhythm: Normal rate and regular rhythm. Heart sounds: Normal heart sounds. Pulmonary: Effort: Pulmonary effort is normal. Breath sounds: Normal breath sounds. Abdominal: General: Abdomen is flat. Palpations: Abdomen is soft. Tenderness: There is no abdominal tenderness. Musculoskeletal: Right lower leg: No edema. Left lower leg: No edema. Skin: General: Skin is warm and dry. Findings: No rash. Neurological: General: No focal deficit present. Mental Status: He is alert. Psychiatric: Mood and Affect: Mood normal. Behavior: Behavior normal. Current Medications: Scheduled Meds: atorvastatin, 20 mg, oral, q PM cefTRIAXone, 1 g, intravenous, q24h cholecalciferol, 2,000 Units, oral, Daily cyanocobalamin, 1,000 mcg, oral, Daily famotidine, 20 mg, oral, Nightly heparin (porcine), 5,000 Units, subcutaneous, q12h EMMA insulin glargine, 10 Units, subcutaneous, Nightly insulin lispro, 0-10 Units, subcutaneous, TID with meals And insulin lispro, 0-8 Units, subcutaneous, Nightly multivitamin with iron-minerals, 15 mL, oral, Daily oxyBUTYnin XL, 10 mg, oral, BID Oxygen Therapy, , inhalation, Continuous Continuous Infusions: PRN Meds: PRN medications: acetaminophen, glucose OR dextrose 50 % in water (D50W), diphenhydrAMINE-zinc acetate, melatonin, ondansetron ODT OR ondansetron, sennosides-docusate sodium Outpatient Medications: Medication Documentation Review Audit Reviewed by Monika Hendrickson MD (Anesthesiologist) on 07/28/24 at 1750 Medication Order Taking? Sig Documenting Provider Last Dose Status acetaminophen (Tylenol) 500 mg tablet [id number] Take 650 mg by mouth every 6 (six) hours if needed for mild pain (1-3 pain score). Historical Provider, Active aspirin 81 mg EC tablet [id number] Take 81 mg by mouth in the morning. Historical Provider, Active atorvastatin (Lipitor) 20 mg tablet [id number] Take 20 mg by mouth in the evening. Historical Provider, Active cholecalciferol (Vitamin D3) 50 MCG (1999) tablet [id number] Take 2,000 Units by mouth. Historical Provider, Active cyanocobalamin (Vitamin B-12) 1,000 mcg tablet [id number] Take 1,000 mcg by mouth in the morning. Historical Provider, Active darbepoetin raymond (Aranesp, in polysorbate,) syringe [id number] Inject 10 mcg under the skin if needed (every other week as needed for hgb <10). Historical Provider, Active docusate sodium (Colace) 50 mg capsule [id number] Take 50 mg by mouth in the morning. Historical Provider, Active famotidine (Pepcid) 20 mg (more content not included)...[facility]12-13-2024 NoteOccupational Therapy Name: Patys Cunningham Date of : 1945 Today's Date: 07/29/24 Pt is unable to be seen for therapy at this time secondary to typewriter aligner provided maximum encouragement for OOBA and pt reports, I still haven't eaten an I am in pain. Coin Collector explains benefits of activity promotion to improve activity tolerance, decreased weakness and to prevent blood clots. Pt verbalizes understanding but continues to defer therapy. . Will check back and complete therapy session as appropriate. Check No Charge Time attempted: [id number] Note Attestation signed by Franklyn Lau MD at 07/29/2024 3:55 PM I personally saw and examined the patient on the same date of service as resident/fellow saw the patient. I discussed the findings and therapeutic plan which is reflected on the plan in the note. I agree with the documentation Patient has some improvement on his kidney function. I have discussed with them again about management of his condition. He will benefit from augementation cystoplasty vs bilateral PCN> I have explained to them the advantages and disadvantages of each one of the procedure. With his comorbidities he would be better off with bilateral nephrostomy tubes. Cesar Denise MD, Keith Barton MD, , Compa Barrios MD, Franklyn Lau MD, Ramesh Soto MD Urology - Progress Note Chief Complaint: Bilateral hydronephrosis Subjective: POD s/p b/l stent & SPT exchange Mild stent irritation this am NAOE AF/VSS Tolerating diet Denies f/c/n/v/flank pain Weight: (pt refused to step on scale and said he will prefer his weight to be gotten later in the day. The bed scale is not functioning properly.) Patient Vitals for the past 24 hrs: BP Temp Temp src Pulse Resp SpO2 07/29/24 0543 139/81 37.1 ???C (98.8 ???F) Temporal 77 19 -- 07/29/24 0000 138/63 36.5 ???C (97.7 ???F) Oral 79 18 -- 07/28/24 2303 152/85 -- Temporal 87 23 -- 07/28/242027 169/68 36.4 ???C (97.5 ???F) Oral 69 24 96 % 07/28/24 1950 169/69 36.6 ???C (97.9 ???F) Temporal 61 18 95 % 07/28/24 1935 (!) 195/68 -- -- 66 18 95 % 07/28/24 1905 (!) 182/98 -- -- 75 18 96 % 07/28/24 1849 161/66 36.6 ???C (97.9 ???F) Temporal 77 16 98 % 07/28/24 1620 (!) 182/79 37.2 ???C (99 ???F) Temporal 73 18 97 % 07/28/24 1555 158/85 37.3 ???C (99.1 ???F) Temporal 73 20 98 % 07/28/24 1315 136/74 36.9 ???C (98.4 ???F) Temporal 83 19 97 % 07/28/24 1200 -- -- -- 61 19 98 % 07/28/24 0910 162/69 37 ???C (98.6 ???F) Temporal 67 21 95 % Intake/Output Summary (Last 24 hours) at 07/29/2024 0704 Last data filed at 07/29/2024 0547 Gross per 24 hour Intake 1518.63 ml Output 2475 ml Net -956.37 ml Results from last 7 days Lab Units 07/29/24 0446 07/28/24 0442 07/27/24 0515 SODIUM mmol/L 143 140 142 POTASSIUM mmol/L 3.9 4.2 3.9 CHLORIDE mmol/L 111* 109* 106 CO2 mmol/L 26 26 29 BUN mg/dL 36* 46* 61* CREATININE mg/dL 3.07* 3.89* 4.98* CALCIUM mg/dL 8.3* 7.9* 7.8* Results from last 7 days Lab Units 07/29/24 0446 07/28/24 0629 07/27/24 0515 WBC AUTO 10*3/uL 11.50* 6.67 5.37 HEMOGLOBIN g/dL 8.6* 8.5* 6.9* HEMATOCRIT % 25.8* 25.8* 21.1* PLATELETS AUTO 10*3/uL 163 161 148* Lab Results Component Value Date UROBILINOGEN Normal 07/25/2024 Physical Exam: Constitutional: not in acute distress, appears stated age HEENT: no gross abnormality Respiratory: equal and bilateral chest rise, breathing room air Cardiovascular: Regular rhythm and rate, distal pulses palpable Abdominal: Soft, nontender, nondistended, non peritonitic Extremities: No swelling of extremities : SPT in place draining clear yellow urine Additional Lab/culture results: Ucx no growth Interval Imaging Findings: None Impression: 79-year-old male with multiple myeloma, has history of chronic bilateral hydronephrosis, managed with chronic ureteral stent exchanges, last had stents exchanged 2 months ago. He also has neurogenic bladder secondary to multiple myeloma and is managed with SPT. He presented with renal failure, repeat CT is showing what appears to be worsening hydronephrosis s/p bilateral stent and SPT exchange on 07/28. Plan: Ok for regular diet Monitor UOP and trend Cr daily, Cr 3.07 from 3.8 Patient will need follow up with Urologist, Dr Lane, for scheduled stent/SPT exchanges Rest of care per primary Guicho Alejandro MD Urology Resident, PGY-2Un[facility]12-12-[facility] Note Patient: Patsy Cunningham Procedure Summary Date: 07/28/24 Room / Location: [facility] OPERATING ROOM / [facility] Operating Room Anesthesia Start: 1757 Anesthesia Stop: 1848 Procedures: CYSTOURETEROSCOPY, WITH BILATERAL STENT EXCHANGE; SUPRAPUBIC CATHETER EXCHANGE (Bilateral) URETEROSCOPY (Bilateral) Diagnosis: Acute kidney injury superimposed on CKD (CMS/HCC) Pyelonephritis (Acute kidney injury superimposed on CKD (CMS/HCC) [N17.9, N18.9]) (Pyelonephritis [N12]) Surgeons: Franklyn Lau MD Responsible Provider: Monika Hendrickson MD Anesthesia Type: MAC ASA Status: 3 Anesthesia Type: MAC Vitals Value Taken Time BP 161/66 07/28/24 1849 Temp 36.6 ???C (97.9 ???F) 07/28/24 1849 Pulse 81 07/28/24 1855 Resp 15 07/28/24 1855 SpO2 97 % 07/28/24 1855 Vitals shown include unfiled device data. Anesthesia Post Evaluation Patient location during evaluation: PACU Patient participation: complete - patient participated Level of consciousness: awake Pain score: 0 Pain management: adequate Airway patency: patent Cardiovascular status: acceptable Respiratory status: acceptable and room air Hydration status: acceptable Patient is hemodynamically stable and is able to be discharged from PACU per anesthesia protocol. No notable events documented.[facility]12-12-2024 Note Patient: Patsy Cunningham Procedure Summary Date: 07/28/24 Room / Location: [facility] OPERATING ROOM / [facility] Operating Room Anesthesia Start: 1757 Anesthesia Stop: Procedures: CYSTOURETEROSCOPY, WITH BILATERAL STENT EXCHANGE; SUPRAPUBIC CATHETER EXCHANGE (Bilateral) URETEROSCOPY (Bilateral) Diagnosis: Acute kidney injury superimposed on CKD (CMS/HCC) Pyelonephritis (Acute kidney injury superimposed on CKD (CMS/HCC) [N17.9, N18.9]) (Pyelonephritis [N12]) Surgeons: Franklyn Lua MD Responsible Provider: Monika Hendrickson MD Anesthesia Type: MAC ASA Status: 3 Anesthesia Post Transport Note Transport to: PACU O2 Route: room air Patient Monitor: direct observation Transport: uneventful [facility] condition [facility] Patient: Patsy Cunningham Procedure Information Date/Time: 07/28/241834 Procedure: CYSTOURETEROSCOPY, WITH STENT EXCHANGE (Bilateral) Location: [facility] OPERATING ROOM 07 / [facility] Operating Room Surgeons: Franklyn Lau MD Relevant Problems /Renal (+) Acute kidney injury superimposed on CKD (CMS/HCC) (+) Hydronephrosis (+) Pyelonephritis Clinical information reviewed: Tobacco Allergies Meds Problems Med Hx Surg Hx Fam Hx Physical Exam Airway Mallampati: II TM distance: >3 FB Neck ROM: full Cardiovascular Rhythm: regular Rate: normal Dental Comments: Poor dental care Pulmonary - normal exam Abdominal Abdomen: soft Anesthesia Plan ASA 3 MAC (GA if need it) intravenous induction Anesthetic plan and risks discussed with patient. Use of blood products discussed with patient who. Plan discussed with attending and resident. Additional Equipment RequestsUnAs[facility]12-12-2024 Note Attestation signed by Marvin Covington MD at 07/28/2024 10:02 PM By using the attestations below, the signing clinician agrees that I have read and verify that the documentation has been personally reviewed by me and ensure that the documentation accurately reflects the encounter. GC: I personally saw this patient on the day of the encounter, performed the clark portion(s) of the service and participated in the management and confirm the resident's documentation. Please note there may be an additional personal documentation from me. Nephrology Progress Note Patient : Patsy Cunningham; 79 y.o. Location: [facility] Attending: Cris Devries DO Admit Date: 07/24/2024 Hospital Day: 4 Reason for Consult: RINA on CKD3b, appreciate recommendations regarding initiation of hemodialysis. Subjective: History of present illness: Patsy Cunningham is a 79 y.o. male with a history of hydronephrosis requiring ureteral stents and a chronic suprapubic catheter who came from [facility] as a transfer requiring higher level of care related to need for nuclear scan for assessment of obstruction as well as potential initiation of hemodialysis. Patient initially went to outside hospital with complaints of UTI and RINA and was admitted on 07/20/24. At outside hospital, patient was is suspicion that patient has another obstruction for which he requires nuclear scans and potential stent placement for which initiation was transferred to [facility]. Patient's potassium has remained stable with worsening creatinine from 4 initially to 6 today despite continuous IV fluids. Patient's vitals have remained stable. Hemoglobin has been decreasing 10 on admission 07/20 and 7.7 today. Interval history: Patient was seen and examined at bedside this morning, renal function is improving, plan for cystoscopy and stent exchange today by urology . Objective: Input/Output: Intake/Output Summary (Last 24 hours) at 07/28/2024 1340 Last data filed at 07/28/2024 0937 Gross per 24 hour Intake 688.17 ml Output 2075 ml Net -1386.83 ml I/O last 3 completed shifts: In: 806.5 (8 mL/kg) [I.V.:495.3 (4.9 mL/kg); Blood:311.3] Out: 3250 (32.2 mL/kg) [Urine:3250 (0.9 mL/kg/hr)] Weight: 101 kg Vital signs: Temperature: Temp: 36.9 ???C (98.4 ???F) TMax: Temp (24hrs), Av.8 ???C (98.2 ???F), Min:36.1 ???C (96.9 ???F), Max:37.1 ???C (98.7 ???F) Respirations: Resp: 19 Pulse: Heart Rate: 83 BP: BP: 136/74 BP Range: Systolic (24hrs), Av , Min:136 , Max:163 Diastolic (24hrs), Av, Min:63, Max:80 Wt Readings from Last 3 Encounters: 07/26/24 101 kg (222 lb 9.6 oz) Physical Exam Constitutional: Appearance: Normal appearance. HENT: Head: Normocephalic. Eyes: Extraocular Movements: Extraocular movements intact. Cardiovascular: Rate and Rhythm: Normal rate and regular rhythm. Heart sounds: Normal heart sounds. Pulmonary: Effort: Pulmonary effort is normal. Breath sounds: Normal breath sounds. Abdominal: General: Abdomen is flat. Bowel sounds are normal. Palpations: Abdomen is soft. Musculoskeletal: Right lower leg: No edema. Left lower leg: No edema. Skin: General: Skin is warm and dry. Coloration: Skin is not pale. Findings: No rash. Neurological: General: No focal deficit present. Mental Status: He is alert and oriented to person, place, and time. Psychiatric: Mood and Affect: Mood normal. Behavior: Behavior normal. Current Medications: Scheduled Meds: atorvastatin, 20 mg, oral, q PM cefTRIAXone, 1 g, intravenous, q24h cholecalciferol, 2,000 Units, oral, Daily cyanocobalamin, 1,000 mcg, oral, Daily famotidine, 20 mg, oral, Nightly heparin (porcine), 5,000 Units, subcutaneous, q12h EMMA insulin glargine, 10 Units, subcutaneous, Nightly insulin lispro, 0-10 Units, subcutaneous, TID with meals And insulin lispro, 0-8 Units, subcutaneous, Nightly multivitamin with iron-minerals, 15 mL, oral, Daily oxyBUTYnin XL, 10 mg, oral, BID Oxygen Therapy, , inhalation, Continuous Continuous Infusions: lactated Ringer's, 75 mL/hr, Last Rate: 75 mL/hr (07/28/24 1041) PRN Meds: PRN medications: acetaminophen, glucose OR dextrose 50 % in water (D50W), diphenhydrAMINE-zinc acetate, melatonin, ondansetron ODT OR ondansetron, sennosides-docusate sodium Outpatient Medications: Medication Documentation Review Audit Reviewed by Patrica Byrd RN (Registered Nurse) on 07/24/24 at 1919 Medication Order Taking? Sig Documenting Provider Last Dose Status acetaminophen (Tylenol) 500 mg tablet [id number] Take 650 mg by mouth every 6 (six) hours if needed for mild pain (1-3 pain score). Historical Provider, Active aspirin 81 mg EC tablet [id number] Take 81 mg by mouth in the morning. Historical Prov (more content not included)...[facility]12-12-2024 NoteHospital Medicine Daily Progress Note - 07/28/2024 1:35 PM; Room: [address] [place] [address] Admission: 07/24/2024 4:16 PM; Length of stay: 4 days THE HOSPITALIST TEAM PREFERS TO USE [employer] FOR NON-URGENT COMMUNICATION 7AM-7PM. IF I DO NOT RESPOND WITHIN 20 MINUTES OR URGENT MATTERS, PLEASE CALL THROUGH THE [employer]. FROM 7PM-7AM, PLEASE PAGE [phone](COVR). Code Status: Full Code Barriers to Discharge:stent exchange Expected Discharge Date: 1 - 2 days Discharge Destination: home Overview Patsy Cunningham is an 79 y.o. male with a history of hydronephrosis requiring ureteral stents and a chronic suprapubic catheter who came from [facility] as a transfer requiring higher level of care related to need for nuclear scan for assessment of obstruction as well as potential initiation of hemodialysis. Patient initially went to outside hospital with complaints of UTI and RINA and was admitted on 07/20/24. At outside hospital, patient was is suspicion that patient has another obstruction for which he requires nuclear scans and potential stent placement for which initiation was transferred to [facility]. Patient's potassium has remained stable with worsening creatinine from 4 initially to 6 today despite continuous IV fluids. Patient's vitals have remained stable. Hemoglobin has been decreasing 10 on admission 07/20 and 7.7 today. Patient will be transfused 1 unit PRBCs today. Subjective In bed No complaints Hoping he gets his stents today so that he can eat soon Overall reports he is feeling well Physical Exam Visit Vitals BP 136/74 (BP Location: Right arm, Patient Position: Sitting) Pulse 83 Temp 36.9 ???C (98.4 ???F) (Temporal) Resp 19 Intake/Output Summary (Last 24 hours) at 07/28/2024 1335 Last data filed at 07/28/2024 0937 Gross per 24 hour Intake 688.17 ml Output 2075 ml Net -1386.83 ml Physical Exam Constitutional: Appearance: Normal appearance. HENT: Head: Normocephalic. Mouth/Throat: Mouth: Mucous membranes are moist. Eyes: Extraocular Movements: Extraocular movements intact. Pupils: Pupils are equal, round, and reactive to light. Cardiovascular: Rate and Rhythm: Normal rate and regular rhythm. Pulmonary: Effort: Pulmonary effort is normal. Abdominal: General: Abdomen is flat. Palpations: Abdomen is soft. Musculoskeletal: General: Normal range of motion. Skin: General: Skin is warm. Neurological: General: No focal deficit present. Mental Status: He is alert. Psychiatric: Mood and Affect: Mood normal. Estimated body mass index is 31.94 kg/m??? as calculated from the following: Height as of this encounter: 1.778 m (5' 10 ). Weight as of this encounter: 101 kg (222 lb 9.6 oz). Active Inpatient Problems Principal Problem: Acute kidney injury superimposed on CKD ([facility]) Active Problems: Hydronephrosis Pyelonephritis Macrocytic anemia Assessment and Plan Acute renal failure on CKD 3b secondary to urinary obstruction - nephrology and urology consulted - Baseline Cr is 2 - 2.5 - Cr today is 3.89 - monitor daily BMP - urology does plan to exchange stents today Complicated UTI with sepsis - spoke with [facility] blood cultures NGTD. Urine culture was mixed cecil. Did speak with them again also on 07/27 - spoke with urology and recommended to continue abx. Will place on rocephin for 7 more days Hyperkalemia - resolved - K 4.2 Chronic urinary retention s/p suprapubic catheter - CT shows, There are bilateral double-J ureter stents. There is gas within the right intrarenal collecting system which could be iatrogenic or could be due to a gas-forming organism. Moderately dilated intrarenal collecting systems which could be due to prior obstruction, reflux, or acute obstruction with nonfunctioning stents. Findings best assessed examination with other clinical data and comparison any outside studies if any exist - plan for stent exchange today Chronic bilateral hydronephrosis managed with chronic indwelling ureteral stents - CT shows, There are bilateral double-J ureter stents. There is gas within the right intrarenal collecting system which could be iatrogenic or could be due to a gas-forming organism. Moderately dilated intrarenal collecting systems which could be due to prior obstruction, reflux, or acute obstruction with nonfunctioning stents. Findings best assessed examination with other clinical data and comparison any outside studies if any exist - plan for stent exchange today History of multiple myeloma - a status post bone marrow transplantation/chemotherapy History of prostate CA - Selene 6 prostate cancer under active surveillance DMII insulin dependent - Glu 119-170 - on ISS - on lantus outpt, will start at 10 units Anemia - Hgb 8.5 - s/p 1 unit 07/27 - monitor daily CBC VTE Prophylaxis: Heparin on hold Scheduled Meds atorvastatin, 20 mg, oral, q PM cefTRIAXone, 1 g, intravenous, (more content not included)...[facility]12-12-2024 NoteOccupational Therapy Name: Patsy Cunningham Date of : 1945 Today's Date: 07/28/24 Pt is unable to be seen for therapy at this time secondary to patient defers reporting, I haven't been able to eat or drink for three days and I'm waiting for this procedure. . Will check back and complete therapy session as appropriate. Check No Charge Time attempted: AUniversSelect [facility] [place]12-12-2024 Note Attestation signed by Franklyn Lau MD at 07/28/2024 5:36 PM I personally saw and examined the patient on the same date of service as resident/fellow saw the patient. I discussed the findings and therapeutic plan which is reflected on the plan in the note. I agree with the documentation Cesar Denise MD, Keith Barton MD, , Compa Barrios MD, Franklyn Lau MD, Ramesh Soto MD Urology - Progress Note Chief Complaint: Bilateral hydronephrosis Subjective: No acute events overnight. Afebrile, VSS Patient denies fever, chills, nausea, vomiting, chest pain, SOB Pain level: Denies flank pain UOP: 1.2 L in 24 hours Labs pending Weight: (pt refused to step on scale and said he will prefer his weight to be gotten later in the day. The bed scale is not functioning properly.) Patient Vitals for the past 24 hrs: BP Temp Temp src Pulse Resp SpO2 07/28/24 0403 163/80 36.1 ???C (96.9 ???F) 63 19 98 % 07/28/24 0000 159/69 36.6 ???C (97.8 ???F) 69 22 97 % 07/27/242029 151/70 37.1 ???C (98.7 ???F) 67 22 93 % 07/27/241999 154/68 36.9 ???C (98.4 ???F) -- 69 18 -- 07/27/24 1754 162/67 36.8 ???C (98.2 ???F) -- 98 20 -- 07/27/24 1732 -- 36.9 ???C (98.5 ???F) -- -- -- -- 07/27/24 1730 -- 37.1 ???C (98.7 ???F) Oral -- -- -- 07/27/24 1715 146/63 36.6 ???C (97.8 ???F) -- 63 19 97 % 07/27/24 0800 135/57 -- -- 71 19 95 % Intake/Output Summary (Last 24 hours) at 07/28/2024 0704 Last data filed at 07/28/2024 0700 Gross per 24 hour Intake 806.5 ml Output 1700 ml Net -893.5 ml Results from last 7 days Lab Units 07/28/24 0442 07/27/24 0515 07/26/24 0445 SODIUM mmol/L 140 142 138 POTASSIUM mmol/L 4.2 3.9 4.2 CHLORIDE mmol/L 109* 106 108* CO2 mmol/L 26 29 21 BUN mg/dL 46* 61* 71* CREATININE mg/dL 3.89* 4.98* 6.28* CALCIUM mg/dL 7.9* 7.8* 8.0* Results from last 7 days Lab Units 07/27/2451407/26/2444407/25/24 0450 WBC AUTO 10*3/uL 5.37 7.94 7.15 HEMOGLOBIN g/dL 6.9* 7.3* 7.7* HEMATOCRIT % 21.1* 22.2* 23.6* PLATELETS AUTO 10*3/uL 148* 146* 148* Lab Results Component Value Date UROBILINOGEN Normal 07/25/2024 Physical Exam: Constitutional: not in acute distress, appears stated age HEENT: no gross abnormality Respiratory: equal and bilateral chest rise, breathing room air Cardiovascular: Regular rhythm and rate, distal pulses palpable Abdominal: Soft, nontender, nondistended, non peritonitic Extremities: No swelling of extremities : SPT in place draining clear yellow urine Additional Lab/culture results: Ucx no growth Interval Imaging Findings: None Impression: 79-year-old male with multiple myeloma, has history of chronic bilateral hydronephrosis, managed with chronic ureteral stent exchanges, last had stents exchanged 2 months ago. He also has neurogenic bladder secondary to multiple myeloma and is managed with SPT. He presented with renal failure, repeat CT is showing what appears to be worsening hydronephrosis. Given this, we will plan to exchange bilateral stents. Plan: NPO for cystoscopy and bilateral ureteral stent exchange today Recommend following up cultures from outside hospital and tailoring antibiotics based off of prior cultures. Monitor urinary output Trend creatinine daily Urology will continue to follow Chad Munoz MD Urology Resident, PGY-4[facility]12-11-2024 Note Occupational Therapy Name: Patsy Cunningham Date of : 1945 Today's Date: 07/27/24 Pt is unable to be seen for therapy at this time secondary to PICC team arriving to place IV at this time . Will check back and complete therapy session as appropriate. Check No Charge Time attempted: 1400[facility] NoteHospital Medicine Daily Progress Note - 07/27/2024 12:34 PM; Room: [address] [place] [address] Admission: 07/24/2024 4:16 PM; Length of stay: 3 days THE HOSPITALIST TEAM PREFERS TO USE [employer] FOR NON-URGENT COMMUNICATION 7AM-7PM. IF I DO NOT RESPOND WITHIN 20 MINUTES OR URGENT MATTERS, PLEASE CALL THROUGH THE [employer]. FROM 7PM-7AM, PLEASE PAGE [phone](COVR). Code Status: Full Code Barriers to Discharge: renal function Expected Discharge Date: 3 - 4 days Discharge Destination: home Overview Patsy Cunningham is an 79 y.o. male with a history of hydronephrosis requiring ureteral stents and a chronic suprapubic catheter who came from [facility] as a transfer requiring higher level of care related to need for nuclear scan for assessment of obstruction as well as potential initiation of hemodialysis. Patient initially went to outside hospital with complaints of UTI and RINA and was admitted on 07/20/24. At outside hospital, patient was is suspicion that patient has another obstruction for which he requires nuclear scans and potential stent placement for which initiation was transferred to [facility]. Patient's potassium has remained stable with worsening creatinine from 4 initially to 6 today despite continuous IV fluids. Patient's vitals have remained stable. Hemoglobin has been decreasing 10 on admission 07/20 and 7.7 today. Patient will be transfused 1 unit PRBCs today. Subjective In bed No complaints Reports urology plans on stents Physical Exam Visit Vitals BP 143/59 (Patient Position: Lying) Pulse 65 Temp 36.2 ???C (97.1 ???F) (Temporal) Resp 12 Intake/Output Summary (Last 24 hours) at 07/27/2024 1234 Last data filed at 07/27/2024 1100 Gross per 24 hour Intake 118.33 ml Output 2650 ml Net -2531.67 ml Physical Exam Constitutional: Appearance: Normal appearance. HENT: Head: Normocephalic. Mouth/Throat: Mouth: Mucous membranes are moist. Eyes: Extraocular Movements: Extraocular movements intact. Pupils: Pupils are equal, round, and reactive to light. Cardiovascular: Rate and Rhythm: Normal rate and regular rhythm. Pulmonary: Effort: Pulmonary effort is normal. Abdominal: General: Abdomen is flat. Palpations: Abdomen is soft. Musculoskeletal: General: Normal range of motion. Skin: General: Skin is warm. Neurological: General: No focal deficit present. Mental Status: He is alert. Psychiatric: Mood and Affect: Mood normal. Estimated body mass index is 31.94 kg/m??? as calculated from the following: Height as of this encounter: 1.778 m (5' 10 ). Weight as of this encounter: 101 kg (222 lb 9.6 oz). Active Inpatient Problems Principal Problem: Acute kidney injury superimposed on CKD ([facility]) Active Problems: Hydronephrosis Pyelonephritis Macrocytic anemia Assessment and Plan Acute renal failure on CKD 3b secondary to urinary obstruction - nephrology and urology consulted - Baseline Cr is 2 - 2.5 - Cr today is 4.98 - monitor daily BMP - urology does plan to exchange stents in AM, did discuss with urology Complicated UTI with sepsis - spoke with [facility] blood cultures NGTD. Urine culture was mixed cecil. Will fax report - spoke with urology and recommended to continue abx. Will place on rocephin for 7 more days Hyperkalemia - resolved - K 3.9 Chronic urinary retention s/p suprapubic catheter - CT shows, There are bilateral double-J ureter stents. There is gas within the right intrarenal collecting system which could be iatrogenic or could be due to a gas-forming organism. Moderately dilated intrarenal collecting systems which could be due to prior obstruction, reflux, or acute obstruction with nonfunctioning stents. Findings best assessed examination with other clinical data and comparison any outside studies if any exist - plan for stent exchange tomorrow Chronic bilateral hydronephrosis managed with chronic indwelling ureteral stents - CT shows, There are bilateral double-J ureter stents. There is gas within the right intrarenal collecting system which could be iatrogenic or could be due to a gas-forming organism. Moderately dilated intrarenal collecting systems which could be due to prior obstruction, reflux, or acute obstruction with nonfunctioning stents. Findings best assessed examination with other clinical data and comparison any outside studies if any exist - plan for stent exchange tomorrow History of multiple myeloma - a status post bone marrow transplantation/chemotherapy History of prostate CA - [place] 6 prostate cancer under active surveillance DMII insulin dependent - Glu 167-207 - on ISS - on lantus outpt, will start at 10 units Anemia - Hgb 6.9 - will transfuse 1 unit today - did consent patient, RN at bedside - monitor daily CBC VTE Prophylaxis: Heparin on hold Scheduled Meds atorvastatin, 20 mg, oral, q PM cefTRIAXone, 1 g, intravenous, q24h cholecalciferol, 2, (more content not included)...[facility]12-11-2024 NoteNephrology Progress Note Patient : Patsy Cunningham; 79 y.o. [facility] Attending: Cris Devries DO Admit Date: 07/24/2024 Hospital Day: 3 Reason for Consult: RINA on CKD3b, appreciate recommendations regarding initiation of hemodialysis. Subjective: History of present illness: Patsy Cunningham is a 79 y.o. male with a history of hydronephrosis requiring ureteral stents and a chronic suprapubic catheter who came from [facility] as a transfer requiring higher level of care related to need for nuclear scan for assessment of obstruction as well as potential initiation of hemodialysis. Patient initially went to outside hospital with complaints of UTI and RINA and was admitted on 07/20/24. At outside hospital, patient was is suspicion that patient has another obstruction for which he requires nuclear scans and potential stent placement for which initiation was transferred to [facility]. Patient's potassium has remained stable with worsening creatinine from 4 initially to 6 today despite continuous IV fluids. Patient's vitals have remained stable. Hemoglobin has been decreasing 10 on admission 07/20 and 7.7 today. Interval history: Patient was seen and examined at bedside this morning. There were no acute events overnight. Creatinine remains elevated at 4.98 though is trending down towards his baseline. He is has good urine output of 3500 mL in the last 24 hours and swelling has improved. CT abdomen pelvis shows what appears to be worsening hydronephrosis, given this Urology plan for bilateral stent exchange tomorrow. Objective: Input/Output: Intake/Output Summary (Last 24 hours) at 07/27/2024 1224 Last data filed at 07/27/2024 0959 Gross per 24 hour Intake 18.33 ml Output 2650 ml Net -2631.67 ml I/O last 3 completed shifts: In: 906.3 (9 mL/kg) [I.V.:906.3 (9 mL/kg)] Out: 4475 (44.3 mL/kg) [Urine:4475 (1.2 mL/kg/hr)] Weight: 101 kg Vital signs: Temperature: Temp: 36.2 ???C (97.1 ???F) TMax: Temp (24hrs), Av.4 ???C (97.6 ???F), Min:36.2 ???C (97.1 ???F), Max:36.8 ???C (98.3 ???F) Respirations: Resp: 12 Pulse: Heart Rate: 65 BP: BP: 143/59 BP Range: Systolic (24hrs), Av , Min:141 , Max:155 Diastolic (24hrs), Av, Min:59, Max:73 Wt Readings from Last 3 Encounters: 07/26/24 101 kg (222 lb 9.6 oz) Physical Exam Constitutional: Appearance: Normal appearance. HENT: Head: Normocephalic. Eyes: Extraocular Movements: Extraocular movements intact. Cardiovascular: Rate and Rhythm: Normal rate and regular rhythm. Heart sounds: Normal heart sounds. Pulmonary: Effort: Pulmonary effort is normal. Breath sounds: Normal breath sounds. Abdominal: General: Abdomen is flat. Bowel sounds are normal. Palpations: Abdomen is soft. Musculoskeletal: Right lower leg: No edema. Left lower leg: No edema. Skin: General: Skin is warm and dry. Coloration: Skin is not pale. Findings: No rash. Neurological: General: No focal deficit present. Mental Status: He is alert and oriented to person, place, and time. Psychiatric: Mood and Affect: Mood normal. Behavior: Behavior normal. Current Medications: Scheduled Meds: atorvastatin, 20 mg, oral, q PM cefTRIAXone, 1 g, intravenous, q24h cholecalciferol, 2,000 Units, oral, Daily cyanocobalamin, 1,000 mcg, oral, Daily famotidine, 20 mg, oral, Nightly heparin (porcine), 5,000 Units, subcutaneous, q12h EMMA insulin glargine, 10 Units, subcutaneous, Nightly insulin lispro, 0-10 Units, subcutaneous, TID with meals And insulin lispro, 0-8 Units, subcutaneous, Nightly multivitamin with iron-minerals, 15 mL, oral, Daily oxyBUTYnin XL, 10 mg, oral, BID Oxygen Therapy, , inhalation, Continuous Continuous Infusions: sodium chloride, 20 mL/hr PRN Meds: PRN medications: acetaminophen, glucose OR dextrose 50 % in water (D50W), diphenhydrAMINE-zinc acetate, melatonin, ondansetron ODT OR ondansetron, sennosides-docusate sodium Outpatient Medications: Medication Documentation Review Audit Reviewed by Patrica Byrd RN (Registered Nurse) on 07/24/24 at 1919 Medication Order Taking? Sig Documenting Provider Last Dose Status acetaminophen (Tylenol) 500 mg tablet [id number] Take 650 mg by mouth every 6 (six) hours if needed for mild pain (1-3 pain score). Historical ProviderMD Active aspirin 81 mg EC tablet [id number] Take 81 mg by mouth in the morning. Historical ProviderMD Active atorvastatin (Lipitor) 20 mg tablet [id number] Take 20 mg by mouth in the evening. Historical ProviderMD Active cholecalciferol (Vitamin D3) 50 MCG (1999 UT) tablet [id number] Take 2,000 Units by mouth. Historical ProviderMD Active cyanocobalamin (Vitamin B-12) 1,000 mcg tablet [id number] Take 1,000 mcg by mouth in the morning. Historical ProviderMD Active darbepoetin raymond (Aranesp, in polysorbate,) syringe [id number] Inject 10 mcg under the skin if needed (every other week as need (more content not included)...[facility]12-11-2024 NotePpieter Denise MD, Keith Barton MD, , Compa Barrios MD, Franklyn Lau MD, Ramesh Soto MD Urology - Progress Note Chief Complaint: Bilateral hydronephrosis Subjective: No acute events overnight. Afebrile, VSS Patient denies fever, chills, nausea, vomiting, chest pain, SOB Pain level: Denies flank pain UOP: 1.5 L in 24 hours WBC: 5.37 (7.94) Hgb: 6.9 (7.3) Cr: 4.98 (6.28) Weight: (pt refused to step on scale and said he will prefer his weight to be gotten later in the day. The bed scale is not functioning properly.) Patient Vitals for the past 24 hrs: BP Temp Temp src Pulse Resp SpO2 07/27/24 0400 143/59 36.2 ???C (97.1 ???F) 65 12 93 % 07/27/24 0000 155/73 36.3 ???C (97.4 ???F) 79 24 95 % 07/26/242005 141/62 36.8 ???C (98.3 ???F) 68 17 98 % 07/26/24 0815 (!) 121/94 36.8 ???C (98.3 ???F) Oral 69 25 -- Intake/Output Summary (Last 24 hours) at 07/27/2024 0802 Last data filed at 07/27/2024 0508 Gross per 24 hour Intake -- Output 2650 ml Net -2650 ml Results from last 7 days Lab Units 07/27/2451407/26/2444407/25/24 1438 07/25/24 0450 SODIUM mmol/L 142 138 -- 137 POTASSIUM mmol/L 3.9 4.2 4.8 5.2* CHLORIDE mmol/L 106 108* -- 111* CO2 mmol/L 29 21 -- 20* BUN mg/dL 61* 71* -- 75* CREATININE mg/dL 4.98* 6.28* -- 6.22* CALCIUM mg/dL 7.8* 8.0* -- 8.5* Results from last 7 days Lab Units 07/27/24 0507/26/245 07/25/24 0450 WBC AUTO 10*3/uL 5.37 7.94 7.15 HEMOGLOBIN g/dL 6.9* 7.3* 7.7* HEMATOCRIT % 21.1* 22.2* 23.6* PLATELETS AUTO 10*3/uL 148* 146* 148* Lab Results Component Value Date UROBILINOGEN Normal 07/25/2024 Physical Exam: Constitutional: not in acute distress, appears stated age HEENT: no gross abnormality Respiratory: equal and bilateral chest rise, breathing room air Cardiovascular: Regular rhythm and rate, distal pulses palpable Abdominal: Soft, nontender, nondistended, non peritonitic Extremities: No swelling of extremities : SPT in place draining clear yellow urine Additional Lab/culture results: Ucx no growth Interval Imaging Findings: History: Kidney failure, acute Renal failure, evaluate for signs of obstruction Renal failure, evaluate for signs of obstruction STUDY: Abdomen and pelvis CT without intravenous contrast CT ABDOMEN PELVIS WO IV CONTRAST COMPARISON: none TECHNIQUE: CT performed through the abdomen and pelvis without IV contrast .The lack of IV contrast compromises evaluation of the abdominal parenchymal organs, adenopathy, and bowel.Automated exposure control was utilized. FINDINGS: There are bilateral double-J ureter stents. There is gas within the right intrarenal collecting system which could be iatrogenic or could be due to a gas-forming organism. Moderately dilated intrarenal collecting systems which could be due to prior obstruction, reflux, or acute obstruction with nonfunctioning stents. Findings best assessed examination with other clinical data and comparison any outside studies if any exist Terminal ileum and appendix appropriate. No evidence for small bowel obstruction. Mildly distended small bowel loops suggest mild ileus Gallstones are demonstrated Multiple incidental calcified granulomas within the liver and spleen. Otherwise liver spleen pancreas and adrenal glands show no acute findings Bladder decompressed by a suprapubic catheter. IMPRESSION: There are bilateral double-J ureter stents. There is gas within the right intrarenal collecting system which could be iatrogenic or could be due to a gas-forming organism. Moderately dilated intrarenal collecting systems which could be due to prior obstruction, reflux, or acute obstruction with nonfunctioning stents. Findings best assessed examination with other clinical data and comparison any outside studies if any exist Consider repeat CT with oral and IV contrast if you suspect occult process All CT scans at this facility use dose modulation, iterative reconstruction, and/or weight based dosing when appropriate to reduce radiation dose to as low as reasonably achievable. Impression: 79-year-old male with multiple myeloma, has history of chronic bilateral hydronephrosis, managed with chronic ureteral stent exchanges, last had stents exchanged 2 months ago. He also has neurogenic bladder secondary to multiple myeloma and is managed with SPT. He presented with renal failure, repeat CT is showing what appears to be worsening hydronephrosis. Given this, we will plan to exchange bilateral stents. Plan: Will make patient NPO at midnight for bilateral ureteral stent exchange tomorrow Recommend following up cultures from outside hospital and tailoring antibiotics based off of prior cultures. Monitor urinary output Trend creatinine daily Urology will continue to follow Chad Munoz MD Urology Resident, PGY-4 By using the attestations below, the signing clinician a (more content not included)...[facility]12-10-2024 NoteHospital Medicine Daily Progress Note - 07/26/2024 2:56 PM; Room: [address] [place] [address] Admission: 07/24/2024 4:16 PM; Length of stay: 2 days THE HOSPITALIST TEAM PREFERS TO USE [employer] FOR NON-URGENT COMMUNICATION 7AM-7PM. IF I DO NOT RESPOND WITHIN 20 MINUTES OR URGENT MATTERS, PLEASE CALL THROUGH THE [employer]. FROM 7PM-7AM, PLEASE PAGE [phone](COVR). Code Status: Full Code Barriers to Discharge: renal function Expected Discharge Date: 3 - 4 days Discharge Destination: home Overview Patsy Cunningham is an 79 y.o. male with a history of hydronephrosis requiring ureteral stents and a chronic suprapubic catheter who came from [facility] as a transfer requiring higher level of care related to need for nuclear scan for assessment of obstruction as well as potential initiation of hemodialysis. Patient initially went to outside hospital with complaints of UTI and RINA and was admitted on 07/20/24. At outside hospital, patient was is suspicion that patient has another obstruction for which he requires nuclear scans and potential stent placement for which initiation was transferred to [facility]. Patient's potassium has remained stable with worsening creatinine from 4 initially to 6 today despite continuous IV fluids. Patient's vitals have remained stable. Hemoglobin has been decreasing 10 on admission 07/20 and 7.7 today. Subjective Patient in bed. Saw twice today. Saw second time with to answer her questions. Physical Exam Visit Vitals BP (!) 121/94 Pulse 69 Temp 36.8 ???C (98.3 ???F) (Oral) Resp 25 Intake/Output Summary (Last 24 hours) at 07/26/2024 1456 Last data filed at 07/26/2024 1400 Gross per 24 hour Intake 906.25 ml Output 3025 ml Net -2118.75 ml Physical Exam Constitutional: Appearance: Normal appearance. HENT: Head: Normocephalic. Mouth/Throat: Mouth: Mucous membranes are moist. Eyes: Extraocular Movements: Extraocular movements intact. Pupils: Pupils are equal, round, and reactive to light. Cardiovascular: Rate and Rhythm: Normal rate and regular rhythm. Pulmonary: Effort: Pulmonary effort is normal. Abdominal: General: Abdomen is flat. Palpations: Abdomen is soft. Musculoskeletal: General: Normal range of motion. Skin: General: Skin is warm. Neurological: General: No focal deficit present. Mental Status: He is alert. Psychiatric: Mood and Affect: Mood normal. Estimated body mass index is 31.94 kg/m??? as calculated from the following: Height as of this encounter: 1.778 m (5' 10 ). Weight as of this encounter: 101 kg (222 lb 9.6 oz). 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 Urine culture was mixed cecil. - continue rocephin Hyperkalemia - resolved - K 4.2 - s/p lokelma Chronic urinary retention s/p suprapubic catheter - renal US ordered by urology, discussed results with urology and they report unspecific and may order a CT Chronic bilateral hydronephrosis managed with chronic indwelling ureteral stents - urology following History of multiple myeloma - a status post bone marrow transplantation/chemotherapy History of prostate CA - [place] 6 prostate cancer under active surveillance DMII insulin dependent - Glu 137-234 - on ISS - on lantus outpt, will start at 10 units Anemia - Hgb 7.3 - monitor daily CBC VTE Prophylaxis: Heparin on hold Scheduled Meds atorvastatin, 20 mg, oral, q PM cefTRIAXone, 1 g, intravenous, q24h cholecalciferol, 2,000 Units, oral, Daily cyanocobalamin, 1,000 mcg, oral, Daily famotidine, 20 mg, oral, Nightly heparin (porcine), 5,000 Units, subcutaneous, q12h EMMA insulin glargine, 10 Units, subcutaneous, Nightly insulin lispro, 0-10 Units, subcutaneous, TID with meals And insulin lispro, 0-8 Units, subcutaneous, Nightly multivitamin with iron-minerals, 15 mL, oral, Daily oxyBUTYnin XL, 10 mg, oral, BID Oxygen Therapy, , inhalation, Continuous sodium bicarbonate 150 mEq in sterile water 1,000 mL infusion, 75 mL/hr, Last Rate: 75 mL/hr (07/26/24 0217) Pertinent Investigations Hematology: Results from last 7 days Lab Units 07/26/24 0445 07/25/24 0450 WBC AUTO 10*3/uL 7.94 7.15 HEMOGLOBIN g/dL 7.3* 7.7* HEMATOCRIT % 22.2* 23.6* MCV fL 109.9* 106.8* PLATELETS AUTO 10*3/uL 146* 148* Chemistry: Results from last 7 days Lab Units 07/26/24 0445 07/25/24 1438 07/25/24 0450 07/24/24 1855 SODIUM mmol/L 138 -- 137 137 POTASSIUM mmol/L 4.2 4.8 5.2* 5.1 CHLORIDE mmol/L 108* -- 111* 111* CO2 mmol/L 21 -- 20* 17* B (more content not included)...[facility]12-10-2024 Note07/26/24 1411 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 No () Screened by [facility]. Reviewed PT/OT, they recommend home. Per Hospitalist urology is following and possible CT. Await renal US results. Currently DC plan home no needs. will transport upon DC.[facility]12-10-2024 NoteNephrology Progress Note Patient : Patsy Cunningham; 79 y.o. Location: Attending: Cris Devries DO Admit Date: 07/24/2024 Hospital Day: 2 Reason for Consult: RINA on CKD3b, appreciate recommendations regarding initiation of hemodialysis. Subjective: History of present illness: Patsy Cunningahm is a 79 y.o. male with a history of hydronephrosis requiring ureteral stents and a chronic suprapubic catheter who came from [facility] as a transfer requiring higher level of care related to need for nuclear scan for assessment of obstruction as well as potential initiation of hemodialysis. Patient initially went to outside hospital with complaints of UTI and RINA and was admitted on 07/20/24. At outside hospital, patient was is suspicion that patient has another obstruction for which he requires nuclear scans and potential stent placement for which initiation was transferred to [facility]. Patient's potassium has remained stable with worsening creatinine from 4 initially to 6 today despite continuous IV fluids. Patient's vitals have remained stable. Hemoglobin has been decreasing 10 on admission 07/20 and 7.7 today. Interval history: Patient was seen and examined in bed this morning. There were no acute events overnight. He continues on NaHCO3 IV fluids at 75 mL/hr and has made 1500 mL urine in last 24 hours. Mild swelling has improved. He complains of a painful sensation associated with bladder spasms but otherwise is asymptomatic. Objective: Input/Output: Intake/Output Summary (Last 24 hours) at 07/26/2024 1253 Last data filed at 07/26/2024 0450 Gross per 24 hour Intake 956.25 ml Output 1575 ml Net -618.75 ml I/O last 3 completed shifts: In: 956.3 (9.5 mL/kg) [I.V.:906.3 (9 mL/kg); IV Piggyback:50] Out: 2975 (29.5 mL/kg) [Urine:2975 (0.8 mL/kg/hr)] Weight: 101 kg Vital signs: Temperature: Temp: 36.8 ???C (98.3 ???F) TMax: Temp (24hrs), Av.7 ???C (98.1 ???F), Min:36.4 ???C (97.5 ???F), Max:36.9 ???C (98.5 ???F) Respirations: Resp: 25 Pulse: Heart Rate: 69 BP: BP: (!) 121/94 BP Range: Systolic (24hrs), Av , Min:108 , Max:158 Diastolic (24hrs), Av, Min:65, Max:94 Wt Readings from Last 3 Encounters: 07/26/24 101 kg (222 lb 9.6 oz) Physical Exam Constitutional: Appearance: Normal appearance. HENT: Head: Normocephalic. Eyes: Extraocular Movements: Extraocular movements intact. Cardiovascular: Rate and Rhythm: Normal rate and regular rhythm. Heart sounds: Normal heart sounds. Pulmonary: Effort: Pulmonary effort is normal. Breath sounds: Normal breath sounds. Abdominal: General: Abdomen is flat. Bowel sounds are normal. Palpations: Abdomen is soft. Musculoskeletal: Right lower leg: No edema. Left lower leg: No edema. Skin: General: Skin is warm and dry. Coloration: Skin is not pale. Findings: No rash. Neurological: General: No focal deficit present. Mental Status: He is alert and oriented to person, place, and time. Psychiatric: Mood and Affect: Mood normal. Behavior: Behavior normal. Current Medications: Scheduled Meds: atorvastatin, 20 mg, oral, q PM cefTRIAXone, 1 g, intravenous, q24h cholecalciferol, 2,000 Units, oral, Daily cyanocobalamin, 1,000 mcg, oral, Daily famotidine, 20 mg, oral, Nightly heparin (porcine), 5,000 Units, subcutaneous, q12h EMMA insulin glargine, 10 Units, subcutaneous, Nightly insulin lispro, 0-10 Units, subcutaneous, TID with meals And insulin lispro, 0-8 Units, subcutaneous, Nightly multivitamin with iron-minerals, 15 mL, oral, Daily oxyBUTYnin XL, 10 mg, oral, BID Oxygen Therapy, , inhalation, Continuous Continuous Infusions: sodium bicarbonate 150 mEq in sterile water 1,000 mL infusion, 75 mL/hr, Last Rate: 75 mL/hr (07/26/24 0217) PRN Meds: PRN medications: acetaminophen, glucose OR dextrose 50 % in water (D50W), melatonin, ondansetron ODT OR ondansetron, sennosides-docusate sodium Outpatient Medications: Medication Documentation Review Audit Reviewed by Patrica Byrd RN (Registered Nurse) on 07/24/24 at 1919 Medication Order Taking? Sig Documenting Provider Last Dose Status acetaminophen (Tylenol) 500 mg tablet [id number] Take 650 mg by mouth every 6 (six) hours if needed for mild pain (1-3 pain score). Historical Provider, Active aspirin 81 mg EC tablet [id number] Take 81 mg by mouth in the morning. Historical Provider, Active atorvastatin (Lipitor) 20 mg tablet [id number] Take 20 mg by mouth in the evening. Historical Provider, Active cholecalciferol (Vitamin D3) 50 MCG (2000 UT) tablet [id number] Take 2,000 Units by mouth. Historical Provider, Active cyanocobalamin (Vitamin B-12) 1,000 mcg tablet [id number] Take 1,000 mcg by mouth in the morning. Historical Provider, Active darbepoetin raymond (Aranesp, in polysorbate,) syringe [id number] Inject 10 mcg under the skin if needed (every other week as needed for hgb <10) (more content not included)...[facility]12-09-2024 NoteHospital Medicine Daily Progress Note - 07/25/2024 1:02 PM; Room: [address] [place] [address] Admission: 07/24/2024 4:16 PM; Length of stay: 1 days THE HOSPITALIST TEAM PREFERS TO USE [employer] CHAT FOR NON-URGENT COMMUNICATION 7AM-7PM. IF I DO NOT RESPOND WITHIN 20 MINUTES OR URGENT MATTERS, PLEASE CALL THROUGH THE SLAG DUMPER. FROM 7PM-7AM, PLEASE PAGE [phone](COVR). Code Status: Full Code Barriers to Discharge: renal function Expected Discharge Date: 3 - 4 days Discharge Destination: home Overview Patsy Cunningham is an 79 y.o. male with a history of hydronephrosis requiring ureteral stents and a chronic suprapubic catheter who came from [facility] as a transfer requiring higher level of care related to need for nuclear scan for assessment of obstruction as well as potential initiation of hemodialysis. Patient initially went to outside hospital with complaints of UTI and RINA and was admitted on 07/20/24. At outside hospital, patient was is suspicion that patient has another obstruction for which he requires nuclear scans and potential stent placement for which initiation was transferred to [facility]. Patient's potassium has remained stable with worsening creatinine from 4 initially to 6 today despite continuous IV fluids. Patient's vitals have remained stable. Hemoglobin has been decreasing 10 on admission 07/20 and 7.7 today. Subjective Patient sitting in chair States he has gas Reports last bowel movement yesterday Reports he has minimal appetite and not eating much Physical Exam Visit Vitals BP 131/59 Pulse 61 Temp 36.6 ???C (97.9 ???F) (Temporal) Resp 21 Intake/Output Summary (Last 24 hours) at 07/25/2024 1302 Last data filed at 07/25/2024 0400 Gross per 24 hour Intake -- Output 1400 ml Net -1400 ml Physical Exam Constitutional: Appearance: Normal appearance. HENT: Head: Normocephalic. Mouth/Throat: Mouth: Mucous membranes are moist. Eyes: Extraocular Movements: Extraocular movements intact. Pupils: Pupils are equal, round, and reactive to light. Cardiovascular: Rate and Rhythm: Normal rate and regular rhythm. Pulmonary: Effort: Pulmonary effort is normal. Abdominal: General: Abdomen is flat. Palpations: Abdomen is soft. Musculoskeletal: General: Normal range of motion. Skin: General: Skin is warm. Neurological: General: No focal deficit present. Mental Status: He is alert. Psychiatric: Mood and Affect: Mood normal. Estimated body mass index is 29.41 kg/m??? as calculated from the following: Height as of this encounter: 1.778 m (5' 10 ). Weight as of this encounter: 93 kg (205 lb). 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 Urine culture was mixed cecil. Will fax report - spoke with urology and recommended to continue abx. Will place on rocephin for 7 more days Hyperkalemia - K 5.2 - lokelma ordered Chronic urinary retention s/p suprapubic catheter - renal US ordered by urology Chronic bilateral hydronephrosis managed with chronic indwelling ureteral stents - renal ultrasound ordered by urology History of multiple myeloma - a status post bone marrow transplantation/chemotherapy History of prostate CA - Selene 6 prostate cancer under active surveillance DMII insulin dependent - Glu 150-213 - on ISS - on lantus outpt, will start at 10 units Anemia - Hgb 7.7 - monitor daily CBC VTE Prophylaxis: Heparin on hold Scheduled Meds [Held by provider] heparin (porcine), 5,000 Units, subcutaneous, q12h EMMA insulin lispro, 0-10 Units, subcutaneous, TID with meals And insulin lispro, 0-8 Units, subcutaneous, Nightly Oxygen Therapy, , inhalation, Continuous sodium zirconium cyclosilicate, 10 g, oral, TID sodium bicarbonate 150 mEq in sterile water 1,000 mL infusion, 75 mL/hr, Last Rate: 75 mL/hr (07/25/24 1033) Pertinent Investigations Hematology: Results from last 7 days Lab Units 07/25/24 0450 07/24/24 1855 WBC AUTO 10*3/uL 7.15 7.08 HEMOGLOBIN g/dL 7.7* 8.2* HEMATOCRIT % 23.6* 25.8* MCV fL 106.8* 109.3* PLATELETS AUTO 10*3/uL 148* 152 Chemistry: Results from last 7 days Lab Units 07/25/24 0450 07/24/24 1855 SODIUM mmol/L 137 137 POTASSIUM mmol/L 5.2* 5.1 CHLORIDE mmol/L 111* 111* CO2 mmol/L 20* 17* BUN mg/dL 75* 74* CREATININE mg/dL 6.22* 6.20* GLUCOSE mg/dL 187* 158* MAGNESIUM mg/dL 2.0 2.1 CALCIUM mg/dL 8.5* 8.9 No lab exists for component: AFIO2 , APHT , APCOT , APOT , ATCO2 , CK , ALB , IBILI Results from last 7 days Lab Units 07/25/24 1208 07/24/24 2111 POCT GLUCOSE (more content not included)...[facility] 07-25-2024 Note07/25/24 0921 Admission Assessment Questions Verify insurance with patient Yes Do you understand medical disease or what brought you into the hospital? Yes Who is your current PCP? Helen Heath [facility]-updated in [facility] Can I schedule a follow up appointment for you at the time of discharge? Yes Do you understand why you are taking your current medications? Yes Are you taking your medications as prescribed? Yes Did patient provide teach back? Yes Pharmacy Bedside Delivery Status Interested Does the patient have a showcase trimmer assigned to them through their insurance? No Living Arrangement (Current/Prior to Hospitalization) Private residence Does the patient have history of HHC or SNF? No Assistive Device Cane;Walker;Wheelchair Patient's goal for discharge Return home with Was patient reminded that goal for discharge is 11am? Yes Does the patient have transportation at discharge? Yes () Type of Residence Private residence Is PT/OT appropriate? No Is PT/OT ordered? No Is SW consult appropriate? Yes Is SW consult ordered? Yes Do you understand the benefits of MyChart? Yes Were you able to send link and activate [facility]Chart? [facility]upational Therapy Occupational Therapy Evaluation Patient Name: Patsy Cunningham : 1945 Today's Date: 07/25/2024 Discharge Recommendation: Home 79 y/o M admitted with RINA and possible need for ureter stent. Initiated session with pt supine in bed. Pt supine to sit, reported lightheadedness, static sitting, tolerated ROM and MMT, demo access to BLE, sit to stand with cane, functional mobility to bathroom, stand to sit on toilet, unsuccessful attempt at BM, sit to stand, to sink, hand hygiene, to chair, and stand to sit. Concluded session with pt seated in chair with call light in reach. RN approved pt for OOB activity this date and pt agreeable. Time In: 0800 Time Out: 0838 General Subjective: Pt pleasant and cooperative Family/Caregiver Present: No Patient Active Problem List Diagnosis Acute kidney injury superimposed on CKD (CMS/HCC) Hydronephrosis Pyelonephritis Macrocytic anemia No past medical history on file. No past surgical history on file. Precautions Precautions Medical Precautions: fall risk, bond, telemetry Pain Pain Assessment Pain Assessment: (pt reports pain in feet with WB only but did not rate) Cognition Cognition Overall Cognitive Status: Within Functional Limits General Assessment General Assessment Hearing: mild [place] Hand Dominance: Left Home Living Home Living Type of Home: House Lives With: Spouse Home Adaptive Equipment: Walker rolling, Cane, Wheelchair-manual, Rollator Home Layout: One level Home Access: Stairs to enter with rails Entrance Stairs-Number of Steps: 3 Bathroom Shower/Tub: Tub/shower unit Bathroom Toilet: Standard Bathroom Equipment: Grab bars in shower, Grab bars around toilet, Shower chair with back, Hand-held shower Prior Level of Function Prior Function Level of [place]: Independent with ADLs and functional transfers, Independent with homemaking with ambulation (drives, pt does not wear socks at baseline d/t inability to access feet) Prior Functional Mobility: Independent with cane Prior IADLs Static Sitting Balance Static Sitting Balance Static Sitting-Balance Support: Feet supported Static Sitting-Level of Assistance: Independent Dynamic Sitting Balance Dynamic Sitting Balance Dynamic Sitting-Balance Support: Feet supported Dynamic Sitting-Balance: Forward lean, Reaching for objects Dynamic Sitting Balance-Level of Assistance: Independent Static Standing Balance Static Standing Balance Static Standing-Balance Support: Unilateral upper extremity supported, With device Static Standing-Level of Assistance: Close supervision Dynamic Standing Balance Dynamic Standing Balance Dynamic Standing-Balance Support: Unilateral upper extremity supported, With device Dynamic Standing Balance-Level of Assistance: Close supervision ADL ADL Eating Assistance: Independent Grooming Assistance: Stand by Grooming Deficit: Wash/dry hands Bathing Assistance: Stand by UE Dressing Assistance: Stand by UE Dressing Deficit: (managing gown) LE Dressing Assistance: Minimal LE Dressing Deficit: (pt demo ability to reach to BLE for looping underwear/pants) Toileting Assistance with Device: Stand by Toileting Deficit: (seated on toilet for attempted ROSSANA, velia) Bed Mobility Bed Mobility Bed Mobility: Yes Bed Mobility 1 Bed Mobility From 1: Supine Bed Mobility Type 1: To Bed Mobility to 1: Short sit Level of Assistance 1: Independent Transfers Transfers Transfer: Yes Transfer 1 Transfer From 1: Bed Transfer Type 1: To Transfer to 1: Toilet Technique 1: Sit to stand, Stand to sit Transfer Device 1: straight cane Transfer Level of Assistance 1: Close supervision Transfers 2 Transfer From 2: Toilet Transfer Type 2: To Transfer to 2: Chair with arms Technique 2: Sit to stand, Stand to sit Transfer Device 2: straight cane Transfer Level of Assistance 2: Close supervision Objective General Assessments Activity Tolerance Endurance: Stage III Activity Tolerance Comments: Hgb 7.7 Vision - Basic Assessment Current Vision: Wears glasses only for reading Sensation Light Touch: No apparent deficits Coordination Movements are Fluid and Coordinated: Yes Extremity Assessments RUE Assessment RUE Assessment: Exceptions to WFL RUE Strength R Hand Presiding Judge Strength: 4-/5 LUE Assessment LUE Assessment: Exceptions to WFL LUE Strength L Hand Presiding Judge Strength: 4-/5 L Shoulder Flexion: 3+/5 (baseline) Outcome Assessments AM-PAC 6 Clicks Putting on and taking off regular lower body clothing?: A Little (Min Assist/Contact Guard/Supervision) Bathing(Including washing,rinsing,drying)?: A Little (Min Assist/Contact Guard/Supervision) Toileting, which includes using the toilet,bedpan,or urinal?: A Little (Min Assist/Contact Guard/Supervision) Putting on and taking off regular upper body clothing?: A Little (Min (more content not included)...[facility]12-09-2024 Note Attestation signed by Mikki Smith PT at 07/25/2024 2:02 PM This typewriter aligner present and provided 1:1 supervision, direction of patient care and assistance with development of plan of care. Mikki Smith PT, MPT Physical Therapy Evaluation Patient Name: Patsy Cunningham Today's Date: 07/25/2024 Admit Date: 07/24/2024 07/25/24 1200 PT Last Visit PT Received On 07/25/24 Plan Level of assist 1 assist PT Plan No skilled PT No Skilled PT No acute PT goals identified PT Discharge Recommendations Home PT - Discharge Recommendations Placed Yes History of present illness Patient is a 79 y.o. male admitted on 07/20/24 to an outside hospital with complaints of UTI and RINA. Pt presents as a transfer due to requiring higher level of care related to need for nuclear scan for assessment of obstruction and potential initiation of hemodialysis. Past Medical History DM type 2, hydronephrosis Current Diagnoses Acute kidney injury superimposed on chronic disease PRIOR LEVEL OF FUNCTION obtained per patient Vision: glasses for reading only Hearing: WNL Mobility: uses straight cane for household distances. , uses straight cane for community distances. ADLs: independent with grooming, bathing, and dressing IADLs/household management: dependent with cooking, laundry, and cleaning Transportation: drives Occupation: retired Recreation/leisure interests: watching tv Pt r/o always having his cane with him due to dizziness. Pt states dizziness can last from 1-2 minutes to an hour or so. Social support spouse / significant other Home Set-Up: Patient lives with spouse in a 1 story home with 3 steps to enter with hand railing Bedroom location: 1st floor Bathroom location: 1st floor Additional DME/adaptive equipment: Rolling walker, Rollator, Straight cane, and Manual wheelchair Pt left up in bedside chair, call light w/in reach, RN aware OBJECTIVE ASSESSMENT/PHYSICAL EXAM Cognition Alert Overall Cognitive Status: WNL Arousal/Alertness: Appropriate responses to stimuli Orientation Level: Oriented x4 Following Commands: Follows all commands and directions without difficulty Safety Judgment: Good awareness of safety precautions Awareness of Errors: Good awareness of errors made Attention Span: Appears intact Memory: Appears intact Problem Solving: Able to problem solve independently Communication: Intact Pain: Denies pain Sensation: Impaired; numbness in JOSE hands and JOSE feet Edema/Skin Appearance: WNL Coordination/Tone: WNL Precautions IV, telemetry, bond catheter Objective assessment Bed mobility Not performed Upon arrival pt was sitting in bedside chair Transfers Sit to stand: independent and Stand to sit: independent Needed extra time Gait Patient ambulates 100 feet, with Straight cane, and independently No gait abnormalities noted Stairs Ascended 3 stairs reciprocal gait with use of handrail Descended 3 stairs reciprocal gait with use of handrail Endurance Able to manage household distances, Able to manage short community distances, and Able to manage community distances Vitals Stable/unchanged significantly Balance Sitting: patient able to sit independently with both feet on ground, without upper extremity assist. Standing: patient able to stand with straight cane and independent assistance Pt stepped on debris on floor, c/o pain in heel, demonstrated independent correction of loss of balance Posture WNL ROM UE ROM: WNL LE ROM: WNL Strength UE strength: WNL LE strength: WNL Core strength: WNL Education Verbal, Demonstration, Feedback during session, Functional mobility, and Safety Mobility 6-Click T-Score: 07/25/24 1201 6 Clicks (Mobility) Help from another person turning from your back to your side while in a flat bed without using bedrails 4 Help from another person moving from lying on your back to sitting on the side of a flat bed without using bedrails 4 Help from another person moving to and from a bed to a chair (including a wheelchair) 4 Help from another person standing up from a chair using your arms (e.g. wheelchair or bedside chair) 4 Help from another person to walk in hospital room 4 Help from another person climbing 3-5 steps with a railing 4 Mobility 6 Clicks T-Score 24 Assessment Patient is Non-Skilled with regards to Physical Therapy Services Student PT, Whitney Sanders, was involved in the care of this patient with direct supervision of the [facility] centering therapist, who was present and actively involved in the patient's care. Whitney Sanders, [facility]12-08-2024 NoteHospital Medicine History and Physical 07/24/2024 11:28 PM THE HOSPITALIST TEAM PREFERS TO USE [employer] CHAT FOR NON-URGENT COMMUNICATION 7AM-7PM. IF I DO NOT RESPOND WITHIN 20 MINUTES OR URGENT MATTERS, PLEASE CALL THROUGH THE [employer]ER. FROM 7PM-7AM, PLEASE PAGE [phone](COVR). Chief Complaint Worsening RINA Need for nuclear scan with possible ureteral stent History of Present Illness Patsy Cunningham is an 79 y.o. male with a history of hydronephrosis requiring ureteral stents and a chronic suprapubic catheter who came from [facility] as a transfer requiring higher level of care related to need for nuclear scan for assessment of obstruction as well as potential initiation of hemodialysis. Patient initially went to outside hospital with complaints of UTI and RINA and was admitted on 07/20/24. At outside hospital, patient was is suspicion that patient has another obstruction for which he requires nuclear scans and potential stent placement for which initiation was transferred to [facility]. Patient's potassium has remained stable with worsening creatinine from 4 initially to 6 today despite continuous IV fluids. Patient's vitals have remained stable. Hemoglobin has been decreasing 10 on admission 07/20 and 7.7 today. Review of System and Physical Exam Temp: [36.5 ???C (97.7 ???F)-36.6 ???C (97.9 ???F)] 36.5 ???C (97.7 ???F) Heart Rate: [62-69] 62 Resp: [20-23] 20 BP: (155-169)/(64-72) 155/64 Physical Exam Vitals and nursing note reviewed. Constitutional: General: He is not in acute distress. Appearance: He is obese. He is not ill-appearing. HENT: Head: Normocephalic and atraumatic. Nose: Nose normal. Mouth/Throat: Mouth: Mucous membranes are moist. Pharynx: Oropharynx is clear. Eyes: Extraocular Movements: Extraocular movements intact. Conjunctiva/sclera: Conjunctivae normal. Pupils: Pupils are equal, round, and reactive to light. Cardiovascular: Rate and Rhythm: Normal rate and regular rhythm. Pulses: Normal pulses. Heart sounds: Normal heart sounds. Pulmonary: Effort: Pulmonary effort is normal. Breath sounds: Normal breath sounds. No wheezing or rhonchi. Abdominal: General: Bowel sounds are normal. There is distension. Palpations: Abdomen is soft. Musculoskeletal: General: Normal range of motion. Cervical back: Normal range of motion and neck supple. Right lower leg: Edema present. Left lower leg: Edema present. Comments: Trace-+1 in ankles/feet Skin: General: Skin is warm and dry. Capillary Refill: Capillary refill takes less than 2 seconds. Neurological: Mental Status: He is alert and oriented to person, place, and time. Psychiatric: Mood and Affect: Mood normal. Behavior: Behavior normal. Comments: Forgetful Review of Systems Constitutional: Negative. HENT: Negative. Eyes: Negative. Respiratory: Negative for cough, chest tightness, shortness of breath and wheezing. Cardiovascular: Positive for leg swelling. Negative for chest pain. Gastrointestinal: Negative for abdominal distention, constipation, diarrhea, nausea and vomiting. Genitourinary: Positive for dysuria. Negative for difficulty urinating, flank pain and urgency. Musculoskeletal: Negative. Negative for arthralgias, back pain and myalgias. Skin: Negative. Allergic/Immunologic: Negative. Neurological: Negative. Hematological: Negative. Psychiatric/Behavioral: Positive for decreased concentration. Negative for agitation, confusion and dysphoric mood. The patient is not nervous/anxious. Forgetful Problem List Principal Problem: Acute kidney injury superimposed on CKD (CMS/HCC) Active Problems: Hydronephrosis Pyelonephritis Macrocytic anemia Assessment and Plan Acute kidney injury superimposed on chronic disease, worsening -Nephrology consult -Creatinine continues to worsen despite IV fluids -Appreciate nephrology recommendations regarding initiation of hemodialysis. Patient denies any history of hemodialysis. - Denies flank pain, only endorses cloudy urine output Chronic suprapubic catheter Hydronephrosis Pyelonephritis status post completed therapy with IV antibiotics Status post ureteral stents Macrocytic anemia -Urology team consulted -Chronic diabetes mellitus type 2, if uncontrolled may be lending to exacerbation RINA and CKD - Mild erythema around suprapubic catheter site, nursing to educate patient and caregiver on keeping site clean and dry at all times for infection prevention - Denies flank pain, only endorses cloudy urine output. Diabetes mellitus type 2 AC/HS bedside glucose with insulin scale Chronic diabetes mellitus type 2, if uncontrolled may be lending to exacerbation RINA and CKD Diabetes/blood glucose management education recommended. Consider consult to dietitian. Admit to inpatient, on nailer machine vitals closely As needed oxygen to maintain SpO2 greater than 90% Daily labs Fall risk Co (more content not included)...[facility]10-25-2024 Hospital Discharge instructions Patient Education 06/10/2024 11:53:20 Prostate Cancer Prostate Cancer The prostate is [...] under a microscope. This is called the Eucha score and the total score can range from 6 10, indicating how likely it is that the cancer will spread (metastasize) to other parts of the body. The higher the score, the greater thelikelihood that the cancer will spread. Selene 6 or lower: This indicates that the cancer cells look similar to normal prostate cells (well differentiated). Selene 7: This indicates that the cancer cells look somewhat similar to normal prostate cells (moderately differentiated). Selene 8, 9, or 10: This indicates that [...] stress of having cancer. General instructions Take [id number] and prescription medicines only as told by your health care provider. If you have to go to the hospital, notify your cancer specialist (oncologist). Keep all follow-up visits. This is important. Where to find more information [employer]: www.cancer.org [place] [employer]: www.cancer.net National Cancer [place]: www.cancer.gov Contact a health care provider if: [...] provider. Document Revised: 10/30/2021 Document Reviewed: 10/30/2021 [place] Patient Education 2023 [employer]. Follow Up Care 06/07/2024 15:19:44 With:Diego RICKS, OUSMANE Bell, URO Address: When: Unknown [facility] Marcela 10-25-2024 NotePatient Education Oncology Prostate Cancer The prostate is [...] more likely to develop this condition if: ??? You are 65 years of age or older. ??? You have a family history of prostate cancer. ??? You have a family history of breast and ovarian cancer. ??? You have genes that are passed from parent to child (inherited), such as BRCA1 and BRCA2. ??? You have Eaton syndrome. men and men of descent are diagnosed with prostate cancer at higher rates than other men. The reasons for this are not well understood and are likely due to a combination of genetic and environmental factors. What are the signs or symptoms? Symptoms of this condition include: ??? Problems with urination. This may include: ? A weak or interrupted flow of urine. ? Trouble starting or stopping urination. ? Trouble emptying the bladder all the way. ? The need to urinate more often, especially at night. ??? Blood in urine or semen. ??? Persistent pain or discomfort in the lower back, lower abdomen, or hips. ??? Trouble getting an erection. ??? Weakness or numbness in the legs or feet. How is this diagnosed? This condition can be diagnosed with: ??? A digital rectal exam. For this exam, a health care provider inserts a gloved finger into the rectum to feel the prostate gland. ??? A blood test called a prostate-specific antigen (PSA) test. ??? A procedure in which a sample of tissue is taken from the prostate and checked under a microscope (prostate biopsy). ??? An imaging test called transrectal ultrasonography. Once the condition is diagnosed, tests will be done to determine how far the cancer has spread. This is called staging the cancer. Staging may involve imaging tests, such as a bone scan, CT scan, PETscan, or MRI. Stages of prostate cancer The stages of prostate cancer are as follows: ??? Stage 1 (I). At this stage, the cancer is found in the prostate only. The cancer is not visibleon imaging tests, and it is usually found by accident, such as during prostate surgery. ??? Stage 2 (II). At this stage, the cancer is more advanced than it is in stage 1, but the cancer has not spread outside the prostate. ??? Stage 3 (III). At this stage, the cancer has spread beyond the outer layer of the prostate to nearby tissues. The cancer may be found in the seminal vesicles, which are near the bladder and the prostate. ??? Stage 4 (IV). At this stage, the [...] greater thelikelihood that the cancer will spread. ??? Eucha 6 or lower: This indicates that the cancer cells look similar to normal prostate cells (well differentiated). ??? Selene 7: This indicates that the cancer cells look somewhat similar to normal prostate cells (moderately differentiated). ??? Selene 8, 9, or 10: This indicates that the cancer cells look very different than normal prostate cells (poorly differentiated). How is this treated? Treatment for this condition depends on several factors, including the stage of the cancer, your age, personal preferences, and your overall health. Talk with your health care provider about treatment options that are recommended for you. Common treatments include: ??? Observation for early stage prostate cancer (active surveillance). This involves having exams, blood tests, and in some cases, more biopsies. For some men, this is the only treatment needed. ??? Surgery. Types of surgeries include: ? Open [...] surgery to freeze and destroy cancer cells. ??? Radiation treatment. Types of radiation treatment include: ? External beam radiation. This type aims beams of radiation from outside the body at the prostate to destroy cancerous cells. ? Brachytherapy. This type uses radioactive needles, seeds, wires, o (more content not included)...[facility]10-20-2024 Discharge summary Author Mayda Matthews [facility] June 05, 2024 11:44am Note Date/Time June 05, 2024 1 1:44am [facility] [address] [place] [address] Discharge Summary Signed Patient: Pasty Cunningham MR#: [id number] : 1945 Acct:[id number] Age/Sex: 79 / M Adm Date: 4 Loc: Room: [address] [place] [address]: Mayda Matthews MD Copies to: MD Helen Ivy MD~ Providers Date of Discharge: 06/05/24 Discharging Provider: Mayda Matthews Primary Care Provider: Helen Heath Consults: 06/02/24 18:07 Consult to Nephrology Routine Comment: Consulting Provider: Domonique Rahman Has Provider Been Notified: Yes Date of Notification: 06/02/24 Time of Notification: 18:16 Reason for Consult: Acute Kidney Injury Consult to Occupational Therapy Routine Comment: Physician Instructions: Consult to OT for:: Evaluation and Treat Consult to Physical Therapy Routine Comment: Physician Instructions: Consult to PT for:: Evaluation and Treat 06/02/24 18:27 Consult to Urology Routine Comment: Consulting Provider: Orquidea Cortez Reason For Exam: left sided hydronephosis and hydroureter Has Provider Been Notified: Yes Date of Notification: 06/02/24 Time of Notification: 18:43 Discharge Diagnosis (1) RINA (acute kidney injury): (2) Hydronephrosis, left: (3) Hyperkalemia: (4) CKD (chronic kidney disease) stage 4, GFR 15-29 ml/min: (5) Hypertensive chronic kidney disease with stage 1 through stage 4 chronic kidney disease, or unspecified chronic kidney disease: (6) Anemia of renal disease: (7) Type 2 diabetes mellitus with diabetic chronic kidney disease: Final Diagnosis Final Discharge Diagnosis: RINA on CKD with electrolytes abnormalities BPH, underwent prostate biopsy 06/01/24, and stent exchange per history Hyponatremia resolved/hyperkalemia - resolved Left-sided hydronephrosis and hydroureter Left nephrolithiasis S/p cystoscopy 06/04/24 with left ureteral stent placement Summary Hospital Course Hospital course: Patient is a 79-year-old male with medical history as listed below presented to the ER due to abnormal labs. Patient states that he underwent prostate biopsy as outpatient as well as ureteral stent exchange done by urology as outpatient Dr. Cortez. Patient tolerated the procedure well with no immediate complications. He does have suprapubic catheter at baseline. Denies any issues with drainage from catheter. Denies fever, chills, nausea, vomiting. He does report feeling tired and unwell. He feels dehydrated since he was fasting for the procedure. He does follow with nephrology Dr. Brink as outpatient regarding his CKD. Patient also follows with oncologist Dr. Huddleston regarding his multiple myeloma and currently undergoing treatment. He was today for follow-up visit at oncology and underwent blood work which showed worsening kidney function and hyperkalemia with potassium 6.1. EKG showed normal sinus rhythm with no acute changes. BUN 48 and creatinine 3.47 which has progressed from before. Afebrilehere, no leukocytosis, hemoglobin appears stable. Patient does report some hematuria postprocedure which she thought was normal since he gets that after interventions. He does report there was blood clots coming out which has been cleared according to him. Hemodynamically stable at this time. Patient was given IV fluids in the ER as well as hyperkalemia cocktail with insulin/dextrose, Lokelma, calcium gluconate. Decision was made to admit him forfurther evaluation and management. Assessment and plan as listed below: RINA on CKD with electrolytes abnormalities BPH, underwent prostate biopsy 06/01/24, and stent exchange per history Hyponatremia resolved/hyperkalemia Left-sided hydronephrosis and hydroureter Left nephrolithiasis S/p cystoscopy 06/04/24 with left ureteral stent placement -Afebrile here, no leukocytosis -Has completed course of AB recently for UTI. However, UA seems positive for infection, with his recent procedure and current hydronephrosis and plan for another procedure, would cover him with AB based on previous cx. -Received IV Rocephin total 4 doses while here. -Urine cx growing jessica, likely colonized with no clinical significance at this time. No evidence of bacterial infection. -Avoid ACEI, ARB for now -Ordered CT AP wo contrast in ER. showed right sided double-J ureteral stent. Left-sided hydronephrosis and hydroureter without definitive obstructing stone or mass, UVJ stricture cannot be excluded -Optimized electrolytes to keep K>4, Mg>2, P>3 -K 6.1>5.0>5.8. Given additional Lokelma per nephro. K levels down to 4.3 today. -Kidney function improving after urological intervention. No further hemturia noted today. -Nephrology input appreciated. Advised to continue to hold losartan until kidneyrecovers, patient is currently normotensive as well. Advised to follow-up with nephrology as outpatient with repeat labs in 3 to 5 days to ensure stable kidneyfunction. -Urology consulted. Performed cystoscopy. left ureteral stent placed. Follow with urology as outpatient. DM -Continue insulin therapy, sliding scale -Continue home regimen, pt seems educated about his glucose checks at home and adjusts his insulin at home. -Continue to follow-up with PCP as outpatient As of today, patient hemodynamically stable, appears normotensive, continue to hold losartan, kidney function continues to improve slowly and gradually. No further hematuria noted. Patient feels well clinically. Potassium level down to 4.3. Patient denies any active complaints today and eager to go home. Patient has been cleared from nephrology standpoint for discharge. He completedcourse of antibiotics while here. Advised to follow-up with nephrology and urology as outpatient as well as his PCP. Discussed with patient at bedside, all questions answered, patient in agreement and comfortable with the plan. Condition Condition at Discharge: Stable Time Spent with Patient Time spent providing/coordinating discharge services (# min): 38 Surgeries and Procedures Operation Date: 06/04/24 08:10 <No data on this case meets the specified criteria> Operation Date: 06/04/24 08:00 Actual Procedures p OR Cysto/Retro/Stent/Stone - Orquidea Cortez MD Discharge Plan Discharge Plan Patient Disposition: Home Activity: Ambulate as Tolerated Diet: Carb Count Instructions: Know your Meds Prescriptions: Continued oxybutynin chloride 10 mg tablet extended release 24hr 10 mg PO BID Patient Comments: Patient list states 1 tab AM and PM - confirms the list is up to date 06/02/24 insulin lispro 100 unit/mL insulin pen 1 sliding scale dose subcut .with meals Patient Comments: 0-149 0 units 150-174 1 unit 175-199 2 units 200-224 3 units 225-249 4 units 250-274 5 units 275-299 6 units 300-324 7 units 325-349 8 units 350-374 9 units 375-399 10 units 400-424 11 units Aranesp (in polysorbate) 10 mcg/0.4 mL syringe 10 mcg IV .every other week PRN (Reason: Hemoglobin less than 10) Probiotic 10 billion cell capsule 10,000 mmu cells PO DAILY NewFlora 10 billion cell capsule 10,000 mmu cells PO DAILY atorvastatin 20 mg Tablet 20 mg PO QPM aspirin 81 mg Tablet,Delayed Release (Dr/Ec) 81 mg PO DAILY famotidine 20 mg Tablet 20 mg PO QPM insulin lispro [Humalog KwikPen Insulin] 100 unit/mL insulin pen 8 unit SUBCUT TID.AC Rx Instructions: per sliding scale instructions insulin glargine [Lantus Solostar U-100 Insulin] 100 unit/mL (3 mL) insulin pen 35 unit SUBCUT QHS Patient Comments: Patient states he uses about half a dose if his sugar is < 160 before bed musa full dose if his sugar is higher than that. He mane makes it up as he goes docusate sodium [Stool Softener] 100 mg capsule 100 mg PO QPM cholecalciferol (vitamin D3) 50 mcg (2,000 unit) capsule 50 mcg PO DAILY multivitamin [Daily Multi-Vitamin] Tablet 1 tab PO DAILY Gentle Iron 28 mg iron-60mg -400 mcg-8 mcg capsule 1 cap PO QPM nitrofurantoin macrocrystal 100 mg capsule 100 mg PO QHS PRN (Reason: infection) Rx Instructions: Take 1 capsule before cath change, the 1 capsule 12 hours after cath changed mecobalamin (vitamin B12) 1,000 mcg tablet,chewable 1,000 mcg PO DAILY Held losartan 25 mg tablet 25 mg PO DAILY Qty: 90 1RF Hold Instructions: Hold for now. follow with nephrology clinic to repeat blood and discuss if need to restart this medicine. Follow Up: Oqruidea Cortez MD [Active Staff] - (Office to call to schedule follow up this week ) Exam Physical Exam Vital Signs: Temp Pulse Resp BP Pulse Ox O2 Del Method O2 Flow Rate 98.2 F 64 18 123/71 99 Room Air 6 06/05/24 07:40 06/05/24 07:40 06/05/24 07:40 06/05/24 07:40 06/05/24 07:40 06/05/24 08:00 06/04/24 08:40 Narrative: Const General: cooperative HEENT Normal oropharyngeal mucosa without any ulcers or exudates Eyes: Conjunctiva normal Pulmonary Auscultation: clear to auscultation , no crackles, no wheezes Cardiovascular Rate: normal rate Rhythm: regular rhythm Heart Sounds: S1 normal, S2 normal and no murmurs GI Inspection: non-distended Palpation: soft, not firm and nontender. No rigidity or rebound. Suprapubic catheter in place, draining clear urine Neuro General: alert, awake and oriented x3. No obvious new focal deficit Musculoskeletal: normal range of motion Extrem General: no cyanosis, no pedal edema Psych Appearance: appropriate affect. Grossly normal. Pleasant Diagnostic Studies Completed and Pending Studies Pending studies at discharge: 06/04/24 04:17 ECG 12 lead ECG Stat Labs on day of discharge: 06/05/24 07:39: POC Glucose 117, POC Glucose Comment Glu2: cleaned meter 06/05/24 06:42: Corrected WBC 5.0, RBC 2.68 L, Hgb 9.4 L, Hct 27.9 L, MCV 104.3 H, MCH 35.2, MCHC 33.7, RDW 16.5 H, Plt Count 145 L, MPV 8.1, PHA Creatinine Clear 23.26, Sodium 139, Potassium 4.3, Chloride 109 H, Carbon Dioxide 23.3, Anion Gap 11.0, BUN 43 H, Creatinine 2.95 H, Est GFR (CKD-EPI) 20.903, Glucose 65 L, Calcium 8.5 L 06/05/24 06:14: POC Glucose 62, POC Glucose Comment Glu2: cleaned meter 06/04/24 21:20: POC Glucose 208, POC Glucose Comment Glu2: cleaned meter 06/04/24 16:42: POC Glucose 118 06/04/24 11:52: POC Glucose 179 Documented By: Mayda Matthews MD 06/05/24 11 38 Signed By: <Electronically signed by Mayda Matthews MD> 06/05/24 1144 [facility] Work Phone: 1(139) 444-919810-20-2024 Progress note Author Domonique Rahman [facility] June 05, 2024 9:35am Note Date/Time June 05, 2024 9 :35am [facility] [address] [place] [address] Nephrology Progress Note Signed Patient: Patsy Cunningham MR#: [id number] : 1945 Acct:[id number] Age/Sex: 79 / M Adm Date: 4 Loc: Room: [address] [place] [address] Type: ADM IN Attending Dr: Mayda Matthews MD Copies to: ~ Date of Service: 06/05/2024 Subjective Subjective Narrative: Mr. Cunningham is a 79-year-old male with a past medical history of chronic kidney disease stage IV, multiple myeloma, BPH with a suprapubic catheter in place, diabetes mellitus, hypertension, nephrolithiasis who was sent in by his oncologist Dr. Huddleston yesterday for concerns of worsening kidney function and hyperkalemia. The day prior the patient had a prostate biopsy, ureteral stent exchange, and suprapubic catheter replaced by Dr. Cortez. Currently the patient follows Dr. Crain for his chronic kidney disease and has baseline serum creatinine 2.2 to 2.5 mg/dL. The patient's also states that he had recently stopped antibiotics for a concern of a UTI. The patient states that hehas been in his normal health. He does state that he has been feeling more tired recently, secondary to not having as much sleep. Patient states that today he feels like his bladder is spasming. He has been making urine. In the emergency room the patient was given Lokelma, insulin/dextrose, and calcium gluconate. Patient was started on gentle fluid resuscitation with LR. Interim history He has an RINA and hyperkalemia due to the obstructive uropathy. He underwent the cystoscopy with left retrograde pyelogram and left ureteral stent placement by urology on 06/04/2024. Patient was seen examined bedside. He is feeling better denies any disruption cough nausea vomiting shortness breath. Exam Physical Exam Vital Signs: Temp Pulse Resp BP Pulse Ox O2 Del Method O2 Flow Rate 98.2 F 64 18 123/71 99 Room Air 6 06/05/24 07:40 06/05/24 07:40 06/05/24 07:40 06/05/24 07:40 06/05/24 07:40 06/05/24 08:00 06/04/24 08:40 Narrative: General: Appears comfortable and not in distress Heart: S1-S2, no rub Lung: Bilateral air entry, no wheezing or crackles Abdomen: Soft, positive bowel sounds Extremities: No edema, no cyanosis Head: Atraumatic, normocephalic Ear: No gross hearing Deficit or external ear redness Eyes: No pallor or redness Neck: No JVD or visible mass Skin: No rashes , warm to touch SIDE FRAMER: Awake,Alert, following simple command Musculoskeletal: No swelling or limitation of movement of the large joints Psychiatric: Cooperative, normal mood and affect Objective Intake and Output I&O: Intake & Output 06/02/24 06/03/24 06/04/24 06/05/24 23:59 23:59 23:59 23:59 Intake Total 1000 / 1000 700 / 700 1750 / 1750 450 / 450 Output Total 2125 / 2125 3200 / 3200 Balance 1000 / 1000 -1425 / -1425 -1450 / -1450 450 / 450 Weight 94.7 kg 94.6 kg 93.5 kg 93 kg Meds and Allergies Meds: Active Medications Acetaminophen (Acetaminophen 325 Mg Tablet) 650 mg PO Q6HR PRN PRN Reason: Pain Scale 1 - 3 or fever Stop: 06/02/25 18:06 Last Admin: 06/05/24 07:43 Dose: 650 mg Atorvastatin Calcium (Atorvastatin 20 Mg Tablet) 20 mg PO QPM [facility] Stop: 06/02/25 20:59 Last Admin: 06/04/24 21:21 Dose: 20 mg Docusate Sodium (Docusate 100 Mg Capsule) 100 mg PO BID PRN PRN Reason: Constipation Stop: 06/02/25 18:06 Heparin Sodium (Porcine) (Heparin 5,000 Unit/Ml Vial) 5,000 unit SUBCUT Q12HR [facility] Stop: 06/02/25 20:59 Last Admin: 06/05/24 08:02 Dose: Not Given Hydralazine HCl (Hydralazine 20 Mg/Ml Vial) 10 mg IV-PUSH Q4H PRN PRN Reason: if SBP > 185 Stop: 06/02/25 18:10 Hydromorphone HCl (Hydromorphone 0.5 Mg/0.5 Ml Syringe) 0.5 mg IV-PUSH Q4H PRN PRN Reason: Pain Scale 8 - 10 Hyoscyamine (Hyoscyamine Sulfate 0.125 Mg Tab.Rapdis) 0.125 mg PO Q6H PRN PRN Reason: Cramping Stop: 06/04/25 09:49 Ceftriaxone Sodium (Rocephin) 1 gm in 50 mls @ 100 mls/hr IV Q24H [facility] Last Admin: 06/04/24 09:43 Dose: 100 mls/hr Insulin Aspart (Insulin Aspart 300 Units/3 Ml Insuln.Pen) 8 units SUBCUT TID.ACSCH Stop: 06/03/25 07:29 Last Admin: 06/05/24 07:40 Dose: Not Given Insulin Glargine (Insulin Glargine 300 Units/3 Ml Insuln.Pen) 35 units SUBCUT QHS [facility] Stop: 06/02/25 21:59 Last Admin: 06/04/24 21:21 Dose: 35 units Lidocaine HCl (Lidocaine 1% 50 Ml Vial) 0.1 ml INTRADERMA PREOP PRN PRN Reason: Venipuncture x 1 Dose Oxybutynin Chloride (Oxybutynin Chloride 5 Mg Tab.Er.24) 10 mg PO BID [facility] Stop: 06/02/25 20:59 Last Admin: 06/05/24 08:02 Dose: Not Given Prochlorperazine Edisylate (Prochlorperazine Edisylate 10 Mg/2 Ml Vial) 5 mg IV- PUSH Q4H PRN PRN Reason: Nausea And Vomiting Stop: 06/02/25 18:06 Sennosides (Sennosides 8.6 Mg Tablet) 8.6 mg PO BID PRN PRN Reason: Constipation Stop: 06/02/25 18:06 Sodium Chloride (Sodium Chloride 0.9 % 10 Ml Syringe) 0 ml IV-PUSH PRN PRN PRN Reason: Flush Stop: 06/02/25 15:30 Sodium Chloride (Sodium Chloride 0.9 % 10 Ml Syringe) 0 ml IV-PUSH PRN PRN PRN Reason: Flush Stop: 06/04/25 04:16 Allergies gabapentin Allergy (Unknown, Verified 06/02/24 15:31) Rash lisinopril Allergy (Unknown, Verified 06/02/24 15:31) DRY COUGH mirabegron [From Myrbetriq] Adverse Reaction (Verified 06/02/24 15:31) Diarrhea Results - Nephrology Labs 06/05/24 06:42 06/05/24 06:42 Labs: 06/05/24 06:42 BUN 43 H Creatinine 2.95 H Radiology Impressions Impressions - last 24 hours: Any impression(s) listed above is documentation that was entered by the reading physician into a diagnostic report(s) for Patsy Cunningham. I have reviewed the report(s) and am incorporating any findings in the treatment plan of this patient where applicable. A&P - Nephrology Assessment/Plan (1) RINA (acute kidney injury): Assessment/Problem Details: Patient had an elevation in his creatinine to 3.47 from his baseline around 2.4. His creatinine has improved today from yesterday to 3.17. He has ATN either due to the intraoperative hemodynamic changes or obstruction. (2) Hydronephrosis, left: Assessment/Problem Details: He has a left-sided hydronephrosis urology has been following the patient. (3) Hyperkalemia: Assessment/Problem Details: Patient had hyperkalemia due to the RIAN on CKD and losartan (4) CKD (chronic kidney disease) stage 4, GFR 15-29 ml/min: Assessment/Problem Details: He has a longstanding CKD due to the DM and HTN with baseline serum creatinine around 2.2 to 2.5 mg/dL. (5) Hypertensive chronic kidney disease with stage 1 through stage 4 chronic kidney disease, or unspecified chronic kidney disease: Assessment/Problem Details: The patient has had stable blood pressures during this admission and was on losartan (6) Anemia of renal disease: Assessment/Problem Details: Patient's hemoglobin has been stable on Aranesp (7) Type 2 diabetes mellitus with diabetic chronic kidney disease: Assessment/Problem Details: He has insulin-dependent type 2 diabetes mellitus. He takes insulin and glargine at home. Plan * Continue to hold home dose of the losartan upon discharge * Continue DM management as per the primary hospitalist team. The goal blood sugars between 100 to 150 mg/dL * Continue management of the obstructive uropathy as per urology. * His urine culture from suprapubic catheter catheter showed Jessica albicans 50K colonies. Patient is currently on ceftriaxone which can be discontinued as there is no bacterial infection. * Check renal function 3 to 5 days after discharge. * Patient can be discharged from renal standpoint. * Outpatient follow-up with Dr. Crain as scheduled. Documented By: Domonique Rahman MD 06/05/24 0930 Signed By: <Electronically signed by Domonique Rahman MD> 06/05/24 0975 [facility] Work Phone: 1(891) 137-915610-19-2024 Progress note Author Mayda Matthews [facility] June 04, 2024 1:51pm Note Date/Time June 04, 2024 1 :51pm [facility] [address] [place] [address] Hospitalist Progress Note Signed Patient: Patsy Cunningham MR#: [id number] : 1945 Acct:[id number] Age/Sex: 79 / M Adm Date: 4 Loc: Room: [address] [place] [address] Type: ADM IN Attending Dr: Mayda Matthews MD Copies to: ~ Date of Service: 06/04/2024 Subjective Subjective Narrative: Patient was seen and evaluated at bedside. Remained afebrile here, no leukocytosis, H&H stable. Yesterday cystoscopy was canceled due to hyperkalemiapatient was given again, Hyperkalemia cocktail with D5/insulin, bicarb, calcium gluconate, and asked with Jennifer Man with improvement in K4.8 then 5.1 this morning. kidney function still 3.13 Cr and BUN 41. Underwent cystoscopy earlier this am by urology. He feels better afterwards, tolerating oral diet, mild hematuria noted in suprapubic cath and bag. Exam Physical Exam Vital Signs: Temp Pulse Resp BP Pulse Ox O2 Del Method O2 Flow Rate 97.8 F 71 16 116/65 97 Room Air 6 06/04/24 12:00 06/04/24 12:00 06/04/24 12:00 06/04/24 12:00 06/04/24 12:00 06/04/24 12:00 06/04/24 08:40 Narrative: Const General: cooperative HEENT Normal oropharyngeal mucosa without any ulcers or exudates Eyes: Conjunctiva normal Pulmonary Auscultation: clear to auscultation , no crackles, no wheezes Cardiovascular Rate: normal rate Rhythm: regular rhythm Heart Sounds: S1 normal, S2 normal and no murmurs GI Inspection: non-distended Palpation: soft, not firm and nontender. No rigidity or rebound. Suprapubic catheter in place, draining mild hematuria Neuro General: alert, awake and oriented x3. No obvious new focal deficit Musculoskeletal: normal range of motion Extrem General: no cyanosis, no pedal edema Psych Appearance: appropriate affect. Grossly normal. Pleasant Objective Lab Results 06/04/24 05:16 06/04/24 05:16 Microbiology Results Microbiology 06/02/24 19:56 Urine - Suprapubic Urine Culture - Preliminary Jessica albicans Meds Allergies and Active Meds Allergies gabapentin Allergy (Unknown, Verified 06/02/24 15:31) Rash lisinopril Allergy (Unknown, Verified 06/02/24 15:31) DRY COUGH mirabegron [From Myrbetriq] Adverse Reaction (Verified 06/02/24 15:31) Diarrhea Active Meds: Active Medications Generic Name Dose Route Start Last Admin Trade Name Freq PRN Reason Stop Dose Admin Acetaminophen 650 mg 06/02/24 18:07 06/04/24 09:11 Acetaminophen 325 Mg Tablet PO 06/02/25 18:06 650 mg Q6HR PRN Administration Pain Scale 1 - 3 or fever Atorvastatin Calcium 20 mg 06/02/24 21:00 06/03/24 20:00 Atorvastatin 20 Mg Tablet PO 06/02/25 20:59 20 mg QPM EMMA Administration Docusate Sodium 100 mg 06/02/24 18:07 Docusate 100 Mg Capsule PO 06/02/25 18:06 BID PRN Constipation Heparin Sodium (Porcine) 5,000 unit 06/02/24 21:00 06/04/24 09:42 Heparin 5,000 Unit/Ml Vial SUBCUT 06/02/25 20:59 Not Given Q12HR EMMA Hydralazine HCl 10 mg 06/02/24 18:11 Hydralazine 20 Mg/Ml Vial IV-PUSH 06/02/25 18:10 Q4H PRN if SBP > 185 Hydromorphone HCl 0.5 mg 06/02/24 18:07 Hydromorphone 0.5 Mg/0.5 Ml Syringe IV-PUSH Q4H PRN Pain Scale 8 - 10 Hyoscyamine 0.125 mg 06/04/24 09:50 Hyoscyamine Sulfate 0.125 Mg Tab.Rapdis PO 06/04/25 09:49 Q6H PRN Cramping Ceftriaxone Sodium 1 gm in 50 mls @ 100 mls/hr 06/03/24 10:30 06/04/24 09:43 Rocephin IV 100 mls/hr Q24H EMMA Administration Insulin Aspart 8 units 06/03/24 07:30 06/04/24 12:27 Insulin Aspart 300 Units/3 Ml Insuln.Pen SUBCUT 06/03/25 07:29 8 units TID.AC EMMA Administration Insulin Glargine 35 units 06/02/24 22:00 06/03/24 20:09 Insulin Glargine 300 Units/3 Ml Insuln.Pen SUBCUT 06/02/25 21:59 35 units QHS EMMA Administration Lidocaine HCl 0.1 ml 06/04/24 04:17 Lidocaine 1% 50 Ml Vial INTRADERMA PREOP PRN Venipuncture x 1 Dose Oxybutynin Chloride 10 mg 06/02/24 21:00 06/04/24 09:13 Oxybutynin Chloride 5 Mg Tab.Er.24 PO 06/02/25 20:59 10 mg BID EMMA Administration Prochlorperazine Edisylate 5 mg 06/02/24 18:07 Prochlorperazine Edisylate 10 Mg/2 Ml Vial IV-PUSH 06/02/25 18:06 Q4H PRN Nausea And Vomiting Sennosides 8.6 mg 06/02/24 18:07 Sennosides 8.6 Mg Tablet PO 06/02/25 18:06 BID PRN Constipation Sodium Chloride 0 ml 06/02/24 15:31 Sodium Chloride 0.9 % 10 Ml Syringe IV-PUSH 06/02/25 15:30 PRN PRN Flush Sodium Chloride 0 ml 06/04/24 04:17 Sodium Chloride 0.9 % 10 Ml Syringe IV-PUSH 06/04/25 04:16 PRN PRN Flush A&P - Hospitalist Assessment/Plan (1) Acute kidney injury superimposed on CKD: (2) Hyperkalemia: (3) Hydronephrosis, left: Plan RINA on CKD with electrolytes abnormalities BPH, underwent prostate biopsy 06/01/24, and stent exchange per history Hyponatremia resolved/hyperkalemia Left-sided hydronephrosis and hydroureter Left nephrolithiasis S/p cystoscopy 06/04/24 with left ureteral stent placement -Afebrile here, no leukocytosis -Has completed course of AB recently for UTI. However, UA seems positive for infection, with his recent procedure and current hydronephrosis and plan for another procedure, would cover him with AB based on previous cx. -Continue IV Rocephin. -Urine cx growing jessica, likely colonized with no clinical significance at this time. -Avoid ACEI, ARB for now -Ordered CT AP wo contrast in ER. showed right sided double-J ureteral stent. Left-sided hydronephrosis and hydroureter without definitive obstructing stone or mass, UVJ stricture cannot be excluded -Optimized electrolytes to keep K>4, Mg>2, P>3 -Avoid nephrotoxic medications -K 6.1>5.0>5.8. Given additional Lokelma per nephro. Monitor K. -Kidney function slightly improved but not yet back to baseline -Nephrology input appreciated. -Urology consulted. Performed cystoscopy. left ureteral stent placed. DM -Continue insulin therapy, sliding scale Home medications reviewed and resumed as appropriate Diet: carb consistent DVT ppx: heparin Code status: Full Status: inpatient Discussed with patient and and son at bedside. All questions answered. In agreement with the above plan If kidney function improves by tomorrow am, planning discharge in am Mayda Wilkes MD Internal Medicine Hospitalist Attending Physician Documented By: Mayda Matthews MD 06/04/24 13 46 Signed By: <Electronically signed by Mayda Matthews MD> 06/04/24 0779 [facility] Work Phone: 1(500) 869-727110-19-2024 Progress note Author Domonique Rahman [facility] June 04, 2024 12:16pm Note Date/Time June 04, 2024 1 2:16pm [facility] [address] [place] [address] Nephrology Progress Note Signed Patient: Patsy Cunningham MR#: [id number] : 1945 Acct:[id number] Age/Sex: 79 / M Adm Date: 4 Loc: Room: [address] [place] [address] Type: ADM IN Attending Dr: Mayda Matthews MD Copies to: ~ Date of Service: 06/04/2024 Subjective Subjective Narrative: Mr. Cunningham is a 79-year-old male with a past medical history of chronic kidney disease stage IV, multiple myeloma, BPH with a suprapubic catheter in place, diabetes mellitus, hypertension, nephrolithiasis who was sent in by his oncologist Dr. Huddleston yesterday for concerns of worsening kidney function and hyperkalemia. The day prior the patient had a prostate biopsy, ureteral stent exchange, and suprapubic catheter replaced by Dr. Cortez. Currently the patient follows Dr. Crain for his chronic kidney disease and has baseline serum creatinine 2.2 to 2.5 mg/dL. The patient's also states that he had recently stopped antibiotics for a concern of a UTI. The patient states that hehas been in his normal health. He does state that he has been feeling more tired recently, secondary to not having as much sleep. Patient states that today he feels like his bladder is spasming. He has been making urine. In the emergency room the patient was given Lokelma, insulin/dextrose, and calcium gluconate. Patient was started on gentle fluid resuscitation with LR. Interim history Patient was seen examined bedside. He underwent the cystoscopy with left retrograde pyelogram and left ureteral stent placement by urology this morning. He has been better denies any disruption cough nausea vomiting shortness breath. Exam Physical Exam Vital Signs: Temp Pulse Resp BP Pulse Ox O2 Del Method O2 Flow Rate 97.8 F 71 16 116/65 97 Room Air 6 06/04/24 12:00 06/04/24 12:00 06/04/24 12:00 06/04/24 12:00 06/04/24 12:00 06/04/24 12:00 06/04/24 08:40 Narrative: General: Appears comfortable and not in distress Heart: S1-S2, no rub Lung: Bilateral air entry, no wheezing or crackles Abdomen: Soft, positive bowel sounds Extremities: No edema, no cyanosis Head: Atraumatic, normocephalic Ear: No gross hearing Deficit or external ear redness Eyes: No pallor or redness Neck: No JVD or visible mass Skin: No rashes , warm to touch SIDE FRAMER: Awake,Alert, following simple command Musculoskeletal: No swelling or limitation of movement of the large joints Psychiatric: Cooperative, normal mood and affect Objective Intake and Output I&O: Intake & Output 06/01/24 06/02/24 06/03/24 06/04/24 23:59 23:59 23:59 23:59 Intake Total 1000 / 1000 700 / 700 1000 / 1000 Output Total 2125 / 2125 3200 / 3200 Balance 1000 / 1000 -1425 / -1425 -2200 / -2200 Weight 94.7 kg 94.6 kg 93.5 kg Meds and Allergies Meds: Active Medications Acetaminophen (Acetaminophen 325 Mg Tablet) 650 mg PO Q6HR PRN PRN Reason: Pain Scale 1 - 3 or fever Stop: 06/02/25 18:06 Last Admin: 06/04/24 09:11 Dose: 650 mg Atorvastatin Calcium (Atorvastatin 20 Mg Tablet) 20 mg PO QPM [facility] Stop: 06/02/25 20:59 Last Admin: 06/03/24 20:00 Dose: 20 mg Docusate Sodium (Docusate 100 Mg Capsule) 100 mg PO BID PRN PRN Reason: Constipation Stop: 06/02/25 18:06 Heparin Sodium (Porcine) (Heparin 5,000 Unit/Ml Vial) 5,000 unit SUBCUT Q12HR [facility] Stop: 06/02/25 20:59 Last Admin: 06/04/24 09:42 Dose: Not Given Hydralazine HCl (Hydralazine 20 Mg/Ml Vial) 10 mg IV-PUSH Q4H PRN PRN Reason: if SBP > 185 Stop: 06/02/25 18:10 Hydromorphone HCl (Hydromorphone 0.5 Mg/0.5 Ml Syringe) 0.5 mg IV-PUSH Q4H PRN PRN Reason: Pain Scale 8 - 10 Hyoscyamine (Hyoscyamine Sulfate 0.125 Mg Tab.Rapdis) 0.125 mg PO Q6H PRN PRN Reason: Cramping Stop: 06/04/25 09:49 Ceftriaxone Sodium (Rocephin) 1 gm in 50 mls @ 100 mls/hr IV Q24H [facility] Last Admin: 06/04/24 09:43 Dose: 100 mls/hr Insulin Aspart (Insulin Aspart 300 Units/3 Ml Insuln.Pen) 8 units SUBCUT TID.ACSCH Stop: 06/03/25 07:29 Last Admin: 06/04/24 09:41 Dose: Not Given Insulin Glargine (Insulin Glargine 300 Units/3 Ml Insuln.Pen) 35 units SUBCUT QHS [facility] Stop: 06/02/25 21:59 Last Admin: 06/03/24 20:09 Dose: 35 units Lidocaine HCl (Lidocaine 1% 50 Ml Vial) 0.1 ml INTRADERMA PREOP PRN PRN Reason: Venipuncture x 1 Dose Oxybutynin Chloride (Oxybutynin Chloride 5 Mg Tab.Er.24) 10 mg PO BID EMMA Stop: 06/02/25 20:59 Last Admin: 06/04/24 09:13 Dose: 10 mg Prochlorperazine Edisylate (Prochlorperazine Edisylate 10 Mg/2 Ml Vial) 5 mg IV- PUSH Q4H PRN PRN Reason: Nausea And Vomiting Stop: 06/02/25 18:06 Sennosides (Sennosides 8.6 Mg Tablet) 8.6 mg PO BID PRN PRN Reason: Constipation Stop: 06/02/25 18:06 Sodium Chloride (Sodium Chloride 0.9 % 10 Ml Syringe) 0 ml IV-PUSH PRN PRN PRN Reason: Flush Stop: 06/02/25 15:30 Sodium Chloride (Sodium Chloride 0.9 % 10 Ml Syringe) 0 ml IV-PUSH PRN PRN PRN Reason: Flush Stop: 06/04/25 04:16 Allergies gabapentin Allergy (Unknown, Verified 06/02/24 15:31) Rash lisinopril Allergy (Unknown, Verified 06/02/24 15:31) DRY COUGH mirabegron [From Myrbetriq] Adverse Reaction (Verified 06/02/24 15:31) Diarrhea Results - Nephrology Labs 06/04/24 05:16 06/04/24 05:16 Labs: 06/03/24 06/04/24 23:06 05:16 BUN 43 H 41 H Creatinine 3.07 H 3.13 H Radiology Impressions Impressions - last 24 hours: Any impression(s) listed above is documentation that was entered by the reading physician into a diagnostic report(s) for Patsy Cunningham. I have reviewed the report(s) and am incorporating any findings in the treatment plan of this patient where applicable. A&P - Nephrology Assessment/Plan (1) RINA (acute kidney injury): Assessment/Problem Details: Patient had an elevation in his creatinine to 3.47 from his baseline around 2.4. His creatinine has improved today from yesterday to 3.17. He has ATN either due to the intraoperative hemodynamic changes or obstruction. (2) Hydronephrosis, left: Assessment/Problem Details: He has a left-sided hydronephrosis urology has been following the patient. (3) Hyperkalemia: Assessment/Problem Details: Patient had hyperkalemia due to the RINA on CKD and losartan (4) CKD (chronic kidney disease) stage 4, GFR 15-29 ml/min: Assessment/Problem Details: He has a longstanding CKD due to the DM and HTN with baseline serum creatinine around 2.2 to 2.5 mg/dL. (5) Hypertensive chronic kidney disease with stage 1 through stage 4 chronic kidney disease, or unspecified chronic kidney disease: Assessment/Problem Details: The patient has had stable blood pressures during this admission and was on losartan (6) Anemia of renal disease: Assessment/Problem Details: Patient's hemoglobin has been stable on Aranesp (7) Type 2 diabetes mellitus with diabetic chronic kidney disease: Assessment/Problem Details: He has insulin-dependent type 2 diabetes mellitus. He takes insulin and glargine at home. Plan * Continue to hold home dose of the losartan * Continue DM management as per the primary hospitalist team. The goal blood sugars between 100 to 150 mg/dL * Continue management of the obstructive uropathy as per urology. * Check renal function daily and monitor input and output. Documented By: Domonique Rahman MD 06/04/24 1213 Signed By: <Electronically signed by Domonique Rahman MD> 06/04/24 1216 [facility] Work Phone: 1(712) 866-983010-18-2024 Consult note Author Orquidea Cortez [facility] June 03, 2024 5:31pm Note Date/Time June 03, 2024 3 :25pm [facility] [address] [place] [address] Urology Consult Note Signed Patient: Patsy Cunningham MR#: [id number] : 1945 Acct:[id number] Age/Sex: 79 / M Adm Date: 4 Loc: Room: [address] [place] [address] Type: ADM IN Attending Dr: Mayda Matthews MD Copies to: MD Mayda Heller MD Richard R Keller, MD~ History of Present Illness Consult Details Consult Date: 06/03/2024 Requesting Provider: Mayda Matthews MD HPI: 79-year-old male with history of multiple myeloma, prostate cancer on active surveillance, CKD, 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 Workup in the ER revealed Cr 3.5 frombaseline 2.3-2.8. CT AP wo contrast showed indwelling right stent and SPT in appropriate position, moderate left hydroureteronephrosis. Urology consulted forfurther evaluation. Pt is known to me for the above. He underwent routine R stent exchange, SPT exchange and transperineal confirmatory prostate biopsy under anesthesia 2 days ago, 06/01/24. Urine output has been normal. Denies fever, chills, n/v, flank orbladder pain. Feels a little weak. Cr 3.17 this AM after some hydration. However he had L pelviectasis on US a fewmonths ago, appears to be worsening despite bond decompression. Review of Systems Review of Systems Review of systems: General: denies fever, chills, + tired Skin: denies rash or jaundice HEENT: denies epistaxis or oral lesion Neurological: denies weakness or sensory change Respiratory: denies dyspnea or shortness of breath Cardiac: denies chest pain or palpitations Gastrointestinal: denies nausea, emesis, diarrhea Urinary: denies dysuria or hematuria, see HPI Musculoskeletal: denies muscle or back pain Psychiatric: denies mood or affect disorder Hematologic: denies easy bleeding or bruising [facility] Medical History Suprapubic catheter BPH (benign prostatic hyperplasia) Sepsis Multiple myeloma Apnea Skin cancer Arthritis Kidney stones Diabetes mellitus, type 2 Hyperlipidemia Hypertension Surgical History S/P TURP Family History Sister Myocardial infarction Mother Myocardial infarction Father Skin cancer Brother Hypertension Legacy FamHx Relation: Brother(s) Diabetes Legacy FamHx Relation: Brother(s) Father Cancer Legacy FamHx Problem: Diagnosed with Cancer Family/Other Legacy FamHx Problem: 1 SISTER KIDNEY STONES, SEPSIS Mother History of stroke Legacy FamHx Problem: Diagnosed with Stroke Social History Smoking Status: Former smoker Tobacco Type: cigarettes Substance Use Type: None Meds Medications and Allergies Allergies gabapentin Allergy (Unknown, Verified 06/02/24 15:31) Rash lisinopril Allergy (Unknown, Verified 06/02/24 15:31) DRY COUGH mirabegron [From Myrbetriq] Adverse Reaction (Verified 06/02/24 15:31) Diarrhea Home Medications atorvastatin 20 mg tablet 20 mg PO QPM 10/15/20 [History Confirmed 06/02/24] aspirin 81 mg tablet,delayed release 81 mg PO DAILY 11/26/20 [History Confirmed 06/02/24] famotidine 20 mg tablet 20 mg PO QPM 09/03/22 [History Confirmed 06/02/24] cholecalciferol (vitamin D3) 50 mcg (2,000 unit) capsule 50 mcg PO DAILY 10/26/23 [History Confirmed 06/02/24] docusate sodium 100 mg capsule (Stool Softener) 100 mg PO QPM 10/26/23 [History Confirmed 06/02/24] insulin lispro 100 unit/mL subcutaneous pen (Humalog KwikPen (U-100) Insulin) 8 unit subcut TID.AC 10/26/23 [History Confirmed 06/02/24] iron bis glycinate lashon 28 mg iron-vit C 60 mg-FA 400 mcg-B12 8mcg cap (Gentle Iron) 1 cap PO QPM 10/26/23 [History Confirmed 06/02/24] multivitamin (Daily Multi-Vitamin tablet) 1 tab PO DAILY 10/26/23 [History Confirmed 06/02/24] nitrofurantoin macrocrystal 100 mg capsule 100 mg PO QHS PRN infection 10/26/23 [History Confirmed 06/02/24] insulin glargine 100 unit/mL (3 mL) subcutaneous pen (Lantus Solostar U-100 Insulin) 35 unit subcut QHS 03/08/24 [History Confirmed 06/02/24] losartan 25 mg tablet 25 mg PO DAILY #90 tabs 03/08/24 [Rx Confirmed 06/02/24] mecobalamin (vitamin B12) 1,000 mcg chewable tablet 1,000 mcg PO DAILY 03/08/24 [History Confirmed 06/02/24] Lactobacillus acidophilus 10 billion cell capsule (NewFlora) 10,000 mmu cells PODAILY 06/02/24 [History Confirmed 06/02/24] Lactobacillus acidophilus 10 billion cell capsule (Probiotic) 10,000 mmu cells PO DAILY 06/02/24 [History Confirmed 06/02/24] darbepoetin raymond in polysorbat 10 mcg/0.4 mL in polysorbate injection syringe (Aranesp) 10 mcg IV .every other week PRN Hemoglobin less than 10 06/02/24 [History Confirmed 06/02/24] insulin lispro 100 unit/mL subcutaneous pen 1 sliding scale dose subcut .with meals 06/02/24 [History Confirmed 06/02/24] oxybutynin chloride 10 mg tablet,extended release 24 hr 10 mg PO BID 06/02/24 [History Confirmed 06/02/24] Exam Physical Exam Vital Signs: Temp Pulse Resp BP Pulse Ox O2 Del Method 97.6 F 62 16 137/64 99 Room Air 06/03/24 11:40 06/03/24 11:40 06/03/24 11:40 06/03/24 11:40 06/03/24 11:40 06/03/24 11:40 Narrative: General: The patient appears nontoxic. Resting comfortably in bed Skin: Warm, dry. No gross lesions are identified. HEENT: Normocephalic, atraumatic. Oral mucosa moist. Respiratory: No increased respiratory effort. On room air Cardiac: Regular rate and rhythm GI: Abdomen is soft, nontender, nondistended : The bladder is nonpalpable. There is no CVA tenderness bilaterally. SPT to gravity, CYU Musculoskeletal: Moves all extremities, normal strength Neurologic: Awake, alert, oriented Psychiatric: Affect normal to clinical condition Results - Urology Labs 06/03/24 05:58 06/03/24 15:25 Labs: Laboratory Results - Last 48 hrs. 06/03/24 12:07: POC Glucose 81 06/03/24 09:53: POC Glucose 100 06/03/24 06:38: POC Glucose 77 06/03/24 05:58: Corrected WBC 5.5, Uncorrected WBC Count 5.5, RBC 2.60 L, Hgb 9.2 L, Hct 27.4 L, MCV 105.4 H, MCH 35.5 H, MCHC 33.7, RDW 16.4 H, Plt Count 138L, MPV 8.0, Neut % (Auto) 69.0, Lymph % (Auto) 15.6, [place] % (Auto) 7.5, Eos % (Auto) 7.7, Baso % (Auto) 0.2, Nucleat RBC Rel Count 0.1, Neut # (Auto) 3.8, Lymph # (Auto) 0.9 L, [place] # (Auto) 0.4, Eos # (Auto) 0.4, Baso # (Auto) 0.0, PT13.0 H, INR 1.1, APTT 30.2, PHA Creatinine Clear 21.82, Sodium 137, Potassium 5.8 H, Chloride 110 H, Carbon Dioxide 21.0, Anion Gap 11.8, BUN 42 H, Creatinine3.17 H, Est GFR (CKD-EPI) 19.175, Glucose 66 L, Calcium 8.5 L, Magnesium 2.0, Total Bilirubin 0.3, AST 16, ALT 7, Alkaline Phosphatase 86, Total Protein 5.8 L, Albumin 3.2 L, Globulin 2.6, Albumin/Globulin Ratio 1.2 06/02/24 21:46: POC Glucose 134 06/02/24 21:22: PHA Creatinine Clear 21.23, Sodium 136, Potassium 5.0, Chloride 108 H, Carbon Dioxide 22.0, Anion Gap 11.0, BUN 44 H, Creatinine 3.26 H, Est GFR(CKD-EPI) 18.542, Glucose 116 H, Calcium 8.8 06/02/24 19:56: Urine Color Light-yellow, Urine Appearance Cloudy A, Urine pH 6.0, Ur Specific [place] 1.013, Urine Protein 70 H, Urine Glucose (UA) 100 H, Urine Ketones Negative, Urine Occult Blood 2+ H, Urine Nitrite Negative, Urine Bilirubin Negative, Urine Urobilinogen Normal, Ur Leukocyte Esterase 4+ H, UrineRBC 50-100 H, Urine WBC Innumerable H, Urine WBC Clumps Many H, Ur Squamous Epith Cells N/A, Other Crystals 1+, Urine Bacteria 1+ H, Hyaline Casts None, Other Casts 5-9 H, Urine Mucus Rare, Urine Yeast (Budding) 2+ H 06/02/24 15:58: PHA Creatinine Clear 19.50, Sodium 133 L, Potassium 6.1 H*, Chloride 107, Carbon Dioxide 20.3 L, Anion Gap 11.8, BUN 48 H, Creatinine 3.47 H, Est GFR (CKD-EPI) 17.203, Glucose 114 H, Calcium 9.3 Microbiology Microbiology: 06/02/24 19:56 Urine - Suprapubic Urine Culture - Pending Imaging CT scan - abdomen: report reviewed and image reviewed CT scan - pelvis: report reviewed and image reviewed Additional studies: CT ABDOMEN AND PELVIS WITHOUT INTRAVENOUS CONTRAST: CLINICAL HISTORY: Acute kidney injury, recent prostate biopsy. COMPARISON: None TECHNIQUE: Spiral images were obtained through the abdomen and pelvis without intravenous contrast. This CT exam was performed using one or more following dose reduction techniques: Automated exposure control, adjustment of the mA and/or kV according to patient size, or use of iterative reconstruction technique. FINDINGS: Lung Bases: [Bibasilar scarring.] Organs:Suboptimal evaluation due to lack of IV contrast. Cholelithiasis. Liverand splenic granulomas. No CBD dilatation. Pancreas and adrenal glands appear unremarkable. Right-sided double-J ureteral stent is noted. No stone is seen along the course of the stent. Left nephrolithiasis, largest stone measuring 4 mm. Left-sided hydronephrosis and hydroureter without obstructing stone or definite mass. Abdominal aorta appears normal in caliber. GI: Stomach is grossly unremarkable. Small bowel appears nondilated. Appendix is normal. Left colon diverticulosis.[ Pelvis:[Suprapubic catheter is noted. Prostate gland normal in size.] Peritoneum/Retroperitoneum:No free air or free fluid or lymphadenopathy.[ Abd wall/Bones:Abdominal wall demonstrate no acute findings. Osseous structures demonstrate degenerative change.[ CT/CT abdomen pelvis wo con IMPRESSION: No acute intra-abdominal process is seen. Right-sided double-J ureteral stent is noted. No stone is seen along the course of the stent. Cholelithiasis. Left-sided hydronephrosis and hydroureter without definitive obstructing stone or mass. UVJ stricture cannot BE excluded. Left nephrolithiasis. Assessment/Plan (1) Hydronephrosis, left: Code(s): N13.30 - Unspecified hydronephrosis (2) Acute kidney injury superimposed on CKD: Code(s): N17.9 - Acute kidney failure, unspecified; N18.9 - Chronic kidney disease, unspecified (3) CKD (chronic kidney disease) stage 4, GFR 15-29 ml/min: Code(s): N18.4 - Chronic kidney disease, stage 4 (severe) (4) Chronic suprapubic catheter: Code(s): Z93.59 - Other cystostomy status (5) Noncompliant bladder: Code(s): N31.9 - Neuromuscular dysfunction of bladder, unspecified Plan 79-year-old male with history of multiple myeloma, prostate cancer on active surveillance, CKD, 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 Pt unfortunately has complex urologic history, declined definitive urinary diversion due to very small, contracted, non-compliant bladder. Instead is managed with routine R stent exchange, SPT exchange every 4 months. History of L VUR seen during R RPG for exchanges in the past due to very small bladder, however hydronephrosis is new over the past few months. After discussion of risks/benefits of management options, pt elects to proceed with cystoscopy, L RPG, L stent placement for maximal decompression. Risks were discussed including but not limited to bleeding, pain, infection, damage to surrounding structures, inability to place a stent and need for additional procedures. Pt understands if a stent is placed it is not permanent and needs to be removed or exchanged within 3 months to prevent encrustation, infection, permanent renal damage, and/or potential need for more invasive surgeries. 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 Currently, pt declines these choices, and opts for continued SPT exchange q3w and now BL ureteral stent placement every 4-5 months. Risks of cumulative anesthesia discussed -Unable to proceed to OR now for cystoscopy, L RPG, L stent placement due to elevated K. -Spoke to hospitalist and Dr. Rahman with nephrology, K needs to be corrected prior to OR tmrw 8 AM or else cannot proceed with procedure and will be cancelled again. -ok for diet, NPO @ [place] Documented By: Orquidea Cortez MD 06/03/24 1520 Signed By: <Electronically signed by Orquidea Cortez MD> 06/03/24 173 [facility] Work Phone: 1(425) 466-970510-18-2024 Progress note Author Mayda Matthews [facility] June 03, 2024 2:38pm Note Date/Time June 03, 2024 2 :33pm [facility] [address] [place] [address] Hospitalist Progress Note Signed Patient: Patsy Cunningham MR#: [id number] : 1945 Acct:[id number] Age/Sex: 79 / M Adm Date: 4 Loc: Room: [address] [place] [address] Type: ADM IN Attending Dr: Mayda Matthews MD Copies to: ~ Date of Service: 06/03/2024 Subjective Subjective Narrative: Patient was seen and evaluated at bedside. Remained afebrile here, no leukocytosis, H&H stable. Potassium level from 6.1 to 5.0 and then 5.8 this morning, kidney function slightly improving but not yet to his baseline. Patient denies nausea or vomiting or diarrhea. Patient was maintained n.p.o. asper urology request for possible intervention today. Exam Physical Exam Vital Signs: Temp Pulse Resp BP Pulse Ox O2 Del Method 97.6 F 62 16 137/64 99 Room Air 06/03/24 11:40 06/03/24 11:40 06/03/24 11:40 06/03/24 11:40 06/03/24 11:40 06/03/24 11:40 Narrative: Const General: cooperative HEENT Normal oropharyngeal mucosa without any ulcers or exudates Eyes: Conjunctiva normal Pulmonary Auscultation: clear to auscultation , no crackles, no wheezes Cardiovascular Rate: normal rate Rhythm: regular rhythm Heart Sounds: S1 normal, S2 normal and no murmurs GI Inspection: non-distended Palpation: soft, not firm and nontender. No rigidity or rebound. Suprapubic catheter in place, draining clear urine, no hematuria Neuro General: alert, awake and oriented x3. No obvious new focal deficit Musculoskeletal: normal range of motion Extrem General: no cyanosis, no pedal edema Psych Appearance: appropriate affect. Grossly normal Objective Lab Results 06/03/24 05:58 06/03/24 05:58 Meds Allergies and Active Meds Allergies gabapentin Allergy (Unknown, Verified 06/02/24 15:31) Rash lisinopril Allergy (Unknown, Verified 06/02/24 15:31) DRY COUGH mirabegron [From Myrbetriq] Adverse Reaction (Verified 06/02/24 15:31) Diarrhea Active Meds: Active Medications Generic Name Dose Route Start Last Admin Trade Name Babatundeq PRN Reason Stop Dose Admin Acetaminophen 650 mg 06/02/24 18:07 06/03/24 00:51 Acetaminophen 325 Mg Tablet PO 06/02/25 18:06 650 mg Q6HR PRN Administration Pain Scale 1 - 3 or fever Atorvastatin Calcium 20 mg 06/02/24 21:00 06/02/24 21:38 Atorvastatin 20 Mg Tablet PO 06/02/25 20:59 20 mg QPM EMMA Administration Docusate Sodium 100 mg 06/02/24 18:07 Docusate 100 Mg Capsule PO 06/02/25 18:06 BID PRN Constipation Heparin Sodium (Porcine) 5,000 unit 06/02/24 21:00 06/03/24 09:18 Heparin 5,000 Unit/Ml Vial SUBCUT 06/02/25 20:59 5,000 unit Q12HR EMMA Administration Hydralazine HCl 10 mg 06/02/24 18:11 Hydralazine 20 Mg/Ml Vial IV-PUSH 06/02/25 18:10 Q4H PRN if SBP > 185 Hydromorphone HCl 0.5 mg 06/02/24 18:07 Hydromorphone 0.5 Mg/0.5 Ml Syringe IV-PUSH Q4H PRN Pain Scale 8 - 10 Ceftriaxone Sodium 1 gm in 50 mls @ 100 mls/hr 06/03/24 10:30 06/03/24 11:41 Rocephin IV 100 mls/hr Q24H EMMA Administration Levofloxacin 500 mg in 100 mls @ 100 mls/hr 06/03/24 16:15 Levaquin IV 06/03/24 17:14 ONCE ONE Insulin Aspart 8 units 06/03/24 07:30 06/03/24 11:41 Insulin Aspart 300 Units/3 Ml Insuln.Pen SUBCUT 06/03/25 07:29 Not Given TID.[facility] Insulin Glargine 35 units 06/02/24 22:00 06/02/24 21:40 Insulin Glargine 300 Units/3 Ml Insuln.Pen SUBCUT 06/02/25 21:59 35 units QHS EMMA Administration Oxybutynin Chloride 10 mg 06/02/24 21:00 06/03/24 09:18 Oxybutynin Chloride 5 Mg Tab.Er.24 PO 06/02/25 20:59 10 mg BID EMMA Administration Prochlorperazine Edisylate 5 mg 06/02/24 18:07 Prochlorperazine Edisylate 10 Mg/2 Ml Vial IV-PUSH 06/02/25 18:06 Q4H PRN Nausea And Vomiting Sennosides 8.6 mg 06/02/24 18:07 Sennosides 8.6 Mg Tablet PO 06/02/25 18:06 BID PRN Constipation Sodium Chloride 0 ml 06/02/24 15:31 Sodium Chloride 0.9 % 10 Ml Syringe IV-PUSH 06/02/25 15:30 PRN PRN Flush A&P - Hospitalist Assessment/Plan (1) Acute kidney injury superimposed on CKD: (2) Hyperkalemia: (3) Hydronephrosis, left: Plan RINA on CKD with electrolytes abnormalities BPH, underwent prostate biopsy 06/01/24, and stent exchange per history Hyponatremia resolved/hyperkalemia Left-sided hydronephrosis and hydroureter Left nephrolithiasis -Afebrile here, no leukocytosis - Has completed course of AB recently for UTI. However, UA seems positive for infection, with his recent procedure and current hydronephrosis and plan for another procedure, would cover him with AB based on previous cx. -Pending urine cx. Started IV Rocephin. -Will provide gentle IV hydration as needed -Avoid ACEI, ARB for now -Ordered CT AP wo contrast in ER. showed right sided double-J ureteral stent. Left-sided hydronephrosis and hydroureter without definitive obstructing stone or mass, UVJ stricture cannot be excluded -Optimized electrolytes to keep K>4, Mg>2, P>3 -Avoid nephrotoxic medications -K 6.1>5.0>5.8. Given additional Lokelma per nephro. Monitor K. -Kidney function slightly improved but not yet back to baseline -Nephrology input appreciated. -Urology consulted. Advised to place pt NPO. Plan for cystoscopy today. DM -Continue insulin therapy, sliding scale Home medications reviewed and resumed as appropriate Diet: carb consistent DVT ppx: heparin Code status: Full Status: inpatient Discussed with patient and at bedside. All questions answered. In agreementwith the above plan Mayda Wilkes MD Internal Medicine Hospitalist Attending Physician Documented By: Mayda Matthews MD 06/03/24 14 31 Signed By: <Electronically signed by Mayda Matthews MD> 06/03/24 1431 [facility] Work Phone: [phone]) 358-267610-18-2024 Consult note Author Domonique Rahman [facility] June 03, 2024 11:17am Note Date/Time June 03, 2024 1 0:14am [facility] [address] [place], [place] [id number] Nephrology Consult Note Signed Patient: Patsy Cunningham MR#: [id number] : 1945 Acct:[id number] Age/Sex: 79 / M Adm Date: 4 Loc: 3T Room: [address] [place] [address] Type: ADM IN Attending Dr: Mayda Matthews MD Copies to: MD Mayda English MD Richard R Keller, MD~ Providers Consult Date: 06/03/24 Requesting Provider: Mayda Matthews MD Primary Care Provider: Helen Heath MD HPI Reason for Consult: Chronic kidney disease management and hyperkalemia History of Present Illness: Mr. Cunningham is a 79-year-old male with a past medical history of chronic kidney disease stage IV, multiple myeloma, BPH with a suprapubic catheter in place, diabetes mellitus, hypertension, nephrolithiasis who was sent in by his oncologist Dr. Huddleston yesterday for concerns of worsening kidney function and hyperkalemia. The day prior the patient had a prostate biopsy, ureteral stent exchange, and suprapubic catheter replaced by Dr. Cortez. Currently the patient follows Dr. Crain for his chronic kidney disease and has baseline serum creatinine 2.2 to 2.5 mg/dL. The patient's also states that he had recently stopped antibiotics for a concern of a UTI. The patient states that hehas been in his normal health. He does state that he has been feeling more tired recently, secondary to not having as much sleep. Patient states that today he feels like his bladder is spasming. He has been making urine. In the emergency room the patient was given Lokelma, insulin/dextrose, and calcium gluconate. Patient was started on gentle fluid resuscitation with LR. Patient denies any chest pain, shortness of breath, nausea, vomiting, diarrhea. Review of Systems Review of Systems All other systems reviewed & are negative unless noted below or in HPI Review of systems: Cardiovascular: denies any chest pain, palpitation Pulmonary: denies any cough, hemoptysis Gastrointestinal: denies any nausea, vomiting, diarrhea Neurological :denies any headache, numbness, weakness Endocrine: denies any polyuria, polydipsia Dermatological: denies any itching or rash Constitutional Constitutional: Denies anorexia, Denies chills, Reports fatigue, Denies fever(s)and Denies poor appetite Cardiovascular Cardiovascular: Denies chest pain and Denies dyspnea Respiratory Respiratory: Denies cough and Denies dyspnea Gastrointestinal Gastrointestinal: Denies abdominal pain, Denies bloating, Denies change in bowelhabits, Denies constipation, Denies diarrhea, Denies nausea and Denies vomiting [facility] Medical History Suprapubic catheter BPH (benign prostatic hyperplasia) Sepsis Multiple myeloma Apnea Skin cancer Arthritis Kidney stones Diabetes mellitus, type 2 Hyperlipidemia Hypertension Surgical History S/P TURP Family History Sister Myocardial infarction Mother Myocardial infarction Father Skin cancer Brother Hypertension Legacy FamHx Relation: Brother(s) Diabetes Legacy FamHx Relation: Brother(s) Father Cancer Legacy FamHx Problem: Diagnosed with Cancer Family/Other Legacy FamHx Problem: 1 SISTER KIDNEY STONES, SEPSIS Mother History of stroke Legacy FamHx Problem: Diagnosed with Stroke Social History Smoking Status: Former smoker Tobacco Type: cigarettes Substance Use Type: None Meds Medications & Allergies Allergies gabapentin Allergy (Unknown, Verified 06/02/24 15:31) Rash lisinopril Allergy (Unknown, Verified 06/02/24 15:31) DRY COUGH mirabegron [From Myrbetriq] Adverse Reaction (Verified 06/02/24 15:31) Diarrhea Home Medications atorvastatin 20 mg tablet 20 mg PO QPM 10/15/20 [History Confirmed 06/02/24] aspirin 81 mg tablet,delayed release 81 mg PO DAILY 11/26/20 [History Confirmed 06/02/24] famotidine 20 mg tablet 20 mg PO QPM 09/03/22 [History Confirmed 06/02/24] cholecalciferol (vitamin D3) 50 mcg (2,000 unit) capsule 50 mcg PO DAILY 10/26/23 [History Confirmed 06/02/24] docusate sodium 100 mg capsule (Stool Softener) 100 mg PO QPM 10/26/23 [History Confirmed 06/02/24] insulin lispro 100 unit/mL subcutaneous pen (Humalog KwikPen (U-100) Insulin) 8 unit subcut TID.AC 10/26/23 [History Confirmed 06/02/24] iron bis glycinate lashon 28 mg iron-vit C 60 mg-FA 400 mcg-B12 8mcg cap (Gentle Iron) 1 cap PO QPM 10/26/23 [History Confirmed 06/02/24] multivitamin (Daily Multi-Vitamin tablet) 1 tab PO DAILY 10/26/23 [History Confirmed 06/02/24] nitrofurantoin macrocrystal 100 mg capsule 100 mg PO QHS PRN infection 10/26/23 [History Confirmed 06/02/24] insulin glargine 100 unit/mL (3 mL) subcutaneous pen (Lantus Solostar U-100 Insulin) 35 unit subcut QHS 03/08/24 [History Confirmed 06/02/24] losartan 25 mg tablet 25 mg PO DAILY #90 tabs 03/08/24 [Rx Confirmed 06/02/24] mecobalamin (vitamin B12) 1,000 mcg chewable tablet 1,000 mcg PO DAILY 03/08/24 [History Confirmed 06/02/24] Lactobacillus acidophilus 10 billion cell capsule (NewFlora) 10,000 mmu cells PODAILY 06/02/24 [History Confirmed 06/02/24] Lactobacillus acidophilus 10 billion cell capsule (Probiotic) 10,000 mmu cells PO DAILY 06/02/24 [History Confirmed 06/02/24] darbepoetin raymond in polysorbat 10 mcg/0.4 mL in polysorbate injection syringe (Aranesp) 10 mcg IV .every other week PRN Hemoglobin less than 10 06/02/24 [History Confirmed 06/02/24] insulin lispro 100 unit/mL subcutaneous pen 1 sliding scale dose subcut .with meals 06/02/24 [History Confirmed 06/02/24] oxybutynin chloride 10 mg tablet,extended release 24 hr 10 mg PO BID 06/02/24 [History Confirmed 06/02/24] Active Medications: Active Medications Acetaminophen (Acetaminophen 325 Mg Tablet) 650 mg PO Q6HR PRN PRN Reason: Pain Scale 1 - 3 or fever Stop: 06/02/25 18:06 Last Admin: 06/03/24 00:51 Dose: 650 mg Atorvastatin Calcium (Atorvastatin 20 Mg Tablet) 20 mg PO QPM EMMA Stop: 06/02/25 20:59 Last Admin: 06/02/24 21:38 Dose: 20 mg Docusate Sodium (Docusate 100 Mg Capsule) 100 mg PO BID PRN PRN Reason: Constipation Stop: 06/02/25 18:06 Heparin Sodium (Porcine) (Heparin 5,000 Unit/Ml Vial) 5,000 unit SUBCUT Q12HR [facility] Stop: 06/02/25 20:59 Last Admin: 06/03/24 09:18 Dose: 5,000 unit Hydralazine HCl (Hydralazine 20 Mg/Ml Vial) 10 mg IV-PUSH Q4H PRN PRN Reason: if SBP > 185 Stop: 06/02/25 18:10 Hydromorphone HCl (Hydromorphone 0.5 Mg/0.5 Ml Syringe) 0.5 mg IV-PUSH Q4H PRN PRN Reason: Pain Scale 8 - 10 Lactated Ringer's (Lactated Ringers) 1,000 mls @ 75 mls/hr IV .[id number] [facility] Stop: 06/03/24 10:46 Last Admin: 06/02/24 21:38 Dose: 75 mls/hr Insulin Aspart (Insulin Aspart 300 Units/3 Ml Insuln.Pen) 8 units SUBCUT TID.ACSCH Stop: 06/03/25 07:29 Last Admin: 06/03/24 09:17 Dose: Not Given Insulin Glargine (Insulin Glargine 300 Units/3 Ml Insuln.Pen) 35 units SUBCUT QHS EMMA Stop: 06/02/25 21:59 Last Admin: 06/02/24 21:40 Dose: 35 units Oxybutynin Chloride (Oxybutynin Chloride 5 Mg Tab.Er.24) 10 mg PO BID [facility] Stop: 06/02/25 20:59 Last Admin: 06/03/24 09:18 Dose: 10 mg Prochlorperazine Edisylate (Prochlorperazine Edisylate 10 Mg/2 Ml Vial) 5 mg IV- PUSH Q4H PRN PRN Reason: Nausea And Vomiting Stop: 06/02/25 18:06 Sennosides (Sennosides 8.6 Mg Tablet) 8.6 mg PO BID PRN PRN Reason: Constipation Stop: 06/02/25 18:06 Sodium Chloride (Sodium Chloride 0.9 % 10 Ml Syringe) 0 ml IV-PUSH PRN PRN PRN Reason: Flush Stop: 06/02/25 15:30 Exam Physical Exam Vital Signs: Temp Pulse Resp BP Pulse Ox O2 Del Method 98.2 F 71 16 106/63 98 Room Air 06/03/24 08:00 06/03/24 08:00 06/03/24 08:00 06/03/24 08:00 06/03/24 08:00 06/03/24 08:00 Narrative: General: Appears comfortable and not in distress Heart: S1-S2, no rub Lung: Bilateral air entry, no wheezing or crackles Abdomen: Soft, positive bowel sounds Extremities: No edema, no cyanosis Head: Atraumatic, normocephalic Ear: No gross hearing Deficit or external ear redness Eyes: No pallor or redness Neck: No JVD or visible mass Skin: No rashes , warm to touch SIDE FRAMER: Awake,Alert, following simple command Musculoskeletal: No swelling or limitation of movement of the large joints Psychiatric: Cooperative, normal mood and affect Const General: cooperative, comfortable and no acute distress Orientation: alert, awake and oriented x3 Resp Effort & Inspection: normal respiratory effort and no cough Auscultation: clear to auscultation bilaterally, no rales, no rhonchi and no wheezes Cardio Jugular venous pressure: no JVD Rate: regular rate Rhythm: regular rhythm Heart Sounds: S1 normal, S2 normal, no gallops, no murmurs and no rubs GI Palpation: soft, no hepatosplenomegaly, not firm, no guarding and nontender Extrem General: normal to inspection and no clubbing, cyanosis or edema Results - Nephrology Labs 06/03/24 05:58 06/03/24 05:58 Labs: 06/02/24 06/02/24 06/02/24 15:58 19:56 21:22 BUN 48 H 44 H Creatinine 3.47 H 3.26 H Albumin Urine Color Light-yellow Urine Appearance Cloudy A Urine pH 6.0 Ur Specific [place] 1.013 Urine Protein 70 H Urine Glucose (UA) 100 H Urine Ketones Negative Urine Occult Blood 2+ H Urine Nitrite Negative Ur Leukocyte Esterase 4+ H Urine RBC 50-100 H Urine WBC Innumerable H Urine Bacteria 1+ H 06/03/24 05:58 BUN 42 H Creatinine 3.17 H Albumin 3.2 L Urine Color Urine Appearance Urine pH Ur Specific [place] Urine Protein Urine Glucose (UA) Urine Ketones Urine Occult Blood Urine Nitrite Ur Leukocyte Esterase Urine RBC Urine WBC Urine Bacteria Radiology Impressions Impressions - last 24 hours: Impressions Abdomen/Pelvis CT 06/02/24 17:31 IMPRESSION: No acute intra-abdominal process is seen. Right-sided double-J ureteral stent is noted. No stone is seen along the courseof the stent. Cholelithiasis. Left-sided hydronephrosis and hydroureter without definitive obstructing stone or mass. UVJ stricture cannot BE excluded. Left nephrolithiasis. Impression dictated by: Keenan Mir Jr., D.O.06/02/2024 6:08 PM Dictation Location: [place] [address] Any impression(s) listed above is documentation that was entered by the reading physician into a diagnostic report(s) for Patsy Cunningham. I have reviewed the report(s) and am incorporating any findings in the treatment plan of this patient where applicable. A&P - Nephrology Assessment/Plan (1) RINA (acute kidney injury): Assessment/Problem Details: Patient had an elevation in his creatinine to 3.47 from his baseline around 2.4. His creatinine has improved today from yesterday to 3.17. He has ATN either due to the intraoperative hemodynamic changes or obstruction. (2) Hydronephrosis, left: Assessment/Problem Details: CT of the abdomen pelvis demonstrated hydronephrosis with hydroureter and demonstrated an known UVJ stricture. The patient recently had a ureteral stent removed and replaced 2 days prior. (3) Hyperkalemia: Assessment/Problem Details: Patient had hyperkalemia due to the RINA on CKD and losartan (4) CKD (chronic kidney disease) stage 4, GFR 15-29 ml/min: Assessment/Problem Details: He has a longstanding CKD due to the DM and HTN with baseline serum creatinine around 2.2 to 2.5 mg/dL. (5) Hypertensive chronic kidney disease with stage 1 through stage 4 chronic kidney disease, or unspecified chronic kidney disease: Assessment/Problem Details: The patient has had stable blood pressures during this admission and was on losartan (6) Anemia of renal disease: Assessment/Problem Details: Patient's hemoglobin has been stable on Aranesp (7) Type 2 diabetes mellitus with diabetic chronic kidney disease: Assessment/Problem Details: He has insulin-dependent type 2 diabetes mellitus. He takes insulin and glargine at home. Plan * No need for emergent hemodialysis now. Will continue assess its needs on regular basis. * Will give additional dose of Lokelma. * Will hold further fluid resuscitation. * Continue to hold home dose of the losartan * Continue DM management as per the primary hospitalist team. The goal blood sugars between 100 to 115 g/dL. * Urology has been consulted for left-sided hydronephrosis. * Thanks for consult. Will continue follow-up with you. Please feel free to call us with any question. Documented By: Domonique Rahman MD 06/03/24 0934 Signed By: <Electronically signed by Domonique Rahman MD> 06/03/24 1117 [facility] Work Phone: [phone]) 958-659810-17-2024 History and physical note Author Mayda Matthews [facility] June 02, 2024 6:36pm Note Date/Time June 02, 2024 6 :12pm [facility] [address] [place] [address] Hospitalist H&P Signed Patient: Patsy Cunningham MR#: [id number] : 1945 Acct:[id number] Age/Sex: 79 / M Adm Date: 4 Loc: Room: [address] [place] [address] Type: ADM IN Attending Dr: Mayda Matthews MD Copies to: MD Helen Ivy MD~ HPI DATE OF EXAMINATION: 06/02/24 CHIEF COMPLAINT: Abnormal labs HISTORY OF PRESENT ILLNESS: Patient is a 79-year-old male with medical history as listed below presented to the ER due to abnormal labs. Patient states that he underwent prostate biopsy as outpatient yesterday as well as ureteral stent exchange done by urology as outpatient Dr. Cortez yesterday. Patient tolerated the procedure well with no immediate complications. He does have suprapubic catheter at baseline. Denies any issues with drainage from catheter. Denies fever, chills, nausea, vomiting. He does report feeling tired and unwell. He feels dehydrated since he was fasting for the procedure. He does follow with nephrology Dr. Brink as outpatient regarding his CKD. Patient also follows with oncologist Dr. Huddleston regarding his multiple myeloma and currently undergoing treatment. He was todayfor follow-up visit at oncology and underwent blood work which showed worsening kidney function and hyperkalemia with potassium 6.1. EKG showed normal sinus rhythm with no acute changes. BUN 48 and creatinine 3.47 which has progressed from before. Afebrile here, no leukocytosis, hemoglobin appears stable. Patient does report some hematuria postprocedure which she thought was normal since he gets that after interventions. He does report there was blood clots coming out which has been cleared according to him. Hemodynamically stable at this time. Patient was given IV fluids in the ER as well as hyperkalemia cocktail with insulin/dextrose, Lokelma, calcium gluconate. Decision was made toadmit him for further evaluation and management. Review of Systems Review of Systems Review of systems: 10 systems are reviewed and are negative except as mentioned elsewhere in the documentation [facility] Medical History Suprapubic catheter BPH (benign prostatic hyperplasia) Sepsis Multiple myeloma Apnea Skin cancer Arthritis Kidney stones Diabetes mellitus, type 2 Hyperlipidemia Hypertension Surgical History S/P TURP Family History Sister Myocardial infarction Mother Myocardial infarction Father Skin cancer Brother Hypertension Legacy FamHx Relation: Brother(s) Diabetes Legacy FamHx Relation: Brother(s) Father Cancer Legacy FamHx Problem: Diagnosed with Cancer Family/Other Legacy FamHx Problem: 1 SISTER KIDNEY STONES, SEPSIS Mother History of stroke Legacy FamHx Problem: Diagnosed with Stroke Social History Smoking Status: Former smoker Tobacco Type: cigarettes Substance Use Type: None Meds Medications and Allergies Allergies gabapentin Allergy (Unknown, Verified 06/02/24 15:31) Rash lisinopril Allergy (Unknown, Verified 06/02/24 15:31) DRY COUGH mirabegron [From Myrbetriq] Adverse Reaction (Verified 06/02/24 15:31) Diarrhea Home Medications atorvastatin 20 mg tablet 20 mg PO QPM 10/15/20 [History Confirmed 06/02/24] aspirin 81 mg tablet,delayed release 81 mg PO DAILY 11/26/20 [History Confirmed 06/02/24] famotidine 20 mg tablet 20 mg PO QPM 09/03/22 [History Confirmed 06/02/24] cholecalciferol (vitamin D3) 50 mcg (2,000 unit) capsule 50 mcg PO DAILY 10/26/23 [History Confirmed 06/02/24] docusate sodium 100 mg capsule (Stool Softener) 100 mg PO QPM 10/26/23 [History Confirmed 06/02/24] insulin lispro 100 unit/mL subcutaneous pen (Humalog KwikPen (U-100) Insulin) 8 unit subcut TID.AC 10/26/23 [History Confirmed 06/02/24] iron bis glycinate lashon 28 mg iron-vit C 60 mg-FA 400 mcg-B12 8mcg cap (Gentle Iron) 1 cap PO QPM 10/26/23 [History Confirmed 06/02/24] multivitamin (Daily Multi-Vitamin tablet) 1 tab PO DAILY 10/26/23 [History Confirmed 06/02/24] nitrofurantoin macrocrystal 100 mg capsule 100 mg PO QHS PRN infection 10/26/23 [History Confirmed 06/02/24] insulin glargine 100 unit/mL (3 mL) subcutaneous pen (Lantus Solostar U-100 Insulin) 35 unit subcut QHS 03/08/24 [History Confirmed 06/02/24] losartan 25 mg tablet 25 mg PO DAILY #90 tabs 03/08/24 [Rx Confirmed 06/02/24] mecobalamin (vitamin B12) 1,000 mcg chewable tablet 1,000 mcg PO DAILY 03/08/24 [History Confirmed 06/02/24] Lactobacillus acidophilus 10 billion cell capsule (NewFlora) 10,000 mmu cells PODAILY 06/02/24 [History Confirmed 06/02/24] Lactobacillus acidophilus 10 billion cell capsule (Probiotic) 10,000 mmu cells PO DAILY 06/02/24 [History Confirmed 06/02/24] darbepoetin raymond in polysorbat 10 mcg/0.4 mL in polysorbate injection syringe (Aranesp) 10 mcg IV .every other week PRN Hemoglobin less than 10 06/02/24 [History Confirmed 06/02/24] insulin lispro 100 unit/mL subcutaneous pen 1 sliding scale dose subcut .with meals 06/02/24 [History Confirmed 06/02/24] oxybutynin chloride 10 mg tablet,extended release 24 hr 10 mg PO BID 06/02/24 [History Confirmed 06/02/24] Exam Physical Exam Vital Signs: Temp Pulse Resp BP Pulse Ox O2 Del Method 98 F 74 18 162/67 H 98 Room Air 06/02/24 15:31 06/02/24 15:31 06/02/24 15:31 06/02/24 15:31 06/02/24 15:31 06/02/24 15:31 Narrative: Const General: cooperative HEENT dry oropharyngeal mucosa without any ulcers or exudates Eyes: Conjunctiva normal Pulmonary Auscultation: clear to auscultation , no crackles, no wheezes Cardiovascular Rate: normal rate Rhythm: regular rhythm Heart Sounds: S1 normal, S2 normal and no murmurs GI Inspection: non-distended Palpation: soft, not firm and nontender. No rigidity or rebound. Suprapubic catheter in place, draining clear urine, no hematuria Neuro General: alert, awake and oriented x3. No obvious new focal deficit Musculoskeletal: normal range of motion Extrem General: no cyanosis, no pedal edema Psych Appearance: appropriate affect. Grossly normal Results - Hospitalist H&P Lab Results Labs: Laboratory Last Values PHA Creatinine Clear 19.50 06/02/24 15:58 Sodium 133 mmol/L (136-145) L 06/02/24 15:58 Potassium 6.1 mmol/L (3.5-5.1) H* 06/02/24 15:58 Chloride 107 mmol/L (98-107) 06/02/24 15:58 Carbon Dioxide 20.3 mmol/L (21.0-31.0) L 06/02/24 15:58 Anion Gap 11.8 mEq/L (6.0-15.0) 06/02/24 15:58 BUN 48 mg/dL (7-25) H 06/02/24 15:58 Creatinine 3.47 mg/dL (0.70-1.30) H 06/02/24 15:58 Est GFR (CKD-EPI) 17.203 mL/Min 06/02/24 15:58 Glucose 114 mg/dL (70-100) H 06/02/24 15:58 Calcium 9.3 mg/dL (8.6-10.3) 06/02/24 15:58 Assessment & Plan Assessment/Plan (1) Acute kidney injury superimposed on CKD: (2) Hyperkalemia: (3) Hydronephrosis, left: Plan RINA on CKD with electrolytes abnormalities BPH, underwent prostate biopsy 06/01/24, and stent exchange per history Hyponatremia/hyperkalemia Left-sided hydronephrosis and hydroureter Left nephrolithiasis -Afebrile here, no leukocytosis -Check UA. Has completed course of AB recently for UTI. -Will provide gentle IV hydration as directed -Avoid ACEI, ARB for now -Ordered CT AP wo contrast in ER. showed right sided double-J ureteral stent. Left-sided hydronephrosis and hydroureter without definitive obstructing stone or mass, UVJ stricture cannot be excluded -Optimized electrolytes to keep K>4, Mg>2, P>3 -Avoid nephrotoxic medications -Nephrology consult for input -Urology consult for input DM -Continue insulin therapy, sliding scale Home medications reviewed and resumed as appropriate Diet: carb consistent DVT ppx: heparin Code status: Full Status: inpatient Discussed with patient and at bedside. All questions answered. In agreementwith the above plan Mayda Wilkes MD Internal Medicine Hospitalist Attending Physician IP vs OBS Justification Based on differential dx, clinical care plan, and risk of adverse events, if untreated, in my clinical judgement this patient requires an acute care setting as: INPATIENT because of an expectation of an over 2 midnight stay. 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 June 02, 024 2:06pm 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 2: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 Acute kidney injury superimposed on CKD inactive May 2:06pm Anemia of renal disease inactive O ctober 2023 2:06pm Chronic suprapubic catheter inactive June 02, 2024 2:06pm Hyperkalemia inactive May 2:06pm Acute kidney injury superimposed on CKD inactive May 5:52pm RINA (acute kidney injury) inactive June 02, 2024 5:52pm Anemia of renal disease inactive O ctober 2023 5:52pm Chronic suprapubic catheter inactive June 02, 2024 5:52pm CKD (chronic kidney disease) stage 4, GFR 15-29 ml/min inactive Octobe r 2023 5:52pm Hydronephrosis, left inactive Mayo pierre 2023 5:52pm Hyperkalemia inactive May 5:52pm Hypertensive chronic kidney disease with stage 1 through stage 4 chronic ki inactive June 02, 2024 5:52pm Noncompliant bladder inactive 2023 5:52pm Type 2 diabetes mellitus wit h diabetic chronic kidney disease inactive June 02, 2024 5:52pm B12 deficiency chronic June 232023 11:03am Chemotherapy-induced periphe ral neuropathy June 23 11:03am Encounter for chemotherapy management June 23 11:03am Encounter for coordination o f complex care chronic June 23 11:03am History of anemia due to vitamin B12 deficiency June 23, 2024 11:03am History of hemodialysis chronic N ovember 2023 11:03am Iron deficiency anemia chronic No vember 2023 11:03am 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 June 23, 2 024 11:03am Rash and nonspecific skin eruption chronic June 23 11:03am 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 11:03am Superficial thrombophlebitis of left upper extremity june 11:03am Urinary incontinence chronic Nove mber 2023 11:03am Acute renal failure on dialysis reso lved June 23, 2024 11:03am Anemia of renal disease inactive N ovember 2023 11:03am [facility] Work Phone: 1(652) 262-577610-17-2024 Evaluation note* Diagnosis Onset Date Resolution Status Admit Date Anemia of chronic renal failure, stage 4 (severe) acute Mayobe r 2023 2:06pm B12 deficiency chronic June 022023 2:06pm Encounter for coordination o f complex care chronic June 02 2:06pm History of hemodialysis chronic O ct2023 2:06pm 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 June 02, 024 2:06pm 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 2:06pm Acute kidney injury superimposed on CKD inactive May 2:06pm Anemia of renal disease inactive O ctober 2023 2:06pm Chronic suprapubic catheter inactive June 02, 2024 2:06pm Hyperkalemia inactive May 2:06pm Acute kidney injury superimposed on CKD inactive May 5:52pm RINA (acute kidney injury) inactive June 02, 2024 5:52pm Anemia of renal disease inactive O ctober 2023 5:52pm Chronic suprapubic catheter inactive June 02, 2024 5:52pm CKD (chronic kidney disease) stage 4, GFR 15-29 ml/min inactive Octobe r 2023 5:52pm Hydronephrosis, left inactive 2023 5:52pm Hyperkalemia inactive May 5:52pm Hypertensive chronic kidney disease with stage 1 through stage 4 chronic ki inactive June 02, 2024 5:52pm Noncompliant bladder inactive 2023 5:52pm Type 2 diabetes mellitus wit h diabetic chronic kidney disease inactive June 02, 2024 5:52pm B12 deficiency chronic June 232023 11:03am 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 23 11:03am Encounter for chemotherapy management chronic June 23 11:03am Encounter for coordination o f complex care chronic June 23 11:03am History of anemia due to vitamin B12 deficiency chronic June 23, 2024 11:03am History of hemodialysis chronic N ovember 2023 11:03am Iron deficiency anemia chronic No vember 2023 11:03am 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 June 23, 2 024 11:03am Rash and nonspecific skin eruption chronic June 23 11:03am 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 11:03am Superficial thrombophlebitis of left upper extremity chronic June 11:03am Urinary incontinence chronic Amilcar mbmachelle 2023 11:03am Acute renal failure on dialysis reso lved June 23, 2024 11:03am Anemia of renal disease inactive N ovember 2023 11:03am Anemia of chronic renal failure, stage 4 (severe) acute Novemb er 2023 2:19pm 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 June 29 024 2:19pm Hypophosphatemia acute June 29, 2024 2:19pm History of anemia due to vitamin B12 deficiency chronic June 29, 2024 2:19pm 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 June 29, 2024 2:19pm Hyperkalemia inactive June 2:19pm Hypertensive chronic kidney disease with stage 1 through stage 4 chronic ki inactive June 2:19pm Hydronephrosis deleted June 172023 2:19pm Stage 3b chronic kidney dise ase (CKD) deleted June 29 024 2:19pm [facility] Work Phone: [phone]) 697-418209-03-2024 Evaluation + Plan note Diagnostic Tests Pending * Urine Culture 04/19/24 [facility] 06-19-2024 Note [id number] Discharge instructions Patient Education 01/28/2024 11:05:42 Sacral Nerve Stimulator Implantation Sacral Nerve Stimulator Implantation Sacral nerve stimulator implantation is a procedure to place a device under the skin. The device isused to treat disorders that make it hard to control urine and bowel movements. The device generates mild electrical impulses. It is placed permanently in the area of the upper buttocks. Wires (electrodes) are also inserted into the body so that electrical impulses generated by the device can be sent to the sacral nerves. The sacral nerves control several functions in the lower part of the body, including the passing of urine and stool. Before having sacral nerve stimulator implantation, you may undergo a trial test called a percutaneous nerve evaluation. This trial, which usually lasts 1 2 weeks, helps to determine if sacral nerve stimulation will help your condition. Sacral nerve stimulator implantation is a two-stage surgery. Stage 1 of this surgery involves implanting an electrode into your lower back, near your sacral nerve. A wire (lead) is attached to the electrode and run under the skin to exit through your back. The sacral nerve stimulator lead is attached to a handheld device. This trial helps determine if sacral nerve stimulation will help your condition. If your bladder symptoms improve by at least 50 percent during the trial phase, you may have the second stage. After the device is fully implanted in stage 2, it can be used 24 hours a day. The stimulator will be programmed for you. Your health care provider will set how strong the pulses will be (intensity) and how often they occur (frequency). Tell a health care provider about: Any allergies you have. All medicines you are taking, including vitamins, herbs, eye drops, creams, and cqgc-wmv-yvpeehj medicines. Any problems you or family members have had with anesthetic medicines. Any blood disorders you have. Any surgeries you have had. Any medical conditions you have or have had. Whether you are or may be . What are the risks? Generally, this is a safe procedure. However, problems may occur, including: Infection. Bleeding. Uncomfortable sensations, such as a jolting or shocking feeling. Movement of the electrode away from the place where it was inserted (migration). Failure of the stimulator. Damage to nearby structures or organs, such as nerves near the spine. Allergic reactions to medicines or the device. What happens before the procedure? Staying hydrated Follow instructions from your health care provider about hydration, which may include: Up to 2 hours before the procedure you may continue to drink clear liquids, such as water, clear fruit juice, black coffee, and plain tea. Eating and drinking restrictions Follow instructions from your health care provider about eating and drinking, which may include: 8 hours before the procedure stop eating heavy meals or foods, such as meat, fried foods, or fatty foods. 6 hours before the procedure stop eating light meals or foods, such as toast or cereal. 6 hours before the procedure stop drinking milk or drinks that contain milk. 2 hours before the procedure stop drinking clear liquids. Medicines Ask your health care provider about: Changing or stopping your regular medicines. This is especially important if you are taking diabetes medicines or blood thinners. Taking medicines such as aspirin and ibuprofen. These medicines can thin your blood. Do not take these medicines unless your health care provider tells you to take them. Taking tgig-ypc-tfyjpgj medicines, vitamins, herbs, and supplements. General instructions Plan to have a responsible adult take you home from the hospital or clinic. If you will be going home right after the procedure, plan to have a responsible adult care for you for the time you are told. This is important. Ask your health care provider what steps will be taken to help prevent infection. These steps may include: ?Removing hair at the surgery site. ?Washing skin with a germ-killing soap. ?Taking antibiotic medicine. What happens during the procedure? An IV will be inserted into one of your veins. You will be given one or more of the following: ?A medicine to help you relax (sedative). ?A medicine to numb the area (local anesthetic). ?A medicine to make you fall asleep (general anesthetic). Long needles will be inserted into your lower back. The needles will be guided to the place where the nerves exit the backbone. The position of the needles will be tested. If they are in the right spot, your toes or feet may move. If you are awake, you may feel a tingling in your legs. The electrodes will be inserted through the needles and into your body. The electrodes will be anchored in place close to your sacral nerves. Small incisions will be made under the skin in your upper buttocks. The sacral nerve stimulator device will be placed in this area. The ends of the electrodes that attach to the stimulator will be guided under your skin. They will extend from your sacral nerves, where they are anchored, to the stimulator device. They will then beattached to the device. Your health care provider will program the rate at which the nerve stimulator will deliver the electronic pulses. The incisions will be closed with stitches (sutures) or sade. A bandage (dressing) will be placed over the incision area. The procedure may vary among health care providers and hospitals. What happens after the procedure? Your blood pressure, heart rate, breathing rate, and blood oxygen level will be monitored until youleave the hospital or clinic. You may be given pain and antibiotic medicine as needed. You will be taught how to use and care for the device. If you were given a sedative during the procedure, it can affect you for several hours. Do not drive or operate machinery until your health care provider says that it is safe. Summary Sacral nerve stimulator implantation is a procedure to place a device under your skin. The device will treat disorders that make it hard to control urine and bowel movements. The sacral nerves control several functions in the lower part of the body, including bladder and bowel functions. If you will be going home right after the procedure, plan to have a responsible adult care for you for the time you are told. You will be taught how to use and care for the device. If you were given a sedative during the procedure, do not drive until your health care provider approves. This information is not intended to replace advice given to you by your health care provider. Make sure you discuss any questions you have with your health care provider. Document Revised: 03/08/2021 Document Reviewed: 03/08/2021 [place] Patient Education 2022 [employer]. Follow Up Care 09/25/2023 15:44:21 With:Diego RICKS, OUSMANE Bell, URO Address: When: Unknown [facility] 06-10-2024 Note [id number] Progress note Author Price Crain [facility] January 22, 2024 10:20am Note Date/Time January 22, 2024 10:20 am [facility] [address] [place] [address] Nephrology Progress Note Signed Patient: Patsy Cunningham MR#: [id number] : 1945 Acct:[id number] Age/Sex: 78 / M Adm Date: 4 Loc: Room: 1D8027-0 Type: ADM IN Attending Dr: Clarence Miller DO Copies to: ~ Date of Service: 01/22/2024 Subjective Subjective Narrative: This is a 78-year-old male patient with past medical history of 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 Patient present to the hospital for progressive generalized weakness along with fatigue and lightheadedness and chills for the last week. Patient was prescribed Macrobid as outpatient for UTI in the emergency room UA continues to show UTI. Patient was admitted and was given 1 L of normal saline and kept on IV fluid Ringer lactate at 100 cc/h .Urine cultures growing Klebsiella oxytoca. Patient currently on Rocephin. Renal ultrasound showed mild bilateral pelvocaliectasis left more than right. Lab at admission revealed serum creatinine 3.0 mg deciliter and repeated labs yesterday showed creatinine 2.99 mg deciliter and today 2.8 mg deciliter. Patient made about 300 cc urine output overnight. Renal team is consulted to help managing RINA on chronic kidney disease. Currently vital signs stable patient on room air with oxygen saturation 98% There has been no NSAID use. No IV contrast exposure. Interval history: Patient was seen and examined in his room. Denied worsening breathing. No nausea no vomiting. No shortness of breath. Continues to be on Ringer lactate at 100 cc/h. Urology evaluated the patient for bilateral pelviectasis. It doesnot seem there is a plan for intervention Reviewed lab from this morning. Serum creatinine 2.58 mg deciliter, creatinine 4.1 mmol/L, sodium 141 mmol/L, serum bicarb 25. Blood pressure is stable Home losartan remains on hold Exam Physical Exam Vital Signs: Temp Pulse Resp BP Pulse Ox O2 Del Method 98.1 F 69 16 117/56 L 97 Room Air 01/22/24 08:00 01/22/24 08:00 01/22/24 08:00 01/22/24 08:00 01/22/24 08:00 01/22/24 08:00 Narrative: General: No acute distress Head :atraumatic normocephalic Eyes: PERRLA. Neck: no JVD no bruit. Heart: S1-S2. RRR Respiratory: Clear to auscultation. No wheezing. No crackles Abdomen: Soft, positive bowel sounds,no tenderness. Neurology: Awake alert oriented x3. No focal deficits Extremity. No cyanosis. No edema Skin: No skin rash Objective Intake and Output I&O: Intake & Output 01/19/24 01/20/24 01/21/24 01/22/24 23:59 23:59 23:59 23:59 Intake Total 50 / 100 2660 / 2660 3200 / 3200 1450 / 1450 Output Total 75 / 75 250 / 250 300 / 300 Balance - 2410 / 2410 2900 / 2900 1450 / 1450 Weight 200 lb 9.93 oz 201 lb 4.513 oz 204 lb 5.896 oz 204 lb 2.369 oz Meds and Allergies Meds: Active Medications Acetaminophen (Acetaminophen 325 Mg Tablet) 650 mg PO Q6HR PRN PRN Reason: bladder pain Stop: 01/19/25 01:01 Last Admin: 01/21/24 15:17 Dose: 650 mg Aspirin (Aspirin 81 Mg Tablet.Dr) 81 mg PO DAILY EMMA Stop: 01/19/25 08:59 Last Admin: 01/22/24 08:45 Dose: 81 mg Atorvastatin Calcium (Atorvastatin 20 Mg Tablet) 20 mg PO DAILY EMMA Stop: 01/19/25 08:59 Last Admin: 01/22/24 08:45 Dose: 20 mg Docusate Sodium (Docusate 100 Mg Capsule) 100 mg PO DAILY EMMA Stop: 01/19/25 08:59 Last Admin: 01/22/24 08:46 Dose: 100 mg Famotidine (Famotidine 20 Mg Tablet) 20 mg PO DAILY EMMA Stop: 01/19/25 08:59 Last Admin: 01/22/24 08:46 Dose: 20 mg Heparin Sodium (Porcine) (Heparin 5,000 Unit/Ml Vial) 5,000 unit SUBCUT Q12HR EMMA Stop: 01/20/25 08:59 Last Admin: 01/22/24 08:46 Dose: 5,000 unit Lactated Ringer's (Lactated Ringers) 1,000 mls @ 100 mls/hr IV .Q10H EMMA Stop: 01/18/25 19:44 Last Admin: 01/22/24 02:31 Dose: 100 mls/hr Ceftriaxone Sodium (Rocephin) 2 gm in 50 mls @ 100 mls/hr IV Q24H [facility] Last Infusion: 01/21/24 21:32 Dose: Infused Insulin Aspart (Insulin Aspart 300 Units/3 Ml Insuln.Pen) 8 units SUBCUT TID.ACSCH Stop: 01/19/25 07:29 Last Admin: 01/22/24 07:38 Dose: Not Given Insulin Glargine (Insulin Glargine 300 Units/3 Ml Insuln.Pen) 45 units SUBCUT QHS EMMA Stop: 01/18/25 21:59 Last Admin: 01/21/24 21:31 Dose: Not Given Lact Acid/Bifidobact/Lact [place]/Streptoc Th (L. Acidophilus/Strept/La P-Frank 1 Cap Capsule) 1 cap PO DAILY EMMA Stop: 01/19/25 08:59 Last Admin: 01/22/24 08:46 Dose: 1 cap Sodium Chloride (Sodium Chloride 0.9 % 10 Ml Syringe) 0 ml IV-PUSH PRN PRN PRN Reason: Flush Stop: 01/18/25 13:59 Last Admin: 01/21/24 20:27 Dose: 10 ml Vitamin D (Cholecalciferol 25 Mcg (1,000 Units) Tablet) 50 mcg PO DAILY EMMA Stop: 01/19/25 08:59 Last Admin: 01/22/24 08:46 Dose: 50 mcg Allergies gabapentin Allergy (Unknown, Verified 01/19/24 14:00) Rash lisinopril Allergy (Unknown, Verified 01/19/24 14:00) DRY COUGH mirabegron [From Myrbetriq] Adverse Reaction (Verified 01/19/24 14:00) Diarrhea Results - Nephrology Labs 01/22/24 07:42 01/22/24 07:42 Labs: 01/22/24 07:42 BUN 31 H Creatinine 2.58 H Iron Saturation 36.0 Ferritin 488.7 H Radiology Impressions Impressions - last 24 hours: Any impression(s) listed above is documentation that was entered by the reading physician into a diagnostic report(s) for Patsy Cunningham. I have reviewed the report(s) and am incorporating any findings in the treatment plan of this patient where applicable. A&P - Nephrology Assessment/Plan (1) RINA (acute kidney injury): Plan: Patient presents with a creatinine 3.0 mg/dL. Sodium fractional excretion is 4.8%. Patient has mild bilateral pelvocaliectasis. Patient has been IV fluid since admission Ringer lactate 100 cc/h. 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 Baseline creatinine around 1.8 mg deciliter patient follows with me in renal office (3) Complicated urinary tract infection: Plan: Patient has bladder dysfunction from BPH. He has chronic suprapubic catheter. Urine cultures growing Klebsiella oxytoca. Currently Rocephin (4) Hydronephrosis: Plan: Ultrasound admission revealed mild bilateral pelvocaliectasis Plan * Sodium fractional excretion is 4.8% acute kidney injury is either from ATN or post renal etiology since ultrasound showing bilateral pelviectasis. * There is no urgent need for renal placement therapy. * Will stop IV fluid. Continue holding home losartan * Follow urology recommendation.Patient does follow with Dr. Lane at urology office for suprapubic catheter care and ureteral stent exchange every 4 months. He has appointment next week * Continue treating Klebsiella UTI Ceftriaxone is appropriate dose for current kidney function * There is no iron deficiency nor folate or vitamin B12 deficiency. Hemoglobin stable. * Check CBC along with renal function panel in a.m. Patient can be discharged from nephrology standpoint. Please continue holding losartan at discharge. Please stop metformin at discharge. Please schedule patient to follow-up with me in renal office in 2 to 3 weeks Documented By: Price Crain MD 01/22/24 1013 Signed By: <Electronically signed by Price Crain MD> 01/22/24 1020 [facility] Work Phone: 1(278) 381-909006-06-2024 Consult note Author Price Crain [facility] January 21, 2024 12:47pm Note Date/Time January 21, 2024 12:42 pm [facility] [address] [place] [address] Nephrology Consult Note Signed Patient: Patsy Cunningham MR#: [id number] : 1945 Acct:[id number] Age/Sex: 78 / M Adm Date: 4 Loc: Room: [address] [place] [address] Type: ADM IN Attending Dr: Clarence Miller DO Copies to: MD Clarence Ashton DO Richard R Keller, MD~ Providers Consult Date: 01/21/24 Requesting Provider: Clarence Miller DO Primary Care Provider: Helen Heath MD [facility] Reason for Consult: Acute kidney injury on chronic kidney disease History of Present Illness: This is a 78-year-old male patient with past medical history of 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 Patient present to the hospital for progressive generalized weakness along with fatigue and lightheadedness and chills for the last week. Patient was prescribed Macrobid as outpatient for UTI in the emergency room UA continues to show UTI. Patient was admitted and was given 1 L of normal saline and kept on IV fluid Ringer lactate at 100 cc/h .Urine cultures growing Klebsiella oxytoca. Patient currently on Rocephin. Renal ultrasound showed mild bilateral pelvocaliectasis left more than right. Lab at admission revealed serum creatinine 3.0 mg deciliter and repeated labs yesterday showed creatinine 2.99 mg deciliter and today 2.8 mg deciliter. Patient made about 300 cc urine output overnight. Renal team is consulted to help managing RINA on chronic kidney disease. Currently vital signs stable patient on room air with oxygen saturation 98% There has been no NSAID use. No IV contrast exposure. Review of Systems Review of Systems Review of systems: 12 system review is negative today [facility] Medical History (Updated 01/19/24 @ 21:16 by Clarence Miller DO) Suprapubic catheter BPH (benign prostatic hyperplasia) Sepsis Multiple myeloma Apnea Skin cancer Arthritis Kidney stones Diabetes mellitus, type 2 Hyperlipidemia Hypertension Surgical History (Updated 01/19/24 @ 19:07 by Vania Seals RN) S/P TURP Family History Sister Myocardial infarction Mother Myocardial infarction Father Skin cancer Brother Hypertension Legacy FamHx Relation: Brother(s) Diabetes Legacy FamHx Relation: Brother(s) Father Cancer Legacy FamHx Problem: Diagnosed with Cancer Family/Other Legacy FamHx Problem: 1 SISTER KIDNEY STONES, SEPSIS Mother History of stroke Legacy FamHx Problem: Diagnosed with Stroke Social History Smoking Status: Former smoker Tobacco Type: cigarettes Substance Use Type: None Meds Medications & Allergies Allergies gabapentin Allergy (Unknown, Verified 01/19/24 14:00) Rash lisinopril Allergy (Unknown, Verified 01/19/24 14:00) DRY COUGH mirabegron [From Myrbetriq] Adverse Reaction (Verified 01/19/24 14:00) Diarrhea Home Medications atorvastatin 20 mg tablet 20 mg PO DAILY 10/15/20 [History Confirmed 01/19/24] aspirin 81 mg tablet,delayed release 81 mg PO DAILY 11/26/20 [History Confirmed 01/19/24] metformin 500 mg tablet 500 mg PO BID 11/26/20 [History Confirmed 01/19/24] oxybutynin chloride 5 mg tablet 10 mg PO BID 07/28/22 [History Confirmed 01/19/24] famotidine 20 mg tablet 20 mg PO DAILY 09/03/22 [History Confirmed 01/19/24] losartan 25 mg tablet 25 mg PO DAILY 10/01/23 [History Confirmed 01/19/24] Lactobacillus combo no.23 14 billion cell capsule (Suleman Probiotic) See Rx Instructions PO .once a day 10/26/23 [History Confirmed 01/19/24] cholecalciferol (vitamin D3) 50 mcg (2,000 unit) capsule 50 mcg PO DAILY 10/26/23 [History Confirmed 01/19/24] docusate sodium 100 mg capsule (Stool Softener) 100 mg PO DAILY 10/26/23 [History Confirmed 01/19/24] insulin glargine 100 unit/mL (3 mL) subcutaneous pen (Lantus Solostar U-100 Insulin) 45 unit subcut QHS 10/26/23 [History Confirmed 01/19/24] insulin lispro 100 unit/mL subcutaneous pen (Humalog KwikPen (U-100) Insulin) 8 unit subcut TID.AC 10/26/23 [History Confirmed 01/19/24] iron bis glycinate lashon 28 mg iron-vit C 60 mg-FA 400 mcg-B12 8mcg cap (Gentle Iron) 1 cap PO QDAY 10/26/23 [History Confirmed 01/19/24] multivitamin (Daily Multi-Vitamin tablet) 1 tab PO DAILY 10/26/23 [History Confirmed 01/19/24] nitrofurantoin macrocrystal 100 mg capsule 100 mg PO QHS PRN infection 10/26/23 [History Confirmed 01/19/24] acetaminophen 325 mg tablet (Tylenol) 650 mg PO Q6HR PRN bladder pain 01/20/24 [History Confirmed 01/20/24] Active Medications: Active Medications Acetaminophen (Acetaminophen 325 Mg Tablet) 650 mg PO Q6HR PRN PRN Reason: bladder pain Stop: 01/19/25 01:01 Last Admin: 01/20/24 20:11 Dose: 650 mg Aspirin (Aspirin 81 Mg Tablet.) 81 mg PO DAILY [facility]MA Stop: 01/19/25 08:59 Last Admin: 01/21/24 08:10 Dose: 81 mg Atorvastatin Calcium (Atorvastatin 20 Mg Tablet) 20 mg PO DAILY EMMA Stop: 01/19/25 08:59 Last Admin: 01/21/24 08:10 Dose: 20 mg Docusate Sodium (Docusate 100 Mg Capsule) 100 mg PO DAILY [facility]MA Stop: 01/19/25 08:59 Last Admin: 01/21/24 08:10 Dose: 100 mg Famotidine (Famotidine 20 Mg Tablet) 20 mg PO DAILY [facility] Stop: 01/19/25 08:59 Last Admin: 01/21/24 08:10 Dose: 20 mg Heparin Sodium (Porcine) (Heparin 5,000 Unit/Ml Vial) 5,000 unit SUBCUT Q12HR [facility] Stop: 01/20/25 08:59 Last Admin: 01/21/24 09:19 Dose: 5,000 unit Lactated Ringer's (Lactated Ringers) 1,000 mls @ 100 mls/hr IV .Q10H [facility] Stop: 01/18/25 19:44 Last Admin: 01/21/24 05:17 Dose: 100 mls/hr Ceftriaxone Sodium (Rocephin) 2 gm in 50 mls @ 100 mls/hr IV Q24H [facility] Last Infusion: 01/20/24 20:49 Dose: Infused Insulin Aspart (Insulin Aspart 300 Units/3 Ml Insuln.Pen) 8 units SUBCUT TID.ACSCH Stop: 01/19/25 07:29 Last Admin: 01/21/24 08:42 Dose: 8 units Insulin Glargine (Insulin Glargine 300 Units/3 Ml Insuln.Pen) 45 units SUBCUT QHS [facility] Stop: 01/18/25 21:59 Last Admin: 01/20/24 22:21 Dose: 45 units Lact Acid/Bifidobact/Lact Paracas/Streptoc Th (L. Acidophilus/Strept/La P-Frank 1 Cap Capsule) 1 cap PO DAILY [facility] Stop: 01/19/25 08:59 Last Admin: 01/21/24 08:10 Dose: 1 cap Sodium Chloride (Sodium Chloride 0.9 % 10 Ml Syringe) 0 ml IV-PUSH PRN PRN PRN Reason: Flush Stop: 01/18/25 13:59 Last Admin: 01/20/24 20:11 Dose: 10 ml Vitamin D (Cholecalciferol 25 Mcg (1,000 Units) Tablet) 50 mcg PO DAILY [facility] Stop: 01/19/25 08:59 Last Admin: 01/21/24 08:10 Dose: 50 mcg Exam Physical Exam Vital Signs: Temp Pulse Resp BP Pulse Ox O2 Del Method 97.9 F 73 14 124/69 98 Room Air 01/21/24 11:56 01/21/24 11:56 01/21/24 11:56 01/21/24 11:56 01/21/24 11:56 01/21/24 11:58 Narrative: General: No acute distress Head :atraumatic normocephalic Eyes: PERRLA. Neck: no JVD no bruit. Heart: S1-S2. RRR Respiratory: Clear to auscultation. No wheezing. No crackles Abdomen: Soft, positive bowel sounds,no tenderness. Neurology: Awake alert oriented x3. No focal deficits Extremity. No cyanosis. No edema Skin: No skin rash Results - Nephrology Labs 01/21/24 05:40 01/21/24 05:40 Labs: 01/21/24 05:40 BUN 40 H Creatinine 2.83 H Radiology Impressions Impressions - last 24 hours: Impressions Renal Ultrasound 01/20/24 14:09 IMPRESSION : Bilateral mild pelvocaliectasis greater on the LEFT. Impression dictated by: Gary Castellano M.D.01/20/2024 7:01 PM Dictation Location: [place] [address] Any impression(s) listed above is documentation that was entered by the reading physician into a diagnostic report(s) for Patsy Cunningham. I have reviewed the report(s) and am incorporating any findings in the treatment plan of this patient where applicable. A&P - Nephrology Assessment/Plan (1) RINA (acute kidney injury): Plan: Patient presents with a creatinine 3.0 mg/dL. Sodium fractional excretion is 4.8%. Patient has mild bilateral pelvocaliectasis. Patient has been IV fluid since admission Ringer lactate 100 cc/h. 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 Baseline creatinine around 1.8 mg deciliter (3) Complicated urinary tract infection: Plan: Patient has bladder dysfunction from BPH. He has chronic suprapubic catheter. Urine cultures growing Klebsiella oxytoca. Currently Rocephin (4) Hydronephrosis: Plan: Ultrasound admission revealed mild bilateral pelvocaliectasis Plan * Acute kidney injury is either from ATN or post renal etiology since ultrasound showing bilateral pelviectasis. * There is no urgent need for renal placement therapy. * Patient continues to be oliguric. Will continue IV fluid at the current rate * I recommend urology consultation for bilateral hydronephrosis with worsening kidney function * Continue treating UTI as you are doing. Ceftriaxone is appropriate dose for current kidney function * Will check iron storage along with folate and vitamin B12. Continue to monitor H&H * Check CBC along with renal function panel in a.m. Documented By: Price Crain MD 01/21/24 1238 Signed By: <Electronically signed by Price Crain MD> 01/21/24 1247 [facility] Work Phone: [phone]) 926-547506-06-2024 Progress note Author Clarence Miller [facility] January 21, 2024 11:02am Note Date/Time January 21, 2024 10:48 am [facility] [address] [place] [address] Hospitalist Progress Note Signed Patient: Patsy Cunningham MR#: [id number] : 1945 Acct:[id number] Age/Sex: 78 / M Adm Date: 4 Loc: Room: [address] [place] [address] Type: ADM IN Attending Dr: Clarence Miller DO Copies to: ~ Date of Service: 01/21/2024 Subjective Subjective Narrative: Patient was seen and examined at bedside today. He has no new complaints. No further pain. Good urine output and his catheter bag. Less malaise overall. Intermittent bladder spasms. Physical Examination: GENERAL APPEARANCE: Alert, up in bed AAOx3 HEENT: NCAT, dry mucous membranes less severe than yesterday's examination NECK: Neck soft w/o masses, no JVD CARDIAC: Normal S1 and S2. No S3, S4 or murmurs. LUNGS: Clear to auscultation bilaterally. no wheeze/rhonchi/rales ABDOMEN: Positive bowel sounds. Soft, nontender. No guarding or signs of an acute abdomen MUSCULOSKELETAL: No joint erythema or tenderness. EXTREMITIES: No clubbing, cyanosis or edema SKIN: Skin normal color, texture and turgor with no lesions or eruptions. PSYCHIATRIC: Appropriate mood and affect Assessment and plan: 1. Complicated urinary tract infection with chronic suprapubic catheter 2. Leukocytosis 3. Acute kidney injury 4. Macrocytic anemia 5. Dehydration 6. Multiple Myeloma 7. Type 2 Diabetes mellitus 8. Coagulopathy 9. Hyponatremia 10. Non-Anion gap metabolic acidosis 11. 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 Slight improvement again with ongoing hydration. Suspect a component of acute tubular necrosis from prolonged period of dehydration. Continue to treat infection. Appreciate nephrology recommendations. Will consult urology for findings on renal ultrasound of bilateral pelvocaliectasis. Patient follows with [facility] Dr. Lane most recently and has a complex urologic history prior to that including a UroLift procedure, TURP at [facility] July 2022, indwelling Bond catheter, multiple kidney stones recurrent UTIs and eventual suprapubic catheter which he reports was due to be replaced fairly soon as an outpatient. He also has a complex history of stage IIIa IgG kappa myeloma complicated by light chain nephropathy. Furthermore he was once on hemodialysis in 2019 for severe disease temporarily with relatively quick resolution and normal baseline creatinine levels by the latter part of 2019. It seems he has been off of Revlimid and chemotherapies for over a year now for absence of paraproteinemia. Ongoing multifactorial anemia. Exam Physical Exam Vital Signs: Temp Pulse Resp BP Pulse Ox O2 Del Method 98.0 F 88 18 171/95 H 98 Room Air 01/21/24 03:59 01/21/24 08:00 01/21/24 08:00 01/21/24 08:00 01/21/24 08:00 01/21/24 08:00 Objective Lab Results 01/21/24 05:40 01/21/24 05:40 Microbiology Results Microbiology 01/19/24 15:05 Urine - Clean-Voided Midstream Urine Culture - Final Klebsiella oxytoca 01/19/24 15:36 Blood - Left Forearm Blood Culture - Preliminary No Growth 1 Day 01/19/24 14:53 Blood - Left Antecubital Blood Culture - Preliminary No Growth 1 Day Meds Allergies and Active Meds Allergies gabapentin Allergy (Unknown, Verified 01/19/24 14:00) Rash lisinopril Allergy (Unknown, Verified 01/19/24 14:00) DRY COUGH mirabegron [From Myrbetriq] Adverse Reaction (Verified 01/19/24 14:00) Diarrhea Active Meds: Active Medications Generic Name Dose Route Start Last Admin Trade Name Freq PRN Reason Stop Dose Admin Acetaminophen 650 mg 01/20/24 01:02 01/20/24 20:11 Acetaminophen 325 Mg Tablet PO 01/19/25 01:01 650 mg Q6HR PRN Administration bladder pain Aspirin 81 mg 01/20/24 09:00 01/21/24 08:10 Aspirin 81 Mg Tablet. PO 01/19/25 08:59 81 mg DAILY EMMA Administration Atorvastatin Calcium 20 mg 01/20/24 09:00 01/21/24 08:10 Atorvastatin 20 Mg Tablet PO 01/19/25 08:59 20 mg DAILY EMMA Administration Docusate Sodium 100 mg 01/20/24 09:00 01/21/24 08:10 Docusate 100 Mg Capsule PO 01/19/25 08:59 100 mg DAILY EMMA Administration Famotidine 20 mg 01/20/24 09:00 01/21/24 08:10 Famotidine 20 Mg Tablet PO 01/19/25 08:59 20 mg DAILY EMMA Administration Heparin Sodium (Porcine) 5,000 unit 01/21/24 09:00 01/21/24 09:19 Heparin 5,000 Unit/Ml Vial SUBCUT 01/20/25 08:59 5,000 unit Q12HR EMMA Administration Lactated Ringer's 1,000 mls @ 100 mls/hr 01/19/24 19:45 01/21/24 05:17 Lactated Ringers IV 01/18/25 19:44 100 mls/hr .Q10H EMMA Administration Ceftriaxone Sodium 2 gm in 50 mls @ 100 mls/hr 01/20/24 20:00 01/20/24 20:49 Rocephin IV Infused Q24H [facility]MA Infusion Insulin Aspart 8 units 01/20/24 07:30 01/21/24 08:42 Insulin Aspart 300 Units/3 Ml Insuln.Pen SUBCUT 01/19/25 07:29 8 units TID.AC EMMA Administration Insulin Glargine 45 units 01/19/24 22:00 01/20/24 22:21 Insulin Glargine 300 Units/3 Ml Insuln.Pen SUBCUT 01/18/25 21:59 45 units QHS EMMA Administration Lact Acid/Bifidobact/Lact Paracas/Streptoc Th 1 cap 01/20/24 09:00 01/21/24 08:10 L. Acidophilus/Strept/La P-Frank 1 Cap Capsule PO 01/19/25 08:59 1 cap DAILY EMMA Administration Sodium Chloride 0 ml 01/19/24 14:00 01/20/24 20:11 Sodium Chloride 0.9 % 10 Ml Syringe IV-PUSH 01/18/25 13:59 10 ml PRN PRN Administration Flush Vitamin D 50 mcg 01/20/24 09:00 01/21/24 08:10 Cholecalciferol 25 Mcg (1,000 Units) Tablet PO 01/19/25 08:59 50 mcg DAILY EMMA Administration A&P - Hospitalist Assessment/Plan (1) Complicated urinary tract infection: Plan As above Documented By: Clarence Miller DO 01/21/24 10 48 Signed By: <Electronically signed by Clarence Miller DO> 01/21/24 3754 [facility] Work Phone: [phone]) [phone] Progress note Author Clarence Miller [facility] January 20, 2024 4:33pm Note Date/Time January 20, 2024 4:19p [facility] [address] [place] [address] Hospitalist Progress Note Signed Patient: Patsy Cunningham MR#: [id number] : 1945 Acct:[id number] Age/Sex: 78 / M Adm Date: 4 Loc: Room: [address] [place] [address] Type: ADM IN Attending Dr: Clarence Miller DO Copies to: ~ Date of Service: 01/20/2024 Subjective Subjective Narrative: Patient was seen and examined at bedside today. He is sitting up and states he feels better without any major complaints. No abdominal pain, flank pain, nausea or vomiting. Less malaise overall. Intermittent bladder spasms. Physical Examination: GENERAL APPEARANCE: Alert, up in bed AAOx3 HEENT: NCAT, dry mucous membranes less severe than yesterday's examination NECK: Neck soft w/o masses, no JVD CARDIAC: Normal S1 and S2. No S3, S4 or murmurs. LUNGS: Clear to auscultation bilaterally. no wheeze/rhonchi/rales ABDOMEN: Positive bowel sounds. Soft, nontender. No guarding or signs of an acute abdomen MUSCULOSKELETAL: No joint erythema or tenderness. EXTREMITIES: No clubbing, cyanosis or edema SKIN: Skin normal color, texture and turgor with no lesions or eruptions. PSYCHIATRIC: Appropriate mood and affect Assessment and plan: 1. Complicated urinary tract infection with chronic suprapubic catheter 2. Leukocytosis 3. Acute kidney injury 4. Macrocytic anemia 5. Dehydration 6. Multiple Myeloma 7. Type 2 Diabetes mellitus 8. Coagulopathy 9. Hyponatremia 10. Non-Anion gap metabolic acidosis Patient serum creatinine has improved only minimally. He is on sepsis dosing ofceftriaxone with urine cultures showing Klebsiella oxytoca. Awaiting sensitivities. His mild leukocytosis is gradually downtrending. He clinically is less dehydrated appearing but mucous membranes are still slightly dry in appearance and will continue IV fluid. He appears to be baseline CKD stage IIIb. Follows with nephrology for this. Patient will feeling unwell, dehydrated and dizzy for at least 1 week possibly over 2 weeks. Subsequently his prerenal injury may have been prolonged and represent acute tubular necrosis. Rule out acute postobstructive injury with renal ultrasound. Maintain fluids. Consult nephrology for further recommendations. Chronically abnormal urinalysis with not just infection but also proteinuria and hematuria. Urology not on-call today but is on service tomorrow should have their services be needed. Tylenol for bladder spasms. Relative contraindication for Pyridium with renal function. Frequency of Tylenol can be increased. Oxybutynin remains on hold. Can consider Flomax as well. Notable mild coagulopathy with INR 1.3. Will trend. Mild hyponatremia and non-anion gap metabolic acidosis have improved. Exam Physical Exam Vital Signs: Temp Pulse Resp BP Pulse Ox O2 Del Method 98.4 F 78 18 150/68 H 97 Room Air 01/20/24 12:00 01/20/24 12:00 01/20/24 12:00 01/20/24 12:00 01/20/24 12:00 01/20/24 12:00 Objective Lab Results 01/20/24 10:23 01/20/24 10:23 Microbiology Results Microbiology 01/19/24 15:36 Blood - Left Forearm Blood Culture - Preliminary No Growth 1 Day 01/19/24 14:53 Blood - Left Antecubital Blood Culture - Preliminary No Growth 1 Day 01/19/24 15:05 Urine - Clean-Voided Midstream Urine Culture - Preliminary Klebsiella oxytoca 01/19/24 15:18 Stool Stool Occult Blood (DEEPA) - Final Meds Allergies and Active Meds Allergies gabapentin Allergy (Unknown, Verified 01/19/24 14:00) Rash lisinopril Allergy (Unknown, Verified 01/19/24 14:00) DRY COUGH mirabegron [From Myrbetriq] Adverse Reaction (Verified 01/19/24 14:00) Diarrhea Active Meds: Active Medications Generic Name Dose Route Start Last Admin Trade Name Freq PRN Reason Stop Dose Admin Acetaminophen 650 mg 01/20/24 01:02 01/20/24 08:25 Acetaminophen 325 Mg Tablet PO 01/19/25 01:01 650 mg Q6HR PRN Administration bladder pain Aspirin 81 mg 01/20/24 09:00 01/20/24 08:25 Aspirin 81 Mg Tablet. PO 01/19/25 08:59 81 mg DAILY EMMA Administration Atorvastatin Calcium 20 mg 01/20/24 09:00 01/20/24 08:25 Atorvastatin 20 Mg Tablet PO 01/19/25 08:59 20 mg DAILY EMMA Administration Docusate Sodium 100 mg 01/20/24 09:00 01/20/24 08:26 Docusate 100 Mg Capsule PO 01/19/25 08:59 100 mg DAILY EMMA Administration Famotidine 20 mg 01/20/24 09:00 01/20/24 08:26 Famotidine 20 Mg Tablet PO 01/19/25 08:59 20 mg DAILY EMMA Administration Lactated Ringer's 1,000 mls @ 100 mls/hr 01/19/24 19:45 01/20/24 08:26 Lactated Ringers IV 01/18/25 19:44 100 mls/hr .Q10H EMMA Administration Ceftriaxone Sodium 2 gm in 50 mls @ 100 mls/hr 01/20/24 20:00 Rocephin IV Q24H EMMA Insulin Aspart 8 units 01/20/24 07:30 01/20/24 11:48 Insulin Aspart 300 Units/3 Ml Insuln.Pen SUBCUT 01/19/25 07:29 Not Given TID.AC EMMA Insulin Glargine 45 units 01/19/24 22:00 01/19/24 23:30 Insulin Glargine 300 Units/3 Ml Insuln.Pen SUBCUT 01/18/25 21:59 45 units QHS EMMA Administration Lact Acid/Bifidobact/Lact Paracas/Streptoc Th 1 cap 01/20/24 09:00 01/20/24 08:26 L. Acidophilus/Strept/La P-Frank 1 Cap Capsule PO 01/19/25 08:59 1 cap DAILY EMMA Administration Sodium Chloride 0 ml 01/19/24 14:00 Sodium Chloride 0.9 % 10 Ml Syringe IV-PUSH 01/18/25 13:59 PRN PRN Flush Vitamin D 50 mcg 01/20/24 09:00 01/20/24 08:26 Cholecalciferol 25 Mcg (1,000 Units) Tablet PO 01/19/25 08:59 50 mcg DAILY EMMA Administration A&P - Hospitalist Assessment/Plan (1) Complicated urinary tract infection: Plan As above Documented By: Clarence Miller DO 01/20/24 16 07 Signed By: <Electronically signed by Clarence Miller DO> 01/20/24 1633 [facility] Work Phone: 1(810) 226-813006-05-2024 History and physical note Author Clarence Miller [facility] January 20, 2024 10:25am Note Date/Time January 19, 2024 6:38p m [facility] [address] [place] [address] Hospitalist H&P Signed Patient: Patsy Cunningham MR#: [id number] : 1945 Acct:[id number] Age/Sex: 78 / M Adm Date: 4 Loc: Room: [address] [place] [address] Type: ADM IN Attending Dr: Clarence Miller DO Copies to: DO Helen Noel MD~ [facility] DATE OF EXAMINATION: 01/19/24 CHIEF COMPLAINT: Weakness HISTORY OF PRESENT ILLNESS: This patient is a 78-year-old male with a chronic suprapubic catheter who presented to the emergency department today concerned of infected catheter. Describes generalized weakness, fatigue lightheadedness and chills. On arrival to the emergency department blood pressure was 127/68, respirations 20/min, heart rate 76 bpm, afebrile 97.7 ?F, 100 and oxygen saturation on room air. Urinalysis was slightly suggestive of infection with 4+ bacteria, WBCs, 3+ occult blood. CBC showed borderline leukocytosis 11.1, H&H 8.5/25.3%. Platelets 181. Chemistries show hyponatremia 133, 19.3, non-anion gap metabolicacidosis. Acute kidney injury BUN/creatinine 47/3.07. Glucose 133. Patient was started empirically on Rocephin after blood cultures and urine cultures weresent. He was admitted to the [facility] floor for treatment of complicated UTI andacute kidney injury. On arrival to the [facility] floor the patient is calm appearing in no distress. Denies any abdominal pain and reports overall malaise and fatigue, poor appetite. States he does not normally drink very much water due to lack of taste. Physical Examination: GENERAL APPEARANCE: Alert, up in bed AAOx3 HEENT: NCAT, dry mucous membranes NECK: Neck soft w/o masses, no JVD CARDIAC: Normal S1 and S2. No S3, S4 or murmurs. LUNGS: Clear to auscultation bilaterally. no wheeze/rhonchi/rales ABDOMEN: Positive bowel sounds. Soft, nontender. No guarding or signs of an acute abdomen MUSCULOSKELETAL: No joint erythema or tenderness. EXTREMITIES: No clubbing, cyanosis or edema SKIN: Skin normal color, texture and turgor with no lesions or eruptions. PSYCHIATRIC: Appropriate mood and affect Assessment and plan: 1. Complicated urinary tract infection with chronic suprapubic catheter 2. Leukocytosis 3. Acute kidney injury 4. Macrocytic anemia 5. Dehydration 6. Multiple Myeloma 7. Type 2 Diabetes mellitus Patient received 1 g of IV Rocephin. He is feeling better in response to this but failed outpatient treatment. While not septic at the moment he is dehydrated with acute kidney injury and has indwelling device with history of urinary tract infections. Subsequently I have ordered an additional 1 g of Rocephin for a total 2 g dose given his complexity. Appears clinically dehydrated and IV fluids will be run overnight. Follow kidney function and if no improvement undoubtedly will need imaging to rule out postrenal obstruction he has no flank pain and unremarkable examination. Review of Systems Review of Systems All other systems reviewed & are negative unless noted below or in HPI [facility] Medical History (Updated 01/19/24 @ 21:16 by Clarence Miller DO) Suprapubic catheter BPH (benign prostatic hyperplasia) Sepsis Multiple myeloma Apnea Skin cancer Arthritis Kidney stones Diabetes mellitus, type 2 Hyperlipidemia Hypertension Surgical History (Updated 01/19/24 @ 19:07 by Vania Seals RN) S/P TURP Family History Sister Myocardial infarction Mother Myocardial infarction Father Skin cancer Brother Hypertension Legacy FamHx Relation: Brother(s) Diabetes Legacy FamHx Relation: Brother(s) Father Cancer Legacy FamHx Problem: Diagnosed with Cancer Family/Other Legacy FamHx Problem: 1 SISTER KIDNEY STONES, SEPSIS Mother History of stroke Legacy FamHx Problem: Diagnosed with Stroke Social History Smoking Status: Never smoker Tobacco Type: cigarettes Substance Use Type: None Meds Medications and Allergies Allergies gabapentin Allergy (Unknown, Verified 01/19/24 14:00) Rash lisinopril Allergy (Unknown, Verified 01/19/24 14:00) DRY COUGH mirabegron [From Myrbetriq] Adverse Reaction (Verified 01/19/24 14:00) Diarrhea Home Medications atorvastatin 20 mg tablet 20 mg PO DAILY 10/15/20 [History Confirmed 01/19/24] aspirin 81 mg tablet,delayed release 81 mg PO DAILY 11/26/20 [History Confirmed 01/19/24] metformin 500 mg tablet 500 mg PO BID 11/26/20 [History Confirmed 01/19/24] oxybutynin chloride 5 mg tablet 10 mg PO BID 07/28/22 [History Confirmed 01/19/24] famotidine 20 mg tablet 20 mg PO DAILY 09/03/22 [History Confirmed 01/19/24] losartan 25 mg tablet 25 mg PO DAILY 10/01/23 [History Confirmed 01/19/24] Lactobacillus combo no.23 14 billion cell capsule (Suleman Probiotic) See Rx Instructions PO .once a day 10/26/23 [History Confirmed 01/19/24] cholecalciferol (vitamin D3) 50 mcg (2,000 unit) capsule 50 mcg PO DAILY 10/26/23 [History Confirmed 01/19/24] docusate sodium 100 mg capsule (Stool Softener) 100 mg PO DAILY 10/26/23 [History Confirmed 01/19/24] insulin glargine 100 unit/mL (3 mL) subcutaneous pen (Lantus Solostar U-100 Insulin) 45 unit subcut QHS 10/26/23 [History Confirmed 01/19/24] insulin lispro 100 unit/mL subcutaneous pen (Humalog KwikPen (U-100) Insulin) 8 unit subcut TID.AC 10/26/23 [History Confirmed 01/19/24] iron bis glycinate lashon 28 mg iron-vit C 60 mg-FA 400 mcg-B12 8mcg cap (Gentle Iron) 1 cap PO QDAY 10/26/23 [History Confirmed 01/19/24] multivitamin (Daily Multi-Vitamin tablet) 1 tab PO DAILY 10/26/23 [History Confirmed 01/19/24] nitrofurantoin macrocrystal 100 mg capsule 100 mg PO QHS PRN infection 10/26/23 [History Confirmed 01/19/24] acetaminophen 325 mg tablet (Tylenol) 650 mg PO Q6HR PRN bladder pain 01/20/24 [History Confirmed 01/20/24] Exam Physical Exam Vital Signs: Temp Pulse Resp BP Pulse Ox O2 Del Method 97.7 F 67 18 134/75 100 Room Air 01/19/24 13:47 01/19/24 18:10 01/19/24 18:10 01/19/24 18:10 01/19/24 18:10 01/19/24 18:10 Results - Hospitalist H&P Lab Results Labs: Laboratory Last Values Corrected WBC 11.1 X10E3/uL (4.1-10.5) H 01/19/24 14:53 Uncorrected WBC Count 11.1 x10E3/uL (4.1-10.5) H 01/19/24 14:53 RBC 2.35 X10E6/uL (3.90-5.60) L 01/19/24 14:53 Hgb 8.5 g/dL (13.0-17.0) L 01/19/24 14:53 Hct 25.3 % (38.8-50.0) L 01/19/24 14:53 MCV 107.7 fl (83.5-101) H 01/19/24 14:53 MCH 36.1 pg (27.5-35.2) H 01/19/24 14:53 MCHC 33.6 g/dL (32.5-35.6) 01/19/24 14:53 RDW 16.5 % (12.0-14.8) H 01/19/24 14:53 Plt Count 181 x10E3/uL (150-450) 01/19/24 14:53 MPV 8.0 fl (6.6-10.1) 01/19/24 14:53 Neut % (Auto) 83.8 % (.) 01/19/24 14:53 Lymph % (Auto) 6.9 % (.) 01/19/24 14:53 [place]illas % (Auto) 7.0 % (.) 01/19/24 14:53 Eos % (Auto) 2.0 % (.) 01/19/24 14:53 Baso % (Auto) 0.3 % (.) 01/19/24 14:53 Nucleat RBC Rel Count 0.0 /100 WBC (0-0.5) 01/19/24 14:53 Neut # (Auto) 9.3 x10E3/uL (1.8-7.7) H 01/19/24 14:53 Lymph # (Auto) 0.8 x10E3/uL (1.00-4.8) L 01/19/24 14:53 [place] # (Auto) 0.8 x10E3/uL (0.0-0.8) 01/19/24 14:53 Eos # (Auto) 0.2 x10E3/uL (0.0-0.45) 01/19/24 14:53 Baso # (Auto) 0.0 x10E3/uL (0.0-0.2) 01/19/24 14:53 Monocyte Dist Width 23.65 % (0.00-20.00) H 01/19/24 14:53 PT 15.2 Seconds (9.0-12.9) H 01/19/24 14:53 INR 1.3 01/19/24 14:53 APTT 24.2 Seconds (25.1-36.5) L 01/19/24 14:53 PHA Creatinine Clear 22.52 01/19/24 14:53 Sodium 133 mmol/L (136-145) L 01/19/24 14:53 Potassium 4.4 mmol/L (3.5-5.1) 01/19/24 14:53 Chloride 105 mmol/L (98-107) 01/19/24 14:53 Carbon Dioxide 19.3 mmol/L (21.0-31.0) L 01/19/24 14:53 Anion Gap 13.1 mEq/L (6.0-15.0) 01/19/24 14:53 BUN 47 mg/dL (7-25) H 01/19/24 14:53 Creatinine 3.07 mg/dL (0.70-1.30) H 01/19/24 14:53 Est GFR (CKD-EPI) 20.051 mL/Min 01/19/24 14:53 Glucose 133 mg/dL (70-100) H 01/19/24 14:53 Lactic Acid 0.8 mmol/L (0.5-2.2) 01/19/24 14:53 Calcium 9.2 mg/dL (8.6-10.3) 01/19/24 14:53 Total Bilirubin 0.5 mg/dl (0.3-1.0) 01/19/24 14:53 AST 15 U/L (13-39) 01/19/24 14:53 ALT 13 U/L (7-52) 01/19/24 14:53 Alkaline Phosphatase 83 U/L (34-104) 01/19/24 14:53 Troponin I High Sens 10.8 pg/mL (0.0-20.0) 01/19/24 14:53 B-Natriuretic Peptide 125.0 pg/mL (5-100) H 01/19/24 14:53 Total Protein 6.4 gm/dL (6.4-8.9) 01/19/24 14:53 Albumin 3.4 gm/dL (3.5-5.7) L 01/19/24 14:53 Globulin 3.0 gm/dL 01/19/24 14:53 Albumin/Globulin Ratio 1.1 01/19/24 14:53 Free T4 0.89 ng/dL (0.61-1.12) 01/19/24 14:53 Free T4 Cancelled 01/19/24 14:53 TSH 3rd Generation 0.17 uIU/mL (0.45-5.33) L 01/19/24 14:53 TSH 3rd Generation Cancelled 01/19/24 14:53 Urine Color Craven (Yellow) A 01/19/24 15:05 Urine Appearance Turbid (Clear) A 01/19/24 15:05 Urine pH 6.0 (5.0-9.0) 01/19/24 15:05 Ur Specific [place] 1.013 (1.001-1.030) 01/19/24 15:05 Urine Protein 200 mg/dL (Negative) H 01/19/24 15:05 Urine Glucose (UA) Normal mg/dL (Normal) 01/19/24 15:05 Urine Ketones Negative (Negative) 01/19/24 15:05 Urine Occult Blood 3+ (Negative) H 01/19/24 15:05 Urine Nitrite Negative (Negative) 01/19/24 15:05 Urine Bilirubin Negative (Negative) 01/19/24 15:05 Urine Urobilinogen Normal mg/dL (Normal) 01/19/24 15:05 Ur Leukocyte Esterase 4+ (Negative) H 01/19/24 15:05 Urine RBC 20-49 /HPF (0-4) H 01/19/24 15:05 Urine WBC Innumerable /HPF (0-4) H 01/19/24 15:05 Urine WBC Clumps Many /LPF (None Seen) H 01/19/24 15:05 Ur Squamous Epith Cells 5-9 /HPF (0-2) H 01/19/24 15:05 Urine Bacteria 4+ /HPF (None Seen) H 01/19/24 15:05 Hyaline Casts None /LPF (0-8) 01/19/24 15:05 Microbiology Results Micro: Microbiology - Results from entire visit 01/19/24 15:18 Stool Stool Occult Blood (DEEPA) - Final Assessment & Plan Assessment/Plan (1) Complicated urinary tract infection: Plan As above IP vs OBS Justification Based on differential dx, clinical care plan, and risk of adverse events, if untreated, in my clinical judgement this patient requires an acute care setting as: INPATIENT because of an expectation of an over 2 midnight stay. Estimated length of stay (# of days): 3 Documented By: Clarence Miller DO 01/19/24 18 35 Signed By: <Electronically signed by Clarence Miller DO> 01/20/24 [facility] Work Phone: 1(257) 398-464012-06-2023 Hospital Discharge instructions Patient Education 07/22/2023 10:06:20 [...] Follow these instructions at home: Medicines Take aurs-wlv-ceztnbl and prescription medicines only as told by [...] actions to prevent or treat constipation: ?Take ossy-oeq-fgdnjxs or prescription medicines. ?Eat foods that are [...] last for up to 1 week. Take mlzz-kpt-unwoxfx and prescription medicines only as told by [...] provider. Document Revised: 09/08/2022 Document Reviewed: 09/08/2022 [employer] Patient Education 2022 [employer] 07/22/2023 10:06:01 Suprapubic Catheter Replacement Suprapubic Catheter Replacement Suprapubic catheter replacement is a procedure to remove an old catheter and insert a new, clean catheter. A suprapubic catheter is a rubber tube that drains urine from the bladder into a collection bag outside the body. The catheter is inserted into the bladder through a small opening in the lowerabdomen, near the center of the body, above [...] to start flowing through the catheter. When thishappens, a syringe will be used to fill [...] is straight and without kinks. ?Wrap an damon bandage gently over the tubing and around [...] valve (spigot) at the bottom of the bagto empty the urine. ?Do not touch the opening of the spigot. ?Do not let the opening touch the toilet or container. Close the spigot tightly when the bag is empty. Cleaning the collection bag Wash your hands with soap and water. If soap and water are not available, use hand patient access registrar. Disconnect the bag from the catheter and immediately attach a new bag to the catheter. Empty the used bag completely. Clean the used bag according to the hide house supervisor's instructions, or as told by your health care provider. Let the bag dry completely, and put it in a clean plastic bag before storing it. General instructions Always wash your hands before and after caring for your catheter and collection bag. Use soap and water. If soap and water are not available, use hand patient access registrar. Always make sure there are no leaks in the catheter or collection bag. Drink enough fluid to keep your urine pale yellow. If you were prescribed an antibiotic medicine, take it as told by your health care provider. Do notstop taking the antibiotic even if you start [...] provider. Document Revised: 06/10/2022 Document Reviewed: 06/10/2022 [employer] Patient Education 2022 [employer]. Follow Up Care 07/02/2023 11:48:56 With:Diego RICKS, Orquidea Taylor, URL, URO Address: [address], [place] [address]- [phone] When: Unknown Comments:SPT/R stent exchange with 100u of Botox in Sep 2023 [facility] 10-12-2023 Evaluation + Plan note Diagnostic Tests Pending * Urine Culture 05/28/23 [facility]09-29-2023 Hospital Discharge instructions Patient Education 05/15/2023 16:14:46 [...] You may also have very sensitive muscles thatmake your bladder squeeze too soon. This condition [...] your health care provider. General instructions Take qdcs-oon-iogusja and prescription medicines only as told by your health care provider. If you were prescribed an antibiotic medicine, take it as told by your health care provider. Do notstop taking the antibiotic even if you start [...] provider. Document Revised: 04/22/2021 Document Reviewed: 04/22/2021 [employer] Patient Education 2022 [employer]. Follow Up Care 04/17/2023 11:27:09 With:Diego RICKS, OUSMANE Bell, URO Address: [address], [place] [address] [phone] When: Unknown Comments:-KUB-sched cysto/R stent exchange and L ESWL and SPT change [facility] 06-30-2023 Hospital Discharge instructions Patient Education 02/13/2023 09:54:27 [...] about 300 mg of calcium at each meal.Foods that contain 200 500 mg of calcium a serving include: ?8 oz (237 mL) of milk, dwybbku-qildenidjljz-qdovf milk, and calcium- fortifiedfruit juice. Calcium-fortified means that calcium has been [...] the table and allow each person to addhis or her own salt to taste. Use vegetable protein, such as beans, textured vegetable protein (TVP), or tofu, instead of meat inpasta, casseroles, and soups. Meal planning Eat less salt, if told by your dietitian. To do this: ?Avoid eating processed or pre-made food. ?Avoid eating fast food. Eat less animal protein, including cheese, meat, poultry, or fish, if told by your dietitian. To dothis: ?Limit the number of times you have [...] ?Spinach (cooked), rhubarb, beets, sweet potatoes, and Surinamese chard. ?Peanuts. ?Potato chips, romansh fries, and baked potatoes with skin on. ?Nuts and nut products. ?Chocolate. If you regularly take a diuretic medicine, make sure to eat at least 1 or 2 servings of fruits or vegetables that are high in potassium each day. These include: ?Avocado. ?Banana. ?Craven, prune, carrot, or tomato juice. ?Baked potato. [...] taking daily supplements. You may be told thefollowing depending on your health and the cause of your kidney stones: ?Not to take supplements with vitamin C. ?To take a calcium supplement. ?To take a daily probiotic supplement. ?To take other supplements such as magnesium, fish oil, or vitamin B6. Take pwpy-jtl-voptmea and prescription medicines only as told by [...] Casseroles. Pizza. Lasagna. Frozen meals. Potato chips. Latvian fries. The items listed above may not be a complete list of foods and beverages you should limit. Contact a dietitian for more information. What foods should I avoid? Talk to your dietitian about specific foods you should avoid based on the type of kidney stones youhave and your overall health. Fruits Grapefruit. The item listed above may not be a complete list of foods and beverages you should avoid. Contact adietitian for more information. Summary Kidney stones are [...] provider. Document Revised: 04/14/2022 Document Reviewed: 04/14/2022 [employer] Patient Education 2022 [employer]. Follow Up Care 01/16/2023 10:55:40 With:Diego RICKS, OUSMANE Bell, URO Address: When: Unknown [facility] 06-28-2023 Instructions* Patient Instructions* Yocasta Garcias APRN.[facility] - 02/11/2023 1:04 PM EDT PATIENT PREOPERATIVE INSTRUCTIONS Jessica Carreon MD has scheduled you for your procedure at this surgery center: [facility]: [phone] --[address] [place] [address]. Please read below carefully for your personalized [...] Procedures: - YOU MUST HAVE A RESPONSIBLE DIGITAL FORENSIC ANALYST TAKE YOU HOME. A HEALTH PRACTICE MANAGER OR CLOSET BUILDER CANNOT BE MADE A RESPONSIBLE DIGITAL FORENSIC ANALYST. - We recommend that a responsible person stays with you overnight to take care of you. - You cannot stay in a hotel alone after outpatient surgery. You will not be permitted to have yoursurgery, if you do not have someone to [...] Advance Directive, please fax a copy to [phone] or email to for it to be added to your chart. If you do not have an Advance Directive, you can find the appropriate form and more information at [email or web address]. We recommend that youcomplete the Advance Directive form found on the website and bring it with you the day of your surgery. It can be witnessed and scanned into your chart that day. Yocasta Garcias APRN.WILFREDO documented in [facility] History and physical note * Yocasta Garcias APRN.CNP - 02/11/2023 12:29 PM EDT Images from the original note were not included. HISTORY AND PHYSICAL EXAMINATION SERVICE DATE: 02/11/2023 SERVICE TIME: 12:30 PM PRIMARY CARE PHYSICIAN: No primary care provider on file. REASON FOR VISIT: Patsy Cunningham is a 78 year old male who is scheduled for INSERTION CATHETER SUPRAPUBIC Laterality Anesthesia Op Region N/A Monitored Anesthesia Care Bladder Procedure: CYSTOSCOPY, INSERTION STENT URETERAL J at the request of Dr. Jessica Carreon for consultation. My final recommendation will be [...] fevers. Neuro: No history of TIA's, stroke, SIDE FRAMER tumor, impaired sensorium, hemiplegia, paraplegia or quadraplegia. No neurological symptoms or problems. Respiratory: Positive for Tobacco Use Former Smoker , History of RUDY s/p Uvulectomy Negative for Nohistory of current cough or dyspnea, or pneumonia in the past 6 weeks. No history of respiratory/pulmonary symptoms or problems Cardiovascular: Positive for: HLD, Hypertension no history of angina, CHF, [place], cardiac surgery or stents. Denies rest pain, [...] Gait normal. No weakness or sensory deficit. Walkswith cane at home Pulses: Carotid and radial pulses normal +2. Diagnostic tests reviewed for today's visit: CBC auto differential Order: [id number] Component Ref Range & Units 6 d [...] BASOPHILS 0.0 - 0.2 10*3/uL 0.0 Resulting [facility] Specimen Collected: 02/05/23 12:42 PM Last Resulted: 02/05/23 1:22 PM Received From: [facility] [employer] [facility]S Result Received: 02/11/23 12:13 PM Comprehensive metabolic panel Order: [id number] Component Ref Range & Units 6 d [...] CREATININE CLR [facility]C PHARMACY 51.98 Resulting Agency [facility] Specimen Collected: 02/05/23 12:42 PM Last Resulted: 02/05/23 4:22 PM Received From: [facility] Result Received: 02/11/23 12:13 PM Echocardiogram Narrative Performed by [facility], [address] [place] [address] and TRANSTHORACIC ECHOCARDIOGRAM REPORT Patient Name: PATSY Barron C[place] Reading Physician: [id number] Lj Diallo MD Study Date: 08/08/2020 Referring Physician: Zofia Tripp MD MRN/PID: [id number] PCP: Accession/Order#: [id number] Department Location: [place] [address] Date of : 1945 Fellow: Gender: M Nurse: Admit Date: 07/23/2020 Medical Coding Instructor: Sharifa Porter RDCS Admission Status: Inpatient - Additional Staff: Priority discharge Height: 172.72 cm CC Report to: [address] [place] [address] Weight: 83.92 kg Study Type: Echocardiogram BSA: 1.98 m2 Blood Pressure: 143 /64 mmHg Diagnosis/ICD: X85-Kdoljxbwuzzt, valve unspecified Indication: Vegetation Procedure/CPT: Echo Complete w Full Doppler-[id number] Patient History: Pertinent Stage III IgG [place] Multiple Myeloma, DM2, HTN, GERD, History: Neuropathy. [...] peak instantaneous gradient of the aortic valve is10.9 mmHg. Mitral Valve: The mitral valve is [...] Rate BPM 82 Atrial Rate BPM 82 AK Interval ms 164 QRS Duration ms 114 QT Interval ms 380 QTC Calculation(Bazett) ms 444 P [place] degrees 3 R [place] degrees 16 T [place] degrees 26 QRS Count beats 13 Q Onset ms 213 P Onset ms 131 P Offset ms 183 T Offset ms 423 QTC Fredericia ms 421 Resulting Agency [facility] Narrative Performed by [facility] Normal sinus rhythm Normal ECG Confirmed by LJ DIALLO MD ([id number]) on 08/26/2020 4:44:19 PM No results found for: HBA1C No new labs or tests Assessment/Plan HTN (hypertension) Assessment: stable on Lisinopril BP today 149/52 Hypercholesterolemia Assessment: stable on medication Benign prostatic hyperplasia with urinary obstruction Assessment: on Ditropan Stage 3 chronic kidney disease (HCC) Assessment: stable per last labs Creatinine 1.45 Diabetes ([facility]) Assessment: on oral medication and insulin BS this AM 68 States run from 60-240 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 Prostate cancer (HCC) Assessment: history of prostate CA s/p TURP No chemo or radiation Iron deficiency anemia Assessment: Following with Hematology Receiving Aranesp injections twice a month Rheumatoid arthritis ([facility]) Assessment: using OTC pain medication METS: Climb [...] SIGNATURE: Yocasta Garcias APRN.CNP PATIENT NAME: Patsy Cunningham DATE: February 11, 2023 TIME: 12:30 PM documented in this [facility]South[facility]06-[facility]-2023 Progress note Author Brook Huddleston [facility] January 23, 2023 8:59am Note Date/Time January 22, 2023 2:34p m [facility] [place] [address] Hem/Onc Follow Up Note - OP Signed Patient: Patsy Cunningham MR#: [id number] : 1945 Acct:[id number] Age/Sex: 77 / M Type: REG RCR [...] an upcoming urodynamics procedure with his urologist [facility] next week. He has persistent unchanged fatigue from prior visits. We had requested addition of Aranesp 200 mcg every 2weeks to improve his hemoglobin and fatigue: His is concerned that they receive Dilaudid is not covering and we are checking with our financial accountant as we proceed with approved. B12 and [...] TURP with Dr. Cortez of urology at [facility] with some improvement of his urinary [...] interval 1 month follow up; not much change management administrator the past 1 month - of note, [...] if symptoms improve. One month followup with [facility] to review labs and symptoms. He also has followup with Dr. Hall in one week and will inform him of plan for one month off Revlimid. He also may seek Urology second opinion. 05/23/2022: Noted to have Urolift procedure at [facility] last month, noted increased post-op pain that [...] of kidney stone by Dr. Seals at [facility] on 01/14/2022 without complications. Sent off Revlimid [...] protein electrophoresis or serum or urine immunofixation. [place]/lambda light chain ratio continues to decline to [...] He underwent a painful bone marrow by [facility] with Dr. Hall with nondiagnostic specimen. Dr. [...] 20 he was treated for UTI at [facility] ER, thenadmitted August 24 to [facility] with dehydration and urosepsis with discharge August 29. 09/05/[address] Heath for continued antibiotics with Bactrim DS. Urine also returned positive for candidiasis and he was treated with fluconazole daily. He stopped his hydralazine and Lasix. --09/17/2021: He returned for labs and skeletal survey at [facility] and his potassium on blood work was markedly elevated. We contacted him and advised ER evaluation at [facility]. His potassium returned at 7.3 and he [...] due for follow-up with Dr. Hall at [facility] hematology in late October for 1 year [...] bone marrow biopsy at [facility] on 10/18/2020. No evidence of MRD--0.5% plasma cells andno clonal plasma cells suggestive of residual myeloma. Tolerating maintenance Revlimid 5mg daily well. No bone pain and normal renal function--Dr. Vincent hasreleased for annual nephrology followup. He is fully vaccinated for [id number] and I contacted Dr. Hall for coordination [...] marrow biopsy--I briefly discussed Revlimidmaintenance with Mr. Cunningham and his . I will contact patient after bone marrow results to confirm plan with Dr. Hall and f/u with him in about 6 weeks with myeloma labs. 07/02/2020: Patsy has completed all of his pretransplant evaluation at [facility] including cardiology visit 06 25 which showed ejection fraction 60%. I have contacted Dr. Hall who noted that today will be his last day of Velcade and we will hold his daratumumab. He was to have a COVID-19 teston 07/11/2020 for planned stem cell collection 07/17 and transplant on 07/23. I clarified with the staff at [facility] this this may be performed at [facility] and forwarded to them. 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 His pain mainly in hips is about 3 out of 10 and controlled with Percocet. His next follow-up with me willlikely be in about 4 months when he [...] He was evaluated by Dr. Small at [facility] on 04/26/2020. Angel and his note [...] has remarkably improved (>90% reduction past month). [place] light chains decreased from 12,000 to 42. [...] marijuana and would discuss this with his rd manager whetherthis would interfere with dialysis. We will also follow closely for cytopenias and reviewed infectious precautions. He has a son from [place] who plans to visit on Thursday and [...] now 77-year-old male who was transferred from [facility] emergency room by [facility] due to critical potassium 8.7 [...] all negative and COVID-19 screening was negative. LROE, c-ANCA, p-ANCA, anti-GBM, and antimyeloperoxidase were all [...] day 0 autologous stem cell transplant 07/25/2020at [facility]. 11/26/2020: Follow-up bone marrow aspiration and biopsy 10/18/2020 for MRD evaluation shows hypocellular marrow with 0.5% plasma cells, no clonal population by flow cytometry but 0.03% kappa light chain skewing. Started Revlimid 5 mg daily for maintenance therapy early October 2020. Nondiagnostic bone marrow for MRD in spring 2021 at . Planned follow-up bone marrow biopsy for MRD at [facility] fall 2021. -- 02/05/2022: Revlimid on hold [...] TURP with Dr. Cortez of urology at [facility] 08/27/2022. 08/2022: Added Aranesp 200 mcg subcu [...] followed by Dr. Seals--recent ESWL 01/14/2022 at [facility]. Scheduled for urodynamic study at [facility] in mid January. ENDOCRINE: Negative for [...] Negative for environmental allergies and food allergies. [facility] - History Attestation statement: The following information [...] BUN 19, Creatinine 1.52 H, Est GFR (CKD- EPI) 46.902, Glucose 216 H, Calcium 8.4 L, [...] % (Auto) 72.9, Lymph % (Auto) 17.1, [place] % (Auto) 6.4, Eos % (Auto) 3.3, Baso % (Auto) 0.3, Nucleat RBC Rel Count 0.0, Neut # (Auto) 3.6, Lymph # (Auto) 0.9 L, [place] # (Auto) 0.3, Eos # (Auto) 0.2, [...] ULTRASOUNDSTUDY. 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 11/26/2020: Followup of [facility] end of therapy bone marrow biopsy 10/18/2020--no [...] Homocystine was normal methylmalonic acid is pending. [facility] also send an erythropoietin level to see if there may be a benefit to adding erythropoietin for anemia of chronic kidney disease. He will continue to follow with Dr. Meade. He still has no M spike on serum protein electrophoresis and normal kappa/lambda light chain ratio. MRD testing at [facility] was nondiagnostic and he will have [...] be scheduled for MRD bone marrow at [facility] interventional radiology in April 2022, then follow-up with me with review of myeloma labs 3 months after this procedure. He still has undetectablemonoclonal spike and normal kappa/lambda light chain ratio on most recent labs. Renal function is improving since ESWL at [facility] in late December. 05/23/2022: No new issues, [...] symptoms improved at one month followup with [facility], he will followup with me in one month with CBC, CMP, SPEP for monoclonal spike and kappa/lambda light chain ratio. 07/28/2022: Patsy is here for interval 1 month follow up; not much change management administrator the past 1 month - of note, [...] [facility]. [...] for MRD. Repeat MRD bone marrow at [facility] in 3 months because spring 2021 bone [...] interval 1 month follow up; not much change management administrator the past 1 month - of note, [...] for coordination of care (as documented) and fucl-to-dhqn counseling of patient and/or family. Dictated By: Brook Huddleston MD DD/ [id number] Signed By: <Electronically signed by MD Brook Huddleston> 01/23/23 0859 [facility] Work Phone: 1(906) 249-513806-05-2023 History of Present illness Narrative* Samir Aparicio MD - 01/19/2023 1:30 PM EDT VIRTUAL VISIT FOLLOW UP PATIENT: Patsy Cunningham [id number] 01/19/2023 I have communicated my name and active licensure. The patient's identity and physical location wereverified at the time of this visit. Either the patient or their legal auto service representative has been informed of the risks and benefits of -- and alternatives to -- treatment through a remote evaluation andconsents to proceed with the evaluation remotely. This is a virtual visit using [employer] Save video visit. It required patient-provider interaction for themedical decision making as documented below. Chief Complaint: Prostate Cancer History of Present Illness: Patsy Cunningham is a very pleasant 77 year old [...] chips involved. PSA 1.5) 10/2022- UDS at [facility]:42ml voided, Qmax 5ml/s, maximum detrusor recording 14 (unclear if this is w permission to void or if this represents poor compliance). 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 Carreon Per Dr. Taty Feliciano 01/07/23 visit- recommendation [...] neurogenic bladder, under the management of Dr Carreon This visit was conducted as a video visit I spent a total of 30 minutes on the date of the service which included preparing to see the patient, dwbc-cc-qioa patient care, completing clinical documentation, obtaining and/or reviewing separately obtained history, performing a medically appropriate examination, and counseling and educating the patient/family/caregiver. Samir Aparicio MD Urologic Staff [facility] [place] [facility] Evaluation note* Encounter Date Diagnosis Assessment Notes Treatment Notes Treatment Clinical Notes December, Hypophosphatemia (ICD-10 - E83.39) December, Hypertensive chronic kidney disease w stg 1-4/unsp chr kdny (ICD-10 - I12.9) [facility] Other [id number] Evaluation note* Encounter Date Diagnosis Assessment Notes Treatment Notes Treatment Clinical Notes December, Hypertensive chronic kidney disease w stg 1-4/unsp chr kdny (ICD-10 - I12.9) Blood pressure is well controlled. Patient is off hydralazine. He is not on DAMON or ARB.he has proteinuria. Will start lisinopril [...] . he has follow up with Dr. Mercado December, Hypophosphatemia (ICD-10 - E83.39) will start supplement. will re check Phos next visit [facility] Other 05-05-2023 Hospital Discharge instructions Patient Education 12/19/2022 09:55:29 [...] transplant. Follow these instructions at home: Take wfcy-lkb-hgtbqns and prescription medicines only as told by [...] provider. Document Revised: 11/20/2020 Document Reviewed: 11/20/2020 [place] Patient Education 2022 [employer]. Follow Up Care 12/11/2022 13:21:04 With:Diego RICKS, OUSMANE Bell, URO Address: When: Unknown [facility] 04-21-2023 Hospital Discharge instructions Patient Education 12/05/2022 [...] greater thelikelihood that the cancer will spread. Selene 6 or lower: This indicates that the cancer cells look similar to normal prostate cells (well differentiated). Eucha 7: This indicates that the cancer cells look somewhat similar to normal prostate cells (moderately differentiated). Selene 8, 9, or 10: This indicates that [...] stress of having cancer. General instructions Take rgfi-sqi-jjmvaee and prescription medicines only as told by your health care provider. If you have to go to the hospital, notify your cancer specialist (oncologist). Keep all follow-up visits. This is important. Where to find more information [employer]: www.cancer.org [place] Society of Clinical Oncology: www.cancer.net National Cancer [place]: www.cancer.gov Contact a health care provider if: [...] provider. Document Revised: 10/30/2021 Document Reviewed: 10/30/2021 [place] Patient Education 2022 [employer]. Follow Up Care 12/03/2022 13:58:34 With:Diego RICKS, OUSMANE Bell, URO Address: [address] [place] [address]- [phone] When: Unknown [facility] 03-20-2023 Hospital Discharge instructions Patient Education 11/03/2022 [...] who: Are older than age 65. Are -Thai. Are obese. Have a family history of [...] cells. Follow these instructions at home: Take yfub-xzp-azhagvo and prescription medicines only as told by [...] 08/03/2006 Document Revised: 07/16/2018 Document Reviewed: 04/13/2017 [place] Patient Education [employer]. Follow Up Care 10/21/2022 07:54:56 With:Diego RICKS, OUSMANE Bell, URO Address: When: Unknown [facility] 03-02-2023 Hospital Discharge instructions Patient Education 10/16/2022 11:31:15 [...] transplant. Follow these instructions at home: Take tivb-uuo-ehiofsj and prescription medicines only as told by [...] 05/30/2008 Document Revised: 08/14/2018 Document Reviewed: 08/14/2018 [place] Patient Education 2020 [employer]. Follow Up Care 10/15/2022 08:06:04 With:Diego RICKS, Orquidea [place], URL, URO Address: When: Unknown [facility] 02-01-2023 Progress note Author Brook Huddleston [facility] September 17, 2022 1:35pm Note Date/Time September 03, 2022 8 :57am [place] [address] Hem/Onc Follow Up Note - OP Signed with Addenda Patient: Patsy Cunningham MR#: [id number] : 1945 Acct:[id number] Age/Sex: 77 / M Type: REG RCR [...] TURP with Dr. Cortez of urology at [facility] with some improvement of his urinary [...] interval 1 month follow up; not much change management administrator the past 1 month - of note, [...] if symptoms improve. One month followup with [facility] CAPTAIN to review labs and symptoms. He also has followup with Dr. Hall in one week and will inform him of plan for one month off Revlimid. He also may seek Urology second opinion. 05/23/2022: Noted to have Urolift procedure at [facility] last month, noted increased post-op pain that [...] of kidney stone by Dr. Seals at [facility] on 01/14/2022 without complications. Sent off Revlimid [...] protein electrophoresis or serum or urine immunofixation. [place]/lambda light chain ratio continues to decline to [...] He underwent a painful bone marrow by [facility] CAPTAIN with Dr. Hall with nondiagnostic specimen. Dr. [...] 20 he was treated for UTI at [facility] ER, thenadmitted August 24 to [facility] with dehydration and urosepsis with discharge August 29. 09/05/[address] Heath for continued antibiotics with Bactrim DS. Urine also returned positive for candidiasis and he was treated with fluconazole daily. He stopped his hydralazine and Lasix. --09/17/2021: He returned for labs and skeletal survey at [facility] and his potassium on blood work was markedly elevated. We contacted him and advised ER evaluation at [facility]. His potassium returned at 7.3 and he [...] due for follow-up with Dr. Hall at [facility] malignant hematology in late October for [...] bone marrow biopsy at [facility] on 10/18/2020. No evidence of MRD--0.5% plasma cells andno clonal plasma cells suggestive of residual myeloma. Tolerating maintenance Revlimid 5mg daily well. No bone pain and normal renal function--Dr. iVncent hasreleased for annual nephrology followup. He is fully vaccinated for [id number] and I contacted Dr. Hall for coordination [...] marrow biopsy--I briefly discussed Revlimidmaintenance with Mr. Cunningham and his . I will contact patient after bone marrow results to confirm plan with Dr. Hall and f/u with him in about 6 weeks with myeloma labs. 07/02/2020: Patsy has completed all of his pretransplant evaluation at [facility] including cardiology visit 11 which showed ejection fraction 60%. I have contacted Dr. Hall who noted that today will be his last day of Velcadeand we will hold his daratumumab. He was to have a COVID-19 test on 07/11/2020 for planned stem cell collection 07/17 and transplant on 07/23. I clarified with the staff at [facility] this this may be performed at [facility] and forwarded to them. His neuropathy in [...] He was evaluated by Dr. Small at [facility] on 04/26/2020. Don and his note [...] has remarkably improved (>90% reduction past month). Millvale light chains decreased from 12,000 to 42. [...] marijuana and would discuss this with his rd manager whetherthis would interfere with dialysis. We will also follow closely for cytopenias and reviewed infectious precautions. He has a son from [place] who plans to visit on Thursday and [...] now 77-year-old male who was transferred from [facility] emergency room by [facility] due to critical [...] to be coordinated with nursing staffdue to [facility]- visitor restriction policy. - Summary of Therapies [...] day 0 autologous stem cell transplant 07/25/2020at [facility]. 11/26/2020: Follow-up bone marrow aspiration and biopsy 10/18/2020 for MRD evaluation shows hypocellular marrow with 0.5% plasma cells, no clonal population by flow cytometry but 0.03% kappa light chain skewing. Started Revlimid 5 mg daily for maintenance therapy early October 2020. Nondiagnostic bone marrow for MRD in spring 2021 at . Planned follow-up bone marrow biopsy for MRD at [facility] fall 2021. -- 02/05/2022: Revlimid on hold [...] TURP with Dr. Cortez of urology at [facility] 08/27/2022. ROS Details: All systems reviewed & [...] followed by Dr. Seals--recent ESWL 01/14/2022 at [facility]. ENDOCRINE: Negative for cold intolerance and heat [...] October 2021, repeat MRD bone marrow at [facility] April 2022, MRD aspirate sent 05/23/2022--Clonoseq returned [...] 0 scheduled 07/23/2020. His next follow-up with mi will be in about 4 months after he is completed day 100 transplant follow-up. He may return sooner as needed. 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 Melphalan 100mg/m2 + ASCT Day 0 07/25/2020. 11/26/2020: Followup of [facility] end of therapy bone marrow biopsy 10/18/2020--no [...] kappa/lambda light chain ratio. MRD testing at [facility] was nondiagnostic and he will have [...] be scheduled for MRD bone marrow at [facility] interventional radiology in April 2022, then follow-up with me with review of myeloma labs 3 months after this procedure. He still has undetectablemonoclonal spike and normal kappa/lambda light chain ratio on most recent labs. Renal function is improving since ESWL at [facility] in late December. 05/23/2022: No new issues, [...] symptoms improved at one month followup with [facility]ANQU[facility] CAPTAIN, he will followup with me in one month with CBC, CMP, SPEP for monoclonal spike and kappa/lambda light chain ratio. 07/28/2022: Patsy is here for interval 1 month follow up; not much change management administrator the past 1 month - of note, [...] for MRD. Repeat MRD bone marrow at [facility] in 3 months because spring 2021 bone [...] interval 1 month follow up; not much change management administrator the past 1 month - of note, [...] for coordination of care (as documented) and peus-lk-ytqn counseling of patient and/or family. Dictated By: Brook Huddleston MD DD/ [id number] Signed By: <Electronically signed by MD Brook Huddleston> 09/03/[facility] Work Phone: [phone]) 590-380101-12-2023 Hospital Discharge instructions Follow Up Care 08/28/2022 09:22:13 With:Diego RICKS, Orquidea [place] URL, URO Address: When:09/18/2022 11:27:00 Comments:Review TURP path [facility] 01-09-2023 Evaluation + Plan note Diagnostic Tests Pending * Urine Culture 08/25/22 [facility]12-12-2022 Progress note Author Rosie Chew [facility] July 28, 2022 10:58am Note Date/Time July 28, 2022 10:45am [facility] [place] [id number] Hem/Onc Follow Up Note - OP Signed Patient: Patsy Cunningham MR#: [id number] : 1945 Acct:[id number] Age/Sex: 77 / M Type: REG RCR Copies to: Helen Heath MD~ Subjective Date/Time of Service: Date of Service: 07/28/2022 Time of Service: 10:44 Chief Complaint: Patient is here today for one month follow up visit and go overlabs HPI: 07/28/2022: Patsy is here for interval 1 month follow up; not much change management administrator the past 1 month - of note, [...] if symptoms improve. One month followup with [facility]ANQU[facility] CAPTAIN to review labs and symptoms. He also has followup with Dr. Hall in one week and will inform him of plan for one month off Revlimid. He also may seek Urology second opinion. 05/23/2022: Noted to have Urolift procedure at [facility] last month, noted increased post-op pain that [...] of kidney stone by Dr. Seals at [facility] on 01/14/2022 without complications. Sent off Revlimid [...] protein electrophoresis or serum or urine immunofixation. [place]/lambda light chain ratio continues to decline to [...] He underwent a painful bone marrow by [facility] CAPTAIN with Dr. Hall with nondiagnostic specimen. Dr. [...] 20 he was treated for UTI at [facility] ER, thenadmitted August 24 to [facility] with dehydration and urosepsis with discharge August 29. 09/05/[address] Heath for continued antibiotics with Bactrim DS. Urine also returned positive for candidiasis and he was treated with fluconazole daily. He stopped his hydralazine and Lasix. --09/17/2021: He returned for labs and skeletal survey at [facility] and his potassium on blood work was markedly elevated. We contacted him and advised ER evaluation at [facility]. His potassium returned at 7.3 and he [...] due for follow-up with Dr. Hall at [facility] malignant hematology in late October for [...] bone marrow biopsy at [facility] on 10/18/2020. No evidence of MRD--0.5% plasma cells and no clonal plasma cells suggestive of residual myeloma. Tolerating maintenance Revlimid 5mg daily well. No bone pain and normal renal function--Dr. Vincent hasreleased for annual nephrology followup. He is fully vaccinated for [id number] and I contacted Dr. Hall for coordination [...] marrow biopsy--I briefly discussed Revlimidmaintenance with Mr. Cunningham and his . I will contact patient after bone marrow results to confirm plan with Dr. Hall and f/u with him in about 6 weeks with myeloma labs. 07/02/2020: Patsy has completed all of his pretransplant evaluation at [facility] including cardiology visit 11 9 which showed ejection fraction 60%. I have contacted Dr. Hall who noted that today will be his last day of Velcade and we will hold his daratumumab. He was to have a COVID-19 teston 07/11/2020 for planned stem cell collection 07/17 and transplant on 07/23. I clarified with the staff at [facility] this this may be performed at [facility] and forwarded to them. His neuropathy in [...] He was evaluated by Dr. Small at [facility] on 04/26/2020. Angel and his note [...] has remarkably improved (>90% reduction past month). Millvale light chains decreased from 12,000 to 42. [...] marijuana and would discuss this with his rd manager whetherthis would interfere with dialysis. We will also follow closely for cytopenias and reviewed infectious precautions. He has a son from [place] who plans to visit on Thursday and [...] but he may address this with our [facility] nutrition team. He will also receivechemotherapy class with our nurses in the infusion center. PRELIMINARY HISTORY (from initial consult 03/08/2020): This is a now 77-year-old male who was transferred from [facility] emergency room by [facility] due to critical potassium 8.7 [...] to be coordinated with nursing staffdue to [facility]-19 visitor restriction policy. - Summary of Therapies [...] day 0 autologous stem cell transplant 07/25/2020at [facility]. 11/26/2020: Follow-up bone marrow aspiration and biopsy 10/18/2020 for MRD evaluation shows hypocellular marrow with 0.5% plasma cells, no clonal population by flow cytometry but 0.03% kappa light chain skewing. Started Revlimid 5 mg daily for maintenance therapy early October 2020. Nondiagnostic bone marrow for MRD in spring 2021 at . Planned follow-up bone marrow biopsy for MRD at [facility] fall 2021. -- 02/05/2022: Revlimid on hold [...] followed by Dr. Seals--recent ESWL 01/14/2022 at [facility]. ENDOCRINE: Negative for cold intolerance and heat [...] Negative for environmental allergies and food allergies. [facility] - Medical History Medical History: Medical History [...] 35.7, U Random Total Protein 95.7, U Rdyzx-3-Udxfdgyu (%) 6.5, U Random y-1-Rfoumicp % 18.3, U Random b-Globulin % 20.8, U Random Gamma Glob % 18.6, U Random M-Anselmo (%) Comment:, Urine Random PEP Note 07/21/22 13:13: Serum Total Protein 5.9 L, Albumin (Send Out) 2.9, Globulin (PEP) 3.0, Albumin/Globulin (PEP) 1.0, Uwavj-7-Nvxaywxic 0.4, Zpfmf-1-Hmzprjubn 1.0, Beta Globulins 0.8, Gamma Globulins 0.8, M-Anselmo Comment:, PEP Note , IgG 905, IgA 208, IgM 24, Free Millvale LC, Quant 39.4 H, Free Lambda LC, Quant 24.3, Free [place]/Lambda Ratio 1.62 07/21/22 13:13: PHA Creatinine Clear [...] H, MCHC 34.0, RDW 17.1 H, Plt Ikbae298 L, MPV 8.3, Neut % (Auto) 70.5, Lymph % (Auto) 13.1, [place] % (Auto) 13.2, Eos% (Auto) 3.0, Baso % (Auto) 0.2, Nucleat RBC Rel Count 0.1, Neut # (Auto) 2.7, Lymph # (Auto) 0.5 L, [place] # (Auto) 0.5, Eos # (Auto) 0.1, Baso # (Auto) 0.0 Assessment and Plan - TNM Staging Staging: 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 11/26/2020: Followup of [facility] end of therapy bone marrow biopsy 10/18/2020--no [...] kappa/lambda light chain ratio. MRD testing at [facility] was nondiagnostic and he will have [...] be scheduled for MRD bone marrow at [facility] interventional radiology in April 2022, then follow-up with me with review of myeloma labs 3 months after this procedure. He still has undetectablemonoclonal spike and normal kappa/lambda light chain ratio on most recent labs. Renal function is improving since ESWL at [facility] in late December. 05/23/2022: No new issues, [...] symptoms improved at one month followup with [facility]ANQUET CAPTAIN, he will followup with me in one month with CBC, CMP, SPEP for monoclonal spike and kappa/lambda light chain ratio. 07/28/2022: Patsy is here for interval 1 month follow up; not much change management administrator the past 1 month - of note, [...] for MRD. Repeat MRD bone marrow at [facility] in 3 months because spring 2021 bone [...] interval 1 month follow up; not much change management administrator the past 1 month - of note, [...] for coordination of care (as documented) and tgiq-og-detd counseling of patient and/or family. Dictated By: Rosie Chew APRN DD/ [id number] Signed By: <Electronically signed by JACKIE Chew> 07/28/22 [address] [facility] Work Phone: 1([phone]) 205-980111-21-2022 Hospital Discharge instructions Patient Education 07/07/2022 18:01:00 [...] 100 degrees. Follow Up Care 07/04/2022 14:41:36 With:Orquidea Cortez Address:Unknown When: Unknown Comments:Bladder US, schedule TURP [facility]11-21-2022 Evaluation + Plan noteExtracted from: Title:[facility] Clinic Note Author:Orquidea Cortez MD . Date:07/07/22 Impression and Plan 77 yo M [...] Future Appointments Appointment Date:08/06/2022 10:00:00 AM Scheduled Provider:Orquidea Cortez MD Location:[facility] Appointment Type:URO Office Visit [facility]11-18-2022 Hospital Discharge instructions Patient Education 07/04/2022 10:59:43 [...] urethra. Follow these instructions at home: Take bqxy-lzx-dgkyzxv and prescription medicines only as told by [...] 08/03/2006 Document Revised: 06/28/2019 Document Reviewed: 09/07/2017 [place] Patient Education 2020 [employer]. Follow Up Care 07/01/2022 09:13:44 With:Diego RICKS, OUSMANE Bell, URO Address: When: Unknown Comments:Schedule cysto [facility] 11-12-2022 Progress note Author Brook Huddleston [facility] June 28, 2022 2:07pm Note Date/Time June 27, 2022 10:23am [facility] [place] [address] Hem/Onc Follow Up Note - OP Signed Patient: Patsy Cunningham MR#: [id number] : 1945 Acct:[id number] Age/Sex: 77 / M Type: REG RCR [...] if symptoms improve. One month followup with BANQUET CAPTAIN to review labs and symptoms. He also has followup with Dr. Hall in one week and will inform him of plan for one month off Revlimid. He also may seek Urology second opinion. Moderate complexity 30 minute followup visit. 05/23/2022: Noted to have Urolift procedure at [facility] last month, noted increased post-op pain that [...] of kidney stone by Dr. Seals at [facility] on 01/14/2022 without complications. Sent off Revlimid [...] protein electrophoresis or serum or urine immunofixation. [place]/lambda light chain ratio continues to decline to [...] He underwent a painful bone marrow by [facility] CAPTAIN with Dr. Hall with nondiagnostic specimen. Dr. [...] 20 he was treated for UTI at [facility] ER, thenadmitted August 24 to [facility] with dehydration and urosepsis with discharge August 29. 09/05/[address] Heath for continued antibiotics with Bactrim DS. Urine also returned positive for candidiasis and he was treated with fluconazole daily. He stopped his hydralazine and Lasix. --09/17/2021: He returned for labs and skeletal survey at [facility] and his potassium on blood work was markedly elevated. We contacted him and advised ER evaluation at [facility]. His potassium returned at 7.3 and he [...] due for follow-up with Dr. Hall at [facility] hematology in late October for 1 year [...] bone marrow biopsy at [facility] on 10/18/2020. No evidence of MRD--0.5% plasma cells andno clonal plasma cells suggestive of residual myeloma. Tolerating maintenance Revlimid 5mg daily well. No bone pain and normal renal function--Dr. Vincent hasreleased for annual nephrology followup. He is fully vaccinated for veitvmtwxhz30 and I contacted Dr. Hall for coordination [...] marrow biopsy--I briefly discussed Revlimidmaintenance with Mr. Cunningham and his . I will contact patient after bone marrow results to confirm plan with Dr. Hall and f/u with him in about 6 weeks with myeloma labs. 07/02/2020: Patsy has completed all of his pretransplant evaluation at [facility] including cardiology visit 11 9 which showed ejection fraction 60%. I have contacted Dr. Hall who noted that today will be his last day of Velcade and we will hold his daratumumab. He was to have a COVID-19 teston 07/11/2020 for planned stem cell collection 07/17 and transplant on 07/23. I clarified with the staff at [facility] this this may be performed at [facility] and forwarded to them. 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 His pain mainly in hips is about 3 out of 10 and controlled with Percocet. His next follow-up with me chelalewyusufsafia be in about 4 months when he [...] He was evaluated by Dr. Small at [facility] on 04/26/2020. Angel and his note [...] has remarkably improved (>90% reduction past month). Millvale light chains decreased from 12,000 to 42. [...] marijuana and would discuss this with his rd manager whetherthis would interfere with dialysis. We will also follow closely for cytopenias and reviewed infectious precautions. He has a son from [place] who plans to visit on Thursday and [...] now 77-year-old male who was transferred from [facility] emergency room by [facility] due to critical [...] day 0 autologous stem cell transplant 07/25/2020at [facility]. 11/26/2020: Follow-up bone marrow aspiration and biopsy 10/18/2020 for MRD evaluation shows hypocellular marrow with 0.5% plasma cells, no clonal population by flow cytometry but 0.03% kappa light chain skewing. Started Revlimid 5 mg daily for maintenance therapy early October 2020. Nondiagnostic bone marrow for MRD in spring 2021 at . Planned follow-up bone marrow biopsy for MRD at [facility] fall 2021. -- 02/05/2022: Revlimid on hold [...] followed by Dr. Seals--recent ESWL 01/14/2022 at [place]. ENDOCRINE: Negative for cold intolerance and heat [...] Negative for environmental allergies and food allergies. [facility] - History Attestation statement: The following information [...] October 2021, repeat MRD bone marrow at [facility] April 2022, MRD aspirate sent 05/23/2022--Clonoseq returned [...] 0 scheduled 07/23/2020. His next follow-up with mi will be in about 4 months after he is completed day 100 transplant follow-up. He may return sooner as needed. 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 Melphalan 100mg/m2 + ASCT Day 0 07/25/2020. 11/26/2020: Followup of [facility] end of therapy bone marrow biopsy 10/18/2020--no [...] kappa/lambda light chain ratio. MRD testing at [facility] was nondiagnostic and he will have [...] be scheduled for MRD bone marrow at [facility] interventional radiology in April 2022, then follow-up with me with review of myeloma labs 3 months after this procedure. He still has undetectablemonoclonal spike and normal kappa/lambda light chain ratio on most recent labs. Renal function is improving since ESWL at [place] in late December. 05/23/2022: No new issues, [...] symptoms improved at one month followup with [facility]TAIN, he will followup with me in one [...] for MRD. Repeat MRD bone marrow at [facility] in 3 months because spring 2021 bone [...] for coordination of care (as documented) and szqz-te-shdc counseling of patient and/or family. Dictated By: Brook Huddleston MD DD/ [id number] Signed By: <Electronically signed by MD Brook Huddleston> 06/28/22 [address] [facility] Work Phone: 1(991) 573-492810-19-2022 Hospital Discharge instructions Patient Education 06/04/2022 11:10:13 Acute Urinary Retention, Male, Bsqo-nl-Tkcv Acute Urinary Retention, Male Acute urinary retention means that you cannot pee (urinate) at all, or that you pee too little and your bladder is not emptied completely. If it is not treated, it can lead to kidney damage or other serious problems. Follow these instructions at home: Take mmru-sdw-ffmdxcx and prescription medicines only as told by [...] 01/19/2009 Document Revised: 10/20/2019 Document Reviewed: 09/04/2017 [place] Patient Education 2020 [employer]. Follow Up Care 05/05/2022 11:07:39 With:Diego RICKS, OUSMANE Bell, URO Address: [facility] [place] [address]- [phone] When:08/04/2022 [facility] 10-08-2022 Progress note Author Brook Huddleston [facility] May 24, 2022 12:25pm Note Date/Time May 23, 2022 11 :15am [facility] at [address] [address] Hem/Onc Follow Up Note - OP Signed Patient: Patsy Cunningham MR#: [id number] : 1945 Acct:[id number] Age/Sex: 77 / M Type: REG RCR Copies to: eHlen Heath MD~ Subjective Date/Time of Service: Date of Service: 05/23/2022 Time of Service: 11:15 Chief Complaint: Patient is here today for a 4 month follow up visit for light chain nephropathy d/t multiple myeloma and go over bone marrow biopsy results HPI: 05/23/2022: Noted to have Urolift procedure at [facility] last month, noted increased post-op pain that [...] of kidney stone by Dr. Seals at [place] on 01/14/2022 without complications. Sent off Revlimid [...] protein electrophoresis or serum or urine immunofixation. [place]/lambda light chain ratio continues to decline to [...] He underwent a painful bone marrow by [facility] with Dr. Hall with nondiagnostic specimen. Dr. [...] 20 he was treated for UTI at [facility] ER, thenadmitted August 24 to [place] with dehydration and urosepsis with discharge August 29. 09/05/[address] Heath for continued antibiotics with Bactrim DS. Urine also returned positive for candidiasis and he was treated with fluconazole daily. He stopped his hydralazine and Lasix. --09/17/2021: He returned for labs and skeletal survey at [facility] and his potassium on blood work was markedly elevated. We contacted him and advised ER evaluation at [facility]. His potassium returned at 7.3 and he [...] due for follow-up with Dr. Hall at [facility] hematology in late October for 1 year [...] bone marrow biopsy at [facility] on 10/18/2020. No evidence of MRD--0.5% plasma cells andno clonal plasma cells suggestive of residual myeloma. Tolerating maintenance Revlimid 5mg daily well. No bone pain and normal renal function--Dr. Vincent hasreleased for annual nephrology followup. He is fully vaccinated for [id number] and I contacted Dr. Hall for coordination [...] marrow biopsy--I briefly discussed Revlimidmaintenance with Mr. Cunningham and his . I will contact patient after bone marrow results to confirm plan with Dr. Hall and f/u with him in about 6 weeks with myeloma labs. 07/02/2020: Patsy has completed all of his pretransplant evaluation at [facility] including cardiology visit 11 9 which showed ejection fraction 60%. I have contacted Dr. Hall who noted that today will be his last day of Velcade and we will hold his daratumumab. He was to have a COVID-19 teston 07/11/2020 for planned stem cell collection 07/17 and transplant on 07/23. I clarified with the staff at [facility] this this may be performed at [facility] and forwarded to them. His neuropathy in [...] He was evaluated by Dr. Small at [facility] on 04/26/2020. Angel and his note [...] has remarkably improved (>90% reduction past month). [place] light chains decreased from 12,000 to 42. [...] marijuana and would discuss this with his rd manager whetherthis would interfere with dialysis. We will also follow closely for cytopenias and reviewed infectious precautions. He has a son from [place] who plans to visit on Thursday and [...] but he may address this with our [facility] nutrition team. He will also receivechemotherapy class with our nurses in the infusion center. PRELIMINARY HISTORY (from initial consult 03/08/2020): This is a now 77-year-old male who was transferred from [facility] emergency room by [facility] due to critical [...] to be coordinated with nursing staffdue to [facility]-19 visitor restriction policy. - Summary of Therapies [...] day 0 autologous stem cell transplant 07/25/2020at [facility]. 11/26/2020: Follow-up bone marrow aspiration and biopsy 10/18/2020 for MRD evaluation shows hypocellular marrow with 0.5% plasma cells, no clonal population by flow cytometry but 0.03% kappa light chain skewing. Started Revlimid 5 mg daily for maintenance therapy early October 2020. Nondiagnostic bone marrow for MRD in spring 2021 at . Planned follow-up bone marrow biopsy for MRD at [facility] fall 2021. -- 02/05/2022: Revlimid on hold [...] followed by Dr. Seals--recent ESWL 01/14/2022 at [place]. ENDOCRINE: Negative for cold intolerance and heat [...] October 2021, repeat MRD bone marrow at [facility] April 2022, MRD aspirate sent 05/23/2022 (1) [...] day 0 scheduled 07/23/2020. His next follow-up withme will be in about 4 months after he is completed day 100 transplant follow-up. He may return sooner as needed. 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 Melphalan 100mg/m2 + ASCT Day 0 07/25/2020. 11/26/2020: Followup of [facility] end of therapy bone marrow biopsy 10/18/2020--no [...] kappa/lambda light chain ratio. MRD testing at [facility] was nondiagnostic and he will have repeat bone marrow biopsy here with mi to send MRD testing. Next followup with mi in 3 months for exam and f/u [...] be scheduled for MRD bone marrow at [facility] interventional radiology in April 2022, then follow-up with me with review of myeloma labs 3 months after this procedure. He still has undetectablemonoclonal spike and normal kappa/lambda light chain ratio on most recent labs. Renal function is improving since ESWL at [place] in late December. 05/23/2022: No new issues, [...] for MRD. Repeat MRD bone marrow at [facility] in 3 months because spring 2021 bone [...] for coordination of care (as documented) and nwcr-dc-fdxk counseling of patient and/or family. Dictated By: Brook Huddleston MD DD/ 1115 Signed By: <Electronically signed by MD Brook Huddleston> 05/24/22 [address] [facility] Work Phone: 1(388) 986-184710-08-2022 [facility] Procedure note [facility]09-19-2022 Hospital Discharge instructions Patient Education 05/05/2022 10:53:10 [...] tipped catheter. Follow Up Care 04/18/2022 14:54:13 With:Orquidea Cortez Address:Unknown When: Unknown Comments:Office will call to schedule follow up in 1 month with PVR and IPSSFollow up in 1-2 days for bond removal if urine is clear With:Orquidea Cortez Address:Unknown When: Unknown [facility]09-02-2022 Hospital Discharge instructions Patient Education 04/18/2022 14:33:30 [...] 08/03/2006 Document Revised: 04/22/2019 Document Reviewed: 07/03/2017 [place] Patient Education 2020 [employer]. 04/18/2022 14:33:29 Benign Prostatic Hyperplasia Benign Prostatic [...] urethra. Follow these instructions at home: Take nhnr-dea-vyohnkb and prescription medicines only as told by [...] 08/03/2006 Document Revised: 06/28/2019 Document Reviewed: 09/07/2017 [place] Patient Education 2020 [employer]. Follow Up Care 04/15/2022 15:48:55 With:Diego RICKS, OUSMANE Bell, URO Address: When: Unknown [facility] 08-18-2022 Hospital Discharge instructions Patient Education 04/03/2022 [...] With:Patsy Seals Address: [facility] [address] [place] [address]- Business (1) When:2 to 4 weeks Comments:Office visit to discuss and schedule Urolift. [facility]06-23-2022 Progress note Author Brook Huddleston [facility] February 06, 2022 2:07pm Note Date/Time February 05, 2022 11:[address] [place] [address] Cancer Center at [address] [address] Hem/Onc Follow Up Note - OP Signed Patient: Patsy Cunningham MR#: [id number] : 1945 Acct:[id number] Age/Sex: 77 / M Type: REG RCR [...] of kidney stone by Dr. Seals at [place] on 01/14/2022 without complications. Sent off Revlimid [...] protein electrophoresis or serum or urine immunofixation. [place]/lambda light chain ratio continues to decline to [...] He underwent a painful bone marrow by [facility] with Dr. Hall with nondiagnostic specimen. Dr. [...] 20 he was treated for UTI at [facility] ER, thenadmitted August 24 to [place] with dehydration and urosepsis with discharge August 29. 09/05/[address] Heath for continued antibiotics with Bactrim DS. Urine also returned positive for candidiasis and he was treated with fluconazole daily. He stopped his hydralazine and Lasix. --09/17/2021: He returned for labs and skeletal survey at [facility] and his potassium on blood work was markedly elevated. We contacted him and advised ER evaluation at [facility]. His potassium returned at 7.3 and he [...] due for follow-up with Dr. Hall at [facility] malignant hematology in late October for [...] bone marrow biopsy at [facility] on 10/18/2020. No evidence of MRD--0.5% plasma cells andno clonal plasma cells suggestive of residual myeloma. Tolerating maintenance Revlimid 5mg daily well. No bone pain and normal renal function--Dr. Vincent hasreleased for annual nephrology followup. He is fully vaccinated for [id number] and I contacted Dr. Hall for coordination [...] marrow biopsy--I briefly discussed Revlimidmaintenance with Mr. Cunningham and his . I will contact patient after bone marrow results to confirm plan with Dr. Hall and f/u with him in about 6 weeks with myeloma labs. 07/02/2020: Patsy has completed all of his pretransplant evaluation at [facility] including cardiology visit 11 9 which showed ejection fraction 60%. I have contacted Dr. Hall who noted that today will be his last day of Velcade and we will hold his daratumumab. He was to have a COVID-19 teston 07/11/2020 for planned stem cell collection 07/17 and transplant on 07/23. I clarified with the staff at [facility] this this may be performed at [facility] and forwarded to them. His neuropathy in [...] He was evaluated by Dr. Small at [facility] on 04/26/2020. Angel and his note [...] has remarkably improved (>90% reduction past month). [place] light chains decreased from 12,000 to 42. [...] marijuana and would discuss this with his rd manager whetherthis would interfere with dialysis. We will also follow closely for cytopenias and reviewed infectious precautions. He has a son from [place] who plans to visit on Thursday and [...] but he may address this with our [facility] nutrition team. He will also receivechemotherapy class with our nurses in the infusion center. PRELIMINARY HISTORY (from initial consult 03/08/2020): This is a now 77-year-old male who was transferred from [place] emergency room by [facility] due to critical [...] to be coordinated with nursing staffdue to [facility]-19 visitor restriction policy. - Summary of Therapies [...] day 0 autologous stem cell transplant 07/25/2020at [facility]. 11/26/2020: Follow-up bone marrow aspiration and biopsy 10/18/2020 for MRD evaluation shows hypocellular marrow with 0.5% plasma cells, no clonal population by flow cytometry but 0.03% kappa light chain skewing. Started Revlimid 5 mg daily for maintenance therapy early October 2020. Nondiagnostic bone marrow for MRD in spring 2021 at . Planned follow-up bone marrow biopsy for MRD at [facility] fall 2021. -- 02/05/2022: Revlimid on hold [...] followed by Dr. Seals--recent ESWL 01/14/2022 at [place]. ENDOCRINE: Negative for cold intolerance and heat [...] Negative for environmental allergies and food allergies. [facility] - History Attestation statement: The following information [...] % (Auto) 66.4, Lymph % (Auto) 21.2, [place] % (Auto) 6.9, Eos %(Auto) 5.1, Baso % (Auto) 0.4, Neut # (Auto) 2.4, Lymph # (Auto) 0.8 L, [place] # (Auto) 0.3, Eos # (Auto) 0.2, Baso # (Auto) 0.0, Nucleated RBC % (auto) 0.1 - Impressions No imaging for review. We do not have records from his recent ESWL at [place]. 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 11/26/2020: Followup of [facility] end of therapy bone marrow biopsy 10/18/2020--no [...] kappa/lambda light chain ratio. MRD testing at [facility] was nondiagnostic and he will have [...] be scheduled for MRD bone marrow at [facility] interventional radiology in April 2022, then follow-up with me with review of myeloma labs 3 months after this procedure. He still has undetectablemonoclonal spike and normal kappa/lambda light chain ratio on most recent labs. Renal function is improving since ESWL at [place] in late December. This is a moderate [...] for MRD. Repeat MRD bone marrow at [facility] in 3 months because spring 2021 bone [...] for coordination of care (as documented) and bzzk-ll-vufn counseling of patient and/or family. Dictated By: Brook Huddleston MD DD/ 1153 Signed By: <Electronically signed by MD Brook Huddleston> 02/06/22 [facility] Work Phone: 1(180) 820-788706-23-2022 Progress note Author Brook Huddleston [facility] February 06, 2022 2:07pm Note Date/Time February 05, 2022 11:5 4am [facility] [place] [address] Hem/Onc Follow Up Note - OP Signed Patient: Patsy Cunningham MR#: [id number] : 1945 Acct:[id number] Age/Sex: 77 / M Type: REG RCR [...] of kidney stone by Dr. Seals at [place] on 01/14/2022 without complications. Sent off Revlimid [...] protein electrophoresis or serum or urine immunofixation. [place]/lambda light chain ratio continues to decline to [...] He underwent a painful bone marrow by [facility] with Dr. Hall with nondiagnostic specimen. Dr. [...] 20 he was treated for UTI at [facility] ER, thenadmitted August 24 to [place] with dehydration and urosepsis with discharge August 29. 09/05/[address] Heath for continued antibiotics with Bactrim DS. Urine also returned positive for candidiasis and he was treated with fluconazole daily. He stopped his hydralazine and Lasix. --09/17/2021: He returned for labs and skeletal survey at [facility] and his potassium on blood work was markedly elevated. We contacted him and advised ER evaluation at [facility]. His potassium returned at 7.3 and he [...] due for follow-up with Dr. Hall at [facility] hematology in late October for 1 year [...] bone marrow biopsy at [facility] on 10/18/2020. No evidence of MRD--0.5% plasma cells andno clonal plasma cells suggestive of residual myeloma. Tolerating maintenance Revlimid 5mg daily well. No bone pain and normal renal function--Dr. Vincent hasreleased for annual nephrology followup. He is fully vaccinated for [id number] and I contacted Dr. Hall for coordination [...] marrow biopsy--I briefly discussed Revlimidmaintenance with Mr. Cunningham and his . I will contact patient after bone marrow results to confirm plan with Dr. Hall and f/u with him in about 6 weeks with myeloma labs. 07/02/2020: Patsy has completed all of his pretransplant evaluation at [facility] including cardiology visit 11 9 which showed ejection fraction 60%. I have contacted Dr. Hall who noted that today will be his last day of Velcade and we will hold his daratumumab. He was to have a COVID-19 teston 07/11/2020 for planned stem cell collection 07/17 and transplant on 07/23. I clarified with the staff at [facility] this this may be performed at [facility] and forwarded to them. His neuropathy in [...] He was evaluated by Dr. Small at [facility] on 04/26/2020. Angel and his note [...] has remarkably improved (>90% reduction past month). [place] light chains decreased from 12,000 to 42. [...] marijuana and would discuss this with his rd manager whetherthis would interfere with dialysis. We will also follow closely for cytopenias and reviewed infectious precautions. He has a son from [place] who plans to visit on Thursday and [...] but he may address this with our [facility] nutrition team. He will also receivechemotherapy class with our nurses in the infusion center. PRELIMINARY HISTORY (from initial consult 03/08/2020): This is a now 77-year-old male who was transferred from [place] emergency room by [facility] due to critical [...] to be coordinated with nursing staffdue to [facility]-19 visitor restriction policy. - Summary of Therapies [...] day 0 autologous stem cell transplant 07/25/2020at [facility]. 11/26/2020: Follow-up bone marrow aspiration and biopsy 10/18/2020 for MRD evaluation shows hypocellular marrow with 0.5% plasma cells, no clonal population by flow cytometry but 0.03% kappa light chain skewing. Started Revlimid 5 mg daily for maintenance therapy early October 2020. Nondiagnostic bone marrow for MRD in spring 2021 at . Planned follow-up bone marrow biopsy for MRD at [facility] fall 2021. -- 02/05/2022: Revlimid on hold [...] followed by Dr. Seals--recent ESWL 01/14/2022 at [place]. ENDOCRINE: Negative for cold intolerance and heat [...] Negative for environmental allergies and food allergies. [facility] - History Attestation statement: The following information [...] % (Auto) 66.4, Lymph % (Auto) 21.2, [place] % (Auto) 6.9, Eos %(Auto) 5.1, Baso % (Auto) 0.4, Neut # (Auto) 2.4, Lymph # (Auto) 0.8 L, [place] # (Auto) 0.3, Eos # (Auto) 0.2, Baso # (Auto) 0.0, Nucleated RBC % (auto) 0.1 - Impressions No imaging for review. We do not have records from his recent ESWL at [place]. 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 His next follow-up with mi will be in about 4 months after he is completed day 100 transplant follow-up. He may return sooner as needed. 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 Melphalan 100mg/m2 + ASCT Day 0 07/25/2020. 11/26/2020: Followup of [facility] end of therapy bone marrow biopsy 10/18/2020--no [...] kappa/lambda light chain ratio. MRD testing at [facility] was nondiagnostic and he will have [...] be scheduled for MRD bone marrow at [facility] interventional radiology in April 2022, then follow-up with me with review of myeloma labs 3 months after this procedure. He still has undetectablemonoclonal spike and normal kappa/lambda light chain ratio on most recent labs. Renal function is improving since ESWL at [place] in late December. This is a moderate [...] for MRD. Repeat MRD bone marrow at [facility] in 3 months because spring 2021 bone [...] for coordination of care (as documented) and drqy-if-aqph counseling of patient and/or family. Dictated By: Brook Huddleston MD DD/ 1153 Signed By: <Electronically signed by MD Brook Huddleston> 02/06/22 [facility] Work Phone: 1(544) 163-774506-14-2022 Hospital Discharge instructions Patient Education 01/28/2022 09:14:11 Kidney Stones, Gmgf-wa-Hepa Kidney Stones Kidney stones are rock-like masses [...] Follow these instructions at home: Medicines Take lkkr-jed-cobhvqg and prescription medicines only as told by [...] 01/19/2009 Document Revised: 12/20/2019 Document Reviewed: 12/20/2019 [place] Patient Education 2020 [employer]. Follow Up Care 01/20/2022 09:24:11 With:Patsy Seals Jr., MD, URO Address: [facility] [address] [place] [address]- When:Within 2 Month(s) Comments:f/u to Terazosin therapy With:Patsy Seals Jr., MD, URO Address: [facility] [address] [place] [address]- When:Within 6 Month(s) Comments:w/ obdulio [facility] 05-20-2022 Progress note Author Brook Huddleston [facility] January 03, 2022 9:40am Note Date/Time January 02, 2022 1:38p m [facility] [place] [id number] Hem/Onc Follow Up Note - OP Signed Patient: Patsy Cunningham MR#: [id number] : 1945 Acct:[id number] Age/Sex: 76 / M Type: REG RCR Copies to: MD Helen Jaramillo MD~ Subjective Date/Time of Service: Date of Service: 01/02/2022 Time of Service: 13:37 Chief Complaint: Patient is here today for 3 month follow up visit and go over labs. He is on hold from his Revlimid for 30 days starting 12/[address] Hall at [facility]. He is tired dizzy and worn out all the time HPI: 01/02/2022: Patsy and his are here for 3 month followup visit. She raised most of the concerns regarding worsening fatigue. He has been off He underwent a painful bone marrow by [facility] with Dr. Hall with nondiagnostic specimen. Dr. [...] 20 he was treated for UTI at [facility] ER, thenadmitted August 24 to [facility] with dehydration and urosepsis with discharge August 29. 09/05/[address] Heath for continued antibiotics with Bactrim DS. Urine also returned positive for candidiasis and he was treated with fluconazole daily. He stopped his hydralazine and Lasix. --09/17/2021: He returned for labs and skeletal survey at [facility] and his potassium on blood work was markedly elevated. We contacted him and advised ER evaluation at [facility]. His potassium returned at 7.3 and he [...] due for follow-up with Dr. Hall at [facility] hematology in late October for 1 year [...] bone marrow biopsy at [facility] on 10/18/2020. No evidence of MRD--0.5% plasma cells andno clonal plasma cells suggestive of residual myeloma. Tolerating maintenance Revlimid 5mg daily well. No bone pain and normal renal function--Dr. Vincent hasreleased for annual nephrology followup. He is fully vaccinated for [id number] and I contacted Dr. Hall for coordination [...] marrow biopsy--I briefly discussed Revlimidmaintenance with Mr. Cunningham and his . I will contact patient after bone marrow results to confirm plan with Dr. Hall and f/u with him in about 6 weeks with myeloma labs. 07/02/2020: Patsy has completed all of his pretransplant evaluation at [facility] including cardiology visit 11 9 which showed ejection fraction 60%. I have contacted Dr. Hall who noted that today will be his last day of Velcade and we will hold his daratumumab. He was to have a COVID-19 teston 07/11/2020 for planned stem cell collection 07/17 and transplant on 07/23. I clarified with the staff at [facility] this this may be performed at [facility] and forwarded to them. 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 His pain mainly in hips is about 3 out of 10 and controlled with Percocet. His next follow-up with me willtiff be in about 4 months when he [...] He was evaluated by Dr. Small at [facility] on 04/26/2020. Angel and his note [...] has remarkably improved (>90% reduction past month). Millvale light chains decreased from 12,000 to 42. Only concern is significant hyperglycemia with dexamethasone. 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 I will coordinate evaluation by Dr. Quiqeu Hall for HDC/autologous stem cell transplantevaluation and [...] marijuana and would discuss this with his rd manager whetherthis would interfere with dialysis. We will also follow closely for cytopenias and reviewed infectious precautions. He has a son from [place] who plans to visit on Thursday and [...] but he may address this with our [facility] nutrition team. He will also receivechemotherapy class with our nurses in the infusion center. PRELIMINARY HISTORY (from initial consult 03/08/2020): This is a 76-year-old male who was transferred from [facility] emergency room by [facility] due to critical [...] to be coordinated with nursing staffdue to [facility]-19 visitor restriction policy. - Summary of Therapies [...] day 0 autologous stem cell transplant 07/25/2020at [facility]. 11/26/2020: Follow-up bone marrow aspiration and biopsy 10/18/2020 for MRD evaluation shows hypocellular marrow with 0.5% plasma cells, no clonal population by flow cytometry but 0.03% kappa light chain skewing. Started Revlimid 5 mg daily for maintenance therapy early October 2020. Nondiagnostic bone marrow for MRD in spring 2021 at . Planned follow-up bone marrow biopsy for MRD at [facility] fall 2021. ROS Details: All systems reviewed [...] Negative for environmental allergies and food allergies. [facility] - History Attestation statement: The following information [...] 35.4, U Random Total Protein 45.3, U Guetc-2-Djkwcmku (%) 5.4, U Random h-6-Ksnlywom % 13.7, U Random b-Globulin % 23.9, U Random Gamma Glob % 21.5, U Random M-Anselmo (%) Comment:, Urine Random PEP Note , Urine Immunofixation 12/26/21 16:01: Serum Total Protein 6.0, Albumin (Send Out) 2.8 L, Globulin (PEP) 3.2, Albumin/Globulin (PEP) 0.9, Whesn-7-Yykdnltqm 0.5 H, Kacjp-1-Oaujufftw 1.0, Beta Globulins 0.9, Gamma Globulins 0.9, M-Anselmo Not observed, PEP Note , Homocysteine Cardiovas 17.5, IgG 944, IgA 250, IgM 33, Serum Immunofixation , Free [place] LC, Quant 38.9 H, Free Lambda LC, Quant 29.7 H, Free [place]/Lambda Ratio 1.31 12/26/21 16:01: PHA Creatinine Clear [...] H, MCHC 35.1, RDW 21.6 H, Plt [id number] L, MPV 8.2, Neut % (Auto) 63.5, Lymph % (Auto) 20.4, [place] % (Auto) 5.7, Eos % (Auto) 9.7, Baso % (Auto) 0.7, Neut # (Auto) 2.5, Lymph # (Auto) 0.8 L, [place] #(Auto) 0.2, Eos # (Auto) 0.4, Baso [...] ASCT Day 0 07/25/2020. 11/26/2020: Followup of [facility] end of therapy bone marrow biopsy 10/18/2020--no [...] kappa/lambda light chain ratio. MRD testing at [facility] was nondiagnostic and he will have [...] for MRD. Repeat MRD bone marrow at [facility] in 3 months because spring bone marrow [...] for coordination of care (as documented) and hozu-au-vtnz counseling of patient and/or family. Dictated By: Brook Huddleston MD DD/ [id number] Signed By: <Electronically signed by MD Brook Huddleston> 01/03/22 [address] [facility] Work Phone: [phone]) 121-210105-20-2022 Progress note Author Brook Huddleston [facility] January 03, 2022 9:40am Note Date/Time January 02, 2022 1:38p m [facility] [place] [address] Hem/Onc Follow Up Note - OP Signed Patient: Patsy Cunningham MR#: [id number] : 1945 Acct:[id number] Age/Sex: 76 / M Type: REG RCR Copies to: MD Helen Jaramillo MD~ Subjective Date/Time of Service: Date of Service: 01/02/2022 Time of Service: 13:37 Chief Complaint: Patient is here today for 3 month follow up visit and go over labs. He is on hold from his Revlimid for 30 days starting 12/[address] Hall at [facility]. He is tired dizzy and worn out all the time HPI: 01/02/2022: Patsy and his are here for 3 month followup visit. She raised most of the concerns regarding worsening fatigue. He has been off He underwent a painful bone marrow by [facility] with Dr. Hall with nondiagnostic specimen. Dr. [...] 20 he was treated for UTI at [facility] ER, thenadmitted August 24 to [facility] with dehydration and urosepsis with discharge August 29. 09/05/[address] Heath for continued antibiotics with Bactrim DS. Urine also returned positive for candidiasis and he was treated with fluconazole daily. He stopped his hydralazine and Lasix. --09/17/2021: He returned for labs and skeletal survey at [facility] and his potassium on blood work was markedly elevated. We contacted him and advised ER evaluation at [facility]. His potassium returned at 7.3 and he [...] due for follow-up with Dr. Hall at [facility] hematology in late October for 1 year [...] bone marrow biopsy at [facility] on 10/18/2020. No evidence of MRD--0.5% plasma cells andno clonal plasma cells suggestive of residual myeloma. Tolerating maintenance Revlimid 5mg daily well. No bone pain and normal renal function--Dr. Vincent hasreleased for annual nephrology followup. He is fully vaccinated for [id number] and I contacted Dr. Hall for coordination [...] marrow biopsy--I briefly discussed Revlimidmaintenance with Mr. Cunningham and his . I will contact patient after bone marrow results to confirm plan with Dr. Hall and f/u with him in about 6 weeks with myeloma labs. 07/02/2020: Patsy has completed all of his pretransplant evaluation at [facility] including cardiology visit 11 9 which showed ejection fraction 60%. I have contacted Dr. Hall who noted that today will be his last day of Velcade and we will hold his daratumumab. He was to have a COVID-19 teston 07/11/2020 for planned stem cell collection 07/17 and transplant on 07/23. I clarified with the staff at [facility] this this may be performed at [facility] and forwarded to them. His neuropathy in [...] He was evaluated by Dr. Small at [facility] on 04/26/2020. Angel and his note [...] has remarkably improved (>90% reduction past month). [place] light chains decreased from 12,000 to 42. [...] marijuana and would discuss this with his rd manager whetherthis would interfere with dialysis. We will also follow closely for cytopenias and reviewed infectious precautions. He has a son from [place] who plans to visit on Thursday and [...] but he may address this with our [facility] nutrition team. He will also receivechemotherapy class with our nurses in the infusion center. PRELIMINARY HISTORY (from initial consult 03/08/2020): This is a 76-year-old male who was transferred from [facility] emergency room by [facility] due to critical [...] day 0 autologous stem cell transplant 07/25/2020at [facility]. 11/26/2020: Follow-up bone marrow aspiration and biopsy 10/18/2020 for MRD evaluation shows hypocellular marrow with 0.5% plasma cells, no clonal population by flow cytometry but 0.03% kappa light chain skewing. Started Revlimid 5 mg daily for maintenance therapy early October 2020. Nondiagnostic bone marrow for MRD in spring 2021 at . Planned follow-up bone marrow biopsy for MRD at [facility] fall 2021. ROS Details: All systems reviewed [...] 35.4, U Random Total Protein 45.3, U Wrysc-0-Krhxtekw (%) 5.4, U Random x-3-Smowlwpv % 13.7, U Random b-Globulin % 23.9, U Random Gamma Glob % 21.5, U Random M-Anselmo (%) Comment:, Urine Random PEP Note , Urine Immunofixation 12/26/21 16:01: Serum Total Protein 6.0, Albumin (Send Out) 2.8 L, Globulin (PEP) 3.2, Albumin/Globulin (PEP) 0.9, Gzevo-6-Eleavzsnk 0.5 H, Bflwf-9-Krxlcljch 1.0, Beta Globulins 0.9, Gamma Globulins 0.9, M-Anselmo Not observed, PEP Note , Homocysteine Cardiovas 17.5, IgG 944, IgA 250, IgM 33, Serum Immunofixation , Free [place] LC, Quant 38.9 H, Free Lambda LC, Quant 29.7 H, Free [place]/Lambda Ratio 1.31 12/26/21 16:01: PHA Creatinine Clear [...] H, MCHC 35.1, RDW 21.6 H, Plt Egxkf423 L, MPV 8.2, Neut % (Auto) 63.5, Lymph % (Auto) 20.4, [place] % (Auto) 5.7, Eos % (Auto) 9.7, Baso % (Auto) 0.7, Neut # (Auto) 2.5, Lymph # (Auto) 0.8 L, [place] #(Auto) 0.2, Eos # (Auto) 0.4, Baso [...] ASCT Day 0 07/25/2020. 11/26/2020: Followup of [facility] end of therapy bone marrow biopsy 10/18/2020--no [...] kappa/lambda light chain ratio. MRD testing at [facility] was nondiagnostic and he will have [...] for MRD. Repeat MRD bone marrow at [facility] in 3 months because spring bone marrow [...] for coordination of care (as documented) and vdyf-ih-kjtu counseling of patient and/or family. Dictated By: Brook Huddleston MD DD/ [id number] Signed By: <Electronically signed by MD Brook Huddleston> 01/03/22 [address] [facility] Work Phone: 1(761) 358-311004-26-2022 Hospital Discharge instructions Patient Education 12/10/2021 10:54:55 [...] urethra. Follow these instructions at home: Take bbwy-ykz-nyhnzdu and prescription medicines only as told by [...] 08/03/2006 Document Revised: 06/28/2019 Document Reviewed: 09/07/2017 [place] Patient Education 2020 [employer]. Follow Up Care 11/13/2020 14:21:59 With:Vandana Urban MD, Patsy Payne URO Address: [facility] [address], [place] [address]- When: Unknown Comments:after procedure [facility] 04-14-2022 NotePre-procedure Verification and Time Out: Pre-Procedure Verification and Time Out: Procedure Locationprocedure area HUDDLE - Pre-procedure Verificationcompleted TIME OUT - Final Verificationcompleted immediately prior to procedure start DEBRIEFcompleted General Information: Anesthesia Critical Care: Non-Anesthesia Post-Procedure Diagnosis: Myeloma Procedure Name: Bone marrow biopsy Findings: grossly normal anatomy Procedure performed by: mi Gage Designer(s): Brook Restrepo Estimated Blood Loss (mL): none [...] EMR. Tolerance: good Electronic Signatures: Suly Motta (HAND [employer]MENT [employer] SECURITY PROGRAM SPECIALIST) (Signed 28-Nov-2021 10:51) Authored: Pre-procedure Verification and Time Out, General Information, Procedure Details, Note Completion Last Updated: 28-Nov-2021 10:51 by Suly Motta (HAND [employer]ITY PROGRAM SPECIALIST)[facility]04-14-2022 NoteClinic Note: Education Assessment: Learning BarriersNo barriers TaughtPatient Primary Language of PatientEnglish Blood: Topic(s): BloodLab Results MethodVerbal, Handout EvaluationTeaches back, States general concept, Needs reinforcement Safety: Topic(s): SafetyFalls Prevention, Safety at Home MethodVerbal EvaluationTeaches back, States general concept, Needs reinforcement Treatment/Procedures: Topic(s): Treatment/ProceduresBone Marrow Biospy MethodVerbal, Handout, Demonstration EvaluationTeaches back, States general concept, Needs reinforcement Electronic Signatures: Violetta Bundy (EVY) (Signed 28-Nov-2021 10:36) Authored: Education Assessment, Blood, Safety, Treatment/Procedures Last Updated: 28-Nov-2021 10:36 by Violetta Bundy (EVY)[facility] 10-29-2021 Evaluation note* Encounter Date Diagnosis Assessment [...] supplement as the patient is now off Lasix Meitu Other 02-18-2022 Progress note Author Brook Huddleston [facility] October 04, 2021 1:57pm Note Date/Time October 03, 2021 1:23pm [facility] [place] [address] Hem/Onc Follow Up Note - OP Signed Patient: Patsy Cunningham MR#: [id number] : 1945 Acct:[id number] Age/Sex: 76 / M Type: REG RCR [...] He has had recent hospital stay at [facility] HPI: 10/03/2021: Patsy is here for 4-month follow-up of light chain myeloma. His brought me a thorough list of his recent hospitalizations since early August 2021. Recurrent weakness and dizziness as per chief complaint. --August 20 he was treated for UTI at [facility] ER, thenadmitted August 24 to [facility] with dehydration and urosepsis with discharge August 29. 09/05/[address] Heath for continued antibiotics with Bactrim DS. Urine also returned positive for candidiasis and he was treated with fluconazole daily. He stopped his hydralazine and Lasix. --09/17/2021: He returned for labs and skeletal survey at [facility] and his potassium on blood work was markedly elevated. We contacted him and advised ER evaluation at [facility]. His potassium returned at 7.3 and he [...] due for follow-up with Dr. Hall at [facility] hematology in late October for 1 year [...] bone marrow biopsy at [facility] on 10/18/2020. No evidence of MRD--0.5% plasma cells andno clonal plasma cells suggestive of residual myeloma. Tolerating maintenance Revlimid 5mg daily well. No bone pain and normal renal function--Dr. Vincent hasreleased for annual nephrology followup. He is fully vaccinated for [id number] and I contacted Dr. Hall for coordination [...] marrow biopsy--I briefly discussed Revlimidmaintenance with Mr. Cunningham and his . I will contact patient after bone marrow results to confirm plan with Dr. Hall and f/u with him in about 6 weeks with myeloma labs. 07/02/2020: Patsy has completed all of his pretransplant evaluation at [facility] including cardiology visit 11 9 which showed ejection fraction 60%. I have contacted Dr. Hall who noted that today will be his last day of Velcade and we will hold his daratumumab. He was to have a COVID-19 test on 07/11/2020 for planned stem cell collection 07/17 and transplant on 07/23. I clarified with the staff at [facility] this this may be performed at [facility] and forwarded to them. His neuropathy in [...] He was evaluated by Dr. Small at [facility] on 04/26/2020. Angel and his note [...] has remarkably improved (>90% reduction past month). [place] light chains decreased from 12,000 to 42. [...] marijuana and would discuss this with his rd manager whetherthis would interfere with dialysis. We will also follow closely for cytopenias and reviewed infectious precautions. He has a son from [place] who plans to visit on Thursday and [...] a 76-year-old male who was transferred from [facility] emergency room by [facility] due to critical [...] to be coordinated with nursing staffdue to [facility]-19 visitor restriction policy. - Summary of Therapies [...] day 0 autologous stem cell transplant 07/25/2020at [facility]. 11/26/2020: Follow-up bone marrow aspiration [...] Negative for environmental allergies and food allergies. [facility] - Medical History Medical History: Medical History [...] ASCT Day 0 07/25/2020. 11/26/2020: Followup of [facility] end of therapy bone marrow biopsy 10/18/2020--no [...] Revlimid 5 mg daily. Next followup with mi in 3 months for exam and f/u [...] for coordination of care (as documented) and pppv-ah-nefr counseling of patient and/or family. Dictated By: Brook Huddleston MD DD/ 1322 Signed By: <Electronically signed by MD Brook Huddleston> 10/04/21 [address] [facility] Work Phone: 1(459) 454-893402-18-2022 Progress note Author Brook Huddleston [facility] October 04, 2021 1:57pm Note Date/Time October 03, 2021 1:23pm [facility] [place] [address] Hem/Onc Follow Up Note - OP Signed Patient: Patsy Cunningham MR#: [id number] : 1945 Acct:[id number] Age/Sex: 76 / M Type: REG RCR [...] He has had recent hospital stay at [facility] HPI: 10/03/2021: Patsy is here for 4-month follow-up of light chain myeloma. His brought me a thorough list of his recent hospitalizations since early August 2021. Recurrent weakness and dizziness as per chief complaint. --August 20 he was treated for UTI at [facility] ER, thenadmitted August 24 to [facility] with dehydration and urosepsis with discharge August 29. 09/05/[address] Heath for continued antibiotics with Bactrim DS. Urine also returned positive for candidiasis and he was treated with fluconazole daily. He stopped his hydralazine and Lasix. --09/17/2021: He returned for labs and skeletal survey at [facility] and his potassium on blood work was markedly elevated. We contacted him and advised ER evaluation at [facility]. His potassium returned at 7.3 and he [...] due for follow-up with Dr. Hall at [facility] hematology in late October for 1 year [...] bone marrow biopsy at [facility] on 10/18/2020. No evidence of MRD--0.5% plasma cells andno clonal plasma cells suggestive of residual myeloma. Tolerating maintenance Revlimid 5mg daily well. No bone pain and normal renal function--Dr. Vincent hasreleased for annual nephrology followup. He is fully vaccinated for [id number] and I contacted Dr. Hall for coordination [...] marrow biopsy--I briefly discussed Revlimidmaintenance with Mr. Cunningham and his . I will contact patient after bone marrow results to confirm plan with Dr. Hall and f/u with him in about 6 weeks with myeloma labs. 07/02/2020: Patsy has completed all of his pretransplant evaluation at [facility] including cardiology visit 11 which showed ejection fraction 60%. I have contacted Dr. Hall who noted that today will be his last day of Velcade and we will hold his daratumumab. He was to have a COVID-19 test on 07/11/2020 for planned stem cell collection 07/17 and transplant on 07/23. I clarified with the staff at [facility] this this may be performed at [facility] and forwarded to them. His neuropathy in [...] He was evaluated by Dr. Small at [facility] on 04/26/2020. Angel and his note [...] has remarkably improved (>90% reduction past month). Millvale light chains decreased from 12,000 to 42. [...] marijuana and would discuss this with his rd manager whetherthis would interfere with dialysis. We will also follow closely for cytopenias and reviewed infectious precautions. He has a son from [place] who plans to visit on Thursday and [...] a 76-year-old male who was transferred from [facility] emergency room by [facility] due to critical [...] day 0 autologous stem cell transplant 07/25/2020at [facility]. 11/26/2020: Follow-up bone marrow aspiration [...] Negative for environmental allergies and food allergies. [facility] - Medical History Medical History: Medical History [...] ASCT Day 0 07/25/2020. 11/26/2020: Followup of [facility] end of therapy bone marrow biopsy 10/18/2020--no [...] Revlimid 5 mg daily. Next followup with mi in 3 months for exam and f/u [...] for coordination of care (as documented) and jqsy-ir-nlpj counseling of patient and/or family. Dictated By: Brook Huddleston MD DD/ 1322 Signed By: <Electronically signed by MD Brook Huddleston> 10/04/21 [address] [facility] Work Phone: 1(800) 862-612810-15-2021 Progress note Author Brook Huddleston [facility] May 31, 2021 5:42pm Note Date/Time May 30, 2021 2 :50pm [facility] [place] [address] Hem/Onc Follow Up Note - OP Signed Patient: Patsy Cunningham MR#: [id number] : 1945 Acct:[id number] Age/Sex: 76 / M Type: REG RCR Copies to: MD Helen Jaramillo MD~ Subjective Date/Time of Service: Date of Service: 05/30/2021 Time of Service: 14:49 Chief Complaint: Patient is here for a 3 month follow up wiht labs for review. Patient has questions about [...] are in agreement with this plan. 11/26/2020: Pasty is here for followup after D86 bone marrow biopsy at [facility] on 10/18/2020. No evidence of MRD--0.5% plasma cells andno clonal plasma cells suggestive of residual myeloma. Tolerating maintenance Revlimid 5mg daily well. No bone pain and normal renal function--Dr. Vincent hasreleased for annual nephrology followup. He is fully vaccinated for [id number] and I contacted Dr. Hall for coordination [...] marrow biopsy--I briefly discussed Revlimidmaintenance with Mr. Cunningham and his . I will contact patient after bone marrow results to confirm plan with Dr. Hall and f/u with him in about 6 weeks with myeloma labs. 07/02/2020: Patsy has completed all of his pretransplant evaluation at [facility] including cardiology visit 06 25 which showed ejection fraction 60%. I have contacted Dr. Hall who noted that today will be his last day of Velcade and we will hold his daratumumab. He was to have a COVID-19 teston 07/11/2020 for planned stem cell collection 07/17 and transplant on 07/23. I clarified with the staff at [facility] this this may be performed at [facility] and forwarded to them. His neuropathy in [...] He was evaluated by Dr. Small at [facility] on 04/26/2020. Angel and his note [...] has remarkably improved (>90% reduction past month). Millvale light chains decreased from 12,000 to 42. [...] marijuana and would discuss this with his rd manager whetherthis would interfere with dialysis. We will also follow closely for cytopenias and reviewed infectious precautions. He has a son from [place] who plans to visit on Thursday and [...] a 76-year-old male who was transferred from [place] [facility] emergency room by [facility] due to critical potassium 8.7 with elevated [...] day 0 autologous stem cell transplant 07/25/2020at [facility]. 11/26/2020: Follow-up bone marrow aspiration [...] 33.0, U Random Total Protein <4.0, U Onzfr-1-Clbdoukc (%) 3.1, U Random m-5-Teejmlpa % 13.7, U Random b-Globulin % 26.4, U Random Gamma Glob % 23.7, U Random M-Anselmo (%) Not observed, Urine Random PEP Note , Urine Immunofixation 05/24/21 14:07: Serum Total Protein 6.4, Albumin (Send Out) 3.3, Globulin (PEP) 3.1, Albumin/Globulin (PEP) 1.1, Fmxdd-5-Uzsjyosvj 0.3, Clpnu-6-Pyldoufwg 0.9, Beta Globulins 0.9, Dvdl-9-Xummvwbqrqumo 2.8 H, Gamma Globulins 1.0, M-Anselmo Comment:, PEP Note , IgG 944, IgA 137, IgM 29, Serum Immunofixation Comment:, Free [place] LC, Quant 32.7 H, Free Lambda LC, Quant 21.3, Free [place]/Lambda Ratio1.54 05/24/21 14:07: PHA Creatinine Clear 78.43, [...] % (Auto) 43.8, Lymph % (Auto) 25.5, [place] % (Auto) 9.0, Eos % (Auto) 20.7, Baso % (Auto) 1.0, Neut # (Auto) 1.6 L, Lymph # (Auto) 0.9 L,[place] # (Auto) 0.3, Eos # (Auto) 0.8 [...] ASCT Day 0 07/25/2020. 11/26/2020: Followup of [facility] end of therapy bone marrow biopsy 10/18/2020--no [...] and normal kappa/lambda ratio. Next followup with mi in 3 months for exam and f/u [...] for coordination of care (as documented) and rtor-lr-zsqx counseling of patient and/or family. Dictated By: Brook Huddleston MD DD/ 1445 Signed By: <Electronically signed by MD Brook Huddleston> 05/31/21 [facility] Work Phone: 1([phone]) 999-956310-15-2021 Progress note Author Brook Huddleston [facility] May 31, 2021 5:42pm Note Date/Time May 30, 2021 2 :50pm [facility] [place] [address] Hem/Onc Follow Up Note - OP Signed Patient: Patsy Cunningham MR#: [id number] : 1945 Acct:[id number] Age/Sex: 76 / M Type: REG RCR Copies to: MD Helen Jaramillo MD~ Subjective Date/Time of Service: Date of Service: 05/30/2021 Time of Service: 14:49 Chief Complaint: Patient is here for a 3 month follow up [facility] labs for review. Patient has questions about [...] bone marrow biopsy at [facility] on 10/18/2020. No evidence of MRD--0.5% plasma cells andno clonal plasma cells suggestive of residual myeloma. Tolerating maintenance Revlimid 5mg daily well. No bone pain and normal renal function--Dr. Vincent hasreleased for annual nephrology followup. He is fully vaccinated for [id number] and I contacted Dr. Hall for coordination [...] marrow biopsy--I briefly discussed Revlimidmaintenance with Mr. Cunningham and his . I will contact patient after bone marrow results to confirm plan with Dr. Hall and f/u with him in about 6 weeks with myeloma labs. 07/02/2020: Patsy has completed all of his pretransplant evaluation at [facility] including cardiology visit 11 9 which showed ejection fraction 60%. I have contacted Dr. Hall who noted that today will be his last day of Velcade and we will hold his daratumumab. He was to have a COVID-19 teston 07/11/2020 for planned stem cell collection 07/17 and transplant on 07/23. I clarified with the staff at [facility] this this may be performed at [facility] and forwarded to them. His neuropathy in [...] He was evaluated by Dr. Small at [facility] on 04/26/2020. Angel and his note [...] has remarkably improved (>90% reduction past month). Millvale light chains decreased from 12,000 to 42. [...] marijuana and would discuss this with his rd manager whetherthis would interfere with dialysis. We will also follow closely for cytopenias and reviewed infectious precautions. He has a son from [place] who plans to visit on Thursday and [...] a 76-year-old male who was [facility] [place] [facility] critical potassium 8.7 with elevated [...] day 0 autologous stem cell transplant 07/25/2020at [facility]. 11/26/2020: Follow-up bone marrow aspiration [...] 33.0, U Random Total Protein <4.0, U Obbof-6-Vadtfdkv (%) 3.1, U Random w-6-Camenrmf % 13.7, U Random b-Globulin % 26.4, U Random Gamma Glob % 23.7, U Random M-Anselmo (%) Not observed, Urine Random PEP Note , Urine Immunofixation 05/24/21 14:07: Serum Total Protein 6.4, Albumin (Send Out) 3.3, Globulin (PEP) 3.1, Albumin/Globulin (PEP) 1.1, Wnbxv-9-Edwpyhqcy 0.3, Gfzhx-1-Xbxhzlriw 0.9, Beta Globulins 0.9, Qutr-9-Xmxfncygwaupg 2.8 H, Gamma Globulins 1.0, M-Anselmo Comment:, PEP Note , IgG 944, IgA 137, IgM 29, Serum Immunofixation Comment:, Free [place] LC, Quant 32.7 H, Free Lambda LC, Quant 21.3, Free [place]/Lambda Ratio1.54 05/24/21 14:07: PHA Creatinine Clear 78.43, [...] % (Auto) 43.8, Lymph % (Auto) 25.5, [place] % (Auto) 9.0, Eos % (Auto) 20.7, Baso % (Auto) 1.0, Neut # (Auto) 1.6 L, Lymph # (Auto) 0.9 L,Pat[place] # (Auto) 0.3, Eos # (Auto) 0.8 [...] ASCT Day 0 07/25/2020. 11/26/2020: Followup of [facility] end of therapy bone marrow biopsy 10/18/2020--no [...] for coordination of care (as documented) and wvtr-ls-wpym counseling of patient and/or family. Dictated By: Brook Huddleston MD DD/ 1449 Signed By: <Electronically signed by MD Brook Huddleston> 05/31/21 0725 [facility] Work Phone: [phone]) 869-998407-14-2021 Progress note Author Brook Huddleston [facility] February 27, 2021 8:52pm Note Date/Time February 27, 2021 2:50 pm [facility] [place] [address] Hem/Onc Follow Up Note - OP Signed Patient: Patsy Cunningham MR#: [id number] : 1945 Acct:[id number] Age/Sex: 76 / M Type: REG RCR Copies to: MD Quique English MD Katherine M McGraw, JACKIE Heath MD~ Subjective Date/Time of Service: Date [...] bone marrow biopsy at [facility] on 10/18/2020. No evidence of MRD--0.5% plasma cells andno clonal plasma cells suggestive of residual myeloma. Tolerating maintenance Revlimid 5mg daily well. No bone pain and normal renal function--Dr. Vincent hasreleased for annual nephrology followup. He is fully vaccinated for [id number] and I contacted Dr. Hall for coordination [...] marrow biopsy--I briefly discussed Revlimidmaintenance with Mr. Cunningham and his . I will contact patient after bone marrow results to confirm plan with Dr. Hall and f/u with him in about 6 weeks with myeloma labs. 07/02/2020: Patsy has completed all of his pretransplant evaluation at [facility] including cardiology visit 11 9 which showed ejection fraction 60%. I have contacted Dr. Hall who noted that today will be his last day of Velcade and we will hold his daratumumab. He was to have a COVID-19 teston 07/11/2020 for planned stem cell collection 07/17 and transplant on 07/23. I clarified with the staff at [facility] this this may be performed at [facility] and forwarded to them. His neuropathy in [...] He was evaluated by Dr. Small at [facility] on 04/26/2020. Angel and his note [...] has remarkably improved (>90% reduction past month). Millv[place] light chains decreased from 12,000 to 42. [...] marijuana and would discuss this with his rd manager whetherthis would interfere with dialysis. We will also follow closely for cytopenias and reviewed infectious precautions. He has a son from [place] who plans to visit on Thursday and [...] but he may address this with our [facility] nutrition team. He will also receivechemotherapy class with our nurses in the infusion center. PRELIMINARY HISTORY (from initial consult 03/08/2020): This is a 76-year-old male who was transferred from [facility] emergency room by [facility] due to critical potassium 8.7 [...] day 0 autologous stem cell transplant 07/25/2020at [facility]. 11/26/2020: Follow-up bone marrow aspiration [...] 3.4, Globulin (PEP) 2.8, Albumin/Globulin (PEP) 1.2, Ttslc-0-Pigjukghi 0.2, Hovjs-9-Xwfylroec 0.9, Beta Globulins 0.9, Bfzs-9-Tachwydyitgxx 2.3, Gamma Globulins 0.7, M-Anselmo Not observed, PEP Note , IgG 749, IgA 89, IgM 21, Serum Immunofixation , Free [place] LC, Quant 30.3 H, Free Lambda LC, Quant 16.7, Free [place]/Lambda Ratio 1.81 H 02/20/21 11:25: PHA Creatinine [...] ASCT Day 0 07/25/2020. 11/26/2020: Followup of [facility] end of therapy bone marrow biopsy 10/18/2020--no [...] for coordination of care (as documented) and tebs-ax-altv counseling of patient and/or family. Dictated By: Brook Huddleston MD DD/ 1449 Signed By: <Electronically signed by MD Brook Huddleston> 02/27/212051 [facility] Work Phone: [phone]) 341-647307-14-2021 Progress note Author Brook Huddleston [facility] February 27, 2021 8:52pm Note Date/Time February 27, 2021 2:50 pm [facility] [place] [address] Hem/Onc Follow Up Note - OP Signed Patient: Patsy Cunningham MR#: [id number] : 1945 Acct:[id number] Age/Sex: 76 / M Type: REG RCR Copies to: MD Quique English MD Katherine M McGraw, HAND [employer]MENT WINDER Helen R Heath,MD~ Subjective Date/Time of Service: Date of Service: [...] bone marrow biopsy at [facility] on 10/18/2020. No evidence of MRD--0.5% plasma cells andno clonal plasma cells suggestive of residual myeloma. Tolerating maintenance Revlimid 5mg daily well. No bone pain and normal renal function--Dr. Vincent hasreleased for annual nephrology followup. He is fully vaccinated for [id number] and I contacted Dr. Hall for coordination [...] marrow biopsy--I briefly discussed Revlimidmaintenance with Mr. Cunningham and his . I will contact patient after bone marrow results to confirm plan with Dr. Hall and f/u with him in about 6 weeks with myeloma labs. 07/02/2020: Patsy has completed all of his pretransplant evaluation at [facility] including cardiology visit 11 9 which showed ejection fraction 60%. I have contacted Dr. Hall who noted that today will be his last day of Velcade and we will hold his daratumumab. He was to have a COVID-19 teston 07/11/2020 for planned stem cell collection 07/17 and transplant on 07/23. I clarified with the staff at [facility] this this may be performed at [facility] and forwarded to them. His neuropathy in [...] He was evaluated by Dr. Small at [facility] on 04/26/2020. Angel and his note [...] has remarkably improved (>90% reduction past month). [place] light chains decreased from 12,000 to 42. [...] marijuana and would discuss this with his rd manager whetherthis would interfere with dialysis. We will also follow closely for cytopenias and reviewed infectious precautions. He has a son from [place] who plans to visit on Thursday and [...] but he may address this with our [facility] nutrition team. He will also receivechemotherapy class with our nurses in the infusion center. PRELIMINARY HISTORY (from initial consult 03/08/2020): This is a 76-year-old male who was transferred from [place] [facility] emergency room by [facility] due to critical [...] day 0 autologous stem cell transplant 07/25/2020at [facility]. 11/26/2020: Follow-up bone marrow aspiration [...] Negative for environmental allergies and food allergies. [facility] - History Attestation statement: The following information [...] 3.4, Globulin (PEP) 2.8, Albumin/Globulin (PEP) 1.2, Dgakl-7-Enrfcmlsx 0.2, Oqoat-8-Hgoiqvziq 0.9, Beta Globulins 0.9, Byzr-7-Tbiahikvsjbok 2.3, Gamma Globulins 0.7, M-Anselmo Not observed, PEP Note , IgG 749, IgA 89, IgM 21, Serum Immunofixation , Free [place] LC, Quant 30.3 H, Free Lambda LC, Quant 16.7, Free [place]/Lambda Ratio 1.81 H 02/20/21 11:25: PHA Creatinine [...] ASCT Day 0 07/25/2020. 11/26/2020: Followup of [facility] end of therapy bone marrow biopsy 10/18/2020--no [...] for coordination of care (as documented) and mgns-kc-lijv counseling of patient and/or family. Dictated By: Brook Huddleston MD DD/ 144 Signed By: <Electronically signed by MD Brook Huddleston> 02/27/212051 [facility] Work Phone: [phone]) 977-375604-12-2021 Progress note Author Brook Huddleston [facility] November 26, 2020 6:26pm Note Date/Time November 26, 2020 11: 21[facility] [place] [address] Hem/Onc Follow Up Note - OP Signed Patient: Patsy Cunningham MR#: [id number] : 1945 Acct:[id number] Age/Sex: 75 / M Type: REG RCR Copies to: MD Helen Jaramillo MD~ Subjective Date/Time of Service: Date of Service: 11/26/2020 Time of Service: 11:20 Chief Complaint: Patient is here today for 1 month follow up visit for 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 He had bone biopsy and labs done at in [place]. No new concerns HPI: 11/26/2020: Patsy is here for followup after D86 bone marrow biopsy at [facility] on 10/18/2020. No evidence of MRD--0.5% plasma cells andno clonal plasma cells suggestive of residual myeloma. Tolerating maintenance Revlimid 5mg daily well. No bone pain and normal renal function--Dr. Vincent hasreleased for annual nephrology followup. He is fully vaccinated for [id number] and I contacted Dr. Hall for coordination [...] marrow biopsy--I briefly discussed Revlimidmaintenance with Mr. Cunningham and his . I will contact patient after bone marrow results to confirm plan with Dr. Hall and f/u with him in about 6 weeks with myeloma labs. 07/02/2020: Patsy has completed all of his pretransplant evaluation at [facility] including cardiology visit 11 9 which showed ejection fraction 60%. I have contacted Dr. Hall who noted that today will be his last day of Velcade and we will hold his daratumumab. He was to have a COVID-19 test on 07/11/2020 for planned stem cell collection 07/17 and transplant on 07/23. I clarified with the staff at [facility] this this may be performed at [facility] and forwarded to them. His neuropathy in [...] He was evaluated by Dr. Small at [facility] on 04/26/2020. Angel and his note [...] has remarkably improved (>90% reduction past month). [place] light chains decreased from 12,000 to 42. [...] marijuana and would discuss this with his rd manager whetherthis would interfere with dialysis. We will also follow closely for cytopenias and reviewed infectious precautions. He has a son from [place] who plans to visit on Thursday and [...] a 75-year-old male who was transferred from [place] emergency room by [facility] due to critical [...] mg weekly. 04/09/2020: Under direction of Dr. aHll, in early April we added Revlimid 5 mg every other day of each 21-day cycle with cycle 2 due to excellent response of kappa light chains. 04/26/2020: Malignant hematology eval for possible high-dose chemotherapy/autologous stem cell transplant. He was able to stop dialysis 04/24/2020. Given Velcade only (hold daratumumab) on 07/02/2020. 07/25/2020: Melphalan 100mg/m2 IV day 0 autologous stem cell transplant 07/25/2020at [facility]. 11/26/2020: Follow-up bone marrow aspiration [...] Negative for environmental allergies and food allergies. [facility] - History Attestation statement: The following information [...] 10/08/20 10:02 10/08/20 10:02 Outside Labs: 10/18/2020 ([facility]): WBC 6400, Hg 11.8, Hct 35.4, Platelets 177,000; MCV 103, ANC 4810 Na 136, K 4.4, BUN 18, Creat 0.89, Glu 190, Ca 9.8, Alb 4.3 TB 0.4, AST 23, ALT 27, AP 90 - Impressions No new imaging for review. - Other Results Results/Comments: 10/18/2020 bone marrow aspirate and biopsy without MRD at [facility]. Assessment and Plan - TNM Staging [...] ASCT Day 0 07/25/2020. 11/26/2020: Followup of [facility] end of therapy bone marrow biopsy 10/18/2020--no [...] for coordination of care (as documented) and rmca-dr-svzn counseling of patient and/or family. Dictated By: Brook Huddleston MD DD/ 1120 Signed By: <Electronically signed by MD Brook Huddleston> 11/26/20 7010 [facility] Work Phone: 1([phone]) 375-148904-12-2021 Progress note Author Brook Huddleston [facility] November 26, 2020 6:26pm Note Date/Time November 26, 2020 11: 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 He had bone biopsy and labs done at in [place]. No new concerns HPI: 11/26/2020: Patsy is here for followup after D86 bone marrow biopsy at [facility] on 10/18/2020. No evidence of MRD--0.5% plasma cells andno clonal plasma cells suggestive of residual myeloma. Tolerating maintenance Revlimid 5mg daily well. No bone pain and normal renal function--Dr. Vincent hasreleased for annual nephrology followup. He is fully vaccinated for [id number] and I contacted Dr. Hall for coordination [...] marrow biopsy--I briefly discussed Revlimidmaintenance with Mr. Cunningham and his . I will contact patient after bone marrow results to confirm plan with Dr. Hall and f/u with him in about 6 weeks with myeloma labs. 07/02/2020: Patsy has completed all of his pretransplant evaluation at [facility] including cardiology visit 11 9 which showed ejection fraction 60%. I have contacted Dr. Hall who noted that today will be his last day of Velcade and we will hold his daratumumab. He was to have a COVID-19 test on 07/11/2020 for planned stem cell collection 07/17 and transplant on 07/23. I clarified with the staff at [facility] this this may be performed at [facility] and forwarded to them. His neuropathy in [...] He was evaluated by Dr. Small at [facility] on 04/26/2020. Angel and his note [...] has remarkably improved (>90% reduction past month). [place] light chains decreased from 12,000 to 42. [...] marijuana and would discuss this with his rd manager whetherthis would interfere with dialysis. We will also follow closely for cytopenias and reviewed infectious precautions. He has a son from [place] who plans to visit on Thursday and [...] but he may address this with our [facility] nutrition team. He will also receivechemotherapy class with our nurses in the infusion center. PRELIMINARY HISTORY (from initial consult 03/08/2020): This is a 75-year-old male who was transferred from [place] emergency room by [facility] due to critical potassium 8.7 [...] to be coordinated with nursing staffdue to [facility]. - Summary of Therapies [...] day 0 autologous stem cell transplant 07/25/2020at [facility]. 11/26/2020: Follow-up bone marrow aspiration [...] 10/08/20 10:02 10/08/20 10:02 Outside Labs: 10/18/2020 ([facility]): WBC 6400, Hg 11.8, Hct 35.4, Platelets 177,000; MCV 103, ANC 4810 Na 136, K 4.4, BUN 18, Creat 0.89, Glu 190, Ca 9.8, Alb 4.3 TB 0.4, AST 23, ALT 27, AP 90 - Impressions No new imaging for review. - Other Results Results/Comments: 10/18/2020 bone marrow aspirate and biopsy without MRD at [facility]. Assessment and Plan - TNM Staging [...] ASCT Day 0 07/25/2020. 11/26/2020: Followup of [facility] end of therapy bone marrow biopsy 10/18/2020--no [...] for coordination of care (as documented) and xqel-vg-agei counseling of patient and/or family. Dictated By: Brook Huddleston MD DD/ 1120 Signed By: <Electronically signed by MD Brook Huddleston> 11/26/20 1826 [facility] Work Phone: 1(992) 883-495703-02-2021 Progress note Author Brook Huddleston [facility] October 15, 2020 10:42pm Note Date/Time October 15, 2020 10:2 6am [facility] [place] [address] Hem/Onc Follow Up Note - OP Signed Patient: Patsy Cunningham MR#: [id number] : 1945 Acct:[id number] Age/Sex: 75 / M Type: REG RCR [...] marrow biopsy--I briefly discussed Revlimidmaintenance with Mr. Cunningham and his . I will contact patient after bone marrow results to confirm plan with Dr. Hall and f/u with him in about 6 weeks with myeloma labs. 07/02/2020: Patsy has completed all of his pretransplant evaluation at [facility] including cardiology visit 11 which showed ejection fraction 60%. I have contacted Dr. Hall who noted that today will be his last day of Velcade and we will hold his daratumumab. He was to have a COVID-19 teston 07/11/2020 for planned stem cell collection 07/17 and transplant on 07/23. I clarified with the staff at [facility] this this may be performed at [facility] and forwarded to them. His neuropathy in [...] was evaluated by Dr. Quique Hall at [facility] on 04/26/2020. Don and his note [...] has remarkably improved (>90% reduction past month). [place] light chains decreased from 12,000 to 42. [...] marijuana and would discuss this with his rd manager whetherthis would interfere with dialysis. We will also follow closely for cytopenias and reviewed infectious precautions. He has a son from [place] who plans to visit on Thursday and [...] a 75-year-old male who was transferred from [place] emergency room by [facility] due to critical [...] day 0 autologous stem cell transplant 07/25/2020at [facility]. ROS Details: All systems reviewed [...] Negative for environmental allergies and food allergies. [facility] - History Attestation statement: The following information [...] 48.3, U Random Total Protein 4.7, U Hwoka-8-Xfouiqpc (%) 7.2, U Random p-5-Qrmbzywu % 11.5, U Random b-Globulin % 12.0, U Random Gamma Glob % 21.1, U Random M-Anselmo (%) Not observed, Urine Random PEP Note , Urine Immunofixation 10/08/20 10:02: Serum Total Protein 5.9 L, Albumin (Send Out) 3.4, Globulin (PEP) 2.5, Albumin/Globulin (PEP) 1.4, Oynjn-2-Vgerawgkh 0.2, Pjkjt-8-Muqcklfnb 0.9, Beta Globulins 0.9, Gamma Globulins 0.5, M-Anselmo Not observed, PEP Note , IgG 525 L, IgA 56 L, IgM 16, Serum Immunofixation , Free [place] LC, Quant 8.7, Free Lambda LC, Quant 3.9 L, Free [place]/Lambda Ratio 2.23 H 10/08/20 10:02: PHA Creatinine [...] % (Auto) 79.2, Lymph % (Auto) 11.3, [place] % (Auto) 6.7, Eos % (Auto) 2.5, Baso % (Auto) 0.3, Neut # (Auto) 4.0, Lymph # (Auto) 0.6 L, [place] # (Auto) 0.3, Eos # (Auto) 0.1, [...] for coordination of care (as documented) and roqb-ha-fdvp counseling of patient and/or family. Dictated By: Brook Huddleston MD DD/ 1020 Signed By: <Electronically signed by MD Brook Huddleston> 10/15/20 0943 [facility] Work Phone: 1([phone]) 843-972503-02-2021 Progress note Author Brook Flaquito [facility] October 15, 2020 10:42pm Note Date/Time October 15, 2020 10:2 6am [facility] at [address] [address] Hem/Onc Follow Up Note - OP Signed Patient: Patsy Cunningham MR#: [id number] : 1945 Acct:[id number] Age/Sex: 75 / M Type: REG RCR [...] marrow biopsy--I briefly discussed Revlimidmaintenance with Mr. Cunningham and his . I will contact patient after bone marrow results to confirm plan with Dr. Hall and f/u with him in about 6 weeks with myeloma labs. 07/02/2020: Patsy has completed all of his pretransplant evaluation at [facility] including cardiology visit 11 9 which showed ejection fraction 60%. I have contacted Dr. Hall who noted that today will be his last day of Velcade and we will hold his daratumumab. He was to have a COVID-19 teston 07/11/2020 for planned stem cell collection 07/17 and transplant on 07/23. I clarified with the staff at [facility] this this may be performed at [facility] and forwarded to them. His neuropathy in [...] was evaluated by Dr. Quique Hall at [facility] on 04/26/2020. Angel and his note [...] has remarkably improved (>90% reduction past month). [place] light chains decreased from 12,000 to 42. [...] marijuana and would discuss this with his rd manager whetherthis would interfere with dialysis. We will also follow closely for cytopenias and reviewed infectious precautions. He has a son from [place] who plans to visit on Thursday and [...] but he may address this with our [facility] nutrition team. He will also receivechemotherapy class with our nurses in the infusion center. PRELIMINARY HISTORY (from initial consult 03/08/2020): This is a 75-year-old male who was transferred from [facility] emergency room by [facility] due to critical [...] to be coordinated with nursing staffdue to [facility]. - Summary of Therapies [...] day 0 autologous stem cell transplant 07/25/2020at [facility]. ROS Details: All systems reviewed [...] Negative for environmental allergies and food allergies. [facility] - History Attestation statement: The following information [...] 48.3, U Random Total Protein 4.7, U Kkarn-3-Gieppqzv (%) 7.2, U Random s-4-Hddaiehl % 11.5, U Random b-Globulin % 12.0, U Random Gamma Glob % 21.1, U Random M-Anselmo (%) Not observed, Urine Random PEP Note , Urine Immunofixation 10/08/20 10:02: Serum Total Protein 5.9 L, Albumin (Send Out) 3.4, Globulin (PEP) 2.5, Albumin/Globulin (PEP) 1.4, Kdaio-4-Cqqkioyym 0.2, Hqrpn-9-Zxentzqtq 0.9, Beta Globulins 0.9, Gamma Globulins 0.5, M-Anselmo Not observed, PEP Note , IgG 525 L, IgA 56 L, IgM 16, Serum Immunofixation , Free [place] LC, Quant 8.7, Free Lambda LC, Quant 3.9 L, Free [place]/Lambda Ratio 2.23 H 10/08/20 10:02: PHA Creatinine [...] % (Auto) 79.2, Lymph % (Auto) 11.3, [place] % (Auto) 6.7, Eos % (Auto) 2.5, Baso % (Auto) 0.3, Neut # (Auto) 4.0, Lymph # (Auto) 0.6 L, [place] # (Auto) 0.3, Eos # (Auto) 0.1, [...] for coordination of care (as documented) and jdlf-ff-cbzt counseling of patient and/or family. Dictated By: Brook Huddleston MD DD/ 1021 Signed By: <Electronically signed by MD Brook Huddleston> 10/15/20 [facility] Work Phone: [phone] Progress note Author Brook Huddleston [facility] July 02, 2020 10:43am Note Date/Time July 02, 2020 9:04am [facility] [address] [address] Hem/Onc Follow Up Note - OP Signed Patient: Patsy Cunningham MR#: [id number] : 1945 Acct:[id number] Age/Sex: 75 / M Type: REG RCR [...] completed all of his pretransplant evaluation at [facility] including cardiology visit 11 which showed ejection fraction 60%. I have contacted Dr. Hall who noted that today will be his last day of Velcade and we will hold his daratumumab. He was to have a COVID-19 teston 07/11/2020 for planned stem cell collection 07/17 and transplant on 07/23. I clarified with the staff at [facility] this this may be performed at [facility] and forwarded to them. His neuropathy in [...] He was evaluated by Dr. Small at [facility] on 04/26/2020. Angel and his note [...] has remarkably improved (>90% reduction past month). Millv[place] light chains decreased from 12,000 to 42. [...] marijuana and would discuss this with his rd manager whetherthis would interfere with dialysis. We will also follow closely for cytopenias and reviewed infectious precautions. He has a son from [place] who plans to visit on Thursday and [...] a 75-year-old male who was transferred from [facility] emergency room by [facility] due to critical [...] to be coordinated with nursing staffdue to [facility]- visitor restriction policy. - Summary of Therapies [...] 0 autologous stem cell transplant 07/23/2020 at [facility]. ROS Details: All systems reviewed & [...] Negative for environmental allergies and food allergies. [facility] - History Attestation statement: The following information [...] Neut % (Auto)77.6, Lymph % (Auto) 12.3, Pat[place] % (Auto) 7.3, Eos % (Auto) 2.1, Baso % (Auto) 0.7, Neut # (Auto) 6.7, Lymph # (Auto) 1.1, Pat[place] # (Auto) 0.6, Eos # (Auto) 0.2,Baso # (Auto) 0.1, Nucleated RBC % (auto) 0.0 - Other Results Results/Comments: [facility], [address] [place] [address] and TRANSTHORACIC ECHOCARDIOGRAM REPORT Patient Name: PATSY CUNNINGHAM Reading Physician: [id number] Ti Grayson MD Study Date: 06/25/2020 Referring Physician: Quique Hall MRN/PID: [id number] PCP: Accession/Order#: [id number] Department Location: [facility] Echo Lab Date of : 1945 Fellow: Gender: M Nurse: Admit Date: Medical Coding Instructor: Lavonne Turcios [facility] Admission Status: Outpatient Additional Staff: Height: 180.34 cm CC Report to: Weight: 90.72 kg Study Type: Onco-Cardiology Echo BSA: 2.11 m2 Blood Pressure: 135 /82 mmHg Diagnosis/ICD: Z94.84-Stem cell transplant status Indication: Multiple myeloma; Stem-cell transplant Procedure/CPT: Echo Complete w Full Doppler-94874; 3D Rendering w/o independent workstation-[id number]; Myocardial Strain Imaging-95883 CONCLUSIONS: 1. The left ventricular systolic function is normal with a 60% estimated ejection fraction. 2. Spectral Doppler shows an impaired relaxation pattern of left ventricular diastolic filling. 3. Mild aortic valve stenosis. 4.Strain values are equivocal. [id number] Ti Grayson MD Electronically signed on 06/25/2020 [...] management will occur as an inpatient in [place]. Increased peripheral neuropathy complaints in bilateral hands [...] for coordination of care (as documented) and mmai-zy-mawy counseling of patient and/or family. Dictated By: Brook Huddleston MD DD/ 3 Signed By: <Electronically signed by MD Brook Huddleston> 07/02/20 [address] [facility] Work Phone: [phone] Progress note Author Brook Huddleston [facility] July 02, 2020 10:43am Note Date/Time July 02, 2020 9:04am [facility] [place] [address] Hem/Onc Follow Up Note - OP Signed Patient: Patsy Cunningham MR#: [id number] : 1945 Acct:[id number] Age/Sex: 75 / M Type: REG RCR [...] completed all of his pretransplant evaluation at [facility] including cardiology visit 11 which showed ejection fraction 60%. I have contacted Dr. Hall who noted that today will be his last day of Velcade and we will hold his daratumumab. He was to have a COVID-19 teston 07/11/2020 for planned stem cell collection 07/17 and transplant on 07/23. I clarified with the staff at [facility] this this may be performed at [facility] and forwarded to them. His neuropathy in [...] He was evaluated by Dr. Small at [facility] on 04/26/2020. Angel and his note [...] has remarkably improved (>90% reduction past month). [place] light chains decreased from 12,000 to 42. [...] marijuana and would discuss this with his rd manager whetherthis would interfere with dialysis. We will also follow closely for cytopenias and reviewed infectious precautions. He has a son from [place] who plans to visit on Thursday and [...] a 75-year-old male who was transferred from [facility] emergency room by [facility] due to critical [...] 0 autologous stem cell transplant 07/23/2020 at [facility]. ROS Details: All systems reviewed & [...] Negative for environmental allergies and food allergies. [facility] - History Attestation statement: The following information [...] Neut % (Auto)77.6, Lymph % (Auto) 12.3, [place] % (Auto) 7.3, Eos % (Auto) 2.1, Baso % (Auto) 0.7, Neut # (Auto) 6.7, Lymph # (Auto) 1.1, [place] # (Auto) 0.6, Eos # (Auto) 0.2,Baso # (Auto) 0.1, Nucleated RBC % (auto) 0.0 - Other Results Results/Comments: [facility], [address] [place] [address] and TRANSTHORACIC ECHOCARDIOGRAM REPORT Patient Name: PATSY CUNNINGHAM Erick Physician: [id number] Ti Grayson MD Study Date: 06/25/2020 Referring Physician: Quique Hall MRN/PID: [id number] PCP: Accession/Order#: [id number] Department Location: [facility] Echo Lab Date of : 1945 Fellow: Gender: M Nurse: Admit Date: Medical Coding Instructor: Lavonne Turcios [facility] Admission Status: Outpatient Additional Staff: Height: 180.34 cm CC Report to: Weight: 90.72 kg Study Type: Onco-Cardiology Echo BSA: 2.11 m2 Blood Pressure: 135 /82 mmHg Diagnosis/ICD: Z94.84-Stem cell transplant status Indication: Multiple myeloma; Stem-cell transplant Procedure/CPT: Echo Complete w Full Doppler-50032; 3D Rendering w/o independent workstation-[id number]; Myocardial Strain Imaging-19407 CONCLUSIONS: 1. The left ventricular systolic function is normal with a 60% estimated ejection fraction. 2. Spectral Doppler shows an impaired relaxation pattern of left ventricular diastolic filling. 3. Mild aortic valve stenosis. 4.Strain values are equivocal. [id number] Ti Grayson MD Electronically signed on 06/25/2020 [...] management will occur as an inpatient in [place]. 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 Hall early Apr 2020. --25% Velcade 06/04/2020, last dose 07/02/2020. HDC (Melphalan)/PBSCT in early Jul 2020. Goal of Treatment: Control - Time with Patient Total Time Spent with Patient: 30 min Coordination of Care & Counseling Time: Greater than 50% of time spent with patient was for coordination of care (as documented) and emfk-bn-fbpk counseling of patient and/or family. Dictated By: Brook Huddleston MD DD/ Signed By: <Electronically signed by MD Brook Huddleston> 07/02/20 [facility] Work Phone: [phone] Progress note Author Brook Huddleston [facility] June 04, 2020 12:42pm Note Date/Time June 04, 2020 8 :39am [facility] [place] [id number] Hem/Onc Follow Up Note - OP Signed Patient: Patsy Cunningham MR#: [id number] : 1945 Acct:[id number] Age/Sex: 75 / M Type: REG RCR Copies to: Quique Hall MD Medicine [facility] Palliative Helen Heath MD~ Subjective Date/Time of [...] He was evaluated by Dr. Small at [facility] on 04/26/2020. Angel and his note [...] has remarkably improved (>90% reduction past month). [place] light chains decreased from 12,000 to 42. [...] marijuana and would discuss this with his rd manager whetherthis would interfere with dialysis. We will also follow closely for cytopenias and reviewed infectious precautions. He has a son from [place] who plans to visit on Thursday and [...] but he may address this with our [facility] nutrition team. He will also receivechemotherapy class with our nurses in the infusion center. PRELIMINARY HISTORY (from initial consult 03/08/2020): This is a 75-year-old male who was transferred from [facility] emergency room by [facility] due to critical [...] Neut % (Auto)68.4, Lymph % (Auto) 14.8, Pat[place] % (Auto) 10.5, Eos % (Auto) 5.5, Baso % (Auto) 0.8, Neut # (Auto) 4.6, Lymph # (Auto) 1.0, [place] # (Auto) 0.7, Eos # (Auto) 0.4,Baso # (Auto) 0.1, Nucleated RBC % (auto) 0.0 05/24/20 10:02: Ur Random Albumin 50.8, U Random Total Protein 8.8, U Uebio-9-Unjaxpfk (%) 6.8, U Random e-9-Eryuoxuy % 19.6, U Random b-Globulin % 14.9, [...] Dr. Hall early Apr 2020. --25% Velcaamanda 06/04/2020. HDC (Melphalan)/PBSCT in late Jun 2020. Goal of Treatment: Control - Time with Patient Total Time Spent with Patient: 30 min Coordination of Care & Counseling Time: Greater than 50% of time spent with patient was for coordination of care (as documented) and bhqa-vw-zeev counseling of patient and/or family. Dictated By: Brook Huddleston MD DD/ 0838 Signed By: <Electronically signed by MD Brook Huddleston> 06/04/20 [facility] Work Phone: [phone] Progress note Author Brook Huddleston [facility] June 04, 2020 12:42pm Note Date/Time June 04, 2020 8 :39am [facility] [place] [id number] Hem/Onc Follow Up Note - OP Signed Patient: Patsy Cunningham MR#: [id number] : 1945 Acct:[id number] Age/Sex: 75 / M Type: REG RCR Copies to: Quique Hall MD Medicine [facility] Palliative Helen Heath MD~ Subjective Date/Time of [...] He was evaluated by Dr. Small at [facility] on 04/26/2020. Angel and his note [...] has remarkably improved (>90% reduction past month). [place] light chains decreased from 12,000 to 42. [...] marijuana and would discuss this with his rd manager whetherthis would interfere with dialysis. We will also follow closely for cytopenias and reviewed infectious precautions. He has a son from [place] who plans to visit on Thursday and [...] but he may address this with our [facility] nutrition team. He will also receivechemotherapy class with our nurses in the infusion center. PRELIMINARY HISTORY (from initial consult 03/08/2020): This is a 75-year-old male who was transferred from [facility] emergency room by [facility] due to critical potassium 8.7 [...] 28 Days #11 cap 05/07/20 [Rx Confirmed 10/19/20] oxycodone-acetaminophen [Percocet] 1 tab PO Q4H PRN [...] Neut % (Auto)68.4, Lymph % (Auto) 14.8, Pat[place] % (Auto) 10.5, Eos % (Auto) 5.5, Baso % (Auto) 0.8, Neut # (Auto) 4.6, Lymph # (Auto) 1.0, [place] # (Auto) 0.7, Eos # (Auto) 0.4,Baso # (Auto) 0.1, Nucleated RBC % (auto) 0.0 05/24/20 10:02: Ur Random Albumin 50.8, U Random Total Protein 8.8, U Dviuo-2-Ojdpzxeo (%) 6.8, U Random h-7-Wwvzbzbi % 19.6, U Random b-Globulin % 14.9, [...] for coordination of care (as documented) and tkeo-kr-xsls counseling of patient and/or family. Dictated By: Brook Huddleston MD DD/ 0838 Signed By: <Electronically signed by MD Brook Huddleston> 06/04/20 [facility] Work Phone: [phone]) [phone] Progress note Author Brook Huddleston [facility] May 07, 2020 10:50am Note Date/Time May 07, 2020 9:10am [facility] [place] [address] Hem/Onc Follow Up Note - OP Signed Patient: Patsy Cunningham MR#: [id number] : 1945 Acct:[id number] Age/Sex: 75 / M Type: REG RCR [...] He was evaluated by Dr. Small at [facility] on 04/26/2020. Angel and his note [...] has remarkably improved (>90% reduction past month). [place] light chains decreased from 12,000 to 42. [...] marijuana and would discuss this with his rd manager whetherthis would interfere with dialysis. We will also follow closely for cytopenias and reviewed infectious precautions. He has a son from [place] who plans to visit on Thursday and [...] but he may address this with our [facility] nutrition team. He will also receivechemotherapy class with our nurses in the infusion center. PRELIMINARY HISTORY (from initial consult 03/08/2020): This is a 75-year-old male who was transferred from [facility] emergency room by [facility] due to critical potassium 8.7 with elevated [...] to be coordinated with nursing staffdue to [facility]-19 visitor restriction policy. - Summary of Therapies [...] Negative for environmental allergies and food allergies. [facility] - History Attestation statement: The following information [...] % (Auto) 59.7, Lymph % (Auto) 19.5, Pat[place] % (Auto) 16.9, Eos % (Auto) 3.4, Baso % (Auto) 0.5, Neut # (Auto) 3.2, Lymph # (Auto) 1.0, [place] # (Auto) 0.9 H, Eos # (Auto) 0.2, Baso # (Auto) 0.0, Nucleated RBC % (auto) 0.3 04/30/20 09:10: Urine Immunofixation 04/30/20 08:15: Serum Total Protein 6.0, Albumin (Send Out) 3.2, Globulin (PEP) 2.8, Albumin/Globulin (PEP) 1.1, Labfu-5-Pzotbnxtl 0.3, Mjjwg-1-Mrwvbgijc 1.1 H,Beta Globulins 0.7, Gamma Globulins 0.7, M-Anselmo 0.5 H, PEP Note , MethylmalonicAcid 183, MMA Comment , IgG 763, IgA 36 L, IgM 31, Free [place] LC, Quant 22.5 H, Free Lambda LC, Quant 8.4, Free [place]/Lambda Ratio 2.68 H - Impressions No new [...] somepatients, and Dr. Hall meant with Mr. Cunningham and determine that based on his good physiologic health despite his advanced age that he is a candidate for high dose chemotherapy/stem cell transplant if cardiopulmonary work-up for this is suitable. Dr. Hall well discuss the case with [facility] hematology tumor board given his significant [...] replacement. He will continue weekly vitamin D2 odkehxq97,000 units orally for low 25 hydroxy vitamin [...] for coordination of care (as documented) and ilgf-lz-mjzi counseling of patient and/or family. Dictated By: Brook Huddleston MD DD/ 8 Signed By: <Electronically signed by MD Brook Huddleston> 05/07/20 [facility] Work Phone: [phone] Progress note Author Brook Huddleston [facility] May 07, 2020 10:50am Note Date/Time May 07, 2020 9:10am [facility] [place] [address] Hem/Onc Follow Up Note - OP Signed Patient: Patsy Cunningham MR#: [id number] : 1945 Acct:[id number] Age/Sex: 75 / M Type: REG RCR [...] He was evaluated by Dr. Small at [facility] on 04/26/2020. Angel and his note [...] has remarkably improved (>90% reduction past month). [place] light chains decreased from 12,000 to 42. [...] marijuana and would discuss this with his rd manager whetherthis would interfere with dialysis. We will also follow closely for cytopenias and reviewed infectious precautions. He has a son from [place] who plans to visit on Thursday and [...] a 75-year-old male who was transferred from [facility] emergency room by [facility] due to critical [...] 04/24/2020. Prior nephrolithiasis previously followed by Dr. eSals. ENDOCRINE: Negative for cold intolerance and heat [...] Negative for environmental allergies and food allergies. [facility] - History Attestation statement: The following information [...] % (Auto) 59.7, Lymph % (Auto) 19.5, Patillas % (Auto) 16.9, Eos % (Auto) 3.4, Baso % (Auto) 0.5, Neut # (Auto) 3.2, Lymph # (Auto) 1.0, [place] # (Auto) 0.9 H, Eos # (Auto) 0.2, Baso # (Auto) 0.0, Nucleated RBC % (auto) 0.3 04/30/20 09:10: Urine Immunofixation 04/30/20 08:15: Serum Total Protein 6.0, Albumin (Send Out) 3.2, Globulin (PEP) 2.8, Albumin/Globulin (PEP) 1.1, Hxrqb-2-Xgfhdqchx 0.3, Ggalm-6-Jrxfnzcfh 1.1 H,Beta Globulins 0.7, Gamma Globulins 0.7, M-Anselmo 0.5 H, PEP Note , MethylmalonicAcid 183, MMA Comment , IgG 763, IgA 36 L, IgM 31, Free [place] LC, Quant 22.5 H, Free Lambda LC, Quant 8.4, Free [place]/Lambda Ratio 2.68 H - Impressions No new [...] somepatients, and Dr. Hall meant with Mr. Cunningham and determine that based on his good physiologic health despite his advanced age that he is a candidate for high dose chemotherapy/stem cell transplant if cardiopulmonary work-up for this is suitable. Dr. Hall well discuss the case with [facility] hematology tumor board given his significant [...] replacement. He will continue weekly vitamin D2 oorfnqp57,000 units orally for low 25 hydroxy vitamin [...] for coordination of care (as documented) and lgqa-sg-hlvn counseling of patient and/or family. Dictated By: Brook Huddleston MD DD/ 8 Signed By: <Electronically signed by MD Brook Huddleston> 05/07/20 [facility] Work Phone: [phone] Progress note Author Brook Huddleston [facility] April 12, 2020 9:26am Note Date/Time April 09, 2020 8: 49am [place] [address] Hem/Onc Follow Up Note - OP Signed with Addenda Patient: Patsy Cunningham MR#: [id number] : 1945 Acct:[id number] Age/Sex: 75 / M Type: REG RCR Copies to: MD Quique English, MD Helen Heath MD~ ADDENDUM1 Addendum: [...] has remarkably improved (>90% reduction past month). [place] light chains decreased from 12,000 to 42. [...] marijuana and would discuss this with his rd manager whetherthis would interfere with dialysis. We will also follow closely for cytopenias and reviewed infectious precautions. He has a son from [place] who plans to visit on Thursday and [...] but he may address this with our [facility] nutrition team. He will also receivechemotherapy class with our nurses in the infusion center. PRELIMINARY HISTORY (from initial consult 03/08/2020): This is a 75-year-old male who was transferred from [facility] emergency room by [facility] due to critical [...] to be coordinated with nursing staffdue to [facility]-19 visitor restriction policy. - Summary of Therapies [...] Negative for environmental allergies and food allergies. [facility] - History Attestation statement: The following information [...] % (Auto) 65.3, Lymph % (Auto) 18.2, Pat[place] % (Auto) 13.2, Eos % (Auto) 3.0, Baso % (Auto) 0.3, Neut # (Auto) 3.0, Lymph # (Auto) 0.8 L, [place] # (Auto) 0.6, Eos # (Auto) 0.1, Baso # (Auto) 0.0, Nucleated RBC % (auto) 0.3 04/02/20 13:55: Ur Random Albumin 38.7, U Random Total Protein 6.6, U Zdsem-5-Mrysujou (%) 5.2, U Random s-2-Oyfnffmy % 16.3, U Random b-Globulin % 26.2, [...] % (Auto) 65.0, Lymph % (Auto) 18.1, [place] % (Auto) 14.5, Eos % (Auto) 2.0, Baso % (Auto) 0.4, Neut # (Auto) 2.9, Lymph # (Auto) 0.8 L, [place] # (Auto) 0.7, Eos # (Auto) 0.1, Baso # (Auto) 0.0, Nucleated RBC % (auto) 0.0 04/02/20 08:15: Serum Total Protein 6.8, Albumin (Send Out) 3.2, Globulin (PEP) 3.6, Albumin/Globulin (PEP) 0.9, Mtmem-4-Ggtqckxwm 0.3, Pjvjg-7-Knfvsatvu 1.1 H,Beta Globulins 0.8, Shig-7-Zzdjdyltyewzc 5.5 H, Gamma Globulins 1.4, M-Anselmo 1.2H, PEP Note , IgG 1563, IgA 36 L, IgM 47, Serum Immunofixation , Free [place] LC, Quant 42.2 H, Free Lambda LC, Quant 12.4, Free [place]/Lambda Ratio 3.40 H 04/02/20 08:15: Lactate Dehydrogenase [...] Hall noted he would meet with Mr. Cunningham to determine if he is a candidate for high dose chemotherapy/stem cell transplant. I sent an emailto Dr. Hall who may discuss the case with [facility] hematology tumorboard given his significant response [...] for coordination of care (as documented) and jslh-tp-lftr counseling of patient and/or family. Dictated By: Brook Hudldeston MD DD/ Signed By: <Electronically signed by MD Brook Huddleston> 04/09/20 [facility] [facility] Work Phone: [phone] Progress note Author Brook Huddleston [facility] April 12, 2020 9:26am Note Date/Time April 09, 2020 8: 49am [facility] [place] [address] Hem/Onc Follow Up Note - OP Signed with Addenda Patient: Patsy Cunningham MR#: [id number] : 1945 Acct:[id number] Age/Sex: 75 / M Type: REG RCR [...] has remarkably improved (>90% reduction past month). [place] light chains decreased from 12,000 to 42. [...] marijuana and would discuss this with his rd manager whetherthis would interfere with dialysis. We will also follow closely for cytopenias and reviewed infectious precautions. He has a son from [place] who plans to visit on Thursday and [...] but he may address this with our [facility] nutrition team. He will also receivechemotherapy class with our nurses in the infusion center. PRELIMINARY HISTORY (from initial consult 03/08/2020): This is a 75-year-old male who was transferred from [facility] emergency room by [facility] due to critical [...] to be coordinated with nursing staffdue to [facility] policy. - Summary of Therapies [...] Negative for environmental allergies and food allergies. [facility] - History Attestation statement: The following information [...] % (Auto) 65.3, Lymph % (Auto) 18.2, [place] % (Auto) 13.2, Eos % (Auto) 3.0, Baso % (Auto) 0.3, Neut # (Auto) 3.0, Lymph # (Auto) 0.8 L, [place] # (Auto) 0.6, Eos # (Auto) 0.1, Baso # (Auto) 0.0, Nucleated RBC % (auto) 0.3 04/02/20 13:55: Ur Random Albumin 38.7, U Random Total Protein 6.6, U Nslhr-5-Afzlwbvc (%) 5.2, U Random c-5-Uhdvxail % 16.3, U Random b-Globulin % 26.2, [...] % (Auto) 65.0, Lymph % (Auto) 18.1, Pat[place] % (Auto) 14.5, Eos % (Auto) 2.0, Baso % (Auto) 0.4, Neut # (Auto) 2.9, Lymph # (Auto) 0.8 L, Pat[place] # (Auto) 0.7, Eos # (Auto) 0.1, Baso # (Auto) 0.0, Nucleated RBC % (auto) 0.0 04/02/20 08:15: Serum Total Protein 6.8, Albumin (Send Out) 3.2, Globulin (PEP) 3.6, Albumin/Globulin (PEP) 0.9, Fxtfh-7-Ekehyhrrw 0.3, Bfyuc-7-Xbonmpenv 1.1 H,Beta Globulins 0.8, Gdnb-1-Wxowjzjswfpsd 5.5 H, Gamma Globulins 1.4, M-Anselmo 1.2H, PEP Note , IgG 1563, IgA 36 L, IgM 47, Serum Immunofixation , Free [place] LC, Quant 42.2 H, Free Lambda LC, Quant 12.4, Free [place]/Lambda Ratio 3.40 H 04/02/20 08:15: Lactate Dehydrogenase [...] Hall noted he would meet with Mr. Cunningham to determine if he is a candidate for high dose chemotherapy/stem cell transplant. I sent an emailto Dr. Hall who may discuss the case with [facility] hematology tumorboard given his significant response [...] for coordination of care (as documented) and dkam-jk-rope counseling of patient and/or family. Dictated By: Brook Huddleston MD DD/ [id number] Signed By: <Electronically signed by MD Brook Huddleston> 04/09/20 [id number] [facility] Work Phone: 1([phone]) 394-640107-30-2020 Progress note Author Brook Huddleston [facility] March 14, 2020 10:13pm Note Date/Time March 14, 2020 3:52 pm [facility] [place] [address] Hem/Onc Follow Up Note - OP Signed Patient: Patsy Cunningham MR#: [id number] : 1945 Acct:[id number] Age/Sex: 75 / M Type: REG RCR [...] marijuana and would discuss this with his rd manager whetherthis would interfere with dialysis. We will also follow closely for cytopenias and reviewed infectious precautions. He has a son from [place] who plans to visit on Thursday and [...] but he may address this with our [facility] nutrition team. He will also receivechemotherapy class with our nurses in the infusion center. PRELIMINARY HISTORY (from initial consult 03/08/2020): This is a 75-year-old male who was transferred from [facility] emergency room by [facility] due to critical potassium 8.7 with elevated [...] to be coordinated with nursing staffdue to [facility]- visitor restriction policy. - Summary of Therapies [...] Negative for environmental allergies and food allergies. [facility] - History Attestation statement: The following information [...] [Crestor] 5 mg PO DAILY #30 tab 07/25/20 [Rx Confirmed 03/14/20] sennosides [Senna Lax] 2 [...] ferritin 600.3 03/08/20 04:39: PHA Creatinine Clear [id number], Sodium 126 L, Potassium 4.2,Chloride 92 L, [...] % (Auto) 68.2, Lymph % (Auto) 19.5, Pat[place] % (Auto) 9.3, Eos % (Auto) 2.6, Baso % (Auto) 0.4, Neut # (Auto) 4.4, Lymph # (Auto) 1.2, [place] # (Auto) 0.6, Eos # (Auto) 0.2, [...] kappa, Glomerular Base Memb Ab 3, Free [place] LC, Quant 16995.9 H, Free Lambda LC, Quant11.9, Free [place]/Lambda Ratio 1063.02 H 03/05/2020: Serum protein electrophoresis [...] Hall noted he would meet with Mr. Cunningham to determine if he is a candidate for high dose chemotherapy/stem cell transplant. I will review his case and [facility] hematology tumor board once we have [...] for coordination of care (as documented) and bbda-me-suvo counseling of patient and/or family. Dictated By: Brook Huddleston MD DD/ [id number] Signed By: <Electronically signed by MD Brook Huddleston> 03/14/20 [id number] Work Phone: [phone]) 425-277607-30-2020 Progress note Author Brook Huddleston [facility] March 14, 2020 10:13pm Note Date/Time March 14, 2020 3:52 pm [facility] at [address] [address] Hem/Onc Follow Up Note - OP Signed Patient: Patsy Cunningham MR#: [id number] : 1945 Acct:[id number] Age/Sex: 75 / M Type: REG RCR [...] marijuana and would discuss this with his rd manager whetherthis would interfere with dialysis. We will also follow closely for cytopenias and reviewed infectious precautions. He has a son from [place] who plans to visit on Thursday and [...] but he may address this with our [facility] nutrition team. He will also receivechemotherapy class with our nurses in the infusion center. PRELIMINARY HISTORY (from initial consult 03/08/2020): This is a 75-year-old male who was transferred from [facility] emergency room by [facility] due to critical potassium 8.7 with elevated [...] to be coordinated with nursing staffdue to [facility]-19 visitor restriction policy. - Summary of Therapies [...] Negative for environmental allergies and food allergies. [facility] - History Attestation statement: The following information [...] ferritin 600.3 03/08/20 04:39: PHA Creatinine Clear [id number], Sodium 126 L, Potassium 4.2,Chloride 92 L, [...] % (Auto) 68.2, Lymph % (Auto) 19.5, Pat[place] % (Auto) 9.3, Eos % (Auto) 2.6, Baso % (Auto) 0.4, Neut # (Auto) 4.4, Lymph # (Auto) 1.2, [place] # (Auto) 0.6, Eos # (Auto) 0.2, [...] kappa, Glomerular Base Memb Ab 3, Free [place] LC, Quant 54948.9 H, Free Lambda LC, Quant11.9, Free [place]/Lambda Ratio 1063.02 H 03/05/2020: Serum protein electrophoresis [...] palpable, firm, warm area. Copies to: MD Heeln Marquez MD~ VENOUS DUPLEX, LEFT UPPER EXTREMITY [...] Hall noted he would meet with Chay Cunningham to determine if he is a candidate for high dose chemotherapy/stem cell transplant. I will review his case and [facility] hematology tumor board once we have [...] for coordination of care (as documented) and ymjj-wb-hsra counseling of patient and/or family. Dictated By: Brook Huddleston MD DD/ [id number] Signed By: <Electronically signed by MD Brook Huddleston> 03/14/20 [facility] Work Phone: Discharge summary [facility] January 22, 2024 5:01pm Note Date/Time January 22, 2024 5:01p m [facility] [address] [place] [address] Discharge Summary Signed Patient: Patys Cunningham MR#: [id number] : 1945 Acct:[id number] Age/Sex: 78 / M Adm Date: 4 Loc: Room: [address] [place] [address]: Clarence Miller DO Copies to: MD Orquidea Ashton MD Michael R. Frings, DO Richard R Keller, MD~ Providers Date of Discharge: 01/22/24 Discharging Provider: Clarence Miller Primary Care Provider: Helen Heath Consults: 01/20/24 16:06 Consult to Nephrology Routine Comment: Consulting Provider: Price Crain Has Provider Been Notified: Yes Date of Notification: 01/20/24 Time of Notification: 16:25 Reason for Consult: Acute Kidney Injury 01/21/24 10:48 Consult to Urology Routine Comment: Consulting Provider: Delmar Wilburn Reason For Exam: Pelvocaliectasis Has Provider Been Notified: Yes Date of Notification: 01/21/24 Time of Notification: 17:19 Discharge Diagnosis Final Diagnosis Final Discharge Diagnosis: Assessment and plan: 1. Complicated urinary tract infection with chronic suprapubic catheter 2. Leukocytosis 3. Acute kidney injury 4. Macrocytic anemia 5. Dehydration 6. Multiple Myeloma 7. Type 2 Diabetes mellitus 8. Coagulopathy 9. Hyponatremia 10. Non-Anion gap metabolic acidosis 11. 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 He has a complex medical history particularly from a urologic perspective and has indwelling suprapubic catheter chronically. Frequent urinary tract infections previously. In the emergency department his urinalysis was highly suggestive of infection showing 4+ bacteria, WBCs and 3+ occult blood. Subjective chills but no fevers noted. Leukocytosis of 11.1. Acute kidney injury beyond baseline CKD with creatinine of 3.07. Baseline creatinine usually holds near 1.9. He was hospitalized for complicated urinary tract infection. He was started on sepsis dosing of ceftriaxone given the complicated nature of his case and history of septic infections previously. Clinically quite dehydrated and was started on intravenous fluids. Leukocytosis down trended andhe exhibited no fevers while hospitalized. Each day he stated his energy level and overall malaise was improving. Encourage p.o. intake. Admits to drinking minimal water regularly. His serum creatinine improved minimally with IV hydration but consistently down trended a small amount with dehydration. Fractional excretion of sodium suggested intrinsic kidney injury with a level of4.8%. Nephrology was consulted for any further recommendations and a renal ultrasound was obtained to rule out any postrenal obstruction. This showed bilateral mild pelvocaliectasis and urology was consulted for any further recommendations regarding this finding. Full urology consult is pending on day of discharge 01/22/2024. Preliminary documentation indicates unlikely need for intervention while hospitalized. His serum creatinine continues to improve on IV fluids and it seems less acute injury is prolonged dehydration related acute tubular necrosis given the trajectory of improvement. I emphasized the importance of aggressive hydration with WATER in addition to his other beverages particularly over the next week inorder to fully resolve his renal dysfunction back to baseline. His losartan andmetformin will be held on discharge. 1 L bolus of fluid ordered prior to discharge in addition to his last fourth dose of intravenous Rocephin. 6 more days of oral cefdinir 300 mg twice daily prescribed on discharge. He will follow-up with his PCP, his regular urologist Dr. Cortez and nephrology as an outpatient. Of note if urology is able to evaluate the patient prior to his discharge this afternoon and wishes to keep the patient for procedure his discharge can be canceled Physical Examination: GENERAL APPEARANCE: Alert, up in bed AAOx3 HEENT: NCAT, moist mucous membranes NECK: Neck soft w/o masses, no JVD CARDIAC: Normal S1 and S2. No S3, S4 or murmurs. LUNGS: Clear to auscultation bilaterally. no wheeze/rhonchi/rales ABDOMEN: Positive bowel sounds. Soft, nontender. No guarding or signs of an acute abdomen, suprapubic catheter in place MUSCULOSKELETAL: No joint erythema or tenderness. EXTREMITIES: No clubbing, cyanosis or edema SKIN: Skin normal color, texture and turgor with no lesions or eruptions. PSYCHIATRIC: Appropriate mood and affect 45 minutes were spent coordinating the discharge of this patient. Time Spent with Patient Time spent providing/coordinating discharge services (# min): 45 Discharge Plan Discharge Plan Patient Disposition: Home Activity: No Activity Restriction Diet: Diabetic Additional Instructions: Maintain and routine care to suprapubic catheter. Instructions: Urinary Tract Infection, Adult (DC), Cefdinir, Know your Meds Prescriptions: New cefdinir 300 mg capsule 300 mg PO BID 6 Days Qty: 12 0RF Continued atorvastatin 20 mg Tablet 20 mg PO DAILY aspirin 81 mg Tablet,Delayed Release (Dr/Ec) 81 mg PO DAILY oxybutynin chloride 5 mg Tablet 10 mg PO BID famotidine 20 mg Tablet 20 mg PO DAILY insulin glargine [Lantus Solostar U-100 Insulin] 100 unit/mL (3 mL) insulin pen 45 unit SUBCUT QHS insulin lispro [Humalog KwikPen Insulin] 100 unit/mL insulin pen 8 unit SUBCUT TID.AC Rx Instructions: per sliding scale instructions acetaminophen [Tylenol] 325 mg tablet 650 mg PO Q6HR PRN (Reason: bladder pain) docusate sodium [Stool Softener] 100 mg capsule 100 mg PO DAILY cholecalciferol (vitamin D3) 50 mcg (2,000 unit) capsule 50 mcg PO DAILY Suleman Probiotic 14 billion cell capsule See Rx Instructions PO .once a day Rx Instructions: 1 capsule orally ONCE A DAY; multivitamin [Daily Multi-Vitamin] Tablet 1 tab PO DAILY Gentle Iron 28 mg iron-60mg -400 mcg-8 mcg capsule 1 cap PO QDAY nitrofurantoin macrocrystal 100 mg capsule 100 mg PO QHS PRN (Reason: infection) Rx Instructions: Take 1 capsule before cath change, the 1 capsule 12 hours after cath changed Discontinued metformin 500 mg Tablet 500 mg PO BID losartan 25 mg tablet 25 mg PO DAILY Follow Up: Helen Heath MD [Primary Care Provider] - 01/26/24 9:45 am (Post hospital appointment. Please call to reschedule if needed.) Orquidea Cortez MD [Active Staff] - (Please keep your appointment as scheduled.) Price Crain MD [Active Staff] - 03/08/24 1:40 pm Exam Physical Exam Vital Signs: Temp Pulse Resp BP Pulse Ox O2 Del Method 98.1 F 73 16 155/55 H 96 Room Air 01/22/24 12:00 01/22/24 12:00 01/22/24 12:00 01/22/24 12:00 01/22/24 12:00 01/22/24 12:00 Diagnostic Studies Completed and Pending Studies Pending studies at discharge: 01/19/24 15:36 Blood Culture Stat 01/23/24 05:00 Basic Metabolic Panel [CHEM] IN AM Complete Blood Count Auto Diff IN AM Preliminary micro results at discharge 01/19/24 15:36 Blood Culture - Preliminary Blood - Left Forearm No Growth 3 Days 01/19/24 14:53 Blood Culture - Preliminary Blood - Left Antecubital No Growth 3 Days Labs on day of discharge: 01/22/24 16:08: POC Glucose 142 01/22/24 11:36: POC Glucose 204 01/22/24 07:42: Corrected WBC 8.1, Uncorrected WBC Count 8.1, RBC 2.45 L, Hgb 8.9 L, Hct 26.0 L, MCV 106.2 H, MCH 36.5 H, MCHC 34.3, RDW 16.1 H, Plt Count 199, MPV 7.8, Neut % (Auto) 72.2, Lymph % (Auto) 17.0, Pat[place] % (Auto) 7.2, Eos % (Auto) 3.3, Baso % (Auto) 0.3, Nucleat RBC Rel Count 0.1, Neut # (Auto) 5.8, Lymph # (Auto) 1.4, [place] # (Auto) 0.6, Eos # (Auto) 0.3, Baso # (Auto) 0.0, PHA Creatinine Clear 26.98, Sodium 141, Potassium 4.1, Chloride 110 H, Carbon Dioxide 23.3, Anion Gap 11.8, BUN 31 H, Creatinine 2.58 H, Est GFR (CKD-EPI) 24.703, Glucose 51 L, Calcium 8.9, Iron 59, TIBC 164 L, Iron Saturation 36.0, Transferrin 117 L, Ferritin 488.7 H, Vitamin B12 426, Folate 15.7 01/22/24 06:28: POC Glucose 60 L* 01/21/24 20:27: POC Glucose 130 Documented By: Clarence Miller DO 01/22/24 16 47 Signed By: <Electronically signed by Clarence Miller DO> 01/22/24 [facility] Work Phone: Evaluation + Plan note No data available for this section [facility] evaluation + Plan note Future Appointments Appointment Date:04/01/2022 08:45:00 AM Scheduled Provider:Patsy Seals Jr., MD Location:[facility] Appointment Type:URO Office Visit Appointment Date:08/05/2022 08:45:00 AM Scheduled Provider:Patsy Seals Jr., MD Location:[facility] Appointment Type:URO Office Visit [facility] evaluation + Plan note Future Appointments Appointment Date:04/22/2022 10:30:00 AM Scheduled Provider:Patsy Seals Jr., MD Location:[facility] Appointment Type:URO Office Visit Appointment Date:08/05/2022 08:45:00 AM Scheduled Provider:Patsy Seals Jr., MD Location:[facility] Appointment Type:[facility]O [facility] Future Appointments Appointment Date:04/28/2022 12:15:00 PM Scheduled Provider: Location:[facility] Appointment Type:Urology CALL PAT FT Appointment Date:05/05/2022 09:30:00 AM Scheduled Provider: Location:[facility] Appointment Type:Urology FT Appointment Date:08/05/2022 08:45:00 AM Scheduled Provider:Patsy Seals Jr., MD Location:[facility] Appointment Type:URO Office Visit [facility] Evaluation + Plan note Future Appointments Appointment Date:04/28/2022 12:15:00 PM Scheduled Provider: Location:[facility] Appointment Type:Urology CALL PAT FT Appointment Date:05/05/2022 09:30:00 AM Scheduled Provider: Location:[facility] Appointment Type:Urology FT Appointment Date:08/05/2022 08:45:00 AM Scheduled Provider:Patsy Seals Jr., MD Location:[facility] Appointment Type:URO Office Visit Diagnostic Tests Pending * Urine Culture 04[facility]18/22 [facility] Future Appointments Appointment Date:05/06/2022 01:00:00 PM Scheduled Provider: Location:[facility] Appointment Type:URO Nurse Visit Appointment Date:06/04/2022 10:00:00 AM Scheduled Provider:Orquidea Cortez MD Location:[facility] Appointment Type:URO Office Visit Appointment Date:08/05/2022 08:45:00 AM Scheduled Provider:Patsy Seals Jr., MD Location:[facility] Appointment Type:URO [facility] Future Appointments Appointment Date:06/04/2022 10:00:00 AM Scheduled Provider:Orquidea Cortez MD Location:[facility] Appointment Type:URO Office Visit Appointment Date:08/05/2022 08:45:00 AM Scheduled Provider:Patsy Seals Jr., MD Location:[facility] Appointment Type:URO Office Visit [facility] Evaluation + Plan note Future Appointments Appointment Date:08/06/2022 10:00:00 AM Scheduled Provider:Orquidea Cortez MD Location:[facility] Appointment Type:URO Office Visit Diagnostic Tests Pending * Urine Culture 06/04/22 [facility] Future Appointments Appointment Date:08/06/2022 10:00:00 AM Scheduled Provider:Orquidea Cortez MD Location:[facility] Appointment Type:URO Office Visit [facility] evaluation + Plan note Future Appointments Appointment Date:07/04/2022 01:00:00 PM Scheduled Provider:Orquidea Cortez MD Location:[facility] Appointment Type:URO Office Visit Appointment Date:08/06/2022 10:00:00 AM Scheduled Provider:Orquidea Cortez MD Location:[facility] Appointment Type:URO Office Visit [facility] Evaluation + Plan note Future Appointments Appointment Date:07/07/2022 10:15:00 AM Scheduled Provider: Location:[facility] Appointment Type:Urology FT Appointment Date:07/07/2022 11:45:00 AM Scheduled Provider: Location:[facility] Appointment Type:Urology CALL PAT FT Appointment Date:08/06/2022 10:00:00 AM Scheduled Provider:Orquidea Cortez MD Location:[facility] Appointment Type:URO Office Visit Diagnostic Tests Pending * UTI ([facility]) 07/04/22 [facility] Evaluation + Plan note Future Appointments Appointment Date:08/25/2022 11:00:00 AM Scheduled Provider: Location:[facility] Appointment Type:URO Nurse Visit [facility] evaluation + Plan note Future Appointments Appointment Date:08/25/2022 11:00:00 AM Scheduled Provider: Location:[facility] Appointment Type:URO Nurse Visit Diagnostic Tests Pending * Urine Culture 08/19/22 [facility] Future Appointments Appointment Date:09/18/2022 09:15:00 AM Scheduled Provider:Orquidea Cortez MD Location:[facility] Appointment Type:URO Office Visit [facility] evaluation + Plan note Future Appointments Appointment Date:03/18/2023 10:45:00 AM Scheduled Provider:Orquidea Cortez MD Location:[facility] Appointment Type:URO Office Visit [facility] Evaluation + Plan note Future Appointments Appointment Date:10/17/2022 08:45:00 AM Scheduled Provider: Location:[facility] Appointment Type:Urology CALL PAT FT Appointment Date:10/20/2022 08:00:00 AM Scheduled Provider: Location:[facility] Appointment Type:Urology FT Appointment Date:03/18/2023 10:45:00 AM Scheduled Provider:[facility] Office Visit [facility] Evaluation + Plan note Future Appointments Appointment Date:11/21/2022 09:45:00 AM Scheduled Provider:Orquidea Cortez MD Location:[facility] Appointment Type:URO Office Visit Appointment Date:03/18/2023 10:45:00 AM Scheduled Provider:Orquidea Cortez MD Location:[facility] Appointment Type:URO Office Visit Diagnostic Tests Pending * Basic Metabolic Panel 11/03/22 [facility] Evaluation + Plan note Future Appointments Appointment Date:01/16/2023 10:00:00 AM Scheduled Provider: Location:[facility] Appointment Type:URO Nurse Visit Appointment Date:03/18/2023 10:45:00 AM Scheduled Provider:Orquidea Cortez MD Location:[facility] Appointment Type:URO Office Visit [facility] Evaluation + Plan note Future Appointments Appointment Date:02/13/2023 09:00:00 AM Scheduled Provider:Orquidea Cortez MD Location:[facility] Appointment Type:URO Office Visit Appointment Date:03/18/2023 10:45:00 AM Scheduled Provider:Orquidea Cortez MD Location:[facility] Appointment Type:URO Office Visit [facility] Evaluation + Plan note Future Appointments Appointment Date:07/22/2023 09:15:00 AM Scheduled Provider:Orquidea Cortez MD Location:[facility] Appointment Type:URO Office Visit Diagnostic Tests Pending * Urine Culture 07[facility]02/23 [facility] Future Appointments Appointment Date:08/11/2023 10:30:00 AM Scheduled Provider: Location:[facility] [place] Appointment Type:URO Nurse Visit [facility] evaluation + Plan note Future Appointments Appointment Date:08/31/2023 11:30:00 AM Scheduled Provider: Location:[facility] Appointment Type:URO Nurse Visit [facility] Evaluation + Plan note Future Appointments Appointment Date:08/31/2023 11:30:00 AM Scheduled Provider: Location:[facility] Appointment Type:URO Nurse Visit Diagnostic Tests Pending * [facility]rine [facility] Future App[facility]ments Appointment Date:10/12/2023 11:00:00 AM Scheduled Provider: Location:[facility] Appointment Type:URO Nurse Visit [facility] evaluation + Plan note Future Appointments Appointment Date:11/25/2023 01:00:00 PM Scheduled Provider: Location:[facility] [place] Appointment Type:URO Nurse Visit Appointment Date:01/28/2024 10:15:00 AM Scheduled Provider:Orquidea Cortez MD Location:[facility] [place] Appointment Type:URO Office Visit [facility] [place] Evaluation + Plan note Future Appointments Appointment Date:12/18/2023 11:00:00 AM Scheduled Provider: Location:[facility] [place] Appointment Type:URO Nurse Visit Appointment Date:01/28/2024 10:15:00 AM Scheduled Provider:Orquidea Cortez MD [facility] [place] Appointment Type:URO Office Visit [facility] Evaluation + Plan note Future Appointments Appointment Date:12/18/2023 11:00:00 AM Scheduled Provider: Location:[facility] [place] Appointment Type:URO Nurse Visit Appointment Date:01/28/2024 10:15:00 AM Scheduled Provider:Orquidea Cortez MD Location:[facility] Appointment Type:URO Office Visit Diagnostic Tests Pending * Urine [facility] Future App[facility]ments Appointment Date:01/08/2024 11:00:00 AM Scheduled Provider: Location:[facility] Appointment Type:URO Nurse Visit Appointment Date:01/28/2024 10:15:00 AM Scheduled Provider:Orquidea Cortez MD Location:[facility] Appointment Type:URO Office Visit [facility] evaluation + Plan note Future Appointments Appointment Date:01/28/2024 10:15:00 AM Scheduled Provider:Orquidea Cortez MD Location:[facility] Appointment Type:URO Office Visit [facility] evaluation + Plan note Future Appointments Appointment Date:01/28/2024 10:15:00 AM Scheduled Provider:Orquidea Cortez MD Location:[facility] Appointment Type:URO Office Visit Diagnostic Tests Pending * Urine Culture [facility]24 [facility] Future Appointments Appointment Date:01/28/2024 10:15:00 AM Scheduled Provider:Orquidea Cortez MD Location:[facility] Appointment Type:URO Office Visit Diagnostic Tests Pending * Urine Culture [facility] Future Appointments Appointment Date:03/15/2024 02:30:00 PM Scheduled Provider:CARLEY Damian APRN Makayla X Location:[facility] Appointment Type:URO Office Visit [facility] Evaluation + Plan note Future Appointments Appointment Date:04/05/2024 03:30:00 PM Scheduled Provider:CARLEY Damian APRN Makayla X Location:[facility] Appointment Type:URO Office Visit [facility] evaluation + Plan note Future Appointments Appointment Date:04/05/2024 03:30:00 PM Scheduled Provider:CARLEY Damian APRN Makayla X Location:[facility] Appointment Type:URO Office Visit Diagnostic Tests Pending * Urine Culture 03/15/24 [facility] Evaluation + Plan note Future Appointments Appointment Date:05/17/2024 02:30:00 PM Scheduled Provider:CARLEY Damian APRN, [place]la X Location:[facility] Appointment Type:URO Office Visit [facility] evaluation + Plan note Future Appointments Appointment Date:06/10/2024 11:30:00 AM Scheduled Provider:Orquidea Cortez MD Location:[facility] Appointment Type:URO Office Visit [facility] evaluation + Plan note Future Appointments Appointment Date:06/21/2024 12:30:00 PM Scheduled Provider:CARLEY Damian APRN Makayla X Location:[facility] Appointment Type:URO Office Visit [facility] Evaluation + Plan note Future Appointments Appointment Date:07/12/2024 09:00:00 AM Scheduled Provider:CARLEY Damian APRN, [place] X Location:[facility] Appointment Type:URO Office Visit [facility] evaluation + Plan note Future Appointments Appointment Date:08/09/2024 11:00:00 AM Scheduled Provider:CARLEY Damian APRN Makayla X Location:[facility] Appointment Type:URO Office Visit [facility] evaluation + Plan note Future Appointments Appointment Date:08/16/2024 11:20:00 AM Scheduled Provider:CARLEY Damian APRN Makayla X Location:[facility] Appointment Type:URO Office Visit Appointment Date:09/14/2024 10:45:00 AM Scheduled Provider:Orquidea Cortez MD Location:[facility] Appointment Type:URO Office Visit [facility] evaluation + Plan note Future Appointments Appointment Date:09/08/2024 03:10:00 PM Scheduled Provider:CARLEY Damian APRN Makayla X Location:[facility] Appointment Type:URO Complex Office Visit Appointment Date:09/14/2024 10:45:00 AM Scheduled Provider:Orquidea Cortez MD Location:[facility] Appointment Type:URO Office Visit Diagnostic Tests Pending * Urine Culture 08/16/24 [facility] Evaluation + Plan note Future Appointments Appointment Date:09/08/2024 03:10:00 PM Scheduled Provider:CARLEY Damian APRN, [place] X Location:[facility] Appointment Type:URO Complex Office Visit Appointment Date:09/14/2024 10:45:00 AM Scheduled Provider:Orquidea Cortez MD Location:[facility] Appointment Type:URO Office Visit [facility] evaluation + Plan note Future Appointments Appointment Date:09/08/2024 03:10:00 PM Scheduled Provider:CARLEY Damian APRN, [place] X Location:[facility] Appointment Type:URO Complex Office Visit [facility] evaluation + Plan note Future Appointments Appointment Date:09/27/2024 12:50:00 PM Scheduled Provider:CARLEY Damian APRN Makayla X Location:[facility] Appointment Type:URO Office Visit [facility] Evaluation + Plan note Future Appointments Appointment Date:09/27/2024 12:50:00 PM Scheduled Provider:Orzech [employer]ER, [employer] SAL[employer]NAGER-C, Makayla X Location:[facility] Appointment Type:URO Office Visit Diagnostic Tests Pending * Urine Culture 09/08/24 [facility] evaluation + Plan note Future Appointments Appointment Date:10/21/2024 02:30:00 PM Scheduled Provider:Pratima Reno PA-C Location:[facility] Appointment Type:URO Office Visit [facility] Evaluation + Plan note Future Appointments Appointment Date:11/30/2024 12:30:00 PM Scheduled Provider:Pratima Reno PA-C Location:[facility] Appointment Type:URO Office Visit Diagnostic Tests Pending * Urine Culture 11/07/24 [facility] evaluation + Plan note Future Appointments Appointment Date:01/11/2025 11:00:00 AM Scheduled Provider:Pratima Reno PA-C Location:[facility] Appointment Type:URO Office Visit Appointment Date:02/23/2025 01:00:00 PM Scheduled Provider:Orquidea Cortez MD Location:[facility] Appointment Type:URO Office Visit Diagnostic Tests Pending * Urine Culture 12/21/24 [facility] Evaluation + Plan note Future Appointments Appointment Date:02/01/2025 12:30:00 PM Scheduled Provider:Pratima Reno PA-C Location:[facility] Appointment Type:URO Office Visit Appointment Date:02/23/2025 01:00:00 PM Scheduled Provider:Orquidea Cortez MD Location:[facility] Appointment Type:URO Office Visit [facility] evaluation + Plan note Future Appointments Appointment Date:02/01/2025 12:30:00 PM Scheduled Provider:Pratima Reno PA-C Location:[facility] Appointment Type:URO Office Visit Appointment Date:02/23/2025 01:00:00 PM Scheduled Provider:Orquidea Cortez MD Location:[facility] Appointment Type:URO Office Visit Diagnostic Tests Pending * Urine Culture 01/11/25 [facility] Evaluation + Plan note Future Appointments Appointment Date:02/22/2025 12:30:00 PM Scheduled Provider:Pratima Reno PA-C Location:[facility] Appointment Type:URO Office Visit Appointment Date:02/23/2025 01:00:00 PM Scheduled Provider:Orquidea Cortez MD Location:[facility] Appointment Type:URO Office Visit [facility] evaluation + Plan note Future Appointments Appointment Date:02/23/2025 01:00:00 PM Scheduled Provider:Orquidea Cortez MD Location:[facility] Appointment Type:URO Office Visit Appointment Date:03/15/2025 11:00:00 AM Scheduled Provider:Pratima Reno PA-C Location:[facility] Appointment Type:URO Office Visit [facility] evaluation + Plan note Future Appointments Appointment Date:03/03/2025 03:30:00 PM Scheduled Provider: Location:[facility] Appointment Type:Surgical PAT FT Appointment Date:03/07/2025 12:45:00 PM Scheduled Provider: Location:[facility] Appointment Type:Surgery FT Appointment Date:03/15/2025 11:00:00 AM Scheduled Provider:Pratima Reno PA-C Location:[facility] Appointment Type:URO Office Visit [facility] Evaluation + Plan note Future Appointments Appointment Date:04/25/2025 01:45:00 PM Scheduled Provider:Orquidea Cortez MD Location:[facility] Appointment Type:URO Office Visit Diagnostic Tests Pending * Basic Metabolic Panel 03/27/25 [facility] Evaluation + Plan note Future Appointments Appointment Date:04/25/2025 01:45:00 PM Scheduled Provider:Orquidea Cortez MD Location:[facility] Appointment Type:URO Office Visit [facility] Evaluation note* Diagnosis Onset Date Resolution Status Anemia of renal disease it sales representative harsh B12 deficiency chronic Chemotherapy-induced peripheral neuropathy chronic Encounter for chemotherapy management chronic History of hemodialysis it sales representative harsh Iron deficiency anemia chron ic 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 Rash and nonspecific skin eruption chronic Steroid-induced diabetes mellitus chronic Superficial thrombophlebitis of left upper extremity chronic Acute renal failure on dialysis resolved [facility] Work Phone: Evaluation note* Diagnosis Prostate cancer (HCC)- Primary Malignant neoplasm of prostate Acquired ureteral stricture Neurogenic bladder Neurogenic bladder, NOS Benign prostatic hyperplasia with urinary obstruction [facility]- Primary Preoperative examination, [...] Ac[facility] Diagnosis Onset Date Resolution Status Anemia of renal disease it sales representative harsh B12 deficiency chronic Chemotherapy-induced peripheral neuropathy chronic Encounter for chemotherapy management chronic Encounter for coordination of complex care chronic History of anemia due to vitamin B12 deficiency chronic History of hemodialysis it sales representative harsh Iron deficiency anemia chron ic 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 Rash and nonspecific skin eruption chronic Steroid-induced diabetes mellitus chronic Superficial thrombophlebitis of left upper extremity chronic Urinary incontinence chronic Acute renal failure on dialysis resolved [facility] Work Phone: Evaluation noteNo assessment information available [facility] Work Phone: Evaluation note* Diagnosis Onset Date Resolution Status Anemia of renal disease it sales representative harsh B12 deficiency chronic Chemotherapy-induced peripheral neuropathy chronic Encounter for chemotherapy management chronic Encounter for coordination of complex care chronic History of anemia due to vitamin B12 deficiency chronic History of hemodialysis it sales representative harsh Iron deficiency anemia chron ic 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 Rash and nonspecific skin eruption chronic Steroid-induced diabetes mellitus chronic Superficial thrombophlebitis of left upper extremity chronic Urinary incontinence chronic Acute renal failure on dialysis resolved Chronic suprapubic catheter acute Anemia of renal disease it sales representative harhs B12 deficiency chronic Encounter for coordination of complex care chronic History of hemodialysis it sales representative harsh 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 [facility] Work Phone: Evaluation note* Diagnosis Onset Date Resolution Status Chronic suprapubic catheter acute Anemia of renal disease it sales representative harsh B12 deficiency chronic Encounter for coordination of complex care chronic History of hemodialysis it sales representative harsh 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 Anemia of chronic renal failure, stage 4 (severe) acute 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 Hydronephrosis acute Hyperkalemia acute [id number] acute Hypophosphatemia acute Stage 3b chronic kidney disease (CKD) acute 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 Anemia of renal disease it sales representative harsh B12 deficiency chronic Chemotherapy-induced peripheral neuropathy chronic Encounter for chemotherapy management chronic Encounter for coordination of complex care chronic History of anemia due to vitamin B12 deficiency chronic History of hemodialysis it sales representative harsh Iron deficiency anemia chron ic 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 Rash and nonspecific skin eruption chronic Steroid-induced diabetes mellitus chronic Superficial thrombophlebitis of left upper extremity chronic Urinary incontinence chronic Acute renal failure on dialysis resolved [facility] Work Phone: Evaluation note* Diagnosis Onset Date Resolution Status Anemia of chronic renal failure, stage 4 (severe) acute 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 Hydronephrosis acute Hyperkalemia acute [id number] acute Hypophosphatemia acute Stage 3b chronic kidney disease (CKD) acute 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 Anemia of renal disease it sales representative harsh B12 deficiency chronic Chemotherapy-induced peripheral neuropathy chronic Encounter for chemotherapy management chronic Encounter for coordination of complex care chronic History of anemia due to vitamin B12 deficiency chronic History of hemodialysis it sales representative harsh Iron deficiency anemia chron ic 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 Rash and nonspecific skin eruption chronic Steroid-induced diabetes mellitus chronic Superficial thrombophlebitis of left upper extremity chronic Urinary incontinence chronic Acute renal failure on dialysis resolved RINA (acute kidney injury) ac [place] UTI (urinary tract infection) acute [facility] Work Phone: Evaluation note* Diagnosis Onset Date Resolution Status Anemia of chronic renal failure, stage 4 (severe) acute 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 Hydronephrosis acute Hyperkalemia acute [id number] acute Hypophosphatemia acute Stage 3b chronic kidney disease (CKD) acute 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 Anemia of renal disease it sales representative harsh B12 deficiency chronic Chemotherapy-induced peripheral neuropathy chronic Encounter for chemotherapy management chronic Encounter for coordination of complex care chronic History of anemia due to vitamin B12 deficiency chronic History of hemodialysis it sales representative harsh Iron deficiency anemia chron ic 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 Rash and nonspecific skin eruption chronic Steroid-induced diabetes mellitus chronic Superficial thrombophlebitis of left upper extremity chronic Urinary incontinence chronic Acute renal failure on dialysis resolved RINA (acute kidney injury) ac [place] Chronic suprapubic catheter acute Complicated urinary tract infection acute 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 Hydronephrosis acute Stage 3b chronic kidney disease (CKD) acute UTI (urinary tract infection) acute [facility] Work Phone: Evaluation note* Diagnosis Onset Date Resolution Status Anemia of renal disease it sales representative harsh B12 deficiency chronic Chemotherapy-induced peripheral neuropathy chronic Encounter for chemotherapy management chronic Encounter for coordination of complex care chronic History of anemia due to vitamin B12 deficiency chronic History of hemodialysis it sales representative harsh Iron deficiency anemia chron ic 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 Rash and nonspecific skin eruption chronic Steroid-induced diabetes mellitus chronic Superficial thrombophlebitis of left upper extremity chronic Urinary incontinence chronic Acute renal failure on dialysis resolved RINA (acute kidney injury) ac [place] Chronic suprapubic catheter acute Complicated urinary tract infection acute 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 Stage 3b chronic kidney disease (CKD) acute Chronic suprapubic catheter acute Anemia of renal disease it sales representative harsh B12 deficiency chronic Encounter for coordination of complex care chronic History of hemodialysis it sales representative harsh 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-induced diabetes mellitus [facility] Work Phone: Evaluation note* Diagnosis Onset Date Resolution Status RINA (acute kidney injury) ac [place] Chronic suprapubic catheter acute Complicated urinary tract infection acute 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 Stage 3b chronic kidney disease (CKD) acute Anemia of chronic renal failure, stage 4 (severe) acute Chronic suprapubic catheter acute Anemia of renal disease it sales representative harsh B12 deficiency chronic Encounter for coordination of complex care chronic History of hemodialysis it sales representative harsh 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 Anemia of renal disease it sales representative harsh B12 deficiency chronic Chemotherapy-induced peripheral neuropathy chronic Encounter for chemotherapy management chronic Encounter for coordination of complex care chronic History of anemia due to vitamin B12 deficiency chronic History of hemodialysis it sales representative harsh Iron deficiency anemia chron ic 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 Rash and nonspecific skin eruption chronic Steroid-induced diabetes mellitus chronic Superficial thrombophlebitis of left upper extremity chronic Urinary incontinence chronic Acute renal failure on dialysis resolved [facility] Work Phone: Evaluation note* Diagnosis Onset Date Resolution Status RINA (acute kidney injury) ac [place] Chronic suprapubic catheter acute Complicated urinary tract infection acute 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 Stage 3b chronic kidney disease (CKD) acute Anemia of chronic renal failure, stage 4 (severe) acute Chronic suprapubic catheter acute Anemia of renal disease it sales representative harsh B12 deficiency chronic Encounter for coordination of complex care chronic History of hemodialysis it sales representative harsh 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 Anemia of renal disease it sales representative harsh B12 deficiency chronic Chemotherapy-induced peripheral neuropathy chronic Encounter for chemotherapy management chronic Encounter for coordination of complex care chronic History of anemia due to vitamin B12 deficiency chronic History of hemodialysis it sales representative harsh Iron deficiency anemia chron ic 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 Rash and nonspecific skin eruption chronic Steroid-induced diabetes mellitus chronic Superficial thrombophlebitis of left upper extremity chronic Urinary incontinence chronic Acute renal failure on dialysis resolved Anemia of chronic renal failure, stage 4 (severe) acute 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 Hyperkalemia acute [id number] acute Hypophosphatemia acute Stage 3b chronic kidney disease (CKD) acute 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 [facility] Work Phone: Evaluation note* Diagnosis Onset Date Resolution Status Anemia of chronic renal failure, stage 4 (severe) acute 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 Hyperkalemia acute [id number] acute Hypophosphatemia acute Stage 3b chronic kidney disease (CKD) acute 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 Anemia of renal disease it sales representative harsh B12 deficiency chronic Chemotherapy-induced peripheral neuropathy chronic Encounter for chemotherapy management chronic Encounter for coordination of complex care chronic History of anemia due to vitamin B12 deficiency chronic History of hemodialysis it sales representative harsh Iron deficiency anemia chron ic 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 Rash and nonspecific skin eruption chronic Steroid-induced diabetes mellitus chronic Superficial thrombophlebitis of left upper extremity chronic Urinary incontinence chronic Acute renal failure on dialysis resolved Anemia of chronic renal failure, stage 4 (severe) acute Chronic suprapubic catheter acute Anemia of renal disease it sales representative harsh B12 deficiency chronic Encounter for coordination of complex care chronic History of hemodialysis it sales representative harsh 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 [facility] Work Phone: Evaluation note* Diagnosis Onset Date Resolution Status Anemia of chronic renal failure, stage 4 (severe) acute 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 Hyperkalemia acute [id number] acute Hypophosphatemia acute Stage 3b chronic kidney disease (CKD) acute 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 Anemia of renal disease it sales representative harsh B12 deficiency chronic Chemotherapy-induced peripheral neuropathy chronic Encounter for chemotherapy management chronic Encounter for coordination of complex care chronic History of anemia due to vitamin B12 deficiency chronic History of hemodialysis it sales representative harsh Iron deficiency anemia chron ic 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 Rash and nonspecific skin eruption chronic Steroid-induced diabetes mellitus chronic Superficial thrombophlebitis of left upper extremity chronic Urinary incontinence chronic Acute renal failure on dialysis resolved Anemia of chronic renal failure, stage 4 (severe) acute Chronic suprapubic catheter acute Anemia of renal disease it sales representative harsh B12 deficiency chronic Encounter for coordination of complex care chronic History of hemodialysis it sales representative harsh 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 Acute kidney injury superimposed on CKD acute Hydronephrosis, left acute Hyperkalemia acute [facility] Work Phone: Evaluation note* Diagnosis Onset Date Resolution Status Anemia of chronic renal failure, stage 4 (severe) acute 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 Hyperkalemia acute [id number] acute Hypophosphatemia acute Stage 3b chronic kidney disease (CKD) acute 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 Anemia of renal disease it sales representative harsh B12 deficiency chronic Chemotherapy-induced peripheral neuropathy chronic Encounter for chemotherapy management chronic Encounter for coordination of complex care chronic History of anemia due to vitamin B12 deficiency chronic History of hemodialysis it sales representative harsh Iron deficiency anemia chron ic 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 Rash and nonspecific skin eruption chronic Steroid-induced diabetes mellitus chronic Superficial thrombophlebitis of left upper extremity chronic Urinary incontinence chronic Acute renal failure on dialysis resolved Anemia of chronic renal failure, stage 4 (severe) acute Chronic suprapubic catheter acute Anemia of renal disease it sales representative harsh B12 deficiency chronic Encounter for coordination of complex care chronic History of hemodialysis it sales representative harsh 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 Acute kidney injury superimposed on CKD acute RINA (acute kidney injury) ac [place] Hydronephrosis, left acute Hyperkalemia acute [facility] Work Phone: Evaluation note* Diagnosis Onset Date Resolution Status Anemia of chronic renal failure, stage 4 (severe) acute 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 Hyperkalemia acute [id number] acute Hypophosphatemia acute 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 Anemia of renal disease it sales representative harsh B12 deficiency chronic Chemotherapy-induced peripheral neuropathy chronic Encounter for chemotherapy management chronic Encounter for coordination of complex care chronic History of anemia due to vitamin B12 deficiency chronic History of hemodialysis it sales representative harsh Iron deficiency anemia chron ic 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 Rash and nonspecific skin eruption chronic Steroid-induced diabetes mellitus chronic Superficial thrombophlebitis of left upper extremity chronic Urinary incontinence chronic Acute renal failure on dialysis resolved Acute kidney injury superimposed on CKD acute Anemia of chronic renal failure, stage 4 (severe) acute Chronic suprapubic catheter acute Hyperkalemia acute Anemia of renal disease it sales representative harsh B12 deficiency chronic Encounter for coordination of complex care chronic History of hemodialysis it sales representative harsh 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 Acute kidney injury superimposed on CKD acute RINA (acute kidney injury) ac [place] Chronic suprapubic catheter acute CKD (chronic kidney disease) stage 4, GFR 15-29 ml/min acute Hydronephrosis, left acute Hyperkalemia acute [id number] acute Noncompliant bladder acute Type 2 diabetes mellitus wit h diabetic chronic kidney disease acute Anemia of renal disease it sales representative harsh [facility] Work Phone: Evaluation note* Diagnosis Onset Date Resolution Status B12 deficiency chronic Chemotherapy-induced peripheral neuropathy chronic Encounter for chemotherapy management chronic Encounter for coordination of complex care chronic History of anemia due to vitamin B12 deficiency chronic History of hemodialysis it sales representative harsh Iron deficiency anemia chron ic 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 Rash and nonspecific skin eruption chronic Steroid-induced diabetes mellitus chronic Superficial thrombophlebitis of left upper extremity chronic Urinary incontinence chronic Acute renal failure on dialysis resolved Anemia of chronic renal failure, stage 4 (severe) acute B12 deficiency chronic Encounter for coordination of complex care chronic History of hemodialysis it sales representative harsh 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 [facility] Work Phone: Evaluation note* Diagnosis Pre-op evaluation- Primary Preoperative examination, [...] site, unspecified whether rheumatoid factor present (HCC) Ureteral stricture- Primary Stricture or kinking of ureter Ureteral stricture Stricture or kinking of ureter documented [facility] Author Mayda Matthews [facility] June 02, 2024 6:36pm Note Date/Time June 02, 2024 6 :12pm [facility] [address] [place] [address] Hospitalist H&P Signed Patient: Patsy Cunningham MR#: [id number] : 1945 Acct:[id number] Age/Sex: 79 / M Adm Date: 4 Loc: Room: [address] [place] [address] Type: ADM IN Attending Dr: Mayda Matthews MD Copies to: MD Helen Ivy MD~ HPI DATE OF EXAMINATION: 06/02/24 CHIEF COMPLAINT: Abnormal labs HISTORY OF PRESENT ILLNESS: Patient is a 79-year-old male with medical history as listed below presented to the ER due to abnormal labs. Patient states that he underwent prostate biopsy as outpatient yesterday as well as ureteral stent exchange done by urology as outpatient Dr. Cortez yesterday. Patient tolerated the procedure well with no immediate complications. He does have suprapubic catheter at baseline. Denies any issues with drainage from catheter. Denies fever, chills, nausea, vomiting. He does report feeling tired and unwell. He feels dehydrated since he was fasting for the procedure. He does follow with nephrology Dr. Brink as outpatient regarding his CKD. Patient also follows with oncologist Dr. Huddleston regarding his multiple myeloma and currently undergoing treatment. He was todayfor follow-up visit at oncology and underwent blood work which showed worsening kidney function and hyperkalemia with potassium 6.1. EKG showed normal sinus rhythm with no acute changes. BUN 48 and creatinine 3.47 which has progressed from before. Afebrile here, no leukocytosis, hemoglobin appears stable. Patient does report some hematuria postprocedure which she thought was normal since he gets that after interventions. He does report there was blood clots coming out which has been cleared according to him. Hemodynamically stable at this time. Patient was given IV fluids in the ER as well as hyperkalemia cocktail with insulin/dextrose, Lokelma, calcium gluconate. Decision was made toadmit him for further evaluation and management. Review of Systems Review of Systems Review of systems: 10 systems are reviewed and are negative except as mentioned elsewhere in the documentation [facility] Medical History Suprapubic catheter BPH (benign prostatic hyperplasia) Sepsis Multiple myeloma Apnea Skin cancer Arthritis Kidney stones Diabetes mellitus, type 2 Hyperlipidemia Hypertension Surgical History S/P TURP Family History Sister Myocardial infarction Mother Myocardial infarction Father Skin cancer Brother Hypertension Legacy FamHx Relation: Brother(s) Diabetes Legacy FamHx Relation: Brother(s) Father Cancer Legacy FamHx Problem: Diagnosed with Cancer Family/Other Legacy FamHx Problem: 1 SISTER KIDNEY STONES, SEPSIS Mother History of stroke Legacy FamHx Problem: Diagnosed with Stroke Social History Smoking Status: Former smoker Tobacco Type: cigarettes Substance Use Type: None Meds Medications and Allergies Allergies gabapentin Allergy (Unknown, Verified 06/02/24 15:31) Rash lisinopril Allergy (Unknown, Verified 06/02/24 15:31) DRY COUGH mirabegron [From Myrbetriq] Adverse Reaction (Verified 06/02/24 15:31) Diarrhea Home Medications atorvastatin 20 mg tablet 20 mg PO QPM 10/15/20 [History Confirmed 06/02/24] aspirin 81 mg tablet,delayed release 81 mg PO DAILY 11/26/20 [History Confirmed 06/02/24] famotidine 20 mg tablet 20 mg PO QPM 09/03/22 [History Confirmed 06/02/24] cholecalciferol (vitamin D3) 50 mcg (2,000 unit) capsule 50 mcg PO DAILY 10/26/23 [History Confirmed 06/02/24] docusate sodium 100 mg capsule (Stool Softener) 100 mg PO QPM 10/26/23 [History Confirmed 06/02/24] insulin lispro 100 unit/mL subcutaneous pen (Humalog KwikPen (U-100) Insulin) 8 unit subcut TID.AC 10/26/23 [History Confirmed 06/02/24] iron bis glycinate lashon 28 mg iron-vit C 60 mg-FA 400 mcg-B12 8mcg cap (Gentle Iron) 1 cap PO QPM 10/26/23 [History Confirmed 06/02/24] multivitamin (Daily Multi-Vitamin tablet) 1 tab PO DAILY 10/26/23 [History Confirmed 06/02/24] nitrofurantoin macrocrystal 100 mg capsule 100 mg PO QHS PRN infection 10/26/23 [History Confirmed 06/02/24] insulin glargine 100 unit/mL (3 mL) subcutaneous pen (Lantus Solostar U-100 Insulin) 35 unit subcut QHS 03/08/24 [History Confirmed 06/02/24] losartan 25 mg tablet 25 mg PO DAILY #90 tabs 03/08/24 [Rx Confirmed 06/02/24] mecobalamin (vitamin B12) 1,000 mcg chewable tablet 1,000 mcg PO DAILY 03/08/24 [History Confirmed 06/02/24] Lactobacillus acidophilus 10 billion cell capsule (NewFlora) 10,000 mmu cells PODAILY 06/02/24 [History Confirmed 06/02/24] Lactobacillus acidophilus 10 billion cell capsule (Probiotic) 10,000 mmu cells PO DAILY 06/02/24 [History Confirmed 06/02/24] darbepoetin raymond in polysorbat 10 mcg/0.4 mL in polysorbate injection syringe (Aranesp) 10 mcg IV .every other week PRN Hemoglobin less than 10 06/02/24 [History Confirmed 06/02/24] insulin lispro 100 unit/mL subcutaneous pen 1 sliding scale dose subcut .with meals 06/02/24 [History Confirmed 06/02/24] oxybutynin chloride 10 mg tablet,extended release 24 hr 10 mg PO BID 06/02/24 [History Confirmed 06/02/24] Exam Physical Exam Vital Signs: Temp Pulse Resp BP Pulse Ox O2 Del Method 98 F 74 18 162/67 H 98 Room Air 06/02/24 15:31 06/02/24 15:31 06/02/24 15:31 06/02/24 15:31 06/02/24 15:31 06/02/24 15:31 Narrative: Const General: cooperative HEENT dry oropharyngeal mucosa without any ulcers or exudates Eyes: Conjunctiva normal Pulmonary Auscultation: clear to auscultation , no crackles, no wheezes Cardiovascular Rate: normal rate Rhythm: regular rhythm Heart Sounds: S1 normal, S2 normal and no murmurs GI Inspection: non-distended Palpation: soft, not firm and nontender. No rigidity or rebound. Suprapubic catheter in place, draining clear urine, no hematuria Neuro General: alert, awake and oriented x3. No obvious new focal deficit Musculoskeletal: normal range of motion Extrem General: no cyanosis, no pedal edema Psych Appearance: appropriate affect. Grossly normal Results - Hospitalist H&P Lab Results Labs: Laboratory Last Values PHA Creatinine Clear 19.50 06/02/24 15:58 Sodium 133 mmol/L (136-145) L 06/02/24 15:58 Potassium 6.1 mmol/L (3.5-5.1) H* 06/02/24 15:58 Chloride 107 mmol/L (98-107) 06/02/24 15:58 Carbon Dioxide 20.3 mmol/L (21.0-31.0) L 10/17/24 15:58 Anion Gap 11.8 mEq/L (6.0-15.0) 06/02/24 15:58 BUN 48 mg/dL (7-25) H 06/02/24 15:58 Creatinine 3.47 mg/dL (0.70-1.30) H 06/02/24 15:58 Est GFR (CKD-EPI) 17.203 mL/Min 06/02/24 15:58 Glucose 114 mg/dL (70-100) H 06/02/24 15:58 Calcium 9.3 mg/dL (8.6-10.3) 06/02/24 15:58 Assessment & Plan Assessment/Plan (1) Acute kidney injury superimposed on CKD: (2) Hyperkalemia: (3) Hydronephrosis, left: Plan RINA on CKD with electrolytes abnormalities BPH, underwent prostate biopsy 06/01/24, and stent exchange per history Hyponatremia/hyperkalemia Left-sided hydronephrosis and hydroureter Left nephrolithiasis -Afebrile here, no leukocytosis -Check UA. Has completed course of AB recently for UTI. -Will provide gentle IV hydration as directed -Avoid ACEI, ARB for now -Ordered CT AP wo contrast in ER. showed right sided double-J ureteral stent. Left-sided hydronephrosis and hydroureter without definitive obstructing stone or mass, UVJ stricture cannot be excluded -Optimized electrolytes to keep K>4, Mg>2, P>3 -Avoid nephrotoxic medications -Nephrology consult for input -Urology consult for input DM -Continue insulin therapy, sliding scale Home medications reviewed and resumed as appropriate Diet: carb consistent DVT ppx: heparin Code status: Full Status: inpatient Discussed with patient and at bedside. All questions answered. In agreementwith the above plan Mayda Wilkes MD Internal Medicine Hospitalist Attending Physician IP vs OBS Justification Based on differential dx, clinical care plan, and risk of adverse events, if untreated, in my clinical judgement this patient requires an acute care setting as: INPATIENT because of an expectation of an over 2 midnight stay. 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 at [address] [address] Hem/Onc Follow Up Note - OP Signed Patient: Patsy Cunningham MR#: [id number] : 1945 Acct:[id number] Age/Sex: 77 / M Type: REG RCR [...] TURP with Dr. Cortez of urology at [facility] with some improvement of his urinary [...] interval 1 month follow up; not much change management administrator the past 1 month - of note, [...] if symptoms improve. One month followup with [facility] to review labs and symptoms. He also has followup with Dr. Hall in one week and will inform him of plan for one month off Revlimid. He also may seek Urology second opinion. 05/23/2022: Noted to have Urolift procedure at [facility] last month, noted increased post-op pain that [...] of kidney stone by Dr. Seals at [facility] on 01/14/2022 without complications. Sent off Revlimid [...] protein electrophoresis or serum or urine immunofixation. [place]/lambda light chain ratio continues to decline to [...] He underwent a painful bone marrow by [facility] with Dr. Hall with nondiagnostic specimen. Dr. [...] 20 he was treated for UTI at [facility] ER, thenadmitted August 24 to [facility] with dehydration and urosepsis with discharge August 29. 09/05/[address] Heath for continued antibiotics with Bactrim DS. Urine also returned positive for candidiasis and he was treated with fluconazole daily. He stopped his hydralazine and Lasix. --09/17/2021: He returned for labs and skeletal survey at [facility] and his potassium on blood work was markedly elevated. We contacted him and advised ER evaluation at [facility]. His potassium returned at 7.3 and he [...] due for follow-up with Dr. Hall at [facility] hematology in late October for 1 year [...] bone marrow biopsy at [facility] on 10/18/2020. No evidence of MRD--0.5% plasma cells andno clonal plasma cells suggestive of residual myeloma. Tolerating maintenance Revlimid 5mg daily well. No bone pain and normal renal function--Dr. Vincent hasreleased for annual nephrology followup. He is fully vaccinated for [id number] and I contacted Dr. Hall for coordination [...] marrow biopsy--I briefly discussed Revlimidmaintenance with Mr. Cunningham and his . I will contact patient after bone marrow results to confirm plan with Dr. Hall and f/u with him in about 6 weeks with myeloma labs. 07/02/2020: Patsy has completed all of his pretransplant evaluation at [facility] including cardiology visit 06 25 which showed ejection fraction 60%. I have contacted Dr. Hall who noted that today will be his last day of Velcade and we will hold his daratumumab. He was to have a COVID-19 teston 07/11/2020 for planned stem cell collection 07/17 and transplant on 07/23. I clarified with the staff at [facility] this this may be performed at [facility] and forwarded to them. His neuropathy in [...] He was evaluated by Dr. Small at [facility] on 04/26/2020. Angel and his note [...] has remarkably improved (>90% reduction past month). [place] light chains decreased from 12,000 to 42. [...] marijuana and would discuss this with his rd manager whetherthis would interfere with dialysis. We will also follow closely for cytopenias and reviewed infectious precautions. He has a son from [place] who plans to visit on Thursday and [...] but he may address this with our [facility] nutrition team. He will also receivechemotherapy class with our nurses in the infusion center. PRELIMINARY HISTORY (from initial consult 03/08/2020): This is a now 77-year-old male who was transferred from [facility] emergency room by [facility] due to critical [...] to be coordinated with nursing staffdue to [facility]-19 visitor restriction policy. - Summary of Therapies [...] day 0 autologous stem cell transplant 07/25/2020at [facility]. 11/26/2020: Follow-up bone marrow aspiration and biopsy 10/18/2020 for MRD evaluation shows hypocellular marrow with 0.5% plasma cells, no clonal population by flow cytometry but 0.03% kappa light chain skewing. Started Revlimid 5 mg daily for maintenance therapy early October 2020. Nondiagnostic bone marrow for MRD in spring 2021 at . Planned follow-up bone marrow biopsy for MRD at [facility] fall 2021. -- 02/05/2022: Revlimid on hold [...] TURP with Dr. Cortez of urology at [facility] 08/27/2022. ROS Details: All systems reviewed & [...] followed by Dr. Seals--recent ESWL 01/14/2022 at [facility]. ENDOCRINE: Negative for cold intolerance and heat [...] Negative for environmental allergies and food allergies. [facility] - History Attestation statement: The following information [...] October 2021, repeat MRD bone marrow at [facility] April 2022, MRD aspirate sent 05/23/2022--Clonoseq returned [...] ASCT Day 0 07/25/2020. 11/26/2020: Followup of [facility] end of therapy bone marrow biopsy 10/18/2020--no [...] Homocystine was normal methylmalonic acid is pending. [facility] also send an erythropoietin level to see if there may be a benefit to adding erythropoietin for anemia of chronic kidney disease. He will continue to follow with Dr. Meade. He still has no M spike on serum protein electrophoresis and normal kappa/lambda light chain ratio. MRD testing at [facility] was nondiagnostic and he will have [...] be scheduled for MRD bone marrow at [facility] interventional radiology in April 2022, then follow-up with me with review of myeloma labs 3 months after this procedure. He still has undetectablemonoclonal spike and normal kappa/lambda light chain ratio on most recent labs. Renal function is improving since ESWL at [facility] in late December. 05/23/2022: No new issues, [...] symptoms improved at one month followup with [facility], he will followup with me in one month with CBC, CMP, SPEP for monoclonal spike and kappa/lambda light chain ratio. 07/28/2022: Patsy is here for interval 1 month follow up; not much change management administrator the past 1 month - of note, [...] symptoms have improved since TURP with Dr. oCrtez 06/27/2023. No evidence of infection on urinalysis. [...] for MRD. Repeat MRD bone marrow at [facility] in 3 months because spring 2021 bone [...] interval 1 month follow up; not much change management administrator the past 1 month - of note, [...] for coordination of care (as documented) and [id number] counseling of patient and/or family. Dictated By: Brook Huddleston MD DD/ [id number] Signed By: <Electronically signed by MD Brook Huddleston> 09/03/22 0925 [facility] Work Phone: Progress note Author Delmar Wilburn [facility] January 22, 2024 6:09pm Note Date/Time January 22, 2024 6:10p m [facility] [address] [place] [address] Urology Progress Note Signed Patient: Patsy Cunningham MR#: [id number] : 1945 Acct:[id number] Age/Sex: 78 / M Adm Date: 4 Loc: Room: [address] [place] [address] Type: ADM IN Attending Dr: Clarence Miller DO Copies to: ~ Date of Service: 01/22/2024 Subjective Subjective HPI: admit with complicated UTI and mild b/l pelviectasis/rina on ckd I reviewed his images----RENAL US ABOVE HAD CT A/P 09/2022 SHOWING MILD/MOD B/L HYDRO TO LEVEL OF THICKENED BLADDER AND 7MM LEFT K.STONE. UCX GROWING KLEBSIELLA PANSENSITIVE AND ON ROCEPHIN CREAT BASELINE AROUND 2 AND SLOWLY TRENDING DOWN THIS ADMIT pt seen and improving Exam Physical Exam Vital Signs: Temp Pulse Resp BP Pulse Ox O2 Del Method 98.1 F 73 16 155/55 H 96 Room Air 01/22/24 12:00 01/22/24 12:00 01/22/24 12:00 01/22/24 12:00 01/22/24 12:00 01/22/24 12:00 Objective Pain Assessment Generalized: Pain Description: Dull Pain Intensity: 2 Intake & Output 24 hour I&O: Intake & Output 01/22/24 01/22/24 01/22/24 07:59 15:59 23:59 Intake Total 1450 / 1450 Balance 1450 / 1450 Weight 92.6 kg Labs 01/22/24 07:42 01/22/24 07:42 Laboratory Results - Last 48 hrs. 01/22/24 16:08: POC Glucose 142 01/22/24 11:36: POC Glucose 204 01/22/24 07:42: Corrected WBC 8.1, Uncorrected WBC Count 8.1, RBC 2.45 L, Hgb 8.9 L, Hct 26.0 L, MCV 106.2 H, MCH 36.5 H, MCHC 34.3, RDW 16.1 H, Plt Count 199, MPV 7.8, Neut % (Auto) 72.2, Lymph % (Auto) 17.0, [place] % (Auto) 7.2, Eos % (Auto) 3.3, Baso % (Auto) 0.3, Nucleat RBC Rel Count 0.1, Neut # (Auto) 5.8, Lymph # (Auto) 1.4, [place] # (Auto) 0.6, Eos # (Auto) 0.3, Baso # (Auto) 0.0, PHA Creatinine Clear 26.98, Sodium 141, Potassium 4.1, Chloride 110 H, Carbon Dioxide 23.3, Anion Gap 11.8, BUN 31 H, Creatinine 2.58 H, Est GFR (CKD-EPI) 24.703, Glucose 51 L, Calcium 8.9, Iron 59, TIBC 164 L, Iron Saturation 36.0, Transferrin 117 L, Ferritin 488.7 H, Vitamin B12 426, Folate 15.7 01/22/24 06:28: POC Glucose 60 L* 01/21/24 20:27: POC Glucose 130 01/21/24 16:03: POC Glucose 163 01/21/24 11:25: POC Glucose 189 01/21/24 06:16: POC Glucose 147 01/21/24 05:40: Corrected WBC 8.0, Uncorrected WBC Count 8.0, RBC 2.39 L, Hgb 8.6 L, Hct 25.5 L, MCV 106.7 H, MCH 36.1 H, MCHC 33.9, RDW 16.4 H, Plt Count 190, MPV 8.2, Neut % (Auto) 80.2, Lymph % (Auto) 10.3, [place] % (Auto) 6.6, Eos % (Auto) 2.7, Baso % (Auto) 0.2, Nucleat RBC Rel Count 0.1, Neut # (Auto) 6.4, Lymph # (Auto) 0.8 L, [place] # (Auto) 0.5, Eos # (Auto) 0.2, Baso # (Auto) 0.0, PHA Creatinine Clear 24.61, Sodium 139, Potassium 4.3, Chloride 108 H, Carbon Dioxide 22.7, Anion Gap 12.6, BUN 40 H, Creatinine 2.83 H, Est GFR (CKD-EPI) 22.108, Glucose 141 H, Calcium 8.5 L 01/20/24 22:45: Ur Random Creatinine 38.00, Ur Random Sodium 84 01/20/24 20:40: POC Glucose 163 Microbiology Microbiology 01/19/24 15:36 Blood - Left Forearm Blood Culture - Preliminary No Growth 3 Days 01/19/24 14:53 Blood - Left Antecubital Blood Culture - Preliminary No Growth 3 Days Assessment/Plan Assessment/Plan (1) Complicated urinary tract infection: Plan: admit with complicated UTI and mild b/l pelviectasis/rina on ckd I reviewed his images----RENAL US ABOVE HAD CT A/P 09/2022 SHOWING MILD/MOD B/L HYDRO TO LEVEL OF THICKENED BLADDER AND 7MM LEFT K.STONE. UCX GROWING KLEBSIELLA PANSENSITIVE AND ON ROCEPHIN CREAT BASELINE AROUND 2 AND SLOWLY TRENDING DOWN THIS ADMIT pt seen and doing better he will make appt w/ dr cortez who he follows with generally for spt management. Code(s): N39.0 - Urinary tract infection, site not specified (2) RINA (acute kidney injury): Code(s): N17.9 - Acute kidney failure, unspecified (3) Stage 3b chronic kidney disease (CKD): Code(s): N18.32 - Chronic kidney disease, stage 3b (4) Hydronephrosis: Qualifiers: Hydronephrosis type: unspecified Qualified Code(s): N13.30 - Unspecified hydronephrosis Code(s): N13.30 - Unspecified hydronephrosis Plan as above Documented By: Delmar Wilburn MD 01/22/241807 Signed By: <Electronically signed by Delmar Wilburn MD> 01/22/241808 [facility] Work Phone: Reason for referral (narrative)No reason for referral information availableProtestant [facility] Work Phone: Summary Purpose Family History No Family History Records Found Relationship Condition Age at Onset Recorded Date/T daphne sister Myocardial infarction Unknown Not Specified Myocardial infarction Unknown father Malignant neoplasm of skin Unknown Relationship Condition Age at Onset Recorded Date/T daphne sister Myocardial infarction Unknown Not Specified Myocardial infarction Unknown father Malignant neoplasm of skin Unknown brother Hypertension Unknown Diabetes mellitus Unknown father Unknown Malignant neoplasm Unknown family member Unknown Not Specified Unknown History of stroke Unknown Relationship Condition Age at Onset Recorded Date/T daphne sister Myocardial infarction Unknown mother Myocardial infarction Unknown father Malignant neoplasm of skin Unknown brother Hypertension Unknown Diabetes mellitus Unknown father Unknown Malignant neoplasm Unknown family member Unknown mother Unknown History of stroke Unknown Advance Directives No Advanced Directives Records Found Advance Directive Response Recorded Date/ Time Advance [...] renal failure on dialysis Chief Complaint Kidney stones, hydro nephrosis Multiple Myloma Reason for Visit Anemia [...] Urinary incontinence Acute renal failure on dialysis Chronic suprapubic catheter Anemia of renal disease B12 deficiency Encounter for coordination of complex care History of hemodialysis 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 Chief Complaint spec drop RENAL 4 MONTH F/U Multiple Myloma e11.9 i10 e78.9 e55.9 z13.296 Reason for Visit Chronic suprapubic c atheter Anemia of renal disease B12 deficiency Encounter for coordination of complex care History of hemodialysis 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 Anemia of chronic renal failure, stage 4 (severe) Diabetes 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 Hydronephrosis Hyperkalemia [id number] Hypophosphatemia Stage 3b chronic kidney disease (CKD) 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 Anemia of renal disease B12 deficiency Chemotherapy-induced peripheral neuropathy Encounter for chemotherapy management Encounter for coordination of complex care History of anemia due to vitamin B12 deficiency History of hemodialysis 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 Rash and nonspecific skin eruption Steroid-induced diabetes mellitus Superficial thrombophlebitis of left upper extremity Urinary incontinence Acute renal failure on dialysis Chief Complaint spec drop RENAL 4 MONTH F/U e11.9 i10 e78.9 e55.9 z13.296 Multiple Myloma cath issues Reason for Visit Anemia of chronic re nal failure, stage 4 (severe) Diabetes 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 Hydronephrosis Hyperkalemia [id number] Hypophosphatemia Stage 3b chronic kidney disease (CKD) 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 Anemia of renal disease B12 deficiency Chemotherapy-induced peripheral neuropathy Encounter for chemotherapy management Encounter for coordination of complex care History of anemia due to vitamin B12 deficiency History of hemodialysis 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 Rash and nonspecific skin eruption Steroid-induced diabetes mellitus Superficial thrombophlebitis of left upper extremity Urinary incontinence Acute renal failure on dialysis RINA (acute kidney injury) UTI (urinary tract infection) Chief Complaint spec drop RENAL 4 MONTH F/U e11.9 i10 e78.9 e55.9 z13.296 Multiple Myloma cath issues cath issues Reason for Visit Anemia of chronic re nal failure, stage 4 (severe) Diabetes 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 Hydronephrosis Hyperkalemia [id number] Hypophosphatemia Stage 3b chronic kidney disease (CKD) 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 Anemia of renal disease B12 deficiency Chemotherapy-induced peripheral neuropathy Encounter for chemotherapy management Encounter for coordination of complex care History of anemia due to vitamin B12 deficiency History of hemodialysis 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 Rash and nonspecific skin eruption Steroid-induced diabetes mellitus Superficial thrombophlebitis of left upper extremity Urinary incontinence Acute renal failure on dialysis RINA (acute kidney injury) Chronic suprapubic catheter Complicated urinary tract infection Diabetes 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 Hydronephrosis Stage 3b chronic kidney disease (CKD) UTI (urinary tract infection) Chief Complaint Multiple Myloma cath issues cath issues Reason for Visit Anemia of renal dise [...] Urinary incontinence Acute renal failure on dialysis RINA (acute kidney injury) Chronic suprapubic catheter Complicated urinary tract infection Diabetes 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 Stage 3b chronic kidney disease (CKD) Chronic suprapubic catheter Anemia of renal disease B12 deficiency Encounter for coordination of complex care History of hemodialysis 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 Chief Complaint cath issues cath issues Multiple Myloma c61 Reason for Visit RINA (acute kidney in jury) Chronic suprapubic catheter Complicated urinary tract infection Diabetes 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 Stage 3b chronic kidney disease (CKD) Anemia of chronic renal failure, stage 4 (severe) Chronic suprapubic catheter Anemia of renal disease B12 deficiency Encounter for coordination of complex care History of hemodialysis 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 Anemia of renal disease B12 deficiency Chemotherapy-induced peripheral neuropathy Encounter for chemotherapy management Encounter for coordination of complex care History of anemia due to vitamin B12 deficiency History of hemodialysis 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 Rash and nonspecific skin eruption Steroid-induced diabetes mellitus Superficial thrombophlebitis of left upper extremity Urinary incontinence Acute renal failure on dialysis Chief Complaint cath issues cath issues c61 e11.9 i12.9 e83.39 n13.30 n18.32 n18.4 d63.1 c61 Multiple Myloma Reason for Visit RINA (acute kidney in jury) Chronic suprapubic catheter Complicated urinary tract infection Diabetes 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 Stage 3b chronic kidney disease (CKD) Anemia of chronic renal failure, stage 4 (severe) Chronic suprapubic catheter Anemia of renal disease B12 deficiency Encounter for coordination of complex care History of hemodialysis 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 Anemia of renal disease B12 deficiency Chemotherapy-induced peripheral neuropathy Encounter for chemotherapy management Encounter for coordination of complex care History of anemia due to vitamin B12 deficiency History of hemodialysis 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 Rash and nonspecific skin eruption Steroid-induced diabetes mellitus Superficial thrombophlebitis of left upper extremity Urinary incontinence Acute renal failure on dialysis Chief Complaint cath issues cath issues c61 e11.9 i12.9 e83.39 n13.30 n18.32 n18.4 d63.1 c61 Multiple Myloma RENAL 4 MONTH F/U Reason for Visit RINA (acute kidney in jury) Chronic suprapubic catheter Complicated urinary tract infection Diabetes 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 Stage 3b chronic kidney disease (CKD) Anemia of chronic renal failure, stage 4 (severe) Chronic suprapubic catheter Anemia of renal disease B12 deficiency Encounter for coordination of complex care History of hemodialysis 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 Anemia of renal disease B12 deficiency Chemotherapy-induced peripheral neuropathy Encounter for chemotherapy management Encounter for coordination of complex care History of anemia due to vitamin B12 deficiency History of hemodialysis 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 Rash and nonspecific skin eruption Steroid-induced diabetes mellitus Superficial thrombophlebitis of left upper extremity Urinary incontinence Acute renal failure on dialysis Anemia of chronic renal failure, stage 4 (severe) Diabetes 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 Hyperkalemia [id number] Hypophosphatemia Stage 3b chronic kidney disease (CKD) 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 Chief Complaint RENAL 4 MONTH F/U Unknown Multiple Myloma Follow Up Reason for Visit Anemia of chronic re nal failure, stage 4 (severe) Diabetes 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 Hyperkalemia [id number] Hypophosphatemia Stage 3b chronic kidney disease (CKD) 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 Anemia of renal disease B12 deficiency Chemotherapy-induced peripheral neuropathy Encounter for chemotherapy management Encounter for coordination of complex care History of anemia due to vitamin B12 deficiency History of hemodialysis 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 Rash and nonspecific skin eruption Steroid-induced diabetes mellitus Superficial thrombophlebitis of left upper extremity Urinary incontinence Acute renal failure on dialysis Anemia of chronic renal failure, stage 4 (severe) Chronic suprapubic catheter Anemia of renal disease B12 deficiency Encounter for coordination of complex care History of hemodialysis 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 Chief Complaint RENAL 4 MONTH F/U Unknown Multiple Myloma Follow Up sent by doc, potassium Reason for Visit Anemia of chronic re nal failure, stage 4 (severe) Diabetes 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 Hyperkalemia [id number] Hypophosphatemia Stage 3b chronic kidney disease (CKD) 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 Anemia of renal disease B12 deficiency Chemotherapy-induced peripheral neuropathy Encounter for chemotherapy management Encounter for coordination of complex care History of anemia due to vitamin B12 deficiency History of hemodialysis 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 Rash and nonspecific skin eruption Steroid-induced diabetes mellitus Superficial thrombophlebitis of left upper extremity Urinary incontinence Acute renal failure on dialysis Anemia of chronic renal failure, stage 4 (severe) Chronic suprapubic catheter Anemia of renal disease B12 deficiency Encounter for coordination of complex care History of hemodialysis 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 Acute kidney injury superimposed on CKD Hydronephrosis, left Hyperkalemia Chief Complaint RENAL 4 MONTH F/U Unknown Multiple Myloma Follow Up sent by doc, potassium Reason for Visit Anemia of chronic re nal failure, stage 4 (severe) Diabetes 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 Hyperkalemia [id number] Hypophosphatemia Stage 3b chronic kidney disease (CKD) 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 Anemia of renal disease B12 deficiency Chemotherapy-induced peripheral neuropathy Encounter for chemotherapy management Encounter for coordination of complex care History of anemia due to vitamin B12 deficiency History of hemodialysis 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 Rash and nonspecific skin eruption Steroid-induced diabetes mellitus Superficial thrombophlebitis of left upper extremity Urinary incontinence Acute renal failure on dialysis Anemia of chronic renal failure, stage 4 (severe) Chronic suprapubic catheter Anemia of renal disease B12 deficiency Encounter for coordination of complex care History of hemodialysis 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 Acute kidney injury superimposed on CKD RINA (acute kidney injury) Hydronephrosis, left Hyperkalemia Chief Complaint RENAL 4 MONTH F/U Unknown Multiple Myloma Follow Up sent by doc, potassium sent by aury, potassium Reason for Visit Anemia of chronic re nal failure, stage 4 (severe) Diabetes 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 Hyperkalemia [id number] Hypophosphatemia 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 Anemia of renal disease B12 deficiency Chemotherapy-induced peripheral neuropathy Encounter for chemotherapy management Encounter for coordination of complex care History of anemia due to vitamin B12 deficiency History of hemodialysis 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 Rash and nonspecific skin eruption Steroid-induced diabetes mellitus Superficial thrombophlebitis of left upper extremity Urinary incontinence Acute renal failure on dialysis Acute kidney injury superimposed on CKD Anemia of chronic renal failure, stage 4 (severe) Chronic suprapubic catheter Hyperkalemia Anemia of renal disease B12 deficiency Encounter for coordination of complex care History of hemodialysis 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 Acute kidney injury superimposed on CKD RINA (acute kidney injury) Chronic suprapubic catheter CKD (chronic kidney disease) stage 4, GFR 15-29 ml/min Hydronephrosis, left Hyperkalemia [id number] 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 Anemia of renal disease Chief Complaint Unknown Multiple Myloma Follow Up sent by doc, potassium sent by doc, potassium Chronic Kidney Disease Stage IV Reason for Visit B12 deficiency Chemotherapy-induced peripheral neuropathy Encounter for chemotherapy management Encounter for coordination of complex care History of anemia due to vitamin B12 deficiency History of hemodialysis 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 Rash and nonspecific skin eruption Steroid-induced diabetes mellitus Superficial thrombophlebitis of left upper extremity Urinary incontinence Acute renal failure on dialysis Anemia of chronic renal failure, stage 4 (severe) B12 deficiency Encounter for coordination of complex care History of hemodialysis 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 Chief Complaint Admit Date Unknown June 01, 2024 3 :22pm Follow Up June 02, 2024 2 :06pm sent by erna jeffers June 02 5:52pm sent by erna jeffers June 03 9:34am Chronic Kidney Disease Stage IV June 08, 2024 10:33am e11.9 i12.9 e83.39 n18.32 n18.4 d63.1 No vember 2023 11:01am Multiple Myloma June 23, 2024 1 1:03am Reason for Visit Admit Date Anemia of chronic renal failure, stage 4 (severe) June 02, 2024 2:06pm B12 deficiency June 02, 2024 2 :06pm Encounter for coordination of complex ca re June 02, 2024 2:06pm History of hemodialysis June 02 2:06pm 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 June 02, 2024 2:06pm Steroid-induced diabetes mellitus Octobe r 2023 2:06pm Acute kidney injury superimposed on CKD June 02, 2024 2:06pm Anemia of renal disease June 02 2:06pm Chronic suprapubic catheter May 2:06pm Hyperkalemia June 02, 2024 2 :06pm Acute kidney injury superimposed on CKD June 02, 2024 5:52pm RINA (acute kidney injury) June 02, 2024 5:52pm Anemia of renal disease June 02 5:52pm Chronic suprapubic catheter May 5:52pm CKD (chronic kidney disease) stage 4, GF R 15-29 ml/min June 02, 2024 5:52pm Hydronephrosis, left June 02, 2024 5:52pm Hyperkalemia June 02, 2024 5 :52pm Hypertensive chronic kidney disease with stage 1 through stage 4 chronic ki June 02, 2024 5:52pm Noncompliant bladder June 02, 2024 5:52pm Type 2 diabetes mellitus wit h diabetic chronic kidney disease June 02, 2024 5:52pm B12 deficiency June 23, 2024 1 1:03am Chemotherapy-induced peripheral neuropat hy June 23, 2024 11:03am Encounter for chemotherapy management No vember 2023 11:03am Encounter for coordination of complex ca re June 23, 2024 11:03am History of anemia due to vitamin B12 def iciency June 23, 2024 11:03am History of hemodialysis June 23 11:03am Iron deficiency anemia June 23 11:03am 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 June 23, 2024 11:03am Rash and nonspecific skin eruption Novem 2023 11:03am Steroid-induced diabetes mellitus Novemb er 2023 11:03am Superficial thrombophlebitis of left upp er extremity June 23, 2024 11:03am Urinary incontinence June 23, 2024 11:03am Acute renal failure on dialysis June 23, 2024 11:03am Anemia of renal disease June 23 11:03am Chief Complaint Admit Date Unknown June 01, 2024 3 :22pm Follow Up June 02, 2024 2 :06pm sent by erna jeffers June 02 5:52pm sent by erna jeffers June 03 9:34am Chronic Kidney Disease Stage IV June 08, 2024 10:33am e11.9 i12.9 e83.39 n18.32 n18.4 d63.1 No [email or web address] 11:01am Multiple Myloma June 23, 2024 1 1:03am renal 4 month f/u June 29, 2024 2:19pm Reason for Visit Admit Date Anemia of chronic renal failure, stage 4 (severe) June 02, 2024 2:06pm B12 deficiency June 02, 2024 2 :06pm Encounter for coordination of complex ca re June 02, 2024 2:06pm History of hemodialysis June 02 2:06pm 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 June 02, 2024 2:06pm Steroid-induced diabetes mellitus Octobe r 2023 2:06pm Acute kidney injury superimposed on CKD June 02, 2024 2:06pm Anemia of renal disease June 02 2:06pm Chronic suprapubic catheter May 2:06pm Hyperkalemia June 02, 2024 2 :06pm Acute kidney injury superimposed on CKD June 02, 2024 5:52pm RINA (acute kidney injury) June 02, 2024 5:52pm Anemia of renal disease June 02 5:52pm Chronic suprapubic catheter May 5:52pm CKD (chronic kidney disease) stage 4, GF R 15-29 ml/min June 02, 2024 5:52pm Hydronephrosis, left June 02, 2024 5:52pm Hyperkalemia June 02, 2024 5 :52pm Hypertensive chronic kidney disease with stage 1 through stage 4 chronic ki June 02, 2024 5:52pm Noncompliant bladder June 02, 2024 5:52pm Type 2 diabetes mellitus wit h diabetic chronic kidney disease June 02, 2024 5:52pm B12 deficiency June 23, 2024 1 1:03am Chemotherapy-induced peripheral neuropat hy June 23, 2024 11:03am Encounter for chemotherapy management No vember 2023 11:03am Encounter for coordination of complex ca re June 23, 2024 11:03am History of anemia due to vitamin B12 def iciency June 23, 2024 11:03am History of hemodialysis June 23 11:03am Iron deficiency anemia June 23 11:03am 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 June 23, 2024 11:03am Rash and nonspecific skin eruption Novem 2023 11:03am Steroid-induced diabetes mellitus Novemb er 2023 11:03am Superficial thrombophlebitis of left upp er extremity June 23, 2024 11:03am Urinary incontinence June 23, 2024 11:03am Acute renal failure on dialysis June 23, 2024 11:03am Anemia of renal disease June 23 11:03am Anemia of chronic renal failure, stage 4 (severe) June 29, 2024 2:19pm Diabetes 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 Nov ember 2023 2:19pm Hypophosphatemia June 29, 2024 2:19pm History of anemia due to vitamin B12 def iciency June 29, 2024 2:19pm 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 June 29, 2024 2:19pm Hyperkalemia June 29, 2024 2:19pm Hypertensive chronic kidney disease with stage 1 through stage 4 chronic ki June 29, 2024 2:19pm Hydronephrosis June 29, 2024 2:19pm Stage 3b chronic kidney disease (CKD) No vember 2023 2:19pm Chief Complaint Admit Date F/U Renal August 03, 2024 3:32pm e11.9 e83.39 n18.4 d63.1 n28.89 c90.00 F ebruary 2024 12:11pm Multiple Myloma September 27, 2024 12:16pm Reason for Visit Admit Date Anemia of chronic renal failure, stage 4 (severe) August 03, 2024 3:32pm Diabetes 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 Dec ember 2023 3:32pm Hypophosphatemia August 03, 2024 3:32pm History of anemia due to vitamin B12 def iciency August 03, 2024 3:32pm 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 August 03, 2024 3:32pm Hyperkalemia August 03, 2024 3:32pm Stage 3b chronic [place] disease (CKD[place] [facility] [place] 3:32[place] B12 deficiency September 27, 2024 12:16pm Chemotherapy-induced peripheral neuropat hy September 27, 2024 12:16pm Encounter for chemotherapy management [facility] 2024 12:16pm Encounter for coordination of complex ca re September 27, 2024 12:16pm History of anemia due to vitamin B12 def iciency September 27, 2024 12:16pm History of hemodialysis September 27 025 12:16pm Iron deficiency anemia September 27 12:16pm 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 September 27, 2024 12:16pm Rash and nonspecific skin eruption Febru vaughn 2024 12:16pm Steroid-induced diabetes mellitus Februa ry 2024 12:16pm Superficial thrombophlebitis of left upp er extremity September 27, 2024 12:16pm Urinary incontinence September 27, 2024 12:16pm Acute renal failure on dialysis September 27, 2024 12:16pm Anemia of renal disease September 27 2 025 12:16pm Chief Complaint Admit Date F/U Renal August 03, 2024 3:32pm e11.9 e83.39 n18.4 d63.1 n28.89 c90.00 F ebruary 2024 12:11pm Multiple Myloma September 27, 2024 12:16pm renal 3 month f/u October 04, 2024 3:21pm Reason for Visit Admit Date Anemia of chronic renal failure, stage 4 (severe) August 03, 2024 3:32pm Diabetes 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 Dec ember 2023 3:32pm Hypophosphatemia August 03, 2024 3:32pm History of anemia due to vitamin B12 def iciency August 03, 2024 3:32pm 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 August 03, 2024 3:32pm Hyperkalemia August 03, 2024 3:32pm Stage 3b chronic kidney disease (CKD) De cember 2023 3:32pm B12 deficiency September 27, 2024 12:16pm Chemotherapy-induced peripheral neuropat hy September 27, 2024 12:16pm Encounter for chemotherapy management Fe bruary 2024 12:16pm Encounter for coordination of complex ca re September 27, 2024 12:16pm History of anemia due to vitamin B12 def iciency September 27, 2024 12:16pm History of hemodialysis September 27, 025 12:16pm Iron deficiency anemia September 27 12:16pm 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 September 27, 2024 12:16pm Rash and nonspecific skin eruption Febru vaughn 2024 12:16pm Steroid-induced diabetes mellitus Februa ry 2024 12:16pm Superficial thrombophlebitis of left upp er extremity September 27, 2024 12:16pm Urinary incontinence September 27, 2024 12:16pm Acute renal failure on dialysis September 27, 2024 12:16pm Anemia of renal disease September 27, 2 025 12:16pm Anemia of chronic renal failure, stage 4 (severe) October 04, 2024 3:21pm Diabetes 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 Feb ruary 2024 3:21pm Hypophosphatemia October 04, 2024 3:21pm History of anemia due to vitamin B12 def iciency October 04, 2024 3:21pm 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 October 04, 2024 3:21pm Hyperkalemia October 04, 2024 3:21pm Stage 3b chronic kidney disease (CKD) [facility] 2024 3:21pm Chief Complaint Admit Date F/U Renal August 03, 2024 3:32pm e11.9 e83.39 n18.4 d63.1 n28.89 c90.00 [facility] 12:11pm renal 3 month f/u October 04, 2024 3:21pm Follow Up October 06, 2024 12:57pm Multiple Myloma October 06, 2024 1:24pm Reason for Visit Admit Date Anemia of chronic renal failure, stage 4 (severe) August 03, 2024 3:32pm Diabetes 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 Dec ember 2023 3:32pm Hypophosphatemia August 03, 2024 3:32pm History of anemia due to vitamin B12 def iciency August 03, 2024 3:32pm 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 August 03, 2024 3:32pm Hyperkalemia August 03, 2024 3:32pm Stage 3b chronic kidney disease (CKD) [place] [facility] [place] 3:32pm Anemia of chronic renal failure, stage 4 (severe) October 04, 2024 3:21pm Diabetes 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 [facility] 2024 3:21pm Hypophosphatemia October 04, 2024 3:21pm History of anemia due to vitamin B12 def iciency October 04, 2024 3:21pm 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 October 04, 2024 3:21pm Hyperkalemia October 04, 2024 3:21pm Stage 3b chronic kidney disease (CKD) [facility] 2024 3:21pm Anemia of chronic renal failure, stage 4 (severe) October 06, 2024 12:57pm B12 deficiency October 06, 2024 12:57pm Encounter for coordination of complex ca re October 06, 2024 12:57pm History of hemodialysis October 06, 2 025 12:57pm 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 October 06, 2024 12:57pm Steroid-induced diabetes mellitus Februa ry 2024 12:57pm B12 deficiency October 06, 2024 1:24pm Chemotherapy-induced peripheral neuropat hy October 06, 2024 1:24pm Encounter for chemotherapy management Fe bruary 2024 1:24pm Encounter for coordination of complex ca re October 06, 2024 1:24pm History of anemia due to vitamin B12 def iciency October 06, 2024 1:24pm History of hemodialysis October 06, 2 025 1:24pm Iron deficiency anemia October 06 1:24pm 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 October 06, 2024 1:24pm Rash and nonspecific skin eruption Febru vaughn 2024 1:24pm Steroid-induced diabetes mellitus Februa ry 2024 1:24pm Superficial thrombophlebitis of left upp er extremity October 06, 2024 1:24pm Urinary incontinence October 06, 2024 1:24pm Acute renal failure on dialysis October 06, 2024 1:24pm Anemia of renal disease October 06 2 025 1:24pm Chief Complaint Admit Date F/U Renal August 03, 2024 3:32pm e11.9 e83.39 n18.4 d63.1 n28.89 c90.00 [facility] 2024 12:11pm renal 3 month f/u October 04, 2024 3:21pm Follow Up October 06, 2024 12:57pm Multiple Myloma October 06, 2024 1:24pm Unknown October 17, 2024 1:00 pm Chief Complaint Admit Date e11.9 e83.39 n18.4 d63.1 n28.89 c90.00 [facility] 2024 12:11pm renal 3 month f/u October 04, 2024 3:21pm Follow Up October 06, 2024 12:57pm Multiple Myloma October 06, 2024 1:24pm Unknown October 17, 2024 1:00 pm Unknown November 09, 2024 3:3 9pm Reason for Visit Admit Date Anemia of chronic renal failure, stage 4 (severe) October 04, 2024 3:21pm Diabetes 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 Feb ruary 2024 3:21pm Hypophosphatemia February 18th, 2025 3:21pm History of anemia due to vitamin B12 def iciency October 04, 2024 3:21pm 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 October 04, 2024 3:21pm Hyperkalemia October 04, 2024 3:21pm Stage 3b chronic kidney disease (CKD) Fe [facility] 2024 3:21pm Anemia of chronic renal failure, stage 4 (severe) October 06, 2024 12:57pm B12 deficiency October 06, 2024 12:57pm Encounter for coordination of complex ca re October 06, 2024 12:57pm History of hemodialysis October 06 025 12:57pm 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 October 06, 2024 12:57pm Steroid-induced diabetes mellitus Februa 2024 12:57pm B12 deficiency October 06, 2024 1:24pm Chemotherapy-induced peripheral neuropat hy October 06, 2024 1:24pm Encounter for chemotherapy management [facility] 2024 1:24pm Encounter for coordination of complex ca re October 06, 2024 1:24pm History of anemia due to vitamin B12 def iciency October 06, 2024 1:24pm History of hemodialysis October 06 025 1:24pm Iron deficiency anemia October 06 1:24pm 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 October 06, 2024 1:24pm Rash and nonspecific skin eruption Febru vaughn 2024 1:24pm Steroid-induced diabetes mellitus Februa ry 2024 1:24pm Superficial thrombophlebitis of left upp er extremity October 06, 2024 1:24pm Urinary incontinence October 06, 2024 1:24pm Acute renal failure on dialysis October 06, 2024 1:24pm Anemia of renal disease October 06 025 1:24pm Chief Complaint Admit Date e11.9 e83.39 n18.4 d63.1 n28.89 c90.00 F ebruary 2024 12:11pm renal 3 month f/u October 04, 2024 3:21pm Follow Up October 06, 2024 12:57pm Unknown October 17, 2024 1:00 pm Unknown November 09, 2024 3:3 9pm Multiple Myloma November 11, 2024 11: 25am E11.9 I10 Z13.296 November 11, 2024 11: 27am Reason for Visit Admit Date Anemia of chronic renal failure, stage 4 (severe) October 04, 2024 3:21pm Diabetes 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 Feb ruary 2024 3:21pm Hypophosphatemia October 04, 2024 3:21pm History of anemia due to vitamin B12 def iciency October 04, 2024 3:21pm 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 October 04, 2024 3:21pm Hyperkalemia October 04, 2024 3:21pm Stage 3b chronic kidney disease (CKD) Fe bruary 2024 3:21pm Anemia of chronic renal failure, stage 4 (severe) October 06, 2024 12:57pm B12 deficiency October 06, 2024 12:57pm Encounter for coordination of complex ca re October 06, 2024 12:57pm History of hemodialysis October 06 12:57pm 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 November 11, 2024 11:25am Rash and nonspecific skin eruption November 11, 2024 11:25am Steroid-induced diabetes mellitus November 11, 2024 11:25am Superficial thrombophlebitis of left upp er extremity November 11, 2024 11:25am Urinary incontinence November 11, 2024 11 :25am Acute renal failure on dialysis November 112024 11:25am Anemia of renal disease November 11, 2024 11:25am Chief Complaint Admit Date e11.9 e83.39 n18.4 d63.1 n28.89 c90.00 F ebruary 2024 12:11pm renal 3 month f/u October 04, 2024 3:21pm Follow Up October 06, 2024 12:57pm Unknown October 17, 2024 1:00 pm Unknown November 09, 2024 3:3 9pm E11.9 I10 Z13.296 November 11, 2024 11: 27am Multiple Myloma December 14, 2024 11: 25am N13.5 N13.30 December 14, 2024 11: 27am Reason for Visit Admit Date Anemia of chronic renal failure, stage 4 (severe) October 04, 2024 3:21pm Diabetes 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 Feb ruary 2024 3:21pm Hypophosphatemia October 04, 2024 3:21pm History of anemia due to vitamin B12 def iciency October 04, 2024 3:21pm 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 October 04, 2024 3:21pm Hyperkalemia October 04, 2024 3:21pm Stage 3b chronic kidney disease (CKD) Fe bruary 2024 3:21pm Anemia of chronic renal failure, stage 4 (severe) October 06, 2024 12:57pm B12 deficiency October 06, 2024 12:57pm Encounter for coordination of complex ca re October 06, 2024 12:57pm History of hemodialysis October 06 12:57pm 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 October 06, 2024 12:57pm Steroid-induced diabetes mellitus Februa 2024 12:57pm B12 deficiency December 14, 2024 11: 25am Chemotherapy-induced peripheral neuropat hy December 14, 2024 11:25am Encounter for chemotherapy management Ap ril 2024 11:25am Encounter for coordination of complex ca re December 14, 2024 11:25am History of anemia due to vitamin B12 def iciency December 14, 2024 11:25am History of hemodialysis December 14, 2024 11:25am Iron deficiency anemia December 14, 2024 11:25am 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 December 14, 2024 11:25am Rash and nonspecific skin eruption December 14, 2024 11:25am Steroid-induced diabetes mellitus December 14, 2024 11:25am Superficial thrombophlebitis of left upp er extremity December 14, 2024 11:25am Urinary incontinence December 14, 2024 11 :25am Acute renal failure on dialysis December 142024 11:25am Anemia of renal disease December 14, 2024 11:25am Chief Complaint Admit Date renal 3 month f/u October 04, 2024 3:21pm Follow Up October 06, 2024 12:57pm Unknown October 17, 2024 1:00 pm Unknown November 09, 2024 3:3 9pm E11.9 I10 Z13.296 November 11, 2024 11: 27am Multiple Myloma December 14, 2024 11: 25am N13.5 N13.30 December 14, 2024 11: 27am E11.9, E83.39, Z86.2, N18.4, D63.1, N28. 89, C90.00 December 28, 2024 12:33pm Chief Complaint Admit Date E11.9 I10 Z13.296 November 11, 2024 11: 27am N13.5 N13.30 December 14, 2024 11: 27am E11.9, E83.39, Z86.2, N18.4, D63.1, N28. 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 January 03, 2025 2:39pm Hyperkalemia January 03, 2025 2:39p m Stage 3b chronic kidney disease (CKD) Ma y 2024 2:39pm Anemia of chronic renal failure, stage 4 (severe) February 08, 2025 1:54pm B12 deficiency February 08, 2025 1:54 pm Encounter for coordination of complex ca re February 08, 2025 1:54pm History of hemodialysis February 08, 2025 1:54pm 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 February 08, 2025 1:54pm Steroid-induced diabetes mellitus January 162024 1:54pm B12 deficiency February 08, 2025 2:04 pm Chemotherapy-induced peripheral neuropat hy February 08, 2025 2:04pm Encounter for chemotherapy management Ju 2024 2:04pm Encounter for coordination of complex ca re February 08, 2025 2:04pm History of anemia due to vitamin B12 def iciency February 08, 2025 2:04pm History of hemodialysis February 08, 2025 2:04pm Iron deficiency anemia February 08, 2025 2 :04pm 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 February 08, 2025 2:04pm Rash and nonspecific skin eruption February 08, 2025 2:04pm Steroid-induced diabetes mellitus January 162024 2:04pm Superficial thrombophlebitis of left upp er extremity February 08, 2025 2:04pm Urinary incontinence February 08, 2025 2:0 4pm Acute renal failure on dialysis January 2:04pm Anemia of renal disease February 08, 2025 2:04pm Chief Complaint Admit Date Follow Up 4 Months February 08, 2025 1:54 pm Z01.812 N13.30 N18.4 n1330 April 05, 2025 1:14pm Multiple Myloma April 05, 2025 1: 24pm Reason for Visit Admit Date Anemia of chronic renal failure, stage 3 (moderate) February 08, 2025 1:54pm Complicated urinary tract infection February 08, 2025 1:54pm B12 deficiency February 08, 2025 1:54 pm Encounter for coordination of complex ca re February 08, 2025 1:54pm History of hemodialysis February 08, 2025 1:54pm 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 February 08, 2025 1:54pm Steroid-induced diabetes mellitus January 162024 1:54pm B12 deficiency April 05, 2025 1: 24pm Chemotherapy-induced peripheral neuropat hy April 05, 2025 1:24pm Encounter for chemotherapy management [place] 2024 1:24pm Encounter for coordination of complex ca re April 05, 2025 1:24pm History of anemia due to vitamin B12 def iciency April 05, 2025 1:24pm History of hemodialysis April 05 1:24pm Iron deficiency anemia April 05, 2025 1:24pm 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 April 05, 2025 1:24pm Rash and nonspecific skin eruption [facility] 2024 1:24pm Steroid-induced diabetes mellitus April 05, 2025 1:24pm Superficial thrombophlebitis of left upp er extremity April 05, 2025 1:24pm Urinary incontinence April 05, 2025 1 :24pm Acute renal failure on dialysis March 182024 1:24pm Anemia of renal disease April 05 1:24pm Reason for Referral Referred by: Diego RICKS, Orquidea Taylor Additional Source Comments (unrecognized sect ion [...] section and content) DATE CREATED AUTHOR 09/07/2020 [employer] DATE CREATED AUTHOR AUTHOR'S ORGANIZ ATION 11/06/2022 [facility] DATE CREATED AUTHOR AUTHOR'S ORGANIZ ATION 12/15/2022 [facility] DATE CREATED AUTHOR AUTHOR'S ORGANIZ ATION 01/11/2024 [facility] DATE CREATED AUTHOR AUTHOR'S ORGANIZ ATION 01/19/2024 [place] [facility] DATE CREATED AUTHOR AUTHOR'S ORGANIZ ATION 01/21/2024 [facility] [place] [facility] DATE CREATED AUTHOR AUTHOR'S ORGANIZ ATION [facility]/10[facility]2024 [facility] DATE CREATED AUTHOR AUTHOR'S ORGANIZ ATION 03/21/2024 [place] [facility] DATE CREATED AUTHOR AUTHOR'S ORGANIZ ATION 04/20/2024 [facility] DATE CREATED AUTHOR AUTHOR'S ORGANIZ ATION 04/23/2024 [facility] DATE CREATED AUTHOR AUTHOR'S ORGANIZ ATION 06/04/2024 [facility] [place] [facility] DATE CREATED AUTHOR AUTHOR'S ORGANIZ ATION 08/26/2024 [facility] DATE CREATED AUTHOR AUTHOR'S ORGANIZ ATION 08/30/2024 [facility] DATE CREATED AUTHOR AUTHOR'S ORGANIZ ATION 09/10/2024 [facility] DATE CREATED AUTHOR AUTHOR'S ORGANIZ ATION 09/13/2024 [facility] [place] [facility] DATE CREATED AUTHOR AUTHOR'S ORGANIZ ATION 11/12/2024 [facility] DATE CREATED AUTHOR AUTHOR'S ORGANIZ ATION 11/19/2024 [facility] [place] [facility] DATE CREATED AUTHOR AUTHOR'S ORGANIZ ATION 12/02/2024 [facility] [place] [facility] DATE CREATED AUTHOR AUTHOR'S ORGANIZ ATION 12/25/2024 [facility] DATE CREATED AUTHOR AUTHOR'S ORGANIZ ATION 01/15/2025 [facility] [place] [facility] DATE CREATED AUTHOR AUTHOR'S ORGANIZ ATION 02/03/2025 [facility] [place] [facility] DATE CREATED AUTHOR AUTHOR'S ORGANIZ ATION 02/23/2025 [facility] [place] [facility] DATE CREATED AUTHOR AUTHOR'S ORGANIZ ATION 02/24/2025 [facility] [place] [facility] DATE CREATED AUTHOR AUTHOR'S ORGANIZ ATION 03/01/2025 [facility] DATE CREATED AUTHOR AUTHOR'S ORGANIZ ATION 03/08/2025 [facility] [place] [facility] DATE CREATED AUTHOR AUTHOR'S ORGANIZ ATION 03/10/2025 [facility] [place] [facility] DATE CREATED AUTHOR AUTHOR'S ORGANIZ ATION 03/11/2025 [facility] DATE CREATED AUTHOR AUTHOR'S ORGANIZ ATION 03/19/2025 [facility] DATE CREATED AUTHOR AUTHOR'S ORGANIZ ATION 03/22/2025 [facility] DATE CREATED AUTHOR AUTHOR'S ORGANIZ ATION 03/30/2025 [facility] DATE CREATED AUTHOR AUTHOR'S ORGANIZ ATION 04/07/2025 [facility] DATE CREATED AUTHOR AUTHOR'S ORGANIZ ATION 04/15/2025 [facility] Care Team (unrecognized sect ion and content) Team Status: Active Member Role Status Dates Helen Heath MD Primary Care Provider Active Team Status: Inactive Member Role Status Dates Helen Heath MD Primary Care Provider Active Start: January 19, 2024 End: January 22, 2024 Ramesh Seals MD Emergency Provider Active Star t: January 19, 2024 End: January 22, 2024 Clarence Miller DO Admit Provider, Attending Provider Active Start: January 19, 2024 End: January 22, 2024 Price Crain MD Other Provider Active Start: 2023 End: January 22, 2024 Delmar Wilburn MD Other Provider Active Start: January 19, 2024 End: January 22, 2024 Team Status: Active Member Role Status Dates Helen Heath MD Primary Care Provider Active Start: January 21, 2024 End: January 22, 2024 Ramesh Seals MD Emergency Provider Active Star t: January 21, 2024 End: January 22, 2024 Clarence Miller DO Admit Provider, Other Provider Act gabriela Start: January 21, 2024 End: January 22, 2024 Price Crain MD Attending Provider, Other Provider A ctive Start: January 21, 2024 End: January 22, 2024 Team Status: Inactive Member Role Status Dates Helen Heath MD Primary Care Provider Active Start: 2024 End: 2024 Brook Huddleston MD Attending Provider Active Start: 2024 End: 2024 Team Status: Active Member Role Status Dates Helen Heath MD Primary Care Provider Active Start: February 19, 2024 Brook Huddleston MD Attending Provider Active Start: February 19, 2024 Team Status: Inactive Member Role Status Sue Heath MD Primary Care Provider Active Start: February 25, 2024 End: February 25, 2024 Orquidea Cortez MD Attending Provider Active Start : February 25, 2024 End: February 25, 2024 Team Status: Active Member Role Status Sue Heath MD Primary Care Provider Active Start: December 18, 2023 Brook Huddleston MD Attending Provider Active Start: December 18, 2023 Team Status: Active Member Role Status Dates Helen Heath MD Primary Care Provider Active Start: January 21, 2024 Ramesh Seals MD Emergency Provider Active Star t: January 21, 2024 Clarence Miller DO Admit Provider, Other Provider Act gabriela Start: January 21, 2024 Price Crain MD Attending Provider, Other Provider A ctive Start: January 21, 2024 Team Status: Active Member Role Status Dates [...] Helen Heath MD Primary Care Provider Active Orquidea Cortez MD Attending Provider Active Price Crain MD Referring Provider Active Team Status: Inactive Member Role Status Dates Helen Heath MD Primary Care Provider Active Orquidea Cortez MD Attending Provider Active Team Status: Inactive Member Role Status Dates Helen Heath MD Primary Care Provider, Attending P aleja Active Team Status: Inactive Member Role Status Dates Helen Heath MD Primary Care Provider, Other Provi janet Active Orquidea Cortez MD Attending Provider Active Resource Agent Relationship Specialty Start Date End Date Helen Heath MD [facility] [place] [id number] PCP - General Family Medicine 02/11/23 Resource Agent Relationship Specialty Start Date End Date Helen Heath MD [address] [place] [phone] PCP - General Family Medicine 02/11/23 Team Status: Inactive Member Role Status Dates Helen Heath MD Primary Care Provider Active Start: July 14, 2023 End: July 14, 2023 Orquidea Cortez MD Attending Provider Active Start : July 14, 2023 End: July 14, 2023 Team Status: Active Member Role Status Dates Helen Heath MD Primary Care Provider Active Start: October 01, 2023 Brook Huddleston MD Attending Provider Active Start: October 01, 2023 Team Status: Inactive Member Role Status Sue Heath MD Primary Care Provider Active Start: October 01, 2023 End: October 01, 2023 Brook Huddleston MD Attending Provider Active Start: October 01, 2023 End: October 01, 2023 Team Status: Inactive Member Role Status Sue Heath MD Primary Care Provider Active Start: October 26, 2023 End: October 26, 2023 Price Crain MD Attending Provider Active Star t: October 26, 2023 End: October 26, 2023 Team Status: Active Member Role Status Sue Heath MD Primary Care Provider Active Start: October 29, 2023 Brook Huddleston MD Attending Provider Active Start: October 29, 2023 Team Status: Inactive Member Role Status Sue Heath MD Primary Care Provide r, Attending Provider Active Start: November 04, 2023 End: November 04, 2023 Team Status: Active Member Role Status Sue Heath MD Primary Care Provider Active Start: January 19, 2024 Ramesh Seals MD Emergency Provider Active Star t: January 19, 2024 Clarence Miller DO Admit Provider, Attending Provider Active Start: January 19, 2024 Team Status: Inactive Member Role Status Sue Heath MD Primary Care Provide r, Other Provider Active Start: February 29, 2024 End: February 29, 2024 Price Crain MD Attending Provider Active Star t: February 29, 2024 End: February 29, 2024 Team Status: Active Member Role Status Sue Heath MD Primary Care Provider Active Start: February 29, 2024 Brook Huddleston MD Attending Provider Active Start: February 29, 2024 Team Status: Active Member Role Status Sue Heath MD Primary Care Provider Active Start: March 08, 2024 Brook Huddleston MD Attending Provider Active Start: March 08, 2024 Team Status: Inactive Member Role Status Sue Heath MD Primary Care Provider Active Start: March 08, 2024 End: March 08, 2024 Price Crain MD Attending Provider Active Star t: March 08, 2024 End: March 08, 2024 Team Status: Active Member Role Status Sue Heath MD Primary Care Provider Active Start: June 01, 2024 Orquidea Cortez MD Attending Provider Active Start : June 01, 2024 Team Status: Active Member Role Status Dates Helen Heath MD Primary Care Provider Active Start: June 02, 2024 Brook Huddleston MD Attending Provider Active Start: June 02, 2024 Team Status: Inactive Member Role Status Dates Helen Heath MD Primary Care Provider Active Start: June 02, 2024 End: June 02, 2024 Brook Huddleston MD Attending Provider Active Start: June 02, 2024 End: June 02, 2024 Team Status: Active Member Role Status Dates Helen Heath MD Primary Care Provider Active Start: June 02, 2024 Dong Smith PA-C Emergency Provider Active Start: June 02, 2024 Mayda Matthews MD Admit Provider, A ttending Provider Active Start: June 02, 2024 Domonique Rahman MD Other Provider Active Start: Oc 2023 Orquidea Cortez MD Other Provider Active Start: Oc 2023 Team Status: Inactive Member Role Status Dates Helen Heath MD Primary Care Provider Active Start: June 01, 2024 End: June 01, 2024 Orquidea Cortez MD Attending Provider Active Start : June 01, 2024 End: June 01, 2024 Team Status: Inactive Member Role Status Dates Helen Heath MD Primary Care Provider Active Start: June 02, 2024 End: June 05, 2024 Dong Smith PA-C Emergency Provider Active Start: June 02, 2024 End: June 05, 2024 Mayda Matthews MD Admit Provider, A ttending Provider Active Start: June 02, 2024 End: June 05, 2024 Domonique Rahman MD Other Provider Active Start: Oc 2023 End: June 05, 2024 Orquidea Cortez MD Other Provider Active Start: Oc 2023 End: June 05, 2024 Team Status: Active Member Role Status Dates Helen Heath MD Primary Care Provider Active Start: June 03, 2024 Dong Smith PA-C Emergency Provider Active Start: June 03, 2024 Mayda Matthews MD Admit Provider, O ther Provider Active Start: June 03, 2024 Domonique Rahman MD Attending Provider, Other Provider Active Start: June 03, 2024 Orquidea Cortez MD Other Provider Active Start: [facility]2023 Team Status: Inactive Member Role Status Sue Heath MD Primary Care Provider Active Start: June 08, 2024 End: June 08, 2024 Domonique Rahman MD Attending Provider Active Start : June 08, 2024 End: June 08, 2024 Team Status: Inactive Member Role Status Sue Heath MD Primary Care Provider Active Start: June 23, 2024 End: June 23, 2024 Price Crain MD Attending Provider Active Star t: June 23, 2024 End: June 23, 2024 Team Status: Active Member Role Status Sue Heath MD Primary Care Provider Active Start: June 23, 2024 Brook Huddleston MD Attending Provider Active Start: June 23, 2024 Team Status: Inactive Member Role Status Sue Heath MD Primary Care Provider Active Start: June 29, 2024 End: June 29, 2024 Price Crain MD Attending Provider Active Star t: June 29, 2024 End: June 29, 2024 Team Status: Inactive Member Role Status Sue Heath MD Primary Care Provider Active Start: August 03, 2024 End: August 03, 2024 Price Crain MD Attending Provider Active Star t: August 03, 2024 End: August 03, 2024 Team Status: Inactive Member Role Status Sue Heath MD Primary Care Provider Active Start: September 27, 2024 End: September 27, 2024 Price Crain MD Attending Provider Active Star t: September 27, 2024 End: September 27, 2024 Team Status: Active Member Role Status Sue Heath MD Primary Care Provider Active Start: September 27, 2024 Brook Huddleston MD Attending Provider Active Start: September 27, 2024 Team Status: Inactive Member Role Status Sue Heath MD Primary Care Provider Active Start: October 04, 2024 End: October 04, 2024 Price Crain MD Attending Provider Active Star t: October 04, 2024 End: October 04, 2024 Team Status: Inactive Member Role Status Sue Heath MD Primary Care Provider Active Start: October 06, 2024 End: October 06, 2024 Brook Huddleston MD Attending Provider Active Start: October 06, 2024 End: October 06, 2024 Team Status: Active Member Role Status Sue Heath MD Primary Care Provider Active Start: October 06, 2024 Brook Huddleston MD Attending Provider Active Start: October 06, 2024 Team Status: Inactive Member Role Status Sue Cortez MD Attending Provider Active Start : October 17, 2024 End: October 17, 2024 Team Status: Inactive Member Role Status Sue Cortez MD Attending Provider Active Start : November 09, 2024 End: November 09, 2024 Team Status: Active Member Role Status Sue Heath MD Primary Care Provider Active Start: November 11, 2024 Brook Huddleston MD Attending Provider Active Start: November 11, 2024 Team Status: Inactive Member Role Status Sue Heath MD Primary Care Provide r, Attending Provider Active Start: November 11, 2024 End: November 11, 2024 Team Status: Active Member Role Status Sue Heath MD Primary Care Provider Active Start: December 14, 2024 Brook Huddleston MD Attending Provider Active Start: December 14, 2024 Team Status: Inactive Member Role Status Sue Heath MD Primary Care Provider Active Start: December 14, 2024 End: December 14, 2024 Orquidea Cortez MD Attending Provider Active Start : December 14, 2024 End: December 14, 2024 Team Status: Inactive Member Role Status Sue Heath MD Primary Care Provider Active Start: December 28, 2024 End: December 28, 2024 Price Crain MD Attending Provider Active Star t: December 28, 2024 End: December 28, 2024 Team Status: Inactive Member Role Status Sue Heath MD Primary Care Provider Active Start: November 11, 2024 End: November 11, 2024 Helen Heath MD Attending Provider Active St art: November 11, 2024 End: November 11, 2024 Team Status: Inactive Member Role Status Sue Heath MD Primary Care Provider Active Start: January 03, 2025 End: January 03, 2025 Price Crain MD Attending Provider Active Star t: January 03, 2025 End: January 03, 2025 Team Status: Inactive Member Role Status Sue Heath MD Primary Care Provider Active Start: February 08, 2025 End: February 08, 2025 Brook Huddleston MD Attending Provider Active Start: February 08, 2025 End: February 08, 2025 Team Status: Active Member Role Status Dates Helen Heath MD Primary Care Provider Active Start: February 08, 2025 Brook Huddleston MD Attending Provider Active Start: February 08, 2025 Resource Agent Relationship Specialty Start Date End Date Helen Heath MD [address] [facility] [place] [address] PCP - General Family Medicine 02/11/23 Resource Agent Relationship Specialty Start Date End Date Helen Heath MD [address] [place] [address] PCP - General Family Medicine 02/11/23 Resource Agent Relationship Specialty Start Date End Date Helen Heath MD [address] [place] [address] PCP - General Family Medicine 02/11/23 Resource Agent Relationship Specialty Start Date End Date Helen Heath MD [facility] [facility] [place] [address] PCP - General Family Medicine 02/11/23 Team Status: Inactive Member Role Status Dates Helen Heath MD Primary Care Provider Active Start: April 05, 2025 End: April 05, 2025 Carito Martell PA-C Attending Provider Active Start: April 05, 2025 End: April 05, 2025 Orquidae Cortez MD Other Provider Active Start: 2024 End: April 05, 2025 Team Status: Active Member Role Status Dates Helen Heath MD Primary Care Provider Active Start: April 05, 2025 Brook Huddleston MD Attending Provider Active Start: April 05, 2025 Resource Agent Relationship Specialty Start Date End Date Helen Heath MD [address] [place] [address] PCP - General Family Medicine 02/11/23 Resource Agent Relationship Specialty Start Date End Date Helen Heath MD [address] [place] [address] PCP - General Family Medicine 02/11/23 REASON FOR VISIT (unrecogniz ed section and content) Reason Comments Follow Up Reason Comments Anesthesia Consult Urethral stricture Reason Onset Date Comments Refill Request 02/25/2023 Reason Comments neph tube placement Reason Comments Radiology Pre Procedure Instructions Reason Comments IR Outpatient Tube Appointment Request Reason Comments Opened In Error Reason Comments Patient Update Goals (unrecognized section and content) Goals may be documented in a n alternate section Source Comments (unrecognize d section and content) In the event this informatio n is protected by the Federal Confidentiality of Alcohol and Drug Abuse Patient Records regulations: The Federal rules restrict any use of the information to criminally investigate or prosecute any alcohol or drug abuse patient.[facility] the event this information is protected by the Federal Confidentiality of Alcohol and Drug Abuse Patient Records regulations: The Federal rules restrict any use of the information to criminally investigate or prosecute any alcohol or drug abuse patient.[facility] Center[facility] the event this information is protected by the Federal Confidentiality of Alcohol and Drug Abuse Patient Records regulations: The Federal rules restrict any use of the information to criminally investigate or prosecute any alcohol or drug abuse patient.[facility] the event this information is protected by the Federal Confidentiality of Alcohol and Drug Abuse Patient Records regulations: The Federal rules restrict any use of the information to criminally investigate or prosecute any alcohol or drug abuse patient.[facility] the event this information is protected by the Federal Confidentiality of Alcohol and Drug Abuse Patient Records regulations: The Federal rules restrict any use of the information to criminally investigate or prosecute any alcohol or drug abuse patient.[facility] the event this information is protected by the Federal Confidentiality of Alcohol and Drug Abuse Patient Records regulations: The Federal rules restrict any use of the information to criminally investigate or prosecute any alcohol or drug abuse patient.[facility] Center[facility] the event this information is protected by the Federal Confidentiality of Alcohol and Drug Abuse Patient Records regulations: The Federal rules restrict any use of the information to criminally investigate or prosecute any alcohol or drug abuse patient.[facility] the event this information is protected by the Federal Confidentiality of Alcohol and Drug Abuse Patient Records regulations: The Federal rules restrict any use of the information to criminally investigate or prosecute any alcohol or drug abuse patient.[facility] the event this information is protected by the Federal Confidentiality of Alcohol and Drug Abuse Patient Records regulations: The Federal rules restrict any use of the information to criminally investigate or prosecute any alcohol or drug abuse patient.[facility] Center[facility] the event this information is protected by the Federal Confidentiality of Alcohol and Drug Abuse Patient Records regulations: The Federal rules restrict any use of the information to criminally investigate or prosecute any alcohol or drug abuse patient.[facility] Center[facility] the event this information is protected by the Federal Confidentiality of Alcohol and Drug Abuse Patient Records regulations: The Federal rules restrict any use of the information to criminally investigate or prosecute any alcohol or drug abuse patient.[facility] Center[facility] the event this information is protected by the Federal Confidentiality of Alcohol and Drug Abuse Patient Records regulations: The Federal rules restrict any use of the information to criminally investigate or prosecute any alcohol or drug abuse patient.[facility] Center[facility] the event this information is protected by the Federal Confidentiality of Alcohol and Drug Abuse Patient Records regulations: The Federal rules restrict any use of the information to criminally investigate or prosecute any alcohol or drug abuse patient.[facility] FOR RECORDS PERTAINING TO PATIENTS WHO ARE [...] BE BASED ON THE PRIMARY CLINICAL RECORDS. [facility] [employer] [facility]. provides no warranty or guarantee of the accuracy or completeness of information in this document.
--- NOTE | 2025-04-19 17:02 | ED.GENADUL1 ---
HPI HPI - General Adult General Chief complaint: Recheck/Abnormal Lab/Rx Stated complaint: HAD A STICH COME OUT Time Seen by Provider: 04/19/25 11:12 Source: patient Mode of arrival: walk-in Limitations: no limitations History of Present Illness HPI narrative: Patient is an 80-year-old male presenting to the emergency department for evaluation of a dislodged suture for his left-sided nephrostomy tube. Patient spoke with his record cutter, who recommended seeking local ED evaluation for a new stitch. Other than stitch being accidentally removed, the patient has no other complaints. He states the nephrostomy tubes are functioning appropriately. He denies any pain surrounding the site. He denies any dislodgment of the tube itself. Denies any pus/drainage, surrounding redness, or tenderness around the site. No fevers or chills. No abdominal pain, nausea, or vomiting. No chest pain or shortness of breath. Related Data Home Medications ?Medication ?Instructions ?Recorded ?Confirmed Lactobacillus acidophilus 10 100 mmu cells PO DAILY 06/01/23 11/09/24 billion cell capsule (Probiotic) aspirin 81 mg capsule 81 mg PO DAILY 06/01/23 11/09/24 atorvastatin 20 mg tablet 20 mg PO .QHS 06/01/23 11/09/24 cholecalciferol (vitamin D3) 50 2,000 unit PO DAILY 06/01/23 11/09/24 mcg (2,000 unit) capsule docusate sodium 100 mg capsule 100 mg PO .QHS 06/01/23 11/09/24 (Stool Softener) famotidine 20 mg tablet 20 mg PO .QHS 06/01/23 11/09/24 insulin glargine 100 unit/mL (3 20 unit subcut QPM 06/01/23 11/09/24 mL) subcutaneous pen (Lantus Solostar U-100 Insulin) insulin lispro 100 unit/mL 1 - 11 sliding scale dose subcut 06/01/23 11/09/24 subcutaneous pen TIDWM iron bis glycinate lashon 28 mg 1 cap PO DAILY 06/01/23 11/09/24 iron-vit C 60 mg-FA 400 mcg-B12 8mcg cap (Gentle Iron) oxybutynin chloride 10 mg 10 mg PO QPM 06/01/23 11/09/24 tablet,extended release 24 hr cyanocobalamin (vitamin B-12) 1,000 mcg PO DAILY 07/21/24 11/09/24 1,000 mcg tablet (Vitamin B-12) darbepoetin raymond in polysorbat 10 10 mcg subcut .EVERY OTHER WEEK 07/21/24 10/17/24 mcg/0.4 mL in polysorbate injection syringe (Aranesp) insulin lispro 100 unit/mL 8 unit subcut TIDWM 07/21/24 11/09/24 subcutaneous pen acetaminophen 500 mg capsule 500 mg PO Q6H PRN pain 10/17/24 11/09/24 cranberry extract 500 [id number] 2 tab PO DAILY 10/17/24 11/09/24 50 mg chewable tablet Allergies Allergy/AdvReac Type Severity Reaction Status Date / Time lisinopril Allergy Cough Verified 10/17/24 09:26 [email or web address] (From Myrbetriq) Allergy Rash Verified 10/17/24 09:26 latex AdvReac Mild Rash Verified 04/19/25 11:12 gabapentin AdvReac not Verified 10/17/24 09:26 effective Opioid HPI Opioid Management Most Recent Opioid Data: Last Pain Scale 5 11/09/24, 13:40 Last Pain Intensity 2 07/21/24, 16:31 Last ORT Total Score 4 07/20/24, 17:12 Last ORT Risk Category Moderate Risk 07/20/24, 17:12 Review of Systems ROS Status of ROS 10 or more systems reviewed and unremarkable except as noted in history and below [facility] Medical History (Updated 04/19/25 @ 11:36 by Kenny Gutierrez DO) History of blood transfusion ?Z92.89 - Personal history of other medical treatment (ICD-10) Noncompliant bladder ?N31.9 - Neuromuscular dysfunction of bladder, unspecified (ICD-10) Orthostatic dizziness ?R42 - Dizziness and giddiness (ICD-10) Lactic acidosis ?E87.20 - Acidosis, unspecified (ICD-10) Leukocytosis ?D72.829 - Elevated white blood cell count, unspecified (ICD-10) Catheter-associated urinary tract infection ?T83.511A - Infection and inflammatory reaction due to indwelling urethral catheter, initial encounter (ICD-10) ?N39.0 - Urinary tract infection, site not specified (ICD-10) RINA (acute kidney injury) ?N17.9 - Acute kidney failure, unspecified (ICD-10) Acute on chronic kidney failure ?N17.9 - Acute kidney failure, unspecified (ICD-10) ?N18.9 - Chronic kidney disease, unspecified (ICD-10) Dehydration ?E86.0 - Dehydration (ICD-10) Sepsis ?A41.9 - Sepsis, unspecified organism (ICD-10) Urinary tract infection ?N39.0 - Urinary tract infection, site not specified (ICD-10) CKD stage 3b, GFR 30-44 ml/min ?N18.32 - Chronic kidney disease, stage 3b (ICD-10) Diabetes ?E11.9 - Type 2 diabetes mellitus without complications (ICD-10) Dizziness ?R42 - Dizziness and giddiness (ICD-10) Suprapubic catheter ?Z93.59 - Other cystostomy status (ICD-10) Overactive bladder ?N32.81 - Overactive bladder (ICD-10) Ureteral stricture ?N13.5 - Crossing vessel and stricture of ureter without hydronephrosis (ICD-10) Hydroureteronephrosis ?N13.30 - Unspecified hydronephrosis (ICD-10) Prostate cancer ?C61 - Malignant neoplasm of prostate (ICD-10) Hydroureter ?N13.4 - Hydroureter (ICD-10) Hydronephrosis ?N13.30 - Unspecified hydronephrosis (ICD-10) Benign prostatic hyperplasia ?N40.0 - Benign prostatic hyperplasia without lower urinary tract symptoms (ICD-10) Arthritis ?M19.90 - Unspecified osteoarthritis, unspecified site (ICD-10) Rheumatoid arthritis ?M06.9 - Rheumatoid arthritis, unspecified (ICD-10) Neuropathy ?G62.9 - Polyneuropathy, unspecified (ICD-10) Sleep apnea ?G47.30 - Sleep apnea, unspecified (ICD-10) Nausea ?R11.0 - Nausea (ICD-10) Weakness ?R53.1 - Weakness (ICD-10) Multiple myeloma ?C90.00 - Multiple myeloma not having achieved remission (ICD-10) Sepsis ?A41.9 - Sepsis, unspecified organism (ICD-10) High cholesterol ?E78.00 - Pure hypercholesterolemia, unspecified (ICD-10) S/P extracorporeal shock wave therapy ?Z98.890 - Other specified postprocedural states (ICD-10) Urinary retention ?R33.9 - Retention of urine, unspecified (ICD-10) Dyspnea on exertion ?R06.09 - Other forms of dyspnea (ICD-10) Anemia ?D64.9 - Anemia, unspecified (ICD-10) History of blood transfusion ?Z92.89 - Personal history of other medical treatment (ICD-10) Urinary tract infection ?N39.0 - Urinary tract infection, site not specified (ICD-10) Kidney stones ?N20.0 - Calculus of kidney (ICD-10) Heartburn ?R12 - Heartburn (ICD-10) Hypertension ?I10 - Essential (primary) hypertension (ICD-10) Diabetes ?E11.9 - Type 2 diabetes mellitus without complications (ICD-10) Surgical History (Updated 10/17/24 @ 09:[address] NP) S/P ureteral stent placement (07/28/24) ?Z96.0 - Presence of urogenital implants (ICD-10) S/P cystoscopy with ureteral stent placement (06/01/24) ?Z96.0 - Presence of urogenital implants (ICD-10) H/O cystoscopy (02/03/24) ?Z98.890 - Other specified postprocedural states (ICD-10) H/O cystoscopy (06/10/23) ?Z98.890 - Other specified postprocedural states (ICD-10) S/P TURP ?Z90.79 - Acquired absence of other genital organ(s) (ICD-10) H/O foot surgery ?Z98.890 - Other specified postprocedural states (ICD-10) History of dental surgery ?Z92.89 - Personal history of other medical treatment (ICD-10) History of throat surgery ?Z98.890 - Other specified postprocedural states (ICD-10) H/O blepharoplasty ?Z98.890 - Other specified postprocedural states (ICD-10) S/P ureteral stent placement ?Z96.0 - Presence of urogenital implants (ICD-10) Stem cells transplant status ?Z94.84 - Stem cells transplant status (ICD-10) 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) History of suprapubic catheter (03/05/23) ?Z98.890 - Other specified postprocedural states (ICD-10) Status post dilation of urethral narrowing ?Z98.890 - Other specified postprocedural states (ICD-10) H/O cataract extraction ?Z98.49 - Cataract extraction status, unspecified eye (ICD-10) H/O cystoscopy (12/10/22) ?Z98.890 - Other specified postprocedural states (ICD-10) Family History (Updated 07/20/24 @ 18:54 by Mikki Hernadez) Grandfather Family history of diabetes mellitus Grandmother Family history of myocardial infarction Other Family history of cancer Family history of stroke Heart disease Social History (Updated 06/10/23 @ 12:07 by Yoselin Diaz) Within the past year, how often did you have a drink containing alcohol: never Score interpretation: A score less than 4 is consistent with normal alcohol consumption. Smoking status: Former smoker Non-prescribed substance use: denies use Highest level of school completed/degree received: high school graduate Little interest or pleasure in doing things: not at all Feeling down, depressed, or hopeless: not at all Do you think of yourself as: straight/heterosexual Gender Identity: male Exam Narrative Exam Narrative: CONSTITUTIONAL: Well-appearing, answering questions and following commands appropriately SKIN: Was warm and dry. EYES: Sclerae white. EARS, NOSE, THROAT: Moist oral mucosa. RESPIRATORY: Clear to auscultation bilaterally, no wheezes, crackles, or stridor, no use of accessory muscles CARDIOVASCULAR: Normal rate and regular rhythm. There is no S3, S4, murmur, rub. GASTROINTESTINAL: Abdomen soft, nontender, nondistended. No rebound tenderness or guarding. There is a left-sided nephrostomy tube that is in place. The nephrostomy site is clean/dry/intact without cellulitic changes or purulent drainage. There is 1 stitch Sp sandal style suture in place MUSCULOSKELETAL: No peripheral edema. NEUROLOGIC: Patient is awake and alert. Facies were symmetrical. Constitutional Vital Signs, click to edit/add: Last Vital Signs Temp 98.6 F 04/19/25 11:12 Pulse 89 04/19/25 11:12 Resp 18 04/19/25 11:12 BP 146/107 H 04/19/25 11:12 Pulse Ox 96 04/19/25 11:12 O2 Del Method Room Air 04/19/25 11:12 Course Vital Signs Vital signs: Vital Signs Temperature 98.6 F 04/19/25 11:12 Pulse Rate 89 04/19/25 11:12 Respiratory Rate 18 04/19/25 11:12 Blood Pressure 146/107 H 04/19/25 11:12 Pulse Oximetry 96 04/19/25 11:12 Oxygen Delivery Method Room Air 04/19/25 11:12 Temperature 98.6 F 04/19/25 11:12 Pulse Rate 89 04/19/25 11:12 Respiratory Rate 18 04/19/25 11:12 Blood Pressure 146/107 H 04/19/25 11:12 Pulse Oximetry 96 04/19/25 11:12 Oxygen Delivery Method Room Air 04/19/25 11:12 Medical Decision Making MDM Narrative Medical decision making narrative: Patient is an 80-year-old male presenting to the emergency department for concerns of accidental removal of a stitch holding in place his left nephrostomy tube. His vitals are within normal limits. He has a normal physical examination. Nephrostomy tube is in place without dislodgment or surrounding infectious changes. The tube is functioning properly. The nephrostomy tube has a single Sp sandal style stitch holding it in place. The patient requested an additional suture to make the tube is secure. I placed an additional Sp sandal style stitch. The patient is now stable for discharge. He is instructed to follow-up with his record cutter for further care. Turn precautions were given including any new or concerning symptoms. Patient understands and agrees the plan. FINAL IMPRESSION: #Acute encounter for left-sided nephrostomy tube care DISPOSITION: Discharged home CONDITION: Good Discharge Plan Discharge Chief Complaint: Recheck/Abnormal Lab/Rx Clinical Impression: Encounter for wound re-check Patient Disposition: Home, Self-Care Time of Disposition Decision: 11:36 Condition: Good Mode of Transportation: Private Vehicle Prescriptions / Home Meds: No Action cyanocobalamin (vitamin B-12) [Vitamin B-12] 1,000 mcg tablet 1,000 mcg PO DAILY Aranesp (in polysorbate) 10 mcg/0.4 mL syringe 10 mcg subcut .EVERY OTHER WEEK Rx Instructions: GIVEN SUBQ EVERY OTHER WEEK IF HGB <10 insulin lispro 100 unit/mL insulin pen 8 unit subcut TIDWM Patient Comments: IN ADDITION TO SLIDING SCALE atorvastatin 20 mg tablet 20 mg PO .QHS famotidine 20 mg tablet 20 mg PO .QHS insulin glargine [Lantus Solostar U-100 Insulin] 100 unit/mL (3 mL) insulin pen 20 unit SUBCUT QPM insulin lispro 100 unit/mL insulin pen 1 - 11 sliding scale dose SUBCUT TIDWM Rx Instructions: [id number] 1 UNIT [phone] 2 UNITS [phone] 3 UNITS [phone] 4 UNITS [phone] 5 UNITS [phone] 6 UNITS [phone] 7 UNITS [phone] UNITS [phone] 9 UNITS [phone] 10 UNITS [phone] 11 UNITS oxybutynin chloride 10 mg tablet extended release 24hr 10 mg PO QPM aspirin 81 mg capsule 81 mg PO DAILY docusate sodium [Stool Softener] 100 mg capsule 100 mg PO .QHS cholecalciferol (vitamin D3) 50 mcg (2,000 unit) capsule 2,000 unit PO DAILY Probiotic 10 billion cell capsule 100 mmu cells PO DAILY Gentle Iron 28 mg iron-60mg -400 mcg-8 mcg capsule 1 cap PO DAILY cranberry [id number] 500-50 mg tablet,chewable 2 tab PO DAILY acetaminophen 500 mg capsule 500 mg PO Q6H PRN (Reason: pain) Print Language: Thai Instructions: Nephrostomy Tube Care (ED) Referrals: HELEN OCHOA [Primary Care Provider, Family Practice] - 1 week Discharge Date/Time: 04/19/25 11:48
== END 2025-04-19 11:48 | disposition home or self-care (01) ==
PROVIDERS: Emergency Provider Student in an Organized Health Care Education/Training Program; PCP Family Medicine
DX: Z46.6 Encounter for fitting and adjustment of urinary device (principal); Z94.84 Stem cells transplant status; Z94.81 Bone marrow transplant status; Z87.891 Personal history of nicotine dependence
CPT/HCPCS: 99284

== ENCOUNTER 2025-04-27 14:06 | Outpatient (OUT) | payer MEDICARE, SELFPAY ==
--- OUTSIDE RECORDS SUMMARY | 2025-04-27 14:55 | XMS_ITS | CCD ---
Author Organization [facility] Care Team Providers Care Lacing Presser Name Role Phone HELEN HEATH Primary Care Physician Price Crain Unavailable MD Helen Heath Attending Provider NO FAMILY, PHYSICIAN Primary Care Provider Unava ilable MD Helen Heath Primary Care Provider MD Brook Huddleston Attending Provider MD Price Crain Attending Provider MD Helen Heath Primary Care Provider MD Brook Huddleston Attending Provider MD Helen Heath Primary Care Provider MD Price Crain Attending Provider MD Brook Huddleston Attending Provider MD Helen Heath Primary Care Provider [phone] MD Helen Heath Primary Care Provider [phone] MD Brook Huddleston Attending Provider MD Helen Heath Primary Care Provider [phone] MD Brook Huddleston Attending Provider MD Orquidea Cortez Attending Provider MD Price Crain Referring Provider MD Helen Heath Primary Care Provider MD Brook Huddleston Attending Provider [phone] MD Brook Huddleston Attending Provider MD Helen Heath Primary Care Provider [phone] MD Orquidea Cortez Attending Provider MD Price Crain Referring Provider MD Helen Heath Other Provider MD Brook Huddleston Attending Provider MD Helen Heath Attending Provider Don, Dr. Helen Perez [facility] MD QUIQUE Mosley Admitting Unavailable NICKI, MD LEI Attending Unavailable Don, Dr. Cervantes Chris [facility] MD QUIQUE Mosley Admitting Unavailable NICKI, MD LEI Attending Unavailable Don, Dr. Helen Perez [facility] BROOK Vargas Attending Unavailable Don, Dr. Cervantes Chris [facility] BROOK Vragas Attending Unavailable Don, Dr. Helen Perez [facility] Ramesh Lyman Attending Unavailable Ramesh Green Referring Unavailable Don, Dr. Helen Perez [facility] MD QUIQUE Mosley Admitting Unavailable MD QUIQUE HALL Attending Unavailable WILFREDO VANESSA Attending Unavailabl e Don, Dr. Helen Perez [facility] MD Brook Vargas Attending Provider [phone] MD Brook Huddleston Attending Provider MD Brook Huddleston Attending Provider LUE, ORQUIDEA M Admitting Unavailable DR HELEN HEATH Primary [facility] [place] Unavailable LUE, ORQUIDEA M Attending Unavailable Chad Quintero Consulting Unavailable LUE, ORQUIDEA M Consulting Unavailable VANDANA Cartwright, DR PATSY Payne Admitting Unavaila daisy HEATH, DR CERVANTES Primary Care Unavailable VANDANA Cartwright, [...] ble FLAQUITO, DR BROOK Marrero Consulting Unavailable VANDANA MCHUGH ., DR PATSY Payne Consulting Unavaila ble [...] Unavailable YOMAIRA, DR CHAD Lawson Consulting Unavailable APTEL, KATINA Consulting Unavailable LUE, ORQUIDEA M Consulting Unavailable DON, DR CERVANTES Primary Care Unavailable LUE, ORQUIDEA M Consulting Unavailable LUE, ORQUIDEA M Attending Unavailable LUE, ORQUIDEA M Admitting Unavailable SAM, LENNOX Consulting Unavailable LUE, ORQUIDEA M Admitting Unavailable LUE, ORQUIDEA M Consulting Unavailable DR HELEN HEATH Primary Care Unavailable LUE, ORQUIDEA M Attending Unavailable SOLO, GAIL Consulting Unavailable GEMBUS, LENNOX Consulting Unavailable DR HELEN HEATH Primary Care Unavailable DC, GINNY Consulting Unavailable DC, GINNY Attending Unavailable DC, GINNY Admitting Unavailable MD Brook Huddleston Attending Provider [phone] Unavailable Primary Care Provider UnavailHelen Lee MD Chris Primary Care Provider MD Helen Heath Primary Care Provider [phone] MD Helen Heath Attending Provider MD Orquidea Cortez Attending Provider MD Price Crain Attending Provider MD Brook Huddleston Attending Provider MD Helen Heath Primary Care Provider MD Helen Heath Attending Provider [phone] MD Brook Huddleston Attending Provider [phone] MD Orquidea Cortez Attending Provider MD Helen Heath Primary Care Provider MD Helen Heath Primary Care Provider [phone] MD Orquidea Cortez Attending Provider [phone] MD Price Crain Attending Provider [phone] MD Brook Huddleston Attending Provider Unavailable Primary Care Provider Unavailabl e MD Helen Heath Primary Care Provider MD Orquidea Cortez Attending Provider MD Brook Huddleston Attending Provider [phone] MD Helen Heath Primary Care Provider MD Price Crain Attending Provider MD Brook Huddleston Attending Provider [phone] MD Helen Heath Attending Provider Orquidea Cortez Attending Unavailable Makayla Damian Attending Unavailable Makayla Damian Admitting Unavailable MD Brook Huddleston Attending Provider [phone] MD Ramesh Seals Emergency Provider DO Clarence Miller Admit Provider DO Clarence Miller Attending Provider MD Price Crain Other Provider MD Delmar Wilburn Other Provider MD Helen Heath Primary Care Provider Orquidea Cortez Attending Unavailable Orquidea Cortez Attending Unavailable Santi SCHWARTZ Attending Unavailable Orquidea Cortez Attending Unavailable Santi SCHWARTZ Admitting Unavailable Santi SCHWARTZ Attending Unavailable Orquidea Cortez Attending Unavailable Orquidea Cortez Admitting Unavailable Orquidea Cortez Attending Unavailable Orquidea Cortez MChay Admitting Unavailable Lue, Orquidea M. Attending Unavailable [...] Attending Provider MD Brook Huddleston Attending Provider Orzech, Makayla X Attending Unavailable Orzech, Makayla X Admitting Unavailable Orzech, Makayla X Attending Unavailable MD Helen Heath Primary Care Provider [phone] MD Orquidea Cortez Attending Provider MD Brook Huddleston Attending Provider KENNETH Smith Emergency Provider MD Mayda Matthews Admit Provider [phone] MD Mayda Matthews Attending Provider MD Domonique Rahman Other Provider MD Orquidea Cortez Other Provider Orquidea Cortez Attending Unavailable Lue, Orquidea M. Attending Unavailable Orzech, Makayla X Attending Unavailable Orzech, Makayla X Attending Unavailable Orzech, Makayla X Admitting Unavailable Orzech, Makayla X Attending Unavailable Delmar Wilburn Referring Unavailable Delmar Wilburn Attending Unavailable Orquidea Cortez Attending Unavailable MD Domonique Rahman Attending Provider Helen Heath MD Primary Care Provider Orquidea Cortez MD Attending Provider Dong Smith PA-C Emergency Provider Byron RICKS, Mayda Marrero Admit Provider Mayda Matthews MD Attending Provider [phone] Domonique Rahman MD Other Provider Orquidea Cortez MD Other Provider Josiah RICKS, Domonique Attending Provider [phone] Price Crain MD Attending Provider [phone] Brook Huddleston MD Attending Provider FRANKLYN LAU Referring Unavailable ZENZ, YONATHAN Referring Unavailable FAWWAD, PHELAN Referring Unavailable STEW, CRIS Admitting Unavailable ALI, DEAL FLORI Attending Unavailable RATNAM, MARVIN Referring Unavailable EKWENNA, OBI Referring Unavailable Orzech, Makayla X Attending Unavailable Orzech, Makayla X Attending Unavailable Orzech, Makayla X Attending Unavailable Orzech, Makayla X Admitting Unavailable Orquidea Cortez MChay Attending Unavailable Orquidea Cortez MChay Referring Unavailable Orzech, Makayla X Attending Unavailable Orquidea Cortez MChay Attending Unavailable KENNETH HELTON Attending Unavailab le Orquidea Cortez Attending Unavailable Orzech, Makayla X Attending Unavailable Orquidea Cortez MChay Attending Unavailable Orzech, Makayla X Attending Unavailable Orquidea Cortez MChay Attending Unavailable Orzech, Makayla X Attending Unavailable Orzech, Makayla X Attending Unavailable Helen Heath MD Primary Care Provider [phone] Price Crain MD Attending Provider [phone] Brook Huddleston MD Attending Provider Brook Huddleston MD Attending Provider Helen Heath MD Primary Care Provider Price Crain MD Attending Provider [phone] Brook Huddleston MD Attending Provider [phone] Orquidea Cortez MD Attending Provider [phone] Brook Huddleston MD Attending Provider [phone] Helen Heath MD Attending Provider [phone] Orzech Makayla X Attending Unavailable Orzech, Makayla X Attending Unavailable Orzech, Makayla X Admitting Unavailable Lue, Orquidea MChay Attending Unavailable Santi SCHWARTZ Attending Unavailable Orzech, Makayla X Admitting Unavailable Orzech, Makayla X Attending Unavailable Orquidea Cortez Attending Unavailable Shadia, Pratima Attending Unavailable Shadia, Pratima Attending Unavailable Brook Huddleston MD Attending Provider Helen Heath MD Primary Care Provider [phone] Price Crain MD Attending Provider ShadiaPratima griffin Attending Unavailable Shadia, Pratima Admitting Unavailable Shadia, Pratima Attending Unavailable Helen Heath MD Primary Care Provider Helen Heath MD Attending Provider Orquidea Cortez MD Attending Provider Price Crain MD Attending Provider [phone] Brook Huddleston MD Attending Provider Shadia Pratima Attending Unavailable Shadia, Pratima Attending Unavailable Shadia, Pratima Attending Unavailable Shadia, Pratima Admitting Unavailable Helen Heath MD Primary Care Provider Shadia, Pratima Admitting Unavailable Shadia, Pratima Attending Unavailable Lue, Orquidea M. Attending Unavailable Shadia, Pratima Attending Unavailable Shadia, Pratima Attending Unavailable Lue, Orquidea M. Referring Unavailable Lue, Orquidea M. Admitting Unavailable Lue, Orquidea M. Attending Unavailable Lue, Orquidea M. Referring Unavailable Lue, Orquidea M. Admitting Unavailable Lue, Orquidea M. Attending Unavailable Lue, Orquidea M. Admitting Unavailable Lue, Orquidea M. Attending Unavailable Lue, Orquidea M. Referring Unavailable TEAGAN COTTON Referring Unavailable HELEN HEATH POST Primary Care Unavailwilian Heath MD, Helen Primary Care Provider [phone] Brook Huddleston MD Attending Provider [phone] Carito Martell PA-C Attending Provider Orquidea Cortez MD Other Provider PROVIDER, UNKNOWN Admitting Unavailable PROVIDER, UNKNOWN Attending Unavailable HELEN HEATH POST Primary Care Unavailabl e LEIDY, DAX Admitting Unavailable LEIDY, DAX Attending Unavailable HELEN HEATH POST Primary Care Unavailabl e Heath, Helen Primary Care Unavailable Heath, Helen Attending Unavailable Heath, Helen Admitting Unavailable Lue, Orquidea M Attending Unavailable Lue, Orquidea M Admitting Unavailable Heath, Helen Primary Care Unavailable Lue, Orquidea M Admitting Unavailable Lue, Orquidea M Attending Unavailable Lue, Orquidea M Attending Unavailable Lue, Orquidea M Admitting Unavailable Heath, Helen Primary Care Unavailable Lue, Orquidea M Attending Unavailable Lue, Orquidea M Admitting Unavailable Heath, Helen Primary Care Unavailable Brook Huddleston Admitting Unavailable Brook Huddleston Attending Unavailable Bakhous, Aziz Attending Unavailable Heath, Helen Primary Care Unavailable Bakhous, Aziz Admitting Unavailable Taweel, Helwa N Admitting Unavailable Taweel, Helwa N Attending Unavailable Heath, Helen Primary Care Unavailable Lue, Orquidea M Consulting Unavailable Josiah, Domonique Admitting Unavailable Josiah, Domonique Attending Unavailable Heath, Helen Primary Care Unavailable Bakhous, Aziz Admitting Unavailable Bakhous, Aziz Attending Unavailable Heath, Helen Primary Care Unavailable Bakhous, Aziz Attending Unavailable Heath, Helen Primary Care Unavailable Bakhous, Aziz Admitting Unavailable Daromar, Obaydah M Admitting Unavailable Daromar, Obaydah M Attending Unavailable Josiah, Domonique Consulting Unavailable Heath, Helen Primary Care Unavailable Lue, Orquidea M Consulting Unavailable Lue, Orquidea M. Attending Unavailable Lue, Orquidea M. Attending Unavailable Pratima Reno Attending Unavailable Lue, Orquidea M. Attending Unavailable Allergies Allergy Classification Reported Allergen(s) Allergy Type Date of Onset Reaction(s) Facility Anti-Epileptic Agents (2 sources) gabapentin; Translations: [gabapentin] Drug Allergy 2 Unknown, Rash [facility] Marcela mirabegron (2 sources) mirabegron; Translations: [mirabegron] Drug Allergy Multiple open mouth wounds (disorder) [facility] (20 sources) gabapentin; Translations: [gabapentin] Drug Allergy 2 rash, Unknown [facility] (20 sources) mirabegron; Translations: [MIRABEGRON] Drug Allergy 2 Diarrhea, GI Upset [facility] (20 sources) mirabegron; Translations: [mirabegron] Drug Allergy Multiple open mouth wounds (disorder) [facility] (20 sources) Lisinopril; Translations: [Lisinopril] Drug Allergy 4 DRY COUGH, Unknown, Cough [facility] (13 sources) No Known Medication Allergies; Translations: [No Known Medication Allergies] Propensity to adverse reactions (disorder) [facility] (1 source) ALLERGIES NOT ON FILE; Translations: [ALLERGIES NOT ON FILE] Propensity to adverse reactions (disorder) [facility] Repository (1 source) Latex Allergy to substance Eruption of skin (disorder) [facility] Medications Current Medications Medication Drug Class(es) Dates Sig (Normalized) Sig (Original) acetaminophen 500 mg oral tablet (20 sources) Start: 03-03-2025 take 1 tablet by mouth every four hours as needed for pain acetaminophen 500 mg Tab 500 mg = 1 tab(s), Oral, q4hr, PRN for pain Start Date: 03/03/25 Status: Ordered Repeat number: 1 Start: 08-03-[address] [facility] every six hours as needed Start: 01-20-2024 [...] tablet (5 sources) Opioid Agonist Start: 04-18-2022 [place] 325 mg-5 mg oral tablet 1 tab(s), Oral, As Directed, 1 tab(s), Refill(s) 0, Take 1 hour prior to procedure, [facility], 180, cm, 04/18/22 13:52:00 EDT, Height/Length Dosing, 110, kg, 04/18/22 13:52:00 EDT, Weight Dosing Start Date: 04/18/22 Status: Ordered acetaminophen 325 mg / traMADol hydrochloride 37.5 mg oral tablet (5 sources) Opioid Agonist Start: 04-18-2022 take 1 tablet by mouth every six hours Ultracet 325 mg-37.5 mg Tab 1 tab(s), Oral, q6hr severe pain, 12 tab(s), Refill(s) 0, [facility], 180, cm, 04/18/22 13:52:00 EDT, Height/Length [...] Date: 11/13/20 Status: Ordered Repeat number: 1 Comment on above: Take by mouth. cephalexin 500 mg oral capsule (20 sources) Cephalosporin Antibacterial Start: 04-19-20 End: 04-26-20 take 1 capsule by mouth twice daily cephalexin 500 mg Cap 500 mg = 1 cap(s), Oral, BID, X 7 day(s), # 14 cap(s), Refills(s) 0, Pharmacy: [facility], 171, cm, 01/28/24 10:39:00 EDT, Height/Length [...] Comment on above: Take [address] [facility] three times daily for 7 days. cholecalciferol 0.05 mg oral capsule (20 sources) Vitamin D Start: End: 4 Cholecalciferol, Vitamin D3, (D3-2000) 50 mcg (2,000 unit) cap Take by mouth. 11/13/2020 Active Comment on above: Take by mouth. ciprofloxacin 500 mg oral tablet (11 sources) Quinolone Antimicrobial Start: 5 take 1 tablet by mouth every twelve hours Cipro 500 mg Tab 500 mg = 1 tab(s), Oral, q12hr, # 14 tab(s), Refills(s) 0, Pharmacy: [facility], 173, cm, 04/25/25 14:05:00 EDT, Height/Length Dosing, 95.2, kg, 04/25/25 14:05:00 EDT, Weight Dosing Start Date: 04/25/25 Status: Ordered Quantity: 14.0 Unit: tab(s) Repeat number: 1 Start: 11-06-2024 End: 11-09-2024 take 1 tablet by mouth every twelve hours Cipro 500 mg Tab 500 mg = 1 tab(s), Oral, q12hr, X 3 day(s), # 6 tab(s), Refills(s) 0, Pharmacy: [facility], 171, cm, 08/31/24 11:19:00 EST, Height/Length Dosing, 94, kg, 08/31/24 11:19:00 EST, Weight Dosing Start Date: 11/06/24 Stop Date: 11/09/24 Status: Ordered Quantity: 6.0 Unit: tab(s) Repeat number: 1 Start: 09-08-2024 End: 09-13-2024 take 1 tablet by mouth every twelve hours Cipro 500 mg Tab 500 mg = 1 tab(s), Oral, q12hr, X 5 day(s), # 10 tab(s), Refills(s) 0, Pharmacy: [facility], 171, cm, 08/31/24 11:19:00 EST, Height/Length Dosing, 94, kg, 08/31/24 11:19:00 EST, Weight Dosing Start Date: 09/08/24 Stop Date: 09/13/24 Status: Ordered Start: 08-16-2024 End: 08-21-2024 take 1 tablet by mouth every twelve hours Cipro 500 mg Tab 500 mg = 1 tab(s), Oral, q12hr, X 5 day(s), # 10 tab(s), Refills(s) 0, Pharmacy: [facility], 171, cm, 08/09/24 11:31:00 EST, Height/Length Dosing, 94, kg, 12/24/24 11:31:00 EST, Weight Dosing Start Date: 08/16/24 Stop Date: 08/21/24 Status: Ordered Start: 04-25-2022 take 1 tablet by [facility] every twelve hours Cipro 500 mg Tab 500 mg = 1 tab(s), Oral, q12hr, Start taking day prior to scheduled UroLift, # 6 tab(s), Refills(s) 0, Pharmacy: [facility], 180, cm, 04/18/22 13:52:00 EDT, Height/Length Dosing, 110, kg, 04/18/22 13:52:00 EDT, Weight Dosing Start Date: 04/25/22 Status: Ordered Start: 04-18-2022 End: 04-21-2022 take 1 tablet by mouth twice daily Cipro 500 mg Tab 500 mg = 1 tab(s), Oral, BID, Start day before, X 3 day(s), # 6 tab(s), Refills(s) 0, Pharmacy: [facility], 180, cm, 04/18/22 13:52:00 EDT, Height/Length Dosing, 110, kg, 04/18/22 13:52:00 EDT, Weight Dosing Start Date: 04/18/22 Stop Date: 04/21/22 Status: Ordered Cranberry preparation (19 sources) Non-Standardized Food Allergenic Extract, Non-Standardized Plant Allergenic Extract Start: 11-17-2024 Cranberry Oral, Daily Start Date: 11/17/24 Status: Ordered Repeat number: 1 Start: 11-17-2024 Cranberry Star t Date: 11/17/24 Status: Ordered Repeat number: 1 Start: 10-04-2024 take 1 capsule by mo [facility] twice daily at mealtime Start: 10-04-2024 Start: 10-04-2024 take 1 capsule by mo ut twice daily at mealtime Cranberry 500 mg capsule Active 500 MG PO Twice daily October 04, 2024 1:00am administer with meals Start: 10-04-2024 take 1 capsule by mo ut twice daily at mealtime Cranberry 500 mg capsule Active 500 MG PO Twice daily October 04, 2024 12:00am administer with meals D-mannose (10 sources) Start: 11-17-2024 D-mannose D-ma nnose Start [...] procedure, # 1 tab(s), Refills(s) 0, Pharmacy: [facility], 180, cm, 04/18/22 13:52:00 EDT, Height/Length [...] 1 Start: 10-26-2023 take 1 capsule by mo uth once daily in the evening Start: 03-10-2020 [...] oral tablet (3 sources) Azole Antifungal Start: End: take 1 tablet by mouth once daily fluconazole 50 mg oral tablet 50 mg = 1 tab(s), Oral, Daily, X 5 day(s), # 5 tab(s), Refills(s) 0, Pharmacy: [facility], 171, cm, 08/31/24 11:19:00 EST, Height/Length Dosing, 94, kg, 08/31/24 11:19:00 EST, Weight Dosing Start Date: 11/08/24 Stop Date: 11/13/24 Status: Ordered Quantity: 5.0 Unit: tab(s) Repeat number: 1 Start: 04-08-2022 End: 04-22-2022 take 1 tablet by mouth once daily fluconazole 200 mg Tab 200 mg = 1 tab(s), Oral, Daily, X 14 day(s), # 14 tab(s), Refills(s) 0, Pharmacy: [facility], 180, cm, 04/01/22 9:29:00 EDT, Height/Length [...] Start: 10-26-2023 take 1 capsule by mo [facility] once daily Iron Bis Glycinat-Vit C-Fa-B12 (Gentle Iron) 28 mg iron-60mg -400 mcg-8 mcg capsule Active CAP PO daily October 26, 2023 12:00am lactobacillus acidophilus 10 [id number] unt oral capsule (20 sources) Start: 06-02-2024 End: 08-03-2024 Start: 06-02-2024 End: 08-03-2024 take 10 capsules by mouth once daily Comment on above: probiotic as directe d Active levoFLOXacin 500 mg oral tablet (1 source) Quinolone Antimicrobial Start: End: take 1 tablet by mouth every twenty-four hours Levaquin 500 mg Tab 500 mg = 1 tab(s), Oral, q24hr, X 7 day(s), # 7 tab(s), Refills(s) 0, Pharmacy: [facility], 171, cm, 05/15/23 15:22:00 EDT, Height/Length [...] Active Start: 01-14-2023 take 1 tablet by [facility] every twenty-four hours Lisinopril 10 MG 1 [...] day(s), # 30 tab(s), Refills(s) 6, Pharmacy: [facility] #[facility], 180, cm, 06/04/22 11:02:00 EDT, Height/Length [...] Status: Ordered semaglutide 3 mg oral tablet (3 sources) Start: 03-27-2025 Rybelsus 3 mg oral tablet Refills(s) 0 Start Date: 03/27/25 Status: Ordered Repeat number: 1 sulfamethoxazole 800 mg / trimethoprim 160 mg oral tablet (20 sources) Dihydrofolate Reductase Inhibitor Antibacterial, Sulfonamide Antimicrobial Start: 12-11-2023 End: 12-21-2023 Bactrim D.S. 800 mg-160 mg Tab 1 tab(s), Oral, BID for 10 day(s), 20 tab(s), Refill(s) 0, [facility], 171, cm, 07/22/23 9:22:00 EST, Height/Length [...] End: 08-20-2021 take 1 tablet by [facility] once daily Bactrim DS 800-160 MG 1 tablet Orally MO , THURSDAY, THURSDAY ONCE A DAY Active trospium chloride 20 mg oral tablet (1 source) Cholinergic Muscarinic Antagonist Start: 09-18-2022 take 1 tablet by mouth at bedtime trospium 20 mg oral tablet 20 mg = 1 tab(s), Oral, Bedtime, # 30 tab(s), Refills(s) 11, Pharmacy: [facility], 180, cm, 09/18/22 9:44:00 EST, Height/Length [...] mg Tablet Discontinued 5 MG PO Daily March 10, 2020 12:00am April 09, 2020 [...] capsule Discontinued 300 MG PO Twice daily 07 22January 22, 2024 12:00am 2024 12:54pm clobetasol propionate [...] day(s), # 6 cap(s), Refills(s) 0, Pharmacy: [facility], 171, cm, 08/31/24 11:19:00 EST, Height/Length Dosing, 94, kg, 08/31/24 11:19:00 EST, Weight Dosing Start Date: 11/08/24 Stop Date: 11/11/24 Status: Ordered Quantity: 6.0 Unit: cap(s) Repeat number: 1 Start: 01-08-2024 take 1 capsule by mo [facility] twice daily doxycycline monohydrate 100 mg oral capsule 100 mg = 1 cap(s), Oral, BID, # 14 cap(s), Refills(s) 0, called to pharmacy (Rx) Start Date: 01/08/24 Status: Ordered Start: 10-09-2022 End: 10-16-2022 take 1 capsule by mouth twice daily doxycycline hyclate 100 mg Cap 100 mg = 1 cap(s), Oral, BID, X 7 day(s), # 14 cap(s), Refills(s) 0, Pharmacy: [facility], 180, cm, 10/09/22 11:06:00 EST, Height/Length Dosing, 95.5, kg, 10/09/22 11:06:00 EST, Weight Dosing Start Date: 10/09/22 Stop Date: 10/16/22 Status: Ordered Start: 12-10-2021 take 1 mg by mouth twice daily doxycycline hyclate 100 mg Cap mg cap(s), Oral, BID, Refills(s) 0 Start Date: 12/10/21 Status: Ordered take 1 tablet by [facility] twice daily Doxycycline Hyclate 100 MG 1 [...] D2) 1,250 mcg (50,000 unit) Capsule Discontinued [id number] UNIT PO Mo@0900 8 60 May 07, 2020 9:01am July 02, 2020 10:01am Start: 03-10-2020 End: 07-02-2020 Start: 03-10-2020 End: 07-02-2020 take 99955 [IU] by mouth once Ergocalciferol (Vitamin D2) Discontinued [id number] UNIT PO Mo@0900 8 60 May 07, 2020 9:01am July 02, 2020 10:01am famotidine 20 mg oral tablet (20 sources) Histamine-2 Receptor Antagonist Start: 08-20-2021 End: 08-20-2021 Famotidine Discontinued MG TABLET August 20, 2021 1:00am August 20, 2021 7:16pm Start: 03-10-2020 End: 10-01-2023 take 1 tablet by mouth once daily at bedtime famotidine 20 mg Tab 20 mg = 1 tab(s), Oral, Once a day (at bedtime), Refills(s) 0 Start Date: 11/13/20 Status: Ordered Repeat number: 1 Start: 03-10-2020 End: 10-01-2023 Comment on above: [...] insulin SubCutaneous, Daily, Refills(s) 0 Start Date: 3/30/21 Status: Ordered Start: 04-27-2020 End: 10-04-2024 Start: [...] 2020 12:00am October 15, 2020 12:18pm on Start: 05-07-2020 End: 10-15-2020 3 ml insulin [...] scale instructions HumaLOG KwikPen 100 UNIT/ML ICR 01-24-12 ac according to meal size plus ISS [...] TAKE 1 CAPSULE EVERY OTHER DAY.ADULT MALE AUTH#[id number] Start: 06-27-2022 End: 01-22-2023 Lenalidomide (Revlimid) 5 mg Capsule Discontinued 0 .ROUTE .COMPLEX June 27, 2022 4:37pm January 22, 2023 2:26pm TAKE 1 CAPSULE EVERY OTHER DAY.ADULT MALE AUTH#[id number] Start: 06-27-2022 Lenalidomide ( Revlimid) 5 mg Capsule Active 0 .ROUTE .COMPLEX June 27, 2022 4:37pm TAKE 1 CAPSULE EVERY OTHER DAY.ADULT MALE AUTH#[id number] Start: 06-27-2022 Lenalidomide ( Revlimid) 5 mg Capsule Active 0 .ROUTE .COMPLEX June 27, 2022 3:37pm TAKE 1 CAPSULE EVERY OTHER DAY.ADULT MALE AUTH#[id number] Start: 06-02-2022 End: 06-27-2022 Lenalidomide (Revlimid) 5 mg Capsule Discontinued 0 .ROUTE .COMPLEX June 02, 2022 12:16pm June 27, 2022 4:38pm TAKE 1 CAPSULE EVERY OTHER DAY.ADULT MALE AUTH#[id number] Start: 06-02-2022 End: 06-27-2022 Lenalidomide (Revlimid) 5 mg Capsule Discontinued 0 .ROUTE .COMPLEX June 02, 2022 11:16am June 27, 2022 3:38pm TAKE 1 CAPSULE EVERY OTHER DAY.ADULT MALE AUTH#[id number] Start: 06-02-2022 Lenalidomide ( Revlimid) 5 mg Capsule Active 0 .ROUTE .COMPLEX June 02, 2022 11:16am TAKE 1 CAPSULE EVERY OTHER DAY.ADULT MALE AUTH#[id number] Start: 05-02-2022 End: 06-02-2022 Lenalidomide (Revlimid) 5 mg Capsule Discontinued 0 .ROUTE .COMPLEX May 02, 2022 10:17am June 02, 2022 12:17pm TAKE 1 CAPSULE EVERY OTHER DAY.ADULT MALE AUTH#[id number] Start: 05-02-2022 End: 06-02-2022 Lenalidomide (Revlimid) 5 mg Capsule Discontinued 0 .ROUTE .COMPLEX May 02, 2022 9:17am June 02, 2022 11:17am TAKE 1 CAPSULE EVERY OTHER DAY.ADULT MALE AUTH#[id number] Start: 05-02-2022 Lenalidomide ( Revlimid) 5 mg Capsule Active 0 .ROUTE .COMPLEX May 02, 2022 10:17am TAKE 1 CAPSULE EVERY OTHER DAY.ADULT MALE AUTH#[id number] Start: 03-05-2022 End: 01-22-2023 Lenalidomide (Revlimid) 5 mg Capsule Discontinued 0 .ROUTE .COMPLEX June 27, 2022 4:37pm January 22, 2023 2:26pm TAKE 1 CAPSULE EVERY OTHER DAY.ADULT MALE AUTH#[id number] Start: 03-05-2022 End: 01-22-2023 Start: 03-05-2022 End: 05-02-2022 Lenalidomide (Revlimid) 5 mg Capsule Discontinued 0 .ROUTE .COMPLEX March 04, 2022 11:00pm May 02, 2022 9:17am TAKE 1 CAPSULE EVERY OTHER DAY.ADULT MALE AUTH#[id number] Start: 03-05-2022 End: 05-02-2022 Lenalidomide (Revlimid) 5 mg Capsule Discontinued 0 .ROUTE .COMPLEX March 05, 2022 12:00am May 02, 2022 10:17am TAKE 1 CAPSULE EVERY OTHER DAY.ADULT MALE AUTH#[id number] Start: 03-05-2022 Lenalidomide ( Revlimid) 5 mg Capsule Active 0 .ROUTE .COMPLEX March 05, 2022 12:00am TAKE 1 CAPSULE EVERY OTHER DAY.ADULT MALE AUTH#[id number] Start: 10-18-2020 End: 02-07-2022 take 1 capsule by mouth once daily Lenalidomide (Revlimid) 5 mg Capsule Discontinued 5 MG PO Daily January 07, 2022 12:02pm February 07, 2022 8:33am swallow whole with glass of water; do not open, crush, chew , break, or dissolve.ADULT MALE AUTH#[id number] Start: 10-18-2020 End: 11-01-2021 Start: 04-12-2020 End: [...] after, # 30 cap(s), Refills(s) 1, Pharmacy: [facility], 171, cm, 07/22/23 9:22:00 EST, Height/Length [...] tablet by lakeshia th once daily oxybutynin 10 mg ER Tab 10 mg = 1 tab(s), Oral, Daily, # 30 tab(s), Refills(s) 0, other reason (Rx) Start Date: 05/15/23 Status: Ordered Quantity: 30.0 Unit: tab(s) Repeat number: 1 Start: 12-29-2022 oxybutynin ER (DITROPAN XL) 10 mg 24 hr tablet 12/29/2022 Active Start: 08-28-2022 End: 08-23-2023 take 1 tablet by mouth twice daily oxybutynin 5 mg ER Tab 5 mg = 1 tab(s), Oral, BID, # 180 tab(s), Refills(s) 3, [facility] 180, cm, 10/16/22 10:34:00 [...] Daily, # 30 tab(s), Refills(s) 3, Pharmacy: [facility], 180, cm, 07/04/22 13:18:00 EST, Height/Length Dosing, 95.5, kg, 07/04/22 13:18:00 EST, Weight Dosing Start Date: 07/04/22 Status: Ordered Start: 05-05-2022 take 1 tablet by lakeshia th three times daily as needed for muscle spasms oxybutynin 5 mg Tab 5 mg = 1 tab(s), Oral, TID, PRN for urinary discomfort, Bladder spasms, # 90 tab(s), Refills(s) 0, Pharmacy: [facility], 180, cm, 05/01/22 14:12:00 EDT, Height/Length [...] 2020 12:00am October 15, 2020 11:40am [facility] nursing home 8.6 mg oral tablet (20 sources) Start: [...] Daily, # 30 cap(s), Refills(s) 5, Pharmacy: [facility], 180, cm, 07/04/22 13:18:00 EST, Height/Length [...] 11:13am Start: 01-28-2022 take 1 capsule by mo [facility] once daily at bedtime terazosin 10 mg Cap 10 mg = 1 cap(s), Oral, Once a day (at bedtime), # 30 cap(s), Refills(s) 1, Pharmacy: [facility] #[facility], 180, cm, 01/28/22 8:49:00 EDT, Height/Length [...] [Chronic kidney disease, stage 3 (moderate)] Onset: 05-08-20 22 03-14-2020 Chronic Chronic kidney disease (6 sources) Chronic [...] 09-04-1903-23-2019 Chronic Disorders of teeth and jaw (20 [...] 12-16-19 Chronic Other aftercare (1 source) Other alf (current) drug therapy; Translations: [OTH [facility] CURRENT DRUG THERAPY] Onset: 12-16-19 Episodic Other aftercare (3 sources) shelter (current) use of insulin; Translations: [[facility] CURRENT USE OF INSULIN] Onset: 12-16-19 Episodic Other aftercare (1 source) fiber optic assembler (current) use of aspirin; Translations: [NETWORK MANAGEMENT SPECIALIST CURRENT USE OF ASPIRIN] Onset: 12-16-19 Episodic Other aftercare (1 source) fiber optic assembler (current) use of oral hypoglycemic drugs; Translations: [NETWORK MANAGEMENT SPECIALIST USE ORAL HYPOGLYCEMIC DX] Onset: 12-16-19 Episodic [...] diseases of bladder and urethra (20 sources) Neurogenic dysfunction of the urinary bladder; [...] bladder, unspecified; Translations: [Low bladder compliance] Onset: 06-02-2006-05-2024 Chronic Other diseases of kidney and ureters (20 sources) 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; Translations: [Other specified disorders of kidney and ureter] 03-14-2020 Chronic Other diseases of kidney and ureters (20 sources) Other specified disorders of kidney and ureter; Translations: [Other specified disorders of kidney and ureter] Onset: 06-23-2004-16-2022 Chronic Other diseases of kidney and ureters [...] ureter without hydronephrosis] Episodic Other gastrointestinal disorders (20 sources) Occult [...] organs] 02-19-2023 Episodic Other infections; including parasitic (3 sources) History of sepsis 03-03-2025 Episodic Other [...] status] Onset: 07-03-20 Chronic Residual codes; unclassified (17 sources) Family history of cancer; Translations: [Family [...] (SUSP) EXPOS COVID-19] Onset: 08-27-19 23 Unclassified (3 sources) Autogenerated Problem Onset: 03-26-2003-26-2025 Urinary tract infections (20 sources) Acute urinary tract infection; Translations: [Urinary tract infection, site not specified] Onset: 08-04-20 22 08-20-2021 Episodic Past or Other Problems Problem Classification [...] Onset: 08-04-2022 Episodic Other aftercare (1 source) shelter (current) use of anticoagulants; Translations: [[facility] CURRNT USE ANTICOAGULANTS] Onset: 01-24-2022 Episodic Other diseases of bladder and urethra (1 source) Unspecified urethral stricture, male, meatal; Translations: [UNSP URETHRAL STRICTURE MALE MEATAL] Onset: 09-04-2022 Episodic Other diseases of kidney and ureters (16 sources) Unspecified hydronephrosis; Translations: [Hydronephrosis] Onset: 12-10-2022 Episodic Other diseases of kidney and ureters (3 sources) Crossing vessel and stricture of ureter without hydronephrosis; Translations: [Ureteral stricture] Onset: 12-14-2024 Episodic Screening and history of mental health and substance abuse codes (1 source) Personal history of nicotine dependence; Translations: [PERSONAL HISTORY OF NICOTINE DEPEND] Onset: 09-04-2022 Episodic Results Test Name Value Interpretation Reference Range Facility Ambulatory Visit Summaryon 0 04-25-2025 Ambulatory Visit Summary Ambulatory Visit Summary PATSY CUNNINGHAM :1945 Visit Date:04/25/2025 Ambulatory Visit Instructions Your Diagnosis Ureteral stricture Recurrent UTI Prostate cancer Noncompliant bladder BPH with urinary obstruction Incomplete bladder emptying Hydroureteronephrosis Kidney stones Family history of prostate cancer in father Your Care Team Attending Physician - Diego RICKS, Orquidea Taylor Primary Care Physician - HELEN HEATH MD This Is Your Medications List ciprofloxacin (Cipro 500 mg Tab) nitrofurantoin (Macrobid 100 mg [...] multivitamin with iron (Gentle Iron oral capsule) semaglutide (Rybelsus 3 mg oral tablet) Procedures [...] heel spur, Stem cell transplant. Discharge Vitals Blood Pressure 140/92 Height 173 cm Height 68 in Weight 95.2 kg Weight 209.88 lb BMI 31.81 What to do next You Need to Schedule the Following Appointments Follow Up with Diego RICKS, Orquidea Taylor, URKerry, URO When: Where: Medications What How Much When Instructions New ciprofloxacin (Cipro 500 mg Tab) 1 Tablets By Mouth Every 12 hours Pickup at [facility] Unchanged nitrofurantoin (Macrobid 100 mg Cap) 1 Capsules By Mouth 2 times a day take 1 cap morning of cath change and 12hrs after Unchanged oxybutynin (oxybutynin 10 mg ER Tab) 1 Tablets By Mouth Every day Unchanged acetaminophen (acetaminophen 500 mg Tab) 1 [...] Contact prescribing physician if questions or concerns Pharmacy Information Discou (more content not included)... Normal [facility] Urology Office/Clinic Noteon 04-25-2025 Urology Office/Clinic Note Urology Office/Clinic Note Chief Complaint 3-4wk follow up HPI Staff 80 year old male here for 3-4 wk F/U Previous DX: ureteral stricture, recurrent UTI, prostate cancer, noncompliant bladder, BPH w/LUTS, incomplete bladder emptying, hydronephrosis, kidney stones and family H/O prostate cancer BMP done 04/05/25 patient thinks he has a uti states for the last few week she has has pain, denies any gross hematuria. Denies any difficulties with Neph tubes- wants to be shown how to flush them. History of Present Illness Tests reviewed: reviewed UA, BMP and external records: [facility] IR op note. I have reviewed the previous [...] See HPI. Physical Exam Vitals & Measurements BP: 140/92 HT: 173 cm HT: 68 in WT: 95.2 kg WT: 209.88 lb BMI: 31.81 General Appearance: alert, no distress, well nourished, well developed male. Assessment/Plan 80 yo M with complex urologic [...] interventions. THERESA N/A, pt inactive. Follows with pj, Dr. Crain. Pt here with his today. 1. Ureteral stricture (N13.5: Crossing vessel and stricture of ureter without hydronephrosis) 10/14/22 - Crea 1.54. eGFR 44. (bond in place) Cr up to 2 without bond 0 12/08/22 - Cr 1.78. eGFR 37. BUN 30. K 5.0. (with bond) 12/17/22 - Cr 1.84. eGFR 37. BUN 22. K 5.3. (with stent) 04/23/23 - Cr 1.80. eGFR 38. BUN 24. K 4.6 (with stent and SPT) 01/21/24 - Cr 2.83. BUN 40. K 4.3. (with stent and SPT) at [facility] due to RINA and UTI 01/22/24 - Cr 2.58. BUN 31. K 4.1. (with stent and SPT) at [facility] due to RINA and UTI 06/08/24 - BUN 36, Cre 2.30, GFR 28 (with bilateral stents and SPT) 07/20/24 - Cre 6.20 08/01/24 - Cre 2.43 BMP 11/11/24 - Cr 3.58, eGFR 16 BMP 12/14/24 - Cr 2.17, eGFR 30 CMP 01/30/25 - Cr 2.07, eGFR 31.977 BMP 04/05/25 - Cr 2.23, eGFR 29 CT AP wo con 10/02/22 - Mild-mod BL hydronephrosis and hydroureter without obstructing stone or mass. Non-obstructing calculi left kidney measuring 7 mm. Post Bond Renal US 10/14/22 neg for hydro. ANA 10/30/22 - Mild right pelvocaliectasis, neg for hydro. Pt refused bond/CIC at that time. Renal US 11/17/22 [facility] - R-sided hydronephrosis and proximal hydroureter. Findings have progressed since prior study. Cr 1.87/ eGFR 36.6 Cath placed 11/21/2022 ANA 12/01/22 - Right hydronephrosis, grossly similar to the prior study despite bond in place. S/p cysto/RG/ureteroscopy/sten t placement/RT ureteral dilation and stent placement 12/10/22. ANA 12/17/22 - Interval resolution of the right sided hydronephrosis since the prior US study. 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 urologist for right distal stricture, small [...] ESWL/SPT exchanged 06/10/23. Cont q4m ANA 01/20/24 [facility] - Bilateral mild pelvocaliectasis L>R. S/p cysto, R RPG, stent exchange, SP tube exchange, TP prostate bx, TRUS 06/01/24. Urology consult 06/03/24 due to moderate L hydroureteronephrosis with R stent and SPT S/p cysto, L RPG, stent placement 06/04/24. Admitted @ [facility] 07/20/24 on Cre 6.2 for renal cytosis, Cre level continue to elevate, pt was then transferred to [place]. BL stent exchange, SP tube exchange w/ Dr.Ahmad Lau at [email or web address] after transfer. 7x26 JJ-stent BL, Recommended neph tubes. 07/28/24 S/p cysto, JOSE RPG, JOSE stent exchange, SPT change 11/09/24. S/p cysto, BL RPG, BL (more content not included)... Normal [facility] Comment on above: Result Comment: Elec tronically Signed By: Orquidea Cortez MD\.br\Date and Time Signed: 04/25/25 16:37 EDT\.br\Electronically Co-Signed By: Aleah Starr\.br\Date and Time Co-Signed: 04/25/25 14:43 EDT\.br\Electronically Co-Signed By: Aleah Starr\.br\Date and Time Co-Signed: 04/25/25 14:45 EDT BRIEF OP NOTon 04-13-2025 BRIEF OP NOT HNO ID: [id number] Author: YAMILE GARCIA RT(R) Service: Radiology Author Type: Technologist Type: Brief Op Note Filed: 04/13/2025 12:30 Note Text: BRIEF OPERATIVE / PROCEDURE NOTE LOG ID: [id number] SURGERY/PROCEDURE DATE: 04/13/2025 INCISION/PROCEDURE START TIME: 12:01 PM INCISION CLOSE/PROCEDURE END TIME: 12:18 PM SURGEON(S)/PROCEDURALIST(S ) AND STEEL HANDLER(S): Surgeons and Role: * Adrián Petty MD - Primary * Yamile Garcia RRA Seismograph Chief - Secondary Preoperative Concerns /Risks: None SURGERY/PROCEDURE(S): [...] DATE: April 13, 2025 TIME: 12:27 PM [facility] 04-13-2025 [facility] Telephone (AVXRPR) -- PATSY CUNNINGHAM ([id number]) 1945 M Date Time Provider Department 04/13/25 STANFORD SALDIVAR [facility] During your visit today, we recorded the following information about you: Stanford Saldivar RN 04/13/2025 1:13 PM Signed Nephrostomy tube teaching information sent to pt My Chart Allergies As of Date: 04/13/2025 Noted Allergy Reaction MIRABEGRON 06/27/2022 6 - Diarrhea 8 - GI Upset GABAPENTIN 08/20/2021 2 - Rash Date Reviewed: 04/13/2025 Reviewed by: Stanford Saldivar, EVY - Fully Assessed Reason for Visit: Patient [...] Encounter Status:Closed by STANFORD SALDIVAR on 04/13/25 [facility] Telephone (AVXRPR) -- PATSY CUNNINGHAM ([id number]) 1945 M Date Time Provider Department 04/13/25 PIERO HUDDLESTON [facility] During your visit today, we recorded the [...] this exchange be done in the region? [place] / [place] ( [place] ) If the patient [...] Rash Date Reviewed: 04/13/2025 Reviewed by: Stanford Saldivar, RN - Fully Assessed Reason for Visit: IR Outpatient Tube Appointment Request [[id number]] Prescriptions as of 04/13/2025 - aspirin 81 [...] Encounter Status:Closed by ANA MARQUES on 04/13/25 [facility] IR EXCHANGE NEPH TUBE BILATo n 04-13-2025 IR EXCHANGE NEPH TUBE BILAT * * *Final Report* * * DATE OF EXAM: Apr 13 2025 12:24PM [facility] [id number] - IR EXCHANGE NEPH TUBE BILAT / PROCEDURE REASON: Hydronephrosis * * * * Physician Interpretation * * * * PROCEDURE: GENITOURINARY CATHETER EXCHANGE Procedural Personnel Attending physician(s): Adrián Petty MD Fellow physician(s): None Resident physician(s): None Advanced practice provider(s): None Medical Student(s): None Pre-procedure diagnosis: Bladder dysfunction Post-procedure diagnosis: Same Indication: Routine catheter exchange Additional clinical history: 80-year-old male with potential bladder dysfunction. Patient had bilateral nephrostomy placed earlier for diversion. Patient is here for routine catheter exchange. PROCEDURE SUMMARY - Target organ: Bilateral [place] kidneys - Antegrade nephrostogram(s) via the existing [...] with contrast injection. Pre-existing genitourinary catheter: 10 Mexican Carter-French catheter Genitourinary catheter(s) placed: 10 Mexican Carter-French catheter Findings: Flynn loop within the renal pelvis. External catheter securement: Non-absorbable suture Left genitourinary catheter exchange Local anesthesia was administered. Initial nephrostogram was performed. A wire was placed through the existing tube and it was removed. The new tube was advanced over the wire and position was confirmed with contrast injection. Pre-existing genitourinary catheter: 10 Mexican Carter-French catheter Genitourinary catheter(s) placed: 10 Mexican Carter-French catheter Findings: Flynn loop within the renal pelvis External catheter [...] and was tra (more content not included)... [facility] NURSING PROGon 04-13-2025 NURSING PROG HNO ID: [id number] Author: ZOHRA BALDWIN RN Service: Nursing Author Type: Registered Nurse Type: Nursing Progress Note Filed: 04/18/2025 18:11 Note Text: Completed post procedure phone call. pt is feeling well and has returned to baseline diet and activity. pt denies questions or concerns related to appointment and had no surgical site concerns. [facility] NURSING PROG HNO ID: [id number] Author: STANFORD SALDIVAR RN Service: Radiology Author Type: Registered Nurse Type: Nursing Progress Note Filed: 04/13/2025 13:14 Note Text: [facility] INTERVENT[facility] RADIOLOGY CONSULT NOTE [facility] April 13, 2025 Patsy Cunningham Tube Education [...] of a nephrostomy tube is available on YouTMediaSite. Please use this link: [email or web address] [email or web address] SIGNATURE: Stanford Saldivar RN PATIENT NAME: Patsy Cunningham DATE: April 13, 2025 TIME: 12:46 PM PAGER: [facility] NURSING PROG HNO ID: [id number] Author: VIVI GUTIERREZ RN Service: Nursing Author [...] (RECOMMENDATION): None Electronically Signed By: Vivi Gutierrez [facility] Basic Metabolic Panelon 03-18 GFR/1.73 sq M.predicted MDRD (S/P/Bld) [Vol rate/Area] 29.063 mL/min/{1.73_m2} Normal [facility] Comment on above: Performed By: #### B MP ####[address] Basophils [#/volume] in Bloo d by Automated countOrdered By: Brook Huddleston on 04-05-2025 Basophils (Bld) [#/Vol] 0.0 10*3/uL Normal 0.0-0.2 [facility] Comment on above: Result Comment: PERF ORMED BY:[address]HeenaChayTUCK[place], [place] [id number] MEDICAL DIRECTORLUIS FELIPE MARSH M.D. Performed By: #### C BC ####[place] [id number] [facility] Basophils/100 leukocytes in Blood by Automated countOrdered By: rBook Huddleston on 04-05-2025 Basophils/100 WBC (Bld) 0.6 % Normal . [facility] Comment on above: Performed By: #### C BC ####[place] [id number] [place] [id number] [facility] CBC W Auto Differential pane l (Bld)on 04-05-2025 Basophils (Bld) [#/Vol] 0 10*3/uL 0.0 - 0.2 10*3/uL [facility] Basophils/100 WBC Manual cnt (Syn fld) 0.6 % . [facility] Eosinophils (Bld) [#/Vol] 0.7 10*3/uL High 0.0 - 0.45 10*3/uL [facility] Eosinophils/100 WBC Manual cnt (Syn fld) 8.8 % . [facility] Erythrocyte distribution width (RBC) [Ratio] 16.1 % High 12.0 - 14.8 % [facility] Hematocrit (Bld) [Volume fraction] 31.2 % Low 38.8 - 50.0 % [facility] Hemoglobin (Bld) [Mass/Vol] 10.6 g/dL Low 13.0 - 17.0 g/dL [facility] Interpretation and review of laboratory results Abnormal [facility] Lymphocytes (Bld) [#/Vol] 1.2 10*3/uL 1.00 - 4.8 10*3/uL [facility] Lymphocytes/100 WBC Manual cnt (Syn fld) 14.6 % . [facility] MCH (RBC) [Entitic mass] 35.6 pg High 27.5 - 35.2 pg [facility] MCHC (RBC) [Mass/Vol] 34.1 g/dL 32.5 - 35.6 g/dL [facility] MCV (RBC) [Entitic vol] 104.4 fL High 83.5 - 101 fL [facility] Monocytes (Bld) [#/Vol] 0.6 10*3/uL 0.0 - 0.8 10*3/uL [facility] Monocytes+Macrophages/1 00 WBC Manual cnt (Syn fld) 7 % . [facility] Neutrophils (Bld) [#/Vol] 5.5 10*3/uL 1.8 - 7.7 10*3/uL [facility] Neutrophils/100 WBC Manual cnt (Syn fld) 69 % . [facility] NRBC 0.1 /100{WBC} 0 - 0.5 /100{WBC} [facility] Platelet mean volume (Bld) [Entitic vol] 7.3 fL 6.6 - 10.1 fL [facility] Platelets (Bld) [#/Vol] 210 10*3/uL 150 - 450 10*3/uL [facility] RBC LM.HPF (Urine sed) [#/Area] 2.99 10*6/uL Low 3.90 - 5.60 10*6/uL [facility] WBC (Bld) [#/Vol] 8 10*3/uL 4.1 - 10.5 10*3/uL [facility] WBC LM.HPF (Urine sed) [#/Area] 8 [CFU]/mL 4.1 - 10.5 [CFU]/mL [facility] CNPNon 04-05-2025 CNPN Telephone (AVXRPR) -- PATSY CUNNINGHAM ([id number]) 1945 M Date Time Provider Department 04/05/25 STANFORD SALDIVAR [facility] During your visit today, we recorded the following information about you: Stanford Saldivar RN 04/05/2025 11:18 AM Addendum Spoke with Piedad and pt on the line, aware of below instructions RADIOLOGY PROCEDURE INSTRUCTIONS: You are scheduled for a Bilateral Nephrostomy tube change, on March You are to arrive at 1030 am and check in at [facility]: Radiology Outpatient Desk [id number]. You can expect to be here for 2-3 hours. Address: [place] [address] Diet: Do not eat any solid food [...] work. Stated is having lab drawn at [facility]. She will call pt Dr. Parham to add Inr and CBC to current blood work. Advised to bring in copies of lab work. Lab work needs to be drawn? Yes, labs need to be drawn at least one day prior to procedure. Please bring a copy of the results if they are not done at a [facility] facility. Internet Sales Associate/Transportation: How will you be arriving for your [...] or reschedule your procedure, please call our tap and die maker technician: Teo Johansen [phone]; 8am - 4pm M-F If you have any additional questions please call: [facility] nurses desk at [phone] 8am - 4pm M-F. Allergies As of [...] 12/15/2022 Pros (more content not included)... Normal [facility] Calcium [Mass/volume] in Ser um or PlasmaOrdered By: Orquidea Cortez on 04-05-2025 Calcium [Mass/Vol] 8.9 mg/dL Normal 8.6-10.3 [facility] Comment on above: Result Comment: PERF ORMED BY:[facility] [place] [id number] MEDICAL DIRECTORLUIS FELIPE MARSH M.D. Performed By: #### B MP ####[facility] [id number] Carbon dioxide, total [Moles /volume] in Serum or PlasmaOrdered By: Orquidea Cortez on 04-05-2025 CO2 [Moles/Vol] 26.7 mmol/L Normal 21.0-31.0 [facility] Comment on above: Performed By: #### B MP ####[address] Chloride [Moles/volume] in S valeria or PlasmaOrdered By: Orquidea Cortez on 04-05-2025 Chloride [Moles/Vol] 105 mmol/L Normal 98-107 [facility] Comment on above: Performed By: #### B MP ####[address] Complete Blood Count Auto Di ffon 04-05-2025 Mean Corpuscular HGB Conc 34.1 g/dL Normal 32.5-35.6 [facility] Comment on above: Performed By: #### C BC ####[address] NRBC% 0.1 /100{WBC} Normal 0-0.5 [facility] Comment on above: Performed By: #### C BC ####[address] White Blood Count 8.0 [CFU]/mL Normal 4.1-10.5 [facility] Comment on above: Performed By: #### C BC ####[address] Creatinine [Mass/volume] in Serum or PlasmaOrdered By: Orquidea Cortez on 04-05-2025 Creatinine [Mass/Vol] 2.23 mg/dL High 0.70-1.30 [facility] Comment on above: Performed By: #### B MP ####[address] Eosinophils [#/volume] in Bl ood by Automated countOrdered By: Brook Huddleston on 04-05-2025 Eosinophils (Bld) [#/Vol] 0.7 10*3/uL High 0.0-0.45 [facility] Comment on above: Performed By: #### C BC ####[address] Eosinophils/100 leukocytes i n Blood by Automated countOrdered By: Brook Huddleston on 04-05-2025 Eosinophils/100 WBC (Bld) 8.8 % Normal . [facility] Comment on above: Performed By: #### C BC ####[address] Erythrocyte distribution wid th [Ratio] by Automated countOrdered By: Borok Huddleston on 04-05-2025 Erythrocyte distribution width (RBC) [Ratio] 16.1 % High 12.0-14.8 [facility] Comment on above: Performed By: #### C BC ####[address] [address] Erythrocytes [#/volume] in B lood by Automated countOrdered By: Brook Huddleston on 04-05-2025 RBC (Bld) [#/Vol] 2.99 10*6/uL Low 3.90-5.60 [facility] Comment on above: Performed By: #### C BC ####[address] Glomerular filtration rate [ Volume Rate/Area] in Serum, Plasma or Blood by CreatinineOrdered By: Orquidea Cortez on 04-05-2025 Glomerular filtration rate [Volume Rate/Area] in Serum, Plasma or Blood by Creatinine 29.063 mL/Min [facility] Glucose [Mass/volume] in Ser um or PlasmaOrdered By: Orquidea Cortez on 04-05-2025 Glucose [Mass/Vol] 106 mg/dL High 70-100 [facility] Comment on above: ADA recommended refe rence rangeRandom Glucose Reference Range is dependent on time and content of last meal. Glucose of more than 200 mg/dL in a nonstressed, ambulatory subject supports the diagnosis of Diabetes Mellitus. Result Comment: [place] om Glucose Reference Range is dependent on time and content of last meal. Glucose of more than 200 mg/dL in a nonstressed, ambulatory subject supports the diagnosis of Diabetes Mellitus. ADA recommended reference range Performed By: #### B MP ####[address] [address] [facility] Hematocrit [Volume Fraction] of Blood by Automated countOrdered By: Brook Flaquito on 04-05-2025 Hematocrit (Bld) [Volume fraction] 31.2 % Low 38.8-50.0 [facility] Comment on above: Performed By: #### C BC ####[address] [address] [facility] Hemoglobin [Mass/volume] in BloodOrdered By: Brook Huddleston on 04-05-2025 Hemoglobin (Bld) [Mass/Vol] 10.6 g/dL Low 13.0-17.0 [facility] Comment on above: Performed By: #### C BC ####[place] [id number] [facility] INR in Platelet poor plasma by Coagulation assayOrdered By: Carito Martell on 04-05-2025 INR Coag (PPP) [Relative time] 1.0 {INR} Normal [facility] Comment on above: INR Therapeutic Rang e [...] with mechanical heart valves: 3 - 4.5PERFORMED BY:[address] [place], [place] [id number] NATASHA MARSH M.D. Performed By: #### P T ####[address] [address] [place] Leukocytes [#/volume] correc lizbet for nucleated erythrocytes in Blood by Automated counOrdered By: Brook Huddleston on 04-05-2025 WBC corrected for nucl RBC Auto (Bld) [#/Vol] 8.0 10*3/uL 4.1-10.5 [facility] Leukocytes [#/volume] in Blo od by Automated countOrdered By: Brook Huddleston on 04-05-2025 WBC (Bld) [#/Vol] 8.0 10*3/uL Normal 4.1-10.5 [facility] Comment on above: Performed By: #### C BC ####[address] Lymphocytes [#/volume] in Bl ood by Automated countOrdered By: Brook Huddleston on 04-05-2025 Lymphocytes (Bld) [#/Vol] 1.2 10*3/uL Normal 1.00-4.8 [facility] Comment on above: Performed By: #### C BC ####[address] Lymphocytes/100 leukocytes i n Blood by Automated countOrdered By: Brook Huddleston on 04-05-2025 Lymphocytes/100 WBC (Bld) 14.6 % Normal . [facility] Comment on above: Performed By: #### C BC ####[address] MCH [Entitic mass] by Automa lizbet countOrdered By: Brook Huddleston on 04-05-2025 MCH (RBC) [Entitic mass] 35.6 pg High 27.5-35.2 [facility] Comment on above: Performed By: #### C BC ####[address] MCHC Auto (RBC) [Mass/Vol]Or dered By: Brook Huddleston on 04-05-2025 MCHC (RBC) [Mass/Vol] 34.1 g/dL 32.5-35.6 [facility] MCV [Entitic volume] by Auto mated countOrdered By: Brook Huddleston on 04-05-2025 MCV (RBC) [Entitic vol] 104.4 fL High 83.5-101 [facility] Comment on above: Performed By: #### C BC ####[address] Monocytes [#/volume] in Bloo d by Automated countOrdered By: Brook Huddleston on 04-05-2025 Monocytes (Bld) [#/Vol] 0.6 10*3/uL Normal 0.0-0.8 [facility] Comment on above: Performed By: #### C BC ####[address] Monocytes/100 leukocytes in Blood by Automated countOrdered By: Brook Huddleston on 04-05-2025 Monocytes/100 WBC (Bld) 7.0 % Normal . [facility] Comment on above: Performed By: #### C BC ####[address] Neutrophils [#/volume] in Bl ood by Automated countOrdered By: Brook Huddleston on 04-05-2025 Neutrophils (Bld) [#/Vol] 5.5 10*3/uL Normal 1.8-7.7 [facility] Comment on above: Performed By: #### C BC ####[address] Neutrophils/100 leukocytes i n Blood by Automated countOrdered By: Brook Huddleston on 04-05-2025 Neutrophils/100 WBC (Bld) 69.0 % Normal . [facility] Comment on above: Performed By: #### C BC ####[address] No Panel InformationOrdered By: Orquidea Cortez on 04-05-2025 Pharmacy Creatinine Clearance (Chem N/A [facility] Nucleated erythrocytes [Pres ence] in Blood by Automated countOrdered By: Brook Huddleston on 04-05-2025 Nucleated RBC Auto Ql (Bld) 0.1 /100{WBC} 0-0.5 [facility] Platelet mean volume [Entiti c volume] in Blood by Automated countOrdered By: Brook Huddleston on 04-05-2025 Platelet mean volume (Bld) [Entitic vol] 7.3 fL Normal 6.6-10.1 [facility] Comment on above: Performed By: #### C BC ####[place] [id number] [place] [id number] [facility] Platelets [#/volume] in Bloo d by Automated countOrdered By: Brook Huddleston on 04-05-2025 Platelets (Bld) [#/Vol] 210 10*3/uL Normal 150-450 [facility] Comment on above: Performed By: #### C BC ####[place] [id number] [facility] Potassium [Moles/volume] in Serum or PlasmaOrdered By: Orquidea Cortez on 04-05-2025 Potassium [Moles/Vol] 4.8 mmol/L Normal 3.5-5.1 [facility] Comment on above: Performed By: #### B MP ####[place] [id number] [facility] Prothrombin time (PT)Ordered By: Carito Martell on 04-05-2025 PT Coag (PPP) [Time] 11.2 s Normal 9.0-12.9 [facility] Comment on above: A hematocrit value g reater than 55% may lead to inaccurate results in coagulation testing. Patients having hematocrit values >55% require a special collection tube for coagulation studies. Please contact the laboratory at [phone] for redraw instructions. Result Comment: A he matocrit value greater than 55% may lead to inaccurate results in coagulation testing. Patients having hematocrit values >55% require a special collection tube for coagulation studies. Please contact the laboratory at [phone] for redraw instructions. Performed By: #### P T ####[place] [id number] [facility] Serum or plasma anion gap de terminationOrdered By: Orquidea Cortez on 04-05-2025 Anion gap [Moles/Vol] 10.1 mmol/L Normal 6.0-15.0 [facility] Comment on above: Performed By: #### B MP ####[facility] [place] [address] [facility] Sodium [Moles/volume] in Ser um or PlasmaOrdered By: Orquidea Cortez on 04-05-2025 Sodium [Moles/Vol] 137 mmol/L Normal 136-145 [facility] Comment on above: Performed By: #### B MP ####[facility] [place] [id number] [facility] Urea nitrogen [Mass/volume] in Serum or PlasmaOrdered By: Orquidea Cortez on 04-05-2025 Urea nitrogen [Mass/Vol] 30 mg/dL High 7-25 [facility] Comment on above: Performed By: #### B MP ####[facility] [place] [id number] [facility] Ambulatory Visit Summaryon 0 03-28-2025 Ambulatory [...] RICKS, Orquidea Taylor Where: [facility] [address], [address] [place] [address]- Medications What How Much When Instructions Unchanged [...] signed up for this yet, please contact [employer] at [phone] (more content not included)... Normal [facility] Ambulatory Visit Summaryon 0 03-27-2025 Ambulatory [...] (Multiple o (more content not included)... Normal [facility] Urology Office/Clinic Noteon 03-27-2025 Urology Office/Clinic [...] K 4.3. (with stent and SPT) at [facility] due to RINA and UTI 01/22/24 - Cr 2.58. BUN 31. K 4.1. 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 Renal US 11/17/22 [facility] - R-sided hydronephrosis [...] since the prior US study. 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 urologist for right distal stricture, small [...] ESWL/SPT exchanged 06/10/23. Cont q4m ANA 01/20/24 [facility] - Bilateral mild pelvocaliectasis L>R. S/p cysto, R RPG, stent exchange, SP tube exchange, TP prostate bx, TRUS 06/01/24. Urology consult 06/03/24 due to moderate L hydroureteronephrosis with R stent and SPT S/p cysto, L RPG, stent placement 06/04/24. Admitted @ [facility] 07/20/24 on Cre 6.2 for renal cytosis, Cre level continue to elevate, pt was then transferred to [place]. BL stent exchange, SP tube ex (more content not included)... Normal [facility] Comment on above: Result Comment: Elec tronically Signed By: Orquidea Cortez MD\.br\Date and Time Signed: 03/27/25 16:46 EDT\.br\Electronically Co-Signed By: Aleah Starr.br\Date and Time Co-Signed: 03/27/25 15:32 EDT Bessie 03-20-2025 VARGAS Telephone (Angio) -- PATSY CUNNINGHAM ([id number]) 1945 M Date Time Provider Department 03/20/25 [...] hours please call or and ask the asphalt machine operator to page the interventional residential door unit installer facility environmental technician. 5) To change or schedule an appointment [...] for nephrostomy tube care instructions and demonstrations. [email or web address] pY Activity and Exercise: (When I can [...] please call Interventional Radiology nurse triage line [phone], Thursday - Thursday 9 a.m. - 4 p.m. After hours please call and ask for Interventional Radiology Fellow facility environmental technician, pager [phone]. In the event of acute symptoms report [...] Upset G (more content not included)... Normal [facility] CNPNon 03-16-2025 CNPN Telephone (IRRFV) -- PATSY CUNNINGHAM ([id number]) 1945 M Date Time Provider Department 03/16/25 [facility] PROVIDER IRRFV During your visit today, we recorded the following information about you: Allergies As of Date: 03/16/2025 Noted Allergy Reaction MIRABEGRON 06/27/2022 6 - Diarrhea 8 - GI Upset GABAPENTIN 08/20/2021 2 - Rash Date Reviewed: 03/16/2025 Reviewed by: Krista Tamayo, EVY - Fully Assessed Primary Visit Diagnosis:Ureteral 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.5] Order(s):IR NEPH TUBE CHANGE [1166223] Order #: [id number] STANDING Prescriptions as of 03/16/2025 - aspirin [...] Encounter Status:Closed by BIBIANA MOREIRA on 03/16/25 [facility] CNPN Telephone (AVXRPR) -- PATSY CUNNINGHAM ([id number]) 1945 M Date Time Provider Department 03/16/25 [...] Any other pertinent information needed for schedulers?bilateral Rikki Moreirassica 03/17/2025 7:56 AM Signed Due 04/13-- calling PT Allergies As of Date: 03/16/2025 Noted Allergy Reaction MIRABEGRON 06/27/2022 6 - Diarrhea 8 - GI Upset GABAPENTIN 08/20/2021 2 - Rash Date Reviewed: 03/16/2025 Reviewed by: Krista Tamayo, EVY - Fully Assessed Reason for Visit: IR Outpatient Tube Appointment Request [[id number]] Prescriptions as of 03/17/2025 - aspirin 81 [...] Encounter Status:Closed by ZOHRA BALDWIN on 03/16/25 [facility] HISTORY PHYSICALon HISTORY PHYSICAL HNO ID: [id number] Author: DAX FORBES MD Service: Interventional Radiology [...] No home O2 or RUDY METS >4 PROCEDURE SCHEDULED: Procedure(s): PERC PLACEMENT [...] DATE: March 16, 2025 TIME: 9:23 AM [facility] IR PLACE NEPH TUBE BILATon 0 03-16-[address] NEPH TUBE BILAT * * *Final Report* * * DATE OF EXAM: Mar 16 2025 11:34AM [facility] [id number] - IR PLACE NEPH TUBE BILAT / PROCEDURE REASON: hydronephrosis * * * * Physician Interpretation * * * * Percutaneous nephrostomy placement (BILATERAL) Procedural Personnel Attending: Dax Forbes MD Assistance: None Pre-procedure diagnosis: Bladder dysfunction Post-procedure diagnosis: Same Indication: Urinary diversion PROCEDURES 1. Focused Ultrasound of the LEFT ANIAK kidney 2. Ultrasound and Fluoroscopic-guided placement of a LEFT PCN 3. LEFT antegrade nephrostogram 4. Ultrasound evaluation of the RIGHT ANIAK kidney 5. Ultrasound and fluoroscopic-guided placement of [...] draped in the usual sterile fashion. A advance scout image of the area(s) was obtained and showed no new abnormality compared to prior. LEFT ANIAK NEPHROSTOMY Focused ultrasound evaluation of the LEFT ANIAK kidney was performed as described below. An [...] the tract was dilated and a 10 Mexican PCN was placed. After decompression of the collecting system contrast was injected and an antegrade nephrostogram was performed confirming positioning of the catheter within the urinary collecting system with additional findings as below. The pigtail was formed and locked and a gravity drainage bag attached. The catheter was sutured to the skin with 2-O nonabsorbable suture. RIGHT ANIAK NEPHROSTOMY Focused ultrasound evaluation of the RIGHT ANIAK kidney was performed as described below. An [...] the tract was dilated and a 10 Mexican PCN was placed. After decompression of the collecting system contrast was injected and an antegrade nephrostogram was performed confirming positioning of the catheter within the urinary collecting system with additional findings as below. The pigtail was formed and locked and a gravity drainage bag attached. The catheter was sutured to the skin w (more content not included)... Normal [facility] NURSING PROGon 03-16-2025 NURSING PROG HNO ID: [id number] Author: AFRICA VELASQUEZ RN Service: Nursing Author Type: Registered Nurse Type: Nursing Progress Note Filed: 03/22/2025 16:19 Note Text: Completed post procedure phone call. Patsy is feeling well and has returned to his baseline diet and activity. He denies questions or concerns related to his appointment and had no surgical site concerns. Normal [facility] NURSING PROG HNO ID: [id number] Author: KRISTA TAMAYO, EVY Service: Nursing Author Type: Registered Nurse Type: Nursing Progress Note Filed: 03/16/2025 12:27 Note Text: [facility] INTERVENTIONAL RADIOLOGY CONSULT NOTE [facility] March 16, 2025 Patsy Castillo Gene Tube [...] of a nephrostomy tube is available on YouTMediaSite. Please use this link: [email or web address] pY For questions or concerned please contact [place] [facility] at [phone], option 1. Mon-Fri 8 am to 4:30 pm . For concerns between 4:30PM-7:00AM contact the on-call IR fellow / resident at pager [phone] SIGNATURE: Krista Tamayo RN PATIENT NAME: Patsy Cunningham DATE: March 16, 2025 TIME: 12:17 PM PAGER: [facility] NURSING PROG HNO ID: [id number] Author: ARYA CUNNINGHAM RN Service: Nursing Author [...] (RECOMMENDATION): None Electronically Signed By: Arya Cunningham [facility] C Urineon 03-10-2025 Bacteria identified Cx [...] Locations R1: This test was performed at: [facility], [address] [place] [address], [address]- , [place], [facility] Comment on above: Performed By: #### 2 [id number] #### [facility] [address] [place] [address] XR Urography Retrograde Bila terri 03-09-2025 XR Urography Retrograde Bilateral Exam Date/Time: [...] Stanley DO Transcribed by: NEVAEH Technologist: GANESH [facility] Bessie 03-08-2025 VARGAS Telephone (AVXRPR) -- PATSY CUNNINGHAM ([id number]) 1945 M Date Time Provider Department 03/08/25 MARISOL VENTURA During your visit today, we recorded the following information about you: Marisol Ventura RN 03/08/2025 10:39 AM Addendum Spoke with Patsy Herbert's that appointment is for ThursdayMarch 16 RADIOLOGY PROCEDURE INSTRUCTIONS: You are scheduled for a Nephrostomy Tube Placement, on February You are to arrive at 07:30 am and check in at [facility]: Radiology Outpatient Desk [id number]. You can expect to be here for 6-8 hours. Address: [address] [address] Diet: Do not eat any solid food [...] Lab work needs to be drawn? No. Internet Sales Associate/Transportation: How will you be arriving for your [...] or reschedule your procedure, please call our tap and die maker technician: Aleisha Johansen and [place] [phone]; 8am - 4pm M-F If you have any additional questions please call: [facility] nurses desk at [phone] 8am - 4pm M-F. Option 1 Allergies [...] Encounter Status:Closed by MARISOL VENTURA on 03/08/25 [facility] Main OR Intraoperative Recor don 03-08-2025 Main OR Intraoperative Record Main OR Intraoperative Record IntraOp Document Type FT Summary Primary Physician: Orquidea Cortez MD Finalized Date/Time: 03/08/25 09:30:16 Pt. Name: PATSY CUNNINGHAM/Sex: 1945 Male Med Rec #: [id number] Physician: Orquidea Cortez MD Financial #: [id number] Pt. Type: A Room/Bed: [place] [address] Admit/Disch: 03/07/25 07:51:51 - 03/07/25 14:25:00 Institution: Case Times FT Entry 1 Patient Times In Room 03/07/25 11:47:00 Out Room 03/07/25 12:25:00 Procedure Times Start 03/07/25 12:00:00 Stop 03/07/25 12:20:00 Anesthesia Times Start 03/07/25 11:47:00 Stop 03/07/25 12:25:00 Last Modified By: Kelsey Daniels Ii 03/07/25 14:00:58 Case Attendance FT Entry 1 Entry 2 Entry 3 Case Attendee Emilee KNIGHT, Topher Cortez MD, Orquidea Hernandez BAT BOY/GIRL, Denise Lebron Role Performed Anesthesiologist Surgeon - Primary Scrub - Relief Appliance Worker Time In 03/07/25 11:47:00 03/07/25 11:47:00 03/07/25 11:47:00 Time Out 03/07/25 12:25:00 03/07/25 12:25:00 03/07/25 12:00:00 Procedure CYSTOSCOPY RETROGRADE CYSTOSCOPY RETROGRADE CYSTOSCOPY RETROGRADE STENT STENT STENT INSERTION(Bilateral) INSERTION(Bilateral) INSERTION(Bilateral) Comments DR. MAX WORM PICKER LUNCH RELIEF Last Modified By: Kelsey Daniels Ii F Letron, Alfons Ii F Letrondo, Alfons Ii F 03/07/25 14:01:34 03/07/25 14:01:34 03/07/25 14:01:34 Entry 4 Entry 5 Entry 6 Case Attendee Becca Cunningham Alfons Ii F Barnes RT(R)Heavenly R Role Performed Scrub - Primary Gaming Cashier - Primary Division Plant Engineer Time In 03/07/25 12:00:00 03/07/25 11:47:00 03/07/25 11:47:00 Time Out 03/07/25 12:25:00 03/07/25 12:25:00 03/07/25 12:25:00 Procedure CYSTOSCOPY RETROGRADE CYSTOSCOPY RETROGRADE CYSTOSCOPY RETROGRADE STENT STENT STENT INSERTION(Bilateral) INSERTION(Bilateral) INSERTION(Bilateral) Comments Last Modified By: Kelsey Daniels Ii F [...] Procedure Yes Primary Surgeon Orquidea Cortez MD Start 03/07/25 12:00:00 Stop 03/07/25 12:20:00 Anesthesia Type [...] and tissue Entry 1 Skin Integrity Intact, [place], Warm, & Skin Abnormality No Dry Outcomes Met? Yes Last Modified By: Kelsey Daniels Ii 03/07/25 12:17:44 Post-Care Text: The (more content not included)... Normal [facility] Capillary Glucose POCon 02-15 Glucose [Mass/Vol] 200 mg/dL High 55-99 [facility] Comment on above: Result Comment: Mandi olmos Meter Performed By: #### 2 [id number] #### [facility] [address] [place] [address] Discharge Instructionson Discharge Instructions Discharge Instruc tions [...] Pratima Reno PA-C Where: [facility] [address] [place] [place] [address] [place] [address]- New Follow Up Appointments after Discharge Follow Up with Orquidea Cortez When: Comments: Call to schedule your follow up 1-2 weeks after BL nephrostomy tube placement Where: [facility] Emmanuel Solares, [address] [address] [phone] Business (1) Medications What How Much When [...] hold it (more content not included)... Normal [facility] Comment on above: Result Comment: Elec [...] suprapubic catheter exchange, ureteroscopy, right retrograde pyelogram ([id number]) on 07/28/2024 at 79 Years. Comments: 08/26/2024 15:18 Cornelia Escalona done at [facility] [[email or web address]] Cystoscopy, Left RPG, Left ureteral stent placement ([id number]) on 06/04/2024 at 79 Years. Cystoscopy, Right RPG, Ureteral stent exchange, Suprapubic tube exchange, Transperineal needle biopsy of prostate, Transrectal ultrasound of prostate ([id number]) on 06/01/2024 at 79 Years. Cystoscopy, Right RPG, Ureteral stent exchange, SPT exchange ([id number]) on 02/03/2024 at 78 Years. Rt Ureteral Stent Exchange ([id number]) on 06/10/2023 at 78 Years. Lt ESWL ([id number]) on 06/10/2023 at 78 Years. Cystostomy and insertion of suprapubic tube ([id number]) on 03/05/2023 at 78 Years. Cystoscopic insertion of ureteric stent ([id number]) on 12/10/2022 at 77 Years. TURP - Transurethral resection of prostate ([id number]) on 08/27/2022 at 77 Years. Transurethral insertion of prostatic urethral lift implant ([id number]) on 05/05/2022 at 77 Years. Cysto/Lt Stent Removal ([id number]) on 08/20/2012 at 67 Years. Cysto/Lt RG/ Stone Basket/Lt Stent Placement ([id number]) on 08/05/2012 at 67 Years. LT ESWL ([id number]) on 03/02/2009 at 64 Years. heel spur. Stem cell transplant ([id number]). Dental surgical procedure ([id number]). Social History Social & Psychosocial Habits Alcohol [...] after, # 30 cap(s), Refills(s) 1, Pharmacy: [facility], 171, cm, 07/22/23 9:22:00 EST, Height/Length [...] Problems Asymptomatic microscopic hematuria / SNOMED CT 8098647796 / Confirmed Bilateral hydronephrosis / SNOMED CT 511776603 / Confirmed BPH with urinary obstruction / SNOMED CT 2676367592 / Confirmed Diabetes / SNOMED CT 811664265 / Confirmed Dysuria / SNOMED CT 72499635 / Confirmed Family history of prostate cancer in father / SNOMED CT 0977891545 / Confirmed Glycosuria / SNOMED CT 02074544 / Confirmed History of kidney stones / SNOMED CT 1269639368 / Confirmed HTN (hypertension) / SNOMED CT 7709603428 / Confirmed Hydroureter / SNOMED CT 100771776 / Confirmed Hydroureteronephrosis / SNOMED CT 99733820 / Confirmed Incomplete bladder emptying / SNOMED CT 401035008 / Confirmed Kidney stones / SNOMED CT 1 (more content not included)... Normal [facility] Comment on above: Result Comment: Elec tronically Signed By: Diego RICKS, Orquidea Taylor\.br\Date and Time Signed: 03/07/25 08:31 EDT Inpatient Patient Summaryon 03-07-2025 Inpatient Patient Summary Inpatient Patient Summary [address] [address] [facility] Clinical Discharge Instructions PERSON INFORMATION Name: PATSY CUNNINGHAM PHYSICIANS Admitting Physician: Orquidea Cortez MD Attending Physician: Orquidea Cortez MD PCP: HELEN HEATH MD Discharge Diagnosis: Bilateral hydronephrosis; Chronic indwelling Bond catheter; Hydroureteronephrosis; Noncompliant bladder; Ureteral stricture Comment: PATIENT EDUCATION INFORMATION Instructions: Bond Catheter Care, Male-[facility] (Custom); Ureteral Stent Implantation, Care After Medication Leaflets: Follow up: With: Address: When: Orquidea Cortez [address] [place] [phone] Business (1) Comments: Call to schedule your follow up 1-2 weeks after BL nephrostomy tube placement Type Location Start Finish State URO Office Visit [facility] LINSE[place] 03/15/2025 11:00 AM 03/15/2025 11:20 [...] Mouth every day. Refills: 0. Comment: Shannan [facility] Main OR PACU I Recordon 02-15 Main OR PACU I Record Main OR PACU I Rec ord PACU Phase I Document Type FT Summary Primary Physician: Orquidea Cortez MD Finalized Date/Time: 03/07/25 18:06:19 Pt. Name: PATSY CUNNINGHAM/Sex: 1945 Male Med Rec #: [id number] Physician: Orquidea Cortez MD Financial #: [id number] Pt. Type: A Room/Bed: Admit/Disch: 03/07/25 07:51:51 [...] Signed By: Myrna Ang RN 03/07/25 18:06 [facility] Main OR PACU II Recordon Main OR PACU II Record Main OR PACU II R ecord PACU Phase II Document Type FT Summary Primary Physician: Orquidea Cortez MD Finalized Date/Time: 03/07/25 14:31:22 Pt. Name: PATSY CUNNINGHAM Sharon/Sex: 1945 Male Med Rec #: [id number] Physician: Orquidea Cortez MD Financial #: [id number] Pt. Type: A Room/Bed: [place] [address] Admit/Disch: 03/07/25 07:51:51 - Institution: Case Times [...] By: Ana Castañeda RN 03/07/25 14:31 Normal [facility] Main OR Preoperative Recordo n 03-07-2025 Main OR Preoperative Record Main OR Preoperative Record PreOp Document Type FT Summary Primary Physician: Orquidea Cortez MD Finalized Date/Time: 03/07/25 12:01:52 Pt. Name: PATSY CUNNINGHAM /Sex: 1945 Male Med Rec #: [id number] Physician: Orquidea Cortez MD Financial #: [id number] Pt. Type: A Room/Bed: [place] [address] Admit/Disch: 03/07/25 07:51:51 - Institution: Case Times [...] Signed By: Kelsey Daniels Ii 03/07/25 12:01 [facility] Operative Reporton Operative Report Operative Report Patient: PATSY CUNNINGHAM Age: 80 years Sex: Male : 1945 Associated Diagnoses: None Author: Orquidea Cortez MD Procedure Procedure Date: 03/07/2025. Confirmed: patient, procedure, site, safety procedures followed. Performed by: Orquidea oCrtez MD, anesthesiologist (Topher Hebert [facility]). Type of procedure: 1. Cystoscopy, bilateral retrograde [...] on left (due to inventory) New 16 Mexican suprapubic catheter exchanges, 10 cc in balloon.. [...] We began the procedure using a 22.5 Mexican rigid cystoscope, 30 degree lens, and inserted [...] stent was removed without difficulty. A 5 Mexican open-ended catheter was inserted over the wire, hydronephrotic drip was noted and urine sent for culture based on patient's history of recurrent UTIs. Contrast was injected for retrograde pyelogram findings above. The stent was backloaded through the cystoscope and a new 7 Mexican by 26 cm double-J right ureteral stent [...] catheter was removed and a new 16 Mexican two-way Bond catheter was inserted without difficulty, [...] . Impression and Plan Diagnosis Bilateral hydronephrosis (FIA76-TF N13.30, Discharge, Medical). Chronic indwelling Bond catheter (CIM00-SR Z97.8, Discharge, Medical). Hydroureteronephrosis (FSS28-MO N13.30, Discharge, Medical). Noncompliant bladder (RAK13-WX N31.9, Discharge, Medical). Ureteral stricture (RFS77-OH N13.5, Discharge, Medical). Diagnosis Bilateral hydronephrosis (OGO78-VJ N13.30, Discharge, Medical). Chronic indwelling Bond catheter (ULQ25-SS Z97.8, Discharge, Medical). Hydroureteronephrosis (WKT87-HU N13.30, Discharge, Medical). Noncompliant bladder (OUU02-UF N31.9, Discharge, Medical). Ureteral stricture (UIT53-VT N13.5, Discharge, Medical). Normal [facility] Comment on above: Result Comment: Elec tronically Signed By: Diego RICKS, Orquidea Taylor\.angel\Date and Time Signed: 03/07/25 12:59 EDT Outpatient Surgery Discharge Instructionon 03-07-2025 Outpatient Surgery Discharge Instruction Outpatient Surgery Discharge Instruction [place] [id number] Patient Discharge Instructions PERSON INFORMATION Name: PATSY [...] Follow up: With: Address: When: Orquidea Solares, [place] [address], [address] [address] [phone] Business (1) Comments: Call to schedule your follow up 1-2 weeks after BL nephrostomy tube placement Type Location Start [facility]15[facility] 11:00 AM 03/15/2025 11:20 AM Confirmed Pharmacy Information: You may receive a survey from [employer] asking you to rate your care experience. Your feedback is important and will help us understand what we do well and how we can improve the quality of care we provide to you, your loved ones and our community. It???s an honor to serve you. Thank you for choosing [facility] HERE ARE THE MEDICATION CHANGES [...] this cou (more content not included)... Normal [facility] Proceduralon 03-07-2025 Procedural Procedural Patient: PATSY [...] after, # 30 cap(s), Refills(s) 1, Pharmacy: [facility], 171, cm, 07/22/23 9:22:00 EST, Height/Length [...] Problems Asymptomatic microscopic hematuria / SNOMED CT 8627276589 / Confirmed Bilateral hydronephrosis / SNOMED CT 501791504 / Confirmed BPH with urinary obstruction / SNOMED CT 6387839733 / Confirmed Diabetes / SNOMED CT 529985185 / Confirmed Dysuria / SNOMED CT 21874089 / Confirmed Family history of prostate cancer in father / SNOMED CT 4881679232 / Confirmed Glycosuria / SNOMED CT 15696659 / Confirmed History of kidney stones / SNOMED CT 0688205500 / Confirmed HTN (hypertension) / SNOMED CT 7666839586 / Confirmed Hydroureter / SNOMED CT 364708443 / Confirmed Hydroureteronephrosis / SNOMED CT 96988609 / Confirmed Incomplete bladder emptying / SNOMED CT 932580665 / Confirmed Kidney stones / SNOMED CT 406625270 / Confirmed Microhematuria / SNOMED CT 587338384 / Confirmed Multiple myeloma in remission / SNOMED CT 719256402 / Confirmed Nocturia / SNOMED CT 741267353 / Confirmed Noncompliant bladder / SNOMED CT 3558119948 / Confirmed OAB (overactive bladder) / SNOMED CT 4770260912 / Confirmed Prostate cancer / SNOMED CT 2823740204 / Confirmed Recurrent UTI / SNOMED CT 513146523 / Confirmed Rheumatoid arthritis / SNOMED CT 127867263 / Confirmed Ureteral stricture / SNOMED CT 52318454 / Confirmed UTI (urinary tract infection) / SNOMED CT 850083082 / Confirmed UTI symptoms / SNOMED CT 871116070 / Confirmed Weak urine stream / SNOMED CT 147591989 / Confirmed Resolved: Elevated cholesterol / SNO (more content not included)... Normal [facility] Procedural Procedural Patient: PATSY CUNNINGHAM Age: 80 years Sex: Male : 1945 Associated Diagnoses: None Author: Mansoor RICKS, Delmar Blum Postoperative Information Postoperative disposition: Postoperative disposition: To PACU. Optimetrix number: Optimetrix number [id number]. Anesthetic utilized: General. Health Status Allergies: Allergic [...] Transfer/Discharge: Transfer/Discharge Discharge when meets criteria. Normal [facility] CBC W Auto Differential pane l (Bld)on 03-04-2025 Basophils (Bld) [#/Vol] 10*3/uL Normal <0.[address] [facility] Comment on above: Order Comment: Speci men Type: BLOOD SPECIMEN Ordering Facility: [facility] Address: [address] [place] [address] Performed By: #### 5 7021-8 #### [facility] CLIA [id number] [address] [place] [address] [place] Basophils/100 WBC (Bld) 0.3 % Normal [facility] Comment on above: Order Comment: Speci men Type: BLOOD SPECIMEN Ordering Facility: [facility] Address: [address] [place] [address] Performed By: #### 5 7021-8 #### [facility] CLIA [id number] [address] [place] [address] [place] Differential cell count method Nom (Bld) Auto Normal [facility] Comment on above: Order Comment: Speci men Type: BLOOD SPECIMEN Ordering Facility: [facility] Address: [address] [place] [address] Performed By: #### 5 7021-8 #### [facility] CLIA [id number] [address] [place] [address] [place] Eosinophils (Bld) [#/Vol] 0.30 10*3/uL Normal <0.46 [facility] Comment on above: Order Comment: Speci men Type: BLOOD SPECIMEN Ordering Facility: [facility] Address: [address] [place] [address] Performed By: #### 5 7021-8 #### [facility] CLIA [id number] [address] [place] [address] [place] Eosinophils/100 WBC (Bld) 4.4 % Normal [facility] Comment on above: Order Comment: Speci men Type: BLOOD SPECIMEN Ordering Facility: [facility] Address: [address] [place] [address] Performed By: #### 5 7021-8 #### [facility] CLIA [id number] [address] [place] [address] [place] Erythrocyte distribution width (RBC) [Ratio] 15.2 % High 11.5-15.0 [facility] Comment on above: Order Comment: Speci men Type: BLOOD SPECIMEN Ordering Facility: [facility] Address: [address] [place] [address] Performed By: #### 5 7021-8 #### [facility] CLIA [id number] [address] [place] [address] [place] Hematocrit (Bld) [Volume fraction] 31.7 % Low 39.0-51.0 [facility] Comment on above: Order Comment: Speci men Type: BLOOD SPECIMEN Ordering Facility: [facility] Address: [address] [place] [address] Performed By: #### 5 7021-8 #### [facility] CLIA [id number] [address] [place] [address] [place] Hemoglobin (Bld) [Mass/Vol] 10.1 g/dL Low 13.0-17.0 [facility] Comment on above: Order Comment: Speci men Type: BLOOD SPECIMEN Ordering Facility: [facility] Address: [address] [place] [address] Performed By: #### 5 7021-8 #### [facility] CLIA [id number] [address] [place] [address] [place] Immature granulocytes (Bld) [#/Vol] 0.03 10*3/uL Normal <0.10 [facility] Comment on above: Order Comment: Speci men Type: BLOOD SPECIMEN Ordering Facility: [facility] Address: [address] [place] [address] Performed By: #### 5 7021-8 #### [facility] CLIA [id number] [address] [place] [address] [place] Immature granulocytes/100 WBC (Bld) 0.4 % Normal [facility] Comment on above: Order Comment: Speci men Type: BLOOD SPECIMEN Ordering Facility: [facility] Address: [address] [place] [address] Performed By: #### 5 7021-8 #### [facility] CLIA [id number] [address] [place] [address] [place] Lymphocytes (Bld) [#/Vol] 1.10 10*3/uL Normal 1.00-4.00 [facility] Comment on above: Order Comment: Speci men Type: BLOOD SPECIMEN Ordering Facility: [facility] Address: [address] [place] [address] Performed By: #### 5 7021-8 #### [facility] CLIA [id number] [address] [place] [address] [place] Lymphocytes/100 WBC (Bld) 16.1 % Normal [facility] Comment on above: Order Comment: Speci men Type: BLOOD SPECIMEN Ordering Facility: [facility] Address: [address] [place] [address] Performed By: #### 5 7021-8 #### [facility] CLIA [id number] [address] [place] [address] [place] MCH (RBC) [Entitic mass] 34.5 pg High 26.0-34.0 [facility] Comment on above: Order Comment: Speci men Type: BLOOD SPECIMEN Ordering Facility: [facility] Address: [address] [place] [address] Performed By: #### 5 7021-8 #### [facility] CLIA [id number] [address] [place] [address] [place] MCHC (RBC) [Mass/Vol] 31.9 g/dL Normal 30.5-36.0 [facility] Comment on above: Order Comment: Speci men Type: BLOOD SPECIMEN Ordering Facility: [facility] Address: [address] [place] [address] Performed By: #### 5 7021-8 #### [facility] CLIA [id number] [address] [place] [address] [place] MCV (RBC) [Entitic vol] 108.2 fL High 80.0-100.[address] [facility] Comment on above: Order Comment: Speci men Type: BLOOD SPECIMEN Ordering Facility: [facility] Address: [address] [place] [address] Performed By: #### 5 7021-8 #### [facility] CLIA [id number] [address] [place] [address] [place] Monocytes (Bld) [#/Vol] 0.46 10*3/uL Normal <0.87 [facility] Comment on above: Order Comment: Speci men Type: BLOOD SPECIMEN Ordering Facility: [facility] Address: [address] [place] [address] Performed By: #### 5 7021-8 #### [facility] CLIA [id number] [address] [place] [address] [place] Monocytes/100 WBC (Bld) 6.7 % Normal [facility] Comment on above: Order Comment: Speci men Type: BLOOD SPECIMEN Ordering Facility: [facility] Address: [address] [place] [address] Performed By: #### 5 7021-8 #### [facility] CLIA [id number] [address] [place] [address] [place] Neutrophils (Bld) [#/Vol] 4.94 10*3/uL Normal 1.45-7.50 [facility] Comment on above: Order Comment: Speci men Type: BLOOD SPECIMEN Ordering Facility: [facility] Address: [address] [place] [address] Performed By: #### 5 7021-8 #### [facility] CLIA [id number] [address] [place] [address] [place] Neutrophils/100 WBC (Bld) 72.1 % Normal [facility] Comment on above: Order Comment: Speci men Type: BLOOD SPECIMEN Ordering Facility: [facility] Address: [address] [place] [address] Performed By: #### 5 7021-8 #### [facility] CLIA [id number] [address] [place] [address] [place] Nucleated RBC (Bld) [#/Vol] 10*3/uL Normal <0.01 [facility] Comment on above: Order Comment: Speci men Type: BLOOD SPECIMEN Ordering Facility: [facility] Address: [address] [place] [address] Performed By: #### 5 7021-8 #### [facility] CLIA [id number] [address] [place] [address] [place] Nucleated RBC/100 WBC (Bld) [Ratio] 0.0 /100 WBC Normal [facility] Comment on above: Order Comment: Speci men Type: BLOOD SPECIMEN Ordering Facility: [facility] Address: [address] [place] [address] Performed By: #### 5 7021-8 #### [facility] CLIA [id number] [address] [place] [address] [place] Platelet mean volume (Bld) [Entitic vol] 10.1 fL Normal 9.0-12.7 [facility] Comment on above: Order Comment: Speci men Type: BLOOD SPECIMEN Ordering Facility: [facility] Address: [address] [place] [address] Performed By: #### 5 7021-8 #### [facility] CLIA [id number] [address] [place] [address] [place] Platelets (Bld) [#/Vol] 204 10*3/uL Normal 150-400 [facility] Comment on above: Order Comment: Speci men Type: BLOOD SPECIMEN Ordering Facility: [facility] Address: [address] [place] [address] Performed By: #### 5 7021-8 #### [facility] CLIA [id number] [address] [place] [address] [place] RBC (Bld) [#/Vol] 2.93 10*6/uL Low 4.20-6.00 [facility] Comment on above: Order Comment: Sumeet amezquita Type: BLOOD SPECIMEN Ordering Facility: [facility] Address: [address] [place] [address] Performed By: #### 5 7021-8 #### [facility] IA [id number] [address] [place] [address] [place] WBC (Bld) [#/Vol] 6.85 10*3/uL Normal 3.70-11.00 [facility] Comment on above: Order Comment: Sumeet amezquita Type: BLOOD SPECIMEN Ordering Facility: [facility] Address: [address] [place] [address] Performed By: #### 5 7021-8 #### [facility] IA [id number] [address] [place] [address] [place] PT panel Coag (PPP)on 2024 INR Coag (PPP) [Relative time] 1.0 {INR} Normal 0.9-1.3 [facility] Comment on above: Order Comment: Sumeet amezquita Type: BLOOD SPECIMEN Ordering Facility: [facility] Address: [address] [place] [address] Result Comment: Aleaj min K Antagonist (VKA) Therapeutic Range: INR 2 to 3 (Target INR of 2.5) Note: For patients treated with VKA drugs, such as warfarin, the [place] [employer] 2012 Guideline recommends [...] 2.5 to 3.5 (target INR of 3). Nimott GH, et al. Chest 2012, 141:7S-47S Ramona RA, et al. [facility] 2017, 70: 252-289 Performed By: #### 3 4528-0 #### [facility] [place] [id number] [address] [place] [address] [place] PT Coag (PPP) [Time] 10.5 s Normal 9.7-13.0 [facility] Comment on above: Order Comment: Speci men Type: BLOOD SPECIMEN Ordering Facility: [facility] Address: [address] [place] [address] Performed By: #### 3 4528-0 #### [facility] [place] [id number] [address] [place] [address] [place] C Urineon 02-24-2025 Bacteria identified Cx Nom (U) Microbiology PROCEDURE: Urine Culture [R1] SOURCE: U Cath BODY SITE: COLLECTED DATE/TIME: 02/22/2025 13:22 EDT RECEIVED DATE/TIME: 02/22/2025 19:18 EDT START DATE/TIME: 02/22/2025 19:18 EDT FREE TEXT SOURCE: Shadia COOPER, Pratima Reno PA-C, Pratima FINAL REPORTS Final [...] This test was performed at: [facility], [address] [place] [address], [address] , [place], [facility] Comment on above: Performed By: #### 2 [id number] #### [facility] [address] [place] [address] 02-24-2025 CNPN Telephone (IRRFV) -- PATSY CUNNINGHAM ([id number]) 1945 Date Time Provider Department 02/24/25 BIBIANA [...] Encounter Status:Closed by BIBIANA MOREIRA on 02/24/25 [facility] Ambulatory Visit Summaryon 0 02-23-2025 Ambulatory Visit [...] Appointments Thursday 3:30 PM EDT With: Where: [facility] Thursday 12:45 PM EDT With: Where: [facility] Thursday 11:00 AM EDT With: Pratima Reno PA-C Where: [facility] [address] [place] [address]- You Need to Schedule the Following Appointments Follow Up with Diego RICKS, OUSMANE Bell, U[facility] When: Where: Someone Will Contact You Regarding These Appointments [facility] External Ambulatory Referral, Other Referral, IR at [facility] for BL neph tube placement, 02/23/25 13:39:00 [...] Bilateral hydronephros (more content not included)... Normal [facility] Urology Office/Clinic Noteon 02-23-2025 Urology Office/Clinic [...] K 4.3. (with stent and SPT) at [facility] due to RINA and UTI 01/22/24 - Cr 2.58. BUN 31. K 4.1. 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 Renal US 11/17/22 [facility] - R-sided hydronephrosis [...] since the prior US study. 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 urologist for right distal stricture, small [...] ESWL/SPT exchanged 06/10/23. Cont q4m ANA 01/20/24 [facility] - Bilateral mild pelvocaliectasis L>R. S/p cysto, R RPG, stent exchange, SP tube exchange, TP prostate bx, TRUS 06/01/24. Urology consult 06/03/24 due to moderat (more content not included)... Normal [facility] Comment on above: Result Comment: Elec [...] RICKS, Orquidea Taylor Where: [facility] [address] [place] [address]- Thursday 11:00 AM EDT With: Pratima Reno PA-C Where: [facility] [address] [place] [address] [place] [address]- Medications What How Much When Instructions Unchanged [...] signed up for this yet, please contact [employer] at [phone] to get signed up today. Language Information Language assistance services are available as needed. Normal [facility] Appearance of UrineOrdered B y: Brook Huddleston on 02-08-2025 Appearance (U) Turbid Critically abnormal Clear [facility] Comment on above: Order Comment: Name Collection Type:: Suprapubic Collection Performed By: #### C UU, ADDONUAPLUS ####[facility] [id number] [place] [address] [facility] Bacteria [Presence] in Urine by AutomatedOrdered By: Brook Huddleston on 02-08-2025 Bacteria Auto Ql (U) 2+ [HPF] High None Seen [facility] Bilirubin Test strip Ql (U)O rdered By: Brook Huddleston on 02-08-2025 Bilirubin Ql (U) Negative Negative [facility] Color of Urine by AutoOrdere d By: Brook Huddleston on 02-08-2025 Color (U) Light-orange Critically abnormal Yellow [facility] Comment on above: Order Comment: Name Collection Type:: Suprapubic Collection Performed By: #### C UU, ADDONUAPLUS ####[address] [address] [facility] Dipstick and Microscopicon 0 02-08-2025 Bacteria,Urine 2+ [HPF] Normal None Seen [facility] Comment on above: Order Comment: Name Collection Type:: Suprapubic Collection Performed By: #### C UU, ADDONUAPLUS ####[address] [address] [facility] Bilirubin,Urine Negative Normal Negative [facility] Comment on above: Order Comment: Name Collection Type:: Suprapubic Collection Performed By: #### C UU, ADDONUAPLUS ####[address] [place] Yeast,Urine 4+ [HPF] Normal None Seen [facility] Comment on above: Order Comment: Name Collection Type:: Suprapubic Collection Result Comment: PERF ORMED BY:[address] [place] [id number] MEDICAL NATASHA MARSH M.D. Performed By: #### C UU, ADDONUAPLUS ####[place] [id number] [facility] Glucose Ql (U) 100 mg/dL Normal Normal [facility] Comment on above: Order Comment: Name Collection Type:: Suprapubic Collection Performed By: #### C UU, ADDONUAPLUS ####[address] [address] [facility] Hyaline Casts,Urine None Normal 0-8 [facility] Comment on above: Order Comment: Name Collection Type:: Suprapubic Collection Performed By: #### C UU, ADDONUAPLUS ####[address] [address] [facility] Nitrite,Urine Positive Normal Negative [facility] Comment on above: Order Comment: Name Collection Type:: Suprapubic Collection Performed By: #### C UU, ADDONUAPLUS ####[address] [address] [facility] Occult Blood,Urine 3+ Normal Negative [facility] Comment on above: Order Comment: Name Collection Type:: Suprapubic Collection Result Comment: PERF ORMED BY:[address] [place], [place] [id number] MEDICAL DIRECTORLUIS FELIPE MARSH M.D. Performed By: #### C UU, ADDONUAPLUS ####[address] [address] [facility] RBC,Urine 50-100 Normal 0-4 [facility] Comment on above: Order Comment: Name Collection Type:: Suprapubic Collection Performed By: #### C UU, ADDONUAPLUS ####[place] [id number] [facility] Specificy [place],Urine 1.016 Normal 1.00 1-1.03 0 [facility] Comment on above: Order Comment: Name Collection Type:: Suprapubic Collection Performed By: #### C UU, ADDONUAPLUS ####[address] [address] [facility] Urobilinogen,Urine Normal Normal Normal [facility] Comment on above: Order Comment: Name Collection Type:: Suprapubic Collection Performed By: #### C UU, ADDONUAPLUS ####[address] [address] [facility] WBC CL[place], Urine Occasional Normal None Seen [facility] Comment on above: Order Comment: Name Collection Type:: Suprapubic Collection Performed By: #### C UU, ADDONUAPLUS ####[address] [address] [facility] WBC,Urine Innumerable Normal 0-4 [facility] Comment on above: Order Comment: Name Collection Type:: Suprapubic Collection Performed By: #### C UU, ADDONUAPLUS ####[address] [address] [facility] Epithelial cells.squamous [# /area] in Urine sediment by Automated countOrdered By: Brook Huddleston on 02-08-2025 Epithelial cells.squamous Auto (Urine sed) [#/Area] N/A [facility] Erythrocytes [#/area] in Uri ne sediment by Automated countOrdered By: Brook Huddleston on 02-08-2025 RBC Auto (Urine sed) [#/Area] 50-100 [HPF] High 0-4 [facility] Glucose [Mass/volume] in Uri ne by Test stripOrdered By: Brook Huddleston on 02-08-2025 Glucose Test strip (U) [Mass/Vol] 100 mg/dL High Normal [facility] Hemoglobin Test strip Ql (U) Ordered By: Brook Huddleston on 02-08-2025 Hemoglobin Ql (U) 3+ High Negative [facility] Hyaline casts [#/area] in Ur ine sediment by Automated countOrdered By: Brook Huddleston on 02-08-2025 Hyaline casts Auto (Urine sed) [#/Area] None [LPF] 0-8 [facility] Ketones [Presence] in Urine by Test stripOrdered By: Brook Huddleston on 02-08-2025 Ketones Ql (U) Negative Normal Negative [facility] Comment on above: Order Comment: Name Collection Type:: Suprapubic Collection Performed By: #### C UU, ADDONUAPLUS ####[place] [id number] [address] Leukocyte clumps [Presence] in Urine by AutomatedOrdered By: Brook Huddleston on 02-08-2025 Leukocyte clumps Auto Ql (U) Occasional [LPF] High None Seen [facility] Leukocyte esterase [Presence ] in Urine by Test stripOrdered By: Brook Huddleston on 02-08-2025 Leukocyte esterase Test strip Ql (U) 4+ Normal Negative [facility] Comment on above: Order Comment: Name Collection Type:: Suprapubic Collection Performed By: #### C UU, ADDONUAPLUS ####[address] Leukocytes [#/area] in Urine sediment by Automated countOrdered By: Brook Huddleston on 02-08-2025 WBC Auto (Urine sed) [#/Area] Innumerable [HPF] High 0-4 [facility] Nitrite Test strip Ql (U)Ord ered By: Brook Huddleston on 02-08-2025 Nitrite Ql (U) Positive High Negative [facility] Protein [Mass/volume] in Uri ne by Test stripOrdered By: Brook Huddleston on 02-08-2025 Protein (U) [Mass/Vol] 100 mg/dL Normal Negative [facility] Comment on above: Order Comment: Name Collection Type:: Suprapubic Collection Performed By: #### C UU, ADDONUAPLUS ####[facility] Nos[address] Specific gravity Test strip (U) [Rel density]Ordered By: Brook Huddleston on 02-08-2025 Specific gravity (U) [Rel density] 1.016 1.001-1.03 0 [facility] Urinalysis complete panel (U )on 02-08-2025 Appearance (U) Turbid Critically abnormal Clear [facility] BILIRUBIN,URINE Negative Negative [facility] Healthcare Color (U) [place] Critically abnormal Yellow [facility] Glucose Ql (U) 100 mg/dL Normal [facility] Interpretation and review of laboratory results Abnormal [facility] Ketones Ql (U) Negative Negative [facility] Leukocyte esterase Test strip Ql (U) 4+ Negative [facility] NITRITE,URINE Positive Negative [facility] OCCULT BLOOD,URINE 3+ Negative [facility] pH (U) 6.5 [pH] 5.0 - 9.0 [facility] Protein (U) [Mass/Vol] 100 mg/dL Negative [facility] SPECIFICY GRAVITY,URINE 1.016 1.00 1 - 1.030 [facility] UROBILINOGEN,URINE Normal Normal mg/dL [facility] Name Collection Type :: Suprapubic Collection [facility] Urine Cultureon 02-08-2025 Bacteria identified Cx Nom (U) Normal [facility] Comment on above: Performed By: #### C UU, ADDONUAPLUS ####[facility] [id number] [place] [address] [facility] Urine cultureOrdered By: Brook Huddleston on 02-08-2025 Bacteria identified Cx Nom (U) Morganella morganii MDRO Abnormal [facility] Bacteria identified Cx Nom (U) Staphylococcus aureus Abnormal [facility] Urobilinogen Test strip (U) [Mass/Vol]Ordered By: Brook Huddleston on 02-08-2025 Urobilinogen (U) [Mass/Vol] Normal mg/dL Normal [facility] Yeast.budding [Presence] in Urine by Computer assisted methodOrdered By: Brook Huddleston on 02-08-2025 Yeast.budding Computer assisted Ql (U) 4+ [HPF] High None Seen [facility] pH of Urine by Test stripOrd ered By: Brook Huddleston on 02-08-2025 pH (U) 6.5 [pH] Normal 5.0-9.0 [facility] Comment on above: Order Comment: Name Collection Type:: Suprapubic Collection Performed By: #### C UU, ADDONUAPLUS ####[facility] [id number] [place] [address] [facility] Ambulatory Visit Summaryon 0 02-01-2025 Ambulatory [...] RICKS, Orquidea Taylor Where: [facility] [address], [address] [place] [address]- Medications What How Much When Instructions Unchanged [...] for choosing us for your care. Normal [facility] Alanine aminotransferase [En zymatic activity/volume] in Serum or PlasmaOrdered By: Brook Huddleston on 01-30-2025 ALT [Catalytic activity/Vol] 13 U/L Normal 7-52 [facility] Comment on above: Performed By: #### C MP, CBC ####[facility] [id number] [place] [address] [place]#### JOSE C SERUM, SPE, KAPPA ####[facility] , Albumin [Mass/volume] in Ser um or Plasma by Bromocresol green (BCG) dye binding methoOrdered By: Brook Huddleston on 01-30-2025 Albumin BCG dye [Mass/Vol] 3.8 g/dL 3.5-5.7 [facility] Alkaline phosphatase [Enzyma tic activity/volume] in Serum or PlasmaOrdered By: Brook Huddleston on 01-30-2025 ALP [Catalytic activity/Vol] 110 U/L High 34-104 [facility] Comment on above: Performed By: #### C MP, CBC ####[facility] [id number] [place] [address] [place]#### JOSE C SERUM, SPE, KAPPA ####[facility] , Aspartate aminotransferase [ Enzymatic activity/volume] in Serum or PlasmaOrdered By: Brook Huddleston on 01-30-2025 AST [Catalytic activity/Vol] 15 U/L Normal 13-39 [facility] Comment on above: Performed By: #### C MP, CBC ####[place] [address] [place] [id number] [facility]#### JOSE C SERUM, SPE, KAPPA ####[facility] , Basophils [#/volume] in Bloo d by Automated countOrdered By: Brook Huddleston on 01-30-2025 Basophils (Bld) [#/Vol] 0.0 10*3/uL Normal 0.0-0.2 [facility] Comment on above: Result Comment: PERF ORMED BY:[address] [place], [place] [id number] MEDICAL DIRECTORLUIS FELIPE MARSH M.D. Performed By: #### C MP, CBC ####[address]#### JOSE C SERUM, SPE, KAPPA ####[facility] , Basophils/100 leukocytes in Blood by Automated countOrdered By: Brook Huddleston on 01-30-2025 Basophils/100 WBC (Bld) 0.2 % Normal . [facility] Comment on above: Performed By: #### C MP, CBC ####[address]#### JOSE C SERUM, SPE, KAPPA ####[facility] , Bilirubin.total [Mass/volume ] in Serum or PlasmaOrdered By: Brook Huddleston on 01-30-2025 Bilirubin [Mass/Vol] 0.5 mg/dL Normal 0.3-1.0 [facility] Comment on above: Performed By: #### C MP, CBC ####[place] [address] [place]#### JOSE C SERUM, SPE, KAPPA ####[facility] , CBC W Auto Differential pane l (Bld)on 01-30-2025 Basophils (Bld) [#/Vol] 0 10*3/uL 0.0 - 0.2 10*3/uL [facility] Basophils/100 WBC Manual cnt (Syn fld) 0.2 % . [facility] Eosinophils (Bld) [#/Vol] 0.3 10*3/uL 0.0 - 0.45 10*3/uL [facility] Eosinophils/100 WBC Manual cnt (Syn fld) 4.8 % . [facility] Erythrocyte distribution width (RBC) [Ratio] 16.2 % High 12.0 - 14.8 % [facility] Hematocrit (Bld) [Volume fraction] 30 % Low 38.8 - 50.0 % [facility] Hemoglobin (Bld) [Mass/Vol] 10.1 g/dL Low 13.0 - 17.0 g/dL [facility] Interpretation and review of laboratory results Abnormal [facility] Lymphocytes (Bld) [#/Vol] 1 10*3/uL 1.00 - 4.8 10*3/uL [facility] Lymphocytes/100 WBC Manual cnt (Syn fld) 14.3 % . [facility] MCH (RBC) [Entitic mass] 34.8 pg 27.5 - 35.2 pg [facility] MCHC (RBC) [Mass/Vol] 33.8 g/dL 32.5 - 35.6 g/dL [facility] MCV (RBC) [Entitic vol] 102.9 fL High 83.5 - 101 fL [facility] Monocytes (Bld) [#/Vol] 0.5 10*3/uL 0.0 - 0.8 10*3/uL [facility] Monocytes+Macrophages/1 00 WBC Manual cnt (Syn fld) 6.8 % . [facility] Neutrophils (Bld) [#/Vol] 5.1 10*3/uL 1.8 - 7.7 10*3/uL [facility] Healthcare Neutrophils/100 WBC Manual cnt (Syn fld) 73.9 % . [facility] NRBC 0 /100{WBC} 0 - 0.5 /100{WBC} [facility] Platelet mean volume (Bld) [Entitic vol] 7.6 fL 6.6 - 10.1 fL [facility] Platelets (Bld) [#/Vol] 212 10*3/uL 150 - 450 10*3/uL [facility] RBC LM.HPF (Urine sed) [#/Area] 2.91 10*6/uL Low 3.90 - 5.60 10*6/uL [facility] WBC (Bld) [#/Vol] 6.9 10*3/uL 4.1 - 10.5 10*3/uL [facility] WBC LM.HPF (Urine sed) [#/Area] 6.9 10*3/uL 4.1 - 10.5 10*3/uL [facility] Calcium [Mass/volume] in Ser um or PlasmaOrdered By: Brook Huddleston on 01-30-2025 Calcium [Mass/Vol] 8.6 mg/dL Normal 8.6-10.3 [facility] Comment on above: Performed By: #### C MP, CBC ####[place] [address] [place] [address] [place]#### JOSE C SERUM, SPE, KAPPA ####[facility] , Carbon dioxide, total [Moles /volume] in Serum or PlasmaOrdered By: Brook Huddleston on 01-30-2025 CO2 [Moles/Vol] 24.7 mmol/L Normal 21.0-31.0 [facility] Comment on above: Performed By: #### C MP, CBC ####[place] [address] [place] [address] [place]#### JOSE C SERUM, SPE, KAPPA ####[facility] , Chloride [Moles/volume] in S valeria or PlasmaOrdered By: Brook Huddleston on 01-30-2025 Chloride [Moles/Vol] 106 mmol/L Normal 98-107 [facility] Comment on above: Performed By: #### C MP, CBC ####[facility] [place] [address] [place]#### JOSE C SERUM, SPE, KAPPA ####[facility] , Complete Blood Count Auto Di ffon 01-30-2025 Mean Corpuscular HGB Conc 33.8 g/dL Normal 32.5-35.6 [facility] Comment on above: Performed By: #### C MP, CBC ####[place] [address] [place]#### JOSE C SERUM, SPE, KAPPA ####[facility] , NRBC% 0.0 /100{WBC} Normal 0-0.5 [facility] Comment on above: Performed By: #### C MP, CBC ####[address]#### JOSE C SERUM, SPE, KAPPA ####[facility] , Comprehensive Metabolic Pane mana 01-30-2025 Albumin [Mass/Vol] 3.8 g/dL Normal 3.5-5.7 [facility] Comment on above: Performed By: #### C MP, CBC ####[address]#### JOSE C SERUM, SPE, KAPPA ####[facility] , Creatinine Clr Calc Pharmacy 33.89 Normal [facility] Comment on above: Result Comment: PERF ORMED BY:[address] [place], [place] [phone] MEDICAL DIRECTORLUIS FELIPE MARSH M.D. Performed By: #### C MP, CBC ####[address]#### JOSE C SERUM, SPE, KAPPA ####[facility] , Estimated GFR 31.977 mL/Min Normal [facility] Comment on above: Performed By: #### C MP, CBC ####[place] [address] [place]#### JOSE C SERUM, SPE, KAPPA ####[facility] , Comprehensive metabolic pane [facility] 01-30-2025 Albumin [Mass/Vol] 3.8 g/dL 3.5 - 5.7 g/dL [facility] Albumin/Globulin [Mass ratio] 1.4 {ratio} [facility] ALP [Catalytic activity/Vol] 110 U/L High 34 - 104 U/L [facility] ALT [Catalytic activity/Vol] 13 U/L 7 - 52 U/L [facility] Anion gap [Moles/Vol] 9.5 mmol/L 6.0 - 15.0 meq/L [facility] AST [Catalytic activity/Vol] 15 U/L 13 - 39 U/L [facility] Bilirubin [Mass/Vol] 0.5 mg/dL 0.3 - 1 .0 mg/dL [facility] Calcium [Mass/Vol] 8.6 mg/dL 8.6 - 10. 3 mg/dL [facility] Chloride [Moles/Vol] 106 mmol/L 98 - 10 7 mmol/L [facility] CO2 [Moles/Vol] 24.7 mmol/L 21.0 - 31.0 mmol/L [facility] Creatinine (U) [Mass/Vol] 2.07 mg/dL High 0.70 - 1.30 mg/dL [facility] CREATININE CLR CALC PHARMACY 33.89 [facility] GFR/1.73 sq M.predicted MDRD (S/P/Bld) [Vol rate/Area] 31.977 mL/min/{1.73_m2} mL/Min [facility] Globulin (S) [Mass/Vol] 2.7 g/dL [facility] Glucose [Mass/Vol] 109 mg/dL High 70 - 100 mg/dL [facility] Comment on above: Random Glucose Refer ence Range is dependent on time and content of last meal. Glucose of more than 200 mg/dL in a nonstressed, ambulatory subject supports the diagnosis of Diabetes Mellitus. ADA recommended reference range Interpretation and review of laboratory results Abnormal [facility] Potassium [Moles/Vol] 4.2 mmol/L 3.5 - 5.1 mmol/L [facility] Protein [Mass/Vol] 6.5 g/dL 6.4 - 8.9 g/dL [facility] Sodium [Moles/Vol] 136 mmol/L 136 - 145 mmol/L [facility] Urea nitrogen [Mass/Vol] 23 mg/dL 7 - 25 mg/dL [facility] Creatinine [Mass/volume] in Serum or PlasmaOrdered By: Brook Huddleston on 01-30-2025 Creatinine [Mass/Vol] 2.07 mg/dL High 0.70-1.30 [facility] Comment on above: Performed By: #### C MP, CBC ####[facility] [address]#### JOSE C SERUM, SPE, KAPPA ####[facility] , Eosinophils [#/volume] in Bl ood by Automated countOrdered By: Brook Flaquito on 01-30-2025 Eosinophils (Bld) [#/Vol] 0.3 10*3/uL Normal 0.0-0.45 [facility] Comment on above: Performed By: #### C MP, CBC ####[place] [address] [place]#### JOSE C SERUM, SPE, KAPPA ####[facility] , Eosinophils/100 leukocytes i n Blood by Automated countOrdered By: Brook Flaquito on 01-30-2025 Eosinophils/100 WBC (Bld) 4.8 % Normal . [facility] Comment on above: Performed By: #### C MP, CBC ####[address]#### JOSE C SERUM, SPE, KAPPA ####[facility] , Erythrocyte distribution wid th [Ratio] by Automated countOrdered By: Brook Flaquito on 01-30-2025 Erythrocyte distribution width (RBC) [Ratio] 16.2 % High 12.0-14.8 [facility] Comment on above: Performed By: #### C MP, CBC ####[place] [address] [place]#### JOSE C SERUM, SPE, KAPPA ####[facility] , Erythrocytes [#/volume] in B lood by Automated countOrdered By: Brook Huddleston on 01-30-2025 RBC (Bld) [#/Vol] 2.91 10*6/uL Low 3.90-5.60 [facility] Comment on above: Performed By: #### C MP, CBC ####[place] [address] [place]#### JOSE C SERUM, SPE, KAPPA ####[facility] , Free K+L LT Chains, Qn, Son 01-30-2025 Free [place] Light Chains, S 43.3 mg/L Normal 3.3-19.4 [facility] Comment on above: Performed By: #### C MP, CBC ####[facility]#### JOSE C SERUM, SPE, KAPPA ####[facility] , Free L[place] Light Chains, S 33.1 mg/L Normal 5.7-26.3 [facility] Comment on above: Performed By: #### C MP, CBC ####[place] [address] [address]#### JOSE C SERUM, SPE, KAPPA ####[facility] , [place]/Lambda Ratio, S 1.31 Normal 0.26-1.65 [facility] Comment on above: Result Comment: Perf ormed at: - [facility] [place] [id number] Director Of Manufacturing: Melchor Agrawal PhD, Phone: [phone] BY:[address] [place], [place] [phone] MEDICAL DIRECTORLUIS FELIPE MARSH M.D. Performed By: #### C MP, CBC ####[address]#### JOSE C SERUM, SPE, KAPPA ####[facility] , Glucose [Mass/volume] in Ser um or PlasmaOrdered By: Brook Huddleston on 01-30-2025 Glucose [Mass/Vol] 109 mg/dL High 70-100 [facility] Comment on above: ADA recommended refe rence rangeRandom Glucose Reference Range is dependent on time and content of last meal. Glucose of more than 200 mg/dL in a nonstressed, ambulatory subject supports the diagnosis of Diabetes Mellitus. Result Comment: [place] om Glucose Reference Range is dependent on time and content of last meal. Glucose of more than 200 mg/dL in a nonstressed, ambulatory subject supports the diagnosis of Diabetes Mellitus. ADA recommended reference range Performed By: #### C MP, CBC ####[place] [address] [place] [address] [place]#### JOSE C SERUM, SPE, KAPPA ####[facility] , Hematocrit [Volume Fraction] of Blood by Automated countOrdered By: Brook Huddleston on 01-30-2025 Hematocrit (Bld) [Volume fraction] 30.0 % Low 38.8-50.0 [facility] Comment on above: Performed By: #### C MP, CBC ####[place] [address] [place]#### JOSE C SERUM, SPE, KAPPA ####[facility] , Hemoglobin [Mass/volume] in BloodOrdered By: Brook Flaquito on 01-30-2025 Hemoglobin (Bld) [Mass/Vol] 10.1 g/dL Low 13.0-17.0 [facility] Comment on above: Performed By: #### C MP, CBC ####[address]#### JOSE C SERUM, SPE, KAPPA ####[facility] , Immunofixation,Serumon 01-30 Immunofixation, Serum Comment Critically abnormal . [facility] Comment on above: Result Comment: Immu nofixation shows IgG monoclonal protein with kappa light chain specificity. PLEASE NOTE: Samples from patients receiving DARZALEX(R) (daratumumab) or SARCLISA(R)(isatuximab-[facility]) treatment can appear as an IgG kappa and mask a complete response (CR). If this patient is receiving these therapies, this JOSE C assay interference can be removed by ordering test number [id number]- Immunofixation, Daratumumab-Specific, Serum or [id number]- Immunofixation, Isatuximab-Specific, Serum and submitting a new sample for testing or by calling the lab to add this test to the current sample. Lambda appears asymmetrical. Performed By: #### C MP, CBC ####[place] [id number] [place]#### JOSE C SERUM, SPE, KAPPA ####[facility] , Immunoglobulin A, Serum 221 mg/dL Normal 61-437 [facility] Comment on above: Performed By: #### C MP, CBC ####[facility]#### JOSE C SERUM, SPE, KAPPA ####[facility] , Immunoglobulin G 1146 mg/dL Normal 603-1613 [facility] Comment on above: Performed By: #### C MP, CBC ####[place] [address] [address]#### JOSE C SERUM, SPE, KAPPA ####[facility] , Immunoglobulin M, Serum 53 mg/dL Normal 15-143 [facility] Comment on above: Result Comment: Perf ormed at: - [facility] [address] [id number] Director Of Manufacturing: Melchor Agrawal PhD, Phone: [phone] Performed By: #### C MP, CBC ####[place] [address] [place]#### JOSE C SERUM, SPE, KAPPA ####[facility] , Leukocytes [#/volume] correc lizbet for nucleated erythrocytes in Blood by Automated counOrdered By: Brook Huddleston on 01-30-2025 WBC corrected for nucl RBC Auto (Bld) [#/Vol] 6.9 10*3/uL 4.1-10.5 [facility] Leukocytes [#/volume] in Blo od by Automated countOrdered By: Brook Huddleston on 01-30-2025 WBC (Bld) [#/Vol] 6.9 10*3/uL Normal 4.1-10.5 [facility] Comment on above: Performed By: #### C MP, CBC ####[place] [address] [place]#### JOSE C SERUM, SPE, KAPPA ####[facility] , Lymphocytes [#/volume] in Bl ood by Automated countOrdered By: Brook Huddleston on 01-30-2025 Lymphocytes (Bld) [#/Vol] 1.0 10*3/uL Normal 1.00-4.8 [facility] Comment on above: Performed By: #### C MP, CBC ####[address]#### JOSE C SERUM, SPE, KAPPA ####[facility] , Lymphocytes/100 leukocytes i n Blood by Automated countOrdered By: Brook Huddleston on 01-30-2025 Lymphocytes/100 WBC (Bld) 14.3 % Normal . [facility] Comment on above: Performed By: #### C MP, CBC ####[address]#### JOSE C SERUM, SPE, KAPPA ####[facility] , MCH [Entitic mass] by Automa lizbet countOrdered By: Brook Huddleston on 01-30-2025 MCH (RBC) [Entitic mass] 34.8 pg Normal 27.5-35.2 [facility] Comment on above: Performed By: #### C MP, CBC ####[place] [address] [place]#### JOSE C SERUM, SPE, KAPPA ####[facility] , MCHC Auto (RBC) [Mass/Vol]Or dered By: Brook Huddleston on 01-30-2025 MCHC (RBC) [Mass/Vol] 33.8 g/dL 32.5-35.6 [facility] MCV [Entitic volume] by Auto mated countOrdered By: Brook Huddleston on 01-30-2025 MCV (RBC) [Entitic vol] 102.9 fL High 83.5-101 F [facility] Comment on above: Performed By: #### C MP, CBC ####[place] [address] [place]#### JOSE C SERUM, SPE, KAPPA ####[facility] , Monocytes [#/volume] in Bloo d by Automated countOrdered By: Brook Huddleston on 01-30-2025 Monocytes (Bld) [#/Vol] 0.5 10*3/uL Normal 0.0-0.8 [facility] Comment on above: Performed By: #### C MP, CBC ####[place] [address] [place] [address] [place]#### JOSE C SERUM, SPE, KAPPA ####[facility] , Monocytes/100 leukocytes in Blood by Automated countOrdered By: Brook Huddleston on 01-30-2025 Monocytes/100 WBC (Bld) 6.8 % Normal . [facility] Comment on above: Performed By: #### C MP, CBC ####[place] [address] [place]#### JOSE C SERUM, SPE, KAPPA ####[facility] , Neutrophils [#/volume] in Bl ood by Automated countOrdered By: Brook Huddleston on 01-30-2025 Neutrophils (Bld) [#/Vol] 5.1 10*3/uL Normal 1.8-7.7 [facility] Comment on above: Performed By: #### C MP, CBC ####[place] [address] [place]#### JOSE C SERUM, SPE, KAPPA ####[facility] , Neutrophils/100 leukocytes i n Blood by Automated countOrdered By: Brook Huddleston on 01-30-2025 Neutrophils/100 WBC (Bld) 73.9 % Normal . [facility] Comment on above: Performed By: #### C MP, CBC ####[place] [address] [place]#### JOSE C SERUM, SPE, KAPPA ####[facility] , No Panel InformationOrdered By: Brook Huddleston on 01-30-2025 Estimated GFR (CKD-EPI) 31.977 mL/Min [facility] Creatinine Clearance (Chem 33.89 [facility] Protein Electrophoresis M-Anselmo Comment: g/dL Not Observed [facility] Comment on above: SPE shows asymmetric al gamma. Suggest serum JOSE C and free lightchain analysis for further evaluation. Protein Electrophoresis Note Comment . [facility] Comment on above: Protein electrophore sis scan will follow via computer,mail, or technical documentation specialist delivery.Performed at: [address] [id number] Director: Melchor Agrawal PhD, Phone: [phone] 31.977 mL/Min [facility] 33.89 [facility] Comment: g/dL Not Observed [facility] Comment . [facility] Nucleated erythrocytes [Pres ence] in Blood by Automated countOrdered By: Brook Huddleston on 01-30-2025 Nucleated RBC Auto Ql (Bld) 0.0 /100{WBC} 0-0.5 [facility] Platelet mean volume [Entiti c volume] in Blood by Automated countOrdered By: Brook Huddleston on 01-30-2025 Platelet mean volume (Bld) [Entitic vol] 7.6 fL Normal 6.6-10.1 [facility] Comment on above: Performed By: #### C MP, CBC ####[facility] T[address]#### JOSE C SERUM, SPE, KAPPA ####[facility] , Platelets [#/volume] in Bloo d by Automated countOrdered By: Brook Huddleston on 01-30-2025 Platelets (Bld) [#/Vol] 212 10*3/uL Normal 150-450 [facility] Comment on above: Performed By: #### C MP, CBC ####[facility] [address]#### JOSE C SERUM, SPE, KAPPA ####[facility] , Potassium [Moles/volume] in Serum or PlasmaOrdered By: Brook Huddleston on 01-30-2025 Potassium [Moles/Vol] 4.2 mmol/L Normal 3.5-5.1 [facility] Comment on above: Performed By: #### C MP, CBC ####[address]#### JOSE C SERUM, SPE, KAPPA ####[facility] , Protein Electrophoresis, Ser umon 01-30-2025 Qdxdt-0-Jesyqqjy 0.3 g/dL Normal 0.0-0.4 [facility] Comment on above: Performed By: #### C MP, CBC ####[place] [address] [place]#### JOSE C SERUM, SPE, KAPPA ####[facility] , Dqzsr-3-Qdnzmjlm 0.8 g/dL Normal 0.4-1.0 [facility] Comment on above: Performed By: #### C MP, CBC ####[address]#### JOSE C SERUM, SPE, KAPPA ####[facility] , Beta Globulin 0.9 g/dL Normal 0.7-1.3 [facility] Comment on above: Performed By: #### C MP, CBC ####[place] [address] [place]#### JOSE C SERUM, SPE, KAPPA ####[facility] , Gamma Globulin 1.0 g/dL Normal 0.4-1.8 [facility] Comment on above: Performed By: #### C MP, CBC ####[place] [address] [place]#### JOSE C SERUM, SPE, KAPPA ####[facility] , M-Anselmo Comment: Normal Not Observed [facility] Comment on above: Result Comment: SPE shows asymmetrical gamma. Suggest serum JOSE C and free light chain analysis for further evaluation. Performed By: #### C MP, CBC ####[address]#### JOSE C SERUM, SPE, KAPPA ####[facility] , SPE-Note Comment Normal . [facility] Comment on above: Result Comment: Prot ein electrophoresis scan will follow via computer, mail, or technical documentation specialist delivery. Performed at: [address] [id number] Director Of Manufacturing: Melchor Agrawal PhD, Phone: [phone] Performed By: #### C MP, CBC ####[address]#### JOSE C SERUM, SPE, KAPPA ####[facility] , Protein [Mass/volume] in Ser um or PlasmaOrdered By: Brook Huddleston on 01-30-2025 Protein [Mass/Vol] 6.5 g/dL Normal 6.0-8.5 [facility] Comment on above: Performed By: #### C MP, CBC ####[address]#### JOSE C SERUM, SPE, KAPPA ####[facility] , Serum free kappa light chain measurementOrdered By: Brook Huddleston on 01-30-2025 Immunoglobulin light chains.kappa.free (S) [Mass/Vol] 43.3 mg/L High 3.3-19.4 [facility] Serum globulin measurement ( mass/volume)Ordered By: Brook Huddleston on 01-30-2025 Globulin (S) [Mass/Vol] 3.1 g/dL Normal 2.2-3.9 [facility] Comment on above: Performed By: #### C MP, CBC ####[place] [address] [place]#### JOSE C SERUM, SPE, KAPPA ####[facility] , Serum globulin measurement b y calculation (mass/volume)Ordered By: Brook Huddleston on 01-30-2025 Globulin (S) [Mass/Vol] 2.7 g/dL Normal F [facility] Comment on above: Performed By: #### C MP, CBC ####[place] [address] [place]#### OJSE C SERUM, SPE, KAPPA ####[facility] , Serum immunoglobulin free ka ppa light chains/immunoglobulin free lambda light chainsOrdered By: Brook Huddleston on 01-30-2025 Immunoglobulin light chains.kappa.free/Immun oglobulin light chains.lambda.free (S) [Mass ratio] 1.31 0.26-1.65 [facility] Comment on above: Performed at: [employer] [address] [id number] Director: Melchor Agrawal PhD, Phone: [phone] Serum or plasma IgA measurem ent (mass/volume)Ordered By: Brook Huddleston on 01-30-2025 IgA [Mass/Vol] 221 mg/dL 61-437 [facility] Serum or plasma IgG measurem ent (mass/volume)Ordered By: Brook Huddleston on 01-30-2025 IgG [Mass/Vol] 1146 mg/dL 603-1613 [facility] Serum or plasma IgM measurem ent (mass/volume)Ordered By: Brook Huddleston on 01-30-2025 IgM [Mass/Vol] 53 mg/dL 15-143 [facility] Comment on above: Performed at: [facility] [address] [id number] Director: Melchor Agrawal PhD, Phone: [phone] Serum or plasma albumin reese urement (mass/volume)Ordered By: Brook Huddleston on 01-30-2025 Albumin [Mass/Vol] 3.4 g/dL Normal 2.9-4.4 [facility] Comment on above: Performed By: #### C MP, CBC ####[facility] [id number] [address]#### JOSE C SERUM, SPE, KAPPA ####[facility] , Serum or plasma albumin/glob ulin mass ratioOrdered By: Brook Huddleston on 01-30-2025 Albumin/Globulin [Mass ratio] 1.4 {ratio} Normal [facility] Comment on above: Performed By: #### C MP, CBC ####[facility] [id number] [place] [address] [place]#### JOSE C SERUM, SPE, KAPPA ####[facility] , Albumin/Globulin [Mass ratio] 1.1 {ratio} Normal 0.7-1.7 [facility] Comment on above: Performed By: #### C MP, CBC ####[facility] [id number] [address]#### JOSE C SERUM, SPE, KAPPA ####[facility] , Serum or plasma alpha 1 glob ulin measurement by electrophoresis (mass/volume)Ordered By: Brook Huddleston on 01-30-2025 Alpha 1 globulin Elph [Mass/Vol] 0.3 g/dL 0.0-0.4 [facility] Serum or plasma alpha 2 glob ulin measurement by electrophoresis (mass/volume)Ordered By: Brook Huddleston on 01-30-2025 Alpha 2 globulin Elph [Mass/Vol] 0.8 g/dL 0.4-1.0 [facility] Serum or plasma anion gap de terminationOrdered By: Brook Huddleston on 01-30-2025 Anion gap [Moles/Vol] 9.5 mmol/L Normal 6.0-15.0 [facility] Comment on above: Performed By: #### C MP, CBC ####[facility] [id number] [address]#### JOSE C SERUM, SPE, KAPPA ####[facility] , Serum or plasma beta globuli n measurement by electrophoresis (mass/volume)Ordered By: Brook Huddleston on 01-30-2025 Beta globulin Elph [Mass/Vol] 0.9 g/dL 0.7-1.3 [facility] Serum or plasma gamma globul in measurement by electrophoresis (mass/volume)Ordered By: Brook Huddleston on 01-30-2025 Gamma globulin Elph [Mass/Vol] 1.0 g/dL 0.4-1.8 [facility] Serum or plasma immunoglobul in free lambda light chains measurement (mass/volume)Ordered By: Brook Huddleston on 01-30-2025 Immunoglobulin light chains.lambda.free [Mass/Vol] 33.1 mg/L High 5.7-26.3 [facility] Sodium [Moles/volume] in Ser um or PlasmaOrdered By: Brook Flaquiot on 01-30-2025 Sodium [Moles/Vol] 136 mmol/L Normal 136-145 [facility] Comment on above: Performed By: #### C MP, CBC ####[facility] [id number] [address]#### JOSE C SERUM, SPE, KAPPA ####[facility] , Urea nitrogen [Mass/volume] in Serum or PlasmaOrdered By: Brook Flaquito on 01-30-2025 Urea nitrogen [Mass/Vol] 23 mg/dL Normal 7-25 [facility] Comment on above: Performed By: #### C MP, CBC ####[facility] [id number] [address]#### JOSE C SERUM, SPE, KAPPA ####[facility] [...] This test was performed at: [facility], [address] [place] [address], [facility] , , [facility] Comment on above: Performed By: #### [id number] #### [facility] [address] [place] [address] Ambulatory Visit Summaryon 0 01-11-2025 Ambulatory Visit [...] Pratima Reno PA-C Where: [facility] [address] [place] [address] [place] [address] 1:00 PM EDT With: Diego RICKS, Orquidea Taylor Where: [facility] [address], [address] [place] [address]- Medications What How Much When Instructions Unchanged [...] for choosing us for your care. Normal [facility] CBC W Auto Differential pane l (Bld)on 01-11-2025 Basophils (Bld) [#/Vol] 0 10*3/uL 0.0 - 0.2 10*3/uL [facility] Basophils/100 WBC Manual cnt (Syn fld) 0.3 % . [facility] Eosinophils (Bld) [#/Vol] 0.3 10*3/uL 0.0 - 0.45 10*3/uL [facility] Eosinophils/100 WBC Manual cnt (Syn fld) 4.2 % . [facility] Erythrocyte distribution width (RBC) [Ratio] 15.7 % High 12.0 - 14.8 % [facility] Hematocrit (Bld) [Volume fraction] 29.5 % Low 38.8 - 50.0 % [facility] Hemoglobin (Bld) [Mass/Vol] 10.1 g/dL Low 13.0 - 17.0 g/dL [facility] Interpretation and review of laboratory results Abnormal [facility] Lymphocytes (Bld) [#/Vol] 1.1 10*3/uL 1.00 - 4.8 10*3/uL [facility] Lymphocytes/100 WBC Manual cnt (Syn fld) 15.6 % . [facility] MCH (RBC) [Entitic mass] 35.7 pg High 27.5 - 35.2 pg [facility] MCHC (RBC) [Mass/Vol] 34.2 g/dL 32.5 - 35.6 g/dL [facility] MCV (RBC) [Entitic vol] 104.4 fL High 83.5 - 101 fL [facility] Monocytes (Bld) [#/Vol] 0.6 10*3/uL 0.0 - 0.8 10*3/uL [facility] Monocytes+Macrophages/1 00 WBC Manual cnt (Syn fld) 7.9 % . [facility] Neutrophils (Bld) [#/Vol] 5.2 10*3/uL 1.8 - 7.7 10*3/uL [facility] Neutrophils/100 WBC Manual cnt (Syn fld) 72 % . [facility] NRBC 0.1 /100{WBC} 0 - 0.5 /100{WBC} [facility] Platelet mean volume (Bld) [Entitic vol] 8.2 fL 6.6 - 10.1 fL [facility] Platelets (Bld) [#/Vol] 194 10*3/uL 150 - 450 10*3/uL [facility] RBC LM.HPF (Urine sed) [#/Area] 2.82 10*6/uL Low 3.90 - 5.60 10*6/uL [facility] WBC (Bld) [#/Vol] 7.2 10*3/uL 4.1 - 10.5 10*3/uL [facility] WBC LM.HPF (Urine sed) [#/Area] 7.2 10*3/uL 4.1 - 10.5 10*3/uL [facility] Complete Blood Count Auto Di ffon 01-11-2025 Basophils (Bld) [#/Vol] 0.0 10*3/uL Normal 0.0-0.2 [facility] Comment on above: Result Comment: PERF ORMED BY:[place] [address] [place] [place], [place] [id number] MEDICAL DIRECTORLUIS FELIPE MARSH M.D. Performed By: #### C BC ####[place] [id number] [facility] Basophils/100 WBC (Bld) 0.3 % Normal . T [facility] Comment on above: Performed By: #### C BC ####[place] [id number] [facility] Eosinophils (Bld) [#/Vol] 0.3 10*3/uL Normal 0.0-0.45 [facility] Comment on above: Performed By: #### C BC ####[address] Eosinophils/100 WBC (Bld) 4.2 % Normal . [facility] Comment on above: Performed By: #### C BC ####[place] [id number] [facility] Erythrocyte distribution width (RBC) [Ratio] 15.7 % High 12.0-14.8 [facility] Comment on above: Performed By: #### C BC ####[place] [id number] [facility] Hematocrit (Bld) [Volume fraction] 29.5 % Low 38.8-50.0 [facility] Comment on above: Performed By: #### C BC ####[place] [id number] [facility] Hemoglobin (Bld) [Mass/Vol] 10.1 g/dL Low 13.0-17.0 [facility] Comment on above: Performed By: #### C BC ####[address] Lymphocytes (Bld) [#/Vol] 1.1 10*3/uL Normal 1.00-4.8 [facility] Comment on above: Performed By: #### C BC ####[address] Lymphocytes/100 WBC (Bld) 15.6 % Normal . [facility] Comment on above: Performed By: #### C BC ####[place] [id number] [facility] MCH (RBC) [Entitic mass] 35.7 pg High 27.5-35.2 [facility] Comment on above: Performed By: #### C BC ####[place] [id number] [facility] MCV (RBC) [Entitic vol] 104.4 fL High 83.5-101 [facility] Comment on above: Performed By: #### C BC ####[address] Mean Corpuscular HGB Conc 34.2 g/dL Normal 32.5-35.6 [facility] Comment on above: Performed By: #### C BC ####[address] Monocytes (Bld) [#/Vol] 0.6 10*3/uL Normal 0.0-0.8 [facility] Comment on above: Performed By: #### C BC ####[place] [id number] [facility] Monocytes/100 WBC (Bld) 7.9 % Normal . [facility] Comment on above: Performed By: #### C BC ####[address] Neutrophils (Bld) [#/Vol] 5.2 10*3/uL Normal 1.8-7.7 [facility] Comment on above: Performed By: #### C BC ####[place] [id number] [facility] Neutrophils/100 WBC (Bld) 72.0 % Normal . [facility] Comment on above: Performed By: #### C BC ####[facility] [address] NRBC% 0.1 /100{WBC} Normal 0-0.5 [facility] Comment on above: Performed By: #### C BC ####[address] Platelet mean volume (Bld) [Entitic vol] 8.2 fL Normal 6.6-10.1 [facility] Comment on above: Performed By: #### C BC ####[address] Platelets (Bld) [#/Vol] 194 10*3/uL Normal 150-450 [facility] Comment on above: Performed By: #### C BC ####[address] RBC (Bld) [#/Vol] 2.82 10*6/uL Low 3.90-5.60 [facility] Comment on above: Performed By: #### C BC ####[address] WBC (Bld) [#/Vol] 7.2 10*3/uL Normal 4.1-10.5 [facility] Comment on above: Performed By: #### C BC ####[address] Urology Office/Clinic Noteon 01-11-2025 Urology Office/Clinic [...] be tx'd with Levaquin 500mg qd x7d. 10/16/23 - >100k Enterobacter cloacae, pt started Levequin [...] Information Pratima Reno PA-C, OUSMANE Additional Instructions: RTC in 3 weeks for [...] SubCutaneous, N (more content not included)... Normal [facility] Comment on above: Result Comment: Elec tronically Signed By: Shadia COOPER, Pratima\.br\Date and Time Signed: 01/11/25 12:22 EDT Albumin [Mass/volume] in Ser um or Plasma by Bromocresol green (BCG) dye binding methoOrdered By: Price Crain on 12-28-2024 Albumin BCG dye [Mass/Vol] Albumin [Mass/volume] in Serum or Plasma by Bromocresol green (BCG) dye binding metho 3.5-5.7 [facility] Albumin BCG dye [Mass/Vol] 3.7 g/dL 3.5-5.7 [facility] Calcium [Mass/volume] in Ser um or PlasmaOrdered By: Price Crain on 12-28-2024 Calcium [Mass/Vol] Calcium [Mass/volume ] in Serum or Plasma 8.6-10.3 [facility] Calcium [Mass/Vol] 8.9 mg/dL Normal 8.6-10.3 [facility] Comment on above: Performed By: #### R ENAL, MG, PROCRERAT, CBCNO, URIC ####[facility] [id number] Carbon dioxide, total [Moles /volume] in Serum or PlasmaOrdered By: Price Crain on 12-28-2024 CO2 [Moles/Vol] Carbon dioxide, tota l [Moles/volume] in Serum or Plasma 21.0-31.0 [facility] CO2 [Moles/Vol] 23.8 mmol/L Normal 21.0-31.0 [facility] Comment on above: Performed By: #### R ENAL, MG, PROCRERAT, CBCNO, URIC ####[facility] [id number] [place] [address] [place] Chloride [Moles/volume] in S valeria or PlasmaOrdered By: Price Crain on 12-28-2024 Chloride [Moles/Vol] Chloride [Moles/vol ume] in Serum or Plasma High 98-107 [facility] Chloride [Moles/Vol] 109 mmol/L High 98-107 [facility] Comment on above: Performed By: #### R ENAL, MG, PROCRERAT, CBCNO, URIC ####[place] [id number] [address] Creatinine [Mass/volume] in Serum or PlasmaOrdered By: Price Crain on 12-28-2024 Creatinine [Mass/Vol] Creatinine [Mass/v olume] in Serum or Plasma High 0.70-1.30 [facility] Creatinine [Mass/Vol] 1.97 mg/dL High 0.70-1.30 [facility] Comment on above: Performed By: #### R ENAL, MG, PROCRERAT, CBCNO, URIC ####[place] [id number] [address] Creatinine [Mass/volume] in UrineOrdered By: Price Crain on 12-28-2024 Creatinine (U) [Mass/Vol] Creatinine [Mass/volume] in Urine [facility] Comment on above: No reference range e stablished Creatinine (U) [Mass/Vol] 82.00 mg/dL [facility] Erythrocyte distribution wid th Auto (RBC) [Ratio]Ordered By: Price Crain on 12-28-2024 Erythrocyte distribution width (RBC) [Ratio] Erythrocyte distribution width [Ratio] by Automated count High 12.0-14.8 [facility] Erythrocyte distribution wid th [Ratio] by Automated countOrdered By: Price Crain on 12-28-2024 Erythrocyte distribution width (RBC) [Ratio] 15.3 % High 12.0-14.8 [facility] Comment on above: Performed By: #### R ENAL, MG, PROCRERAT, CBCNO, URIC ####[facility] [id number] [address] Erythrocytes [#/volume] in B lood by Automated countOrdered By: Price Crain on 12-28-2024 RBC (Bld) [#/Vol] 3.00 10*6/uL Low 3.90-5.60 [facility] Comment on above: Performed By: #### R ENAL, MG, PROCRERAT, CBCNO, URIC ####[facility] Glucose [Mass/volume] in Ser um or PlasmaOrdered By: Price Crain on 12-28-2024 Glucose [Mass/Vol] Glucose [Mass/volume ] in Serum or Plasma High 70-100 [facility] Comment on above: ADA recommended refe rence rangeRandom Glucose Reference Range is dependent on time and content of last meal. Glucose of more than 200 mg/dL in a nonstressed, ambulatory subject supports the diagnosis of Diabetes Mellitus. Glucose [Mass/Vol] 203 mg/dL High 70-100 [facility] Comment on above: Result Comment: [place] om Glucose Reference Range is dependent on time and content of last meal. Glucose of more than 200 mg/dL in a nonstressed, ambulatory subject supports the diagnosis of Diabetes Mellitus. ADA recommended reference range Performed By: #### R ENAL, MG, PROCRERAT, CBCNO, URIC ####[place] [id number] Hematocrit Auto (Bld) [Volum e fraction]Ordered By: Price Crain on 12-28-2024 Hematocrit (Bld) [Volume fraction] Hematocrit [Volume Fraction] of Blood by Automated count Low 38.8-50.0 [facility] Hematocrit [Volume Fraction] of Blood by Automated countOrdered By: Price Crain on 12-28-2024 Hematocrit (Bld) [Volume fraction] 30.9 % Low 38.8-50.0 [facility] Comment on above: Performed By: #### R ENAL, MG, PROCRERAT, CBCNO, URIC ####[place] [id number] [address] Hemoglobin [Mass/volume] in BloodOrdered By: Price Crain on 12-28-2024 Hemoglobin (Bld) [Mass/Vol] Hemoglobin [Mass/volume] in Blood Low 13.0-17.0 [facility] Hemoglobin (Bld) [Mass/Vol] 10.5 g/dL Low 13.0-17.0 [facility] Comment on above: Performed By: #### R ENAL, MG, PROCRERAT, CBCNO, URIC ####[place] [id number] Hemogram CBC Without Diffon 12-28-2024 Mean Corpuscular HGB Conc 34.1 g/dL Normal 32.5-35.6 [facility] Comment on above: Performed By: #### R ENAL, MG, PROCRERAT, CBCNO, URIC ####[address] WBC (Bld) [#/Vol] 6.9 10*3/uL Normal 4.1-10.5 [facility] Comment on above: Performed By: #### R ENAL, MG, PROCRERAT, CBCNO, URIC ####[address] Leukocytes [#/volume] correc lizbet for nucleated erythrocytes in Blood by Automated counOrdered By: Price Crain on 12-28-2024 WBC corrected for nucl RBC Auto (Bld) [#/Vol] Leukocytes [#/volume] corrected for nucleated erythrocytes in Blood by Automated coun 4.1-10.5 [facility] WBC corrected for nucl RBC Auto (Bld) [#/Vol] 6.9 10*3/uL 4.1-10.5 [facility] MCH Auto (RBC) [Entitic mass ]Ordered By: Price Crain on 12-28-2024 MCH (RBC) [Entitic mass] MCH [Entitic mass] by Automated count 27.5-35.2 [facility] MCH [Entitic mass] by Automa lizbet countOrdered By: Price Crain on 12-28-2024 MCH (RBC) [Entitic mass] 35.2 pg Normal 27.5-35.2 [facility] Comment on above: Performed By: #### R ENAL, MG, PROCRERAT, CBCNO, URIC ####[address] MCHC Auto (RBC) [Mass/Vol]Or dered By: Price Crain on 12-28-2024 MCHC (RBC) [Mass/Vol] MCHC [Mass/volume] by Automated count 32.5-35.6 [facility] MCHC (RBC) [Mass/Vol] 34.1 g/dL 32.5-35.6 [facility] MCV Auto (RBC) [Entitic vol] Ordered By: Price Crain on 12-28-2024 MCV (RBC) [Entitic vol] MCV [Entitic vol ume] by Automated count High 83.5-101 [facility] MCV [Entitic volume] by Auto mated countOrdered By: Price Crain on 12-28-2024 MCV (RBC) [Entitic vol] 103.1 fL High 83.5-101 F [facility] Comment on above: Performed By: #### R ENAL, MG, PROCRERAT, CBCNO, URIC ####[facility] Magnesium [Mass/volume] in S valeria or PlasmaOrdered By: Price Crain on 12-28-2024 Magnesium [Mass/Vol] Magnesium [Mass/vol ume] in Serum or Plasma 1.9-2.7 [facility] Magnesium [Mass/Vol] 2.0 mg/dL Normal 1.9-2.7 [facility] Comment on above: Performed By: #### R ENAL, MG, PROCRERAT, CBCNO, URIC ####[address] No Panel InformationOrdered By: Price Crain on 12-28-2024 Estimated GFR (CKD-EPI) 33.935 mL/Min [facility] Creatinine Clearance (Chem N/A [facility] 33.935 mL/Min [facility] N/A [facility] Phosphate [Mass/volume] in S valeria or PlasmaOrdered By: Price Crain on 12-28-2024 Phosphate [Mass/Vol] Phosphate [Mass/vol ume] in Serum or Plasma 2.5-4.5 [facility] Phosphate [Mass/Vol] 3.0 mg/dL Normal 2.5-4.5 [facility] Comment on above: Performed By: #### R ENAL, MG, PROCRERAT, CBCNO, URIC ####[place] [id number] [place] [id number] [facility] Platelet mean volume Auto (B ld) [Entitic vol]Ordered By: Price Crain on 12-28-2024 Platelet mean volume (Bld) [Entitic vol] Platelet mean volume [Entitic volume] in Blood by Automated count 6.6-10.1 [facility] Platelet mean volume [Entiti c volume] in Blood by Automated countOrdered By: Price Crain on 12-28-2024 Platelet mean volume (Bld) [Entitic vol] 7.6 fL Normal 6.6-10.1 [facility] Comment on above: Result Comment: PERF ORMED BY:[address] [place], [place] [id number] MEDICAL DIRECTORDOMINIC FRANK M.D. Performed By: #### R ENAL, MG, PROCRERAT, CBCNO, URIC ####[place] [id number] [facility] Platelets Auto (Bld) [#/Vol] Ordered By: Price Crain on 12-28-2024 Platelets (Bld) [#/Vol] Platelets [#/vol ume] in Blood by Automated count 150-450 [facility] Platelets [#/volume] in Bloo d by Automated countOrdered By: Price Crain on 12-28-2024 Platelets (Bld) [#/Vol] 185 10*3/uL Normal 150-450 [facility] Comment on above: Performed By: #### R ENAL, MG, PROCRERAT, CBCNO, URIC ####[place] [id number] [facility] Potassium [Moles/volume] in Serum or PlasmaOrdered By: Price Crain on 12-28-2024 Potassium [Moles/Vol] Potassium [Moles/v olume] in Serum or Plasma 3.5-5.1 [facility] Potassium [Moles/Vol] 3.9 mmol/L Normal 3.5-5.1 [facility] Comment on above: Performed By: #### R ENAL, MG, PROCRERAT, CBCNO, URIC ####[place] [id number] [place] [id number] [facility] Protein Creat Ratio Ur Rando mon 12-28-2024 Creatinine, Urine (Random) 82.00 mg/dL Normal [facility] Comment on above: Result Comment: No r eference range established Performed By: #### R ENAL, MG, PROCRERAT, CBCNO, URIC ####[address] Urine Protein/Creatinine Ratio Not performed Normal 0-200 [facility] Comment on above: Result Comment: PERF ORMED BY:[address] [place], [place] [id number] MEDICAL DIRECTORDOMINIC RFANK M.D. Performed By: #### R ENAL, MG, PROCRERAT, CBCNO, URIC ####[address] Protein [Mass/volume] in Uri neOrdered By: Price Crain on 12-28-2024 Protein (U) [Mass/Vol] Protein [Mass/vol ume] in Urine High 0-9 [facility] Protein (U) [Mass/Vol] 300 mg/dL High 0-9 [facility] Comment on above: Performed By: #### R ENAL, MG, PROCRERAT, CBCNO, URIC ####[place] [id number] [facility] RBC Auto (Bld) [#/Vol]Ordere d By: Price Crain on 12-28-2024 RBC (Bld) [#/Vol] Erythrocytes [#/volu me] in Blood by Automated count Low 3.90-5.60 [facility] Renal Function Panelon 12-28 Albumin [Mass/Vol] 3.7 g/dL Normal 3.5-5.7 [facility] Comment on above: Performed By: #### R ENAL, MG, PROCRERAT, CBCNO, URIC ####[place] [id number] [place] [id number] [facility] Estimated GFR 33.935 mL/Min Normal [facility] Comment on above: Performed By: #### R ENAL, MG, PROCRERAT, CBCNO, URIC ####[place] [address] [place] [id number] [facility] Serum or plasma anion gap de terminationOrdered By: Price Crain on 12-28-2024 Anion gap [Moles/Vol] Serum or plasma an ion gap determination 6.0-15.0 [facility] Anion gap [Moles/Vol] 10.1 mmol/L Normal 6.0-15.0 [facility] Comment on above: Performed By: #### R ENAL, MG, PROCRERAT, CBCNO, URIC ####[place] [id number] Sodium [Moles/volume] in Ser um or PlasmaOrdered By: Price Crain on 12-28-2024 Sodium [Moles/Vol] Sodium [Moles/volume ] in Serum or Plasma 136-145 [facility] Sodium [Moles/Vol] 139 mmol/L Normal 136-145 [facility] Comment on above: Performed By: #### R ENAL, MG, PROCRERAT, CBCNO, URIC ####[place] [address] [place] [id number] [facility] Urate [Mass/volume] in Serum or PlasmaOrdered By: Price Crain on 12-28-2024 Urate [Mass/Vol] Urate [Mass/volume] in Serum or Plasma Low 4.4-7.6 [facility] Urate [Mass/Vol] 3.5 mg/dL Low 4.4-7.6 [facility] Comment on above: Result Comment: PERF ORMED BY:[address] [place], [place] [id number] MEDICAL DIRECTORDOMINIC FRANK M.D. Performed By: #### R ENAL, MG, PROCRERAT, CBCNO, URIC ####[facility] [place] [id number] [facility] Urea nitrogen [Mass/volume] in Serum or PlasmaOrdered By: Price Crain on 12-28-2024 Urea nitrogen [Mass/Vol] Urea nitrogen [Mass/volume] in Serum or Plasma 03-10 [facility] Urea nitrogen [Mass/Vol] 22 mg/dL Normal 03-10 [facility] Comment on above: Performed By: #### R ENAL, MG, PROCRERAT, CBCNO, URIC ####[facility] [place] [id number] [facility] Urine protein/creatinine rat ioOrdered By: Price Crain on 12-28-2024 Protein/Creatinine (U) [Ratio] Urine protein/creatinine ratio [facility] Comment on above: Test not performed Protein/Creatinine (U) [Ratio] TNP [facility] C Urineon 12-23-2024 Bacteria identified Cx Nom [...] This test was performed at: [facility], [address] [place] [address], [facility]- , [place], [facility] Comment on above: Performed By: #### 2 [id number] #### [facility] [address] [place] [address] Urology Office/Clinic Noteon 12-21-2024 Urology Office/Clinic Note [...] Smokeless Tobacco (more content not included)... Normal [facility] Comment on above: Result Comment: Elec tronically Signed By: Shadia COOPER, Pratima\.br\Date and Time Signed: 12/21/24 11:54 EDT Basic Metabolic Panelon 11-17 Estimated GFR 30.217 mL/Min Normal [facility] Comment on above: Performed By: #### B ####[facility] [id number] [place] [address] [facility] Basophils Auto (Bld) [#/Vol] Ordered By: Brook Huddleston on 12-14-2024 Basophils (Bld) [#/Vol] Automated basophil count 0.0-0.2 [facility] Basophils/100 WBC Auto (Bld) Ordered By: Brook Huddleston on 12-14-2024 Basophils/100 WBC (Bld) Automated basophil % . [facility] CBC W Auto Differential pane l (Bld)on 12-14-2024 Basophils (Bld) [#/Vol] 0 10*3/uL 0.0 - 0.2 10*3/uL [facility] Basophils/100 WBC Manual cnt (Syn fld) 0.6 % . [facility] Eosinophils (Bld) [#/Vol] 0.3 10*3/uL 0.0 - 0.45 10*3/uL [facility] Eosinophils/100 WBC Manual cnt (Syn fld) 3.6 % . [facility] Erythrocyte distribution width (RBC) [Ratio] 15.3 % High 12.0 - 14.8 % [facility] Hematocrit (Bld) [Volume fraction] 31.2 % Low 38.8 - 50.0 % [facility] Hemoglobin (Bld) [Mass/Vol] 10.9 g/dL Low 13.0 - 17.0 g/dL [facility] Interpretation and review of laboratory results Abnormal [facility] Lymphocytes (Bld) [#/Vol] 1 10*3/uL 1.00 - 4.8 10*3/uL [facility] Lymphocytes/100 WBC Manual cnt (Syn fld) 13.1 % . [facility] MCH (RBC) [Entitic mass] 36.3 pg High 27.5 - 35.2 pg [facility] MCHC (RBC) [Mass/Vol] 34.9 g/dL 32.5 - 35.6 g/dL [facility] MCV (RBC) [Entitic vol] 104 fL High 83.5 - 101 fL [facility] Monocytes (Bld) [#/Vol] 0.4 10*3/uL 0.0 - 0.8 10*3/uL [facility] Monocytes+Macrophages/1 00 WBC Manual cnt (Syn fld) 5.6 % . [facility] Neutrophils (Bld) [#/Vol] 5.8 10*3/uL 1.8 - 7.7 10*3/uL [facility] Neutrophils/100 WBC Manual cnt (Syn fld) 77.1 % . [facility] NRBC 0.1 /100{WBC} 0 - 0.5 /100{WBC} [facility] Platelet mean volume (Bld) [Entitic vol] 7.7 fL 6.6 - 10.1 fL [facility] Platelets (Bld) [#/Vol] 188 10*3/uL 150 - 450 10*3/uL [facility] RBC LM.HPF (Urine sed) [#/Area] 3 10*6/uL Low 3.90 - 5.60 10*6/uL [facility] WBC (Bld) [#/Vol] 7.5 10*3/uL 4.1 - 10.5 10*3/uL [facility] WBC LM.HPF (Urine sed) [#/Area] 7.5 10*3/uL 4.1 - 10.5 10*3/uL [facility] Calcium [Mass/volume] in Ser um or PlasmaOrdered By: Orquidea Cortez on 12-14-2024 Calcium [Mass/Vol] Calcium [Mass/volume ] in Serum or Plasma 8.6-10.3 [facility] Calcium [Mass/Vol] 9.3 mg/dL Normal 8.6-10.3 [facility] Comment on above: Result Comment: PERF ORMED BY:[place] [address] [place], [place] [phone] MEDICAL DIRECTORDOMINIC FRANK M.D. Performed By: #### B MP ####[place] [id number] [facility] Carbon dioxide, total [Moles /volume] in Serum or PlasmaOrdered By: Orquidea Cortez on 12-14-2024 CO2 [Moles/Vol] Carbon dioxide, tota l [Moles/volume] in Serum or Plasma 21.0-31.0 [facility] CO2 [Moles/Vol] 23.3 mmol/L Normal 21.0-31.0 [facility] Comment on above: Performed By: #### B MP ####[place] [id number] [facility] Chloride [Moles/volume] in S valeria or PlasmaOrdered By: Orquidea Cortez on 12-14-2024 Chloride [Moles/Vol] Chloride [Moles/vol ume] in Serum or Plasma High 98-107 [facility] Chloride [Moles/Vol] 110 mmol/L High 98-107 [facility] Comment on above: Performed By: #### B MP ####[place] [id number] [facility] Complete Blood Count Auto Di ffon 12-14-2024 Basophils (Bld) [#/Vol] 0.0 10*3/uL Normal 0.0-0.2 [facility] Comment on above: Result Comment: PERF ORMED BY:[address] [place], [place] [phone] MEDICAL DIRECTORDOMINIC FRANK M.D. Performed By: #### C BC ####[place] [id number] [facility] Basophils/100 WBC (Bld) 0.6 % Normal . T [facility] Comment on above: Performed By: #### C BC ####[place] [id number] [facility] Eosinophils (Bld) [#/Vol] 0.3 10*3/uL Normal 0.0-0.45 [facility] Comment on above: Performed By: #### C BC ####[address] Eosinophils/100 WBC (Bld) 3.6 % Normal . [facility] Comment on above: Performed By: #### C BC ####[address] Erythrocyte distribution width (RBC) [Ratio] 15.3 % High 12.0-14.8 [facility] Comment on above: Performed By: #### C BC ####[place] [id number] [facility] Hematocrit (Bld) [Volume fraction] 31.2 % Low 38.8-50.0 [facility] Comment on above: Performed By: #### C BC ####[address] Hemoglobin (Bld) [Mass/Vol] 10.9 g/dL Low 13.0-17.0 [facility] Comment on above: Performed By: #### C BC ####[address] Lymphocytes (Bld) [#/Vol] 1.0 10*3/uL Normal 1.00-4.8 [facility] Comment on above: Performed By: #### C BC ####[address] Lymphocytes/100 WBC (Bld) 13.1 % Normal . [facility] Comment on above: Performed By: #### C BC ####[place] [id number] [facility] MCH (RBC) [Entitic mass] 36.3 pg High 27.5-35.2 [facility] Comment on above: Performed By: #### C BC ####[place] [id number] [facility] MCV (RBC) [Entitic vol] 104.0 fL High 83.5-101 [facility] Comment on above: Performed By: #### C BC ####[address] [address] [facility] Mean Corpuscular HGB Conc 34.9 g/dL Normal 32.5-35.6 [facility] Comment on above: Performed By: #### C BC ####[place] [id number] [facility] Monocytes (Bld) [#/Vol] 0.4 10*3/uL Normal 0.0-0.8 [facility] Comment on above: Performed By: #### C BC ####[place] [id number] [facility] Monocytes/100 WBC (Bld) 5.6 % Normal . [facility] Comment on above: Performed By: #### C BC ####[place] [id number] [facility] Neutrophils (Bld) [#/Vol] 5.8 10*3/uL Normal 1.8-7.7 [facility] Comment on above: Performed By: #### C BC ####[place] [id number] [facility] Neutrophils/100 WBC (Bld) 77.1 % Normal . [facility] Comment on above: Performed By: #### C BC ####[place] [id number] [facility] NRBC% 0.1 /100{WBC} Normal 0-0.5 [facility] Comment on above: Performed By: #### C BC ####[place] [id number] [facility] Platelet mean volume (Bld) [Entitic vol] 7.7 fL Normal 6.6-10.1 [facility] Comment on above: Performed By: #### C BC ####[place] [id number] [facility] Platelets (Bld) [#/Vol] 188 10*3/uL Normal 150-450 [facility] Comment on above: Performed By: #### C BC ####[place] [id number] [place] RBC (Bld) [#/Vol] 3.00 10*6/uL Low 3.90-5.60 [facility] Comment on above: Performed By: #### C BC ####[place] [id number] WBC (Bld) [#/Vol] 7.5 10*3/uL Normal 4.1-10.5 [facility] Comment on above: Performed By: #### C BC ####[address] Creatinine [Mass/volume] in Serum or PlasmaOrdered By: Orquidea Cortez on 12-14-2024 Creatinine [Mass/Vol] Creatinine [Mass/v olume] in Serum or Plasma High 0.70-1.30 [facility] Creatinine [Mass/Vol] 2.17 mg/dL High 0.70-1.30 [facility] Comment on above: Performed By: #### B MP ####[address] Eosinophils Auto (Bld) [#/Vo l]Ordered By: Brook Huddleston on 12-14-2024 Eosinophils (Bld) [#/Vol] Automated eosinophil count 0.0-0.45 [facility] Eosinophils/100 WBC Auto (Bl d)Ordered By: Brook Huddleston on 12-14-2024 Eosinophils/100 WBC (Bld) Automated eosinophil % . [facility] Erythrocyte distribution wid th Auto (RBC) [Ratio]Ordered By: Brook Huddleston on 12-14-2024 Erythrocyte distribution width (RBC) [Ratio] Erythrocyte distribution width [Ratio] by Automated count High 12.0-14.8 [facility] Glucose [Mass/volume] in Ser um or PlasmaOrdered By: Orquidea Cortez on 12-14-2024 Glucose [Mass/Vol] Glucose [Mass/volume ] in Serum or Plasma High 70-100 [facility] Comment on above: ADA recommended refe rence rangeRandom Glucose Reference Range is dependent on time and content of last meal. Glucose of more than 200 mg/dL in a nonstressed, ambulatory subject supports the diagnosis of Diabetes Mellitus. Glucose [Mass/Vol] 106 mg/dL High 70-100 [facility] Comment on above: Result Comment: [facility] Glucose Reference Range is dependent on time and content of last meal. Glucose of more than 200 mg/dL in a nonstressed, ambulatory subject supports the diagnosis of Diabetes Mellitus. ADA recommended reference range Performed By: #### B MP ####[facility] [id number] [place] [address] [facility] Hematocrit Auto (Bld) [Volum e fraction]Ordered By: Brook Huddleston on 12-14-2024 Hematocrit (Bld) [Volume fraction] Hematocrit [Volume Fraction] of Blood by Automated count Low 38.8-50.0 [facility] Hemoglobin [Mass/volume] in BloodOrdered By: Brook Huddleston on 12-14-2024 Hemoglobin (Bld) [Mass/Vol] Hemoglobin [Mass/volume] in Blood Low 13.0-17.0 [facility] Leukocytes [#/volume] correc lizbet for nucleated erythrocytes in Blood by Automated counOrdered By: Brook Huddleston on 12-14-2024 WBC corrected for nucl RBC Auto (Bld) [#/Vol] Leukocytes [#/volume] corrected for nucleated erythrocytes in Blood by Automated coun 4.1-10.5 [facility] Lymphocytes Auto (Bld) [#/Vo l]Ordered By: Brook Huddleston on 12-14-2024 Lymphocytes (Bld) [#/Vol] Lymphocytes [#/volume] in Blood by Automated count 1.00-4.8 [facility] Lymphocytes/100 WBC Auto (Bl d)Ordered By: Brook Huddleston on 12-14-2024 Lymphocytes/100 WBC (Bld) Lymphocytes/100 leukocytes in Blood by Automated count . [facility] MCH Auto (RBC) [Entitic mass ]Ordered By: Brook Huddelston on 12-14-2024 MCH (RBC) [Entitic mass] MCH [Entitic mass] by Automated count High 27.5-35.2 [facility] MCHC Auto (RBC) [Mass/Vol]Or dered By: Brook Huddleston on 12-14-2024 MCHC (RBC) [Mass/Vol] MCHC [Mass/volume] by Automated count 32.5-35.6 [facility] MCV Auto (RBC) [Entitic vol] Ordered By: Brook Huddleston on 12-14-2024 MCV (RBC) [Entitic vol] MCV [Entitic vol ume] by Automated count High 83.5-101 [facility] Monocytes Auto (Bld) [#/Vol] Ordered By: Brook Huddleston on 12-14-2024 Monocytes (Bld) [#/Vol] Automated blood monocyte count 0.0-0.8 [facility] Monocytes/100 WBC Auto (Bld) Ordered By: Brook Huddleston on 12-14-2024 Monocytes/100 WBC (Bld) Automated monocyte % . [facility] Neutrophils Auto (Bld) [#/Vo l]Ordered By: Brook Huddleston on 12-14-2024 Neutrophils (Bld) [#/Vol] Neutrophils [#/volume] in Blood by Automated count 1.8-7.7 [facility] Neutrophils/100 WBC Auto (Bl d)Ordered By: Brook Huddleston on 12-14-2024 Neutrophils/100 WBC (Bld) Automated neutrophil % . [facility] No Panel InformationOrdered By: Orquidea Cortez on 12-14-2024 Estimated GFR (CKD-EPI) 30.217 mL/Min [facility] Creatinine Clearance (Chem N/A [facility] 30.217 mL/Min [facility] N/A [facility] Nucleated erythrocytes [Pres ence] in Blood by Automated countOrdered By: Brook Huddleston on 12-14-2024 Nucleated RBC Auto Ql (Bld) Nucleated erythrocytes [Presence] in Blood by Automated count 0-0.5 [facility] Platelet mean volume Auto (B ld) [Entitic vol]Ordered By: Brook Huddleston on 12-14-2024 Platelet mean volume (Bld) [Entitic vol] Platelet mean volume [Entitic volume] in Blood by Automated count 6.6-10.1 [facility] Platelets Auto (Bld) [#/Vol] Ordered By: Brook Huddleston on 12-14-2024 Platelets (Bld) [#/Vol] Platelets [#/vol ume] in Blood by Automated count 150-450 [facility] Potassium [Moles/volume] in Serum or PlasmaOrdered By: Orquidea Cortez on 12-14-2024 Potassium [Moles/Vol] Potassium [Moles/v olume] in Serum or Plasma 3.5-5.1 [facility] Potassium [Moles/Vol] 4.2 mmol/L Normal 3.5-5.1 [facility] Comment on above: Performed By: #### B MP ####[place] [id number] RBC Auto (Bld) [#/Vol]Ordere d By: Brook Huddleston on 12-14-2024 RBC (Bld) [#/Vol] Erythrocytes [#/volu me] in Blood by Automated count Low 3.90-5.60 [facility] Serum or plasma anion gap de terminationOrdered By: Orquidea Cortez on 12-14-2024 Anion gap [Moles/Vol] Serum or plasma an ion gap determination 6.0-15.0 [facility] Anion gap [Moles/Vol] 10.9 mmol/L Normal 6.0-15.0 [facility] Comment on above: Performed By: #### B MP ####[address] Sodium [Moles/volume] in Ser um or PlasmaOrdered By: Orquidea Cortez on 12-14-2024 Sodium [Moles/Vol] Sodium [Moles/volume ] in Serum or Plasma 136-145 [facility] Sodium [Moles/Vol] 140 mmol/L Normal 136-145 [facility] Comment on above: Performed By: #### B MP ####[address] Urea nitrogen [Mass/volume] in Serum or PlasmaOrdered By: Orquidea Cortez on 12-14-2024 Urea nitrogen [Mass/Vol] Urea nitrogen [Mass/volume] in Serum or Plasma High 7-25 [facility] Urea nitrogen [Mass/Vol] 30 mg/dL High 7-25 [facility] Comment on above: Performed By: #### B MP ####[address] WBC Auto (Bld) [#/Vol]Ordere d By: Brook Huddleston on 12-14-2024 WBC (Bld) [#/Vol] Leukocytes [#/volume ] in Blood by Automated count 4.1-10.5 [facility] Ambulatory Visit Summaryon 0 11-17-2024 Ambulatory Visit [...] HEATH MD This Is Your Medications List methenamine (methenamine [...] Pratima Reno PA-C Where: [facility] [address] [place] [address]- You Need to Schedule the Following Appointments Follow Up with Diego RICKS, OUSMANE Bell, URO When: Where: Medications What How Much [...] bladder emp (more content not included)... Normal [facility] Urology Office/Clinic Noteon 11-17-2024 Urology Office/Clinic [...] 08/27/22 - Incidental finding of prostatic adenocarcinoma. [place] 7 (3+4), GG2. Only 6-10% of [place] 4 present. 7 of 78 prostate chips involved. No adverse pathology. Decipher testing 08/27/22 - High genomic risk. Not ideal surgical candidate (prostatectomy) due to age, comorbidities. MRI prostate 11/11/22 [facility] - Prostate volume [...] 4. Uret (more content not included)... Normal [facility] Comment on above: Result Comment: Elec tronically Signed By: Orquidea Cortez MD\.br\Date and Time Signed: 11/17/24 11:21 EDT\.br\Electronically Co-Signed By: Aleah Starr.br\Date and Time Co-Signed: 11/17/24 11:05 EDT A1C with Estimated Average Barron cade 11-11-2024 Glucose [Mass/Vol] 203 mg/dL Normal [facility] Comment on above: Result Comment: PERF ORMED BY:[address] [place], [place] [phone] MEDICAL DIRECTORDOMINIC FRANK M.D. Performed By: #### C MP, LIPID, A1C WT eA, TSH3, T4F ####[address] [address] [facility] Alanine aminotransferase [En zymatic activity/volume] in Serum or PlasmaOrdered By: Helen Heath on 11-11-2024 ALT [Catalytic activity/Vol] Alanine aminotransferase [Enzymatic activity/volume] in Serum or Plasma [facility] ALT [Catalytic activity/Vol] 25 U/L Normal [facility] Comment on above: Performed By: #### C MP, LIPID, A1C WT eA, TSH3, T4F ####[address] [address] [facility] Albumin [Mass/volume] in Ser um or Plasma by Bromocresol green (BCG) dye binding methoOrdered By: Helen Heath on 11-11-2024 Albumin BCG dye [Mass/Vol] Albumin [Mass/volume] in Serum or Plasma by Bromocresol green (BCG) dye binding metho 3.5-5.7 [facility] Albumin BCG dye [Mass/Vol] 3.7 g/dL 3.5-5.7 [facility] Alkaline phosphatase [Enzyma tic activity/volume] in Serum or PlasmaOrdered By: Helen Heath on 11-11-2024 ALP [Catalytic activity/Vol] Alkaline phosphatase [Enzymatic activity/volume] in Serum or Plasma High 34-104 [facility] ALP [Catalytic activity/Vol] 129 U/L High 34-104 [facility] Comment on above: Performed By: #### C MP, LIPID, A1C WT eA, TSH3, T4F ####[address] [address] [facility] Aspartate aminotransferase [ Enzymatic activity/volume] in Serum or PlasmaOrdered By: Helen Heath on 11-11-2024 AST [Catalytic activity/Vol] Aspartate aminotransferase [Enzymatic activity/volume] in Serum or Plasma [facility] AST [Catalytic activity/Vol] 14 U/L Normal [facility] Comment on above: Performed By: #### C MP, LIPID, A1C [facility], TSH3, T4F ####[facility] [id number] [place] [id number] [facility] Basophils Auto (Bld) [#/Vol] Ordered By: Brook Huddleston on 11-11-2024 Basophils (Bld) [#/Vol] Automated basophil count 0.0-0.2 [facility] Basophils/100 WBC Auto (Bld) Ordered By: Brook Huddleston on 11-11-2024 Basophils/100 WBC (Bld) Automated basophil % . [facility] Bilirubin.total [Mass/volume ] in Serum or PlasmaOrdered By: Helen Heath on 11-11-2024 Bilirubin [Mass/Vol] Bilirubin.total [Mass/volume] in Serum or Plasma 0.3-1.0 [facility] Bilirubin [Mass/Vol] 0.4 mg/dL Normal 0.3-1.0 [facility] Comment on above: Performed By: #### C MP, LIPID, A1C [facility], TSH3, T4F ####[facility] [id number] [place] [address] [facility] Blood estimated average gluc ose determination by estimation from glycated hemoglobinOrdered By: Helen Heath on 11-11-2024 Average glucose Estimated from glycated hemoglobin (Bld) [Mass/Vol] Glucose mean value [Mass/volume] in Blood Estimated from glycated hemoglobin [facility] Average glucose Estimated from glycated hemoglobin (Bld) [Mass/Vol] 203 mg/dL [facility] C Urineon 11-11-2024 Bacteria identified Cx Nom [...] This test was performed at: [facility], [address] [place] [address], [id number]- , [place], Normal [facility] Comment on above: Performed By: #### 2 [id number] #### [facility] [address] [place] [id number] CBC W Auto Differential pane l (Bld)on 11-11-2024 Basophils (Bld) [#/Vol] 0 10*3/uL 0.0 - 0.2 10*3/uL [facility] Basophils/100 WBC Manual cnt (Syn fld) 0.4 % . [facility] Eosinophils (Bld) [#/Vol] 0.3 10*3/uL 0.0 - 0.45 10*3/uL [facility] Eosinophils/100 WBC Manual cnt (Syn fld) 3.2 % . [facility] Erythrocyte distribution width (RBC) [Ratio] 15.9 % High 12.0 - 14.8 % [facility] Hematocrit (Bld) [Volume fraction] 31.6 % Low 38.8 - 50.0 % [facility] Hemoglobin (Bld) [Mass/Vol] 10.7 g/dL Low 13.0 - 17.0 g/dL [facility] Interpretation and review of laboratory results Abnormal [facility] Lymphocytes (Bld) [#/Vol] 1.7 10*3/uL 1.00 - 4.8 10*3/uL [facility] Lymphocytes/100 WBC Manual cnt (Syn fld) 16.5 % . [facility] MCH (RBC) [Entitic mass] 35.2 pg 27.5 - 35.2 pg [facility] MCHC (RBC) [Mass/Vol] 33.8 g/dL 32.5 - 35.6 g/dL [facility] MCV (RBC) [Entitic vol] 104 fL [...] [#/Vol] 262 10*3/uL 150 - 450 10*3/uL [facility] RBC LM.HPF (Urine sed) [#/Area] 3.04 10*6/uL Low 3.90 - 5.60 10*6/uL [facility] WBC (Bld) [#/Vol] 10.3 10*3/uL 4.1 - 10.5 10*3/uL [facility] WBC LM.HPF (Urine sed) [#/Area] 10.3 10*3/uL 4.1 - 10.5 10*3/uL [facility] Calcium [Mass/volume] in Ser um or PlasmaOrdered By: Helen Heath on 11-11-2024 Calcium [Mass/Vol] Calcium [Mass/volume ] in Serum or Plasma Low 8.6-10.3 [facility] Calcium [Mass/Vol] 8.5 mg/dL Low 8.6-10.3 [facility] Comment on above: Performed By: #### C MP, LIPID, A1C WTH eA, TSH3, T4F ####[facility] [id number] Carbon dioxide, total [Moles /volume] in Serum or PlasmaOrdered By: Helen Heath on 11-11-2024 CO2 [Moles/Vol] Carbon dioxide, tota l [Moles/volume] in Serum or Plasma Low 21.0-31.0 [facility] CO2 [Moles/Vol] 20.6 mmol/L Low 21.0-31.0 [facility] Comment on above: Performed By: #### C MP, LIPID, A1C WT eA, TSH3, T4F ####[facility] [id number] [place] [address] [place] Chloride [Moles/volume] in S valeria or PlasmaOrdered By: Helen Heath on 11-11-2024 Chloride [Moles/Vol] Chloride [Moles/vol ume] in Serum or Plasma High 98-107 [facility] Chloride [Moles/Vol] 112 mmol/L High 98-107 [facility] Comment on above: Performed By: #### C MP, LIPID, A1C WT eA, TSH3, T4F ####[facility] [id number] [place] [id number] [place] Cholesterol [Mass/volume] in Serum or PlasmaOrdered By: Helen Heath on 11-11-2024 Cholesterol [Mass/Vol] Cholesterol [Mass /volume] in Serum or Plasma Low 140-200 [facility] Comment on above: Chol less than 200 m g/dl low riskChol 201-239 mg/dl borderline riskChol 240 mg/dl and greater high risk Cholesterol [Mass/Vol] 108 mg/dL Low 140-200 [facility] Comment on above: Result Comment: Chol less than 200 mg/dl low risk Chol 201-239 mg/dl borderline risk Chol 240 mg/dl and greater high risk Performed By: #### C MP, LIPID, A1C WTH eA, TSH3, T4F ####[facility] [id number] [place] [id number] [place] Cholesterol in HDL [Mass/vol ume] in Serum or PlasmaOrdered By: Helen Heath on 11-11-2024 Cholesterol in HDL [Mass/Vol] Serum or plasma high density lipoprotein (HDL) cholesterol measurement [facility] Comment on above: HDL CHOL ATP-III CLA SSIFICATION Cardiovascular RiskHDL > or equal to 60 mg/dL LOWHDL < 40 mg/dL HIGH Cholesterol in HDL [Mass/Vol] 33 mg/dL Normal [facility] Comment on above: Result Comment: HDL CHOL ATP-III CLASSIFICATION Cardiovascular Risk HDL > or equal to 60 mg/dL LOW HDL < 40 mg/dL HIGH Performed By: #### C MP, LIPID, A1C WTH eA, TSH3, T4F ####[place] [id number] [facility] Cholesterol in LDL Calc [Mas s/Vol]Ordered By: Helen Heath on 11-11-2024 Cholesterol in LDL [Mass/Vol] Cholesterol in LDL [Mass/volume] in Serum or Plasma by calculation 0-100 [facility] Comment on above: LDL ATP III CLASSIFI CATIONLDL less than 100 mg/dL OptimalLDL 100-129 mg/dL Near or above optimalLDL 130-159 mg/dL Borderline highLDL 160-189 mg/dL HighLDL greater than 189 mg/dL Very high Cholesterol in LDL [Mass/Vol] 59 mg/dL 0-100 [facility] Cholesterol in VLDL Calc [Ma ss/Vol]Ordered By: Helen Heath on 11-11-2024 Cholesterol in VLDL [Mass/Vol] Cholesterol in VLDL [Mass/volume] in Serum or Plasma by calculation [facility] Cholesterol in VLDL [Mass/Vol] 15 mg/dL [facility] Complete Blood Count Auto Di ffon 11-11-2024 Basophils (Bld) [#/Vol] 0.0 10*3/uL Normal 0.0-0.2 [facility] Comment on above: Result Comment: PERF ORMED BY:[address] [place], [place] [id number] MEDICAL DIRECTORDOMINIC FRANK M.D. Performed By: #### C BC ####[place] [id number] [facility] Basophils/100 WBC (Bld) 0.4 % Normal . T [facility] Comment on above: Performed By: #### C BC ####[place] [id number] [place] Eosinophils (Bld) [#/Vol] 0.3 10*3/uL Normal 0.0-0.45 [facility] Comment on above: Performed By: #### C BC ####[place] [id number] [place] Eosinophils/100 WBC (Bld) 3.2 % Normal . [facility] Comment on above: Performed By: #### C BC ####[address] Erythrocyte distribution width (RBC) [Ratio] 15.9 % High 12.0-14.8 [facility] Comment on above: Performed By: #### C BC ####[address] Hematocrit (Bld) [Volume fraction] 31.6 % Low 38.8-50.0 [facility] Comment on above: Performed By: #### C BC ####[address] Hemoglobin (Bld) [Mass/Vol] 10.7 g/dL Low 13.0-17.0 [facility] Comment on above: Performed By: #### C BC ####[address] Lymphocytes (Bld) [#/Vol] 1.7 10*3/uL Normal 1.00-4.8 [facility] Comment on above: Performed By: #### C BC ####[address] Lymphocytes/100 WBC (Bld) 16.5 % Normal . [facility] Comment on above: Performed By: #### C BC ####[address] MCH (RBC) [Entitic mass] 35.2 pg Normal 27.5-35.2 [facility] Comment on above: Performed By: #### C BC ####[address] MCV (RBC) [Entitic vol] 104.0 fL High 83.5-101 T [facility] Comment on above: Performed By: #### C BC ####[address] Mean Corpuscular HGB Conc 33.8 g/dL Normal 32.5-35.6 [facility] Comment on above: Performed By: #### C BC ####[place] [id number] [facility] Monocytes (Bld) [#/Vol] 0.5 10*3/uL Normal 0.0-0.8 [facility] Comment on above: Performed By: #### C BC ####[place] [id number] [facility] Monocytes/100 WBC (Bld) 5.3 % Normal . T [facility] Comment on above: Performed By: #### C BC ####[place] [id number] [facility] Neutrophils (Bld) [#/Vol] 7.7 10*3/uL Normal 1.8-7.7 [facility] Comment on above: Performed By: #### C BC ####[place] [id number] [facility] Neutrophils/100 WBC (Bld) 74.6 % Normal . [facility] Comment on above: Performed By: #### C BC ####[place] [id number] [facility] NRBC% 0.0 /100{WBC} Normal 0-0.5 [facility] Comment on above: Performed By: #### C BC ####[place] [id number] [facility] Platelet mean volume (Bld) [Entitic vol] 7.8 fL Normal 6.6-10.1 [facility] Comment on above: Performed By: #### C BC ####[place] [id number] [facility] Platelets (Bld) [#/Vol] 262 10*3/uL Normal 150-450 [facility] Comment on above: Performed By: #### C BC ####[place] [id number] [facility] RBC (Bld) [#/Vol] 3.04 10*6/uL Low 3.90-5.60 [facility] Comment on above: Performed By: #### C BC ####[address] WBC (Bld) [#/Vol] 10.3 10*3/uL Normal 4.1-10.5 [facility] Comment on above: Performed By: #### C BC ####[address] Comprehensive Metabolic Pane mana 11-11-2024 Albumin [Mass/Vol] 3.7 g/dL Normal 3.5-5.7 [facility] Comment on above: Performed By: #### C MP, LIPID, A1C WTH eA, TSH3, T4F ####[address] Estimated GFR 16.571 mL/Min Normal [facility] Comment on above: Performed By: #### C MP, LIPID, A1C WTH eA, TSH3, T4F ####[address] Creatinine [Mass/volume] in Serum or PlasmaOrdered By: Helen Heath on 11-11-2024 Creatinine [Mass/Vol] Creatinine [Mass/v olume] in Serum or Plasma High 0.70-1.30 [facility] Creatinine [Mass/Vol] 3.58 mg/dL High 0.70-1.30 [facility] Comment on above: Performed By: #### C MP, LIPID, A1C WTH eA, TSH3, T4F ####[address] Eosinophils Auto (Bld) [#/Vo l]Ordered By: Brook Huddleston on 11-11-2024 Eosinophils (Bld) [#/Vol] Automated eosinophil count 0.0-0.45 [facility] Eosinophils/100 WBC Auto (Bl d)Ordered By: Brook Huddleston on 11-11-2024 Eosinophils/100 WBC (Bld) Automated eosinophil % . [facility] Erythrocyte distribution wid th Auto (RBC) [Ratio]Ordered By: Brook Huddleston on 11-11-2024 Erythrocyte distribution width (RBC) [Ratio] Erythrocyte distribution width [Ratio] by Automated count High 12.0-14.8 [facility] Globulin Calc (S) [Mass/Vol] Ordered By: Helen Heath on 11-11-2024 Globulin (S) [Mass/Vol] Serum globulin m easurement by calculation (mass/volume) [facility] Glucose [Mass/volume] in Ser um or PlasmaOrdered By: Helen Heath on 11-11-2024 Glucose [Mass/Vol] Glucose [Mass/volume ] in Serum or Plasma 70-100 [facility] Comment on above: ADA recommended refe rence rangeRandom Glucose Reference Range is dependent on time and content of last meal. Glucose of more than 200 mg/dL in a nonstressed, ambulatory subject supports the diagnosis of Diabetes Mellitus. Glucose [Mass/Vol] 73 mg/dL Normal 70-100 [facility] Comment on above: Result Comment: [place] om Glucose Reference Range is dependent on time and content of last meal. Glucose of more than 200 mg/dL in a nonstressed, ambulatory subject supports the diagnosis of Diabetes Mellitus. ADA recommended reference range Performed By: #### C MP, LIPID, A1C WTH eA, TSH3, T4F ####[facility] [id number] [address] Hematocrit Auto (Bld) [Volum e fraction]Ordered By: Brook Huddleston on 11-11-2024 Hematocrit (Bld) [Volume fraction] Hematocrit [Volume Fraction] of Blood by Automated count Low 38.8-50.0 [facility] Hemoglobin A1c/Hemoglobin.to nat in BloodOrdered By: Helen Heath on 11-11-2024 HbA1c (Bld) [Mass fraction] Hemoglobin A1c percentage High 4.3-5.6 [facility] Comment on above: Increased risk for d iabetes: 5.7 - 6.4diabetes: >6.4glycemic control for adults with diabetes: <7.0 HbA1c (Bld) [Mass fraction] 8.7 % High 4.3-5.6 [facility] Comment on above: Result Comment: Incr eased risk for diabetes: 5.7 - 6.4 diabetes: >6.4 glycemic control for adults with diabetes: <7.0 Performed By: #### C MP, LIPID, A1C WTH eA, TSH3, T4F ####[facility] [place] [address] [facility] Hemoglobin [Mass/volume] in BloodOrdered By: Brook Huddleston on 11-11-2024 Hemoglobin (Bld) [Mass/Vol] Hemoglobin [Mass/volume] in Blood Low 13.0-17.0 [facility] Leukocytes [#/volume] correc lizbet for nucleated erythrocytes in Blood by Automated counOrdered By: Brook Huddleston on 11-11-2024 WBC corrected for nucl RBC Auto (Bld) [#/Vol] Leukocytes [#/volume] corrected for nucleated erythrocytes in Blood by Automated coun 4.1-10.5 [facility] Lipid Panelon 11-11-2024 LDL Cholesterol,Calculated 59 mg/dL Normal 0-100 [facility] Comment on above: Result Comment: LDL ATP III CLASSIFICATION LDL less than 100 mg/dL Optimal LDL 100-129 mg/dL Near or above optimal LDL 130-159 mg/dL Borderline high LDL 160-189 mg/dL High LDL greater than 189 mg/dL Very high Performed By: #### C MP, LIPID, A1C [facility], TSH3, T4F ####[place] [id number] [place] [address] [facility] Triglyceride w/Reflex 79 mg/dL Normal 0-149 [facility] Comment on above: Result Comment: TRIG ATP III CLASSIFICATION TRIG less than 150 mg/dL Normal TRIG 150-199 mg/dL Borderline high TRIG 200-500 mg/dL High TRIG greater than 500 mg/dL Very high Standard traceable to the Center for Disease Conrtrol and Prevention (CDC) test method. Performed By: #### C MP, LIPID, A1C [facility], TSH3, T4F ####[place] [id number] [place] [address] [facility] VLDL CHOLESTEROL 15 mg/dL Normal [facility] Comment on above: Performed By: #### C MP, LIPID, A1C [facility], TSH3, T4F ####[facility] [place] [address] [facility] Lymphocytes Auto (Bld) [#/Vo l]Ordered By: Brook Huddleston on 11-11-2024 Lymphocytes (Bld) [#/Vol] Lymphocytes [#/volume] in Blood by Automated count 1.00-4.8 [facility] Lymphocytes/100 WBC Auto (Bl d)Ordered By: Brook Huddleston on 11-11-2024 Lymphocytes/100 WBC (Bld) Lymphocytes/100 leukocytes in Blood by Automated count . [facility] MCH Auto (RBC) [Entitic mass ]Ordered By: Brook Huddleston on 11-11-2024 MCH (RBC) [Entitic mass] MCH [Entitic mass] by Automated count 27.5-35.2 [facility] MCHC Auto (RBC) [Mass/Vol]Or dered By: Brook Huddleston on 11-11-2024 MCHC (RBC) [Mass/Vol] MCHC [Mass/volume] by Automated count 32.5-35.6 [facility] MCV Auto (RBC) [Entitic vol] Ordered By: Brook Huddleston on 11-11-2024 MCV (RBC) [Entitic vol] MCV [Entitic vol ume] by Automated count High 83.5-101 [facility] Monocytes Auto (Bld) [#/Vol] Ordered By: Brook Huddleston on 11-11-2024 Monocytes (Bld) [#/Vol] Automated blood monocyte count 0.0-0.8 [facility] Monocytes/100 WBC Auto (Bld) Ordered By: Brook Huddleston on 11-11-2024 Monocytes/100 WBC (Bld) Automated monocyte % . [facility] Neutrophils Auto (Bld) [#/Vo l]Ordered By: Brook Huddleston on 11-11-2024 Neutrophils (Bld) [#/Vol] Neutrophils [#/volume] in Blood by Automated count 1.8-7.7 [facility] Neutrophils/100 WBC Auto (Bl d)Ordered By: Brook Huddleston on 11-11-2024 Neutrophils/100 WBC (Bld) Automated neutrophil % . [facility] No Panel InformationOrdered By: Helen Heath on 11-11-2024 Estimated GFR (CKD-EPI) 16.571 mL/Min [facility] Creatinine Clearance (Chem N/A [facility] 16.571 mL/Min [facility] N/A [facility] Nucleated erythrocytes [Pres ence] in Blood by Automated countOrdered By: Brook Huddleston on 11-11-2024 Nucleated RBC Auto Ql (Bld) Nucleated erythrocytes [Presence] in Blood by Automated count 0-0.5 [facility] Platelet mean volume Auto (B ld) [Entitic vol]Ordered By: Brook Huddleston on 11-11-2024 Platelet mean volume (Bld) [Entitic vol] Platelet mean volume [Entitic volume] in Blood by Automated count 6.6-10.1 [facility] Platelets Auto (Bld) [#/Vol] Ordered By: Brook Huddleston on 11-11-2024 Platelets (Bld) [#/Vol] Platelets [#/vol ume] in Blood by Automated count 150-450 [facility] Potassium [Moles/volume] in Serum or PlasmaOrdered By: Helen Heath on 11-11-2024 Potassium [Moles/Vol] Potassium [Moles/v olume] in Serum or Plasma 3.5-5.1 [facility] Potassium [Moles/Vol] 4.6 mmol/L Normal 3.5-5.1 [facility] Comment on above: Performed By: #### C MP, LIPID, A1C WTH eA, TSH3, T4F ####[facility] [id number] [address] Protein [Mass/volume] in Ser um or PlasmaOrdered By: Helen Heath on 11-11-2024 Protein [Mass/Vol] Protein [Mass/volume ] in Serum or Plasma 6.4-8.9 [facility] Protein [Mass/Vol] 6.8 g/dL Normal 6.4-8.9 [facility] Comment on above: Performed By: #### C MP, LIPID, A1C WTH eA, TSH3, T4F ####[facility] [id number] [place] [address] [facility] RBC Auto (Bld) [#/Vol]Ordere d By: Brook Huddleston on 11-11-2024 RBC (Bld) [#/Vol] Erythrocytes [#/volu me] in Blood by Automated count Low 3.90-5.60 [facility] Serum globulin measurement b y calculation (mass/volume)Ordered By: Helen Heath on 11-11-2024 Globulin (S) [Mass/Vol] 3.1 g/dL Normal F [facility] Comment on above: Performed By: #### C MP, LIPID, A1C [facility] eA, TSH3, T4F ####[facility] Serum or plasma albumin/glob ulin mass ratioOrdered By: Helen Heath on 11-11-2024 Albumin/Globulin [Mass ratio] Serum or plasma albumin/globulin mass ratio [facility] Albumin/Globulin [Mass ratio] 1.2 {ratio} Normal [facility] Comment on above: Performed By: #### C MP, LIPID, A1C [facility] eA, TSH3, T4F ####[place] [id number] Serum or plasma anion gap de terminationOrdered By: Helen Heath on 11-11-2024 Anion gap [Moles/Vol] Serum or plasma an ion gap determination 6.0-15.0 [facility] Anion gap [Moles/Vol] 13.0 mmol/L Normal 6.0-15.0 [facility] Comment on above: Performed By: #### C MP, LIPID, A1C WT eA, TSH3, T4F ####[place] [id number] Serum or plasma total choles terol/high density lipoprotein (HDL) cholesterol mass ratOrdered By: Helen Heath on 11-11-2024 Cholesterol.total/Remedios sterol in HDL [Mass ratio] Serum or plasma total cholesterol/high density lipoprotein (HDL) cholesterol mass rat <5.0 [facility] Cholesterol.total/Remedios sterol in HDL [Mass ratio] 3.3 {ratio} Normal <5.0 [facility] Comment on above: Performed By: #### C MP, LIPID, A1C [facility] eA, TSH3, T4F ####[place] [address] Sodium [Moles/volume] in Ser um or PlasmaOrdered By: Helen Heath on 11-11-2024 Sodium [Moles/Vol] Sodium [Moles/volume ] in Serum or Plasma 136-145 [facility] Sodium [Moles/Vol] 141 mmol/L Normal 136-145 [facility] Comment on above: Performed By: #### C MP, LIPID, A1C WT eA, TSH3, T4F ####[facility] [place] [address] [facility] Thyrotropin [Units/volume] i n Serum or PlasmaOrdered By: Helen Heath on 11-11-2024 TSH Qn Thyrotropin [Units/v olume] in Serum or Plasma Low 0.45-5.33 [facility] TSH Qn 0.11 m[IU]/L Low 0.45-5.33 [facility] Comment on above: Result Comment: PERF ORMED BY:[address] [place], [place] [id number] MEDICAL DIRECTORDOMINIC FRANK M.D. Performed By: #### C MP, LIPID, A1C WT eA, TSH3, T4F ####[place] [address] [place] [id number] [facility] Thyroxine (T4) free [Mass/vo lume] in Serum or PlasmaOrdered By: Helen Heath on 11-11-2024 Free T4 [Mass/Vol] Thyroxine (T4) free [Mass/volume] in Serum or Plasma High 0.61-1.12 [facility] Free T4 [Mass/Vol] 1.13 ng/dL High 0.61-1.12 [facility] Comment on above: Performed By: #### C MP, LIPID, A1C WTH eA, TSH3, T4F ####[facility] [place] [id number] [facility] Triglyceride [Mass/volume] i n Serum or PlasmaOrdered By: Helen Heath on 11-11-2024 Triglyceride [Mass/Vol] Triglyceride [Ma ss/volume] in Serum or Plasma 0-149 [facility] Comment on above: TRIG ATP III CLASSIF ICATIONTRIG less than 150 mg/dL NormalTRIG 150-199 mg/dL Borderline highTRIG 200-500 mg/dL High TRIG greater than 500 mg/dL Very highStandard traceable to the Center for Disease Conrtrol and Prevention (CDC) test method. Triglyceride [Mass/Vol] 79 mg/dL 0-149 [facility] Urea nitrogen [Mass/volume] in Serum or PlasmaOrdered By: Helen Heath on 11-11-2024 Urea nitrogen [Mass/Vol] Urea nitrogen [Mass/volume] in Serum or Plasma High 7-25 [facility] Urea nitrogen [Mass/Vol] 52 mg/dL High -25 [facility] Comment on above: Performed By: #### C MP, LIPID, A1C WTH eA, TSH3, T4F ####[facility] [id number] [place] [address] [facility] WBC Auto (Bld) [#/Vol]Ordere d By: Brook Huddleston on 11-11-2024 WBC (Bld) [#/Vol] Leukocytes [#/volume ] in Blood by Automated count 4.1-10.5 [facility] Urine Cultureon 11-09-2024 Bacteria identified Cx Nom (U) ORGANISM: Jessica albicans (O:CANALB) [place] Count >100,000 PERFORMED BY: [facility] [address] [place] [address] PATHOLOGIST NUCLEAR STATION OPERATOR DOMINIC FRANK M.D. Normal [facility] Comment on above: Performed By: #### C UU ####[facility] [id number] [place] [address] [facility] Urine cultureOrdered By: Ashlie Cortez on 11-09-2024 Bacteria identified Cx Nom (U) Abnormal [facility] Ambulatory Visit Summaryon 0 11-07-2024 Ambulatory Visit Summary Ambulatory Visit Summary PATSY CUNNINGHAM :1945 Visit Date:11/07/2024 Ambulatory Visit Instructions Your [...] Pratima Reno PA-C Where: [facility] [address] [place] [address]- Medications What How Much When Why Instructions [...] for choosing us for your care. Normal [facility] Urine Cultureon 10-17-2024 Bacteria identified Cx Nom (U) Normal [facility] Comment on above: Performed By: #### C UU ####[facility] [address] [place] [address] [facility] Urine cultureOrdered By: Ashlie Cortez on 10-17-2024 Bacteria identified Cx Nom (U) Abnormal [facility] Urology Office/Clinic Noteon 10-03-2024 Urology Office/Clinic Note Urology Office/Clinic Note HPI Staff SPT exchange, discuss further UTI prevention History of Present Illness I have reviewed and verified the staff HPI to be accurate for this encounter. Portions of this record may have been created with voice recognition artificial intelligence software, specifically [employer], [employer] and or [employer]. Substitutions may have occurred due to the [...] complete irrigations. Discussed with the patient starting [id number] UTI prevention supplements including d-mannose, Cranberry and [...] understanding. Urine pH 5.5 eGFR 09/27/23 - 30.726 does follow w/ Dr Barrett, if eGFR declines <30, will need to stop methenamine -start methenamine 1g BID, rx sent to pharm Ordered: methenamine, 1 gm = 1 tab(s), Oral, BID, # 60 tab(s), Refills(s) 6, Pharmacy: [id number], cm, 08/31/24 11:19:00 EST, Height/Length Dosing, [...] Smokeless T (more content not included)... Normal [facility] Comment on above: Result Comment: Elec tronically Signed By: CARLEY Damian APRN, Makayla Soriano\.br\Date and Time Signed: 10/03/24 16:19 EST IMMUNOFIXATION, (JOSE C), URINE on 09-29-2024 IMMUNOFIXATION, (JOSE C), URINE Comment: . [facility] Comment on above: Presence of monoclon al protein is unclear at this time. Suggest repeat in 3 to 6 months if clinically indicated. Performed at: [address] [id number] Director Of Manufacturing: Melchor Agrawal PhD, Phone: [phone] No Panel Informationon 09-29 [facility] PROTEIN ELECTRO, RANDOM URIN Yovany 09-29-2024 ALBUMIN, URINE 44.5 % . [facility] [id number], URINE 3 % . [facility] [id number], URINE 10.8 % . [facility] BETA GLOBULIN, URINE 19.6 % . [facility] GAMMA GLOBULIN, URINE 22.1 % . [facility] M-SPIKE % Comment: Not Observed [facility] Comment on above: UPE shows an asymmet rical gamma. Refer to urine JOSE C for further evaluation. PLEASE NOTE: Comment . [facility] Comment on above: Protein electrophore sis scan will follow via computer, mail, or technical documentation specialist delivery. Performed at: [facility] [id number] Director Of Manufacturing: Melchor Agrawal PhD, Phone: [phone] Protein (U) [Mass/Vol] 170.1 mg/dL Not Estab. N [facility] 24 hour urine albumin/total protein ratio by electrophoresisOrdered By: Brook Huddleston on 09-27-2024 Albumin Elph (24H U) [Mass fraction] Albumin/Protein.total in 24 hour Urine by Electrophoresis . [facility] Albumin Elph (24H U) [Mass fraction] 44.5 % . [facility] 24 hour urine gamma globulin /total protein ratio by electrophoresisOrdered By: Brook Huddleston on 09-27-2024 Gamma globulin Elph (24H U) [Mass fraction] Gamma globulin/Protein.total in 24 hour Urine by Electrophoresis . [facility] Gamma globulin Elph (24H U) [Mass fraction] 22.1 % . [facility] 24 hour urine protein monocl onal/total protein by electrophoresisOrdered By: Brook Huddleston on 09-27-2024 Protein.monoclonal Elph (24H U) [Mass fraction] Protein.monoclonal/Protein .total in 24 hour Urine by Electrophoresis Not Observed [facility] Comment on above: UPE shows an asymmet rical gamma. Refer to urine JOSE C for further evaluation. Protein.monoclonal Elph (24H U) [Mass fraction] Comment: % Not Observed [facility] Comment on above: UPE shows an asymmet rical gamma. Refer to urine JOSE C for further evaluation. Alanine aminotransferase [En zymatic activity/volume] in Serum or PlasmaOrdered By: Price Crain on 09-27-2024 ALT [Catalytic activity/Vol] Alanine aminotransferase [Enzymatic activity/volume] in Serum or Plasma [facility] Albumin [Mass/volume] in Ser um or Plasma by Bromocresol green (BCG) dye binding methoOrdered By: Price Crain on 09-27-2024 Albumin BCG dye [Mass/Vol] Albumin [Mass/volume] in Serum or Plasma by Bromocresol green (BCG) dye binding metho 3.5-5.7 [facility] Alkaline phosphatase [Enzyma tic activity/volume] in Serum or PlasmaOrdered By: Price Crain on 09-27-2024 ALP [Catalytic activity/Vol] Alkaline phosphatase [Enzymatic activity/volume] in Serum or Plasma High 34-104 [facility] Aspartate aminotransferase [ Enzymatic activity/volume] in Serum or PlasmaOrdered By: Price Crain on 09-27-2024 AST [Catalytic activity/Vol] Aspartate aminotransferase [Enzymatic activity/volume] in Serum or Plasma 13-39 [facility] Basophils Auto (Bld) [#/Vol] Ordered By: Price Crain on 09-27-2024 Basophils (Bld) [#/Vol] Automated basophil count 0.0-0.2 [facility] Basophils/100 WBC Auto (Bld) Ordered By: Price Crain on 09-27-2024 Basophils/100 WBC (Bld) Automated basophil % . [facility] Bilirubin.total [Mass/volume ] in Serum or PlasmaOrdered By: Price Crain on 09-27-2024 Bilirubin [Mass/Vol] Bilirubin.total [Mass/volume] in Serum or Plasma 0.3-1.0 [facility] Calcium [Mass/volume] in Ser um or PlasmaOrdered By: Price Crain on 09-27-2024 Calcium [Mass/Vol] Calcium [Mass/volume ] in Serum or Plasma 8.6-10.3 [facility] Carbon dioxide, total [Moles /volume] in Serum or PlasmaOrdered By: Price Crain on 09-27-2024 CO2 [Moles/Vol] Carbon dioxide, tota l [Moles/volume] in Serum or Plasma 21.0-31.0 [facility] Chloride [Moles/volume] in S valeria or PlasmaOrdered By: Price Crain on 09-27-2024 Chloride [Moles/Vol] Chloride [Moles/vol ume] in Serum or Plasma High 98-107 [facility] Complete Blood Count Auto Di ffon 09-27-2024 Basophils (Bld) [#/Vol] 0.0 10*3/uL Normal 0.0-0.2 [facility] Comment on above: Result Comment: PERF ORMED BY:[place] [address] [address] [place], [place] [id number] MEDICAL DIRECTORDOMINIC FRANK M.D. Performed By: #### C MP, CBC ####[address] Basophils/100 WBC (Bld) 0.1 % Normal . T dank [facility] Comment on above: Performed By: #### C MP, CBC ####[address] Eosinophils (Bld) [#/Vol] 0.3 10*3/uL Normal 0.0-0.45 [facility] Comment on above: Performed By: #### C MP, CBC ####[address] Eosinophils/100 WBC (Bld) 4.6 % Normal . [facility] Comment on above: Performed By: #### C MP, CBC ####[address] Erythrocyte distribution width (RBC) [Ratio] 17.0 % High 12.0-14.8 [facility] Comment on above: Performed By: #### C MP, CBC ####[address] Hematocrit (Bld) [Volume fraction] 31.1 % Low 38.8-50.0 [facility] Comment on above: Performed By: #### C MP, CBC ####[address] Hemoglobin (Bld) [Mass/Vol] 10.7 g/dL Low 13.0-17.0 [facility] Comment on above: Performed By: #### C MP, CBC ####[address] Lymphocytes (Bld) [#/Vol] 1.1 10*3/uL Normal 1.00-4.8 [facility] Comment on above: Performed By: #### C MP, CBC ####[address] Lymphocytes/100 WBC (Bld) 16.9 % Normal . [facility] Comment on above: Performed By: #### C MP, CBC ####[address] MCH (RBC) [Entitic mass] 36.0 pg High 27.5-35.2 [facility] Comment on above: Performed By: #### C MP, CBC ####[address] MCV (RBC) [Entitic vol] 104.9 fL High 83.5-101 [facility] Comment on above: Performed By: #### C MP, CBC ####[address] Mean Corpuscular HGB Conc 34.3 g/dL Normal 32.5-35.6 [facility] Comment on above: Performed By: #### C MP, CBC ####[address] Monocytes (Bld) [#/Vol] 0.4 10*3/uL Normal 0.0-0.8 [facility] Comment on above: Performed By: #### C MP, CBC ####[address] Monocytes/100 WBC (Bld) 6.3 % Normal . [facility] Comment on above: Performed By: #### C MP, CBC ####[address] Neutrophils (Bld) [#/Vol] 4.7 10*3/uL Normal 1.8-7.7 [facility] Comment on above: Performed By: #### C MP, CBC ####[address] Neutrophils/100 WBC (Bld) 72.1 % Normal . [facility] Comment on above: Performed By: #### C MP, CBC ####[address] NRBC% 0.1 /100{WBC} Normal 0-0.5 [facility] Comment on above: Performed By: #### C MP, CBC ####[address] Platelet mean volume (Bld) [Entitic vol] 8.0 fL Normal 6.6-10.1 [facility] Comment on above: Performed By: #### C MP, CBC ####[address] Platelets (Bld) [#/Vol] 183 10*3/uL Normal 150-450 [facility] Comment on above: Performed By: #### C MP, CBC ####[address] RBC (Bld) [#/Vol] 2.97 10*6/uL Low 3.90-5.60 [facility] Comment on above: Performed By: #### C MP, CBC ####[address] WBC (Bld) [#/Vol] 6.5 10*3/uL Normal 4.1-10.5 [facility] Comment on above: Performed By: #### C MP, CBC ####[address] Comprehensive Metabolic Pane mana 09-27-2024 Albumin [Mass/Vol] 3.9 g/dL Normal 3.5-5.7 [facility] Comment on above: Performed By: #### C MP, CBC ####[address] Albumin/Globulin [Mass ratio] 1.6 {ratio} Normal [facility] Comment on above: Performed By: #### C MP, CBC ####[address] ALP [Catalytic activity/Vol] 110 U/L High 34-104 [facility] Comment on above: Performed By: #### C MP, CBC ####[address] ALT [Catalytic activity/Vol] 22 U/L Normal 7-52 [facility] Comment on above: Performed By: #### C MP, CBC ####[place] [id number] [facility] Anion gap [Moles/Vol] 9.7 mmol/L Normal 6.0-15.0 [facility] Comment on above: Performed By: #### C MP, CBC ####[place] [id number] [facility] AST [Catalytic activity/Vol] 22 U/L Normal 13-39 [facility] Comment on above: Performed By: #### C MP, CBC ####[place] [id number] [facility] Bilirubin [Mass/Vol] 0.4 mg/dL Normal 0.3-1.0 [facility] Comment on above: Performed By: #### C MP, CBC ####[place] [id number] [facility] Calcium [Mass/Vol] 8.6 mg/dL Normal 8.6-10.3 [facility] Comment on above: Performed By: #### C MP, CBC ####[place] [id number] [facility] Chloride [Moles/Vol] 108 mmol/L High 98-107 [facility] Comment on above: Performed By: #### C MP, CBC ####[place] [id number] [facility] CO2 [Moles/Vol] 23.4 mmol/L Normal 21.0-31.0 [facility] Comment on above: Performed By: #### C MP, CBC ####[place] [id number] [facility] Creatinine [Mass/Vol] 2.14 mg/dL High 0.70-1.30 [facility] Comment on above: Performed By: #### C MP, CBC ####[address] [address] [facility] Creatinine Clr Calc Pharmacy 31.59 Normal [facility] Comment on above: Result Comment: PERF ORMED BY:[place] [address] [address] [place], [place] [phone] MEDICAL DIRECTORDOMINIC FRANK M.D. Performed By: #### C MP, CBC ####[place] [id number] [facility] Estimated GFR 30.726 mL/Min Normal [facility] Comment on above: Performed By: #### C MP, CBC ####[place] [id number] [facility] Globulin (S) [Mass/Vol] 2.5 g/dL Normal T he [facility] Comment on above: Performed By: #### C MP, CBC ####[address] Glucose [Mass/Vol] 126 mg/dL High 70-100 [facility] Comment on above: Result Comment: [facility] Glucose Reference Range is dependent on time and content of last meal. Glucose of more than 200 mg/dL in a nonstressed, ambulatory subject supports the diagnosis of Diabetes Mellitus. ADA recommended reference range Performed By: #### C MP, CBC ####[address] Potassium [Moles/Vol] 4.1 mmol/L Normal 3.5-5.1 [facility] Comment on above: Performed By: #### C MP, CBC ####[place] [id number] [facility] Protein [Mass/Vol] 6.4 g/dL Normal 6.4-8.9 [facility] Comment on above: Performed By: #### C MP, CBC ####[place] [id number] [facility] Sodium [Moles/Vol] 137 mmol/L Normal 136-145 [facility] Comment on above: Performed By: #### C MP, CBC ####[place] [id number] [facility] Urea nitrogen [Mass/Vol] 29 mg/dL High 7-25 [facility] Comment on above: Performed By: #### C MP, CBC ####[facility] [id number] [place] [id number] [facility] Creatinine [Mass/volume] in Serum or PlasmaOrdered By: Price Crain on 09-27-2024 Creatinine [Mass/Vol] Creatinine [Mass/v olume] in Serum or Plasma High 0.70-1.30 [facility] Creatinine [Mass/volume] in UrineOrdered By: Price Crain on 09-27-2024 Creatinine (U) [Mass/Vol] Creatinine [Mass/volume] in Urine [facility] Comment on above: No reference range e stablished Eosinophils Auto (Bld) [#/Vo l]Ordered By: Price Crain on 09-27-2024 Eosinophils (Bld) [#/Vol] Automated eosinophil count 0.0-0.45 [facility] Eosinophils/100 WBC Auto (Bl d)Ordered By: Price Crain on 09-27-2024 Eosinophils/100 WBC (Bld) Automated eosinophil % . [facility] Erythrocyte distribution wid th Auto (RBC) [Ratio]Ordered By: Price Crain on 09-27-2024 Erythrocyte distribution width (RBC) [Ratio] Erythrocyte distribution width [Ratio] by Automated count High 12.0-14.8 [facility] Folate [Mass/volume] in Seru m or PlasmaOrdered By: Price Crain on 09-27-2024 Folate [Mass/Vol] Folate [Mass/volume] in Serum or Plasma >5.9 [facility] Comment on above: Folate reference ran ge: >5.9 ng/mlThe WHO technical consultation on folate and vitamin [id number] has determined that folate concentrations lessthan 4 ng/ml are considered deficient. Free K+L LT Chains, Qn, Son 09-27-2024 Free [place] Light Chains, S 41.5 mg/L High 3.3-19.4 [facility] Comment on above: Performed By: #### I FE,URINE, KAPPA, IMM RADHA, SPE ####[facility] ,#### LDH ####[facility] [address] [place] [id number] [facility] Free [place] Light Chains, S 31.4 mg/L High 5.7-26.3 [facility] Comment on above: Performed By: #### I FE,URINE, KAPPA, IMM RADHA, SPE ####[facility] ,#### LDH ####[place] [id number] [place]/Lambda Ratio, S 1.32 Normal 0.26-1.65 [facility] Comment on above: Result Comment: Perf ormed at: CB - [facility] [address] [id number] Director Of Manufacturing: Melchor Agrawal PhD, Phone: [phone] BY:[address] [place], [place] [phone] MEDICAL DIRECTORMONISA FRANK M.D. Performed By: #### I FE,URINE, KAPPA, IMM RADHA, SPE ####[facility] ,#### LDH ####[address] Globulin Calc (S) [Mass/Vol] Ordered By: Price Crain on 09-27-2024 Globulin (S) [Mass/Vol] Serum globulin m easurement by calculation (mass/volume) [facility] Glucose [Mass/volume] in Ser um or PlasmaOrdered By: Price Crain on 09-27-2024 Glucose [Mass/Vol] Glucose [Mass/volume ] in Serum or Plasma High 70-100 [facility] Comment on above: ADA recommended refe rence rangeRandom Glucose Reference Range is dependent on time and content of last meal. Glucose of more than 200 mg/dL in a nonstressed, ambulatory subject supports the diagnosis of Diabetes Mellitus. Hematocrit Auto (Bld) [Volum e fraction]Ordered By: Price Crain on 09-27-2024 Hematocrit (Bld) [Volume fraction] Hematocrit [Volume Fraction] of Blood by Automated count Low 38.8-50.0 [facility] Hemoglobin [Mass/volume] in BloodOrdered By: Price Crain on 09-27-2024 Hemoglobin (Bld) [Mass/Vol] Hemoglobin [Mass/volume] in Blood Low 13.0-17.0 [facility] Immunofixation for UrineOrde red By: Brook Huddleston on 09-27-2024 Interpretation Immunofixation (U) [Interp] Immunofixation for Urine . [facility] Comment on above: Presence of monoclon al protein is unclear at this time. Suggestrepeat in 3 to 6 months if clinically indicated.Performed at: [facility] [id number] Director: Melchor Agrawal PhD, Phone: [phone] Interpretation Immunofixation (U) [Interp] Comment: . [facility] Comment on above: Presence of monoclon al protein is unclear at this time. Suggestrepeat in 3 to 6 months if clinically indicated.Performed at: [facility] [id number] Director: Melchor Agrawal PhD, Phone: [phone] Immunofixation, (JOSE C), Urine on 09-27-2024 Immunofixation, (JOSE C), Urine Comment: Normal . [facility] Comment on above: Result Comment: Pres ence of monoclonal protein is unclear at this time. Suggest repeat in 3 to 6 months if clinically indicated. Performed at: [facility] [id number] Director Of Manufacturing: Melchor Agrawal PhD, Phone: [phone] BY:[facility] [place], [place] [phone] MEDICAL DIRECTORDOMINIC FRANK M.D. Performed By: #### I FE,URINE, KAPPA, IMM RADHA, SPE ####[facility] ,#### LDH ####[facility] [place] [address] [facility] Immunoglobulins A/G/M, Qn, S yue 09-27-2024 Immunoglobulin A, Serum 202 mg/dL Normal 61-437 T he [facility] Comment on above: Performed By: #### I FE,URINE, KAPPA, IMM RADHA, SPE ####[facility] ,#### LDH ####[address] Immunoglobulin G 1053 mg/dL Normal 603-1613 [facility] Comment on above: Performed By: #### I FE,URINE, KAPPA, IMM RADHA, SPE ####[facility] ,#### LDH ####[address] Immunoglobulin M, Serum 58 mg/dL Normal 15-143 [facility] Comment on above: Result Comment: Perf ormed at: [facility] [id number] Director Of Manufacturing: Melchor Agrawal PhD, Phone: [phone] Performed By: #### I FE,URINE, KAPPA, IMM RADHA, SPE ####[facility] ,#### LDH ####[address] [facility] Lactate Dehydrogenaseon 09-27-2024 LDH Lactate Dehydrogenase 140 U/L Normal 140-271 [facility] Comment on above: Result Comment: PERF ORMED BY:[address] [place], [place] [phone] MEDICAL DIRECTORDOMINIC FRANK M.D. Performed By: #### I FE,URINE, KAPPA, IMM RADHA, SPE ####[facility] ,#### LDH ####[address] [facility] Lactate to pyruvate reac tion [Catalytic activity/Vol]on 09-27-2024 [facility] LACTATE DEHYDROGENASE 140 U/L 140 - 271 U/L [facility] Lactate dehydrogenase [Enzym atic activity/volume] in Serum or Plasma by Lactate to pyOrdered By: Brook Huddleston on 09-27-2024 LDH Lactate to pyruvate reaction [Catalytic activity/Vol] Lactate dehydrogenase [Enzymatic activity/volume] in Serum or Plasma by Lactate to py 140-271 [facility] LDH Lactate to pyruvate reaction [Catalytic activity/Vol] 140 U/L 140-271 [facility] Leukocytes [#/volume] correc lizbet for nucleated erythrocytes in Blood by Automated counOrdered By: Price Crain on 09-27-2024 WBC corrected for nucl RBC Auto (Bld) [#/Vol] Leukocytes [#/volume] corrected for nucleated erythrocytes in Blood by Automated coun 4.1-10.5 [facility] Lymphocytes Auto (Bld) [#/Vo l]Ordered By: Price Crain on 09-27-2024 Lymphocytes (Bld) [#/Vol] Lymphocytes [#/volume] in Blood by Automated count 1.00-4.8 [facility] Lymphocytes/100 WBC Auto (Bl d)Ordered By: Price Crain on 09-27-2024 Lymphocytes/100 WBC (Bld) Lymphocytes/100 leukocytes in Blood by Automated count . [facility] MCH Auto (RBC) [Entitic mass ]Ordered By: Price Crain on 09-27-2024 MCH (RBC) [Entitic mass] MCH [Entitic mass] by Automated count High 27.5-35.2 [facility] MCHC Auto (RBC) [Mass/Vol]Or dered By: Price Crain on 09-27-2024 MCHC (RBC) [Mass/Vol] MCHC [Mass/volume] by Automated count 32.5-35.6 [facility] MCV Auto (RBC) [Entitic vol] Ordered By: Price Crain on 09-27-2024 MCV (RBC) [Entitic vol] MCV [Entitic vol ume] by Automated count High 83.5-101 [facility] Magnesiumon 09-27-2024 Magnesium [Mass/Vol] 2.0 mg/dL Normal 1.9-2.7 [facility] Comment on above: Performed By: #### V [id number], URIC, [id number], PHOS, MG, PTH ####[facility] [id number] Magnesium [Mass/volume] in S valeria or PlasmaOrdered By: Price Crain on 09-27-2024 Magnesium [Mass/Vol] Magnesium [Mass/vol ume] in Serum or Plasma 1.9-2.7 [facility] Monocytes Auto (Bld) [#/Vol] Ordered By: Price Crain on 09-27-2024 Monocytes (Bld) [#/Vol] Automated blood monocyte count 0.0-0.8 [facility] Monocytes/100 WBC Auto (Bld) Ordered By: Price Crain on 09-27-2024 Monocytes/100 WBC (Bld) Automated monocyte % . [facility] Neutrophils Auto (Bld) [#/Vo l]Ordered By: Price Crain on 09-27-2024 Neutrophils (Bld) [#/Vol] Neutrophils [#/volume] in Blood by Automated count 1.8-7.7 [facility] Neutrophils/100 WBC Auto (Bl d)Ordered By: Price Crain on 09-27-2024 Neutrophils/100 WBC (Bld) Automated neutrophil % . [facility] No Panel InformationOrdered By: Brook Huddleston on 09-27-2024 Protein Electrophoresis M-Anselmo Not observed g/dL Not Observed [facility] Protein Electrophoresis Note Comment . [facility] Comment on above: Protein electrophore sis scan will follow via computer,mail, or technical documentation specialist delivery.Performed at: [facility] [address] [id number] Director: Melchor Agrawal PhD, Phone: [phone] Urine Random Prot Electrophor Note Comment . [facility] Comment on above: Protein electrophore sis scan will follow via computer,mail, or technical documentation specialist delivery.Performed at: [facility] [address] [id number] Director: Melchor Agrawal PhD, Phone: [phone] Comment . [facility] No Panel InformationOrdered By: Price Crain on 09-27-2024 Estimated GFR (CKD-EPI) 30.726 mL/Min [facility] Creatinine Clearance (Chem 31.59 [facility] Nucleated erythrocytes [Pres ence] in Blood by Automated countOrdered By: Price Crain on 09-27-2024 Nucleated RBC Auto Ql (Bld) Nucleated erythrocytes [Presence] in Blood by Automated count 0-0.5 [facility] Parathyrin.intact [Mass/volu me] in Serum or PlasmaOrdered By: Price Crain on 09-27-2024 Parathyrin.intact [Mass/Vol] Parathyrin.intact [Mass/volume] in Serum or Plasma [facility] Parathyroid Hormone Intacton 09-27-2024 Parathyroid Hormone Intact 63.9 pg/mL Normal [facility] Comment on above: Result Comment: PERF ORMED BY:[address] [place], [place] [phone] MEDICAL DIRECTORDOMINIC FRANK M.D. Performed By: #### V [id number], URIC, [id number], PHOS, MG, PTH ####[place] [address] [place] [address] [facility] Phosphate [Mass/volume] in S valeria or PlasmaOrdered By: Price Crain on 09-27-2024 Phosphate [Mass/Vol] Phosphate [Mass/vol ume] in Serum or Plasma 2.5-4.5 [facility] Phosphoruson 09-27-2024 Phosphate [Mass/Vol] 3.7 mg/dL Normal 2.5-4.5 [facility] Comment on above: Performed By: #### V [id number], URIC, [id number], PHOS, MG, PTH ####[address] [address] [facility] Platelet mean volume Auto (B ld) [Entitic vol]Ordered By: Price Crain on 09-27-2024 Platelet mean volume (Bld) [Entitic vol] Platelet mean volume [Entitic volume] in Blood by Automated count 6.6-10.1 [facility] Platelets Auto (Bld) [#/Vol] Ordered By: Price Crain on 09-27-2024 Platelets (Bld) [#/Vol] Platelets [#/vol ume] in Blood by Automated count 150-450 [facility] Potassium [Moles/volume] in Serum or PlasmaOrdered By: Price Crain on 09-27-2024 Potassium [Moles/Vol] Potassium [Moles/v olume] in Serum or Plasma 3.5-5.1 [facility] Protein Creat Ratio Ur Rando mon 09-27-2024 Creatinine, Urine (Random) 89.00 mg/dL Normal [facility] Comment on above: Result Comment: No r eference range established Performed By: #### P ROCRERAT ####[place] [address] [place] [address] [facility] Protein (U) [Mass/Vol] 180 mg/dL High 0-9 Th e [facility] Comment on above: Performed By: #### P ROCRERAT ####[address] [address] [facility] Urine Protein/Creatinine Ratio 2022 mg/g{Cre} High 0-200 [facility] Comment on above: Result Comment: PERF ORMED BY:[address] [place], [place] [phone] MEDICAL DIRECTORDOMINIC FRANK M.D. Performed By: #### P ROCRERAT ####[address] [address] [facility] Protein Electro, Random Urin yovany 09-27-2024 Albumin, Urine 44.5 % Normal . [facility] Comment on above: Performed By: #### U PE RAND ####[facility] , [id number], Urine 3.0 % Normal . [facility] Comment on above: Performed By: #### U PE RAND ####[facility] , [id number], Urine 10.8 % Normal . [facility] Comment on above: Performed By: #### U PE RAND ####[facility] , Beta Globulin, Urine 19.6 % Normal . [facility] Comment on above: Performed By: #### U PE RAND ####[facility] , Gamma Globulin, Urine 22.1 % Normal . [facility] Comment on above: Performed By: #### U PE RAND ####[facility] , M-Anselmo % Comment: Normal Not Observed [facility] Comment on above: Result Comment: UPE shows an asymmetrical gamma. Refer to urine JOSE C for further evaluation. Performed By: #### U PE RAND ####[facility] , Please Note: Comment Normal . [facility] Comment on above: Result Comment: Prot ein electrophoresis scan will follow via computer, mail, or technical documentation specialist delivery. Performed at: [facility] [address] [id number] Director Of Manufacturing: Melchor Agrawal PhD, Phone: [phone] BY:[address] [place], [place] [phone] MEDICAL DIRECTORDOMINIC FRANK M.D. Performed By: #### U PE RAND ####[facility] , Protein Electrophoresis, Ser umon 09-27-2024 Albumin [Mass/Vol] 3.4 g/dL Normal 2.9-4.4 [facility] Comment on above: Performed By: #### I FE,URINE, KAPPA, IMM RADHA, SPE ####[facility] ,#### LDH ####[address] Albumin/Globulin [Mass ratio] 1.1 {ratio} Normal 0.7-1.7 [facility] Comment on above: Performed By: #### I FE,URINE, KAPPA, IMM RADHA, SPE ####[facility] ,#### LDH ####[address] Uqbpj-4-Exhjleqq 0.2 g/dL Normal 0.0-0.4 [facility] Comment on above: Performed By: #### I FE,URINE, KAPPA, IMM RADHA, SPE ####[facility] ,#### LDH ####[address] Qvhfh-6-Ljupknmz 0.8 g/dL Normal 0.4-1.0 [facility] Comment on above: Performed By: #### I FE,URINE, KAPPA, IMM RADHA, SPE ####[facility] ,#### LDH ####[address] Beta Globulin 0.9 g/dL Normal 0.7-1.3 [facility] Comment on above: Performed By: #### I FE,URINE, KAPPA, IMM RADHA, SPE ####[facility] ,#### LDH ####[address] Gamma Globulin 1.1 g/dL Normal 0.4-1.8 [facility] Comment on above: Performed By: #### I FE,URINE, KAPPA, IMM RADHA, SPE ####[facility] ,#### LDH ####[address] Globulin (S) [Mass/Vol] 3.0 g/dL Normal 2.2-3.9 [facility] Comment on above: Performed By: #### I FE,URINE, KAPPA, IMM RADHA, SPE ####[facility] ,#### LDH ####[address] M-Anselmo Not Observed Normal Not Observed [facility] Comment on above: Performed By: #### I FE,URINE, KAPPA, IMM RADHA, SPE ####[facility] ,#### LDH ####[address] Protein [Mass/Vol] 6.4 g/dL Normal 6.0-8.5 [facility] Comment on above: Performed By: #### I FE,URINE, KAPPA, IMM RADHA, SPE ####[facility] ,#### LDH ####[facility] [id number] SPE-Note Comment Normal . [facility] Comment on above: Result Comment: Prot ein electrophoresis scan will follow via computer, mail, or technical documentation specialist delivery. Performed at: - [facility] [address] [id number] Director Of Manufacturing: Melchor Agrawal PhD, Phone: [phone] Performed By: #### I FE,URINE, KAPPA, IMM RADHA, SPE ####[facility] ,#### LDH ####[place] [id number] [address] Protein [Mass/volume] in Ser um or PlasmaOrdered By: Price Crain on 09-27-2024 Protein [Mass/Vol] Protein [Mass/volume ] in Serum or Plasma 6.4-8.9 [facility] Protein [Mass/volume] in Uri neOrdered By: Price Crain on 09-27-2024 Protein (U) [Mass/Vol] Protein [Mass/vol ume] in Urine High 0-9 [facility] RBC Auto (Bld) [#/Vol]Ordere d By: Price Crain on 09-27-2024 RBC (Bld) [#/Vol] Erythrocytes [#/volu me] in Blood by Automated count Low 3.90-5.60 [facility] Serum free kappa light chain measurementOrdered By: Brook Huddleston on 09-27-2024 Immunoglobulin light chains.kappa.free (S) [Mass/Vol] Immunoglobulin light chains.kappa.free [Mass/volume] in Serum High 3.3-19.4 [facility] Serum globulin measurement ( mass/volume)Ordered By: Brook Huddleston on 09-27-2024 Globulin (S) [Mass/Vol] Serum globulin m easurement (mass/volume) 2.2-3.9 [facility] Serum immunoglobulin free ka ppa light chains/immunoglobulin free lambda light chainsOrdered By: Brook Huddleston on 09-27-2024 Immunoglobulin light chains.kappa.free/Immun oglobulin light chains.lambda.free (S) [Mass ratio] Immunoglobulin light chains.kappa.free/Immunogl obulin light chains.lambda.free [Mass 0.26-1.65 [facility] Comment on above: Performed at: [facility] [address] [place], [place] [id number] Director: Melchor Agrawal PhD, Phone: [phone] Serum or plasma IgA measurem ent (mass/volume)Ordered By: Brook Huddleston on 09-27-2024 IgA [Mass/Vol] IgA [Mass/volume] in Serum or Plasma 61-437 [facility] Serum or plasma IgG measurem ent (mass/volume)Ordered By: Brook Huddleston on 09-27-2024 IgG [Mass/Vol] IgG [Mass/volume] in Serum or Plasma 603-1613 [facility] Serum or plasma IgM measurem ent (mass/volume)Ordered By: Brook Huddleston on 09-27-2024 IgM [Mass/Vol] IgM [Mass/volume] in Serum or Plasma 15-143 [facility] Comment on above: Performed at: [facility] [id number] [place], [place] [id number] Director: Melchor Agrawal PhD, Phone: [phone] Serum or plasma albumin reese urement (mass/volume)Ordered By: Brook Huddleston on 09-27-2024 Albumin [Mass/Vol] Albumin [Mass/volume ] in Serum or Plasma 2.9-4.4 [facility] Serum or plasma albumin/glob ulin mass ratioOrdered By: Brook Huddleston on 09-27-2024 Albumin/Globulin [Mass ratio] Serum or plasma albumin/globulin mass ratio 0.7-1.7 [facility] Serum or plasma albumin/glob ulin mass ratioOrdered By: Price Crain on 09-27-2024 Albumin/Globulin [Mass ratio] Serum or plasma albumin/globulin mass ratio [facility] Serum or plasma alpha 1 glob ulin measurement by electrophoresis (mass/volume)Ordered By: Brook Huddleston on 09-27-2024 Alpha 1 globulin Elph [Mass/Vol] Serum or plasma alpha 1 globulin measurement by electrophoresis (mass/volume) 0.0-0.4 [facility] Serum or plasma alpha 2 glob ulin measurement by electrophoresis (mass/volume)Ordered By: Brook Huddleston on 09-27-2024 Alpha 2 globulin Elph [Mass/Vol] Serum or plasma alpha 2 globulin measurement by electrophoresis (mass/volume) 0.4-1.0 [facility] Serum or plasma anion gap de terminationOrdered By: Price Crain on 09-27-2024 Anion gap [Moles/Vol] Serum or plasma an ion gap determination 6.0-15.0 [facility] Serum or plasma beta globuli n measurement by electrophoresis (mass/volume)Ordered By: Brook Huddleston on 09-27-2024 Beta globulin Elph [Mass/Vol] Serum or plasma beta globulin measurement by electrophoresis (mass/volume) 0.7-1.3 [facility] Serum or plasma gamma globul in measurement by electrophoresis (mass/volume)Ordered By: Brook Huddleston on 09-27-2024 Gamma globulin Elph [Mass/Vol] Serum or plasma gamma globulin measurement by electrophoresis (mass/volume) 0.4-1.8 [facility] Serum or plasma immunoglobul in free lambda light chains measurement (mass/volume)Ordered By: Brook Huddleston on 09-27-2024 Immunoglobulin light chains.lambda.free [Mass/Vol] Immunoglobulin light chains.lambda.free [Mass/volume] in Serum or Plasma High 5.7-26.3 [facility] Serum total protein measurem entOrdered By: Brook Huddleston on 09-27-2024 Protein [Mass/Vol] Protein [Mass/volume ] in Serum or Plasma 6.0-8.5 [facility] Sodium [Moles/volume] in Ser um or PlasmaOrdered By: Price Crain on 09-27-2024 Sodium [Moles/Vol] Sodium [Moles/volume ] in Serum or Plasma 136-145 [facility] Urate [Mass/volume] in Serum or PlasmaOrdered By: Price Crain on 09-27-2024 Urate [Mass/Vol] Urate [Mass/volume] in Serum or Plasma 4.4-7.6 [facility] Urea nitrogen [Mass/volume] in Serum or PlasmaOrdered By: Price Crain on 09-27-2024 Urea nitrogen [Mass/Vol] Urea nitrogen [Mass/volume] in Serum or Plasma High 7-25 [facility] Uric Acidon 09-27-2024 Urate [Mass/Vol] 5.2 mg/dL Normal 4.4-7.6 [facility] Comment on above: Performed By: #### V [id number], URIC, [id number], PHOS, MG, PTH ####[facility] [id number] Urine alpha 1 globulin/total protein by electrophoresisOrdered By: Brook Huddleston on 09-27-2024 Alpha 1 globulin Elph (U) [Mass fraction] Urine alpha 1 globulin/total protein by electrophoresis . [facility] Alpha 1 globulin Elph (U) [Mass fraction] 3.0 % . [facility] Urine alpha 2 globulin/total protein ratio by electrophoresisOrdered By: Brook Huddleston on 09-27-2024 Alpha 2 globulin Elph (U) [Mass fraction] Urine alpha 2 globulin/total protein ratio by electrophoresis . [facility] Alpha 2 globulin Elph (U) [Mass fraction] 10.8 % . [facility] Urine beta globulin measurem ent by electrophoresis (mass/volume)Ordered By: Brook Huddleston on 09-27-2024 Beta globulin Elph (U) [Mass/Vol] Urine beta globulin measurement by electrophoresis (mass/volume) . [facility] Beta globulin Elph (U) [Mass/Vol] 19.6 % . [facility] Urine protein measurement (m ass/volume)Ordered By: Brook Huddleston on 09-27-2024 Protein (U) [Mass/Vol] Protein [Mass/vol ume] in Urine Not Estab. [facility] Protein (U) [Mass/Vol] 170.1 mg/dL Normal Not Estab. F [facility] Comment on above: Performed By: #### U PE RAND ####[facility] , Urine protein/creatinine rat ioOrdered By: Price Crain on 09-27-2024 Protein/Creatinine (U) [Ratio] Urine protein/creatinine ratio High 0-200 [facility] Vit. B12/Folate Profileon Cobalamin (Vitamin B12) [Mass/Vol] 1082 pg/mL High 180-914 [facility] Comment on above: Performed By: #### V [id number], URIC, [id number], PHOS, MG, PTH ####[place] [address] [place] [address] [facility] Folate 18.4 ng/mL Normal >5.9 [facility] Comment on above: Result Comment: Christi te reference range: >5.9 ng/ml The WHO technical consultation on folate and vitamin b12 deficiencies has determined that folate concentrations less than 4 ng/ml are considered deficient. Performed By: #### V [id number], URIC, [id number], PHOS, MG, PTH ####[place] [address] [place] [address] [facility] Vitamin B12 ser/plasOrdered By: Price Crain on 09-27-2024 Cobalamin (Vitamin B12) [Mass/Vol] Vitamin B12 ser/plas High 180-914 [facility] Vitamin D 25 Hydroxy Totalon 09-27-2024 Vitamin D 25 Hydroxy Total 67.3 ng/mL Normal 30-100 [facility] Comment on above: Result Comment: ALEJA MIN D STATUS 25(OH)VITAMIN D RANGE (ng/mL) Deficient <20 Insufficient 20 to <30 Sufficient 30 to 100 Reference: Dieudonne MF,Brendon NC, Estrella CARTER, et al. Evaluation,treatment, and prevention of vitamin D deficiency; an Endocrine Society clinical practice guideline. JCEM. 2010; 96(7):1911-30.PERFORMED BY:[address] [place], [place] [phone] MEDICAL DIRECTORDOMINIC FRANK M.D. Performed By: #### V [id number], URIC, [id number], PHOS, MG, PTH ####[address] [address] [facility] Vitamin D+Metabolites [Mass/ volume] in Serum or PlasmaOrdered By: Price Crain on 09-27-2024 Vitamin D+Metabolites [Mass/Vol] Vitamin D+Metabolites [Mass/volume] in Serum or Plasma 30-100 [facility] Comment on above: VITAMIN D STATUS 25( [...] ] in Blood by Automated count 4.1-10.5 [facility] CBC W Auto Differential pane l (Bld)on 09-21-2024 Basophils (Bld) [#/Vol] 0 10*3/uL 0.0 - 0.2 10*3/uL [facility] Basophils/100 WBC Manual cnt (Syn fld) 0.4 % . [facility] Eosinophils (Bld) [#/Vol] 0.4 10*3/uL 0.0 - 0.45 10*3/uL [facility] Eosinophils/100 WBC Manual cnt (Syn fld) 5.3 % . [facility] Erythrocyte distribution width (RBC) [Ratio] 17.4 % High 12.0 - 14.8 % [facility] Hematocrit (Bld) [Volume fraction] 30.8 % Low 38.8 - 50.0 % [facility] Hemoglobin (Bld) [Mass/Vol] 10.3 g/dL Low 13.0 - 17.0 g/dL [facility] Interpretation and review of laboratory results Abnormal [facility] Lymphocytes (Bld) [#/Vol] 1.2 10*3/uL 1.00 - 4.8 10*3/uL [facility] Lymphocytes/100 WBC Manual cnt (Syn fld) 18.4 % . [facility] MCH (RBC) [Entitic mass] 35.1 pg 27.5 - 35.2 pg [facility] MCHC (RBC) [Mass/Vol] 33.4 g/dL 32.5 - 35.6 g/dL [facility] MCV (RBC) [Entitic vol] 105 fL High 83.5 - 101 fL [facility] Monocytes (Bld) [#/Vol] 0.4 10*3/uL 0.0 - 0.8 10*3/uL [facility] Monocytes+Macrophages/1 00 WBC Manual cnt (Syn fld) 6.1 % . [facility] Neutrophils (Bld) [#/Vol] 4.7 10*3/uL 1.8 - 7.7 10*3/uL [facility] Neutrophils/100 WBC Manual cnt (Syn fld) 69.8 % . [facility] NRBC 0.1 /100{WBC} 0 - 0.5 /100{WBC} [facility] Platelet mean volume (Bld) [Entitic vol] 8.3 fL 6.6 - 10.1 fL [facility] Platelets (Bld) [#/Vol] 182 10*3/uL 150 - 450 10*3/uL [facility] RBC LM.HPF (Urine sed) [#/Area] 2.94 10*6/uL Low 3.90 - 5.60 10*6/uL [facility] WBC (Bld) [#/Vol] 6.7 10*3/uL 4.1 - 10.5 10*3/uL [facility] WBC LM.HPF (Urine sed) [#/Area] 6.7 10*3/uL 4.1 - 10.5 10*3/uL [facility] Complete Blood Count Auto Di ffon 09-21-2024 Basophils (Bld) [#/Vol] 0.0 10*3/uL Normal 0.0-0.2 [facility] Comment on above: Result Comment: PERF ORMED BY:[address] [place], [place] [phone] MEDICAL DIRECTORDOMINIC FRANK M.D. Performed By: #### C BC ####[address] [address] [facility] Basophils/100 WBC (Bld) 0.4 % Normal . T dank [facility] Comment on above: Performed By: #### C BC ####[address] [address] [facility] Eosinophils (Bld) [#/Vol] 0.4 10*3/uL Normal 0.0-0.45 [facility] Comment on above: Performed By: #### C BC ####[address] Eosinophils/100 WBC (Bld) 5.3 % Normal . [facility] Comment on above: Performed By: #### C BC ####[address] Erythrocyte distribution width (RBC) [Ratio] 17.4 % High 12.0-14.8 [facility] Comment on above: Performed By: #### C BC ####[address] Hematocrit (Bld) [Volume fraction] 30.8 % Low 38.8-50.0 [facility] Comment on above: Performed By: #### C BC ####[address] Hemoglobin (Bld) [Mass/Vol] 10.3 g/dL Low 13.0-17.0 [facility] Comment on above: Performed By: #### C BC ####[address] Lymphocytes (Bld) [#/Vol] 1.2 10*3/uL Normal 1.00-4.8 [facility] Comment on above: Performed By: #### C BC ####[address] Lymphocytes/100 WBC (Bld) 18.4 % Normal . [facility] Comment on above: Performed By: #### C BC ####[address] MCH (RBC) [Entitic mass] 35.1 pg Normal 27.5-35.2 [facility] Comment on above: Performed By: #### C BC ####[address] MCV (RBC) [Entitic vol] 105.0 fL High 83.5-101 T he [facility] Comment on above: Performed By: #### C BC ####[place] [id number] [place] Mean Corpuscular HGB Conc 33.4 g/dL Normal 32.5-35.6 [facility] Comment on above: Performed By: #### C BC ####[address] Monocytes (Bld) [#/Vol] 0.4 10*3/uL Normal 0.0-0.8 [facility] Comment on above: Performed By: #### C BC ####[address] Monocytes/100 WBC (Bld) 6.1 % Normal . [facility] Comment on above: Performed By: #### C BC ####[address] Neutrophils (Bld) [#/Vol] 4.7 10*3/uL Normal 1.8-7.7 [facility] Comment on above: Performed By: #### C BC ####[address] Neutrophils/100 WBC (Bld) 69.8 % Normal . [facility] Comment on above: Performed By: #### C BC ####[address] NRBC% 0.1 /100{WBC} Normal 0-0.5 [facility] Comment on above: Performed By: #### C BC ####[address] Platelet mean volume (Bld) [Entitic vol] 8.3 fL Normal 6.6-10.1 [facility] Comment on above: Performed By: #### C BC ####[address] Platelets (Bld) [#/Vol] 182 10*3/uL Normal 150-450 [facility] Comment on above: Performed By: #### C BC ####[address] RBC (Bld) [#/Vol] 2.94 10*6/uL Low 3.90-5.60 [facility] Comment on above: Performed By: #### C BC ####[facility] [place] [address] [facility] WBC (Bld) [#/Vol] 6.7 10*3/uL Normal 4.1-10.5 [facility] Comment on above: Performed By: #### C BC ####[facility] [place] [address] [facility] XR bone surveyon 09-21-2024 XR bone survey Normal [facility] C Urineon 09-12-2024 Bacteria identified Cx Nom (U) Microbiology PROCEDURE: Urine Culture [R1] SOURCE: U Cath BODY SITE: COLLECTED DATE/TIME: 09/08/2024 15:39 EST RECEIVED DATE/TIME: 09/09/2024 17:24 EST START DATE/TIME: 09/09/2024 17:24 EST FREE TEXT SOURCE: CARLEY Damian APRN, CARLEY Damian APRN, Makayla X Makayla X FINAL REPORTS Final [...] Locations R1: This test was performed at: [facility], [address] [place] [address], [address] , , [facility] Comment on above: Performed By: #### 2 [id number] #### [facility] [address] [place] [address] Ambulatory Visit Summaryon 0 09-08-2024 Ambulatory Visit [...] APRN, [place] X Where: [facility] [address] [place] [address] [place] [address]- Medications What How Much When Instructions Unchanged [...] for choosing us for your care. Normal [facility] Urology Office/Clinic Noteon 09-08-2024 Urology Office/Clinic Note Urology Office/Clinic Note HPI Staff 3 wk cath change. History of Present Illness I have reviewed and verified the staff HPI to be accurate for this encounter. Portions of this record may have been created with voice recognition artificial intelligence software, specifically [employer], [employer] and or [employer]. Substitutions may have occurred due to the [...] E&M of Est. Patient Low 20-29 Min 67868 Urine Culture 2. 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 Patient Low 20-29 Min 22618 Orders: ciprofloxacin, 500 mg = 1 tab(s), Oral, q12hr, X 5 day(s), # 10 tab(s), Refills(s) 0, Pharmacy: [facility], 171, cm, 08/31/24 11:19:00 EST, Height/Length Dosing, 94, kg, 08/31/24 11:19:00 EST, Weight Dosing Follow-up With When Contact Information CARLEY Damian APRN, Makayla X, FAM, URL Additional Instructions: 3 [...] vaccine, inactivated (more content not included)... Normal [facility] Comment on above: Result Comment: Elec [...] 3:10 PM EST With: CARLEY Damian APRN, Makayla Soriano Where: [facility] Marcela [address] [place] [address]- You Need to Schedule the Following Appointments Follow Up with Diego RICKS, Orquidea Taylor, OUSMANE, URO When: Comments: Schedule BL stent exchange [...] are t (more content not included)... Normal [facility] Urology Office/Clinic Noteon 08-31-2024 Urology Office/Clinic Note Urology Office/Clinic Note Chief Complaint Follow Up to UTI & ER visit HPI Staff 3 month f/u. Previous dx: prostate cancer (active surveillance), noncompliant bladder, OAB, hydroureteronephrosis, ureteral stricture, incomplete bladder emptying, recurrent UTI, kidney stones, BPH with urinary obstruction, fam hx of prostate cancer in father. [facility] ER visit 07/20/24 due to not [...] upon admission so pt was transferred to [email or web address] S/p Cysto with bilateral stent exchange, SP catheter exchange, ureteroscopy/R RPG 07/28/[address] Franklyn Lau at [facility] [[email or web address] It was discussed after the procedure for [...] interventions. THERESA N/A, pt inactive. Follows with [facility], Dr. Crain. Pt here with his today. [...] 08/27/22 - Incidental finding of prostatic adenocarcinoma. Selene 7 (3+4), GG2. Only 6-10% of Selene 4 present. 7 of 78 prostate chips involved. No adverse pathology. Decipher testing 08/27/22 - High genomic risk. Not ideal surgical candidate (prostatectomy) due to age, comorbidities. MRI prostate 11/11/22 [facility] - Prostate volume [...] stent exchange, (more content not included)... Normal [facility] Comment on above: Result Comment: Elec tronically Signed By: Orquidea Cortez MD\.br\Date and Time Signed: 08/31/24 15:26 EST\.br\Electronically Co-Signed By: Makayla Lara.br\Date and Time Co-Signed: 08/31/24 12:30 EST CBC W Auto Differential pane l (Bld)on 08-24-2024 Basophils (Bld) [#/Vol] 0.1 10*3/uL 0.0 - 0.2 10*3/uL [facility] Basophils/100 WBC Manual cnt (Syn fld) 0.9 % . [facility] Eosinophils (Bld) [#/Vol] 0.5 10*3/uL High 0.0 - 0.45 10*3/uL [facility] Eosinophils/100 WBC Manual cnt (Syn fld) 6.2 % . [facility] Erythrocyte distribution width (RBC) [Ratio] 17.6 % High 12.0 - 14.8 % [facility] Hematocrit (Bld) [Volume fraction] 31.2 % Low 38.8 - 50.0 % [facility] Hemoglobin (Bld) [Mass/Vol] 10.4 g/dL Low 13.0 - 17.0 g/dL [facility] Interpretation and review of laboratory results Abnormal [facility] Lymphocytes (Bld) [#/Vol] 1.2 10*3/uL 1.00 - 4.8 10*3/uL [facility] Lymphocytes/100 WBC Manual cnt (Syn fld) 16.8 % . [facility] MCH (RBC) [Entitic mass] 34.8 pg 27.5 - 35.2 pg [facility] MCHC (RBC) [Mass/Vol] 33.3 g/dL 32.5 - 35.6 g/dL [facility] MCV (RBC) [Entitic vol] 104.6 fL High 83.5 - 101 fL [facility] Monocytes (Bld) [#/Vol] 0.4 10*3/uL 0.0 - 0.8 10*3/uL [facility] Monocytes+Macrophages/1 00 WBC Manual cnt (Syn fld) 6 % . [facility] Neutrophils (Bld) [#/Vol] 5.2 10*3/uL 1.8 - 7.7 10*3/uL [facility] Neutrophils/100 WBC Manual cnt (Syn fld) 70.1 % . [facility] NRBC 0.1 /100{WBC} 0 - 0.5 /100{WBC} [facility] Platelet mean volume (Bld) [Entitic vol] 8 fL 6.6 - 10.1 fL [facility] Platelets (Bld) [#/Vol] 199 10*3/uL 150 - 450 10*3/uL [facility] RBC LM.HPF (Urine sed) [#/Area] 2.98 10*6/uL Low 3.90 - 5.60 10*6/uL [facility] WBC (Bld) [#/Vol] 7.4 10*3/uL 4.1 - 10.5 10*3/uL [facility] WBC LM.HPF (Urine sed) [#/Area] 7.4 10*3/uL 4.1 - 10.5 10*3/uL [facility] Complete Blood Count Auto Di ffon 08-24-2024 Basophils (Bld) [#/Vol] 0.1 10*3/uL Normal 0.0-0.2 [facility] Comment on above: Result Comment: PERF ORMED BY:[address] [place], [place] [phone] MEDICAL DIRECTORDOMINIC FRANK M.D. Performed By: #### C BC ####[address] Basophils/100 WBC (Bld) 0.9 % Normal . [facility] Comment on above: Performed By: #### C BC ####[address] Eosinophils (Bld) [#/Vol] 0.5 10*3/uL High 0.0-0.45 [facility] Comment on above: Performed By: #### C BC ####[address] Eosinophils/100 WBC (Bld) 6.2 % Normal . [facility] Comment on above: Performed By: #### C BC ####[address] Erythrocyte distribution width (RBC) [Ratio] 17.6 % High 12.0-14.8 [facility] Comment on above: Performed By: #### C BC ####[address] Hematocrit (Bld) [Volume fraction] 31.2 % Low 38.8-50.0 [facility] Comment on above: Performed By: #### C BC ####[address] Hemoglobin (Bld) [Mass/Vol] 10.4 g/dL Low 13.0-17.0 [facility] Comment on above: Performed By: #### C BC ####[address] Lymphocytes (Bld) [#/Vol] 1.2 10*3/uL Normal 1.00-4.8 [facility] Comment on above: Performed By: #### C BC ####[address] Lymphocytes/100 WBC (Bld) 16.8 % Normal . [facility] Comment on above: Performed By: #### C BC ####[address] MCH (RBC) [Entitic mass] 34.8 pg Normal 27.5-35.2 [facility] Comment on above: Performed By: #### C BC ####[address] MCV (RBC) [Entitic vol] 104.6 fL High 83.5-101 [facility] Comment on above: Performed By: #### C BC ####[address] Mean Corpuscular HGB Conc 33.3 g/dL Normal 32.5-35.6 [facility] Comment on above: Performed By: #### C BC ####[address] Monocytes (Bld) [#/Vol] 0.4 10*3/uL Normal 0.0-0.8 [facility] Comment on above: Performed By: #### C BC ####[address] Monocytes/100 WBC (Bld) 6.0 % Normal . [facility] Comment on above: Performed By: #### C BC ####[address] Neutrophils (Bld) [#/Vol] 5.2 10*3/uL Normal 1.8-7.7 [facility] Comment on above: Performed By: #### C BC ####[place] [id number] [facility] Neutrophils/100 WBC (Bld) 70.1 % Normal . [facility] Comment on above: Performed By: #### C BC ####[address] [address] [facility] NRBC% 0.1 /100{WBC} Normal 0-0.5 [facility] Comment on above: Performed By: #### C BC ####[address] [address] [facility] Platelet mean volume (Bld) [Entitic vol] 8.0 fL Normal 6.6-10.1 [facility] Comment on above: Performed By: #### C BC ####[address] [address] [facility] Platelets (Bld) [#/Vol] 199 10*3/uL Normal 150-450 [facility] Comment on above: Performed By: #### C BC ####[place] [id number] [facility] RBC (Bld) [#/Vol] 2.98 10*6/uL Low 3.90-5.60 [facility] Comment on above: Performed By: #### C BC ####[place] [id number] [facility] WBC (Bld) [#/Vol] 7.4 10*3/uL Normal 4.1-10.5 [facility] Comment on above: Performed By: #### C BC ####[place] [id number] [facility] C Urineon 08-19-2024 Bacteria identified Cx Nom (U) Microbiology PROCEDURE: Urine Culture [R1] SOURCE: U Cath BODY SITE: COLLECTED DATE/TIME: 08/16/2024 12:29 EST RECEIVED DATE/TIME: 08/16/2024 16:06 EST START DATE/TIME: 08/16/2024 16:06 EST FREE TEXT SOURCE: cath Orabich WAITER/WAITRESS CAPTAIN, RN INTERNSHIP-C, Nati WAITER/WAITRESS CAPTAIN, RN INTERNSHIP-C, Makayla X Makayla X FINAL REPORTS Final [...] This test was performed at: [facility], [address] [place] [address], [id number]- , , [facility] Comment on above: Performed By: #### 2 [id number] #### [facility] [address] [place] [id number] Urology Office/Clinic Noteon 08-18-2024 Urology Office/Clinic Note Urology Office/Clinic Note HPI Staff fatigue, chills, body aches started today History of Present Illness I have reviewed and verified the staff HPI to be accurate for this encounter. Portions of this record may have been created with voice recognition artificial intelligence software, specifically [employer], [employer] and or [employer]. Substitutions may have occurred due to the inherent limitations of voice recognition and artificial intelligence software. Physical Exam General: Well developed, well nourished, in no acute distress. Assessment/Plan KML pt 1. UTI (urinary tract infection) (N39.0: Urinary tract infection, site not specified) hx of frequent UTIs, sepsis does take macrobid prophylactically around time of SPT exchanges recent inpatient stay at [email or web address] d/t urosepsis has been doing well since [...] discuss next stent exchange and recs from [facility] [[email or web address]] doc 2. Noncompliant bladder (N31.9: Neuromuscular dysfunction [...] Recorded haemophilu (more content not included)... Normal [facility] Comment on above: Result Comment: Elec tronically Signed By: CARLEY Damian APRN, Makayla Soriano\.br\Date and Time Signed: 08/18/24 20:01 EST Basic Metabolic Panelon 12- Anion gap [Moles/Vol] 13.4 mmol/L Normal 6.0-15.0 Th e [facility] Comment on above: Performed By: #### B MP ####[place] [id number] [facility] Calcium [Mass/Vol] 8.1 mg/dL Low 8.6-10.3 [facility] Comment on above: Performed By: #### B MP ####[place] [id number] [facility] Chloride [Moles/Vol] 109 mmol/L High 98-107 [facility] Comment on above: Performed By: #### B MP ####[address] [address] [facility] CO2 [Moles/Vol] 21.6 mmol/L Normal 21.0-31.0 [facility] Comment on above: Performed By: #### B MP ####[address] [address] [facility] Creatinine [Mass/Vol] 2.43 mg/dL High 0.70-1.30 [facility] Comment on above: Performed By: #### B MP ####[place] [id number] [facility] Creatinine Clr Calc Pharmacy 27.82 Normal [facility] Comment on above: Result Comment: PERF ORMED BY:[place] [address] [address] [place] [phone] MEDICAL TITA FRANK M.D. Performed By: #### B MP ####[place] [id number] [facility] Estimated GFR 26.380 mL/Min Normal [facility] Comment on above: Performed By: #### B MP ####[address] Glucose [Mass/Vol] 139 mg/dL High 70-100 [facility] Comment on above: Result Comment: [place] Glucose Reference Range is dependent on time and content of last meal. Glucose of more than 200 mg/dL in a nonstressed, ambulatory subject supports the diagnosis of Diabetes Mellitus. ADA recommended reference range Performed By: #### B MP ####[address] Potassium [Moles/Vol] 4.0 mmol/L Normal 3.5-5.1 [facility] Comment on above: Performed By: #### B MP ####[address] Sodium [Moles/Vol] 140 mmol/L Normal 136-145 [facility] Comment on above: Performed By: #### B MP ####[place] [id number] [facility] Urea nitrogen [Mass/Vol] 32 mg/dL High 7-25 [facility] Comment on above: Performed By: #### B MP ####[place] [id number] [facility] CBC W Auto Differential pane l (Bld)on 08-01-2024 Basophils (Bld) [#/Vol] 0 10*3/uL 0.0 - 0.2 10*3/uL [facility] Basophils/100 WBC Manual cnt (Syn fld) 0.4 % . [facility] Eosinophils (Bld) [#/Vol] 0.3 10*3/uL 0.0 - 0.45 10*3/uL [facility] Eosinophils/100 WBC Manual cnt (Syn fld) 4.6 % . [facility] Erythrocyte distribution width (RBC) [Ratio] 17 % High 12.0 - 14.8 % [facility] Hematocrit (Bld) [Volume fraction] 29.2 % Low 38.8 - 50.0 % [facility] Hemoglobin (Bld) [Mass/Vol] 9.7 g/dL Low 13.0 - 17.0 g/dL [facility] Interpretation and review of laboratory results Abnormal [facility] Lymphocytes (Bld) [#/Vol] 0.8 10*3/uL Low 1.00 - 4.8 10*3/uL [facility] Lymphocytes/100 WBC Manual cnt (Syn fld) 11.3 % . [facility] MCH (RBC) [Entitic mass] 34 pg 27.5 - 35.2 pg [facility] MCHC (RBC) [Mass/Vol] 33.1 g/dL 32.5 - 35.6 g/dL [facility] MCV (RBC) [Entitic vol] 102.8 fL High 83.5 - 101 fL [facility] Monocytes (Bld) [#/Vol] 0.4 10*3/uL 0.0 - 0.8 10*3/uL [facility] Monocytes+Macrophages/1 00 WBC Manual cnt (Syn fld) 5.3 % . [facility] Neutrophils (Bld) [#/Vol] 5.7 10*3/uL 1.8 - 7.7 10*3/uL [facility] Neutrophils/100 WBC Manual cnt (Syn fld) 78.4 % . [facility] NRBC 0 /100{WBC} 0 - 0.5 /100{WBC} [facility] Platelet mean volume (Bld) [Entitic vol] 8.2 fL 6.6 - 10.1 fL [facility] Platelets (Bld) [#/Vol] 200 10*3/uL 150 - 450 10*3/uL [facility] RBC LM.HPF (Urine sed) [#/Area] 2.84 10*6/uL Low 3.90 - 5.60 10*6/uL [facility] WBC (Bld) [#/Vol] 7.3 10*3/uL 4.1 - 10.5 10*3/uL [facility] WBC LM.HPF (Urine sed) [#/Area] 7.3 10*3/uL 4.1 - 10.5 10*3/uL [facility] Complete Blood Count Auto Di ffon 08-01-2024 Basophils (Bld) [#/Vol] 0.0 10*3/uL Normal 0.0-0.2 [facility] Comment on above: Result Comment: PERF ORMED BY:[address] [place] [phone] MEDICAL DIRECTORDOMINIC FRANK M.D. Performed By: #### C BC ####[address] Basophils/100 WBC (Bld) 0.4 % Normal . T he [facility] Comment on above: Performed By: #### C BC ####[address] Eosinophils (Bld) [#/Vol] 0.3 10*3/uL Normal 0.0-0.45 [facility] Comment on above: Performed By: #### C BC ####[address] Eosinophils/100 WBC (Bld) 4.6 % Normal . [facility] Comment on above: Performed By: #### C BC ####[address] Erythrocyte distribution width (RBC) [Ratio] 17.0 % High 12.0-14.8 [facility] Comment on above: Performed By: #### C BC ####[address] Hematocrit (Bld) [Volume fraction] 29.2 % Low 38.8-50.0 [facility] Comment on above: Performed By: #### C BC ####[address] Hemoglobin (Bld) [Mass/Vol] 9.7 g/dL Low 13.0-17.0 [facility] Comment on above: Performed By: #### C BC ####[address] Lymphocytes (Bld) [#/Vol] 0.8 10*3/uL Low 1.00-4.8 [facility] Comment on above: Performed By: #### C BC ####[address] Lymphocytes/100 WBC (Bld) 11.3 % Normal . [facility] Comment on above: Performed By: #### C BC ####[address] MCH (RBC) [Entitic mass] 34.0 pg Normal 27.5-35.2 [facility] Comment on above: Performed By: #### C BC ####[address] MCV (RBC) [Entitic vol] 102.8 fL High 83.5-101 [facility] Comment on above: Performed By: #### C BC ####[address] Mean Corpuscular HGB Conc 33.1 g/dL Normal 32.5-35.6 [facility] Comment on above: Performed By: #### C BC ####[address] Monocytes (Bld) [#/Vol] 0.4 10*3/uL Normal 0.0-0.8 [facility] Comment on above: Performed By: #### C BC ####[address] Monocytes/100 WBC (Bld) 5.3 % Normal . [facility] Comment on above: Performed By: #### C BC ####[address] Neutrophils (Bld) [#/Vol] 5.7 10*3/uL Normal 1.8-7.7 [facility] Comment on above: Performed By: #### C BC ####[address] Neutrophils/100 WBC (Bld) 78.4 % Normal . [facility] Comment on above: Performed By: #### C BC ####[address] NRBC% 0.0 /100{WBC} Normal 0-0.5 [facility] Comment on above: Performed By: #### C BC ####[address] Platelet mean volume (Bld) [Entitic vol] 8.2 fL Normal 6.6-10.1 [facility] Comment on above: Performed By: #### C BC ####[address] Platelets (Bld) [#/Vol] 200 10*3/uL Normal 150-450 [facility] Comment on above: Performed By: #### C BC ####[address] RBC (Bld) [#/Vol] 2.84 10*6/uL Low 3.90-5.60 [facility] Comment on above: Performed By: #### C BC ####[address] WBC (Bld) [#/Vol] 7.3 10*3/uL Normal 4.1-10.5 [facility] Comment on above: Performed By: #### C BC ####[address] 30on 07-30-2024 30 Daily Case Managemen [...] further OTM needs identified at this time. [facility] will continue to follow and assist with [...] Yes Carbohydrate restriction: Diabetic Male (carb 60g/meal) 07/28/24 182 Physician Expected Discharge Date: 07/30/2024 Discharge Delays: [...] OT? Answer: D/C recs 07/24/24 1838 Normal [facility] BASIC METABOLIC PANELon 12- Anion gap [Moles/Vol] 9 mmol/L Normal 7-20 [facility] Comment on above: Performed By: #### L [id number] ####[facility] ([facility]AK[facility])[address] [place] [address] Calcium [Mass/Vol] 8.1 mg/dL Low 8.6-10.3 [facility] Comment on above: Performed By: #### L [id number] ####[facility] ([facility]AKER)[address] [place] [address] Chloride [Moles/Vol] 110 mmol/L High 98-107 [facility] Comment on above: Performed By: #### L [id number] ####[facility] ([facility]AKER)[address] [place] [address] CO2 [Moles/Vol] 24 mmol/L Normal 21-31 [facility] Comment on above: Performed By: #### L [id number] ####[facility] [place] [address] Creatinine [Mass/Vol] 2.70 mg/dL High 0.70-1.30 [facility] Comment on above: Performed By: #### L [id number] ####[facility] ([facility])[address] [place] [address] GLOMERULAR FILTRATION RATE ML/MIN/1.73 SQ M.PREDICTED 23.2 mL/min/1.73m*2 Low >60.0 [facility] Comment on above: Result Comment: [facility]???s estimated glomerular filtration rate (eGFR) will [...] of individuals. Performed By: #### L [id number] ####[facility] [place] [address] Glucose [Mass/Vol] 110 mg/dL High 70-100 [facility] Comment on above: Performed By: #### L [id number] ####[facility] ([facility])[address] [place] [address] Potassium [Moles/Vol] 3.7 mmol/L Normal 3.5-5.1 [facility] Comment on above: Performed By: #### L [id number] ####[facility] [place] [address] Sodium [Moles/Vol] 139 mmol/L Normal 136-145 [facility] Comment on above: Performed By: #### L [id number] ####[facility] ([facility])[address] [place] [address] Urea nitrogen [Mass/Vol] 30 mg/dL High 7-25 [facility] Comment on above: Performed By: #### L [id number] ####[facility] ([facility])[address] [place] [address] UREA NITROGEN/CREATININE (MASS RATIO) IN SER/PLAS 11.1 Normal [facility] Comment on above: Performed By: #### L [id number] ####[facility] ([facility])[address] [place] [address] CBC WITH AUTO DIFFERENTIALon 07-30-2024 Basophils (Bld) [#/Vol] 0.02 10*3/uL Normal 0.00-0.20 [facility] Comment on above: Performed By: #### L [id number] #### [facility] ([facility]) [address] [place] [address] Basophils/100 WBC (Bld) 0.2 % Normal 0.0-1.0 [facility] Comment on above: Performed By: #### L [id number] #### [facility] ([facility]) [address] [place] [address] Eosinophils (Bld) [#/Vol] 0.26 10*3/uL Normal 0.00-0.50 [facility] Comment on above: Performed By: #### L [id number] #### [facility] ([facility]) [address] [place] [address] Eosinophils/100 WBC (Bld) 2.9 % Normal 0.0-6.0 [facility] Comment on above: Performed By: #### L [id number] #### [facility] ([facility]) [address] [place] [address] Erythrocyte distribution width (RBC) [Ratio] 16.6 % High 11.5-15.0 [facility] Comment on above: Performed By: #### L [id number] #### [facility] ([facility]ER) [address] [place] [address] ERYTHROCYTE MEAN CORPUSCULAR HEMOGLOBIN CONCENTRATION (G/DL) BY AUTOMATED 31.9 g/dL Low 32.0-35.0 [facility] Comment on above: Performed By: #### L [id number] #### [facility] ([facility]) [address] [place] [address] Hematocrit (Bld) [Volume fraction] 25.4 % Low 39.0-55.0 [facility] Comment on above: Performed By: #### L [id number] #### [facility] [address] [place] [address] Hemoglobin (Bld) [Mass/Vol] 8.1 g/dL Low 13.0-17.0 [facility] Comment on above: Performed By: #### L [id number] #### [facility] ([facility]) [address] [place] [address] Immature granulocytes (Bld) [#/Vol] 0.06 10*3/uL Normal 0.00-0.20 [facility] Comment on above: Performed By: #### L [id number] #### [facility] ([facility]) [address] [place] [address] Immature granulocytes/100 WBC (Bld) 0.7 % Normal 0.0-1.0 [facility] Comment on above: Performed By: #### L [id number] #### [facility] ([facility]) [address] [place] [address] Lymphocytes (Bld) [#/Vol] 1.16 10*3/uL Low 1.20-4.00 [facility] Comment on above: Performed By: #### L [id number] #### [facility] ([facility]ER) [address] [place] [address] Lymphocytes/100 WBC (Bld) 13.2 % Low 20.0-45.0 [facility] Comment on above: Performed By: #### L [id number] #### [facility] ([facility]) [address] [place] [address] MCH (RBC) [Entitic mass] 33.8 pg High 27.0-33.0 [facility] Comment on above: Performed By: #### L [id number] #### [facility] ([facility]) [address] [place] [address] MCV (RBC) [Entitic vol] 105.8 fL High 82.0-98.0 [facility] Comment on above: Performed By: #### L [id number] #### [facility] ([facility]) [address] [place] [address] Monocytes (Bld) [#/Vol] 0.46 10*3/uL Normal 0.10-1.00 [facility] Comment on above: Performed By: #### L [id number] #### [facility] ([facility]) [address] [place] [address] Monocytes/100 WBC (Bld) 5.2 % Normal 5.0-12.0 [facility] Comment on above: Performed By: #### L [id number] #### [facility] ([facility]) [address] [place] [address] Neutrophils (Bld) [#/Vol] 6.92 10*3/uL Normal 1.60-7.60 [facility] Comment on above: Performed By: #### L [id number] #### [facility] ([facility]) [address] [place] [address] Neutrophils/100 WBC (Bld) 78.5 % High 40.0-72.0 [facility] Comment on above: Performed By: #### L [id number] #### [facility] ([facility]) [address] [place] [address] NRBC (PER 100 WBCS) BY AUTOMATED COUNT 0.0 % Normal 0 [facility] Comment on above: Performed By: #### L [id number] #### [facility] ([facility]) [address] [place] [address] PLATELETS (10*3/UL) IN BLOOD AUTOMATED COUNT 166 10*3/uL Normal 150-400 [facility] Comment on above: Performed By: #### L [id number] #### [facility] ([facility]) [address] [place] [address] RBC (Bld) [#/Vol] 2.40 10*6/uL Low 4.20-5.70 [facility] Comment on above: Performed By: #### L [id number] #### [facility] ([facility]) [address] [place] [address] WBC (Bld) [#/Vol] 8.82 10*3/uL Normal 4.00-10.60 [facility] Comment on above: Performed By: #### L [id number] #### [facility] ([facility]) [address] [place] [address] MAGNESIUMon 07-30-2024 Magnesium [Mass/Vol] 1.7 mg/dL Low 1.9-2.7 [facility] Comment on above: Performed By: #### L [id number] #### [facility] ([facility]) [address] [place] [address] POCT GLUCOSE METER UNSOLICIT ED RESULTSon 07-30-2024 Glucose [Mass/Vol] 114 mg/dL High 70-105 [facility] Comment on above: Order Comment: Waive d Testing in the ED is performed under the ED CLIA certificate #[id number]. Result Comment: dveon wade Performed By: #### L [id number] #### [facility] ([facility]) [address] [place] [address] 30on 07-29-2024 30 The patient is Moder [...] Skin integrity remains intact Outcome: Progressing Normal [facility] 30 The patient is Moder ately [...] infection during hospitalization Outcome: Not Progressing Normal [facility] BASIC METABOLIC PANELon 12- Anion gap [Moles/Vol] 10 mmol/L Normal 7-20 [facility] Comment on above: Performed By: #### L [id number] #### [facility] ([facility]) [address] [place] [address] Calcium [Mass/Vol] 8.3 mg/dL Low 8.6-10.3 [facility] Comment on above: Performed By: #### L [id number] #### [facility] ([facility]) [address] [place] [address] Chloride [Moles/Vol] 111 mmol/L High 98-107 [facility] Comment on above: Performed By: #### L [id number] #### [facility] ([facility]) [address] [place] [address] CO2 [Moles/Vol] 26 mmol/L Normal 21-31 [facility] Comment on above: Performed By: #### L [id number] #### [facility] ([facility]) [address] [place] [address] Creatinine [Mass/Vol] 3.07 mg/dL High 0.70-1.30 [facility] Comment on above: Performed By: #### L [id number] #### [facility] ([facility]) [address] [place] [address] GLOMERULAR FILTRATION RATE ML/MIN/1.73 SQ M.PREDICTED 19.9 mL/min/1.73m*2 Low >60.0 [facility] Comment on above: Result Comment: The [facility]???s estimated glomerular filtration rate (eGFR) will [...] individuals. Performed By: #### L [id number] #### [facility] ([facility]) [address] [place] [address] Glucose [Mass/Vol] 182 mg/dL High 70-100 [facility] Comment on above: Performed By: #### L [id number] #### [facility] ([facility]) [address] [place] [address] Potassium [Moles/Vol] 3.9 mmol/L Normal 3.5-5.1 [facility] Comment on above: Performed By: #### L [id number] #### [facility] ([facility]) [address] [place] [address] Sodium [Moles/Vol] 143 mmol/L Normal 136-145 [facility] Comment on above: Performed By: #### L [id number] #### [facility] ([facility]) [address] [facility] [place] [address] Urea nitrogen [Mass/Vol] 36 mg/dL High 7-25 [facility] Comment on above: Performed By: #### L [id number] #### [facility] ([facility]) [address] [place] [address] UREA NITROGEN/CREATININE (MASS RATIO) IN SER/PLAS 11.7 Normal [facility] Comment on above: Performed By: #### L [id number] #### [facility] ([facility]) [address] [place] [address] CBC WITH AUTO DIFFERENTIALon 07-29-2024 Basophils (Bld) [#/Vol] 0.02 10*3/uL Normal 0.00-0.20 [facility] Comment on above: Performed By: #### L [id number] ####[facility] ([facility])[address] [place] [address] Basophils/100 WBC (Bld) 0.2 % Normal 0.0-1.0 [facility] Comment on above: Performed By: #### L [id number] ####[facility] ([facility])[address] [place] [address] Eosinophils (Bld) [#/Vol] 0.19 10*3/uL Normal 0.00-0.50 [facility] Comment on above: Performed By: #### L [id number] ####[facility] ([facility])[address] [place] [address] Eosinophils/100 WBC (Bld) 1.7 % Normal 0.0-6.0 [facility] Comment on above: Performed By: #### L [id number] ####[facility] ([facility])[address] [place] [address] Erythrocyte distribution width (RBC) [Ratio] 16.8 % High 11.5-15.0 [facility] Comment on above: Performed By: #### L [id number] ####[facility] ([facility])[address] [place] [address] ERYTHROCYTE MEAN CORPUSCULAR HEMOGLOBIN CONCENTRATION (G/DL) BY AUTOMATED 33.3 g/dL Normal 32.0-35.0 [facility] Comment on above: Performed By: #### L [id number] ####[facility] ([facility])[address] [place] [address] Hematocrit (Bld) [Volume fraction] 25.8 % Low 39.0-55.0 [facility] Comment on above: Performed By: #### L [id number] ####[facility] ([facility])[address] [place] [address] Hemoglobin (Bld) [Mass/Vol] 8.6 g/dL Low 13.0-17.0 [facility] Comment on above: Performed By: #### L [id number] ####[facility] ([facility])[address] [place] [address] Immature granulocytes (Bld) [#/Vol] 0.08 10*3/uL Normal 0.00-0.20 [facility] Comment on above: Performed By: #### L [id number] ####[facility] ([facility])[address] [place] [address] Immature granulocytes/100 WBC (Bld) 0.7 % Normal 0.0-1.0 [facility] Comment on above: Performed By: #### L [id number] ####[facility] ([facility])[address] [place] [address] Lymphocytes (Bld) [#/Vol] 0.74 10*3/uL Low 1.20-4.00 [facility] Comment on above: Performed By: #### L [id number] ####[facility] ([facility])[address] [place] [address] Lymphocytes/100 WBC (Bld) 6.4 % Low 20.0-45.0 [facility] Comment on above: Performed By: #### L [id number] ####[facility] ([facility])[address] [place] [address] MCH (RBC) [Entitic mass] 34.4 pg High 27.0-33.0 [facility] Comment on above: Performed By: #### L [id number] ####[facility] ([facility])[address] [place] [address] MCV (RBC) [Entitic vol] 103.2 fL High 82.0-98.0 [facility] Comment on above: Performed By: #### L [id number] ####[facility] [[email or web address] ([facility])[address] [place] [address] Monocytes (Bld) [#/Vol] 0.54 10*3/uL Normal 0.10-1.00 [facility] Comment on above: Performed By: #### L [id number] ####[facility] [place] [address] Monocytes/100 WBC (Bld) 4.7 % Low 5.0-12.0 [facility] Comment on above: Performed By: #### L [id number] ####[facility] ([facility])[address] [place] [address] Neutrophils (Bld) [#/Vol] 10.01 10*3/uL High 1.60-7.60 [facility] Comment on above: Performed By: #### L [id number] ####[facility] [place] [address] Neutrophils/100 WBC (Bld) 87.0 % High 40.0-72.0 [facility] Comment on above: Performed By: #### L [id number] ####[facility] ([facility])[address] [place] [address] NRBC (PER 100 WBCS) BY AUTOMATED COUNT 0.0 % Normal 0 [facility] Comment on above: Performed By: #### L [id number] ####[facility] ([facility])[address] [place] [address] PLATELETS (10*3/UL) IN BLOOD AUTOMATED COUNT 163 10*3/uL Normal 150-400 [facility] Comment on above: Performed By: #### L [id number] ####[facility] ([facility])[address] [place] [address] RBC (Bld) [#/Vol] 2.50 10*6/uL Low 4.20-5.70 [facility] Comment on above: Performed By: #### L [id number] ####[facility] ([facility])[address] [place] [address] WBC (Bld) [#/Vol] 11.50 10*3/uL High 4.00-10.60 [facility] Comment on above: Performed By: #### L [id number] ####[facility] ([facility])[address] [place] [address] MAGNESIUMon 07-29-2024 Magnesium [Mass/Vol] 1.9 mg/dL Normal 1.9-2.7 [facility] Comment on above: Performed By: #### L [id number] ####[facility] ([facility])[address] [place] [address] POCT GLUCOSE METER UNSOLICIT ED RESULTSon 07-29-2024 Glucose [Mass/Vol] 123 mg/dL High 70-105 [facility] Comment on above: Order Comment: Waive d Testing in the ED is performed under the ED CLIA certificate #[id number]. Result Comment: [email or web address] Performed By: #### L [id number] #### [facility] ([facility]) [address] [place] [address] Glucose [Mass/Vol] 314 mg/dL High 70-105 [facility] Comment on above: Order Comment: Waive d Testing in the ED is performed under the ED CLIA certificate #[id number]. Result Comment: [email or web address] Performed By: #### L [id number] ####[facility] ([facility])[address] [place] [address] Glucose [Mass/Vol] 349 mg/dL High 70-105 [facility] Comment on above: Order Comment: Waive d Testing in the ED is performed under the ED CLIA certificate #[id number]. Result Comment: [email or web address] Performed By: #### L [id number] ####[facility] ([facility])[address] [place] [address] Glucose [Mass/Vol] 150 mg/dL High 70-105 [facility] Comment on above: Order Comment: Waive d Testing in the ED is performed under the ED CLIA certificate #[id number]. Result Comment: dgar row Performed By: #### L [id number] #### [facility] ([facility]) [address] [place] [address] Glucose [Mass/Vol] 156 mg/dL High 70-105 [facility] Comment on above: Order Comment: Waive d Testing in the ED is performed under the ED CLIA certificate #[id number]. Result Comment: dgar row Performed By: #### L [id number] ####[facility] ([facility])[address] [place] [address] 30on 07-28-2024 30 The patient is Moder ately Stable - Low risk of patient condition declining or worsening The patient's goals for the shift include safety, comfort The clinical goals for the shift include VSS,safety, comfort Normal [facility] Anesthesiaon 07-28-2024 Anesthesia [id number] Angel Cunningham 1945 M Date Provider Department [place] 07/28/2024 [id number] MARTIN [facility] [[email or web address] [place] [facility] No family history on file Normal [facility] BASIC METABOLIC PANELon 07-17 Anion gap [Moles/Vol] 9 mmol/L Normal 7-20 [facility] Comment on above: Performed By: #### L [id number] ####[facility] ([facility])[address] [place] [address] Calcium [Mass/Vol] 7.9 mg/dL Low 8.6-10.3 [facility] Comment on above: Performed By: #### L [id number] ####[facility] ([facility])[address] [place] [address] Chloride [Moles/Vol] 109 mmol/L High 98-107 [facility] Comment on above: Performed By: #### L [id number] ####[facility] ([facility])[address] [place] [address] CO2 [Moles/Vol] 26 mmol/L Normal 21-31 [facility] Comment on above: Performed By: #### L [id number] ####[facility] ([facility])[address] [place] [address] Creatinine [Mass/Vol] 3.89 mg/dL High 0.70-1.30 [facility] Comment on above: Performed By: #### L [id number] ####[facility] ([facility])[address] [place] [address] GLOMERULAR FILTRATION RATE ML/MIN/1.73 SQ M.PREDICTED 15.0 mL/min/1.73m*2 Low >60.0 [facility] Comment on above: Result Comment: The [facility]???s estimated glomerular filtration rate (eGFR) will [...] of individuals. Performed By: #### L [id number] ####[facility] ([facility])[address] [place] [address] Glucose [Mass/Vol] 163 mg/dL High 70-100 [facility] Comment on above: Performed By: #### L [id number] ####[facility] ([facility])[address] [place] [address] Potassium [Moles/Vol] 4.2 mmol/L Normal 3.5-5.1 [facility] Comment on above: Performed By: #### L [id number] ####[facility] ([facility])[address] [place] [address] Sodium [Moles/Vol] 140 mmol/L Normal 136-145 [facility] Comment on above: Performed By: #### L [id number] ####[facility] [place] [address] Urea nitrogen [Mass/Vol] 46 mg/dL High 7-25 [facility] Comment on above: Performed By: #### L [id number] ####[facility] [place] [address] UREA NITROGEN/CREATININE (MASS RATIO) IN SER/PLAS 11.8 Normal [facility] Comment on above: Performed By: #### L [id number] ####[facility] ([facility])[address] [place] [address] CBC WITH AUTO DIFFERENTIALon 07-28-2024 Erythrocyte distribution width (RBC) [Ratio] 17.2 % High 11.5-15.0 [facility] Comment on above: Performed By: #### L [id number] #### [facility] ([facility]) [address] [place] [address] ERYTHROCYTE MEAN CORPUSCULAR HEMOGLOBIN CONCENTRATION (G/DL) BY AUTOMATED 32.9 g/dL Normal 32.0-35.0 [facility] Comment on above: Performed By: #### L [id number] #### [facility] ([facility]) [address] [place] [address] Hematocrit (Bld) [Volume fraction] 25.8 % Low 39.0-55.0 [facility] Comment on above: Performed By: #### L [id number] #### [facility] [address] [place] [address] Hemoglobin (Bld) [Mass/Vol] 8.5 g/dL Low 13.0-17.0 [facility] Comment on above: Performed By: #### L [id number] #### [facility] [address] [place] [address] MCH (RBC) [Entitic mass] 34.7 pg High 27.0-33.0 [facility] Comment on above: Performed By: #### L [id number] #### [facility] [address] [place] [address] MCV (RBC) [Entitic vol] 105.3 fL High 82.0-98.0 [facility] Comment on above: Performed By: #### L [id number] #### [facility] ([facility]) [address] [place] [address] NRBC (PER 100 WBCS) BY AUTOMATED COUNT 0.0 % Normal 0 [facility] Comment on above: Performed By: #### L [id number] #### [facility] ([facility]) [address] [place] [address] PLATELETS (10*3/UL) IN BLOOD AUTOMATED COUNT 161 10*3/uL Normal 150-400 [facility] Comment on above: Performed By: #### L [id number] #### [facility] ([facility]) [address] [place] [address] RBC (Bld) [#/Vol] 2.45 10*6/uL Low 4.20-5.70 [facility] Comment on above: Performed By: #### L [id number] #### [facility] ([facility]) [address] [place] [address] WBC (Bld) [#/Vol] 6.67 10*3/uL Normal 4.00-10.60 [facility] Comment on above: Performed By: #### L [id number] #### [facility] ([facility]) [address] [place] [address] MAGNESIUMon 07-28-2024 Magnesium [Mass/Vol] 2.1 mg/dL Normal 1.9-2.7 [facility] Comment on above: Performed By: #### L [id number] ####[facility] ([facility])[address] [place] [address] OPNOTEon 07-28-2024 OPNOTE CYSTOURETEROSCOPY, W ITH BILATERAL STENT EXCHANGE ; SUPRAPUBIC CATHETER EXCHANGE (B), URETEROSCOPY (B) Operative Note Date: 07/28/2024 Location: [facility] [[email or web address]] OR Name: Patsy Cunningham, : 1945, Diagnosis [...] Action Serial No. Stent STENT,URETERAL,SOFT,TRIA,7 X26 - [id number] Implanted Stent STENT,URETERAL,SOFT,TRIA,7 X26 - [id number] Implanted Staff: Gaming Cashier: Taryn Brooks RN Scrub Person: Harriett Ortiz [...] We inje (more content not included)... Normal [facility] POCT GLUCOSE METER UNSOLICIT ED RESULTSon 07-28-2024 Glucose [Mass/Vol] 196 mg/dL High 70-105 [facility] Comment on above: Order Comment: Waive d Testing in the ED is performed under the ED CLIA certificate #[id number]. Result Comment: [email or web address] chan Performed By: #### L [id number] #### [facility] ([facility]) [address] [place] [address] Glucose [Mass/Vol] 134 mg/dL High 70-105 [facility] Comment on above: Order Comment: Waive d Testing in the ED is performed under the ED CLIA certificate #[id number]. Result Comment: devon wade Performed By: #### L [id number] #### [facility] ([facility]) [address] [place] [address] Glucose [Mass/Vol] 132 mg/dL High 70-105 [facility] Comment on above: Order Comment: Waive d Testing in the ED is performed under the ED CLIA certificate #[id number]. Result Comment: devon wade Performed By: #### L [id number] #### [facility] ([facility]) [address] [place] [address] TEST MANUAL DIFFERENTIALon 1 09-28-2023 ANISOCYTOSIS PRESENCE IN BLOOD BY LIGHT MICROSCOPY Moderate Normal [facility] Comment on above: Performed By: #### L [id number] ####[facility] ([facility])[address] [facility] [place] [address] BASOPHILS (10*3/UL) IN BLOOD BY CALCULATION 0.00 10*3/uL Normal 0.00-0.20 [facility] Comment on above: Performed By: #### L [id number] ####[facility] ([facility])[address] [facility] [place] [address] BASOPHILS/100 LEUKOCYTES IN BLOOD BY MANUAL COUNT 0 % Normal 0-3 [facility] Comment on above: Performed By: #### L [id number] ####[facility] ([facility])[address] [place] [address] EOSINOPHILS (10*3/UL) IN BLOOD BY CALCULATION 0.53 10*3/uL High 0.00-0.50 [facility] Comment on above: Performed By: #### L [id number] ####[facility] [[email or web address]] HOSPITAL LAB ([facility]ER)[address] [place] [address] EOSINOPHILS/100 LEUKOCYTES IN BLOOD BY MANUAL COUNT 8 % High 0-6 [facility] Comment on above: Performed By: #### L [id number] ####[facility] [place] [address] LYMPHOCYTES (10*3/UL) IN BLOOD BY CALCULATION 0.93 10*3/uL Low 1.20-4.00 [facility] Comment on above: Performed By: #### L [id number] ####[facility] [place] [address] LYMPHOCYTES/100 LEUKOCYTES IN BLOOD BY MANUAL COUNT 14 % Low 18-52 [facility] Comment on above: Performed By: #### L [id number] ####[facility] [place] [address] MONOCYTES (10*3/UL) IN BLOOD BY CALCUATION 0.27 10*3/uL Normal 0.10-1.00 [facility] Comment on above: Performed By: #### L [id number] ####[facility] ([facility])[address] [place] [address] MONOCYTES/100 LEUKOCYTES IN BLOOD BY MANUAL COUNT 4 % Normal 3-10 [facility] Comment on above: Performed By: #### L [id number] ####[facility] ([facility])[address] [place] [address] NEUTROPHILS (10*3/UL) IN BLOOD BY CALCULATION 4.9 10*3/uL Normal 1.6-7.6 [facility] Comment on above: Performed By: #### L [id number] ####[facility] ([facility])[address] [place] [address] POIKILOCYTOSIS (PRESENCE) IN BLOOD BY LIGHT MICROSCOPY Few Normal [facility] Comment on above: Performed By: #### L [id number] ####[facility] ([facility])[address] [place] [address] POLYCHROMASIA IN BLOOD BY LIGHT MICROSCOPY Few Normal [facility] Comment on above: Performed By: #### L [id number] ####[facility] ([facility])[address] [facility] [address] SEGEMENTED NEUTROPHILS/100 LEUKOCYTES BY MANUAL COUNT 74 % Normal 46-78 [facility] Comment on above: Performed By: #### L [id number] ####[facility] ([facility])[address] [facility] [place] [address] 30on 07-27-2024 30 The patient is Moder ately Stable - Low risk of patient condition declining or worsening The patient's goals for the shift include rest & comfort The clinical goals for the shift include comfort Normal [facility] 30 Daily Case Managemen t Update [...] OT? Answer: D/C recs 07/24/24 1838 Normal [facility] BASIC METABOLIC PANELon 07-17 Anion gap [Moles/Vol] 11 mmol/L Normal 7-20 [facility] Comment on above: Performed By: #### L [id number] #### [facility] ([facility]) [address] [place] [address] Calcium [Mass/Vol] 7.8 mg/dL Low 8.6-10.3 [facility] Comment on above: Performed By: #### L [id number] #### [facility] ([facility]) [address] [place] [address] Chloride [Moles/Vol] 106 mmol/L Normal 98-107 [facility] Comment on above: Performed By: #### L [id number] #### [facility] ([facility]) [address] [place] [address] CO2 [Moles/Vol] 29 mmol/L Normal 21-31 [facility] Comment on above: Performed By: #### L [id number] #### [facility] ([facility]) [address] [place] [address] Creatinine [Mass/Vol] 4.98 mg/dL High 0.70-1.30 [facility] Comment on above: Performed By: #### L [id number] #### [facility] [address] [place] [address] GLOMERULAR FILTRATION RATE ML/MIN/1.73 SQ M.PREDICTED 11.2 mL/min/1.73m*2 Low >60.0 [facility] Comment on above: Result Comment: [facility]???s estimated glomerular filtration rate (eGFR) will [...] group of individuals. Performed By: #### L [id number] #### [facility] ([facility]) [address] [place] [address] Glucose [Mass/Vol] 169 mg/dL High 70-100 [facility] Comment on above: Performed By: #### L [id number] #### [facility] ([facility]) [address] [place] [address] Potassium [Moles/Vol] 3.9 mmol/L Normal 3.5-5.1 [facility] Comment on above: Performed By: #### L [id number] #### [facility] ([facility]) [address] [place] [address] Sodium [Moles/Vol] 142 mmol/L Normal 136-145 [facility] Comment on above: Performed By: #### L [id number] #### [facility] ([facility]) [address] [place] [address] Urea nitrogen [Mass/Vol] 61 mg/dL High 7-25 [facility] Comment on above: Performed By: #### L [id number] #### [facility] ([facility]) [address] [place] [address] UREA NITROGEN/CREATININE (MASS RATIO) IN SER/PLAS 12.2 Normal [facility] Comment on above: Performed By: #### L [id number] #### [facility] ([facility]) [address] [place] [address] CBC WITH AUTO DIFFERENTIALon 07-27-2024 Basophils (Bld) [#/Vol] 0.02 10*3/uL Normal 0.00-0.20 [facility] Comment on above: Performed By: #### L [id number] ####[facility] ([facility])[address] [place] [address] Basophils/100 WBC (Bld) 0.4 % Normal 0.0-1.0 [facility] Comment on above: Performed By: #### L [id number] ####[facility] ([facility])[address] [place] [address] Eosinophils (Bld) [#/Vol] 0.32 10*3/uL Normal 0.00-0.50 [facility] Comment on above: Performed By: #### L [id number] ####[facility] ([facility])[address] [place] [address] Eosinophils/100 WBC (Bld) 6.0 % Normal 0.0-6.0 [facility] Comment on above: Performed By: #### L [id number] ####[facility] ([facility])[address] [place] [address] Erythrocyte distribution width (RBC) [Ratio] 15.0 % Normal 11.5-15.0 [facility] Comment on above: Performed By: #### L [id number] ####[facility] ([facility])[address] [place] [address] ERYTHROCYTE MEAN CORPUSCULAR HEMOGLOBIN CONCENTRATION (G/DL) BY AUTOMATED 32.7 g/dL Normal 32.0-35.0 [facility] Comment on above: Performed By: #### L [id number] ####[facility] ([facility])[address] [place] [address] Hematocrit (Bld) [Volume fraction] 21.1 % Low 39.0-55.0 [facility] Comment on above: Performed By: #### L [id number] ####[facility] ([facility])[address] [place] [address] Hemoglobin (Bld) [Mass/Vol] 6.9 g/dL Low 13.0-17.0 [facility] Comment on above: Performed By: #### L [id number] ####[facility] ([facility])[address] [place] [address] Immature granulocytes (Bld) [#/Vol] 0.04 10*3/uL Normal 0.00-0.20 [facility] Comment on above: Performed By: #### L [id number] ####[facility] ([facility])[address] [place] [address] Immature granulocytes/100 WBC (Bld) 0.7 % Normal 0.0-1.0 [facility] Comment on above: Performed By: #### L [id number] ####[facility] ([facility])[address] [place] [address] Lymphocytes (Bld) [#/Vol] 1.08 10*3/uL Low 1.20-4.00 [facility] Comment on above: Performed By: #### L [id number] ####[facility] ([facility])[address] [place] [address] Lymphocytes/100 WBC (Bld) 20.1 % Normal 20.0-45.0 [facility] Comment on above: Performed By: #### L [id number] ####[facility] ([facility])[address] [place] [address] MCH (RBC) [Entitic mass] 34.8 pg High 27.0-33.0 [facility] Comment on above: Performed By: #### L [id number] ####[facility] ([facility])[address] [place] [address] MCV (RBC) [Entitic vol] 106.6 fL High 82.0-98.0 [facility] Comment on above: Performed By: #### L [id number] ####[facility] ([facility])[address] [place] [address] Monocytes (Bld) [#/Vol] 0.41 10*3/uL Normal 0.10-1.00 [facility] Comment on above: Performed By: #### L [id number] ####[facility] ([facility])[address] [place] [address] Monocytes/100 WBC (Bld) 7.6 % Normal 5.0-12.0 [facility] Comment on above: Performed By: #### L [id number] ####[facility] ([facility])[address] [place] [address] Neutrophils (Bld) [#/Vol] 3.50 10*3/uL Normal 1.60-7.60 [facility] Comment on above: Performed By: #### L [id number] ####[facility] ([facility])[address] [place] [address] Neutrophils/100 WBC (Bld) 65.2 % Normal 40.0-72.0 [facility] Comment on above: Performed By: #### L [id number] ####[facility] ([facility])[address] [place] [address] NRBC (PER 100 WBCS) BY AUTOMATED COUNT 0.0 % Normal 0 [facility] Comment on above: Performed By: #### L [id number] ####[facility] ([facility])[address] [place] [address] PLATELETS (10*3/UL) IN BLOOD AUTOMATED COUNT 148 10*3/uL Low 150-400 [facility] Comment on above: Performed By: #### L [id number] ####[facility] ([facility])[address] [place] [address] RBC (Bld) [#/Vol] 1.98 10*6/uL Low 4.20-5.70 [facility] Comment on above: Performed By: #### L [id number] ####[facility] ([facility])[address] [place] [address] WBC (Bld) [#/Vol] 5.37 10*3/uL Normal 4.00-10.60 [facility] Comment on above: Performed By: #### L [id number] ####[facility] [place] [address] CT ABDOMEN PELVIS WO IV CONT [facility] 07-27-2024 CT ABDOMEN PELVIS WO IV CONTRAST History: [...] signed: Ezequiel Dominguez. 5 Invalid Interpretation Code [facility] IRON AND TIBCon 07-27-2024 IRON (UG/DL) IN SER/PLAS 36 ug/dL Low 50-212 [facility] Comment on above: Performed By: #### L [id number] ####[facility] ([facility])[address] [place] [address] IRON BINDING CAPACITY (UG/DL) IN SER/PLAS 129 ug/dL Low 250-450 [facility] Comment on above: Performed By: #### L [id number] ####[facility] ([facility])[address] [place] [address] IRON BINDING CAPACITY.UNSATURATED (UG/DL) IN SER/PLAS 93.0 ug/dL Low 155.0-355. 0 [facility] Comment on above: Performed By: #### L [id number] ####[facility] ([facility])[address] [facility] [place] [address] IRON SATURATION (%) IN SER/PLAS 28 % Normal 20-50 [facility] Comment on above: Performed By: #### L [id number] ####[facility] ([facility])[address] [facility] [place] [address] MAGNESIUMon 07-27-2024 Magnesium [Mass/Vol] 1.8 mg/dL Low 1.9-2.7 [facility] Comment on above: Performed By: #### L [id number] #### [facility] ([facility]) [address] [place] [address] POCT GLUCOSE METER UNSOLICIT ED RESULTSon 07-27-2024 Glucose [Mass/Vol] 170 mg/dL High 70-105 [facility] Comment on above: Order Comment: Waive d Testing in the ED is performed under the ED CLIA certificate #[id number]. Result Comment: [email or web address] Performed By: #### L [id number] #### [facility] ([facility]) [address] [place] [address] Glucose [Mass/Vol] 119 mg/dL High 70-105 [facility] Comment on above: Order Comment: Waive d Testing in the ED is performed under the ED CLIA certificate #[id number]. Result Comment: [email or web address] Performed By: #### L [id number] ####[facility] ([facility])[address] [facility] [place] [address] Glucose [Mass/Vol] 168 mg/dL High 70-105 [facility] Comment on above: Order Comment: Waive d Testing in the ED is performed under the ED CLIA certificate #[id number]. Result Comment: [email or web address] Performed By: #### L [id number] #### [facility] ([facility]) [address] [place] [address] Glucose [Mass/Vol] 186 mg/dL High 70-105 [facility] Comment on above: Order Comment: Waive d Testing in the ED is performed under the ED CLIA certificate #[id number]. Result Comment: [email or web address] Performed By: #### L [id number] #### [facility] ([facility]) [address] [place] [address] TYPE AND SCREENon 07-27-2024 AB SCREEN Negative Normal [facility] Comment on above: Performed By: #### L [id number] #### [facility] ([facility]) [address] [place] [address] ABO group Nom (Bld) A Normal [facility] Comment on above: Performed By: #### L [id number] #### [facility] ([facility]) [address] [place] [address] RH TYPE IN BLOOD Positive Normal [facility] Comment on above: Performed By: #### L [id number] #### [facility] ([facility]) [address] [place] [address] 30on 07-26-2024 30 The patient is Moder [...] and maintained or improved Outcome: Progressing Normal [facility] 30 The patient is Moder ately Stable - Low risk of patient condition declining or worsening The patient's goals for the shift include comfort The clinical goals for the shift include vss Normal [facility] BASIC METABOLIC PANELon 07-17 Anion gap [Moles/Vol] 13 mmol/L Normal 7-20 [facility] Comment on above: Performed By: #### L [id number] #### [facility] ([facility]) [address] [place] [address] Calcium [Mass/Vol] 8.0 mg/dL Low 8.6-10.3 [facility] Comment on above: Performed By: #### L [id number] #### [facility] ([facility]) [address] [place] [address] Chloride [Moles/Vol] 108 mmol/L High 98-107 [facility] Comment on above: Performed By: #### L [id number] #### [facility] ([facility]) [address] [place] [address] CO2 [Moles/Vol] 21 mmol/L Normal 21-31 [facility] Comment on above: Performed By: #### L [id number] #### [facility] ([facility]) [address] [place] [address] Creatinine [Mass/Vol] 6.28 mg/dL High 0.70-1.30 [facility] Comment on above: Performed By: #### L [id number] #### [facility] ([facility]) [address] [place] [address] GLOMERULAR FILTRATION RATE ML/MIN/1.73 SQ M.PREDICTED 8.4 mL/min/1.73m*2 Low >60.0 [facility] Comment on above: Result Comment: The [facility]???s estimated glomerular filtration rate (eGFR) will [...] individuals. Performed By: #### L [id number] #### [facility] ([facility]) [address] [place] [address] Glucose [Mass/Vol] 123 mg/dL High 70-100 [facility] Comment on above: Performed By: #### L [id number] #### [facility] ([facility]) [address] [place] [address] Potassium [Moles/Vol] 4.2 mmol/L Normal 3.5-5.1 [facility] Comment on above: Performed By: #### L [id number] #### [facility] ([facility]) [address] [place] [address] Sodium [Moles/Vol] 138 mmol/L Normal 136-145 [facility] Comment on above: Performed By: #### L [id number] #### [facility] ([facility]) [address] [place] [address] Urea nitrogen [Mass/Vol] 71 mg/dL High 7-25 [facility] Comment on above: Performed By: #### L [id number] #### [facility] ([facility]) [address] [place] [address] UREA NITROGEN/CREATININE (MASS RATIO) IN SER/PLAS 11.3 Normal [facility] Comment on above: Performed By: #### L [id number] #### [facility] ([facility]) [address] [place] [address] CBC WITH AUTO DIFFERENTIALon 07-26-2024 Basophils (Bld) [#/Vol] 0.02 10*3/uL Normal 0.00-0.20 [facility] Comment on above: Performed By: #### L [id number] #### [facility] ([facility]) [address] [place] [address] Basophils/100 WBC (Bld) 0.3 % Normal 0.0-1.0 [facility] Comment on above: Performed By: #### L [id number] #### [facility] ([facility]) [address] [place] [address] Eosinophils (Bld) [#/Vol] 0.32 10*3/uL Normal 0.00-0.50 [facility] Comment on above: Performed By: #### L [id number] #### [facility] ([facility]) [address] [place] [address] Eosinophils/100 WBC (Bld) 4.0 % Normal 0.0-6.0 [facility] Comment on above: Performed By: #### L [id number] #### [facility] [address] [place] [address] Erythrocyte distribution width (RBC) [Ratio] 15.3 % High 11.5-15.0 [facility] Comment on above: Performed By: #### L [id number] #### [facility] [address] [place] [address] ERYTHROCYTE MEAN CORPUSCULAR HEMOGLOBIN CONCENTRATION (G/DL) BY AUTOMATED 32.9 g/dL Normal 32.0-35.0 [facility] Comment on above: Performed By: #### L [id number] #### [facility] [address] [place] [address] Hematocrit (Bld) [Volume fraction] 22.2 % Low 39.0-55.0 [facility] Comment on above: Performed By: #### L [id number] #### [facility] ([facility]) [address] [place] [address] Hemoglobin (Bld) [Mass/Vol] 7.3 g/dL Low 13.0-17.0 [facility] Comment on above: Performed By: #### L [id number] #### [facility] ([facility]) [address] [place] [address] Immature granulocytes (Bld) [#/Vol] 0.06 10*3/uL Normal 0.00-0.20 [facility] Comment on above: Performed By: #### L [id number] #### [facility] ([facility]) [address] [place] [address] Immature granulocytes/100 WBC (Bld) 0.8 % Normal 0.0-1.0 [facility] Comment on above: Performed By: #### L [id number] #### [facility] ([facility]) [address] [place] [address] Lymphocytes (Bld) [#/Vol] 0.98 10*3/uL Low 1.20-4.00 [facility] Comment on above: Performed By: #### L [id number] #### [facility] ([facility]) [address] [place] [address] Lymphocytes/100 WBC (Bld) 12.3 % Low 20.0-45.0 [facility] Comment on above: Performed By: #### L [id number] #### [facility] ([facility]) [address] [place] [address] MCH (RBC) [Entitic mass] 36.1 pg High 27.0-33.0 [facility] Comment on above: Performed By: #### L [id number] #### [facility] ([facility]) [address] [place] [address] MCV (RBC) [Entitic vol] 109.9 fL High 82.0-98.0 [facility] Comment on above: Performed By: #### L [id number] #### [facility] ([facility]) [address] [place] [address] Monocytes (Bld) [#/Vol] 0.53 10*3/uL Normal 0.10-1.00 [facility] Comment on above: Performed By: #### L [id number] #### [facility] ([facility]) [address] [place] [address] Monocytes/100 WBC (Bld) 6.7 % Normal 5.0-12.0 [facility] Comment on above: Performed By: #### L [id number] #### [facility] [address] [place] [address] Neutrophils (Bld) [#/Vol] 6.03 10*3/uL Normal 1.60-7.60 [facility] Comment on above: Performed By: #### L [id number] #### [facility] ([facility]) [address] [place] [address] Neutrophils/100 WBC (Bld) 75.9 % High 40.0-72.0 [facility] Comment on above: Performed By: #### L [id number] #### [facility] ([facility]) [address] [place] [address] NRBC (PER 100 WBCS) BY AUTOMATED COUNT 0.0 % Normal 0 [facility] Comment on above: Performed By: #### L [id number] #### [facility] ([facility]) [address] [place] [address] PLATELETS (10*3/UL) IN BLOOD AUTOMATED COUNT 146 10*3/uL Low 150-400 [facility] Comment on above: Performed By: #### L [id number] #### [facility] ([facility]) [address] [place] [address] RBC (Bld) [#/Vol] 2.02 10*6/uL Low 4.20-5.70 [facility] Comment on above: Performed By: #### L [id number] #### [facility] ([facility]) [address] [place] [address] WBC (Bld) [#/Vol] 7.94 10*3/uL Normal 4.00-10.60 [facility] Comment on above: Performed By: #### L [id number] #### [facility] ([facility]) [address] [place] [address] MAGNESIUMon 07-26-2024 Magnesium [Mass/Vol] 1.9 mg/dL Normal 1.9-2.7 [facility] Comment on above: Performed By: #### L [id number] ####[facility] ([facility])[address] [place] [address] POCT GLUCOSE METER UNSOLICIT ED RESULTSon 07-26-2024 Glucose [Mass/Vol] 167 mg/dL High 70-105 [facility] Comment on above: Order Comment: Waive d Testing in the ED is performed under the ED CLIA certificate #[id number]. Result Comment: [email or web address] itjose Performed By: #### L [id number] ####[email or web address] ([facility])[address] [facility] [place] [address] Glucose [Mass/Vol] 207 mg/dL High 70-105 [facility] Comment on above: Order Comment: Waive d Testing in the ED is performed under the ED CLIA certificate #[id number]. Result Comment: [email or web address] Performed By: #### L [id number] #### [facility] ([facility]) [address] [place] [address] Glucose [Mass/Vol] 146 mg/dL High 70-105 [facility] Comment on above: Order Comment: Waive d Testing in the ED is performed under the ED CLIA certificate #[id number]. Result Comment: [email or web address] ling Performed By: #### L [id number] #### [facility] ([facility]) [address] [place] [address] Glucose [Mass/Vol] 139 mg/dL High 70-105 [facility] Comment on above: Order Comment: Waive d Testing in the ED is performed under the ED CLIA certificate #[id number]. Result Comment: [email or web address] Performed By: #### L [id number] #### [facility] ([facility]) [address] [place] [address] 30on 07-25-2024 30 The patient is Moder [...] and maintained or improved Outcome: Progressing Normal [facility] 30 Daily Case Managemen t Update [...] OT? Answer: D/C recs 07/24/24 1838 Normal [facility] 30 The patient is Moder ately Stable - Low risk of patient condition declining or worsening The patient's goals for the shift include comfort The clinical goals for the shift include VSS Normal [facility] BASIC METABOLIC PANELon 12-0 Anion gap [Moles/Vol] 11 mmol/L Normal 7-20 [facility] Comment on above: Performed By: #### L [id number] #### [facility] [address] [place] [address] Calcium [Mass/Vol] 8.5 mg/dL Low 8.6-10.3 [facility] Comment on above: Performed By: #### L [id number] #### [facility] ([facility]) [address] [place] [address] Chloride [Moles/Vol] 111 mmol/L High 98-107 [facility] Comment on above: Performed By: #### L [id number] #### [facility] ([facility]) [address] [place] [address] CO2 [Moles/Vol] 20 mmol/L Low 21-31 [facility] Comment on above: Performed By: #### L [id number] #### [facility] ([facility]) [address] [place] [address] Creatinine [Mass/Vol] 6.22 mg/dL High 0.70-1.30 [facility] Comment on above: Performed By: #### L [id number] #### [facility] ([facility]) [address] [place] [address] GLOMERULAR FILTRATION RATE ML/MIN/1.73 SQ M.PREDICTED 8.5 mL/min/1.73m*2 Low >60.0 [facility] Comment on above: Result Comment: The [facility]???s estimated glomerular filtration rate (eGFR) will [...] individuals. Performed By: #### L [id number] #### [facility] ([facility]) [address] [place] [address] Glucose [Mass/Vol] 187 mg/dL High 70-100 [facility] Comment on above: Performed By: #### L [id number] #### [facility] ([facility]) [address] [place] [address] Potassium [Moles/Vol] 5.2 mmol/L High 3.5-5.1 [facility] Comment on above: Performed By: #### L [id number] #### [facility] ([facility]) [address] [place] [address] Sodium [Moles/Vol] 137 mmol/L Normal 136-145 [facility] Comment on above: Performed By: #### L [id number] #### [facility] ([facility]) [address] [place] [address] Urea nitrogen [Mass/Vol] 75 mg/dL High 7-25 [facility] Comment on above: Performed By: #### L [id number] #### [facility] ([facility]) [address] [place] [address] UREA NITROGEN/CREATININE (MASS RATIO) IN SER/PLAS 12.1 Normal [facility] Comment on above: Performed By: #### L [id number] #### [facility] ([facility]) [address] [place] [address] CBC WITH AUTO DIFFERENTIALon 07-25-2024 Basophils (Bld) [#/Vol] 0.02 10*3/uL Normal 0.00-0.20 [facility] Comment on above: Performed By: #### L [id number] #### [facility] ([facility]) [address] [place] [address] Basophils/100 WBC (Bld) 0.3 % Normal 0.0-1.0 [facility] Comment on above: Performed By: #### L [id number] #### [facility] [address] [place] [address] Eosinophils (Bld) [#/Vol] 0.49 10*3/uL Normal 0.00-0.50 [facility] Comment on above: Performed By: #### L [id number] #### [facility] ([facility]) [address] [place] [address] Eosinophils/100 WBC (Bld) 6.9 % High 0.0-6.0 [facility] Comment on above: Performed By: #### L [id number] #### [facility] [facility] ([facility]) [address] [place] [address] Erythrocyte distribution width (RBC) [Ratio] 15.3 % High 11.5-15.0 [facility] Comment on above: Performed By: #### L [id number] #### [facility] ([facility]) [address] [place] [address] ERYTHROCYTE MEAN CORPUSCULAR HEMOGLOBIN CONCENTRATION (G/DL) BY AUTOMATED 32.6 g/dL Normal 32.0-35.0 [facility] Comment on above: Performed By: #### L [id number] #### [facility] ([facility]) [address] [place] [address] Hematocrit (Bld) [Volume fraction] 23.6 % Low 39.0-55.0 [facility] Comment on above: Performed By: #### L [id number] #### [facility] ([facility]) [address] [place] [address] Hemoglobin (Bld) [Mass/Vol] 7.7 g/dL Low 13.0-17.0 [facility] Comment on above: Performed By: #### L [id number] #### [facility] ([facility]) [address] [place] [address] Immature granulocytes (Bld) [#/Vol] 0.06 10*3/uL Normal 0.00-0.20 [facility] Comment on above: Performed By: #### L [id number] #### [facility] [address] [place] [address] Immature granulocytes/100 WBC (Bld) 0.8 % Normal 0.0-1.0 [facility] Comment on above: Performed By: #### L [id number] #### [facility] ([facility]) [address] [place] [address] Lymphocytes (Bld) [#/Vol] 0.95 10*3/uL Low 1.20-4.00 [facility] Comment on above: Performed By: #### L [id number] #### [facility] ([facility]) [address] [place] [address] Lymphocytes/100 WBC (Bld) 13.3 % Low 20.0-45.0 [facility] Comment on above: Performed By: #### L [id number] #### [facility] ([facility]) [address] [place] [address] MCH (RBC) [Entitic mass] 34.8 pg High 27.0-33.0 [facility] Comment on above: Performed By: #### L [id number] #### [facility] ([facility]) [address] [place] [address] MCV (RBC) [Entitic vol] 106.8 fL High 82.0-98.0 [facility] Comment on above: Performed By: #### L [id number] #### [facility] ([facility]) [address] [place] [address] Monocytes (Bld) [#/Vol] 0.63 10*3/uL Normal 0.10-1.00 [facility] Comment on above: Performed By: #### L [id number] #### [facility] ([facility]) [address] [place] [address] Monocytes/100 WBC (Bld) 8.8 % Normal 5.0-12.0 [facility] Comment on above: Performed By: #### L [id number] #### [facility] ([facility]) [address] [place] [address] Neutrophils (Bld) [#/Vol] 5.00 10*3/uL Normal 1.60-7.60 [facility] Comment on above: Performed By: #### L [id number] #### [facility] ([facility]) [address] [place] [address] Neutrophils/100 WBC (Bld) 69.9 % Normal 40.0-72.0 [facility] Comment on above: Performed By: #### L [id number] #### [facility] ([facility]) [address] [place] [address] NRBC (PER 100 WBCS) BY AUTOMATED COUNT 0.0 % Normal 0 [facility] Comment on above: Performed By: #### L [id number] #### [facility] ([facility]) [address] [place] [address] PLATELETS (10*3/UL) IN BLOOD AUTOMATED COUNT 148 10*3/uL Low 150-400 [facility] Comment on above: Performed By: #### L [id number] #### [facility] ([facility]) [address] [place] [address] RBC (Bld) [#/Vol] 2.21 10*6/uL Low 4.20-5.70 [facility] Comment on above: Performed By: #### L [id number] #### [facility] ([facility]) [address] [place] [address] WBC (Bld) [#/Vol] 7.15 10*3/uL Normal 4.00-10.60 [facility] Comment on above: Performed By: #### L [id number] #### [facility] ([facility]) [address] [place] [address] CONSULTon 07-25-2024 CONSULT Nephrology Consult N ote Patient : Patsy Cunningham; 79 y.o. Location: [...] to [address] in [place] who presents as transfer from [facility] with acute renal failure and worsening creatinine. [...] in appropriate position. Patient was transferred from [facility] as they required higher level of care [...] 07/25/2024 NOÉ 6. (more content not included)... Normal [facility] CONSULT ------ -- Attestation signed by [...] py and past urologic history of BPH, [place] 6 prostate cancer under active surveillance, chronic retention status post SP tube placement exchanged every 3 weeks (last exchanged 2 weeks ago), chronic bilateral hydronephrosis managed by chronic indwelling ureteral stents exchanged every 3 to [address] Lane in [place] who presents as transfer from [facility] with [...] History: No (more content not included)... Normal [facility] CREATININE, URINE, RANDOMon 07-25-2024 Creatinine (U) [Mass/Vol] 44.0 mg/dL Normal 26-299 [facility] Comment on above: Performed By: #### L [id number] #### [facility] ([facility]) [address] [place] [address] MAGNESIUMon 07-25-2024 Magnesium [Mass/Vol] 2.0 mg/dL Normal 1.9-2.7 [facility] Comment on above: Performed By: #### L [id number] #### [facility] ([facility]) [address] [place] [address] POCT GLUCOSE METER UNSOLICIT ED RESULTSon 07-25-2024 Glucose [Mass/Vol] 137 mg/dL High 70-105 [facility] Comment on above: Order Comment: Waive d Testing in the ED is performed under the ED CLIA certificate #[id number]. Result Comment: [email or web address] Performed By: #### L [id number] ####[facility] ([facility])[address] [place] [address] Glucose [Mass/Vol] 234 mg/dL High 70-105 [facility] Comment on above: Order Comment: Waive d Testing in the ED is performed under the ED CLIA certificate #[id number]. Result Comment: [email or web address] Performed By: #### L [id number] #### [facility] ([facility]) [address] [place] [address] Glucose [Mass/Vol] 150 mg/dL High 70-105 [facility] Comment on above: Order Comment: Waive d Testing in the ED is performed under the ED CLIA certificate #[id number]. Result Comment: [email or web address] Performed By: #### L [id number] #### [facility] ([facility]) [address] [place] [address] POTASSIUMon 07-25-2024 Potassium [Moles/Vol] 4.8 mmol/L Normal 3.5-5.1 [facility] Comment on above: Performed By: #### L [id number] #### [facility] ([facility]) [address] [place] [address] PROTEIN, URINE, RANDOMon Protein (U) [Mass/Vol] 81.2 mg/dL Normal [facility] Comment on above: Result Comment: Ther e are no established reference values for random urine specimens. Performed By: #### L [id number] ####[facility] ([facility])[address] [place] [address] SODIUM, URINE, RANDOMon 12-0 Sodium (U) [Moles/Vol] 94 mmol/L Normal [facility] Comment on above: Performed By: #### L [id number] #### [facility] ([facility]) [address] [place] [address] URINALYSIS WITH MICROSCOPICo n 07-25-2024 BILIRUBIN, TOTAL PRESENCE IN URINE Negative Normal Negative [facility] Comment on above: Performed By: #### L [id number] ####[facility] ([facility])[address] [place] [address] Clarity (U) Turbid Abnormal Clear [facility] Comment on above: Performed By: #### L [id number] ####[facility] ([facility])[address] [place] [address] Color (U) Dark-Yellow Abnormal Colorless, Yellow, Light-Kane ow [facility] Comment on above: Performed By: #### L [id number] ####[facility] ([facility])[address] [place] [address] Glucose (U) [Mass/Vol] 70 mg/dL Abnormal Normal Un [facility] Comment on above: Performed By: #### L [id number] ####[facility] ([facility])[address] [place] [address] HEMOGLOBIN PRESENCE IN URINE Large Abnormal Negative [facility] Comment on above: Performed By: #### L [id number] ####[facility] ([facility])[address] [place] [address] Ketones Ql (U) Negative Normal Negative [facility] Comment on above: Performed By: #### L [id number] ####[facility] ([facility])[address] [place] [address] LEUKOCYTE ESTERASE PRESENCE IN URINE BY TEST STRIP Large Abnormal Negative [facility] Comment on above: Performed By: #### L [id number] ####[email or web address] ([facility])[address] [place] [address] NITRITE PRESENCE IN URINE Negative Normal Negative [facility] Comment on above: Performed By: #### L [id number] ####[facility] ([facility])[address] [place] [address] pH (U) 6.0 [pH] Normal 5.0-8.0 [facility] Comment on above: Performed By: #### L [id number] ####[facility] ([facility])[address] [place] [address] Protein (U) [Mass/Vol] 30 mg/dL Abnormal Negative [facility] Comment on above: Performed By: #### L [id number] ####[facility] ([facility])[address] [place] [address] RBC (#/HPF) IN URINE SEDIMENT >20 Abnormal None Seen, 0-2 [facility] Comment on above: Performed By: #### L [id number] ####[facility] ([facility])[address] [place] [address] Specific gravity (U) [Rel density] 1.008 Low 1.010-1.03 0 [facility] Comment on above: Performed By: #### L [id number] ####[facility] ([facility])[address] [place] [address] SQUAMOUS EPITHELIAL CELLS (#/LPF) IN URINE SEDIMENT None Seen Normal None Seen, Occasional , Few [facility] Comment on above: Performed By: #### L [id number] ####[facility] [[email or web address] ([facility])[address] [place] [address] UROBILINOGEN (MG/DL) IN URINE Normal Normal Normal [facility] Comment on above: Performed By: #### L [id number] ####[facility] ([facility])[address] [place] [address] WBC (LEUKOCYTE) (#/HPF) IN URINE SEDIMENT >50 Abnormal None Seen, 0-2 [facility] Comment on above: Performed By: #### L [id number] ####[email or web address] ([facility])[address] [place] [address] WBC (LEUKOCYTE) CLUMPS (#/HPF) IN URINE SEDIMENT Present Abnormal None Seen [facility] Comment on above: Performed By: #### L [id number] ####[email or web address] [place] [address] 30on 07-24-2024 30 The patient is Moder ately Stable - Low risk of patient condition declining or worsening The patient's goals for the shift include The clinical goals for the shift include VSS. rest Normal [facility] BASIC METABOLIC PANELon Anion gap [Moles/Vol] 14 mmol/L Normal 7-20 [facility] Comment on above: Performed By: #### L [id number] #### [email or web address] [address] [place] [address] Calcium [Mass/Vol] 8.9 mg/dL Normal 8.6-10.3 [facility] Comment on above: Performed By: #### L [id number] #### [facility] [[email or web address] ([facility]) [address] [place] [address] Chloride [Moles/Vol] 111 mmol/L High 98-107 [facility] Comment on above: Performed By: #### L [id number] #### [facility] [[email or web address] ([facility]) [address] [place] [address] CO2 [Moles/Vol] 17 mmol/L Low 21-31 [facility] Comment on above: Performed By: #### L [id number] #### [facility] [[email or web address] ([facility]) [address] [place] [address] Creatinine [Mass/Vol] 6.20 mg/dL High 0.70-1.30 [facility] Comment on above: Performed By: #### L [id number] #### [facility] [[email or web address] ([facility]) [address] [place] [address] GLOMERULAR FILTRATION RATE ML/MIN/1.73 SQ M.PREDICTED 8.6 mL/min/1.73m*2 Low >60.0 [facility] Comment on above: Result Comment: The [facility]???s estimated glomerular filtration rate (eGFR) will [...] individuals. Performed By: #### L [id number] #### [facility] ([facility]) [address] [place] [address] Glucose [Mass/Vol] 158 mg/dL High 70-100 [facility] Comment on above: Performed By: #### L [id number] #### [facility] ([facility]) [address] [facility] [place] [address] Potassium [Moles/Vol] 5.1 mmol/L Normal 3.5-5.1 [facility] Comment on above: Performed By: #### L [id number] #### [facility] ([facility]) [address] [place] [address] Sodium [Moles/Vol] 137 mmol/L Normal 136-145 [facility] Comment on above: Performed By: #### L [id number] #### [facility] [address] [facility] [place] [address] Urea nitrogen [Mass/Vol] 74 mg/dL High 7-25 [facility] Comment on above: Performed By: #### L [id number] #### [facility] ([facility]) [address] [place] [address] UREA NITROGEN/CREATININE (MASS RATIO) IN SER/PLAS 11.9 Normal [facility] Comment on above: Performed By: #### L [id number] #### [facility] ([facility]) [address] [place] [address] CBCon 07-24-2024 Erythrocyte distribution width (RBC) [Ratio] 15.6 % High 11.5-15.0 [facility] Comment on above: Performed By: #### L [id number] #### [facility] ([facility]) [address] [place] [address] ERYTHROCYTE MEAN CORPUSCULAR HEMOGLOBIN CONCENTRATION (G/DL) BY AUTOMATED 31.8 g/dL Low 32.0-35.0 [facility] Comment on above: Performed By: #### L [id number] #### [facility] ([facility]) [address] [place] [address] Hematocrit (Bld) [Volume fraction] 25.8 % Low 39.0-55.0 [facility] Comment on above: Performed By: #### L [id number] #### [facility] ([facility]) [address] [place] [address] Hemoglobin (Bld) [Mass/Vol] 8.2 g/dL Low 13.0-17.0 [facility] Comment on above: Performed By: #### L [id number] #### [facility] ([facility]) [address] [place] [address] MCH (RBC) [Entitic mass] 34.7 pg High 27.0-33.0 [facility] Comment on above: Performed By: #### L [id number] #### [facility] ([facility]) [address] [place] [address] MCV (RBC) [Entitic vol] 109.3 fL High 82.0-98.0 [facility] Comment on above: Performed By: #### L [id number] #### [facility] ([facility]) [address] [place] [address] PLATELETS (10*3/UL) IN BLOOD AUTOMATED COUNT 152 10*3/uL Normal 150-400 [facility] Comment on above: Performed By: #### L [id number] #### [facility] ([facility]) [address] [place] [address] RBC (Bld) [#/Vol] 2.36 10*6/uL Low 4.20-5.70 [facility] Comment on above: Performed By: #### L [id number] #### [facility] ([facility]) [address] [place] [address] WBC (Bld) [#/Vol] 7.08 10*3/uL Normal 4.00-10.60 [facility] Comment on above: Performed By: #### L [id number] #### [facility] ([facility]) [address] [place] [address] HPon 07-24-2024 HP This report has been cancelled. Normal [facility] MAGNESIUMon 07-24-2024 Magnesium [Mass/Vol] 2.1 mg/dL Normal 1.9-2.7 [facility] Comment on above: Performed By: #### L [id number] #### [facility] ([facility]) [address] [place] [address] POCT GLUCOSE METER UNSOLICIT ED RESULTSon 07-24-2024 Glucose [Mass/Vol] 213 mg/dL High 70-105 [facility] Comment on above: Order Comment: Waive d Testing in the ED is performed under the ED CLIA certificate #[id number]. Result Comment: [email or web address] itn Performed By: #### L [id number] ####[facility] ([facility])[address] [place] [address] Alanine aminotransferase [En zymatic activity/volume] in Serum or PlasmaOrdered By: Brook Huddleston on 06-23-2024 ALT [Catalytic activity/Vol] Alanine aminotransferase [Enzymatic activity/volume] in Serum or Plasma [facility] Albumin [Mass/volume] in Ser um or Plasma by Bromocresol green (BCG) dye binding methoOrdered By: Brook Huddleston on 06-23-2024 Albumin BCG dye [Mass/Vol] Albumin [Mass/volume] in Serum or Plasma by Bromocresol green (BCG) dye binding metho 3.5-5.7 [facility] Alkaline phosphatase [Enzyma tic activity/volume] in Serum or PlasmaOrdered By: Brook Huddleston on 06-23-2024 ALP [Catalytic activity/Vol] Alkaline phosphatase [Enzymatic activity/volume] in Serum or Plasma High 34-104 [facility] Aspartate aminotransferase [ Enzymatic activity/volume] in Serum or PlasmaOrdered By: Brook Huddleston on 06-23-2024 AST [Catalytic activity/Vol] Aspartate aminotransferase [Enzymatic activity/volume] in Serum or Plasma 13-39 [facility] Basophils Auto (Bld) [#/Vol] Ordered By: Brook Huddleston on 06-23-2024 Basophils (Bld) [#/Vol] Automated basophil count 0.0-0.2 [facility] Basophils/100 WBC Auto (Bld) Ordered By: Brook Huddleston on 06-23-2024 Basophils/100 WBC (Bld) Automated basophil % . [facility] Bilirubin.total [Mass/volume ] in Serum or PlasmaOrdered By: Brook Huddleston on 06-23-2024 Bilirubin [Mass/Vol] Bilirubin.total [Mass/volume] in Serum or Plasma 0.3-1.0 [facility] CBC W Auto Differential pane l (Bld)on 06-23-2024 Basophils (Bld) [#/Vol] 0 10*3/uL 0.0 - 0.2 10*3/uL [facility] Basophils/100 WBC Manual cnt (Syn fld) 0.3 % . [facility] Eosinophils (Bld) [#/Vol] 0.4 10*3/uL 0.0 - 0.45 10*3/uL [facility] Eosinophils/100 WBC Manual cnt (Syn fld) 7 % . [facility] Erythrocyte distribution width (RBC) [Ratio] 16.8 % High 12.0 - 14.8 % [facility] Hematocrit (Bld) [Volume fraction] 30.5 % Low 38.8 - 50.0 % [facility] Hemoglobin (Bld) [Mass/Vol] 10.1 g/dL Low 13.0 - 17.0 g/dL [facility] Interpretation and review of laboratory results Abnormal [facility] Lymphocytes (Bld) [#/Vol] 0.7 10*3/uL Low 1.00 - 4.8 [facility]*3/[facility]L [facility] WBC Manual cnt (Syn fld) 13 % . [facility] MCH (RBC) [Entitic mass] 35.5 pg High 27.5 - 35.2 pg [facility] MCHC (RBC) [Mass/Vol] 33.1 g/dL 32.5 - 35.6 g/dL [facility] MCV (RBC) [Entitic vol] 107.2 fL High 83.5 - 101 fL [facility] Monocytes (Bld) [#/Vol] 0.4 10*3/uL 0.0 - 0.8 10*3/uL [facility] Monocytes+Macrophages/1 00 WBC Manual cnt (Syn fld) 7.1 % . [facility] Neutrophils (Bld) [#/Vol] 4 10*3/uL 1.8 - 7.7 10*3/uL [facility] Neutrophils/100 WBC Manual cnt (Syn fld) 72.6 % . [facility] NRBC 0.1 /100{WBC} 0 - 0.5 /100{WBC} [facility] Platelet mean volume (Bld) [Entitic vol] 8.1 fL 6.6 - 10.1 fL [facility] Platelets (Bld) [#/Vol] 183 10*3/uL 150 - 450 10*3/uL [facility] RBC LM.HPF (Urine sed) [#/Area] 2.84 /[HPF] Low 3.90 - 5.60 [facility] WBC (Bld) [#/Vol] 5.5 10*3/uL 4.1 - 10.5 10*3/uL [facility] WBC LM.HPF (Urine sed) [#/Area] 5.5 10*3/uL 4.1 - 10.5 10*3/uL [facility] Calcium [Mass/volume] in Ser um or PlasmaOrdered By: Brook Huddleston on 06-23-2024 Calcium [Mass/Vol] Calcium [Mass/volume ] in Serum or Plasma 8.6-10.3 [facility] Carbon dioxide, total [Moles /volume] in Serum or PlasmaOrdered By: Brook Huddleston on 06-23-2024 CO2 [Moles/Vol] Carbon dioxide, tota l [Moles/volume] in Serum or Plasma 21.0-31.0 [facility] Chloride [Moles/volume] in S valeria or PlasmaOrdered By: Brook Huddleston on 06-23-2024 Chloride [Moles/Vol] Chloride [Moles/vol ume] in Serum or Plasma High 98-107 [facility] Complete Blood Count Auto Di ffon 06-23-2024 Basophils (Bld) [#/Vol] 0.0 10*3/uL Normal 0.0-0.2 [facility] Comment on above: Result Comment: PERF ORMED BY:[address] [place] [id number] MEDICAL DIRECTORMEAGAN HARDING M.D. Performed By: #### C MP, CBC ####[address] Basophils/100 WBC (Bld) 0.3 % Normal . T he [facility] Comment on above: Performed By: #### C MP, CBC ####[address] Eosinophils (Bld) [#/Vol] 0.4 10*3/uL Normal 0.0-0.45 [facility] Comment on above: Performed By: #### C MP, CBC ####[address] Eosinophils/100 WBC (Bld) 7.0 % Normal . [facility] Comment on above: Performed By: #### C MP, CBC ####[place] [id number] [facility] Erythrocyte distribution width (RBC) [Ratio] 16.8 % High 12.0-14.8 [facility] Comment on above: Performed By: #### C MP, CBC ####[address] Hematocrit (Bld) [Volume fraction] 30.5 % Low 38.8-50.0 [facility] Comment on above: Performed By: #### C MP, CBC ####[address] [place] [address] [place] Hemoglobin (Bld) [Mass/Vol] 10.1 g/dL Low 13.0-17.0 [facility] Comment on above: Performed By: #### C MP, CBC ####[address] Lymphocytes (Bld) [#/Vol] 0.7 10*3/uL Low 1.00-4.8 [facility] Comment on above: Performed By: #### C MP, CBC ####[address] Lymphocytes/100 WBC (Bld) 13.0 % Normal . [facility] [facility] Comment on above: Performed By: #### C MP, CBC ####[address] MCH (RBC) [Entitic mass] 35.5 pg High 27.5-35.2 [facility] Comment on above: Performed By: #### C MP, CBC ####[address] MCV (RBC) [Entitic vol] 107.2 fL High 83.5-101 [facility] Comment on above: Performed By: #### C MP, CBC ####[address] Mean Corpuscular HGB Conc 33.1 g/dL Normal 32.5-35.6 [facility] Comment on above: Performed By: #### C MP, CBC ####[address] Monocytes (Bld) [#/Vol] 0.4 10*3/uL Normal 0.0-0.8 [facility] Comment on above: Performed By: #### C MP, CBC ####[address] Monocytes/100 WBC (Bld) 7.1 % Normal . [facility] Comment on above: Performed By: #### C MP, CBC ####[address] [place] [address] [place] Neutrophils (Bld) [#/Vol] 4.0 10*3/uL Normal 1.8-7.7 [facility] Comment on above: Performed By: #### C MP, CBC ####[address] Neutrophils/100 WBC (Bld) 72.6 % Normal . [facility] Comment on above: Performed By: #### C MP, CBC ####[address] NRBC% 0.1 /100{WBC} Normal 0-0.5 [facility] Comment on above: Performed By: #### C MP, CBC ####[address] Platelet mean volume (Bld) [Entitic vol] 8.1 fL Normal 6.6-10.1 [facility] Comment on above: Performed By: #### C MP, CBC ####[address] Platelets (Bld) [#/Vol] 183 10*3/uL Normal 150-450 [facility] Comment on above: Performed By: #### C MP, CBC ####[address] RBC (Bld) [#/Vol] 2.84 10*6/uL Low 3.90-5.60 [facility] Comment on above: Performed By: #### C MP, CBC ####[address] WBC (Bld) [#/Vol] 5.5 10*3/uL Normal 4.1-10.5 [facility] Comment on above: Performed By: #### C MP, CBC ####[place] [id number] [facility] Comprehensive Metabolic Pane mana 06-23-2024 Albumin [Mass/Vol] 3.9 g/dL Normal 3.5-5.7 [facility] Comment on above: Performed By: #### C MP, CBC ####[address] [address] [facility] Albumin/Globulin [Mass ratio] 1.6 {ratio} Normal [facility] Comment on above: Performed By: #### C MP, CBC ####[address] [address] [facility] ALP [Catalytic activity/Vol] 131 U/L High 34-104 [facility] Comment on above: Performed By: #### C MP, CBC ####[place] [id number] [facility] ALT [Catalytic activity/Vol] 34 U/L Normal 7-52 [facility] Comment on above: Performed By: #### C MP, CBC ####[place] [id number] [facility] Anion gap [Moles/Vol] 11.1 mmol/L Normal 6.0-15.0 [facility] Comment on above: Performed By: #### C MP, CBC ####[place] [id number] [facility] AST [Catalytic activity/Vol] 26 U/L Normal 13-39 [facility] Comment on above: Performed By: #### C MP, CBC ####[place] [id number] [facility] Bilirubin [Mass/Vol] 0.5 mg/dL Normal 0.3-1.0 [facility] Comment on above: Performed By: #### C MP, CBC ####[place] [id number] [facility] Calcium [Mass/Vol] 8.6 mg/dL Normal 8.6-10.3 [facility] Comment on above: Performed By: #### C MP, CBC ####[place] [id number] [facility] Chloride [Moles/Vol] 108 mmol/L High 98-107 [facility] Comment on above: Performed By: #### C MP, CBC ####[place] [id number] [place] CO2 [Moles/Vol] 23.7 mmol/L Normal 21.0-31.0 [facility] Comment on above: Performed By: #### C MP, CBC ####[address] Creatinine [Mass/Vol] 2.29 mg/dL High 0.70-1.30 [facility] Comment on above: Performed By: #### C MP, CBC ####[address] Creatinine Clr Calc Pharmacy 29.52 Normal [facility] Comment on above: Result Comment: PERF ORMED BY:[address] [place], [place] [phone] MEDICAL DIRECTORMEAGAN HARDING M.D. Performed By: #### C MP, CBC ####[address] GFR/1.73 sq M.predicted MDRD (S/P/Bld) [Vol rate/Area] 28.327 mL/min/{1.73_m2} Normal [facility] Comment on above: Performed By: #### C MP, CBC ####[address] Globulin (S) [Mass/Vol] 2.4 g/dL Normal T he [facility] Comment on above: Performed By: #### C MP, CBC ####[address] Glucose [Mass/Vol] 205 mg/dL High 70-100 [facility] Comment on above: Result Comment: [place] Glucose Reference Range is dependent on time and content of last meal. Glucose of more than 200 mg/dL in a nonstressed, ambulatory subject supports the diagnosis of Diabetes Mellitus. ADA recommended reference range Performed By: #### C MP, CBC ####[address] Potassium [Moles/Vol] 4.8 mmol/L Normal 3.5-5.1 [facility] Comment on above: Performed By: #### C MP, CBC ####[facility] [place] [id number] [facility] Protein [Mass/Vol] 6.3 g/dL Low 6.4-8.9 [facility] Comment on above: Performed By: #### C MP, CBC ####[place] [id number] [place] [id number] [facility] Sodium [Moles/Vol] 138 mmol/L Normal 136-145 [facility] Comment on above: Performed By: #### C MP, CBC ####[facility] [place] [id number] [facility] Urea nitrogen [Mass/Vol] 27 mg/dL High 7-25 [facility] Comment on above: Performed By: #### C MP, CBC ####[facility] [place] [id number] [facility] Comprehensive metabolic pane mana 06-23-2024 Albumin [Mass/Vol] 3.9 g/dL 3.5 - 5.7 g/dL [facility] Albumin/Globulin [Mass ratio] 1.6 {ratio} [facility] ALP [Catalytic activity/Vol] 131 U/L High 34 - 104 U/L [facility] ALT [Catalytic activity/Vol] 34 U/L 7 - 52 U/L [facility] Anion gap [Moles/Vol] 11.1 mmol/L 6.0 - 15.0 [facility] AST [Catalytic activity/Vol] 26 U/L 13 - 39 U/L [facility] Bilirubin [Mass/Vol] 0.5 mg/dL 0.3 - 1 .0 mg/dL [facility] Calcium [Mass/Vol] 8.6 mg/dL 8.6 - 10. 3 mg/dL [facility] Chloride [Moles/Vol] 108 mmol/L High 98 - 10 7 mmol/L [facility] CO2 [Moles/Vol] 23.7 mmol/L 21.0 - 31.0 mmol/L [facility] Creatinine (U) [Mass/Vol] 2.29 mg/dL High 0.70 - 1.30 mg/dL [facility] CREATININE CLR CALC PHARMACY 29.52 [facility] GFR/1.73 sq M.predicted MDRD (S/P/Bld) [Vol rate/Area] 28.327 mL/min/{1.73_m2} [facility] Globulin (S) [Mass/Vol] 2.4 g/dL N [facility] Glucose [Mass/Vol] 205 mg/dL High 70 - 100 mg/dL [facility] Comment on above: Random Glucose Refer ence Range is dependent on time and content of last meal. Glucose of more than 200 mg/dL in a nonstressed, ambulatory subject supports the diagnosis of Diabetes Mellitus. ADA recommended reference range Interpretation and review of laboratory results Abnormal [facility] Potassium [Moles/Vol] 4.8 mmol/L 3.5 - 5.1 mmol/L [facility] Protein [Mass/Vol] 6.3 g/dL Low 6.4 - 8.9 g/dL [facility] Sodium [Moles/Vol] 138 mmol/L 136 - 145 mmol/L [facility] Urea nitrogen [Mass/Vol] 27 mg/dL High 7 - 25 mg/dL [facility] Creatinine [Mass/volume] in Serum or PlasmaOrdered By: Brook Huddleston on 06-23-2024 Creatinine [Mass/Vol] Creatinine [Mass/v olume] in Serum or Plasma High 0.70-1.30 [facility] Creatinine [Mass/volume] in UrineOrdered By: Price Crain on 06-23-2024 Creatinine (U) [Mass/Vol] Creatinine [Mass/volume] in Urine [facility] Eosinophils Auto (Bld) [#/Vo l]Ordered By: Brook Huddleston on 06-23-2024 Eosinophils (Bld) [#/Vol] Automated eosinophil count 0.0-0.45 [facility] Eosinophils/100 WBC Auto (Bl d)Ordered By: Brook Huddleston on 06-23-2024 Eosinophils/100 WBC (Bld) Automated eosinophil % . [facility] Erythrocyte distribution wid th Auto (RBC) [Ratio]Ordered By: Brook Huddleston on 06-23-2024 Erythrocyte distribution width (RBC) [Ratio] Erythrocyte distribution width [Ratio] by Automated count High 12.0-14.8 [facility] Globulin Calc (S) [Mass/Vol] Ordered By: Brook Huddleston on 06-23-2024 Globulin (S) [Mass/Vol] Serum globulin m easurement by calculation (mass/volume) [facility] Glucose [Mass/volume] in Ser um or PlasmaOrdered By: Brook Huddleston on 06-23-2024 Glucose [Mass/Vol] Glucose [Mass/volume ] in Serum or Plasma High 70-100 [facility] Hematocrit Auto (Bld) [Volum e fraction]Ordered By: Brook Huddleston on 06-23-2024 Hematocrit (Bld) [Volume fraction] Hematocrit [Volume Fraction] of Blood by Automated count Low 38.8-50.0 [facility] Hemoglobin [Mass/volume] in BloodOrdered By: Brook Huddleston on 06-23-2024 Hemoglobin (Bld) [Mass/Vol] Hemoglobin [Mass/volume] in Blood Low 13.0-17.0 [facility] Leukocytes [#/volume] correc lizbet for nucleated erythrocytes in Blood by Automated counOrdered By: Brook Huddleston on 06-23-2024 WBC corrected for nucl RBC Auto (Bld) [#/Vol] Leukocytes [#/volume] corrected for nucleated erythrocytes in Blood by Automated coun 4.1-10.5 [facility] Lymphocytes Auto (Bld) [#/Vo l]Ordered By: Brook Huddleston on 06-23-2024 Lymphocytes (Bld) [#/Vol] Lymphocytes [#/volume] in Blood by Automated count Low 1.00-4.8 [facility] Lymphocytes/100 WBC Auto (Bl d)Ordered By: Brook Huddleston on 06-23-2024 Lymphocytes/100 WBC (Bld) Lymphocytes/100 leukocytes in Blood by Automated count . [facility] MCH Auto (RBC) [Entitic mass ]Ordered By: Brook Huddleston on 06-23-2024 MCH (RBC) [Entitic mass] MCH [Entitic mass] by Automated count High 27.5-35.2 [facility] MCHC Auto (RBC) [Mass/Vol]Or dered By: Brook Huddleston on 06-23-2024 MCHC (RBC) [Mass/Vol] MCHC [Mass/volume] by Automated count 32.5-35.6 [facility] MCV Auto (RBC) [Entitic vol] Ordered By: Brook Huddleston on 06-23-2024 MCV (RBC) [Entitic vol] MCV [Entitic vol ume] by Automated count High 83.5-101 [facility] Magnesiumon 06-23-2024 Magnesium [Mass/Vol] 2.2 mg/dL Normal 1.9-2.7 [facility] Comment on above: Performed By: #### M G, URIC, [id number], PHOS, PTH ####[facility] [id number] [place] [id number] [facility] Magnesium [Mass/volume] in S valeria or PlasmaOrdered By: Price Crain on 06-23-2024 Magnesium [Mass/Vol] Magnesium [Mass/vol ume] in Serum or Plasma 1.9-2.7 [facility] Monocytes Auto (Bld) [#/Vol] Ordered By: Brook Huddleston on 06-23-2024 Monocytes (Bld) [#/Vol] Automated blood monocyte count 0.0-0.8 [facility] Monocytes/100 WBC Auto (Bld) Ordered By: Brook Huddleston on 06-23-2024 Monocytes/100 WBC (Bld) Automated monocyte % . [facility] Neutrophils Auto (Bld) [#/Vo l]Ordered By: Brook Huddleston on 06-23-2024 Neutrophils (Bld) [#/Vol] Neutrophils [#/volume] in Blood by Automated count 1.8-7.7 [facility] Neutrophils/100 WBC Auto (Bl d)Ordered By: Brook Huddleston on 06-23-2024 Neutrophils/100 WBC (Bld) Automated neutrophil % . [facility] No Panel InformationOrdered By: Brook Huddleston on 06-23-2024 28.327 mL/Min [facility] 29.52 [facility] Nucleated erythrocytes [Pres ence] in Blood by Automated countOrdered By: Brook Huddleston on 06-23-2024 Nucleated RBC Auto Ql (Bld) Nucleated erythrocytes [Presence] in Blood by Automated count 0-0.5 [facility] Parathyrin.intact [Mass/volu me] in Serum or PlasmaOrdered By: Price Crain on 06-23-2024 Parathyrin.intact [Mass/Vol] Parathyrin.intact [Mass/volume] in Serum or Plasma 12 [facility] Parathyroid Hormone Intacton 06-23-2024 Parathyroid Hormone Intact 65.4 pg/mL Normal 12-88 [facility] Comment on above: Result Comment: PERF ORMED BY:[address] [place], [place] [phone] MEDICAL DIRECTORMEAGAN HARDING M.D. Performed By: #### M G, URIC, [id number], PHOS, PTH ####[address] [address] [facility] Phosphate [Mass/volume] in S valeria or PlasmaOrdered By: Price Crain on 06-23-2024 Phosphate [Mass/Vol] Phosphate [Mass/vol ume] in Serum or Plasma 2.5-4.5 [facility] Phosphoruson 06-23-2024 Phosphate [Mass/Vol] 2.7 mg/dL Normal 2.5-4.5 [facility] Comment on above: Performed By: #### M G, URIC, [id number], PHOS, PTH ####[address] [address] [facility] Platelet mean volume Auto (B ld) [Entitic vol]Ordered By: Brook Huddleston on 06-23-2024 Platelet mean volume (Bld) [Entitic vol] Platelet mean volume [Entitic volume] in Blood by Automated count 6.6-10.1 [facility] Platelets Auto (Bld) [#/Vol] Ordered By: Brook Huddleston on 06-23-2024 Platelets (Bld) [#/Vol] Platelets [#/vol ume] in Blood by Automated count 150-450 [facility] Potassium [Moles/volume] in Serum or PlasmaOrdered By: Brook Huddleston on 06-23-2024 Potassium [Moles/Vol] Potassium [Moles/v olume] in Serum or Plasma 3.5-5.1 [facility] Protein Creat Ratio Ur Rando mon 06-23-2024 Creatinine, Urine (Random) 124.00 mg/dL Normal [facility] Comment on above: Result Comment: No r eference range established Performed By: #### P ROCRERAT ####[address] [place] [address] [facility] Protein (U) [Mass/Vol] 362 mg/dL High 0-9 Th e [facility] Comment on above: Performed By: #### P ROCRERAT ####[address] [address] [facility] Urine Protein/Creatinine Ratio Not performed Normal 0-200 [facility] Comment on above: Result Comment: PERF ORMED BY:[address] [place], [place] [phone] MEDICAL DIRECTORMEAGAN HARDING M.D. Performed By: #### P ROCRERAT ####[address] [address] [facility] Protein [Mass/volume] in Ser um or PlasmaOrdered By: Brook Huddleston on 06-23-2024 Protein [Mass/Vol] Protein [Mass/volume ] in Serum or Plasma Low 6.4-8.9 [facility] Protein [Mass/volume] in Uri neOrdered By: Price Crain on 06-23-2024 Protein (U) [Mass/Vol] Protein [Mass/vol ume] in Urine High 0-9 [facility] RBC Auto (Bld) [#/Vol]Ordere d By: Brook Huddleston on 06-23-2024 RBC (Bld) [#/Vol] Erythrocytes [#/volu me] in Blood by Automated count Low 3.90-5.60 [facility] Serum or plasma albumin/glob ulin mass ratioOrdered By: Brook Huddleston on 06-23-2024 Albumin/Globulin [Mass ratio] Serum or plasma albumin/globulin mass ratio [facility] Serum or plasma anion gap de terminationOrdered By: Brook Huddleston on 06-23-2024 Anion gap [Moles/Vol] Serum or plasma an ion gap determination 6.0-15.0 [facility] Sodium [Moles/volume] in Ser um or PlasmaOrdered By: Brook Huddleston on 06-23-2024 Sodium [Moles/Vol] Sodium [Moles/volume ] in Serum or Plasma 136-145 [facility] Urate [Mass/volume] in Serum or PlasmaOrdered By: Price Crain on 06-23-2024 Urate [Mass/Vol] Urate [Mass/volume] in Serum or Plasma 4.4-7.6 [facility] Urea nitrogen [Mass/volume] in Serum or PlasmaOrdered By: Brook Huddleston on 06-23-2024 Urea nitrogen [Mass/Vol] Urea nitrogen [Mass/volume] in Serum or Plasma High 7-25 [facility] Uric Acidon 06-23-2024 Urate [Mass/Vol] 4.5 mg/dL Normal 4.4-7.6 [facility] Comment on above: Performed By: #### M G, URIC, [id number], PHOS, PTH ####[place] [id number] [place] [address] [facility] Urine protein/creatinine rat ioOrdered By: Price Crain on 06-23-2024 Protein/Creatinine (U) [Ratio] Urine protein/creatinine ratio [facility] Vitamin D 25 Hydroxy Totalon 06-23-2024 Vitamin D 25 Hydroxy Total 64.1 ng/mL Normal 30-100 [facility] Comment on above: Result Comment: ALEJA MIN D STATUS 25(OH)VITAMIN D RANGE (ng/mL) Deficient <20 Insufficient 20 to <30 Sufficient 30 to 100 Reference: Dieudonne MF,Brendon NC, Estrella CARTER, et al. Evaluation,treatment, and prevention of vitamin D deficiency; an Endocrine Society clinical practice guideline. JCEM. 2010; 96(7):1911-30.PERFORMED BY:[facility] [place], [place] [phone] MEDICAL DIRECTORMEAGAN HARDING M.D. Performed By: #### M G, URIC, [id number], PHOS, PTH ####[facility] [place] [address] [facility] Vitamin D+Metabolites [Mass/ volume] in Serum or PlasmaOrdered By: Price Crain on 06-23-2024 Vitamin D+Metabolites [Mass/Vol] Vitamin D+Metabolites [Mass/volume] in Serum or Plasma 30-100 [facility] WBC Auto (Bld) [#/Vol]Ordere d By: Brook Huddleston on 06-23-2024 WBC (Bld) [#/Vol] Leukocytes [#/volume ] in Blood by Automated count 4.1-10.5 [facility] Ambulatory Visit Summaryon 1 Ambulatory Visit Summary [...] PM EST With: CARLEY Damian APRN, Makayla Soriano Where: [facility] [address] [place] [address]- You Need to Schedule the Following Appointments [...] prostate is (more content not included)... Normal [facility] Urology Office/Clinic Noteon 06-10-2024 Urology Office/Clinic [...] 08/27/22 - Incidental finding of prostatic adenocarcinoma. Selene 7 (3+4), GG2. Only 6-10% of Selene 4 present. 7 of 78 prostate chips involved. No adverse pathology. Decipher testing 08/27/22 - High genomic risk. Not ideal surgical candidate (prostatectomy) due to age, comorbidities. [1] MRI prostate 11/11/22 [facility] - Prostate volume [...] RGP, sten (more content not included)... Normal [facility] Comment on above: Result Comment: Elec tronically Signed By: Orquidea Cortez MD\.br\Date and Time Signed: 06/10/24 13:53 EDT\.br\Electronically Co-Signed By: Valentina Sharp\.br\Date and Time Co-Signed: 06/10/24 12:23 EDT Albumin [Mass/volume] in Ser um or Plasma by Bromocresol green (BCG) dye binding methoOrdered By: Domonique Rahman on 06-08-2024 Albumin BCG dye [Mass/Vol] 3.7 g/dL 3.5-5.7 [facility] Albumin BCG dye [Mass/Vol] Albumin [Mass/volume] in Serum or Plasma by Bromocresol green (BCG) dye binding metho 3.5-5.7 [facility] Calcium [Mass/volume] in Ser um or PlasmaOrdered By: Domonique Rahman on 06-08-2024 Calcium [Mass/Vol] 8.8 mg/dL Normal 8.6-10.3 [facility] Comment on above: Order Comment: Comme nt Results to Dr. Crain Performed By: #### R ENAL ####[address] Calcium [Mass/Vol] Calcium [Mass/volume ] in Serum or Plasma 8.6-10.3 [facility] Carbon dioxide, total [Moles /volume] in Serum or PlasmaOrdered By: Domonique Rahman on 06-08-2024 CO2 [Moles/Vol] 24.7 mmol/L Normal 21.0-31.0 [facility] Comment on above: Order Comment: Comme nt Results to Dr. Crain Performed By: #### R ENAL ####[address] CO2 [Moles/Vol] Carbon dioxide, tota l [Moles/volume] in Serum or Plasma 21.0-31.0 [facility] Chloride [Moles/volume] in S valeria or PlasmaOrdered By: Domonique Rahman on 06-08-2024 Chloride [Moles/Vol] 110 mmol/L High 98-107 [facility] Comment on above: Order Comment: Comme nt Results to Dr. Crain Performed By: #### R ENAL ####[address] Chloride [Moles/Vol] Chloride [Moles/vol ume] in Serum or Plasma High 98-107 [facility] Creatinine [Mass/volume] in Serum or PlasmaOrdered By: Domonique Rahman on 06-08-2024 Creatinine [Mass/Vol] 2.30 mg/dL High 0.70-1.30 [facility] Comment on above: Order Comment: Comme nt Results to Dr. Crain Performed By: #### R ENAL ####[address] [id number] [place] [address] [facility] Creatinine [Mass/Vol] Creatinine [Mass/v olume] in Serum or Plasma High 0.70-1.30 [facility] Glucose [Mass/volume] in Ser um or PlasmaOrdered By: Domonique Rahman on 06-08-2024 Glucose [Mass/Vol] 121 mg/dL High 70-100 [facility] Comment on above: ADA recommended refe rence rangeRandom Glucose Reference Range is dependent on time and content of last meal. Glucose of more than 200 mg/dL in a nonstressed, ambulatory subject supports the diagnosis of Diabetes Mellitus. Order Comment: Comme nt Results to Dr. Crain Result Comment: [place] om Glucose Reference Range is dependent on time and content of last meal. Glucose of more than 200 mg/dL in a nonstressed, ambulatory subject supports the diagnosis of Diabetes Mellitus. ADA recommended reference range Performed By: #### R ENAL ####[address] [address] [facility] Glucose [Mass/Vol] Glucose [Mass/volume ] in Serum or Plasma High 70-100 [facility] No Panel InformationOrdered By: Domonique Rahman on 06-08-2024 Estimated GFR (CKD-EPI) 28.179 mL/Min [facility] Creatinine Clearance (Chem N/A [facility] 28.179 mL/Min [facility] N/A [facility] Phosphate [Mass/volume] in S valeria or PlasmaOrdered By: Domonique Rahman on 06-08-2024 Phosphate [Mass/Vol] 3.5 mg/dL Normal 2.5-4.5 [facility] Comment on above: Order Comment: Comme nt Results to Dr. Crain Performed By: #### R ENAL ####[address] [address] [place] Phosphate [Mass/Vol] Phosphate [Mass/vol ume] in Serum or Plasma 2.5-4.5 [facility] Potassium [Moles/volume] in Serum or PlasmaOrdered By: Domonique Rahman on 06-08-2024 Potassium [Moles/Vol] 4.7 mmol/L Normal 3.5-5.1 [facility] Comment on above: Order Comment: Comme nt Results to Dr. Crain Performed By: #### R ENAL ####[place] [id number] [facility] Potassium [Moles/Vol] Potassium [Moles/v olume] in Serum or Plasma 3.5-5.1 [facility] Renal Function Panelon 06-08 Albumin [Mass/Vol] 3.7 g/dL Normal 3.5-5.7 [facility] Comment on above: Order Comment: Comme nt Results to Dr. rCain Result Comment: PERF ORMED BY:[address] [place], [place] [phone] MEDICAL DIRECTORMEAGAN HARDING M.D. Performed By: #### R ENAL ####[place] [id number] [facility] GFR/1.73 sq M.predicted MDRD (S/P/Bld) [Vol rate/Area] 28.179 mL/min/{1.73_m2} Normal [facility] Comment on above: Order Comment: Comme nt Results to Dr. Crain Performed By: #### R ENAL ####[place] [id number] [facility] Serum or plasma anion gap de terminationOrdered By: Domonique Rahman on 06-08-2024 Anion gap [Moles/Vol] 10.0 mmol/L Normal 6.0-15.0 [facility] Comment on above: Order Comment: Comme nt Results to Dr. Crain Performed By: #### R ENAL ####[place] [id number] [facility] Anion gap [Moles/Vol] Serum or plasma an ion gap determination 6.0-15.0 [facility] Sodium [Moles/volume] in Ser um or PlasmaOrdered By: Domonique Rahman on 06-08-2024 Sodium [Moles/Vol] 140 mmol/L Normal 136-145 [facility] Comment on above: Order Comment: Comme nt Results to Dr. Crain Performed By: #### R ENAL ####[place] [address] [place] [address] [facility] Sodium [Moles/Vol] Sodium [Moles/volume ] in Serum or Plasma 136-145 [facility] Urea nitrogen [Mass/volume] in Serum or PlasmaOrdered By: Domonique Rahman on 06-08-2024 Urea nitrogen [Mass/Vol] 36 mg/dL High 03-10 [facility] Comment on above: Order Comment: Comme nt Results to Dr. Crain Performed By: #### R ENAL ####[address] [place] [address] [facility] Urea nitrogen [Mass/Vol] Urea nitrogen [Mass/volume] in Serum or Plasma High 03-10 [facility] Basic Metabolic Panelon 05-18 Creatinine Clr Calc Pharmacy 23.26 Normal [facility] Comment on above: Result Comment: PERF ORMED BY:[address] [place], [place] [phone] MEDICAL ANYA HARDING M.D. Performed By: #### B GUERRERO WATSONNO ####[address] [address] [place] GFR/1.73 sq M.predicted MDRD (S/P/Bld) [Vol rate/Area] 20.903 mL/min/{1.73_m2} Normal [facility] Comment on above: Performed By: #### B GUERRERO WATSONNO ####[address] [place] [address] [place] Calcium [Mass/volume] in Ser um or PlasmaOrdered By: Mayda Matthews on 06-05-2024 Calcium [Mass/Vol] 8.5 mg/dL Low 8.6-10.3 [facility] Comment on above: Performed By: #### B ISAK WATSON ####[address] [place] [address] [facility] Calcium [Mass/Vol] Calcium [Mass/volume ] in Serum or Plasma Low 8.6-10.3 [facility] Capillary blood glucose reese urement by glucometer (mass/volume)Ordered By: Mayda Matthews on 06-05-2024 Glucose [Mass/Vol] 160 mg/dL Normal [facility] Comment on above: Random Glucose Refer ence Range is dependent on time and content of last meal. Glucose of more than 200 mg/dL in a nonstressed, ambulatory subject supports the diagnosis of Diabetes Mellitus. Result Comment: [place] om Glucose Reference Range is dependent on time and content of last meal. Glucose of more than 200 mg/dL in a nonstressed, ambulatory subject supports the diagnosis of Diabetes Mellitus.PERFORMED BY:[place] [address] [place], [place] [phone] MEDICAL DIRECTORMEAGAN HARDING M.D. Performed By: #### G ANH ####Point of Care testing, Carbon dioxide, total [Moles /volume] in Serum or PlasmaOrdered By: Mayda Matthews on 06-05-2024 CO2 [Moles/Vol] 23.3 mmol/L Normal 21.0-31.0 [facility] Comment on above: Performed By: #### B ISAK WATSON ####[address] [address] [facility] CO2 [Moles/Vol] Carbon dioxide, tota l [Moles/volume] in Serum or Plasma 21.0-31.0 [facility] Chloride [Moles/volume] in S valeria or PlasmaOrdered By: Mayda Matthews on 06-05-2024 Chloride [Moles/Vol] 109 mmol/L High 98-107 [facility] Comment on above: Performed By: #### B ISAK WATSON ####[address] [place] [address] [facility] Chloride [Moles/Vol] Chloride [Moles/vol ume] in Serum or Plasma High 98-107 [facility] Creatinine [Mass/volume] in Serum or PlasmaOrdered By: Mayda Matthews on 06-05-2024 Creatinine [Mass/Vol] 2.95 mg/dL High 0.70-1.30 [facility] Comment on above: Performed By: #### B WALTER, CBCNO ####[facility] [id number] [place] [id number] [facility] Creatinine [Mass/Vol] Creatinine [Mass/v olume] in Serum or Plasma High 0.70-1.30 [facility] Erythrocyte distribution wid th Auto (RBC) [Ratio]Ordered By: Mayda Matthews on 06-05-2024 Erythrocyte distribution width (RBC) [Ratio] Erythrocyte distribution width [Ratio] by Automated count High 12.0-14.8 [facility] Erythrocyte distribution wid th [Ratio] by Automated countOrdered By: Mayda Matthews on 06-05-2024 Erythrocyte distribution width (RBC) [Ratio] 16.5 % High 12.0-14.8 [facility] Comment on above: Performed By: #### B WALTER, CBCNO ####[facility] [id number] [place], [place] [id number] [facility] Erythrocytes [#/volume] in B lood by Automated countOrdered By: Mayda Matthews on 06-05-2024 RBC (Bld) [#/Vol] 2.68 10*6/uL Low 3.90-5.60 [facility] Comment on above: Performed By: #### B WALTER, CBCNO ####[facility] [id number] [place] [id number] [facility] Glucose Glucometer (BldC) [M ass/Vol]Ordered By: Mayda Matthews on 06-05-2024 Glucose [Mass/Vol] Capillary blood gluc ose measurement by glucometer (mass/volume) [facility] Glucose Poct Glucometerson 1 Commemt1 Glu2: Cleaned Meter Normal [facility] Comment on above: Result Comment: PERF ORMED BY:[place] [address] [phone] MEDICAL DIRECTORMEAGAN HARDING M.D. Performed By: #### G LULS ####Point of Care testing, Glucose [Mass/Vol] 117 mg/dL Normal [facility] Comment on above: Result Comment: [place] Glucose Reference Range is dependent on time and content of last meal. Glucose of more than 200 mg/dL in a nonstressed, ambulatory subject supports the diagnosis of Diabetes Mellitus. Performed By: #### G LULS ####Point of Care testing, Commemt1 Glu2: Cleaned Meter Normal [facility] Comment on above: Result Comment: PERF ORMED BY:[facility] [place], [place] [phone] MEDICAL DIRECTORMEAGAN HARDING M.D. Performed By: #### G LULS ####Point of Care testing, Glucose [Mass/Vol] 62 mg/dL Normal [facility] Comment on above: Result Comment: [facility] [address] [...] 06-05-2024 Glucose [Mass/Vol] 65 mg/dL Low 70-100 [facility] Comment on above: ADA recommended refe rence rangeRandom Glucose Reference Range is dependent on time and content of last meal. Glucose of more than 200 mg/dL in a nonstressed, ambulatory subject supports the diagnosis of Diabetes Mellitus. Result Comment: [place] Glucose Reference Range is dependent on time and content of last meal. Glucose of more than 200 mg/dL in a nonstressed, ambulatory subject supports the diagnosis of Diabetes Mellitus. ADA recommended reference range Performed By: #### B MP, CBCNO ####[facility] [id number] [place] [address] [facility] Glucose [Mass/Vol] Glucose [Mass/volume ] in Serum or Plasma Low 70-100 [facility] Hematocrit Auto (Bld) [Volum e fraction]Ordered By: Mayda Senr on 06-05-2024 Hematocrit (Bld) [Volume fraction] Hematocrit [Volume Fraction] of Blood by Automated count Low 38.8-50.0 [facility] Hematocrit [Volume Fraction] of Blood by Automated countOrdered By: Mayda Senr on 06-05-2024 Hematocrit (Bld) [Volume fraction] 27.9 % Low 38.8-50.0 [facility] Comment on above: Performed By: #### B MP, CBCNO ####[facility] [id number] Hemoglobin [Mass/volume] in BloodOrdered By: Mayda Matthews on 06-05-2024 Hemoglobin (Bld) [Mass/Vol] 9.4 g/dL Low 13.0-17.0 [facility] Comment on above: Performed By: #### B WALTER, CBCNO ####[address] Hemoglobin (Bld) [Mass/Vol] Hemoglobin [Mass/volume] in Blood Low 13.0-17.0 [facility] Hemogram CBC Without Diffon 06-05-2024 Mean Corpuscular HGB Conc 33.7 g/dL Normal 32.5-35.6 [facility] Comment on above: Performed By: #### B MP, CBCNO ####[facility] [id number] [place] [address] WBC (Bld) [#/Vol] 5.0 10*3/uL Normal 4.1-10.5 [facility] Comment on above: Performed By: #### B MP, CBCNO ####[place] [id number] [facility] Leukocytes [#/volume] correc lizbet for nucleated erythrocytes in Blood by Automated counOrdered By: Mayda Matthews on 06-05-2024 WBC corrected for nucl RBC Auto (Bld) [#/Vol] 5.0 10*3/uL 4.1-10.5 [facility] WBC corrected for nucl RBC Auto (Bld) [#/Vol] Leukocytes [#/volume] corrected for nucleated erythrocytes in Blood by Automated coun 4.1-10.5 [facility] MCH Auto (RBC) [Entitic mass ]Ordered By: Mayda Matthews on 06-05-2024 MCH (RBC) [Entitic mass] MCH [Entitic mass] by Automated count 27.5-35.2 [facility] MCH [Entitic mass] by Automa lizbet countOrdered By: Mayda Matthews on 06-05-2024 MCH (RBC) [Entitic mass] 35.2 pg Normal 27.5-35.2 [facility] Comment on above: Performed By: #### B MP, CBCNO ####[facility] [id number] MCHC Auto (RBC) [Mass/Vol]Or dered By: Mayda Matthews on 06-05-2024 MCHC (RBC) [Mass/Vol] 33.7 g/dL 32.5-35.6 [facility] MCHC (RBC) [Mass/Vol] MCHC [Mass/volume] by Automated count 32.5-35.6 [facility] MCV Auto (RBC) [Entitic vol] Ordered By: Mayda Matthews on 06-05-2024 MCV (RBC) [Entitic vol] MCV [Entitic vol ume] by Automated count High 83.5-101 [facility] MCV [Entitic volume] by Auto mated countOrdered By: Mayda Matthews on 06-05-2024 MCV (RBC) [Entitic vol] 104.3 fL High 83.5-101 F [facility] Comment on above: Performed By: #### B MP, CBCNO ####[facility] [id number] No Panel InformationOrdered By: Mayda Matthews on 06-05-2024 Bedside Glucose Comment Glu2: cleaned meter [facility] Glu2: cleaned meter [facility] Estimated GFR (CKD-EPI) 20.903 mL/Min [facility] Creatinine Clearance (Chem 23.26 [facility] 20.903 mL/Min [facility] 23.26 [facility] Platelet mean volume Auto (B ld) [Entitic vol]Ordered By: Obaydah Daromar on 06-05-2024 Platelet mean volume (Bld) [Entitic vol] Platelet mean volume [Entitic volume] in Blood by Automated count 6.6-10.1 [facility] Platelet mean volume [Entiti c volume] in Blood by Automated countOrdered By: Obaydah Daromar on 06-05-2024 Platelet mean volume (Bld) [Entitic vol] 8.1 fL Normal 6.6-10.1 [facility] Comment on above: Result Comment: PERF ORMED BY:[address] [place], [place] [phone] MEDICAL DIRECTORMEAGAN HARDING M.D. Performed By: #### B ISAK WATSON ####[address] [address] [place] Platelets Auto (Bld) [#/Vol] Ordered By: Obaydah Daromar on 06-05-2024 Platelets (Bld) [#/Vol] Platelets [#/vol ume] in Blood by Automated count Low 150-450 [facility] Platelets [#/volume] in Bloo d by Automated countOrdered By: Obfrankidah Daromar on 06-05-2024 Platelets (Bld) [#/Vol] 145 10*3/uL Low 150-450 [facility] Comment on above: Performed By: #### B GUERRERO WATSONNO ####[address] [address] [place] Potassium [Moles/volume] in Serum or PlasmaOrdered By: Obfrankidah Daromar on 06-05-2024 Potassium [Moles/Vol] 4.3 mmol/L Normal 3.5-5.1 [facility] Comment on above: Performed By: #### B GUERRERO WATSONNO ####[address] [address] [place] Potassium [Moles/Vol] Potassium [Moles/v olume] in Serum or Plasma 3.5-5.1 [facility] RBC Auto (Bld) [#/Vol]Ordere d By: Mayda Matthews on 06-05-2024 RBC (Bld) [#/Vol] Erythrocytes [#/volu me] in Blood by Automated count Low 3.90-5.60 [facility] Serum or plasma anion gap de terminationOrdered By: Mayda Matthews on 06-05-2024 Anion gap [Moles/Vol] 11.0 mmol/L Normal 6.0-15.0 [facility] Comment on above: Performed By: #### B WALTER, CBCNO ####[facility] [id number] Anion gap [Moles/Vol] Serum or plasma an ion gap determination 6.0-15.0 [facility] Sodium [Moles/volume] in Ser um or PlasmaOrdered By: Mayda Matthews on 06-05-2024 Sodium [Moles/Vol] 139 mmol/L Normal 136-145 [facility] Comment on above: Performed By: #### B WALTER, CBCNO ####[address] Sodium [Moles/Vol] Sodium [Moles/volume ] in Serum or Plasma 136-145 [facility] Urea nitrogen [Mass/volume] in Serum or PlasmaOrdered By: Mayda Matthews on 06-05-2024 Urea nitrogen [Mass/Vol] 43 mg/dL High - [facility] Comment on above: Performed By: #### B MP, CBCNO ####[facility] [id number] [place] [id number] [facility] Urea nitrogen [Mass/Vol] Urea nitrogen [Mass/volume] in Serum or Plasma High 03-10 [facility] Automated basophil %Ordered By: Tank Norman on 06-04-2024 Basophils/100 WBC (Bld) 0.1 % Normal . [facility] Comment on above: Performed By: #### C BC ####[place] [id number] [facility] Automated basophil countOrde red By: Tank Ester on 06-04-2024 Basophils (Bld) [#/Vol] 0.0 10*3/uL Normal 0.0-0.2 [facility] Comment on above: Result Comment: PERF ORMED BY:[address] [place], [place] [phone] MEDICAL DIRECTORMEAGAN HARDING M.D. Performed By: #### C BC ####[address] Automated blood monocyte cou ntOrdered By: Tank Norman on 06-04-2024 Monocytes (Bld) [#/Vol] 0.6 10*3/uL Normal 0.0-0.8 [facility] Comment on above: Performed By: #### C BC ####[address] Automated eosinophil %Ordere d By: Tank Norman on 06-04-2024 Eosinophils/100 WBC (Bld) 4.6 % Normal . [facility] Comment on above: Performed By: #### C BC ####[address] Automated eosinophil countOr dered By: Tank Norman on 06-04-2024 Eosinophils (Bld) [#/Vol] 0.3 10*3/uL Normal 0.0-0.45 [facility] Comment on above: Performed By: #### C BC ####[address] Automated monocyte %Ordered By: Tank Norman on 06-04-2024 Monocytes/100 WBC (Bld) 8.6 % Normal . [facility] Comment on above: Performed By: #### C BC ####[address] Automated neutrophil %Ordere d By: Tank Norman on 06-04-2024 Neutrophils/100 WBC (Bld) 78.9 % Normal . [facility] Comment on above: Performed By: #### C BC ####[address] [address] [facility] Basic Metabolic Panelon 05-17 Anion gap [Moles/Vol] 13.0 mmol/L Normal 6.0-15.0 [facility] Comment on above: Performed By: #### B MP ####[place] [id number] [facility] Calcium [Mass/Vol] 8.8 mg/dL Normal 8.6-10.3 [facility] Comment on above: Performed By: #### B MP ####[place] [id number] [facility] Chloride [Moles/Vol] 108 mmol/L High 98-107 [facility] Comment on above: Performed By: #### B MP ####[place] [id number] [facility] CO2 [Moles/Vol] 23.1 mmol/L Normal 21.0-31.0 [facility] Comment on above: Performed By: #### B MP ####[place] [id number] [facility] Creatinine [Mass/Vol] 3.13 mg/dL High 0.70-1.30 [facility] Comment on above: Performed By: #### B MP ####[place] [id number] [facility] Creatinine Clr Calc Pharmacy 21.98 Normal [facility] Comment on above: Result Comment: PERF ORMED BY:[place] [place], [place] [phone] MEDICAL ANYA HARDING M.D. Performed By: #### B MP ####[place] [id number] [facility] GFR/1.73 sq M.predicted MDRD (S/P/Bld) [Vol rate/Area] 19.469 mL/min/{1.73_m2} Normal [facility] Comment on above: Performed By: #### B MP ####[place] [id number] [place] Glucose [Mass/Vol] 120 mg/dL High 70-100 [facility] Comment on above: Result Comment: [place] Glucose Reference Range is dependent on time and content of last meal. Glucose of more than 200 mg/dL in a nonstressed, ambulatory subject supports the diagnosis of Diabetes Mellitus. ADA recommended reference range Performed By: #### B MP ####[address] Potassium [Moles/Vol] 5.1 mmol/L Normal 3.5-5.1 [facility] Comment on above: Performed By: #### B MP ####[address] Sodium [Moles/Vol] 139 mmol/L Normal 136-145 [facility] Comment on above: Performed By: #### B MP ####[address] Urea nitrogen [Mass/Vol] 41 mg/dL High 7-25 [facility] Comment on above: Performed By: #### B MP ####[place] [id number] [facility] Basophils Auto (Bld) [#/Vol] Ordered By: Tank Norman on 06-04-2024 Basophils (Bld) [#/Vol] Automated basophil count 0.0-0.2 [facility] Basophils/100 WBC Auto (Bld) Ordered By: Tank Norman on 06-04-2024 Basophils/100 WBC (Bld) Automated basophil % . [facility] Complete Blood Count Auto Di ffon 06-04-2024 Erythrocyte distribution width (RBC) [Ratio] 16.3 % High 12.0-14.8 [facility] Comment on above: Performed By: #### C BC ####[address] Hematocrit (Bld) [Volume fraction] 27.7 % Low 38.8-50.0 [facility] Comment on above: Performed By: #### C BC ####[address] Hemoglobin (Bld) [Mass/Vol] 9.5 g/dL Low 13.0-17.0 [facility] Comment on above: Performed By: #### C BC ####[address] MCH (RBC) [Entitic mass] 35.7 pg High 27.5-35.2 [facility] Comment on above: Performed By: #### C BC ####[address] MCV (RBC) [Entitic vol] 104.3 fL High 83.5-101 T [facility] Comment on above: Performed By: #### C BC ####[address] Mean Corpuscular HGB Conc 34.2 g/dL Normal 32.5-35.6 [facility] Comment on above: Performed By: #### C BC ####[address] NRBC% 0.1 /100{WBC} Normal 0-0.5 [facility] Comment on above: Performed By: #### C BC ####[address] Platelet mean volume (Bld) [Entitic vol] 8.0 fL Normal 6.6-10.1 [facility] Comment on above: Performed By: #### C BC ####[address] Platelets (Bld) [#/Vol] 139 10*3/uL Low 150-450 [facility] Comment on above: Performed By: #### C BC ####[address] RBC (Bld) [#/Vol] 2.66 10*6/uL Low 3.90-5.60 [facility] Comment on above: Performed By: #### C BC ####[address] Eosinophils Auto (Bld) [#/Vo l]Ordered By: Tank Norman on 06-04-2024 Eosinophils (Bld) [#/Vol] Automated eosinophil count 0.0-0.45 [facility] Eosinophils/100 WBC Auto (Bl d)Ordered By: Tank Norman on 06-04-2024 Eosinophils/100 WBC (Bld) Automated eosinophil % . [facility] [place] urethrocystogram retroon 06-04-2024 [place] urethrocystogram retro Normal [facility] Glucose Poct Glucometerson 1 Commemt1 Glu2: Cleaned Meter Normal [facility] Comment on above: Result Comment: PERF ORMED BY:[place] [address] [place], [place] [phone] MEDICAL DIRECTORMEAGAN HARDING M.D. Performed By: #### G LULS ####Point of Care testing, Glucose [Mass/Vol] 208 mg/dL Normal [facility] Comment on above: Result Comment: [place] Glucose Reference Range is dependent on time and content of last meal. Glucose of more than 200 mg/dL in a nonstressed, ambulatory subject supports the diagnosis of Diabetes Mellitus. Performed By: #### G LULS ####Point of Care testing, Glucose [Mass/Vol] 118 mg/dL Normal [facility] Comment on above: Result Comment: [place] Glucose Reference Range is dependent on time and content of last meal. Glucose of more than 200 mg/dL in a nonstressed, ambulatory subject supports the diagnosis of Diabetes Mellitus.PERFORMED BY:[place] [address] [place], [place] [phone] MEDICAL DIRECTORMEAGAN HARDING M.D. Performed By: #### G LULS ####Point of Care testing, Glucose [Mass/Vol] 179 mg/dL Normal [facility] Comment on above: Result Comment: [place] Glucose Reference Range is dependent on time and content of last meal. Glucose of more than 200 mg/dL in a nonstressed, ambulatory subject supports the diagnosis of Diabetes Mellitus.PERFORMED BY:[place] [address] [place], [place] [phone] MEDICAL DIRECTORMEAGAN HARDING M.D. Performed By: #### G LULS ####Point of Care testing, Glucose [Mass/Vol] 102 mg/dL Normal [facility] Comment on above: Result Comment: [facility] Glucose Reference Range is dependent on time and content of last meal. Glucose of more than 200 mg/dL in a nonstressed, ambulatory subject supports the diagnosis of Diabetes Mellitus.PERFORMED BY:[address] [place], [place] [phone] MEDICAL DIRECTORMEAGAN HARDING M.D. Performed By: #### G LUJOSE ####Point of Care testing, Leukocytes [#/volume] in Blo od by Automated countOrdered By: Tank Norman on 06-04-2024 WBC (Bld) [#/Vol] 6.5 10*3/uL Normal 4.1-10.5 [facility] Comment on above: Performed By: #### C BC ####[id number] [place] [address] [facility] Lymphocytes Auto (Bld) [#/Vo l]Ordered By: Tank Norman on 06-04-2024 Lymphocytes (Bld) [#/Vol] Lymphocytes [#/volume] in Blood by Automated count Low 1.00-4.8 [facility] Lymphocytes [#/volume] in Bl ood by Automated countOrdered By: Tank Norman on 06-04-2024 Lymphocytes (Bld) [#/Vol] 0.5 10*3/uL Low 1.00-4.8 [facility] Comment on above: Performed By: #### C BC ####[address] [address] [facility] Lymphocytes/100 WBC Auto (Bl d)Ordered By: Tank Norman on 06-04-2024 Lymphocytes/100 WBC (Bld) Lymphocytes/100 leukocytes in Blood by Automated count . [facility] Lymphocytes/100 leukocytes i n Blood by Automated countOrdered By: Tank Norman on 06-04-2024 Lymphocytes/100 WBC (Bld) 7.8 % Normal . [facility] Comment on above: Performed By: #### C BC ####[facility] [id number] [place] [address] [facility] Monocytes Auto (Bld) [#/Vol] Ordered By: Tank Norman on 06-04-2024 Monocytes (Bld) [#/Vol] Automated blood monocyte count 0.0-0.8 [facility] Monocytes/100 WBC Auto (Bld) Ordered By: Tank Norman on 06-04-2024 Monocytes/100 WBC (Bld) Automated monocyte % . [facility] Neutrophils Auto (Bld) [#/Vo l]Ordered By: Tank Norman on 06-04-2024 Neutrophils (Bld) [#/Vol] Neutrophils [#/volume] in Blood by Automated count 1.8-7.7 [facility] Neutrophils [#/volume] in Bl ood by Automated countOrdered By: Tank Norman on 06-04-2024 Neutrophils (Bld) [#/Vol] 5.1 10*3/uL Normal 1.8-7.7 [facility] Comment on above: Performed By: #### C BC ####[facility] [id number] [place] [address] [facility] Neutrophils/100 WBC Auto (Bl d)Ordered By: Tank Norman on 06-04-2024 Neutrophils/100 WBC (Bld) Automated neutrophil % . [facility] Nucleated erythrocytes [Pres ence] in Blood by Automated countOrdered By: Tank Norman on 06-04-2024 Nucleated RBC Auto Ql (Bld) 0.1 /100{WBC} 0-0.5 [facility] Nucleated RBC Auto Ql (Bld) Nucleated erythrocytes [Presence] in Blood by Automated count 0-0.5 [facility] WBC Auto (Bld) [#/Vol]Ordere d By: Tank Norman on 06-04-2024 WBC (Bld) [#/Vol] Leukocytes [#/volume ] in Blood by Automated count 4.1-10.5 [facility] Activated partial thrombopla stin time (aPTT) in platelet poor plasma by coagulation aOrdered By: Mayda Matthews on 06-03-2024 aPTT Coag (PPP) [Time] 30.2 s 25.1-36.5 [facility] Comment on above: A hematocrit value g reater than 55% may lead to inaccurate results in coagulation testing. Patients having hematocrit values >55% require a special collection tube for coagulation studies. Please contact the laboratory at [phone] for redraw instructions. Alanine aminotransferase [En zymatic activity/volume] in Serum or PlasmaOrdered By: Mayda Senr on 06-03-2024 ALT [Catalytic activity/Vol] 7 U/L Normal [facility] Comment on above: Performed By: #### M G, PTT, CBC, PT, CMP ####[facility] [id number] [id number] [facility] ALT [Catalytic activity/Vol] Alanine aminotransferase [Enzymatic activity/volume] in Serum or Plasma [facility] Albumin [Mass/volume] in Ser um or Plasma by Bromocresol green (BCG) dye binding methoOrdered By: Mayda Matthews on 06-03-2024 Albumin BCG dye [Mass/Vol] 3.2 g/dL Low 3.5-5.7 [facility] Albumin BCG dye [Mass/Vol] Albumin [Mass/volume] in Serum or Plasma by Bromocresol green (BCG) dye binding metho Low 3.5-5.7 [facility] Alkaline phosphatase [Enzyma tic activity/volume] in Serum or PlasmaOrdered By: Mayda Senr on 06-03-2024 ALP [Catalytic activity/Vol] 86 U/L Normal 34-104 [facility] Comment on above: Performed By: #### M G, PTT, CBC, PT, CMP ####[facility] [id number] [place] [address] [facility] ALP [Catalytic activity/Vol] Alkaline phosphatase [Enzymatic activity/volume] in Serum or Plasma 34-104 [facility] Aspartate aminotransferase [ Enzymatic activity/volume] in Serum or PlasmaOrdered By: Mayda Senr on 06-03-2024 AST [Catalytic activity/Vol] 16 U/L Normal 13-39 [facility] Comment on above: Performed By: #### M G, PTT, CBC, PT, CMP ####[address] [address] [facility] AST [Catalytic activity/Vol] Aspartate aminotransferase [Enzymatic activity/volume] in Serum or Plasma 13-39 [facility] Basic Metabolic Panelon 05-17 Anion gap [Moles/Vol] 10.9 mmol/L Normal 6.0-15.0 [facility] e [facility] Comment on above: Order Comment: Comme nt please call results to Dr. Rahman RE TIME FROM 1700 TO 2230 PER RN VANIA Performed By: #### B MP ####[place] [id number] [facility] Calcium [Mass/Vol] 9.1 mg/dL Normal 8.6-10.3 [facility] Comment on above: Order Comment: Comme nt please call results to Dr. Rahman RE TIME FROM 1700 TO 2230 PER RN VANIA Performed By: #### B MP ####[place] [id number] [facility] Chloride [Moles/Vol] 108 mmol/L High 98-107 [facility] Comment on above: Order Comment: Comme nt please call results to Dr. Rahman RE TIME FROM 1700 TO 2230 PER RN VANIA Performed By: #### B MP ####[place] [id number] [facility] CO2 [Moles/Vol] 22.9 mmol/L Normal 21.0-31.0 [facility] Comment on above: Order Comment: Comme nt please call results to Dr. Rahman RE TIME FROM 1700 TO 2230 PER RN VANIA Performed By: #### B MP ####[place] [id number] [facility] Creatinine [Mass/Vol] 3.07 mg/dL High 0.70-1.30 [facility] Comment on above: Order Comment: Comme nt please call results to Dr. Rahman RE TIME FROM 1700 TO 2230 PER RN VANIA Performed By: #### B MP ####[address] [place] [address] [facility] Creatinine Clr Calc Pharmacy 22.53 Normal [facility] Comment on above: Order Comment: Comme nt please call results to Dr. Rahman RE TIME FROM 1700 TO 2230 PER RN VANIA Result Comment: PERF ORMED BY:[place] [address] [address] [place], [place] [phone] MEDICAL ANYA HARDING M.D. Performed By: #### B MP ####[address] [address] [facility] GFR/1.73 sq M.predicted MDRD (S/P/Bld) [Vol rate/Area] 19.926 mL/min/{1.73_m2} Normal [facility] Comment on above: Order Comment: Comme nt please call results to Dr. Rahman RE TIME FROM 1700 TO 2230 PER RN VANIA Performed By: #### B MP ####[address] [address] [facility] Glucose [Mass/Vol] 150 mg/dL High 70-100 [facility] Comment on above: Order Comment: Comme nt please call results to Dr. Rahman RE TIME FROM 1700 TO 2230 PER RN VANIA Result Comment: [facility] Glucose Reference Range is dependent on time and content of last meal. Glucose of more than 200 mg/dL in a nonstressed, ambulatory subject supports the diagnosis of Diabetes Mellitus. ADA recommended reference range Performed By: #### B MP ####[address] [address] [facility] Potassium [Moles/Vol] 4.8 mmol/L Normal 3.5-5.1 [facility] Comment on above: Order Comment: Comme nt please call results to Dr. Rahman RE TIME FROM 1700 TO 2230 PER RN VANIA Performed By: #### B MP ####[address] [address] [facility] Sodium [Moles/Vol] 137 mmol/L Normal 136-145 [facility] Comment on above: Order Comment: Comme nt please call results to Dr. Rahman RE TIME FROM 1700 TO 2230 PER RN VANIA Performed By: #### B MP ####[place] [id number] [facility] Urea nitrogen [Mass/Vol] 43 mg/dL High 7-25 [facility] Comment on above: Order Comment: Comme nt please call results to Dr. Rahman RE TIME FROM 1700 TO 2230 PER RN VANIA Performed By: #### B MP ####[place] [id number] [facility] Bilirubin.total [Mass/volume ] in Serum or PlasmaOrdered By: Mayda Matthews on 06-03-2024 Bilirubin [Mass/Vol] 0.3 mg/dL Normal 0.3-1.0 [facility] Comment on above: Performed By: #### M G, PTT, CBC, PT, CMP ####[place] [id number] [facility] Bilirubin [Mass/Vol] Bilirubin.total [Mass/volume] in Serum or Plasma 0.3-1.0 [facility] Complete Blood Count Auto Di ffon 06-03-2024 Basophils (Bld) [#/Vol] 0.0 10*3/uL Normal 0.0-0.2 [facility] Comment on above: Result Comment: PERF ORMED BY:[address] [place], [place] [phone] MEDICAL DIRECTORMEAGAN HARDING M.D. Performed By: #### M G, PTT, CBC, PT, CMP ####[place] [id number] [facility] Basophils/100 WBC (Bld) 0.2 % Normal . T he [facility] Comment on above: Performed By: #### M G, PTT, CBC, PT, CMP ####[place] [id number] [facility] Eosinophils (Bld) [#/Vol] 0.4 10*3/uL Normal 0.0-0.45 [facility] Comment on above: Performed By: #### M G, PTT, CBC, PT, CMP ####[address] Eosinophils/100 WBC (Bld) 7.7 % Normal . [facility] Comment on above: Performed By: #### M G, PTT, CBC, PT, CMP ####[address] Erythrocyte distribution width (RBC) [Ratio] 16.4 % High 12.0-14.8 [facility] Comment on above: Performed By: #### M G, PTT, CBC, PT, CMP ####[address] Hematocrit (Bld) [Volume fraction] 27.4 % Low 38.8-50.0 [facility] Comment on above: Performed By: #### M G, PTT, CBC, PT, CMP ####[address] Hemoglobin (Bld) [Mass/Vol] 9.2 g/dL Low 13.0-17.0 [facility] Comment on above: Performed By: #### M G, PTT, CBC, PT, CMP ####[address] Lymphocytes (Bld) [#/Vol] 0.9 10*3/uL Low 1.00-4.8 [facility] Comment on above: Performed By: #### M G, PTT, CBC, PT, CMP ####[address] Lymphocytes/100 WBC (Bld) 15.6 % Normal . [facility] Comment on above: Performed By: #### M G, PTT, CBC, PT, CMP ####[address] MCH (RBC) [Entitic mass] 35.5 pg High 27.5-35.2 [facility] Comment on above: Performed By: #### M G, PTT, CBC, PT, CMP ####[address] MCV (RBC) [Entitic vol] 105.4 fL High 83.5-101 [facility] Comment on above: Performed By: #### M G, PTT, CBC, PT, CMP ####[address] Mean Corpuscular HGB Conc 33.7 g/dL Normal 32.5-35.6 [facility] Comment on above: Performed By: #### M G, PTT, CBC, PT, CMP ####[address] Monocytes (Bld) [#/Vol] 0.4 10*3/uL Normal 0.0-0.8 [facility] Comment on above: Performed By: #### M G, PTT, CBC, PT, CMP ####[address] Monocytes/100 WBC (Bld) 7.5 % Normal . [facility] Comment on above: Performed By: #### M G, PTT, CBC, PT, CMP ####[address] Neutrophils (Bld) [#/Vol] 3.8 10*3/uL Normal 1.8-7.7 [facility] Comment on above: Performed By: #### M G, PTT, CBC, PT, CMP ####[address] Neutrophils/100 WBC (Bld) 69.0 % Normal . [facility] Comment on above: Performed By: #### M G, PTT, CBC, PT, CMP ####[address] NRBC% 0.1 /100{WBC} Normal 0-0.5 [facility] Comment on above: Performed By: #### M G, PTT, CBC, PT, CMP ####[address] Platelet mean volume (Bld) [Entitic vol] 8.0 fL Normal 6.6-10.1 [facility] Comment on above: Performed By: #### M G, PTT, CBC, PT, CMP ####[address] Platelets (Bld) [#/Vol] 138 10*3/uL Low 150-450 [facility] Comment on above: Performed By: #### M G, PTT, CBC, PT, CMP ####[address] RBC (Bld) [#/Vol] 2.60 10*6/uL Low 3.90-5.60 [facility] Comment on above: Performed By: #### M G, PTT, CBC, PT, CMP ####[address] WBC (Bld) [#/Vol] 5.5 10*3/uL Normal 4.1-10.5 [facility] Comment on above: Performed By: #### M G, PTT, CBC, PT, CMP ####[address] Comprehensive Metabolic Pane mana 06-03-2024 Albumin [Mass/Vol] 3.2 g/dL Low 3.5-5.7 [facility] Comment on above: Performed By: #### M G, PTT, CBC, PT, CMP ####[address] Anion gap [Moles/Vol] 11.8 mmol/L Normal 6.0-15.0 Th e [facility] Comment on above: Performed By: #### M G, PTT, CBC, PT, CMP ####[address] Calcium [Mass/Vol] 8.5 mg/dL Low 8.6-10.3 [facility] Comment on above: Performed By: #### M G, PTT, CBC, PT, CMP ####[address] Chloride [Moles/Vol] 110 mmol/L High 98-107 [facility] Comment on above: Performed By: #### M G, PTT, CBC, PT, CMP ####[address] CO2 [Moles/Vol] 21.0 mmol/L Normal 21.0-31.0 [facility] Comment on above: Performed By: #### M G, PTT, CBC, PT, CMP ####[address] Creatinine [Mass/Vol] 3.17 mg/dL High 0.70-1.30 [facility] Comment on above: Performed By: #### M G, PTT, CBC, PT, CMP ####[address] Creatinine Clr Calc Pharmacy 21.82 Normal [facility] Comment on above: Performed By: #### M G, PTT, CBC, PT, CMP ####[address] GFR/1.73 sq M.predicted MDRD (S/P/Bld) [Vol rate/Area] 19.175 mL/min/{1.73_m2} Normal [facility] Comment on above: Performed By: #### M G, PTT, CBC, PT, CMP ####[address] Glucose [Mass/Vol] 66 mg/dL Low 70-100 [facility] Comment on above: Result Comment: [place] Glucose Reference Range is dependent on time and content of last meal. Glucose of more than 200 mg/dL in a nonstressed, ambulatory subject supports the diagnosis of Diabetes Mellitus. ADA recommended reference range Performed By: #### M G, PTT, CBC, PT, CMP ####[address] Potassium [Moles/Vol] 5.8 mmol/L High 3.5-5.1 [facility] Comment on above: Performed By: #### M G, PTT, CBC, PT, CMP ####[address] Sodium [Moles/Vol] 137 mmol/L Normal 136-145 [facility] Comment on above: Performed By: #### M G, PTT, CBC, PT, CMP ####[facility] [id number] [place] [address] [facility] Urea nitrogen [Mass/Vol] 42 mg/dL High 7-25 [facility] Comment on above: Performed By: #### M G, PTT, CBC, PT, CMP ####[facility] [id number] [place] [address] [facility] Globulin Calc (S) [Mass/Vol] Ordered By: Mayda Matthews on 06-03-2024 Globulin (S) [Mass/Vol] Serum globulin m easurement by calculation (mass/volume) [facility] Glucose Poct Glucometerson 1 Glucose [Mass/Vol] 170 mg/dL Normal [facility] Comment on above: Result Comment: [facility] Glucose Reference Range is dependent on time and content of last meal. Glucose of more than 200 mg/dL in a nonstressed, ambulatory subject supports the diagnosis of Diabetes Mellitus.PERFORMED BY:[address] [place], [place] [phone] MEDICAL DIRECTORMEAGAN HARDING M.D. Performed By: #### G LULS ####Point of Care testing, Glucose [Mass/Vol] 230 mg/dL Normal [facility] Comment on above: Result Comment: [facility] Glucose Reference Range is dependent on time and content of last meal. Glucose of more than 200 mg/dL in a nonstressed, ambulatory subject supports the diagnosis of Diabetes Mellitus.PERFORMED BY:[address] [place], [place] [phone] MEDICAL ANYA HARDING M.D. Performed By: #### G LULS ####Point of Care testing, Commemt1 Glu2: Cleaned Meter Normal [facility] Comment on above: Result Comment: PERF ORMED BY:[address] [place], [place] [phone] MEDICAL DIRECTORMEAGAN HARDING M.D. Performed By: #### G LULS ####Point of Care testing, Glucose [Mass/Vol] 75 mg/dL Normal [facility] Comment on above: Result Comment: [place] om Glucose Reference Range is dependent on time and content of last meal. Glucose of more than 200 mg/dL in a nonstressed, ambulatory subject supports the diagnosis of Diabetes Mellitus. Performed By: #### G LULS ####Point of Care testing, Glucose [Mass/Vol] 71 mg/dL Normal [facility] Comment on above: Result Comment: [place] om Glucose Reference Range is dependent on time and content of last meal. Glucose of more than 200 mg/dL in a nonstressed, ambulatory subject supports the diagnosis of Diabetes Mellitus.PERFORMED BY:[address] [place], [place] [phone] MEDICAL ANYA HARDING M.D. Performed By: #### G LULS ####Point of Care testing, Glucose [Mass/Vol] 81 mg/dL Normal [facility] Comment on above: Result Comment: [place] om Glucose Reference Range is dependent on time and content of last meal. Glucose of more than 200 mg/dL in a nonstressed, ambulatory subject supports the diagnosis of Diabetes Mellitus.PERFORMED BY:[address] [place], [place] [phone] MEDICAL ANYA HARDING M.D. Performed By: #### G LULS ####Point of Care testing, Glucose [Mass/Vol] 100 mg/dL Normal [facility] Comment on above: Result Comment: [place] om Glucose Reference Range is dependent on time and content of last meal. Glucose of more than 200 mg/dL in a nonstressed, ambulatory subject supports the diagnosis of Diabetes Mellitus.PERFORMED BY:[address] [place], [place] [phone] MEDICAL ANYA HARDING M.D. Performed By: #### G LULS ####Point of Care testing, Glucose [Mass/Vol] 77 mg/dL Normal [facility] Comment on above: Result Comment: [place] om Glucose Reference Range is dependent on time and content of last meal. Glucose of more than 200 mg/dL in a nonstressed, ambulatory subject supports the diagnosis of Diabetes Mellitus.PERFORMED BY:[address] [place], [place] [phone] MEDICAL DIRECTORMEAGAN HARDING M.D. Performed By: #### G LULS ####Point of Care testing, INR in Platelet poor plasma by Coagulation assayOrdered By: Mayda Matthews on 06-03-2024 INR Coag (PPP) [Relative time] 1.1 {INR} Normal [facility] Comment on above: INR Therapeutic Rang e [...] #### M G, PTT, CBC, PT, CMP ####[facility] [place] [address] [facility] INR Coag (PPP) [Relative time] INR in Platelet poor plasma by Coagulation assay [facility] Magnesium [Mass/volume] in S valeria or PlasmaOrdered By: Mayda Matthews on 06-03-2024 Magnesium [Mass/Vol] 2.0 mg/dL Normal 1.9-2.7 [facility] Comment on above: Result Comment: PERF ORMED BY:[address] [place] [place], [place] [phone] MEDICAL DIRECTORMEAGAN HARDING M.D. Performed By: #### M G, PTT, CBC, PT, CMP ####[address] [place] [address] [facility] Magnesium [Mass/Vol] Magnesium [Mass/vol ume] in Serum or Plasma 1.9-2.7 [facility] Partial Thromboplastin Timeo n 06-03-2024 aPTT Coag (Bld) [Time] 30.2 s Normal 25.1-36.5 Th e [facility] Comment on above: Result Comment: A he matocrit value greater than 55% may lead to inaccurate results in coagulation testing. Patients having hematocrit values >55% require a special collection tube for coagulation studies. Please contact the laboratory at [phone] for redraw instructions.PERFORMED BY:[place] [address] [address] [place], [place] [phone] MEDICAL DIRECTORMEAGAN HARDING M.D. Performed By: #### M G, PTT, CBC, PT, CMP ####[address] [address] [facility] Potassiumon 06-03-2024 Potassium [Moles/Vol] 5.9 mmol/L High 3.5-5.1 [facility] Comment on above: Result Comment: PERF ORMED BY:[place] [address] [address] [place], [place] [phone] MEDICAL DIRECTORMEAGAN HARDING M.D. Performed By: #### K ####[address] [address] [facility] Protein [Mass/volume] in Ser um or PlasmaOrdered By: Mayda Matthews on 06-03-2024 Protein [Mass/Vol] 5.8 g/dL Low 6.4-8.9 [facility] Comment on above: Performed By: #### M G, PTT, CBC, PT, CMP ####[address] [address] [facility] Protein [Mass/Vol] Protein [Mass/volume ] in Serum or Plasma Low 6.4-8.9 [facility] Prothrombin time (PT)Ordered By: Mayda Senr on 06-03-2024 PT Coag (PPP) [Time] 13.0 s High 9.0-12.9 [facility] Comment on above: A hematocrit value g reater than 55% may lead to inaccurate results in coagulation testing. Patients having hematocrit values >55% require a special collection tube for coagulation studies. Please contact the laboratory at [phone] for redraw instructions. Result Comment: A he matocrit value greater than 55% may lead to inaccurate results in coagulation testing. Patients having hematocrit values >55% require a special collection tube for coagulation studies. Please contact the laboratory at [phone] for redraw instructions. Performed By: #### M G, PTT, CBC, PT, CMP ####[facility] [id number] PT Coag (PPP) [Time] Prothrombin time (PT) High 9.0- 12.9 [facility] Serum globulin measurement b y calculation (mass/volume)Ordered By: Mayda Matthews on 06-03-2024 Globulin (S) [Mass/Vol] 2.6 g/dL Normal F [facility] Comment on above: Performed By: #### M G, PTT, CBC, PT, CMP ####[facility] [id number] Serum or plasma albumin/glob ulin mass ratioOrdered By: Mayda Matthews on 06-03-2024 Albumin/Globulin [Mass ratio] 1.2 {ratio} Normal [facility] Comment on above: Performed By: #### M G, PTT, CBC, PT, CMP ####[facility] [id number] [place] [id number] [facility] Albumin/Globulin [Mass ratio] Serum or plasma albumin/globulin mass ratio [facility] aPTT in Platelet poor plasma by Coagulation assayOrdered By: Mayda Matthews on 06-03-2024 aPTT Coag (PPP) [Time] Activated partial thromboplastin time (aPTT) in platelet poor plasma by coagulation a 25.1-36.5 [facility] Alanine aminotransferase [En zymatic activity/volume] in Serum or PlasmaOrdered By: Brook Huddleston on 06-02-2024 ALT [Catalytic activity/Vol] 12 U/L Normal 7-52 [facility] Comment on above: Performed By: #### C AYDEE, CMP ####[place] [id number] [facility] Albumin [Mass/volume] in Ser um or Plasma by Bromocresol green (BCG) dye binding methoOrdered By: Brook Huddleston on 06-02-2024 Albumin BCG dye [Mass/Vol] 3.9 g/dL 3.5-5.7 [facility] Alkaline phosphatase [Enzyma tic activity/volume] in Serum or PlasmaOrdered By: Brook Huddleston on 06-02-2024 ALP [Catalytic activity/Vol] 97 U/L Normal 34-104 [facility] Comment on above: Performed By: #### C AYDEE, CMP ####[place] [id number] [facility] Appearance of UrineOrdered B y: Obmaine Byron on 06-02-2024 Appearance (U) Urine appearance Abnormal Clear [facility] Aspartate aminotransferase [ Enzymatic activity/volume] in Serum or PlasmaOrdered By: Brook Huddleston on 06-02-2024 AST [Catalytic activity/Vol] 18 U/L Normal 13-39 [facility] Comment on above: Performed By: #### C AYDEE, CMP ####[address] [address] [facility] Automated basophil %Ordered By: Brook Huddleston on 06-02-2024 Basophils/100 WBC (Bld) 0.3 % Normal . F [facility] Comment on above: Performed By: #### C AYDEE, CMP ####[place] [id number] [facility] Automated basophil countOrde red By: Brook Huddleston on 06-02-2024 Basophils (Bld) [#/Vol] 0.0 10*3/uL Normal 0.0-0.2 [facility] Comment on above: Result Comment: PERF ORMED BY:[address] [place], [place] [phone] MEDICAL DIRECTORMEAGAN HARDING M.D. Performed By: #### C BC, CMP ####[address] Automated blood monocyte cou ntOrdered By: Brook Flaquito on 06-02-2024 Monocytes (Bld) [#/Vol] 0.5 10*3/uL Normal 0.0-0.8 [facility] Comment on above: Performed By: #### C BC, CMP ####[address] Automated eosinophil %Ordere d By: Brook Flaquito on 06-02-2024 Eosinophils/100 WBC (Bld) 5.4 % Normal . [facility] Comment on above: Performed By: #### C BC, CMP ####[address] Automated eosinophil countOr dered By: Brook Huddleston on 06-02-2024 Eosinophils (Bld) [#/Vol] 0.4 10*3/uL Normal 0.0-0.45 [facility] Comment on above: Performed By: #### C BC, CMP ####[address] Automated monocyte %Ordered By: Brook Huddleston on 06-02-2024 Monocytes/100 WBC (Bld) 6.5 % Normal . [facility] Comment on above: Performed By: #### C BC, CMP ####[address] Automated neutrophil %Ordere d By: Brook Huddleston on 06-02-2024 Neutrophils/100 WBC (Bld) 78.0 % Normal . [facility] Comment on above: Performed By: #### C BC, CMP ####[address] Bacteria [Presence] in Urine by AutomatedOrdered By: Mayda Matthews on 06-02-2024 Bacteria Auto Ql (U) 1+ [HPF] High None Seen [facility] Bacteria Auto Ql (U) Bacteria [Presence] in Urine by Automated High None Seen [facility] Basic Metabolic Panelon 05-17 Creatinine Clr Calc Pharmacy 21.23 Normal [facility] Comment on above: Result Comment: PERF ORMED BY:[address] [place], [place] [phone] MEDICAL DIRECTORMEAGAN HARDING M.D. Performed By: #### B MP ####[place] [id number] [facility] GFR/1.73 sq M.predicted MDRD (S/P/Bld) [Vol rate/Area] 18.542 mL/min/{1.73_m2} Normal [facility] Comment on above: Performed By: #### B MP ####[address] Creatinine Clr Calc Pharmacy 19.50 Normal [facility] Comment on above: Result Comment: PERF ORMED BY:[address] [place], [place] [phone] MEDICAL DIRECTORMEAGAN HARDING M.D. Performed By: #### B MP ####[place] [id number] [facility] GFR/1.73 sq M.predicted MDRD (S/P/Bld) [Vol rate/Area] 17.203 mL/min/{1.73_m2} Normal [facility] Comment on above: Performed By: #### B MP ####[address] Performed By: #### C BC, CMP ####[address] Bilirubin Test strip Ql (U)O rdered By: Mayda Matthews on 06-02-2024 Bilirubin Ql (U) Negative Negative [facility] Bilirubin Ql (U) Bilirubin.total [Pre sence] in Urine by Test strip Negative [facility] Bilirubin.total [Mass/volume ] in Serum or PlasmaOrdered By: Brook Huddleston on 06-02-2024 Bilirubin [Mass/Vol] 0.4 mg/dL Normal 0.3-1.0 [facility] Comment on above: Performed By: #### C BC, CMP ####[facility] [id number] [place] [id number] [facility] CBC W Auto Differential pane l (Bld)on 06-02-2024 Basophils (Bld) [#/Vol] 0 10*3/uL 0.0 - 0.2 10*3/uL [facility] Basophils/100 WBC Manual cnt (Syn fld) 0.3 % . [facility] Eosinophils (Bld) [#/Vol] 0.4 10*3/uL 0.0 - 0.45 10*3/uL [facility] Eosinophils/100 WBC Manual cnt (Syn fld) 5.4 % . [facility] Erythrocyte distribution width (RBC) [Ratio] 16.7 % High 12.0 - 14.8 % [facility] Hematocrit (Bld) [Volume fraction] 30.2 % Low 38.8 - 50.0 % [facility] Hemoglobin (Bld) [Mass/Vol] 10.3 g/dL Low 13.0 - 17.0 g/dL [facility] Lymphocytes (Bld) [#/Vol] 0.7 10*3/uL Low 1.00 - 4.8 10*3/uL [facility] Lymphocytes/100 WBC Manual cnt (Syn fld) 9.8 % . [facility] MCH (RBC) [Entitic mass] 36.2 pg High 27.5 - 35.2 pg [facility] MCHC (RBC) [Mass/Vol] 34.2 g/dL 32.5 - 35.6 g/dL [facility] MCV (RBC) [Entitic vol] 106 fL High 83.5 - 101 fL [facility] Monocytes (Bld) [#/Vol] 0.5 10*3/uL 0.0 - 0.8 10*3/uL [facility] Monocytes+Macrophages/1 00 WBC Manual cnt (Syn fld) 6.5 % . [facility] Neutrophils (Bld) [#/Vol] 5.7 10*3/uL 1.8 - 7.7 10*3/uL [facility] Neutrophils/100 WBC Manual cnt (Syn fld) 78 % . [facility] NRBC 0 /100{WBC} 0 - 0.5 /100{WBC} [facility] Platelet mean volume (Bld) [Entitic vol] 8.2 fL 6.6 - 10.1 fL [facility] Platelets (Bld) [#/Vol] 168 10*3/uL 150 - 450 10*3/uL [facility] RBC LM.HPF (Urine sed) [#/Area] 2.85 /[HPF] Low 3.90 - 5.60 [facility] WBC (Bld) [#/Vol] 7.3 10*3/uL 4.1 - 10.5 10*3/uL [facility] WBC LM.HPF (Urine sed) [#/Area] 7.3 10*3/uL 4.1 - 10.5 10*3/uL [facility] CT abdomen pelvis wo conon 1 CT abdomen pelvis wo con Normal [facility] Calcium [Mass/volume] in Ser um or PlasmaOrdered By: Mayda Matthews on 06-02-2024 Calcium [Mass/Vol] 8.8 mg/dL Normal 8.6-10.3 [facility] Comment on above: Performed By: #### B MP ####[place] [id number] [place] [id number] [facility] Calcium [Mass/volume] in Ser um or PlasmaOrdered By: Dong Smith on 06-02-2024 Calcium [Mass/Vol] 9.3 mg/dL Normal 8.6-10.3 [facility] Comment on above: Performed By: #### B MP ####[place] [address] [place] [address] [facility] Calcium [Mass/volume] in Ser um or PlasmaOrdered By: Brook Huddleston on 06-02-2024 Calcium [Mass/Vol] 9.5 mg/dL Normal 8.6-10.3 [facility] Comment on above: Performed By: #### C BC, CMP ####[place] [id number] [facility] Capillary blood glucose reese urement by glucometer (mass/volume)Ordered By: Mayda Matthews on 06-02-2024 Glucose [Mass/Vol] 134 mg/dL Normal [facility] Comment on above: Random Glucose Refer ence Range is dependent on time and content of last meal. Glucose of more than 200 mg/dL in a nonstressed, ambulatory subject supports the diagnosis of Diabetes Mellitus. Result Comment: [facility] Glucose Reference Range is dependent on time and content of last meal. Glucose of more than 200 mg/dL in a nonstressed, ambulatory subject supports the diagnosis of Diabetes Mellitus.PERFORMED BY:[address] [place], [place] [phone] MEDICAL DIRECTORMEAGAN HARDING M.D. Performed By: #### G ANH ####Point of Care testing, Carbon dioxide, total [Moles /volume] in Serum or PlasmaOrdered By: Mayda Matthews on 06-02-2024 CO2 [Moles/Vol] 22.0 mmol/L Normal 21.0-31.0 [facility] Comment on above: Performed By: #### B MP ####[place] [id number] [facility] Carbon dioxide, total [Moles /volume] in Serum or PlasmaOrdered By: Dong Smith on 06-02-2024 CO2 [Moles/Vol] 20.3 mmol/L Low 21.0-31.0 [facility] Comment on above: Performed By: #### B MP ####[place] [id number] [facility] Carbon dioxide, total [Moles /volume] in Serum or PlasmaOrdered By: Brook Huddleston on 06-02-2024 CO2 [Moles/Vol] 22.0 mmol/L Normal 21.0-31.0 [facility] Comment on above: Performed By: #### C BC, CMP ####[place] [phone] [place] Casts [Presence] in Urine by AutomatedOrdered By: Mayda Matthews on 06-02-2024 Casts Auto Ql (U) 5-9 [LPF] High None Seen [facility] Casts Auto Ql (U) Casts [Presence] in Urine by Automated High None Seen [facility] Chloride [Moles/volume] in S valeria or PlasmaOrdered By: Mayda Matthews on 06-02-2024 Chloride [Moles/Vol] 108 mmol/L High 98-107 [facility] Comment on above: Performed By: #### B MP ####[address] Chloride [Moles/volume] in S valeria or PlasmaOrdered By: Dong Smith on 06-02-2024 Chloride [Moles/Vol] 107 mmol/L Normal 98-107 [facility] Comment on above: Performed By: #### B MP ####[address] Chloride [Moles/volume] in S valeria or PlasmaOrdered By: Brook Huddleston on 06-02-2024 Chloride [Moles/Vol] 107 mmol/L Normal 98-107 [facility] Comment on above: Performed By: #### C BC, CMP ####[address] Color Auto (U)Ordered By: Ivan Matthews on 06-02-2024 Color (U) Color of Urine by Auto Yellow [facility] Color of Urine by AutoOrdere d By: Mayda Headleyomanavarro on 06-02-2024 Color (U) Light-yellow Normal Yellow [facility] Comment on above: Order Comment: Name Collection Type:: Suprapubic Collection Performed By: #### C UU, ADDONUAPLUS ####[address] Complete Blood Count Auto Di ffon 06-02-2024 Mean Corpuscular HGB Conc 34.2 g/dL Normal 32.5-35.6 [facility] Comment on above: Performed By: #### C BC, CMP ####[address] NRBC% 0.0 /100{WBC} Normal 0-0.5 [facility] Comment on above: Performed By: #### C BC, CMP ####[address] Comprehensive Metabolic Pane mana 06-02-2024 Albumin [Mass/Vol] 3.9 g/dL Normal 3.5-5.7 [facility] Comment on above: Performed By: #### C BC, CMP ####[place] [id number] [place] [id number] [facility] CREATININE CLR CALC PHARMACY 19.39 Normal [facility] Comment on above: Result Comment: PERF ORMED BY:[address] [place], [place] [phone] MEDICAL DIRECTORMEAGAN HARDING M.D. Performed By: #### C BC, CMP ####[address] [address] [facility] Comprehensive metabolic pane mana 06-02-2024 CO2 [Moles/Vol] 22 mmol/L 21.0 - 31.0 mmol/L [facility] Creatinine (U) [Mass/Vol] 3.47 mg/dL High 0.70 - 1.30 mg/dL [facility] Globulin (S) [Mass/Vol] 3 g/dL [facility] Creatinine [Mass/volume] in Serum or PlasmaOrdered By: Mayda Matthews on 06-02-2024 Creatinine [Mass/Vol] 3.26 mg/dL High 0.70-1.30 [facility] Comment on above: Performed By: #### B MP ####[place] [id number] [facility] Creatinine [Mass/volume] in Serum or PlasmaOrdered By: Dong Smith on 06-02-2024 Creatinine [Mass/Vol] 3.47 mg/dL High 0.70-1.30 [facility] Comment on above: Performed By: #### B MP ####[place] [id number] [facility] Creatinine [Mass/volume] in Serum or PlasmaOrdered By: Brook Huddleston on 06-02-2024 Creatinine [Mass/Vol] 3.47 mg/dL High 0.70-1.30 [facility] Comment on above: Performed By: #### C BC, CMP ####[address] [place] [address] [facility] Crystals [Presence] in Urine by AutomatedOrdered By: Mayda Matthews on 06-02-2024 Crystals Auto Ql (U) 1+ [HPF] [facility] Crystals Auto Ql (U) Crystals [Presence] in Urine by Automated [facility] Dipstick and Microscopicon 1 Bacteria,Urine 1+ High None Seen [facility] Comment on above: Order Comment: Name Collection Type:: Suprapubic Collection Performed By: #### C UU, ADDONUAPLUS ####[address] [address] [facility] Bilirubin,Urine Negative Normal Negative [facility] Comment on above: Order Comment: Name Collection Type:: Suprapubic Collection Performed By: #### C UU, ADDONUAPLUS ####[address] [address] [facility] Budding Yeast,Urine 2+ High None Seen [facility] Comment on above: Order Comment: Name Collection Type:: Suprapubic Collection Result Comment: PERF ORMED BY:[address] [place], [place] [phone] MEDICAL DIRECTORMEAGAN HARDING M.D. Performed By: #### C UU, ADDONUAPLUS ####[address] [address] [facility] Glucose Ql (U) 100 mg/dL High Normal [facility] Comment on above: Order Comment: Name Collection Type:: Suprapubic Collection Performed By: #### C UU, ADDONUAPLUS ####[address] [address] [facility] Hyaline Casts,Urine None Normal 0-8 [facility] Comment on above: Order Comment: Name Collection Type:: Suprapubic Collection Performed By: #### C UU, ADDONUAPLUS ####[address] [address] [facility] Mucus,Urine Rare Normal [facility] Comment on above: Order Comment: Name Collection Type:: Suprapubic Collection Performed By: #### C UU, ADDONUAPLUS ####[address] [address] [facility] Nitrite,Urine Negative Normal Negative [facility] Comment on above: Order Comment: Name Collection Type:: Suprapubic Collection Performed By: #### C UU, ADDONUAPLUS ####[address] [address] [facility] Occult Blood,Urine 2+ High Negative [facility] Comment on above: Order Comment: Name Collection Type:: Suprapubic Collection Result Comment: PERF ORMED BY:[address] [place], [place] [phone] MEDICAL DIRECTORMEAGAN HARDING M.D. Performed By: #### C UU, ADDONUAPLUS ####[address] [address] [facility] Othe Crystals,Urine 1+ Normal [facility] Comment on above: Order Comment: Name Collection Type:: Suprapubic Collection Performed By: #### C UU, ADDONUAPLUS ####[address] [address] [facility] Other Casts,Urine 5-9 High None Seen [facility] Comment on above: Order Comment: Name Collection Type:: Suprapubic Collection Performed By: #### C UU, ADDONUAPLUS ####[address] [address] [facility] RBC,Urine 50-100 High 0-4 [facility] Comment on above: Order Comment: Name Collection Type:: Suprapubic Collection Performed By: #### C UU, ADDONUAPLUS ####[address] [address] [facility] Specificy [place],Urine 1.013 Normal 1.00 1-1.03 0 [facility] Comment on above: Order Comment: Name Collection Type:: Suprapubic Collection Performed By: #### C UU, ADDONUAPLUS ####[place] [id number] [place] Urobilinogen,Urine Normal Normal Normal [facility] Comment on above: Order Comment: Name Collection Type:: Suprapubic Collection Performed By: #### C UU, ADDONUAPLUS ####[place] [id number] WBC CLUMP, Urine Many High None Seen [facility] Comment on above: Order Comment: Name Collection Type:: Suprapubic Collection Performed By: #### C UU, ADDONUAPLUS ####[address] WBC,Urine Innumerable High 0-4 [facility] Comment on above: Order Comment: Name Collection Type:: Suprapubic Collection Performed By: #### C UU, ADDONUAPLUS ####[address] ECG 12 lead ECGon 06-02-2024 ECG 12 lead ECG Normal [facility] Epithelial cells.squamous [# /area] in Urine sediment by Automated countOrdered By: Mayda Headleyomar on 06-02-2024 Epithelial cells.squamous Auto (Urine sed) [#/Area] N/A [facility] Epithelial cells.squamous Auto (Urine sed) [#/Area] Epithelial cells.squamous [#/area] in Urine sediment by Automated count [facility] Erythrocyte distribution wid th [Ratio] by Automated countOrdered By: Brook Huddleston on 06-02-2024 Erythrocyte distribution width (RBC) [Ratio] 16.7 % High 12.0-14.8 [facility] Comment on above: Performed By: #### C BC, CMP ####[address] Erythrocytes [#/area] in Uri ne sediment by Automated countOrdered By: ObfrankidaiCardiac Technologiesomar on 06-02-2024 RBC Auto (Urine sed) [#/Area] 50-100 [HPF] High 0-4 [facility] RBC Auto (Urine sed) [#/Area] Erythrocytes [#/area] in Urine sediment by Automated count High 0-4 [facility] Erythrocytes [#/volume] in B lood by Automated countOrdered By: Brook Huddleston on 06-02-2024 RBC (Bld) [#/Vol] 2.85 10*6/uL Low 3.90-5.60 [facility] Comment on above: Performed By: #### C BC, CMP ####[facility] [place] [address] [place] Glucose [Mass/volume] in Ser um or PlasmaOrdered By: Mayda Matthews on 06-02-2024 Glucose [Mass/Vol] 116 mg/dL High 70-100 [facility] Comment on above: ADA recommended refe rence rangeRandom Glucose Reference Range is dependent on time and content of last meal. Glucose of more than 200 mg/dL in a nonstressed, ambulatory subject supports the diagnosis of Diabetes Mellitus. Result Comment: [place] Glucose Reference Range is dependent on time and content of last meal. Glucose of more than 200 mg/dL in a nonstressed, ambulatory subject supports the diagnosis of Diabetes Mellitus. ADA recommended reference range Performed By: #### B MP ####[place] [address] [place] [address] [place] Glucose [Mass/volume] in Ser um or PlasmaOrdered By: Dong Smith on 06-02-2024 Glucose [Mass/Vol] 114 mg/dL High 70-100 [facility] Comment on above: ADA recommended refe rence rangeRandom Glucose Reference Range is dependent on time and content of last meal. Glucose of more than 200 mg/dL in a nonstressed, ambulatory subject supports the diagnosis of Diabetes Mellitus. Result Comment: [place] Glucose Reference Range is dependent on time and content of last meal. Glucose of more than 200 mg/dL in a nonstressed, ambulatory subject supports the diagnosis of Diabetes Mellitus. ADA recommended reference range Performed By: #### B MP ####[address] [address] [place] Glucose [Mass/volume] in Ser um or PlasmaOrdered By: Brook Huddleston on 06-02-2024 Glucose [Mass/Vol] 203 mg/dL High 70-100 [facility] Comment on above: ADA recommended refe [...] Mellitus. ADA recommended reference range Result Comment: [place] Glucose Reference Range is dependent on time and content of last meal. Glucose of more than 200 mg/dL in a nonstressed, ambulatory subject supports the diagnosis of Diabetes Mellitus. ADA recommended reference range Performed By: #### C BC, CMP ####[address] Glucose [Mass/volume] in Uri ne by Test stripOrdered By: Mayda Matthews on 06-02-2024 Glucose Test strip (U) [Mass/Vol] 100 mg/dL High Normal [facility] Glucose Test strip (U) [Mass/Vol] Glucose [Mass/volume] in Urine by Test strip [facility] Normal [facility] Hematocrit [Volume Fraction] of Blood by Automated countOrdered By: Brook Huddleston on 06-02-2024 Hematocrit (Bld) [Volume fraction] 30.2 % Low 38.8-50.0 [facility] Comment on above: Performed By: #### C BC, CMP ####[address] Hemoglobin Test strip Ql (U) Ordered By: Mayda Matthews on 06-02-2024 Hemoglobin Ql (U) 2+ High Negative [facility] Hemoglobin Ql (U) Hemoglobin [Presence ] in Urine by Test strip High Negative [facility] Hemoglobin [Mass/volume] in BloodOrdered By: Brook Huddleston on 06-02-2024 Hemoglobin (Bld) [Mass/Vol] 10.3 g/dL Low 13.0-17.0 [facility] Comment on above: Performed By: #### C BC, CMP ####[address] Hyaline casts [#/area] in Ur ine sediment by Automated countOrdered By: Mayda Senr on 06-02-2024 Hyaline casts Auto (Urine sed) [#/Area] None [LPF] 0-8 [facility] Hyaline casts Auto (Urine sed) [#/Area] Hyaline casts [#/area] in Urine sediment by Automated count 0-8 [facility] Ketones Test strip Ql (U)Ord ered By: Mayda Senr on 06-02-2024 Ketones Ql (U) Ketones [Presence] i n Urine by Test strip Negative [facility] Ketones [Presence] in Urine by Test stripOrdered By: Mayda Senr on 06-02-2024 Ketones Ql (U) Negative Normal Negative [facility] Comment on above: Order Comment: Name Collection Type:: Suprapubic Collection Performed By: #### C UU, ADDONUAPLUS ####[facility] [id number] Laboratory - Microbiology an d Antimicrobial susceptibilityOrdered By: Mayda Matthews on 06-02-2024 Bacteria identified Cx Nom (U) Jessica albicans Abnormal [facility] Leukocyte clumps [Presence] in Urine by AutomatedOrdered By: Mayda Senr on 06-02-2024 Leukocyte clumps Auto Ql (U) Many [LPF] High None Seen [facility] Leukocyte clumps Auto Ql (U) Leukocyte clumps [Presence] in Urine by Automated High None Seen [facility] Leukocyte esterase [Presence ] in Urine by Test stripOrdered By: Mayda Matthews on 06-02-2024 Leukocyte esterase Test strip Ql (U) 4+ High Negative [facility] Comment on above: Order Comment: Name Collection Type:: Suprapubic Collection Performed By: #### C UU, ADDONUAPLUS ####[facility] [id number] [place] [address] Leukocyte esterase Test strip Ql (U) Leukocyte esterase [Presence] in Urine by Test strip High Negative [facility] Leukocytes [#/area] in Urine sediment by Automated countOrdered By: Mayda Senr on 06-02-2024 WBC Auto (Urine sed) [#/Area] Innumerable [HPF] High 0-4 [facility] WBC Auto (Urine sed) [#/Area] Leukocytes [#/area] in Urine sediment by Automated count High 0-4 [facility] Leukocytes [#/volume] correc lizbet for nucleated erythrocytes in Blood by Automated counOrdered By: Brook Huddleston on 06-02-2024 WBC corrected for nucl RBC Auto (Bld) [#/Vol] 7.3 10*3/uL 4.1-10.5 [facility] Leukocytes [#/volume] in Blo od by Automated countOrdered By: Brook Huddleston on 06-02-2024 WBC (Bld) [#/Vol] 7.3 10*3/uL Normal 4.1-10.5 [facility] Comment on above: Performed By: #### C AYDEE, CMP ####[address] Lymphocytes [#/volume] in Bl ood by Automated countOrdered By: Brook Huddleston on 06-02-2024 Lymphocytes (Bld) [#/Vol] 0.7 10*3/uL Low 1.00-4.8 [facility] Comment on above: Performed By: #### C AYDEE, CMP ####[address] Lymphocytes/100 leukocytes i n Blood by Automated countOrdered By: Brook Huddleston on 06-02-2024 Lymphocytes/100 WBC (Bld) 9.8 % Normal . [facility] Comment on above: Performed By: #### C AYDEE, CMP ####[address] MCH [Entitic mass] by Automa lizbet countOrdered By: Brook Huddleston on 06-02-2024 MCH (RBC) [Entitic mass] 36.2 pg High 27.5-35.2 [facility] Comment on above: Performed By: #### C BC, CMP ####[address] MCHC Auto (RBC) [Mass/Vol]Or dered By: Brook Huddleston on 06-02-2024 MCHC (RBC) [Mass/Vol] 34.2 g/dL 32.5-35.6 [facility] MCV [Entitic volume] by Auto mated countOrdered By: Brook Huddleston on 06-02-2024 MCV (RBC) [Entitic vol] 106.0 fL High 83.5-101 F [facility] Comment on above: Performed By: #### C AYDEE, CMP ####[facility] [id number] Mucus [Presence] in Urine by AutomatedOrdered By: Mayda Matthews on 06-02-2024 Mucus Auto Ql (U) Rare [LPF] [facility] Mucus Auto Ql (U) Mucus [Presence] in Urine by Automated [facility] Neutrophils [#/volume] in Bl ood by Automated countOrdered By: Brook Huddleston on 06-02-2024 Neutrophils (Bld) [#/Vol] 5.7 10*3/uL Normal 1.8-7.7 [facility] Comment on above: Performed By: #### C AYDEE, CMP ####[facility] [id number] [place] [id number] [facility] Nitrite Test strip Ql (U)Ord ered By: Mayda Matthews on 06-02-2024 Nitrite Ql (U) Negative Negative [facility] Nitrite Ql (U) Nitrite [Presence] i n Urine by Test strip Negative [facility] No Panel InformationOrdered By: Mayda Matthews on 06-02-2024 Estimated GFR (CKD-EPI) 18.542 mL/Min [facility] Creatinine Clearance (Chem 21.23 [facility] No Panel InformationOrdered By: Dong Smith on 06-02-2024 Estimated GFR (CKD-EPI) 17.203 mL/Min [facility] Creatinine Clearance (Chem 19.50 [facility] No Panel Informationon 06-02 Interpretation and review of laboratory results Abnormal [facility] No Panel InformationOrdered By: Brook Huddleston on 06-02-2024 Estimated GFR (CKD-EPI) 17.203 mL/Min [facility] Creatinine Clearance (Chem 19.39 [facility] Nucleated erythrocytes [Pres ence] in Blood by Automated countOrdered By: Brook Huddleston on 06-02-2024 Nucleated RBC Auto Ql (Bld) 0.0 /100{WBC} 0-0.5 [facility] Platelet mean volume [Entiti c volume] in Blood by Automated countOrdered By: Brook Huddleston on 06-02-2024 Platelet mean volume (Bld) [Entitic vol] 8.2 fL Normal 6.6-10.1 [facility] Comment on above: Performed By: #### C BC, CMP ####[place] [id number] [place] Platelets [#/volume] in Bloo d by Automated countOrdered By: Brook Huddleston on 06-02-2024 Platelets (Bld) [#/Vol] 168 10*3/uL Normal 150-450 [facility] Comment on above: Performed By: #### C BC, CMP ####[place] [id number] [place] Potassium [Moles/volume] in Serum or PlasmaOrdered By: Mayda Matthews on 06-02-2024 Potassium [Moles/Vol] 5.0 mmol/L Normal 3.5-5.1 [facility] Comment on above: Performed By: #### B MP ####[place] [id number] [place] Potassium [Moles/volume] in Serum or PlasmaOrdered By: Dong Smith on 06-02-2024 Potassium [Moles/Vol] 6.1 mmol/L Off scale high 3.5-5.1 [facility] Comment on above: Critical Result Call ed to and read back by: NICOLLE GOODSON at: 06/02/2024 16:34:28 by:[id number] Result Comment: Crit ical Result Called to and read back by: NICOLLE GOODSON at: 06/02/2024 16:34:28 by:[id number] Performed By: #### B MP ####[place] [id number] [place] Potassium [Moles/volume] in Serum or PlasmaOrdered By: Brook Huddleston on 06-02-2024 Potassium [Moles/Vol] 6.1 mmol/L Off scale high 3.5-5.1 [facility] Comment on above: Critical Result Call ed to and read back by: BROOK PELLETIER at: 06/02/2024 14:03:14 by:JACKSON Critical Result Call ed to and read back by: BROOK PELLETIER at: 06/02/2024 14:03:14 by:JACKSON Result Comment: Crit ical Result Called to and read back by: BROOK PELLETIER at: 06/02/2024 14:03:14 by:JACKSON Performed By: #### C BC, CMP ####[place] [id number] [facility] Protein Test strip (U) [Mass /Vol]Ordered By: Mayda Matthews on 06-02-2024 Protein (U) [Mass/Vol] Protein [Mass/vol ume] in Urine by Test strip High Negative [facility] Protein [Mass/volume] in Ser um or PlasmaOrdered By: Brook Huddleston on 06-02-2024 Protein [Mass/Vol] 6.9 g/dL Normal 6.4-8.9 [facility] Comment on above: Performed By: #### C BC, CMP ####[place] [id number] [facility] Protein [Mass/volume] in Uri ne by Test stripOrdered By: Mayda Headleyomar on 06-02-2024 Protein (U) [Mass/Vol] 70 mg/dL High Negative [facility] Comment on above: Order Comment: Name Collection Type:: Suprapubic Collection Performed By: #### C UU, ADDONUAPLUS ####[address] [address] [facility] Serum globulin measurement b y calculation (mass/volume)Ordered By: Brook Huddleston on 06-02-2024 Globulin (S) [Mass/Vol] 3.0 g/dL Normal [facility] Comment on above: Performed By: #### C BC, CMP ####[place] [id number] [facility] Serum or plasma albumin/glob ulin mass ratioOrdered By: Brook Huddleston on 06-02-2024 Albumin/Globulin [Mass ratio] 1.3 {ratio} Normal [facility] Comment on above: Performed By: #### C BC, CMP ####[address] Serum or plasma anion gap de terminationOrdered By: Obfrankidanew Matthews on 06-02-2024 Anion gap [Moles/Vol] 11.0 mmol/L Normal 6.0-15.0 [facility] Comment on above: Performed By: #### B MP ####[address] Serum or plasma anion gap de terminationOrdered By: Dong Smith on 06-02-2024 Anion gap [Moles/Vol] 11.8 mmol/L Normal 6.0-15.0 [facility] Comment on above: Performed By: #### B MP ####[address] Serum or plasma anion gap de terminationOrdered By: Brook Huddleston on 06-02-2024 Anion gap [Moles/Vol] 10.1 mmol/L Normal 6.0-15.0 [facility] Comment on above: Performed By: #### C BC, CMP ####[place] [id number] [facility] Sodium [Moles/volume] in Ser um or PlasmaOrdered By: Obfrankidah Kayodeomar on 06-02-2024 Sodium [Moles/Vol] 136 mmol/L Normal 136-145 [facility] Comment on above: Performed By: #### B MP ####[place] [id number] [facility] Sodium [Moles/volume] in Ser um or PlasmaOrdered By: Dong Smith on 06-02-2024 Sodium [Moles/Vol] 133 mmol/L Low 136-145 [facility] Comment on above: Performed By: #### B MP ####[place] [id number] [facility] Sodium [Moles/volume] in Ser um or PlasmaOrdered By: Brook Huddleston on 06-02-2024 Sodium [Moles/Vol] 133 mmol/L Low 136-145 [facility] Comment on above: Performed By: #### C BC, CMP ####[address] [address] [facility] Specific gravity Test strip (U) [Rel density]Ordered By: Obaydah Daromar on 06-02-2024 Specific gravity (U) [Rel density] 1.013 1.001-1.03 0 [facility] Specific gravity (U) [Rel density] Specific gravity of Urine by Test strip 1.001-1.03 0 [facility] Urea nitrogen [Mass/volume] in Serum or PlasmaOrdered By: Obaydah Daromar on 06-02-2024 Urea nitrogen [Mass/Vol] 44 mg/dL [address] Comment on above: Performed By: #### B MP ####[place] [id number] [facility] Urea nitrogen [Mass/volume] in Serum or PlasmaOrdered By: Dong Smith on 06-02-2024 Urea nitrogen [Mass/Vol] 48 mg/dL [address] Comment on above: Performed By: #### B MP ####[address] [address] [facility] Urea nitrogen [Mass/volume] in Serum or PlasmaOrdered By: Brook Huddleston on 06-02-2024 Urea nitrogen [Mass/Vol] 48 mg/dL [address] Comment on above: Performed By: #### C BC, CMP ####[place] [id number] [facility] Urine Cultureon 06-02-2024 Bacteria identified Cx Nom (U) ORGANISM: Jessica albicans (O:CANALB) [place] Count 50,000 PERFORMED BY: [facility] [address] [place] [id number] PATHOLOGIST NUCLEAR STATION OPERATOR MEAGAN HARDING M.D. Normal [facility] Comment on above: Performed By: #### C UU, ADDONUAPLUS ####[facility] [id number] Urine appearanceOrdered By: Mayda Matthews on 06-02-2024 Appearance (U) Cloudy Critically abnormal Clear [facility] Comment on above: Order Comment: Name Collection Type:: Suprapubic Collection Performed By: #### C UU, ADDONUAPLUS ####[facility] [id number] [address] Urine cultureOrdered By: Torie Matthews on 06-02-2024 Urine culture Abnormal [facility] Urobilinogen Test strip (U) [Mass/Vol]Ordered By: Mayda Matthews on 06-02-2024 Urobilinogen (U) [Mass/Vol] Normal mg/dL Normal [facility] Urobilinogen (U) [Mass/Vol] Urobilinogen [Mass/volume] in Urine by Test strip Normal [facility] Yeast.budding [Presence] in Urine by Computer assisted methodOrdered By: Mayda Matthews on 06-02-2024 Yeast.budding Computer assisted Ql (U) 2+ [HPF] High None Seen [facility] Yeast.budding Computer assisted Ql (U) Yeast.budding [Presence] in Urine by Computer assisted method High None Seen [facility] pH Test strip (U)Ordered By: Mayda Matthews on 06-02-2024 pH (U) pH of Urine by Test strip 5.0-9.0 [facility] pH of Urine by Test stripOrd ered By: Mayda Matthews on 06-02-2024 pH (U) 6.0 [pH] Normal 5.0-9.0 [facility] Comment on above: Order Comment: Name Collection Type:: Suprapubic Collection Performed By: #### C UU, ADDONUAPLUS ####[facility] [id number] No Panel InformationOrdered By: Orquidea Cortez on 06-01-2024 Miscellaneous Pathology Test See comment [facility] Comment on above: See report. Scanned copy available in EMR. See comment [facility] Pathology Request for Lab Co rpon 06-01-2024 Pathology Request for Lab Wendy Normal [facility] Comment on above: Order Comment: PATHO LOGY GI SPECIMEN Result Comment: See report. Scanned copy available in EMR.PERFORMED BY:[address] [place], [place] [phone] MEDICAL DIRECTORMEAGAN HARDING M.D. Performed By: #### P ATH TO [facility] ####[facility] Y[address] [place] [address] 24 hour urine albumin/total protein ratio by electrophoresisOrdered By: Brook Huddleston on 05-20-2024 Albumin Elph (24H U) [Mass fraction] Albumin/Protein.total in 24 hour Urine by Electrophoresis . [facility] 24 hour urine gamma globulin /total protein ratio by electrophoresisOrdered By: Brook Huddleston on 05-20-2024 Gamma globulin Elph (24H U) [Mass fraction] Gamma globulin/Protein.total in 24 hour Urine by Electrophoresis . [facility] 24 hour urine protein monocl onal/total protein by electrophoresisOrdered By: Brook Huddleston on 05-20-2024 Protein.monoclonal Elph (24H U) [Mass fraction] Protein.monoclonal/Protein .total in 24 hour Urine by Electrophoresis Not Observed [facility] Albumin [Mass/volume] in Ser um or PlasmaOrdered By: Brook Huddleston on 05-20-2024 Albumin [Mass/Vol] 3.6 g/dL Normal 2.9-4.4 [facility] Comment on above: Performed By: #### U PE RAND, IMM RADHA, KAPPA, SPE, JOSE C,URINE ####[facility] ,#### LDH ####[facility] [id number] [place] [address] Albumin/Protein.total in 24 hour Urine by ElectrophoresisOrdered By: Brook Huddleston on 05-20-2024 Albumin Elph (24H U) [Mass fraction] 42.9 % . [facility] CBC W Auto Differential pane l (Bld)on 05-20-2024 Basophils (Bld) [#/Vol] 0.0 10*3/uL 0.0 - 0.2 10*3/uL [facility] Basophils/100 WBC Manual cnt (Syn fld) 0.4 % . [facility] Eosinophils (Bld) [#/Vol] 0.4 10*3/uL 0.0 - 0.45 10*3/uL [facility] Eosinophils/100 WBC Manual cnt (Syn fld) 6.2 % . [facility] Erythrocyte distribution width (RBC) [Ratio] 16.6 % High 12.0 - 14.8 % [facility] Hematocrit (Bld) [Volume fraction] 30.6 % Low 38.8 - 50.0 % [facility] Hemoglobin (Bld) [Mass/Vol] 10.3 g/dL Low 13.0 - 17.0 g/dL [facility] Interpretation and review of laboratory results Abnormal [facility] Lymphocytes (Bld) [#/Vol] 1.1 10*3/uL 1.00 - 4.8 10*3/uL [facility] Lymphocytes/100 WBC Manual cnt (Syn fld) 18.0 % . [facility] MCH (RBC) [Entitic mass] 35.0 pg 27.5 - 35.2 pg [facility] MCHC (RBC) [Mass/Vol] 33.6 g/dL 32.5 - 35.6 g/dL [facility] MCV (RBC) [Entitic vol] 104.3 fL High 83.5 - 101 fL [facility] Monocytes (Bld) [#/Vol] 0.3 10*3/uL 0.0 - 0.8 10*3/uL [facility] Monocytes+Macrophages/1 00 WBC Manual cnt (Syn fld) 4.9 % . [facility] Neutrophils (Bld) [#/Vol] 4.3 10*3/uL 1.8 - 7.7 10*3/uL [facility] Neutrophils/100 WBC Manual cnt (Syn fld) 70.5 % . [facility] NRBC 0.1 /100{WBC} 0 - 0.5 /100{WBC} [facility] Platelet mean volume (Bld) [Entitic vol] 8.2 fL 6.6 - 10.1 fL [facility] Platelets (Bld) [#/Vol] 201 10*3/uL 150 - 450 10*3/uL [facility] RBC LM.HPF (Urine sed) [#/Area] 2.93 /[HPF] Low 3.90 - 5.60 [facility] WBC (Bld) [#/Vol] 6.0 10*3/uL 4.1 - 10.5 10*3/uL [facility] WBC LM.HPF (Urine sed) [#/Area] 6.0 10*3/uL 4.1 - 10.5 10*3/uL [facility] Complete Blood Count Auto Di ffon 05-20-2024 Basophils (Bld) [#/Vol] 0.0 10*3/uL Normal 0.0-0.2 [facility] Comment on above: Result Comment: PERF ORMED BY:[address] [place], [place] [phone] MEDICAL DIRECTORMEAGAN HARDING M.D. Performed By: #### C MP, CBC ####[address] Basophils/100 WBC (Bld) 0.4 % Normal . T [facility] Comment on above: Performed By: #### C MP, CBC ####[address] Eosinophils (Bld) [#/Vol] 0.4 10*3/uL Normal 0.0-0.45 [facility] Comment on above: Performed By: #### C MP, CBC ####[address] Eosinophils/100 WBC (Bld) 6.2 % Normal . [facility] Comment on above: Performed By: #### C MP, CBC ####[address] Erythrocyte distribution width (RBC) [Ratio] 16.6 % High 12.0-14.8 [facility] Comment on above: Performed By: #### C MP, CBC ####[address] Hematocrit (Bld) [Volume fraction] 30.6 % Low 38.8-50.0 [facility] Comment on above: Performed By: #### C MP, CBC ####[address] Hemoglobin (Bld) [Mass/Vol] 10.3 g/dL Low 13.0-17.0 [facility] Comment on above: Performed By: #### C MP, CBC ####[address] Lymphocytes (Bld) [#/Vol] 1.1 10*3/uL Normal 1.00-4.8 [facility] Comment on above: Performed By: #### C MP, CBC ####[address] Lymphocytes/100 WBC (Bld) 18.0 % Normal . [facility] Comment on above: Performed By: #### C MP, CBC ####[address] MCH (RBC) [Entitic mass] 35.0 pg Normal 27.5-35.2 [facility] Comment on above: Performed By: #### C MP, CBC ####[address] MCV (RBC) [Entitic vol] 104.3 fL High 83.5-101 [facility] Comment on above: Performed By: #### C MP, CBC ####[address] Mean Corpuscular HGB Conc 33.6 g/dL Normal 32.5-35.6 [facility] Comment on above: Performed By: #### C MP, CBC ####[address] Monocytes (Bld) [#/Vol] 0.3 10*3/uL Normal 0.0-0.8 [facility] Comment on above: Performed By: #### C MP, CBC ####[address] Monocytes/100 WBC (Bld) 4.9 % Normal . [facility] Comment on above: Performed By: #### C MP, CBC ####[address] [address] [facility] Neutrophils (Bld) [#/Vol] 4.3 10*3/uL Normal 1.8-7.7 [facility] Comment on above: Performed By: #### C MP, CBC ####[place] [id number] [facility] Neutrophils/100 WBC (Bld) 70.5 % Normal . [facility] Comment on above: Performed By: #### C MP, CBC ####[address] NRBC% 0.1 /100{WBC} Normal 0-0.5 [facility] Comment on above: Performed By: #### C MP, CBC ####[address] Platelet mean volume (Bld) [Entitic vol] 8.2 fL Normal 6.6-10.1 [facility] Comment on above: Performed By: #### C MP, CBC ####[address] Platelets (Bld) [#/Vol] 201 10*3/uL Normal 150-450 [facility] Comment on above: Performed By: #### C MP, CBC ####[address] RBC (Bld) [#/Vol] 2.93 10*6/uL Low 3.90-5.60 [facility] Comment on above: Performed By: #### C MP, CBC ####[place] [id number] [facility] WBC (Bld) [#/Vol] 6.0 10*3/uL Normal 4.1-10.5 [facility] Comment on above: Performed By: #### C MP, CBC ####[place] [id number] [facility] Comprehensive Metabolic Pane mana 05-20-2024 Albumin [Mass/Vol] 3.7 g/dL Normal 3.5-5.7 [facility] Comment on above: Performed By: #### C MP, CBC ####[place] [id number] [facility] Albumin/Globulin [Mass ratio] 1.3 {ratio} Normal [facility] Comment on above: Performed By: #### C MP, CBC ####[place] [id number] [facility] ALP [Catalytic activity/Vol] 109 U/L High 34-104 [facility] Comment on above: Performed By: #### C MP, CBC ####[place] [id number] [facility] ALT [Catalytic activity/Vol] 14 U/L Normal 7-52 [facility] Comment on above: Performed By: #### C MP, CBC ####[place] [id number] [facility] Anion gap [Moles/Vol] 11.5 mmol/L Normal 6.0-15.0 [facility] Comment on above: Performed By: #### C MP, CBC ####[place] [id number] [facility] AST [Catalytic activity/Vol] 15 U/L Normal 13-39 [facility] Comment on above: Performed By: #### C MP, CBC ####[place] [id number] [facility] Bilirubin [Mass/Vol] 0.4 mg/dL Normal 0.3-1.0 [facility] Comment on above: Performed By: #### C MP, CBC ####[place] [id number] [facility] Calcium [Mass/Vol] 8.9 mg/dL Normal 8.6-10.3 [facility] Comment on above: Performed By: #### C MP, CBC ####[place] [id number] [facility] Chloride [Moles/Vol] 109 mmol/L High 98-107 [facility] Comment on above: Performed By: #### C MP, CBC ####[address] [address] [facility] CO2 [Moles/Vol] 24.0 mmol/L Normal 21.0-31.0 [facility] Comment on above: Performed By: #### C MP, CBC ####[address] [address] [facility] Creatinine [Mass/Vol] 2.58 mg/dL High 0.70-1.30 [facility] Comment on above: Performed By: #### C MP, CBC ####[address] [address] [place] Creatinine Clr Calc Pharmacy 26.08 Normal [facility] Comment on above: Result Comment: PERF ORMED BY:[address] [place], [place] [phone] MEDICAL DIRECTORMEAGAN HARDING M.D. Performed By: #### C MP, CBC ####[address] [address] [facility] GFR/1.73 sq M.predicted MDRD (S/P/Bld) [Vol rate/Area] 24.550 mL/min/{1.73_m2} Normal [facility] Comment on above: Performed By: #### C MP, CBC ####[address] [address] [facility] Globulin (S) [Mass/Vol] 2.9 g/dL Normal T he [facility] Comment on above: Performed By: #### C MP, CBC ####[place] [id number] [facility] Glucose [Mass/Vol] 108 mg/dL High 70-100 [facility] Comment on above: Result Comment: [place] Glucose Reference Range is dependent on time and content of last meal. Glucose of more than 200 mg/dL in a nonstressed, ambulatory subject supports the diagnosis of Diabetes Mellitus. ADA recommended reference range Performed By: #### C MP, CBC ####[address] [place] [address] Potassium [Moles/Vol] 4.5 mmol/L Normal 3.5-5.1 [facility] Comment on above: Performed By: #### C MP, CBC ####[place] [id number] [address] Protein [Mass/Vol] 6.6 g/dL Normal 6.4-8.9 [facility] Comment on above: Performed By: #### C MP, CBC ####[place] [id number] [address] Sodium [Moles/Vol] 140 mmol/L Normal 136-145 [facility] Comment on above: Performed By: #### C MP, CBC ####[place] [id number] [address] Urea nitrogen [Mass/Vol] 29 mg/dL High 7-25 [facility] Comment on above: Performed By: #### C MP, CBC ####[address] Comprehensive metabolic pane mana 05-20-2024 Albumin [Mass/Vol] 3.7 g/dL 3.5 - 5.7 g/dL [facility] Albumin/Globulin [Mass ratio] 1.3 {ratio} [facility] ALP [Catalytic activity/Vol] 109 U/L High 34 - 104 U/L [facility] ALT [Catalytic activity/Vol] 14 U/L 7 - 52 U/L [facility] Anion gap [Moles/Vol] 11.5 mmol/L 6.0 - 15.0 [facility] AST [Catalytic activity/Vol] 15 U/L 13 - 39 U/L [facility] Bilirubin [Mass/Vol] 0.4 mg/dL 0.3 - 1 .0 mg/dL [facility] Calcium [Mass/Vol] 8.9 mg/dL 8.6 - 10. 3 mg/dL [facility] Chloride [Moles/Vol] 109 mmol/L High 98 - 10 7 mmol/L [facility] CO2 [Moles/Vol] 24.0 mmol/L 21.0 - 31.0 mmol/L [facility] Creatinine (U) [Mass/Vol] 2.58 mg/dL High 0.70 - 1.30 mg/dL [facility] CREATININE CLR CALC PHARMACY 26.08 [facility] GFR/1.73 sq M.predicted MDRD (S/P/Bld) [Vol rate/Area] 24.550 mL/min/{1.73_m2} [facility] Globulin (S) [Mass/Vol] 2.9 g/dL [facility] Glucose [Mass/Vol] 108 mg/dL High 70 - 100 mg/dL [facility] Comment on above: Random Glucose Refer ence Range is dependent on time and content of last meal. Glucose of more than 200 mg/dL in a nonstressed, ambulatory subject supports the diagnosis of Diabetes Mellitus. ADA recommended reference range Interpretation and review of laboratory results Abnormal [facility] Potassium [Moles/Vol] 4.5 mmol/L 3.5 - 5.1 mmol/L [facility] Protein [Mass/Vol] 6.6 g/dL 6.4 - 8.9 g/dL [facility] Sodium [Moles/Vol] 140 mmol/L 136 - 145 mmol/L [facility] Urea nitrogen [Mass/Vol] 29 mg/dL High 7 - 25 mg/dL [facility] Free K+L LT Chains, Qn, Son 05-20-2024 Free [place] Light Chains, S 48.4 mg/L High 3.3-19.4 [facility] Comment on above: Performed By: #### U PE RAND, IMM RADHA, KAPPA, SPE, JOSE C,URINE ####[facility] ,#### LDH ####[place] [id number] [address] Free [place] Light Chains, S 32.4 mg/L High 5.7-26.3 [facility] Comment on above: Performed By: #### U PE RAND, IMM RADHA, KAPPA, SPE, JOSE C,URINE ####[facility] ,#### LDH ####[place] [id number] [address] [place]/Lambda Ratio, S 1.49 Normal 0.26-1.65 [facility] Comment on above: Result Comment: Perf ormed at: CB - [facility] [address] [id number] Director Of Manufacturing: Melchor Agrawal PhD, Phone: [phone] BY:[facility] [place], [place] [phone] MEDICAL DIRECTORMEAGAN HARDING M.D. Performed By: #### U PE RAND, IMM RADHA, KAPPA, SPE, JOSE C,URINE ####[facility] ,#### LDH ####[facility] [place], [place] [id number] [facility] Gamma globulin/Protein.total in 24 hour Urine by ElectrophoresisOrdered By: Brook Huddleston on 05-20-2024 Gamma globulin Elph (24H U) [Mass fraction] 21.1 % . [facility] IgA [Mass/volume] in Serum o r PlasmaOrdered By: Brook Huddleston on 05-20-2024 IgA [Mass/Vol] 184 mg/dL 61-437 [facility] IgG [Mass/volume] in Serum o r PlasmaOrdered By: Brook Huddleston on 05-20-2024 IgG [Mass/Vol] 1098 mg/dL [phone] [facility] IgM [Mass/volume] in Serum o r PlasmaOrdered By: Brook Huddleston on 05-20-2024 IgM [Mass/Vol] 64 mg/dL 15-143 [facility] Comment on above: Performed at: [address] [id number] Director: Melchor Agrawal PhD, Phone: [phone] Immunofixation for UrineOrde red By: Brook Huddleston on 05-20-2024 Interpretation Immunofixation (U) [Interp] Comment . [facility] Comment on above: No monoclonality det ected.Performed at: [facility] [address] [place], [place] [id number] Director: Melchor Agrawal PhD, Phone: [phone] Interpretation Immunofixation (U) [Interp] Immunofixation for Urine . [facility] Comment on above: No monoclonality det ected.Performed at: [facility] [address] [place], [place] [id number] Director: Melchor Agrawal PhD, Phone: [phone] Immunofixation, (JOSE C), Urine on 05-20-2024 Immunofixation, (JOSE C), Urine Comment Normal . [facility] Comment on above: Result Comment: No m onoclonality detected. Performed at: [facility] [place] [address] [place], [place] [id number] Director Of Manufacturing: Melchor Agrawal PhD, Phone: [phone] Performed By: #### U PE RAND, IMM RADHA, KAPPA, SPE, JOSE C,URINE ####[facility] ,#### LDH ####[facility] [place] [address] Immunoglobulin light chains. kappa.free [Mass/volume] in SerumOrdered By: Brook Huddleston on 05-20-2024 Immunoglobulin light chains.kappa.free (S) [Mass/Vol] 48.4 mg/L High 3.3-19.4 [facility] Immunoglobulin light chains. kappa.free/Immunoglobulin light chains.lambda.free [MassOrdered By: Brook Huddleston on 05-20-2024 Immunoglobulin light chains.kappa.free/Immun oglobulin light chains.lambda.free (S) [Mass ratio] 1.49 0.26-1.65 [facility] Comment on above: Performed at: [facility] [address] [place], [place] [id number] Director: Melchor Agrawal PhD, Phone: [phone] Immunoglobulin light chains. lambda.free [Mass/volume] in Serum or PlasmaOrdered By: Brook Huddleston on 05-20-2024 Immunoglobulin light chains.lambda.free [Mass/Vol] 32.4 mg/L High 5.7-26.3 [facility] Immunoglobulins A/G/M, Qn, S yue 05-20-2024 Immunoglobulin A, Serum 184 mg/dL Normal 61-437 T [facility] Comment on above: Performed By: #### U PE RAND, IMM RADAH, KAPPA, SPE, JOSE C,URINE ####[facility] ,#### LDH ####[address] Immunoglobulin G 1098 mg/dL Normal 603-1613 [facility] Comment on above: Performed By: #### U PE RAND, IMM RADHA, KAPPA, SPE, JOSE C,URINE ####[facility] ,#### LDH ####[address] Immunoglobulin M, Serum 64 mg/dL Normal 15-143 T he [facility] Comment on above: Result Comment: Perf ormed at: - [facility] [address] [id number] Director Of Manufacturing: Melchor Agrawal PhD, Phone: [phone] Performed By: #### U PE RAND, IMM RADHA, KAPPA, SPE, JOSE C,URINE ####[facility] ,#### LDH ####[address] LDH Lactate Dehydrogenaseon 05-20-2024 LDH Lactate Dehydrogenase 127 U/L Low 140-271 [facility] Comment on above: Result Comment: PERF ORMED BY:[address] [place]ay[place], [place] [phone] MEDICAL DIRECTORMEAGAN HARDING M.D. Performed By: #### U PE RAND, IMM RADHA, KAPPA, SPE, JOSE C,URINE ####[facility] ,#### LDH ####[address] LDH Lactate to pyruvate reac tion [Catalytic activity/Vol]on 05-20-2024 Interpretation and review of laboratory results Abnormal [facility] LDH LACTATE DEHYDROGENASE 127 U/L Low 140 - 271 U/L [facility] Lactate dehydrogenase [Enzym atic activity/volume] in Serum or Plasma by Lactate to pyOrdered By: Brook Huddleston on 05-20-2024 LDH Lactate to pyruvate reaction [Catalytic activity/Vol] 127 U/L Low 140-271 [facility] LDH Lactate to pyruvate reaction [Catalytic activity/Vol] Lactate dehydrogenase [Enzymatic activity/volume] in Serum or Plasma by Lactate to py Low 140-271 [facility] No Panel InformationOrdered By: Brook Huddleston on 05-20-2024 Protein Electrophoresis M-Anselmo Not observed g/dL Not Observed [facility] Protein Electrophoresis Note Comment . [facility] Comment on above: Protein electrophore sis scan will follow via computer,mail, or technical documentation specialist delivery.Performed at: [facility] [address] [id number] Director: Melchor Agrawal PhD, Phone: [phone] Urine Random Prot Electrophor Note Comment . [facility] Comment on above: Protein electrophore sis scan will follow via computer,mail, or technical documentation specialist delivery.Performed at: [facility] [address] [id number] Director: Melchor Agrawal PhD, Phone: [phone] Not observed g/dL Not Observed [facility] Comment . [facility] Protein Electro, Random Urin yovany 05-20-2024 Albumin, Urine 42.9 % Normal . [facility] Comment on above: Performed By: #### U PE RAND, IMM RADHA, KAPPA, SPE, JOSE C,URINE ####[facility] ,#### LDH ####[address] Krodc-2-Xqntgnog, Urine 3.1 % Normal . [facility] Comment on above: Performed By: #### U PE RAND, IMM RADHA, KAPPA, SPE, JOSE C,URINE ####[facility] ,#### LDH ####[address] [address] [place] Bnsdi-8-Esaeellw, Urine 12.2 % Normal . [facility] Comment on above: Performed By: #### U PE RAND, IMM RADHA, KAPPA, SPE, JOSE C,URINE ####[facility] ,#### LDH ####[place] [id number] [place] Beta Globulin, Urine 20.7 % Normal . [facility] Comment on above: Performed By: #### U PE RAND, IMM RADHA, KAPPA, SPE, JOSE C,URINE ####[facility] ,#### LDH ####[address] Gamma Globulin, Urine 21.1 % Normal . [facility] Comment on above: Performed By: #### U PE RAND, IMM RADHA, KAPPA, SPE, JOSE C,URINE ####[facility] ,#### LDH ####[address] M-Anselmo % Not Observed Normal Not Observed [facility] Comment on above: Performed By: #### U PE RAND, IMM RADHA, KAPPA, SPE, JOSE C,URINE ####[facility] ,#### LDH ####[address] Please Note: Comment Normal . [facility] Comment on above: Result Comment: Prot ein electrophoresis scan will follow via computer, mail, or technical documentation specialist delivery. Performed at: - [place] [id number] Director Of Manufacturing: Melchor Agrawal PhD, Phone: [phone] BY:[address]HeenaEATONTON, [place] [phone] MEDICAL DIRECTORMEAGAN HARDING M.D. Performed By: #### U PE RAND, IMM RADHA, KAPPA, SPE, JOSE C,URINE ####[facility] ,#### LDH ####[address] Protein Electrophoresis, Ser umon 05-20-2024 Wheui-0-Dnrtcwjz 0.3 g/dL Normal 0.0-0.4 [facility] Comment on above: Performed By: #### U PE RAND, IMM RADHA, KAPPA, SPE, JOSE C,URINE ####[facility] ,#### LDH ####[address] Nwijh-7-Cwpmkvse 0.8 g/dL Normal 0.4-1.0 [facility] Comment on above: Performed By: #### U PE RAND, IMM RADHA, KAPPA, SPE, JOSE C,URINE ####[facility] ,#### LDH ####[address] Beta Globulin 0.8 g/dL Normal 0.7-1.3 [facility] Comment on above: Performed By: #### U PE RAND, IMM RADHA, KAPPA, SPE, JOSE C,URINE ####[facility] ,#### LDH ####[address] Gamma Globulin 1.0 g/dL Normal 0.4-1.8 [facility] Comment on above: Performed By: #### U PE RAND, IMM RADHA, KAPPA, SPE, JOSE C,URINE ####[facility] ,#### LDH ####[address] M-Anselmo Not Observed Normal Not Observed [facility] Comment on above: Performed By: #### U PE RAND, IMM RADHA, KAPPA, SPE, JOSE C,URINE ####[facility] ,#### LDH ####[address] SPE-Note Comment Normal . [facility] Comment on above: Result Comment: Prot ein electrophoresis scan will follow via computer, mail, or technical documentation specialist delivery. Performed at: - [address], [place], [place] [id number] Director Of Manufacturing: Melchor Agrawal PhD, Phone: [phone] Performed By: #### U PE RAND, IMM RADHA, KAPPA, SPE, JOSE C,URINE ####[facility] ,#### LDH ####[address] Protein [Mass/volume] in Ser um or PlasmaOrdered By: Brook Huddleston on 05-20-2024 Protein [Mass/Vol] 6.5 g/dL Normal 6.0-8.5 [facility] Comment on above: Performed By: #### U PE RAND, IMM RADHA, KAPPA, SPE, JOSE C,URINE ####[facility] ,#### LDH ####[address] Protein [Mass/volume] in Uri neOrdered By: Brook Huddleston on 05-20-2024 Protein (U) [Mass/Vol] 256.8 mg/dL Normal Not Estab. F [facility] Comment on above: Results confirmed on dilution. Result Comment: Resu lts confirmed on dilution. Performed By: #### U PE RAND, IMM RADHA, KAPPA, SPE, JOSE C,URINE ####[facility] ,#### LDH ####[address] Protein.monoclonal/Protein.t otal in 24 hour Urine by ElectrophoresisOrdered By: Brook Huddleston on 05-20-2024 Protein.monoclonal Elph (24H U) [Mass fraction] Not observed % Not Observed [facility] Serum free kappa light chain measurementOrdered By: Brook Huddleston on 05-20-2024 Immunoglobulin light chains.kappa.free (S) [Mass/Vol] Immunoglobulin light chains.kappa.free [Mass/volume] in Serum High 3.3-19.4 [facility] Serum globulin measurement ( mass/volume)Ordered By: Brook Huddleston on 05-20-2024 Globulin (S) [Mass/Vol] 2.9 g/dL Normal 2.2-3.9 F [facility] Comment on above: Performed By: #### U PE RAND, IMM RADHA, KAPPA, SPE, JOSE C,URINE ####[facility] ,#### LDH ####[place] [id number] [facility] Globulin (S) [Mass/Vol] Serum globulin m easurement (mass/volume) 2.2-3.9 [facility] Serum immunoglobulin free ka ppa light chains/immunoglobulin free lambda light chainsOrdered By: Brook Huddleston on 05-20-2024 Immunoglobulin light chains.kappa.free/Immun oglobulin light chains.lambda.free (S) [Mass ratio] Immunoglobulin light chains.kappa.free/Immunogl obulin light chains.lambda.free [Mass 0.26-1.65 [facility] Comment on above: Performed at: [facility] [address] [id number] Director: Melchor Agrawal PhD, Phone: [phone] Serum or plasma IgA measurem ent (mass/volume)Ordered By: Brook Huddleston on 05-20-2024 IgA [Mass/Vol] IgA [Mass/volume] in Serum or Plasma 61-437 [facility] Serum or plasma IgG measurem ent (mass/volume)Ordered By: Brook Huddleston on 05-20-2024 IgG [Mass/Vol] IgG [Mass/volume] in Serum or Plasma 603-1613 [facility] Serum or plasma IgM measurem ent (mass/volume)Ordered By: Brook Huddleston on 05-20-2024 IgM [Mass/Vol] IgM [Mass/volume] in Serum or Plasma 15-143 [facility] Comment on above: Performed at: [facility] [address] [id number] Director: Melchor Agrawal PhD, Phone: [phone] Serum or plasma albumin reese urement (mass/volume)Ordered By: Brook Huddleston on 05-20-2024 Albumin [Mass/Vol] Albumin [Mass/volume ] in Serum or Plasma 2.9-4.4 [facility] Serum or plasma albumin/glob ulin mass ratioOrdered By: Brook Huddleston on 05-20-2024 Albumin/Globulin [Mass ratio] 1.2 {ratio} Normal 0.7-1.7 [facility] Comment on above: Performed By: #### U PE RAND, IMM RADHA, KAPPA, SPE, JOSE C,URINE ####[facility] ,#### LDH ####[facility] [address] [place] [address] [facility] Albumin/Globulin [Mass ratio] Serum or plasma albumin/globulin mass ratio 0.7-1.7 [facility] Serum or plasma alpha 1 glob ulin measurement by electrophoresis (mass/volume)Ordered By: Brook Huddleston on 05-20-2024 Alpha 1 globulin Elph [Mass/Vol] 0.3 g/dL 0.0-0.4 [facility] Alpha 1 globulin Elph [Mass/Vol] Serum or plasma alpha 1 globulin measurement by electrophoresis (mass/volume) 0.0-0.4 [facility] Serum or plasma alpha 2 glob ulin measurement by electrophoresis (mass/volume)Ordered By: Brook Huddleston on 05-20-2024 Alpha 2 globulin Elph [Mass/Vol] 0.8 g/dL 0.4-1.0 [facility] Alpha 2 globulin Elph [Mass/Vol] Serum or plasma alpha 2 globulin measurement by electrophoresis (mass/volume) 0.4-1.0 [facility] Serum or plasma beta globuli n measurement by electrophoresis (mass/volume)Ordered By: Brook Huddleston on 05-20-2024 Beta globulin Elph [Mass/Vol] 0.8 g/dL 0.7-1.3 [facility] Beta globulin Elph [Mass/Vol] Serum or plasma beta globulin measurement by electrophoresis (mass/volume) 0.7-1.3 [facility] Serum or plasma gamma globul in measurement by electrophoresis (mass/volume)Ordered By: Brook Huddleston on 05-20-2024 Gamma globulin Elph [Mass/Vol] 1.0 g/dL 0.4-1.8 [facility] Gamma globulin Elph [Mass/Vol] Serum or plasma gamma globulin measurement by electrophoresis (mass/volume) 0.4-1.8 [facility] Serum or plasma immunoglobul in free lambda light chains measurement (mass/volume)Ordered By: Brook Huddleston on 05-20-2024 Immunoglobulin light chains.lambda.free [Mass/Vol] Immunoglobulin light chains.lambda.free [Mass/volume] in Serum or Plasma High 5.7-26.3 [facility] Serum total protein measurem entOrdered By: Brook Huddleston on 05-20-2024 Protein [Mass/Vol] Protein [Mass/volume ] in Serum or Plasma 6.0-8.5 [facility] Urine alpha 1 globulin/total protein by electrophoresisOrdered By: Brook Huddleston on 05-20-2024 Alpha 1 globulin Elph (U) [Mass fraction] 3.1 % . [facility] Alpha 1 globulin Elph (U) [Mass fraction] Urine alpha 1 globulin/total protein by electrophoresis . [facility] Urine alpha 2 globulin/total protein ratio by electrophoresisOrdered By: Brook Huddleston on 05-20-2024 Alpha 2 globulin Elph (U) [Mass fraction] 12.2 % . [facility] Alpha 2 globulin Elph (U) [Mass fraction] Urine alpha 2 globulin/total protein ratio by electrophoresis . [facility] Urine beta globulin measurem ent by electrophoresis (mass/volume)Ordered By: Brook Huddleston on 05-20-2024 Beta globulin Elph (U) [Mass/Vol] 20.7 % . [facility] Beta globulin Elph (U) [Mass/Vol] Urine beta globulin measurement by electrophoresis (mass/volume) . [facility] Urine protein measurement (m ass/volume)Ordered By: Brook Huddleston on 05-20-2024 Protein (U) [Mass/Vol] Protein [Mass/vol ume] in Urine Not Estab. [facility] Comment on above: Results confirmed on dilution. CBC W Auto Differential pane l (Bld)on 05-17-2024 Basophils (Bld) [#/Vol] 0.0 10*3/uL 0.0 - 0.2 10*3/uL [facility] Basophils/100 WBC Manual cnt (Syn fld) 0.3 % . [facility] Eosinophils (Bld) [#/Vol] 0.4 10*3/uL 0.0 - 0.45 10*3/uL [facility] Eosinophils/100 WBC Manual cnt (Syn fld) 6.3 % . [facility] Erythrocyte distribution width (RBC) [Ratio] 16.5 % High 12.0 - 14.8 % [facility] Hematocrit (Bld) [Volume fraction] 32.3 % Low 38.8 - 50.0 % [facility] Hemoglobin (Bld) [Mass/Vol] 10.8 g/dL Low 13.0 - 17.0 g/dL [facility] Interpretation and review of laboratory results Abnormal [facility] Lymphocytes (Bld) [#/Vol] 1.2 10*3/uL 1.00 - 4.8 10*3/uL [facility] Lymphocytes/100 WBC Manual cnt (Syn fld) 17.5 % . [facility] MCH (RBC) [Entitic mass] 35.1 pg 27.5 - 35.2 pg [facility] MCHC (RBC) [Mass/Vol] 33.4 g/dL 32.5 - 35.6 g/dL [facility] MCV (RBC) [Entitic vol] 105.2 fL High 83.5 - 101 fL [facility] Monocytes (Bld) [#/Vol] 0.5 10*3/uL 0.0 - 0.8 10*3/uL [facility] Monocytes+Macrophages/1 00 WBC Manual cnt (Syn fld) 7.3 % . [facility] Neutrophils (Bld) [#/Vol] 4.7 10*3/uL 1.8 - 7.7 10*3/uL [facility] Neutrophils/100 WBC Manual cnt (Syn fld) 68.6 % . [facility] NRBC 0.1 /100{WBC} 0 - 0.5 /100{WBC} [facility] Platelet mean volume (Bld) [Entitic vol] 8.2 fL 6.6 - 10.1 fL [facility] Platelets (Bld) [#/Vol] 192 10*3/uL 150 - 450 10*3/uL [facility] RBC LM.HPF (Urine sed) [#/Area] 3.07 /[HPF] Low 3.90 - 5.60 [facility] WBC (Bld) [#/Vol] 6.9 10*3/uL 4.1 - 10.5 10*3/uL [facility] WBC LM.HPF (Urine sed) [#/Area] 6.9 10*3/uL 4.1 - 10.5 10*3/uL [facility] Complete Blood Count Auto Di ffon 05-17-2024 Basophils (Bld) [#/Vol] 0.0 10*3/uL Normal 0.0-0.2 [facility] Comment on above: Result Comment: PERF ORMED BY:[place] [address] [address] [place], [place] [phone] MEDICAL DIRECTORMEAGAN HARDING M.D. Performed By: #### C BC, CMP ####[address] Basophils/100 WBC (Bld) 0.3 % Normal . [facility] Comment on above: Performed By: #### C BC, CMP ####[address] Eosinophils (Bld) [#/Vol] 0.4 10*3/uL Normal 0.0-0.45 [facility] Comment on above: Performed By: #### C BC, CMP ####[address] Eosinophils/100 WBC (Bld) 6.3 % Normal . [facility] Comment on above: Performed By: #### C BC, CMP ####[address] Erythrocyte distribution width (RBC) [Ratio] 16.5 % High 12.0-14.8 [facility] Comment on above: Performed By: #### C BC, CMP ####[address] Hematocrit (Bld) [Volume fraction] 32.3 % Low 38.8-50.0 [facility] Comment on above: Performed By: #### C BC, CMP ####[address] Hemoglobin (Bld) [Mass/Vol] 10.8 g/dL Low 13.0-17.0 [facility] Comment on above: Performed By: #### C BC, CMP ####[address] Lymphocytes (Bld) [#/Vol] 1.2 10*3/uL Normal 1.00-4.8 [facility] Comment on above: Performed By: #### C BC, CMP ####[address] Lymphocytes/100 WBC (Bld) 17.5 % Normal . [facility] Comment on above: Performed By: #### C BC, CMP ####[address] MCH (RBC) [Entitic mass] 35.1 pg Normal 27.5-35.2 [facility] Comment on above: Performed By: #### C BC, CMP ####[address] MCV (RBC) [Entitic vol] 105.2 fL High 83.5-101 [facility] Comment on above: Performed By: #### C BC, CMP ####[address] Mean Corpuscular HGB Conc 33.4 g/dL Normal 32.5-35.6 [facility] Comment on above: Performed By: #### C BC, CMP ####[address] Monocytes (Bld) [#/Vol] 0.5 10*3/uL Normal 0.0-0.8 [facility] Comment on above: Performed By: #### C BC, CMP ####[address] Monocytes/100 WBC (Bld) 7.3 % Normal . [facility] Comment on above: Performed By: #### C BC, CMP ####[address] Neutrophils (Bld) [#/Vol] 4.7 10*3/uL Normal 1.8-7.7 [facility] Comment on above: Performed By: #### C BC, CMP ####[address] Neutrophils/100 WBC (Bld) 68.6 % Normal . [facility] Comment on above: Performed By: #### C BC, CMP ####[address] NRBC% 0.1 /100{WBC} Normal 0-0.5 [facility] Comment on above: Performed By: #### C BC, CMP ####[address] Platelet mean volume (Bld) [Entitic vol] 8.2 fL Normal 6.6-10.1 [facility] Comment on above: Performed By: #### C BC, CMP ####[address] Platelets (Bld) [#/Vol] 192 10*3/uL Normal 150-450 [facility] Comment on above: Performed By: #### C BC, CMP ####[address] RBC (Bld) [#/Vol] 3.07 10*6/uL Low 3.90-5.60 [facility] Comment on above: Performed By: #### C BC, CMP ####[address] WBC (Bld) [#/Vol] 6.9 10*3/uL Normal 4.1-10.5 [facility] Comment on above: Performed By: #### C AYDEE, CMP ####[address] Comprehensive Metabolic Pane mana 05-17-2024 Albumin [Mass/Vol] 3.8 g/dL Normal 3.5-5.7 [facility] Comment on above: Performed By: #### C BC, CMP ####[address] Albumin/Globulin [Mass ratio] 1.5 {ratio} Normal [facility] Comment on above: Performed By: #### C BC, CMP ####[address] ALP [Catalytic activity/Vol] 124 U/L High 34-104 [facility] Comment on above: Performed By: #### C BC, CMP ####[address] ALT [Catalytic activity/Vol] 17 U/L Normal 7-52 [facility] Comment on above: Performed By: #### C BC, CMP ####[address] Anion gap [Moles/Vol] 11.1 mmol/L Normal 6.0-15.0 Th e [facility] Comment on above: Performed By: #### C BC, CMP ####[address] AST [Catalytic activity/Vol] 15 U/L Normal 13-39 [facility] Comment on above: Performed By: #### C BC, CMP ####[address] Bilirubin [Mass/Vol] 0.4 mg/dL Normal 0.3-1.0 [facility] Comment on above: Performed By: #### C BC, CMP ####[address] Calcium [Mass/Vol] 8.9 mg/dL Normal 8.6-10.3 [facility] Comment on above: Performed By: #### C BC, CMP ####[address] Chloride [Moles/Vol] 110 mmol/L High 98-107 [facility] Comment on above: Performed By: #### C BC, CMP ####[address] CO2 [Moles/Vol] 24.4 mmol/L Normal 21.0-31.0 [facility] Comment on above: Performed By: #### C BC, CMP ####[place] [id number] [facility] Creatinine [Mass/Vol] 2.31 mg/dL High 0.70-1.30 [facility] Comment on above: Performed By: #### C BC, CMP ####[place] [id number] [facility] Creatinine Clr Calc Pharmacy 29.13 Normal [facility] Comment on above: Result Comment: PERF ORMED BY:[place] [address] [address] [place], [place] [phone] MEDICAL DIRECTORMEAGAN HARDING M.D. Performed By: #### C BC, CMP ####[address] [address] [facility] GFR/1.73 sq M.predicted MDRD (S/P/Bld) [Vol rate/Area] 28.033 mL/min/{1.73_m2} Normal [facility] Comment on above: Performed By: #### C BC, CMP ####[address] [address] [facility] Globulin (S) [Mass/Vol] 2.6 g/dL Normal T he [facility] Comment on above: Performed By: #### C BC, CMP ####[address] [address] [facility] Glucose [Mass/Vol] 76 mg/dL Normal 70-100 [facility] Comment on above: Result Comment: [facility] Glucose Reference Range is dependent on time and content of last meal. Glucose of more than 200 mg/dL in a nonstressed, ambulatory subject supports the diagnosis of Diabetes Mellitus. ADA recommended reference range Performed By: #### C BC, CMP ####[address] [address] [facility] Potassium [Moles/Vol] 4.5 mmol/L Normal 3.5-5.1 [facility] Comment on above: Performed By: #### C BC, CMP ####[address] [address] [facility] Protein [Mass/Vol] 6.4 g/dL Normal 6.4-8.9 [facility] Comment on above: Performed By: #### C BC, CMP ####[address] [address] [facility] Sodium [Moles/Vol] 141 mmol/L Normal 136-145 [facility] Comment on above: Performed By: #### C BC, CMP ####[address] [address] [facility] Urea nitrogen [Mass/Vol] 29 mg/dL High 7-25 [facility] Comment on above: Performed By: #### C BC, CMP ####[facility] [address] [place] [address] [facility] Comprehensive metabolic pane mana 05-17-2024 Albumin [Mass/Vol] 3.8 g/dL 3.5 - 5.7 g/dL [facility] Albumin/Globulin [Mass ratio] 1.5 {ratio} [facility] ALP [Catalytic activity/Vol] 124 U/L High 34 - 104 U/L [facility] ALT [Catalytic activity/Vol] 17 U/L 7 - 52 U/L [facility] Anion gap [Moles/Vol] 11.1 mmol/L 6.0 - 15.[address] [facility] AST [Catalytic activity/Vol] 15 U/L 13 - 39 U/L [facility] Bilirubin [Mass/Vol] 0.4 mg/dL 0.3 - 1 .0 mg/dL [facility] Calcium [Mass/Vol] 8.9 mg/dL 8.6 - 10. 3 mg/dL [facility] Chloride [Moles/Vol] 110 mmol/L High 98 - 10 7 mmol/L [facility] CO2 [Moles/Vol] 24.4 mmol/L 21.0 - 31.0 mmol/L [facility] Creatinine (U) [Mass/Vol] 2.31 mg/dL High 0.70 - 1.30 mg/dL [facility] CREATININE CLR CALC PHARMACY 29.13 [facility] GFR/1.73 sq M.predicted MDRD (S/P/Bld) [Vol rate/Area] 28.033 mL/min/{1.73_m2} [facility] Globulin (S) [Mass/Vol] 2.6 g/dL [facility] Glucose [Mass/Vol] 76 mg/dL 70 - 100 mg/dL [facility] Comment on above: Random Glucose Refer ence Range is dependent on time and content of last meal. Glucose of more than 200 mg/dL in a nonstressed, ambulatory subject supports the diagnosis of Diabetes Mellitus. ADA recommended reference range Interpretation and review of laboratory results Abnormal [facility] Potassium [Moles/Vol] 4.5 mmol/L 3.5 - 5.1 mmol/L [facility] Protein [Mass/Vol] 6.4 g/dL 6.4 - 8.9 g/dL [facility] Sodium [Moles/Vol] 141 mmol/L 136 - 145 mmol/L [facility] Urea nitrogen [Mass/Vol] 29 mg/dL High 7 - 25 mg/dL [facility] CBC W Auto Differential pane l (Bld)on 05-06-2024 Basophils (Bld) [#/Vol] 0.0 10*3/uL 0.0 - 0.2 10*3/uL [facility] Basophils/100 WBC Manual cnt (Syn fld) 0.5 % . [facility] Eosinophils (Bld) [#/Vol] 0.4 10*3/uL 0.0 - 0.45 10*3/uL [facility] Eosinophils/100 WBC Manual cnt (Syn fld) 6.3 % . [facility] Erythrocyte distribution width (RBC) [Ratio] 16.0 % High 12.0 - 14.8 % [facility] Hematocrit (Bld) [Volume fraction] 29.1 % Low 38.8 - 50.0 % [facility] Hemoglobin (Bld) [Mass/Vol] 9.7 g/dL Low 13.0 - 17.0 g/dL [facility] Interpretation and review of laboratory results Abnormal [facility] Lymphocytes (Bld) [#/Vol] 1.3 10*3/uL 1.00 - 4.8 10*3/uL [facility] Lymphocytes/100 WBC Manual cnt (Syn fld) 18.5 % . [facility] MCH (RBC) [Entitic mass] 35.0 pg 27.5 - 35.2 pg [facility] MCHC (RBC) [Mass/Vol] 33.4 g/dL 32.5 - 35.6 g/dL [facility] MCV (RBC) [Entitic vol] 105.0 fL High 83.5 - 101 fL [facility] Monocytes (Bld) [#/Vol] 0.5 10*3/uL 0.0 - 0.8 10*3/uL [facility] Monocytes+Macrophages/1 00 WBC Manual cnt (Syn fld) 6.6 % . [facility] Neutrophils (Bld) [#/Vol] 4.7 10*3/uL 1.8 - 7.7 10*3/uL [facility] Neutrophils/100 WBC Manual cnt (Syn fld) 68.1 % . [facility] NRBC 0.2 /100{WBC} 0 - 0.5 /100{WBC} [facility] Platelet mean volume (Bld) [Entitic vol] 8.1 fL 6.6 - 10.1 fL [facility] Platelets (Bld) [#/Vol] 185 10*3/uL 150 - 450 10*3/uL [facility] RBC LM.HPF (Urine sed) [#/Area] 2.77 /[HPF] Low 3.90 - 5.60 [facility] WBC (Bld) [#/Vol] 6.9 10*3/uL 4.1 - 10.5 10*3/uL [facility] WBC LM.HPF (Urine sed) [#/Area] 6.9 10*3/uL 4.1 - 10.5 10*3/uL [facility] Complete Blood Count Auto Di ffon 05-06-2024 Basophils (Bld) [#/Vol] 0.0 10*3/uL Normal 0.0-0.2 [facility] Comment on above: Result Comment: PERF ORMED BY:[address] [place], [place] [phone] MEDICAL DIRECTORMEAGAN HARDING M.D. Performed By: #### C BC ####[address] Basophils/100 WBC (Bld) 0.5 % Normal . [facility] Comment on above: Performed By: #### C BC ####[address] Eosinophils (Bld) [#/Vol] 0.4 10*3/uL Normal 0.0-0.45 [facility] Comment on above: Performed By: #### C BC ####[address] Eosinophils/100 WBC (Bld) 6.3 % Normal . [facility] Comment on above: Performed By: #### C BC ####[address] Erythrocyte distribution width (RBC) [Ratio] 16.0 % High 12.0-14.8 [facility] Comment on above: Performed By: #### C BC ####[address] Hematocrit (Bld) [Volume fraction] 29.1 % Low 38.8-50.0 [facility] Comment on above: Performed By: #### C BC ####[address] Hemoglobin (Bld) [Mass/Vol] 9.7 g/dL Low 13.0-17.0 [facility] Comment on above: Performed By: #### C BC ####[address] Lymphocytes (Bld) [#/Vol] 1.3 10*3/uL Normal 1.00-4.8 [facility] Comment on above: Performed By: #### C BC ####[address] Lymphocytes/100 WBC (Bld) 18.5 % Normal . [facility] Comment on above: Performed By: #### C BC ####[address] MCH (RBC) [Entitic mass] 35.0 pg Normal 27.5-35.2 [facility] Comment on above: Performed By: #### C BC ####[address] MCV (RBC) [Entitic vol] 105.0 fL High 83.5-101 T he [facility] Comment on above: Performed By: #### C BC ####[address] Mean Corpuscular HGB Conc 33.4 g/dL Normal 32.5-35.6 [facility] Comment on above: Performed By: #### C BC ####[address] Monocytes (Bld) [#/Vol] 0.5 10*3/uL Normal 0.0-0.8 [facility] Comment on above: Performed By: #### C BC ####[place] [id number] [facility] Monocytes/100 WBC (Bld) 6.6 % Normal . T he [facility] Comment on above: Performed By: #### C BC ####[place] [id number] [facility] Neutrophils (Bld) [#/Vol] 4.7 10*3/uL Normal 1.8-7.7 [facility] Comment on above: Performed By: #### C BC ####[place] [id number] [facility] Neutrophils/100 WBC (Bld) 68.1 % Normal . [facility] Comment on above: Performed By: #### C BC ####[address] NRBC% 0.2 /100{WBC} Normal 0-0.5 [facility] Comment on above: Performed By: #### C BC ####[place] [id number] [facility] Platelet mean volume (Bld) [Entitic vol] 8.1 fL Normal 6.6-10.1 [facility] Comment on above: Performed By: #### C BC ####[place] [id number] [facility] Platelets (Bld) [#/Vol] 185 10*3/uL Normal 150-450 [facility] Comment on above: Performed By: #### C BC ####[place] [id number] [facility] RBC (Bld) [#/Vol] 2.77 10*6/uL Low 3.90-5.60 [facility] Comment on above: Performed By: #### C BC ####[place] [id number] [facility] WBC (Bld) [#/Vol] 6.9 10*3/uL Normal 4.1-10.5 [facility] Comment on above: Performed By: #### C BC ####[address] [address] [facility] Comprehensive Metabolic Pane mana 05-06-2024 Albumin [Mass/Vol] 3.9 g/dL Normal 3.5-5.7 [facility] Comment on above: Performed By: #### C MP ####[address] [address] [facility] Albumin/Globulin [Mass ratio] 1.7 {ratio} Normal [facility] Comment on above: Performed By: #### C MP ####[address] [address] [facility] ALP [Catalytic activity/Vol] 125 U/L High 34-104 [facility] Comment on above: Performed By: #### C MP ####[address] [address] [facility] ALT [Catalytic activity/Vol] 19 U/L Normal 7-52 [facility] Comment on above: Performed By: #### C MP ####[place] [id number] [facility] Anion gap [Moles/Vol] 9.3 mmol/L Normal 6.0-15.0 [facility] Comment on above: Performed By: #### C MP ####[place] [id number] [facility] AST [Catalytic activity/Vol] 16 U/L Normal 13-39 [facility] Comment on above: Performed By: #### C MP ####[place] [id number] [facility] Bilirubin [Mass/Vol] 0.3 mg/dL Normal 0.3-1.0 [facility] Comment on above: Performed By: #### C MP ####[place] [id number] [facility] Calcium [Mass/Vol] 8.9 mg/dL Normal 8.6-10.3 [facility] Comment on above: Performed By: #### C MP ####[address] [place] [address] [place] Chloride [Moles/Vol] 109 mmol/L High 98-107 [facility] Comment on above: Performed By: #### C MP ####[address] CO2 [Moles/Vol] 24.1 mmol/L Normal 21.0-31.0 [facility] Comment on above: Performed By: #### C MP ####[address] Creatinine [Mass/Vol] 2.24 mg/dL High 0.70-1.30 [facility] Comment on above: Performed By: #### C MP ####[address] Creatinine Clr Calc Pharmacy 30.04 Normal [facility] Comment on above: Result Comment: PERF ORMED BY:[address] [place], [place] [phone] MEDICAL ANYA HARDING M.D. Performed By: #### C MP ####[address] GFR/1.73 sq M.predicted MDRD (S/P/Bld) [Vol rate/Area] 29.088 mL/min/{1.73_m2} Normal [facility] Comment on above: Performed By: #### C MP ####[address] Globulin (S) [Mass/Vol] 2.3 g/dL Normal T he [facility] Comment on above: Performed By: #### C MP ####[address] Glucose [Mass/Vol] 143 mg/dL High 70-100 [facility] Comment on above: Result Comment: [place] Glucose Reference Range is dependent on time and content of last meal. Glucose of more than 200 mg/dL in a nonstressed, ambulatory subject supports the diagnosis of Diabetes Mellitus. ADA recommended reference range Performed By: #### C MP ####[facility] [place] [id number] [facility] Potassium [Moles/Vol] 4.4 mmol/L Normal 3.5-5.1 [facility] Comment on above: Performed By: #### C MP ####[place] [id number] [address] Protein [Mass/Vol] 6.2 g/dL Low 6.4-8.9 [facility] Comment on above: Performed By: #### C MP ####[place] [id number] [facility] Sodium [Moles/Vol] 138 mmol/L Normal 136-145 [facility] Comment on above: Performed By: #### C MP ####[place] [id number] [place] [id number] [facility] Urea nitrogen [Mass/Vol] 24 mg/dL Normal 7-25 [facility] Comment on above: Performed By: #### C MP ####[place] [id number] [facility] Comprehensive metabolic pane mana 05-06-2024 Albumin [Mass/Vol] 3.9 g/dL 3.5 - 5.7 g/dL [facility] Albumin/Globulin [Mass ratio] 1.7 {ratio} [facility] ALP [Catalytic activity/Vol] 125 U/L High 34 - 104 U/L [facility] ALT [Catalytic activity/Vol] 19 U/L 7 - 52 U/L [facility] Anion gap [Moles/Vol] 9.3 mmol/L 6.0 - 15.0 [facility] AST [Catalytic activity/Vol] 16 U/L 13 - 39 U/L [facility] Bilirubin [Mass/Vol] 0.3 mg/dL 0.3 - 1 .0 mg/dL [facility] Calcium [Mass/Vol] 8.9 mg/dL 8.6 - 10. 3 mg/dL [facility] Chloride [Moles/Vol] 109 mmol/L High 98 - 10 7 mmol/L [facility] CO2 [Moles/Vol] 24.1 mmol/L 21.0 - 31.0 mmol/L [facility] Creatinine (U) [Mass/Vol] 2.24 mg/dL High 0.70 - 1.30 mg/dL [facility] CREATININE CLR CALC PHARMACY 30.04 [facility] GFR/1.73 sq M.predicted MDRD (S/P/Bld) [Vol rate/Area] 29.088 mL/min/{1.73_m2} [facility] Globulin (S) [Mass/Vol] 2.3 g/dL N [facility] Glucose [Mass/Vol] 143 mg/dL High 70 - 100 mg/dL [facility] Comment on above: Random Glucose Refer ence Range is dependent on time and content of last meal. Glucose of more than 200 mg/dL in a nonstressed, ambulatory subject supports the diagnosis of Diabetes Mellitus. ADA recommended reference range Interpretation and review of laboratory results Abnormal [facility] Potassium [Moles/Vol] 4.4 mmol/L 3.5 - 5.1 mmol/L [facility] Protein [Mass/Vol] 6.2 g/dL Low 6.4 - 8.9 g/dL [facility] Sodium [Moles/Vol] 138 mmol/L 136 - 145 mmol/L [facility] Urea nitrogen [Mass/Vol] 24 mg/dL 7 - 25 mg/dL [facility] Ambulatory Visit Summaryon 0 04-26-2024 Ambulatory Visit [...] APRN, Makayla Soriano Where: [facility] [address] [place] [address]- Medications What How Much When Instructions Unchanged [...] for choosing us for your care. Normal [facility] CBC W Auto Differential pane l (Bld)on 04-22-2024 Basophils (Bld) [#/Vol] 0.0 10*3/uL 0.0 - 0.2 10*3/uL [facility] Basophils/100 WBC Manual cnt (Syn fld) 0.2 % . [facility] Eosinophils (Bld) [#/Vol] 0.3 10*3/uL 0.0 - 0.45 10*3/uL [facility] Eosinophils/100 WBC Manual cnt (Syn fld) 5.2 % . [facility] Erythrocyte distribution width (RBC) [Ratio] 16.2 % High 12.0 - 14.8 % [facility] Hematocrit (Bld) [Volume fraction] 30.2 % Low 38.8 - 50.0 % [facility] Hemoglobin (Bld) [Mass/Vol] 10.1 g/dL Low 13.0 - 17.0 g/dL [facility] Interpretation and review of laboratory results Abnormal [facility] Lymphocytes (Bld) [#/Vol] 0.5 10*3/uL Low 1.00 - 4.8 10*3/uL [facility] Lymphocytes/100 WBC Manual cnt (Syn fld) 8.1 % . [facility] MCH (RBC) [Entitic mass] 35.5 pg High 27.5 - 35.2 pg [facility] MCHC (RBC) [Mass/Vol] 33.3 g/dL 32.5 - 35.6 g/dL [facility] MCV (RBC) [Entitic vol] 106.8 fL High 83.5 - 101 fL [facility] Monocytes (Bld) [#/Vol] 0.5 10*3/uL 0.0 - 0.8 10*3/uL [facility] Monocytes+Macrophages/1 00 WBC Manual cnt (Syn fld) 7.3 % . [facility] Neutrophils (Bld) [#/Vol] 4.9 10*3/uL 1.8 - 7.7 10*3/uL [facility] Neutrophils/100 WBC Manual cnt (Syn fld) 79.2 % . [facility] NRBC 0.0 /100{WBC} 0 - 0.5 /100{WBC} [facility] Platelet mean volume (Bld) [Entitic vol] 8.3 fL 6.6 - 10.1 fL [facility] Platelets (Bld) [#/Vol] 177 10*3/uL 150 - 450 10*3/uL [facility] RBC LM.HPF (Urine sed) [#/Area] 2.83 /[HPF] Low 3.90 - 5.60 [facility] WBC (Bld) [#/Vol] 6.3 10*3/uL 4.1 - 10.5 10*3/uL [facility] WBC LM.HPF (Urine sed) [#/Area] 6.3 10*3/uL 4.1 - 10.5 10*3/uL [facility] Complete Blood Count Auto Di ffon 04-22-2024 Basophils (Bld) [#/Vol] 0.0 10*3/uL Normal 0.0-0.2 [facility] Comment on above: Result Comment: PERF ORMED BY:[address] [place], [place] [phone] MEDICAL DIRECTORMEAGAN HARDING M.D. Performed By: #### C MP, CBC ####[place] [id number] [place] [address] [facility] Basophils/100 WBC (Bld) 0.2 % Normal . T he [facility] Comment on above: Performed By: #### C MP, CBC ####[place] [id number] [address] Eosinophils (Bld) [#/Vol] 0.3 10*3/uL Normal 0.0-0.45 [facility] Comment on above: Performed By: #### C MP, CBC ####[address] Eosinophils/100 WBC (Bld) 5.2 % Normal . [facility] Comment on above: Performed By: #### C MP, CBC ####[address] Erythrocyte distribution width (RBC) [Ratio] 16.2 % High 12.0-14.8 [facility] Comment on above: Performed By: #### C MP, CBC ####[address] Hematocrit (Bld) [Volume fraction] 30.2 % Low 38.8-50.0 [facility] Comment on above: Performed By: #### C MP, CBC ####[address] Hemoglobin (Bld) [Mass/Vol] 10.1 g/dL Low 13.0-17.0 [facility] Comment on above: Performed By: #### C MP, CBC ####[address] Lymphocytes (Bld) [#/Vol] 0.5 10*3/uL Low 1.00-4.8 [facility] Comment on above: Performed By: #### C MP, CBC ####[address] Lymphocytes/100 WBC (Bld) 8.1 % Normal . [facility] Comment on above: Performed By: #### C MP, CBC ####[address] MCH (RBC) [Entitic mass] 35.5 pg High 27.5-35.2 [facility] Comment on above: Performed By: #### C MP, CBC ####[address] [place] [address] [place] MCV (RBC) [Entitic vol] 106.8 fL High 83.5-101 [facility] Comment on above: Performed By: #### C MP, CBC ####[address] Mean Corpuscular HGB Conc 33.3 g/dL Normal 32.5-35.6 [facility] Comment on above: Performed By: #### C MP, CBC ####[address] Monocytes (Bld) [#/Vol] 0.5 10*3/uL Normal 0.0-0.8 [facility] Comment on above: Performed By: #### C MP, CBC ####[address] Monocytes/100 WBC (Bld) 7.3 % Normal . [facility] Comment on above: Performed By: #### C MP, CBC ####[address] Neutrophils (Bld) [#/Vol] 4.9 10*3/uL Normal 1.8-7.7 [facility] Comment on above: Performed By: #### C MP, CBC ####[address] Neutrophils/100 WBC (Bld) 79.2 % Normal . [facility] Comment on above: Performed By: #### C MP, CBC ####[address] NRBC% 0.0 /100{WBC} Normal 0-0.5 [facility] Comment on above: Performed By: #### C MP, CBC ####[address] Platelet mean volume (Bld) [Entitic vol] 8.3 fL Normal 6.6-10.1 [facility] Comment on above: Performed By: #### C MP, CBC ####[address] [place] [address] [place] Platelets (Bld) [#/Vol] 177 10*3/uL Normal 150-450 [facility] Comment on above: Performed By: #### C MP, CBC ####[address] RBC (Bld) [#/Vol] 2.83 10*6/uL Low 3.90-5.60 [facility] Comment on above: Performed By: #### C MP, CBC ####[address] WBC (Bld) [#/Vol] 6.3 10*3/uL Normal 4.1-10.5 [facility] Comment on above: Performed By: #### C MP, CBC ####[address] Comprehensive Metabolic Pane mana 04-22-2024 Albumin [Mass/Vol] 3.8 g/dL Normal 3.5-5.7 [facility] Comment on above: Performed By: #### C MP, CBC ####[address] Albumin/Globulin [Mass ratio] 1.5 {ratio} Normal [facility] Comment on above: Performed By: #### C MP, CBC ####[address] ALP [Catalytic activity/Vol] 109 U/L High 34-104 [facility] Comment on above: Performed By: #### C MP, CBC ####[address] ALT [Catalytic activity/Vol] 15 U/L Normal 7-52 [facility] Comment on above: Performed By: #### C MP, CBC ####[address] Anion gap [Moles/Vol] 10.5 mmol/L Normal 6.0-15.0 e [facility] Comment on above: Performed By: #### C MP, CBC ####[place] [id number] [facility] AST [Catalytic activity/Vol] 18 U/L Normal 13-39 [facility] Comment on above: Performed By: #### C MP, CBC ####[address] Bilirubin [Mass/Vol] 0.5 mg/dL Normal 0.3-1.0 [facility] Comment on above: Performed By: #### C MP, CBC ####[address] Calcium [Mass/Vol] 8.9 mg/dL Normal 8.6-10.3 [facility] Comment on above: Performed By: #### C MP, CBC ####[address] Chloride [Moles/Vol] 107 mmol/L Normal 98-107 [facility] Comment on above: Performed By: #### C MP, CBC ####[address] CO2 [Moles/Vol] 23.4 mmol/L Normal 21.0-31.0 [facility] Comment on above: Performed By: #### C MP, CBC ####[place] [id number] [facility] Creatinine [Mass/Vol] 2.49 mg/dL High 0.70-1.30 [facility] Comment on above: Performed By: #### C MP, CBC ####[address] Creatinine Clr Calc Pharmacy 27.03 Normal [facility] Comment on above: Result Comment: PERF ORMED BY:[address] [place], [place] [id number] MEDICAL DIRECTORMEAGAN HARDING M.D. Performed By: #### C MP, CBC ####[place] [id number] [facility] GFR/1.73 sq M.predicted MDRD (S/P/Bld) [Vol rate/Area] 25.619 mL/min/{1.73_m2} Normal [facility] Comment on above: Performed By: #### C MP, CBC ####[place] [id number] [facility] Globulin (S) [Mass/Vol] 2.5 g/dL Normal T he [facility] Comment on above: Performed By: #### C MP, CBC ####[place] [id number] [facility] Glucose [Mass/Vol] 241 mg/dL High 70-100 [facility] Comment on above: Result Comment: [facility] Glucose Reference Range is dependent on time and content of last meal. Glucose of more than 200 mg/dL in a nonstressed, ambulatory subject supports the diagnosis of Diabetes Mellitus. ADA recommended reference range Performed By: #### C MP, CBC ####[place] [id number] [facility] Potassium [Moles/Vol] 4.9 mmol/L Normal 3.5-5.1 [facility] Comment on above: Performed By: #### C MP, CBC ####[place] [id number] [facility] Protein [Mass/Vol] 6.3 g/dL Low 6.4-8.9 [facility] Comment on above: Performed By: #### C MP, CBC ####[place] [id number] [facility] Sodium [Moles/Vol] 136 mmol/L Normal 136-145 [facility] Comment on above: Performed By: #### C MP, CBC ####[address] [address] [facility] Urea nitrogen [Mass/Vol] 30 mg/dL High 7-25 [facility] Comment on above: Performed By: #### C MP, CBC ####[address] [address] [facility] Comprehensive metabolic pane mana 04-22-2024 Albumin [Mass/Vol] 3.8 g/dL 3.5 - 5.7 g/dL [facility] Albumin/Globulin [Mass ratio] 1.5 {ratio} [facility] ALP [Catalytic activity/Vol] 109 U/L High 34 - 104 U/L [facility] ALT [Catalytic activity/Vol] 15 U/L 7 - 52 U/L [facility] Anion gap [Moles/Vol] 10.5 mmol/L 6.0 - 15.[address] [facility] AST [Catalytic activity/Vol] 18 U/L 13 - 39 U/L [facility] Bilirubin [Mass/Vol] 0.5 mg/dL 0.3 - 1 .0 mg/dL [facility] Calcium [Mass/Vol] 8.9 mg/dL 8.6 - 10. 3 mg/dL [facility] Chloride [Moles/Vol] 107 mmol/L 98 - 10 7 mmol/L [facility] CO2 [Moles/Vol] 23.4 mmol/L 21.0 - 31.0 mmol/L [facility] Creatinine (U) [Mass/Vol] 2.49 mg/dL High 0.70 - 1.30 mg/dL [facility] CREATININE CLR CALC PHARMACY 27.03 [facility] GFR/1.73 sq M.predicted MDRD (S/P/Bld) [Vol rate/Area] 25.619 mL/min/{1.73_m2} [facility] Globulin (S) [Mass/Vol] 2.5 g/dL N [facility] Glucose [Mass/Vol] 241 mg/dL High 70 - 100 mg/dL [facility] Comment on above: Random Glucose Refer ence Range is dependent on time and content of last meal. Glucose of more than 200 mg/dL in a nonstressed, ambulatory subject supports the diagnosis of Diabetes Mellitus. ADA recommended reference range Interpretation and review of laboratory results Abnormal [facility] Potassium [Moles/Vol] 4.9 mmol/L 3.5 - 5.1 mmol/L [facility] Protein [Mass/Vol] 6.3 g/dL Low 6.4 - 8.9 g/dL [facility] Sodium [Moles/Vol] 136 mmol/L 136 - 145 mmol/L [facility] Urea nitrogen [Mass/Vol] 30 mg/dL High 7 - 25 mg/dL [facility] C Urineon 04-21-2024 Bacteria identified Cx Nom (U) Microbiology PROCEDURE: Urine Culture [R1] SOURCE: U Cath BODY SITE: COLLECTED DATE/TIME: 04/19/2024 15:43 EDT RECEIVED DATE/TIME: 04/19/2024 18:06 EDT START DATE/TIME: 04/19/2024 18:06 EDT FREE TEXT SOURCE: cath Orzech WAITER/WAITRESS CAPTAIN, RN INTERNSHIP-C, Orzech WAITER/WAITRESS CAPTAIN, RN INTERNSHIP-C, Makayla X Makayla X FINAL REPORTS Final [...] Locations R1: This test was performed at: [facility], [address] [place] [address], [id number] , [place], Normal [facility] Comment on above: Performed By: #### [id number] #### [facility] [address] [place] [id number] Ambulatory Visit Summaryon 0 04-19-2024 Ambulatory Visit Summary Ambulatory Visit Summary PATSY CUNNINGHAM Barron :1945 Visit Date:04/19/2024 Ambulatory Visit Instructions Your Care Team Attending Physician - CARLEY aDmian APRN, Makayla Soriano Primary Care Physician - [...] choosing us for your care. Normal [facility] CBC W Auto Differential pane l (Bld)on 04-08-2024 Basophils (Bld) [#/Vol] 0.0 10*3/uL 0.0 - 0.2 10*3/uL [facility] Basophils/100 WBC Manual cnt (Syn fld) 0.7 % . [facility] Eosinophils (Bld) [#/Vol] 0.5 10*3/uL High 0.0 - 0.45 10*3/uL [facility] Eosinophils/100 WBC Manual cnt (Syn fld) 7.7 % . [facility] Erythrocyte distribution width (RBC) [Ratio] 16.1 % High 12.0 - 14.8 % [facility] Hematocrit (Bld) [Volume fraction] 29.2 % Low 38.8 - 50.0 % [facility] Hemoglobin (Bld) [Mass/Vol] 9.9 g/dL Low 13.0 - 17.0 g/dL [facility] Interpretation and review of laboratory results Abnormal [facility] Lymphocytes (Bld) [#/Vol] 0.9 10*3/uL Low 1.00 - 4.8 10*3/uL [facility] Lymphocytes/100 WBC Manual cnt (Syn fld) 13.5 % . [facility] MCH (RBC) [Entitic mass] 36.5 pg High 27.5 - 35.2 pg [facility] MCHC (RBC) [Mass/Vol] 33.9 g/dL 32.5 - 35.6 g/dL [facility] MCV (RBC) [Entitic vol] 107.5 fL High 83.5 - 101 fL [facility] Monocytes (Bld) [#/Vol] 0.5 10*3/uL 0.0 - 0.8 10*3/uL [facility] Monocytes+Macrophages/1 00 WBC Manual cnt (Syn fld) 8.3 % . [facility] Neutrophils (Bld) [#/Vol] 4.6 10*3/uL 1.8 - 7.7 10*3/uL [facility] Neutrophils/100 WBC Manual cnt (Syn fld) 69.8 % . [facility] NRBC 0.1 /100{WBC} 0 - 0.5 /100{WBC} [facility] Platelet mean volume (Bld) [Entitic vol] 8.4 fL 6.6 - 10.1 fL [facility] Platelets (Bld) [#/Vol] 196 10*3/uL 150 - 450 10*3/uL [facility] RBC LM.HPF (Urine sed) [#/Area] 2.72 /[HPF] Low 3.90 - 5.60 [facility] WBC (Bld) [#/Vol] 6.5 10*3/uL 4.1 - 10.5 10*3/uL [facility] WBC LM.HPF (Urine sed) [#/Area] 6.5 10*3/uL 4.1 - 10.5 10*3/uL [facility] Comprehensive metabolic pane mana 04-08-2024 Albumin [Mass/Vol] 3.9 g/dL 3.5 - 5.7 g/dL [facility] Albumin/Globulin [Mass ratio] 1.5 {ratio} [facility] ALP [Catalytic activity/Vol] 94 U/L 34 - 104 U/L [facility] ALT [Catalytic activity/Vol] 15 U/L 7 - 52 U/L [facility] Anion gap [Moles/Vol] 11.0 mmol/L 6.0 - 15.[address] [facility] AST [Catalytic activity/Vol] 18 U/L 13 - 39 U/L [facility] Bilirubin [Mass/Vol] 0.4 mg/dL 0.3 - 1 .0 mg/dL [facility] Calcium [Mass/Vol] 8.9 mg/dL 8.6 - 10. 3 mg/dL [facility] Chloride [Moles/Vol] 109 mmol/L High 98 - 10 7 mmol/L [facility] CO2 [Moles/Vol] 22.7 mmol/L 21.0 - 31.0 mmol/L [facility] Creatinine (U) [Mass/Vol] 2.71 mg/dL High 0.70 - 1.30 mg/dL [facility] CREATININE CLR CALC PHARMACY 24.83 [facility] GFR/1.73 sq M.predicted MDRD (S/P/Bld) [Vol rate/Area] 23.144 mL/min/{1.73_m2} [facility] Globulin (S) [Mass/Vol] 2.6 g/dL N [facility] Glucose [Mass/Vol] 103 mg/dL High 70 - 100 mg/dL [facility] Comment on above: Random Glucose Refer ence Range is dependent on time and content of last meal. Glucose of more than 200 mg/dL in a nonstressed, ambulatory subject supports the diagnosis of Diabetes Mellitus. ADA recommended reference range Interpretation and review of laboratory results Abnormal [facility] Potassium [Moles/Vol] 4.7 mmol/L 3.5 - 5.1 mmol/L [facility] Protein [Mass/Vol] 6.5 g/dL 6.4 - 8.9 g/dL [facility] Sodium [Moles/Vol] 138 mmol/L 136 - 145 mmol/L [facility] Urea nitrogen [Mass/Vol] 31 mg/dL High 7 - 25 mg/dL [facility] C Urineon 03-18-2024 Bacteria identified Cx Nom (U) Microbiology PROCEDURE: Urine Culture [R1] SOURCE: U Suprapubic BODY SITE: COLLECTED DATE/TIME: 03/15/2024 14:58 EDT RECEIVED DATE/TIME: 03/15/2024 18:05 EDT START DATE/TIME: 03/15/2024 18:05 EDT FREE TEXT SOURCE: suprapubic per chart TESS Damian APRNP-C, Nati MEJIA, RN INTERNSHIP-C, Makayla X Makayla X FINAL REPORTS Final [...] This test was performed at: [facility], [address] [place] [address], [facility] , , [facility] Comment on above: Performed By: #### 2 [id number] #### [facility] [address] [place] [id number] Alanine aminotransferase [En zymatic activity/volume] in Serum or PlasmaOrdered By: Brook Huddleston on 02-29-2024 ALT [Catalytic activity/Vol] 13 U/L [facility] Albumin [Mass/volume] in Ser um or Plasma by Bromocresol green (BCG) dye binding methoOrdered By: Price Crain on 02-29-2024 Albumin BCG dye [Mass/Vol] 3.8 g/dL 3.5-5.7 [facility] Albumin [Mass/volume] in Ser um or Plasma by Bromocresol green (BCG) dye binding methoOrdered By: Brook Huddleston on 02-29-2024 Albumin BCG dye [Mass/Vol] 3.9 g/dL 3.5-5.7 [facility] Alkaline phosphatase [Enzyma tic activity/volume] in Serum or PlasmaOrdered By: Brook Huddleston on 02-29-2024 ALP [Catalytic activity/Vol] 90 U/L 34-104 [facility] Aspartate aminotransferase [ Enzymatic activity/volume] in Serum or PlasmaOrdered By: Brook Huddleston on 02-29-2024 AST [Catalytic activity/Vol] 16 U/L 13-39 [facility] Basophils Auto (Bld) [#/Vol] Ordered By: Brook Huddleston on 02-29-2024 Basophils (Bld) [#/Vol] 0.0 10*3/uL 0.0-0.2 [facility] Basophils/100 WBC Auto (Bld) Ordered By: Brook Huddleston on 02-29-2024 Basophils/100 WBC (Bld) 0.4 % . [facility] Bilirubin.total [Mass/volume ] in Serum or PlasmaOrdered By: Brook Huddleston on 02-29-2024 Bilirubin [Mass/Vol] 0.5 mg/dL 0.3-1.0 [facility] Calcium [Mass/volume] in Ser um or PlasmaOrdered By: Price Crain on 02-29-2024 Calcium [Mass/Vol] 9.1 mg/dL 8.6-10.3 [facility] Calcium [Mass/volume] in Ser um or PlasmaOrdered By: Brook Huddleston on 02-29-2024 Calcium [Mass/Vol] 9.5 mg/dL 8.6-10.3 [facility] Carbon dioxide, total [Moles /volume] in Serum or PlasmaOrdered By: Price Crain on 02-29-2024 CO2 [Moles/Vol] 25.1 mmol/L 21.0-31.0 [facility] Carbon dioxide, total [Moles /volume] in Serum or PlasmaOrdered By: Brook Huddleston on 02-29-2024 CO2 [Moles/Vol] 26.4 mmol/L 21.0-31.0 [facility] Chloride [Moles/volume] in S valeria or PlasmaOrdered By: Price Crain on 02-29-2024 Chloride [Moles/Vol] 108 mmol/L High 98-107 [facility] Chloride [Moles/volume] in S valeria or PlasmaOrdered By: Brook Huddleston on 02-29-2024 Chloride [Moles/Vol] 108 mmol/L High 98-107 [facility] Creatinine [Mass/volume] in Serum or PlasmaOrdered By: Price Crain on 02-29-2024 Creatinine [Mass/Vol] 2.29 mg/dL High 0.70-1.30 [facility] Creatinine [Mass/volume] in Serum or PlasmaOrdered By: Brook Huddleston on 02-29-2024 Creatinine [Mass/Vol] 2.28 mg/dL High 0.70-1.30 [facility] Creatinine [Mass/volume] in UrineOrdered By: Price Crain on 02-29-2024 Creatinine (U) [Mass/Vol] 120.00 mg/dL [facility] Comment on above: No reference range e stablished Eosinophils Auto (Bld) [#/Vo l]Ordered By: Brook Huddleston on 02-29-2024 Eosinophils (Bld) [#/Vol] 0.5 10*3/uL High 0.0-0.45 [facility] Eosinophils/100 WBC Auto (Bl d)Ordered By: Brook Huddleston on 02-29-2024 Eosinophils/100 WBC (Bld) 7.3 % . [facility] Erythrocyte distribution wid th Auto (RBC) [Ratio]Ordered By: Brook Huddleston on 02-29-2024 Erythrocyte distribution width (RBC) [Ratio] 16.5 % High 12.0-14.8 [facility] Globulin Calc (S) [Mass/Vol] Ordered By: Brook Huddleston on 02-29-2024 Globulin (S) [Mass/Vol] 2.5 g/dL [facility] Glucose [Mass/volume] in Ser um or PlasmaOrdered By: Price Crain on 02-29-2024 Glucose [Mass/Vol] 92 mg/dL 70-100 [facility] Comment on above: ADA recommended refe rence rangeRandom Glucose Reference Range is dependent on time and content of last meal. Glucose of more than 200 mg/dL in a nonstressed, ambulatory subject supports the diagnosis of Diabetes Mellitus. Glucose [Mass/volume] in Ser um or PlasmaOrdered By: Brook Huddleston on 02-29-2024 Glucose [Mass/Vol] 95 mg/dL 70-100 [facility] Comment on above: ADA recommended refe rence rangeRandom Glucose Reference Range is dependent on time and content of last meal. Glucose of more than 200 mg/dL in a nonstressed, ambulatory subject supports the diagnosis of Diabetes Mellitus. Hematocrit Auto (Bld) [Volum e fraction]Ordered By: Brook Huddleston on 02-29-2024 Hematocrit (Bld) [Volume fraction] 28.0 % Low 38.8-50.0 [facility] Hemoglobin [Mass/volume] in BloodOrdered By: Brook Huddleston on 02-29-2024 Hemoglobin (Bld) [Mass/Vol] 9.5 g/dL Low 13.0-17.0 [facility] Leukocytes [#/volume] correc lizbet for nucleated erythrocytes in Blood by Automated counOrdered By: Brook Huddleston on 02-29-2024 WBC corrected for nucl RBC Auto (Bld) [#/Vol] 7.2 10*3/uL 4.1-10.5 [facility] Lymphocytes Auto (Bld) [#/Vo l]Ordered By: Brook Huddleston on 02-29-2024 Lymphocytes (Bld) [#/Vol] 1.3 10*3/uL 1.00-4.8 [facility] Lymphocytes/100 WBC Auto (Bl d)Ordered By: Brook Huddleston on 02-29-2024 Lymphocytes/100 WBC (Bld) 18.2 % . [facility] MCH Auto (RBC) [Entitic mass ]Ordered By: Brook Huddleston on 02-29-2024 MCH (RBC) [Entitic mass] 36.4 pg High 27.5-35.2 [facility] MCHC Auto (RBC) [Mass/Vol]Or dered By: Brook Huddleston on 02-29-2024 MCHC (RBC) [Mass/Vol] 34.1 g/dL 32.5-35.6 [facility] MCV Auto (RBC) [Entitic vol] Ordered By: Brook Huddleston on 02-29-2024 MCV (RBC) [Entitic vol] 106.8 fL High 83.5-101 F [facility] Magnesium [Mass/volume] in S valeria or PlasmaOrdered By: Price Crain on 02-29-2024 Magnesium [Mass/Vol] 2.0 mg/dL 1.9-2.7 [facility] Microalbumin [Mass/volume] i n UrineOrdered By: Price Crain on 02-29-2024 Albumin DL <= 20 mg/L (U) [Mass/Vol] mg/dL High 0.0-1.8 [facility] Monocytes Auto (Bld) [#/Vol] Ordered By: Brook Huddleston on 02-29-2024 Monocytes (Bld) [#/Vol] 0.5 10*3/uL 0.0-0.8 [facility] Monocytes/100 WBC Auto (Bld) Ordered By: Brook Huddleston on 02-29-2024 Monocytes/100 WBC (Bld) 7.2 % . [facility] Neutrophils Auto (Bld) [#/Vo l]Ordered By: Brook Huddleston on 02-29-2024 Neutrophils (Bld) [#/Vol] 4.8 10*3/uL 1.8-7.7 [facility] Neutrophils/100 WBC Auto (Bl d)Ordered By: Brook Huddleston on 02-29-2024 Neutrophils/100 WBC (Bld) 66.9 % . [facility] No Panel InformationOrdered By: Price Crain on 02-29-2024 Estimated GFR (CKD-EPI) 28.327 mL/Min [facility] Creatinine Clearance (Chem N/A [facility] No Panel InformationOrdered By: Brook Huddleston on 02-29-2024 Estimated GFR (CKD-EPI) 28.476 mL/Min [facility] Creatinine Clearance (Chem 29.52 [facility] Nucleated erythrocytes [Pres ence] in Blood by Automated countOrdered By: Brook Huddleston on 02-29-2024 Nucleated RBC Auto Ql (Bld) 0.0 /100{WBC} 0-0.5 [facility] Phosphate [Mass/volume] in S valeria or PlasmaOrdered By: Price Crain on 02-29-2024 Phosphate [Mass/Vol] 3.2 mg/dL 2.5-4.5 [facility] Platelet mean volume Auto (B ld) [Entitic vol]Ordered By: Brook Huddleston on 02-29-2024 Platelet mean volume (Bld) [Entitic vol] 7.7 fL 6.6-10.1 [facility] Platelets Auto (Bld) [#/Vol] Ordered By: Brook Huddleston on 02-29-2024 Platelets (Bld) [#/Vol] 171 10*3/uL 150-450 [facility] Potassium [Moles/volume] in Serum or PlasmaOrdered By: Price Crain on 02-29-2024 Potassium [Moles/Vol] 4.7 mmol/L 3.5-5.1 [facility] Potassium [Moles/volume] in Serum or PlasmaOrdered By: Brook Huddleston on 02-29-2024 Potassium [Moles/Vol] 4.6 mmol/L 3.5-5.1 [facility] Prostate specific Ag [Mass/v olume] in Serum or PlasmaOrdered By: Helen Heath on 02-29-2024 Prostate specific Ag [Mass/Vol] 0.840 ng/mL 0.000-4.00 0 [facility] Comment on above: Serial tumor marker results determined by assays using different manufacturers or methods may not be comparable.[facility] resourcing advisor and method:[employer] CompanyEL DXI, CHEMILUMINESCENT IMMUNOASSAY. Protein [Mass/volume] in Ser um or PlasmaOrdered By: Brook Huddleston on 02-29-2024 Protein [Mass/Vol] 6.4 g/dL 6.4-8.9 [facility] Protein [Mass/volume] in Uri neOrdered By: Price Crain on 02-29-2024 Protein (U) [Mass/Vol] 148 mg/dL High 0-9 [facility] RBC Auto (Bld) [#/Vol]Ordere d By: Brook Huddleston on 02-29-2024 RBC (Bld) [#/Vol] 2.62 10*6/uL Low 3.90-5.60 [facility] Serum or plasma albumin/glob ulin mass ratioOrdered By: Brook Huddleston on 02-29-2024 Albumin/Globulin [Mass ratio] 1.6 {ratio} [facility] Serum or plasma anion gap de terminationOrdered By: Price Crain on 02-29-2024 Anion gap [Moles/Vol] 9.6 mmol/L 6.0-15.0 [facility] Serum or plasma anion gap de terminationOrdered By: Brook Huddleston on 02-29-2024 Anion gap [Moles/Vol] 7.2 mmol/L 6.0-15.0 [facility] Sodium [Moles/volume] in Ser um or PlasmaOrdered By: Price Crain on 02-29-2024 Sodium [Moles/Vol] 138 mmol/L 136-145 [facility] Sodium [Moles/volume] in Ser um or PlasmaOrdered By: Brook Huddleston on 02-29-2024 Sodium [Moles/Vol] 137 mmol/L 136-145 [facility] Urate [Mass/volume] in Serum or PlasmaOrdered By: Price Crain on 02-29-2024 Urate [Mass/Vol] 5.1 mg/dL 4.4-7.6 [facility] Urea nitrogen [Mass/volume] in Serum or PlasmaOrdered By: Price Crain on 02-29-2024 Urea nitrogen [Mass/Vol] 27 mg/dL [facility] 7-25 [facility] Urea nitrogen [Mass/volume] in Serum or PlasmaOrdered By: Brook Huddleston on 02-29-2024 Urea nitrogen [Mass/Vol] 27 mg/dL [facility] 7-25 [facility] Urine microalbumin/creatinin e mass ratioOrdered By: Price Crain on 02-29-2024 Albumin/Creatinine DL <= 20 mg/L (U) [Mass ratio] TNP [facility] Comment on above: Test not performed Urine protein/creatinine rat ioOrdered By: Price Crain on 02-29-2024 Protein/Creatinine (U) [Ratio] 1233 mg/g{Cre} High 0-200 [facility] Vitamin D+Metabolites [Mass/ volume] in Serum or PlasmaOrdered By: Price Crain on 02-29-2024 Vitamin D+Metabolites [Mass/Vol] 66.8 ng/mL 30-100 [facility] Comment on above: VITAMIN D STATUS 25( [place])VITAMIN D RANGE (ng/mL) Deficient <20 Insufficient 20 to <30Sufficient 30 to 100Reference: Dieudonne MF,Brendon NC, Estrella CARTER, et al. Evaluation,treatment, and prevention of vitamin D deficiency; an Endocrine Society clinical practice guideline. JCEM. 2010; 96(7):1911-30. WBC Auto (Bld) [#/Vol]Ordere d By: Brook Huddleston on 02-29-2024 WBC (Bld) [#/Vol] 7.2 10*3/uL 4.1-10.5 [facility] Creatinine (Bld) [Mass/Vol]O rdered By: Orquidea Cortez on 02-25-2024 Creatinine [Mass/Vol] 2.5 mg/dL High 0.6-1.3 [facility] Comment on above: ER/ESD physician is notified/shown all ISTAT results.Critical values may be confirmed by laboratory testing ifdeemed necessary by ER attending doctor. No Panel InformationOrdered By: Orquidea Cortez on 02-25-2024 Bedside Estimated GFR (eGFR) 25.496 [facility] Ambulatory Visit Summaryon 0 02-24-2024 Ambulatory Visit Summary Ambulatory Visit Summary PATSY CUNNINGHAM :1945 Visit Date:02/24/2024 Ambulatory Visit Instructions Your [...] APRN, [place] X Where: [facility] Operative Reporton Operative Report [id number] [facility] RAD - MISCon 02-05-2024 RAD - MISC [id number]#[id number] [facility] Alanine aminotransferase [En zymatic activity/volume] in Serum or PlasmaOrdered By: Brook Huddleston on 2024 ALT [Catalytic activity/Vol] 20 U/L 7-52 [facility] Albumin [Mass/volume] in Ser um or PlasmaOrdered By: Brook Huddleston on 2024 Albumin [Mass/Vol] 3.2 g/dL 2.9-4.4 [facility] Albumin [Mass/volume] in Ser um or Plasma by Bromocresol green (BCG) dye binding methoOrdered By: Brook Huddleston on 2024 Albumin BCG dye [Mass/Vol] 3.6 g/dL 3.5-5.7 [facility] Albumin/Protein.total in 24 hour Urine by ElectrophoresisOrdered By: Brook Huddleston on 2024 Albumin Elph (24H U) [Mass fraction] 42.1 % . [facility] Alkaline phosphatase [Enzyma tic activity/volume] in Serum or PlasmaOrdered By: Brook uHddleston on 2024 ALP [Catalytic activity/Vol] 101 U/L 34-104 [facility] Aspartate aminotransferase [ Enzymatic activity/volume] in Serum or PlasmaOrdered By: Brook Huddleston on 2024 AST [Catalytic activity/Vol] 22 U/L 13-39 [facility] Basophils Auto (Bld) [#/Vol] Ordered By: Brook Huddleston on 2024 Basophils (Bld) [#/Vol] 0.0 10*3/uL 0.0-0.2 [facility] Basophils/100 WBC Auto (Bld) Ordered By: Brook Huddleston on 2024 Basophils/100 WBC (Bld) 0.1 % . [facility] Bilirubin.total [Mass/volume ] in Serum or PlasmaOrdered By: Brook Huddleston on 2024 Bilirubin [Mass/Vol] 0.5 mg/dL 0.3-1.0 [facility] Calcium [Mass/volume] in Ser um or PlasmaOrdered By: Brook Huddleston on 2024 Calcium [Mass/Vol] 8.5 mg/dL Low 8.6-10.3 [facility] Carbon dioxide, total [Moles /volume] in Serum or PlasmaOrdered By: Brook Huddleston on 2024 CO2 [Moles/Vol] 21.8 mmol/L 21.0-31.0 [facility] Chloride [Moles/volume] in S valeria or PlasmaOrdered By: Brook Huddleston on 2024 Chloride [Moles/Vol] 107 mmol/L 98-107 [facility] Creatinine [Mass/volume] in Serum or PlasmaOrdered By: Brook Huddleston on 2024 Creatinine [Mass/Vol] 2.82 mg/dL High 0.70-1.30 [facility] Eosinophils Auto (Bld) [#/Vo l]Ordered By: Brook Huddleston on 2024 Eosinophils (Bld) [#/Vol] 0.2 10*3/uL 0.0-0.45 [facility] Eosinophils/100 WBC Auto (Bl d)Ordered By: Brook Huddleston on 2024 Eosinophils/100 WBC (Bld) 1.3 % . [facility] Erythrocyte distribution wid th Auto (RBC) [Ratio]Ordered By: Brook Huddleston on 2024 Erythrocyte distribution width (RBC) [Ratio] 16.6 % High 12.0-14.8 [facility] Gamma globulin/Protein.total in 24 hour Urine by ElectrophoresisOrdered By: Brook Huddleston on 2024 Gamma globulin Elph (24H U) [Mass fraction] 22.0 % . [facility] Globulin Calc (S) [Mass/Vol] Ordered By: Brook Huddleston on 2024 Globulin (S) [Mass/Vol] 2.6 g/dL [facility] Glucose [Mass/volume] in Ser um or PlasmaOrdered By: Brook Huddleston on 2024 Glucose [Mass/Vol] 220 mg/dL High 70-100 [facility] Comment on above: ADA recommended refe rence rangeRandom Glucose Reference Range is dependent on time and content of last meal. Glucose of more than 200 mg/dL in a nonstressed, ambulatory subject supports the diagnosis of Diabetes Mellitus. Hematocrit Auto (Bld) [Volum e fraction]Ordered By: Brook Huddleston on 2024 Hematocrit (Bld) [Volume fraction] 25.2 % Low 38.8-50.0 [facility] Hemoglobin [Mass/volume] in BloodOrdered By: Brook Huddleston on 2024 Hemoglobin (Bld) [Mass/Vol] 8.3 g/dL Low 13.0-17.0 [facility] IgA [Mass/volume] in Serum o r PlasmaOrdered By: Brook Huddleston on 2024 IgA [Mass/Vol] 220 mg/dL 61-437 [facility] IgG [Mass/volume] in Serum o r PlasmaOrdered By: Brook Huddleston on 2024 IgG [Mass/Vol] 1130 mg/dL 603-1613 [facility] IgM [Mass/volume] in Serum o r PlasmaOrdered By: Brook Huddleston on 2024 IgM [Mass/Vol] 61 mg/dL 15-143 [facility] Comment on above: Performed at: [facility] [address] [id number] Director: Melchor Agrawal PhD, Phone: [phone] Immunofixation for UrineOrde red By: Brook Huddleston on 2024 Interpretation Immunofixation (U) [Interp] Comment: . [facility] Comment on above: Presence of monoclon al protein is unclear at this time. Suggestrepeat in 3 to 6 months if clinically indicated.Performed at: [employer] [facility] [address] [id number] Director: Melchor Agrawal PhD, Phone: [phone] Immunoglobulin light chains. kappa.free [Mass/volume] in SerumOrdered By: Brook Huddleston on 2024 Immunoglobulin light chains.kappa.free (S) [Mass/Vol] 55.9 mg/L High 3.3-19.4 [facility] Immunoglobulin light chains. kappa.free/Immunoglobulin light chains.lambda.free [MassOrdered By: Brook Huddleston on 2024 Immunoglobulin light chains.kappa.free/Immun oglobulin light chains.lambda.free (S) [Mass ratio] 1.53 0.26-1.65 [facility] Comment on above: Performed at: [facility] [address] [id number] Director: Melchor Agrawal PhD, Phone: [phone] Immunoglobulin light chains. lambda.free [Mass/volume] in Serum or PlasmaOrdered By: Brook Huddleston on 2024 Immunoglobulin light chains.lambda.free [Mass/Vol] 36.6 mg/L High 5.7-26.3 [facility] Lab Reportson 2024 Lab Reports [id number]#1.00TIFF Normal [facility] Lab Reports [id number]#1.00TIFF Normal [facility] Lactate dehydrogenase [Enzym atic activity/volume] in Serum or Plasma by Lactate to pyOrdered By: Brook Huddleston on 2024 LDH Lactate to pyruvate reaction [Catalytic activity/Vol] 157 U/L 140-271 [facility] Leukocytes [#/volume] correc lizbet for nucleated erythrocytes in Blood by Automated counOrdered By: Brook Huddleston on 2024 WBC corrected for nucl RBC Auto (Bld) [#/Vol] 12.2 10*3/uL High 4.1-10.5 [facility] Lymphocytes Auto (Bld) [#/Vo l]Ordered By: Brook Huddleston on 2024 Lymphocytes (Bld) [#/Vol] 0.5 10*3/uL Low 1.00-4.8 [facility] Lymphocytes/100 WBC Auto (Bl d)Ordered By: Brook Huddleston on 2024 Lymphocytes/100 WBC (Bld) 4.1 % . [facility] MCH Auto (RBC) [Entitic mass ]Ordered By: Brook Huddleston on 2024 MCH (RBC) [Entitic mass] 35.9 pg High 27.5-35.2 [facility] MCHC Auto (RBC) [Mass/Vol]Or dered By: Brook Huddleston on 2024 MCHC (RBC) [Mass/Vol] 33.1 g/dL 32.5-35.6 [facility] MCV Auto (RBC) [Entitic vol] Ordered By: Brook Huddleston on 2024 MCV (RBC) [Entitic vol] 108.4 fL High 83.5-101 [facility] Monocytes Auto (Bld) [#/Vol] Ordered By: Brook Huddleston on 2024 Monocytes (Bld) [#/Vol] 0.6 10*3/uL 0.0-0.8 [facility] Monocytes/100 WBC Auto (Bld) Ordered By: Brook Huddleston on 2024 Monocytes/100 WBC (Bld) 5.0 % . [facility] Neutrophils Auto (Bld) [#/Vo l]Ordered By: Brook Huddleston on 2024 Neutrophils (Bld) [#/Vol] 11.0 10*3/uL High 1.8-7.7 [facility] Neutrophils/100 WBC Auto (Bl d)Ordered By: Brook Huddleston on 2024 Neutrophils/100 WBC (Bld) 89.5 % . [facility] No Panel InformationOrdered By: Brook Huddleston on 2024 Estimated GFR (CKD-EPI) 22.203 mL/Min [facility] Creatinine Clearance (Chem 24.26 [facility] Protein Electrophoresis M-Anselmo Not observed g/dL Not Observed [facility] Protein Electrophoresis Note See comment . [facility] Comment on above: Protein electrophore sis scan will follow via computer,mail, or technical documentation specialist delivery.Performed at: [facility] [id number] Director: Melchor Agrawal PhD, Phone: [phone] Urine Random Prot Electrophor Note See comment . [facility] Comment on above: Protein electrophore sis scan will follow via computer,mail, or technical documentation specialist delivery.Performed at: [facility] [place] [id number] Director: Melchor Agrawal PhD, Phone: [phone] Nucleated erythrocytes [Pres ence] in Blood by Automated countOrdered By: Brook Huddleston on 2024 Nucleated RBC Auto Ql (Bld) 0.0 /100{WBC} 0-0.5 [facility] Operative Reporton 4 Operative Report [id number]#1.00TIFF Normal [facility] Platelet mean volume Auto (B ld) [Entitic vol]Ordered By: Brook Huddleston on 2024 Platelet mean volume (Bld) [Entitic vol] 7.5 fL 6.6-10.1 [facility] Platelets Auto (Bld) [#/Vol] Ordered By: Brook Huddleston on 2024 Platelets (Bld) [#/Vol] 196 10*3/uL 150-450 [facility] Potassium [Moles/volume] in Serum or PlasmaOrdered By: Brook Huddleston on 2024 Potassium [Moles/Vol] 4.6 mmol/L 3.5-5.1 [facility] Protein [Mass/volume] in Ser um or PlasmaOrdered By: Brook Huddleston on 2024 Protein [Mass/Vol] 6.2 g/dL Low 6.4-8.9 [facility] Protein [Mass/Vol] 6.4 g/dL 6.0-8.5 [facility] Protein [Mass/volume] in Uri neOrdered By: Brook Huddleston on 2024 Protein (U) [Mass/Vol] 289.2 mg/dL Not Estab. [facility] Comment on above: Results confirmed on dilution. Protein.monoclonal/Protein.t otal in 24 hour Urine by ElectrophoresisOrdered By: Brook Huddleston on 2024 Protein.monoclonal Elph (24H U) [Mass fraction] Comment: % Not Observed [facility] Comment on above: UPE shows asymmetric al gamma. RBC Auto (Bld) [#/Vol]Ordere d By: Brook Huddleston on 2024 RBC (Bld) [#/Vol] 2.33 10*6/uL Low 3.90-5.60 [facility] Serum globulin measurement ( mass/volume)Ordered By: Brook Huddleston on 2024 Globulin (S) [Mass/Vol] 3.2 g/dL 2.2-3.9 [facility] Serum or plasma albumin/glob ulin mass ratioOrdered By: Brook Huddleston on 2024 Albumin/Globulin [Mass ratio] 1.4 {ratio} [facility] Albumin/Globulin [Mass ratio] 1.0 {ratio} 0.7-1.7 [facility] Serum or plasma alpha 1 glob ulin measurement by electrophoresis (mass/volume)Ordered By: Brook Huddleston on 2024 Alpha 1 globulin Elph [Mass/Vol] 0.4 g/dL 0.0-0.4 [facility] Serum or plasma alpha 2 glob ulin measurement by electrophoresis (mass/volume)Ordered By: Brook Huddleston on 2024 Alpha 2 globulin Elph [Mass/Vol] 0.9 g/dL 0.4-1.0 [facility] Serum or plasma anion gap de terminationOrdered By: Brook Huddleston on 2024 Anion gap [Moles/Vol] 11.8 mmol/L 6.0-15.0 [facility] Serum or plasma beta globuli n measurement by electrophoresis (mass/volume)Ordered By: Brook Huddleston on 2024 Beta globulin Elph [Mass/Vol] 0.8 g/dL 0.7-1.3 [facility] Serum or plasma gamma globul in measurement by electrophoresis (mass/volume)Ordered By: Brook Huddleston on 2024 Gamma globulin Elph [Mass/Vol] 1.0 g/dL 0.4-1.8 [facility] Serum or plasma homocysteine measurement (moles/volume)Ordered By: Brook Huddleston on 2024 Homocysteine [Moles/Vol] 10.3 umol/L 0.0-19.2 [facility] Comment on above: Performed at: [employer] [address] [id number] Director: Melchor Agrawal PhD, Phone: [phone] Homocysteine [Moles/Vol] Serum or plasma homocysteine measurement (moles/volume) 0.0-19.2 [facility] Comment on above: Performed at: [facility] [address] [id number] Director: Melchor Agrawal PhD, Phone: [phone] Serum or plasma methylmalona te measurement (moles/volume)Ordered By: Brook Huddleston on 2024 Methylmalonate [Moles/Vol] 347 nmol/L 0-378 [facility] Comment on above: This test was develo ped and its performance characteristicsdetermined by awe[employer]sm. It has not been cleared orapproved by the Food and Drug Administration.Performed at: [address] [id number] Director: Aliya Curtis MD, Phone: [phone] Methylmalonate [Moles/Vol] Serum or plasma methylmalonate measurement (moles/volume) 0-378 [facility] Comment on above: This test was develo ped and its performance characteristicsdetermined by awe.sm. It has not been cleared orapproved by the Food and Drug Administration.Performed at: [facility] [address] [id number] Director: Aliya Curtis MD, Phone: [phone] Sodium [Moles/volume] in Ser um or PlasmaOrdered By: Brook Huddleston on 2024 Sodium [Moles/Vol] 136 mmol/L 136-145 [facility] Urea nitrogen [Mass/volume] in Serum or PlasmaOrdered By: Brook Huddleston on 2024 Urea nitrogen [Mass/Vol] 36 mg/dL High 7-25 [facility] Urine alpha 1 globulin/total protein by electrophoresisOrdered By: Brook Huddleston on 2024 Alpha 1 globulin Elph (U) [Mass fraction] 6.0 % . [facility] Urine alpha 2 globulin/total protein ratio by electrophoresisOrdered By: Brook Huddleston on 2024 Alpha 2 globulin Elph (U) [Mass fraction] 13.5 % . [facility] Urine beta globulin measurem ent by electrophoresis (mass/volume)Ordered By: Brook Huddleston on 2024 Beta globulin Elph (U) [Mass/Vol] 16.4 % . [facility] WBC Auto (Bld) [#/Vol]Ordere d By: Brook Huddleston on 2024 WBC (Bld) [#/Vol] 12.2 10*3/uL High 4.1-10.5 [facility] Lab Reportson 02-03-2024 Lab Reports [id number]#[id number] Normal [facility] Consent for Procedure/Surger yon 02-02-2024 Consent for Procedure/Surgery [id number]#1.00TIFF Normal [facility] Consent for Procedure/Surgery [id number]#1.00TIFF Normal [facility] Lab Reportson 02-02-2024 Lab Reports [id number]#1.00TIFF Normal [facility] Lab Reports [id number]#1.00TIFF Normal [facility] Ambulatory Visit Summaryon 0 01-28-2024 Ambulatory [...] RICKS, Orquidea Taylor Primary Care Physician - DNO RICKS, HELEN This Is Your Medications List Contact prescribing [...] Ureteral stricture (more content not included)... Normal [facility] Ambulatory Visit Summary PATSY CUNNINGHAM :1945 [...] Ureteral stricture (more content not included)... Normal [facility] Patient Educationon 01-28-20 Patient Education Urology [...] including vitamins, herbs, eye drops, creams, and bbwj-lcx-sloelst medicines. ? Any problems you or family [...] tells you to take them. ? Taking djge-gpy-bicjjhy medicines, vitamins, herbs, and supplements. General instructions [...] in yo (more content not included)... Normal [facility] Urology Office/Clinic Noteon 01-28-2024 Urology Office/Clinic [...] 7 days sent empirically. Pt presented to [facility] ED 01/19/24. UCx 01/19/24 - >100k K. oxytoca, lane sensitive. Blood cx neg. ANA 01/20/24 [facility]. Dysuria: denies Incomplete bladder emptying: Has Bond Hematuria: denies Leaking: denies Abdominal pain: denies Flank pain: denies History of Present Illness Tests reviewed: reviewed UA, ED records, consult notes, ANA, ucx, blood cx, labs, PSA I have reviewed the previous health record information and history for this patient from Dr. Cortez, [facility]. I have reviewed and verified the staff [...] detrusor recording (more content not included)... Normal [facility] Comment on above: Result Comment: Elec tronically Signed By: Diego RICKS, Orquidea Brock.br\Date and Time Signed: 01/28/24 16:57 EDT\.br\Electronically Co-Signed By: Valentina Sharp\.br\Date and Time Co-Signed: 01/28/24 11:14 EDT Consultation Noteon 01-25-20 Consultation Note [id number]#1.00TIFF Normal [facility] Basophils Auto (Bld) [#/Vol] Ordered By: Clarence Miller on 01-22-2024 Basophils (Bld) [#/Vol] 0.0 10*3/uL 0.0-0.2 [facility] Basophils/100 WBC Auto (Bld) Ordered By: Clarence Miller on 01-22-2024 Basophils/100 WBC (Bld) 0.3 % . [facility] Calcium [Mass/volume] in Ser um or PlasmaOrdered By: Clarence Miller on 01-22-2024 Calcium [Mass/Vol] 8.9 mg/dL 8.6-10.3 [facility] Carbon dioxide, total [Moles /volume] in Serum or PlasmaOrdered By: Clarence Miller on 01-22-2024 CO2 [Moles/Vol] 23.3 mmol/L 21.0-31.0 [facility] Chloride [Moles/volume] in S valeria or PlasmaOrdered By: Clarence Miller on 01-22-2024 Chloride [Moles/Vol] 110 mmol/L High 98-107 [facility] Consultation Noteon 01-22-20 Consultation Note [id number]#1.00TIFF Normal [facility] Creatinine [Mass/volume] in Serum or PlasmaOrdered By: Clarence Miller on 01-22-2024 Creatinine [Mass/Vol] 2.58 mg/dL High 0.70-1.30 [facility] ED Note-Physicianon 01-22-20 ED Note-Physician [id number]#1.00TIFF Normal [facility] ED Note-Physician [id number]#1.00TIFF Normal [facility] Eosinophils Auto (Bld) [#/Vo l]Ordered By: Clarence Miller on 01-22-2024 Eosinophils (Bld) [#/Vol] 0.3 10*3/uL 0.0-0.45 [facility] Eosinophils/100 WBC Auto (Bl d)Ordered By: Clarence Miller on 01-22-2024 Eosinophils/100 WBC (Bld) 3.3 % . [facility] Erythrocyte distribution wid th Auto (RBC) [Ratio]Ordered By: Clarence Miller on 01-22-2024 Erythrocyte distribution width (RBC) [Ratio] 16.1 % High 12.0-14.8 [facility] Ferritin [Mass/volume] in Se rum or PlasmaOrdered By: Price Crain on 01-22-2024 Ferritin [Mass/Vol] 488.7 ng/mL High 23.9-336.2 [facility] Folate [Mass/volume] in Seru m or PlasmaOrdered By: Price Crain on 01-22-2024 Folate [Mass/Vol] 15.7 ng/mL >5.9 [facility] Comment on above: Folate reference ran ge: >5.9 ng/mlThe WHO technical consultation on folate and vitamin [id number] has determined that folate concentrations lessthan 4 ng/ml are considered deficient. Glucose Glucometer (BldC) [M ass/Vol]Ordered By: Clarence Miller on 01-22-2024 Glucose [Mass/Vol] 142 mg/dL [facility] Comment on above: Random Glucose Refer ence Range is dependent on time and content of last meal. Glucose of more than 200 mg/dL in a nonstressed, ambulatory subject supports the diagnosis of Diabetes Mellitus. Glucose [Mass/volume] in Ser um or PlasmaOrdered By: Clarence Miller on 01-22-2024 Glucose [Mass/Vol] 51 mg/dL Low 70-100 [facility] Comment on above: ADA recommended refe rence rangeRandom Glucose Reference Range is dependent on time and content of last meal. Glucose of more than 200 mg/dL in a nonstressed, ambulatory subject supports the diagnosis of Diabetes Mellitus. Hematocrit Auto (Bld) [Volum e fraction]Ordered By: Clarence Miller on 01-22-2024 Hematocrit (Bld) [Volume fraction] 26.0 % Low 38.8-50.0 [facility] Hemoglobin [Mass/volume] in BloodOrdered By: Clarence Miller on 01-22-2024 Hemoglobin (Bld) [Mass/Vol] 8.9 g/dL Low 13.0-17.0 [facility] Iron [Mass/volume] in Serum or PlasmaOrdered By: Price Crain on 01-22-2024 Iron [Mass/Vol] 59 ug/dL 50-212 [facility] Iron binding capacity [Mass/ volume] in Serum or PlasmaOrdered By: Price Crain on 01-22-2024 Iron binding capacity [Mass/Vol] 164 ug/dL Low 255-450 [facility] Iron saturation [Mass Fracti on] in Serum or PlasmaOrdered By: Price Crain on 01-22-2024 Iron saturation [Mass fraction] 36.0 % 20-50 [facility] Lab Reportson 01-22-2024 Lab Reports [id number]#[id number] Normal [facility] Leukocytes [#/volume] correc lizbet for nucleated erythrocytes in Blood by Automated counOrdered By: Clarence Miller on 01-22-2024 WBC corrected for nucl RBC Auto (Bld) [#/Vol] 8.1 10*3/uL 4.1-10.5 [facility] Lymphocytes Auto (Bld) [#/Vo l]Ordered By: Clarence Miller on 01-22-2024 Lymphocytes (Bld) [#/Vol] 1.4 10*3/uL 1.00-4.8 [facility] Lymphocytes/100 WBC Auto (Bl d)Ordered By: Clarence Miller on 01-22-2024 Lymphocytes/100 WBC (Bld) 17.0 % . [facility] MCH Auto (RBC) [Entitic mass ]Ordered By: Clarence Miller on 01-22-2024 MCH (RBC) [Entitic mass] 36.5 pg High 27.5-35.2 [facility] MCHC Auto (RBC) [Mass/Vol]Or dered By: Clarence Miller on 01-22-2024 MCHC (RBC) [Mass/Vol] 34.3 g/dL 32.5-35.6 [facility] MCV Auto (RBC) [Entitic vol] Ordered By: Clarence Miller on 01-22-2024 MCV (RBC) [Entitic vol] 106.2 fL High 83.5-101 [facility] Monocytes Auto (Bld) [#/Vol] Ordered By: Clarence Miller on 01-22-2024 Monocytes (Bld) [#/Vol] 0.6 10*3/uL 0.0-0.8 [facility] Monocytes/100 WBC Auto (Bld) Ordered By: Clarence Miller on 01-22-2024 Monocytes/100 WBC (Bld) 7.2 % . [facility] Neutrophils Auto (Bld) [#/Vo l]Ordered By: Clarence Miller on 01-22-2024 Neutrophils (Bld) [#/Vol] 5.8 10*3/uL 1.8-7.7 [facility] Neutrophils/100 WBC Auto (Bl d)Ordered By: Clarence Miller on 01-22-2024 Neutrophils/100 WBC (Bld) 72.2 % . [facility] No Panel InformationOrdered By: Clarence Miller on 01-22-2024 Estimated GFR (CKD-EPI) 24.703 mL/Min [facility] Creatinine Clearance (Chem 26.98 [facility] Nucleated erythrocytes [Pres ence] in Blood by Automated countOrdered By: Clarence Miller on 01-22-2024 Nucleated RBC Auto Ql (Bld) 0.1 /100{WBC} 0-0.5 [facility] Platelet mean volume Auto (B ld) [Entitic vol]Ordered By: Clarence Miller on 01-22-2024 Platelet mean volume (Bld) [Entitic vol] 7.8 fL 6.6-10.1 [facility] Platelets Auto (Bld) [#/Vol] Ordered By: Clarence Miller on 01-22-2024 Platelets (Bld) [#/Vol] 199 10*3/uL 150-450 [facility] Potassium [Moles/volume] in Serum or PlasmaOrdered By: Clarence Miller on 01-22-2024 Potassium [Moles/Vol] 4.1 mmol/L 3.5-5.1 [facility] RAD - MISCon 01-22-2024 RAD - MISC [id number]#1.00TIFF Normal [facility] RAD - Ultrasound Reporton RAD - Ultrasound Report [id number]#1.00TIFF Normal [facility] RBC Auto (Bld) [#/Vol]Ordere d By: Clarence Miller on 01-22-2024 RBC (Bld) [#/Vol] 2.45 10*6/uL Low 3.90-5.60 [facility] Serum or plasma anion gap de terminationOrdered By: Clarence Miller on 01-22-2024 Anion gap [Moles/Vol] 11.8 mmol/L 6.0-15.0 [facility] Sodium [Moles/volume] in Ser um or PlasmaOrdered By: Clarence Miller on 01-22-2024 Sodium [Moles/Vol] 141 mmol/L 136-145 [facility] Transferrin [Mass/volume] in Serum or PlasmaOrdered By: Price Crain on 01-22-2024 Transferrin [Mass/Vol] 117 mg/dL Low 203-362 [facility] Urea nitrogen [Mass/volume] in Serum or PlasmaOrdered By: Clarence Miller on 01-22-2024 Urea nitrogen [Mass/Vol] 31 mg/dL High 7-25 [facility] Vitamin B12 ser/plasOrdered By: Price Crain on 01-22-2024 Cobalamin (Vitamin B12) [Mass/Vol] 426 pg/mL 180-914 [facility] WBC Auto (Bld) [#/Vol]Ordere d By: Clarence Miller on 01-22-2024 WBC (Bld) [#/Vol] 8.1 10*3/uL 4.1-10.5 [facility] C Urineon 01-20-2024 Bacteria identified Cx Nom (U) Microbiology PROCEDURE: Urine Culture [R1] SOURCE: U Random BODY SITE: COLLECTED DATE/TIME: 01/18/2024 15:42 EDT RECEIVED DATE/TIME: 01/18/2024 18:56 EDT START DATE/TIME: 01/18/2024 18:56 EDT FREE TEXT SOURCE: Nati MEJIA ANTONIO-C, Nati MEJIA, RN INTERNSHIP-C, Makayla X Makayla X FINAL REPORTS Final Report [] Verified Date/Time: 01/20/2024 13:36 EDT <10,000 cfu/ml Mixed skin contaminants including yeast. Mixed cecil (multiple species present) >3 colony types Performing Locations R1: This test was performed at: [facility], [address] [place] [address], [address] , [place], Normal [facility] Comment on above: Performed By: #### [id number] #### [facility] [address] [place] [id number] Creatinine [Mass/volume] in UrineOrdered By: Price Crain on 01-20-2024 Creatinine (U) [Mass/Vol] 38.00 mg/dL [facility] Comment on above: No reference range e stablished Sodium [Moles/volume] in Uri neOrdered By: Price Crain on 01-20-2024 Sodium (U) [Moles/Vol] 84 mmol/L [facility] Comment on above: No reference range e stablished Activated partial thrombopla stin time (aPTT) in platelet poor plasma by coagulation aOrdered By: Merry Davies on 01-19-2024 aPTT Coag (PPP) [Time] 24.2 s Low 25.1-36.5 [facility] Comment on above: A hematocrit value g reater than 55% may lead to inaccurate results in coagulation testing. Patients having hematocrit values >55% require a special collection tube for coagulation studies. Please contact the laboratory at [phone] for redraw instructions. Alanine aminotransferase [En zymatic activity/volume] in Serum or PlasmaOrdered By: Merry Davies on 01-19-2024 ALT [Catalytic activity/Vol] 13 U/L 7 [facility] Albumin [Mass/volume] in Ser um or Plasma by Bromocresol green (BCG) dye binding methoOrdered By: Merry Davies on 01-19-2024 Albumin BCG dye [Mass/Vol] 3.4 g/dL Low 3.5-5.7 [facility] Alkaline phosphatase [Enzyma tic activity/volume] in Serum or PlasmaOrdered By: Merry Davies on 01-19-2024 ALP [Catalytic activity/Vol] 83 U/L 34-104 [facility] Aspartate aminotransferase [ Enzymatic activity/volume] in Serum or PlasmaOrdered By: Merry Davies on 01-19-2024 AST [Catalytic activity/Vol] 15 U/L 13-39 [facility] Bacteria [Presence] in Urine by AutomatedOrdered By: Merry Davies on 01-19-2024 Bacteria Auto Ql (U) 4+ [HPF] High None Seen [facility] Bacterial blood cultureOrder ed By: Merry Davies on 01-19-2024 Bacteria identified Cx Nom (Bld) NO GROWTH 5 DAYS [facility] Bacteria identified Cx Nom (Bld) NO GROWTH 5 DAYS [facility] Basophils Auto (Bld) [#/Vol] Ordered By: Merry Davies on 01-19-2024 Basophils (Bld) [#/Vol] 0.0 10*3/uL 0.0-0.2 [facility] Basophils/100 WBC Auto (Bld) Ordered By: Merry Davies on 01-19-2024 Basophils/100 WBC (Bld) 0.3 % . [facility] Bilirubin Test strip Ql (U)O rdered By: Merry Davies on 01-19-2024 Bilirubin Ql (U) Negative Negative [facility] Bilirubin.total [Mass/volume ] in Serum or PlasmaOrdered By: Merry Davies on 01-19-2024 Bilirubin [Mass/Vol] 0.5 mg/dL 0.3-1.0 [facility] Calcium [Mass/volume] in Ser um or PlasmaOrdered By: Merry Davies on 01-19-2024 Calcium [Mass/Vol] 9.2 mg/dL 8.6-10.3 [facility] Carbon dioxide, total [Moles /volume] in Serum or PlasmaOrdered By: Merry Davies on 01-19-2024 CO2 [Moles/Vol] 19.3 mmol/L 21.0-31.0 [facility] Chloride [Moles/volume] in S valeria or PlasmaOrdered By: Merry Davies on 01-19-2024 Chloride [Moles/Vol] 105 mmol/L 98-107 [facility] Color Auto (U)Ordered By: Bassem Daives on 01-19-2024 Color (U) [place] Abnormal Yellow [facility] Creatinine [Mass/volume] in Serum or PlasmaOrdered By: Merry Davies on 01-19-2024 Creatinine [Mass/Vol] 3.07 mg/dL 0.70-1.30 [facility] Eosinophils Auto (Bld) [#/Vo l]Ordered By: Merry Davies on 01-19-2024 Eosinophils (Bld) [#/Vol] 0.2 10*3/uL 0.0-0.45 [facility] Eosinophils/100 WBC Auto (Bl d)Ordered By: Merry Davies on 01-19-2024 Eosinophils/100 WBC (Bld) 2.0 % . [facility] Epithelial cells.squamous [# /area] in Urine sediment by Automated countOrdered By: Merry Davies on 01-19-2024 Epithelial cells.squamous Auto (Urine sed) [#/Area] 5-9 [HPF] High 0-2 [facility] Erythrocyte distribution wid th Auto (RBC) [Ratio]Ordered By: Merry Davies on 01-19-2024 Erythrocyte distribution width (RBC) [Ratio] 16.5 % 12.0-14.8 [facility] Erythrocytes [#/area] in Uri ne sediment by Automated countOrdered By: Merry Davies on 01-19-2024 RBC Auto (Urine sed) [#/Area] 20-49 [HPF] High 0-4 [facility] Fecal occult blood detection by immunochemistryOrdered By: Merry Davies on 01-19-2024 Hemoglobin.gastrointest inal Ql (Stl) [facility] Globulin Calc (S) [Mass/Vol] Ordered By: Merry Davies on 01-19-2024 Globulin (S) [Mass/Vol] 3.0 g/dL [facility] Glucose [Mass/volume] in Ser um or PlasmaOrdered By: Merry Davies on 01-19-2024 Glucose [Mass/Vol] 133 mg/dL 70-100 [facility] Comment on above: ADA recommended refe rence rangeRandom Glucose Reference Range is dependent on time and content of last meal. Glucose of more than 200 mg/dL in a nonstressed, ambulatory subject supports the diagnosis of Diabetes Mellitus. Glucose [Mass/volume] in Uri ne by Test stripOrdered By: Merry Davies on 01-19-2024 Glucose Test strip (U) [Mass/Vol] Normal mg/dL Normal [facility] Hematocrit Auto (Bld) [Volum e fraction]Ordered By: Merry Davies on 01-19-2024 Hematocrit (Bld) [Volume fraction] 25.3 % 38.8-50.0 [facility] Hemoglobin Test strip Ql (U) Ordered By: Merry Davies on 01-19-2024 Hemoglobin Ql (U) 3+ High Negative [facility] Hemoglobin [Mass/volume] in BloodOrdered By: Merry Davies on 01-19-2024 Hemoglobin (Bld) [Mass/Vol] 8.5 g/dL 13.0-17.0 [facility] Hyaline casts [#/area] in Ur ine sediment by Automated countOrdered By: Merry Davies on 01-19-2024 Hyaline casts Auto (Urine sed) [#/Area] None [LPF] 0-8 [facility] INR in Platelet poor plasma by Coagulation assayOrdered By: Merry Davies on 01-19-2024 INR Coag (PPP) [Relative time] 1.3 {INR} [facility] Comment on above: INR Therapeutic Rang e [...] on 01-19-2024 Ketones Ql (U) Negative Negative [facility] Lactate [Moles/volume] in Se rum or PlasmaOrdered By: Merry Davies on 01-19-2024 Lactate [Moles/Vol] 0.8 mmol/L 0.5-2.2 [facility] Leukocyte clumps [Presence] in Urine by AutomatedOrdered By: Merry Davies on 01-19-2024 Leukocyte clumps Auto Ql (U) Many [LPF] High None Seen [facility] Leukocyte esterase [Presence ] in Urine by Test stripOrdered By: Merry Davies on 01-19-2024 Leukocyte esterase Test strip Ql (U) 4+ High Negative [facility] Leukocytes [#/area] in Urine sediment by Automated countOrdered By: Merry Davies on 01-19-2024 WBC Auto (Urine sed) [#/Area] Innumerable [HPF] High 0-4 [facility] Leukocytes [#/volume] correc lizbet for nucleated erythrocytes in Blood by Automated counOrdered By: Merry Davies on 01-19-2024 WBC corrected for nucl RBC Auto (Bld) [#/Vol] 11.1 10*3/uL 4.1-10.5 [facility] Lymphocytes Auto (Bld) [#/Vo l]Ordered By: Merry Dvaies on 01-19-2024 Lymphocytes (Bld) [#/Vol] 0.8 10*3/uL 1.00-4.8 [facility] Lymphocytes/100 WBC Auto (Bl d)Ordered By: Merry Davies on 01-19-2024 Lymphocytes/100 WBC (Bld) 6.9 % . [facility] MCH Auto (RBC) [Entitic mass ]Ordered By: Merry Davies on 01-19-2024 MCH (RBC) [Entitic mass] 36.1 pg 27.5-35.2 [facility] MCHC Auto (RBC) [Mass/Vol]Or dered By: Merry Davies on 01-19-2024 MCHC (RBC) [Mass/Vol] 33.6 g/dL 32.5-35.6 [facility] MCV Auto (RBC) [Entitic vol] Ordered By: Merry Davies on 01-19-2024 MCV (RBC) [Entitic vol] 107.7 fL 83.5-101 [facility] Monocyte distribution width [Entitic volume] in Blood by AutomatedOrdered By: Merry Davies on 01-19-2024 Monocyte distribution width Auto (Bld) [Entitic vol] 23.65 % High 0.00-20.00 [facility] Comment on above: For adults in ED, MD W > 20.0 may be associated with a higher risk of sepsis during the first 12 hrs of hospital admission Monocytes Auto (Bld) [#/Vol] Ordered By: Merry Davies on 01-19-2024 Monocytes (Bld) [#/Vol] 0.8 10*3/uL 0.0-0.8 [facility] Monocytes/100 WBC Auto (Bld) Ordered By: Merry Davies on 01-19-2024 Monocytes/100 WBC (Bld) 7.0 % . [facility] Natriuretic peptide B [Mass/ Vol]Ordered By: Merry Davies on 01-19-2024 Natriuretic peptide B (Bld) [Mass/Vol] 125.0 pg/mL High 5-100 [facility] Neutrophils Auto (Bld) [#/Vo l]Ordered By: Merry Davies on 01-19-2024 Neutrophils (Bld) [#/Vol] 9.3 10*3/uL 1.8-7.7 [facility] Neutrophils/100 WBC Auto (Bl d)Ordered By: Merry Davies on 01-19-2024 Neutrophils/100 WBC (Bld) 83.8 % . [facility] Nitrite Test strip Ql (U)Ord ered By: Merry Davies on 01-19-2024 Nitrite Ql (U) Negative Negative [facility] No Panel InformationOrdered By: Merry Davies on 01-19-2024 Estimated GFR (CKD-EPI) 20.051 mL/Min [facility] Creatinine Clearance (Chem 22.52 [facility] Nucleated erythrocytes [Pres ence] in Blood by Automated countOrdered By: Merry Davies on 01-19-2024 Nucleated RBC Auto Ql (Bld) 0.0 /100{WBC} 0-0.5 [facility] Platelet mean volume Auto (B ld) [Entitic vol]Ordered By: Merry Davies on 01-19-2024 Platelet mean volume (Bld) [Entitic vol] 8.0 fL 6.6-10.1 [facility] Platelets Auto (Bld) [#/Vol] Ordered By: Merry Davies on 01-19-2024 Platelets (Bld) [#/Vol] 181 10*3/uL 150-450 [facility] Potassium [Moles/volume] in Serum or PlasmaOrdered By: Merry Davies on 01-19-2024 Potassium [Moles/Vol] 4.4 mmol/L 3.5-5.1 [facility] Protein Test strip (U) [Mass /Vol]Ordered By: Merry Davies on 01-19-2024 Protein (U) [Mass/Vol] 200 mg/dL High Negative [facility] Protein [Mass/volume] in Ser um or PlasmaOrdered By: Merry Davies on 01-19-2024 Protein [Mass/Vol] 6.4 g/dL 6.4-8.9 [facility] Prothrombin time (PT)Ordered By: Merry Davies on 01-19-2024 PT Coag (PPP) [Time] 15.2 s High 9.0-12.9 [facility] Comment on above: A hematocrit value g reater than 55% may lead to inaccurate results in coagulation testing. Patients having hematocrit values >55% require a special collection tube for coagulation studies. Please contact the laboratory at [phone] for redraw instructions. RBC Auto (Bld) [#/Vol]Ordere d By: Merry Davies on 01-19-2024 RBC (Bld) [#/Vol] 2.35 10*6/uL 3.90-5.60 [facility] Serum or plasma albumin/glob ulin mass ratioOrdered By: Merry Davies on 01-19-2024 Albumin/Globulin [Mass ratio] 1.1 {ratio} [facility] Serum or plasma anion gap de terminationOrdered By: Merry Davies on 01-19-2024 Anion gap [Moles/Vol] 13.1 mmol/L 6.0-15.0 [facility] Sodium [Moles/volume] in Ser um or PlasmaOrdered By: Merry Davies on 01-19-2024 Sodium [Moles/Vol] 133 mmol/L 136-145 [facility] Specific gravity Test strip (U) [Rel density]Ordered By: Merry Davies on 01-19-2024 Specific gravity (U) [Rel density] 1.013 1.001-1.03 0 [facility] Thyrotropin [Units/volume] i n Serum or PlasmaOrdered By: Merry Davies on 01-19-2024 TSH Qn 0.17 m[IU]/L Low 0.45-5.33 [facility] Thyroxine (T4) free [Mass/vo lume] in Serum or PlasmaOrdered By: Merry Davies on 01-19-2024 Free T4 [Mass/Vol] 0.89 ng/dL 0.61-1.12 [facility] Troponin I.cardiac [Mass/vol ume] in Serum or Plasma by Detection limit <= 0.01 ng/Ordered By: Merry Davies on 01-19-2024 Troponin I.cardiac DL <= 0.01 ng/mL [Mass/Vol] 10.8 pg/mL 0.0-20.0 [facility] Urea nitrogen [Mass/volume] in Serum or PlasmaOrdered By: Merry Davies on 01-19-2024 Urea nitrogen [Mass/Vol] 47 mg/dL 7-25 [facility] Urine appearanceOrdered By: Merry Davies on 01-19-2024 Appearance (U) Turbid Abnormal Clear [facility] Urine culture routineOrdered By: Merry Davies on 01-19-2024 Bacteria identified Cx Nom (U) Klebsiella oxytoca Abnormal [facility] Urobilinogen Test strip (U) [Mass/Vol]Ordered By: Merry Davies on 01-19-2024 Urobilinogen (U) [Mass/Vol] Normal mg/dL Normal [facility] WBC Auto (Bld) [#/Vol]Ordere d By: Merry Davies on 01-19-2024 WBC (Bld) [#/Vol] 11.1 10*3/uL 4.1-10.5 [facility] pH Test strip (U)Ordered By: Merry Davies on 01-19-2024 pH (U) 6.0 [pH] 5.0-9.0 [facility] Ambulatory Visit Summaryon 0 01-18-2024 Ambulatory Visit [...] What to do next Scheduled Follow-Up Appointments 2023 10:15 AM EDT With: Diego RICKS, Orquidea Taylor Where: [facility] C Urineon 01-10-2024 Bacteria identified Cx Nom (U) [...] This test was performed at: [facility], [address] [place] [address], [facility] , , [facility] Comment on above: Performed By: #### [id number] #### [facility] [address] [place] [id number] Bacteria identified Cx Nom (U) Microbiology PROCEDURE: [...] This test was performed at: [facility], [address] [place] [address], [id number]- , [place], [facility] Comment on above: Performed By: #### [id number] #### [facility] [address] [place] [id number] Urineon 12-11-2023 Bacteria identified Cx Nom (U) [...] This test was performed at: [facility], [address] [place] [address], [id number]- , [place], Normal [facility] Comment on above: Performed By: #### [id number] #### [facility] [address] [place] [id number] Alanine aminotransferase [En zymatic activity/volume] in Serum or PlasmaOrdered By: Helen Heath on 11-04-2023 ALT [Catalytic activity/Vol] 15 U/L 7-52 [facility] Albumin [Mass/volume] in Ser um or Plasma by Bromocresol green (BCG) dye binding methoOrdered By: Helen Heath on 11-04-2023 Albumin BCG dye [Mass/Vol] 4.1 g/dL 3.5-5.7 [facility] Alkaline phosphatase [Enzyma tic activity/volume] in Serum or PlasmaOrdered By: Helen Heath on 11-04-2023 ALP [Catalytic activity/Vol] 85 U/L 34-104 [facility] Aspartate aminotransferase [ Enzymatic activity/volume] in Serum or PlasmaOrdered By: Helen Heath on 11-04-2023 AST [Catalytic activity/Vol] 17 U/L 13-39 [facility] Basophils Auto (Bld) [#/Vol] Ordered By: Helen Heath on 11-04-2023 Basophils (Bld) [#/Vol] 0.0 10*3/uL 0.0-0.2 [facility] Basophils/100 WBC Auto (Bld) Ordered By: Helen Heath on 11-04-2023 Basophils/100 WBC (Bld) 0.3 % . [facility] Bilirubin.total [Mass/volume ] in Serum or PlasmaOrdered By: Helen Heath on 11-04-2023 Bilirubin [Mass/Vol] 0.3 mg/dL 0.3-1.0 [facility] Calcium [Mass/volume] in Ser um or PlasmaOrdered By: Helen Heath on 11-04-2023 Calcium [Mass/Vol] 9.3 mg/dL 8.6-10.3 [facility] Carbon dioxide, total [Moles /volume] in Serum or PlasmaOrdered By: Helen Heath on 11-04-2023 CO2 [Moles/Vol] 25.5 mmol/L 21.0-31.0 [facility] Chloride [Moles/volume] in S valeria or PlasmaOrdered By: Helen Heath on 11-04-2023 Chloride [Moles/Vol] 109 mmol/L 98-107 [facility] Cholesterol [Mass/volume] in Serum or PlasmaOrdered By: Helen Heath on 11-04-2023 Cholesterol [Mass/Vol] 128 mg/dL 140-200 [facility] Comment on above: Chol less than 200 m g/dl low riskChol 201-239 mg/dl borderline riskChol 240 mg/dl and greater high risk Cholesterol in LDL Calc [Mas s/Vol]Ordered By: Helen Heath on 11-04-2023 Cholesterol in LDL [Mass/Vol] 71 mg/dL 0-100 [facility] Comment on above: LDL ATP III CLASSIFI CATIONLDL less than 100 mg/dL OptimalLDL 100-129 mg/dL Near or above optimalLDL 130-159 mg/dL Borderline highLDL 160-189 mg/dL HighLDL greater than 189 mg/dL Very high Cholesterol in VLDL Calc [Ma ss/Vol]Ordered By: Helen Heath on 11-04-2023 Cholesterol in VLDL [Mass/Vol] 19 mg/dL [facility] Creatinine [Mass/volume] in Serum or PlasmaOrdered By: Helen Heath on 11-04-2023 Creatinine [Mass/Vol] 1.87 mg/dL 0.70-1.30 [facility] Creatinine [Mass/volume] in UrineOrdered By: Helen Heath on 11-04-2023 Creatinine (U) [Mass/Vol] 116.0 mg/dL 14.0-26.0 [facility] Eosinophils Auto (Bld) [#/Vo l]Ordered By: Helen Heath on 11-04-2023 Eosinophils (Bld) [#/Vol] 0.3 10*3/uL 0.0-0.45 [facility] Eosinophils/100 WBC Auto (Bl d)Ordered By: Helen Heath on 11-04-2023 Eosinophils/100 WBC (Bld) 3.4 % . [facility] Erythrocyte distribution wid th Auto (RBC) [Ratio]Ordered By: Helen Heath on 11-04-2023 Erythrocyte distribution width (RBC) [Ratio] 16.5 % 12.0-14.8 [facility] Globulin Calc (S) [Mass/Vol] Ordered By: Helen Heath on 11-04-2023 Globulin (S) [Mass/Vol] 2.5 g/dL [facility] Glucose [Mass/volume] in Ser um or PlasmaOrdered By: Helen Heath on 11-04-2023 Glucose [Mass/Vol] 105 mg/dL 70-100 [facility] Comment on above: ADA recommended refe rence rangeRandom Glucose Reference Range is dependent on time and content of last meal. Glucose of more than 200 mg/dL in a nonstressed, ambulatory subject supports the diagnosis of Diabetes Mellitus. Hematocrit Auto (Bld) [Volum e fraction]Ordered By: Helen Heath on 11-04-2023 Hematocrit (Bld) [Volume fraction] 31.7 % 38.8-50.0 [facility] Hemoglobin [Mass/volume] in BloodOrdered By: Helen Heath on 11-04-2023 Hemoglobin (Bld) [Mass/Vol] 10.3 g/dL 13.0-17.0 [facility] Leukocytes [#/volume] correc lizbet for nucleated erythrocytes in Blood by Automated counOrdered By: Helen Heath on 11-04-2023 WBC corrected for nucl RBC Auto (Bld) [#/Vol] 7.6 10*3/uL 4.1-10.5 [facility] Lymphocytes Auto (Bld) [#/Vo l]Ordered By: Helen Heath on 11-04-2023 Lymphocytes (Bld) [#/Vol] 1.0 10*3/uL 1.00-4.8 [facility] Lymphocytes/100 WBC Auto (Bl d)Ordered By: Helen Heath on 11-04-2023 Lymphocytes/100 WBC (Bld) 12.9 % . [facility] MCH Auto (RBC) [Entitic mass ]Ordered By: Helen Heath on 11-04-2023 MCH (RBC) [Entitic mass] 35.2 pg 27.5-35.2 [facility] MCHC Auto (RBC) [Mass/Vol]Or dered By: Helen Heath on 11-04-2023 MCHC (RBC) [Mass/Vol] 32.6 g/dL 32.5-35.6 [facility] MCV Auto (RBC) [Entitic vol] Ordered By: Helen Heath on 11-04-2023 MCV (RBC) [Entitic vol] 107.9 fL 83.5-101 [facility] Microalbumin [Mass/volume] i n UrineOrdered By: Helen Heath on 11-04-2023 Albumin DL <= 20 mg/L (U) [Mass/Vol] mg/dL 0.0-1.8 [facility] Monocytes Auto (Bld) [#/Vol] Ordered By: Helen Heath on 11-04-2023 Monocytes (Bld) [#/Vol] 0.5 10*3/uL 0.0-0.8 [facility] Monocytes/100 WBC Auto (Bld) Ordered By: Helen Heath on 11-04-2023 Monocytes/100 WBC (Bld) 6.6 % . [facility] Neutrophils Auto (Bld) [#/Vo l]Ordered By: Helen Heath on 11-04-2023 Neutrophils (Bld) [#/Vol] 5.8 10*3/uL 1.8-7.7 [facility] Neutrophils/100 WBC Auto (Bl d)Ordered By: Helen Heath on 11-04-2023 Neutrophils/100 WBC (Bld) 76.8 % . [facility] No Panel InformationOrdered By: Helen Heath on 11-04-2023 Estimated GFR (CKD-EPI) 36.349 mL/Min [facility] Creatinine Clearance (Chem N/A [facility] Nucleated erythrocytes [Pres ence] in Blood by Automated countOrdered By: Helen Heath on 11-04-2023 Nucleated RBC Auto Ql (Bld) 0.1 /100{WBC} 0-0.5 [facility] Platelet mean volume Auto (B ld) [Entitic vol]Ordered By: Helen Heath on 11-04-2023 Platelet mean volume (Bld) [Entitic vol] 7.8 fL 6.6-10.1 [facility] Platelets Auto (Bld) [#/Vol] Ordered By: Helen Heath on 11-04-2023 Platelets (Bld) [#/Vol] 189 10*3/uL 150-450 [facility] Potassium [Moles/volume] in Serum or PlasmaOrdered By: Helen Heath on 11-04-2023 Potassium [Moles/Vol] 4.7 mmol/L 3.5-5.1 [facility] Protein [Mass/volume] in Ser um or PlasmaOrdered By: Helen Heath on 11-04-2023 Protein [Mass/Vol] 6.6 g/dL 6.4-8.9 [facility] RBC Auto (Bld) [#/Vol]Ordere d By: Helen Heath on 11-04-2023 RBC (Bld) [#/Vol] 2.94 10*6/uL 3.90-5.60 [facility] Serum or plasma albumin/glob ulin mass ratioOrdered By: Helen Heath on 11-04-2023 Albumin/Globulin [Mass ratio] 1.6 {ratio} [facility] Serum or plasma anion gap de terminationOrdered By: Helen Heath on 11-04-2023 Anion gap [Moles/Vol] 9.2 mmol/L 6.0-15.0 [facility] Serum or plasma high density lipoprotein (HDL) cholesterol measurementOrdered By: Helen Heath on 11-04-2023 Cholesterol in HDL [Mass/Vol] 38 mg/dL 23-92 [facility] Comment on above: HDL CHOL ATP-III CLA SSIFICATION Cardiovascular RiskHDL > or equal to 60 mg/dL LOWHDL < 40 mg/dL HIGH Serum or plasma total choles terol/high density lipoprotein (HDL) cholesterol mass ratOrdered By: Helen Heath on 11-04-2023 Cholesterol.total/[place] sterol in HDL [Mass ratio] 3.4 {ratio} <5.0 [facility] Sodium [Moles/volume] in Ser um or PlasmaOrdered By: Helen Heath on 11-04-2023 Sodium [Moles/Vol] 139 mmol/L 136-145 [facility] Thyrotropin [Units/volume] i n Serum or PlasmaOrdered By: Helen Heath on 11-04-2023 TSH Qn 0.54 m[IU]/L 0.45-5.33 [facility] Thyroxine (T4) free [Mass/vo lume] in Serum or PlasmaOrdered By: Helen Heath on 11-04-2023 Free T4 [Mass/Vol] 0.85 ng/dL 0.61-1.12 [facility] Triglyceride [Mass/volume] i n Serum or PlasmaOrdered By: Helen Heath on 11-04-2023 Triglyceride [Mass/Vol] 97 mg/dL 0-149 [facility] Comment on above: TRIG ATP III CLASSIF ICATIONTRIG less than 150 mg/dL NormalTRIG 150-199 mg/dL Borderline highTRIG 200-500 mg/dL High TRIG greater than 500 mg/dL Very highStandard traceable to the Center for Disease Conrtrol and Prevention (CDC) test method. Urea nitrogen [Mass/volume] in Serum or PlasmaOrdered By: Helen Heath on 11-04-2023 Urea nitrogen [Mass/Vol] 30 mg/dL 7-25 [facility] Urine microalbumin/creatinin e mass ratioOrdered By: Helen Heath on 11-04-2023 Albumin/Creatinine DL <= 20 mg/L (U) [Mass ratio] TNP [facility] Comment on above: Test not performed Vitamin D+Metabolites [Mass/ volume] in Serum or PlasmaOrdered By: Helen Heath on 11-04-2023 Vitamin D+Metabolites [Mass/Vol] 61.8 ng/mL 30-100 [facility] Comment on above: VITAMIN D STATUS 25( [place])VITAMIN D RANGE (ng/mL) Deficient <20 Insufficient 20 to <30Sufficient 30 to 100Reference: Dieudonne MF,Brendon NC, Estrella CARTER, et al. Evaluation,treatment, and prevention of vitamin D deficiency; an Endocrine Society clinical practice guideline. JCEM. 2010; 96(7):1911-30. WBC Auto (Bld) [#/Vol]Ordere d By: Helen Heath on 11-04-2023 WBC (Bld) [#/Vol] 7.6 10*3/uL 4.1-10.5 [facility] Interpretation of 24 hour ur ine protein electrophoresis pattern (narrative result)Ordered By: Price Crain on 10-26-2023 Protein Fractions Elph Dickson (24H U) [Interp] N/A [facility] light chains.free [Mas s/volume] in UrineOrdered By: Price Crain on 10-26-2023 Immunoglobulin light chains.kappa.free (U) [Mass/Vol] 98.10 mg/L 1.17-86.46 [facility] light chains.free/[place] da light chains.free [Mass Ratio] in UrineOrdered By: Price Crain on 10-26-2023 Immunoglobulin light chains.kappa.free/Immun oglobulin light chains.lambda.free (U) [Mass ratio] 4.63 1.83-14.26 [facility] Comment on above: Performed at: - [address] [id number] Director: Aliya Curtis MD, Phone: [phone] Lambda light chains.free [Ma ss/volume] in UrineOrdered By: Price Crain on 10-26-2023 Immunoglobulin light chains.lambda.free (U) [Mass/Vol] 21.19 mg/L 0.27-15.21 [facility] No Panel InformationOrdered By: Price Crain on 10-26-2023 Urine Albumin 24 Hours 44.8 % . [facility] Urine Qjjgo-6-Lrwhkvee 1.0 % . [facility] Urine Fetzs-7-Jjtpvyroy 13.2 % . [facility] Urine Beta Globulin 20.3 % . [facility] Urine Gamma Globulin 20.7 % . [facility] Urine IEP M-Anselmo % 24 Hr Comment: % Not Observed [facility] Comment on above: UPE shows an asymmet rical gamma. Urine Random Prot Electrophor Note See comment . [facility] Comment on above: Protein electrophore sis scan will follow via computer,mail, or technical documentation specialist delivery.Performed at: - [address] [id number] Director: Melchor Agrawal PhD, Phone: [phone] Protein [Mass/time] in 24 ho ur UrineOrdered By: Price Crain on 10-26-2023 Protein (24H U) [Mass/Time] 1760 mg/24 hr 30-150 [facility] Protein [Mass/volume] in Uri neOrdered By: Price Crain on 10-26-2023 Protein (U) [Mass/Vol] 117.3 mg/dL Not Estab. [facility] Protein.monoclonal [Mass/amalia e] in 24 hour Urine by ElectrophoresisOrdered By: Price Crain on 10-26-2023 Protein.monoclonal Elph (24H U) [Mass/Time] N/A [facility] Alanine aminotransferase [En zymatic activity/volume] in Serum or PlasmaOrdered By: Price Crain on 10-22-2023 ALT [Catalytic activity/Vol] 15 U/L 7-52 [facility] Albumin [Mass/volume] in Ser um or Plasma by Bromocresol green (BCG) dye binding methoOrdered By: Price Crain on 10-22-2023 Albumin BCG dye [Mass/Vol] 3.9 g/dL 3.5-5.7 [facility] Alkaline phosphatase [Enzyma tic activity/volume] in Serum or PlasmaOrdered By: Price Crain on 10-22-2023 ALP [Catalytic activity/Vol] 85 U/L 34-104 [facility] Aspartate aminotransferase [ Enzymatic activity/volume] in Serum or PlasmaOrdered By: Price Crain on 10-22-2023 AST [Catalytic activity/Vol] 16 U/L 13-39 [facility] Bilirubin.total [Mass/volume ] in Serum or PlasmaOrdered By: Price Crain on 10-22-2023 Bilirubin [Mass/Vol] 0.4 mg/dL 0.3-1.0 [facility] Calcium [Mass/volume] in Ser um or PlasmaOrdered By: Price Crain on 10-22-2023 Calcium [Mass/Vol] 9.0 mg/dL 8.6-10.3 [facility] Carbon dioxide, total [Moles /volume] in Serum or PlasmaOrdered By: Price Crain on 10-22-2023 CO2 [Moles/Vol] 25.0 mmol/L 21.0-31.0 [facility] Chloride [Moles/volume] in S valeria or PlasmaOrdered By: Price Crain on 10-22-2023 Chloride [Moles/Vol] 109 mmol/L 98-107 [facility] Creatinine [Mass/volume] in Serum or PlasmaOrdered By: Price Crain on 10-22-2023 Creatinine [Mass/Vol] 1.91 mg/dL 0.70-1.30 [facility] Erythrocyte distribution wid th Auto (RBC) [Ratio]Ordered By: Price Crain on 10-22-2023 Erythrocyte distribution width (RBC) [Ratio] 16.5 % 12.0-14.8 [facility] Globulin Calc (S) [Mass/Vol] Ordered By: Price Crain on 10-22-2023 Globulin (S) [Mass/Vol] 2.4 g/dL [facility] Glucose [Mass/volume] in Ser um or PlasmaOrdered By: Price Crain on 10-22-2023 Glucose [Mass/Vol] 70 mg/dL 70-100 [facility] Comment on above: ADA recommended refe rence rangeRandom Glucose Reference Range is dependent on time and content of last meal. Glucose of more than 200 mg/dL in a nonstressed, ambulatory subject supports the diagnosis of Diabetes Mellitus. Hematocrit Auto (Bld) [Volum e fraction]Ordered By: Price Crain on 10-22-2023 Hematocrit (Bld) [Volume fraction] 29.4 % 38.8-50.0 [facility] Hemoglobin [Mass/volume] in BloodOrdered By: Price Crain on 10-22-2023 Hemoglobin (Bld) [Mass/Vol] 9.8 g/dL 13.0-17.0 [facility] Immunofixation for UrineOrde red By: Price Crain on 10-22-2023 Interpretation Immunofixation (U) [Interp] See comment . [facility] Comment on above: Immunofixation shows IgG monoclonal protein with kappalight chain specificity.Performed at: [facility] [id number] [place], [place] [id number] Director: Melchor Agrawal PhD, Phone: [phone] Leukocytes [#/volume] correc lizbet for nucleated erythrocytes in Blood by Automated counOrdered By: Price Crain on 10-22-2023 WBC corrected for nucl RBC Auto (Bld) [#/Vol] 7.4 10*3/uL 4.1-10.5 [facility] MCH Auto (RBC) [Entitic mass ]Ordered By: Price Crain on 10-22-2023 MCH (RBC) [Entitic mass] 35.9 pg 27.5-35.2 [facility] MCHC Auto (RBC) [Mass/Vol]Or dered By: Price Crain on 10-22-2023 MCHC (RBC) [Mass/Vol] 33.4 g/dL 32.5-35.6 [facility] MCV Auto (RBC) [Entitic vol] Ordered By: Price Crain on 10-22-2023 MCV (RBC) [Entitic vol] 107.6 fL 83.5-101 [facility] [facility] Magnesium [Mass/volume] in S valeria or PlasmaOrdered By: Price Crain on 10-22-2023 Magnesium [Mass/Vol] 1.9 mg/dL 1.9-2.7 [facility] Magnesium [Mass/Vol] Magnesium [Mass/vol ume] in Serum or Plasma 1.9-2.7 [facility] No Panel InformationOrdered By: Price Crain on 10-22-2023 Estimated GFR (CKD-EPI) 35.437 mL/Min [facility] Creatinine Clearance (Chem 37.47 [facility] Parathyrin.intact [Mass/volu me] in Serum or PlasmaOrdered By: Price Crain on 10-22-2023 Parathyrin.intact [Mass/Vol] 44.7 pg/mL [facility] Parathyrin.intact [Mass/Vol] Parathyrin.intact [Mass/volume] in Serum or Plasma [facility] Phosphate [Mass/volume] in S valeria or PlasmaOrdered By: Price Crain on 10-22-2023 Phosphate [Mass/Vol] 3.1 mg/dL 2.5-4.5 [facility] Phosphate [Mass/Vol] Phosphate [Mass/vol ume] in Serum or Plasma 2.5-4.5 [facility] Platelet mean volume Auto (B ld) [Entitic vol]Ordered By: Price Crain on 10-22-2023 Platelet mean volume (Bld) [Entitic vol] 7.8 fL 6.6-10.1 [facility] Platelets Auto (Bld) [#/Vol] Ordered By: Price Crain on 10-22-2023 Platelets (Bld) [#/Vol] 172 10*3/uL 150-450 [facility] Potassium [Moles/volume] in Serum or PlasmaOrdered By: Price Crain on 10-22-2023 Potassium [Moles/Vol] 4.4 mmol/L 3.5-5.1 [facility] Protein [Mass/volume] in Ser um or PlasmaOrdered By: Price Crain on 10-22-2023 Protein [Mass/Vol] 6.3 g/dL 6.4-8.9 [facility] RBC Auto (Bld) [#/Vol]Ordere d By: Price Crain on 10-22-2023 RBC (Bld) [#/Vol] 2.73 10*6/uL 3.90-5.60 [facility] Serum or plasma albumin/glob ulin mass ratioOrdered By: Price Crain on 10-22-2023 Albumin/Globulin [Mass ratio] 1.6 {ratio} [facility] Serum or plasma anion gap de terminationOrdered By: Price Crain on 10-22-2023 Anion gap [Moles/Vol] 9.4 mmol/L 6.0-15.0 [facility] Sodium [Moles/volume] in Ser um or PlasmaOrdered By: Price Crain on 10-22-2023 Sodium [Moles/Vol] 139 mmol/L 136-145 [facility] Urate [Mass/volume] in Serum or PlasmaOrdered By: Price Crain on 10-22-2023 Urate [Mass/Vol] 4.7 mg/dL 4.4-7.6 [facility] Urate [Mass/Vol] Urate [Mass/volume] in Serum or Plasma 4.4-7.6 [facility] Urea nitrogen [Mass/volume] in Serum or PlasmaOrdered By: Price Crain on 10-22-2023 Urea nitrogen [Mass/Vol] 29 mg/dL 7-25 [facility] Vitamin D+Metabolites [Mass/ volume] in Serum or PlasmaOrdered By: Price Crain on 10-22-2023 Vitamin D+Metabolites [Mass/Vol] 61.4 ng/mL 30-100 [facility] Comment on above: VITAMIN D STATUS 25( [place])VITAMIN D RANGE (ng/mL) Deficient <20 Insufficient 20 to <30Sufficient 30 to 100Reference: Brendon Daniel, Estrella CARTER, et al. Evaluation,treatment, and prevention of vitamin D deficiency; an Endocrine Society clinical practice guideline. JCEM. 2010; 96(7):1911-30. Vitamin D+Metabolites [Mass/Vol] Vitamin D+Metabolites [Mass/volume] in Serum or Plasma 30-100 [facility] Comment on above: VITAMIN D STATUS 25( [place])VITAMIN D RANGE (ng/mL) Deficient <20 Insufficient 20 to <30Sufficient 30 to 100Reference: Brendon Daniel, Estrella CARTER, et al. Evaluation,treatment, and prevention of vitamin D deficiency; an Endocrine Society clinical practice guideline. JCEM. 2010; 96(7):1911-30. Albumin [Mass/volume] in Ser um or PlasmaOrdered By: Brook Huddleston on 10-08-2023 Albumin [Mass/Vol] 3.6 g/dL 2.9-4.4 [facility] Albumin/Protein.total in 24 hour Urine by ElectrophoresisOrdered By: Brook Huddleston on 10-08-2023 Albumin Elph (24H U) [Mass fraction] 47.1 % . [facility] Basophils Auto (Bld) [#/Vol] Ordered By: Brook Huddleston on 10-08-2023 Basophils (Bld) [#/Vol] 0.0 10*3/uL 0.0-0.2 [facility] Basophils/100 WBC Auto (Bld) Ordered By: Brook Huddleston on 10-08-2023 Basophils/100 WBC (Bld) 0.2 % . [facility] Eosinophils Auto (Bld) [#/Vo l]Ordered By: Brook Huddleston on 10-08-2023 Eosinophils (Bld) [#/Vol] 0.4 10*3/uL 0.0-0.45 [facility] Eosinophils/100 WBC Auto (Bl d)Ordered By: Brook Huddleston on 10-08-2023 Eosinophils/100 WBC (Bld) 6.1 % . [facility] Ferritin [Mass/volume] in Se rum or PlasmaOrdered By: Brook Huddleston on 10-08-2023 Ferritin [Mass/Vol] 175.4 ng/mL 23.9-336.2 [facility] Ferritin [Mass/Vol] Ferritin [Mass/volum e] in Serum or Plasma 23.9-336.2 [facility] Gamma globulin/Protein.total in 24 hour Urine by ElectrophoresisOrdered By: Brook Huddleston on 10-08-2023 Gamma globulin Elph (24H U) [Mass fraction] 13.6 % . [facility] IgA [Mass/volume] in Serum o r PlasmaOrdered By: Brook Huddleston on 10-08-2023 IgA [Mass/Vol] 165 mg/dL 61-437 [facility] IgG [Mass/volume] in Serum o r PlasmaOrdered By: Brook Huddleston on 10-08-2023 IgG [Mass/Vol] 881 mg/dL 603-1613 [facility] IgM [Mass/volume] in Serum o r PlasmaOrdered By: Brook Huddleston on 10-08-2023 IgM [Mass/Vol] 63 mg/dL 15-143 [facility] Comment on above: Performed at: [address] [id number] Director: Melchor Agrawal PhD, Phone: [phone] Immunoglobulin light chains. kappa.free [Mass/volume] in SerumOrdered By: Brook Huddleston on 10-08-2023 Immunoglobulin light chains.kappa.free (S) [Mass/Vol] 44.9 mg/L 3.3-19.4 [facility] Immunoglobulin light chains. kappa.free/Immunoglobulin light chains.lambda.free [MassOrdered By: Brook Huddleston on 10-08-2023 Immunoglobulin light chains.kappa.free/Immun oglobulin light chains.lambda.free (S) [Mass ratio] 1.61 0.26-1.65 [facility] Comment on above: Performed at: [address] [id number] Director: Melchor Agrawal PhD, Phone: [phone] Immunoglobulin light chains. lambda.free [Mass/volume] in Serum or PlasmaOrdered By: Brook Huddleston on 10-08-2023 Immunoglobulin light chains.lambda.free [Mass/Vol] 27.9 mg/L 5.7-26.3 [facility] Iron [Mass/volume] in Serum or PlasmaOrdered By: Brook Huddleston on 10-08-2023 Iron [Mass/Vol] 82 ug/dL 50-212 [facility] Iron [Mass/Vol] Iron [Mass/volume] i n Serum or Plasma 50-212 [facility] Iron binding capacity [Mass/ volume] in Serum or PlasmaOrdered By: Brook Huddleston on 10-08-2023 Iron binding capacity [Mass/Vol] 235 ug/dL Low 255-450 [facility] Iron saturation [Mass Fracti on] in Serum or PlasmaOrdered By: Brook Huddleston on 10-08-2023 Iron saturation [Mass fraction] 34.9 % 20-50 [facility] Lactate dehydrogenase [Enzym atic activity/volume] in Serum or Plasma by Lactate to pyOrdered By: Brook Huddleston on 10-08-2023 LDH Lactate to pyruvate reaction [Catalytic activity/Vol] 150 U/L 140-271 [facility] Lymphocytes Auto (Bld) [#/Vo l]Ordered By: Brook Huddleston on 10-08-2023 Lymphocytes (Bld) [#/Vol] 0.9 10*3/uL 1.00-4.8 [facility] Lymphocytes/100 WBC Auto (Bl d)Ordered By: Brook Huddleston on 10-08-2023 Lymphocytes/100 WBC (Bld) 13.1 % . [facility] Monocytes Auto (Bld) [#/Vol] Ordered By: Brook Huddleston on 10-08-2023 Monocytes (Bld) [#/Vol] 0.3 10*3/uL 0.0-0.8 [facility] Monocytes/100 WBC Auto (Bld) Ordered By: Brook Huddleston on 10-08-2023 Monocytes/100 WBC (Bld) 4.5 % . [facility] Neutrophils Auto (Bld) [#/Vo l]Ordered By: Brook Huddleston on 10-08-2023 Neutrophils (Bld) [#/Vol] 5.0 10*3/uL 1.8-7.7 [facility] Neutrophils/100 WBC Auto (Bl d)Ordered By: Brook Huddleston on 10-08-2023 Neutrophils/100 WBC (Bld) 76.1 % . [facility] No Panel InformationOrdered By: Brook Huddleston on 10-08-2023 Protein Electrophoresis M-Anselmo Not observed g/dL Not Observed [facility] Protein Electrophoresis Note See comment . [facility] Comment on above: Protein electrophore sis scan will follow via computer,mail, or technical documentation specialist delivery.Performed at: [address] Director: Melchor Agrawal PhD, Phone: [phone] Urine Random Prot Electrophor Note See comment . [facility] Comment on above: Protein electrophore sis scan will follow via computer,mail, or technical documentation specialist delivery. Nucleated erythrocytes [Pres ence] in Blood by Automated countOrdered By: Brook Huddleston on 10-08-2023 Nucleated RBC Auto Ql (Bld) 0.0 /100{WBC} 0-0.5 [facility] Protein [Mass/volume] in Ser um or PlasmaOrdered By: Brook Huddleston on 10-08-2023 Protein [Mass/Vol] 6.5 g/dL 6.0-8.5 [facility] Protein [Mass/volume] in Uri neOrdered By: Brook Huddleston on 10-08-2023 Protein (U) [Mass/Vol] 302.5 mg/dL Not Estab. [facility] Comment on above: Results confirmed on dilution. Protein.monoclonal/Protein.t otal in 24 hour Urine by ElectrophoresisOrdered By: Brook Huddleston on 10-08-2023 Protein.monoclonal Elph (24H U) [Mass fraction] Comment: % Not Observed [facility] Comment on above: UPE shows an asymmet rical gamma. Serum globulin measurement ( mass/volume)Ordered By: Brook Huddleston on 10-08-2023 Globulin (S) [Mass/Vol] 2.9 g/dL 2.2-3.9 [facility] Serum or plasma albumin/glob ulin mass ratioOrdered By: Brook Huddleston on 10-08-2023 Albumin/Globulin [Mass ratio] 1.2 {ratio} 0.7-1.7 [facility] Serum or plasma alpha 1 glob ulin measurement by electrophoresis (mass/volume)Ordered By: Brook Huddleston on 10-08-2023 Alpha 1 globulin Elph [Mass/Vol] 0.3 g/dL 0.0-0.4 [facility] Serum or plasma alpha 2 glob ulin measurement by electrophoresis (mass/volume)Ordered By: Brook Huddleston on 10-08-2023 Alpha 2 globulin Elph [Mass/Vol] 0.9 g/dL 0.4-1.0 [facility] Serum or plasma beta globuli n measurement by electrophoresis (mass/volume)Ordered By: Brook Huddleston on 10-08-2023 Beta globulin Elph [Mass/Vol] 0.8 g/dL 0.7-1.3 [facility] Serum or plasma gamma globul in measurement by electrophoresis (mass/volume)Ordered By: Brook Huddleston on 10-08-2023 Gamma globulin Elph [Mass/Vol] 0.9 g/dL 0.4-1.8 [facility] Serum or plasma iron binding capacity measurement (mass/volume)Ordered By: Brook Huddleston on 10-08-2023 Iron binding capacity [Mass/Vol] Iron binding capacity [Mass/volume] in Serum or Plasma Low 255-450 [facility] Serum or plasma iron saturat ion measurement (mass fraction)Ordered By: Brook Huddleston on 10-08-2023 Iron saturation [Mass fraction] Iron saturation [Mass Fraction] in Serum or Plasma 20-50 [facility] Serum or plasma methylmalona te measurement (moles/volume)Ordered By: Brook Huddleston on 10-08-2023 Methylmalonate [Moles/Vol] 402 nmol/L 0-378 [facility] Comment on above: This test was develo ped and its performance characteristicsdetermined by [facility]. It has not been cleared orapproved by the Food and Drug Administration.Performed at: [address] [id number] Director: Aliya Curtis MD, Phone: [phone] Transferrin [Mass/volume] in Serum or PlasmaOrdered By: Brook Huddleston on 10-08-2023 Transferrin [Mass/Vol] 168 mg/dL Low 203-362 [facility] Transferrin [Mass/Vol] Transferrin [Mass /volume] in Serum or Plasma Low 203-362 [facility] Urine alpha 1 globulin/total protein by electrophoresisOrdered By: Brook Huddleston on 10-08-2023 Alpha 1 globulin Elph (U) [Mass fraction] 4.4 % . [facility] Urine alpha 2 globulin/total protein ratio by electrophoresisOrdered By: Brook Huddleston on 10-08-2023 Alpha 2 globulin Elph (U) [Mass fraction] 11.8 % . [facility] Urine beta globulin measurem ent by electrophoresis (mass/volume)Ordered By: Brook Huddleston on 10-08-2023 Beta globulin Elph (U) [Mass/Vol] 23.1 % . [facility] WBC Auto (Bld) [#/Vol]Ordere d By: Brook Huddleston on 10-08-2023 WBC (Bld) [#/Vol] 6.6 10*3/uL 4.1-10.5 [facility] Alanine aminotransferase [En zymatic activity/volume] in Serum or PlasmaOrdered By: Brook Huddleston on 09-28-2023 ALT [Catalytic activity/Vol] 20 U/L 7-52 [facility] Albumin [Mass/volume] in Ser um or Plasma by Bromocresol green (BCG) dye binding methoOrdered By: Brook Huddleston on 09-28-2023 Albumin BCG dye [Mass/Vol] 3.8 g/dL 3.5-5.7 [facility] Alkaline phosphatase [Enzyma tic activity/volume] in Serum or PlasmaOrdered By: Brook Huddleston on 09-28-2023 ALP [Catalytic activity/Vol] 87 U/L 34-104 [facility] Aspartate aminotransferase [ Enzymatic activity/volume] in Serum or PlasmaOrdered By: Brook Huddleston on 09-28-2023 AST [Catalytic activity/Vol] 17 U/L 13-39 [facility] Basophils Auto (Bld) [#/Vol] Ordered By: Brook Huddleston on 09-28-2023 Basophils (Bld) [#/Vol] 0.0 10*3/uL 0.0-0.2 [facility] Basophils/100 WBC Auto (Bld) Ordered By: Brook Huddleston on 09-28-2023 Basophils/100 WBC (Bld) 0.3 % . [facility] Bilirubin.total [Mass/volume ] in Serum or PlasmaOrdered By: Brook Huddleston on 09-28-2023 Bilirubin [Mass/Vol] 0.4 mg/dL 0.3-1.0 [facility] CBC W Auto Differential pane l (Bld)on 09-28-2023 Basophils (Bld) [#/Vol] 0.0 10*3/uL 0.0 - 0.2 10*3/uL [facility] Basophils/100 WBC Manual cnt (Syn fld) 0.3 % . [facility] Eosinophils (Bld) [#/Vol] 0.2 10*3/uL 0.0 - 0.45 10*3/uL [facility] Eosinophils/100 WBC Manual cnt (Syn fld) 3.7 % . [facility] Erythrocyte distribution width (RBC) [Ratio] 16.9 % High 12.0 - 14.8 % [facility] Hematocrit (Bld) [Volume fraction] 28.8 % Low 38.8 - 50.0 % [facility] Hemoglobin (Bld) [Mass/Vol] 9.7 g/dL Low 13.0 - 17.0 g/dL [facility] Interpretation and review of laboratory results Abnormal [facility] Lymphocytes (Bld) [#/Vol] 0.9 10*3/uL Low 1.00 - 4.8 10*3/uL [facility] Lymphocytes/100 WBC Manual cnt (Syn fld) 14.4 % . [facility] MCH (RBC) [Entitic mass] 36.5 pg High 27.5 - 35.2 pg [facility] MCHC (RBC) [Mass/Vol] 33.8 g/dL 32.5 - 35.6 g/dL [facility] MCV (RBC) [Entitic vol] 107.9 fL High 83.5 - 101 fL [facility] Monocytes (Bld) [#/Vol] 0.4 10*3/uL 0.0 - 0.8 10*3/uL [facility] Monocytes+Macrophages/1 00 WBC Manual cnt (Syn fld) 5.9 % . [facility] Neutrophils (Bld) [#/Vol] 4.9 10*3/uL 1.8 - 7.7 10*3/uL [facility] Neutrophils/100 WBC Manual cnt (Syn fld) 75.7 % . [facility] NRBC 0.1 /100{WBC} 0 - 0.5 /100{WBC} [facility] Platelet mean volume (Bld) [Entitic vol] 7.9 fL 6.6 - 10.1 fL [facility] Platelets (Bld) [#/Vol] 167 10*3/uL 150 - 450 10*3/uL [facility] RBC LM.HPF (Urine sed) [#/Area] 2.67 /[HPF] Low 3.90 - 5.60 [facility] WBC (Bld) [#/Vol] 6.5 10*3/uL 4.1 - 10.5 10*3/uL [facility] WBC LM.HPF (Urine sed) [#/Area] 6.5 10*3/uL 4.1 - 10.5 10*3/uL [facility] Calcium [Mass/volume] in Ser um or PlasmaOrdered By: Brook Huddleston on 09-28-2023 Calcium [Mass/Vol] 8.8 mg/dL 8.6-10.3 [facility] Carbon dioxide, total [Moles /volume] in Serum or PlasmaOrdered By: Brook Huddleston on 09-28-2023 CO2 [Moles/Vol] 25.0 mmol/L 21.0-31.0 [facility] Chloride [Moles/volume] in S valeria or PlasmaOrdered By: Brook Huddleston on 09-28-2023 Chloride [Moles/Vol] 109 mmol/L 98-107 [facility] Comprehensive metabolic pane mana 09-28-2023 Albumin [Mass/Vol] 3.8 g/dL 3.5 - 5.7 g/dL [facility] Albumin/Globulin [Mass ratio] 1.6 {ratio} [facility] ALP [Catalytic activity/Vol] 87 U/L 34 - 104 U/L [facility] ALT [Catalytic activity/Vol] 20 U/L 7 - 52 U/L [facility] Anion gap [Moles/Vol] 10.4 mmol/L 6.0 - 15.0 [facility] AST [Catalytic activity/Vol] 17 U/L 13 - 39 U/L [facility] Bilirubin [Mass/Vol] 0.4 mg/dL 0.3 - 1 .0 mg/dL [facility] Calcium [Mass/Vol] 8.8 mg/dL 8.6 - 10. 3 mg/dL [facility] Chloride [Moles/Vol] 109 mmol/L High 98 - 10 7 mmol/L [facility] CO2 [Moles/Vol] 25.0 mmol/L 21.0 - 31.0 mmol/L [facility] Creatinine (U) [Mass/Vol] 1.74 mg/dL High 0.70 - 1.30 mg/dL [facility] CREATININE CLR CALC PHARMACY 40.89 [facility] GFR/1.73 sq M.predicted MDRD (S/P/Bld) [Vol rate/Area] 39.632 mL/min/{1.73_m2} [facility] Globulin (S) [Mass/Vol] 2.4 g/dL [facility] Glucose [Mass/Vol] 174 mg/dL High 70 - 100 mg/dL [facility] Comment on above: Random Glucose Refer ence Range is dependent on time and content of last meal. Glucose of more than 200 mg/dL in a nonstressed, ambulatory subject supports the diagnosis of Diabetes Mellitus. ADA recommended reference range Interpretation and review of laboratory results Abnormal [facility] Potassium [Moles/Vol] 4.4 mmol/L 3.5 - 5.1 mmol/L [facility] Protein [Mass/Vol] 6.2 g/dL Low 6.4 - 8.9 g/dL [facility] Sodium [Moles/Vol] 140 mmol/L 136 - 145 mmol/L [facility] Urea nitrogen [Mass/Vol] 28 mg/dL High 7 - 25 mg/dL [facility] Creatinine [Mass/volume] in Serum or PlasmaOrdered By: Brook Huddleston on 09-28-2023 Creatinine [Mass/Vol] 1.74 mg/dL 0.70-1.30 [facility] Eosinophils Auto (Bld) [#/Vo l]Ordered By: Brook Huddleston on 09-28-2023 Eosinophils (Bld) [#/Vol] 0.2 10*3/uL 0.0-0.45 [facility] Eosinophils/100 WBC Auto (Bl d)Ordered By: Brook Huddleston on 09-28-2023 Eosinophils/100 WBC (Bld) 3.7 % . [facility] Erythrocyte distribution wid th Auto (RBC) [Ratio]Ordered By: Brook Huddleston on 09-28-2023 Erythrocyte distribution width (RBC) [Ratio] 16.9 % 12.0-14.8 [facility] Globulin Calc (S) [Mass/Vol] Ordered By: Brook Huddleston on 09-28-2023 Globulin (S) [Mass/Vol] 2.4 g/dL [facility] Glucose [Mass/volume] in Ser um or PlasmaOrdered By: Brook Huddleston on 09-28-2023 Glucose [Mass/Vol] 174 mg/dL 70-100 [facility] Comment on above: ADA recommended refe rence rangeRandom Glucose Reference Range is dependent on time and content of last meal. Glucose of more than 200 mg/dL in a nonstressed, ambulatory subject supports the diagnosis of Diabetes Mellitus. Hematocrit Auto (Bld) [Volum e fraction]Ordered By: Brook Huddleston on 09-28-2023 Hematocrit (Bld) [Volume fraction] 28.8 % 38.8-50.0 [facility] Hemoglobin [Mass/volume] in BloodOrdered By: Brook Huddleston on 09-28-2023 Hemoglobin (Bld) [Mass/Vol] 9.7 g/dL 13.0-17.0 [facility] Leukocytes [#/volume] correc lizbet for nucleated erythrocytes in Blood by Automated counOrdered By: Brook Huddleston on 09-28-2023 WBC corrected for nucl RBC Auto (Bld) [#/Vol] 6.5 10*3/uL 4.1-10.5 [facility] Lymphocytes Auto (Bld) [#/Vo l]Ordered By: Brook Huddleston on 09-28-2023 Lymphocytes (Bld) [#/Vol] 0.9 10*3/uL 1.00-4.8 [facility] Lymphocytes/100 WBC Auto (Bl d)Ordered By: Brook Huddleston on 09-28-2023 Lymphocytes/100 WBC (Bld) 14.4 % . [facility] MCH Auto (RBC) [Entitic mass ]Ordered By: Brook Huddleston on 09-28-2023 MCH (RBC) [Entitic mass] 36.5 pg 27.5-35.2 [facility] MCHC Auto (RBC) [Mass/Vol]Or dered By: Brook Huddleston on 09-28-2023 MCHC (RBC) [Mass/Vol] 33.8 g/dL 32.5-35.6 [facility] MCV Auto (RBC) [Entitic vol] Ordered By: Brook Huddleston on 09-28-2023 MCV (RBC) [Entitic vol] 107.9 fL 83.5-101 [facility] Monocytes Auto (Bld) [#/Vol] Ordered By: Brook Huddleston on 09-28-2023 Monocytes (Bld) [#/Vol] 0.4 10*3/uL 0.0-0.8 [facility] Monocytes/100 WBC Auto (Bld) Ordered By: Brook Huddleston on 09-28-2023 Monocytes/100 WBC (Bld) 5.9 % . [facility] Neutrophils Auto (Bld) [#/Vo l]Ordered By: Brook Huddleston on 09-28-2023 Neutrophils (Bld) [#/Vol] 4.9 10*3/uL 1.8-7.7 [facility] Neutrophils/100 WBC Auto (Bl d)Ordered By: Brook Huddleston on 09-28-2023 Neutrophils/100 WBC (Bld) 75.7 % . [facility] No Panel InformationOrdered By: Brook Huddleston on 09-28-2023 Estimated GFR (CKD-EPI) 39.632 mL/Min [facility] Creatinine Clearance (Chem 40.89 [facility] Nucleated erythrocytes [Pres ence] in Blood by Automated countOrdered By: Brook Huddleston on 09-28-2023 Nucleated RBC Auto Ql (Bld) 0.1 /100{WBC} 0-0.5 [facility] Platelet mean volume Auto (B ld) [Entitic vol]Ordered By: Brook Huddleston on 09-28-2023 Platelet mean volume (Bld) [Entitic vol] 7.9 fL 6.6-10.1 [facility] Platelets Auto (Bld) [#/Vol] Ordered By: Brook Huddleston on 09-28-2023 Platelets (Bld) [#/Vol] 167 10*3/uL 150-450 [facility] Potassium [Moles/volume] in Serum or PlasmaOrdered By: Brook Huddleston on 09-28-2023 Potassium [Moles/Vol] 4.4 mmol/L 3.5-5.1 [facility] Protein [Mass/volume] in Ser um or PlasmaOrdered By: Brook Huddleston on 09-28-2023 Protein [Mass/Vol] 6.2 g/dL 6.4-8.9 [facility] RBC Auto (Bld) [#/Vol]Ordere d By: Brook Huddleston on 09-28-2023 RBC (Bld) [#/Vol] 2.67 10*6/uL 3.90-5.60 [facility] Serum or plasma albumin/glob ulin mass ratioOrdered By: Brook Huddleston on 09-28-2023 Albumin/Globulin [Mass ratio] 1.6 {ratio} [facility] Serum or plasma anion gap de terminationOrdered By: Brook Huddleston on 09-28-2023 Anion gap [Moles/Vol] 10.4 mmol/L 6.0-15.0 [facility] Sodium [Moles/volume] in Ser um or PlasmaOrdered By: Brook Huddleston on 09-28-2023 Sodium [Moles/Vol] 140 mmol/L 136-145 [facility] Urea nitrogen [Mass/volume] in Serum or PlasmaOrdered By: Brook Huddleston on 09-28-2023 Urea nitrogen [Mass/Vol] 28 mg/dL 7-25 [facility] WBC Auto (Bld) [#/Vol]Ordere d By: Brook Huddleston on 09-28-2023 WBC (Bld) [#/Vol] 6.5 10*3/uL 4.1-10.5 [facility] Lab Reportson 09-24-2023 Lab Reports [id number]#1.00TIFF Normal [facility] Lab Reports [id number]#1.00TIFF Normal [facility] Operative Reporton Operative Report [id number]#1.00TIFF Normal [facility] Lab Reportson 09-22-2023 Lab Reports [id number]#1.00TIFF Normal [facility] Lab Reports [id number]#1.00TIFF Normal [facility] Consent for Procedure/Surger yon 09-18-2023 Consent for Procedure/Surgery [id number]#1.00TIFF Normal [facility] Lab Reportson 09-14-2023 Lab Reports [id number]#1.00TIFF Normal [facility] Lab Reports [id number]#1.00TIFF Normal [facility] Lab Reports [id number]#1.00TIFF Normal [facility] Lab Reports [id number]#1.00TIFF Normal [facility] RAD - MISCon 09-10-2023 RAD - MISC [id number]#1.00TIFF Normal [facility] Lab Reportson 09-09-2023 Lab Reports [id number]#1.00TIFF Shannan [facility] C Urineon 08-15-2023 Bacteria identified Cx [...] Locations R1: This [facility] performed at: [facility], [address] [place], [address]- , [place], Normal [facility] Comment on above: Performed By: #### [id number] #### [facility] [address] [place] [id number] Ambulatory Visit Summaryon 1 09-22-2022 Ambulatory Visit [...] 10:30 AM EST Where: [facility] Marcela Campbell [facility] Patient Educationon 07-22-20 Patient Education Urology Ureteral [...] these instructions at home: Medicines ? Take nhzb-lql-utfpgxt and prescription medicines only as told by [...] to prevent or treat constipation: ? Take ukfr-pvr-esyxjsl or prescription medicines. ? Eat foods that [...] for up to 1 week. ? Take gujn-lil-ncjlaah and prescription medicines only as told by [...] provider. Document Revised: 09/08/2022 Document Reviewed: 09/08/2022 Else[employer] Patient Education ? 2022 [employer] Suprapubic Catheter Replacement Suprapubic catheter replacement [...] a catheter (more content not included)... Normal [facility] Urology Office/Clinic Noteon 07-22-2023 Urology Office/Clinic [...] week exchanges. Exchanged today without difficulty. Ordered: [id number] Change Cystostomy Tube Urology Procedure Order Urology Procedure Order 2. OAB (overactive bladder) (N32.81: Overactive bladder) Baseline very severe lower urinary tract symptoms. No improve (more content not included)... Normal [facility] Comment on above: Result Comment: Elec tronically Signed By: Orquidea Cortez MD\.br\Date and Time Signed: 07/22/23 18:39 EST\.br\Electronically Co-Signed By: Cornelia De Leon\.br\Date and Time Co-Signed: 07/22/23 10:16 EST RAD - MISCon 07-15-2023 RAD - MISC [id number]#[id number] Normal [facility] Alanine aminotransferase [En zymatic activity/volume] in Serum or PlasmaOrdered By: Brook Huddleston on 07-14-2023 ALT [Catalytic activity/Vol] 14 U/L [facility] Albumin [Mass/volume] in Ser um or Plasma by Bromocresol green (BCG) dye binding methoOrdered By: Brook Huddleston on 07-14-2023 Albumin BCG dye [Mass/Vol] 3.9 g/dL 3.5-5.7 [facility] Alkaline phosphatase [Enzyma tic activity/volume] in Serum or PlasmaOrdered By: Brook Huddleston on 07-14-2023 ALP [Catalytic activity/Vol] 96 U/L 34-104 [facility] Aspartate aminotransferase [ Enzymatic activity/volume] in Serum or PlasmaOrdered By: Brook Huddleston on 07-14-2023 AST [Catalytic activity/Vol] 17 U/L 13-39 [facility] Basophils Auto (Bld) [#/Vol] Ordered By: Brook Huddleston on 07-14-2023 Basophils (Bld) [#/Vol] 0.0 10*3/uL 0.0-0.2 [facility] Basophils/100 WBC Auto (Bld) Ordered By: Brook Huddleston on 07-14-2023 Basophils/100 WBC (Bld) 0.3 % . [facility] Bilirubin.total [Mass/volume ] in Serum or PlasmaOrdered By: Brook Huddleston on 07-14-2023 Bilirubin [Mass/Vol] 0.4 mg/dL 0.3-1.0 [facility] Calcium [Mass/volume] in Ser um or PlasmaOrdered By: Brook Huddleston on 07-14-2023 Calcium [Mass/Vol] 8.8 mg/dL 8.6-10.3 [facility] Carbon dioxide, total [Moles /volume] in Serum or PlasmaOrdered By: Brook Huddleston on 07-14-2023 CO2 [Moles/Vol] 25.2 mmol/L 21.0-31.0 [facility] Chloride [Moles/volume] in S valeria or PlasmaOrdered By: Brook Huddleston on 07-14-2023 Chloride [Moles/Vol] 109 mmol/L 98-107 [facility] Creatinine [Mass/volume] in Serum or PlasmaOrdered By: Brook Huddleston on 07-14-2023 Creatinine [Mass/Vol] 1.74 mg/dL 0.70-1.30 [facility] Eosinophils Auto (Bld) [#/Vo l]Ordered By: Brook Huddleston on 07-14-2023 Eosinophils (Bld) [#/Vol] 0.3 10*3/uL 0.0-0.45 [facility] Eosinophils/100 WBC Auto (Bl d)Ordered By: Brook Huddleston on 07-14-2023 Eosinophils/100 WBC (Bld) 3.4 % . [facility] Erythrocyte distribution wid th Auto (RBC) [Ratio]Ordered By: Brook Huddleston on 07-14-2023 Erythrocyte distribution width (RBC) [Ratio] 16.5 % 12.0-14.8 [facility] Globulin Calc (S) [Mass/Vol] Ordered By: Brook Huddleston on 07-14-2023 Globulin (S) [Mass/Vol] 2.2 g/dL [facility] Glucose [Mass/volume] in Ser um or PlasmaOrdered By: Brook Huddleston on 07-14-2023 Glucose [Mass/Vol] 70 mg/dL 70-100 [facility] Comment on above: ADA recommended refe rence rangeRandom Glucose Reference Range is dependent on time and content of last meal. Glucose of more than 200 mg/dL in a nonstressed, ambulatory subject supports the diagnosis of Diabetes Mellitus. Hematocrit Auto (Bld) [Volum e fraction]Ordered By: Brook Huddleston on 07-14-2023 Hematocrit (Bld) [Volume fraction] 28.7 % 38.8-50.0 [facility] Hemoglobin [Mass/volume] in BloodOrdered By: Brook Huddleston on 07-14-2023 Hemoglobin (Bld) [Mass/Vol] 9.6 g/dL 13.0-17.0 [facility] Leukocytes [#/volume] correc lizbet for nucleated erythrocytes in Blood by Automated counOrdered By: Brook Huddleston on 07-14-2023 WBC corrected for nucl RBC Auto (Bld) [#/Vol] 7.9 10*3/uL 4.1-10.5 [facility] Lymphocytes Auto (Bld) [#/Vo l]Ordered By: Brook Huddleston on 07-14-2023 Lymphocytes (Bld) [#/Vol] 1.1 10*3/uL 1.00-4.8 [facility] Lymphocytes/100 WBC Auto (Bl d)Ordered By: Brook Huddleston on 07-14-2023 Lymphocytes/100 WBC (Bld) 13.4 % . [facility] MCH Auto (RBC) [Entitic mass ]Ordered By: Brook Huddleston on 07-14-2023 MCH (RBC) [Entitic mass] 36.1 pg 27.5-35.2 [facility] MCHC Auto (RBC) [Mass/Vol]Or dered By: Brook Huddleston on 07-14-2023 MCHC (RBC) [Mass/Vol] 33.5 g/dL 32.5-35.6 [facility] MCV Auto (RBC) [Entitic vol] Ordered By: Brook Huddleston on 07-14-2023 MCV (RBC) [Entitic vol] 107.8 fL 83.5-101 [facility] Monocytes Auto (Bld) [#/Vol] Ordered By: Brook Huddleston on 07-14-2023 Monocytes (Bld) [#/Vol] 0.3 10*3/uL 0.0-0.8 [facility] Monocytes/100 WBC Auto (Bld) Ordered By: Brook Huddleston on 07-14-2023 Monocytes/100 WBC (Bld) 4.1 % . [facility] Neutrophils Auto (Bld) [#/Vo l]Ordered By: Brook Huddleston on 07-14-2023 Neutrophils (Bld) [#/Vol] 6.2 10*3/uL 1.8-7.7 [facility] Neutrophils/100 WBC Auto (Bl d)Ordered By: Brook Huddleston on 07-14-2023 Neutrophils/100 WBC (Bld) 78.8 % . [facility] No Panel InformationOrdered By: Brook Huddleston on 07-14-2023 Estimated GFR (CKD-EPI) 39.632 mL/Min [facility] Creatinine Clearance (Chem 40.89 [facility] Nucleated erythrocytes [Pres ence] in Blood by Automated countOrdered By: Brook Huddleston on 07-14-2023 Nucleated RBC Auto Ql (Bld) 0.1 /100{WBC} 0-0.5 [facility] Platelet mean volume Auto (B ld) [Entitic vol]Ordered By: Brook Huddleston on 07-14-2023 Platelet mean volume (Bld) [Entitic vol] 8.4 fL 6.6-10.1 [facility] Platelets Auto (Bld) [#/Vol] Ordered By: Brook Huddleston on 07-14-2023 Platelets (Bld) [#/Vol] 156 10*3/uL 150-450 [facility] Potassium [Moles/volume] in Serum or PlasmaOrdered By: Brook Huddleston on 07-14-2023 Potassium [Moles/Vol] 4.0 mmol/L 3.5-5.1 [facility] Protein [Mass/volume] in Ser um or PlasmaOrdered By: Brook Huddleston on 07-14-2023 Protein [Mass/Vol] 6.1 g/dL 6.4-8.9 [facility] RBC Auto (Bld) [#/Vol]Ordere d By: Brook Huddleston on 07-14-2023 RBC (Bld) [#/Vol] 2.66 10*6/uL 3.90-5.60 [facility] Serum or plasma albumin/glob ulin mass ratioOrdered By: Brook Huddleston on 07-14-2023 Albumin/Globulin [Mass ratio] 1.8 {ratio} [facility] Serum or plasma anion gap de terminationOrdered By: Brook Huddleston on 07-14-2023 Anion gap [Moles/Vol] 8.8 mmol/L 6.0-15.0 [facility] Sodium [Moles/volume] in Ser um or PlasmaOrdered By: Brook Huddleston on 07-14-2023 Sodium [Moles/Vol] 139 mmol/L 136-145 [facility] Urea nitrogen [Mass/volume] in Serum or PlasmaOrdered By: Brook Huddleston on 07-14-2023 Urea nitrogen [Mass/Vol] 24 mg/dL 7-25 [facility] WBC Auto (Bld) [#/Vol]Ordere d By: Brook Huddleston on 07-14-2023 WBC (Bld) [#/Vol] 7.9 10*3/uL 4.1-10.5 [facility] C Urineon 07-04-2023 Bacteria identified Cx [...] Locations R1: This test was performed at: [facility], [address] [place] [address], [id number]- , [place], [facility] Comment on above: Performed By: #### [id number] #### [facility] [address] [place] [id number] Ambulatory Visit Summaryon 1 09-01-2022 Ambulatory Visit [...] RICKS, Orquidea Taylor [facility] Alanine aminotransferase [En zymatic activity/volume] in Serum or PlasmaOrdered By: Price Crain on 06-23-2023 ALT [Catalytic activity/Vol] 16 U/L 7-52 [facility] Albumin [Mass/volume] in Ser um or Plasma by Bromocresol green (BCG) dye binding methoOrdered By: Price Crain on 06-23-2023 Albumin BCG dye [Mass/Vol] 3.7 g/dL 3.5-5.7 [facility] Alkaline phosphatase [Enzyma tic activity/volume] in Serum or PlasmaOrdered By: Price Crain on 06-23-2023 ALP [Catalytic activity/Vol] 102 U/L 34-104 [facility] Aspartate aminotransferase [ Enzymatic activity/volume] in Serum or PlasmaOrdered By: Price Crain on 06-23-2023 AST [Catalytic activity/Vol] 16 U/L 13-39 [facility] Bilirubin.total [Mass/volume ] in Serum or PlasmaOrdered By: Price Crain on 06-23-2023 Bilirubin [Mass/Vol] 0.5 mg/dL 0.3-1.0 [facility] Calcium [Mass/volume] in Ser um or PlasmaOrdered By: Price Crain 06-23-2023 Calcium [Mass/Vol] 8.8 mg/dL 8.6-10.3 [facility] Carbon dioxide, total [Moles /volume] in Serum or PlasmaOrdered By: Price Crain on 06-23-2023 CO2 [Moles/Vol] 24.7 mmol/L 21.0-31.0 [facility] Chloride [Moles/volume] in S valeria or PlasmaOrdered By: Price Crain 06-23-2023 Chloride [Moles/Vol] 109 mmol/L 98-107 [facility] Creatinine [Mass/volume] in Serum or PlasmaOrdered By: Price Crain 06-23-2023 Creatinine [Mass/Vol] 1.69 mg/dL 0.70-1.30 [facility] Creatinine [Mass/volume] in UrineOrdered By: Price Crain on 06-23-2023 Creatinine (U) [Mass/Vol] 133.0 mg/dL 14.0-26.0 [facility] Erythrocyte distribution wid th Auto (RBC) [Ratio]Ordered By: Price Crain on 06-23-2023 Erythrocyte distribution width (RBC) [Ratio] 16.4 % 12.0-14.8 [facility] Globulin Calc (S) [Mass/Vol] Ordered By: Price Crain on 06-23-2023 Globulin (S) [Mass/Vol] 2.3 g/dL [facility] Glucose [Mass/volume] in Ser um or PlasmaOrdered By: Price Crain on 06-23-2023 Glucose [Mass/Vol] 117 mg/dL 70-100 [facility] Comment on above: ADA recommended refe rence rangeRandom Glucose Reference Range is dependent on time and content of last meal. Glucose of more than 200 mg/dL in a nonstressed, ambulatory subject supports the diagnosis of Diabetes Mellitus. Hematocrit Auto (Bld) [Volum e fraction]Ordered By: Price Crain on 06-23-2023 Hematocrit (Bld) [Volume fraction] 28.7 % 38.8-50.0 [facility] Hemoglobin [Mass/volume] in BloodOrdered By: Price Crain on 06-23-2023 Hemoglobin (Bld) [Mass/Vol] 9.8 g/dL 13.0-17.0 [facility] Leukocytes [#/volume] correc lizbet for nucleated erythrocytes in Blood by Automated counOrdered By: Price Crain on 06-23-2023 WBC corrected for nucl RBC Auto (Bld) [#/Vol] 7.3 10*3/uL 4.1-10.5 [facility] MCH Auto (RBC) [Entitic mass ]Ordered By: Price Crain on 06-23-2023 MCH (RBC) [Entitic mass] 36.8 pg 27.5-35.2 [facility] MCHC Auto (RBC) [Mass/Vol]Or dered By: Price Crain on 06-23-2023 MCHC (RBC) [Mass/Vol] 34.1 g/dL 32.5-35.6 [facility] MCV Auto (RBC) [Entitic vol] Ordered By: Price Crain on 06-23-2023 MCV (RBC) [Entitic vol] 107.9 fL 83.5-101 [facility] Magnesium [Mass/volume] in S valeria or PlasmaOrdered By: Price Crain on 06-23-2023 Magnesium [Mass/Vol] 1.8 mg/dL 1.9-2.7 [facility] No Panel InformationOrdered By: Price Crain on 06-23-2023 Estimated GFR (CKD-EPI) 41.043 mL/Min [facility] Creatinine Clearance (Chem N/A [facility] Parathyrin.intact [Mass/volu me] in Serum or PlasmaOrdered By: Price Crain on 06-23-2023 Parathyrin.intact [Mass/Vol] 51.9 pg/mL 12-88 [facility] Phosphate [Mass/volume] in S valeria or PlasmaOrdered By: Price Crain on 06-23-2023 Phosphate [Mass/Vol] 2.9 mg/dL 2.5-4.5 [facility] Platelet mean volume Auto (B ld) [Entitic vol]Ordered By: Price Crain on 06-23-2023 Platelet mean volume (Bld) [Entitic vol] 8.5 fL 6.6-10.1 [facility] Platelets Auto (Bld) [#/Vol] Ordered By: Price Crain on 06-23-2023 Platelets (Bld) [#/Vol] 166 10*3/uL 150-450 [facility] Potassium [Moles/volume] in Serum or PlasmaOrdered By: Price Crain on 06-23-2023 Potassium [Moles/Vol] 4.4 mmol/L 3.5-5.1 [facility] Protein [Mass/volume] in Ser um or PlasmaOrdered By: Price Crain on 06-23-2023 Protein [Mass/Vol] 6.0 g/dL 6.4-8.9 [facility] Protein [Mass/volume] in Uri neOrdered By: Pirce Crain on 06-23-2023 Protein (U) [Mass/Vol] 377 mg/dL 0-9 [facility] RBC Auto (Bld) [#/Vol]Ordere d By: Price Crain on 06-23-2023 RBC (Bld) [#/Vol] 2.66 10*6/uL 3.90-5.60 [facility] Serum or plasma albumin/glob ulin mass ratioOrdered By: Price Crain on 06-23-2023 Albumin/Globulin [Mass ratio] 1.6 {ratio} [facility] Serum or plasma anion gap de terminationOrdered By: Price Crain on 06-23-2023 Anion gap [Moles/Vol] 9.7 mmol/L 6.0-15.0 [facility] Sodium [Moles/volume] in Ser um or PlasmaOrdered By: Price Crain on 06-23-2023 Sodium [Moles/Vol] 139 mmol/L 136-145 [facility] Urate [Mass/volume] in Serum or PlasmaOrdered By: Price Crain on 06-23-2023 Urate [Mass/Vol] 4.8 mg/dL 4.4-7.6 [facility] Urea nitrogen [Mass/volume] in Serum or PlasmaOrdered By: Price Crain on 06-23-2023 Urea nitrogen [Mass/Vol] 17 mg/dL 7-25 [facility] Urine protein/creatinine rat ioOrdered By: Price Crain on 06-23-2023 Protein/Creatinine (U) [Ratio] 2835 mg/g{Cre} 0-200 [facility] Vitamin D+Metabolites [Mass/ volume] in Serum or PlasmaOrdered By: Price Crain on 06-23-2023 Vitamin D+Metabolites [Mass/Vol] 51.0 ng/mL 30-100 [facility] Comment on above: VITAMIN D STATUS 25( [place])VITAMIN D RANGE (ng/mL) Deficient <20 Insufficient 20 to <30Sufficient 30 to 100Reference: Dieudonne MF,Brendon NC, Estrella CARTER, et al. Evaluation,treatment, and prevention of vitamin D deficiency; an Endocrine Society clinical practice guideline. JCEM. 2011 Leo; 96(7):1911-30. Physician Orderon 06-15-2023 Physician Order [id number]#1.00TIFF Normal [facility] RAD - MISCon 06-12-2023 RAD - MISC [id number]#1.00TIFF Normal [facility] Consultation Noteon 06-11-20 Consultation Note [id number]#1.00TIFF Normal [facility] Lab Reportson 06-11-2023 Lab Reports [id number]#1.00TIFF Normal [facility] Operative Reporton Operative Report [id number]#1.00TIFF Normal [facility] Lab Reportson 06-04-2023 Lab Reports [id number]#1.00TIFF Normal [facility] Lab Reports [id number]#1.00TIFF Normal [facility] Formson 06-02-2023 Forms [id number]#1.00TIFF Normal [facility] Lab Reportson 06-02-2023 Lab Reports [id number]#1.00TIFF Normal [facility] Lab Reports [id number]#1.00TIFF Normal [facility] Lab Reports [id number]#1.00TIFF Normal [facility] Lab Reportson 06-01-2023 Lab Reports [id number]#1.00TIFF Normal [facility] C Urineon 05-30-2023 Bacteria identified Cx [...] This test was performed at: [facility], [address] [place] [address], [address]- , , [facility] Comment on above: Performed By: #### 2 [id number] ####[facility] [address] [place] [address] Consultation Noteon 05-29-20 Consultation Note [id number]#1.00TIFF [facility] Reminderson 05-28-2023 Reminders - From: Rupa Mckeon MA To: Diego RICKS, Orquidea Taylor; Sent: 05/28/2023 15:45:43 EDT Show up: 05/28/2023 15:45:00 EDT Subject: C&S Reminder/Recall Follow up to look at C&S before his procedure on 06/11/23 [facility] RAD - MISCon 05-27-2023 RAD - MISC [id number]#1.00TIFF [facility] Lab Reportson 05-25-2023 Lab Reports [id number]#1.00TIFF [facility] RAD - MISCon 05-22-2023 RAD - MISC [id number]#1.00TIFF [facility] Alanine aminotransferase [En zymatic activity/volume] in Serum or PlasmaOrdered By: Brook Huddleston on 05-19-2023 ALT [Catalytic activity/Vol] 17 U/L 7-52 [facility] Albumin [Mass/volume] in Ser um or PlasmaOrdered By: Brook Huddleston on 05-19-2023 Albumin [Mass/Vol] 3.6 g/dL 2.9-4.4 [facility] Albumin [Mass/volume] in Ser um or Plasma by Bromocresol green (BCG) dye binding methoOrdered By: Brook Huddleston on 05-19-2023 Albumin BCG dye [Mass/Vol] 4.0 g/dL 3.5-5.7 [facility] Albumin/Protein.total in 24 hour Urine by ElectrophoresisOrdered By: Brook Huddleston on 05-19-2023 Albumin Elph (24H U) [Mass fraction] 35.4 % . [facility] Alkaline phosphatase [Enzyma tic activity/volume] in Serum or PlasmaOrdered By: Brook Huddleston on 05-19-2023 ALP [Catalytic activity/Vol] 99 U/L 34-104 [facility] Aspartate aminotransferase [ Enzymatic activity/volume] in Serum or PlasmaOrdered By: Brook Huddleston on 05-19-2023 AST [Catalytic activity/Vol] 15 U/L 13-39 [facility] Basophils Auto (Bld) [#/Vol] Ordered By: Brook Huddleston on 05-19-2023 Basophils (Bld) [#/Vol] 0.0 10*3/uL 0.0-0.2 [facility] Basophils/100 WBC Auto (Bld) Ordered By: Brook Huddleston on 05-19-2023 Basophils/100 WBC (Bld) 0.6 % . [facility] Bilirubin.total [Mass/volume ] in Serum or PlasmaOrdered By: Brook Huddleston on 05-19-2023 Bilirubin [Mass/Vol] 0.3 mg/dL 0.3-1.0 [facility] Calcium [Mass/volume] in Ser um or PlasmaOrdered By: Brook Huddleston on 05-19-2023 Calcium [Mass/Vol] 9.1 mg/dL 8.6-10.3 [facility] Carbon dioxide, total [Moles /volume] in Serum or PlasmaOrdered By: Brook Huddleston on 05-19-2023 CO2 [Moles/Vol] 25.3 mmol/L 21.0-31.0 [facility] Chloride [Moles/volume] in S valeria or PlasmaOrdered By: Brook Huddleston on 05-19-2023 Chloride [Moles/Vol] 108 mmol/L 98-107 [facility] Creatinine [Mass/volume] in Serum or PlasmaOrdered By: Brook Huddleston on 05-19-2023 Creatinine [Mass/Vol] 1.70 mg/dL 0.70-1.30 [facility] Eosinophils Auto (Bld) [#/Vo l]Ordered By: Brook Huddleston on 05-19-2023 Eosinophils (Bld) [#/Vol] 0.4 10*3/uL 0.0-0.45 [facility] Eosinophils/100 WBC Auto (Bl d)Ordered By: Brook Huddleston on 05-19-2023 Eosinophils/100 WBC (Bld) 7.0 % . [facility] Erythrocyte distribution wid th Auto (RBC) [Ratio]Ordered By: Brook Huddleston on 05-19-2023 Erythrocyte distribution width (RBC) [Ratio] 16.4 % 12.0-14.8 [facility] Gamma globulin/Protein.total in 24 hour Urine by ElectrophoresisOrdered By: Brook Huddleston on 05-19-2023 Gamma globulin Elph (24H U) [Mass fraction] 22.0 % . [facility] Globulin Calc (S) [Mass/Vol] Ordered By: Brook Huddleston on 05-19-2023 Globulin (S) [Mass/Vol] 2.5 g/dL [facility] Glucose [Mass/volume] in Ser um or PlasmaOrdered By: Brook Huddleston on 05-19-2023 Glucose [Mass/Vol] 253 mg/dL 70-100 [facility] Comment on above: ADA recommended refe rence rangeRandom Glucose Reference Range is dependent on time and content of last meal. Glucose of more than 200 mg/dL in a nonstressed, ambulatory subject supports the diagnosis of Diabetes Mellitus. Hematocrit Auto (Bld) [Volum e fraction]Ordered By: Brook Huddleston on 05-19-2023 Hematocrit (Bld) [Volume fraction] 29.5 % 38.8-50.0 [facility] Hemoglobin [Mass/volume] in BloodOrdered By: Brook Huddleston on 05-19-2023 Hemoglobin (Bld) [Mass/Vol] 9.9 g/dL 13.0-17.0 [facility] IgA [Mass/volume] in Serum o r PlasmaOrdered By: Brook Huddleston on 05-19-2023 IgA [Mass/Vol] 143 mg/dL 61-437 [facility] IgG [Mass/volume] in Serum o r PlasmaOrdered By: Brook Huddleston on 05-19-2023 IgG [Mass/Vol] 891 mg/dL 603-1613 [facility] IgM [Mass/volume] in Serum o r PlasmaOrdered By: Brook Huddleston on 05-19-2023 IgM [Mass/Vol] 52 mg/dL 15-143 [facility] Comment on above: Performed at: [facility] [id number] [place] [id number] Director: Melchor Agrawal PhD, Phone: [phone] Immunofixation for UrineOrde red By: Brook Huddleston on 05-19-2023 Interpretation Immunofixation (U) [Interp] Comment: . [facility] Comment on above: Presence of monoclon al protein is unclear at this time. Suggestrepeat in 3 to 6 months if clinically indicated.Performed at: [facility] [id number] Director: Melchor Agrawal PhD, Phone: [phone] Immunoglobulin light chains. kappa.free [Mass/volume] in SerumOrdered By: Brook Huddleston on 05-19-2023 Immunoglobulin light chains.kappa.free (S) [Mass/Vol] 34.4 mg/L 3.3-19.4 [facility] Immunoglobulin light chains. kappa.free/Immunoglobulin light chains.lambda.free [MassOrdered By: Brook Huddleston on 05-19-2023 Immunoglobulin light chains.kappa.free/Immun oglobulin light chains.lambda.free (S) [Mass ratio] 1.43 0.26-1.65 [facility] Comment on above: Performed at: [facility] [place] [address] [id number] Director: Melchor Agrawal PhD, Phone: [phone] Immunoglobulin light chains. lambda.free [Mass/volume] in Serum or PlasmaOrdered By: Brook Huddleston on 05-19-2023 Immunoglobulin light chains.lambda.free [Mass/Vol] 24.1 mg/L 5.7-26.3 [facility] Lactate dehydrogenase [Enzym atic activity/volume] in Serum or Plasma by Lactate to pyOrdered By: Brook Huddleston on 05-19-2023 LDH Lactate to pyruvate reaction [Catalytic activity/Vol] 154 U/L 140-271 [facility] Leukocytes [#/volume] correc lizbet for nucleated erythrocytes in Blood by Automated counOrdered By: Brook Huddleston on 05-19-2023 WBC corrected for nucl RBC Auto (Bld) [#/Vol] 6.1 10*3/uL 4.1-10.5 [facility] Lymphocytes Auto (Bld) [#/Vo l]Ordered By: Brook Huddleston on 05-19-2023 Lymphocytes (Bld) [#/Vol] 1.1 10*3/uL 1.00-4.8 [facility] Lymphocytes/100 WBC Auto (Bl d)Ordered By: Brook Huddleston on 05-19-2023 Lymphocytes/100 WBC (Bld) 17.4 % . [facility] MCH Auto (RBC) [Entitic mass ]Ordered By: Brook Huddleston on 05-19-2023 MCH (RBC) [Entitic mass] 36.3 pg 27.5-35.2 [facility] MCHC Auto (RBC) [Mass/Vol]Or dered By: Brook Huddleston on 05-19-2023 MCHC (RBC) [Mass/Vol] 33.6 g/dL 32.5-35.6 [facility] MCV Auto (RBC) [Entitic vol] Ordered By: Brook Huddleston on 05-19-2023 MCV (RBC) [Entitic vol] 107.8 fL 83.5-101 [facility] Monocytes Auto (Bld) [#/Vol] Ordered By: Brook Huddleston on 05-19-2023 Monocytes (Bld) [#/Vol] 0.4 10*3/uL 0.0-0.8 [facility] Monocytes/100 WBC Auto (Bld) Ordered By: Brook Huddleston on 05-19-2023 Monocytes/100 WBC (Bld) 6.0 % . [facility] Neutrophils Auto (Bld) [#/Vo l]Ordered By: Brook Huddleston on 05-19-2023 Neutrophils (Bld) [#/Vol] 4.2 10*3/uL 1.8-7.7 [facility] Neutrophils/100 WBC Auto (Bl d)Ordered By: Brook Huddleston on 05-19-2023 Neutrophils/100 WBC (Bld) 69.0 % . [facility] No Panel InformationOrdered By: Brook Huddleston on 05-19-2023 Estimated GFR (CKD-EPI) 40.753 mL/Min [facility] Creatinine Clearance (Chem 44.34 [facility] Protein Electrophoresis M-Anselmo Not observed g/dL Not Observed [facility] Protein Electrophoresis Note See comment . [facility] Comment on above: Protein electrophore sis scan will follow via computer,mail, or technical documentation specialist delivery. Urine Random Prot Electrophor Note See comment . [facility] Comment on above: Protein electrophore sis scan will follow via computer,mail, or technical documentation specialist delivery. Nucleated erythrocytes [Pres ence] in Blood by Automated countOrdered By: Brook Huddleston on 05-19-2023 Nucleated RBC Auto Ql (Bld) 0.0 /100{WBC} 0-0.5 [facility] Platelet mean volume Auto (B ld) [Entitic vol]Ordered By: Brook Huddleston on 05-19-2023 Platelet mean volume (Bld) [Entitic vol] 8.6 fL 6.6-10.1 [facility] Platelets Auto (Bld) [#/Vol] Ordered By: Brook Huddleston on 05-19-2023 Platelets (Bld) [#/Vol] 160 10*3/uL 150-450 [facility] Potassium [Moles/volume] in Serum or PlasmaOrdered By: Brook Huddleston on 05-19-2023 Potassium [Moles/Vol] 4.7 mmol/L 3.5-5.1 [facility] Protein [Mass/volume] in Ser um or PlasmaOrdered By: Brook Huddleston on 05-19-2023 Protein [Mass/Vol] 6.5 g/dL 6.0-8.5 [facility] Protein [Mass/volume] in Uri neOrdered By: Brook Huddleston on 05-19-2023 Protein (U) [Mass/Vol] 94.6 mg/dL Not Estab. Fi [facility] Protein.monoclonal/Protein.t otal in 24 hour Urine by ElectrophoresisOrdered By: Brook Huddleston on 05-19-2023 Protein.monoclonal Elph (24H U) [Mass fraction] Comment: % Not Observed [facility] Comment on above: UPE shows asymmetric al gamma. RBC Auto (Bld) [#/Vol]Ordere d By: Brook Huddleston on 05-19-2023 RBC (Bld) [#/Vol] 2.73 10*6/uL 3.90-5.60 [facility] - Clinical Noteon [employer] - Clinical Note [id number]#[id number]:127 Normal [facility] Serum globulin measurement ( mass/volume)Ordered By: Brook Huddleston on 05-19-2023 Globulin (S) [Mass/Vol] 2.9 g/dL 2.2-3.9 [facility] Serum or plasma albumin/glob ulin mass ratioOrdered By: Brook Huddleston on 05-19-2023 Albumin/Globulin [Mass ratio] 1.6 {ratio} [facility] Albumin/Globulin [Mass ratio] 1.2 {ratio} 0.7-1.7 [facility] Serum or plasma alpha 1 glob ulin measurement by electrophoresis (mass/volume)Ordered By: Brook Huddleston on 05-19-2023 Alpha 1 globulin Elph [Mass/Vol] 0.3 g/dL 0.0-0.4 [facility] Serum or plasma alpha 2 glob ulin measurement by electrophoresis (mass/volume)Ordered By: Brook Huddleston on 05-19-2023 Alpha 2 globulin Elph [Mass/Vol] 0.9 g/dL 0.4-1.0 [facility] Serum or plasma anion gap de terminationOrdered By: Brook Huddleston on 05-19-2023 Anion gap [Moles/Vol] 10.4 mmol/L 6.0-15.0 [facility] Serum or plasma beta globuli n measurement by electrophoresis (mass/volume)Ordered By: Brook Huddleston on 05-19-2023 Beta globulin Elph [Mass/Vol] 0.9 g/dL 0.7-1.3 [facility] Serum or plasma gamma globul in measurement by electrophoresis (mass/volume)Ordered By: Brook Huddleston on 05-19-2023 Gamma globulin Elph [Mass/Vol] 0.8 g/dL 0.4-1.8 [facility] Sodium [Moles/volume] in Ser um or PlasmaOrdered By: Brook Huddleston on 05-19-2023 Sodium [Moles/Vol] 139 mmol/L 136-145 [facility] Urea nitrogen [Mass/volume] in Serum or PlasmaOrdered By: Brook Huddleston on 05-19-2023 Urea nitrogen [Mass/Vol] 24 mg/dL 7-25 [facility] Urine alpha 1 globulin/total protein by electrophoresisOrdered By: Brook Huddleston on 05-19-2023 Alpha 1 globulin Elph (U) [Mass fraction] 5.0 % . [facility] Urine alpha 2 globulin/total protein ratio by electrophoresisOrdered By: Brook Huddleston on 05-19-2023 Alpha 2 globulin Elph (U) [Mass fraction] 16.8 % . [facility] Urine beta globulin measurem ent by electrophoresis (mass/volume)Ordered By: Brook Huddleston on 05-19-2023 Beta globulin Elph (U) [Mass/Vol] 20.7 % . [facility] WBC Auto (Bld) [#/Vol]Ordere d By: Brook Huddleston on 05-19-2023 WBC (Bld) [#/Vol] 6.1 10*3/uL 4.1-10.5 [facility] Consultation Noteon 05-18-20 Consultation Note [id number]#[id number]:127 Normal [facility] Lab Reportson 05-18-2023 Lab Reports [id number]#[id number]:127 Normal [facility] Lab Reports [id number]#[id number]:127 Normal [facility] Operative Reporton Operative Report [id number]#[id number]:127 Normal [facility] Ambulatory Visit Summaryon 0 05-15-2023 Ambulatory [...] Schedule the Following Appointments Follow Up with Orquidea Cortez MD., URL, URO When: Comments: -KUB -sched cysto/R stent exchange and L ESWL and SPT change Where: [address], [place] [address] [phone] Medications What How Much When Instructions Unchanged [...] infection) UTI symptoms Weak urine stream Normal [facility] Patient Educationon 05-15-20 23 Patient Education Obstetrics and Gynec ology Overactive [...] health care provider. General instructions ? Take ajea-jhv-dxvxnwq and prescription medicines only as told by [...] monitor yo (more content not included)... Normal [facility] Urology Office/Clinic Noteon 09-29-2023 Urology Office/Clinic Note Chief Complaint Pt is [...] bond/CIC at that time. Renal US 11/17/22 [facility] [place] - R-sided hydronephrosis [...] since the prior US study. 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 Dr. Jessica Feliciano evaluation (more content not included)... Normal [facility] Comment on above: Result Comment: Elec tronically Signed By: Diego RICKS, Orquidea Taylor\.br\Date and Time Signed: 05/15/23 16:38 EDT\.br\Electronically Co-Signed By: Cornelia De Leon\.br\Date and Time Co-Signed: 05/15/23 16:17 EDT Alanine aminotransferase [En zymatic activity/volume] in Serum or PlasmaOrdered By: Brook Huddleston on 02-19-2023 ALT [Catalytic activity/Vol] 14 U/L 7-52 [facility] Albumin [Mass/volume] in Ser um or Plasma by Bromocresol green (BCG) dye binding methoOrdered By: Brook Huddleston on 02-19-2023 Albumin BCG dye [Mass/Vol] 3.9 g/dL 3.5-5.7 [facility] Alkaline phosphatase [Enzyma tic activity/volume] in Serum or PlasmaOrdered By: Brook Huddleston on 02-19-2023 ALP [Catalytic activity/Vol] 77 U/L 34-104 [facility] Aspartate aminotransferase [ Enzymatic activity/volume] in Serum or PlasmaOrdered By: Brook Huddleston on 02-19-2023 AST [Catalytic activity/Vol] 16 U/L 13-39 [facility] Basophils Auto (Bld) [#/Vol] Ordered By: Brook Huddleston on 02-19-2023 Basophils (Bld) [#/Vol] 0.0 10*3/uL 0.0-0.2 [facility] Basophils/100 WBC Auto (Bld) Ordered By: Brook Huddleston on 02-19-2023 Basophils/100 WBC (Bld) 0.3 % . [facility] Bilirubin.total [Mass/volume ] in Serum or PlasmaOrdered By: Brook Huddleston on 02-19-2023 Bilirubin [Mass/Vol] 0.5 mg/dL 0.3-1.0 [facility] Calcium [Mass/volume] in Ser um or PlasmaOrdered By: Brook Huddleston on 02-19-2023 Calcium [Mass/Vol] 8.7 mg/dL 8.6-10.3 [facility] Carbon dioxide, total [Moles /volume] in Serum or PlasmaOrdered By: Brook Huddleston on 02-19-2023 CO2 [Moles/Vol] 28.1 mmol/L 21.0-31.0 [facility] Chloride [Moles/volume] in S valeria or PlasmaOrdered By: Brook Huddleston on 02-19-2023 Chloride [Moles/Vol] 108 mmol/L 98-107 [facility] Creatinine [Mass/volume] in Serum or PlasmaOrdered By: Brook Huddleston on 02-19-2023 Creatinine [Mass/Vol] 1.71 mg/dL 0.70-1.30 [facility] Eosinophils Auto (Bld) [#/Vo l]Ordered By: Brook Huddleston on 02-19-2023 Eosinophils (Bld) [#/Vol] 0.2 10*3/uL 0.0-0.45 [facility] Eosinophils/100 WBC Auto (Bl d)Ordered By: Brook Huddleston on 02-19-2023 Eosinophils/100 WBC (Bld) 4.0 % . [facility] Erythrocyte distribution wid th Auto (RBC) [Ratio]Ordered By: Brook Huddleston on 02-19-2023 Erythrocyte distribution width (RBC) [Ratio] 16.9 % 12.0-14.8 [facility] Globulin Calc (S) [Mass/Vol] Ordered By: Brook Huddleston on 02-19-2023 Globulin (S) [Mass/Vol] 2.0 g/dL [facility] Glucose [Mass/volume] in Ser um or PlasmaOrdered By: Brook Huddleston on 02-19-2023 Glucose [Mass/Vol] 99 mg/dL 70-100 [facility] Comment on above: ADA recommended refe rence rangeRandom Glucose Reference Range is dependent on time and content of last meal. Glucose of more than 200 mg/dL in a nonstressed, ambulatory subject supports the diagnosis of Diabetes Mellitus. Hematocrit Auto (Bld) [Volum e fraction]Ordered By: Brook Huddleston on 02-19-2023 Hematocrit (Bld) [Volume fraction] 27.7 % 38.8-50.0 [facility] Hemoglobin [Mass/volume] in BloodOrdered By: Brook Huddleston on 02-19-2023 Hemoglobin (Bld) [Mass/Vol] 9.4 g/dL 13.0-17.0 [facility] Leukocytes [#/volume] correc lizbet for nucleated erythrocytes in Blood by Automated counOrdered By: Brook Huddleston on 02-19-2023 WBC corrected for nucl RBC Auto (Bld) [#/Vol] 5.7 10*3/uL 4.1-10.5 [facility] Lymphocytes Auto (Bld) [#/Vo l]Ordered By: Brook Huddleston on 02-19-2023 Lymphocytes (Bld) [#/Vol] 1.0 10*3/uL 1.00-4.8 [facility] Lymphocytes/100 WBC Auto (Bl d)Ordered By: Brook Huddleston on 02-19-2023 Lymphocytes/100 WBC (Bld) 18.2 % . [facility] MCH Auto (RBC) [Entitic mass ]Ordered By: Brook Huddleston on 02-19-2023 MCH (RBC) [Entitic mass] 36.5 pg 27.5-35.2 [facility] MCHC Auto (RBC) [Mass/Vol]Or dered By: Brook Huddleston on 02-19-2023 MCHC (RBC) [Mass/Vol] 33.9 g/dL 32.5-35.6 [facility] MCV Auto (RBC) [Entitic vol] Ordered By: Brook Huddleston on 02-19-2023 MCV (RBC) [Entitic vol] 107.8 fL 83.5-101 [facility] Monocytes Auto (Bld) [#/Vol] Ordered By: Brook Huddleston on 02-19-2023 Monocytes (Bld) [#/Vol] 0.3 10*3/uL 0.0-0.8 [facility] Monocytes/100 WBC Auto (Bld) Ordered By: Brook Huddleston on 02-19-2023 Monocytes/100 WBC (Bld) 6.0 % . [facility] Neutrophils Auto (Bld) [#/Vo l]Ordered By: Brook Huddleston on 02-19-2023 Neutrophils (Bld) [#/Vol] 4.1 10*3/uL 1.8-7.7 [facility] Neutrophils/100 WBC Auto (Bl d)Ordered By: Brook Huddleston on 02-19-2023 Neutrophils/100 WBC (Bld) 71.5 % . [facility] No Panel InformationOrdered By: Brook Huddleston on 02-19-2023 Estimated GFR (CKD-EPI) 40.467 mL/Min [facility] Creatinine Clearance (Chem 44.08 [facility] Nucleated erythrocytes [Pres ence] in Blood by Automated countOrdered By: Brook Huddleston on 02-19-2023 Nucleated RBC Auto Ql (Bld) 0.0 /100{WBC} 0-0.5 [facility] Platelet mean volume Auto (B ld) [Entitic vol]Ordered By: Brook Huddleston on 02-19-2023 Platelet mean volume (Bld) [Entitic vol] 8.4 fL 6.6-10.1 [facility] Platelets Auto (Bld) [#/Vol] Ordered By: Brook Huddleston on 02-19-2023 Platelets (Bld) [#/Vol] 118 10*3/uL 150-450 [facility] Potassium [Moles/volume] in Serum or PlasmaOrdered By: Brook Huddleston on 02-19-2023 Potassium [Moles/Vol] 4.1 mmol/L 3.5-5.1 [facility] Protein [Mass/volume] in Ser um or PlasmaOrdered By: Brook Huddleston on 02-19-2023 Protein [Mass/Vol] 5.9 g/dL 6.4-8.9 [facility] RBC Auto (Bld) [#/Vol]Ordere d By: Brook Huddleston on 02-19-2023 RBC (Bld) [#/Vol] 2.57 10*6/uL 3.90-5.60 [facility] Serum or plasma albumin/glob ulin mass ratioOrdered By: Brook Huddleston on 02-19-2023 Albumin/Globulin [Mass ratio] 2.0 {ratio} [facility] Serum or plasma anion gap de terminationOrdered By: Brook Huddleston on 02-19-2023 Anion gap [Moles/Vol] 8.0 mmol/L 6.0-15.0 [facility] Sodium [Moles/volume] in Ser um or PlasmaOrdered By: Brook Huddleston on 02-19-2023 Sodium [Moles/Vol] 140 mmol/L 136-145 [facility] Urea nitrogen [Mass/volume] in Serum or PlasmaOrdered By: Brook Huddleston on 02-19-2023 Urea nitrogen [Mass/Vol] 22 mg/dL 7-25 [facility] WBC Auto (Bld) [#/Vol]Ordere d By: Brook Huddleston on 02-19-2023 WBC (Bld) [#/Vol] 5.7 10*3/uL 4.1-10.5 [facility] Patient Educationon 02-14-20 Patient Education Nephrology [...] ? 8 oz (237 mL) of milk, msvqigj-hrvsgelpwixh-iudib milk, and calcium-fortifiedfruit juice. Calcium-fortified means that [...] Spinach (cooked), rhubarb, beets, sweet potatoes, and Bulgarian chard. ? Peanuts. ? Potato chips, cook islander fries, and baked potatoes with skin on. ? Nuts and nut products. ? Chocolate. ? If you regularly take a diuretic medicine, make sure to eat at least 1 or 2 servings of fruits or vegetables that are high in potassium each day. These include: ? Avocado. ? Banana. ? [place], prune, carrot, or tomato juice. ? Baked [...] fish oil, or vitamin B6. ? Take dxpj-lzv-tvupfas and prescription medicines only as told by your health care provider. These include supplements. What foods should I limit? Limit your in (more content not included)... 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 Renal US 11/17/22 [facility] [place] - R-sided hydronephrosis [...] qd. Stent not bothersome, oxybutynin working well. [place] improved, kidney draining, fxn preserved. Again thorough [...] tertiary center for further evaluation. 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 Normal [facility] Comment on above: Result Comment: Elec tronically Signed By: Diego RICKS, Orquidea Taylor\.br\Date and Time Signed: 02/13/23 13:09 EDT Albumin [Mass/volume] in Ser um or PlasmaOrdered By: Brook Huddleston on 01-05-2023 Albumin [Mass/Vol] 3.5 g/dL 2.9-4.4 [facility] Albumin/Protein.total in 24 hour Urine by ElectrophoresisOrdered By: Brook Huddleston on 01-05-2023 Albumin Elph (24H U) [Mass fraction] 50.4 % . [facility] Automated erythrocytes count in urine sediment (number/area)Ordered By: Price Crain on 01-05-2023 RBC Auto (Urine sed) [#/Area] 0-1 [HPF] 0-4 [facility] Automated leukocytes count i n urine sediment (number/area)Ordered By: Price Crain on 01-05-2023 WBC Auto (Urine sed) [#/Area] Innumerable [HPF] 0-4 [facility] Bilirubin Test strip Ql (U)O rdered By: Price Crain on 01-05-2023 Bilirubin Ql (U) Negative Negative [facility] Color Auto (U)Ordered By: Ivan Crain on 01-05-2023 Color (U) Yellow Yellow [facility] Creatinine [Mass/volume] in UrineOrdered By: Price Crain on 01-05-2023 Creatinine (U) [Mass/Vol] 102.0 mg/dL 14.0-26.0 [facility] Ferritin [Mass/volume] in Se rum or PlasmaOrdered By: Price Crain on 01-05-2023 Ferritin [Mass/Vol] 329.6 ng/mL 23.9-336.2 [facility] Folate [Mass/volume] in Seru m or PlasmaOrdered By: Price Crain on 01-05-2023 Folate [Mass/Vol] 47.0 ng/mL >5.9 [facility] Comment on above: Folate reference ran ge: >5.9 ng/mlThe WHO technical consultation on folate and vitamin [id number] has determined that folate concentrations lessthan 4 ng/ml are considered deficient. Gamma globulin/Protein.total in 24 hour Urine by ElectrophoresisOrdered By: Brook Huddleston on 01-05-2023 Gamma globulin Elph (24H U) [Mass fraction] 19.2 % . [facility] IgA [Mass/volume] in Serum o r PlasmaOrdered By: Brook Huddleston on 01-05-2023 IgA [Mass/Vol] 102 mg/dL 61-437 [facility] IgG [Mass/volume] in Serum o r PlasmaOrdered By: Brook Huddleston on 01-05-2023 IgG [Mass/Vol] 720 mg/dL 603-1613 [facility] IgM [Mass/volume] in Serum o r PlasmaOrdered By: Brook Huddleston on 01-05-2023 IgM [Mass/Vol] 38 mg/dL 15-143 [facility] Comment on above: Performed at: [place] [id number] Director: Melchor Agrawal PhD, Phone: [phone] Immunofixation for UrineOrde red By: Brook Huddleston on 01-05-2023 Interpretation Immunofixation (U) [Interp] See comment . [facility] Comment on above: Immunofixation shows IgG monoclonal protein with lambdalight chain specificity.[place] appears asymmetrical.Performed at: [employer] [facility] [address] [id number] Director: Melchor Agrawal PhD, Phone: [phone] Immunoglobulin light chains. kappa.free [Mass/volume] in SerumOrdered By: Brook Huddleston on 01-05-2023 Immunoglobulin light chains.kappa.free (S) [Mass/Vol] 20.3 mg/L 3.3-19.4 [facility] Immunoglobulin light chains. kappa.free/Immunoglobulin light chains.lambda.free [MassOrdered By: Brook Huddleston on 01-05-2023 Immunoglobulin light chains.kappa.free/Immun oglobulin light chains.lambda.free (S) [Mass ratio] 1.45 0.26-1.65 [facility] Comment on above: Performed at: [employer] [facility] [address] [id number] Director: Melchor Agrawal PhD, Phone: [phone] Immunoglobulin light chains. lambda.free [Mass/volume] in Serum or PlasmaOrdered By: Brook Huddleston on 01-05-2023 Immunoglobulin light chains.lambda.free [Mass/Vol] 14.0 mg/L 5.7-26.3 [facility] Iron [Mass/volume] in Serum or PlasmaOrdered By: Azrajinder Bakisaaks on 01-05-2023 Iron [Mass/Vol] 104 ug/dL 50-212 [facility] Iron binding capacity [Mass/ volume] in Serum or PlasmaOrdered By: Aziz Bakhous on 01-05-2023 Iron binding capacity [Mass/Vol] 248 ug/dL 255-450 [facility] Iron saturation [Mass Fracti on] in Serum or PlasmaOrdered By: Aziz Bakhous on 01-05-2023 Iron saturation [Mass fraction] 41.9 % 20-50 [facility] Ketones Auto test strip (U) [Mass/Vol]Ordered By: Price Crain on 01-05-2023 Ketones (U) [Mass/Vol] Negative Negative [facility] - UrinalysisOrder ed By: Price Crain on 01-05-2023 Hyaline casts LM Ql (Urine sed) 0-8 [LPF] 0-8 [facility] Lactate dehydrogenase [Enzym atic activity/volume] in Serum or Plasma by Lactate to pyOrdered By: Brook Huddleston on 01-05-2023 LDH Lactate to pyruvate reaction [Catalytic activity/Vol] 158 U/L 140-271 [facility] Magnesium [Mass/volume] in S valerai or PlasmaOrdered By: Price Crain on 01-05-2023 Magnesium [Mass/Vol] 1.9 mg/dL 1.9-2.7 [facility] Nitrite Test strip Ql (U)Ord ered By: Price Crain on 01-05-2023 Nitrite Ql (U) Negative Negative [facility] No Panel InformationOrdered By: Brook Huddleston on 01-05-2023 Urine Random Prot Electrophor Note See comment . [facility] Comment on above: Protein electrophore sis scan will follow via computer,mail, or technical documentation specialist delivery.Performed at: [address] [id number] Director: Melchor Agrawal PhD, Phone: [phone] Protein Electrophoresis M-Anselmo Not observed g/dL Not Observed [facility] Protein Electrophoresis Note See comment . [facility] Comment on above: Protein electrophore sis scan will follow via computer,mail, or technical documentation specialist delivery. Parathyrin.intact [Mass/volu me] in Serum or PlasmaOrdered By: Price Crain on 01-05-2023 Parathyrin.intact [Mass/Vol] 70.1 pg/mL [facility] Phosphate [Mass/volume] in S valeria or PlasmaOrdered By: Price Crain on 01-05-2023 Phosphate [Mass/Vol] 2.9 mg/dL 3.7-7.2 [facility] Protein Auto test strip (U) [Mass/Vol]Ordered By: Price Crain on 01-05-2023 Protein (U) [Mass/Vol] 100 mg/dL Negative [facility] Protein [Mass/volume] in Ser um or PlasmaOrdered By: Brook Huddleston on 01-05-2023 Protein [Mass/Vol] 6.2 g/dL 6.0-8.5 [facility] Protein [Mass/volume] in Uri neOrdered By: Price Crain on 01-05-2023 Protein (U) [Mass/Vol] 85 mg/dL 0-9 [facility] Protein [Mass/volume] in Uri neOrdered By: Brook Huddleston on 01-05-2023 Protein (U) [Mass/Vol] 85.2 mg/dL Not Estab. [facility] Protein.monoclonal/Protein.t otal in 24 hour Urine by ElectrophoresisOrdered By: Brook Huddleston on 01-05-2023 Protein.monoclonal Elph (24H U) [Mass fraction] Not observed % Not Observed [facility] Serum globulin measurement ( mass/volume)Ordered By: Brook Huddleston on 01-05-2023 Globulin (S) [Mass/Vol] 2.7 g/dL 2.2-3.9 [facility] Serum or plasma albumin/glob ulin mass ratioOrdered By: Brook Huddleston on 01-05-2023 Albumin/Globulin [Mass ratio] 1.3 {ratio} 0.7-1.7 [facility] Serum or plasma alpha 1 glob ulin measurement by electrophoresis (mass/volume)Ordered By: Brook Huddleston on 01-05-2023 Alpha 1 globulin Elph [Mass/Vol] 0.3 g/dL 0.0-0.4 [facility] Serum or plasma alpha 2 glob ulin measurement by electrophoresis (mass/volume)Ordered By: Brook Huddleston on 01-05-2023 Alpha 2 globulin Elph [Mass/Vol] 0.8 g/dL 0.4-1.0 [facility] Serum or plasma beta globuli n measurement by electrophoresis (mass/volume)Ordered By: Brook Huddleston on 01-05-2023 Beta globulin Elph [Mass/Vol] 0.9 g/dL 0.7-1.3 [facility] Serum or plasma gamma globul in measurement by electrophoresis (mass/volume)Ordered By: Brook Huddleston on 01-05-2023 Gamma globulin Elph [Mass/Vol] 0.7 g/dL 0.4-1.8 [facility] Specific gravity Auto test s trip (U) [Rel density]Ordered By: Price Crain on 01-05-2023 Specific gravity (U) [Rel density] 1.016 1.001-1.03 0 [facility] Squamous epithelial cells de tection in urine sediment by light microscopyOrdered By: Price Crain on 01-05-2023 Epithelial cells.squamous LM Ql (Urine sed) None seen [HPF] 0-2 [facility] Transferrin [Mass/volume] in Serum or PlasmaOrdered By: Price Crain on 01-05-2023 Transferrin [Mass/Vol] 177 mg/dL 203-362 [facility] Urate [Mass/volume] in Serum or PlasmaOrdered By: Price Crain on 01-05-2023 Urate [Mass/Vol] 4.7 mg/dL 2.4-7.6 [facility] Urine alpha 1 globulin/total protein by electrophoresisOrdered By: Brook Huddleston on 01-05-2023 Alpha 1 globulin Elph (U) [Mass fraction] 4.7 % . [facility] Urine alpha 2 globulin/total protein ratio by electrophoresisOrdered By: Brook Huddleston on 01-05-2023 Alpha 2 globulin Elph (U) [Mass fraction] 11.1 % . [facility] Urine bacteria detection by automated methodOrdered By: Price Crain on 01-05-2023 Bacteria Auto Ql (U) 4+ None Seen [facility] Urine beta globulin measurem ent by electrophoresis (mass/volume)Ordered By: Brook Huddleston on 01-05-2023 Beta globulin Elph (U) [Mass/Vol] 14.6 % . [facility] Urine clarity by refractomet ry automatedOrdered By: Price Crain on 01-05-2023 Clarity Refractometry automated (U) Turbid Clear [facility] Urine culture routineOrdered By: Price Crain on 01-05-2023 Bacteria identified Cx Nom (U) Strep agalactiae - (group b) [facility] Bacteria identified Cx Nom (U) Stenotrophomonas maltophilia [facility] Urine glucose measurement by automated test strip (mass/volume)Ordered By: Price Crain on 01-05-2023 Glucose Auto test strip (U) [Mass/Vol] Normal mg/dL Normal [facility] Urine hemoglobin detection b y automated test stripOrdered By: Price Crain on 01-05-2023 Hemoglobin Auto test strip Ql (U) 3+ Negative [facility] Urine leukocyte esterase det ection by automated test stripOrdered By: Price Crain on 01-05-2023 Leukocyte esterase Auto test strip Ql (U) 4+ Negative [facility] Urine protein/creatinine rat ioOrdered By: Price Crain on 01-05-2023 Protein/Creatinine (U) [Ratio] 833 mg/g{Cre} 0-200 [facility] Urobilinogen Auto test strip (U) [Mass/Vol]Ordered By: Price Crain on 01-05-2023 Urobilinogen (U) [Mass/Vol] Normal mg/dL Normal [facility] Vitamin D+Metabolites [Mass/ volume] in Serum or PlasmaOrdered By: Price Crain on 01-05-2023 Vitamin D+Metabolites [Mass/Vol] 40.8 ng/mL 30-100 [facility] Comment on above: VITAMIN D STATUS 25( [...] sed) None seen [HPF] None Se en [facility] pH Auto test strip (U)Ordere d By: Price Crain on 01-05-2023 pH (U) 6.0 [pH] 5.0-9.0 [facility] Calcium [Mass/volume] in Ser um or PlasmaOrdered By: Orquidea Cortez on 12-17-2022 Calcium [Mass/Vol] 8.7 mg/dL 8.6-10.3 [facility] Carbon dioxide, total [Moles /volume] in Serum or PlasmaOrdered By: Orquidea Cortez on 12-17-2022 CO2 [Moles/Vol] 21.7 mmol/L 21.0-31.0 [facility] Chloride [Moles/volume] in S valeria or PlasmaOrdered By: Orquidea Cortez on 12-17-2022 Chloride [Moles/Vol] 107 mmol/L 98-107 [facility] Creatinine [Mass/volume] in Serum or PlasmaOrdered By: Orquidea Cortez on 12-17-2022 Creatinine [Mass/Vol] 1.84 mg/dL 0.70-1.30 [facility] Glucose [Mass/volume] in Ser um or PlasmaOrdered By: Orquidea Cortez on 12-17-2022 Glucose [Mass/Vol] 194 mg/dL 70-100 [facility] Comment on above: ADA recommended refe rence rangeRandom Glucose Reference Range is dependent on time and content of last meal. Glucose of more than 200 mg/dL in a nonstressed, ambulatory subject supports the diagnosis of Diabetes Mellitus. No Panel InformationOrdered By: Orquidea Cortez on 12-17-2022 Estimated GFR (CKD-EPI) 37.293 mL/Min [facility] Creatinine Clearance (Chem N/A [facility] Potassium [Moles/volume] in Serum or PlasmaOrdered By: Orquidea Cortez on 12-17-2022 Potassium [Moles/Vol] 5.3 mmol/L 3.5-5.1 [facility] Serum or plasma anion gap de terminationOrdered By: Orquidea Cortez on 12-17-2022 Anion gap [Moles/Vol] 12.6 mmol/L 6.0-15.0 [facility] Sodium [Moles/volume] in Ser um or PlasmaOrdered By: Orquidea Cortez on 12-17-2022 Sodium [Moles/Vol] 136 mmol/L 136-145 [facility] Urea nitrogen [Mass/volume] in Serum or PlasmaOrdered By: Orquidea Cortez on 12-17-2022 Urea nitrogen [Mass/Vol] 22 mg/dL 7-25 [facility] Alanine aminotransferase [En zymatic activity/volume] in Serum or PlasmaOrdered By: Brook Huddleston on 12-11-2022 ALT [Catalytic activity/Vol] 15 U/L 7-52 [facility] Albumin [Mass/volume] in Ser um or Plasma by Bromocresol green (BCG) dye binding methoOrdered By: Brook Huddlesotn on 12-11-2022 Albumin BCG dye [Mass/Vol] 3.8 g/dL 3.5-5.7 [facility] Alkaline phosphatase [Enzyma tic activity/volume] in Serum or PlasmaOrdered By: Brook Huddleston on 12-11-2022 ALP [Catalytic activity/Vol] 91 U/L 34-104 [facility] Anisocytosis LM Ql (Bld)Orde red By: Brook Huddleston on 12-11-2022 Anisocytosis Ql (Bld) Slight Fir [facility] Anisocytosis Ql (Bld) Anisocytosis [Pres ence] in Blood by Light microscopy [facility] Aspartate aminotransferase [ Enzymatic activity/volume] in Serum or PlasmaOrdered By: Brook Huddleston on 12-11-2022 AST [Catalytic activity/Vol] 12 U/L 13-39 [facility] Basophils Auto (Bld) [#/Vol] Ordered By: Brook Huddleston on 12-11-2022 Basophils (Bld) [#/Vol] 0.0 10*3/uL 0.0-0.2 [facility] Basophils/100 WBC Auto (Bld) Ordered By: Brook Huddleston on 12-11-2022 Basophils/100 WBC (Bld) 0.2 % . [facility] Bilirubin.total [Mass/volume ] in Serum or PlasmaOrdered By: Brook Huddleston on 12-11-2022 Bilirubin [Mass/Vol] 0.4 mg/dL 0.3-1.0 [facility] Calcium [Mass/volume] in Ser um or PlasmaOrdered By: Brook Huddleston on 12-11-2022 Calcium [Mass/Vol] 8.4 mg/dL 8.6-10.3 [facility] Carbon dioxide, total [Moles /volume] in Serum or PlasmaOrdered By: Brook Huddleston on 12-11-2022 CO2 [Moles/Vol] 22.6 mmol/L 21.0-31.0 [facility] Chloride [Moles/volume] in S valeria or PlasmaOrdered By: Brook Huddleston on 12-11-2022 Chloride [Moles/Vol] 100 mmol/L 98-107 [facility] Creatinine [Mass/volume] in Serum or PlasmaOrdered By: Brook Huddleston on 12-11-2022 Creatinine [Mass/Vol] 1.87 mg/dL 0.70-1.30 [facility] Eosinophils Auto (Bld) [#/Vo l]Ordered By: Brook Huddleston on 12-11-2022 Eosinophils (Bld) [#/Vol] 0.0 10*3/uL 0.0-0.45 [facility] Eosinophils/100 WBC Auto (Bl d)Ordered By: Brook Huddleston on 12-11-2022 Eosinophils/100 WBC (Bld) 0.1 % . [facility] Erythrocyte distribution wid th Auto (RBC) [Ratio]Ordered By: Brook Huddleston on 12-11-2022 Erythrocyte distribution width (RBC) [Ratio] 16.0 % 12.0-14.8 [facility] Globulin Calc (S) [Mass/Vol] Ordered By: Brook Huddleston on 12-11-2022 Globulin (S) [Mass/Vol] 2.4 g/dL [facility] Glucose [Mass/volume] in Ser um or PlasmaOrdered By: Brook Huddleston on 12-11-2022 Glucose [Mass/Vol] 349 mg/dL 70-100 [facility] Comment on above: ADA recommended refe rence rangeRandom Glucose Reference Range is dependent on time and content of last meal. Glucose of more than 200 mg/dL in a nonstressed, ambulatory subject supports the diagnosis of Diabetes Mellitus. Hematocrit Auto (Bld) [Volum e fraction]Ordered By: Brook Huddleston on 12-11-2022 Hematocrit (Bld) [Volume fraction] 27.8 % 38.8-50.0 [facility] Hemoglobin [Mass/volume] in BloodOrdered By: Brook Huddleston on 12-11-2022 Hemoglobin (Bld) [Mass/Vol] 9.3 g/dL 13.0-17.0 [facility] Leukocytes [#/volume] correc lizbet for nucleated erythrocytes in Blood by Automated counOrdered By: Brook Huddleston on 12-11-2022 WBC corrected for nucl RBC Auto (Bld) [#/Vol] 10.2 10*3/uL 4.1-10.5 [facility] Lymphocytes Auto (Bld) [#/Vo l]Ordered By: Brook Huddleston on 12-11-2022 Lymphocytes (Bld) [#/Vol] 0.7 10*3/uL 1.00-4.8 [facility] Lymphocytes/100 WBC Auto (Bl d)Ordered By: Brook Huddleston on 12-11-2022 Lymphocytes/100 WBC (Bld) 7.2 % . [facility] MCH Auto (RBC) [Entitic mass ]Ordered By: Broko Huddleston on 12-11-2022 MCH (RBC) [Entitic mass] 38.0 pg 27.5-35.2 [facility] MCHC Auto (RBC) [Mass/Vol]Or dered By: Brook Huddleston on 12-11-2022 MCHC (RBC) [Mass/Vol] 33.6 g/dL 32.5-35.6 [facility] MCV Auto (RBC) [Entitic vol] Ordered By: Brook Huddleston on 12-11-2022 MCV (RBC) [Entitic vol] 113.0 fL 83.5-101 [facility] Macrocytes LM Ql (Bld)Ordere d By: Brook Huddleston on 12-11-2022 Macrocytes Ql (Bld) Slight [facility] Macrocytes Ql (Bld) Macrocytes [Presence ] in Blood by Light microscopy [facility] Monocytes Auto (Bld) [#/Vol] Ordered By: Brook Huddleston on 12-11-2022 Monocytes (Bld) [#/Vol] 0.5 10*3/uL 0.0-0.8 [facility] Monocytes/100 WBC Auto (Bld) Ordered By: Brook Huddleston on 12-11-2022 Monocytes/100 WBC (Bld) 5.2 % . [facility] Neutrophils Auto (Bld) [#/Vo l]Ordered By: Brook Huddleston on 12-11-2022 Neutrophils (Bld) [#/Vol] 8.8 10*3/uL 1.8-7.7 [facility] Neutrophils/100 WBC Auto (Bl d)Ordered By: Brook Huddleston on 12-11-2022 Neutrophils/100 WBC (Bld) 87.3 % . [facility] No Panel InformationOrdered By: Brook Huddleston on 12-11-2022 Estimated GFR (CKD-EPI) 36.576 mL/Min [facility] Creatinine Clearance (Chem 37.68 [facility] Nucleated erythrocytes [Pres ence] in Blood by Automated countOrdered By: Brook Huddleston on 12-11-2022 Nucleated RBC Auto Ql (Bld) 0.0 /100{WBC} 0-0.5 [facility] Platelet adequacy [Presence] in Blood by Light microscopyOrdered By: Brook Huddleston on 12-11-2022 Platelets LM Ql (Bld) Decreased Low Normal [facility] Platelets LM Ql (Bld) Platelet adequacy [Presence] in Blood by Light microscopy Low Normal [facility] Platelet mean volume Auto (B ld) [Entitic vol]Ordered By: Brook Huddleston on 12-11-2022 Platelet mean volume (Bld) [Entitic vol] 9.8 fL 6.6-10.1 [facility] Platelet morphology finding [Identifier] in BloodOrdered By: Brook Huddleston on 12-11-2022 Platelet morphology finding Nom (Bld) Normal Normal [facility] Platelet morphology finding Nom (Bld) Platelet morphology finding [Identifier] in Blood Normal [facility] Platelets Auto (Bld) [#/Vol] Ordered By: Brook Huddleston on 12-11-2022 Platelets (Bld) [#/Vol] 117 10*3/uL 150-450 [facility] Potassium [Moles/volume] in Serum or PlasmaOrdered By: Brook Huddleston on 12-11-2022 Potassium [Moles/Vol] 5.0 mmol/L 3.5-5.1 [facility] Protein [Mass/volume] in Ser um or PlasmaOrdered By: Brook Huddleston on 12-11-2022 Protein [Mass/Vol] 6.2 g/dL 6.4-8.9 [facility] RBC Auto (Bld) [#/Vol]Ordere d By: Brook Huddleston on 12-11-2022 RBC (Bld) [#/Vol] 2.46 10*6/uL 3.90-5.60 [facility] RBC morphologyOrdered By: Am y Flaquito on 12-11-2022 RBC morphology finding Nom (Bld) N/A [facility] RBC morphology finding Nom (Bld) RBC morphology [facility] Schistocytes [Presence] in B lood by Light microscopyOrdered By: Brook Huddleston on 12-11-2022 Schistocytes LM Ql (Bld) Slight [facility] Schistocytes LM Ql (Bld) Schistocytes [Presence] in Blood by Light microscopy [facility] Serum or plasma albumin/glob ulin mass ratioOrdered By: Brook Huddleston on 12-11-2022 Albumin/Globulin [Mass ratio] 1.6 {ratio} [facility] Serum or plasma anion gap de terminationOrdered By: Brook Huddleston on 12-11-2022 Anion gap [Moles/Vol] 13.4 mmol/L 6.0-15.0 [facility] Sodium [Moles/volume] in Ser um or PlasmaOrdered By: Brook Huddleston on 12-11-2022 Sodium [Moles/Vol] 131 mmol/L 136-145 [facility] Urea nitrogen [Mass/volume] in Serum or PlasmaOrdered By: Brook Huddleston on 12-11-2022 Urea nitrogen [Mass/Vol] 30 mg/dL 7-25 [facility] WBC Auto (Bld) [#/Vol]Ordere d By: Brook Huddleston on 12-11-2022 WBC (Bld) [#/Vol] 10.2 10*3/uL 4.1-10.5 [facility] POINT OF CARE GLUCOSEon 11-16 Glucose [Mass/Vol] 284 mg/dL Critically high 74-106 T [facility] Comment on above: Performed By: #### P TT, PT #### [facility] [address] [address] [address] Lydia Merritt CBC AUTO DIFFon 12-08-2022 BASO # 0.0 103/ul Normal 0.0-0.1 [facility] Comment on above: Performed By: #### P TT, PT #### [facility] [address] [place] [address] Dr. Lydia Merritt Basophils/100 WBC (Bld) 0.1 % Critically low 0.2-2.0 [facility] Comment on above: Performed By: #### P TT, PT #### [facility] [address] [place] [address] Dr. Lydia Merritt EO # 0.2 103/ul Normal 0.0-0.7 [facility] Comment on above: Performed By: #### P TT, PT #### [facility] [address] [place] [address] Dr. Lydia Merritt Eosinophils/100 WBC (Bld) 1.6 % Normal 0.9-7.0 [facility] Comment on above: Performed By: #### P TT, PT #### [facility] [address] [place] [address] Dr. Lydia Merritt Erythrocyte distribution width (RBC) [Ratio] 15.2 % Critically high 11.0-15.0 [facility] Comment on above: Performed By: #### P TT, PT #### [facility] [address] [place] [address] Dr. Lydia Merritt Hematocrit (Bld) [Volume fraction] 30.6 % Critically low 42.0-54.0 [facility] Comment on above: Performed By: #### P TT, PT #### [facility] [address] [place] [address] Dr. Lydia Merritt Hemoglobin (Bld) [Mass/Vol] 10.2 g/dL Critically low 14.0-18.0 [facility] Comment on above: Performed By: #### P TT, PT #### [facility] [address] [place] [address] Dr. Lydia Merritt IG # 0.05 10e3/ul Critically high 0.00-0.03 [facility] Comment on above: Performed By: #### P TT, PT #### [facility] [address] [place] [address] Dr. Lydia Merritt IG % 0.5 % Normal 0.0-0.5 [facility] Comment on above: Performed By: #### P TT, PT #### [facility] [address] [place] [address] Dr. Lydia Merritt LYMPH # 0.8 103/ul Critically low 1.2-3.8 [facility] Comment on above: Performed By: #### P TT, PT #### [facility] [address] [place] [address] Dr. Lydia Merritt Lymphocytes/100 WBC (Bld) 8.2 % Critically low 20.5-60.0 [facility] Comment on above: Performed By: #### P TT, PT #### [facility] [address] [place] [address] Dr. Lydia Merritt MANUAL DIFF REQ NO Normal [facility] Comment on above: Performed By: #### P TT, PT #### [facility] [address] [place] [address] Dr. Lydia Merritt MCH (RBC) [Entitic mass] 37.9 pg Critically high 25.9-34.0 [facility] Comment on above: Performed By: #### P TT, PT #### [facility] [address] [place] [address] Dr. Lydia Merritt MCHC (RBC) [Mass/Vol] 33.3 g/dL Normal 29.9-35.2 [facility] Comment on above: Performed By: #### P TT, PT #### [facility] [address] [place] [address] Dr. Lydia Merritt MCV (RBC) [Entitic vol] 113.8 fL Critically high 80.0-94 .0 [facility] Comment on above: Result Comment: 2+ m acrocytosis Performed By: #### P TT, PT #### [facility] [address] [place] [address] Dr. Lydia Merritt MONO # 0.5 103/ul Normal 0.3-0.8 [facility] Comment on above: Performed By: #### P TT, PT #### [facility] [address] [place] [address] Dr. Lydia Merritt Monocytes/100 WBC (Bld) 5.4 % Normal 1.7-12.0 [facility] Comment on above: Performed By: #### P TT, PT #### [facility] [address] [place] [address] Dr. Lydia Merritt NEUT # 7.9 103/ul Critically high 1.4-6.5 [facility] Comment on above: Performed By: #### P TT, PT #### [facility] [address] [place] [address] Dr. Lydia Merritt Neutrophils/100 WBC (Bld) 84.2 % Critically high 43.0-75.0 [facility] Comment on above: Performed By: #### P TT, PT #### [facility] [address] [place] [address] Dr. Lydia Merritt Platelet mean volume (Bld) [Entitic vol] 10.9 fL Normal 9.5-13.5 [facility] Comment on above: Performed By: #### P TT, PT #### [facility] [address] [place] [address] Dr. Lydia Merritt PLT 117 103/ul Critically low 150-450 [facility] Comment on above: Performed By: #### P TT, PT #### [facility] [address] [place] [address] Dr. Lydia Merritt RBC 2.69 106/ul Critically low 4.70-6.10 [facility] Comment on above: Performed By: #### P TT, PT #### [facility] [address] [place] [address] Dr. Lydia Merritt WBC 9.4 103/ul Normal 4.0-11.0 [facility] Comment on above: Performed By: #### P TT, PT #### [facility] [address] [place] [address] Dr. Lydia Merritt PROF CHEM 8 (BAS METB)on Anion gap [Moles/Vol] 14.6 mmol/L Normal Th [facility] Comment on above: Performed By: #### B MP #### [facility] [address] [place] [address] Dr. Lydia Merritt Calcium [Mass/Vol] 9.1 mg/dL Normal 8.5-10.1 [facility] Comment on above: Performed By: #### B MP #### [facility] [address] [address] [address] Lydia Merritt Chloride [Moles/Vol] 101 mmol/L Normal 98-107 [facility] Comment on above: Performed By: #### B MP #### [facility] [address] [place] [address] Dr. Lyida Merritt CO2 [Moles/Vol] 25.4 mmol/L Normal 21.0-32.0 [facility] Comment on above: Performed By: #### B MP #### [facility] [address] [place] [address] Dr. Lydia Merritt Creatinine [Mass/Vol] 1.78 mg/dL Critically high 0.70-1.30 [facility] Comment on above: Performed By: #### B MP #### [facility] [address] [place] [address] Dr. Lydia Merritt EGFR-AF MONGOLIAN 45 mL/min/1.73m2 Critically low >=60 [facility] Comment on above: Performed By: #### B MP #### [facility] [address] [place] [address] Dr. Lydia Merritt EGFR-NON AF MONGOLIAN 37 mL/min/1.73m2 Critically low >=60 [facility] Comment on above: Performed By: #### B MP #### [facility] [address] [place] [address] Dr. Lydia Merritt Glucose [Mass/Vol] 413 mg/dL Critically high 74-106 [facility] Comment on above: Performed By: #### B MP #### [facility] [address] [place] [address] Dr. Lydia Merritt Potassium [Moles/Vol] 5.0 mmol/L Normal 3.5-5.1 [facility] Comment on above: Performed By: #### B MP #### [facility] [address] [place] [address] Dr. Lydia Merritt Sodium [Moles/Vol] 136 mmol/L Normal 136-145 [facility] Comment on above: Performed By: #### B MP #### [facility] [address] [place] [address] Dr. Lydia Merritt Urea nitrogen [Mass/Vol] 30.0 mg/dL Critically high 7.0-18.0 [facility] Comment on above: Performed By: #### B MP #### [facility] [address] [place] [address] Dr. Lydia Merritt Urea nitrogen/Creatinine [Mass ratio] 16.9 mg/mg Normal [facility] Comment on above: Performed By: #### B MP #### [facility] [address] [place] [address] Dr. Lydia Merritt PROTIMEon 12-08-2022 INR Coag (PPP) [Relative time] 0.95 {INR} Normal [facility] Comment on above: Performed By: #### P TT, PT #### [facility] [address] [place] [address] Dr. Lydia Merritt INR GUIDELINES SEE BELOW Normal [facility] Comment on above: Result Comment: DILLON RED INR: 2.0 - 3.0 CONDITIONS NOT LISTED BELOW 2.5 - 3.5 FOR PROSTHETIC HEART VALVE REPLACEMENT 2.5 - 3.5 RECURRENT THROMBOSIS Performed By: #### P TT, PT #### [facility] [address] [place] [address] Dr. Lydia Merritt PT Coag (PPP) [Time] 10.1 s Normal 9.0-11.6 [facility] Comment on above: Performed By: #### P TT, PT #### [facility] [address] [place] [address] Dr. Lydia Merritt PTTon 12-08-2022 aPTT Coag (Bld) [Time] 22.6 s Normal 22.3-36.2 [facility] Comment on above: Performed By: #### P TT, PT #### [facility] [address] [address] [address] Lydia Merritt Calcium [Mass/volume] in Ser um or PlasmaOrdered By: Orquidea Cortez on 12-01-2022 Calcium [Mass/Vol] 8.8 mg/dL 8.6-10.3 [facility] Carbon dioxide, total [Moles /volume] in Serum or PlasmaOrdered By: Orquidea Cortez on 12-01-2022 CO2 [Moles/Vol] 23.9 mmol/L 21.0-31.0 [facility] Chloride [Moles/volume] in S valeria or PlasmaOrdered By: Orquidea Cortez on 12-01-2022 Chloride [Moles/Vol] 104 mmol/L 98-107 [facility] Creatinine [Mass/volume] in Serum or PlasmaOrdered By: Orquidea Cortez on 12-01-2022 Creatinine [Mass/Vol] 1.77 mg/dL 0.70-1.30 [facility] Glucose [Mass/volume] in Ser um or PlasmaOrdered By: Orquidea Cortez on 12-01-2022 Glucose [Mass/Vol] 208 mg/dL 70-100 [facility] Comment on above: ADA recommended refe rence rangeRandom Glucose Reference Range is dependent on time and content of last meal. Glucose of more than 200 mg/dL in a nonstressed, ambulatory subject supports the diagnosis of Diabetes Mellitus. No Panel InformationOrdered By: Orquidea Cortez on 12-01-2022 Estimated GFR (CKD-EPI) 39.069 mL/Min [facility] Creatinine Clearance (Chem N/A [facility] Potassium [Moles/volume] in Serum or PlasmaOrdered By: Orquidea Cortez on 12-01-2022 Potassium [Moles/Vol] 4.4 mmol/L 3.5-5.1 [facility] Serum or plasma anion gap de terminationOrdered By: Orquidea Cortez on 12-01-2022 Anion gap [Moles/Vol] 12.5 mmol/L 6.0-15.0 [facility] Sodium [Moles/volume] in Ser um or PlasmaOrdered By: Orquidea Cortez on 12-01-2022 Sodium [Moles/Vol] 136 mmol/L 136-145 [facility] Urea nitrogen [Mass/volume] in Serum or PlasmaOrdered By: Orquidea Cortez on 12-01-2022 Urea nitrogen [Mass/Vol] 40 mg/dL 7- [facility] Alanine aminotransferase [En zymatic activity/volume] in Serum or PlasmaOrdered By: Brook Huddleston on 11-27-2022 ALT [Catalytic activity/Vol] 22 U/L 7-52 [facility] Albumin [Mass/volume] in Ser um or Plasma by Bromocresol green (BCG) dye binding methoOrdered By: Brook Huddleston on 11-27-2022 Albumin BCG dye [Mass/Vol] 4.1 g/dL 3.5-5.7 [facility] Alkaline phosphatase [Enzyma tic activity/volume] in Serum or PlasmaOrdered By: Brook Huddleston on 11-27-2022 ALP [Catalytic activity/Vol] 140 U/L 34-104 [facility] Anisocytosis LM Ql (Bld)Orde red By: Brook Huddleston on 11-27-2022 Anisocytosis Ql (Bld) Moderate [facility] Aspartate aminotransferase [ Enzymatic activity/volume] in Serum or PlasmaOrdered By: Brook Huddleston on 11-27-2022 AST [Catalytic activity/Vol] 17 U/L 13-39 [facility] Basophils Auto (Bld) [#/Vol] Ordered By: Brook Huddleston on 11-27-2022 Basophils (Bld) [#/Vol] 0.0 10*3/uL 0.0-0.2 [facility] Basophils/100 WBC Auto (Bld) Ordered By: Brook Huddleston on 11-27-2022 Basophils/100 WBC (Bld) 0.5 % . [facility] Bilirubin.total [Mass/volume ] in Serum or PlasmaOrdered By: Brook Huddleston on 11-27-2022 Bilirubin [Mass/Vol] 0.5 mg/dL 0.3-1.0 [facility] Calcium [Mass/volume] in Ser um or PlasmaOrdered By: Brook Huddleston on 11-27-2022 Calcium [Mass/Vol] 8.8 mg/dL 8.6-10.3 [facility] Carbon dioxide, total [Moles /volume] in Serum or PlasmaOrdered By: Brook Huddleston on 11-27-2022 CO2 [Moles/Vol] 22.7 mmol/L 21.0-31.0 [facility] Chloride [Moles/volume] in S valeria or PlasmaOrdered By: Brook Huddleston on 11-27-2022 Chloride [Moles/Vol] 105 mmol/L 98-107 [facility] Creatinine [Mass/volume] in Serum or PlasmaOrdered By: Brook Huddleston on 11-27-2022 Creatinine [Mass/Vol] 2.23 mg/dL 0.70-1.30 [facility] Eosinophils Auto (Bld) [#/Vo l]Ordered By: Brook Huddleston on 11-27-2022 Eosinophils (Bld) [#/Vol] 0.2 10*3/uL 0.0-0.45 [facility] Eosinophils/100 WBC Auto (Bl d)Ordered By: Brook Huddleston on 11-27-2022 Eosinophils/100 WBC (Bld) 3.1 % . [facility] Erythrocyte distribution wid th Auto (RBC) [Ratio]Ordered By: Brook Huddleston on 11-27-2022 Erythrocyte distribution width (RBC) [Ratio] 16.3 % 12.0-14.8 [facility] Globulin Calc (S) [Mass/Vol] Ordered By: Brook Huddleston on 11-27-2022 Globulin (S) [Mass/Vol] 2.6 g/dL [facility] Glucose [Mass/volume] in Ser um or PlasmaOrdered By: Brook Huddleston on 11-27-2022 Glucose [Mass/Vol] 219 mg/dL 70-100 [facility] Comment on above: ADA recommended refe rence rangeRandom Glucose Reference Range is dependent on time and content of last meal. Glucose of more than 200 mg/dL in a nonstressed, ambulatory subject supports the diagnosis of Diabetes Mellitus. Hematocrit Auto (Bld) [Volum e fraction]Ordered By: Brook Huddleston on 11-27-2022 Hematocrit (Bld) [Volume fraction] 30.2 % 38.8-50.0 [facility] Hemoglobin [Mass/volume] in BloodOrdered By: Brook Huddleston on 11-27-2022 Hemoglobin (Bld) [Mass/Vol] 10.2 g/dL 13.0-17.0 [facility] Leukocytes [#/volume] correc lizbet for nucleated erythrocytes in Blood by Automated counOrdered By: Brook Huddleston on 11-27-2022 WBC corrected for nucl RBC Auto (Bld) [#/Vol] 7.1 10*3/uL 4.1-10.5 [facility] Lymphocytes Auto (Bld) [#/Vo l]Ordered By: Brook Huddleston on 11-27-2022 Lymphocytes (Bld) [#/Vol] 0.9 10*3/uL 1.00-4.8 [facility] Lymphocytes/100 WBC Auto (Bl d)Ordered By: Brook Huddleston on 11-27-2022 Lymphocytes/100 WBC (Bld) 12.7 % . [facility] MCH Auto (RBC) [Entitic mass ]Ordered By: Brook Huddleston on 11-27-2022 MCH (RBC) [Entitic mass] 38.1 pg 27.5-35.2 [facility] MCHC Auto (RBC) [Mass/Vol]Or dered By: Brook Huddleston on 11-27-2022 MCHC (RBC) [Mass/Vol] 33.8 g/dL 32.5-35.6 [facility] MCV Auto (RBC) [Entitic vol] Ordered By: Brook Huddleston on 11-27-2022 MCV (RBC) [Entitic vol] 112.7 fL 83.5-101 F [facility] Macrocytes LM Ql (Bld)Ordere d By: Brook Huddleston on 11-27-2022 Macrocytes Ql (Bld) Slight [facility] Monocytes Auto (Bld) [#/Vol] Ordered By: Brook Huddleston on 11-27-2022 Monocytes (Bld) [#/Vol] 0.6 10*3/uL 0.0-0.8 [facility] Monocytes/100 WBC Auto (Bld) Ordered By: Brook Huddleston on 11-27-2022 Monocytes/100 WBC (Bld) 7.7 % . [facility] Neutrophils Auto (Bld) [#/Vo l]Ordered By: Brook Huddleston on 11-27-2022 Neutrophils (Bld) [#/Vol] 5.4 10*3/uL 1.8-7.7 [facility] Neutrophils/100 WBC Auto (Bl d)Ordered By: Brook Huddleston on 11-27-2022 Neutrophils/100 WBC (Bld) 76.0 % . [facility] No Panel InformationOrdered By: Brook Huddleston on 11-27-2022 Estimated GFR (CKD-EPI) 29.610 mL/Min [facility] Creatinine Clearance (Chem 31.59 [facility] Nucleated erythrocytes [Pres ence] in Blood by Automated countOrdered By: Brook Huddleston on 11-27-2022 Nucleated RBC Auto Ql (Bld) 0.1 /100{WBC} 0-0.5 [facility] Ovalocyte detectionOrdered B y: Brook Huddleston on 11-27-2022 Ovalocytes LM Ql (Bld) Slight [facility] Ovalocytes LM Ql (Bld) Ovalocyte detection [facility] Platelet adequacy [Presence] in Blood by Light microscopyOrdered By: Brook Huddleston on 11-27-2022 Platelets LM Ql (Bld) Decreased Normal [facility] Platelet mean volume Auto (B ld) [Entitic vol]Ordered By: Brook Huddleston on 11-27-2022 Platelet mean volume (Bld) [Entitic vol] 9.6 fL 6.6-10.1 [facility] Platelet morphology finding [Identifier] in BloodOrdered By: Brook Huddleston on 11-27-2022 Platelet morphology finding Nom (Bld) Normal Normal [facility] Platelets Auto (Bld) [#/Vol] Ordered By: Brook Huddleston on 11-27-2022 Platelets (Bld) [#/Vol] 129 10*3/uL 150-450 [facility] Poikilocytosis [Presence] in Blood by Light microscopyOrdered By: Brook Huddleston on 11-27-2022 Poikilocytosis LM Ql (Bld) Moderate [facility] Poikilocytosis LM Ql (Bld) Poikilocytosis [Presence] in Blood by Light microscopy [facility] Polychromasia [Presence] in Blood by Light microscopyOrdered By: Brook Huddleston on 11-27-2022 Polychromasia LM Ql (Bld) Slight [facility] Polychromasia LM Ql (Bld) Polychromasia [Presence] in Blood by Light microscopy [facility] Potassium [Moles/volume] in Serum or PlasmaOrdered By: Brook Huddleston on 11-27-2022 Potassium [Moles/Vol] 5.3 mmol/L 3.5-5.1 [facility] Protein [Mass/volume] in Ser um or PlasmaOrdered By: Brook Huddleston on 11-27-2022 Protein [Mass/Vol] 6.7 g/dL 6.4-8.9 [facility] RBC Auto (Bld) [#/Vol]Ordere d By: Brook Huddleston on 11-27-2022 RBC (Bld) [#/Vol] 2.68 10*6/uL 3.90-5.60 [facility] RBC morphologyOrdered By: Black Huddleston on 11-27-2022 RBC morphology finding Nom (Bld) N/A [facility] Serum or plasma albumin/glob ulin mass ratioOrdered By: Brook Huddleston on 11-27-2022 Albumin/Globulin [Mass ratio] 1.6 {ratio} [facility] Serum or plasma anion gap de terminationOrdered By: Brook Huddleston on 11-27-2022 Anion gap [Moles/Vol] 13.6 mmol/L 6.0-15.0 [facility] Sodium [Moles/volume] in Ser um or PlasmaOrdered By: Brook Huddleston on 11-27-2022 Sodium [Moles/Vol] 136 mmol/L 136-145 [facility] Teardrop cell detectionOrder ed By: Brook Huddleston on 11-27-2022 Dacrocytes LM Ql (Bld) Slight Fi [facility] Dacrocytes LM Ql (Bld) Teardrop cell detection [facility] Urea nitrogen [Mass/volume] in Serum or PlasmaOrdered By: Brook Huddleston on 11-27-2022 Urea nitrogen [Mass/Vol] 40 mg/dL 7-25 [facility] WBC Auto (Bld) [#/Vol]Ordere d By: Brook Huddleston on 11-27-2022 WBC (Bld) [#/Vol] 7.1 10*3/uL 4.1-10.5 [facility] Calcium [Mass/volume] in Ser um or PlasmaOrdered By: Orquidea Cortez on 11-17-2022 Calcium [Mass/Vol] 9.5 mg/dL 8.6-10.3 [facility] Carbon dioxide, total [Moles /volume] in Serum or PlasmaOrdered By: Orquidea Cortez on 11-17-2022 CO2 [Moles/Vol] 23.9 mmol/L 21.0-31.0 [facility] Chloride [Moles/volume] in S valeria or PlasmaOrdered By: Orquidea Cortez on 11-17-2022 Chloride [Moles/Vol] 104 mmol/L 98-107 [facility] Creatinine [Mass/volume] in Serum or PlasmaOrdered By: Orquidea Cortez on 11-17-2022 Creatinine [Mass/Vol] 1.87 mg/dL 0.70-1.30 [facility] Glucose [Mass/volume] in Ser um or PlasmaOrdered By: Orquidea Cortez on 11-17-2022 Glucose [Mass/Vol] 133 mg/dL 70-100 [facility] Comment on above: ADA recommended refe rence rangeRandom Glucose Reference Range is dependent on time and content of last meal. Glucose of more than 200 mg/dL in a nonstressed, ambulatory subject supports the diagnosis of Diabetes Mellitus. No Panel InformationOrdered By: Orquidea Cortez on 11-17-2022 Estimated GFR (CKD-EPI) 36.576 mL/Min [facility] Creatinine Clearance (Chem N/A [facility] Potassium [Moles/volume] in Serum or PlasmaOrdered By: Orquidea Cortez on 11-17-2022 Potassium [Moles/Vol] 4.8 mmol/L 3.5-5.1 [facility] Serum or plasma anion gap de terminationOrdered By: Orquidea Cortez on 11-17-2022 Anion gap [Moles/Vol] 12.9 mmol/L 6.0-15.0 [facility] Sodium [Moles/volume] in Ser um or PlasmaOrdered By: Orquidea Cortez on 11-17-2022 Sodium [Moles/Vol] 136 mmol/L 136-145 [facility] Urea nitrogen [Mass/volume] in Serum or PlasmaOrdered By: Orquidea Cortez on 11-17-2022 Urea nitrogen [Mass/Vol] 27 mg/dL 7-25 [facility] Alanine aminotransferase [En zymatic activity/volume] in Serum or PlasmaOrdered By: Brook Huddleston on 11-11-2022 ALT [Catalytic activity/Vol] 18 U/L 7-52 [facility] Albumin [Mass/volume] in Ser um or Plasma by Bromocresol green (BCG) dye binding methoOrdered By: Brook Huddleston on 11-11-2022 Albumin BCG dye [Mass/Vol] 4.2 g/dL 3.5-5.7 [facility] Alkaline phosphatase [Enzyma tic activity/volume] in Serum or PlasmaOrdered By: Brook Huddleston on 11-11-2022 ALP [Catalytic activity/Vol] 97 U/L 34-104 [facility] Anisocytosis LM Ql (Bld)Orde red By: Brook Huddleston on 11-11-2022 Anisocytosis Ql (Bld) Slight [facility] Aspartate aminotransferase [ Enzymatic activity/volume] in Serum or PlasmaOrdered By: Brook Huddleston on 11-11-2022 AST [Catalytic activity/Vol] 17 U/L 13-39 [facility] Basophils Auto (Bld) [#/Vol] Ordered By: Brook Huddleston on 11-11-2022 Basophils (Bld) [#/Vol] N/A [facility] Basophils/100 WBC Auto (Bld) Ordered By: Brook Huddleston on 11-11-2022 Basophils/100 WBC (Bld) N/A [facility] Bilirubin.total [Mass/volume ] in Serum or PlasmaOrdered By: Brook Huddleston on 11-11-2022 Bilirubin [Mass/Vol] 0.4 mg/dL 0.3-1.0 [facility] Calcium [Mass/volume] in Ser um or PlasmaOrdered By: Brook Huddleston on 11-11-2022 Calcium [Mass/Vol] 9.2 mg/dL 8.6-10.3 [facility] Carbon dioxide, total [Moles /volume] in Serum or PlasmaOrdered By: Brook Huddleston on 11-11-2022 CO2 [Moles/Vol] 22.1 mmol/L 21.0-31.0 [facility] Chloride [Moles/volume] in S valeria or PlasmaOrdered By: Brook Huddleston on 11-11-2022 Chloride [Moles/Vol] 107 mmol/L 98-107 [facility] Creatinine [Mass/volume] in Serum or PlasmaOrdered By: Brook Huddleston on 11-11-2022 Creatinine [Mass/Vol] 2.05 mg/dL 0.70-1.30 [facility] Eosinophils Auto (Bld) [#/Vo l]Ordered By: Brook Huddleston on 11-11-2022 Eosinophils (Bld) [#/Vol] N/A [facility] Eosinophils/100 WBC Auto (Bl d)Ordered By: Brook Huddleston on 11-11-2022 Eosinophils/100 WBC (Bld) N/A [facility] Eosinophils/100 WBC Manual c nt (Bld)Ordered By: Brook Huddleston on 11-11-2022 Eosinophils/100 WBC (Bld) 3 % 1-3 [facility] Eosinophils/100 WBC (Bld) Eosinophils/100 leukocytes in Blood by Manual count 1-3 [facility] Erythrocyte distribution wid th Auto (RBC) [Ratio]Ordered By: Brook Huddleston on 11-11-2022 Erythrocyte distribution width (RBC) [Ratio] 16.0 % 12.0-14.8 [facility] Giant platelets/100 leukocyt es [Ratio] in Blood by Manual countOrdered By: Brook Huddleston on 11-11-2022 Giant platelets/100 WBC Manual cnt (Bld) [Ratio] 1 /100{WBC} [facility] Giant platelets/100 WBC Manual cnt (Bld) [Ratio] Giant platelets/100 leukocytes [Ratio] in Blood by Manual count [facility] Globulin Calc (S) [Mass/Vol] Ordered By: Brook Huddleston on 11-11-2022 Globulin (S) [Mass/Vol] 2.5 g/dL [facility] Glucose [Mass/volume] in Ser um or PlasmaOrdered By: Brook Huddleston on 11-11-2022 Glucose [Mass/Vol] 190 mg/dL 70-100 [facility] Comment on above: ADA recommended refe rence rangeRandom Glucose Reference Range is dependent on time and content of last meal. Glucose of more than 200 mg/dL in a nonstressed, ambulatory subject supports the diagnosis of Diabetes Mellitus. Hematocrit Auto (Bld) [Volum e fraction]Ordered By: Brook Huddleston on 11-11-2022 Hematocrit (Bld) [Volume fraction] 26.7 % 38.8-50.0 [facility] Hemoglobin [Mass/volume] in BloodOrdered By: Brook Huddleston on 11-11-2022 Hemoglobin (Bld) [Mass/Vol] 9.1 g/dL 13.0-17.0 [facility] - Chemistry and C hemistry - challengeOrdered By: Brook Huddleston on 11-11-2022 GFR/1.73 sq M.predicted MDRD (S/P/Bld) [Vol rate/Area] 32.756 mL/min/{1.73_m2} [facility] Leukocytes [#/volume] correc lizbet for nucleated erythrocytes in Blood by Automated counOrdered By: Brook Huddleston on 11-11-2022 WBC corrected for nucl RBC Auto (Bld) [#/Vol] 6.0 10*3/uL 4.1-10.5 [facility] Lymphocytes Auto (Bld) [#/Vo l]Ordered By: Brook Huddleston on 11-11-2022 Lymphocytes (Bld) [#/Vol] N/A [facility] Lymphocytes/100 WBC Auto (Bl d)Ordered By: Brook Huddleston on 11-11-2022 Lymphocytes/100 WBC (Bld) N/A [facility] Lymphocytes/100 WBC Manual c nt (Bld)Ordered By: Brook Huddleston on 11-11-2022 Lymphocytes/100 WBC (Bld) 16 % Low 18-42 [facility] Lymphocytes/100 WBC (Bld) Lymphocytes/100 leukocytes in Blood by Manual count Low 18-42 [facility] MCH Auto (RBC) [Entitic mass ]Ordered By: Brook Huddleston on 11-11-2022 MCH (RBC) [Entitic mass] 38.8 pg 27.5-35.2 [facility] MCHC Auto (RBC) [Mass/Vol]Or dered By: Brook Huddleston on 11-11-2022 MCHC (RBC) [Mass/Vol] 34.0 g/dL 32.5-35.6 [facility] MCV Auto (RBC) [Entitic vol] Ordered By: Brook Huddleston on 11-11-2022 MCV (RBC) [Entitic vol] 114.2 fL 83.5-101 [facility] Macrocytes LM Ql (Bld)Ordere d By: Brook Huddleston on 11-11-2022 Macrocytes Ql (Bld) Slight [facility] Monocytes Auto (Bld) [#/Vol] Ordered By: Brook Huddleston on 11-11-2022 Monocytes (Bld) [#/Vol] N/A [facility] Monocytes/100 WBC Auto (Bld) Ordered By: Brook Huddleston on 11-11-2022 Monocytes/100 WBC (Bld) N/A [facility] Monocytes/100 WBC Manual cnt (Bld)Ordered By: Brook Huddleston on 11-11-2022 Monocytes/100 WBC (Bld) 13 % High 2-11 [facility] Monocytes/100 WBC (Bld) Monocytes/100 le ukocytes in Blood by Manual count High 2-11 [facility] Neutrophils Auto (Bld) [#/Vo l]Ordered By: Brook Huddleston on 11-11-2022 Neutrophils (Bld) [#/Vol] N/A [facility] Neutrophils/100 WBC Auto (Bl d)Ordered By: Brook Huddleston on 11-11-2022 Neutrophils/100 WBC (Bld) N/A [facility] No Panel InformationOrdered By: Brook Huddleston on 11-11-2022 Pharmacy Creatinine Clearance (Chem 34.37 [facility] Nucleated erythrocytes [Pres ence] in Blood by Automated countOrdered By: Brook Huddleston on 11-11-2022 Nucleated RBC Auto Ql (Bld) N/A [facility] Ovalocyte detectionOrdered B y: Brook Huddleston on 11-11-2022 Ovalocytes LM Ql (Bld) [facility] Platelet adequacy [Presence] in Blood by Light microscopyOrdered By: Brook Huddleston on 11-11-2022 Platelets LM Ql (Bld) Decreased Normal [facility] Platelet mean volume Auto (B ld) [Entitic vol]Ordered By: Brook Huddleston on 11-11-2022 Platelet mean volume (Bld) [Entitic vol] 8.7 fL 6.6-10.1 [facility] Platelet morphology finding [Identifier] in BloodOrdered By: Brook Huddleston on 11-11-2022 Platelet morphology finding Nom (Bld) Normal Normal [facility] Platelets Auto (Bld) [#/Vol] Ordered By: Brook Huddleston on 11-11-2022 Platelets (Bld) [#/Vol] 117 10*3/uL 150-450 [facility] Poikilocytosis [Presence] in Blood by Light microscopyOrdered By: Brook Huddleston on 11-11-2022 Poikilocytosis LM Ql (Bld) Slight [facility] Polychromasia [Presence] in Blood by Light microscopyOrdered By: Brook Huddleston on 11-11-2022 Polychromasia LM Ql (Bld) Moderate [facility] Potassium [Moles/volume] in Serum or PlasmaOrdered By: Brook Huddleston on 11-11-2022 Potassium [Moles/Vol] 4.9 mmol/L 3.5-5.1 [facility] Protein [Mass/volume] in Ser um or PlasmaOrdered By: Brook Huddleston on 11-11-2022 Protein [Mass/Vol] 6.7 g/dL 6.4-8.9 [facility] RBC Auto (Bld) [#/Vol]Ordere d By: Brook Huddleston on 11-11-2022 RBC (Bld) [#/Vol] 2.34 10*6/uL 3.90-5.60 [facility] RBC morphologyOrdered By: Black Huddleston on 11-11-2022 RBC morphology finding Nom (Bld) N/A [facility] Segmented neutrophils/100 WB C Manual cnt (Bld)Ordered By: Brook Hudldeston on 11-11-2022 Segmented neutrophils/100 WBC (Bld) 67 % 50-70 [facility] Segmented neutrophils/100 WBC (Bld) Manual blood segmented neutrophils/100 leukocytes 50-70 [facility] Serum or plasma albumin/glob ulin mass ratioOrdered By: Brook Huddleston on 11-11-2022 Albumin/Globulin [Mass ratio] 1.7 {ratio} [facility] Serum or plasma anion gap de terminationOrdered By: Brook Huddleston on 11-11-2022 Anion gap [Moles/Vol] 11.8 mmol/L 6.0-15.0 [facility] Sodium [Moles/volume] in Ser um or PlasmaOrdered By: Brook Huddleston on 11-11-2022 Sodium [Moles/Vol] 136 mmol/L 136-145 [facility] Urea nitrogen [Mass/volume] in Serum or PlasmaOrdered By: Brook Huddleston on 11-11-2022 Urea nitrogen [Mass/Vol] 29 mg/dL 7-25 [facility] Variant lymphocytes/100 WBC Manual cnt (Bld)Ordered By: Brook Huddleston on 11-11-2022 Variant lymphocytes/100 WBC (Bld) 1 % 0-12 [facility] Variant lymphocytes/100 WBC (Bld) Variant lymphocytes/100 leukocytes in Blood by Manual count 0-12 [facility] WBC Auto (Bld) [#/Vol]Ordere d By: Brook Huddleston on 11-11-2022 WBC (Bld) [#/Vol] 6.0 10*3/uL 4.1-10.5 [facility] Urine culture routineOrdered By: Helen Heath on 11-10-2022 Bacteria identified Cx Nom (U) 2 Days [facility] Alanine aminotransferase [En zymatic activity/volume] in Serum or PlasmaOrdered By: Brook Huddleston on 10-30-2022 ALT [Catalytic activity/Vol] 16 U/L 7-52 [facility] Albumin [Mass/volume] in Ser um or Plasma by Bromocresol green (BCG) dye binding methoOrdered By: Brook Huddleston on 10-30-2022 Albumin BCG dye [Mass/Vol] 4.0 g/dL 3.5-5.7 [facility] Alkaline phosphatase [Enzyma tic activity/volume] in Serum or PlasmaOrdered By: Brook Huddleston on 10-30-2022 ALP [Catalytic activity/Vol] 102 U/L 34-104 [facility] Anisocytosis LM Ql (Bld)Orde red By: Brook Huddleston on 10-30-2022 Anisocytosis Ql (Bld) Slight [facility] Aspartate aminotransferase [ Enzymatic activity/volume] in Serum or PlasmaOrdered By: Brook Huddleston on 10-30-2022 AST [Catalytic activity/Vol] 16 U/L 13-39 [facility] Basophils Auto (Bld) [#/Vol] Ordered By: Brook Huddleston on 10-30-2022 Basophils (Bld) [#/Vol] 0.0 10*3/uL 0.0-0.2 [facility] Basophils/100 WBC Auto (Bld) Ordered By: Brook Huddleston on 10-30-2022 Basophils/100 WBC (Bld) 0.3 % . [facility] Bilirubin.total [Mass/volume ] in Serum or PlasmaOrdered By: Brook Huddleston on 10-30-2022 Bilirubin [Mass/Vol] 0.4 mg/dL 0.3-1.0 [facility] Calcium [Mass/volume] in Ser um or PlasmaOrdered By: Brook Huddleston on 10-30-2022 Calcium [Mass/Vol] 8.9 mg/dL 8.6-10.3 [facility] Carbon dioxide, total [Moles /volume] in Serum or PlasmaOrdered By: Brook Huddleston on 10-30-2022 CO2 [Moles/Vol] 23.2 mmol/L 21.0-31.0 [facility] Chloride [Moles/volume] in S valeria or PlasmaOrdered By: Brook Huddleston on 10-30-2022 Chloride [Moles/Vol] 107 mmol/L 98-107 [facility] Cholesterol [Mass/volume] in Serum or PlasmaOrdered By: Helen Heath on 10-30-2022 Cholesterol [Mass/Vol] 138 mg/dL 140-200 [facility] Comment on above: Chol less than 200 m g/dl low riskChol 201-239 mg/dl borderline riskChol 240 mg/dl and greater high risk Cholesterol in LDL Calc [Mas s/Vol]Ordered By: Helen Heath on 10-30-2022 Cholesterol in LDL [Mass/Vol] 66 mg/dL 0-100 [facility] Comment on above: LDL ATP III CLASSIFI CATIONLDL less than 100 mg/dL OptimalLDL 100-129 mg/dL Near or above optimalLDL 130-159 mg/dL Borderline highLDL 160-189 mg/dL HighLDL greater than 189 mg/dL Very high Cholesterol in VLDL Calc [Ma ss/Vol]Ordered By: Helen Heath on 10-30-2022 Cholesterol in VLDL [Mass/Vol] 25 mg/dL [facility] Creatinine [Mass/volume] in Serum or PlasmaOrdered By: Brook Huddleston on 10-30-2022 Creatinine [Mass/Vol] 1.80 mg/dL 0.70-1.30 [facility] Eosinophils Auto (Bld) [#/Vo l]Ordered By: Brook Huddleston on 10-30-2022 Eosinophils (Bld) [#/Vol] 0.3 10*3/uL 0.0-0.45 [facility] Eosinophils/100 WBC Auto (Bl d)Ordered By: Brook Huddleston on 10-30-2022 Eosinophils/100 WBC (Bld) 4.6 % . [facility] Erythrocyte distribution wid th Auto (RBC) [Ratio]Ordered By: Brook Huddleston on 10-30-2022 Erythrocyte distribution width (RBC) [Ratio] 16.3 % 12.0-14.8 [facility] Globulin Calc (S) [Mass/Vol] Ordered By: Brook Huddleston on 10-30-2022 Globulin (S) [Mass/Vol] 2.4 g/dL [facility] Glucose [Mass/volume] in Ser um or PlasmaOrdered By: Brook Huddleston on 10-30-2022 Glucose [Mass/Vol] 145 mg/dL 74-109 [facility] Comment on above: ADA recommended refe [...] from glycated hemoglobin (Bld) [Mass/Vol] 166 mg/dL [facility] Hematocrit Auto (Bld) [Volum e fraction]Ordered By: Brook Huddleston on 10-30-2022 Hematocrit (Bld) [Volume fraction] 26.9 % 38.8-50.0 [facility] Hemoglobin A1c percentageOrd ered By: Helen Heath on 10-30-2022 HbA1c (Bld) [Mass fraction] 7.4 % 4.3-5.6 [facility] Comment on above: Increased risk for d iabetes: 5.7 - 6.4diabetes: >6.4glycemic control for adults with diabetes: <7.0 Hemoglobin [Mass/volume] in BloodOrdered By: Brook Huddleston on 10-30-2022 Hemoglobin (Bld) [Mass/Vol] 9.3 g/dL 13.0-17.0 [facility] - Chemistry and C hemistry - challengeOrdered By: Brook Huddleston on 10-30-2022 GFR/1.73 sq M.predicted MDRD (S/P/Bld) [Vol rate/Area] 38.289 mL/min/{1.73_m2} [facility] Leukocytes [#/volume] correc lizbet for nucleated erythrocytes in Blood by Automated counOrdered By: Brook Huddleston on 10-30-2022 WBC corrected for nucl RBC Auto (Bld) [#/Vol] 6.1 10*3/uL 4.1-10.5 [facility] Lymphocytes Auto (Bld) [#/Vo l]Ordered By: Brook Huddleston on 10-30-2022 Lymphocytes (Bld) [#/Vol] 1.1 10*3/uL 1.00-4.8 [facility] Lymphocytes/100 WBC Auto (Bl d)Ordered By: Brook Huddleston on 10-30-2022 Lymphocytes/100 WBC (Bld) 18.4 % . [facility] MCH Auto (RBC) [Entitic mass ]Ordered By: Brook Huddleston on 10-30-2022 MCH (RBC) [Entitic mass] 39.8 pg 27.5-35.2 [facility] MCHC Auto (RBC) [Mass/Vol]Or dered By: Brook Huddleston on 10-30-2022 MCHC (RBC) [Mass/Vol] 34.6 g/dL 32.5-35.6 [facility] MCV Auto (RBC) [Entitic vol] Ordered By: Brook Huddleston on 10-30-2022 MCV (RBC) [Entitic vol] 115.1 fL 83.5-101 [facility] Macrocytes LM Ql (Bld)Ordere d By: Brook Huddleston on 10-30-2022 Macrocytes Ql (Bld) Slight [facility] Monocytes Auto (Bld) [#/Vol] Ordered By: Brook Huddleston on 10-30-2022 Monocytes (Bld) [#/Vol] 0.5 10*3/uL 0.0-0.8 [facility] Monocytes/100 WBC Auto (Bld) Ordered By: Brook Huddleston on 10-30-2022 Monocytes/100 WBC (Bld) 8.4 % . [facility] Neutrophils Auto (Bld) [#/Vo l]Ordered By: Brook Huddleston on 10-30-2022 Neutrophils (Bld) [#/Vol] 4.2 10*3/uL 1.8-7.7 [facility] Neutrophils/100 WBC Auto (Bl d)Ordered By: Brook Huddleston on 10-30-2022 Neutrophils/100 WBC (Bld) 68.3 % . [facility] No Panel InformationOrdered By: Brook Huddleston on 10-30-2022 Pharmacy Creatinine Clearance (Chem 39.14 [facility] Nucleated erythrocytes [Pres ence] in Blood by Automated countOrdered By: Brook Huddleston on 10-30-2022 Nucleated RBC Auto Ql (Bld) 0.1 /100{WBC} 0-0.5 [facility] Ovalocyte detectionOrdered B y: Brook Huddleston on 10-30-2022 Ovalocytes LM Ql (Bld) Slight Fi [facility] Platelet adequacy [Presence] in Blood by Light microscopyOrdered By: Brook Huddleston on 10-30-2022 Platelets LM Ql (Bld) Decreased Normal [facility] Platelet mean volume Auto (B ld) [Entitic vol]Ordered By: Brook Huddleston on 10-30-2022 Platelet mean volume (Bld) [Entitic vol] 9.5 fL 6.6-10.1 [facility] Platelet morphology finding [Identifier] in BloodOrdered By: Brook Huddleston on 10-30-2022 Platelet morphology finding Nom (Bld) Normal Normal [facility] Platelets Auto (Bld) [#/Vol] Ordered By: Brook Huddleston on 10-30-2022 Platelets (Bld) [#/Vol] 125 10*3/uL 150-450 [facility] Polychromasia [Presence] in Blood by Light microscopyOrdered By: Brook Huddleston on 10-30-2022 Polychromasia LM Ql (Bld) Slight [facility] Potassium [Moles/volume] in Serum or PlasmaOrdered By: Brook Huddleston on 10-30-2022 Potassium [Moles/Vol] 4.6 mmol/L 3.5-5.1 [facility] Protein [Mass/volume] in Ser um or PlasmaOrdered By: Brook Huddleston on 10-30-2022 Protein [Mass/Vol] 6.4 g/dL 6.4-8.9 [facility] RBC Auto (Bld) [#/Vol]Ordere d By: Brook Huddleston on 10-30-2022 RBC (Bld) [#/Vol] 2.34 10*6/uL 3.90-5.60 [facility] RBC morphologyOrdered By: Black Huddleston on 10-30-2022 RBC morphology finding Nom (Bld) N/A [facility] Schistocytes [Presence] in B lood by Light microscopyOrdered By: Brook Huddleston on 10-30-2022 Schistocytes LM Ql (Bld) [facility] Serum or plasma albumin/glob ulin mass ratioOrdered By: Brook Huddleston on 10-30-2022 Albumin/Globulin [Mass ratio] 1.7 {ratio} [facility] Serum or plasma anion gap de terminationOrdered By: Brook Huddleston on 10-30-2022 Anion gap [Moles/Vol] 11.4 mmol/L 6.0-15.0 [facility] Serum or plasma high density lipoprotein (HDL) cholesterol measurementOrdered By: Helen Heath on 10-30-2022 Cholesterol in HDL [Mass/Vol] 47 mg/dL 29-71 [facility] Comment on above: HDL CHOL ATP-III CLA SSIFICATION Cardiovascular RiskHDL > or equal to 60 mg/dL LOWHDL < 40 mg/dL HIGH Serum or plasma methylmalona te measurement (moles/volume)Ordered By: Brook Huddleston on 10-30-2022 Methylmalonate [Moles/Vol] 190 nmol/L 0-378 [facility] Comment on above: This test was develo ped and its performance characteristicsdetermined by [facility]. It has not been cleared orapproved by the Food and Drug Administration.Performed at: [address] [id number] Director: Aliya Curtis MD, Phone: [phone] Serum or plasma total choles terol/high density lipoprotein (HDL) cholesterol mass ratOrdered By: Helen Heath on 10-30-2022 Cholesterol.total/Remedios sterol in HDL [Mass ratio] 2.9 {ratio} <5.0 [facility] Sodium [Moles/volume] in Ser um or PlasmaOrdered By: Brook Huddleston on 10-30-2022 Sodium [Moles/Vol] 137 mmol/L 136-145 [facility] Teardrop cell detectionOrder ed By: Brook Huddleston on 10-30-2022 Dacrocytes LM Ql (Bld) Slight [facility] Triglyceride [Mass/volume] i n Serum or PlasmaOrdered By: Helen Heath on 10-30-2022 Triglyceride [Mass/Vol] 126 mg/dL 0-149 [facility] Comment on above: TRIG ATP III CLASSIF ICATIONTRIG less than 150 mg/dL NormalTRIG 150-199 mg/dL Borderline highTRIG 200-500 mg/dL High TRIG greater than 500 mg/dL Very highStandard traceable to the Center for Disease Conrtrol and Prevention (CDC) test method. Urea nitrogen [Mass/volume] in Serum or PlasmaOrdered By: Brook Huddleston on 10-30-2022 Urea nitrogen [Mass/Vol] 22 mg/dL 7-25 [facility] Vitamin B12 ser/plasOrdered By: Brook Huddleston on 10-30-2022 Cobalamin (Vitamin B12) [Mass/Vol] 341 pg/mL 180-914 [facility] Cobalamin (Vitamin B12) [Mass/Vol] Vitamin B12 ser/plas 180-914 [facility] WBC Auto (Bld) [#/Vol]Ordere d By: Brook Huddleston on 10-30-2022 WBC (Bld) [#/Vol] 6.1 10*3/uL 4.1-10.5 [facility] Albumin [Mass/volume] in Ser um or PlasmaOrdered By: Brook Huddleston on 10-14-2022 Albumin [Mass/Vol] 3.7 g/dL 3.2-5.5 [facility] Alkaline phosphatase [Enzyma tic activity/volume] in Serum or PlasmaOrdered By: Brook Huddleston on 10-14-2022 ALP [Catalytic activity/Vol] 102 U/L 32-92 [facility] Anisocytosis LM Ql (Bld)Orde red By: Brook Huddleston on 10-14-2022 Anisocytosis Ql (Bld) Slight [facility] Aspartate aminotransferase [ Enzymatic activity/volume] in Serum or PlasmaOrdered By: Brook Huddleston on 10-14-2022 AST [Catalytic activity/Vol] 22 U/L 10-42 [facility] Basophils Auto (Bld) [#/Vol] Ordered By: Brook Huddleston on 10-14-2022 Basophils (Bld) [#/Vol] 0.0 10*3/uL 0.0-0.2 [facility] Basophils/100 WBC Auto (Bld) Ordered By: Brook Huddleston on 10-14-2022 Basophils/100 WBC (Bld) 0.4 % . [facility] Bilirubin.total [Mass/volume ] in Serum or PlasmaOrdered By: Brook Huddleston on 10-14-2022 Bilirubin [Mass/Vol] 0.4 mg/dL 0.3-1.2 [facility] Calcium [Mass/volume] in Ser um or PlasmaOrdered By: Brook Huddleston on 10-14-2022 Calcium [Mass/Vol] 9.1 mg/dL 8.2-10.2 [facility] Carbon dioxide, total [Moles /volume] in Serum or PlasmaOrdered By: Brook Huddleston on 10-14-2022 CO2 [Moles/Vol] 23.4 mmol/L 22.0-30.0 [facility] Chloride [Moles/volume] in S valeria or PlasmaOrdered By: Brook Huddleston on 10-14-2022 Chloride [Moles/Vol] 105 mmol/L 95-114 [facility] Creatinine and Glomerular fi ltration rate.predicted panel (S/P/Bld)Ordered By: Brook Huddleston on 10-14-2022 Creatinine [Mass/Vol] 1.54 mg/dL 0.64-1.27 [facility] Eosinophils Auto (Bld) [#/Vo l]Ordered By: Brook Huddleston on 10-14-2022 Eosinophils (Bld) [#/Vol] 0.2 10*3/uL 0.0-0.45 [facility] Eosinophils/100 WBC Auto (Bl d)Ordered By: Brook Huddleston on 10-14-2022 Eosinophils/100 WBC (Bld) 3.2 % . [facility] Erythrocyte distribution wid th Auto (RBC) [Ratio]Ordered By: Brook Huddleston on 10-14-2022 Erythrocyte distribution width (RBC) [Ratio] 17.1 % 12.0-14.8 [facility] Estimated glomerular filtrat ion rate (GFR) non- AmericanOrdered By: Brook Huddleston on 10-14-2022 GFR/1.73 sq M.predicted among non-blacks MDRD (S/P/Bld) [Vol rate/Area] 44 mL/Min [facility] GFR/1.73 sq M.predicted among non-blacks MDRD (S/P/Bld) [Vol rate/Area] Estimated glomerular filtration rate (GFR) non- [facility] Globulin Calc (S) [Mass/Vol] Ordered By: Brook Huddleston on 10-14-2022 Globulin (S) [Mass/Vol] 2.5 g/dL [facility] Glucose [Mass/volume] in Ser um or PlasmaOrdered By: Brook Huddleston on 10-14-2022 Glucose [Mass/Vol] 138 mg/dL 70-100 [facility] Comment on above: ADA recommended refe rence rangeRandom Glucose Reference Range is dependent on time and content of last meal. Glucose of more than 200 mg/dL in a nonstressed, ambulatory subject supports the diagnosis of Diabetes Mellitus. Hematocrit Auto (Bld) [Volum e fraction]Ordered By: Brook Huddleston on 10-14-2022 Hematocrit (Bld) [Volume fraction] 26.7 % 38.8-50.0 [facility] Hemoglobin [Mass/volume] in BloodOrdered By: Brook Huddleston on 10-14-2022 Hemoglobin (Bld) [Mass/Vol] 9.0 g/dL 13.0-17.0 [facility] Leukocytes [#/volume] correc lizbet for nucleated erythrocytes in Blood by Automated counOrdered By: Brook Huddleston on 10-14-2022 WBC corrected for nucl RBC Auto (Bld) [#/Vol] 7.1 10*3/uL 4.1-10.5 [facility] Lymphocytes Auto (Bld) [#/Vo l]Ordered By: Brook Huddleston on 10-14-2022 Lymphocytes (Bld) [#/Vol] 1.0 10*3/uL 1.00-4.8 [facility] Lymphocytes/100 WBC Auto (Bl d)Ordered By: Brook Huddleston on 10-14-2022 Lymphocytes/100 WBC (Bld) 14.3 % . [facility] MCH Auto (RBC) [Entitic mass ]Ordered By: Brook Huddleston on 10-14-2022 MCH (RBC) [Entitic mass] 38.7 pg 27.5-35.2 [facility] MCHC Auto (RBC) [Mass/Vol]Or dered By: Brook Huddleston on 10-14-2022 MCHC (RBC) [Mass/Vol] 33.7 g/dL 32.5-35.6 [facility] MCV Auto (RBC) [Entitic vol] Ordered By: Brook Huddleston on 10-14-2022 MCV (RBC) [Entitic vol] 114.9 fL 83.5-101 [facility] Monocytes Auto (Bld) [#/Vol] Ordered By: Brook Huddleston on 10-14-2022 Monocytes (Bld) [#/Vol] 0.5 10*3/uL 0.0-0.8 [facility] Monocytes/100 WBC Auto (Bld) Ordered By: Brook Huddleston on 10-14-2022 Monocytes/100 WBC (Bld) 6.9 % . [facility] Neutrophils Auto (Bld) [#/Vo l]Ordered By: Brook Huddleston on 10-14-2022 Neutrophils (Bld) [#/Vol] 5.3 10*3/uL 1.8-7.7 [facility] Neutrophils/100 WBC Auto (Bl d)Ordered By: Brook Huddleston on 10-14-2022 Neutrophils/100 WBC (Bld) 75.2 % . [facility] No Panel InformationOrdered By: Brook Huddleston on 10-14-2022 Estimated GFR () 53 mL/Min [facility] Comment on above: GFR estimated refere nce range: According to KDOQI guidelines, <60 ml/min/1.73m2 is sufficient to diagnose a patient with chronic kidney disease. Pharmacy Creatinine Clearance (Chem 45.75 [facility] 53 mL/Min [facility] Nucleated erythrocytes [Pres ence] in Blood by Automated countOrdered By: Brook Huddleston on 10-14-2022 Nucleated RBC Auto Ql (Bld) 0.2 /100{WBC} 0-0.5 [facility] Ovalocyte detectionOrdered B y: Brook Huddleston on 10-14-2022 Ovalocytes LM Ql (Bld) [facility] Platelet adequacy [Presence] in Blood by Light microscopyOrdered By: Brook Huddleston on 10-14-2022 Platelets LM Ql (Bld) Decreased Normal [facility] Platelet mean volume Auto (B ld) [Entitic vol]Ordered By: Brook Huddleston on 10-14-2022 Platelet mean volume (Bld) [Entitic vol] 9.5 fL 6.6-10.1 [facility] Platelet morphology finding [Identifier] in BloodOrdered By: Brook Huddleston on 10-14-2022 Platelet morphology finding Nom (Bld) Normal Normal [facility] Platelets Auto (Bld) [#/Vol] Ordered By: Brook Huddleston on 10-14-2022 Platelets (Bld) [#/Vol] 128 10*3/uL 150-450 [facility] Poikilocytosis [Presence] in Blood by Light microscopyOrdered By: Brook Huddleston on 10-14-2022 Poikilocytosis LM Ql (Bld) Slight [facility] Polychromasia [Presence] in Blood by Light microscopyOrdered By: Brook Huddleston on 10-14-2022 Polychromasia LM Ql (Bld) Slight [facility] Potassium [Moles/volume] in Serum or PlasmaOrdered By: Brook Huddleston on 10-14-2022 Potassium [Moles/Vol] 4.7 mmol/L 3.5-5.1 [facility] Protein [Mass/volume] in Ser um or PlasmaOrdered By: Brook Huddleston on 10-14-2022 Protein [Mass/Vol] 6.2 g/dL 6.1-7.9 [facility] RBC Auto (Bld) [#/Vol]Ordere d By: Brook Huddleston on 10-14-2022 RBC (Bld) [#/Vol] 2.32 10*6/uL 3.90-5.60 [facility] RBC morphologyOrdered By: Am safia Huddleston on 10-14-2022 RBC morphology finding Nom (Bld) N/A [facility] Schistocytes [Presence] in B lood by Light microscopyOrdered By: Brook Huddleston on 10-14-2022 Schistocytes LM Ql (Bld) Slight [facility] Serum or plasma alanine etienne otransferase measurement without P-5'-P (enzymatic activiOrdered By: Brook Huddleston on 10-14-2022 ALT No additional P-5'-P [Catalytic activity/Vol] 20 U/L 10-60 [facility] Serum or plasma albumin/glob ulin mass ratioOrdered By: Brook Huddleston on 10-14-2022 Albumin/Globulin [Mass ratio] 1.5 {ratio} [facility] Serum or plasma anion gap de terminationOrdered By: Brook Huddleston on 10-14-2022 Anion gap [Moles/Vol] 11.3 mmol/L 6.0-15.0 [facility] Sodium [Moles/volume] in Ser um or PlasmaOrdered By: Brook Huddleston on 10-14-2022 Sodium [Moles/Vol] 135 mmol/L 136-146 [facility] Teardrop cell detectionOrder ed By: rBook Huddleston on 10-14-2022 Dacrocytes LM Ql (Bld) S[facility] Urea nitrogen [Mass/volume] in Serum or PlasmaOrdered By: Brook Huddleston on 10-14-2022 Urea nitrogen [Mass/Vol] 25 mg/dL 9-23 [facility] WBC Auto (Bld) [#/Vol]Ordere d By: Brook Huddleston on 10-14-2022 WBC (Bld) [#/Vol] 7.1 10*3/uL 4.1-10.5 [facility] Albumin [Mass/volume] in Ser um or PlasmaOrdered By: Brook Huddleston on 10-01-2022 Albumin [Mass/Vol] 3.6 g/dL 3.2-5.5 [facility] Anisocytosis LM Ql (Bld)Orde red By: Brook Huddleston on 10-01-2022 Anisocytosis Ql (Bld) Slight [facility] Basophils Auto (Bld) [#/Vol] Ordered By: Brook Huddleston on 10-01-2022 Basophils (Bld) [#/Vol] 0.0 10*3/uL 0.0-0.2 [facility] Basophils/100 WBC Auto (Bld) Ordered By: Brook Huddleston on 10-01-2022 Basophils/100 WBC (Bld) 0.1 % . [facility] Creatinine and Glomerular fi ltration rate.predicted panel (S/P/Bld)Ordered By: Brook Huddleston on 10-01-2022 Creatinine [Mass/Vol] 2.02 mg/dL 0.64-1.27 [facility] Eosinophils Auto (Bld) [#/Vo l]Ordered By: Brook Huddleston on 10-01-2022 Eosinophils (Bld) [#/Vol] 0.2 10*3/uL 0.0-0.45 [facility] Eosinophils/100 WBC Auto (Bl d)Ordered By: Brook Huddleston on 10-01-2022 Eosinophils/100 WBC (Bld) 2.9 % . [facility] Erythrocyte distribution wid th Auto (RBC) [Ratio]Ordered By: Brook Huddleston on 10-01-2022 Erythrocyte distribution width (RBC) [Ratio] 17.3 % 12.0-14.8 [facility] Estimated glomerular filtrat ion rate (GFR) non- AmericanOrdered By: Brook Huddleston on 10-01-2022 GFR/1.73 sq M.predicted among non-blacks MDRD (S/P/Bld) [Vol rate/Area] 32 mL/Min [facility] Globulin Calc (S) [Mass/Vol] Ordered By: Brook Huddleston on 10-01-2022 Globulin (S) [Mass/Vol] 2.4 g/dL [facility] Hematocrit Auto (Bld) [Volum e fraction]Ordered By: Brook Huddleston on 10-01-2022 Hematocrit (Bld) [Volume fraction] 25.9 % 38.8-50.0 [facility] Hemoglobin [Mass/volume] in BloodOrdered By: Brook Huddleston on 10-01-2022 Hemoglobin (Bld) [Mass/Vol] 8.6 g/dL 13.0-17.0 [facility] Leukocytes [#/volume] correc lizbet for nucleated erythrocytes in Blood by Automated counOrdered By: Brook Huddleston on 10-01-2022 WBC corrected for nucl RBC Auto (Bld) [#/Vol] 6.4 10*3/uL 4.1-10.5 [facility] Lymphocytes Auto (Bld) [#/Vo l]Ordered By: Brook Huddleston on 10-01-2022 Lymphocytes (Bld) [#/Vol] 1.0 10*3/uL 1.00-4.8 [facility] Lymphocytes/100 WBC Auto (Bl d)Ordered By: Brook Huddleston on 10-01-2022 Lymphocytes/100 WBC (Bld) 16.3 % . [facility] MCH Auto (RBC) [Entitic mass ]Ordered By: Brook Huddleston on 10-01-2022 MCH (RBC) [Entitic mass] 38.9 pg 27.5-35.2 [facility] MCHC Auto (RBC) [Mass/Vol]Or dered By: Brook Huddleston on 10-01-2022 MCHC (RBC) [Mass/Vol] 33.4 g/dL 32.5-35.6 [facility] MCV Auto (RBC) [Entitic vol] Ordered By: Brook Huddleston on 10-01-2022 MCV (RBC) [Entitic vol] 116.5 fL 83.5-101 [facility] Monocytes Auto (Bld) [#/Vol] Ordered By: Brook Huddleston on 10-01-2022 Monocytes (Bld) [#/Vol] 0.4 10*3/uL 0.0-0.8 [facility] Monocytes/100 WBC Auto (Bld) Ordered By: Brook Huddleston on 10-01-2022 Monocytes/100 WBC (Bld) 6.8 % . [facility] Neutrophils Auto (Bld) [#/Vo l]Ordered By: Brook Huddleston on 10-01-2022 Neutrophils (Bld) [#/Vol] 4.7 10*3/uL 1.8-7.7 [facility] Neutrophils/100 WBC Auto (Bl d)Ordered By: Brook Huddleston on 10-01-2022 Neutrophils/100 WBC (Bld) 73.9 % . [facility] No Panel InformationOrdered By: Brook Huddleston on 10-01-2022 Estimated GFR () 39 mL/Min [facility] Comment on above: GFR estimated refere nce range: According to KDOQI guidelines, <60 ml/min/1.73m2 is sufficient to diagnose a patient with chronic kidney disease. Pharmacy Creatinine Clearance (Chem 34.88 [facility] Nucleated erythrocytes [Pres ence] in Blood by Automated countOrdered By: Brook Huddleston on 10-01-2022 Nucleated RBC Auto Ql (Bld) 0.1 /100{WBC} 0-0.5 [facility] Platelet adequacy [Presence] in Blood by Light microscopyOrdered By: Brook Huddleston on 10-01-2022 Platelets LM Ql (Bld) Decreased Normal [facility] Platelet mean volume Auto (B ld) [Entitic vol]Ordered By: Brook Huddleston on 10-01-2022 Platelet mean volume (Bld) [Entitic vol] 9.1 fL 6.6-10.1 [facility] Platelet morphology finding [Identifier] in BloodOrdered By: Brook Huddleston on 10-01-2022 Platelet morphology finding Nom (Bld) N/A [facility] Platelets Auto (Bld) [#/Vol] Ordered By: Brook Huddleston on 10-01-2022 Platelets (Bld) [#/Vol] 120 10*3/uL 150-450 [facility] Platelets Large [Presence] i n Blood by Light microscopyOrdered By: Brook Huddleston on 10-01-2022 Platelets Large LM Ql (Bld) Slight [facility] Platelets Large LM Ql (Bld) Platelets Large [Presence] in Blood by Light microscopy [facility] Poikilocytosis [Presence] in Blood by Light microscopyOrdered By: Brook Huddleston on 10-01-2022 Poikilocytosis LM Ql (Bld) Slight [facility] Polychromasia [Presence] in Blood by Light microscopyOrdered By: Brook Huddleston on 10-01-2022 Polychromasia LM Ql (Bld) Moderate [facility] Protein [Mass/volume] in Ser um or PlasmaOrdered By: Brook Huddleston on 10-01-2022 Protein [Mass/Vol] 6.0 g/dL 6.1-7.9 [facility] RBC Auto (Bld) [#/Vol]Ordere d By: Brook Huddleston on 10-01-2022 RBC (Bld) [#/Vol] 2.22 10*6/uL 3.90-5.60 [facility] RBC morphologyOrdered By: Black Huddleston on 10-01-2022 RBC morphology finding Nom (Bld) N/A [facility] Schistocytes [Presence] in B lood by Light microscopyOrdered By: Broko Huddleston on 10-01-2022 Schistocytes LM Ql (Bld) Slight [facility] Serum or plasma alanine etienne otransferase measurement without P-5'-P (enzymatic activiOrdered By: Brook Huddleston on 10-01-2022 ALT No additional P-5'-P [Catalytic activity/Vol] 19 U/L 10-60 [facility] Serum or plasma albumin/glob ulin mass ratioOrdered By: Brook Huddleston on 10-01-2022 Albumin/Globulin [Mass ratio] 1.5 {ratio} [facility] Serum or plasma alkaline tammy sphatase measurement (enzymatic activity/volume)Ordered By: Brook Huddleston on 10-01-2022 ALP [Catalytic activity/Vol] 111 U/L 32-92 [facility] Serum or plasma anion gap de terminationOrdered By: Brook Huddleston on 10-01-2022 Anion gap [Moles/Vol] 10.6 mmol/L 6.0-15.0 [facility] Serum or plasma aspartate am inotransferase measurement (enzymatic activity/volume)Ordered By: Brook Huddleston on 10-01-2022 AST [Catalytic activity/Vol] 18 U/L 10-42 [facility] Serum or plasma calcium reese urement (mass/volume)Ordered By: Brook Huddleston on 10-01-2022 Calcium [Mass/Vol] 8.9 mg/dL 8.2-10.2 [facility] Serum or plasma chloride gurdeep surement (moles/volume)Ordered By: Brook Huddleston on 10-01-2022 Chloride [Moles/Vol] 106 mmol/L 95-114 [facility] Serum or plasma glucose reese urement (mass/volume)Ordered By: Brook Huddleston on 10-01-2022 Glucose [Mass/Vol] 251 mg/dL 70-100 [facility] Comment on above: ADA recommended refe rence rangeRandom Glucose Reference Range is dependent on time and content of last meal. Glucose of more than 200 mg/dL in a nonstressed, ambulatory subject supports the diagnosis of Diabetes Mellitus. Serum or plasma potassium me asurement (moles/volume)Ordered By: Brook Huddleston on 10-01-2022 Potassium [Moles/Vol] 4.7 mmol/L 3.5-5.1 [facility] Serum or plasma sodium measu rement (moles/volume)Ordered By: Brook Huddleston on 10-01-2022 Sodium [Moles/Vol] 135 mmol/L 136-146 [facility] Serum or plasma total biliru bin measurement (mass/volume)Ordered By: Brook Huddleston on 10-01-2022 Bilirubin [Mass/Vol] 0.2 mg/dL 0.3-1.2 [facility] Serum or plasma total carbon dioxide measurement (moles/volume)Ordered By: Brook Huddleston on 10-01-2022 CO2 [Moles/Vol] 23.1 mmol/L 22.0-30.0 [facility] Serum or plasma urea nitroge n measurement (mass/volume)Ordered By: Brook Huddleston on 10-01-2022 Urea nitrogen [Mass/Vol] 21 mg/dL 9-23 [facility] Teardrop cell detectionOrder ed By: Brook Huddleston on 10-01-2022 Dacrocytes LM Ql (Bld) Slight [facility] WBC Auto (Bld) [#/Vol]Ordere d By: Brook Huddleston on 10-01-2022 WBC (Bld) [#/Vol] 6.4 10*3/uL 4.1-10.5 [facility] Automated epithelial cells c ount in urine sediment (number/area)Ordered By: Price Crain on 09-23-2022 Epithelial cells Auto (Urine sed) [#/Area] 3-4 [HPF] 0-2 [facility] Automated erythrocytes count in urine sediment (number/area)Ordered By: Price Crain on 09-23-2022 RBC Auto (Urine sed) [#/Area] 5-9 [HPF] 0-4 [facility] Automated leukocytes count i n urine sediment (number/area)Ordered By: Price Crain on 09-23-2022 WBC Auto (Urine sed) [#/Area] Innumerable [HPF] 0-4 [facility] Bilirubin Auto test strip Ql (U)Ordered By: Price Crain on 09-23-2022 Bilirubin Ql (U) Negative Negative [facility] Body fluid albumin measureme nt (mass/volume)Ordered By: Price Crain on 09-23-2022 Albumin (Body fld) [Mass/Vol] 3.5 g/dL 3.2-5.5 [facility] Creatinine [Mass/volume] in UrineOrdered By: Price Crain on 09-23-2022 Creatinine (U) [Mass/Vol] 52.1 mg/dL [facility] Comment on above: No reference range e stablished Creatinine and Glomerular fi ltration rate.predicted panel (S/P/Bld)Ordered By: Price Crain on 09-23-2022 Creatinine [Mass/Vol] 1.90 mg/dL 0.64-1.27 [facility] Estimated glomerular filtrat ion rate (GFR) non- AmericanOrdered By: Price Crain on 09-23-2022 GFR/1.73 sq M.predicted among non-blacks MDRD (S/P/Bld) [Vol rate/Area] 35 mL/Min [facility] Globulin Calc (S) [Mass/Vol] Ordered By: Price Crain on 09-23-2022 Globulin (S) [Mass/Vol] 2.7 g/dL [facility] Ketones Auto test strip (U) [Mass/Vol]Ordered By: Price Crain on 09-23-2022 Ketones (U) [Mass/Vol] Negative Negative [facility] Laboratory - Chemistry and C hemistry - challengeOrdered By: Price Crain on 09-23-2022 Magnesium [Mass/Vol] 2.0 mg/dL 1.6-2.6 [facility] No Panel InformationOrdered By: Price Crain on 09-23-2022 25-Hydroxy Vitamin D Total 43.4 ng/mL 30-100 [facility] Comment on above: VITAMIN D STATUS 25( [place])VITAMIN D RANGE (ng/mL) Deficient <20 Insufficient 20 to <30Sufficient 30 to 100Reference: Dieudonne MF,Brendon NC, Estrella CARTER, et al. Evaluation,treatment, and prevention of vitamin D deficiency; an Endocrine Society clinical practice guideline. JCEM. 2010; 96(7):1911-30. Estimated GFR () 42 mL/Min [facility] Comment on above: GFR estimated refere nce range: According to KDOQI guidelines, <60 ml/min/1.73m2 is sufficient to diagnose a patient with chronic kidney disease. Pharmacy Creatinine Clearance (Chem N/A [facility] Protein Auto test strip (U) [Mass/Vol]Ordered By: Price Crain on 09-23-2022 Protein (U) [Mass/Vol] 30 mg/dL Negative [facility] Protein [Mass/volume] in Ser um or PlasmaOrdered By: Price Crain on 09-23-2022 Protein [Mass/Vol] 6.2 g/dL 6.1-7.9 [facility] Protein [Mass/volume] in Uri neOrdered By: Price Crain on 09-23-2022 Protein (U) [Mass/Vol] 67 mg/dL 0-9 [facility] Serum or plasma alanine etienne otransferase measurement without P-5'-P (enzymatic activiOrdered By: Price Crain on 09-23-2022 ALT No additional P-5'-P [Catalytic activity/Vol] 19 U/L 10-60 [facility] Serum or plasma albumin/glob ulin mass ratioOrdered By: Price Crain on 09-23-2022 Albumin/Globulin [Mass ratio] 1.3 {ratio} [facility] Serum or plasma alkaline tammy sphatase measurement (enzymatic activity/volume)Ordered By: Price Crain on 09-23-2022 ALP [Catalytic activity/Vol] 105 U/L 32-92 [facility] Serum or plasma anion gap de terminationOrdered By: Price Crain on 09-23-2022 Anion gap [Moles/Vol] 12.4 mmol/L 6.0-15.0 [facility] Serum or plasma aspartate am inotransferase measurement (enzymatic activity/volume)Ordered By: Price Crain on 09-23-2022 AST [Catalytic activity/Vol] 19 U/L 10-42 [facility] Serum or plasma calcium reese urement (mass/volume)Ordered By: Price Crain on 09-23-2022 Calcium [Mass/Vol] 9.3 mg/dL 8.2-10.2 [facility] Serum or plasma chloride gurdeep surement (moles/volume)Ordered By: Price Crain on 09-23-2022 Chloride [Moles/Vol] 103 mmol/L 95-114 [facility] Serum or plasma glucose reese urement (mass/volume)Ordered By: Price Crain on 09-23-2022 Glucose [Mass/Vol] 245 mg/dL 70-100 [facility] Comment on above: ADA recommended refe rence rangeRandom Glucose Reference Range is dependent on time and content of last meal. Glucose of more than 200 mg/dL in a nonstressed, ambulatory subject supports the diagnosis of Diabetes Mellitus. Serum or plasma intact parat hyroid hormone measurement (mass/volume)Ordered By: Price Crain on 09-23-2022 Parathyrin.intact [Mass/Vol] 69.0 pg/mL 12 [facility] Serum or plasma potassium me asurement (moles/volume)Ordered By: Price Crain on 09-23-2022 Potassium [Moles/Vol] 4.8 mmol/L 3.5-5.1 [facility] Serum or plasma sodium measu rement (moles/volume)Ordered By: Price Crain on 09-23-2022 Sodium [Moles/Vol] 133 mmol/L 136-146 [facility] Serum or plasma total biliru bin measurement (mass/volume)Ordered By: Price Crain on 09-23-2022 Bilirubin [Mass/Vol] 0.4 mg/dL 0.3-1.2 [facility] Serum or plasma total carbon dioxide measurement (moles/volume)Ordered By: Price Crain on 09-23-2022 CO2 [Moles/Vol] 22.4 mmol/L 22.0-30.0 [facility] Serum or plasma urea nitroge n measurement (mass/volume)Ordered By: Price Crain on 09-23-2022 Urea nitrogen [Mass/Vol] 23 mg/dL 9-23 [facility] Serum or plasma uric acid me asurement (mass/volume)Ordered By: Price Crain on 09-23-2022 Urate [Mass/Vol] 4.5 mg/dL 2.6-7.2 [facility] Urine appearanceOrdered By: Price Crain on 09-23-2022 Appearance (U) Cloudy Clear [facility] Urine bacteria detection by automated methodOrdered By: Price Crain on 09-23-2022 Bacteria Auto Ql (U) 1+ None Seen [facility] Urine colorOrdered By: Price Crain on 09-23-2022 Color (U) Yellow Yellow [facility] Urine culture routineOrdered By: Price Crain on 09-23-2022 Bacteria identified Cx Nom (U) No Growth 2 Days [facility] Bacteria identified Cx Nom (U) No Growth 2 Days [facility] Urine glucose measurement by automated test strip (mass/volume)Ordered By: Price Crain on 09-23-2022 Glucose Auto test strip (U) [Mass/Vol] 500 mg/dL Normal [facility] Urine hemoglobin detection b y automated test stripOrdered By: Price Crain on 09-23-2022 Hemoglobin Auto test strip Ql (U) 3+ Negative [facility] Urine leukocyte esterase det ection by automated test stripOrdered By: Price Crain on 09-23-2022 Leukocyte esterase Auto test strip Ql (U) 4+ Negative [facility] Urine nitrite detection by a utomated test stripOrdered By: Price Crain on 09-23-2022 Nitrite Auto test strip Ql (U) Negative Negative [facility] Urine protein/creatinine rat ioOrdered By: Price Crain on 09-23-2022 Protein/Creatinine (U) [Ratio] 1286 mg/g{Cre} 0-200 [facility] Urobilinogen Auto test strip (U) [Mass/Vol]Ordered By: Price Crain on 09-23-2022 Urobilinogen (U) [Mass/Vol] Normal mg/dL Normal [facility] pH Auto test strip (U)Ordere d By: Price Crain on 09-23-2022 pH (U) 1.015 [pH] 1.001-1.03 0 [facility] pH (U) 6.5 [pH] 5.0-9.[address] [facility] [address] biopsyOrdered By: Brook Gomez se on 09-03-2022 Transferrin [Mass/Vol] 173 mg/dL 180-380 [facility] Ferritin [Mass/volume] in Se rum or PlasmaOrdered By: Brook Huddleston on 09-03-2022 Ferritin [Mass/Vol] 574.6 ng/mL 23.9-336.2 [facility] Iron [Mass/volume] in Serum or PlasmaOrdered By: Brook Huddleston on 09-03-2022 Iron [Mass/Vol] 90 ug/dL 40-160 [facility] Iron binding capacity [Mass/ volume] in Serum or PlasmaOrdered By: Brook Huddleston on 09-03-2022 Iron binding capacity [Mass/Vol] 242 ug/dL 255-450 [facility] Iron saturation [Mass Fracti on] in Serum or PlasmaOrdered By: Brook Huddleston on 09-03-2022 Iron saturation [Mass fraction] 37.2 % 20-50 [facility] Serum or plasma erythropoiet in (EPO) measurement (units/volume)Ordered By: Brook Huddleston on 09-03-2022 Erythropoietin (EPO) Qn 409.2 mIU/mL High 2.6-18.5 [facility] Comment on above: Twelve el DxI 800 Immunoassay SystemValues obtained with different assay methods or kits cannotbe used interchangeably. Results cannot be interpreted asabsolute evidence of the presence or absence of malignantdisease.Performed at: [facility] [address] [id number] Director: Melchor Agrawal PhD, Phone: [phone] Erythropoietin (EPO) Qn Serum or plasma erythropoietin (EPO) measurement (units/volume) High 2.6-18.5 [facility] Comment on above: Twelve el DxI 800 Immunoassay SystemValues obtained with different assay methods or kits cannotbe used interchangeably. Results cannot be interpreted asabsolute evidence of the presence or absence of malignantdisease.Performed at: [facility] [address] [id number] Director: Melchor Agrawal PhD, Phone: [phone] Serum or plasma homocysteine measurement (moles/volume)Ordered By: Brook Huddleston on 09-03-2022 Homocysteine [Moles/Vol] 16.0 umol/L 0.0-19.2 [facility] Comment on above: Performed at: [facility] [address] [id number] Director: Melchor Agrawal PhD, Phone: [phone] Serum or plasma methylmalona te measurement (moles/volume)Ordered By: Brook Huddleston on 09-03-2022 Methylmalonate [Moles/Vol] 231 nmol/L 0-378 [facility] Comment on above: This test was develo ped and its performance characteristicsdetermined by awe[employer]. It has not been cleared orapproved by the Food and Drug Administration.Performed at: [facility] [id number] [place], [place] [id number] Director: Aliya Curtis MD, Phone: [phone] POINT OF CARE GLUCOSEon 08-17 Glucose [Mass/Vol] 250 mg/dL Critically high 74-106 [facility] Comment on above: Performed By: #### P OCGLUC #### [facility] [address] [place] [address] Dr. Lydia Merritt POINT OF CARE GLUCOSEon 08-17 Glucose [Mass/Vol] 283 mg/dL Critically high 74-106 [facility] Comment on above: Performed By: #### P TT, PT #### [facility] [address] [place] [address] Dr. Lydia Merritt Glucose [Mass/Vol] 207 mg/dL Critically high 74-106 [facility] Comment on above: Performed By: #### P TT, PT #### [facility] [address] [place] [address] Dr. Lydia Merritt PROF CHEM 8 (BAS METB)on Anion gap [Moles/Vol] 15.8 mmol/L Normal [facility] Comment on above: Performed By: #### P TT, PT #### [facility] [address] [place] [address] Dr. Lydia Merritt Calcium [Mass/Vol] 8.7 mg/dL Normal 8.5-10.1 [facility] Comment on above: Performed By: #### P TT, PT #### [facility] [address] [place] [address] Dr. Lydia Merritt Chloride [Moles/Vol] 107 mmol/L Normal 98-107 [facility] Comment on above: Performed By: #### P TT, PT #### [facility] [address] [place] [address] Dr. Lydia Merritt CO2 [Moles/Vol] 22.4 mmol/L Normal 21.0-32.0 [facility] Comment on above: Performed By: #### P TT, PT #### [facility] [address] [address] [address] Lydia Merritt Creatinine [Mass/Vol] 1.82 mg/dL Critically high 0.70-1.30 [facility] Comment on above: Performed By: #### P TT, PT #### [facility] [address] [address] [address] Lydia Merritt EGFR-AF MONGOLIAN 44 mL/min/1.73m2 Critically low >=60 [facility] Comment on above: Performed By: #### P TT, PT #### [facility] [address] [address] [address] Lydia Merritt EGFR-NON AF MONGOLIAN 36 mL/min/1.73m2 Critically low >=60 [facility] Comment on above: Performed By: #### P TT, PT #### [facility] [address] [place] [address] Dr. Lydia Merritt Glucose [Mass/Vol] 128 mg/dL Critically high 74-106 T [facility] Comment on above: Performed By: #### P TT, PT #### [facility] [address] [address] [address] Lydia Merritt Potassium [Moles/Vol] 5.2 mmol/L Critically high 3.5-5.1 [facility] Comment on above: Performed By: #### P TT, PT #### [facility] [address] [address] [address] Lydia Merritt Sodium [Moles/Vol] 140 mmol/L Normal 136-145 [facility] Comment on above: Performed By: #### P TT, PT #### [facility] [address] [address] [address] Lydia Merritt Urea nitrogen [Mass/Vol] 25.0 mg/dL Critically high 7.0-18.0 [facility] Comment on above: Performed By: #### P TT, PT #### [facility] [address] [address] [address] Lydia Merritt Urea nitrogen/Creatinine [Mass ratio] 13.7 mg/mg Normal [facility] Comment on above: Performed By: #### P TT, PT #### [facility] [address] [place] [id number] [address] Lydia Merritt [facility]on SARS-CoV-2 (COVID-19) RNA ERIN+probe Ql (Unsp spec) Not detected Normal NOT DETECTED [facility] Comment on above: Result Comment: This test is not yet approved or cleared by the [place] FDA. When there are no FDA-approved or cleared tests available, and other criteria are met, FDA can make tests available under an emergency access mechanism called an Emergency Use Authorization (EUA). The EUA for this test is supported by the [employer] of Health and Human Service's (HHS's) declaration [...] consistent with SARS-CoV-2. Performed By: #### [facility] #### [facility] [address] [place], [place] [id number] Dr. Lydia Merritt Albumin [Mass/volume] in Ser um or PlasmaOrdered By: Rosie Chew on 08-20-2022 Albumin [Mass/Vol] 3.4 g/dL 3.2-5.5 [facility] Albumin [Mass/Vol] 3.3 g/dL 2.9-4.4 [facility] Albumin/Protein.total in 24 hour Urine by ElectrophoresisOrdered By: Rosie Chew on 08-20-2022 Albumin Elph (24H U) [Mass fraction] 47.1 % . [facility] Anisocytosis LM Ql (Bld)Orde red By: Rosie Chew on 08-20-2022 Anisocytosis Ql (Bld) Marked [facility] Basophils Auto (Bld) [#/Vol] Ordered By: Rosie Chew on 08-20-2022 Basophils (Bld) [#/Vol] 0.0 10*3/uL 0.0-0.2 [facility] Basophils/100 WBC Auto (Bld) Ordered By: Rosie Chew on 08-20-2022 Basophils/100 WBC (Bld) 0.3 % . [facility] Creatinine and Glomerular fi ltration rate.predicted panel (S/P/Bld)Ordered By: Rosie Chew on 08-20-2022 Creatinine [Mass/Vol] 2.30 mg/dL 0.64-1.27 [facility] Eosinophils Auto (Bld) [#/Vo l]Ordered By: Rosie Chew on 08-20-2022 Eosinophils (Bld) [#/Vol] 0.2 10*3/uL 0.0-0.45 [facility] Eosinophils/100 WBC Auto (Bl d)Ordered By: Rosie Chew on 08-20-2022 Eosinophils/100 WBC (Bld) 3.1 % . [facility] Erythrocyte distribution wid th Auto (RBC) [Ratio]Ordered By: Rosie Chew on 08-20-2022 Erythrocyte distribution width (RBC) [Ratio] 20.1 % 12.0-14.8 [facility] Estimated glomerular filtrat ion rate (GFR) non- AmericanOrdered By: Rosie Chew on 08-20-2022 GFR/1.73 sq M.predicted among non-blacks MDRD (S/P/Bld) [Vol rate/Area] 28 mL/Min [facility] Gamma globulin/Protein.total in 24 hour Urine by ElectrophoresisOrdered By: Rosie Chew on 08-20-2022 Gamma globulin Elph (24H U) [Mass fraction] 19.8 % . [facility] Globulin Calc (S) [Mass/Vol] Ordered By: Rosie Chew on 08-20-2022 Globulin (S) [Mass/Vol] 2.6 g/dL [facility] Hematocrit Auto (Bld) [Volum e fraction]Ordered By: Rosie Chew on 08-20-2022 Hematocrit (Bld) [Volume fraction] 23.9 % 38.8-50.0 [facility] Hemoglobin [Mass/volume] in BloodOrdered By: Rosie Chew on 08-20-2022 Hemoglobin (Bld) [Mass/Vol] 8.1 g/dL 13.0-17.0 [facility] IgA [Mass/volume] in Serum o r PlasmaOrdered By: Rosie Chew on 08-20-2022 IgA [Mass/Vol] 190 mg/dL 61-437 [facility] IgG [Mass/volume] in Serum o r PlasmaOrdered By: Rosie Chew on 08-20-2022 IgG [Mass/Vol] 996 mg/dL 603-1613 [facility] IgM [Mass/volume] in Serum o r PlasmaOrdered By: Rosie Chew on 08-20-2022 IgM [Mass/Vol] 37 mg/dL 15-143 [facility] Comment on above: Performed at: [facility] [address] [id number] Director: Melchor Agrawal PhD, Phone: [phone] Immunofixation for UrineOrde red By: Rosie Chew on 08-20-2022 Interpretation Immunofixation (U) [Interp] Comment: . [facility] Comment on above: Presence of monoclon al protein is unclear at this time. Suggestrepeat in 3 to 6 months if clinically indicated.Performed at: [facility] [address] [id number] Director: Melchor Agrawal PhD, Phone: [phone] Immunoglobulin light chains. kappa.free [Mass/volume] in SerumOrdered By: Rosie Chew on 08-20-2022 Immunoglobulin light chains.kappa.free (S) [Mass/Vol] 42.0 mg/L 3.3-19.4 [facility] Immunoglobulin light chains. kappa.free/Immunoglobulin light chains.lambda.free [MassOrdered By: Rosie Chew on 08-20-2022 Immunoglobulin light chains.kappa.free/Immun oglobulin light chains.lambda.free (S) [Mass ratio] 1.74 0.26-1.65 [facility] Comment on above: Performed at: [address] [id number] Director: Melchor Agrawal PhD, Phone: [phone] Immunoglobulin light chains. lambda.free [Mass/volume] in Serum or PlasmaOrdered By: Rosie Chew on 08-20-2022 Immunoglobulin light chains.lambda.free [Mass/Vol] 24.1 mg/L 5.7-26.3 [facility] Lactate dehydrogenase measur ement (enzymatic activity/volume)Ordered By: Rosie Chew on 08-20-2022 LDH (Unsp spec) [Catalytic activity/Vol] 123 U/L 45-190 [facility] Leukocytes [#/volume] correc lizbet for nucleated erythrocytes in Blood by Automated counOrdered By: Rosie Chew on 08-20-2022 WBC corrected for nucl RBC Auto (Bld) [#/Vol] 5.9 10*3/uL 4.1-10.5 [facility] Lymphocytes Auto (Bld) [#/Vo l]Ordered By: Rosie Chew on 08-20-2022 Lymphocytes (Bld) [#/Vol] 1.2 10*3/uL 1.00-4.8 [facility] Lymphocytes/100 WBC Auto (Bl d)Ordered By: Rosie Chew on 08-20-2022 Lymphocytes/100 WBC (Bld) 20.5 % . [facility] MCH Auto (RBC) [Entitic mass ]Ordered By: Rosie Chew on 08-20-2022 MCH (RBC) [Entitic mass] 38.3 pg 27.5-35.2 [facility] MCHC Auto (RBC) [Mass/Vol]Or dered By: Rosie Chew on 08-20-2022 MCHC (RBC) [Mass/Vol] 33.7 g/dL 32.5-35.6 [facility] MCV Auto (RBC) [Entitic vol] Ordered By: Rosie Chew on 08-20-2022 MCV (RBC) [Entitic vol] 113.6 fL 83.5-101 [facility] Macrocytes LM Ql (Bld)Ordere d By: Rosie Chew on 08-20-2022 Macrocytes Ql (Bld) Moderate [facility] Monocytes Auto (Bld) [#/Vol] Ordered By: Rosie Chew on 08-20-2022 Monocytes (Bld) [#/Vol] 0.4 10*3/uL 0.0-0.8 [facility] Monocytes/100 WBC Auto (Bld) Ordered By: Rosie Chew on 08-20-2022 Monocytes/100 WBC (Bld) 6.9 % . [facility] Neutrophils Auto (Bld) [#/Vo l]Ordered By: Rosie Chew on 08-20-2022 Neutrophils (Bld) [#/Vol] 4.1 10*3/uL 1.8-7.7 [facility] Neutrophils/100 WBC Auto (Bl d)Ordered By: Rosie Chew on 08-20-2022 Neutrophils/100 WBC (Bld) 69.2 % . [facility] No Panel InformationOrdered By: Rosie Chew on 08-20-2022 Urine Random Prot Electrophor Note See comment . [facility] Comment on above: Protein electrophore sis scan will follow via computer,mail, or technical documentation specialist delivery.Performed at: [facility] [address] [id number] Director: Melchor Agrawal PhD, Phone: [phone] Estimated GFR () 34 mL/Min [facility] Comment on above: GFR estimated refere nce range: According to KDOQI guidelines, <60 ml/min/1.73m2 is sufficient to diagnose a patient with chronic kidney disease. Pharmacy Creatinine Clearance (Chem 30.39 [facility] Protein Electrophoresis M-Anselmo Not observed g/dL Not Observed [facility] Protein Electrophoresis Note See comment . [facility] Comment on above: Protein electrophore sis scan will follow via computer,mail, or technical documentation specialist delivery.Performed at: [facility] [id number] [place], [place] [id number] Director: Melchor Agrawal PhD, Phone: [phone] Nucleated erythrocytes [Pres ence] in Blood by Automated countOrdered By: Rosie Chew on 08-20-2022 Nucleated RBC Auto Ql (Bld) 0.1 /100{WBC} 0-0.5 [facility] Platelet adequacy [Presence] in Blood by Light microscopyOrdered By: Rosie Chew on 08-20-2022 Platelets LM Ql (Bld) Decreased Normal [facility] Platelet mean volume Auto (B ld) [Entitic vol]Ordered By: Rosie Chew on 08-20-2022 Platelet mean volume (Bld) [Entitic vol] 8.7 fL 6.6-10.1 [facility] Platelet morphology finding [Identifier] in BloodOrdered By: Rosie Chew on 08-20-2022 Platelet morphology finding Nom (Bld) Normal Normal [facility] Platelets Auto (Bld) [#/Vol] Ordered By: Rosie Chew on 08-20-2022 Platelets (Bld) [#/Vol] 101 10*3/uL 150-450 [facility] Poikilocytosis [Presence] in Blood by Light microscopyOrdered By: Rosie Chew on 08-20-2022 Poikilocytosis LM Ql (Bld) Moderate [facility] Polychromasia [Presence] in Blood by Light microscopyOrdered By: Rosie Chew on 08-20-2022 Polychromasia LM Ql (Bld) Slight [facility] Protein [Mass/volume] in Ser um or PlasmaOrdered By: Rosie Chew on 08-20-2022 Protein [Mass/Vol] 6.0 g/dL 6.1-7.9 [facility] Protein [Mass/Vol] 6.4 g/dL 6.0-8.5 [facility] Protein [Mass/volume] in Uri neOrdered By: Rsoie Chew on 08-20-2022 Protein (U) [Mass/Vol] 49.4 mg/dL Not Estab. Fi [facility] Protein.monoclonal/Protein.t otal in 24 hour Urine by ElectrophoresisOrdered By: Rosie Chew on 08-20-2022 Protein.monoclonal Elph (24H U) [Mass fraction] Comment: % Not Observed [facility] Comment on above: UPE shows an asymmet rical gamma. RBC Auto (Bld) [#/Vol]Ordere d By: Rosie Chew on 08-20-2022 RBC (Bld) [#/Vol] 2.11 10*6/uL 3.90-5.60 [facility] RBC morphologyOrdered By: Doretha Chew on 08-20-2022 RBC morphology finding Nom (Bld) N/A [facility] Serum globulin measurement ( mass/volume)Ordered By: Rosie Chew on 08-20-2022 Globulin (S) [Mass/Vol] 3.1 g/dL 2.2-3.9 [facility] Serum or plasma alanine etienne otransferase measurement without P-5'-P (enzymatic activiOrdered By: Rosie Chew on 08-20-2022 ALT No additional P-5'-P [Catalytic activity/Vol] 18 U/L 10-60 [facility] Serum or plasma albumin/glob ulin mass ratioOrdered By: Rosie Chew on 08-20-2022 Albumin/Globulin [Mass ratio] 1.3 {ratio} [facility] Albumin/Globulin [Mass ratio] 1.1 {ratio} 0.7-1.7 [facility] Serum or plasma alkaline tammy sphatase measurement (enzymatic activity/volume)Ordered By: Rosie Chew on 08-20-2022 ALP [Catalytic activity/Vol] 93 U/L 32-92 [facility] Serum or plasma alpha 1 glob ulin measurement by electrophoresis (mass/volume)Ordered By: Rosie Chew on 08-20-2022 Alpha 1 globulin Elph [Mass/Vol] 0.3 g/dL 0.0-0.4 [facility] Serum or plasma alpha 2 glob ulin measurement by electrophoresis (mass/volume)Ordered By: Rosie Chew on 08-20-2022 Alpha 2 globulin Elph [Mass/Vol] 0.9 g/dL 0.4-1.0 [facility] Serum or plasma anion gap de terminationOrdered By: Rosie Chew on 08-20-2022 Anion gap [Moles/Vol] 12.7 mmol/L 6.0-15.0 [facility] Serum or plasma aspartate am inotransferase measurement (enzymatic activity/volume)Ordered By: Rosie Chew on 08-20-2022 AST [Catalytic activity/Vol] 19 U/L 10-42 [facility] Serum or plasma beta globuli n measurement by electrophoresis (mass/volume)Ordered By: Rosie Chew on 08-20-2022 Beta globulin Elph [Mass/Vol] 0.9 g/dL 0.7-1.3 [facility] Serum or plasma calcium reese urement (mass/volume)Ordered By: Rosie Chew on 08-20-2022 Calcium [Mass/Vol] 9.1 mg/dL 8.2-10.2 [facility] Serum or plasma chloride gurdeep surement (moles/volume)Ordered By: Rosie Chew on 08-20-2022 Chloride [Moles/Vol] 105 mmol/L 95-114 [facility] Serum or plasma gamma globul in measurement by electrophoresis (mass/volume)Ordered By: Rosie Chew on 08-20-2022 Gamma globulin Elph [Mass/Vol] 0.9 g/dL 0.4-1.8 [facility] Serum or plasma glucose reese urement (mass/volume)Ordered By: Rosie Chew on 08-20-2022 Glucose [Mass/Vol] 156 mg/dL 70-100 [facility] Comment on above: ADA recommended refe rence rangeRandom Glucose Reference Range is dependent on time and content of last meal. Glucose of more than 200 mg/dL in a nonstressed, ambulatory subject supports the diagnosis of Diabetes Mellitus. Serum or plasma potassium me asurement (moles/volume)Ordered By: Rosie Chew on 08-20-2022 Potassium [Moles/Vol] 5.9 mmol/L 3.5-5.1 [facility] Serum or plasma sodium measu rement (moles/volume)Ordered By: Rosie Chew on 08-20-2022 Sodium [Moles/Vol] 134 mmol/L 136-146 [facility] Serum or plasma total biliru bin measurement (mass/volume)Ordered By: Rosie Chew on 08-20-2022 Bilirubin [Mass/Vol] 0.3 mg/dL 0.3-1.2 [facility] Serum or plasma total carbon dioxide measurement (moles/volume)Ordered By: Rosie Chew on 08-20-2022 CO2 [Moles/Vol] 22.2 mmol/L 22.0-30.0 [facility] Serum or plasma urea nitroge n measurement (mass/volume)Ordered By: Rosie Chew on 08-20-2022 Urea nitrogen [Mass/Vol] 28 mg/dL 9-23 [facility] Urine alpha 1 globulin/total protein by electrophoresisOrdered By: Rosie Chew on 08-20-2022 Alpha 1 globulin Elph (U) [Mass fraction] 4.7 % . [facility] Urine alpha 2 globulin/total protein ratio by electrophoresisOrdered By: Rosie Chew on 08-20-2022 Alpha 2 globulin Elph (U) [Mass fraction] 10.8 % . [facility] Urine beta globulin measurem ent by electrophoresis (mass/volume)Ordered By: Rosie Chew on 08-20-2022 Beta globulin Elph (U) [Mass/Vol] 17.6 % . [facility] WBC Auto (Bld) [#/Vol]Ordere d By: Rosie Chew on 08-20-2022 WBC (Bld) [#/Vol] 5.9 10*3/uL 4.1-10.5 [facility] CULTURE URINEon 07-30-2022 CULTURE URINE Culture Observations : NO GROWTH. Normal [facility] Comment on above: Performed By: #### P TT, PT #### [facility] [address] [place] [address] Dr. Lydia Merritt POINT OF CARE GLUCOSEon 07-17 Glucose [Mass/Vol] 194 mg/dL Critically high 74-106 T [facility] Comment on above: Performed By: #### P OCGLUC #### [facility] [address] [place] [address] Dr. Lydia Merritt UA (CLEAN/CATCH) APPLIQUE SEWER/MICRO I F IND.on 07-30-2022 Bilirubin Ql (U) Negative Normal NEGATIVE [facility] Comment on above: Performed By: #### U ACSIND, UMICRO #### [facility] [address] [place] [address] Dr. Lydia Merritt Clarity (U) CLOUDY Abnormal CLEAR [facility] Comment on above: Performed By: #### U ACSIND, UMICRO #### [facility] [address] [place] [address] Dr. Lydia Merritt Color (U) LT. YELLOW Normal YELLOW [facility] Comment on above: Performed By: #### U ACSIND, UMICRO #### [facility] [address] [place] [address] Dr. Lydia Merritt Glucose Ql (U) 100 mg/dl Abnormal NEGATIVE [facility] Comment on above: Performed By: #### U ACSIND, UMICRO #### [facility] [address] [place] [address] Dr. Lydia Merritt Hemoglobin Ql (U) LARGE Abnormal NEGATIVE [facility] Comment on above: Performed By: #### U ACSIND, UMICRO #### [facility] [address] [place] [address] Dr. Lydia Merritt Ketones Ql (U) Negative Normal NEGATIVE [facility] Comment on above: Performed By: #### U ACSIND, UMICRO #### [facility] [address] [place] [address] Dr. Lydia Merritt LEUKOCYTES MODERATE Abnormal NEGATIVE [facility] Comment on above: Performed By: #### U ACSIND, UMICRO #### [facility] [address] [place] [address] Dr. Lydia Merritt Nitrite Ql (U) Negative Normal NEGATIVE [facility] Comment on above: Performed By: #### U ACSIND, UMICRO #### [facility] [address] [place] [address] Dr. Lydia Merritt pH (U) 7.0 [pH] Normal 5-9 [facility] Comment on above: Performed By: #### U ACSIND, UMICRO #### [facility] [address] [place] [address] Dr. Lydia Merritt SPEC GRAVITY 1.010 Normal 1.005-<=1. 025 [facility] Comment on above: Performed By: #### U ACSIND, UMICRO #### [facility] [address] [place] [address] Dr. Lydia Merritt UA PROTEIN >300 Abnormal NEGATIVE/ TRACE [facility] Comment on above: Performed By: #### U ACSIND, UMICRO #### [facility] [address] [place] [address] Dr. Lydia Merritt UR MICRO IND INDICATED Normal [facility] Comment on above: Performed By: #### U ACSIND, UMICRO #### [facility] [address] [place] [address] Dr. Lydia Merritt Urobilinogen Qn (U) 0.2 {Caroline'U}/dL Normal 0.2 - 1. 0 [facility] Comment on above: Performed By: #### U ACSIND, UMICRO #### [facility] [address] [place] [address] Dr. Lydia Merritt URINE MICROSCOPIC ONLYon BACTERIA TRACE Abnormal NONE SEEN [facility] Comment on above: Performed By: #### P TT, PT #### [facility] [address] [place] [address] Dr. Lydia Merritt Bacteria identified Cx Nom (U) INDICATED Normal [facility] Comment on above: Performed By: #### P TT, PT #### [facility] [address] [place] [address] Dr. Lydia Merritt CAST NONE SEEN Normal NONE SEEN [facility] Comment on above: Performed By: #### P TT, PT #### [facility] [address] [place] [address] Dr. Lydia Merritt Crystals LM Nom (Urine sed) NONE SEEN Normal NONE SEEN [facility] Comment on above: Performed By: #### P TT, PT #### [facility] [address] [place] [address] Dr. Lydia Merritt Epithelial cells LM Ql (Urine sed) NONE SEEN Normal NONE SEEN /RARE [facility] Comment on above: Performed By: #### P TT, PT #### [facility] [address] [place] [address] Dr. Lydia Merritt MUCOUS NONE SEEN Normal NONE SEEN [facility] Comment on above: Performed By: #### P TT, PT #### [facility] [address] [place] [address] Dr. Lydia Merritt RBC (U) [#/Vol] /uL Abnormal 0-2 [facility] Comment on above: Performed By: #### P TT, PT #### [facility] [address] [place] [address] Dr. Lydia Merritt WBC (U) [#/Vol] /uL Abnormal NONE SEEN [facility] Comment on above: Performed By: #### P TT, PT #### [facility] [address] [place] [address] Dr. Lydia Merritt Covid-19 PCR (CVDTB)on 07-17 SARS-CoV-2 (COVID-19) RNA ERIN+probe Ql (Unsp spec) Not detected Normal NOT DETECTED [facility] Comment on above: Result Comment: When diagnostic [...] for this test is supported by the [place] of Health and Human Service's declaration that [...] Performed By: #### P TT, PT #### [facility] [address] [address] [address] Lydia Merritt Albumin [Mass/volume] in Ser um or PlasmaOrdered By: Brook Huddleston on 07-21-2022 Albumin [Mass/Vol] 3.0 g/dL 3.2-5.5 [facility] Albumin [Mass/Vol] 2.9 g/dL 2.9-4.4 [facility] Albumin/Protein.total in 24 hour Urine by ElectrophoresisOrdered By: Brook Huddleston on 07-21-2022 Albumin Elph (24H U) [Mass fraction] 35.7 % . [facility] Basophils Auto (Bld) [#/Vol] Ordered By: Brook Huddleston on 07-21-2022 Basophils (Bld) [#/Vol] 0.0 10*3/uL 0.0-0.2 [facility] Basophils/100 WBC Auto (Bld) Ordered By: Brook Huddleston on 07-21-2022 Basophils/100 WBC (Bld) 0.2 % . [facility] Creatinine and Glomerular fi ltration rate.predicted panel (S/P/Bld)Ordered By: Brook Huddleston on 07-21-2022 Creatinine [Mass/Vol] 1.95 mg/dL 0.64-1.27 [facility] Eosinophils Auto (Bld) [#/Vo l]Ordered By: Brook Huddleston on 07-21-2022 Eosinophils (Bld) [#/Vol] 0.1 10*3/uL 0.0-0.45 [facility] Eosinophils/100 WBC Auto (Bl d)Ordered By: Brook Huddleston on 07-21-2022 Eosinophils/100 WBC (Bld) 3.0 % . [facility] Erythrocyte distribution wid th Auto (RBC) [Ratio]Ordered By: Brook Huddleston on 07-21-2022 Erythrocyte distribution width (RBC) [Ratio] 17.1 % 12.0-14.8 [facility] Estimated glomerular filtrat ion rate (GFR) non- AmericanOrdered By: Brook Huddleston on 07-21-2022 GFR/1.73 sq M.predicted among non-blacks MDRD (S/P/Bld) [Vol rate/Area] 34 mL/Min [facility] Gamma globulin/Protein.total in 24 hour Urine by ElectrophoresisOrdered By: Brook Huddleston on 07-21-2022 Gamma globulin Elph (24H U) [Mass fraction] 18.6 % . [facility] Globulin Calc (S) [Mass/Vol] Ordered By: Brook Huddleston on 07-21-2022 Globulin (S) [Mass/Vol] 2.8 g/dL [facility] Hematocrit Auto (Bld) [Volum e fraction]Ordered By: Brook Huddleston on 07-21-2022 Hematocrit (Bld) [Volume fraction] 25.2 % 38.8-50.0 [facility] Hemoglobin [Mass/volume] in BloodOrdered By: Brook Huddleston on 07-21-2022 Hemoglobin (Bld) [Mass/Vol] 8.6 g/dL 13.0-17.0 [facility] IgA [Mass/volume] in Serum o r PlasmaOrdered By: Brook Huddleston on 07-21-2022 IgA [Mass/Vol] 208 mg/dL 61-437 [facility] IgG [Mass/volume] in Serum o r PlasmaOrdered By: Brook Huddleston on 07-21-2022 IgG [Mass/Vol] 905 mg/dL 603-1613 [facility] IgM [Mass/volume] in Serum o r PlasmaOrdered By: Brook Huddleston on 07-21-2022 IgM [Mass/Vol] 24 mg/dL 15-143 [facility] Comment on above: Result confirmed on concentration.Performed at: [facility] [id number] Director: Melchor Agrawal PhD, Phone: [phone] Immunofixation for UrineOrde red By: Brook Huddleston on 07-21-2022 Interpretation Immunofixation (U) [Interp] See comment . [facility] Comment on above: No monoclonality det ected.Performed at: [facility] [address] [id number] Director: Melchor Agrawal PhD, Phone: [phone] Immunoglobulin light chains. kappa.free [Mass/volume] in SerumOrdered By: Brook Huddleston on 07-21-2022 Immunoglobulin light chains.kappa.free (S) [Mass/Vol] 39.4 mg/L 3.3-19.4 [facility] Immunoglobulin light chains. kappa.free/Immunoglobulin light chains.lambda.free [MassOrdered By: Brook Huddleston on 07-21-2022 Immunoglobulin light chains.kappa.free/Immun oglobulin light chains.lambda.free (S) [Mass ratio] 1.62 0.26-1.65 [facility] Comment on above: Performed at: [facility] [address] [id number] Director: Melchor Agrawal PhD, Phone: [phone] Immunoglobulin light chains. lambda.free [Mass/volume] in Serum or PlasmaOrdered By: Brook Huddleston on 07-21-2022 Immunoglobulin light chains.lambda.free [Mass/Vol] 24.3 mg/L 5.7-26.3 [facility] Lactate dehydrogenase measur ement (enzymatic activity/volume)Ordered By: Brook Huddleston on 07-21-2022 LDH (Unsp spec) [Catalytic activity/Vol] 145 U/L 45-190 [facility] Leukocytes [#/volume] correc lizbet for nucleated erythrocytes in Blood by Automated counOrdered By: Brook Huddleston on 07-21-2022 WBC corrected for nucl RBC Auto (Bld) [#/Vol] 3.9 10*3/uL 4.1-10.5 [facility] Lymphocytes Auto (Bld) [#/Vo l]Ordered By: Brook Huddleston on 07-21-2022 Lymphocytes (Bld) [#/Vol] 0.5 10*3/uL 1.00-4.8 [facility] Lymphocytes/100 WBC Auto (Bl d)Ordered By: Brook Huddleston on 07-21-2022 Lymphocytes/100 WBC (Bld) 13.1 % . [facility] MCH Auto (RBC) [Entitic mass ]Ordered By: Brook Huddleston on 07-21-2022 MCH (RBC) [Entitic mass] 37.2 pg 27.5-35.2 [facility] MCHC Auto (RBC) [Mass/Vol]Or dered By: Brook Huddleston on 07-21-2022 MCHC (RBC) [Mass/Vol] 34.0 g/dL 32.5-35.6 [facility] MCV Auto (RBC) [Entitic vol] Ordered By: Brook Huddleston on 07-21-2022 MCV (RBC) [Entitic vol] 109.5 fL 83.5-101 [facility] Monocytes Auto (Bld) [#/Vol] Ordered By: Brook Huddleston on 07-21-2022 Monocytes (Bld) [#/Vol] 0.5 10*3/uL 0.0-0.8 [facility] Monocytes/100 WBC Auto (Bld) Ordered By: Brook Huddleston on 07-21-2022 Monocytes/100 WBC (Bld) 13.2 % . [facility] Neutrophils Auto (Bld) [#/Vo l]Ordered By: Brook Huddleston on 07-21-2022 Neutrophils (Bld) [#/Vol] 2.7 10*3/uL 1.8-7.7 [facility] Neutrophils/100 WBC Auto (Bl d)Ordered By: Brook Huddleston on 07-21-2022 Neutrophils/100 WBC (Bld) 70.5 % . [facility] No Panel InformationOrdered By: Brook Huddleston on 07-21-2022 Estimated GFR () 41 mL/Min [facility] Comment on above: GFR estimated refere nce range: According to KDOQI guidelines, <60 ml/min/1.73m2 is sufficient to diagnose a patient with chronic kidney disease. Pharmacy Creatinine Clearance (Chem 35.77 [facility] Protein Electrophoresis M-Anselmo Comment: g/dL Not Observed [facility] Comment on above: SPE shows asymmetric al beta. Protein Electrophoresis Note See comment . [facility] Comment on above: Protein electrophore sis scan will follow via computer,mail, or technical documentation specialist delivery.Performed at: [facility] [employer] [id number] Director: Melchor Agrawal PhD, Phone: [phone] Urine Random Prot Electrophor Note See comment . [facility] Comment on above: Protein electrophore sis scan will follow via computer,mail, or technical documentation specialist delivery.Performed at: [address] [id number] Director: Melchor Agrawal PhD, Phone: [phone] Nucleated erythrocytes [Pres ence] in Blood by Automated countOrdered By: Brook Huddleston on 07-21-2022 Nucleated RBC Auto Ql (Bld) 0.1 /100{WBC} 0-0.5 [facility] Platelet mean volume Auto (B ld) [Entitic vol]Ordered By: Brook Huddleston on 07-21-2022 Platelet mean volume (Bld) [Entitic vol] 8.3 fL 6.6-10.1 [facility] Platelets Auto (Bld) [#/Vol] Ordered By: Brook Huddleston on 07-21-2022 Platelets (Bld) [#/Vol] 101 10*3/uL 150-450 [facility] Protein [Mass/volume] in Ser um or PlasmaOrdered By: Brook Huddleston on 07-21-2022 Protein [Mass/Vol] 5.8 g/dL 6.1-7.9 [facility] Protein [Mass/Vol] 5.9 g/dL 6.0-8.5 [facility] Protein [Mass/volume] in Uri neOrdered By: Brook Huddleston on 07-21-2022 Protein (U) [Mass/Vol] 95.7 mg/dL Not Estab. [facility] Protein.monoclonal/Protein.t otal in 24 hour Urine by ElectrophoresisOrdered By: Brook Huddleston on 07-21-2022 Protein.monoclonal Elph (24H U) [Mass fraction] Comment: % Not Observed [facility] Comment on above: UPE shows asymmetric al beta and gamma regions. RBC Auto (Bld) [#/Vol]Ordere d By: Brook Huddleston on 07-21-2022 RBC (Bld) [#/Vol] 2.30 10*6/uL 3.90-5.60 [facility] Serum globulin measurement ( mass/volume)Ordered By: Brook Huddleston on 07-21-2022 Globulin (S) [Mass/Vol] 3.0 g/dL 2.2-3.9 [facility] Serum or plasma alanine etienne otransferase measurement without P-5'-P (enzymatic activiOrdered By: Brook Huddleston on 07-21-2022 ALT No additional P-5'-P [Catalytic activity/Vol] 37 U/L 10-60 [facility] Serum or plasma albumin/glob ulin mass ratioOrdered By: Brook Huddleston on 07-21-2022 Albumin/Globulin [Mass ratio] 1.1 {ratio} [facility] Albumin/Globulin [Mass ratio] 1.0 {ratio} 0.7-1.7 [facility] Serum or plasma alkaline tammy sphatase measurement (enzymatic activity/volume)Ordered By: Brook Huddleston on 07-21-2022 ALP [Catalytic activity/Vol] 110 U/L 32-92 [facility] Serum or plasma alpha 1 glob ulin measurement by electrophoresis (mass/volume)Ordered By: Brook Huddleston on 07-21-2022 Alpha 1 globulin Elph [Mass/Vol] 0.4 g/dL 0.0-0.4 [facility] Serum or plasma alpha 2 glob ulin measurement by electrophoresis (mass/volume)Ordered By: Brook Huddleston on 07-21-2022 Alpha 2 globulin Elph [Mass/Vol] 1.0 g/dL 0.4-1.0 [facility] Serum or plasma anion gap de terminationOrdered By: Brook Huddleston on 07-21-2022 Anion gap [Moles/Vol] 15.6 mmol/L 6.0-15.0 [facility] Serum or plasma aspartate am inotransferase measurement (enzymatic activity/volume)Ordered By: Brook Huddleston on 07-21-2022 AST [Catalytic activity/Vol] 27 U/L 10-42 [facility] Serum or plasma beta globuli n measurement by electrophoresis (mass/volume)Ordered By: Brook Huddleston on 07-21-2022 Beta globulin Elph [Mass/Vol] 0.8 g/dL 0.7-1.3 [facility] Serum or plasma calcium resee urement (mass/volume)Ordered By: Brook Huddleston on 07-21-2022 Calcium [Mass/Vol] 8.6 mg/dL 8.2-10.2 [facility] Serum or plasma chloride gurdeep surement (moles/volume)Ordered By: Brook Huddleston on 07-21-2022 Chloride [Moles/Vol] 100 mmol/L 95-114 [facility] Serum or plasma gamma globul in measurement by electrophoresis (mass/volume)Ordered By: Brook Huddleston on 07-21-2022 Gamma globulin Elph [Mass/Vol] 0.8 g/dL 0.4-1.8 [facility] Serum or plasma glucose reese urement (mass/volume)Ordered By: Brook Huddleston on 07-21-2022 Glucose [Mass/Vol] 191 mg/dL 70-100 [facility] Comment on above: ADA recommended refe rence rangeRandom Glucose Reference Range is dependent on time and content of last meal. Glucose of more than 200 mg/dL in a nonstressed, ambulatory subject supports the diagnosis of Diabetes Mellitus. Serum or plasma potassium me asurement (moles/volume)Ordered By: Brook Huddleston on 07-21-2022 Potassium [Moles/Vol] 4.7 mmol/L 3.5-5.1 [facility] Serum or plasma sodium measu rement (moles/volume)Ordered By: Brook Huddleston on 07-21-2022 Sodium [Moles/Vol] 128 mmol/L 136-146 [facility] Serum or plasma total biliru bin measurement (mass/volume)Ordered By: Brook Huddleston on 07-21-2022 Bilirubin [Mass/Vol] 0.7 mg/dL 0.3-1.2 [facility] Serum or plasma total carbon dioxide measurement (moles/volume)Ordered By: Brook Huddleston on 07-21-2022 CO2 [Moles/Vol] 17.1 mmol/L 22.0-30.0 [facility] Serum or plasma urea nitroge n measurement (mass/volume)Ordered By: Brook Huddleston on 07-21-2022 Urea nitrogen [Mass/Vol] 26 mg/dL 9-23 [facility] Urine alpha 1 globulin/total protein by electrophoresisOrdered By: Brook Huddleston on 07-21-2022 Alpha 1 globulin Elph (U) [Mass fraction] 6.5 % . [facility] Urine alpha 2 globulin/total protein ratio by electrophoresisOrdered By: Brook Huddleston on 07-21-2022 Alpha 2 globulin Elph (U) [Mass fraction] 18.3 % . [facility] Urine beta globulin measurem ent by electrophoresis (mass/volume)Ordered By: Brook Huddleston on 07-21-2022 Beta globulin Elph (U) [Mass/Vol] 20.8 % . [facility] WBC Auto (Bld) [#/Vol]Ordere d By: Brook Huddleston on 07-21-2022 WBC (Bld) [#/Vol] 3.9 10*3/uL 4.1-10.5 [facility] CBC AUTO DIFFon 07-17-2022 BASO # 0.0 103/ul Normal 0.0-0.1 [facility] Comment on above: Performed By: #### P TT, PT #### [facility] [address] [address] [address] Lydia Merritt Basophils/100 WBC (Bld) 0.4 % Normal 0.2-2.0 [facility] Comment on above: Performed By: #### P TT, PT #### [facility] [address] [address] [address] Lydia Merritt EO # 0.4 103/ul Normal 0.0-0.7 [facility] Comment on above: Performed By: #### P TT, PT #### [facility] [address] [address] [address] Lydia Merritt Eosinophils/100 WBC (Bld) 7.6 % Critically high 0.9-7.0 [facility] Comment on above: Performed By: #### P TT, PT #### [facility] [address] [address] [address] Lydia Merritt Erythrocyte distribution width (RBC) [Ratio] 16.0 % Critically high 11.0-15.0 [facility] Comment on above: Performed By: #### P TT, PT #### [facility] [address] [place] [address] Dr. Lydia Merritt Hematocrit (Bld) [Volume fraction] 26.9 % Critically low 42.0-54.0 [facility] Comment on above: Performed By: #### P TT, PT #### [facility] [address] [place] [address] Dr. Lydia Merritt Hemoglobin (Bld) [Mass/Vol] 9.0 g/dL Critically low 14.0-18.0 [facility] Comment on above: Performed By: #### P TT, PT #### [facility] [address] [place] [address] Dr. Lydia Merritt IG # 0.02 10e3/ul Normal 0.00-0.03 [facility] Comment on above: Performed By: #### P TT, PT #### [facility] [address] [place] [address] Dr. Lydia Merritt IG % 0.4 % Normal 0.0-0.5 [facility] Comment on above: Performed By: #### P TT, PT #### [facility] [address] [place] [address] Dr. Lydia Merritt LYMPH # 0.6 103/ul Critically low 1.2-3.8 [facility] Comment on above: Performed By: #### P TT, PT #### [facility] [address] [place] [address] Dr. Lydia Merritt Lymphocytes/100 WBC (Bld) 12.4 % Critically low 20.5-60.0 [facility] Comment on above: Performed By: #### P TT, PT #### [facility] [address] [place] [address] Dr. Lydia Merritt MANUAL DIFF REQ NO Normal [facility] Comment on above: Performed By: #### P TT, PT #### [facility] [address] [place] [address] Dr. Lydia Merritt MCH (RBC) [Entitic mass] 37.3 pg Critically high 25.9-34.0 [facility] Comment on above: Performed By: #### P TT, PT #### [facility] [address] [address] [address] Lydia Merritt MCHC (RBC) [Mass/Vol] 33.5 g/dL Normal 29.9-35.2 [facility] Comment on above: Performed By: #### P TT, PT #### [facility] [address] [place] [address] Dr. Lydia Merritt MCV (RBC) [Entitic vol] 111.6 fL Critically high 80.0-94 .0 [facility] Comment on above: Result Comment: MACR OCYTOSIS 2+ Performed By: #### P TT, PT #### [facility] [address] [place] [address] Dr. Lydia Merritt MONO # 0.5 103/ul Normal 0.3-0.8 [facility] Comment on above: Performed By: #### P TT, PT #### [facility] [address] [place] [address] Dr. Lydia Merritt Monocytes/100 WBC (Bld) 10.8 % Normal 1.7-12.0 [facility] Comment on above: Performed By: #### P TT, PT #### [facility] [address] [place] [address] Dr. Lydia Merritt NEUT # 3.2 103/ul Normal 1.4-6.5 [facility] Comment on above: Performed By: #### P TT, PT #### [facility] [address] [place] [address] Dr. Lydia Merritt Neutrophils/100 WBC (Bld) 68.4 % Normal 43.0-75.0 [facility] Comment on above: Performed By: #### P TT, PT #### [facility] [address] [place] [address] Dr. Lydia Merritt Platelet mean volume (Bld) [Entitic vol] 10.1 fL Normal 9.5-13.5 [facility] Comment on above: Performed By: #### P TT, PT #### [facility] [address] [place] [address] Dr. Lydia Merritt PLT 110 103/ul Critically low 150-450 [facility] Comment on above: Performed By: #### P TT, PT #### [facility] [address] [address] [address] Lydia Merritt RBC 2.41 106/ul Critically low 4.70-6.10 [facility] Comment on above: Performed By: #### P TT, PT #### [facility] [address] [address] [address] Lydia Merritt WBC 4.6 103/ul Normal 4.0-11.0 [facility] Comment on above: Performed By: #### P TT, PT #### [facility] [address] [place] [address] Dr. Lydia Merritt PROF CHEM 8 (BAS METB)on Anion gap [Moles/Vol] 11.9 mmol/L Normal [facility] Comment on above: Performed By: #### B MP #### [facility] [address] [place] [address] Dr. Lydia Merritt Calcium [Mass/Vol] 9.0 mg/dL Normal 8.5-10.1 [facility] Comment on above: Performed By: #### B MP #### [facility] [address] [place] [address] Dr. Lydia Merritt Chloride [Moles/Vol] 105 mmol/L Normal 98-107 [facility] Comment on above: Performed By: #### B MP #### [facility] [address] [place] [address] Dr. Lydia Merritt CO2 [Moles/Vol] 25.2 mmol/L Normal 21.0-32.0 [facility] Comment on above: Performed By: #### B MP #### [facility] [address] [place] [address] Dr. Lydia Merritt Creatinine [Mass/Vol] 1.71 mg/dL Critically high 0.70-1.30 [facility] Comment on above: Performed By: #### B MP #### [facility] [address] [place] [address] Dr. Lydia Merritt EGFR-AF MONGOLIAN 47 mL/min/1.73m2 Critically low >=60 [facility] Comment on above: Performed By: #### B MP #### [facility] [address] [address] [address] Lydia Merritt EGFR-NON AF MONGOLIAN 39 mL/min/1.73m2 Critically low >=60 [facility] Comment on above: Performed By: #### B MP #### [facility] [address] [address] [address] Lydia Merritt Glucose [Mass/Vol] 127 mg/dL Critically high 74-106 T [facility] Comment on above: Performed By: #### B MP #### [facility] [address] [address] [address] Lydia Merritt Potassium [Moles/Vol] 5.1 mmol/L Normal 3.5-5.1 [facility] Comment on above: Performed By: #### B MP #### [facility] [address] [address] [address] Lydia Merritt Sodium [Moles/Vol] 137 mmol/L Normal 136-145 [facility] Comment on above: Performed By: #### B MP #### [facility] [address] [address] [address] Lydia Merritt Urea nitrogen [Mass/Vol] 23.0 mg/dL Critically high 7.0-18.0 [facility] Comment on above: Performed By: #### B MP #### [facility] [address] [address] [address] Lydia Merritt Urea nitrogen/Creatinine [Mass ratio] 13.5 mg/mg Normal [facility] Comment on above: Performed By: #### B MP #### [facility] [address] [address] [address] Lydia Merritt PROTIMEon 07-17-2022 INR Coag (PPP) [Relative time] 0.97 {INR} Normal [facility] Comment on above: Performed By: #### P TT, PT #### [facility] [address] [address] [address] Lydia Merritt INR GUIDELINES SEE BELOW Normal [facility] Comment on above: Result Comment: [place]ILL[place] RED INR: 2.0 - 3.0 CONDITIONS NOT LISTED BELOW 2.5 - 3.5 FOR PROSTHETIC HEART VALVE REPLACEMENT 2.5 - 3.5 RECURRENT THROMBOSIS Performed By: #### P TT, PT #### [facility] [address] [place] [address] Dr. Lydia Merritt PT Coag (PPP) [Time] 10.5 s Normal 9.0-11.6 [facility] Comment on above: Performed By: #### P TT, PT #### [facility] [address] [place] [address] Dr. Lydia Merritt PTTon 07-17-2022 aPTT Coag (Bld) [Time] 27.1 s Normal 22.3-36.2 [facility] Comment on above: Performed By: #### P TT, PT #### [facility] [address] [place] [address] Dr. Lydia Merritt US BLADDERon 07-17-2022 US [...] by: CHAD BURNETTE Date: 2022-07-17 17:10 Normal [facility] XR CHEST 2 Von 07-17-2022 XR [...] by: CHAD QUINTERO Date: 2022-07-17 12:21 Normal [facility] Clinic Note - Heme Oncon Clinic Note - Heme Onc Cancer History: Treatment Synopsis: Mr Cunningham was initially referred from Dr. 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 Hospital course notable for 8 of 8 blood cultures growing MSSA, ECHO negative for vegetation. 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 ONC - Presented with light chain nephropathy in February 2020. - At the time of diagnosis: Free [place] Light Chain was 1200 mg/dL; M Anselmo IgG [place] P (more content not included)... Normal [facility] Albumin [Mass/volume] in Ser um or PlasmaOrdered By: Brook Huddleston on 06-13-2022 Albumin [Mass/Vol] 3.907771969587 g/dL [facility] Comment on above: Reference: 2.9-4.4 Albumin/Protein.total in 24 hour Urine by ElectrophoresisOrdered By: Brook Huddleston on 06-13-2022 Albumin Elph (24H U) [Mass fraction] 40.2 % . [facility] Anisocytosis LM Ql (Bld)Orde red By: Brook Huddleston on 06-13-2022 Anisocytosis Ql (Bld) Slight [facility] Basophils Auto (Bld) [#/Vol] Ordered By: Brook Huddleston on 06-13-2022 Basophils (Bld) [#/Vol] 0.0 10*3/uL 0.0-0.2 [facility] Basophils/100 WBC Auto (Bld) Ordered By: Brook Huddleston on 06-13-2022 Basophils/100 WBC (Bld) 0.5 % . [facility] Body fluid albumin measureme nt (mass/volume)Ordered By: Brook Huddleston on 06-13-2022 Albumin (Body fld) [Mass/Vol] 3.3 g/dL 3.2-5.5 [facility] Creatinine and Glomerular fi ltration rate.predicted panel (S/P/Bld)Ordered By: Brook Huddleston on 06-13-2022 Creatinine [Mass/Vol] 2.40 mg/dL 0.64-1.27 [facility] Eosinophils Auto (Bld) [#/Vo l]Ordered By: Brook Huddleston on 06-13-2022 Eosinophils (Bld) [#/Vol] 0.6 10*3/uL 0.0-0.45 [facility] Eosinophils/100 WBC Auto (Bl d)Ordered By: Brook Huddleston on 06-13-2022 Eosinophils/100 WBC (Bld) 12.4 % . [facility] Erythrocyte distribution wid th Auto (RBC) [Ratio]Ordered By: Brook Huddleston on 06-13-2022 Erythrocyte distribution width (RBC) [Ratio] 15.3 % 12.0-14.8 [facility] Estimated glomerular filtrat ion rate (GFR) non- AmericanOrdered By: Brook Huddleston on 06-13-2022 GFR/1.73 sq M.predicted among non-blacks MDRD (S/P/Bld) [Vol rate/Area] 26 mL/Min [facility] Gamma globulin/Protein.total in 24 hour Urine by ElectrophoresisOrdered By: Brook Huddleston on 06-13-2022 Gamma globulin Elph (24H U) [Mass fraction] 23.3 % . [facility] Globulin Calc (S) [Mass/Vol] Ordered By: Brook Huddleston on 06-13-2022 Globulin (S) [Mass/Vol] 2.8 g/dL [facility] Hematocrit Auto (Bld) [Volum e fraction]Ordered By: Brook Huddleston on 06-13-2022 Hematocrit (Bld) [Volume fraction] 30.5 % 38.8-50.0 [facility] Hemoglobin [Mass/volume] in BloodOrdered By: Brook Huddleston on 06-13-2022 Hemoglobin (Bld) [Mass/Vol] 10.2 g/dL 13.0-17.0 [facility] IgA [Mass/volume] in Serum o r PlasmaOrdered By: Brook Huddleston on 06-13-2022 IgA [Mass/Vol] 232 mg/dL [facility] Comment on above: Reference: 61-437 IgG [Mass/volume] in Serum o r PlasmaOrdered By: Brook Huddleston on 06-13-2022 IgG [Mass/Vol] 972 mg/dL [facility] Comment on above: Reference: [id number] IgM [Mass/volume] in Serum o r PlasmaOrdered By: Brook Huddleston on 06-13-2022 IgM [Mass/Vol] 30 mg/dL [facility] Comment on above: Reference: [id number] Immunofixation for UrineOrde red By: Brook Huddleston on 06-13-2022 Interpretation Immunofixation (U) [Interp] Comment: . [facility] Comment on above: Presence of monoclon al protein is unclear at this time. Suggestrepeat in 3 to 6 months if clinically indicated.Performed at: - [facility] [place] [id number] Director: Melchor Agrawal PhD, Phone: [phone] Laboratory - Hematology and Cell countsOrdered By: Brook Huddleston on 06-13-2022 Nucleated RBC/100 WBC (Bld) [Ratio] 0.3 % 0-0.5 [facility] WBC (Bld) [#/Vol] 5.4 10*3/uL 4.5-11.0 [facility] Lactate dehydrogenase measur ement (enzymatic activity/volume)Ordered By: Brook Huddleston on 06-13-2022 LDH (Unsp spec) [Catalytic activity/Vol] 125 U/L 45-190 [facility] Lymphocytes Auto (Bld) [#/Vo l]Ordered By: Brook Huddleston on 06-13-2022 Lymphocytes (Bld) [#/Vol] 0.9 10*3/uL 1.00-4.8 [facility] Lymphocytes/100 WBC Auto (Bl d)Ordered By: Brook Huddleston on 06-13-2022 Lymphocytes/100 WBC (Bld) 18.9 % . [facility] MCH Auto (RBC) [Entitic mass ]Ordered By: Brook Huddleston on 06-13-2022 MCH (RBC) [Entitic mass] 36.7 pg 27.5-35.2 [facility] MCHC Auto (RBC) [Mass/Vol]Or dered By: Brook Huddleston on 06-13-2022 MCHC (RBC) [Mass/Vol] 33.5 g/dL 32.5-35.6 [facility] MCV Auto (RBC) [Entitic vol] Ordered By: Brook Huddleston on 06-13-2022 MCV (RBC) [Entitic vol] 109.7 fL 83.5-101 [facility] Macrocytes LM Ql (Bld)Ordere d By: Brook Huddleston on 06-13-2022 Macrocytes Ql (Bld) Moderate [facility] Monocytes Auto (Bld) [#/Vol] Ordered By: Brook Huddleston on 06-13-2022 Monocytes (Bld) [#/Vol] 0.7 10*3/uL 0.0-0.8 [facility] Monocytes/100 WBC Auto (Bld) Ordered By: Brook Huddleston on 06-13-2022 Monocytes/100 WBC (Bld) 14.2 % . [facility] Neutrophils Auto (Bld) [#/Vo l]Ordered By: Brook Huddleston on 06-13-2022 Neutrophils (Bld) [#/Vol] 2.7 10*3/uL 1.8-7.7 [facility] Neutrophils/100 WBC Auto (Bl d)Ordered By: Brook Huddleston on 06-13-2022 Neutrophils/100 WBC (Bld) 54.0 % . [facility] No Panel InformationOrdered By: Brook Huddleston on 06-13-2022 0.3 % 0-0.5 [facility] Estimated GFR () 32 mL/Min [facility] Comment on above: GFR estimated refere nce range: According to KDOQI guidelines, <60 ml/min/1.73m2 is sufficient to diagnose a patient with chronic kidney disease. Pharmacy Creatinine Clearance (Chem 30.32 [facility] Protein Electrophoresis M-Anselmo Not observed [facility] Comment on above: Reference: Not Obser jonathan Protein Electrophoresis Note See comment [facility] Comment on above: Protein electrophore sis scan will follow via computer, mail, or technical documentation specialist delivery.Performing Labs01: CB - [facility] [address], [id number] Dir: Melchor Agrawal, PhDFor Inquiries, the physician may contact Branch: [phone] Lab: [phone] Serum Immunofixation See comment [facility] Comment on above: No monoclonality det ected. Urine Random Prot Electrophor Note See comment . [facility] Comment on above: Protein electrophore sis scan will follow via computer,mail, or technical documentation specialist delivery. See comment [facility] Ovalocyte detectionOrdered B y: Brook Huddleston on 06-13-2022 Ovalocytes LM Ql (Bld) [facility] Platelet adequacy [Presence] in Blood by Light microscopyOrdered By: Brook Huddleston on 06-13-2022 Platelets LM Ql (Bld) Decreased Normal [facility] Platelet mean volume Auto (B ld) [Entitic vol]Ordered By: Brook Huddleston on 06-13-2022 Platelet mean volume (Bld) [Entitic vol] 9.1 fL 6.6-10.1 [facility] Platelet morphology finding [Identifier] in BloodOrdered By: Brook Huddleston on 06-13-2022 Platelet morphology finding Nom (Bld) Normal Normal [facility] Platelets Auto (Bld) [#/Vol] Ordered By: Brook Huddleston on 06-13-2022 Platelets (Bld) [#/Vol] 122 10*3/uL 150-450 [facility] Poikilocytosis [Presence] in Blood by Light microscopyOrdered By: Brook Huddleston on 06-13-2022 Poikilocytosis LM Ql (Bld) Slight [facility] Protein [Mass/volume] in Ser um or PlasmaOrdered By: Brook Huddleston on 06-13-2022 Protein [Mass/Vol] 6.1 g/dL 6.1-7.9 [facility] Protein [Mass/Vol] 6.153403125463 g/dL [facility] Comment on above: Reference: 6.0-8.5 Protein [Mass/volume] in Uri neOrdered By: Brook Huddleston on 06-13-2022 Protein (U) [Mass/Vol] 132.7 mg/dL Not Estab. F [facility] Protein.monoclonal/Protein.t otal in 24 hour Urine by ElectrophoresisOrdered By: Brook Huddleston on 06-13-2022 Protein.monoclonal Elph (24H U) [Mass fraction] Comment: % Not Observed [facility] Comment on above: UPE shows asymmetric al gamma. RBC Auto (Bld) [#/Vol]Ordere d By: Brook Huddleston on 06-13-2022 RBC (Bld) [#/Vol] 2.78 10*6/uL 3.90-5.60 [facility] RBC morphologyOrdered By: Am y Flauqito on 06-13-2022 RBC morphology finding Nom (Bld) N/A [facility] Serum globulin measurement ( mass/volume)Ordered By: Brook Huddleston on 06-13-2022 Globulin (S) [Mass/Vol] 3.799997294239 g/dL [facility] Comment on above: Reference: 2.2-3.9 Serum or plasma alanine etienne otransferase measurement without P-5'-P (enzymatic activiOrdered By: Brook Huddleston on 06-13-2022 ALT No additional P-5'-P [Catalytic activity/Vol] 33 U/L [facility] Serum or plasma albumin/glob ulin mass ratioOrdered By: Brook Huddleston on 06-13-2022 Albumin/Globulin [Mass ratio] 1.2 {ratio} [facility] Albumin/Globulin [Mass ratio] 1.0 {ratio} [facility] Comment on above: Reference: 0.7-1.7 Serum or plasma alkaline tammy sphatase measurement (enzymatic activity/volume)Ordered By: Brook Huddleston on 06-13-2022 ALP [Catalytic activity/Vol] 116 U/L 32-92 [facility] Serum or plasma alpha 1 glob ulin measurement by electrophoresis (mass/volume)Ordered By: Brook Huddleston on 06-13-2022 Alpha 1 globulin Elph [Mass/Vol] 0.5294733506149 g/dL [facility] Comment on above: Reference: 0.0-0.4 Serum or plasma alpha 2 glob ulin measurement by electrophoresis (mass/volume)Ordered By: Brook Huddleston on 06-13-2022 Alpha 2 globulin Elph [Mass/Vol] 1.850899509569 g/dL [facility] Comment on above: Reference: 0.4-1.0 Serum or plasma anion gap de terminationOrdered By: Brook Huddleston on 06-13-2022 Anion gap [Moles/Vol] 17.0 mmol/L 6.0-15.0 [facility] Serum or plasma aspartate am inotransferase measurement (enzymatic activity/volume)Ordered By: Brook Huddleston on 06-13-2022 AST [Catalytic activity/Vol] 24 U/L [facility] Serum or plasma beta globuli n measurement by electrophoresis (mass/volume)Ordered By: Brook Huddleston on 06-13-2022 Beta globulin Elph [Mass/Vol] 1.180627140970 g/dL [facility] Comment on above: Referene: 0.7-1.3 Serum or plasma calcium reese urement (mass/volume)Ordered By: Brook Huddleston on 06-13-2022 Calcium [Mass/Vol] 9.2 mg/dL 8.2-10.2 [facility] Serum or plasma chloride gurdeep surement (moles/volume)Ordered By: Brook Huddleston on 06-13-2022 Chloride [Moles/Vol] 101 mmol/L 95-114 [facility] Serum or plasma gamma globul in measurement by electrophoresis (mass/volume)Ordered By: Brook Huddleston on 06-13-2022 Gamma globulin Elph [Mass/Vol] 1.599764568086 g/dL [facility] Comment on above: Reference: 0.4-1.8 Serum or plasma glucose reese urement (mass/volume)Ordered By: Brook Huddleston on 06-13-2022 Glucose [Mass/Vol] 176 mg/dL 70-100 [facility] Comment on above: ADA recommended refe rence rangeRandom Glucose Reference Range is dependent on time and content of last meal. Glucose of more than 200 mg/dL in a nonstressed, ambulatory subject supports the diagnosis of Diabetes Mellitus. Serum or plasma potassium me asurement (moles/volume)Ordered By: Brook Huddleston on 06-13-2022 Potassium [Moles/Vol] 4.9 mmol/L 3.5-5.1 [facility] Serum or plasma sodium measu rement (moles/volume)Ordered By: Brook Huddleston on 06-13-2022 Sodium [Moles/Vol] 133 mmol/L 136-146 [facility] Serum or plasma total biliru bin measurement (mass/volume)Ordered By: Brook Huddleston on 06-13-2022 Bilirubin [Mass/Vol] 0.6 mg/dL 0.3-1.2 [facility] Serum or plasma total carbon dioxide measurement (moles/volume)Ordered By: Brook Huddleston on 06-13-2022 CO2 [Moles/Vol] 19.9 mmol/L 22.0-30.0 [facility] Serum or plasma urea nitroge n measurement (mass/volume)Ordered By: Brook Huddleston on 06-13-2022 Urea nitrogen [Mass/Vol] 32 mg/dL 9-23 [facility] Urine alpha 1 globulin/total protein by electrophoresisOrdered By: Brook Huddleston on 06-13-2022 Alpha 1 globulin Elph (U) [Mass fraction] 5.5 % . [facility] Urine alpha 2 globulin/total protein ratio by electrophoresisOrdered By: Brook Huddleston on 06-13-2022 Alpha 2 globulin Elph (U) [Mass fraction] 11.8 % . [facility] Urine beta globulin measurem ent by electrophoresis (mass/volume)Ordered By: Brook Huddleston on 06-13-2022 Beta globulin Elph (U) [Mass/Vol] 19.2 % . [facility] WBC Auto (Bld) [#/Vol]Ordere d By: Brook Huddleston on 06-13-2022 WBC (Bld) [#/Vol] 5.0 10*3/uL 4.1-10.5 [facility] Activated partial thrombopla stin time (aPTT) in platelet poor plasma by coagulation aOrdered By: Brook Huddleston on 04-30-2022 aPTT Coag (PPP) [Time] 30.1 s 25.1-36.5 [facility] Albumin [Mass/volume] in Ser um or PlasmaOrdered By: Brook Huddleston on 04-30-2022 Albumin [Mass/Vol] 3.5 g/dL 3.2-5.5 [facility] Albumin [Mass/Vol] 3.7 g/dL 2.9-4.4 [facility] Albumin/Protein.total in 24 hour Urine by ElectrophoresisOrdered By: Brook Huddleston on 04-30-2022 Albumin Elph (24H U) [Mass fraction] 36.8 % . [facility] Basophils Auto (Bld) [#/Vol] Ordered By: Brook Huddleston on 04-30-2022 Basophils (Bld) [#/Vol] 0.0 10*3/uL 0.0-0.2 [facility] Basophils/100 WBC Auto (Bld) Ordered By: Brook Huddleston on 04-30-2022 Basophils/100 WBC (Bld) 0.8 % . F [facility] Blood anisocytosis detection Ordered By: Brook Huddleston on 04-30-2022 Anisocytosis Ql (Bld) Slight [facility] Blood hemoglobin measurement (mass/volume)Ordered By: Brook Huddleston on 04-30-2022 Hemoglobin (Bld) [Mass/Vol] 10.7 g/dL 13.0-17.0 [facility] Blood leukocytes automated c ount (number/volume)Ordered By: Brook Huddleston on 04-30-2022 WBC (Bld) [#/Vol] 3.4 10*3/uL 4.5-11.0 [facility] Blood polychromasia detectio n by light microscopyOrdered By: Brook Huddleston on 04-30-2022 Polychromasia LM Ql (Bld) Slight [facility] Creatinine and Glomerular fi ltration rate.predicted panel (S/P/Bld)Ordered By: Brook Huddleston on 04-30-2022 Creatinine [Mass/Vol] 1.81 mg/dL 0.64-1.27 [facility] Eosinophils Auto (Bld) [#/Vo l]Ordered By: Brook Huddleston on 04-30-2022 Eosinophils (Bld) [#/Vol] 0.3 10*3/uL 0.0-0.45 [facility] Eosinophils/100 WBC Auto (Bl d)Ordered By: Brook Huddleston on 04-30-2022 Eosinophils/100 WBC (Bld) 9.9 % . [facility] Erythrocyte distribution wid th Auto (RBC) [Ratio]Ordered By: Brook Huddleston on 04-30-2022 Erythrocyte distribution width (RBC) [Ratio] 16.8 % 12.0-14.8 [facility] Estimated glomerular filtrat ion rate (GFR) non- AmericanOrdered By: Brook Huddleston on 04-30-2022 GFR/1.73 sq M.predicted among non-blacks MDRD (S/P/Bld) [Vol rate/Area] 37 mL/Min [facility] Gamma globulin/Protein.total in 24 hour Urine by ElectrophoresisOrdered By: Brook Huddleston on 04-30-2022 Gamma globulin Elph (24H U) [Mass fraction] 23.7 % . [facility] Hematocrit Auto (Bld) [Volum e fraction]Ordered By: Brook Huddleston on 04-30-2022 Hematocrit (Bld) [Volume fraction] 31.6 % 38.8-50.0 [facility] IgA [Mass/volume] in Serum o r PlasmaOrdered By: Brook Huddleston on 04-30-2022 IgA [Mass/Vol] 190 mg/dL 61-437 [facility] IgG [Mass/volume] in Serum o r PlasmaOrdered By: Brook Huddleston on 04-30-2022 IgG [Mass/Vol] 912 mg/dL 603-1613 [facility] IgM [Mass/volume] in Serum o r PlasmaOrdered By: Brook Huddleston on 04-30-2022 IgM [Mass/Vol] 29 mg/dL 15-143 [facility] Comment on above: Performed at: [facility] [place] [id number] Director: Melchor Agrawal PhD, Phone: [phone] Immunofixation for UrineOrde red By: Brook Huddleston on 04-30-2022 Interpretation Immunofixation (U) [Interp] See comment . [facility] Comment on above: No monoclonality det ected.Performed at: [facility] [address] [id number] Director: Melchor Agrawal PhD, Phone: [phone] Immunoglobulin light chains. kappa.free [Mass/volume] in SerumOrdered By: Brook Huddleston on 04-30-2022 Immunoglobulin light chains.kappa.free (S) [Mass/Vol] 45.5 mg/L 3.3-19.4 [facility] Immunoglobulin light chains. kappa.free/Immunoglobulin light chains.lambda.free [MassOrdered By: Brook Huddleston on 04-30-2022 Immunoglobulin light chains.kappa.free/Immun oglobulin light chains.lambda.free (S) [Mass ratio] 1.63 0.26-1.65 [facility] Comment on above: Performed at: [address] [id number] Director: Melchor Agrawal PhD, Phone: [phone] Immunoglobulin light chains. lambda.free [Mass/volume] in Serum or PlasmaOrdered By: Brook Huddleston on 04-30-2022 Immunoglobulin light chains.lambda.free [Mass/Vol] 27.9 mg/L 5.7-26.3 [facility] Laboratory - CoagulationOrde red By: Brook Huddleston on 04-30-2022 PT Coag (PPP) [Time] 11.6 s 9.0-12.9 [facility] - Hematology and Cell countsOrdered By: Brook Huddleston on 04-30-2022 Nucleated RBC/100 WBC (Bld) [Ratio] 0.1 % 0-0.5 [facility] Lactate dehydrogenase measur ement (enzymatic activity/volume)Ordered By: Brook Huddleston on 04-30-2022 LDH (Unsp spec) [Catalytic activity/Vol] 240 U/L 45-190 [facility] Lymphocytes Auto (Bld) [#/Vo l]Ordered By: Brook Huddleston on 04-30-2022 Lymphocytes (Bld) [#/Vol] 0.8 10*3/uL 1.00-4.8 [facility] Lymphocytes/100 WBC Auto (Bl d)Ordered By: Brook Huddleston on 04-30-2022 Lymphocytes/100 WBC (Bld) 24.5 % . [facility] MCH Auto (RBC) [Entitic mass ]Ordered By: Brook Huddleston on 04-30-2022 MCH (RBC) [Entitic mass] 38.2 pg 27.5-35.2 [facility] MCHC Auto (RBC) [Mass/Vol]Or dered By: Brook Huddleston on 04-30-2022 MCHC (RBC) [Mass/Vol] 33.8 g/dL 32.5-35.6 [facility] MCV Auto (RBC) [Entitic vol] Ordered By: Brook Huddleston on 04-30-2022 MCV (RBC) [Entitic vol] 113.0 fL 83.5-101 [facility] Macrocytes detectionOrdered By: Brook Huddleston on 04-30-2022 Macrocytes Ql (Bld) Moderate [facility] Monocytes Auto (Bld) [#/Vol] Ordered By: Brook Huddleston on 04-30-2022 Monocytes (Bld) [#/Vol] 0.3 10*3/uL 0.0-0.8 [facility] Monocytes/100 WBC Auto (Bld) Ordered By: Brook Huddleston on 04-30-2022 Monocytes/100 WBC (Bld) 9.0 % . [facility] Neutrophils Auto (Bld) [#/Vo l]Ordered By: Brook Huddleston on 04-30-2022 Neutrophils (Bld) [#/Vol] 1.9 10*3/uL 1.8-7.7 [facility] Neutrophils/100 WBC Auto (Bl d)Ordered By: Brook Huddleston on 04-30-2022 Neutrophils/100 WBC (Bld) 55.8 % . [facility] No Panel InformationOrdered By: Brook Huddleston on 04-30-2022 Urine Random Prot Electrophor Note See comment . [facility] Comment on above: Protein electrophore sis scan will follow via computer,mail, or technical documentation specialist delivery. Estimated GFR () 44 mL/Min [facility] Comment on above: GFR estimated refere nce range: According to KDOQI guidelines, <60 ml/min/1.73m2 is sufficient to diagnose a patient with chronic kidney disease. Pharmacy Creatinine Clearance (Chem 40.70 [facility] Platelet Estimate Decreased Normal [facility] Platelet Morphology Comment Normal Normal [facility] Protein Electrophoresis M-Anselmo Not observed g/dL Not Observed [facility] Protein Electrophoresis Note See comment . [facility] Comment on above: Protein electrophore sis scan will follow via computer,mail, or technical documentation specialist delivery. Serum Immunofixation See comment . [facility] Comment on above: No monoclonality det ected. Platelet mean volume Auto (B ld) [Entitic vol]Ordered By: Brook Huddleston on 04-30-2022 Platelet mean volume (Bld) [Entitic vol] 8.8 fL 6.6-10.1 [facility] Platelet poor plasma interna tional normalized ratio (INR) by coagulation assay (relatOrdered By: Brook Huddleston on 04-30-2022 INR Coag (PPP) [Relative time] 1.0 {INR} [facility] Comment on above: INR Therapeutic Rang e [...] 04-30-2022 Platelets (Bld) [#/Vol] 119 10*3/uL 150-450 [facility] Protein [Mass/volume] in Ser um or PlasmaOrdered By: Brook Huddleston on 04-30-2022 Protein [Mass/Vol] 6.2 g/dL 6.1-7.9 [facility] Protein [Mass/Vol] 6.4 g/dL 6.0-8.5 [facility] Protein [Mass/volume] in Uri neOrdered By: Brook Huddleston on 04-30-2022 Protein (U) [Mass/Vol] 12.1 mg/dL Not Estab. Fi [facility] Protein.monoclonal/Protein.t otal in 24 hour Urine by ElectrophoresisOrdered By: Brook Huddleston on 04-30-2022 Protein.monoclonal Elph (24H U) [Mass fraction] Not observed % Not Observed [facility] RBC Auto (Bld) [#/Vol]Ordere d By: Brook Huddleston on 04-30-2022 RBC (Bld) [#/Vol] 2.80 10*6/uL 3.90-5.60 [facility] RBC morphologyOrdered By: Am y Flaquito on 04-30-2022 RBC morphology finding Nom (Bld) N/A [facility] Serum globulin measurement b y calculation (mass/volume)Ordered By: Brook Huddleston on 04-30-2022 Globulin (S) [Mass/Vol] 2.7 g/dL 2.2-3.9 [facility] Serum or plasma alanine etienne otransferase measurement without P-5'-P (enzymatic activiOrdered By: Brook Huddleston on 04-30-2022 ALT No additional P-5'-P [Catalytic activity/Vol] 29 U/L 10-60 [facility] Serum or plasma albumin/glob ulin mass ratioOrdered By: Brook Huddleston on 04-30-2022 Albumin/Globulin [Mass ratio] 1.3 {ratio} [facility] Albumin/Globulin [Mass ratio] 1.4 {ratio} 0.7-1.7 [facility] Serum or plasma alkaline tammy sphatase measurement (enzymatic activity/volume)Ordered By: Brook Huddleston on 04-30-2022 ALP [Catalytic activity/Vol] 80 U/L 32-92 [facility] Serum or plasma alpha 1 glob ulin measurement by electrophoresis (mass/volume)Ordered By: Brook Huddleston on 04-30-2022 Alpha 1 globulin Elph [Mass/Vol] 0.2 g/dL 0.0-0.4 [facility] Serum or plasma alpha 2 glob ulin measurement by electrophoresis (mass/volume)Ordered By: Brook Huddleston on 04-30-2022 Alpha 2 globulin Elph [Mass/Vol] 0.7 g/dL 0.4-1.0 [facility] Serum or plasma anion gap de terminationOrdered By: Brook Huddleston on 04-30-2022 Anion gap [Moles/Vol] 14.9 mmol/L 6.0-15.0 [facility] Serum or plasma aspartate am inotransferase measurement (enzymatic activity/volume)Ordered By: Brook Huddleston on 04-30-2022 AST [Catalytic activity/Vol] 39 U/L 10-42 [facility] Serum or plasma beta globuli n measurement by electrophoresis (mass/volume)Ordered By: Brook Huddleston on 04-30-2022 Beta globulin Elph [Mass/Vol] 1.0 g/dL 0.7-1.3 [facility] Serum or plasma calcium reese urement (mass/volume)Ordered By: Brook Huddleston on 04-30-2022 Calcium [Mass/Vol] 9.5 mg/dL 8.2-10.2 [facility] Serum or plasma chloride gurdeep surement (moles/volume)Ordered By: Brook Huddleston on 04-30-2022 Chloride [Moles/Vol] 102 mmol/L 95-114 [facility] Serum or plasma gamma globul in measurement by electrophoresis (mass/volume)Ordered By: Brook Huddleston on 04-30-2022 Gamma globulin Elph [Mass/Vol] 0.8 g/dL 0.4-1.8 [facility] Serum or plasma glucose reese urement (mass/volume)Ordered By: Brook Huddleston on 04-30-2022 Glucose [Mass/Vol] 262 mg/dL 70-100 [facility] Comment on above: ADA recommended refe [...] on 04-30-2022 Potassium [Moles/Vol] 4.3 mmol/L 3.5-5.1 [facility] Serum or plasma sodium measu rement (moles/volume)Ordered By: Brook Huddleston on 04-30-2022 Sodium [Moles/Vol] 135 mmol/L 136-146 [facility] Serum or plasma total biliru bin measurement (mass/volume)Ordered By: Brook Huddleston on 04-30-2022 Bilirubin [Mass/Vol] 0.8 mg/dL 0.3-1.2 [facility] Serum or plasma total carbon dioxide measurement (moles/volume)Ordered By: Brook Huddleston on 04-30-2022 CO2 [Moles/Vol] 22.4 mmol/L 22.0-30.0 [facility] Serum or plasma urea nitroge n measurement (mass/volume)Ordered By: Brook Huddleston on 04-30-2022 Urea nitrogen [Mass/Vol] 18 mg/dL 9- [facility] Teardrop cell detectionOrder ed By: Brook Huddleston on 04-30-2022 Dacrocytes LM Ql (Bld) Slight Fi [facility] Urine alpha 1 globulin/total protein by electrophoresisOrdered By: Brook Huddleston on 04-30-2022 Alpha 1 globulin Elph (U) [Mass fraction] 2.3 % . [facility] Urine alpha 2 globulin/total protein ratio by electrophoresisOrdered By: Brook Huddleston on 04-30-2022 Alpha 2 globulin Elph (U) [Mass fraction] 10.3 % . [facility] Urine beta globulin measurem ent by electrophoresis (mass/volume)Ordered By: Brook Huddleston on 04-30-2022 Beta globulin Elph (U) [Mass/Vol] 27.0 % . [facility] Urine culture routineOrdered By: Price Crain on 04-25-2022 Bacteria identified Cx Nom (U) No Growth 2 Days [facility] Automated erythrocytes count in urine sediment (number/area)Ordered By: Price Crain on 04-23-2022 RBC Auto (Urine sed) [#/Area] Innumerable [HPF] 0-4 [facility] Automated leukocytes count i n urine sediment (number/area)Ordered By: Price Crain on 04-23-2022 WBC Auto (Urine sed) [#/Area] Innumerable [HPF] 0-4 [facility] Bilirubin Test strip Ql (U)O rdered By: Price Crain on 04-23-2022 Bilirubin Ql (U) Negative Negative [facility] Body fluid albumin measureme nt (mass/volume)Ordered By: Price Crain on 04-23-2022 Albumin (Body fld) [Mass/Vol] 3.5 g/dL 3.2-5.5 [facility] Color Auto (U)Ordered By: Ivan Crain on 04-23-2022 Color (U) Yellow Yellow [facility] Creatinine [Mass/volume] in UrineOrdered By: Price Crain on 04-23-2022 Creatinine (U) [Mass/Vol] 120.5 mg/dL [facility] Comment on above: No reference range e stablished Creatinine and Glomerular fi ltration rate.predicted panel (S/P/Bld)Ordered By: Price Crain on 04-23-2022 Creatinine [Mass/Vol] 1.42 mg/dL 0.64-1.27 [facility] Estimated glomerular filtrat ion rate (GFR) non- AmericanOrdered By: Price Crain on 04-23-2022 GFR/1.73 sq M.predicted among non-blacks MDRD (S/P/Bld) [Vol rate/Area] 48 mL/Min [facility] Globulin Calc (S) [Mass/Vol] Ordered By: Price Crain on 04-23-2022 Globulin (S) [Mass/Vol] 2.5 g/dL [facility] Ketones Auto test strip (U) [Mass/Vol]Ordered By: Price Crain on 04-23-2022 Ketones (U) [Mass/Vol] Negative Negative [facility] Laboratory - UrinalysisOrder ed By: Price Crain on 04-23-2022 Hyaline casts LM Ql (Urine sed) None seen [LPF] 0-8 [facility] Nitrite Test strip Ql (U)Ord ered By: Price Crain on 04-23-2022 Nitrite Ql (U) Negative Negative [facility] No Panel InformationOrdered By: Price Crain on 04-23-2022 25-Hydroxy Vitamin D Total 43.1 ng/mL 30-100 [facility] Comment on above: VITAMIN D STATUS 25( [place])VITAMIN D RANGE (ng/mL) Deficient <20 Insufficient 20 to <30 Sufficient 30 to 100 Reference: Brendon Daniel, Estrella CARTER, et al. Evaluation,treatment, [...] 2010; 96(7):1911-30. Estimated GFR () 58 mL/Min [facility] Comment on above: GFR estimated refere nce range: According to KDOQI guidelines, <60 ml/min/1.73m2 is sufficient to diagnose a patient with chronic kidney disease. Pharmacy Creatinine Clearance (Chem N/A [facility] Protein Auto test strip (U) [Mass/Vol]Ordered By: Price Crain on 04-23-2022 Protein (U) [Mass/Vol] 30 mg/dL Negative [facility] Protein [Mass/volume] in Ser um or PlasmaOrdered By: Price Crain on 04-23-2022 Protein [Mass/Vol] 6.0 g/dL 6.1-7.9 [facility] Protein [Mass/volume] in Uri neOrdered By: Price Crain on 04-23-2022 Protein (U) [Mass/Vol] 34 mg/dL 0-9 [facility] Serum cryoglobulin detection Ordered By: Price Crain on 04-23-2022 Cryoglobulin Ql (S) See comment None detected [facility] Comment on above: None Detected at 72 hours This test was developed and its performance characteristics determined by [facility]. It has not been cleared or approved by the Food and Drug Administration. Performed at: [address] [id number] Director Of Manufacturing: Melchor Agrawal PhD, Phone: [phone] None Detected at 72 hoursThis test was developed and its performance characteristicsdetermined by [facility]. It has not been cleared orapproved by the Food and Drug Administration.Performed at: [address] [id number] Director: Melchor Agrawal PhD, Phone: [phone] Serum or plasma alanine etienne otransferase measurement without P-5'-P (enzymatic activiOrdered By: Price Crain on 04-23-2022 ALT No additional P-5'-P [Catalytic activity/Vol] 23 U/L 10-60 [facility] Serum or plasma albumin/glob ulin mass ratioOrdered By: Price Crain on 04-23-2022 Albumin/Globulin [Mass ratio] 1.4 {ratio} [facility] Serum or plasma alkaline tammy sphatase measurement (enzymatic activity/volume)Ordered By: Price Crain on 04-23-2022 ALP [Catalytic activity/Vol] 83 U/L 32-92 [facility] Serum or plasma anion gap de terminationOrdered By: Price Crain on 04-23-2022 Anion gap [Moles/Vol] 11.2 mmol/L 6.0-15.0 [facility] Serum or plasma aspartate am inotransferase measurement (enzymatic activity/volume)Ordered By: Price Crain on 04-23-2022 AST [Catalytic activity/Vol] 19 U/L 10-42 [facility] Serum or plasma calcium reese urement (mass/volume)Ordered By: Price Crain on 04-23-2022 Calcium [Mass/Vol] 8.9 mg/dL 8.2-10.2 [facility] Serum or plasma chloride gurdeep surement (moles/volume)Ordered By: Price Crain on 04-23-2022 Chloride [Moles/Vol] 105 mmol/L 95-114 [facility] Serum or plasma glucose reese urement (mass/volume)Ordered By: Price Crain on 04-23-2022 Glucose [Mass/Vol] 188 mg/dL 70-100 [facility] Comment on above: ADA recommended refe [...] Crain on 04-23-2022 Parathyrin.intact [Mass/Vol] 44.8 pg/mL [facility] Serum or plasma potassium me asurement (moles/volume)Ordered By: Price Crain on 04-23-2022 Potassium [Moles/Vol] 4.1 mmol/L 3.5-5.1 [facility] Serum or plasma sodium measu rement (moles/volume)Ordered By: Price Crain on 04-23-2022 Sodium [Moles/Vol] 136 mmol/L 136-146 [facility] Serum or plasma total biliru bin measurement (mass/volume)Ordered By: Price Crain on 04-23-2022 Bilirubin [Mass/Vol] 0.6 mg/dL 0.3-1.2 [facility] Serum or plasma total carbon dioxide measurement (moles/volume)Ordered By: Price Crain on 04-23-2022 CO2 [Moles/Vol] 23.9 mmol/L 22.0-30.0 [facility] Serum or plasma urea nitroge n measurement (mass/volume)Ordered By: Price Crain on 04-23-2022 Urea nitrogen [Mass/Vol] 17 mg/dL 9-23 [facility] Serum or plasma uric acid me asurement (mass/volume)Ordered By: Price Crain on 04-23-2022 Urate [Mass/Vol] 4.7 mg/dL 2.6-7.2 [facility] Specific gravity Auto test s trip (U) [Rel density]Ordered By: Price Crain on 04-23-2022 Specific gravity (U) [Rel density] 1.019 1.001-1.03 0 [facility] Squamous epithelial cells de tection in urine sediment by light microscopyOrdered By: Price Crain on 04-23-2022 Epithelial cells.squamous LM Ql (Urine sed) None seen [HPF] 0-2 [facility] Urine bacteria detection by automated methodOrdered By: Price Crain on 04-23-2022 Bacteria Auto Ql (U) None seen None Seen [facility] Urine clarity by refractomet ry automatedOrdered By: Price Crain on 04-23-2022 Clarity Refractometry automated (U) Cloudy Clear [facility] Urine glucose measurement by automated test strip (mass/volume)Ordered By: Price Crain on 04-23-2022 Glucose Auto test strip (U) [Mass/Vol] 500 mg/dL Normal [facility] Urine hemoglobin detection b y automated test stripOrdered By: Price Crain on 04-23-2022 Hemoglobin Auto test strip Ql (U) 3+ Negative [facility] Urine leukocyte esterase det ection by automated test stripOrdered By: Price Crain on 04-23-2022 Leukocyte esterase Auto test strip Ql (U) 3+ Negative [facility] Urine protein/creatinine rat ioOrdered By: Price Crain on 04-23-2022 Protein/Creatinine (U) [Ratio] 282 mg/g{Cre} 0-200 [facility] Urobilinogen Auto test strip (U) [Mass/Vol]Ordered By: Price Crain on 04-23-2022 Urobilinogen (U) [Mass/Vol] Normal mg/dL Normal [facility] pH Auto test strip (U)Ordere d By: Price Crain on 04-23-2022 pH (U) 5.5 [pH] 5.0-9.0 [facility] URINALYSISOrdered By: Jason moore on 04-18-2022 Bilirubin Ql (U) Negative (04/18/22 2:19 PM) Normal Negative [facility] UA Auto SS Clarity (U) SL CLOUDY Invalid Interpretation Code [facility] UA Auto SS Color (U) STRAW Invalid Interpretation Code [facility] UA Auto SS Epithelial cells.squamous LM.HPF (Urine sed) [#/Area] 0-2 /HPF Normal 0-2/HPF [facility] UA Auto SS Glucose Test strip (U) [Mass/Vol] 3+ *ABN* (04/18/22 2:19 PM) Invalid Interpretation Code Negative [facility] UA Auto SS Hemoglobin Ql (U) 1+ *ABN* (04/18/22 2:19 PM) Invalid Interpretation Code Negative [facility] UA Auto SS Ketones (U) [Mass/Vol] Negative (04/18/22 2:19 PM) Normal Negative [facility] UA Auto SS Paulding.plasma/Paulding. RBC (Bld) [Mass ratio] 0-3 /HPF Normal [...] Desc Clean Catch (04/18/22 2:19 PM) Normal [facility] UA Auto SS Urobilinogen Qn (U) [id number] {Caroline'U}/dL Normal 0.0 - 1.0 EU/dL [facility] UA Auto SS WBC Auto Ql (U) Trace *ABN* (04/18/22 2:19 PM) Invalid Interpretation Code Negative [facility] UA Auto SS WBC LM.HPF (Urine sed) [#/Area] 6-15 /HPF Invalid Interpretation Code 0-5/HPF [facility] UA Auto SS Urine culture routineOrdered By: Helen Heath on 03-26-2022 Bacteria identified Cx Nom (U) No Growth 2 Days [facility] Basophils Auto (Bld) [#/Vol] Ordered By: Brook Huddleston on 03-20-2022 Basophils (Bld) [#/Vol] 0.0 10*3/uL 0.0-0.2 [facility] Basophils/100 WBC Auto (Bld) Ordered By: Brook Huddleston on 03-20-2022 Basophils/100 WBC (Bld) 0.8 % . [facility] Blood anisocytosis detection Ordered By: Brook Huddleston on 03-20-2022 Anisocytosis Ql (Bld) Marked [facility] Blood hemoglobin measurement (mass/volume)Ordered By: Brook Huddleston on 03-20-2022 Hemoglobin (Bld) [Mass/Vol] 8.8 g/dL 13.0-17.0 [facility] Blood leukocytes automated c ount (number/volume)Ordered By: Brook Huddleston on 03-20-2022 WBC (Bld) [#/Vol] 3.6 10*3/uL 4.5-11.0 [facility] Eosinophils Auto (Bld) [#/Vo l]Ordered By: Brook Huddleston on 03-20-2022 Eosinophils (Bld) [#/Vol] 0.4 10*3/uL 0.0-0.45 [facility] Eosinophils/100 WBC Auto (Bl d)Ordered By: Brook Huddleston on 03-20-2022 Eosinophils/100 WBC (Bld) 11.5 % . [facility] Erythrocyte distribution wid th Auto (RBC) [Ratio]Ordered By: Brook Huddleston on 03-20-2022 Erythrocyte distribution width (RBC) [Ratio] 24.1 % 12.0-14.8 [facility] Hematocrit Auto (Bld) [Volum e fraction]Ordered By: Brook Huddleston on 03-20-2022 Hematocrit (Bld) [Volume fraction] 26.0 % 38.8-50.0 [facility] - Hematology and Cell countsOrdered By: Brook Huddleston on 03-20-2022 Nucleated RBC/100 WBC (Bld) [Ratio] 0.0 % 0-0.5 [facility] Lymphocytes Auto (Bld) [#/Vo l]Ordered By: Brook Huddleston on 03-20-2022 Lymphocytes (Bld) [#/Vol] 0.7 10*3/uL 1.00-4.8 [facility] Lymphocytes/100 WBC Auto (Bl d)Ordered By: Brook Huddleston on 03-20-2022 Lymphocytes/100 WBC (Bld) 19.8 % . [facility] MCH Auto (RBC) [Entitic mass ]Ordered By: Brook Huddleston on 03-20-2022 MCH (RBC) [Entitic mass] 37.9 pg 27.5-35.2 [facility] MCHC Auto (RBC) [Mass/Vol]Or dered By: Brook Huddleston on 03-20-2022 MCHC (RBC) [Mass/Vol] 33.9 g/dL 32.5-35.6 [facility] MCV Auto (RBC) [Entitic vol] Ordered By: Brook Huddleston on 03-20-2022 MCV (RBC) [Entitic vol] 111.8 fL 83.5-101 [facility] Macrocytes detectionOrdered By: Brook Huddleston on 03-20-2022 Macrocytes Ql (Bld) Moderate [facility] Monocytes Auto (Bld) [#/Vol] Ordered By: Brook Huddleston on 03-20-2022 Monocytes (Bld) [#/Vol] 0.3 10*3/uL 0.0-0.8 [facility] Monocytes/100 WBC Auto (Bld) Ordered By: Brook Huddleston on 03-20-2022 Monocytes/100 WBC (Bld) 9.2 % . [facility] Neutrophils Auto (Bld) [#/Vo l]Ordered By: Brook Huddleston on 03-20-2022 Neutrophils (Bld) [#/Vol] 2.1 10*3/uL 1.8-7.7 [facility] Neutrophils/100 WBC Auto (Bl d)Ordered By: Brook Huddleston on 03-20-2022 Neutrophils/100 WBC (Bld) 58.7 % . [facility] No Panel InformationOrdered By: Brook Huddleston on 03-20-2022 Platelet Estimate Decreased Normal [facility] Platelet Morphology Comment Normal Normal [facility] Poikilocytosis Slight [facility] Schistocytes Rare [facility] Ovalocyte detectionOrdered B y: Brook Huddleston on 03-20-2022 Ovalocytes LM Ql (Bld) [facility] Platelet mean volume Auto (B ld) [Entitic vol]Ordered By: Brook Huddleston on 03-20-2022 Platelet mean volume (Bld) [Entitic vol] 9.0 fL 6.6-10.1 [facility] Platelets Auto (Bld) [#/Vol] Ordered By: Brook Huddleston on 03-20-2022 Platelets (Bld) [#/Vol] 98 10*3/uL 150-450 [facility] RBC Auto (Bld) [#/Vol]Ordere d By: Brook Flaquito on 03-20-2022 RBC (Bld) [#/Vol] 2.32 10*6/uL 3.90-5.60 [facility] RBC morphologyOrdered By: Black safia Flaquito on 03-20-2022 RBC morphology finding Nom (Bld) N/A [facility] Hypochromia detectionOrdered By: Brook Huddleston on 03-03-2022 Hypochromia Ql (Bld) Slight [facility] Hypochromia Ql (Bld) Hypochromia detection [facility] Blood polychromasia detectio n by light microscopyOrdered By: Rosie hCew on 01-23-2022 Polychromasia LM Ql (Bld) Slight [facility] POINT OF CARE GLUCOSEon 05- Glucose [Mass/Vol] 190 mg/dL Critically high 74-106 T [facility] Comment on above: Performed By: #### P OCGLUC #### [facility] [address] [address] [address] Lydia Merritt XR KUB 1 VIEWon [...] CHAD BURNETTE Date: 2022-01-14 11:58 Normal [facility] CBC AUTO DIFFon 01-09-2022 BASO # 0.0 103/ul Normal 0.0-0.1 [facility] Comment on above: Performed By: #### P TT, PT #### [facility] [address] [place] [address] Dr. Lydia Merritt Basophils/100 WBC (Bld) 0.3 % Normal 0.2-2.0 [facility] Comment on above: Performed By: #### P TT, PT #### [facility] [address] [place] [address] Dr. Lydia Merritt EO # 0.3 103/ul Normal 0.0-0.7 [facility] Comment on above: Performed By: #### P TT, PT #### [facility] [address] [place] [address] Dr. Lydia Merritt Eosinophils/100 WBC (Bld) 8.6 % Critically high 0.9-7.0 [facility] Comment on above: Performed By: #### P TT, PT #### [facility] [address] [place] [address] Dr. Lydia Merritt Erythrocyte distribution width (RBC) [Ratio] 18.3 % Critically high 11.0-15.0 [facility] Comment on above: Performed By: #### P TT, PT #### [facility] [address] [place] [address] Dr. Lydia Merritt Hematocrit (Bld) [Volume fraction] 22.1 % Critically low 42.0-54.0 [facility] Comment on above: Result Comment: test repeated critical value verified Performed By: #### P TT, PT #### [facility] [address] [place] [address] Dr. Lydia Merritt Hemoglobin (Bld) [Mass/Vol] 7.4 g/dL Critically low 14.0-18.0 [facility] Comment on above: Performed By: #### P TT, PT #### [facility] [address] [place] [address] Dr. Lydia Merritt IG # 0.02 10e3/ul Normal 0.00-0.03 [facility] Comment on above: Performed By: #### P TT, PT #### [facility] [address] [place] [address] Dr. Lydia Merritt IG % 0.5 % Normal 0.0-0.5 [facility] Comment on above: Performed By: #### P TT, PT #### [facility] [address] [address] [address] Lydia Merritt LYMPH # 0.8 103/ul Critically low 1.2-3.8 [facility] Comment on above: Performed By: #### P TT, PT #### [facility] [address] [address] [address] Lydia Merritt Lymphocytes/100 WBC (Bld) 21.2 % Normal 20.5-60.0 [facility] Comment on above: Performed By: #### P TT, PT #### [facility] [address] [address] [address] Lydia Merritt MANUAL DIFF REQ NO Normal [facility] Comment on above: Performed By: #### P TT, PT #### [facility] [address] [place] [address] Dr. Lydia Merritt MCH (RBC) [Entitic mass] 37.2 pg Critically high 25.9-34.0 [facility] Comment on above: Performed By: #### P TT, PT #### [facility] [address] [address] [address] Lydia Merritt MCHC (RBC) [Mass/Vol] 33.5 g/dL Normal 29.9-35.2 [facility] Comment on above: Performed By: #### P TT, PT #### [facility] [address] [place] [address] Dr. Lydia Merritt MCV (RBC) [Entitic vol] 111.1 fL Critically high 80.0-94 .0 [facility] Comment on above: Performed By: #### P TT, PT #### [facility] [address] [address] [address] Lydia Merritt MONO # 0.2 103/ul Critically low 0.3-0.8 [facility] Comment on above: Performed By: #### P TT, PT #### [facility] [address] [address] [address] Lydia Merritt Monocytes/100 WBC (Bld) 6.5 % Normal 1.7-12.0 [facility] Comment on above: Performed By: #### P TT, PT #### [facility] [address] [place] [address] Dr. Lydia Merritt NEUT # 2.3 103/ul Normal 1.4-6.5 [facility] Comment on above: Performed By: #### P TT, PT #### [facility] [address] [place] [address] Dr. Lydia Merritt Neutrophils/100 WBC (Bld) 62.9 % Normal 43.0-75.0 [facility] Comment on above: Performed By: #### P TT, PT #### [facility] [address] [place] [address] Dr. Lydia Merritt Platelet mean volume (Bld) [Entitic vol] 11.1 fL Normal 9.5-13.5 [facility] Comment on above: Performed By: #### P TT, PT #### [facility] [address] [place] [address] Dr. Lydia Merritt PLT 89 103/ul Critically low 150-450 [facility] Comment on above: Performed By: #### P TT, PT #### [facility] [address] [place] [address] Dr. Lydia Merritt RBC 1.99 106/ul Critically low 4.70-6.10 [facility] Comment on above: Performed By: #### P TT, PT #### [facility] [address] [place] [address] Dr. Lydia Merritt WBC 3.7 103/ul Critically low 4.0-11.0 [facility] Comment on above: Performed By: #### P TT, PT #### [facility] [address] [place] [address] Dr. Lydia Merritt PROF CHEM 8 (BAS METB)on Anion gap [Moles/Vol] 12.4 mmol/L Normal Th [facility] Comment on above: Performed By: #### B MP #### [facility] [address] [place] [address] Dr. Lydia Merritt Calcium [Mass/Vol] 9.0 mg/dL Normal 8.5-10.1 [facility] Comment on above: Performed By: #### B MP #### [facility] [address] [address] [address] Lydia Merritt Chloride [Moles/Vol] 105 mmol/L Normal 98-107 [facility] Comment on above: Performed By: #### B MP #### [facility] [address] [place] [address] Dr. Lydia Merritt CO2 [Moles/Vol] 23.8 mmol/L Normal 21.0-32.0 [facility] Comment on above: Performed By: #### B MP #### [facility] [address] [place] [address] Dr. Lydia Merritt Creatinine [Mass/Vol] 1.41 mg/dL Critically high 0.70-1.30 [facility] Comment on above: Performed By: #### B MP #### [facility] [address] [place] [address] Dr. Lydia Merritt EGFR-AF MONGOLIAN 59 mL/min/1.73m2 Critically low >=60 [facility] Comment on above: Performed By: #### B MP #### [facility] [address] [place] [address] Dr. Lydia Merritt EGFR-NON AF MONGOLIAN 49 mL/min/1.73m2 Critically low >=60 [facility] Comment on above: Performed By: #### B MP #### [facility] [address] [address] [address] Lydia Merritt Glucose [Mass/Vol] 176 mg/dL Critically high 74-106 [facility] Comment on above: Performed By: #### B MP #### [facility] [address] [address] [address] Lydia Merritt Potassium [Moles/Vol] 4.2 mmol/L Normal 3.5-5.1 [facility] Comment on above: Performed By: #### B MP #### [facility] [address] [place] [address] Dr. Lydia Merritt Sodium [Moles/Vol] 137 mmol/L Normal 136-145 [facility] Comment on above: Performed By: #### B MP #### [facility] [address] [place] [address] Dr. Lydia Merritt Urea nitrogen [Mass/Vol] 14.0 mg/dL Normal 7.0-18.0 [facility] Comment on above: Performed By: #### B MP #### [facility] [address] [place] [address] Dr. Lydia Merritt Urea nitrogen/Creatinine [Mass ratio] 9.9 mg/mg Normal [facility] Comment on above: Performed By: #### B MP #### [facility] [address] [place] [address] Dr. Lydia Merritt PROTIMEon 01-09-2022 INR Coag (PPP) [Relative time] 0.97 {INR} Normal [facility] Comment on above: Performed By: #### P TT, PT #### [facility] [address] [place] [address] Dr. Lydia Merritt INR GUIDELINES SEE BELOW Normal [facility] Comment on above: Result Comment: DILLON RED INR: 2.0 - 3.0 CONDITIONS NOT LISTED BELOW 2.5 - 3.5 FOR PROSTHETIC HEART VALVE REPLACEMENT 2.5 - 3.5 RECURRENT THROMBOSIS Performed By: #### P TT, PT #### [facility] [address] [place] [address] Dr. Lydia Merritt PT Coag (PPP) [Time] 10.5 s Normal 9.0-11.6 [facility] Comment on above: Performed By: #### P TT, PT #### [facility] [address] [place] [address] Dr. Lydia Merritt PTTon 01-09-2022 aPTT Coag (Bld) [Time] 29.5 s Normal 22.3-36.2 Th [facility] Comment on above: Performed By: #### P TT, PT #### [facility] [address] [place] [address] Dr. Lydia Merritt Serum or plasma erythropoiet in (EPO) measurement (units/volume)Ordered By: Brook Huddleston on 01-02-2022 Erythropoietin (EPO) Qn 547.7 mIU/mL 2.6-18.5 [facility] Comment on above: [employer] el DxI 800 Immunoassay System Values obtained with different assay methods or kits cannot be used interchangeably. Results cannot be interpreted as absolute evidence of the presence or absence of malignant disease. Performed at: [address] [id number] Director Of Manufacturing: Melchor Agrawal PhD, Phone: [phone] [employer]xI 800 Immunoassay SystemValues obtained with different assay methods or kits cannotbe used interchangeably. Results cannot be interpreted asabsolute evidence of the presence or absence of malignantdisease.Performed at: [facility] [employer] [id number] Director: Melchor Agrawal PhD, Phone: [phone] Albumin [Mass/volume] in Ser um or PlasmaOrdered By: Brook Huddleston on 12-26-2021 Albumin [Mass/Vol] 2.9 g/dL 3.2-5.5 [facility] Albumin [Mass/Vol] 2.8 g/dL 2.9-4.4 [facility] Albumin/Protein.total in 24 hour Urine by ElectrophoresisOrdered By: Brook Huddleston on 12-26-2021 Albumin Elph (24H U) [Mass fraction] 35.4 % . [facility] CT biopsyOrdered By: Brook Gomez se on 12-26-2021 Transferrin [Mass/Vol] 101 mg/dL 180-380 [facility] Creatinine and Glomerular fi ltration rate.predicted panel (S/P/Bld)Ordered By: Brook Huddleston on 12-26-2021 Creatinine [Mass/Vol] 1.47 mg/dL 0.64-1.27 [facility] Estimated glomerular filtrat ion rate (GFR) non- AmericanOrdered By: Brook Huddleston on 12-26-2021 GFR/1.73 sq M.predicted among non-blacks MDRD (S/P/Bld) [Vol rate/Area] 47 mL/Min [facility] Ferritin [Mass/volume] in Se rum or PlasmaOrdered By: Brook Huddleston on 12-26-2021 Ferritin [Mass/Vol] 663.4 ng/mL 23.9-336.2 [facility] Gamma globulin/Protein.total in 24 hour Urine by ElectrophoresisOrdered By: Brook Huddleston on 12-26-2021 Gamma globulin Elph (24H U) [Mass fraction] 21.5 % . [facility] Globulin Calc (S) [Mass/Vol] Ordered By: Brook Huddleston on 12-26-2021 Globulin (S) [Mass/Vol] 3.5 g/dL F [facility] IgA [Mass/volume] in Serum o r PlasmaOrdered By: Brook Huddleston on 12-26-2021 IgA [Mass/Vol] 250 mg/dL 61-437 [facility] IgG [Mass/volume] in Serum o r PlasmaOrdered By: Brook Huddleston on 12-26-2021 IgG [Mass/Vol] 944 mg/dL 603-1613 [facility] IgM [Mass/volume] in Serum o r PlasmaOrdered By: Brook Huddleston on 12-26-2021 IgM [Mass/Vol] 33 mg/dL 15-143 [facility] Comment on above: Performed at: [facility] [address] [id number] Director Of Manufacturing: Melchor Agrawal PhD, Phone: [phone] Performed at: [facility] [address] [id number] Director: Melchor Agrawal PhD, Phone: [phone] Immunofixation for UrineOrde red By: Brook Huddleston on 12-26-2021 Interpretation Immunofixation (U) [Interp] See comment . [facility] Comment on above: No monoclonality det ected. Performed at: [facility] [address] [id number] Director Of Manufacturing: Melchor Agrawal PhD, Phone: [phone] No monoclonality det ected.Performed at: [facility] [address] [id number] Director: Melchor Agrawal PhD, Phone: [phone] Immunoglobulin light chains. kappa.free [Mass/volume] in SerumOrdered By: Brook Huddleston on 12-26-2021 Immunoglobulin light chains.kappa.free (S) [Mass/Vol] 38.9 mg/L 3.3-19.4 [facility] Immunoglobulin light chains. kappa.free/Immunoglobulin light chains.lambda.free [MassOrdered By: Brook Huddleston on 12-26-2021 Immunoglobulin light chains.kappa.free/Immun oglobulin light chains.lambda.free (S) [Mass ratio] 1.31 0.26-1.65 [facility] Comment on above: Performed at: [facility] [employer] [address] [id number] Director Of Manufacturing: Melchor Agrawal PhD, Phone: [phone] Performed at: [facility] [address] [id number] Director: Melchor Agrawal PhD, Phone: [phone] Immunoglobulin light chains. lambda.free [Mass/volume] in Serum or PlasmaOrdered By: Brook Huddleston on 12-26-2021 Immunoglobulin light chains.lambda.free [Mass/Vol] 29.7 mg/L 5.7-26.3 [facility] Iron [Mass/volume] in Serum or PlasmaOrdered By: Brook Huddleston on 12-26-2021 Iron [Mass/Vol] 102 ug/dL 40-160 [facility] Iron binding capacity [Mass/ volume] in Serum or PlasmaOrdered By: Brook Huddleston on 12-26-2021 Iron binding capacity [Mass/Vol] 141 ug/dL 255-450 [facility] Iron saturation [Mass Fracti on] in Serum or PlasmaOrdered By: Brook Huddleston on 12-26-2021 Iron saturation [Mass fraction] 72.0 % 20-50 [facility] No Panel InformationOrdered By: Brook Huddleston on 12-26-2021 Estimated GFR () 56 mL/Min [facility] Comment on above: GFR estimated refere nce range: According to KDOQI guidelines, <60 ml/min/1.73m2 is sufficient to diagnose a patient with chronic kidney disease. Pharmacy Creatinine Clearance (Chem 47.88 [facility] Protein Electrophoresis M-Anselmo Not observed g/dL Not Observed [facility] Protein Electrophoresis Note See comment . [facility] Comment on above: Protein electrophore sis scan will follow via computer, mail, or technical documentation specialist delivery. Performed at: [address] [id number] Director Of Manufacturing: Melchor Agrawal PhD, Phone: [phone] Protein electrophore sis scan will follow via computer,mail, or technical documentation specialist delivery.Performed at: [address] [id number] Director: Melchor Agrawal PhD, Phone: [phone] Serum Immunofixation See comment . [facility] Comment on above: No monoclonality det ected. Urine Random Prot Electrophor Note See comment . [facility] Comment on above: Protein electrophore sis scan will follow via computer, mail, or technical documentation specialist delivery. Protein electrophore sis scan will follow via computer,mail, or technical documentation specialist delivery. Protein [Mass/volume] in Ser um or PlasmaOrdered By: Brook Huddleston on 12-26-2021 Protein [Mass/Vol] 6.4 g/dL 6.1-7.9 [facility] Protein [Mass/Vol] 6.0 g/dL 6.0-8.5 [facility] Protein [Mass/volume] in Uri neOrdered By: Brook Huddleston on 12-26-2021 Protein (U) [Mass/Vol] 45.3 mg/dL Not Estab. [facility] Protein.monoclonal/Protein.t otal in 24 hour Urine by ElectrophoresisOrdered By: Brook Huddleston on 12-26-2021 Protein.monoclonal Elph (24H U) [Mass fraction] Comment: % Not Observed [facility] Comment on above: UPE shows asymmetric al gamma. Serum globulin measurement ( mass/volume)Ordered By: Brook Huddleston on 12-26-2021 Globulin (S) [Mass/Vol] 3.2 g/dL 2.2-3.9 [facility] Serum or plasma alanine etienne otransferase measurement without P-5'-P (enzymatic activiOrdered By: Brook Huddleston on 12-26-2021 ALT No additional P-5'-P [Catalytic activity/Vol] 30 U/L 10-60 [facility] Serum or plasma albumin/glob ulin mass ratioOrdered By: Brook Huddleston on 12-26-2021 Albumin/Globulin [Mass ratio] 0.8 {ratio} [facility] Albumin/Globulin [Mass ratio] 0.9 {ratio} 0.7-1.7 [facility] Serum or plasma alkaline tammy sphatase measurement (enzymatic activity/volume)Ordered By: Brook Huddleston on 12-26-2021 ALP [Catalytic activity/Vol] 112 U/L 32-92 [facility] Serum or plasma alpha 1 glob ulin measurement by electrophoresis (mass/volume)Ordered By: Brook Huddleston on 12-26-2021 Alpha 1 globulin Elph [Mass/Vol] 0.5 g/dL 0.0-0.4 [facility] Serum or plasma alpha 2 glob ulin measurement by electrophoresis (mass/volume)Ordered By: Brook Huddleston on 12-26-2021 Alpha 2 globulin Elph [Mass/Vol] 1.0 g/dL 0.4-1.0 [facility] Serum or plasma aspartate am inotransferase measurement (enzymatic activity/volume)Ordered By: Brook Huddleston on 12-26-2021 AST [Catalytic activity/Vol] 23 U/L 10-42 [facility] Serum or plasma beta globuli n measurement by electrophoresis (mass/volume)Ordered By: Brook Huddleston on 12-26-2021 Beta globulin Elph [Mass/Vol] 0.9 g/dL 0.7-1.3 [facility] Serum or plasma calcium reese urement (mass/volume)Ordered By: Brook Huddleston on 12-26-2021 Calcium [Mass/Vol] 9.0 mg/dL 8.2-10.2 [facility] Serum or plasma chloride gurdeep surement (moles/volume)Ordered By: Brook Huddleston on 12-26-2021 Chloride [Moles/Vol] 103 mmol/L 95-114 [facility] Serum or plasma gamma globul in measurement by electrophoresis (mass/volume)Ordered By: Brook Huddleston on 12-26-2021 Gamma globulin Elph [Mass/Vol] 0.9 g/dL 0.4-1.8 [facility] Serum or plasma glucose reese urement (mass/volume)Ordered By: Brook Huddleston on 12-26-2021 Glucose [Mass/Vol] 84 mg/dL 70-100 [facility] Comment on above: ADA recommended refe [...] on 12-26-2021 Homocysteine [Moles/Vol] 17.5 umol/L 0.0-19.2 [facility] Comment on above: Performed at: [facility] [address] [id number] Director Of Manufacturing: Melchor Agrawal PhD, Phone: [phone] Performed at: [facility] [address] [id number] Director: Melchor Agrawal PhD, Phone: [phone] Serum or plasma methylmalona te measurement (moles/volume)Ordered By: Brook Huddleston on 12-26-2021 Methylmalonate [Moles/Vol] 230 nmol/L 0-378 [facility] Comment on above: This test was develo ped and its performance characteristics determined by [employer]. It has not been cleared or approved by the Food and Drug Administration. Performed at: [facility] [employer] [id number] Director Of Manufacturing: Aliya Curtis MD, Phone: [phone] This test was develo ped and its performance characteristicsdetermined by [employer]. It has not been cleared orapproved by the Food and Drug Administration.Performed at: [facility] [employer] [id number] Director: Aliya Curtis MD, Phone: [phone] Serum or plasma potassium me asurement (moles/volume)Ordered By: Brook Huddleston on 12-26-2021 Potassium [Moles/Vol] 3.9 mmol/L 3.5-5.1 [facility] Serum or plasma sodium measu rement (moles/volume)Ordered By: Brook Huddleston on 12-26-2021 Sodium [Moles/Vol] 135 mmol/L 136-146 [facility] Serum or plasma total biliru bin measurement (mass/volume)Ordered By: Brook Huddleston on 12-26-2021 Bilirubin [Mass/Vol] 0.5 mg/dL 0.3-1.2 [facility] Serum or plasma total carbon dioxide measurement (moles/volume)Ordered By: Brook Huddleston on 12-26-2021 CO2 [Moles/Vol] 20.5 mmol/L 22.0-30.0 [facility] Serum or plasma urea nitroge n measurement (mass/volume)Ordered By: Brook Huddleston on 12-26-2021 Urea nitrogen [Mass/Vol] 18 mg/dL 9-23 [facility] Urine alpha 1 globulin/total protein by electrophoresisOrdered By: Brook Huddleston on 12-26-2021 Alpha 1 globulin Elph (U) [Mass fraction] 5.4 % . [facility] Urine alpha 2 globulin/total protein ratio by electrophoresisOrdered By: Brook Huddleston on 12-26-2021 Alpha 2 globulin Elph (U) [Mass fraction] 13.7 % . [facility] Urine beta globulin measurem ent by electrophoresis (mass/volume)Ordered By: Brook Huddleston on 12-26-2021 Beta globulin Elph (U) [Mass/Vol] 23.9 % . [facility] BONE MARROW CHROMOSOME RALF Natalie 12-23-2021 BONE MARROW CHROM.ANALYSIS SEE BELOW Normal [facility] Comment on above: Result Comment: G enetics test results are available electronically in [facility] and Community Record. Results will be sent on a separate report. In the AEMR, go to Community record -> click on Clinical documents -> go to Genetics Studies tab for results. Performed By: #### K NATY #### [facility] [address] [place] [address] Clinic Note - Heme Oncon Clinic Note - Heme Onc Cancer History: Treatment Synopsis: Mr Cunningham was initially referred from Dr. 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 Hospital course notable for 8 of 8 blood cultures growing MSSA, ECHO negative for vegetation. He was discharged to [facility] for physical rehab & to complete [...] Additional History Family/friend support: Employment: Retired [employer] Living arrangements: Lives with Advanced directives: Living will and DPOA on file Spirituality: Protestant PMH: DM, HTN, RINA, Sleep Apnea PSH: [...] pain Extremiti (more content not included)... Normal [facility] Clinic Note - Intakeon 12-12 Clinic Note [...] you are livingno Depression: Past 2 wks: [place]esta down, depressed or hopelessno Past 2 wks: [place] little interest/pleasure doing thingsno Any Thoughts of [...] 12-Dec-2021 10:16 by Esther Garcia (PCNA) Normal [facility] SURF MARKERS >15,PATH REVon 12-03-2021 PATH REV. >15 MARKERS ИванChayJYOTHI Normal [facility] Comment on above: Result Comment: By h er/his signature above, the Pathologist listed as making the final interpretation certifies that she/he has personally reviewed this case. Performed By: #### K ALFONSO #### [facility] [address] [place] [address] SURFACE MARKERS LOW GRADE PA NELon 12-03-2021 DIAGNOSIS SEE BELOW Normal [facility] Comment on above: Result Comment: No e vidence of plasma cell neoplasm. No definite immunophenotypic evidence of a lymphoproliferative disorder. Performed By: #### L GP #### [facility] [address] [place] [address] NK 19 % of Lymph Normal [facility] Comment on above: Performed By: #### L GP #### [facility] [address] [place] [address] NOTE SEE BELOW Normal [facility] Comment on above: Result Comment: Conchita michelle with separate surgical pathology report. Performed By: #### L GP #### [facility] [address] [place] [address] PROTEIN ELECTROPHORESIS,SERU 12-02-2021 INTERPRETATION NORMAL Normal [facility] Comment on above: Performed By: #### S PE2 #### [facility] [address] [place] [address] [facility] [address] [place] [address] SPE PATH REVIEWon 12-02-2021 PATH REVIEW-SPE YAQUELIN Normal [facility] Comment on above: Result Comment: By h er/his signature above, the Pathologist listed as making the final interpretation certifies that she/he has personally reviewed this case. Performed By: #### P R12 #### [facility] [address] [place] [address] IMMUNOGLOBULINS (G,A,M)on IgM [Mass/Vol] 27 mg/dL Low 40 - 230 [facility] Comment on above: Result Comment: MONO CLONAL PROTEINS MAY CAUSE FALSELY LOW RESULTS IN THIS ASSAY. SERUM PROTEIN ELECTROPHORESIS SHOULD BE DONE THE FIRST TEST TO EVALUATE MONOCLONAL GAMMOPATHY. Performed By: #### I GS #### [facility] [address] [place] [address] KAPPA/LAMBDA FREE LIGHT Corbin WEISS 11-29-2021 FREE KAPPA LIGHT CHAINS,S 3.92 mg/dL High 0.33 - 1.94 [facility] Comment on above: Performed By: #### K NATY #### [facility] [address] [place] [address] FREE KAPPA/LAMBDA RATIO,S 1.34 Normal 0.26 - 1.65 [facility] Comment on above: Result Comment: Unde tected [...] laboratory. Performed By: #### K ALFONSO #### [facility] [address] [place] [address] FREE LAMBDA LIGHT CHAIN,S 2.92 mg/dL High 0.57 - 2.63 [facility] Comment on above: Performed By: #### K ALFONSO #### [facility] [address] [place] [address] PROTEIN ELECTROPHORESIS,SERU 11-29-2021 Albumin [Mass/Vol] 3.6 g/dL Normal 3.4 - 5.0 [facility] Comment on above: Performed By: #### S PE2 #### [facility] [address] [place] [address] [facility] [address] [place] [address] ALPHA 1 GLOBULIN 0.3 g/dL Normal 0.2 - 0.6 [facility] Comment on above: Performed By: #### S PE2 #### [facility] [address] [place] [address] [facility] [address] [place] [address] ALPHA 2 GLOBULIN 0.6 g/dL Normal 0.4 - 1.1 [facility] Comment on above: Performed By: #### S PE2 #### [facility] [address] [place] [address] [facility] [address] [place] [address] BETA GLOBULIN 0.7 g/dL Normal 0.5 - 1.2 [facility] Comment on above: Performed By: #### S PE2 #### [facility] [address] [place] [address] [facility] [address] [place] [address] GAMMA GLOBULIN 0.9 g/dL Normal 0.5 - 1.4 [facility] Comment on above: Performed By: #### S PE2 #### [facility] [address] [place] [address] [facility] [address] [place] [address] SURFACE MARKERS LOW GRADE PA NELon 11-29-2021 CD19 1 % of Lymph Normal [facility] Comment on above: Performed By: #### L GP #### [facility] [address] [place] [address] CD4 52 % of Lymph Normal [facility] Comment on above: Performed By: #### L GP #### [facility] [address] [place] [address] CD8 28 % of Lymph Normal [facility] Comment on above: Performed By: #### L GP #### [facility] [address] [place] [address] CELL COUNT 7.56 x10E9/L Normal [facility] Comment on above: Performed By: #### L GP #### [facility] [address] [place] [address] Granulocytes/100 WBC (Bld) 49 % Normal [facility] Comment on above: Performed By: #### L GP #### [facility] [address] [place] [address] Lymphocytes/100 WBC (Bld) 9 % Normal [facility] Comment on above: Performed By: #### L GP #### [facility] [address] [place] [address] Monocytes/100 WBC (Bld) 4 % Normal [facility] Comment on above: Performed By: #### L GP #### [facility] [address] [place] [address] NUMBER OF CELLS COLLECTED 100,000 per tube Normal [facility] Comment on above: Performed By: #### L GP #### [facility] [address] [place] [address] SPECIMEN VIABILITY Acceptable Normal [facility] Comment on above: Result Comment: Flow cytometry results should be interpreted in the context of morphology. Flow cytometry findings may be unreliable due to sampling issues, differential loss or recovery of cell populations ex vivo, or low viability. Performed By: #### L GP #### [facility] [address] [place] [address] AMB - Narrative Note Nursing -BMBx Nursing Noteon 11-28-2021 AMB - Narrative Note Nursing-BMBx Nursing Note Topic and Description: Topic: BMBx Nursing Note Description: Patient arrived to ASCT unit via self-ambulation for bone marrow biopsy accompanied by . He is alert and oriented x3, denies pain or any discomfort. Vital signs obtained. Blood drawn from outpatient lab. WOOD HACKER performed procedure. After biopsy, dressing checked is clean, dry and intact. Education provided and PI sheet given. No adverse reactions, no complaints and no assistance needed. Electronic Signatures: Violetta Bundy (RN) (Signed 28-Nov-2021 11:37) Authored: Topic and Description Last Updated: 28-Nov-2021 11:37 by Violetta Bundy (RN) Normal [facility] BETA 2 MICROGLOBULINon 11-28 BETA 2 MICROGLOBULIN 3.5 mg/L High 0.7 - 2.2 [facility] Comment on above: Performed By: #### B 2MIC #### [facility] [address] [place] [address] CBC AND DIFFERENTIALon 11-28 % AUTOMATED IMMATURE GRAN 0.0 % Normal 0.0 - 0.9 [facility] Comment on above: Result Comment: Yue ture Granulocyte Count (IG) includes promyelocytes, myelocytes and metamyelocytes but does not include bands. Percent differential counts (%) should be interpreted in the context of the absolute cell counts (cells/L). Performed By: #### P R12 #### [facility] [address] [place] [address] Basophils (Bld) [#/Vol] 0.02 10*3/uL Normal 0.00 - 0.10 [facility] Comment on above: Performed By: #### P R12 #### [facility] [address] [place] [address] Basophils/100 WBC (Bld) 0.9 % Normal 0.0 - 2.0 [facility] Comment on above: Performed By: #### P R12 #### [facility] [address] [place] [address] Eosinophils (Bld) [#/Vol] 0.26 10*3/uL Normal 0.00 - 0.40 [facility] Comment on above: Performed By: #### P R12 #### [facility] [address] [place] [address] Eosinophils/100 WBC (Bld) 11.5 % Normal 0.0 - 6.0 [facility] Comment on above: Performed By: #### P R12 #### [facility] [address] [place] [address] Lymphocytes (Bld) [#/Vol] 0.58 10*3/uL Low 0.80 - 3.00 [facility] Comment on above: Performed By: #### P R12 #### [facility] [address] [place] [address] Lymphocytes/100 WBC (Bld) 25.7 % Normal 13.0 - 44.0 [facility] Comment on above: Performed By: #### P R12 #### [facility] [address] [place] [address] Monocytes (Bld) [#/Vol] 0.27 10*3/uL Normal 0.05 - 0.80 [facility] Comment on above: Performed By: #### P R12 #### [facility] [address] [place] [address] Monocytes/100 WBC (Bld) 11.9 % Normal 2.0 - 10.0 [facility] Comment on above: Performed By: #### P R12 #### [facility] [address] [place] [address] Neutrophils (Bld) [#/Vol] 1.13 10*3/uL Low 1.60 - 5.50 [facility] Comment on above: Performed By: #### P R12 #### [facility] [address] [place] [address] Neutrophils/100 WBC (Bld) 50.0 % Normal 40.0 - 80.0 [facility] Comment on above: Performed By: #### P R12 #### [facility] [address] [place] [address] Platelets (Bld) [#/Vol] 72 10*3/uL Low 150 - 450 [facility] Comment on above: Performed By: #### P R12 #### [facility] [address] [place] [address] Erythrocyte distribution width (RBC) [Ratio] 21.5 % High 11.5 - 14.5 [facility] Comment on above: Performed By: #### P R12 #### [facility] [address] [place] [address] Hematocrit (Bld) [Volume fraction] 25.3 % Low 41.0 - 52.0 [facility] Comment on above: Performed By: #### P R12 #### [facility] [address] [place] [address] Hemoglobin (Bld) [Mass/Vol] 8.6 g/dL Low 13.5 - 17.5 [facility] Comment on above: Performed By: #### P R12 #### [facility] [address] [place] [address] MCHC (RBC) [Mass/Vol] 34.0 g/dL Normal 32.0 - 36.0 [facility] Comment on above: Performed By: #### P R12 #### [facility] [address] [place] [address] MCV (RBC) [Entitic vol] 108 fL High 80 - 100 [facility] Comment on above: Performed By: #### P R12 #### [facility] [address] [place] [address] RBC 2.35 x10E12/L Low 4.50 - 5.90 [facility] Comment on above: Performed By: #### P R12 #### [facility] [address] [place] [address] WBC (Bld) [#/Vol] 2.3 10*3/uL Low 4.4 - 11.3 [facility] Comment on above: Performed By: #### P R12 #### [facility] [address] [place] [address] COMPREHENSIVE PANELon 2021 Albumin [Mass/Vol] 3.8 g/dL Normal 3.4 - 5.0 [facility] Comment on above: Performed By: #### C MP #### [facility] [address] [place] [address] ALP [Catalytic activity/Vol] 78 U/L Normal 33 - 136 [facility] Comment on above: Performed By: #### C MP #### [facility] [address] [place] [address] ALT [Catalytic activity/Vol] 18 U/L Normal 10 - 52 [facility] Comment on above: Result Comment: Gloria ents treated with Sulfasalazine may generate falsely decreased results for ALT. Performed By: #### C MP #### [facility] [address] [place] [address] Anion gap [Moles/Vol] 11 mmol/L Normal 10 - 20 [facility] Comment on above: Performed By: #### C MP #### [facility] [address] [place] [address] AST [Catalytic activity/Vol] 17 U/L Normal 9 - 39 [facility] Comment on above: Performed By: #### C MP #### [facility] [address] [place] [address] Bilirubin [Mass/Vol] 0.7 mg/dL Normal 0.0 - 1.2 [facility] Comment on above: Performed By: #### C MP #### [facility] [address] [place] [address] Calcium [Mass/Vol] 9.3 mg/dL Normal 8.6 - 10.3 [facility] Comment on above: Performed By: #### C MP #### [facility] [address] [place] [address] Chloride [Moles/Vol] 105 mmol/L Normal 98 - 107 [facility] Comment on above: Performed By: #### C MP #### [facility] [address] [place] [address] Creatinine [Mass/Vol] 1.14 mg/dL Normal 0.50 - 1.30 [facility] Comment on above: Performed By: #### C MP #### [facility] [address] [place] [address] GFR/1.73 sq M.predicted among non-blacks MDRD (S/P/Bld) [Vol rate/Area] 66 mL/min/{1.73_m2} Normal >90 [facility] Comment on above: Result Comment: CALC ULATIONS OF ESTIMATED GFR ARE PERFORMED USING THE 2020 CKD-EPI STUDY REFIT EQUATION WITHOUT THE RACE VARIABLE FOR THE IDMS-TRACEABLE CREATININE METHODS. https://jasn.asnjournals.org/content/early/ASN.2020 579941 Performed By: #### C MP #### [facility] [address] [place] [address] Glucose [Mass/Vol] 163 mg/dL High 74 - 99 [facility] Comment on above: Performed By: #### C MP #### [facility] [address] [place] [address] HCO3 (Bld) [Moles/Vol] 27 mmol/L Normal 21 - 32 [facility] Comment on above: Performed By: #### C MP #### [facility] [address] [place] [address] Potassium [Moles/Vol] 3.4 mmol/L Low 3.5 - 5.3 [facility] Comment on above: Performed By: #### C MP #### [facility] [address] [place] [address] Sodium [Moles/Vol] 140 mmol/L Normal 136 - 145 [facility] Comment on above: Performed By: #### C MP #### [facility] [address] [place] [address] Urea nitrogen [Mass/Vol] 14 mg/dL Normal 6 - 23 [facility] Comment on above: Performed By: #### C MP #### [facility] [address] [place] [address] Clinic Note - Heme Onc-Follo w Up [...] Cr in 2011), Mspike 3.6 g/dL IgG [place], total IgG was 5312, underwent HDx3 for [...] negative for vegetation. He was discharged to [facility] for physical rehab & to complete treatment with Cefazolin 2gm IV every 8 hrs through 08/20/2020. History of Present Illness: ID Statement: PATSY CUNNINGHAM is a 76 year old Male and Day of Transplant #490 Chief Complaint: Post transplant myeloma Interval History: Mr. Cunningham presents today (11/28/2021) to [facility] for follow up evaluation, labs, and bone marrow biopsy. 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 He continues to be on Revlimid 5 mg daily, Aspirin 81 mg daily. He has been following up with his local primary oncologist at [facility], Dr. Huddleston. T+490 today. Mr. Cunningham reports [...] required 2 units pRBCs on 10/31/21 at [facility]. No other transfusions since then. States over [...] months brought in by patient's (mostly from [facility]), patient's blood counts have been downtrending. On [...] Anemia: I (more content not included)... Normal [facility] Clinic Note - Intakeon 11-28 Clinic Note [...] or older Electronic Signatures: Martha Murcia (NURS LUIZ) (Signed 28-Nov-2021 09:42) Authored: Patient Visit Information, Vital Signs, Allergies, Outpatient Medication Profile, Notification, Travel History, Falls ToVioletta hodge (RN) (Signed 28-Nov-2021 11:15) Authored: Bear Co-Signer: Patient Visit Information, Vital Signs, Allergies, Outpatient Medication Profile, Notification, Travel History, Falls Last Updated: 28-Nov-2021 11:15 by Violetta BundyRN) Normal [facility] FLOW CYTOMETRY TESTon 2021 FLOW TEST ORDERED LOW GRADE PANEL Normal [facility] Comment on above: Performed By: #### F CTST #### [facility] [address] [place] [address] SOURCE BONE MARROW Normal [facility] Comment on above: Performed By: #### F CTST #### [facility] [address] [place] [address] Hold cultured cells for futu re analysison 11-28-2021 Hold cultured cells for future analysis Hold cultured cells for future analysis CYT OGENETIC REPORT: [id number] --- Patient: Patsy Cunningham Date of : 1945 Specimen: Bone Marrow Date received: 11/28/2021 Lab ID: [id number] Indication: Multiple Myeloma Report date: 12/05/2021 Test: [...] receipt. Please contact the Genetics lab at [phone] for details. Final report signed by: Chris Marshall Ph.D., FACMG, FCCMG Test performed at: [address], [place], [place] [address] FAX: [phone] Website: [email or web address] Referred by: Shan Jaramillo M.D., Ph.D. Normal [facility] IMMUNOGLOBULINS (G,A,M)on IgA [Mass/Vol] 203 mg/dL Normal 70 - 400 [facility] Comment on above: Result Comment: MONO CLONAL PROTEINS MAY CAUSE FALSELY LOW RESULTS IN THIS ASSAY. SERUM PROTEIN ELECTROPHORESIS SHOULD BE DONE THE FIRST TEST TO EVALUATE MONOCLONAL GAMMOPATHY. Performed By: #### I GS #### [facility] [address] [place] [address] IgG [Mass/Vol] 955 mg/dL Normal 700 - 1600 [facility] Comment on above: Result Comment: MONO CLONAL PROTEINS MAY CAUSE FALSELY LOW RESULTS IN THIS ASSAY. SERUM PROTEIN ELECTROPHORESIS SHOULD BE DONE THE FIRST TEST TO EVALUATE MONOCLONAL GAMMOPATHY. Performed By: #### I GS #### [facility] [address] [place] [address] LDHon 11-28-2021 LDH 150 U/L Normal 84 - 246 [facility] Comment on above: Performed By: #### L DH #### [facility] [address] [place] [address] PROTEIN ELECTROPHORESIS,SERU 11-28-2021 Protein [Mass/Vol] 6.1 g/dL Low 6.4 - 8.2 [facility] ([facility]) Comment on above: Performed By: #### S PE2 #### [facility] [address] [place] [address] [facility] [address] [place] [address] Performed By: #### C MP #### [facility] [address] [place] [address] RED CELL MORPHOLOGYon 2021 OVALOCYTES Few Normal [facility] Comment on above: Performed By: #### M ORP2 #### [facility] [address] [place] [address] POLYCHROMASIA Mild Normal [facility] Comment on above: Performed By: #### M ORP2 #### [facility] [address] [place] [address] RBC morphology finding Nom (Bld) See Below Normal [facility] Comment on above: Performed By: #### M ORP2 #### [facility] [address] [place] [id number] SURFACE MARKERS LOW GRADE PA NELon 11-28-2021 METHOD SEE BELOW Normal [facility] Comment on above: Result Comment: This test is a multicolor, whole blood lysis assay. It was developed and its performance characteristics determined by the Department of Pathology, [facility], and has not been cleared or [...] CD43, CD23, CD1c, CD25, CD180, CD11c, CD79b, [place], [place], IgD. Additional Antibodies: CD138, CD27 Performed By: #### L GP #### [facility] [address] [place] [address] SPECIMEN SITE Bone Marrow Normal [facility] Comment on above: Performed By: #### L GP #### [facility] [address] [place] [address] [facility] Surgical Pathology Depar tmenton 11-28-2021 [facility] Surgical Pathology Department Name PATSY CUNNINGHAM Pathologist: SAFIA ROE JR, MD, PhD. Date of Procedure: 11/28/2021 Date Received: 11/28/2021 Date Reported 12/03/2021 Submitting Physician: QUIQUE HALL MD Location: [facility] Other External # FINAL DIAGNOSIS A AND [...] toto in one cassette following decalcification. [facility]/11/28/2021 The assays/tests were performed with appropriate positive and negative controls which stained appropriately. [facility] Department of Pathology [address] [place] [address] Comment on above: Performed By: #### K NATY #### [facility] [place] [address] [place] [address] Lactate dehydrogenase measur ement (enzymatic activity/volume)Ordered By: Brook Huddleston on 09-16-2021 LDH (Unsp spec) [Catalytic activity/Vol] 128 U/L 45-190 [facility] Serum or plasma ggsd-2-utcgq globulin measurement (mass/volume)Ordered By: Brook Flaquito on 09-16-2021 Alxq-0-Ncnfznexaooav [Mass/Vol] 3.9 ug/mL High 0.6-2.4 [facility] Comment on above: Siemens Immulite 200 0 Immunochemiluminometric assay (ICMA) Values obtained with different assay methods or kits cannot be used interchangeably. Results cannot be interpreted as absolute evidence of the presence or absence of malignant disease. Performed at: [facility] [id number] Director Of Manufacturing: Aliya Curtis MD, Phone: [phone] Siemens Immulite 200 0 Immunochemiluminometric assay (ICMA)Values obtained with different assay methods or kits cannotbe used interchangeably. Results cannot be interpreted asabsolute evidence of the presence or absence of malignantdisease.Performed at: [facility] [id number] Director: Aliya Curtis MD, Phone: [phone] Ssgf-6-Qmxzzstplzipj [Mass/Vol] Serum or plasma rfxd-6-owcwhhpzzsdng measurement (mass/volume) High 0.6-2.4 [facility] Comment on above: Siemens Immulite 200 0 Immunochemiluminometric assay (ICMA)Values obtained with different assay methods or kits cannotbe used interchangeably. Results cannot be interpreted asabsolute evidence of the presence or absence of malignantdisease.Performed at: [facility] [id number] Director: Aliya Curtis MD, Phone: [phone] Laboratory - Microbiology an d Antimicrobial susceptibilityon 07-11-2020 SARS-CoV-2 (COVID-19) RNA ERIN+probe Ql (Unsp spec) N/A [facility] No Panel Informationon 07-11 N/A [facility] Respiratory specimen 2019 no ml coronavirus RNA detection by probe and target amplifion 07-11-2020 SARS-CoV-2 (COVID-19) RNA ERIN+probe Ql (Resp) Not detected Not Detected [facility] Comment on above: This nucleic acid am plification test was developed and its performance characteristics determined by [facility]. Nucleic acid amplification tests include PCR and [...] was developed and itsperformance characteristics determined by [facility]. Nucleic acid amplification tests include PCRand TMA. This test has not been FDA cleared or approved.This test has been authorized by FDA under an Emergency UseAuthorization (EUA). This test is only authorized forthe duration of time the declaration that circumstancesexist justifying the authorization of the emergency use ofin vitro diagnostic tests for detection of SARS-CoV-2 virusand/or diagnosis of COVID-19 infection under ecixlda840(b)(1) of the Act, 21 U.S.C. 360bbb-3(b) (1), [...] by probe and target amplifi Not Detected [facility] Comment on above: This nucleic acid am [...] SARS-CoV-2 virusand/or diagnosis of COVID-19 infection under xlluxyg059(b)(1) of the Act, 21 U.S.C. 360bbb-3(b) (1), [...] 07-02-2020 WBC (Bld) [#/Vol] 8.6 10*3/uL 4.5-11.0 [facility] No Panel Informationon 07-02 8.6 10*3/uL 4.5-11.0 [facility] Laboratory - Chemistry and C hemistry - challengeon 06-04-2020 Magnesium [Mass/Vol] 2.1 mg/dL 1.6-2.6 [facility] No Panel Informationon 04-30 Methylmalonic Acid Comment See comment . [facility] Comment on above: This test was develo ped and its performance characteristics determined by [facility]. It has not been cleared or approved by the Food and Drug Administration. Performed at: [address] [id number] Director Of Manufacturing: Aliya Curtis MD, Phone: [phone] This test was develo ped and its performance characteristicsdetermined by [facility]. It has not been cleared orapproved by the Food and Drug Administration.Performed at: - [facility] [id number] Director: Aliya Curtis MD, Phone: [phone] See comment . [facility] Cholesterol [Mass/volume] in Serum or Plasmaon 03-19-2020 Cholesterol [Mass/Vol] 113 mg/dL Low 140-200 [facility] Comment on above: Chol less than 200 m g/dl low risk Chol 201-239 mg/dl borderline risk Chol 240 mg/dl and greater high risk Chol less than 200 m g/dl low riskChol 201-239 mg/dl borderline riskChol 240 mg/dl and greater high risk Cholesterol [Mass/Vol] Cholesterol [Mass /volume] in Serum or Plasma Low 140-200 [facility] Comment on above: Chol less than 200 m g/dl low riskChol 201-239 mg/dl borderline riskChol 240 mg/dl and greater high risk Cholesterol in LDL Calc [Mas s/Vol]on 03-19-2020 Cholesterol in LDL [Mass/Vol] 59 mg/dL 0-100 [facility] Comment on above: LDL ATP III CLASSIFI [...] in Serum or Plasma by calculation 0-100 [facility] Comment on above: LDL ATP III CLASSIFI CATIONLDL less than 100 mg/dL OptimalLDL 100-129 mg/dL Near or above optimalLDL 130-159 mg/dL Borderline highLDL 160-189 mg/dL HighLDL greater than 189 mg/dL Very high Cholesterol in VLDL Calc [Ma ss/Vol]on 03-19-2020 Cholesterol in VLDL [Mass/Vol] 29 mg/dL [facility] Cholesterol in VLDL [Mass/Vol] Cholesterol in VLDL [Mass/volume] in Serum or Plasma by calculation [facility] Glucose mean value [Mass/vol ume] in Blood Estimated from glycated hemoglobinon 03-19-2020 Average glucose Estimated from glycated hemoglobin (Bld) [Mass/Vol] 140 mg/dL [facility] Average glucose Estimated from glycated hemoglobin (Bld) [Mass/Vol] Glucose mean value [Mass/volume] in Blood Estimated from glycated hemoglobin [facility] Hemoglobin A1c percentageon 03-19-2020 HbA1c (Bld) [Mass fraction] 6.5 % High 4.3-5.6 [facility] Comment on above: Increased risk for d iabetes: 5.7 - 6.4 diabetes: >6.4 glycemic control for adults with diabetes: <7.0 Increased risk for d iabetes: 5.7 - 6.4diabetes: >6.4glycemic control for adults with diabetes: <7.0 HbA1c (Bld) [Mass fraction] Hemoglobin A1c percentage High 4.3-5.6 [facility] Comment on above: Increased risk for d iabetes: 5.7 - 6.4diabetes: >6.4glycemic control for adults with diabetes: <7.0 No Panel Informationon 03-19 Prostate Specific Antigen Total 2.280 ng/mL 0.000-4.00 0 [facility] 2.280 ng/mL 0.000-4.00 0 [facility] Prostate Specific Ag Free [M ass/volume] in Serum or Plasmaon 03-19-2020 Free PSA [Mass/Vol] Prostate Specific Ag Free [Mass/volume] in Serum or Plasma [facility] Serum or plasma free prostat e specific antigen (PSA)/total PSA ratioon 03-19-2020 Free PSA/Total PSA [Mass fraction] 11.0 % [facility] Comment on above: Based on the work of Jared amaya al.DALJIT. 279(19):1542:47.1998 the percent free PSA may be used [...] free prostate specific antigen (PSA)/total PSA ratio [facility] Comment on above: Based on the work [...] (mass/volume)on 03-19-2020 Free PSA [Mass/Vol] 0.260 ng/mL [facility] Serum or plasma high density lipoprotein (HDL) cholesterol measurementon 03-19-2020 Cholesterol in HDL [Mass/Vol] 25 mg/dL [facility] Comment on above: HDL CHOL ATP-III CLA SSIFICATION Cardiovascular Risk HDL > or equal to 60 mg/dL LOW HDL < 40 mg/dL HIGH HDL CHOL ATP-III CLA SSIFICATION Cardiovascular RiskHDL > or equal to 60 mg/dL LOWHDL < 40 mg/dL HIGH Cholesterol in HDL [Mass/Vol] Serum or plasma high density lipoprotein (HDL) cholesterol measurement Low [facility] Comment on above: HDL CHOL ATP-III CLA SSIFICATION Cardiovascular RiskHDL > or equal to 60 mg/dL LOWHDL < 40 mg/dL HIGH Serum or plasma total choles terol/high density lipoprotein (HDL) cholesterol mass fauzia 03-19-2020 Cholesterol.total/Remedios sterol in HDL [Mass ratio] 4.5 {ratio} <5.0 [facility] Cholesterol.total/Remedios sterol in HDL [Mass ratio] Serum or plasma total cholesterol/high density lipoprotein (HDL) cholesterol mass rat <5.0 [facility] TSH DL <= 0.005 mIU/L Qnon 0 03-19-2020 TSH Qn 0.22 m[IU]/L Low 0.45-5.33 [facility] TSH Qn Serum or plasma thyr oid stimulating hormone (TSH) measurement by high sensitivity met Low 0.45-5.33 [facility] Thyroxine (T4) free [Mass/vo lume] in Serum or Plasmaon 03-19-2020 Free T4 [Mass/Vol] 1.18 ng/dL High 0.61-1.12 [facility] Free T4 [Mass/Vol] Thyroxine (T4) free [Mass/volume] in Serum or Plasma High 0.61-1.12 [facility] Triglyceride [Mass/volume] i n Serum or Plasmaon 03-19-2020 Triglyceride [Mass/Vol] 147 mg/dL 35-149 [facility] Comment on above: TRIG ATP [...] [Ma ss/volume] in Serum or Plasma 35-149 [facility] Comment on above: TRIG ATP III CLASSIF ICATIONTRIG less than 150 mg/dL NormalTRIG 150-199 mg/dL Borderline highTRIG 200-500 mg/dL High TRIG greater than 500 mg/dL Very highStandard traceable to the Center for Disease Conrtrol and Prevention (CDC) test method. Teardrop cell detectionon Dacrocytes LM Ql (Bld) Slight [facility] Vital Signs Date Time Vital Sign Value Performing Clinician Facility 02-08-2025 14:04-0400 Body height 177.8 cm Helen Heath MD Work Phone: [facility] 02-08-2025 14:04-0400 Body mass index (BMI) [Ratio] 29.7 kg/m2 Helen Heath MD Work Phone: [facility] 02-08-2025 14:04-0400 Body temperature 97.7 [degF] Helen Heath MD Work Phone: [facility] 02-08-2025 14:04-0400 Body weight 93.89 kg Helen Heath MD Work Phone: [facility] 02-08-2025 14:04-0400 Diastolic blood pressure 77 mm[Hg] Helen Heath MD Work Phone: [facility] 02-08-2025 14:04-0400 Heart rate 72 /min Helen Heath MD Work Phone: [facility] 02-08-2025 14:04-0400 Respiratory rate 16 /min Helen Heath MD Work Phone: [facility] 02-08-2025 14:04-0400 SaO2% (BldA) [Mass fraction] 97 % Helen Heath MD Work Phone: [facility] 02-08-2025 14:04-0400 Systolic blood pressure 131 mm[Hg] Helen Heath MD Work Phone: [facility] 01-03-2025 14:40-0400 Body height 177.8 cm Helen Heath MD Work Phone: [facility] 01-03-2025 14:40-0400 Body mass index (BMI) [Ratio] 29.2 kg/m2 Helen Heath MD Work Phone: [facility] 01-03-2025 14:40-0400 Body weight 92.53 kg Helen Heath MD Work Phone: [facility] 01-03-2025 14:40-0400 Diastolic blood pressure 62 mm[Hg] Helen Heath MD Work Phone: [facility] 01-03-2025 14:40-0400 Heart rate 74 /min Helen eHath MD Work Phone: [facility] 01-03-2025 14:40-0400 Respiratory rate 16 /min Helen Heath MD Work Phone: [facility] 01-03-2025 14:40-0400 SaO2% (BldA) [Mass fraction] 99 % Helen Heath MD Work Phone: [facility] 01-03-2025 14:40-0400 Systolic blood pressure 113 mm[Hg] Helen Heath MD Work Phone: [facility] 10-06-2024 13:03-0500 Body height 177.8 cm Helen Heath MD Work Phone: [facility] 10-06-2024 13:03-0500 Body mass index (BMI) [Ratio] 30.8 kg/m2 Helen Heath MD Work Phone: [facility] 10-06-2024 13:03-0500 Body temperature 97.3 [degF] Helen Heath MD Work Phone: [facility] 10-06-2024 13:03-0500 Body weight 97.52 kg Helen Heath MD Work Phone: [facility] 10-06-2024 13:03-0500 Diastolic blood pressure 79 mm[Hg] Helen Heath MD Work Phone: [facility] 10-06-2024 13:03-0500 Heart rate 74 /min Helen Heath MD Work Phone: [facility] 10-06-2024 13:03-0500 Respiratory rate 16 /min Helen Heath MD Work Phone: [facility] 10-06-2024 13:03-0500 SaO2% (BldA) [Mass fraction] 99 % Helen Heath MD Work Phone: [facility] 10-06-2024 13:03-0500 Systolic blood pressure 133 mm[Hg] Helen Heath MD Work Phone: [facility] 10-04-2024 15:20-0500 Body height 177.8 cm Helen Heath MD Work Phone: [facility] 10-04-2024 15:20-0500 Body mass index (BMI) [Ratio] 30.9 kg/m2 Helen Heath MD Work Phone: [facility] 10-04-2024 15:20-0500 Body weight 97.74 kg Helen Heath MD Work Phone: [facility] 10-04-2024 15:20-0500 Diastolic blood pressure 80 mm[Hg] Helen Heath MD Work Phone: [facility] 10-04-2024 15:20-0500 Heart rate 85 /min Helen Heath MD Work Phone: [facility] 10-04-2024 15:20-0500 Respiratory rate 16 /min Helen Heath MD Work Phone: [facility] 10-04-2024 15:20-0500 SaO2% (BldA) [Mass fraction] 99 % Helen Heath MD Work Phone: [facility] 10-04-2024 15:20-0500 Systolic blood pressure 123 mm[Hg] Helen Heath MD Work Phone: [facility] 08-31-2024 11:10-0500 Blood Pressure Location Orquidea Cortez [facility] 08-31-2024 11:10-0500 Diastolic blood pressure 76 mm[Hg] Orquidea Lue [facility] 08-31-2024 11:10-0500 Heart rate 82 /min Orquidea Lue [facility] 08-31-2024 11:10-0500 Respiratory rate 18 /min Orquidea Lue [facility] 08-31-2024 11:10-0500 Systolic blood pressure 139 mm[Hg] Orquidea Lue [facility] 08-09-2024 11:29-0500 Blood Pressure Location Makayla Orzech [facility] 08-09-2024 11:29-0500 Diastolic blood pressure 97 mm[Hg] Makayla Orzech [facility] 08-09-2024 11:29-0500 Heart rate 73 /min Makayla Orzech [facility] 08-09-2024 11:29-0500 Systolic blood pressure 179 mm[Hg] Makayla Orzech [facility] 08-03-2024 15:35-0500 Body height 177.8 cm Helen Heath MD Work Phone: [facility] 08-03-2024 15:35-0500 Body mass index (BMI) [Ratio] 29.7 kg/m2 Helen Heath MD Work Phone: [facility] 08-03-2024 15:35-0500 Body temperature 96.1 [degF] Helen Heath MD Work Phone: [facility] 08-03-2024 15:35-0500 Body weight 93.95 kg Helen Heath MD Work Phone: [facility] 08-03-2024 15:35-0500 Diastolic blood pressure 68 mm[Hg] Helen Heath MD Work Phone: [facility] 08-03-2024 15:35-0500 Heart rate 75 /min Helen Heath MD Work Phone: [facility] 08-03-2024 15:35-0500 Respiratory rate 16 /min Helen Heath MD Work Phone: [facility] 08-03-2024 15:35-0500 SaO2% (BldA) [Mass fraction] 99 % Helen Heath MD Work Phone: [facility] 08-03-2024 15:35-0500 Systolic blood pressure 154 mm[Hg] Helen Heath MD Work Phone: [facility] 06-29-2024 14:22-0500 Diastolic blood pressure 68 mm[Hg] Helen Heath MD Work Phone: [facility] 06-29-2024 14:22-0500 Heart rate 73 /min Helen Heath MD Work Phone: [facility] 06-29-2024 14:22-0500 SaO2% (BldA) [Mass fraction] 99 % Helen Heath MD Work Phone: [facility] 06-29-2024 14:22-0500 Systolic blood pressure 130 mm[Hg] Helen Heath MD Work Phone: [facility] 06-29-2024 14:21-0500 Body weight 95.7 kg Helen Heath MD Work Phone: [facility] 06-10-2024 11:44-0400 Blood Pressure Location Orquidea Cortez [facility] 06-10-2024 11:44-0400 Diastolic blood pressure 64 mm[Hg] Orquidea Cortez [facility] 06-10-2024 11:44-0400 Heart rate 67 /min Orquidea Lue [facility] 06-10-2024 11:44-0400 Systolic blood pressure 133 mm[Hg] Orquidea Lue [facility] 06-05-2024 13:54-0400 Body temperature 97.9 [degF] MD Helen Heath Work Phone: [facility] 06-05-2024 13:54-0400 Diastolic blood pressure 78 mm[Hg] MD Helen Heath Work Phone: [facility] 06-05-2024 13:54-0400 Heart rate 68 /min MD Helen Heath Work Phone: [facility] 06-05-2024 13:54-0400 Respiratory rate 18 /min MD Helen Heath Work Phone: [facility] 06-05-2024 13:54-0400 SaO2% (BldA) [Mass fraction] 97 % MD Helen Heath Work Phone: [facility] 06-05-2024 13:54-0400 Systolic blood pressure 113 mm[Hg] MD Helen Heath Work Phone: [facility] 06-05-2024 06:00-0400 Body weight 93 kg MD Helen Heath Work Phone: [facility] 06-04-2024 08:40-0400 Inhaled oxygen flow rate 6 L/min MD Helen Heath Work Phone: [facility] 06-03-2024 14:24-0400 Body height 177.8 cm MD Helen Heath Work Phone: [facility] 06-02-2024 19:44-0400 Body height 177.8 cm MD Helen Heath Work Phone: [facility] 06-02-2024 19:44-0400 Body temperature 97.6 [degF] MD Helen Heath Work Phone: [facility] 06-02-2024 19:44-0400 Body weight 94.7 kg MD Helen Heath Work Phone: [facility] 06-02-2024 19:44-0400 Diastolic blood pressure 69 mm[Hg] MD Helen Heath Work Phone: [facility] 06-02-2024 19:44-0400 Heart rate 80 /min MD Helen Heath Work Phone: [facility] 06-02-2024 19:44-0400 Respiratory rate 16 /min MD Helen Heath Work Phone: [facility] 06-02-2024 19:44-0400 SaO2% (BldA) [Mass fraction] 95 % MD Helen Heath Work Phone: [facility] 06-02-2024 19:44-0400 Systolic blood pressure 153 mm[Hg] MD Helen Heath Work Phone: [facility] 06-02-2024 19:32-0400 Body temperature 98 [degF] MD Helen Heath Work Phone: [facility] 06-02-2024 19:32-0400 Diastolic blood pressure 71 mm[Hg] MD Helen Heath Work Phone: [facility] 06-02-2024 19:32-0400 Heart rate 72 /min MD Helen Heath Work Phone: [facility] 06-02-2024 19:32-0400 Respiratory rate 20 /min MD Helen Heath Work Phone: [facility] 06-02-2024 19:32-0400 SaO2% (BldA) [Mass fraction] 98 % MD Helen Heath Work Phone: [facility] 06-02-2024 19:32-0400 Systolic blood pressure 149 mm[Hg] MD Helen Heath Work Phone: [facility] 06-02-2024 15:31-0400 Body height 175.26 cm MD Helen Heath Work Phone: [facility] 06-02-2024 15:31-0400 Body weight 93.6 kg MD Helen Heath Work Phone: [facility] 06-02-2024 14:33-0400 Body height 175.26 cm MD Helen Heath Work Phone: [facility] 06-02-2024 14:33-0400 Body mass index (BMI) [Ratio] 30.4 kg/m2 MD Helen Heath Work Phone: [facility] 06-02-2024 14:33-0400 Body temperature 97.9 [degF] MD Helen Heath Work Phone: [facility] 06-02-2024 14:33-0400 Body weight 93.44 kg MD Helen Heath Work Phone: [facility] 06-02-2024 14:33-0400 Diastolic blood pressure 72 mm[Hg] MD Helen Heath Work Phone: [facility] 06-02-2024 14:33-0400 Heart rate 68 /min MD Helen Heath Work Phone: [facility] 06-02-2024 14:33-0400 Respiratory rate 16 /min MD Helen Heath Work Phone: [facility] 06-02-2024 14:33-0400 SaO2% (BldA) [Mass fraction] 98 % MD Helen Heath Work Phone: [facility] 06-02-2024 14:33-0400 Systolic blood pressure 144 mm[Hg] MD Helen Heath Work Phone: [facility] 03-08-2024 13:29-0400 Body height 175.26 cm MD Helen Heath Work Phone: [facility] 03-08-2024 13:29-0400 Body mass index (BMI) [Ratio] 29.7 kg/m2 MD Helen Heath Work Phone: [facility] 03-08-2024 13:29-0400 Body temperature 96.4 [degF] MD Helen Heath Work Phone: [facility] 03-08-2024 13:29-0400 Body weight 91.22 kg MD Helen Heath Work Phone: [facility] 03-08-2024 13:29-0400 Diastolic blood pressure 72 mm[Hg] MD Helen Heath Work Phone: [facility] 03-08-2024 13:29-0400 Heart rate 82 /min MD Helen Heath Work Phone: [facility] 03-08-2024 13:29-0400 Respiratory rate 18 /min MD Helen Heath Work Phone: [facility] 03-08-2024 13:29-0400 SaO2% (BldA) [Mass fraction] 98 % MD Helen Heath Work Phone: [facility] 03-08-2024 13:29-0400 Systolic blood pressure 137 mm[Hg] MD Helen Heath Work Phone: [facility] 2024 12:57-0400 Body height 175.26 cm MD Helen Heath Work Phone: [facility] 2024 12:57-0400 Body mass index (BMI) [Ratio] 30.1 kg/m2 MD Helen Heath Work Phone: [facility] 2024 12:57-0400 Body temperature 97.8 [degF] MD Helen Heath Work Phone: [facility] 2024 12:57-0400 Body weight 92.53 kg MD Helen Heath Work Phone: [facility] 2024 12:57-0400 Diastolic blood pressure 65 mm[Hg] MD Helen Heath Work Phone: [facility] 2024 12:57-0400 Heart rate 80 /min MD Helen Heath Work Phone: [facility] 2024 12:57-0400 Respiratory rate 16 /min MD Helen Heath Work Phone: [facility] 2024 12:57-0400 SaO2% (BldA) [Mass fraction] 98 % MD Helen Heath Work Phone: [facility] 2024 12:57-0400 Systolic blood pressure 130 mm[Hg] MD Helen Heath Work Phone: [facility] 01-28-2024 10:37-0400 Body temperature 98.6 [degF] Orquidea Lue [facility] 01-28-2024 10:37-0400 Diastolic blood pressure 67 mm[Hg] Orquidea Lue [facility] 01-28-2024 10:37-0400 Heart rate 68 /min Orquidea Lue [facility] 01-28-2024 10:37-0400 Respiratory rate 16 /min Orquidea Lue [facility] 01-28-2024 10:37-0400 Systolic blood pressure 132 mm[Hg] Orquidea Lue [facility] 01-22-2024 12:00-0400 Body temperature 98.1 [degF] MD Helen Heath Work Phone: [facility] 01-22-2024 12:00-0400 Diastolic blood pressure 55 mm[Hg] MD Helen Heath Work Phone: [facility] 01-22-2024 12:00-0400 Heart rate 73 /min MD Helen Heath Work Phone: [facility] 01-22-2024 12:00-0400 Respiratory rate 16 /min MD Helen Heath Work Phone: [facility] 01-22-2024 12:00-0400 SaO2% (BldA) [Mass fraction] 96 % MD Helen Heath Work Phone: [facility] 01-22-2024 12:00-0400 Systolic blood pressure 155 mm[Hg] MD Helen Heath Work Phone: [facility] 01-22-2024 06:00-0400 Body weight 92.6 kg MD Helen Heath Work Phone: [facility] 01-21-2024 16:34-0400 Body height 177.8 cm MD Helen Heath Work Phone: [facility] 01-19-2024 18:10-0400 Diastolic blood pressure 75 mm[Hg] MD Helen Heath Work Phone: [facility] 01-19-2024 18:10-0400 Heart rate 67 /min MD Helen Heath Work Phone: [facility] 01-19-2024 18:10-0400 Respiratory rate 18 /min MD Helen Heath Work Phone: [facility] 01-19-2024 18:10-0400 SaO2% (BldA) [Mass fraction] 100 % MD Helen Heath Work Phone: [facility] 01-19-2024 18:10-0400 Systolic blood pressure 134 mm[Hg] MD Helen Heath Work Phone: [facility] 01-19-2024 13:47-0400 Body height 177.8 cm MD Helen Heath Work Phone: [facility] 01-19-2024 13:47-0400 Body temperature 97.7 [degF] MD Helen Heath Work Phone: [facility] 01-19-2024 13:47-0400 Body weight 91.2 kg MD Helen Heath Work Phone: [facility] 10-26-2023 15:19-0400 Body height 180.34 cm MD Helen Heath Work Phone: [facility] 10-26-2023 15:19-0400 Body mass index (BMI) [Ratio] 28.9 kg/m2 MD Helen Heath Work Phone: [facility] 10-26-2023 15:19-0400 Body temperature 96.1 [degF] MD Helen Heath Work Phone: [facility] 10-26-2023 15:19-0400 Body weight 94.06 kg MD Helen Heath Work Phone: [facility] 10-26-2023 15:19-0400 Diastolic blood pressure 73 mm[Hg] MD Helen Heath Work Phone: [facility] 10-26-2023 15:19-0400 Heart rate 89 /min MD Helen Heaht Work Phone: [facility] 10-26-2023 15:19-0400 Respiratory rate 18 /min MD Helen Heath Work Phone: [facility] 10-26-2023 15:19-0400 SaO2% (BldA) [Mass fraction] 97 % MD Helen Heath Work Phone: [facility] 10-26-2023 15:19-0400 Systolic blood pressure 123 mm[Hg] MD Helen Heath Work Phone: [facility] 10-01-2023 13:59-0500 Body height 180.34 cm MD Helen Heath Work Phone: [facility] 10-01-2023 13:59-0500 Body mass index (BMI) [Ratio] 29.1 kg/m2 MD Helen Heath Work Phone: [facility] 10-01-2023 13:59-0500 Body temperature 97.2 [degF] MD Helen Heath Work Phone: [facility] 10-01-2023 13:59-0500 Body weight 94.8 kg MD Helen Heath Work Phone: [facility] 10-01-2023 13:59-0500 Diastolic blood pressure 67 mm[Hg] MD Helen Heath Work Phone: [facility] 10-01-2023 13:59-0500 Heart rate 96 /min MD Helen Heath Work Phone: [facility] 10-01-2023 13:59-0500 Respiratory rate 16 /min MD Helen Heath Work Phone: [facility] 10-01-2023 13:59-0500 SaO2% (BldA) [Mass fraction] 96 % MD Helen Heath Work Phone: [facility] 10-01-2023 13:59-0500 Systolic blood pressure 118 mm[Hg] MD Helen Heath Work Phone: [facility] 07-22-2023 09:17-0500 Blood Pressure Location Orquidea Lue [facility] 07-22-2023 09:17-0500 Diastolic blood pressure 84 mm[Hg] Orquidea Lue [facility] 07-22-2023 09:17-0500 Heart rate 74 /min Orquidea Lue [facility] 07-22-2023 09:17-0500 Systolic blood pressure 128 mm[Hg] Orquidea Lue [facility] 05-28-2023 13:35-0400 Body temperature 97.8 [degF] MD Helen Heath Work Phone: [facility] 05-28-2023 13:35-0400 Body weight 97.06 kg MD Helen Heath Work Phone: [facility] 05-28-2023 13:35-0400 Diastolic blood pressure 72 mm[Hg] MD Helen Heath Work Phone: [facility] 05-28-2023 13:35-0400 Heart rate 85 /min MD Helen Heath Work Phone: [facility] 05-28-2023 13:35-0400 Respiratory rate 16 /min MD Helen Heath Work Phone: [facility] 05-28-2023 13:35-0400 SaO2% (BldA) [Mass fraction] 99 % MD Helen Heath Work Phone: [facility] 05-28-2023 13:35-0400 Systolic blood pressure 129 mm[Hg] MD Helen Heath Work Phone: [facility] 02-13-2023 08:57-0400 Blood Pressure Location Orquidea Lue [facility] 02-13-2023 08:57-0400 Diastolic blood pressure 83 mm[Hg] Orquidea Lue [facility] 02-13-2023 08:57-0400 Heart rate 67 /min Orquidea Lue [facility] 02-13-2023 08:57-0400 Systolic blood pressure 166 mm[Hg] Orquidea Lue [facility] 02-11-2023 12:28-0400 Body height 175.3 cm Pacc 2 Work Phone: [facility] 02-11-2023 12:28-0400 Body temperature 97.7 [degF] Pacc 2 Work Phone: [facility] 02-11-2023 12:28-0400 Body weight 97.98 kg Pacc 2 Work Phone: [facility] 02-11-2023 12:28-0400 Diastolic blood pressure 52 mm[Hg] Pacc 2 Work Phone: [facility] 02-11-2023 12:28-0400 Heart rate 66 /min Pacc 2 Work Phone: [facility] 02-11-2023 12:28-0400 Respiratory rate 16 /min Pacc 2 Work Phone: [facility] 02-11-2023 12:28-0400 SaO2% (BldA) [Mass fraction] 100 % Pacc 2 Work Phone: [facility] 02-11-2023 [id number]:280400 Systolic blood pressure 149 mm[Hg] Pacc 2 Work Phone: [facility] 01-22-2023 14:29-0400 Body temperature 97.8 [degF] MD Helen Heath Work Phone: [facility] 01-22-2023 14:29-0400 Body weight 109.31 kg MD Helen Heath Work Phone: [facility] 01-22-2023 14:29-0400 Diastolic blood pressure 80 mm[Hg] MD Helen Heath Work Phone: [facility] 01-22-2023 14:29-0400 Heart rate 68 /min MD Helen Heath Work Phone: [facility] 01-22-2023 14:29-0400 Respiratory rate 16 /min MD Helen Heath Work Phone: [facility] 01-22-2023 14:29-0400 SaO2% (BldA) [Mass fraction] 98 % MD Helen Heath Work Phone: [facility] 01-22-2023 14:29-0400 Systolic blood pressure 118 mm[Hg] MD Helen Heath Work Phone: [facility] 01-14-2023 14:20-0400 Body height 180.34 cm Aziz Bakhous Other [employer] Other 01-14-2023 14:20-0400 Body mass index (BMI) [Ratio] 29.31 kg/m2 Price Fords Other [employer] Other 01-14-2023 14:20-0400 Body temperature 96.4 [degF] Price Crain Other [employer] Other 01-14-2023 14:20-0400 Body weight 95.35 kg Price Crain Other [employer] Other 01-14-2023 14:20-0400 Diastolic blood pressure 79 mm[Hg] Price Fords Other [employer] Other 01-14-2023 14:20-0400 Respiratory rate 20 /min Price Crain Other [employer] Other 01-14-2023 14:20-0400 SaO2% (BldA) [Mass fraction] 98 % Price Crain Other [employer] Other 01-14-2023 14:20-0400 Systolic blood pressure 128 mm[Hg] Price Fords Other [place] [employer] Other 12-19-2022 09:14-0400 Diastolic blood pressure 85 mm[Hg] Orquidea Lue [facility] 12-19-2022 09:14-0400 Mean blood pressure 105 mm[Hg] Orquidea Lue [facility] 12-19-2022 09:14-0400 Systolic blood pressure 145 mm[Hg] Orquidea Lue [facility] 12-19-2022 08:58-0400 Blood Pressure Location Orquidea Lue [facility] 12-19-2022 08:58-0400 Diastolic blood pressure 92 mm[Hg] Orquidea Lue [facility] 12-19-2022 08:58-0400 Heart rate 81 /min Orquidea Lue [facility] 12-19-2022 08:58-0400 Systolic blood pressure 150 mm[Hg] Orquidea Lue [facility] 12-05-2022 11:12-0400 Blood Pressure Location Orquidea Lue [facility] 12-05-2022 11:12-0400 Diastolic blood pressure 68 mm[Hg] Orquidea Lue [facility] 12-05-2022 11:12-0400 Heart rate 70 /min Orquidea Lue [facility] 12-05-2022 11:12-0400 Systolic blood pressure 135 mm[Hg] Orquidea Lue [facility] 11-03-2022 12:47-0400 Blood Pressure Location Orquidea Lue [facility] 11-03-2022 12:47-0400 Diastolic blood pressure 89 mm[Hg] Orquidea Lue [facility] 11-03-2022 12:47-0400 Heart rate 77 /min Orquidea Lue [facility] 11-03-2022 12:47-0400 Systolic blood pressure 165 mm[Hg] Orquidea Lue [facility] 10-16-2022 10:26-0500 Blood Pressure Location Orquidea Lue [facility] 10-16-2022 10:26-0500 Diastolic blood pressure 70 mm[Hg] Orquidea Lue [facility] 10-16-2022 10:26-0500 Heart rate 82 /min Orquidea Lue [facility] 10-16-2022 10:26-0500 Respiratory rate 16 /min Orquidea Lue [facility] 10-16-2022 10:26-0500 Systolic blood pressure 141 mm[Hg] Orquidea Lue [facility] 09-03-2022 08:47-0500 Body temperature 97.9 [degF] MD Helen Heath Work Phone: [facility] 09-03-2022 08:47-0500 Body weight 91.8 kg MD Helen Heath Work Phone: [facility] 09-03-2022 08:47-0500 Diastolic blood pressure 69 mm[Hg] MD Helen Heath Work Phone: [facility] 09-03-2022 08:47-0500 Heart rate 98 /min MD Helen Heath Work Phone: [facility] 09-03-2022 08:47-0500 Respiratory rate 16 /min MD Helen Heath Work Phone: [facility] 09-03-2022 08:47-0500 SaO2% (BldA) [Mass fraction] 99 % MD Helen Heath Work Phone: [facility] 09-03-2022 08:47-0500 Systolic blood pressure 156 mm[Hg] MD Helen Heath Work Phone: [facility] 07-28-2022 10:14-0500 Body temperature 97.8 [degF] MD Helen Heath Work Phone: [facility] 07-28-2022 10:14-0500 Body weight 90.2 kg MD Helen Heath Work Phone: [facility] 07-28-2022 10:14-0500 Diastolic blood pressure 81 mm[Hg] MD Helen Heath Work Phone: [facility] 07-28-2022 10:14-0500 Heart rate 77 /min MD Helen Heath Work Phone: [facility] 07-28-2022 10:14-0500 Respiratory rate 16 /min MD Helen Heath Work Phone: [facility] 07-28-2022 10:14-0500 SaO2% (BldA) [Mass fraction] 98 % MD Helen Heath Work Phone: [facility] 07-28-2022 10:14-0500 Systolic blood pressure 152 mm[Hg] MD Helen Heath Work Phone: [facility] 07-04-2022 13:38-0500 Diastolic blood pressure 79 mm[Hg] Orquidea Lue [facility] 07-04-2022 13:38-0500 Heart rate 83 /min Orquidea Lue [facility] 07-04-2022 13:38-0500 Mean blood pressure 101 mm[Hg] Orquidea Lue [facility] 07-04-2022 13:38-0500 Systolic blood pressure 144 mm[Hg] Orquidea Lue [facility] 06-27-2022 10:17-0500 Body temperature 97.8 [degF] MD Helen Heath Work Phone: [facility] 06-27-2022 10:17-0500 Body weight 89.81 kg MD Helen Heath Work Phone: [facility] 06-27-2022 10:17-0500 Diastolic blood pressure 82 mm[Hg] MD Helen Heath Work Phone: [facility] 06-27-2022 10:17-0500 Heart rate 52 /min MD Helen Heath Work Phone: [facility] 06-27-2022 10:17-0500 Respiratory rate 16 /min MD Helen Heath Work Phone: [facility] 06-27-2022 10:17-0500 SaO2% (BldA) [Mass fraction] 98 % MD Helen Heath Work Phone: [facility] 06-27-2022 10:17-0500 Systolic blood pressure 140 mm[Hg] MD Helen Heath Work Phone: [facility] 06-04-2022 10:59-0400 Blood Pressure Location Orquidea Lue [facility] 06-04-2022 10:59-0400 Diastolic blood pressure 74 mm[Hg] Orquidea Lue [facility] 06-04-2022 10:59-0400 Heart rate 68 /min Orquidea Lue [facility] 06-04-2022 10:59-0400 Respiratory rate 16 /min Orquidea Lue [facility] 06-04-2022 10:59-0400 Systolic blood pressure 130 mm[Hg] Orquidea Cortez [facility] 05-23-2022 11:13-0400 Body temperature 97.8 [degF] PHYSICIAN NO [facility] 05-23-2022 11:13-0400 Body weight 98.42 kg PHYSICIAN NO [facility] 05-23-2022 11:13-0400 Diastolic blood pressure 60 mm[Hg] PHYSICIAN NO [facility] 05-23-2022 11:13-0400 Heart rate 78 /min PHYSICIAN NO [facility] 05-23-2022 11:13-0400 Respiratory rate 18 /min PHYSICIAN NO [facility] 05-23-2022 11:13-0400 SaO2% (BldA) [Mass fraction] 98 % PHYSICIAN NO [facility] 05-23-2022 11:13-0400 Systolic blood pressure 164 mm[Hg] PHYSICIAN NO [facility] 04-30-2022 12:10-0400 Diastolic blood pressure 71 mm[Hg] MD Helen Heath Work Phone: [facility] 04-30-2022 12:10-0400 Heart rate 66 /min MD Helen Heath Work Phone: [facility] 04-30-2022 12:10-0400 Respiratory rate 16 /min MD Helen Heath Work Phone: [facility] 04-30-2022 12:10-0400 SaO2% (BldA) [Mass fraction] 97 % MD Helen Heath Work Phone: [facility] 04-30-2022 12:10-0400 Systolic blood pressure 128 mm[Hg] MD Helen Heath Work Phone: [facility] 04-30-2022 09:30-0400 Body height 180.34 cm MD Helen Heath Work Phone: [facility] 04-30-2022 09:30-0400 Body weight 97.52 kg MD Helen Heath Work Phone: [facility] 02-05-2022 11:50-0400 Body temperature 97.7 [degF] MD Helen Heath Work Phone: [facility] 02-05-2022 11:50-0400 Body weight 92.98 kg MD Helen Heath Work Phone: [facility] 02-05-2022 11:50-0400 Diastolic blood pressure 71 mm[Hg] MD Helen Heath Work Phone: [facility] 02-05-2022 11:50-0400 Heart rate 87 /min MD Helen Heath Work Phone: [facility] 02-05-2022 11:50-0400 Respiratory rate 16 /min MD Helen Heath Work Phone: [facility] 02-05-2022 11:50-0400 SaO2% (BldA) [Mass fraction] 99 % MD Helen Heath Work Phone: [facility] 02-05-2022 11:50-0400 Systolic blood pressure 144 mm[Hg] MD Helen Heath Work Phone: [facility] 01-28-2022 08:48-0400 Blood Pressure Location Patsy Seals Jr. [facility] 01-28-2022 08:48-0400 Diastolic blood pressure 85 mm[Hg] Patsy Seals Jr. [facility] 01-28-2022 08:48-0400 Heart rate 78 /min Patsy Seals Jr. [facility] 01-28-2022 08:48-0400 Respiratory rate 16 /min Patsy Seals Jr. [facility] 01-28-2022 08:48-0400 Systolic blood pressure 164 mm[Hg] Patsy Seals Jr. [facility] 12-10-2021 10:38-0400 Blood Pressure Location Patsy Seals Jr. [facility] 12-10-2021 10:38-0400 Diastolic blood pressure 87 mm[Hg] Patsy Seals Jr. [facility] 12-10-2021 10:38-0400 Heart rate 79 /min Patsy Seals Jr. [facility] 12-10-2021 10:38-0400 Systolic blood pressure 142 mm[Hg] Patsy Seals Jr. [facility] 10-29-2021 16:00-0400 Body height 180.34 cm Price Novalys Other [facility] [employer] Other 10-29-2021 16:00-0400 Body mass index (BMI) [Ratio] 27.67 kg/m2 Price Novalys Other [employer] Other 10-29-2021 16:00-0400 Body temperature 96.1 [degF] Price Novalys Other [employer] Other 10-29-2021 16:00-0400 Body weight 89.99 kg Price Crain Other [employer] Other 10-29-2021 16:00-0400 Diastolic blood pressure 67 mm[Hg] Price Crain Other [employer] Other 10-29-2021 16:00-0400 Respiratory rate 20 /min Price Crain Other [employer] Other 10-29-2021 16:00-0400 SaO2% (BldA) [Mass fraction] 97 % Price Crain Other [employer] Other 10-29-2021 16:00-0400 Systolic blood pressure 116 mm[Hg] Price Crain Other [employer] Other 05-30-2021 14:41-0400 Body height 177.8 cm MD Helen Heath Work Phone: [facility] Encounters Encounter Date Encounter Type Care Provider Facility Start: 04-25-2025 ambulatory Orquidea Cortez Facility:[facility] Start: 04-25-2025 End: 04-25-2025 Patient encounter procedure Orquidea Cortez [facility] Start: 04-13-2025 End: 04-13-2025 Telephone encounter Piero Huddleston RN [facility] Radiol [facility]gy Procedure Comment on above: IR Outpatient Tube A ppointment Request Patient Update Start: 04-13-2025 End: 04-13-2025 ambulatory UNKNOWN PROVIDER Facility:[facility] Start: 04-05-2025 End: 04-05-2025 External Result Encounter Brook Huddleston MD Work Phone: [facility] External Department Unsolicited Start: 04-05-2025 End: 04-05-2025 External Result Encounter Brook Huddleston MD Work Phone: [facility] External Department Unsolicited Start: 04-05-2025 End: 04-05-2025 Telephone encounter Stanford Saldivar RN [facility] Radiol [facility]gy Procedure Comment on above: Radiology Pre Proced ure Instructions Start: 04-05-2025 Registered Recurring Brook Marrero MD -[facility] Work Phone: Start: 04-05-2025 End: 04-05-2025 Patient encounter procedure Carito Martell PA-C -Lab [facility] Work Phone: Start: 04-05-2025 End: 04-05-2025 ambulatory Helen Heath MD Work Phone: [facility] Work Phone: Start: 04-05-2025 Encounter for preprocedural laboratory examination Carito Martell [facility] Start: 03-28-2025 End: 03-28-2025 ambulatory Pratima Shadia Facility:[facility] Start: 03-28-2025 End: 03-28-2025 Patient encounter procedure Pratima Shadia [facility] Start: 03-27-2025 End: 03-27-2025 ambulatory Orquidea M. Lue Facility:[facility] Start: 03-27-2025 End: 03-27-2025 Patient encounter procedure Orquidea M. Lue [facility] Start: 03-20-2025 End: 03-20-2025 Telephone encounter Jesus Clement RN Angio Comment on above: Follow Up Start: 03-16-2025 End: 04-06-2025 Telephone encounter Zohra Baldwin RN [facility] Procedure Comment on above: IR Outpatient Tube A ppointment Request Opened In Error Start: 03-16-2025 End: 03-16-2025 ambulatory [facility] Start: 03-15-2025 ambulatory Pratima Shadia [facility] Start: 03-08-2025 End: 03-08-2025 E-mail encounter from caregiver [facility] Provider [facility] Radiology Procedure Start: 03-08-2025 End: 03-08-2025 Patient encounter procedure [facility] Provider [facility] Radiology Procedure Comment on above: You are scheduled fo r a Nephrostomy Tube Placement, on Sunday March 16, 2025 Start: 03-08-2025 End: 03-08-2025 Telephone encounter Marisol Ventura RN [facility] Radiol [facility] Procedure Comment on above: Radiology Pre Proced ure Instructions Start: 03-07-2025 End: 03-07-2025 ambulatory Orquidea Cortez Facility:[facility] Start: 03-04-2025 End: 03-04-2025 ambulatory TEAGAN COTTON Facility:[facility] Start: 03-03-2025 End: 03-03-2025 ambulatory Orquidea Cortez Facility:[facility] Start: 02-24-2025 End: 02-24-2025 Telephone encounter Bibiana EASLEY [facility] Comment on above: neph tube placement Start: 02-23-2025 End: 02-23-2025 ambulatory Orquidea Cortez Facility:[facility] Start: 02-23-2025 End: 02-23-2025 Patient encounter procedure Orquidea Cortez [facility] Start: 02-22-2025 End: 02-22-2025 ambulatory Pratima Shadia Facility:[facility] Start: 02-22-2025 End: 02-22-2025 Patient encounter procedure Pratima Shadia [facility] Start: 02-08-2025 End: 02-09-2025 External Result Encounter Brook Huddleston MD Work Phone: [facility] External Department Unsolicited Start: 02-08-2025 End: 02-09-2025 External Result Encounter Brook Huddleston MD Work Phone: [facility] External Department Unsolicited Start: 02-08-2025 End: 02-08-2025 ambulatory Helen Heath MD Work Phone: [facility] Work Phone: Start: 02-08-2025 End: 02-08-2025 Patient encounter procedure Brook Marrero MD -[facility] Work Phone: Start: 02-08-2025 End: 02-08-2025 Brook Marrero MD -[facility] Work Phone: Start: 02-01-2025 End: 02-01-2025 ambulatory Pratima Shadia Facility:[facility] Start: 02-01-2025 End: 02-01-2025 Patient encounter procedure Pratima Reno [facility] Start: 01-30-2025 End: 02-01-2025 External Result [...] Unsolicited Start: 01-11-2025 End: 01-11-2025 ambulatory Pratima Shadia Facility:[facility] Start: 01-11-2025 End: 01-11-2025 Lab Drop off Pratima Reno [facility] Start: 01-11-2025 End: 01-11-2025 ambulatory Pratima Reno Facility:[facility] [place] Start: 01-11-2025 End: 01-11-2025 Patient encounter procedure Pratima Reno [facility] Start: 01-03-2025 End: 01-03-2025 Price Crain MD -[facility] Work Phone: Start: 12-28-2024 End: 12-28-2024 Patient encounter procedure Helen Heath MD Work Phone: [facility] [place] Work Phone: Start: 12-28-2024 End: 12-28-2024 Price Crain MD -[facility] [place] Work Phone: Start: 12-28-2024 End: 12-28-2024 ambulatory Helen Heath MD Work Phone: [facility] Work Phone: Start: 12-21-2024 End: 12-21-2024 Lab Drop off Pratima Reno [facility] Start: 12-21-2024 End: 12-21-2024 ambulatory Pratima Reno Facility:[facility] Start: 12-14-2024 End: 12-14-2024 External Result Encounter Brook Huddleston MD Work Phone: [facility] External Department Unsolicited Start: 12-14-2024 End: 12-14-2024 External Result Encounter Brook Huddleston MD Work Phone: [facility] External Department Unsolicited Start: 12-14-2024 End: 12-14-2024 Patient encounter procedure Helen Heath MD Work Phone: [facility] [place] Work Phone: Start: 12-14-2024 End: 12-14-2024 Orquidea Marrero MD -[facility] [place] Work Phone: Start: 12-14-2024 End: 12-14-2024 ambulatory Helen Heath MD Work Phone: [facility] Work Phone: Start: 12-14-2024 Registered Recurring Helen rodriguez MD [facility] Work Phone: Start: 11-30-2024 End: 11-30-2024 ambulatory Pratima Reno Facility: [facility] Start: 11-17-2024 End: 11-17-2024 ambulatory Orquidea Cortez Facility: [facility] Start: 11-11-2024 End: 11-11-2024 External Result Encounter Brook Huddleston MD Work Phone: [facility] External Department Unsolicited Start: 11-11-2024 End: 11-11-2024 External Result Encounter Brook Huddleston MD Work Phone: [facility] External Department Unsolicited Start: 11-11-2024 End: 11-11-2024 Patient encounter procedure Helen Heath MD Work Phone: [facility] [place] Work Phone: Start: 11-11-2024 End: 11-11-2024 Helen Heath MD -[facility] [place] Work Phone: Start: 11-11-2024 End: 11-11-2024 ambulatory Helen Heath MD Work Phone: [facility] Work Phone: Start: 11-11-2024 Registered Recurring Helen rodriguez MD [facility] Work Phone: Start: 11-09-2024 End: 11-09-2024 ambulatory Helen Heath MD Work Phone: [facility] Work Phone: Start: 11-09-2024 End: 11-09-2024 Departed Referred Helen Heath MD Work Phone: [facility] Start: 11-09-2024 End: 11-09-2024 ambulatory Orquidea Cortez Facility:[id number] Start: 11-07-2024 End: 11-08-2024 ambulatory Makayla X Orzech Facility:[facility] Start: 11-07-2024 End: 11-08-2024 Lab Drop off Makayla X Orzech [facility] Start: 11-07-2024 End: 11-07-2024 ambulatory Santi Navarro SCHWARTZ Facility:[facility] Start: 10-21-2024 End: 10-21-2024 ambulatory Pratima Reon Facility:[facility] Start: 10-17-2024 End: 10-17-2024 ambulatory Helen Heath MD Work Phone: [facility] Work Phone: Start: 10-17-2024 End: 10-17-2024 Departed Referred Helen Heath MD Work Phone: [facility] Start: 10-06-2024 Registered Recurring Helen rodriguez MD Work Phone: [facility] Work Phone: Start: 10-06-2024 End: 10-06-2024 ambulatory Helen Heath MD Work Phone: [facility] Work Phone: Start: 10-06-2024 End: 10-06-2024 Patient encounter procedure Helen Heath MD Work Phone: [facility] Ambulatory Work Phone: Start: 10-04-2024 End: 10-04-2024 ambulatory Helen Heath MD Work Phone: [facility] Work Phone: Start: 10-04-2024 End: 10-04-2024 Patient encounter procedure Helen Heath MD Work Phone: [facility] Work Phone: Start: 09-27-2024 End: 09-29-2024 External Result Encounter Brook Huddleston MD Work Phone: [facility] External Department Unsolicited Start: 09-27-2024 End: 09-29-2024 External Result Encounter Brook Huddleston MD Work Phone: [facility] External Department Unsolicited Start: 09-27-2024 Registered Recurring Helen rodriguez MD Work Phone: [facility] Acute Work Phone: Start: 09-27-2024 End: 09-27-2024 Patient encounter procedure Helen Heath MD Work Phone: [facility] [place] Work Phone: Start: 09-27-2024 End: 09-27-2024 ambulatory Helen Heath MD Work Phone: [facility] Work Phone: Start: 09-21-2024 End: 09-21-2024 External Result Encounter Brook Huddleston MD Work Phone: [facility] External Department Unsolicited Start: 09-21-2024 End: 09-21-2024 External Result Encounter Brook Huddleston MD Work Phone: [facility] External Department Unsolicited Start: 09-08-2024 End: 09-08-2024 Lab Drop off Makayla X Orzech [facility] Start: 09-08-2024 End: 09-08-2024 ambulatory Makayla X Orzech Facility: [facility] Start: 09-08-2024 End: 09-08-2024 Patient encounter procedure Makayla X Orzech [facility] Start: 09-06-2024 ambulatory KENNETH HELTON Facility:[facility] Start: 08-31-2024 End: 08-31-2024 ambulatory Orquidea Cortez Facility:[facility] Start: 08-31-2024 End: 08-31-2024 Patient encounter procedure Orquidea Cortez [facility] Start: 08-24-2024 End: 08-24-2024 External Result Encounter Brook Huddleston MD Work Phone: [facility] External Department Unsolicited Start: 08-24-2024 End: 08-24-2024 External Result Encounter Brook Huddleston MD Work Phone: [facility] External Department Unsolicited Start: 08-16-2024 End: 08-16-2024 ambulatory Makayla X Orzech Facility:[facility] Start: 08-16-2024 End: 08-16-2024 Lab Drop off Makayla X Orzech [facility] Start: 08-16-2024 End: 08-16-2024 ambulatory Makayla X Orzech Facility:[facility] Start: 08-16-2024 End: 08-16-2024 Patient encounter procedure Makayla X Orzech [facility] Start: 08-09-2024 End: 08-09-2024 ambulatory Makayla X Orzech Facility:[facility] Start: 08-09-2024 End: 08-09-2024 Patient encounter procedure Makayla X Orzech [facility] Start: 08-03-2024 End: 08-03-2024 Patient encounter procedure Helen Heath MD Work Phone: [facility] [place] Work Phone: Start: 08-01-2024 End: 08-01-2024 External Result Encounter Brook Huddleston MD Work Phone: [facility] External Department Unsolicited Start: 08-01-2024 End: 08-01-2024 External Result Encounter Brook Huddleston MD Work Phone: [facility] External Department Unsolicited Start: 07-28-2024 Evaluation and management of inpatient AHMED NORRIS-RAMESHY [facility] Start: 07-27-2024 Evaluation and management of inpatient OBI EKWENNA [facility] Start: 07-25-2024 Evaluation and management of inpatient MARVIN COVINGTON [facility] Start: 07-24-2024 Evaluation and management of inpatient YONATHAN SOLORZANO [facility] Start: 07-24-2024 End: 07-30-2024 Evaluation and management of inpatient PHELAN SATNAM [facility] Start: 07-20-2024 End: 07-20-2024 ambulatory Orquidea Cortez Facility:[facility] Start: 07-20-2024 End: 07-20-2024 Patient encounter procedure Orquidea Cortez [facility] Start: 07-12-2024 End: 07-12-2024 ambulatory Makayla X Orzech Facility:[facility] [place] Start: 07-12-2024 End: 07-12-2024 Patient encounter procedure Makayla X Orzech [facility] Start: 06-29-2024 End: 06-29-2024 ambulatory Helen Heath MD Work Phone: [facility] Work Phone: Start: 06-29-2024 End: 06-29-2024 Helen Heath MD Work Phone: [facility] [place] Work Phone: Start: 06-23-2024 End: 06-23-2024 External Result Encounter Brook Huddleston MD Work Phone: [facility] External Department Unsolicited Start: 06-23-2024 End: 06-23-2024 External Result Encounter Brook Huddleston MD Work Phone: [facility] External Department Unsolicited Start: 06-23-2024 End: 06-23-2024 Helen Heath MD Work Phone: [facility] Work Phone: Start: 06-23-2024 End: 06-23-2024 ambulatory Helen Heath MD Work Phone: [facility] Work Phone: Start: 06-21-2024 End: 06-21-2024 ambulatory Makayla X Orzech Facility:[facility] Start: 06-21-2024 End: 06-21-2024 Patient encounter procedure Makayla X Orzech [facility] Start: 06-10-2024 End: 06-10-2024 ambulatory Orquidea Cortez Facility:[facility] [place] Start: 06-10-2024 End: 06-10-2024 Patient encounter procedure Orquidea Cortez [facility] [place] Start: 06-08-2024 End: 06-08-2024 Helen Heath MD Work Phone: [facility] [place] Work Phone: Start: 06-08-2024 End: 06-08-2024 ambulatory MD Helen Heath Work Phone: [facility] Work Phone: Start: 06-08-2024 End: 06-08-2024 Patient encounter procedure MD Helen Heath Work Phone: [facility] [place] Work Phone: Start: 06-03-2024 Non-patient / Non-visit MD Vipin Heath Work Phone: [facility] Physician [facility] [place] Work Phone: Start: 06-03-2024 Helen Heath MD Work Phone: [facility] Physician [facility] [place] Work Phone: Start: 06-02-2024 End: 06-05-2024 Helen Heath MD Work Phone: [facility] [place] [facility] Work Phone: Start: 06-02-2024 End: 06-05-2024 Evaluation and management of inpatient MD Helen Heath Work Phone: [facility] [place] [facility] Work Phone: Start: 06-02-2024 End: 06-04-2024 ambulatory MD Helen Heath Work Phone: [facility] Work Phone: Start: 06-02-2024 End: 06-02-2024 Patient encounter procedure MD Helen Heath Work Phone: [facility] Work Phone: Start: 06-02-2024 End: 06-02-2024 Helen Heath MD Work Phone: [facility] Work Phone: Start: 06-02-2024 End: 06-02-2024 External Result Encounter Brook Huddleston MD Work Phone: [facility] External Department Unsolicited Start: 06-02-2024 End: 06-02-2024 External Result Encounter Brook Huddleston MD Work Phone: [facility] External Department Unsolicited Start: 06-02-2024 Registered Recurring MD Inderjit Heath Work Phone: [facility] Work Phone: Start: 06-01-2024 End: 06-01-2024 ambulatory MD Helen Heath Work Phone: [facility] Work Phone: Start: 06-01-2024 End: 06-01-2024 Departed Referred MD Helen Heath Work Phone: [facility] [place] [facility] Start: 06-01-2024 Registered Referred MD Helen Heath Work Phone: [facility] Start: 06-01-2024 End: 06-01-2024 Helen Heath MD Work Phone: [facility] [place] [facility] Start: 06-01-2024 End: 06-01-2024 ambulatory Orquidea Cortez Facility:[facility] Start: 06-01-2024 End: 06-01-2024 Off-Site Orquidea Cortez [facility] Start: 05-20-2024 End: 05-24-2024 External Result Encounter [...] 05-17-2024 End: 05-17-2024 ambulatory Makayla X Orzech Facility:[facility] Start: 05-17-2024 End: 05-17-2024 Patient encounter procedure Makayla X Orzech [facility] Start: 05-06-2024 End: 05-06-2024 External Result Encounter Brook Huddleston MD Work Phone: [facility] External Department Unsolicited Start: 05-06-2024 End: 05-06-2024 External Result Encounter Brook Huddleston MD Work Phone: [facility] External Department Unsolicited Start: 04-26-2024 End: 04-26-2024 ambulatory Makayla X Orzech Facility:[facility] Start: 04-26-2024 End: 04-26-2024 Patient encounter procedure Makayla X Orzech [facility] Start: 04-22-2024 End: 04-22-2024 External Result Encounter Brook Huddleston MD Work Phone: [facility] External Department Unsolicited Start: 04-22-2024 End: 04-22-2024 External Result Encounter Brook Huddleston MD Work Phone: [facility] External Department Unsolicited Start: 04-19-2024 End: 04-19-2024 Lab Drop off Makayla X Orzech [facility] Start: 04-19-2024 End: 04-19-2024 ambulatory Makayla X Orzech Facility:[facility] Start: 04-19-2024 End: 04-19-2024 Patient encounter procedure Makayla X Orzech [facility] Start: 04-08-2024 End: 04-08-2024 External Result Encounter Brook Huddleston MD Work Phone: [facility] External Department Unsolicited Start: 04-08-2024 End: 04-08-2024 External Result Encounter Brook Huddleston MD Work Phone: [facility] External Department Unsolicited Start: 04-05-2024 End: 04-05-2024 ambulatory Makayla X Orzech Facility:[facility] Start: 04-05-2024 End: 04-05-2024 Patient encounter procedure Makayla X Orzech [facility] Start: 03-15-2024 End: 03-15-2024 Lab Drop off Makayla X Orzech [facility] Start: 03-15-2024 End: 03-15-2024 ambulatory Makayla X Orzech Facility:[facility] Start: 03-15-2024 End: 03-15-2024 Patient encounter procedure Makayla X Orzech [facility] Start: 03-08-2024 End: 03-08-2024 ambulatory MD Helen Heath Work Phone: [facility] Work Phone: Start: 03-08-2024 End: 03-08-2024 Patient encounter procedure MD Helen Heath Work Phone: [facility] Ne[facility] Work Phone: Start: 03-08-2024 Registered Recurring MD Inderjit Heath [facility] [place] [facility] Work Phone: Start: 02-29-2024 Registered Recurring MD Inderjit Heath [facility] [place] [facility] Work Phone: Start: 02-29-2024 End: 02-29-2024 ambulatory MD Helen Heath Work Phone: [facility] Work Phone: Start: 02-29-2024 End: 02-29-2024 Patient encounter procedure MD Helen Heath Work Phone: [facility] [place] Work Phone: Start: 02-25-2024 End: 02-25-2024 ambulatory MD Helen Heath Work Phone: [facility] Work Phone: Start: 02-25-2024 End: 02-25-2024 Patient encounter procedure MD Helen Heath Work Phone: [facility]-MRI [place] Work Phone: Start: 02-24-2024 End: 02-24-2024 ambulatory Orquidea Claudia Mercadoe Facility:[facility] [place] Start: 02-24-2024 End: 02-24-2024 Patient encounter procedure Orquidea Mercadoe [facility] [place] Start: 02-19-2024 Registered Recurring MD Inderjit Heath Work Phone: [facility] Acute Work Phone: Start: 2024 End: 2024 ambulatory MD Helen Heath Work Phone: [facility] Work Phone: Start: 2024 End: 2024 Patient encounter procedure MD Helen Heath Work Phone: [facility] [place] Ambulatory Work Phone: Start: 02-03-2024 End: 02-03-2024 ambulatory Orquieda M. Lue Facility:[facility] [place] Start: 02-03-2024 End: 02-03-2024 Off-Site Orquidea M. Lue [facility] [place] Start: 01-28-2024 End: 01-28-2024 ambulatory Orquidea JanesChay Mercadoheena Facility:[facility] [place] Start: 01-28-2024 End: 01-28-2024 Patient encounter procedure Orquidea Cortez [facility] [place] Start: 01-21-2024 End: 01-22-2024 Non-patient / Non-visit MD Helen Heath Work Phone: [facility] Work Phone: Start: 01-21-2024 End: 01-21-2024 ambulatory Delmar Wilburn Facility:[id number] Start: 01-19-2024 End: 01-22-2024 Evaluation and management of inpatient MD Helen Heath Work Phone: [facility] [place] [facility] Work Phone: Start: 01-18-2024 End: 01-18-2024 ambulatory Makayla X Orzech Facility:[facility] Start: 01-18-2024 End: 01-18-2024 Lab Drop off Makayla X Orzech [facility] Start: 01-18-2024 End: 01-18-2024 ambulatory Orquidea MChay Mercadoheena Facility:[facility] [place] Start: 01-18-2024 End: 01-18-2024 Patient encounter procedure Orquidea MarreroChay Mercadoheena [facility] [place] Start: 01-08-2024 End: 01-08-2024 Lab Drop off Santi SCHWARTZ [facility] Start: 01-08-2024 End: 01-08-2024 ambulatory Santi SCHWARTZ Facility:[facility] Start: 01-08-2024 End: 01-08-2024 Patient encounter procedure Santi SCHWARTZ [facility] [place] Start: 12-18-2023 Registered Recurring MD Inderjit Heath Work Phone: [facility] Work Phone: Start: 12-18-2023 End: 12-18-2023 ambulatory Santi SCHWARTZ Facility: [place] Start: 12-18-2023 End: 12-18-2023 Patient encounter procedure Santi SCHWARTZ [facility] Start: 12-09-2023 End: 12-09-2023 Lab Drop off Nancie J Galea [facility] Start: 12-09-2023 End: 12-09-2023 ambulatory Nancie J Galea Facility:[facility] Start: 12-09-2023 End: 12-09-2023 Patient encounter procedure KEN HELTON [facility] Start: 11-25-2023 End: 11-25-2023 ambulatory Santi SCHWARTZ Facility:[facility] Start: 11-25-2023 End: 11-25-2023 Patient encounter procedure Santi SCHWARTZ [facility] Start: 11-04-2023 End: 11-04-2023 ambulatory MD Helen Heath Work Phone: [facility] Work Phone: Start: 11-04-2023 End: 11-04-2023 Patient encounter procedure Santi SCHWARTZ [facility] Start: 10-29-2023 Registered Recurring MD Inderjit Heath [facility] [place] [facility] Work Phone: Start: 10-26-2023 End: 10-26-2023 Patient encounter procedure MD Helen Heath Work Phone: [facility] Nephrology Work Phone: Start: 10-26-2023 End: 10-26-2023 Patient encounter procedure MD Helen Heath Work Phone: [facility] [place] Work Phone: Start: 10-12-2023 End: 10-12-2023 ambulatory Santi SCHWARTZ Facility:[facility] [place] Start: 10-01-2023 End: 10-01-2023 ambulatory MD Helen Heath Work Phone: [facility] Work Phone: Start: 10-01-2023 End: 10-01-2023 Patient encounter procedure MD Helen Heath Work Phone: [facility] Amb[facility] Work Phone: Start: 10-01-2023 Registered Recurring MD Inderjit Heath [facility] [place] [facility] Work Phone: Start: 09-28-2023 External Result Encounter Brook Huddleston MD Work Phone: [facility] External Department Unsolicited Start: 09-28-2023 External Result Encounter Brook Huddleston MD Work Phone: [facility] External Department Unsolicited Start: 09-23-2023 End: 09-23-2023 ambulatory Orquidea Cortez Facility:[id number] Start: 09-23-2023 End: 09-23-2023 Off-Site Orquidea Cortez [facility] Start: 08-31-2023 End: 08-31-2023 ambulatory Jose BURROWS Facility:[facility] Start: 08-31-2023 End: 08-31-2023 Patient encounter procedure Jose BURROWS [facility] [place] Start: 08-11-2023 End: 08-11-2023 Lab Drop off Orquidea Marrero. Ralphe [facility] Start: 08-11-2023 End: 08-11-2023 ambulatory Orquidea M. Lue Facility:[facility] Start: 08-11-2023 End: 08-11-2023 Patient encounter procedure Orquidea M. Lue [facility] Start: 07-22-2023 End: 07-22-2023 ambulatory Orquidea M. Lue Facility:[facility] Start: 07-22-2023 End: 07-22-2023 Patient encounter procedure Orquidea M. Lue [facility] Start: 07-14-2023 End: 07-14-2023 ambulatory MD Helen Heath Work Phone: [facility] Work Phone: Start: 07-14-2023 End: 07-14-2023 Patient encounter procedure MD Helen Heath Work Phone: [facility] Work Phone: Start: 07-14-2023 Registered Recurring MD Inderjit Heath Work Phone: [facility] Work Phone: Start: 07-14-2023 ambulatory Orquidea M. Lue Facility:[facility] [place] Start: 07-02-2023 End: 07-02-2023 Lab Drop off Orquidea M. Lue [facility] Start: 07-02-2023 End: 07-02-2023 ambulatory Orquidea M. Lue Facility:[facility] Start: 06-23-2023 End: 06-23-2023 Patient encounter procedure MD Helen Heath Work Phone: [facility] [place] Work Phone: Start: 06-10-2023 End: 06-10-2023 ambulatory Orquidea M. Lue Facility:[id number] Start: 05-28-2023 End: 05-28-2023 Lab Drop off Orquidea M. Lue [facility] Start: 05-28-2023 End: 05-28-2023 ambulatory Orquidea M. Lue Facility:[facility] Start: 05-28-2023 End: 05-28-2023 Patient encounter procedure Orquidea M. Lue [facility] [place] Start: 05-19-2023 End: 05-19-2023 ambulatory MD Helen Heath Work Phone: [facility] Work Phone: Start: 05-19-2023 End: 05-19-2023 Patient encounter procedure MD Helen Heath Work Phone: [facility]XRay [place] Work Phone: Start: 05-19-2023 Registered Recurring MD Inderjit Heath Work Phone: [facility] Work Phone: Start: 05-15-2023 End: 05-15-2023 ambulatory Orquidea M. Lue Facility: [place] Start: 05-15-2023 End: 05-15-2023 Patient encounter procedure Orquidea Cortez [facility] [place] Start: 03-18-2023 ambulatory Orquidea Cortez Facility:[facility] [place] Start: 02-25-2023 Refill Jessica kaur MD Work Phone: Urology Comment on above: Refill Request Start: 02-19-2023 Registered Recurring MD Inderjit Heath Work Phone: [facility] Work Phone: Start: 02-19-2023 End: 02-19-2023 ambulatory MD Helen Heath Work Phone: [facility] Work Phone: Start: 02-19-2023 End: 02-19-2023 Patient encounter procedure MD Helen Heath Work Phone: [facility]-XRay [facility] Work Phone: Start: 02-13-2023 End: 02-13-2023 ambulatory Orquidea Cortez Facility:[facility] [place] Start: 02-13-2023 End: 02-13-2023 Patient encounter procedure Orquidea Cortez [facility] Start: 02-11-2023 End: 02-11-2023 Admission to establishment Pacc [place] 2 Work Phone: [facility] Start: 02-11-2023 End: 02-11-2023 ambulatory Pacc [place] 2 Work Phone: Pre Anesthesia Comment on [...] Start: 02-11-2023 End: 02-11-2023 Preprocedural examination done [facility] Bessie 2 Work Phone: Pre Anesthesia Start: 01-19-2023 End: 01-19-2023 ambulatory Samir Aparicio MD Work Phone: Urology Comment on above: Prostate cancer (HCC ) (Primary Dx); Acquired ureteral stricture; Neurogenic bladder; Benign prostatic hyperplasia with urinary obstruction Start: 01-19-2023 End: 01-19-2023 Telemedicine consultation with patient Samir Aparicio MD Work Phone: [facility] Start: 01-16-2023 End: 01-16-2023 Patient encounter procedure Orquidea Cortez [facility] Start: 01-14-2023 End: 01-14-2023 ambulatory Price Advisityfahad Other [employer] Other Start: 01-14-2023 Office outpatient vi sit 25 minutes Aziz Bakhous [facility] Start: 01-14-2023 Telephone encounter Price Fords [facility] Start: 01-05-2023 End: 01-05-2023 Patient encounter procedure MD Helen Heath Work Phone: [facility]-Lab [facility] Work Phone: Start: 12-19-2022 End: 12-19-2022 Patient encounter procedure Orquidea Cortez [facility] Start: 12-17-2022 End: 12-17-2022 ambulatory MD Helen Heath Work Phone: [facility] Work Phone: Start: 12-17-2022 End: 12-17-2022 Patient encounter procedure MD Helen Heath Work Phone: [facility]-Ultrasound [place] Work Phone: Start: 12-13-2022 Encounter for other preprocedural examination ORQUIDEA CORTEZ [facility] Start: 12-13-2022 Encounter for preprocedural laboratory examination ORQUIDEA CORTEZ [facility] Start: 12-11-2022 Registered Recurring MD Inderjit Heath Work Phone: [facility] Work Phone: Start: 12-10-2022 End: 12-10-2022 ambulatory ORQUIDEA CORTEZ Facility:[facility] Start: 12-08-2022 End: 12-09-2022 ambulatory KATINA PATEL Facility:[facility] Start: 12-08-2022 End: 12-09-2022 Encounter for preprocedural laboratory examination KATINA PATEL Facility:[facility] Start: 12-05-2022 End: 12-05-2022 Patient encounter procedure Orquidea Cortez [facility] Start: 12-01-2022 End: 12-01-2022 ambulatory MD Helen Heath Work Phone: [facility] Work Phone: Start: 12-01-2022 End: 12-01-2022 Patient encounter procedure MD Helen Heath Work Phone: [facility]-Ultrasound [place] Work Phone: Start: 11-27-2022 Registered Recurring MD Inderjit Heath Work Phone: [facility] Work Phone: Start: 11-27-2022 End: 11-27-2022 ambulatory MD Helen Heath Work Phone: [facility] Work Phone: Start: 11-27-2022 End: 11-27-2022 Patient encounter procedure MD Helen Heath Work Phone: [facility] [place] Work Phone: Start: 11-17-2022 End: 11-17-2022 ambulatory MD Helen Heath Work Phone: [facility] Work Phone: Start: 11-17-2022 End: 11-17-2022 Patient encounter procedure MD Helen Heath Work Phone: [facility] [place] Work Phone: Start: 11-13-2022 Registered Recurring MD Inderjit Heath Work Phone: [facility] Work Phone: Start: 11-11-2022 Registered Recurring MD Inderjit Heath Work Phone: [facility] Work Phone: Start: 11-11-2022 End: 11-11-2022 ambulatory MD Helen Heath Work Phone: [facility] Work Phone: Start: 11-11-2022 End: 11-11-2022 Patient encounter procedure MD Helen Heath Work Phone: [facility] [place] Work Phone: Start: 11-10-2022 End: 11-10-2022 Departed Referred MD Helen Heath Work Phone: [facility] [place] Work Phone: Start: 11-03-2022 End: 11-03-2022 Patient encounter procedure Orquidea Cortez [facility] Start: 10-30-2022 End: 10-30-2022 Patient encounter procedure MD Helen Heath Work Phone: [facility] [place] Work Phone: Start: 10-30-2022 Registered Recurring MD Inderjit Heath Work Phone: [facility] Work Phone: Start: 10-30-2022 End: 10-30-2022 ambulatory MD Helen Heath Work Phone: [facility] Work Phone: Start: 10-30-2022 End: 10-30-2022 Patient encounter procedure MD Helen Heath Work Phone: [facility] [place] Work Phone: Start: 10-16-2022 End: 10-16-2022 Patient encounter procedure Orquidea Cortez [facility] Start: 10-14-2022 Registered Recurring MD Inderjit Heath Work Phone: [facility] Work Phone: Start: 10-14-2022 End: 10-14-2022 ambulatory MD Helen Heath Work Phone: [facility] Work Phone: Start: 10-14-2022 End: 10-14-2022 Patient encounter procedure MD eHlen Heath Work Phone: [facility] [place] Work Phone: Start: 10-09-2022 End: 10-09-2022 Patient encounter procedure Janae Serna [facility] Start: 10-02-2022 End: 10-02-2022 ambulatory MD Helen Heath Work Phone: [facility] Work Phone: Start: 10-02-2022 End: 10-02-2022 Patient encounter procedure MD Helen Heath Work Phone: [facility] [place] Work Phone: Start: 10-01-2022 Registered Recurring MD Inderjit Heath Work Phone: [facility] Work Phone: Start: 09-23-2022 End: 09-23-2022 ambulatory MD Helen Heath Work Phone: [facility] Work Phone: Start: 09-23-2022 End: 09-23-2022 Patient encounter procedure MD Helen Heath Work Phone: [facility] [place] Work Phone: Start: 09-03-2022 End: 09-03-2022 ambulatory MD Helen Heath Work Phone: [facility] Work Phone: Start: 09-03-2022 End: 09-03-2022 Registered Recurring MD Helen Heath Work Phone: [facility] Work Phone: Start: 09-01-2022 End: 09-01-2022 Patient encounter procedure Santi SCHWARTZ [facility] Start: 08-27-2022 End: 08-28-[address] HELEN HEATH Facility: Start: 08-25-2022 End: 08-25-2022 Lab Drop off Orquidea Cortez [facility] Start: 08-25-2022 End: 08-25-2022 Patient encounter procedure Santi SCHWARTZ [facility] Start: 08-23-2022 End: 08-24-[address] HELEN HEATH Facility:H1 Start: 08-19-2022 End: 08-19-2022 Lab Drop off KEN HELTON [facility] Start: 08-19-2022 End: 08-19-2022 Patient encounter procedure KEN HELTON [facility] Start: 08-06-2022 End: 08-06-2022 Patient encounter procedure Orquidea M. Lue [facility] Start: 07-30-2022 End: 07-30-2022 ambulatory ORQUIDEA M LUE Facility:[facility]1 Start: 07-28-2022 End: 07-28-2022 ambulatory MD Helen Heath Work Phone: [facility] Work Phone: Start: 07-28-2022 End: 07-28-2022 Registered Recurring MD Helen Heath Work Phone: [facility] Start: 07-26-2022 End: 07-27-2022 ambulatory ORQUIDEA M LUE Facility:[facility]1 Start: 07-21-2022 Encounter for other preprocedural examination ORQUIDEA M LUE [facility] Start: 07-21-2022 Encounter for preprocedural respiratory examination ORQUIDEA M LUE [facility] Start: 07-17-2022 End: 07-18-2022 ambulatory ORQUIDEA M LUE Facility:[facility]1 Start: 07-17-2022 End: 07-18-2022 Encounter for other preprocedural examination ORQUIDEA M LUE Facility:[facility]1 Start: 07-17-2022 End: 07-18-2022 ambulatory ORQUIDEA M LUE Facility:[facility]1 Start: 07-07-2022 End: 07-07-2022 Patient encounter procedure Orquidea M. Lue [facility] Start: 07-04-2022 End: 07-04-2022 Patient encounter procedure Orquidea Cortez [facility] Start: 07-03-[address] Helen Heath Facility:[facility] Start: 07-01-2022 End: 07-01-2022 Patient encounter procedure Orquidea Cortez [facility] Start: 06-27-2022 End: 06-27-2022 ambulatory MD Helen Heath Work Phone: [facility] Work Phone: Start: 06-27-2022 End: 06-27-2022 Registered Recurring MD Helen Heath [facility] [place] Start: 06-04-2022 End: 06-04-2022 Lab Drop off Orquideapal Cortez [facility] Start: 06-04-2022 End: 06-04-2022 Patient encounter procedure Orquidea Cortez [facility] Start: 05-23-2022 End: 05-23-2022 ambulatory PHYSICIAN NO [facility] Work Phone: Start: 05-23-2022 End: 05-23-2022 Registered Recurring [facility]IC[facility] Start: 05-14-2022 End: 05-14-2022 Patient encounter procedure [facility] Cortez [facility] Start: 05-07-2022 End: 05-07-[address] HELEN HEATH Facility: Start: 05-06-2022 End: 05-06-2022 Patient encounter procedure Orqudiea Cortez [facility] Start: 05-05-2022 End: 05-05-2022 Patient encounter procedure Orquidea Cortez [facility] Start: 04-30-2022 End: 04-30-2022 Admission to same day surgery center MD Helen Heath Work Phone: [facility] [place] Start: 04-23-2022 End: 04-23-2022 Patient encounter procedure MD Helen Heath Work Phone: [facility] [place] Start: 04-18-2022 End: 04-18-2022 Lab Drop off Orquidea Cortez [facility] Start: 04-18-2022 End: 04-18-2022 Patient encounter procedure Orquidea Cortez [facility] Start: 04-16-2022 Registered Recurring MD Inderjit Heath Work Phone: [facility] Start: 04-03-2022 End: 04-03-2022 Patient encounter procedure Patsy Seals Jr. [facility] Start: 03-24-2022 End: 03-24-2022 Departed Referred MD Helen Heath Work Phone: [facility] [place] Start: 02-05-[address] Helen Summers [facility] Facility:[id number] Start: 01-28-2022 End: 01-28-2022 Patient encounter procedure Patsy Seals Jr. [facility] Start: 01-24-2022 Encounter for preprocedural cardiovascular examination DR PATSY Cartwright [facility] Start: 01-24-2022 Encounter for preprocedural laboratory examination DR PATSY Cartwright [facility] Start: 01-14-2022 End: 01-14-[address] PATSY Cartwright Facility: Start: 01-10-[address] HELEN HEATH [facility] ity:H1 Start: 01-09-2022 End: 01-10-[address] PATSY Cartwright Facility:H1 Start: 01-09-2022 End: 01-10-2022 Encounter for preprocedural cardiovascular examination DR PATSY Cartwright Facility: Start: 01-02-[address] Helen Heath Facility:[id number] Start: 12-23-[address] Helen Heath Facility:[id number] Start: 12-12-[address] Helen Heath Facility:[facility] Start: 12-10-2021 End: 12-10-2021 Patient encounter procedure Patsy Seals Jr. [facility] Start: 11-28-2021 ambulatory WILFREDO VANESSA Facility:[facility] Start: 10-29-2021 End: 10-29-2021 ambulatory Price Crain Other [place] Other Start: 10-29-2021 Office outpatient vi sit 25 minutes Price Crain [facility] Ne[facility] Procedures Date Procedure Procedure Detail Performing [...] interference can be removed by ordering testnumber [id number]- Immunofixation, Daratumumab-Specific,Serum or [id number]- Immunofixation, Isatuximab-Specific,Serum and submitting a new sample [...] Start: 07-28-2024 Change of cystostomy tube Orquidea Cortez Comment on above: done at [facility] [[email or web address]] Start: 06-23-2024 Complete blood count with white cell differential, automated Brook Huddleston MD Work Phone: Start: 06-23-2024 Comprehensive metabo lic panel Brook Huddleston MD Work Phone: Start: 06-04-2024 Cystoscopy MD Helen Heath Work Phone: Start: 06-04-2024 Cystoscopic insertio n of ureteric stent Orquidea Cortez Start: 06-02-2024 CT of abdomen and pe [...] Start: 02-25-2024 MR prostate wo con MD Navarro Heath Work Phone: Start: 02-03-2024 Cystoscopic insertio n of ureteric stent Orquidea Cortez Start: 01-20-2024 Ultrasonography of bilateral kidneys MD [...] Cystoscopic replacem ent of ureteric stent Orquidea Diego Start: 06-10-2023 Extracorporeal shock wave lithotripsy of calculus of kidney Orquideapal Cortez Start: 05-19-2023 Diagnostic radiograp hy of abdomen MD Helen Heath Work Phone: Start: 03-05-2023 Cystostomy and inser tion of suprapubic catheter Orquideapal Cortez Start: 02-19-2023 Plain X-ray of left hip MD Helen Heath Work Phone: Start: 02-19-2023 X-ray of lumbar spin e, four or more views MD Helen Heath Work Phone: Start: 01-05-2023 Urine culture MD Inderjit Heath Work Phone: Start: 12-17-2022 Ultrasonography of bilateral kidneys MD Helen Heath Work Phone: Start: 12-10-2022 Cystoscopic insertio n of ureteric stent Orquidea Lue Start: 12-01-2022 Ultrasonography of bilateral kidneys MD Helen Heath Work Phone: Start: 11-27-2022 X-ray of cervical spine MD Helen Heath Work Phone: Start: 11-17-2022 Ultrasonography of bilateral kidneys MD Helen Heath Work Phone: Start: 11-11-2022 MR prostate wo con MD Navarro Heath Work Phone: Start: 11-10-2022 Urine culture [...] Work Phone: Start: 08-27-2022 Transurethral prostatectomy Santi EFREN Start: 05-05-2022 Transurethral insert ion of prostatic urethral lift implant Orquidea Cortez Start: 04-30-2022 Needle biopsy PHYSICIAN NO FAMILY Start: 09-16-2021 Radiologic examinati on, osseous survey, complete MD Helen Heath Work Phone: Start: 09-03-2020 Follow-up visit Start: 03-12-2020 Duplex scan veins of upper limb MD Helen Heath Work Phone: Start: 08-20-2012 Cystoscopic removal of ureteric stent Patsy Seals Jr. Start: 08-05-2012 Cystoscopic anastomo sis of ureter to bladder with insertion of stent into ureter Patsy Vandana Urban Start: 03-02-2009 Extracorporeal shock wave lithotripsy of calculus of kidney Patsy Vandana Urban Dental surgical procedure Ka estela Luheena H/O: renal dialysis History of hemodialysis MD Helen Heath Work Phone: H/O: surgery S/P UPPP (uvulopalatopharyngopl asty) MD Helen Heath Work Phone: heel spur Patsy Vandana Cartwright Stem cell transplant Orquidea burgess Urine culture MD Helen love Work Phone: Urine culture MD Helen love Work Phone: Plan of Treatment Date Care Activity Detail Author Start: 06-24-2031 Urine microalbumin profile [facility] Start: 04-05-2026 Complete blood count Hemoglobin/[facility] Start: 03-04-2026 Complete blood count Hemoglobin/Michael [facility] Start: 01-30-2026 Creatinine measurement Serum Creatin ine [facility] Start: 07-30-2025 Creatinine measurement Serum Creatin ine [facility] Start: 04-17-2025 Influenza vaccination Influenza Vacc ine (#1) [facility] Start: 04-13-2025 End: 04-13-2025 Admission to same day surgery center [facility] Procedure Comment on above: PERC EXCHANGE NEPHRO STOMY CATH, INCLUDING DIAGNOSTIC NEPHROSTOGRAM/URETEROGRAM WHEN PERFORMED,IMAGING GUIDANCE AND ALL ASSOCIATED RAD S&I Start: 04-13-2025 Subsequent hospital visit by physician [facility] Procedure Comment on above: Ureteral 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.5] Start: 04-13-2025 End: 04-13-2025 Exchange nephrostomy catheter prq w/img gid rs&i AV IR Start: 04-05-2025 [facility] Start: 04-05-2025 [facility] Start: 03-16-2025 End: 03-16-2025 Admission to same day surgery center 03/16/2025 8:30 AM EDT - 03/16/2025 10:30 AM EDT Surgery [facility] Procedure [id number] [place] [address] Dax Forbes MD [address] [place] [address] PERC PLACEMENT NEPHROSTOMY CATH,INCLUDING DIAGNOSTIC NEPHROSTOGRAM/URETEROGRA M WHEN PERFORMED,IMAGING GUIDANCE AND ALL ASSOCIATED RAD S&I [facility] Procedure Comment on above: PERC PLACEMENT NEPHR OSTOMY CATH,INCLUDING DIAGNOSTIC NEPHROSTOGRAM/URETEROGRAM WHEN PERFORMED,IMAGING GUIDANCE AND ALL ASSOCIATED RAD S&I Start: 03-16-2025 End: 03-16-2025 Plmt nephrostomy cath prq new access rs&i AV IR Start: 03-16-2025 Subsequent hospital visit by physician 03/16/2025 8:30 AM EDT Hospital Encounter [facility] Procedure [id number] [place] [address] Dax Forbes MD [address] [place] [address] Ureteral 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.5] [facility] Procedure Comment on above: Ureteral 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.5] Start: 03-10-2025 [facility] Start: 03-08-2025 [facility] Start: 02-08-2025 End: 02-08-2025 [facility] Start: 02-08-2025 [facility] Start: 01-11-2025 [facility] Start: 01-11-2025 [facility] Start: 12-14-2024 [facility] Start: 12-14-2024 [facility] Start: 11-23-2024 [facility] Start: 11-16-2024 [facility] Start: 11-09-2024 End: 11-09-2024 Urine culture [facility] Start: 11-09-2024 Bacteria identified in Urine by Culture Urine Culture [facility] Start: 10-18-2024 End: 10-19-2024 [facility] Start: 10-17-2024 Bacteria identified in Urine by Culture Urine Culture [facility] Start: 10-17-2024 Urine culture [facility] Start: 09-21-2024 [facility] Start: 09-21-2024 [facility] Start: 09-13-2024 [facility] Start: 08-24-2024 End: 08-25-2024 [facility] Start: 08-17-2024 Advance Directive Discussion Advance Directive Discussion [facility] Start: 08-03-2024 [facility] Start: 07-28-2024 [facility] Start: 07-20-2024 [facility] Start: 06-30-2024 [facility] Start: 06-05-2024 [facility] Start: 06-04-2024 Cystoscopy OR Cysto/Retro/Stent/Stone/ Holmium Laser (Left) [facility] Start: 06-03-2024 Cystoscopy OR Cysto/Retro/Stent/Stone/ Holmium Laser (Left) [facility] Start: 06-03-2024 aPTT in Platelet poo r plasma by Coagulation assay [facility] Start: 06-03-2024 Comprehensive metabo lic 2000 panel - Serum or Plasma [facility] Start: 06-03-2024 [facility] Start: 06-02-2024 [facility] Start: 06-02-2024 Urine culture [facility] Start: 06-02-2024 Referral to urologist [facility] Start: 06-02-2024 Physical therapy procedure [facility] Start: 06-02-2024 Referral to resident associate [facility] Start: 06-02-2024 Referral to occupati onal therapist [facility] Start: 06-02-2024 End: 06-02-2024 [facility] Start: 06-02-2024 Hospital admission [facility] Start: 06-02-2024 Bacteria identified in Urine by Culture Urine Culture [facility] Start: 06-02-2024 Fluoroscopy of Kidne ys, Ureters and Bladder using Low Osmolar Contrast [facility] Start: 06-02-2024 [facility] Start: 06-01-2024 [facility] Start: 05-24-2024 [facility] Start: 05-19-2024 End: 05-20-2024 [facility] Start: 05-06-2024 [facility] Start: 04-22-2024 [facility] Start: 04-22-2024 [facility] Start: 04-17-2024 Covid-19 Vaccine () Covid-19 Vaccine () [facility] Start: 04-09-2024 Complete blood count Hemoglobin/Michael tocrit [facility] Start: 04-09-2024 Creatinine measurement Serum Creatin ine [facility] Start: 04-08-2024 [facility] Start: 03-24-2024 End: 03-25-2024 [facility] Start: 03-18-2024 [facility] Start: 03-08-2024 [facility] Start: 03-04-2024 [facility] Start: 03-02-2024 [facility] Start: 03-02-2024 [facility] Start: 02-24-2024 HEMOGLOBIN/HEMATOCRIT HEMOGLOBIN/HEM ATOCRIT [facility] Start: 02-24-2024 SERUM CREATININE SERUM CREATININE Cl [facility] Start: 02-19-2024 [facility] Start: 02-16-2024 [facility] Start: 01-28-2024 [facility] Start: 01-22-2024 [facility] Start: 01-21-2024 Referral to urologist [facility] Start: 01-20-2024 Referral to resident associate [facility] Start: 01-19-2024 Hospital admission [facility] Start: 01-19-2024 [facility] Start: 01-19-2024 Plain chest X-ray XR chest 1V portab le [facility] Start: 01-19-2024 Bacteria identified in Blood by Culture [facility] Start: 01-19-2024 Bacteria identified in Urine by Culture [facility] Start: 01-19-2024 Blood culture for bacteria, including anaerobic screen Blood Culture [facility] Start: 12-18-2023 [facility] Start: 10-22-2023 [facility] Start: 10-08-2023 [facility] Start: 10-08-2023 [facility] Start: 09-24-2023 [facility] Start: 09-10-2023 [facility] Start: 08-26-2023 End: 08-27-2023 [facility] Start: 08-18-2023 [facility] Start: 07-31-2023 [facility] Start: 07-28-2023 [facility] Start: 07-16-2023 [facility] Start: 07-02-2023 [facility] Start: 06-18-2023 [facility] Start: 06-18-2023 [facility] Start: 06-04-2023 [facility] Start: 06-04-2023 [facility] Start: 05-21-2023 [facility] Start: 05-19-2023 End: 05-19-2023 [facility] Start: 05-19-2023 Immunofixation for Urine [facility] Start: 05-07-2023 [facility] Start: 05-07-2023 [facility] Start: 04-23-2023 [facility] Start: 04-17-2023 Influenza vaccination INFLUENZA (#1) [facility] Start: 04-09-2023 [facility] Start: 03-26-2023 [facility] Start: 03-12-2023 [facility] Start: 03-10-2023 End: 03-10-2023 [facility] Start: 03-09-2023 [facility] Start: 03-02-2023 [facility] Start: 02-19-2023 [facility] Start: 02-05-2023 [facility] Start: 01-22-2023 [facility] Start: 01-08-2023 [facility] Start: 12-25-2022 [facility] Start: 12-11-2022 [facility] Start: 11-27-2022 [facility] Start: 11-13-2022 [facility] Start: 11-11-2022 MR prostate wo con MR prostate wo co n [facility] Start: 11-11-2022 MR Prostate WO contrast [facility] Start: 11-10-2022 Urine culture Urine Culture [facility] Start: 11-06-2022 [facility] Start: 10-30-2022 [facility] Start: 10-30-2022 [facility] Start: 10-30-2022 [facility] Start: 10-21-2022 [facility] Start: 10-16-2022 [facility] Start: 10-09-2022 [facility] Start: 10-01-2022 [facility] Start: 09-23-2022 Bacteria identified in Urine by Culture [facility] Start: 09-22-2022 [facility] Start: 08-28-2022 [facility] Start: 08-27-2022 [facility] Start: 08-17-2022 ADVANCE DIRECTIVE DISCUSSION ADVANCE DIRECTIVE DISCUSSION [facility] Start: 08-17-2022 DEPRESSION ASSESSMENT DEPRESSION ASS ESSMENT [facility] Start: 07-28-2022 End: 07-28-2022 [facility] Start: 07-25-2022 End: 07-25-2022 [facility] Start: 05-29-2022 [facility] Start: 05-08-2022 [facility] Start: 04-30-2022 End: 04-30-2022 [facility] Start: 04-30-2022 Immunofixation for Urine [facility] Work Phone: Start: 04-30-2022 End: 04-30-2022 [facility] Work Phone: Start: 04-30-2022 CT guided biopsy [facility] Work Phone: Start: 04-30-[address] guided biopsy [facility] Start: 08-31-2022 Registered Recurring Anemia of renal disease [facility] Start: 2022 [facility] Start: 2022 [facility] Start: 12-18-2021 [facility] Start: 11-25-2021 [facility] Start: 09-20-2021 [facility] Start: 09-12-2021 [facility] Start: 08-19-2021 Pneumococcal Vaccine : 50+ (2 of 2 - PPSV23) Pneumococcal Vaccine: 50+ (2 of 2 - PPSV23) [facility] Start: 08-19-2021 Pneumococcal Vaccine : 50+ (2 of 2 - PPSV23, PCV20, or PCV21) Pneumococcal Vaccine: 50+ (2 of 2 - PPSV23, PCV20, or PCV21) [facility] Start: 08-19-2021 PNEUMOCOCCAL: 65+ (2 - PPSV23 if available, else PCV20) PNEUMOCOCCAL: 65+ (2 - PPSV23 if available, else PCV20) [facility] Start: 08-19-2021 PNEUMOCOCCAL: 65+ (2 - PPSV23 or PCV20) PNEUMOCOCCAL: 65+ (2 - PPSV23 or PCV20) [facility] Start: 08-14-2021 [facility] Start: 07-30-2021 COVID-19 VACCINE (4 - Booster for Pfizer series) COVID-19 VACCINE (4 - Booster for Pfizer series) [facility] Start: 07-30-2021 COVID-19 VACCINE (5 - Booster) COVID-19 VACCINE (5 - Booster) [facility] Start: 06-17-2021 End: 06-17-2021 [facility] Start: 05-17-2021 [facility] Start: 04-25-2021 End: 04-25-2021 [facility] Start: 10-10-2020 [facility] Start: 06-15-2020 [facility] Start: 05-07-2020 [facility] Start: 05-03-2020 [facility] Start: 04-25-2020 [facility] Start: 04-16-2020 End: 04-16-2020 [facility] Start: 04-12-2020 End: 04-12-2020 [facility] Start: 03-21-2020 [facility] Start: 03-21-2020 End: 03-21-2020 [facility] Start: 03-15-2020 [facility] Start: 03-12-2020 [facility] Start: 02-05-2020 RSV Vaccine (1 - 1-d ose 75+ series) RSV Vaccine (1 - 1-dose 75+ series) [facility] Start: 2010 PNEUMOCOCCAL: 65+ (1 - PCV) PNEUMOCOCCAL: 65+ (1 - PCV) [facility] Start: 12-15-2004 Medicare Annual Well ness Visit Medicare Annual Wellness Visit [facility] Start: 1995 SHINGRIX VACCINE (1 of 2) LEONARD GRIX VACCINE (1 of 2) [facility] Start: 1990 DIABETES SCREEN DIABETES SCREEN [facility] Start: 02-05-1964 Urine microalbumin profile DTAP,TDAP,TD (1 - Tdap) [facility] Start: 1963 ANNUAL PCP TEAM 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 HARSH DISEASE VISIT ANNUAL PCP TEAM CHRONIC DISEASE VISIT [facility] Start: 1963 Anxiety Screening Anxiety Screening [facility] Start: 1963 BP CONTROLLED (<130/80) BP CONTROLLE D (<130/80) [facility] Start: 1963 Depression Screening Depression Scre ening [facility] Start: 1963 HEMOGLOBIN/HEMATOCRIT HEMOGLOBIN/HEM ATOCRIT [facility] Start: 1963 Hepatitis B surface antibody level LDL CHOLESTEROL [facility] Start: 1963 HEPATITIS C SCREENING HEPATITIS C SC EMRE [facility] Start: 1963 SERUM CREATININE SERUM CREATININE Cl [facility] Start: 1955 3 comp foot exam completed DIABETIC FOOT EXAM [facility] Start: 1955 Diabetic foot examination Diabetic F oot Exam [facility] Start: 1955 Glaucoma screening Dilated Retinal E xam [facility] Start: 1955 Hepatitis B screening URINE AL BUMIN:CREATININE RATIO [facility] Start: 1955 Hepatitis C antibody , confirmatory test DILATED RETINAL EXAM [facility] Start: 1950 Hemoglobin A1c measurement HbA1C [facility] Start: 1950 Hemoglobin A1c/Hemoglobin.total in Blood HBA1C [facility] 24 hour urine measurement [facility] Work Phone: 24 hour urine measurement Fi [facility] 24 hour urine measurement [facility] Albumin [Mass/volume ] in Serum or Plasma [facility] Work Phone: Albumin [Mass/volume ] in Serum or Plasma [facility] Albumin [Mass/volume ] in Serum or Plasma [facility] Albumin/Globulin ratio [facility] Work Phone: Albumin/Globulin ratio [facility] Albumin/Globulin ratio [facility] Albumin/Globulin ratio [facility] Anion gap measurement [facility] Anion gap measurement [facility] aPTT in Platelet poo r plasma by Coagulation assay [facility] Work Phone: aPTT in Platelet poo r plasma by Coagulation assay [facility] Bacteria identified in Urine by Culture Urine culture Microbiology STAT 02/08/2025 2:45 PM EDT [facility] Work Phone: Basophils [#/volume] in Blood by Automated count [facility] Basophils/100 leukoc ytes in Blood by Automated count [facility] Blood chemistry [facility] Work Phone: Comprehensive metabo lic 1999 panel - Serum or Plasma [facility] Work Phone: Comprehensive metabo lic 1999 panel - Serum or Plasma [facility] Comprehensive metabo lic 1999 panel - Serum or Plasma [facility] Comprehensive metabo lic 1999 panel - Serum or Plasma [facility] Comprehensive metabo lic 1999 panel - Serum or Plasma [facility] Comprehensive metabo lic 1999 panel - Serum or Plasma [facility] Comprehensive metabo lic 1999 panel - Serum or Plasma [facility] Comprehensive metabo lic 1999 panel - Serum or Plasma [facility] Comprehensive metabo lic 1999 panel - Serum or Plasma [facility] Comprehensive metabo lic 1999 panel - Serum or Plasma [facility] Comprehensive metabo lic 1999 panel - Serum or Plasma [facility] Comprehensive metabo lic 1999 panel - Serum or Plasma [facility] Comprehensive metabo lic 1999 panel - Serum or Plasma [facility] Comprehensive metabo lic 1999 panel - Serum or Plasma [facility] Comprehensive metabo lic 1999 panel - Serum or Plasma [facility] Comprehensive metabo lic 1999 panel - Serum or Plasma [facility] Comprehensive metabo lic 1999 panel - Serum or Plasma [facility] Comprehensive metabo lic 1999 panel - Serum or Plasma [facility] guided biopsy [facility] Work Phone: Electrophoresis: [id number] [facility] Work Phone: Electrophoresis: [id number] [facility] Electrophoresis: [id number] [facility] Electrophoresis: [id number] [facility] Work Phone: Electrophoresis: [id number] [facility] Electrophoresis: [id number] [facility] Electrophoresis: beta-globulin [facility] Work Phone: Electrophoresis: beta-globulin [facility] Electrophoresis: beta-globulin [facility] Electrophoresis: radha ma globulin [facility] Work Phone: Electrophoresis: radha ma globulin [facility] Electrophoresis: radha ma globulin [facility] Eosinophils/100 leukocytes in Blood by Automated count [facility] Erythrocyte distribu tion width [Ratio] by Automated count [facility] Erythrocytes [#/volu me] in Blood [facility] Erythropoietin (EPO) [Units/volume] in Serum or Plasma [facility] Ferritin [Mass/volum e] in Serum or Plasma [facility] FREE K+L LT CHAINS, QN, S FREE K +L LT CHAINS, QN, S Lab Routine 01/30/2025 1:21 PM EDT [facility] Work Phone: Globulin [Mass/volum e] in Serum [facility] Work Phone: Globulin [Mass/volum e] in Serum [facility] Globulin [Mass/volum e] in Serum [facility] Globulin [Mass/volum e] in Serum [facility] Glucose measurement estimated from glycated hemoglobin [facility] End: 03-17-2026 Guidance for exchange of nephrostomy tube of Kidney IR NEPH TUBE CHANGE Radiology Routine Ureteral stricture Once per month for 12 Occurrences starting 03/16/2025 until 03/17/2026 [facility] Work Phone: Comment on above: Once per month for 1 2 Occurrences starting 03/16/2025 until 03/17/2026 Hematocrit [Volume Fraction] of Blood [facility] Hemoglobin [Mass/vol ume] in Blood [facility] Hemoglobin A1c/Hemoglobin.total in Blood [facility] Homocysteine [Moles/volume] in Serum or Plasma [facility] Homocysteine [Moles/volume] in Serum or Plasma [facility] IgA [Mass/volume] in Serum or Plasma [facility] Work Phone: IgA [Mass/volume] in Serum or Plasma [facility] IgA [Mass/volume] in Serum or Plasma [facility] IgA [Mass/volume] in Serum or Plasma [facility] IgG [Mass/volume] in Serum or Plasma [facility] Work Phone: IgG [Mass/volume] in Serum or Plasma [facility] IgG [Mass/volume] in Serum or Plasma [facility] IgG [Mass/volume] in Serum or Plasma [facility] IgM [Mass/volume] in Serum or Plasma [facility] Work Phone: IgM [Mass/volume] in Serum or Plasma [facility] IgM [Mass/volume] in Serum or Plasma [facility] IgM [Mass/volume] in Serum or Plasma [facility] Immunofixation for Urine [facility] Work Phone: Immunofixation for Urine [facility] Immunofixation for Urine [facility] Immunofixation for Urine [facility] Immunofixation for Urine [facility] Immunofixation for Urine [facility] Immunofixation for Urine [facility] Immunofixation for Urine Fir [facility] Immunofixation for Urine Fir [facility] Immunofixation for Urine [facility] Immunofixation for Urine [facility] IMMUNOFIXATION, (JOSE C ), URINE IMMUNOFIXATION, (JOSE C), URINE Lab Routine 05/20/2024 12:58 PM EDT [facility] Work Phone: IMMUNOGLOBULINS A/G/ M, QN, SER IMMUNOGLOBULINS A/G/M, QN, SER Lab Routine 05/20/2024 12:58 PM EDT [facility] Work Phone: IMMUNOGLOBULINS A/G/ M, QN, SER IMMUNOGLOBULINS A/G/M, QN, SER Lab Routine 09/27/2024 12:22 PM EST [facility] Work Phone: INR in Platelet poor plasma by Coagulation assay [facility] [place] light chains.f ree [Mass/volume] in Serum [facility] Work Phone: [place] light chains.f ree [Mass/volume] in Serum [facility] [place] light chains.f ree [Mass/volume] in Serum [facility] [place] light chains.free/Lambda light chains.free [Mass Ratio] in Serum [facility] Work Phone: [place] light chains.free/Lambda light chains.free [Mass Ratio] in Serum [facility] [place] light chains.free/Lambda light chains.free [Mass Ratio] in Serum [facility] Lactate dehydrogenas e [Enzymatic activity/volume] in Unspecified specimen [facility] Work Phone: Lactate dehydrogenas e [Enzymatic activity/volume] in Unspecified specimen [facility] Lactate dehydrogenas e [Enzymatic activity/volume] in Unspecified specimen [facility] Lactate dehydrogenas e [Enzymatic activity/volume] in Unspecified specimen [facility] Lactate dehydrogenas e [Enzymatic activity/volume] in Unspecified specimen [facility] Lambda light chains. free [Mass/volume] in Serum or Plasma [facility] Work Phone: Lambda light chains. free [Mass/volume] in Serum or Plasma [facility] Lambda light chains. free [Mass/volume] in Serum or Plasma [facility] Leukocytes [#/volume ] corrected for nucleated erythrocytes in Blood by Automated coun [facility] Leukocytes [#/volume ] in Blood [facility] Lymphocytes [#/volum e] in Blood by Automated count [facility] Lymphocytes/100 leukocytes in Blood by Automated count [facility] MCH [Entitic mass] b y Automated count [facility] MCHC [Mass/volume] b y Automated count [facility] MCV [Entitic volume] by Automated count [facility] Measurement of monoc lonal protein concentration [facility] Work Phone: Measurement of monoc lonal protein concentration [facility] Measurement of monoc lonal protein concentration [facility] Methylmalonate [Moles/volume] in Serum or Plasma [facility] Methylmalonate [Moles/volume] in Serum or Plasma [facility] Monocytes [#/volume] in Blood by Automated count [facility] Monocytes/100 leukoc ytes in Blood by Automated count [facility] Neutrophils [#/volum e] in Blood by Automated count [facility] Neutrophils/100 leukocytes in Blood by Automated count [facility] Nucleated erythrocyt es [Presence] in Blood by Automated count [facility] Patient Education [facility] Work Phone: Patient referral [facility] Work Phone: Platelet mean volume [Entitic volume] in Blood by Automated count [facility] Platelets [#/volume] in Blood [facility] Protein [Mass/volume ] in Serum or Plasma [facility] Work Phone: Protein [Mass/volume ] in Serum or Plasma [facility] Protein [Mass/volume ] in Serum or Plasma [facility] Protein [Mass/volume ] in Urine [facility] Work Phone: Protein [Mass/volume ] in Urine [facility] Protein [Mass/volume ] in Urine [facility] Prothrombin time (PT) [facility] Radiologic examinati on osseous survey compl [facility] Radiologic examinati on osseous survey compl [facility] Renal function 2000 panel - Serum or Plasma [facility] Renal function 2000 panel - Serum or Plasma [facility] Renal function 2000 panel - Serum or Plasma [facility] Renal function 2000 panel - Serum or Plasma [facility] Renal function 1999 panel - Serum or Plasma [facility] Renal function 2000 panel - Serum or Plasma [facility] Serum immunofixation [facility] Work Phone: [facility] [place] [facility] Immunizations Immunization Date Immunization Notes Care Provider [facility] 06-08-2024 influenza virus vacc ine, unspecified formulation Orquidea Lue [facility] 07-28-2023 influenza virus vacc ine, unspecified formulation Orquidea Lue [facility] 07-28-2022 hepatitis A vaccine, adult dosage MD Helen Heath Work Phone: [facility] 05-18-2022 influenza (HD-IIV4) vaccine, age 65+ yr, high dose, quadrivalent, PF (FLUZONE HIGH-DOSE) [facility] 2 Work Phone: [facility] 05-18-2022 influenza virus vacc ine, unspecified formulation Orquidea Lue [facility] 03-03-2022 zoster vaccine recombinant Orquidea Lue [facility] 02-05-2022 hepatitis A vaccine, adult dosage MD Helen Heath Work Phone: [facility] 07-31-2021 zoster vaccine recombinant Orquidea Luheena [facility] 07-16-2021 influenza (aIIV4) vaccine, age 65+ yr, quadrivalent, PF (FLUAD QUAD) [facility] 2 Work Phone: [facility] 07-16-2021 influenza virus vacc ine, unspecified formulation Orquidea Lue [facility] 06-24-2021 diphtheria, tetanus toxoids and acellular pertussis vaccine Orquidea Lue [facility] 06-24-2021 diphtheria, tetanus toxoids and acellular pertussis vaccine, 5 pertussis antigens MD Helen Heath Work Phone: [facility] 06-24-2021 haemophilus influenz ae type b vaccine, PRP-T conjugate MD Helen Heath Work Phone: [facility] 06-24-2021 hepatitis B vaccine, pediatric or pediatric/adolescent dosage MD Helen Heath Work Phone: [facility] 06-24-2021 pneumococcal conjuga te vaccine, 13 valent MD Helen Heath Work Phone: [facility] 06-04-2021 SARS-CoV-2 (COVID-19 ) Ad26 vaccine, recombinant Patsy Seals Jr. [facility] 04-29-2021 diphtheria, tetanus toxoids and acellular pertussis vaccine Orquidea Lue [facility] 04-29-2021 diphtheria, tetanus toxoids and acellular pertussis vaccine, 5 pertussis antigens MD Helen Heath Work Phone: [facility] 04-29-2021 haemophilus influenz ae type b vaccine, PRP-T conjugate MD Helen Heath Work Phone: [facility] 04-29-2021 hepatitis B vaccine, pediatric or pediatric/adolescent dosage MD Helen Heath Work Phone: [facility] 04-29-2021 meningococcal ACWY vaccine, unspecified formulation Orquidea Lue [facility] 04-29-2021 meningococcal polysaccharide (groups A, C, Y and W-135) diphtheria toxoid conjugate vaccine (MCV4P) MD Helen Heath Work Phone: [facility] 04-29-2021 pneumococcal conjuga te vaccine, 13 valent MD Helen Heath Work Phone: [facility] 03-04-2021 diphtheria, tetanus toxoids and acellular pertussis vaccine Orquidea Lue [facility] 03-04-2021 diphtheria, tetanus toxoids and acellular pertussis vaccine, 5 pertussis antigens MD Helen Heath Work Phone: [facility] 03-04-2021 haemophilus influenz ae type b vaccine, PRP-T conjugate MD Helen Heath Work Phone: [facility] 03-04-2021 hepatitis B vaccine, pediatric or pediatric/adolescent dosage MD Helen Heath Work Phone: [facility] 03-04-2021 meningococcal ACWY vaccine, unspecified formulation Orquidea Lue [facility] 03-04-2021 meningococcal polysaccharide (groups A, C, Y and W-135) diphtheria toxoid conjugate vaccine (MCV4P) MD Helen Heath Work Phone: [facility] 03-04-2021 pneumococcal conjuga te vaccine, 13 valent MD Helen Heath Work Phone: [facility] 11-13-2020 SARS-CoV-2 (COVID-19 ) Ad26 vaccine, recombinant Patsy Seals Jr. [facility] 10-23-2020 SARS-CoV-2 (COVID-19 ) Ad26 vaccine, recombinant Patsy Seals Jr. [facility] 10-12-2020 SARS-CoV-2 (COVID-19 ) mRNA-1273 vaccine Patsy Seals Jr. [facility] Comment on above: Result Comment: radha castillo date Result Comment: radha castillo date 05-17-2020 influenza virus vacc ine, unspecified formulation Patsy Seals Jr. [facility] 05-04-2020 influenza virus vacc ine, unspecified formulation Orquidea Lue [facility] 06-02-2019 influenza virus vacc ine, unspecified formulation Orquidea Lue [facility] 06-02-2019 influenza, high dose seasonal, preservative-free Pacc 2 Work Phone: [facility] 07-04-2015 influenza virus vacc ine, unspecified formulation Orquidea Lue [facility] 07-04-2015 influenza, high dose seasonal, preservative-free Pacc 2 Work Phone: [facility] 07-04-2015 pneumococcal conjuga te vaccine, 13 valent Orquidea Lue [facility] 10-27-2013 zoster vaccine, live Orquidea L ue [facility] Payers Date Payer Category Payer Self-pay [id number] 2022 Unknown [id number] 2022 Private Health Insurance [id number] 2004 Medicare [id number] [id number] 1959 Medicare [id number] 2.1 6.840.1.019373.19 1959 Unknown [id number] 1945 Unknown [id number] 2.16. 840.1.277172.3.579.2.356 1945 Unknown [id number] 2.16. 840.1.253305.3.579.2.356 1945 Unknown [id number] 2.16. 840.1.875171.3.579.2.356 1945 Unknown [id number] 2.16. 840.1.197524.3.579.2.356 1945 Unknown [id number] 2.16. 840.1.512576.3.579.2.356 1945 Unknown [id number] 2.16. 840.1.621014.3.579.2.356 1945 Unknown [id number] 2.16. 840.1.068572.3.579.2.356 1945 Unknown [id number] 2.16.84 0.1.164114.3.579.2.593 1945 Unknown [id number] 2.16.84 0.1.444314.3.579.2.593 1945 Unknown [id number] 2.16.84 0.1.794058.3.579.2.593 1945 Unknown [id number] 2.16.84 0.1.578379.3.579.2.593 1945 Unknown [id number] 2.16.84 0.1.110228.3.579.2.593 1945 Unknown [id number] 2.16.84 0.1.482390.3.579.2.593 1945 Unknown [id number] 2.16.84 0.1.457816.3.579.2.593 1945 Unknown [id number] 2.16.84 0.1.047122.3.579.2.593 1945 Unknown [id number] 2.16.84 0.1.041230.3.579.2.593 1945 Unknown [id number] 2.16.84 0.1.097892.3.579.2.593 1945 Unknown [id number] 2.16.84 0.1.418878.3.579.2.593 1945 Unknown [id number] 2.16.84 0.1.511202.3.579.2.593 1945 Unknown [id number] 2.16.8 40.1.695926.3.579.2.727 1945 Unknown [id number] 2.16.8 40.1.922579.3.579.2.727 1945 Unknown [id number] 2.16.8 40.1.523694.3.579.2.727 1945 Unknown [id number] 2.16.8 40.1.020285.3.579.2.727 1945 Unknown [id number] 2.16.8 40.1.877791.3.579.2.727 1945 Unknown [id number] 2.16.8 40.1.340327.3.579.2.727 1945 Unknown [id number] 2.16.8 40.1.452787.3.579.2.727 1945 Unknown [id number] 2.16.8 40.1.918695.3.579.2.72 1945 Unknown [id number] 2.16.8 40.1.001952.3.579.2.72 1945 Unknown [id number] 2.16.8 40.1.887006.3.579.2.72 1945 Unknown [id number] 2.16.8 40.1.503698.3.579.2.727 1945 Unknown [id number] 2.16.8 40.1.990940.3.579.2.72 1945 Unknown [id number] 2.16.8 40.1.056353.3.579.2.727 1945 Unknown [id number] 2.16.8 40.1.739934.3.579.2.72 1945 Unknown [id number] 2.16.8 40.1.277591.3.579.2.727 1945 Unknown [id number] 2.16.8 40.1.752362.3.579.2.727 1945 Unknown [id number] 2.16.8 40.1.747694.3.579.2.727 1945 Unknown [id number] 2.16.8 40.1.875746.3.579.2.72 1945 Unknown [id number] 2.16.8 40.1.804773.3.579.2.727 1945 Unknown [id number] 2.16.8 40.1.052811.3.579.2.72 1945 Unknown [id number] 2.16.8 40.1.985616.3.579.2.72 1945 Unknown [id number] 2.16.8 40.1.468461.3.579.2 1945 Unknown [id number] 2.16.8 40.1.818124.3.579.2. 1945 Unknown [id number] 2.16.8 40.1.520787.3.579.2 1945 Unknown [id number] 2.16.8 40.1.216202.3.579.2 1945 Unknown [id number] 2.16.8 40.1.359654.3.579.2 1945 Unknown [id number] 2.16.8 40.1.660713.3.579.2 1945 Unknown [id number] 2.16.8 40.1.556100.3.579.2 1945 Unknown [id number] 2.16.8 40.1.992006.3.579.2 1945 Unknown [id number] 2.16.8 40.1.178365.3.579.2 1945 Unknown [id number] 2.16.8 40.1.492227.3.579.2 1945 Unknown [id number] 2.16.8 40.1.403083.3.579.2 1945 Unknown [id number] 2.16.8 40.1.754265.3.579.2 1945 Unknown [id number] 2.16.8 40.1.384110.3.579.2 1945 Unknown [id number] 2.16.8 40.1.464914.3.579.2 1945 Unknown [id number] 2.16.8 40.1.313970.3.579.2.727 1945 Unknown [id number] 2.16.8 40.1.242496.3.579.2.72 1945 Unknown [id number] 2.16.8 40.1.657463.3.579.2.727 1945 Unknown [id number] 2.16.8 40.1.967454.3.579.2.72 1945 Unknown [id number] 2.16.8 40.1.049298.3.579.2.72 1945 Unknown [id number] 2.16.8 40.1.272121.3.579.2.72 1945 Unknown [id number] 2.16.8 40.1.102951.3.579.2.72 1945 Unknown [id number] 2.16.8 40.1.661990.3.579.2.72 1945 Unknown [id number] 2.16.8 40.1.294745.3.579.2.72 1945 Unknown [id number] 2.16.8 40.1.526176.3.579.2. 1945 Unknown [id number] 2.16.8 40.1.662990.3.579.2.72 1945 Unknown [id number] 2.16.8 40.1.977101.3.579.2.72 1945 Unknown [id number] 2.16.8 40.1.214325.3.579.2.72 1945 Unknown [id number] 2.16.8 40.1.668347.3.579.2. 1945 Unknown [id number] 2.16.8 40.1.919432.3.579.2.727 1945 Unknown [id number] 2.16.8 40.1.328285.3.579.27 1945 Unknown [id number] 2.16.8 40.1.474361.3.579.2.727 1945 Unknown [id number] 2.16.8 40.1.987862.3.579.2.727 1945 Unknown [id number] 2.16.8 40.1.213356.3.579.2.727 1945 Unknown [id number] 2.16.8 40.1.545477.3.579.2.72 1945 Unknown [id number] 2.16.8 40.1.098890.3.579.2.72 1945 Unknown [id number] 2.16.8 40.1.789436.3.579.2.727 1945 Unknown [id number] 2.16.8 40.1.848362.3.579.2.72 1945 Unknown [id number] 2.16.8 40.1.766726.3.579.2.727 1945 Unknown [id number] 2.16.8 40.1.515018.3.579.2.727 1945 Unknown [id number] 2.16.8 40.1.989516.3.579.2.727 1945 Unknown [id number] 2.16.8 40.1.089214.3.579.2.727 194 Unknown [id number] 2.16.8 40.1.923224.3.579.2.727 194 Unknown [id number] 2.16.8 40.1.954985.3.579.2.727 1945 Unknown [id number] 2.16.8 40.1.511891.3.579.2.727 194 Unknown [id number] 2.16.8 40.1.219102.3.579.2.72 1945 Unknown [id number] 2.16.8 40.1.650899.3.579.2.727 1945 Unknown [id number] 2.16.8 40.1.858403.3.579.2.727 1945 Unknown [id number] 2.16.8 40.1.859085.3.579.2.72 1945 Unknown [id number] 2.16.8 40.1.379460.3.579.2.72 1945 Unknown [id number] 2.16.8 40.1.169859.3.579.2.72 1945 Unknown [id number] 2.16.8 40.1.657638.3.579.2. 1945 Unknown [id number] 2.16.8 40.1.808601.3.579.2.727 Medicare [id number] Unknown [id number] 2.1 6.840.1.694220.19 Unknown [id number] 2.16.8 40.1.198171.3.579.2.531 Unknown [id number] 2.16.8 40.1.468496.3.579.2.531 Unknown [id number] 2.16.8 40.1.350742.3.579.2.531 Unknown [id number] 2.16.8 40.1.933139.3.579.2.531 Unknown [id number] 2.16.8 40.1.853028.3.579.2.531 Unknown [id number] 2.16.8 40.1.090468.3.579.2.531 Unknown [id number] 2.16.8 40.1.345744.3.579.2.531 Unknown [id number] 2.16.8 40.1.473577.3.579.2.531 Unknown [id number] 2.16.8 40.1.414837.3.579.2.531 Unknown [id number] 2.16.8 40.1.697966.3.579.2.531 Unknown [id number] 2.16.8 40.1.420866.3.579.2.531 Unknown [id number] 2.16.8 40.1.152257.3.579.2.531 Social History Date Type Detail Facility Start: 11-13-2020 End: 02-11-2023 Tobacco smoking status Ex-smoker (finding) [employer] Other Comment on above: pt quit smoking 20 y ears ago pt quit smoking 20 y ears ago Start: 01-07-2023 End: 02-11-2023 Sex Assigned At Male [facility] [employer] Other Start: 02-05-2022 End: 01-19-2024 Tobacco smoking status NHIS Never smoked tobacco (finding) [facility] Start: 1945 Sex Assigned At Male [facility] Start: 07-22-2023 End: 04-25-2025 Tobacco smoking status Never [facility] Comment on above: pt quit smoking 20 y ears ago Tobacco smoking stat us NHIS Tobacco smoking consumption unknown [facility] Start: 1945 Sex Assigned At Not on file [facility] End: 08-17-1979 History of tobacco use Current smoker [facility] End: 08-17-1979 History of tobacco use Cigarette Smoker [facility] Start: 01-07-2023 End: 02-11-2023 Cigarettes smoked current (pack per day) - Reported 2 [facility] Start: 02-11-2023 Tobacco use and exposure Smokeless tobacco non-user [facility] Start: 02-11-2023 Alcohol intake Current drinke r of alcohol (finding) [facility] Start: 02-11-2023 Alcohol Comment none since 1990 leydi [facility] Start: 11-28-2009 End: 06-24-2024 Sex Male (finding) [facility] Tobacco quit 28 years To bacco Use:. [facility] [employer] Comment on above: pt quit smoking 20 y ears ago Tobacco smoking status [facility] [place] Medical Equipment Procedure Code Equipment Code Equipment Origin al Text Equipment Identifier Dates Insertion of central venous catheter (CVC) with subcutaneous port for chemotherapy [id number] FDA Start: 03-09-2020 Fluoroscopic guidance for insertion of tunnelled dialysis catheter [id number] FDA Start: 03-08-2020 Fluoroscopic guidance for insertion of tunnelled dialysis catheter [id number] FDA Start: 03-08-2020 Fluoroscopic guidance for insertion of tunnelled dialysis catheter [id number] FDA Start: 03-08-2020 Fluoroscopic guidance for insertion of tunnelled dialysis catheter [id number] FDA Start: 03-08-2020 Fluoroscopic guidance for insertion of tunnelled dialysis catheter [id number] FDA Start: 03-08-2020 Fluoroscopic guidance for insertion of tunnelled dialysis catheter [id number] FDA Start: 03-08-2020 Fluoroscopic guidance for insertion of tunnelled dialysis catheter [id number] FDA Start: 03-08-2020 Fluoroscopic guidance for insertion of tunnelled dialysis catheter [id number] FDA Start: 03-08-2020 Fluoroscopic guidance for insertion of tunnelled dialysis catheter [id number] FDA Start: 03-08-2020 Fluoroscopic guidance for insertion of tunnelled dialysis catheter [id number] FDA Start: 03-08-2020 Fluoroscopic guidance for insertion of tunnelled dialysis catheter [id number] FDA Start: 03-08-2020 Fluoroscopic guidance for insertion of tunnelled dialysis catheter [id number] FDA Start: 03-08-2020 Fluoroscopic guidance for insertion of tunnelled dialysis catheter [id number] FDA Start: 03-08-2020 Fluoroscopic guidance for insertion of tunnelled dialysis catheter [id number] FDA Start: 03-08-2020 Fluoroscopic guidance for insertion of tunnelled dialysis catheter [id number] FDA Start: 03-08-2020 Fluoroscopic guidance for insertion of tunnelled dialysis catheter [id number] FDA Start: 03-08-2020 Fluoroscopic guidance for insertion of tunnelled dialysis catheter [id number] FDA Start: 03-08-2020 Fluoroscopic guidance for insertion of tunnelled dialysis catheter [id number] FDA Start: 03-08-2020 Fluoroscopic guidance for insertion of tunnelled dialysis catheter [id number] FDA Start: 03-08-2020 Fluoroscopic guidance for insertion of tunnelled dialysis catheter [id number] FDA Start: 03-08-2020 Fluoroscopic guidance for insertion of tunnelled dialysis catheter [id number] FDA Start: 03-08-2020 Fluoroscopic guidance for insertion of tunnelled dialysis catheter [id number] FDA Start: 03-08-2020 Fluoroscopic guidance for insertion of tunnelled dialysis catheter [id number] FDA Start: 03-08-2020 Fluoroscopic guidance for insertion of tunnelled dialysis catheter [id number] FDA Start: 03-08-2020 Fluoroscopic guidance for insertion of tunnelled dialysis catheter [id number] FDA Start: 03-08-2020 Fluoroscopic guidance for insertion of tunnelled dialysis catheter [id number] FDA Start: 03-08-2020 Fluoroscopic guidance for insertion of tunnelled dialysis catheter [id number] FDA Start: 03-08-2020 Fluoroscopic guidance for insertion of tunnelled dialysis catheter [id number] FDA Start: 03-08-2020 Fluoroscopic guidance for insertion of tunnelled dialysis catheter [id number] FDA Start: 03-08-2020 Fluoroscopic guidance for insertion of tunnelled dialysis catheter [id number] FDA Start: 03-08-2020 Fluoroscopic guidance for insertion of tunnelled dialysis catheter [id number] FDA Start: 03-08-2020 Fluoroscopic guidance for insertion of tunnelled dialysis catheter [id number] FDA Start: 03-08-2020 Fluoroscopic guidance for insertion of tunnelled dialysis catheter FDA Start: 03-08-2020 Fluoroscopic guidance for insertion of tunnelled dialysis catheter FDA Start: 03-08-2020 Fluoroscopic guidance for insertion of tunnelled dialysis catheter [id number] FDA Start: 03-08-2020 Fluoroscopic guidance for insertion of tunnelled dialysis catheter [id number] FDA Start: 03-08-2020 Fluoroscopic guidance for insertion of tunnelled dialysis catheter [id number] FDA Start: 03-08-2020 Fluoroscopic guidance for insertion of tunnelled dialysis catheter [id number] FDA Start: 03-08-2020 Fluoroscopic guidance for insertion of tunnelled dialysis catheter [id number] FDA Start: 03-08-2020 Fluoroscopic guidance for insertion of tunnelled dialysis catheter [id number] FDA Start: 03-08-2020 Fluoroscopic guidance for insertion of tunnelled dialysis catheter [id number] FDA Start: 03-08-2020 Fluoroscopic guidance for insertion of tunnelled dialysis catheter [id number] FDA Start: 03-08-2020 Fluoroscopic guidance for insertion of tunnelled dialysis catheter FDA Start: 03-08-2020 Fluoroscopic guidance for insertion of tunnelled dialysis catheter [id number] FDA Start: 03-08-2020 Cystoscopy, with ureteral calculus manipulation and stent placement [id number] FDA Start: 06-04-2024 Stent Inlay Opti ma 6fr Taper Crow Green Polymer Phreecoat 26cm Ureteral - [id number] Start: 03-05-2023 Goals Date Patient Goal Desired Activity /State Personal health goal Functional Status Date Assessment Result Facility 08-31-2024 Functional Status N/A [facility] 08-09-2024 Functional Status N/A [facility] 06-10-2024 Functional Status N/A [facility] 06-05-2024 Functional status Patient at [facility] Work Phone: 06-02-2024 Functional status Patient at [facility] Work Phone: 01-28-2024 Functional Status N/A [facility] 01-22-2024 Functional status Patient at [facility] Work Phone: 07-22-2023 Functional Status N/A [facility] 05-15-2023 Functional Status N/A [facility] 02-13-2023 Functional Status N/A [facility] 12-19-2022 Functional Status N/A [facility] 12-05-2022 Functional Status N/A [facility] 11-03-2022 Functional Status N/A [facility] 10-16-2022 Functional Status N/A [facility] 10-09-2022 Functional Status N/A [facility] 07-07-2022 Functional Status N/A [facility] 07-04-2022 Functional Status N/A [facility] 06-04-2022 Functional Status N/A [facility] 05-05-2022 Functional Status N/A [facility] 04-18-2022 Functional Status N/A [facility] 01-28-2022 Functional Status N/A [facility] Mental Status Date Assessment Result Facility 06-05-2024 Cognitive function Patient at [facility] Work Phone: 06-02-2024 Cognitive function Cognitive Sta tus Patient at [facility] Work Phone: 01-22-2024 Cognitive function Cognitive Sta tus Patient at [facility] Work Phone: Clinical Notes 03-15-2020 to 04-25-2025 Telephone Encounter - Stanford Saldivar RN - 04/13/2025 1:09 PM EDTTelephone Encounter - Stanford Saldivar RN - 04/13/2025 1:09 PM EDTTelephone Encounter - Ana Marques - 04/13/2025 1:03 PM EDT Note Date & Type Note Facility 04-25-2025 Hospital Discharg e instructions Patient Education 04/25/2025 14:11:03 Percutaneous Nephrostomy Home Guide Percutaneous Nephrostomy Home Guide Percutaneous nephrostomy is a procedure to insert a tube into your kidney. This is done to help urine leave your body. The nephrostomy tube is inserted into your back and connected to a drainage bag outside your body. Urine collects in the drainage bag. You will need to empty and change the drainage bag. You will also need to care for the area where the tube was inserted (tube insertion site). How to empty the drainage bag Empty the leg bag or bedside drainage bag when it becomes ? full. Also, empty it before you go to sleep. Most of the bags have a drain valve at the bottom. This allows urine to be emptied. Follow these steps: 1.Hold the drainage bag over a toilet or collection container. Use a measuring container if your health care provider told you to measure your urine. 2.Open the drain valve of the bag. Allow urine to drain out. 3.After all the urine has drained, close the drain valve fully. 4.Flush urine down the toilet. If you used a collection container, rinse the container. How to change the dressing around the nephrostomy tube Change your bandage (dressing) and clean your tube insertion site as told by your health care provider. You may need to change the dressing every day for the first 2 weeks. After the first 2 weeks, you may be told to change it twice a week. Supplies needed: Mild soap and water. Split gauze pads, 4 x 4 inches (10 x 10 cm). Gauze pads, 4 x 4 inches (10 x 10 cm). Paper tape. Follow these steps: 1.Wash hands with soap and water for at least 20 seconds. 2.Gently remove the tape and dressing from around the tube. Do not pull on the tube when you take off the dressing. Avoid using scissors. These may damage the tube. 3.Wash the skin around the tube with soap and water. Rinse well and pat the skin dry. 4.Check the skin around the drain for signs of infection. Check for: Redness, swelling, or pain. More fluid or blood. Warmth. Pus or a bad smell. 5.If the drain was stitched (sutured) to the skin, check to make sure the suture is still in place. 6.Place two split gauze pads in and around the tube insertion site. Do not apply ointments or alcohol to the site. 7.Place a gauze pad on top of the split gauze pad. 8.Make sure the tubing rests on the gauze, not the skin. 9.Place tape around each edge of the gauze pad. 10.Secure the tubing. Make sure the tube does not kink or become pinched. 11.Dispose of used supplies in the right way. How to flush the nephrostomy tube Flushing should only be done as told by your health care provider. It is easier to do if a three-way stopcock has been placed. One part of the stopcock connects to your tube, one part connects to the drainage bag, and one part is covered with a cap. The lever on the stopcock points to the part that is closed to flow. Normally, it points to the part that is covered with the cap. Supplies needed: Alcohol wipe. Syringes pre-filled with a solution for flushing. Sterile cap. Follow these steps: 1.Move the lever of the three-way stopcock so it points toward the drainage bag. 2.Remove the cap from the stopcock port. 3.Clean the stopcock port with an alcohol wipe. Scrub the port for 5 15 seconds. 4.Screw the tip of the flush syringe into the stopcock port. 5.Over 5 10 seconds, use the syringe plunger to slowly push 5 10 mL, or the amount of flush solution told by your health care provider. If you feel something resist or if it hurts when you push, stop pushing the flush. 6.Remove the syringe from the stopcock port. 7.Move the lever so it points in the direction of the stopcock port. 8.Cover stopcock port with a new sterile cap. 9.Dispose of used supplies in the right way. How to replace the drainage bag Replace the drainage bag, three-way stopcock, and extension tubing as told by your health care provider. Follow these steps: 1.Empty urine from the drainage bag. 2.Gather a new drainage bag, three-way stopcock, and extension tubing. 3.Remove the drainage bag, stopcock, and tubing from the nephrostomy tube. 4.Attach the new drainage bag, stopcock, and tubing. 5.Dispose of the used drainage bag, stopcock, and tubing. General recommendations When you connect your tube to a drainage bag, make sure there are no kinks in the tubing. You may want to wrap an elastic bandage over the tubing. This will help keep it in place. Make sure there is no tension on the tubing, so it does not get pulled on. At night, connect your tube or the leg bag to a larger bedside drainage bag. Always keep the tubing, the leg bag, and the bedside drainage bag below the level of your kidney. Avoid activities that may cause your tube to bend. Because of where your tube is, you may need help from a second person to do your dressing changes. Make sure you always have an extra drainage bag and connecting tubing on hand. Contact a health care provider if: You have problems with any of the drain valves or tubing. You have back pain that does not get better with medicine. You have any signs of infection around your tube insertion site. You have a fever or chills. You make more urine than normal, or it hartman when you urinate. You make less urine than normal. You have new blood in your urine. Get help right away if: You have chest pain or trouble breathing. Your tube comes out. These symptoms may be an emergency. Get [...] provider. Document Revised: 02/19/2023 Document Reviewed: 02/19/2023 Pipewise Patient Education 2023 [employer]. Follow Up Care 03/27/2025 15:46:33 With:Diego RICKS, OUSMANE Bell, URO Address: When: Unknown [facility] 04-25-2025 Note Patient Education Urology Percutaneous Nephrostomy Home Guide Percutaneous nephrostomy is a procedure to insert a tube into your kidney. This is done to help urine leave your body. The nephrostomy tube is inserted into your back and connected to a drainage bag outside your body. Urine collects in the drainage bag. You will need to empty and change the drainage bag. You will also need to care for the area where the tube was inserted (tube insertion site). How to empty the drainage bag Empty the leg bag or bedside drainage bag when it becomes ? full. Also, empty it before you go to sleep. Most of the bags have a drain valve at the bottom. This allows urine to be emptied. Follow these steps: 1. Hold the drainage bag over a toilet or collection container. Use a measuring container if your health care provider told you to measure your urine. 2. Open the drain valve of the bag. Allow urine to drain out. 3. After all the urine has drained, close the drain valve fully. 4. Flush urine down the toilet. If you used a collection container, rinse the container. How to change the dressing around the nephrostomy tube Change your bandage (dressing) and clean your tube insertion site as told by your health care provider. You may need to change the dressing every day for the first 2 weeks. After the first 2 weeks, you may be told to change it twice a week. Supplies needed: ??? Mild soap and water. ??? Split gauze pads, 4 x 4 inches (10 x 10 cm). ??? Gauze pads, 4 x 4 inches (10 x 10 cm). ??? Paper tape. Follow these steps: 1. Wash hands with soap and water for at least 20 seconds. 2. Gently remove the tape and dressing from around the tube. Do not pull on the tube when you take off the dressing. Avoid using scissors. These may damage the tube. 3. Wash the skin around the tube with soap and water. Rinse well and pat the skin dry. 4. Check the skin around the drain for signs of infection. Check for: ??? Redness, swelling, or pain. ??? More fluid or blood. ??? Warmth. ??? Pus or a bad smell. 5. If the drain was stitched (sutured) to the skin, check to make sure the suture is still in place. 6. Place two split gauze pads in and around the tube insertion site. Do not apply ointments or alcohol to the site. 7. Place a gauze pad on top of the split gauze pad. 8. Make sure the tubing rests on the gauze, not the skin. 9. Place tape around each edge of the gauze pad. 10. Secure the tubing. Make sure the tube does not kink or become pinched. 11. Dispose of used supplies in the right way. How to flush the nephrostomy tube Flushing should only be done as told by your health care provider. It is easier to do if a three-way stopcock has been placed. One part of the stopcock connects to your tube, one part connects to the drainage bag, and one part is covered with a cap. The lever on the stopcock points to the part that is closed to flow. Normally, it points to the part that is covered with the cap. Supplies needed: ??? Alcohol wipe. ??? Syringes pre-filled with a solution for flushing. ??? Sterile cap. Follow these steps: 1. Move the lever of the three-way stopcock so it points toward the drainage bag. 2. Remove the cap from the stopcock port. 3. Clean the stopcock port with an alcohol wipe. Scrub the port for 5?15 seconds. 4. Screw the tip of the flush syringe into the stopcock port. 5. Over 5?10 seconds, use the syringe plunger to slowly push 5?10 mL, or the amount of flush solution told by your health care provider. If you feel something resist or if it hurts when you push, stop pushing the flush. 6. Remove the syringe from the stopcock port. 7. Move the lever so it points in the direction of the stopcock port. 8. Cover stopcock port with a new sterile cap. 9. Dispose of used supplies in the right way. How to replace the drainage bag Replace the drainage bag, three-way stopcock, and extension tubing as told by your health care provider. Follow these steps: 1. Empty urine from the drainage bag. 2. Gather a new drainage bag, three-way stopcock, and extension tubing. 3. Remove the drainage bag, stopcock, and tubing from the nephrostomy tube. 4. Attach the new drainage bag, stopcock, and tubing. 5. Dispose of the used drainage bag, stopcock, and tubing. General recommendations ??? When you connect your tube to a drainage bag, make sure there are no kinks in the tubing. You may want to wrap an elastic bandage over the tubing. This will help keep it in place. Make sure there is no tension on the tubing, so it does not get pulled on. ??? At night, connect your tube or the leg bag to a larger bedside drainage bag. ??? Always keep the tubing, the leg bag, and the bedside drainage bag below the level of your kidney. ??? Avoid activities that may cause your tube to bend. ??? Because of where your tube is, you may need help from a second person to (more content not included)... [facility] 04-13-2025 Telephone encounter Note Nephrostomy tube teaching information sent to pt My Chart [facility] 04-13-2025 Miscellaneous Notes Nephrostomy tube teaching information sent to pt My Chart documented in this encounter [facility] 04-13-2025 Telephone encounter Note Pt is due 05/25. Need qgenda schedule. [facility] 04-13-2025 Miscellaneous Notes Pt is due 05/25. Need qgenda schedule. [...] needed for schedulers?n/a documented in this encounter [facility] 04-13-2025 Telephone encounter Note Tube Exchange Appointment Request Form Person [...] Any other pertinent information needed for schedulers?n/a [facility] 04-05-2025 Telephone encounter Note Spoke with Piedad and pt on the line, aware of below instructions RADIOLOGY PROCEDURE INSTRUCTIONS: You are scheduled for a Bilateral Nephrostomy tube change, on March You are to arrive at 1030 am and check in at [facility]: Radiology Outpatient Desk [id number]. You can expect to be here for 2-3 hours. Address: [address] [address] Diet: Do not eat any solid food [...] work. Stated is having lab drawn at [facility]. She will call pt Dr. Parham to add Inr and CBC to current blood work. Advised to bring in copies of lab work. Lab work needs to be drawn? Yes, labs need to be drawn at least one day prior to procedure. Please bring a copy of the results if they are not done at a [facility] facility. Internet Sales Associate/Transportation: How will you be arriving for your [...] dependent care arrangements need to be made. _ If you need to cancel or reschedule your procedure, please call our tap and die maker technician: Aleisha Johansen and [place] [phone]; 8am - 4pm M-F If you have any additional questions please call: [facility] nurses desk at [phone] 8am - 4pm M-F. [facility] 04-05-2025 Miscellaneous Notes Spoke with Piedad and pt on the line, aware of below instructions RADIOLOGY PROCEDURE INSTRUCTIONS: You are scheduled for a Bilateral Nephrostomy tube change, on March You are to arrive at 1030 am and check in at [facility]: Radiology Outpatient Desk [id number]. You can expect to be here for 2-3 hours. Address: [place] [address] Diet: Do not eat any solid food [...] work. Stated is having lab drawn at [facility]. She will call pt Dr. Parham to add Inr and CBC to current blood work. Advised to bring in copies of lab work. Lab work needs to be drawn? Yes, labs need to be drawn at least one day prior to procedure. Please bring a copy of the results if they are not done at a [facility] facility. Internet Sales Associate/Transportation: How will you be arriving for your [...] dependent care arrangements need to be made. _ If you need to cancel or reschedule your procedure, please call our tap and die maker technician: Aleisha Johansen and [place] [phone]; 8am - 4pm M-F If you have any additional questions please call: [facility] nurses desk at [phone] 8am - 4pm M-F. documented in this encounter [facility] 03-27-2025 Hospital Discharg e instructions Patient Education [...] including vitamins, herbs, eye drops, creams, and kwsb-orm-bxaeseo medicines. Any problems you or family members [...] health care provider tells you to. Taking mldn-iud-sxbfagk medicines, vitamins, herbs, and supplements. Tests You [...] provider. Document Revised: 02/19/2023 Document Reviewed: 02/19/2023 Pipewise Patient Education 2023 [employer]ighterLine. Follow Up Care 03/23/2025 13:18:17 With:Diego RICKS, OUSMANE Bell, URO Address: When: Unknown [facility] 03-27-2025 Note Patient Education Urology Percutaneous Nephrostomy [...] including vitamins, herbs, eye drops, creams, and blix-fur-veezscm medicines. ??? Any problems you or family [...] care provider tells you to. ??? Taking uwyx-min-ukmvcxx medicines, vitamins, herbs, and supplements. Tests You [...] drainage bag. ??? (more content not included)... [facility] 03-20-2025 Telephone encounter Note SERVICE DATE: March 20, 2025 SERVICE [...] hours please call or and ask the asphalt machine operator to page the interventional residential door unit installer facility environmental technician. 5) To change or schedule an appointment [...] for nephrostomy tube care instructions and demonstrations. [email or web address] Activity and Exercise: (When I can drive, [...] please call Interventional Radiology nurse triage line [phone], Thursday - Thursday 9 a.m. - 4 p.m. After hours please call and ask for Interventional Radiology Fellow facility environmental technician, pager [phone]. In the event of acute symptoms report directly to local emergency department and notify the Department of Intervention Radiology after the fact. IR will contact you and schedule for follow up appointment will be set up for routine exchange in 4 weeks All questions and concerns were addressed. I spent 20 minutes on the above conversation with the patient. T [facility] 03-20-2025 Miscellaneous Notes SERVICE DATE: March 20, 2025 SERVICE TIME: [...] hours please call or and ask the asphalt machine operator to page the interventional residential door unit installer facility environmental technician. 5) To change or schedule an appointment [...] for nephrostomy tube care instructions and demonstrations. [email or web address] Activity and Exercise: (When I can drive, [...] please call Interventional Radiology nurse triage line [phone], Thursday - Thursday 9 a.m. - 4 p.m. After hours please call and ask for Interventional Radiology Fellow facility environmental technician, pager [phone]. In the event of acute symptoms report directly to local emergency department and notify the Department of Intervention Radiology after the fact. IR will contact you and schedule for follow up appointment will be set up for routine exchange in 4 weeks All questions and concerns were addressed. I spent 20 minutes on the above conversation with the patient. documented in this encounter [facility] 03-16-2025 Note HNO ID: [id number] Author: DAX FORBES MD Service: Interventional Radiology Author Type: Physician Type: Procedures Filed: 03/16/2025 11:37 Note Text: BRIEF OPERATIVE / PROCEDURE NOTE LOG ID: [id number] SURGERY/PROCEDURE DATE: 03/16/2025 INCISION/PROCEDURE START TIME: 9:45 AM INCISION CLOSE/PROCEDURE END TIME: 11:26 AM SURGEON(S)/PROCEDURALIST(S) AND STEEL HANDLER(S): Surgeons and Role: * Dax Forbes MD - Primary No Additional Staff SURGERY/PROCEDURE(S): Bilateral PCN placement ANESTHESIA: Procedural Sedation FINDINGS: Successful bilateral 10 Mexican PCN (left DM and right BS) placement via inferior pole calyces. US pre-procedure showed moderate hydronephrosis on the left, but no hydronephrosis on the right. Batch Mixing Truck Driver showed indwelling bilateral double J stents and [...] DATE: March 16, 2025 TIME: 11:34 AM [facility] 03-16-2025 Telephone encounter Note Tube Exchange Appointment Request Form Person [...] Any other pertinent information needed for schedulers?bilateral [facility] 03-16-2025 Miscellaneous Notes Tube Exchange Appointment Request Form Person filling [...] needed for schedulers?bilateral documented in this encounter [facility] 03-08-2025 Telephone encounter Note Spoke with Patsy Herbert's that appointment is for ThursdayMarch 16 RADIOLOGY PROCEDURE INSTRUCTIONS: You are scheduled for a Nephrostomy Tube Placement, on February You are to arrive at 07:30 am and check in at [facility]: Radiology Outpatient Desk [id number]. You can expect to be here for 6-8 hours. Address: [address] [address] Diet: Do not eat any solid food [...] Lab work needs to be drawn? No. Internet Sales Associate/Transportation: How will you be arriving for your [...] dependent care arrangements need to be made. _ If you need to cancel or reschedule your procedure, please call our tap and die maker technician: Aleisha Johansen and [place] [phone]; 8am - 4pm M-F If you have any additional questions please call: [facility] nurses desk at [phone] 8am - 4pm M-F. Option 1 [facility] 03-08-2025 Miscellaneous Notes Spoke with Patsy Herbert's that appointment is for ThursdayMarch 16 RADIOLOGY PROCEDURE INSTRUCTIONS: You are scheduled for a Nephrostomy Tube Placement, on February You are to arrive at 07:30 am and check in at [facility]: Radiology Outpatient Desk [id number]. You can expect to be here for 6-8 hours. Address: [place] [address] Diet: Do not eat any solid food [...] Lab work needs to be drawn? No. Internet Sales Associate/Transportation: How will you be arriving for your [...] dependent care arrangements need to be made. _ If you need to cancel or reschedule your procedure, please call our tap and die maker technician: Teo Johansen [phone]; 8am - 4pm M-F If you have any additional questions please call: [facility] nurses desk at [phone] 8am - 4pm M-F. Option 1 documented in this encounter [facility] 03-07-2025 Note Patient Education - Text Bond [...] cotton underwear to absorb moisture and keep stretcher and drier. 6. Keep the drainage bag below [...] After The follo (more content not included)... [facility] 02-24-2025 Telephone encounter Note Summary: neph tube placement Order scanned in Waiting for previous imaging [facility] 02-24-2025 Miscellaneous Notes Summary: neph tube placement Order scanned in Waiting for previous imaging documented in this encounter [facility] 02-23-2025 Hospital Discharg e instructions Patient Education [...] including vitamins, herbs, eye drops, creams, and nsmo-srb-otjmsjq medicines. Any problems you or family members [...] health care provider tells you to. Taking hicw-txt-xvaiqnn medicines, vitamins, herbs, and supplements. Tests You [...] provider. Document Revised: 02/19/2023 Document Reviewed: 02/19/2023 Pipewise Patient Education 2023 [employer]. Follow Up Care 11/17/2024 15:35:53 With:Diego RICKS, OUSMANE Bell, URO Address: When: Unknown [facility] 02-23-2025 Note Patient Education Urology Percutaneous Nephrostomy [...] including vitamins, herbs, eye drops, creams, and egpw-qyg-glpwkmp medicines. ??? Any problems you or family [...] care provider tells you to. ??? Taking vngl-yuc-awclmjy medicines, vitamins, herbs, and supplements. Tests You [...] drainage bag. ??? (more content not included)... [facility] 02-08-2025 Evaluation note Diagnosis Onset Date [...] renal disease inactive A ugust 2024 1:24pm [facility] Work Phone: 1(971) 801-601605-28-2025 Hospital Discharge instructions Patient Education 01/11/2025 12:14:00 [...] Treatment for this condition includes: Antibiotic medicine. Vuuc-wvy-mtcejrq medicines to treat discomfort. Drinking enough water [...] Follow these instructions at home: Medicines Take ifjg-wav-hbcdqza and prescription medicines only as told by [...] provider. Document Revised: 03/10/2021 Document Reviewed: 03/15/2021 Pipewise Patient Education 2023 [employer]. Follow Up Care 12/21/2024 11:48:13 With:Pratima Reno PA-C, URL Address: When: Unknown Comments:RTC in 3 weeks for cath change [facility] 05-28-2025 NotePatient Education Obstetrics and Gynecology [...] this condition includes: ??? Antibiotic medicine. ??? Ynew-hrw-qpgqxyz medicines to treat discomfort. ??? Drinking enough [...] these instructions at home: Medicines ??? Take cgnb-ioa-vckieyr and prescription medicines only as told by [...] Make sure you di (more content not included)...[facility]05-20-2025 Evaluation note* Diagnosis Onset Date Resolution [...] renal disease inactive J une 2024 2:04pm [facility] Work Phone: 1(485) 481-471605-07-2025 NotePatient Education Obstetrics and Gynecology Urinary Tract [...] this condition includes: ??? Antibiotic medicine. ??? Nxxc-ank-njuqhjh medicines to treat discomfort. ??? Drinking enough [...] these instructions at home: Medicines ??? Take bmea-ifc-peudcxm and prescription medicines only as told by [...] Make sure you di (more content not included)...[facility]04-03-2025 NotePatient Education Urology Suprapubic Catheter Replacement [...] and water are not available, use hand cray fishing hand. ??? Disconnect the bag from the catheter and immediately attach a new bag to the catheter. ??? Empty the used bag completely. ??? Clean the used bag according to the resourcing advisor's instructions, or as told by your provider. ??? Let the bag dry completely, and put it in a clean plastic bag before storing it. General instructions ??? Always wash your hands before and after caring for your catheter and collection bag. Use soap and water. If soap and water are not available, use hand cray fishing hand. ??? Always make sure there are no [...] ??? 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 October 06, 2024 1:24pm Rash and nonspecific skin eruption chronic October 06 1:24pm Steroid-induced diabetes mellitus chronic October 06 1:24pm Superficial thrombophlebitis of left upper extremity chronic October 062024 1:24pm Urinary incontinence chronic 2024 1:24pm Acute renal failure on dialysis reso lved October 06, 2024 1:24pm Anemia of renal disease inactive F 2024 1:24pm [facility] Work Phone: 1(980) 933-553302-18-2025 Evaluation note* Diagnosis Onset Date Resolution Status Admit Date Anemia of chronic renal failure, stage 4 (severe) acute 2024 3:21pm 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 October 04 3:21pm Hypophosphatemia acute October 04, 2024 3:21pm [...] chronic October 11:25am History of hemodialysis chronic [facility] 2024 11:25am Iron deficiency anemia chronic [facility] 2024 11:25am 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 November 11 11:25am Rash and nonspecific skin eruption chronic November 11, 2024 11:25am Steroid-induced diabetes mellitus chronic November 11, 2024 11:25am Superficial thrombophlebitis of left upper extremity chronic November 11, 2024 11:25am Urinary incontinence [facility] 2024 11:25am Acute renal failure on dialysis reso lved November 11, 2024 11:25am Anemia of renal disease inactive [facility] 2024 11:25am [facility] Work Phone: 1(211) 442-758102-18-2025 Evaluation note* Diagnosis Onset Date Resolution Status [...] renal disease inactive A pril 2024 11:25am [facility] Work Phone: 1(873) 671-430902-17-2025 NotePatient Education Obstetrics and Gynecology Urinary Tract [...] this condition includes: ??? Antibiotic medicine. ??? Wnsl-svk-vspcytj medicines to treat discomfort. ??? Drinking enough [...] these instructions at home: Medicines ??? Take szca-xrl-chxhuml and prescription medicines only as told by [...] Make sure you di (more content not included)...[facility]01-23-2025 Hospital Discharge instructions Patient Education 09/08/2024 [...] provider. Document Revised: 03/03/2023 Document Reviewed: 03/03/2023 Pipewise Patient Education 2023 [employer]. 09/08/2024 15:50:32 Urinary Tract Infection, Adult Urinary [...] Treatment for this condition includes: Antibiotic medicine. Jyix-mqw-hpsufoz medicines to treat discomfort. Drinking enough water [...] Follow these instructions at home: Medicines Take yhra-ioz-nhtiews and prescription medicines only as told by [...] provider. Document Revised: 03/10/2021 Document Reviewed: 03/15/2021 Pipewise Patient Education 2023 [employer]. Follow Up Care 08/16/2024 12:31:05 With:CARLEY Damian APRN, Makayla Soriano, CARIDAD, URL Address: When: Unknown Comments:3 wk cath change [facility] 01-23-2025 NotePatient Education Caregiving Antibiotic Medicine, Adult [...] ??? You have sig (more content not included)...[facility] 08-31-2024 Hospital Discharge instructions Patient Education [...] or mouth. Supplies needed: Soap. Alcohol-based hand cray fishing hand. Standard cleaning products. Disinfectants, such as bleach. [...] water are not available, use alcohol-based hand cray fishing hand. Avoid touching your face, mouth, nose, or [...] water. Air-dry your dishes or use a publications designer. Do not share dishes or eating utensils. [...] certain germs and not others. Read the resourcing advisor's instructions or read online resources to determine [...] minutes after each use, or according to resourcing advisor's instructions. Wash reusable cleaning cloths and sanitize [...] water are not available, use alcohol-based hand cray fishing hand. In general: Stay home except to get [...] provider. Document Revised: 09/22/2022 Document Reviewed: 09/22/2022 Elsevier Patient Education 2023 [employer]. Follow Up Care 08/09/2024 11:50:25 With:Diego RICKS, Orquidea Taylor URL, URO Address: When: Unknown Comments:Schedule BL stent exchange in 3 mos [facility] 01-15-2025 NotePatient Education Infectious Disease Infection [...] Supplies needed: ??? Soap. ??? Alcohol-based hand cray fishing hand. ??? Standard cleaning products. ??? Disinfectants, such [...] water are not available, use alcohol-based hand cray fishing hand. ??? Avoid touching your face, mouth, nose, [...] water. Air-dry your dishes or use a publications designer. ??? Do not share dishes or eating [...] certain germs and not others. Read the resourcing advisor's instructions or read online resources to determine if the product you are using will work for the germ you are trying to remove. ??? If you choose to use bleach, use it safely. Never mix it with other cleaning products, especially those that contain ammonia. This mixture can create a dangerous gas that may be deadly. ??? Keep proper (more content not included)...[facility] 08-18-2024 NotePatient Education Caregiving Antibiotic Medicine, [...] ??? 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 August 03, 2024 3:32pm Hyperkalemia inactive July 3:32pm Stage 3b chronic kidney dise ase (CKD) deleted August 03 024 3:32pm B12 deficiency chronic September 172024 [...] September 272024 12:16pm Urinary incontinence chronic Febr uary 2024 12:16pm Acute renal failure on dialysis reso lved September 27, 2024 12:16pm Anemia of renal disease inactive F ebruary 2024 12:16pm [facility] Work Phone: 1(538) 895-383712-18-2024 Evaluation note* Diagnosis Onset Date Resolution Status [...] September 272024 12:16pm Urinary incontinence chronic Febr uary 2024 12:16pm Acute renal failure on dialysis reso lved September 27, 2024 12:16pm Anemia of renal disease inactive F ebruary 2024 12:16pm Anemia of chronic renal failure, [...] ase (CKD) deleted October 04 025 3:21pm [facility] Work Phone: 1(963) 933-288612-18-2024 Evaluation note* Diagnosis Onset Date Resolution Status [...] (CKD) deleted August 03, 2 024 3:32pm Anemia of chronic renal failure, [...] stage 4 (severe) acute Februa ry 2024 12:57pm B12 deficiency chronic September 182024 12:57pm Encounter for coordination o f complex care chronic October 06 12:57pm History of hemodialysis chronic F 2024 12:57pm 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 October 06, 2024 12:57pm Steroid-induced diabetes mellitus chronic October 06 12:57pm B12 deficiency chronic September 182024 1:24pm Chemotherapy-induced periphe ral neuropathy chronic October 06 1:24pm Encounter for chemotherapy management October 06 1:24pm Encounter for coordination o f complex care October 06 1:24pm History of anemia due [...] of renal disease inactive F 2024 1:24pm [facility] Work Phone: 1([phone]) 147-145912-14-2024 NoteHospital Medicine Discharge Summary Final Discharge Diagnosis: Acute kidney injury superimposed on CKD (CMS/HCC) Complicated UTI Hydronephrosis status post stent exchange on 2 On mornin chronic urinary retention status post suprapubic catheter History of multiple myeloma anemia of chronic disease Admission Diagnosis: Acute kidney injury superimposed on CKD (CMS/HCC) [N17.9, N18.9] Hospital course: Patsy Cunningham is an 79 y.o. male with a history of hydronephrosis requiring ureteral stents and a chronic suprapubic catheter who came from [facility] as a transfer requiring higher level of [...] placement for which initiation was transferred to [email or web address] Patient's potassium has remained stable with worsening [...] Complicated UTI with sepsis - spoke with [facility] blood cultures NGTD. Urine culture was mixed cecil. Did speak with them again also on 07/27 and faxed report and again mixed cecil - on admission urology recommended a total of 14 days of abx that also included his abx at [facility]. - patient has been on rocephin here [...] you take these medicati (more content not included)...[facility]12-13-2024 NoteHospital Medicine Daily Progress Note - 07/29/2024 1:31 PM; Room: [address] [place] [address] Admission: 07/24/2024 4:16 PM; Length of stay: 5 days THE HOSPITALIST TEAM PREFERS TO USE myThings FOR NON-URGENT COMMUNICATION 7AM-7PM. IF I DO NOT RESPOND WITHIN 20 MINUTES OR URGENT MATTERS, PLEASE CALL THROUGH THE FIBER DRIER OPERATOR. FROM 7PM-7AM, PLEASE PAGE [phone](COVR). Code Status: Full Code Barriers to Discharge: OK by neph and urology Expected Discharge Date: 07/30 Discharge Destination: home Overview Patsy Cunningham is an 79 y.o. male with a history of hydronephrosis requiring ureteral stents and a chronic suprapubic catheter who came from [facility] as a transfer requiring higher level of [...] placement for which initiation was transferred to [facility] [[email or web address] Patient's potassium has remained stable with worsening [...] Complicated UTI with sepsis - spoke with [facility] blood cultures NGTD. Urine culture was mixed cecil. Did speak with them again also on 07/27 and faxed report and again mixed cecil - on admission urology recommended a total of 14 days of abx that also included his abx at [facility]. - patient has been on rocephin here [...] 07/29/2024 3:55 PM p (more content not included)...[facility]12-13-2024 NoteNephrology Progress Note Patient : Patsy Cunningham; 79 y.o. Location: [facility]- Attending: Cris Devries DO Admit Date: 07/24/2024 Hospital Day: 5 Reason for Consult: RINA on CKD3b, appreciate recommendations regarding initiation of hemodialysis. Subjective: History of present illness: Patsy Cunningham is a 79 y.o. male with a history of hydronephrosis requiring ureteral stents and a chronic suprapubic catheter who came from [facility] as a transfer requiring higher level of [...] placement for which initiation was transferred to [facility] [[email or web address] Patient's potassium has remained stable with worsening [...] Dose Status acetaminophen (Tylenol) 500 mg tablet [id number] Take 650 mg by mouth every 6 (six) hours if needed for mild pain (1-3 pain score). Historical Provider, Active aspirin 81 mg EC tablet [id number] Take 81 mg by mouth in the morning. Historical Provider, Active atorvastatin (Lipitor) 20 mg tablet [id number] Take 20 mg by mouth in the evening. Historical Provider, Active cholecalciferol (Vitamin D3) 50 MCG (2000 UT) tablet [id number] Take 2,000 Units by mouth. Historical Provider, Active cyanocobalamin (Vitamin B-12) 1,000 mcg tablet [id number] Take 1,000 mcg by mouth in the morning. Historical Provider, Active darbepoetin raymond (Aranesp, in polysorbate,) syringe [id number] Inject 10 mcg under the skin if needed (every other week as needed for hgb <10). Historical ProviderMD Active docusate sodium (Colace) 50 mg capsule [id number] Take 50 mg by mouth in the morning. Historical Provider, Active famotidine (Pepcid) 20 mg (more content not included)...[facility]12-13-2024 NoteOccupational Therapy Name: Patsy Cunningham Date of : 1945 Today's Date: 07/29/24 Pt is unable to be seen for therapy at this time secondary to physician underwriter provided maximum encouragement for OOBA and pt reports, I still haven't eaten an I am in pain. Lead Project Engineer explains benefits of activity promotion to improve activity tolerance, decreased weakness and to prevent blood clots. Pt verbalizes understanding but continues to defer therapy. . Will check back and complete therapy session as appropriate. Check No Charge Time attempted: [id number]12-13-2024 Note Attestation signed by Franklyn Lau MD [...] per primary Guicho Alejandro MD Urology Resident, PGY-2UnDayton [facility]12-12-2024 Note Patient: Patsy Cunningham Procedure Summary Date: 07/28/24 Room / Location: [facility] [[email or web address]] OPERATING ROOM 07 / [facility] Operating Room Anesthesia Start: 1757 Anesthesia [...] 15 07/28/24 1855 SpO2 97 % 07/28/24 185 Vitals shown include unfiled device data. Anesthesia Post Evaluation Patient location during evaluation: PACU Patient participation: complete - patient participated Level of consciousness: awake Pain score: 0 Pain management: adequate Airway patency: patent Cardiovascular status: acceptable Respiratory status: acceptable and room air Hydration status: acceptable Patient is hemodynamically stable and is able to be discharged from PACU per anesthesia protocol. No notable events documented.[facility]12-12-2024 Note Patient: Patsy Cunningham Procedure Summary Date: 07/28/24 Room / Location: [facility] [[email or web address]] OPERATING ROOM 07 / [facility] Operating Room Anesthesia Start: 1758 Anesthesia Stop: Procedures: CYSTOURETEROSCOPY, WITH BILATERAL STENT [...] direct observation Transport: uneventful Patient condition is: stableUnDayton [facility] Medical Center12-12-2024 Note Patient: Patsy Cunningham Procedure Information Date/Time: 07/28/241834 Procedure: CYSTOURETEROSCOPY, WITH STENT EXCHANGE (Bilateral) Location: [facility] [[email or web address]] OPERATING ROOM 07 / [facility] Operating Room Surgeons: Franklyn Lau MD [...] discussed with attending and resident. Additional Equipment RequestsLicking Memorial Hospital12-12-2024 Note Attestation signed by Marvin Covington MD [...] Patient : Patsy Cunningham; 79 y.o. Location: [facility] Attending: Cris Devries DO Admit Date: 07/24/2024 Hospital Day: 4 Reason for Consult: RINA on CKD3b, appreciate recommendations regarding initiation of hemodialysis. Subjective: History of present illness: Patsy Cunningham is a 79 y.o. male with a history of hydronephrosis requiring ureteral stents and a chronic suprapubic catheter who came from [facility] as a transfer requiring higher level of [...] placement for which initiation was transferred to [facility] [[email or web address] Patient's potassium has remained stable with worsening [...] Dose Status acetaminophen (Tylenol) 500 mg tablet [id number] Take 650 mg by mouth every 6 (six) hours if needed for mild pain (1-3 pain score). Historical Provider, Active aspirin 81 mg EC tablet [id number] Take 81 mg by mouth in the morning. Historical Prov (more content not included)...[facility]12-12-2024 NoteHospital Medicine Daily Progress Note - 07/28/2024 1:35 PM; Room: [address] [place] [address] Admission: 07/24/2024 4:16 PM; Length of stay: 4 days THE HOSPITALIST TEAM PREFERS TO USE ProZyme CHAT FOR NON-URGENT COMMUNICATION 7AM-7PM. IF I DO NOT RESPOND WITHIN 20 MINUTES OR URGENT MATTERS, PLEASE CALL THROUGH THE FIBER DRIER OPERATOR. FROM 7PM-7AM, PLEASE PAGE [phone](COVR). Code Status: Full Code Barriers to Discharge:stent exchange Expected Discharge Date: 1 - 2 days Discharge Destination: home Overview Patsy Cunningham is an 79 y.o. male with a history of hydronephrosis requiring ureteral stents and a chronic suprapubic catheter who came from [facility] as a transfer requiring higher level of [...] placement for which initiation was transferred to [facility] [[email or web address] Patient's potassium has remained stable with worsening [...] Complicated UTI with sepsis - spoke with [facility] blood cultures NGTD. Urine culture was mixed [...] marrow transplantation/chemotherapy History of prostate CA - [place] 6 prostate cancer under active surveillance DMII insulin dependent - Glu 119-170 - on ISS - on lantus outpt, will start at 10 units Anemia - Hgb 8.5 - s/p 1 unit 07/27 - monitor daily CBC VTE Prophylaxis: Heparin on hold Scheduled Meds atorvastatin, 20 mg, oral, q PM cefTRIAXone, 1 g, intravenous, (more content not included)...[facility]12-12-2024 NoteOccupational Therapy Name: Patsy Cunningham Date of : 1945 Today's Date: 07/28/24 Pt is unable to be seen for therapy at this time secondary to patient defers reporting, I haven't been able to eat or drink for three days and I'm waiting for this procedure. . Will check back and complete therapy session as appropriate. Check No Charge Time attempted: [id number]12-12-2024 Note Attestation signed by Franklyn Lau MD [...] 07/27/241999 154/68 36.9 ???C (98.4 ???F) -- 18 -- 07/27/24 1754 162/67 36.8 ???C [...] from last 7 days Lab Units 07/27/24 0515 07/26/24 0445 07/25/24 0450 WBC AUTO 10*3/uL 5.37 7.94 [...] to follow Chad Munoz MD Urology Resident, PGY-4UnDay[facility]12-11-2024 Note Occupational Therapy Name: Patsy Cunningham Date of : 1945 Today's Date: 07/27/24 Pt is unable to be seen for therapy at this time secondary to PICC team arriving to place IV at this time . Will check back and complete therapy session as appropriate. Check No Charge Time attempted: 1400PUnDayton VA Medical Center12-11-2024 NoteHospital Medicine Daily Progress Note - 07/27/2024 12:34 PM; Room: [address] [place] [address] Admission: 07/24/2024 4:16 PM; Length of stay: 3 days THE HOSPITALIST TEAM PREFERS TO USE ProZyme CHAT FOR NON-URGENT COMMUNICATION 7AM-7PM. IF I DO NOT RESPOND WITHIN 20 MINUTES OR URGENT MATTERS, PLEASE CALL THROUGH THE FIBER DRIER OPERATOR. FROM 7PM-7AM, PLEASE PAGE [phone](COVR). Code Status: Full Code Barriers to Discharge: renal function Expected Discharge Date: 3 - 4 days Discharge Destination: home Overview Patsy Cunningham is an 79 y.o. male with a history of hydronephrosis requiring ureteral stents and a chronic suprapubic catheter who came from [facility] as a transfer requiring higher level of [...] placement for which initiation was transferred to [facility] [[email or web address] Patient's potassium has remained stable with worsening [...] Problem: Acute kidney injury superimposed on CKD ([facility]) Active Problems: Hydronephrosis Pyelonephritis Macrocytic anemia Assessment and Plan Acute renal failure on CKD 3b secondary to urinary obstruction - nephrology and urology consulted - Baseline Cr is 2 - 2.5 - Cr today is 4.98 - monitor daily BMP - urology does plan to exchange stents in AM, did discuss with urology Complicated UTI with sepsis - spoke with [place] blood cultures NGTD. Urine culture was mixed [...] intravenous, q24h cholecalciferol, 2, (more content not included)...[facility]12-11-2024 NoteNephrology Progress Note Patient : Patsy Cunningham; 79 y.o. [facility] Attending: Cris Devries DO Admit Date: 07/24/2024 Hospital Day: 3 Reason for Consult: RINA on CKD3b, appreciate recommendations regarding initiation of hemodialysis. Subjective: History of present illness: Patsy Cunningham is a 79 y.o. male with a history of hydronephrosis requiring ureteral stents and a chronic suprapubic catheter who came from [facility] as a transfer requiring higher level of [...] placement for which initiation was transferred to [email or web address] Patient's potassium has remained stable with worsening [...] Dose Status acetaminophen (Tylenol) 500 mg tablet [id number] Take 650 mg by mouth every 6 (six) hours if needed for mild pain (1-3 pain score). Historical Provider, Active aspirin 81 mg EC tablet [id number] Take 81 mg by mouth in the morning. Historical Provider, Active atorvastatin (Lipitor) 20 mg tablet [id number] Take 20 mg by mouth in the evening. Historical Provider, Active cholecalciferol (Vitamin D3) 50 MCG (1999) tablet [id number] Take 2,000 Units by mouth. Historical Provider, Active cyanocobalamin (Vitamin B-12) 1,000 mcg tablet [id number] Take 1,000 mcg by mouth in the morning. Historical Provider, Active darbepoetin raymond (Aranesp, in polysorbate,) syringe [id number] Inject 10 mcg under the skin if needed (every other week as need (more content not included)...[facility]12-11-2024 Luis Enrique Denise MD, Keith Barton MD, , Compa [...] 07/27/24 0400 143/59 36.2 ???C (97.1 ???F) Temporal 65 12 93 % 07/27/24 0000 155/73 36.3 ???C (97.4 ???F) Temporal 79 24 95 % 07/26/242005 141/62 36.8 ???C (98.3 ???F) Temporal 68 17 98 % 07/26/24 0815 (!) 121/94 36.8 ???C (98.3 ???F) Oral 69 25 -- Intake/Output Summary (Last 24 hours) at 07/27/2024 0802 Last data filed at 07/27/2024 0508 Gross per 24 hour Intake -- Output 2650 ml Net -2650 ml Results from last 7 days Lab Units 07/27/24 0515 07/26/24 0445 07/25/24 1438 07/25/24 0450 SODIUM mmol/L 142 138 -- 137 POTASSIUM mmol/L 3.9 4.2 4.8 5.2* CHLORIDE mmol/L 106 108* -- 111* CO2 mmol/L 29 21 -- 20* BUN mg/dL 61* 71* -- 75* CREATININE mg/dL 4.98* 6.28* -- 6.22* CALCIUM mg/dL 7.8* 8.0* -- 8.5* Results from last 7 days Lab Units 07/27/24 0515 07/26/24 0445 07/25/24 0450 WBC AUTO 10*3/uL 5.37 7.94 [...] the signing clinician a (more content not included)...[facility]12-10-2024 NoteHospital Medicine Daily Progress Note - 07/26/2024 2:56 PM; Room: [address] [place] [address] Admission: 07/24/2024 4:16 PM; Length of stay: 2 days THE HOSPITALIST TEAM PREFERS TO USE [employer] CHAT FOR NON-URGENT COMMUNICATION 7AM-7PM. IF I DO NOT RESPOND WITHIN 20 MINUTES OR URGENT MATTERS, PLEASE CALL THROUGH THE FIBER DRIER OPERATOR. FROM 7PM-7AM, PLEASE PAGE [phone](COVR). Code Status: Full Code Barriers to Discharge: renal function Expected Discharge Date: 3 - 4 days Discharge Destination: home Overview Patsy Cunningham is an 79 y.o. male with a history of hydronephrosis requiring ureteral stents and a chronic suprapubic catheter who came from [facility] as a transfer requiring higher level of [...] placement for which initiation was transferred to [facility] [[email or web address] Patient's potassium has remained stable with worsening [...] Problem: Acute kidney injury superimposed on CKD ([facility]) Active Problems: Hydronephrosis Pyelonephritis Macrocytic anemia Assessment and Plan Acute renal failure on CKD 3b secondary to urinary obstruction - nephrology and urology consulted - Baseline Cr is 2 - 2.5 - Cr today is 6.28 - monitor daily BMP Complicated UTI secondary to suprapubic catheter with sepsis POA - spoke with [place] blood cultures NGTD. 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 No () Screened by [facility]. Reviewed PT/OT, they recommend home. Per Hospitalist urology is following and possible CT. Await renal US results. Currently DC plan home no needs. will transport upon DC.[facility]12-10-2024 NoteNephrology Progress Note Patient : Patsy Cunningham; 79 y.o. Location: Attending: Cris Devries DO Admit Date: 07/24/2024 Hospital Day: 2 Reason for Consult: RINA on CKD3b, appreciate recommendations regarding initiation of hemodialysis. Subjective: History of present illness: Patsy Cunningham is a 79 y.o. male with a history of hydronephrosis requiring ureteral stents and a chronic suprapubic catheter who came from [facility] as a transfer requiring higher level of [...] placement for which initiation was transferred to [facility] [[email or web address] Patient's potassium has remained stable with worsening [...] Dose Status acetaminophen (Tylenol) 500 mg tablet [id number] Take 650 mg by mouth every 6 (six) hours if needed for mild pain (1-3 pain score). Historical Provider, Active aspirin 81 mg EC tablet [id number] Take 81 mg by mouth in the morning. Historical ProviderMD Active atorvastatin (Lipitor) 20 mg tablet [id number] Take 20 mg by mouth in the evening. Historical ProviderMD Active cholecalciferol (Vitamin D3) 50 MCG (1999 [place]) tablet [id number] Take 2,000 Units by mouth. Historical ProviderMD Active cyanocobalamin (Vitamin B-12) 1,000 mcg tablet [id number] Take 1,000 mcg by mouth in the morning. Historical ProviderMD Active darbepoetin raymond (Aranesp, in polysorbate,) syringe [id number] Inject 10 mcg under the skin if needed (every other week as needed for hgb <10) (more content not included)...[facility]12-09-2024 NoteHospital Medicine Daily Progress Note - 07/25/2024 1:02 PM; Room: [address] [place] [address] Admission: 07/24/2024 4:16 PM; Length of stay: 1 days THE HOSPITALIST TEAM PREFERS TO USE myThings FOR NON-URGENT COMMUNICATION 7AM-7PM. IF I DO NOT RESPOND WITHIN 20 MINUTES OR URGENT MATTERS, PLEASE CALL THROUGH THE FIBER DRIER OPERATOR. FROM 7PM-7AM, PLEASE PAGE [phone](COVR). Code Status: Full Code Barriers to Discharge: renal function Expected Discharge Date: 3 - 4 days Discharge Destination: home Overview Patsy Cunningham is an 79 y.o. male with a history of hydronephrosis requiring ureteral stents and a chronic suprapubic catheter who came from [facility] as a transfer requiring higher level of [...] placement for which initiation was transferred to [facility] [[email or web address] Patient's potassium has remained stable with worsening [...] Complicated UTI with sepsis - spoke with [place] blood cultures NGTD. Urine culture was mixed [...] 07/24/24 2111 POCT GLUCOSE (more content not included)...[facility] 07-25-2024 Note07/25/24920 Admission Assessment Questions Verify insurance with patient Yes Do you understand medical disease or what brought you into the hospital? Yes Who is your current PCP? Helen Heath [facility]updated in [facility] Can I schedule a follow up appointment for you at the time of discharge? Yes Do you understand why you are taking your current medications? Yes Are you taking your medications as prescribed? Yes Did patient provide teach back? Yes Pharmacy Bedside Delivery Status Interested Does the patient have a case liner assigned to them through their insurance? No [...] able to send link and activate [facility]Chart? [facility] NoteOccupational Therapy Occupational Therapy Evaluation [...] pt agreeable. Time In: 0800 Time Out: 08 General Subjective: Pt pleasant and cooperative Family/Caregiver [...] Limits General Assessment General Assessment Hearing: mild [place] Hand Dominance: Left Home Living Home Living [...] Level of Function Prior Function Level of [place]: Independent with ADLs and functional transfers, Independent [...] Toileting Deficit: (seated on toilet for attempted BM, bond) Bed Mobility Bed Mobility Bed Mobility: Yes [...] Exceptions to WFL RUE Strength R Hand Voice Systems Engineer Strength: 4-/5 LUE Assessment LUE Assessment: Exceptions to WFL LUE Strength L Hand Voice Systems Engineer Strength: 4-/5 L Shoulder Flexion: 3+/5 (baseline) Outcome Assessments AM-PAC 6 Clicks Putting on and taking off regular lower body clothing?: A Little (Min Assist/Contact Guard/Supervision) Bathing(Including washing,rinsing,drying)?: A Little (Min Assist/Contact Guard/Supervision) Toileting, which includes using the toilet,bedpan,or urinal?: A Little (Min Assist/Contact Guard/Supervision) Putting on and taking off regular upper body clothing?: A Little (Min (more content not included)...[facility]12-09-2024 Note Attestation signed by Mikki Smith PT at 07/25/2024 2:02 PM This physician underwriter present and provided 1:1 supervision, direction of [...] this patient with direct supervision of the cosigning therapist, who was present and actively involved in the patient's care. Whitney Sanders, [facility]12-08-2024 NoteHospital Medicine History and Physical 07/24/2024 11:28 PM THE HOSPITALIST TEAM PREFERS TO USE myThings FOR NON-URGENT COMMUNICATION 7AM-7PM. IF I DO NOT RESPOND WITHIN 20 MINUTES OR URGENT MATTERS, PLEASE CALL THROUGH THE FIBER DRIER OPERATOR. FROM 7PM-7AM, PLEASE PAGE [phone](COVR). Chief Complaint Worsening RINA Need for nuclear scan with possible ureteral stent History of Present Illness Patsy Cunningham is an 79 y.o. male with a history of hydronephrosis requiring ureteral stents and a chronic suprapubic catheter who came from [facility] as a transfer requiring higher level of [...] placement for which initiation was transferred to [facility] [[email or web address] Patient's potassium has remained stable with worsening [...] Problem: Acute kidney injury superimposed on CKD ([facility]) Active Problems: Hydronephrosis Pyelonephritis Macrocytic [...] consult to dietitian. Admit to inpatient, on business analytics specialist vitals closely As needed oxygen to maintain SpO2 greater than 90% Daily labs Fall risk Co (more content not included)...[facility]10-25-2024 Hospital Discharge instructions Patient Education 06/10/2024 [...] under a microscope. This is called the [place] score and the total score can range [...] similar to normal prostate cells (moderately differentiated). P[place] 8, 9, or 10: This indicates that [...] stress of having cancer. General instructions Take iels-qgn-evdzayf and prescription medicines only as told by your health care provider. If you have to go to the hospital, notify your cancer specialist (oncologist). Keep all follow-up visits. This is important. Where to find more information [place] [employer]: www.cancer.org [place] [employer] of Clinical Oncology: www.cancer.net National Cancer [place]: www.cancer.gov Contact a health care provider if: [...] provider. Document Revised: 10/30/2021 Document Reviewed: 10/30/2021 [employer] Patient Education 2023 [employer]. Follow Up Care 06/07/2024 15:19:44 With:Diego RICKS, OUSMANE Bell, URO Address: When: Unknown [facility] Marcela 10-25-2024 NotePatient Education Oncology [...] under a microscope. This is called the [place] score and the total score can range from 6?10, indicating how likely it is that the cancer will spread (metastasize) to other parts of the body. The higher the score, the greater thelikelihood that the cancer will spread. ??? [place]eville 6 or lower: This indicates that the cancer cells look similar to normal prostate cells (well differentiated). ??? [place] 7: This indicates that the cancer cells [...] needles, seeds, wires, o (more content not included)...[facility]10-20-2024 Discharge summary Author Mayda Matthews [facility] June 05, 2024 11:44am Note Date/Time June 05, 2024 1 1:44am [facility] [address] [place] [address] Discharge Summary Signed Patient: Patsy Cunningham MR#: [id number] : 1945 Acct:[id number] Age/Sex: 79 / M Adm Date: 4 Loc: Room: [address] [place] [address]: Mayda Matthews MD Copies to: [...] need to restart this medicine. Follow Up: Orquidea Cortez MD [Active Staff] - (Office to [...] <Electronically signed by Mayda Matthews MD> 06/05/24 [facility] Work Phone: 1(981) 313-427710-20-2024 Progress note Author Domonique Rahman [facility] June 05, 2024 9:35am Note Date/Time June 05, 2024 9 :35am [facility] [address] [place] [address] Nephrology Progress Note Signed Patient: Patsy Cunningham MR#: [id number] : 1945 Acct:[id number] Age/Sex: 79 / M Adm Date: 4 Loc: Room: [address] [place] [address] Type: ADM IN Attending Dr: Mayda Matthews [...] Skin: No rashes , warm to touch APPLIQUE SEWER: Awake,Alert, following simple command Musculoskeletal: No swelling [...] Vial) 5,000 unit SUBCUT Q12HR [facility] Stop: 06/02/25 20:59 Last Admin: 06/05/24 08:02 [...] 50 mls @ 100 mls/hr IV Q24H [facility] Last Admin: 06/04/24 09:43 Dose: 100 mls/hr Insulin Aspart (Insulin Aspart 300 Units/3 Ml Insuln.Pen) 8 units SUBCUT TID.ACSCH Stop: 06/03/25 07:29 Last Admin: 06/05/24 07:40 Dose: Not Given Insulin Glargine (Insulin Glargine 300 Units/3 Ml Insuln.Pen) 35 units SUBCUT QHS [facility] Stop: 06/02/25 21:59 Last Admin: 06/04/24 21:21 Dose: 35 units Lidocaine HCl (Lidocaine 1% 50 Ml Vial) 0.1 ml INTRADERMA PREOP PRN PRN Reason: Venipuncture x 1 Dose Oxybutynin Chloride (Oxybutynin Chloride 5 Mg Tab.Er.24) 10 mg PO BID [facility] Stop: 06/02/25 20:59 Last Admin: 06/05/24 08:02 [...] scheduled. Documented By: Domonique Rahman MD 06/05/24 9761 Signed By: <Electronically signed by Domonique Rahman MD> 06/05/24 6[address] [facility] Work Phone: 1(474) 285-894710-19-2024 Progress note Author Mayda Matthews [facility] June 04, 2024 1:51pm Note Date/Time June 04, 2024 1 :51pm [facility] [address] [place] [address] Hospitalist Progress Note Signed Patient: Patsy Cunningham MR#: [id number] : 1945 Acct:[id number] Age/Sex: 79 / M Adm Date: 4 Loc: Room: [address] [place] [address] Type: ADM IN Attending Dr: Mayda Matthews [...] <Electronically signed by Mayda Matthews MD> 06/04/24 135[address] [facility] Work Phone: 1([phone]) 183-492310-19-2024 Progress note Author Domonique Rahman [facility] June 04, 2024 12:16pm Note Date/Time June 04, 2024 1 2:16pm [facility] [address] [place] [address] Nephrology Progress Note Signed Patient: Patsy Cunningham MR#: [id number] : 1945 Acct:[id number] Age/Sex: 79 / M Adm Date: 4 Loc: Room: [address] [place] [address] Type: ADM IN Attending Dr: Mayda Matthews [...] Skin: No rashes , warm to touch APPLIQUE SEWER: Awake,Alert, following simple command Musculoskeletal: No swelling [...] QPM [facility] Stop: 06/02/25 20:59 Last Admin: 06/03/24 20:00 Dose: 20 mg Docusate Sodium (Docusate 100 Mg Capsule) 100 mg PO BID PRN PRN Reason: Constipation Stop: 06/02/25 18:06 Heparin Sodium (Porcine) (Heparin 5,000 Unit/Ml Vial) 5,000 unit SUBCUT Q12HR [facility] Stop: 06/02/25 20:59 Last Admin: 06/04/24 09:42 [...] 50 mls @ 100 mls/hr IV Q24H [facility] Last Admin: 06/04/24 09:43 Dose: 100 mls/hr Insulin Aspart (Insulin Aspart 300 Units/3 Ml Insuln.Pen) 8 units SUBCUT TID.ACSCH Stop: 06/03/25 07:29 Last Admin: 06/04/24 09:41 Dose: Not Given Insulin Glargine (Insulin Glargine 300 Units/3 Ml Insuln.Pen) 35 units SUBCUT QHS [facility] Stop: 06/02/25 21:59 Last Admin: 06/03/24 20:09 Dose: 35 units Lidocaine HCl (Lidocaine 1% 50 Ml Vial) 0.1 ml INTRADERMA PREOP PRN PRN Reason: Venipuncture x 1 Dose Oxybutynin Chloride (Oxybutynin Chloride 5 Mg Tab.Er.24) 10 mg PO BID [facility] Stop: 06/02/25 20:59 Last Admin: 06/04/24 09:13 [...] reading physician into a diagnostic report(s) for Patsymario Cunningham. I have reviewed the report(s) and [...] signed by Domonique Rahman MD> 06/04/24 1216 [facility] Work Phone: 1(323) 508-296610-18-2024 Consult note Author Orquidea Cortez [facility] June 03, 2024 5:31pm Note Date/Time June 03, 2024 3 :25pm [facility] [address] [place] [address] Urology Consult Note Signed Patient: Patsy Cunningham MR#: [id number] : 1945 Acct:[id number] Age/Sex: 79 / M Adm Date: 4 Loc: Room: [address] [place] [address] Type: ADM IN Attending Dr: Mayda Matthews [...] disorder Hematologic: denies easy bleeding or bruising [facility] Medical History Suprapubic catheter BPH (benign prostatic [...] % (Auto) 69.0, Lymph % (Auto) 15.6, [place] % (Auto) 7.5, Eos % (Auto) 7.7, Baso % (Auto) 0.2, Nucleat RBC Rel Count 0.1, Neut # (Auto) 3.8, Lymph # (Auto) 0.9 L, [place] # (Auto) 0.4, Eos # (Auto) 0.4, [...] Cloudy A, Urine pH 6.0, Ur Specific [place] 1.013, Urine Protein 70 H, Urine Glucose [...] for urinary diversion vs BL Nephrostomy tubes composition professor to rid pt of SPT and BL [...] cancelled again. -ok for diet, NPO @ IN Documented By: Orquidea Cortez MD 06/03/24 1520 Signed By: <Electronically signed by Orquidea Cortez MD> 06/03/24 1731 [facility] Work Phone: 1([phone]) 895-603410-18-2024 Progress note Author Mayda Matthews [facility] June 03, 2024 2:38pm Note Date/Time June 03, 2024 2 :33pm [facility] [address] [place] [address] Hospitalist Progress Note Signed Patient: Patsy Cunningham MR#: [id number] : 1945 Acct:[id number] Age/Sex: 79 / M Adm Date: 4 Loc: 3T Room: [address] [place] [address] Type: ADM IN Attending Dr: Mayda Matthews [...] Ml Insuln.Pen SUBCUT 06/03/25 07:29 Not Given TID.AC [facility] Insulin Glargine 35 units 06/02/24 22:00 06/02/24 [...] <Electronically signed by Mayda Matthews MD> 06/03/24 43[address] [facility] Work Phone: 1(296) 951-543210-18-2024 Consult note Author Domonique Rahman [facility] June 03, 2024 11:17am Note Date/Time June 03, 2024 1 0:14am [facility] [address] [place] [address] Nephrology Consult Note Signed Patient: Patsy Cunningham MR#: [id number] : 1945 Acct:[id number] Age/Sex: 79 / M Adm Date: 4 Loc: Room: [address] [place] [address] Type: ADM IN Attending Dr: Mayda Matthews [...] Denies diarrhea, Denies nausea and Denies vomiting [facility] Medical History Suprapubic catheter BPH (benign prostatic [...] 20 Mg Tablet) 20 mg PO QPM [facility] Stop: 06/02/25 20:59 Last Admin: 06/02/24 21:38 Dose: 20 mg Docusate Sodium (Docusate 100 Mg Capsule) 100 mg PO BID PRN PRN Reason: Constipation Stop: 06/02/25 18:06 Heparin Sodium (Porcine) (Heparin 5,000 Unit/Ml Vial) 5,000 unit SUBCUT Q12HR [facility] Stop: 06/02/25 20:59 Last Admin: 06/03/24 09:18 Dose: 5,000 unit Hydralazine HCl (Hydralazine 20 Mg/Ml Vial) 10 mg IV-PUSH Q4H PRN PRN Reason: if SBP > 185 Stop: 06/02/25 18:10 Hydromorphone HCl (Hydromorphone 0.5 Mg/0.5 Ml Syringe) 0.5 mg IV-PUSH Q4H PRN PRN Reason: Pain Scale 8 - 10 Lactated Ringer's (Lactated Ringers) 1,000 mls @ 75 mls/hr IV .[id number] [facility] Stop: 06/03/24 10:46 Last Admin: 06/02/24 21:38 Dose: 75 mls/hr Insulin Aspart (Insulin Aspart 300 Units/3 Ml Insuln.Pen) 8 units SUBCUT TID.ACSCH Stop: 06/03/25 07:29 Last Admin: 06/03/24 09:17 Dose: Not Given Insulin Glargine (Insulin Glargine 300 Units/3 Ml Insuln.Pen) 35 units SUBCUT QHS [facility] Stop: 06/02/25 21:59 Last Admin: 06/02/24 21:40 Dose: 35 units Oxybutynin Chloride (Oxybutynin Chloride 5 Mg Tab.Er.24) 10 mg PO BID [facility] Stop: 06/02/25 20:59 Last Admin: 06/03/24 09:18 [...] Skin: No rashes , warm to touch APPLIQUE SEWER: Awake,Alert, following simple command Musculoskeletal: No swelling [...] Cloudy A Urine pH 6.0 Ur Specific [place] 1.013 Urine Protein 70 H Urine Glucose (UA) 100 H Urine Ketones Negative Urine Occult Blood 2+ H Urine Nitrite Negative Ur Leukocyte Esterase 4+ H Urine RBC 50-100 H Urine WBC Innumerable H Urine Bacteria 1+ H 06/03/24 05:58 BUN 42 H Creatinine 3.17 H Albumin 3.2 L Urine Color Urine Appearance Urine pH Ur Specific [place] Urine Protein Urine Glucose (UA) Urine Ketones [...] nephrolithiasis. Impression dictated by: Keenan Mir Jr., D.OChay06/02/2024 6:08 PM Dictation Location: [place] [address] Any impression(s) listed above is documentation that [...] <Electronically signed by Domonique Rahman MD> 06/03/[address] [place] [address] Ctr Work Phone: 1([phone] 495-227510-17-2024 History and physical note Author Mayda Matthews [facility] June 02, 2024 6:36pm Note Date/Time June 02, 2024 6 :12pm [facility] [address] [place] [address] Hospitalist H&P Signed Patient: Patsy Cunningham MR#: [id number] : 1945 Acct:[id number] Age/Sex: 79 / M Adm Date: 4 Loc: Room: [address] [place] [address] Type: ADM IN Attending Dr: Mayda Matthews [...] except as mentioned elsewhere in the documentation [facility] Medical History Suprapubic catheter BPH (benign prostatic [...] <Electronically signed by Mayda Matthews MD> 06/02/24 7753 [facility] Work Phone: 1(945) 515-454010-17-2024 Evaluation note* Diagnosis Onset Date Resolution Status Admit Date Anemia of chronic renal failure, stage 4 (severe) acute Octobe r 2023 2:06pm B12 deficiency chronic June 022023 2:06pm Encounter for coordination o f complex care chronic June 02 2:06pm History of hemodialysis chronic O ctober 2023 2:06pm 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 June 02 024 2:06pm 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 [...] Octobe r 2023 5:52pm Hydronephrosis, left inactive Octo pierre 2023 5:52pm Hyperkalemia inactive May 5:52pm Hypertensive chronic kidney disease with stage 1 through stage 4 chronic ki inactive June 02, 2024 5:52pm Noncompliant bladder inactive Octo pierre 2023 5:52pm Type 2 diabetes mellitus wit [...] 2024 11:03am History of hemodialysis chronic N ov2023 11:03am Iron deficiency anemia chronic No vem2023 11:03am 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 November 7th, 2 024 11:03am Rash and nonspecific skin eruption chronic June 23 11:03am 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 11:03am Superficial thrombophlebitis of left upper extremity chronic June 11:03am Urinary incontinence chronic Nove mber 2023 11:03am Acute renal failure on dialysis reso lved June 23, 2024 11:03am Anemia of renal disease inactive N ovember 2023 11:03am [facility] Work Phone: 1(684) 308-710510-17-2024 Evaluation note* Diagnosis Onset Date Resolution Status Admit Date Anemia of chronic renal failure, stage 4 (severe) acute Octobe r 2023 2:06pm B12 deficiency chronic June 022023 2:06pm Encounter for coordination o f complex care chronic June 02 2:06pm History of hemodialysis chronic O ctober 2023 2:06pm 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 June 02, 2 024 2:06pm 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 [...] extremity chronic June 11:03am Urinary incontinence chronic Nove mber 2023 11:03am Acute renal failure on dialysis reso lved June 23, 2024 11:03am Anemia of renal disease inactive N ovember 2023 11:03am Anemia of chronic renal failure, stage 4 (severe) acute Novemb er 2023 2:19pm 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 June 29, 024 2:19pm Hypophosphatemia acute June 29, 2024 [...] kidney dise ase (CKD) deleted June 29 2 024 2:19pm [facility] Work Phone: 1(904) 831-426009-03-2024 Evaluation + Plan note Diagnostic Tests Pending * Urine Culture 04/19/24 [facility] 06-19-2024 Note [id number] [facility] 01-28-2024 Hospital Discharge instructions Patient Education 01/28/2024 [...] including vitamins, herbs, eye drops, creams, and yfjy-fhy-mstzdpr medicines. Any problems you or family members [...] provider tells you to take them. Taking vkof-uzf-dgylati medicines, vitamins, herbs, and supplements. General instructions [...] provider. Document Revised: 03/08/2021 Document Reviewed: 03/08/2021 Pipewise Patient Education 2022 [employer]. Follow Up Care 09/25/2023 15:44:21 With:Diego RICKS, OUSMANE Bell, URO Address: When: Unknown [facility] [id number] Note [id number]24 Progress note Author Price Crain [facility] January 22, 2024 10:20am Note Date/Time January 22, 2024 10:20 am [facility] [address] [place] [address] Nephrology Progress Note Signed Patient: Patsy Cunningham MR#: [id number] : 1945 Acct:[id number] Age/Sex: 78 / M Adm Date: 4 Loc: Room: [address] [place] [address] Type: ADM IN Attending Dr: Clarence Miller [...] 81 Mg Tablet.) 81 mg PO DAILY [facility] Stop: 01/19/25 08:59 Last Admin: 01/22/24 08:45 Dose: 81 mg Atorvastatin Calcium (Atorvastatin 20 Mg Tablet) 20 mg PO DAILY [facility] Stop: 01/19/25 08:59 Last Admin: 01/22/24 08:45 Dose: 20 mg Docusate Sodium (Docusate 100 Mg Capsule) 100 mg PO DAILY [facility] Stop: 01/19/25 08:59 Last Admin: 01/22/24 08:46 Dose: 100 mg Famotidine (Famotidine 20 Mg Tablet) 20 mg PO DAILY [facility] Stop: 01/19/25 08:59 Last Admin: 01/22/24 08:46 Dose: 20 mg Heparin Sodium (Porcine) (Heparin 5,000 Unit/Ml Vial) 5,000 unit SUBCUT Q12HR [facility] Stop: 01/20/25 08:59 Last Admin: 01/22/24 08:46 Dose: 5,000 unit Lactated Ringer's (Lactated Ringers) 1,000 mls @ 100 mls/hr IV .Q10H [facility] Stop: 01/18/25 19:44 Last Admin: 01/22/24 02:31 Dose: 100 mls/hr Ceftriaxone Sodium (Rocephin) 2 gm in 50 mls @ 100 mls/hr IV Q24H [facility] Last Infusion: 01/21/24 21:32 Dose: Infused Insulin [...] (1,000 Units) Tablet) 50 mcg PO DAILY [facility] Stop: 01/19/25 08:59 Last Admin: 01/22/24 08:46 [...] signed by Price Crain MD> 01/22/24 1020 [facility] Work Phone: 1(935) 117-600306-06-2024 Consult note Author Price Crain [facility] January 21, 2024 12:47pm Note Date/Time January 21, 2024 12:42 pm [facility] [address] [place] [address] Nephrology Consult Note Signed Patient: Patsy Cunningham MR#: [id number] : 1945 Acct:[id number] Age/Sex: 78 / M Adm Date: 4 Loc: Room: [address] [place] [address] Type: ADM IN Attending Dr: Clarence Miller DO Copies to: MD Clarence Ashton DO Richard R Keller, MD~ Providers Consult Date: 01/21/24 Requesting Provider: Clarence Miller DO Primary Care Provider: Helen Heath MD [facility] Reason for Consult: Acute kidney injury on [...] systems: 12 system review is negative today [facility] Medical History (Updated 01/19/24 @ 21:16 by [...] 5,000 Unit/Ml Vial) 5,000 unit SUBCUT Q12HR [facility] Stop: 01/20/25 08:59 Last Admin: 01/21/24 09:19 Dose: 5,000 unit Lactated Ringer's (Lactated Ringers) 1,000 mls @ 100 mls/hr IV .Q10H [facility] Stop: 01/18/25 19:44 Last Admin: 01/21/24 05:17 Dose: 100 mls/hr Ceftriaxone Sodium (Rocephin) 2 gm in 50 mls @ 100 mls/hr IV Q24H [facility] Last Infusion: 01/20/24 20:49 Dose: Infused Insulin Aspart (Insulin Aspart 300 Units/3 Ml Insuln.Pen) 8 units SUBCUT TID.ACSCH Stop: 01/19/25 07:29 Last Admin: 01/21/24 08:42 Dose: 8 units Insulin Glargine (Insulin Glargine 300 Units/3 Ml Insuln.Pen) 45 units SUBCUT QHS [facility] Stop: 01/18/25 21:59 Last Admin: 01/20/24 22:21 [...] (1,000 Units) Tablet) 50 mcg PO DAILY [facility] Stop: 01/19/25 08:59 Last Admin: 01/21/24 08:10 [...] Gary Castellano M.D.01/20/2024 7:01 PM Dictation Location: [place] [address] Any impression(s) listed above is documentation that [...] <Electronically signed by Price Crain MD> 01/21/24 1242 [facility] Work Phone: 1([phone]) 580-372506-06-2024 Progress note Author Clarence Miller [facility] January 21, 2024 11:02am Note Date/Time January 21, 2024 10:48 am [facility] [address] [place] [address] Hospitalist Progress Note Signed Patient: Patsy Cunningham MR#: [id number] : 1945 Acct:[id number] Age/Sex: 78 / M Adm Date: 4 Loc: Room: [address] [place] [address] Type: ADM IN Attending Dr: Clarence Miller [...] that including a UroLift procedure, TURP at [facility] July 2022, indwelling Bnod catheter, multiple kidney stones recurrent UTIs and [...] <Electronically signed by Clarence Miller DO> 01/21/24 5090 [facility] Work Phone: 1(993) 806-482406-05-2024 Progress note Author Clarence Miller [facility] January 20, 2024 4:33pm Note Date/Time January 20, 2024 4:19p m [facility] [address] [place] [address] Hospitalist Progress Note Signed Patient: Patsy Cunningham MR#: [id number] : 1945 Acct:[id number] Age/Sex: 78 / M Adm Date: 4 Loc: Room: [address] [place] [address] Type: ADM IN Attending Dr: Clarence Miller [...] <Electronically signed by Clarence Miller DO> 01/20/24 8851 [facility] Work Phone: 1(888) 976-910006-05-2024 History and physical note Author Clarence iMller [facility] January 20, 2024 10:25am Note Date/Time January 19, 2024 6:38p m [facility] [address] [place] [address] Hospitalist H&P Signed Patient: Patsy Cunningham MR#: [id number] : 1945 Acct:[id number] Age/Sex: 78 / M Adm Date: 4 Loc: Room: [address] [place] [address] Type: ADM IN Attending Dr: Clarence Miller DO Copies to: DO Helen Noel MD~ HPI DATE OF EXAMINATION: 01/19/24 CHIEF COMPLAINT: Weakness [...] cultures weresent. [facility]TI andacute kidney injury. [facility] patient is calm appearing in [...] negative unless noted below or in HPI [facility] Medical History (Updated 01/19/24 @ 21:16 by [...] 10/26/23 [History Confirmed 01/19/24] iron bis glycinate alshon 28 mg iron-vit C 60 mg-FA 400 [...] % (Auto) 6.9 % (.) 01/19/24 14:53 [place] % (Auto) 7.0 % (.) 01/19/24 14:53 Eos % (Auto) 2.0 % (.) 01/19/24 14:53 Baso % (Auto) 0.3 % (.) 01/19/24 14:53 Nucleat RBC Rel Count 0.0 /100 WBC (0-0.5) 01/19/24 14:53 Neut # (Auto) 9.3 x10E3/uL (1.8-7.7) H 01/19/24 14:53 Lymph # (Auto) 0.8 x10E3/uL (1.00-4.8) L 01/19/24 14:53 [place] # (Auto) 0.8 x10E3/uL (0.0-0.8) 01/19/24 14:53 [...] 3rd Generation Cancelled 01/19/24 14:53 Urine Color [place] (Yellow) A 01/19/24 15:05 Urine Appearance Turbid (Clear) A 01/19/24 15:05 Urine pH 6.0 (5.0-9.0) 01/19/24 15:05 Ur Specific [place] 1.013 (1.001-1.030) 01/19/24 15:05 Urine Protein 200 [...] <Electronically signed by Clarence Miller DO> 01/20/24 1029 [facility] Work Phone: 1(618) 711-267912-06-2023 Hospital Discharge instructions Patient Education 07/22/2023 10:06:20 [...] Follow these instructions at home: Medicines Take vrzw-zwx-yemgnnb and prescription medicines only as told by [...] actions to prevent or treat constipation: ?Take fdjt-yxo-yyxvctk or prescription medicines. ?Eat foods that are [...] last for up to 1 week. Take zcqk-hqe-jbqonup and prescription medicines only as told by [...] provider. Document Revised: 09/08/2022 Document Reviewed: 09/08/2022 Pipewise Patient Education 2022 [employer] 07/22/2023 10:06:01 Suprapubic Catheter Replacement Suprapubic [...] and water are not available, use hand cray fishing hand. Disconnect the bag from the catheter and immediately attach a new bag to the catheter. Empty the used bag completely. Clean the used bag according to the resourcing advisor's instructions, or as told by your health care provider. Let the bag dry completely, and put it in a clean plastic bag before storing it. General instructions Always wash your hands before and after caring for your catheter and collection bag. Use soap and water. If soap and water are not available, use hand cray fishing hand. Always make sure there are no leaks [...] provider. Document Revised: 06/10/2022 Document Reviewed: 06/10/2022 Pipewise Patient Education 2022 [employer]. Follow Up Care 07/02/2023 11:48:56 With:Diego RICKS, Orquidea Taylor, URL, URO Address: [address] [place] [address]- [phone] When: Unknown Comments:SPT/R stent exchange with 100u of Botox in Sep 2023 [facility] 10-12-2023 Evaluation + Plan note Diagnostic Tests Pending * Urine Culture 05/28/23 [facility]09-29-2023 Hospital Discharge instructions Patient Education 05/15/2023 16:14:46 [...] your health care provider. General instructions Take loma-uhw-ujzzbrc and prescription medicines only as told by [...] provider. Document Revised: 04/22/2021 Document Reviewed: 04/22/2021 Pipewise Patient Education 2022 [employer]. Follow Up Care 04/17/2023 11:27:09 With:Diego RICKS, OUSMANE Bell, URO Address: [address] [place] [address] [phone] When: Unknown Comments:-KUB-sched cysto/R stent exchange and L ESWL and SPT change [facility] 06-30-2023 Hospital Discharge instructions Patient Education 02/13/2023 [...] include: ?8 oz (237 mL) of milk, bgpleik-cxrlvgnhdwxt-saudl milk, and calcium- fortifiedfruit juice. Calcium-fortified means [...] ?Spinach (cooked), rhubarb, beets, sweet potatoes, and Bulgarian chard. ?Peanuts. ?Potato chips, cook islander fries, and baked potatoes with skin on. ?Nuts and nut products. ?Chocolate. If you regularly take a diuretic medicine, make sure to eat at least 1 or 2 servings of fruits or vegetables that are high in potassium each day. These include: ?Avocado. ?Banana. ?[place], prune, carrot, or tomato juice. ?Baked potato. [...] magnesium, fish oil, or vitamin B6. Take bdzg-qzv-hpdbsoe and prescription medicines only as told by [...] Casseroles. Pizza. Lasagna. Frozen meals. Potato chips. Mexican fries. The items listed above may not [...] provider. Document Revised: 04/14/2022 Document Reviewed: 04/14/2022 Pipewise Patient Education 2022 [employer]. Follow Up Care 01/16/2023 10:55:40 With:Diego RICKS, OUSMANE Bell, URO Address: When: Unknown [facility] 06-28-2023 Instructions* Patient Instructions* Yocasta Garcias APRN.OIL PROGRAM COMPLIANCE SPECIALIST - 02/11/2023 1:04 PM EDT PATIENT PREOPERATIVE INSTRUCTIONS Jessica Carreon MD has scheduled you for your procedure at this surgery center: [facility]: [phone] --[address] [place] [address]. Please read below carefully for your personalized [...] Procedures: - YOU MUST HAVE A RESPONSIBLE FINANCE ACCOUNTING INTERNSHIP TAKE YOU HOME. A MARINE PHOTOGRAPHER OR SNUBBER CANNOT BE MADE A RESPONSIBLE FINANCE ACCOUNTING INTERNSHIP. - We recommend that a responsible person [...] Advance Directive, please fax a copy to [phone] or email to for it to be [...] day. Yocasta Garcias APRN.WILFREDO documented in this [facility] History and physical note * Yocasta Garcias [...] fevers. Neuro: No history of TIA's, stroke, APPLIQUE SEWER tumor, impaired sensorium, hemiplegia, paraplegia or quadraplegia. No neurological symptoms or problems. Respiratory: Positive for Tobacco Use Former Smoker , History of RUDY s/p Uvulectomy Negative for Nohistory of current cough or dyspnea, or pneumonia in the past 6 weeks. No history of respiratory/pulmonary symptoms or problems Cardiovascular: Positive for: HLD, Hypertension no history of angina, CHF, OR, cardiac surgery or stents. Denies rest pain, [...] for today's visit: CBC auto differential Order: [id number] Component Ref Range & Units 6 d [...] BASOPHILS 0.0 - 0.2 10*3/uL 0.0 Resulting [facility] Specimen Collected: 02/05/23 12:42 PM Last Resulted: 02/05/23 1:22 PM Received From: [facility] [email or web address] Result Received: 02/11/23 12:13 PM Comprehensive metabolic panel Order: [id number] Component Ref Range & Units 6 d [...] CREATININE CLR [facility] 51.98 Resulting Agency [facility] Specimen Collected: 02/05/23 12:42 PM Last Resulted: 02/05/23 4:22 PM Received From: [employer] Result Received: 02/11/23 12:13 PM Echocardiogram Narrative Performed by [facility], [address] [place] [address] and TRANSTHORACIC ECHOCARDIOGRAM REPORT Patient Name: PATSY CUNNINGHAM Reading Physician: [id number] Lj Diallo MD Study Date: 08/08/2020 Referring Physician: Zofia Tripp MD MRN/PID: [id number] PCP: Accession/Order#: [id number] Department Location: [place] [address] Date of : 1945 Fellow: Gender: M Nurse: Admit Date: 07/23/2020 Style Advisor: Sharifa Porter [facility] Admission Status: Inpatient - Additional Staff: Priority discharge Height: 172.72 cm CC Report to: [address] [place] [address] Weight: 83.92 kg Study Type: Echocardiogram BSA: 1.98 m2 Blood Pressure: 143 /64 mmHg Diagnosis/ICD: E45-Zdwksyvalzzq, valve unspecified Indication: Vegetation Procedure/CPT: Echo Complete w Full Doppler-[id number] Patient History: Pertinent Stage III IgG [place] Multiple Myeloma, DM2, HTN, GERD, History: Neuropathy. 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 Prostate cancer (HCC) Assessment: history of prostate CA s/p TURP No chemo or radiation Iron deficiency anemia Assessment: Following with Hematology Receiving Aranesp injections twice a month Rheumatoid arthritis ([facility]) Assessment: using OTC pain medication [...] 2023 TIME: 12:30 PM documented in this encounterLuther[facility]06-09-2023 Progress note Author Brook Huddleston [facility] January 23, 2023 8:59am Note Date/Time January 22, 2023 2:34p m [facility] [place] at [address] [address] Hem/Onc Follow Up Note - OP Signed Patient: Patsy Cunningham MR#: [id number] : 1945 Acct:[id number] Age/Sex: 77 / M Type: REG RCR [...] an upcoming urodynamics procedure with his urologist [facility] next week. He has persistent unchanged fatigue from prior visits. We had requested addition of Aranesp 200 mcg every 2weeks to improve his hemoglobin and fatigue: His is concerned that they receive Dilaudid is not covering and we are checking with our financial coordinator as we proceed with approved. B12 and [...] TURP with Dr. Cortez of urology at [facility] with some improvement of his urinary incontinence [...] month follow up; not much change management the past 1 month - of note, [...] if symptoms improve. One month followup with [facility] to review labs and symptoms. He also has followup with Dr. Hall in one week and will inform him of plan for one month off Revlimid. He also may seek Urology second opinion. 05/23/2022: Noted to have Urolift procedure at [facility] last month, noted increased post-op pain that [...] of kidney stone by Dr. Seals at [place] on 01/14/2022 without complications. Sent off Revlimid [...] protein electrophoresis or serum or urine immunofixation. [place]/lambda light chain ratio continues to decline to [...] He underwent a painful bone marrow by [facility] with Dr. Hall with nondiagnostic specimen. Dr. [...] 20 he was treated for UTI at [facility] ER, thenadmitted August 24 to [place] with dehydration and urosepsis with discharge August 29. 09/05/[address] Heath for continued antibiotics with Bactrim DS. Urine also returned positive for candidiasis and he was treated with fluconazole daily. He stopped his hydralazine and Lasix. --09/17/2021: He returned for labs and skeletal survey at [facility] and his potassium on blood work was markedly elevated. We contacted him and advised ER evaluation at [facility]. His potassium returned at 7.3 and he [...] due for follow-up with Dr. Hall at [facility] hematology in late October for 1 year [...] followup after D86 bone marrow biopsy at [facility] on 10/18/2020. No evidence of MRD--0.5% plasma cells andno clonal plasma cells suggestive of residual myeloma. Tolerating maintenance Revlimid 5mg daily well. No bone pain and normal renal function--Dr. Vincent hasreleased for annual nephrology followup. He is fully vaccinated for ryqeelddvcq28 and I contacted Dr. Hall for coordination [...] completed all of his pretransplant evaluation at [facility] including cardiology visit 11 9 which showed ejection fraction 60%. I have contacted Dr. Hall who noted that today will be his last day of Velcade and we will hold his daratumumab. He was to have a COVID-19 teston 07/11/2020 for planned stem cell collection 07/17 and transplant on 07/23. I clarified with the staff at [facility] this this may be performed at [facility] and forwarded to them. His neuropathy in [...] has remarkably improved (>90% reduction past month). [place] light chains decreased from 12,000 to 42. [...] marijuana and would discuss this with his resident associate whetherthis would interfere with dialysis. We will also follow closely for cytopenias and reviewed infectious precautions. He has a son from [place] who plans to visit on Thursday and [...] but he may address this with our [facility] nutrition team. He will also receivechemotherapy class with our nurses in the infusion center. PRELIMINARY HISTORY (from initial consult 03/08/2020): This is a now 77-year-old male who was transferred from [place] emergency room by [facility] due to critical [...] day 0 autologous stem cell transplant 07/25/2020at [facility]. 11/26/2020: Follow-up bone marrow aspiration and biopsy 10/18/2020 for MRD evaluation shows hypocellular marrow with 0.5% plasma cells, no clonal population by flow cytometry but 0.03% kappa light chain skewing. Started Revlimid 5 mg daily for maintenance therapy early October 2020. Nondiagnostic bone marrow for MRD in spring 2021 at . Planned follow-up bone marrow biopsy for MRD at [facility] fall 2021. -- 02/05/2022: Revlimid on hold [...] TURP with Dr. Cortez of urology at [place] 08/27/2022. 08/2022: Added Aranesp 200 mcg subcu [...] followed by Dr. Seals--recent ESWL 01/14/2022 at [place]. Scheduled for urodynamic study at [facility] in mid January. ENDOCRINE: Negative for cold [...] % (Auto) 72.9, Lymph % (Auto) 17.1, [place] % (Auto) 6.4, Eos % (Auto) 3.3, Baso % (Auto) 0.3, Nucleat RBC Rel Count 0.0, Neut # (Auto) 3.6, Lymph # (Auto) 0.9 L, [place] # (Auto) 0.3, Eos # (Auto) 0.2, [...] ULTRASOUNDSTUDY. 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 11/26/2020: Followup of [facility] end of therapy bone marrow biopsy [...] be scheduled for MRD bone marrow at [facility] interventional radiology in April 2022, then follow-up with me with review of myeloma labs 3 months after this procedure. He still has undetectablemonoclonal spike and normal kappa/lambda light chain ratio on most recent labs. Renal function is improving since ESWL at [place] in late December. 05/23/2022: No new issues, [...] symptoms improved at one month followup with [facility], he will followup with me in one month with CBC, CMP, SPEP for monoclonal spike and kappa/lambda light chain ratio. 07/28/2022: Patsy is here for interval 1 month follow up; not much change management the past 1 month - of note, [...] immunofixation, quantitative immunoglobulins, and kappa/lambda light chains. Wewill also coordinate Clonoseq assay of the peripheral [...] [facility]. We [...] for MRD. Repeat MRD bone marrow at [facility] in 3 months because spring 2021 bone [...] month follow up; not much change management the past 1 month - of note, [...] for coordination of care (as documented) and sobr-gx-zqsl counseling of patient and/or family. Dictated By: Brook Huddleston MD DD/ [id number] Signed By: <Electronically signed by MD Brook Huddleston> 01/23/23 0859 [facility] Work Phone: 1(981) 346-157906-05-2023 History of Present illness Narrative* Samir Aparicio MD - 01/19/2023 1:30 PM EDT VIRTUAL VISIT FOLLOW UP PATIENT: Patsy Cunningham [id number] 01/19/2023 I have communicated my name and active licensure. The patient's identity and physical location wereverified at the time of this visit. 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 This is a virtual visit using [employer] video visit. It required patient-provider interaction for [...] prostate cancer identified - on active surveillance ([place] 3+4, chips involved. PSA 1.5) 10/2022- UDS at [facility]:42ml voided, Qmax 5ml/s, maximum detrusor recording 14 (unclear if this is w permission to void or if this represents poor compliance). 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 Carreon Per Dr. Taty Felic[place]o 01/07/23 visit- recommendation for Prostate Ca: - [...] which included preparing to see the patient, uzyy-or-mvum patient care, completing clinical documentation, obtaining and/or reviewing separately obtained history, performing a medically appropriate examination, and counseling and educating the patient/family/caregiver. Samir Aparicio MD Urologic Staff [facility]* Encounter Date Diagnosis Assessment Notes Treatment Notes Treatment Clinical Notes December, Hypophosphatemia (ICD-10 - E83.39) December, Hypertensive chronic kidney disease w stg 1-4/unsp chr kdny (ICD-10 - I12.9) [employer] Other [id number] Evaluation note* Encounter Date Diagnosis Assessment Notes [...] supplement. will re check Phos next visit [employer] Other 05-05-2023 Hospital Discharge instructions Patient Education [...] transplant. Follow these instructions at home: Take hfhn-xhj-roqvrok and prescription medicines only as told by [...] provider. Document Revised: 11/20/2020 Document Reviewed: 11/20/2020 [employer] Patient Education 2022 [employer]. Follow Up Care 12/11/2022 13:21:04 With:Diego RICKS, OUSMANE Bell, URO Address: When: Unknown [facility] Marcela 04-21-2023 Hospital Discharge instructions Patient Education 12/05/2022 [...] under a microscope. This is called the [place] score and the total score can range from 6 10, indicating how likely it is that the cancer will spread (metastasize) to other parts of the body. The higher the score, the greater thelikelihood that the cancer will spread. Selene 6 or lower: This indicates that the cancer cells look similar to normal prostate cells (well differentiated). Pardeeville 7: This indicates that the cancer cells look somewhat similar to normal prostate cells (moderately differentiated). [place] 8, 9, or 10: This indicates that [...] stress of having cancer. General instructions Take zmdk-siq-dtrmbqw and prescription medicines only as told by your health care provider. If you have to go to the hospital, notify your cancer specialist (oncologist). Keep all follow-up visits. This is important. Where to find more information [employer] [employer]: www.cancer.org [place] [employer] Clinical Oncology: www.cancer.net National Cancer [place]: www.cancer.gov Contact a health care provider if: [...] provider. Document Revised: 10/30/2021 Document Reviewed: 10/30/2021 [employer] Patient Education 2022 [employer]. Follow Up Care 12/03/2022 13:58:34 With:Diego RICKS, OUSMANE Bell, URO Address: [address] [place] [phone] When: Unknown [facility] Marcela 03-20-2023 Hospital Discharge instructions Patient Education 11/03/2022 [...] who: Are older than age 65. Are -Gambian. Are obese. Have a family history of [...] cells. Follow these instructions at home: Take lvow-swd-huwnwjn and prescription medicines only as told by [...] 08/03/2006 Document Revised: 07/16/2018 Document Reviewed: 04/13/2017 [employer] Patient Education 2020 [employer]. Follow Up Care 10/21/2022 07:54:56 With:Diego RICKS, OUSMANE Bell, URO Address: When: Unknown [facility] 03-02-2023 Hospital Discharge instructions Patient Education 10/16/2022 [...] transplant. Follow these instructions at home: Take cmzy-kkd-waxalli and prescription medicines only as told by [...] 05/30/2008 Document Revised: 08/14/2018 Document Reviewed: 08/14/2018 [employer] Patient Education 2020 [employer]. Follow Up Care 10/15/2022 08:06:04 With:Diego RICKS, OUSMANE Bell, URO Address: When: Unknown [facility] 02-01-2023 Progress note Author Brook Huddleston [facility] September 17, 2022 1:35pm Note Date/Time September 03, 2022 8 :57am [facility] [place] [address] Hem/Onc Follow Up Note - OP Signed with Addenda Patient: Patsy Cunningham MR#: [id number] : 1945 Acct:[id number] Age/Sex: 77 / M Type: REG RCR [...] TURP with Dr. Cortez of urology at [facility] with some improvement of his urinary incontinence [...] month follow up; not much change management the past 1 month - of note, [...] if symptoms improve. One month followup with [facility] to review labs and symptoms. He also has followup with Dr. Hall in one week and will inform him of plan for one month off Revlimid. He also may seek Urology second opinion. 05/23/2022: Noted to have Urolift procedure at [facility] last month, noted increased post-op pain that [...] of kidney stone by Dr. Seals at [place] on 01/14/2022 without complications. Sent off Revlimid [...] protein electrophoresis or serum or urine immunofixation. [place]/lambda light chain ratio continues to decline to [...] He underwent a painful bone marrow by [facility] with Dr. Hall with nondiagnostic specimen. Dr. [...] 20 he was treated for UTI at [facility] ER, thenadmitted August 24 to [place] with dehydration and urosepsis with discharge August 29. 09/05/[address] Heath for continued antibiotics with Bactrim DS. Urine also returned positive for candidiasis and he was treated with fluconazole daily. He stopped his hydralazine and Lasix. --09/17/2021: He returned for labs and skeletal survey at [facility] and his potassium on blood work was markedly elevated. We contacted him and advised ER evaluation at [facility]. His potassium returned at 7.3 and he [...] followup after D86 bone marrow biopsy at [facility] on 10/18/2020. No evidence of MRD--0.5% plasma cells andno clonal plasma cells suggestive of residual myeloma. Tolerating maintenance Revlimid 5mg daily well. No bone pain and normal renal function--Dr. Vincent hasreleased for annual nephrology followup. He is fully vaccinated for [id number] and I contacted Dr. Hall for coordination [...] completed all of his pretransplant evaluation at [facility] including cardiology visit 11 which showed ejection fraction 60%. I have contacted Dr. Hall who noted that today will be his last day of Velcadeand we will hold his daratumumab. He was to have a COVID-19 test on 07/11/2020 for planned stem cell collection 07/17 and transplant on 07/23. I clarified with the staff at [facility] this this may be performed at [facility] and forwarded to them. His neuropathy [...] has remarkably improved (>90% reduction past month). [place] light chains decreased from 12,000 to 42. [...] marijuana and would discuss this with his resident associate whetherthis would interfere with dialysis. We will also follow closely for cytopenias and reviewed infectious precautions. He has a son from [place] who plans to visit on Thursday and [...] now 77-year-old male who was transferred from [place] emergency room by [facility] due to critical potassium 8.7 with [...] to be coordinated with nursing staffdue to [facility]- visitor restriction policy. - Summary of [...] day 0 autologous stem cell transplant 07/25/2020at [facility]. 11/26/2020: Follow-up bone marrow aspiration and biopsy 10/18/2020 for MRD evaluation shows hypocellular marrow with 0.5% plasma cells, no clonal population by flow cytometry but 0.03% kappa light chain skewing. Started Revlimid 5 mg daily for maintenance therapy early October 2020. Nondiagnostic bone marrow for MRD in spring 2021 at . Planned follow-up bone marrow biopsy for MRD at [facility] fall 2021. -- 02/05/2022: Revlimid on hold [...] TURP with Dr. Cortez of urology at [place] 08/27/2022. ROS Details: All systems reviewed & [...] followed by Dr. Seals--recent ESWL 01/14/2022 at [place]. ENDOCRINE: Negative for cold intolerance and heat [...] Negative for environmental allergies and food allergies. [facility] - History Attestation statement: The following information [...] October 2021, repeat MRD bone marrow at [facility] April 2022, MRD aspirate sent 05/23/2022--Clonoseq returned [...] 0 scheduled 07/23/2020. His next follow-up with nm will be in about 4 months after he is completed day 100 transplant follow-up. He may return sooner as needed. 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 Melphalan 100mg/m2 + ASCT Day 0 07/25/2020. 11/26/2020: Followup of [facility] end of therapy bone marrow biopsy [...] be scheduled for MRD bone marrow at [facility] interventional radiology in April 2022, then follow-up with me with review of myeloma labs 3 months after this procedure. He still has undetectablemonoclonal spike and normal kappa/lambda light chain ratio on most recent labs. Renal function is improving since ESWL at [place] in late December. 05/23/2022: No new issues, [...] symptoms improved at one month followup with [facility], he will followup with me in one month with CBC, CMP, SPEP for monoclonal spike and kappa/lambda light chain ratio. 07/28/2022: Patsy is here for interval 1 month follow up; not much change management the past 1 month - of note, [...] for MRD. Repeat MRD bone marrow at [facility] in 3 months because spring 2021 bone [...] month follow up; not much change management the past 1 month - of note, [...] for coordination of care (as documented) and rfzz-ip-jieb counseling of patient and/or family. Dictated By: Brook Huddleston MD DD/ [id number] Signed By: <Electronically signed by MD Brook Huddleston> 09/03/2225 [facility] Work Phone: [phone]) 215-444101-12-2023 Hospital Discharge instructions Follow Up Care 08/28/2022 09:22:13 With:Diego RICKS, OUSMANE Bell, URO Address: When:09/18/2022 11:27:00 Comments:Review TURP path [facility] 01-09-2023 Evaluation + Plan note Diagnostic Tests Pending * Urine Culture 08/25/22 [facility]12-12-2022 Progress note Author Rosie Chew [facility] July 28, 2022 10:58am Note Date/Time July 28, 2022 10:45am [facility] [address] [address] Hem/Onc Follow Up Note - OP Signed Patient: Patsy Cunningham MR#: [id number] : 1945 Acct:[id number] Age/Sex: 77 / M Type: REG RCR Copies to: Helen Heath MD~ Subjective Date/Time of Service: Date of Service: 07/28/2022 Time of Service: 10:44 Chief Complaint: Patient is here today for one month follow up visit and go overlabs HPI: 07/28/2022: Patsy is here for interval 1 month follow up; not much change management the past 1 month - of note, [...] if symptoms improve. One month followup with [facility] to review labs and symptoms. He also has followup with Dr. Hall in one week and will inform him of plan for one month off Revlimid. He also may seek Urology second opinion. 05/23/2022: Noted to have Urolift procedure at [facility] last month, noted increased post-op pain that [...] of kidney stone by Dr. Seals at [place] on 01/14/2022 without complications. Sent off Revlimid [...] protein electrophoresis or serum or urine immunofixation. [place]/lambda light chain ratio continues to decline to [...] He underwent a painful bone marrow by [facility] with Dr. Hall with nondiagnostic specimen. Dr. [...] 20 he was treated for UTI at [facility] ER, thenadmitted August 24 to [place] with dehydration and urosepsis with discharge August 29. 09/05/[address] Heath for continued antibiotics with Bactrim DS. Urine also returned positive for candidiasis and he was treated with fluconazole daily. He stopped his hydralazine and Lasix. --09/17/2021: He returned for labs and skeletal survey at [facility] and his potassium on blood work was markedly elevated. We contacted him and advised ER evaluation at [facility]. His potassium returned at 7.3 and he [...] due for follow-up with Dr. Hall at [facility] hematology in late October for 1 year [...] followup after D86 bone marrow biopsy at [facility] on 10/18/2020. No evidence of MRD--0.5% plasma cells and no clonal plasma cells suggestive of residual myeloma. Tolerating maintenance Revlimid 5mg daily well. No bone pain and normal renal function--Dr. Vincent hasreleased for annual nephrology followup. He is fully vaccinated for [id number] and I contacted Dr. Hall for coordination [...] completed all of his pretransplant evaluation at [facility] including cardiology visit 11 9 which showed ejection fraction 60%. I have contacted Dr. Hall who noted that today will be his last day of Velcade and we will hold his daratumumab. He was to have a COVID-19 teston 07/11/2020 for planned stem cell collection 07/17 and transplant on 07/23. I clarified with the staff at [facility] this this may be performed at [facility] and forwarded to them. His neuropathy in [...] has remarkably improved (>90% reduction past month). [place] light chains decreased from 12,000 to 42. [...] marijuana and would discuss this with his resident associate whetherthis would interfere with dialysis. We will also follow closely for cytopenias and reviewed infectious precautions. He has a son from [place] who plans to visit on Thursday and [...] now 77-year-old male who was transferred from [place] emergency room by [facility] due to critical [...] to be coordinated with nursing [facility]due to [facility]. - Summary of Therapies [...] day 0 autologous stem cell transplant 07/25/2020at [facility]. 11/26/2020: Follow-up bone marrow aspiration and biopsy 10/18/2020 for MRD evaluation shows hypocellular marrow with 0.5% plasma cells, no clonal population by flow cytometry but 0.03% kappa light chain skewing. Started Revlimid 5 mg daily for maintenance therapy early October 2020. Nondiagnostic bone marrow for MRD in spring 2021 at . Planned follow-up bone marrow biopsy for MRD at [facility] fall 2021. -- 02/05/2022: Revlimid on hold [...] followed by Dr. Seals--recent ESWL 01/14/2022 at [place]. ENDOCRINE: Negative for cold intolerance and heat [...] Negative for environmental allergies and food allergies. [facility] - Medical History Medical History: Medical History [...] 35.7, U Random Total Protein 95.7, U Gzkwa-4-Fjtebbjt (%) 6.5, U Random n-7-Tmdywdcx % 18.3, U Random b-Globulin % 20.8, U Random Gamma Glob % 18.6, U Random M-Anselmo (%) Comment:, Urine Random PEP Note 07/21/22 13:13: Serum Total Protein 5.9 L, Albumin (Send Out) 2.9, Globulin (PEP) 3.0, Albumin/Globulin (PEP) 1.0, Azujb-9-Khfnkevgn 0.4, Kydae-2-Vwiisahnf 1.0, Beta Globulins 0.8, Gamma Globulins 0.8, M-Anselmo Comment:, PEP Note , IgG 905, IgA 208, IgM 24, Free [place] LC, Quant 39.4 H, Free Lambda LC, Quant 24.3, Free [place]/Lambda Ratio 1.62 07/21/22 13:13: PHA Creatinine Clear [...] H, MCHC 34.0, RDW 17.1 H, Plt Xcdeq577 L, MPV 8.3, Neut % (Auto) 70.5, Lymph % (Auto) 13.1, [place] % (Auto) 13.2, Eos% (Auto) 3.0, Baso % (Auto) 0.2, Nucleat RBC Rel Count 0.1, Neut # (Auto) 2.7, Lymph # (Auto) 0.5 L, [place] # (Auto) 0.5, Eos # (Auto) 0.1, Baso # (Auto) 0.0 Assessment and Plan - TNM Staging Staging: 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 His next follow-up with nm will be in about 4 months after he is completed day 100 transplant follow-up. He may return sooner as needed. 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 Melphalan 100mg/m2 + ASCT Day 0 07/25/2020. 11/26/2020: Followup of [facility] end of therapy bone marrow biopsy [...] He will continue to follow with Dr. Backhaus. He still has no M spike on [...] be scheduled for MRD bone marrow at [facility] interventional radiology in April 2022, then follow-up with me with review of myeloma labs 3 months after this procedure. He still has undetectablemonoclonal spike and normal kappa/lambda light chain ratio on most recent labs. Renal function is improving since ESWL at [place] in late December. 05/23/2022: No new issues, [...] symptoms improved at one month followup with [facility], he will followup with me in one month with CBC, CMP, SPEP for monoclonal spike and kappa/lambda light chain ratio. 07/28/2022: Patsy is here for interval 1 month follow up; not much change management the past 1 month - of note, [...] for MRD. Repeat MRD bone marrow at [facility] in 3 months because spring 2021 bone [...] month follow up; not much change management the past 1 month - of note, [...] for coordination of care (as documented) and rail-dx-gjlb counseling of patient and/or family. Dictated By: Rosie Chew APRN DD/ [id number] Signed By: <Electronically signed by JACKIE Chew> 07/28/22 1058 [facility] Work Phone: 1(393) 387-175411-21-2022 Hospital Discharge instructions Patient Education 07/07/2022 18:01:00 [...] Address:Unknown When: Unknown Comments:Bladder US, schedule TURP [facility]11-21-2022 Evaluation + Plan noteExtracted from: Title:[facility] Clinic Note Author:Orquidea Cortez MD . Date:07/07/22 [...] Date:08/06/2022 10:00:00 AM Scheduled Provider:Orquidea Cortez MD Location:[facility] Appointment Type:URO Office Visit [facility]11-18-2022 Hospital Discharge instructions Patient Education 07/04/2022 [...] urethra. Follow these instructions at home: Take lwvy-tyl-qiwnmlb and prescription medicines only as told by [...] 08/03/2006 Document Revised: 06/28/2019 Document Reviewed: 09/07/2017 [employer] Patient Education [employer]. Follow Up Care 07/01/2022 09:13:44 With:Diego RICKS, OUSMANE Bell, URO Address: When: Unknown Comments:Schedule cysto [facility] 11-12-2022 Progress note Author Brook Huddleston [facility] June 28, 2022 2:07pm Note Date/Time June 27, 2022 10:23am [facility] [place] [address] Hem/Onc Follow Up Note - OP Signed Patient: Patsy Cunningham MR#: [id number] : 1945 Acct:[id number] Age/Sex: 77 / M Type: REG RCR [...] if symptoms improve. One month followup with [facility] to review labs and symptoms. He also has followup with Dr. Hall in one week and will inform him of plan for one month off Revlimid. He also may seek Urology second opinion. Moderate complexity 30 minute followup visit. 05/23/2022: Noted to have Urolift procedure at [facility] last month, noted increased post-op pain that [...] of kidney stone by Dr. Seals at [place] on 01/14/2022 without complications. Sent off Revlimid [...] protein electrophoresis or serum or urine immunofixation. [place]/lambda light chain ratio continues to decline to [...] He underwent a painful bone marrow by [facility] with Dr. Hall with nondiagnostic specimen. Dr. [...] 20 he was treated for UTI at [facility] ER, thenadmitted August 24 to [place] with dehydration and urosepsis with discharge August 29. 09/05/[address] Heath for continued antibiotics with Bactrim DS. Urine also returned positive for candidiasis and he was treated with fluconazole daily. He stopped his hydralazine and Lasix. --09/17/2021: He returned for labs and skeletal survey at [facility] and his potassium on blood work was markedly elevated. We contacted him and advised ER evaluation at [facility]. His potassium returned at 7.3 and he [...] followup after D86 bone marrow biopsy at [facility] on 10/18/2020. No evidence of MRD--0.5% plasma cells andno clonal plasma cells suggestive of residual myeloma. Tolerating maintenance Revlimid 5mg daily well. No bone pain and normal renal function--Dr. Vincent hasreleased for annual nephrology followup. He is fully vaccinated for [id number] and I contacted Dr. Hall for coordination [...] completed all of his pretransplant evaluation at [facility] including cardiology visit 11 9 which showed ejection fraction 60%. I have contacted Dr. Hall who noted that today will be his last day of Velcade and we will hold his daratumumab. He was to have a COVID-19 teston 07/11/2020 for planned stem cell collection 07/17 and transplant on 07/23. I clarified with the staff at [facility] this this may be performed at [facility] and forwarded to them. His neuropathy in [...] has remarkably improved (>90% reduction past month). [place] light chains decreased from 12,000 to 42. [...] marijuana and would discuss this with his resident associate whetherthis would interfere with dialysis. We will also follow closely for cytopenias and reviewed infectious precautions. He has a son from [place] who plans to visit on Thursday and [...] now 77-year-old male who was transferred from [place] emergency room by [facility] due to critical [...] to be coordinated with nursing staffdue to [facility]-19 visitor restriction policy. - Summary of [...] day 0 autologous stem cell transplant 07/25/2020at [facility]. 11/26/2020: Follow-up bone marrow aspiration and biopsy 10/18/2020 for MRD evaluation shows hypocellular marrow with 0.5% plasma cells, no clonal population by flow cytometry but 0.03% kappa light chain skewing. Started Revlimid 5 mg daily for maintenance therapy early October 2020. Nondiagnostic bone marrow for MRD in spring 2021 at . Planned follow-up bone marrow biopsy for MRD at [facility] fall 2021. -- 02/05/2022: Revlimid on hold [...] followed by Dr. Seals--recent ESWL 01/14/2022 at [place]. ENDOCRINE: Negative for cold intolerance and heat [...] October 2021, repeat MRD bone marrow at [facility] April 2022, MRD aspirate sent 05/23/2022--Clonoseq returned [...] 0 scheduled 07/23/2020. His next follow-up with nm will be in about 4 months after he is completed day 100 transplant follow-up. He may return sooner as needed. 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 Melphalan 100mg/m2 + ASCT Day 0 07/25/2020. 11/26/2020: Followup of [facility] end of therapy bone marrow biopsy [...] be scheduled for MRD bone marrow at [facility] interventional radiology in April 2022, then follow-up with me with review of myeloma labs 3 months after this procedure. He still has undetectablemonoclonal spike and normal kappa/lambda light chain ratio on most recent labs. Renal function is improving since ESWL at [place] in late December. 05/23/2022: No new issues, [...] symptoms improved at one month followup with [facility], he will followup with me in one [...] for MRD. Repeat MRD bone marrow at [facility] in 3 months because spring 2021 bone [...] for coordination of care (as documented) and ppap-zu-kuvx counseling of patient and/or family. Dictated By: Brook Huddleston MD DD/ [id number] Signed By: <Electronically signed by MD Brook Huddleston> 06/28/22 [address] [facility] Work Phone: 1(178) 133-564110-19-2022 Hospital Discharge instructions Patient Education 06/04/2022 11:10:13 Acute Urinary Retention, Male, Fnyr-zh-Argk Acute Urinary Retention, Male Acute urinary retention means that you cannot pee (urinate) at all, or that you pee too little and your bladder is not emptied completely. If it is not treated, it can lead to kidney damage or other serious problems. Follow these instructions at home: Take owwu-fda-uojmhpf and prescription medicines only as told by [...] 01/19/2009 Document Revised: 10/20/2019 Document Reviewed: 09/04/2017 [employer] Patient Education 2020 [employer] Follow Up Care 05/05/2022 11:07:39 With:Diego RICKS, OUSMANE Bell, URO Address: [address] [place] [id number] When:08/04/2022 [facility] 10-08-2022 Progress note Author Brook Huddleston [facility] May 24, 2022 12:25pm Note Date/Time May 23, 2022 11 :15[facility] [place] [id number] Hem/Onc Follow Up Note - OP Signed Patient: Patsy Cunningham MR#: [id number] : 1945 Acct:[id number] Age/Sex: 77 / M Type: REG RCR Copies to: Helen Heath MD~ Subjective Date/Time of Service: Date of Service: 05/23/2022 Time of Service: 11:15 Chief Complaint: Patient is here today for a 4 month follow up visit for light chain nephropathy d/t multiple myeloma and go over bone marrow biopsy results HPI: 05/23/2022: Noted to have Urolift procedure at [facility] last month, noted increased post-op pain that [...] of kidney stone by Dr. Seals at [place] on 01/14/2022 without complications. Sent off Revlimid [...] protein electrophoresis or serum or urine immunofixation. [place]/lambda light chain ratio continues to decline to [...] He underwent a painful bone marrow by [facility] [facility] with Dr. Hall with nondiagnostic specimen. Dr. [...] 20 he was treated for UTI at [facility] ER, thenadmitted August 24 to [place] with dehydration and urosepsis with discharge August 29. 09/05/[address] Heath for continued antibiotics with Bactrim DS. Urine also returned positive for candidiasis and he was treated with fluconazole daily. He stopped his hydralazine and Lasix. --09/17/2021: He returned for labs and skeletal survey at [facility] and his potassium on blood work was markedly elevated. We contacted him and advised ER evaluation at [facility]. His potassium returned at 7.3 and he [...] due for follow-up with Dr. Hall at [facility] hematology in late October for 1 year [...] followup after D86 bone marrow biopsy at [facility] on 10/18/2020. No evidence of MRD--0.5% plasma cells andno clonal plasma cells suggestive of residual myeloma. Tolerating maintenance Revlimid 5mg daily well. No bone pain and normal renal function--Dr. Vincent hasreleased for annual nephrology followup. He is fully vaccinated for [id number] and I contacted Dr. Hall for coordination [...] completed all of his pretransplant evaluation at [facility] including cardiology visit 11 9 which showed ejection fraction 60%. I have contacted Dr. Hall who noted that today will be his last day of Velcade and we will hold his daratumumab. He was to have a COVID-19 teston 07/11/2020 for planned stem cell collection 07/17 and transplant on 07/23. I clarified with the staff at [facility] this this may be performed at [facility] and forwarded to them. His neuropathy in [...] has remarkably improved (>90% reduction past month). [place] light chains decreased from 12,000 to 42. [...] marijuana and would discuss this with his resident associate whetherthis would interfere with dialysis. We will also follow closely for cytopenias and reviewed infectious precautions. He has a son from [place] who plans to visit on Thursday and [...] but he may address this with our [facility] nutrition team. He will also receivechemotherapy class with our nurses in the infusion center. PRELIMINARY HISTORY (from initial consult 03/08/2020): This is a now 77-year-old male who was transferred from [place] emergency room by [employer] due to critical potassium 8.7 with elevated [...] to be coordinated with nursing staffdue to [facility]-19 visitor restriction policy. - Summary of [...] day 0 autologous stem cell transplant 07/25/2020at [facility]. 11/26/2020: Follow-up bone marrow aspiration and biopsy 10/18/2020 for MRD evaluation shows hypocellular marrow with 0.5% plasma cells, no clonal population by flow cytometry but 0.03% kappa light chain skewing. Started Revlimid 5 mg daily for maintenance therapy early October 2020. Nondiagnostic bone marrow for MRD in spring 2021 at . Planned follow-up bone marrow biopsy for MRD at [facility] fall 2021. -- 02/05/2022: Revlimid on hold [...] followed by Dr. Seals--recent ESWL 01/14/2022 at [place]. ENDOCRINE: Negative for cold intolerance and heat [...] October 2021, repeat MRD bone marrow at [facility] April 2022, MRD aspirate sent 05/23/2022 (1) [...] day 0 scheduled 07/23/2020. His next follow-up withnm will be in about 4 months after he is completed day 100 transplant follow-up. He may return sooner as needed. 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 Melphalan 100mg/m2 + ASCT Day 0 07/25/2020. 11/26/2020: Followup of [facility] end of therapy bone marrow biopsy [...] be scheduled for MRD bone marrow at [facility] interventional radiology in April 2022, then follow-up with me with review of myeloma labs 3 months after this procedure. He still has undetectablemonoclonal spike and normal kappa/lambda light chain ratio on most recent labs. Renal function is improving since ESWL at [place] in late December. 05/23/2022: No new issues, [...] for MRD. Repeat MRD bone marrow at [facility] in 3 months because spring 2021 bone [...] for coordination of care (as documented) and wvdr-rj-yhky counseling of patient and/or family. Dictated By: Brook Huddleston MD DD/ 1115 Signed By: <Electronically signed by MD Brook Huddleston> 05/24/22 1220 [facility] Work Phone: 1([phone]) 594-162710-08-2022 [facility]2022 Procedure note [facility]09-19-2022 Hospital Discharge instructions Patient Education 05/05/2022 10:53:10 [...] is clear With:Orquidea Cortez Address:Unknown When: Unknown [facility]09-02-2022 Hospital Discharge instructions Patient Education 04/18/2022 [...] 08/03/2006 Document Revised: 04/22/2019 Document Reviewed: 07/03/2017 [employer] Patient Education 2020 [employer]. 04/18/2022 14:33:29 Benign Prostatic Hyperplasia Benign Prostatic [...] urethra. Follow these instructions at home: Take ouqa-ujo-khwaasa and prescription medicines only as told by [...] 08/03/2006 Document Revised: 06/28/2019 Document Reviewed: 09/07/2017 [employer] Patient Education 2020 [employer] Follow Up Care 04/15/2022 15:48:55 With:Diego RICKS, OUSMANE Bell, URO Address: When: Unknown [facility] Marcela 08-18-2022 Hospital Discharge instructions Patient Education 04/03/2022 [...] [facility] [address], [place] [address]- Business (1) When:2 to 4 weeks Comments:Office visit to discuss and schedule Urolift. [facility]06-23-2022 Progress note Author Brook Huddleston [facility] February 06, 2022 2:07pm Note Date/Time February 05, 2022 11:5 4am [facility] at [address] [address] Hem/Onc Follow Up Note - OP Signed Patient: Patsy Cunningham MR#: [id number] : 1945 Acct:[id number] Age/Sex: 77 / M Type: REG RCR [...] of kidney stone by Dr. Seals at [place] on 01/14/2022 without complications. Sent off Revlimid [...] protein electrophoresis or serum or urine immunofixation. [place]/lambda light chain ratio continues to decline to [...] He underwent a painful bone marrow by [facility] [facility] with Dr. Hall with nondiagnostic specimen. Dr. [...] 20 he was treated for UTI at [facility] ER, thenadmitted August 24 to [place] with dehydration and urosepsis with discharge August 29. 09/05/[address] Heath for continued antibiotics with Bactrim DS. Urine also returned positive for candidiasis and he was treated with fluconazole daily. He stopped his hydralazine and Lasix. --09/17/2021: He returned for labs and skeletal survey at [facility] and his potassium on blood work was markedly elevated. We contacted him and advised ER evaluation at [facility]. His potassium returned at 7.3 and he [...] followup after D86 bone marrow biopsy at [facility] on 10/18/2020. No evidence of MRD--0.5% plasma cells andno clonal plasma cells suggestive of residual myeloma. Tolerating maintenance Revlimid 5mg daily well. No bone pain and normal renal function--Dr. Vincent hasreleased for annual nephrology followup. He is fully vaccinated for [id number] and I contacted Dr. Hall for coordination [...] completed all of his pretransplant evaluation at [facility] including cardiology visit 11 which showed ejection fraction 60%. I have contacted Dr. Hall who noted that today will be his last day of Velcade and we will hold his daratumumab. He was to have a COVID-19 teston 07/11/2020 for planned stem cell collection 07/17 and transplant on 07/23. I clarified with the staff at [facility] this this may be performed at [facility] and forwarded to them. His neuropathy in [...] has remarkably improved (>90% reduction past month). [place] light chains decreased from 12,000 to 42. [...] marijuana and would discuss this with his resident associate whetherthis would interfere with dialysis. We will also follow closely for cytopenias and reviewed infectious precautions. He has a son from [place] who plans to visit on Thursday and [...] now 77-year-old male who was transferred from [place] emergency room by [employer] due to critical [...] to be coordinated with nursing staffdue to [facility]- visitor restriction policy. - Summary of [...] day 0 autologous stem cell transplant 07/25/2020at [facility]. 11/26/2020: Follow-up bone marrow aspiration and biopsy 10/18/2020 for MRD evaluation shows hypocellular marrow with 0.5% plasma cells, no clonal population by flow cytometry but 0.03% kappa light chain skewing. Started Revlimid 5 mg daily for maintenance therapy early October 2020. Nondiagnostic bone marrow for MRD in spring 2021 at . Planned follow-up bone marrow biopsy for MRD at [facility] fall 2021. -- 02/05/2022: Revlimid on hold [...] followed by Dr. Seals--recent ESWL 01/14/2022 at [place]. ENDOCRINE: Negative for cold intolerance and heat [...] Negative for environmental allergies and food allergies. [facility] - History Attestation statement: The following information [...] % (Auto) 66.4, Lymph % (Auto) 21.2, [place] % (Auto) 6.9, Eos %(Auto) 5.1, Baso % (Auto) 0.4, Neut # (Auto) 2.4, Lymph # (Auto) 0.8 L, [place] # (Auto) 0.3, Eos # (Auto) 0.2, Baso # (Auto) 0.0, Nucleated RBC % (auto) 0.1 - Impressions No imaging for review. We do not have records from his recent ESWL at [place]. 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 11/26/2020: Followup of [facility] end of therapy bone marrow biopsy [...] be scheduled for MRD bone marrow at [facility] interventional radiology in April 2022, then follow-up with me with review of myeloma labs 3 months after this procedure. He still has undetectablemonoclonal spike and normal kappa/lambda light chain ratio on most recent labs. Renal function is improving since ESWL at [place] in late December. This is a moderate [...] for MRD. Repeat MRD bone marrow at [facility] in 3 months because spring 2021 bone [...] for coordination of care (as documented) and lcer-ka-zkbl counseling of patient and/or family. Dictated By: Brook Huddleston MD DD/ 1153 Signed By: <Electronically signed by MD Brook Huddleston> 02/06/22 1400 [facility] Work Phone: 1(927) 301-447706-23-2022 Progress note Author Brook Huddleston [facility] February 06, 2022 2:07pm Note Date/Time February 05, 2022 11:[address] [place] [address] [place] [address] Hem/Onc Follow Up Note - OP Signed Patient: Patsy Cunningham MR#: [id number] : 1945 Acct:[id number] Age/Sex: 77 / M Type: REG RCR [...] of kidney stone by Dr. Seals at [place] on 01/14/2022 without complications. Sent off Revlimid [...] protein electrophoresis or serum or urine immunofixation. [place]/lambda light chain ratio continues to decline to [...] He underwent a painful bone marrow by [facility] [facility] with Dr. Hall with nondiagnostic specimen. Dr. [...] 20 he was treated for UTI at [facility] ER, thenadmitted August 24 to [place] with dehydration and urosepsis with discharge August 29. 09/05/[address] Heath for continued antibiotics with Bactrim DS. Urine also returned positive for candidiasis and he was treated with fluconazole daily. He stopped his hydralazine and Lasix. --09/17/2021: He returned for labs and skeletal survey at [facility] and his potassium on blood work was markedly elevated. We contacted him and advised ER evaluation at [facility]. His potassium returned at 7.3 and he [...] due for follow-up with Dr. Hall at [facility] hematology in late October for 1 year [...] followup after D86 bone marrow biopsy at [facility] on 10/18/2020. No evidence of MRD--0.5% plasma cells andno clonal plasma cells suggestive of residual myeloma. Tolerating maintenance Revlimid 5mg daily well. No bone pain and normal renal function--Dr. Vincent hasreleased for annual nephrology followup. He is fully vaccinated for [id number] and I contacted Dr. Hall for coordination [...] completed all of his pretransplant evaluation at [facility] including cardiology visit 11 9 which showed ejection fraction 60%. I have contacted Dr. Hall who noted that today will be his last day of Velcade and we will hold his daratumumab. He was to have a COVID-19 teston 07/11/2020 for planned stem cell collection 07/17 and transplant on 07/23. I clarified with the staff at [facility] this this may be performed at [facility] and forwarded to them. His neuropathy in [...] has remarkably improved (>90% reduction past month). [place] light chains decreased from 12,000 to 42. [...] marijuana and would discuss this with his resident associate whetherthis would interfere with dialysis. We will also follow closely for cytopenias and reviewed infectious precautions. He has a son from [place] who plans to visit on Thursday and [...] but he may address this with our [facility] nutrition team. He will also receivechemotherapy class with our nurses in the infusion center. PRELIMINARY HISTORY (from initial consult 03/08/2020): This is a now 77-year-old male who was transferred from [place] emergency room by [facility] due to critical [...] to be coordinated with nursing staffdue to [facility]-19 visitor restriction policy. - Summary of [...] day 0 autologous stem cell transplant 07/25/2020at [facility]. 11/26/2020: Follow-up bone marrow aspiration and biopsy 10/18/2020 for MRD evaluation shows hypocellular marrow with 0.5% plasma cells, no clonal population by flow cytometry but 0.03% kappa light chain skewing. Started Revlimid 5 mg daily for maintenance therapy early October 2020. Nondiagnostic bone marrow for MRD in spring 2021 at . Planned follow-up bone marrow biopsy for MRD at [facility] fall 2021. -- 02/05/2022: Revlimid on hold [...] followed by Dr. Seals--recent ESWL 01/14/2022 at [place]. ENDOCRINE: Negative for cold intolerance and heat [...] % (Auto) 66.4, Lymph % (Auto) 21.2, [place] % (Auto) 6.9, Eos %(Auto) 5.1, Baso % (Auto) 0.4, Neut # (Auto) 2.4, Lymph # (Auto) 0.8 L, [place] # (Auto) 0.3, Eos # (Auto) 0.2, Baso # (Auto) 0.0, Nucleated RBC % (auto) 0.1 - Impressions No imaging for review. We do not have records from his recent ESWL at [place]. 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 11/26/2020: Followup of [facility] end of therapy bone marrow biopsy [...] Homocystine was normal methylmalonic acid is pending. Wechela also send an erythropoietin level to see [...] be scheduled for MRD bone marrow at [facility] interventional radiology in April 2022, then follow-up with me with review of myeloma labs 3 months after this procedure. He still has undetectablemonoclonal spike and normal kappa/lambda light chain ratio on most recent labs. Renal function is improving since ESWL at [place] in late December. This is a moderate [...] for MRD. Repeat MRD bone marrow at [facility] in 3 months because spring 2021 bone [...] for coordination of care (as documented) and daux-ri-mzbf counseling of patient and/or family. Dictated By: Brook Huddleston MD DD/ 1153 Signed By: <Electronically signed by MD Brook Huddleston> 02/06/22 7[address] [facility] Work Phone: 1([phone]) 287-320006-14-2022 Hospital Discharge instructions Patient Education 01/28/2022 09:14:11 Kidney Stones, Plsk-qx-Cgzg Kidney Stones Kidney stones are rock-like masses [...] Follow these instructions at home: Medicines Take lrqx-sbb-jjxlsrl and prescription medicines only as told by [...] 01/19/2009 Document Revised: 12/20/2019 Document Reviewed: 12/20/2019 [employer] Patient Education 2020 [employer]. Follow Up Care 01/20/2022 09:24:11 With:Vandana Urban MD, Patsy Payne, URO Address: [facility] [address] [place] [address]- When:Within 2 Month(s) Comments:f/u to Terazosin therapy With:Vandana Urban MD, Patsy Payne, URO Address: [facility] [address] [place] [address]- When:Within 6 Month(s) Comments:w/ obdulio [facility] 05-20-2022 Progress note Author Brook Huddleston [facility] January 03, 2022 9:40am Note Date/Time January 02, 2022 1:38p m [facility] at [address] [address] Hem/Onc Follow Up Note - OP Signed Patient: Patsy Cunningham MR#: [id number] : 1945 Acct:[id number] Age/Sex: 76 / M Type: REG RCR [...] He underwent a painful bone marrow by [employer] [facility] with Dr. Hall with nondiagnostic specimen. Dr. [...] 20 he was treated for UTI at [facility] ER, thenadmitted August 24 to [place] with dehydration and urosepsis with discharge August 29. 09/05/[address] Heath for continued antibiotics with Bactrim DS. Urine also returned positive for candidiasis and he was treated with fluconazole daily. He stopped his hydralazine and Lasix. --09/17/2021: He returned for labs and skeletal survey at [facility] and his potassium on blood work was markedly elevated. We contacted him and advised ER evaluation at [facility]. His potassium returned at 7.3 and he [...] due for follow-up with Dr. Hall at [facility] hematology in late October for 1 year [...] followup after D86 bone marrow biopsy at [facility] on 10/18/2020. No evidence of MRD--0.5% plasma cells andno clonal plasma cells suggestive of residual myeloma. Tolerating maintenance Revlimid 5mg daily well. No bone pain and normal renal function--Dr. Vincent hasreleased for annual nephrology followup. He is fully vaccinated for [id number] and I contacted Dr. Hall for coordination [...] completed all of his pretransplant evaluation at [facility] including cardiology visit 06 25 which showed ejection fraction 60%. I have contacted Dr. Hall who noted that today will be his last day of Velcade and we will hold his daratumumab. He was to have a COVID-19 teston 07/11/2020 for planned stem cell collection 07/17 and transplant on 07/23. I clarified with the staff at [facility] this this may be performed at [facility] and forwarded to them. His neuropathy in [...] has remarkably improved (>90% reduction past month). [place] light chains decreased from 12,000 to 42. [...] marijuana and would discuss this with his resident associate whetherthis would interfere with dialysis. We will also follow closely for cytopenias and reviewed infectious precautions. He has a son from [place] who plans to visit on Thursday and [...] but he may address this with our [facility] nutrition team. He will also receivechemotherapy class with our nurses in the infusion center. PRELIMINARY HISTORY (from initial consult 03/08/2020): This is a 76-year-old male who was transferred from [place] emergency room by [employer] due to critical [...] day 0 autologous stem cell transplant 07/25/2020at [facility]. 11/26/2020: Follow-up bone marrow aspiration and biopsy 10/18/2020 for MRD evaluation shows hypocellular marrow with 0.5% plasma cells, no clonal population by flow cytometry but 0.03% kappa light chain skewing. Started Revlimid 5 mg daily for maintenance therapy early October 2020. Nondiagnostic bone marrow for MRD in spring 2021 at . Planned follow-up bone marrow biopsy for MRD at [facility] fall 2021. ROS Details: All systems reviewed [...] 35.4, U Random Total Protein 45.3, U Perbg-8-Ceubhpzl (%) 5.4, U Random g-7-Dcnnfwyg % 13.7, U Random b-Globulin % 23.9, U Random Gamma Glob % 21.5, U Random M-Anselmo (%) Comment:, Urine Random PEP Note , Urine Immunofixation 12/26/21 16:01: Serum Total Protein 6.0, Albumin (Send Out) 2.8 L, Globulin (PEP) 3.2, Albumin/Globulin (PEP) 0.9, Eaekh-0-Xohulqeil 0.5 H, Mswgl-2-Wsyjrimof 1.0, Beta Globulins 0.9, Gamma Globulins 0.9, M-Anselmo Not observed, PEP Note , Homocysteine Cardiovas 17.5, IgG 944, IgA 250, IgM 33, Serum Immunofixation , Free [place] LC, Quant 38.9 H, Free Lambda LC, Quant 29.7 H, Free [place]/Lambda Ratio 1.31 12/26/21 16:01: PHA Creatinine Clear [...] H, MCHC 35.1, RDW 21.6 H, Plt Mxspa700 L, MPV 8.2, Neut % (Auto) 63.5, Lymph % (Auto) 20.4, [place] % (Auto) 5.7, Eos % (Auto) 9.7, Baso % (Auto) 0.7, Neut # (Auto) 2.5, Lymph # (Auto) 0.8 L, [place] #(Auto) 0.2, Eos # (Auto) 0.4, Baso [...] ASCT Day 0 07/25/2020. 11/26/2020: Followup of [facility] end of therapy bone marrow biopsy [...] for MRD. Repeat MRD bone marrow at [facility] in 3 months because spring bone marrow [...] for coordination of care (as documented) and ulrd-ro-acfj counseling of patient and/or family. Dictated By: Brook Huddleston MD DD/ 1337 Signed By: <Electronically signed by MD Brook Huddleston> 01/03/22 09[address] [facility] Work Phone: 1(307) 701-299105-20-2022 Progress note Author Brook Huddleston [facility] January 03, 2022 9:40am Note Date/Time January 02, 2022 1:38p m [facility] [place] [id number] Hem/Onc Follow Up Note - OP Signed Patient: Patsy Cunningham MR#: [id number] : 1945 Acct:[id number] Age/Sex: 76 / M Type: REG RCR [...] He underwent a painful bone marrow by [employer] [facility] with Dr. Hall with nondiagnostic specimen. Dr. [...] 20 he was treated for UTI at [facility] ER, thenadmitted August 24 to [place] with dehydration and urosepsis with discharge August 29. 09/05/[address] Heath for continued antibiotics with Bactrim DS. Urine also returned positive for candidiasis and he was treated with fluconazole daily. He stopped his hydralazine and Lasix. --09/17/2021: He returned for labs and skeletal survey at [facility] and his potassium on blood work was markedly elevated. We contacted him and advised ER evaluation at [facility]. His potassium returned at 7.3 and he [...] followup after D86 bone marrow biopsy at [facility] on 10/18/2020. No evidence of MRD--0.5% plasma cells andno clonal plasma cells suggestive of residual myeloma. Tolerating maintenance Revlimid 5mg daily well. No bone pain and normal renal function--Dr. Vincent hasreleased for annual nephrology followup. He is fully vaccinated for [id number] and I contacted Dr. Hall for coordination [...] completed all of [facility] [facility] including [facility]ology visit 11 9 which showed ejection fraction 60%. I have contacted Dr. Hall who noted that today will be his last day of Velcade and we will hold his daratumumab. He was to have a COVID-19 teston 07/11/2020 for planned stem cell collection 07/17 and transplant on 07/23. I clarified with the staff at [facility] ([facility] this this may be performed at [facility] and forwarded to them. His neuropathy in [...] has remarkably improved (>90% reduction past month). [place] light chains decreased from 12,000 to 42. [...] marijuana and would discuss this with his resident associate whetherthis would interfere with dialysis. We will also follow closely for cytopenias and reviewed infectious precautions. He has a son from [place] who plans to visit on Thursday and [...] but he may address this with our [facility] nutrition team. He will also receivechemotherapy class with our nurses in the infusion center. PRELIMINARY HISTORY (from initial consult 03/08/2020): This is a 76-year-old male who was transferred from [place] emergency room by [facility] due to critical [...] day 0 autologous stem cell transplant 07/25/2020at [facility]. 11/26/2020: Follow-up bone marrow aspiration and biopsy 10/18/2020 for MRD evaluation shows hypocellular marrow with 0.5% plasma cells, no clonal population by flow cytometry but 0.03% kappa light chain skewing. Started Revlimid 5 mg daily for maintenance therapy early October 2020. Nondiagnostic bone marrow for MRD in spring 2021 at . Planned follow-up bone marrow biopsy for MRD at [facility] fall 2021. ROS Details: All systems reviewed [...] Negative for environmental allergies and food allergies. [facility] - History Attestation statement: The following information [...] 35.4, U Random Total Protein 45.3, U Jkcat-2-Rmdnajyr (%) 5.4, U Random p-2-Gaisacbm % 13.7, U Random b-Globulin % 23.9, U Random Gamma Glob % 21.5, U Random M-Anselmo (%) Comment:, Urine Random PEP Note , Urine Immunofixation 12/26/21 16:01: Serum Total Protein 6.0, Albumin (Send Out) 2.8 L, Globulin (PEP) 3.2, Albumin/Globulin (PEP) 0.9, Dhovw-1-Ekphvxcmr 0.5 H, Lqcjy-1-Usqnjsesm 1.0, Beta Globulins 0.9, Gamma Globulins 0.9, M-Anselmo Not observed, PEP Note , Homocysteine Cardiovas 17.5, IgG 944, IgA 250, IgM 33, Serum Immunofixation , Free [place] LC, Quant 38.9 H, Free Lambda LC, Quant 29.7 H, Free [place]/Lambda Ratio 1.31 12/26/21 16:01: PHA Creatinine Clear [...] H, MCHC 35.1, RDW 21.6 H, Plt [id number] L, MPV 8.2, Neut % (Auto) 63.5, Lymph % (Auto) 20.4, [place] % (Auto) 5.7, Eos % (Auto) 9.7, Baso % (Auto) 0.7, Neut # (Auto) 2.5, Lymph # (Auto) 0.8 L, [place] #(Auto) 0.2, Eos # (Auto) 0.4, Baso [...] 0 scheduled 07/23/2020. His next follow-up with nm will be in about 4 months after he is completed day 100 transplant follow-up. He may return sooner as needed. 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 Melphalan 100mg/m2 + ASCT Day 0 07/25/2020. 11/26/2020: Followup of [facility] end of therapy bone marrow biopsy [...] for MRD. Repeat MRD bone marrow at [facility] in 3 months because spring bone marrow [...] for coordination of care (as documented) and zpag-km-gbkw counseling of patient and/or family. Dictated By: Brook Huddleston MD DD/ 1337 Signed By: <Electronically signed by MD Brook Huddleston> 01/03/22 [address] [facility] Work Phone: 1([phone]) 919-562404-26-2022 Hospital Discharge instructions Patient Education 12/10/2021 10:54:55 [...] urethra. Follow these instructions at home: Take cgky-fcc-rizxsyt and prescription medicines only as told by [...] 08/03/2006 Document Revised: 06/28/2019 Document Reviewed: 09/07/2017 [employer] Patient Education 2020 [employer]. Follow Up Care 11/13/2020 14:21:59 With:Vandana Urban MD, Patsy Payne URO Address: [facility] [address], [place] [address]- When: Unknown Comments:after procedure [facility] 04-14-2022 NotePre-procedure Verification and Time Out: Pre-Procedure Verification and Time Out: Procedure Locationprocedure area HUDDLE - Pre-procedure Verificationcompleted TIME OUT - Final Verificationcompleted immediately prior to procedure start DEBRIEFcompleted General Information: Anesthesia Critical Care: Non-Anesthesia Post-Procedure Diagnosis: Myeloma Procedure Name: Bone marrow biopsy Findings: grossly normal anatomy Procedure performed by: nm Appliance Worker(s): Brook Restrepo Estimated Blood Loss (mL): none [...] EMR. Tolerance: good Electronic Signatures: Suly Motta (WAITER/WAITRESS CAPTAIN-OIL PROGRAM COMPLIANCE SPECIALIST) (Signed 28-Nov-2021 10:51) Authored: Pre-procedure Verification and Time Out, General Information, Procedure Details, Note Completion Last Updated: 28-Nov-2021 10:51 by Suly Motta (WAITER/WAITRESS CAPTAIN-OIL PROGRAM COMPLIANCE SPECIALIST)[facility]04-14-2022 NoteClinic Note: Education Assessment: Learning BarriersNo barriers [...] Last Updated: 28-Nov-2021 10:36 by Violetta Bundy (RN)[facility] 10-29-2021 Evaluation note* Encounter Date Diagnosis Assessment [...] supplement as the patient is now off PAYMILL Other 02-18-2022 Progress note Author Brook Huddleston [facility] October 04, 2021 1:57pm Note Date/Time October 03, 2021 1:23pm [facility] [place] [address] Hem/Onc Follow Up Note - OP Signed Patient: Patsy Cunningham MR#: [id number] : 1945 Acct:[id number] Age/Sex: 76 / M Type: REG RCR [...] He has had recent hospital stay at [facility] HPI: 10/03/2021: Patsy is here for 4-month follow-up of light chain myeloma. His brought me a thorough list of his recent hospitalizations since early August 2021. Recurrent weakness and dizziness as per chief complaint. --August 20 he was treated for UTI at [facility] ER, thenadmitted August 24 to [place] with dehydration and urosepsis with discharge August 29. 09/05/[address] Heath for continued antibiotics with Bactrim DS. Urine also returned positive for candidiasis and he was treated with fluconazole daily. He stopped his hydralazine and Lasix. --09/17/2021: He returned for labs and skeletal survey at [facility] and his potassium on blood work was markedly elevated. We contacted him and advised ER evaluation at [facility]. His potassium returned at 7.3 and he [...] followup after D86 bone marrow biopsy at [facility] on 10/18/2020. No evidence of MRD--0.5% plasma cells andno clonal plasma cells suggestive of residual myeloma. Tolerating maintenance Revlimid 5mg daily well. No bone pain and normal renal function--Dr. Vincent hasreleased for annual nephrology followup. He is fully vaccinated for [id number] and I contacted Dr. Hall for coordination [...] completed all of his pretransplant evaluation at [facility] including cardiology visit 11 9 which showed ejection fraction 60%. I have contacted Dr. Hall who noted that today will be his last day of Velcade and we will hold his daratumumab. He was to have a COVID-19 test on 07/11/2020 for planned stem cell collection 07/17 and transplant on 07/23. I clarified with the staff at [facility] this this may be performed at [facility] and forwarded to them. His neuropathy in [...] has remarkably improved (>90% reduction past month). [place] light chains decreased from 12,000 to 42. [...] of light chains noted. I contacted Dr. Rhaman of nephrology to consider reducing hemodialysis days [...] marijuana and would discuss this with his resident associate whetherthis would interfere with dialysis. We will also follow closely for cytopenias and reviewed infectious precautions. He has a son from [place] who plans to visit on Thursday and [...] but he may address this with our [facility] nutrition team. He will also receivechemotherapy class with our nurses in the infusion center. PRELIMINARY HISTORY (from initial consult 03/08/2020): This is a 76-year-old male who was transferred from [place] emergency room by [facility] due to critical potassium 8.7 with [...] to be coordinated with nursing staffdue to [facility]- visitor restriction policy. - Summary of [...] day 0 autologous stem cell transplant 07/25/2020at [facility]. 11/26/2020: Follow-up bone marrow aspiration [...] Negative for environmental allergies and food allergies. [facility] - Medical History Medical History: Medical History [...] ASCT Day 0 07/25/2020. 11/26/2020: Followup of [facility] end of therapy bone marrow biopsy [...] for coordination of care (as documented) and hhoi-ik-hfac counseling of patient and/or family. 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 His brought me a thorough list of his recent hospitalizations since early August 2021. Recurrent weakness and dizziness as per chief complaint. --August 20 he was treated for UTI at [facility] ER, thenadmitted August 24 to [place] with dehydration and urosepsis with discharge August 29. 09/05/[address] Heath for continued antibiotics with Bactrim DS. Urine also returned positive for candidiasis and he was treated with fluconazole daily. He stopped his hydralazine and Lasix. --09/17/2021: He returned for labs and skeletal survey at [facility] and his potassium on blood work was markedly elevated. We contacted him and advised ER evaluation at [facility]. His potassium returned at 7.3 and he [...] due for follow-up with Dr. Hall at [facility] hematology in late October for 1 year [...] followup after D86 bone marrow biopsy at [facility] on 10/18/2020. No evidence of MRD--0.5% plasma cells andno clonal plasma cells suggestive of residual myeloma. Tolerating maintenance Revlimid 5mg daily well. No bone pain and normal renal function--Dr. Vincent hasreleased for annual nephrology followup. He is fully vaccinated for [id number] and I contacted Dr. Hall for coordination [...] completed all of his pretransplant evaluation at [facility] including cardiology visit 11 9 which showed ejection fraction 60%. I have contacted Dr. Hall who noted that today will be his last day of Velcade and we will hold his daratumumab. He was to have a COVID-19 test on 07/11/2020 for planned stem cell collection 07/17 and transplant on 07/23. I clarified with the staff at [facility] this this may be performed at [facility] and forwarded to them. His neuropathy in [...] 04/26/2020. Angel and his note that Dr. aHll felt that he was physiologically about 8 [...] has remarkably improved (>90% reduction past month). [place] light chains decreased from 12,000 to 42. [...] marijuana and would discuss this with his resident associate whetherthis would interfere with dialysis. We will also follow closely for cytopenias and reviewed infectious precautions. He has a son from [place] who plans to visit on Thursday and [...] a 76-year-old male who was transferred from [place] emergency room by [facility] due to critical [...] to be coordinated with nursing staffdue to [facility]-19 visitor restriction policy. - Summary of [...] day 0 autologous stem cell transplant 07/25/2020at [facility]. 11/26/2020: Follow-up bone marrow aspiration [...] Negative for environmental allergies and food allergies. [facility] - Medical History Medical History: Medical History [...] ASCT Day 0 07/25/2020. 11/26/2020: Followup of [facility] end of therapy bone marrow biopsy [...] for coordination of care (as documented) and ppvp-bb-uoan counseling of patient and/or family. Dictated By: Brook Huddleston MD DD/ 1322 Signed By: <Electronically signed by MD Brook Huddleston> 10/04/21 [address] [facility] Work Phone: 1(498) 326-889110-15-2021 Progress note Author Brook Huddleston [facility] May 31, 2021 5:42pm Note Date/Time May 30, 2021 2 :50pm [facility] [address] [place] [address] Hem/Onc Follow Up Note - OP Signed Patient: Patsy Cunningham MR#: [id number] : 1945 Acct:[id number] Age/Sex: 76 / M Type: REG RCR Copies to: MD Helen Jaramillo MD~ Subjective Date/Time of Service: Date of Service: 05/30/2021 Time of Service: 14:49 Chief Complaint: Patient is here for a 3 month follow up [facility] labs for review. Patient has questions [...] followup after D86 bone marrow biopsy at [facility] on 10/18/2020. No evidence of MRD--0.5% plasma cells andno clonal plasma cells suggestive of residual myeloma. Tolerating maintenance Revlimid 5mg daily well. No bone pain and normal renal function--Dr. Vincent hasreleased for annual nephrology followup. He is fully vaccinated for [id number] and I contacted Dr. Hall for coordination [...] completed all of his pretransplant evaluation at [facility] including cardiology visit 11 9 which showed ejection fraction 60%. I have contacted Dr. Hall who noted that today will be his last day of Velcade and we will hold his daratumumab. He was to have a COVID-19 teston 07/11/2020 for planned stem cell collection 07/17 and transplant on 07/23. I clarified with the staff at [facility] this this may be performed at [facility] and forwarded to them. His neuropathy in [...] has remarkably improved (>90% reduction past month). [place] light chains decreased from 12,000 to 42. [...] marijuana and would discuss this with his resident associate whetherthis would interfere with dialysis. We will also follow closely for cytopenias and reviewed infectious precautions. He has a son from [place] who plans to visit on Thursday and [...] but he may address this with our [facility] nutrition team. He will also receivechemotherapy class with our nurses in the infusion center. PRELIMINARY HISTORY (from initial consult 03/08/2020): This is a 76-year-old male who was transferred from [place] emergency room by [facility] due to critical potassium 8.7 with [...] day 0 autologous stem cell transplant 07/25/2020at [facility]. 11/26/2020: Follow-up bone marrow aspiration [...] 33.0, U Random Total Protein <4.0, U Itdfb-0-Fniehysa (%) 3.1, U Random o-9-Znththbv % 13.7, U Random b-Globulin % 26.4, U Random Gamma Glob % 23.7, U Random M-Anselmo (%) Not observed, Urine Random PEP Note , Urine Immunofixation 05/24/21 14:07: Serum Total Protein 6.4, Albumin (Send Out) 3.3, Globulin (PEP) 3.1, Albumin/Globulin (PEP) 1.1, Rzowp-6-Ymmazkppw 0.3, Ngsuj-6-Kceujmxzu 0.9, Beta Globulins 0.9, Eosw-6-Jpcjwokghlglq 2.8 H, Gamma Globulins 1.0, M-Anselmo Comment:, PEP Note , IgG 944, IgA 137, IgM 29, Serum Immunofixation Comment:, Free [place] LC, Quant 32.7 H, Free Lambda LC, Quant 21.3, Free [place]/Lambda Ratio1.54 05/24/21 14:07: PHA Creatinine Clear 78.43, [...] % (Auto) 43.8, Lymph % (Auto) 25.5, [place] % (Auto) 9.0, Eos % (Auto) 20.7, Baso % (Auto) 1.0, Neut # (Auto) 1.6 L, Lymph # (Auto) 0.9 L,[place] # (Auto) 0.3, Eos # (Auto) 0.8 [...] ASCT Day 0 07/25/2020. 11/26/2020: Followup of [facility] end of therapy bone marrow biopsy [...] for coordination of care (as documented) and ktyx-hn-howc counseling of patient and/or family. Dictated By: Brook Huddleston MD DD/ 1449 Signed By: <Electronically signed by MD Brook Huddleston> 05/31/21 [address] [facility] Work Phone: 1([phone]) 498-149210-15-2021 Progress note Author Brook Huddleston [facility] May 31, 2021 5:42pm Note Date/Time May 30, 2021 2 :50pm [facility] [place] [address] Hem/Onc Follow Up Note - OP Signed Patient: Patsy Cunningham MR#: [id number] : 1945 Acct:[id number] Age/Sex: 76 / M Type: REG RCR Copies to: MD Helen Jaramillo MD~ Subjective Date/Time of Service: Date of Service: 05/30/2021 Time of Service: 14:49 Chief Complaint: Patient is here for a 3 month follow up [facility] labs for review. Patient has questions [...] followup after D86 bone marrow biopsy at [facility] on 10/18/2020. No evidence of MRD--0.5% plasma cells andno clonal plasma cells suggestive of residual myeloma. Tolerating maintenance Revlimid 5mg daily well. No bone pain and normal renal function--Dr. Vincent hasreleased for annual nephrology followup. He is fully vaccinated for [id number] and I contacted Dr. Hall for coordination [...] completed all of his pretransplant evaluation at [facility] including cardiology visit 11 9 which showed ejection fraction 60%. I have contacted Dr. Hall who noted that today will be his last day of Velcade and we will hold his daratumumab. He was to have a COVID-19 teston 07/11/2020 for planned stem cell collection 07/17 and transplant on 07/23. I clarified with the staff at [facility] this this may be performed at [facility] and forwarded to them. His neuropathy in [...] has remarkably improved (>90% reduction past month). [place] light chains decreased from 12,000 to 42. [...] marijuana and would discuss this with his resident associate whetherthis would interfere with dialysis. We will also follow closely for cytopenias and reviewed infectious precautions. He has a son from [place] who plans to visit on Thursday and [...] but he may address this with our [facility] nutrition team. He will also receivechemotherapy class with our nurses in the infusion center. PRELIMINARY HISTORY (from initial consult 03/08/2020): This is a 76-year-old male who was transferred from [place] emergency room by [facility] due to critical [...] day 0 autologous stem cell transplant 07/25/2020at [facility]. 11/26/2020: Follow-up bone marrow aspiration [...] Negative for environmental allergies and food allergies. [facility] - History Attestation statement: The following information [...] 33.0, U Random Total Protein <4.0, U Puavd-7-Livqbkex (%) 3.1, U Random x-6-Tyhgvkaj % 13.7, U Random b-Globulin % 26.4, U Random Gamma Glob % 23.7, U Random M-Asnelmo (%) Not observed, Urine Random PEP Note , Urine Immunofixation 05/24/21 14:07: Serum Total Protein 6.4, Albumin (Send Out) 3.3, Globulin (PEP) 3.1, Albumin/Globulin (PEP) 1.1, Vsddt-1-Xbjxjoyus 0.3, Epjsm-7-Lchuisofv 0.9, Beta Globulins 0.9, Tkck-7-Tpfttqrmjwpht 2.8 H, Gamma Globulins 1.0, M-Anselmo Comment:, PEP Note , IgG 944, IgA 137, IgM 29, Serum Immunofixation Comment:, Free [place] LC, Quant 32.7 H, Free Lambda LC, Quant 21.3, Free [place]/Lambda Ratio1.54 05/24/21 14:07: PHA Creatinine Clear 78.43, [...] % (Auto) 43.8, Lymph % (Auto) 25.5, [place] % (Auto) 9.0, Eos % (Auto) 20.7, Baso % (Auto) 1.0, Neut # (Auto) 1.6 L, Lymph # (Auto) 0.9 L,[place] # (Auto) 0.3, Eos # (Auto) 0.8 [...] ASCT Day 0 07/25/2020. 11/26/2020: Followup of [facility] end of therapy bone marrow biopsy [...] and normal kappa/lambda ratio. Next followup with nm in 3 months for exam and f/u [...] for coordination of care (as documented) and phdn-jf-cmba counseling of patient and/or family. Dictated By: Brook Huddleston MD DD/ 1449 Signed By: <Electronically signed by MD Brook Huddleston> 05/31/21 [address] [facility] Work Phone: 1(970) 635-215207-14-2021 Progress note Author Brook Huddleston [facility] February 27, 2021 8:52pm Note Date/Time February 27, 2021 2:50 pm [facility] [place] [address] Hem/Onc Follow Up Note - OP Signed Patient: Patsy Cunningham MR#: [id number] : 1945 Acct:[id number] Age/Sex: 76 / M Type: REG RCR [...] followup after D86 bone marrow biopsy at [facility] on 10/18/2020. No evidence of MRD--0.5% plasma cells andno clonal plasma cells suggestive of residual myeloma. Tolerating maintenance Revlimid 5mg daily well. No bone pain and normal renal function--Dr. Vincent hasreleased for annual nephrology followup. He is fully vaccinated for [id number] and I contacted Dr. Hall for coordination [...] completed all of his pretransplant evaluation at [facility] including cardiology visit 11 9 which showed ejection fraction 60%. I have contacted Dr. Hall who noted that today will be his last day of Velcade and we will hold his daratumumab. He was to have a COVID-19 teston 07/11/2020 for planned stem cell collection 07/17 and transplant on 07/23. I clarified with the staff at [facility] this this may be performed at [facility] and forwarded to them. His neuropathy in [...] has remarkably improved (>90% reduction past month). [place] light chains decreased from 12,000 to 42. [...] marijuana and would discuss this with his resident associate whetherthis would interfere with dialysis. We will also follow closely for cytopenias and reviewed infectious precautions. He has a son from [place] who plans to visit on Thursday and [...] but he may address this with our [facility] nutrition team. He will also receivechemotherapy class with our nurses in the infusion center. PRELIMINARY HISTORY (from initial consult 03/08/2020): This is a 76-year-old male who was transferred from [place] emergency room by [facility] due to critical potassium 8.7 with elevated [...] to be coordinated with nursing [facility]due [facility]. - Summary of Therapies [...] day 0 autologous stem cell transplant 07/25/2020at [facility]. 11/26/2020: Follow-up bone marrow aspiration [...] 3.4, Globulin (PEP) 2.8, Albumin/Globulin (PEP) 1.2, Gbqig-5-Smmrsitkx 0.2, Jcpqo-9-Nhnshcecl 0.9, Beta Globulins 0.9, Havs-1-Ywerrttcyqljx 2.3, Gamma Globulins 0.7, M-Anselmo Not observed, PEP Note , IgG 749, IgA 89, IgM 21, Serum Immunofixation , Free [place] LC, Quant 30.3 H, Free Lambda LC, Quant 16.7, Free [place]/Lambda Ratio 1.81 H 02/20/21 11:25: PHA Creatinine [...] ASCT Day 0 07/25/2020. 11/26/2020: Followup of [facility] end of therapy bone marrow biopsy [...] for coordination of care (as documented) and sffn-jd-uvay counseling of patient and/or family. Dictated By: Brook Huddleston MD DD/ [id number] Signed By: <Electronically signed by MD Brook Huddleston> 02/27/212051 [facility] Work Phone: 1([phone]) 481-137807-14-2021 Progress note Author Brook Huddleston [facility] 14th, 2021 8:52pm Note Date/Time February 27, 2021 2:50 pm [facility] [place] [address] Hem/Onc Follow Up Note - OP Signed Patient: Patsy Cunningham MR#: [id number] : 1945 Acct:[id number] Age/Sex: 76 / M Type: REG RCR [...] followup after D86 bone marrow biopsy at [facility] on 10/18/2020. No evidence of MRD--0.5% plasma cells andno clonal plasma cells suggestive of residual myeloma. Tolerating maintenance Revlimid 5mg daily well. No bone pain and normal renal function--Dr. Vincent hasreleased for annual nephrology followup. He is fully vaccinated for [id number] and I contacted Dr. Hall for coordination [...] completed all of his [facility]plant evaluation at [facility] [facility] including [facility]ology visit 11 9 which showed ejection fraction 60%. I have contacted Dr. Hall who noted that today will be his last day of Velcade and we will hold his daratumumab. He was to have a COVID-19 teston 07/11/2020 for planned stem cell collection 07/17 and transplant on 07/23. I clarified with the staff at [facility] this this may be performed at [facility] and forwarded to them. His neuropathy in [...] has remarkably improved (>90% reduction past month). [place] light chains decreased from 12,000 to 42. [...] of light chains noted. I contacted Dr. aRhman of nephrology to consider reducing hemodialysis days [...] marijuana and would discuss this with his resident associate whetherthis would interfere with dialysis. We will also follow closely for cytopenias and reviewed infectious precautions. He has a son from [place] who plans to visit on Thursday and [...] but he may address this with our [facility] nutrition team. He will also receivechemotherapy class with our nurses in the infusion center. PRELIMINARY HISTORY (from initial consult 03/08/2020): This is a 76-year-old male who was transferred from [place] emergency room by [facility] due to critical [...] to be coordinated with nursing [facility]due to [facility]. - Summary of Therapies [...] day 0 autologous stem cell transplant 07/25/2020at [facility]. 11/26/2020: Follow-up bone marrow aspiration [...] Negative for environmental allergies and food allergies. [facility] - History Attestation statement: The following information [...] 3.4, Globulin (PEP) 2.8, Albumin/Globulin (PEP) 1.2, Mdfkw-4-Mgahokroo 0.2, Mjumu-3-Hnptvbjmr 0.9, Beta Globulins 0.9, Qbim-2-Hsykzozuvejso 2.3, Gamma Globulins 0.7, M-Anselmo Not observed, PEP Note , IgG 749, IgA 89, IgM 21, Serum Immunofixation , Free [place] LC, Quant 30.3 H, Free Lambda LC, Quant 16.7, Free [place]/Lambda Ratio 1.81 H 02/20/21 11:25: PHA Creatinine [...] ASCT Day 0 07/25/2020. 11/26/2020: Followup of [facility] end of therapy bone marrow biopsy [...] for coordination of care (as documented) and fsqr-wh-iwmw counseling of patient and/or family. Dictated By: Brook Hudldeston MD DD/ 1449 Signed By: <Electronically signed by MD Brook Huddleston> 02/27/212051 [facility] Work Phone: 1(784) 431-424604-12-2021 Progress note Author Brook Huddleston [facility] November 26, 2020 6:26pm Note Date/Time November 26, 2020 11: 21am [facility] [place] [address] Hem/Onc Follow Up Note - OP Signed Patient: Patsy Cunningham MR#: [id number] : 1945 Acct:[id number] Age/Sex: 75 / M Type: REG RCR Copies to: MD Helen Jaramillo MD~ Subjective Date/Time of Service: Date of Service: 11/26/2020 Time of Service: 11:20 Chief Complaint: Patient is here today for 1 month follow up visit for 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 He had bone biopsy and labs done at in [place]. No new concerns HPI: 11/26/2020: Patsy is here for followup after D86 bone marrow biopsy at [facility] on 10/18/2020. No evidence of MRD--0.5% plasma cells andno clonal plasma cells suggestive of residual myeloma. Tolerating maintenance Revlimid 5mg daily well. No bone pain and normal renal function--Dr. Vincent hasreleased for annual nephrology followup. He is fully vaccinated for [id number] and I contacted Dr. Hall for coordination [...] completed all of his pretransplant evaluation at [facility] including cardiology visit 11 9 which showed ejection fraction 60%. I have contacted Dr. Hall who noted that today will be his last day of Velcade and we will hold his daratumumab. He was to have a COVID-19 test on 07/11/2020 for planned stem cell collection 07/17 and transplant on 07/23. I clarified with the staff at [facility] this this may be performed at [facility] and forwarded to them. His neuropathy in [...] has remarkably improved (>90% reduction past month). [place] light chains decreased from 12,000 to 42. [...] marijuana and would discuss this with his resident associate whetherthis would interfere with dialysis. We will also follow closely for cytopenias and reviewed infectious precautions. He has a son from [place] who plans to visit on Thursday and [...] but he may address this with our [facility] nutrition team. He will also receivechemotherapy class with our nurses in the infusion center. PRELIMINARY HISTORY (from initial consult 03/08/2020): This is a 75-year-old male who was transferred from [place] emergency room by [facility] due to critical [...] day 0 autologous stem cell transplant 07/25/2020at [facility]. 11/26/2020: Follow-up bone marrow aspiration [...] Negative for environmental allergies and food allergies. [facility] - History Attestation statement: The following information [...] 10/08/20 10:02 10/08/20 10:02 Outside Labs: 10/18/2020 ([facility] WBC 6400, Hg 11.8, Hct 35.4, Platelets [...] ASCT Day 0 07/25/2020. 11/26/2020: Followup of [facility] end of therapy bone marrow biopsy [...] for coordination of care (as documented) and ypcm-wr-taqg counseling of patient and/or family. Dictated By: Brook Huddleston MD DD/ 1120 Signed By: <Electronically signed by MD Brook Huddleston> 11/26/20 2110 [facility] Work Phone: 1(137) 252-842904-12-2021 Progress note Author Brook Huddleston [facility] November 26, 2020 6:26pm Note Date/Time November 26, 2020 11: 21[facility] [place] [address] Hem/Onc Follow Up Note - OP Signed Patient: Patsy Cunningham MR#: [id number] : 1945 Acct:[id number] Age/Sex: 75 / M Type: REG RCR Copies to: MD Helen Jaramillo MD~ Subjective Date/Time of Service: Date of Service: 11/26/2020 Time of Service: 11:20 Chief Complaint: Patient is here today for 1 month follow up visit for 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 He had bone biopsy and labs done at in [place]. No new concerns HPI: 11/26/2020: Patsy is here for followup after D86 bone marrow biopsy at [facility] on 10/18/2020. No evidence of MRD--0.5% plasma cells andno clonal plasma cells suggestive of residual myeloma. Tolerating maintenance Revlimid 5mg daily well. No bone pain and normal renal function--Dr. Vincent hasreleased for annual nephrology followup. He is fully vaccinated for [id number] and I contacted Dr. Hall for coordination [...] completed all of his pretransplant evaluation at [facility] including cardiology visit 06 25 which showed ejection fraction 60%. I have contacted Dr. Hall who noted that today will be his last day of Velcade and we will hold his daratumumab. He was to have a COVID-19 test on 07/11/2020 for planned stem cell collection 07/17 and transplant on 07/23. I clarified with the staff at [facility] this this may be performed at [facility] and forwarded to them. His neuropathy in [...] has remarkably improved (>90% reduction past month). [place] light chains decreased from 12,000 to 42. [...] marijuana and would discuss this with his resident associate whetherthis would interfere with dialysis. We will also follow closely for cytopenias and reviewed infectious precautions. He has a son from [place] who plans to visit on Thursday and [...] a 75-year-old male who was transferred from [place] emergency room by [facility] due to critical [...] day 0 autologous stem cell transplant 07/25/2020at [facility]. 11/26/2020: Follow-up bone marrow aspiration [...] Negative for environmental allergies and food allergies. [facility] - History Attestation statement: The following information [...] 10/08/20 10:02 10/08/20 10:02 Outside Labs: 10/18/2020 ([facility] WBC 6400, Hg 11.8, Hct 35.4, Platelets [...] ASCT Day 0 07/25/2020. 11/26/2020: Followup of [facility] end of therapy bone marrow biopsy [...] for coordination of care (as documented) and cfnf-nt-hjkw counseling of patient and/or family. Dictated By: Brook Huddleston MD DD/ 1120 Signed By: <Electronically signed by MD Brook Huddleston> 11/26/20 7968 [facility] Work Phone: 1(523) 544-377903-02-2021 Progress note Author Brook Huddleston [facility] October 15, 2020 10:42pm Note Date/Time October 15, 2020 10:[address] [place] [address] [place] [address] Hem/Onc Follow Up Note - OP Signed Patient: Patsy Cunningham MR#: [id number] : 1945 Acct:[id number] Age/Sex: 75 / M Type: REG RCR [...] completed all of his pretransplant evaluation at [facility] including cardiology visit 11 which showed ejection fraction 60%. I have contacted Dr. Hall who noted that today will be his last day of Velcade and we will hold his daratumumab. He was to have a COVID-19 teston 07/11/2020 for planned stem cell collection 07/17 and transplant on 07/23. I clarified with the staff at [facility] this this may be performed at [facility] and forwarded to them. His neuropathy in [...] has remarkably improved (>90% reduction past month). [place] light chains decreased from 12,000 to 42. [...] marijuana and would discuss this with his resident associate whetherthis would interfere with dialysis. We will also follow closely for cytopenias and reviewed infectious precautions. He has a son from [place] who plans to visit on Thursday and [...] but he may address this with our [facility] nutrition team. He will also receivechemotherapy class with our nurses in the infusion center. PRELIMINARY HISTORY (from initial consult 03/08/2020): This is a 75-year-old male who was transferred from [place] emergency room by [facility] due to critical potassium 8.7 with [...] to be coordinated with nursing staffdue to [facility]- visitor restriction policy. - Summary of [...] day 0 autologous stem cell transplant 07/25/2020at [facility]. ROS Details: All systems reviewed [...] Negative for environmental allergies and food allergies. [facility] - History Attestation statement: The following information [...] 48.3, U Random Total Protein 4.7, U Rkzuh-4-Dpoxwhut (%) 7.2, U Random o-1-Rzsihfuy % 11.5, U Random b-Globulin % 12.0, U Random Gamma Glob % 21.1, U Random M-Anselmo (%) Not observed, Urine Random PEP Note , Urine Immunofixation 10/08/20 10:02: Serum Total Protein 5.9 L, Albumin (Send Out) 3.4, Globulin (PEP) 2.5, Albumin/Globulin (PEP) 1.4, Vyftk-1-Rymjrqfst 0.2, Storl-8-Lsmichsdq 0.9, Beta Globulins 0.9, Gamma Globulins 0.5, M-Anselmo Not observed, PEP Note , IgG 525 L, IgA 56 L, IgM 16, Serum Immunofixation , Free [place] LC, Quant 8.7, Free Lambda LC, Quant 3.9 L, Free [place]/Lambda Ratio 2.23 H 10/08/20 10:02: PHA Creatinine [...] % (Auto) 79.2, Lymph % (Auto) 11.3, [place] % (Auto) 6.7, Eos % (Auto) 2.5, Baso % (Auto) 0.3, Neut # (Auto) 4.0, Lymph # (Auto) 0.6 L, [place] # (Auto) 0.3, Eos # (Auto) 0.1, [...] for coordination of care (as documented) and olap-ht-quvj counseling of patient and/or family. Dictated By: Brook Huddleston MD DD/ 1025 Signed By: <Electronically signed by MD Brook Huddleston> 10/15/20 [address] [facility] Work Phone: 1(756) 508-281503-02-2021 Progress note Author Brook Huddleston [facility] October 15, 2020 10:42pm Note Date/Time October 15, 2020 10:2 6am [facility] [place] [address] Hem/Onc Follow Up Note - OP Signed Patient: Patsy Cunningham MR#: [id number] : 1945 Acct:[id number] Age/Sex: 75 / M Type: REG RCR [...] completed all of his pretransplant evaluation at [facility] including cardiology visit 11 9 which showed ejection fraction 60%. I have contacted Dr. Hall who noted that today will be his last day of Velcade and we will hold his daratumumab. He was to have a COVID-19 teston 07/11/2020 for planned stem cell collection 07/17 and transplant on 07/23. I clarified with the staff at [facility] this this may be performed at [facility] and forwarded to them. His neuropathy in [...] has remarkably improved (>90% reduction past month). [place] light chains decreased from 12,000 to 42. [...] marijuana and would discuss this with his resident associate whetherthis would interfere with dialysis. We will also follow closely for cytopenias and reviewed infectious precautions. He has a son from [place] who plans to visit on Thursday and [...] but he may address this with our [facility] nutrition team. He will also receivechemotherapy class with our nurses in the infusion center. PRELIMINARY HISTORY (from initial consult 03/08/2020): This is a 75-year-old male who was transferred from [place] emergency room by [facility] due to critical potassium 8.7 with elevated [...] to be coordinated with nursing staffdue to [facility]. - Summary of Therapies [...] day 0 autologous stem cell transplant 07/25/2020at [facility]. ROS Details: All systems reviewed [...] Negative for environmental allergies and food allergies. [facility] - History Attestation statement: The following information [...] 48.3, U Random Total Protein 4.7, U Alcgy-5-Nzwumjtz (%) 7.2, U Random a-4-Nmzgyagg % 11.5, U Random b-Globulin % 12.0, U Random Gamma Glob % 21.1, U Random M-Anselmo (%) Not observed, Urine Random PEP Note , Urine Immunofixation 10/08/20 10:02: Serum Total Protein 5.9 L, Albumin (Send Out) 3.4, Globulin (PEP) 2.5, Albumin/Globulin (PEP) 1.4, Qisbp-5-Wtoavtnnx 0.2, Gfsbk-5-Eagzyavlb 0.9, Beta Globulins 0.9, Gamma Globulins 0.5, M-Anselmo Not observed, PEP Note , IgG 525 L, IgA 56 L, IgM 16, Serum Immunofixation , Free [place] LC, Quant 8.7, Free Lambda LC, Quant 3.9 L, Free [place]/Lambda Ratio 2.23 H 10/08/20 10:02: PHA Creatinine [...] % (Auto) 79.2, Lymph % (Auto) 11.3, [place] % (Auto) 6.7, Eos % (Auto) 2.5, Baso % (Auto) 0.3, Neut # (Auto) 4.0, Lymph # (Auto) 0.6 L, [place] # (Auto) 0.3, Eos # (Auto) 0.1, [...] 07/25/2020. End of therapy bone marrow biopsy Thursday. Reviewed survivorship recommendations from Evaluation with Dr. [...] for coordination of care (as documented) and tejb-kq-yxsl counseling of patient and/or family. Dictated By: Brook Huddleston MD DD/ 1025 Signed By: <Electronically signed by MD Brook Huddleston> 10/15/20 [address] [facility] Work Phone: 1([phone]) 569-689611-16-2020 Progress note Author Brook Huddleston [facility] July 02, 2020 10:43am Note Date/Time July 02, 2020 9:04am [facility] [place] [address] Hem/Onc Follow Up Note - OP Signed Patient: Patsy Cunningham MR#: [id number] : 1945 Acct:[id number] Age/Sex: 75 / M Type: REG RCR [...] completed all of his pretransplant evaluation at [facility] including cardiology visit 11 9 which showed ejection fraction 60%. I have contacted Dr. Hall who noted that today will be his last day of Velcade and we will hold his daratumumab. He was to have a COVID-19 teston 07/11/2020 for planned stem cell collection 07/17 and transplant on 07/23. I clarified with the staff at [facility] this this may be performed at [facility] and forwarded to them. His neuropathy in [...] has remarkably improved (>90% reduction past month). [place] light chains decreased from 12,000 to 42. [...] marijuana and would discuss this with his resident associate whetherthis would interfere with dialysis. We will also follow closely for cytopenias and reviewed infectious precautions. He has a son from [place] who plans to visit on Thursday and [...] but he may address this with our [facility] nutrition team. He will also receivechemotherapy class with our nurses in the infusion center. PRELIMINARY HISTORY (from initial consult 03/08/2020): This is a 75-year-old male who was transferred from [place] emergency room by [facility] due to critical [...] to be coordinated with nursing staffdue to [facility]. - Summary of Therapies [...] 0 autologous stem cell transplant 07/23/2020 at [facility]. ROS Details: All systems reviewed & [...] Neut % (Auto)77.6, Lymph % (Auto) 12.3, [place] % (Auto) 7.3, Eos % (Auto) 2.1, Baso % (Auto) 0.7, Neut # (Auto) 6.7, Lymph # (Auto) 1.1, [place] # (Auto) 0.6, Eos # (Auto) 0.2,Baso # (Auto) 0.1, Nucleated RBC % (auto) 0.0 - Other Results Results/Comments: [facility] [address] [place] [address] and TRANSTHORACIC ECHOCARDIOGRAM REPORT Patient Name: PATSY Suarez Physician: [id number] Ti Grayson MD Study Date: 06/25/2020 Referring Physician: Quique Hall MRN/PID: [id number] PCP: Accession/Order#: [id number] Department Location: [facility] Echo Lab Date of : 1945 Fellow: Gender: M Nurse: Admit Date: Style Advisor: Lavonne Turcios RDCS Admission Status: Outpatient Additional Staff: Height: 180.34 cm CC Report to: Weight: 90.72 kg Study Type: Onco-Cardiology Echo BSA: 2.11 m2 Blood Pressure: 135 /82 mmHg Diagnosis/ICD: Z94.84-Stem cell transplant status Indication: Multiple myeloma; Stem-cell transplant Procedure/CPT: Echo Complete w Full Doppler-13162; 3D Rendering w/o independent [id number]; Myocardial Strain Imaging-99889 CONCLUSIONS: 1. The left ventricular systolic function is normal with a 60% estimated ejection fraction. 2. Spectral Doppler shows an impaired relaxation pattern of left ventricular diastolic filling. 3. Mild aortic valve stenosis. 4.Strain values are equivocal. [id number] Ti Grayson MD Electronically signed on 06/25/2020 [...] management will occur as an inpatient in [place]. Increased peripheral neuropathy complaints in bilateral hands [...] for coordination of care (as documented) and zdpv-uy-nnfu counseling of patient and/or family. Dictated By: Brook Huddleston MD DD/ 0904 Signed By: <Electronically signed by MD Brook Huddleston> 07/02/20 1043 [facility] Work Phone: 1([phone]) 376-832411-16-2020 Progress note Author Brook Huddleston [facility] July 02, 2020 10:43am Note Date/Time July 02, 2020 9:04am [facility] [place] [address] Hem/Onc Follow Up Note - OP Signed Patient: Patsy Cunningham MR#: [id number] : 1945 Acct:[id number] Age/Sex: 75 / M Type: REG RCR [...] completed all of his pretransplant evaluation at [facility] including cardiology visit 11 9 which showed ejection fraction 60%. I have contacted Dr. Hall who noted that today will be his last day of Velcade and we will hold his daratumumab. He was to have a COVID-19 teston 07/11/2020 for planned stem cell collection 07/17 and transplant on 07/23. I clarified with the staff at [facility] this this may be performed at [facility] and forwarded to them. His neuropathy in [...] has remarkably improved (>90% reduction past month). [place] light chains decreased from 12,000 to 42. [...] marijuana and would discuss this with his resident associate whetherthis would interfere with dialysis. We will also follow closely for cytopenias and reviewed infectious precautions. He has a son from [place] who plans to visit on Thursday and [...] but he may address this with our [facility] nutrition team. He will also receivechemotherapy class with our nurses in the infusion center. PRELIMINARY HISTORY (from initial consult 03/08/2020): This is a 75-year-old male who was transferred from [place] emergency room by [facility] due to critical [...] to be coordinated with nursing staffdue to [place] [address] visitor restriction policy. - Summary of Therapies [...] 0 autologous stem cell transplant 07/23/2020 at [facility]. ROS Details: All systems reviewed & [...] Negative for environmental allergies and food allergies. [facility] - History Attestation statement: The following information [...] Neut % (Auto)77.6, Lymph % (Auto) 12.3, [place] % (Auto) 7.3, Eos % (Auto) 2.1, Baso % (Auto) 0.7, Neut # (Auto) 6.7, Lymph # (Auto) 1.1, [place] # (Auto) 0.6, Eos # (Auto) 0.2,Baso # (Auto) 0.1, Nucleated RBC % (auto) 0.0 - Other Results Results/Comments: [facility] [address] [place] [address] and TRANSTHORACIC ECHOCARDIOGRAM REPORT Patient Name: PATSY Suarez Physician: [id number] Ti Grayson MD Study Date: 06/25/2020 Referring Physician: Quique Hall MRN/PID: [id number] PCP: Accession/Order#: [id number] Department Location: [facility] Echo Lab Date of : 1945 Fellow: Gender: M Nurse: Admit Date: Style Advisor: Lavonne Norris Tam [facility] Admission Status: Outpatient Additional Staff: Height: 180.34 cm CC Report to: Weight: 90.72 kg Study Type: Onco-Cardiology Echo BSA: 2.11 m2 Blood Pressure: 135 /82 mmHg Diagnosis/ICD: Z94.84-Stem cell transplant status Indication: Multiple myeloma; Stem-cell transplant Procedure/CPT: Echo Complete w Full Doppler-23200; 3D Rendering w/o independent workstation-[id number]; Myocardial Strain Imaging-26481 CONCLUSIONS: 1. The left ventricular systolic function is normal with a 60% estimated ejection fraction. 2. Spectral Doppler shows an impaired relaxation pattern of left ventricular diastolic filling. 3. Mild aortic valve stenosis. 4.Strain values are equivocal. [id number] Ti Grayson MD Electronically signed on 06/25/2020 [...] management will occur as an inpatient in [place]. Increased peripheral neuropathy complaints in bilateral hands [...] for coordination of care (as documented) and bnxs-hs-tuyo counseling of patient and/or family. Dictated By: Brook Huddleston MD DD/ 0904 Signed By: <Electronically signed by MD Brook Huddleston> 07/02/20 6623 [facility] Work Phone: 1(596) 735-838410-19-2020 Progress note Author Brook Huddleston [facility] June 04, 2020 12:42pm Note Date/Time June 04, 2020 8 :39am [facility] [place] [id number] Hem/Onc Follow Up Note - OP Signed Patient: Patsy Cunningham MR#: [id number] : 1945 Acct:[id number] Age/Sex: 75 / M Type: REG RCR Copies to: Quique Hall MD [facility] Palliative Helen Heath MD~ Subjective Date/Time of [...] has remarkably improved (>90% reduction past month). [place] light chains decreased from 12,000 to 42. [...] marijuana and would discuss this with his resident associate whetherthis would interfere with dialysis. We will also follow closely for cytopenias and reviewed infectious precautions. He has a son from [place] who plans to visit on Thursday and [...] but he may address this with our [facility] nutrition team. He will also receivechemotherapy class with our nurses in the infusion center. PRELIMINARY HISTORY (from initial consult 03/08/2020): This is a 75-year-old male who was transferred from [place] emergency room by [facility] due to critical [...] Negative for environmental allergies and food allergies. [facility] - History Attestation statement: The following information [...] Neut % (Auto)68.4, Lymph % (Auto) 14.8, [place] % (Auto) 10.5, Eos % (Auto) 5.5, Baso % (Auto) 0.8, Neut # (Auto) 4.6, Lymph # (Auto) 1.0, [place] # (Auto) 0.7, Eos # (Auto) 0.4,Baso # (Auto) 0.1, Nucleated RBC % (auto) 0.0 05/24/20 10:02: Ur Random Albumin 50.8, U Random Total Protein 8.8, U Mumjs-7-Pccvvtsy (%) 6.8, U Random g-7-Mbgivrbx % 19.6, U Random b-Globulin % 14.9, [...] for coordination of care (as documented) and lkml-ib-lxqq counseling of patient and/or family. Dictated By: Brook Huddleston MD DD/ 0838 Signed By: <Electronically signed by MD Brook Huddleston> 06/04/20 [address] [facility] Work Phone: [phone] 241-625810-19-2020 Progress note Author Brook Flaquito [facility] June 04, 2020 12:42pm Note Date/Time June 04, 2020 8 :39am [facility] at [address] [address] Hem/Onc Follow Up Note - OP Signed Patient: Patsy Cunningham MR#: [id number] : 1945 Acct:[id number] Age/Sex: 75 / M Type: REG RCR Copies to: Quique Hall MD Medicine [facility] Palliative Helen Heath MD~ Subjective Date/Time of [...] has remarkably improved (>90% reduction past month). [place] light chains decreased from 12,000 to 42. Only concern is significant hyperglycemia with dexamethasone. 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 I will coordinate evaluation by Dr. Quique aHll for HDC/autologous stem cell transplant evaluation and [...] marijuana and would discuss this with his resident associate whetherthis would interfere with dialysis. We will also follow closely for cytopenias and reviewed infectious precautions. He has a son from [place] who plans to visit on Thursday and [...] but he may address this with our [facility] nutrition team. He will also receivechemotherapy class with our nurses in the infusion center. PRELIMINARY HISTORY (from initial consult 03/08/2020): This is a 75-year-old male who was transferred from [place] emergency room by [facility] due to critical [...] to be coordinated with nursing staffdue to [facility]-19 visitor restriction policy. - Summary of [...] Neut % (Auto)68.4, Lymph % (Auto) 14.8, [place] % (Auto) 10.5, Eos % (Auto) 5.5, Baso % (Auto) 0.8, Neut # (Auto) 4.6, Lymph # (Auto) 1.0, [place] # (Auto) 0.7, Eos # (Auto) 0.4,Baso # (Auto) 0.1, Nucleated RBC % (auto) 0.0 05/24/20 10:02: Ur Random Albumin 50.8, U Random Total Protein 8.8, U Misnf-8-Fnsnpkvd (%) 6.8, U Random n-2-Kmhaujvk % 19.6, U Random b-Globulin % 14.9, [...] by Dr. Hall malignanthematology). 06/04/2020: 25% DR Ngozumadarryl (100% all other meds) due to worsening [...] for coordination of care (as documented) and oljz-zy-fmlz counseling of patient and/or family. Dictated By: Brook Huddleston MD DD/ 0838 Signed By: <Electronically signed by MD Brook Huddleston> 06/04/20 [address] [facility] Work Phone: 1([phone] 263-973909-21-2020 Progress note Author Brook Huddleston [facility] May 07, 2020 10:50am Note Date/Time May 07, 2020 9:10am [facility] [place] [address] Hem/Onc Follow Up Note - OP Signed Patient: Patsy Cunningham MR#: [id number] : 1945 Acct:[id number] Age/Sex: 75 / M Type: REG RCR [...] has remarkably improved (>90% reduction past month). [place] light chains decreased from 12,000 to 42. [...] marijuana and would discuss this with his resident associate whetherthis would interfere with dialysis. We will also follow closely for cytopenias and reviewed infectious precautions. He has a son from [place] who plans to visit on Thursday and [...] but he may address this with our [facility] nutrition team. He will also receivechemotherapy class with our nurses in the infusion center. PRELIMINARY HISTORY (from initial consult 03/08/2020): This is a 75-year-old male who was transferred from [place] emergency room by [facility] due to critical potassium 8.7 with elevated [...] to be coordinated with nursing staffdue to [facility]. - Summary of Therapies [...] Negative for environmental allergies and food allergies. [facility] - History Attestation statement: The following information [...] % (Auto) 59.7, Lymph % (Auto) 19.5, [place] % (Auto) 16.9, Eos % (Auto) 3.4, Baso % (Auto) 0.5, Neut # (Auto) 3.2, Lymph # (Auto) 1.0, [place] # (Auto) 0.9 H, Eos # (Auto) 0.2, Baso # (Auto) 0.0, Nucleated RBC % (auto) 0.3 04/30/20 09:10: Urine Immunofixation 04/30/20 08:15: Serum Total Protein 6.0, Albumin (Send Out) 3.2, Globulin (PEP) 2.8, Albumin/Globulin (PEP) 1.1, Dyovb-1-Fsobevnkz 0.3, Lduho-2-Lbbajxunj 1.1 H,Beta Globulins 0.7, Gamma Globulins 0.7, M-Anselmo 0.5 H, PEP Note , MethylmalonicAcid 183, MMA Comment , IgG 763, IgA 36 L, IgM 31, Free [place] LC, Quant 22.5 H, Free Lambda LC, Quant 8.4, Free [place]/Lambda Ratio 2.68 H - Impressions No new [...] replacement. He will continue weekly vitamin D2 pdybtqh67,000 units orally for low 25 hydroxy vitamin [...] for coordination of care (as documented) and figw-jk-kogo counseling of patient and/or family. Dictated By: Brook Huddleston MD DD/ 8 Signed By: <Electronically signed by MD Brook Huddleston> 05/07/20 [address] [facility] Work Phone: [phone] 616-373409-21-2020 Progress note Author Brook Huddleston [facility] May 07, 2020 10:50am Note Date/Time May 07, 2020 9:10am [facility] [place] [address] Hem/Onc Follow Up Note - OP Signed Patient: Patsy Cunningham MR#: [id number] : 1945 Acct:[id number] Age/Sex: 75 / M Type: REG RCR [...] has remarkably improved (>90% reduction past month). [place] light chains decreased from 12,000 to 42. [...] marijuana and would discuss this with his resident associate whetherthis would interfere with dialysis. We will also follow closely for cytopenias and reviewed infectious precautions. He has a son from [place] who plans to visit on Thursday and [...] but he may address this with our [facility] nutrition team. He will also receivechemotherapy class with our nurses in the infusion center. PRELIMINARY HISTORY (from initial consult 03/08/2020): This is a 75-year-old male who was transferred from [place] emergency room by [facility] due to critical [...] to be coordinated with nursing staffdue to [facility]-19 visitor restriction policy. - Summary of [...] Negative for environmental allergies and food allergies. [facility] - History Attestation statement: The following information [...] % (Auto) 59.7, Lymph % (Auto) 19.5, [place] % (Auto) 16.9, Eos % (Auto) 3.4, Baso % (Auto) 0.5, Neut # (Auto) 3.2, Lymph # (Auto) 1.0, [place] # (Auto) 0.9 H, Eos # (Auto) 0.2, Baso # (Auto) 0.0, Nucleated RBC % (auto) 0.3 04/30/20 09:10: Urine Immunofixation 04/30/20 08:15: Serum Total Protein 6.0, Albumin (Send Out) 3.2, Globulin (PEP) 2.8, Albumin/Globulin (PEP) 1.1, Vpxqe-3-Bycosyytq 0.3, Qpqsh-0-Ewyhfravt 1.1 H,Beta Globulins 0.7, Gamma Globulins 0.7, M-Anselmo 0.5 H, PEP Note , MethylmalonicAcid 183, MMA Comment , IgG 763, IgA 36 L, IgM 31, Free [place] LC, Quant 22.5 H, Free Lambda LC, Quant 8.4, Free [place]/Lambda Ratio 2.68 H - Impressions No new [...] replacement. He will continue weekly vitamin D2 uirkcqq63,000 units orally for low 25 hydroxy vitamin [...] of kappa light chains (recommended by Dr. Hlal malignanthematology). - Chemo Plan Chemo Plan (Dose, [...] for coordination of care (as documented) and gtfe-io-ftcw counseling of patient and/or family. Dictated By: Brook Huddleston MD DD/ 0909 Signed By: <Electronically signed by MD Brook Huddleston> 05/07/20 [address] [facility] Work Phone: [phone] Progress note Author Brook Huddleston [facility] April 12, 2020 9:26am Note Date/Time April 09, 2020 8: 49am [facility] [place] [address] Hem/Onc Follow Up Note - OP Signed with Addtiffani Patient: Patsy Cunningham MR#: [id number] : 1945 Acct:[id number] Age/Sex: 75 / M Type: REG RCR [...] has remarkably improved (>90% reduction past month). [place] light chains decreased from 12,000 to 42. [...] marijuana and would discuss this with his resident associate whetherthis would interfere with dialysis. We will also follow closely for cytopenias and reviewed infectious precautions. He has a son from [place] who plans to visit on Thursday and [...] but he may address this with our [facility] nutrition team. He will also receivechemotherapy class with our nurses in the infusion center. PRELIMINARY HISTORY (from initial consult 03/08/2020): This is a 75-year-old male who was transferred from [place] emergency room by [facility] due to critical [...] to be coordinated with nursing staffdue to [facility]- visitor restriction policy. - Summary of [...] % (Auto) 65.3, Lymph % (Auto) 18.2, [place] % (Auto) 13.2, Eos % (Auto) 3.0, Baso % (Auto) 0.3, Neut # (Auto) 3.0, Lymph # (Auto) 0.8 L, [place] # (Auto) 0.6, Eos # (Auto) 0.1, Baso # (Auto) 0.0, Nucleated RBC % (auto) 0.3 04/02/20 13:55: Ur Random Albumin 38.7, U Random Total Protein 6.6, U Hxmdb-5-Rtwmwilj (%) 5.2, U Random d-2-Ooumjkaw % 16.3, U Random b-Globulin % 26.2, [...] % (Auto) 65.0, Lymph % (Auto) 18.1, [place] % (Auto) 14.5, Eos % (Auto) 2.0, Baso % (Auto) 0.4, Neut # (Auto) 2.9, Lymph # (Auto) 0.8 L, [place] # (Auto) 0.7, Eos # (Auto) 0.1, Baso # (Auto) 0.0, Nucleated RBC % (auto) 0.0 04/02/20 08:15: Serum Total Protein 6.8, Albumin (Send Out) 3.2, Globulin (PEP) 3.6, Albumin/Globulin (PEP) 0.9, Afluw-5-Lpwchoujh 0.3, Jliok-1-Jyiywarmn 1.1 H,Beta Globulins 0.8, Gevx-1-Dtslfazbnfnxq 5.5 H, Gamma Globulins 1.4, M-Anselmo 1.2H, PEP Note , IgG 1563, IgA 36 L, IgM 47, Serum Immunofixation , Free [place] LC, Quant 42.2 H, Free Lambda LC, Quant 12.4, Free [place]/Lambda Ratio 3.40 H 04/02/20 08:15: Lactate Dehydrogenase [...] ultrasound showed superficial thrombosis--I discussed with Dr. Josiah and we added heparin to dialysis. Today [...] for coordination of care (as documented) and eapt-cn-xpcq counseling of patient and/or family. Dictated By: Brook Huddleston MD DD/ 0848 Signed By: <Electronically signed by MD Brook Huddleston> 04/09/20 [address] [facility] Work Phone: [phone] Progress note Author Brook Huddleston [facility] April 12, 2020 9:26am Note Date/Time April 09, 2020 8: 49am [facility] [place] [address] Hem/Onc Follow Up Note - OP Signed with Addenda Patient: Patsy Cunningham MR#: [id number] : 1945 Acct:[id number] Age/Sex: 75 / M Type: REG RCR [...] has remarkably improved (>90% reduction past month). [place] light chains decreased from 12,000 to 42. [...] marijuana and would discuss this with his resident associate whetherthis would interfere with dialysis. We will also follow closely for cytopenias and reviewed infectious precautions. He has a son from [place] who plans to visit on Thursday and [...] but he may address this with our [facility] nutrition team. He will also receivechemotherapy class with our nurses in the infusion center. PRELIMINARY HISTORY (from initial consult 03/08/2020): This is a 75-year-old male who was transferred from [place] emergency room by [facility] due to critical [...] % (Auto) 65.3, Lymph % (Auto) 18.2, [place] % (Auto) 13.2, Eos % (Auto) 3.0, Baso % (Auto) 0.3, Neut # (Auto) 3.0, Lymph # (Auto) 0.8 L, [place] # (Auto) 0.6, Eos # (Auto) 0.1, Baso # (Auto) 0.0, Nucleated RBC % (auto) 0.3 04/02/20 13:55: Ur Random Albumin 38.7, U Random Total Protein 6.6, U Wstcu-5-Rdfjttft (%) 5.2, U Random s-3-Kfarhvyq % 16.3, U Random b-Globulin % 26.2, [...] % (Auto) 65.0, Lymph % (Auto) 18.1, [place] % (Auto) 14.5, Eos % (Auto) 2.0, Baso % (Auto) 0.4, Neut # (Auto) 2.9, Lymph # (Auto) 0.8 L, [place] # (Auto) 0.7, Eos # (Auto) 0.1, Baso # (Auto) 0.0, Nucleated RBC % (auto) 0.0 04/02/20 08:15: Serum Total Protein 6.8, Albumin (Send Out) 3.2, Globulin (PEP) 3.6, Albumin/Globulin (PEP) 0.9, Okdjy-3-Wjebzfbha 0.3, Sjdvq-4-Zqsjgyelg 1.1 H,Beta Globulins 0.8, Yzhw-3-Omsmlymfdcink 5.5 H, Gamma Globulins 1.4, M-Anselmo 1.2H, PEP Note , IgG 1563, IgA 36 L, IgM 47, Serum Immunofixation , Free [place] LC, Quant 42.2 H, Free Lambda LC, Quant 12.4, Free [place]/Lambda Ratio 3.40 H 04/02/20 08:15: Lactate Dehydrogenase [...] for coordination of care (as documented) and qnae-lv-oirp counseling of patient and/or family. Dictated By: Brook Huddleston MD DD/ 0848 Signed By: <Electronically signed by MD Brook Huddleston> 04/09/20 [address] [facility] Work Phone: [phone] Progress note Author Brook Huddleston [facility] March 14, 2020 10:13pm Note Date/Time March 14, 2020 3:52 pm [facility] [place] [address] Hem/Onc Follow Up Note - OP Signed Patient: Patsy Cunningham MR#: [id number] : 1945 Acct:[id number] Age/Sex: 75 / M Type: REG RCR [...] marijuana and would discuss this with his resident associate whetherthis would interfere with dialysis. We will also follow closely for cytopenias and reviewed infectious precautions. He has a son from [place] who plans to visit on Thursday and [...] a 75-year-old male who was transferred from [place] emergency room by [facility] due to critical potassium 8.7 with [...] Negative for environmental allergies and food allergies. [facility] - History Attestation statement: The following information [...] ferritin 600.3 03/08/20 04:39: PHA Creatinine Clear [id number], Sodium 126 L, Potassium 4.2,Chloride 92 L, [...] % (Auto) 68.2, Lymph % (Auto) 19.5, [place] % (Auto) 9.3, Eos % (Auto) 2.6, Baso % (Auto) 0.4, Neut # (Auto) 4.4, Lymph # (Auto) 1.2, [place] # (Auto) 0.6, Eos # (Auto) 0.2, [...] kappa, Glomerular Base Memb Ab 3, Free [place] LC, Quant 09572.9 H, Free Lambda LC, Quant11.9, Free [place]/Lambda Ratio 1063.02 H 03/05/2020: Serum protein electrophoresis [...] for coordination of care (as documented) and eyfj-in-wbuk counseling of patient and/or family. Dictated By: Brook Huddleston MD DD/ 1552 Signed By: <Electronically signed by MD Brook Huddleston> 03/14/20 [address] [facility] Work Phone: [phone] Progress note Author Brook Huddleston [facility] March 14, 2020 10:13pm Note Date/Time March 14, 2020 3:52 pm [facility] [place] [address] Hem/Onc Follow Up Note - OP Signed Patient: Patsy Cunningham MR#: [id number] : 1945 Acct:[id number] Age/Sex: 75 / M Type: REG RCR [...] marijuana and would discuss this with his resident associate whetherthis would interfere with dialysis. We will also follow closely for cytopenias and reviewed infectious precautions. He has a son from [place] who plans to visit on Thursday and [...] but he may address this with our [facility] nutrition team. He will also receivechemotherapy class with our nurses in the infusion center. PRELIMINARY HISTORY (from initial consult 03/08/2020): This is a 75-year-old male who was transferred from [place] emergency room by [facility] due to critical potassium 8.7 with [...] to be coordinated with nursing staffdue to [facility]-19 visitor restriction policy. - Summary of [...] Negative for environmental allergies and food allergies. [facility] - History Attestation statement: The following information [...] ferritin 600.3 03/08/20 04:39: PHA Creatinine Clear [id number], Sodium 126 L, Potassium 4.2,Chloride 92 L, [...] % (Auto) 68.2, Lymph % (Auto) 19.5, [place] % (Auto) 9.3, Eos % (Auto) 2.6, Baso % (Auto) 0.4, Neut # (Auto) 4.4, Lymph # (Auto) 1.2, [place] # (Auto) 0.6, Eos # (Auto) 0.2, [...] kappa, Glomerular Base Memb Ab 3, Free [place] LC, Quant 25516.9 H, Free Lambda LC, Quant11.9, Free [place]/Lambda Ratio 1063.02 H 03/05/2020: Serum protein electrophoresis [...] for coordination of care (as documented) and sifg-xl-qpkd counseling of patient and/or family. Dictated By: Brook Huddleston MD DD/ 1552 Signed By: <Electronically signed by MD Brook Huddleston> 03/14/20 [address] [facility] Work Phone: Discharge summary Author Clarence Miller [facility] January 22, 2024 5:01pm Note Date/Time January 22, 2024 5:01p m [facility] [address] [place] [address] Discharge Summary Signed Patient: Patsy Cunningham MR#: [id number] : 1945 Acct:[id number] Age/Sex: 78 / M Adm Date: 4 Loc: Room: [address] [place] [address]: Clarence Miller DO Copies to: [...] 8-year-old male presenting to the emergency department 6/4/24 with complaints of generalized weakness and malaise. [...] Helen Heath MD [Primary Care Provider] - 06/11/24 9:45 am (Post hospital appointment. Please call [...] % (Auto) 72.2, Lymph % (Auto) 17.0, [place] % (Auto) 7.2, Eos % (Auto) 3.3, Baso % (Auto) 0.3, Nucleat RBC Rel Count 0.1, Neut # (Auto) 5.8, Lymph # (Auto) 1.4, [place] # (Auto) 0.6, Eos # (Auto) 0.3, [...] 47 Signed By: <Electronically signed by Clarence Miller, DO> 01/22/24 [address] [facility] Work Phone: Evaluation + Plan note No data available for this section [facility] evaluation + Plan note Future Appointments Appointment Date:04/01/2022 08:45:00 AM Scheduled Provider:Patsy Seals Jr., MD Location:[facility] Appointment Type:URO Office Visit Appointment Date:08/05/2022 08:45:00 AM Scheduled Provider:Patsy Seals Jr., MD Location:[facility] Appointment Type:URO Office Visit [facility] evaluation + Plan note Future Appointments Appointment Date:04/22/2022 10:30:00 AM Scheduled Provider:Patsy Seals Jr., MD Location:[facility] Appointment Type:URO Office Visit Appointment Date:08/05/2022 08:45:00 AM Scheduled Provider:Patsy Seals Jr., MD Location:[facility] Appointment Date:04/28/2022 12:15:00 PM Scheduled Provider: Location:[facility] Appointment Type:Urology CALL PAT FT Appointment Date:05/05/2022 09:30:00 AM Scheduled Provider: Location:[facility] Appointment Type:Urology FT Appointment Date:08/05/2022 08:45:00 AM Scheduled Provider:Patsy Seals Jr., MD Location:[facility] Appointment Type:URO Office Visit [facility] Evaluation + Plan note Future Appointments Appointment Date:04/28/2022 12:15:00 PM Scheduled Provider: Location:[facility] Appointment Type:Urology CALL PAT FT Appointment Date:05/05/2022 09:30:00 AM Scheduled Provider: Location:[facility] Appointment Type:Urology FT Appointment Date:08/05/2022 08:45:00 AM Scheduled Provider:Patsy Seals Jr., MD Location:[facility] Appointment Type:URO Office Visit Diagnostic Tests Pending * Urine [facility]ments Appointment Date:05/06/2022 01:00:00 PM Scheduled Provider: Location:[facility] Appointment Type:URO Nurse Visit Appointment Date:06/04/2022 10:00:00 AM Scheduled Provider:Orquidea Cortez MD [facility] Type:URO Office Visit Appointment Date:08/05/2022 08:45:00 AM Scheduled Provider:Patsy Seals Jr., MD Location:[facility] App[facility]ment Type[facility] App[facility]ments Appointment Date:06/04/2022 10:00:00 AM Scheduled Provider:Orquidea Cortez MD [facility] Type:URO Office Visit Appointment Date:08/05/2022 08:45:00 AM Scheduled Provider:Patsy Seals Jr., MD Location:[facility] Appointment Type:URO Office Visit [facility] Evaluation + Plan note Future Appointments Appointment Date:08/06/2022 10:00:00 AM Scheduled Provider:Orquidea Cortez MD [facility] Type:URO Office Visit Diagnostic Tests Pending * Urine Culture [facility] Appointment Date:08/06/2022 10:00:00 AM Scheduled Provider:Orquidea Cortez MD [facility] Type:URO Office Visit [facility] evaluation + Plan note Future Appointments Appointment Date:07/04/2022 01:00:00 PM Scheduled Provider:Orquidea Cortez MD Location:[facility] Appointment Type:URO Office Visit Appointment Date:08/06/2022 10:00:00 AM Scheduled Provider:Orquidea Cortez MD Location:[facility] Appointment Type:URO Office Visit [facility] Evaluation + Plan note Future Appointments Appointment Date:07/07/2022 10:15:00 AM Scheduled Provider: Location:[facility] Appointment Type:Urology FT Appointment Date:07/07/2022 11:45:00 AM Scheduled Provider: Location:[facility] Appointment Type:Urology CALL PAT FT Appointment Date:08/06/2022 10:00:00 AM Scheduled Provider:Orquidea Cortez MD Location:[facility] Appointment Type:URO Office Visit Diagnostic Tests Pending * UTI ([facility]) 07/04/22 [facility] Evaluation + Plan note Future Appointments Appointment Date:08/25/2022 11:00:00 AM Scheduled Provider: Location:[facility] Appointment Type:URO Nurse Visit [facility] evaluation + Plan note Future Appointments Appointment Date:08/25/2022 11:00:00 AM Scheduled Provider: Location:[facility] Appointment Type:URO Nurse Visit Diagnostic Tests Pending * Urine Culture [facility] Appointment Date:09/18/2022 09:15:00 AM Scheduled Provider:Orquidea Cortez MD Location:[facility] Appointment Type:URO Office Visit [facility] evaluation + Plan note Future Appointments Appointment Date:03/18/2023 10:45:00 AM Scheduled Provider:Orquidea Cortez MD Location:[facility] Appointment Type:URO Office Visit [facility] evaluation + Plan note Future Appointments Appointment Date:10/17/2022 08:45:00 AM Scheduled Provider: Location:[facility] Appointment Type:Urology CALL PAT FT Appointment Date:10/20/2022 08:00:00 AM Scheduled Provider: Location:[facility] Appointment Type:Urology FT Appointment Date:03/18/2023 10:45:00 AM Scheduled Provider:Orquidea Cortez MD Location:[facility] Appointment Type:URO Office Visit [facility] Evaluation + Plan note Future Appointments Appointment Date:11/21/2022 09:45:00 AM Scheduled Provider:Orquidea Cortez MD Location:[facility] Appointment Type:URO Office Visit Appointment Date:03/18/2023 10:45:00 AM Scheduled Provider:Orquidea Cortez MD Location:[facility] Appointment Type:URO Office Visit Diagnostic Tests Pending * Basic Metabolic Panel 11/03/22 [facility] Evaluation + Plan note Future Appointments Appointment Date:01/16/2023 10:00:00 AM Scheduled Provider: Location:[facility] Appointment Type:URO Nurse Visit Appointment Date:03/18/2023 10:45:00 AM Scheduled Provider:Orquidea Cortez MD Location:[facility] Appointment Type:URO Office Visit [facility] Evaluation + Plan note Future Appointments Appointment Date:02/13/2023 09:00:00 AM Scheduled Provider:Orquidea Cortez MD Location:[facility] Appointment Type:URO Office Visit Appointment Date:03/18/2023 10:45:00 AM Scheduled Provider:Orquidea Cortez MD [facility] Appointment Type:URO Office Visit [facility] [place] Evaluation + Plan note Future Appointments Appointment Date:07/22/2023 09:15:00 AM Scheduled Provider:Orquidea Cortez MD [facility] Appointment Type:URO Office Visit Diagnostic Tests Pending * [facility] Appointment Date:08/11/2023 10:30:00 AM Scheduled Provider: Location:[facility] [place] Appointment Type:URO Nurse Visit [facility] evaluation + Plan note Future Appointments Appointment Date:08/31/2023 11:30:00 AM Scheduled Provider: Location:[facility] Appointment Type:URO Nurse Visit [facility] Evaluation + Plan note Future Appointments Appointment Date:08/31/2023 11:30:00 AM Scheduled Provider: Location:[facility] Appointment Type:URO Nurse Visit Diagnostic Tests Pending * [facility] Appointment Date:10/12/2023 11:00:00 AM Scheduled Provider: Location:[facility] Appointment Type:URO Nurse Visit [facility] evaluation + Plan note Future Appointments Appointment Date:11/25/2023 01:00:00 PM Scheduled Provider: Location:[facility] [place] Appointment Type:URO Nurse Visit Appointment Date:01/28/2024 10:15:00 AM Scheduled Provider:Orquidea Cortez MD Location:[facility] [place] Appointment Type:URO Office Visit [facility] Evaluation + Plan note Future Appointments Appointment Date:12/18/2023 11:00:00 AM Scheduled Provider: Location:[facility] [place] Appointment Type:URO Nurse Visit Appointment Date:01/28/2024 10:15:00 AM Scheduled Provider:Orquidea Cortez MD Location:[facility] Appointment Type:URO Office Visit [facility] Evaluation + Plan note Future Appointments Appointment Date:12/18/2023 11:00:00 AM Scheduled Provider: Location:[facility] Appointment Type:URO Nurse Visit Appointment Date:01/28/2024 10:15:00 AM Scheduled Provider:Orquidea Cortez MD Location:[facility] Appointment Type:URO Office Visit Diagnostic Tests Pending * [facility]ments Appointment Date:01/08/2024 11:00:00 AM Scheduled Provider: Location:[facility] Appointment Type:URO Nurse Visit Appointment Date:01/28/2024 10:15:00 AM Scheduled Provider:Orquidea Cortez MD Location:[facility] Appointment Type:URO Office Visit [facility] of [facility] evaluation + Plan note Future Appointments Appointment Date:01/28/2024 10:15:00 AM Scheduled Provider:Orquidea Cortez MD Location:[facility] Appointment Type:URO Office Visit [facility] evaluation + Plan note Future Appointments Appointment Date:01/28/2024 10:15:00 AM Scheduled Provider:Orquidea Cortez MD Location:[facility] Appointment Type:URO Office Visit Diagnostic Tests Pending * [facility]ments Appointment Date:01/28/2024 10:15:00 AM Scheduled Provider:Orquidea Cortez MD Location:[facility] Appointment Type:URO Office Visit Diagnostic Tests Pending * [facility] App[facility]ments Appointment Date:03/15/2024 02:30:00 PM Scheduled Provider:CARLEY Damian APRN, [place] Location:[facility] Appointment Type:URO Office Visit [facility] Evaluation + Plan note Future Appointments Appointment Date:04/05/2024 03:30:00 PM Scheduled Provider:CARLEY Damian APRN, [place] Location:[facility] Appointment Type:URO Office Visit [facility] of [facility] evaluation + Plan note Future Appointments Appointment Date:04/05/2024 03:30:00 PM Scheduled Provider:CARLEY Damian APRN, [place] Location:[facility] Appointment Type:URO Office Visit Diagnostic Tests Pending * Urine Culture 03/15/24 [facility] Evaluation + Plan note Future Appointments Appointment Date:05/17/2024 02:30:00 PM Scheduled Provider:CARLEY Damian APRN, [place] Location:[facility] Appointment Type:URO Office Visit [facility] evaluation + Plan note Future Appointments Appointment Date:06/10/2024 11:30:00 AM Scheduled Provider:Orquidea Cortez MD Location:[facility] Appointment Type:URO Office Visit [facility] of [facility] evaluation + Plan note Future Appointments Appointment Date:06/21/2024 12:30:00 PM Scheduled Provider:CARLEY Damian APRN, [place] Location:[facility] Appointment Type:URO Office Visit [facility] evaluation + Plan note Future Appointments Appointment Date:07/12/2024 09:00:00 AM Scheduled Provider:CARLEY Damian APRN, [place] Location:[facility] Appointment Type:URO Office Visit [facility] evaluation + Plan note Future Appointments Appointment Date:08/09/2024 11:00:00 AM Scheduled Provider:CARLEY Damian APRN [place] Location:[facility] Appointment Type:URO Office Visit [facility] evaluation + Plan note Future Appointments Appointment Date:08/16/2024 11:20:00 AM Scheduled Provider:CARLEY Damian APRN [place] Location:[facility] Appointment Type:URO Office Visit Appointment Date:09/14/2024 10:45:00 AM Scheduled Provider:Orquidea Cortez MD Location:[facility] Appointment Type:URO Office Visit [facility] evaluation + Plan note Future Appointments Appointment Date:09/08/2024 03:10:00 PM Scheduled Provider:CARLEY Damian APRN, [place] Location:[facility] Appointment Type:URO Complex Office Visit Appointment Date:09/14/2024 10:45:00 AM Scheduled Provider:Orquidea Cortez MD Location:[facility] Appointment Type:URO Office Visit Diagnostic Tests Pending * Urine Culture 08/16/24 [facility] Evaluation + Plan note Future Appointments Appointment Date:09/08/2024 03:10:00 PM Scheduled Provider:CARLEY Damian APRN [place] Location:[facility] Appointment Type:URO Complex Office Visit Appointment Date:09/14/2024 10:45:00 AM Scheduled Provider:Orquidea Cortez MD Location:[facility] Appointment Type:URO Office Visit [facility] evaluation + Plan note Future Appointments Appointment Date:09/08/2024 03:10:00 PM Scheduled Provider:CARLEY Damian APRN, [place] Location:[facility] Appointment Type:URO Complex Office Visit [facility] of [facility] evaluation + Plan note Future Appointments Appointment Date:09/27/2024 12:50:00 PM Scheduled Provider:CARLEY Damian APRN, [place] Location:[facility] Appointment Type:URO Office Visit [facility] evaluation + Plan note Future Appointments Appointment Date:09/27/2024 12:50:00 PM Scheduled Provider:CARLEY Damian APRN, [place] Location:[facility] Appointment Type:URO Office Visit Diagnostic Tests Pending * Urine Culture 09/08/24 [facility] evaluation + Plan note Future Appointments Appointment Date:10/21/2024 02:30:00 PM Scheduled Provider:Pratima Reno PA-C Location:[facility] Appointment Type:URO Office Visit [facility] Evaluation + Plan note Future Appointments Appointment Date:11/30/2024 12:30:00 PM Scheduled Provider:Pratima Reno PA-C Location:[facility] Appointment Type:URO Office Visit Diagnostic Tests Pending * Urine Culture 11/07/24 [facility] evaluation + Plan note Future Appointments Appointment Date:01/11/2025 11:00:00 AM Scheduled Provider:Pratima Reno PA-C [facility] Appointment Type:URO Office Visit Appointment Date:02/23/2025 01:00:00 PM Scheduled Provider:Orquidea Cortez MD Location:[facility] Appointment Type:URO Office Visit Diagnostic Tests Pending * Urine Culture 12/21/24 [facility] evaluation + Plan note Future Appointments Appointment Date:02/01/2025 12:30:00 PM Scheduled Provider:Pratima Reno PA-C [facility] Appointment Type:URO Office Visit Appointment Date:02/23/2025 01:00:00 PM Scheduled Provider:Orquidea Cortez MD Location:[facility] Appointment Type:URO Office Visit [facility] evaluation + Plan note Future Appointments Appointment Date:02/01/2025 12:30:00 PM Scheduled Provider:Pratima Reno PA-C Location:[facility] Appointment Type:URO Office Visit Appointment Date:02/23/2025 01:00:00 PM Scheduled Provider:Orquidea Cortez MD Location:[facility] Appointment Type:URO Office Visit Diagnostic Tests Pending * Urine Culture 01/11/25 [facility] Evaluation + Plan note Future Appointments Appointment Date:02/22/2025 12:30:00 PM Scheduled Provider:Pratima Reno PA-C Location:[facility] Appointment Type:URO Office Visit Appointment Date:02/23/2025 01:00:00 PM Scheduled Provider:Orquidea Cortez MD Location:[facility] Appointment Type:URO Office Visit [facility] evaluation + Plan note Future Appointments Appointment Date:02/23/2025 01:00:00 PM Scheduled Provider:Orquidea Cortez MD Location:[facility] Appointment Type:URO Office Visit Appointment Date:03/15/2025 11:00:00 AM Scheduled Provider:Pratima Reno PA-C Location:[facility] Appointment Type:URO Office Visit [facility] evaluation + Plan note Future Appointments Appointment Date:03/03/2025 03:30:00 PM Scheduled Provider: Location:[facility] Appointment Type:Surgical PAT FT Appointment Date:03/07/2025 12:45:00 PM Scheduled Provider: Location:[facility] Appointment Type:Surgery FT Appointment Date:03/15/2025 11:00:00 AM Scheduled Provider:Pratima Reno PA-C Location:[facility] Appointment Type:URO Office Visit [facility] Evaluation + Plan note Future Appointments Appointment Date:04/25/2025 01:45:00 PM Scheduled Provider:Orquidea Cortez MD Location:[facility] Appointment Type:URO Office Visit Diagnostic Tests Pending * Basic Metabolic Panel 03/27/25 [facility] evaluation + Plan note Future Appointments Appointment Date:04/25/2025 01:45:00 PM Scheduled Provider:Orquidea Cortez MD Location: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 B12 deficiency chronic Chemotherapy-induced peripheral neuropathy chronic Encounter for chemotherapy management chronic History of hemodialysis 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 Iron deficiency anemia chron ic 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 Rash and nonspecific skin eruption chronic Steroid-induced diabetes mellitus chronic Superficial thrombophlebitis of left upper extremity chronic Acute renal failure on dialysis resolved [facility] Work Phone: evaluzuaei note* Diagnosis Prostate cancer (HCC)- Primary Malignant neoplasm of prostate Acquired ureteral stricture Neurogenic bladder Neurogenic bladder, NOS Benign prostatic hyperplasia with urinary obstruction [facility]- Primary Preoperative examination, [...] Ac[facility] Diagnosis Onset Date Resolution Status Anemia of renal disease 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 B12 deficiency chronic Chemotherapy-induced peripheral neuropathy chronic Encounter for chemotherapy management chronic Encounter for coordination of complex care chronic History of anemia due to vitamin B12 deficiency chronic History of hemodialysis 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 Iron deficiency anemia chron ic 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 Rash and nonspecific skin eruption chronic Steroid-induced diabetes mellitus chronic Superficial thrombophlebitis of left upper extremity chronic Urinary incontinence chronic Acute renal failure on dialysis resolved [facility] Work Phone: Evaluation noteNo assessment information available [facility] Work Phone: Evaluation note* Diagnosis Onset Date Resolution Status Anemia of renal disease 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 B12 deficiency chronic Chemotherapy-induced peripheral neuropathy chronic Encounter for chemotherapy management chronic Encounter for coordination of complex care chronic History of anemia due to vitamin B12 deficiency chronic History of hemodialysis 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 Iron deficiency anemia chron ic 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 Rash and nonspecific skin eruption chronic Steroid-induced diabetes mellitus chronic Superficial thrombophlebitis of left upper extremity chronic Urinary incontinence chronic Acute renal failure on dialysis resolved Chronic suprapubic catheter acute Anemia of renal disease 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 B12 deficiency chronic Encounter for coordination of complex care chronic History of hemodialysis 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 [facility] Work Phone: Evaluation note* Diagnosis Onset Date Resolution Status Chronic suprapubic catheter acute Anemia of renal disease 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 B12 deficiency chronic Encounter for coordination of complex care chronic History of hemodialysis 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 Anemia of chronic renal failure, stage 4 (severe) acute 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 Hydronephrosis acute Hyperkalemia acute [id number] acute Hypophosphatemia acute Stage 3b chronic kidney disease (CKD) acute 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 Anemia of renal disease 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 B12 deficiency chronic Chemotherapy-induced peripheral neuropathy chronic Encounter for chemotherapy management chronic Encounter for coordination of complex care chronic History of anemia due to vitamin B12 deficiency chronic History of hemodialysis 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 Iron deficiency anemia chron ic 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 Rash and nonspecific skin eruption chronic Steroid-induced diabetes mellitus chronic Superficial thrombophlebitis of left upper extremity chronic Urinary incontinence chronic Acute renal failure on dialysis resolved [facility] Work Phone: Evaluation note* Diagnosis Onset Date Resolution Status Anemia of chronic renal failure, stage 4 (severe) acute 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 Hydronephrosis acute Hyperkalemia acute [id number] acute Hypophosphatemia acute Stage 3b chronic kidney disease (CKD) acute 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 Anemia of renal disease 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 B12 deficiency chronic Chemotherapy-induced peripheral neuropathy chronic Encounter for chemotherapy management chronic Encounter for coordination of complex care chronic History of anemia due to vitamin B12 deficiency chronic History of hemodialysis 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 Iron deficiency anemia chron ic 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 Rash and nonspecific skin eruption chronic Steroid-induced diabetes mellitus chronic Superficial thrombophlebitis of left upper extremity chronic Urinary incontinence chronic Acute renal failure on dialysis resolved [place]INA (acute kidney injury) [place] UTI (urinary tract infection) acute [facility] Work Phone: Evaluation note* Diagnosis Onset Date Resolution Status Anemia of chronic renal failure, stage 4 (severe) acute 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 Hydronephrosis acute Hyperkalemia acute [id number] acute Hypophosphatemia acute Stage 3b chronic kidney disease (CKD) acute 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 Anemia of renal disease 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 B12 deficiency chronic Chemotherapy-induced peripheral neuropathy chronic Encounter for chemotherapy management chronic Encounter for coordination of complex care chronic History of anemia due to vitamin B12 deficiency chronic History of hemodialysis 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 Iron deficiency anemia chron ic 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 Rash and nonspecific skin eruption chronic Steroid-induced diabetes mellitus chronic Superficial thrombophlebitis of left upper extremity chronic Urinary incontinence chronic Acute renal failure on dialysis resolved RINA (acute kidney injury) [place] Chronic suprapubic catheter acute Complicated urinary tract infection acute 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 Hydronephrosis acute Stage 3b chronic kidney disease (CKD) acute UTI (urinary tract infection) acute [facility] Work Phone: Evaluation note* Diagnosis Onset Date Resolution Status Anemia of renal disease 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 B12 deficiency chronic Chemotherapy-induced peripheral neuropathy chronic Encounter for chemotherapy management chronic Encounter for coordination of complex care chronic History of anemia due to vitamin B12 deficiency chronic History of hemodialysis 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 Iron deficiency anemia chron ic 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 Rash and nonspecific skin eruption chronic Steroid-induced diabetes mellitus chronic Superficial thrombophlebitis of left upper extremity chronic Urinary incontinence chronic Acute renal failure on dialysis resolved RINA (acute kidney injury) [place] Chronic suprapubic catheter acute Complicated urinary tract infection acute 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 Stage 3b chronic kidney disease (CKD) acute Chronic suprapubic catheter acute Anemia of renal disease 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 B12 deficiency chronic Encounter for coordination of complex care chronic History of hemodialysis 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 [facility] Work Phone: Evaluation note* Diagnosis Onset Date Resolution Status RINA (acute kidney injury) [place] Chronic suprapubic catheter acute Complicated urinary tract infection acute 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 Stage 3b chronic kidney disease (CKD) acute Anemia of chronic renal failure, stage 4 (severe) acute Chronic suprapubic catheter acute Anemia of renal disease 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 B12 deficiency chronic Encounter for coordination of complex care chronic History of hemodialysis 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 Anemia of renal disease 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 B12 deficiency chronic Chemotherapy-induced peripheral neuropathy chronic Encounter for chemotherapy management chronic Encounter for coordination of complex care chronic History of anemia due to vitamin B12 deficiency chronic History of hemodialysis 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 Iron deficiency anemia chron ic 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 Rash and nonspecific skin eruption chronic Steroid-induced diabetes mellitus chronic Superficial thrombophlebitis of left upper extremity chronic Urinary incontinence chronic Acute renal failure on dialysis resolved [facility] Work Phone: Evaluation note* Diagnosis Onset Date Resolution Status RINA (acute kidney injury) [place] Chronic suprapubic catheter acute Complicated urinary tract infection acute 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 Stage 3b chronic kidney disease (CKD) acute Anemia of chronic renal failure, stage 4 (severe) acute Chronic suprapubic catheter acute Anemia of renal disease 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 B12 deficiency chronic Encounter for coordination of complex care chronic History of hemodialysis 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 Anemia of renal disease 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 B12 deficiency chronic Chemotherapy-induced peripheral neuropathy chronic Encounter for chemotherapy management chronic Encounter for coordination of complex care chronic History of anemia due to vitamin B12 deficiency chronic History of hemodialysis 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 Iron deficiency anemia chron ic 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 Rash and nonspecific skin eruption chronic Steroid-induced diabetes mellitus chronic Superficial thrombophlebitis of left upper extremity chronic Urinary incontinence chronic Acute renal failure on dialysis resolved Anemia of chronic renal failure, stage 4 (severe) acute 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 Hyperkalemia acute [id number] acute Hypophosphatemia acute Stage 3b chronic kidney disease (CKD) acute 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 [facility] Work Phone: Evaluation note* Diagnosis Onset Date Resolution Status Anemia of chronic renal failure, stage 4 (severe) acute 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 Hyperkalemia acute [id number] acute Hypophosphatemia acute Stage 3b chronic kidney disease (CKD) acute 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 Anemia of renal disease 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 B12 deficiency chronic Chemotherapy-induced peripheral neuropathy chronic Encounter for chemotherapy management chronic Encounter for coordination of complex care chronic History of anemia due to vitamin B12 deficiency chronic History of hemodialysis 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 Iron deficiency anemia chron ic 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 Rash and nonspecific skin eruption chronic Steroid-induced diabetes mellitus chronic Superficial thrombophlebitis of left upper extremity chronic Urinary incontinence chronic Acute renal failure on dialysis resolved Anemia of chronic renal failure, stage 4 (severe) acute Chronic suprapubic catheter acute Anemia of renal disease 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 B12 deficiency chronic Encounter for coordination of complex care chronic History of hemodialysis 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-induced diabetes mellitus [facility] Work Phone: Evaluation note* Diagnosis Onset Date Resolution Status Anemia of chronic renal failure, stage 4 (severe) acute 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 Hyperkalemia acute [id number] acute Hypophosphatemia acute Stage 3b chronic kidney disease (CKD) acute 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 Anemia of renal disease 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 B12 deficiency chronic Chemotherapy-induced peripheral neuropathy chronic Encounter for chemotherapy management chronic Encounter for coordination of complex care chronic History of anemia due to vitamin B12 deficiency chronic History of hemodialysis 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 Iron deficiency anemia chron ic 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 Rash and nonspecific skin eruption chronic Steroid-induced diabetes mellitus chronic Superficial thrombophlebitis of left upper extremity chronic Urinary incontinence chronic Acute renal failure on dialysis resolved Anemia of chronic renal failure, stage 4 (severe) acute Chronic suprapubic catheter acute Anemia of renal disease 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 B12 deficiency chronic Encounter for coordination of complex care chronic History of hemodialysis 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 Acute kidney injury superimposed on CKD acute Hydronephrosis, left acute Hyperkalemia acute [facility] Work Phone: Evaluation note* Diagnosis Onset Date Resolution Status Anemia of chronic renal failure, stage 4 (severe) acute 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 Hyperkalemia acute [id number] acute Hypophosphatemia acute Stage 3b chronic kidney disease (CKD) acute 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 Anemia of renal disease 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 B12 deficiency chronic Chemotherapy-induced peripheral neuropathy chronic Encounter for chemotherapy management chronic Encounter for coordination of complex care chronic History of anemia due to vitamin B12 deficiency chronic History of hemodialysis 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 Iron deficiency anemia chron ic 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 Rash and nonspecific skin eruption chronic Steroid-induced diabetes mellitus chronic Superficial thrombophlebitis of left upper extremity chronic Urinary incontinence chronic Acute renal failure on dialysis resolved Anemia of chronic renal failure, stage 4 (severe) acute Chronic suprapubic catheter acute Anemia of renal disease 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 B12 deficiency chronic Encounter for coordination of complex care chronic History of hemodialysis 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 Acute kidney injury superimposed on CKD acute RINA (acute kidney injury) [place] Hydronephrosis, left acute Hyperkalemia acute [facility] Work Phone: Evaluation note* Diagnosis Onset Date Resolution Status Anemia of chronic renal failure, stage 4 (severe) acute 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 Hyperkalemia acute [id number] acute Hypophosphatemia acute 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 Anemia of renal disease 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 B12 deficiency chronic Chemotherapy-induced peripheral neuropathy chronic Encounter for chemotherapy management chronic Encounter for coordination of complex care chronic History of anemia due to vitamin B12 deficiency chronic History of hemodialysis 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 Iron deficiency anemia chron ic Light [...] acute Hyperkalemia acute Anemia of renal disease 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 B12 deficiency chronic Encounter for coordination of complex care chronic History of hemodialysis 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 Acute kidney injury superimposed on CKD acute RINA (acute kidney injury) [place] Chronic suprapubic catheter acute CKD (chronic kidney disease) stage 4, GFR 15-29 ml/min acute Hydronephrosis, left acute Hyperkalemia acute [id number] acute Noncompliant bladder acute Type 2 diabetes mellitus wit h diabetic chronic kidney disease acute Anemia of renal disease 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 [facility] Work Phone: Evaluation note* Diagnosis Onset Date Resolution Status B12 deficiency chronic Chemotherapy-induced peripheral neuropathy chronic Encounter for chemotherapy management chronic Encounter for coordination of complex care chronic History of anemia due to vitamin B12 deficiency chronic History of hemodialysis 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 Iron deficiency anemia chron ic 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 Rash and nonspecific skin eruption chronic Steroid-induced diabetes mellitus chronic Superficial thrombophlebitis of left upper extremity chronic Urinary incontinence chronic Acute renal failure on dialysis resolved Anemia of chronic renal failure, stage 4 (severe) acute B12 deficiency chronic Encounter for coordination of complex care chronic History of hemodialysis 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-induced diabetes mellitus [facility] Work Phone: Evaluation note* Diagnosis Pre-op evaluation- [...] kinking [facility] ureter [facility] Obaydah Daromar [facility] June 02, 2024 6:36pm Note Date/Time June 02, 2024 6 :12pm [facility] [address] [place] [address] Hospitalist H&P Signed Patient: Patsy Cunningham MR#: [id number] : 1945 Acct:[id number] Age/Sex: 79 / M Adm Date: 4 Loc: Room: [address] [place] [address] Type: ADM IN Attending Dr: Mayda Matthews [...] except as mentioned elsewhere in the documentation [facility] Medical History Suprapubic catheter BPH (benign prostatic [...] cap (Gentle Iron) 1 cap PO QPM 03/11/24 [History Confirmed 06/02/24] multivitamin (Daily Multi-Vitamin tablet) [...] signed by Mayda Matthews MD> 06/02/24 1836 [facility] Work Phone: Hisjrbw general Narrative - Reported* Type Description Date [...] Hospitalization History ELEVATED CREATININE AND POTASSIUM 09/18/2021 [employer] Other Hisvgvj general Narrative - Reported* Type Description Date [...] Hospitalization History ELEVATED CREATININE AND POTASSIUM 09/18/2021 [employer] Other Hospital Discharge instructions No data available for this section [facility] data available for this section [facility] progress note Author Brook Huddleston [facility] September 03, 2022 9:25am Note Date/Time September 03, 2022 8 :57am [facility] [place] [address] Hem/Onc Follow Up Note - OP Signed Patient: Patsy Cunningham MR#: [id number] : 1945 Acct:[id number] Age/Sex: 77 / M Type: REG RCR [...] TURP with Dr. Cortez of urology at [facility] with some improvement of his urinary incontinence [...] month follow up; not much change management the past 1 month - of note, [...] if symptoms improve. One month followup with [facility] to review labs and symptoms. He also has followup with Dr. Hall in one week and will inform him of plan for one month off Revlimid. He also may seek Urology second opinion. 05/23/2022: Noted to have Urolift procedure at [facility] last month, noted increased post-op pain that [...] of kidney stone by Dr. Seals at [place] on 01/14/2022 without complications. Sent off Revlimid [...] protein electrophoresis or serum or urine immunofixation. [place]/lambda light chain ratio continues to decline to [...] He underwent a painful bone marrow by [facility] with Dr. Hall with nondiagnostic specimen. Dr. [...] 20 he was treated for UTI at [facility] ER, thenadmitted August 24 to [place] with dehydration and urosepsis with discharge August 29. 09/05/[address] Heath for continued antibiotics with Bactrim DS. Urine also returned positive for candidiasis and he was treated with fluconazole daily. He stopped his hydralazine and Lasix. --09/17/2021: He returned for labs and skeletal survey at [facility] and his potassium on blood work was markedly elevated. We contacted him and advised ER evaluation at [facility]. His potassium returned at 7.3 and he [...] due for follow-up with Dr. Hall at [facility] hematology in late October for 1 year [...] followup after D86 bone marrow biopsy at [facility] on 10/18/2020. No evidence of MRD--0.5% plasma cells andno clonal plasma cells suggestive of residual myeloma. Tolerating maintenance Revlimid 5mg daily well. No bone pain and normal renal function--Dr. Vincent hasreleased for annual nephrology followup. He is fully vaccinated for [id number] and I contacted Dr. Hall for coordination [...] completed all of his pretransplant evaluation at [facility] including cardiology visit 06 25 which showed ejection fraction 60%. I have contacted Dr. Hall who noted that today will be his last day of Velcade and we will hold his daratumumab. He was to have a COVID-19 teston 07/11/2020 for planned stem cell collection 07/17 and transplant on 07/23. I clarified with the staff at [facility] this this may be performed at [facility] and forwarded to them. His neuropathy in [...] has remarkably improved (>90% reduction past month). [place] light chains decreased from 12,000 to 42. [...] marijuana and would discuss this with his resident associate whetherthis would interfere with dialysis. We will also follow closely for cytopenias and reviewed infectious precautions. He has a son from [place] who plans to visit on Thursday and [...] but he may address this with our [facility] nutrition team. He will also receivechemotherapy class with our nurses in the infusion center. PRELIMINARY HISTORY (from initial consult 03/08/2020): This is a now 77-year-old male who was transferred from [place] emergency room by [facility] due to critical [...] day 0 autologous stem cell transplant 07/25/2020at [facility]. 11/26/2020: Follow-up bone marrow aspiration and biopsy 10/18/2020 for MRD evaluation shows hypocellular marrow with 0.5% plasma cells, no clonal population by flow cytometry but 0.03% kappa light chain skewing. Started Revlimid 5 mg daily for maintenance therapy early October 2020. Nondiagnostic bone marrow for MRD in spring 2021 at . Planned follow-up bone marrow biopsy for MRD at [facility] fall 2021. -- 02/05/2022: Revlimid on hold [...] TURP with Dr. Cortez of urology at [place] 08/27/2022. ROS Details: All systems reviewed & [...] followed by Dr. Seals--recent ESWL 01/14/2022 at [place]. ENDOCRINE: Negative for cold intolerance and heat [...] October 2021, repeat MRD bone marrow at [facility] April 2022, MRD aspirate sent 05/23/2022--Clonoseq returned [...] ASCT Day 0 07/25/2020. 11/26/2020: Followup of [facility] end of therapy bone marrow biopsy [...] be scheduled for MRD bone marrow at [facility] interventional radiology in April 2022, then follow-up with me with review of myeloma labs 3 months after this procedure. He still has undetectablemonoclonal spike and normal kappa/lambda light chain ratio on most recent labs. Renal function is improving since ESWL at [place] in late December. 05/23/2022: No new issues, [...] symptoms improved at one month followup with [facility], he will followup with me in one month with CBC, CMP, SPEP for monoclonal spike and kappa/lambda light chain ratio. 07/28/2022: Patsy is here for interval 1 month follow up; not much change management the past 1 month - of note, [...] for MRD. Repeat MRD bone marrow at [facility] in 3 months because spring 2021 bone [...] month follow up; not much change management the past 1 month - of note, [...] for coordination of care (as documented) and [id number]-[id number] counseling of patient and/or family. Dictated By: Brook Huddleston MD DD/ [id number] Signed By: <Electronically signed by MD Brook Huddleston> 09/03/22 0925 [facility] Work Phone: Progress note Author Delmar Wilburn [facility] January 22, 2024 6:09pm Note Date/Time January 22, 2024 6:10p m [facility] [address] [place], [place] [id number] Urology Progress Note Signed Patient: Patsy Cunningham MR#: [id number] : 1945 Acct:[id number] Age/Sex: 78 / M Adm Date: 4 Loc: 3T Room: [address] [place] [address] Type: ADM IN Attending Dr: Clarence Miller [...] % (Auto) 72.2, Lymph % (Auto) 17.0, [place] % (Auto) 7.2, Eos % (Auto) 3.3, Baso % (Auto) 0.3, Nucleat RBC Rel Count 0.1, Neut # (Auto) 5.8, Lymph # (Auto) 1.4, [place] # (Auto) 0.6, Eos # (Auto) 0.3, [...] % (Auto) 80.2, Lymph % (Auto) 10.3, [place] % (Auto) 6.6, Eos % (Auto) 2.7, Baso % (Auto) 0.2, Nucleat RBC Rel Count 0.1, Neut # (Auto) 6.4, Lymph # (Auto) 0.8 L, [place] # (Auto) 0.5, Eos # (Auto) 0.2, [...] <Electronically signed by Delmar Wilburn MD> 01/22/241808 [facility] Work Phone: Reason for referral (narrative)No reason for referral [facility] Work Phone: Summary Purpose Family History Relationship [...] Unknown History of stroke Unknown Advance Directives Advance Directive Response Recorded [...] 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 Hydronephrosis Hyperkalemia [id number] Hypophosphatemia Stage 3b chronic kidney disease (CKD) [...] 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 Hydronephrosis Hyperkalemia [id number] Hypophosphatemia Stage 3b chronic kidney disease (CKD) [...] 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 Hydronephrosis Hyperkalemia [id number] Hypophosphatemia Stage 3b chronic kidney disease (CKD) [...] Diabetes 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 Hyperkalemia [id number] Hypophosphatemia Stage 3b chronic kidney disease (CKD) 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 Chief Complaint RENAL 4 MONTH F/U Unknown Multiple Myloma Follow Up Reason for Visit Anemia of chronic re nal failure, stage 4 (severe) Diabetes 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 Hyperkalemia [id number] Hypophosphatemia Stage 3b chronic kidney disease (CKD) [...] Diabetes 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 Hyperkalemia [id number] Hypophosphatemia Stage 3b chronic kidney disease (CKD) [...] Unknown Multiple Myloma Follow Up sent by aury, potassium Reason for Visit Anemia of chronic re nal failure, stage 4 (severe) Diabetes 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 Hyperkalemia [id number] Hypophosphatemia Stage 3b chronic kidney disease (CKD) [...] Diabetes 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 Hyperkalemia [id number] Hypophosphatemia Light chain nephropathy due to multiple [...] 4, GFR 15-29 ml/min Hydronephrosis, left Hyperkalemia [id number] 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 Anemia of renal disease Chief Complaint Unknown Multiple Myloma Follow Up sent by aury, potassium sent by erna jeffers Chronic Kidney Disease Stage IV Reason for [...] 11:03am Rash and nonspecific skin eruption Novem pierre 2023 11:03am Steroid-induced diabetes mellitus Novemb er 2023 11:03am Superficial thrombophlebitis of left upp er extremity June 23, 2024 11:03am Urinary incontinence June 23, 2024 11:03am Acute renal failure on dialysis June 23, 2024 11:03am Anemia of renal disease June 23 11:03am Chief Complaint Admit Date Unknown June 01, 2024 3 :22pm Follow Up June 02, 2024 2 :06pm sent by aury, potassium June 02 5:52pm sent by aury, potassium June 03 9:34am Chronic Kidney Disease Stage IV June 08, 2024 10:33am e11.9 i12.9 e83.39 n18.32 n18.4 d63.1 No 2023 11:01am Multiple Myloma June 23, 2024 [...] 2024 11:03am Encounter for chemotherapy management No 2023 11:03am Encounter for coordination of complex [...] e11.9 e83.39 n18.4 d63.1 n28.89 c90.00 [facility] 2024 12:11pm Multiple Myloma September 27, 2024 [...] 2024 12:16pm History of hemodialysis September 27 12:16pm Iron deficiency anemia September 27 12:16pm [...] 12:16pm Anemia of renal disease September 27 12:16pm Chief Complaint Admit Date F/U Renal [...] September 27, 2024 12:16pm History of hemodialysis February 11th, 2 025 12:16pm Iron deficiency anemia September 27 [...] renal disease September 27 2 025 12:16pm Anemia of chronic renal failure, stage 4 (severe) October 04, 2024 3:21pm Diabetes 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 [facility] [place] 2024 3:21pm Hypophosphatemia October 04, 2024 3:21pm History of anemia due to vitamin B12 def iciency October 04, 2024 3:21pm 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 October 04, 2024 3:21pm Hyperkalemia October 04, 2024 3:21pm Stage 3b chronic kidney disease (CKD) [facility] 2024 3:21pm Chief Complaint Admit Date F/U Renal August 03, 2024 3:32pm e11.9 e83.39 n18.4 d63.1 n28.89 c90.00 F [facility] 2024 12:11pm renal 3 month f/u October [...] Stage 3b chronic kidney disease (CKD) [facility] 3:32pm Anemia of chronic renal failure, [...] Stage 3b chronic kidney disease (CKD) [facility] [place] 2024 3:21pm Anemia of chronic renal failure, [...] 2024 1:24pm Encounter for chemotherapy management [facility] 2024 1:24pm Encounter for coordination of complex [...] e11.9 e83.39 n18.4 d63.1 n28.89 c90.00 [facility] 2024 12:11pm renal 3 month [...] Diabetes 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 Feb ary 2024 3:21pm Hypophosphatemia October 04, 2024 3:21pm History of anemia due to vitamin B12 def iciency October 04, 2024 3:21pm 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 October 04, 2024 3:21pm Hyperkalemia October 04, 2024 3:21pm Stage 3b chronic kidney disease (CKD) [facility] 2024 3:21pm Anemia of chronic renal failure, [...] 2024 1:24pm Encounter for chemotherapy management [facility] 2024 1:24pm Encounter for coordination of complex [...] Stage 3b chronic kidney disease (CKD) [facility] [place] 2024 3:21pm Anemia of chronic renal failure, [...] 11, 2024 11:25am Encounter for chemotherapy management [facility] 2024 11:25am Encounter for coordination of complex [...] 3:21pm Diabetes 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 [facility] [place] 2024 3:21pm Hypophosphatemia October 04, 2024 3:21pm History of anemia due to vitamin B12 def iciency October 04, 2024 3:21pm 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 October 04, 2024 3:21pm Hyperkalemia October 04, 2024 3:21pm Stage 3b chronic kidney disease (CKD) [facility] [place] 2024 3:21pm Anemia of chronic renal failure, [...] 2025 1:24pm Encounter for chemotherapy management [place] 2024 1:24pm Encounter for coordination of complex [...] section and content) DATE CREATED AUTHOR 09/07/2020 [employer] DATE CREATED AUTHOR AUTHOR'S ORGANIZ ATION 11/06/2022 [facility] DATE CREATED AUTHOR AUTHOR'S ORGANIZ ATION 12/15/2022 [facility] DATE CREATED AUTHOR AUTHOR'S ORGANIZ ATION 01/11/2024 [facility] DATE CREATED AUTHOR AUTHOR'S ORGANIZ ATION 01/19/2024 [facility] DATE CREATED AUTHOR AUTHOR'S ORGANIZ ATION 01/21/2024 [facility] DATE CREATED AUTHOR AUTHOR'S ORGANIZ ATION 02/10/2024 [facility] DATE CREATED AUTHOR AUTHOR'S ORGANIZ ATION 03/21/2024 [facility] DATE CREATED AUTHOR AUTHOR'S ORGANIZ ATION 04/20/2024 [facility] DATE CREATED AUTHOR AUTHOR'S ORGANIZ ATION 04/23/2024 [facility] DATE CREATED AUTHOR AUTHOR'S ORGANIZ ATION 06/04/2024 [facility] DATE CREATED AUTHOR AUTHOR'S ORGANIZ ATION 08/26/2024 [facility] DATE CREATED AUTHOR AUTHOR'S ORGANIZ ATION 08/30/2024 [facility] DATE CREATED AUTHOR AUTHOR'S ORGANIZ ATION 09/10/2024 [facility] DATE CREATED AUTHOR AUTHOR'S ORGANIZ ATION 09/13/2024 [facility] DATE CREATED AUTHOR AUTHOR'S ORGANIZ ATION 11/12/2024 [facility] DATE CREATED AUTHOR AUTHOR'S ORGANIZ ATION 11/19/2024 [facility] DATE CREATED AUTHOR AUTHOR'S ORGANIZ ATION 12/02/2024 [facility] DATE CREATED AUTHOR AUTHOR'S ORGANIZ ATION 12/25/2024 [facility] DATE CREATED AUTHOR AUTHOR'S ORGANIZ ATION 01/15/2025 [facility] DATE CREATED AUTHOR AUTHOR'S ORGANIZ ATION 02/03/2025 [facility] DATE CREATED AUTHOR AUTHOR'S ORGANIZ ATION 02/23/2025 [facility] DATE CREATED AUTHOR AUTHOR'S ORGANIZ ATION 02/24/2025 [facility] DATE CREATED AUTHOR AUTHOR'S ORGANIZ ATION 03/01/2025 [facility] DATE CREATED AUTHOR AUTHOR'S ORGANIZ ATION 03/08/2025 [facility] DATE CREATED AUTHOR AUTHOR'S ORGANIZ ATION 03/10/2025 [facility] DATE CREATED AUTHOR AUTHOR'S ORGANIZ ATION 03/11/2025 [facility] DATE CREATED AUTHOR AUTHOR'S ORGANIZ ATION 03/19/2025 [facility] DATE CREATED AUTHOR AUTHOR'S ORGANIZ ATION 03/22/2025 [facility] DATE CREATED AUTHOR AUTHOR'S ORGANIZ ATION 04/19/2025 [facility] DATE CREATED AUTHOR AUTHOR'S ORGANIZ ATION 04/20/2025 [facility] DATE CREATED AUTHOR AUTHOR'S ORGANIZ ATION 04/25/2025 [facility] Care Team (unrecognized sect ion and content) Personnel Name: HELEN HEATH MD Address: [address] [place] [address] Telecom: Team Status: Active Member Role Status Dates [...] Price Crain MD Other Provider Active Start: J 2023 End: January 22, 2024 Delmar Wilburn [...] Sue Heath MD Primary Care Provider Active Brook Huddleston MD Attending Provider Active Team Status: Inactive Member Role Status Sue Heath MD Attending Provider Active PHYSICIAN NO FAMILY Primary Care Provider Active Team Status: Active Member Role Status Dates PHYSICIAN NO FAMILY Primary Care Provider Active Team Status: Inactive Member Role Status Sue Heath MD Primary Care Provider Active Price Crain MD Attending Provider Active Team Status: Inactive Member Role Status Sue Heath MD Primary Care Provider Active Brook Huddleston MD Attending Provider Active Team Status: Inactive Member Role Status Sue Heath MD Primary Care Provider Active Orquidea Cortez MD Attending Provider Active Price Crain MD Referring Provider Active Team Status: Inactive Member Role Status Sue Heath MD Primary Care Provider Active Orquidea Cortez MD Attending Provider Active Team Status: Inactive Member Role Status Sue Heath MD Primary Care Provider, Attending Laurie masterson Active Team Status: Inactive Member Role Status Sue Heath MD Primary Care Provider, Other Provi janet Active Orquidea Cortez MD Attending Provider Active Lacing Presser Relationship Specialty Start Date End Date Helen Heath MD [address] [place] [address] PCP - [facility] 02/11/23 Lacing Presser Relationship Specialty Start Date End Date Helen Heath MD [facility] [place] [address] PCP - [facility] 02/11/23 Team Status: Inactive Member Role Status Seu Heath MD Primary Care Provider Active Start: [...] Team Status: Inactive Member Role Status Sue Heaht MD Primary Care Provider Active Start: March [...] Cortez MD Other Provider Active Start: Oc tober 2023 Team Status: Inactive Member Role Status [...] Rahman MD Other Provider Active Start: Oc tober 2023 End: June 05, 2024 Orquidea Cortez MD Other Provider Active Start: Oc tober 2023 End: June 05, 2024 Team Status: [...] Cortez MD Other Provider Active Start: Oc tober 2023 Team Status: Inactive Member Role Status [...] 2025 Team Status: Inactive Member Role Status Dates [...] Attending Provider Active Start: February 08, 2025 Lacing Presser Relationship Specialty Start Date End Date Helen Heath MD [address] [place] [phone] PCP - General Family Medicine 02/11/23 Lacing Presser Relationship Specialty Start Date End Date Helen Heath MD [address] [place] [phone] PCP - General Family Medicine 02/11/23 Lacing Presser Relationship Specialty Start Date End Date Helen Heath MD [address] [place] [phone] PCP - General Family Medicine 02/11/23 Lacing Presser Relationship Specialty Start Date End Date Helen Heath MD [address] [place] [phone] PCP - [facility] 02/11/23 Team Status: Inactive Member Role Status Dates Helen Heath MD Primary Care Provider Active Start: April 05, 2025 End: April 05, 2025 Carito Martell PA-C Attending Provider Active Start: April 05, 2025 End: April 05, 2025 Orquidea Cortez MD Other Provider Active Start: 2024 End: April 05, 2025 Team Status: Active Member Role Status Dates Helen Heath MD Primary Care Provider Active Start: April 05, 2025 Brook Huddleston MD Attending Provider Active Start: April 05, 2025 Lacing Presser Relationship Specialty Start Date End Date Helen Heath MD [facility] [place] [phone] PCP - [facility] 02/11/23 Lacing Presser Relationship Specialty Start Date End Date Helen Heath MD [facility] [place] [phone] PCP - [facility] 02/11/23 REASON FOR VISIT (unrecogniz ed section [...] or prosecute any alcohol or drug abuse patient.[facility] HospitalIn the event this information is protected by the Federal Confidentiality of Alcohol and Drug Abuse Patient Records regulations: The Federal rules restrict any use of the information to criminally investigate or prosecute any alcohol or drug abuse patient.[facility] HospitalIn the event this information is protected by the Federal Confidentiality of Alcohol and Drug Abuse Patient Records regulations: The Federal rules restrict any use of the information to criminally investigate or prosecute any alcohol or drug abuse patient.[facility] HospitalIn the event this information is protected by the Federal Confidentiality of Alcohol and Drug Abuse Patient Records regulations: The Federal rules restrict any use of the information to criminally investigate or prosecute any alcohol or drug abuse patient.[facility] HospitalIn the event this information is protected by the Federal Confidentiality of Alcohol and Drug Abuse Patient Records regulations: The Federal rules restrict any use of the information to criminally investigate or prosecute any alcohol or drug abuse patient.[facility] HospitalIn the event this information is protected by the Federal Confidentiality of Alcohol and Drug Abuse Patient Records regulations: The Federal rules restrict any use of the information to criminally investigate or prosecute any alcohol or drug abuse patient.[facility] HospitalIn the event this information is protected by the Federal Confidentiality of Alcohol and Drug Abuse Patient Records regulations: The Federal rules restrict any use of the information to criminally investigate or prosecute any alcohol or drug abuse patient.[facility] HospitalIn the event this information is protected by the Federal Confidentiality of Alcohol and Drug Abuse Patient Records regulations: The Federal rules restrict any use of the information to criminally investigate or prosecute any alcohol or drug abuse patient.[facility] HospitalIn the event this information is protected by the Federal Confidentiality of Alcohol and Drug Abuse Patient Records regulations: The Federal rules restrict any use of the information to criminally investigate or prosecute any alcohol or drug abuse patient.[facility] HospitalIn the event this information is protected by the Federal Confidentiality of Alcohol and Drug Abuse Patient Records regulations: The Federal rules restrict any use of the information to criminally investigate or prosecute any alcohol or drug abuse patient.[facility] HospitalIn the event this information is protected by the Federal Confidentiality of Alcohol and Drug Abuse Patient Records regulations: The Federal rules restrict any use of the information to criminally investigate or prosecute any alcohol or drug abuse patient.[facility] HospitalIn the event this information is protected by the Federal Confidentiality of Alcohol and Drug Abuse Patient Records regulations: The Federal rules restrict any use of the information to criminally investigate or prosecute any alcohol or drug abuse patient.[facility] HospitalIn the event this information is protected by the Federal Confidentiality of Alcohol and Drug Abuse Patient Records regulations: The Federal rules restrict any use of the information to criminally investigate or prosecute any alcohol or drug abuse patient.[facility] FOR RECORDS PERTAINING TO PATIENTS WHO [...] BE BASED ON THE PRIMARY CLINICAL RECORDS. [facility]. provides no warranty or guarantee of the accuracy or completeness of information in this document.
[2025-04-27 15:06] LABS: Albumin Level 3.3 g/dL (3.4-5.0); Anion Gap 14.3; Blood Urea Nitrogen 30.0 mg/dL (7.0-18.0); Calcium 9.3 mg/dL (8.5-10.1); Carbon Dioxide 24.5 mmol/L (21.0-32.0); Chloride 102 mmol/L (98-107); Estimated GFR (African America 29 (>=60 mL/min/1.73m^2); Estimated GFR (Non-African Ame 24 (>=60 mL/min/1.73m^2); Glucose 276 mg/dL (74-106); Magnesium 2.1 mg/dL (1.8-2.4); Potassium 4.8 mmol/L (3.5-5.1); Sodium 136 mmol/L (136-145); Uric Acid 5.1 mg/dL (3.5-7.2)
[2025-04-27 15:08] LABS: Protein Creatinine Ratio Urine 3.02; Total Protein Urine Random 233.8 mg/dL (<=11.9)
[2025-04-27 15:23] LABS: Hematocrit 33.1 % (42.0-54.0); Hemoglobin 10.8 g/dL (14.0-18.0); Mean Corpuscular HGB Conc 32.6 g/dL (29.9-35.2); Mean Corpuscular Hemoglobin 34.4 pg (25.9-34.0); Mean Corpuscular Volume 105.4 fL (80.0-94.0); Platelet Count 223 10^3/uL (150-450); Red Blood Count 3.14 10^6/uL (4.70-6.10); White Blood Count 9.2 10^3/uL (4.0-11.0)
== END 2025-04-27 14:07 | disposition home or self-care (01) ==
LOC: LAB 14:07
PROVIDERS: PCP Family Medicine; Visit Provider Internal Medicine Nephrology
DX: E83.39 Other disorders of phosphorus metabolism (principal); E11.9 Type 2 diabetes mellitus without complications; Z86.2 Personal history of diseases of the blood and blood-forming organs and certain disorders involving the immune mechanism; N18.4 Chronic kidney disease, stage 4 (severe); D63.1 Anemia in chronic kidney disease; N28.89 Other specified disorders of kidney and ureter
CPT/HCPCS: 36415; 80069; 82306; 82570; 83735; 83970; 84156; 84550; 85027

== ENCOUNTER 2025-08-14 07:36 | Outpatient (OUT) | payer MEDICARE, SELFPAY ==
--- OUTSIDE RECORDS SUMMARY | 2025-08-03 09:35 | XMS_ITS | Encounter Summary ---
Author Organization [facility] Address [address] [place] [id number] Care Team Providers Care Outpatient Coder Name Role Phone Shukri Heath MD Primary Care Provider + Source Comments In the event this information is protected by the Federal Confidentiality of Alcohol and Drug AbusePatient Records regulations: The Federal rules restrict any use of the information to criminally investigate or prosecute any alcohol or drug abuse patient.[facility] Encounter Details DateTypeDepartmentCare Team (Latest Contact Info)Wtmyqdcivux34/18/2025 9:35 AM EST - 08/03/2025 12:27 PM ESTHospital Encounter [facility] Radiology Procedure [address] [place] [address] [place] [address] [place] [address] [address] [place] [id number] 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 Last address used for t[address] [facility] [address]01/07/2023Sex and Gender InformationValueDate RecordedSex Assigned at BirthNot on fileLegal QdkJjvj7612/19/2022 11:18 AM EDT Gender IdentityNot on fileSexual OrientationNot on filedocumented as of this encounter Last Filed Vital Signs Vital SignReadingTime TakenCommentsBlood Isogvgmu037/6508/03/2025 12:15 PM EST Glcto395908/03/2025 12:15 PM KOCWfuvdhjbzsw11.4 ??C (97.6 ??F)08/03/2025 11:35 AM ESTRespiratory Nfuv232810/04/2024 11:45 AM ESTOxygen Onyavwejfq90%08/03/2025 12:15 PM ESTInhaled Oxygen Concentration--Weight--Height--Body Mass Index--documented in this encounter Medications at Time of Discharge MedicationSigDispense QuantityRefillsLast FilledStart DateEnd Date aspirin 81 mg chewable tablet mg tab(s), Chewed, Daily, Refills(s) atorvastatin (LIPITOR) 20 mg tablet Take by mouth.10/15/2020 famotidine (PEPCID) 20 mg tablet Take 20 mg by mouth.08/15/2020 metFORMIN ER (GLUCOPHAGE XR) 500 mg 24 hr tablet 12/23/2022 oxybutynin ER (DITROPAN XL) 10 mg 24 hr tablet 12/29/2022 MEN'S MULTI-VITAMIN ORAL Multi Vitamin Mens Active Cholecalciferol, Vitamin D3, (D3-2000) 50 mcg (2,000 unit) cap Take by mouth.11/13/2020 Lactobacillus acidophilus (PROBIOTIC) 10 billion cell cap probiotic as directed Active lisinopril (ZESTRIL) 10 mg tablet Take by mouth q 24 HR.01/14/2023 LANTUS SOLOSTAR U-100 INSULIN 100 unit/mL (3 mL) 01/15/2023 insulin lispro (HUMALOG KWIKPEN) 100 unit/mL pen Inject 8 Units subcutaneously three times daily before meals. Plus sliding scale. docusate sodium (STOOL SOFTENER) 100 mg capsule Take 100 mg by mouth twice daily as needed for constipation. phosphorus (PHOSPHOROUS) 250 mg tablet Take 1 tablet by mouth three times daily.documented as of this encounter H&P Notes * Lisa Alcaraz MD - 08/03/2025 10:51 AM EST HISTORY AND PHYSICAL EXAMINATION SERVICE DATE: August 03, 2025 SERVICE TIME: 10:51 AM HPI: 80 M with hydronephrosis 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 He had chronic bilateral stents to but is now managed with bilateralnephrostomy tubes. Patient is here for routine exchange with no issues since last change. ASA Class: ASA 2- Mild systemic disease Allergies: Mirabegron Diarrhea, GI Upset Gabapentin Rash Tape [Adhesive Tape* Rash Comment:Including allevyn dressings PAST MEDICAL HISTORY Diagnosis Date Anemia BPH (benign prostatic hyperplasia) Diabetes (HCC) Hypertension Kidney stones Multiple myeloma (HCC) OAB (overactive bladder) Prostate CA (HCC) Rheumatoid arthritis (HCC) PAST SURGICAL HISTORY Procedure Laterality Date BONE MARROW TRANSPLANT, ALLOGENEIC CYSTOSCOPY 11/2022 ESWL 2008 TRANSURETHRAL ELEC-SURG PROSTATECTOM 08/2022 UROLIFT PROSTATE PROCEDURE 04/2022 UVULECTOMY EXCISION OF UVULA AIRWAY: 2: Upper half of tonsil fossa visible LUNGS: Lungs clear to auscultation, Good diaphragmatic excursion CARDIAC: Regular rate and rhythm Sedation Goal: Moderate sedation Provisional Diagnosis/Treatment Plan: Bladder dysfunction/hydronephrosis. Okay to proceed with moderate sedation. SIGNATURE: Lisa Alcaraz MD PATIENT NAME: Jacky Mills DATE: August 03, 2025 TIME: 10:51 AM documented in this encounter Nursing Notes * Linda Ventura RN - 08/03/2025 12:27 PM EST Completed post procedure phone call. Jacky is feeling well and has returned to his baseline diet and activity. Patient had questions regarding flushing bag, and questions answered. * Yaa Gutierrez RN - 08/03/2025 9:48 AM EST PATIENT EDUCATION TOPIC: PROCEDURE / SURGERY: Procedure/Surgery: nephrostomy tube change PATIENT NAME: Jacky Mills PATIENT LOCATION: AV Rad Proc/AV Rad Proc [...] pre-procedure instructions METHOD OF INSTRUCTION: Individual instruction Verbal instruction FOLLOW-UP PLAN: Patient instructed to call with any further issues Follow-up with Primary Care INSTRUCTIONAL AIDS USED: pt decliines preprinted discharge instruction sheets SUPPLEMENTAL MATERIAL PROVIDED TO PATIENT: None REFERRAL (RECOMMENDATION): None documented in this encounter Plan of Treatment DateTypeDepartmentCare Team (Latest Contact Info)Lewskqfvxdz00/12/2026 11:30 AM ESTHospital Encounter [facility] Radiology Procedure [address] [place] [address] Ureteral 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.5]09/28/2025 11:30 AM EST - 09/28/2025 1:00 PM EST Surgery [facility] Radiology Procedure [address] [place] [address] CONSULTING SERVICES MANAGER [address] [place] [address] PERC EXCHANGE NEPHROSTOMY CATH, INCLUDING DIAGNOSTIC NEPHROSTOGRAM/URETEROGRAM WHEN PERFORMED,IMAGING GUIDANCE AND ALL ASSOCIATED RAD S&INamePriorityAssociated DiagnosesDate/TimePERC EXCHANGE NEPHROSTOMY CATH, INCLUDING DIAGNOSTIC NEPHROSTOGRAM/URETEROGRAM WHEN PERFORMED,IMAGING GUIDANCE AND ALL ASSOCIATED RAD S&I Ureteral stricture 09/28/2025 11:30 AM ESTdocumented as of this encounter Procedures Procedure NamePriorityDate/TimeAssociated DiagnosisCommentsIR NEPH TUBE CHANGE BILAT (AV,UN)08/03/2025 11:28 AM EST EXCHANGE NEPHROSTOMY CATHETER PRQ W/IMG GID RS&I110/04/2024 10:26 AM EST Ureteral stricture GLUCOSE, BLOOD (POC)Geagzqk3408/03/2025 9:59 AM EST documented in this encounter Results * IR NEPH TUBE CHANGE BILAT (AV,UN) (08/03/2025 11:28 AM EST)Anatomical Region LateralityModalityOtherSpecimen (Source)Anatomical Location / Laterality Collection Method / VolumeCollection TimeReceived Time08/03/2025 11:28 AM EST Impressions 08/03/2025 12:37 PM EST IMPRESSION: UNEVENTFUL EXCHANGE OF A RIGHT 10 GUATEMALAN NEPHROSTOMY CATHETER AND A LEFT 10.2 GUATEMALAN NEPHROSTOMY CATHETER. PLAN: Catheter may be allowed to drain passively into bag until next catheter exchange. Patient may return in 12 weeks for routine exchange. Attestation Signer name: Lisa Alcaraz MD I attest that I was present for the entire procedure. I reviewed the stored images and agree with the report as written. Trim Carpenter: HARRY ?? Transcribe Date/Time: Aug 03 2025 12:32P Dictated by : LISA ALCARAZ MD This examination was interpreted and the report reviewed and electronically signed by: LISA ALCARAZ MD on Aug 03 2025 12:35PM ??EST Narrative 08/03/2025 12:37 PM EST * * *Final Report* * * DATE OF EXAM: Aug 03 2025 11:28AM ?? VHA ?? [id number] ??- ??IR EXCHANGE NEPH TUBE BILAT ??/ PROCEDURE REASON: Ureteral 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.5] ? 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 He had chronic bilateral stents to but is now managed with bilateral nephrostomy tubes. Patient is here for routine exchange with no issues since last change. PROCEDURE SUMMARY - Target organ: Bilateral [place] kidneys - Antegrade nephrostogram(s) via the existing [...] record and reconciled to the proposed procedure/treatment. Lidnsay-procedure discussion: The appropriate elements of the pre-procedure [...] and procedure-specific equipment needs. Start of procedure: 1117 End of procedure: 1123 Patient position: ??Prone Preparation: The site was prepared and draped using all elements of maximal sterile barrier technique including sterile gloves, sterile gown, cap, mask, large sterile sheet, hand hygiene and cutaneous antisepsis. Antibiotics: None Antibiotic infusion start time: N/A Prophylactic antibiotic administered: None Additional med: ??None Additional med: ??None Contrast Contrast agent: OMNIPAQUE 240 Contrast volume (mL): 10 Image Guidance: ??Fluoroscopic guidance. RADIATION DOSE: FLUOROSCOPIC RADIATION SUMMARY: Plane A, Air Kerma: ??5.5 mGy Dose Area Product (DAP): ?? 566.1 mGy*cm2 Fluoro Time: ??1:18 min:sec Radiation dose exceed 3.5 Gy: No If radiation dose exceeded 3.5 Gy, was counseling and instructional brochure provided: ??N/A Anesthesia/sedation Level of anesthesia/sedation: No sedation Anesthesia/sedation administered by: Not applicable Total intra-service sedation time (minutes): 0 Local anesthesia: 2 % lidocaine Right genitourinary catheter exchange Local anesthesia was administered. Initial nephrostogram was performed. A wire was placed through the existing tube and it was removed. The new tube was advanced over the wire and position was confirmed with contrast injection. Pre-existing genitourinary catheter: 10 F [employer] nephrostomy Genitourinary catheter(s) placed: 10 F [employer] nephrostomy Findings: Appropriate positioning of the distal pigtail within the renal pelvis External catheter securement: Non-absorbable suture Left genitourinary catheter exchange Local anesthesia was administered. Initial nephrostogram was performed. A wire was placed through the existing tube and it was removed. The new tube was advanced over the wire and position was confirmed with contrast injection. Pre-existing genitourinary catheter: 8 F [employer] nephrostomy Genitourinary catheter(s) placed: 10.2 F [employer]manjinder [address] Findings: Appropriate positioning of the distal pigtail within the renal pelvis External catheter securement: Non-absorbable suture Additional genitourinary system intervention Genitourinary intervention: None Location of intervention: Not applicable Device used: Not applicable Description of intervention: Not applicable Post-intervention findings: Not applicable Additional Details Additional description of procedure: None Equipment details: None Estimated blood loss (mL): Less than 10 Number and Type of Removed Specimens: ??0: ??N/A Standardized report: [email or web address] Complications There were no immediate complications and no other complications. Conclusion The patient was comfortable and was transferred to the recovery room in stable condition. The procedure was performed by the: attending radiologist, without an library assistant. The attending radiologist performed the following procedural activities: Total procedure Procedure Note Provider, [facility] - 08/03/2025 * * *Final Report* * * DATE OF EXAM: Aug 03 2025 11:28AM A 7354 - IR EXCHANGE NEPH TUBE BILAT / PROCEDURE REASON: Ureteral 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.5] * * * * Physician Interpretation * * * * PROCEDURE: GENITOURINARY CATHETER EXCHANGE Procedural Personnel Attending physician(s): Lisa Alcaraz MD Fellow physician(s): None Resident physician(s): None Advanced practice provider(s): None Medical Student(s): None Pre-procedure diagnosis: Hydronephrosis Post-procedure diagnosis: Same Indication: Routine scheduled exchange Additional clinical history: 80 M with hydronephrosis 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 He had chronic bilateral stents to but is now managed with bilateral nephrostomy tubes. Patient is here for routine exchange with no issues since last change. PROCEDURE SUMMARY - Target organ: Bilateral [place] kidneys - Antegrade nephrostogram(s) via the existing [...] and procedure-specific equipment needs. Start of procedure: 1117 End of procedure: 1123 Patient position: Prone Preparation: The site was prepared and draped using all elements of maximal sterile barrier technique including sterile gloves, sterile gown, cap, mask, large sterile sheet, hand hygiene and cutaneous antisepsis. Antibiotics: None Antibiotic infusion start time: N/A Prophylactic antibiotic administered: None Additional med: None Additional med: None Contrast Contrast agent: OMNIPAQUE 240 Contrast volume (mL): 10 Image Guidance: Fluoroscopic guidance. RADIATION DOSE: FLUOROSCOPIC RADIATION SUMMARY: Plane A, Air Kerma: 5.5 mGy Dose Area Product (DAP): 566.1 mGy*cm2 Fluoro Time: 1:18 min:sec Radiation dose exceed 3.5 Gy: No If radiation dose exceeded 3.5 Gy, was counseling and instructional brochure provided: N/A Anesthesia/sedation Level of anesthesia/sedation: No sedation Anesthesia/sedation administered by: Not applicable Total intra-service sedation time (minutes): 0 Local anesthesia: 2 % lidocaine Right genitourinary catheter exchange Local anesthesia was administered. Initial nephrostogram was performed. A wire was placed through the existing tube and it was removed. The new tube was advanced over the wire and position was confirmed with contrast injection. Pre-existing genitourinary catheter: 10 F [employer] nephrostomy Genitourinary catheter(s) placed: 10 F [employer] nephrostomy Findings: Appropriate positioning of the distal pigtail within the renal pelvis External catheter securement: Non-absorbable suture Left genitourinary catheter exchange Local anesthesia was administered. Initial nephrostogram was performed. A wire was placed through the existing tube and it was removed. The new tube was advanced over the wire and position was confirmed with contrast injection. Pre-existing genitourinary catheter: 8 F [employer] nephrostomy Genitourinary catheter(s) placed: 10.2 F [employer] [address] Findings: Appropriate positioning of the distal pigtail within the renal pelvis External catheter securement: [...] Conclusion The patient was comfortable and was transferred to the recovery room in stable condition. The procedure was performed by the: attending radiologist, without an library assistant. The attending radiologist performed the following procedural activities: Total procedure IMPRESSION IMPRESSION: UNEVENTFUL EXCHANGE OF A RIGHT 10 GUATEMALAN NEPHROSTOMY CATHETER AND A LEFT 10.2 GUATEMALAN NEPHROSTOMY CATHETER. PLAN: Catheter may be allowed to drain passively into bag until next catheter exchange. Patient may return in 12 weeks for routine exchange. Attestation Signer name: Lisa Alcaraz MD I attest that I was present for the entire procedure. I reviewed the stored images and agree with the report as written. Trim Carpenter: PSCB Transcribe Date/Time: Aug 03 2025 12:32P Dictated by : LISA ALCARAZ MD This examination was interpreted and the report reviewed and electronically signed by: LISA ALCARAZ MD on Aug 03 2025 12:35PM EST Authorizing ProviderResult TypeResult Teja Alcaraz MDVASCULAR IMAGING REGIONALFinal Result * (ABNORMAL) GLUCOSE, BLOOD (POC) (08/03/2025 9:59 AM EST)ComponentValueRef RangeTest MethodAnalysis TimePerformed AtPathologist SignatureGlucose, Point of Ylde261(A)74 - 99 mg/dLRiverton HospitalComment: Location:[facility], [address] [place] [address], [facility] The Accu-Chek Inform II glucose meter has not been approved for testing on patients receiving intensive medical intervention or therapy and results from this point of care glucose test should not be used for patient management decisions in these cases. ??Inaccurate results may also occur from other interfering factors, such as N-acetylcysteine (blood concentrations of greater than 5mg/dL), galactose, extremes of hematocrit (<10 or >65), or high doses of ascorbic acid (vitamin C) greater than 3mg/dL. ??Consider alternate testing mechanisms (e.g. core lab, blood gas instrument) in the above situations. Specimen (Source)Anatomical Location / LateralityCollection Method / Volume Collection TimeReceived Time08/03/2025 9:59 AM EST Narrative Authorizing ProviderResult TypeResult Teja Alcaraz [facility] TESTINGFinal ResultPerforming OrganizationAddressCity/State/ZIP CodePhone Number [facility] POINT OF CARE [facility] [address] [place], [place] documented in this encounter Visit Diagnoses Not on filedocumented in this encounter Care Teams Team MemberRelationshipSpecialtyStart DateEnd Date Shukri Heath MD [address] [place] [address] PCP - GeneralFamily Medicine02/11/23documented as of this encounter
--- OUTSIDE RECORDS SUMMARY | 2025-08-03 10:30 | XMS_ITS | Encounter Summary ---
Author Organization [facility] Address [address] [place] [address] Care Team Providers Care Filler Mixer Name Role Phone Shukri Heath MD Primary Care Provider + Source Comments In the event this information is protected by the Federal Confidentiality of Alcohol and Drug AbusePatient Records regulations: The Federal rules restrict any use of the information to criminally investigate or prosecute any alcohol or drug abuse patient.[facility] Encounter Details DateTypeDepartmentCare Team (Latest Contact Info)Ikdchwbznem18/18/2025 10:30 AM EST - 08/03/2025 11:30 AM [facility] Radiology Procedure [address] [place] [address] [place] [address] [place] [address] [facility] EXCHANGE NEPHROSTOMY CATH, INCLUDING DIAGNOSTIC NEPHROSTOGRAM/URETEROGRAM WHEN PERFORMED,IMAGING GUIDANCE AND ALL ASSOCIATED RAD S&I Surgery Details Date/TimeStatusLocationORServicePatient ClassCase ClassCase TypeTrauma Case? 08/03/2025 10:30 AMPostedAV IRAV IRRadiologyAmbulatory SurgeryElectivePanel 1 ProcedureLRBAnesOp RegionWound ClassCommentsPERC EXCHANGE NEPHROSTOMY CATH, INCLUDING DIAGNOSTIC NEPHROSTOGRAM/URETEROGRAM WHEN PERFORMED,IMAGING GUIDANCE AND ALL ASSOCIATED RAD S&IPendingLocal SurgeonSurgeon RoleServicePanelMiclisbeth, Lisa, BKFmaiwgnUexhqtcww6gzvcexnpxs in this encounter Social History Tobacco UseTypesPacks/DayYears UsedDateSmoking Tobacco: MsnswvXiplpbfowu9Txef: 1980Smokeless Tobacco: NeverAlcohol UseStandard Drinks/WeekCommentsYes0 (1 standard drink = 0.6 oz pure alcohol)none since 1990 [facility] Deprivation Index AnswerDate RecordedNational Score (1-100), lower number is lower risk63 01/07/2023State Score (1-10), lower number is lower ytqw305ata from: https://www.neighborhoodatlas.[facility]/. Last address used for [address] [address]33401/07/2023Sex and Gender InformationValueDate RecordedSex Assigned at BirthNot on fileLegal HklKqbu4412/19/2022 11:18 AM EDT Gender IdentityNot on fileSexual OrientationNot on filedocumented as of this encounter Last Filed Vital Signs Vital SignReadingTime TakenCommentsBlood Dsmwscws528/7908/03/2025 11:25 AM EST Taesx983808/03/2025 11:25 AM QIDLjjfegeyvwd17.2 ??C (97.1 ??F)08/03/2025 9:55 AM ESTRespiratory Ycyr895808/03/2025 11:25 AM ESTOxygen Vawucpbrsx80%08/03/2025 11:25 AM ESTInhaled Oxygen Concentration--Weight--Height--Body Mass Index--documented in this [...] Plan of Treatment DateTypeDepartmentCare Team (Latest Contact Info)Gcljwbgjpmh53/12/2026 11:30 AM ESTHospital Encounter [facility] Radiology Procedure [address] [place] [address] Ureteral 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.5]09/28/2025 11:30 AM EST - 09/28/2025 1:00 PM EST Surgery [facility] Radiology Procedure [address] [place] [address] 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 MACHINE OPERATOR [address] [place] [address] PERC EXCHANGE NEPHROSTOMY CATH, INCLUDING DIAGNOSTIC NEPHROSTOGRAM/URETEROGRAM [...] 10:26 AM EST Ureteral stricture GLUCOSE, BLOOD (POC)Yvblfcj6108/03/2025 9:59 AM EST documented in this encounter Results * IR NEPH TUBE CHANGE BILAT (AV,UN) (08/03/2025 11:28 AM EST)Anatomical Region LateralityModalityOtherSpecimen (Source)Anatomical Location / Laterality Collection Method / VolumeCollection TimeReceived Time08/03/2025 11:28 AM EST Impressions 08/03/2025 12:37 PM EST IMPRESSION: UNEVENTFUL EXCHANGE OF A RIGHT 10 SENEGALESE NEPHROSTOMY CATHETER AND A LEFT 10.2 SENEGALESE NEPHROSTOMY CATHETER. PLAN: Catheter may be allowed to drain passively into bag until next catheter exchange. Patient may return in 12 weeks for routine exchange. Attestation Signer name: Lisa Alcaraz MD I attest that I was present for the entire procedure. I reviewed the stored images and agree with the report as written. Shaping Machine Operator: HARRY ?? Transcribe Date/Time: Aug 03 2025 [...] change. PROCEDURE SUMMARY - Target organ: Bilateral capitan grande kidneys - Antegrade nephrostogram(s) via the existing [...] contrast injection. Pre-existing genitourinary catheter: 10 F [employer] nephrostomy Genitourinary catheter(s) placed: 10 F [employer] nephrostomy Findings: Appropriate positioning of the distal pigtail within the renal pelvis External catheter securement: Non-absorbable suture Left genitourinary catheter exchange Local anesthesia was administered. Initial nephrostogram was performed. A wire was placed through the existing tube and it was removed. The new tube was advanced over the wire and position was confirmed with contrast injection. Pre-existing genitourinary catheter: 8 F [employer] nephrostomy Genitourinary catheter(s) placed: 10.2 F Wilmer French Findings: Appropriate positioning of the distal [...] performed by the: attending radiologist, without an sound assistant. The attending radiologist performed the following procedural activities: Total procedure Procedure Note Provider, [facility] [employer] - 08/03/2025 * * *Final Report* * [...] change. PROCEDURE SUMMARY - Target organ: Bilateral capitan grande kidneys - Antegrade nephrostogram(s) via the existing [...] contrast injection. Pre-existing genitourinary catheter: 10 F [employer] nephrostomy Genitourinary catheter(s) placed: 10 F [employer] nephrostomy Findings: Appropriate positioning of the distal pigtail within the renal pelvis External catheter securement: Non-absorbable suture Left genitourinary catheter exchange Local anesthesia was administered. Initial nephrostogram was performed. A wire was placed through the existing tube and it was removed. The new tube was advanced over the wire and position was confirmed with contrast injection. Pre-existing genitourinary catheter: 8 F [employer] nephrostomy Genitourinary catheter(s) placed: 10.2 F Wilmer French Findings: Appropriate positioning of the distal [...] performed by the: attending radiologist, without an sound assistant. The attending radiologist performed the following procedural activities: Total procedure IMPRESSION IMPRESSION: UNEVENTFUL EXCHANGE OF A RIGHT 10 SENEGALESE NEPHROSTOMY CATHETER AND A LEFT 10.2 SENEGALESE NEPHROSTOMY CATHETER. PLAN: Catheter may be allowed to drain passively into bag until next catheter exchange. Patient may return in 12 weeks for routine exchange. Attestation Signer name: Lisa Alcaraz MD I attest that I was present for the entire procedure. I reviewed the stored images and agree with the report as written. Shaping Machine Operator: PSCB Transcribe Date/Time: Aug 03 2025 12:32P Dictated by : LISA ALCARAZ MD This examination was interpreted and the report reviewed and electronically signed by: LISA ALCARAZ MD on Aug 03 2025 12:35PM EST Authorizing ProviderResult TypeResult StatusLisa Alcaraz MDVASCULAR IMAGING REGIONALFinal Result * (ABNORMAL) GLUCOSE, BLOOD (POC) (08/03/2025 9:59 AM EST)ComponentValueRef RangeTest MethodAnalysis TimePerformed AtPathologist SignatureGlucose, Point of Gcwe336(A)74 - 99 mg/dLThe [facility] Specialty HospitalComment: Location:[facility], [address] [place] [address], [address] The Accu-Chek Inform II glucose meter has [...] 9:59 AM EST Narrative Authorizing ProviderResult TypeResult StatusSt. [facility] TESTINGFinal ResultPerforming OrganizationAddressCity/State/ZIP CodePhone Number [facility] [address] [place], [place] documented in this encounter Visit Diagnoses Diagnosis Ureteral stricture Stricture or kinking of ureter Ureteral stricture Stricture or kinking of ureter documented in this encounter Care Teams Team MemberRelationshipSpecialtyStart DateEnd Date Shukri Heath MD [address] [place] [address] PCP - GeneralFamily Medicine02/11/23documented as of this encounter
--- OUTSIDE RECORDS SUMMARY | 2025-08-14 07:40 | XMS_ITS | Clinical Summary ---
Author Organization [facility] Address [address] [place] [address] Care Team Providers Care Sheet Metal Layout Mechanic Name Role Phone Unavailable Primary Care Provider Unavailabl e Encounters DateTypeDepartmentCare NddtBxsvyyooaju28/08/2025External Result Encounter [facility] Unsolicited Brook Huddleston MD 07/24/2025External Result Encounter [facility] Unsolicited Brook Huddleston MD 07/24/2025External Result Encounter [facility] Unsolicited Brook Huddleston MD 07/24/2025External Result Encounter [facility] Unsolicited Brook Huddleston MD 07/18/2025External Result Encounter [facility] Unsolicited Brook Huddleston MD 05/29/2025External Result Encounter [facility] Unsolicited Brook Huddleston MD from Last 3 Months Social History Tobacco UseTypesPacks/DayYears UsedDateSmoking Tobacco: Never AssessedSex and Gender InformationValueDate RecordedSex Assigned at BirthNot on fileLegal Sex Male10/29/2022 11:46 PM EDTGender IdentityNot on fileSexual OrientationNot on file Plan of Treatment Not on file Procedures Procedure NamePriorityDate/TimeAssociated DiagnosisCommentsPROTEIN ELECTRO, RANDOM IDRZWGevukdq07/08/2025 3:52 PM EST IMMUNOFIXATION,SERUM ([facility])Ynbvqrs7807/24/2025 3:51 PM EST PROTEIN ELECTROPHORESIS, EZLJMGihueep93/08/2025 3:51 PM EST FREE K+L LT CHAINS, QN, RBepussc73/08/2025 3:51 PM EST RNWRMODKEqfpvtj25/08/2025 3:51 PM EST IRON AND TOTAL IRON BINDING LPCETNDQYcgodxy85/08/2025 3:51 PM EST LACTATE HQCMNIJJVYNHDUldzcso86/08/2025 3:51 PM EST COMPREHENSIVE METABOLIC YQYHBQwqsbzq88/08/2025 3:51 PM EST CBC WITH AUTO PMNGUWGKVIFFVumjtqb35/08/2025 3:51 PM EST CBC WITH AUTO YKSITIIWOOUUMWTY89/02/2025 1:26 PM EST CBC WITH AUTO WQXUUARPKCBCNONL49/13/2025 12:56 PM EDT from Last 3 Months Results * PROTEIN ELECTRO, RANDOM URINE (07/24/2025 3:52 PM EST)ComponentValueRef Range Test MethodAnalysis TimePerformed AtPathologist SignaturePROTEIN, TOTAL, URINE 77.6Not Estab. mg/dL07/27/2025 3:08 PM ESTFIRELANDSALBUMIN, URINE36.5. % 07/27/2025 3:08 PM DJXWWXBSURKGPNTOR-6-ZSLDHUHO, URINE3.4. %07/27/2025 3:08 PM WMXPVGUTSHHWBKBLN-8-GQPQCJRL, URINE16.6. %07/27/2025 3:08 PM ESTFIRELANDSBETA GLOBULIN, URINE25.8. %07/27/2025 3:08 PM ESTFIRELANDSGAMMA GLOBULIN, URINE17.7 . %07/27/2025 3:08 PM ESTFIRELANDSM-SPIKE %Comment:Not Observed %07/27/2025 3:08 PM ESTFIRELANDSComment: UPE shows asymmetrical beta. ??Suggest urine JOSE C, Serum PE/JOSE C, and free light chain analysis for further evaluation. PLEASE NOTE:Comment.07/27/2025 3:08 PM ESTFIRELANDSComment: Protein electrophoresis scan will follow via computer, mail, or commercial teller delivery. Performed at: ??[address] ??[id number] Bridge Design Engineer: Melchor Agrawal PhD, Phone: ??[phone] Specimen (Source)Anatomical Location / LateralityCollection Method / Volume Collection TimeReceived IsarBhmhc11/08/2025 3:52 PM EST07/24/2025 3:52 PM EST Narrative Authorizing ProviderResult TypeResult StatusBrook Janes Flaquito [facility] BLOOD ORDERABLES Final ResultPerforming OrganizationAddressty/State/ZIP CodePhone Number [address] [place] [address], [place] * FREE K+L LT CHAINS, QN, S (07/24/2025 3:51 PM EST)ComponentValueRef RangeTest MethodAnalysis TimePerformed AtPathologist SignatureFREE KAPPA LIGHT CHAINS, S 85.13.3 - 19.4 mg/L109/25/2024 2:36 PM ESTFIRELANDSFREE LAMBDA LIGHT CHAINS, S 58.65.7 - 26.3 mg/L109/25/2024 2:36 PM ESTFIRELANDSKAPPA/LAMBDA RATIO, S1.45 0.26 - 1.6507/25/2025 2:36 PM ESTFIRELANDSComment: Performed at: ??[facility] ??[id number] Bridge Design Engineer: Melchor Agrawal PhD, Phone: ??[phone] Specimen (Source)Anatomical Location / LateralityCollection Method / Volume Collection TimeReceived TimeOtherTopography unknown / Yzgutsv3707/24/2025 3:51 PM EST07/24/2025 3:51 PM EST Narrative Authorizing ProviderResult TypeResult StatusBrook Janes Flaquito [facility] BLOOD ORDERABLES Final ResultPerforming OrganizationAddNorristown State Hospitalty/[facility]/ZIP CodePhone Number [address] [place] [address], * IMMUNOFIXATION,SERUM ([facility]) (07/24/2025 3:51 PM EST)ComponentValueRef Range Test MethodAnalysis TimePerformed AtPathologist SignatureIMMUNOFIXATION, SERUM Comment:.07/26/2025 9:08 AM ESTFIRELANDSComment: Presence of monoclonal protein is unclear at this time. Suggest repeat in 3 to 6 months if clinically indicated. IMMUNOGLOBULIN G1,904594 - 1,613 mg/dL07/26/2025 9:08 AM [facility] IMMUNOGLOBULIN A, WEQNK99701 - 437 mg/dL07/26/2025 9:08 AM ESTFIRHOUSTONS IMMUNOGLOBULIN M, IPIJG8353 - 143 mg/dL07/26/2025 9:08 AM ESTFIRELANDSComment: Performed at: ?? - [facility] [address] ??[id number] Bridge Design Engineer: Melchor Agrawal PhD, Phone: ??[phone] Specimen (Source)Anatomical Location / LateralityCollection Method / Volume Collection TimeReceived TimeOtherTopography unknown / Yacxjfp7607/24/2025 3:51 PM EST07/24/2025 3:51 PM EST Narrative Authorizing ProviderResult TypeResult StatusBrook Huddleston MDLAB BLOOD ORDERABLES Final ResultPerforming OrganizationAddressCity/State/ZIP CodePhone Number [address] * (ABNORMAL) CBC auto differential (07/24/2025 3:51 PM EST) Only the most recent of3 resultswithin the time period is included. ComponentValueRef RangeTest MethodAnalysis TimePerformed AtPathologist Signature WBC10.24.1 - 10.5 [CFU]/mL07/24/2025 4:18 PM [facility] UNCORRECTED WHITE BLOOD COUNT10.24.1 - 10.5 10*3/uL07/24/2025 4:18 PM [facility] CtrRBC3.08(L)3.90 - 5.60 10*6/uL07/24/2025 4:18 PM [facility] SwmQXYJXNNBHJ51.5(L)13.0 - 17.0 g/dL07/24/2025 4:18 PM [facility] KwwWAJSZNYHQW86.1(L)38.8 - 50.0 % 07/24/2025 4:18 PM [facility] VkyNFQ508.983.5 - 101 fL 07/24/2025 4:18 PM [facility] XxbAAL32.027.5 - 35.2 pg 07/24/2025 4:18 PM [facility] WjnVBXV98.732.5 - 35.6 g/dL 07/24/2025 4:18 PM [facility] CtrRED CELL DISTRIBUTION WIDTH, RDW15.7(H)12.0 - 14.8 %07/24/2025 4:18 PM [facility] PLATELET CFJJZ908603 - 450 10*3/uL07/24/2025 4:18 PM [facility] CtrMEAN PLATELET VOLUME, MPV7.86.6 - 10.1 fL07/24/2025 4:18 PM [facility] CtrNEUTROPHILS, %81.4. %07/24/2025 4:18 PM [facility] CtrLYMPHOCYTES, %11.4. %07/24/2025 4:18 PM [facility] CtrMONOCYTE/MACROPHAGE, %3.2. %07/24/2025 4:18 PM [facility] CtrEOSINOPHILS, %3.5. %07/24/2025 4:18 PM [facility] CtrBASOPHILS, %0.5. %07/24/2025 4:18 PM [facility] CtrNRBC0.10 - 0.5 /100{WBC}07/24/2025 4:18 PM [facility] CtrNEUTROPHILS8.3(H)1.8 - 7.7 10*3/uL07/24/2025 4:18 PM [facility] CtrLYMPHOCYTES1.21.00 - 4.8 10*3/uL07/24/2025 4:18 PM [facility] CtrMONOCYTES0.30.0 - 0.8 10*3/uL07/24/2025 4:18 PM [facility] CtrEOSINOPHILS0.40.0 - 0.45 10*3/uL07/24/2025 4:18 PM [facility] CtrBASOPHILS0.10.0 - 0.2 10*3/uL07/24/2025 4:18 PM [facility] CtrSpecimen (Source)Anatomical Location / LateralityCollection Method / VolumeCollection TimeReceived TimeBlood (Blood) 07/24/2025 3:51 PM EST07/24/2025 3:51 PM EST Narrative Authorizing ProviderResult TypeResult StatusBrook Huddleston MDLAB BLOOD ORDERABLES Final ResultPerforming OrganizationAddressCity/State/ZIP CodePhone Number [address] [place] [place] [address], [facility] [address] [place] [address] * (ABNORMAL) Iron and TIBC (07/24/2025 3:51 PM EST)ComponentValueRef RangeTest MethodAnalysis TimePerformed AtPathologist AjfywtlzzOUVT28(L)50 - 212 ug/dL 07/24/2025 4:34 PM [facility] CtrTOTAL IRON BINDING JRQIKGKK673(L)255 - 450 ug/dL07/24/2025 4:34 PM [facility]% IRON BJYQOUZYGR88.520 - 50 %07/24/2025 4:34 PM [facility] PhkEMUGBQNUPHM486(L)203 - 362 mg/dL07/24/2025 4:34 PM [facility] CtrSpecimen (Source)Anatomical Location / Laterality Collection Method / VolumeCollection TimeReceived TimeOtherTopography unknown / Hefereh1307/24/2025 3:51 PM EST07/24/2025 3:51 PM EST Narrative Authorizing ProviderResult TypeResult StatusBrook HAN BLOOD ORDERABLES Final ResultPerforming OrganizationAddressty/State/ZIP CodePhone Number [address] [place] [address], [facility] [address] [place] [address] * Protein electrophoresis, serum (07/24/2025 3:51 PM EST)ComponentValueRef Range Test MethodAnalysis TimePerformed AtPathologist SignatureTOTAL PROTEIN, SERUM 6.76.0 - 8.5 g/dL07/25/2025 4:09 PM ESTFIRELANDSALBUMIN, SERUM3.02.9 - 4.4 g/dL07/25/2025 4:09 PM HUOFIHRSZTZMVRNHW-3-BTOCTJFO8.40.0 - 0.4 g/dL07/25/2025 4:09 PM RLPWBPBFMYHYBEBSH-2-UQOZVBXI2.10.4 - 1.0 g/dL07/25/2025 4:09 PM EST [place]SB[place] GLOBULIN1.00.7 - 1.3 g/dL07/25/2025 4:09 PM ESTFIRELANDSGAMMA GLOBULIN1.30.4 - 1.8 g/dL07/25/2025 4:09 PM ESTFIRELANDSM-SPIKENot ObservedNot Observed g/dL07/25/2025 4:09 PM ESTFIRELANDSGLOBULIN, TOTAL3.72.2 - 3.9 g/dL 07/25/2025 4:09 PM ESTFIRELANDSA/G RATIO0.80.7 - 1.7109/25/2024 4:09 PM EST FIRELANDSSPE-NOTEComment.07/25/2025 4:09 PM ESTFIRELANDSComment: Protein electrophoresis scan will follow via computer, mail, or commercial teller delivery. Performed at: ?? - [facility] ??[id number] Bridge Design Engineer: Melchor Agrawal PhD, Phone: ??[phone] Specimen (Source)Anatomical Location / LateralityCollection Method / Volume Collection TimeReceived TimeOtherTopography unknown / Vyguezo1707/24/2025 3:51 PM EST07/24/2025 3:51 PM EST Narrative Authorizing ProviderResult TypeResult StatusBrook HAN BLOOD ORDERABLES Final ResultPerforming OrganizationAddressCity/State/[facility] CodePhone Number [facility] [address] [place], [place] [address] * Lactate dehydrogenase (07/24/2025 3:51 PM EST)ComponentValueRef RangeTest MethodAnalysis TimePerformed AtPathologist SignatureLD LACTATE DEHYDROGENASE 275680 - 271 U/L109/24/2024 4:34 PM [facility] CtrSpecimen (Source)Anatomical Location / LateralityCollection Method / VolumeCollection TimeReceived TimeOtherTopography unknown / Fbppgvb8307/24/2025 3:51 PM EST 07/24/2025 3:51 PM EST Narrative Authorizing ProviderResult TypeResult StatusBrook HAN BLOOD ORDERABLES Final ResultPerforming OrganizationAddressCity/State/ZIP CodePhone Number [facility] [address] [facility] [place] [address], [facility] [address] [place] [address] * Ferritin (07/24/2025 3:51 PM EST)ComponentValueRef RangeTest MethodAnalysis TimePerformed AtPathologist ApnkuutvxFIHJLXAW869.823.9 - 336.2 ng/mL07/24/2025 4:54 PM [facility] CtrSpecimen (Source)Anatomical Location / LateralityCollection Method / VolumeCollection TimeReceived TimeOther Topography unknown / Oattxvv4507/24/2025 3:51 PM EST07/24/2025 3:51 PM EST Narrative Authorizing ProviderResult TypeResult StatusBrook Huddleston MDLAB BLOOD ORDERABLES Final ResultPerforming OrganizationAddressCity/State/ZIP CodePhone Number [facility] [address] [facility] [place] [address], [facility] [address] [place] [address] * (ABNORMAL) Comprehensive metabolic panel (07/24/2025 3:51 PM EST)Component ValueRef RangeTest MethodAnalysis TimePerformed AtPathologist SignatureGlucose 283(H)70 - 100 mg/dL07/24/2025 4:34 PM [facility] Comment: Random Glucose Reference Range is dependent on time and content of last meal. Glucose of more than 200 mg/dL in a nonstressed, ambulatory subject supports the diagnosis of Diabetes Mellitus. ADA recommended reference range BUN30(H)7 - 25 mg/dL07/24/2025 4:34 PM [facility] CREATININE2.77(H)0.70 - 1.30 mg/dL07/24/2025 4:34 PM [facility] CtrESTIMATED GFR22.0116607/24/2025 4:34 PM [facility] NssHohhik370(L)136 - 145 mmol/L109/24/2024 4:34 PM [facility] CtrPotassium, Bld4.73.5 - 5.1 mmol/L109/24/2024 4:34 PM [facility] QlcPtarctls77594 - 107 mmol/L109/24/2024 4:34 PM [facility] CtrCarbon Ahfqssf10.921.0 - 31.0 mmol/L109/24/2024 4:34 PM [facility] CtrAnion Gap11.86.0 - 15.012 4:34 PM [facility] CtrCalcium8.98.6 - 10.3 mg/dL07/24/2025 4:34 PM [facility] CtrTOTAL PROTEIN6.86.4 - 8.9 g/dL07/24/2025 4:34 PM [facility] CtrALBUMIN LEVEL3.73.5 - 5.7 g/dL07/24/2025 4:34 PM [facility] CtrGLOBULIN3.1g/dL07/24/2025 4:34 PM [facility] CtrALBUMIN/GLOBULIN RATIO1.212 4:34 PM [facility] CtrBILIRUBIN,TOTAL0.40.3 - 1.0 mg/dL07/24/2025 4:34 PM [facility] CtrASPARTATE AMINO YHFBLMGGRVL8131 - 39 U/L109/24/2024 4:34 PM [facility] CtrALANINE PIBIUFNWYHRVQULW277 - 52 U/L 07/24/2025 4:34 PM [facility] CtrALKALINE UAIBANLLBMZ241(H)34 - 104 U/L109/24/2024 4:34 PM [facility] CtrCREATININE CLR CALC MOAXNZNI98.4807/24/2025 4:34 PM [facility] CtrSpecimen (Source)Anatomical Location / LateralityCollection Method / VolumeCollection TimeReceived TimeOtherTopography unknown / Rcxprys0407/24/2025 3:51 PM EST 07/24/2025 3:51 PM EST Narrative Authorizing ProviderResult TypeResult StatusBrook Huddleston MDLAB BLOOD ORDERABLES Final ResultPerforming OrganizationAddressCity/State/ZIP CodePhone Number [facility] [address] [place] [address], [facility] [address] [place] [address] from Last 3 Months Insurance
--- OUTSIDE RECORDS SUMMARY | 2025-08-14 07:40 | XMS_ITS | Encounter Summary ---
Author Organization [facility] Address [address] [place] [address] Care Team Providers Care Neonatologist Name Role Phone Shukri Heath MD Primary Care Provider + Source Comments In the event this information is protected by the Federal Confidentiality of Alcohol and Drug AbusePatient Records regulations: The Federal rules restrict any use of the information to criminally investigate or prosecute any alcohol or drug abuse patient.[facility] Reason for Visit * ReasonCommentsAppointment Encounter Details DateTypeDepartmentCare Team (Latest Contact Info)Qxjidcvzxwo33/17/2025Telephone [facility] Radiology Procedure [address] [place] [address] Linda Mills, EVY Appointment Social History Tobacco UseTypesPacks/DayYears UsedDateSmoking Tobacco: ZvbichWoxahiusna1Lnvx: 1980Smokeless Tobacco: NeverAlcohol UseStandard Drinks/WeekCommentsYes0 (1 standard drink = 0.6 oz pure alcohol)none since 1990 ishArea Deprivation Index AnswerDate RecordedNational Score (1-100), lower number is lower risk63 01/07/2023State Score (1-10), lower number is lower xelr621ata from: https://www.neighborhoodatlas.medicine.[facility]/. Last address used for ezv[address] [facility] [address]23501/07/2023Sex and Gender InformationValueDate RecordedSex Assigned at BirthNot on fileLegal LcnTjiq3112/19/2022 11:18 AM EDT Gender IdentityNot on fileSexual OrientationNot on filedocumented as of this encounter Miscellaneous Notes * Telephone Encounter - Linda Mills RN - 08/02/2025 3:03 PM EST Called pt to discuss change in arrival time. Spoke with patients . Pt to come in at 930am instead of original scheduled 1030am. Stated understanding and that they would be here as close to 930 aspossible. 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 TENDER HELPER [address] [place] [address] PERC EXCHANGE NEPHROSTOMY CATH, INCLUDING DIAGNOSTIC NEPHROSTOGRAM/URETEROGRAM WHEN PERFORMED,IMAGING GUIDANCE AND ALL ASSOCIATED RAD S&INamePriorityAssociated DiagnosesDate/TimePERC EXCHANGE NEPHROSTOMY CATH, INCLUDING DIAGNOSTIC NEPHROSTOGRAM/URETEROGRAM WHEN PERFORMED,IMAGING GUIDANCE AND ALL ASSOCIATED RAD S&I Ureteral stricture 09/28/2025 11:30 AM ESTdocumented as of this encounter Visit Diagnoses Not on filedocumented in this encounter Care Teams Team MemberRelationshipSpecialtyStart DateEnd Date Shukri Heath MD [address] [place] [address] PCP - GeneralFamily Medicine6/28/23documented as of this encounter
--- OUTSIDE RECORDS SUMMARY | 2025-08-14 07:40 | XMS_ITS | Clinical Summary ---
Author Organization [facility] Address [address] [place] [address] Phone Care Team Providers Care Assembler Carbon Brushes Name Role Phone Shukri Heath MD Primary Care Provider + Medications MedicationSigDispense QuantityRefillsLast FilledStart DateEnd DateStatus aspirin 81 mg capsule Take 1 tablet by mouth once daily.Active acyclovir (Zovirax) 400 mg tablet Take 1 tablet (400 mg) by mouth 2 times a day.09/03/2020ctive atorvastatin (Lipitor) 20 mg tablet Take 1 tablet (20 mg) by mouth once daily at bedtime.09/03/2020ctive cephalexin (Keflex) 500 mg capsule TAKE 1 CAPSULE BY MOUTH FOUR TIMES DAILY FOR 3 DAYS03/05/2023ctive cholecalciferol (Vitamin D-3) 50 MCG (2000 UT) tablet Take 1 tablet (2,000 Units) by mouth once daily.09/03/2020ctive cholecalciferol (Vitamin D-3) 50 mcg (2,000 unit) capsule Take by mouth.Active ciprofloxacin (Cipro) 500 mg tablet Take 1 tablet (500 mg) by mouth once daily.11/13/2022ctive famotidine (Pepcid) 20 mg tablet Take 1 tablet (20 mg) by mouth once daily at bedtime.09/03/2020ctive fluconazole (Diflucan) 100 mg tablet Take 1 tablet (100 mg) by mouth once daily.07/30/2022ctive furosemide (Lasix) 20 mg tablet Take by mouth.Active hydrALAZINE (Apresoline) 25 mg tablet Take 1 tablet (25 mg) by mouth 2 times a day.06/25/2020Active Lantus Solostar U-100 Insulin 100 unit/mL (3 mL) pen Inject under the skin.Active HumaLOG KwikPen Insulin 100 unit/mL injection Inject under the skin.04/18/2020Active lenalidomide (Revlimid) 5 mg capsule Take by mouth.Active levoFLOXacin (Levaquin) 500 mg tablet Take 1 tablet (500 mg) by mouth once daily.06/01/2023ctive lisinopril 10 mg tablet 03/31/2023ctive losartan (Cozaar) 25 mg tablet Take 1 tablet (25 mg) by mouth once daily.06/08/2023ctive metFORMIN (Glucophage) 500 mg tablet Take by mouth twice a day.Active metFORMIN XR 500 mg 24 hr tablet 05/12/2023ctive oxybutynin XL (Ditropan-XL) 10 mg 24 hr tablet 05/12/2023ctive oxybutynin XL (Ditropan-XL) 5 mg 24 hr tablet Take 1 tablet (5 mg) by mouth 2 times a day.10/23/2022ctive oxyCODONE (Roxicodone) 5 mg immediate release tablet TAKE 1 TABLET BY MOUTH EVERY 6 HOURS NEEDED FOR PAIN FOR UP TO 2 (TWO) DAYS 03/05/2023ctive Unifine Pentips 31 gauge x 3/16 needle USE DIRECTED FOUR TIMES DAILY05/12/2023ctive potassium chloride CR 20 mEq ER tablet 10/12/2022ctive predniSONE (Deltasone) 20 mg tablet TAKE 3 TABLETS BY MOUTH DAILY FOR 3 DAYS then TAKE 2 TABLETS BY MOUTH DAILY FOR 3 DAYS then TAKE 1 TABLET BY MOUTH DAILY FOR 3 DAYS11/27/2022ctive Gary-Phos 250 Neutral tablet Take 1 tablet (250 mg) by mouth 3 times a day.01/15/2023ctive tamsulosin (Flomax) 0.4 mg 24 hr capsule Take 1 capsule (0.4 mg) by mouth once daily.Active traMADol (Ultram) 50 mg tablet Take 1 tablet (50 mg) by mouth 3 times a day as needed.09/03/2020ctive trospium (Sanctura) 20 mg tablet Take 1 tablet (20 mg) by mouth once daily at bedtime.09/18/2022ctive zolpidem (Ambien) 10 mg tablet Take by mouth.04/18/2020Active Active Problems ProblemNoted DateDiagnosed VzrzKpkcvvzrovrmoq74/15/1755Klrkjjzssdsk78/15/2023 Stem cells transplant dnbdnz6207/01/2023 Immunizations ImmunizationAdministration DatesNext DueFlu vaccine, trivalent, preservative free, HIGH-DOSE, age 65y+ (Fluzone)05/18/2022,06/02/2019Hep B, 20 yrs and older, Dialysis (RECOMBIVAX)03/22/2020Hepatitis A vaccine, age 19 years and greater (HAVRIX)07/28/2022,02/05/2022HiB PRP-T conjugate vaccine (HIBERIX, ACTHIB) 06/24/2021,04/29/2021Influenza, seasonal, intradermal, preservative free 05/04/2020PPD Test03/13/2020Pneumococcal conjugate vaccine, 13-valent (PREVNAR 13)06/24/2021,04/29/2021,03/04/2021 Social History Tobacco UseTypesPacks/DayYears UsedDateSmoking Tobacco: Never AssessedSex and Gender InformationValueDate RecordedSex Assigned at BirthNot on fileLegal Sex Male07/12/2022 8:32 AM ESTGender IdentityNot on fileSexual OrientationNot on file Last Filed Vital Signs Vital SignReadingTime TakenCommentsBlood Kwzeguqr939/6504 9:57 AM EDT Fmjon1307 9:57 AM LEAWuxnpbihezo78.2 ??C (97.2 ??F)12/12/2021 9:57 AM EDTRespiratory Ijuu8711 9:57 AM EDTOxygen Djuzfnbzey87%12/12/2021 9:57 AM EDTInhaled Oxygen Concentration--Ytolbo16.9 kg (202 lb 9.6 oz)12/12/2021 9:57 AM XSLSgevam990 cm (5' 8.5 )12/12/2021 9:57 AM EDTBody Mass Index30.35012/12/2021 9:57 AM EDT Plan of Treatment Health MaintenanceDue DateLast DoneCommentsLipid Panel1945OVID-19 Vaccine (#1)1945DTaP/Tdap/Td Vaccines (1 - Tdap)1967Zoster Vaccines (1 of 2) 1995RSV High Risk: (Elderly (60+) or Population) (1 - 1-dose 75+ series)02/05/2020Medicare Annual Wellness Visit (AWV), 02/08/2018, 02/05/2017Hepatitis B Vaccines (2 of 3 - 19+ 3-dose series) /01/2020Pneumococcal Vaccine (2 of 2 - PCV20 or PCV21)06/24/2022 06/24/2021, 04/29/2021, 03/04/2021Influenza Vaccine (#1)510/09/2021, 05/04/2020, 06/02/2019, Additional history existsHIB VaccinesAged Out06/24/2021, 04/29/2021No longer eligible based on patient's age to complete this topic Hepatitis A VaccinesAged Out07/28/2022, 02/05/2022No longer eligible based on patient's age to complete this topicHPV VaccinesAged OutNo longer eligible based on patient's age to complete this topicIPV VaccinesAged OutNo longer eligible based on patient's age to complete this topicMeningococcal VaccineAged OutNo longer eligible based on patient's age to complete this topicRotavirus Vaccines Aged OutNo longer eligible based on patient's age to complete this topic Insurance Advance Directives For more information, please contact: [phone] (Available ) TypeDate RecordedPatient RepresentativeExplanationAdvance Directives and Living Will05/30/2020Advance Directives and Living Will05/30/2020Healthcare Power of Atty1Living Will05/29/2020 Care Teams Team MemberRelationshipSpecialtyStart DateEnd Date Shukri Heath MD [address] [place] [address] [facility] - [facility]04/26/20
--- OUTSIDE RECORDS SUMMARY | 2025-08-14 07:40 | XMS_ITS | Encounter Summary ---
Author Organization [facility] Address [address] [place] [address] Care Team Providers Care Stock Counter Name Role Phone Shukri Heath MD Primary Care Provider + Source Comments In the event this information is protected by the Federal Confidentiality of Alcohol and Drug AbusePatient Records regulations: The Federal rules restrict any use of the information to criminally investigate or prosecute any alcohol or drug abuse patient.[facility] Reason for Visit * ReasonCommentsIR Outpatient Tube Appointment Request Encounter Details DateTypeDepartmentCare Team (Latest Contact Info)Gkmetnoapov30/18/2025Telephone [facility] Radiology Procedure [address] [place] [address] Linda Mills RN IR Outpatient Tube Appointment Request Social History Tobacco UseTypesPacks/DayYears UsedDateSmoking Tobacco: UikezzXhxawduktx2Imre: 1980Smokeless Tobacco: NeverAlcohol UseStandard Drinks/WeekCommentsYes0 (1 standard drink = 0.6 oz pure alcohol)none since 1990 [facility] Dep[facility] AnswerDate RecordedNational Score (1-100), lower number is lower risk63 05/24/2023State Score (1-10), lower number is lower nzru373ata from: https://www.neighborhoodatlas.[facility].[place].[facility]/. Last address used for qtsblahekrr[address] [facility] [address]6801/07/2023Sex and Gender InformationValueDate RecordedSex Assigned at BirthNot on fileLegal QwuCchp5712/19/2022 11:18 AM EDT Gender IdentityNot on fileSexual OrientationNot on filedocumented as of this encounter Miscellaneous Notes * Telephone Encounter - Ana Marques - 08/03/2025 3:18 PM EST Pt is due 09/28/25. Need qgenda schedule. * Telephone Encounter - Linda Mills RN - 08/03/2025 10:46 AM EST Tube Exchange Appointment Request Form Person filling out this form: Linda Mills RN Date: August 03, 2025 Time: 10:46 AM Patient Name: Jacky Mills Patient What type of tube is this? Nephrostomy or nephroureteral (tube in the back) Does this tube need exchanged? Yes, How many weeks? 8 to 10 weeks Per physician direction, does this need to be physician specific? No Does this patient require DAVIN? No Per physician, can this exchange be done in the region? [place] / [place] ( [place] ) If the patient has an already existing exchange appointment can that one be cancelled? 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 [address] [place] [address] PERC EXCHANGE NEPHROSTOMY CATH, INCLUDING DIAGNOSTIC NEPHROSTOGRAM/URETEROGRAM WHEN PERFORMED,IMAGING GUIDANCE AND ALL ASSOCIATED RAD S&INamePriorityAssociated DiagnosesDate/TimePERC EXCHANGE NEPHROSTOMY CATH, INCLUDING DIAGNOSTIC NEPHROSTOGRAM/URETEROGRAM WHEN PERFORMED,IMAGING GUIDANCE AND ALL ASSOCIATED RAD S&I Ureteral stricture 09/28/2025 11:30 AM ESTdocumented as of this encounter Visit Diagnoses Not on filedocumented in this encounter Care Teams Team MemberRelationshipSpecialtyStart DateEnd Date Shukri Heath MD [address] [place] [address] PCP - GeneralFamily Medicine02/11/23documented as of this encounter
--- OUTSIDE RECORDS SUMMARY | 2025-08-14 07:40 | XMS_ITS | Clinical Summary ---
Author Organization [facility] Address [address] [place] [address] Care Team Providers Care Marine Firefighter Name Role Phone Shukri Heath MD Primary Care Provider [phone] Allergies Active AllergyReactionsCriticalityNoted MmjkVmlvqwigVrkwgzavhjDuilAoo42/12/2024 Medications MedicationSigDispense QuantityRefillsLast FilledStart DateEnd DateStatus atorvastatin (Lipitor) 20 mg tablet Take 20 mg by mouth in the evening.Active famotidine (Pepcid) 20 mg tablet Take 20 mg by mouth at bedtime.Active oxyBUTYnin XL (Ditropan-XL) 10 mg 24 hr tablet Take 10 mg by mouth two times daily. Do not crush, chew, or split.Active aspirin 81 mg EC tablet Take 81 mg by mouth in the morning.Active cyanocobalamin (Vitamin B-12) 1,000 mcg tablet Take 1,000 mcg by mouth in the morning.Active cholecalciferol (Vitamin D3) 50 MCG (2000 UT) tablet Take 2,000 Units by mouth.Active SACCHAROMYCES BOULARDII ORAL Take 250 mg by mouth in the morning.Active iron bis-glycinat/vit C/FA/B12 (GENTLE IRON ORAL) Take 25 mg by mouth in the evening.Active docusate sodium (Colace) 50 mg capsule Take 50 mg by mouth in the morning.Active darbepoetin raymond (Aranesp, in polysorbate,) syringe Inject 10 mcg under the skin if needed (every other week as needed for hgb <10). Active acetaminophen (Tylenol) 500 mg tablet Take 650 mg by mouth every 6 (six) hours if needed for mild pain (1-3 pain score).Active nitrofurantoin, macrocrystal-monohydrate, (Macrobid) 100 mg capsule Take 100 mg by mouth if needed (catheter exchange). Take capsule before catheter change, and one capsule 12 hours afterActive insulin lispro (HumaLOG) 100 unit/mL injection Inject 1-11 Units under the skin with breakfast, with lunch, and with evening meal. 150-174: 1 unit 175-199: 2 units 200-224: 3 units 225-249: 4 units 250-274: 5 units 275-299: 6 units 300-324: 7 units 325-349: 8 units 350-374: 9 units 375-399: 10 units 400-424: 11 unitsActive insulin glargine (Lantus) 100 unit/mL injection vial Indications:Type 2 diabetes mellitus with chronic kidney disease, with long-term current use of insulin, unspecified CKD stage (CMS/HCC)Inject 10-15 Units under the skin at bedtime. 4.5 mL 07/30/2024ctive Active Problems ProblemNoted DateDiagnosed DateType 2 diabetes sjnnepsc37/14/2024cute kidney injury superimposed on CKD07/24/20246145Jccibnmgizaclw74/08/2024yelonephritis 07/24/2024Macrocytic qyqsoy2407/24/2024 Social History Tobacco UseTypesPacks/DayYears UsedDateSmoking Tobacco: FormerCigarettesQuit: 1999Passive Smoke Exposure: PastSmokeless Tobacco: NeverAHC UtilitiesAnswerDate RecordedIn the past 12 months has the [employer], gas, oil, or water Tower59 threatened to shut off services in your home?No07/24/2024Humiliation, Afraid, Rape, and Kick questionnaireAnswerDate RecordedWithin the last year, have you been afraid of your partner or ex-partner?No07/24/2024Emotionally AbusedNot on file07/24/2024hysically AbusedNot on file07/24/2024Sexually AbusedNot on file 07/24/2024Overall Financial Resource Strain (CARDIA)AnswerDate RecordedHow hard is it for you to pay for the very basics like food, housing, medical care, and heating?Not hard at all07/24/2024TransportationAnswerDate RecordedIn the past 12 months, has lack of transportation kept you from medical appointments or from getting medications?No07/24/2024Lack of Transportation (Non-Medical)Not on file 07/24/2024Housing Stability Vital SignAnswerDate RecordedUnable to Pay for Housing in the Last YearNot on file07/24/2024Number of Times Moved in the Last YearNot on file07/24/2024t any time in the past 12 months, were you homeless or living in a jail (including now)?No07/24/2024Hunger Vital SignAnswerDate RecordedWithin the past 12 months, you worried that your food would run out before you got the money to buymore.Never true07/24/2024an Out of Food in the Last YearNot on file07/24/2024Sex and Gender InformationValueDate RecordedSex Assigned at OsntgGpru16/09/2024 4:47 PM ESTLegal XbmMfhv00/06/2024 2:59 PM EST Gender ZnrwypirBnvq01/09/2024 4:47 PM ESTSexual OrientationHeterosexual or Dfuaadtl66/09/2024 4:47 PM EST Last Filed Vital Signs Vital SignReadingTime TakenCommentsBlood Yimpilmj786/7907/30/2024 8:55 AM EST Ftqfc985507/30/2024 8:55 AM GPMBfeukreufbk55.4 ??C (97.6 ??F)07/30/2024 8:55 AM ESTRespiratory Wvkc508909/30/2023 8:55 AM ESTOxygen Lduzlsallx517%07/30/2024 8:55 AM ESTInhaled Oxygen Concentration--Nqrmxh667 kg (222 lb 9.6 oz)07/26/2024 5:34 AM ZPTZgmaaz973.8 cm (5' 10 )07/24/2024 5:49 PM ESTBody Mass Index31.94 07/24/2024 5:49 PM EST Plan of Treatment Health MaintenanceDue DateLast DoneCommentsDiabetes: Hemoglobin A1C1945 Medicare Annual Wellness (AWV)1945Diabetes: Retinopathy Screening 1955Depression Rlglvitpo44/21/1957Diabetes: Urine Protein Screening 02/05/1964Adult Pldlnsu3802/04/1967Fall Risk Gqrsyrgvk67/21/2010Pneumococcal Vaccine: 50+ Years (2 of 2 - PPSV23, PCV20, or PCV21)/03/2021, 04/29/2021, 03/04/2021, Additional history existsCOVID-19 Vaccine ( season)/, 06/04/2021, 11/13/2020, Additional history exists Influenza Vaccine (#1)/, 07/28/2023, 05/18/2022, Additional history existsMeningococcal VaccineAged Out04/29/2021, 04/29/2021, 03/04/2021, Additional history existsNo longer eligible based on patient's age to complete this topicHIB VaccinesAged Out06/24/2021, 04/29/2021, 03/04/2021No longer eligible based on patient's age to complete this topicZoster VaccinesCompleted 03/03/2022, 07/31/2021, 10/27/2013HPV VaccinesAged OutNo longer eligible based on patient's age to complete this topicIPV VaccinesAged OutNo longer eligible based on patient's age to complete this topicMeningococcal B VaccineAged OutNo longer eligible based on patient's age to complete this topicRotavirus Vaccines Aged OutNo longer eligible based on patient's age to complete this topic Medical Devices ImplantedTypeAreaManufacturerDevice IdentifierShelf Expiration DateModel / Serial / LotStent,Ureteral,Soft,Tria,7x26 - [id number] Implanted:Qty: 1 on 07/28/2024 [facility]: [employer]reter[place] Cwweffundt01/27/[id number] / / [id number]:PREVIOUS STENT NOT PLACED AT [facility] Stent,Ureteral,Soft,Tria,7x26 - [id number] Implanted:Qty: 1 on 07/28/2024 by [facility]: UreterBoston Tdkynfydqy51/27/[id number] / / [id number]:PREVIOUS STENT NOT PLACED AT [facility] Insurance * Guarantor: Jacky Millscorachael TypeRelation to PatientDate of BirthPhone Billing AddressPersonal/ZalbymWsxs1945 [address] [address] [place] [address] Advance Directives * Full Code (Latest Code Status on File) Date ActivatedDate UrgyghmvokzPfjvvqkn10/8/2024 6:38 PM07/30/2024 4:40 PM Care Teams Team MemberRelationshipSpecialtyStart [place] [address] [place] [address] PCP - Yqcynec41/9/24
--- OUTSIDE RECORDS SUMMARY | 2025-08-14 07:40 | XMS_ITS | Encounter Summary ---
Author Organization Address [address] [place] [address] Care Team Providers Care Negative Developer Name Role Phone Shukri Heath MD Primary Care Provider + Source Comments In the event this information is protected by the Federal Confidentiality of Alcohol and Drug AbusePatient Records regulations: The Federal rules restrict any use of the information to criminally investigate or prosecute any alcohol or drug abuse patient. Encounter Details DateTypeDepartmentCare Team (Latest Contact Info)Aqxiykkqjne35/18/2025Travel Social History Tobacco UseTypesPacks/DayYears UsedDateSmoking Tobacco: PybbxqOehsysaigw1Krta: 1980Smokeless Tobacco: NeverAlcohol UseStandard Drinks/WeekCommentsYes0 (1 standard drink = 0.6 oz pure alcohol)none since 1990 ishArea Deprivation Index AnswerDate RecordedNational Score (1-100), lower number is lower risk63 01/07/2023State Score (1-10), lower number is lower tums1103Data from: https://www.neighborhoodatlas.medicine.[facility].edu/. 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 [address] [place] [address] PERC EXCHANGE NEPHROSTOMY CATH, INCLUDING DIAGNOSTIC NEPHROSTOGRAM/URETEROGRAM WHEN PERFORMED,IMAGING GUIDANCE AND ALL ASSOCIATED RAD S&INamePriorityAssociated DiagnosesDate/TimePERC EXCHANGE NEPHROSTOMY CATH, INCLUDING DIAGNOSTIC NEPHROSTOGRAM/URETEROGRAM WHEN PERFORMED,IMAGING GUIDANCE AND ALL ASSOCIATED RAD S&I Ureteral stricture 09/28/2025 11:30 AM ESTdocumented as of this encounter Visit Diagnoses Not on filedocumented in this encounter Care Teams Team MemberRelationshipSpecialtyStart DateEnd Date Shukri Heath MD [address] [place] [id number] PCP - GeneralFamily Medicine02/11/23documented as of this encounter
--- OUTSIDE RECORDS SUMMARY | 2025-08-14 07:40 | XMS_ITS | Clinical Summary ---
Author Organization [facility] Address [address] [place] [address] Care Team Providers Care Lumber Puller Name Role Phone Shukri Heath MD Primary Care Provider + Allergies Active AllergyReactionsCriticalityNoted RmgrDknbngkuIocgblayttGdjn30/04/2022 MirabegronDiarrhea,GI ZivebDhqj99/11/2022dhesive Tape-WjtynflhmYcxo59/23/2025 Including allevyn dressings Medications MedicationSigDispense QuantityRefillsLast FilledStart DateEnd DateStatus aspirin 81 mg chewable tablet mg tab(s), Chewed, Daily, Refills(s) ctive atorvastatin (LIPITOR) 20 mg tablet Take by mouth.10/15/2020ctive famotidine (PEPCID) 20 mg tablet Take 20 mg by mouth.08/15/2020Active metFORMIN ER (GLUCOPHAGE XR) 500 mg 24 hr tablet 12/23/2022ctive oxybutynin ER (DITROPAN XL) 10 mg 24 hr tablet 12/29/2022ctive MEN'S MULTI-VITAMIN ORAL Multi Vitamin Mens ActiveActive Cholecalciferol, Vitamin D3, (D3-2000) 50 mcg (2,000 unit) cap Take by mouth.11/13/2020ctive Lactobacillus acidophilus (PROBIOTIC) 10 billion cell cap probiotic as directed ActiveActive lisinopril (ZESTRIL) 10 mg tablet Take by mouth q 24 HR.01/14/2023ctive LANTUS SOLOSTAR U-100 INSULIN 100 unit/mL (3 mL) 01/15/2023ctive insulin lispro (HUMALOG KWIKPEN) 100 unit/mL pen Inject 8 Units subcutaneously three times daily before meals. Plus sliding scale.Active docusate sodium (STOOL SOFTENER) 100 mg capsule Take 100 mg by mouth twice daily as needed for constipation.Active phosphorus (PHOSPHOROUS) 250 mg tablet Take 1 tablet by mouth three times daily.Active Active Problems ProblemNoted DateDiagnosed DateProstate balqdr5402/11/2023 Assessment & Plan (02/11/2023 1:26 PM EDT): Assessment: history of prostate CA s/p TURP No chemo or radiation Sqbmujvi43/28/2023 Assessment & Plan (02/11/2023 1:25 PM EDT): Assessment: on oral medication and insulin BS this AM 68 States run from 60-240 HTN (hypertension)02/11/2023 Assessment & Plan (02/11/2023 1:21 PM EDT): Assessment: stable on Lisinopril BP today 149/52 Iron deficiency zopucr4602/11/2023 Assessment & Plan (02/11/2023 1:26 PM EDT): Assessment: Following with Hematology Receiving Aranesp injections twice a month Rheumatoid qjwjsixfr92/01/2023 Assessment & Plan (02/11/2023 1:27 PM EDT): Assessment: using OTC pain medication Acjkoiyysybvsydidwhd68/19/2023 Assessment & Plan (02/11/2023 1:22 PM EDT): Assessment: stable on medication Bone marrow transplant 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/03/2022 Assessment & Plan (02/11/2023 1:26 PM EDT): Assessment: 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 vhbkrjf7505/08/2022 Assessment & Plan (02/11/2023 1:25 PM EDT): Assessment: stable per last labs Creatinine 1.45 Benign prostatic hyperplasia with urinary fkmggexvmrx39/26/2022 Assessment & Plan (02/11/2023 1:23 PM EDT): Assessment: on Ditropan Encounters DateTypeDepartmentCare WnyrYuylogbzcvz11/18/2025 10:30 AM EST - 08/03/2025 11:[facility] [address] [place] [address] Lisa Alcaraz MD PERC EXCHANGE NEPHROSTOMY CATH, INCLUDING DIAGNOSTIC NEPHROSTOGRAM/URETEROGRAM WHEN PERFORMED,IMAGING GUIDANCE AND ALL ASSOCIATED RAD S&I110/04/2024 9:35 AM EST - 08/03/2025 12:27 PM ESTHospital Encounter [facility] Radiology Procedure [address] [place] [address] Lisa Alcaraz MD Ureteral 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.5] Discharge Disposition: Home08/03/2025[facility] Radiology Procedure [address] [place] [address] Linda Mills, EVY IR Outpatient Tube Appointment Dpmddqm7908/03/20258637Aiysqu76/17/2025[facility] Radiology Procedure [address] [place] [address] Linda Mills RN Pjglmqzlyih90/10/2025[facility] Radiology Procedure [address] [place] [address] Yaa Gutierrez RN Radiology Pre Procedure Ueqkuwwomecs43/23/2025 11:00 AM EDT - 06/08/2025 12:30 [facility] [address] [place] [address] Jose Jackson MD PERC EXCHANGE NEPHROSTOMY CATH, INCLUDING DIAGNOSTIC NEPHROSTOGRAM/URETEROGRAM WHEN PERFORMED,IMAGING GUIDANCE AND ALL ASSOCIATED RAD S&I1 9:55 AM EDT - 06/08/2025 12:42 PM EDTHospital Encounter [facility] Radiology Procedure [address] [place] [address] Jose Jackson MD Ureteral 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.5] Discharge Disposition: Home06/08/2025[facility] Radiology Procedure [address] [place] [address] Chanel Juares, RN IR Outpatient Tube Appointment Dfkdyok0106/08/20259058Nxrspu80/15/2025 Patient Ing [facility] Radiology Procedure [address] [place] [address] Provider, Ccf You are scheduled for a Nephrostomy Tube Exchange, on May 05/31/2025Telephone [facility] Radiology Procedure [address] [place] [address] Gianfranco Morrison RN Radiology Pre Procedure Instructionsfrom Last 3 Months Immunizations ImmunizationAdministration DatesNext DueCOVID- original vaccine, full dose, monovalent (MODERNA)10/12/2020Haemophilus influenzae b (Hib PRP-T) vaccine, 4- dose series (ACTHIB, HIBERIX)06/24/2021,04/29/2021,03/04/2021iphtheria tetanus pertussis (DTaP) vaccine, pediatric, 5 pertussis antigens (DAPTACEL)06/24/2021, 04/29/2021,03/04/2021hepatitis A (HepA) vaccine, adult (HAVRIX, VAQTA)07/28/2022 ,02/05/2022hepatitis B (HepB) vaccine, 3-dose series, age 0 yr - 19 yr (ENGERIX B-PEDS, RECOMBIVAX HB-PEDS)06/24/2021,04/29/2021,03/04/2021influenza (HD-IIV3) vaccine, age 65+ yr, high dose, trivalent, PF (FLUZONE HIGH-DOSE)06/02/2019, 07/04/2015influenza (HD-IIV4) vaccine, age 65+ yr, high dose, quadrivalent, PF (FLUZONE HIGH-DOSE)05/18/2022influenza (aIIV4) vaccine, age 65+ yr, quadrivalent, PF (FLUAD QUAD)07/16/2021meningococcal (MenACWY-D) vaccine, quadrivalent (MENACTRA)04/29/2021,03/04/2021neumococcal conjugate (PCV13) vaccine, 13 valent (PREVNAR 13)06/24/2021,04/29/2021,03/04/2021,07/04/2015zoster (RZV) vaccine, recombinant (SHINGRIX)03/03/2022,07/31/2021zoster (ZVL) vaccine, live (ZOSTAVAX)10/27/2013 Social History Tobacco UseTypesPacks/DayYears UsedDateSmoking Tobacco: PfmokbRildvfbcay3Dojy: 1980Smokeless Tobacco: Never Tobacco Cessation:Counseling Given: Not Answered Alcohol UseStandard Drinks/WeekCommentsYes0 (1 standard drink = 0.6 oz pure alcohol)none since 1990 [facility] Deprivation IndexAnswerDate RecordedNational Score (1-100), lower number is lower ntsx188501/07/2023State Score (1-10), lower number is lower ghbr110ata from: https://www.neighborhoodatlas.[facility].edu/. Last address used for xybmdkenpzl[address] [place], [place] [address]/07/2023Sex and Gender InformationValueDate RecordedSex Assigned at BirthNot on fileLegal NleAcwf1712/19/2022 11:18 AM EDT Gender IdentityNot on fileSexual OrientationNot on file Last Filed Vital Signs Vital SignReadingTime TakenCommentsBlood Wyptmusa377/6508/03/2025 12:15 PM EST Dirft319908/03/2025 12:15 PM JBWPutziufxfge26.4 ??C (97.6 ??F)08/03/2025 11:35 AM ESTRespiratory Jryg216210/04/2024 11:45 AM ESTOxygen Bsjijosvqd44%08/03/2025 12:15 PM ESTInhaled Oxygen Concentration--Uhgooz47 kg (216 lb)02/11/2023 12:28 PM EDT Humcht916.3 cm (5' 9 )02/11/2023 12:28 PM EDTBody Mass Index31.9002/11/2023 12:28 PM EDT Plan of Treatment DateTypeDepartmentCare Team (Latest Contact Info)Jcyonycnxru32/12/2026 11:30 AM ESTHospital Encounter [facility] Radiology Procedure [address] [place] [address] Ureteral 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.5]09/28/2025 11:30 AM EST - 09/28/2025 1:00 PM EST Surgery [facility] Radiology Procedure [id number] [facility] [place] [address] NOC TECHNICIAN [address] [place] [address] PERC EXCHANGE NEPHROSTOMY CATH, INCLUDING DIAGNOSTIC NEPHROSTOGRAM/URETEROGRAM WHEN PERFORMED,IMAGING GUIDANCE AND ALL ASSOCIATED RAD S&INamePriorityAssociated DiagnosesDate/TimePERC EXCHANGE NEPHROSTOMY CATH, INCLUDING DIAGNOSTIC NEPHROSTOGRAM/URETEROGRAM WHEN PERFORMED,IMAGING GUIDANCE AND ALL ASSOCIATED RAD S&I Ureteral stricture 09/28/2025 11:30 AM ESTHealth MaintenanceDue DateLast RygdYzyiouphXdI1Q 1950Diabetic Foot Exam1955Dilated Retinal Exam1955Urine Albumin:Creatinine Ratio1955nnual PCP Team Chronic Disease Visit 1963Anxiety Cmrqzjakq52/21/1963Depression Ijqxlvhmn76/21/1963LDL Wcdrawxqsqw37/21/1963Medicare Annual Wellness Visit12/15/2004Pneumococcal Vaccine: 50+ (2 of 2 - PPSV23, PCV20, or PCV21)/03/2021, 04/29/2021, 03/04/2021, Additional history existsAdvance Directive Isizptyhbq01/01/2025 Covid-19 Vaccine ( season), 11/13/2020, 10/23/2020, Additional history existsHemoglobin/Hprncwyvek24/08/202612/03/2025, 07/18/2025, 05/29/2025, Additional history existsSerum Bnozjiwoah69/08/2026 07/24/2025, 01/30/2025, 07/30/2024, Additional history existsDTaP,Tdap,Td Vaccine (4 - Tdap), 04/29/2021, 03/04/2021hingrix Vaccine Xolxqitiz41/18/2022, 07/31/2021, 10/27/2013RSV FjurwmxHyfyddicy03/07/2025 Influenza FzbtagrKsgudbysx13/25/2025, 06/08/2024, 07/28/2023, Additional history exists Goals GoalPatient Goal TypeAssociated ProblemsRecent ProgressPatient-Stated?Author Autogenerated Goal Care PlanAutogenerated ProblemNoKeaton, Bib[employer] ImplantedTypeAreaManufacturerDevice IdentifierShelf Expiration DateModel / Serial / LotStent Inlay [place] 6fr Taper [place] Polymer Phreecoat 26cm Ureteral - [id number] Implanted:Q[facility] StentsRight: UreterBECTON [id number] / / [id number] Procedures Procedure NamePriorityDate/TimeAssociated DiagnosisCommentsIR NEPH TUBE CHANGE BILAT (AV,UN)08/03/2025 11:28 AM EST EXCHANGE NEPHROSTOMY CATHETER PRQ W/IMG GID RS&I110/04/2024 10:26 AM EST Ureteral stricture GLUCOSE, BLOOD (POC)Pwvkzxy1408/03/2025 9:59 AM EST IR NEPH TUBE CHANGE BILAT (AV,UN)06/08/2025 11:31 AM EDT EXCHANGE NEPHROSTOMY CATHETER PRQ W/IMG GID RS&I1 10:20 AM EDT Ureteral stricture GLUCOSE, BLOOD (POC)Baaavek9006/08/2025 10:19 AM EDT CBC + LEQEXEHR67/19/2025 10:59 AM EDT Ureteral stricture COMPREHENSIVE METABOLIC TZSHBJrhlbmd84/10/2023 11:09 AM EDT Acquired ureteral stricture from Last 3 Months or Most Recently Relevant to Health Maintenance Results * IR NEPH TUBE CHANGE BILAT (AV,UN) (08/03/2025 11:28 AM EST)Anatomical Region LateralityModalityOtherSpecimen (Source)Anatomical Location / Laterality Collection Method / VolumeCollection TimeReceived Time08/03/2025 11:28 AM EST Impressions 08/03/2025 12:37 PM EST IMPRESSION: UNEVENTFUL EXCHANGE OF A RIGHT 10 AMHARIC NEPHROSTOMY CATHETER AND A LEFT 10.2 AMHARIC NEPHROSTOMY CATHETER. PLAN: Catheter may be allowed to drain passively into bag until next catheter exchange. Patient may return in 12 weeks for routine exchange. Attestation Signer name: Lisa Alcaraz MD I attest that I was present for the entire procedure. I reviewed the stored images and agree with the report as written. Bird Raiser: PSCB ?? Transcribe Date/Time: Aug 03 2025 12:32P [...] change. PROCEDURE SUMMARY - Target organ: Bilateral muckleshoot kidneys - Antegrade nephrostogram(s) via the existing [...] and procedure-specific equipment needs. Start of procedure: 111 End of procedure: 112 Patient position: ??Prone Preparation: The site was [...] contrast injection. Pre-existing genitourinary catheter: 10 F [employer] nephrostomy Genitourinary catheter(s) placed: 10 F [employer] nephrostomy Findings: Appropriate positioning of the distal pigtail within the renal pelvis External catheter securement: Non-absorbable suture Left genitourinary catheter exchange Local anesthesia was administered. Initial nephrostogram was performed. A wire was placed through the existing tube and it was removed. The new tube was advanced over the wire and position was confirmed with contrast injection. Pre-existing genitourinary catheter: 8 F [employer] nephrostomy Genitourinary catheter(s) placed: 10.2 F [...] performed by the: attending radiologist, without an web assistant. The attending radiologist performed the following procedural activities: Total procedure Procedure Note Provider, [facility] [place] - 08/03/2025 * * *Final Report* * * DATE OF EXAM: Aug 03 2025 11:28AM [facility] 7354 - IR EXCHANGE NEPH TUBE BILAT [...] change. PROCEDURE SUMMARY - Target organ: Bilateral muckleshoot kidneys - Antegrade nephrostogram(s) via the existing [...] contrast injection. Pre-existing genitourinary catheter: 10 F [employer] nephrostomy Genitourinary catheter(s) placed: 10 F [employer] nephrostomy Findings: Appropriate positioning of the distal pigtail within the renal pelvis External catheter securement: Non-absorbable suture Left genitourinary catheter exchange Local anesthesia was administered. Initial nephrostogram was performed. A wire was placed through the existing tube and it was removed. The new tube was advanced over the wire and position was confirmed with contrast injection. Pre-existing genitourinary catheter: 8 F [employer] nephrostomy Genitourinary catheter(s) placed: 10.2 F [employer] Raul French Findings: Appropriate positioning of the [...] performed by the: attending radiologist, without an web assistant. The attending radiologist performed the following procedural activities: Total procedure IMPRESSION IMPRESSION: UNEVENTFUL EXCHANGE OF A RIGHT 10 AMHARIC NEPHROSTOMY CATHETER AND A LEFT 10.2 AMHARIC NEPHROSTOMY CATHETER. PLAN: Catheter may be allowed to drain passively into bag until next catheter exchange. Patient may return in 12 weeks for routine exchange. Attestation Signer name: Lisa Alcaraz MD I attest that I was present for the entire procedure. I reviewed the stored images and agree with the report as written. Bird Raiser: PSCB Transcribe Date/Time: Aug 03 2025 12:32P Dictated by : LISA ALCARAZ MD This examination was interpreted and the report reviewed and electronically signed by: LISA ALCARAZ MD on Aug 03 2025 12:35PM EST Authorizing ProviderResult TypeResult StatusHans Marylu RICKSVASCULAR IMAGING REGIONALFinal Result * (ABNORMAL) GLUCOSE, BLOOD (POC) (08/03/2025 9:59 AM EST) Only the most recent of2 resultswithin the time period is included. ComponentValueRef RangeTest MethodAnalysis TimePerformed AtPathologist Signature Glucose, Point of Ppfi455(A)74 - 99 mg/dLLogan Regional HospitalComment: Location:[facility], [address] [facility], [place], [address] The Accu-Chek Inform II glucose meter has [...] 9:59 AM EST Narrative Authorizing ProviderResult TypeResult Status[facility] TESTINGFinal ResultPerforming OrganizationAddressCity/State/ZIP CodePhone Number [facility] OF CARE [facility] [address] [place], [place] * IR NEPH TUBE CHANGE BILAT (AV,UN) (06/08/2025 11:31 AM EDT)Anatomical Region LateralityModalityOtherSpecimen (Source)Anatomical Location / Laterality Collection Method / VolumeCollection TimeReceived Time06/08/2025 11:31 AM EDT Impressions 06/25/2025 9:59 PM EST IMPRESSION: UNEVENTFUL EXCHANGE OF GENITOURINARY CATHETER(S) PLAN: Catheter may be allowed to drain passively into bag until next catheter exchange. Patient may return in 10-12 weeks for routine exchange. Attestation Signer name: Jose Jackson III, MD I attest that I was present for the entire procedure. I reviewed the stored images and agree with the report as written. Bird Raiser: PSCB ?? Transcribe Date/Time: Jun ??2024 ??9:49P Dictated by : JOSE JACKSON III, MD This examination was interpreted and the report reviewed and electronically signed by: JOSE JACKSON III, MD on Jun ??2024 ??9:57PM ??EST Narrative 06/25/2025 9:59 PM EST * * *Final Report* * * DATE OF EXAM: Jun 08 2025 11:31AM ?? [facility] ?? [id number] ??- ??IR EXCHANGE NEPH TUBE BILAT ??/ PROCEDURE REASON: hydro ? * * * * Physician Interpretation * * * * PROCEDURE: GENITOURINARY CATHETER EXCHANGE - BILATERAL Procedural Personnel Attending physician(s): Jose Jackson III, M.D. Fellow physician(s): None Resident physician(s): None Advanced practice provider(s): None Medical Student(s): None Pre-procedure diagnosis: Bladder dysfunction Post-procedure diagnosis: Same Indication: Routine scheduled exchange Additional clinical history: 80-year-old male with potential bladder dysfunction. ??Patient had bilateral nephrostomy placed earlier for diversion. ??Patient is here for routine catheter exchange. ??Of note, the patient's last exchange was 04/13/2025, and currently presents for routine scheduled catheter exchange. ??The patient reports no catheter related complaints in the interim. PROCEDURE SUMMARY - Target organ: Bilateral muckleshoot kidneys - Antegrade nephrostogram(s) via the existing [...] and procedure-specific equipment needs. Start of procedure: 1107 End of procedure: 1119 Patient position: ??Prone Preparation: The site was prepared and draped using all elements of maximal sterile barrier technique including sterile gloves, sterile gown, cap, mask, large sterile sheet, hand hygiene and cutaneous antisepsis. Antibiotics: Zosyn Antibiotic infusion start time: 1035 Prophylactic antibiotic administered: Within 1 hour of procedure start time or 2 hours for vancomycin or fluoroquinolones Additional med: ??None Additional med: ??None Contrast Contrast agent: OMNIPAQUE 300 Contrast volume (mL): 15 Image Guidance: ??Fluoroscopic guidance. Radiation Dose FLUOROSCOPIC RADIATION SUMMARY: Plane A, Air Kerma: ??18.7 mGy Dose Area Product (DAP): ?? 143.11 Fluoro Time: ??3:54 min:sec Radiation dose exceed 5 Gy: No If radiation dose exceeded 5 Gy, was counseling and instructional brochure provided: ??N/A Anesthesia/sedation Level of anesthesia/sedation: Moderate sedation (conscious [...] contrast injection. Pre-existing genitourinary catheter: 10 F [employer] nephrostomy Genitourinary catheter(s) placed: 10 F [employer] nephrostomy Findings: No significant hydroureteronephrosis was identified. ??The catheter was exchanged without incident. External catheter securement: Non-absorbable suture Left genitourinary catheter exchange Local anesthesia was administered. Initial nephrostogram was performed. A wire was placed through the existing tube and it was removed. The new tube was advanced over the wire and position was confirmed with contrast injection. Pre-existing genitourinary catheter: 10.2 F [employer] French Genitourinary catheter(s) placed: 10.2 F [employer] French Findings: No significant hydroureteronephrosis was identified. ??The catheter was exchanged without incident. External catheter securement: Non-absorbable suture Additional genitourinary [...] performed by the: attending radiologist, without an web assistant. The attending radiologist performed the following procedural activities: Entire procedure Procedure Note Provider, [facility] - 06/25/2025 * * *Final Report* * * DATE OF EXAM: Jun 08 2025 11:31AM [facility] 7354 - IR EXCHANGE NEPH TUBE BILAT / PROCEDURE REASON: hydro * * * * Physician Interpretation * * * * PROCEDURE: GENITOURINARY CATHETER EXCHANGE - BILATERAL Procedural Personnel Attending physician(s): Jose Jackson III, M.D. Fellow physician(s): None Resident physician(s): None Advanced practice provider(s): None Medical Student(s): None Pre-procedure diagnosis: Bladder dysfunction Post-procedure diagnosis: Same Indication: Routine scheduled exchange Additional clinical history: 80-year-old male with potential bladder dysfunction. Patient had bilateral nephrostomy placed earlier for diversion. Patient is here for routine catheter exchange. Of note, the patient's last exchange was 04/13/2025, and currently presents for routine scheduled catheter exchange. The patient reports no catheter related complaints in the interim. PROCEDURE SUMMARY - Target organ: Bilateral muckleshoot kidneys - Antegrade nephrostogram(s) via the existing [...] and procedure-specific equipment needs. Start of procedure: 1107 End of procedure: 1119 Patient position: Prone Preparation: The site was prepared and draped using all elements of maximal sterile barrier technique including sterile gloves, sterile gown, cap, mask, large sterile sheet, hand hygiene and cutaneous antisepsis. Antibiotics: Zosyn Antibiotic infusion start time: 1035 Prophylactic antibiotic administered: Within 1 hour of procedure start time or 2 hours for vancomycin or fluoroquinolones Additional med: None Additional med: None Contrast Contrast agent: OMNIPAQUE 300 Contrast volume (mL): 15 Image Guidance: Fluoroscopic guidance. Radiation Dose FLUOROSCOPIC RADIATION SUMMARY: Plane A, Air Kerma: 18.7 mGy Dose Area Product (DAP): 143.11 Fluoro Time: 3:54 min:sec Radiation dose exceed 5 Gy: No [...] contrast injection. Pre-existing genitourinary catheter: 10 F [employer] nephrostomy Genitourinary catheter(s) placed: 10 F [employer] nephrostomy Findings: No significant hydroureteronephrosis was identified. The catheter was exchanged without incident. External catheter securement: Non-absorbable suture Left genitourinary catheter exchange Local anesthesia was administered. Initial nephrostogram was performed. A wire was placed through the existing tube and it was removed. The new tube was advanced over the wire and position was confirmed with contrast injection. Pre-existing genitourinary catheter: 10.2 F [employer] French Genitourinary catheter(s) placed: 10.2 F [employer] French Findings: No significant hydroureteronephrosis was identified. The catheter was exchanged without incident. External catheter securement: Non-absorbable suture Additional genitourinary [...] performed by the: attending radiologist, without an web assistant. The attending radiologist performed the following procedural activities: Entire procedure IMPRESSION IMPRESSION: UNEVENTFUL EXCHANGE OF GENITOURINARY CATHETER(S) PLAN: Catheter may be allowed to drain passively into bag until next catheter exchange. Patient may return in 10-12 weeks for routine exchange. Attestation Signer name: Jose Jackson III, MD I attest that I was present for the entire procedure. I reviewed the stored images and agree with the report as written. Bird Raiser: PSCB Transcribe Date/Time: Jun 25 2025 9:49P Dictated by : JOSE JACKSON III, MD This examination was interpreted and the report reviewed and electronically signed by: JOSE JACKSON III, MD on Jun 25 2025 9:57PM EST Authorizing ProviderResult TypeResult StatusCharestela Jackson MDVASCULAR IMAGING REGIONALFinal Result from Last 3 Months Additional Health Concerns Active ProblemsNoted DateDiagnosed DateAutogenerated Hvmpcwa2708/11/2025 Insurance [address] [place] [address] Care Teams Team MemberRelationshipSpecialtyStart DateEnd Date Shukri Heath MD [address] [place] [address] PCP - GeneralFamily Medicine02/11/23
--- OUTSIDE RECORDS SUMMARY | 2025-08-14 07:46 | XMS_ITS | CCD ---
Author Organization [facility] Care Team Providers Care Yarn Rewinder Name Role Phone HELEN OCHOA Primary Care Physician Price Crain Unavailable MD Helen Ochoa Attending Provider [phone] NO FAMILY, PHYSICIAN Primary Care Provider Unava ilable MD Helen Ochoa Primary Care Provider MD Brook Huddleston Attending Provider [phone] MD Price Crain Attending Provider MD Helen Ochoa Primary Care Provider MD Brook Huddleston Attending Provider [phone] MD Helen Ochoa Primary Care Provider MD Price Crain Attending Provider MD Brook Huddleston Attending Provider MD Helen Ochoa Primary Care Provider [phone] MD Helen Ochoa Primary Care Provider [phone] MD Brook Huddleston Attending Provider MD Helen Ochoa Primary Care Provider MD Brook Huddleston Attending Provider MD Orquidea Issa Attending Provider MD Price Crain Referring Provider [phone] MD Helen Ochoa Primary Care Provider MD Brook Huddleston Attending Provider MD Brook Huddleston Attending Provider MD Helen Ochoa Primary Care Provider MD Orquidea Issa Attending Provider MD Price Crain Referring Provider MD Helen Ochoa Other Provider [phone] MD Brook Huddleston Attending Provider MD Helen Ochoa Attending Provider Don, Dr. Helen Perez [facility] MD QUIQUE Mosley Admitting Unavailable NICKI, MD LEI Attending Unavailable Don, Dr. Cervantes Chris [facility] MD QUIQUE Mosley Admitting Unavailable NICKI, MD LEI Attending Unavailable Don, Dr. Helen Perez [facility] BROOK Escamilla Attending Unavailable Don, Dr. Cervantes Chris [facility] BROOK Escamilla Attending Unavailable Don, Dr. Helen Perez [facility] Ramesh Lyman Attending Unavailable Ramesh Green Referring Unavailable Don, Dr. Helen Perez [facility] MD QUIQUE Mosley Admitting Unavailable MD QUIQUE HALL Attending Unavailable WILFREDO VANESSA Attending Unavailabl e Don, Dr. Helen Perez [facility] MD Brook Escamilla Attending Provider [phone] MD Brook Huddleston Attending Provider MD Brook Huddleston Attending Provider [phone] LUE, ORQUIDEA M Admitting Unavailable DR HELEN OCHOA Primary [facility] Unavailable LUE, ORQUIDEA M Attending Unavailable Chad Pena Consulting Unavailable LUE, ORQUIDEA M Consulting Unavailable VANDANA Cartwright, DR PATSY Payne Admitting Unavaila daisy OCHOA, DR CERVANTES Primary Care Unavailable VANDANA Cartwright, DR PATSY Payne Attending Unavaila daisy Cartwright, DR PATSY Payne Consulting Unavaila ble KATINA PATEL Consulting Unavailable DON, DR CERVANTES Consulting Unavailable AMANDA, KATINA Consulting Unavailable RALPHE, ORQUIDEA M Attending Unavailable DR HELEN OCHOA Primary Care Unavailable LUE, ORQUIDEA M Admitting Unavailable LUE, ORQUIDEA M Consulting Unavailable DON, DR CERVANTES Primary Care Unavailable LUE, ORQUIDEA M Consulting Unavailable LUE, ORQUIDEA M Attending Unavailable LUE, ORQUIDEA M Admitting Unavailable LUE, ORQUIDEA M Admitting Unavailable LUE, ORQUIDEA M Consulting Unavailable DR HELEN OCHOA Primary Care Unavailable LUE, ORQUIDEA M Attending [...] Unavaila ble LUE, ORQUIDEA M Admitting Unavailable OCHOA, DR CERVANTES Primary Care Unavailable LUE, ORQUIDEA M Attending Unavailable YOMAIRA, DR CHAD Lawson Consulting Unavailable PATEL, KATINA Consulting Unavailable LUE, ORQUIDEA M Consulting Unavailable DON, DR CERVANTES Primary Care Unavailable LUE, ORQUIDEA M Consulting Unavailable LUE, ORQUIDEA M Attending Unavailable LUE, ORQUIDEA M Admitting Unavailable SAM, LENNOX Consulting Unavailable LUE, ORQUIDEA M Admitting Unavailable LUE, ORQUIDEA M Consulting Unavailable DR HELEN OCHOA Primary Care Unavailable LUE, ORQUIDEA M Attending Unavailable SOLO, GAIL Consulting Unavailable GEMBUS, LENNOX Consulting Unavailable DR HELEN OCHOA Primary Care Unavailable DC, GINNY Consulting Unavailable DC, GINNY Attending Unavailable DC, GINNY Admitting Unavailable MD Brook Huddleston Attending Provider [phone] Unavailable Primary Care Provider UnavailHelen Lee MD Chris Primary Care Provider MD Helen Ochoa Primary Care Provider [phone] MD Helen Ochoa Attending Provider [phone] MD Orquidea Issa Attending Provider [phone] MD Price Crain Attending Provider MD Brook Huddleston Attending Provider [phone] MD Helen Ochoa Primary Care Provider [phone] MD Helen Ochoa Attending Provider MD Brook Huddleston Attending Provider MD Orquidea Issa Attending Provider MD Helen Ochoa Primary Care Provider MD Helen Ochoa Primary Care Provider [phone] MD Orquidea Issa Attending Provider [phone] MD Price Crain Attending Provider MD Brook Huddleston Attending Provider Unavailable Primary Care Provider Unavailabl e MD Helen Ochoa Primary Care Provider MD Orquidea Issa Attending Provider MD Brook Huddleston Attending Provider [phone] MD Helen Ochoa Primary Care Provider MD Price Crain Attending Provider MD Brook Huddleston Attending Provider [phone] MD Helen Ochoa Attending Provider Orquidea Issa Attending Unavailable Makayla Damian Attending Unavailable Makayla Damian Admitting Unavailable MD Brook Huddleston Attending Provider MD Ramesh Seals Emergency Provider DO Clarence Miller Admit Provider DO Clarence Miller Attending Provider [phone] MD Price Crain Other Provider MD Delmar Wilburn Other Provider MD Helen Ochoa Primary Care Provider Orquidea Issa Attending Unavailable Orquidea Issa Attending Unavailable Santi SCHWARTZ Attending Unavailable Orquidea Issa Attending Unavailable Santi SCHWARTZ Admitting Unavailable Santi SCHWARTZ Attending Unavailable Orquidea Issa Attending Unavailable rOquidea Issa Admitting Unavailable Orquidea Issa Attending Unavailable Orquidea Issa MChay Admitting Unavailable Lue, Orquidea M. Attending [...] Lue, Orquidea M. Attending Unavailable MD Helen Ochoa Primary Care Provider MD Brook Huddleston Attending Provider MD Orquidea Issa Attending Provider MD Helen Ochoa Other Provider MD Price Crain Attending Provider MD Brook Huddleston Attending Provider MD Brook Huddleston Attending Provider Orzech, Makayla X Attending Unavailable Orzech, Makayla X Admitting Unavailable Orzech, Makayla X Attending Unavailable MD Helen Ochoa Primary Care Provider MD Orquidea Issa Attending Provider MD Brook Huddleston Attending Provider KENNETH Smith Emergency Provider [phone] MD Mayda Matthews Admit Provider MD Mayda Matthews Attending Provider MD Domonique Rahman Other Provider MD Orquidea Issa Other Provider Orquidea Issa Attending Unavailable Lue, Orquidea M. Attending Unavailable Orzech, Makayla X Attending Unavailable Orzech, Makayla X Attending Unavailable Orzech, Makayla X Admitting Unavailable Orzech, Makayla X Attending Unavailable Delmar Wilburn Referring Unavailable Delmar Wilburn Attending Unavailable Orquidea Issa Attending Unavailable MD Domonique Rahman Attending Provider Helen Ochoa MD Primary Care Provider Orquidea Issa MD Attending Provider [phone] Dong Smith PA-C Emergency Provider Byron RICKS, Mayda Marrero Admit Provider Mayda Matthews MD Attending Provider Domonique Rahman MD Other Provider Orquidea Issa MD Other Provider Josiah RICKS, Domonique Attending Provider [phone] Price Crain MD Attending Provider Brook Huddleston MD Attending Provider FRANKLYN MANLEY Referring Unavailable ZENZ, YOANTHAN Referring Unavailable FAWWAD, PHELAN Referring Unavailable STEW, CRIS Admitting Unavailable ALI, DEAL FLORI Attending Unavailable RATNAM, MARVIN Referring Unavailable EKWENNA, OBI Referring Unavailable Orzech, Makayla X Attending Unavailable Orzech, Makayla X Attending Unavailable Orzech, Makayla X Attending Unavailable Orzech, Makayla X Admitting Unavailable Orquidea Issa MChay Attending Unavailable Orquidea Issa MChay Referring Unavailable Orzech, Makayla X Attending Unavailable Orquidea Issa MChay Attending Unavailable KENNETH HELTON Attending Unavailab le Orquidea Issa Attending Unavailable Orzech, Makayla X Attending Unavailable Orquidea Issa MChay Attending Unavailable Orzech, Makayla X Attending Unavailable Orquidea Issa MChay Attending Unavailable Orzech, Makayla X Attending Unavailable Orzech, Makayla X Attending Unavailable Helen Ochoa MD Primary Care Provider Price Crain MD Attending Provider Brook Huddleston MD Attending Provider Brook Huddleston MD Attending Provider Helen Ochoa MD Primary Care Provider [phone] Price Crain MD Attending Provider Brook Huddleston MD Attending Provider Orquidea Issa MD Attending Provider Brook Huddleston MD Attending Provider Helen Ochoa MD Attending Provider Orzech Makayla X Attending Unavailable Orzech, Makayla X Attending Unavailable Orzech, Makayla X Admitting Unavailable Lue, Orquidea MChay Attending Unavailable Santi SCHWARTZ Attending Unavailable Orzech, Makayla X Admitting Unavailable Orzech, Makayla X Attending Unavailable Orquidea Issa Attending Unavailable Shadia, Pratima Attending Unavailable Shadia, Pratima Attending Unavailable Brook Huddleston MD Attending Provider [phone] Helen Ochoa MD Primary Care Provider [phone] Price Crain MD Attending Provider ShadiaPratima rodriguez Attending Unavailable Shadia, Pratima Admitting Unavailable Shadia, Pratima Attending Unavailable Helen Ochoa MD Primary Care Provider Helen Ochoa MD Attending Provider Orquidea Issa MD Attending Provider [phone] Price Crain MD Attending Provider Brook Huddleston MD Attending Provider Shadia Pratima Attending Unavailable Shadia, Pratima Attending Unavailable Shadia, Pratima Attending Unavailable Shadia, Pratima Admitting Unavailable Helen Ochoa MD Primary Care Provider Shadia, Pratima Admitting [...] Referring Unavailable TEAGAN COTTON Referring Unavailable HELEN OCHOA NEWFANE Primary Care Unavailabl heena Ochoa MD, Helen Primary Care Provider [phone] Brook Huddleston MD Attending Provider Taweel PAToby, Helwa N Attending Provider Orquidea Issa MD Other Provider Don RICKS, Helen Primary Care Provider Tamere COLLADOC, Helwa N Attending Provider Orquidea Issa MD Other Provider Price Crain MD Attending Provider Lue, Orquidea M. Attending Unavailable Lue, Orquidea M. Attending Unavailable Pratima Reno Attending Unavailable Lue, Orquidea M. Attending Unavailable Lue, Orquidea M. Admitting Unavailable Lue, Orquidea M. Attending Unavailable Lue, Orquidea M. Referring Unavailable Ochoa, Helen Primary Care Unavailable Taweel, Helwa N Admitting Unavailable Taweel, Helwa N Attending Unavailable Lue, Orquidea M Consulting Unavailable Josiah, Domonique Admitting Unavailable Josiah, Domonique Attending Unavailable Ochoa, Helen Primary Care Unavailable Bakhous, Aziz Admitting Unavailable Bakhous, Aziz Attending Unavailable Ochoa, Helen Primary Care Unavailable Bakhous, Aziz Admitting Unavailable Bakhous, Aziz Attending Unavailable Ochoa, Helen Primary Care Unavailable Ochoa, Helen Admitting Unavailable Ochoa, Helen Primary Care Unavailable Ochoa, Helen Attending Unavailable Ochoa, Helen Primary Care Unavailable Lue, Orquidea M Admitting Unavailable Lue, Orquidea M Attending Unavailable Lue, Orquidea M Admitting Unavailable Lue, Orquidea M Attending Unavailable Lue, Orquidea M Admitting Unavailable Lue, Orquidea M Attending Unavailable Bakhous, Aziz Admitting Unavailable Ochoa, Helen Primary Care Unavailable Bakhous, Aziz Attending Unavailable Brook Huddleston Admitting Unavailable Brook Huddleston Attending Unavailable Ochoa, Helen Primary Care Unavailable Lue, Orquidea M. Attending Unavailable Lue, Orquidea M. Attending Unavailable Lue, Orquidea M. Referring Unavailable Lue, Orquidea M. Admitting Unavailable Orquidea Issa Attending Unavailable PROVIDER, UNKNOWN Admitting Unavailable PROVIDER, UNKNOWN Attending Unavailable HELEN OCHOA Primary Care Unavailabl e GADANI, MANSOOR Admitting Unavailable GADANI, MANSOOR Attending Unavailable HELEN OCHOA Primary Care Unavailabl e PROVIDER, UNKNOWN Admitting Unavailable PROVIDER, UNKNOWN Attending Unavailable HELEN OCHOA Primary Care Unavailabl e Allergies Allergy ClassificationReported Allergen(s)Allergy TypeDate of OnsetReaction(s) FacilityAnti-Epileptic Agents (2 sources)gabapentin; Translations: [gabapentin]Drug Knrtavp87-39-8966Qeuobhe, RashExecutive [facility]rology of [facility]abegron (2 sources)mirabegron; Translations: [mirabegron]Drug AllergyMultiple open mouth wounds (disorder)[facility] (20 sources)gabapentin; Translations: [gabapentin]Drug Koxbgdl97-87-5521wqvp, UnknownHol[facility] ([facility] sources)mirabegron; Translations: [MIRABEGRON]Drug Eqlwkol99-43-9179 Diarrhea, GI UpsetHolzer Medical Center [facility] (20 sources)mirabegron; Translations: [mirabegron]Drug AllergyMultiple open mouth wounds (disorder)[facility] (20 sources)Lisinopril; Translations: [Lisinopril]Drug Qlgwyna56-35-9305GFA COUGH, Unknown, CoughHolzer Medical Center [facility] (15 sources)No Known Medication Allergies; Translations: [No Known Medication Allergies]Propensity to adverse reactions (disorder)[facility] (1 source)ALLERGIES NOT ON FILE; Translations: [ALLERGIES NOT ON FILE]Propensity to adverse reactions (disorder)[facility] (7 sources)Latex; Translations: [Latex]Allergy to ogusrejvp19-11-8731Bduxccxo of skin (disorder)[facility] (1 source)ADHESIVE TAPE-SILICONES; Translations: [ADHESIVE TAPE-SILICONES] Propensity to adverse reactions to drug (disorder)39-36-1942[facility] [place] [facility] Medications Current Medications MedicationDrug Class(es)DatesSig (Normalized)Sig (Original)acetaminophen 500 mg oral tablet (20 sources)Start: 81-92-1712cehw 1 tablet by mouth every four hours as needed for painacetaminophen 500 mg Tab 500 mg = 1 tab(s), Oral, q4hr, PRN for pain Start Date: 03/03/25 Status: Ordered Medication Dispense Status: Completed Total Allowed Fills: 1 Fills Dispensed: 0Start: 24-50-8291Fugbk: 01-20-2024 End: 98-74-2611Vrdpa: 04-27-2020 End: 37-16-9502gggupojikcvoz 325 mg / HYDROcodone bitartrate 5 mg oral tablet (5 sources)Opioid AgonistStart: 07-35-3042Oeswx 325 mg-5 mg oral tablet 1 tab(s), Oral, As Directed, 1 tab(s), Refill(s) 0, Take 1 hour priorto procedure, [facility] #72, 180, cm, 04/18/22 13:52:00 EDT, Height/Length Dosing, 110, kg, 04/18/22 13:52:00 EDT, Weight Dosing Start Date: 04/18/22 Status: Orderedacetaminophen 325 mg / traMADol hydrochloride 37.5 mg oral tablet (5 sources)Opioid AgonistStart: 94-26-9104jwer 1 tablet by mouth every six hours Ultracet 325 mg-37.5 mg Tab 1 tab(s), Oral, q6hr severe pain, 12 tab(s), Refill(s) 0, [facility] #72, 180, cm, 04/18/22 13:52:00 EDT, Height/Length Dosing, 110, kg, 04/18/22 13:52:00 EDT,Weight Dosing Start Date: 04/18/22 Status: Orderedaspirin 81 mg delayed release oral tablet (20 sources)Platelet Aggregation Inhibitor, Nonsteroidal Anti-inflammatory Drug Start: 70-55-7267asyq 1 tablet by mouth once dailyaspirin 81 mg Oral EC Tab 81 mg = 1 tab(s), Oral, Daily Start Date: 03/03/25 Status: Ordered Medication Dispense Status: Completed Total Allowed Fills: 1 Fills Dispensed: 0Start: 60-70-6910iezunuu 81 mg chewable tablet mg tab(s), Chewed, Daily, Refills(s) 0 11/13/2020 ActiveStart: 04-27-2020 End: 81-97-9137crcq 1 tablet by mouth once dailyAspirin 81 81 MG 1 tablet Orally Once a day ActiveComment on above: mg tab(s), Chewed, Daily, Refills(s) 0atorvastatin 20 mg oral tablet (20 sources)HMG-CoA Reductase InhibitorStart: 61-95-8925fryp 1 tablet by mouth once dailyatorvastatin 20 mg Tab 20 mg = 1 tab(s), Oral, Daily, Refills(s) 0 Start Date: 11/13/20 Status: Ordered Medication Dispense Status: Completed Total Allowed Fills: 1 Fills Dispensed: 0Comment on above:Take by mouth.cephalexin 500 mg oral capsule (20 sources)Cephalosporin AntibacterialStart: 04-19-2024 End: 52-71-0341hmff 1 capsule by mouth twice dailycephalexin 500 mg Cap 500 mg = 1 cap(s), Oral, BID, X 7 day(s), # 14 cap(s), Refills(s) 0, Pharmacy: [facility] #72, 171, cm, 01/28/24 10:39:00 EDT, Height/Length Dosing, 94, kg, 01/27/2410:39:00 EDT, Weight Dosing Start Date: 04/19/24 Stop Date: 04/26/24 Status: OrderedStart: 02-25-2023 End: 52-33-4859ezxy 1 capsule by mouth three times dailycephALEXin (KEFLEX) 500 mg capsule Take 1 capsule by mouth three times daily for 7 days. 21 capsule0 02/25/2023 03/04/2023 ActiveStart: 08-20-2021 End: 43-95-0224Tfiqz: 08-20-2021 End: 46-83-7558fdph 1 capsule by mouth every eight hoursCephalexin 500 mg capsule Discontinued 500 MG PO Every 8 hours 30 August 20, 2021 1:00am October 03, 2021 2:10pmComment on above:Take 1 capsule by mouth three times daily for 7 days.cholecalciferol 0.05 mg oral capsule (20 sources)Vitamin DStart: 10-15-2020 End: 84-68-9854Dtvryvj on above:Take by mouth.ciprofloxacin 500 mg oral tablet (12 sources)Quinolone AntimicrobialStart: 40-61-9150Jbwat: 76-91-2593amwi 1 tablet by mouth every twelve hoursCipro 500 mg Tab 500 mg = 1 tab(s), Oral, q12hr, # 14 tab(s), Refills(s) 0, Pharmacy: [facility] #72, 173, cm, 04/25/25 14:05:00 EDT, Height/Length Dosing, 95.2, kg, 04/25/25 14:05:00 EDT, Weight Dosing Start Date: 04/25/25 Status: Ordered Quantity: 14.0 Unit: tab(s) Repeat number: 1Start: 11-06-2024 End: 03-83-3048aasf 1 tablet by mouth every twelve hoursCipro 500 mg Tab 500 mg = 1 tab(s), Oral, q12hr, X 3 day(s), # 6 tab(s), Refills(s) 0, Pharmacy: [facility] #72, 171, cm, 08/31/24 11:19:00 EST, Height/Length Dosing, 94, kg, 08/31/24 11:19:00 EST, Weight Dosing Start Date: 11/06/24 Stop Date: 11/09/24 Status: Ordered Quantity: 6.0 Unit: tab(s) Repeat number: 1Start: 09-08-2024 End: 71-33-8888qgsq 1 tablet by mouth every twelve hoursCipro 500 mg Tab 500 mg = 1 tab(s), Oral, q12hr, X 5 day(s), # 10 tab(s), Refills(s) 0, Pharmacy: [facility] #[facility], 171, cm, 08/31/24 11:19:00 EST, Height/Length Dosing, 94, kg, 08/31/24 11:19:00 EST, Weight Dosing Start Date: 09/08/24 Stop Date: 09/13/24 Status: OrderedStart: 08-16-2024 End: 38-13-7352xegb 1 tablet by mouth every twelve hoursCipro 500 mg Tab 500 mg = 1 tab(s), Oral, q12hr, X 5 day(s), # 10 tab(s), Refills(s) 0, Pharmacy: [facility] #[facility], 171, cm, 08/09/24 11:31:00 EST, Height/Length Dosing, 94, kg, 08/09/24 11:31:00 EST, Weight Dosing Start Date: 08/16/24 Stop Date: 08/21/24 Status: OrderedStart: 21-00-0735ersf 1 tablet by mouth every twelve hours Cipro 500 mg Tab 500 mg = 1 tab(s), Oral, q12hr, Start taking day prior to scheduled UroLift, # 6 tab(s), Refills(s) 0, Pharmacy: [facility] #72, 180, cm, 04/18/22 13:52:00 EDT, Height/Length Dosing, 110, kg, 04/18/22 13:52:00 EDT, Weight Dosing Start Date: 04/25/22 Status: OrderedStart: 04-18-2022 End: 72-82-6918xcli 1 tablet by mouth twice dailyCipro 500 mg Tab 500 mg = 1 tab(s), Oral, BID, Start day before, X 3 day(s), # 6 tab(s), Refills(s)0, Pharmacy: [facility] #72, 180, cm, 04/18/22 13:52:00 EDT, Height/Length Dosing, 110,kg, 04/18/22 13:52:00 EDT, Weight Dosing Start Date: 04/18/22 Stop Date: 04/21/22 Status: OrderedCranberry preparation (20 sources)Non-Standardized Food Allergenic Extract, Non-Standardized Plant Allergenic ExtractStart: 37-29-9552rxwj 1 dose by mouth once dailyCranberry Oral, Daily Start Date: 11/17/24 Status: Ordered Medication Dispense Status: Completed Total Allowed Fills: 1 Fills Dispensed: 0Start: 42-32-5651Pvjenacbt Oral, Daily Start Date: 11/17/24 Status: Ordered Repeat number: 1Start: 11-17-2024 Cranberry Start Date: 11/17/24 Status: Ordered Repeat number: 1Start: 10-04-2024 take 1 capsule by mouth twice daily at mealtimeStart: 10-27-7151Vqioj: 88-43-5041kxsq 1 capsule by mouth twice daily at mealtimeCranberry 500 mg capsule Active 500 MG PO Twice daily October 04, 2024 1:00am administer with mealsStart: 27-42-5607xcbr 1 capsule by mouth twice daily at mealtimeCranberry 500 mg capsule Active 500 MG PO Twice daily October 04, 2024 12:00am administer with mealsD-mannose (11 sources)Start: 01-60-8878L-mannose D-mannose Start Date: 11/17/24 Status: Ordered Medication Dispense Status: Completed Total Allowed Fills: 1 Fills Dispensed: 0Start: 74-41-8608B-mannose D-mannose Start Date: 11/17/24 Status: Ordered Repeat number: 1Aranesp (20 sources)Erythropoiesis-stimulating AgentStart: 55-46-7314Fkagpgr SubCutaneous, q4wk Start Date: 03/03/25 Status: Ordered Medication Dispense Status: Completed Total Allowed Fills: 1 Fills Dispensed: 0Start: 03-03-2025 Aranesp SubCutaneous, q4wk Start Date: 03/03/25 Status: Ordered Repeat number: 1 Start: 06-02-2024 End: 81-46-7201Mcxqg: 06-02-2024 End: 81-46-6052Jqqmuecdgrf Raymond In Polysorbat (Aranesp (In Polysorbate)) 10 mcg/0.4 mL syringe Discontinued 10 MCGIV .every other week as needed for Hemoglobin less than 10 June 02, 2024 12:00am January 03, 2025 2:48pmStart: 10-26-2023 End: 38-86-2409Hmjqm: 03-10-2020 End: 59-28-6403Snwzm: 03-10-2020 End: 96-97-0388cwaf 1 [IU] intravenously every weekDarbepoetin Raymond In Polysorbat (Aranesp (In Polysorbate)) 40 mcg/mL Solution Discontinued 40 MCG IV- PUSH Q7D@1000 0 March 10, 2020 12:00am April 27, 2020 4:13pm This will be given at the dialysis unit.Aranesp (Albumin Free) 10 MCG/0.4ML as directed Injection every other week ActivediazePAM 10 mg oral tablet (5 sources)BenzodiazepineStart: 56-68-3278Pdnpxo 10 mg Tab 10 mg = 1 tab(s), Oral, As Directed, Take 1/2 hour prior to procedure, # 1 tab(s),Refills(s) 0, Pharmacy: [facility] #72, 180, cm, 04/18/22 13:52:00 EDT, Height/Length Dosing, 110, kg, 04/18/22 13:52:00 EDT, Weight Dosing Start Date: 04/18/22 Status: Ordereddocusate sodium 100 mg oral tablet (20 sources)Start: 03-06-3739sbwz 100 mg by mouth once dailyDulcolax Stool Softener 100 mg, Oral, Daily Start Date: 11/17/24 Status: Ordered Medication Dispense Status: Completed Total Allowed Fills: 1 Fills Dispensed: 0Start: 58-05-0703Yzedwbwf Stool Softener mg, Oral Start Date: 11/17/24 Status: Ordered Repeat number: 1Start: 18-61-1588Xjfcz: 03-10-2020 End: 23-74-5972Cittl: 03-10-2020 End: 27-33-5681wtbr 1 capsule by mouth twice dailyDocusate Sodium (Dok) 100 mg Capsule Discontinued 100 MG PO Twice daily March 10, 2020 12:00am October 15, 2020 11:14amComment on above:Take 100 mg by mouth twice daily as needed for constipation.fluconazole 50 mg oral tablet (3 sources)Azole AntifungalStart: 11-08-2024 End: 74-41-4627zxph 1 tablet by mouth once dailyfluconazole 50 mg oral tablet 50 mg = 1 tab(s), Oral, Daily, X 5 day(s), # 5 tab(s), Refills(s) 0, Pharmacy: [facility] #[facility], 171, cm, 08/31/24 11:19:00 EST, Height/Length Dosing, 94, kg, 08/31/24 11:19:00 EST, Weight Dosing Start Date: 11/08/24 Stop Date: 11/13/24 Status: Ordered Quantity: 5.0 Unit: tab(s) Repeat number: 1Start: 04-08-2022 End: 79-11-4547ilhl 1 tablet by mouth once dailyfluconazole 200 mg Tab 200 mg = 1 tab(s), Oral, Daily, X 14 day(s), # 14 tab(s), Refills(s) 0, Pharmacy: [facility] #[facility], 180, cm, 04/01/22 9:29:00 EDT, Height/Length Dosing, 110, kg, 04/01/22 9:29:00 EDT, Weight Dosing Start Date: 04/08/22 Stop Date: 04/22/22 Status: Orderedfurosemide 20 mg oral tablet (20 sources)Loop DiureticStart: 50-56-7722zebr 1 mg by mouth once daily furosemide 20 mg Tab mg tab(s), Oral, Daily, Refills(s) 0 Start Date: 11/13/20 Status: OrderedStart: 03-10-2020 End: 90-62-1691Bspiw: 03-10-2020 End: 05-61-3472Ipgcfcexjv 40 mg tablet Discontinued 20 MG PO Daily October 15, 2020 11:15am October 03, 2021 2:22pmStart: 03-10-2020 End: 62-28-1047Fkmrvb Iron oral capsule (20 sources)Start: 34-26-3541Oacsdq Iron oral capsule 1 cap(s), Oral, Daily, 30 cap(s), Refill(s) 0 Start Date: 01/28/24 Status: Ordered Medication Dispense Status: Completed Quantity: 30.0 Unit: cap(s) Total Allowed Fills: 1 Fills Dispensed: 0Start: 38-42-4637Qwibci Iron oral capsule 1 cap(s), Oral, Daily, 30 cap(s), Refill(s) 0 Start Date: 01/28/24 Status: Ordered Quantity: 30.0 Unit: cap(s) Repeat number: 1Start: 61-12-2555Wnoqcy Iron oral capsule 1 cap(s), Oral, Daily, 30 cap(s), Refill(s) 0 Start Date: 01/28/24 Status: OrderedhydrALAZINE hydrochloride 25 mg oral tablet (20 sources)Arteriolar VasodilatorStart: 29-75-5038vvxq 1 mg by mouth four times dailyhydrALAZINE 25 mg Tab mg tab(s), Oral, QID, Refills(s) 0 Start Date: 12/10/21 Status: OrderedStart: 03-10-2020 End: 78-24-2303Lxqfq: 03-10-2020 End: 56-43-3457Dkspdweliyp 50 mg tablet Discontinued 25 MG PO Twice daily July 02, 2020 10:01am October 03, 2021 2:22pmStart: 03-10-2020 End: ml insulin glargine 100 unt/ml pen injector (20 sources)Insulin AnalogStart: 74-10-6087MJCEIJ SOLOSTAR U-100 INSULIN 100 unit/mL (3 mL) 01/15/2023 ActiveStart: 23-59-0217rshjro 15 [IU] by subcutaneous injection once daily at bedtimeLantus insulin 15 unit(s), SubCutaneous, Once a day (at bedtime), Refills(s) 0 Start Date: 11/13/20 Status: Ordered Medication Dispense Status: Completed Total Allowed Fills: 1 Fills Dispensed: 0Start: 46-41-3146wcxarm 15 [IU] by subcutaneous injection once daily at bedtimeLantus insulin 15 unit(s), SubCutaneous, Once a day (at bedtime), Refills(s) 0 Start Date: 11/13/20 Status: Ordered Repeat number: 1Start: 17-83-6861zucbyw 25 [IU] by subcutaneous injection once daily at bedtimeLantus insulin 25 unit(s), SubCutaneous, Once a day (at bedtime), Refills(s) 0 Start Date: 11/13/20 Status: Ordered Repeat number: 1Start: 50-74-5534gneuhe 25 [IU] by subcutaneous injection once daily at bedtimeLantus insulin 25 unit(s), SubCutaneous, Once a day (at bedtime), Refills(s) 0 Start Date: 11/13/20 Status: OrderedStart: 77-51-0669Jnunst insulin SubCutaneous, Daily, Refills(s) 0 Start Date: 11/13/20 Status: OrderedStart: 04-27-2020 End: 36-45-8402Chfdo: 04-27-2020 End: 68-85-2238Osqov: 04-27-2020 End: 85-97-1479Zcowaes Glargine (Lantus Solostar U-100 Insulin) 100 unit/mL (3 mL) Insulin Pen Discontinued 25 UNIT SUBCUT Daily April 27, 2020 12:00am October 26, 2023 3:30pm 25 units at bedtimeStart: 04-27-2020 End: 49-57-5881Sgxldpk Glargine (Lantus Solostar U-100 Insulin) 100 unit/mL (3 mL) insulin pen Discontinued 45 UNIT SUBCUT Daily at bedtime October 26, 2023 3:27pm March 08, 2024 1:38pmStart: 04-27-2020 End: 28-90-8505Abnyqxe Glargine (Lantus Solostar U-100 Insulin) 100 unit/mL (3 mL) insulin pen Discontinued 35 UNIT SUBCUT Daily at bedtime March 08, 2024 1:36pm October 04, 2024 4:29pmLantus SoloStar 100 UNIT/ML as directed Subcutaneous 12 UNITS IN QHS ActiveInsulin Lispro (Humalog Kwikpen Insulin) 100 unit/mL insulin pen (20 sources)Start: 36-19-9913rtwnyy 8 [IU] by subcutaneous injection once before mealtimeInsulin Lispro (Humalog Kwikpen Insulin) 100 unit/mL insulin pen Active 8 UNIT SUBCUT 3x/Day beforemeOctober 26, 2023 2:28pm per sliding scale instructionsStart: 35-36-6511trklin 8 [IU] by subcutaneous injection once before mealtimeInsulin Lispro (Humalog Kwikpen Insulin) 100 unit/mL insulin pen Active 8 UNIT SUBCUT 3x/Day beforemeOctober 26, 2023 3:28pm per sliding scale instructionsinsulin lispro (HUMALOG KWIKPEN) 100 unit/mL pen (12 sources)inject 8 [IU] by subcutaneous injection three times daily before mealtimeinsulin lispro (HUMALOG KWIKPEN) 100 unit/mL pen Inject 8 Units subcutaneously three times daily before meals. Plus sliding scale. Activeinject 8 [IU] by subcutaneous injection three times daily before mealtimeinsulin lispro (HUMALOG KWIKPEN) 100 unit/mL pen Inject 8 Units subcutaneously three times daily before meals. Plus sliding scale. 0 ActiveComment on above:Inject 8 Units subcutaneously three times daily before meals. Plus sliding scale.Iron (7 sources)Start: 19-50-3103yuqi iron, 25 mg Start Date: 11/17/24 Status: Ordered Repeat number: 1Iron Bis Glycinat-Vit C-Fa-B12 (Gentle Iron) 28 mg iron-60mg - 400 mcg-8 mcg capsule (20 sources)Start: 07-08-6987jeqz 1 capsule by mouth once daily in the evening Start: 50-04-0401fjsj 1 capsule by mouth once daily in the eveningIron Bis Glycinat-Vit C-Fa-B12 (Gentle Iron) 28 mg iron-60mg -400 mcg-8 mcg capsule Active 1 CAP POEvery evening October 25, 2023 11:00pmStart: 69-33-1152vvet 1 capsule by mouth once daily in the eveningIron Bis Glycinat-Vit C-Fa-B12 (Gentle Iron) 28 mg iron-60mg -400 mcg-8 mcg capsule Active 1 CAP POEvery evening October 26, 2023 12:00amStart: 24-19-0984wqhj 1 capsule by mouth once dailyIron Bis Glycinat-Vit C-Fa-B12 (Gentle Iron) 28 mg iron-60mg -400 mcg-8 mcg capsule Active 1 CAP POdaily October 26, 2023 12:00amStart: 25-65-3655wpov 1 capsule by mouth once dailyIron Bis Glycinat-Vit C-Fa-B12 (Gentle Iron) 28 mg iron-60mg - 400 mcg-8 mcg capsule Active CAP PO daily October 26, 2023 12:00amlactobacillus acidophilus [id number] unt oral capsule (20 sources)Start: 06-02-2024 End: 97-99-5387Htkan: 06-02-2024 End: 60-32-1482kpme 10 capsules by mouth once dailyComment on above:probiotic as directed ActivelevoFLOXacin 500 mg oral tablet (1 source)Quinolone AntimicrobialStart: 07-02-2023 End: 91-71-1227qfsp 1 tablet by mouth every twenty-four hoursLevaquin 500 mg Tab 500 mg = 1 tab(s), Oral, q24hr, X 7 day(s), # 7 tab(s), Refills(s) 0, Pharmacy: [facility], 171, cm, 05/15/23 15:22:00 EDT, Height/Length Dosing, 94, kg, 05/15/23 15:22:00 EDT, Weight Dosing Start Date: 07/02/23 Stop Date: 07/09/23 Status: OrderedLisinopril (20 sources)Angiotensin Converting Enzyme InhibitorStart: 81-41-5498kupbsqtxmj Oral, Daily Start Date: 02/13/23 Status: OrderedStart: 01-22-2023 End: 76-85-9555Kfcnm: 49-19-3670kfgjuhumey (ZESTRIL) 10 mg tablet Take by mouth q 24 HR. 01/14/2023 ActiveStart: 00-46-2726vocm 1 tablet by mouth every twenty- four hoursLisinopril 10 MG 1 tablet Orally Once a day for 30 days December, ActiveComment on above:Take by mouth q 24 HR.mecobalamin 1 mg chewable tablet (19 sources)Start: 98-27-5340ZZU'S MULTI-VITAMIN ORAL (12 sources)MEN'S MULTI-VITAMIN ORAL Multi Vitamin Mens Active ActiveMEN'S MULTI-VITAMIN ORAL Multi Vitamin Mens Active 0 ActiveComment on above:Multi Vitamin Mens Lspsmz14 hr metFORMIN hydrochloride 500 mg extended release oral tablet (20 sources)BiguanideStart: 33-20-9790pfpANWAVS ER (GLUCOPHAGE XR) 500 mg 24 hr tablet 12/23/2022 ActiveStart: 11-26-2020 End: 27-27-0840Citdy: 22-33-4974etcd 1000 mg by mouth twice dailyMetformin Active 1000 MG PO Twice daily November 26, 2020 12:00amStart: 03-04-2020 End: hr mirabegron 50 mg extended release oral tablet (3 sources)beta3-Adrenergic AgonistStart: 06-04-2022 End: 87-74-7824kbcz 1 tablet by mouth once dailymirabegron 50 mg oral tablet, extended release 50 mg = 1 tab(s), Oral, Daily, X 30 day(s), # 30 tab(s), Refills(s) 6, Pharmacy: [facility], 180, cm, 06/04/22 11:02:00 EDT, Height/Length Dosing, 95.5, kg, 06/04/22 11:02:00 EDT, Weight Dosing Start Date: 06/04/22 Stop Date: 12/31/22 Status: OrderedMulti Vitamin Mens (2 sources)Multi Vitamin Mens ActiveOne A Day Men's Complete oral tablet (16 sources)Start: 75-21-9372kcxy 1 tablet by mouth once dailyOne A Day Men's Complete oral tablet Oral, Daily, Refill(s) 0 Start Date: 01/28/24 Status: Jamrwwl40 hr oxybutynin chloride 10 mg extended release oral tablet (20 sources)Cholinergic Muscarinic AntagonistStart: 06-02-2024 End: 15-10-0170Oinsf: 10-26-2023 End: 44-16-6520Ygpha: 72-12-3137ycwz 1 tablet by mouth once dailyoxybutynin 10 mg ER Tab 10 mg = 1 tab(s), Oral, Daily, # 30 tab(s), Refills(s) 0, other reason (Rx)Start Date: 05/15/23 Status: Ordered Medication Dispense Status: Completed Quantity: 30.0 Unit: tab(s) Total Allowed Fills: 1 Fills Dispensed: 0Start: 10-58-3203qeiowlusdn ER (DITROPAN XL) 10 mg 24 hr tablet 12/29/2022 ActiveStart: 08-28-2022 End: 93-18-7583refs 1 tablet by mouth twice dailyoxybutynin 5 mg ER Tab 5 mg = 1 tab(s), Oral, BID, # 180 tab(s), Refills(s) 3, Pharmacy: [facility] 180, cm, 10/16/22 10:34:00 EST, Height/Length Dosing, 95.5, kg, 10/16/22 10:34:00 EST, Weight Dosing Start Date: 10/16/22 Status: OrderedStart: 07-28-2022 End: 28-16-6111Qkhrf: 07-28-2022 End: 66-74-0928Jvstu: 00-51-5738lhvz 2.5 mg by mouth once dailyOxybutynin Chloride Active 2.5 MG PO Daily July 28, 2022 1:00amStart: 89-62-9954jueb 1 tablet by mouth once dailyoxybutynin 5 mg ER Tab 5 mg = 1 tab(s), Oral, Daily, # 30 tab(s), Refills(s) 3, Pharmacy: [facility], 180, cm, 07/04/22 13:18:00 EST, Height/Length Dosing, 95.5, kg, 07/04/22 13:18:00EST, Weight Dosing Start Date: 07/04/22 Status: OrderedStart: 92-59-3648hnom 1 tablet by mouth three times daily as needed for muscle spasmsoxybutynin 5 mg Tab 5 mg = 1 tab(s), Oral, TID, PRN for urinary discomfort, Bladder spasms, # 90 tab(s), Refills(s) 0, Pharmacy: [facility], 180, cm, 05/01/22 14:12:00 EDT, Height/Length Dosing, 110, kg, 05/01/22 14:11:00 EDT, Weight Dosing Start Date: 05/05/22 Status: Orderedpotassium phosphate 155 mg / sodium phosphate, dibasic 852 mg / sodium phosphate, monobasic 130 mg oral tablet (14 sources)Start: 62-00-9316xpzw 1 tablet by mouth every eight hoursPhospha 250 Neutral 155-852-130 MG 1 tablet Orally tid for 30 days December, Active Comment on above:Take 1 tablet by mouth three times daily.probiotic (3 sources)probiotic as directed ActiveProbiotic + Colostrum (20 sources)Start: 47-43-8866oovk 1 dose by mouth once dailyProbiotic + Colostrum Oral, Daily, Refill(s) 0 Start Date: 12/10/21 Status: Ordered Medication Dispense Status: Completed Total Allowed Fills: 1 Fills Dispensed: 0 Start: 09-12-2022Dqdnengdy + Colostrum Oral, Daily, Refill(s) 0 Start Date: 12/10/21 Status: Ordered Repeat number: 1Start: 96-89-0401Efzdtlagr + Colostrum Oral, Daily, Refill(s) 0 Start Date: 12/10/21 Status: Orderedsemaglutide 3 mg oral tablet (3 sources)Start: 97-73-0441Gkaibclq 3 mg oral tablet Refills(s) 0 Start Date: 03/27/25 Status: Ordered Repeat number: 1sulfamethoxazole 800 mg / trimethoprim 160 mg oral tablet (20 sources)Dihydrofolate Reductase Inhibitor Antibacterial, Sulfonamide AntimicrobialStart: 12-11-2023 End: 77-22-7536Ojnmrev D.S. 800 mg-160 mg Tab 1 tab(s), Oral, BID for 10 day(s), 20 tab(s), Refill(s) 0, [facility], 171, cm, 07/22/23 9:22:00 EST, Height/Length Dosing, 94, kg, 07/22/23 9:22:00 EST, Weight Dosing Start Date: 12/11/23 Stop Date: 12/21/23 Status: OrderedStart: 10-15-2020 End: 58-08-2249Asjqb: 10-15-2020 End: 73-21-0200yyob 1 tablet by mouth twice dailySulfamethoxazole-Trimethoprim (Bactrim Ds) 800-160 mg Tablet Discontinued 1 TAB PO Twice daily October 15, 2020 1:00am August 20, 2021 7:14pmtake 1 tablet by mouth once dailyBactrim DS 800- 160 MG 1 tablet Orally THURSDAY, THURSDAY, THURSDAY ONCE A DAY Activetrospium chloride 20 mg oral tablet (1 source)Cholinergic Muscarinic AntagonistStart: 06-15-9177grak 1 tablet by mouth at bedtimetrospium 20 mg oral tablet 20 mg = 1 tab(s), Oral, Bedtime, # 30 tab(s), Refills(s) 11, Pharmacy: [facility], 180, cm, 09/18/22 9:44:00 EST, Height/Length Dosing, 95.5, kg, 09/18/22 9:44:00 EST, Weight Dosing Start Date: 09/18/22 Status: OrderedVitamin B-12 100 mcg oral tablet (20 sources)Start: 09-92-6633hxzx 1 tablet by mouth once dailyVitamin B-12 100 mcg oral tablet 100 mcg = 1 tab(s), Oral, Daily, Refills(s) 0 Start Date: 01/28/24 Status: Ordered Medication Dispense Status: Completed Total Allowed Fills: 1 Fills Dispensed: 0Start: 80-46-7317vbse 1 tablet by mouth once daily Vitamin B-12 100 mcg oral tablet 100 mcg = 1 tab(s), Oral, Daily, Refills(s) 0 Start Date: 01/28/24 Status: Ordered Repeat number: 1Start: 11-90-0019znbj 1 ug by mouth once dailyVitamin B-12 100 mcg oral tablet mcg tab(s), Oral, Daily, Refills(s) 0 Start Date: 01/28/24 Status: Ordered Repeat number: 1Start: 37-76-9280fzgm 1 ug by mouth once dailyVitamin B-12 100 mcg oral tablet mcg tab(s), Oral, Daily, Refills(s) 0 Start Date: 01/28/24 Status: OrderedVitamin D 50 MCG (1999 UT) (3 sources)take 1 capsule by mouth once dailyVitamin D 50 MCG (1999 UT) 1 capsule Orally Once a day ActiveVitamin D3 2000 intl units (20 sources)Start: 38-80-5161pxhf 50 ug by mouth once dailyVitamin D3 2000 intl units 50 mcg, Oral, Daily, Refills(s) 0 Start Date: 11/13/20 Status: Ordered Med ication Dispense Status: Completed Total Allowed Fills: 1 Fills Dispensed: 0 Start: 65-97-3068atrn 50 ug by mouth once dailyVitamin D3 2000 intl units 50 mcg, Oral, Daily, Refills(s) 0 Start Date: 11/13/20 Status: Ordered Repeat number: 1Start: 14-56-3821Jrexsmb D3 2000 intl units Oral, Daily, Refills(s) 0 Start Date: 11/13/20 Status: Ordered Repeat number: 1Start: 38-60-8121Dpfrwsj D3 2000 intl units Oral, Daily, Refills(s) 0 Start Date: 11/13/20 Status: Ordered Start: 14-04-4584Skqxita D3 2000 intl units Refills(s) 0 Start Date: 11/13/20 Status: Ordered (20 sources)Start: 82-04-9374Kqqon: 03-08-2024 End: 33-62-2969Bjcbl: 78-22-4654Haizy: 10-26-2023 End: 75-40-4250Usgtg: 63-96-6613Wpxuk: 10-26-2023 End: 48-74-4378Vqfri: 06-27-2022 End: 97-74-8173Sfxjn: 06-02-2022 End: 73-97-4683Kujug: 05-02-2022 End: 51-68-8821Pqkww: 03-05-2022 End: 57-25-8001Udsxe: 01-07-2022 End: 25-09-5068Lfkiz: 12-11-2021 End: 67-56-9276Oljdz: 11-01-2021 End: 67-15-1068Llhwl: 10-15-2020 End: 27-62-6695Avalc: 07-02-2020 End: 03-79-6679Mlbte: 04-27-2020 End: 10-26-2023 Completed/Discontinued Medications MedicationDrug Class(es)DatesSig (Normalized)Sig (Original)acetaminophen 325 mg / oxyCODONE hydrochloride 5 mg oral tablet (20 sources)Opioid AgonistStart: 05-30-2020 End: 70-15-5526Yvlss: 05-30-2020 End: 46-45-2980leok 1 tablet by mouth every four hours as needed for pain Oxycodone-Acetaminophen (Percocet) 5-325 mg Tablet Discontinued 1 TAB PO Q4H as needed for Pain May 30, 2020 12:00am October 15, 2020 11:40am prescribed through palliativeacyclovir 400 mg oral tablet (20 sources)Herpesvirus Nucleoside Analog DNA Polymerase Inhibitor, Herpes Simplex Virus Nucleoside Analog DNA Polymerase Inhibitor, Herpes Zoster Virus Nucleoside Analog DNA Polymerase InhibitorStart: 10-15-2020 End: 35-52-5229qwYHFNAdwu 5 mg oral tablet (20 sources)Dihydropyridine Calcium Channel BlockerStart: 03-10-2020 End: 81-26-7677hobrhcm acetate 667 mg oral capsule (20 sources)Start: 04-09-2020 End: 64-32-2545trmtptxc 300 mg oral capsule (20 sources)Cephalosporin AntibacterialStart: 01-22-2024 End: 47-94-9162inbgdncgte propionate 0.5 mg/ml topical cream (17 sources)CorticosteroidStart: 03-08-2024 End: 25-75-0342Clajz: 03-08-2024 End: 83-22-7680Mmdpitnsga 0.05 % cream Discontinued TOPICAL March 08, 2024 12:00am June 02, 2024 5:19pmStart: 03-08-2024 End: 13-09-9127Snuinqlsqo 0.05 % cream Discontinued TOPICAL March 08, 2024 12:00am June 02, 2024 5:19pmStart: 03-08-2024 End: 05-25-0745Aamjorzxwe 0.05 % cream Discontinued TOPICAL March 07, 2024 11:00pm June 02, 2024 4:19pmStart: 03-08-2024 End: 25-20-9143Mzkjbtjyfb Discontinued TOPICAL March 08, 2024 12:00am June 02, 2024 5:19pmStart: 00-48-9911Lphdeporir Active TOPICAL March 08, 2024 12:00amdoxycycline hyclate 100 mg oral capsule (15 sources)Tetracycline-class DrugStart: 01-03-2025 End: 45-65-5278Lnepm: 11-08-2024 End: 79-20-1870ptvaqcqupzc hyclate 100 mg Cap 100 mg = 1 cap(s), Oral, BID, may substitute hyclate for monohydratebased on availability, X 3 day(s), # 6 cap(s), Refills(s) 0, Pharmacy: [facility], 171, cm, 08/31/24 11:19:00 EST, Height/Length Dosing, 94, kg, 08/31/24 11:19:00 EST, Weight Dosing Start Date: 11/08/24 Stop Date: 11/11/24 Status: Ordered Quantity: 6.0 Unit: cap(s) Repeat number: 1Start: 12-50-5234wppd 1 capsule by mouth twice dailydoxycycline monohydrate 100 mg oral capsule 100 mg = 1 cap(s), Oral, BID, # 14 cap(s), Refills(s) 0, called to pharmacy (Rx) Start Date: 01/08/24 Status: OrderedStart: 10-09-2022 End: 05-77-5071wzxf 1 capsule by mouth twice dailydoxycycline hyclate 100 mg Cap 100 mg = 1 cap(s), Oral, BID, X 7 day(s), # 14 cap(s), Refills(s) 0,Pharmacy: [facility], 180, cm, 10/09/22 11:06:00 EST, Height/Length Dosing, 95.5, kg, 10/09/22 11:06:00 EST, Weight Dosing Start Date: 10/09/22 Stop Date: 10/16/22 Status: OrderedStart: 55-27-4352osxk 1 mg by mouth twice daily doxycycline hyclate 100 mg Cap mg cap(s), Oral, BID, Refills(s) 0 Start Date: 12/10/21 Status: Orderedtake 1 tablet by mouth twice dailyDoxycycline Hyclate 100 MG 1 tablet Orally Twice a day Activeempagliflozin 10 mg oral tablet (10 sources)Sodium-Glucose Cotransporter 2 InhibitorStart: 10-04-2024 End: 18-87-1061dxofovubushebt 1.25 mg oral capsule (20 sources)Provitamin D2 CompoundStart: 03-10-2020 End: 34-18-8819Hijrt: 03-10-2020 End: 69-32-5733Qsonjvmaetdxlp (Vitamin D2) 1,250 mcg (50,000 unit) Capsule Discontinued 36795 UNIT PO Mo@0900 8 60Sept2019 9:01am July 02, 2020 10:01amStart: 03-10-2020 End: 77-77-9119zfnj 05714 [IU] by mouth onceErgocalciferol (Vitamin D2) Discontinued 33284 UNIT PO Mo@0900 8 60 May 07, 2020 9:01am July 02, 2020 10:01amfamotidine 20 mg oral tablet (20 sources)Histamine-2 Receptor AntagonistStart: 08-20-2021 End: 54-76-2677Vkhoqenlru Discontinued MG TABLET August 20, 2021 1:00am August 20, 2021 7:16pmStart: 03-10-2020 End: 71-63-4842bomp 1 tablet by mouth once daily at bedtimefamotidine 20 mg Tab 20 mg = 1 tab(s), Oral, Once a day (at bedtime), Refills(s) 0 Start Date: Status: Ordered Medication Dispense Status: Completed Total Allowed Fills: 1 Fills Dispensed: 0Start: 03-10-2020 End: 43-65-1996Zynwnuq on above:Take 20 mg by mouth.ferrous sulfate 325 mg oral tablet (20 sources)Start: 07-02-2020 End: 30-39-4517Nqgrw: 03-10-2020 End: 20-24-3648fmuvmwjvkb 100 mg oral capsule (20 sources)Anti-epileptic AgentStart: 07-02-2020 End: 07-76-5436Dglhv: 07-02-2020 End: 57-20-8442Czwkxdnids 100 mg Tablet Discontinued 100 MG PO Daily as needed for Pain October 15, 2020 1:00am May 30, 2021 2:41pm takes 2 in morning, 1 in the afternoon and 2 at nightglyBURIDE 5 mg oral tablet (20 sources)SulfonylureaStart: 03-04-2020 End: 88-72-8139nyrzjFQMMXHlbsmrkkp 25 mg / lisinopril 20 mg oral tablet (20 sources)Thiazide Diuretic, Angiotensin Converting Enzyme InhibitorStart: 03-04-2020 End: 76-00-8960Nyuaa: 03-04-2020 End: 96-65-4197aczq 1 tablet by mouth once dailyLisinopril-Hydrochlorothiazide 20-25 mg Tablet Discontinued 1 TAB PO Daily March 04, 2020 12:00am March 10, 2020 8:07aminsulin isophane, human 100 unt/ml injectable suspension (20 sources)Start: 05-07-2020 End: 44-93-1398Svhkf: 05-07-2020 End: 13-22-9832Kpdazxi Nph Isoph U-100 Human (Humulin N Nph U-100 Insulin) 100 unit/mL Suspension Discontinued 30 UNIT SUBCUT As Directed May 07, 2020 12:00am October 15, 2020 12:18pm on dexamethasone days3 ml insulin lispro 100 unt/ml pen injector (20 sources)Insulin AnalogStart: 84-05-9970caexpu 1 dose by subcutaneous injection at mealtimeInsulin Lispro Active 1 sliding scale dose SUBCUT .with meals June 02, 2024 12:00amStart: 43-74-5425femlkq 8 [IU] by subcutaneous injection once before mealtimeStart: 51-22-5075Crhqnby 8 unit(s), SubCutaneous, Refills(s) 0 Start Date: 12/10/21 Status: Ordered Medication Dispense Status: Completed Total Allowed Fills: 1 Fills Dispensed: 0Start: 62-77-0544Jqimnmt 8 unit(s), SubCutaneous, Refills(s) 0 Start Date: 12/10/21 Status: Ordered Repeat number: 1Start: 07-57-9235Pqnsfjv 8 unit(s), SubCutaneous, Refills(s) 0 Start Date: 12/10/21 Status: OrderedStart: 84-35-3794Vnhwfws SubCutaneous, Refills(s) 0 Start Date: 12/10/21 Status: OrderedStart: 04-27-2020 End: 23-91-3801Dufud: 04-27-2020 End: 39-83-9411omkgpf 100 [IU] by subcutaneous injection onceInsulin Lispro (Humalog Kwikpen Insulin) 100 unit/mL Insulin Pen Discontinued 6 - 16 UNIT SUBCUT AsDirected April 27, 2020 12:00am October 26, 2023 3:30pm per sliding scale instructionsHumaLOG KwikPen 100 UNIT/ML ICR 6--12 ac according to meal size plus ISS 1:20 ac, (hs if >200 half dose) Subcutaneous as directed ActiveInsulin Lispro (Humalog Kwikpen Insulin) 100 unit/mL Insulin Pen (20 sources)Start: 04-27-2020 End: 27-86-4185yfubbt 100 [IU] by subcutaneous injection onceInsulin Lispro (Humalog Kwikpen Insulin) 100 unit/mL Insulin Pen Discontinued 6 - 16 UNIT SUBCUT AsDirected April 26, 2020 11:00pm October 26, 2023 2:30pm per sliding scale instructionsStart: 04-27-2020 End: 15-66-1304nzxodg 100 [IU] by subcutaneous injection onceInsulin Lispro (Humalog Kwikpen Insulin) 100 unit/mL Insulin Pen Discontinued 6 - 16 UNIT SUBCUT AsDirected April 27, 2020 12:00am October 26, 2023 3:30pm per sliding scale instructionsStart: 96-21-8119pwtadh 100 [IU] by subcutaneous injection onceInsulin Lispro (Humalog Kwikpen Insulin) 100 unit/mL Insulin Pen Active 6 - 16 UNIT SUBCUT As Directed April 27, 2020 12:00am per sliding scale instructionsStart: 09-43-4739hwbpro 100 [IU] by subcutaneous injection onceInsulin Lispro (Humalog Kwikpen Insulin) 100 unit/mL Insulin Pen Active 6 - 16 UNIT SUBCUT As Directed April 26, 2020 11:00pm per sliding scale instructionsInsulin Lispro 100 unit/mL insulin pen (8 sources)Start: 06-02-2024 End: 13-73-1845skkumj 1 dose by subcutaneous injection at mealtimeInsulin Lispro 100 unit/mL insulin pen Discontinued 1 sliding scale dose SUBCUT .with meals 2023 12:00am August 03, 2024 4:43pmStart: 06-02-2024 End: 47-23-8388kxwdpv 1 dose by subcutaneous injection at mealtimeInsulin Lispro 100 unit/mL insulin pen Discontinued 1 sliding scale dose SUBCUT .with meals 2023 11:00pm August 03, 2024 3:43pmLactobacillus Combo No.23 (Suleman Probiotic) 14 billion cell capsule (20 sources)Start: 10-26-2023 End: 33-38-2313ltkw 1 capsule by mouth once dailyLactobacillus Combo No.23 (Suleman Probiotic) 14 billion cell capsule Discontinued 0 PO .once a day October 25, 2023 11:00pm June 02, 2024 4:24pm 1 capsule orally ONCE A DAY;Start: 10-26-2023 End: 44-98-5315glki 1 capsule by mouth once dailyLactobacillus Combo No.23 (Suleman Probiotic) 14 billion cell capsule Discontinued 0 PO .once a day October 26, 2023 12:00am June 02, 2024 5:24pm 1 capsule orally ONCE A DAY;Start: 35-25-9183yzjt 1 capsule by mouth once dailyLactobacillus Combo No.23 (Suleman Probiotic) 14 billion cell capsule Active 0 PO .once a day October 26, 2023 12:00am 1 capsule orally ONCE A DAY;Start: 55-03-5167Fdeupditjtiuj Combo No.23 (Suleman Probiotic) 14 billion cell capsule Active CELL PO .once a day 2023 12:00amlenalidomide 5 mg oral capsule (20 sources)Thalidomide AnalogStart: 06-27-2022 End: 70-66-4692Tqcyshjwkrzl (Revlimid) 5 mg Capsule Discontinued 0 .ROUTE .COMPLEX June 27, 2022 3:37pm January 22, 2023 1:26pm TAKE 1 CAPSULE EVERY OTHER DAY.ADULT MALE AUTH#[id number]: 06-27-2022 End: 08-77-7889Myzahwkgblqy (Revlimid) 5 mg Capsule Discontinued 0 .ROUTE .COMPLEX June 27, 2022 4:37pm January 22, 2023 2:26pm TAKE 1 CAPSULE EVERY OTHER DAY.ADULT MALE AUTH#[id number]: 55-50-9689Pzsipxivslnr (Revlimid) 5 mg Capsule Active 0 .ROUTE .COMPLEX June 27, 2022 4:37pm TAKE 1 C APSULE EVERY OTHER DAY.ADULT MALE AUTH#[id number]: 67-26-3771Liykyoyswyik (Revlimid) 5 mg Capsule Active 0 .ROUTE .COMPLEX June 27, 2022 3:37pm TAKE 1 CAPSULE EVERY OTHER DAY.ADULT MALE AUTH#[id number]: 06-02-2022 End: 29-39-7518Glguimonciqh (Revlimid) 5 mg Capsule Discontinued 0 .ROUTE .COMPLEX June 02, 2022 12:16pm June 27, 2022 4:38pm TAKE 1 CAPSULE EVERY OTHER DAY.ADULT MALE AUTH#[id number]: 06-02-2022 End: 25-04-7519Otymofueituj (Revlimid) 5 mg Capsule Discontinued 0 .ROUTE .COMPLEX June 02, 2022 11:16am June 27, 2022 3:38pm TAKE 1 CAPSULE EVERY OTHER DAY.ADULT MALE AUTH#[id number]: [id number] (Revlimid) 5 mg Capsule Active 0 .ROUTE .COMPLEX June 02, 2022 11:16am TAKE 1 CAPSULE EVERY OTHER DAY.ADULT MALE AUTH#[id number]: 05-02-2022 End: 45-53-1379Tsrjdqynupas (Revlimid) 5 mg Capsule Discontinued 0 .ROUTE .COMPLEX May 02, 2022 10:17amOct2021 12:17pm TAKE 1 CAPSULE EVERY OTHER DAY.ADULT MALE AUTH#[id number]: 05-02-2022 End: 69-01-1238Vllmmknuuzbb (Revlimid) 5 mg Capsule Discontinued 0 .ROUTE .COMPLEX May 02, 2022 9:17am June 02, 2022 11:17am TAKE 1 CAPSULE EVERY OTHER DAY.ADULT MALE AUTH#[id number]: [id number] (Revlimid) 5 mg Capsule Active 0 .ROUTE .COMPLEX May 02, 2022 10:17am TAKE 1 CAPSULE EVERY OTHER DAY.ADULT MALE AUTH#[id number]: 03-05-2022 End: 52-39-7002Podfp: 03-05-2022 End: 02-01-1682Cdmwyvizwbay (Revlimid) 5 mg Capsule Discontinued 0 .ROUTE .COMPLEX June 27, 2022 4:37pm January 22, 2023 2:26pm TAKE 1 CAPSULE EVERY OTHER DAY.ADULT MALE AUTH#[id number]: 03-05-2022 End: 34-33-4005Yzadxntjpcma (Revlimid) 5 mg Capsule Discontinued 0 .ROUTE .COMPLEX March 04, 2022 11:00pm May 02, 2022 9:17am TAKE 1 CAPSULE EVERY OTHER DAY.ADULT MALE AUTH#[id number]: 03-05-2022 End: 43-20-8136Onqrytslwyfn (Revlimid) 5 mg Capsule Discontinued 0 .ROUTE .COMPLEX March 05, 2022 12:00am May 02, 2022 10:17am TAKE 1 CAPSULE EVERY OTHER DAY.ADULT MALE AUTH#[id number]: 95-56-7189Ewkctyganjqq (Revlimid) 5 mg Capsule Active 0 .ROUTE .COMPLEX March 05, 2022 12:00am TAKE 1 CAPSULE EVERY OTHER DAY.ADULT MALE AUTH#[id number]: 10-18-2020 End: 27-60-8652Nblzl: 10-18-2020 End: 86-97-2289Fmynr: 04-12-2020 End: 77-17-7572Fzqvv: 04-12-2020 End: 36-19-4643Xycxknqtaron (Revlimid) 5 mg Capsule Discontinued 5 MG PO Every 48 hours 07 14May 07, 20209:01am July 02, 2020 9:52am swallow whole with glass of water; do not open, crush, chew , break, or dissolve take 1 tab every other day for 21 days of each 28 day cycle (total 11 tabs every month) Start: 03-08-2020 End: 31-83-2615btenjofcpw hydrochloride 2 mg oral capsule (20 sources)Opioid AgonistStart: 10-15-2020 End: 01-44-7334qeeavdel potassium 25 mg oral tablet (20 sources)Angiotensin 2 Receptor BlockerStart: 06-08-2023 End: 38-91-1284qtsmrefogxl hippurate 1000 mg oral tablet (11 sources)Start: 10-04-2024 End: 77-64-1414Cpgjc: 37-12-2215Adcdzlvdxkd Hippurate 1 gram tablet Active 1 GM PO Daily October 04, 2024 1:00amStart: 23-56-9565Cwufcfaudte Hippurate 1 gram tablet Active 1 GM PO Daily October 04, 2024 12:00amStart: 10-03-2024 End: 14-04-9924Hrwbiejxckiufxgfti (20 sources)CorticosteroidStart: 03-04-2020 End: 51-84-6371Mgjaalpqxihqzdcjnj 4 mg tablets,dose pack Discontinued MG March 04, 2020 12:00am March 10, 2020 8:07amStart: 03-04-2020 End: 42-19-4185Zvvuevmexxdbawvnhy 4 mg tablets,dose pack Discontinued MG March 03, 2020 11:00pm March 10, 2020 7:07amStart: 03-04-2020 End: 80-43-4090Ezxpo: 03-04-2020 End: 55-14-7239Sadukloeqlhnriasvs Discontinued MG March 03, 2020 11:00pm March 10, 2020 7:07amStart: 03-04-2020 End: 21-80-7077Bwdggircwcfyklivut Discontinued MG March 04, 2020 12:00am March 10, 2020 8:07ammorphine sulfate 15 mg extended release oral tablet (20 sources)Opioid AgonistStart: 07-02-2020 End: 65-65-7512Wwiviuwacwnn (Daily Multi-Vitamin) tablet (20 sources)Start: 10-26-2023 End: 10-33-0422lftr 1 tablet by mouth once dailyMultivitamin (Daily Multi- Vitamin) tablet Discontinued 1 TAB PO Daily October 26, 2023 12:00am August 03, 2024 4:38pmStart: 10-26-2023 End: 93-94-1744niqc 1 tablet by mouth once dailyMultivitamin (Daily Multi- Vitamin) tablet Discontinued 1 TAB PO Daily October 25, 2023 11:00pm August 03, 2024 3:38pmStart: 56-56-3388cfvy 1 tablet by mouth once dailyMultivitamin (Daily Multi-Vitamin) tablet Active 1 TAB PO Daily October 26, 2023 12:00am nitrofurantoin, macrocrystals 100 mg oral capsule (20 sources)Nitrofuran AntibacterialStart: 10-26-2023 End: 67-46-6482xpnfnsznwjhdbj, macrocrystals 25 mg / nitrofurantoin, monohydrate 75 mg oral capsule (20 sources)Nitrofuran AntibacterialStart: 07-22-2023 End: 08-16-3829cebw 1 capsule by mouth twice dailyMacrobid 100 mg Cap 100 mg = 1 cap(s), Oral, BID, take 1 cap morning of cath change and 12hrs after, # 30 cap(s), Refills(s) 1, Pharmacy: [id number], 171, cm, 07/22/23 9:22:00 EST, Height/Length Dosing, 94, kg, 07/22/23 9:22:00 EST, Weight Dosing Start Date: 07/22/23 Status: Ordered Medication Dispense Status: Completed Quantity: 30.0 Unit: cap(s) Total Allowed Fills: 2 Fills Dispensed: 0 pioglitazone 30 mg oral tablet (20 sources)Peroxisome Proliferator Receptor alpha Agonist, Peroxisome Proliferator Receptor gamma Agonist, ThiazolidinedioneStart: 03-04-2020 End: 64-48-1102xangxxhly chloride 20 meq extended release oral tablet (20 sources)Start: 04-11-2022 End: 50-50-2957Ewgbx: 36-74-4194yyhd 20 mEq by mouth once dailyPotassium Chloride Active 20 MEQ PO Daily April 11, 2022 9:03amStart: 62-51-7502uuxv 1 tablet by mouth twice dailypotassium chloride 20 mEq ER Tab mEq tab(s), Oral, BID, Refills(s) 0 Start Date: 11/13/20 Status: OrderedStart: 10-15-2020 End: 87-78-8780cuiojmmcwsjf calcium 5 mg oral tablet (20 sources)HMG-CoA Reductase InhibitorStart: 03-10-2020 End: 36-11-1807dfhrnuljiw, intermediate 8.6 mg oral tablet (20 sources)Start: 03-10-2020 End: 68-54-8656jtwmaqotznf 40 mg oral tablet (20 sources)HMG-CoA Reductase InhibitorStart: 03-04-2020 End: 20-75-3920Mchjj: 03-04-2020 End: 21-64-3651ycul 1 tablet by mouth at bedtimeSimvastatin 40 mg Tablet Discontinued 40 MG PO Bedtime March 04, 2020 12:00am March 10, 2020 8:07am tamsulosin hydrochloride 0.4 mg oral capsule (20 sources)alpha-Adrenergic BlockerStart: 04-30-2022 End: 77-63-0828Vugze: 04-30-2022 End: 47-52-0072mlfc 1 capsule by mouth once dailytamsulosin 0.4 mg Cap 0.4 mg = 1 cap(s), Oral, Daily, # 30 cap(s), Refills(s) 5, Pharmacy: [facility] #[id number], 180, cm, 07/04/22 13:18:00 EST, Height/Length Dosing, 95.5, kg, 07/04/22 13:18:00 EST, Weight Dosing Start Date: 07/04/22 Status: OrderedStart: 82-09-9876gsrhjzdswv 0.4 mg Cap Refills(s) 0 Start Date: 04/01/22 Status: Ordered Start: 10-03-2021 End: 91-79-4364Oxfbp: 10-03-2021 End: 31-80-6341tjfo 1 capsule by mouth once dailyTamsulosin 0.4 mg Capsule Discontinued 0.4 MG PO Daily October 03, 2021 1:00am February 05, 2022 11:48am terazosin 10 mg oral capsule (20 sources)alpha-Adrenergic BlockerStart: 02-05-2022 End: 92-78-4635Zpkdq: 56-27-8382enwk 1 capsule by mouth once daily at bedtime terazosin 10 mg Cap 10 mg = 1 cap(s), Oral, Once a day (at bedtime), # 30 cap(s), Refills(s) 1, Pharmacy: [id number], 180, cm, 01/28/22 8:49:00 EDT, Height/Length Dosing, 110, kg, 01/28/22 8:49:00 EDT, Weight Dosing Start Date: 01/28/22 Status: OrderedtraMADol hydrochloride 50 mg oral tablet (20 sources)Opioid AgonistStart: 10-15-2020 End: 33-73-1947Adnyk: 05-07-2020 End: 89-28-1201Iwvwx: 05-07-2020 End: 14-95-7982pubv 1 tablet by mouth every six hours as needed for painTramadol 50 mg Tablet Discontinued 50 MG PO Q6H as needed for Pain 60 May 07, 2020 12:00am May 30, 2020 10:46amvitamin b12 1 mg oral tablet (20 sources)Vitamin A22Hhjsg: 10-03-2021 End: 51-60-3479Akek (20 sources)Start: 07-02-2020 End: 93-96-7403pzlt 1 tablet by mouth once dailyZinc 50 mg Tablet Discontinued 50 MG PO Daily July 02, 2020 1:00am October 15, 2020 11:40amStart: 07-02-2020 End: 62-29-2423agjm 1 tablet by mouth once dailyZinc 50 mg Tablet Discontinued 50 MG PO Daily July 02, 2020 12:00am October 15, 2020 10:40amStart: 07-02-2020 End: 06-66-3274ydrd 50 mg by mouth once dailyZinc Discontinued 50 MG PO Daily July 02, 2020 12:00am October 15, 2020 10:40amStart: 07-02-2020 End: 58-05-4721ocue 50 mg by mouth once dailyZinc Discontinued 50 MG PO Daily July 02, 2020 1:00am October 15, 2020 11:40amzolpidem tartrate 5 mg oral tablet (20 sources)gamma-Aminobutyric Acid-ergic AgonistStart: 03-11-2020 End: 02-27-2021 Problems Active Problems Problem ClassificationProblemDateDocumented DateEpisodic/ChronicAcute and unspecified renal failure (20 sources)Uremia; Translations: [Unspecified kidney failure]01-78-9534Vmnrsij Acute and unspecified renal failure (20 sources)Acute kidney failure, unspecified; Translations: [Injury of kidney] Onset: 10-29-2021 Resolved: 90-27-4306QcooqycrJleufjizimucpq/social admission (20 sources)Patient encounter status; Translations: [Other specified counseling] 96-05-9588UtonozmvTvwcvgyy of urinary tract (20 sources)Kidney stone; Translations: [Calculus of kidney]Onset: 10-29-2021 Resolved: 18-31-3579VwzmeyqsLwfozo of prostate (20 sources)Malignant neoplasm of prostate; Translations: [Malignant tumor of prostate]Onset: 60-36-6112NcghcdmVzvrxow kidney disease (20 sources)Chronic kidney disease stage 3; Translations: [Chronic kidney disease, stage 3 (moderate)]Onset: 902330-69-0620OwbywkjEstfnkm kidney disease (6 sources)Chronic kidney disease; Translations: [Chronic kidney disease, stage III (moderate)]Onset: 10-29-2021 Resolved: 32-84-4870Pxrzfooaxe and other anemia (1 source)Other pancytopenia; Translations: [Other pancytopenia]Onset: 93-62-6818PpepqxjUdjnlagdtj and other anemia (4 sources)Anemia co-occurrent and due to chronic kidney disease stage 3; Translations: [Anemia of chronic renal failure, stage 3 (moderate)]02-09-2025 ChronicDeficiency and other anemia (1 source)Anemia in chronic kidney disease; Translations: [Anemia in chronic kidney disease]Onset: 19-65-6419PyrhbtfAhdqysmccm and other anemia (2 sources)Anemia, unspecifiedOnset: 10-29-2021 Resolved: 96-04-4087UehnlvxrEjyjzwqmor and other anemia (20 sources)Iron deficiency anemia; Translations: [Iron deficiency anemia, unspecified]Onset: 002588-03-2082AmmrkakxWbjosaswlc and other anemia (20 sources)Iron deficiency anemia, unspecified; Translations: [Iron deficiency anemia, unspecified]12-86-8635MuandkiuVfxzwdyw mellitus with complications (20 sources)Type 2 diabetes mellitus; Translations: [Type 2 diabetes mellitus with hyperglycemia]Onset: 10-29-2021 Resolved: 93-99-6409SeygcttKtkzrmyv mellitus without complication (20 sources)Type 2 diabetes mellitus without complication; Translations: [Type 2 diabetes mellitus without complications]Onset: 10-29-2021 Resolved: 73-32-7837PsfrehqFpowydsm mellitus without complication (20 sources)Glycosuria; Translations: [Glycosuria]Onset: 42-84-5735Tpjmgjwr Disorders of lipid metabolism (20 sources)Hypercholesterolemia; Translations: [Pure hypercholesterolemia, unspecified]Onset: 355604-96-6583AomozhtGjbtioxpb of teeth and jaw (20 sources)Loss of teeth due to extraction; Translations: [Partial loss of teeth, unspecified cause, unspecified class]01-20-3756EfifruevPjhfeaydo hypertension (20 sources)Hypertensive disorder; Translations: [Essential (primary) hypertension]Onset: 10-29-2021 Resolved: 269607-03-4635HxdtflxYxntilavnxrfw symptoms and ill-defined conditions (20 sources)Urinary incontinence; Translations: [Unspecified urinary incontinence]51-61-2187FqbvvprMlqjqhjsitsfj symptoms and ill-defined conditions (20 sources)History of urinary tract infection; Translations: [Personal history of urinary (tract) infections]Onset: 97-02-2144ZfevzznzBmbkyngvgnb of prostate (20 sources)Benign prostatic hypertrophy with outflow obstruction; Translations: [Benign prostatic hyperplasia with lower urinary tract symptoms]Onset: 05-76-4478RljswfkRqsomotzlzjn with complications and secondary hypertension (20 sources)Malignant hypertensive chronic kidney disease; Translations: [Hypertensive chronic kidney disease with stage 1 through stage 4 chronic kidney disease, or unspecified chronic kidney disease]Onset: 10-29-2021 Resolved: 89-16-9479GbtoveiCuortvlzduj chemotherapy; radiotherapy (20 sources)Patient encounter status; Translations: [Encounter for antineoplastic chemotherapy]24-47-7410HmrzikzCjdmiyys myeloma (20 sources)Multiple myeloma; Translations: [Multiple myeloma not having achieved remission]Onset: 10-29-2021 Resolved: 33-32-9646FiesakjEhmzcilmzwk deficiencies (20 sources)Vitamin D deficiency; Translations: [Vitamin D deficiency, unspecified]59-12-2477AlftjlkQkgnttxpoik deficiencies (20 sources)Cobalamin deficiency; Translations: [Deficiency of other specified B group vitamins]14-18-1763BkptweqxKlgoaitfioifaz (1 source)Unspecified osteoarthritis, unspecified site; Translations: [UNSPECIFIED OSTEOARTHRITIS UNS SITE]Onset: 12-04-0312CljdawlKhozo aftercare (1 source)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 therapy; Translations: [OTH MCC CURRENT DRUG THERAPY]Onset: 56-11-0535MgflluwaWfzst aftercare (3 sources)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; Translations: [MCC CURRENT USE OF INSULIN]Onset: 41-06-1016WotfwyacSupgk aftercare (1 source)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; Translations: [MCC CURRENT USE OF ASPIRIN]Onset: 20-14-3654KnygydvaAhyov aftercare (1 source)longterm (current) use of oral hypoglycemic drugs; Translations: [MCC USE ORAL HYPOGLYCEMIC DX]Onset: 86-46-4403ZovhpwfhHfsvg circulatory disease (20 sources)Suspected heart failure; Translations: [Other specified symptoms and signs involving the circulatory and respiratory systems]53-29-4963IqmfekbqTceqv diseases of bladder and urethra (10 sources)Detrusor overactivity; Translations: [Overactive bladder]Onset: 36-03-6724JwmelllPzbuh diseases of bladder and urethra (20 sources)Overactive adrcmrh30-79-8029FfnjdnuNcxse diseases of bladder and urethra (1 source)Overactive bladder; Translations: [OVERACTIVE BLADDER]Onset: 81-07-8995AyzutruTvqqe diseases of bladder and urethra (1 source)Other specified disorders of bladder; Translations: [OTHER SPECIFIED DISORDERS BLADDER]Onset: 02-56-0979WomryvoNcpzr diseases of bladder and urethra (20 sources)Neurogenic dysfunction of the urinary bladder; Translations: [Neuromuscular dysfunction of bladder,unspecified]Onset: 22-92-9836VwfegbfVbzmh diseases of bladder and urethra (20 sources)Noncompliant bladder; Translations: [Neuromuscular dysfunction of bladder, unspecified]76-63-1393GuxibwlVgqkd diseases of bladder and urethra (1 source)Neurogenic bladder; Translations: [Neuromuscular dysfunction of bladder, unspecified]ChronicOther diseases of bladder and urethra (4 sources)Neuromuscular dysfunction of bladder, unspecified; Translations: [Low bladder compliance]Onset: 966815-22-8495OblhdimVcrxo diseases of kidney and ureters (20 sources)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; Translations: [Other specified disorders of kidneyand ureter]11-19-6113TzxwaaeAtqxh diseases of kidney and ureters (20 sources)Other specified disorders of kidney and ureter; Translations: [Other specified disorders of kidney and ureter]Onset: 117274-39-2009Rwbuvgg Other diseases of kidney and ureters (6 sources)Urinary tract obstruction; Translations: [Other obstructive and reflux uropathy]Onset: 00-56-9679VftdcdahTuniw diseases of kidney and ureters (20 sources)Hydronephrosis; Translations: [Unspecified hydronephrosis]Onset: 03-03-1332EwkangeoWdlff diseases of kidney and ureters (20 sources)Bilateral jonjgcvddsjgbo90-36-2131GiblvvehUinhr diseases of kidney and ureters (20 sources)Xclcfljnayf56-20-5141WqvpbjiiUbbdf diseases of kidney and ureters (20 sources)Cxiblazdngfqkojibnojn28-39-7835CislcafhTeugr diseases of kidney and ureters (16 sources)Unspecified hydronephrosis; Translations: [Hydronephrosis]Onset: 79-66-2035NkggmqfiTyxmw diseases of kidney and ureters (1 source)Hydronephrosis with ureteral stricture, not elsewhere classified; Translations: [HYDRONEPHROSIS W/URETRL STRICT NEC]Onset: 19-89-5382RtrafhigBytlc diseases of kidney and ureters (20 sources)Stricture of ureter; Translations: [Crossing vessel and stricture of ureter without hydronephrosis]Onset: 86-92-3469AbylnqivPogdh diseases of kidney and ureters (1 source)Acquired stricture of ureter; Translations: [Crossing vessel and stricture of ureter without hydronephrosis]EpisodicOther gastrointestinal disorders (20 sources)Occult blood in stools; Translations: [Other fecal abnormalities] 73-34-5593CdxmyscuApjci gastrointestinal disorders (20 sources)Constipation; Translations: [Constipation, unspecified]03-14-2020 EpisodicOther hematologic conditions (20 sources)History of anemia vitamin B12 deficient; Translations: [Personal history of diseases of the blood and blood-forming organs and certain disorders involving the immune mechanism]60-13-3981AerotjtiGxhen hematologic conditions (20 sources)Personal history of diseases of the blood and blood-forming organs and certain disorders involving the immune mechanism; Translations: [Personal history of diseases of blood and blood-forming organs]25-27-7850PhvhkmtwAiitd infections; including parasitic (4 sources)History of -80-1922MyjapjlqXpswu nervous system disorders (3 sources)Polyneuropathy due to drug; Translations: [Drug-induced polyneuropathy]ChronicOther nervous system disorders (20 sources)Peripheral neuropathy due to and following chemotherapy; Translations: [Drug-induced polyneuropathy]48-64-0538OvopngeFcyon nervous system disorders (20 sources)Drug-induced polyneuropathy; Translations: [Polyneuropathy due to other toxic agents]15-70-9119BrffyeuMeobq nervous system disorders (1 source)Polyneuropathy, unspecified; Translations: [POLYNEUROPATHY UNSPECIFIED]Onset: 26-83-2969YmaizumVobwq non-traumatic joint disorders (15 sources)Shoulder pain; Translations: [Pain in left shoulder]03-14-2020 EpisodicOther non-traumatic joint disorders (20 sources)Pain in left shoulder; Translations: [Left shoulder pain]03-14-2020 EpisodicOther nutritional; endocrine; and metabolic disorders (20 sources)Hypophosphatemia; Translations: [Other disorders of phosphorus metabolism]44-50-9012BkpyxjrQyyaj nutritional; endocrine; and metabolic disorders (20 sources)Other disorders of phosphorus metabolism; Translations: [Disorders of phosphorus metabolism]Onset: 17-16-7492TbyvcesJdcgc skin disorders (20 sources)Eruption; Translations: [Rash and other nonspecific skin eruption] 75-12-5624WyqrdqbnXikwn skin disorders (20 sources)Rash and other nonspecific skin eruption; Translations: [Rash and other nonspecific skin eruption]58-74-6589LfsjqrmcObrkimzvj; thrombophlebitis and thromboembolism (20 sources)Thrombophlebitis of superficial vein of left upper limb; Translations: [Phlebitis and thrombophlebitis of other sites]89-33-3089Khcpwjor Residual codes; unclassified (2 sources)Bone marrow transplant status; 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]Onset: 43-59-4245ZrlefpiUzkjlrap codes; unclassified (13 sources)History of bone marrow transplant; 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]Onset: 65-12-7412IrlmtwhArytbzzq codes; unclassified (17 sources)Family history of cancer; Translations: [Family history of malignant neoplasm of prostate]Onset: 01-28-6232IupstcpwAqowyejl codes; unclassified (20 sources)Family history of prostate kvortj90-43-7482BnntonbhWzisgspc codes; unclassified (20 sources)Insomnia; Translations: [Insomnia, unspecified]71-98-1449Esobmuip Residual codes; unclassified (20 sources)Personal history of other medical treatment; Translations: [Other specified personal history presenting hazards to health]55-23-1169Ugzdisrb Residual codes; unclassified (1 source)Family history of malignant neoplasm of prostate; Translations: [FAMILY HX MALIG NEOPLASM PROSTATE]Onset: 90-67-2414GpnzdfhkDvvryeup codes; unclassified (2 sources)Other specified postprocedural states; Translations: [OTH SPECIFIED POSTPROCEDURAL STATES]Onset: 69-50-1204ZlxgfnykWnfvejzm codes; unclassified (9 sources)History of hemodialysis; Translations: [Personal history of other medical treatment]52-56-8807HadvpvwdWhaaelrqwe arthritis and related disease (20 sources)Rheumatoid arthritis; Translations: [Rheumatoid arthritis, unspecified]Onset: 844606-45-9807PxrpmozReoulxokuzin (20 sources)Asymptomatic microscopic oebcxdrep18-02-2709Kfmebmqyicxd (20 sources)Finding of sensation of esdpfde57-98-6017Draijohbvrva (1 source)CHRN KIDNEY DISEASE STG 3 UNSP; Translations: [CHRN KIDNEY DISEASE STG 3 UNSP]Onset: 39-85-5524Tbccgllxdqnh (1 source)CONTACT W/AND (SUSP) EXPOS COVID-19; Translations: [CONTACT W/AND (SUSP) EXPOS COVID-19]Onset: 82-92-3964Hvmmgzuhjujs (3 sources)Autogenerated ProblemOnset: 782794-27-1662Gfgyigd tract infections (20 sources)Acute urinary tract infection; Translations: [Urinary tract infection, site not specified]Onset: 290173-39-3952Ljdtomti Past or Other Problems Problem ClassificationProblemDateDocumented DateEpisodic/ChronicFluid and electrolyte disorders (20 sources)Hyperkalemia; Translations: [Hyperkalemia]Onset: 10-29-2021 Resolved: 65-23-4461JidgtflxYfq-Hodgkin`s lymphoma (1 source)Personal history of other malignant neoplasms of lymphoid, hematopoietic and related tissues; Translations: [PERS HX OTH MAL MAYCOL LYMPH AND HEMATOPET]Onset: 96-25-7848WgovzgjyIvyzz aftercare (1 source)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; Translations: [MCC CURRNT USE ANTICOAGULANTS]Onset: 55-05-2113KfjeumqdKqges diseases of bladder and urethra (1 source)Unspecified urethral stricture, male, meatal; Translations: [UNSP URETHRAL STRICTURE MALE MEATAL]Onset: 46-11-5774JivqxecmPhgcg diseases of kidney and ureters (4 sources)Crossing vessel and stricture of ureter without hydronephrosis; Translations: [Ureteral stricture]Onset: 62-38-5393EgkxfzneEgdzlfqxx and history of mental health and substance abuse codes (1 source)Personal history of nicotine dependence; Translations: [PERSONAL HISTORY OF NICOTINE DEPEND]Onset: 54-13-8374Dnksbrge Results Test NameValueInterpretationReference RangeFacilityAmbulatory Visit Summaryon 19-98-3918Wnsgabrlay Visit SummaryAmbulatory Visit Summary PATSY MILLS :1945 Visit Date:06/21/2025 Ambulatory Visit Instructions Your Diagnosis Ureteral stricture Recurrent UTI Prostate cancer Noncompliant bladder BPH with urinary obstruction Incomplete bladder emptying Hydroureteronephrosis Kidney stones Your Care Team Attending Physician - Diego RICKS, Orquidea Taylor Primary Care Physician - HELEN OCHOA MD This Is Your Medications List nitrofurantoin (Macrobid 100 mg Cap) oxybutynin (oxybutynin 10 mg ER Tab) Contact prescribing physician if questions or concerns Non-Formulary Medication (D-mannose) acetaminophen (acetaminophen 500 mg Tab) aspirin (aspirin 81 mg Oral EC Tab) atorvastatin (atorvastatin 20 mg Tab) bifidobacterium-lactobacillus (Probiotic + Colostrum) cholecalciferol (Vitamin D3 2000 intl units) cranberry (Cranberry) cyanocobalamin (Vitamin B-12 100 mcg oral tablet) darbepoetin raymond (Aranesp) docusate (Dulcolax Stool Softener) famotidine (famotidine 20 mg Tab) insulin glargine (Lantus insulin) insulin lispro (Humalog) multivitamin with iron (Gentle Iron oral capsule) Procedures Performed Cystoscopy (05/16/2025), Placement of nephrostomy catheter, percutaneous, including diagnostic [...] Cystoscopic removal of ureteric stent (08/20/2012), Cystoscopic uret eroneocystostomy with insertion of ureteral stent (08/05/2012), ESWL of kidney (03/02/2009), Dentalsurgical procedure, heel spur, Stem cell transplant. Discharge Vitals Heart Rate (Peripheral) 75 Blood Pressure 150/73 Height 173 cm Height 68 in Weight 95 kg Weight 209.439 lb BMI 31.74 What to do next Scheduled Follow-Up Appointments Thursday 10:00 AM EST With: Orquidea Issa MD Where: [facility] [address] [address]- You Need to Schedule the Following Appointments Follow Up with Orquidea Issa MD M., URKerry, URO When: Where: Medications What How Much When Instructions Unchanged nitrofurantoin (Macrobid 100 mg Cap) 1 Capsules By Mouth 2 times a day take 1 cap morningof cath change and 12hrs after Unchanged oxybutynin [...] prescribing physician if questions or concerns Unchanged bifidobacterium-lactobacillus (Probiotic + Colostrum) By Mouth Every day [...] concerns Allergies Myrbetriq (Multiple open mouth wounds) Latex (Rash) gabapentin (Unknown, R (more content not included)...[facility] Noteon 73-86-5356Uvaoqyy Office/Clinic NoteUrology Office/Clinic Note Chief Complaint 1 mo f/u HPI Staff 1 mo f/u to S/p cysto, BL stent removal, SP tube change 05/16/25. UCx: 05/16/25 - 50k E. coli & 5k Jessica, treated with Doxy 100 mg bid x 7d and Fluconazole 50 mg qd x 7d Oxybutynin 10 mg qd yes still taking Patient denies any dysuria or gross hematuria. Denies any flank or abdomen pain. History of Present Illness Tests reviewed: op note, ucx I have reviewed the previous health record information and history for this patient from Dr. Issa. I have reviewed and verified the staff [...] HPI. Physical Exam Vitals & Measurements HR: 75(Peripheral) BP: 150/73 HT: 173 cm HT: 68 in WT: 95 kg WT: 209.439 lb BMI: 31.74 General Appearance: alert, no distress, well nourished, well developed adult. 16Fr silicone SPT to leg bag, cloudy scant urine in bag BL NTs in place, clipped into stat lock, yellow urine, not significantly cloudy Assessment/Plan 80 yo M with complex urologic history s/p urolift, TURP, incidental finding of fav intermediate risk prostate cancer on active surveillance, found to have right distal ureteral stricture, non-compliant small bladder with BL VUR, acute on chronic renal failure. He was referred to Dr. Jessica Feliciano for further evaluation regarding recommendations of SP tube, stent, definitive care which is more invasive (cystectomy). Now s/p BL ureteral stent removal, here for f/u. Hx of multiple myeloma s/p tx, currently in remission. Sees Dr. Huddleston - no contraindications to proceed with any treatments or interventions. THERESA N/A, pt inactive. Follows with nephro, Dr. Crain. Pt here with his today. 1. Ureteral stricture (N13.5: Crossing vessel and stricture of ureter without hydronephrosis) 10/14/22 - Crea 1.54. eGFR 44. (gunn in place) Cr up to 2 without gunn 0 12/08/22 - Cr 1.78. eGFR 37. BUN 30. K 5.0. (with gunn) 12/17/22 - Cr 1.84. eGFR 37. BUN 22. K 5.3. (with stent) 04/23/23 - Cr 1.80. eGFR 38. BUN 24. K 4.6 (with stent and SPT) 01/21/24 - Cr 2.83. BUN 40. K 4.3. (with stent and SPT) at [facility] [place] to RINA and UTI 01/22/24 - Cr 2.58. BUN 31. K 4.1. (with stent and SPT) at [facility] due to RINA and UTI 06/08/24 - [...] calculi left kidney measuring 7 mm. Post Gunn Renal US 10/14/22 neg for hydro. ANA 10/30/22 - Mild right pelvocaliectasis, neg for hydro. Pt refused gunn/CIC at that time. Renal US 11/17/22 [facility] - R-sided hydronephrosis and proximal hydroureter. Findings have progressed since prior study. Cr 1.87/ eGFR 36.6 Cath placed 11/21/2022 ANA 12/01/22 - Right hydronephrosis, grossly similar to the prior study despite gunn in place. S/p cysto/RG/ureteroscopy/stent placement/RT ureteral dilation and stent placement 12/10/22. ANA 12/17/22 - Interval resolution of the right sided hydronephrosis since the prior US study. Referred to [facility] urologist for right distal stricture, small capacity bladder with BL VUR 12/19/22. Dr. Jessica Feliciano evaluation -offered Botox, right stent placement and SP tube with plans for bladder augmentation and reimplant if bladder were to increase in size substantially. Patient declinedinvasive definitive treatment. He elected to proceed with chronic indwelling right stent with routine exchanges q3m and SP tube q1m S/p Cysto/R ureteral stent removal/R RGP/R stent placement 03/05/23. 7f x 26cm stent. S/p Cysto/R RGP/Ureteral stent exchange/L ESWL/SPT exchanged 06/10/23. Cont q4m ANA 01/20/24 [facility] - Bilateral mild pelvocaliectasis L>R. S/p cysto, R RPG, stent exchange, SP tube exchange, TP prostate bx, TRUS 06/01/24. Urology consult 06/03/24 due to moderate L hydroureteronephrosis with R stent and SPT S/p cysto, L RPG, stent placement 06/04/24. 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 BL stent exchange, SP tube exchange w/ Dr.Ahmad Manley at [facility] after transfer. 7x26 JJ-stent BL, Recommended neph tubes. 07/28/24 S/p cysto, JOSE RPG, JOSE stent exchange, SPT change 11/09/24. S/ (more content not included)...[facility] HospitalComment on above:Result Comment: Electronically Signed By: Orquidea Issa MD\.br\Date and Time Signed: 06/21/25 12:13EST\.br\Electronically Co-Signed By: Valentina Sharp\.br\Date and Time Co-Signed: 06/21/25 09:45 EST\.br\Electronically Co-Signed By: Valentina Sharp\.br\Date and Time Co-Signed: 06/21/25 10:33 ESTBRIEF OP ANTONIAon [id number] OP KENNO ID: [id number] Author: JAYLEN JACKSON MD Service: Radiology Author Type: Physician Type: Brief Op Note Filed: 06/08/2025 11:30 Note Text: BRIEF OPERATIVE / PROCEDURE NOTE LOG ID: [id number] SURGERY/PROCEDURE DATE: 06/08/2025 INCISION/PROCEDURE START TIME: 11:07 AM INCISION CLOSE/PROCEDURE END TIME: 11:19 AM SURGEON(S)/PROCEDURALIST(S) AND DIRECTOR APPOINTMENT(S): Surgeons and Role: * Jaylen Jackson MD - Primary No Additional Staff SURGERY/PROCEDURE(S): Routine exchange of bilateral 10 Australian nephrostomy catheters ANESTHESIA: Procedural Sedation FINDINGS: Routine exchange of bilateral 10 Australian nephrostomy catheters was performed without immediate complications. Catheters attached to external drainage. ESTIMATED BLOOD LOSS: 1 mls SPECIMENS: None CLOSURE TECHNIQUE: Primary PRE-OP/PRE-PROCEDURE DIAGNOSIS: Routine exchange POST-OP/POST-PROCEDURE DIAGNOSIS: Same as Preop SIGNATURE: Jaylen Jackson MD PATIENT NAME: Patsy Mills DATE: June 08, 2025 TIME: 11:26 [facility] [id number] (AVXRPR) PATSY MILLS ([id number]) 1945 M Date Time Provider Department 06/08/25 CHANEL JUARES AVXRPR During your visit today, we recorded the following information about you: Chanel Juares RN 06/08/2025 11:21 AM Signed Tube Exchange Appointment Request Form Person filling out this form: Chanel Juares RN Date: June 08, 2025 Time: 11:20 AM Patient Name: Patsy Mills Patient What type of tube is [...] No Any other pertinent information needed for schedulers?Bilateral tubes JeraldAna 06/08/2025 2:29 PM Signed Pt is due 08/03. Allergies As of Date: 06/08/2025 Noted Allergy Reaction MIRABEGRON 06/27/2022 6 - Diarrhea 8 - GI Upset GABAPENTIN 08/20/2021 2 - Rash TAPE (ADHESIVE TAPE-SILICONES) 06/08/2025 2 - Rash Date Reviewed: 06/08/2025 Reviewed by: Arya Mills, EVY - Fully Assessed Reason for Visit: IR Outpatient Tube Appointment Request [[id number]] Prescriptions as of 06/08/2025 - aspirin 81 mg chewable tablet mg [...] times daily. 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] 07/03/2022 Rheumatoid arthritis (HCC) [M06.9] 12/15/2022 Prostate cancer (HCC) [C61] 02/11/2023 Benign prostatic hyperplasia with urinary obstr*12/10/2021 Stage 3 chronic kidney disease (HCC) [N18.30] 05/08/2022 Diabetes (HCC) [E11.9] 02/11/2023 Hypercholesterolemia [E78.00] 09/04/2022 HTN (hypertension) [I10] 02/11/2023 Iron deficiency anemia [D50.9] 02/11/2023 Encounter Status:Closed by CHANEL JUARES on 06/08/25[facility] HospitalHISTORY PHYSICALon [id number] PHYSICALHNO ID: [id number] Author: JAYLEN JACKSON MD Service: Radiology Author Type: Physician Type: H&P Filed: 06/08/2025 10:16 Note Text: RADIOLOGY PROCEDURAL SEDATION HISTORY AND PHYSICAL EXAM SERVICE DATE: 06/08/2025 SERVICE TIME: 1015 Subjective HPI: This is a 80 year old male who presents with bilateral PCNs here for exchange PROCEDURE SCHEDULED: Procedure(s): PERC EXCHANGE NEPHROSTOMY CATH, INCLUDING DIAGNOSTIC NEPHROSTOGRAM/URETEROGRAM WHEN PERFORMED,IMAGING GUIDANCE AND ALL ASSOCIATED RAD SHELLY (Pending) RADIOLOGY ORDER PLACED: PAST ANESTHESIA HISTORY: No history of adverse event PAST MEDICAL HISTORY Diagnosis Date Anemia BPH (benign prostatic hyperplasia) Diabetes (HCC) Hypertension Kidney stones Multiple myeloma (HCC) OAB (overactive bladder) Prostate CA (HCC) Rheumatoid arthritis (HCC) PAST SURGICAL HISTORY Procedure Laterality Date BONE MARROW TRANSPLANT, ALLOGENEIC CYSTOSCOPY 11/2022 ESWL 2008 TRANSURETHRAL ELEC-SURG PROSTATECTOM 08/2022 UROLIFT PROSTATE PROCEDURE 04/2022 UVULECTOMY EXCISION OF UVULA Prior to Admission medications as of 04/13/25 1049 Medication Sig Last Dose Taking atorvastatin (LIPITOR) 20 mg tablet Take by mouth. 06/07/2025 Yes famotidine (PEPCID) 20 mg tablet Take 20 mg by mouth. 06/07/2025 Yes MEN'S MULTI-VITAMIN ORAL Multi Vitamin Mens Active 06/07/2025 Yes Cholecalciferol, Vitamin D3, (D3-2000) 50 mcg (2,000 unit) cap Take by mouth. 06/07/2025 Yes Lactobacillus acidophilus (PROBIOTIC) 10 billion cell cap probiotic as directed Active 06/07/2025 Yes LANTUS SOLOSTAR U-100 INSULIN 100 unit/mL (3 mL) 06/07/2025 Yes insulin lispro (HUMALOG KWIKPEN) 100 unit/mL pen Inject 8 Units subcutaneously three times daily before meals. Plus sliding scale. 06/07/2025 Yes aspirin 81 mg chewable tablet mg tab(s), Chewed, Daily, Refills(s) 0 06/03/2025 metFORMIN ER (GLUCOPHAGE XR) 500 mg 24 hr tablet oxybutynin ER (DITROPAN XL) 10 mg 24 hr tablet Unknown lisinopril (ZESTRIL) 10 mg tablet Take by mouth q 24 HR. Unknown docusate sodium (STOOL SOFTENER) 100 mg capsule Take 100 mg by mouth twice daily as needed for constipation. phosphorus (PHOSPHOROUS) 250 mg tablet Take 1 tablet by mouth three times daily. ALLERGIES Allergen Reactions Mirabegron Diarrhea, GI Upset Gabapentin Rash Tape [Adhesive Tape* Rash Objective PHYSICAL EXAM: The remainder of the physical exam is noncontributory. AIRWAY: Mouth opening greater than 3 fingerbreadths: Yes Neck Full Range of Motion: Yes LUNGS: Lungs clear to auscultation, Good diaphragmatic excursion CARDIAC: Normal S1 and S2; no rubs, murmurs, or gallops Assessment/Plan ASA Class: ASA Class: Patient with mild systemic disease Provisional Diagnosis/Treatment Plan: PCN exchange - routine Sedation Goal: Moderate SIGNATURE: Jaylen Jackson MD PATIENT NAME: Patsy Mills DATE: June 08, 2025 TIME: 10:15 [facility]IL[facility] [id number] EXCHANGE NEPH TUBE BILAT* * *Final Report* * * DATE OF EXAM: Jun 08 2025 11:31AM [facility] 7354 - IR EXCHANGE NEPH TUBE BILAT / PROCEDURE REASON: hydro * * * * Physician Interpretation * * * * PROCEDURE: GENITOURINARY CATHETER EXCHANGE - BILATERAL Procedural Personnel Attending physician(s): Jaylen Jackson III, M.D. Fellow physician(s): None Resident [...] interim. PROCEDURE SUMMARY - Target organ: Bilateral little traverse kidneys - Antegrade nephrostogram(s) via the existing [...] contrast injection. Pre-existing genitourinary catheter: 10 F [employer] nephrostomy Genitourinary catheter(s) placed: 10 F [employer] nephrostomy Findings: No significant hydroureteronephrosis was [...] Genitourinary intervention: None Location of intervention: Not applicabl (more content not included)...[facility] [id number] PROGHNO ID: [id number] Author: CHANEL JUARES RN Service: Nursing Author Type: Registered Nurse Type: Nursing Progress Note Filed: 06/12/2025 15:16 Note Text: Completed post procedure phone call. Patsy is feeling well and has returned to his baseline diet and activity. He did not some irritation around dressing site due to allevyn dressings. Told patient we will not use those dressing at next change.[facility] ID: [id number] Author: ARYA MILLS RN Service: Nursing Author Type: Registered Nurse Type: Nursing Progress Note Filed: 06/08/2025 10:03 Note Text: PATIENT EDUCATION TOPIC: PROCEDURE / SURGERY: Procedure/Surgery: Nephrostomy tube change PATIENT NAME: Patsy Mills PATIENT LOCATION: AV Rad Proc/AV Rad Proc READINESS TO LEARN COGNITIVE ABILITY: Alert and oriented MOTIVATION TO LEARN: Interested FAMILY SUPPORT: High - Very involved in pt care INSTRUCTION PROVIDED TO: Patient and Spouse PATIENT LEARNS BEST BY: Individual Instruction Written Instruction - Hand-outs Verbal Instruction FACTORS AFFECTING LEARNING: None PHYSICAL LIMITATIONS AFFECTING LEARNING: None LEARNING RESPONSE DIAGNOSIS: ADULT: chronic nephrostomy tubes PATIENT/FAMILY RESPONSE: Verbalizes understanding of: POST-PROCEDURE INSTRUCTIONS-Correct actions to take to reduce post procedure complications PRE-PROCEDURE INSTRUCTIONS-Correct action to take to follow pre-procedure instructions METHOD OF INSTRUCTION: Individual instruction Written instruction/Handouts Verbal instruction FOLLOW-UP PLAN: Patient instructed to call with any further issues Follow-up with Primary Care INSTRUCTIONAL AIDS USED: printed post sedation and post tube change instructions SUPPLEMENTAL MATERIAL PROVIDED TO PATIENT: instructions given to patient REFERRAL (RECOMMENDATION): None Electronically Signed By: Arya [facility] [id number] Telephone (AVXRPR) PATSY MILLS ([id number]) 1945 M Date Time Provider Department 05/31/25 GIANFRANCO MORRISON [facility] During your visit today, we recorded the following information about you: Gianfranco Morrison RN 05/31/2025 11:05 AM Signed RADIOLOGY PROCEDURE INSTRUCTIONS: You are scheduled for a Nephrostomy Tube Exchange, on May You are to arrive at 10:00 am and check in at [facility]: Radiology Outpatient Desk [facility]. Address: [place] [address] Diet: Do not eat any solid food after midnight the night before your procedure. You may drink clear liquids until 09:00 am the day of your procedure, which [...] If BG less < 200- don't take Allergies: Allergies reviewed: Yes Do you have a contrast dye allergy? No. Labs: Lab work needs to be drawn? No. [employer]/Transportation: How will you be arriving for your [...] or reschedule your procedure, please call our manager hotel: Aleisha Johansen and [place] [phone]; 8am - 4pm M-F If you have any additional questions please call: [facility] nurses desk at [phone] 8am - 4pm M-F. Allergies As of Date: 05/31/2025 Noted Allergy Reaction MIRABEGRON 06/27/2022 6 - Diarrhea 8 - GI Upset GABAPENTIN 08/20/2021 2 - Rash Date Reviewed: 04/13/2025 Reviewed by: Stanford Ho RN - Fully Assessed Reason for Visit: Radiology Pre Procedure Instructions [1506] Prescriptions as of 05/31/2025 - aspirin 81 mg chewable tablet mg [...] times daily. 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] 07/03/2022 Rheumatoid arthritis (HCC) [M06.9] 12/15/2022 Prostate cancer (HCC) [C61] 02/11/2023 Benign prostatic hyperplasia with urinary obstr*12/10/2021 Stage 3 chronic kidney disease (HCC) [N18.30] 05/08/2022 Diabetes (HCC) [E11.9] 02/11/2023 Hypercholesterolemia [E78.00] 09/04/2022 HTN (hypertension) [I10] 02/11/2023 Iron deficiency anemia [D50.9] 02/11/2023 Encounter Status:Closed by GIANFRANCO MORRISON on 05/31/25[facility] W Auto Differential panel (Bld)on [id number] (Bld) [#/Vol]0.0 10*3/uL0.0 - 0.2 10*3/uLNOMS HealthcareBasophils/100 WBC Manual cnt (Syn fld)0.6 %.[facility] HealthcareEosinophils (Bld) [#/Vol]0.3 10*3/uL0.0 - 0.45 10*3/uLNOMS Healthcare Eosinophils/100 WBC Manual cnt (Syn fld)3.7 %.[facility] HealthcareErythrocyte distribution width (RBC) [Ratio]15.8 %High12.0 - 14.8 %[facility] HealthcareHematocrit (Bld) [Volume fraction]32.6 %Low38.8 - 50.0 %[facility] HealthcareHemoglobin (Bld) [Mass/Vol]11.0 g/dLLow13.0 - 17.0 g/dLACADIA HEALTHCARE HealthcareInterpretation and review of laboratory resultsAbnormalACADIA HEALTHCARE HealthcareLymphocytes (Bld) [#/Vol]1.1 10*3/uL 1.00 - 4.8 10*3/uLNOMS HealthcareLymphocytes/100 WBC Manual cnt (Syn fld)13.7 %. [facility] CenterH (RBC) [Entitic mass]34.8 pg27.5 - 35.2 pgSSM DePaul Health CenterHC (RBC) [Mass/Vol]33.9 g/dL32.5 - 35.6 g/dLSSM DePaul Health CenterV (RBC) [Entitic vol] 102.8 tUZlgy57.5 - 101 fLACADIA HEALTHCARE HealthcareMonocytes (Bld) [#/Vol]0.5 10*3/uL0.0 - 0.8 10*3/uLNOMS HealthcareMonocytes+Macrophages/100 WBC Manual cnt (Syn fld)5.8 %.[facility] HealthcareNeutrophils (Bld) [#/Vol]6.0 10*3/uL1.8 - 7.7 10*3/uLNOMS HealthcareNeutrophils/100 WBC Manual cnt (Syn fld)76.2 %.[facility] HealthcareNRBC0.2 /100{WBC}0 - 0.5 /100{WBC}[facility] HealthcarePlatelet mean volume (Bld) [Entitic vol]8.5 fL6.6 - 10.1 fLACADIA HEALTHCARE HealthcarePlatelets (Bld) [#/Vol]215 10*3/uL150 - 450 10*3/uLNOThe Rehabilitation InstituteRBC LM.HPF (Urine sed) [#/Area]3.17 10*6/uLLow3.90 - 5.60 10*6/uLNOMS HealthcareWBC (Bld) [#/Vol]7.9 10*3/uL4.1 - 10.5 10*3/uLNOThe Rehabilitation InstituteWBC LM.HPF (Urine sed) [#/Area]7.9 [CFU]/mL4.1 - 10.5 [CFU]/mLNOMS [facility] HealthcareComplete Blood Count Auto Diffon 12-95-2818Qlfevfktb (Bld) [#/Vol]0.0 10*3/uLNormal0.0-0.2The [facility] Physician GroupComment on above:Result Comment: PERFORMED BY: [facility] [place] [address] PATHOLOGIST DOCK SUPERINTENDENT LUIS FELIPE MARSH M.D.Performed By: #### GLULS #### Point of Care testing ,Basophils/100 WBC (Bld)0.6 %Normal.The [facility] Physician GroupComment on above:Performed By: #### GLULS #### Point of Care testing ,Eosinophils (Bld) [#/Vol]0.3 10*3/uLNormal0.0-0.45The [facility] Comment on above:Performed By: #### GLULS #### Point of Care testing ,Eosinophils/100 WBC (Bld)3.7 %Normal.The [facility] Physician GroupComment on above:Performed By: #### GLULS #### Point of Care testing ,Erythrocyte distribution width (RBC) [Ratio]15.8 %High12.0-14.8The [facility] Physician GroupComment on above:Performed By: #### GLULS #### Point of Care testing ,Hematocrit (Bld) [Volume fraction]32.6 %Low38.8-50.0The [facility] Physician GroupComment on above:Performed By: #### GLULS #### Point of Care testing ,Hemoglobin (Bld) [Mass/Vol]11.0 g/dLLow13.0-17.0The [facility] Comment on above:Performed By: #### GLULS #### Point of Care testing ,Lymphocytes (Bld) [#/Vol]1.1 10*3/uLNormal1.00-4.8The [facility] Comment on above:Performed By: #### GLULS #### Point of Care testing ,Lymphocytes/100 WBC (Bld)13.7 %Normal.The [facility] Physician GroupComment on above:Performed By: #### GLULS #### Point of Care testing ,MCH (RBC) [Entitic mass]34.8 tbYlxxza72.5-35.2The [facility] Comment on above:Performed By: #### GLULS #### Point of Care testing ,MCV (RBC) [Entitic vol]102.8 sDGsqj05.5-101The [facility] Physician GroupComment on above:Performed By: #### GLULS #### Point of Care testing ,Mean Corpuscular HGB Conc33.9 g/sPQuduyh16.5-35.6The [facility] Comment on above:Performed By: #### GLULS #### Point of Care testing ,Monocytes (Bld) [#/Vol]0.5 10*3/uLNormal0.0-0.8The [facility] Comment on above:Performed By: #### GLULS #### Point of Care testing ,Monocytes/100 WBC (Bld)5.8 %Normal.The [facility] Physician GroupComment on above:Performed By: #### GLULS #### Point of Care testing ,Neutrophils (Bld) [#/Vol]6.0 10*3/uLNormal1.8-7.7The [facility] Comment on above:Performed By: #### GLULS #### Point of Care testing ,Neutrophils/100 WBC (Bld)76.2 %Normal.The [facility] Physician GroupComment on above:Performed By: #### GLULS #### Point of Care testing ,NRBC%0.2 /100{WBC}Normal0-0.5The [facility] Physician GroupComment on above: Performed By: #### GLULS #### Point of Care testing ,Platelet mean volume (Bld) [Entitic vol]8.5 fLNormal6.6-10.1The [facility] Physician GroupComment on above:Performed By: #### GLULS #### Point of Care testing ,Platelets (Bld) [#/Vol]215 10*3/xIVqkpbx115-515Zcf [facility] Comment on above:Performed By: #### GLULS #### Point of Care testing ,RBC (Bld) [#/Vol]3.17 10*6/uLLow3.90-5.60The [facility] Physician [facility] Hospital Of MeridianComment on above:Performed By: #### GLULS #### Point of Care testing ,WBC (Bld) [#/Vol]7.9 10*3/uLNormal4.1-10.5The [facility] Physician GroupComment on above:Performed By: #### GLULS #### Point of Care testing ,White Blood Count7.9 [CFU]/mLNormal4.1-10.5The [facility] Physician GroupComment on above:Performed By: #### GLULS #### Point of Care testing ,C Urineon 24-11-7578Qbedvkgr identified Cx Nom (U)Microbiology PROCEDURE: Urine Culture [R1] SOURCE: U Cath BODY SITE: COLLECTED DATE/TIME: 05/16/2025 12:55 EDT RECEIVED DATE/TIME: 05/16/2025 15:01 EDT START DATE/TIME: 05/16/2025 15:02 EDT FREE TEXT SOURCE: Nephdiamond Issa MD, Orquidea Issa MD, Orquidea Taylor FINAL REPORTS Final Report [] Verified Date/Time: 05/19/2025 11:25 EDT 50,000 cfu/ml Escherichia coli isolated. 5,000 cfu/ml Jessica albicans Presumptive isolated. SUSCEPTIBILITY RESULTS LEGEND: S=Susceptible, N/R=Not Reported, Blank=Data not available, or drug not advisable or tested, I=Intermediate, ESBL=Extended spectrum beta-lactamase, R=Resistant, TFG=Thymidine-dependent strain, RADHA=Beta-lactamase positive, DEEPA=mcg/m;(mg/L), S*=Predicted susceptible interp, R*=Predicted resistant interp EC Antibiotic DEEPA Dilutn DEEPA Interp Ampicillin <=8 S Ampicillin/ <=8/4 S Sulbactam Cefazolin <=2 S Cefepime <=2 S Ceftazidime/ <=8 S Avibactam Ceftriaxone <=1 S Cefuroxime <=4 S Ciprofloxacin <=0.25 S Ertapenem <=0.5 S Gentamicin <=2 S Levofloxacin <=0.5 S Meropenem <=1 S Nitrofurantoin <=32 S Piperacillin/ <=8 S Tazobactam Tetracycline <=4 S Tobramycin <=2 S Trimethoprim/ <=2/38 S Sulfa Performing Locations R1: This test was performed at: [facility], [address] [place] [address], [id number] , , ZkndtpAlxdmmEast Liverpool City HospitalComment on above:Performed By: #### [id number] #### [facility] [address] [place] [id number] OR Intraoperative Recordon [id number] OR Intraoperative RecordMain OR Intraoperative Record IntraOp Document Type FT Summary Primary Physician: Orquidea Issa MD Finalized Date/Time: 05/17/25 09:35:20 Pt. Name: PATSY MILLS /Sex: 1945 Male Med Rec #: [id number] Physician: Orquidea Issa MD Financial #: [id number] Pt. Type: A Room/Bed: [place] [address] Admit/Disch: 05/16/25 12:01:36 - 05/16/25 15:35:00 Institution: Case Times FT Entry 1 Patient Times In Room 05/16/25 13:13:00 Out Room 05/16/25 13:49:00 Procedure Times Start 05/16/25 13:27:00 Stop 05/16/25 13:45:00 Anesthesia Times Start 05/16/25 13:13:00 Stop 05/16/25 13:49:00 Last Modified By: Kelsey Daniels Ii 05/16/25 13:55:02 Case Attendance FT Entry 1 Entry 2 Entry 3 Case Attendee Ramesh Hoyt MD, Kelsey Vale Ii Role Performed Anesthesiologist Surgeon - Primary Qa Automation Engineer - Primary Java Security Engineer Time In 05/16/25 13:13:00 05/16/25 13:13:00 05/16/25 13:13:00 Time Out 05/16/25 13:49:00 05/16/25 13:49:00 05/16/25 13:49:00 Procedure CYSTOSCOPY(Bilateral) CYSTOSCOPY(Bilateral) CYSTOSCOPY(Bilateral) Comments 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 Last Modified By: Kelsey Daniels Ii, Alfons Ii F Letrondo, Alfons Ii F 05/16/25 14:01:47 05/16/25 14:01:47 05/16/25 14:01:47 Entry 4 Entry 5 Case Attendee Jaden Giordano(R), Ammy Payne Role Performed Scrub - Primary Medical Intern Time In 05/16/25 13:13:00 05/16/25 13:40:00 Time Out 05/16/25 13:49:00 05/16/25 13:42:00 Procedure CYSTOSCOPY(Bilateral) CYSTOSCOPY(Bilateral) Comments Last Modified By: Kelsey Daniels Ii, Alfons Ii F 05/16/25 14:01:47 05/16/25 14:01:47 Perioperative Protocols FT Pre-Care Text: Implements protective measures prior to operative or invasive procedure, confirms identity before the operative or invasive procedure, verifies operative procedure, surgical site, and laterality Entry 1 Procedure(s) CYSTOSCOPY(Bilateral) Patient Identity Birthday, ID Band Verified (select at Check, Patient least 2): Participation Consents / H and P Anesthesia Consent, Operative Site N/A Verified H&P, Surgery/Procedure Marking Verified Consent Surgical Site Yes Laterality Verified Yes Verified Procedure Verified Yes Correct Patient Yes Position Verified Availability Equipment, Medication, Prep Dry No Verified (If X-ray Applicable) PreOp Antibiotic Yes Time Out Ramesh Hoyt, Diego Fournier MD, Orquidea Taylor, Kelsey Daniels Ii, Jaden Giordano Time Out Complete 05/16/25 13:25:00 Outcomes Met? Yes Last Modified By: Kelsey Daniels Ii 05/16/25 13:56:52 Post-Care Text: The patient is free from signs and symptoms of injury caused by extraneous objects Allergy Information FT Pre-Care Text: Verifies allergies Entry 1 Allergies Reviewed? Yes Allergies Reviewed Self/Patient With Outcomes Met? Yes Last Modified By: Kelsey Daniels Ii 05/16/25 13:57:09 Post-Care Text: The patient received appropriate medication(s) safely administered during the perioperative period Surgical Procedures FT Entry 1 Procedure Description Procedure CYSTOSCOPY Modifiers Bilateral Surgeon Description CYSTO, BILATERAL STENT REMOVAL, SUPRAPUBIC CATHETER EXCHANGED Primary Procedure Yes Primary Surgeon Diego RICKS, Orquidea Taylor Start 05/16/25 13:27:00 Stop 05/16/25 13:45:00 Anesthesia Type General Surgical Service Urology Wound Class 2 - Clean-Contaminated Last Modified By: Kelsey Daniels Ii 05/16/25 14:16:23 General Case Data FT Pre-Care Text: Classifies surgical wound, implements aseptic technique, initiates traffic control Entry 1 Case Information OR OR 1 FT Case Level Level 3 Wound Class 2 - Clean-Contaminated Specialty Urology ASA Class 3 Preop Diagnosis URETERAL STRICTURE Postop Same As Preop Yes Postop Diagnosis URETERAL STRICTURE Outcomes Met? Yes Last Modified By: Cele Dewitt CST 05/17/25 09:35:09 Post-Care Text: The patient is free from signs and symptoms of infection Skin Assessment (Pre Procedure) FT Pre-Care Text: Implements protective measures to prevent skin/ tissue injury due to thermal or mechanical sources Evaluates for signs and symptoms of physical injury to skin and tissue Entry 1 Skin Integrity Intact, [place], Warm, & Skin Abnormality No Dry Outcomes Met? Yes Last Modified By: Kelsey Daniels Ii 05/16/25 13:57:45 Post-Care Text: The patient is free from signs and symptoms of injury caused by extraneous objects Patient Positioning FT Pre-Care Text: Identifies physical alterations that require additional precautions for procedure-specific positioning, verifies presence of prosthetics or corrective devices, positions the patient, evaluates the patient for signs and symptoms of injury as a result of positioning Entry 1 Procedure CYSTOSCOPY(Bilateral) Body Position Low Lithotomy Feet Uncrossed? Yes Left Arm Position Resting at Side Right Arm Position Resting (more content not included)...[facility].UA With Cult Reflexon [id number] (U)YELLOWNormalYellowGrant HospitalComment on above:Performed By: #### [id number] ####[facility] [address] [place], [place] [address]Dmedclp Ql (U) NegativeNormalNegativeGrant HospitalComment on above:Performed By: #### [id number] ####[address] [place], [place] [address]QD Blood3+AbnormalNegativeGrant HospitalComment on above: Performed By: #### [id number] ####[facility] [address] [place], [place] [address]BY Bacteria2+ /HPFAbnormalTraceGrant HospitalComment on above:Performed By: #### [id number] ####[facility] [address] [place], [place] [address]HN ClarityCLOUDYAbnormalClear Grant HospitalComment on above:Performed By: #### [id number] ####[facility] [address] [place], [place] [address]KU Glucose1+ mg/dLAbnormalNegativeGrant HospitalComment on above: Performed By: #### [id number] ####[address] [place], [place] [address]ZF Leuk Est2+ CD:[id number] Titus Medical CenterComment on above:Performed By: #### [id number] ####[address] [address]VP Nitrite NegativeNormalNegativeGrant HospitalComment on above:Performed By: #### [id number] ####[address] [address]DP pH6.0Invalid Interpretation Code5.0-9.0[facility] Comment on above:Performed By: #### [id number] ####[address] [address]VR Protein3+AbnormalNegativeGrant HospitalComment on above:Performed By: #### [id number] ####[address] [address]GY RBC4-20Normal 0-3[facility] HospitalComment on above:Performed By: #### [id number] ####[address] [address]RR Spec DescCatheterNNationwide Children's HospitalComment on above:Result Comment: Nephro TubePerformed By: #### [id number] ####[address] [address]XL Spec Grav1.020Invalid Interpretation Code1.005-1.030Grant HospitalComment on above: Performed By: #### [id number] ####[address] [address]JI Squam Epithelial0-2NormalGrant HospitalComment on above:Performed By: #### [id number] ####[address] [address]DB Urobilinogen0.2 EU/dLNormal 0.0-1.0Grant HospitalComment on above:Performed By: #### [id number] ####[facility] [address] [place], [place] [address]WY WBC>18Fxopxxhg4-5ZosnncBlanchard Valley Health System Bluffton HospitalComment on above:Performed By: #### [id number] ####[facility] [address] [place], [place] [address]LT Yeast1+ /HPFAbnormalGrant HospitalComment on above: Performed By: #### [id number] ####[facility] [address] [place], [place] [address]Nagootulpwcu (U) [Mass/Vol]NegativeNormalNegative Grant HospitalComment on above:Performed By: #### [id number] ####[facility] [address] [place] [address] Capillary Glucose POCon [id number] [Mass/Vol]206 mg/wYUzdm89-69LgbmihGrant HospitalComment on above:Result Comment: Cleaned MeterPerformed By: #### [id number] #### [facility] [address] [place], [place] [address]Bnnsmocdk Instructionson [id number] Instructions Discharge Instructions PATSY MILLS :1945 Visit Date:05/16/2025 Inpatient Discharge Instructions Your Care Team Admitting Physician - Orquidea Issa MD Referring Physician - Orquidea Issa MD Reason for Your Visit Encounter for other preprocedural examination Your Diagnosis Encounter for other preprocedural examination, Preoperative clearance Bilateral hydronephrosis Encounter for removal of ureteral stent Incomplete bladder emptying Noncompliant bladder Prostate cancer Tests Performed Urine Culture -- Results Pending -- XR Fluoroscopy Up to 1 Hour -- Results Pending -- Please visit your patient portal for your results or contact your primary care physician. This Is Your Medications List Non-Formulary Medication (D-mannose) acetaminophen (acetaminophen 500 mg Tab) aspirin (aspirin 81 mg Oral EC Tab) atorvastatin (atorvastatin 20 mg Tab) bifidobacterium-lactobacillus (Probiotic + Colostrum) cholecalciferol (Vitamin D3 2000 intl units) cranberry (Cranberry) cyanocobalamin (Vitamin B-12 100 mcg oral tablet) darbepoetin raymond (Aranesp) docusate (Dulcolax Stool Softener) famotidine (famotidine 20 mg Tab) insulin glargine (Lantus insulin) insulin lispro (Humalog) multivitamin with iron (Gentle Iron oral capsule) nitrofurantoin (Macrobid 100 mg Cap) oxybutynin (oxybutynin 10 mg ER Tab) Procedure History Placement of nephrostomy catheter, percutaneous, including diagnostic nephrostogram and/or ureterogram when performed, imaging guidance (eg, ultrasound and/or fluoroscopy) and all associated radiological supervision and interpretation (03/16/2025), Cystoscopy (03/07/2025), Change of suprapubic tiffany ter (07/28/2024), Cystoscopic insertion of ureteric stent (06/04/2024), Transperineal needle biopsyof prostate (06/01/2024), Cystoscopic insertion of ureteric stent (02/03/2024), Cystoscopic replacement of ureteric stent (06/10/2023), ESWL of kidney (06/10/2023), Cystostomy and insertion of suprapu bic tube (03/05/2023), Cystoscopic insertion of ureteric stent (12/10/2022), TURP - Transurethral resection of prostate (08/27/2022), Transurethral insertion of prostatic urethral lift implant (05/05/2022), Cystoscopic removal of ureteric stent (08/20/2012), Cystoscopic ureteroneocystostomy with insertion of ureteral stent (08/05/2012), ESWL of kidney (03/02/2009), Dental surgical procedure, heel spur, Stem cell transplant. What to do next Instructions From Your Doctor Event Name Event Result Discharge Activity Resume normal activities in 24 hours, Expect mild pain, Expect minimal amount of drainage and/or bleeding, Activity as tolerated Discharge Restrictions No driving for 24 hrs Discharge Diet(s) Regular Call Your Doctor For Persistent or heavy bleeding, Temperature above 101.5 degrees Discharge Instructions Discharge Instructions New Follow Up Appointments after Discharge Follow Up with Orquidea Issa When: Comments: Office to call to schedule your follow up in 1 month for possible SPT removal Where: [address] [place] [address] [phone] Business (1) Medications What How Much When Instructions Next Dose Unchanged acetaminophen (acetaminophen 500 mg Tab) 1 Tablets By Mouth Every 4 hours as needed for for pain Unchanged aspirin (aspirin 81 mg Oral EC Tab) 1 Tablets By Mouth Every day Unchanged atorvastatin (atorvastatin 20 mg Tab) 1 Tablets By Mouth Every day Unchanged bifidobacterium-lactobacillus (Probiotic + Colostrum) By Mouth Every day [...] 2 times a day take 1 cap morningof cath change and 12hrs after Unchanged Non-Formulary Medication (D-mannose) Unchanged oxybutynin (oxybutynin 10 mg ER Tab) 1 Tablets By Mouth Every day Test Results No qualifying data available. Allergies Myrbetriq (Multiple open mouth wounds) Latex (Rash) gabapentin (Unknown, Rash) lisinopril (Unknown, DRY COUGH, Cough) Problems Ongoing - Any problem that you are currently receiving treatment for. Asymptomatic microscopic hematuria Bilateral hydronephrosis BPH with urinary obstruction Diabetes Dysuria Family history of prostate cancer in father Glycosuria (more content not included)...[facility] HospitalComment on above: Result Comment: Electronically Signed By: Susana RATLIFF, Rabia Randall\Date and Time Signed: 05/16/25 14:12 EDTH&P Updateon 05-16-2025H&P UpdateH&P Update Patient: PATSY MILLS Age: 80 years Sex: Male : 1945 Associated Diagnoses: None Author: Orquidea Issa MD Basic Information I have reviewed prior notes, spoke with patient, no changes to history. Patient elects to proceed with surgery as planned. Health Status Procedure history: Placement of nephrostomy catheter, percutaneous, including diagnostic nephrostogram and/or ureterogram when performed, imaging guidance (eg, ultrasound and/or fluoroscopy) and all associated radiological supervision and interpretation ([id number]) on 03/16/2025 at 80 Years. Cystoscopy, stent exchange, suprapubic cath exchange ([id number]) on 03/07/2025 at 80 Years. Cysto with bilateral stent exchange, suprapubic catheter exchange, ureteroscopy, right retrograde pyelogram ([id number]) on 07/28/2024 at 79 Years. Comments: 08/26/2024 15:18 Cornelia Escalona done at [facility] Cystoscopy, Left RPG, Left ureteral stent placement ([id number]) on 06/04/2024 at 79 Years. Cystoscopy, Right RPG, Ureteral stent exchange, Suprapubic tube exchange, Transperineal needle biopsy of prostate, Transrectal ultrasound of prostate ([id number]) on 06/01/2024 at 79 Years. Cystoscopy, Right RPG, Ureteral stent exchange, SPT exchange ([id number]) on 02/03/2024 at 78 Years. Rt Ureteral Stent Exchange ([id number]) on 06/10/2023 at 78 Years. Lt ESWL ([id number]) on 06/10/2023 at 78 Years. Cystostomy and insertion of suprapubic tube ([id number]) on 03/05/2023 at 78 Years. Cystoscopic insertion of ureteric stent ([id number]) on 12/10/2022 at 77 Years. TURP - Transurethral resection of prostate ([id number]) on 08/27/2022 at 77 Years. Transurethral insertion of prostatic urethral lift implant ([id number]) on 05/05/2022 at 77 Years. Cysto/Lt Stent Removal ([id number]) on 08/20/2012 at 67 Years. Cysto/Lt RG/ Stone Basket/Lt Stent Placement ([id number]) on 08/05/2012 at 67 Years. LT ESWL ([id number]) on 03/02/2009 at 64 Years. heel spur. Stem cell transplant ([id number]). Dental surgical procedure ([id number]). Social History Social & Psychosocial Habits Alcohol 05/16/2025 Type: Beer Frequency: 1-2 times per year Use: Past 05/16/2025 Risk Assessment: Denies Alcohol Use Substance Abuse 05/16/2025 Risk Assessment: Denies Substance Abuse Tobacco 05/16/2025 Risk Assessment: Denies Tobacco Use 05/16/2025 Tobacco Use: quit 28 years Smokeless tobacco use: Never Type: Cigarettes Concerns about tobacco use in household: No Smoking Cessation Yes Comment: pt quit smoking 20 years ago - 04/21/2019 08:37 - Mario Hayden Allergies: Allergic Reactions (Selected) Severe Myrbetriq- Multiple open mouth wounds. Severity Not Documented Gabapentin- Rash and unknown. Latex- Rash. Lisinopril- Cough, unknown and dry cough. Current medications: (Selected) Inpatient Medications Ordered Lactated Ringers IV Naila 1000 mL 1,000 mL: 1,000 mL, IV, 150 mL/hr, Routine, Start date 05/16/25 12:00:00 EDT, 6.7 hour(s), Total volume (mL): 1,000, 95.2 kg, 2.14, m2 cefazolin additive + Sodium Chloride 0.9% intravenous solution 50 mL: 2 gm = 1 EA, Powder-Inj, IV Piggyback, Once, Stop date 05/16/25 12:00:00 EDT, Routine, Start date 05/16/25 12:00:00 EDT, 100 mL/hr, Infuse over 30 minute(s), HOLD if patient has history of anaphylactic allergic reaction to Penicillin. Prescriptions Prescribed Macrobid 100 mg Cap: 100 mg = 1 cap(s), Oral, BID, take 1 cap morning of cath change and 12hrs after, # 30 cap(s), Refills(s) 1, Pharmacy: [id number], cm, 07/22/23 9:22:00 EST, Height/Length Dosing, [...] Problems Asymptomatic microscopic hematuria / SNOMED CT 3149223816 / Confirmed Bilateral hydronephrosis / SNOMED CT 680963241 / Confirmed BPH with urinary obstruction / SNOMED CT 6241798609 / Confirmed Diabetes / SNOMED CT 164255251 / Confirmed Dysuria / SNOMED CT 83983010 / Confirmed Family history of prostate cancer in father / SNOMED CT 253 (more content not included)...[facility] HospitalComment on above:Result Comment: Electronically Signed By: Diego RICKS, Orquidea Brock.br\Date and Time Signed: 05/16/25 13:06EDTInpatient Patient Summaryon [id number] Patient SummaryInpatient Patient Summary [address] [address] [facility] Clinical Discharge Instructions PERSON INFORMATION Name: PATSY MILLS PHYSICIANS Admitting Physician: Orquidea Issa MD Attending Physician: Orquidea Issa MD PCP: HELEN OCHOA MD Discharge Diagnosis: Bilateral hydronephrosis; Encounter for removal of ureteral stent; Incomplete bladder emptying; Noncompliant bladder; Prostate cancer Comment: PATIENT EDUCATION INFORMATION Instructions: EU - Cystoscopy with Stent Removal Discharge Instructions (CUSTOM); Post Op Patient Instructions - FT (CUSTOM) Medication Leaflets: Follow up: With: Address: When: Orquidea Issa [address] [place] [address] [phone] Business (1) Comments: Office to call to schedule your follow up in 1 month for possible SPT removal MEDICATION LIST Medications to Continue with No Changes Other Medications acetaminophen (acetaminophen 500 mg Tab) 1 Tablets By Mouth every 4 hours as needed for pain. aspirin (aspirin 81 mg Oral EC Tab) 1 Tablets By Mouth every day. atorvastatin (atorvastatin 20 mg Tab) 1 Tablets By Mouth every day. bifidobacterium-lactobacillus (Probiotic + Colostrum) By Mouth every day. [...] Tablets By Mouth every day. Refills: 0. Comment:[facility] Recordon [id number] OR PACU I RecordMain OR PACU I Record PACU Phase I Document Type FT Summary Primary Physician: Orquidea Issa MD Finalized Date/Time: 05/16/25 17:30:09 Pt. Name: GENE PATSYJUVE Andrea./Sex: 1945 Male Med Rec #: [id number] Physician: Orquidea Issa MD Financial #: [id number] Pt. Type: A Room/Bed: [place] [address] Admit/Disch: 05/16/25 12:01:36 - 05/16/25 15:35:00 Institution: Case Times PACU I FT Pre-Care [...] to medications Entry 1 In PACU I 05/16/25 13:50:00 Discharge from PACU 05/16/25 14:20:00 I Outcomes Met? Yes Last Modified By: Debbie Posey RN 05/16/25 17:29:55 Post-Care Text: The patient demonstrates knowledge of the expected response to the operative or invasive procedure The patient's care is consistent with the individualized perioperative plan of care The patient's rightto privacy is maintained The patient's value system, [...] with or improved from baseline levels established preoperativelyThe patient's cardiovascular status is consistent with or improved from baseline levels established preoperatively The patient's cardiovascular status is consistent with or improved from baseline levels established preoperatively The patient demonstrates and/or reports adequate pain control throughout the perioperative period The patient received appropriate medication(s), safely administered during the perioperativeperiod Acuity Level PACU I FT Entry 1 Start Time 05/16/25 13:50:00 Stop Time 05/16/25 14:20:00 Acuity Level Acuity Level I Last Modified By: Debbie Posey RN 05/16/25 17:30:08 Finalized By: Debbie Posey RN Document Signatures Signed By: Debbie Posey RN 05/16/25 17:30[facility] II Recordon [id number] OR PACU II RecordMain OR PACU II Record PACU Phase II Document Type FT Summary Primary Physician: Orquidea Issa MD Finalized Date/Time: 05/16/25 15:53:33 Pt. Name: PATSY MILLS Barron Herrera/Sex: 1945 Male Med Rec #: [id number] Physician: Orquidea Issa MD Financial #: [id number] Pt. Type: A Room/Bed: [facility] Admit/Disch: 05/16/25 12:01:36 - Institution: Case Times PACU II FT [...] and monitors body temperature Evaluates postoperative respiratory statusEvaluates postoperative cardiac status Evaluates postoperative neurological status Assesses pain control, collaborated in initiating patient-controlled analgesia and implements alternative methods of pain control Verifies allergies, administers prescribed medications and solutions, evaluates response to medications Entry 1 In PACU II 05/16/25 14:20:00 Discharge from PACU 05/16/25 15:35:00 II Outcomes Met? Yes Last Modified By: Rabia Meza RN 05/16/25 15:53:30 Post-Care Text: The patient demonstrates knowledge of the expected response to the operative or invasive procedure The patient's care is consistent with the individualized perioperative plan of care The patient's rightto privacy is maintained The patient's value system, [...] with or improved from baseline levels established preoperativelyThe patient's cardiovascular status is consistent with or improved from baseline levels established preoperatively The patient's neurological status is consistent with or improved from baseline levels established preoperatively The patient demonstrates and/or reports adequate pain control throughout the perioperative period The patient received appropriate medication(s), safely administered during the perioperativeperiod Finalized By: Rabia Meza RN Document Signatures Signed By: Rabia Meza RN 05/16/25 15:53[facility] Preoperative Recordon [id number] OR Preoperative RecordMain OR Preoperative Record PreOp Document Type FT Summary Primary Physician: Orquidea Issa MD Finalized Date/Time: 05/16/25 13:55:15 Pt. Name: PATSY MILLS/Sex: 1945 Male Med Rec #: [id number] Physician: Orquidea Issa MD Financial #: [id number] Pt. Type: A Room/Bed: [facility] Admit/Disch: 05/16/25 12:01:36 - Institution: Case Times PreOp FT Pre-Care Text: Verifies consent for planned procedure, identifies individual values and wishes concerning care, includes family members in perioperative teaching Entry 1 Patient Times. In Pre Surgery 05/16/25 12:05:00 Out Pre Surgery 05/16/25 13:11:00 Outcomes Met? Yes Last Modified By: Kelsey Daniels Ii 05/16/25 13:55:14 Post-Care Text: The patient participates in decisions affecting his or her perioperative plan of care Finalized By: Kelsey Daniels Ii Document Signatures Signed By: Kelsey Daniels Ii 05/16/25 13:55NoUniversity Hospitals Geauga Medical CenterOperative Reporton [id number] ReportOperative Report Patient: PATSY MILLS Age: 80 years Sex: Male : 1945 Associated Diagnoses: None Author: Orquidea Issa MD Procedure Procedure Date: 05/16/2025. Confirmed: patient, procedure, side, site, safety procedures followed. Performed by: Orquidea Issa MD, anesthesiologist (Ramseh Mohr [facility]). Type of procedure: 1. Cystoscopy, bilateral ureteral stent removal 2. Suprapubic catheter exchange . Informed consent: signed by patient. Indication: 80-year-old male with a complex urologic history including noncompliant bladder with subsequent bilateral hydronephrosis and CKD status post chronic indwelling ureteral stents and SP tubeplacement. He recently had bilateral nephrostomy tubes placed to help remove indwelling catheters. He presents today for cystoscopy, bilateral stent removal and SP tube exchange under anesthesia, perpatient request. He also notes his nephrostomy tube sutures have come undone and requests resecuring of tubes today. Risks were discussed including but not limited to bleeding, pain, infection, damage to surrounding structures and need for additional procedures.. Findings: Very small, noncompliant bladder. Patent prostatic urethra, fixed bladder neck. Mild white fibrinous debris within bladder. Bilateral stents removed with mild difficulty due to fixed bladder neck. 16 Australian silicone Gunn catheter exchanged without difficulty, 8 cc in balloon. Intraoperative KUB confirms indwelling nephrostomy tubes in appropriate position after stent is removed. Bilateral nephrostomy tubes secured with 3-0 silk suture.. Procedure tolerated: well. Specimen: None. Complications: None. PROCEDURE IN DETAIL: After the risks, benefits, indications, alternatives and expectations of the procedure were reviewed with the patient and informed consent was obtained, the patient was taken to operative suite and placed in the supine position. Sequential compression devices were placed on bilateral lower extremities. MAC anesthesia was induced and the patient was transitioned to the lithotomy position and prepped and draped in the usual sterile fashion for cystoscopy. A preoperative dose of antibiotics was given. A timeout was observed prior to initiating the procedure. Lidocaine gel was inserted into the urethra and bladder. We began the procedure using a 22.5 Australian rigid cystoscope, 30 degree lens, and inserted this intothe bladder without any issue. We noted a normal appearance of the urethra en route to the bladder,findings as above. Once inside the bladder, a cystoscopic examination revealed no bladder tumors, lesions, stones. Attention was turned to the right indwelling ureteral stent. Flexible graspers through the scope were used to remove the stent in its entirety. Attention was turned to the left indwelling stent and the same was repeated. Under direct vision the indwelling 16 Australian suprapubic catheter was removed and a new 16 Australian silicone suprapubic catheter was inserted without difficulty, 8 ccin balloon given very small bladder capacity. There was mild hematuria following stent removal and therefore now in SP tube. Irrigated easily. A spot fluoroscopy image was performed to confirm adequate curl and position of existing bilateral nephrostomy tubes. The bladder was drained and the cystoscope removed. Bilateral nephrostomy tube dressings were exchanged and a 3-0 silk suture was placed to secure the nephrostomy tubes in position. The procedure was then concluded and the patient was awakened from general anesthesia and sent to the PACU in satisfactory condition. CULTURES TAKEN: none PATIENT CONDITION: Stable and extubated PLAN: -Follow-up on urine cultures obtained from bilateral nephrostomy tubes preop, per patient request given very thick, cloudy appearance. If positive will prescribe course of antibiotics to take prior to next nephrostomy tube exchange on 06/01. - Follow-up in 1 month to evaluate SP tube output and determine removal.. Impression and Plan Diagnosis Encounter for removal of ureteral stent (MBN52-TV Z46.6, Discharge, Medical). Noncompliant bladder (XNY57-QS N31.9, Discharge, Medical). 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 Incomplete bladder emptying (PWD02-ZG R39.14, Discharge, Medical). Bilateral hydronephrosis (ZKC71-HA N13.30, Discharge, Medical). Diagnosis Encounter for removal of ureteral stent (MGU64-BE Z46.6, Discharge, Medical). Ureteral stricture (DBD66-ER N13.5, Working, Medical). Noncompliant bladder (IGA31-FB N31.9, Discharge, Medical). Incomplete bladder emptying (LLG86-EV R39.14, Discharge, Medical). Bilateral hydronephrosis (STY76-GW N13.30, Discharge, Medical).[facility] HospitalComment on above:Result Comment: Electronically Signed By: Orquidea Issa MD\.br\Date and Time Signed: 05/16/25 14:20EDTOutpatient Surgery Discharge Instructionon [id number] Surgery Discharge Instruction Outpatient Surgery Discharge Instruction [place] [id number] Patient Discharge Instructions PERSON INFORMATION Name: PATSY MILLS Date of : 1945 Current Date: 05/16/2025 14:09:54 PHYSICIANS Admitting Physician: Orquidea Issa MD Discharge Diagnosis: Bilateral hydronephrosis; Encounter for removal of ureteral stent; Incomplete bladder emptying; Noncompliant bladder; Prostate cancer PATSY MILLS Barron has been given the following list of follow-up instructions, prescriptions, and patient education materials: PATIENT FOLLOW-UP INFORMATION Diet: Regular Discharge Activity: Resume normal activities in 24 hours, Expect mild pain, Expect minimal amount of drainage and/or bleeding, Activity as tolerated Discharge Restrictions: No driving for 24 hrs Call Your Doctor For: Persistent or heavy bleeding, Temperature above 101.5 degrees IF UNABLE TO CONTACT YOUR PHYSICIAN AND YOU FEEL IT IS AN EMERGENCY, GO TO THE NEAREST EMERGENCY ROOM OR CALL 911 IGENE DONALD G, have received the attached patient education materials/instructions and have verbalized understanding: May we do a follow up call? Yes No I was present when discharge instructions were given Patient Signature Date Clinican/Nurse Signature Date Follow up: With: Address: When: Orquidea Issa [address] [place], [place] [id number] [phone] Business (1) Comments: Office to call to schedule your follow up in 1 month for possible SPT removal Pharmacy Information: You may receive a survey from [employer] asking you to rate your care experience. Your feedback is important and will help us understand what we do well and how we can improve the quality of care we provide to you, your loved ones and our community. It???s an honor to serve you. Thank you for choosing [facility] HERE ARE THE MEDICATION CHANGES THAT OCCURRED DURING YOUR HOSPITAL STAY Medications to Continue with No Changes Other Medications acetaminophen (acetaminophen 500 mg Tab) 1 Tablets By Mouth every 4 hours as needed for pain. aspirin (aspirin 81 mg Oral EC Tab) 1 Tablets By Mouth every day. atorvastatin (atorvastatin 20 mg Tab) 1 Tablets By Mouth every day. bifidobacterium-lactobacillus (Probiotic + Colostrum) By Mouth every day. [...] day. Refills: 0. PATIENT EDUCATION INFORMATION Instructions: Cystoscopy with Stent Removal ??? Voiding after the procedure: there may be some pain, burning, urgency, frequency and blood tinged urine following the procedure. These symptoms usually resolve within 2-5 days. Drink the amount of fluid it takes to keep the urine pink to yellow or clear in color. Drinking enough water and fluids will help to ease any discomfort after your procedure. ??? If you are having problems that seem out of the ordinary, please call. ??? If unable to contact your physician and you feel it is an emergency, go to the nearest emergency room or call 911 ??? Diet ??? you may resume your normal diet. ??? Activity ??? you may resume your normal activities ??? Call if you have a fever over 100 degrees. Medication Leaflets:[facility] HospitalErythrocyte distribution width Auto (RBC) [Ratio]Ordered By: Price Crain on 05-43-1095Ydsejadegrr distribution width (RBC) [Ratio]14.6 %11.0-15.0[facility] Glomerular filtration rate (GFR) estimation in non- AmericanOrdered By: Price Crain on 53-41-5383JFE/1.73 sq M.predicted among non-blacks MDRD (S/P/Bld) [Vol rate/Area]24 mL/min/{1.73_m2}Low>=60 mL/min/1.73m 2FChildren's Hospital for RehabilitationHematocrit Auto (Bld) [Volume fraction]Ordered By: Price Crain on 12-85-5590Xbcujpxmtm (Bld) [Volume fraction]33.1 %Low42.0-54.0 [facility] JacksonHemoglobin [Mass/volume] in BloodOrdered By: Price Crain on 25-84-3593Wsljoveozr (Bld) [Mass/Vol]10.8 g/dLLow14.0-18.0 [facility] JacksonLeukocytes [#/volume] corrected for nucleated erythrocytes in Blood by Automated counOrdered By: Price Crain on 45-53-9564LZN corrected for nucl RBC Auto (Bld) [#/Vol]9.2 10 3/uL4.0-11.0[facility] CenterH Auto (RBC) [Entitic mass]Ordered By: Price Crain on 29-51-4920HUN (RBC) [Entitic mass]34.4 ifKnbi61.9-34.0[facility] Medical CenterHC Auto (RBC) [Mass/Vol]Ordered By: Price Crain on 43-02-5568UTGY (RBC) [Mass/Vol]32.6 g/dL29.9-35.2FChildren's Hospital for RehabilitationMCV Auto (RBC) [Entitic vol]Ordered By: Price Crain on 49-88-5198PEL (RBC) [Entitic vol]105.4 wJZnfr98.0-94.0[facility] JacksonNo Panel InformationOrdered By: Price Crain on 73-65-190413 pg/zX51-76OjorkwzasHolzer Medical Center – Jackson72.4 ng/mLHolzer Medical Center – Jackson2.1 mg/dL1.8-2.4FChildren's Hospital for Rehabilitation5.1 mg/dL3.5-7.2FChildren's Hospital for Rehabilitation3.3 g/dLLow3.4-5.0 [facility]11.6FChildren's Hospital for Rehabilitation30.0 mg/dL High7.0-18.0[facility]9.3 mg/dL8.5-10.1FChildren's Hospital for Rehabilitation102 mmol/P45-645YvgetsvlwHolzer Medical Center – Jackson24.5 mmol/L 21.0-32.0[facility]2.58 mg/dLHigh0.70-1.30[facility]29Low>=60 mL/min/1.73m 2FChildren's Hospital for Rehabilitation 276 mg/wDRrmq61-917VcvvvauwvHolzer Medical Center – Jackson4.8 mmol/L3.5-5.1FChildren's Hospital for Rehabilitation136 mmol/P948-610TdifrszfqHolzer Medical Center – Jackson3.4 mg/dL2.6-4.7FChildren's Hospital for Rehabilitation77.46 mg/dL20.00-300.00[facility]233.8 mg/dLHigh<=11.9[facility] Platelet mean volume Auto (Bld) [Entitic vol]Ordered By: Price Crain on 06-39-3323Wmhhxehn mean volume (Bld) [Entitic vol]10.3 fL9.5-13.5FChildren's Hospital for RehabilitationPlatelets Auto (Bld) [#/Vol]Ordered By: Price Crain on 35-66-1912Zpyecgreg (Bld) [#/Vol]223 10 3/lK419-680ErrlpbsroHolzer Medical Center – JacksonRBC Auto (Bld) [#/Vol]Ordered By: Price Crain on 77-84-0992BNN (Bld) [#/Vol]3.14 10 6/uLLow4.70-6.10Toledo Hospitalerum or plasma anion gap determinationOrdered By: Price Crain on 72-65-0392Tjsyr gap [Moles/Vol]14.3 mmol/LFChildren's Hospital for RehabilitationUrine protein/creatinine ratioOrdered By: Price Crain on 91-12-2808Esgusxp/Creatinine (U) [Ratio]3.02 [facility] JacksonAmbulatory Visit Summaryon 11-01-8098Pzbbbnrrhe Visit SummaryAmbulatory Visit Summary PATSY MILLS :1945 Visit Date:04/25/2025 Ambulatory Visit Instructions Your Diagnosis Ureteral stricture Recurrent UTI Prostate cancer Noncompliant bladder BPH with urinary obstruction Incomplete bladder emptying Hydroureteronephrosis Kidney stones Family history of prostate cancer in father Your Care Team Attending Physician - Diego RICKS, Orquidea Taylor Primary Care Physician - HELEN OCHOA MD This Is Your Medications List ciprofloxacin (Cipro 500 mg Tab) nitrofurantoin (Macrobid 100 mg Cap) oxybutynin (oxybutynin 10 mg ER Tab) Contact prescribing physician if questions or concerns Non-Formulary Medication (D-mannose) acetaminophen (acetaminophen 500 mg Tab) aspirin (aspirin 81 mg Oral EC Tab) atorvastatin (atorvastatin 20 mg Tab) bifidobacterium-lactobacillus (Probiotic + Colostrum) cholecalciferol (Vitamin D3 2000 [...] interpretation (03/16/2025), Cystoscopy (03/07/2025), Change of suprapubic tiffany ter (07/28/2024), Cystoscopic insertion of ureteric stent (06/04/2024), Transperineal needle biopsyof prostate (06/01/2024), Cystoscopic insertion of ureteric stent (02/03/2024), Cystoscopic replacement of ureteric stent (06/10/2023), ESWL of kidney (06/10/2023), Cystostomy and insertion of suprapu bic tube (03/05/2023), Cystoscopic insertion of ureteric stent [...] By Mouth Every 12 hours Pickup at [facility] Unchanged nitrofurantoin (Macrobid 100 mg Cap) 1 Capsules By Mouth 2 times a day take 1 cap morningof cath change and 12hrs after Unchanged oxybutynin [...] prescribing physician if questions or concerns Unchanged bifidobacterium-lactobacillus (Probiotic + Colostrum) By Mouth Every day [...] concerns Pharmacy Information Discou (more content not included)...[facility] HospitalUrology Office/Clinic Noteon 10-13-2591Xxvduqw Office/Clinic NoteUrology Office/Clinic Note Chief Complaint 3-4wk follow up [...] and history for this patient from Dr. Issa I have reviewed and verified the staff [...] hydronephrosis) 10/14/22 - Crea 1.54. eGFR 44. (gunn in place) Cr up to 2 without gunn 0 12/08/22 - Cr 1.78. eGFR 37. BUN 30. K 5.0. (with gunn) 12/17/22 - Cr 1.84. eGFR 37. BUN 22. K 5.3. (with stent) 04/23/23 - Cr 1.80. eGFR 38. BUN 24. K 4.6 (with stent and SPT) 01/21/24 - Cr 2.83. BUN 40. K 4.3. (with stent and SPT) at [facility] due to RINA and UTI 01/22/24 - Cr 2.58. BUN 31. K 4.1. (with stent and SPT) at [facility] due to RINA and UTI 06/08/24 - [...] calculi left kidney measuring 7 mm. Post Gunn Renal US 10/14/22 neg for hydro. ANA 10/30/22 - Mild right pelvocaliectasis, neg for hydro. Pt refused gunn/CIC at that time. Renal US 11/17/22 [facility] - R-sided hydronephrosis and proximal hydroureter. Findings have progressed since prior study. Cr 1.87/ eGFR 36.6 Cath placed 11/21/2022 ANA 12/01/22 - Right hydronephrosis, grossly similar to the prior study despite gunn in place. S/p cysto/RG/ureteroscopy/stent placement/RT ureteral dilation and stent placement 12/10/22. ANA 12/17/22 - Interval resolution of the right sided hydronephrosis since the prior US study. Referred to [facility] urologist for right distal stricture, small capacity bladder with BL VUR 12/19/22. Dr. Jessica Feliciano evaluation -offered Botox, right stent placement and SP tube with plans for bladder augmentation and reimplant if bladder were to increase in size substantially. Patient declinedinvasive definitive treatment. He elected to proceed with chronic indwelling right stent with routine exchanges q3m and SP tube q1m S/p Cysto/R ureteral stent removal/R RGP/R stent placement 03/05/23. 7f x 26cm stent. S/p Cysto/R RGP/Ureteral stent exchange/L ESWL/SPT exchanged 06/10/23. Cont q4m ANA 01/20/24 [facility] - Bilateral mild pelvocaliectasis L>R. S/p cysto, R RPG, stent exchange, SP tube exchange, TP prostate bx, TRUS 06/01/24. Urology consult 06/03/24 due to moderate L hydroureteronephrosis with R stent and SPT S/p cysto, L RPG, stent placement 06/04/24. 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 BL stent exchange, SP tube exchange w/ Dr.Ahmad Manley at [facility] after transfer. 7x26 JJ-stent BL, Recommended neph tubes. 07/28/24 S/p cysto, JOSE RPG, JOSE stent exchange, SPT change 11/09/24. S/p cysto, BL RPG, BL (more content not included)...NormalFisher Aguada Medical CenterComment on above:Result Comment: Electronically Signed By: Diego RICKS, Orquidea Taylor\.br\Date and Time Signed: 04/25/25 16:37EDT\.br\Electronically Co-Signed By: Aleah Starr\.br\Date and Time Co-Signed: 04/25/25 14:43 EDT\.br\Electronically Co-Signed By: Aleah Starr\.br\Date and Time Co- Signed: 04/25/25 14:45 EDTBRIEF OP NOTon [id number] OP NOTHNO ID: [id number] Author: YAMILE GARCIA RT(R) Service: Radiology Author Type: Technologist Type: Brief Op Note Filed: 04/13/2025 12:30 Note Text: BRIEF OPERATIVE / PROCEDURE NOTE LOG ID: [id number] SURGERY/PROCEDURE DATE: 04/13/2025 INCISION/PROCEDURE START TIME: 12:01 PM INCISION CLOSE/PROCEDURE END TIME: 12:18 PM SURGEON(S)/PROCEDURALIST(S) AND DIRECTOR APPOINTMENT(S): Surgeons and Role: * Mansoor Petty MD - Primary * Yamile Garcia RRA Intern - Secondary Preoperative Concerns /Risks: None SURGERY/PROCEDURE(S): [...] Preop SIGNATURE: RT Екатерина(R) PATIENT NAME: Patsy Mills DATE: April 13, 2025 TIME: 12:27 [facility] [id number] (AVXRPR) PATSY MILLS ([id number]) 1945 M Date Time Provider Department 04/13/25 PIERO HUDDLESTON During your visit today, we recorded the following information about you: Piero Huddleston RN 04/13/2025 12:13 PM Signed Tube Exchange Appointment Request Form Person filling out this form: Piero Huddleston RN Date: April 13, 2025 Time: 12:13 PM Patient Name: Patsy Mills Patient What type of tube is [...] Rash Date Reviewed: 04/13/2025 Reviewed by: Stanford Ho, RN - Fully Assessed Reason for Visit: IR Outpatient Tube Appointment Request [[id number]] Prescriptions as of 04/13/2025 - aspirin 81 [...] 02/11/2023 Encounter Status:Closed by ANA MARQUES on 04/13/25[facility] Telephone (AVXRPR) PATSY MILLS ([id number]) 1945 M Date Time Provider Department 04/13/25 STANFORD HO AVXRPR During your visit today, we recorded the following information about you: Stanford Ho RN 04/13/2025 1:13 PM Signed Nephrostomy tube teaching information sent to pt My Chart Allergies As of Date: 04/13/2025 Noted Allergy Reaction MIRABEGRON 06/27/2022 6 - Diarrhea 8 - GI Upset GABAPENTIN 08/20/2021 2 - Rash Date Reviewed: 04/13/2025 Reviewed by: Stanford Ho RN - Fully Assessed Reason for Visit: [...] anemia [D50.9] 02/11/2023 Encounter Status:Closed by STANFORD HO [facility]/25[facility] NEPH [facility]UBE BILATon 40-70-0084QD EXCHANGE NEPH TUBE BILAT* * *Final Report* * * DATE OF EXAM: Apr 13 2025 12:24PM [facility] [id number] - IR EXCHANGE NEPH TUBE BILAT / PROCEDURE REASON: Hydronephrosis * * * * Physician Interpretation * * * * PROCEDURE: GENITOURINARY CATHETER EXCHANGE Procedural Personnel Attending physician(s): Mansoor Petty MD Fellow physician(s): None Resident physician(s): None Advanced practice provider(s): None Medical Student(s): None Pre-procedure diagnosis: Bladder dysfunction Post-procedure diagnosis: Same Indication: Routine catheter exchange Additional clinical history: 80-year-old male with potential bladder dysfunction. Patient had bilateral nephrostomy placed earlier for diversion. Patient is here for routine catheter exchange. PROCEDURE SUMMARY - Target organ: Bilateral little traverse kidneys - Antegrade nephrostogram(s) via the existing [...] with contrast injection. Pre-existing genitourinary catheter: 10 Australian Carter-French catheter Genitourinary catheter(s) placed: 10 Australian Carter-French catheter Findings: Pinon loop within the renal pelvis. External catheter securement: Non-absorbable suture Left genitourinary catheter exchange Local anesthesia was administered. Initial nephrostogram was performed. A wire was placed through the existing tube and it was removed. The new tube was advanced over the wire and position was confirmed with contrast injection. Pre-existing genitourinary catheter: 10 Australian Carter-French catheter Genitourinary catheter(s) placed: 10 Australian Carter-French catheter Findings: Pinon loop within the renal pelvis External catheter [...] comfortable and was tra (more content not included)...[facility] [id number] PROGHNO ID: [id number] Author: ZOHRA MARCANO RN Service: Nursing Author Type: Registered Nurse Type: Nursing Progress Note Filed: 04/18/2025 18:11 Note Text: Completed post procedure phone call. pt is feeling well and has returned to baseline diet and activity. pt denies questions or concerns related to appointment and had no surgical site concerns.[facility] ID: [id number] Author: STANFORD HO RN Service: Radiology Author Type: Registered Nurse Type: Nursing Progress Note Filed: 04/13/2025 13:14 Note Text: [facility] INTERVENTIONAL RADIOLOGY CONSULT NOTE [facility] April 13, 2025 Patsy Mills Tube Education Note Tube teaching done with [...] of a nephrostomy tube is available on YouTPosse. Please use this link: [email or web address] SIGNATURE: Stanford Ho RN PATIENT NAME: Patsy Mills DATE: April 13, 2025 TIME: 12:46 PM PAGER:Jose BOYER ID: [phone] Author: VIVI GUTIERREZ, RN Service: Nursing Author Type: Registered Nurse Type: Nursing Progress Note Filed: 04/13/2025 10:35 Note Text: PATIENT EDUCATION TOPIC: PROCEDURE / SURGERY: Procedure/Surgery: nephrostomy tube change PATIENT NAME: Patsy Mills PATIENT LOCATION: AV Rad Proc/AV Rad [...] REFERRAL (RECOMMENDATION): None Electronically Signed By: Vivi GutierrezSt. Vincent's Medical Centerjose [facility] Metabolic Panelon 75-90-0718JFY/1.73 sq M.predicted MDRD (S/P/Bld) [Vol rate/Area]29.063 mL/min/{1.73_m2}NormalThe Unc Health Chatham Physician GroupComment on above:Performed By: #### GLULS #### Point of Care testing ,Basophils [#/volume] in Blood by Automated countOrdered By: Brook Huddleston on 10-10-5362Ersitxqlk (Bld) [#/Vol]0.0 10*3/uLNormal0.0-0.2FChildren's Hospital for RehabilitationComment on above:Result Comment: PERFORMED BY: [address] [place] [address] PATHOLOGIST DOCK SUPERINTENDENT LUIS FELIPE S SALMA M.D.Performed By: #### GLULS #### Point of Care testing ,Basophils/100 leukocytes in Blood by Automated countOrdered By: Brook Huddleston on 99-58-5817Ehxguiotz/100 WBC (Bld)0.6 %Normal.[facility] Comment on above:Performed By: #### GLULS #### Point of Care testing ,CBC W Auto Differential panel (Bld)on 89-35-8770Xrbppappi (Bld) [#/Vol]0 10*3/uL0.0 - 0.2 10*3/uLNOMS HealthcareBasophils/100 WBC Manual cnt (Syn fld)0.6 %.[facility] HealthcareEosinophils (Bld) [#/Vol]0.7 10*3/uLHigh0.0 - 0.45 10*3/uLNOMS HealthcareEosinophils/100 WBC Manual cnt (Syn fld)8.8 %.[facility] Erythrocyte distribution width (RBC) [Ratio]16.1 %High12.0 - 14.8 %[facility] HospitalHematocrit (Bld) [Volume fraction]31.2 %Low38.8 - 50.0 %[facility] HospitalHemoglobin (Bld) [Mass/Vol]10.6 g/dLLow13.0 - 17.0 g/dLCooper County Memorial Hospital Interpretation and review of laboratory resultsAbnormGuthrie [facility] Lymphocytes (Bld) [#/Vol]1.2 10*3/uL1.00 - 4.8 10*3/uLNOThe Rehabilitation Institute Lymphocytes/100 WBC Manual cnt (Syn fld)14.6 %.[facility] Health CenterH (RBC) [Entitic mass]35.6 khAquo67.5 - 35.2 pgSSM DePaul Health CenterHC (RBC) [Mass/Vol]34.1 g/dL32.5 - 35.6 g/dLSSM DePaul Health CenterV (RBC) [Entitic vol]104.4 hVNmuj43.5 - 101 fLCooper County Memorial HospitalMonocytes (Bld) [#/Vol]0.6 10*3/uL0.0 - 0.8 10*3/uLCooper County Memorial Hospital Monocytes+Macrophages/100 WBC Manual cnt (Syn fld)7 %.[facility] Memorial HospitalNeutrophils (Bld) [#/Vol]5.5 10*3/uL1.8 - 7.7 10*3/uLNOMS HealthcareNeutrophils/100 WBC Manual cnt (Syn fld)69 %.NOMS HealthcareNRBC0.1 /100{WBC}0 - 0.5 /100{WBC}NOMS HealthcarePlatelet mean volume (Bld) [Entitic vol]7.3 fL6.6 - 10.1 fLNOMS HealthcarePlatelets (Bld) [#/Vol]210 10*3/uL150 - 450 10*3/uLNOMS HealthcareRBC LM.HPF (Urine sed) [#/Area]2.99 10*6/uLLow3.90 - 5.60 10*6/uLNOMS HealthcareWBC (Bld) [#/Vol]8 10*3/uL4.1 - 10.5 10*3/uLNOMS HealthcareWBC LM.HPF (Urine sed) [#/Area]8 [CFU]/mL4.1 - 10.5 [CFU]/mLNOMS HealthcareNOMS HealthcareCNPNon [id number] (AVXRPR) PATSY MILLS ([id number]) 1945 M Date Time Provider Department 04/05/25 STANFORD HO AVXRPR During your visit today, we recorded the following information about you: Stanford Ho RN 04/05/2025 11:18 AM Addendum Spoke with Piedad and pt on the line, aware of below instructions RADIOLOGY PROCEDURE INSTRUCTIONS: You are scheduled for a Bilateral Nephrostomy tube change, on March You are to arrive at 1030 am and check in at [facility]: Radiology Outpatient Desk [facility]. You can expect to be here for 2-3 hours. Address: [facility] [address] [place] [address] Diet: Do not eat any solid food [...] work. Stated is having lab drawn at [facility]. She will call pt Dr. Parham to add Inr and CBC to current blood work. Advised to bring in copies of lab work. Lab work needs to be drawn? Yes, labs need to be drawn at least one day prior to procedure. Please bring a copy of the results if they are not done at a [facility] facility. [employer]/Transportation: How will you be arriving for your [...] or reschedule your procedure, please call our manager hotel: Aleisha Johansen and [place] [phone]; 8am - 4pm M-F If you have any additional questions please call: [facility] nurses desk at [phone] 8am - 4pm M-F. Allergies As of Date: 04/05/2025 Noted Allergy Reaction MIRABEGRON 06/27/2022 6 - Diarrhea 8 - GI Upset GABAPENTIN 08/20/2021 2 - Rash Date Reviewed: 03/16/2025 Reviewed by: Krista Tamayo, EVY - Fully Assessed Reason for Visit: Radiology [...] (HCC) [M06.9] 12/15/2022 Pros (more content not included)...NormalAvon HospitalCalcium [Mass/volume] in Serum or PlasmaOrdered By: Orquidea Issa on 72-85-0605Cfmhujs [Mass/Vol]8.9 mg/dL Normal8.6-10.3FChildren's Hospital for RehabilitationComment on above:Result Comment: PERFORMED BY: [facility] [address] [place] [address] PATHOLOGIST DOCK SUPERINTENDENT LUIS FELIPE MARSH M.D.Performed By: #### GLULS #### Point of Care testing ,Carbon dioxide, total [Moles/volume] in Serum or PlasmaOrdered By: Orquidea Issa on 42-85-1652KA5 [Moles/Vol]26.7 mmol/TBczftn67.0-31.0[facility] – JacksonComment on above:Performed By: #### GLULS #### Point of Care testing ,Chloride [Moles/volume] in Serum or PlasmaOrdered By: Orquidea Issa on 04-05-2025 Chloride [Moles/Vol]105 mmol/DCstfga03-903LcjedfeakHolzer Medical Center – Jackson Comment on above:Performed By: #### GLULS #### Point of Care testing ,Complete Blood Count Auto Diffon 46-39-8783Baiv Corpuscular HGB Conc34.1 g/dL Uuqqiv59.5-35.6The Unc Health Chatham Physician GroupComment on above:Performed By: #### GLULS #### Point of Care testing ,NRBC%0.1 /100{WBC}Normal0-0.5The [facility] Physician The Specialty Hospital Of MeridianComment on above: Performed By: #### GLULS #### Point of Care testing ,White Blood Count8.0 [CFU]/mLNormal4.1-10.5The [facility] Physician The [facility] Hospital Of MeridianComment on above:Performed By: #### GLULS #### Point of Care testing ,Creatinine [Mass/volume] in Serum or PlasmaOrdered By: Orquidea Issa on 04-05-2025 Creatinine [Mass/Vol]2.23 mg/dLHigh0.70-1.30[facility] Comment on above:Performed By: #### GLULS #### Point of Care testing ,Eosinophils [#/volume] in Blood by Automated countOrdered By: Brook Flaquito on 45-78-8816Jympmaxogel (Bld) [#/Vol]0.7 10*3/uLHigh0.0-0.45[facility] – JacksonComment on above:Performed By: #### GLULS #### Point of Care testing ,Eosinophils/100 leukocytes in Blood by Automated countOrdered By: Brook Flaquito on 29-54-5931Liwlvxesedp/100 WBC (Bld)8.8 %Normal.[facility] Comment on above:Performed By: #### GLULS #### Point of Care testing ,Erythrocyte distribution width [Ratio] by Automated countOrdered By: Brook Flaquito on 52-28-8346Klgkdyordjp distribution width (RBC) [Ratio]16.1 %High12.0-14.8 [facility] – JacksonComment on above:Performed By: #### GLULS #### Point of Care testing ,Erythrocytes [#/volume] in Blood by Automated countOrdered By: Brook Huddleston on 45-92-0788BWR (Bld) [#/Vol]2.99 10*6/uLLow3.90-5.60[facility] – JacksonComment on above:Performed By: #### GLULS #### Point of Care testing ,Glomerular filtration rate [Volume Rate/Area] in Serum, Plasma or Blood by CreatinineOrdered By: Orquidea Issa on 38-54-7515Ovxorkxemn filtration rate [Volume Rate/Area] in Serum, Plasma or Blood by Njfuqlltrz02.063 mL/MinHolzer Medical Center – JacksonGlucose [Mass/volume] in Serum or PlasmaOrdered By: Orquidea Issa on 46-84-7285Maymrls [Mass/Vol]106 mg/iPEipu92-404ZqndwntdsHolzer Medical Center – JacksonComment on above:ADA recommended reference rangeRandom Glucose Reference Range is dependent on time and content of last meal. Glucose of more than 200 mg/dL in a nonstressed, ambulatory subject supports the diagnosisof Diabetes Mellitus.Result Comment: Random Glucose Reference Range is dependent on time and content of last meal. Glucose of more than 200 mg/dL in a nonstressed, ambulatory subject supports the diagnosis of Diabetes Mellitus. ADA recommended reference rangePerformed By: #### GLULS #### Point of Care testing ,Hematocrit [Volume Fraction] of Blood by Automated countOrdered By: Brook Gomezse on 49-91-8541Huqupbfsfz (Bld) [Volume fraction]31.2 %Low38.8-50.0[facility] Center – JacksonComment on above:Performed By: #### GLULS #### Point of Care testing ,Hemoglobin [Mass/volume] in BloodOrdered By: Brook Huddleston on 07-46-8172Dbsowxjvut (Bld) [Mass/Vol]10.6 g/dLLow13.0-17.0[facility] – JacksonComment on above:Performed By: #### GLULS #### Point of Care testing ,INR in Platelet poor plasma by Coagulation assayOrdered By: Carito Martell on 55-50-2257AQH Coag (PPP) [Relative time]1.0 {INR}NormalHolzer Medical Center – JacksonComment on above:INR Therapeutic Range A) Pre- and Peroperative OAT started two weeks before surgery. NOT HIP SURGERY: 1.5 - 2.5 HIP SURGERY: 2 - 3B) Primary and secondary prevention of venous THROMBOSIS: 2 - 3C) Active venous thrombosis, pulmonary embolismand prevention of recurrent venous thrombosis: 2 - 3D) Prevention of arterial thromboembolismincluding patients with mechanical heart valves: 3 - 4.5Result Comment: INR Therapeutic Range A) Pre- and [...] with mechanical heart valves: 3 - 4.5 PERFORMED BY: [place] [address] PATHOLOGIST DOCK SUPERINTENDENT LUIS FELIPE MARSH M.D.Performed By: #### CMP, CBC #### [place] [address] USALeukocytes [#/volume] corrected for nucleated erythrocytes in Blood by Automated counOrdered By: Brook Flaquito on 17-11-6755AMI corrected for nucl RBC Auto (Bld) [#/Vol]8.0 10*3/uL4.1-10.5FChildren's Hospital for Rehabilitation Leukocytes [#/volume] in Blood by Automated countOrdered By: Brook Huddleston on 07-75-5240IWF (Bld) [#/Vol]8.0 10*3/uLNormal4.1-10.5FChildren's Hospital for RehabilitationComment on above:Performed By: #### GLULS #### Point of Care testing ,Lymphocytes [#/volume] in Blood by Automated countOrdered By: Brook Huddleston on 69-03-9570Xdnchraixmp (Bld) [#/Vol]1.2 10*3/uLNormal1.00-4.8[facility] – JacksonComment on above:Performed By: #### GLULS #### Point of Care testing ,Lymphocytes/100 leukocytes in Blood by Automated countOrdered By: Brook Huddleston on 19-98-9131Tnphzlrxllp/100 WBC (Bld)14.6 %Normal.[facility] – JacksonComment on above:Performed By: #### GLULS #### Point of Care testing ,MCH [Entitic mass] by Automated countOrdered By: Brook Huddleston on 07-28-0354GQV (RBC) [Entitic mass]35.6 hkGdah24.5-35.2FChildren's Hospital for RehabilitationComment on above:Performed By: #### GLULS #### Point of Care testing ,MCHC Auto (RBC) [Mass/Vol]Ordered By: Brook Huddleston on 99-53-3997UMGJ (RBC) [Mass/Vol]34.1 g/dL32.5-35.6FChildren's Hospital for RehabilitationMCV [Entitic volume] by Automated countOrdered By: Brook Huddleston on 72-64-9749XPU (RBC) [Entitic vol]104.4 yGCybn26.5-101[facility] – JacksonComment on above: Performed By: #### GLULS #### Point of Care testing ,Monocytes [#/volume] in Blood by Automated countOrdered By: Brook Huddleston on 51-60-7077Nlgmyrghr (Bld) [#/Vol]0.6 10*3/uLNormal0.0-0.8[facility] – JacksonComment on above:Performed By: #### GLULS #### Point of Care testing ,Monocytes/100 leukocytes in Blood by Automated countOrdered By: Brook Huddleston on 43-75-4897Mqvykvlmd/100 WBC (Bld)7.0 %Normal.[facility] Comment on above:Performed By: #### GLULS #### Point of Care testing ,Neutrophils [#/volume] in Blood by Automated countOrdered By: Brook Huddleston on 17-61-1710Wkvgioaumzj (Bld) [#/Vol]5.5 10*3/uLNormal1.8-7.7FChildren's Hospital for RehabilitationComment on above:Performed By: #### GLULS #### Point of Care testing ,Neutrophils/100 leukocytes in Blood by Automated countOrdered By: Brook Huddleston on 01-52-8661Tvxstterias/100 WBC (Bld)69.0 %Normal.[facility] – JacksonComment on above:Performed By: #### GLULS #### Point of Care testing ,No Panel InformationOrdered By: Orquidea Issa on 96-86-0277Tsixwkhk Creatinine Clearance (ChemN/[facility] HospitalN/[facility] Memorial HospitalNucleated erythrocytes [Presence] in Blood by Automated countOrdered By: Brook Huddleston on 95-58-2834Iwkbihtwa RBC Auto Ql (Bld)0.1 /100{WBC}0-0.5FChildren's Hospital for RehabilitationPlatelet mean volume [Entitic volume] in Blood by Automated countOrdered By: Brook Huddleston on 41-42-8602Nkxnzcme mean volume (Bld) [Entitic vol]7.3 fLNormal6.6-10.1FChildren's Hospital for RehabilitationComment on above:Performed By: #### GLULS #### Point of Care testing ,Platelets [#/volume] in Blood by Automated countOrdered By: Brook Huddleston on 07-47-8873Ginarnxzf (Bld) [#/Vol]210 10*3/vGVeriqb096-957AsmujlytrHolzer Medical Center – JacksonComment on above:Performed By: #### GLULS #### Point of Care testing ,Potassium [Moles/volume] in Serum or PlasmaOrdered By: Orquidea Issa on 04-05-2025 Potassium [Moles/Vol]4.8 mmol/LNormal3.5-5.1FChildren's Hospital for Rehabilitation Comment on above:Performed By: #### GLULS #### Point of Care testing ,Prothrombin time (PT)Ordered By: Carito Martell on 34-65-1512NH Coag (PPP) [Time] 11.2 sNormal9.0-12.9[facility] – JacksonComment on above:A hematocrit value greater than 55% may lead to inaccurate results in coagulation testing. Patientshaving hematocrit values >55% require a special collection tube for coagulation studies. Please contact the laboratory at [phone] for redraw instructions.Result Comment: A hematocrit value greater than 55% may lead to inaccurate results in coagulation testing. Patients having hematocrit values >55% require a special collection tube for coagulation studies. Please contact the laboratory at [phone] for redraw instructions.Performed By: #### CMP, CBC #### [place] [address] USASerum or plasma anion gap determinationOrdered By: Orquidea Issa on 38-03-8191Omrxi gap [Moles/Vol]10.1 mmol/LNormal6.0-15.0[facility] – JacksonComment on above:Performed By: #### GLULS #### Point of Care testing ,Sodium [Moles/volume] in Serum or PlasmaOrdered By: Orquidea Issa on 04-05-2025 Sodium [Moles/Vol]137 mmol/TEljeil448-976HoanqlrkzHolzer Medical Center – Jackson Comment on above:Performed By: #### GLULS #### Point of Care testing ,Urea nitrogen [Mass/volume] in Serum or PlasmaOrdered By: Orquidea Issa on 83-17-6229Vmov nitrogen [Mass/Vol]30 mg/dLHigh7-25Firelands Regional Medical CenterComment on above:Performed By: #### GLULS #### Point of Care testing ,Ambulatory Visit Summaryon 05-06-7302Sxnteohwzn Visit SummaryAmbulatory Visit Summary PATSY MILLS :1945 Visit Date:03/28/2025 Ambulatory Visit Instructions Your Care Team Attending Physician - Shadia COOPER, Pratima Primary Care Physician - HELEN OCHOA MD This Is Your Medications List Non-Formulary Medication (D-mannose) acetaminophen (acetaminophen 500 mg Tab) aspirin (aspirin 81 mg Oral EC Tab) atorvastatin (atorvastatin 20 mg Tab) bifidobacterium-lactobacillus (Probiotic + Colostrum) cholecalciferol (Vitamin D3 2000 [...] interpretation (03/16/2025), Cystoscopy (03/07/2025), Change of suprapubic tiffany ter (07/28/2024), Cystoscopic insertion of ureteric stent (06/04/2024), Transperineal needle biopsyof prostate (06/01/2024), Cystoscopic insertion of ureteric stent (02/03/2024), Cystoscopic replacement of ureteric stent (06/10/2023), ESWL of kidney (06/10/2023), Cystostomy and insertion of suprapu bic tube (03/05/2023), Cystoscopic insertion of ureteric stent [...] RICKS, Orquidea Taylor Where: [facility] [address], [address] [place] [address]- Medications What How Much When Instructions Unchanged acetaminophen (acetaminophen 500 mg Tab) 1 Tablets By Mouth Every 4 hours as needed for for pain Unchanged aspirin (aspirin 81 mg Oral EC Tab) 1 Tablets By Mouth Every day Unchanged atorvastatin (atorvastatin 20 mg Tab) 1 Tablets By Mouth Every day Unchanged bifidobacterium-lactobacillus (Probiotic + Colostrum) By Mouth Every day [...] 2 times a day take 1 cap morningof cath change and 12hrs after Unchanged Non-Formulary [...] signed up for this yet, please contact [employer] at [phone] (more content not included)... [facility] HospitalAmbulatory Visit Summaryon 32-11-4248Venewizzjg Visit SummaryAmbulatory Visit Summary PATSY MILLS :1945 Visit Date:03/27/2025 Ambulatory Visit Instructions Your [...] EC Tab) atorvastatin (atorvastatin 20 mg Tab) bifidobacterium-lactobacillus (Probiotic + Colostrum) cholecalciferol (Vitamin D3 2000 [...] interpretation (03/16/2025), Cystoscopy (03/07/2025), Change of suprapubic tiffany ter (07/28/2024), Cystoscopic insertion of ureteric stent (06/04/2024), Transperineal needle biopsyof prostate (06/01/2024), Cystoscopic insertion of ureteric stent (02/03/2024), Cystoscopic replacement of ureteric stent (06/10/2023), ESWL of kidney (06/10/2023), Cystostomy and insertion of suprapu bic tube (03/05/2023), Cystoscopic insertion of ureteric stent [...] prescribing physician if questions or concerns Unchanged bifidobacterium-lactobacillus (Probiotic + Colostrum) By Mouth Every day [...] 2 times a day take 1 cap morningof cath change and 12hrs after Contact prescribing [...] Allergies Myrbetriq (Multiple o (more content not included)...[facility] HospitalUrology Office/Clinic Noteon 25-49-3594Btabkku Office/Clinic NoteUrology Office/Clinic Note Chief Complaint follow up HPI [...] Is wanting to know how long he willhave SP cath for. History of Present Illness Tests reviewed: reviewed UCx and external records: [facility] notes. I have reviewed the previous health record information and history for this patient from Dr. Issa I have reviewed and verified the staff [...] placement. THERESA N/A, pt inactive. Follows with Dr. Breann oliva. Pt here with his today. 1. Ureteral stricture (N13.5: Crossing vessel and stricture of ureter without hydronephrosis) 10/14/22 - Crea 1.54. eGFR 44. (gunn in place) Cr up to 2 without gunn 12/08/22 - Cr 1.78. eGFR 37. BUN 30. K 5.0. (with gunn) 12/17/22 - Cr 1.84. eGFR 37. BUN 22. K 5.3. (with stent) 04/23/23 - Cr 1.80. eGFR 38. BUN 24. K 4.6 (with stent and SPT) 01/21/24 - Cr 2.83. BUN 40. K 4.3. (with stent and SPT) at [facility] due to RINA and UTI 01/22/24 - Cr 2.58. BUN 31. K 4.1. (with stent and SPT) at [facility] due to RINA and UTI 06/08/24 - BUN 36, Cre 2.30, GFR 28 (with bilateral stents and SPT) 07/20/24 - Cre 6.20 08/01/24 - Cre 2.43 BMP 11/11/24 - Cr 3.58, eGFR 16 CT AP wo con 10/02/22 - Mild-mod BL hydronephrosis and hydroureter without obstructing stone or mass. Non-obstructing calculi left kidney measuring 7 mm. Post Gunn Renal US 10/14/22 neg for hydro. ANA 10/30/22 - Mild right pelvocaliectasis, neg for hydro. Pt refused gunn/CIC at that time. Renal US 11/17/22 [facility] - R-sided hydronephrosis and proximal hydroureter. Findings have progressed since prior study. Cr 1.87/ eGFR 36.6 Cath placed 11/21/2022 ANA 12/01/22 - Right hydronephrosis, grossly similar to the prior study despite gunn in place. S/P cysto/RG/ureteroscopy/stent placement/RT ureteral dilation and stent placement 12/10/22. ANA 12/17/22 - Interval resolution of the right sided hydronephrosis since the prior US study. Referred to [facility] urologist for right distal stricture, small capacity bladder with BL VUR 12/19/22. Dr. Jessica Feliciano evaluation -offered Botox, right stent placement and SP tube with plans for bladder augmentation and reimplant if bladder were to increase in size substantially. Patient declinedinvasive definitive treatment. He elected to proceed with chronic indwelling right stent with routine exchanges q3m and SP tube q1m S/p Cysto/R ureteral stent removal/R RGP/R stent placement 03/05/23. 7f x 26cm stent. S/p Cysto/R RGP/Ureteral stent exchange/L ESWL/SPT exchanged 06/10/23. Cont q4m ANA 01/20/24 [facility] - Bilateral mild pelvocaliectasis L>R. S/p cysto, R RPG, stent exchange, SP tube exchange, TP prostate bx, TRUS 06/01/24. Urology consult 06/03/24 due to moderate L hydroureteronephrosis with R stent and SPT S/p cysto, L RPG, stent placement 06/04/24. 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 BL stent exchange, SP tube ex (more content not included)...[facility] HospitalComment on above:Result Comment: Electronically Signed By: Orquidea Issa MD\.br\Date and Time Signed: 03/27/25 16:46EDT\.br\Electronically Co- Signed By: Aleah Starr\.br\Date and Time Co-Signed: 03/27/25 15:32 EDT Bessie 84-52-3225LPTLIxhmabtpy (Angio) PATSY MILLS ([id number]) 1945 M Date Time Provider Department 03/20/25 JESUS CLEMENT Angio During your visit today, we recorded the [...] hours please call or and ask the stacker and sorter operator to page the interventional residential instructor salon designer. 5) To change or schedule an appointment [...] for nephrostomy tube care instructions and demonstrations. [email or web address] Activity and Exercise: (When I can drive, [...] please call Interventional Radiology nurse triage line [phone], Thursday - Thursday 9 a.m. - 4 p.m. After hours please call and ask for Interventional Radiology Fellow salon designer, pager [phone]. In the event of acute symptoms report [...] - GI Upset G (more content not included)...NormalEast Liverpool City HospitalCNPNon [id number] (IRRFV) PATSY MILLS ([id number]) 1945 M Date Time Provider Department 03/16/25 [facility] PROVIDER KANNAN During your visit today, we recorded the following information about you: Allergies As of Date: 03/16/2025 Noted Allergy Reaction MIRABEGRON 06/27/2022 6 - Diarrhea 8 - GI Upset GABAPENTIN 08/20/2021 2 - Rash Date Reviewed: 03/16/2025 Reviewed by: Krista Tamayo, RN - Fully Assessed Primary Visit Diagnosis:Ureteral 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.5] Order(s):IR NEPH TUBE CHANGE [0036368] Order #: [id number] STANDING Prescriptions as of 03/16/2025 - aspirin [...] anemia [D50.9] 02/11/2023 Encounter Status:Closed by BIBIANA MASTERS on 03/16/25[facility] (AVXRPR[facility] GENEPATSY G ([id number]) 1945 M Date Time Provider Department 03/16/25 ZOHRA MARCANO AVXRJEROMY During your visit today, we recorded the following information about you: Zohra Marcano RN 03/16/2025 11:28 AM Signed Tube Exchange Appointment Request Form Person filling out this form: Zohra Marcano RN Date: March 16, 2025 Time: 11:27 AM Patient Name: Patsy Mills Patient What type of tube is this? Nephrostomy or nephroureteral (tube in the back) Does this tube need exchanged? Yes, How many weeks? 4 weeks Per physician direction, does this need to be physician specific? No Does this patient require DAVIN? No Per physician, can this exchange be done in the region? [place] [facility] [place] ( [place] ) If the patient has an already existing exchange appointment can that one be cancelled? Yes Any other pertinent information needed for schedulers?bilateral Bibiana Masters 03/17/2025 7:56 AM Signed Due 04/13-- calling PT Allergies As of Date: 03/16/2025 Noted Allergy Reaction MIRABEGRON 06/27/2022 6 - Diarrhea 8 - GI Upset GABAPENTIN 08/20/2021 2 - Rash Date Reviewed: 03/16/2025 Reviewed by: Krista Tamayo, RN - Fully Assessed Reason for Visit: IR Outpatient Tube Appointment Request [[id number]] Prescriptions as of 03/17/2025 - aspirin 81 [...] anemia [D50.9] 02/11/2023 Encounter Status:Closed by ZOHRA MARCANO on 03/16/25[facility] HospitalHISTORY PHYSICALon [id number] PHYSICALHNO ID: [id number] Author: DAX FORBES MD Service: Interventional Radiology [...] SIGNATURE: Dax Forbes MD PATIENT NAME: Patsy Mills DATE: March 16, 2025 TIME: 9:[address] [facility]UBE BILATon [id number] PLACE NEPH TUBE BILAT* * *Final Report* * * DATE OF EXAM: Mar 16 2025 11:34AM A 7352 - IR PLACE NEPH TUBE BILAT / PROCEDURE REASON: hydronephrosis * * * * Physician Interpretation * * * * Percutaneous nephrostomy placement (BILATERAL) Procedural Personnel Attending: Dax Forbes MD Assistance: None Pre-procedure diagnosis: Bladder dysfunction Post-procedure diagnosis: Same Indication: Urinary diversion PROCEDURES 1. Focused Ultrasound of the LEFT [place] kidney 2. Ultrasound and Fluoroscopic-guided placement of a LEFT PCN 3. LEFT antegrade nephrostogram 4. Ultrasound evaluation of the RIGHT [place] kidney 5. Ultrasound and fluoroscopic-guided placement of [...] Start of procedure: 944 End of procedure: 6 TECHNIQUE: Patient was placed in prone position. Procedure area(s) (FLANK(s)) were prepped and draped in the usual sterile fashion. A value stream manager image of the area(s) was obtained and showed no new abnormality compared to prior. LEFT [place] NEPHROSTOMY Focused ultrasound evaluation of the LEFT [place] kidney was performed as described below. An [...] the tract was dilated and a 10 [place] PCN was placed. After decompression of the collecting system contrast was injected and an antegrade nephrostogram was performed confirming positioning of the catheter within the urinary collecting system with additional findings as below. The pigtail was formed and locked and a gravity drainage bag attached. The catheter was sutured to the skin with 2-O nonabsorbable suture. RIGHT [place] NEPHROSTOMY Focused ultrasound evaluation of the RIGHT [place] kidney was performed as described below. An [...] the tract was dilated and a 10 [place] PCN was placed. After decompression of the collecting system contrast was injected and an antegrade nephrostogram was performed confirming positioning of the catheter within the urinary collecting system with additional findings as below. The pigtail was formed and locked and a gravity drainage bag attached. The catheter was sutured to the skin w (more content not included)...[facility] [id number] PROGHNO ID: [id number] Author: GIANFRANCO MORRISON, EVY Service: Nursing Author Type: Registered Nurse Type: Nursing Progress Note Filed: 03/22/2025 16:19 Note Text: Completed post procedure phone call. Patsy is feeling well and has returned to his baseline diet and activity. He denies questions or concerns related to his appointment and had no surgical site concerns.[facility] ID: [id number] Author: KRISTA TAMAYO RN Service: Nursing Author Type: Registered Nurse Type: Nursing Progress Note Filed: 03/16/2025 12:27 Note Text: [facility] INTERVENTIONAL RADIOLOGY CONSULT NOTE [facility] March 16, 2025 Patsy Mills Tube Education Note Tube teaching done with [...] of a nephrostomy tube is available on YouTPosse. Please use this link: [email or web address] For questions or concerned please contact [facility] at [phone], option 1. Mon-Fri 8 am to 4:30 pm . For concerns between 4:30PM-7:00AM contact the on-call IR fellow / resident at pager [phone] SIGNATURE: Krista Tamayo RN PATIENT NAME: Patsy Mills DATE: March 16, 2025 TIME: 12:17 PM PAGER:[facility] ID: [id number] Author: ARYA MILLS RN Service: Nursing Author Type: Registered Nurse Type: Nursing Progress Note Filed: 03/16/2025 08:53 Note Text: PATIENT EDUCATION TOPIC: PROCEDURE / SURGERY: Procedure/Surgery: Nephrostomy Tube Placement PATIENT NAME: Patsy Mills PATIENT LOCATION: AV Rad Proc/AV Rad [...] REFERRAL (RECOMMENDATION): None Electronically Signed By: Arya MillsT[facility] Urineon 03-10-2025 Bacteria identified Cx Nom (U)Microbiology PROCEDURE: Urine Culture [R1] SOURCE: U Cysto BODY SITE: COLLECTED DATE/TIME: 03/07/2025 12:30 EDT RECEIVED DATE/TIME: 03/07/2025 13:24 EDT START DATE/TIME: 03/07/2025 13:25 EDT FREE TEXT SOURCE: orestes Issa MD, Orquidea Issa MD, Orquidea Taylor FINAL REPORTS Final Report [] Verified Date/Time: 03/10/2025 14:57 EDT 500 cfu/ml Staphylococcus aureus isolated. 5,000 cfu/ml Jessica albicans Presumptive isolated. SUSCEPTIBILITY RESULTS LEGEND: S=Susceptible, N/R=Not Reported, Blank=Data not available, [...] Locations R1: This test was performed at: [facility], [address] [place] [address], [address]- , , FscvtyKcxhgoEast Liverpool City HospitalComment on above:Performed By: #### [id number] #### [facility] [address] [place] [id number] Urography Retrograde Bilateralon [id number] Urography Retrograde BilateralExam Date/Time: 03/07/2025 12:24 EDT Reason for Exam: cysto bilateral stent exchange Report XR Urography Retrograde Bilateral : 03/07/2025 11:52 AM CLINICAL HISTORY: cysto bilateral stent exchange. COMPARISON: None available. Intraoperative fluoroscopy was provided for Dr. Orquidea Issa 's procedure. No diagnostic images were obtained. Please see Dr. Orquidea Issa 's surgical notes for complete details. Technical Comments: Ka,r in mGy = 3.60 DAP = 271.11 Ordering Provider: Orquidea Issa FINAL REPORT Dictated: 03/09/2025 9:51 am Topher Stanley DO Signed (Electronic Signature): 03/09/2025 9:51 am Signed by: Topher Stanley DO Transcribed by: NEVAEH Technologist: ChristaCarteret Health Caremachelle [facility]aritan HospitalCNShai [id number] (AVXRPR) PATSY MILLS ([id number]) 1945 M Date Time Provider Department 03/08/25 MARISOL VENTURA AVXRPR During your visit today, we recorded the following information about you: Marisol Ventura RN 03/08/2025 10:39 AM Addendum Spoke with Patsy Herbert's that appointment is for ThursdayMarch 16 RADIOLOGY PROCEDURE INSTRUCTIONS: You are scheduled for a Nephrostomy Tube Placement, on February You are to arrive at 07:30 am and check in at [facility]: Radiology Outpatient Desk [facility]. You can expect to be here for 6-8 hours. Address: [address] [address] Diet: Do not eat any solid food [...] Lab work needs to be drawn? No. Assembler Metal Building/Transportation: How will you be arriving for your [...] or reschedule your procedure, please call our manager hotel: Teo Johansen [phone]; 8am - 4pm M-F If you have any additional questions please call: [facility] nurses desk at [phone] 8am - 4pm M-F. Option 1 Allergies [...] 02/11/2023 Encounter Status:Closed by MARISOL VENTURA on 03/08/25NormalAvon HospitalMain OR Intraoperative Recordon [id number] OR Intraoperative RecordMain OR Intraoperative Record IntraOp Document Type FT Summary Primary Physician: Orquidea Issa MD Finalized Date/Time: 03/08/25 09:30:16 Pt. Name: PATSY MILLS Barron Herrera/Sex: 1945 Male Med Rec #: [id number] Physician: Orquidea Issa MD Financial #: [id number] Pt. Type: A Room/Bed: [place] [address] Admit/Disch: 03/07/25 07:51:51 - 03/07/25 14:25:00 Institution: Case Times FT Entry 1 Patient Times In Room 03/07/25 11:47:00 Out Room 03/07/25 12:25:00 Procedure Times Start 03/07/25 12:00:00 Stop 03/07/25 12:20:00 Anesthesia Times Start 03/07/25 11:47:00 Stop 03/07/25 12:25:00 Last Modified By: Kelsey Daniels Ii 03/07/25 14:00:58 Case Attendance FT Entry 1 Entry 2 Entry 3 Case Attendee Topher Pollock MD, Orquidea Hernandez CST, Denise Lebron Role Performed Anesthesiologist Surgeon - Primary Scrub - Relief Java Security Engineer Time In 03/07/25 11:47:00 03/07/25 11:47:00 03/07/25 11:47:00 Time Out 03/07/25 12:25:00 03/07/25 12:25:00 03/07/25 12:00:00 Procedure CYSTOSCOPY RETROGRADE CYSTOSCOPY RETROGRADE CYSTOSCOPY RETROGRADE STENT STENT STENT INSERTION(Bilateral) INSERTION(Bilateral) INSERTION(Bilateral) Comments DR. REEVES DINKEY OPERATOR LUNCH RELIEF Last Modified By: Kelsey Daniels Ii, Alfons Ii F Letrondo, Alfons Ii F 03/07/25 14:01:34 03/07/25 14:01:34 03/07/25 14:01:34 Entry 4 Entry 5 Entry 6 Case Attendee Becca Mills Alfons Ii F Barnes RT(R), Heavenly R Role Performed Scrub - Primary Qa Automation Engineer - Primary Medical Intern Time In 03/07/25 12:00:00 03/07/25 11:47:00 03/07/25 11:47:00 Time Out 03/07/25 12:25:00 03/07/25 12:25:00 03/07/25 12:25:00 Procedure CYSTOSCOPY RETROGRADE CYSTOSCOPY RETROGRADE CYSTOSCOPY RETROGRADE STENT STENT STENT INSERTION(Bilateral) INSERTION(Bilateral) INSERTION(Bilateral) Comments Last Modified By: Kelsey Daniels Ii, Alfons Ii F Letrondo, Alfons Ii F [...] X-ray Applicable) PreOp Antibiotic Yes Time Out Emilee KNIGHT, Topher Given Participants Diego Carter MD, David Bell CST, Denise Lebron, Becca Mills, Kelsey Daniels Ii, Rikki RT(R), Heavenly R Time Out Complete 03/07/25 [...] EXCHANGE Primary Procedure Yes Primary Surgeon Orquidea Issa MD Start 03/07/25 12:00:00 Stop 03/07/25 12:20:00 [...] and tissue Entry 1 Skin Integrity Intact, [place], Warm, & Skin Abnormality No Dry Outcomes Met? Yes Last Modified By: Kelsey Daniels Ii 03/07/25 12:17:44 Post-Care Text: The (more content not included)...NormalGrant HospitalCapillary Glucose POCon 71-91-8737Ezmdset [Mass/Vol]200 mg/aZWevs64-66QusesgGrant HospitalComment on above:Result Comment: Cleaned MeterPerformed By: #### [id number] #### [place] [facility] [address], [place] [id number] Instructionson [id number] Instructions Discharge Instructions PATSY MILLS :1945 Visit Date:03/07/2025 Inpatient Discharge Instructions Your Care Team Admitting Physician - Orquidea Issa MD Referring Physician - Orquidea Issa MD Reason for Your Visit URETHRAL STRICTURE, NON COMPLIANT BLADDER, HYDROURETERONEPHROSIS Your Diagnosis Bilateral hydronephrosis, Hydroureteronephrosis Chronic indwelling Gunn catheter Noncompliant bladder Ureteral stricture Procedure History [...] Cystoscopic removal of ureteric stent (08/20/2012), Cystoscopic ure teroneocystostomy with insertion of ureteral stent (08/05/2012), ESWL [...] minimal amount of drainage and/or bleeding, Activity astolerated Discharge Restrictions No driving for 24 hrs Discharge Diet(s) Regular Call Your Doctor For Persistent or heavy bleeding, Temperature above 101.5 degrees, Redness, swelling, or pus at operative site, Severe pain at the operative site Discharge Instructions Discharge Instructions Previously Scheduled Follow-Up Appointments Thursday 11:00 AM EDT With: Pratima Reno PA-C Where: [facility] [address] [place] [address]- New Follow Up Appointments after Discharge Follow Up with Orquidea Issa When: Comments: Call to schedule your follow up 1-2 weeks after BL nephrostomy tube placement Where: [facility]anna Maldonado, [address] [phone] Business (1) Medications What How Much When Instructions Next Dose Unchanged acetaminophen (acetaminophen 500 mg Tab) 1 Tablets By Mouth Every 4 hours as needed for for pain Unchanged aspirin (aspirin 81 mg Oral EC Tab) 1 Tablets By Mouth Every day Unchanged atorvastatin (atorvastatin 20 mg Tab) 1 Tablets By Mouth Every day Unchanged bifidobacterium-lactobacillus (Probiotic + Colostrum) By Mouth Every day [...] 2 times a day take 1 cap morningof cath change and 12hrs after Unchanged Non-Formulary [...] receiving treatment for. Elevated cholesterol Education Materials Gunn Catheter Care, Male A Gunn catheter is a soft, flexible tube that is placed into the bladder to drain urine. The catheter has a balloon to hold it (more content not included)...[facility] HospitalComment on above:Result Comment: Electronically Signed By: Dave RATLIFF, Josefina Iraheta\.br\Date and Time Signed: 03/07/25 13:28 EDTH&P Updateon 03-07-2025H&P UpdateH&P Update Patient: PATSY MILLS Age: 80 years Sex: Male : 1945 Associated Diagnoses: None Author: Diego RICKS, Orquidea Taylor Basic Information I have reviewed prior notes, spoke with patient, no changes to history. Patient elects to proceed with surgery as planned. Health Status Procedure history: Cysto with bilateral stent exchange, suprapubic catheter exchange, ureteroscopy, right retrograde pyelogram ([id number]) on 07/28/2024 at 79 Years. Comments: 08/26/2024 15:18 JAVIER - Cornelia De Leon done at [facility] Cystoscopy, Left RPG, Left ureteral stent placement ([id number]) on 06/04/2024 at 79 Years. Cystoscopy, Right RPG, Ureteral stent exchange, Suprapubic tube exchange, Transperineal needle biopsy of prostate, Transrectal ultrasound of prostate ([id number]) on 06/01/2024 at 79 Years. Cystoscopy, Right RPG, Ureteral stent exchange, SPT exchange ([id number]) on 02/03/2024 at 78 Years. Rt Ureteral Stent Exchange ([id number]) on 06/10/2023 at 78 Years. Lt ESWL ([id number]) on 06/10/2023 at 78 Years. Cystostomy and insertion of suprapubic tube ([id number]) on 03/05/2023 at 78 Years. Cystoscopic insertion of ureteric stent ([id number]) on 12/10/2022 at 77 Years. TURP - Transurethral resection of prostate ([id number]) on 08/27/2022 at 77 Years. Transurethral insertion of prostatic urethral lift implant ([id number]) on 05/05/2022 at 77 Years. Cysto/Lt Stent Removal ([id number]) on 08/20/2012 at 67 Years. Cysto/Lt RG/ Stone Basket/Lt Stent Placement ([id number]) on 08/05/2012 at 67 Years. LT ESWL ([id number]) on 03/02/2009 at 64 Years. heel spur. Stem cell transplant ([id number]). Dental surgical procedure ([id number]). Social History Social & Psychosocial Habits Alcohol [...] 20 years ago - 04/21/2019 08:37 - Catracho Mario Janes 03/03/2025 Risk Assessment: Denies Tobacco Use . [...] Routine, Start date 03/07/25 8:00:00 EDT, 100 mL/hr,Infuse over 30 minute(s), HOLD if patient has history of anaphylactic allergic reaction to Penicillin. Prescriptions Prescribed Macrobid 100 mg Cap: 100 mg = 1 cap(s), Oral, BID, take 1 cap morning of cath change and 12hrs after, # 30 cap(s), Refills(s) 1, Pharmacy: [facility], 171, cm, 07/22/23 9:22:00 EST, Height/Length [...] Problems Asymptomatic microscopic hematuria / SNOMED CT 7189356144 / Confirmed Bilateral hydronephrosis / SNOMED CT 793802030 / Confirmed BPH with urinary obstruction / SNOMED CT 6217989739 / Confirmed Diabetes / SNOMED CT 566998948 / Confirmed Dysuria / SNOMED CT 44976828 / Confirmed Family history of prostate cancer in father / SNOMED CT 5360086205 / Confirmed Glycosuria / SNOMED CT 71153875 / Confirmed History of kidney stones / SNOMED CT 1437760279 / Confirmed HTN (hypertension) / SNOMED CT 0092954064 / Confirmed Hydroureter / SNOMED CT 614140054 / Confirmed Hydroureteronephrosis / SNOMED CT 75846022 / Confirmed Incomplete bladder emptying / SNOMED CT 726587548 / Confirmed Kidney stones / SNOMED CT 1 (more content not included)...[facility] HospitalComment on above:Result Comment: Electronically Signed By: Orquidea Issa MD\.br\Date and Time Signed: 03/07/25 08:31EDTInpatient Patient Summaryon [id number] Patient SummaryInpatient Patient Summary [address] [address] [facility] Clinical Discharge Instructions PERSON INFORMATION Name: PATSY MILLS [facility]#:[id number] PHYSICIANS Admitting Physician: Orquidea Issa MD Attending Physician: Orquidea Issa MD PCP: DON RICKS, HELEN Discharge Diagnosis: Bilateral hydronephrosis; Chronic indwelling Gunn catheter; Hydroureteronephrosis; Noncompliant bladder; Ureteral stricture Comment: PATIENT EDUCATION INFORMATION Instructions: Gunn Catheter Care, Male-[facility] (Custom); Ureteral Stent Implantation, Care After Medication Leaflets: Follow up: With: Address: When: Orquidea Issa [address] [place] [address], [place] [address], [place] [phone] Journalism Online (1) Comments: Call to schedule your follow up 1-2 weeks after BL nephrostomy tube placement Type Location Start Finish [facility] URO Office Visit [facility] 03/15/2025 11:00 AM 03/15/2025 11:20 AM Confirmed MEDICATION LIST Medications to Continue with No Changes Other Medications acetaminophen (acetaminophen 500 mg Tab) 1 Tablets By Mouth every 4 hours as needed for pain. aspirin (aspirin 81 mg Oral EC Tab) 1 Tablets By Mouth every day. atorvastatin (atorvastatin 20 mg Tab) 1 Tablets By Mouth every day. bifidobacterium-lactobacillus (Probiotic + Colostrum) By Mouth every day. [...] Tablets By Mouth every day. Refills: 0. Comment:[facility] PACU I Recordon [id number] OR PACU I RecordMain OR PACU I Record PACU Phase I Document Type FT Summary Primary Physician: Orquidea Issa MD Finalized Date/Time: 03/07/25 18:06:19 Pt. Name: PATSY MILLS/Sex: 1945 Male Med Rec #: [id number] Physician: Orquidea Issa MD Financial #: [id number] Pt. Type: Room/Bed: [place] [address] Admit/Disch: 03/07/25 07:51:51 - 03/07/25 14:25:00 Institution: [...] individualized perioperative plan of care The patient's rightto privacy is maintained The patient's value system, [...] with or improved from baseline levels established preoperativelyThe patient's cardiovascular status is consistent with or improved from baseline levels established preoperatively The patient's cardiovascular status is consistent with or improved from baseline levels established preoperatively The patient demonstrates and/or reports adequate pain control throughout the perioperative period The patient received appropriate medication(s), safely administered during the perioperativeperiod Acuity Level PACU I FT Entry 1 Start Time 03/07/25 12:28:00 Stop Time 03/07/25 12:58:00 Acuity Level Acuity Level I Last Modified By: Myrna Ang RN 03/07/25 18:06:15 Finalized By: Myrna Ang RN Document Signatures Signed By: Myrna Ang RN 03/07/25 18:06[facility] PACU II Recordon [id number] OR PACU II RecordMain OR PACU II Record PACU Phase II Document Type FT Summary Primary Physician: Orquidea Issa MD Finalized Date/Time: 03/07/25 14:31:22 Pt. Name: PATSY MILLS/Sex: 1945 Male Med Rec #: [id number] Physician: Orquidea Issa MD Financial #: [id number] Pt. Type: A Room/Bed: [facility] Admit/Disch: 03/07/25 07:51:51 - Institution: Case Times [...] and monitors body temperature Evaluates postoperative respiratory statusEvaluates postoperative cardiac status Evaluates postoperative neurological status [...] individualized perioperative plan of care The patient's rightto privacy is maintained The patient's value system, [...] with or improved from baseline levels established preoperativelyThe patient's cardiovascular status is consistent with or improved from baseline levels established preoperatively The patient's neurological status is consistent with or improved from baseline levels established preoperatively The patient demonstrates and/or reports adequate pain control throughout the perioperative period The patient received appropriate medication(s), safely administered during the perioperativeperiod Finalized By: Ana Castañeda RN Document Signatures Signed By: Ana Castañeda RN 03/07/25 14:31[facility] Preoperative Recordon [id number] OR Preoperative RecordMain OR Preoperative Record PreOp Document Type FT Summary Primary Physician: Orquidea Issa MD Finalized Date/Time: 03/07/25 12:01:52 Pt. Name: PATSY MILLS /Sex: 1945 Male Med Rec #: [id number] Physician: Orquidea Issa MD Financial #: [id number] Pt. Type: A Room/Bed: [facility] Admit/Disch: 03/07/25 07:51:51 - Institution: Case Times [...] Signatures Signed By: Kelsey Daniels Ii 03/07/25 12:01[facility] HospitalOperative Reporton [id number] ReportOperative Report Patient: PATSY MILLS Age: 80 years Sex: Male : 1945 Associated Diagnoses: None Author: Orquidea Issa MD Procedure Procedure Date: 03/07/2025. Confirmed: patient, procedure, site, safety procedures followed. Performed by: Orquidea Issa MD, anesthesiologist (Topher Hebert [facility]). Type of procedure: 1. Cystoscopy, bilateral retrograde pyelogram, bilateral ureteral stent exchange 2. Suprapubic catheter exchange. Informed consent: signed by patient. Indication: 80-year-old male with a history of noncompliant bladder with bilateral vesicoureteral reflux leading to worsening CKD, ureteral strictures and bilateral hydroureteronephrosis managed withchronic indwelling bilateral ureteral stents and suprapubic catheter. He presents today for routineexchange. Risks discussed including but not limited to [...] on left (due to inventory) New 16 Australian suprapubic catheter exchanges, 10 cc in balloon.. [...] We began the procedure using a 22.5 Australian rigid cystoscope, 30 degree lens, and inserted this intothe bladder without any issue. We noted a normal appearance of the urethra en route to the bladder,findings as above. Once inside the bladder, a cystoscopic examination revealed no bladder tumors, stones. Bilateral ureteral orifices were orthotopic and patent. A hybrid straight wire was inserted to the right ureteral orifice alongside the indwelling stent up to the kidney confirmed on fluoroscopy. The indwelling right ureteral stent was removed without difficulty. A 5 Australian open-ended catheter was inserted over the wire, hydronephrotic drip was noted and urine sent for culture based on patient's history of recurrent UTIs. Contrast was injected for retrograde pyelogram findings above. The stent was backloaded through the cystoscope and a new 7 Australian by 26 cm double-J right ureteral stent was inserted over the wire, with adequate curl in the renal pelvis and bladder confirmed on directand fluoroscopic guidance. Attention was turned to the [...] catheter was removed and a new 16 Australian two-way Gunn catheter was inserted without difficulty, 10 cc in the balloon. This was confirmed under direct visualization. The bladder was drained and the cystoscope removed. Theprocedure was then concluded and the patient was awakened from general anesthesia and sent to the PACU in satisfactory condition. CULTURES TAKEN: none PATIENT CONDITION: Stable and extubated PLAN: Follow-up 1 to 2 weeks after bilateral nephrostomy tubes are placed. . Impression and Plan Diagnosis Bilateral hydronephrosis (XTK47-KJ N13.30, Discharge, Medical). Chronic indwelling Gunn catheter (VFN33-DN Z97.8, Discharge, Medical). Hydroureteronephrosis (VLS61-VW N13.30, Discharge, Medical). Noncompliant bladder (IJZ98-VS N31.9, Discharge, Medical). Ureteral stricture (TBP60-BA N13.5, Discharge, Medical). Diagnosis Bilateral hydronephrosis (QLT17-JT N13.30, Discharge, Medical). Chronic indwelling Gunn catheter (EYR50-BT Z97.8, Discharge, Medical). Hydroureteronephrosis (PPI69-DR N13.30, Discharge, Medical). Noncompliant bladder (YEH72-LH N31.9, Discharge, Medical). Ureteral stricture (IOD00-WB N13.5, Discharge, Medical).[facility] HospitalComment on above:Result Comment: Electronically Signed By: Orquidea Issa MD\.br\Date and Time Signed: 03/07/25 12:59EDTOutpatient Surgery Discharge Instructionon [id number] Surgery Discharge InstructionOutpatient Surgery Discharge Instruction [place] [id number] Patient Discharge Instructions PERSON INFORMATION Name: PATSY MILLS Date of : 1945 Current Date: 03/07/2025 12:38:01 PHYSICIANS Admitting Physician: Orquidea Issa MD Discharge Diagnosis: Bilateral hydronephrosis; Chronic indwelling Gunn catheter; Hydroureteronephrosis; Noncompliant bladder; Ureteral stricture PATSY MILLS has been given the following list of [...] THE NEAREST EMERGENCY ROOM OR CALL 911 GENE Ramírez DONALD G, have received the attached patient education materials/instructions and have verbalized understanding: May we do a follow up call? Yes No I was present when discharge instructions were given Patient Signature Date Clinican/Nurse Signature Date Follow up: With: Address: When: Orquidea Issa [facility] [place] [address] [address] [phone] Business (1) Comments: Call to schedule your follow up 1-2 weeks after BL nephrostomy tube placement Type Location Start [facility] URO Office Visit [facility] EU Cooper 03/15/2025 11:00 AM 03/15/2025 11:20 AM Confirmed [...] to serve you. Thank you for choosing [facility] HERE ARE THE MEDICATION CHANGES THAT OCCURRED DURING YOUR HOSPITAL STAY Medications to Continue with No Changes Other Medications acetaminophen (acetaminophen 500 mg Tab) 1 Tablets By Mouth every 4 hours as needed for pain. aspirin (aspirin 81 mg Oral EC Tab) 1 Tablets By Mouth every day. atorvastatin (atorvastatin 20 mg Tab) 1 Tablets By Mouth every day. bifidobacterium-lactobacillus (Probiotic + Colostrum) By Mouth every day. [...] day. Refills: 0. PATIENT EDUCATION INFORMATION Instructions: Gunn Catheter Care, Male A Gunn catheter is a soft, flexible tube that is placed into the bladder to drain urine. The catheter has a balloon to hold it inside the bladder. A Gunn catheter may be inserted if: ??? You [...] catheter because this cou (more content not included)...[facility] Proceduralon [id number] Patient: PATSY MILLS Age: 80 years Sex: Male : 1945 Associated Diagnoses: None Author: Delmar Reeves MD Preoperative Information Anesthesia Preop Info: Time patient last ate or drank 03/07/2025 00:00:00. Anesthesia history: Patient history: None. Family history+: None. Informed consent: Signed by patient. Including risks, benefits, and alternatives related to the: Anesthetic plan. Re-evaluation prior to induction: Delmar Reeves MD. Review of Systems Eye Ear/Nose/Mouth/Throat Respiratory: [...] after, # 30 cap(s), Refills(s) 1, Pharmacy: [facility], 171, cm, 07/22/23 9:22:00 EST, Height/Length [...] Problems Asymptomatic microscopic hematuria / SNOMED CT 2370853927 / Confirmed Bilateral hydronephrosis / SNOMED CT 684207966 / Confirmed BPH with urinary obstruction / SNOMED CT 0385733254 / Confirmed Diabetes / SNOMED CT 211013631 / Confirmed Dysuria / SNOMED CT 73424622 / Confirmed Family history of prostate cancer in father / SNOMED CT 3660057075 / Confirmed Glycosuria / SNOMED CT 44148543 / Confirmed History of kidney stones / SNOMED CT 8243510759 / Confirmed HTN (hypertension) / SNOMED CT 5541666039 / Confirmed Hydroureter / SNOMED CT 433509536 / Confirmed Hydroureteronephrosis / SNOMED CT 25248126 / Confirmed Incomplete bladder emptying / SNOMED CT 795746014 / Confirmed Kidney stones / SNOMED CT 343091123 / Confirmed Microhematuria / SNOMED CT 175771428 / Confirmed Multiple myeloma in remission / SNOMED CT 037045025 / Confirmed Nocturia / SNOMED CT 604974937 / Confirmed Noncompliant bladder / SNOMED CT 9012244565 / Confirmed OAB (overactive bladder) / SNOMED CT 1292878875 / Confirmed Prostate cancer / SNOMED CT 3016433773 / Confirmed Recurrent UTI / SNOMED CT 581839187 / Confirmed Rheumatoid arthritis / SNOMED CT 530941181 / Confirmed Ureteral stricture / SNOMED CT 18850965 / Confirmed UTI (urinary tract infection) / SNOMED CT 165047413 / Confirmed UTI symptoms / SNOMED CT 783961334 / Confirmed Weak urine stream / SNOMED CT 701082085 / Confirmed Resolved: Elevated cholesterol / SNO (more content not included)...[facility] HospitalProceduralProcedural Patient: PATSY MILLS Age: 80 years Sex: Male : 1945 Associated Diagnoses: None Author: Delmar Reeves MD Postoperative Information Postoperative disposition: Postoperative disposition: To PACU. Optimetrix number: Optimetrix number [id number]. Anesthetic utilized: General. Health Status Allergies: Allergic [...] Stable. Plan Transfer/Discharge: Transfer/Discharge Discharge when meets criteria.Normal [facility] W Auto Differential panel (Bld)on 03-04-2025 Basophils (Bld) [#/Vol]10*3/uLNormal<0.11CAshtabula County Medical Center on above:Order Comment: Specimen Type: BLOOD SPECIMEN Ordering Facility: [facility] Address: [address] [place], [place] [address]Performed By: #### 13567-9 #### [facility] CLIA [id number] [address] [place], [place] [address] [place] [address] [place] AMERICABasophils/100 WBC (Bld)0.3 % NormalBlanchard Valley Health [facility] on above:Order Comment: Specimen Type: BLOOD SPECIMEN Ordering Facility: [facility] Address: [address] [place], [place] [address]Performed By: #### 59383-0 #### [facility] CLIA [id number] [address] [place] [address] [place] AMERICADifferential cell count method Nom (Bld)AutoNormalCAshtabula County Medical Center on above:Order Comment: Specimen Type: BLOOD SPECIMEN Ordering Facility: [facility] Address: [address] [place], [place] [address]Performed By: #### 09754-1 #### [facility] CLIA [id number] [address] [place] [address] [place] AMERICAEosinophils (Bld) [#/Vol] 0.30 10*3/uLNormal<0.46[facility] on above:Order Comment: Specimen Type: BLOOD SPECIMEN Ordering Facility: [facility] Address: [address] [place], [place] [address]Performed By: #### 77328-5 #### [facility] CLIA [id number] [address] [place] [address] [place] AMERICAEosinophils/100 WBC (Bld)4.4 %NormalBlanchard Valley Health System [facility] on above:Order Comment: Specimen Type: BLOOD SPECIMEN Ordering Facility: [facility] Address: [address] [place], [place] [address]Performed By: #### 06328-8 #### [facility] CLIA [id number] [address] [place] [address] [place] AMERICAErythrocyte distribution width (RBC) [Ratio]15.2 %High11.5-15.0[facility] on above:Order Comment: Specimen Type: BLOOD SPECIMEN Ordering Facility: [facility] Address: [address] [place], [place] [address]Performed By: #### 00910-0 #### [facility] CLIA [id number] [address] [place] [address] [place] AMERICAHematocrit (Bld) [Volume fraction]31.7 %Low39.0-51.0[facility] on above:Order Comment: Specimen Type: BLOOD SPECIMEN Ordering Facility: [facility] Address: [address] [place], [place] [address]Performed By: #### 83368-1 #### [facility] CLIA [id number] [address] [place] [address] [place] AMERICAHemoglobin (Bld) [Mass/Vol] 10.1 g/dLLow13.0-17.0[facility] on above:Order Comment: Specimen Type: BLOOD SPECIMEN Ordering Facility: [facility] Address: [address] [place], [place] [address]Performed By: #### 74730-4 #### [facility] CLIA [id number] [address] [place] [address] [place] AMERICAImmature granulocytes (Bld) [#/Vol]0.03 10*3/uLNormal<0.10[facility] on above:Order Comment: Specimen Type: BLOOD SPECIMEN Ordering Facility: [facility] Address: [address] [place], [place] [address]Performed By: #### 15276-7 #### [facility] CLIA [id number] [address] [place] [address] [place] AMERICAImmature granulocytes/100 WBC (Bld)0.4 %NormalBlanchard Valley Health System [facility] on above:Order Comment: Specimen Type: BLOOD SPECIMEN Ordering Facility: [facility] Address: [address] [place], [place] [address]Performed By: #### 11640-7 #### [facility] CLIA [id number] [address] [place] [address] [place] AMERICALymphocytes (Bld) [#/Vol] 1.10 10*3/uLNormal1.00-4.00[facility] ClevelandComment on above:Order Comment: Specimen Type: BLOOD SPECIMEN Ordering Facility: [facility] Address: [address] [place], [place] [address]Performed By: #### 49672-0 #### [facility] CLIA [id number] [address] [place] [address] [place] [facility] COUNTY COMMUNITY HOSPITALLymphocytes/100 WBC (Bld) 16.1 %NormalBlanchard Valley Health System [facility] on above:Order Comment: Specimen Type: BLOOD SPECIMEN Ordering Facility: [facility] Address: [address] [place], [place] [address]Performed By: #### 08943-5 #### [facility] CLIA [id number] [address] [place] [address] (RBC) [Entitic mass]34.5 tbPgbh96.0-34.0[facility] on above:Order Comment: Specimen Type: BLOOD SPECIMEN Ordering Facility: [facility] Address: [address] [place], [place] [address]Performed By: #### 02926-6 #### [facility] CLIA [id number] [address] [place] [address] (RBC) [Mass/Vol]31.9 g/rPCehkgt55.5-36.0[facility] on above:Order Comment: Specimen Type: BLOOD SPECIMEN Ordering Facility: [facility] Address: [address] [place], [place] [address]Performed By: #### 62091-6 #### [facility] CLIA [id number] [address] [place], [place] [address] [facility] (RBC) [Entitic vol]108.2 tPXnea86.0-100.0[facility] on above:Order Comment: Specimen Type: BLOOD SPECIMEN Ordering Facility: [facility] Address: [address] [place], [place] [address]Performed By: #### 61696-5 #### [facility] CLIA [id number] [address] [place] [address] [place] AMERICAMonocytes (Bld) [#/Vol]0.46 10*3/uLNormal<0.87[facility] on above:Order Comment: Specimen Type: BLOOD SPECIMEN Ordering Facility: [facility] Address: [address] [place], [place] [address]Performed By: #### [id number] #### [facility] CLIA [id number] [address] [place] [address] [place] AMERICAMonocytes/100 WBC (Bld)6.7 % NormalBlanchard Valley [facility] on above:Order Comment: Specimen Type: BLOOD SPECIMEN Ordering Facility: [facility] Address: [address] [place], [place] [address]Performed By: #### [id number] #### [facility] CLIA [id number] [address] [place] [address] [place] AMERICANeutrophils (Bld) [#/Vol] 4.94 10*3/uLNormal1.45-7.50[facility] on above:Order Comment: Specimen Type: BLOOD SPECIMEN Ordering Facility: [facility] Address: [address] [place], [place] [address]Performed By: #### [id number] #### [facility] CLIA [id number] [address] [place] [address] [place] AMERICANeutrophils/100 WBC (Bld) 72.1 %NormalBlanchard Valley Health System [facility] on above:Order Comment: Specimen Type: BLOOD SPECIMEN Ordering Facility: [facility] Address: [address] [place], [place] [address]Performed By: #### [id number] #### [facility] CLIA [id number] [address] [place] [address] [place] AMERICANucleated RBC (Bld) [#/Vol] 10*3/uLNormal<0.01[facility] on above:Order Comment: Specimen Type: BLOOD SPECIMEN Ordering Facility: [facility] Address: [address] [place], [place] [address]Performed By: #### [id number] #### [facility] CLIA [id number] [address] [place] [address] [place] AMERICANucleated RBC/100 WBC (Bld) [Ratio]0.0 /100 WBCNormalCAshtabula County Medical Center on above:Order Comment: Specimen Type: BLOOD SPECIMEN Ordering Facility: [facility] Address: [address] [place], [place] [address]Performed By: #### [id number] #### [facility] CLIA [id number] [address] [place] [address] [place] AMERICAPlatelet mean volume (Bld) [Entitic vol]10.1 fLNormal9.0-12.7CAshtabula County Medical Center on above: Order Comment: Specimen Type: BLOOD SPECIMEN Ordering Facility: [facility] Address: [address] [place], [place] [address]Performed By: #### [id number] #### [facility] CLIA [id number] [address] [place] [address] [place] AMERICAPlatelets (Bld) [#/Vol]204 10*3/fVSlqspx257-546ObxeyohxtBlanchard Valley Health System [facility] on above:Order Comment: Specimen Type: BLOOD SPECIMEN Ordering Facility: [facility] Address: [address] [place], [place] [address]Performed By: #### [id number] #### [facility] CLIA [id number] [address] [place] [address] [place] AMERICARBC (Bld) [#/Vol]2.93 10*6/uLLow4.20-6.00[facility] on above:Order Comment: Specimen Type: BLOOD SPECIMEN Ordering Facility: [facility] Address: [address] [place], [place] [address]Performed By: #### [id number] #### [facility] CLIA [id number] [address] [place] [address] OF MERCY HEALTHWBC (Bld) [#/Vol]6.85 10*3/uLNormal3.70-11.00[facility] on above:Order Comment: Specimen Type: BLOOD SPECIMEN Ordering Facility: [facility] Address: [address] [place], [place] [address]Performed By: #### [id number] #### [facility] [place] [id number] [address] [place], [place] [address]PT panel Coag (PPP)on 54-93-4111GRQ Coag (PPP) [Relative time]1.0 {INR}Normal0.9-1.3CAshtabula County Medical Center on above:Order Comment: Specimen Type: BLOOD SPECIMEN Ordering Facility: [facility] Address: [address] [place], [place] [address]Result Comment: Vitamin K Antagonist (VKA) Therapeutic Range: INR 2 to 3 (Target INR of 2.5) Note: For patients treated with VKA drugs, such as warfarin, the [employer] 2012 Guideline recommends [...] 2.5 to 3.5 (target INR of 3). Krista GH, et al. Chest 2012, 141:7S-47S Ramona DOHERTY et al. JACC 2017, 70: 252-289Performed By: #### [id number] #### [facility] CLIA [id number] [address] [place], [place] [address]PT Coag (PPP) [Time]10.5 s Normal9.7-13.0[facility] City HospitalCommclaren flint on above:Order Comment: Specimen Type: BLOOD SPECIMEN Ordering Facility: [facility] Address: [address] [place], [place] [address]Performed By: #### 06169-0 #### [facility] CLIA [id number] [address] [place] [address] Urineon 96-28-7068Qjuplbzo identified Cx Nom (U)Microbiology PROCEDURE: Urine Culture [R1] SOURCE: U Cath BODY SITE: COLLECTED DATE/TIME: 02/22/2025 13:22 EDT RECEIVED DATE/TIME: 02/22/2025 19:18 EDT START DATE/TIME: 02/22/2025 19:18 EDT FREE TEXT SOURCE: Pratima Reno PA-C, PA-C, Pratima FINAL REPORTS Final Report [] Verified Date/Time: 02/24/2025 10:51 EDT 40,000 cfu/ml Morganella morganii SUSCEPTIBILITY RESULTS LEGEND: S=Susceptible, N/R=Not Reported, Blank=Data not available, [...] Locations R1: This test was performed at: [facility], [address] [place] [address], [address] , , AfdpzyOgrhnrEast Liverpool City HospitalComment on above:Performed By: #### [id number] #### [facility] [address] [place] [address]BXEIvr [id number] (IRRFV) PATSY MILLS ([id number]) 1945 M Date Time Provider Department 02/24/25 BIBIANA MASTERS [facility] During your visit today, we recorded the following information about you: Bibiana Masters 02/24/2025 1:55 PM Signed Order scanned in [...] anemia [D50.9] 02/11/2023 Encounter Status:Closed by BIBIANA MASTERS on 02/24/25[facility] Ambulatory Visit Summaryon [id number] Visit SummaryAmbulatory Visit Summary PATSY MILLS :1945 Visit Date:02/23/2025 Ambulatory Visit Instructions Your Diagnosis Ureteral stricture Recurrent UTI Prostate cancer Noncompliant bladder BPH with urinary obstruction Incomplete bladder emptying Hydroureteronephrosis Kidney stones Family history of prostate cancer in father Your Care Team Attending Physician - Diego RICKS, Orquidea Taylor Primary Care Physician - HELEN OCHOA MD This Is Your Medications List nitrofurantoin (Macrobid 100 mg Cap) oxybutynin (oxybutynin 10 mg ER Tab) Contact prescribing physician if questions or concerns Non-Formulary Medication (D-mannose) Non-Formulary Medication (iron) aspirin (aspirin 81 mg Chew Tab) atorvastatin (atorvastatin 20 mg Tab) bifidobacterium-lactobacillus (Probiotic + Colostrum) cholecalciferol (Vitamin D3 2000 [...] Cystoscopic removal of ureteric stent (08/20/2012), Cystoscopic ure teroneocystostomy with insertion 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 Discharge Vitals Temperature (Oral) 36.7 ???C Heart Rate (Peripheral) 82 Respiratory Rate 16 Blood Pressure 120/80 Height 178 cm Height 70 in Weight 89.2 kg Weight 196.652 lb BMI 28.15 What to do next Scheduled Follow-Up Appointments Thursday 3:30 PM EDT With: Where: [facility] Thursday 12:45 PM EDT With: Where: [facility] Thursday 11:00 AM EDT With: Pratima Reno PA-C Where: [facility] [address] [place] [address] [place] [address]- You Need to Schedule the Following Appointments Follow Up with Diego RICKS, OUSMANE Bell, URO When: Where: Someone Will Contact You Regarding These Appointments [facility] External Ambulatory Referral, Other Referral, IR at [facility] for BL neph tube placement, 02/23/25 13:39:00 EDT, Ureteral stricture Medications What How Much When Instructions Unchanged nitrofurantoin (Macrobid 100 mg Cap) 1 Capsules By Mouth 2 times a day take 1 cap morningof cath change and 12hrs after Unchanged oxybutynin (oxybutynin 10 mg ER Tab) 1 Tablets By Mouth Every day Unchanged aspirin (aspirin 81 mg Chew Tab) Chewed Every day Contact prescribing physician if questions or concerns Unchanged atorvastatin (atorvastatin 20 mg Tab) 1 Tablets By Mouth Every day Contact prescribing physician if questions or concerns Unchanged bifidobacterium-lactobacillus (Probiotic + Colostrum) By Mouth Every day [...] By Mouth Contact prescribing physician if questions orconcerns Unchanged famotidine (famotidine 20 mg Tab) 1 [...] microscopic hematuria Bilateral hydronephros (more content not included)...[facility] HospitalUrology Office/Clinic Noteon 72-39-0513Ksfyfmz Office/Clinic NoteUrology Office/Clinic Note Chief Complaint 2 mth f/u [...] and history for this patient from Dr. Issa I have reviewed and verified the staff [...] hydronephrosis) 10/14/22 - Crea 1.54. eGFR 44. (gunn in place) Cr up to 2 without gunn 12/08/22 - Cr 1.78. eGFR 37. BUN 30. K 5.0. (with gunn) 12/17/22 - Cr 1.84. eGFR 37. BUN [...] K 4.3. (with stent and SPT) at [facility] due to RINA and UTI 01/22/24 - Cr 2.58. BUN 31. K 4.1. (with stent and SPT) at [facility] due to RINA and UTI 06/08/24 - BUN 36, Cre 2.30, GFR 28 (with bilateral stents and SPT) 07/20/24 - Cre 6.20 08/01/24 - Cre 2.43 BMP 11/11/24 - Cr 3.58, eGFR 16 ANA 09/23/22 - Mild-mod bilateral hydroureteronephrosis. No mass or stones. CT AP wo con 10/02/22 - Mild-mod bilateral hydronephrosis and hydroureter without obstructing stoneor mass. Non-obstructing calculi left kidney measuring 7 mm. Post Gunn Renal US 10/14/22 neg for hydro. ANA 10/30/22 - Mild right pelvocaliectasis, neg for hydro. Pt refused gunn/CIC at that time. Renal US 11/17/22 [facility] - R-sided hydronephrosis and proximal hydroureter. Findings have progressed since prior study. Cr 1.87/ eGFR 36.6 Cath placed 11/21/2022 ANA 12/01/22 - Right hydronephrosis, grossly similar to the prior study despite gunn in place. S/P cysto/RG/ureteroscopy/stent placement/RT ureteral dilation and stent placement 12/10/22. ANA 12/17/22 - Interval resolution of the right sided hydronephrosis since the prior US study. Referred to [facility] urologist for right distal stricture, small capacity bladder with BL VUR 12/19/22. Dr. Jessica Feliciano evaluation -offered Botox, right stent placement and SP tube with plans for bladder augmentation and reimplant if bladder were to increase in size substantially. Patient declinedinvasive definitive treatment. He elected to proceed with chronic indwelling right stent with routine exchanges q3m and SP tube q1m S/p Cysto/R ureteral stent removal/R RGP/R stent placement 03/05/23. 7f x 26cm stent. S/p Cysto/R RGP/Ureteral stent exchange/L ESWL/SPT exchanged 06/10/23. Cont q4m ANA 01/20/24 [facility] - Bilateral mild pelvocaliectasis L>R. S/p cysto, R RPG, stent exchange, SP tube exchange, TP prostate bx, TRUS 06/01/24. Urology consult 06/03/24 due to moderat (more content not included)...Normal Grant HospitalComment on above:Result Comment: Electronically Signed By: Orquidea Issa MD\.br\Date and Time Signed: 02/23/25 13:44 EDT\.br\Electronically Co-Signed By: Aleah Starr\.br\Date and Time Co- Signed: 02/23/25 13:38 EDTAmbulatory Visit Summaryon [id number] Visit SummaryAmbulatory Visit Summary PATSY MILLS :1945 Visit Date:02/22/2025 Ambulatory Visit Instructions Your Diagnosis UTI symptoms Urinary retention Your Care Team Attending Physician - Shadia COOPER, Pratima Primary Care Physician - DON RICKS, HELEN This Is Your Medications List Non-Formulary Medication (D-mannose) Non-Formulary Medication (iron) aspirin (aspirin 81 mg Chew Tab) atorvastatin (atorvastatin 20 mg Tab) bifidobacterium-lactobacillus (Probiotic + Colostrum) cholecalciferol (Vitamin D3 2000 [...] Cystoscopic removal of ureteric stent (08/20/2012), Cystoscopic ure teroneocystostomy with insertion 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 What to do next Scheduled Follow-Up Appointments 2024 1:00 PM EDT With: Diego RICKS, Orquidea Taylor Where: [facility] [address], [address] [place] [address]- Thursday 11:00 AM EDT With: Pratima Reno PA-C Where: [facility] [address] [place] [address] [place] [address]- Medications What How Much When Instructions Unchanged aspirin (aspirin 81 mg Chew Tab) Chewed Every day Unchanged atorvastatin (atorvastatin 20 mg Tab) 1 Tablets By Mouth Every day Unchanged bifidobacterium-lactobacillus (Probiotic + Colostrum) By Mouth Every day [...] 2 times a day take 1 cap morningof cath change and 12hrs after Unchanged Non-Formulary [...] signed up for this yet, please contact [employer] at [phone] to get signed up today. Language Information Language assistance services are available as needed. [facility] City HospitalAppearance of UrineOrdered By: Brook Huddleston on 51-96-0084Lelihbnfwu (U)TurbidCritically abnormalMercy Health Fairfield HospitalComment on above:Order Comment: Name Collection Type:: Suprapubic CollectionPerformed By: #### GLULS #### Point of Care testing ,Bacteria [Presence] in Urine by AutomatedOrdered By: Brook Huddleston on 02-08-2025 Bacteria Auto Ql (U)2+ [HPF]HighNone [facility] Bilirubin Test strip Ql (U)Ordered By: Brook Huddleston on 60-50-9463Nxiqmgyas Ql (U) NegativeNegativeHolzer Medical Center – JacksonColor of Urine by AutoOrdered By: Brook Huddleston on 01-66-1889Yawzg (U)Light-orangeCritically abnormalEast Ohio Regional HospitalComment on above:Order Comment: Name Collection Type:: Suprapubic CollectionPerformed By: #### GLULS #### Point of Care testing ,Dipstick and Microscopicon 88-50-1793Nhhlgzlt,Urine2+ [HPF]NormalNone [facility] Physician GroupComment on above:Order Comment: Name Collection Type:: Suprapubic CollectionPerformed By: #### GLULS #### Point of Care testing ,Bilirubin,UrineNegativeNormalNegativeThe [facility] Physician GroupComment on above:Order Comment: Name Collection Type:: Suprapubic CollectionPerformed By: #### GLULS #### Point of Care testing ,Budding Yeast,Urine4+ [HPF]NormalNone SeenThe [facility] Chatham Physician GroupComment on above:Order Comment: Name Collection Type:: Suprapubic CollectionResult Comment: PERFORMED BY: [address] [place] [address] PATHOLOGIST DOCK SUPERINTENDENT LUISF ELIPE MARSH M.D.Performed By: #### GLULS #### Point of Care testing ,Glucose Ql (U)100 mg/dLNormalNoalThSt. Luke's McCall Physician GroupComment on above:Order Comment: Name Collection Type:: Suprapubic CollectionPerformed By: #### GLULS #### Point of Care testing ,Hyaline Casts,UrineNoneNormal0-8The [facility]atham Physician GroupComment on above: Order Comment: Name Collection Type:: Suprapubic CollectionPerformed By: #### GLULS #### Point of Care testing ,Nitrite,UrinePositiveNormalNegativeThe [facility] Physician GroupComment on above:Order Comment: Name Collection Type:: Suprapubic CollectionPerformed By: #### GLULS #### Point of Care testing ,Occult Blood,Urine3+NormalNegativeThe [facility] Physician GroupComment on above:Order Comment: Name Collection Type:: Suprapubic CollectionResult Comment: PERFORMED BY: [address] [place] [address] PATHOLOGIST DOCK SUPERINTENDENT LUIS FELIPE MARSH M.D.Performed By: #### GLULS #### Point of Care testing ,RBC,Cfsvd94-100Ivhqhz9-3Ubn [facility] Physician GroupComment on above:Order Comment: Name Collection Type:: Suprapubic CollectionPerformed By: #### GLULS #### Point of Care testing ,Specificy Fertile,Urine1.900Makqen8.001-1.030The [facility] Comment on above:Order Comment: Name Collection Type:: Suprapubic Collection Performed By: #### GLULS #### Point of Care testing ,Urobilinogen,UrineNormalNormalNormalThe [facility] Physician GroupComment on above:Order Comment: Name Collection Type:: Suprapubic CollectionPerformed By: #### GLULS #### Point of Care testing ,WBC CLUMP, UrineOccasionalNormalNone SeenThe [facility] Physician GroupComment on above:Order Comment: Name Collection Type:: Suprapubic CollectionPerformed By: #### GLULS #### Point of Care testing ,WBC,UrineInnumerableNormal0-4The [facility] Physician GroupComment on above: Order Comment: Name Collection Type:: Suprapubic CollectionPerformed By: #### GLULS #### Point of Care testing ,Epithelial cells.squamous [#/area] in Urine sediment by Automated countOrdered By: Brook Huddleston on 42-83-7679Ysoxuxdkcs cells.squamous Auto (Urine sed) [#/Area] N/[facility]ome[facility] Memorial HospitalErythrocytes [#/area] in Urine sediment by Automated countOrdered By: Brook Huddleston on 31-99-8447WMU Auto (Urine sed) [#/Area] 50-100 [HPF]High04FChildren's Hospital for RehabilitationGlucose [Mass/volume] in Urine by Test stripOrdered By: Brook Huddleston on 53-08-9134Efvmvgk Test strip (U) [Mass/Vol]100 mg/dLHighNormalHolzer Medical Center – JacksonHemoglobin Test strip Ql (U)Ordered By: Brook Huddleston on 33-27-2752Syghjihnxf Ql (U)3+HighNegative [facility] Center – JacksonHyaline casts [#/area] in Urine sediment by Automated countOrdered By: Brook Huddleston on 35-16-6389Drrjxbd casts Auto (Urine sed) [#/Area]None [LPF]0-8Hol[facility] Medical Center – JacksonKetones [Presence] in Urine by Test stripOrdered By: Brook Huddleston on 92-45-9473Caiatoa Ql (U)Negative NormalNegativeHolzer Medical Center – JacksonComment on above:Order Comment: Name Collection Type:: Suprapubic CollectionPerformed By: #### GLULS #### Point of Care testing ,Leukocyte clumps [Presence] in Urine by AutomatedOrdered By: Brook Huddleston on 89-00-9067Iifoempng clumps Auto Ql (U)Occasional [LPF]HighNone SeenHolzer Medical Center – JacksonLeukocyte esterase [Presence] in Urine by Test strip Ordered By: Brook Huddleston on 82-65-0538Dvndlxumt esterase Test strip Ql (U)4+Normal NegativeHolzer Medical Center – JacksonComment on above:Order Comment: Name Collection Type:: Suprapubic CollectionPerformed By: #### GLULS #### Point of Care testing ,Leukocytes [#/area] in Urine sediment by Automated countOrdered By: Brook Huddleston on 95-73-0378JGU Auto (Urine sed) [#/Area]Innumerable [HPF]High04FChildren's Hospital for RehabilitationNitrite Test strip Ql (U)Ordered By: Brook Huddleston on 17-18-7911Uawveba Ql (U)PositiveHighUniversity Hospitals Conneaut Medical Center Protein [Mass/volume] in Urine by Test stripOrdered By: Brook Huddleston on 02-08-2025 Protein (U) [Mass/Vol]100 mg/dLNoalNegProMedica Fostoria Community Hospital Comment on above:Order Comment: Name Collection Type:: Suprapubic Collection Performed By: #### GLULS #### Point of Care testing ,Specific gravity Test strip (U) [Rel density]Ordered By: Brook Huddleston on 82-86-1840Irvuuvrs gravity (U) [Rel density]1.0161.001-1.030[facility] Center – JacksonUrinalysis complete panel (U)on 35-59-7349Gpysgeludl (U)Turbid Critically abnormalClearNOMS HealthcareBILIRUBIN,URINENegativeNegativeNOMS HealthcareColor (U)Light-OrangeCritically abnormalYellowNOMS HealthcareGlucose Ql (U)100 mg/dLNormalNOMS HealthcareInterpretation and review of laboratory resultsAbnormalNOMS HealthcareKetones Ql (U)NegativeNegativeNOMS Healthcare Leukocyte esterase Test strip Ql (U)4+NegativeNOMS HealthcareNITRITE,URINE PositiveNegativeNOMS HealthcareOCCULT BLOOD,URINE3+NegativeCooper County Memorial HospitalpH (U) 6.5 [pH]5.0 - 9.0Co[facility] Memorial HospitalProtein (U) [Mass/Vol]100 mg/dLNegativeCooper County Memorial HospitalSPECIFICY GRAVITY,URINE1.0161.001 - 1.030[facility] UROBILINOGEN,URINENormalNormal mg/dLCooper County Memorial HospitalName Collection Type:: Suprapubic CollectionFIRHorsham ClinicUrine Cultureon 43-97-4803Xabqrgqq identified Cx Nom (U)ORGANISM: Morganella morganii MDRO (O:MORMORMDRO) [place] Count >100,000 ORGANISM: Staphylococcus aureus (O:STAAUR) [place] Count >100,000 Aerobic DEEPA Charge (NMIC56) SUSCEPTIBILITY ORGANISM: O:MORMORMDRO ANTIBIOTIC INTERPRETATION DEEPA Amikacin S <16 Amoxacillin/K Clavulanate R >16 Ampicillin R >16 Ampicillin/Sulbactam I 1616/8 Aztreonam I <4 Cefazolin R >16 Cefepime S <2 Ceftazidime I <1 Ceftazidime/Avibactam S <4 Ceftolozane/Tazobactam S <2 Ceftriaxone I <1 Cefuroxime R >16 Ciprofloxacin S <0.25 Ertapenem S <0.5 Gentamicin S <2 Levofloxacin S <0.5 Meropenem S <1 Meropenem/Vaborbactam S <2 Nitrofurantoin R 64 Piperacillin/Tazobactam I <8 Tetracycline R >8 Tigecycline R <2 Tobramycin S <2 Trimethoprim/Sulfamethoxazole S <0.5 Aerobic DEEPA Charge (PCMIC38) SUSCEPTIBILITY ORGANISM: O:STAAUR ANTIBIOTIC INTERPRETATION DEEPA Ceftaroline S <0.5 Ciprofloxacin R >2 Daptomycin S <0.5 Levofloxacin R >4 Linezolid S 2 Nitrofurantoin S <32 Oxacillin S <0.25 Penicillin R >2 Tetracycline S <4 Trimethoprim/Sulfamethoxazole R >2 Vancomycin S 1 S = SUSCEPTIBLE I = INTERMEDIATE R = RESISTANT BLANK = DATA NOT AVAILABLE, OR DRUG NOT ADVISABLE OR TESTED R* = RESISTANCE DUE TO EXTENDED SPECTRUM BETA-LACTAMASES ESBL = EXTENDED SPECTRUM BETA-LACTAMASE TFG = THYMIDINE-DEPENDENT STRAIN RADHA = BETA-LACTAMASE POSITIVE IB = INDUCIBLE BETA-LACTAMASE. APPEARS IN PLACE OF 'S' WITH SPECIES KNOWN TO POSSESS INDUCIBLE BETA-LACTAMASES. POTENTIALLY THEY MAY BECOME RESISTANT TO ALL B-LACTAM DRUGS. PERFORMED BY: [facility] [address] [place] [address] PATHOLOGIST DOCK SUPERINTENDENT LUIS FELIPE MARSH M.D.NormalBayfront Health St. Petersburg Physician GroupComment on above: Performed By: #### GLULS #### Point of Care testing ,Urine cultureOrdered By: Brook Huddleston on 43-37-1130Rfenubep identified Cx Nom (U) Morganella morganii MDROAbnAdams County HospitalBacteria identified Cx Nom (U)Staphylococcus aureusAbnoProMedica Fostoria Community HospitalUrobilinogen Test strip (U) [Mass/Vol]Ordered By: Brook Huddleston on 02-08-2025 Urobilinogen (U) [Mass/Vol]Normal mg/dLNoProMedica Fostoria Community Hospital Yeast.budding [Presence] in Urine by Computer assisted methodOrdered By: Brook Huddleston on 48-73-7900Nuusu.budding Computer assisted Ql (U)4+ [HPF]HighNone Seen [facility] – JacksonpH of Urine by Test stripOrdered By: Brook Huddleston on 73-79-1298dA (U)6.5 [pH]Normal5.0-9.0[facility] Center – JacksonComment on above:Order Comment: Name Collection Type:: Suprapubic CollectionPerformed By: #### GLULS #### Point of Care testing ,Ambulatory Visit Summaryon [id number] Visit SummaryAmbulatory Visit Summary MILLS PATSY G :1945 Visit Date:02/01/2025 Ambulatory Visit Instructions Your Care Team Attending Physician - Shadia COOPER, Pratima Primary Care Physician - DON RICKS, HELEN This Is Your Medications List Non-Formulary Medication (D-mannose) Non-Formulary Medication (iron) aspirin (aspirin 81 mg Chew Tab) atorvastatin (atorvastatin 20 mg Tab) bifidobacterium-lactobacillus (Probiotic + Colostrum) cholecalciferol (Vitamin D3 2000 [...] Cystoscopic removal of ureteric stent (08/20/2012), Cystoscopic ure teroneocystostomy with insertion 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 What to do next Scheduled Follow-Up Appointments 2024 1:00 PM EDT With: Diego RICKS, Orquidea Taylor Where: [facility] [address], [address] [place] [address]- Medications What How Much When Instructions Unchanged aspirin (aspirin 81 mg Chew Tab) Chewed Every day Unchanged atorvastatin (atorvastatin 20 mg Tab) 1 Tablets By Mouth Every day Unchanged bifidobacterium-lactobacillus (Probiotic + Colostrum) By Mouth Every day [...] 2 times a day take 1 cap morningof cath change and 12hrs after Unchanged Non-Formulary [...] you for choosing us for your care. [facility] City HospitalAlanine aminotransferase [Enzymatic activity/volume] in Serum or PlasmaOrdered By: Brook Huddleston on 18-78-7189JSX [Catalytic activity/Vol]13 U/LNormal7-52[facility] – JacksonComment on above:Performed By: #### GLULS #### Point of Care testing ,Albumin [Mass/volume] in Serum or Plasma by Bromocresol green (BCG) dye binding methoOrdered By: Brook Flaquito on 54-58-1459Hnmspoj BCG dye [Mass/Vol]3.8 g/dL 3.5-5.7FChildren's Hospital for RehabilitationAlkaline phosphatase [Enzymatic activity/volume] in Serum or PlasmaOrdered By: Brook Flaquito on 99-96-3030GGG [Catalytic activity/Vol]110 U/YOvsb88-374LfhndvihmHolzer Medical Center – Jackson Comment on above:Performed By: #### GLULS #### Point of Care testing ,Aspartate aminotransferase [Enzymatic activity/volume] in Serum or Plasma Ordered By: Brook Huddleston on 78-36-4984CIK [Catalytic activity/Vol]15 U/NMjlqqh36-95 [facility] – JacksonComment on above:Performed By: #### GLULS #### Point of Care testing ,Basophils [#/volume] in Blood by Automated countOrdered By: Brook Huddleston on 84-48-3808Subtokrya (Bld) [#/Vol]0.0 10*3/uLNormal0.0-0.2FChildren's Hospital for RehabilitationComment on above:Result Comment: PERFORMED BY: [facility] [address] [place] [address] PATHOLOGIST DOCK SUPERINTENDENT LUIS FELIPE MARSH M.D.Performed By: #### GLULS #### Point of Care testing ,Basophils/100 leukocytes in Blood by Automated countOrdered By: Brook Huddleston on 12-17-7513Rgwdcaiub/100 WBC (Bld)0.2 %Normal.[facility] Comment on above:Performed By: #### GLULS #### Point of Care testing ,Bilirubin.total [Mass/volume] in Serum or PlasmaOrdered By: Brook Huddleston on 47-99-6352Eehrfrkrg [Mass/Vol]0.5 mg/dLNormal0.3-1.0[facility] – JacksonComment on above:Performed By: #### GLULS #### Point of Care testing ,CBC W Auto Differential panel (Bld)on 47-15-1270Zsyqwvizu (Bld) [#/Vol]0 10*3/uL0.0 - 0.2 10*3/uLNOMS HealthcareBasophils/100 WBC Manual cnt (Syn fld)0.2 %.[facility] HealthcareEosinophils (Bld) [#/Vol]0.3 10*3/uL0.0 - 0.45 10*3/uLNOUT HealthcareEosinophils/100 WBC Manual cnt (Syn fld)4.8 %.[facility] Erythrocyte distribution width (RBC) [Ratio]16.2 %High12.0 - 14.8 %[facility] HospitalHematocrit (Bld) [Volume fraction]30 %Low38.8 - 50.0 %[facility] Hemoglobin (Bld) [Mass/Vol]10.1 g/dLLow13.0 - 17.0 g/dLCooper County Memorial Hospital Interpretation and review of laboratory resultsAbnormGuthrie [facility] Lymphocytes (Bld) [#/Vol]1 10*3/uL1.00 - 4.8 10*3/uLNOUT Healthcare Lymphocytes/100 WBC Manual cnt (Syn fld)14.3 %.[facility] CenterH (RBC) [Entitic mass]34.8 pg27.5 - 35.2 pgSSM DePaul Health CenterHC (RBC) [Mass/Vol]33.8 g/dL32.5 - 35.6 g/dLCooper County Memorial HospitalMCV (RBC) [Entitic vol]102.9 dBYlhk05.5 - 101 fLCooper County Memorial HospitalMonocytes (Bld) [#/Vol]0.5 10*3/uL0.0 - 0.8 10*3/uLACADIA HEALTHCARE Healthcare Monocytes+Macrophages/100 WBC Manual cnt (Syn fld)6.8 %.[facility] Neutrophils (Bld) [#/Vol]5.1 10*3/uL1.8 - 7.7 10*3/uLNOUT Healthcare Neutrophils/100 WBC Manual cnt (Syn fld)73.9 %.[facility] HospitalNRBC0 /100{WBC}0 - 0.5 /100{WBC}[facility] HospitalPlatelet mean volume (Bld) [Entitic vol]7.6 fL6.6 - 10.1 fLACADIA HEALTHCARE HealthcarePlatelets (Bld) [#/Vol]212 10*3/uL150 - 450 10*3/uLCooper County Memorial HospitalRBC LM.HPF (Urine sed) [#/Area]2.91 10*6/uLLow3.90 - 5.60 10*6/uLNOMS HealthcareWBC (Bld) [#/Vol]6.9 10*3/uL4.1 - 10.5 10*3/uLNOMS HealthcareWBC LM.HPF (Urine sed) [#/Area]6.9 10*3/uL4.1 - 10.5 10*3/uLNOMS HealthcareNOMS HealthcareCalcium [Mass/volume] in Serum or PlasmaOrdered By: Brook Huddleston on 24-34-2500Iaeiwsd [Mass/Vol]8.6 mg/dLNormal8.6-10.3FChildren's Hospital for RehabilitationComment on above:Performed By: #### GLULS #### Point of Care testing ,Carbon dioxide, total [Moles/volume] in Serum or PlasmaOrdered By: Brook Huddleston on 19-27-3652AN3 [Moles/Vol]24.7 mmol/NFfhwnf17.0-31.0[facility] – JacksonComment on above:Performed By: #### GLULS #### Point of Care testing ,Chloride [Moles/volume] in Serum or PlasmaOrdered By: Brook Huddleston on 01-30-2025 Chloride [Moles/Vol]106 mmol/TKggqbz09-873PbqgmamwjHolzer Medical Center – Jackson Comment on above:Performed By: #### GLULS #### Point of Care testing ,Complete Blood Count Auto Diffon 42-06-9500Uiwp Corpuscular HGB Conc33.8 g/dL Cdkimo67.5-35.6The [facility] Hospital Of MeridianComment on above:Performed By: #### GLULS #### Point of Care testing ,NRBC%0.0 /100{WBC}Normal0-0.5The [facility] Physician [facility] Hospital Of MeridianComment on above: Performed By: #### GLULS #### Point of Care testing ,Comprehensive Metabolic Panelon 52-43-1312Eehtkqm [Mass/Vol]3.8 g/dLNormal 3.5-5.7The [facility] Physician [facility] Hospital Of MeridianComment on above:Performed By: #### GLULS #### Point of Care testing ,Creatinine Clr Calc Jvckgbng16.89NormalThe Firelands Physician GroupComment on above:Result Comment: PERFORMED BY: [facility] [place] [address] PATHOLOGIST DOCK SUPERINTENDENT LUIS FELIPE MARSH M.D.Performed By: #### GLULS #### Point of Care testing ,Estimated GFR31.977 mL/MinTampa Shriners Hospital Physician GroupComment on above: Performed By: #### GLULS #### Point of Care testing ,Comprehensive metabolic panelon 21-77-8682Iultora [Mass/Vol]3.8 g/dL3.5 - 5.7 g/dLNOMS HealthcareAlbumin/Globulin [Mass ratio]1.4 {ratio}NOMS HealthcareALP [Catalytic activity/Vol]110 U/LHigh34 - 104 U/LNOMS HealthcareALT [Catalytic activity/Vol]13 U/L7 - 52 U/LNOMS HealthcareAnion gap [Moles/Vol]9.5 mmol/L6.0 - 15.0 meq/LNOMS HealthcareAST [Catalytic activity/Vol]15 U/L13 - 39 U/LNOMS HealthcareBilirubin [Mass/Vol]0.5 mg/dL0.3 - 1.0 mg/dLNOMS HealthcareCalcium [Mass/Vol]8.6 mg/dL8.6 - 10.3 mg/dLNOMS HealthcareChloride [Moles/Vol]106 mmol/L 98 - 107 mmol/LNOMS HealthcareCO2 [Moles/Vol]24.7 mmol/L21.0 - 31.0 mmol/LNOMS HealthcareCreatinine (U) [Mass/Vol]2.07 mg/dLHigh0.70 - 1.30 mg/dLNOMS HealthcareCREATININE CLR CALC JVSZBZEP63.89NOMS HealthcareGFR/1.73 sq M.predicted MDRD (S/P/Bld) [Vol rate/Area]31.977 mL/min/{1.73_m2}mL/MinNOMS HealthcareGlobulin (S) [Mass/Vol]2.7 g/dLNOMS HealthcareGlucose [Mass/Vol]109 mg/lTFckf54 - 100 mg/dLNOMS HealthcareComment on above:Random Glucose Reference Range is dependent on time and content of last meal. Glucose of more than 200 mg/dL in a nonstressed, ambulatory subject supports the diagnosis of Diabetes Mellitus. ADA recommended reference range Interpretation and review of laboratory resultsAbnormalNOMS HealthcarePotassium [Moles/Vol]4.2 mmol/L3.5 - 5.1 mmol/LNOMS HealthcareProtein [Mass/Vol]6.5 g/dL 6.4 - 8.9 g/dLNOMS HealthcareSodium [Moles/Vol]136 mmol/L136 - 145 mmol/LNOMS HealthcareUrea nitrogen [Mass/Vol]23 mg/dL7 - 25 mg/dLNOMS HealthcareNOMS HealthcareCreatinine [Mass/volume] in Serum or PlasmaOrdered By: Brook Huddleston on 55-99-8291Uaxxoshmxm [Mass/Vol]2.07 mg/dLHigh0.70-1.30[facility] – JacksonComment on above:Performed By: #### GLULS #### Point of Care testing ,Eosinophils [#/volume] in Blood by Automated countOrdered By: Brook Huddleston on 33-65-4266Qyrhkmbzxhf (Bld) [#/Vol]0.3 10*3/uLNormal0.0-0.45[facility] – JacksonComment on above:Performed By: #### GLULS #### Point of Care testing ,Eosinophils/100 leukocytes in Blood by Automated countOrdered By: Brook Huddleston on 96-39-8770Fluirydmjox/100 WBC (Bld)4.8 %Normal.[facility] Comment on above:Performed By: #### GLULS #### Point of Care testing ,Erythrocyte distribution width [Ratio] by Automated countOrdered By: Brook Huddleston on 27-83-5801Bnasumxuhna distribution width (RBC) [Ratio]16.2 %High12.0-14.8 [facility] – JacksonComment on above:Performed By: #### GLULS #### Point of Care testing ,Erythrocytes [#/volume] in Blood by Automated countOrdered By: Brook Huddleston on 13-27-8253UIU (Bld) [#/Vol]2.91 10*6/uLLow3.90-5.60[facility] – JacksonComment on above:Performed By: #### GLULS #### Point of Care testing ,Free K+L LT Chains, Qn, Son 97-05-0984Qyqy [place] Light Chains, S43.3 mg/LNormal 3.3-19.4The [facility] Physician GroupComment on above:Performed By: #### GLULS #### Point of Care testing ,Free Lambda Light Chains, S33.1 mg/LNormal5.7-26.3[facility] Comment on above:Performed By: #### GLULS #### Point of Care testing ,[place]/Lambda Ratio, S1.89Riurms8.26-1.65The [facility]ician [facility] Hospital Of MeridianComment on above:Result Comment: Performed at: - [facility] [id number] Trapeze Artist: Melchor Agrawal PhD, Phone: [phone] PERFORMED BY: [address] [address] PATHOLOGIST DOCK SUPERINTENDENT LUIS FELIPE MARSH M.D.Performed By: #### GLULS #### Point of Care testing ,Glucose [Mass/volume] in Serum or PlasmaOrdered By: Brook Huddleston on 01-30-2025 Glucose [Mass/Vol]109 mg/hTBpzg49-226TpopondcpHolzer Medical Center – JacksonComment on above:ADA recommended reference rangeRandom Glucose Reference Range is dependent on time and content of last meal. Glucose of more than 200 mg/dL in a nonstressed, ambulatory subject supports the diagnosisof Diabetes Mellitus. Result Comment: Random Glucose Reference Range is dependent on time and content of last meal. Glucose of more than 200 mg/dL in a nonstressed, ambulatory subject supports the diagnosis of Diabetes Mellitus. ADA recommended reference rangePerformed By: #### GLULS #### Point of Care testing ,Hematocrit [Volume Fraction] of Blood by Automated countOrdered By: Brook Huddleston on 53-50-4371Rmcaatvpaz (Bld) [Volume fraction]30.0 %Low38.8-50.0[facility] – JacksonComment on above:Performed By: #### GLULS #### Point of Care testing ,Hemoglobin [Mass/volume] in BloodOrdered By: Brook Huddleston on 46-48-2823Kljwpekjtk (Bld) [Mass/Vol]10.1 g/dLLow13.0-17.0[facility] – JacksonComment on above:Performed By: #### GLULS #### Point of Care testing ,Immunofixation,Serumon 55-78-4327Ylbxwagyywiwgj, SerumCommentCritically abnormal.The [facility] Physician GroupComment on above:Result Comment: Immunofixation shows IgG monoclonal protein with kappa light chain specificity. PLEASE NOTE: Samples from patients receiving DARZALEX(R) (daratumumab) or SARCLISA(R)(isatuximab-irfc) treatment can appear as an IgG kappa and mask a complete response (CR). If this patient is receiving these therapies, this JOSE C assay interference can be removed by ordering test number 130460- Immunofixation, Daratumumab-Specific, Serum or [id number]- Immunofixation, Isatuximab-Specific, Serum and submitting a new sample for testing or by calling the lab to add this test to the current sample. Lambda appears asymmetrical.Performed By: #### GLULS #### Point of Care testing ,Immunoglobulin A, Jxveu526 mg/jGEvqmfi74-751Oop [facility] Comment on above:Performed By: #### GLULS #### Point of Care testing ,Immunoglobulin G1146 mg/jJGncgnz801-6513Spb [facility] Physician GroupComment on above:Performed By: #### GLULS #### Point of Care testing ,Immunoglobulin M, Serum53 mg/hKFrfori75-290Bwq [facility] Physician GroupComment on above:Result Comment: Performed at: - [facility] [id number] Trapeze Artist: Melchor Agrawal PhD, Phone: [phone] By: #### GLULS #### Point of Care testing ,Leukocytes [#/volume] corrected for nucleated erythrocytes in Blood by Automated counOrdered By: Brook Huddleston on 79-39-8664OXK corrected for nucl RBC Auto (Bld) [#/Vol]6.9 10*3/uL4.1-10.5FChildren's Hospital for RehabilitationLeukocytes [#/volume] in Blood by Automated countOrdered By: Brook Huddleston on 45-75-8501RLS (Bld) [#/Vol]6.9 10*3/uLNormal4.1-10.5FChildren's Hospital for RehabilitationComment on above:Performed By: #### GLULS #### Point of Care testing ,Lymphocytes [#/volume] in Blood by Automated countOrdered By: Brook Huddleston on 71-75-1054Vknpetcpmhm (Bld) [#/Vol]1.0 10*3/uLNormal1.00-4.8[facility] JacksonComment on above:Performed By: #### GLULS #### Point of Care testing ,Lymphocytes/100 leukocytes in Blood by Automated countOrdered By: Brook Huddleston on 90-41-0293Uxrririupck/100 WBC (Bld)14.3 %Normal.[facility] – JacksonComment on above:Performed By: #### GLULS #### Point of Care testing ,MCH [Entitic mass] by Automated countOrdered By: Brook Huddleston on 15-84-7897OVZ (RBC) [Entitic mass]34.8 hjByifnj35.5-35.2FChildren's Hospital for Rehabilitation Comment on above:Performed By: #### GLULS #### Point of Care testing ,MCHC Auto (RBC) [Mass/Vol]Ordered By: Brook Huddleston on 30-57-4872MBBB (RBC) [Mass/Vol]33.8 g/dL32.5-35.6FChildren's Hospital for RehabilitationMCV [Entitic volume] by Automated countOrdered By: Brook Huddleston on 42-79-0702WCM (RBC) [Entitic vol]102.9 mDMxmu56.5-101[facility] – JacksonComment on above: Performed By: #### GLULS #### Point of Care testing ,Monocytes [#/volume] in Blood by Automated countOrdered By: Brook Huddleston on 22-91-3778Vrunwyanl (Bld) [#/Vol]0.5 10*3/uLNormal0.0-0.8[facility] JacksonComment on above:Performed By: #### GLULS #### Point of Care testing ,Monocytes/100 leukocytes in Blood by Automated countOrdered By: Brook Huddleston on 47-37-4146Btmzddxfx/100 WBC (Bld)6.8 %Normal.[facility] Comment on above:Performed By: #### GLULS #### Point of Care testing ,Neutrophils [#/volume] in Blood by Automated countOrdered By: Brook Huddleston on 99-63-8276Adfqebypdmi (Bld) [#/Vol]5.1 10*3/uLNormal1.8-7.7FChildren's Hospital for RehabilitationComment on above:Performed By: #### GLULS #### Point of Care testing ,Neutrophils/100 leukocytes in Blood by Automated countOrdered By: Brook Huddleston on 24-50-5781Risqvxblszt/100 WBC (Bld)73.9 %Normal.[facility] – JacksonComment on above:Performed By: #### GLULS #### Point of Care testing ,No Panel InformationOrdered By: Brook Huddleston on 27-93-4590Bqgdqgazo GFR (CKD-EPI) 31.977 mL/[facility] Creat[facility] Clear[facility] (Chem[address] [place], [place] [address]Protein Electrophoresis M-Anselmo Comment: g/dLNot [facility]wide Children's HospitalComment on above:SPE shows asymmetrical gamma. Suggest serum JOSE C and free lightchain analysis for further evaluation.Protein Electrophoresis NoteComment.[facility] – JacksonComment on above:Protein electrophoresis scan will follow via computer,mail, or camera supervisor delivery.Performed at: [employer] [facility] [id number] Director: Melchor Agrawal PhD, Phone: [phone] 31.977 mL/[facility]33.89[facility] – JacksonComment: g/dLNot Nationwide Children's HospitalComment. [facility] – JacksonNucleated erythrocytes [Presence] in Blood by Automated countOrdered By: Brook Huddleston on 03-57-7211Qeutzarzw RBC Auto Ql (Bld)0.0 /100{WBC}0-0.5FChildren's Hospital for RehabilitationPlatelet mean volume [Entitic volume] in Blood by Automated countOrdered By: Brook Flaquito on 60-06-1810Ifgthycx mean volume (Bld) [Entitic vol]7.6 fLNormal6.6-10.1FChildren's Hospital for RehabilitationComment on above:Performed By: #### GLULS #### Point of Care testing ,Platelets [#/volume] in Blood by Automated countOrdered By: Brook Flaquito on 80-43-5393Iyyvzrtmq (Bld) [#/Vol]212 10*3/pAItbjwp154-710FgarlwmszHolzer Medical Center – JacksonComment on above:Performed By: #### GLULS #### Point of Care testing ,Potassium [Moles/volume] in Serum or PlasmaOrdered By: Brook Huddleston on 01-30-2025 Potassium [Moles/Vol]4.2 mmol/LNormal3.5-5.1FChildren's Hospital for Rehabilitation Comment on above:Performed By: #### GLULS #### Point of Care testing ,Protein Electrophoresis, Serumon 85-77-5180Dydoe-1-Globulin0.3 g/dLNormal 0.0-0.4The [facility] Physician GroupComment on above:Performed By: #### GLULS #### Point of Care testing ,Nnulz-2-Uznonpkk4.8 g/dLNormal0.4-1.0The [facility] Physician GroupComment on above:Performed By: #### GLULS #### Point of Care testing ,Beta Globulin0.9 g/dLNormal0.7-1.3The [facility] Physician GroupComment on above:Performed By: #### GLULS #### Point of Care testing ,Gamma Globulin1.0 g/dLNormal0.4-1.8The [facility] Physician GroupComment on above:Performed By: #### GLULS #### Point of Care testing ,M-SpikeComment:NormalNot ObservedThe [facility] Physician GroupComment on above: Result Comment: SPE shows asymmetrical gamma. Suggest serum JOSE C and free light chain analysis for further evaluation.Performed By: #### GLULS #### Point of Care testing ,SPE-NoteCommentNormal.The [facility] Physician GroupComment on above:Result Comment: Protein electrophoresis scan will follow via computer, mail, or camera supervisor delivery. Performed at: [facility] InstallMonetizerHenry [facility] [address], [place] [id number] Trapeze Artist: Melchor Agrawal PhD, Phone: [phone] By: #### GLULS #### Point of Care testing ,Protein [Mass/volume] in Serum or PlasmaOrdered By: Brook Huddleston on 01-30-2025 Protein [Mass/Vol]6.5 g/dLNormal6.0-8.5FChildren's Hospital for RehabilitationComment on above:Performed By: #### GLULS #### Point of Care testing ,Serum free kappa light chain measurementOrdered By: Brook Huddleston on 01-30-2025 Immunoglobulin light chains.kappa.free (S) [Mass/Vol]43.3 mg/LHigh3.3-19.4 [facility] Hospitalerum globulin measurement (mass/volume)Ordered By: Brook Huddleston on 58-70-6273Voytivnv (S) [Mass/Vol]3.1 g/dLNormal2.2-3.9 [facility] JacksonComment on above:Performed By: #### GLULS #### Point of Care testing ,Serum globulin measurement by calculation (mass/volume)Ordered By: Brook Huddleston on 15-46-1659Jxokaelf (S) [Mass/Vol]2.7 g/dLNormalHolzer Medical Center – JacksonComment on above:Performed By: #### GLULS #### Point of Care testing ,Serum immunoglobulin free kappa light chains/immunoglobulin free lambda light chainsOrdered By: Brook Huddleston on 14-95-0542Nevcvoctvstrbl light chains.kappa.free/Immunoglobulin light chains.lambda.free (S) [Mass ratio]1.31 0.26-1.65[facility] – JacksonComment on above:Performed at: [facility] [id number] Director: Melchor Agrawal PhD, Phone: [phone] or plasma IgA measurement (mass/volume) Ordered By: Brook Huddleston on 17-09-9554MqT [Mass/Vol]221 mg/pO56-462SpfaamxjbToledo Hospitalerum or plasma IgG measurement (mass/volume)Ordered By: Brook Huddleston on 25-35-5368AyK [Mass/Vol]1146 mg/pF012-1947JghizmnzeToledo Hospitalerum or plasma IgM measurement (mass/volume)Ordered By: Brook Huddleston on 58-43-2410ZoY [Mass/Vol]53 mg/zD01-987IruhgxxigHolzer Medical Center – Jackson Comment on above:Performed at: [address] [id number] Director: Melchor Agrawal PhD, Phone: [phone] or plasma albumin measurement (mass/volume)Ordered By: Brook Huddleston on 50-16-0565Rpuroas [Mass/Vol]3.4 g/dLNormal2.9-4.4FChildren's Hospital for RehabilitationComment on above:Performed By: #### GLULS #### Point of Care testing ,Serum or plasma albumin/globulin mass ratioOrdered By: Brook Huddleston on 01-30-2025 Albumin/Globulin [Mass ratio]1.4 {ratio}NormalHolzer Medical Center – Jackson Comment on above:Performed By: #### GLULS #### Point of Care testing ,Albumin/Globulin [Mass ratio]1.1 {ratio}Normal0.7-1.7FChildren's Hospital for RehabilitationComment on above:Performed By: #### GLULS #### Point of Care testing ,Serum or plasma alpha 1 globulin measurement by electrophoresis (mass/volume) Ordered By: Brook Huddleston on 64-49-5751Pyevw 1 globulin Elph [Mass/Vol]0.3 g/dL 0.0-0.4FOhio State Harding Hospitalerum or plasma alpha 2 globulin measurement by electrophoresis (mass/volume)Ordered By: Brook Huddleston on 01-30-2025 Alpha 2 globulin Elph [Mass/Vol]0.8 g/dL0.4-1.0[facility] Serum or plasma anion gap determinationOrdered By: Brook Huddleston on 02-08-3791Tazcz gap [Moles/Vol]9.5 mmol/LNormal6.0-15.0[facility] – JacksonComment on above:Performed By: #### GLULS #### Point of Care testing ,Serum or plasma beta globulin measurement by electrophoresis (mass/volume) Ordered By: Brook Flaquito on 09-95-9596Mbam globulin Elph [Mass/Vol]0.9 g/dL0.7-1.3 [facility] Hospitalerum or plasma gamma globulin measurement by electrophoresis (mass/volume)Ordered By: Brook Gomezse on 54-26-6279Mhrtt globulin Elph [Mass/Vol]1.0 g/dL0.4-1.8T[facility]edo Hospitalerum or plasma immunoglobulin free lambda light chains measurement (mass/volume)Ordered By: Brook Flaquito on 19-85-9625Yhxwiccsyjjsxk light chains.lambda.free [Mass/Vol]33.1 mg/L High5.7-26.3FOhio State Harding Hospitalodium [Moles/volume] in Serum or PlasmaOrdered By: Brook Gomezse on 43-73-9616Eozska [Moles/Vol]136 mmol/LNormal 136-145[facility] – JacksonComment on above:Performed By: #### GLULS #### Point of Care testing ,Urea nitrogen [Mass/volume] in Serum or PlasmaOrdered By: Brook Huddleston on 34-01-4401Ohio nitrogen [Mass/Vol]23 mg/dLNormal7-25[facility] – JacksonComment on above:Performed By: #### GLULS #### Point of Care testing ,C Urineon 25-98-2474Drbzdkbe identified Cx Nom (U)Microbiology PROCEDURE: Urine Culture [R1] SOURCE: U Cath BODY SITE: COLLECTED DATE/TIME: 01/11/2025 12:05 EDT RECEIVED DATE/TIME: 01/11/2025 17:40 EDT START DATE/TIME: 01/11/2025 17:40 EDT FREE TEXT SOURCE: halle Reno PA-C, Pratima Reno PA-C, Pratima FINAL REPORTS Final Report [] Verified Date/Time: 01/14/2025 08:40 EDT 1,000 cfu/ml Enterococcus faecalis 15,000 cfu/ml Jessica albicans Presumptive SUSCEPTIBILITY RESULTS LEGEND: S=Susceptible, N/R=Not Reported, Blank=Data not available, [...] Locations R1: This test was performed at: [facility], [address] [place] [address], [id number], HheveyMhygvjEast Liverpool City HospitalComment on above:Performed By: #### [id number] #### [facility] [address] [place] [address]Biuilosmdp Visit Summaryon 90-42-7021Xfiucwjeox Visit Summary Ambulatory Visit Summary GENE PATSY G :1945 Visit Date:01/11/2025 Ambulatory Visit Instructions Your Diagnosis Recurrent UTI Noncompliant bladder Your Care Team Attending Physician - Shadia COOPER, Pratima Primary Care Physician - DON RICKS, HELEN This Is Your Medications List Non-Formulary Medication (D-mannose) Non-Formulary Medication (iron) aspirin (aspirin 81 mg Chew Tab) atorvastatin (atorvastatin 20 mg Tab) bifidobacterium-lactobacillus (Probiotic + Colostrum) cholecalciferol (Vitamin D3 2000 [...] Cystoscopic removal of ureteric stent (08/20/2012), Cystoscopic ure teroneocystostomy with insertion 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 What to do next Scheduled Follow-Up Appointments Thursday 12:30 PM EDT With: Pratima Reno PA-C Where: [facility] [address] [place] [address] [place] [address] 1:00 PM EDT With: Diego RICKS, Orquidea Taylor Where: [facility] [address], [address] [place] [address]- Medications What How Much When Instructions Unchanged aspirin (aspirin 81 mg Chew Tab) Chewed Every day Unchanged atorvastatin (atorvastatin 20 mg Tab) 1 Tablets By Mouth Every day Unchanged bifidobacterium-lactobacillus (Probiotic + Colostrum) By Mouth Every day [...] 2 times a day take 1 cap morningof cath change and 12hrs after Unchanged Non-Formulary [...] you for choosing us for your care. [facility] W Auto Differential panel (Bld)on 06-53-3874Bbuwwlckh (Bld) [#/Vol]0 10*3/uL0.0 - 0.2 10*3/uLNOMS HealthcareBasophils/100 WBC Manual cnt (Syn fld)0.3 %.NOM HealthcareEosinophils (Bld) [#/Vol]0.3 10*3/uL0.0 - 0.45 10*3/uLNOMS HealthcareEosinophils/100 WBC Manual cnt (Syn fld)4.2 %.[facility] HealthcareErythrocyte distribution width (RBC) [Ratio]15.7 %High12.0 - 14.8 %[facility]OMS HealthcareHematocrit (Bld) [Volume fraction] 29.5 %Low38.8 - 50.0 %[facility] HealthcareHemoglobin (Bld) [Mass/Vol]10.1 g/dLLow13.0 - 17.0 g/dLACADIA HEALTHCARE HealthcareInterpretation and review of laboratory results AbnormalACADIA HEALTHCARE HealthcareLymphocytes (Bld) [#/Vol]1.1 10*3/uL1.00 - 4.8 10*3/uL NOM HealthcareLymphocytes/100 WBC Manual cnt (Syn fld)15.6 %.[facility] HospitalMCH (RBC) [Entitic mass]35.7 vzSsnd71.5 - 35.2 pgSSM DePaul Health CenterHC (RBC) [Mass/Vol]34.2 g/dL32.5 - 35.6 g/dLCooper County Memorial HospitalMCV (RBC) [Entitic vol]104.4 eZCqcb79.5 - 101 fLACADIA HEALTHCARE HealthcareMonocytes (Bld) [#/Vol]0.6 10*3/uL0.0 - 0.8 10*3/uLNOMS HealthcareMonocytes+Macrophages/100 WBC Manual cnt (Syn fld)7.9 %. [facility] HealthcareNeutrophils (Bld) [#/Vol]5.2 10*3/uL1.8 - 7.7 10*3/uLNOMS HealthcareNeutrophils/100 WBC Manual cnt (Syn fld)72 %.[facility] HealthcareNRBC0.1 /100{WBC}0 - 0.5 /100{WBC}NOM HealthcarePlatelet mean volume (Bld) [Entitic vol]8.2 fL6.6 - 10.1 fLACADIA HEALTHCARE HealthcarePlatelets (Bld) [#/Vol]194 10*3/uL150 - 450 10*3/uLNOMS HealthcareRBC LM.HPF (Urine sed) [#/Area]2.82 10*6/uLLow3.90 - 5.60 10*6/uLNOMS HealthcareWBC (Bld) [#/Vol]7.2 10*3/uL4.1 - 10.5 10*3/uLNOMS HealthcareWBC LM.HPF (Urine sed) [#/Area]7.2 10*3/uL4.1 - 10.5 10*3/uLNOMS HealthcareNOMS HealthcareComplete Blood Count Auto Diffon 17-12-8335Zkziqifkq (Bld) [#/Vol]0.0 10*3/uLNormal0.0-0.2The [facility] Physician GroupComment on above:Result Comment: PERFORMED BY: [place] [address] PATHOLOGIST DOCK SUPERINTENDENT LUIS FELIPE MARSH M.D.Performed By: #### CMP, CBC #### [place] [address] USABasophils/100 WBC (Bld)0.3 %Normal.The [facility] Physician GroupComment on above:Performed By: #### CMP, CBC #### [place] [address] USAEosinophils (Bld) [#/Vol]0.3 10*3/uLNormal0.0-0.45The [facility] Physician GroupComment on above:Performed By: #### CMP, CBC #### [place] [address] USAEosinophils/100 WBC (Bld)4.2 %Normal.The [facility] Physician GroupComment on above:Performed By: #### CMP, CBC #### [place] [address] USAErythrocyte distribution width (RBC) [Ratio]15.7 %High 12.0-14.8The [facility] Physician GroupComment on above:Performed By: #### CMP, CBC #### [place] [address] USAHematocrit (Bld) [Volume fraction]29.5 %Low38.8-50.0The [facility] Physician GroupComment on above:Performed By: #### CMP, CBC #### [place] [address] USAHemoglobin (Bld) [Mass/Vol]10.1 g/dLLow13.0-17.0The [facility] Physician GroupComment on above:Performed By: #### CMP, CBC #### [place] [address] USALymphocytes (Bld) [#/Vol]1.1 10*3/uLNormal1.00-4.8The [facility] Physician GroupComment on above:Performed By: #### CMP, CBC #### [place] [address] USALymphocytes/100 WBC (Bld)15.6 %Normal.The [facility] Physician GroupComment on above:Performed By: #### CMP, CBC #### [place] [address] USAMCH (RBC) [Entitic mass]35.7 kyTcae36.5-35.2The [facility]atham Physician GroupComment on above:Performed By: #### CMP, CBC #### [place] [address] USAMCV (RBC) [Entitic vol]104.4 hMHnqb28.5-101The [facility] Physician GroupComment on above:Performed By: #### CMP, CBC #### [place] [address] USAMean Corpuscular HGB Conc34.2 g/iNQbwilz04.5-35.6The [facility] Physician GroupComment on above:Performed By: #### CMP, CBC #### [place] [address] USAMonocytes (Bld) [#/Vol]0.6 10*3/uLNormal0.0-0.8The [facility] Physician GroupComment on above:Performed By: #### CMP, CBC #### [facility] [address] [place] [address] USAMonocytes/100 WBC (Bld)7.9 %Normal.The [facility] Physician GroupComment on above:Performed By: #### CMP, CBC #### [facility] [address] [place] [address] USANeutrophils (Bld) [#/Vol]5.2 10*3/uLNormal1.8-7.7The [facility] Physician GroupComment on above:Performed By: #### CMP, CBC #### [facility] [address] [place] [address] USANeutrophils/100 WBC (Bld)72.0 %Normal.The [facility] Physician GroupComment on above:Performed By: #### CMP, CBC #### [place] [address] USANRBC%0.1 /100{WBC}Normal0-0.5The [facility] Comment on above:Performed By: #### CMP, CBC #### [facility] [address] [place] [address] USAPlatelet mean volume (Bld) [Entitic vol]8.2 fLNormal 6.6-10.1The [facility] Physician GroupComment on above:Performed By: #### CMP, CBC #### [address] [address] USAPlatelets (Bld) [#/Vol]194 10*3/fSBoijxt078-892Pzp [facility] Physician GroupComment on above:Performed By: #### CMP, CBC #### [place] [address] USARBC (Bld) [#/Vol]2.82 10*6/uLLow3.90-5.60The [facility] Physician GroupComment on above:Performed By: #### CMP, CBC #### [place] [address] USAWBC (Bld) [#/Vol]7.2 10*3/uLNormal4.1-10.5The [facility] Physician GroupComment on above:Performed By: #### CMP, CBC #### [facility] [address] [place] [address] USAUrology Office/Clinic Noteon 21-90-4949Gifoebr Office/Clinic NoteUrology Office/Clinic Note Chief Complaint SPT exchange HPI [...] since being on doxy. Shares he is unsureif he wants to resume Gentamicin bladder irrigations [...] await culture results prior to treatment w/ antibiotics.Explained to patient that antibiotic choices are limited [...] cath exchange Follow-up With When Contact Information Shadia COOPER, Pratima, URL Additional Instructions: RTC in 3 weeks [...] Cystoscopic removal of ureteric stent (08/20/2012), Cystoscopic ure teroneocystostomy with insertion of ureteral stent (08/05/2012), ESWL [...] 8 unit(s), SubCutaneous, N (more content not included)...[facility] City HospitalComment on above:Result Comment: Electronically Signed By: Shadia COOPER, Pratima\.br\Date and Time Signed: 01/11/25 12:22 EDTAlbumin [Mass/volume] in Serum or Plasma by Bromocresol green (BCG) dye binding metho Ordered By: Prcie Crain on 15-99-7262Hxtozmb BCG dye [Mass/Vol]Albumin [Mass/volume] in Serum or Plasma by Bromocresol green (BCG) dye binding metho 3.5-5.7FChildren's Hospital for RehabilitationAlbumin BCG dye [Mass/Vol]3.7 g/dL 3.5-5.7FChildren's Hospital for RehabilitationCalcium [Mass/volume] in Serum or Plasma Ordered By: rPice Crain on 99-60-5123Gqaubyq [Mass/Vol]Calcium [Mass/volume] in Serum or Plasma8.6-10.3FChildren's Hospital for RehabilitationCalcium [Mass/Vol]8.9 mg/dLNormal8.6-10.3FChildren's Hospital for RehabilitationComment on above:Performed By: #### RENAL, MG, PROCRERAT, CBCNO, URIC #### [facility] [address] [place] [address] USACarbon dioxide, total [Moles/volume] in Serum or Plasma Ordered By: Price Crain on 55-51-2641AZ0 [Moles/Vol]Carbon dioxide, total [Moles/volume] in Serum or Xjwvgc47.0-31.0[facility] – JacksonCO2 [Moles/Vol]23.8 mmol/UGdxyml47.0-31.0[facility] – JacksonComment on above:Performed By: #### RENAL, MG, PROCRERAT, CBCNO, URIC #### [facility] [address] [place] [id number] USAChloride [Moles/volume] in Serum or PlasmaOrdered By: Price Crain on 19-50-0869Kmoxfgqu [Moles/Vol]Chloride [Moles/volume] in Serum or SyokjtEkkz77-749UkeaslighHolzer Medical Center – JacksonChloride [Moles/Vol]109 mmol/L Dfzw74-039VxcwcbgyqHolzer Medical Center – JacksonComment on above:Performed By: #### RENAL, MG, PROCRERAT, CBCNO, URIC #### [facility] [address] [place] [id number] USACreatinine [Mass/volume] in Serum or PlasmaOrdered By: Price Crain on 91-96-5976Zlouhrthwl [Mass/Vol]Creatinine [Mass/volume] in Serum or PlasmaHigh0.70-1.30[facility] – JacksonCreatinine [Mass/Vol] 1.97 mg/dLHigh0.70-1.30[facility] – JacksonComment on above: Performed By: #### RENAL, MG, PROCRERAT, CBCNO, URIC #### [facility] [address] [place] [id number] USACreatinine [Mass/volume] in UrineOrdered By: Price Crain on 89-80-7648Rflicosmas (U) [Mass/Vol]Creatinine [Mass/volume] in UrineHolzer Medical Center – JacksonComment on above:No reference range established Creatinine (U) [Mass/Vol]82.00 mg/dLHolzer Medical Center – JacksonErythrocyte distribution width Auto (RBC) [Ratio]Ordered By: Price Crain on 12-28-2024 Erythrocyte distribution width (RBC) [Ratio]Erythrocyte distribution width [Ratio] by Automated qgtluFucz93.0-14.8[facility] Erythrocyte distribution width [Ratio] by Automated countOrdered By: Price Crain on 60-51-5227Hpbxabjztex distribution width (RBC) [Ratio]15.3 %High 12.0-14.8Hol[facility] Center – JacksonComment on above:Performed By: #### RENAL, MG, PROCRERAT, CBCNO, URIC #### [facility] [address] [place] [id number] USAErythrocytes [#/volume] in Blood by Automated countOrdered By: Price Crain on 34-89-2122KZA (Bld) [#/Vol]3.00 10*6/uLLow3.90-5.60 [facility] – JacksonComment on above:Performed By: #### RENAL, MG, PROCRERAT, CBCNO, URIC #### [facility] [address] [place] [id number] USAGlucose [Mass/volume] in Serum or PlasmaOrdered By: Price Crain on 85-57-3197Hmzjzbp [Mass/Vol]Glucose [Mass/volume] in Serum or Plasma [address] StreetComment on above:ADA recommended reference rangeRandom Glucose Reference Range is dependent on time and content of last meal. Glucose of more than 200 mg/dL in a nonstressed, ambulatory subject supports the diagnosisof Diabetes Mellitus.Glucose [Mass/Vol]203 mg/dL [address] StreetComment on above:Result Comment: Random Glucose Reference Range is dependent on time and content of last meal. Glucose of more than 200 mg/dL in a nonstressed, ambulatory subject supports the diagnosis of Diabetes Mellitus. ADA recommended reference rangePerformed By: #### RENAL, MG, PROCRERAT, CBCNO, URIC #### [facility] [address] [place] [id number] USAHematocrit Auto (Bld) [Volume fraction]Ordered By: Price Crain on 48-31-2473Zukcstsvmm (Bld) [Volume fraction]Hematocrit [Volume Fraction] of Blood by Automated kplxmDpd61.8-50.0[facility] Center – JacksonHematocrit [Volume Fraction] of Blood by Automated countOrdered By: Price Crain on 73-13-8266Tylmnkszdy (Bld) [Volume fraction]30.9 %Low38.8-50.0 [facility] – JacksonComment on above:Performed By: #### RENAL, MG, PROCRERAT, CBCNO, URIC #### [facility] [address] [place] [address] USAHemoglobin [Mass/volume] in BloodOrdered By: Price Crain on 59-58-9447Mjhobszobp (Bld) [Mass/Vol]Hemoglobin [Mass/volume] in BloodLow 13.0-17.0[facility] – JacksonHemoglobin (Bld) [Mass/Vol]10.5 g/dL Low13.0-17.0[facility] – JacksonComment on above:Performed By: #### RENAL, MG, PROCRERAT, CBCNO, URIC #### [facility] [address] [place] [address] USAHemogram CBC Without Diffon 83-39-9299Ypqi Corpuscular HGB Conc34.1 g/hMAtskdv56.5-35.6The [facility] Physician GroupComment on above: Performed By: #### RENAL, MG, PROCRERAT, CBCNO, URIC #### [facility] [address] [place] [address] USAWBC (Bld) [#/Vol]6.9 10*3/uLNormal4.1-10.5The [facility] Physician GroupComment on above:Performed By: #### RENAL, MG, PROCRERAT, CBCNO, URIC #### [facility] [address] [place] [address] USALeukocytes [#/volume] corrected for nucleated erythrocytes in Blood by Automated counOrdered By: Price Crain on 56-10-3966CYL corrected for nucl RBC Auto (Bld) [#/Vol]Leukocytes [#/volume] corrected for nucleated erythrocytes in Blood by Automated coun4.1-10.5FChildren's Hospital for Rehabilitation WBC corrected for nucl RBC Auto (Bld) [#/Vol]6.9 10*3/uL4.1-10.5FProvidence Hospital Auto (RBC) [Entitic mass]Ordered By: Price Crain on 57-75-9798XHR (RBC) [Entitic mass]MCH [Entitic mass] by Automated count27.5-35.2 [facility] [Entitic mass] by Automated countOrdered By: Price Crain on 72-17-4657SHI (RBC) [Entitic mass]35.2 fmMuvfzj57.5-35.2 [facility] – JacksonComment on above:Performed By: #### RENAL, MG, PROCRERAT, CBCNO, URIC #### [facility] [address] Auto (RBC) [Mass/Vol]Ordered By: Price Crain on 84-86-4173RPCD (RBC) [Mass/Vol]MCHC [Mass/volume] by Automated count32.5-35.6 [facility] (RBC) [Mass/Vol]34.1 g/dL32.5-35.6 [facility] Auto (RBC) [Entitic vol]Ordered By: Price Crain on 02-53-8114ZNY (RBC) [Entitic vol]MCV [Entitic volume] by Automated obxiaKgpz15.5-101[facility] Medical CenterV [Entitic volume] by Automated countOrdered By: Price Crain on 37-08-2342FBF (RBC) [Entitic vol] 103.1 yUVgvv31.5-101Hol[facility] Center – JacksonComment on above:Performed By: #### RENAL, MG, PROCRERAT, CBCNO, URIC #### [facility] [address] [place] [address] USAMagnesium [Mass/volume] in Serum or PlasmaOrdered By: Price Crain on 71-84-5520Xckhhnjuv [Mass/Vol]Magnesium [Mass/volume] in Serum or Plasma1.9-2.7FChildren's Hospital for RehabilitationMagnesium [Mass/Vol]2.0 mg/dL Normal1.9-2.7FChildren's Hospital for RehabilitationComment on above:Performed By: #### BMP #### [place] [address] USANo Panel InformationOrdered By: Price Crain on 12-28-2024 Estimated GFR (CKD-EPI)33.935 mL/MinHolzer Medical Center – JacksonPharmacy Creatinine Clearance (ChemN/[facility]33.935 mL/Min [facility] – JacksonN/[facility]ome[facility] Memorial HospitalPhosphate [Mass/volume] in Serum or PlasmaOrdered By: Price Crain on 36-27-7210Sttxwzbul [Mass/Vol]Phosphate [Mass/volume] in Serum or Plasma2.5-4.5FChildren's Hospital for RehabilitationPhosphate [Mass/Vol]3.0 mg/dLNormal2.5-4.5FChildren's Hospital for RehabilitationComment on above:Performed By: #### RENAL, MG, PROCRERAT, CBCNO, URIC #### [place] [id number] USAPlatelet mean volume Auto (Bld) [Entitic vol]Ordered By: Price Crain on 38-26-7552Dujwfluw mean volume (Bld) [Entitic vol]Platelet mean volume [Entitic volume] in Blood by Automated count6.6-10.1FChildren's Hospital for RehabilitationPlatelet mean volume [Entitic volume] in Blood by Automated count Ordered By: Price Crain on 30-32-2934Uxylzepb mean volume (Bld) [Entitic vol] 7.6 fLNormal6.6-10.1FChildren's Hospital for RehabilitationComment on above:Result Comment: PERFORMED BY: [place] [address] PATHOLOGIST DOCK SUPERINTENDENT DOMINIC FRANK M.D.Performed By: #### RENAL, MG, PROCRERAT, CBCNO, URIC #### [place] [address] USAPlatelets Auto (Bld) [#/Vol]Ordered By: Price Crain on 08-77-7865Rpnfqdacx (Bld) [#/Vol]Platelets [#/volume] in Blood by Automated -982BhunzvhwnHolzer Medical Center – JacksonPlatelets [#/volume] in Blood by Automated countOrdered By: Price Crain on 06-29-7227Fnoocfvak (Bld) [#/Vol]185 10*3/pNAtieun330-250VsxnmxnuiHolzer Medical Center – JacksonComment on above:Performed By: #### RENAL, MG, PROCRERAT, CBCNO, URIC #### [facility] [address] [place] [id number] USAPotassium [Moles/volume] in Serum or PlasmaOrdered By: Price Crain on 81-02-2528Idlaxtipi [Moles/Vol]Potassium [Moles/volume] in Serum or Plasma3.5-5.1FChildren's Hospital for RehabilitationPotassium [Moles/Vol]3.9 mmol/LNormal3.5-5.1FChildren's Hospital for RehabilitationComment on above:Performed By: #### RENAL, MG, PROCRERAT, CBCNO, URIC #### [place] [id number] USAProtein Creat Ratio Ur Randomon 19-88-2746Upxsereyzh, Urine (Random)82.00 mg/dLNormRegency Hospital Cleveland Easte [facility] Physician The [facility] Hospital Of MeridianComment on above: Result Comment: No reference range establishedPerformed By: #### RENAL, MG, PROCRERAT, CBCNO, URIC #### [place] [address] USAUrine Protein/Creatinine RatioNot performedNormal0-200[facility] Physician [facility] Hospital Of MeridianComment on above:Result Comment: PERFORMED BY: [place] [address] PATHOLOGIST DOCK SUPERINTENDENT DOMINIC FRANK M.D.Performed By: #### RENAL, MG, PROCRERAT, CBCNO, URIC #### [place] [address] USAProtein [Mass/volume] in UrineOrdered By: Price Crain on 01-34-4688Ynfqkgd (U) [Mass/Vol]Protein [Mass/volume] in UrineHigh0-9Hol[facility] Medical Center – JacksonProtein (U) [Mass/Vol]300 mg/dLWelch Community Hospital0-9[facility] – JacksonComment on above:Performed By: #### RENAL, MG, PROCRERAT, CBCNO, URIC #### [facility] [address] [place] [address] USARBC Auto (Bld) [#/Vol]Ordered By: Price Crain on 13-17-3005UGX (Bld) [#/Vol]Erythrocytes [#/volume] in Blood by Automated count Low3.90-5.60[facility] Center – JacksonRenal Function Panelon 12-28-2024 Albumin [Mass/Vol]3.7 g/dLNormal3.5-5.7ThSt. Luke's McCall Physician The [facility] Hospital Of MeridianComment on above:Performed By: #### RENAL, MG, PROCRERAT, CBCNO, URIC #### [facility] [address] [place] [address] USAEstimated GFR33.935 mL/MinNormalThe Delaware County Memorial HospitalComment on above:Performed By: #### RENAL, MG, PROCRERAT, CBCNO, URIC #### [facility] [address] [place] [address] USASerum or plasma anion gap determinationOrdered By: Price Crain on 36-37-0316Nzvzy gap [Moles/Vol]Serum or plasma anion gap determination6.0-15.0[facility] Center – JacksonAnion gap [Moles/Vol]10.1 mmol/LNormal6.0-15.0[facility] – JacksonComment on above:Performed By: #### RENAL, MG, PROCRERAT, CBCNO, URIC #### [facility] [address] [place] [id number] USASodium [Moles/volume] in Serum or PlasmaOrdered By: Price Crain on 54-59-8848Ainypc [Moles/Vol]Sodium [Moles/volume] in Serum or Plasma 136-145Toledo Hospitalodium [Moles/Vol]139 mmol/LNormal 136-145[facility] – JacksonComment on above:Performed By: #### RENAL, MG, PROCRERAT, CBCNO, URIC #### [facility] [address] [place] [address] USAUrate [Mass/volume] in Serum or PlasmaOrdered By: Price Crain on 29-67-6004Kqrkc [Mass/Vol]Urate [Mass/volume] in Serum or PlasmaLow 4.4-7.6FChildren's Hospital for RehabilitationUrate [Mass/Vol]3.5 mg/dLLow4.4-7.6 [facility] – JacksonComment on above:Result Comment: PERFORMED BY: [place] [address] PATHOLOGIST DOCK SUPERINTENDENT DOMINIC FRANK M.D.Performed By: #### BMP #### [facility] [address] [place] [address] USAUrea nitrogen [Mass/volume] in Serum or PlasmaOrdered By: Price Crain on 73-28-7226Vxdq nitrogen [Mass/Vol]Urea nitrogen [Mass/volume] in Serum or Plasma03-10[facility] Center – JacksonUrea nitrogen [Mass/Vol]22 mg/dLNormal03-10[facility] – JacksonComment on above:Performed By: #### RENAL, MG, PROCRERAT, CBCNO, URIC #### [facility] [address] [place], [place] [address] USAUrine protein/creatinine ratioOrdered By: Price Crain on 52-59-8684Ifupxtz/Creatinine (U) [Ratio]Urine protein/creatinine ratioHolzer Medical Center – JacksonComment on above:Test not performedProtein/Creatinine (U) [Ratio]TNParkview Health Montpelier HospitalC Urineon 12-19-7869Lpeiuoyz identified Cx Nom (U)Microbiology PROCEDURE: Urine Culture [R1] SOURCE: U Cath BODY SITE: COLLECTED DATE/TIME: 12/21/2024 11:51 EDT RECEIVED DATE/TIME: 12/21/2024 17:54 EDT START DATE/TIME: 12/21/2024 17:54 EDT FREE TEXT SOURCE: halle Reon PA-C, Pratima Reno PA-C, Pratima FINAL REPORTS Final Report [] Verified Date/Time: 12/23/2024 17:00 EDT 70,000 cfu/ml Staphylococcus aureus SUSCEPTIBILITY RESULTS LEGEND: S=Susceptible, N/R=Not Reported, Blank=Data not available, [...] Locations R1: This test was performed at: [facility], [address] [place] [address], [address] , , KnupdzLcekzf Titus Medical CenterComment on above:Performed By: #### [id number] #### [facility] [address] [address]Zmyibho Office/Clinic Noteon 85-85-1998Elkbgmn Office/Clinic NoteUrology Office/Clinic Note Chief Complaint SPT exchange HPI [...] room temperature). Instill: 30 once daily, cap SPT,drain after 2 hrs. Patient reports using Gentamicin irrigations every other day instead of daily due to medication causing irritation in bladder and penis. Today, he reports cloudy urine that began this past week, thinks he may have an infection. Noted tohave cloudy urine/sediment when cath exchanged today. He [...] cath exchange Follow-up With When Contact Information Shadia COOPER, Pratima, URL Additional Instructions: 3 weeks for SPT exchange [...] Cystoscopic removal of ureteric stent (08/20/2012), Cystoscopic ure teroneocystostomy with insertion of ureteral stent (08/05/2012), ESWL [...] Use:. Never Smokeless Tobacco (more content not included)...[facility] City HospitalComment on above:Result Comment: Electronically Signed By: Shadia COOPER, Pratima\.br\Date and Time Signed: 12/21/24 11:54 EDTBasic Metabolic Panelon 28-23-0154Txydizdmq GFR30.217 mL/MinTampa Shriners Hospital Physician GroupComment on above:Performed By: #### CMP, CBC #### [facility] [address] [place] [address] USABasophils Auto (Bld) [#/Vol]Ordered By: Brook Huddleston on 11-62-0398Gbsshwwmq (Bld) [#/Vol]Automated basophil count0.0-0.2FChildren's Hospital for RehabilitationBasophils/100 WBC Auto (Bld)Ordered By: Brook Huddleston on 39-13-3387Erbvofrcw/100 WBC (Bld)Automated basophil %.[facility] – JacksonCBC W Auto Differential panel (Bld)on 31-87-5411Eergdmpjn (Bld) [#/Vol]0 10*3/uL0.0 - 0.2 10*3/uLNOMS HealthcareBasophils/100 WBC Manual cnt (Syn fld)0.6 %.[facility] HospitalEosinophils (Bld) [#/Vol]0.3 10*3/uL0.0 - 0.45 10*3/uLNOUT HealthcareEosinophils/100 WBC Manual cnt (Syn fld)3.6 %.[facility] Erythrocyte distribution width (RBC) [Ratio]15.3 %High12.0 - 14.8 %[facility] HospitalHematocrit (Bld) [Volume fraction]31.2 %Low38.8 - 50.0 %[facility] HospitalHemoglobin (Bld) [Mass/Vol]10.9 g/dLLow13.0 - 17.0 g/dLCooper County Memorial Hospital Interpretation and review of laboratory resultsAbnormalCooper County Memorial Hospital Lymphocytes (Bld) [#/Vol]1 10*3/uL1.00 - 4.8 10*3/uLNOUT Healthcare Lymphocytes/100 WBC Manual cnt (Syn fld)13.1 %.[facility] CenterH (RBC) [Entitic mass]36.3 jwGnyv83.5 - 35.2 pgSSM DePaul Health CenterHC (RBC) [Mass/Vol]34.9 g/dL32.5 - 35.6 g/dLSSM DePaul Health CenterV (RBC) [Entitic vol]104 dPZysj03.5 - 101 fLCooper County Memorial HospitalMonocytes (Bld) [#/Vol]0.4 10*3/uL0.0 - 0.8 10*3/uLACADIA HEALTHCARE Healthcare Monocytes+Macrophages/100 WBC Manual cnt (Syn fld)5.6 %.[facility] Neutrophils (Bld) [#/Vol]5.8 10*3/uL1.8 - 7.7 10*3/uLNOUT Healthcare Neutrophils/100 WBC Manual cnt (Syn fld)77.1 %.[facility] HospitalNRBC0.1 /100{WBC}0 - 0.5 /100{WBC}[facility] HospitalPlatelet mean volume (Bld) [Entitic vol]7.7 fL6.6 - 10.1 fLCooper County Memorial HospitalPlatelets (Bld) [#/Vol]188 10*3/uL150 - 450 10*3/uLCooper County Memorial HospitalRBC LM.HPF (Urine sed) [#/Area]3 10*6/uLLow3.90 - 5.60 10*6/uLNOMS HealthcareWBC (Bld) [#/Vol]7.5 10*3/uL4.1 - 10.5 10*3/uLNOMS HealthcareWBC LM.HPF (Urine sed) [#/Area]7.5 10*3/uL4.1 - 10.5 10*3/uLNOMS HealthcareNOMS HealthcareCalcium [Mass/volume] in Serum or PlasmaOrdered By: Orquidea Issa on 30-00-5770Hyqwyyn [Mass/Vol]Calcium [Mass/volume] in Serum or Plasma8.6-10.3 [facility] – JacksonCalcium [Mass/Vol]9.3 mg/dLNormal8.6-10.3 [facility] – JacksonComment on above:Result Comment: PERFORMED BY: [place] [address] PATHOLOGIST DOCK SUPERINTENDENT DOMINIC FRANK M.D.Performed By: #### CMP, CBC #### [facility] [address] [place] [address] USACarbon dioxide, total [Moles/volume] in Serum or Plasma Ordered By: Orquidea Issa on 33-66-5865RV4 [Moles/Vol]Carbon dioxide, total [Moles/volume] in Serum or Khurcb45.0-31.0[facility] – JacksonCO2 [Moles/Vol]23.3 mmol/SVqpube53.0-31.0[facility] – JacksonComment on above:Performed By: #### CMP, CBC #### [facility] [address] [place] [address] USAChloride [Moles/volume] in Serum or PlasmaOrdered By: Orquidea Issa on 28-51-4172Sznorfck [Moles/Vol]Chloride [Moles/volume] in Serum or JrzycoTlyj22-490Ixultnrsa89 Banks StreetChloride [Moles/Vol]110 mmol/L Zuok59-708Oagtpviqc89 Banks StreetComment on above:Performed By: #### CMP, CBC #### [place] [facility] [address] [place] [address] USAComplete Blood Count Auto Diffon 13-71-5787Zfvxqguwb (Bld) [#/Vol]0.0 10*3/uLNormal0.0-0.2The [facility] Physician GroupComment on above: Result Comment: PERFORMED BY: [place] [address] PATHOLOGIST DOCK SUPERINTENDENT DOMINIC FRANK M.D.Performed By: #### GLULS #### Point of Care testing ,Basophils/100 WBC (Bld)0.6 %Normal.The [facility] Physician GroupComment on above:Performed By: #### GLULS #### Point of Care testing ,Eosinophils (Bld) [#/Vol]0.3 10*3/uLNormal0.0-0.45[facility] Comment on above:Performed By: #### GLULS #### Point of Care testing ,Eosinophils/100 WBC (Bld)3.6 %Normal.The [facility] Physician GroupComment on above:Performed By: #### GLULS #### Point of Care testing ,Erythrocyte distribution width (RBC) [Ratio]15.3 %High12.0-14.8The [facility] Physician GroupComment on above:Performed By: #### GLULS #### Point of Care testing ,Hematocrit (Bld) [Volume fraction]31.2 %Low38.8-50.0The [facility] Physician GroupComment on above:Performed By: #### GLULS #### Point of Care testing ,Hemoglobin (Bld) [Mass/Vol]10.9 g/dLLow13.0-17.0[facility] Comment on above:Performed By: #### GLULS #### Point of Care testing ,Lymphocytes (Bld) [#/Vol]1.0 10*3/uLNormal1.00-4.8[facility] Comment on above:Performed By: #### GLULS #### Point of Care testing ,Lymphocytes/100 WBC (Bld)13.1 %Normal.The [facility] Physician GroupComment on above:Performed By: #### GLULS #### Point of Care testing ,MCH (RBC) [Entitic mass]36.3 jeFizg42.5-35.2[facility] Comment on above:Performed By: #### GLULS #### Point of Care testing ,MCV (RBC) [Entitic vol]104.0 kBRzlq15.5-101The [facility] Physician GroupComment on above:Performed By: #### GLULS #### Point of Care testing ,Mean Corpuscular HGB Conc34.9 g/hXRtgmxe67.5-35.6The [facility] Comment on above:Performed By: #### GLULS #### Point of Care testing ,Monocytes (Bld) [#/Vol]0.4 10*3/uLNormal0.0-0.8[facility] Comment on above:Performed By: #### GLULS #### Point of Care testing ,Monocytes/100 WBC (Bld)5.6 %Normal.The [facility] Physician GroupComment on above:Performed By: #### GLULS #### Point of Care testing ,Neutrophils (Bld) [#/Vol]5.8 10*3/uLNormal1.8-7.7The [facility] Comment on above:Performed By: #### GLULS #### Point of Care testing ,Neutrophils/100 WBC (Bld)77.1 %Normal.The [facility] Physician GroupComment on above:Performed By: #### GLULS #### Point of Care testing ,NRBC%0.1 /100{WBC}Normal0-0.5The [facility] Physician GroupComment on above: Performed By: #### GLULS #### Point of Care testing ,Platelet mean volume (Bld) [Entitic vol]7.7 fLNormal6.6-10.1The [facility] Physician GroupComment on above:Performed By: #### GLULS #### Point of Care testing ,Platelets (Bld) [#/Vol]188 10*3/mEFjaqnd136-409Hhx [facility] Comment on above:Performed By: #### GLULS #### Point of Care testing ,RBC (Bld) [#/Vol]3.00 10*6/uLLow3.90-5.60The [facility] Physician GroupComment on above:Performed By: #### GLULS #### Point of Care testing ,WBC (Bld) [#/Vol]7.5 10*3/uLNormal4.1-10.5The [facility] Physician GroupComment on above:Performed By: #### GLULS #### Point of Care testing ,Creatinine [Mass/volume] in Serum or PlasmaOrdered By: Orquidea Issa on 12-14-2024 Creatinine [Mass/Vol]Creatinine [Mass/volume] in Serum or PlasmaHigh0.70-1.30 [facility] JacksonCreatinine [Mass/Vol]2.17 mg/dLHigh0.70-1.30 [facility] – JacksonComment on above:Performed By: #### CMP, CBC #### [facility] [address] [place] [address] USAEosinophils Auto (Bld) [#/Vol]Ordered By: Brook Huddleston on 87-45-5866Nqsjzxrygfs (Bld) [#/Vol]Automated eosinophil count0.0-0.45[facility] JacksonEosinophils/100 WBC Auto (Bld)Ordered By: Brook Huddleston on 20-81-4086Kffhqisykrl/100 WBC (Bld)Automated eosinophil %.[facility] – JacksonErythrocyte distribution width Auto (RBC) [Ratio]Ordered By: Brook Huddleston on 17-77-6008Nokrolummmu distribution width (RBC) [Ratio]Erythrocyte distribution width [Ratio] by Automated qcmpsKufe46.0-14.8[facility] – JacksonGlucose [Mass/volume] in Serum or PlasmaOrdered By: Orquidea Issa on 30-16-0827Hnfiirw [Mass/Vol]Glucose [Mass/volume] in Serum or BdigmmOruz40-880 [facility] – JacksonComment on above:ADA recommended reference rangeRandom Glucose Reference Range is dependent on time and content of last meal. Glucose of more than 200 mg/dL in a nonstressed, ambulatory subject supports the diagnosisof Diabetes Mellitus.Glucose [Mass/Vol]106 mg/sGCnoe74-820 [facility] – JacksonComment on above:Result Comment: Random Glucose Reference Range is dependent on time and content of last meal. Glucose of more than 200 mg/dL in a nonstressed, ambulatory subject supports the diagnosis of Diabetes Mellitus. ADA recommended reference rangePerformed By: #### CMP, CBC #### [facility] [address] [place] [address] USAHematocrit Auto (Bld) [Volume fraction]Ordered By: Brook Huddleston on 27-31-1847Fytdlervdh (Bld) [Volume fraction]Hematocrit [Volume Fraction] of Blood by Automated uoozbXqq55.8-50.0[facility] – JacksonHemoglobin [Mass/volume] in BloodOrdered By: Brook Huddleston on 12-14-2024 Hemoglobin (Bld) [Mass/Vol]Hemoglobin [Mass/volume] in NfigqPhv23.0-17.0 [facility] JacksonLeukocytes [#/volume] corrected for nucleated erythrocytes in Blood by Automated counOrdered By: Brook Huddleston on 33-16-8252ZFQ corrected for nucl RBC Auto (Bld) [#/Vol]Leukocytes [#/volume] corrected for nucleated erythrocytes in Blood by Automated coun4.1-10.5FChildren's Hospital for RehabilitationLymphocytes Auto (Bld) [#/Vol]Ordered By: Brook Huddleston on 12-14-2024 Lymphocytes (Bld) [#/Vol]Lymphocytes [#/volume] in Blood by Automated count 1.00-4.8[facility] JacksonLymphocytes/100 WBC Auto (Bld)Ordered By: Brook Huddleston on 80-41-8078Fqkuckbpuzu/100 WBC (Bld)Lymphocytes/100 leukocytes in Blood by Automated count.[facility] – JacksonMCH Auto (RBC) [Entitic mass]Ordered By: Brook Huddleston on 22-27-4047NKG (RBC) [Entitic mass]MCH [Entitic mass] by Automated znapvOmyx95.5-35.2FChildren's Hospital for Rehabilitation MCHC Auto (RBC) [Mass/Vol]Ordered By: Brook Huddleston on 16-86-7286AGFZ (RBC) [Mass/Vol]MCHC [Mass/volume] by Automated count32.5-35.6FChildren's Hospital for RehabilitationMCV Auto (RBC) [Entitic vol]Ordered By: Brook Huddleston on 35-06-7297MZF (RBC) [Entitic vol]MCV [Entitic volume] by Automated miscsBnwe00.5-101[facility] JacksonMonocytes Auto (Bld) [#/Vol]Ordered By: Brook Huddleston on 59-53-1569Clinhrsfg (Bld) [#/Vol]Automated blood monocyte count0.0-0.8[facility] JacksonMonocytes/100 WBC Auto (Bld)Ordered By: Brook Huddleston on 56-42-9397Covnpowuo/100 WBC (Bld)Automated monocyte %.[facility] JacksonNeutrophils Auto (Bld) [#/Vol]Ordered By: Brook Huddleston on 12-14-2024 Neutrophils (Bld) [#/Vol]Neutrophils [#/volume] in Blood by Automated count 1.8-7.7FChildren's Hospital for RehabilitationNeutrophils/100 WBC Auto (Bld)Ordered By: Brook Huddleston on 78-41-7156Qafhdamlidx/100 WBC (Bld)Automated neutrophil %. [facility] JacksonNo Panel InformationOrdered By: Orquidea Issa on 21-62-8982Rhhcefcry GFR (CKD-EPI)30.217 mL/[facility] Creatinine Clearance (ChemN/[facility]30.217 mL/[facility] EastN/[facility] Nucleated erythrocytes [Presence] in Blood by Automated countOrdered By: Brook Huddleston on 08-71-7732Wcwytiwzo RBC Auto Ql (Bld)Nucleated erythrocytes [Presence] in Blood by Automated count0-0.5FChildren's Hospital for RehabilitationPlatelet mean volume Auto (Bld) [Entitic vol]Ordered By: Brook Huddleston on 40-17-0213Hzqwvsmv mean volume (Bld) [Entitic vol]Platelet mean volume [Entitic volume] in Blood by Automated count6.6-10.1FChildren's Hospital for RehabilitationPlatelets Auto (Bld) [#/Vol]Ordered By: Brook Huddleston on 41-38-7803Yeehffcim (Bld) [#/Vol]Platelets [#/volume] in Blood by Automated zbqim303-595ScageuutsHolzer Medical Center – Jackson Potassium [Moles/volume] in Serum or PlasmaOrdered By: Orquidea Issa on 12-14-2024 Potassium [Moles/Vol]Potassium [Moles/volume] in Serum or Plasma3.5-5.1FChildren's Hospital for RehabilitationPotassium [Moles/Vol]4.2 mmol/LNormal3.5-5.1FChildren's Hospital for RehabilitationComment on above:Performed By: #### CMP, CBC #### [facility] [address] [place] [id number] USARBC Auto (Bld) [#/Vol]Ordered By: Brook Huddleston on 12-14-2024 RBC (Bld) [#/Vol]Erythrocytes [#/volume] in Blood by Automated countLow3.90-5.60 [facility] Hospitalerum or plasma anion gap determinationOrdered By: Orquidea Issa on 74-98-4673Ggrhn gap [Moles/Vol]Serum or plasma anion gap determination6.0-15.0[facility] – JacksonAnion gap [Moles/Vol]10.9 mmol/LNormal6.0-15.0[facility] – JacksonComment on above:Performed By: #### CMP, CBC #### [facility] [address] [place] [id number] USASodium [Moles/volume] in Serum or PlasmaOrdered By: Orquidea Issa on 04-15-2194Tnihsq [Moles/Vol]Sodium [Moles/volume] in Serum or Plasma 136-145Toledo Hospitalodium [Moles/Vol]140 mmol/LNormal 136-145[facility] – JacksonComment on above:Performed By: #### CMP, CBC #### [facility] [address] [place] [id number] USAUrea nitrogen [Mass/volume] in Serum or PlasmaOrdered By: Orquidea Issa on 70-68-0484Plqw nitrogen [Mass/Vol]Urea nitrogen [Mass/volume] in Serum or PlasmaHigh7-[facility] – JacksonUrea nitrogen [Mass/Vol] 30 mg/dLHigh725[facility] – JacksonComment on above:Performed By: #### CMP, CBC #### [facility] [address] [place] [address] USAWBC Auto (Bld) [#/Vol]Ordered By: Brook Huddleston on 12-14-2024 WBC (Bld) [#/Vol]Leukocytes [#/volume] in Blood by Automated count4.1-10.5 [facility] JacksonAmbulatory Visit Summaryon 42-18-0530Orzvedolpo Visit SummaryAmbulatory Visit Summary PATSY MILLS :1945 Visit Date:11/17/2024 Ambulatory Visit Instructions Your Diagnosis Prostate cancer Noncompliant bladder Hydroureteronephrosis Ureteral stricture Incomplete bladder emptying Recurrent UTI Kidney stones BPH with urinary obstruction Family history of prostate cancer in father Your Care Team Attending Physician - Diego RICKS, Orquidea Taylor Primary Care Physician - HELEN OCHOA MD This Is Your Medications List methenamine (methenamine hippurate 1 g oral tablet) nitrofurantoin (Macrobid 100 mg Cap) Contact prescribing physician if questions or concerns Non-Formulary Medication (D-mannose) Non-Formulary Medication (iron) aspirin (aspirin 81 mg Chew Tab) atorvastatin (atorvastatin 20 mg Tab) bifidobacterium-lactobacillus (Probiotic + Colostrum) cholecalciferol (Vitamin D3 2000 [...] Cystoscopic removal of ureteric stent (08/20/2012), Cystoscopic ure teroneocystostomy with insertion 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 Discharge Vitals Height 178 cm Height 70 in Weight 89.1 kg Weight 196.432 lb BMI 28.12 What to do next Scheduled Follow-Up Appointments Thursday 12:30 PM EDT With: Pratima Reno PA-C Where: [facility] [address] [place] [address]- You Need to Schedule the Following Appointments Follow Up with Diego RICKS, Orquidea Taylor, OUSMANE, URO When: Where: Medications What How Much When Why Instructions Unchanged methenamine (methenamine hippurate 1 g oral tablet) 1 Tablets By Mouth 2 times a day Recurrent UTI Unchanged nitrofurantoin (Macrobid 100 mg Cap) 1 Capsules By Mouth 2 times a day take 1 cap morningof cath change and 12hrs after Unchanged aspirin (aspirin 81 mg Chew Tab) Chewed Every day Contact prescribing physician if questions or concerns Unchanged atorvastatin (atorvastatin 20 mg Tab) 1 Tablets By Mouth Every day Contact prescribing physician if questions or concerns Unchanged bifidobacterium-lactobacillus (Probiotic + Colostrum) By Mouth Every day [...] By Mouth Contact prescribing physician if questions orconcerns Unchanged famotidine (famotidine 20 mg Tab) 1 [...] Hydroureteronephrosis Incomplete bladder emp (more content not included)...[facility] HospitalU[facility] Office/Clinic Noteon 37-02-9306Gnubbnq Office/Clinic NoteUrology Office/Clinic Note Chief Complaint F/U HPI Staff 79 yr old male here for f/u after Cysto/bilateral RG pyelogram/bilateral ureteral stent exchange/SPtube exchange on 11/09/14 Previous dx: prostate cancer (active surveillance), noncompliant bladder, OAB, hydroureteronephrosis, ureteral stricture, incomplete bladder emptying, recurrent UTI, kidney stones, BPH with urinary obstruction, fam hx of prostate cancer in father. History of Present Illness Tests reviewed: reviewed external BMP, UCx. I have reviewed the previous health record information and history for this patient from Dr. Issa I have reviewed and verified the staff [...] recommendations of SP tube, stent, definitive care whichis more invasive (cystectomy). Hx of multiple myeloma [...] adenocarcinoma. Selene 7 (3+4), GG2. Only 6-10% ofGleason 4 present. 7 of 78 prostate chips involved. No adverse pathology. Decipher testing 08/27/22 - High genomic risk. Not ideal surgical candidate (prostatectomy) due to age, comorbidities. MRI prostate 11/11/22 [facility] [place] Prostate volume 14 cc. Post intervention changes w/o definitive MRI evidence of prostate malignancy. Lesion seen involving the R ischial tuberosity measuring 1 cm. A bonymetastatic lesion cannot be excluded (recent bone survey [...] and cons. Explained requirements to be a candidatefor SNM, unlikely to help at this point. [...] #2, 4 4. Uret (more content not included)...[facility] HospitalComment on above:Result Comment: Electronically Signed By: Diego RICKS, Orquidea Taylor\.br\Date and Time Signed: 11/17/24 11:21EDT\.br\Electronically Co-Signed By: Aleah Starr.angel\Date and Time Co-Signed: 11/17/24 11:05 EDTA1C with Estimated Average Gluon 64-62-7885Jggcuqn [Mass/Vol]203 mg/dLTampa Shriners Hospital Physician GroupComment on above:Result Comment: PERFORMED BY: [place] [address] PATHOLOGIST DOCK SUPERINTENDENT DOMINIC FRANK M.D.Performed By: #### CMP, CBC #### [place] [address] USAAlanine aminotransferase [Enzymatic activity/volume] in Serum or PlasmaOrdered By: Helen Ochoa on 45-13-9938ZNT [Catalytic activity/Vol]Alanine aminotransferase [Enzymatic activity/volume] in Serum or Plasma[address] [place], [place] [address]ALT [Catalytic activity/Vol]25 U/L [address] King StreetComment on above:Performed By: #### CMP, CBC #### [place] [address] USAAlbumin [Mass/volume] in Serum or Plasma by Bromocresol green (BCG) dye binding methoOrdered By: Helen Ohcoa on 25-33-3209Dweuqvc BCG dye [Mass/Vol]Albumin [Mass/volume] in Serum or Plasma by Bromocresol green (BCG) dye binding metho3.5-5.7FChildren's Hospital for RehabilitationAlbumin BCG dye [Mass/Vol]3.7 g/dL3.5-5.7FChildren's Hospital for RehabilitationAlkaline phosphatase [Enzymatic activity/volume] in Serum or PlasmaOrdered By: Helen Ochoa on 52-84-3461DNY [Catalytic activity/Vol]Alkaline phosphatase [Enzymatic activity/volume] in Serum or McexrzEuzl38-414Jldiule[address] ALP [Catalytic activity/Vol]129 U/MEajn27-999Wtufcqbqd[address] Comment on above:Performed By: #### CMP, CBC #### [place] [id number] USAAspartate aminotransferase [Enzymatic activity/volume] in Serum or PlasmaOrdered By: Helen Ochoa on 72-98-8686WCR [Catalytic activity/Vol]Aspartate aminotransferase [Enzymatic activity/volume] in Serum or Xrvsnx59-27TzyibkihtHolzer Medical Center – JacksonAST [Catalytic activity/Vol]14 U/L Nysplc68-67PenlwcfxfHolzer Medical Center – JacksonComment on above:Performed By: #### CMP, CBC #### [facility] [address] [place] [address] USABasophils Auto (Bld) [#/Vol]Ordered By: Brook Huddleston on 67-12-9302Eonwuoxhi (Bld) [#/Vol]Automated basophil count0.0-0.2FChildren's Hospital for RehabilitationBasophils/100 WBC Auto (Bld)Ordered By: Brook Huddleston on 38-45-3933Ccvurladm/100 WBC (Bld)Automated basophil %.[facility] – JacksonBilirubin.total [Mass/volume] in Serum or PlasmaOrdered By: Helen Ochoa on 70-40-4486Kmsqkeiln [Mass/Vol]Bilirubin.total [Mass/volume] in Serum or Plasma0.3-1.0[facility] – JacksonBilirubin [Mass/Vol]0.4 mg/dL Normal0.3-1.0[facility] – JacksonComment on above:Performed By: #### CMP, CBC #### [facility] [address] [place] [id number] USABlood estimated average glucose determination by estimation from glycated hemoglobinOrdered By: Helen Ochoa on 11-11-2024 Average glucose Estimated from glycated hemoglobin (Bld) [Mass/Vol]Glucose mean value [Mass/volume] in Blood Estimated from glycated hemoglobinHolzer Medical Center – JacksonAverage glucose Estimated from glycated hemoglobin (Bld) [Mass/Vol]203 mg/dLHolzer Medical Center – JacksonC Urineon 50-88-7859Oxvwbpoc identified Cx Nom (U)Microbiology PROCEDURE: Urine Culture [R1] SOURCE: U Cath BODY SITE: COLLECTED DATE/TIME: 11/07/2024 16:45 EDT RECEIVED DATE/TIME: 11/08/2024 17:55 EDT START DATE/TIME: 11/08/2024 17:55 EDT FREE TEXT SOURCE: Nati MEJIA ANTONIO-C, Nati MEJIA, ANTONIO-C, Makayla X Makayla X FINAL REPORTS Final Report [] Verified Date/Time: 11/11/2024 07:08 EDT 20,000 cfu/ml Jessica albicans Presumptive Performing Locations R1: This test was performed at: [facility], [address] [place] [address], [id number] , [place], TkzubyFswlzaUniversity Hospitals Geauga Medical CenterComment on above:Performed By: #### [id number] #### [facility] [address] [place] [address]UMM W Auto Differential panel (Bld)on 67-60-6165Tdjzknvyv (Bld) [#/Vol]0 10*3/uL0.0 - 0.2 10*3/uLNOMS HealthcareBasophils/100 WBC Manual cnt (Syn fld)0.4 %.NOMS HealthcareEosinophils (Bld) [#/Vol]0.3 10*3/uL0.0 - 0.45 10*3/uLNOMS HealthcareEosinophils/100 WBC Manual cnt (Syn fld)3.2 %.[facility] HospitalErythrocyte distribution width (RBC) [Ratio]15.9 %High12.0 - 14.8 % NOM HealthcareHematocrit (Bld) [Volume fraction]31.6 %Low38.8 - 50.0 %[facility] HospitalHemoglobin (Bld) [Mass/Vol]10.7 g/dLLow13.0 - 17.0 g/dLCooper County Memorial Hospital Interpretation and review of laboratory resultsAbnormGuthrie [facility] Lymphocytes (Bld) [#/Vol]1.7 10*3/uL1.00 - 4.8 10*3/uLNOMS Healthcare Lymphocytes/100 WBC Manual cnt (Syn fld)16.5 %.[facility] Memorial HospitalMCH (RBC) [Entitic mass]35.2 pg27.5 - 35.2 pgNOThe Rehabilitation InstituteMCHC (RBC) [Mass/Vol]33.8 g/dL32.5 - 35.6 g/dLCooper County Memorial HospitalMCV (RBC) [Entitic vol]104 lWCzwa20.5 - 101 fLNOMS HealthcareMonocytes (Bld) [#/Vol]0.5 10*3/uL0.0 - 0.8 10*3/uLNOMS Healthcare Monocytes+Macrophages/100 WBC Manual cnt (Syn fld)5.3 %.[facility] Neutrophils (Bld) [#/Vol]7.7 10*3/uL1.8 - 7.7 10*3/uLNOMS Healthcare Neutrophils/100 WBC Manual cnt (Syn fld)74.6 %.NOMS HealthcareNRBC0 /100{WBC}0 - 0.5 /100{WBC}NOMS HealthcarePlatelet mean volume (Bld) [Entitic vol]7.8 fL6.6 - 10.1 fLNOMS HealthcarePlatelets (Bld) [#/Vol]262 10*3/uL150 - 450 10*3/uLNOMS HealthcareRBC LM.HPF (Urine sed) [#/Area]3.04 10*6/uLLow3.90 - 5.60 10*6/uLNOMS HealthcareWBC (Bld) [#/Vol]10.3 10*3/uL4.1 - 10.5 10*3/uLNOMS HealthcareWBC LM.HPF (Urine sed) [#/Area]10.3 10*3/uL4.1 - 10.5 10*3/uLNOMS HealthcareNOMS HealthcareCalcium [Mass/volume] in Serum or PlasmaOrdered By: Helen Ochoa on 64-04-1481Cbsnmnv [Mass/Vol]Calcium [Mass/volume] in Serum or PlasmaLow8.6-10.3 [facility] – JacksonCalcium [Mass/Vol]8.5 mg/dLLow8.6-10.3FChildren's Hospital for RehabilitationComment on above:Performed By: #### CMP, CBC #### [facility] [address] [place] [address] USACarbon dioxide, total [Moles/volume] in Serum or Plasma Ordered By: Helen Ochoa on 63-18-8514NS1 [Moles/Vol]Carbon dioxide, total [Moles/volume] in Serum or WiwrwaGju16.0-31.0[facility] CO2 [Moles/Vol]20.6 mmol/LLow21.0-31.0[facility] – JacksonComment on above:Performed By: #### CMP, CBC #### [facility] [address] [place] [address] USAChloride [Moles/volume] in Serum or PlasmaOrdered By: Helen Ochoa on 44-23-3270Bzzncqnd [Moles/Vol]Chloride [Moles/volume] in Serum or QcarnkJorc78-625IlfxzjmpyHolzer Medical Center – JacksonChloride [Moles/Vol]112 mmol/EAsim78-169Qnyuwytrz89 Banks StreetComment on above:Performed By: #### CMP, CBC #### [facility] [address] [place] [address] USACholesterol [Mass/volume] in Serum or PlasmaOrdered By: Helen Ochoa on 21-17-0996Hrbhdbgqhai [Mass/Vol]Cholesterol [Mass/volume] in Serum or KpqcdaTyc273-787DyeenfspmHolzer Medical Center – JacksonComment on above:Chol less than 200 mg/dl low riskChol 201-239 mg/dl borderline riskChol 240 mg/dl and greater high riskCholesterol [Mass/Vol]108 mg/uAQbg431-988Fjhzrhtoa[address] [place], [place] [address]Comment on above:Result Comment: Chol less than 200 mg/dl low risk Chol 201-239 mg/dl borderline risk Chol 240 mg/dl and greater high riskPerformed By: #### CMP, CBC #### [facility] [address] [place] [address] USACholesterol in HDL [Mass/volume] in Serum or PlasmaOrdered By: Helen Ochoa on 79-94-2020Whxlswhfzpb in HDL [Mass/Vol]Serum or plasma high density lipoprotein (HDL) cholesterol scyiwyparde15-61Pai[address] [place], [place] [address]Comment on above:HDL CHOL ATP-III CLASSIFICATION Cardiovascular RiskHDL > or equal to 60 mg/dL LOWHDL < 40 mg/dL HIGHCholesterol in HDL [Mass/Vol]33 mg/hWGrbhpn71-06Ruhtsbjpw[address] [place], [place] [address]Comment on above: Result Comment: HDL CHOL ATP-III CLASSIFICATION Cardiovascular Risk HDL > or equal to 60 mg/dL LOW HDL < 40 mg/dL HIGHPerformed By: #### CMP, CBC #### [facility] [address] [place] [address] USACholesterol in LDL Calc [Mass/Vol]Ordered By: Helen Ochoa on 19-62-5734Cxrznbcpafx in LDL [Mass/Vol]Cholesterol in LDL [Mass/volume] in Serum or Plasma by calculation0[facility] – JacksonComment on above:LDL ATP III CLASSIFICATIONLDL less than 100 mg/dL OptimalLDL 100-129 mg/dL Near or above rwvfhemPIX328-069 mg/dL Borderline highLDL 160-189 mg/dL HighLDL greater than 189 mg/dL Very highCholesterol in LDL [Mass/Vol]59 mg/dL0-100[facility] – JacksonCholesterol in VLDL Calc [Mass/Vol]Ordered By: Helen Ochoa on 01-75-0125Qonpxtfcycv in VLDL [Mass/Vol]Cholesterol in VLDL [Mass/volume] in Serum or Plasma by calculation [facility] – JacksonCholesterol in VLDL [Mass/Vol]15 mg/dLHolzer Medical Center – JacksonComplete Blood Count Auto Diffon 89-14-8698Mgzkhnvvb (Bld) [#/Vol]0.0 10*3/uLNormal0.0-0.2The [facility] Physician GroupComment on above:Result Comment: PERFORMED BY: [place] [id number] PATHOLOGIST DOCK SUPERINTENDENT DOMINIC FRANK M.D.Performed By: #### GLULS #### Point of Care testing ,Basophils/100 WBC (Bld)0.4 %Normal.The [facility] Physician GroupComment on above:Performed By: #### GLULS #### Point of Care testing ,Eosinophils (Bld) [#/Vol]0.3 10*3/uLNormal0.0-0.45The [facility] Comment on above:Performed By: #### GLULS #### Point of Care testing ,Eosinophils/100 WBC (Bld)3.2 %Normal.The [facility] Physician GroupComment on above:Performed By: #### GLULS #### Point of Care testing ,Erythrocyte distribution width (RBC) [Ratio]15.9 %High12.0-14.8The [facility] Physician GroupComment on above:Performed By: #### GLULS #### Point of Care testing ,Hematocrit (Bld) [Volume fraction]31.6 %Low38.8-50.0The [facility] Physician GroupComment on above:Performed By: #### GLULS #### Point of Care testing ,Hemoglobin (Bld) [Mass/Vol]10.7 g/dLLow13.0-17.0[facility] Comment on above:Performed By: #### GLULS #### Point of Care testing ,Lymphocytes (Bld) [#/Vol]1.7 10*3/uLNormal1.00-4.8[facility] Comment on above:Performed By: #### GLULS #### Point of Care testing ,Lymphocytes/100 WBC (Bld)16.5 %Normal.[facility] Physician GroupComment on above:Performed By: #### GLULS #### Point of Care testing ,MCH (RBC) [Entitic mass]35.2 pmLshqnh42.5-35.2[facility] Comment on above:Performed By: #### GLULS #### Point of Care testing ,MCV (RBC) [Entitic vol]104.0 hYLgsp23.5-101The [facility] Physician GroupComment on above:Performed By: #### GLULS #### Point of Care testing ,Mean Corpuscular HGB Conc33.8 g/vZHbhowf88.5-35.6[facility] Comment on above:Performed By: #### GLULS #### Point of Care testing ,Monocytes (Bld) [#/Vol]0.5 10*3/uLNormal0.0-0.8[facility] Comment on above:Performed By: #### GLULS #### Point of Care testing ,Monocytes/100 WBC (Bld)5.3 %Normal.The [facility] GroupComment on above:Performed By: #### GLULS #### Point of Care testing ,Neutrophils (Bld) [#/Vol]7.7 10*3/uLNormal1.8-7.7[facility] Comment on above:Performed By: #### GLULS #### Point of Care testing ,Neutrophils/100 WBC (Bld)74.6 %Normal.The [facility] Physician GroupComment on above:Performed By: #### GLULS #### Point of Care testing ,NRBC%0.0 /100{WBC}Normal0-0.5The [facility] Physician GroupComment on above: Performed By: #### GLULS #### Point of Care testing ,Platelet mean volume (Bld) [Entitic vol]7.8 fLNormal6.6-10.1The [facility] Physician GroupComment on above:Performed By: #### GLULS #### Point of Care testing ,Platelets (Bld) [#/Vol]262 10*3/dQUhffdd003-060Elj [facility] Comment on above:Performed By: #### GLULS #### Point of Care testing ,RBC (Bld) [#/Vol]3.04 10*6/uLLow3.90-5.60The [facility] Physician GroupComment on above:Performed By: #### GLULS #### Point of Care testing ,WBC (Bld) [#/Vol]10.3 10*3/uLNormal4.1-10.5The [facility] Physician GroupComment on above:Performed By: #### GLULS #### Point of Care testing ,Comprehensive Metabolic Panelon 71-86-8502Mujjpna [Mass/Vol]3.7 g/dLNormal 3.5-5.7The [facility] Physician GroupComment on above:Performed By: #### CMP, CBC #### [facility] [address] [place] [address] USAEstimated GFR16.571 mL/MinNormalThe [facility] Physician GroupComment on above:Performed By: #### CMP, CBC #### [facility] [address] [place] [id number] USACreatinine [Mass/volume] in Serum or PlasmaOrdered By: Helen Ochoa on 20-60-4495Uzbyiamlog [Mass/Vol]Creatinine [Mass/volume] in Serum or PlasmaHigh0.70-1.30[facility] JacksonCreatinine [Mass/Vol]3.58 mg/dLHigh0.70-1.30[facility] – JacksonComment on above:Performed By: #### CMP, CBC #### [facility] [address] [place] [address] USAEosinophils Auto (Bld) [#/Vol]Ordered By: Brook Huddleston on 79-75-2302Bkalzvsqbzb (Bld) [#/Vol]Automated eosinophil count0.0-0.45[facility] – JacksonEosinophils/100 WBC Auto (Bld)Ordered By: Brook Huddleston on 30-14-3669Hwgjnbyazzg/100 WBC (Bld)Automated eosinophil %.[facility] – JacksonErythrocyte distribution width Auto (RBC) [Ratio]Ordered By: Brook Huddleston on 84-35-0432Wirampodldd distribution width (RBC) [Ratio]Erythrocyte distribution width [Ratio] by Automated evdyfVntj94.0-14.8[facility] – JacksonGlobulin Calc (S) [Mass/Vol]Ordered By: Helen Ochoa on 08-83-9047Gecqoesf (S) [Mass/Vol]Serum globulin measurement by calculation (mass/volume)[facility] – JacksonGlucose [Mass/volume] in Serum or PlasmaOrdered By: Helen Ochoa on 46-97-7799Moanbhz [Mass/Vol]Glucose [Mass/volume] in Serum or Yyhoqc15-686BxnhqdwdsHolzer Medical Center – JacksonComment on above:ADA recommended reference rangeRandom Glucose Reference Range is dependent on time and content of last meal. Glucose of more than 200 mg/dL in a nonstressed, ambulatory subject supports the diagnosisof Diabetes Mellitus. Glucose [Mass/Vol]73 mg/yXXjband16-299MzaugirvkHolzer Medical Center – JacksonComment on above:Result Comment: Random Glucose Reference Range is dependent on time and content of last meal. Glucose of more than 200 mg/dL in a nonstressed, ambulatory subject supports the diagnosis of Diabetes Mellitus. ADA recommended reference rangePerformed By: #### CMP, CBC #### [facility] [address] [place] [id number] USAHematocrit Auto (Bld) [Volume fraction]Ordered By: Brook Huddleston on 77-17-3112Xemcnykpkv (Bld) [Volume fraction]Hematocrit [Volume Fraction] of Blood by Automated eeriuKmr67.8-50.0[facility] – JacksonHemoglobin A1c/Hemoglobin.total in BloodOrdered By: Helen Ochoa on 56-23-1123GiB4z (Bld) [Mass fraction]Hemoglobin A1c percentageHigh4.3-5.6 [facility] – JacksonComment on above:Increased risk for diabetes: 5.7 - 6.4diabetes: >6.4glycemic control for adults with diabetes: <7.0HbA1c (Bld) [Mass fraction]8.7 %High4.3-5.6FChildren's Hospital for RehabilitationComment on above:Result Comment: Increased risk for diabetes: 5.7 - 6.4 diabetes: >6.4 glycemic control for adults with diabetes: <7.0Performed By: #### CMP, CBC #### [facility] [address] [place] [address] USAHemoglobin [Mass/volume] in BloodOrdered By: Brook Huddleston on 27-49-8860Jcznlodlal (Bld) [Mass/Vol]Hemoglobin [Mass/volume] in BloodLow 13.0-17.0[facility] – JacksonLeukocytes [#/volume] corrected for nucleated erythrocytes in Blood by Automated counOrdered By: Brook Huddleston on 43-68-9385RXO corrected for nucl RBC Auto (Bld) [#/Vol]Leukocytes [#/volume] corrected for nucleated erythrocytes in Blood by Automated coun4.1-10.5FChildren's Hospital for RehabilitationLipid Panelon 53-65-9404LSN Cholesterol,Pkcdkgomcw43 mg/dLNormal0-100The [facility] GroupComment on above:Result Comment: LDL ATP III CLASSIFICATION LDL less than 100 mg/dL Optimal LDL 100-129 mg/dL Near or above optimal LDL 130-159 mg/dL Borderline high LDL 160-189 mg/dL High LDL greater than 189 mg/dL Very highPerformed By: #### CMP, CBC #### [facility] [address] [place] [address] USATriglyceride w/Wcpcai82 mg/dLNormal0-149The [facility] GroupComment on above:Result Comment: TRIG ATP III CLASSIFICATION TRIG less than 150 mg/dL Normal TRIG 150-199 mg/dL Borderline high TRIG 200-500 mg/dL High TRIG greater than 500 mg/dL Very high Standard traceable to the Center for Disease Conrtrol and Prevention (CDC) test method.Performed By: #### CMP, CBC #### [facility] [address] [place] [address] USAVLDL QAHCXIKENTH53 mg/dLNoSelect Specialty Hospital - Winston-Salem Physician GroupComment on above:Performed By: #### CMP, CBC #### [facility] [address] [place] [address] USALymphocytes Auto (Bld) [#/Vol]Ordered By: Brook Huddleston on 87-62-4111Ewppvghtmzs (Bld) [#/Vol]Lymphocytes [#/volume] in Blood by Automated count1.00-4.8[facility] – JacksonLymphocytes/100 WBC Auto (Bld) Ordered By: Brook Huddleston on 73-90-9542Esbyxjabbyg/100 WBC (Bld)Lymphocytes/100 leukocytes in Blood by Automated count.[facility] – JacksonMCH Auto (RBC) [Entitic mass]Ordered By: Brook Huddleston on 22-86-0661GTJ (RBC) [Entitic mass] MCH [Entitic mass] by Automated count27.5-35.2FChildren's Hospital for Rehabilitation MCHC Auto (RBC) [Mass/Vol]Ordered By: Brook Huddleston on 47-78-4706YSYO (RBC) [Mass/Vol]MCHC [Mass/volume] by Automated count32.5-35.6FChildren's Hospital for RehabilitationMCV Auto (RBC) [Entitic vol]Ordered By: Brook Huddleston on 62-43-9442UPN (RBC) [Entitic vol]MCV [Entitic volume] by Automated iezklMccf14.5-101[facility] – JacksonMonocytes Auto (Bld) [#/Vol]Ordered By: Brook Huddleston on 02-26-7159Dcvmphyet (Bld) [#/Vol]Automated blood monocyte count0.0-0.8[facility] JacksonMonocytes/100 WBC Auto (Bld)Ordered By: Brook Huddleston on 34-58-4145Qrpwjbmzh/100 WBC (Bld)Automated monocyte %.[facility] – JacksonNeutrophils Auto (Bld) [#/Vol]Ordered By: Brook Huddleston on 11-11-2024 Neutrophils (Bld) [#/Vol]Neutrophils [#/volume] in Blood by Automated count 1.8-7.7FChildren's Hospital for RehabilitationNeutrophils/100 WBC Auto (Bld)Ordered By: Brook Huddleston on 02-16-8000Gtzoxryjwlx/100 WBC (Bld)Automated neutrophil %. [facility] – JacksonNo Panel InformationOrdered By: Helen Ochoa on 62-94-5426Lpwwpuheh GFR (CKD-EPI)16.571 mL/MinHolzer Medical Center – JacksonPharmacy Creatinine Clearance (ChemN/[facility] 16.571 mL/MinHolzer Medical Center – JacksonN/[facility] HospitalNucleated erythrocytes [Presence] in Blood by Automated countOrdered By: Brook Huddleston on 31-78-5897Ogcovvdul RBC Auto Ql (Bld)Nucleated erythrocytes [Presence] in Blood by Automated count0-0.5FChildren's Hospital for Rehabilitation Platelet mean volume Auto (Bld) [Entitic vol]Ordered By: Brook Huddleston on 11-11-2024 Platelet mean volume (Bld) [Entitic vol]Platelet mean volume [Entitic volume] in Blood by Automated count6.6-10.1FChildren's Hospital for RehabilitationPlatelets Auto (Bld) [#/Vol]Ordered By: Brook Huddleston on 36-90-7112Drrmexvoe (Bld) [#/Vol]Platelets [#/volume] in Blood by Automated -454VwuncphffHolzer Medical Center – Jackson Potassium [Moles/volume] in Serum or PlasmaOrdered By: Helen Ochoa on 56-82-5721Swtrihaar [Moles/Vol]Potassium [Moles/volume] in Serum or Plasma 3.5-5.1FChildren's Hospital for RehabilitationPotassium [Moles/Vol]4.6 mmol/LNormal 3.5-5.1FChildren's Hospital for RehabilitationComment on above:Performed By: #### CMP, CBC #### [place] [address] USAProtein [Mass/volume] in Serum or PlasmaOrdered By: Helen Ochoa on 28-06-6460Kalgfgn [Mass/Vol]Protein [Mass/volume] in Serum or Plasma6.4-8.9[facility] – JacksonProtein [Mass/Vol]6.8 g/dLNormal 6.4-8.9[facility] – JacksonComment on above:Performed By: #### CMP, CBC #### [facility] [address] [place] [id number] USARBC Auto (Bld) [#/Vol]Ordered By: Brook Huddleston on 11-11-2024 RBC (Bld) [#/Vol]Erythrocytes [#/volume] in Blood by Automated countLow3.90-5.60 [facility] Hospitalerum globulin measurement by calculation (mass/volume)Ordered By: Helen Ochoa on 13-53-3718Sonkockv (S) [Mass/Vol]3.1 g/dLNormMedina HospitalComment on above:Performed By: #### CMP, CBC #### [facility] [address] [place] [id number] USASerum or plasma albumin/globulin mass ratioOrdered By: Helen Ochoa on 25-46-0893Ttppoge/Globulin [Mass ratio]Serum or plasma albumin/globulin mass ratioHolzer Medical Center – JacksonAlbumin/Globulin [Mass ratio]1.2 {ratio}NormalHolzer Medical Center – JacksonComment on above: Performed By: #### CMP, CBC #### [facility] [address] [place] [id number] USASerum or plasma anion gap determinationOrdered By: Helen Ochoa on 91-31-5176Nzbjx gap [Moles/Vol]Serum or plasma anion gap determination 6.0-15.0[facility] – JacksonAnion gap [Moles/Vol]13.0 mmol/LNormal 6.0-15.0[facility] JacksonComment on above:Performed By: #### CMP, CBC #### [facility] [address] [place] [address] USASerum or plasma total cholesterol/high density lipoprotein (HDL) cholesterol mass ratOrdered By: Helen Ochoa on 11-11-2024 Cholesterol.total/Cholesterol in HDL [Mass ratio]Serum or plasma total cholesterol/high density lipoprotein (HDL) cholesterol mass rat<5.0[facility] JacksonCholesterol.total/Cholesterol in HDL [Mass ratio]3.3 {ratio}Normal<5.0[facility] JacksonComment on above:Performed By: #### CMP, CBC #### [place] [address] USASodium [Moles/volume] in Serum or PlasmaOrdered By: Helen Ochoa on 35-15-0987Chepte [Moles/Vol]Sodium [Moles/volume] in Serum or Tptmfl753-904FfijzducrToledo Hospitalodium [Moles/Vol]141 mmol/LNormal 136-145[facility] – JacksonComment on above:Performed By: #### CMP, CBC #### [place] [address] USAThyrotropin [Units/volume] in Serum or PlasmaOrdered By: Helen Ochoa on 37-87-5296WZE QnThyrotropin [Units/volume] in Serum or Plasma Low0.45-5.33[facility] – JacksonTS Qn0.11 m[IU]/LLow0.45-5.33 [facility] JacksonComment on above:Result Comment: PERFORMED BY: [place] [address] PATHOLOGIST DOCK SUPERINTENDENT DOMINIC FRANK M.D.Performed By: #### CMP, CBC #### [place] [id number] USAThyroxine (T4) free [Mass/volume] in Serum or Plasma Ordered By: Helen Ochoa on 01-53-5212Gyli T4 [Mass/Vol]Thyroxine (T4) free [Mass/volume] in Serum or PlasmaHigh0.61-1.12[facility] Free T4 [Mass/Vol]1.13 ng/dLHigh0.61-1.12[facility] Comment on above:Performed By: #### CMP, CBC #### [place] [address] USATriglyceride [Mass/volume] in Serum or PlasmaOrdered By: Helen Ochoa on 70-25-8032Vnjuvttueaju [Mass/Vol]Triglyceride [Mass/volume] in Serum or Plasma0[facility] – JacksonComment on above:TRIG ATP III CLASSIFICATIONTRIG less than 150 mg/dL NormalTRIG 150-199 mg/dL Borderline highTRIG 200-500 mg/dL High TRIG greater than 500 mg/dL Very highStandard traceable to the Center for Disease Conrtrol and Prevention (CDC) test method. Triglyceride [Mass/Vol]79 mg/dL0-149[facility] – JacksonUrea nitrogen [Mass/volume] in Serum or PlasmaOrdered By: Helen Ochoa on 49-44-5156Sexh nitrogen [Mass/Vol]Urea nitrogen [Mass/volume] in Serum or Plasma High7Hol[facility] Medical Center – JacksonUrea nitrogen [Mass/Vol]52 mg/dLHigh 03-10[facility] JacksonComment on above:Performed By: #### CMP, CBC #### [facility] [address] [place] [id number] USAWBC Auto (Bld) [#/Vol]Ordered By: Brook Huddleston on 11-11-2024 WBC (Bld) [#/Vol]Leukocytes [#/volume] in Blood by Automated count4.1-10.5 [facility] – JacksonUrine Cultureon 33-84-4346Cetflylv identified Cx Nom (U)ORGANISM: Jessica albicans (O:CANALB) [place] Count >100,000 PERFORMED BY: [facility] [address] [place] [address] PATHOLOGIST DOCK SUPERINTENDENT DOMINIC FRANK M.D.NormalThe [facility] Physician GroupComment on above: Performed By: #### GLULS #### Point of Care testing ,Urine cultureOrdered By: Orquidea Issa on 81-26-4331Gxiogplh identified Cx Nom (U) AbnormalHolzer Medical Center – JacksonAmbulatory Visit Summaryon 11-07-2024 Ambulatory Visit SummaryAmbulatory Visit Summary PATSY MILLS :1945 Visit Date:11/07/2024 Ambulatory Visit Instructions Your Diagnosis Recurrent UTI Your Care Team Attending Physician - EFREN RICKS, Santi Briceño Primary Care Physician - HELEN OCHOA MD This Is Your Medications List aspirin (aspirin 81 mg Chew Tab) atorvastatin (atorvastatin 20 mg Tab) bifidobacterium-lactobacillus (Probiotic + Colostrum) cholecalciferol (Vitamin D3 2000 [...] Cystoscopic removal of ureteric stent (08/20/2012), Cystoscopic ure teroneocystostomy with insertion 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 What to do next Scheduled Follow-Up Appointments Thursday 12:30 PM EDT With: Pratima Reno PA-C Where: [facility] [address] [address]- Medications What How Much When Why Instructions Unchanged aspirin (aspirin 81 mg Chew Tab) Chewed Every day Unchanged atorvastatin (atorvastatin 20 mg Tab) 1 Tablets By Mouth Every day Unchanged bifidobacterium-lactobacillus (Probiotic + Colostrum) By Mouth Every day [...] 2 times a day take 1 cap morningof cath change and 12hrs after Unchanged oxybutynin [...] you for choosing us for your care. [facility] HospitalUrine Cultureon 10-17-2024 Bacteria identified Cx Nom (U)ORGANISM: Staphylococcus aureus (O:STAAUR) [place] Count >100,000 Organism Comments ID may change to MRSA upon completion of DEEPA Aerobic DEEPA Charge (PCMIC38) SUSCEPTIBILITY ORGANISM: O:STAAUR ANTIBIOTIC INTERPRETATION DEEPA Ceftaroline S <0.5 Ciprofloxacin R >2 Daptomycin S <0.5 Levofloxacin R >4 Linezolid S 2 Nitrofurantoin S <32 Oxacillin S 1 Penicillin RADHA >2 Tetracycline S <4 Trimethoprim/Sulfamethoxazole R >2 Vancomycin S 0.5 S = SUSCEPTIBLE I = INTERMEDIATE R = RESISTANT BLANK = DATA NOT AVAILABLE, OR DRUG NOT ADVISABLE OR TESTED R* = RESISTANCE DUE TO EXTENDED SPECTRUM BETA-LACTAMASES ESBL = EXTENDED SPECTRUM BETA-LACTAMASE TFG = THYMIDINE-DEPENDENT STRAIN RADHA = BETA-LACTAMASE POSITIVE IB = INDUCIBLE BETA-LACTAMASE. APPEARS IN PLACE OF 'S' WITH SPECIES KNOWN TO POSSESS INDUCIBLE BETA-LACTAMASES. POTENTIALLY THEY MAY BECOME RESISTANT TO ALL B-LACTAM DRUGS. PERFORMED BY: [place] [address] PATHOLOGIST DOCK SUPERINTENDENT DOMINIC FRANK M.D.NormalBayfront Health St. Petersburg Physician GroupComment on above: Performed By: #### BMP #### [address] StreetUrine cultureOrdered By: Orquidea Issa on 22-50-6526Oinjzawz identified Cx Nom (U)AbnormalHolzer Medical Center – JacksonUrology Office/Clinic Noteon 66-73-3265Ivzadhh Office/Clinic NoteUrology Office/Clinic Note HPI Staff SPT exchange, discuss further UTI prevention History of Present Illness I have reviewed and verified the staff HPI to be accurate for this encounter. Portions of this record may have been created with voice recognition artificial intelligence software, specifically [employer], [employer] and or [employer]. Substitutions may have occurred due to the [...] complete irrigations. Discussed with the patient starting ycbg-ahf-aqyxqwy UTI prevention supplements including d-mannose, Cranberry and [...] infection tx, then resume after completion. Pt verbalizesunderstanding. Urine pH 5.5 eGFR 09/27/23 - 30.726 does follow w/ Dr Barrett, if eGFR declines <30, will need to stop methenamine -start methenamine 1g BID, rx sent to pharm Ordered: methenamine, 1 gm = 1 tab(s), Oral, BID, # 60 tab(s), Refills(s) 6, Pharmacy: [id number], 171, cm, 08/31/24 11:19:00 EST, Height/Length [...] Cystoscopic removal of ureteric stent (08/20/2012), Cystoscopic ure teroneocystostomy with insertion of ureteral stent (08/05/2012), ESWL [...] Never Smokeless T (more content not included)... [facility] HospitalComment on above:Result Comment: Electronically Signed By: CARLEY Damian APRN, Makayla Soriano\.br\Date and Time Signed: 10/03/24 16:19 ESTIMMUNOFIXATION, (JOSE C), URINEon 52-97-6848NMRORADVROSKEA, (JOSE C), URINEComment: .NOMS HealthcareComment on above:Presence of monoclonal protein is unclear at this time. Suggest repeat in 3 to 6 months if clinically indicated. Performed at: [facility] [id number] Trapeze Artist: Melchor Agrawal PhD, Phone: [phone] No Panel Informationon 63-75-5034HPLI HealthcarePROTEIN ELECTRO, RANDOM URINEon 07-00-5140ROZUWVV, URINE44.5 %.[facility]S PxvdgmwdglMUJBC-9-VGWPWBDG, URINE3 %.[facility]S MivgdgehohSTZNX-1-KJURNHDY, URINE10.8 %.NOMS HealthcareBETA GLOBULIN, URINE19.6 %.NOMS HealthcareGAMMA GLOBULIN, URINE22.1 %.NOMS HealthcareM-SPIKE %Comment:Not ObservedNOMS HealthcareComment on above:UPE shows an asymmetrical gamma. Refer to urine JOSE C for further evaluation. PLEASE NOTE:Comment.NOMS HealthcareComment on above:Protein electrophoresis scan will follow via computer, mail, or camera supervisor delivery. Performed at: [facility] [id number] Trapeze Artist: Melchor Agrawal PhD, Phone: [phone] Protein (U) [Mass/Vol]170.1 mg/dLNot Estab.[facility]S Vcdwnrvotz26 hour urine albumin/total protein ratio by electrophoresisOrdered By: Brook Huddleston on 74-51-6857Tyjxnqz Elph (24H U) [Mass fraction]Albumin/Protein.total in 24 hour Urine by Electrophoresis.[facility] – JacksonAlbumin Elph (24H U) [Mass fraction]44.5 %.[facility] – Jackson24 hour urine gamma globulin/total protein ratio by electrophoresisOrdered By: Brook Huddleston on 31-74-7743Qkmun globulin Elph (24H U) [Mass fraction]Gamma globulin/Protein.total in 24 hour Urine by Electrophoresis.[facility] – JacksonGamma globulin Elph (24H U) [Mass fraction]22.1 %.[facility] Jackson24 hour urine protein monoclonal/total protein by electrophoresisOrdered By: Brook Huddleston on 84-24-9306Vjzbpyt.monoclonal Elph (24H U) [Mass fraction]Protein.monoclonal/Protein.total in 24 hour Urine by ElectrophoresisNot ObservedHolzer Medical Center – JacksonComment on above:UPE shows an asymmetrical gamma. Refer to urine JOSE C for further evaluation. Protein.monoclonal Elph (24H U) [Mass fraction]Comment: %Not ObservedHolzer Medical Center – JacksonComment on above:UPE shows an asymmetrical gamma. Refer to urine JOSE C for further evaluation.Alanine aminotransferase [Enzymatic activity/volume] in Serum or PlasmaOrdered By: Price Crain on 40-92-7287ZPM [Catalytic activity/Vol]Alanine aminotransferase [Enzymatic activity/volume] in Serum or Plasma7-52[facility] – JacksonAlbumin [Mass/volume] in Serum or Plasma by Bromocresol green (BCG) dye binding methoOrdered By: Price Crain on 24-34-7143Zlfgemm BCG dye [Mass/Vol]Albumin [Mass/volume] in Serum or Plasma by Bromocresol green (BCG) dye binding metho3.5-5.7FChildren's Hospital for RehabilitationAlkaline phosphatase [Enzymatic activity/volume] in Serum or PlasmaOrdered By: Price Crain on 70-22-7556WOS [Catalytic activity/Vol]Alkaline phosphatase [Enzymatic activity/volume] in Serum or XscsmbRahz25-743FsxdnszfoHolzer Medical Center – JacksonAspartate aminotransferase [Enzymatic activity/volume] in Serum or PlasmaOrdered By: Price Crain on 45-18-0352ONU [Catalytic activity/Vol]Aspartate aminotransferase [Enzymatic activity/volume] in Serum or Ubatdy59-88VovvjklgyHolzer Medical Center – JacksonBasophils Auto (Bld) [#/Vol]Ordered By: Price Crain on 05-10-1939Wjxdripid (Bld) [#/Vol]Automated basophil count 0.0-0.2FChildren's Hospital for RehabilitationBasophils/100 WBC Auto (Bld)Ordered By: Price Crain on 16-44-3035Uxrbdtois/100 WBC (Bld)Automated basophil %.[facility] – JacksonBilirubin.total [Mass/volume] in Serum or PlasmaOrdered By: Price rCain on 23-44-4628Haqkwfyfh [Mass/Vol]Bilirubin.total [Mass/volume] in Serum or Plasma0.3-1.0[facility] – JacksonCalcium [Mass/volume] in Serum or PlasmaOrdered By: Price Crain on 52-07-2072Fhnrcjq [Mass/Vol] Calcium [Mass/volume] in Serum or Plasma8.6-10.3FChildren's Hospital for RehabilitationCarbon dioxide, total [Moles/volume] in Serum or PlasmaOrdered By: Price Crain on 19-19-2151MF4 [Moles/Vol]Carbon dioxide, total [Moles/volume] in Serum or Twocvv61.0-31.0[facility] – JacksonChloride [Moles/volume] in Serum or PlasmaOrdered By: Price Crain on 13-02-1761Ftenvthp [Moles/Vol] Chloride [Moles/volume] in Serum or KqfytqXegr90-945VgspyzaaxHolzer Medical Center – JacksonComplete Blood Count Auto Diffon 85-56-6187Xztuyxara (Bld) [#/Vol]0.0 10*3/uLNormal0.0-0.2The [facility] Physician GroupComment on above:Result Comment: PERFORMED BY: [place] [address] PATHOLOGIST DOCK SUPERINTENDENT DOMINIC FRANK M.D.Performed By: #### CMP, CBC #### [facility] [address] [place] [address] USABasophils/100 WBC (Bld)0.1 %Normal.The [facility] Physician GroupComment on above:Performed By: #### CMP, CBC #### [facility] [address] [place] [address] USAEosinophils (Bld) [#/Vol]0.3 10*3/uLNormal0.0-0.45The [facility] Physician GroupComment on above:Performed By: #### CMP, CBC #### [place] [address] USAEosinophils/100 WBC (Bld)4.6 %Normal.The [facility] Physician GroupComment on above:Performed By: #### CMP, CBC #### [place] [address] USAErythrocyte distribution width (RBC) [Ratio]17.0 %High 12.0-14.8The [facility] Physician GroupComment on above:Performed By: #### CMP, CBC #### [place] [address] USAHematocrit (Bld) [Volume fraction]31.1 %Low38.8-50.0The [facility] Physician GroupComment on above:Performed By: #### CMP, CBC #### [place] [address] USAHemoglobin (Bld) [Mass/Vol]10.7 g/dLLow13.0-17.0The [facility] Physician GroupComment on above:Performed By: #### CMP, CBC #### [place] [address] USALymphocytes (Bld) [#/Vol]1.1 10*3/uLNormal1.00-4.8The [facility] Physician GroupComment on above:Performed By: #### CMP, CBC #### [place] [address] USALymphocytes/100 WBC (Bld)16.9 %Normal.The [facility]ician GroupComment on above:Performed By: #### CMP, CBC #### [place] [address] USAMCH (RBC) [Entitic mass]36.0 slGcrt38.5-35.2The [facility] Physician GroupComment on above:Performed By: #### CMP, CBC #### [address] [address] USAMCV (RBC) [Entitic vol]104.9 ePYmve92.5-101The [facility] Physician GroupComment on above:Performed By: #### CMP, CBC #### [place] [address] USAMean Corpuscular HGB Conc34.3 g/iGZeavlo71.5-35.6The [facility] Physician GroupComment on above:Performed By: #### CMP, CBC #### [place] [address] USAMonocytes (Bld) [#/Vol]0.4 10*3/uLNormal0.0-0.8The [facility] Physician GroupComment on above:Performed By: #### CMP, CBC #### [place] [address] USAMonocytes/100 WBC (Bld)6.3 %Normal.The [facility] Physician GroupComment on above:Performed By: #### CMP, CBC #### [place] [address] USANeutrophils (Bld) [#/Vol]4.7 10*3/uLNormal1.8-7.7The [facility] Physician GroupComment on above:Performed By: #### CMP, CBC #### [place] [address] USANeutrophils/100 WBC (Bld)72.1 %Normal.The [facility] Physician GroupComment on above:Performed By: #### CMP, CBC #### [place] [address] USANRBC%0.1 /100{WBC}Normal0-0.5The [facility] Comment on above:Performed By: #### CMP, CBC #### [place] [address] USAPlatelet mean volume (Bld) [Entitic vol]8.0 fLNormal 6.6-10.1The [facility] Physician GroupComment on above:Performed By: #### CMP, CBC #### [address] [place] [address] USAPlatelets (Bld) [#/Vol]183 10*3/zIChxlcu124-250Xgv [facility] Physician GroupComment on above:Performed By: #### CMP, CBC #### [place] [address] USARBC (Bld) [#/Vol]2.97 10*6/uLLow3.90-5.60The [facility] Physician GroupComment on above:Performed By: #### CMP, CBC #### [place] [address] USAWBC (Bld) [#/Vol]6.5 10*3/uLNormal4.1-10.5The [facility] Physician GroupComment on above:Performed By: #### CMP, CBC #### [place] [address] USAComprehensive Metabolic Panelon 88-35-4636Zvxfafd [Mass/Vol]3.9 g/dLNormal3.5-5.7The [facility] Physician GroupComment on above: Performed By: #### CMP, CBC #### [place] [address] USAAlbumin/Globulin [Mass ratio]1.6 {ratio}NormalThe [facility] Physician GroupComment on above:Performed By: #### CMP, CBC #### [place] [address] USAALP [Catalytic activity/Vol]110 U/TLvvk20-166Egt [facility] Physician GroupComment on above:Performed By: #### CMP, CBC #### [facility] [address] [place] [address] USAALT [Catalytic activity/Vol]22 U/LNormal7-52The [facility] Physician GroupComment on above:Performed By: #### CMP, CBC #### [place] [address] USAAnion gap [Moles/Vol]9.7 mmol/LNormal6.0-15.0The [facility] Physician GroupComment on above:Performed By: #### CMP, CBC #### [facility] [address] [place] [address] USAAST [Catalytic activity/Vol]22 U/IYtypea20-36Fsy [facility] Physician GroupComment on above:Performed By: #### CMP, CBC #### [facility] [address] [place] [address] USABilirubin [Mass/Vol]0.4 mg/dLNormal0.3-1.0The [facility] Physician GroupComment on above:Performed By: #### CMP, CBC #### [facility] [address] [place] [address] USACalcium [Mass/Vol]8.6 mg/dLNormal8.6-10.3The [facility] Physician GroupComment on above:Performed By: #### CMP, CBC #### [place] [address] USAChloride [Moles/Vol]108 mmol/UIdpx41-073Gsi [facility] Physician GroupComment on above:Performed By: #### CMP, CBC #### [place] [address] USACO2 [Moles/Vol]23.4 mmol/UGoznds50.0-31.0The [facility] Physician GroupComment on above:Performed By: #### CMP, CBC #### [place] [address] USACreatinine [Mass/Vol]2.14 mg/dLHigh0.70-1.30The [facility] Physician GroupComment on above:Performed By: #### CMP, CBC #### [place] [address] USACreatinine Clr Calc Oxoyrmqs28.59NormalThe [facility] Physician GroupComment on above:Result Comment: PERFORMED BY: [place] [address] PATHOLOGIST DOCK SUPERINTENDENT DOMINIC FRANK M.D.Performed By: #### CMP, CBC #### [place] [address] USAEstimated GFR30.726 mL/MinNormalThe [facility] Physician GroupComment on above:Performed By: #### CMP, CBC #### [facility] [address] [place] [address] USAGlobulin (S) [Mass/Vol]2.5 g/dLNormLake City VA Medical Center Physician GroupComment on above:Performed By: #### CMP, CBC #### [facility] [address] [place] [address] USAGlucose [Mass/Vol]126 mg/iOIdzi86-479Rww [facility] Physician GroupComment on above:Result Comment: Random Glucose Reference Range is dependent on time and content of last meal. Glucose of more than 200 mg/dL in a nonstressed, ambulatory subject supports the diagnosis of Diabetes Mellitus. ADA recommended reference rangePerformed By: #### CMP, CBC #### [facility] [address] [place] [address] USAPotassium [Moles/Vol]4.1 mmol/LNormal3.5-5.1The [facility] Physician GroupComment on above:Performed By: #### CMP, CBC #### [facility] [address] [place] [address] USAProtein [Mass/Vol]6.4 g/dLNormal6.4-8.9The [facility] Physician GroupComment on above:Performed By: #### CMP, CBC #### [facility] [address] [place] [address] USASodium [Moles/Vol]137 mmol/FYqtsff758-111Glr [facility] Physician GroupComment on above:Performed By: #### CMP, CBC #### [facility] [address] [place] [address] USAUrea nitrogen [Mass/Vol]29 mg/dLHigh7-25The [facility] Physician GroupComment on above:Performed By: #### CMP, CBC #### [facility] [address] [place] [address] USACreatinine [Mass/volume] in Serum or PlasmaOrdered By: Price Crain on 63-54-4703Szkriedqhq [Mass/Vol]Creatinine [Mass/volume] in Serum or PlasmaHigh0.70-1.30[facility] – JacksonCreatinine [Mass/volume] in UrineOrdered By: Price Crain on 43-00-8352Kyxeieludl (U) [Mass/Vol] Creatinine [Mass/volume] in UrineHolzer Medical Center – JacksonComment on above:No reference range establishedEosinophils Auto (Bld) [#/Vol]Ordered By: Price Crain on 72-59-1564Lgvyrrtpnpm (Bld) [#/Vol]Automated eosinophil count 0.0-0.45[facility] – JacksonEosinophils/100 WBC Auto (Bld)Ordered By: Price Crain on 00-79-5233Keeushanapa/100 WBC (Bld)Automated eosinophil %. [facility] – JacksonErythrocyte distribution width Auto (RBC) [Ratio]Ordered By: Price Crain on 19-03-4892Tgukmwagpcn distribution width (RBC) [Ratio]Erythrocyte distribution width [Ratio] by Automated countHigh 12.0-14.8[facility] – JacksonFolate [Mass/volume] in Serum or PlasmaOrdered By: Price Crain on 74-35-3939Zkeeip [Mass/Vol]Folate [Mass/volume] in Serum or Plasma>5.9[facility] Center – JacksonComment on above:Folate reference range: >5.9 ng/mlThe WHO technical consultation on folate and vitamin n59gaapbstfzawp has determined that folate concentrations lessthan 4 ng/ml are considered deficient.Free K+L LT Chains, Qn, Son 76-41-2336Uhzl [place] Light Chains, S41.5 mg/LHigh3.3-19.4The [facility] Physician GroupComment on above:Performed By: #### BMP #### [facility] [address] [place] [address] USAFree Lambda Light Chains, S31.4 mg/LHigh5.7-26.3The [facility] Physician GroupComment on above:Performed By: #### BMP #### [facility] [address] [place] [address] USAKappa/Lambda Ratio, S1.92Qiifoz8.26-1.65The [facility] Physician GroupComment on above:Result Comment: Performed at: CB - [facility] [address] [place], [place] [id number] Trapeze Artist: Melchor Agarwal PhD, Phone: [phone] PERFORMED BY: [place] [address] PATHOLOGIST DOCK SUPERINTENDENT DOMINIC FRANK M.D.Performed By: #### BMP #### [place] [address] USAGlobulin Calc (S) [Mass/Vol]Ordered By: Price Crain on 04-58-1991Pspepgpa (S) [Mass/Vol]Serum globulin measurement by calculation (mass/volume)[facility] – JacksonGlucose [Mass/volume] in Serum or PlasmaOrdered By: Price Crain on 43-36-0456Bpskzkw [Mass/Vol]Glucose [Mass/volume] in Serum or KprqqqSsrt51-569AptmiyperHolzer Medical Center – Jackson Comment on above:ADA recommended reference rangeRandom Glucose Reference Range is dependent on time and content of last meal. Glucose of more than 200 mg/dL in a nonstressed, ambulatory subject supports the diagnosisof Diabetes Mellitus. Hematocrit Auto (Bld) [Volume fraction]Ordered By: Price Crain on 09-27-2024 Hematocrit (Bld) [Volume fraction]Hematocrit [Volume Fraction] of Blood by Automated pexonKpn08.8-50.0[facility] – JacksonHemoglobin [Mass/volume] in BloodOrdered By: Price Crain on 55-69-7455Ahsnbyxbpx (Bld) [Mass/Vol]Hemoglobin [Mass/volume] in PiikoZao96.0-17.0[facility] – JacksonImmunofixation for UrineOrdered By: Brook Huddleston on 09-27-2024 Interpretation Immunofixation (U) [Interp]Immunofixation for Urine.[facility] – JacksonComment on above:Presence of monoclonal protein is unclear at this time. Suggestrepeat in 3 to 6 months if clinically indicated.Performed at: - [facility] [id number] Director: Melchor Agrawal PhD, Phone: [phone] Immunofixation (U) [Interp]Comment:.[facility] – JacksonComment on above:Presence of monoclonal protein is unclear at this time. Suggestrepeat in 3 to 6 months if clinically indicated.Performed at: [facility] InstallMonetizer[address] [id number] Director: Melchor Agrawal PhD, Phone: [phone], (JOSE C), Urineon 30-19-8877Oodbwswdzuqpcs, (JOSE C), Urine Comment:Normal.The [facility] Physician GroupComment on above:Result Comment: Presence of monoclonal protein is unclear at this time. Suggest repeat in 3 to 6 months if clinically indicated. Performed at: [address] [id number] Trapeze Artist: Melchor Agrawal PhD, Phone: [phone] PERFORMED BY: [place] [address] PATHOLOGIST DOCK SUPERINTENDENT DOMINIC FRANK M.D.Performed By: #### BMP #### [facility] [address] [place], [place] [address] USAImmunoglobulins A/G/M, Qn, Seron 75-78-3371Qtexknoyhovpxo A, Drzzi432 mg/sZTxlvjx35-014Oyy [facility]ician [facility] Hospital Of MeridianComment on above: Performed By: #### BMP #### [facility] [address] [place] [address] USAImmunoglobulin G1053 mg/pWUvsbhs342-2070Khc [facility] Physician [facility] Of MeridianComment on above:Performed By: #### BMP #### [address] [address] USAImmunoglobulin M, Serum58 mg/zUHxhuxz27-090Lac [facility] Physician GroupComment on above:Result Comment: Performed at: [facility] InstallMonetizer[address] [id number] Trapeze Artist: Melchor Agrawal PhD, Phone: [phone] By: #### BMP #### [facility] [address] [place], [place] [address] USALDH Lactate Dehydrogenaseon 47-71-4223ZJV Lactate Xeicwawubpdiu082 U/ADyazsj523-143Oki [facility] Physician GroupComment on above: Result Comment: PERFORMED BY: [facility] [address] [place] [address] PATHOLOGIST DOCK SUPERINTENDENT DOMINIC FRANK M.D.Performed By: #### BMP #### [facility] [address] [place] [address] USALDH Lactate to pyruvate reaction [Catalytic activity/Vol] on 50-47-5969QSA LACTATE COYARIZEWBTTV612 U/L140 - 271 U/LNOMS HealthcareNOMS HealthcareLactate dehydrogenase [Enzymatic activity/volume] in Serum or Plasma by Lactate to pyOrdered By: Brook Huddleston on 09-46-6947IYV Lactate to pyruvate reaction [Catalytic activity/Vol]Lactate dehydrogenase [Enzymatic activity/volume] in Serum or Plasma by Lactate to uw869-973YaugdxfrvHolzer Medical Center – JacksonLDH Lactate to pyruvate reaction [Catalytic activity/Vol]140 U/L 140-271Hol[facility] Center – JacksonLeukocytes [#/volume] corrected for nucleated erythrocytes in Blood by Automated counOrdered By: Price Crain on 86-22-2921UIJ corrected for nucl RBC Auto (Bld) [#/Vol]Leukocytes [#/volume] corrected for nucleated erythrocytes in Blood by Automated coun4.1-10.5FChildren's Hospital for RehabilitationLymphocytes Auto (Bld) [#/Vol]Ordered By: Price Crain on 37-07-1243Gqjbvrognrf (Bld) [#/Vol]Lymphocytes [#/volume] in Blood by Automated count1.00-4.8[facility] – JacksonLymphocytes/100 WBC Auto (Bld)Ordered By: Price Crain on 03-88-0253Uastjqlsaxd/100 WBC (Bld) Lymphocytes/100 leukocytes in Blood by Automated count.[facility] Auto (RBC) [Entitic mass]Ordered By: Price Crain on 85-98-5090ONP (RBC) [Entitic mass]MCH [Entitic mass] by Automated countHigh 27.5-35.2FSelect Medical Cleveland Clinic Rehabilitation Hospital, AvonHC Auto (RBC) [Mass/Vol]Ordered By: Price Crain on 47-95-0898QKEW (RBC) [Mass/Vol]MCHC [Mass/volume] by Automated count32.5-35.6FChildren's Hospital for RehabilitationMCV Auto (RBC) [Entitic vol] Ordered By: Price Crain on 15-35-4253YTM (RBC) [Entitic vol]MCV [Entitic volume] by Automated ordmcBkaq22.5-101[facility] – JacksonMagnesium on 57-41-4995Lrwjcyzrd [Mass/Vol]2.0 mg/dLNormal1.9-2.7The [facility] Physician GroupComment on above:Performed By: #### BMP #### [place] [address] USAMagnesium [Mass/volume] in Serum or PlasmaOrdered By: Price Crain on 06-54-6279Frwxjcggp [Mass/Vol]Magnesium [Mass/volume] in Serum or Plasma1.9-2.7FChildren's Hospital for RehabilitationMonocytes Auto (Bld) [#/Vol] Ordered By: Price Crain on 42-36-7899Dxcswpnvj (Bld) [#/Vol]Automated blood monocyte count0.0-0.8[facility] – JacksonMonocytes/100 WBC Auto (Bld)Ordered By: Price Crain on 99-60-3081Hwljfzaih/100 WBC (Bld)Automated monocyte %.[facility] – JacksonNeutrophils Auto (Bld) [#/Vol] Ordered By: Price Crain on 14-96-8078Dzayatpxiew (Bld) [#/Vol]Neutrophils [#/volume] in Blood by Automated count1.8-7.7FChildren's Hospital for Rehabilitation Neutrophils/100 WBC Auto (Bld)Ordered By: Price Crain on 09-27-2024 Neutrophils/100 WBC (Bld)Automated neutrophil %.[facility] – JacksonNo Panel InformationOrdered By: Brook Huddleston on 41-04-7538Dcneoji Electrophoresis M-SpikeNot observed g/dLNot ObservedHolzer Medical Center – JacksonProtein Electrophoresis NoteComment.[facility] Comment on above:Protein electrophoresis scan will follow via computer,mail, or camera supervisor delivery.Performed at: [place] [id number] [place], [place] [id number] Director: Melchor Agrawal PhD, Phone: [phone] Random Prot Electrophor NoteComment.[facility] – JacksonComment on above: Protein electrophoresis scan will follow via computer,mail, or camera supervisor delivery.Performed at: [place] [address] [place], [place] [id number] Director: Melchor Agrawal PhD, Phone: [phone].[facility] – JacksonNo Panel InformationOrdered By: Price Crain on 52-02-6666Pddgxgoam GFR (CKD-EPI)30.726 mL/MinHolzer Medical Center – Jackson Pharmacy Creatinine Clearance (Chem31.59[facility] Nucleated erythrocytes [Presence] in Blood by Automated countOrdered By: Price Crain on 42-76-8953Crucyftzp RBC Auto Ql (Bld)Nucleated erythrocytes [Presence] in Blood by Automated count0-0.5FChildren's Hospital for Rehabilitation Parathyrin.intact [Mass/volume] in Serum or PlasmaOrdered By: Price Crain on 40-16-5646Yjoleixkjz.intact [Mass/Vol]Parathyrin.intact [Mass/volume] in Serum or Tvhaky61-93YwebssyapHolzer Medical Center – JacksonParathyroid Hormone Intacton 59-56-7883Maujaprhgbd Hormone Zugpnp26.9 pg/gYFanwmz44-52Zsq [facility] Physician GroupComment on above:Result Comment: PERFORMED BY: [address] [place] [address] PATHOLOGIST DOCK SUPERINTENDENT DOMINIC FRANK M.D.Performed By: #### BMP #### [place] [address] USAPhosphate [Mass/volume] in Serum or PlasmaOrdered By: Price Crain on 98-03-3567Dpiwitftw [Mass/Vol]Phosphate [Mass/volume] in Serum or Plasma2.5-4.5FChildren's Hospital for RehabilitationPhosphoruson 30-28-9657Xikyanmyx [Mass/Vol]3.7 mg/dLNormal2.5-4.5The [facility] Physician GroupComment on above: Performed By: #### BMP #### [place] [address] USAPlatelet mean volume Auto (Bld) [Entitic vol]Ordered By: Price Crain on 91-77-1524Vsmwfbdp mean volume (Bld) [Entitic vol]Platelet mean volume [Entitic volume] in Blood by Automated count6.6-10.1FChildren's Hospital for RehabilitationPlatelets Auto (Bld) [#/Vol]Ordered By: Price Crain on 09-27-2024 Platelets (Bld) [#/Vol]Platelets [#/volume] in Blood by Automated gevzr947-895 [facility] – JacksonPotassium [Moles/volume] in Serum or Plasma Ordered By: Price Crain on 59-21-9133Wymardnfw [Moles/Vol]Potassium [Moles/volume] in Serum or Plasma3.5-5.1FChildren's Hospital for RehabilitationProtein Creat Ratio Ur Randomon 04-10-1258Olnwynoywy, Urine (Random)89.00 mg/dLNormal The [facility] Physician GroupComment on above:Result Comment: No reference range establishedPerformed By: #### BMP #### [place] [address] USAProtein (U) [Mass/Vol]180 mg/dLHigh0-9The [facility] Physician GroupComment on above:Performed By: #### BMP #### [place] [address] USAUrine Protein/Creatinine Dljfo2003 mg/g{Cre}High0-200The [facility] Physician GroupComment on above:Result Comment: PERFORMED BY: [place] [address] PATHOLOGIST DOCK SUPERINTENDENT DOMINIC FRANK M.D.Performed By: #### BMP #### [place] [address] USAProtein Electro, Random Urineon 39-58-7803Zfakwvz, Urine 44.5 %Normal.The [facility] Physician GroupComment on above:Performed By: #### BMP #### [place] [address] VIUNywxs-1-Iwazdwrp, Urine3.0 %Normal.The [facility] Physician GroupComment on above:Performed By: #### BMP #### [place] [address] TPDPpmdj-3-Cwibpqah, Urine10.8 %Normal.The [facility] Physician GroupComment on above:Performed By: #### BMP #### [place] [address] USABeta Globulin, Urine19.6 %Normal.The [facility] Physician GroupComment on above:Performed By: #### BMP #### [place] [address] USAGamma Globulin, Urine22.1 %Normal.The [facility] Physician GroupComment on above:Performed By: #### BMP #### [place] [address] USAM-Anselmo %Comment:NormalNot ObservedThe [facility] Physician GroupComment on above:Result Comment: UPE shows an asymmetrical gamma. Refer to urine JOSE C for further evaluation.Performed By: #### BMP #### [place] [address] USAPlease Note:CommentNormal.The [facility] Comment on above:Result Comment: Protein electrophoresis scan will follow via computer, mail, or camera supervisor delivery. Performed at: [facility] LabDaniel [place] [id number] Trapeze Artist: Melchor Agrawal PhD, Phone: [phone] PERFORMED BY: [place] [address] PATHOLOGIST DOCK SUPERINTENDENT DOMINIC FRANK M.D.Performed By: #### BMP #### [place] [address] USAProtein Electrophoresis, Serumon 90-63-9021Tyydvve [Mass/Vol]3.4 g/dLNormal2.9-4.4The [facility] Physician GroupComment on above: Performed By: #### BMP #### [place] [address] USAAlbumin/Globulin [Mass ratio]1.1 {ratio}Normal0.7-1.7The [facility] Physician GroupComment on above:Performed By: #### BMP #### [place] [address] SZAGixuy-9-Lusqgypb7.2 g/dLNormal0.0-0.4The [facility] Physician GroupComment on above:Performed By: #### BMP #### [place] [address] GQPFstao-5-Jkpztqyi7.8 g/dLNormal0.4-1.0The [facility] Physician GroupComment on above:Performed By: #### BMP #### [place] [address] USABeta Globulin0.9 g/dLNormal0.7-1.3The [facility] Physician GroupComment on above:Performed By: #### BMP #### [place] [address] USAGamma Globulin1.1 g/dLNormal0.4-1.8The [facility] Physician GroupComment on above:Performed By: #### BMP #### [place] [address] USAGlobulin (S) [Mass/Vol]3.0 g/dLNormal2.2-3.9The [facility] Physician GroupComment on above:Performed By: #### BMP #### [place] [address] USAM-SpikeNot ObservedNormalNot ObservedThe [facility] Physician GroupComment on above:Performed By: #### BMP #### [place] [address] USAProtein [Mass/Vol]6.4 g/dLNormal6.0-8.5The [facility] Physician GroupComment on above:Performed By: #### BMP #### [place] [address] USASPE-NoteCommentNormal.The [facility] Physician GroupComment on above:Result Comment: Protein electrophoresis scan will follow via computer, mail, or camera supervisor delivery. Performed at: - [facility] [address] [place], [place] [id number] Trapeze Artist: Melchor Agrawal PhD, Phone: [phone] By: #### BMP #### [place] [id number] USAProtein [Mass/volume] in Serum or PlasmaOrdered By: Price Crain on 65-83-6638Gcwdpdk [Mass/Vol]Protein [Mass/volume] in Serum or Plasma 6.4-8.9[facility] – JacksonProtein [Mass/volume] in UrineOrdered By: Price Crain on 61-03-0922Dwmzmit (U) [Mass/Vol]Protein [Mass/volume] in UrineHigh0-9[facility] – JacksonRBC Auto (Bld) [#/Vol]Ordered By: Price Crain on 39-53-5704QRU (Bld) [#/Vol]Erythrocytes [#/volume] in Blood by Automated countLow3.90-5.60Toledo Hospitalerum free kappa light chain measurementOrdered By: Brook Huddleston on 74-95-8868Pbpuhlgqjbxqgj light chains.kappa.free (S) [Mass/Vol]Immunoglobulin light chains.kappa.free [Mass/volume] in SerumHigh3.3-19.4FOhio State Harding Hospitalerum globulin measurement (mass/volume)Ordered By: Brook Huddleston on 83-99-0371Gqmspzmd (S) [Mass/Vol]Serum globulin measurement (mass/volume)2.2-3.9[facility] Hospitalerum immunoglobulin free kappa light chains/immunoglobulin free lambda light chainsOrdered By: Brook Huddleston on 22-36-4757Svzxpsjlsibaei light chains.kappa.free/Immunoglobulin light chains.lambda.free (S) [Mass ratio] Immunoglobulin light chains.kappa.free/Immunoglobulin light chains.lambda.free [Mass0.26-1.65[facility] – JacksonComment on above:Performed at: - [facility])[address] [place], [place] [id number] Director: Melchor Agrawal PhD, Phone: [phone] or plasma IgA measurement (mass/volume) Ordered By: Brook Huddleston on 16-25-1221IxX [Mass/Vol]IgA [Mass/volume] in Serum or Ffmxdf26-517FxcexzygjToledo Hospitalerum or plasma IgG measurement (mass/volume)Ordered By: Brook Huddleston on 67-88-4076QlL [Mass/Vol]IgG [Mass/volume] in Serum or Ygysgt947-1279JyrbjslkiToledo Hospitalerum or plasma IgM measurement (mass/volume)Ordered By: Brook Huddleston on 29-97-8853DaT [Mass/Vol]IgM [Mass/volume] in Serum or Fblorz64-015SbikluuzeHolzer Medical Center – JacksonComment on above:Performed at: [facility] [id number] Director: Melchor Agrawal PhD, Phone: [phone] or plasma albumin measurement (mass/volume)Ordered By: Brook Huddleston on 50-37-3547Wwsnjue [Mass/Vol]Albumin [Mass/volume] in Serum or Plasma2.9-4.4FOhio State Harding Hospitalerum or plasma albumin/globulin mass ratioOrdered By: Brook Huddleston on 15-38-9945Flgzcjc/Globulin [Mass ratio]Serum or plasma albumin/globulin mass ratio0.7-1.7FOhio State Harding Hospitalerum or plasma albumin/globulin mass ratioOrdered By: Price Crain on 36-57-4789Qbnpbvz/Globulin [Mass ratio] Serum or plasma albumin/globulin mass ratioHolzer Medical Center – Jackson Serum or plasma alpha 1 globulin measurement by electrophoresis (mass/volume) Ordered By: Brook Huddleston on 89-54-8673Skrdt 1 globulin Elph [Mass/Vol]Serum or plasma alpha 1 globulin measurement by electrophoresis (mass/volume)0.0-0.4 [facility] Hospitalerum or plasma alpha 2 globulin measurement by electrophoresis (mass/volume)Ordered By: Brook Huddleston on 28-01-2150Ihtmn 2 globulin Elph [Mass/Vol]Serum or plasma alpha 2 globulin measurement by electrophoresis (mass/volume)0.4-1.0T[facility]edo Hospitalerum or plasma anion gap determinationOrdered By: Price Crain on 12-76-8639Wyszb gap [Moles/Vol]Serum or plasma anion gap determination6.0-15.0T[facility]edo Hospitalerum or plasma beta globulin measurement by electrophoresis (mass/volume)Ordered By: Brook Huddleston on 18-09-3502Igwu globulin Elph [Mass/Vol] Serum or plasma beta globulin measurement by electrophoresis (mass/volume) 0.7-1.3FOhio State Harding Hospitalerum or plasma gamma globulin measurement by electrophoresis (mass/volume)Ordered By: Brook Huddleston on 09-27-2024 Gamma globulin Elph [Mass/Vol]Serum or plasma gamma globulin measurement by electrophoresis (mass/volume)0.4-1.8Toledo Hospitalerum or plasma immunoglobulin free lambda light chains measurement (mass/volume)Ordered By: Brook Huddleston on 71-40-8042Ykconfhshvniep light chains.lambda.free [Mass/Vol] Immunoglobulin light chains.lambda.free [Mass/volume] in Serum or PlasmaHigh 5.7-26.3FOhio State Harding Hospitalerum total protein measurementOrdered By: Brook Huddleston on 16-37-1186Ntgjquh [Mass/Vol]Protein [Mass/volume] in Serum or Plasma6.0-8.5FOhio State Harding Hospitalodium [Moles/volume] in Serum or PlasmaOrdered By: Price Crain on 26-54-6177Qeiagj [Moles/Vol]Sodium [Moles/volume] in Serum or Pjmmds739-935TnqxhoarmHolzer Medical Center – JacksonUrate [Mass/volume] in Serum or PlasmaOrdered By: Price Crain on 84-31-5481Ofuqj [Mass/Vol]Urate [Mass/volume] in Serum or Plasma4.4-7.6FChildren's Hospital for RehabilitationUrea nitrogen [Mass/volume] in Serum or PlasmaOrdered By: Price Crain on 38-88-3227Joei nitrogen [Mass/Vol]Urea nitrogen [Mass/volume] in Serum or PlasmaHigh7-25[facility] Center – JacksonUric Acidon 09-27-2024 Urate [Mass/Vol]5.2 mg/dLNormal4.4-7.6The [facility]atham Physician GroupComment on above:Performed By: #### BMP #### [address] Lee StreetUrine alpha 1 globulin/total protein by electrophoresis Ordered By: Brook Huddleston on 19-21-2573Lijty 1 globulin Elph (U) [Mass fraction] Urine alpha 1 globulin/total protein by electrophoresis.[facility] – JacksonAlpha 1 globulin Elph (U) [Mass fraction]3.0 %.[facility] – JacksonUrine alpha 2 globulin/total protein ratio by electrophoresis Ordered By: Brook Huddleston on 81-34-3975Jutae 2 globulin Elph (U) [Mass fraction] Urine alpha 2 globulin/total protein ratio by electrophoresis.[facility] – JacksonAlpha 2 globulin Elph (U) [Mass fraction]10.8 %.[facility] – JacksonUrine beta globulin measurement by electrophoresis (mass/volume) Ordered By: Brook Huddleston on 03-52-3785Pmrv globulin Elph (U) [Mass/Vol]Urine beta globulin measurement by electrophoresis (mass/volume).[facility] – JacksonBeta globulin Elph (U) [Mass/Vol]19.6 %.[facility] Urine protein measurement (mass/volume)Ordered By: Brook Huddleston on 09-27-2024 Protein (U) [Mass/Vol]Protein [Mass/volume] in UrineNot Estab.[facility] – JacksonProtein (U) [Mass/Vol]170.1 mg/dLNormalNot Estab.[facility] – JacksonComment on above:Performed By: #### BMP #### [facility] [address] [place] [address] USAUrine protein/creatinine ratioOrdered By: Price Crain on 55-83-8149Elowhyx/Creatinine (U) [Ratio]Urine protein/creatinine ratioHigh0-200 [facility] – JacksonVit. B12/Folate Profileon 11-69-6321Lgtlvngob (Vitamin B12) [Mass/Vol]1082 pg/cJLnlm144-356Pxy [facility] Comment on above:Performed By: #### BMP #### [facility] [address] [place] [id number] XEDHhqjus31.4 ng/mLNormal>5.9The [facility] Comment on above:Result Comment: Folate reference range: >5.9 ng/ml The WHO technical consultation on folate and vitamin b12 deficiencies has determined that folate concentrations less than 4 ng/ml are considered deficient.Performed By: #### BMP #### [facility] [address] [place] [id number] USAVitamin B12 ser/plasOrdered By: Price Crain on 09-27-2024 Cobalamin (Vitamin B12) [Mass/Vol]Vitamin B12 ser/mrfcSclx625-247NokytnayjHolzer Medical Center – JacksonVitamin D 25 Hydroxy Totalon 29-66-2927Gqwuqeh D 25 Hydroxy Total67.3 ng/wGPyoopg99-970Klf [facility] Physician GroupComment on above:Result Comment: VITAMIN D STATUS 25(OH)VITAMIN D RANGE (ng/mL) Deficient <20 Insufficient 20 to <30 Sufficient 30 to 100 Reference: Brendon Daniel, Estrella CARTER, et al. Evaluation,treatment, and prevention of vitamin D deficiency; an Endocrine Society clinical practice guideline. JCEM. 2010; 96(7):191-. PERFORMED BY: [place] [address] PATHOLOGIST DOCK SUPERINTENDENT DOMINIC FRANK M.D.Performed By: #### BMP #### [facility] [address] [place] [id number] USAVitamin D+Metabolites [Mass/volume] in Serum or Plasma Ordered By: Price Crain on 98-59-0635Riecasw D+Metabolites [Mass/Vol]Vitamin D+Metabolites [Mass/volume] in Serum or Kahlrv39-894LcwpgotymHolzer Medical Center – JacksonComment on above:VITAMIN D STATUS 25(OH)VITAMIN D RANGE (ng/mL) Deficient <20 Insufficient 20 to <99Axkhuzlrww88 to 100Reference: Brendon Daniel, Estrella CARTER, et al. Evaluation,treatment, and prevention of vitamin D deficiency; an Endocrine Society clinical practice guideline. JCEM. 2010; 96 (7):1911-.WBC Auto (Bld) [#/Vol]Ordered By: Price Crain on 89-73-3201YCM (Bld) [#/Vol]Leukocytes [#/volume] in Blood by Automated count4.1-10.5FChildren's Hospital for RehabilitationCB W Auto Differential panel (Bld)on 62-55-3406Uajnucseg (Bld) [#/Vol]0 10*3/uL0.0 - 0.2 10*3/uLNOUT HealthcareBasophils/100 WBC Manual cnt (Syn fld)0.4 %.[facility] HospitalEosinophils (Bld) [#/Vol]0.4 10*3/uL0.0 - 0.45 10*3/uLNOMS HealthcareEosinophils/100 WBC Manual cnt (Syn fld)5.3 %.[facility] HospitalErythrocyte distribution width (RBC) [Ratio]17.4 %High12.0 - 14.8 % [facility] HospitalHematocrit (Bld) [Volume fraction]30.8 %Low38.8 - 50.0 %[facility] HospitalHemoglobin (Bld) [Mass/Vol]10.3 g/dLLow13.0 - 17.0 g/dLCooper County Memorial Hospital Interpretation and review of laboratory resultsAbnormalCooper County Memorial Hospital Lymphocytes (Bld) [#/Vol]1.2 10*3/uL1.00 - 4.8 10*3/uLACADIA HEALTHCARE Healthcare Lymphocytes/100 WBC Manual cnt (Syn fld)18.4 %.[facility]Paul Health CenterH (RBC) [Entitic mass]35.1 pg27.5 - 35.2 pgSSM DePaul Health CenterHC (RBC) [Mass/Vol]33.4 g/dL32.5 - 35.6 g/dLSSM DePaul Health CenterV (RBC) [Entitic vol]105 zWFifj27.5 - 101 fLCooper County Memorial HospitalMonocytes (Bld) [#/Vol]0.4 10*3/uL0.0 - 0.8 10*3/uLACADIA [facility]ALTHCARE Healthcare Monocytes+Macrophages/100 WBC Manual cnt (Syn fld)6.1 %.[facility] Neutrophils (Bld) [#/Vol]4.7 10*3/uL1.8 - 7.7 10*3/uLNOUT Healthcare Neutrophils/100 WBC Manual cnt (Syn fld)69.8 %.[facility] Memorial HospitalNRBC0.1 /100{WBC}0 - 0.5 /100{WBC}[facility] Memorial HospitalPlatelet mean volume (Bld) [Entitic vol]8.3 fL6.6 - 10.1 fLACADIA HEALTHCARE HealthcarePlatelets (Bld) [#/Vol]182 10*3/uL150 - 450 10*3/uLNOMS HealthcareRBC LM.HPF (Urine sed) [#/Area]2.94 10*6/uLLow3.90 - 5.60 10*6/uLNOMS HealthcareWBC (Bld) [#/Vol]6.7 10*3/uL4.1 - 10.5 10*3/uLNOMS HealthcareWBC LM.HPF (Urine sed) [#/Area]6.7 10*3/uL4.1 - 10.5 10*3/uLNOMS HealthcareNOMS HealthcareComplete Blood Count Auto Diffon 56-47-5499Uumdlhmch (Bld) [#/Vol]0.0 10*3/uLNormal0.0-0.2The [facility]atham Physician GroupComment on above:Result Comment: PERFORMED BY: [place] [address] PATHOLOGIST DOCK SUPERINTENDENT DOMINIC FRANK M.D.Performed By: #### CMP, CBC #### [place] [address] USABasophils/100 WBC (Bld)0.4 %Normal.The [facility] Physician GroupComment on above:Performed By: #### CMP, CBC #### [place] [address] USAEosinophils (Bld) [#/Vol]0.4 10*3/uLNormal0.0-0.45The [facility]atham Physician GroupComment on above:Performed By: #### CMP, CBC #### [place] [address] USAEosinophils/100 WBC (Bld)5.3 %Normal.The [facility]atham Physician GroupComment on above:Performed By: #### CMP, CBC #### [place] [address] USAErythrocyte distribution width (RBC) [Ratio]17.4 %High 12.0-14.8The [facility]atham Physician GroupComment on above:Performed By: #### CMP, CBC #### [place] [address] USAHematocrit (Bld) [Volume fraction]30.8 %Low38.8-50.0The [facility]atham Physician GroupComment on above:Performed By: #### CMP, CBC #### [place] [address] USAHemoglobin (Bld) [Mass/Vol]10.3 g/dLLow13.0-17.0The [facility] Physician GroupComment on above:Performed By: #### CMP, CBC #### [place] [address] USALymphocytes (Bld) [#/Vol]1.2 10*3/uLNormal1.00-4.8The [facility] Physician GroupComment on above:Performed By: #### CMP, CBC #### [place] [address] USALymphocytes/100 WBC (Bld)18.4 %Normal.The [facility] Physician GroupComment on above:Performed By: #### CMP, CBC #### [place] [address] USAMCH (RBC) [Entitic mass]35.1 jaQybpzm35.5-35.2The [facility] Physician GroupComment on above:Performed By: #### CMP, CBC #### [place] [address] USAMCV (RBC) [Entitic vol]105.0 rXDfcu97.5-101The [facility] Physician GroupComment on above:Performed By: #### CMP, CBC #### [place] [address] USAMean Corpuscular HGB Conc33.4 g/sPQicscq79.5-35.6The [facility] Physician GroupComment on above:Performed By: #### CMP, CBC #### [place] [address] USAMonocytes (Bld) [#/Vol]0.4 10*3/uLNormal0.0-0.8The [facility] Physician GroupComment on above:Performed By: #### CMP, CBC #### [facility] [address] [place] [address] USAMonocytes/100 WBC (Bld)6.1 %Normal.The [facility] Physician GroupComment on above:Performed By: #### CMP, CBC #### [facility] [address] [place] [address] USANeutrophils (Bld) [#/Vol]4.7 10*3/uLNormal1.8-7.7The [facility] Physician GroupComment on above:Performed By: #### CMP, CBC #### [facility] [address] [place] [address] USANeutrophils/100 WBC (Bld)69.8 %Normal.The [facility] Physician GroupComment on above:Performed By: #### CMP, CBC #### [facility] [address] [place] [address] USANRBC%0.1 /100{WBC}Normal0-0.5The [facility] Comment on above:Performed By: #### CMP, CBC #### [facility] [address] [place] [address] USAPlatelet mean volume (Bld) [Entitic vol]8.3 fLNormal 6.6-10.1The [facility] Physician GroupComment on above:Performed By: #### CMP, CBC #### [facility] [address] [place] [address] USAPlatelets (Bld) [#/Vol]182 10*3/lIYksvza684-218Iga [facility] Physician GroupComment on above:Performed By: #### CMP, CBC #### [facility] [address] [place] [address] USARBC (Bld) [#/Vol]2.94 10*6/uLLow3.90-5.60The [facility] Physician GroupComment on above:Performed By: #### CMP, CBC #### [facility] [address] [place] [address] USAWBC (Bld) [#/Vol]6.7 10*3/uLNormal4.1-10.5The [facility] Physician GroupComment on above:Performed By: #### CMP, CBC #### [facility] [address] [place] [id number] USAXR bone surveyon 80-32-9846WS bone surveyFIRELANDS REGIONAL [facility] [address] [place] [address] [place] [address] XRay Report Signed Patient: P[place]y Mills MR#: [id number] : 1945 Acct:[id number] Age/Sex: 79 / M ADM Date: 09/21/24 Loc: Room: Type: [facility] Attending Dr: Brook Huddleston MD Copies to: Brook Huddleston MD Ordering Provider: Brook Huddleston MD Date of Service: 09/21/24 XR/XR bone survey: C90.00 - Multiple myeloma not having achieved remission Bone survey: Reason for exam: Multiple myeloma. COMPARISON: Bone survey 09/28/2023. FINDINGS: 2 views of the skull demonstrate no suspicious lucent lesions. 2 views of the cervical spine demonstrate spondylosis without vertebral body height loss or lucent lesions. 2 views of the thoracic spine demonstrates degenerative changes without lucent lesions are significant vertebral body height loss. 2 views of the lumbar spine demonstrates degenerative changes without significant vertebral body height loss or lucent lesions. Bilateral double-J ureteral stents are in place with a 3 mm calculus involving the left kidney and mid left ureter. Single views of the chest and abdomen demonstrate no lucent lesions involving the visualized clavicles or rib cage. Single view the pelvis demonstrate degenerative change without lucent lesions. Single views of the lower extremities demonstrate no lucent lesions. Single views of the upper extremities demonstrate no lucent lesions. XR/XR bone survey Impression: No lucent lesions are identified to suggest myelomatous involvement. Double-J ureteral stents are identified with 3 mm calcified involving the left kidney and mid left ureter. Impression dictated by: Keenan Mir Jr., D.O.09/21/2024 3:48 PM Dictation Location: [place] [address] Transcribed By: [facility] 09/21/24 1548 Dictated By: Keenan Mir Jr, DO 09/21/24 1543 Signed By: 09/21/[address] [place] [address] Physician Group Urineon [id number] identified Cx Nom (U)Microbiology PROCEDURE: Urine Culture [R1] SOURCE: U Cath BODY SITE: COLLECTED DATE/TIME: 09/08/2024 15:39 EST RECEIVED DATE/TIME: 09/09/2024 17:24 EST START DATE/TIME: 09/09/2024 17:24 EST FREE TEXT SOURCE: Nati MEJIA, DERMATOLOGY NURSE-C, Nati MEJIA, DERMATOLOGY NURSE-C, Makayla X Makayla X FINAL REPORTS Final Report [] Verified Date/Time: 09/12/2024 11:29 EST 25,000 cfu/ml Staphylococcus aureus 5,000 cfu/ml Enterococcus faecalis SUSCEPTIBILITY RESULTS LEGEND: S=Susceptible, N/R=Not Reported, Blank=Data not available, [...] Locations R1: This test was performed at: [facility], [address] [place] [address], [address] , , FkoqbhWgtxboEast Liverpool City HospitalComment on above:Performed By: #### [id number] #### [facility] [address] [place] [address]Glmvzocudr Visit Summaryon 19-35-4734Xekjiapdsn Visit Summary Ambulatory Visit Summary PATSY MILLS :1945 Visit Date:09/08/2024 Ambulatory Visit Instructions Your Diagnosis Recurrent UTI Noncompliant bladder Your Care Team Attending Physician - CARLEY Damian APRN, Makayla Soriano Primary Care Physician - HELEN OCHOA MD This Is Your Medications List aspirin (aspirin 81 mg Chew Tab) atorvastatin (atorvastatin 20 mg Tab) bifidobacterium-lactobacillus (Probiotic + Colostrum) cholecalciferol (Vitamin D3 2000 [...] Cystoscopic removal of ureteric stent (08/20/2012), Cystoscopic ure teroneocystostomy with insertion 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 What to do next Scheduled Follow-Up Appointments Thursday 12:50 PM EST With: CARLEY Damian APRN, [place] X Where: [facility] [address] [place] [address]- Medications What How Much When Instructions Unchanged aspirin (aspirin 81 mg Chew Tab) Chewed Every day Unchanged atorvastatin (atorvastatin 20 mg Tab) 1 Tablets By Mouth Every day Unchanged bifidobacterium-lactobacillus (Probiotic + Colostrum) By Mouth Every day [...] 2 times a day take 1 cap morningof cath change and 12hrs after Unchanged oxybutynin [...] you for choosing us for your care. [facility] HospitalUrology Office/Clinic Noteon 69-98-5328Nfonsoh Office/Clinic NoteUrology Office/Clinic Note HPI Staff 3 wk cath change. History of Present Illness I have reviewed and verified the staff HPI to be accurate for this encounter. Portions of this record may have been created with voice recognition artificial intelligence software, specifically [employer], [employer] and or [employer]. Substitutions may have occurred due to the [...] E&M of Est. Patient Low 20-29 Min 89669 Urine Culture 2. 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 Patient Low 20-29 Min 30895 Orders: ciprofloxacin, 500 mg = 1 tab(s), Oral, q12hr, X 5 day(s), # 10 tab(s), Refills(s) 0, Pharmacy: [id number], 171, cm, 08/31/24 11:19:00 EST, Height/Length Dosing, 94, kg, 08/31/24 11:19:00 EST, Weight Dosing Follow-up With When Contact Information Orabich JACKIE, ANTONIO-C, Makayla X, FAM, URL Additional Instructions: 3 [...] Cystoscopic removal of ureteric stent (08/20/2012), Cystoscopic ure teroneocystostomy with insertion of ureteral stent (08/05/2012), ESWL [...] influenza virus vaccine, inactivated (more content not included)...[facility] HospitalComment on above:Result Comment: Electronically Signed By: CARLEY Damian APRN, [place] X\.angel\Date and Time Signed: 09/08/24 15:50 EST Ambulatory Visit Summaryon [id number] Visit SummaryAmbulatory Visit Summary PATSY MILLS :1945 Visit Date:08/31/2024 Ambulatory Visit Instructions Your Diagnosis Prostate cancer Noncompliant bladder Hydroureteronephrosis Ureteral stricture Incomplete bladder emptying Recurrent UTI Kidney stones BPH with urinary obstruction Family history of prostate cancer in father Your Care Team Attending Physician - Orquidea Issa MD Primary Care Physician - HELEN OCHOA MD This Is Your Medications List nitrofurantoin (Macrobid 100 mg Cap) oxybutynin (oxybutynin 10 mg ER Tab) Contact prescribing physician if questions or concerns aspirin (aspirin 81 mg Chew Tab) atorvastatin (atorvastatin 20 mg Tab) bifidobacterium-lactobacillus (Probiotic + Colostrum) cholecalciferol (Vitamin D3 2000 [...] Cystoscopic removal of ureteric stent (08/20/2012), Cystoscopic ure teroneocystostomy with insertion 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 Discharge Vitals Heart Rate (Peripheral) 82 Respiratory Rate 18 Blood Pressure 139/76 Height 171 cm Height 67 in Weight 94 kg Weight 207.234 lb BMI 32.15 What to do next Scheduled Follow-Up Appointments 2024 3:10 PM EST With: CARLEY Damian APRN, [place] X Where: [facility] [address] [place] [address]- You Need to Schedule the Following Appointments Follow Up with Diego RICKS, Orquidea Taylor, URL, URO When: Comments: Schedule BL stent exchange in 3 mos Where: Medications What How Much When Instructions Unchanged nitrofurantoin (Macrobid 100 mg Cap) 1 Capsules By Mouth 2 times a day take 1 cap morningof cath change and 12hrs after Unchanged oxybutynin (oxybutynin 10 mg ER Tab) 1 Tablets By Mouth Every day Unchanged aspirin (aspirin 81 mg Chew Tab) Chewed Every day Contact prescribing physician if questions or concerns Unchanged atorvastatin (atorvastatin 20 mg Tab) 1 Tablets By Mouth Every day Contact prescribing physician if questions or concerns Unchanged bifidobacterium-lactobacillus (Probiotic + Colostrum) By Mouth Every day [...] infection, or are t (more content not included)...[facility] HospitalUrology Office/Clinic Noteon 56-00-0186Azvthez Office/Clinic NoteUrology Office/Clinic Note Chief Complaint Follow Up to UTI & ER visit HPI Staff 3 month f/u. Previous dx: prostate cancer (active surveillance), noncompliant bladder, OAB, hydroureteronephrosis, ureteral stricture, incomplete bladder emptying, recurrent UTI, kidney stones, BPH with urinary obstruction, fam hx of prostate cancer in father. [facility] ER visit 07/20/24 due to not [...] upon admission so pt was transferred to [facility]. S/p Cysto with bilateral stent exchange, SP catheter exchange, ureteroscopy/R RPG 07/28/[address] Franklyn Manley at [facility]. It was discussed after the [...] is currently scheduled for stent exchange w/Dr Issa next month. Needs to be rescheduled due to just having stents exchanged. Pt states the stent size was changed this last time, larger. History of Present Illness Tests reviewed: outside records including op note, labs, notes I have reviewed the previous health record information and history for this patient from andexternal providers I have reviewed and verified the [...] recommendations of SP tube, stent, definitive care whichis more invasive (cystectomy). Hx of multiple myeloma [...] adenocarcinoma. Selene 7 (3+4), GG2. Only 6-10% ofGleason 4 present. 7 of 78 prostate chips involved. No adverse pathology. Decipher testing 08/27/22 - High genomic risk. Not ideal surgical candidate (prostatectomy) due to age, comorbidities. MRI prostate 11/11/22 [facility] - Prostate volume 14 cc. Post intervention changes w/o definitive MRI evidence of prostate malignancy. Lesion seen involving the R ischial tuberosity measuring 1 cm. A bonymetastatic lesion cannot be excluded (recent bone survey [...] R RGP, stent exchange, (more content not included)...[facility] HospitalComment on above:Result Comment: Electronically Signed By: Diego RICKS, Orquidea Taylor\.br\Date and Time Signed: 08/31/24 15:26EST\.br\Electronically Co-Signed By: Makayla Lara\.br\Date and Time Co-Signed: 08/31/24 12:30 ESTCB W Auto Differential panel (Bld)on [id number] (Bld) [#/Vol]0.1 10*3/uL0.0 - 0.2 10*3/uLNOMS HealthcareBasophils/100 WBC Manual cnt (Syn fld)0.9 %.NOMS HealthcareEosinophils (Bld) [#/Vol]0.5 10*3/uLHigh0.0 - 0.45 10*3/uLNOMS HealthcareEosinophils/100 WBC Manual cnt (Syn fld)6.2 %.[facility] Erythrocyte distribution width (RBC) [Ratio]17.6 %High12.0 - 14.8 %NOMS HealthcareHematocrit (Bld) [Volume fraction]31.2 %Low38.8 - 50.0 %NOMS HealthcareHemoglobin (Bld) [Mass/Vol]10.4 g/dLLow13.0 - 17.0 g/dLCooper County Memorial Hospital Interpretation and review of laboratory resultsAbnormalCooper County Memorial Hospital Lymphocytes (Bld) [#/Vol]1.2 10*3/uL1.00 - 4.8 10*3/uLNOMS Healthcare Lymphocytes/100 WBC Manual cnt (Syn fld)16.8 %.[facility] CenterH (RBC) [Entitic mass]34.8 pg27.5 - 35.2 pgSSM DePaul Health CenterHC (RBC) [Mass/Vol]33.3 g/dL32.5 - 35.6 g/dLSSM DePaul Health CenterV (RBC) [Entitic vol]104.6 iBSevl96.5 - 101 fLCooper County Memorial HospitalMonocytes (Bld) [#/Vol]0.4 10*3/uL0.0 - 0.8 10*3/uLNOThe Rehabilitation Institute Monocytes+Macrophages/100 WBC Manual cnt (Syn fld)6 %.[facility] Memorial HospitalNeutrophils (Bld) [#/Vol]5.2 10*3/uL1.8 - 7.7 10*3/uLNOThe Rehabilitation InstituteNeutrophils/100 WBC Manual cnt (Syn fld)70.1 %.[facility] HealthcareNRBC0.1 /100{WBC}0 - 0.5 /100{WBC}[facility] HealthcarePlatelet mean volume (Bld) [Entitic vol]8 fL6.6 - 10.1 fLACADIA HEALTHCARE HealthcarePlatelets (Bld) [#/Vol]199 10*3/uL150 - 450 10*3/uLCooper County Memorial HospitalRBC LM.HPF (Urine sed) [#/Area]2.98 10*6/uLLow3.90 - 5.60 10*6/uLNOMS HealthcareWBC (Bld) [#/Vol]7.4 10*3/uL4.1 - 10.5 10*3/uLNOThe Rehabilitation InstituteWBC LM.HPF (Urine sed) [#/Area]7.4 10*3/uL4.1 - 10.5 10*3/uLNOMS [facility] HealthcareComplete Blood Count Auto Diffon [id number] (Bld) [#/Vol]0.1 10*3/uLNormal 0.0-0.2The [facility] Physician GroupComment on above:Result Comment: PERFORMED BY: [place] [address] PATHOLOGIST DOCK SUPERINTENDENT DOMINIC FRANK M.D.Performed By: #### CMP, CBC #### [place] [address] USABasophils/100 WBC (Bld)0.9 %Normal.The [facility] Physician GroupComment on above:Performed By: #### CMP, CBC #### [place] [address] USAEosinophils (Bld) [#/Vol]0.5 10*3/uLHigh0.0-0.45The [facility] Physician GroupComment on above:Performed By: #### CMP, CBC #### [place] [address] USAEosinophils/100 WBC (Bld)6.2 %Normal.The [facility]atham Physician GroupComment on above:Performed By: #### CMP, CBC #### [place] [address] USAErythrocyte distribution width (RBC) [Ratio]17.6 %High 12.0-14.8The [facility] Physician GroupComment on above:Performed By: #### CMP, CBC #### [place] [address] USAHematocrit (Bld) [Volume fraction]31.2 %Low38.8-50.0The [facility]atham Physician GroupComment on above:Performed By: #### CMP, CBC #### [place] [address] USAHemoglobin (Bld) [Mass/Vol]10.4 g/dLLow13.0-17.0The [facility] Physician GroupComment on above:Performed By: #### CMP, CBC #### [place] [address] USALymphocytes (Bld) [#/Vol]1.2 10*3/uLNormal1.00-4.8The [facility] Physician GroupComment on above:Performed By: #### CMP, CBC #### [facility] [address] [place] [address] USALymphocytes/100 WBC (Bld)16.8 %Normal.The [facility]atham Physician GroupComment on above:Performed By: #### CMP, CBC #### [facility] [address]H (RBC) [Entitic mass]34.8 dfSggbpm89.5-35.2The [facility]atham Physician GroupComment on above:Performed By: #### CMP, CBC #### [place] [address] USAMCV (RBC) [Entitic vol]104.6 mIBxwg05.5-101The [facility]atham Physician GroupComment on above:Performed By: #### CMP, CBC #### [place] [address] USAMean Corpuscular HGB Conc33.3 g/xIFbeqot52.5-35.6The [facility]atham Physician GroupComment on above:Performed By: #### CMP, CBC #### [place] [address] USAMonocytes (Bld) [#/Vol]0.4 10*3/uLNormal0.0-0.8The [facility]atham Physician GroupComment on above:Performed By: #### CMP, CBC #### [facility] [address] [place] [address] USAMonocytes/100 WBC (Bld)6.0 %Normal.The [facility] Physician GroupComment on above:Performed By: #### CMP, CBC #### [place] [address] USANeutrophils (Bld) [#/Vol]5.2 10*3/uLNormal1.8-7.7The [facility] Physician GroupComment on above:Performed By: #### CMP, CBC #### [place] [address] USANeutrophils/100 WBC (Bld)70.1 %Normal.The [facility] Physician GroupComment on above:Performed By: #### CMP, CBC #### [facility] [address] [place] [address] USANRBC%0.1 /100{WBC}Normal0-0.5The [facility] Comment on above:Performed By: #### CMP, CBC #### [place] [address] USAPlatelet mean volume (Bld) [Entitic vol]8.0 fLNormal 6.6-10.1The [facility] Physician GroupComment on above:Performed By: #### CMP, CBC #### [place] [address] USAPlatelets (Bld) [#/Vol]199 10*3/pTFoakyn331-809Aat [facility] Physician GroupComment on above:Performed By: #### CMP, CBC #### [place] [address] USARBC (Bld) [#/Vol]2.98 10*6/uLLow3.90-5.60The [facility] Physician GroupComment on above:Performed By: #### CMP, CBC #### [place] [address] USAWBC (Bld) [#/Vol]7.4 10*3/uLNormal4.1-10.5The [facility] Physician GroupComment on above:Performed By: #### CMP, CBC #### [place] [address] USAC Urineon [id number] identified Cx Nom (U) Microbiology PROCEDURE: Urine Culture [R1] SOURCE: U Cath BODY SITE: COLLECTED DATE/TIME: 08/16/2024 12:29 EST RECEIVED DATE/TIME: 08/16/2024 16:06 EST START DATE/TIME: 08/16/2024 16:06 EST FREE TEXT SOURCE: cath Orzech MEAT CUTTING BLOCK REPAIRER, DERMATOLOGY NURSE-C, Orzech MEAT CUTTING BLOCK REPAIRER, DERMATOLOGY NURSE-C, Makayla X Makayla X FINAL REPORTS Final Report [] Verified Date/Time: 08/19/2024 11:00 EST 30,000 cfu/ml Enterococcus faecalis 30,000 cfu/ml Jessica albicans Presumptive SUSCEPTIBILITY RESULTS LEGEND: S=Susceptible, N/R=Not Reported, Blank=Data not available, [...] Locations R1: This test was performed at: [facility], [address] [place] [address], [address]- , , JbjmwsKqalcpEast Liverpool City HospitalComment on above:Performed By: #### [id number] #### [facility] [address] [place] [address]Tinmeqk Office/Clinic Noteon [id number] Office/Clinic NoteUrology Office/Clinic Note HPI Staff fatigue, chills, body aches started today History of Present Illness I have reviewed and verified the staff HPI to be accurate for this encounter. Portions of this record may have been created with voice recognition artificial intelligence software, specifically [employer], [employer] and or [employer]. Substitutions may have occurred due to the inherent limitations of voice recognition and artificial intelligence software. Physical Exam General: Well developed, well nourished, in no acute distress. Assessment/Plan KML pt 1. UTI (urinary tract infection) (N39.0: Urinary tract infection, site not specified) hx of frequent UTIs, sepsis does take macrobid prophylactically around time of SPT exchanges recent inpatient stay at [facility] d/t urosepsis has been doing [...] discuss next stent exchange and recs from [facility] doc 2. Noncompliant bladder (N31.9: [...] vaccine 04/29/2021 Recorded haemophilu (more content not included)...[facility] Comment on above:Result Comment: Electronically Signed By: CARLEY Damian APRN, Makayla Soriano\.angel\Date and Time Signed: 08/18/24 20:01 ESTBasic Metabolic Panelon 99-51-3954Nukjs gap [Moles/Vol]13.4 mmol/LNormal6.0-15.0The [facility] Physician GroupComment on above:Performed By: #### GLULS #### Point of Care testing ,Calcium [Mass/Vol]8.1 mg/dLLow8.6-10.3The [facility] Physician GroupComment on above:Performed By: #### GLULS #### Point of Care testing ,Chloride [Moles/Vol]109 mmol/EIvqg70-191Rrn [facility] Physician GroupComment on above:Performed By: #### GLULS #### Point of Care testing ,CO2 [Moles/Vol]21.6 mmol/BEtzcep44.0-31.0The [facility] Physician GroupComment on above:Performed By: #### GLULS #### Point of Care testing ,Creatinine [Mass/Vol]2.43 mg/dLHigh0.70-1.30The [facility] Comment on above:Performed By: #### GLULS #### Point of Care testing ,Creatinine Clr Calc Wtxofhtn60.82NormalThSt. Luke's McCall Physician GroupComment on above:Result Comment: PERFORMED BY: [place] [address] [place] [address] PATHOLOGIST DOCK SUPERINTENDENT DOMINIC FRANK M.D.Performed By: #### GLULS #### Point of Care testing ,Estimated GFR26.380 mL/MinNormalThe [facility] Physician [facility] Of MeridianComment on above: Performed By: #### GLULS #### Point of Care testing ,Glucose [Mass/Vol]139 mg/yWLstk24-307Eai [facility] Hospital Of MeridianComment on above:Result Comment: Random Glucose Reference Range is dependent on time and content of last meal. Glucose of more than 200 mg/dL in a nonstressed, ambulatory subject supports the diagnosis of Diabetes Mellitus. ADA recommended reference rangePerformed By: #### GLULS #### Point of Care testing ,Potassium [Moles/Vol]4.0 mmol/LNormal3.5-5.1The [facility] Comment on above:Performed By: #### GLULS #### Point of Care testing ,Sodium [Moles/Vol]140 mmol/KOlazzx052-500Vfz [facility] The [facility] Of MeridianComment on above:Performed By: #### GLULS #### Point of Care testing ,Urea nitrogen [Mass/Vol]32 mg/dLHigh7-25The [facility] Physician GroupComment on above:Performed By: #### GLULS #### Point of Care testing ,CBC W Auto Differential panel (Bld)on [id number] (Bld) [#/Vol]0 10*3/uL0.0 - 0.2 10*3/uLNOMS HealthcareBasophils/100 WBC Manual cnt (Syn fld)0.4 %.[facility] HealthcareEosinophils (Bld) [#/Vol]0.3 10*3/uL0.0 - 0.45 10*3/uLNOMS HealthcareEosinophils/100 WBC Manual cnt (Syn fld)4.6 %.[facility] Erythrocyte distribution width (RBC) [Ratio]17 %High12.0 - 14.8 %[facility] Hematocrit (Bld) [Volume fraction]29.2 %Low38.8 - 50.0 %[facility] Hemoglobin (Bld) [Mass/Vol]9.7 g/dLLow13.0 - 17.0 g/dLCooper County Memorial Hospital Interpretation and review of laboratory resultsAbnormGuthrie [facility] Lymphocytes (Bld) [#/Vol]0.8 10*3/uLLow1.00 - 4.8 10*3/uLNOUT Healthcare Lymphocytes/100 WBC Manual cnt (Syn fld)11.3 %.[facility] CenterH (RBC) [Entitic mass]34 pg27.5 - 35.2 pgSSM DePaul Health CenterHC (RBC) [Mass/Vol]33.1 g/dL32.5 - 35.6 g/dLSSM DePaul Health CenterV (RBC) [Entitic vol]102.8 mCXqmy33.5 - 101 fLCooper County Memorial HospitalMonocytes (Bld) [#/Vol]0.4 10*3/uL0.0 - 0.8 10*3/uLCooper County Memorial Hospital Monocytes+Macrophages/100 WBC Manual cnt (Syn fld)5.3 %.[facility] Neutrophils (Bld) [#/Vol]5.7 10*3/uL1.8 - 7.7 10*3/uLCooper County Memorial Hospital Neutrophils/100 WBC Manual cnt (Syn fld)78.4 %.[facility] HospitalNRBC0 /100{WBC}0 - 0.5 /100{WBC}[facility] HospitalPlatelet mean volume (Bld) [Entitic vol]8.2 fL6.6 - 10.1 fLCooper County Memorial HospitalPlatelets (Bld) [#/Vol]200 10*3/uL150 - 450 10*3/uLCooper County Memorial HospitalRBC LM.HPF (Urine sed) [#/Area]2.84 10*6/uLLow3.90 - 5.60 10*6/uLNOMS Galion HospitalWBC (Bld) [#/Vol]7.3 10*3/uL4.1 - 10.5 10*3/uLNOThe Rehabilitation InstituteWBC LM.HPF (Urine sed) [#/Area]7.3 10*3/uL4.1 - 10.5 10*3/uLMineral Area Regional Medical Center HealthcareComplete Blood Count Auto Diffon [id number] (Bld) [#/Vol]0.0 10*3/uLNormal0.0-0.2The [facility] Physician GroupComment on above:Result Comment: PERFORMED BY: [place] [address] PATHOLOGIST DOCK SUPERINTENDENT DOMINIC FRANK M.D.Performed By: #### BMP #### [place] [address] USABasophils/100 WBC (Bld)0.4 %Normal.The [facility] Physician GroupComment on above:Performed By: #### BMP #### [place] [address] USAEosinophils (Bld) [#/Vol]0.3 10*3/uLNormal0.0-0.45The [facility] Physician GroupComment on above:Performed By: #### BMP #### [place] [address] USAEosinophils/100 WBC (Bld)4.6 %Normal.The [facility] Physician GroupComment on above:Performed By: #### BMP #### [place] [address] USAErythrocyte distribution width (RBC) [Ratio]17.0 %High 12.0-14.8The [facility] Physician GroupComment on above:Performed By: #### BMP #### [place] [address] USAHematocrit (Bld) [Volume fraction]29.2 %Low38.8-50.0The [facility] Physician GroupComment on above:Performed By: #### BMP #### [place] [address] USAHemoglobin (Bld) [Mass/Vol]9.7 g/dLLow13.0-17.0The [facility] Physician GroupComment on above:Performed By: #### BMP #### [place] [address] USALymphocytes (Bld) [#/Vol]0.8 10*3/uLLow1.00-4.8The [facility] Physician GroupComment on above:Performed By: #### BMP #### [place] [address] USALymphocytes/100 WBC (Bld)11.3 %Normal.The [facility] Physician GroupComment on above:Performed By: #### BMP #### [address] (RBC) [Entitic mass]34.0 wvDecgpy71.5-35.2The [facility] Physician GroupComment on above:Performed By: #### BMP #### [address] (RBC) [Entitic vol]102.8 fGJbnu25.5-101The [facility] Physician GroupComment on above:Performed By: #### BMP #### [place] [address] USAMean Corpuscular HGB Conc33.1 g/vKAecznq47.5-35.6The [facility] Physician GroupComment on above:Performed By: #### BMP #### [place] [address] USAMonocytes (Bld) [#/Vol]0.4 10*3/uLNormal0.0-0.8The [facility] Physician GroupComment on above:Performed By: #### BMP #### [place] [address] USAMonocytes/100 WBC (Bld)5.3 %Normal.The [facility] Physician GroupComment on above:Performed By: #### BMP #### [place] [address] USANeutrophils (Bld) [#/Vol]5.7 10*3/uLNormal1.8-7.7The [facility] Physician GroupComment on above:Performed By: #### BMP #### [place] [address] USANeutrophils/100 WBC (Bld)78.4 %Normal.The [facility] Physician GroupComment on above:Performed By: #### BMP #### [place] [address] USANRBC%0.0 /100{WBC}Normal0-0.5The [facility] Comment on above:Performed By: #### BMP #### [place] [address] USAPlatelet mean volume (Bld) [Entitic vol]8.2 fLNormal 6.6-10.1The [facility] Physician GroupComment on above:Performed By: #### BMP #### [place] [address] USAPlatelets (Bld) [#/Vol]200 10*3/aGOesryd651-519Tft [facility] Physician GroupComment on above:Performed By: #### BMP #### [place] [address] USARBC (Bld) [#/Vol]2.84 10*6/uLLow3.90-5.60The [facility] Physician GroupComment on above:Performed By: #### BMP #### [place] [address] USAWBC (Bld) [#/Vol]7.3 10*3/uLNormal4.1-10.5The [facility] Physician GroupComment on above:Performed By: #### BMP #### [place] [address] RBM24sd 15-07-572837Vhsqg Case Management Update Multidisciplinary rounds have been completed. Barriers to Discharge: Patient is medically ready for discharge at this time. Follow up appointments added to patients AVS, and AVS completed. Patient has been instructed to obtain prescription for follow-up lab work from his primary care provider. Primary RN notified of patients discharge readiness. No further OTM needs identified at this time. [facility] will continue to follow and assist with any further discharge related needs. Diet: Dietary Orders (From admission, onward) Start Ordered 07/28/241823 Special Kitchen Request Once Comments: Egg salad sandwich with white bread, strawberry cake, grape juice 07/28/24182407/28/241818 Regular Diet Diabetic Male (carb 60g/meal) Diet effective now Comments: Per Dr Devries, pt ok to get diet order when return to 4ab and ok to order meal before kitchen closes Question Answer Comment Room Service? Yes Carbohydrate restriction: Diabetic Male (carb 60g/meal) 07/28/24 1822 Physician Expected Discharge Date: 07/30/2024 Discharge Delays: [...] Reason for OT? Answer: D/C recs 07/24/24 1838NormalUniversOhio State University Wexner Medical CenterBASIC METABOLIC PANELon 21-87-6723Ooceg gap [Moles/Vol]9 mmol/LNormal7-20UnSumma Health Wadsworth - Rittman Medical CenterComment on above:Performed By: #### [id number] ####[facility] ([facility])[address] [place], [place] [address]Fmafkjb [Mass/Vol]8.1 mg/dLLow8.6-10.3 [facility] CenterComment on above:Performed By: #### [id number] ####[facility] ([facility])[address] [place], [place] [address]Rxncgtyx [Moles/Vol]110 mmol/JYble21-193KmlmicmudjSumma Health Wadsworth - Rittman Medical CenterComment on above:Performed By: #### [id number] ####[facility] ([facility])[address] [place], [place] [address]DC2 [Moles/Vol]24 mmol/WYejwom88-55EnpcbhqavuSumma Health Wadsworth - Rittman Medical CenterComment on above:Performed By: #### [id number] ####[facility] (BEExpensify)[address] [place], [place] [address]Whzjhpbqam [Mass/Vol]2.70 mg/dLHigh 0.70-1.30UnSumma Health Wadsworth - Rittman Medical CenterComment on above:Performed By: #### [id number] ####[facility] ([facility])[address] [place] [address]EHXMPLKMKN FILTRATION RATE ML/MIN/1.73 SQ M.FEBFBVBGS37.2 mL/min/1.73m*2Low>60.0UnSumma Health Wadsworth - Rittman Medical CenterComment on above:Result Comment: The [facility]???s estimated glomerular filtration rate (eGFR) will no [...] potential consequences that do not disproportionately affect anyone group of individuals. Performed By: #### [id number] ####[facility] ([facility])[address] [place], [place] [address]Rftrsau [Mass/Vol]110 mg/dNQrle34-699UbxdkstfnmSumma Health Wadsworth - Rittman Medical CenterComment on above:Performed By: #### [id number] ####[facility] ([facility])[address] [place], [place] [address]Trucvmtus [Moles/Vol]3.7 mmol/LNormal 3.5-5.1UnSumma Health Wadsworth - Rittman Medical CenterComment on above:Performed By: #### [id number] ####[facility] ([facility])[address] [place], [place] [address]Wxhble [Moles/Vol]139 mmol/VLgukxd786-572JgxbhlgcmdSumma Health Wadsworth - Rittman Medical CenterComment on above:Performed By: #### [id number] ####[facility] ([facility])[address] [place], [place] [address]Kogk nitrogen [Mass/Vol]30 mg/dLHigh7-25UnSumma Health Wadsworth - Rittman Medical CenterComment on above:Performed By: #### [id number] ####[facility] ([facility])[address] [place], [place] [address]GTEB NITROGEN/CREATININE (MASS RATIO) IN SER/PLAS11.1NormalUnSumma Health Wadsworth - Rittman Medical CenterComment on above: Performed By: #### [id number] ####[facility] ([facility])[address] [place], [place] [address]TED WITH AUTO DIFFERENTIALon 20-74-6382Wcdactets (Bld) [#/Vol]0.02 10*3/uLNormal0.00-0.20UnSumma Health Wadsworth - Rittman Medical CenterComment on above: Performed By: #### [id number] #### [facility] ([facility]) [address] [place], [place] [address]Tdspkxnip/100 WBC (Bld)0.2 %Normal0.0-1.0UnSumma Health Wadsworth - Rittman Medical CenterComment on above:Performed By: #### [id number] #### [facility] ([facility]) [address] [place], [place] [address]Hgccaeraadf (Bld) [#/Vol]0.26 10*3/uLNormal0.00-0.50UnSumma Health Wadsworth - Rittman Medical CenterComment on above:Performed By: #### [id number] #### [facility] ([facility]) [address] [place], [place] [address]Flqawwqjwyj/100 WBC (Bld)2.9 %Normal0.0-6.0UnSumma Health Wadsworth - Rittman Medical CenterComment on above:Performed By: #### [id number] #### [facility] ([facility]) [address] [place], [place] [address]Ktebngnuqml distribution width (RBC) [Ratio]16.6 %High11.5-15.0 [facility] CenterComment on above:Performed By: #### [id number] #### [facility] ([facility]) [address] [place], [place] [address]BDGGBYOUHGL MEAN CORPUSCULAR HEMOGLOBIN CONCENTRATION (G/DL) BY RNELABRUQ93.9 g/dLLow32.0-35.0UnSumma Health Wadsworth - Rittman Medical CenterComment on above:Performed By: #### [id number] #### [facility] [address] [place], [place] [address]Kaoyaprgta (Bld) [Volume fraction]25.4 %Low39.0-55.0UnSumma Health Wadsworth - Rittman Medical CenterComment on above:Performed By: #### [id number] #### [facility] ([facility]) [address] [place], [place] [address]Bjsxbykzsq (Bld) [Mass/Vol]8.1 g/dLLow13.0-17.0UnSumma Health Wadsworth - Rittman Medical CenterComment on above:Performed By: #### [id number] #### [facility] ([facility]) [address] [place], [place] [address]Eskckzdf granulocytes (Bld) [#/Vol]0.06 10*3/uLNormal0.00-0.20 [facility] CenterComment on above:Performed By: #### [id number] #### [facility] ([facility]) [address] [place], [place] [address]Uthaidox granulocytes/100 WBC (Bld)0.7 %Normal0.0-1.0UnSumma Health Wadsworth - Rittman Medical CenterComment on above:Performed By: #### [id number] #### [facility] ([facility]) [address] [facility] [place], [place] [address]Uxawaepgjha (Bld) [#/Vol]1.16 10*3/uLLow1.20-4.00UnSumma Health Wadsworth - Rittman Medical CenterComment on above:Performed By: #### [id number] #### [facility] ([facility]) [address] [place], [place] [address]Lajukngrmks/100 WBC (Bld)13.2 %Low20.0-45.0UnSumma Health Wadsworth - Rittman Medical CenterComment on above:Performed By: #### [id number] #### [facility] ([facility]) [address] [facility] [place], [place] [address]VVD (RBC) [Entitic mass]33.8 uhRthh32.0-33.0UnSumma Health Wadsworth - Rittman Medical CenterComment on above:Performed By: #### [id number] #### [facility] ([facility]) [address] [place], [place] [address]GPG (RBC) [Entitic vol]105.8 dVGcma94.0-98.0UnSumma Health Wadsworth - Rittman Medical CenterComment on above:Performed By: #### [id number] #### [facility] ([facility]) [address] [facility] [place], [place] [address]Kyhwddagj (Bld) [#/Vol]0.46 10*3/uLNormal0.10-1.00UnSumma Health Wadsworth - Rittman Medical CenterComment on above:Performed By: #### [id number] #### [facility] ([facility]) [address] [place], [place] [address]Abjbkmitw/100 WBC (Bld)5.2 %Normal5.0-12.0UnSumma Health Wadsworth - Rittman Medical CenterComment on above:Performed By: #### [id number] #### [facility] ([facility]) [address] [place], [place] [address]Wwjlhrejbxr (Bld) [#/Vol]6.92 10*3/uLNormal1.60-7.60UnSumma Health Wadsworth - Rittman Medical CenterComment on above:Performed By: #### [id number] #### [facility] ([facility]) [address] [facility] [place], [place] [address]Znvyhxgcvbj/100 WBC (Bld)78.5 %High40.0-72.0UnSumma Health Wadsworth - Rittman Medical CenterComment on above:Performed By: #### [id number] #### [facility] ([facility]) [address] [place], [place] [address]XHYQ (PER 100 WBCS) BY AUTOMATED COUNT0.0 %Masqto1TfirbutyvfSumma Health Wadsworth - Rittman Medical CenterComment on above:Performed By: #### [id number] #### [facility] ([facility]) [address] [facility] [place], [place] [address]IKCFRTPJD (10*3/UL) IN BLOOD AUTOMATED [id number] 10*3/uLNormal 150-400UnSumma Health Wadsworth - Rittman Medical CenterComment on above:Performed By: #### [id number] #### [facility] ([facility]) [address] [place] [address]PBM (Bld) [#/Vol]2.40 10*6/uLLow4.20-5.70UnSumma Health Wadsworth - Rittman Medical CenterComment on above:Performed By: #### [id number] #### [facility] ([facility]) [address] [place], [place] [address]VKP (Bld) [#/Vol]8.82 10*3/uLNormal4.00-10.60UnSumma Health Wadsworth - Rittman Medical CenterComment on above:Performed By: #### [id number] #### [facility] ([facility]) [address] [place] [address]AWRFIFZPEth 54-39-3200Lqmucuidx [Mass/Vol]1.7 mg/dLLow1.9-2.7 [facility] CenterComment on above:Performed By: #### [id number] #### [facility] ([facility]) [address] [facility] [place], [place] [address]CMIP GLUCOSE METER UNSOLICITED RESULTSon 63-85-1295Vwhaoha [Mass/Vol]114 mg/pNTqon77-031JmknqjbmduSumma Health Wadsworth - Rittman Medical CenterComment on above:Order Comment: Waived Testing in the ED is performed under the ED CLIA certificate #[id number].Result Comment: alanagaPerformed By: #### [id number] #### [facility] ([facility]) [address] [place] [address]xo 67-93-619854Jff patient is Moderately Stable - Low risk of patient condition [...] Adult Goal: Skin integrity remains intact Outcome: ProgressingNormalUniversOhio State University [facility]xner Medical Center30The patient is Moderately Stable - Low risk of patient condition [...] Absence of infection during hospitalization Outcome: Not ProgressingNormalUniversOhio State University Wexner Medical CenterBASIC METABOLIC PANELon 55-05-0362Uuhmi gap [Moles/Vol]10 mmol/LNormal7-20UnSumma Health Wadsworth - Rittman Medical CenterComment on above:Performed By: #### [id number] #### [facility] ([facility]) [address] [place], [place] [address]Egrhsrn [Mass/Vol]8.3 mg/dLLow8.6-10.3UnSumma Health Wadsworth - Rittman Medical CenterComment on above:Performed By: #### [id number] #### [facility] ([facility]) [address] [place], [place] [address]Uxuqksbx [Moles/Vol]111 mmol/JXwcy24-468AcyqqruagnSumma Health Wadsworth - Rittman Medical CenterComment on above:Performed By: #### [id number] #### [facility] ([facility]) [address] [place], [place] [address]QF8 [Moles/Vol]26 mmol/JWqufzl53-86MzghlihhsrSumma Health Wadsworth - Rittman Medical CenterComment on above:Performed By: #### [id number] #### [facility] ([facility]) [address] [place], [place] [address]Nlzjoaknan [Mass/Vol]3.07 mg/dLHigh0.70-1.30UnSumma Health Wadsworth - Rittman Medical CenterComment on above:Performed By: #### [id number] #### [facility] ([facility]) [address] [place] [address] [place] [address]UOAXGSHDVG FILTRATION RATE ML/MIN/1.73 SQ M.YWDLYCCKS31.9 mL/min/1.73m*2Low>60.0UnSumma Health Wadsworth - Rittman Medical CenterComment on above:Result Comment: The [facility]???s estimated glomerular filtration rate (eGFR) will no [...] potential consequences that do not disproportionately affect anyone group of individuals.Performed By: #### [id number] #### [facility] ([facility]) [address] [place] [address]Lopswlx [Mass/Vol]182 mg/vSRcyq29-867QvqljbgwbaSumma Health Wadsworth - Rittman Medical CenterComment on above:Performed By: #### [id number] #### [facility] ([facility]) [address] [place] [place] [address]Dnvsxmwlr [Moles/Vol]3.9 mmol/LNormal3.5-5.1UnSumma Health Wadsworth - Rittman Medical CenterComment on above:Performed By: #### [id number] #### [facility] ([facility]) [address] [place] [address]Inmwfk [Moles/Vol]143 mmol/SSrtohg662-058XgcituwvybSumma Health Wadsworth - Rittman Medical CenterComment on above:Performed By: #### [id number] #### [facility] ([facility]) [address] [facility] [place], [place] [address]Ezql nitrogen [Mass/Vol]36 mg/dLHigh7-25UnSumma Health Wadsworth - Rittman Medical CenterComment on above:Performed By: #### [id number] #### [facility] ([facility]) [address] [facility] [place], [place] [address]JHBF NITROGEN/CREATININE (MASS RATIO) IN SER/PLAS11.7Normal [facility] Medical CenterComment on above:Performed By: #### [id number] #### [facility] ([facility]) [address] [place] [address]KEY WITH AUTO DIFFERENTIALon 91-80-1758Hvfceivsh (Bld) [#/Vol] 0.02 10*3/uLNormal0.00-0.20UnSumma Health Wadsworth - Rittman Medical CenterComment on above: Performed By: #### [id number] ####[facility] ([facility])[address] [place] [address]Gysuokeue/100 WBC (Bld)0.2 %Normal0.0-1.0UnSumma Health Wadsworth - Rittman Medical CenterComment on above:Performed By: #### [id number] ####[facility] ([facility])[address] [place], [place] [address]Fhieqsetjin (Bld) [#/Vol]0.19 10*3/uL Normal0.00-0.50UnSumma Health Wadsworth - Rittman Medical CenterComment on above:Performed By: #### [id number] ####[facility] ([facility])[address] [place] [address] Eosinophils/100 WBC (Bld)1.7 %Normal0.0-6.0UnSumma Health Wadsworth - [facility] Medical Center Comment on above:Performed By: #### [id number] ####[facility] ([facility])[address] [place] [address]Fmvhgdcbwzw distribution width (RBC) [Ratio]16.8 % High11.5-15.0UnSumma Health Wadsworth - Rittman Medical CenterComment on above:Performed By: #### [id number] ####[facility] ([facility])[address] [place] [address] ERYTHROCYTE MEAN CORPUSCULAR HEMOGLOBIN CONCENTRATION (G/DL) BY WAURQWNTC96.3 g/wQYiugnl13.0-35.0UnSumma Health Wadsworth - Rittman Medical CenterComment on above:Performed By: #### [id number] ####[facility] ([facility])[address] [facility] [place] [address]Dgagnothqf (Bld) [Volume fraction]25.8 %Low39.0-55.0UnSumma Health Wadsworth - Rittman Medical CenterComment on above:Performed By: #### [id number] ####[facility] ([facility])[address] [place] [address]Mklgjyanzx (Bld) [Mass/Vol]8.6 g/dLLow 13.0-17.0UnSumma Health Wadsworth - Rittman Medical CenterComment on above:Performed By: #### [id number] ####[facility] ([facility])[address] [place], [place] [address]Rxbelnwh granulocytes (Bld) [#/Vol]0.08 10*3/uLNormal0.00-0.20UnSumma Health Wadsworth - Rittman Medical CenterComment on above:Performed By: #### [id number] ####[facility] ([facility])[address] [place] [address]Vhdcwyut granulocytes/100 WBC (Bld)0.7 %Normal0.0-1.0UnSumma Health Wadsworth - Rittman Medical CenterComment on above:Performed By: #### [id number] ####[facility] ([facility])[address] [place] [address] Lymphocytes (Bld) [#/Vol]0.74 10*3/uLLow1.20-4.00UnSumma Health Wadsworth - Rittman Medical CenterComment on above:Performed By: #### [id number] ####[facility] ([facility])[address] [place], [place] [address]Imebswjnmpp/100 WBC (Bld)6.4 %Low 20.0-45.0UnSumma Health Wadsworth - Rittman Medical CenterComment on above:Performed By: #### [id number] ####[facility] ([facility])[address] [place], [place] [address]ELX (RBC) [Entitic mass]34.4 yjBjnz38.0-33.0UnSumma Health [facility] Comment on above:Performed By: #### [id number] ####[facility] ([facility])[address] [place], [place] [address]ETH (RBC) [Entitic vol]103.2 lTTaou78.0-98.0 [facility] CenterComment on above:Performed By: #### [id number] ####[facility] ([facility])[address] [place] [address]Dfoxvlsqg (Bld) [#/Vol]0.54 10*3/uLNormal0.10-1.00UnSumma Health Wadsworth - Rittman Medical CenterComment on above:Performed By: #### [id number] ####[facility] [place] [address]Fcfgfpjss/100 WBC (Bld)4.7 %Low5.0-12.0UnSumma Health Wadsworth - Rittman Medical CenterComment on above:Performed By: #### [id number] ####[facility] ([facility])[address] [place], [place] [address]Rkhyngfyjse (Bld) [#/Vol]10.01 10*3/uL High1.60-7.60UnSumma Health Wadsworth - Rittman Medical CenterComment on above:Performed By: #### [id number] ####[facility] ([facility])[address] [place] [address] Neutrophils/100 WBC (Bld)87.0 %High40.0-72.0UnSumma Health [facility] Comment on above:Performed By: #### [id number] ####[facility] ([facility])[address] [place], [place] [address]VMQB (PER 100 WBCS) BY AUTOMATED COUNT0.0 %Normal0 [facility] CenterComment on above:Performed By: #### [id number] ####[facility] ([facility])[address] [place], [place] [address]FWNYNWEWU (10*3/UL) IN BLOOD AUTOMATED [id number] 10*3/mTJkajng576-219PgpriareefSumma Health Wadsworth - Rittman Medical CenterComment on above:Performed By: #### [id number] ####[facility] ([facility])[address] [place] [address]DRM (Bld) [#/Vol]2.50 10*6/uLLow 4.20-5.70UnSumma Health Wadsworth - Rittman Medical CenterComment on above:Performed By: #### [id number] ####[facility] ([facility])[address] [place] [address]YGW (Bld) [#/Vol]11.50 10*3/uLHigh4.00-10.60UnSum[facility] Health [facility] Comment on above:Performed By: #### [id number] ####[facility] ([facility])[address] [place] [address]TAMGWDJIRoi 13-09-6962Nujabrzuf [Mass/Vol]1.9 mg/dL Normal1.9-2.7UnSumma Health Wadsworth - Rittman Medical CenterComment on above:Performed By: #### [id number] ####[facility] ([facility])[address] [place] [address]URGJ GLUCOSE METER UNSOLICITED RESULTSon 59-86-6203Qkfoxtr [Mass/Vol]123 mg/dLHigh 70-105UnSumma Health Wadsworth - Rittman Medical CenterComment on above:Order Comment: Waived Testing in the ED is performed under the ED CLIA certificate #[id number].Result Comment: [id number] By: #### [id number] #### [facility] ([facility]) [address] [place] [address]Yatnwnl [Mass/Vol]314 mg/fGIxit27-350LfmcratczqSumma Health Wadsworth - Rittman Medical CenterComment on above:Order Comment: Waived Testing in the ED is performed under the ED CLIA certificate #[id number].Result Comment: Performed By: #### [id number] ####[facility] ([facility])[address] [place] [address]Yioagfd [Mass/Vol]349 mg/tUTpeg06-128PqypnybtetSumma Health Wadsworth - Rittman Medical CenterComment on above:Order Comment: Waived Testing in the ED is performed under the ED CLIA certificate #[id number].Result Comment: [email or web address] Performed By: #### [id number] ####[facility] ([facility])[address] [place], [place] [address]Awnhcoy [Mass/Vol]150 mg/dXOxom35-890GwzocdoepsSumma Health Wadsworth - Rittman Medical CenterComment on above:Order Comment: Waived Testing in the ED is performed under the ED CLIA certificate #[id number].Result Comment: [email or web address] Performed By: #### [id number] #### [facility] ([facility]) [address] [place], [place] [address]Pswmfgo [Mass/Vol]156 mg/nNCber53-484VrrzllxmnbSumma Health Wadsworth - Rittman Medical CenterComment on above:Order Comment: Waived Testing in the ED is performed under the ED CLIA certificate #[id number].Result Comment: [email or web address] Performed By: #### [id number] ####[facility] ([facility])[address] [place], [place] [address]9tr [id number] patient is Moderately Stable - Low risk of patient condition declining or worsening The patient's goals for the shift include safety, comfort The clinical goals for the shift include VSS,safety, comfortNormalUniversOhio State University Wexner Medical CenterAnesthesiaon [id number] [place] 1945 [facility] 07/28/2024 [address]-ZZGCDHRENALDO [facility] No family history on fileNormalUniversOhio State University Wexner Medical CenterBASIC METABOLIC PANELon 71-60-3372Sqxcl gap [Moles/Vol]9 mmol/LNormal7-20UnSumma Health Wadsworth - Ritt[facility] Medical CenterComment on above:Performed By: #### [id number] ####[facility] ([facility])[address] [place], [place] [address]Skncquo [Mass/Vol]7.9 mg/dLLow8.6-10.3UnSumma Health Wadsworth - Rittman Medical CenterComment on above:Performed By: #### [id number] ####[facility] ([facility])[address] [place] [address] Chloride [Moles/Vol]109 mmol/XUjuj83-421KbijsgngkcSumma Health Wadsworth - R[facility] Medical Center Comment on above:Performed By: #### [id number] ####[facility] ([facility])[address] [place] [address]MS6 [Moles/Vol]26 mmol/LGlwobw78-23MetvtmfooqSumma Health Wadsworth - Rittman Medical CenterComment on above:Performed By: #### [id number] ####[facility] ([facility])[address] [place] [address]Jzxnzvjetr [Mass/Vol]3.89 mg/dL High0.70-1.30UnSumma Health Wadsworth - Rittman Medical CenterComment on above:Performed By: #### [id number] ####[facility] ([facility])[address] [place] [address] GLOMERULAR FILTRATION RATE ML/MIN/1.73 SQ M.FVQNXIGSC44.0 mL/min/1.73m*2Low>60.0 [facility] CenterComment on above:Result Comment: The [facility]???s estimated glomerular filtration rate (eG FR) will no longer include consideration of race [...] potential consequences that do not disproportionately affect anyone group of individuals. Performed By: #### [id number] ####[facility] ([facility])[address] [place] [address]Ztbdcgh [Mass/Vol]163 mg/wFSzex07-372ProvfmixxnSumma Health Wadsworth - Rittman Medical CenterComment on above:Performed By: #### [id number] ####[facility] ([facility])[address] [place] [address]Dgijstbus [Moles/Vol]4.2 mmol/LNormal 3.5-5.1UnSumma Health Wadsworth - Rittman Medical CenterComment on above:Performed By: #### [id number] ####[facility] ([facility])[address] [place] [address]Ivkprh [Moles/Vol]140 mmol/YNepwry777-717XbttxszpfvSumma Health Wadsworth - Rittman Medical CenterComment on above:Performed By: #### [id number] ####[facility] ([facility])[address] [place] [address]Gjus nitrogen [Mass/Vol]46 mg/dLHigh7-25UnSumma Health Wad[facility] - [facility]itt[facility] Medical CenterComment on above:Performed By: #### [id number] ####[facility] ([facility])[address] [place] [address]NPTR NITROGEN/CREATININE (MASS RATIO) IN SER/PLAS11.8NormalUniversOhio State University Wexner Medical CenterComment on above: Performed By: #### [id number] ####[facility] ([facility])[address] [place] [address]YHL WITH AUTO DIFFERENTIALon 25-46-3005Qlztaidwkcb distribution width (RBC) [Ratio]17.2 %High11.5-15.0UnSumma Health Wadsworth - Rittman Medical CenterComment on above:Performed By: #### [id number] #### [facility] ([facility]) [address] [place], [place] [address]PEZLIWNMEJX MEAN CORPUSCULAR HEMOGLOBIN CONCENTRATION (G/DL) BY DQQBITBHB48.9 g/aDAvngau28.0-35.0UnSumma Health Wadsworth - Rittman Medical CenterComment on above:Performed By: #### [id number] #### [facility] ([facility]) [address] [place], [place] [address]Zgbjkllwvh (Bld) [Volume fraction]25.8 %Low39.0-55.0UnSumma Health Wadsworth - Rittman Medical CenterComment on above:Performed By: #### [id number] #### [facility] ([facility]) [address] [place], [place] [address]Mgwbdwzvcg (Bld) [Mass/Vol]8.5 g/dLLow13.0-17.0UnSumma Health Wadsworth - Rittman Medical CenterComment on above:Performed By: #### [id number] #### [facility] ([facility]) [address] [place], [place] [address]QCW (RBC) [Entitic mass]34.7 zhMqaa39.0-33.0UnSumma Health Wadsworth - Rittman Medical CenterComment on above:Performed By: #### [id number] #### [facility] ([facility]) [address] [place] [address]JXZ (RBC) [Entitic vol]105.3 tJHpih85.0-98.0UnSumma Health Wadsworth - Rittman Medical CenterComment on above:Performed By: #### [id number] #### [facility] ([facility]) [address] [place] [address]LCTG (PER 100 WBCS) BY AUTOMATED COUNT0.0 %Aqurln4UtvcaegftySumma Health Wadsworth - Rittman Medical CenterComment on above:Performed By: #### [id number] #### [facility] ([facility]) [address] [place] [address]OTPIVJOUX (10*3/UL) IN BLOOD AUTOMATED [id number] 10*3/uLNormal 150-400UnSumma Health Wadsworth - Rittman Medical CenterComment on above:Performed By: #### [id number] #### [facility] ([facility]) [address] [place] [address]HNT (Bld) [#/Vol]2.45 10*6/uLLow4.20-5.70UnSumma Health Wadsworth - Rittman Medical CenterComment on above:Performed By: #### [id number] #### [facility] ([facility]) [address] [place] [address]JQX (Bld) [#/Vol]6.67 10*3/uLNormal4.00-10.60UnSumma Health Wadsworth - Rittman Medical CenterComment on above:Performed By: #### [id number] #### [facility] ([facility]) [address] [place] [address]YLGWBMDXJkr 02-75-4219Lrmoikhbh [Mass/Vol]2.1 mg/dLNormal1.9-2.7 [facility] CenterComment on above:Performed By: #### [id number] ####[facility] ([facility])[address] [place] [address]JYEZYGfb 42-57-0721WWCOBTOFIVFKZYLSXWOJFWL, WITH BILATERAL STENT EXCHANGE ; SUPRAPUBIC CATHETER EXCHANGE (B), URETEROSCOPY (B) Operative Note Date: 07/28/2024 Location: [facility] OR Name: [place], : 1945, Diagnosis Pre-op Diagnosis * Acute kidney injury superimposed on CKD (CMS/HCC) [N17.9, N18.9] * Pyelonephritis [N12] Post-op Diagnosis * Acute kidney injury superimposed on CKD (CMS/HCC) [N17.9, N18.9] * Pyelonephritis [N12] Procedures * CYSTOURETEROSCOPY, WITH BILATERAL STENT EXCHANGE ; SUPRAPUBIC CATHETER EXCHANGE * URETEROSCOPY retrograde pyelogram on the right side Surgeons Primary: Franklyn Manley MD Resident - Assisting: Chad Munoz MD; [...] Implants Type Name Action Serial No. Stent STENT,URETERAL,SOFT,TRIA,7X26 - [id number] Implanted Stent STENT,URETERAL,SOFT,TRIA,7X26 - [id number] Implanted Staff: [employer] Automation Engineer: Taryn Brooks RN Scrub Person: Harriett Ortiz CST Indications: [place] is an 79 y.o. male who is [...] retrograde pyelogram. We inje (more content not included)...NormalUnSumma Health Wadsworth - Rittman Medical CenterPOCT GLUCOSE METER UNSOLICITED RESULTSon 48-58-5988Tjxkmam [Mass/Vol]196 mg/hKJdoz27-312ZyolutxwhaSumma Health Wadsworth - Rittman Medical CenterComment on above:Order Comment: Waived Testing in the ED is performed under the ED CLIA certificate #[id number].Result Comment: [id number] By: #### [id number] #### [facility] ([facility]) [address] [facility] [place], [place] [address]Mbltrtw [Mass/Vol]134 mg/qKEidx34-079YsoqtlhpzwSumma Health Wadsworth - Rittman Medical CenterComment on above:Order Comment: Waived Testing in the ED is performed under the ED CLIA certificate #[id number].Result Comment: alanaga Performed By: #### [id number] #### [facility] ([facility]) [address] [place], [place] [address]Dciobbx [Mass/Vol]132 mg/vEZwix01-531MfzwboitbjSumma Health Wadsworth - Rittman Medical CenterComment on above:Order Comment: Waived Testing in the ED is performed under the ED CLIA certificate #[id number].Result Comment: huga Performed By: #### [id number] #### [facility] ([facility]) [address] [place] [place], [place] [address]GJDZ MANUAL DIFFERENTIALon 79-48-0811MVWTZLYSUCRI PRESENCE IN BLOOD BY LIGHT MICROSCOPYModerateNormalUniversOhio State University [facility] Medical Center Comment on above:Performed By: #### [id number] ####[facility] ([facility])[address] [place], [place] [address]RVJRAHSKS (10*3/UL) IN BLOOD BY CALCULATION0.00 10*3/uLNormal0.00-0.20UnSumma Health Wadsworth - Rittman Medical CenterComment on above: Performed By: #### [id number] ####[facility] ([facility])[address] [place], [place] [address]BUJKYGEFC/100 LEUKOCYTES IN BLOOD BY MANUAL COUNT0 %Normal0-3UnSumma Health Wadsworth - Rittman Medical CenterComment on above:Performed By: #### [id number] ####[facility] ([facility])[address] [place] [address]OYBISSBQGQD (10*3/UL) IN BLOOD BY CALCULATION0.53 10*3/uLHigh0.00-0.50UnSum[facility] Health [facility] Comment on above:Performed By: #### [id number] ####[facility] ([facility])[address] [place] [address]OZTWSXLNNNS/100 LEUKOCYTES IN BLOOD BY MANUAL COUNT 8 %High0-6UnSumma Health W[facility] - Rittman Medical CenterComment on above:Performed By: #### [id number] ####[facility] ([facility])[address] [place] [address] LYMPHOCYTES (10*3/UL) IN BLOOD BY CALCULATION0.93 10*3/uLLow1.20-4.00UnSumma Health W[facility]sworth - Rittman Medical CenterComment on above:Performed By: #### [id number] ####[facility] ([facility])[address] [place], [place] [address]NLPUPWCGYHI/100 LEUKOCYTES IN BLOOD BY MANUAL COUNT14 %Zwu23-78SmeaxlpsdhSumma Health Wadsworth - Rittman Medical CenterComment on above:Performed By: #### [id number] ####[facility] ([facility])[address] [place] [address]JJUPPLUVW (10*3/UL) IN BLOOD BY CALCUATION0.27 10*3/uLNormal0.10-1.00UnSumma Health Wadsworth - Rittman Medical CenterComment on above:Performed By: #### [id number] ####[facility] ([facility])[address] [place], [place] [address]WXLFVXPAC/100 LEUKOCYTES IN BLOOD BY MANUAL COUNT4 %Normal 3-10UnSumma Health Wadsworth - Rittman Medical CenterComment on above:Performed By: #### [id number] ####[facility] ([facility])[address] [place], [place] [address]VJTYWMGRRZF (10*3/UL) IN BLOOD BY CALCULATION4.9 10*3/uLNormal1.6-7.6UnSumma Health Wadsworth - Rittman Medical CenterComment on above:Performed By: #### [id number] ####[facility] ([facility])[address] [place], [place] [address]ONFTWUBGZHWUUS (PRESENCE) IN BLOOD BY LIGHT MICROSCOPYFewNormalUniCleveland Clinic Lutheran HospitalComment on above: Performed By: #### [id number] ####[facility] ([facility])[address] [place], [place] [address]FPUFKPHJZBUMD IN BLOOD BY LIGHT MICROSCOPYFewNormalUniCleveland Clinic Lutheran HospitalComment on above:Performed By: #### [id number] ####[facility] ([facility])[address] [place], [place] [address]MVQEGXWICN NEUTROPHILS/100 LEUKOCYTES BY MANUAL COUNT74 %Itveqd31-62ElmwatapmpSumma Health Wadsworth - Rittman Medical CenterComment on above:Performed By: #### [id number] ####[facility] ([facility])[address] [place], [place] [address]hp 64-45-190774Xuv patient is Moderately Stable - Low risk of patient condition declining or worsening The patient's goals for the shift include rest & comfort The clinical goals for the shift include comfortNormalUniCleveland Clinic Lutheran Hospital30Daily Case Management Update Multidisciplinary rounds have been completed. Barriers [...] Reason for OT? Answer: D/C recs 07/24/24 1838NormalUniversity Delaware County HospitalBASIC METABOLIC PANELon 48-53-8654Elgia gap [Moles/Vol]11 mmol/LNormal7-20UnSumma Health Wadsworth - Rittman Medical CenterComment on above:Performed By: #### [id number] #### [facility] ([facility]) [address] [place], [place] [address]Adklzlc [Mass/Vol]7.8 mg/dLLow8.6-10.3UnSumma Health Wadsworth - Rittman Medical CenterComment on above:Performed By: #### [id number] #### [facility] ([facility]) [address] [place], [place] [address]Kbohdgbi [Moles/Vol]106 mmol/IEiupip40-010VikgodmzqxSumma Health Wadsworth - Rittman Medical CenterComment on above:Performed By: #### [id number] #### [facility] ([facility]) [address] [place], [place] [address]RR1 [Moles/Vol]29 mmol/AXqozjg42-78GmlwulangxSumma Health Wadsworth - Rittman Medical CenterComment on above:Performed By: #### [id number] #### [facility] ([facility]) [address] [place], [place] [address]Bmbwzrqimv [Mass/Vol]4.98 mg/dLHigh0.70-1.30UnSumma Health Wadsworth - Rittman Medical CenterComment on above:Performed By: #### [id number] #### [facility] ([facility]) [address] [place], [place] [address]PYFZKGMRZW FILTRATION RATE ML/MIN/1.73 SQ M.GIHHKUJZD78.2 mL/min/1.73m*2Low>60.0UnSumma Health Wadsworth - Rittman Medical CenterComment on above:Result Comment: The [facility]???s estimated glomerular filtration rate (eGFR) will no [...] potential consequences that do not disproportionately affect anyone group of individuals.Performed By: #### [id number] #### [facility]) [address] [place] [place], [place] [address]Xsoleih [Mass/Vol]169 mg/zQOvay36-598PkoduwhpnfSumma Health Wadsworth - Rittman Medical CenterComment on above:Performed By: #### [id number] #### [facility] ([facility]) [address] [place], [place] [address]Dsugxsgof [Moles/Vol]3.9 mmol/LNormal3.5-5.1UnSumma Health Wadsworth - Rittman Medical CenterComment on above:Performed By: #### [id number] #### [facility] ([facility]) [address] [place], [place] [address]Cejgxx [Moles/Vol]142 mmol/JDxrewc287-203ZhxrdixmwnSumma Health Wadsworth - Rittman Medical CenterComment on above:Performed By: #### [id number] #### [facility] ([facility]) [address] [place], [place] [address]Gmwe nitrogen [Mass/Vol]61 mg/dLHigh7-25UnSumma Health Wadsworth - Rittman Medical CenterComment on above:Performed By: #### [id number] #### [facility] ([facility]) [address] [place], [place] [address]TOHM NITROGEN/CREATININE (MASS RATIO) IN SER/PLAS12.2Normal [facility] Medical CenterComment on above:Performed By: #### [id number] #### [facility] ([facility]) [address] [facility], [place] [address]FRE WITH AUTO DIFFERENTIALon 40-91-8332Qlatonxhf (Bld) [#/Vol] 0.02 10*3/uLNormal0.00-0.20UnSumma Health Wadsworth - Rittman Medical CenterComment on above: Performed By: #### [id number] ####[facility] ([facility])[address] [place], [place] [address]Lgzjrcpql/100 WBC (Bld)0.4 %Normal0.0-1.0UnSumma Health Wadsworth - Rittman Medical CenterComment on above:Performed By: #### [id number] ####[facility] ([facility])[address] [place], [place] [address]Ufylmqtmgte (Bld) [#/Vol]0.32 10*3/uL Normal0.00-0.50UnSumma Health Wadsworth - Rittman Medical CenterComment on above:Performed By: #### [id number] ####[facility] ([facility])[address] [place] [address] Eosinophils/100 WBC (Bld)6.0 %Normal0.0-6.0UnSumma Health Wadsworth - [facility] Comment on above:Performed By: #### [id number] ####[facility] ([facility])[address] [place], [place] [address]Afmtnshchnr distribution width (RBC) [Ratio]15.0 % Ygxnwq80.5-15.0UnSumma Health Wadsworth - [facility] Medical CenterComment on above:Performed By: #### [id number] ####[facility] ([facility])[address] [place] [address] ERYTHROCYTE MEAN CORPUSCULAR HEMOGLOBIN CONCENTRATION (G/DL) BY BJOHICBRX17.7 g/kFGhpngi41.0-35.0UnSumma Health Wadsworth - [facility] Medical CenterComment on above:Performed By: #### [id number] ####[facility] ([facility])[address] [place], [place] [address]Bbbkuxctqc (Bld) [Volume fraction]21.1 %Low39.0-55.0UnSumma Health Wadsworth - [facility] Medical CenterComment on above:Performed By: #### [id number] ####[facility] [place], [place] [address]Gzdjwuhcxs (Bld) [Mass/Vol]6.9 g/dLLow 13.0-17.0UnSumma Health Wadsworth - [facility] Medical CenterComment on above:Performed By: #### [id number] ####[facility] ([facility])[address] [place], [place] [address]Mgfgttej granulocytes (Bld) [#/Vol]0.04 10*3/uLNormal0.00-0.20UnSumma Health Wadsworth - [facility] Medical CenterComment on above:Performed By: #### [id number] ####[facility] ([facility])[address] [place], [place] [address]Oxxivvij granulocytes/100 WBC (Bld)0.7 %Normal0.0-1.0UnSumma Health Wadsworth - Rittman Medical CenterComment on above:Performed By: #### [id number] ####[facility] ([facility])[address] [place] [address] Lymphocytes (Bld) [#/Vol]1.08 10*3/uLLow1.20-4.00UnSumma Health W[facility]sworth - [facility] Medical CenterComment on above:Performed By: #### [id number] ####[facility] ([facility])[address] [place], [place] [address]Nkylthosjhp/100 WBC (Bld)20.1 %Normal 20.0-45.0UnSumma Health Wadsworth - Rittman Medical CenterComment on above:Performed By: #### [id number] ####[facility] ([facility])[address] [place], [place] [address]TXT (RBC) [Entitic mass]34.8 orIroe34.0-33.0UnSumma Health [facility] Comment on above:Performed By: #### [id number] ####[facility] ([facility] [place], [place] [address]OAZ (RBC) [Entitic vol]106.6 oAPxhr50.0-98.0 [facility] CenterComment on above:Performed By: #### [id number] ####[facility] ([facility] [place] [address]Mqguinsck (Bld) [#/Vol]0.41 10*3/uLNormal0.10-1.00UnSumma Health Wadsworth - Rittman Medical CenterComment on above:Performed By: #### [id number] ####[facility] ([facility])[address] [place] [address]Twagxrxkv/100 WBC (Bld)7.6 %Normal5.0-12.0UnSumma Health Wadsworth - Rittman Medical CenterComment on above:Performed By: #### [id number] ####[facility] ([facility])[address] [place] [address]Ksjouxkpdfj (Bld) [#/Vol] 3.50 10*3/uLNormal1.60-7.60UnSumma Health Wadsworth - Rittman Medical CenterComment on above: Performed By: #### [id number] ####[facility] ([facility])[address] [place] [address]Jsxxxppjzhr/100 WBC (Bld)65.2 %Lfdyqw66.0-72.0UnSumma Health Wadsworth - Rittman Medical CenterComment on above:Performed By: #### [id number] ####[facility] ([facility])[address] [place] [address]YVRM (PER 100 WBCS) BY AUTOMATED COUNT0.0 %Nsqkyq2ZyodanbbbjSumma Health Wadsworth - Rittman Medical CenterComment on above: Performed By: #### [id number] ####[facility] ([facility])[address] [place] [address]EKEKGLYVT (10*3/UL) IN BLOOD AUTOMATED EQLAQ205 10*3/uLLow 150-400UnSumma Health W[facility] - Rittman Medical CenterComment on above:Performed By: #### [id number] ####[facility] ([facility])[address] [place] [address]JHM (Bld) [#/Vol]1.98 10*6/uLLow4.20-5.70UnSumma Health W[facility] - Rittman Medical CenterComment on above:Performed By: #### [id number] ####[facility] ([facility])[address] [place] [address]IZK (Bld) [#/Vol]5.37 10*3/uLNormal4.00-10.60UnSumma Health W[facility] - Rittman Medical CenterComment on above:Performed By: #### [id number] ####[facility] ([facility])[address] [place] [address]KF ABDOMEN PELVIS WO IV CONTRASTon 47-31-3768DZ ABDOMEN PELVIS WO IV CONTRASTHistory: Kidney failure, acute Renal failure, evaluate for [...] as reasonably achievable. Electronically signed: Ezequiel Dominguez. 5Invalid Interpretation CodeUnSumma Health Wadsworth - Rittman Medical CenterIROJose AND Kurtis 28-22-6673WEUN (UG/DL) IN SER/PLAS36 ug/wMOep60-210YtftycgjvvSumma Health Wadsworth - Rittman Medical CenterComment on above:Performed By: #### [id number] ####[facility] ([facility])[address] [place], [place] [address]ZUND BINDING CAPACITY (UG/DL) IN SER/POZX068 ug/dDDsf557-761LfwsyeunroSumma Health Wadsworth - Rittman Medical CenterComment on above: Performed By: #### [id number] ####[facility] ([facility])[address] [place], [place] [address]ONAA BINDING CAPACITY.UNSATURATED (UG/DL) IN SER/PLAS93.0 ug/tPZpj643.0-355.0UnSumma Health Wadsworth - Rittman Medical CenterComment on above:Performed By: #### [id number] ####[facility] ([facility])[address] [place], [place] [address]YANN SATURATION (%) IN SER/PLAS28 %Bdsixt56-49SroprdaqbzSumma Health Wadsworth - Rittman Medical CenterComment on above:Performed By: #### [id number] ####[facility] ([facility])[address] [place], [place] [address]WPRFXOPUApj 80-40-4942Bcswukkvb [Mass/Vol]1.8 mg/dLLow1.9-2.7UnSumma Health W[facility] - Rittman Medical CenterComment on above:Performed By: #### [id number] #### [facility] ([facility]) [address] [place], [place] [address]IXBS GLUCOSE METER UNSOLICITED RESULTSon 93-54-0629Gboypiy [Mass/Vol]170 mg/xFBbqm71-309JwpgllccwhSumma Health Wadsworth - Rittman Medical CenterComment on above:Order Comment: Waived Testing in the ED is performed under the ED CLIA certificate #[id number].Result Comment: [email or web address] By: #### [id number] #### [facility] ([facility]) [address] [place], [place] [address]Gyvllmk [Mass/Vol]119 mg/aBWbvk66-218EshjgoaztoSumma Health Wadsworth - Rittman Medical CenterComment on above:Order Comment: Waived Testing in the ED is performed under the ED CLIA certificate #[id number].Result Comment: [email or web address] Performed By: #### [id number] ####[facility] ([facility])[address] [place], [place] [address]Lbbhhtf [Mass/Vol]168 mg/qAWmga58-283QmfigdxuplKettering Health Behavioral Medical CenterComment on above:Order Comment: Waived Testing in the ED is performed under the ED CLIA certificate #[id number].Result Comment: [email or web address] Performed By: #### [id number] #### [facility] ([facility]) [address] [place], [place] [address]Houjnma [Mass/Vol]186 mg/hSCreh40-343ZzowrlfuuxKettering Health Behavioral Medical CenterComment on above:Order Comment: Waived Testing in the ED is performed under the ED CLIA certificate #[id number].Result Comment: [email or web address] Performed By: #### [id number] #### [facility] ([facility]) [address] [place], [place] [address]EAYO AND SCREENon 07-15-6154UX SCREENNegativeNormalUniCleveland Clinic Lutheran HospitalComment on above:Performed By: #### [id number] #### [facility] ([facility]) [address] [place], [place] [address]ECB group Nom (Bld)ANormalUniversOhio State University [facility]ner Medical Center Comment on above:Performed By: #### [id number] #### [facility] ([facility]) [address] [place], [place] [address]AA TYPE IN BLOODPositiveNormalUniversOhio State University Wexner Medical CenterComment on above:Performed By: #### [id number] #### [facility] ([facility]) [address] [place], [place] [address]dv [id number] patient is Moderately Stable - Low risk of patient condition declining or worsening The patient's goals for the shift include safety, comfort The clinical goals for the shift include VSS Problem: Pain - Adult Goal: Verbalizes/displays adequate comfort level or baseline comfort level Outcome: Progressing Problem: Safety - Adult Goal: Free from fall injury Outcome: Progressing Flowsheets (Taken 07/26/2024 2006) Free from fall injury: Assess patient frequently for physical needs Problem: Discharge Planning Goal: Discharge to home or other facility with appropriate resources Outcome: Progressing Problem: Chronic Conditions and Co-morbidities Goal: Patient's chronic conditions and co-morbidity symptoms are monitored and maintained or improved Outcome: ProgressingNormalUniversOhio State University [facility]xner Medical Center30The patient is Moderately Stable - Low risk of patient condition declining or worsening The patient's goals for the shift include comfort The clinical goals for the shift include vssNormalUniversOhio State University Wexner Medical CenterBASIC METABOLIC PANELon 45-05-1385Iwsot gap [Moles/Vol]13 mmol/LNormal7-20 [facility] CenterComment on above:Performed By: #### [id number] #### [facility] ([facility]) [address] [place], [place] [address]Ajwnrmc [Mass/Vol]8.0 mg/dLLow8.6-10.3UnSumma Health W[facility] - Rittman Medical CenterComment on above:Performed By: #### [id number] #### [facility] ([facility]) [address] [place], [place] [address]Muydhmgc [Moles/Vol]108 mmol/FXohe26-610LdxtuznfswSumma Health Wadsworth - Rittman Medical CenterComment on above:Performed By: #### [id number] #### [facility] ([facility]) [address] [place], [place] [address]ZE2 [Moles/Vol]21 mmol/JYyuukn10-26ZltnxbhvvxSumma Health Wadsworth - Rittman Medical CenterComment on above:Performed By: #### [id number] #### [facility] ([facility]) [address] [place], [place] [address]Xxpdvufrme [Mass/Vol]6.28 mg/dLHigh0.70-1.30UnSumma Health W[facility] - Rittman Medical CenterComment on above:Performed By: #### [id number] #### [facility] ([facility]) [address] [place], [place] [address]TWUZYLYTLJ FILTRATION RATE ML/MIN/1.73 SQ M.PREDICTED8.4 mL/min/1.73m*2Low>60.0UnSumma Health Wadsworth - Rittman Medical CenterComment on above:Result Comment: The [facility]???s estimated glomerular filtration rate (eGFR) will no [...] potential consequences that do not disproportionately affect anyone group of individuals.Performed By: #### [id number] #### [facility] ([facility]) [address] [place], [place] [address]Njfssnu [Mass/Vol]123 mg/rJErqf90-369BlmpkzlznaSumma Health Wadsworth - Rittman Medical CenterComment on above:Performed By: #### [id number] #### [facility] ([facility]) [address] [place], [place] [address]Muecsgqko [Moles/Vol]4.2 mmol/LNormal3.5-5.1UnSumma Health W[facility] - Rittman Medical CenterComment on above:Performed By: #### [id number] #### [facility] ([facility]) [address] [place], [place] [address]Fnucdo [Moles/Vol]138 mmol/XCjexww380-907NcknonymytSumma Health Wadsworth - Rittman Medical CenterComment on above:Performed By: #### [id number] #### [facility] ([facility]) [address] [place], [place] [address]Vsfj nitrogen [Mass/Vol]71 mg/dLHigh7-25UnSumma Health [facility] - Rittman Medical CenterComment on above:Performed By: #### [id number] #### [facility] ([facility]) [address] [place], [place] [address]GXTC NITROGEN/CREATININE (MASS RATIO) IN SER/PLAS11.3Normal [facility] CenterComment on above:Performed By: #### [id number] #### [facility] ([facility]) [address] [place], [place] [address]JUE WITH AUTO DIFFERENTIALon 47-13-6401Zaekxajvr (Bld) [#/Vol] 0.02 10*3/uLNormal0.00-0.20UnSumma Health W[facility] - Rittman Medical CenterComment on above: Performed By: #### [id number] #### [facility] ([facility]) [address] [place], [place] [address]Qrpchmbec/100 WBC (Bld)0.3 %Normal0.0-1.0UnSumma Health W[facility] - Rittman Medical CenterComment on above:Performed By: #### [id number] #### [facility] ([facility]) [address] [place], [place] [address]Qrvrpjmrkbn (Bld) [#/Vol]0.32 10*3/uLNormal0.00-0.50UnSumma Health [facility] Medical CenterComment on above:Performed By: #### [id number] #### [facility] ([facility]) [address] [place], [place] [address]Ifleavpujsa/100 WBC (Bld)4.0 %Normal0.0-6.0UnSumma Health [facility] - Ritt[facility] Medical CenterComment on above:Performed By: #### [id number] #### [facility] ([facility]) [address] [place], [place] [address]Rqlypfimuri distribution width (RBC) [Ratio]15.3 %High11.5-15.0 [facility] CenterComment on above:Performed By: #### [id number] #### [facility] ([facility]) [address] [place], [place] [address]FHNCCRGDYEO MEAN CORPUSCULAR HEMOGLOBIN CONCENTRATION (G/DL) BY TXEIJOYRF44.9 g/mAWxizob64.0-35.0UnSumma Health [facility] - [facility] Medical CenterComment on above:Performed By: #### [id number] #### [facility] ([facility]) [address] [place], [place] [address]Nivyvkgptd (Bld) [Volume fraction]22.2 %Low39.0-55.0UnSumma Health W[facility] - Rittman Medical CenterComment on above:Performed By: #### [id number] #### [facility] ([facility]) [address] [facility] [place], [place] [address]Cczljlbiby (Bld) [Mass/Vol]7.3 g/dLLow13.0-17.0UnSumma Health [facility] - [facility]ittman Medical CenterComment on above:Performed By: #### [id number] #### [facility] ([facility]) [address] [facility] [place], [place] [address]Xujuihgh granulocytes (Bld) [#/Vol]0.06 10*3/uLNormal0.00-0.20 [facility] CenterComment on above:Performed By: #### [id number] #### [facility] ([facility]) [address] [facility] [place] [place] [address]Fsywgtys granulocytes/100 WBC (Bld)0.8 %Normal0.0-1.0UnSumma Health Wadsworth - Rittman Medical CenterComment on above:Performed By: #### [id number] #### [facility] ([facility]) [address] [facility] [place] [address]Mrxxraaupys (Bld) [#/Vol]0.98 10*3/uLLow1.20-4.00UnSumma Health [facility] - [facility]itt[facility] Medical CenterComment on above:Performed By: #### [id number] #### [facility] ([facility]) [address] [place], [place] [address]Cqnmsllmnzo/100 WBC (Bld)12.3 %Low20.0-45.0UnSumma Health W[facility] - Rittman Medical CenterComment on above:Performed By: #### [id number] #### [facility] ([facility]) [address] [facility] [place], [place] [address]WXW (RBC) [Entitic mass]36.1 vpKvfi72.0-33.0UnSumma Health [facility] - [facility]ittman Medical CenterComment on above:Performed By: #### [id number] #### [facility] ([facility]) [address] [place], [place] [address]VHV (RBC) [Entitic vol]109.9 cSHunm93.0-98.0UnSumma Health W[facility]sworth - Rittman Medical CenterComment on above:Performed By: #### [id number] #### [facility] ([facility]) [address] [place] [address]Ykbyjddwg (Bld) [#/Vol]0.53 10*3/uLNormal0.10-1.00UnSumma Health W[facility] - Ritt[facility] Medical CenterComment on above:Performed By: #### [id number] #### [facility] ([facility]) [address] [place] [address]Jsfjklids/100 WBC (Bld)6.7 %Normal5.0-12.0UnSumma Health Wadsworth - Rittman Medical CenterComment on above:Performed By: #### [id number] #### [facility] ([facility]) [address] [place] [address]Dzznqkkodxg (Bld) [#/Vol]6.03 10*3/uLNormal1.60-7.60UnSumma Health [facility] Medical CenterComment on above:Performed By: #### [id number] #### [facility] ([facility]) [address] [place] [address]Inhblxaaabm/100 WBC (Bld)75.9 %High40.0-72.0UnSumma Health W[facility] - Rittman Medical CenterComment on above:Performed By: #### [id number] #### [facility] ([facility]) [address] [place] [address]COVC (PER 100 WBCS) BY AUTOMATED COUNT0.0 %Iipbnd2EnhgtrqskkSumma Health Wadsworth - Rittman Medical CenterComment on above:Performed By: #### [id number] #### [facility] ([facility]) [address] [place] [address]TBNCVVZUK (10*3/UL) IN BLOOD AUTOMATED [id number] 10*3/uLLow 150-400UnSumma Health W[facility] - Ritt[facility] Medical CenterComment on above:Performed By: #### [id number] #### [facility] [address] [place] [address]GPP (Bld) [#/Vol]2.02 10*6/uLLow4.20-5.70UnSumma Health [facility] - [facility]itt[facility] Medical CenterComment on above:Performed By: #### [id number] #### [facility] ([facility]) [address] [place] [address]RNB (Bld) [#/Vol]7.94 10*3/uLNormal4.00-10.60UnSumma Health [facility] - [facility] Medical CenterComment on above:Performed By: #### [id number] #### [facility] ([facility]) [address] [place] [address]VMFIDOPZUlf 05-16-2192Leatzoomp [Mass/Vol]1.9 mg/dLNormal1.9-2.7 [facility] CenterComment on above:Performed By: #### [id number] ####[facility] ([facility])[address] [place] [address]NWYE GLUCOSE METER UNSOLICITED RESULTSon 67-01-5461Dynezfz [Mass/Vol]167 mg/pLNxwz90-339 [facility] CenterComment on above:Order Comment: Waived Testing in the ED is performed under the ED CLIA certificate #[id number].Result Comment: anuyitnPerformed By: #### [id number] ####[facility] ([facility])[address] [place] [address]Hkceimo [Mass/Vol]207 mg/fJKbvd89-825GoaeyzcrxiSumma Health Wadsworth - Rittman Medical CenterComment on above:Order Comment: Waived Testing in the ED is performed under the ED CLIA certificate #[id number].Result Comment: [email or web address] Performed By: #### [id number] #### [facility] ([facility]) [address] [place] [address]Mgvwddr [Mass/Vol]146 mg/gCZpex60-861JnjzxmfhioSumma Health Wadsworth - Rittman Medical CenterComment on above:Order Comment: Waived Testing in the ED is performed under the ED CLIA certificate #[id number].Result Comment: sdibling Performed By: #### [id number] #### [facility] ([facility]) [address] [place], [place] [address]Nhmyzad [Mass/Vol]139 mg/mDEutg36-653FtgdfwrkebSumma Health Wadsworth - Rittman Medical CenterComment on above:Order Comment: Waived Testing in the ED is performed under the ED CLIA certificate #[id number].Result Comment: [email or web address] Performed By: #### [id number] #### [facility] ([facility]) [address] [place], [place] [address]ev 12-77-908[address]Kjf patient is Moderately Stable - Low risk of patient condition [...] are monitored and maintained or improved Outcome: ProgressingNormalUniversOhio State University [facility]xner Medical Center30Daily Case Management Update Multidisciplinary rounds have been completed. Barriers [...] medications Question: Reason for NPO: Answer: Operation/Procedure 07/24/241713 Physician Expected Discharge Date: 07/28/2024 Discharge Delays: [...] of Consultation Consultation and Management 07/24/24 1714 07/24/241713 Inpatient consult to Nephrology Once Specialty: Nephrology [...] Reason for OT? Answer: D/C recs 07/24/24 183NormalUniversity [facility]30The patient is Moderately Stable - Low risk of patient condition declining or worsening The patient's goals for the shift include comfort The clinical goals for the shift include VSSNormalUniversOhio State University Wexner Medical CenterBASIC METABOLIC PANELon 57-08-5997Xyylg gap [Moles/Vol]11 mmol/LNormal7-20 [facility] CenterComment on above:Performed By: #### [id number] #### [facility] ([facility]) [address] [place], [place] [address]Lohedkj [Mass/Vol]8.5 mg/dLLow8.6-10.3UnSumma Health Wadsworth - Rittman Medical CenterComment on above:Performed By: #### [id number] #### [facility] ([facility]) [address] [place], [place] [address]Zazobtra [Moles/Vol]111 mmol/HAtru66-060LkinjucweySumma Health Wadsworth - Rittman Medical CenterComment on above:Performed By: #### [id number] #### [facility] ([facility]) [address] [place], [place] [address]RQ5 [Moles/Vol]20 mmol/LYfd59-08JmjmeasqipSumma Health Wadsworth - Rittman Medical CenterComment on above:Performed By: #### [id number] #### [facility] ([facility]) [address] [place], [place] [address]Jpguedmnve [Mass/Vol]6.22 mg/dLHigh0.70-1.30UnSumma Health Wadsworth - Rittman Medical CenterComment on above:Performed By: #### [id number] #### [facility] ([facility]) [address] [place] [address]DJIGYVBLQX FILTRATION RATE ML/MIN/1.73 SQ M.PREDICTED8.5 mL/min/1.73m*2Low>60.0UnSumma Health Wadsworth - Rittman Medical CenterComment on above:Result Comment: The [facility]???s estimated glomerular filtration rate (eGFR) will no [...] potential consequences that do not disproportionately affect anyone group of individuals.Performed By: #### [id number] #### [facility] ([facility]) [address] [place] [address]Sswoeon [Mass/Vol]187 mg/bKRglp42-252WpggyoleciSumma Health Wadsworth - Rittman Medical CenterComment on above:Performed By: #### [id number] #### [facility] ([facility]) [address] [place] [address]Pyuxzuckj [Moles/Vol]5.2 mmol/LHigh3.5-5.1UnSumma Health W[facility]sworth - Rittman Medical CenterComment on above:Performed By: #### [id number] #### [facility] ([facility]) [address] [place] [address]Dvbonp [Moles/Vol]137 mmol/RMaefgr361-949XqwgmjqsqySumma Health Wadsworth - Rittman Medical CenterComment on above:Performed By: #### [id number] #### [facility] ([facility]) [address] [place] [address]Lfpf nitrogen [Mass/Vol]75 mg/dLHigh7-25UnSumma Health W[facility] - Rittman Medical CenterComment on above:Performed By: #### [id number] #### [facility] ([facility]) [address] [place] [address]AVKJ NITROGEN/CREATININE (MASS RATIO) IN SER/PLAS12.1Normal [facility] CenterComment on above:Performed By: #### [id number] #### [facility] ([facility]) [address] [place] [address]WZW WITH AUTO DIFFERENTIALon 33-24-2466Olmuixhoa (Bld) [#/Vol] 0.02 10*3/uLNormal0.00-0.20UnSumma Health Wadsworth - Rittman Medical CenterComment on above: Performed By: #### [id number] #### [facility] ([facility]) [address] [place], [place] [address]Jkidvalzm/100 WBC (Bld)0.3 %Normal0.0-1.0UnSumma Health Wadsworth - Rittman Medical CenterComment on above:Performed By: #### [id number] #### [facility] ([facility]) [address] [place], [place] [address]Ffrslyhpwkm (Bld) [#/Vol]0.49 10*3/uLNormal0.00-0.50UnSumma Health W[facility]sworth - Rittman Medical CenterComment on above:Performed By: #### [id number] #### [facility] ([facility]) [address] [place] [address]Vmlbmwjqkza/100 WBC (Bld)6.9 %High0.0-6.0UnSumma Health W[facility] - Rittman Medical CenterComment on above:Performed By: #### [id number] #### [facility] ([facility]) [address] [place], [place] [address]Pvhmwvyojhf distribution width (RBC) [Ratio]15.3 %High11.5-15.0 [facility] CenterComment on above:Performed By: #### [id number] #### [facility] ([facility]) [address] [place] [address]OIJAVJHQPMB MEAN CORPUSCULAR HEMOGLOBIN CONCENTRATION (G/DL) BY KPMWRLBWW12.6 g/ePXsskvi11.0-35.0UnSumma Health Wadsworth - Rittman Medical CenterComment on above:Performed By: #### [id number] #### [facility] ([facility]) [address] [place] [address]Trnpwtijll (Bld) [Volume fraction]23.6 %Low39.0-55.0UnSumma Health Wadsworth - Rittman Medical CenterComment on above:Performed By: #### [id number] #### [facility] ([facility]) [address] [place] [address]Svfmmfkpqh (Bld) [Mass/Vol]7.7 g/dLLow13.0-17.0UnSumma Health Wadsworth - Rittman Medical CenterComment on above:Performed By: #### [id number] #### [facility] ([facility]) [address] [place] [address]Fruwvwcp granulocytes (Bld) [#/Vol]0.06 10*3/uLNormal0.00-0.20 [facility] CenterComment on above:Performed By: #### [id number] #### [facility] ([facility]) [address] [place] [address]Emjzuugk granulocytes/100 WBC (Bld)0.8 %Normal0.0-1.0UnSumma Health Wadsworth - Rittman Medical CenterComment on above:Performed By: #### [id number] #### [facility] ([facility]) [address] [place] [address]Vvobowdyxah (Bld) [#/Vol]0.95 10*3/uLLow1.20-4.00UnSumma Health Wadsworth - Rittman Medical CenterComment on above:Performed By: #### [id number] #### [facility] ([facility]) [address] [address]Bphiwwrigpd/100 WBC (Bld)13.3 %Low20.0-45.0UnSumma Health Wadsworth - Rittman Medical CenterComment on above:Performed By: #### [id number] #### [facility] [address] [place] [address]UAY (RBC) [Entitic mass]34.8 khSird55.0-33.0UnSumma Health Wadsworth - Rittman Medical CenterComment on above:Performed By: #### [id number] #### [facility] ([facility]) [address] [place] [address]SWH (RBC) [Entitic vol]106.8 xOIdpp15.0-98.0UnSumma Health Wadsworth - Rittman Medical CenterComment on above:Performed By: #### [id number] #### [facility] ([facility]) [address] [place], [place] [address]Dnypoftua (Bld) [#/Vol]0.63 10*3/uLNormal0.10-1.00UnSumma Health W[facility]sworth - Rittman Medical CenterComment on above:Performed By: #### [id number] #### [facility] ([facility]) [address] [place], [place] [address]Evneslnmm/100 WBC (Bld)8.8 %Normal5.0-12.0UnSumma Health Wadsworth - Rittman Medical CenterComment on above:Performed By: #### [id number] #### [facility] [facility]) [address] [place], [place] [address]Wynbsyqyxrt (Bld) [#/Vol]5.00 10*3/uLNormal1.60-7.60UnSumma Health Wadsworth - Rittman Medical CenterComment on above:Performed By: #### [id number] #### [facility] ([facility]) [address] [place], [place] [address]Kpcpjstkoos/100 WBC (Bld)69.9 %Tqcikq57.0-72.0UnSumma Health Wadsworth - Rittman Medical CenterComment on above:Performed By: #### [id number] #### [facility] ([facility]) [address] [place], [place] [address]DSBT (PER 100 WBCS) BY AUTOMATED COUNT0.0 %Asnpzr8FejrsckotgSumma Health Wadsworth - Rittman Medical CenterComment on above:Performed By: #### [id number] #### [facility] ([facility]) [address] [place], [place] [address]YTEZSBTGY (10*3/UL) IN BLOOD AUTOMATED [id number] 10*3/uLLow 150-400UnSumma Health Wadsworth - Rittman Medical CenterComment on above:Performed By: #### [id number] #### [facility] ([facility]) [address] [facility] [place], [place] [address]ZAR (Bld) [#/Vol]2.21 10*6/uLLow4.20-5.70UnSumma Health Wadsworth - Rittman Medical CenterComment on above:Performed By: #### [id number] #### [facility] ([facility]) [address] [place], [place] [address]IDE (Bld) [#/Vol]7.15 10*3/uLNormal4.00-10.60UnSumma Health Wadsworth - Rittman Medical CenterComment on above:Performed By: #### [id number] #### [facility] ([facility]) [address] [place], [place] [address]REJCOQMot 97-90-0931RDMROWOUlvwdgslpk Consult Note Patient : Patsy Mills; 79 y.o. Location: [facility]0/4110-01 Attending: Cris Devries DO Admit Date: 07/24/2024 Hospital Day: 1 Reason for Consult: RINA on CKD. Appreciate recommendations regarding initiation of hemodialysis. History of Present Illness: Patsy Mills is a 79 y.o. male with past medical history of CKD, diabetes, multiple myeloma status post bone marrow transplantation/chemotherapy and past urologic history of BPH, [place] 6 prostate cancer under active surveillance, chronic retention status post SP tube placement exchanged every 3 weeks (last exchanged 2 weeks ago), chronic bilateral hydronephrosis managed by chronic indwelling ureteral stents exchanged every 3 to [address] Lane in [place] who presents as transfer from OSH with [...] position. Patient was transferred from [facility] as they required higher level of [...] (L) 07/25/2024 NOÉ 6. (more content not included)...NormalUnSumma Health Wadsworth - Rittman Medical Center CONSULT Attestation signed by Franklyn Manley MD at 07/28/2024 5:33 PM I personally saw and examined the patient on the same date of service as resident/fellow saw the patient. I discussed the findings and therapeutic plan which is reflected on the plan in the note. I agree with the documentation Urology Consultation Patient: Patsy Mills Date of : 1945 REASON FOR CONSULT acute renal failure, chronic hydronephrosis managed with chronic indwelling bilateral ureteral stents HISTORY OF PRESENT ILLNESS: The patient is a 79 y.o. male past medical history of CKD, diabetes, multiple myeloma status post bone marrow transplantation/chemotherapy and past urologic history of BPH, [place] 6 prostate cancer under active surveillance, chronic retention status post SP tube placement exchanged every 3 weeks (last exchanged 2 weeks ago), chronic bilateral hydronephrosis managed by chronic indwelling ureteral stents exchanged every 3 to [address] Lane in [place] who presents as transfer from OSH with [...] Current packs/day: 0.00 Types: Cigarettes Quit date: 2000 Years since quittin.9 Passive exposure: Past Smokeless [...] No Family History: No (more content not included)...NormalUnSumma Health Wadsworth - Rittman Medical CenterCREATININE, URINE, RANDOMon 23-12-1108Fcqnjnkkjh (U) [Mass/Vol] 44.0 mg/wDTkmblk78-113LqyzynorepSumma Health Wadsworth - Rittman Medical CenterComment on above: Performed By: #### [id number] #### [facility] ([facility]) [address] [place], [place] [address]DPHSDSHEMec 84-55-8323Uikrewjhc [Mass/Vol]2.0 mg/dLNormal1.9-2.7 [facility] CenterComment on above:Performed By: #### [id number] #### [facility] ([facility]) [address] [place], [place] [address]JOSP GLUCOSE METER UNSOLICITED RESULTSon 97-32-8203Dvaokws [Mass/Vol]137 mg/tIFsdb73-110VazbfhhddkSumma Health Wadsworth - Rittman Medical CenterComment on above:Order Comment: Waived Testing in the ED is performed under the ED CLIA certificate #[id number].Result Comment: [email or web address] By: #### [id number] ####[facility] ([facility])[address] [place], [place] [address]Pjrrqcb [Mass/Vol]234 mg/yTGdnq44-158RlzpjrvgwzSumma Health Wadsworth - Rittman Medical CenterComment on above:Order Comment: Waived Testing in the ED is performed under the ED CLIA certificate #[id number].Result Comment: [email or web address] By: #### [id number] #### [facility] ([facility]) [address] [place], [place] [address]Lgatfpp [Mass/Vol]150 mg/dNCqti78-403NypbvvfsmqSumma Health Wadsworth - Rittman Medical CenterComment on above:Order Comment: Waived Testing in the ED is performed under the ED CLIA certificate #[id number].Result Comment: [email or web address] Performed By: #### [id number] #### [facility] ([facility]) [address] [place], [place] [address]OXPDYRUPNnw 65-47-8888Tbcbaedfz [Moles/Vol]4.8 mmol/LNormal 3.5-5.1UnSumma Health Wadsworth - Rittman Medical CenterComment on above:Performed By: #### [id number] #### [facility] ([facility]) [address] [place], [place] [address]IIWSCZJ, URINE, RANDOMon 56-50-6183Evlvlpc (U) [Mass/Vol]81.2 mg/dLNormalUniCleveland Clinic Lutheran HospitalComment on above:Result Comment: There are no established reference values for random urine specimens.Performed By: #### [id number] ####[facility] ([facility])[address] [place] [address] SODIUM, URINE, RANDOMon 93-03-2080Pnpbkc (U) [Moles/Vol]94 mmol/LNormal [facility] CenterComment on above:Performed By: #### [id number] #### [facility] ([facility]) [address] [place], [place] [address]GRRHXRLEOL WITH MICROSCOPICon 79-99-3969ZYGJGGWAR, TOTAL PRESENCE IN URINENegativeNormalNegativeUnSumma Health W[facility] - [facility] Center Comment on above:Performed By: #### [id number] ####[facility] ([facility])[address] [place], [place] [address]Thlioka (U)TurbidAbnormalClearUnSumma Health Wadsworth - Rittman Medical CenterComment on above:Performed By: #### [id number] ####[facility] [place], [place] [address]Nidco (U)Dark-YellowAbnormalColorless, Yellow, Light-YellowUnSumma Health Wadsworth - Rittman Medical CenterComment on above: Performed By: #### [id number] ####[facility] ([facility])[address] [place], [place] [address]Rczvxxa (U) [Mass/Vol]70 mg/dLAbnormalNormalUniversOhio State University Wexner Medical CenterComment on above:Performed By: #### [id number] ####[facility] ([facility])[address] [place], [place] [address]PRPLYHRGTA PRESENCE IN URINELargeAbnonovant health charlotte orthopaedic hospitalNegativeUnSumma Health Wadsworth - Rittman Medical CenterComment on above: Performed By: #### [id number] ####[facility] ([facility])[address] [place], [place] [address]Lnfmloc Ql (U)NegativeNormalNegativeUnSumma Health Wadsworth - Rittman Medical CenterComment on above:Performed By: #### [id number] ####[facility] ([facility])[address] [place], [place] [address]XMEXLBEDS ESTERASE PRESENCE IN URINE BY TEST STRIPLargeAborosiNegalaska regional hospitalUnSumma Health Wadsworth - Rittman Medical CenterComment on above:Performed By: #### [id number] ####[facility] ([facility])[address] [place], [place] [address]WMCDQRF PRESENCE IN URINENegativeNormalNegativeUnSumma Health Wadsworth - Rittman Medical CenterComment on above:Performed By: #### [id number] ####[facility] ([facility])[address] [place], [place] [address]sH (U)6.0 [pH]Normal 5.0-8.0UnSumma Health Wadsworth - Rittman Medical CenterComment on above:Performed By: #### [id number] ####[facility] ([facility])[address] [place], [place] [address]Peacbke (U) [Mass/Vol]30 mg/dLAbnormalNegativeUnSumma Health Wadsworth - Rittman Medical CenterComment on above:Performed By: #### [id number] ####[facility] ([facility])[address] [place], [place] [address]TYH (#/HPF) IN URINE SEDIMENT>20AbnormalNone Seen, 0-2UnSumma Health Wadsworth - Rittman Medical CenterComment on above:Performed By: #### [id number] ####[facility] ([facility])[address] [place], [place] [address]Krlhrxbg gravity (U) [Rel density]1.129Vyx2.010-1.030UnSumma Health [facility] Comment on above:Performed By: #### [id number] ####[facility] ([facility])[address] [place], [place] [address]NDOMXRIM EPITHELIAL CELLS (#/LPF) IN URINE SEDIMENT None SeenNormalNone Seen, Occasional, FewUnSumma Health Wadsworth - Rittman Medical Center Comment on above:Performed By: #### [id number] ####[facility] ([facility])[address] [place] [address]EGRSXYBCUGTP (MG/DL) IN URINENormalNormalNormal [facility] CenterComment on above:Performed By: #### [id number] ####[facility] ([facility])[address] [place], [place] [address]JDL (LEUKOCYTE) (#/HPF) IN URINE SEDIMENT>50AbnormalNone Seen, 0-2UnSumma Health Wadsworth - Rittman Medical CenterComment on above:Performed By: #### [id number] ####[facility] ([facility])[address] [place], [place] [address]GQO (LEUKOCYTE) CLUMPS (#/HPF) IN URINE SEDIMENTPresentAbnormalNone [facility] Columbus SouthComment on above:Performed By: #### [id number] ####[facility] [place], [place] [address]sp 55-98-451668Ahs patient is Moderately Stable - Low risk of patient condition declining or worsening The patient's goals for the shift include The clinical goals for the shift include VSS. restNormalUniversOhio State University Wexner Medical CenterBASIC METABOLIC PANELon 61-94-1742Pxrkr gap [Moles/Vol]14 mmol/L Normal7-20UnSumma Health Wadsworth - Rittman Medical CenterComment on above:Performed By: #### [id number] #### [facility] ([facility]) [address] [place] [address]Qtpkgmq [Mass/Vol]8.9 mg/dLNormal8.6-10.3UnSumma Health Wadsworth - Rittman Medical CenterComment on above:Performed By: #### [id number] #### [facility] ([facility]) [address] [place], [place] [address]Jbqatwri [Moles/Vol]111 mmol/XHgwi30-600GrlwjguoqbSumma Health Wadsworth - Rittman Medical CenterComment on above:Performed By: #### [id number] #### [facility] ([facility]) [address] [place], [place] [address]XO2 [Moles/Vol]17 mmol/CCwd00-81YvryamrbeoSumma Health Wadsworth - Rittman Medical CenterComment on above:Performed By: #### [id number] #### [facility] ([facility]) [address] [place], [place] [address]Xkbqvwdytm [Mass/Vol]6.20 mg/dLHigh0.70-1.30UnSumma Health Wadsworth - Rittman Medical CenterComment on above:Performed By: #### [id number] #### [facility] ([facility]) [address] [place], [place] [address]TJXQAGXVOE FILTRATION RATE ML/MIN/1.73 SQ M.PREDICTED8.6 mL/min/1.73m*2Low>60.0UnSumma Health Wadsworth - Rittman Medical CenterComment on above:Result Comment: The [facility]???s estimated glomerular filtration rate (eGFR) will no [...] potential consequences that do not disproportionately affect anyone group of individuals.Performed By: #### [id number] #### [facility] ([facility]) [address] [place], [place] [address]Uevjhnn [Mass/Vol]158 mg/yKJurf64-149EngkoseighSumma Health Wadsworth - Rittman Medical CenterComment on above:Performed By: #### [id number] #### [facility] ([facility]) [address] [place], [place] [address]Dkqpowgdw [Moles/Vol]5.1 mmol/LNormal3.5-5.1UnSumma Health Wadsworth - Rittman Medical CenterComment on above:Performed By: #### [id number] #### [facility] ([facility]) [address] [place], [place] [address]Txkvkj [Moles/Vol]137 mmol/UNkfplm229-051YnqxzumbkiSumma Health Wadsworth - Rittman Medical CenterComment on above:Performed By: #### [id number] #### [facility] ([facility]) [address] [place], [place] [address]Ncuk nitrogen [Mass/Vol]74 mg/dLHigh7-25UnSumma Health Wadsworth - Ritt[facility] Medical CenterComment on above:Performed By: #### [id number] #### [facility] ([facility]) [address] [place] [place], [place] [address]JMKW NITROGEN/CREATININE (MASS RATIO) IN SER/PLAS11.9Normal [facility] CenterComment on above:Performed By: #### [id number] #### [facility] ([facility]) [address] [place], [place] [address]OLPic 30-91-7664Gaxsjasfdsh distribution width (RBC) [Ratio]15.6 %High11.5-15.0UnSumma Health Wadsworth - Rittman Medical CenterComment on above:Performed By: #### [id number] #### [facility] ([facility]) [address] [place], [place] [address]IQKLRLNEKQZ MEAN CORPUSCULAR HEMOGLOBIN CONCENTRATION (G/DL) BY KWZBWBGZM31.8 g/dLLow32.0-35.0UnSumma Health Wadsworth - Rittman Medical CenterComment on above:Performed By: #### [id number] #### [facility] ([facility]) [address] [place] [address]Qdgnvakmjj (Bld) [Volume fraction]25.8 %Low39.0-55.0UnSumma Health Wadsworth - Rittman Medical CenterComment on above:Performed By: #### [id number] #### [facility] ([facility]) [address] [place] [address]Fnmiohbche (Bld) [Mass/Vol]8.2 g/dLLow13.0-17.0UnSumma Health Wadsworth - Rittman Medical CenterComment on above:Performed By: #### [id number] #### [facility] ([facility]) [address] [place] [address]RUE (RBC) [Entitic mass]34.7 cgPlql99.0-33.0UnSumma Health Wadsworth - Rittman Medical CenterComment on above:Performed By: #### [id number] #### [facility] ([facility]) [address] [place] [address]ZUY (RBC) [Entitic vol]109.3 lFAnay27.0-98.0UnSumma Health Wadsworth - Rittman Medical CenterComment on above:Performed By: #### [id number] #### [facility] ([facility]) [address] [place] [address]XUEIQLTWJ (10*3/UL) IN BLOOD AUTOMATED [id number] 10*3/uLNormal 150-400UnSumma Health Wadsworth - Rittman Medical CenterComment on above:Performed By: #### [id number] #### [facility] ([facility]) [address] [place] [address]MQA (Bld) [#/Vol]2.36 10*6/uLLow4.20-5.70UnSumma Health Wadsworth - Rittman Medical CenterComment on above:Performed By: #### [id number] #### [facility] ([facility]) [address] [place] [address]EPB (Bld) [#/Vol]7.08 10*3/uLNormal4.00-10.60UnSumma Health Wadsworth - Rittman Medical CenterComment on above:Performed By: #### [id number] #### [facility] ([facility]) [address] [place] [address]FOqh 60-39-8537VWUook report has been cancelled.NormalUnSumma Health Wadsworth - Rittman Medical CenterMAGNESIUMon 81-47-2109Lagsunoxo [Mass/Vol]2.1 mg/dL Normal1.9-2.7UnSumma Health Wadsworth - Rittman Medical CenterComment on above:Performed By: #### [id number] #### [facility] ([facility]) [address] [place], [place] [address]ZVQA GLUCOSE METER UNSOLICITED RESULTSon 96-03-7210Inswjbk [Mass/Vol]213 mg/lYElzi77-669YsbdhatslxSumma Health Wadsworth - Rittman Medical CenterComment on above:Order Comment: Waived Testing in the ED is performed under the ED CLIA certificate #[id number].Result Comment: anuyitnPerformed By: #### [id number] ####[facility] ([facility])[address] [place], [place] [address]Xwbqkbo aminotransferase [Enzymatic activity/volume] in Serum or PlasmaOrdered By: Brook Huddleston on 87-85-5102XSI [Catalytic activity/Vol]Alanine aminotransferase [Enzymatic activity/volume] in Serum or Plasma7-52[facility] – JacksonAlbumin [Mass/volume] in Serum or Plasma by Bromocresol green (BCG) dye binding methoOrdered By: Brook Huddleston on 32-85-4165Zkpxhre BCG dye [Mass/Vol] Albumin [Mass/volume] in Serum or Plasma by Bromocresol green (BCG) dye binding metho3.5-5.7FChildren's Hospital for RehabilitationAlkaline phosphatase [Enzymatic activity/volume] in Serum or PlasmaOrdered By: Brook Huddleston on 04-76-7182KOX [Catalytic activity/Vol]Alkaline phosphatase [Enzymatic activity/volume] in Serum or ZlbywlWmfh66-669QioahgwiuHolzer Medical Center – JacksonAspartate aminotransferase [Enzymatic activity/volume] in Serum or PlasmaOrdered By: Brook Huddleston on 68-08-1599RHX [Catalytic activity/Vol]Aspartate aminotransferase [Enzymatic activity/volume] in Serum or Ebzxbf75-00NxkubbzflHolzer Medical Center – JacksonBasophils Auto (Bld) [#/Vol]Ordered By: Brook Huddleston on 24-60-7084Ltkmsvfao (Bld) [#/Vol]Automated basophil count0.0-0.2FChildren's Hospital for Rehabilitation Basophils/100 WBC Auto (Bld)Ordered By: Brook Huddleston on 22-10-8314Qqjstrclb/100 WBC (Bld)Automated basophil %.[facility] – JacksonBilirubin.total [Mass/volume] in Serum or PlasmaOrdered By: Brook Huddleston on 93-95-1467Qfslpltjd [Mass/Vol]Bilirubin.total [Mass/volume] in Serum or Plasma0.3-1.0[facility] Center – JacksonCB W Auto Differential panel (Bld)on 18-71-9645Bsetznwit (Bld) [#/Vol]0 10*3/uL0.0 - 0.2 10*3/uLNOMS HealthcareBasophils/100 WBC Manual cnt (Syn fld)0.3 %.[facility] HealthcareEosinophils (Bld) [#/Vol]0.4 10*3/uL0.0 - 0.45 10*3/uLNOMS HealthcareEosinophils/100 WBC Manual cnt (Syn fld)7 %.[facility] HospitalErythrocyte distribution width (RBC) [Ratio]16.8 %High12.0 - 14.8 % [facility] HospitalHematocrit (Bld) [Volume fraction]30.5 %Low38.8 - 50.0 %[facility] HospitalHemoglobin (Bld) [Mass/Vol]10.1 g/dLLow13.0 - 17.0 g/dLCooper County Memorial Hospital Interpretation and review of laboratory resultsAbnormalCooper County Memorial Hospital Lymphocytes (Bld) [#/Vol]0.7 10*3/uLLow1.00 - 4.8 10*3/uLNOThe Rehabilitation Institute Lymphocytes/100 WBC Manual cnt (Syn fld)13 %.[facility] CenterH (RBC) [Entitic mass]35.5 akElld15.5 - 35.2 pgSSM DePaul Health CenterHC (RBC) [Mass/Vol]33.1 g/dL32.5 - 35.6 g/dLCooper County Memorial HospitalMCV (RBC) [Entitic vol]107.2 mBQzpt11.5 - 101 fLACADIA HEALTHCARE HealthcareMonocytes (Bld) [#/Vol]0.4 10*3/uL0.0 - 0.8 10*3/uLNOMS Healthcare Monocytes+Macrophages/100 WBC Manual cnt (Syn fld)7.1 %.[facility] Healthcare Neutrophils (Bld) [#/Vol]4 10*3/uL1.8 - 7.7 10*3/uLNOMS Healthcare Neutrophils/100 WBC Manual cnt (Syn fld)72.6 %.NOMS HealthcareNRBC0.1 /100{WBC}0 - 0.5 /100{WBC}NOMS HealthcarePlatelet mean volume (Bld) [Entitic vol]8.1 fL6.6 - 10.1 fLACADIA HEALTHCARE HealthcarePlatelets (Bld) [#/Vol]183 10*3/uL150 - 450 10*3/uLNOMS HealthcareRBC LM.HPF (Urine sed) [#/Area]2.84 /[HPF]Low3.90 - 5.60NOMS Galion HospitalWBC (Bld) [#/Vol]5.5 10*3/uL4.1 - 10.5 10*3/uLNOMS HealthcareWBC LM.HPF (Urine sed) [#/Area]5.5 10*3/uL4.1 - 10.5 10*3/uLNOMS HealthcareNOUT HealthcareCalcium [Mass/volume] in Serum or PlasmaOrdered By: Brook Huddleston on 48-40-4736Prxgtak [Mass/Vol]Calcium [Mass/volume] in Serum or Plasma8.6-10.3 [facility] – JacksonCarbon dioxide, total [Moles/volume] in Serum or PlasmaOrdered By: Brook Huddleston on 00-58-5596NM2 [Moles/Vol]Carbon dioxide, total [Moles/volume] in Serum or Wgfwng83.0-31.0[facility] Chloride [Moles/volume] in Serum or PlasmaOrdered By: Brook Huddleston on 06-23-2024 Chloride [Moles/Vol]Chloride [Moles/volume] in Serum or WiwmwxPobr83-872 [facility] – JacksonComplete Blood Count Auto Diffon 06-23-2024 Basophils (Bld) [#/Vol]0.0 10*3/uLNormal0.0-0.2The [facility] Comment on above:Result Comment: PERFORMED BY: [place] [address] PATHOLOGIST DOCK SUPERINTENDENT MEAGAN HARDING M.D.Performed By: #### CMP, CBC #### [place] [address] USABasophils/100 WBC (Bld)0.3 %Normal.The [facility] Physician GroupComment on above:Performed By: #### CMP, CBC #### [place] [address] USAEosinophils (Bld) [#/Vol]0.4 10*3/uLNormal0.0-0.45The [facility] Physician GroupComment on above:Performed By: #### CMP, CBC #### [place] [address] USAEosinophils/100 WBC (Bld)7.0 %Normal.The [facility] Physician GroupComment on above:Performed By: #### CMP, CBC #### [place] [address] USAErythrocyte distribution width (RBC) [Ratio]16.8 %High 12.0-14.8The [facility] Physician GroupComment on above:Performed By: #### CMP, CBC #### [place] [address] USAHematocrit (Bld) [Volume fraction]30.5 %Low38.8-50.0The [facility] Physician GroupComment on above:Performed By: #### CMP, CBC #### [place] [address] USAHemoglobin (Bld) [Mass/Vol]10.1 g/dLLow13.0-17.0The [facility] Physician GroupComment on above:Performed By: #### CMP, CBC #### [place] [address] USALymphocytes (Bld) [#/Vol]0.7 10*3/uLLow1.00-4.8The [facility] Physician GroupComment on above:Performed By: #### CMP, CBC #### [place] [address] USALymphocytes/100 WBC (Bld)13.0 %Normal.The [facility] Physician GroupComment on above:Performed By: #### CMP, CBC #### [address] (RBC) [Entitic mass]35.5 qpHzjf46.5-35.2The [facility] Physician GroupComment on above:Performed By: #### CMP, CBC #### [address] (RBC) [Entitic vol]107.2 sUAidi62.5-101The [facility] Physician GroupComment on above:Performed By: #### CMP, CBC #### [place] [address] USAMean Corpuscular HGB Conc33.1 g/uDRrpkus35.5-35.6The [facility] Physician GroupComment on above:Performed By: #### CMP, CBC #### [place] [address] USAMonocytes (Bld) [#/Vol]0.4 10*3/uLNormal0.0-0.8The [facility] Physician GroupComment on above:Performed By: #### CMP, CBC #### [place] [address] USAMonocytes/100 WBC (Bld)7.1 %Normal.The [facility] Physician GroupComment on above:Performed By: #### CMP, CBC #### [place] [address] USANeutrophils (Bld) [#/Vol]4.0 10*3/uLNormal1.8-7.7The [facility] Physician GroupComment on above:Performed By: #### CMP, CBC #### [place] [address] USANeutrophils/100 WBC (Bld)72.6 %Normal.The [facility] Physician GroupComment on above:Performed By: #### CMP, CBC #### [place] [address] USANRBC%0.1 /100{WBC}Normal0-0.5The [facility] Comment on above:Performed By: #### CMP, CBC #### [place] [address] USAPlatelet mean volume (Bld) [Entitic vol]8.1 fLNormal 6.6-10.1The [facility] Physician GroupComment on above:Performed By: #### CMP, CBC #### [place] [address] USAPlatelets (Bld) [#/Vol]183 10*3/fZNeaqkt570-534Fdc [facility] GroupComment on above:Performed By: #### CMP, CBC #### [place] [address] USARBC (Bld) [#/Vol]2.84 10*6/uLLow3.90-5.60The [facility] GroupComment on above:Performed By: #### CMP, CBC #### [place] [address] USAWBC (Bld) [#/Vol]5.5 10*3/uLNormal4.1-10.5The [facility] GroupComment on above:Performed By: #### CMP, CBC #### [place] [address] USAComprehensive Metabolic Panelon [id number] [Mass/Vol]3.9 g/dLNormal3.5-5.7The [facility] GroupComment on above: Performed By: #### CMP, CBC #### [place] [address] USAAlbumin/Globulin [Mass ratio]1.6 {ratio}NormalThe [facility] Phys[facility] GroupComment on above:Performed By: #### CMP, CBC #### [facility] [address] [place] [address] USAALP [Catalytic activity/Vol]131 U/[id number] [facility] GroupComment on above:Performed By: #### CMP, CBC #### [facility] [address] [place] [address] USAALT [Catalytic activity/Vol]34 U/LNormal7-52The [facility] GroupComment on above:Performed By: #### CMP, CBC #### [facility] [address] [place] [address] USAAnion gap [Moles/Vol]11.1 mmol/LNormal6.0-15.0The [facility] GroupComment on above:Performed By: #### CMP, CBC #### [place] [address] USAAST [Catalytic activity/Vol]26 U/QRsoghj89-67Kyh [facility] Physician GroupComment on above:Performed By: #### CMP, CBC #### [place] [address] USABilirubin [Mass/Vol]0.5 mg/dLNormal0.3-1.0The [facility] Physician GroupComment on above:Performed By: #### CMP, CBC #### [place] [address] USACalcium [Mass/Vol]8.6 mg/dLNormal8.6-10.3The [facility] Physician GroupComment on above:Performed By: #### CMP, CBC #### [facility] [address] [place], [place] [address] USAChloride [Moles/Vol]108 mmol/FIlxs43-094Gbl [facility] Physician GroupComment on above:Performed By: #### CMP, CBC #### [facility] [address] [place] [address] USACO2 [Moles/Vol]23.7 mmol/QCzoonv45.0-31.0The [facility] Physician GroupComment on above:Performed By: #### CMP, CBC #### [place] [address] USACreatinine [Mass/Vol]2.29 mg/dLHigh0.70-1.30The [facility] Physician GroupComment on above:Performed By: #### CMP, CBC #### [place] [address] USACreatinine Clr Calc Dsbvxtdm91.52NoSelect Specialty Hospital - Winston-Salem Physician GroupComment on above:Result Comment: PERFORMED BY: [place] [address] PATHOLOGIST DOCK SUPERINTENDENT MEAGAN HARDING M.D.Performed By: #### CMP, CBC #### [place] [address] USAGFR/1.73 sq M.predicted MDRD (S/P/Bld) [Vol rate/Area] 28.327 mL/min/{1.73_m2}NormalThe [facility] Physician GroupComment on above: Performed By: #### CMP, CBC #### [place] [address] USAGlobulin (S) [Mass/Vol]2.4 g/dLNoSelect Specialty Hospital - Winston-Salem Physician GroupComment on above:Performed By: #### CMP, CBC #### [place] [address] USAGlucose [Mass/Vol]205 mg/nNWagk57-722Jte [facility] Physician GroupComment on above:Result Comment: Random Glucose Reference Range is dependent on time and content of last meal. Glucose of more than 200 mg/dL in a nonstressed, ambulatory subject supports the diagnosis of Diabetes Mellitus. ADA recommended reference rangePerformed By: #### CMP, CBC #### [place] [address] USAPotassium [Moles/Vol]4.8 mmol/LNormal3.5-5.1The [facility] Physician GroupComment on above:Performed By: #### CMP, CBC #### [place] [address] USAProtein [Mass/Vol]6.3 g/dLLow6.4-8.9The [facility] Physician GroupComment on above:Performed By: #### CMP, CBC #### [facility] [address] [place] [address] USASodium [Moles/Vol]138 mmol/QPebbvu194-033Bij [facility] Physician GroupComment on above:Performed By: #### CMP, CBC #### [facility] [address] [place] [address] USAUrea nitrogen [Mass/Vol]27 mg/dLHigh7-25The [facility] Physician GroupComment on above:Performed By: #### CMP, CBC #### [facility] [address] [place] [address] USAComprehensive metabolic panelon 06-56-6847Wkylxgm [Mass/Vol]3.9 g/dL3.5 - 5.7 g/dLNOMS HealthcareAlbumin/Globulin [Mass ratio]1.6 {ratio}NOMS HealthcareALP [Catalytic activity/Vol]131 U/LHigh34 - 104 U/LNOMS HealthcareALT [Catalytic activity/Vol]34 U/L7 - 52 U/LNOMS HealthcareAnion gap [Moles/Vol]11.1 mmol/L6.0 - 15.0NOMS HealthcareAST [Catalytic activity/Vol]26 U/L13 - 39 U/LNOMS HealthcareBilirubin [Mass/Vol]0.5 mg/dL0.3 - 1.0 mg/dLNOMS HealthcareCalcium [Mass/Vol]8.6 mg/dL8.6 - 10.3 mg/dLNOMS HealthcareChloride [Moles/Vol]108 mmol/LHigh98 - 107 mmol/LNOMS HealthcareCO2 [Moles/Vol]23.7 mmol/L21.0 - 31.0 mmol/LNOMS HealthcareCreatinine (U) [Mass/Vol]2.29 mg/dLHigh 0.70 - 1.30 mg/dLNOUT HealthcareCREATININE CLR CALC WESPEOQW03.52NOMS Healthcare GFR/1.73 sq M.predicted MDRD (S/P/Bld) [Vol rate/Area]28.327 mL/min/{1.73_m2} NOMS HealthcareGlobulin (S) [Mass/Vol]2.4 g/dLNOMS HealthcareGlucose [Mass/Vol] 205 mg/oYHetb05 - 100 mg/dLNOUT HealthcareComment on above:Random Glucose Reference Range is dependent on time and content of last meal. Glucose of more than 200 mg/dL in a nonstressed, ambulatory subject supports the diagnosis of Diabetes Mellitus. ADA recommended reference range Interpretation and review of laboratory resultsAbnormalNOUT HealthcarePotassium [Moles/Vol]4.8 mmol/L3.5 - 5.1 mmol/LNOMS HealthcareProtein [Mass/Vol]6.3 g/dL Low6.4 - 8.9 g/dLNOUT HealthcareSodium [Moles/Vol]138 mmol/L136 - 145 mmol/LNOMS HealthcareUrea nitrogen [Mass/Vol]27 mg/dLHigh7 - 25 mg/dLCooper County Memorial HospitalNOUT HealthcareCreatinine [Mass/volume] in Serum or PlasmaOrdered By: Brook Huddleston on 22-95-4856Fsxbiaeyem [Mass/Vol]Creatinine [Mass/volume] in Serum or PlasmaHigh 0.70-1.30[facility] – JacksonCreatinine [Mass/volume] in Urine Ordered By: Price Crain on 27-56-3825Ottoqspizs (U) [Mass/Vol]Creatinine [Mass/volume] in UrineHolzer Medical Center – JacksonEosinophils Auto (Bld) [#/Vol]Ordered By: Brook Huddleston on 73-04-8757Nysgpkucnxn (Bld) [#/Vol]Automated eosinophil count0.0-0.45[facility] – JacksonEosinophils/100 WBC Auto (Bld)Ordered By: Brook Huddleston on 88-85-9530Ynnewhcgdkl/100 WBC (Bld)Automated eosinophil %.[facility] – JacksonErythrocyte distribution width Auto (RBC) [Ratio]Ordered By: Brook Huddleston on 38-93-2021Koinljjsrci distribution width (RBC) [Ratio]Erythrocyte distribution width [Ratio] by Automated countHigh 12.0-14.8[facility] – JacksonGlobulin Calc (S) [Mass/Vol]Ordered By: Brook Huddleston on 47-14-0762Vfnivgah (S) [Mass/Vol]Serum globulin measurement by calculation (mass/volume)[facility] – JacksonGlucose [Mass/volume] in Serum or PlasmaOrdered By: Brook Huddleston on 79-21-6929Npfyjyh [Mass/Vol]Glucose [Mass/volume] in Serum or ZmlnlzJpmk34-426FclhnvrfwHolzer Medical Center – Jackson Hematocrit Auto (Bld) [Volume fraction]Ordered By: Brook Huddleston on 06-23-2024 Hematocrit (Bld) [Volume fraction]Hematocrit [Volume Fraction] of Blood by Automated mqtppWdu28.8-50.0[facility] – JacksonHemoglobin [Mass/volume] in BloodOrdered By: Brook Huddleston on 93-52-8816Fravrnhlbu (Bld) [Mass/Vol]Hemoglobin [Mass/volume] in JyoznSax02.0-17.0[facility] – JacksonLeukocytes [#/volume] corrected for nucleated erythrocytes in Blood by Automated counOrdered By: Brook Huddleston on 31-62-7441COQ corrected for nucl RBC Auto (Bld) [#/Vol]Leukocytes [#/volume] corrected for nucleated erythrocytes in Blood by Automated coun4.1-10.5FChildren's Hospital for Rehabilitation Lymphocytes Auto (Bld) [#/Vol]Ordered By: Brook Huddleston on 51-25-1564Fubieusbxsi (Bld) [#/Vol]Lymphocytes [#/volume] in Blood by Automated countLow1.00-4.8 [facility] – JacksonLymphocytes/100 WBC Auto (Bld)Ordered By: Brook Huddleston on 95-50-6148Ocxinivdzrt/100 WBC (Bld)Lymphocytes/100 leukocytes in Blood by Automated count.[facility] CenterH Auto (RBC) [Entitic mass]Ordered By: Brook Huddleston on 14-51-8255ZFM (RBC) [Entitic mass]MCH [Entitic mass] by Automated jfurpFwie70.5-35.2FChildren's Hospital for RehabilitationMCHC Auto (RBC) [Mass/Vol]Ordered By: Brook Huddleston on 62-88-5613AFHB (RBC) [Mass/Vol]MCHC [Mass/volume] by Automated count32.5-35.6FChildren's Hospital for RehabilitationMCV Auto (RBC) [Entitic vol]Ordered By: Brook Huddleston on 13-46-1001FSG (RBC) [Entitic vol]MCV [Entitic volume] by Automated jolnzSqfi44.5-101[facility] – JacksonMagnesiumon 92-70-0847Conbvtxps [Mass/Vol]2.2 mg/dLNormal1.9-2.7 The [facility] Physician GroupComment on above:Performed By: #### CMP, CBC #### [facility] [address] [place] [address] USAMagnesium [Mass/volume] in Serum or PlasmaOrdered By: Price Carin on 31-76-0534Zghdcpzrc [Mass/Vol]Magnesium [Mass/volume] in Serum or Plasma1.9-2.7FChildren's Hospital for RehabilitationMonocytes Auto (Bld) [#/Vol] Ordered By: Brook Huddleston on 69-50-6694Duzmxcukp (Bld) [#/Vol]Automated blood monocyte count0.0-0.8[facility] – JacksonMonocytes/100 WBC Auto (Bld)Ordered By: Brook Huddleston on 76-05-0502Evlfpyzic/100 WBC (Bld)Automated monocyte %.[facility] – JacksonNeutrophils Auto (Bld) [#/Vol] Ordered By: Brook Huddleston on 46-47-0863Fydbwlfolbw (Bld) [#/Vol]Neutrophils [#/volume] in Blood by Automated count1.8-7.7FChildren's Hospital for Rehabilitation Neutrophils/100 WBC Auto (Bld)Ordered By: Brook Huddleston on 19-83-9017Zebcppncpno/100 WBC (Bld)Automated neutrophil %.[facility] – JacksonNo Panel InformationOrdered By: Brook Huddleston on 64-40-944041.327 mL/MinHolzer Medical Center – Jackson29.52[facility] – JacksonNucleated erythrocytes [Presence] in Blood by Automated countOrdered By: Brook Huddleston on 06-23-2024 Nucleated RBC Auto Ql (Bld)Nucleated erythrocytes [Presence] in Blood by Automated count0-0.5FChildren's Hospital for RehabilitationParathyrin.intact [Mass/volume] in Serum or PlasmaOrdered By: Price Crain on 06-23-2024 Parathyrin.intact [Mass/Vol]Parathyrin.intact [Mass/volume] in Serum or Plasma 12Hol[facility] Center – JacksonParathyroid Hormone Intacton 06-23-2024 Parathyroid Hormone Bhffky52.4 pg/gYZgwktp80-83Krn [facility] Comment on above:Result Comment: PERFORMED BY: [place] [address] PATHOLOGIST DOCK SUPERINTENDENT MEAGAN HARDING M.D.Performed By: #### CMP, CBC #### [place] [address] USAPhosphate [Mass/volume] in Serum or PlasmaOrdered By: Price Crain on 47-89-6726Zasrlcnni [Mass/Vol]Phosphate [Mass/volume] in Serum or Plasma2.5-4.5FChildren's Hospital for RehabilitationPhosphoruson 52-79-2571Hdquzbekj [Mass/Vol]2.7 mg/dLNormal2.5-4.5The [facility] Physician GroupComment on above: Performed By: #### CMP, CBC #### [place] [address] USAPlatelet mean volume Auto (Bld) [Entitic vol]Ordered By: Brook Huddleston on 17-65-6319Hbptiron mean volume (Bld) [Entitic vol]Platelet mean volume [Entitic volume] in Blood by Automated count6.6-10.1FChildren's Hospital for RehabilitationPlatelets Auto (Bld) [#/Vol]Ordered By: Brook Huddleston on 06-23-2024 Platelets (Bld) [#/Vol]Platelets [#/volume] in Blood by Automated yvofr438-367 [facility] – JacksonPotassium [Moles/volume] in Serum or Plasma Ordered By: Brook Huddleston on 07-34-8396Jawbbckqg [Moles/Vol]Potassium [Moles/volume] in Serum or Plasma3.5-5.1FChildren's Hospital for RehabilitationProtein Creat Ratio Ur Randomon 15-07-7452Lknmjnkivq, Urine (Random)124.00 mg/dLNormLake City VA Medical Center Physician GroupComment on above:Result Comment: No reference range established Performed By: #### BMP #### [place] [address] USAProtein (U) [Mass/Vol]362 mg/dLHigh0-9The [facility] Physician GroupComment on above:Performed By: #### BMP #### [facility] [address] [place] [address] USAUrine Protein/Creatinine RatioNot performedNormal0-200The [facility] Physician GroupComment on above:Result Comment: PERFORMED BY: [place] [address] PATHOLOGIST DOCK SUPERINTENDENT MEAGAN HARDING M.D.Performed By: #### BMP #### [facility] [address] [place] [address] USAProtein [Mass/volume] in Serum or PlasmaOrdered By: Brook Huddleston on 25-98-1592Kochjba [Mass/Vol]Protein [Mass/volume] in Serum or PlasmaLow 6.4-8.9[facility] – JacksonProtein [Mass/volume] in UrineOrdered By: Price Crain on 87-13-8547Xcogtlj (U) [Mass/Vol]Protein [Mass/volume] in UrineHigh0-9[facility] – JacksonRBC Auto (Bld) [#/Vol]Ordered By: Brook Huddleston on 74-73-3484MWT (Bld) [#/Vol]Erythrocytes [#/volume] in Blood by Automated countLow3.90-5.60Toledo Hospitalerum or plasma albumin/globulin mass ratioOrdered By: Brook Huddleston on 36-56-5181Jwnyjmd/Globulin [Mass ratio]Serum or plasma albumin/globulin mass ratioToledo Hospitalerum or plasma anion gap determinationOrdered By: Brook Huddleston on 65-25-7228Yhthb gap [Moles/Vol]Serum or plasma anion gap determination6.0-15.0 [facility] Hospitalodium [Moles/volume] in Serum or PlasmaOrdered By: Brook Huddleston on 71-29-7424Bixxif [Moles/Vol]Sodium [Moles/volume] in Serum or Zkhqia319-167JutvjmghnHolzer Medical Center – JacksonUrate [Mass/volume] in Serum or PlasmaOrdered By: Price Crain on 45-17-8595Nzjid [Mass/Vol]Urate [Mass/volume] in Serum or Plasma4.4-7.6FChildren's Hospital for RehabilitationUrea nitrogen [Mass/volume] in Serum or PlasmaOrdered By: Brook Huddleston on 39-26-3924Vwbz nitrogen [Mass/Vol]Urea nitrogen [Mass/volume] in Serum or PlasmaHigh7-[facility] – JacksonUric Acidon 65-46-6428Oyopa [Mass/Vol]4.5 mg/dLNormal 4.4-7.6The [facility] Physician GroupComment on above:Performed By: #### CMP, CBC #### [facility] [address] [place] [id number] USAUrine protein/creatinine ratioOrdered By: Price Crain on 87-87-5368Bidtbzw/Creatinine (U) [Ratio]Urine protein/creatinine ratioHolzer Medical Center – JacksonVitamin D 25 Hydroxy Totalon 29-99-1390Syqckjg D 25 Hydroxy Total64.1 ng/xUCoezdi82-410Mmb [facility] Physician GroupComment on above:Result Comment: VITAMIN D STATUS 25(OH)VITAMIN D RANGE (ng/mL) Deficient <20 Insufficient 20 to <30 Sufficient 30 to 100 Reference: Dieudonne MF,Brendon GUERRA, Estrella CARTER, et al. Evaluation,treatment, and prevention of vitamin D deficiency; an Endocrine Society clinical practice guideline. JCEM. 2010; 96(7):1911-30. PERFORMED BY: [facility] [address] [place] [address] PATHOLOGIST DOCK SUPERINTENDENT MEAGAN HARDING M.D.Performed By: #### CMP, CBC #### [facility] [address] [place] [address] [facility]IL[facility]ATION HOSPITALVitamin D+Metabolites [Mass/volume] in Serum or Plasma Ordered By: Price Crain on 22-48-0583Ogyjxuo D+Metabolites [Mass/Vol]Vitamin D+Metabolites [Mass/volume] in Serum or Dlixjc92-418QwszsxrtiHolzer Medical Center – JacksonWBC Auto (Bld) [#/Vol]Ordered By: Brook Huddleston on 84-51-2602AWT (Bld) [#/Vol] Leukocytes [#/volume] in Blood by Automated count4.1-10.5FChildren's Hospital for RehabilitationAmbulatory Visit Summaryon 83-15-0750Xkhqvnojuw Visit Summary Ambulatory Visit Summary PATSY MILLS :1945 Visit Date:06/10/2024 Ambulatory Visit Instructions Your Diagnosis Prostate cancer Noncompliant bladder OAB (overactive bladder) Hydroureteronephrosis Ureteral stricture Incomplete bladder emptying Recurrent UTI Kidney stones BPH with urinary obstruction Family history of prostate cancer in father Your Care Team Attending Physician - Diego RICKS, Orquidea Taylor Primary Care Physician - HELEN OCHOA MD This Is Your Medications List nitrofurantoin (Macrobid 100 mg Cap) oxybutynin (oxybutynin 10 mg ER Tab) Contact prescribing physician if questions or concerns aspirin (aspirin 81 mg Chew Tab) atorvastatin (atorvastatin 20 mg Tab) bifidobacterium-lactobacillus (Probiotic + Colostrum) cholecalciferol (Vitamin D3 2000 [...] Follow-Up Appointments Thursday 12:30 PM EST With: Orzech MEAT CUTTING BLOCK REPAIRER, DERMATOLOGY NURSE-C, Makayla X Where: [facility] [address] [place] [address] [place] [address]- You Need to Schedule the Following Appointments Follow Up with Diego RICKS, Orquidea Taylor, OUSMANE, URO When: Where: Medications What How Much When Instructions Unchanged nitrofurantoin (Macrobid 100 mg Cap) 1 Capsules By Mouth 2 times a day take 1 cap morningof cath change and 12hrs after Unchanged oxybutynin (oxybutynin 10 mg ER Tab) 1 Tablets By Mouth Every day Unchanged aspirin (aspirin 81 mg Chew Tab) Chewed Every day Contact prescribing physician if questions or concerns Unchanged atorvastatin (atorvastatin 20 mg Tab) 1 Tablets By Mouth Every day Contact prescribing physician if questions or concerns Unchanged bifidobacterium-lactobacillus (Probiotic + Colostrum) By Mouth Every day [...] Cancer The prostate is (more content not included)...[facility] Urology Office/Clinic Noteon 42-12-0765Zsexqeg Office/Clinic NoteUrology Office/Clinic Note Chief Complaint path review HPI [...] and history for this patient from Dr. Issa. I have reviewed and verified the staff [...] recommendations of SP tube, stent, definitive care whichis more invasive (cystectomy). Hx of multiple myeloma [...] adenocarcinoma. Selene 7 (3+4), GG2. Only 6-10% ofGleason 4 present. 7 of 78 prostate chips involved. No adverse pathology. Decipher testing 08/27/22 - High genomic risk. Not ideal surgical candidate (prostatectomy) due to age, comorbidities. [1] MRI prostate 11/11/22 [facility] [place] volume 14 cc. Post intervention changes w/o definitive MRI evidence of prostate malignancy. Lesion seen involving the R ischial tuberosity measuring 1 cm. A bonymetastatic lesion cannot be excluded (recent bone survey [...] cysto, R RGP, sten (more content not included)...[facility] HospitalComment on above:Result Comment: Electronically Signed By: Orquidea Issa MD\.br\Date and Time Signed: 06/10/24 13:53EDT\.br\Electronically Co-Signed By: Valentina Sharp\.br\Date and Time Co-Signed: 06/10/24 12:23 EDTAlbumin [Mass/volume] in Serum or Plasma by Bromocresol green (BCG) dye binding metho Ordered By: Domonique Rahman on 29-54-9263Kbwloln BCG dye [Mass/Vol]3.7 g/dL3.5-5.7 [facility] – JacksonAlbumin BCG dye [Mass/Vol]Albumin [Mass/volume] in Serum or Plasma by Bromocresol green (BCG) dye binding metho3.5-5.7FChildren's Hospital for RehabilitationCalcium [Mass/volume] in Serum or PlasmaOrdered By: Domonique Rahman on 81-60-4242Uooxfbo [Mass/Vol]8.8 mg/dLNormal8.6-10.3FChildren's Hospital for RehabilitationComment on above:Order Comment: Comment Results to Dr. Nurformed By: #### CMP, CBC #### [facility] [address] [place] [address] USACalcium [Mass/Vol]Calcium [Mass/volume] in Serum or Plasma 8.6-10.3FChildren's Hospital for RehabilitationCarbon dioxide, total [Moles/volume] in Serum or PlasmaOrdered By: Domonique Rahman on 18-68-2283FM3 [Moles/Vol]24.7 mmol/L Kdqqhh51.0-31.0[facility] – JacksonComment on above:Order Comment: Comment Results to Dr. Nurformed By: #### CMP, CBC #### [facility] [address] [place] [address] USACO2 [Moles/Vol]Carbon dioxide, total [Moles/volume] in Serum or Fcpyub84.0-31.0[facility] – JacksonChloride [Moles/volume] in Serum or PlasmaOrdered By: Domonique Rahman on 29-87-4975Bpeugvbm [Moles/Vol]110 mmol/BNhzz47-432LnbxusirmHolzer Medical Center – JacksonComment on above:Order Comment: Comment Results to Dr. Nurformed By: #### CMP, CBC #### [facility] [address] [place] [address] USAChloride [Moles/Vol]Chloride [Moles/volume] in Serum or QxrvejWqha16-773CgomkkfeyHolzer Medical Center – JacksonCreatinine [Mass/volume] in Serum or PlasmaOrdered By: Domonique Rahman on 84-83-2471Snimrjoorv [Mass/Vol]2.30 mg/dLHigh0.70-1.30[facility] – JacksonComment on above:Order Comment: Comment Results to Dr. Nurformed By: #### CMP, CBC #### [facility] [address] [place] [address] USACreatinine [Mass/Vol]Creatinine [Mass/volume] in Serum or PlasmaHigh0.70-1.30[facility] – JacksonGlucose [Mass/volume] in Serum or PlasmaOrdered By: Domonique Rahman on 02-43-0299Dvflvfi [Mass/Vol]121 mg/dL Xdrx51-821Ealz[address]ql[address] [place], [place] [address]Comment on above:ADA recommended reference rangeRandom Glucose Reference Range is dependent on time and content of last meal. Glucose of more than 200 mg/dL in a nonstressed, ambulatory subject supports the diagnosisof Diabetes Mellitus.Order Comment: Comment Results to Dr. Schwartz Comment: Random Glucose Reference Range is dependent on time and content of last meal. Glucose of more than 200 mg/dL in a nonstressed, ambulatory subject supports the diagnosis of Diabetes Mellitus. ADA recommended reference rangePerformed By: #### CMP, CBC #### [facility] [address] [place] [address] USAGlucose [Mass/Vol]Glucose [Mass/volume] in Serum or Plasma Wogy41-114DrqfmujzqHolzer Medical Center – JacksonNo Panel InformationOrdered By: Domonique Rahman on 15-39-8975Nsqfsygpe GFR (CKD-EPI)28.179 mL/MinHolzer Medical Center – JacksonPharmacy Creatinine Clearance (ChemN/[facility]28.179 mL/[facility] EastN/[facility] Memorial HospitalPhosphate [Mass/volume] in Serum or PlasmaOrdered By: Domonique Rahman on 09-61-3112Ppgduvuex [Mass/Vol]3.5 mg/dLNormal2.5-4.5FChildren's Hospital for RehabilitationComment on above:Order Comment: Comment Results to Dr. Crain Performed By: #### CMP, CBC #### [facility] [address] [place] [address] USAPhosphate [Mass/Vol]Phosphate [Mass/volume] in Serum or Plasma2.5-4.5FChildren's Hospital for RehabilitationPotassium [Moles/volume] in Serum or PlasmaOrdered By: Domonique Rahman on 19-40-4697Wjvldosta [Moles/Vol]4.7 mmol/L Normal3.5-5.1FChildren's Hospital for RehabilitationComment on above:Order Comment: Comment Results to Dr. Nurformed By: #### CMP, CBC #### [place] [id number] USAPotassium [Moles/Vol]Potassium [Moles/volume] in Serum or Plasma3.5-5.1FChildren's Hospital for RehabilitationRenal Function Panelon 06-08-2024 Albumin [Mass/Vol]3.7 g/dLNormal3.5-5.7The [facility] Physician GroupComment on above:Order Comment: Comment Results to Dr. Schwartz Comment: PERFORMED BY: [place] [address] PATHOLOGIST DOCK SUPERINTENDENT MEAGAN HARDING M.D.Performed By: #### CMP, CBC #### [place] [address] USAGFR/1.73 sq M.predicted MDRD (S/P/Bld) [Vol rate/Area] 28.179 mL/min/{1.73_m2}NormalThe [facility] Physician [facility] Hospital Of MeridianComment on above:Order Comment: Comment Results to Dr. Nurformed By: #### CMP, CBC #### [place] [id number] USASerum or plasma anion gap determinationOrdered By: Domonique Rahman on 13-51-2255Odovc gap [Moles/Vol]10.0 mmol/LNormal6.0-15.0[facility] – JacksonComment on above:Order Comment: Comment Results to Dr. Nurformed By: #### CMP, CBC #### [address] [address] USAAnion gap [Moles/Vol]Serum or plasma anion gap determination6.0-15.0Toledo Hospitalodium [Moles/volume] in Serum or PlasmaOrdered By: Domonique Josiah on 57-71-6652Ewdzak [Moles/Vol]140 mmol/L Fulytb500-938CpnpvpeypHolzer Medical Center – JacksonComment on above:Order Comment: Comment Results to Dr. BakhousPerformed By: #### CMP, CBC #### [facility] [address] [place] [address] USASodium [Moles/Vol]Sodium [Moles/volume] in Serum or Plasma 136-145Hol[facility] Medical Center – JacksonUrea nitrogen [Mass/volume] in Serum or PlasmaOrdered By: Domonique Rahman on 73-08-7065Bref nitrogen [Mass/Vol]36 mg/dLHigh 03-10[facility] – JacksonComment on above:Order Comment: Comment Results to Dr. Nurformed By: #### CMP, CBC #### [facility] [address] [place] [address] USAUrea nitrogen [Mass/Vol]Urea nitrogen [Mass/volume] in Serum or PlasmaHigh03-10[facility] – JacksonBasic Metabolic Panelon 17-08-2336Ubcwncfcgu Clr Calc Qekohhsd49.26NoSelect Specialty Hospital - Winston[facility]Salem Physician Group Comment on above:Result Comment: PERFORMED BY: [place] [address] PATHOLOGIST DOCK SUPERINTENDENT MEAGAN HARDING M.D.Performed By: #### RENAL, MG, PROCRERAT, CBCNO, URIC #### [address] [address] USAGFR/1.73 sq M.predicted MDRD (S/P/Bld) [Vol rate/Area] 20.903 mL/min/{1.73_m2}NormalThe [facility] Physician GroupComment on above: Performed By: #### RENAL, MG, PROCRERAT, CBCNO, URIC #### [facility] [address] [place] [address] USACalcium [Mass/volume] in Serum or PlasmaOrdered By: Mayda Matthews on 74-61-4302Fvtcktp [Mass/Vol]8.5 mg/dLLow8.6-10.3FChildren's Hospital for RehabilitationComment on above:Performed By: #### RENAL, MG, PROCRERAT, CBCNO, URIC #### [facility] [address] [place] [address] USACalcium [Mass/Vol]Calcium [Mass/volume] in Serum or Plasma Low8.6-10.3FChildren's Hospital for RehabilitationCapillary blood glucose measurement by glucometer (mass/volume)Ordered By: Mayda Matthews on 17-60-9851Avoesrn [Mass/Vol]160 mg/dLNormMedina HospitalComment on above: Random Glucose Reference Range is dependent on time and content of last meal. Glucose of more than 200 mg/dL in a nonstressed, ambulatory subject supports the diagnosis of Diabetes Mellitus.Result Comment: Random Glucose Reference Range is dependent on time and content of last meal. Glucose of more than 200 mg/dL in a nonstressed, ambulatory subject supports the diagnosis of Diabetes Mellitus. PERFORMED BY: [place] [address] PATHOLOGIST DOCK SUPERINTENDENT MEAGAN HARDING M.D.Performed By: #### CMP, CBC #### [facility] [address] [place] [address] USACarbon dioxide, total [Moles/volume] in Serum or Plasma Ordered By: Mayda Matthews on 33-85-1902NU9 [Moles/Vol]23.3 mmol/LNormal 21.0-31.0[facility] – JacksonComment on above:Performed By: #### RENAL, MG, PROCRERAT, CBCNO, URIC #### [facility] [address] [place] [address] USACO2 [Moles/Vol]Carbon dioxide, total [Moles/volume] in Serum or Anwduv19.0-31.0[facility] – JacksonChloride [Moles/volume] in Serum or PlasmaOrdered By: Mayda Matthews on 74-59-8704Xzbutmow [Moles/Vol] 109 mmol/YGsbs76-308Qpoqixoxu[address] [place], [place] [address]Comment on above:Performed By: #### RENAL, MG, PROCRERAT, CBCNO, URIC #### [facility] [address] [place] [address] USAChloride [Moles/Vol]Chloride [Moles/volume] in Serum or IlrfxgWamb20-503XkeyqalmxHolzer Medical Center – JacksonCreatinine [Mass/volume] in Serum or PlasmaOrdered By: Obfrankidah Daromar on 02-46-8848Ipkrbuelvj [Mass/Vol] 2.95 mg/dLHigh0.70-1.30[facility] – JacksonComment on above: Performed By: #### RENAL, MG, PROCRERAT, CBCNO, URIC #### [facility] [address] [place] [address] USACreatinine [Mass/Vol]Creatinine [Mass/volume] in Serum or PlasmaHigh0.70-1.30[facility] – JacksonErythrocyte distribution width Auto (RBC) [Ratio]Ordered By: Obfrankidanew Headleyomar on 35-12-0295Pizfojroicx distribution width (RBC) [Ratio]Erythrocyte distribution width [Ratio] by Automated wffzaFlpa51.0-14.8[facility] – JacksonErythrocyte distribution width [Ratio] by Automated countOrdered By: Mayda Headleyomar on 87-46-4155Teswoszmubn distribution width (RBC) [Ratio]16.5 %High12.0-14.8 [facility] – JacksonComment on above:Performed By: #### RENAL, MG, PROCRERAT, CBCNO, URIC #### [facility] [address] [place] [address] USAErythrocytes [#/volume] in Blood by Automated countOrdered By: Mayda Headleyomar on 30-70-5774ZLB (Bld) [#/Vol]2.68 10*6/uLLow3.90-5.60 [facility] – JacksonComment on above:Performed By: #### RENAL, MG, PROCRERAT, CBCNO, URIC #### [facility] [address] [place] [address] USAGlucose Glucometer (BldC) [Mass/Vol]Ordered By: Mayda Senr on 65-22-8666Wfwdgoa [Mass/Vol]Capillary blood glucose measurement by glucometer (mass/volume)[facility] – JacksonGlucose Poct Glucometerson 45-38-8343Wuqxewk5Xqv4: Cleaned [facility] Physician GroupComment on above:Result Comment: PERFORMED BY: [facility] [place] [address] PATHOLOGIST DOCK SUPERINTENDENT MEAGAN HARDING M.D.Performed By: #### CMP, CBC #### [place] [address] USAGlucose [Mass/Vol]117 mg/dLTampa Shriners Hospital Physician GroupComment on above:Result Comment: Random Glucose Reference Range is dependent on time and content of last meal. Glucose of more than 200 mg/dL in a nonstressed, ambulatory subject supports the diagnosis of Diabetes Mellitus.Performed By: #### CMP, CBC #### [place] [address] WSBHqkqirx4Xus7: Cleaned MeterNoSelect Specialty Hospital - Winston-Salem Physician GroupComment on above:Result Comment: PERFORMED BY: [place] [address] PATHOLOGIST DOCK SUPERINTENDENT MEAGAN HARDING M.D.Performed By: #### GLULS #### Point of Care testing ,Glucose [Mass/Vol]62 mg/dLNoSelect Specialty Hospital - Winston-Salem Physician GroupComment on above: Result Comment: Random Glucose Reference Range is dependent on time and content of last meal. Glucose of more than 200 mg/dL in a nonstressed, ambulatory subject supports the diagnosis of Diabetes Mellitus.Performed By: #### GLULS #### Point of Care testing ,Glucose [Mass/volume] in Serum or PlasmaOrdered By: Mayda Matthews on 75-89-2879Qcgooet [Mass/Vol]65 mg/qYAig05-630SwjhekrpdHolzer Medical Center – Jackson Comment on above:ADA recommended reference rangeRandom Glucose Reference Range is dependent on time and content of last meal. Glucose of more than 200 mg/dL in a nonstressed, ambulatory subject supports the diagnosisof Diabetes Mellitus. Result Comment: Random Glucose Reference Range is dependent on time and content of last meal. Glucose of more than 200 mg/dL in a nonstressed, ambulatory subject supports the diagnosis of Diabetes Mellitus. ADA recommended reference rangePerformed By: #### RENAL, MG, PROCRERAT, CBCNO, URIC #### [facility] [address] [place] [address] USAGlucose [Mass/Vol]Glucose [Mass/volume] in Serum or Plasma Uwl58-447TdjwtloliHolzer Medical Center – JacksonHematocrit Auto (Bld) [Volume fraction]Ordered By: Yasemindanew Headleyomar on 11-88-8442Ghnyfqjumd (Bld) [Volume fraction]Hematocrit [Volume Fraction] of Blood by Automated xewdoOia07.8-50.0 [facility] – JacksonHematocrit [Volume Fraction] of Blood by Automated countOrdered By: Obrfankidanew Headleyomar on 87-71-2257Fxfsovqjmq (Bld) [Volume fraction]27.9 %Low38.8-50.0[facility] – JacksonComment on above: Performed By: #### RENAL, MG, PROCRERAT, CBCNO, URIC #### [facility] [address] [place] [address] USAHemoglobin [Mass/volume] in BloodOrdered By: Mayda Senr on 95-82-7144Tmarhfwrry (Bld) [Mass/Vol]9.4 g/dLLow13.0-17.0[facility] – JacksonComment on above:Performed By: #### RENAL, MG, PROCRERAT, CBCNO, URIC #### [facility] [address] [place] [address] USAHemoglobin (Bld) [Mass/Vol]Hemoglobin [Mass/volume] in VktmcKru95.0-17.0[facility] – JacksonHemogram CBC Without Diffon 68-00-9726Nzqb Corpuscular HGB Conc33.7 g/eYAfarcl86.5-35.6The [facility] Physician GroupComment on above:Performed By: #### RENAL, MG, PROCRERAT, CBCNO, URIC #### [facility] [address] [place] [address] USAWBC (Bld) [#/Vol]5.0 10*3/uLNormal4.1-10.5The [facility] Physician GroupComment on above:Performed By: #### RENAL, MG, PROCRERAT, CBCNO, URIC #### [facility] [address] [place] [id number] USALeukocytes [#/volume] corrected for nucleated erythrocytes in Blood by Automated counOrdered By: Obfrankidanew Headleyomar on 79-72-5705LXM corrected for nucl RBC Auto (Bld) [#/Vol]5.0 10*3/uL4.1-10.5FChildren's Hospital for RehabilitationWBC corrected for nucl RBC Auto (Bld) [#/Vol]Leukocytes [#/volume] corrected for nucleated erythrocytes in Blood by Automated coun4.1-10.5 [facility] Auto (RBC) [Entitic mass]Ordered By: Obfrankidanew Headleyomar on 89-76-7549AAZ (RBC) [Entitic mass]MCH [Entitic mass] by Automated count27.5-35.2FProvidence Hospital [Entitic mass] by Automated countOrdered By: Obfrankidanew Headleyomar on 93-23-9665MYH (RBC) [Entitic mass] 35.2 uzYnvwug97.5-35.2FChildren's Hospital for RehabilitationComment on above: Performed By: #### RENAL, MG, PROCRERAT, CBCNO, URIC #### [facility] [address] Auto (RBC) [Mass/Vol]Ordered By: Mayda Headleyomar on 99-57-5095QDJU (RBC) [Mass/Vol]33.7 g/dL32.5-35.6FJoint Township District Memorial Hospital (RBC) [Mass/Vol]MCHC [Mass/volume] by Automated count32.5-35.6 [facility] Auto (RBC) [Entitic vol]Ordered By: Yasemindanew Headleyomar on 92-77-9941CDD (RBC) [Entitic vol]MCV [Entitic volume] by Automated ttszvJozc34.5101C[facility] Hospital Medical CenterV [Entitic volume] by Automated countOrdered By: Obfrankidanew Headleyomar on 72-77-1977UAA (RBC) [Entitic vol] 104.[address]UF[address]th42[address]5-[address] [place], [place] [address]Comment on above:Performed By: #### RENAL, MG, PROCRERAT, CBCNO, URIC #### [facility] [address] [place] [id number] USANo Panel InformationOrdered By: Mayda Matthews on 79-84-8424Qlpkidc Glucose CommentGlu2: cleaned [facility] HospitalGlu2: cleaned [facility] HospitalEstimated GFR (CKD-EPI)20.903 mL/[facility]Ph[facility] Creatinine Clearance (Chem23.26[facility]20.903 mL/[facility]23.26[facility] – JacksonPlatelet mean volume Auto (Bld) [Entitic vol]Ordered By: Mayda Matthews on 99-83-6436Sbqbynfq mean volume (Bld) [Entitic vol]Platelet mean volume [Entitic volume] in Blood by Automated count6.6-10.1FChildren's Hospital for RehabilitationPlatelet mean volume [Entitic volume] in Blood by Automated countOrdered By: Mayda Senr on 27-70-7255Eufsulxs mean volume (Bld) [Entitic vol]8.1 fLNormal6.6-10.1FChildren's Hospital for RehabilitationComment on above:Result Comment: PERFORMED BY: [place] [address] PATHOLOGIST DOCK SUPERINTENDENT MEAGAN HARDING M.D.Performed By: #### RENAL, MG, PROCRERAT, CBCNO, URIC #### [facility] [address] [place] [address] USAPlatelets Auto (Bld) [#/Vol]Ordered By: Mayda Matthews on 31-30-6381Nqnxgybav (Bld) [#/Vol]Platelets [#/volume] in Blood by Automated xqpexCwl320-359YjgywvfjtHolzer Medical Center – JacksonPlatelets [#/volume] in Blood by Automated countOrdered By: Mayda Headleyomar on 56-86-1505Wuridwnup (Bld) [#/Vol] 145 10*3/fUGmh396-372UsoajgxbjHolzer Medical Center – JacksonComment on above:Performed By: #### RENAL, MG, PROCRERAT, CBCNO, URIC #### [facility] [address] [place] [id number] USAPotassium [Moles/volume] in Serum or PlasmaOrdered By: Obaydah Daromar on 46-29-4346Rjtxubyox [Moles/Vol]4.3 mmol/LNormal3.5-5.1 [facility] – JacksonComment on above:Performed By: #### RENAL, MG, PROCRERAT, CBCNO, URIC #### [facility] [address] [place] [id number] USAPotassium [Moles/Vol]Potassium [Moles/volume] in Serum or Plasma3.5-5.1FChildren's Hospital for RehabilitationRBC Auto (Bld) [#/Vol]Ordered By: Obfrankidanew Headleyomar on 26-99-0296SRS (Bld) [#/Vol]Erythrocytes [#/volume] in Blood by Automated countLow3.90-5.60Toledo Hospitalerum or plasma anion gap determinationOrdered By: Obfrankidah Daromar on 03-46-5093Bmqxb gap [Moles/Vol]11.0 mmol/LNormal6.0-15.0[facility] – JacksonComment on above:Performed By: #### RENAL, MG, PROCRERAT, CBCNO, URIC #### [facility] [address] [place] [address] USAAnion gap [Moles/Vol]Serum or plasma anion gap determination6.0-15.0[facility]edo Hospitalodium [Moles/volume] in Serum or PlasmaOrdered By: Obaydah Daromar on 34-34-5782Nigfkd [Moles/Vol]139 mmol/ZUlephz049-210VjxalrgifHolzer Medical Center – JacksonComment on above:Performed By: #### RENAL, MG, PROCRERAT, CBCNO, URIC #### [facility] [address] [place] [id number] USASodium [Moles/Vol]Sodium [Moles/volume] in Serum or Plasma 136-145[facility] – JacksonUrea nitrogen [Mass/volume] in Serum or PlasmaOrdered By: Obaydah Daromar on 70-29-0493Hysi nitrogen [Mass/Vol]43 mg/dL [address]Comment on above:Performed By: #### RENAL, MG, PROCRERAT, CBCNO, URIC #### [facility] [address] [place] [address] USAUrea nitrogen [Mass/Vol]Urea nitrogen [Mass/volume] in Serum or Plasma98 Reyes StreetAutomated basophil % Ordered By: Tank Norman on 66-30-0293Ywsxovnua/100 WBC (Bld)0.1 %Normal. [facility] – JacksonComment on above:Performed By: #### GLULS #### Point of Care testing ,Automated basophil countOrdered By: Tank Norman on 62-86-6056Edjhmwgio (Bld) [#/Vol]0.0 10*3/uLNormal0.0-0.2FChildren's Hospital for RehabilitationComment on above:Result Comment: PERFORMED BY: [facility] [address] [place] [address] PATHOLOGIST DOCK SUPERINTENDENT MEAGAN HARDING M.D.Performed By: #### GLULS #### Point of Care testing ,Automated blood monocyte countOrdered By: Tank Norman on 06-04-2024 Monocytes (Bld) [#/Vol]0.6 10*3/uLNormal0.0-0.8[facility] Comment on above:Performed By: #### GLULS #### Point of Care testing ,Automated eosinophil %Ordered By: Tank Norman on 06-04-2024 Eosinophils/100 WBC (Bld)4.6 %Normal.[facility] – JacksonComment on above:Performed By: #### GLULS #### Point of Care testing ,Automated eosinophil countOrdered By: Tank Norman on 06-04-2024 Eosinophils (Bld) [#/Vol]0.3 10*3/uLNormal0.0-0.45[facility] – JacksonComment on above:Performed By: #### GLULS #### Point of Care testing ,Automated monocyte %Ordered By: Tank Norman on 75-92-0328Iwxyogyaw/100 WBC (Bld)8.6 %Normal.[facility] – JacksonComment on above:Performed By: #### GLULS #### Point of Care testing ,Automated neutrophil %Ordered By: Tank Ester on 06-04-2024 Neutrophils/100 WBC (Bld)78.9 %Normal.[facility] – JacksonComment on above:Performed By: #### GLULS #### Point of Care testing ,Basic Metabolic Panelon 10-46-4468Clkve gap [Moles/Vol]13.0 mmol/LNormal 6.0-15.0The [facility] Physician GroupComment on above:Performed By: #### BMP #### [facility] [address] [place] [address] USACalcium [Mass/Vol]8.8 mg/dLNormal8.6-10.3The [facility] Physician GroupComment on above:Performed By: #### BMP #### [facility] [address] [place] [address] USAChloride [Moles/Vol]108 mmol/SJjrk49-613Cqa [facility] Physician [facility] Hospital Of MeridianComment on above:Performed By: #### BMP #### [facility] [address] [place] [address] USACO2 [Moles/Vol]23.1 mmol/FCdaevl74.0-31.0The [facility] Physician GroupComment on above:Performed By: #### BMP #### [facility] [address] [place] [address] USACreatinine [Mass/Vol]3.13 mg/dLHigh0.70-1.30The [facility] Physician GroupComment on above:Performed By: #### BMP #### [facility] [address] [place] [address] USACreatinine Clr Calc Natjsosp49.98NormalThe [facility] Physician GroupComment on above:Result Comment: PERFORMED BY: [place] [address] PATHOLOGIST DOCK SUPERINTENDENT MEAGAN HARDING M.D.Performed By: #### BMP #### [facility] [address] [place] [address] USAGFR/1.73 sq M.predicted MDRD (S/P/Bld) [Vol rate/Area] 19.469 mL/min/{1.73_m2}NormalThe [facility] Physician GroupComment on above: Performed By: #### BMP #### [place] [address] USAGlucose [Mass/Vol]120 mg/nLCndb41-050Viy [facility] Physician GroupComment on above:Result Comment: Random Glucose Reference Range is dependent on time and content of last meal. Glucose of more than 200 mg/dL in a nonstressed, ambulatory subject supports the diagnosis of Diabetes Mellitus. ADA recommended reference rangePerformed By: #### BMP #### [place] [address] USAPotassium [Moles/Vol]5.1 mmol/LNormal3.5-5.1The [facility] Physician GroupComment on above:Performed By: #### BMP #### [place] [address] USASodium [Moles/Vol]139 mmol/AGynorn528-862Jre [facility] Physician GroupComment on above:Performed By: #### BMP #### [place] [address] USAUrea nitrogen [Mass/Vol]41 mg/dLHigh7-25The [facility] Physician GroupComment on above:Performed By: #### BMP #### [place] [address] USABasophils Auto (Bld) [#/Vol]Ordered By: Tank Norman on 89-08-9442Twpwivlna (Bld) [#/Vol]Automated basophil count0.0-0.2FChildren's Hospital for RehabilitationBasophils/100 WBC Auto (Bld)Ordered By: Tank Norman on 05-43-9631Abcflgxtu/100 WBC (Bld)Automated basophil %.[facility] – JacksonComplete Blood Count Auto Diffon 66-44-5642Qwvtygprtdg distribution width (RBC) [Ratio]16.3 %High12.0-14.8The [facility] Physician [facility] Comment on above:Performed By: #### GLULS #### Point of Care testing ,Hematocrit (Bld) [Volume fraction]27.7 %Low38.8-50.0The [facility] Physician GroupComment on above:Performed By: #### GLULS #### Point of Care testing ,Hemoglobin (Bld) [Mass/Vol]9.5 g/dLLow13.0-17.0The [facility] Comment on above:Performed By: #### GLULS #### Point of Care testing ,MCH (RBC) [Entitic mass]35.7 iqAcfs72.5-35.2The [facility] Comment on above:Performed By: #### GLULS #### Point of Care testing ,MCV (RBC) [Entitic vol]104.3 aMCufd86.5-101The [facility] Physician GroupComment on above:Performed By: #### GLULS #### Point of Care testing ,Mean Corpuscular HGB Conc34.2 g/dWBljuei82.5-35.6The [facility] Physician [facility] Comment on above:Performed By: #### GLULS #### Point of Care testing ,NRBC%0.1 /100{WBC}Normal0-0.5The [facility] Physician GroupComment on above: Performed By: #### GLULS #### Point of Care testing ,Platelet mean volume (Bld) [Entitic vol]8.0 fLNormal6.6-10.1The [facility] Physician GroupComment on above:Performed By: #### GLULS #### Point of Care testing ,Platelets (Bld) [#/Vol]139 10*3/mJRhl733-019Orn [facility] Comment on above:Performed By: #### GLULS #### Point of Care testing ,RBC (Bld) [#/Vol]2.66 10*6/uLLow3.90-5.60The [facility] Physician GroupComment on above:Performed By: #### GLULS #### Point of Care testing ,Eosinophils Auto (Bld) [#/Vol]Ordered By: Tank Norman on 06-04-2024 Eosinophils (Bld) [#/Vol]Automated eosinophil count0.0-0.45[facility] – JacksonEosinophils/100 WBC Auto (Bld)Ordered By: Tank Norman on 67-19-1506Diunlbsryvm/100 WBC (Bld)Automated eosinophil %.[facility] – JacksonFL urethrocystogram retroon 62-40-4156SB urethrocystogram retro [facility] [place] [address] Fluoroscopy Report Signed Patient: Patsy Mills MR#: [id number] : 1945 Acct:[id number] Age/Sex: 79 / M ADM Date: 06/02/24 Loc: Room: [address] [place] [address] Type: ADM IN Attending Dr: Mayda Matthews MD Copies to: MD Mayda Heller MD Ordering Provider: Orquidea Issa MD Date of Service: 06/04/24 FL/FL urethrocystogram retro: . LEFT RETROGRADE UROGRAM - 6 images CLINICAL DATA: Left hydronephrosis on recent CT COMPARISON: CT 06/02/2024 Multiple spot views of the abdomen and pelvis were obtained before, during and after injection of contrast into the distal left ureter. The initial image shows a right internal ureteral stent. There is a wire passed up to the proximal portion of the left ureter. On subsequent images there is injection of contrast into the distal left ureter where there is dilatation. The wire is further advanced into the collecting system. The collecting system is never fully opacified for evaluation. An internal ureteral stent was subsequently placed on that side. Cumulative Air Kerma in mGy: 7 mGy Impression dictated by: Lilliana Clemente M.D.06/04/2024 1:58 PM Dictation Location: [place] [address] Transcribed By: [facility] 06/04/24 1358 Dictated By: Lilliana Clemente MD 06/04/24 1356 Signed By: 06/04/24 1358[facility] Physician GroupGlucose Poct Glucometerson 44-01-9371Uuqtucq9Twq3: Cleaned MeterTampa Shriners Hospital Physician GroupComment on above:Result Comment: PERFORMED BY: [place] [address] PATHOLOGIST DOCK SUPERINTENDENT MEAGAN HARDING M.D.Performed By: #### GLULS #### Point of Care testing ,Glucose [Mass/Vol]208 mg/dLNoSelect Specialty Hospital - Winston-Salem Physician GroupComment on above: Result Comment: Random Glucose Reference Range is dependent on time and content of last meal. Glucose of more than 200 mg/dL in a nonstressed, ambulatory subject supports the diagnosis of Diabetes Mellitus.Performed By: #### GLULS #### Point of Care testing ,Glucose [Mass/Vol]118 mg/dLNoSelect Specialty Hospital - Winston-Salem Physician GroupComment on above: Result Comment: Random Glucose Reference Range is dependent on time and content of last meal. Glucose of more than 200 mg/dL in a nonstressed, ambulatory subject supports the diagnosis of Diabetes Mellitus. PERFORMED BY: [place] [phone] PATHOLOGIST DOCK SUPERINTENDENT MEAGAN HARDING M.D.Performed By: #### RENAL, MG, PROCRERAT, CBCNO, URIC #### [place] [address] USAGlucose [Mass/Vol]179 mg/dLNoSelect Specialty Hospital - Winston-Salem Physician GroupComment on above:Result Comment: Random Glucose Reference Range is dependent on time and content of last meal. Glucose of more than 200 mg/dL in a nonstressed, ambulatory subject supports the diagnosis of Diabetes Mellitus. PERFORMED BY: [place] [address] PATHOLOGIST DOCK SUPERINTENDENT MEAGAN HARDING M.D.Performed By: #### GLULS #### Point of Care testing ,Glucose [Mass/Vol]102 mg/dLTampa Shriners Hospital Physician GroupComment on above: Result Comment: Random Glucose Reference Range is dependent on time and content of last meal. Glucose of more than 200 mg/dL in a nonstressed, ambulatory subject supports the diagnosis of Diabetes Mellitus. PERFORMED BY: [place] [address] PATHOLOGIST DOCK SUPERINTENDENT MEAGAN HARDING M.D.Performed By: #### GLULS #### Point of Care testing ,Leukocytes [#/volume] in Blood by Automated countOrdered By: Tank Norman on 05-84-2920EOE (Bld) [#/Vol]6.5 10*3/uLNormal4.1-10.5FChildren's Hospital for RehabilitationComment on above:Performed By: #### GLULS #### Point of Care testing ,Lymphocytes Auto (Bld) [#/Vol]Ordered By: Tank Norman on 06-04-2024 Lymphocytes (Bld) [#/Vol]Lymphocytes [#/volume] in Blood by Automated countLow 1.00-4.8[facility] – JacksonLymphocytes [#/volume] in Blood by Automated countOrdered By: Tank Norman on 11-56-3506Ntnyjzzxwds (Bld) [#/Vol]0.5 10*3/uLLow1.00-4.8[facility] – JacksonComment on above: Performed By: #### GLULS #### Point of Care testing ,Lymphocytes/100 WBC Auto (Bld)Ordered By: Tank Norman on 06-04-2024 Lymphocytes/100 WBC (Bld)Lymphocytes/100 leukocytes in Blood by Automated count. [facility] – JacksonLymphocytes/100 leukocytes in Blood by Automated countOrdered By: Tank Norman on 64-49-5918Jbzhcqbjipe/100 WBC (Bld)7.8 %Normal.[facility] – JacksonComment on above:Performed By: #### GLULS #### Point of Care testing ,Monocytes Auto (Bld) [#/Vol]Ordered By: Tank Norman on 06-04-2024 Monocytes (Bld) [#/Vol]Automated blood monocyte count0.0-0.8[facility] – JacksonMonocytes/100 WBC Auto (Bld)Ordered By: Tank Norman on 58-17-1680Jpxiwgfwf/100 WBC (Bld)Automated monocyte %.[facility] – JacksonNeutrophils Auto (Bld) [#/Vol]Ordered By: Tank Norman on 66-39-0698Szykfrzdetx (Bld) [#/Vol]Neutrophils [#/volume] in Blood by Automated count1.8-7.7FChildren's Hospital for RehabilitationNeutrophils [#/volume] in Blood by Automated countOrdered By: Tank Norman on 22-83-4527Cvylgsubhiq (Bld) [#/Vol]5.1 10*3/uLNormal1.8-7.7FChildren's Hospital for RehabilitationComment on above:Performed By: #### GLULS #### Point of Care testing ,Neutrophils/100 WBC Auto (Bld)Ordered By: Tank Norman on 06-04-2024 Neutrophils/100 WBC (Bld)Automated neutrophil %.[facility] – JacksonNucleated erythrocytes [Presence] in Blood by Automated countOrdered By: Tank Norman on 09-56-6274Jryachkdw RBC Auto Ql (Bld)0.1 /100{WBC}0-0.5 [facility] – JacksonNucleated RBC Auto Ql (Bld)Nucleated erythrocytes [Presence] in Blood by Automated count0-0.5FChildren's Hospital for RehabilitationWBC Auto (Bld) [#/Vol]Ordered By: Tank Norman on 06-04-2024 WBC (Bld) [#/Vol]Leukocytes [#/volume] in Blood by Automated count4.1-10.5 [facility] – JacksonActivated partial thromboplastin time (aPTT) in platelet poor plasma by coagulation aOrdered By: Mayda Matthews on 06-03-2024 aPTT Coag (PPP) [Time]30.2 s25.1-36.5FChildren's Hospital for RehabilitationComment on above:A hematocrit value greater than 55% may lead to inaccurate results in coagulation testing. Patientshaving hematocrit values >55% require a special collection tube for coagulation studies. Please contact the laboratory at [phone] for redraw instructions.Alanine aminotransferase [Enzymatic activity/volume] in Serum or PlasmaOrdered By: Mayda Matthews on 59-95-7905OEL [Catalytic activity/Vol]7 U/LHolzer Medical Center – JacksonALT [Catalytic activity/Vol]Alanine aminotransferase [Enzymatic activity/volume] in Serum or PlasmaHolzer Medical Center – JacksonAlbumin [Mass/volume] in Serum or Plasma by Bromocresol green (BCG) dye binding methoOrdered By: Mayda Matthews on 79-73-1413Qgimnzl BCG dye [Mass/Vol]3.2 g/dLLow3.5-5.7FChildren's Hospital for RehabilitationAlbumin BCG dye [Mass/Vol]Albumin [Mass/volume] in Serum or Plasma by Bromocresol green (BCG) dye binding methoLow3.5-5.7FChildren's Hospital for RehabilitationAlkaline phosphatase [Enzymatic activity/volume] in Serum or PlasmaOrdered By: Mayda Matthews on 34-41-6988LXH [Catalytic activity/Vol]86 U/Y95-148IfrbvihmoHolzer Medical Center – JacksonALP [Catalytic activity/Vol]Alkaline phosphatase [Enzymatic activity/volume] in Serum or Gftlem67-570BkneftlcnHolzer Medical Center – JacksonAspartate aminotransferase [Enzymatic activity/volume] in Serum or PlasmaOrdered By: Mayda Matthews on 82-42-5545CFT [Catalytic activity/Vol]16 U/J25-21IlaeeiphqHolzer Medical Center – JacksonAST [Catalytic activity/Vol]Aspartate aminotransferase [Enzymatic activity/volume] in Serum or Uwrees36-58VodaaaymjHolzer Medical Center – JacksonBasic Metabolic Panelon 06-03-2024 Anion gap [Moles/Vol]10.9 mmol/LNormal6.0-15.0[facility] Comment on above:Order Comment: Comment please call results to Dr. Rahman RE TIME FROM 1700 TO 2230 PER RN KRISTENPerformed By: #### BMP #### [facility] [address] [place] [address] USACalcium [Mass/Vol]9.1 mg/dLNormal8.6-10.3The [facility] Physician GroupComment on above:Order Comment: Comment please call results to Dr. Rahman RE TIME FROM 1700 TO 2230 PER RN KRISTENPerformed By: #### BMP #### [facility] [address] [place] [id number] USAChloride [Moles/Vol]108 mmol/LGjwm20-965Fun [facility] Physician GroupComment on above:Order Comment: Comment please call results to Dr. Rahman RE TIME FROM 1700 TO 2230 PER RN KRISTENPerformed By: #### BMP #### [facility] [address] [place] [address] USACO2 [Moles/Vol]22.9 mmol/WGtgdkv42.0-31.0[facility] Of MeridianComment on above:Order Comment: Comment please call results to Dr. Rahman RE TIME FROM 1700 TO 2230 PER RN KRISTENPerformed By: #### BMP #### [facility] [address] [place] [address] USACreatinine [Mass/Vol]3.07 mg/dLHigh0.70-1.30The [facility] Physician GroupComment on above:Order Comment: Comment please call results to Dr. Rahman RE TIME FROM 1700 TO 2230 PER RN KRISTENPerformed By: #### BMP #### [place] [address] USACreatinine Clr Calc Qpgrydmn89.53NormalThe Delaware County Memorial HospitalComment on above:Order Comment: Comment please call results to Dr. Rahman RE TIME FROM 1700 TO 2230 PER RN KRISTENResult Comment: PERFORMED BY: [place] [address] PATHOLOGIST DOCK SUPERINTENDENT MEAGAN HARDING M.D.Performed By: #### BMP #### [place] [address] USAGFR/1.73 sq M.predicted MDRD (S/P/Bld) [Vol rate/Area] 19.926 mL/min/{1.73_m2}NormalThe [facility] Of MeridianComment on above:Order Comment: Comment please call results to Dr. Rahman RE TIME FROM 1700 TO 2230 PER RN KRISTENPerformed By: #### BMP #### [place] [address] USAGlucose [Mass/Vol]150 mg/jMWnfa18-413Foo [facility] Physician GroupComment on above:Order Comment: Comment please call results to Dr. Rahman RE TIME FROM 1700 TO 2230 PER RN KRISTENResult Comment: Random Glucose Reference Range is dependent on time and content of last meal. Glucose of more than 200 mg/dL in a nonstressed, ambulatory subject supports the diagnosis of Diabetes Mellitus. ADA recommended reference rangePerformed By: #### BMP #### [facility] [address] [place] [address] USAPotassium [Moles/Vol]4.8 mmol/LNormal3.5-5.1The [facility] Physician GroupComment on above:Order Comment: Comment please call results to Dr. Rahman RE TIME FROM 1700 TO 2230 PER RN KRISTENPerformed By: #### BMP #### [facility] [address] [place] [address] USASodium [Moles/Vol]137 mmol/LEshdet259-082Rfr [facility] Physician GroupComment on above:Order Comment: Comment please call results to Dr. Rahman RE TIME FROM 1700 TO 2230 PER RN KRISTENPerformed By: #### BMP #### [facility] [address] [place] [address] USAUrea nitrogen [Mass/Vol]43 mg/dLHigh7-25The [facility] Physician GroupComment on above:Order Comment: Comment please call results to Dr. Rahman RE TIME FROM 1700 TO 2230 PER RN KRISTENPerformed By: #### BMP #### [facility] [address] [place] [address] USABilirubin.total [Mass/volume] in Serum or PlasmaOrdered By: Mayda Matthews on 77-79-5742Jzuwvdsow [Mass/Vol]0.3 mg/dL0.3-1.0[facility] – JacksonBilirubin [Mass/Vol]Bilirubin.total [Mass/volume] in Serum or Plasma0.3-1.0[facility] – JacksonGlobulin Calc (S) [Mass/Vol]Ordered By: Obmaine Senr on 93-84-2820Fdgckbbz (S) [Mass/Vol]2.6 g/dLHolzer Medical Center – JacksonGlobulin (S) [Mass/Vol]Serum globulin measurement by calculation (mass/volume)[facility] – JacksonGlucose Poct Glucometerson 30-20-1990Tgcjlnm [Mass/Vol]170 mg/dLTampa Shriners Hospital Physician GroupComment on above:Result Comment: Random Glucose Reference Range is dependent on time and content of last meal. Glucose of more than 200 mg/dL in a nonstressed, ambulatory subject supports the diagnosis of Diabetes Mellitus. PERFORMED BY: [place] [address] PATHOLOGIST DOCK SUPERINTENDENT MEAGAN HARDING M.D.Performed By: #### RENAL, MG, PROCRERAT, CBCNO, URIC #### [place] [address] USAGlucose [Mass/Vol]230 mg/dLNoSelect Specialty Hospital - Winston-Salem Physician GroupComment on above:Result Comment: Random Glucose Reference Range is dependent on time and content of last meal. Glucose of more than 200 mg/dL in a nonstressed, ambulatory subject supports the diagnosis of Diabetes Mellitus. PERFORMED BY: [place] [address] PATHOLOGIST DOCK SUPERINTENDENT MEAGAN HARDING M.D.Performed By: #### GLULS #### Point of Care testing ,Ueddjhn1Jzo6: Cleaned MeterNoSelect Specialty Hospital - Winston-Salem Physician GroupComment on above: Result Comment: PERFORMED BY: [place] [address] PATHOLOGIST DOCK SUPERINTENDENT MEAGAN HARDING M.D.Performed By: #### GLULS #### Point of Care testing ,Glucose [Mass/Vol]75 mg/dLNoSelect Specialty Hospital - Winston-Salem Physician GroupComment on above: Result Comment: Random Glucose Reference Range is dependent on time and content of last meal. Glucose of more than 200 mg/dL in a nonstressed, ambulatory subject supports the diagnosis of Diabetes Mellitus.Performed By: #### GLULS #### Point of Care testing ,Glucose [Mass/Vol]71 mg/dLTampa Shriners Hospital Physician GroupComment on above: Result Comment: Random Glucose Reference Range is dependent on time and content of last meal. Glucose of more than 200 mg/dL in a nonstressed, ambulatory subject supports the diagnosis of Diabetes Mellitus. PERFORMED BY: [address] [address] PATHOLOGIST DOCK SUPERINTENDENT MEAGAN HARDING M.D.Performed By: #### BMP #### [place] [address] USAINR in Platelet poor plasma by Coagulation assayOrdered By: Mayda Matthews on 45-82-9767XDD Coag (PPP) [Relative time]1.1 {INR} [facility] – JacksonComment on above:INR Therapeutic Range A) Pre- and Peroperative OAT started two weeks before surgery. NOT HIP SURGERY: 1.5 - 2.5 HIP SURGERY: 2 - 3B) Primary and secondary prevention of venous THROMBOSIS: 2 - 3C) Active venous thrombosis, pulmonary embolismand prevention of recurrent venous thrombosis: 2 - 3D) Prevention of arterial thromboembolismincluding patients with mechanical heart valves: 3 - 4.5INR Coag (PPP) [Relative time]INR in Platelet poor plasma by Coagulation assayHolzer Medical Center – Jackson Magnesium [Mass/volume] in Serum or PlasmaOrdered By: Mayda Matthews on 32-54-3387Wncfqjapg [Mass/Vol]2.0 mg/dL1.9-2.7FChildren's Hospital for Rehabilitation Magnesium [Mass/Vol]Magnesium [Mass/volume] in Serum or Plasma1.9-2.7FChildren's Hospital for RehabilitationPotassiumon 61-26-4525Ngkwowsir [Moles/Vol]5.9 mmol/LHigh 3.5-5.1The [facility] Physician GroupComment on above:Result Comment: PERFORMED BY: [address] [address] PATHOLOGIST DOCK SUPERINTENDENT MEAGAN HARDING M.D.Performed By: #### GLULS #### Point of Care testing ,Protein [Mass/volume] in Serum or PlasmaOrdered By: Mayda Matthews on 07-10-6073Mkfamew [Mass/Vol]5.8 g/dLLow6.4-8.9[facility] Protein [Mass/Vol]Protein [Mass/volume] in Serum or PlasmaLow6.4-8.9[facility] – JacksonProthrombin time (PT)Ordered By: Obaydah Daromar on 19-29-8805UT Coag (PPP) [Time]13.0 sHigh9.0-12.9[facility] – JacksonComment on above:A hematocrit value greater than 55% may lead to inaccurate results in coagulation testing. Patientshaving hematocrit values >55% require a special collection tube for coagulation studies. Please contact the laboratory at [phone] for redraw instructions.PT Coag (PPP) [Time] Prothrombin time (PT)High9.0-12.9[facility]oledo Hospitalerum or plasma albumin/globulin mass ratioOrdered By: Mayda Matthews on 06-03-2024 Albumin/Globulin [Mass ratio]1.2 {ratio}[facility] Albumin/Globulin [Mass ratio]Serum or plasma albumin/globulin mass ratio [facility] – JacksonaPTT in Platelet poor plasma by Coagulation assayOrdered By: Mayda Matthews on 38-15-7452jYNM Coag (PPP) [Time]Activated partial thromboplastin time (aPTT) in platelet poor plasma by coagulation a 25.1-36.5FChildren's Hospital for RehabilitationAlanine aminotransferase [Enzymatic activity/volume] in Serum or PlasmaOrdered By: Brook Huddleston on 26-11-8453RBR [Catalytic activity/Vol]12 U/L7-52[facility] – JacksonAlbumin [Mass/volume] in Serum or Plasma by Bromocresol green (BCG) dye binding metho Ordered By: Brook Huddleston on 17-32-2900Vjwpfot BCG dye [Mass/Vol]3.9 g/dL3.5-5.7 [facility] – JacksonAlkaline phosphatase [Enzymatic activity/volume] in Serum or PlasmaOrdered By: Brook Huddleston on 01-13-4923GNE [Catalytic activity/Vol]97 U/U29-743OmgpeouqrHolzer Medical Center – JacksonAppearance of UrineOrdered By: Mayda Matthews on 99-16-0202Mwtevznohx (U)Urine appearance AbnormalCleKeenan Private HospitalAspartate aminotransferase [Enzymatic activity/volume] in Serum or PlasmaOrdered By: Brook Huddleston on 11-36-2510MLG [Catalytic activity/Vol]18 U/A35-66SmrtoxvglHolzer Medical Center – JacksonBacteria [Presence] in Urine by AutomatedOrdered By: Obmaine Headleyomar on 53-09-5625Oqntiwfa Auto Ql (U)1+ [HPF]HighNone SeenHolzer Medical Center – JacksonBacteria Auto Ql (U)Bacteria [Presence] in Urine by AutomatedHighNone Seen [facility] – JacksonBasophils Auto (Bld) [#/Vol]Ordered By: Brook Huddleston on 90-16-1188Sqserezwz (Bld) [#/Vol]0.0 10*3/uL0.0-0.2FChildren's Hospital for RehabilitationBasophils/100 WBC Auto (Bld)Ordered By: Brook Huddleston on 06-02-2024 Basophils/100 WBC (Bld)0.3 %.[facility] – JacksonBilirubin Test strip Ql (U)Ordered By: Mayda Matthews on 20-60-6868Lrfnbdlsa Ql (U)Negative NegativeHolzer Medical Center – JacksonBilirubin Ql (U)Bilirubin.total [Presence] in Urine by Test stripNegativeHolzer Medical Center – Jackson Bilirubin.total [Mass/volume] in Serum or PlasmaOrdered By: Brook Huddleston on 64-50-8216Vthbnnpmr [Mass/Vol]0.4 mg/dL0.3-1.0[facility] CBC W Auto Differential panel (Bld)on 51-22-4328Nxaxgyjze (Bld) [#/Vol]0 10*3/uL 0.0 - 0.2 10*3/uLNOMS HealthcareBasophils/100 WBC Manual cnt (Syn fld)0.3 %.[facility]OMS HealthcareEosinophils (Bld) [#/Vol]0.4 10*3/uL0.0 - 0.45 10*3/uLNOMS Healthcare Eosinophils/100 WBC Manual cnt (Syn fld)5.4 %.[facility]OMS HealthcareErythrocyte distribution width (RBC) [Ratio]16.7 %High12.0 - 14.8 %[facility]OMS HealthcareHematocrit (Bld) [Volume fraction]30.2 %Low38.8 - 50.0 %[facility] HealthcareHemoglobin (Bld) [Mass/Vol]10.3 g/dLLow13.0 - 17.0 g/dLNOUT HealthcareLymphocytes (Bld) [#/Vol] 0.7 10*3/uLLow1.00 - 4.8 10*3/uLNOMS HealthcareLymphocytes/100 WBC Manual cnt (Syn fld)9.8 %.[facility] CenterH (RBC) [Entitic mass]36.2 hjXvgl01.5 - 35.2 pg [facility] CenterHC (RBC) [Mass/Vol]34.2 g/dL32.5 - 35.6 g/dLSSM DePaul Health CenterV (RBC) [Entitic vol]106 yNMvxe11.5 - 101 fLACADIA HEALTHCARE HealthcareMonocytes (Bld) [#/Vol] 0.5 10*3/uL0.0 - 0.8 10*3/uLNOMS HealthcareMonocytes+Macrophages/100 WBC Manual cnt (Syn fld)6.5 %.[facility] HealthcareNeutrophils (Bld) [#/Vol]5.7 10*3/uL1.8 - 7.7 10*3/uLNOMS HealthcareNeutrophils/100 WBC Manual cnt (Syn fld)78 %.[facility] HealthcareNRBC0 /100{WBC}0 - 0.5 /100{WBC}[facility] HealthcarePlatelet mean volume (Bld) [Entitic vol]8.2 fL6.6 - 10.1 fLNOUT HealthcarePlatelets (Bld) [#/Vol]168 10*3/uL150 - 450 10*3/uLNOMS HealthcareRBC LM.HPF (Urine sed) [#/Area]2.85 /[HPF]Low3.90 - 5.60NOMS HealthcareWBC (Bld) [#/Vol]7.3 10*3/uL4.1 - 10.5 10*3/uLNOMS HealthcareWBC LM.HPF (Urine sed) [#/Area]7.3 10*3/uL4.1 - 10.5 10*3/uLNOMS HealthcareCalcium [Mass/volume] in Serum or PlasmaOrdered By: Mayda Matthews on 94-83-7963Rabomai [Mass/Vol]8.8 mg/dL8.6-10.3FChildren's Hospital for RehabilitationCalcium [Mass/volume] in Serum or PlasmaOrdered By: Dong Smith on 63-55-1405Uczeudk [Mass/Vol]9.3 mg/dL8.6-10.3FChildren's Hospital for RehabilitationCalcium [Mass/volume] in Serum or PlasmaOrdered By: Brook Huddleston on 80-20-1130Aojwyvl [Mass/Vol]9.5 mg/dL8.6-10.3FChildren's Hospital for Rehabilitation Carbon dioxide, total [Moles/volume] in Serum or PlasmaOrdered By: Mayda Matthews on 64-06-8348KY8 [Moles/Vol]22.0 mmol/L21.0-31.0[facility] – JacksonCarbon dioxide, total [Moles/volume] in Serum or PlasmaOrdered By: Dong Smith on 16-21-2073MM0 [Moles/Vol]20.3 mmol/LLow21.0-31.0[facility] – JacksonCarbon dioxide, total [Moles/volume] in Serum or Plasma Ordered By: Brook Huddleston on 18-08-7759OL3 [Moles/Vol]22.0 mmol/L21.0-31.0[facility] – JacksonCasts [Presence] in Urine by AutomatedOrdered By: Mayda Matthews on 31-57-2357Ezlpi Auto Ql (U)5-9 [LPF]HighNone [facility]. Bing, MD, Cancer CenterCasts Auto Ql (U)Casts [Presence] in Urine by AutomatedHighGalion HospitalChloride [Moles/volume] in Serum or Plasma Ordered By: Mayda Matthews on 95-72-8862Fxdazcpb [Moles/Vol]108 mmol/LHigh 98-107[facility] – JacksonChloride [Moles/volume] in Serum or PlasmaOrdered By: Dong Smith on 48-94-4364Wwpdxtaa [Moles/Vol]107 mmol/L98-107 [facility] – JacksonChloride [Moles/volume] in Serum or Plasma Ordered By: Brook Huddleston on 07-30-4621Djeojphk [Moles/Vol]107 mmol/B35-141UyjbkjvxnHolzer Medical Center – JacksonColor Auto (U)Ordered By: Obmaine Matthews on 06-02-2024 Color (U)Light-yellowYelWilson Street HospitalColor (U)Color of Urine by AutoYelWilson Street HospitalComprehensive metabolic panelon 14-82-0804Inosgkd [Mass/Vol]3.9 g/dL3.5 - 5.7 g/dLNOMS HealthcareCO2 [Moles/Vol]22 mmol/L21.0 - 31.0 mmol/LNOMS HealthcareCreatinine (U) [Mass/Vol] 3.47 mg/dLHigh0.70 - 1.30 mg/dLNOUT HealthcareCREATININE CLR CALC GRNPXGVP27.39 NOMS HealthcareGFR/1.73 sq M.predicted MDRD (S/P/Bld) [Vol rate/Area]17.203 mL/min/{1.73_m2}[facility]OMS HealthcareGlobulin (S) [Mass/Vol]3 g/dLNOUT Healthcare Creatinine [Mass/volume] in Serum or PlasmaOrdered By: Mayda Matthews on 31-36-9250Tldtcorpcv [Mass/Vol]3.26 mg/dLHigh0.70-1.30[facility] – JacksonCreatinine [Mass/volume] in Serum or PlasmaOrdered By: Dong Smith on 95-92-0740Szbthtbrxl [Mass/Vol]3.47 mg/dLHigh0.70-1.30[facility] – JacksonCreatinine [Mass/volume] in Serum or PlasmaOrdered By: Brook Huddleston on 96-02-2805Xlhwlrbhun [Mass/Vol]3.47 mg/dLHigh0.70-1.30[facility] JacksonCrystals [Presence] in Urine by AutomatedOrdered By: Mayda Matthews on 01-34-1100Vroouowu Auto Ql (U)1+ [HPF][facility] – JacksonCrystals Auto Ql (U)Crystals [Presence] in Urine by AutomatedHolzer Medical Center – JacksonEosinophils Auto (Bld) [#/Vol]Ordered By: Brook Huddleston on 06-02-2024 Eosinophils (Bld) [#/Vol]0.4 10*3/uL0.0-0.45[facility] Eosinophils/100 WBC Auto (Bld)Ordered By: Brook Huddleston on 14-15-9266Wltxjbtoxri/100 WBC (Bld)5.4 %.[facility] – JacksonEpithelial cells.squamous [#/area] in Urine sediment by Automated countOrdered By: Mayda Headleyomar on 76-93-8277Zqnjpzwgjm cells.squamous Auto (Urine sed) [#/Area]N/AFChildren's Hospital for RehabilitationEpithelial cells.squamous Auto (Urine sed) [#/Area] Epithelial cells.squamous [#/area] in Urine sediment by Automated countHolzer Medical Center – JacksonErythrocyte distribution width Auto (RBC) [Ratio]Ordered By: Brook Huddleston on 04-04-4280Gihsizokjcx distribution width (RBC) [Ratio]16.7 % High12.0-14.8[facility] – JacksonErythrocytes [#/area] in Urine sediment by Automated countOrdered By: Mayda Headleyomar on 41-07-9675QMF Auto (Urine sed) [#/Area]50-100 [HPF]High0-4FChildren's Hospital for RehabilitationRBC Auto (Urine sed) [#/Area]Erythrocytes [#/area] in Urine sediment by Automated count High0-4FChildren's Hospital for RehabilitationGlobulin Calc (S) [Mass/Vol]Ordered By: Brook Huddleston on 45-13-8921Yuvujvbn (S) [Mass/Vol]3.0 g/dLHolzer Medical Center – JacksonGlucose Glucometer (BldC) [Mass/Vol]Ordered By: Mayda Headleyomar on 22-08-4669Klzeckx [Mass/Vol]134 mg/dLHolzer Medical Center – JacksonComment on above:Random Glucose Reference Range is dependent on time and content of last meal. Glucose of more than 200 mg/dL in a nonstressed, ambulatory subject supports the diagnosis of Diabetes Mellitus.Glucose [Mass/volume] in Serum or PlasmaOrdered By: Obfrankidanew Headleyomar on 46-73-4575Wqgdcbj [Mass/Vol]116 mg/dLHigh 70-100[facility] – JacksonComment on above:ADA recommended reference rangeRandom Glucose Reference Range is dependent on time and content of last meal. Glucose of more than 200 mg/dL in a nonstressed, ambulatory subject supports the diagnosisof Diabetes Mellitus.Glucose [Mass/volume] in Serum or PlasmaOrdered By: Dong Smith on 66-34-2140Vyndcvw [Mass/Vol]114 mg/dL Fvwa25-885IazhvkvkbHolzer Medical Center – JacksonComment on above:ADA recommended reference rangeRandom Glucose Reference Range is dependent on time and content of last meal. Glucose of more than 200 mg/dL in a nonstressed, ambulatory subject supports the diagnosisof Diabetes Mellitus.Glucose [Mass/volume] in Serum or PlasmaOrdered By: Brook Huddleston on 84-87-1956Tqghiud [Mass/Vol]203 mg/dL Bfjl41-934PdotkbzmqHolzer Medical Center – JacksonComment on above:ADA recommended reference rangeRandom Glucose Reference Range is dependent on time and content of last meal. Glucose of more than 200 mg/dL in a nonstressed, ambulatory subject supports the diagnosisof Diabetes Mellitus.Random Glucose Reference Range is dependent on time and content of last meal. Glucose of more than 200 mg/dL in a nonstressed, ambulatory subject supports the diagnosis of Diabetes Mellitus. ADA recommended reference range Glucose [Mass/volume] in Urine by Test stripOrdered By: Mayda Matthews on 24-41-8850Echyuan Test strip (U) [Mass/Vol]100 mg/dLHighNoProMedica Fostoria Community HospitalGlucose Test strip (U) [Mass/Vol]Glucose [Mass/volume] in Urine by Test stripHighOhioHealth Southeastern Medical CenterHematocrit Auto (Bld) [Volume fraction]Ordered By: Brook Huddleston on 99-02-9619Pkfqzuzlfm (Bld) [Volume fraction]30.2 %Low38.8-50.0[facility] – JacksonHemoglobin Test strip Ql (U)Ordered By: Mayda Senr on 85-44-0456Kxmldggczp Ql (U)2+High NegativeHolzer Medical Center – JacksonHemoglobin Ql (U)Hemoglobin [Presence] in Urine by Test stripHighNegativeHolzer Medical Center – JacksonHemoglobin [Mass/volume] in BloodOrdered By: Brook Huddleston on 09-50-0085Ivqysayguc (Bld) [Mass/Vol]10.3 g/dLLow13.0-17.0[facility] – JacksonHyaline casts [#/area] in Urine sediment by Automated countOrdered By: Mayda Matthews on 14-23-5534Ghzoyzg casts Auto (Urine sed) [#/Area]None [LPF]0-8[facility] – JacksonHyaline casts Auto (Urine sed) [#/Area]Hyaline casts [#/area] in Urine sediment by Automated count0-8[facility] – JacksonKetones Test strip Ql (U)Ordered By: Mayda Matthews on 93-32-1920Lxymcqh Ql (U)Negative NegativeHolzer Medical Center – JacksonKetones Ql (U)Ketones [Presence] in Urine by Test stripNegativeHolzer Medical Center – JacksonLaboratory - Microbiology and Antimicrobial susceptibilityOrdered By: Mayda Matthews on 05-68-8169Yxmneqzw identified Cx Nom (U)Jessica albicansAbnormMedina HospitalLeukocyte clumps [Presence] in Urine by AutomatedOrdered By: Mayda Matthews on 40-33-8969Dzwnetsyh clumps Auto Ql (U)Many [LPF]HighNone [facility] Cancer CenterLeukocyte clumps Auto Ql (U)Leukocyte clumps [Presence] in Urine by AutomatedHighNone [facility] Cancer CenterLeukocyte esterase [Presence] in Urine by Test stripOrdered By: Mayda Matthews on 64-11-2029Jcqsgxhql esterase Test strip Ql (U)4+HighNegativeHolzer Medical Center – JacksonLeukocyte esterase Test strip Ql (U)Leukocyte esterase [Presence] in Urine by Test stripHighNegProMedica Fostoria Community Hospital Leukocytes [#/area] in Urine sediment by Automated countOrdered By: Mayda Matthews on 54-74-2904EIK Auto (Urine sed) [#/Area]Innumerable [HPF]High0-4 [facility] JacksonWBC Auto (Urine sed) [#/Area]Leukocytes [#/area] in Urine sediment by Automated countHigh0-4FChildren's Hospital for RehabilitationLeukocytes [#/volume] corrected for nucleated erythrocytes in Blood by Automated counOrdered By: Brook Huddleston on 57-90-5535ZPW corrected for nucl RBC Auto (Bld) [#/Vol]7.3 10*3/uL4.1-10.5FChildren's Hospital for RehabilitationLymphocytes Auto (Bld) [#/Vol]Ordered By: Brook Huddleston on 97-53-9872Japmthnvoss (Bld) [#/Vol] 0.7 10*3/uLLow1.00-4.8[facility] – JacksonLymphocytes/100 WBC Auto (Bld)Ordered By: Brook Huddleston on 80-09-4456Trrxlvxtrfa/100 WBC (Bld)9.8 %.[facility] – JacksonMCH Auto (RBC) [Entitic mass]Ordered By: Brook Huddleston on 63-69-1404XGH (RBC) [Entitic mass]36.2 ghAmij22.5-35.2FChildren's Hospital for RehabilitationMCHC Auto (RBC) [Mass/Vol]Ordered By: Brook Huddleston on 04-86-7163YWHK (RBC) [Mass/Vol]34.2 g/dL32.5-35.6FChildren's Hospital for RehabilitationMCV Auto (RBC) [Entitic vol]Ordered By: Brook Huddleston on 30-17-0600RSB (RBC) [Entitic vol]106.0 fL High83.5-101[facility] – JacksonMonocytes Auto (Bld) [#/Vol]Ordered By: Brook Huddleston on 08-90-5790Xxhreuigo (Bld) [#/Vol]0.5 10*3/uL0.0-0.8[facility] – JacksonMonocytes/100 WBC Auto (Bld)Ordered By: Brook Huddleston on 96-65-0162Tisgykznh/100 WBC (Bld)6.5 %.[facility] – JacksonMucus [Presence] in Urine by AutomatedOrdered By: Mayda Matthews on 85-12-5636Wndwh Auto Ql (U)Rare [LPF][facility] – JacksonMucus Auto Ql (U)Mucus [Presence] in Urine by AutomatedHolzer Medical Center – JacksonNeutrophils Auto (Bld) [#/Vol]Ordered By: Brook Huddleston on 11-65-7153Iqazdusznau (Bld) [#/Vol] 5.7 10*3/uL1.8-7.7Fire[facility] Regional Medical CenterNeutrophils/100 WBC Auto (Bld)Ordered By: Brook Huddleston on 61-78-3901Objyppclicw/100 WBC (Bld)78.0 %. [facility] – JacksonNitrite Test strip Ql (U)Ordered By: Mayda Matthews on 30-45-0965Qhvkgvw Ql (U)NegativeNegativeHolzer Medical Center – JacksonNitrite Ql (U)Nitrite [Presence] in Urine by Test stripNegativeHolzer Medical Center – JacksonNo Panel InformationOrdered By: Mayda Matthews on 21-90-5899Vzciweoyv GFR (CKD-EPI)18.542 mL/MinHolzer Medical Center – Jackson Pharmacy Creatinine Clearance (Chem21.23[facility] – JacksonNo Panel InformationOrdered By: Dong Smith on 07-84-2735Mnbaccdqm GFR (CKD-EPI) 17.203 mL/MinHolzer Medical Center – JacksonPharmacy Creatinine Clearance (Chem19.50[facility] – JacksonNo Panel Informationon 06-02-2024 Interpretation and review of laboratory resultsAbUNC Health RockinghamNo Panel InformationOrdered By: Brook Huddleston on 33-04-1168Yqurzllmu GFR (CKD-EPI)17.203 mL/MinHolzer Medical Center – JacksonPharmacy Creatinine Clearance (Chem19.39[facility] – JacksonNucleated erythrocytes [Presence] in Blood by Automated countOrdered By: Brook Huddleston on 06-02-2024 Nucleated RBC Auto Ql (Bld)0.0 /100{WBC}0-0.5FChildren's Hospital for Rehabilitation Platelet mean volume Auto (Bld) [Entitic vol]Ordered By: Brook Huddleston on 06-02-2024 Platelet mean volume (Bld) [Entitic vol]8.2 fL6.6-10.1FChildren's Hospital for RehabilitationPlatelets Auto (Bld) [#/Vol]Ordered By: Brook Huddleston on 49-31-3896Uvmvgeeiy (Bld) [#/Vol]168 10*3/qI742-059YuogqhlgmHolzer Medical Center – JacksonPotassium [Moles/volume] in Serum or PlasmaOrdered By: Mayda Matthews on 06-02-2024 Potassium [Moles/Vol]5.0 mmol/L3.5-5.1FChildren's Hospital for RehabilitationPotassium [Moles/volume] in Serum or PlasmaOrdered By: Dong Smith on 06-02-2024 Potassium [Moles/Vol]6.1 mmol/LHigh3.5-5.1FChildren's Hospital for Rehabilitation Comment on above:Critical Result Called to and read back by: NICOLLE GOODSON at: 06/02/2024 16:34:28 by:[id number] [Moles/volume] in Serum or PlasmaOrdered By: Brook Huddleston on 57-87-1644Gqmaycnfq [Moles/Vol]6.1 mmol/LHigh3.5-5.1FChildren's Hospital for RehabilitationComment on above:Critical Result Called to and read back by: BROOK PELLETIER at: 06/02/2024 14:03:14 by:JACKSONCritical Result Called to and read back by: BROOK PELLETIER at: 06/02/2024 14:03:14 by:JACKSON Protein Test strip (U) [Mass/Vol]Ordered By: Mayda Matthews on 06-02-2024 Protein (U) [Mass/Vol]70 mg/dLHighNegativeHolzer Medical Center – Jackson Protein (U) [Mass/Vol]Protein [Mass/volume] in Urine by Test stripHighNegative [facility] – JacksonProtein [Mass/volume] in Serum or PlasmaOrdered By: Brook Huddleston on 21-42-7199Xesoeiu [Mass/Vol]6.9 g/dL6.4-8.9[facility] – JacksonRBC Auto (Bld) [#/Vol]Ordered By: Brook Huddleston on 20-21-5448JAJ (Bld) [#/Vol]2.85 10*6/uLLow3.90-5.60[facility] Hospitalerum or plasma albumin/globulin mass ratioOrdered By: Brook Huddleston on 84-06-4852Ynfkaov/Globulin [Mass ratio]1.3 {ratio}[facility] Hospitalerum or plasma anion gap determinationOrdered By: Obfrankidah Kayodeomar on 28-61-6447Tsirt gap [Moles/Vol] 11.0 mmol/L6.0-15.0[facility] Hospitalerum or plasma anion gap determinationOrdered By: Dong Smith on 63-94-4978Kdnaz gap [Moles/Vol]11.8 mmol/L6.0-15.0[facility] Hospitalerum or plasma anion gap determinationOrdered By: Brook Huddleston on 70-35-4375Aelml gap [Moles/Vol]10.1 mmol/L 6.0-15.0[facility] Hospitalodium [Moles/volume] in Serum or PlasmaOrdered By: Yasemindanew Headleyomanavarro on 57-50-7651Nuxjss [Moles/Vol]136 mmol/L 136-145T[facility]edo Hospitalodium [Moles/volume] in Serum or Plasma Ordered By: Dong Smith on 96-91-3846Jyexlt [Moles/Vol]133 mmol/PPbl421-441 [facility] Hospitalodium [Moles/volume] in Serum or PlasmaOrdered By: Brook Huddleston on 85-93-9293Ytyzal [Moles/Vol]133 mmol/HOsi940-085IrwupnibvToledo Hospitalpecific gravity Test strip (U) [Rel density]Ordered By: Obfrankidah Kayodeomar on 00-15-0103Zyvtvvtm gravity (U) [Rel density]1.0131.001-1.030 [facility] Hospitalpecific gravity (U) [Rel density]Specific gravity of Urine by Test strip1.001-1.030[facility] – JacksonUrea nitrogen [Mass/volume] in Serum or PlasmaOrdered By: Mayda Headleyomanavarro on 27-61-5394Hhhn nitrogen [Mass/Vol]44 mg/dL98 Reyes StreetUrea nitrogen [Mass/volume] in Serum or PlasmaOrdered By: Dong Smith on 07-97-3236Giqw nitrogen [Mass/Vol]48 mg/dL98 Re[address] StreetUrea nitrogen [Mass/volume] in Serum or PlasmaOrdered By: Brook Huddleston on 37-86-6512Yegy nitrogen [Mass/Vol]48 mg/dL98 Reyes StreetUrine appearanceOrdered By: Obaydah Daromar on 57-11-6993Aiwctxtjaj (U) CloudyAbnormalClearFChildren's Hospital for RehabilitationUrine cultureOrdered By: Obaydah Daromar on 72-63-9206Fxpkg cultureAbnoProMedica Fostoria Community HospitalUrobilinogen Test strip (U) [Mass/Vol]Ordered By: Mayda Headleyomar on 43-24-1716Yqpjklglrkok (U) [Mass/Vol]Normal mg/dLOhioHealth Southeastern Medical CenterUrobilinogen (U) [Mass/Vol]Urobilinogen [Mass/volume] in Urine by Test stripOhioHealth Southeastern Medical CenterWBC Auto (Bld) [#/Vol]Ordered By: Brook Huddleston on 10-45-6960HVW (Bld) [#/Vol]7.3 10*3/uL4.1-10.5FChildren's Hospital for RehabilitationYeast.budding [Presence] in Urine by Computer assisted methodOrdered By: Mayda Senr on 30-35-0825Edrjz.budding Computer assisted Ql (U)2+ [HPF]HighGalion HospitalYeast.budding Computer assisted Ql (U)Yeast.budding [Presence] in Urine by Computer assisted methodUniversity Hospitals Cleveland Medical CenterpH Test strip (U)Ordered By: Mayda Matthews on 04-90-7320cI (U)6.0 [pH]5.0-9.0[facility] – JacksonpH (U)pH of Urine by Test strip5.0-9.0[facility] – JacksonNo Panel InformationOrdered By: Orquidea Issa on 38-95-4240Cqovtbcqtpvil Pathology Test See [facility] North HospitalComment on above:See report. Scanned copy available in EMR.See [facility]24 hour urine albumin/total protein ratio by electrophoresisOrdered By: Brook Huddleston on 04-52-9500Mnbafej Elph (24H U) [Mass fraction]Albumin/Protein.total in 24 hour Urine by Electrophoresis.[facility] Jackson24 hour urine gamma globulin/total protein ratio by electrophoresisOrdered By: Brook Huddleston on 74-15-8485Enhfr globulin Elph (24H U) [Mass fraction]Gamma globulin/Protein.total in 24 hour Urine by Electrophoresis.[facility] Jackson24 hour urine protein monoclonal/total protein by electrophoresis Ordered By: Broko Huddleston on 08-42-5987Noxmcyf.monoclonal Elph (24H U) [Mass fraction]Protein.monoclonal/Protein.total in 24 hour Urine by ElectrophoresisNot ObservedFirJ.W. Ruby Memorial HospitalAlbumin [Mass/volume] in Serum or PlasmaOrdered By: Brook Huddleston on 80-02-3551Ofnmpuf [Mass/Vol]3.6 g/dL2.9-4.4 [facility] – JacksonAlbumin/Protein.total in 24 hour Urine by ElectrophoresisOrdered By: Brook Huddleston on 68-47-4320Vuacwji Elph (24H U) [Mass fraction]42.9 %.[facility] – JacksonCBC W Auto Differential panel (Bld)on 79-86-2178Ugceubcad (Bld) [#/Vol]0.0 10*3/uL0.0 - 0.2 10*3/uLNOMS HealthcareBasophils/100 WBC Manual cnt (Syn fld)0.4 %.NOMS HealthcareEosinophils (Bld) [#/Vol]0.4 10*3/uL0.0 - 0.45 10*3/uLNOMS HealthcareEosinophils/100 WBC Manual cnt (Syn fld)6.2 %.NOM HealthcareErythrocyte distribution width (RBC) [Ratio]16.6 %High12.0 - 14.8 %NOMS HealthcareHematocrit (Bld) [Volume fraction] 30.6 %Low38.8 - 50.0 %[facility]OMS HealthcareHemoglobin (Bld) [Mass/Vol]10.3 g/dLLow13.0 - 17.0 g/dLNOUT HealthcareInterpretation and review of laboratory results AbnormalNOUT HealthcareLymphocytes (Bld) [#/Vol]1.1 10*3/uL1.00 - 4.8 10*3/uL NOMS HealthcareLymphocytes/100 WBC Manual cnt (Syn fld)18.0 %.NOM HealthcareMCH (RBC) [Entitic mass]35.0 pg27.5 - 35.2 pgNOUT HealthcareMCHC (RBC) [Mass/Vol] 33.6 g/dL32.5 - 35.6 g/dLNOUT HealthcareMCV (RBC) [Entitic vol]104.3 mCFexs96.5 - 101 fLNOMS HealthcareMonocytes (Bld) [#/Vol]0.3 10*3/uL0.0 - 0.8 10*3/uLNOMS HealthcareMonocytes+Macrophages/100 WBC Manual cnt (Syn fld)4.9 %.NOMS HealthcareNeutrophils (Bld) [#/Vol]4.3 10*3/uL1.8 - 7.7 10*3/uLNOMS Healthcare Neutrophils/100 WBC Manual cnt (Syn fld)70.5 %.NOMS HealthcareNRBC0.1 /100{WBC}0 - 0.5 /100{WBC}NOMS HealthcarePlatelet mean volume (Bld) [Entitic vol]8.2 fL6.6 - 10.1 fLNOUT HealthcarePlatelets (Bld) [#/Vol]201 10*3/uL150 - 450 10*3/uLNOMS HealthcareRBC LM.HPF (Urine sed) [#/Area]2.93 /[HPF]Low3.90 - 5.60NOUT HealthcareWBC (Bld) [#/Vol]6.0 10*3/uL4.1 - 10.5 10*3/uLNOMS HealthcareWBC LM.HPF (Urine sed) [#/Area]6.0 10*3/uL4.1 - 10.5 10*3/uLNOMS HealthcareNOMS HealthcareComprehensive metabolic panelon 18-91-9001Fjbqszd [Mass/Vol]3.7 g/dL 3.5 - 5.7 g/dLNOUT HealthcareAlbumin/Globulin [Mass ratio]1.3 {ratio}NOMS HealthcareALP [Catalytic activity/Vol]109 U/LHigh34 - 104 U/LNOMS HealthcareALT [Catalytic activity/Vol]14 U/L7 - 52 U/LNOMS HealthcareAnion gap [Moles/Vol]11.5 mmol/L6.0 - 15.0NOMS HealthcareAST [Catalytic activity/Vol]15 U/L13 - 39 U/L NOMS HealthcareBilirubin [Mass/Vol]0.4 mg/dL0.3 - 1.0 mg/dLNOUT Healthcare Calcium [Mass/Vol]8.9 mg/dL8.6 - 10.3 mg/dLNOUT HealthcareChloride [Moles/Vol] 109 mmol/LHigh98 - 107 mmol/LNOMS HealthcareCO2 [Moles/Vol]24.0 mmol/L21.0 - 31.0 mmol/LNOMS HealthcareCreatinine (U) [Mass/Vol]2.58 mg/dLHigh0.70 - 1.30 mg/dLNOUT HealthcareCREATININE CLR CALC UACGQZIC99.08NOMS HealthcareGFR/1.73 sq M.predicted MDRD (S/P/Bld) [Vol rate/Area]24.550 mL/min/{1.73_m2}[facility] Globulin (S) [Mass/Vol]2.9 g/dLNOUT HealthcareGlucose [Mass/Vol]108 mg/cVGpgj86 - 100 mg/dLNOUT HealthcareComment on above:Random Glucose Reference Range is dependent on time and content of last meal. Glucose of more than 200 mg/dL in a nonstressed, ambulatory subject supports the diagnosis of Diabetes Mellitus. ADA recommended reference range Interpretation and review of laboratory resultsAbnormalNOMS HealthcarePotassium [Moles/Vol]4.5 mmol/L3.5 - 5.1 mmol/LNOMS HealthcareProtein [Mass/Vol]6.6 g/dL 6.4 - 8.9 g/dLNOUT HealthcareSodium [Moles/Vol]140 mmol/L136 - 145 mmol/LNOMS HealthcareUrea nitrogen [Mass/Vol]29 mg/dLHigh7 - 25 mg/dLNOThe Rehabilitation InstituteNOUT HealthcareGamma globulin/Protein.total in 24 hour Urine by Electrophoresis Ordered By: Brook Huddleston on 53-04-6427Ofjdk globulin Elph (24H U) [Mass fraction] 21.1 %.[facility] – JacksonIgA [Mass/volume] in Serum or Plasma Ordered By: Brook Huddleston on 23-91-9997WuT [Mass/Vol]184 mg/uB43-551YeymzhyolHolzer Medical Center – JacksonIgG [Mass/volume] in Serum or PlasmaOrdered By: Brook Huddleston on 33-92-6630VrB [Mass/Vol]1098 mg/uT088-0091KncskpgicHolzer Medical Center – Jackson IgM [Mass/volume] in Serum or PlasmaOrdered By: Brook Huddleston on 00-77-7491TjQ [Mass/Vol]64 mg/yQ57-669NcsmijguoHolzer Medical Center – JacksonComment on above: Performed at: [address] [id number] Director: Meclhor Agrawal PhD, Phone: [phone] for Urine Ordered By: Brook Huddleston on 38-07-2725Yshivxpjzpheft Immunofixation (U) [Interp] Comment.[facility] – JacksonComment on above:No monoclonality detected.Performed at: [address] [id number] Director: Melchor Agrawal PhD, Phone: [phone] Immunofixation (U) [Interp]Immunofixation for Urine.[facility] – JacksonComment on above:No monoclonality detected.Performed at: [address] [id number] Director: Melchor Agrawal PhD, Phone: [phone] light chains.kappa.free [Mass/volume] in Serum Ordered By: Brook Huddleston on 77-88-9823Jjpeccrspgrtzu light chains.kappa.free (S) [Mass/Vol]48.4 mg/LHigh3.3-19.4FChildren's Hospital for RehabilitationImmunoglobulin light chains.kappa.free/Immunoglobulin light chains.lambda.free [MassOrdered By: Brook Huddleston on 14-22-3450Oisbgcotftyaju light chains.kappa.free/Immunoglobulin light chains.lambda.free (S) [Mass ratio]1.490.26-1.65[facility] – JacksonComment on above:Performed at: [address] [id number] Director: Melchor Agrawal PhD, Phone: [phone] Immunoglobulin light chains.lambda.free [Mass/volume] in Serum or PlasmaOrdered By: Brook Huddleston on 07-28-7619Icvxhkyfhawzbs light chains.lambda.free [Mass/Vol] 32.4 mg/LHigh5.7-26.3FKeenan Private Hospital Lactate to pyruvate reaction [Catalytic activity/Vol]on 43-28-1918Qvodslvohypzif and review of laboratory resultsAbnormalNOMS HealthcareLDH LACTATE [id number] U/YZqm553 - 271 U/LNOMS HealthcareNOMS HealthcareLactate dehydrogenase [Enzymatic activity/volume] in Serum or Plasma by Lactate to pyOrdered By: Brook Huddleston on 28-53-4466VPT Lactate to pyruvate reaction [Catalytic activity/Vol]127 U/LLow 140-271Holzer Medical Center – JacksonLDH Lactate to pyruvate reaction [Catalytic activity/Vol]Lactate dehydrogenase [Enzymatic activity/volume] in Serum or Plasma by Lactate to mmHhq505-782NmfioavcnHolzer Medical Center – JacksonNo Panel InformationOrdered By: Brook Huddleston on 20-68-8430Qngjara Electrophoresis M-SpikeNot observed g/dLNot ObservedHolzer Medical Center – JacksonProtein Electrophoresis NoteComment.[facility] – JacksonComment on above: Protein electrophoresis scan will follow via computer,mail, or camera supervisor delivery.Performed at: [facility] [id number] Director: Melchor Agrawal PhD, Phone: [phone] Random Prot Electrophor NoteComment.[facility] – JacksonComment on above: Protein electrophoresis scan will follow via computer,mail, or camera supervisor delivery.Performed at: [facility] [id number] Director: Melchor Agrawal PhD, Phone: [phone] observed g/dL Not ObservedHolzer Medical Center – JacksonCommclaren flint.[facility] – JacksonProtein [Mass/volume] in Serum or PlasmaOrdered By: Brook Huddleston on 79-00-4914Xiitorn [Mass/Vol]6.5 g/dL6.0-8.5FChildren's Hospital for Rehabilitation Protein [Mass/volume] in UrineOrdered By: Brook Huddleston on 19-94-3385Thnoorg (U) [Mass/Vol]256.8 mg/dLNot Estab.[facility] – JacksonComment on above:Results confirmed ondilution.Protein.monoclonal/Protein.total in 24 hour Urine by ElectrophoresisOrdered By: Brook Huddleston on 13-93-8451Gjerblb.monoclonal Elph (24H U) [Mass fraction]Not observed %Not ObservedToledo Hospitalerum free kappa light chain measurementOrdered By: Brook Huddleston on 65-90-2405Takzosgnbszvum light chains.kappa.free (S) [Mass/Vol]Immunoglobulin light chains.kappa.free [Mass/volume] in SerumHigh3.3-19.4FOhio State Harding Hospitalerum globulin measurement (mass/volume)Ordered By: Brook Huddleston on 75-97-6676Ozchtxeu (S) [Mass/Vol]2.9 g/dL2.2-3.9[facility] – JacksonGlobulin (S) [Mass/Vol]Serum globulin measurement (mass/volume)2.2-3.9 [facility] Hospitalerum immunoglobulin free kappa light chains/immunoglobulin free lambda light chainsOrdered By: Brook Huddleston on 63-01-3982Foefkqnghkynbt light chains.kappa.free/Immunoglobulin light chains.lambda.free (S) [Mass ratio]Immunoglobulin light chains.kappa.free/Immunoglobulin light chains.lambda.free [Mass0.26-1.65 [facility] – JacksonComment on above:Performed at: [facility] [id number] [place], [place] [id number] Director: Melchor Agrawal PhD, Phone: [phone] or plasma IgA measurement (mass/volume)Ordered By: Brook Huddleston on 51-02-6238JgM [Mass/Vol]IgA [Mass/volume] in Serum or Mumkvq89-740 [facility] Hospitalerum or plasma IgG measurement (mass/volume) Ordered By: Brook Huddleston on 84-12-0867AvI [Mass/Vol]IgG [Mass/volume] in Serum or Bbdirb887-0301RwckpihgpToledo Hospitalerum or plasma IgM measurement (mass/volume)Ordered By: Brook Huddleston on 09-26-7361OuT [Mass/Vol]IgM [Mass/volume] in Serum or Xznayl42-274CvoxivgidHolzer Medical Center – JacksonComment on above: Performed at: [employer] [id number] [place], [place] [id number] Director: Melchor Agrawal PhD, Phone: [phone] or plasma albumin measurement (mass/volume)Ordered By: Brook Huddleston on 89-56-7611Ppzsfwv [Mass/Vol] Albumin [Mass/volume] in Serum or Plasma2.9-4.4FChildren's Hospital for Rehabilitation Serum or plasma albumin/globulin mass ratioOrdered By: Brook Huddleston on 05-20-2024 Albumin/Globulin [Mass ratio]1.2 {ratio}0.7-1.7FChildren's Hospital for Rehabilitation Albumin/Globulin [Mass ratio]Serum or plasma albumin/globulin mass ratio0.7-1.7 [facility] Hospitalerum or plasma alpha 1 globulin measurement by electrophoresis (mass/volume)Ordered By: Brook Huddleston on 13-56-6448Rlvkb 1 globulin Elph [Mass/Vol]0.3 g/dL0.0-0.4FChildren's Hospital for RehabilitationAlpha 1 globulin Elph [Mass/Vol]Serum or plasma alpha 1 globulin measurement by electrophoresis (mass/volume)0.0-0.4FOhio State Harding Hospitalerum or plasma alpha 2 globulin measurement by electrophoresis (mass/volume)Ordered By: Brook Huddleston on 81-44-4618Gkpig 2 globulin Elph [Mass/Vol]0.8 g/dL0.4-1.0[facility] – JacksonAlpha 2 globulin Elph [Mass/Vol]Serum or plasma alpha 2 globulin measurement by electrophoresis (mass/volume)0.4-1.0[facility] Hospitalerum or plasma beta globulin measurement by electrophoresis (mass/volume) Ordered By: Brook Huddleston on 93-36-5387Gtfm globulin Elph [Mass/Vol]0.8 g/dL0.7-1.3 [facility] – JacksonBeta globulin Elph [Mass/Vol]Serum or plasma beta globulin measurement by electrophoresis (mass/volume)0.7-1.3FOhio State Harding Hospitalerum or plasma gamma globulin measurement by electrophoresis (mass/volume)Ordered By: Brook Huddleston on 99-79-9749Gyxfz globulin Elph [Mass/Vol]1.0 g/dL0.4-1.8[facility] – JacksonGamma globulin Elph [Mass/Vol]Serum or plasma gamma globulin measurement by electrophoresis (mass/volume)0.4-1.8[facility] Hospitalerum or plasma immunoglobulin free lambda light chains measurement (mass/volume)Ordered By: Brook Huddleston on 39-22-4455Emxepduhqzqdbv light chains.lambda.free [Mass/Vol] Immunoglobulin light chains.lambda.free [Mass/volume] in Serum or PlasmaHigh 5.7-26.3FOhio State Harding Hospitalerum total protein measurementOrdered By: Brook Huddleston on 82-89-9367Ojaqlbx [Mass/Vol]Protein [Mass/volume] in Serum or Plasma6.0-8.5FChildren's Hospital for RehabilitationUrine alpha 1 globulin/total protein by electrophoresisOrdered By: Brook Huddleston on 74-36-9297Erieu 1 globulin Elph (U) [Mass fraction]3.1 %.[facility] – JacksonAlpha 1 globulin Elph (U) [Mass fraction]Urine alpha 1 globulin/total protein by electrophoresis. [facility] – JacksonUrine alpha 2 globulin/total protein ratio by electrophoresisOrdered By: Brook Huddleston on 15-71-5011Sltwq 2 globulin Elph (U) [Mass fraction]12.2 %.[facility] – JacksonAlpha 2 globulin Elph (U) [Mass fraction]Urine alpha 2 globulin/total protein ratio by electrophoresis. [facility] – JacksonUrine beta globulin measurement by electrophoresis (mass/volume)Ordered By: Brook Huddleston on 74-98-8495Zwho globulin Elph (U) [Mass/Vol]20.7 %.[facility] – JacksonBeta globulin Elph (U) [Mass/Vol]Urine beta globulin measurement by electrophoresis (mass/volume). [facility] – JacksonUrine protein measurement (mass/volume)Ordered By: Brook Huddleston on 92-68-5442Gcwjcry (U) [Mass/Vol]Protein [Mass/volume] in Urine Not Estab.[facility] – JacksonComment on above:Results confirmed ondilution.CBC W Auto Differential panel (Bld)on 31-11-9436Ekeacyibi (Bld) [#/Vol]0.0 10*3/uL0.0 - 0.2 10*3/uLNOMS HealthcareBasophils/100 WBC Manual cnt (Syn fld)0.3 %.NOMS HealthcareEosinophils (Bld) [#/Vol]0.4 10*3/uL0.0 - 0.45 10*3/uLNOMS HealthcareEosinophils/100 WBC Manual cnt (Syn fld)6.3 %.NOMS HealthcareErythrocyte distribution width (RBC) [Ratio]16.5 %High12.0 - 14.8 % NOMS HealthcareHematocrit (Bld) [Volume fraction]32.3 %Low38.8 - 50.0 %NOMS HealthcareHemoglobin (Bld) [Mass/Vol]10.8 g/dLLow13.0 - 17.0 g/dLCooper County Memorial Hospital Interpretation and review of laboratory resultsAbnormalCooper County Memorial Hospital Lymphocytes (Bld) [#/Vol]1.2 10*3/uL1.00 - 4.8 10*3/uLNOMS Healthcare Lymphocytes/100 WBC Manual cnt (Syn fld)17.5 %.[facility] CenterH (RBC) [Entitic mass]35.1 pg27.5 - 35.2 pgSSM DePaul Health CenterHC (RBC) [Mass/Vol]33.4 g/dL32.5 - 35.6 g/dLSSM DePaul Health CenterV (RBC) [Entitic vol]105.2 pCLtrd64.5 - 101 fLCooper County Memorial HospitalMonocytes (Bld) [#/Vol]0.5 10*3/uL0.0 - 0.8 10*3/uLNOThe Rehabilitation Institute Monocytes+Macrophages/100 WBC Manual cnt (Syn fld)7.3 %.[facility] Neutrophils (Bld) [#/Vol]4.7 10*3/uL1.8 - 7.7 10*3/uLNOUT Healthcare Neutrophils/100 WBC Manual cnt (Syn fld)68.6 %.[facility] HospitalNRBC0.1 /100{WBC}0 - 0.5 /100{WBC}[facility] HospitalPlatelet mean volume (Bld) [Entitic vol]8.2 fL6.6 - 10.1 fLCooper County Memorial HospitalPlatelets (Bld) [#/Vol]192 10*3/uL150 - 450 10*3/uLNOThe Rehabilitation InstituteRBC LM.HPF (Urine sed) [#/Area]3.07 /[HPF]Low3.90 - 5.60NOThe Rehabilitation InstituteWBC (Bld) [#/Vol]6.9 10*3/uL4.1 - 10.5 10*3/uLNOThe Rehabilitation InstituteWBC LM.HPF (Urine sed) [#/Area]6.9 10*3/uL4.1 - 10.5 10*3/uLNOMS Self Regional HealthcareComprehensive metabolic panelon 24-52-5851Unchbrf [Mass/Vol]3.8 g/dL 3.5 - 5.7 g/dLNOUT HealthcareAlbumin/Globulin [Mass ratio]1.5 {ratio}[facility]EDS HealthcareALP [Catalytic activity/Vol]124 U/LHigh34 - 104 U/LNOMS HealthcareALT [Catalytic activity/Vol]17 U/L7 - 52 U/LNOMS HealthcareAnion gap [Moles/Vol]11.1 mmol/L6.0 - 15.0NOMS HealthcareAST [Catalytic activity/Vol]15 U/L13 - 39 U/L [facility] HealthcareBilirubin [Mass/Vol]0.4 mg/dL0.3 - 1.0 mg/dLNOUT Healthcare Calcium [Mass/Vol]8.9 mg/dL8.6 - 10.3 mg/dLNOMS HealthcareChloride [Moles/Vol] 110 mmol/LHigh98 - 107 mmol/LNOMS HealthcareCO2 [Moles/Vol]24.4 mmol/L21.0 - 31.0 mmol/LNOMS HealthcareCreatinine (U) [Mass/Vol]2.31 mg/dLHigh0.70 - 1.30 mg/dLNOUT HealthcareCREATININE CLR CALC IXRVHAIK06.13NOUT HealthcareGFR/1.73 sq M.predicted MDRD (S/P/Bld) [Vol rate/Area]28.033 mL/min/{1.73_m2}[facility] Globulin (S) [Mass/Vol]2.6 g/dLNOUT HealthcareGlucose [Mass/Vol]76 mg/dL70 - 100 mg/dLNOUT HealthcareComment on above:Random Glucose Reference Range is dependent on time and content of last meal. Glucose of more than 200 mg/dL in a nonstressed, ambulatory subject supports the diagnosis of Diabetes Mellitus. ADA recommended reference range Interpretation and review of laboratory resultsAbnormalNOMS HealthcarePotassium [Moles/Vol]4.5 mmol/L3.5 - 5.1 mmol/LNOMS HealthcareProtein [Mass/Vol]6.4 g/dL 6.4 - 8.9 g/dLNOUT HealthcareSodium [Moles/Vol]141 mmol/L136 - 145 mmol/LNOMS HealthcareUrea nitrogen [Mass/Vol]29 mg/dLHigh7 - 25 mg/dLNOUT HealthcareNOUT HealthcareCBC W Auto Differential panel (Bld)on 19-42-5049Csglowdvx (Bld) [#/Vol]0.0 10*3/uL0.0 - 0.2 10*3/uLNOUT HealthcareBasophils/100 WBC Manual cnt (Syn fld)0.5 %.[facility] HealthcareEosinophils (Bld) [#/Vol]0.4 10*3/uL0.0 - 0.45 10*3/uLNOMS HealthcareEosinophils/100 WBC Manual cnt (Syn fld)6.3 %.[facility] HospitalErythrocyte distribution width (RBC) [Ratio]16.0 %High12.0 - 14.8 % [facility] HospitalHematocrit (Bld) [Volume fraction]29.1 %Low38.8 - 50.0 %[facility] HospitalHemoglobin (Bld) [Mass/Vol]9.7 g/dLLow13.0 - 17.0 g/dLCooper County Memorial Hospital Interpretation and review of laboratory resultsAbnormalCooper County Memorial Hospital Lymphocytes (Bld) [#/Vol]1.3 10*3/uL1.00 - 4.8 10*3/uLNOUT Healthcare Lymphocytes/100 WBC Manual cnt (Syn fld)18.5 %.[facility] HospitalMCH (RBC) [Entitic mass]35.0 pg27.5 - 35.2 pgSSM DePaul Health CenterHC (RBC) [Mass/Vol]33.4 g/dL32.5 - 35.6 g/dLCooper County Memorial HospitalMCV (RBC) [Entitic vol]105.0 kUMimh00.5 - 101 fLCooper County Memorial HospitalMonocytes (Bld) [#/Vol]0.5 10*3/uL0.0 - 0.8 10*3/uLNOUT Healthcare Monocytes+Macrophages/100 WBC Manual cnt (Syn fld)6.6 %.[facility] Neutrophils (Bld) [#/Vol]4.7 10*3/uL1.8 - 7.7 10*3/uLNOUT Healthcare Neutrophils/100 WBC Manual cnt (Syn fld)68.1 %.[facility] HospitalNRBC0.2 /100{WBC}0 - 0.5 /100{WBC}[facility] HealthcarePlatelet mean volume (Bld) [Entitic vol]8.1 fL6.6 - 10.1 fLNOMS HealthcarePlatelets (Bld) [#/Vol]185 10*3/uL150 - 450 10*3/uLNOMS HealthcareRBC LM.HPF (Urine sed) [#/Area]2.77 /[HPF]Low3.90 - 5.60NOMS HealthcareWBC (Bld) [#/Vol]6.9 10*3/uL4.1 - 10.5 10*3/uLNOMS HealthcareWBC LM.HPF (Urine sed) [#/Area]6.9 10*3/uL4.1 - 10.5 10*3/uLNOMS HealthcareNOMS HealthcareComprehensive metabolic panelon 43-69-8980Bohvife [Mass/Vol]3.9 g/dL 3.5 - 5.7 g/dLNOMS HealthcareAlbumin/Globulin [Mass ratio]1.7 {ratio}NOMS HealthcareALP [Catalytic activity/Vol]125 U/LHigh34 - 104 U/LNOMS HealthcareALT [Catalytic activity/Vol]19 U/L7 - 52 U/LNOMS HealthcareAnion gap [Moles/Vol]9.3 mmol/L6.0 - 15.0NOMS HealthcareAST [Catalytic activity/Vol]16 U/L13 - 39 U/LNOMS HealthcareBilirubin [Mass/Vol]0.3 mg/dL0.3 - 1.0 mg/dLNOMS HealthcareCalcium [Mass/Vol]8.9 mg/dL8.6 - 10.3 mg/dLNOMS HealthcareChloride [Moles/Vol]109 mmol/L High98 - 107 mmol/LNOMS HealthcareCO2 [Moles/Vol]24.1 mmol/L21.0 - 31.0 mmol/L [facility] HealthcareCreatinine (U) [Mass/Vol]2.24 mg/dLHigh0.70 - 1.30 mg/dLNOMS HealthcareCREATININE CLR CALC UOZEQSLV92.04NOMS HealthcareGFR/1.73 sq M.predicted MDRD (S/P/Bld) [Vol rate/Area]29.088 mL/min/{1.73_m2}[facility] Globulin (S) [Mass/Vol]2.3 g/dLNOMS HealthcareGlucose [Mass/Vol]143 mg/bOKanj91 - 100 mg/dLNOMS HealthcareComment on above:Random Glucose Reference Range is dependent on time and content of last meal. Glucose of more than 200 mg/dL in a nonstressed, ambulatory subject supports the diagnosis of Diabetes Mellitus. ADA recommended reference range Interpretation and review of laboratory resultsAbnormalNOMS HealthcarePotassium [Moles/Vol]4.4 mmol/L3.5 - 5.1 mmol/LNOMS HealthcareProtein [Mass/Vol]6.2 g/dL Low6.4 - 8.9 g/dLNOMS HealthcareSodium [Moles/Vol]138 mmol/L136 - 145 mmol/LNOMS HealthcareUrea nitrogen [Mass/Vol]24 mg/dL7 - 25 mg/dLNOMS HealthcareNOMS HealthcareAmbulatory Visit Summaryon 14-99-4792Hpwrxkuzgk Visit Summary Ambulatory Visit Summary PATSY MILLS :1945 Visit Date:04/26/2024 Ambulatory Visit Instructions Your Diagnosis Noncompliant bladder Your Care Team Attending Physician - CARLEY Damian APRN, Makayla Soriano Primary Care Physician - HELEN OCHOA MD This Is Your Medications List aspirin (aspirin 81 mg Chew Tab) atorvastatin (atorvastatin 20 mg Tab) bifidobacterium-lactobacillus (Probiotic + Colostrum) cephalexin (cephalexin 500 mg [...] stent (06/10/2023), ESWL of kidney (06/10/2023), Cystostomy andinsertion of suprapubic tube (03/05/2023), Cystoscopic insertion of ureteric stent (12/10/2022), TURP - Transurethral resection of prostate (08/27/2022), Transurethral insertion of prostatic urethrallift implant (05/05/2022), Cystoscopic removal of ureteric stent (08/20/2012), Cystoscopic ureteroneocystostomy with insertion 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 What to do next Scheduled Follow-Up Appointments Thursday 2:30 PM EDT With: CARLEY Damian APRN, Makayla Soriano Where: [facility] [address] [place] [address]- Medications What How Much When Instructions Unchanged aspirin (aspirin 81 mg Chew Tab) Chewed Every day Unchanged atorvastatin (atorvastatin 20 mg Tab) 1 Tablets By Mouth Every day Unchanged bifidobacterium-lactobacillus (Probiotic + Colostrum) By Mouth Every day [...] 2 times a day take 1 cap morningof cath change and 12hrs after Unchanged oxybutynin [...] you for choosing us for your care. [facility] W Auto Differential panel (Bld)on 34-13-6514Gkfpnhaeb (Bld) [#/Vol]0.0 10*3/uL0.0 - 0.2 10*3/uLNOMS HealthcareBasophils/100 WBC Manual cnt (Syn fld)0.2 %.NOMS HealthcareEosinophils (Bld) [#/Vol]0.3 10*3/uL0.0 - 0.45 10*3/uLNOMS HealthcareEosinophils/100 WBC Manual cnt (Syn fld)5.2 %.[facility] HealthcareErythrocyte distribution width (RBC) [Ratio]16.2 %High12.0 - 14.8 %NOMS HealthcareHematocrit (Bld) [Volume fraction] 30.2 %Low38.8 - 50.0 %[facility] HealthcareHemoglobin (Bld) [Mass/Vol]10.1 g/dLLow13.0 - 17.0 g/dLACADIA HEALTHCARE HealthcareInterpretation and review of laboratory results AbnormalNOUT HealthcareLymphocytes (Bld) [#/Vol]0.5 10*3/uLLow1.00 - 4.8 10*3/uL NOMS HealthcareLymphocytes/100 WBC Manual cnt (Syn fld)8.1 %.[facility] HospitalMCH (RBC) [Entitic mass]35.5 ihRvnq15.5 - 35.2 pgSSM DePaul Health CenterHC (RBC) [Mass/Vol]33.3 g/dL32.5 - 35.6 g/dLCooper County Memorial HospitalMCV (RBC) [Entitic vol]106.8 nROvpg11.5 - 101 fLNOMS HealthcareMonocytes (Bld) [#/Vol]0.5 10*3/uL0.0 - 0.8 10*3/uLNOMS HealthcareMonocytes+Macrophages/100 WBC Manual cnt (Syn fld)7.3 %. [facility] HealthcareNeutrophils (Bld) [#/Vol]4.9 10*3/uL1.8 - 7.7 10*3/uLNOMS HealthcareNeutrophils/100 WBC Manual cnt (Syn fld)79.2 %.[facility] HealthcareNRBC0.0 /100{WBC}0 - 0.5 /100{WBC}NOM HealthcarePlatelet mean volume (Bld) [Entitic vol]8.3 fL6.6 - 10.1 fLACADIA HEALTHCARE HealthcarePlatelets (Bld) [#/Vol]177 10*3/uL150 - 450 10*3/uLNOMS HealthcareRBC LM.HPF (Urine sed) [#/Area]2.83 /[HPF]Low3.90 - 5.60NOUT HealthcareWBC (Bld) [#/Vol]6.3 10*3/uL4.1 - 10.5 10*3/uLNOMS Healthcare WBC LM.HPF (Urine sed) [#/Area]6.3 10*3/uL4.1 - 10.5 10*3/uLNOMS HealthcareNOMS HealthcareComprehensive metabolic panelon 67-78-4900Dxlowap [Mass/Vol]3.8 g/dL 3.5 - 5.7 g/dLACADIA HEALTHCARE HealthcareAlbumin/Globulin [Mass ratio]1.5 {ratio}[facility] HealthcareALP [Catalytic activity/Vol]109 U/LHigh34 - 104 U/LNOMS HealthcareALT [Catalytic activity/Vol]15 U/L7 - 52 U/LNOMS HealthcareAnion gap [Moles/Vol]10.5 mmol/L6.0 - 15.0NOUT HealthcareAST [Catalytic activity/Vol]18 U/L13 - 39 U/L [facility] HealthcareBilirubin [Mass/Vol]0.5 mg/dL0.3 - 1.0 mg/dLNOUT Healthcare Calcium [Mass/Vol]8.9 mg/dL8.6 - 10.3 mg/dLACADIA HEALTHCARE HealthcareChloride [Moles/Vol] 107 mmol/L98 - 107 mmol/LNOMS HealthcareCO2 [Moles/Vol]23.4 mmol/L21.0 - 31.0 mmol/LNOMS HealthcareCreatinine (U) [Mass/Vol]2.49 mg/dLHigh0.70 - 1.30 mg/dL NOMS HealthcareCREATININE CLR CALC VCWWDWAN24.03NOMS HealthcareGFR/1.73 sq M.predicted MDRD (S/P/Bld) [Vol rate/Area]25.619 mL/min/{1.73_m2}[facility] Globulin (S) [Mass/Vol]2.5 g/dLNOMS HealthcareGlucose [Mass/Vol]241 mg/hNEtnp51 - 100 mg/dLNOMS HealthcareComment on above:Random Glucose Reference Range is dependent on time and content of last meal. Glucose of more than 200 mg/dL in a nonstressed, ambulatory subject supports the diagnosis of Diabetes Mellitus. ADA recommended reference range Interpretation and review of laboratory resultsAbnormalNOMS HealthcarePotassium [Moles/Vol]4.9 mmol/L3.5 - 5.1 mmol/LNOMS HealthcareProtein [Mass/Vol]6.3 g/dL Low6.4 - 8.9 g/dLNOMS HealthcareSodium [Moles/Vol]136 mmol/L136 - 145 mmol/LNOMS HealthcareUrea nitrogen [Mass/Vol]30 mg/dLHigh7 - 25 mg/dLNOMS HealthcareNOUT HealthcareC Urineon 81-65-5874Mtknfapv identified Cx Nom (U)Microbiology PROCEDURE: Urine Culture [R1] SOURCE: U Cath BODY SITE: COLLECTED DATE/TIME: 04/19/2024 15:43 EDT RECEIVED DATE/TIME: 04/19/2024 18:06 EDT START DATE/TIME: 04/19/2024 18:06 EDT FREE TEXT SOURCE: cath Orzech MEAT CUTTING BLOCK REPAIRER, DERMATOLOGY NURSE-C, Orzech MEAT CUTTING BLOCK REPAIRER, DERMATOLOGY NURSE-C, Makayla X Makayla X FINAL REPORTS Final Report [] Verified Date/Time: 04/21/2024 10:35 EDT >100,000 cfu/ml Klebsiella oxytoca SUSCEPTIBILITY RESULTS LEGEND: S=Susceptible, N/R=Not Reported, Blank=Data not available, [...] Locations R1: This test was performed at: [facility], [address] [place] [address], [phone]- , , PqcysqYakfkyEast Liverpool City HospitalComment on above:Performed By: #### [id number] #### [facility] [address] [place] [address]Gjzcawbjfq Visit Summaryon 26-56-5642Osgsyccdep Visit Summary Ambulatory Visit Summary PATSY MILLS :1945 MRN: Visit Date:04/19/2024 Ambulatory Visit Instructions Your Care Team Attending Physician - CARLEY Damian APRN, Makayla Soriano Primary Care Physician - HELEN OCHOA MD This Is Your Medications List aspirin (aspirin 81 mg Chew Tab) atorvastatin (atorvastatin 20 mg Tab) bifidobacterium-lactobacillus (Probiotic + Colostrum) cefdinir (cefdinir 300 mg [...] stent (06/10/2023), ESWL of kidney (06/10/2023), Cystostomy andinsertion of suprapubic tube (03/05/2023), Cystoscopic insertion of ureteric stent (12/10/2022), TURP - Transurethral resection of prostate (08/27/2022), Transurethral insertion of prostatic urethrallift implant (05/05/2022), Cystoscopic removal of ureteric stent (08/20/2012), Cystoscopic ureteroneocystostomy with insertion 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 Medications What How Much When Instructions Unchanged aspirin (aspirin 81 mg Chew Tab) Chewed Every day Unchanged atorvastatin (atorvastatin 20 mg Tab) 1 Tablets By Mouth Every day Unchanged bifidobacterium-lactobacillus (Probiotic + Colostrum) By Mouth Every day [...] 2 times a day take 1 cap morningof cath change and 12hrs after Unchanged oxybutynin [...] you for choosing us for your care. [facility] W Auto Differential panel (Bld)on 27-77-8401Twzjmsypb (Bld) [#/Vol]0.0 10*3/uL0.0 - 0.2 10*3/uLNOMS HealthcareBasophils/100 WBC Manual cnt (Syn fld)0.7 %.NOMS HealthcareEosinophils (Bld) [#/Vol]0.5 10*3/uLHigh0.0 - 0.45 10*3/uLNOMS HealthcareEosinophils/100 WBC Manual cnt (Syn fld)7.7 %.NOMS HealthcareErythrocyte distribution width (RBC) [Ratio]16.1 %High12.0 - 14.8 %NOMS HealthcareHematocrit (Bld) [Volume fraction]29.2 %Low38.8 - 50.0 %NOMS HealthcareHemoglobin (Bld) [Mass/Vol]9.9 g/dLLow13.0 - 17.0 g/dLACADIA HEALTHCARE HealthcareInterpretation and review of laboratory resultsAbnormalNOUT HealthcareLymphocytes (Bld) [#/Vol]0.9 10*3/uLLow1.00 - 4.8 10*3/uLNOMS HealthcareLymphocytes/100 WBC Manual cnt (Syn fld)13.5 %.[facility] CenterH (RBC) [Entitic mass]36.5 soQulf92.5 - 35.2 pgNOSaint Luke's Health SystemHC (RBC) [Mass/Vol]33.9 g/dL32.5 - 35.6 g/dLSSM DePaul Health CenterV (RBC) [Entitic vol] 107.5 qCRgfr75.5 - 101 fLACADIA HEALTHCARE HealthcareMonocytes (Bld) [#/Vol]0.5 10*3/uL0.0 - 0.8 10*3/uLNOUT HealthcareMonocytes+Macrophages/100 WBC Manual cnt (Syn fld)8.3 %.[facility] HealthcareNeutrophils (Bld) [#/Vol]4.6 10*3/uL1.8 - 7.7 10*3/uLNOMS HealthcareNeutrophils/100 WBC Manual cnt (Syn fld)69.8 %.[facility] HealthcareNRBC0.1 /100{WBC}0 - 0.5 /100{WBC}[facility] HealthcarePlatelet mean volume (Bld) [Entitic vol]8.4 fL6.6 - 10.1 fLACADIA HEALTHCARE HealthcarePlatelets (Bld) [#/Vol]196 10*3/uL150 - 450 10*3/uLNOThe Rehabilitation InstituteRBC LM.HPF (Urine sed) [#/Area]2.72 /[HPF]Low3.90 - 5.60NOUT HealthcareWBC (Bld) [#/Vol]6.5 10*3/uL4.1 - 10.5 10*3/uLNOUT Healthcare WBC LM.HPF (Urine sed) [#/Area]6.5 10*3/uL4.1 - 10.5 10*3/uLNOTenet St. Louis HealthcareComprehensive metabolic panelon 91-69-2573Wekebqe [Mass/Vol]3.9 g/dL 3.5 - 5.7 g/dLNOUT HealthcareAlbumin/Globulin [Mass ratio]1.5 {ratio}NOMS HealthcareALP [Catalytic activity/Vol]94 U/L34 - 104 U/LNOMS HealthcareALT [Catalytic activity/Vol]15 U/L7 - 52 U/LNOMS HealthcareAnion gap [Moles/Vol]11.0 mmol/L6.0 - 15.0NOMS HealthcareAST [Catalytic activity/Vol]18 U/L13 - 39 U/L [facility] HealthcareBilirubin [Mass/Vol]0.4 mg/dL0.3 - 1.0 mg/dLNOUT Healthcare Calcium [Mass/Vol]8.9 mg/dL8.6 - 10.3 mg/dLNOUT HealthcareChloride [Moles/Vol] 109 mmol/LHigh98 - 107 mmol/LNOMS HealthcareCO2 [Moles/Vol]22.7 mmol/L21.0 - 31.0 mmol/LNOMS HealthcareCreatinine (U) [Mass/Vol]2.71 mg/dLHigh0.70 - 1.30 mg/dLNOThe Rehabilitation InstituteCREATININE CLR CALC UVWKAVQW61.83NOMS HealthcareGFR/1.73 sq M.predicted MDRD (S/P/Bld) [Vol rate/Area]23.144 mL/min/{1.73_m2}[facility] Globulin (S) [Mass/Vol]2.6 g/dLNOUT HealthcareGlucose [Mass/Vol]103 mg/dJYwlk59 - 100 mg/dLACADIA HEALTHCARE HealthcareComment on above:Random Glucose Reference Range is dependent on time and content of last meal. Glucose of more than 200 mg/dL in a nonstressed, ambulatory subject supports the diagnosis of Diabetes Mellitus. ADA recommended reference range Interpretation and review of laboratory resultsAbnormalNOMS HealthcarePotassium [Moles/Vol]4.7 mmol/L3.5 - 5.1 mmol/LNOMS HealthcareProtein [Mass/Vol]6.5 g/dL 6.4 - 8.9 g/dLNOUT HealthcareSodium [Moles/Vol]138 mmol/L136 - 145 mmol/LNOMS HealthcareUrea nitrogen [Mass/Vol]31 mg/dLHigh7 - 25 mg/dLNORichland CenterC Urineon 67-13-9622Fcvaasan identified Cx Nom (U)Microbiology PROCEDURE: Urine Culture [R1] SOURCE: U Suprapubic BODY SITE: COLLECTED DATE/TIME: 03/15/2024 14:58 EDT RECEIVED DATE/TIME: 03/15/2024 18:05 EDT START DATE/TIME: 03/15/2024 18:05 EDT FREE TEXT SOURCE: suprapubic per chart Orzech MEAT CUTTING BLOCK REPAIRER, DERMATOLOGY NURSE-C, Orzech MEAT CUTTING BLOCK REPAIRER, DERMATOLOGY NURSE-C, Makayla X Makayla X FINAL REPORTS Final Report [] Verified Date/Time: 03/18/2024 13:04 EDT 50,000 cfu/ml Staphylococcus epidermidis 15,000 cfu/ml Stenotrophomonas maltophilia SUSCEPTIBILITY RESULTS LEGEND: S=Susceptible, N/R=Not Reported, Blank=Data not available, [...] Locations R1: This test was performed at: [facility], [address] [place] [address], [phone]- , , CjmborFckgdhEast Liverpool City HospitalComment on above:Performed By: #### [id number] #### [facility] [address] [place] [address]Fdwenin aminotransferase [Enzymatic activity/volume] in Serum or PlasmaOrdered By: Brook Huddleston on 28-87-7919GRM [Catalytic activity/Vol]13 U/L 7-52[facility] – JacksonAlbumin [Mass/volume] in Serum or Plasma by Bromocresol green (BCG) dye binding methoOrdered By: Price Crain on 02-29-2024 Albumin BCG dye [Mass/Vol]3.8 g/dL3.5-5.7FChildren's Hospital for Rehabilitation Albumin [Mass/volume] in Serum or Plasma by Bromocresol green (BCG) dye binding methoOrdered By: Brook Huddletson on 63-56-0464Dytperd BCG dye [Mass/Vol]3.9 g/dL 3.5-5.7FChildren's Hospital for RehabilitationAlkaline phosphatase [Enzymatic activity/volume] in Serum or PlasmaOrdered By: Brook Huddleston on 47-07-1359CGU [Catalytic activity/Vol]90 U/I13-911QialoomavHolzer Medical Center – JacksonAspartate aminotransferase [Enzymatic activity/volume] in Serum or PlasmaOrdered By: Brook Huddleston on 87-86-3079HIR [Catalytic activity/Vol]16 U/J65-33IkcvkgootHolzer Medical Center – JacksonBasophils Auto (Bld) [#/Vol]Ordered By: Brook Huddleston on 02-29-2024 Basophils (Bld) [#/Vol]0.0 10*3/uL0.0-0.2FChildren's Hospital for Rehabilitation Basophils/100 WBC Auto (Bld)Ordered By: Brook Huddleston on 88-10-1225Vrfrvwnzw/100 WBC (Bld)0.4 %.[facility] – JacksonBilirubin.total [Mass/volume] in Serum or PlasmaOrdered By: Brook Huddleston on 89-18-0766Jzmccvomz [Mass/Vol]0.5 mg/dL 0.3-1.0[facility] – JacksonCalcium [Mass/volume] in Serum or Plasma Ordered By: Price Crain on 17-39-6969Qkmaopk [Mass/Vol]9.1 mg/dL8.6-10.3 [facility] – JacksonCalcium [Mass/volume] in Serum or PlasmaOrdered By: Brook Huddleston on 28-24-8951Grdfaca [Mass/Vol]9.5 mg/dL8.6-10.3FChildren's Hospital for RehabilitationCarbon dioxide, total [Moles/volume] in Serum or Plasma Ordered By: Price Crain on 01-60-3686CM8 [Moles/Vol]25.1 mmol/L21.0-31.0 [facility] – JacksonCarbon dioxide, total [Moles/volume] in Serum or PlasmaOrdered By: Brook Huddleston on 25-60-3116WB1 [Moles/Vol]26.4 mmol/L21.0-31.0 [facility] – JacksonChloride [Moles/volume] in Serum or Plasma Ordered By: Price Crain on 89-37-1332Zapkytsd [Moles/Vol]108 mmol/TQiwt01-597 [facility] – JacksonChloride [Moles/volume] in Serum or Plasma Ordered By: Brook Huddleston on 07-39-2826Nqnvyvfi [Moles/Vol]108 mmol/BCyvk49-723 [facility] – JacksonCreatinine [Mass/volume] in Serum or Plasma Ordered By: Azrajinder Bakisaaks on 02-33-3293Ylxsagnetx [Mass/Vol]2.29 mg/dLHigh 0.70-1.30[facility] – JacksonCreatinine [Mass/volume] in Serum or PlasmaOrdered By: Brook Huddleston on 53-92-3677Uzdkcrnkza [Mass/Vol]2.28 mg/dLHigh 0.70-1.30[facility] – JacksonCreatinine [Mass/volume] in Urine Ordered By: Price Crain on 59-25-9498Okyhboxpei (U) [Mass/Vol]120.00 mg/dL [facility] – JacksonComment on above:No reference range established Eosinophils Auto (Bld) [#/Vol]Ordered By: Brook Huddleston on 78-94-8336Vtkrpdxkpex (Bld) [#/Vol]0.5 10*3/uLHigh0.0-0.45[facility] Eosinophils/100 WBC Auto (Bld)Ordered By: Brook Huddleston on 85-55-5916Tlcycyehcsc/100 WBC (Bld)7.3 %.[facility] – JacksonErythrocyte distribution width Auto (RBC) [Ratio]Ordered By: Brook Huddleston on 52-32-3298Qaddeyjebes distribution width (RBC) [Ratio]16.5 %High12.0-14.8[facility] – JacksonGlobulin Calc (S) [Mass/Vol]Ordered By: Brook Huddleston on 54-21-8723Jafihawk (S) [Mass/Vol]2.5 g/dLHolzer Medical Center – JacksonGlucose [Mass/volume] in Serum or Plasma Ordered By: Price Crain on 07-06-0844Tdakdpt [Mass/Vol]92 mg/vM81-650JdkxwwpxoHolzer Medical Center – JacksonComment on above:ADA recommended reference rangeRandom Glucose Reference Range is dependent on time and content of last meal. Glucose of more than 200 mg/dL in a nonstressed, ambulatory subject supports the diagnosisof Diabetes Mellitus.Glucose [Mass/volume] in Serum or PlasmaOrdered By: Brook Huddleston on 32-56-9781Svzaylf [Mass/Vol]95 mg/lX21-472XkdfaucctHolzer Medical Center – JacksonComment on above:ADA recommended reference rangeRandom Glucose Reference Range is dependent on time and content of last meal. Glucose of more than 200 mg/dL in a nonstressed, ambulatory subject supports the diagnosisof Diabetes Mellitus.Hematocrit Auto (Bld) [Volume fraction]Ordered By: Brook Huddleston on 14-40-3304Bjcmmnnrsw (Bld) [Volume fraction]28.0 %Low38.8-50.0[facility] – JacksonHemoglobin [Mass/volume] in BloodOrdered By: Brook Huddleston on 34-39-0702Pzmlwrfgcg (Bld) [Mass/Vol]9.5 g/dLLow13.0-17.0[facility] – JacksonLeukocytes [#/volume] corrected for nucleated erythrocytes in Blood by Automated counOrdered By: Brook Huddleston on 14-29-2525PLQ corrected for nucl RBC Auto (Bld) [#/Vol]7.2 10*3/uL4.1-10.5FChildren's Hospital for Rehabilitation Lymphocytes Auto (Bld) [#/Vol]Ordered By: Brook Huddleston on 49-15-6692Gfaovuxgjfk (Bld) [#/Vol]1.3 10*3/uL1.00-4.8[facility] – JacksonLymphocytes/100 WBC Auto (Bld)Ordered By: Brook Huddleston on 44-66-8667Ivxmobqiqum/100 WBC (Bld)18.2 %.[facility] CenterH Auto (RBC) [Entitic mass]Ordered By: Brook Huddleston on 16-95-6834WDI (RBC) [Entitic mass]36.4 ftDbze12.5-35.2FChildren's Hospital for RehabilitationMCHC Auto (RBC) [Mass/Vol]Ordered By: Brook Huddleston on 83-75-5539RTWT (RBC) [Mass/Vol]34.1 g/dL32.5-35.6FChildren's Hospital for RehabilitationMCV Auto (RBC) [Entitic vol]Ordered By: Brook Huddleston on 60-50-0646SBB (RBC) [Entitic vol]106.8 xEUivm63.5-101[facility] – JacksonMagnesium [Mass/volume] in Serum or PlasmaOrdered By: Price Crain on 13-60-7589Hsecyzotw [Mass/Vol]2.0 mg/dL1.9-2.7FChildren's Hospital for RehabilitationMicroalbumin [Mass/volume] in UrineOrdered By: Price Crain on 55-63-9407Ronufiz DL <= 20 mg/L (U) [Mass/Vol]mg/dLHigh0.0-1.8[facility] – JacksonMonocytes Auto (Bld) [#/Vol]Ordered By: Brook Huddleston on 61-30-7573Ffgjsmidr (Bld) [#/Vol]0.5 10*3/uL0.0-0.8[facility] – JacksonMonocytes/100 WBC Auto (Bld) Ordered By: Brook Huddleston on 76-54-3004Nqqwdpnlf/100 WBC (Bld)7.2 %.[facility] – JacksonNeutrophils Auto (Bld) [#/Vol]Ordered By: Brook Huddleston on 34-36-6121Hcevcbaezeo (Bld) [#/Vol]4.8 10*3/uL1.8-7.7FChildren's Hospital for RehabilitationNeutrophils/100 WBC Auto (Bld)Ordered By: Brook Huddleston on 02-29-2024 Neutrophils/100 WBC (Bld)66.9 %.[facility] – JacksonNo Panel InformationOrdered By: Price Crain on 08-62-8196Qihlvvgfw GFR (CKD-EPI)28.327 mL/MinHolzer Medical Center – JacksonPharmacy Creatinine Clearance (ChemN/A [facility] – JacksonNo Panel InformationOrdered By: Brook Huddleston on 41-28-9506Tyldsdigx GFR (CKD-EPI)28.476 mL/MinHolzer Medical Center – Jackson Pharmacy Creatinine Clearance (Chem29.52[facility] Nucleated erythrocytes [Presence] in Blood by Automated countOrdered By: Brook Huddleston on 44-35-3268Copxwigtv RBC Auto Ql (Bld)0.0 /100{WBC}0-0.5FChildren's Hospital for RehabilitationPhosphate [Mass/volume] in Serum or PlasmaOrdered By: Price Crain on 80-63-5923Ndetpaows [Mass/Vol]3.2 mg/dL2.5-4.5FChildren's Hospital for RehabilitationPlatelet mean volume Auto (Bld) [Entitic vol]Ordered By: Brook Huddleston on 38-66-5237Hojtuaul mean volume (Bld) [Entitic vol]7.7 fL6.6-10.1 [facility] – JacksonPlatelets Auto (Bld) [#/Vol]Ordered By: Brook Huddleston on 59-60-8748Bpaammekp (Bld) [#/Vol]171 10*3/oL968-712MsnyucyluHolzer Medical Center – JacksonPotassium [Moles/volume] in Serum or PlasmaOrdered By: Price Crain on 18-07-1749Kdabgilsi [Moles/Vol]4.7 mmol/L3.5-5.1FChildren's Hospital for RehabilitationPotassium [Moles/volume] in Serum or PlasmaOrdered By: Brook Huddleston on 82-33-0277Ybgvxvnyy [Moles/Vol]4.6 mmol/L3.5-5.1FChildren's Hospital for RehabilitationProstate specific Ag [Mass/volume] in Serum or PlasmaOrdered By: Helen Ochoa on 62-53-2573Otziieia specific Ag [Mass/Vol]0.840 ng/mL0.000-4.000 [facility] – JacksonComment on above:Serial tumor marker results determined by assays using different manufacturers or methods may not be comparable.[facility] commodity specialist and method:[employer] DXI, CHEMILUMINESCENT IMMUNOASSAY.Protein [Mass/volume] in Serum or PlasmaOrdered By: Brook Huddleston on 07-07-1448Fbpegya [Mass/Vol]6.4 g/dL6.4-8.9[facility] – JacksonProtein [Mass/volume] in UrineOrdered By: Price Crain on 14-73-0033Uxnmkqy (U) [Mass/Vol]148 mg/dLHigh0-9[facility] – JacksonRBC Auto (Bld) [#/Vol]Ordered By: Brook Huddleston on 77-40-9031WDK (Bld) [#/Vol] 2.62 10*6/uLLow3.90-5.60[facility]oledo Hospitalerum or plasma albumin/globulin mass ratioOrdered By: Brook Huddleston on 52-75-8196Soetfdu/Globulin [Mass ratio]1.6 {ratio}[facility]edo Hospitalerum or plasma anion gap determinationOrdered By: Price Crain on 49-93-8962Dkslc gap [Moles/Vol]9.6 mmol/L6.0-15.0T[facility]edo Hospitalerum or plasma anion gap determinationOrdered By: Brook Huddleston on 82-09-3679Zozym gap [Moles/Vol]7.2 mmol/L 6.0-15.0Toledo Hospitalodium [Moles/volume] in Serum or PlasmaOrdered By: Price Crain on 46-50-6924Coltrm [Moles/Vol]138 mmol/V901-217 [facility] Hospitalodium [Moles/volume] in Serum or PlasmaOrdered By: Brook Huddleston on 79-91-6552Cugzoj [Moles/Vol]137 mmol/N517-218AlhjjrkrtHolzer Medical Center – JacksonUrate [Mass/volume] in Serum or PlasmaOrdered By: Price Crain on 78-61-0949Kaccp [Mass/Vol]5.1 mg/dL4.4-7.6FChildren's Hospital for RehabilitationUrea nitrogen [Mass/volume] in Serum or PlasmaOrdered By: Price Crain on 04-92-2088Ntqi nitrogen [Mass/Vol]27 mg/dLWelch Community Hospital725Hol[facility] Center – JacksonUrea nitrogen [Mass/volume] in Serum or PlasmaOrdered By: Brook Huddleston on 77-80-1976Gkvf nitrogen [Mass/Vol]27 mg/dL98 Reyes StreetUrine microalbumin/creatinine mass ratioOrdered By: Price Crain on 84-77-5434Ykgewmp/Creatinine DL <= 20 mg/L (U) [Mass ratio]TNPHolzer Medical Center – JacksonComment on above:Test not performedUrine protein/creatinine ratio Ordered By: Price Crain on 83-57-1229Bwcmpyq/Creatinine (U) [Ratio]1233 mg/g{Cre}High0-200[facility] – JacksonVitamin D+Metabolites [Mass/volume] in Serum or PlasmaOrdered By: Price Crain on 22-83-9595Lcbuqfo D+Metabolites [Mass/Vol]66.8 ng/jM12-335UmmdmpfciHolzer Medical Center – JacksonComment on above:VITAMIN D STATUS 25(OH)VITAMIN D RANGE (ng/mL) Deficient <20 Insufficient 20 to <88Pebzqosekj30 to 100Reference: Dieudonne ABEL,Brendon GUERRA, Estrella CARTER, et al. Evaluation,treatment, and prevention of vitamin D deficiency; an Endocrine Society clinical practice guideline. JCEM. 2010; 96 (7):1911-30.WBC Auto (Bld) [#/Vol]Ordered By: Brook Huddleston on 22-12-2049OGB (Bld) [#/Vol]7.2 10*3/uL4.1-10.5FChildren's Hospital for RehabilitationCreatinine (Bld) [Mass/Vol]Ordered By: Orquidea Issa on 94-27-4593Etbamtrjnx [Mass/Vol]2.5 mg/dLHigh 0.6-1.3FChildren's Hospital for RehabilitationComment on above:ER/ESD physician is notified/shown all ISTAT results.Critical values may be confirmed by laboratory testing ifdeemed necessary by ER attending doctor.No Panel InformationOrdered By: Orquidea Issa on [id number] Estimated GFR (eGFR)25.496[facility] JacksonAmbulatory Visit Summaryon [id number] Visit Summary Ambulatory Visit Summary PATSY MILLS :1945 Visit Date:02/24/2024 Ambulatory Visit Instructions Your Care Team Attending Physician - Diego RICKS, Orquidea Taylor Primary Care Physician - DON RICKS, HELEN This Is Your Medications List aspirin (aspirin 81 mg Chew Tab) atorvastatin (atorvastatin 20 mg Tab) bifidobacterium-lactobacillus (Probiotic + Colostrum) cefdinir (cefdinir 300 mg [...] stent (06/10/2023), ESWL of kidney (06/10/2023), Cystostomy andinsertion of suprapubic tube (03/05/2023), Cystoscopic insertion of ureteric stent (12/10/2022), TURP - Transurethral resection of prostate (08/27/2022), Transurethral insertion of prostatic urethrallift implant (05/05/2022), Cystoscopic removal of ureteric stent (08/20/2012), Cystoscopic ureteroneocystostomy with insertion 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 What to do next Scheduled Follow-Up Appointments Thursday 2:30 PM EDT With: CARLEY Damian APRN, Makayla Soriano [facility]Operative Reporton [id number] Report [id number]#1.00UC HealthRAD - MISCon 15-10-2762IKA - MISC [id number]#1.00UC HealthAlanine aminotransferase [Enzymatic activity/volume] in Serum or Plasma Ordered By: Brook Huddleston on 95-15-0489APZ [Catalytic activity/Vol]20 U/L7-52 [facility] JacksonAlbumin [Mass/volume] in Serum or PlasmaOrdered By: Brook Huddleston on 77-74-3830Ucpvnoe [Mass/Vol]3.2 g/dL2.9-4.4FChildren's Hospital for RehabilitationAlbumin [Mass/volume] in Serum or Plasma by Bromocresol green (BCG) dye binding methoOrdered By: Brook Huddleston on 06-33-1944Czzkrpa BCG dye [Mass/Vol]3.6 g/dL3.5-5.7FChildren's Hospital for RehabilitationAlbumin/Protein.total in 24 hour Urine by ElectrophoresisOrdered By: Brook Huddleston on 24-33-8270Oravrfv Elph (24H U) [Mass fraction]42.1 %.[facility] – JacksonAlkaline phosphatase [Enzymatic activity/volume] in Serum or PlasmaOrdered By: Brook Huddleston on 87-78-7285MUH [Catalytic activity/Vol]101 U/S24-513RqjkmbuehHolzer Medical Center – JacksonAspartate aminotransferase [Enzymatic activity/volume] in Serum or Plasma Ordered By: Brook Huddleston on 89-69-0121YMG [Catalytic activity/Vol]22 U/L13-39 [facility] JacksonBasophils Auto (Bld) [#/Vol]Ordered By: Brook Huddleston on 27-48-5334Zyghdevxo (Bld) [#/Vol]0.0 10*3/uL0.0-0.2FChildren's Hospital for RehabilitationBasophils/100 WBC Auto (Bld)Ordered By: Brook Huddleston on 2024 Basophils/100 WBC (Bld)0.1 %.[facility] JacksonBilirubin.total [Mass/volume] in Serum or PlasmaOrdered By: Brook Huddleston on 48-82-1113Tkwjinibs [Mass/Vol]0.5 mg/dL0.3-1.0[facility] JacksonCalcium [Mass/volume] in Serum or PlasmaOrdered By: Brook Huddleston on 96-51-5923Ajrlwdt [Mass/Vol]8.5 mg/dLLow8.6-10.3FChildren's Hospital for RehabilitationCarbon dioxide, total [Moles/volume] in Serum or PlasmaOrdered By: Brook Huddleston on 53-87-1770EF9 [Moles/Vol]21.8 mmol/L21.0-31.0[facility] JacksonChloride [Moles/volume] in Serum or PlasmaOrdered By: Brook Huddleston on 17-60-3811Eoucjpyx [Moles/Vol]107 mmol/H10-901ZjxllqwhqHolzer Medical Center – JacksonCreatinine [Mass/volume] in Serum or PlasmaOrdered By: Brook Huddleston on 81-14-4148Tonlmfuagl [Mass/Vol]2.82 mg/dLHigh0.70-1.30[facility] JacksonEosinophils Auto (Bld) [#/Vol]Ordered By: Brook Huddleston on 06-55-2616Uraparcayjf (Bld) [#/Vol] 0.2 10*3/uL0.0-0.45[facility] JacksonEosinophils/100 WBC Auto (Bld)Ordered By: Brook Huddleston on 61-35-2994Ajdmypxxlrg/100 WBC (Bld)1.3 %.[facility] – JacksonErythrocyte distribution width Auto (RBC) [Ratio]Ordered By: Brook Huddleston on 60-90-8128Nvmwnxgpzmy distribution width (RBC) [Ratio]16.6 % High12.0-14.8[facility] – JacksonGamma globulin/Protein.total in 24 hour Urine by ElectrophoresisOrdered By: Brook Huddleston on 89-88-1894Jozcx globulin Elph (24H U) [Mass fraction]22.0 %.[facility] – JacksonGlobulin Calc (S) [Mass/Vol]Ordered By: Brook Huddleston on 67-39-3672Kbacfotn (S) [Mass/Vol]2.6 g/dLHolzer Medical Center – JacksonGlucose [Mass/volume] in Serum or Plasma Ordered By: Brook Huddleston on 76-91-6365Rzlceww [Mass/Vol]220 mg/fVDdzy04-966 [facility] – JacksonComment on above:ADA recommended reference rangeRandom Glucose Reference Range is dependent on time and content of last meal. Glucose of more than 200 mg/dL in a nonstressed, ambulatory subject supports the diagnosisof Diabetes Mellitus.Hematocrit Auto (Bld) [Volume fraction]Ordered By: Brook Huddleston on 34-69-2146Caebksqzll (Bld) [Volume fraction] 25.2 %Low38.8-50.0[facility] – JacksonHemoglobin [Mass/volume] in BloodOrdered By: Brook Huddleston on 16-02-7496Bpbcdivjey (Bld) [Mass/Vol]8.3 g/dLLow 13.0-17.0[facility] JacksonIgA [Mass/volume] in Serum or Plasma Ordered By: Brook Huddleston on 08-69-3262CgR [Mass/Vol]220 mg/lZ37-076PijxekkcmHolzer Medical Center – JacksonIgG [Mass/volume] in Serum or PlasmaOrdered By: Brook Huddleston on 08-96-4471CnS [Mass/Vol]1130 mg/nD766-3131OloelaycmHolzer Medical Center – Jackson IgM [Mass/volume] in Serum or PlasmaOrdered By: Brook Huddleston on 52-56-9953BwI [Mass/Vol]61 mg/bY06-115FmdbfvowmHolzer Medical Center – JacksonComment on above: Performed at: [address] [id number] Director: Melchor Agrawal PhD, Phone: [phone] for Urine Ordered By: Brook Huddleston on 05-15-7341Xwpgrgbogjhxne Immunofixation (U) [Interp] Comment:.[facility] – JacksonComment on above:Presence of monoclonal protein is unclear at this time. Suggestrepeat in 3 to 6 months if clinically indicated.Performed at: [facility] [id number] Director: Melchor Agrawal PhD, Phone: [phone] light chains.kappa.free [Mass/volume] in SerumOrdered By: Brook Huddleston on 79-79-4755Nxrpgtonlixdrc light chains.kappa.free (S) [Mass/Vol]55.9 mg/LHigh 3.3-19.4FChildren's Hospital for RehabilitationImmunoglobulin light chains.kappa.free/Immunoglobulin light chains.lambda.free [MassOrdered By: Brook Huddleston on 01-48-9615Fnxlokvehgvqul light chains.kappa.free/Immunoglobulin light chains.lambda.free (S) [Mass ratio]1.530.26-1.65[facility] – JacksonComment on above:Performed at: [facility] [id number] Director: Melchor Agrawal PhD, Phone: [phone] Immunoglobulin light chains.lambda.free [Mass/volume] in Serum or PlasmaOrdered By: Brook Huddleston on 47-57-3862Qqeymrphorqwhh light chains.lambda.free [Mass/Vol] 36.6 mg/LHigh5.7-26.3FChildren's Hospital for RehabilitationLab Reportson 2024 Lab [id number]#1.00TIFFNormalFisher [facility]itan HospitalLab [id number]#1.00TIFFNormal Rhodes [facility]aritan HospitalLactate dehydrogenase [Enzymatic activity/volume] in Serum or Plasma by Lactate to pyOrdered By: Brook Huddleston on 50-21-2624QAN Lactate to pyruvate reaction [Catalytic activity/Vol]157 U/B431-442BnrzncloxHolzer Medical Center – JacksonLeukocytes [#/volume] corrected for nucleated erythrocytes in Blood by Automated counOrdered By: Brook Huddleston on 14-29-1518IUM corrected for nucl RBC Auto (Bld) [#/Vol]12.2 10*3/uLHigh4.1-10.5FChildren's Hospital for Rehabilitation Lymphocytes Auto (Bld) [#/Vol]Ordered By: Brook Huddleston on 86-05-8246Phngbkftqek (Bld) [#/Vol]0.5 10*3/uLLow1.00-4.8[facility] Lymphocytes/100 WBC Auto (Bld)Ordered By: Brook Huddleston on 00-03-8077Jdaagvqaxwh/100 WBC (Bld)4.1 %.[facility] Medical CenterH Auto (RBC) [Entitic mass] Ordered By: Brook Huddleston on 69-13-5455KDQ (RBC) [Entitic mass]35.9 vpBspk54.5-35.2 [facility] – JacksonMCHC Auto (RBC) [Mass/Vol]Ordered By: Brook Huddleston on 31-27-7580CYZO (RBC) [Mass/Vol]33.1 g/dL32.5-35.6FChildren's Hospital for RehabilitationMCV Auto (RBC) [Entitic vol]Ordered By: Brook Huddleston on 63-80-7098JCY (RBC) [Entitic vol]108.4 kCFdqz74.5-101[facility] – JacksonMonocytes Auto (Bld) [#/Vol]Ordered By: Brook Huddleston on 86-05-8718Evbtsskuw (Bld) [#/Vol]0.6 10*3/uL0.0-0.8[facility] JacksonMonocytes/100 WBC Auto (Bld) Ordered By: Broko Huddleston on 06-95-5802Hnsbmbkxm/100 WBC (Bld)5.0 %.[facility] – JacksonNeutrophils Auto (Bld) [#/Vol]Ordered By: Brook Huddleston on 95-58-3518Gfubtbuzdgn (Bld) [#/Vol]11.0 10*3/uLHigh1.8-7.7FChildren's Hospital for RehabilitationNeutrophils/100 WBC Auto (Bld)Ordered By: Brook Huddleston on 2024 Neutrophils/100 WBC (Bld)89.5 %.[facility] – JacksonNo Panel InformationOrdered By: Brook Huddleston on 45-64-9426Jdmymlikm GFR (CKD-EPI)22.203 mL/MinHolzer Medical Center – JacksonPharmacy Creatinine Clearance (Chem24.26 [facility] – JacksonProtein Electrophoresis M-SpikeNot observed g/dLNot ObservedHolzer Medical Center – JacksonProtein Electrophoresis NoteSee comment.[facility] – JacksonComment on above:Protein electrophoresis scan will follow via computer,mail, or camera supervisor delivery.Performed at: [facility] [id number] Director: Melchor Agrawal PhD, Phone: [phone] Random Prot Electrophor NoteSee comment.[facility] – JacksonComment on above: Protein electrophoresis scan will follow via computer,mail, or camera supervisor delivery.Performed at: [facility] [place] [id number] Director: Melchor Agrawal PhD, Phone: [phone] erythrocytes [Presence] in Blood by Automated countOrdered By: Brook Huddleston on 86-67-5863Nkczponwp RBC Auto Ql (Bld)0.0 /100{WBC}0-0.5FChildren's Hospital for RehabilitationOperative Reporton 27-40-4168Cnyrlwrov Report [id number]#1.00TIFFNormalGrant HospitalPlatelet mean volume Auto (Bld) [Entitic vol]Ordered By: Brook Huddleston on 21-37-9996Lyorgmgd mean volume (Bld) [Entitic vol]7.5 fL6.6-10.1FChildren's Hospital for RehabilitationPlatelets Auto (Bld) [#/Vol]Ordered By: Brook Huddleston on 95-98-4808Vfktsrsse (Bld) [#/Vol]196 10*3/uZ547-442DzvyiozldHolzer Medical Center – JacksonPotassium [Moles/volume] in Serum or PlasmaOrdered By: Brook Huddleston on 20-13-4123Keqaljqbw [Moles/Vol]4.6 mmol/L3.5-5.1FChildren's Hospital for RehabilitationProtein [Mass/volume] in Serum or PlasmaOrdered By: Brook Huddleston on 72-86-7345Oujgkcv [Mass/Vol]6.2 g/dLLow6.4-8.9[facility] Protein [Mass/Vol]6.4 g/dL6.0-8.5FChildren's Hospital for RehabilitationProtein [Mass/volume] in UrineOrdered By: Brook Huddleston on 49-77-1137Nnzbopq (U) [Mass/Vol] 289.2 mg/dLNot Estab.[facility] – JacksonComment on above:Results confirmed ondilution.Protein.monoclonal/Protein.total in 24 hour Urine by ElectrophoresisOrdered By: Brook Huddleston on 76-83-9153Oxploay.monoclonal Elph (24H U) [Mass fraction]Comment: %Not ObservedHolzer Medical Center – JacksonComment on above:UPE shows asymmetrical gamma.RBC Auto (Bld) [#/Vol]Ordered By: Brook Huddleston on 72-35-1153BOZ (Bld) [#/Vol]2.33 10*6/uLLow3.90-5.60[facility] Hospitalerum globulin measurement (mass/volume)Ordered By: Brook Huddleston on 81-36-2785Fmsdvjmy (S) [Mass/Vol]3.2 g/dL2.2-3.9[facility]edo Hospitalerum or plasma albumin/globulin mass ratioOrdered By: Brook Huddleston on 18-53-4293Putzjpo/Globulin [Mass ratio]1.4 {ratio}[facility] JacksonAlbumin/Globulin [Mass ratio]1.0 {ratio}0.7-1.7FOhio State Harding Hospitalerum or plasma alpha 1 globulin measurement by electrophoresis (mass/volume)Ordered By: Brook Huddleston on 27-05-6487Whmlu 1 globulin Elph [Mass/Vol] 0.4 g/dL0.0-0.4FOhio State Harding Hospitalerum or plasma alpha 2 globulin measurement by electrophoresis (mass/volume)Ordered By: Brook Huddleston on 2024 Alpha 2 globulin Elph [Mass/Vol]0.9 g/dL0.4-1.0[facility] Serum or plasma anion gap determinationOrdered By: Brook Huddleston on 70-54-1016Llzam gap [Moles/Vol]11.8 mmol/L6.0-15.0[facility] Hospitalerum or plasma beta globulin measurement by electrophoresis (mass/volume)Ordered By: Brook Huddelston on 81-74-1370Lqva globulin Elph [Mass/Vol]0.8 g/dL0.7-1.3FOhio State Harding Hospitalerum or plasma gamma globulin measurement by electrophoresis (mass/volume)Ordered By: Brook Huddleston on 50-00-7196Czfkf globulin Elph [Mass/Vol]1.0 g/dL0.4-1.8[facility] Hospitalerum or plasma homocysteine measurement (moles/volume)Ordered By: Brook Huddleston on 2024 Homocysteine [Moles/Vol]10.3 umol/L0.0-19.2FChildren's Hospital for Rehabilitation Comment on above:Performed at: [address] [id number] Director: Melchor Agrawal PhD, Phone: [phone] [Moles/Vol]Serum or plasma homocysteine measurement (moles/volume)0.0-19.2 [facility] – JacksonComment on above:Performed at: [facility] Install[employer]et[employer] [id number] Director: Melchor Agrawal PhD, Phone: [phone] or plasma methylmalonate measurement (moles/volume) Ordered By: Brook Huddleston on 69-94-8521Yobwpplrasjpkb [Moles/Vol]347 nmol/L0-378 [facility] – JacksonComment on above:This test was developed and its performance characteristicsdetermined by [employer]. It has not been cleared orapproved by the Food and Drug Administration.Performed at: [address] [id number] Director: Aliya Curtis MD, Phone: [phone] [Moles/Vol]Serum or plasma methylmalonate measurement (moles/volume)0-378[facility] – JacksonComment on above:This test was developed and its performance characteristicsdetermined by [employer]. It has not been cleared orapproved by the Food and Drug Administration.Performed at: [facility] [address], [place] [id number] Director: Aliya Curtis MD, Phone: [phone] [Moles/volume] in Serum or PlasmaOrdered By: Brook Huddleston on 46-65-7217Hlfsgu [Moles/Vol]136 mmol/Z052-365OsciqltzhHolzer Medical Center – JacksonUrea nitrogen [Mass/volume] in Serum or PlasmaOrdered By: Brook Huddleston on 84-62-8562Dwyt nitrogen [Mass/Vol]36 mg/dLHigh7-25[facility] – JacksonUrine alpha 1 globulin/total protein by electrophoresisOrdered By: Brook Huddleston on 2024 Alpha 1 globulin Elph (U) [Mass fraction]6.0 %.[facility] Urine alpha 2 globulin/total protein ratio by electrophoresisOrdered By: Brook Huddleston on 14-02-0632Jceqt 2 globulin Elph (U) [Mass fraction]13.5 %.[facility] – JacksonUrine beta globulin measurement by electrophoresis (mass/volume)Ordered By: Brook Huddleston on 80-19-8524Opxl globulin Elph (U) [Mass/Vol]16.4 %.[facility] – JacksonWBC Auto (Bld) [#/Vol]Ordered By: Brook Huddleston on 96-38-5205LWR (Bld) [#/Vol]12.2 10*3/uLHigh4.1-10.5FChildren's Hospital for RehabilitationLab Reportson 04-03-3867Sem Reports [id number]#1.00TIFFNormOhio State Harding HospitalConsent for Procedure/Surgeryon 00-91-0283Psauekk for Procedure/Surgery [id number]#1.00TIFFrmOhio State Harding HospitalConsent for Procedure/Surgery [id number]#1.00TIFACMC Healthcare SystemLab Reportson 49-86-5097Zme Reports [id number]#1.00[facility] HealthLab [id number]#1.00UC HealthAmbulatory Visit Summaryon 47-42-0966Dsciymcqtl Visit Summary PATSY MILLS :1945 Visit Date:01/28/2024 Ambulatory Visit Instructions Your [...] Orquidea Taylor Primary Care Physician - HELEN OCHOA MD This Is Your Medications List Contact prescribing physician if questions or concerns aspirin (aspirin 81 mg Chew Tab) atorvastatin (atorvastatin 20 mg Tab) bifidobacterium-lactobacillus (Probiotic + Colostrum) cefdinir (cefdinir 300 mg [...] stent (06/10/2023), ESWL of kidney (06/10/2023), Cystostomy andinsertion of suprapubic tube (03/05/2023), Cystoscopic insertion of ureteric stent (12/10/2022), TURP - Transurethral resection of prostate (08/27/2022), Transurethral insertion of prostatic urethrallift implant (05/05/2022), Cystoscopic removal of ureteric stent [...] prescribing physician if questions or concerns Unchanged bifidobacterium-lactobacillus (Probiotic + Colostrum) By Mouth Every day [...] 2 times a day take 1 cap morningof cath change and 12hrs after Contact prescribing [...] Rheumatoid arthritis Ureteral stricture (more content not included)...[facility] :1945 Visit Date:01/28/2024 Ambulatory Visit Instructions Your [...] Orquidea Taylor Primary Care Physician - HELEN OCHOA MD This Is Your Medications List Contact prescribing physician if questions or concerns aspirin (aspirin 81 mg Chew Tab) atorvastatin (atorvastatin 20 mg Tab) bifidobacterium-lactobacillus (Probiotic + Colostrum) cefdinir (cefdinir 300 mg [...] stent (06/10/2023), ESWL of kidney (06/10/2023), Cystostomy andinsertion of suprapubic tube (03/05/2023), Cystoscopic insertion of ureteric stent (12/10/2022), TURP - Transurethral resection of prostate (08/27/2022), Transurethral insertion of prostatic urethrallift implant (05/05/2022), Cystoscopic removal of ureteric stent [...] prescribing physician if questions or concerns Unchanged bifidobacterium-lactobacillus (Probiotic + Colostrum) By Mouth Every day [...] 2 times a day take 1 cap morningof cath change and 12hrs after Contact prescribing [...] Rheumatoid arthritis Ureteral stricture (more content not included)...[facility] HospitalPatient Education on 94-58-3570Qijugsy EducationUrology Sacral Nerve Stimulator Implantation Sacral nerve stimulator [...] including vitamins, herbs, eye drops, creams, and spqs-hlb-ekilqnr medicines. ? Any problems you or family [...] tells you to take them. ? Taking vqyf-nwj-hjexmwm medicines, vitamins, herbs, and supplements. General instructions [...] taken to help prevent infection. These steps mayinclude: ? Removing hair at the surgery site. [...] needles will be guided to the place wherethe nerves exit the backbone. ? The position [...] the skin in yo (more content not included)...[facility] HospitalUrology Office/Clinic Noteon 81-68-4123Icgjzdp Office/Clinic NoteChief Complaint Pt is here to discuss stent [...] 7 days sent empirically. Pt presented to [facility] ED 01/19/24. UCx 01/19/24 - >100k K. oxytoca, lane sensitive. Blood cx neg. ANA 01/20/24 [facility]. Dysuria: denies Incomplete bladder emptying: Has Gunn Hematuria: denies Leaking: denies Abdominal pain: denies Flank pain: denies History of Present Illness Tests reviewed: reviewed UA, ED records, consult notes, ANA, ucx, blood cx, labs, PSA I have reviewed the previous health record information and history for this patient from Dr. Issa, [facility]. I have reviewed and verified the staff [...] recommendations of SP tube, stent, definitive care whichis more invasive (cystectomy). He is s/p right [...] a maximum detrusor recording (more content not included)...[facility] HospitalComment on above:Result Comment: Electronically Signed By: Orquidea Issa MD\.br\Date and Time Signed: 01/28/24 16:57EDT\.br\Electronically Co-Signed By: Valentina Sharp.br\Date and Time Co-Signed: 01/28/24 11:14 EDTConsultation Noteon 10-61-8138Maxtlfztzmmj Note [id number]#1.00TIFFEast Liverpool City HospitalBasophils Auto (Bld) [#/Vol]Ordered By: Clarence Miller on 01-22-2024 Basophils (Bld) [#/Vol]0.0 10*3/uL0.0-0.2FChildren's Hospital for Rehabilitation Basophils/100 WBC Auto (Bld)Ordered By: Clarecne Miller on 01-22-2024 Basophils/100 WBC (Bld)0.3 %.[facility] – JacksonCalcium [Mass/volume] in Serum or PlasmaOrdered By: Clarence Miller on 86-69-7207Dxofgyn [Mass/Vol]8.9 mg/dL8.6-10.3FChildren's Hospital for RehabilitationCarbon dioxide, total [Moles/volume] in Serum or PlasmaOrdered By: Clarence Miller on 01-22-2024 CO2 [Moles/Vol]23.3 mmol/L21.0-31.0[facility] – JacksonChloride [Moles/volume] in Serum or PlasmaOrdered By: Clarence Miller on 01-22-2024 Chloride [Moles/Vol]110 mmol/YCpwl22-494ScdspymstHolzer Medical Center – Jackson Consultation Noteon 93-05-0529Sdlnmxillani Note [id number]#1.00TIFACMC Healthcare SystemCreatinine [Mass/volume] in Serum or PlasmaOrdered By: Clarence Miller on 83-08-7344Qbwzuhnwno [Mass/Vol]2.58 mg/dLHigh0.70-1.30[facility] CenterED Note-Physicianon 73-34-7865NS Note-Physician [id number]#1.00TIFParkview Health Bryan Hospital Note-[id number]#1.00[facility] HospitalEosinophils Auto (Bld) [#/Vol]Ordered By: Clarence Miller on 87-53-5223Akqzpwgdjks (Bld) [#/Vol]0.3 10*3/uL0.0-0.45[facility] – JacksonEosinophils/100 WBC Auto (Bld)Ordered By: Clarence Miller on 81-86-6206Uryghxyyacu/100 WBC (Bld)3.3 %.[facility] Erythrocyte distribution width Auto (RBC) [Ratio]Ordered By: Clarence Miller on 80-96-6683Itnyvoxiheu distribution width (RBC) [Ratio]16.1 %High12.0-14.8 [facility] – JacksonFerritin [Mass/volume] in Serum or Plasma Ordered By: Price Crain on 93-56-0069Aazedbji [Mass/Vol]488.7 ng/mLHigh 23.9-336.2FChildren's Hospital for RehabilitationFolate [Mass/volume] in Serum or PlasmaOrdered By: Price Crain on 62-60-4795Ujsqkr [Mass/Vol]15.7 ng/mL>5.9 [facility] – JacksonComment on above:Folate reference range: >5.9 ng/mlThe WHO technical consultation on folate and vitamin t49qhmlwibzsazo has determined that folate concentrations lessthan 4 ng/ml are considered deficient. Glucose Glucometer (BldC) [Mass/Vol]Ordered By: Clarence Miller on 01-22-2024 Glucose [Mass/Vol]142 mg/dLHolzer Medical Center – JacksonComment on above: Random Glucose Reference Range is dependent on time and content of last meal. Glucose of more than 200 mg/dL in a nonstressed, ambulatory subject supports the diagnosis of Diabetes Mellitus.Glucose [Mass/volume] in Serum or PlasmaOrdered By: Clarence Miller on 51-63-4619Kcncbiu [Mass/Vol]51 mg/kLWhu79-247ZclluiupwHolzer Medical Center – JacksonComment on above:ADA recommended reference rangeRandom Glucose Reference Range is dependent on time and content of last meal. Glucose of more than 200 mg/dL in a nonstressed, ambulatory subject supports the diagnosisof Diabetes Mellitus.Hematocrit Auto (Bld) [Volume fraction]Ordered By: Clarence Miller on 73-54-0473Abgvjxhaaj (Bld) [Volume fraction]26.0 %Low38.8-50.0 [facility] – JacksonHemoglobin [Mass/volume] in BloodOrdered By: Clarence Miller on 69-76-5635Lqezajneid (Bld) [Mass/Vol]8.9 g/dLLow13.0-17.0 [facility] – JacksonIron [Mass/volume] in Serum or PlasmaOrdered By: Price Crain on 55-10-1806Hssx [Mass/Vol]59 ug/cA39-624YfuimtpxbHolzer Medical Center – JacksonIron binding capacity [Mass/volume] in Serum or PlasmaOrdered By: Price Crain on 22-24-4766Paku binding capacity [Mass/Vol]164 ug/xJLzk837-346 [facility] – JacksonIron saturation [Mass Fraction] in Serum or PlasmaOrdered By: Price Crain on 99-76-0885Ytag saturation [Mass fraction]36.0 %20-50[facility] – JacksonLab Reportson 35-20-8810Ecq Reports [id number]#1.00TIFACMC Healthcare SystemLeukocytes [#/volume] corrected for nucleated erythrocytes in Blood by Automated counOrdered By: Clarence Miller on 00-51-2712WXK corrected for nucl RBC Auto (Bld) [#/Vol]8.1 10*3/uL4.1-10.5FChildren's Hospital for Rehabilitation Lymphocytes Auto (Bld) [#/Vol]Ordered By: Clarence Miller on 01-22-2024 Lymphocytes (Bld) [#/Vol]1.4 10*3/uL1.00-4.8[facility] Lymphocytes/100 WBC Auto (Bld)Ordered By: Clarence Miller on 01-22-2024 Lymphocytes/100 WBC (Bld)17.0 %.[facility] Medical CenterH Auto (RBC) [Entitic mass]Ordered By: Clarence Miller on 24-38-9286VTR (RBC) [Entitic mass] 36.5 jqBdqg82.5-35.2FChildren's Hospital for RehabilitationMCHC Auto (RBC) [Mass/Vol] Ordered By: Clarence Miller on 33-41-9625NZHZ (RBC) [Mass/Vol]34.3 g/dL32.5-35.6 [facility] – JacksonMCV Auto (RBC) [Entitic vol]Ordered By: Clarence Miller on 18-35-4250PAZ (RBC) [Entitic vol]106.2 fBPuux97.5-101[facility] – JacksonMonocytes Auto (Bld) [#/Vol]Ordered By: Clarence Miller on 69-66-5405Abztdkvrx (Bld) [#/Vol]0.6 10*3/uL0.0-0.8[facility] – JacksonMonocytes/100 WBC Auto (Bld)Ordered By: Clarence Miller on 01-22-2024 Monocytes/100 WBC (Bld)7.2 %.[facility] – JacksonNeutrophils Auto (Bld) [#/Vol]Ordered By: Clarence Miller on 97-10-6285Dnkuhpxpuct (Bld) [#/Vol] 5.8 10*3/uL1.8-7.7FChildren's Hospital for RehabilitationNeutrophils/100 WBC Auto (Bld)Ordered By: Clarence Miller on 11-95-4923Zrslwfwtswu/100 WBC (Bld)72.2 %. [facility] – JacksonNo Panel InformationOrdered By: Clarence Miller on 57-07-3677Jczpbxeuj GFR (CKD-EPI)24.703 mL/MinHolzer Medical Center – JacksonPharmacy Creatinine Clearance (Chem26.98[facility] Nucleated erythrocytes [Presence] in Blood by Automated countOrdered By: Clarence Miller on 13-23-8353Lbgpkhvkq RBC Auto Ql (Bld)0.1 /100{WBC}0-0.5FChildren's Hospital for RehabilitationPlatelet mean volume Auto (Bld) [Entitic vol]Ordered By: Clarence Miller on 93-24-6884Hhsxswsz mean volume (Bld) [Entitic vol]7.8 fL 6.6-10.1FChildren's Hospital for RehabilitationPlatelets Auto (Bld) [#/Vol]Ordered By: Clarence Miller on 03-60-3029Lliqealla (Bld) [#/Vol]199 10*3/zY623-524KswvnvntuHolzer Medical Center – JacksonPotassium [Moles/volume] in Serum or PlasmaOrdered By: Clarence Miller on 36-52-5433Emcxhknvo [Moles/Vol]4.1 mmol/L3.5-5.1FChildren's Hospital for RehabilitationRAD - MISCon 56-75-6101YUK - MISC [id number]#1.00TIFACMC Healthcare SystemRAD - Ultrasound Reporton 70-40-9631SHC - Ultrasound Report [id number]#1.00TIFACMC Healthcare SystemRBC Auto (Bld) [#/Vol]Ordered By: Clarence Miller on 75-52-5793DSS (Bld) [#/Vol]2.45 10*6/uLLow3.90-5.60Toledo Hospitalerum or plasma anion gap determinationOrdered By: Clarence Miller on 09-33-5731Rimgw gap [Moles/Vol]11.8 mmol/L6.0-15.0Toledo Hospitalodium [Moles/volume] in Serum or PlasmaOrdered By: Clarence Miller on 91-85-7080Zgipbt [Moles/Vol]141 mmol/F648-931NavrhhxeaHolzer Medical Center – JacksonTransferrin [Mass/volume] in Serum or PlasmaOrdered By: Price Crain on 01-22-2024 Transferrin [Mass/Vol]117 mg/lKVrm410-855JaigmnuesHolzer Medical Center – JacksonUrea nitrogen [Mass/volume] in Serum or PlasmaOrdered By: Clarence Miller on 04-85-1319Fdhu nitrogen [Mass/Vol]31 mg/dLHigh7-25Hol[facility] Center – JacksonVitamin B12 ser/plasOrdered By: Price Crain on 66-73-3374Ctekzsrcb (Vitamin B12) [Mass/Vol]426 pg/lC222-237SgyiwqfcpHolzer Medical Center – JacksonWBC Auto (Bld) [#/Vol]Ordered By: Clarence Miller on 69-79-1671KXS (Bld) [#/Vol]8.1 10*3/uL4.1-10.5FChildren's Hospital for RehabilitationC Urineon 34-38-2828Dggulxdz identified Cx Nom (U)Microbiology PROCEDURE: Urine Culture [R1] SOURCE: U Random BODY SITE: COLLECTED DATE/TIME: 01/18/2024 15:42 EDT RECEIVED DATE/TIME: 01/18/2024 18:56 EDT START DATE/TIME: 01/18/2024 18:56 EDT FREE TEXT SOURCE: Orzech MEAT CUTTING BLOCK REPAIRER, DERMATOLOGY NURSE-C, Orzech MEAT CUTTING BLOCK REPAIRER, DERMATOLOGY NURSE-C, Makayla X Makayla X FINAL REPORTS Final Report [] Verified Date/Time: 01/20/2024 13:36 EDT <10,000 cfu/ml Mixed skin contaminants including yeast. Mixed cecil (multiple species present) >3 colony types Performing Locations R1: This test was performed at: [facility], [address] [place] [address], [address]- , , LqqnamMxudkoEast Liverpool City HospitalComment on above:Performed By: #### [id number] #### [facility] [address] [place] [address]Lykyyxinrc [Mass/volume] in UrineOrdered By: Price Crain on 32-64-6763Bnwxqhsmxx (U) [Mass/Vol]38.00 mg/dLHolzer Medical Center – Jackson Comment on above:No reference range establishedSodium [Moles/volume] in Urine Ordered By: Price Crain on 94-28-4148Lfdlzd (U) [Moles/Vol]84 mmol/LFChildren's Hospital for RehabilitationComment on above:No reference range establishedActivated partial thromboplastin time (aPTT) in platelet poor plasma by coagulation a Ordered By: Merry Davies on 59-87-3019lFRL Coag (PPP) [Time]24.2 sLow 25.1-36.5FChildren's Hospital for RehabilitationComment on above:A hematocrit value greater than 55% may lead to inaccurate results in coagulation testing. Patients having hematocrit values >55% require a special collection tube for coagulation studies. Please contact the laboratory at [phone] for redraw instructions. Alanine aminotransferase [Enzymatic activity/volume] in Serum or PlasmaOrdered By: Merry Davies on 99-53-7719PPJ [Catalytic activity/Vol]13 U/L7-52Hol[facility] Center – JacksonAlbumin [Mass/volume] in Serum or Plasma by Bromocresol green (BCG) dye binding methoOrdered By: Merry Davies on 85-32-5680Bwabiia BCG dye [Mass/Vol]3.4 g/dLLow3.5-5.7FChildren's Hospital for RehabilitationAlkaline phosphatase [Enzymatic activity/volume] in Serum or PlasmaOrdered By: Merry Davies on 23-73-7894GIJ [Catalytic activity/Vol]83 U/C04-298AwznyuipiHolzer Medical Center – JacksonAspartate aminotransferase [Enzymatic activity/volume] in Serum or PlasmaOrdered By: Merry Davies on 02-54-9354LZI [Catalytic activity/Vol]15 U/X06-62ExzfppehgHolzer Medical Center – JacksonBacteria [Presence] in Urine by AutomatedOrdered By: Merry Davies on 36-09-5025Zamxbwpn Auto Ql (U)4+ [HPF] HighNone SeenHolzer Medical Center – JacksonBacterial blood cultureOrdered By: Merry Davies on 87-31-8099Lziiloew identified Cx Nom (Bld)NO GROWTH 5 DAYS [facility] – JacksonBacteria identified Cx Nom (Bld)NO GROWTH 5 DAYSHolzer Medical Center – JacksonBasophils Auto (Bld) [#/Vol]Ordered By: Merry Davies on 50-22-4175Sjenaybvt (Bld) [#/Vol]0.0 10*3/uL0.0-0.2FChildren's Hospital for RehabilitationBasophils/100 WBC Auto (Bld)Ordered By: Merry Davies on 64-84-2452Gktvgmjjd/100 WBC (Bld)0.3 %.[facility] Bilirubin Test strip Ql (U)Ordered By: Merry Davies on 70-44-1637Zexgfbkzp Ql (U)NegativeNegativeHolzer Medical Center – JacksonBilirubin.total [Mass/volume] in Serum or PlasmaOrdered By: Merry Davies on 01-19-2024 Bilirubin [Mass/Vol]0.5 mg/dL0.3-1.0[facility] – JacksonCalcium [Mass/volume] in Serum or PlasmaOrdered By: Merry Davies on 55-32-3916Szcxypq [Mass/Vol]9.2 mg/dL8.6-10.3FChildren's Hospital for RehabilitationCarbon dioxide, total [Moles/volume] in Serum or PlasmaOrdered By: Merry Davies on 01-19-2024 CO2 [Moles/Vol]19.3 mmol/L21.0-31.0[facility] – JacksonChloride [Moles/volume] in Serum or PlasmaOrdered By: Merry Davies on 01-19-2024 Chloride [Moles/Vol]105 mmol/J73-655VysceveblHolzer Medical Center – JacksonColor Auto (U)Ordered By: Merry Davies on 80-92-8106Fcncp (U)OrangeAbnormalYellow [facility] – JacksonCreatinine [Mass/volume] in Serum or Plasma Ordered By: Merry Davies on 76-55-2285Ximqvfbekd [Mass/Vol]3.07 mg/dL 0.70-1.30Hol[facility] – JacksonEosinophils Auto (Bld) [#/Vol]Ordered By: Merry Davies on 18-63-0739Toiyppokfoy (Bld) [#/Vol]0.2 10*3/uL0.0-0.45 [facility] – JacksonEosinophils/100 WBC Auto (Bld)Ordered By: Merry Davies on 29-42-0442Ewrqkdudlrg/100 WBC (Bld)2.0 %.[facility] – JacksonEpithelial cells.squamous [#/area] in Urine sediment by Automated countOrdered By: Merry Davies on 78-72-6481Xkgaxrwwme cells.squamous Auto (Urine sed) [#/Area]5-9 [HPF]High0-2FChildren's Hospital for RehabilitationErythrocyte distribution width Auto (RBC) [Ratio]Ordered By: Merry Davies on 01-19-2024 Erythrocyte distribution width (RBC) [Ratio]16.5 %12.0-14.8[facility] – JacksonErythrocytes [#/area] in Urine sediment by Automated countOrdered By: Merry Davies on 46-02-2774DFO Auto (Urine sed) [#/Area]20-49 [HPF]High0-4 [facility] – JacksonFecal occult blood detection by immunochemistry Ordered By: Merry Davies on 72-80-6587Fhnoacaltu.gastrointestinal Ql (Stl) [facility] – JacksonGlobulin Calc (S) [Mass/Vol]Ordered By: Merry Davies on 20-24-1934Qwqirorm (S) [Mass/Vol]3.0 g/dLHolzer Medical Center – JacksonGlucose [Mass/volume] in Serum or PlasmaOrdered By: Merry Davies on 96-55-0600Migwsnr [Mass/Vol]133 mg/wC68-802HkcbgaokhHolzer Medical Center – JacksonComment on above:ADA recommended reference rangeRandom Glucose Reference Range is dependent on time and content of last meal. Glucose of more than 200 mg/dL in a nonstressed, ambulatory subject supports the diagnosisof Diabetes Mellitus.Glucose [Mass/volume] in Urine by Test stripOrdered By: Merry Davies on 71-37-4022Eercjpt Test strip (U) [Mass/Vol]Normal mg/dLNormalHolzer Medical Center – JacksonHematocrit Auto (Bld) [Volume fraction]Ordered By: Merry Davies on 75-14-5896Jyoyikqxfv (Bld) [Volume fraction]25.3 %38.8-50.0 [facility] – JacksonHemoglobin Test strip Ql (U)Ordered By: Merry Davies on 03-51-7803Lfamaqpxon Ql (U)3+HighNegativeHolzer Medical Center – JacksonHemoglobin [Mass/volume] in BloodOrdered By: Merry Davies on 94-25-6688Dwihiauiqy (Bld) [Mass/Vol]8.5 g/dL13.0-17.0[facility] – JacksonHyaline casts [#/area] in Urine sediment by Automated countOrdered By: Merry Davies on 76-05-0131Lbsqbfp casts Auto (Urine sed) [#/Area]None [LPF] 0-8[facility] – JacksonINR in Platelet poor plasma by Coagulation assayOrdered By: Merry Davies on 53-66-4477ATX Coag (PPP) [Relative time]1.3 {INR}[facility] – JacksonComment on above:INR Therapeutic Range A) Pre- and Peroperative OAT started two weeks before surgery. NOT HIP SURGERY: 1.5 - 2.5 HIP SURGERY: 2 - 3B) Primary and secondary prevention of venous THROMBOSIS: 2 - 3C) Active venous thrombosis, pulmonary embolismand prevention of recurrent venous thrombosis: 2 - 3D) Prevention of arterial thromboembolismincluding patients with mechanical heart valves: 3 - 4.5Ketones Test strip Ql (U)Ordered By: Merry Davies on 72-87-0435Zvmjcau Ql (U)Negative NegativeHolzer Medical Center – JacksonLactate [Moles/volume] in Serum or PlasmaOrdered By: Merry Davies on 07-58-1170Eratxct [Moles/Vol]0.8 mmol/L 0.5-2.2FChildren's Hospital for RehabilitationLeukocyte clumps [Presence] in Urine by AutomatedOrdered By: Merry Davies on 76-39-3224Nqvjjmlue clumps Auto Ql (U) Many [LPF]HighNone SeenHolzer Medical Center – JacksonLeukocyte esterase [Presence] in Urine by Test stripOrdered By: Merry Davies on 01-19-2024 Leukocyte esterase Test strip Ql (U)4+HighNegativeHolzer Medical Center – JacksonLeukocytes [#/area] in Urine sediment by Automated countOrdered By: Merry Davies on 68-05-6297FET Auto (Urine sed) [#/Area]Innumerable [HPF]High 0-4FChildren's Hospital for RehabilitationLeukocytes [#/volume] corrected for nucleated erythrocytes in Blood by Automated counOrdered By: Merry Davies on 36-18-5616WYU corrected for nucl RBC Auto (Bld) [#/Vol]11.1 10*3/uL4.1-10.5 [facility] – JacksonLymphocytes Auto (Bld) [#/Vol]Ordered By: Merry Davies on 15-31-4983Rsmsfhcpqgl (Bld) [#/Vol]0.8 10*3/uL1.00-4.8 [facility] – JacksonLymphocytes/100 WBC Auto (Bld)Ordered By: Merry Davies on 35-85-7788Ydzebqxzamd/100 WBC (Bld)6.9 %.[facility] – JacksonMCH Auto (RBC) [Entitic mass]Ordered By: Merry Davies on 88-84-3656LHT (RBC) [Entitic mass]36.1 pg27.5-35.2FChildren's Hospital for RehabilitationMCHC Auto (RBC) [Mass/Vol]Ordered By: Merry Davies on 12-06-9276UKJT (RBC) [Mass/Vol]33.6 g/dL32.5-35.6FChildren's Hospital for RehabilitationMCV Auto (RBC) [Entitic vol]Ordered By: Merry Davies on 61-10-9713VPD (RBC) [Entitic vol]107.7 fL83.5-101Hol[facility] – JacksonMonocyte distribution width [Entitic volume] in Blood by AutomatedOrdered By: Merry Davies on 01-19-2024 Monocyte distribution width Auto (Bld) [Entitic vol]23.65 %High0.00-20.00 [facility] – JacksonComment on above:For adults in ED, MDW > 20.0 may be associated with a higher risk of sepsis during the first 12 hrs of hospital admissionMonocytes Auto (Bld) [#/Vol]Ordered By: Merry Davies on 87-30-3860Lpfxhnfkz (Bld) [#/Vol]0.8 10*3/uL0.0-0.8[facility] – JacksonMonocytes/100 WBC Auto (Bld)Ordered By: Merry Davies on 01-19-2024 Monocytes/100 WBC (Bld)7.0 %.[facility] – JacksonNatriuretic peptide B [Mass/Vol]Ordered By: Merry Davies on 10-73-9815Ypfinccwayx peptide B (Bld) [Mass/Vol]125.0 pg/mLHigh5-100[facility] Neutrophils Auto (Bld) [#/Vol]Ordered By: Merry Davies on 01-19-2024 Neutrophils (Bld) [#/Vol]9.3 10*3/uL1.8-7.7FChildren's Hospital for Rehabilitation Neutrophils/100 WBC Auto (Bld)Ordered By: Merry Davies on 01-19-2024 Neutrophils/100 WBC (Bld)83.8 %.[facility] Center – JacksonNitrite Test strip Ql (U)Ordered By: Merry Davies on 09-09-8464Vzdytlu Ql (U)Negative NegativeHolzer Medical Center – JacksonNo Panel InformationOrdered By: Merry Davies on 60-77-2100Afamcrcug GFR (CKD-EPI)20.051 mL/MinHolzer Medical Center – JacksonPharmacy Creatinine Clearance (Chem22.52[facility] – JacksonNucleated erythrocytes [Presence] in Blood by Automated countOrdered By: Merry Davies on 79-11-9866Sosklxjyt RBC Auto Ql (Bld)0.0 /100{WBC}0-0.5FChildren's Hospital for RehabilitationPlatelet mean volume Auto (Bld) [Entitic vol]Ordered By: Merry Davies on 14-16-9438Omawbxaj mean volume (Bld) [Entitic vol]8.0 fL6.6-10.1FChildren's Hospital for RehabilitationPlatelets Auto (Bld) [#/Vol]Ordered By: Merry Davies on 39-11-9910Ejriaqymg (Bld) [#/Vol]181 10*3/lX085-958AavpppiiwHolzer Medical Center – JacksonPotassium [Moles/volume] in Serum or PlasmaOrdered By: Merry Davies on 25-36-2081Uldabshli [Moles/Vol]4.4 mmol/L3.5-5.1FChildren's Hospital for RehabilitationProtein Test strip (U) [Mass/Vol] Ordered By: Merry Davies on 59-04-2548Foculcc (U) [Mass/Vol]200 mg/dLHigh NegativeHolzer Medical Center – JacksonProtein [Mass/volume] in Serum or PlasmaOrdered By: Merry Davies on 99-09-4689Crznpvk [Mass/Vol]6.4 g/dL6.4-8.9 [facility] – JacksonProthrombin time (PT)Ordered By: Merry Davies on 88-09-1207LR Coag (PPP) [Time]15.2 sHigh9.0-12.9[facility] Center – JacksonComment on above:A hematocrit value greater than 55% may lead to inaccurate results in coagulation testing. Patientshaving hematocrit values >55% require a special collection tube for coagulation studies. Please contact the laboratory at [phone] for redraw instructions.RBC Auto (Bld) [#/Vol]Ordered By: Merry Davies on 72-97-7816TKI (Bld) [#/Vol]2.35 10*6/uL3.90-5.60 [facility] Hospitalerum or plasma albumin/globulin mass ratio Ordered By: Merry Davies on 19-95-4699Ycuimon/Globulin [Mass ratio]1.1 {ratio}[facility] Hospitalerum or plasma anion gap determination Ordered By: Merry Davies on 23-75-4251Lnxjh gap [Moles/Vol]13.1 mmol/L 6.0-15.0[facility] Hospitalodium [Moles/volume] in Serum or PlasmaOrdered By: Merry Davies on 16-17-8886Yxetyk [Moles/Vol]133 mmol/L 136-145T[facility]edo Hospitalpecific gravity Test strip (U) [Rel density]Ordered By: Merry Davies on 29-99-4167Jemlunid gravity (U) [Rel density]1.0131.001-1.030[facility] – JacksonThyrotropin [Units/volume] in Serum or PlasmaOrdered By: Merry Davies on 87-94-2439IST Qn 0.17 m[IU]/LLow0.45-5.33[facility] – JacksonThyroxine (T4) free [Mass/volume] in Serum or PlasmaOrdered By: Merry Davies on 77-98-6158Nwrq T4 [Mass/Vol]0.89 ng/dL0.61-1.12[facility] – JacksonTroponin I.cardiac [Mass/volume] in Serum or Plasma by Detection limit <= 0.01 ng/Ordered By: Merry Davies on 60-78-7813Kxccnpxu I.cardiac DL <= 0.01 ng/mL [Mass/Vol] 10.8 pg/mL0.0-20.0[facility] – JacksonUrea nitrogen [Mass/volume] in Serum or PlasmaOrdered By: Merry Davies on 58-05-8639Ddfb nitrogen [Mass/Vol]47 mg/dL7-25[facility] – JacksonUrine appearanceOrdered By: Merry Davies on 24-43-7712Dnvkaeajnf (U)TurbidAbnormalClearFChildren's Hospital for RehabilitationUrine culture routineOrdered By: Merry aDvies on 74-97-7182Nfwjdrlq identified Cx Nom (U)Klebsiella oxytocaAbnormMedina HospitalUrobilinogen Test strip (U) [Mass/Vol]Ordered By: Merry Davies on 46-53-8299Rkcagcitfsrf (U) [Mass/Vol]Normal mg/dLNoOhioHealth Doctors HospitalWBC Auto (Bld) [#/Vol]Ordered By: Merry Davies on 51-71-9349YNL (Bld) [#/Vol]11.1 10*3/uL4.1-10.5FChildren's Hospital for RehabilitationpH Test strip (U)Ordered By: Merry Davies on 80-99-7649wG (U) 6.0 [pH]5.0-9.0[facility] – JacksonAmbulatory Visit Summaryon 43-15-6608Vrplwvyfkx Visit Summary PATSY MILLS :1945 Visit Date:01/18/2024 Ambulatory Visit Instructions Your Diagnosis Recurrent UTI Your Care Team Attending Physician - Diego RICKS, Orquidea Taylor Primary Care Physician - HELEN OCHOA MD This Is Your Medications List acyclovir (Zovirax 400 mg Tab) aspirin (aspirin 81 mg Chew Tab) atorvastatin (atorvastatin 20 mg Tab) bifidobacterium-lactobacillus (Probiotic + Colostrum) cholecalciferol (Vitamin D3 2000 [...] stent (06/10/2023), ESWL of kidney (06/10/2023), Cystostomy andinsertion of suprapubic tube (03/05/2023), Cystoscopic insertion of ureteric stent (12/10/2022), TURP - Transurethral resection of prostate (08/27/2022), Transurethral insertion of prostatic urethrallift implant (05/05/2022), Cystoscopic removal of ureteric stent (08/20/2012), Cystoscopic ureteroneocystostomy with insertion 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 What to do next Scheduled Follow-Up Appointments Jan. 2023 10:15 AM EDT With: Diego RICKS, Orquidea Taylor Where: [facility] Urineon 81-59-8122Ztnwjaan identified Cx Nom (U) Microbiology PROCEDURE: Urine Culture [R1] SOURCE: U Suprapubic BODY SITE: COLLECTED DATE/TIME: 01/08/2024 11:37 EDT RECEIVED DATE/TIME: 01/08/2024 17:42 EDT START DATE/TIME: 01/08/2024 17:42 EDT FREE TEXT SOURCE: EFREN RICKS, Santi SCHWARTZ MD, Santi Briceño FINAL REPORTS Final Report [] Verified Date/Time: [...] fluids and serious wound infections. SUSCEPTIBILITY RESULTS LEGEND: S=Susceptible, N/R=Not Reported, Blank=Data not available, [...] Locations R1: This test was performed at: [facility], [address] [place] [address], [address]- , , FdsldsOyscqxEast Liverpool City HospitalComment on above:Performed By: #### [id number] #### [facility] [address] [place] [address]Qipragbg identified Cx Nom (U)Microbiology PROCEDURE: Urine Culture [R1] SOURCE: U Suprapubic BODY SITE: COLLECTED DATE/TIME: 01/08/2024 11:37 EDT RECEIVED DATE/TIME: 01/08/2024 17:42 EDT START DATE/TIME: 01/08/2024 17:42 EDT FREE TEXT SOURCE: EFREN RICKS, Santi SCHWARTZ MD, Santi Briceño FINAL REPORTS Final Report [] Verified Date/Time: [...] fluids and serious wound infections. SUSCEPTIBILITY RESULTS LEGEND: S=Susceptible, N/R=Not Reported, Blank=Data not available, [...] Locations R1: This test was performed at: [facility], [address] [place] [address], [facility] , , IprlgvXnelmvEast Liverpool City HospitalComment on above:Performed By: #### [id number] #### [facility] [address] [place] [id number] Urineon 89-99-6402Thdhzylp identified Cx Nom (U)Microbiology PROCEDURE: Urine Culture [R1] SOURCE: U Cath BODY SITE: COLLECTED DATE/TIME: 12/09/2023 11:13 EDT RECEIVED DATE/TIME: 12/09/2023 17:47 EDT START DATE/TIME: 12/09/2023 17:47 EDT FREE TEXT SOURCE: Nancie Boyle Alysha J FINAL REPORTS Final Report [] Verified Date/Time: 12/11/2023 12:48 EDT 75,000 cfu/ml Stenotrophomonas maltophilia >100,000 cfu/ml Streptococcus agalactiae (Group B) Presumptive isolated. Penicillin is the drug of choice for Beta Hemolytic Streptococci Isolates. Routine susceptibility testing on Beta Hemolytic Streptococcus isolates is no longer performed. Susceptibilities will continue to be performed on Isolates from sterile body fluids and serious wound infections. SUSCEPTIBILITY RESULTS LEGEND: S=Susceptible, N/R=Not Reported, Blank=Data not available, or drug not advisable or tested, I=Intermediate, ESBL=Extended spectrum beta-lactamase, R=Resistant, TFG=Thymidine-dependent strain, RADHA=Beta-lactamase positive, DEEPA=mcg/m;(mg/L), S*=Predicted susceptible interp, R*=Predicted resistant interp Stemal Antibiotic DEEPA Dilutn DEEPA Interp Levofloxacin <=2 S Trimethoprim/ <=2/38 S Sulfa Performing Locations R1: This test was performed at: [facility], [address] [place] [address], [facility]- , , GasdusJqhtkdEast Liverpool City HospitalComment on above:Performed By: #### [id number] #### [facility] [address] [place], [place] [address]Alanine aminotransferase [Enzymatic activity/volume] in Serum or PlasmaOrdered By: Helen Ochoa on 53-95-2556ZKC [Catalytic activity/Vol]15 U/L7-52[facility] – JacksonAlbumin [Mass/volume] in Serum or Plasma by Bromocresol green (BCG) dye binding methoOrdered By: Helen Ochoa on 41-34-3654Omtfozv BCG dye [Mass/Vol]4.1 g/dL3.5-5.7FChildren's Hospital for RehabilitationAlkaline phosphatase [Enzymatic activity/volume] in Serum or PlasmaOrdered By: Helen Ochoa on 31-39-0999OOA [Catalytic activity/Vol]85 U/L34-104 [facility] – JacksonAspartate aminotransferase [Enzymatic activity/volume] in Serum or PlasmaOrdered By: Helen Ochoa on 53-34-2049WVE [Catalytic activity/Vol]17 U/Z20-74ZzhfowcczHolzer Medical Center – JacksonBasophils Auto (Bld) [#/Vol]Ordered By: Helen Ochoa on 29-97-5702Erbenqcll (Bld) [#/Vol]0.0 10*3/uL0.0-0.2FChildren's Hospital for RehabilitationBasophils/100 WBC Auto (Bld)Ordered By: Helen Ochoa on 05-53-1986Bnncgoxqs/100 WBC (Bld)0.3 %. [facility] – JacksonBilirubin.total [Mass/volume] in Serum or PlasmaOrdered By: Helen Ochoa on 52-60-9996Aqwojhxqq [Mass/Vol]0.3 mg/dL 0.3-1.0[facility] – JacksonCalcium [Mass/volume] in Serum or Plasma Ordered By: Helen Ochoa on 44-53-2894Eeaavhc [Mass/Vol]9.3 mg/dL8.6-10.3 [facility] – JacksonCarbon dioxide, total [Moles/volume] in Serum or PlasmaOrdered By: Helen Ochoa on 63-96-7319OX6 [Moles/Vol]25.5 mmol/L 21.0-31.0[facility] – JacksonChloride [Moles/volume] in Serum or PlasmaOrdered By: Helen Ochoa on 67-08-9441Ooxgkljg [Moles/Vol]109 mmol/L 98-107[facility] – JacksonCholesterol [Mass/volume] in Serum or PlasmaOrdered By: Helen Ochoa on 95-13-3082Bjqxcvmmpvm [Mass/Vol]128 mg/dL 140-200Hol[facility] Center – JacksonComment on above:Chol less than 200 mg/dl low riskChol 201-239 mg/dl borderline riskChol 240 mg/dl and greater high riskCholesterol in LDL Calc [Mass/Vol]Ordered By: Helen Ochoa on 11-04-2023 Cholesterol in LDL [Mass/Vol]71 mg/dL0-100[facility] Comment on above:LDL ATP III CLASSIFICATIONLDL less than 100 mg/dL OptimalLDL 100-129 mg/dL Near or above kjbhrksUBL420-744 mg/dL Borderline highLDL 160-189 mg/dL HighLDL greater than 189 mg/dL Very highCholesterol in VLDL Calc [Mass/Vol]Ordered By: Helen Ochoa on 12-79-5767Emxyoqrnrlk in VLDL [Mass/Vol] 19 mg/dLHolzer Medical Center – JacksonCreatinine [Mass/volume] in Serum or PlasmaOrdered By: Helen Ochoa on 85-21-3556Cedhfoiool [Mass/Vol]1.87 mg/dL 0.70-1.30[facility] – JacksonCreatinine [Mass/volume] in Urine Ordered By: Helen Ochoa on 88-40-2482Edipcqdouq (U) [Mass/Vol]116.0 mg/dL 14.0-26.0[facility] – JacksonEosinophils Auto (Bld) [#/Vol]Ordered By: Helen Ochoa on 59-04-7384Yqfuxgusxib (Bld) [#/Vol]0.3 10*3/uL0.0-0.45 [facility] – JacksonEosinophils/100 WBC Auto (Bld)Ordered By: Helen Ochoa on 16-93-1653Xtniwssvyhw/100 WBC (Bld)3.4 %.[facility] – JacksonErythrocyte distribution width Auto (RBC) [Ratio]Ordered By: Helen Ochoa on 56-55-6100Wktukowfdon distribution width (RBC) [Ratio]16.5 % 12.0-14.8[facility] – JacksonGlobulin Calc (S) [Mass/Vol]Ordered By: Helen Ochoa 15-19-6803Aqzwrmeo (S) [Mass/Vol]2.5 g/dLHolzer Medical Center – JacksonGlucose [Mass/volume] in Serum or PlasmaOrdered By: Helen Ochoa on 74-56-0467Xqbolkr [Mass/Vol]105 mg/bS86-659YpyhbggsvHolzer Medical Center – JacksonComment on above:ADA recommended reference rangeRandom Glucose Reference Range is dependent on time and content of last meal. Glucose of more than 200 mg/dL in a nonstressed, ambulatory subject supports the diagnosisof Diabetes Mellitus.Hematocrit Auto (Bld) [Volume fraction]Ordered By: Helen Ochoa on 20-23-3752Nmydskyaon (Bld) [Volume fraction]31.7 %38.8-50.0[facility] – JacksonHemoglobin [Mass/volume] in BloodOrdered By: Helen Ochoa on 48-23-6676Lexpffcmab (Bld) [Mass/Vol]10.3 g/dL13.0-17.0[facility] – JacksonLeukocytes [#/volume] corrected for nucleated erythrocytes in Blood by Automated counOrdered By: Helen Ochoa on 11-04-2023 WBC corrected for nucl RBC Auto (Bld) [#/Vol]7.6 10*3/uL4.1-10.5FChildren's Hospital for RehabilitationLymphocytes Auto (Bld) [#/Vol]Ordered By: Helen Ochoa on 85-92-3472Jgllcaiteal (Bld) [#/Vol]1.0 10*3/uL1.00-4.8[facility] – JacksonLymphocytes/100 WBC Auto (Bld)Ordered By: Helen Ochoa on 67-04-5082Erokdssrepv/100 WBC (Bld)12.9 %.[facility] – JacksonMCH Auto (RBC) [Entitic mass]Ordered By: Helen Ochoa on 18-20-2355ARI (RBC) [Entitic mass]35.2 pg27.5-35.2FChildren's [facility] RehabilitationMCHC Auto (RBC) [Mass/Vol]Ordered By: Helen Ochoa on 83-26-8814PMGJ (RBC) [Mass/Vol]32.6 g/dL 32.5-35.6FChildren's Hospital for RehabilitationMCV Auto (RBC) [Entitic vol]Ordered By: Helen Ochoa on 42-35-3631EJI (RBC) [Entitic vol]107.9 fL83.5-101[facility] – JacksonMicroalbumin [Mass/volume] in UrineOrdered By: Helen Ochoa on 49-86-8029Olspchc DL <= 20 mg/L (U) [Mass/Vol]mg/dL0.0-1.8[facility] – JacksonMonocytes Auto (Bld) [#/Vol]Ordered By: Helen Ochoa on 38-15-1312Zbdalvnek (Bld) [#/Vol]0.5 10*3/uL0.0-0.8[facility] – JacksonMonocytes/100 WBC Auto (Bld)Ordered By: Helen Ohcoa on 11-04-2023 Monocytes/100 WBC (Bld)6.6 %.[facility] – JacksonNeutrophils Auto (Bld) [#/Vol]Ordered By: Helen Ochoa on 19-20-3228Unszisiijtr (Bld) [#/Vol] 5.8 10*3/uL1.8-7.7FChildren's Hospital for RehabilitationNeutrophils/100 WBC Auto (Bld)Ordered By: Helen Ochoa on 12-64-2477Qajtugeljvo/100 WBC (Bld)76.8 %. [facility] – JacksonNo Panel InformationOrdered By: Helen Ochoa on 72-47-9835Lnxuikknc GFR (CKD-EPI)36.349 mL/MinHolzer Medical Center – JacksonPharmacy Creatinine Clearance (ChemN/AFChildren's Hospital for Rehabilitation Nucleated erythrocytes [Presence] in Blood by Automated countOrdered By: Helen Ochoa on 65-53-8812Jelrnfrlk RBC Auto Ql (Bld)0.1 /100{WBC}0-0.5FChildren's Hospital for RehabilitationPlatelet mean volume Auto (Bld) [Entitic vol]Ordered By: Helen Ochoa on 89-39-2275Bgverdsa mean volume (Bld) [Entitic vol]7.8 fL 6.6-10.1FChildren's Hospital for RehabilitationPlatelets Auto (Bld) [#/Vol]Ordered By: Helen Ochoa on 14-64-9636Ozlwehhki (Bld) [#/Vol]189 10*3/cK448-512HlymvvrdrHolzer Medical Center – JacksonPotassium [Moles/volume] in Serum or PlasmaOrdered By: Helen Ochoa on 41-38-7320Rihyvrnps [Moles/Vol]4.7 mmol/L3.5-5.1FChildren's Hospital for RehabilitationProtein [Mass/volume] in Serum or PlasmaOrdered By: Helen Ochoa on 36-86-2298Awjchou [Mass/Vol]6.6 g/dL6.4-8.9[facility] – JacksonRBC Auto (Bld) [#/Vol]Ordered By: Helen Ochoa on 43-68-8278TOC (Bld) [#/Vol]2.94 10*6/uL3.90-5.60[facility] Hospitalerum or plasma albumin/globulin mass ratioOrdered By: Helen Ochoa on 11-04-2023 Albumin/Globulin [Mass ratio]1.6 {ratio}[facility] Hospitalerum or plasma anion gap determinationOrdered By: Helen Ochoa on 32-78-4075Sujqi gap [Moles/Vol]9.2 mmol/L6.0-15.0[facility] Hospitalerum or plasma high density lipoprotein (HDL) cholesterol measurementOrdered By: Helen Ochoa on 10-03-1969Dgoojdyqvhx in HDL [Mass/Vol]38 mg/hC06-50JzyukeccfHolzer Medical Center – JacksonComment on above:HDL CHOL ATP-III CLASSIFICATION Cardiovascular RiskHDL > or equal to 60 mg/dL LOWHDL < 40 mg/dL HIGHSerum or plasma total cholesterol/high density lipoprotein (HDL) cholesterol mass rat Ordered By: Helen Ochoa on 57-75-8305Mipgtfhwbmx.total/Cholesterol in HDL [Mass ratio]3.4 {ratio}<5.0[facility]edo Hospitalodium [Moles/volume] in Serum or PlasmaOrdered By: Helen Ochoa on 08-66-2007Fxxkjr [Moles/Vol]139 mmol/X582-362ZvujwwbtjHolzer Medical Center – JacksonThyrotropin [Units/volume] in Serum or PlasmaOrdered By: Helen Ochoa on 48-74-0677LDA Qn 0.54 m[IU]/L0.45-5.33[facility] – JacksonThyroxine (T4) free [Mass/volume] in Serum or PlasmaOrdered By: Helen Ochoa on 33-34-1609Blvh T4 [Mass/Vol]0.85 ng/dL0.61-1.12[facility] – JacksonTriglyceride [Mass/volume] in Serum or PlasmaOrdered By: Helen Ochoa on 11-04-2023 Triglyceride [Mass/Vol]97 mg/dL0-149Hol[facility] – JacksonComment on above:TRIG ATP III CLASSIFICATIONTRIG less than 150 mg/dL NormalTRIG 150-199 mg/dL Borderline highTRIG 200-500 mg/dL High TRIG greater than 500 mg/dL Very highStandard traceable to the Center for Disease Conrtrol and Prevention (CDC) test method.Urea nitrogen [Mass/volume] in Serum or PlasmaOrdered By: Helen Ochoa on 87-06-6759Dhzw nitrogen [Mass/Vol]30 mg/dL7-25[facility] – JacksonUrine microalbumin/creatinine mass ratioOrdered By: Helen Ochoa on 00-46-9983Qzaqygg/Creatinine DL <= 20 mg/L (U) [Mass ratio]TNPHolzer Medical Center – JacksonComment on above:Test not performedVitamin D+Metabolites [Mass/volume] in Serum or PlasmaOrdered By: Helen Ochoa on 07-83-7785Mbcoqbe D+Metabolites [Mass/Vol]61.8 ng/pE20-373WgfxiyqutHolzer Medical Center – JacksonComment on above:VITAMIN D STATUS 25(OH)VITAMIN D RANGE (ng/mL) Deficient <20 Insufficient 20 to <85Sptfvdlmyp47 to 100Reference: Dieudonne MF,Brnedon GUERRA, Estrella CARTER, et al. Evaluation,treatment, and prevention of vitamin D deficiency; an Endocrine Society clinical practice guideline. JCEM. 2010; 96 (7):1911-30.WBC Auto (Bld) [#/Vol]Ordered By: Helen Ochoa on 33-31-7427RUB (Bld) [#/Vol]7.6 10*3/uL4.1-10.5FChildren's Hospital for RehabilitationInterpretation of 24 hour urine protein electrophoresis pattern (narrative result)Ordered By: Price Crain on 41-82-7970Wcrewpz Fractions Elph Dickson (24H U) [Interp]N/A [facility] – JacksonKaa light chains.free [Mass/volume] in Urine Ordered By: Price Crain on 38-85-0990Ubkkvynhaunsjv light chains.kappa.free (U) [Mass/Vol]98.10 mg/L1.17-86.46[facility] – JacksonKaa light chains.free/Lambda light chains.free [Mass Ratio] in UrineOrdered By: Price Crain on 38-64-8997Msyvhpqielttkd light chains.kappa.free/Immunoglobulin light chains.lambda.free (U) [Mass ratio]4.631.83-14.26[facility] – JacksonComment on above:Performed at: [facility] - [facility] [id number] Director: Aliya Curtis MD, Phone: [phone] Lambda light chains.free [Mass/volume] in UrineOrdered By: Price Crain on 44-56-0765Bbemeuhtyuzksd light chains.lambda.free (U) [Mass/Vol]21.19 mg/L 0.27-15.21[facility] – JacksonNo Panel InformationOrdered By: Price Crain on 31-24-2828Wfbld Albumin 24 Hours44.8 %.[facility] – JacksonUrine Yscie-3-Ieesdavj1.0 %.[facility] – JacksonUrine Caitp-9-Tocogqbeo82.2 %.[facility] – JacksonUrine Beta Bzxwuorx08.3 %.[facility] – JacksonUrine Gamma Rmepmzjm83.7 %.[facility] – JacksonUrine IEP M-Anselmo % 24 HrComment: %Not ObservedHolzer Medical Center – JacksonComment on above:UPE shows an asymmetrical gamma.Urine Random Prot Electrophor NoteSee comment.[facility] – JacksonComment on above:Protein electrophoresis scan will follow via computer,mail, or camera supervisor delivery.Performed at: - [facility] [id number] Director: Melchor Agrawal PhD, Phone: [phone] [Mass/time] in 24 hour UrineOrdered By: Price Crain on 76-19-5273Cxtdjtj (24H U) [Mass/Time]1760 mg/24 jx22-385XgsyxnckrHolzer Medical Center – JacksonProtein [Mass/volume] in UrineOrdered By: Price Crain on 25-24-4059Ydcueei (U) [Mass/Vol]117.3 mg/dLNot Estab.[facility] Protein.monoclonal [Mass/time] in 24 hour Urine by ElectrophoresisOrdered By: Price Crain on 33-54-1090Kroalac.monoclonal Elph (24H U) [Mass/Time]N/A [facility] – JacksonAlanine aminotransferase [Enzymatic activity/volume] in Serum or PlasmaOrdered By: Price Crain on 44-16-9753QYG [Catalytic activity/Vol]15 U/L7-52[facility] – JacksonAlbumin [Mass/volume] in Serum or Plasma by Bromocresol green (BCG) dye binding metho Ordered By: Price Crain on 13-45-8370Wkasokn BCG dye [Mass/Vol]3.9 g/dL3.5-5.7 [facility] – JacksonAlkaline phosphatase [Enzymatic activity/volume] in Serum or PlasmaOrdered By: Price Crain on 24-70-3739RHR [Catalytic activity/Vol]85 U/S94-533QmwfxugptHolzer Medical Center – JacksonAspartate aminotransferase [Enzymatic activity/volume] in Serum or PlasmaOrdered By: Price Crain on 09-63-2685OBA [Catalytic activity/Vol]16 U/R41-93LwzzgwwdrHolzer Medical Center – JacksonBilirubin.total [Mass/volume] in Serum or PlasmaOrdered By: Price Crain on 06-03-7085Nvezwckqw [Mass/Vol]0.4 mg/dL0.3-1.0[facility] – JacksonCalcium [Mass/volume] in Serum or PlasmaOrdered By: Price Crain 54-24-4347Truykur [Mass/Vol]9.0 mg/dL8.6-10.3FChildren's Hospital for RehabilitationCarbon dioxide, total [Moles/volume] in Serum or PlasmaOrdered By: Price Crain 45-23-5413OF5 [Moles/Vol]25.0 mmol/L21.0-31.0[facility] – JacksonChloride [Moles/volume] in Serum or PlasmaOrdered By: Price Crain 28-70-7699Ejcvfqxj [Moles/Vol]109 mmol/N10-443CevpauhwsHolzer Medical Center – JacksonCreatinine [Mass/volume] in Serum or PlasmaOrdered By: Price Crain 09-44-1922Rzekpbtoar [Mass/Vol]1.91 mg/dL0.70-1.30[facility] – JacksonErythrocyte distribution width Auto (RBC) [Ratio]Ordered By: Price Crain on 01-90-0834Hdhdnsgzaic distribution width (RBC) [Ratio]16.5 %12.0-14.8 [facility] – JacksonGlobulin Calc (S) [Mass/Vol]Ordered By: Price Crain on 58-67-1799Kvcbnajw (S) [Mass/Vol]2.4 g/dLHolzer Medical Center – JacksonGlucose [Mass/volume] in Serum or PlasmaOrdered By: Price Crain on 60-42-0193Equllwv [Mass/Vol]70 mg/qX49-723EurnhsfwaHolzer Medical Center – Jackson Comment on above:ADA recommended reference rangeRandom Glucose Reference Range is dependent on time and content of last meal. Glucose of more than 200 mg/dL in a nonstressed, ambulatory subject supports the diagnosisof Diabetes Mellitus. Hematocrit Auto (Bld) [Volume fraction]Ordered By: Price Crain on 10-22-2023 Hematocrit (Bld) [Volume fraction]29.4 %38.8-50.0[facility] – JacksonHemoglobin [Mass/volume] in BloodOrdered By: Price Crain on 10-22-2023 Hemoglobin (Bld) [Mass/Vol]9.8 g/dL13.0-17.0[facility] Immunofixation for UrineOrdered By: Price Crain on 48-00-1956Hcjzdbjxryamyq Immunofixation (U) [Interp]See comment.[facility] – JacksonComment on above:Immunofixation shows IgG monoclonal protein with kappalight chain specificity.Performed at: [address] [id number] Director: Melchor Agrawal PhD, Phone: [phone] [#/volume] corrected for nucleated erythrocytes in Blood by Automated coun Ordered By: Price Crain on 16-49-3788XKY corrected for nucl RBC Auto (Bld) [#/Vol]7.4 10*3/uL4.1-10.5FProvidence Hospital Auto (RBC) [Entitic mass]Ordered By: Price Crain on 14-31-9302PCO (RBC) [Entitic mass]35.9 pg27.5-35.2FSelect Medical Cleveland Clinic Rehabilitation Hospital, AvonHC Auto (RBC) [Mass/Vol]Ordered By: Price Crain on 50-41-4139VYDA (RBC) [Mass/Vol]33.4 g/dL32.5-35.6FChildren's Hospital for RehabilitationMCV Auto (RBC) [Entitic vol]Ordered By: Price Crain on 67-41-9079YAY (RBC) [Entitic vol]107.6 fL83.5-101[facility] – JacksonMagnesium [Mass/volume] in Serum or PlasmaOrdered By: Price Crain on 38-22-9042Xhtrsleyj [Mass/Vol]1.9 mg/dL1.9-2.7FChildren's Hospital for Rehabilitation Magnesium [Mass/Vol]Magnesium [Mass/volume] in Serum or Plasma1.9-2.7FChildren's Hospital for RehabilitationNo Panel InformationOrdered By: Price Crain on 97-69-3612Jezlzymbh GFR (CKD-EPI)35.437 mL/MinHolzer Medical Center – Jackson Pharmacy Creatinine Clearance (Chem37.47[facility] Parathyrin.intact [Mass/volume] in Serum or PlasmaOrdered By: Price Crain on 56-90-4920Ilotigxdof.intact [Mass/Vol]44.7 pg/xD78-66YyysnjodtHolzer Medical Center – JacksonParathyrin.intact [Mass/Vol]Parathyrin.intact [Mass/volume] in Serum or Cxogej05-52QmsojwdzjHolzer Medical Center – JacksonPhosphate [Mass/volume] in Serum or PlasmaOrdered By: Price Crain on 33-22-4983Xyksxatgz [Mass/Vol]3.1 mg/dL2.5-4.5 [facility] – JacksonPhosphate [Mass/Vol]Phosphate [Mass/volume] in Serum or Plasma2.5-4.5FChildren's Hospital for RehabilitationPlatelet mean volume Auto (Bld) [Entitic vol]Ordered By: Price Crain on 27-11-0972Ntirgqzh mean volume (Bld) [Entitic vol]7.8 fL6.6-10.1FChildren's Hospital for RehabilitationPlatelets Auto (Bld) [#/Vol]Ordered By: Price Crain on 89-76-0655Tdzwsqgqh (Bld) [#/Vol]172 10*3/iO729-463VninawoehHolzer Medical Center – JacksonPotassium [Moles/volume] in Serum or PlasmaOrdered By: Price Crain on 48-73-6485Mvqqpdcij [Moles/Vol]4.4 mmol/L 3.5-5.1FChildren's Hospital for RehabilitationProtein [Mass/volume] in Serum or Plasma Ordered By: Price Crain on 56-88-6798Mbraaao [Mass/Vol]6.3 g/dL6.4-8.9[facility] – JacksonRBC Auto (Bld) [#/Vol]Ordered By: Price Crain on 25-06-6220AKP (Bld) [#/Vol]2.73 10*6/uL3.90-5.60[facility] Hospitalerum or plasma albumin/globulin mass ratioOrdered By: Price Crain on 01-45-5930Hsxhjvx/Globulin [Mass ratio]1.6 {ratio}[facility] Hospitalerum or plasma anion gap determinationOrdered By: Price Crain on 27-02-8114Xpecg gap [Moles/Vol]9.4 mmol/L6.0-15.0[facility] Hospitalodium [Moles/volume] in Serum or PlasmaOrdered By: Price Crain on 45-74-5970Undxzj [Moles/Vol]139 mmol/X321-753MwbnqanucHolzer Medical Center – Jackson Urate [Mass/volume] in Serum or PlasmaOrdered By: Price Crain on 10-22-2023 Urate [Mass/Vol]4.7 mg/dL4.4-7.6FChildren's Hospital for RehabilitationUrate [Mass/Vol]Urate [Mass/volume] in Serum or Plasma4.4-7.6FChildren's Hospital for RehabilitationUrea nitrogen [Mass/volume] in Serum or PlasmaOrdered By: Price Crain on 78-96-4171Yjbb nitrogen [Mass/Vol]29 mg/dL7-25[facility] – JacksonVitamin D+Metabolites [Mass/volume] in Serum or PlasmaOrdered By: Price Crain on 26-52-9266Qbtwhqg D+Metabolites [Mass/Vol]61.4 ng/uE56-714 [facility] – JacksonComment on above:VITAMIN D STATUS 25(OH)VITAMIN D RANGE (ng/mL) Deficient <20 Insufficient 20 to <31Iuscoolxfw67 to 100Reference: Brendon Daniel, Estrella CARTER, et al. Evaluation,treatment, and prevention of vitamin D deficiency; an Endocrine Society clinical practice guideline. JCEM. 2010; 96(7):1911-.Vitamin D+Metabolites [Mass/Vol]Vitamin D+Metabolites [Mass/volume] in Serum or Plasma 30-100[facility] – JacksonComment on above:VITAMIN D STATUS 25(OH)VITAMIN D RANGE (ng/mL) Deficient <20 Insufficient 20 to <52Bnegugnhfy44 to 100Reference: Brendon Daniel, Estrella CARTER, et al. Evaluation,treatment, and prevention of vitamin D deficiency; an Endocrine Society clinical practice guideline. JCEM. 2010; 96(7):1911-.Albumin [Mass/volume] in Serum or PlasmaOrdered By: Brook Huddleston on 00-88-5528Prpbpsz [Mass/Vol]3.6 g/dL2.9-4.4FChildren's Hospital for RehabilitationAlbumin/Protein.total in 24 hour Urine by ElectrophoresisOrdered By: Brook Huddleston on 72-22-2068Jgailnq Elph (24H U) [Mass fraction]47.1 %.[facility] – JacksonBasophils Auto (Bld) [#/Vol]Ordered By: Brook Huddleston on 69-20-1805Lgwjntbzg (Bld) [#/Vol]0.0 10*3/uL0.0-0.2FChildren's Hospital for RehabilitationBasophils/100 WBC Auto (Bld) Ordered By: Brook Huddleston on 91-24-3754Csddxjchu/100 WBC (Bld)0.2 %.[facility] – JacksonEosinophils Auto (Bld) [#/Vol]Ordered By: Brook Huddleston on 99-80-5376Deldewsiivy (Bld) [#/Vol]0.4 10*3/uL0.0-0.45[facility] – JacksonEosinophils/100 WBC Auto (Bld)Ordered By: Brook Huddleston on 10-08-2023 Eosinophils/100 WBC (Bld)6.1 %.[facility] – JacksonFerritin [Mass/volume] in Serum or PlasmaOrdered By: Brook Huddleston on 01-21-1328Gozcsbgm [Mass/Vol]175.4 ng/mL23.9-336.2FChildren's Hospital for RehabilitationFerritin [Mass/Vol]Ferritin [Mass/volume] in Serum or Tvgfcr58.9-336.2FChildren's Hospital for RehabilitationGamma globulin/Protein.total in 24 hour Urine by Electrophoresis Ordered By: Brook Huddleston on 60-10-5060Mjpzl globulin Elph (24H U) [Mass fraction] 13.6 %.[facility] – JacksonIgA [Mass/volume] in Serum or Plasma Ordered By: Brook Huddleston on 46-39-4028AhD [Mass/Vol]165 mg/lK46-269XyconrhfuHolzer Medical Center – JacksonIgG [Mass/volume] in Serum or PlasmaOrdered By: Brook Huddleston on 44-56-9142KfV [Mass/Vol]881 mg/uJ981-4270LhphsfymkHolzer Medical Center – Jackson IgM [Mass/volume] in Serum or PlasmaOrdered By: Brook Huddleston on 65-03-2580UuL [Mass/Vol]63 mg/tL05-377UcmkfztiqHolzer Medical Center – JacksonComment on above: Performed at: [place] [id number] Director: Melchor Agrawal PhD, Phone: [phone] light chains.kappa.free [Mass/volume] in SerumOrdered By: Brook Huddleston on 10-08-2023 Immunoglobulin light chains.kappa.free (S) [Mass/Vol]44.9 mg/L3.3-19.4FChildren's Hospital for RehabilitationImmunoglobulin light chains.kappa.free/Immunoglobulin light chains.lambda.free [MassOrdered By: Brook Huddleston on 27-53-1205Dmaeeknchoekhv light chains.kappa.free/Immunoglobulin light chains.lambda.free (S) [Mass ratio] 1.610.26-1.65[facility] – JacksonComment on above:Performed at: [place] [id number] Director: Melchor Agrawal PhD, Phone: [phone] light chains.lambda.free [Mass/volume] in Serum or PlasmaOrdered By: Brook Huddleston on 10-08-2023 Immunoglobulin light chains.lambda.free [Mass/Vol]27.9 mg/L5.7-26.3FChildren's Hospital for RehabilitationIron [Mass/volume] in Serum or PlasmaOrdered By: Brook Huddleston on 47-44-1314Hgzj [Mass/Vol]82 ug/sS06-471ZibspbdcwHolzer Medical Center – JacksonIron [Mass/Vol]Iron [Mass/volume] in Serum or Pzxbmi20-651XkgfazvnfHolzer Medical Center – JacksonIron binding capacity [Mass/volume] in Serum or Plasma Ordered By: Brook Huddleston on 37-51-0489Lova binding capacity [Mass/Vol]235 ug/dLLow 255-450Hol[facility] – JacksonIron saturation [Mass Fraction] in Serum or PlasmaOrdered By: Brook Huddleston on 47-50-9652Liyy saturation [Mass fraction]34.9 %20-50[facility] – JacksonLactate dehydrogenase [Enzymatic activity/volume] in Serum or Plasma by Lactate to pyOrdered By: Brook Huddleston on 55-73-2839VNP Lactate to pyruvate reaction [Catalytic activity/Vol]150 U/L 140-271Hol[facility] Medical Center – JacksonLymphocytes Auto (Bld) [#/Vol]Ordered By: Brook Huddleston on 25-54-8184Gblaofsoxyt (Bld) [#/Vol]0.9 10*3/uL1.00-4.8[facility] – JacksonLymphocytes/100 WBC Auto (Bld)Ordered By: Brook Huddleston on 36-51-0274Lmmjxhniftd/100 WBC (Bld)13.1 %.[facility] Monocytes Auto (Bld) [#/Vol]Ordered By: Brook Huddleston on 44-50-5698Jyxjonvop (Bld) [#/Vol]0.3 10*3/uL0.0-0.8[facility] – JacksonMonocytes/100 WBC Auto (Bld)Ordered By: Brook Huddleston on 54-33-0094Ocyjjendg/100 WBC (Bld)4.5 %.[facility] – JacksonNeutrophils Auto (Bld) [#/Vol]Ordered By: Brook Huddleston on 70-59-9633Hwfeqmhabyc (Bld) [#/Vol]5.0 10*3/uL1.8-7.7FChildren's Hospital for RehabilitationNeutrophils/100 WBC Auto (Bld)Ordered By: Brook Huddleston on 10-08-2023 Neutrophils/100 WBC (Bld)76.1 %.[facility] – JacksonNo Panel InformationOrdered By: Brook Huddleston on 34-39-5579Jztxhzf Electrophoresis M-SpikeNot observed g/dLNot ObservedHolzer Medical Center – JacksonProtein Electrophoresis NoteSee comment.[facility] – JacksonComment on above:Protein electrophoresis scan will follow via computer,mail, or camera supervisor delivery.Performed at: [place] [id number] Director: Melchor Agrawal PhD, Phone: [phone] Random Prot Electrophor NoteSee comment.[facility] – JacksonComment on above: Protein electrophoresis scan will follow via computer,mail, or camera supervisor delivery. Nucleated erythrocytes [Presence] in Blood by Automated countOrdered By: Brook Huddleston on 88-40-5465Xiqpmzbnu RBC Auto Ql (Bld)0.0 /100{WBC}0-0.5FChildren's Hospital for RehabilitationProtein [Mass/volume] in Serum or PlasmaOrdered By: Brook Huddleston on 21-72-6613Zzsnrqv [Mass/Vol]6.5 g/dL6.0-8.5FChildren's Hospital for RehabilitationProtein [Mass/volume] in UrineOrdered By: Brook Huddleston on 57-09-1531Pyrbzzy (U) [Mass/Vol]302.5 mg/dLNot Estab.[facility] – JacksonComment on above:Results confirmed ondilution.Protein.monoclonal/Protein.total in 24 hour Urine by ElectrophoresisOrdered By: Brook Huddleston on 89-76-7897Errajyu.monoclonal Elph (24H U) [Mass fraction]Comment: %Not ObservedHolzer Medical Center – JacksonComment on above:UPE shows an asymmetrical gamma.Serum globulin measurement (mass/volume)Ordered By: Brook Huddleston on 43-02-2390Fhfsvoaj (S) [Mass/Vol]2.9 g/dL2.2-3.9[facility] Hospitalerum or plasma albumin/globulin mass ratioOrdered By: Brook Huddleston on 42-12-2384Jvuxnec/Globulin [Mass ratio]1.2 {ratio}0.7-1.7FOhio State Harding Hospitalerum or plasma alpha 1 globulin measurement by electrophoresis (mass/volume)Ordered By: Brook Huddleston on 76-29-4284Vlpgj 1 globulin Elph [Mass/Vol]0.3 g/dL0.0-0.4FOhio State Harding Hospitalerum or plasma alpha 2 globulin measurement by electrophoresis (mass/volume)Ordered By: Brook Huddleston on 33-22-7621Tjfrw 2 globulin Elph [Mass/Vol]0.9 g/dL0.4-1.0[facility] Hospitalerum or plasma beta globulin measurement by electrophoresis (mass/volume)Ordered By: Brook Huddleston on 25-39-7499Incj globulin Elph [Mass/Vol]0.8 g/dL0.7-1.3FOhio State Harding Hospitalerum or plasma gamma globulin measurement by electrophoresis (mass/volume)Ordered By: Brook Huddleston on 30-56-4262Jxsgb globulin Elph [Mass/Vol] 0.9 g/dL0.4-1.8[facility] Hospitalerum or plasma iron binding capacity measurement (mass/volume)Ordered By: Brook Huddleston on 76-97-0214Ondi binding capacity [Mass/Vol]Iron binding capacity [Mass/volume] in Serum or GcjiglHbr534-774YtjomrxhjToledo Hospitalerum or plasma iron saturation measurement (mass fraction)Ordered By: Brook Huddleston on 20-51-7921Tlho saturation [Mass fraction]Iron saturation [Mass Fraction] in Serum or Vnnazk24-75EkzpmimhtToledo Hospitalerum or plasma methylmalonate measurement (moles/volume) Ordered By: Brook Huddleston on 69-05-4700Eabojxxeveoyed [Moles/Vol]402 nmol/L0-378 [facility] – JacksonComment on above:This test was developed and its performance characteristicsdetermined by [employer]. It has not been cleared orapproved by the Food and Drug Administration.Performed at: [address] [id number] Director: Aliya Curtis MD, Phone: [phone] [Mass/volume] in Serum or PlasmaOrdered By: Brook Huddleston on 73-19-0202Kcqhsckfaxl [Mass/Vol]168 mg/lZKbl786-521UnyzclvzkHolzer Medical Center – JacksonTransferrin [Mass/Vol]Transferrin [Mass/volume] in Serum or Plasma Dwv138-248JfucufnnmHolzer Medical Center – JacksonUrine alpha 1 globulin/total protein by electrophoresisOrdered By: Brook Huddleston on 35-94-4989Dxdks 1 globulin Elph (U) [Mass fraction]4.4 %.[facility] – JacksonUrine alpha 2 globulin/total protein ratio by electrophoresisOrdered By: Brook Huddleston on 71-08-3350Rdjlg 2 globulin Elph (U) [Mass fraction]11.8 %.[facility] – JacksonUrine beta globulin measurement by electrophoresis (mass/volume) Ordered By: Brook Huddleston on 61-15-8502Csin globulin Elph (U) [Mass/Vol]23.1 %. [facility] – JacksonWBC Auto (Bld) [#/Vol]Ordered By: Brook Huddleston on 69-63-2113RXX (Bld) [#/Vol]6.6 10*3/uL4.1-10.5FChildren's Hospital for Rehabilitation Alanine aminotransferase [Enzymatic activity/volume] in Serum or PlasmaOrdered By: Brook Huddleston on 43-24-3374WMF [Catalytic activity/Vol]20 U/L7-52[facility] – JacksonAlbumin [Mass/volume] in Serum or Plasma by Bromocresol green (BCG) dye binding methoOrdered By: Brook Huddleston on 90-17-4128Sdhogbq BCG dye [Mass/Vol]3.8 g/dL3.5-5.7FChildren's Hospital for RehabilitationAlkaline phosphatase [Enzymatic activity/volume] in Serum or PlasmaOrdered By: Brook Huddleston on 58-86-0457CTX [Catalytic activity/Vol]87 U/Y39-029ZosbibdyvHolzer Medical Center – JacksonAspartate aminotransferase [Enzymatic activity/volume] in Serum or Plasma Ordered By: Brook Huddleston on 84-85-0429GFC [Catalytic activity/Vol]17 U/L13-39 [facility] – JacksonBasophils Auto (Bld) [#/Vol]Ordered By: Brook Huddleston on 36-43-0823Rofdrxdyc (Bld) [#/Vol]0.0 10*3/uL0.0-0.2FChildren's Hospital for RehabilitationBasophils/100 WBC Auto (Bld)Ordered By: Brook Huddleston on 09-28-2023 Basophils/100 WBC (Bld)0.3 %.[facility] – JacksonBilirubin.total [Mass/volume] in Serum or PlasmaOrdered By: Brook Huddleston on 46-78-5448Jiksufxbz [Mass/Vol]0.4 mg/dL0.3-1.0[facility] – JacksonCBC W Auto Differential panel (Bld)on [id number] (Bld) [#/Vol]0.0 10*3/uL0.0 - 0.2 10*3/uLNOMS HealthcareBasophils/100 WBC Manual cnt (Syn fld)0.3 %.[facility] HealthcareEosinophils (Bld) [#/Vol]0.2 10*3/uL0.0 - 0.45 10*3/uLNOMS Healthcare Eosinophils/100 WBC Manual cnt (Syn fld)3.7 %.[facility] HealthcareErythrocyte distribution width (RBC) [Ratio]16.9 %High12.0 - 14.8 %[facility] HealthcareHematocrit (Bld) [Volume fraction]28.8 %Low38.8 - 50.0 %NOM HealthcareHemoglobin (Bld) [Mass/Vol]9.7 g/dLLow13.0 - 17.0 g/dLNOUT HealthcareInterpretation and review of laboratory resultsAbnormalNOUT HealthcareLymphocytes (Bld) [#/Vol]0.9 10*3/uL Low1.00 - 4.8 10*3/uLNOMS HealthcareLymphocytes/100 WBC Manual cnt (Syn fld)14.4 %.[facility] HospitalMCH (RBC) [Entitic mass]36.5 nwXaoh80.5 - 35.2 pgNOSaint Luke's Health SystemHC (RBC) [Mass/Vol]33.8 g/dL32.5 - 35.6 g/dLCooper County Memorial HospitalMCV (RBC) [Entitic vol]107.9 mDCjtn26.5 - 101 fLNOUT HealthcareMonocytes (Bld) [#/Vol]0.4 10*3/uL0.0 - 0.8 10*3/uLNOMS HealthcareMonocytes+Macrophages/100 WBC Manual cnt (Syn fld)5.9 %.[facility] HealthcareNeutrophils (Bld) [#/Vol]4.9 10*3/uL1.8 - 7.7 10*3/uLNOMS HealthcareNeutrophils/100 WBC Manual cnt (Syn fld)75.7 %.[facility] HealthcareNRBC0.1 /100{WBC}0 - 0.5 /100{WBC}[facility] HealthcarePlatelet mean volume (Bld) [Entitic vol]7.9 fL6.6 - 10.1 fLNOMS HealthcarePlatelets (Bld) [#/Vol]167 10*3/uL150 - 450 10*3/uLNOMS HealthcareRBC LM.HPF (Urine sed) [#/Area]2.67 /[HPF]Low3.90 - 5.60N[facility] HealthcareWBC (Bld) [#/Vol]6.5 10*3/uL4.1 - 10.5 10*3/uLNOMS HealthcareWBC LM.HPF (Urine sed) [#/Area]6.5 10*3/uL4.1 - 10.5 10*3/uLNOMS HealthcareNOMS HealthcareCalcium [Mass/volume] in Serum or Plasma Ordered By: Brook Huddleston on 46-92-9640Pkaysjb [Mass/Vol]8.8 mg/dL8.6-10.3FChildren's Hospital for RehabilitationCarbon dioxide, total [Moles/volume] in Serum or Plasma Ordered By: Brook Huddleston on 54-36-9621PF6 [Moles/Vol]25.0 mmol/L21.0-31.0[facility] JacksonChloride [Moles/volume] in Serum or PlasmaOrdered By: Brook Huddleston on 05-56-9052Pukhhbge [Moles/Vol]109 mmol/Q27-594PteotcqsoHolzer Medical Center – JacksonComprehensive metabolic panelon 98-52-0441Fylgnwq [Mass/Vol]3.8 g/dL3.5 - 5.7 g/dLNOUT HealthcareAlbumin/Globulin [Mass ratio]1.6 {ratio}[facility] HealthcareALP [Catalytic activity/Vol]87 U/L34 - 104 U/LNOMS HealthcareALT [Catalytic activity/Vol]20 U/L7 - 52 U/LNOMS HealthcareAnion gap [Moles/Vol]10.4 mmol/L6.0 - 15.0[facility] HealthcareAST [Catalytic activity/Vol]17 U/L13 - 39 U/L [facility] HealthcareBilirubin [Mass/Vol]0.4 mg/dL0.3 - 1.0 mg/dLNOMS Healthcare Calcium [Mass/Vol]8.8 mg/dL8.6 - 10.3 mg/dLNOMS HealthcareChloride [Moles/Vol] 109 mmol/LHigh98 - 107 mmol/LNOMS HealthcareCO2 [Moles/Vol]25.0 mmol/L21.0 - 31.0 mmol/LNOMS HealthcareCreatinine (U) [Mass/Vol]1.74 mg/dLHigh0.70 - 1.30 mg/dLNOMS HealthcareCREATININE CLR CALC DURGTUAZ35.89N[facility] HealthcareGFR/1.73 sq M.predicted MDRD (S/P/Bld) [Vol rate/Area]39.632 mL/min/{1.73_m2}[facility] Globulin (S) [Mass/Vol]2.4 g/dLNOMS HealthcareGlucose [Mass/Vol]174 mg/tILkil18 - 100 mg/dLNOMS HealthcareComment on above:Random Glucose Reference Range is dependent on time and content of last meal. Glucose of more than 200 mg/dL in a nonstressed, ambulatory subject supports the diagnosis of Diabetes Mellitus. ADA recommended reference range Interpretation and review of laboratory resultsAbnormalNOMS HealthcarePotassium [Moles/Vol]4.4 mmol/L3.5 - 5.1 mmol/LNOMS HealthcareProtein [Mass/Vol]6.2 g/dL Low6.4 - 8.9 g/dLNOMS HealthcareSodium [Moles/Vol]140 mmol/L136 - 145 mmol/LNOMS HealthcareUrea nitrogen [Mass/Vol]28 mg/dLHigh7 - 25 mg/dLNOMS HealthcareNOMS HealthcareCreatinine [Mass/volume] in Serum or PlasmaOrdered By: Brook Huddleston on 36-09-7326Loyhywalza [Mass/Vol]1.74 mg/dL0.70-1.30[facility] JacksonEosinophils Auto (Bld) [#/Vol]Ordered By: Brook Huddleston on 09-28-2023 Eosinophils (Bld) [#/Vol]0.2 10*3/uL0.0-0.45[facility] Eosinophils/100 WBC Auto (Bld)Ordered By: Brook Huddleston on 12-21-8018Xpvopbpacla/100 WBC (Bld)3.7 %.[facility] – JacksonErythrocyte distribution width Auto (RBC) [Ratio]Ordered By: Brook Huddleston on 08-30-6440Xjmmgaocekr distribution width (RBC) [Ratio]16.9 %12.0-14.8[facility] – JacksonGlobulin Calc (S) [Mass/Vol]Ordered By: Brook Huddleston on 42-11-3238Mjlabkay (S) [Mass/Vol]2.4 g/dLHolzer Medical Center – JacksonGlucose [Mass/volume] in Serum or Plasma Ordered By: Brook Huddleston on 52-89-9436Qlijjcp [Mass/Vol]174 mg/aY58-083AfulxmktcHolzer Medical Center – JacksonComment on above:ADA recommended reference rangeRandom Glucose Reference Range is dependent on time and content of last meal. Glucose of more than 200 mg/dL in a nonstressed, ambulatory subject supports the diagnosisof Diabetes Mellitus.Hematocrit Auto (Bld) [Volume fraction]Ordered By: Brook Huddleston on 69-32-6528Hnqryhwsmy (Bld) [Volume fraction]28.8 %38.8-50.0 [facility] JacksonHemoglobin [Mass/volume] in BloodOrdered By: Brook Huddleston on 35-78-9705Lyeijymdxl (Bld) [Mass/Vol]9.7 g/dL13.0-17.0[facility] JacksonLeukocytes [#/volume] corrected for nucleated erythrocytes in Blood by Automated counOrdered By: Brook Huddleston on 75-59-4662QJU corrected for nucl RBC Auto (Bld) [#/Vol]6.5 10*3/uL4.1-10.5FChildren's Hospital for RehabilitationLymphocytes Auto (Bld) [#/Vol]Ordered By: Brook Huddleston on 09-28-2023 Lymphocytes (Bld) [#/Vol]0.9 10*3/uL1.00-4.8[facility] Lymphocytes/100 WBC Auto (Bld)Ordered By: Brook Huddleston on 04-01-9134Pdqefwsmulj/100 WBC (Bld)14.4 %.[facility] CenterH Auto (RBC) [Entitic mass] Ordered By: Brook Huddleston on 85-28-2811OFD (RBC) [Entitic mass]36.5 pg27.5-35.2 [facility] JacksonMCHC Auto (RBC) [Mass/Vol]Ordered By: Brook Huddleston on 60-08-7926AYLT (RBC) [Mass/Vol]33.8 g/dL32.5-35.6FChildren's Hospital for RehabilitationMCV Auto (RBC) [Entitic vol]Ordered By: Brook Huddleston on 37-08-1366XZT (RBC) [Entitic vol]107.9 fL83.5-101[facility] – JacksonMonocytes Auto (Bld) [#/Vol]Ordered By: Brook Huddelston on 97-99-7416Hcvwfxbag (Bld) [#/Vol]0.4 10*3/uL0.0-0.8[facility] JacksonMonocytes/100 WBC Auto (Bld) Ordered By: Brook Huddleston on 39-40-1996Jsucbwvlg/100 WBC (Bld)5.9 %.[facility] – JacksonNeutrophils Auto (Bld) [#/Vol]Ordered By: Brook Huddleston on 81-22-3606Qkovpmphkfz (Bld) [#/Vol]4.9 10*3/uL1.8-7.7FChildren's Hospital for RehabilitationNeutrophils/100 WBC Auto (Bld)Ordered By: Brook Huddleston on 09-28-2023 Neutrophils/100 WBC (Bld)75.7 %.[facility] – JacksonNo Panel InformationOrdered By: Brook Huddleston on 51-52-3166Rlbbrpbaz GFR (CKD-EPI)39.632 mL/MinHolzer Medical Center – JacksonPharmacy Creatinine Clearance (Chem40.89 [facility] – JacksonNucleated erythrocytes [Presence] in Blood by Automated countOrdered By: Brook Huddleston on 09-04-2687Uzowwzcas RBC Auto Ql (Bld)0.1 /100{WBC}0-0.5FChildren's Hospital for RehabilitationPlatelet mean volume Auto (Bld) [Entitic vol]Ordered By: Brook Huddleston on 66-79-9970Jtshaizf mean volume (Bld) [Entitic vol]7.9 fL6.6-10.1FChildren's Hospital for RehabilitationPlatelets Auto (Bld) [#/Vol]Ordered By: Brook Huddleston on 06-03-1926Sbclxmari (Bld) [#/Vol]167 10*3/uL 150-450[facility] – JacksonPotassium [Moles/volume] in Serum or PlasmaOrdered By: Brook Huddleston on 84-46-2571Xfmldrssf [Moles/Vol]4.4 mmol/L3.5-5.1 [facility] JacksonProtein [Mass/volume] in Serum or PlasmaOrdered By: Brook Huddleston on 83-92-9927Qspjoxv [Mass/Vol]6.2 g/dL6.4-8.9[facility] – JacksonRBC Auto (Bld) [#/Vol]Ordered By: Brook Huddleston on 79-28-7038GBP (Bld) [#/Vol]2.67 10*6/uL3.90-5.60[facility] Hospitalerum or plasma albumin/globulin mass ratioOrdered By: Brook Huddleston on 25-58-0530Nfyhext/Globulin [Mass ratio]1.6 {ratio}[facility] Hospitalerum or plasma anion gap determinationOrdered By: Brook Huddleston on 96-67-3161Hstpx gap [Moles/Vol]10.4 mmol/L6.0-15.0[facility] Hospitalodium [Moles/volume] in Serum or PlasmaOrdered By: Brook Huddleston on 14-33-1456Qxlzvv [Moles/Vol]140 mmol/K939-007 [facility] – JacksonUrea nitrogen [Mass/volume] in Serum or Plasma Ordered By: Brook Huddleston on 88-37-9709Qpcd nitrogen [Mass/Vol]28 mg/dL7-25[facility] – JacksonWBC Auto (Bld) [#/Vol]Ordered By: Brook Huddleston on 46-72-3566OZM (Bld) [#/Vol]6.5 10*3/uL4.1-10.5FChildren's Hospital for Rehabilitation Lab Reportson 54-02-6283Jlb Reports [id number]#1.00TIFFNormalFisher [facility] HospitalLab [id number]#1.00TIFFNormalCarteret Health Career [facility] HospitalOperative Reporton 10-21-9755Wkjmibbkw Report [id number]#1.00TIFFNormalCarteret Health Career [facility] HospitalLab Reportson 76-70-6326Zqb Reports [id number]#1.00TIFFNormalGrant HospitalLab [id number]#1.00TIFFNormarjunGrant HospitalConsent for Procedure/Surgeryon 94-77-4836Ndkvmgf for Procedure/[id number]#1.00TIFFNormarjunCarteret Health Career [facility] Reportson 72-08-2254Iln Reports [id number]#1.00TIFFNormalCarteret Health Career [facility] HospitalLab [id number]#1.00TIFFNormalCarteret Health Career [facility] HospitalLab [id number]#1.00TIFF NormalGrant HospitalLab Reports [id number]#1.00TIFFNormarjunGrant HospitalRAD - MISCon 25-76-3302GML - MIS [id number]#1.00TIFFNormalCarteret Health Career [facility] Reportson 22-55-6497Kdk Reports [id number]#1.00TIFFNormalFisher [facility] Urineon 96-21-4987Iacufnmf identified Cx Nom (U)Microbiology PROCEDURE: Urine Culture [R1] SOURCE: U Cath BODY SITE: COLLECTED DATE/TIME: 08/11/2023 11:05 EST RECEIVED DATE/TIME: 08/11/2023 12:44 EST START DATE/TIME: 08/11/2023 12:44 EST FREE TEXT SOURCE: Diego RICKS, Orquidea Issa MD, Orquidea Taylor FINAL REPORTS Final Report [] Verified Date/Time: 08/15/2023 10:39 EST 10,000 cfu/ml Jessica albicans Presumptive isolated. 400 cfu/ml Stenotrophomonas maltophilia isolated. SUSCEPTIBILITY RESULTS LEGEND: S=Susceptible, N/R=Not Reported, Blank=Data not available, or drug not advisable or tested, I=Intermediate, ESBL=Extended spectrum beta-lactamase, R=Resistant, TFG=Thymidine-dependent strain, RADHA=Beta-lactamase positive, DEEPA=mcg/m;(mg/L), S*=Predicted susceptible interp, R*=Predicted resistant interp Stemal Antibiotic DEEPA Dilutn DEEPA Interp Levofloxacin >4 R Trimethoprim/ <=2/38 S Sulfa Performing Locations R1: This test was performed at: [facility], [address] [place] [address], [address]- , [place], JkrhuuZibyqlGrant HospitalComment on above:Performed By: #### [id number] #### [facility] [address] [place] [address]Azrjldqetw Visit Summaryon 84-13-0236Nvxpeucdiw Visit Summary PATSY MILLS :1945 Visit Date:07/22/2023 [...] Chew Tab) atorvastatin (atorvastatin 20 mg Tab) bifidobacterium-lactobacillus (Probiotic + Colostrum) cholecalciferol (Vitamin D3 2000 [...] stent (06/10/2023), ESWL of kidney (06/10/2023), Cystostomy andinsertion of suprapubic tube (03/05/2023), Cystoscopic insertion of ureteric stent (12/10/2022), TURP - Transurethral resection of prostate (08/27/2022), Transurethral insertion of prostatic urethrallift implant (05/05/2022), Cystoscopic removal of ureteric stent (08/20/2012), Cystoscopic ureteroneocystostomy with insertion 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 Discharge Vitals Heart Rate (Peripheral) 74 Blood Pressure 128/84 Height 171 cm Height 67 in Weight 94 kg Weight 206.8 lb BMI 32.15 What to do next Scheduled Follow-Up Appointments Thursday 10:30 AM EST Where: [facility] LettyGrant HospitalPatient Educationon 82-78-3288Pxjcijt EducationUrology Ureteral Stent Implantation, Care After The following [...] these instructions at home: Medicines ? Take uufi-azc-rlamznu and prescription medicines only as told by [...] to prevent or treat constipation: ? Take kjlo-buj-oxtfbul or prescription medicines. ? Eat foods that [...] These can delay healing after surgery. If youneed help quitting, ask your health care provider. [...] for up to 1 week. ? Take cwun-fzs-xzjciqq and prescription medicines only as told by [...] provider. Document Revised: 09/08/2022 Document Reviewed: 09/08/2022 [employer] Patient Education ? 2022 [employer]. Suprapubic Catheter Replacement Suprapubic catheter replacement is [...] to wear a catheter (more content not included)...[facility] HospitalU[facility] Office/Clinic Noteon 47-13-1475Jxdcudc Office/Clinic Note Chief Complaint SP change HPI [...] and history for this patient from Dr. Issa. I have reviewed and verified the staff [...] change. The SP tube 16 fr 2-way gunn catheter has been changed today in the office without difficulty, and the tube irrigated to ensure proper placement. 15 cc in balloon. Gunn catheter is placed to leg bag drainage. [...] recommendations of SP tube, stent, definitive care whichis more invasive (cystectomy). He is s/p right [...] week exchanges. Exchanged today without difficulty. Ordered: [id number] Change Cystostomy Tube Urology Procedure Order Urology Procedure Order 2. OAB (overactive bladder) (N32.81: Overactive bladder) Baseline very severe lower urinary tract symptoms. No improve (more content not included)...[facility] Comment on above:Result Comment: Electronically Signed By: Orquidea Issa MD\.br\Date and Time Signed: 07/22/23 18:39EST\.br\Electronically Co-Signed By: Cornelia De Leon\.br\Date and Time Co-Signed: 07/22/23 10:16 ESTRAD - MISCon 90-86-1604CHY - [id number]#1.00TIFFNormal Grant HospitalAlanine aminotransferase [Enzymatic activity/volume] in Serum or PlasmaOrdered By: Brook Huddleston on 17-29-7243LQT [Catalytic activity/Vol]14 U/L7-52[facility] Medical CenterAlbumin [Mass/volume] in Serum or Plasma by Bromocresol green (BCG) dye binding methoOrdered By: Brook Huddleston on 66-43-9017Tizojqs BCG dye [Mass/Vol]3.9 g/dL3.5-5.7FChildren's Hospital for RehabilitationAlkaline phosphatase [Enzymatic activity/volume] in Serum or PlasmaOrdered By: Brook Huddleston on 38-04-8393BUR [Catalytic activity/Vol]96 U/L 34-104[facility] – JacksonAspartate aminotransferase [Enzymatic activity/volume] in Serum or PlasmaOrdered By: Brook Huddleston on 24-13-9013QTC [Catalytic activity/Vol]17 U/E93-65RnubabfcxHolzer Medical Center – JacksonBasophils Auto (Bld) [#/Vol]Ordered By: Brook Huddleston on 89-09-8784Kurkssknv (Bld) [#/Vol]0.0 10*3/uL0.0-0.2FChildren's Hospital for RehabilitationBasophils/100 WBC Auto (Bld) Ordered By: Brook Huddleston on 83-93-0131Ogyegaxok/100 WBC (Bld)0.3 %.[facility] – JacksonBilirubin.total [Mass/volume] in Serum or PlasmaOrdered By: Brook Huddleston on 63-81-6572Cskjhvjmn [Mass/Vol]0.4 mg/dL0.3-1.0[facility] – JacksonCalcium [Mass/volume] in Serum or PlasmaOrdered By: Brook Huddleston on 61-85-9406Ujbtooe [Mass/Vol]8.8 mg/dL8.6-10.3FChildren's Hospital for RehabilitationCarbon dioxide, total [Moles/volume] in Serum or PlasmaOrdered By: Brook Huddleston on 73-98-2218PO6 [Moles/Vol]25.2 mmol/L21.0-31.0[facility] – JacksonChloride [Moles/volume] in Serum or PlasmaOrdered By: Brook Huddleston on 93-95-6510Haqgasbv [Moles/Vol]109 mmol/J92-909IhplyzyoxHolzer Medical Center – Jackson Creatinine [Mass/volume] in Serum or PlasmaOrdered By: Brook Huddleston on 07-14-2023 Creatinine [Mass/Vol]1.74 mg/dL0.70-1.30[facility] Eosinophils Auto (Bld) [#/Vol]Ordered By: Brook Huddleston on 16-17-6363Klplzmwlzzw (Bld) [#/Vol]0.3 10*3/uL0.0-0.45[facility] – JacksonEosinophils/100 WBC Auto (Bld)Ordered By: Brook Huddleston on 24-19-7972Qfulchghpij/100 WBC (Bld)3.4 % .[facility] – JacksonErythrocyte distribution width Auto (RBC) [Ratio]Ordered By: Brook Huddleston on 10-88-5109Oqejaseasbs distribution width (RBC) [Ratio]16.5 %12.0-14.8[facility] – JacksonGlobulin Calc (S) [Mass/Vol]Ordered By: Brook Huddleston on 45-51-3532Myughdrt (S) [Mass/Vol]2.2 g/dL [facility] – JacksonGlucose [Mass/volume] in Serum or PlasmaOrdered By: Brook Huddleston on 54-28-0811Hakmlot [Mass/Vol]70 mg/qC94-843TiahncjwhHolzer Medical Center – JacksonComment on above:ADA recommended reference rangeRandom Glucose Reference Range is dependent on time and content of last meal. Glucose of more than 200 mg/dL in a nonstressed, ambulatory subject supports the diagnosisof Diabetes Mellitus.Hematocrit Auto (Bld) [Volume fraction]Ordered By: Brook Huddleston on 42-44-0785Hxdyhaaxub (Bld) [Volume fraction]28.7 %38.8-50.0[facility] – JacksonHemoglobin [Mass/volume] in BloodOrdered By: Brook Huddleston on 26-33-6551Lcysokjylz (Bld) [Mass/Vol]9.6 g/dL13.0-17.0[facility] – JacksonLeukocytes [#/volume] corrected for nucleated erythrocytes in Blood by Automated counOrdered By: Brook Huddleston on 85-82-6697FXP corrected for nucl RBC Auto (Bld) [#/Vol]7.9 10*3/uL4.1-10.5FChildren's Hospital for RehabilitationLymphocytes Auto (Bld) [#/Vol]Ordered By: Brook Huddleston on 26-12-4115Vhehwwlgcnj (Bld) [#/Vol] 1.1 10*3/uL1.00-4.8[facility] – JacksonLymphocytes/100 WBC Auto (Bld)Ordered By: Brook Huddleston on 41-33-0516Nuonvjmkckc/100 WBC (Bld)13.4 %. [facility] CenterH Auto (RBC) [Entitic mass]Ordered By: Brook Huddleston on 61-06-4095JBL (RBC) [Entitic mass]36.1 pg27.5-35.2FChildren's Hospital for RehabilitationMCHC Auto (RBC) [Mass/Vol]Ordered By: Brook Huddleston on 67-78-1888DIDM (RBC) [Mass/Vol]33.5 g/dL32.5-35.6FChildren's Hospital for RehabilitationMCV Auto (RBC) [Entitic vol]Ordered By: Brook Huddleston on 32-62-2314RYS (RBC) [Entitic vol] 107.8 fL83.5-101[facility] – JacksonMonocytes Auto (Bld) [#/Vol] Ordered By: Brook Huddleston on 06-16-4507Ybudmsqsu (Bld) [#/Vol]0.3 10*3/uL0.0-0.8 [facility] JacksonMonocytes/100 WBC Auto (Bld)Ordered By: Brook Huddleston on 52-39-4559Xstzjlwir/100 WBC (Bld)4.1 %.[facility] – JacksonNeutrophils Auto (Bld) [#/Vol]Ordered By: Brook Huddleston on 07-14-2023 Neutrophils (Bld) [#/Vol]6.2 10*3/uL1.8-7.7FChildren's Hospital for Rehabilitation Neutrophils/100 WBC Auto (Bld)Ordered By: Brook Huddleston on 08-71-5915Mdqyybxrzme/100 WBC (Bld)78.8 %.[facility] – JacksonNo Panel InformationOrdered By: Brook Huddleston on 67-03-3458Vmkdkkfbu GFR (CKD-EPI)39.632 mL/MinHolzer Medical Center – JacksonPharmacy Creatinine Clearance (Chem40.89[facility] – JacksonNucleated erythrocytes [Presence] in Blood by Automated countOrdered By: Brook Huddleston on 04-54-1862Gfkguemso RBC Auto Ql (Bld)0.1 /100{WBC} 0-0.5FChildren's Hospital for RehabilitationPlatelet mean volume Auto (Bld) [Entitic vol]Ordered By: Brook Huddleston on 59-96-7444Ijvkivze mean volume (Bld) [Entitic vol] 8.4 fL6.6-10.1FChildren's Hospital for RehabilitationPlatelets Auto (Bld) [#/Vol] Ordered By: Brook Huddleston on 84-49-1631Hymwvvuvw (Bld) [#/Vol]156 10*3/nU522-680 [facility] – JacksonPotassium [Moles/volume] in Serum or Plasma Ordered By: Brook Huddleston on 37-96-7747Hwhozhmqc [Moles/Vol]4.0 mmol/L3.5-5.1 [facility] – JacksonProtein [Mass/volume] in Serum or PlasmaOrdered By: Brook Huddleston on 19-60-0973Glixkrc [Mass/Vol]6.1 g/dL6.4-8.9[facility] – JacksonRBC Auto (Bld) [#/Vol]Ordered By: Brook Huddleston on 99-41-6222GJG (Bld) [#/Vol]2.66 10*6/uL3.90-5.60[facility] Hospitalerum or plasma albumin/globulin mass ratioOrdered By: Brook Huddleston on 14-75-0316Qdpqrkx/Globulin [Mass ratio]1.8 {ratio}[facility] Hospitalerum or plasma anion gap determinationOrdered By: Brook Huddleston on 65-83-6520Sglxg gap [Moles/Vol]8.8 mmol/L6.0-15.0[facility]edo Hospitalodium [Moles/volume] in Serum or PlasmaOrdered By: Brook uHddleston on 16-53-2815Wdbkgb [Moles/Vol]139 mmol/U391-208 [facility] – JacksonUrea nitrogen [Mass/volume] in Serum or Plasma Ordered By: Brook Huddleston on 86-91-4831Xhva nitrogen [Mass/Vol]24 mg/dL7-25[facility] – JacksonWBC Auto (Bld) [#/Vol]Ordered By: Brook Huddleston on 56-11-3488MBP (Bld) [#/Vol]7.9 10*3/uL4.1-10.5FChildren's Hospital for RehabilitationC Urineon 76-04-9995Mkryqgrk identified Cx Nom (U)Microbiology PROCEDURE: Urine Culture [R1] SOURCE: U Cath BODY SITE: COLLECTED DATE/TIME: 07/02/2023 11:40 EST RECEIVED DATE/TIME: 07/02/2023 14:16 EST START DATE/TIME: 07/02/2023 14:16 EST FREE TEXT SOURCE: halle Issa MD, Orquidea Issa MD, Orquidea Taylor FINAL REPORTS Final Report [] Verified Date/Time: 07/04/2023 09:25 EST 10,000 cfu/ml Staphylococcus epidermidis SUSCEPTIBILITY RESULTS LEGEND: S=Susceptible, N/R=Not Reported, Blank=Data not available, [...] Locations R1: This test was performed at: [facility], [address] [place] [address], [address]- , , ErydqwQjqxkfEast Liverpool City HospitalComment on above:Performed By: #### [id number] #### [facility] [address] [place] [address]Nmetlirtfu Visit Summaryon 73-93-3534Fpsdxiiolo Visit Summary PATSY MILLS :1945 Visit Date:07/02/2023 Ambulatory Visit Instructions Your Diagnosis UTI (urinary tract infection) Your Care Team Attending Physician - Diego RICKS, Orquidea Taylor Primary Care Physician - HELEN OCHOA MD This Is Your Medications List acyclovir (Zovirax 400 mg Tab) aspirin (aspirin 81 mg Chew Tab) atorvastatin (atorvastatin 20 mg Tab) bifidobacterium-lactobacillus (Probiotic + Colostrum) cholecalciferol (Vitamin D3 2000 [...] Follow-Up Appointments Thursday 9:15 AM EST With: Orquidea Issa MD [facility] CenterAlanine aminotransferase [Enzymatic activity/volume] in Serum or PlasmaOrdered By: Price Crain on 35-09-5717RBV [Catalytic activity/Vol]16 U/L7-52[facility] – JacksonAlbumin [Mass/volume] in Serum or Plasma by Bromocresol green (BCG) dye binding methoOrdered By: Price Crain on 81-31-5918Ogalptw BCG dye [Mass/Vol]3.7 g/dL3.5-5.7FChildren's Hospital for RehabilitationAlkaline phosphatase [Enzymatic activity/volume] in Serum or PlasmaOrdered By: Price Crain on 68-80-0299GUL [Catalytic activity/Vol]102 U/L 34-104[facility] – JacksonAspartate aminotransferase [Enzymatic activity/volume] in Serum or PlasmaOrdered By: Price Crain on 05-80-4271HVV [Catalytic activity/Vol]16 U/A43-76LrlqanudaHolzer Medical Center – Jackson Bilirubin.total [Mass/volume] in Serum or PlasmaOrdered By: Price Crain on 47-42-3523Dkzgcxsgs [Mass/Vol]0.5 mg/dL0.3-1.0[facility] Calcium [Mass/volume] in Serum or PlasmaOrdered By: Price Crain on 06-23-2023 Calcium [Mass/Vol]8.8 mg/dL8.6-10.3FChildren's Hospital for RehabilitationCarbon dioxide, total [Moles/volume] in Serum or PlasmaOrdered By: Price Crain on 06-88-1978TG8 [Moles/Vol]24.7 mmol/L21.0-31.0[facility] Chloride [Moles/volume] in Serum or PlasmaOrdered By: Price Crain on 06-23-2023 Chloride [Moles/Vol]109 mmol/P03-487NjmepaqfmHolzer Medical Center – JacksonCreatinine [Mass/volume] in Serum or PlasmaOrdered By: Price Crain on [id number] [Mass/Vol]1.69 mg/dL0.70-1.30[facility] JacksonCreatinine [Mass/volume] in UrineOrdered By: Price Crain on [id number] (U) [Mass/Vol]133.0 mg/dL14.0-26.0[facility] JacksonErythrocyte distribution width Auto (RBC) [Ratio]Ordered By: Price Crain on 06-23-2023 Erythrocyte distribution width (RBC) [Ratio]16.4 %12.0-14.8[facility] JacksonGlobulin Calc (S) [Mass/Vol]Ordered By: Price Crain on 06-23-2023 Globulin (S) [Mass/Vol]2.3 g/dLHolzer Medical Center – JacksonGlucose [Mass/volume] in Serum or PlasmaOrdered By: Price Crain [id number] [Mass/Vol]117 mg/jZ38-525YejpfscplHolzer Medical Center – JacksonComment on above:ADA recommended reference rangeRandom Glucose Reference Range is dependent on time and content of last meal. Glucose of more than 200 mg/dL in a nonstressed, ambulatory subject supports the diagnosisof Diabetes Mellitus.Hematocrit Auto (Bld) [Volume fraction]Ordered By: Price Crain 13-27-2044Uoozfvdqcl (Bld) [Volume fraction]28.7 %38.8-50.0[facility] – JacksonHemoglobin [Mass/volume] in BloodOrdered By: Price Crain 47-94-4928Uomecwscah (Bld) [Mass/Vol]9.8 g/dL13.0-17.0[facility] – JacksonLeukocytes [#/volume] corrected for nucleated erythrocytes in Blood by Automated coun Ordered By: Price Crain on 60-55-9944MLQ corrected for nucl RBC Auto (Bld) [#/Vol]7.3 10*3/uL4.1-10.5FChildren's Hospital for RehabilitationMCH Auto (RBC) [Entitic mass]Ordered By: Price Crain on 93-37-6586CFD (RBC) [Entitic mass]36.8 pg27.5-35.2FChildren's Hospital for RehabilitationMCHC Auto (RBC) [Mass/Vol]Ordered By: Price Crain on 27-67-3351ZQRQ (RBC) [Mass/Vol]34.1 g/dL32.5-35.6FChildren's Hospital for RehabilitationMCV Auto (RBC) [Entitic vol]Ordered By: Price Crain on 44-76-6942ARM (RBC) [Entitic vol]107.9 fL83.5-101[facility] – JacksonMagnesium [Mass/volume] in Serum or PlasmaOrdered By: Price Crain on 91-12-9299Ulaxpswbu [Mass/Vol]1.8 mg/dL1.9-2.7FChildren's Hospital for Rehabilitation No Panel InformationOrdered By: Price Crain on 00-64-9544Oswlbzmrq GFR (CKD-EPI)41.043 mL/MinHolzer Medical Center – JacksonPharmacy Creatinine Clearance (ChemN/AFChildren's Hospital for RehabilitationParathyrin.intact [Mass/volume] in Serum or PlasmaOrdered By: Price Crain on 06-23-2023 Parathyrin.intact [Mass/Vol]51.9 pg/mU33-08UkehtzqamHolzer Medical Center – Jackson Phosphate [Mass/volume] in Serum or PlasmaOrdered By: Price Crain on 06-23-2023 Phosphate [Mass/Vol]2.9 mg/dL2.5-4.5FChildren's Hospital for RehabilitationPlatelet mean volume Auto (Bld) [Entitic vol]Ordered By: Price Crain on 06-23-2023 Platelet mean volume (Bld) [Entitic vol]8.5 fL6.6-10.1FChildren's Hospital for RehabilitationPlatelets Auto (Bld) [#/Vol]Ordered By: Price Crain on 06-23-2023 Platelets (Bld) [#/Vol]166 10*3/eS946-610ZzazplfjeHolzer Medical Center – Jackson Potassium [Moles/volume] in Serum or PlasmaOrdered By: Price Crain on 32-85-7550Augsbcjpu [Moles/Vol]4.4 mmol/L3.5-5.1FChildren's Hospital for RehabilitationProtein [Mass/volume] in Serum or PlasmaOrdered By: Price Crain on 04-06-7906Vdwqpdu [Mass/Vol]6.0 g/dL6.4-8.9[facility] Protein [Mass/volume] in UrineOrdered By: Price Crain on 68-66-2997Fndgqao (U) [Mass/Vol]377 mg/dL0-9[facility] – JacksonRBC Auto (Bld) [#/Vol] Ordered By: Price Crain on 41-58-5676LSY (Bld) [#/Vol]2.66 10*6/uL3.90-5.60 [facility] Hospitalerum or plasma albumin/globulin mass ratio Ordered By: Price Crain on 32-32-7357Niukptk/Globulin [Mass ratio]1.6 {ratio} [facility] Hospitalerum or plasma anion gap determinationOrdered By: Price Crain on 45-05-2409Uuzpw gap [Moles/Vol]9.7 mmol/L6.0-15.0[facility]edo Hospitalodium [Moles/volume] in Serum or PlasmaOrdered By: Price Crain on 84-90-9218Hyneny [Moles/Vol]139 mmol/M760-956NhelviiraHolzer Medical Center – JacksonUrate [Mass/volume] in Serum or PlasmaOrdered By: Price Crain on 46-31-5165Kllru [Mass/Vol]4.8 mg/dL4.4-7.6FChildren's Hospital for RehabilitationUrea nitrogen [Mass/volume] in Serum or PlasmaOrdered By: Price Crain on 06-23-2023 Urea nitrogen [Mass/Vol]17 mg/dL7-25[facility] – JacksonUrine protein/creatinine ratioOrdered By: Price Crain on 97-92-9934Zcpikow/Creatinine (U) [Ratio]2835 mg/g{Cre}0-200[facility] – JacksonVitamin D+Metabolites [Mass/volume] in Serum or PlasmaOrdered By: Price Crain on 94-85-5224Vtqqvhr D+Metabolites [Mass/Vol]51.0 ng/rP96-521XnmgpoeqdHolzer Medical Center – JacksonComment on above:VITAMIN D STATUS 25(OH)VITAMIN D RANGE (ng/mL) Deficient <20 Insufficient 20 to <44Hkfpnlyviv29 to 100Reference: Dieudonne ABEL,Brendon GUERRA, Estrella CARTER, et al. Evaluation,treatment, and prevention of vitamin D deficiency; an Endocrine Society clinical practice guideline. JCEM. 2010; 96(7):1911-30.Physician Orderon 33-68-0008Zpvrqsqvc Order [id number]#1.00TIFACMC Healthcare SystemRAD - MISCon 00-68-0476ZQA - MISC [id number]#1.00UC HealthConsultation Noteon 11-41-9880Ogqxceuvoyww Note [id number]#1.00[facility] Reportson 73-09-7206Qda Reports [id number]#1.00UC HealthOperative Reporton 85-23-4625Vanrhywli Report [id number]#1.00[facility] Reportson 05-20-4934Zeo Reports [id number]#1.00[facility] [id number]#1.00UC HealthFormson 35-55-8363Zaimh [id number]#1.00[facility] Reportson 48-54-3560Qkz Reports [id number]#1.00[facility] [id number]#1.00TIFFNormalUniversity Hospitals TriPoint [facility] [id number]#1.00TIFF NormalUniversity Hospitals Tri[facility] Reportson 09-18-9323Npp Reports [id number]#1.00TIFFNoACMC Healthcare System Urineon 92-27-4253Gfymupoy identified Cx Nom (U)Microbiology PROCEDURE: Urine Culture [R1] SOURCE: U Random BODY SITE: COLLECTED DATE/TIME: 05/28/2023 15:26 EDT RECEIVED DATE/TIME: 05/28/2023 20:31 EDT START DATE/TIME: 05/28/2023 20:31 EDT FREE TEXT SOURCE: Diego RICKS, Orquidea Issa MD, Orquidea Taylor FINAL REPORTS Final Report [] Verified Date/Time: 05/30/2023 09:44 EDT >100,000 cfu/ml Enterobacter cloacae SUSCEPTIBILITY RESULTS LEGEND: S=Susceptible, N/R=Not Reported, Blank=Data not available, [...] Locations R1: This test was performed at: [facility], [address] [place] [address], [address] [place] [address], BwxscoPxvsskEast Liverpool City HospitalComment on above:Performed By: #### [id number] ####[place], [place] [address]Consultation Noteon 39-25-2939Finhkzxwtcmb Note [id number]#1.00TIFFEast Liverpool City HospitalReminderssm health care 19-64-2702Wzebarqfh From: Rupa Mckeon MA To: Diego RICKS, Orquidea Taylor; Sent: 05/28/2023 15:45:43 EDT Show up: 05/28/2023 15:45:00 EDT Subject: C&S Reminder/Recall Follow up to look at C&S before his procedure on 06/11/23[facility] HospitalRAD - MISCon 96-75-7567RAB - MIS [id number]#1.00TIFACMC Healthcare SystemLab Reportson 13-30-9792Czi Reports [id number]#1.00TIFACMC Healthcare SystemRAD - MISCon 47-34-7171SOM - MISC [id number]#1.00UC HealthAlanine aminotransferase [Enzymatic activity/volume] in Serum or Plasma Ordered By: Brook Huddleston on 47-59-4900BGA [Catalytic activity/Vol]17 U/L7-52 [facility] JacksonAlbumin [Mass/volume] in Serum or PlasmaOrdered By: Brook Huddleston on 56-97-3264Pehbfwm [Mass/Vol]3.6 g/dL2.9-4.4FChildren's Hospital for RehabilitationAlbumin [Mass/volume] in Serum or Plasma by Bromocresol green (BCG) dye binding methoOrdered By: Brook Huddleston on 69-62-4084Uyywqnn BCG dye [Mass/Vol]4.0 g/dL3.5-5.7FChildren's Hospital for RehabilitationAlbumin/Protein.total in 24 hour Urine by ElectrophoresisOrdered By: Brook Huddleston on 77-32-1746Mqjbpwm Elph (24H U) [Mass fraction]35.4 %.[facility] – JacksonAlkaline phosphatase [Enzymatic activity/volume] in Serum or PlasmaOrdered By: Brook Huddleston on 47-52-1645UAQ [Catalytic activity/Vol]99 U/F38-309SuqyeoazoHolzer Medical Center – JacksonAspartate aminotransferase [Enzymatic activity/volume] in Serum or Plasma Ordered By: Brook Huddleston on 46-28-2251UQE [Catalytic activity/Vol]15 U/L13-39 [facility] – JacksonBasophils Auto (Bld) [#/Vol]Ordered By: Brook Huddleston on 32-27-4602Gksgcmjcw (Bld) [#/Vol]0.0 10*3/uL0.0-0.2FChildren's Hospital for RehabilitationBasophils/100 WBC Auto (Bld)Ordered By: Brook Huddleston on 05-19-2023 Basophils/100 WBC (Bld)0.6 %.[facility] – JacksonBilirubin.total [Mass/volume] in Serum or PlasmaOrdered By: Brook Huddleston on 75-46-2460Umamkjxuh [Mass/Vol]0.3 mg/dL0.3-1.0[facility] – JacksonCalcium [Mass/volume] in Serum or PlasmaOrdered By: Brook Huddleston on 00-66-9231Tyqbfam [Mass/Vol]9.1 mg/dL8.6-10.3FChildren's Hospital for RehabilitationCarbon dioxide, total [Moles/volume] in Serum or PlasmaOrdered By: Brook Huddleston on 18-05-3287UP6 [Moles/Vol]25.3 mmol/L21.0-31.0[facility] – JacksonChloride [Moles/volume] in Serum or PlasmaOrdered By: Brook Huddleston on 34-09-6703Mliastzt [Moles/Vol]108 mmol/V96-437AlpsbjpghHolzer Medical Center – JacksonCreatinine [Mass/volume] in Serum or PlasmaOrdered By: Brook Huddleston on 75-95-8026Vpesaphjyw [Mass/Vol]1.70 mg/dL0.70-1.30[facility] – JacksonEosinophils Auto (Bld) [#/Vol]Ordered By: Brook Huddleston on 23-64-6965Uctfljkghky (Bld) [#/Vol]0.4 10*3/uL0.0-0.45[facility] – JacksonEosinophils/100 WBC Auto (Bld) Ordered By: Brook Huddleston on 03-06-0504Tqwotfsasem/100 WBC (Bld)7.0 %.[facility] – JacksonErythrocyte distribution width Auto (RBC) [Ratio]Ordered By: Brook Huddleston on 91-45-4942Ttjbxrmldwa distribution width (RBC) [Ratio]16.4 % 12.0-14.8[facility] – JacksonGamma globulin/Protein.total in 24 hour Urine by ElectrophoresisOrdered By: Brook Huddleston on 17-77-1158Ihbbw globulin Elph (24H U) [Mass fraction]22.0 %.[facility] – JacksonGlobulin Calc (S) [Mass/Vol]Ordered By: Brook Huddleston on 28-62-1968Rqukmqyi (S) [Mass/Vol]2.5 g/dLHolzer Medical Center – JacksonGlucose [Mass/volume] in Serum or Plasma Ordered By: Brook Huddleston on 38-98-9130Xibqfyw [Mass/Vol]253 mg/uR87-657XmsnmxzbcHolzer Medical Center – JacksonComment on above:ADA recommended reference rangeRandom Glucose Reference Range is dependent on time and content of last meal. Glucose of more than 200 mg/dL in a nonstressed, ambulatory subject supports the diagnosisof Diabetes Mellitus.Hematocrit Auto (Bld) [Volume fraction]Ordered By: Brook Huddleston on 53-00-5724Ngautpvvtq (Bld) [Volume fraction]29.5 %38.8-50.0 [facility] – JacksonHemoglobin [Mass/volume] in BloodOrdered By: Brook Huddleston on 39-54-6510Vvxbggpkgi (Bld) [Mass/Vol]9.9 g/dL13.0-17.0[facility] – JacksonIgA [Mass/volume] in Serum or PlasmaOrdered By: Brook Huddleston on 49-24-1218HnX [Mass/Vol]143 mg/sA40-863UhigaytvfHolzer Medical Center – JacksonIgG [Mass/volume] in Serum or PlasmaOrdered By: Brook Huddleston on 54-15-7586FoZ [Mass/Vol]891 mg/yT468-0377EukpaffbvHolzer Medical Center – JacksonIgM [Mass/volume] in Serum or PlasmaOrdered By: Brook Huddleston on 86-45-1835MyE [Mass/Vol]52 mg/nC53-163 [facility] – JacksonComment on above:Performed at: [facility] [id number] Director: Melchor Agrawal PhD, Phone: [phone] for UrineOrdered By: Brook Huddleston on 05-19-2023 Interpretation Immunofixation (U) [Interp]Comment:.[facility] – JacksonComment on above:Presence of monoclonal protein is unclear at this time. Suggestrepeat in 3 to 6 months if clinically indicated.Performed at: [facility] [id number] Director: Melchor Agrawal PhD, Phone: [phone] light chains.kappa.free [Mass/volume] in SerumOrdered By: Brook Huddleston on 83-56-6126Kpltzshjrbpcfw light chains.kappa.free (S) [Mass/Vol]34.4 mg/L3.3-19.4FChildren's Hospital for RehabilitationImmunoglobulin light chains.kappa.free/Immunoglobulin light chains.lambda.free [MassOrdered By: Brook Huddleston on 48-62-7194Yjxhcimeidvskz light chains.kappa.free/Immunoglobulin light chains.lambda.free (S) [Mass ratio]1.43 0.26-1.65[facility] – JacksonComment on above:Performed at: [facility] [id number] Director: Melchor Agrawal PhD, Phone: [phone] light chains.lambda.free [Mass/volume] in Serum or PlasmaOrdered By: Brook Huddleston on 05-19-2023 Immunoglobulin light chains.lambda.free [Mass/Vol]24.1 mg/L5.7-26.3FChildren's Hospital for RehabilitationLactate dehydrogenase [Enzymatic activity/volume] in Serum or Plasma by Lactate to pyOrdered By: Brook Huddleston on 29-90-1491HNR Lactate to pyruvate reaction [Catalytic activity/Vol]154 U/F032-995ZrxyqgmjcHolzer Medical Center – JacksonLeukocytes [#/volume] corrected for nucleated erythrocytes in Blood by Automated counOrdered By: Brook Huddleston on 92-56-0327OVI corrected for nucl RBC Auto (Bld) [#/Vol]6.1 10*3/uL4.1-10.5FChildren's Hospital for Rehabilitation Lymphocytes Auto (Bld) [#/Vol]Ordered By: Brook Huddleston on 26-51-0563Ekpasbszomi (Bld) [#/Vol]1.1 10*3/uL1.00-4.8[facility] – JacksonLymphocytes/100 WBC Auto (Bld)Ordered By: Brook Huddleston on 01-80-9289Jjwabaknmmg/100 WBC (Bld)17.4 %.[facility] – JacksonMC Auto (RBC) [Entitic mass]Ordered By: Brook Huddleston on 14-87-0416UQA (RBC) [Entitic mass]36.3 pg27.5-35.2FChildren's Hospital for RehabilitationMCHC Auto (RBC) [Mass/Vol]Ordered By: Brook Huddleston on 42-83-6425RDLQ (RBC) [Mass/Vol]33.6 g/dL32.5-35.6FChildren's Hospital for RehabilitationMCV Auto (RBC) [Entitic vol]Ordered By: Brook Huddleston on 27-51-4321LZN (RBC) [Entitic vol] 107.8 fL83.5-101[facility] – JacksonMonocytes Auto (Bld) [#/Vol] Ordered By: Brook Huddleston on 25-83-4218Gpbjzafiv (Bld) [#/Vol]0.4 10*3/uL0.0-0.8 [facility] – JacksonMonocytes/100 WBC Auto (Bld)Ordered By: Brook Huddleston on 61-64-4315Injfuefcg/100 WBC (Bld)6.0 %.[facility] – JacksonNeutrophils Auto (Bld) [#/Vol]Ordered By: Brook Huddleston on 05-19-2023 Neutrophils (Bld) [#/Vol]4.2 10*3/uL1.8-7.7FChildren's Hospital for Rehabilitation Neutrophils/100 WBC Auto (Bld)Ordered By: Brook Huddleston on 50-17-9626Kmnyiophrpk/100 WBC (Bld)69.0 %.[facility] – JacksonNo Panel InformationOrdered By: Brook Huddleston on 07-53-3310Rgttuxxsx GFR (CKD-EPI)40.753 mL/MinHolzer Medical Center – JacksonPharmacy Creatinine Clearance (Chem44.34[facility] – JacksonProtein Electrophoresis M-SpikeNot observed g/dLNot ObservedHolzer Medical Center – JacksonProtein Electrophoresis NoteSee comment .[facility] – JacksonComment on above:Protein electrophoresis scan will follow via computer,mail, or camera supervisor delivery.Urine Random Prot Electrophor NoteSee comment.[facility] – JacksonComment on above:Protein electrophoresis scan will follow via computer,mail, or camera supervisor delivery. Nucleated erythrocytes [Presence] in Blood by Automated countOrdered By: Brook Huddleston on 16-09-2661Qnyksxjqx RBC Auto Ql (Bld)0.0 /100{WBC}0-0.5FChildren's Hospital for RehabilitationPlatelet mean volume Auto (Bld) [Entitic vol]Ordered By: Brook Huddleston on 86-04-4386Lodjfons mean volume (Bld) [Entitic vol]8.6 fL6.6-10.1 [facility] – JacksonPlatelets Auto (Bld) [#/Vol]Ordered By: Brook Huddleston on 11-99-4715Tzchftkbo (Bld) [#/Vol]160 10*3/oM920-795JgocypancHolzer Medical Center – JacksonPotassium [Moles/volume] in Serum or PlasmaOrdered By: Brook Huddleston on 02-42-5343Hbdwkgrvw [Moles/Vol]4.7 mmol/L3.5-5.1FChildren's Hospital for RehabilitationProtein [Mass/volume] in Serum or PlasmaOrdered By: Brook Huddleston on 65-83-0366Dihgxit [Mass/Vol]6.5 g/dL6.0-8.5FChildren's Hospital for Rehabilitation Protein [Mass/volume] in UrineOrdered By: Brook Huddleston on 50-37-6920Mrmzjos (U) [Mass/Vol]94.6 mg/dLNot Estab.[facility] Protein.monoclonal/Protein.total in 24 hour Urine by ElectrophoresisOrdered By: Brook Huddleston on 36-19-8088Gcamzsy.monoclonal Elph (24H U) [Mass fraction]Comment: % Not ObservedHolzer Medical Center – JacksonComment on above:UPE shows asymmetrical gamma.RBC Auto (Bld) [#/Vol]Ordered By: Brook Huddleston on 80-97-0187LUE (Bld) [#/Vol]2.73 10*6/uL3.90-5.60[facility] – JacksonRetail - Clinical Noteon 25-39-1693Vjczko - Clinical Note [id number]#1.00CD:127NoRegency Hospital Cleveland Westerum globulin measurement (mass/volume)Ordered By: Brook Huddleston on 81-44-0235Tijzfagw (S) [Mass/Vol]2.9 g/dL2.2-3.9[facility]edo Hospitalerum or plasma albumin/globulin mass ratioOrdered By: Brook Huddleston on 01-95-7137Gwacdpz/Globulin [Mass ratio]1.6 {ratio}[facility] – JacksonAlbumin/Globulin [Mass ratio]1.2 {ratio}0.7-1.7FOhio State Harding Hospitalerum or plasma alpha 1 globulin measurement by electrophoresis (mass/volume)Ordered By: Brook Huddleston on 00-05-6109Jmugx 1 globulin Elph [Mass/Vol] 0.3 g/dL0.0-0.4FOhio State Harding Hospitalerum or plasma alpha 2 globulin measurement by electrophoresis (mass/volume)Ordered By: Brook Huddleston on 05-19-2023 Alpha 2 globulin Elph [Mass/Vol]0.9 g/dL0.4-1.0[facility] Serum or plasma anion gap determinationOrdered By: Brook Huddleston on 12-63-8083Sczsh gap [Moles/Vol]10.4 mmol/L6.0-15.0[facility] Hospitalerum or plasma beta globulin measurement by electrophoresis (mass/volume)Ordered By: Brook Huddleston on 88-29-6562Hwct globulin Elph [Mass/Vol]0.9 g/dL0.7-1.3FOhio State Harding Hospitalerum or plasma gamma globulin measurement by electrophoresis (mass/volume)Ordered By: Brook Huddleston on 49-06-5151Kujax globulin Elph [Mass/Vol]0.8 g/dL0.4-1.8[facility]edo Hospitalodium [Moles/volume] in Serum or PlasmaOrdered By: Brook Huddleston on 56-11-6095Reuirk [Moles/Vol]139 mmol/T489-883TjcmkzwdxHolzer Medical Center – JacksonUrea nitrogen [Mass/volume] in Serum or PlasmaOrdered By: Brook Huddleston on 93-67-4804Thzi nitrogen [Mass/Vol]24 mg/dL7-25[facility] – JacksonUrine alpha 1 globulin/total protein by electrophoresisOrdered By: Brook Huddleston on 05-19-2023 Alpha 1 globulin Elph (U) [Mass fraction]5.0 %.[facility] Urine alpha 2 globulin/total protein ratio by electrophoresisOrdered By: Brook Huddleston on 50-94-6006Crbku 2 globulin Elph (U) [Mass fraction]16.8 %.[facility] – JacksonUrine beta globulin measurement by electrophoresis (mass/volume)Ordered By: Brook Huddleston on 60-22-6040Skzz globulin Elph (U) [Mass/Vol]20.7 %.[facility] – JacksonWBC Auto (Bld) [#/Vol]Ordered By: Brook Huddleston on 90-78-4326CZQ (Bld) [#/Vol]6.1 10*3/uL4.1-10.5FChildren's Hospital for RehabilitationConsultation Noteon 41-29-0770Oungsrrrhcug Note [id number]#1.00CD:127[facility] HospitalLab Reportson 93-66-9456Qfw Reports [id number]#1.00CD:[address] [place], [place] [address]Lab [id number]#1.00CD:[address] [place], [place] [address]Operative Reporton 30-67-5594Vbqjpnior Report [id number]#1.00CD:[address] [place], [place] [address]Ambulatory Visit Summaryon 20-62-9008Fahbxsxigm Visit Summary PATSY MILLS :1945 Visit Date:05/15/2023 [...] Chew Tab) atorvastatin (atorvastatin 20 mg Tab) bifidobacterium-lactobacillus (Probiotic + Colostrum) cholecalciferol (Vitamin D3 2000 [...] ESWL and SPT change Where: [address], [place] [phone] Medications What How Much When Instructions Unchanged [...] prescribing physician if questions or concerns Unchanged bifidobacterium-lactobacillus (Probiotic + Colostrum) By Mouth Every day [...] tract infection) UTI symptoms Weak urine stream [facility] HospitalPatient Educationon 05-15-2023 Patient EducationObstetrics and Gynecology Overactive Bladder, Adult Overactive bladder [...] as stroke, dementia, Parkinson's disease, or multiple sclerosis(MS). ? Eat or drink alcohol, spicy food, [...] health care provider. General instructions ? Take rdxz-gwa-zerckfv and prescription medicines only as told by [...] care provider monitor yo (more content not included)...[facility] HospitalUrology Office/Clinic Noteon 06-59-3912Gsymcfk Office/Clinic NoteChief Complaint Pt is here for second SPT change HPI Staff Patys is a 78 y.o. male here for [...] change. Dysuria: denies Incomplete bladder emptying: Has Gunn Hematuria: denies Leaking: denies History of Present Illness Tests reviewed: External records including operative notes, BMP levels. I have reviewed the previous health record information and history for this patient from Dr. Issa and external providers I have reviewed and [...] change. The SP tube 16 fr 2-way gunn catheter has been changed today in the office without difficulty, and the tube irrigated to ensure proper placement. 10cc in balloon. Gunn catheter is placed to leg bag drainage. [...] - BUN 25. Crea 1.54. eGFR 44. (gunn in place) Cr up to 2 without gunn 12/08/22 - Cr 1.78. eGFR 37. BUN 30. K 5.0. (with gunn) 12/17/22 - Cr 1.84. eGFR 37. BUN 22. K 5.3. (with stent) 04/23/23 - Cr 1.80. eGFR 38. BUN 24. K 4.6 (with stent and SPT) 05/07/23 - Cr 1.85. eGFR 36.821. BUN 21. K 4.4 (with stent and SPT) ANA 09/23/22 - Mild-mod bilateral hydroureteronephrosis. No mass or stones. CT AP wo con 10/02/22 - Mild-mod bilateral hydronephrosis and hydroureter without obstructing stoneor mass. Non-obstructing calculi left kidney measuring 7 mm. Post Gunn Renal US 10/14/22 neg for hydro. CMP 10/14/22 BUN 25, crea 1.54, eGFR 44. (From Cr 2 prior). ANA 10/30/22 - Mild right pelvocaliectasis, neg for hydro. Pt refused gunn/CIC at that time. Renal US 11/17/22 [facility] [place] R-sided hydronephrosis and proximal hydroureter. Findings have progressed since prior study. Cr 1.87/ eGFR 36.6 Cath placed 11/21/2022 ANA 12/01/22 - Right hydronephrosis, grossly similar to the prior study despite gunn in place. S/P cysto/RG/ureteroscopy/stent placement/RT ureteral dilation and stent placement 12/10/22. ANA 12/17/22 - Interval resolution of the right sided hydronephrosis since the prior US study. Referred to [facility] urologist for right distal stricture, small capacity bladder with BL VUR 12/19/22. Dr. Jessica Feliciano evaluation (more content not included)...[facility] HospitalComment on above:Result Comment: Electronically Signed By: Diego RICKS, Orquidea Taylor\.br\Date and Time Signed: 05/15/23 16:38EDT\.br\Electronically Co- Signed By: Cornelia De Leon\.br\Date and Time Co-Signed: 05/15/23 16:17 EDTAlanine aminotransferase [Enzymatic activity/volume] in Serum or PlasmaOrdered By: Brook Huddleston on 13-56-5854QED [Catalytic activity/Vol]14 U/L7-52[facility] – JacksonAlbumin [Mass/volume] in Serum or Plasma by Bromocresol green (BCG) dye binding methoOrdered By: Brook Huddleston on 31-87-4578Cwfvixw BCG dye [Mass/Vol]3.9 g/dL3.5-5.7FChildren's Hospital for RehabilitationAlkaline phosphatase [Enzymatic activity/volume] in Serum or PlasmaOrdered By: Brook Huddleston on 53-07-3654DKK [Catalytic activity/Vol]77 U/F04-521PwbdxxmgdHolzer Medical Center – JacksonAspartate aminotransferase [Enzymatic activity/volume] in Serum or Plasma Ordered By: Brook Huddleston on 63-84-4146HIK [Catalytic activity/Vol]16 U/L13-39 [facility] – JacksonBasophils Auto (Bld) [#/Vol]Ordered By: Brook Huddleston on 50-80-7650Puufzedkb (Bld) [#/Vol]0.0 10*3/uL0.0-0.2FChildren's Hospital for RehabilitationBasophils/100 WBC Auto (Bld)Ordered By: Brook Huddleston on 02-19-2023 Basophils/100 WBC (Bld)0.3 %.[facility] – JacksonBilirubin.total [Mass/volume] in Serum or PlasmaOrdered By: Brook Huddleston on 10-50-6864Scgkbxbez [Mass/Vol]0.5 mg/dL0.3-1.0[facility] – JacksonCalcium [Mass/volume] in Serum or PlasmaOrdered By: Brook Huddleston on 67-57-3568Awvolla [Mass/Vol]8.7 mg/dL8.6-10.3FChildren's Hospital for RehabilitationCarbon dioxide, total [Moles/volume] in Serum or PlasmaOrdered By: Brook Huddleston on 58-74-8552NE0 [Moles/Vol]28.1 mmol/L21.0-31.0[facility] – JacksonChloride [Moles/volume] in Serum or PlasmaOrdered By: Brook Huddleston on [id number] [Moles/Vol]108 mmol/W90-443IpaucxwksHolzer Medical Center – JacksonCreatinine [Mass/volume] in Serum or PlasmaOrdered By: Brook Huddleston on [id number] [Mass/Vol]1.71 mg/dL0.70-1.30[facility] – JacksonEosinophils Auto (Bld) [#/Vol]Ordered By: Brook Huddleston on 20-34-3479Niunqvlzugu (Bld) [#/Vol]0.2 10*3/uL0.0-0.45[facility] JacksonEosinophils/100 WBC Auto (Bld) Ordered By: Brook Huddleston on 38-57-4853Rnzrazrhpcd/100 WBC (Bld)4.0 %.[facility] – JacksonErythrocyte distribution width Auto (RBC) [Ratio]Ordered By: Brook Huddleston on 69-34-1246Vvdzdktazay distribution width (RBC) [Ratio]16.9 % 12.0-14.8[facility] – JacksonGlobulin Calc (S) [Mass/Vol]Ordered By: Brook Huddleston on 55-90-1513Hpjzvvia (S) [Mass/Vol]2.0 g/dLHolzer Medical Center – JacksonGlucose [Mass/volume] in Serum or PlasmaOrdered By: Brook Huddleston on 10-98-6819Opsmbcr [Mass/Vol]99 mg/iM45-689CjyjanlfnHolzer Medical Center – Jackson Comment on above:ADA recommended reference rangeRandom Glucose Reference Range is dependent on time and content of last meal. Glucose of more than 200 mg/dL in a nonstressed, ambulatory subject supports the diagnosisof Diabetes Mellitus. Hematocrit Auto (Bld) [Volume fraction]Ordered By: Brook Huddleston on 02-19-2023 Hematocrit (Bld) [Volume fraction]27.7 %38.8-50.0[facility] – JacksonHemoglobin [Mass/volume] in BloodOrdered By: Brook Huddleston on 02-19-2023 Hemoglobin (Bld) [Mass/Vol]9.4 g/dL13.0-17.0[facility] [place] Leukocytes [#/volume] corrected for nucleated erythrocytes in Blood by Automated counOrdered By: Brook Huddleston on 66-17-0270VDM corrected for nucl RBC Auto (Bld) [#/Vol]5.7 10*3/uL4.1-10.5FChildren's Hospital for RehabilitationLymphocytes Auto (Bld) [#/Vol]Ordered By: Brook Huddleston on 52-76-7006Mrhbdtkpxaq (Bld) [#/Vol]1.0 10*3/uL1.00-4.8[facility] – JacksonLymphocytes/100 WBC Auto (Bld) Ordered By: Brook Huddleston on 90-29-1200Fzynoyptart/100 WBC (Bld)18.2 %.[facility] Auto (RBC) [Entitic mass]Ordered By: Brook Huddleston on 43-06-5633VWU (RBC) [Entitic mass]36.5 pg27.5-35.2FChildren's Hospital for RehabilitationMCHC Auto (RBC) [Mass/Vol]Ordered By: Brook Huddleston on 57-75-4403BQEU (RBC) [Mass/Vol]33.9 g/dL32.5-35.6FChildren's Hospital for RehabilitationMCV Auto (RBC) [Entitic vol]Ordered By: Brook Huddleston on 22-45-9020ZGR (RBC) [Entitic vol]107.8 fL 83.5-101[facility] – JacksonMonocytes Auto (Bld) [#/Vol]Ordered By: Brook Huddleston on 99-57-7288Rlmudcmmw (Bld) [#/Vol]0.3 10*3/uL0.0-0.8[facility] JacksonMonocytes/100 WBC Auto (Bld)Ordered By: Brook Huddleston on 64-12-0172Vvkhpnyrj/100 WBC (Bld)6.0 %.[facility] [place] Neutrophils Auto (Bld) [#/Vol]Ordered By: Brook Huddleston on 42-21-6466Aavyojxmbic (Bld) [#/Vol]4.1 10*3/uL1.8-7.7FChildren's Hospital for RehabilitationNeutrophils/100 WBC Auto (Bld)Ordered By: Brook Huddleston on 39-34-7011Ddiisvycajp/100 WBC (Bld)71.5 % .[facility] – JacksonNo Panel InformationOrdered By: Brook Huddleston on 19-34-1868Lmildrifh GFR (CKD-EPI)40.467 mL/MinHolzer Medical Center – Jackson [facility]acy Creatinine Clearance (Chem44.08[facility] [place] Nucleated erythrocytes [Presence] in Blood by Automated countOrdered By: Brook Huddleston on 25-24-8423Mgtihjwbg RBC Auto Ql (Bld)0.0 /100{WBC}0-0.5FChildren's Hospital for RehabilitationPlatelet mean volume Auto (Bld) [Entitic vol]Ordered By: Brook Huddleston on 91-03-7832Qbqsgvti mean volume (Bld) [Entitic vol]8.4 fL6.6-10.1 [facility] – JacksonPlatelets Auto (Bld) [#/Vol]Ordered By: Brook Huddleston on 54-78-5653Abqchlnlk (Bld) [#/Vol]118 10*3/eD444-763PelaitqvdHolzer Medical Center – JacksonPotassium [Moles/volume] in Serum or PlasmaOrdered By: Brook Huddleston on 54-95-7472Rbipzjikv [Moles/Vol]4.1 mmol/L3.5-5.1FChildren's Hospital for RehabilitationProtein [Mass/volume] in Serum or PlasmaOrdered By: Brook Huddleston on 74-40-1629Hnbogba [Mass/Vol]5.9 g/dL6.4-8.9[facility] – JacksonRBC Auto (Bld) [#/Vol]Ordered By: Brook Huddleston on 54-21-3276SNF (Bld) [#/Vol]2.57 10*6/uL3.90-5.60[facility] Hospitalerum or plasma albumin/globulin mass ratioOrdered By: Brook Huddleston on 42-19-2946Sfroxkr/Globulin [Mass ratio]2.0 {ratio}[facility] Hospitalerum or plasma anion gap determinationOrdered By: Brook Huddleston on 53-97-9830Ovcxu gap [Moles/Vol]8.0 mmol/L6.0-15.0[facility] Hospitalodium [Moles/volume] in Serum or PlasmaOrdered By: Brook Huddleston on 68-49-8513Nwlsur [Moles/Vol]140 mmol/S708-987 [facility] JacksonUrea nitrogen [Mass/volume] in Serum or Plasma Ordered By: Brook Huddleston on 29-22-1784Ovlz nitrogen [Mass/Vol]22 mg/dL7-25[facility] – JacksonWBC Auto (Bld) [#/Vol]Ordered By: Brook Huddleston on 32-88-2803LSV (Bld) [#/Vol]5.7 10*3/uL4.1-10.5FChildren's Hospital for Rehabilitation Patient Educationon 92-91-9690Jxxswoq EducationNephrology Dietary Guidelines to Help Prevent Kidney Stones [...] ? 8 oz (237 mL) of milk, hvwomgb-akogyivdnaqx-ckwuu milk, and calcium- fortifiedfruit juice. Calcium-fortified means [...] portion sizes. For most meat and fish, oneserving is about the size of the palm [...] Spinach (cooked), rhubarb, beets, sweet potatoes, and [place] chard. ? Peanuts. ? Potato chips, slovak fries, and baked potatoes with skin on. ? Nuts and nut products. ? Chocolate. ? If you regularly take a diuretic medicine, make sure to eat at least 1 or 2 servings of fruits orvegetables that are high in potassium each day. These include: ? Avocado. ? Banana. ? [place], prune, carrot, or tomato juice. ? Baked [...] with your dietitian to find an eating planand weight loss strategies that work best for [...] fish oil, or vitamin B6. ? Take wpyj-xxw-yyfqthq and prescription medicines only as told by your health care provider. Theseinclude supplements. What foods should I limit? Limit your in (more content not included)...[facility] Urology Office/Clinic Noteon 88-11-5178Zywmhnr Office/Clinic NoteChief Complaint pt here today for 1 month cath change HPI Staff 1 month Gunn change. Previous DX: asymptomatic microscopic hematuria, bilateral hydronephrosis, BPH w/ urinary obstruction, dysuria, family history of prostate cancer in father, glycosuria, history of kidney stones, hydroureter, incomplete bladder emptying, kidney stone, nocturia, OAB, prostate cancer, UTI, UTI symptoms, weak urine stream. S/P cysto/RG/ureteroscopy/stent placement/RT ureteral dilation done on 12/10/22, TURP done on 1/11/23, UroLift done on 05/05/22. Pt is currently taking Oxybutynin 10 ER qd. Dysuria: denies Hematuria: denies Leaking: yes some leaking Abdominal pain: denies Flank pain: denies History of Present Illness Tests reviewed: none I have reviewed the previous health record information and history for this patient from Dr. Issa. I have reviewed and verified the staff [...] of fever, chills, or flank pain. The Gunn was changed in the office today with no difficulties, and flushes appropriately to ensure proper placement. 16 fr coude cath was placed without difficulty. Gunn catheter is placed to leg bag drainage. The patient should increase fluid intake to keep the urine clear. He should go to the ER for significant bleeding, blocked catheter, or fever or chills. Assessment/Plan 1. Hydroureteronephrosis (N13.30: Unspecified hydronephrosis) 10/14/22 - BUN 25. Crea 1.54. eGFR 44. (gunn in place) Cr up to 2 without gunn 12/08/22 - Cr 1.78. eGFR 37. BUN 30. K 5.0. (with gunn) 12/17/22 - Cr 1.84. eGFR 37. BUN 22. K 5.3. (with stent) ANA 09/23/22 - Mild-mod bilateral hydroureteronephrosis. No mass or stones. CT AP wo con 10/02/22 - Mild-mod bilateral hydronephrosis and hydroureter without obstructing stoneor mass. Non-obstructing calculi left kidney measuring 7 mm. Post Gunn Renal US 10/14/22 neg for hydro. CMP 10/14/22 BUN 25, crea 1.54, eGFR 44. (From Cr 2 prior). ANA 10/30/22 - Mild right pelvocaliectasis, neg for hydro. Pt refused gunn/CIC at that time. Renal [place] 11/17/22 [facility] [place] R-sided hydronephrosis and proximal hydroureter. Findings have progressed since prior study. Cr 1.87/ eGFR 36.6 Cath placed 11/21/2022 ANA 12/01/22 - Right hydronephrosis, grossly similar to the prior study despite gunn in place. S/P cysto/RG/ureteroscopy/stent placement/RT ureteral dilation and stent placement 12/10/22. ANA 12/17/22 - Interval resolution of the right sided hydronephrosis since the prior US study. Taking Oxybutynin 10 ER qd. Stent not bothersome, oxybutynin working well. [place] improved, kidney draining, fxn preserved. Again thorough discussion regarding complex history of urge predominant BPH with LUTS status post UroLift and then TURP. No longer obstructed however patient's bladder is now significantly smaller capacity with bilateral reflux. Bilateral hydronephrosis and PVR 50% when Gunn not in place. Right hydroureteronephrosis persistent despite [...] tertiary center for further evaluation. Referred to [facility] urologist for right distal stricture, small [...] bladder (N31.9: Neuromuscula (more content not included)... [facility] HospitalComment on above:Result Comment: Electronically Signed By: Diego RICKS, Orquidea Taylor\.br\Date and Time Signed: 02/13/23 13:09EDTAlbumin [Mass/volume] in Serum or PlasmaOrdered By: Brook Huddleston on 44-02-3622Fentmwk [Mass/Vol]3.5 g/dL2.9-4.4FChildren's Hospital for RehabilitationAlbumin/Protein.total in 24 hour Urine by ElectrophoresisOrdered By: Brook Huddleston on 09-97-7631Imdzkpy Elph (24H U) [Mass fraction]50.4 %.[facility] – JacksonAutomated erythrocytes count in urine sediment (number/area)Ordered By: Price Crain on 67-98-7006HEL Auto (Urine sed) [#/Area]0-1 [HPF]0-4FChildren's Hospital for RehabilitationAutomated leukocytes count in urine sediment (number/area)Ordered By: Price Crain on 22-20-8445SZD Auto (Urine sed) [#/Area]Innumerable [HPF]0-4FChildren's Hospital for RehabilitationBilirubin Test strip Ql (U)Ordered By: Price Crain on 36-74-1356Jerqyrzkv Ql (U)NegativeNegativeHolzer Medical Center – JacksonColor Auto (U)Ordered By: Price Crain on 59-89-1805Pcnwf (U)YellowYellowHolzer Medical Center – JacksonCreatinine [Mass/volume] in UrineOrdered By: Price Crain on 32-22-8040Lwjcenjoym (U) [Mass/Vol]102.0 mg/dL14.0-26.0[facility] – JacksonFerritin [Mass/volume] in Serum or PlasmaOrdered By: Price Crain on 71-47-4442Bytdjovd [Mass/Vol]329.6 ng/mL23.9-336.2FChildren's Hospital for RehabilitationFolate [Mass/volume] in Serum or PlasmaOrdered By: Price Crain on 09-47-7224Eleaxi [Mass/Vol]47.0 ng/mL>5.9[facility] [place] Comment on above:Folate reference range: >5.9 ng/mlThe WHO technical consultation on folate and vitamin s82rbuvwawvxhts has determined that folate concentrations lessthan 4 ng/ml are considered deficient.Gamma globulin/Protein.total in 24 hour Urine by ElectrophoresisOrdered By: Brook Huddleston on 00-93-9446Pfnax globulin Elph (24H U) [Mass fraction]19.2 %.[facility] – JacksonIgA [Mass/volume] in Serum or PlasmaOrdered By: Brook Huddleston on 52-73-3691XqC [Mass/Vol]102 mg/kC59-495KkjnkkffgHolzer Medical Center – JacksonIgG [Mass/volume] in Serum or PlasmaOrdered By: Brook Huddleston on 18-37-5682GiK [Mass/Vol]720 mg/kJ886-4261UlrgclmkuHolzer Medical Center – JacksonIgM [Mass/volume] in Serum or PlasmaOrdered By: Brook Huddleston on 23-65-0671IrA [Mass/Vol]38 mg/qS39-637 [facility] – JacksonComment on above:Performed at: [facility] [address] [place] [id number] Director: Melchor Agrawal PhD, Phone: [phone] for UrineOrdered By: Brook Huddleston on 01-05-2023 Interpretation Immunofixation (U) [Interp]See comment.[facility] – JacksonComment on above:Immunofixation shows IgG monoclonal protein with lambdalight chain specificity.[place] appears asymmetrical.Performed at: [facility] [address] [place], [place] [id number] Director: Melchor velazco PhD, Phone: [phone] light chains.kappa.free [Mass/volume] in SerumOrdered By: Brook Huddleston on 31-24-6700Bnbmuzpateoami light chains.kappa.free (S) [Mass/Vol]20.3 mg/L3.3-19.4FChildren's Hospital for RehabilitationImmunoglobulin light chains.kappa.free/Immunoglobulin light chains.lambda.free [MassOrdered By: Brook Huddleston on 30-98-1502Xbdjiwmmasasfg light chains.kappa.free/Immunoglobulin light chains.lambda.free (S) [Mass ratio]1.45 0.26-1.65[facility] – JacksonComment on above:Performed at: - [facility] [id number] Director: Melchor Agrawal PhD, Phone: [phone] light chains.lambda.free [Mass/volume] in Serum or PlasmaOrdered By: Brook Huddleston on 01-05-2023 Immunoglobulin light chains.lambda.free [Mass/Vol]14.0 mg/L5.7-26.3FChildren's Hospital for RehabilitationIron [Mass/volume] in Serum or PlasmaOrdered By: Price Crain on 88-22-4571Aokt [Mass/Vol]104 ug/gC87-048DrdprnvdlHolzer Medical Center – JacksonIron binding capacity [Mass/volume] in Serum or PlasmaOrdered By: Price Crain on 66-96-4823Iwff binding capacity [Mass/Vol]248 ug/kE273-538FltepycskHolzer Medical Center – JacksonIron saturation [Mass Fraction] in Serum or PlasmaOrdered By: Price Crain on 20-25-6109Sniy saturation [Mass fraction]41.9 %20-50 [facility] – JacksonKetones Auto test strip (U) [Mass/Vol]Ordered By: Price Crain on 73-90-7600Ztaihuc (U) [Mass/Vol]NegativeNegativeHolzer Medical Center – JacksonLaboratory - UrinalysisOrdered By: Price Crain on 47-95-1790Asxhlze casts LM Ql (Urine sed)0-8 [LPF]0-8[facility] – JacksonLactate dehydrogenase [Enzymatic activity/volume] in Serum or Plasma by Lactate to pyOrdered By: Brook Huddleston on 84-88-6122XZB Lactate to pyruvate reaction [Catalytic activity/Vol]158 U/K211-644IgletcdttHolzer Medical Center – JacksonMagnesium [Mass/volume] in Serum or PlasmaOrdered By: Price Crain on 29-55-2166Dgdpducdc [Mass/Vol]1.9 mg/dL1.9-2.7FChildren's Hospital for RehabilitationNitrite Test strip Ql (U)Ordered By: Price Crain on 96-62-3415Rxeqeia Ql (U)NegativeNegative [facility] – JacksonNo Panel InformationOrdered By: Brook Huddleston on 26-73-6524Mukqa Random Prot Electrophor NoteSee comment.[facility] – JacksonComment on above:Protein electrophoresis scan will follow via computer,mail, or camera supervisor delivery.Performed at: [facility] [id number] Director: Melchor Agrawal PhD, Phone: [phone] Protein Electrophoresis M-SpikeNot observed g/dLNot ObservedHolzer Medical Center – JacksonProtein Electrophoresis NoteSee comment.[facility] – JacksonComment on above:Protein electrophoresis scan will follow via computer,mail, or camera supervisor delivery.Parathyrin.intact [Mass/volume] in Serum or PlasmaOrdered By: Price Crain on 21-55-2200Vscjjhreaz.intact [Mass/Vol]70.1 pg/aB14-76YtgvqokfwHolzer Medical Center – JacksonPhosphate [Mass/volume] in Serum or PlasmaOrdered By: Price Crain on 63-51-6678Dtpgazrus [Mass/Vol]2.9 mg/dL3.7-7.2 [facility] JacksonProtein Auto test strip (U) [Mass/Vol]Ordered By: Price Crain on 40-11-4329Kkenahn (U) [Mass/Vol]100 mg/dLNegativeHolzer Medical Center – JacksonProtein [Mass/volume] in Serum or PlasmaOrdered By: rBook Huddleston on 45-82-4948Wiwgjxx [Mass/Vol]6.2 g/dL6.0-8.5FChildren's Hospital for RehabilitationProtein [Mass/volume] in UrineOrdered By: Price Crain on 01-05-2023 Protein (U) [Mass/Vol]85 mg/dL0-9[facility] – JacksonProtein [Mass/volume] in UrineOrdered By: Brook Huddleston on 74-44-7263Cooyjvw (U) [Mass/Vol] 85.2 mg/dLNot Estab.[facility] Protein.monoclonal/Protein.total in 24 hour Urine by ElectrophoresisOrdered By: Brook Huddleston on 91-36-1669Huozmow.monoclonal Elph (24H U) [Mass fraction]Not observed %Not ObservedToledo Hospitalerum globulin measurement (mass/volume)Ordered By: Brook Huddleston on 54-27-9326Noamomcy (S) [Mass/Vol]2.7 g/dL2.2-3.9[facility]edo Hospitalerum or plasma albumin/globulin mass ratioOrdered By: Brook Huddleston on 43-30-0361Fbvfpnr/Globulin [Mass ratio]1.3 {ratio}0.7-1.7FOhio State Harding Hospitalerum or plasma alpha 1 globulin measurement by electrophoresis (mass/volume)Ordered By: Brook Huddleston on 13-28-3056Tzepe 1 globulin Elph [Mass/Vol]0.3 g/dL0.0-0.4FOhio State Harding Hospitalerum or plasma alpha 2 globulin measurement by electrophoresis (mass/volume)Ordered By: Brook Huddleston on 49-91-7671Uhfhh 2 globulin Elph [Mass/Vol]0.8 g/dL0.4-1.0[facility] Hospitalerum or plasma beta globulin measurement by electrophoresis (mass/volume)Ordered By: Brook Huddleston on 37-97-3036Ccal globulin Elph [Mass/Vol]0.9 g/dL0.7-1.3FOhio State Harding Hospitalerum or plasma gamma globulin measurement by electrophoresis (mass/volume)Ordered By: Brook Huddleston on 09-55-7092Gmnuc globulin Elph [Mass/Vol] 0.7 g/dL0.4-1.8[facility]edo Hospitalpecific gravity Auto test strip (U) [Rel density]Ordered By: Price Crain on 47-15-2446Vejexyxu gravity (U) [Rel density]1.0161.001-1.030T[facility]edo Hospitalquamous epithelial cells detection in urine sediment by light microscopyOrdered By: Price Crain on 28-94-2061Kznojklnna cells.squamous LM Ql (Urine sed)None seen [HPF] 0-2FChildren's Hospital for RehabilitationTransferrin [Mass/volume] in Serum or Plasma Ordered By: Price Crain on 16-78-5149Icskotbfrkm [Mass/Vol]177 mg/sA175-872 [facility] – JacksonUrate [Mass/volume] in Serum or PlasmaOrdered By: Price Crain on 11-06-9636Mtpmf [Mass/Vol]4.7 mg/dL2.4-7.6FChildren's Hospital for RehabilitationUrine alpha 1 globulin/total protein by electrophoresisOrdered By: Brook Huddleston on 41-38-7825Hgxen 1 globulin Elph (U) [Mass fraction]4.7 %. [facility] – JacksonUrine alpha 2 globulin/total protein ratio by electrophoresisOrdered By: Brook Huddleston on 95-38-5197Fdnzh 2 globulin Elph (U) [Mass fraction]11.1 %.[facility] – JacksonUrine bacteria detection by automated methodOrdered By: Price Crain on 41-80-3864Eihhauzk Auto Ql (U)4+ None SeenHolzer Medical Center – JacksonUrine beta globulin measurement by electrophoresis (mass/volume)Ordered By: Brook Huddleston on 83-08-8789Syms globulin Elph (U) [Mass/Vol]14.6 %.[facility] – JacksonUrine clarity by refractometry automatedOrdered By: Price Crain on 03-06-1128Ajzhnai Refractometry automated (U)TurbidCleKeenan Private HospitalUrine culture routineOrdered By: Price Crain on 25-64-7312Mhltfhwg identified Cx Nom (U)Strep agalactiae - (group b)[facility] – JacksonBacteria identified Cx Nom (U)Stenotrophomonas maltophiliaHolzer Medical Center – JacksonUrine glucose measurement by automated test strip (mass/volume)Ordered By: Price Crain on 65-50-4047Amybyco Auto test strip (U) [Mass/Vol]Normal mg/dL NormalHolzer Medical Center – JacksonUrine hemoglobin detection by automated test stripOrdered By: Price Crain on 89-10-5347Jczyjsbjyi Auto test strip Ql (U)3+NegativeHolzer Medical Center – JacksonUrine leukocyte esterase detection by automated test stripOrdered By: Price Crain on 99-78-4938Lkzlpxhsk esterase Auto test strip Ql (U)4+NegativeHolzer Medical Center – JacksonUrine protein/creatinine ratioOrdered By: Price Crain on 91-75-4053Wrkitvp/Creatinine (U) [Ratio]833 mg/g{Cre}0-200[facility] – JacksonUrobilinogen Auto test strip (U) [Mass/Vol]Ordered By: Price Crain on 12-89-8311Xpahnzzgineh (U) [Mass/Vol]Normal mg/dLNormalHolzer Medical Center – JacksonVitamin D+Metabolites [Mass/volume] in Serum or PlasmaOrdered By: Price Crain on 23-90-0643Cnktzqg D+Metabolites [Mass/Vol]40.8 ng/jV94-125UcpltkycjHolzer Medical Center – JacksonComment on above:VITAMIN D STATUS 25(OH)VITAMIN D RANGE (ng/mL) Deficient <20 Insufficient 20 to <83Qrrxkemoxi27 to 100Reference: Dieudonne MF,Brendon GUERRA, Estrella CARTER, et al. Evaluation,treatment, and prevention of vitamin D deficiency; an Endocrine Society clinical practice guideline. JCEM. 2010; 96(7):1911-30.Yeast detection in urine sediment by light microscopy Ordered By: Price Crain on 47-99-4176Atrqp LM Ql (Urine sed)None seen [HPF]None SeenHolzer Medical Center – JacksonpH Auto test strip (U)Ordered By: Price Crain on 19-07-0630zH (U)6.0 [pH]5.0-9.0[facility] [place] Calcium [Mass/volume] in Serum or PlasmaOrdered By: Orquidea Issa on 12-17-2022 Calcium [Mass/Vol]8.7 mg/dL8.6-10.3FChildren's Hospital for RehabilitationCarbon dioxide, total [Moles/volume] in Serum or PlasmaOrdered By: Orquidea Issa on 02-69-8599CV3 [Moles/Vol]21.7 mmol/L21.0-31.0[facility] [place] Chloride [Moles/volume] in Serum or PlasmaOrdered By: Orquidea Issa on 12-17-2022 Chloride [Moles/Vol]107 mmol/I07-113AjldysttuHolzer Medical Center – JacksonCreatinine [Mass/volume] in Serum or PlasmaOrdered By: Orquidea Issa on 10-33-2166Jzlvhwgvxn [Mass/Vol]1.84 mg/dL0.70-1.30[facility] – JacksonGlucose [Mass/volume] in Serum or PlasmaOrdered By: Orquidea Issa on 56-00-6891Mzjpmbe [Mass/Vol]194 mg/yR16-281CggavvgclHolzer Medical Center – JacksonComment on above:ADA recommended reference rangeRandom Glucose Reference Range is dependent on time and content of last meal. Glucose of more than 200 mg/dL in a nonstressed, ambulatory subject supports the diagnosisof Diabetes Mellitus.No Panel InformationOrdered By: Orquidea Issa on 36-49-2267Ozpzdwxzn GFR (CKD-EPI)37.293 mL/MinHolzer Medical Center – JacksonPharmacy Creatinine Clearance (ChemN/A [facility] – JacksonPotassium [Moles/volume] in Serum or Plasma Ordered By: Orquidea Issa on 78-68-7283Spvikxbbp [Moles/Vol]5.3 mmol/L3.5-5.1 [facility] Hospitalerum or plasma anion gap determinationOrdered By: Orquidea Issa on 58-29-0035Yxbzp gap [Moles/Vol]12.6 mmol/L6.0-15.0Toledo Hospitalodium [Moles/volume] in Serum or PlasmaOrdered By: Orquidea Issa on 85-01-1672Sbzuly [Moles/Vol]136 mmol/A129-257XimvawndqHolzer Medical Center – JacksonUrea nitrogen [Mass/volume] in Serum or PlasmaOrdered By: Orquidea Issa on 75-61-2775Iyyx nitrogen [Mass/Vol]22 mg/dL7-25[facility] [place] Alanine aminotransferase [Enzymatic activity/volume] in Serum or PlasmaOrdered By: Brook Huddleston on 11-52-9928NTW [Catalytic activity/Vol]15 U/L7-52[facility] – JacksonAlbumin [Mass/volume] in Serum or Plasma by Bromocresol green (BCG) dye binding methoOrdered By: Brook Huddleston on 91-96-4951Wexnzyy BCG dye [Mass/Vol]3.8 g/dL3.5-5.7FChildren's Hospital for RehabilitationAlkaline phosphatase [Enzymatic activity/volume] in Serum or PlasmaOrdered By: Brook Huddleston on 06-50-7084MUW [Catalytic activity/Vol]91 U/W75-095IdhqoycghHolzer Medical Center – JacksonAnisocytosis LM Ql (Bld)Ordered By: Brook Huddleston on 85-25-1920Fvmpuywdtuak Ql (Bld)SlightHolzer Medical Center – JacksonAnisocytosis Ql (Bld)Anisocytosis [Presence] in Blood by Light microscopyHolzer Medical Center – Jackson Aspartate aminotransferase [Enzymatic activity/volume] in Serum or PlasmaOrdered By: Brook Huddleston on 89-17-0074ANN [Catalytic activity/Vol]12 U/U10-10AdaybfgabHolzer Medical Center – JacksonBasophils Auto (Bld) [#/Vol]Ordered By: Brook Huddleston on 81-12-7143Uacyoeqgn (Bld) [#/Vol]0.0 10*3/uL0.0-0.2FChildren's Hospital for RehabilitationBasophils/100 WBC Auto (Bld)Ordered By: Brook Huddleston on 12-11-2022 Basophils/100 WBC (Bld)0.2 %.[facility] – JacksonBilirubin.total [Mass/volume] in Serum or PlasmaOrdered By: Brook Huddleston on 00-90-5024Qrniaxgib [Mass/Vol]0.4 mg/dL0.3-1.0[facility] – JacksonCalcium [Mass/volume] in Serum or PlasmaOrdered By: Brook Huddleston on 05-34-1805Ksvtavq [Mass/Vol]8.4 mg/dL8.6-10.3FChildren's Hospital for RehabilitationCarbon dioxide, total [Moles/volume] in Serum or PlasmaOrdered By: Brook Huddleston on 60-99-3872WN5 [Moles/Vol]22.6 mmol/L21.0-31.0[facility] – JacksonChloride [Moles/volume] in Serum or PlasmaOrdered By: Brook Huddleston on 02-46-9507Seoiwzqg [Moles/Vol]100 mmol/N47-392UlhpqlvejHolzer Medical Center – JacksonCreatinine [Mass/volume] in Serum or PlasmaOrdered By: Brook Huddleston on 93-31-6755Yafwyhelfj [Mass/Vol]1.87 mg/dL0.70-1.30[facility] – JacksonEosinophils Auto (Bld) [#/Vol]Ordered By: Brook Huddleston on 20-59-2289Plhfchhuwoh (Bld) [#/Vol]0.0 10*3/uL0.0-0.45[facility] JacksonEosinophils/100 WBC Auto (Bld) Ordered By: Brook Huddleston on 81-92-0547Vjagjvsndwi/100 WBC (Bld)0.1 %.[facility] JacksonErythrocyte distribution width Auto (RBC) [Ratio]Ordered By: Brook Huddleston on 11-84-5072Mbwjbygudtb distribution width (RBC) [Ratio]16.0 % 12.0-14.8[facility] – JacksonGlobulin Calc (S) [Mass/Vol]Ordered By: Brook Huddleston on 80-64-7214Jjnibexq (S) [Mass/Vol]2.4 g/dLHolzer Medical Center – JacksonGlucose [Mass/volume] in Serum or PlasmaOrdered By: Brook Huddleston on 01-87-8665Ekebrdc [Mass/Vol]349 mg/tB30-341XemkmmwdvHolzer Medical Center – Jackson Comment on above:ADA recommended reference rangeRandom Glucose Reference Range is dependent on time and content of last meal. Glucose of more than 200 mg/dL in a nonstressed, ambulatory subject supports the diagnosisof Diabetes Mellitus. Hematocrit Auto (Bld) [Volume fraction]Ordered By: Brook Huddleston on 12-11-2022 Hematocrit (Bld) [Volume fraction]27.8 %38.8-50.0[facility] – JacksonHemoglobin [Mass/volume] in BloodOrdered By: Brook Huddleston on 12-11-2022 Hemoglobin (Bld) [Mass/Vol]9.3 g/dL13.0-17.0[facility] [place] Leukocytes [#/volume] corrected for nucleated erythrocytes in Blood by Automated counOrdered By: Brook Huddleston on 82-21-0777OHO corrected for nucl RBC Auto (Bld) [#/Vol]10.2 10*3/uL4.1-10.5FChildren's Hospital for RehabilitationLymphocytes Auto (Bld) [#/Vol]Ordered By: Brook Huddleston on 96-42-9890Jebwvqglvdq (Bld) [#/Vol]0.7 10*3/uL1.00-4.8[facility] – JacksonLymphocytes/100 WBC Auto (Bld) Ordered By: Brook Huddleston on 96-80-7358Gwskjssrmum/100 WBC (Bld)7.2 %.[facility] CenterH Auto (RBC) [Entitic mass]Ordered By: Brook Huddleston on 25-48-5289REX (RBC) [Entitic mass]38.0 pg27.5-35.2FChildren's Hospital for RehabilitationMCHC Auto (RBC) [Mass/Vol]Ordered By: Brook Huddleston on 79-85-9331FKCR (RBC) [Mass/Vol]33.6 g/dL32.5-35.6FChildren's Hospital for RehabilitationMCV Auto (RBC) [Entitic vol]Ordered By: Brook Huddleston on 57-20-4872UZL (RBC) [Entitic vol]113.0 fL 83.5-101[facility] – JacksonMacrocytes LM Ql (Bld)Ordered By: Brook Huddleston on 11-71-1056Pposfxqccx Ql (Bld)SlightHolzer Medical Center – Jackson Macrocytes Ql (Bld)Macrocytes [Presence] in Blood by Light microscopyHolzer Medical Center – JacksonMonocytes Auto (Bld) [#/Vol]Ordered By: Brook Huddleston on 31-02-1816Cxknuyyxh (Bld) [#/Vol]0.5 10*3/uL0.0-0.8[facility] JacksonMonocytes/100 WBC Auto (Bld)Ordered By: Brook Huddleston on 12-11-2022 Monocytes/100 WBC (Bld)5.2 %.[facility] – JacksonNeutrophils Auto (Bld) [#/Vol]Ordered By: Brook Huddleston on 54-05-1050Ckturdnjxob (Bld) [#/Vol]8.8 10*3/uL1.8-7.7FChildren's Hospital for RehabilitationNeutrophils/100 WBC Auto (Bld) Ordered By: Brook Huddleston on 55-80-3670Diasdwtdbol/100 WBC (Bld)87.3 %.[facility] – JacksonNo Panel InformationOrdered By: Brook Huddleston on 12-11-2022 Estimated GFR (CKD-EPI)36.576 mL/MinHolzer Medical Center – JacksonPharmacy Creatinine Clearance (Chem37.68[facility] – JacksonNucleated erythrocytes [Presence] in Blood by Automated countOrdered By: Brook Huddleston on 11-03-1208Iaewlicqx RBC Auto Ql (Bld)0.0 /100{WBC}0-0.5FChildren's Hospital for RehabilitationPlatelet adequacy [Presence] in Blood by Light microscopyOrdered By: Brook Huddleston on 47-89-7047Kszjugszu LM Ql (Bld)DecreasedLowOhioHealth Southeastern Medical CenterPlaterevere memorial hospital LM Ql (Bld)Platelet adequacy [Presence] in Blood by Light microscopyLowCleveland Clinic Lutheran Hospitallet mean volume Auto (Bld) [Entitic vol]Ordered By: Brook Huddleston on 79-41-4814Qrgsfpdf mean volume (Bld) [Entitic vol]9.8 fL6.6-10.1FChildren's Hospital for Rehabilitation Platelet morphology finding [Identifier] in BloodOrdered By: Brook Huddleston on 62-09-5939Osgiyara morphology finding Nom (Bld)NormalNoProMedica Fostoria Community HospitalPlatelet morphology finding Nom (Bld)Platelet morphology finding [Identifier] in BloodNoProMedica Fostoria Community HospitalPlaterevere memorial hospital Auto (Bld) [#/Vol]Ordered By: Brook Huddleston on 72-95-2975Elqcwzzts (Bld) [#/Vol]117 10*3/uL 150-450[facility] – JacksonPotassium [Moles/volume] in Serum or PlasmaOrdered By: Brook Huddleston on 39-78-8902Gegcyftvj [Moles/Vol]5.0 mmol/L3.5-5.1 [facility] JacksonProtein [Mass/volume] in Serum or PlasmaOrdered By: Brook Huddleston on 06-65-8831Epzolxb [Mass/Vol]6.2 g/dL6.4-8.9[facility] – JacksonRBC Auto (Bld) [#/Vol]Ordered By: Brook Huddleston on 54-85-9829FWJ (Bld) [#/Vol]2.46 10*6/uL3.90-5.60[facility] morphology Ordered By: Brook Huddleston on 78-55-1187YSR morphology finding Nom (Bld)N/AFChildren's Hospital for RehabilitationRB morphology finding Nom (Bld)RBC morphologyToledo Hospitalchistocytes [Presence] in Blood by Light microscopy Ordered By: Brook Huddleston on 51-20-1118Fthpgoaqluay LM Ql (Bld)SlightToledo Hospitalchistocytes LM Ql (Bld)Schistocytes [Presence] in Blood by Light microscopyToledo Hospitalerum or plasma albumin/globulin mass ratioOrdered By: Brook Huddleston on 57-21-1373Qvkslge/Globulin [Mass ratio]1.6 {ratio}[facility]edo Hospitalerum or plasma anion gap determinationOrdered By: Brook Huddleston on 29-89-2458Byfue gap [Moles/Vol]13.4 mmol/L6.0-15.0Toledo Hospitalodium [Moles/volume] in Serum or PlasmaOrdered By: Brook Huddleston on 85-63-6288Fenrwo [Moles/Vol]131 mmol/J962-655 [facility] – JacksonUrea nitrogen [Mass/volume] in Serum or Plasma Ordered By: Brook Huddleston on 44-96-8835Dtjd nitrogen [Mass/Vol]30 mg/dL7-25[facility] – JacksonWBC Auto (Bld) [#/Vol]Ordered By: Brook Huddleston on 90-71-9502JBC (Bld) [#/Vol]10.2 10*3/uL4.1-10.5FChildren's Hospital for Rehabilitation POINT OF CARE GLUCOSEon 48-11-7736Tvjorjo [Mass/Vol]284 mg/dLCritically high 74-106The [facility] HospitalComment on above:Performed By: #### PTT, PT #### [facility] [address] [address] [address] Lydia MerrittBRECKINRIDGE MEMORIAL [facility] AUTO DIFFon 75-41-8773SSFF #0.0 103/ulNormal0.0-0.1The [facility] County HospitalComment on above:Performed By: #### PTT, PT #### [facility] [address] [address] [address] Lydia MerrittBasophils/100 WBC (Bld)0.1 %Critically low0.2-2.0The [facility] HospitalComment on above:Performed By: #### PTT, PT #### [facility] [address] [place] [address] Dr. Lydia Mars #0.2 103/ulNormal0.0-0.7The [facility] HospitalComment on above: Performed By: #### PTT, PT #### [facility] [address] [place] [address] Dr. Lydia Moyaosinophils/100 WBC (Bld)1.6 %Normal0.9-7.0[facility] Comment on above:Performed By: #### PTT, PT #### [facility] [address] [place] [address] Dr. Lydia Moyarythrocyte distribution width (RBC) [Ratio]15.2 %Critically high 11.0-15.0The [facility] HospitalComment on above:Performed By: #### PTT, PT #### [facility] [address] [place] [address] Dr. Lydia MerrittHematocrit (Bld) [Volume fraction]30.6 %Critically low42.0-54.0 The [facility] HospitalComment on above:Performed By: #### PTT, PT #### [facility] [address] [place] [address] Dr. Lydia MerrittHemoglobin (Bld) [Mass/Vol]10.2 g/dLCritically low14.0-18.0[facility] FoundationComment on above:Performed By: #### PTT, PT #### [facility] [address] [place] [address] Dr. Lydia Shafer #0.05 10e3/ulCritically high0.00-0.03The [facility] Comment on above:Performed By: #### PTT, PT #### [facility] [address] [place] [address] Dr. Lydia Shafer %0.5 %Normal0.0-0.5The [facility] HospitalComment on above: Performed By: #### PTT, PT #### [facility] [address] [address] [address] Lydia Roa #0.8 103/ulCritically low1.2-3.8The [facility] Comment on above:Performed By: #### PTT, PT #### [facility] [address] [address] [address] Lydia Queenmphocytes/100 WBC (Bld)8.2 %Critically low20.5-60.0The [facility] HospitalComment on above:Performed By: #### PTT, PT #### [facility] [address] [address] [address] Lydia RomeroUAL DIFF REQNONormalThe [facility] HospitalComment on above: Performed By: #### PTT, PT #### [facility] [address] [place] [address] Dr. Lydia Short (RBC) [Entitic mass]37.9 pgCritically high25.9-34.0The [facility] HospitalComment on above:Performed By: #### PTT, PT #### [facility] [address] [place] [address] Dr. Lydia Short (RBC) [Mass/Vol]33.3 g/mBUladlq03.9-35.2The [facility] HospitalComment on above:Performed By: #### PTT, PT #### [facility] [address] [place] [address] Dr. Lydia Short (RBC) [Entitic vol]113.8 fLCritically high80.0-94.0The [facility] HospitalComment on above:Result Comment: 2+ macrocytosisPerformed By: #### PTT, PT #### [facility] [address] [place] [address] Dr. Lydia Dalton #0.5 103/ulNormal0.3-0.8The [facility] HospitalComment on above:Performed By: #### PTT, PT #### [facility] [address] [place] [address] Dr. Lydia Luqueocytes/100 WBC (Bld)5.4 %Normal1.7-12.0The [facility] Comment on above:Performed By: #### PTT, PT #### [facility] [address] [place] [address] Dr. Lydia Sanz #7.9 103/ulCritically high1.4-6.5The [facility] Comment on above:Performed By: #### PTT, PT #### [facility] [address] [place] [address] Dr. Lydia Laurenutrophils/100 WBC (Bld)84.2 %Critically high43.0-75.0The [facility] HospitalComment on above:Performed By: #### PTT, PT #### [facility] [address] [place] [address] Dr. Lydia Mac mean volume (Bld) [Entitic vol]10.9 fLNormal9.5-13.5The [facility] HospitalComment on above:Performed By: #### PTT, PT #### [facility] [address] [place] [address] Dr. Lydia MerrittPLT117 103/ulCritically blo629-503Etl [facility] HospitalComment on above:Performed By: #### PTT, PT #### [facility] [address] [place] [address] Dr. Lydia MerrittRBC2.69 106/ulCritically low4.70-6.10The [facility] HospitalComment on above:Performed By: #### PTT, PT #### [facility] [address] [place] [address] Dr. Lydia MerrittWBC9.4 103/ulNormal4.0-11.0The [facility] HospitalComment on above: Performed By: #### PTT, PT #### [facility] [address] [place] [address] Dr. Lydia Santiago CHEM 8 (BAS METB)on 73-51-9561Azbua gap [Moles/Vol]14.6 mmol/LNormalThe [facility] County HospitalComment on above:Performed By: #### BMP #### [facility] [address] [place], [place] [id number] Dr. Lydia MerrittCalcium [Mass/Vol]9.1 mg/dLNormal8.5-10.1The [facility] Comment on above:Performed By: #### BMP #### [facility] [address] [place] [address] Dr. Lydia MerrittChloride [Moles/Vol]101 mmol/CVqsbmx95-712Htd [facility] Comment on above:Performed By: #### BMP #### [facility] [address] [address] [address] Lydia MerrittCO2 [Moles/Vol]25.4 mmol/GVguicb77.0-32.0The [facility] Comment on above:Performed By: #### BMP #### [facility] [address] [place] [address] Dr. Lydia MerrittCreatinine [Mass/Vol]1.78 mg/dLCritically high0.70-1.30The [facility] HospitalComment on above:Performed By: #### BMP #### [facility] [address] [place] [address] Dr. Freeman ChangEGFR-AF KNYMIIKZ49 mL/min/1.00x5Fpvyyksrer low>=60The [facility] HospitalComment on above:Performed By: #### BMP #### [facility] [address] [place] [address] Dr. Lydia MoyaGFR-NON AF KDISTNYY42 mL/min/1.90s4Shulvdsrbf low>=60The [facility] HospitalComment on above:Performed By: #### BMP #### [facility] [address] [place] [address] Dr. Lydia MerrittGlucose [Mass/Vol]413 mg/dLCritically uelm40-563Sxz [facility] HospitalComment on above:Performed By: #### BMP #### [facility] [address] [address] [address] Lydia MerrittPotassium [Moles/Vol]5.0 mmol/LNormal3.5-5.1The [facility] Comment on above:Performed By: #### BMP #### [facility] [address] [place] [address] Dr. Lydia Tracydium [Moles/Vol]136 mmol/WEeflmc387-910EhmCleveland Clinic Foundation Comment on above:Performed By: #### BMP #### [facility] [address] [place] [address] Dr. Lydia Briggs nitrogen [Mass/Vol]30.0 mg/dLCritically high7.0-18.0The [facility] HospitalComment on above:Performed By: #### BMP #### [facility] [address] [place] [address] Dr. Lydia Briggs nitrogen/Creatinine [Mass ratio]16.9 mg/mgNoLima City HospitalComment on above:Performed By: #### BMP #### [facility] [address] [place] [address] Dr. Lydia Edmond 33-83-8562GXS Coag (PPP) [Relative time]0.95 {INR} NormalThe [facility] County HospitalComment on above:Performed By: #### PTT, PT #### [facility] [address] [place] [address] Dr. Lydia Mackenzie GUIDELINESSEE BELOWCommunity Memorial HospitalComment on above:Result Comment: DESIRED INR: 2.0 - 3.0 CONDITIONS NOT LISTED BELOW 2.5 - 3.5 FOR PROSTHETIC HEART VALVE REPLACEMENT 2.5 - 3.5 RECURRENT THROMBOSIS Performed By: #### PTT, PT #### [facility] [address] [place] [address] Dr. Lydia Atkinson Coag (PPP) [Time]10.1 sNormal9.0-11.6The [facility] Comment on above:Performed By: #### PTT, PT #### [facility] [address] [place] [address] Dr. Lydia Ott 27-61-3508bMDA Coag (Bld) [Time]22.6 xRmthdq84.3-36.2[facility] FoundationComment on above:Performed By: #### PTT, PT #### [facility] [address] [place] [address] Dr. Yilan ChangCalcium [Mass/volume] in Serum or PlasmaOrdered By: Orquidea Issa on 79-83-8210Eactpsg [Mass/Vol]8.8 mg/dL8.6-10.3FChildren's Hospital for Rehabilitation Carbon dioxide, total [Moles/volume] in Serum or PlasmaOrdered By: Orquidea Issa on 84-54-7762NN9 [Moles/Vol]23.9 mmol/L21.0-31.0[facility] Chloride [Moles/volume] in Serum or PlasmaOrdered By: Orquidea Issa on 12-01-2022 Chloride [Moles/Vol]104 mmol/G43-444WmbfbnfznHolzer Medical Center – JacksonCreatinine [Mass/volume] in Serum or PlasmaOrdered By: Orquidea Issa on 86-54-5574Chgixunmnm [Mass/Vol]1.77 mg/dL0.70-1.30[facility] – JacksonGlucose [Mass/volume] in Serum or PlasmaOrdered By: Orquidea Issa on 98-43-6831Cndtaas [Mass/Vol]208 mg/eV22-194XmnhglebrHolzer Medical Center – JacksonComment on above:ADA recommended reference rangeRandom Glucose Reference Range is dependent on time and content of last meal. Glucose of more than 200 mg/dL in a nonstressed, ambulatory subject supports the diagnosisof Diabetes Mellitus.No Panel InformationOrdered By: Orquidea Issa on 85-45-0642Kunyklfdc GFR (CKD-EPI)39.069 mL/MinHolzer Medical Center – JacksonPharmacy Creatinine Clearance (ChemN/A [facility] – JacksonPotassium [Moles/volume] in Serum or Plasma Ordered By: Orquidea Issa on 50-33-8655Zijxslbmy [Moles/Vol]4.4 mmol/L3.5-5.1 [facility] Hospitalerum or plasma anion gap determinationOrdered By: Orquidea Issa on 16-10-0836Elrad gap [Moles/Vol]12.5 mmol/L6.0-15.0[facility]edo Hospitalodium [Moles/volume] in Serum or PlasmaOrdered By: Orquidea Issa on 44-67-4856Ojbsfs [Moles/Vol]136 mmol/M492-350OygrmelwzHolzer Medical Center – JacksonUrea nitrogen [Mass/volume] in Serum or PlasmaOrdered By: Orquidea Issa on 36-80-9406Yqbi nitrogen [Mass/Vol]40 mg/dL7-25[facility] Alanine aminotransferase [Enzymatic activity/volume] in Serum or PlasmaOrdered By: Brook Huddleston on 01-11-6891TPH [Catalytic activity/Vol]22 U/L7-52[facility] – JacksonAlbumin [Mass/volume] in Serum or Plasma by Bromocresol green (BCG) dye binding methoOrdered By: Brook Huddleston on 32-56-6118Utzgfce BCG dye [Mass/Vol]4.1 g/dL3.5-5.7FChildren's Hospital for RehabilitationAlkaline phosphatase [Enzymatic activity/volume] in Serum or PlasmaOrdered By: Brook Huddleston on 17-09-9368RQR [Catalytic activity/Vol]140 U/Q91-992QglhaxskfHolzer Medical Center – JacksonAnisocytosis LM Ql (Bld)Ordered By: Brook Huddleston on 23-74-6377Exvbyersookq Ql (Bld)ModerateHolzer Medical Center – JacksonAspartate aminotransferase [Enzymatic activity/volume] in Serum or PlasmaOrdered By: Brook Huddleston on 48-12-7376WHH [Catalytic activity/Vol]17 U/E27-81InaixzyjtHolzer Medical Center – JacksonBasophils Auto (Bld) [#/Vol]Ordered By: Brook Huddleston on 73-58-0840Gdjwqyxdd (Bld) [#/Vol]0.0 10*3/uL0.0-0.2FChildren's Hospital for RehabilitationBasophils/100 WBC Auto (Bld)Ordered By: Brook Huddleston on 91-07-0839Knmjmezzs/100 WBC (Bld)0.5 %. [facility] – JacksonBilirubin.total [Mass/volume] in Serum or PlasmaOrdered By: Brook Huddleston on 00-72-5748Xsypgjgvo [Mass/Vol]0.5 mg/dL0.3-1.0 [facility] JacksonCalcium [Mass/volume] in Serum or PlasmaOrdered By: Brook Huddleston on 90-76-1235Fswkcdy [Mass/Vol]8.8 mg/dL8.6-10.3FChildren's Hospital for RehabilitationCarbon dioxide, total [Moles/volume] in Serum or Plasma Ordered By: Brook Huddleston on 58-89-6461XI7 [Moles/Vol]22.7 mmol/L21.0-31.0[facility] – JacksonChloride [Moles/volume] in Serum or PlasmaOrdered By: Brook Huddleston on 38-68-3770Cgvxhuaf [Moles/Vol]105 mmol/A74-107YtxqaoazsHolzer Medical Center – JacksonCreatinine [Mass/volume] in Serum or PlasmaOrdered By: Brook Huddleston on 79-18-3686Qujvbqyxel [Mass/Vol]2.23 mg/dL0.70-1.30[facility] JacksonEosinophils Auto (Bld) [#/Vol]Ordered By: Brook Huddleston on 11-27-2022 Eosinophils (Bld) [#/Vol]0.2 10*3/uL0.0-0.45[facility] [place] Eosinophils/100 WBC Auto (Bld)Ordered By: Brook Huddleston on 93-74-1222Nzmaitizdcz/100 WBC (Bld)3.1 %.[facility] – JacksonErythrocyte distribution width Auto (RBC) [Ratio]Ordered By: Brook Huddleston on 56-96-8611Dawczqvvacp distribution width (RBC) [Ratio]16.3 %12.0-14.8[facility] – JacksonGlobulin Calc (S) [Mass/Vol]Ordered By: Brook Huddleston on 38-16-7241Zyvznpxg (S) [Mass/Vol]2.6 g/dLHolzer Medical Center – JacksonGlucose [Mass/volume] in Serum or Plasma Ordered By: Brook Huddleston on 25-99-4993Umojdqj [Mass/Vol]219 mg/iI88-232BwcxhdgusHolzer Medical Center – JacksonComment on above:ADA recommended reference rangeRandom Glucose Reference Range is dependent on time and content of last meal. Glucose of more than 200 mg/dL in a nonstressed, ambulatory subject supports the diagnosisof Diabetes Mellitus.Hematocrit Auto (Bld) [Volume fraction]Ordered By: Brook Huddleston on 52-79-9442Ouedmvwnnj (Bld) [Volume fraction]30.2 %38.8-50.0 [facility] – JacksonHemoglobin [Mass/volume] in BloodOrdered By: Brook Huddleston on 05-86-0293Ofqnziwikr (Bld) [Mass/Vol]10.2 g/dL13.0-17.0[facility] – JacksonLeukocytes [#/volume] corrected for nucleated erythrocytes in Blood by Automated counOrdered By: Brook Huddleston on 95-28-1095QFG corrected for nucl RBC Auto (Bld) [#/Vol]7.1 10*3/uL4.1-10.5FChildren's Hospital for RehabilitationLymphocytes Auto (Bld) [#/Vol]Ordered By: Brook Huddleston on 11-27-2022 Lymphocytes (Bld) [#/Vol]0.9 10*3/uL1.00-4.8[facility] Lymphocytes/100 WBC Auto (Bld)Ordered By: Brook Huddleston on 53-28-8299Ifzmcoltcmh/100 WBC (Bld)12.7 %.[facility] – JacksonMCH Auto (RBC) [Entitic mass] Ordered By: Brook Huddleston on 77-33-0286PYI (RBC) [Entitic mass]38.1 pg27.5-35.2 [facility] – JacksonMCHC Auto (RBC) [Mass/Vol]Ordered By: Brook Huddleston on 13-59-5929TOYJ (RBC) [Mass/Vol]33.8 g/dL32.5-35.6FChildren's Hospital for RehabilitationMCV Auto (RBC) [Entitic vol]Ordered By: Brook Huddleston on 64-56-8535GSW (RBC) [Entitic vol]112.7 fL83.5-101[facility] – JacksonMacrocytes LM Ql (Bld)Ordered By: Brook Huddleston on 44-51-1365Rtbpvqxwoh Ql (Bld)SlightHolzer Medical Center – JacksonMonocytes Auto (Bld) [#/Vol]Ordered By: Brook Huddleston on 47-23-4366Otrpbzgsc (Bld) [#/Vol]0.6 10*3/uL0.0-0.8[facility] JacksonMonocytes/100 WBC Auto (Bld)Ordered By: Brook Huddleston on 11-27-2022 Monocytes/100 WBC (Bld)7.7 %.[facility] – JacksonNeutrophils Auto (Bld) [#/Vol]Ordered By: Brook Huddleston on 78-50-4238Jtxvnzrsltu (Bld) [#/Vol]5.4 10*3/uL1.8-7.7FChildren's Hospital for RehabilitationNeutrophils/100 WBC Auto (Bld) Ordered By: Brook Huddleston on 32-22-0854Nyqiiywixpk/100 WBC (Bld)76.0 %.[facility] – JacksonNo Panel InformationOrdered By: Brook Huddleston on 11-27-2022 Estimated GFR (CKD-EPI)29.610 mL/MinHolzer Medical Center – JacksonPharmacy Creatinine Clearance (Chem31.59[facility] – JacksonNucleated erythrocytes [Presence] in Blood by Automated countOrdered By: Brook Huddleston on 10-37-1028Qjxpxyaqm RBC Auto Ql (Bld)0.1 /100{WBC}0-0.5FChildren's Hospital for RehabilitationOvalocyte detectionOrdered By: Brook Huddleston on 60-37-5035Qwvjoyajrm LM Ql (Bld)SlightHolzer Medical Center – JacksonOvalocytes LM Ql (Bld) Ovalocyte detectionHolzer Medical Center – JacksonPlatelet adequacy [Presence] in Blood by Light microscopyOrdered By: Brook Huddleston on 69-18-2764Wedbppxoa LM Ql (Bld)DecreasedNormMedina HospitalPlatelet mean volume Auto (Bld) [Entitic vol]Ordered By: Brook Huddleston on 61-11-2647Wyvdsjnr mean volume (Bld) [Entitic vol]9.6 fL6.6-10.1FChildren's Hospital for RehabilitationPlatelet morphology finding [Identifier] in BloodOrdered By: Brook Huddleston on 74-91-9748Fkgrxmfw morphology finding Nom (Bld)NormalNormMedina Hospital Platelets Auto (Bld) [#/Vol]Ordered By: Brook Huddleston on 27-75-9536Mnptimzxa (Bld) [#/Vol]129 10*3/sJ382-224FaormtaxjHolzer Medical Center – JacksonPoikilocytosis [Presence] in Blood by Light microscopyOrdered By: Brook Huddleston on 11-27-2022 Poikilocytosis LM Ql (Bld)ModerateHolzer Medical Center – Jackson Poikilocytosis LM Ql (Bld)Poikilocytosis [Presence] in Blood by Light microscopy [facility] – JacksonPolychromasia [Presence] in Blood by Light microscopyOrdered By: Brook Huddleston on 57-44-1448Ujzbfdotnjycb LM Ql (Bld)Slight [facility] – JacksonPolychromasia LM Ql (Bld)Polychromasia [Presence] in Blood by Light microscopyHolzer Medical Center – Jackson Potassium [Moles/volume] in Serum or PlasmaOrdered By: Brook Huddleston on 11-27-2022 Potassium [Moles/Vol]5.3 mmol/L3.5-5.1FChildren's Hospital for RehabilitationProtein [Mass/volume] in Serum or PlasmaOrdered By: Brook Huddleston on 97-56-3533Alvwlrb [Mass/Vol]6.7 g/dL6.4-8.9[facility] – JacksonRB Auto (Bld) [#/Vol] Ordered By: Brook Huddleston on 39-61-4980QMM (Bld) [#/Vol]2.68 10*6/uL3.90-5.60 [facility] morphologyOrdered By: Brook Huddleston on 46-95-9530IBC morphology finding Nom (Bld)N/AFChildren's Hospital for Rehabilitation Serum or plasma albumin/globulin mass ratioOrdered By: Brook Huddleston on 11-27-2022 Albumin/Globulin [Mass ratio]1.6 {ratio}[facility] Hospitalerum or plasma anion gap determinationOrdered By: Brook Huddleston on 72-73-2849Vjqix gap [Moles/Vol]13.6 mmol/L6.0-15.0[facility]edo Hospitalodium [Moles/volume] in Serum or PlasmaOrdered By: Brook Huddleston on 89-13-4252Fwbzdv [Moles/Vol]136 mmol/T582-091JthydcgcdHolzer Medical Center – JacksonTeardrop cell detectionOrdered By: Brook Huddleston on 67-70-9798Pnhyrqrrlc LM Ql (Bld)Slight [facility] – JacksonDacrocytes LM Ql (Bld)Teardrop cell detection [facility] – JacksonUrea nitrogen [Mass/volume] in Serum or Plasma Ordered By: Brook Huddleston on 81-23-7011Acku nitrogen [Mass/Vol]40 mg/dL7-25[facility] – JacksonWBC Auto (Bld) [#/Vol]Ordered By: Brook Huddleston on 32-33-9958DSB (Bld) [#/Vol]7.1 10*3/uL4.1-10.5FChildren's Hospital for Rehabilitation Calcium [Mass/volume] in Serum or PlasmaOrdered By: Orquidea Issa on 11-17-2022 Calcium [Mass/Vol]9.5 mg/dL8.6-10.3FChildren's Hospital for RehabilitationCarbon dioxide, total [Moles/volume] in Serum or PlasmaOrdered By: Orquidea Issa on 24-32-5103NV5 [Moles/Vol]23.9 mmol/L21.0-31.0[facility] Chloride [Moles/volume] in Serum or PlasmaOrdered By: Orquidea Issa on 11-17-2022 Chloride [Moles/Vol]104 mmol/R78-454FocnvpwqcHolzer Medical Center – JacksonCreatinine [Mass/volume] in Serum or PlasmaOrdered By: Orquidea Issa on 33-94-2185Tkpxwxuggr [Mass/Vol]1.87 mg/dL0.70-1.30[facility] JacksonGlucose [Mass/volume] in Serum or PlasmaOrdered By: Orquidea Issa on 13-23-4842Ykdrbnx [Mass/Vol]133 mg/iI58-377ZpdyuaqsgHolzer Medical Center – JacksonComment on above:ADA recommended reference rangeRandom Glucose Reference Range is dependent on time and content of last meal. Glucose of more than 200 mg/dL in a nonstressed, ambulatory subject supports the diagnosisof Diabetes Mellitus.No Panel InformationOrdered By: Orquidea Issa on 86-52-8493Rrepgjgnr GFR (CKD-EPI)36.576 mL/MinHolzer Medical Center – JacksonPharmacy Creatinine Clearance (ChemN/A [facility] JacksonPotassium [Moles/volume] in Serum or Plasma Ordered By: Orquidea Issa on 26-54-5130Drzhhismz [Moles/Vol]4.8 mmol/L3.5-5.1 [facility] Hospitalerum or plasma anion gap determinationOrdered By: Orquidea Issa on 58-17-8163Yiomw gap [Moles/Vol]12.9 mmol/L6.0-15.0[facility] Hospitalodium [Moles/volume] in Serum or PlasmaOrdered By: Orquidea Issa on 37-33-1681Owvhdq [Moles/Vol]136 mmol/Y235-286FfxvrursuHolzer Medical Center – JacksonUrea nitrogen [Mass/volume] in Serum or PlasmaOrdered By: Orquidea Issa on 01-25-9480Fuhw nitrogen [Mass/Vol]27 mg/dL7-25[facility] Alanine aminotransferase [Enzymatic activity/volume] in Serum or PlasmaOrdered By: Brook Huddleston on 55-37-3363AJS [Catalytic activity/Vol]18 U/L7-52[facility] – JacksonAlbumin [Mass/volume] in Serum or Plasma by Bromocresol green (BCG) dye binding methoOrdered By: Brook Huddleston on 19-53-3511Sncdlim BCG dye [Mass/Vol]4.2 g/dL3.5-5.7FChildren's Hospital for RehabilitationAlkaline phosphatase [Enzymatic activity/volume] in Serum or PlasmaOrdered By: Brook Huddleston on 08-92-2841LIW [Catalytic activity/Vol]97 U/B87-659MukqkgccaHolzer Medical Center – JacksonAnisocytosis LM Ql (Bld)Ordered By: Brook Huddleston on 14-54-3879Gztfrckudgrz Ql (Bld)SlightHolzer Medical Center – JacksonAspartate aminotransferase [Enzymatic activity/volume] in Serum or PlasmaOrdered By: Brook Huddleston on 73-20-8985IUM [Catalytic activity/Vol]17 U/R48-41UczmkfdazHolzer Medical Center – JacksonBasophils Auto (Bld) [#/Vol]Ordered By: Brook Huddleston on 60-67-9933Yhmdpuwyb (Bld) [#/Vol]N/[facility] HospitalBasophils/100 WBC Auto (Bld) Ordered By: Brook Huddleston on 26-84-1768Zhippaddl/100 WBC (Bld)N/[facility] HospitalBilirubin.total [Mass/volume] in Serum or PlasmaOrdered By: Brook Huddleston on 92-09-1714Ldlssluke [Mass/Vol]0.4 mg/dL0.3-1.0[facility] JacksonCalcium [Mass/volume] in Serum or PlasmaOrdered By: Brook Huddleston on 30-22-1671Gbfasvw [Mass/Vol]9.2 mg/dL8.6-10.3FChildren's Hospital for Rehabilitation Carbon dioxide, total [Moles/volume] in Serum or PlasmaOrdered By: Brook Huddleston on 26-99-3658QC0 [Moles/Vol]22.1 mmol/L21.0-31.0[facility] Chloride [Moles/volume] in Serum or PlasmaOrdered By: Brook Huddleston on 11-11-2022 Chloride [Moles/Vol]107 mmol/Q22-450YhoojymbfHolzer Medical Center – JacksonCreatinine [Mass/volume] in Serum or PlasmaOrdered By: Brook Huddleston on 05-70-1638Hkthqqbtez [Mass/Vol]2.05 mg/dL0.70-1.30[facility] – JacksonEosinophils Auto (Bld) [#/Vol]Ordered By: Brook Huddleston on 75-15-5818Yzuplxjrwgj (Bld) [#/Vol]N/A [facility] JacksonEosinophils/100 WBC Auto (Bld)Ordered By: Brook Huddleston on 56-92-7285Rhtfoxwwsgl/100 WBC (Bld)N/AFChildren's Hospital for Rehabilitation Eosinophils/100 WBC Manual cnt (Bld)Ordered By: Brook Huddleston on 11-11-2022 Eosinophils/100 WBC (Bld)3 %1-[facility] Hospital for RehabilitationEosinophils/100 WBC (Bld)Eosinophils/100 leukocytes in Blood by Manual count1-[facility] Hospital for RehabilitationErythrocyte distribution width Auto (RBC) [Ratio]Ordered By: Broko Huddleston on 03-47-0356Wvuxfbxxchf distribution width (RBC) [Ratio]16.0 % 12.0-14.8[facility] JacksonGiant platelets/100 leukocytes [Ratio] in Blood by Manual countOrdered By: Brook Huddleston on 04-37-4178Sstgj platelets/100 WBC Manual cnt (Bld) [Ratio]1 /100{WBC}[facility] – JacksonGiant platelets/100 WBC Manual cnt (Bld) [Ratio]Giant platelets/100 leukocytes [Ratio] in Blood by Manual countHolzer Medical Center – JacksonGlobulin Calc (S) [Mass/Vol]Ordered By: Brook Huddleston on 89-78-0063Nixjjivl (S) [Mass/Vol]2.5 g/dL [facility] JacksonGlucose [Mass/volume] in Serum or PlasmaOrdered By: Brook Huddleston on 82-99-7745Zlhpsff [Mass/Vol]190 mg/yZ22-660DoljnhtkdHolzer Medical Center – JacksonComment on above:ADA recommended reference rangeRandom Glucose Reference Range is dependent on time and content of last meal. Glucose of more than 200 mg/dL in a nonstressed, ambulatory subject supports the diagnosisof Diabetes Mellitus.Hematocrit Auto (Bld) [Volume fraction]Ordered By: Brook Huddleston on 00-46-2605Lqrkmyylhv (Bld) [Volume fraction]26.7 %38.8-50.0[facility] – JacksonHemoglobin [Mass/volume] in BloodOrdered By: Brook Huddleston on 65-34-6970Gjhsmdyibj (Bld) [Mass/Vol]9.1 g/dL13.0-17.0[facility] JacksonLaboratory - Chemistry and Chemistry - challengeOrdered By: Brook Huddleston on 56-10-8646QET/1.73 sq M.predicted MDRD (S/P/Bld) [Vol rate/Area]32.756 mL/min/{1.73_m2}[facility] – JacksonLeukocytes [#/volume] corrected for nucleated erythrocytes in Blood by Automated counOrdered By: Brook Huddleston on 33-61-1708BYV corrected for nucl RBC Auto (Bld) [#/Vol]6.0 10*3/uL4.1-10.5 [facility] – JacksonLymphocytes Auto (Bld) [#/Vol]Ordered By: Brook Huddleston on 64-40-3006Ufysofxefdu (Bld) [#/Vol]N/[facility] Lymphocytes/100 WBC Auto (Bld)Ordered By: Brook Huddleston on 37-73-8526Dhrfzzukkvy/100 WBC (Bld)N/[facility] HospitalLymphocytes/100 WBC Manual cnt (Bld)Ordered By: Brook Huddleston on 88-51-7139Qsmwluftxbg/100 WBC (Bld)16 %Guk18-53 [facility] JacksonLymphocytes/100 WBC (Bld)Lymphocytes/100 leukocytes in Blood by Manual qppqbJjc60-55XidtkrhjfAshtabula County Medical Center Auto (RBC) [Entitic mass]Ordered By: Brook Huddleston on 28-94-6101JUC (RBC) [Entitic mass]38.8 pg27.5-35.2FChildren's Hospital for RehabilitationMCHC Auto (RBC) [Mass/Vol] Ordered By: Brook Huddleston on 75-48-9330YCXH (RBC) [Mass/Vol]34.0 g/dL32.5-35.6 [facility] JacksonMCV Auto (RBC) [Entitic vol]Ordered By: Brook Huddleston on 96-54-0836LVW (RBC) [Entitic vol]114.2 fL83.5-101[facility] – JacksonMacrocytes LM Ql (Bld)Ordered By: Brook Huddleston on 11-11-2022 Macrocytes Ql (Bld)SlightHolzer Medical Center – JacksonMonocytes Auto (Bld) [#/Vol]Ordered By: Brook Huddleston on 18-35-9919Mvczseycv (Bld) [#/Vol]N/[facility] HospitalMonocytes/100 WBC Auto (Bld)Ordered By: Brook Huddleston on 22-69-2377Rcyqhhlgv/100 WBC (Bld)N/[facility] Monocytes/100 WBC Manual cnt (Bld)Ordered By: Brook Huddleston on 11-11-2022 Monocytes/100 WBC (Bld)13 %High2-11[facility] Monocytes/100 WBC (Bld)Monocytes/100 leukocytes in Blood by Manual countHigh2-11 [facility] JacksonNeutrophils Auto (Bld) [#/Vol]Ordered By: Brook Huddleston on 21-96-7837Utllmiujkho (Bld) [#/Vol]N/[facility] Neutrophils/100 WBC Auto (Bld)Ordered By: Brook Huddleston on 71-47-6278Avaxffzrrzb/100 WBC (Bld)N/[facility] HospitalNo Panel InformationOrdered By: Brook Huddleston on 55-57-7327Refuocmu Creatinine Clearance (Chem34.37[facility] – JacksonNucleated erythrocytes [Presence] in Blood by Automated countOrdered By: Brook Huddleston on 87-12-5909Ezkeqwfhz RBC Auto Ql (Bld)N/AFChildren's Hospital for RehabilitationOvalocyte detectionOrdered By: Brook Huddleston on 11-11-2022 Ovalocytes LM Ql (Bld)[facility] HospitalPlatelet adequacy [Presence] in Blood by Light microscopyOrdered By: Brook Huddleston on 11-11-2022 Platelets LM Ql (Bld)DecreasedNormMedina HospitalPlatelet mean volume Auto (Bld) [Entitic vol]Ordered By: Brook Huddleston on 14-69-0070Waulcvza mean volume (Bld) [Entitic vol]8.7 fL6.6-10.1FChildren's Hospital for Rehabilitation Platelet morphology finding [Identifier] in BloodOrdered By: Brook Huddleston on 12-16-2119Tyzjihwn morphology finding Nom (Bld)NormalNormMedina HospitalPlatelets Auto (Bld) [#/Vol]Ordered By: Brook Huddleston on 11-11-2022 Platelets (Bld) [#/Vol]117 10*3/oO826-424BsfztohjfHolzer Medical Center – Jackson Poikilocytosis [Presence] in Blood by Light microscopyOrdered By: Brook Huddleston on 73-44-5375Goyupmuugzcpyy LM Ql (Bld)[facility] Polychromasia [Presence] in Blood by Light microscopyOrdered By: Brook Huddleston on 19-22-8471Ufqqcrmfbfhmh LM Ql (Bld)ModerateHolzer Medical Center – Jackson Potassium [Moles/volume] in Serum or PlasmaOrdered By: Brook Huddleston on 11-11-2022 Potassium [Moles/Vol]4.9 mmol/L3.5-5.1FChildren's Hospital for RehabilitationProtein [Mass/volume] in Serum or PlasmaOrdered By: Brook Huddleston on 19-24-4570Cpwkyst [Mass/Vol]6.7 g/dL6.4-8.9[facility] – JacksonRBC Auto (Bld) [#/Vol] Ordered By: Brook Huddleston on 50-63-4260FEU (Bld) [#/Vol]2.34 10*6/uL3.90-5.60 [facility] – JacksonRBC morphologyOrdered By: Brook Huddleston on 03-54-2962XDU morphology finding Nom (Bld)N/AFChildren's Hospital for Rehabilitation Segmented neutrophils/100 WBC Manual cnt (Bld)Ordered By: Brook Huddleston on 28-95-2713Gzynxkvmt neutrophils/100 WBC (Bld)67 %50-70[facility] Hospitalegmented neutrophils/100 WBC (Bld)Manual blood segmented neutrophils/100 ssspwpotix04-53OanhusvffToledo Hospitalerum or plasma albumin/globulin mass ratioOrdered By: Brook Huddleston on 35-02-9360Pmaipio/Globulin [Mass ratio]1.7 {ratio}[facility] Hospitalerum or plasma anion gap determinationOrdered By: Brook Huddleston on 19-69-8244Fonpe gap [Moles/Vol]11.8 mmol/L6.0-15.0[facility] Hospitalodium [Moles/volume] in Serum or PlasmaOrdered By: Brook Huddleston on 21-97-7067Vomhxx [Moles/Vol]136 mmol/C477-554 [facility] JacksonUrea nitrogen [Mass/volume] in Serum or Plasma Ordered By: Brook Huddleston on 71-48-2829Tode nitrogen [Mass/Vol]29 mg/dL7-25[facility] JacksonVariant lymphocytes/100 WBC Manual cnt (Bld)Ordered By: Brook Huddleston on 49-30-3520Natezua lymphocytes/100 WBC (Bld)1 %0-12[facility] JacksonVariant lymphocytes/100 WBC (Bld)Variant lymphocytes/100 leukocytes in Blood by Manual count0-12[facility] JacksonWBC Auto (Bld) [#/Vol]Ordered By: Brook Huddleston on 54-59-3752ZRF (Bld) [#/Vol]6.0 10*3/uL 4.1-10.5FChildren's Hospital for RehabilitationUrine culture routineOrdered By: Helen Ochoa on 38-00-7352Nvixrrdb identified Cx Nom (U)2 DaysHolzer Medical Center – JacksonAlanine aminotransferase [Enzymatic activity/volume] in Serum or PlasmaOrdered By: Brook Huddleston on 81-43-9411ZHT [Catalytic activity/Vol]16 U/L7-52[facility] – JacksonAlbumin [Mass/volume] in Serum or Plasma by Bromocresol green (BCG) dye binding methoOrdered By: Brook Huddleston on 10-30-2022 Albumin BCG dye [Mass/Vol]4.0 g/dL3.5-5.7FChildren's Hospital for Rehabilitation Alkaline phosphatase [Enzymatic activity/volume] in Serum or PlasmaOrdered By: Brook Huddleston on 59-46-7246OSC [Catalytic activity/Vol]102 U/P87-593VybzimjbfHolzer Medical Center – JacksonAnisocytosis LM Ql (Bld)Ordered By: Brook Huddleston on 64-23-4434Ywhnhcdxpuxv Ql (Bld)SlightHolzer Medical Center – JacksonAspartate aminotransferase [Enzymatic activity/volume] in Serum or PlasmaOrdered By: Brook Huddleston on 72-74-3627DOJ [Catalytic activity/Vol]16 U/T88-60AezxtlawzHolzer Medical Center – JacksonBasophils Auto (Bld) [#/Vol]Ordered By: Brook Huddleston on 10-30-2022 Basophils (Bld) [#/Vol]0.0 10*3/uL0.0-0.2FChildren's Hospital for Rehabilitation Basophils/100 WBC Auto (Bld)Ordered By: Brook Huddleston on 88-55-5547Xeiajxseu/100 WBC (Bld)0.3 %.[facility] – JacksonBilirubin.total [Mass/volume] in Serum or PlasmaOrdered By: Brook Huddleston on 63-84-7310Ikyilchxc [Mass/Vol]0.4 mg/dL 0.3-1.0[facility] – JacksonCalcium [Mass/volume] in Serum or Plasma Ordered By: Brook Huddleston on 60-64-6560Exkkubn [Mass/Vol]8.9 mg/dL8.6-10.3FChildren's Hospital for RehabilitationCarbon dioxide, total [Moles/volume] in Serum or Plasma Ordered By: Brook Huddleston on 12-51-9109SD7 [Moles/Vol]23.2 mmol/L21.0-31.0[facility] – JacksonChloride [Moles/volume] in Serum or PlasmaOrdered By: Brook Huddleston on 85-49-8456Eyeymata [Moles/Vol]107 mmol/S42-113RombroorpHolzer Medical Center – JacksonCholesterol [Mass/volume] in Serum or PlasmaOrdered By: Helen Ochoa on 88-23-9700Kfstdacsjzb [Mass/Vol]138 mg/zV383-015YvgglupnjHolzer Medical Center – JacksonComment on above:Chol less than 200 mg/dl low riskChol 201-239 mg/dl borderline riskChol 240 mg/dl and greater high riskCholesterol in LDL Calc [Mass/Vol]Ordered By: Helen Ochoa on 05-71-4438Mhtptqqjryu in LDL [Mass/Vol] 66 mg/dL0-100[facility] – JacksonComment on above:LDL ATP III CLASSIFICATIONLDL less than 100 mg/dL OptimalLDL 100-129 mg/dL Near or above tgmuievENI759-725 mg/dL Borderline highLDL 160-189 mg/dL HighLDL greater than 189 mg/dL Very highCholesterol in VLDL Calc [Mass/Vol]Ordered By: Helen Ochoa on 79-14-9085Vjficeirghc in VLDL [Mass/Vol]25 mg/dLHolzer Medical Center – JacksonCreatinine [Mass/volume] in Serum or PlasmaOrdered By: Brook Huddleston on 86-80-7541Jnfyxnelfm [Mass/Vol]1.80 mg/dL0.70-1.30[facility] – JacksonEosinophils Auto (Bld) [#/Vol]Ordered By: Brook Huddleston on 10-30-2022 Eosinophils (Bld) [#/Vol]0.3 10*3/uL0.0-0.45[facility] Eosinophils/100 WBC Auto (Bld)Ordered By: Brook Huddleston on 54-86-6084Qornoxfoppp/100 WBC (Bld)4.6 %.[facility] – JacksonErythrocyte distribution width Auto (RBC) [Ratio]Ordered By: Brook Huddleston on 92-50-5173Yaienxymynd distribution width (RBC) [Ratio]16.3 %12.0-14.8[facility] – JacksonGlobulin Calc (S) [Mass/Vol]Ordered By: Brook Huddleston on 20-12-4363Atvopelj (S) [Mass/Vol]2.4 g/dLHolzer Medical Center – JacksonGlucose [Mass/volume] in Serum or Plasma Ordered By: Brook Huddleston on 82-27-9375Riuoojh [Mass/Vol]145 mg/kQ46-326RnevoqkvgHolzer Medical Center – JacksonComment on above:ADA recommended reference rangeRandom Glucose Reference Range is dependent on time and content of last meal. Glucose of more than 200 mg/dL in a nonstressed, ambulatory subject supports the diagnosisof Diabetes Mellitus.Glucose mean value [Mass/volume] in Blood Estimated from glycated hemoglobinOrdered By: Helen Ochoa on 10-30-2022 Average glucose Estimated from glycated hemoglobin (Bld) [Mass/Vol]166 mg/dL [facility] – JacksonHematocrit Auto (Bld) [Volume fraction]Ordered By: Brook Huddleston on 06-53-8086Ayjjrhupmm (Bld) [Volume fraction]26.9 %38.8-50.0 [facility] – JacksonHemoglobin A1c percentageOrdered By: Helen Ochoa on 73-95-1684BoD8q (Bld) [Mass fraction]7.4 %4.3-5.6FChildren's Hospital for RehabilitationComment on above:Increased risk for diabetes: 5.7 - 6.4diabetes: >6.4glycemic control for adults with diabetes: <7.0Hemoglobin [Mass/volume] in BloodOrdered By: Brook Huddleston on 40-55-3292Bsndaojsmm (Bld) [Mass/Vol]9.3 g/dL 13.0-17.0[facility] – JacksonLaboratory - Chemistry and Chemistry - challengeOrdered By: Brook Huddleston on 17-61-8363DXX/1.73 sq M.predicted MDRD (S/P/Bld) [Vol rate/Area]38.289 mL/min/{1.73_m2}[facility] – JacksonLeukocytes [#/volume] corrected for nucleated erythrocytes in Blood by Automated counOrdered By: Brook Huddleston on 85-09-7864EUN corrected for nucl RBC Auto (Bld) [#/Vol]6.1 10*3/uL4.1-10.5FChildren's Hospital for RehabilitationLymphocytes Auto (Bld) [#/Vol]Ordered By: Brook Huddleston on 18-10-8402Gbpsjwgvndk (Bld) [#/Vol] 1.1 10*3/uL1.00-4.8[facility] – JacksonLymphocytes/100 WBC Auto (Bld)Ordered By: Brook Huddleston on 60-77-4367Ezjaqpwcoal/100 WBC (Bld)18.4 %. [facility] – JacksonMCH Auto (RBC) [Entitic mass]Ordered By: Brook Huddleston on 29-54-7203KER (RBC) [Entitic mass]39.8 pg27.5-35.2FChildren's Hospital for RehabilitationMCHC Auto (RBC) [Mass/Vol]Ordered By: Brook Huddleston on 47-88-4760BPNZ (RBC) [Mass/Vol]34.6 g/dL32.5-35.6FChildren's Hospital for RehabilitationMCV Auto (RBC) [Entitic vol]Ordered By: Brook Huddleston on 08-57-5814WQO (RBC) [Entitic vol] 115.1 fL83.5-101[facility] – JacksonMacrocytes LM Ql (Bld)Ordered By: Brook Huddleston on 01-15-0351Yhjjjcwbzn Ql (Bld)SlightHolzer Medical Center – JacksonMonocytes Auto (Bld) [#/Vol]Ordered By: Brook Huddleston on 14-10-7812Mgxoxomaq (Bld) [#/Vol]0.5 10*3/uL0.0-0.8[facility] – JacksonMonocytes/100 WBC Auto (Bld)Ordered By: Brook Huddleston on 89-08-3359Hosrgoqtm/100 WBC (Bld)8.4 %. [facility] – JacksonNeutrophils Auto (Bld) [#/Vol]Ordered By: Brook Huddleston on 25-59-7025Onepxaccxbc (Bld) [#/Vol]4.2 10*3/uL1.8-7.7FChildren's Hospital for RehabilitationNeutrophils/100 WBC Auto (Bld)Ordered By: Brook Huddleston on 10-30-2022 Neutrophils/100 WBC (Bld)68.3 %.[facility] – JacksonNo Panel InformationOrdered By: Brook Huddleston on 85-51-6480Vedqheoj Creatinine Clearance (Chem39.14[facility] – JacksonNucleated erythrocytes [Presence] in Blood by Automated countOrdered By: Brook Huddleston on 62-69-7881Avshuvaqz RBC Auto Ql (Bld)0.1 /100{WBC}0-0.5FChildren's Hospital for RehabilitationOvalocyte detection Ordered By: Brook Huddleston on 46-22-0874Bsrwahxvtn LM Ql (Bld)[facility] HospitalPlatelet adequacy [Presence] in Blood by Light microscopy Ordered By: Brook Huddleston on 82-42-3393Bmtbdiplo LM Ql (Bld)DecreasedNormMedina HospitalPlatelet mean volume Auto (Bld) [Entitic vol]Ordered By: Brook Huddleston on 43-36-3870Tzzkzdgj mean volume (Bld) [Entitic vol]9.5 fL6.6-10.1 [facility] – JacksonPlatest. [facility] [place] morphology finding [Identifier] in BloodOrdered By: Brook Huddleston on 07-97-2473Bowbkciy morphology finding Nom (Bld) NormalNormMedina HospitalPlatelets Auto (Bld) [#/Vol]Ordered By: Brook Huddleston on 62-95-4563Udcrokwuw (Bld) [#/Vol]125 10*3/yV509-312DeyarlykhHolzer Medical Center – JacksonPolychromasia [Presence] in Blood by Light microscopy Ordered By: Brook Huddleston on 82-08-9950Wfnuzlefbkoic LM Ql (Bld)[facility] HospitalPotassium [Moles/volume] in Serum or PlasmaOrdered By: Brook Huddleston on 46-74-3915Qogwxhdnz [Moles/Vol]4.6 mmol/L3.5-5.1FChildren's Hospital for RehabilitationProtein [Mass/volume] in Serum or PlasmaOrdered By: Brook Huddleston on 12-55-2536Qdqlisj [Mass/Vol]6.4 g/dL6.4-8.9[facility] – JacksonRBC Auto (Bld) [#/Vol]Ordered By: Brook Huddleston on 36-93-5108CGH (Bld) [#/Vol]2.34 10*6/uL3.90-5.60[facility] – JacksonRB morphologyOrdered By: Brook Huddleston on 13-35-7332AGL morphology finding Nom (Bld)N/[facility] Hospitalchistocytes [Presence] in Blood by Light microscopyOrdered By: Brook Huddleston on 46-65-8845Clbcnwxbzzqq LM Ql (Bld)[facility] Serum or plasma albumin/globulin mass ratioOrdered By: Brook Huddleston on 10-30-2022 Albumin/Globulin [Mass ratio]1.7 {ratio}[facility] Hospitalerum or plasma anion gap determinationOrdered By: Brook Huddleston on 02-87-8047Zccus gap [Moles/Vol]11.4 mmol/L6.0-15.0[facility] Hospitalerum or plasma high density lipoprotein (HDL) cholesterol measurementOrdered By: Helen Ochoa on 54-88-2963Kygdxabeotv in HDL [Mass/Vol]47 mg/cY91-84QxapgfispHolzer Medical Center – JacksonComment on above:HDL CHOL ATP-III CLASSIFICATION Cardiovascular RiskHDL > or equal to 60 mg/dL LOWHDL < 40 mg/dL HIGHSerum or plasma methylmalonate measurement (moles/volume)Ordered By: Brook Huddleston on 10-30-2022 Methylmalonate [Moles/Vol]190 nmol/L0-378[facility] Comment on above:This test was developed and its performance characteristicsdetermined by [employer]. It has not been cleared orapproved by the Food and Drug Administration.Performed at: [address] [id number] Director: Aliya Curtis MD, Phone: [phone] or plasma total cholesterol/high density lipoprotein (HDL) cholesterol mass ratOrdered By: Helen Ochoa on 10-30-2022 Cholesterol.total/Cholesterol in HDL [Mass ratio]2.9 {ratio}<5.0[facility] Hospitalodium [Moles/volume] in Serum or PlasmaOrdered By: Brook Huddleston on 86-72-3313Evjwst [Moles/Vol]137 mmol/R155-386WrxunlbcnHolzer Medical Center – JacksonTeardrop cell detectionOrdered By: Brook Huddleston on 52-82-5380Lxflshpvud LM Ql (Bld)[facility] HospitalTriglyceride [Mass/volume] in Serum or PlasmaOrdered By: Helen Ochoa on 85-96-1486Juysmvnoutfe [Mass/Vol] 126 mg/dL0-149Hol[facility] – JacksonComment on above:TRIG ATP III CLASSIFICATIONTRIG less than 150 mg/dL NormalTRIG 150-199 mg/dL Borderline highTRIG 200-500 mg/dL High TRIG greater than 500 mg/dL Very highStandard traceable to the Center for Disease Conrtrol and Prevention (CDC) test method. Urea nitrogen [Mass/volume] in Serum or PlasmaOrdered By: Brook Huddleston on 35-97-2701Bmkg nitrogen [Mass/Vol]22 mg/dL7-25[facility] Vitamin B12 ser/plasOrdered By: Brook Huddleston on 42-59-6161Judowsxsd (Vitamin B12) [Mass/Vol]341 pg/sZ015-867EluwrrerlHolzer Medical Center – JacksonCobalamin (Vitamin B12) [Mass/Vol]Vitamin B12 ser/vimx216-398WffaqstjtHolzer Medical Center – JacksonWBC Auto (Bld) [#/Vol]Ordered By: Brook Huddleston on 46-20-0899DDH (Bld) [#/Vol]6.1 10*3/uL4.1-10.5FChildren's Hospital for RehabilitationAlbumin [Mass/volume] in Serum or PlasmaOrdered By: Brook Huddleston on 30-93-5115Uggbgns [Mass/Vol]3.7 g/dL3.2-5.5 [facility] – JacksonAlkaline phosphatase [Enzymatic activity/volume] in Serum or PlasmaOrdered By: Brook Huddleston on 36-50-7096IIV [Catalytic activity/Vol]102 U/Q48-79QssqpacxjHolzer Medical Center – Jackson Anisocytosis LM Ql (Bld)Ordered By: Brook Huddleston on 23-72-1346Hnhuqhvokoqw Ql (Bld) SlightHolzer Medical Center – JacksonAspartate aminotransferase [Enzymatic activity/volume] in Serum or PlasmaOrdered By: Brook Huddleston on 94-31-2430UOZ [Catalytic activity/Vol]22 U/I37-41OcqywwxplHolzer Medical Center – JacksonBasophils Auto (Bld) [#/Vol]Ordered By: Brook Huddleston on 87-46-5208Xfjrdtpnd (Bld) [#/Vol]0.0 10*3/uL0.0-0.2FChildren's Hospital for RehabilitationBasophils/100 WBC Auto (Bld) Ordered By: Brook Huddleston on 58-26-3663Nmepldpac/100 WBC (Bld)0.4 %.[facility] – JacksonBilirubin.total [Mass/volume] in Serum or PlasmaOrdered By: Brook Huddleston on 22-40-0008Sozowwmuw [Mass/Vol]0.4 mg/dL0.3-1.2FChildren's Hospital for RehabilitationCalcium [Mass/volume] in Serum or PlasmaOrdered By: Brook Huddleston on 73-11-1443Pusovdp [Mass/Vol]9.1 mg/dL8.2-10.2FChildren's Hospital for RehabilitationCarbon dioxide, total [Moles/volume] in Serum or PlasmaOrdered By: Brook Huddleston on [id number] [Moles/Vol]23.4 mmol/L22.0-30.0[facility] – JacksonChloride [Moles/volume] in Serum or PlasmaOrdered By: Brook Huddleston on 46-00-6922Hxhujzvm [Moles/Vol]105 mmol/I04-936CriaklffdHolzer Medical Center – Jackson Creatinine and Glomerular filtration rate.predicted panel (S/P/Bld)Ordered By: Brook Huddleston on 05-32-5528Tvblkcigrn [Mass/Vol]1.54 mg/dL0.64-1.27[facility] JacksonEosinophils Auto (Bld) [#/Vol]Ordered By: Brook Huddleston on 15-41-4491Llsmrlblyem (Bld) [#/Vol]0.2 10*3/uL0.0-0.45[facility] JacksonEosinophils/100 WBC Auto (Bld)Ordered By: Brook Huddleston on 10-14-2022 Eosinophils/100 WBC (Bld)3.2 %.[facility] JacksonErythrocyte distribution width Auto (RBC) [Ratio]Ordered By: Brook Huddleston on 10-14-2022 Erythrocyte distribution width (RBC) [Ratio]17.1 %12.0-14.8[facility] JacksonEstimated glomerular filtration rate (GFR) non- Ordered By: Brook Huddleston on 50-45-6804ADO/1.73 sq M.predicted among non-blacks MDRD (S/P/Bld) [Vol rate/Area]44 mL/MinHolzer Medical Center – JacksonGFR/1.73 sq M.predicted among non-blacks MDRD (S/P/Bld) [Vol rate/Area]Estimated glomerular filtration rate (GFR) non- AmericanHolzer Medical Center – Jackson Globulin Calc (S) [Mass/Vol]Ordered By: Brook Huddleston on 87-38-1161Nzhtjeed (S) [Mass/Vol]2.5 g/dLHolzer Medical Center – JacksonGlucose [Mass/volume] in Serum or PlasmaOrdered By: Brook Huddleston on 67-35-8897Khhfvut [Mass/Vol]138 mg/dL 70-100[facility] – JacksonComment on above:ADA recommended reference rangeRandom Glucose Reference Range is dependent on time and content of last meal. Glucose of more than 200 mg/dL in a nonstressed, ambulatory subject supports the diagnosisof Diabetes Mellitus.Hematocrit Auto (Bld) [Volume fraction]Ordered By: Brook Huddleston on 64-92-1368Ebklbnowap (Bld) [Volume fraction] 26.7 %38.8-50.0[facility] – JacksonHemoglobin [Mass/volume] in BloodOrdered By: Brook Huddleston on 08-91-4926Myeqtcowzd (Bld) [Mass/Vol]9.0 g/dL 13.0-17.0[facility] JacksonLeukocytes [#/volume] corrected for nucleated erythrocytes in Blood by Automated counOrdered By: Brook Huddleston on 69-51-5913KSJ corrected for nucl RBC Auto (Bld) [#/Vol]7.1 10*3/uL4.1-10.5 [facility] JacksonLymphocytes Auto (Bld) [#/Vol]Ordered By: Brook Huddleston on 14-61-6942Ulfliklkmfy (Bld) [#/Vol]1.0 10*3/uL1.00-4.8[facility] JacksonLymphocytes/100 WBC Auto (Bld)Ordered By: Brook Huddleston on 34-04-4469Puawyczallr/100 WBC (Bld)14.3 %.[facility] – JacksonMCH Auto (RBC) [Entitic mass]Ordered By: Brook Huddleston on 41-04-4454MTO (RBC) [Entitic mass]38.7 pg27.5-35.2FChildren's Hospital for RehabilitationMCHC Auto (RBC) [Mass/Vol] Ordered By: Brook Huddleston on 90-53-2528QHLG (RBC) [Mass/Vol]33.7 g/dL32.5-35.6 [facility] JacksonMCV Auto (RBC) [Entitic vol]Ordered By: Brook Huddleston on 85-99-9661BPO (RBC) [Entitic vol]114.9 fL83.5-101[facility] JacksonMonocytes Auto (Bld) [#/Vol]Ordered By: Brook Huddleston on 10-14-2022 Monocytes (Bld) [#/Vol]0.5 10*3/uL0.0-0.8[facility] Monocytes/100 WBC Auto (Bld)Ordered By: Brook Huddleston on 00-03-6171Uilxykafk/100 WBC (Bld)6.9 %.[facility] – JacksonNeutrophils Auto (Bld) [#/Vol] Ordered By: Brook Huddleston on 03-81-7143Nherphzwjzj (Bld) [#/Vol]5.3 10*3/uL1.8-7.7 [facility] JacksonNeutrophils/100 WBC Auto (Bld)Ordered By: Brook Huddleston on 31-32-8457Fvasjiclycm/100 WBC (Bld)75.2 %.[facility] – JacksonNo Panel InformationOrdered By: Brook Huddleston on 20-61-0502Pclblfaiz GFR ()53 mL/MinHolzer Medical Center – JacksonComment on above:GFR estimated reference range: According to KDOQI guidelines, <60 ml/min/1.73m2 is sufficient todiagnose a patient with chronic kidney disease.Pharmacy Creatinine Clearance (Chem45.75[facility] Jackson53 mL/MinHolzer Medical Center – JacksonNucleated erythrocytes [Presence] in Blood by Automated count Ordered By: Brook Huddleston on 78-83-8912Dofbypnpo RBC Auto Ql (Bld)0.2 /100{WBC}0-0.5 [facility] JacksonOvalocyte detectionOrdered By: Brook Huddleston on 88-26-8482Fqprzqizta LM Ql (Bld)[facility] HospitalPlatelet adequacy [Presence] in Blood by Light microscopyOrdered By: Brook Huddleston on 04-48-4227Jpvppvpcx LM Ql (Bld)DecreasedNormMedina Hospital Platelet mean volume Auto (Bld) [Entitic vol]Ordered By: Brook Huddleston on 10-14-2022 Platelet mean volume (Bld) [Entitic vol]9.5 fL6.6-10.1FChildren's Hospital for RehabilitationPlatelet morphology finding [Identifier] in BloodOrdered By: Brook Huddleston on 86-80-7285Zhvbzxwi morphology finding Nom (Bld)NormalNormMedina HospitalPlatelets Auto (Bld) [#/Vol]Ordered By: Brook Huddleston on 10-14-2022 Platelets (Bld) [#/Vol]128 10*3/bH660-789VqrfxewudHolzer Medical Center – Jackson Poikilocytosis [Presence] in Blood by Light microscopyOrdered By: Brook Huddleston on 08-89-6140Dcacmadlfmpzyd LM Ql (Bld)[facility] Polychromasia [Presence] in Blood by Light microscopyOrdered By: Brook Huddleston on 43-91-8460Cahpbzdvlbwlr LM Ql (Bld)[facility] Potassium [Moles/volume] in Serum or PlasmaOrdered By: Brook Huddleston on 10-14-2022 Potassium [Moles/Vol]4.7 mmol/L3.5-5.1FChildren's Hospital for RehabilitationProtein [Mass/volume] in Serum or PlasmaOrdered By: Brook Huddleston on 04-81-5472Ntbkejz [Mass/Vol]6.2 g/dL6.1-7.9[facility] – JacksonRB Auto (Bld) [#/Vol] Ordered By: Brook Huddleston on 02-32-1747OSZ (Bld) [#/Vol]2.32 10*6/uL3.90-5.60 [facility] JacksonRB morphologyOrdered By: Brook Huddleston on 10-15-7127OEV morphology finding Nom (Bld)N/AFChildren's Hospital for Rehabilitation Schistocytes [Presence] in Blood by Light microscopyOrdered By: Brook Huddleston on 80-82-4372Fozzvmccjzzv LM Ql (Bld)[facility]ont County Hospitalerum or plasma alanine aminotransferase measurement without P-5'-P (enzymatic activi Ordered By: Brook Huddleston on 78-97-3144SRD No additional P-5'-P [Catalytic activity/Vol]20 U/X06-92UwdfrrkxoToledo Hospitalerum or plasma albumin/globulin mass ratioOrdered By: Brook Huddleston on 15-75-9165Dkturmn/Globulin [Mass ratio]1.5 {ratio}[facility]edo Hospitalerum or plasma anion gap determinationOrdered By: Brook Huddleston on 38-36-8718Anojt gap [Moles/Vol]11.3 mmol/L6.0-15.0Toledo Hospitalodium [Moles/volume] in Serum or PlasmaOrdered By: Brook Huddleston on 64-01-8670Rxzleh [Moles/Vol]135 mmol/G076-441 [facility] – JacksonTeardrop cell detectionOrdered By: Brook Huddleston on 56-79-9150Zbfroltymf LM Ql (Bld)[facility] HospitalUrea nitrogen [Mass/volume] in Serum or PlasmaOrdered By: Brook Huddleston on 68-08-5459Jfki nitrogen [Mass/Vol]25 mg/dL9-23[facility] JacksonWBC Auto (Bld) [#/Vol]Ordered By: Brook Huddleston on 69-30-3890DCF (Bld) [#/Vol]7.1 10*3/uL4.1-10.5 [facility] JacksonAlbumin [Mass/volume] in Serum or PlasmaOrdered By: Brook Huddleston on 73-76-6407Abxtufm [Mass/Vol]3.6 g/dL3.2-5.5FChildren's Hospital for RehabilitationAnisocytosis LM Ql (Bld)Ordered By: Brook Huddleston on 10-01-2022 Anisocytosis Ql (Bld)[facility] HospitalBasophils Auto (Bld) [#/Vol]Ordered By: Brook Huddleston on 41-03-1153Zyjskdpit (Bld) [#/Vol]0.0 10*3/uL 0.0-0.2FChildren's Hospital for RehabilitationBasophils/100 WBC Auto (Bld)Ordered By: Brook Huddleston on 59-08-6309Vuxadjoam/100 WBC (Bld)0.1 %.[facility] – JacksonCreatinine and Glomerular filtration rate.predicted panel (S/P/Bld)Ordered By: Brook Huddleston on 84-20-7094Wynnormkqe [Mass/Vol]2.02 mg/dL0.64-1.27[facility] JacksonEosinophils Auto (Bld) [#/Vol]Ordered By: Brook Huddleston on 96-68-0994Tijjblnwrne (Bld) [#/Vol]0.2 10*3/uL0.0-0.45[facility] JacksonEosinophils/100 WBC Auto (Bld)Ordered By: Brook Huddleston on 10-01-2022 Eosinophils/100 WBC (Bld)2.9 %.[facility] JacksonErythrocyte distribution width Auto (RBC) [Ratio]Ordered By: Brook Huddleston on 10-01-2022 Erythrocyte distribution width (RBC) [Ratio]17.3 %12.0-14.8[facility] JacksonEstimated glomerular filtration rate (GFR) non- Ordered By: Brook Huddleston on 96-40-8696NHS/1.73 sq M.predicted among non-blacks MDRD (S/P/Bld) [Vol rate/Area]32 mL/MinHolzer Medical Center – JacksonGlobulin Calc (S) [Mass/Vol]Ordered By: Brook Huddleston on 48-05-8928Djdyfcmp (S) [Mass/Vol]2.4 g/dLHolzer Medical Center – JacksonHematocrit Auto (Bld) [Volume fraction] Ordered By: Brook Huddleston on 91-96-8580Kqdrdqtnwf (Bld) [Volume fraction]25.9 % 38.8-50.0[facility] JacksonHemoglobin [Mass/volume] in Blood Ordered By: Brook Huddleston on 65-80-2935Jlgszkzsha (Bld) [Mass/Vol]8.6 g/dL13.0-17.0 [facility] JacksonLeukocytes [#/volume] corrected for nucleated erythrocytes in Blood by Automated counOrdered By: Brook Huddleston on 74-13-5287AGV corrected for nucl RBC Auto (Bld) [#/Vol]6.4 10*3/uL4.1-10.5FChildren's Hospital for RehabilitationLymphocytes Auto (Bld) [#/Vol]Ordered By: Brook Huddleston on 10-01-2022 Lymphocytes (Bld) [#/Vol]1.0 10*3/uL1.00-4.8[facility] Lymphocytes/100 WBC Auto (Bld)Ordered By: Brook Huddleston on 23-99-3620Aqackyvpnji/100 WBC (Bld)16.3 %.[facility] CenterH Auto (RBC) [Entitic mass] Ordered By: Brook Huddleston on 04-29-9343TRT (RBC) [Entitic mass]38.9 pg27.5-35.2 [facility] JacksonMCHC Auto (RBC) [Mass/Vol]Ordered By: Brook Huddleston on 96-98-9180SDZA (RBC) [Mass/Vol]33.4 g/dL32.5-35.6FChildren's Hospital for RehabilitationMCV Auto (RBC) [Entitic vol]Ordered By: Brook Huddleston on 70-88-4640UEC (RBC) [Entitic vol]116.5 fL83.5-101[facility] JacksonMonocytes Auto (Bld) [#/Vol]Ordered By: Brook Huddleston on 44-19-6273Spyggvtxg (Bld) [#/Vol]0.4 10*3/uL0.0-0.8[facility] JacksonMonocytes/100 WBC Auto (Bld) Ordered By: Brook Huddleston on 66-43-9434Aljsqlmdo/100 WBC (Bld)6.8 %.[facility] JacksonNeutrophils Auto (Bld) [#/Vol]Ordered By: Brook Huddleston on 63-24-9358Tglkwjrddpv (Bld) [#/Vol]4.7 10*3/uL1.8-7.7FChildren's Hospital for RehabilitationNeutrophils/100 WBC Auto (Bld)Ordered By: Brook Huddleston on 10-01-2022 Neutrophils/100 WBC (Bld)73.9 %.[facility] – JacksonNo Panel InformationOrdered By: Brook Huddleston on 93-98-4607Ghojsrjoz GFR ()39 mL/MinHolzer Medical Center – JacksonComment on above:GFR estimated reference range: According to KDOQI guidelines, <60 ml/min/1.73m2 is sufficient to diagnose a patient with chronic kidney disease.Pharmacy Creatinine Clearance (Chem34.88[facility] JacksonNucleated erythrocytes [Presence] in Blood by Automated countOrdered By: Brook Huddleston on 38-97-8633Fxrpypnvf RBC Auto Ql (Bld)0.1 /100{WBC}0-0.5FChildren's Hospital for RehabilitationPlatelet adequacy [Presence] in Blood by Light microscopyOrdered By: Brook Huddleston on 10-01-2022 Platelets LM Ql (Bld)DecreasedNormalHolzer Medical Center – JacksonPlatelet mean volume Auto (Bld) [Entitic vol]Ordered By: Brook Huddleston on 61-39-9129Vbojncyu mean volume (Bld) [Entitic vol]9.1 fL6.6-10.1FChildren's Hospital for Rehabilitation Platelet morphology finding [Identifier] in BloodOrdered By: Brook Huddleston on 98-51-2185Uoxrecjy morphology finding Nom (Bld)N/AFChildren's Hospital for RehabilitationPlatelets Auto (Bld) [#/Vol]Ordered By: Brook Huddleston on 20-47-3184Djvsmneqv (Bld) [#/Vol]120 10*3/dL657-513VqtmspjoqHolzer Medical Center – JacksonPlatelets Large [Presence] in Blood by Light microscopyOrdered By: Brook Huddleston on 10-01-2022 Platelets Large LM Ql (Bld)SlightHolzer Medical Center – JacksonPlatelets Large LM Ql (Bld)Platelets Large [Presence] in Blood by Light microscopy [facility] JacksonPoikilocytosis [Presence] in Blood by Light microscopyOrdered By: Brook Huddleston on 64-00-5466Jtenlrddwldpid LM Ql (Bld)Slight [facility] – JacksonPolychromasia [Presence] in Blood by Light microscopyOrdered By: Brook Huddleston on 16-04-6495Hqnyrbekztrxu LM Ql (Bld)Moderate [facility] JacksonProtein [Mass/volume] in Serum or PlasmaOrdered By: Brook Huddleston on 50-13-5774Tcuqaqq [Mass/Vol]6.0 g/dL6.1-7.9[facility] JacksonRB Auto (Bld) [#/Vol]Ordered By: Brook Huddleston on 92-95-9269SGU (Bld) [#/Vol]2.22 10*6/uL3.90-5.60[facility] morphology Ordered By: Brook Huddleston on 77-53-7356DDG morphology finding Nom (d)N/AFOhio State Harding Hospitalchistocytes [Presence] in Blood by Light microscopy Ordered By: Brook Huddleston on 37-30-3588Hxztykpixsiz LM Ql (Bld)SlightToledo Hospitalerum or plasma alanine aminotransferase measurement without P-5'-P (enzymatic activiOrdered By: Brook Huddleston on 60-58-1454WVS No additional P-5'-P [Catalytic activity/Vol]19 U/E45-81JsvcbjvzjToledo Hospitalerum or plasma albumin/globulin mass ratioOrdered By: Brook Huddleston on 37-86-5921Ydnwtve/Globulin [Mass ratio]1.5 {ratio}[facility]edo Hospitalerum or plasma alkaline phosphatase measurement (enzymatic activity/volume)Ordered By: Brook Huddleston on 36-50-6396ZBM [Catalytic activity/Vol] 111 U/S94-91YkbiormxsToledo Hospitalerum or plasma anion gap determinationOrdered By: Brook Huddleston on 84-38-5600Zqoxk gap [Moles/Vol]10.6 mmol/L 6.0-15.0T[facility]edo Hospitalerum or plasma aspartate aminotransferase measurement (enzymatic activity/volume)Ordered By: Brook Huddleston on 52-19-2659GIR [Catalytic activity/Vol]18 U/F70-03OuxjjqvrkToledo Hospitalerum or plasma calcium measurement (mass/volume)Ordered By: Brook Huddleston on 52-88-3478Dnuztta [Mass/Vol]8.9 mg/dL8.2-10.2FChildren's Hospital for Rehabilitation Serum or plasma chloride measurement (moles/volume)Ordered By: Brook Huddleston on 18-41-9258Wqqbbflm [Moles/Vol]106 mmol/X65-289PwycotvpdHolzer Medical Center – Jackson Serum or plasma glucose measurement (mass/volume)Ordered By: Brook Huddleston on 25-91-8540Onnkcxl [Mass/Vol]251 mg/sB98-085HjircjvetHolzer Medical Center – Jackson Comment on above:ADA recommended reference rangeRandom Glucose Reference Range is dependent on time and content of last meal. Glucose of more than 200 mg/dL in a nonstressed, ambulatory subject supports the diagnosisof Diabetes Mellitus. Serum or plasma potassium measurement (moles/volume)Ordered By: Brook Huddleston on 08-05-9436Ccmsfayea [Moles/Vol]4.7 mmol/L3.5-5.1FOhio State Harding Hospitalerum or plasma sodium measurement (moles/volume)Ordered By: Brook Huddleston on 07-39-5287Hctyyz [Moles/Vol]135 mmol/X459-644OfgsrmenpHolzer Medical Center – Jackson Serum or plasma total bilirubin measurement (mass/volume)Ordered By: Brook Huddleston on 07-28-6046Bbuzqlgox [Mass/Vol]0.2 mg/dL0.3-1.2FOhio State Harding Hospitalerum or plasma total carbon dioxide measurement (moles/volume)Ordered By: Brook Huddleston on 70-37-8247BH9 [Moles/Vol]23.1 mmol/L22.0-30.0[facility]edo Hospitalerum or plasma urea nitrogen measurement (mass/volume)Ordered By: Brook Huddleston on 78-88-2818Jhuj nitrogen [Mass/Vol]21 mg/dL9-23[facility] JacksonTeardrop cell detectionOrdered By: Brook Huddleston on 10-01-2022 Dacrocytes LM Ql (Bld)SlightHolzer Medical Center – JacksonWBC Auto (Bld) [#/Vol]Ordered By: Brook Huddleston on 45-63-1367QSW (Bld) [#/Vol]6.4 10*3/uL4.1-10.5 [facility] JacksonAutomated epithelial cells count in urine sediment (number/area)Ordered By: Price Crain on 03-18-1668Iqteiztbve cells Auto (Urine sed) [#/Area]3-4 [HPF]0-2FChildren's Hospital for RehabilitationAutomated erythrocytes count in urine sediment (number/area)Ordered By: Price Crain on 47-79-9578OEB Auto (Urine sed) [#/Area]5-9 [HPF]0-4FChildren's Hospital for RehabilitationAutomated leukocytes count in urine sediment (number/area)Ordered By: Price Crain on 65-72-0614EAF Auto (Urine sed) [#/Area]Innumerable [HPF]0-4FChildren's Hospital for RehabilitationBilirubin Auto test strip Ql (U)Ordered By: Price Crain on 88-35-3033Fyciahlbb Ql (U)NegativeNegativeHolzer Medical Center – Jackson Body fluid albumin measurement (mass/volume)Ordered By: Price Crain on 22-46-1136Jcudjxr (Body fld) [Mass/Vol]3.5 g/dL3.2-5.5FChildren's Hospital for RehabilitationCreatinine [Mass/volume] in UrineOrdered By: Price Crain on 09-23-2022 Creatinine (U) [Mass/Vol]52.1 mg/dLHolzer Medical Center – JacksonComment on above:No reference range establishedCreatinine and Glomerular filtration rate.predicted panel (S/P/Bld)Ordered By: Price Crain on 14-08-1642Oslypydmym [Mass/Vol]1.90 mg/dL0.64-1.27[facility] JacksonEstimated glomerular filtration rate (GFR) non- AmericanOrdered By: Price Crain on 58-71-8480HET/1.73 sq M.predicted among non-blacks MDRD (S/P/Bld) [Vol rate/Area]35 mL/MinHolzer Medical Center – JacksonGlobulin Calc (S) [Mass/Vol] Ordered By: Price Crain on 41-70-6797Zxrlzsmo (S) [Mass/Vol]2.7 g/dLHolzer Medical Center – JacksonKetones Auto test strip (U) [Mass/Vol]Ordered By: Price Crain on 55-48-9095Rkuwkzy (U) [Mass/Vol]NegativeNegativeHolzer Medical Center – JacksonLaboratory - Chemistry and Chemistry - challengeOrdered By: Price Crain on 68-56-4618Fmvndjcbr [Mass/Vol]2.0 mg/dL1.6-2.6FChildren's Hospital for RehabilitationNo Panel InformationOrdered By: Price Crain on 82-94-735352- Hydroxy Vitamin D Total43.4 ng/nD42-089JacibeckwHolzer Medical Center – JacksonComment on above:VITAMIN D STATUS 25(OH)VITAMIN D RANGE (ng/mL) Deficient <20 Insufficient 20 to <92Bfngyblkef97 to 100Reference: Dieudonne MF,Brendon NC, Estrella CARTER, et al. Evaluation,treatment, and prevention of vitamin D deficiency; an Endocrine Society clinical practice guideline. JCEM. 2010; 96 (7):1911-30.Estimated GFR ()42 mL/MinHolzer Medical Center – JacksonComment on above:GFR estimated reference range: According to KDOQI guidelines, <60 ml/min/1.73m2 is sufficient todiagnose a patient with chronic kidney disease.Pharmacy Creatinine Clearance (ChemN/[facility] HospitalProtein Auto test strip (U) [Mass/Vol]Ordered By: Price Crain on 54-59-8127Gjbnems (U) [Mass/Vol]30 mg/dLNegativeHolzer Medical Center – JacksonProtein [Mass/volume] in Serum or PlasmaOrdered By: Price Crain on 63-29-9154Pvqrhee [Mass/Vol]6.2 g/dL6.1-7.9[facility] Protein [Mass/volume] in UrineOrdered By: Price Crain on 36-35-2011Fehtaqs (U) [Mass/Vol]67 mg/dL0-9T[facility]edo Hospitalerum or plasma alanine aminotransferase measurement without P-5'-P (enzymatic activiOrdered By: Price Crain on 69-33-3912MGL No additional P-5'-P [Catalytic activity/Vol]19 U/L 10-60[facility] Hospitalerum or plasma albumin/globulin mass ratioOrdered By: Price Crain on 47-96-7576Feylmzj/Globulin [Mass ratio]1.3 {ratio}[facility]edo Hospitalerum or plasma alkaline phosphatase measurement (enzymatic activity/volume)Ordered By: Price Crain on 29-94-9130ELY [Catalytic activity/Vol]105 U/M19-40MjmvxhpikToledo Hospitalerum or plasma anion gap determinationOrdered By: Price Crain on 81-38-7585Suqvs gap [Moles/Vol]12.4 mmol/L6.0-15.0[facility] Hospitalerum or plasma aspartate aminotransferase measurement (enzymatic activity/volume)Ordered By: Price Crain on 58-20-3040SJF [Catalytic activity/Vol]19 U/I25-90YlcqkpqtiToledo Hospitalerum or plasma calcium measurement (mass/volume)Ordered By: Price Crain on 42-75-8511Ynvntuv [Mass/Vol]9.3 mg/dL8.2-10.2FOhio State Harding Hospitalerum or plasma chloride measurement (moles/volume) Ordered By: Price Crain on 41-35-8328Mkzrmfpv [Moles/Vol]103 mmol/L95-114 [facility] Hospitalerum or plasma glucose measurement (mass/volume)Ordered By: Price Crain on 82-02-6588Avkltsp [Mass/Vol]245 mg/dL 70-100[facility] – JacksonComment on above:ADA recommended reference rangeRandom Glucose Reference Range is dependent on time and content of last meal. Glucose of more than 200 mg/dL in a nonstressed, ambulatory subject supports the diagnosisof Diabetes Mellitus.Serum or plasma intact parathyroid hormone measurement (mass/volume)Ordered By: Price Crain on 98-41-4269Gsnmvksbwe.intact [Mass/Vol]69.0 pg/pY20-40PllznysclToledo Hospitalerum or plasma potassium measurement (moles/volume)Ordered By: Price Crain 84-05-5826Emrqzdjvc [Moles/Vol]4.8 mmol/L3.5-5.1FOhio State Harding Hospitalerum or plasma sodium measurement (moles/volume)Ordered By: Price Crain on 99-65-3254Kmeddd [Moles/Vol]133 mmol/J802-446VenmzbhqrToledo Hospitalerum or plasma total bilirubin measurement (mass/volume)Ordered By: Price Crain on 23-15-7944Kryjfonxs [Mass/Vol]0.4 mg/dL0.3-1.2FOhio State Harding Hospitalerum or plasma total carbon dioxide measurement (moles/volume)Ordered By: Price Crain on 58-15-1535UP2 [Moles/Vol]22.4 mmol/L 22.0-30.0[facility] Hospitalerum or plasma urea nitrogen measurement (mass/volume)Ordered By: Price Crain on 62-66-6672Vnii nitrogen [Mass/Vol]23 mg/dL9-23[facility] Hospitalerum or plasma uric acid measurement (mass/volume)Ordered By: Price Crain on 47-41-1705Kwfyh [Mass/Vol] 4.5 mg/dL2.6-7.2FChildren's Hospital for RehabilitationUrine appearanceOrdered By: Price Crain on 76-93-6364Wdeuniqzgp (U)CloudyCleKeenan Private HospitalUrine bacteria detection by automated methodOrdered By: Price Crain on 43-99-9536Zddvgdqt Auto Ql (U)1+None SeenHolzer Medical Center – JacksonUrine colorOrdered By: Price Crain on 69-11-1752Vucxs (U)YellowYellowHolzer Medical Center – JacksonUrine culture routineOrdered By: Price Crain on 44-98-0425Yrzngzot identified Cx Nom (U)No Growth 2 [facility] CenterBacteria identified Cx Nom (U)No Growth 2 [facility] CenterUrine glucose measurement by automated test strip (mass/volume) Ordered By: Price Crain on 92-73-4393Ksqdbse Auto test strip (U) [Mass/Vol]500 mg/dLNormalHolzer Medical Center – JacksonUrine hemoglobin detection by automated test stripOrdered By: Price Crain on 56-43-4380Vrlboivqyz Auto test strip Ql (U)3+NegativeHolzer Medical Center – JacksonUrine leukocyte esterase detection by automated test stripOrdered By: Price Crain on 68-73-2305Vptllyptf esterase Auto test strip Ql (U)4+NegativeHolzer Medical Center – JacksonUrine nitrite detection by automated test stripOrdered By: Price Crain on 09-23-2022 Nitrite Auto test strip Ql (U)NegativeNegativeHolzer Medical Center – Jackson Urine protein/creatinine ratioOrdered By: Price Crain on 09-23-2022 Protein/Creatinine (U) [Ratio]1286 mg/g{Cre}0-200[facility] – JacksonUrobilinogen Auto test strip (U) [Mass/Vol]Ordered By: Price Crain on 88-05-1184Ykymiepwycjh (U) [Mass/Vol]Normal mg/dLNormalHolzer Medical Center – JacksonpH Auto test strip (U)Ordered By: Price Crain on 55-41-4744qG (U) 1.015 [pH]1.001-1.030[facility] – JacksonpH (U)6.5 [pH]5.0-9.0 [facility] – JacksonCT biopsyOrdered By: Brook Huddleston on 09-03-2022 Transferrin [Mass/Vol]173 mg/fI316-130JgelwijawHolzer Medical Center – JacksonFerritin [Mass/volume] in Serum or PlasmaOrdered By: Brook Huddleston on 58-17-5927Qqomazoc [Mass/Vol]574.6 ng/mL23.9-336.2FChildren's Hospital for RehabilitationIron [Mass/volume] in Serum or PlasmaOrdered By: Brook Huddleston on 61-37-8927Knzg [Mass/Vol]90 ug/hO37-116UfrokfvywHolzer Medical Center – JacksonIron binding capacity [Mass/volume] in Serum or PlasmaOrdered By: Brook Huddleston on 79-74-9081Gips binding capacity [Mass/Vol]242 ug/hV903-120GfunhelghHolzer Medical Center – JacksonIron saturation [Mass Fraction] in Serum or PlasmaOrdered By: Brook Huddleston on 09-03-2022 Iron saturation [Mass fraction]37.2 %20-50Toledo Hospitalerum or plasma erythropoietin (EPO) measurement (units/volume)Ordered By: Brook Huddleston on 76-39-4915Gtyiudrqyiyerf (EPO) Qn409.2 mIU/mLHigh2.6-18.5FChildren's Hospital for RehabilitationComment on above:SmartDrive Systemsel DxI 800 Immunoassay SystemValues obtained with different assay methods or kits cannotbe used interchangeably. Results cannot be interpreted asabsolute evidence of the presence or absence of malignantdisease.Performed at: [address] [id number] Director: Melchor Agrawal PhD, Phone: [phone] (EPO) QnSerum or plasma erythropoietin (EPO) measurement (units/volume)High2.6-18.5FChildren's Hospital for RehabilitationComment on above:[employer]netel DxI 800 Immunoassay SystemValues obtained with different assay methods or kits cannotbe used interchangeably. Results cannot be interpreted asabsolute evidence of the presence or absence of malignantdisease.Performed at: [facility] InstallMonetizer[address] [id number] Director: Melchor Agrawal PhD, Phone: [phone] or plasma homocysteine measurement (moles/volume)Ordered By: Brook Huddleston on 09-03-2022 Homocysteine [Moles/Vol]16.0 umol/L0.0-19.2FChildren's Hospital for Rehabilitation Comment on above:Performed at: [facility] InstallMonetizer[address] [id number] Director: Melchor Agrawal PhD, Phone: [phone] or plasma methylmalonate measurement (moles/volume)Ordered By: Brook Huddleston on 09-03-2022 Methylmalonate [Moles/Vol]231 nmol/L0-[address] [place] [address] Comment on above:This test was developed and its performance characteristicsdetermined by [employer]. It has not been cleared orapproved by the Food and Drug Administration.Performed at: [address] [id number] Director: Aliya Curtis MD, Phone: [phone] OF CARE GLUCOSEon 57-31-7490Zymxrnq [Mass/Vol]250 mg/dL Critically evyh68-202LegCleveland Clinic FoundationComment on above:Performed By: #### POCGLUC #### [facility] [address] [place] [address] Dr. Lydia MerrittPOINT CARE GLUCOSEon 46-26-4998Dipkwsu [Mass/Vol]283 mg/dL Critically oarx36-791VtpCleveland Clinic FoundationComment on above:Performed By: #### PTT, PT #### [facility] [address] [address] [address] Lydia MerrittGlucose [Mass/Vol]207 mg/dLCritically xbfb30-801Btg [facility] HospitalComment on above:Performed By: #### PTT, PT #### [facility] [address] [place] [address] Dr. Lydia MerrittPROF CHEM 8 (BAS METB)on 00-68-2091Mmvlz gap [Moles/Vol]15.8 mmol/LNormalThe [facility] County HospitalComment on above:Performed By: #### PTT, PT #### [facility] [address] [place] [address] Dr. Lydia MerrittCalcium [Mass/Vol]8.7 mg/dLNormal8.5-10.1The [facility] Comment on above:Performed By: #### PTT, PT #### [facility] [address] [place] [address] Dr. Lydia MerrittChloride [Moles/Vol]107 mmol/ONfvrqg15-691Asx [facility] Comment on above:Performed By: #### PTT, PT #### [facility] [address] [place] [address] Dr. Lydia MerrittCO2 [Moles/Vol]22.4 mmol/KUitwbk63.0-32.0The [facility] Comment on above:Performed By: #### PTT, PT #### [facility] [address] [place] [address] Dr. Lydia MerrittCreatinine [Mass/Vol]1.82 mg/dLCritically high0.70-1.30The [facility] County HospitalComment on above:Performed By: #### PTT, PT #### [facility] [address] [place] [address] Dr. Lydia MoyaGFR-AF WDSCMTGF41 mL/min/1.60t6Kwpljgruvs low>=60The [facility] County HospitalComment on above:Performed By: #### PTT, PT #### [facility] [address] [place] [address] Dr. Lydia MoyaGFR-NON AF SGBGJIIK20 mL/min/1.31h7Lsbphtiewr low>=60The [facility] HospitalComment on above:Performed By: #### PTT, PT #### [facility] [address] [address] [address] Lydia MerrittGlucose [Mass/Vol]128 mg/dLCritically xkvl78-515Aor [facility] HospitalComment on above:Performed By: #### PTT, PT #### [facility] [address] [place] [address] Dr. Lydia MerrittPotassium [Moles/Vol]5.2 mmol/LCritically high3.5-5.1The [facility] HospitalComment on above:Performed By: #### PTT, PT #### [facility] [address] [address] [address] Lydia MerrittSodium [Moles/Vol]140 mmol/XFwticw805-124JbgCleveland Clinic Foundation Comment on above:Performed By: #### PTT, PT #### [facility] [address] [place] [address] Dr. Lydia MerrittUrea nitrogen [Mass/Vol]25.0 mg/dLCritically high7.0-18.0The [facility] HospitalComment on above:Performed By: #### PTT, PT #### [facility] [address] [place] [address] Dr. Lydia MerrittUrea nitrogen/Creatinine [Mass ratio]13.7 mg/mgNormalThe [facility] County HospitalComment on above:Performed By: #### PTT, PT #### [facility] [address] [place] [address] Dr. Lydia MerrittCovid-19 PCR ([facility])on 07-26-4220AZKI-CoV-2 (COVID-19) RNA ERIN+probe Ql (Unsp spec)Not detectedNormalNOT DETECTEDThe [facility] Comment on above:Result Comment: This test is not yet approved or cleared by the [place] FDA. When there are no FDA-approved or cleared tests available, and other criteria are met, FDA can make tests available under an emergency access mechanism called an Emergency Use Authorization (EUA). The EUA for this test is supported by the [place] of Health and Human Service's (HHS's) declaration that circumstances exist to justify the emergency use of in vitro diagnostics for the detection and/or diagnosis of the virus that causes COVID- 19. This EUA will remain in effect (meaning [...] of clinical signs and symptoms consistent with SARS-CoV-2.Performed By: #### CVDTB #### [facility] [address] [address] [address] Lydia MerrittAlbumin [Mass/volume] in Serum or PlasmaOrdered By: Rosie Chew on 62-47-6228Qpfstpq [Mass/Vol]3.4 g/dL3.2-5.5FChildren's Hospital for RehabilitationAlbumin [Mass/Vol]3.3 g/dL2.9-4.4FChildren's Hospital for Rehabilitation Albumin/Protein.total in 24 hour Urine by ElectrophoresisOrdered By: Rosie Chew on 33-53-0043Dmmphvf Elph (24H U) [Mass fraction]47.1 %.[facility] – JacksonAnisocytosis LM Ql (Bld)Ordered By: Rosie Chew on 57-59-7381Gzjwlsyzksdk Ql (Bld)MarkedHolzer Medical Center – Jackson Basophils Auto (Bld) [#/Vol]Ordered By: Rosie Chew on 08-20-2022 Basophils (Bld) [#/Vol]0.0 10*3/uL0.0-0.2FChildren's Hospital for Rehabilitation Basophils/100 WBC Auto (Bld)Ordered By: Rosiesafia Chew on 08-20-2022 Basophils/100 WBC (Bld)0.3 %.[facility] – JacksonCreatinine and Glomerular filtration rate.predicted panel (S/P/Bld)Ordered By: Rosie Chew on 54-25-2970Iglabrolde [Mass/Vol]2.30 mg/dL0.64-1.27[facility] – JacksonEosinophils Auto (Bld) [#/Vol]Ordered By: Rosie Chew on 26-59-2734Weyxxxsotrj (Bld) [#/Vol]0.2 10*3/uL0.0-0.45[facility] – JacksonEosinophils/100 WBC Auto (Bld)Ordered By: Rosie Chew on 95-27-5185Mpyxrupints/100 WBC (Bld)3.1 %.[facility] – JacksonErythrocyte distribution width Auto (RBC) [Ratio]Ordered By: Rosie Chew on 83-77-2712Bubwsmsnscf distribution width (RBC) [Ratio] 20.1 %12.0-14.8[facility] – JacksonEstimated glomerular filtration rate (GFR) non- AmericanOrdered By: Rosie Chew on 08-20-2022 GFR/1.73 sq M.predicted among non-blacks MDRD (S/P/Bld) [Vol rate/Area]28 mL/Min [facility] – JacksonGamma globulin/Protein.total in 24 hour Urine by ElectrophoresisOrdered By: Rosie Chew on 76-19-7041Ygspj globulin Elph (24H U) [Mass fraction]19.8 %.[facility] – JacksonGlobulin Calc (S) [Mass/Vol]Ordered By: Rosie Chew on 49-63-0018Ftbhzcmy (S) [Mass/Vol]2.6 g/dLHolzer Medical Center – JacksonHematocrit Auto (Bld) [Volume fraction]Ordered By: Rosie Chew on 84-84-7065Pgxxhavasx (Bld) [Volume fraction]23.9 %38.8-50.0[facility] – JacksonHemoglobin [Mass/volume] in BloodOrdered By: Rosie Chew on 16-77-0830Seiksfklcq (Bld) [Mass/Vol]8.1 g/dL13.0-17.0[facility] – JacksonIgA [Mass/volume] in Serum or PlasmaOrdered By: Rosie Chew on 92-24-1105WaA [Mass/Vol]190 mg/qG84-773TvqqqvnplHolzer Medical Center – JacksonIgG [Mass/volume] in Serum or PlasmaOrdered By: Rosie Chew on 69-57-2331OlH [Mass/Vol]996 mg/lC265-9604SdhznflxbHolzer Medical Center – JacksonIgM [Mass/volume] in Serum or PlasmaOrdered By: Rosie Chew on 94-23-1947NgQ [Mass/Vol]37 mg/sQ55-018 [facility] – JacksonComment on above:Performed at: [facility] [id number] Director: Melchor Agrawal PhD, Phone: [phone] for UrineOrdered By: Rosie Chew on 65-79-1917Mwipcuuzxcuwbg Immunofixation (U) [Interp]Comment:.[facility] – JacksonComment on above:Presence of monoclonal protein is unclear at this time. Suggestrepeat in 3 to 6 months if clinically indicated.Performed at: [facility] [id number] Director: Melchor Agrawal PhD, Phone: [phone] light chains.kappa.free [Mass/volume] in SerumOrdered By: Rosie Chew on 08-20-2022 Immunoglobulin light chains.kappa.free (S) [Mass/Vol]42.0 mg/L3.3-19.4FChildren's Hospital for RehabilitationImmunoglobulin light chains.kappa.free/Immunoglobulin light chains.lambda.free [MassOrdered By: Rosie Chew on 08-20-2022 Immunoglobulin light chains.kappa.free/Immunoglobulin light chains.lambda.free (S) [Mass ratio]1.740.26-1.65[facility] – JacksonComment on above: Performed at: [facility] [id number] Director: Melchor Agrawal PhD, Phone: [phone] light chains.lambda.free [Mass/volume] in Serum or PlasmaOrdered By: Rosie Chew on 29-77-7112Zwonzxiogkwkkx light chains.lambda.free [Mass/Vol]24.1 mg/L5.7-26.3FChildren's Hospital for RehabilitationLactate dehydrogenase measurement (enzymatic activity/volume)Ordered By: Rosie Chew on 55-23-4404JYF (Unsp spec) [Catalytic activity/Vol]123 U/F16-650YxuivzbwrHolzer Medical Center – JacksonLeukocytes [#/volume] corrected for nucleated erythrocytes in Blood by Automated counOrdered By: Rosie Chew on 42-51-6480CQR corrected for nucl RBC Auto (Bld) [#/Vol]5.9 10*3/uL4.1-10.5FChildren's Hospital for Rehabilitation Lymphocytes Auto (Bld) [#/Vol]Ordered By: Rosie Chew on 08-20-2022 Lymphocytes (Bld) [#/Vol]1.2 10*3/uL1.00-4.8[facility] Lymphocytes/100 WBC Auto (Bld)Ordered By: Rosie Chew on 08-20-2022 Lymphocytes/100 WBC (Bld)20.5 %.[facility] – JacksonMCH Auto (RBC) [Entitic mass]Ordered By: Rosie Chew on 18-23-0847YLY (RBC) [Entitic mass]38.3 pg27.5-35.2FChildren's Hospital for RehabilitationMCHC Auto (RBC) [Mass/Vol] Ordered By: Rosie Chew on 80-27-1104SNQH (RBC) [Mass/Vol]33.7 g/dL 32.5-35.6FChildren's Hospital for RehabilitationMCV Auto (RBC) [Entitic vol]Ordered By: Rosie Chew on 28-24-1359XXM (RBC) [Entitic vol]113.6 fL83.5-101 [facility] – JacksonMacrocytes LM Ql (Bld)Ordered By: Rosie Chew on 44-47-5151Zfbludgrqa Ql (Bld)ModerateHolzer Medical Center – JacksonMonocytes Auto (Bld) [#/Vol]Ordered By: Rosie Chew on 08-20-2022 Monocytes (Bld) [#/Vol]0.4 10*3/uL0.0-0.8[facility] Monocytes/100 WBC Auto (Bld)Ordered By: Rosie Chew on 08-20-2022 Monocytes/100 WBC (Bld)6.9 %.[facility] – JacksonNeutrophils Auto (Bld) [#/Vol]Ordered By: Rosie Chew on 49-80-3427Brcdecyhdco (Bld) [#/Vol]4.1 10*3/uL1.8-7.7FChildren's Hospital for RehabilitationNeutrophils/100 WBC Auto (Bld)Ordered By: Rosie Chew on 50-78-0236Jhgwxjcxbbo/100 WBC (Bld) 69.2 %.[facility] – JacksonNo Panel InformationOrdered By: Rosie Chew on 06-57-3321Srpjl Random Prot Electrophor NoteSee comment.[facility] – JacksonComment on above:Protein electrophoresis scan will follow via computer,mail, or camera supervisor delivery.Performed at: [facility] [place] [id number] Director: Melchor Agrawal PhD, Phone: [phone] GFR ()34 mL/MinHolzer Medical Center – JacksonComment on above:GFR estimated reference range: According to KDOQI guidelines, <60 ml/min/1.73m2 is sufficient todiagnose a patient with chronic kidney disease.Pharmacy Creatinine Clearance (Chem30.39[facility] – JacksonProtein Electrophoresis M-SpikeNot observed g/dLNot Observed [facility] – JacksonProtein Electrophoresis NoteSee comment. [facility] – JacksonComment on above:Protein electrophoresis scan will follow via computer,mail, or camera supervisor delivery.Performed at: [facility] [place], [place] [id number] Director: Melchor Agrawal PhD, Phone: [phone] erythrocytes [Presence] in Blood by Automated count Ordered By: Rosie Chew on 58-40-7986Btamvykjn RBC Auto Ql (Bld)0.1 /100{WBC}0-0.5FChildren's Hospital for RehabilitationPlatelet adequacy [Presence] in Blood by Light microscopyOrdered By: Rosie Chew on 91-25-9150Mqhbewwgi LM Ql (Bld)DecreasedNormalHolzer Medical Center – JacksonPlatelet mean volume Auto (Bld) [Entitic vol]Ordered By: Rosie Chew on 17-38-9432Ycjogspw mean volume (Bld) [Entitic vol]8.7 fL6.6-10.1FChildren's Hospital for Rehabilitation Platelet morphology finding [Identifier] in BloodOrdered By: Rosie Chew on 23-08-7370Ucggzkxo morphology finding Nom (Bld)NormalNormalHolzer Medical Center – JacksonPlatelets Auto (Bld) [#/Vol]Ordered By: Rosie Chew on 14-76-8713Hhftzqmgr (Bld) [#/Vol]101 10*3/rO944-876XjvexmubzHolzer Medical Center – JacksonPoikilocytosis [Presence] in Blood by Light microscopy Ordered By: Rosie Chew on 16-79-0656Twtzdvbrnkcttj LM Ql (Bld)Moderate [facility] – JacksonPolychromasia [Presence] in Blood by Light microscopyOrdered By: Rosie Chew on 89-36-6507Zbsfumqqrzmof LM Ql (Bld) SlightHolzer Medical Center – JacksonProtein [Mass/volume] in Serum or Plasma Ordered By: Rosie Chew on 14-32-7683Jdnlywt [Mass/Vol]6.0 g/dL6.1-7.9 [facility] – JacksonProtein [Mass/Vol]6.4 g/dL6.0-8.5FChildren's Hospital for RehabilitationProtein [Mass/volume] in UrineOrdered By: Rosie Chew on 94-52-4647Olfqeuh (U) [Mass/Vol]49.4 mg/dLNot Estab.[facility] – JacksonProtein.monoclonal/Protein.total in 24 hour Urine by ElectrophoresisOrdered By: Rosie Chew on 96-50-5338Rojfwkc.monoclonal Elph (24H U) [Mass fraction]Comment: %Not ObservedHolzer Medical Center – JacksonComment on above:UPE shows an asymmetrical gamma.RBC Auto (Bld) [#/Vol] Ordered By: Rosie Chew on 52-74-1653RKY (Bld) [#/Vol]2.11 10*6/uL 3.90-5.60[facility] morphologyOrdered By: Rosie Chew on 77-19-9326JWO morphology finding Nom (Bld)N/AFOhio State Harding Hospitalerum globulin measurement (mass/volume)Ordered By: Rosie Chew on 59-14-3612Xgimyhuk (S) [Mass/Vol]3.1 g/dL2.2-3.9Toledo Hospitalerum or plasma alanine aminotransferase measurement without P-5'-P (enzymatic activiOrdered By: Rosie Chew on 09-44-1027PZR No additional P-5'-P [Catalytic activity/Vol]18 U/Z45-39MtgcuaufaToledo Hospitalerum or plasma albumin/globulin mass ratioOrdered By: Rosie Chew on 05-85-2166Npykldw/Globulin [Mass ratio]1.3 {ratio}[facility] – JacksonAlbumin/Globulin [Mass ratio]1.1 {ratio}0.7-1.7FOhio State Harding Hospitalerum or plasma alkaline phosphatase measurement (enzymatic activity/volume)Ordered By: Rosie Chew on 98-50-5737AZR [Catalytic activity/Vol]93 U/W46-63WwytoikxrToledo Hospitalerum or plasma alpha 1 globulin measurement by electrophoresis (mass/volume)Ordered By: Rosie Chew on 56-69-6625Xdsme 1 globulin Elph [Mass/Vol]0.3 g/dL0.0-0.4 [facility] Hospitalerum or plasma alpha 2 globulin measurement by electrophoresis (mass/volume)Ordered By: Rosie Chew on 12-98-9037Dohdu 2 globulin Elph [Mass/Vol]0.9 g/dL0.4-1.0T[facility]edo Hospitalerum or plasma anion gap determinationOrdered By: Rosie Chew on 08-20-2022 Anion gap [Moles/Vol]12.7 mmol/L6.0-15.0T[facility]edo Hospitalerum or plasma aspartate aminotransferase measurement (enzymatic activity/volume) Ordered By: Rosie Chew on 65-28-5497UCE [Catalytic activity/Vol]19 U/L 10-42T[facility]edo Hospitalerum or plasma beta globulin measurement by electrophoresis (mass/volume)Ordered By: Rosie Chew on 08-20-2022 Beta globulin Elph [Mass/Vol]0.9 g/dL0.7-1.3FChildren's Hospital for Rehabilitation Serum or plasma calcium measurement (mass/volume)Ordered By: Rosie Chew on 88-48-0265Happflm [Mass/Vol]9.1 mg/dL8.2-10.2FOhio State Harding Hospitalerum or plasma chloride measurement (moles/volume)Ordered By: Rosie Chew on 33-29-5300Xtfffqtz [Moles/Vol]105 mmol/P74-140KsfizifccToledo Hospitalerum or plasma gamma globulin measurement by electrophoresis (mass/volume)Ordered By: Rosie Chew on 31-03-8214Dgjjv globulin Elph [Mass/Vol]0.9 g/dL0.4-1.8[facility]edo Hospitalerum or plasma glucose measurement (mass/volume)Ordered By: Rosie Chew on 08-20-2022 Glucose [Mass/Vol]156 mg/lB85-367MmjuuoytrHolzer Medical Center – JacksonComment on above:ADA recommended reference rangeRandom Glucose Reference Range is dependent on time and content of last meal. Glucose of more than 200 mg/dL in a nonstressed, ambulatory subject supports the diagnosisof Diabetes Mellitus.Serum or plasma potassium measurement (moles/volume)Ordered By: Rosie Chew on 14-24-1442Hgroqbgah [Moles/Vol]5.9 mmol/L3.5-5.1FOhio State Harding Hospitalerum or plasma sodium measurement (moles/volume)Ordered By: Rosie Chew on 61-75-6700Qwshom [Moles/Vol]134 mmol/H667-821PidmphnihToledo Hospitalerum or plasma total bilirubin measurement (mass/volume)Ordered By: Rosie Chew on 91-22-6400Vajdmyrro [Mass/Vol]0.3 mg/dL0.3-1.2 [facility] Hospitalerum or plasma total carbon dioxide measurement (moles/volume)Ordered By: Rosie Chew on 86-41-8287TD2 [Moles/Vol]22.2 mmol/L22.0-30.0T[facility]edo Hospitalerum or plasma urea nitrogen measurement (mass/volume)Ordered By: Rosie Chew on 15-52-6844Tnrp nitrogen [Mass/Vol]28 mg/dL9-23[facility] Urine alpha 1 globulin/total protein by electrophoresisOrdered By: Rosie Chew on 70-61-8136Awnkg 1 globulin Elph (U) [Mass fraction]4.7 %. [facility] – JacksonUrine alpha 2 globulin/total protein ratio by electrophoresisOrdered By: Rosiesafia Chew on 44-92-9362Jiohv 2 globulin Elph (U) [Mass fraction]10.8 %.[facility] – JacksonUrine beta globulin measurement by electrophoresis (mass/volume)Ordered By: Rosiesafia Chew on 74-39-1993Cqwk globulin Elph (U) [Mass/Vol]17.6 %.[facility] – JacksonWBC Auto (Bld) [#/Vol]Ordered By: Rosie Chew on 99-36-7787NEE (Bld) [#/Vol]5.9 10*3/uL4.1-10.5FChildren's Hospital for Rehabilitation CULTURE URINEon 69-98-6746EMJIXXS URINECulture Observations: NO GROWTH.NormalThe [facility]ding County HospitalComment on above:Performed By: #### PTT, PT #### [facility] [address] [place] [address] Dr. Lydia MerrittPOINT OF CARE GLUCOSEon 28-10-0198Uddwlkj [Mass/Vol]194 mg/dL Critically mqzc50-316Vzq [facility] HospitalComment on above:Performed By: #### POCGLUC #### [facility] [address] [address] [address] Lydia Lester (CLEAN/CATCH) PRODUCTION OFFICER/MICRO IF IND.on 64-54-7306Rglomjjjs Ql (U) NegativeNormalNEGATIVEThe [facility] HospitalComment on above:Performed By: #### UACSIND, UMICRO #### [facility] [address] [address] [address] Yilan ChangClarity (U)CLOUDYAbnormalCLEARThLutheran HospitalComment on above:Performed By: #### UACSALISSON UMICRO #### [facility] [address] [address] [address] Lydia Hightower (U)LT. YELLOWNormalYELLOWCleveland Clinic FoundationComment on above:Performed By: #### UACSALISSON UMICRO #### [facility] [address] [address] [address] Lydia MerrittGlucose Ql (U)100 mg/dlAbnormalNEGMetroHealth Parma Medical Center Comment on above:Performed By: #### JUANCSALISSON UMICRO #### [facility] [address] [address] [address] Lydia MerrittHemoglobin Ql (U)LARGEAbnormalNEGMetroHealth Parma Medical Center Comment on above:Performed By: #### LIGIA UMICRO #### [facility] [address] [address] [address] Lydia Ruiz Ql (U)NegativeNormalNEGATIVECleveland Clinic FoundationComment on above:Performed By: #### LIGIA UMICRO #### [facility] [address] [address] [address] Lydia MerrittLEUKOCYTESMODERATEAbnormalNEGMetroHealth Parma Medical CenterComment on above:Performed By: #### LIGIA UMICRO #### [facility] [address] [address] [address] Lydia Snelltrite Ql (U)NegativeNormalNEGATIVECleveland Clinic FoundationComment on above:Performed By: #### UACSALISSON, UMICRO #### [facility] [address] [address] [address] Lydia MerrittpH (U)7.0 [pH]Normal5-9The [facility] HospitalComment on above: Performed By: #### UACSALISSON, UMICRO #### [facility] [address] [address] [address] Lydia MerrittSPEC GRAVITY1.197Roeuor1.005-<=1.025The [facility] HospitalComment on above:Performed By: #### LIGIA UMICRO #### [facility] [address] [place] [address] Dr. Lydia Lester PROTEIN>300AbnormalNEGATIVE/ TRACEThe [facility] HospitalComment on above:Performed By: #### LIGIA UMICRO #### [facility] [address] [place] [address] Dr. Lydia CUI INDINDICATEDNoLima City HospitalComment on above: Performed By: #### LIGIA ICRO #### [facility] [address] [place] [address] Dr. Lydia Garner Qn (U)0.2 {Caroline'U}/dLNormal0.2 - 1.0The [facility] on above:Performed By: #### GRISELDA STRONGICRO #### [facility] [address] [place] [address] Dr. Lydia Sevilla MICROSCOPIC ONLYon 91-27-2758SOOZXOIVYJDMWAhlevhlsQMKC SEEN The [facility] HospitalCommclaren flint on above:Performed By: #### PTT, PT #### [facility] [address] [place] [address] Dr. Lydia Hough identified Cx Nom (U)INDICATEDNoLima City HospitalCommclaren flint on above:Performed By: #### PTT, PT #### [facility] [address] [place] [address] Dr. Lydia De León SEENNormalNONE SEENCleveland Clinic FoundationCommclaren flint on above:Performed By: #### PTT, PT #### [facility] [address] [place] [address] Dr. Lydia Acosta LM Nom (Urine sed)NONE SEENNormalNONE SEENCleveland Clinic FoundationCommclaren flint on above:Performed By: #### PTT, PT #### [facility] [address] [place] [address] Dr. Freeman ChangEpithelial cells LM Ql (Urine sed)NONE SEENNormalNONE SEEN /RARE The [facility] on above:Performed By: #### PTT, PT #### [facility] [address] [place] [address] Dr. Lydia QuintanaUSEBONYE SEENNormalNONE SEENThe [facility] on above:Performed By: #### PTT, PT #### [facility] [address] [place] [address] Dr. Lydia Vo (U) [#/Vol]/uLAbnormal0-2The [facility] on above:Performed By: #### PTT, PT #### [facility] [address] [place] [address] Dr. Lydia Hernandez (U) [#/Vol]/uLAbnormalNONE SEENThe [facility] on above:Performed By: #### PTT, PT #### [facility] [address] [place] [address] Dr. Lydia Cai-19 PCR ([facility])on 34-28-9746YNTD-CoV-2 (COVID-19) RNA ERIN+probe Ql (Unsp spec)Not detectedNormalNOT DETECTEDThe [facility] Comment on above:Result Comment: When diagnostic testing is negative, the [...] for this test is supported by the [employer] Teacher of Health and Human Service's declaration that circumstances exist to justify the emergency use of in vitro diagnostics for the detection and/or diagnosis of the virus that causes COVID-19. This EUA will remain in effect for the duration of the COVID-19 declaration justifying emergency of IVDs, unless it is terminated or revoked by the FDA (after which the test may no longer be used).Performed By: #### PTT, PT #### [facility] [address] [place], [place] [address] Dr. Lydia MerrittAlbumin [Mass/volume] in Serum or PlasmaOrdered By: Brook Huddleston on 50-38-9499Kjxxrqn [Mass/Vol]3.0 g/dL3.2-5.5FChildren's Hospital for Rehabilitation Albumin [Mass/Vol]2.9 g/dL2.9-4.4FChildren's Hospital for Rehabilitation Albumin/Protein.total in 24 hour Urine by ElectrophoresisOrdered By: Brook Huddleston on 24-19-6034Bvxojkq Elph (24H U) [Mass fraction]35.7 %.[facility] – JacksonBasophils Auto (Bld) [#/Vol]Ordered By: Brook Huddleston on 07-21-2022 Basophils (Bld) [#/Vol]0.0 10*3/uL0.0-0.2FChildren's Hospital for Rehabilitation Basophils/100 WBC Auto (Bld)Ordered By: Brook Huddleston on 83-25-1148Jyvhwhwla/100 WBC (Bld)0.2 %.[facility] – JacksonCreatinine and Glomerular filtration rate.predicted panel (S/P/Bld)Ordered By: Brook Huddleston on 07-21-2022 Creatinine [Mass/Vol]1.95 mg/dL0.64-1.27[facility] Eosinophils Auto (Bld) [#/Vol]Ordered By: Brook Huddleston on 80-46-5235Pszqccwyikf (Bld) [#/Vol]0.1 10*3/uL0.0-0.45[facility] – JacksonEosinophils/100 WBC Auto (Bld)Ordered By: Brook Huddleston on 02-90-6432Agqrofibqhb/100 WBC (Bld)3.0 % .[facility] – JacksonErythrocyte distribution width Auto (RBC) [Ratio]Ordered By: Brook Huddleston on 89-40-1130Yyeolwfjjtp distribution width (RBC) [Ratio]17.1 %12.0-14.8[facility] – JacksonEstimated glomerular filtration rate (GFR) non- AmericanOrdered By: Brook Huddleston on 07-21-2022 GFR/1.73 sq M.predicted among non-blacks MDRD (S/P/Bld) [Vol rate/Area]34 mL/Min [facility] JacksonGamma globulin/Protein.total in 24 hour Urine by ElectrophoresisOrdered By: Brook Huddleston on 46-38-2803Odijb globulin Elph (24H U) [Mass fraction]18.6 %.[facility] – JacksonGlobulin Calc (S) [Mass/Vol]Ordered By: Brook Huddleston on 54-13-8287Egweaxof (S) [Mass/Vol]2.8 g/dL [facility] – JacksonHematocrit Auto (Bld) [Volume fraction]Ordered By: Brook Huddleston on 91-50-5636Ajvvkgxwvv (Bld) [Volume fraction]25.2 %38.8-50.0 [facility] – JacksonHemoglobin [Mass/volume] in BloodOrdered By: Brook Huddleston on 29-34-5370Cesmxxbbri (Bld) [Mass/Vol]8.6 g/dL13.0-17.0[facility] – JacksonIgA [Mass/volume] in Serum or PlasmaOrdered By: Brook Huddleston on 61-37-9129BwI [Mass/Vol]208 mg/dQ57-650HjtzimwxhHolzer Medical Center – JacksonIgG [Mass/volume] in Serum or PlasmaOrdered By: Brook Huddleston on 32-90-8008TsI [Mass/Vol]905 mg/iA028-9217ZsgfsntvaHolzer Medical Center – JacksonIgM [Mass/volume] in Serum or PlasmaOrdered By: Brook Huddleston on 41-09-0670NoE [Mass/Vol]24 mg/yZ95-656 [facility] – JacksonComment on above:Result confirmed on concentration.Performed at: [facility] [id number] Director: Melchor Agrawal PhD, Phone: [phone] for UrineOrdered By: Brook Huddleston on 27-65-0491Loznimmdugqljb Immunofixation (U) [Interp]See comment.[facility] – JacksonComment on above:No monoclonality detected.Performed at: [facility] [id number] Director: Melchor Agrawal PhD, Phone: [phone] Immunoglobulin light chains.kappa.free [Mass/volume] in SerumOrdered By: Brook Huddleston on 21-75-5076Ldwvjrkgknmdos light chains.kappa.free (S) [Mass/Vol]39.4 mg/L3.3-19.4FChildren's Hospital for RehabilitationImmunoglobulin light chains.kappa.free/Immunoglobulin light chains.lambda.free [MassOrdered By: Brook Huddleston on 72-68-9552Jqrbycdcpfupoz light chains.kappa.free/Immunoglobulin light chains.lambda.free (S) [Mass ratio]1.620.26-1.65[facility] – JacksonComment on above:Performed at: [employer] [facility] [address] [id number] Director: Melchor Agrawal PhD, Phone: [phone] Immunoglobulin light chains.lambda.free [Mass/volume] in Serum or PlasmaOrdered By: Brook Huddleston on 26-35-8460Xdwygjnxzpzdmg light chains.lambda.free [Mass/Vol] 24.3 mg/L5.7-26.3FChildren's Hospital for RehabilitationLactate dehydrogenase measurement (enzymatic activity/volume)Ordered By: Brook Huddleston on 80-17-0527XEQ (Unsp spec) [Catalytic activity/Vol]145 U/O76-020WagawvngcHolzer Medical Center – JacksonLeukocytes [#/volume] corrected for nucleated erythrocytes in Blood by Automated counOrdered By: Brook Huddleston on 25-06-1951OJF corrected for nucl RBC Auto (Bld) [#/Vol]3.9 10*3/uL4.1-10.5FChildren's Hospital for RehabilitationLymphocytes Auto (Bld) [#/Vol]Ordered By: Brook Huddleston on 46-33-3400Ethshsnjxto (Bld) [#/Vol] 0.5 10*3/uL1.00-4.8[facility] – JacksonLymphocytes/100 WBC Auto (Bld)Ordered By: Brook Huddleston on 17-15-1485Ujhgzmporht/100 WBC (Bld)13.1 %. [facility] Auto (RBC) [Entitic mass]Ordered By: Brook Huddleston on 33-44-5620SKC (RBC) [Entitic mass]37.2 pg27.5-35.2FChildren's Hospital for RehabilitationMCHC Auto (RBC) [Mass/Vol]Ordered By: Brook Huddleston on 21-64-5841WHBQ (RBC) [Mass/Vol]34.0 g/dL32.5-35.6FChildren's Hospital for RehabilitationMCV Auto (RBC) [Entitic vol]Ordered By: Brook Huddleston on 22-43-2442XJR (RBC) [Entitic vol] 109.5 fL83.5-101[facility] – JacksonMonocytes Auto (Bld) [#/Vol] Ordered By: Brook Huddleston on 25-57-3785Wvouniqpz (Bld) [#/Vol]0.5 10*3/uL0.0-0.8 [facility] JacksonMonocytes/100 WBC Auto (Bld)Ordered By: Brook Huddleston on 28-43-9699Ybxadzqdb/100 WBC (Bld)13.2 %.[facility] – JacksonNeutrophils Auto (Bld) [#/Vol]Ordered By: Brook Huddleston on 07-21-2022 Neutrophils (Bld) [#/Vol]2.7 10*3/uL1.8-7.7FChildren's Hospital for Rehabilitation Neutrophils/100 WBC Auto (Bld)Ordered By: Brook Huddleston on 75-53-0172Bztijyhgzwz/100 WBC (Bld)70.5 %.[facility] – JacksonNo Panel InformationOrdered By: Brook Huddleston on 63-37-0273Dzclcpcpj GFR ()41 mL/MinHolzer Medical Center – JacksonComment on above:GFR estimated reference range: According to KDOQI guidelines, <60 ml/min/1.73m2 is sufficient todiagnose a patient with chronic kidney disease.Pharmacy Creatinine Clearance (Chem35.77[facility] – JacksonProtein Electrophoresis M-SpikeComment: g/dLNot Observed [facility] – JacksonComment on above:SPE shows asymmetrical beta. Protein Electrophoresis NoteSee comment.[facility] – JacksonComment on above:Protein electrophoresis scan will follow via computer,mail, or camera supervisor delivery.Performed at: [facility] [employer] [id number] Director: Melchor Agrawal PhD, Phone: [phone] Random Prot Electrophor NoteSee comment.[facility] – JacksonComment on above: Protein electrophoresis scan will follow via computer,mail, or camera supervisor delivery.Performed at: [address] [id number] Director: Melchor Agrawal PhD, Phone: [phone] erythrocytes [Presence] in Blood by Automated countOrdered By: Brook Huddleston on 72-23-7797Mvxtdzcxt RBC Auto Ql (Bld)0.1 /100{WBC}0-0.5FChildren's Hospital for RehabilitationPlatelet mean volume Auto (Bld) [Entitic vol]Ordered By: Brook Huddleston on 63-02-6761Zoxgdswy mean volume (Bld) [Entitic vol]8.3 fL6.6-10.1FChildren's Hospital for RehabilitationPlatelets Auto (Bld) [#/Vol]Ordered By: Brook Huddleston on 09-85-3527Utctexzqs (Bld) [#/Vol]101 10*3/bA253-178QqkxjgsoqHolzer Medical Center – JacksonProtein [Mass/volume] in Serum or PlasmaOrdered By: Brook Huddleston on 39-11-6616Ptrbczk [Mass/Vol]5.8 g/dL6.1-7.9[facility] Protein [Mass/Vol]5.9 g/dL6.0-8.5FChildren's Hospital for RehabilitationProtein [Mass/volume] in UrineOrdered By: Brook Huddleston on 55-29-4935Vjsiiyt (U) [Mass/Vol] 95.7 mg/dLNot Estab.[facility] Protein.monoclonal/Protein.total in 24 hour Urine by ElectrophoresisOrdered By: Brook Huddleston on 69-59-5085Kmjkeef.monoclonal Elph (24H U) [Mass fraction]Comment: % Not ObservedHolzer Medical Center – JacksonComment on above:UPE shows asymmetrical beta and gamma regions.RBC Auto (Bld) [#/Vol]Ordered By: Brook Huddleston on 46-45-3709ZIB (Bld) [#/Vol]2.30 10*6/uL3.90-5.60T[facility]edo Hospitalerum globulin measurement (mass/volume)Ordered By: Brook Huddleston on 28-13-5774Ifsslofl (S) [Mass/Vol]3.0 g/dL2.2-3.9Toledo Hospitalerum or plasma alanine aminotransferase measurement without P-5'-P (enzymatic activiOrdered By: Brook Huddleston on 01-63-7841IRN No additional P-5'-P [Catalytic activity/Vol]37 U/H20-72FdaheqocpToledo Hospitalerum or plasma albumin/globulin mass ratioOrdered By: Brook Huddleston on 07-21-2022 Albumin/Globulin [Mass ratio]1.1 {ratio}[facility] Albumin/Globulin [Mass ratio]1.0 {ratio}0.7-1.7FChildren's Hospital for Rehabilitation Serum or plasma alkaline phosphatase measurement (enzymatic activity/volume) Ordered By: Brook Huddleston on 85-87-1258RQR [Catalytic activity/Vol]110 U/L32-92 [facility] Hospitalerum or plasma alpha 1 globulin measurement by electrophoresis (mass/volume)Ordered By: Brook Huddleston on 86-34-5145Uqrck 1 globulin Elph [Mass/Vol]0.4 g/dL0.0-0.4FOhio State Harding Hospitalerum or plasma alpha 2 globulin measurement by electrophoresis (mass/volume)Ordered By: Brook Huddleston on 28-31-8392Qgimn 2 globulin Elph [Mass/Vol]1.0 g/dL0.4-1.0[facility] Hospitalerum or plasma anion gap determinationOrdered By: Brook Huddleston on 59-66-3378Snapj gap [Moles/Vol]15.6 mmol/L6.0-15.0[facility]edo Hospitalerum or plasma aspartate aminotransferase measurement (enzymatic activity/volume)Ordered By: Brook Huddleston on 38-36-0057JDD [Catalytic activity/Vol] 27 U/J37-78PbwgfsyjrToledo Hospitalerum or plasma beta globulin measurement by electrophoresis (mass/volume)Ordered By: Brook Huddleston on 07-21-2022 Beta globulin Elph [Mass/Vol]0.8 g/dL0.7-1.3FChildren's Hospital for Rehabilitation Serum or plasma calcium measurement (mass/volume)Ordered By: Brook Huddleston on 53-77-9314Wrpitfa [Mass/Vol]8.6 mg/dL8.2-10.2FChildren's Hospital for Rehabilitation Serum or plasma chloride measurement (moles/volume)Ordered By: Brook Huddleston on 22-10-6708Oumorvjj [Moles/Vol]100 mmol/B19-181ZvynwxicvHolzer Medical Center – Jackson Serum or plasma gamma globulin measurement by electrophoresis (mass/volume) Ordered By: Brook Huddleston on 95-42-3101Ftdrs globulin Elph [Mass/Vol]0.8 g/dL0.4-1.8 [facility] Hospitalerum or plasma glucose measurement (mass/volume)Ordered By: Brook Huddleston on 71-15-7360Zwaimgm [Mass/Vol]191 mg/dL 70-100[facility] – JacksonComment on above:ADA recommended reference rangeRandom Glucose Reference Range is dependent on time and content of last meal. Glucose of more than 200 mg/dL in a nonstressed, ambulatory subject supports the diagnosisof Diabetes Mellitus.Serum or plasma potassium measurement (moles/volume)Ordered By: Brook Huddleston on 34-05-5697Iakhwcggj [Moles/Vol]4.7 mmol/L3.5-5.1FOhio State Harding Hospitalerum or plasma sodium measurement (moles/volume)Ordered By: Brook Huddleston on 31-58-4630Nvfkkt [Moles/Vol]128 mmol/F525-683HoxdgtiqvToledo Hospitalerum or plasma total bilirubin measurement (mass/volume)Ordered By: Brook Huddleston on 07-21-2022 Bilirubin [Mass/Vol]0.7 mg/dL0.3-1.2FOhio State Harding Hospitalerum or plasma total carbon dioxide measurement (moles/volume)Ordered By: Brook Huddleston on 96-63-1053KO5 [Moles/Vol]17.1 mmol/L22.0-30.0[facility] Serum or plasma urea nitrogen measurement (mass/volume)Ordered By: Brook Huddleston on 43-46-9219Vevt nitrogen [Mass/Vol]26 mg/dL9-23[facility] Urine alpha 1 globulin/total protein by electrophoresisOrdered By: Brook Huddleston on 52-34-9964Gwxgz 1 globulin Elph (U) [Mass fraction]6.5 %.[facility] – JacksonUrine alpha 2 globulin/total protein ratio by electrophoresis Ordered By: Brook Huddleston on 80-96-9934Bimzk 2 globulin Elph (U) [Mass fraction]18.3 %.[facility] – JacksonUrine beta globulin measurement by electrophoresis (mass/volume)Ordered By: Brook Flaquito on 05-30-4939Fapd globulin Elph (U) [Mass/Vol]20.8 %.[facility] – JacksonWBC Auto (Bld) [#/Vol]Ordered By: Brook Huddleston on 09-02-3401EJR (Bld) [#/Vol]3.9 10*3/uL4.1-10.5 [facility] – JacksonCBC AUTO DIFFon 78-82-0039GCOF #0.0 103/ul Normal0.0-0.1The [facility] HospitalComment on above:Performed By: #### PTT, PT #### [facility] [address] [place] [address] Dr. Lydia MerrittBasophils/100 WBC (Bld)0.4 %Normal0.2-2.0The [facility] Comment on above:Performed By: #### PTT, PT #### [facility] [address] [place] [address] Dr. Lydia Mars #0.4 103/ulNormal0.0-0.7The [facility] HospitalComment on above: Performed By: #### PTT, PT #### [facility] [address] [place] [address] Dr. Lydia Moyaosinophils/100 WBC (Bld)7.6 %Critically high0.9-7.0The [facility] HospitalComment on above:Performed By: #### PTT, PT #### [facility] [address] [place] [address] Dr. Lydia Moyarythrocyte distribution width (RBC) [Ratio]16.0 %Critically high 11.0-15.0The [facility] HospitalComment on above:Performed By: #### PTT, PT #### [facility] [address] [place] [address] Dr. Lydia MerrittHematocrit (Bld) [Volume fraction]26.9 %Critically low42.0-54.0 The [facility] HospitalComment on above:Performed By: #### PTT, PT #### [facility] [address] [address] [address] Lydia MerrittHemoglobin (Bld) [Mass/Vol]9.0 g/dLCritically low14.0-18.0The [facility] HospitalComment on above:Performed By: #### PTT, PT #### [facility] [address] [place] [address] Dr. Lydia Shafer #0.02 10e3/ulNormal0.00-0.03The [facility] HospitalComment on above:Performed By: #### PTT, PT #### [facility] [address] [place] [address] Dr. Lydia Shafer %0.4 %Normal0.0-0.5The [facility] HospitalComment on above: Performed By: #### PTT, PT #### [facility] [address] [place] [address] Dr. Lydia Roa #0.6 103/ulCritically low1.2-3.8The [facility] Comment on above:Performed By: #### PTT, PT #### [facility] [address] [place] [address] Dr. Lydia Robledohocytes/100 WBC (Bld)12.4 %Critically low20.5-60.0The [facility] HospitalComment on above:Performed By: #### PTT, PT #### [facility] [address] [place] [address] Dr. Lydia RomeroUAL DIFF REQNONormalThe [facility] HospitalComment on above: Performed By: #### PTT, PT #### [facility] [address] [place] [address] Dr. Lydia Jacobson (RBC) [Entitic mass]37.3 pgCritically high25.9-34.0The [facility] HospitalComment on above:Performed By: #### PTT, PT #### [facility] [address] [place] [address] Dr. Lydia Short (RBC) [Mass/Vol]33.5 g/gPMgpsxz50.9-35.2The [facility] HospitalComment on above:Performed By: #### PTT, PT #### [facility] [address] [place] [address] Dr. Lydia Guillen (RBC) [Entitic vol]111.6 fLCritically high80.0-94.0The [facility] HospitalComment on above:Result Comment: MACROCYTOSIS 2+Performed By: #### PTT, PT #### [facility] [address] [place] [address] Dr. Lydia Dalton #0.5 103/ulNormal0.3-0.8The [facility] HospitalComment on above:Performed By: #### PTT, PT #### [facility] [address] [place] [address] Dr. Lydia Luqueocytes/100 WBC (Bld)10.8 %Normal1.7-12.0[facility] Comment on above:Performed By: #### PTT, PT #### [facility] [address] [place] [address] Dr. Lydia Sanz #3.2 103/ulNormal1.4-6.5The [facility] HospitalComment on above:Performed By: #### PTT, PT #### [facility] [address] [place] [address] Dr. Lydia Laurenutrophils/100 WBC (Bld)68.4 %Pghzbk78.0-75.0The [facility] HospitalComment on above:Performed By: #### PTT, PT #### [facility] [address] [place] [address] Dr. Lydia Mac mean volume (Bld) [Entitic vol]10.1 fLNormal9.5-13.5The [facility] HospitalComment on above:Performed By: #### PTT, PT #### [facility] [address] [place] [address] Dr. Lydia JimenezT110 103/ulCritically pyl320-460Pox [facility] HospitalComment on above:Performed By: #### PTT, PT #### [facility] [address] [place] [address] Dr. Lydia MerrittRBC2.41 106/ulCritically low4.70-6.10The [facility] HospitalComment on above:Performed By: #### PTT, PT #### [facility] [address] [place] [address] Dr. Lydia MerrittWBC4.6 103/ulNormal4.0-11.0The [facility] HospitalComment on above: Performed By: #### PTT, PT #### [facility] [address] [place] [address] Dr. Lydia MerrittPROF CHEM 8 (BAS METB)on 78-94-1393Maenk gap [Moles/Vol]11.9 mmol/LNormalThe [facility] HospitalComment on above:Performed By: #### BMP #### [facility] [address] [place] [address] Dr. Lydia MerrittCalcium [Mass/Vol]9.0 mg/dLNormal8.5-10.1[facility] Comment on above:Performed By: #### BMP #### [facility] [address] [place] [address] Dr. Lydia MerrittChloride [Moles/Vol]105 mmol/IFeoflq86-229Lex [facility] Comment on above:Performed By: #### BMP #### [facility] [address] [place] [address] Dr. Lydia MerrittCO2 [Moles/Vol]25.2 mmol/ZDaakpa88.0-32.0[facility] Comment on above:Performed By: #### BMP #### [facility] [address] [place] [address] Dr. Lydia MerrittCreatinine [Mass/Vol]1.71 mg/dLCritically high0.70-1.30The [facility] HospitalComment on above:Performed By: #### BMP #### [facility] [address] [place] [address] Dr. Freeman ChangEGFR-AF YDXUOKUF60 mL/min/1.50e5Iqvuoyvbln low>=60The [facility] HospitalComment on above:Performed By: #### BMP #### [facility] [address] [address] [address] Lydia MoyaGFR-NON AF UHSTTGUZ05 mL/min/1.96d5Txnmvsrhhv low>=60The [facility] on above:Performed By: #### BMP #### [facility] [address] [address] [address] Lydia MerrittGlucose [Mass/Vol]127 mg/dLCritically rkfo09-021Vjs Holzer Hospitalment on above:Performed By: #### BMP #### [facility] [address] [address] [address] Lydia MerrittPotassium [Moles/Vol]5.1 mmol/LNormal3.5-5.1[facility] Comment on above:Performed By: #### BMP #### [facility] [address] [address] [address] Lydia MerrittSodium [Moles/Vol]137 mmol/DBhrmzj699-309Ckt [facility] Comment on above:Performed By: #### BMP #### [facility] [address] [address] [address] Lydia MerrittUrea nitrogen [Mass/Vol]23.0 mg/dLCritically high7.0-18.0The [facility] HospitalCommclaren flint on above:Performed By: #### BMP #### [facility] [address] [address] [address] Lydia MerrittUrea nitrogen/Creatinine [Mass ratio]13.5 mg/mgNoLima City HospitalComment on above:Performed By: #### BMP #### [facility] [address] [address] [address] Lydia MerrittPROTIMEon 73-63-6941GUG Coag (PPP) [Relative time]0.97 {INR} NormalLima City Hospital on above:Performed By: #### PTT, PT #### [facility] [address] [address] [address] Lydia Mackenzie GUIDELINESSEE BELOWCommunity Memorial HospitalComment on above:Result Comment: DESIRED INR: 2.0 - 3.0 CONDITIONS NOT LISTED BELOW 2.5 - 3.5 FOR PROSTHETIC HEART VALVE REPLACEMENT 2.5 - 3.5 RECURRENT THROMBOSIS Performed By: #### PTT, PT #### [facility] [address] [place] [address] [address] [address] Lydia Atkinson Coag (PPP) [Time]10.5 sNormal9.0-11.6The [facility] Comment on above:Performed By: #### PTT, PT #### [facility] [address] [address] [address] Lydia AtkinsonTon 09-17-6017sIJD Coag (Bld) [Time]27.1 wRpmxsa36.3-36.2The [facility] HospitalComment on above:Performed By: #### PTT, PT #### [facility] [address] [place] [address] [address] [address] Lydia Banks BLADDERon 46-54-5924GO BLADDEREXAMINATION: US BLADDER HISTORY: Lower urinary tract symptoms [...] Electronically authenticated by: CHAD BURNETTE Date: 2022-07-17 17:10[facility] HospitalXR CHEST 2 Von [id number] CHEST 2 VEXAM: Frontal and lateral chest HISTORY: . Benign prostatic hyperplasia . COMPARISON: 03/04/2020 TECHNIQUE: Frontal and lateral chest FINDINGS: Heart and vascularity are unremarkable. Lungs are free of focal infiltrates. Atherosclerotic changes of the thoracic aorta are noted. Early spondylosis of the spine is noted. IMPRESSION: No acute heart or lung disease identified. Electronically authenticated by: CHAD PENA Date: 2022-07-17 12:21[facility] HospitalClinic Note - Heme Oncon 57-79-3711Ozfctv Note - Heme OncCancer History: Treatment Synopsis: Mr Mills was initially referred from Dr. 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 Hospital course notable for 8 of 8 blood cultures growing MSSA, ECHO negative for vegetation. 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 ONC - Presented with light chain nephropathy in February 2020. - At the time of diagnosis: Free [place] Light Chain was 1200 mg/dL; M Anselmo IgG [place] P (more content not included)...NormalHealthSouth - Rehabilitation Hospital of Toms RiverAlbumin [Mass/volume] in Serum or PlasmaOrdered By: Brook Huddleston on 36-47-6370Eucbskc [Mass/Vol]3.900180912563 g/dLHolzer Medical Center – JacksonComment on above: Reference: 2.9-4.4Albumin/Protein.total in 24 hour Urine by Electrophoresis Ordered By: Brook Huddleston on 37-40-2348Tckjukl Elph (24H U) [Mass fraction]40.2 %. [facility] – JacksonAnisocytosis LM Ql (Bld)Ordered By: Brook Huddleston on 66-90-3054Wabyynhwdqxq Ql (Bld)SlightHolzer Medical Center – Jackson Basophils Auto (Bld) [#/Vol]Ordered By: Brook Huddleston on 85-47-5941Avuhjfgqe (Bld) [#/Vol]0.0 10*3/uL0.0-0.2FChildren's Hospital for RehabilitationBasophils/100 WBC Auto (Bld)Ordered By: Brook Huddleston on 37-19-0859Juazrpwnj/100 WBC (Bld)0.5 %.[facility] – JacksonBody fluid albumin measurement (mass/volume)Ordered By: Brook Huddleston on 33-61-0709Bosmtnd (Body fld) [Mass/Vol]3.3 g/dL3.2-5.5FChildren's Hospital for RehabilitationCreatinine and Glomerular filtration rate.predicted panel (S/P/Bld)Ordered By: Brook Huddleston on 65-97-6510Fnvzqmvysg [Mass/Vol]2.40 mg/dL 0.64-1.27[facility] – JacksonEosinophils Auto (Bld) [#/Vol]Ordered By: Brook Huddleston on 48-64-9857Oyvjujkmwzb (Bld) [#/Vol]0.6 10*3/uL0.0-0.45[facility] – JacksonEosinophils/100 WBC Auto (Bld)Ordered By: Brook Huddleston on 35-09-6598Gclytwacvpw/100 WBC (Bld)12.4 %.[facility] Erythrocyte distribution width Auto (RBC) [Ratio]Ordered By: Brook Huddleston on 09-37-7019Fadwfawhpjd distribution width (RBC) [Ratio]15.3 %12.0-14.8[facility] – JacksonEstimated glomerular filtration rate (GFR) non- AmericanOrdered By: Brook Huddleston on 68-14-7386JXM/1.73 sq M.predicted among non- blacks MDRD (S/P/Bld) [Vol rate/Area]26 mL/MinHolzer Medical Center – Jackson Gamma globulin/Protein.total in 24 hour Urine by ElectrophoresisOrdered By: Brook Huddleston on 13-66-1124Ispsu globulin Elph (24H U) [Mass fraction]23.3 %.[facility] – JacksonGlobulin Calc (S) [Mass/Vol]Ordered By: Brook Huddleston on 01-18-1783Rotknqug (S) [Mass/Vol]2.8 g/dLHolzer Medical Center – Jackson Hematocrit Auto (Bld) [Volume fraction]Ordered By: Brook Huddleston on 06-13-2022 Hematocrit (Bld) [Volume fraction]30.5 %38.8-50.0[facility] – JacksonHemoglobin [Mass/volume] in BloodOrdered By: Brook Huddleston on 06-13-2022 Hemoglobin (Bld) [Mass/Vol]10.2 g/dL13.0-17.0[facility] IgA [Mass/volume] in Serum or PlasmaOrdered By: Brook Huddleston on 57-03-2362YwP [Mass/Vol]232 mg/dLHolzer Medical Center – JacksonComment on above:Reference: 61-437IgG [Mass/volume] in Serum or PlasmaOrdered By: Brook Huddleston on 58-23-4571UtZ [Mass/Vol]972 mg/dLHolzer Medical Center – JacksonComment on above:Reference: 603-1613IgM [Mass/volume] in Serum or PlasmaOrdered By: Brook Huddleston on 06-13-2022 IgM [Mass/Vol]30 mg/dLHolzer Medical Center – JacksonComment on above: Reference: 15-143Immunofixation for UrineOrdered By: Brook Huddleston on 06-13-2022 Interpretation Immunofixation (U) [Interp]Comment:.[facility] – JacksonComment on above:Presence of monoclonal protein is unclear at this time. Suggestrepeat in 3 to 6 months if clinically indicated.Performed at: [facility] [id number] Director: Melchor Agrawal PhD, Phone: [phone] - Hematology and Cell countsOrdered By: Brook Huddleston on 34-60-5602Ulgrknoac RBC/100 WBC (Bld) [Ratio]0.3 %0-0.5 [facility] – JacksonWBC (Bld) [#/Vol]5.4 10*3/uL4.5-11.0[facility] – JacksonLactate dehydrogenase measurement (enzymatic activity/volume)Ordered By: Brook Huddleston on 22-81-3223CQP (Unsp spec) [Catalytic activity/Vol]125 U/D42-274GfrrpujymHolzer Medical Center – JacksonLymphocytes Auto (Bld) [#/Vol]Ordered By: Brook Huddleston on 28-10-0317Sxztolmdfqt (Bld) [#/Vol]0.9 10*3/uL1.00-4.8[facility] – JacksonLymphocytes/100 WBC Auto (Bld) Ordered By: Brook Huddleston on 62-79-3403Rpdqacghxhg/100 WBC (Bld)18.9 %.[facility] CenterH Auto (RBC) [Entitic mass]Ordered By: Brook Huddleston on 60-94-4534VXE (RBC) [Entitic mass]36.7 pg27.5-35.2FChildren's Hospital for RehabilitationMCHC Auto (RBC) [Mass/Vol]Ordered By: Brook Huddleston on 87-27-0371IEJZ (RBC) [Mass/Vol]33.5 g/dL32.5-35.6FChildren's Hospital for RehabilitationMCV Auto (RBC) [Entitic vol]Ordered By: Brook Huddleston on 37-83-7266EPH (RBC) [Entitic vol]109.7 fL 83.5-101[facility] – JacksonMacrocytes LM Ql (Bld)Ordered By: Brook Huddleston on 36-29-2164Sjmdetdgfn Ql (Bld)ModerateHolzer Medical Center – Jackson Monocytes Auto (Bld) [#/Vol]Ordered By: Brook Huddleston on 70-97-4187Skibglved (Bld) [#/Vol]0.7 10*3/uL0.0-0.8[facility] – JacksonMonocytes/100 WBC Auto (Bld)Ordered By: Brook Huddleston on 69-41-1493Andevyzlq/100 WBC (Bld)14.2 %.[facility] – JacksonNeutrophils Auto (Bld) [#/Vol]Ordered By: Brook Huddleston on 68-47-7200Ljacvgyfsov (Bld) [#/Vol]2.7 10*3/uL1.8-7.7FChildren's Hospital for RehabilitationNeutrophils/100 WBC Auto (Bld)Ordered By: Brook Huddleston on 06-13-2022 Neutrophils/100 WBC (Bld)54.0 %.[facility] – JacksonNo Panel InformationOrdered By: Brook Huddleston on 20.3 %0-0.5FChildren's Hospital for RehabilitationEstimated GFR ()32 mL/MinHolzer Medical Center – JacksonComment on above:GFR estimated reference range: According to KDOQI guidelines, <60 ml/min/1.73m2 is sufficient todiagnose a patient with chronic kidney disease.Pharmacy Creatinine Clearance (Chem30.32[facility] – JacksonProtein Electrophoresis M-SpikeNot observedHolzer Medical Center – JacksonComment on above:Reference: Not ObservedProtein Electrophoresis NoteSee commentHolzer Medical Center – JacksonComment on above:Protein electrophoresis scan will follow via computer, mail, or camera supervisor delivery.Performing Labs01:CB - [facility] [address], [id number] Dir: Melchor Agrawal, PhDFor Inquiries, the physician may contact Branch: [phone] Lab: [phone] ImmunofixationSee commentHolzer Medical Center – JacksonComment on above:No monoclonality detected.Urine Random Prot Electrophor NoteSee comment.[facility] – JacksonComment on above:Protein electrophoresis scan will follow via computer,mail, or camera supervisor delivery.See commentHolzer Medical Center – JacksonOvalocyte detectionOrdered By: Brook Huddleston on 74-64-4844Mpcdwthzhs LM Ql (Bld)[facility]lower HospitalPlatelet adequacy [Presence] in Blood by Light microscopyOrdered By: Brook Huddleston on 90-00-9805Ejwzjdmgb LM Ql (Bld)DecreasedNormMedina HospitalPlatelet mean volume Auto (Bld) [Entitic vol]Ordered By: Brook Huddleston on 56-72-7402Fletzmiq mean volume (Bld) [Entitic vol]9.1 fL6.6-10.1 [facility] – JacksonPlatelet morphology finding [Identifier] in BloodOrdered By: Brook Huddleston on 85-90-4930Pjqdxffp morphology finding Nom (Bld) NormalNormMedina HospitalPlatelets Auto (Bld) [#/Vol]Ordered By: Brook Huddleston on 75-43-2955Zvyiynvzy (Bld) [#/Vol]122 10*3/kG121-621KquqjtjfyHolzer Medical Center – JacksonPoikilocytosis [Presence] in Blood by Light microscopy Ordered By: Brook Huddleston on 69-39-4399Pqtyopruuxmdtr LM Ql (Bld)[facility]lower HospitalProtein [Mass/volume] in Serum or PlasmaOrdered By: Brook Huddleston on 21-95-7755Fnzckha [Mass/Vol]6.1 g/dL6.1-7.9[facility] – JacksonProtein [Mass/Vol]6.643693040930 g/dLHolzer Medical Center – Jackson Comment on above:Reference: 6.0-8.5Protein [Mass/volume] in UrineOrdered By: Brook Huddleston on 78-54-9940Lotsysj (U) [Mass/Vol]132.7 mg/dLNot Estab.[facility] – JacksonProtein.monoclonal/Protein.total in 24 hour Urine by ElectrophoresisOrdered By: Brook Huddleston on 39-62-2117Pyuhkbl.monoclonal Elph (24H U) [Mass fraction]Comment: %Not ObservedHolzer Medical Center – JacksonComment on above:UPE shows asymmetrical gamma.RBC Auto (Bld) [#/Vol]Ordered By: Brook Huddleston on 94-32-7975ZEG (Bld) [#/Vol]2.78 10*6/uL3.90-5.60[facility] – JacksonRBC morphologyOrdered By: Brook Huddleston on 46-73-7636DCI morphology finding Nom (Bld)N/AFOhio State Harding Hospitalerum globulin measurement (mass/volume)Ordered By: Brook Huddleston on 41-83-8771Zkgpdvio (S) [Mass/Vol] 3.206582453279 g/dLHolzer Medical Center – JacksonComment on above:Reference: 2.2-3.9Serum or plasma alanine aminotransferase measurement without P-5'-P (enzymatic activiOrdered By: Brook Huddleston on 71-96-5186MWG No additional P-5'-P [Catalytic activity/Vol]33 U/J41-29DwrublwsdToledo Hospitalerum or plasma albumin/globulin mass ratioOrdered By: Brook Huddleston on 06-13-2022 Albumin/Globulin [Mass ratio]1.2 {ratio}[facility] Albumin/Globulin [Mass ratio]1.0 {ratio}[facility] – JacksonComment on above:Reference: 0.7-1.7Serum or plasma alkaline phosphatase measurement (enzymatic activity/volume)Ordered By: Brook Huddleston on 99-95-3423CKV [Catalytic activity/Vol]116 U/W20-74CktajzsisToledo Hospitalerum or plasma alpha 1 globulin measurement by electrophoresis (mass/volume)Ordered By: Brook Huddleston on 57-04-9202Vemzn 1 globulin Elph [Mass/Vol]0.2865372840378 g/dLHolzer Medical Center – JacksonComment on above:Reference: 0.0-0.4Serum or plasma alpha 2 globulin measurement by electrophoresis (mass/volume)Ordered By: Brook Huddleston on 58-74-0887Khmvd 2 globulin Elph [Mass/Vol]1.878631672313 g/dLHolzer Medical Center – JacksonComment on above:Reference: 0.4-1.0Serum or plasma anion gap determinationOrdered By: Brook Huddleston on 38-60-9580Zgizh gap [Moles/Vol]17.0 mmol/L 6.0-15.0Toledo Hospitalerum or plasma aspartate aminotransferase measurement (enzymatic activity/volume)Ordered By: Brook Huddleston on 25-46-9694YAQ [Catalytic activity/Vol]24 U/Q81-29WfahslwlkToledo Hospitalerum or plasma beta globulin measurement by electrophoresis (mass/volume) Ordered By: Brook Huddleston on 60-74-7794Zjye globulin Elph [Mass/Vol]1.921132789973 g/dLHolzer Medical Center – JacksonComment on above:Referene: 0.7-1.3Serum or plasma calcium measurement (mass/volume)Ordered By: Brook Huddleston on 06-13-2022 Calcium [Mass/Vol]9.2 mg/dL8.2-10.2FOhio State Harding Hospitalerum or plasma chloride measurement (moles/volume)Ordered By: Brook Huddleston on 06-13-2022 Chloride [Moles/Vol]101 mmol/G12-369ZgydknhnsToledo Hospitalerum or plasma gamma globulin measurement by electrophoresis (mass/volume)Ordered By: Brook Huddleston on 44-30-2237Qsqvi globulin Elph [Mass/Vol]1.008648441579 g/dL [facility] – JacksonComment on above:Reference: 0.4-1.8Serum or plasma glucose measurement (mass/volume)Ordered By: Brook Huddleston on 06-13-2022 Glucose [Mass/Vol]176 mg/sR53-409BhbfnnwedHolzer Medical Center – JacksonComment on above:ADA recommended reference rangeRandom Glucose Reference Range is dependent on time and content of last meal. Glucose of more than 200 mg/dL in a nonstressed, ambulatory subject supports the diagnosisof Diabetes Mellitus.Serum or plasma potassium measurement (moles/volume)Ordered By: Brook Huddleston on 85-00-3416Xgnwfwlzs [Moles/Vol]4.9 mmol/L3.5-5.1FOhio State Harding Hospitalerum or plasma sodium measurement (moles/volume)Ordered By: Brook Huddleston on 24-55-9187Pvydnc [Moles/Vol]133 mmol/H443-477EcpthyiegHolzer Medical Center – Jackson Serum or plasma total bilirubin measurement (mass/volume)Ordered By: Brook Huddleston on 97-61-9607Qtbuuusad [Mass/Vol]0.6 mg/dL0.3-1.2FOhio State Harding Hospitalerum or plasma total carbon dioxide measurement (moles/volume)Ordered By: Brook Huddleston on 60-88-3088VS7 [Moles/Vol]19.9 mmol/L22.0-30.0Toledo Hospitalerum or plasma urea nitrogen measurement (mass/volume)Ordered By: Brook Huddleston on 51-03-9211Pkuc nitrogen [Mass/Vol]32 mg/dL9-23[facility] – JacksonUrine alpha 1 globulin/total protein by electrophoresisOrdered By: Brook Huddleston on 00-51-5553Jmmul 1 globulin Elph (U) [Mass fraction]5.5 %.[facility] – JacksonUrine alpha 2 globulin/total protein ratio by electrophoresisOrdered By: Brook Huddleston on 81-79-8910Ecwfx 2 globulin Elph (U) [Mass fraction]11.8 %.[facility] – JacksonUrine beta globulin measurement by electrophoresis (mass/volume)Ordered By: Brook Huddleston on 06-13-2022 Beta globulin Elph (U) [Mass/Vol]19.2 %.[facility] – JacksonWBC Auto (Bld) [#/Vol]Ordered By: Brook Huddleston on 13-41-0114RKN (Bld) [#/Vol]5.0 10*3/uL4.1-10.5FChildren's Hospital for RehabilitationActivated partial thromboplastin time (aPTT) in platelet poor plasma by coagulation aOrdered By: Brook Huddleston on 06-17-0807gCLG Coag (PPP) [Time]30.1 s25.1-36.5FChildren's Hospital for Rehabilitation Albumin [Mass/volume] in Serum or PlasmaOrdered By: Brook Huddleston on 04-30-2022 Albumin [Mass/Vol]3.5 g/dL3.2-5.5FChildren's Hospital for RehabilitationAlbumin [Mass/Vol]3.7 g/dL2.9-4.4FChildren's Hospital for RehabilitationAlbumin/Protein.total in 24 hour Urine by ElectrophoresisOrdered By: Brook Huddleston on 67-59-9224Jpacvar Elph (24H U) [Mass fraction]36.8 %.[facility] – JacksonBasophils Auto (Bld) [#/Vol]Ordered By: Brook Huddleston on 95-37-9683Uaenjquxm (Bld) [#/Vol]0.0 10*3/uL0.0-0.2FChildren's Hospital for RehabilitationBasophils/100 WBC Auto (Bld) Ordered By: Brook Huddleston on 51-63-3399Jbvpclpkz/100 WBC (Bld)0.8 %.[facility] – JacksonBlood anisocytosis detectionOrdered By: Brook Huddleston on 72-92-9713Khtmqlavbtfr Ql (Bld)[facility]lower HospitalBlood hemoglobin measurement (mass/volume)Ordered By: Brook Huddleston on 04-30-2022 Hemoglobin (Bld) [Mass/Vol]10.7 g/dL13.0-17.0[facility] Blood leukocytes automated count (number/volume)Ordered By: Brook Huddleston on 07-98-5509RJJ (Bld) [#/Vol]3.4 10*3/uL4.5-11.0[facility] Blood polychromasia detection by light microscopyOrdered By: Brook Huddleston on 79-80-3489Vrefulqcpnzde LM Ql (Bld)[facility] Creatinine and Glomerular filtration rate.predicted panel (S/P/Bld)Ordered By: Brook Huddleston on 87-94-7243Vgnvoygkui [Mass/Vol]1.81 mg/dL0.64-1.27[facility] – JacksonEosinophils Auto (Bld) [#/Vol]Ordered By: Brook Huddleston on 59-98-8524Qihzalgkcag (Bld) [#/Vol]0.3 10*3/uL0.0-0.45[facility] – JacksonEosinophils/100 WBC Auto (Bld)Ordered By: Brook Huddleston on 04-30-2022 Eosinophils/100 WBC (Bld)9.9 %.[facility] – JacksonErythrocyte distribution width Auto (RBC) [Ratio]Ordered By: Brook Huddleston on 04-30-2022 Erythrocyte distribution width (RBC) [Ratio]16.8 %12.0-14.8[facility] – JacksonEstimated glomerular filtration rate (GFR) non- Ordered By: Brook Huddleston on 38-25-0234RKL/1.73 sq M.predicted among non-blacks MDRD (S/P/Bld) [Vol rate/Area]37 mL/MinHolzer Medical Center – JacksonGamma globulin/Protein.total in 24 hour Urine by ElectrophoresisOrdered By: Brook Huddleston on 76-25-6483Czvhn globulin Elph (24H U) [Mass fraction]23.7 %.[facility] – JacksonHematocrit Auto (Bld) [Volume fraction]Ordered By: Brook Huddleston on 36-22-3783Erpvqgyzez (Bld) [Volume fraction]31.6 %38.8-50.0[facility] – JacksonIgA [Mass/volume] in Serum or PlasmaOrdered By: Brook Huddleston on 11-89-6042IpN [Mass/Vol]190 mg/qC43-721KvxuvkgrnHolzer Medical Center – JacksonIgG [Mass/volume] in Serum or PlasmaOrdered By: Brook Huddleston on 80-94-3578RfT [Mass/Vol]912 mg/sG365-3325LjocattajHolzer Medical Center – JacksonIgM [Mass/volume] in Serum or PlasmaOrdered By: Brook Huddleston on 11-28-0167QvI [Mass/Vol]29 mg/oN05-363 [facility] – JacksonComment on above:Performed at: [facility] [id number] Director: Melchor Agrawal PhD, Phone: [phone] for UrineOrdered By: Brook Huddleston on 04-30-2022 Interpretation Immunofixation (U) [Interp]See comment.[facility] – JacksonComment on above:No monoclonality detected.Performed at: [address] [id number] Director: Melchor Agrawal PhD, Phone: [phone] light chains.kappa.free [Mass/volume] in Serum Ordered By: Brook Huddleston on 01-37-1145Jidylesqmgpzyi light chains.kappa.free (S) [Mass/Vol]45.5 mg/L3.3-19.4FChildren's Hospital for RehabilitationImmunoglobulin light chains.kappa.free/Immunoglobulin light chains.lambda.free [MassOrdered By: Brook Huddleston on 65-63-1633Pbctzguqgpokff light chains.kappa.free/Immunoglobulin light chains.lambda.free (S) [Mass ratio]1.630.26-1.65[facility] – JacksonComment on above:Performed at: [address] [id number] Director: Melchor Agrawal PhD, Phone: [phone] Immunoglobulin light chains.lambda.free [Mass/volume] in Serum or PlasmaOrdered By: Brook Huddleston on 37-30-1081Ihjdjjdwbegzbn light chains.lambda.free [Mass/Vol] 27.9 mg/L5.7-26.3FChildren's Hospital for RehabilitationLaboratory - Coagulation Ordered By: Brook Huddleston on 09-19-1887PP Coag (PPP) [Time]11.6 s9.0-12.9[facility] – JacksonLaboratory - Hematology and Cell countsOrdered By: Brook Huddleston on 81-53-9704Tapzxspuu RBC/100 WBC (Bld) [Ratio]0.1 %0-0.5FChildren's Hospital for RehabilitationLactate dehydrogenase measurement (enzymatic activity/volume)Ordered By: Brook Huddleston on 27-10-9358DVF (Unsp spec) [Catalytic activity/Vol]240 U/Q73-378BopiozbmaHolzer Medical Center – JacksonLymphocytes Auto (Bld) [#/Vol]Ordered By: Brook Huddleston on 79-22-9575Iolllomflhj (Bld) [#/Vol]0.8 10*3/uL1.00-4.8[facility] – JacksonLymphocytes/100 WBC Auto (Bld) Ordered By: Brook Huddleston on 97-50-2810Bnmhhbyltjc/100 WBC (Bld)24.5 %.[facility] – JacksonMCH Auto (RBC) [Entitic mass]Ordered By: Brook Huddleston on 72-65-7029SXP (RBC) [Entitic mass]38.2 pg27.5-35.2FChildren's Hospital for RehabilitationMCHC Auto (RBC) [Mass/Vol]Ordered By: Brook Huddleston on 84-85-3901KSEO (RBC) [Mass/Vol]33.8 g/dL32.5-35.6FChildren's Hospital for RehabilitationMCV Auto (RBC) [Entitic vol]Ordered By: Brook Huddleston on 90-50-7460RFB (RBC) [Entitic vol]113.0 fL 83.5-101[facility] – JacksonMacrocytes detectionOrdered By: Brook Huddleston on 36-66-7303Uyypvqobxr Ql (Bld)ModerateHolzer Medical Center – Jackson Monocytes Auto (Bld) [#/Vol]Ordered By: Brook Huddleston on 28-09-4725Zampaxmxk (Bld) [#/Vol]0.3 10*3/uL0.0-0.8[facility] – JacksonMonocytes/100 WBC Auto (Bld)Ordered By: Brook Huddleston on 37-76-1851Vqqlhwylc/100 WBC (Bld)9.0 %.[facility] – JacksonNeutrophils Auto (Bld) [#/Vol]Ordered By: Brook Huddleston on 33-15-5153Qjajdjrabim (Bld) [#/Vol]1.9 10*3/uL1.8-7.7FChildren's Hospital for RehabilitationNeutrophils/100 WBC Auto (Bld)Ordered By: Brook Huddleston on 04-30-2022 Neutrophils/100 WBC (Bld)55.8 %.[facility] – JacksonNo Panel InformationOrdered By: Brook Huddleston on 77-44-3776Hxiwo Random Prot Electrophor Note See comment.[facility] – JacksonComment on above:Protein electrophoresis scan will follow via computer,mail, or camera supervisor delivery. Estimated GFR ()44 mL/MinHolzer Medical Center – Jackson Comment on above:GFR estimated reference range: According to KDOQI guidelines, <60 ml/min/1.73m2 is sufficient todiagnose a patient with chronic kidney disease.Pharmacy Creatinine Clearance (Chem40.70[facility] – JacksonPlatelet EstimateDecreasedNormMedina HospitalPlatelet Morphology CommentNormKnox Community HospitalProtein Electrophoresis M-SpikeNot observed g/dLNot ObservedHolzer Medical Center – JacksonProtein Electrophoresis NoteSee comment.[facility] Comment on above:Protein electrophoresis scan will follow via computer,mail, or camera supervisor delivery.Serum ImmunofixationSee comment.[facility] – JacksonComment on above:No monoclonality detected.Platelet mean volume Auto (Bld) [Entitic vol]Ordered By: Brook Huddleston on 33-95-3281Bmmivjjt mean volume (Bld) [Entitic vol]8.8 fL6.6-10.1FChildren's Hospital for RehabilitationPlatelet poor plasma international normalized ratio (INR) by coagulation assay (relatOrdered By: Brook Huddleston on 18-68-5833UHE Coag (PPP) [Relative time]1.0 {INR}[facility] – JacksonComment on above:INR Therapeutic Range A) Pre- and Peroperative OAT started two weeks before surgery. NOT HIP SURGERY: 1.5 - 2.5 HIP SURGERY: 2 - 3 B) Primary and secondary prevention of venous THROMBOSIS: 2 - 3 C) Active venous thrombosis, pulmonary embolism and prevention of recurrent venous thrombosis: 2 - 3 D) Prevention of arterial thromboembolism including patients with mechanical heart valves: 3 - 4.5INR Therapeutic Range A) Pre- and Peroperative OAT started two weeks before surgery. NOT HIP SURGERY: 1.5 - 2.5 HIP SURGERY: 2 - 3B) Primary and secondary prevention of venous THROMBOSIS: 2 - 3C) Active venous thrombosis, pulmonary embolismand prevention of recurrent venous thrombosis: 2 - 3D) Prevention of arterial thromboembolismincluding patients with mechanical heart valves: 3 - 4.5Platelets Auto (Bld) [#/Vol]Ordered By: Brook Huddleston on 46-34-7589Wecjpiyjq (Bld) [#/Vol]119 10*3/nH468-581FgbpqwrbpHolzer Medical Center – JacksonProtein [Mass/volume] in Serum or PlasmaOrdered By: Brook Huddleston on 44-15-2893Jxjhgae [Mass/Vol]6.2 g/dL6.1-7.9 [facility] – JacksonProtein [Mass/Vol]6.4 g/dL6.0-8.5FChildren's Hospital for RehabilitationProtein [Mass/volume] in UrineOrdered By: Brook Huddleston on 98-90-4460Eaxcdkr (U) [Mass/Vol]12.1 mg/dLNot Estab.[facility] – JacksonProtein.monoclonal/Protein.total in 24 hour Urine by Electrophoresis Ordered By: Brook Huddleston on 06-99-6208Bkuboan.monoclonal Elph (24H U) [Mass fraction]Not observed %Not ObservedHolzer Medical Center – JacksonRB Auto (Bld) [#/Vol]Ordered By: Brook Huddleston on 40-89-9800NCA (Bld) [#/Vol]2.80 10*6/uL 3.90-5.60[facility] morphologyOrdered By: Brook Huddleston on 86-36-0420TKL morphology finding Nom (Bld)N/AFChildren's Hospital for Rehabilitation Serum globulin measurement by calculation (mass/volume)Ordered By: Brook Huddleston on 29-59-3161Abthoyfo (S) [Mass/Vol]2.7 g/dL2.2-3.9Toledo Hospitalerum or plasma alanine aminotransferase measurement without P-5'-P (enzymatic activiOrdered By: Brook Huddleston on 72-44-6861RUM No additional P-5'-P [Catalytic activity/Vol]29 U/D19-46AazbmimpxToledo Hospitalerum or plasma albumin/globulin mass ratioOrdered By: Brook Huddleston on 04-30-2022 Albumin/Globulin [Mass ratio]1.3 {ratio}[facility] Albumin/Globulin [Mass ratio]1.4 {ratio}0.7-1.7FChildren's Hospital for Rehabilitation Serum or plasma alkaline phosphatase measurement (enzymatic activity/volume) Ordered By: Brook Huddleston on 89-92-9401UPQ [Catalytic activity/Vol]80 U/L32-92 [facility] Hospitalerum or plasma alpha 1 globulin measurement by electrophoresis (mass/volume)Ordered By: Brook Huddleston on 71-08-2425Txjdx 1 globulin Elph [Mass/Vol]0.2 g/dL0.0-0.4FOhio State Harding Hospitalerum or plasma alpha 2 globulin measurement by electrophoresis (mass/volume)Ordered By: Brook Huddleston on 95-96-6334Mdzyh 2 globulin Elph [Mass/Vol]0.7 g/dL0.4-1.0T[facility]edo Hospitalerum or plasma anion gap determinationOrdered By: Brook Huddleston on 60-66-6040Kexkc gap [Moles/Vol]14.9 mmol/L6.0-15.0T[facility]edo Hospitalerum or plasma aspartate aminotransferase measurement (enzymatic activity/volume)Ordered By: Brook Huddleston on 99-14-7366ZGC [Catalytic activity/Vol] 39 U/K80-67EohnqiyoiToledo Hospitalerum or plasma beta globulin measurement by electrophoresis (mass/volume)Ordered By: Brook Huddleston on 04-30-2022 Beta globulin Elph [Mass/Vol]1.0 g/dL0.7-1.3FChildren's Hospital for Rehabilitation Serum or plasma calcium measurement (mass/volume)Ordered By: Brook Huddleston on 93-24-4920Aldowtt [Mass/Vol]9.5 mg/dL8.2-10.2FChildren's Hospital for Rehabilitation Serum or plasma chloride measurement (moles/volume)Ordered By: Brook Huddleston on 98-04-1206Scbduvvd [Moles/Vol]102 mmol/R25-410JtxpyjnjbHolzer Medical Center – Jackson Serum or plasma gamma globulin measurement by electrophoresis (mass/volume) Ordered By: Brook Huddleston on 07-28-1040Jfsac globulin Elph [Mass/Vol]0.8 g/dL0.4-1.8 [facility] Hospitalerum or plasma glucose measurement (mass/volume)Ordered By: Brook Huddleston on 81-45-9862Zpjdigw [Mass/Vol]262 mg/dL 70-100[facility] – JacksonComment on above:ADA recommended reference range Random Glucose Reference Range is dependent on time and content of last meal. Glucose of more than 200 mg/dL in a nonstressed, ambulatory subject supports the diagnosis of Diabetes Mellitus.ADA recommended reference rangeRandom Glucose Reference Range is dependent on time and content of last meal. Glucose of more than 200 mg/dL in a nonstressed, ambulatory subject supports the diagnosisof Diabetes Mellitus.Serum or plasma potassium measurement (moles/volume)Ordered By: Brook Huddleston on 58-83-5813Jyzfbbrvi [Moles/Vol]4.3 mmol/L3.5-5.1FOhio State Harding Hospitalerum or plasma sodium measurement (moles/volume)Ordered By: Brook Huddleston on 18-49-3641Krotmn [Moles/Vol]135 mmol/B681-096YcrpncvjeToledo Hospitalerum or plasma total bilirubin measurement (mass/volume)Ordered By: Brook Huddleston on 19-70-3948Nbvwxwvoe [Mass/Vol]0.8 mg/dL0.3-1.2FOhio State Harding Hospitalerum or plasma total carbon dioxide measurement (moles/volume)Ordered By: Brook Huddleston on 82-47-8157RX2 [Moles/Vol]22.4 mmol/L 22.0-30.0T[facility]edo Hospitalerum or plasma urea nitrogen measurement (mass/volume)Ordered By: Brook Huddleston on 67-36-8229Lubz nitrogen [Mass/Vol]18 mg/dL9-23[facility] – JacksonTeardrop cell detection Ordered By: Brook Huddleston on 09-35-8124Ditgezolcs LM Ql (Bld)SlightHolzer Medical Center – JacksonUrine alpha 1 globulin/total protein by electrophoresis Ordered By: Brook Huddleston on 61-21-2392Aujsn 1 globulin Elph (U) [Mass fraction]2.3 %.[facility] – JacksonUrine alpha 2 globulin/total protein ratio by electrophoresisOrdered By: Brook Huddleston on 63-35-1219Nnrpw 2 globulin Elph (U) [Mass fraction]10.3 %.[facility] – JacksonUrine beta globulin measurement by electrophoresis (mass/volume)Ordered By: Brook Huddleston on 04-30-2022 Beta globulin Elph (U) [Mass/Vol]27.0 %.[facility] – JacksonUrine culture routineOrdered By: Price Crain on 88-92-0969Wqdmkirj identified Cx Nom (U)No Growth 2 DaysHolzer Medical Center – JacksonAutomated erythrocytes count in urine sediment (number/area)Ordered By: Price Crain on 66-76-0715VYY Auto (Urine sed) [#/Area]Innumerable [HPF]0-4FChildren's Hospital for Rehabilitation Automated leukocytes count in urine sediment (number/area)Ordered By: Price Crain on 97-99-9679GTY Auto (Urine sed) [#/Area]Innumerable [HPF]0-4FChildren's Hospital for RehabilitationBilirubin Test strip Ql (U)Ordered By: Price Crain on 99-08-0718Hprsorpyb Ql (U)NegativeNegativeHolzer Medical Center – JacksonBody fluid albumin measurement (mass/volume)Ordered By: Price Crain on 04-23-2022 Albumin (Body fld) [Mass/Vol]3.5 g/dL3.2-5.5FChildren's Hospital for Rehabilitation Color Auto (U)Ordered By: Price Crain on 51-10-8477Gcdat (U)YellowYellow [facility] – JacksonCreatinine [Mass/volume] in UrineOrdered By: Price Crain on 19-61-9369Qchzlsaeix (U) [Mass/Vol]120.5 mg/dLHolzer Medical Center – JacksonComment on above:No reference range establishedCreatinine and Glomerular filtration rate.predicted panel (S/P/Bld)Ordered By: Price Crain on 47-87-1397Wqqjlmacqa [Mass/Vol]1.42 mg/dL0.64-1.27Hol[facility] Center – JacksonEstimated glomerular filtration rate (GFR) non- AmericanOrdered By: Price Crain on 87-68-0525LDL/1.73 sq M.predicted among non-blacks MDRD (S/P/Bld) [Vol rate/Area]48 mL/MinHolzer Medical Center – JacksonGlobulin Calc (S) [Mass/Vol]Ordered By: Price Crain on 31-09-3120Peicascx (S) [Mass/Vol]2.5 g/dLHolzer Medical Center – JacksonKetones Auto test strip (U) [Mass/Vol] Ordered By: Price Crain on 41-64-8108Fhktdfs (U) [Mass/Vol]NegativeNegative [facility] – JacksonLaboratory - UrinalysisOrdered By: Price Crain on 46-43-5668Chuukss casts LM Ql (Urine sed)None seen [LPF]0-8Hol[facility] Center – JacksonNitrite Test strip Ql (U)Ordered By: Price Crain on 23-97-9678Izadgca Ql (U)NegativeNegProMedica Fostoria Community HospitalNo Panel InformationOrdered By: Price Crain on 15-24-768446195277-Ebtkmjp Vitamin D Total43.1 ng/wW88-578TnbktaiwoHolzer Medical Center – JacksonComment on above:VITAMIN D STATUS 25(OH)VITAMIN D RANGE (ng/mL) Deficient <20 Insufficient 20 to <30 Sufficient 30 to 100 Reference: Brendon Daniel, Estrella CARTER, et al. Evaluation,treatment, and prevention of vitamin D deficiency; an Endocrine Society clinical practice guideline. JCEM. 2010; 96(7):1911-30.VITAMIN D STATUS 25(OH)VITAMIN D RANGE (ng/mL) Deficient <20 Insufficient 20 to <77Kxsislpbiz41 to 100Reference: Brendon Daniel, Estrella CARTER, et al. Evaluation,treatment, and prevention of vitamin D deficiency; an Endocrine Society clinical practice guideline. JCEM. 2010; 96(7):1911-30.Estimated GFR ()58 mL/MinHolzer Medical Center – JacksonComment on above: GFR estimated reference range: According to KDOQI guidelines, <60 ml/min/1.73m2 is sufficient todiagnose a patient with chronic kidney disease.Pharmacy Creatinine Clearance (ChemN/[facility] HospitalProtein Auto test strip (U) [Mass/Vol]Ordered By: Price Crain on 84-11-8982Ziebfyt (U) [Mass/Vol] 30 mg/dLNegativeHolzer Medical Center – JacksonProtein [Mass/volume] in Serum or PlasmaOrdered By: Price Crain on 88-33-7976Pdlunby [Mass/Vol]6.0 g/dL6.1-7.9 [facility] – JacksonProtein [Mass/volume] in UrineOrdered By: Price Crain on 29-32-9906Pumxlvn (U) [Mass/Vol]34 mg/dL0-9[facility] Hospitalerum cryoglobulin detectionOrdered By: Price Crain on 04-23-2022 Cryoglobulin Ql (S)See commentNone detectedHolzer Medical Center – Jackson Comment on above:None Detected at 72 hours This test was developed and its performance characteristics determined by [facility]. It has not been cleared or approved by the Food and Drug Administration. Performed at: [address] [id number] Trapeze Artist: Melchor Agrawal PhD, Phone: [phone] Detected at 72 hoursThis test was developed and its performance characteristicsdetermined by [facility]. It has not been cleared orapproved by the Food and Drug Administration.Performed at: [address] [id number] Director: Melchor Agrawal PhD, Phone: [phone] or plasma alanine aminotransferase measurement without P-5'-P (enzymatic activiOrdered By: Price Crain on 30-34-1885LHF No additional P-5'-P [Catalytic activity/Vol]23 U/Y19-09XiuxrlqajToledo Hospitalerum or plasma albumin/globulin mass ratioOrdered By: Price Crain on 32-36-3645Kyczawg/Globulin [Mass ratio]1.4 {ratio}[facility] Hospitalerum or plasma alkaline phosphatase measurement (enzymatic activity/volume)Ordered By: Price Crain on 17-52-4537NLM [Catalytic activity/Vol]83 U/W04-64ZplxhobanToledo Hospitalerum or plasma anion gap determinationOrdered By: Price Crain on 05-46-6882Owwvb gap [Moles/Vol]11.2 mmol/L6.0-15.0[facility] Hospitalerum or plasma aspartate aminotransferase measurement (enzymatic activity/volume)Ordered By: Price Crain on 87-57-5943HUM [Catalytic activity/Vol]19 U/L64-91QbglffxbpToledo Hospitalerum or plasma calcium measurement (mass/volume)Ordered By: Price Crain on 53-21-3690Oocyfgh [Mass/Vol]8.9 mg/dL8.2-10.2FOhio State Harding Hospitalerum or plasma chloride measurement (moles/volume) Ordered By: Price Crain on 11-44-9036Yyptllpv [Moles/Vol]105 mmol/L95-114 [facility] Hospitalerum or plasma glucose measurement (mass/volume)Ordered By: Price Crain on 79-53-4561Bxcybhg [Mass/Vol]188 mg/dL 70-100Hol[facility] Medical Center – JacksonComment on above:ADA recommended reference range Random Glucose Reference Range is dependent on time and content of last meal. Glucose of more than 200 mg/dL in a nonstressed, ambulatory subject supports the diagnosis of Diabetes Mellitus.ADA recommended reference rangeRandom Glucose Reference Range is dependent on time and content of last meal. Glucose of more than 200 mg/dL in a nonstressed, ambulatory subject supports the diagnosisof Diabetes Mellitus.Serum or plasma intact parathyroid hormone measurement (mass/volume)Ordered By: Price Crain on 68-81-0081Nlrkcrhedi.intact [Mass/Vol] 44.8 pg/pR49-74EilkqqxijToledo Hospitalerum or plasma potassium measurement (moles/volume)Ordered By: Price Crain on 99-42-2876Xuehadzjp [Moles/Vol]4.1 mmol/L3.5-5.1FOhio State Harding Hospitalerum or plasma sodium measurement (moles/volume)Ordered By: Price Crain on 61-30-7496Skgieh [Moles/Vol]136 mmol/Z328-468SjzgnnuqqToledo Hospitalerum or plasma total bilirubin measurement (mass/volume)Ordered By: Price Crain on 04-23-2022 Bilirubin [Mass/Vol]0.6 mg/dL0.3-1.2FOhio State Harding Hospitalerum or plasma total carbon dioxide measurement (moles/volume)Ordered By: Price Crain on 26-61-8163KO2 [Moles/Vol]23.9 mmol/L22.0-30.0[facility] Hospitalerum or plasma urea nitrogen measurement (mass/volume)Ordered By: Price Crain on 91-69-5424Enfs nitrogen [Mass/Vol]17 mg/dL9-23T[facility]edo Hospitalerum or plasma uric acid measurement (mass/volume)Ordered By: Price Crain on 46-41-1250Eictk [Mass/Vol]4.7 mg/dL2.6-7.2FOhio State Harding Hospitalpecific gravity Auto test strip (U) [Rel density]Ordered By: Price Crain on 63-59-5149Raqryruz gravity (U) [Rel density]1.0191.001-1.030T[facility]edo Hospitalquamous epithelial cells detection in urine sediment by light microscopyOrdered By: Price Crain on 96-29-2974Ayfkwpeeng cells.squamous LM Ql (Urine sed)None seen [HPF]0-2FChildren's Hospital for RehabilitationUrine bacteria detection by automated methodOrdered By: Price Crain on 04-23-2022 Bacteria Auto Ql (U)None seenNone SeenHolzer Medical Center – JacksonUrine clarity by refractometry automatedOrdered By: Price Crain on 39-22-2381Rjdaerv Refractometry automated (U)CloudyCleKeenan Private HospitalUrine glucose measurement by automated test strip (mass/volume)Ordered By: Price Crain on 19-48-0574Rbtpttp Auto test strip (U) [Mass/Vol]500 mg/dLHocking Valley Community HospitalUrine hemoglobin detection by automated test stripOrdered By: Price Crain on 47-68-3738Ncxjwizgwq Auto test strip Ql (U)3+ NegativeHolzer Medical Center – JacksonUrine leukocyte esterase detection by automated test stripOrdered By: Price Crain on 47-72-3503Rewqlfmcc esterase Auto test strip Ql (U)3+NegativeHolzer Medical Center – JacksonUrine protein/creatinine ratioOrdered By: Price Crain on 03-20-6289Xplpugm/Creatinine (U) [Ratio]282 mg/g{Cre}0-200Hol[facility] Medical Center – JacksonUrobilinogen Auto test strip (U) [Mass/Vol]Ordered By: Price Crain on 06-49-0367Ojnwppxlyule (U) [Mass/Vol]Normal mg/dLNoProMedica Fostoria Community HospitalpH Auto test strip (U)Ordered By: Price Crain on 89-42-0785rQ (U)5.5 [pH]5.0-9.0[facility] Center – JacksonURINALYSISOrdered By: Jason Braden on 16-90-3803Mziysrcdf Ql (U)Negative (04/18/22 2:19 PM)NormalNegativeS[facility] [place] UA Auto SSClarity (U)SL CLOUDYInvalid Interpretation CodeFTMC UA Auto SSColor (U)STRAWInvalid Interpretation CodeSOUTHWESTERN REGIONAL [facility] [place] UA Auto SSEpithelial cells.squamous LM.HPF (Urine sed) [#/Area]0-2 /HPFNormal 0-2/HPFSOUTHWESTERN REGIONAL MEDICAL CENTER [facility] [place] UA Auto SSGlucose Test strip (U) [Mass/Vol]3+ *ABN* (04/18/22 2:19 PM)Invalid Interpretation CodeNegativeSOUTHWEST[facility] [place] UA Auto SSHemoglobin Ql (U)1+ *ABN* (04/18/22 2:19 PM)Invalid Interpretation CodeNegativeFT UA Auto SSKetones (U) [Mass/Vol]Negative (04/18/22 2:19 PM)NormalNegativeSOUTHWEST[facility] [place] UA Auto SSLithium.plasma/Madaket.RBC (Bld) [Mass ratio]0-3 /HPFNormal0-3/HPFSOUTHWESTERN REGIONAL MEDICAL [facility] [place] UA Auto SSNitrite Ql (U)Negative (04/18/22 2:19 PM)NormalNegativeSOUTHWEST[facility] [place] UA Auto SSpH (U)6.5 *NA* (04/18/22 2:19 PM)Invalid Interpretation Code5.0 - 9.0[facility] UA Auto SSProtein (U) [Mass/Vol]Negative (04/18/22 2:19 PM)NormalNegativeSOUTHWEST[facility] [place] UA Auto SSSpecific gravity (U) [Rel density] 1.015 *NA* (04/18/22 2:19 PM)Invalid Interpretation Code1.005 - 1.030[facility] UA Auto SSUA Spec DescClean Catch (04/18/22 2:19 PM)NormalSOUTHWESTERN [facility] [place] UA Auto SSUrobilinogen Qn (U)0.3071368 {Caroline'U}/dL Normal0.0 - 1.0 EU/dLSOUTHWESTERN REGIONAL MEDICAL [facility] [place] UA Auto SSWBC Auto Ql (U)Trace *ABN* (04/18/22 2:19 PM)Invalid Interpretation CodeNegativeSOUTHWEST[facility] [place] UA Auto SSWBC LM.HPF (Urine sed) [#/Area]6-15 /HPFInvalid Interpretation Code0-5/HPFMC UA Auto SS Urine culture routineOrdered By: Helen Ochoa on 91-65-6596Thwleqer identified Cx Nom (U)No Growth 2 DaysHolzer Medical Center – JacksonBasophils Auto (Bld) [#/Vol]Ordered By: Brook Huddleston on 93-53-7527Qbppsttjh (Bld) [#/Vol]0.0 10*3/uL 0.0-0.2FChildren's Hospital for RehabilitationBasophils/100 WBC Auto (Bld)Ordered By: Brook Huddleston on 25-40-0811Jufaezshg/100 WBC (Bld)0.8 %.[facility] – JacksonBlood anisocytosis detectionOrdered By: Brook Huddleston on 03-20-2022 Anisocytosis Ql (Bld)MarkedHolzer Medical Center – JacksonBlood hemoglobin measurement (mass/volume)Ordered By: Brook Huddleston on 87-70-0044Vrzowaxonq (Bld) [Mass/Vol]8.8 g/dL13.0-17.0[facility] Medical Center – JacksonBlfairmont hospital and clinic leukocytes automated count (number/volume)Ordered By: Brook Huddleston on 78-88-4866KPD (Bld) [#/Vol]3.6 10*3/uL4.5-11.0[facility] Medical Center – JacksonEosinophils Auto (Bld) [#/Vol]Ordered By: Brook Huddleston on 56-41-5839Cttpnvpykjv (Bld) [#/Vol]0.4 10*3/uL0.0-0.45Hol[facility] Medical Center – JacksonEosinophils/100 WBC Auto (Bld) Ordered By: Brook Huddleston on 30-80-9374Bfmoxzwcgae/100 WBC (Bld)11.5 %.[facility] Medical Center – JacksonErythrocyte distribution width Auto (RBC) [Ratio]Ordered By: Brook Huddleston on 42-80-5600Hwrulhwbild distribution width (RBC) [Ratio]24.1 % 12.0-14.8[facility] Medical Center – JacksonHematocrit Auto (Bld) [Volume fraction]Ordered By: Brook Huddleston on 58-29-8758Cbaigimclp (Bld) [Volume fraction] 26.0 %38.8-50.0[facility] – JacksonLaboratory - Hematology and Cell countsOrdered By: Brook Huddleston on 38-98-7191Gotfwskje RBC/100 WBC (Bld) [Ratio]0.0 %0-0.5FChildren's Hospital for RehabilitationLymphocytes Auto (Bld) [#/Vol]Ordered By: Brook Huddleston on 45-25-9759Fyqyciezcdf (Bld) [#/Vol]0.7 10*3/uL1.00-4.8[facility] – JacksonLymphocytes/100 WBC Auto (Bld)Ordered By: Brook Huddleston on 65-00-0937Hbxrrsdcwhm/100 WBC (Bld)19.8 %.[facility] – JacksonMCH Auto (RBC) [Entitic mass]Ordered By: Brook Huddleston on 70-04-3937WKQ (RBC) [Entitic mass]37.9 pg27.5-35.2FChildren's Hospital for RehabilitationMCHC Auto (RBC) [Mass/Vol] Ordered By: Brook Huddleston on 63-21-1663EUEO (RBC) [Mass/Vol]33.9 g/dL32.5-35.6 [facility] – JacksonMCV Auto (RBC) [Entitic vol]Ordered By: Brook Huddleston on 00-39-0354OHI (RBC) [Entitic vol]111.8 fL83.5-101Hol[facility] – JacksonMacrocytes detectionOrdered By: Brook Huddleston on 32-11-1964Lrxsgogoeq Ql (Bld)ModerateHolzer Medical Center – JacksonMonocytes Auto (Bld) [#/Vol] Ordered By: Brook Huddleston on 01-09-2928Biwkxwzrx (Bld) [#/Vol]0.3 10*3/uL0.0-0.8 [facility] – JacksonMonocytes/100 WBC Auto (Bld)Ordered By: Brook Huddleston on 43-33-4416Vvcsjbpxq/100 WBC (Bld)9.2 %.[facility] – JacksonNeutrophils Auto (Bld) [#/Vol]Ordered By: Brook Huddleston on 03-20-2022 Neutrophils (Bld) [#/Vol]2.1 10*3/uL1.8-7.7FChildren's Hospital for Rehabilitation Neutrophils/100 WBC Auto (Bld)Ordered By: Brook Huddleston on 11-90-1042Nalkfksixow/100 WBC (Bld)58.7 %.[facility] – JacksonNo Panel InformationOrdered By: Brook Huddleston on 59-60-4709Evvjcnvi EstimateDecreasedNormMedina HospitalPlatelet Morphology CommentNormalNoProMedica Fostoria Community HospitalPoikilocytosisSlightToledo HospitalchistocytesRare [facility] – JacksonOvalocyte detectionOrdered By: Brook Huddleston on 07-76-7227Yonckakyai LM Ql (Bld)[facility] Flower HospitalPlatelet mean volume Auto (Bld) [Entitic vol]Ordered By: Brook Huddleston on 93-87-7010Fpezoukv mean volume (Bld) [Entitic vol]9.0 fL6.6-10.1FChildren's Hospital for Rehabilitation Platelets Auto (Bld) [#/Vol]Ordered By: Brook Huddleston on 08-89-2773Dwnoaizip (Bld) [#/Vol]98 10*3/xT282-637DivxtdasmHolzer Medical Center – JacksonRBC Auto (Bld) [#/Vol] Ordered By: Brook Huddleston on 06-70-8145VWM (Bld) [#/Vol]2.32 10*6/uL3.90-5.60 [facility] – JacksonRB morphologyOrdered By: Brook Huddleston on 62-92-6298HRV morphology finding Nom (Bld)N/AFChildren's Hospital for Rehabilitation Hypochromia detectionOrdered By: Brook Huddleston on 02-64-9998Mwhdjfyyhix Ql (Bld) [facility] Flower HospitalHypochromia Ql (Bld)Hypochromia detection [facility] – JacksonBlood polychromasia detection by light microscopyOrdered By: Rosie Chew on 67-28-4359Npqmqbbozegeg LM Ql (Bld) [facility]lower HospitalPOINT OF CARE GLUCOSEon 55-80-0864Xzvtcfd [Mass/Vol]190 mg/dLCritically kpla52-975WyhCleveland Clinic FoundationComment on above: Performed By: #### POCGLUC #### [facility] [address] [address] [address] Lydia MerrittXR KUB 1 VIEWon 21-70-8525RT KUB 1 VIEWEXAMINATION: XR KUB 1 VIEW HISTORY: Kidney stone [...] Electronically authenticated by: CHAD BURNETTE Date: 2022-01-14 11:58NormalThe [facility] AUTO DIFFon 04-89-6972AEHX #0.0 103/ulNormal0.0-0.1The [facility] County HospitalComment on above:Performed By: #### PTT, PT #### [facility] [address] [place] [address] Dr. Lydia MerrittBasophils/100 WBC (Bld)0.3 %Normal0.2-2.0[facility] Comment on above:Performed By: #### PTT, PT #### [facility] [address] [place] [address] Dr. Lydia Mars #0.3 103/ulNormal0.0-0.7The [facility] County HospitalComment on above: Performed By: #### PTT, PT #### [facility] [address] [place] [address] Dr. Lydia Moyaosinophils/100 WBC (Bld)8.6 %Critically high0.9-7.0The [facility] HospitalComment on above:Performed By: #### PTT, PT #### [facility] [address] [place] [address] Dr. Lydia Moyarythrocyte distribution width (RBC) [Ratio]18.3 %Critically high 11.0-15.0[facility] Clinic FoundationComment on above:Performed By: #### PTT, PT #### [facility] [address] [place] [address] Dr. Lydia MerrittHematocrit (Bld) [Volume fraction]22.1 %Critically low42.0-54.0 The [facility] HospitalComment on above:Result Comment: test repeated critical value verifiedPerformed By: #### PTT, PT #### [facility] [address] [place] [address] Dr. Lydia MerrittHemoglobin (Bld) [Mass/Vol]7.4 g/dLCritically low14.0-18.0The [facility] HospitalComment on above:Performed By: #### PTT, PT #### [facility] [address] [place] [address] Dr. Lydia Shafer #0.02 10e3/ulNormal0.00-0.03The [facility] HospitalComment on above:Performed By: #### PTT, PT #### [facility] [address] [place] [address] Dr. Lydia Shafer %0.5 %Normal0.0-0.5The [facility] HospitalComment on above: Performed By: #### PTT, PT #### [facility] [address] [place] [address] Dr. Lydia Roa #0.8 103/ulCritically low1.2-3.8The [facility] Comment on above:Performed By: #### PTT, PT #### [facility] [address] [place] [address] Dr. Lydia Robledohocytes/100 WBC (Bld)21.2 %Cusley63.5-60.0The [facility] HospitalComment on above:Performed By: #### PTT, PT #### [facility] [address] [place] [address] Dr. Lydia RomeroUAL DIFF REQNONormalThe [facility] HospitalComment on above: Performed By: #### PTT, PT #### [facility] [address] [place] [address] Dr. Lydia Jacobson (RBC) [Entitic mass]37.2 pgCritically high25.9-34.0The [facility] HospitalComment on above:Performed By: #### PTT, PT #### [facility] [address] [place] [address] Dr. Lydia Short (RBC) [Mass/Vol]33.5 g/zDUxluoo03.9-35.2The [facility] HospitalComment on above:Performed By: #### PTT, PT #### [facility] [address] [place] [address] Dr. Lydia Guillen (RBC) [Entitic vol]111.1 fLCritically high80.0-94.0The [facility] HospitalComment on above:Performed By: #### PTT, PT #### [facility] [address] [place] [address] Dr. Lydia Dalton #0.2 103/ulCritically low0.3-0.8The [facility] HospitalComment on above:Performed By: #### PTT, PT #### [facility] [address] [place] [address] Dr. Lydia Luqueocytes/100 WBC (Bld)6.5 %Normal1.7-12.0The [facility] Comment on above:Performed By: #### PTT, PT #### [facility] [address] [place] [address] Dr. Lydia Sanz #2.3 103/ulNormal1.4-6.5The [facility] HospitalComment on above:Performed By: #### PTT, PT #### [facility] [address] [place] [address] Dr. Lydia Laurenutrophils/100 WBC (Bld)62.9 %Abbszr17.0-75.0The [facility] HospitalComment on above:Performed By: #### PTT, PT #### [facility] [address] [place] [address] Dr. Lydia Mac mean volume (Bld) [Entitic vol]11.1 fLNormal9.5-13.5The [facility] HospitalComment on above:Performed By: #### PTT, PT #### [facility] [address] [place] [address] Dr. Lydia Jimenez89 103/ulCritically sqo495-655Tcd [facility] HospitalComment on above:Performed By: #### PTT, PT #### [facility] [address] [place], [place] [id number] Dr. Lydia MerrittRBC1.99 106/ulCritically low4.70-6.10The [facility] HospitalComment on above:Performed By: #### PTT, PT #### [facility] [address] [place] [address] Dr. Lydia MerrittWBC3.7 103/ulCritically low4.0-11.0The [facility] HospitalComment on above:Performed By: #### PTT, PT #### [facility] [address] [place] [address] Dr. Lydia MerrittPROF CHEM 8 (BAS METB)on 86-92-0360Zyfsq gap [Moles/Vol]12.4 mmol/LNormalThe [facility] HospitalComment on above:Performed By: #### BMP #### [facility] [address] [place] [address] Dr. Lydia MerrittCalcium [Mass/Vol]9.0 mg/dLNormal8.5-10.1The [facility] Comment on above:Performed By: #### BMP #### [facility] [address] [place] [address] Dr. Lydia MerrittChloride [Moles/Vol]105 mmol/RTtomhd39-334Xri [facility] Comment on above:Performed By: #### BMP #### [facility] [address] [place] [address] Dr. Lydia MerrittCO2 [Moles/Vol]23.8 mmol/LQbpxes84.0-32.0The [facility] Comment on above:Performed By: #### BMP #### [facility] [address] [place] [address] Dr. Lydia MerrittCreatinine [Mass/Vol]1.41 mg/dLCritically high0.70-1.30The [facility] HospitalComment on above:Performed By: #### BMP #### [facility] [address] [place] [address] Dr. Lydia MoyaGFR-AF HODATNOL00 mL/min/1.98a0Mspsqqeokc low>=60The [facility] HospitalComment on above:Performed By: #### BMP #### [facility] [address] [address] [address] Lydia MoyaGFR-NON AF QXMSDRRP82 mL/min/1.42z5Lgujexnfla low>=60The [facility] on above:Performed By: #### BMP #### [facility] [address] [address] [address] Lydia MerrittGlucose [Mass/Vol]176 mg/dLCritically gqcd38-125Fyo [facility] on above:Performed By: #### BMP #### [facility] [address] [address] [address] Lydia MerrittPotassium [Moles/Vol]4.2 mmol/LNormal3.5-5.1[facility] Comment on above:Performed By: #### BMP #### [facility] [address] [address] [address] Lydia MerrittSodium [Moles/Vol]137 mmol/IPbmewh254-804Fny [facility] Comment on above:Performed By: #### BMP #### [facility] [address] [address] [address] Lydia MerrittUrea nitrogen [Mass/Vol]14.0 mg/dLNormal7.0-18.0The [facility] on above:Performed By: #### BMP #### [facility] [address] [address] [address] Lydia MerrittUrea nitrogen/Creatinine [Mass ratio]9.9 mg/mgNoLima City HospitalComment on above:Performed By: #### BMP #### [facility] [address] [address] [address] Lydia MerrittPROTIMEon 50-24-9865BOQ Coag (PPP) [Relative time]0.97 {INR} NormalThe [facility] on above:Performed By: #### PTT, PT #### [facility] [address] [address] [address] Lydia Mackenzie GUIDELINESSEE BELOWCommunity Memorial HospitalComment on above:Result Comment: DESIRED INR: 2.0 - 3.0 CONDITIONS NOT LISTED BELOW 2.5 - 3.5 FOR PROSTHETIC HEART VALVE REPLACEMENT 2.5 - 3.5 RECURRENT THROMBOSIS Performed By: #### PTT, PT #### [facility] [address] [place], [place] [address] Dr. Lydia Atkinson Coag (PPP) [Time]10.5 sNormal9.0-11.6The [facility] Comment on above:Performed By: #### PTT, PT #### [facility] [id number] Lydia Ott 29-48-2775rMLB Coag (Bld) [Time]29.5 rHcjply34.3-36.2[facility] Clinic FoundationComment on above:Performed By: #### PTT, PT #### [facility] [address] [place] [address] Lydia MerrittSerum or plasma erythropoietin (EPO) measurement (units/volume) Ordered By: Brook Huddleston on 89-33-0420Udejpicidrjizm (EPO) Qn547.7 mIU/mL2.6-18.5 [facility] – JacksonComment on above:SmartDrive Systemsel DxI 800 Immunoassay System Values obtained with different assay methods or kits cannot be used interchangeably. Results cannot be interpreted as absolute evidence of the presence or absence of malignant disease. Performed at: [facility] [address], [place] [id number] Trapeze Artist: Melchor Agrawal PhD, Phone: [phone] Coul[employer] UniCel DxI 800 Immunoassay SystemValues obtained with different assay methods or kits cannotbe used interchangeably. Results cannot be interpreted asabsolute evidence of the presence or absence of malignantdisease.Performed at: [facility] [id number] Director: Melchor Agrawal PhD, Phone: [phone] [Mass/volume] in Serum or PlasmaOrdered By: Brook Huddleston on 34-67-0110Ghjqtig [Mass/Vol]2.9 g/dL3.2-5.5FChildren's Hospital for Rehabilitation Albumin [Mass/Vol]2.8 g/dL2.9-4.4FChildren's Hospital for Rehabilitation Albumin/Protein.total in 24 hour Urine by ElectrophoresisOrdered By: Brook Huddleston on 47-61-0886Kvjmzxf Elph (24H U) [Mass fraction]35.4 %.[facility] – JacksonCT biopsyOrdered By: Brook Huddleston on 50-29-6090Abmbjnidboe [Mass/Vol] 101 mg/wN321-989LvldjvgklHolzer Medical Center – JacksonCreatinine and Glomerular filtration rate.predicted panel (S/P/Bld)Ordered By: Brook Huddleston on 12-26-2021 Creatinine [Mass/Vol]1.47 mg/dL0.64-1.27[facility] Estimated glomerular filtration rate (GFR) non- AmericanOrdered By: Brook Huddleston on 54-80-1487QEM/1.73 sq M.predicted among non-blacks MDRD (S/P/Bld) [Vol rate/Area]47 mL/MinHolzer Medical Center – JacksonFerritin [Mass/volume] in Serum or PlasmaOrdered By: Brook Huddleston on 89-41-8737Otujgzgo [Mass/Vol]663.4 ng/mL 23.9-336.2FChildren's Hospital for RehabilitationGamma globulin/Protein.total in 24 hour Urine by ElectrophoresisOrdered By: Brook Huddleston on 76-87-5275Nqldo globulin Elph (24H U) [Mass fraction]21.5 %.[facility] – JacksonGlobulin Calc (S) [Mass/Vol]Ordered By: Brook Huddleston on 28-28-2530Ozcjpjsk (S) [Mass/Vol]3.5 g/dLHolzer Medical Center – JacksonIgA [Mass/volume] in Serum or Plasma Ordered By: Brook Huddleston on 78-26-5581SyA [Mass/Vol]250 mg/mZ26-810RmlxpqngwHolzer Medical Center – JacksonIgG [Mass/volume] in Serum or PlasmaOrdered By: Brook Huddleston on 89-99-2640EhC [Mass/Vol]944 mg/rD360-5879XqhmgqmmuHolzer Medical Center – Jackson IgM [Mass/volume] in Serum or PlasmaOrdered By: Brook Huddleston on 24-13-6820QlI [Mass/Vol]33 mg/mV31-228DsjivkqxyHolzer Medical Center – JacksonComment on above: Performed at: [address] [id number] Trapeze Artist: Melchor Agrawal PhD, Phone: [phone] at: [address] [id number] Director: Melchor Agrawal PhD, Phone: [phone] for UrineOrdered By: Brook Huddleston on 02-52-9239Dhrtarvyxpubfb Immunofixation (U) [Interp]See comment.[facility] – JacksonComment on above:No monoclonality detected. Performed at: [address] [id number] Trapeze Artist: Melchor Agrawal PhD, Phone: [phone] monoclonality detected.Performed at: [address] [id number] Director: Melchor Agrawal PhD, Phone: [phone] light chains.kappa.free [Mass/volume] in SerumOrdered By: Brook Huddleston on 97-49-7738Bpapkxqzvjvmyp light chains.kappa.free (S) [Mass/Vol]38.9 mg/L3.3-19.4 [facility] – JacksonImmunoglobulin light chains.kappa.free/Immunoglobulin light chains.lambda.free [MassOrdered By: Brook Huddleston on 73-15-0986Xqzlndgvtyhwti light chains.kappa.free/Immunoglobulin light chains.lambda.free (S) [Mass ratio]1.310.26-1.65[facility] – JacksonComment on above:Performed at: [address] [id number] Trapeze Artist: Melchor Agrawal PhD, Phone: [phone] at: [address] [id number] Director: Melchor Agrawal PhD, Phone: [phone] light chains.lambda.free [Mass/volume] in Serum or PlasmaOrdered By: Brook Huddleston on 37-38-3718Dmzvijfroxiiue light chains.lambda.free [Mass/Vol]29.7 mg/L5.7-26.3FChildren's Hospital for Rehabilitation Iron [Mass/volume] in Serum or PlasmaOrdered By: Brook Huddleston on 94-23-1093Lise [Mass/Vol]102 ug/uA61-611VgzfamhcdHolzer Medical Center – JacksonIron binding capacity [Mass/volume] in Serum or PlasmaOrdered By: Brook Huddleston on 84-82-1061Dfvu binding capacity [Mass/Vol]141 ug/eU951-021RjtwbsjstHolzer Medical Center – JacksonIron saturation [Mass Fraction] in Serum or PlasmaOrdered By: Brook Huddleston on 12-26-2021 Iron saturation [Mass fraction]72.0 %20-50[facility] – JacksonNo Panel InformationOrdered By: Brook Huddleston on 90-36-9029Ulzjdkqbz GFR ()56 mL/MinHolzer Medical Center – JacksonComment on above:GFR estimated reference range: According to KDOQI guidelines, <60 ml/min/1.73m2 is sufficient todiagnose a patient with chronic kidney disease.Pharmacy Creatinine Clearance (Chem47.88[facility] – JacksonProtein Electrophoresis M-SpikeNot observed g/dLNot ObservedHolzer Medical Center – JacksonProtein Electrophoresis NoteSee comment.[facility] – JacksonComment on above:Protein electrophoresis scan will follow via computer, mail, or camera supervisor delivery. Performed at: [employer] [facility] [address] [id number] Trapeze Artist: Melchor Agrawal PhD, Phone: [phone] electrophoresis scan will follow via computer,mail, or camera supervisor delivery.Performed at: [employer] [facility] [address] [id number] Director: Melchor Agrawal PhD, Phone: [phone] ImmunofixationSee comment.[facility] – JacksonComment on above:No monoclonality detected.Urine Random Prot Electrophor NoteSee comment.[facility] – JacksonComment on above:Protein electrophoresis scan will follow via computer, mail, or camera supervisor delivery.Protein electrophoresis scan will follow via computer,mail, or camera supervisor delivery.Protein [Mass/volume] in Serum or Plasma Ordered By: Brook Huddleston on 88-68-2120Ifoddug [Mass/Vol]6.4 g/dL6.1-7.9[facility] – JacksonProtein [Mass/Vol]6.0 g/dL6.0-8.5FChildren's Hospital for RehabilitationProtein [Mass/volume] in UrineOrdered By: Brook Huddleston on 12-26-2021 Protein (U) [Mass/Vol]45.3 mg/dLNot Estab.[facility] Protein.monoclonal/Protein.total in 24 hour Urine by ElectrophoresisOrdered By: Brook Huddleston on 03-94-1478Gkjjjse.monoclonal Elph (24H U) [Mass fraction]Comment: % Not ObservedHolzer Medical Center – JacksonComment on above:UPE shows asymmetrical gamma.Serum globulin measurement (mass/volume)Ordered By: Brook Huddleston on 15-14-6591Kbxsutqf (S) [Mass/Vol]3.2 g/dL2.2-3.9[facility]edo Hospitalerum or plasma alanine aminotransferase measurement without P-5'-P (enzymatic activiOrdered By: Brook Huddleston on 34-10-8167LVL No additional P-5'-P [Catalytic activity/Vol]30 U/D86-54EbsvnnwrxToledo Hospitalerum or plasma albumin/globulin mass ratioOrdered By: Brook Huddleston on 12-26-2021 Albumin/Globulin [Mass ratio]0.8 {ratio}[facility] Albumin/Globulin [Mass ratio]0.9 {ratio}0.7-1.7FChildren's Hospital for Rehabilitation Serum or plasma alkaline phosphatase measurement (enzymatic activity/volume) Ordered By: Brook Huddleston on 63-29-3799ORT [Catalytic activity/Vol]112 U/L32-92 [facility] Hospitalerum or plasma alpha 1 globulin measurement by electrophoresis (mass/volume)Ordered By: Brook Huddleston on 33-37-5968Vseqa 1 globulin Elph [Mass/Vol]0.5 g/dL0.0-0.4FOhio State Harding Hospitalerum or plasma alpha 2 globulin measurement by electrophoresis (mass/volume)Ordered By: Brook Huddleston on 94-16-0538Icwpv 2 globulin Elph [Mass/Vol]1.0 g/dL0.4-1.0[facility]edo Hospitalerum or plasma aspartate aminotransferase measurement (enzymatic activity/volume)Ordered By: Brook Huddleston on 10-81-8166MTJ [Catalytic activity/Vol]23 U/W24-88EufnfkoizToledo Hospitalerum or plasma beta globulin measurement by electrophoresis (mass/volume)Ordered By: Brook Huddleston on 71-03-0877Mkpa globulin Elph [Mass/Vol]0.9 g/dL0.7-1.3FOhio State Harding Hospitalerum or plasma calcium measurement (mass/volume)Ordered By: Brook Huddleston on 98-34-0509Ogdzhaf [Mass/Vol]9.0 mg/dL8.2-10.2FChildren's Hospital for Rehabilitation Serum or plasma chloride measurement (moles/volume)Ordered By: Brook Huddleston on 51-78-0515Kcianbmh [Moles/Vol]103 mmol/G42-546YczuswonjHolzer Medical Center – Jackson Serum or plasma gamma globulin measurement by electrophoresis (mass/volume) Ordered By: Brook Huddleston on 36-83-2736Zvarw globulin Elph [Mass/Vol]0.9 g/dL0.4-1.8 [facility] Hospitalerum or plasma glucose measurement (mass/volume)Ordered By: Brook Huddleston on 43-81-4369Dsqmcbg [Mass/Vol]84 mg/lM63-298 [facility] – JacksonComment on above:ADA recommended reference range Random Glucose Reference Range is dependent on time and content of last meal. Glucose of more than 200 mg/dL in a nonstressed, ambulatory subject supports the diagnosis of Diabetes Mellitus.ADA recommended reference rangeRandom Glucose Reference Range is dependent on time and content of last meal. Glucose of more than 200 mg/dL in a nonstressed, ambulatory subject supports the diagnosisof Diabetes Mellitus.Serum or plasma homocysteine measurement (moles/volume)Ordered By: Brook Huddleston on 82-80-1237Pfsanplohqmb [Moles/Vol]17.5 umol/L0.0-19.2FChildren's Hospital for RehabilitationComment on above:Performed at: [employer] [id number] Trapeze Artist: Melchor Agrawal PhD, Phone: [phone] at: [employer] [id number] Director: Melchor Agrawal PhD, Phone: [phone] or plasma methylmalonate measurement (moles/volume) Ordered By: Brook Huddleston on 55-66-6191Qiwqclvoympnqc [Moles/Vol]230 nmol/L0-378 [facility] – JacksonComment on above:This test was developed and its performance characteristics determined by [facility]. It has not been cleared or approved by the Food and Drug Administration. Performed at: [address] [id number] Trapeze Artist: Aliya Curtis MD, Phone: [phone] test was developed and its performance characteristicsdetermined by [facility]. It has not been cleared orapproved by the Food and Drug Administration.Performed at: [address] [id number] Director: Aliya Curtis MD, Phone: [phone] or plasma potassium measurement (moles/volume)Ordered By: Brook Huddleston on 45-87-6583Oyqbwemmf [Moles/Vol]3.9 mmol/L3.5-5.1FOhio State Harding Hospitalerum or plasma sodium measurement (moles/volume)Ordered By: Brook Huddleston on 35-70-1401Tupohd [Moles/Vol]135 mmol/C212-539RsufhoxvrToledo Hospitalerum or plasma total bilirubin measurement (mass/volume)Ordered By: Brook Huddleston on 39-56-7347Rsexcxbhw [Mass/Vol]0.5 mg/dL0.3-1.2FOhio State Harding Hospitalerum or plasma total carbon dioxide measurement (moles/volume)Ordered By: Brook Huddleston on 11-11-0711ZE0 [Moles/Vol]20.5 mmol/L 22.0-30.0T[facility]edo Hospitalerum or plasma urea nitrogen measurement (mass/volume)Ordered By: Brook Huddleston on 03-98-7123Lzzo nitrogen [Mass/Vol]18 mg/dL9-23[facility] – JacksonUrine alpha 1 globulin/total protein by electrophoresisOrdered By: Brook Huddleston on 12-26-2021 Alpha 1 globulin Elph (U) [Mass fraction]5.4 %.[facility] Urine alpha 2 globulin/total protein ratio by electrophoresisOrdered By: Brook Huddleston on 05-40-2315Gnbmu 2 globulin Elph (U) [Mass fraction]13.7 %.[facility] – JacksonUrine beta globulin measurement by electrophoresis (mass/volume)Ordered By: Brook Huddleston on 49-35-5033Sstj globulin Elph (U) [Mass/Vol]23.9 %.[facility] – JacksonBONE MARROW CHROMOSOME ANALYSISon 19-59-2152GLZV MARROW CHROM.ANALYSISSEE BELOWNoSouthwest Memorial HospitalComment on above:Result Comment: Genetics test results are available electronically in [facility] and Community Record. Results will be sent on a separate report. In the AEMR, go to Community record -> click on Clinical documents -> go to Genetics Studies tab for results.Performed By: #### KALCARMEN #### [facility] [address] [place], [place] [address]Qphbkd Note - Heme Oncon 81-82-7980Fofhnt Note - Heme Onc Cancer History: Treatment Synopsis: Mr Mills was initially referred from Dr. 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 Hospital course notable for 8 of 8 blood cultures growing MSSA, ECHO negative for vegetation. 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 Living arrangements: Lives with Advanced directives: Living will and DPOA on file Spirituality: Hindu PMH: DM, HTN, RINA, Sleep Apnea PSH: [...] mass or pain Extremiti (more content not included)...NormalUH [facility] DoverClinic Note - Intakeon 53-96-9813Smnopa Note - IntakePatient Visit Information: Visit TypeFollow Up Visit Source [...] you are livingno Depression: Past 2 wks: [place] down, depressed or hopelessno Past 2 wks: [place] little interest/pleasure doing thingsno Any Thoughts of [...] Last Updated: 12-Dec-2021 10:16 by Esther Garcia (PCNA)[facility] HospitalURF MARKERS >15,PATH REVon 10-83-8488RXWK REV. >15 MARKERS SHARDABuffalo HospitalComment on above:Result Comment: By her/his signature above, the Pathologist listed as making the final interpretation certifies that she/he has personally reviewed this case. Performed By: #### BRISA #### [facility] [address] [place], [place] [address]UTZONYQ MARKERS LOW GRADE PANELon 23-90-4548IOXWTNWVUMZI BELOWMelrose Area HospitalComment on above:Result Comment: No evidence of plasma cell neoplasm. No definite immunophenotypic evidence of a lymphoproliferative disorder. Performed By: #### LGP #### [facility] [address] [place], [place] [address]GY14 % of LymphNoSouthwest Memorial HospitalComment on above:Performed By: #### LGP #### [facility] [address] [place], [place] [address]ZDZWERD BELOWNoSouthwest Memorial HospitalComment on above:Result Comment: Correlate with separate surgical pathology report. Performed By: #### LGP #### [facility] [address] [place], [place] [address]MFDMHZY ELECTROPHORESIS,SERUMon 05-89-9284MDZJMOYCMXLKNG NORMALMelrose Area HospitalComment on above:Performed By: #### SPE2 #### [facility] [address] [place] [address] [facility] [address] [place], [place] [address]WEV PATH REVIEWon 53-50-6067VUQM REVIEW-SPEL.[facility]da HospitalComment on above:Result Comment: By her/his signature above, the Pathologist listed as making the final interpretation certifies that she/he has personally reviewed this case. Performed By: #### PR12 #### [facility] [address] [place], [place] [address]HFVBWPODHVBFKBG (G,A,M)on 20-98-1771JtE [Mass/Vol]27 mg/dLLow 40 - 230[facility] Toms RiverComment on above:Result Comment: MONOCLONAL PROTEINS MAY CAUSE FALSELY LOW RESULTS IN THIS ASSAY. SERUM PROTEIN ELECTROPHORESIS SHOULD BE DONE THE FIRST TEST TO EVALUATE MONOCLONAL GAMMOPATHY.Performed By: #### IGS #### [facility] [address] [place], [place] [address]CUGBY/LAMBDA FREE LIGHT CHAIN,Son 87-51-4087XIDC KAPPA LIGHT CHAINS,S3.92 mg/dLHigh0.33 - 1.94[facility] Toms RiverComment on above: Performed By: #### BRISA #### [facility] [address] [place], [place] [address]RPYB KAPPA/LAMBDA RATIO,S1.93Fwwqtn0.26 - 1.65[facility] Toms RiverComment on above:Result Comment: Undetected antigen excess is a rare event but [...] anomalies should be discussed with the testing laboratory.Performed By: #### BRISA #### [facility] [address] [place], [place] [address]QCJS LAMBDA LIGHT CHAIN,S2.92 mg/dLHigh0.57 - 2.63[facility] Toms RiverComment on above:Performed By: #### BRISA #### [facility] [address] [place], [place] [address]ROGVEXB ELECTROPHORESIS,SERUMon 53-80-6819Gnabojn [Mass/Vol] 3.6 g/dLNormal3.4 - 5.0[facility] Toms RiverComment on above:Performed By: #### SPE2 #### [facility] [address] [place] [address] [facility] [address] [place], [place] [address]UXMUT 1 GLOBULIN0.3 g/dLNormal0.2 - 0.6[facility] Toms RiverComment on above:Performed By: #### SPE2 #### [facility] [address] [place] [address] [facility] [address] [place], [place] [address]UVFUA 2 GLOBULIN0.6 g/dLNormal0.4 - 1.1[facility] Toms RiverComment on above:Performed By: #### SPE2 #### [facility] [address] [place] [address] [facility] [address] [place], [place] [address]RWSB GLOBULIN0.7 g/dLNormal0.5 - 1.2[facility] Toms RiverComment on above:Performed By: #### SPE2 #### [facility] [address] [place] [address] [facility] [address] [place], [place] [address]LBYQX GLOBULIN0.9 g/dLNormal0.5 - 1.4[facility] Toms RiverComment on above:Performed By: #### SPE2 #### [facility] [address] [place] [address] [facility] [address] [place], [place] [address]PNPCIBA MARKERS LOW GRADE PANELon 19-33-7572ZT398 % of Lymph NormalHealthSouth - Rehabilitation Hospital of Toms RiverComment on above:Performed By: #### LGP #### [facility] [address] [place], [place] [address]YB114 % of LymphNormalUClara Maass Medical CenterComment on above:Performed By: #### LGP #### [facility] [address] [place], [place] [address]RP[address] % of LymphNormKit Carson County Memorial HospitalComment on above:Performed By: #### LGP #### [facility] [address] [place], [place] [address]MGLU COUNT7.56 x10E9/LNormalHealth[facility] Comment on above:Performed By: #### LGP #### [facility] [address] [place], [place] [address]Guyysbmqjhse/100 WBC (Bld)49 %Melrose Area HospitalComment on above:Performed By: #### LGP #### [facility] [address] [place], [place] [address]Crnuiakfsfp/100 WBC (Bld)9 %[facility] Comment on above:Performed By: #### LGP #### [facility] [address] [place], [place] [address]Unphxgqve/100 WBC (Bld)4 %[facility] Comment on above:Performed By: #### LGP #### [facility] [address] [place], [place] [address]ZORCPQ OF CELLS TMAPBMBNB200,000 per tubeNoSouthwest Memorial HospitalComment on above:Performed By: #### LGP #### [facility] [address] [place], [place] [address]RSDCKZBP VIABILITYAcceptableNoSouthwest Memorial Hospital Comment on above:Result Comment: Flow cytometry results should be interpreted in the context of morphology. Flow cytometry findings may be unreliable due to sampling issues, differential loss or recovery of cell populations ex vivo, or low viability.Performed By: #### LGP #### [facility] [address] [place], [place] [address]NPV - Narrative Note Nursing-BMBx Nursing Noteon 11-28-2021 AMB - Narrative Note Nursing-BMBx Nursing NoteTopic and Description: Topic: BMBx Nursing Note Description: Patient arrived to ASCT unit via self-ambulation for bone marrow biopsy accompanied by . He is alert and oriented x3, denies pain or any discomfort. Vital signs obtained. Blood drawn from outpatient lab. CENTRIFUGAL CHILLER TECHNICIAN performed procedure. After biopsy, dressing checked is clean, dry and intact. Education provided and PI sheet given. No adverse reactions, no complaints and no assistance needed. Electronic Signatures: Violetta Bundy (EVY) (Signed 28-Nov-2021 11:37) Authored: Topic and Description Last Updated: 28-Nov-2021 11:37 by Violetta Bundy)NormalHealthSouth - Rehabilitation Hospital of Toms RiverBETA 2 MICROGLOBULINon 34-97-7006TGSM 2 MICROGLOBULIN3.5 mg/LHigh0.7 - 2.2 [facility] Toms RiverComment on above:Performed By: #### B2MIC #### [facility] [address] [place], [place] [address]JPQ AND DIFFERENTIALon 11-28-2021% AUTOMATED IMMATURE GRAN0.0 %Normal0.0 - 0.9[facility] Toms RiverComment on above:Result Comment: Immature Granulocyte Count (IG) includes promyelocytes, myelocytes and metamyelocytes but does not include bands. Percent differential counts (%) should be interpreted in the context of the absolute cell counts (cells/L).Performed By: #### PR12 #### [facility] [address] [place], [place] [address]Fprowrqdu (Bld) [#/Vol]0.02 10*3/uLNormal0.00 - 0.10[facility] Toms RiverComment on above:Performed By: #### PR12 #### [facility] [address] [place], [place] [address]Oywayqauv/100 WBC (Bld)0.9 %Normal0.0 - 2.0[facility] Toms RiverComment on above:Performed By: #### PR12 #### [facility] [address] [place], [place] [address]Lrgilkatjgp (Bld) [#/Vol]0.26 10*3/uLNormal0.00 - 0.40[facility] Toms RiverComment on above:Performed By: #### PR12 #### [facility] [address] [place], [place] [address]Kmiqnvibvbn/100 WBC (Bld)11.5 %Normal0.0 - 6.0[facility] Toms RiverComment on above:Performed By: #### PR12 #### [facility] [address] [place], [place] [address]Vfrwzehtnbi (Bld) [#/Vol]0.58 10*3/uLLow0.80 - 3.00[facility] T[facility] RiverComment on above:Performed By: #### PR12 #### [facility] [address] [place], [place] [address]Gcphwqskgku/100 WBC (Bld)25.7 %Lkkmhs35.0 - 44.0[facility] Toms RiverComment on above:Performed By: #### PR12 #### [facility] [address] [place], [place] [address]Iikexjnxv (Bld) [#/Vol]0.27 10*3/uLNormal0.05 - 0.80[facility] T[facility] RiverComment on above:Performed By: #### PR12 #### [facility] [address] [place], [place] [address]Uxawwezhr/100 WBC (Bld)11.9 %Normal2.0 - 10.0[facility] Toms RiverComment on above:Performed By: #### PR12 #### [facility] [address] [place], [place] [address]Ymijgdvbqzp (Bld) [#/Vol]1.13 10*3/uLLow1.60 - 5.50[facility] At DoverComment on above:Performed By: #### PR12 #### [facility] [address] [place], [place] [address]Yzsxfhrhpok/100 WBC (Bld)50.0 %Umyhev90.0 - 80.0[facility] Toms RiverComment on above:Performed By: #### PR12 #### [facility] [address] [place], [place] [address]Gvjorbmaq (Bld) [#/Vol]72 10*3/tPXsm386 - 450[facility] At DoverComment on above:Performed By: #### PR12 #### [facility] [address] [place], [place] [address]Txnfyjulpuw distribution width (RBC) [Ratio]21.5 %High11.5 - 14.5[facility] Toms RiverComment on above:Performed By: #### PR12 #### [facility] [address] [place], [place] [address]Xsjuetfswb (Bld) [Volume fraction]25.3 %Low41.0 - 52.0[facility] Toms RiverComment on above:Performed By: #### PR12 #### [facility] [address] [place], [place] [address]Wstthcqsed (Bld) [Mass/Vol]8.6 g/dLLow13.5 - 17.5[facility] Toms RiverComment on above:Performed By: #### PR12 #### [facility] [address] [place], [place] [address]PLOS (RBC) [Mass/Vol]34.0 g/xAPlnqcb47.0 - 36.0[facility] At DoverComment on above:Performed By: #### PR12 #### [facility] [address] [place], [place] [address]ODO (RBC) [Entitic vol]108 qFErcc49 - 100[facility] Toms RiverComment on above:Performed By: #### PR12 #### [facility] [address] [place], [place] [address]JWP6.35 x10E12/LLow4.50 - 5.90[facility] Comment on above:Performed By: #### PR12 #### [facility] [address] [place], [place] [address]WNK (Bld) [#/Vol]2.3 10*3/uLLow4.4 - 11.3[facility] Toms RiverComment on above:Performed By: #### PR12 #### [facility] [address] [place], [place] [address]GDNFAVDBWGJLK PANELon 49-51-4922Qzkhypj [Mass/Vol]3.8 g/dL Normal3.4 - 5.0[facility] Toms RiverComment on above:Performed By: #### CMP #### [facility] [address] [place], [place] [address]ZAU [Catalytic activity/Vol]78 U/HLaafba59 - 136[facility] Toms RiverComment on above:Performed By: #### CMP #### [facility] [address] [place], [place] [address]ZXW [Catalytic activity/Vol]18 U/SKukmsw08 - 52[facility] Toms RiverComment on above:Result Comment: Patients treated with Sulfasalazine may generate falsely decreased results for ALT.Performed By: #### CMP #### [facility] [address] [place], [place] [address]Elxqz gap [Moles/Vol]11 mmol/UJsfumg97 - 20[facility] Toms RiverComment on above:Performed By: #### CMP #### [facility] [address] [place], [place] [address]UYY [Catalytic activity/Vol]17 U/LNormal9 - 39[facility] Toms RiverComment on above:Performed By: #### CMP #### [facility] [address] [place], [place] [address]Kzrucawic [Mass/Vol]0.7 mg/dLNormal0.0 - 1.2[facility] Toms RiverComment on above:Performed By: #### CMP #### [facility] [address] [place], [place] [address]Aefprtj [Mass/Vol]9.3 mg/dLNormal8.6 - 10.3[facility] Toms RiverComment on above:Performed By: #### CMP #### [facility] [address] [place], [place] [address]Ejzhyoru [Moles/Vol]105 mmol/LWuoqjj82 - 107[facility] Toms RiverComment on above:Performed By: #### CMP #### [facility] [address] [place], [place] [address]Qzbneoplcd [Mass/Vol]1.14 mg/dLNormal0.50 - 1.30[facility] Toms RiverComment on above:Performed By: #### CMP #### [facility] [address] [place], [place] [address]DKH/1.73 sq M.predicted among non-blacks MDRD (S/P/Bld) [Vol rate/Area]66 mL/min/{1.73_m2}Normal>90[facility] Toms RiverComment on above:Result Comment: CALCULATIONS OF ESTIMATED GFR ARE PERFORMED USING THE 2020 CKD-EPI STUDY REFIT EQUATION WITHOUT THE RACE VARIABLE FOR THE IDMS-TRACEABLE CREATININE METHODS. https://jasn.asnjournals.org/content//ASN.4710200092Ojwlveyzh By: #### CMP #### [facility] [address] [place], [place] [address]Xvrmvjf [Mass/Vol]163 mg/oZCdve99 - 99[facility] Toms RiverComment on above:Performed By: #### CMP #### [facility] [address] [place], [place] [address]MLK2 (Bld) [Moles/Vol]27 mmol/YCemrvv22 - 32[facility] Toms RiverComment on above:Performed By: #### CMP #### [facility] [address] [place], [place] [address]Kioxwdsum [Moles/Vol]3.4 mmol/LLow3.5 - 5.3[facility] Toms RiverComment on above:Performed By: #### CMP #### [facility] [address] [place], [place] [address]Epppfs [Moles/Vol]140 mmol/CCsuaji652 - 145[facility] Toms RiverComment on above:Performed By: #### CMP #### [facility] [address] [place], [place] [address]Zbbs nitrogen [Mass/Vol]14 mg/dLNormal6 - 23[facility] Toms RiverComment on above:Performed By: #### CMP #### [facility] [address] [place], [place] [address]Mqapph Note - Heme Onc-Follow Up Visiton 22-57-7199Garnfb Note - Heme Onc-Follow Up VisitPatient Visit Information: Visit Type: Follow Up Visit Cancer History: Treatment Synopsis: Mr Mills was initially referred from Dr. 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 He achieved VGPR following Daratumumab/Velcade/Dexamethasone/Revlimid. 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 Hospital course notable for 8 of 8 blood cultures growing MSSA, ECHO negative for vegetation. He was discharged to [facility] for physical rehab & to complete treatment with Cefazolin 2gm IV every 8 hrs through 08/20/2020. History of Present Illness: ID Statement: PATSY MILLS is a 76 year old Male and Day of Transplant #490 Chief Complaint: Post transplant myeloma Interval History: Mr. Mills presents today (11/28/2021) to [facility] for follow up evaluation, labs, and bone marrow biopsy. 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 He continues to be on Revlimid 5 mg daily, Aspirin 81 mg daily. He has been following up with his local primary oncologist at [facility], Dr. Huddleston. T+490 today. Mr. Mills reports [...] required 2 units pRBCs on 10/31/21 at [facility]. No other transfusions since then. States over [...] months brought in by patient's (mostly from [facility]), patient's blood counts have been downtrending. On [...] Status: Active Anemia: I (more content not included)...NormalHealth[facility] Toms RiverClinic Note - Intakeon 61-18-4655Qbwkxi Note - IntakePatient Visit Information: Visit TypeNew Visit Source of [...] Medication Profile, Notification, Travel History, Falls Violetta Bundy) (Signed 28-Nov-2021 11:15) Authored: Falls Co-Signer: Patient Visit Information, Vital Signs, Allergies, Outpatient Medication Profile, Notification, Travel History, Falls Last Updated: 28-Nov-2021 11:15 by Violetta Bundy)[facility] Area HospitalFLOW CYTOMETRY TESTon 42-79-4640FATW TEST ORDEREDLOW GRADE PANELNoSouthwest Memorial HospitalComment on above:Performed By: #### FCTST #### [facility] [address] [place], [place] [address]KXAWTNVBKE MARROWNoSouthwest Memorial HospitalComment on above:Performed By: #### FCTST #### [facility] [address] [place], [place] [address]Fnct cultured cells for future analysison 91-28-2484Jbds cultured cells for future analysisHold cultured cells for future analysis CYTOGENETIC REPORT: [id number] Patient: Patsy Mills Date of : 1945 Specimen: Bone Marrow Date received: 11/28/2021 Lab ID: [id number] Indication: Multiple Myeloma Report date: 12/05/2021 Test: [...] receipt. Please contact the Genetics lab at [phone] for details. Final report signed by: Chris Marshall Ph.D., FACMG, FCCMG Test performed at: [address] [address] FAX: [phone] Website: [email or web address] Referred by: Quique Hall M.D. Yogi Christine M.D., Ph.D.NormalHealthSouth - Rehabilitation Hospital of Toms RiverIMMUNOGLOBULINS (G,A,M)on 16-94-0494TbL [Mass/Vol]203 mg/uYCbnhkl19 - 400[facility] Toms RiverComment on above:Result Comment: MONOCLONAL PROTEINS MAY CAUSE FALSELY LOW RESULTS IN THIS ASSAY. SERUM PROTEIN ELECTROPHORESIS SHOULD BE DONE THE FIRST TEST TO EVALUATE MONOCLONAL GAMMOPATHY.Performed By: #### IGS #### [facility] [address] [place], [place] [address]PnH [Mass/Vol]955 mg/cIPjxtno442 - 1600[facility] Toms RiverComment on above:Result Comment: MONOCLONAL PROTEINS MAY CAUSE FALSELY LOW RESULTS IN THIS ASSAY. SERUM PROTEIN ELECTROPHORESIS SHOULD BE DONE THE FIRST TEST TO EVALUATE MONOCLONAL GAMMOPATHY.Performed By: #### IGS #### [facility] [address] [place], [place] [address]WEQgb 05-28-0029LRA816 U/FMejddk26 - 246[facility] Toms RiverComment on above:Performed By: #### LDH #### [facility] [address] [place], [place] [address]CBXORIT ELECTROPHORESIS,SERUMon 69-02-5026Trokzcb [Mass/Vol] 6.1 g/dLLow6.4 - 8.2[facility] Toms RiverComment on above:Performed By: #### SPE2 #### [facility] [address] [place] [address] [facility] [address] [place], [place] [address]Kaebfksgd By: #### CMP #### [facility] [address] [place], [place] [address]HIO CELL MORPHOLOGYon 07-09-1246MENVJZTLRWMxdAixkslQF [facility] Medical CenterComment on above:Performed By: #### MORP2 #### [facility] [address] [place], [place] [address]YHWSBQXLRRUSPLouuSnxpdnWCSouthwest Memorial HospitalComment on above:Performed By: #### MORP2 #### [facility] [address] [facility] [place], [place] [address]KJZ morphology finding Nom (Bld)See BelowNoSouthwest Memorial HospitalComment on above:Performed By: #### MORP2 #### [facility] [address] [place], [place] [address]PJJKXWK MARKERS LOW GRADE PANELon 43-72-6636ZNHDPGPTU BELOW NormalHealth[facility] Toms RiverComment on above:Result Comment: This test is a multicolor, whole blood lysis assay. It was developed and its performance characteristics determined by the Department of Pathology, [facility], and has not been cleared or [...] CD43, CD23, CD1c, CD25, CD180, CD11c, CD79b, [place], Lambda, IgD. Additional Antibodies: CD138, PV09Rxgcgqnnx By: #### LGP #### [facility] [address] [place], [place] [address]VCDVQZKX [facility] MarrowNormKit [facility] Comment on above:Performed By: #### LGP #### [facility] [address] [place], [place] [address]BMW Surgical Pathology Departmenton 06-12-8299JOD Surgical Pathology DepartmentName MILLS PATSY BarronChay Pathologist: YOGI CHRISTINE JR, MD, PhD. Date of Procedure: 11/28/2021 Date Received: 11/28/2021 Date Reported 12/03/2021 Submitting Physician: QUIQUE HALL MD Location: [facility] Other External # FINAL DIAGNOSIS A [...] Rice MD. Electronically Signed Out By YOGI CHRITSINE JR, MD, PhD./LETTY By the signature on [...] toto in one cassette following decalcification. [facility]/11/28/2021 The assays/tests were performed with appropriate positive and negative controls which stained appropriately. [facility] Department of Pathology [address] [place], [place] [address]806Melrose Area HospitalComment on above:Performed By: #### KALAS #### [address] [place] [id number] dehydrogenase measurement (enzymatic activity/volume) Ordered By: Brook Huddleston on 07-09-8216UCN (Unsp spec) [Catalytic activity/Vol]128 U/R76-970GnwihebytToledo Hospitalerum or plasma cfvr-5-mmqefurqhwcmy measurement (mass/volume)Ordered By: Brook Huddleston on 81-95-2271Rxir-2-Microglobulin [Mass/Vol]3.9 ug/mLHigh0.6-2.4FChildren's Hospital for RehabilitationComment on above: Siemens Mappulite 2000 Immunochemiluminometric assay (ICMA) Values obtained with different assay methods or kits cannot be used interchangeably. Results cannot be interpreted as absolute evidence of the presence or absence of malignant disease. Performed at: [address] [id number] Trapeze Artist: Aliya Curtis MD, Phone: [phone] Immulite 2000 Immunochemiluminometric assay (ICMA)Values obtained with different assay methods or kits cannotbe used interchangeably. Results cannot be interpreted asabsolute evidence of the presence or absence of malignantdisease.Performed at: [address] [id number] Director: Aliya Curtis MD, Phone: [phone]-7-Djsatmepcxdxd [Mass/Vol]Serum or plasma coez-4-nkadijzylszuu measurement (mass/volume)High0.6-2.4FChildren's Hospital for RehabilitationComment on above:Siemens Immulite 2000 Immunochemiluminometric assay (ICMA)Values obtained with different assay methods or kits cannotbe used interchangeably. Results cannot be interpreted asabsolute evidence of the p resence or absence of malignantdisease.Performed at: [address] [id number] Director: Aliya Curtis MD, Phone: [phone] - Microbiology and Antimicrobial susceptibilityon 96-46-2201KXQW-CoV-2 (COVID-19) RNA ERIN+probe Ql (Unsp spec)/[facility] HospitalNo Panel Informationon 07-11-2020/[facility] Memorial HospitalRespiratory specimen 2019 novel coronavirus RNA detection by probe and target amplifion 03-62-6324DEHO-CoV-2 (COVID-19) RNA ERIN+probe Ql (Resp)Not detectedNot DetectedHolzer Medical Center – JacksonComment on above:This nucleic acid amplification test was developed and its performance characteristics determined by [employer]. Nucleic acid amplification tests include PCR and [...] a negative (not detected) result in this assay.This nucleic acid amplification test was developed and itsperformance characteristics determined byLabCorpLaboratories. Nucleic acid amplification tests include PCRand TMA. This test has not been FDA cleared or approved.This test has been authorized by FDA under an Emergency UseAuthorization (EUA). This test is only authorized forthe duration of time the declaration that circumstancesexist justifying the authorization of the emergency use ofin vitro diagnostic tests for detection of AFZH-MgC-9hlfngldy/or diagnosis of COVID-19 infection under fyjavob302(b)(1) of the Act, 21 U.S.C. 360bbb-3(b) (1), [...] have a negative(not detected) result in this assay.SARS-CoV-2 (COVID-19) RNA ERIN+probe Ql (Resp)Respiratory specimen 2019 novel coronavirus RNA detection by probe and target amplifiNot Samaritan North Health CenterComment on above:This nucleic acid amplification test was developed and itsperformance characteristics determined byLab[facility]Labora[facility]icAnimal[facility]. Nucleic acid amplification tests include PCRand TMA. This test has not been FDA cleared or approved.This test has been authorized by FDA under an Emergency UseAuthorization (EUA). This test is only authorized forthe duration of time the declaration that circumstancesexist justifying the authorization of the emergency use ofin vitro diagnostic tests for detection of CNNT-ZoZ-4goompmzm/or diagnosis of COVID-19 infection under izkxwcj753(b)(1) of the Act, 21 U.S.C. 360bbb-3(b) (1), unless theauthorization is terminated or revoked sooner.When diagnostic testing is negative, the possibility of afalse negative result should be considered in the contextof a patient's recent exposures and the presence ofclinical signs and symptoms consistent with COVID-19. Anindividual without symptoms of COVID-19 and who is notshedding SARS-CoV-2 virus would expect to have a negative(not d etected) result in this assay.Laboratory - Hematology and Cell countson 09-08-9967VLM (Bld) [#/Vol]8.6 10*3/uL4.5-11.0[facility] No Panel Informationon 07-02-20208.6 10*3/uL4.5-11.0[facility] JacksonLaboratory - Chemistry and Chemistry - challengeon 01-99-5935Mjcsjwmcq [Mass/Vol]2.1 mg/dL1.6-2.6FChildren's Hospital for RehabilitationNo Panel Information on 04-91-3573Vpzkbjodqvdpa Acid CommentSee comment.[facility] – JacksonComment on above:This test was developed and its performance characteristics determined by [employer]. It has not been cleared or approved by the Food and Drug Administration. Performed at: [address] [id number] Trapeze Artist: Aliya Curtis MD, Phone: [phone] test was developed and its performance characteristicsdetermined by [employer]. It has not been cleared orapproved by the Food and Drug Administration.Performed at: [address] [id number] Director: Aliya Curtis MD, Phone: [phone] comment.[facility] – JacksonCholesterol [Mass/volume] in Serum or Plasmaon 05-26-9123Towkkcoeubp [Mass/Vol]113 mg/dLLow 140-200Hol[facility] Center – JacksonComment on above:Chol less than 200 mg/dl low risk Chol 201-239 mg/dl borderline risk Chol 240 mg/dl and greater high riskChol less than 200 mg/dl low riskChol 201- 239 mg/dl borderline riskChol 240 mg/dl and greater high riskCholesterol [Mass/Vol]Cholesterol [Mass/volume] in Serum or BfscxsYda967-382BpptooqroHolzer Medical Center – JacksonComment on above:Chol less than 200 mg/dl low riskChol 201-239 mg/dl borderline riskChol 240 mg/dl and greater high riskCholesterol in LDL Calc [Mass/Vol]on 55-45-2437Mdasijebdxf in LDL [Mass/Vol]59 mg/dL0-100 [facility] – JacksonComment on above:LDL ATP III CLASSIFICATION LDL less than 100 mg/dL Optimal LDL 100-129 mg/dL Near or above optimal LDL 130-159 mg/dL Borderline high LDL 160-189 mg/dL High LDL greater than 189 mg/dL Very highLDL ATP III CLASSIFICATIONLDL less than 100 mg/dL OptimalLDL 100-129 mg/dL Near or above gsphudiPTQ623-052 mg/dL Borderline highLDL 160-189 mg/dL HighLDL greater than 189 mg/dL Very highCholesterol in LDL [Mass/Vol]Cholesterol in LDL [Mass/volume] in Serum or Plasma by calculation 0-100[facility] – JacksonComment on above:LDL ATP III CLASSIFICATIONLDL less than 100 mg/dL OptimalLDL 100-129 mg/dL Near or above foakdelPQD247-881 mg/dL Borderline highLDL 160-189 mg/dL HighLDL greater than 189 mg/dL Very highCholesterol in VLDL Calc [Mass/Vol]on 96-45-0906Ohftkgsajkf in VLDL [Mass/Vol]29 mg/dLHolzer Medical Center – JacksonCholesterol in VLDL [Mass/Vol]Cholesterol in VLDL [Mass/volume] in Serum or Plasma by calculation [facility] – JacksonGlucose mean value [Mass/volume] in Blood Estimated from glycated hemoglobinon 85-93-8837Crkdsrk glucose Estimated from glycated hemoglobin (Bld) [Mass/Vol]140 mg/dLHolzer Medical Center – Jackson Average glucose Estimated from glycated hemoglobin (Bld) [Mass/Vol]Glucose mean value [Mass/volume] in Blood Estimated from glycated hemoglobinHolzer Medical Center – JacksonHemoglobin A1c percentageon 24-97-9763JhV4i (Bld) [Mass fraction]6.5 %High4.3-5.6FChildren's Hospital for RehabilitationComment on above: Increased risk for diabetes: 5.7 - 6.4 diabetes: >6.4 glycemic control for adults with diabetes: <7.0Increased risk for diabetes: 5.7 - 6.4diabetes: >6.4glycemic control for adults with diabetes: <7.0HbA1c (Bld) [Mass fraction]Hemoglobin A1c percentageHigh4.3-5.6FChildren's Hospital for RehabilitationComment on above:Increased risk for diabetes: 5.7 - 6.4diabetes: >6.4glycemic control for adults with diabetes: <7.0No Panel Informationon 42-71-8245Uzcbrnlm Specific Antigen Total2.280 ng/mL0.000-4.000[facility]2.280 ng/mL0.000-4.000[facility] Prostate Specific Ag Free [Mass/volume] in Serum or Plasmaon 43-67-1698Msbn PSA [Mass/Vol]Prostate Specific Ag Free [Mass/volume] in Serum or PlasmaToledo Hospitalerum or plasma free prostate specific antigen (PSA)/total PSA ratioon 24-89-5579Fxse PSA/Total PSA [Mass fraction]11.0 % [facility] – JacksonComment on above:Based on the work of Catalona et al.DALJIT. 279(19):1542:47.1998 the percent free PSA may be used to determine the relative risk of prostate cancer in individual men.The percent probability of prostatecancer by patient age for men with non-suspicious FLORIAN results and total PSa between 4 and 10 ng/ml is as follows: % Free PSA 50 - 64 yrs. 65 - 75 yrs. 0 - 10 56% 55% 10 - 15 24% 35% 15 - 20 17% 23% 20 - 25 10% 20% >25 5% 9%Based on the work of Catalona et al.DALJIT. 279(19):1542:47.1998 the percent free PSA may be used to determine the relative risk of prostate cancer in individual men.The percent probability of prostatecancer by patient age for men with non-suspicious FLORIAN results and total PSa between 4 and 10 ng/ml is as follows:% Free PSA 50 - 64 yrs. 65 - 75 yrs. 0 - 10 56% 55% 10 - 15 24% 35% 15 - 20 17% 23% 20- 25 10% 20% >25 5% 9%Free PSA/Total PSA [Mass fraction]Serum or plasma free prostate specific antigen (PSA)/total PSA ratioHolzer Medical Center – JacksonComment on above:Based on the work of Jared et al.DALJIT. 279(19):1542:47.1998 the percent free PSA may [...] 24% 35% 15 - 20 17% 23% 20- 25 10% 20% >25 5% 9%Serum or plasma free prostate specific antigen measurement (mass/volume)on 43-29-5472Lloj PSA [Mass/Vol]0.260 ng/mLToledo Hospitalerum or plasma high density lipoprotein (HDL) cholesterol measurementon 87-91-6341Mtvbycfrbam in HDL [Mass/Vol]25 mg/oGIri50-25Antoehdrd59 Moss StreetComment on above:HDL CHOL ATP-III CLASSIFICATION Cardiovascular Risk HDL > or equal to 60 mg/dL LOW HDL < 40 mg/dL HIGHHDL CHOL ATP-III CLASSIFICATION Cardiovascular RiskHDL > or equal to 60 mg/dL LOWHDL < 40 mg/dL HIGHCholesterol in HDL [Mass/Vol]Serum or plasma high density lipoprotein (HDL) cholesterol sbljhgxcqskPnq14-07Lueumerwi[address] [place], [place] [address]Comment on above:HDL CHOL ATP-III CLASSIFICATION Cardiovascular RiskHDL > or equal to 60 mg/dL LOWHDL < 40 mg/dL HIGHSerum or plasma total cholesterol/high density lipoprotein (HDL) cholesterol mass fauzia 85-37-0543Xeptqmwfgok.total/Cholesterol in HDL [Mass ratio]4.5 {ratio}<5.0 [facility] – JacksonCholesterol.total/Cholesterol in HDL [Mass ratio]Serum or plasma total cholesterol/high density lipoprotein (HDL) cholesterol mass rat<5.0[facility] – JacksonTS DL <= 0.005 mIU/L Qnon 22-25-9555BPJ Qn0.22 m[IU]/LLow0.45-5.33[facility] TSH QnSerum or plasma thyroid stimulating hormone (TSH) measurement by high sensitivity metLow0.45-5.33[facility] – JacksonThyroxine (T4) free [Mass/volume] in Serum or Plasmaon 52-83-4120Euyp T4 [Mass/Vol]1.18 ng/dLHigh 0.61-1.12[facility] – JacksonFree T4 [Mass/Vol]Thyroxine (T4) free [Mass/volume] in Serum or PlasmaHigh0.61-1.12[facility] Triglyceride [Mass/volume] in Serum or Plasmaon 79-48-1706Hvjmsuvkyryf [Mass/Vol]147 mg/eE35-739JgowxfflrHolzer Medical Center – JacksonComment on above:TRIG ATP III CLASSIFICATION TRIG less than 150 mg/dL Normal TRIG 150-199 mg/dL Borderline high TRIG 200-500 mg/dL High TRIG greater than 500 mg/dL Very high Standard traceable to the Center for Disease Conrtrol and Prevention (CDC) test method.TRIG ATP III CLASSIFICATIONTRIG less than 150 mg/dL NormalTRIG 150-199 mg/dL Borderline highTRIG 200-500 mg/dL High TRIG greater than 500 mg/dL Very highStandard traceable to the Center for Disease Conrtrol and Prevention (CDC) test method.Triglyceride [Mass/Vol]Triglyceride [Mass/volume] in Serum or Plasma 35-149[facility] – JacksonComment on above:TRIG ATP III CLASSIFICATIONTRIG less than 150 mg/dL NormalTRIG 150-199 mg/dL Borderline highTRIG 200-500 mg/dL High TRIG greater than 500 mg/dL Very highStandard traceable to the Center for Disease Conrtrol and Prevention (CDC) test method. Teardrop cell detectionon 42-12-0947Dsrcgyabfm LM Ql (Bld)[facility] Vital Signs Date TimeVital SignValuePerforming MbibvkebjYtphijlm83-33-4849 15:16-0400Body pdqoot283.8 cmRaj Ochoa MD Work Phone: [facility]09-16-2025 15:16-0400 Body mass index (BMI) [Ratio]29.2 kg/w6ErqxochHelen Ochoa MD Work Phone: [phone] [place], [place] [address]09-16-2025 15:16-0400 Body qflytv98.64 kgHelen Ochoa MD Work Phone: [phone] [place], [place] 526[address]09-16-2025 15:16-0400 Diastolic blood zgluoeyp17 mm[Hg]Helen Ochoa MD Work Phone: [phone] [place], [place] 526[address]09-16-2025 15:16-0400 Heart rate78 /minHelen Ochoa MD Work Phone: [phone] [place], [place] [address]09-16-2025 15:16-0400 Respiratory rate16 /minHelen Ochoa MD Work Phone: [phone] [place], [place] [address]09-16-2025 15:16-0400 SaO2% (BldA) [Mass fraction]98 %Helen Ochoa MD Work Phone: [phone] [place], [place] 526[address]09-16-2025 15:16-0400 Systolic blood ybaglrxd014 mm[Hg]Helen Ochoa MD Work Phone: [phone] [place], [place] 526[address]06-25-2025 14:04-0400 Body fgcpep161.8 cmRaj Ochoa MD Work Phone: [phone] [place], [place] [address]06-25-2025 14:04-0400 Body mass index (BMI) [Ratio]29.7 kg/v6QkupyajHelen Ochoa MD Work Phone: [phone] [place], [place] [address]06-25-2025 14:04-0400 Body rmaircactkv60.7 [degF]Helen Ochoa MD Work Phone: [phone] [address] [place], [place] 5260106-25-2025 14:04-0400 Body .89 kgHelen Ochoa MD Work Phone: 1(979)[address] [place], [place] 5260106-25-2025 14:04-0400 Diastolic blood jswbukow09 mm[Hg]Helen Ochoa MD Work Phone: 1(131)[address] [place], [place] 5260106-25-2025 14:04-0400 Heart rate72 /minHelen Ochoa MD Work Phone: 1(419)[address] [place], [place] 5260106-25-2025 14:04-0400 Respiratory rate16 /minHelen Ochoa MD Work Phone: 1(284)[address] [place], [place] 5260106-25-2025 14:04-0400 SaO2% (BldA) [Mass fraction]97 %Helen Ochoa MD Work Phone: 1(241)[address] [place], [place] 5260106-25-2025 14:04-0400 Systolic blood eetvonlo649 mm[Hg]Helen Ochoa MD Work Phone: 1(796)[address] [place], [place] 5260105-20-2025 14:40-0400 Body twnzoj038.8 Asael Ochoa MD Work Phone: 1(392)[address] [place], [place] 5260105-20-2025 14:40-0400 Body mass index (BMI) [Ratio]29.2 kg/h6JenzhpfHelen Ochoa MD Work Phone: 1(163)[address] [place], [place] 5260105-20-2025 14:40-0400 Body ebvzdx84.53 kgHelen Ochoa MD Work Phone: 1(285)[address] [place], [place] 5260105-20-2025 14:40-0400 Diastolic blood vyzqutno65 mm[Hg]Helen Ochoa MD Work Phone: 1(015)[address] [place], [place] 5260105-20-2025 14:40-0400 Heart rate74 /Chelsea Ochoa MD Work Phone: 1(531)[address] [place], [place] 5260105-20-2025 14:40-0400 Respiratory rate16 /Chelsea Ochoa MD Work Phone: 1(021)[address] [place], [place] 5260105-20-2025 14:40-0400 SaO2% (BldA) [Mass fraction]99 %Helen Ochoa MD Work Phone: 1(950)[address] [place], [place] 5260105-20-2025 14:40-0400 Systolic blood aynqbbcz563 mm[Hg]Helen Ochoa MD Work Phone: 1(097)[address] [place], [place] 5260102-20-2025 13:03-0500 Body iwuast379.8 Asael Ochoa MD Work Phone: 1(419)[address] [place], [place] 5260102-20-2025 13:03-0500 Body mass index (BMI) [Ratio]30.8 kg/m4HsmapihHelen Ochoa MD Work Phone: 3(726)[address] [place], [place] 5260102-20-2025 13:03-0500 Body lnbcxgplcut16.3 [degF]Helen Ochoa MD Work Phone: 6(985)[address] [place], [place] 5260102-20-2025 13:03-0500 Body kaiihe81.52 kgHelen Ochoa MD Work Phone: 1(122)[address] [place], [place] 5260102-20-2025 13:03-0500 Diastolic blood uphlknsm68 mm[Hg]Helen Ochoa MD Work Phone: 1(154)[address] [place], [place] 5260102-20-2025 13:03-0500 Heart rate74 /minHelen Ochoa MD Work Phone: 4(162)[address] [place], [place] 5260102-20-2025 13:03-0500 Respiratory rate16 /minHelen Ochoa MD Work Phone: 1(603)[address] [place], [place] 5260102-20-2025 13:03-0500 SaO2% (BldA) [Mass fraction]99 %Helen Ochoa MD Work Phone: 0(189)[address] [place], [place] 5260102-20-2025 13:03-0500 Systolic blood qltohdna417 mm[Hg]Helen Ochoa MD Work Phone: 1(652)[address] [place], [place] 5260102-18-2025 15:20-0500 Body txoknu064.8 Asael Ochoa MD Work Phone: 8(116)[address] [place], [place] 5260102-18-2025 15:20-0500 Body mass index (BMI) [Ratio]30.9 kg/i7OmzcvasHelen Ochoa MD Work Phone: 3(624)[address] [place], [place] 5260102-18-2025 15:20-0500 Body pwrfvu52.74 kgHelen Ochoa MD Work Phone: 3(225)[address] [place], [place] 5260102-18-2025 15:20-0500 Diastolic blood egnwazsa89 mm[Hg]Helen Ochoa MD Work Phone: [facility]02-18-2025 15:20-0500 Heart rate85 /Chelsea Ochoa MD Work Phone: [facility]02-18-2025 15:20-0500 Respiratory rate16 /Chelsea Ochoa MD Work Phone: [facility]02-18-2025 15:20-0500 SaO2% (BldA) [Mass fraction]99 %Helen Ochoa MD Work Phone: [facility]02-18-2025 15:20-0500 Systolic blood xejlpxdh974 mm[Hg]Helen Ochoa MD Work Phone: [facility]01-15-2025 11:10-0500 Blood Pressure LocationKathy Lue [facility]01-15-2025 11:10-0500Diastolic blood mm[Hg]Orquidea Lue [facility]01-15-2025 11:10-0500Heart rate82 /minKathy Lue [facility]01-15-2025 11:10-0500Respiratory rate18 /minKathy Lue [facility]01-15-2025 11:10-0500Systolic blood pzuohrwr610 mm[Hg]Orquidea Lue [facility]12-24-2024 11:29-0500Blood Pressure LocationAurora Orzech [facility]12-24-2024 11:29-0500Diastolic blood itjlnmvl23 mm[Hg]Makayla Orzech [facility]12-24-2024 11:29-0500Heart rate73 /minAurora Orzech [facility]12-24-2024 11:29-0500Systolic blood mm[Hg]Makayla Orabich [facility]12-18-2024 15:35-0500Body owfumq374.8 Asael Ochoa MD Work Phone: 3(258)[address] [place], [place] 5260112-18-2024 15:35-0500 Body mass index (BMI) [Ratio]29.7 kg/f2KnvbwvgHelen Ochoa MD Work Phone: 1(925)[address] [place], [place] 5260112-18-2024 15:35-0500 Body xpuxwplwhqy92.1 [degF]Helen Ochoa MD Work Phone: 6(554)[address] [place], [place] 5260112-18-2024 15:35-0500 Body dlozrg92.95 kgHelen Ochoa MD Work Phone: 4(432)[address] [place], [place] 5260112-18-2024 15:35-0500 Diastolic blood vsustbnj90 mm[Hg]Helen Ochoa MD Work Phone: 1(029)[address] [place], [place] 5260112-18-2024 15:35-0500 Heart rate75 /Chelsea Ochoa MD Work Phone: 0(286)[facility] [place], [place] 7833212-18-2024 15:35-0500 Respiratory rate16 /Chelsea Ochoa MD Work Phone: 0(182)[address] [place], [place] 5260112-18-2024 15:35-0500 SaO2% (BldA) [Mass fraction]99 %Helen Ochoa MD Work Phone: 0(799)[address] [place], [place] 5260112-18-2024 15:35-0500 Systolic blood zkmaerks621 mm[Hg]Helen Ochoa MD Work Phone: 4(039)[address] [place], [place] 5260111-13-2024 14:22-0500 Diastolic blood mgscmeii72 mm[Hg]Helen Ochoa MD Work Phone: [facility]11-13-2024 14:22-0500 Heart rate73 /minHelen Ochoa MD Work Phone: [facility]11-13-2024 14:22-0500 SaO2% (BldA) [Mass fraction]99 %Helen Ochoa MD Work Phone: [facility]11-13-2024 14:22-0500 Systolic blood wdmyhzda788 mm[Hg]Helen Ohcoa MD Work Phone: 1(683)889-[address] [place], [place] 7833211-13-2024 14:21-0500 Body aanguk09.7 kgHelen Ochoa MD Work Phone: [address] [place], [place] 0136710-25-2024 11:44-0400 Blood Pressure LocationKathy Lue [facility] [place] 762250-25-2024 11:44-0400Diastolic blood feyskuar28 mm[Hg]Orquidea Lue [facility] [place] 762250-25-2024 11:44-0400Heart rate67 /minKathy Lue [facility] [place] 762250-25-2024 11:44-0400Systolic blood besleuif430 mm[Hg]Orquidea Lue [facility] [place] 762250-20-2024 13:54-0400Body xkwigiunjbv49.9 [degF]MD Helen Ochoa Work Phone: [facility]10-20-2024 13:54-0400 Diastolic blood qlwnxucb44 mm[Hg]MD Helen Ochoa Work Phone: [facility]10-20-2024 13:54-0400 Heart rate68 /minMD Helen Ochoa Work Phone: 1(651)823-[address] [place], [place] 7833210-20-2024 13:54-0400 Respiratory rate18 /minMD Helen Ochoa Work Phone: 1(629)[address] [place], [place] 5260110-20-2024 13:54-0400 SaO2% (BldA) [Mass fraction]97 %MD Helen Ochoa Work Phone: 1(022)[address] [place], [place] 5260110-20-2024 13:54-0400 Systolic blood sxdxcewk428 mm[Hg]MD Helen Ochoa Work Phone: 1(902)[address] [place], [place] 5260110-20-2024 06:00-0400 Body sgvoig37 kgMD Helen Ochoa Work Phone: 1(884)[address] [place], [place] 5260110-19-2024 08:40-0400 Inhaled oxygen flow rate6 L/minMD Helen Ochoa Work Phone: 1(322)[address] [place], [place] 5260110-18-2024 14:24-0400 Body fkpzto602.8 cmMD Helen Ochoa Work Phone: 1(018)[address] [place], [place] 5260110-17-2024 19:44-0400 Body gyifng147.8 cmMD Helen Ochoa Work Phone: 1(694)[address] [place], [place] 5260110-17-2024 19:44-0400 Body rglhbzoydpa80.6 [degF]MD Helen Ochoa Work Phone: 1(802)[address] [place], [place] 5260110-17-2024 19:44-0400 Body trdvwe26.7 kgMD Helen Ochoa Work Phone: 1(175)[address] [place], [place] 5260110-17-2024 19:44-0400 Diastolic blood ebfwokdo99 mm[Hg]MD Helen Ochoa Work Phone: 1(974)[address] [place], [place] 5260110-17-2024 19:44-0400 Heart rate80 /minMD Helen Ochoa Work Phone: 1(276)[address] [place], [place] 5260110-17-2024 19:44-0400 Respiratory rate16 /minMD Helen Ochoa Work Phone: 1(398)[address] [place], [place] 5260110-17-2024 19:44-0400 SaO2% (BldA) [Mass fraction]95 %MD Helen Ochoa Work Phone: 1(428)[address] [place], [place] 5260110-17-2024 19:44-0400 Systolic blood mm[Hg]MD Helen Ochoa Work Phone: 1(232)[address] [place], [place] 5260110-17-2024 19:32-0400 Body cjmedjqasdz05 [degF]MD Helen Ochoa Work Phone: 1(322)[address] [place], [place] 5260110-17-2024 19:32-0400 Diastolic blood nnbezazc35 mm[Hg]MD Helen Ochoa Work Phone: 1(813)[address] [place], [place] 5260110-17-2024 19:32-0400 Heart rate72 /minMD Helen Ochoa Work Phone: 1(114)[address] [place], [place] 5260110-17-2024 19:32-0400 Respiratory rate20 /minMD Helen Ochoa Work Phone: 1(897)[address] [place], [place] 5260110-17-2024 19:32-0400 SaO2% (BldA) [Mass fraction]98 %MD Helen Ochoa Work Phone: 1(736)[address] [place], [place] 5260110-17-2024 19:32-0400 Systolic blood veinwxul376 mm[Hg]MD Helen Ochoa Work Phone: 1(916)[address] [place], [place] 5260110-17-2024 15:31-0400 Body vyumtw186.26 cmMD Helen Ochoa Work Phone: 1(108)[address] [place], [place] 5260110-17-2024 15:31-0400 Body pilnbg23.6 kgMD Helen Ochoa Work Phone: 1(437)[address] [place], [place] 5260110-17-2024 14:33-0400 Body vysdbj734.26 cmMD Helen Ochoa Work Phone: 1(725)[address] [place], [place] 5260110-17-2024 14:33-0400 Body mass index (BMI) [Ratio]30.4 kg/m2MD Helen Ochoa Work Phone: 1(890)[address] [place], [place] 5260110-17-2024 14:33-0400 Body .9 [degF]MD Helen Ochoa Work Phone: 1(054)339-[address] [place], [place] 7833210-17-2024 14:33-0400 Body .44 kgMD Helen Ochoa Work Phone: 1(869)[address] [place], [place] 5260110-17-2024 14:33-0400 Diastolic blood xvoakbmr21 mm[Hg]MD Helen Ochoa Work Phone: 1(356)[address] [place], [place] 5260110-17-2024 14:33-0400 Heart rate68 /minMD Helen Ochoa Work Phone: 1(199)[address] [place], [place] 5260110-17-2024 14:33-0400 Respiratory rate16 /minMD Helen Ochoa Work Phone: 1(901)[address] [place], [place] 5260110-17-2024 14:33-0400 SaO2% (BldA) [Mass fraction]98 %MD Helen Ochoa Work Phone: 1(545)[address] [place], [place] 5260110-17-2024 14:33-0400 Systolic blood iuxsejov476 mm[Hg]MD Helen Ochoa Work Phone: 1(034)[address] [place], [place] 5260107-23-2024 13:29-0400 Body jiyxny142.26 cmMD Helen Ochoa Work Phone: 1(906)[address] [place], [place] 5260107-23-2024 13:29-0400 Body mass index (BMI) [Ratio]29.7 kg/m2MD Helen Ochoa Work Phone: 1(413)[address] [place], [place] 5260107-23-2024 13:29-0400 Body .4 [degF]MD Helen Ochoa Work Phone: 1(785)[address] [place], [place] 5260107-23-2024 13:29-0400 Body dcupnu51.22 kgMD Helen Ochoa Work Phone: 1(479)[address] [place], [place] 5260107-23-2024 13:29-0400 Diastolic blood mpoolwih63 mm[Hg]MD Helen Ochoa Work Phone: 1(038)[address] [place], [place] 5260107-23-2024 13:29-0400 Heart rate82 /minMD Helen Ochoa Work Phone: 1(630)[address]07-23-2024 13:29-0400 Respiratory rate18 /minMD Helen Ochoa Work Phone: 1(240)[address] [place], [place] 5260107-23-2024 13:29-0400 SaO2% (BldA) [Mass fraction]98 %MD Helen Ochoa Work Phone: 1(097)[address] [place], [place] 5260107-23-2024 13:29-0400 Systolic blood mm[Hg]MD Helen Ochoa Work Phone: 1(389)[address] [place], [place] 5260106-20-2024 12:57-0400 Body jctoyq303.26 cmMD Helen Ochoa Work Phone: 1(644)[address] [place], [place] 5260106-20-2024 12:57-0400 Body mass index (BMI) [Ratio]30.1 kg/m2MD Helen Ochoa Work Phone: 1(911)[address] [place], [place] 5260106-20-2024 12:57-0400 Body qqsirylqtux08.8 [degF]MD Helen Ochoa Work Phone: 1(565)[address] [place], [place] 5260106-20-2024 12:57-0400 Body ewoekr29.53 kgMD Helen Ochoa Work Phone: 1(578)[address] [place], [place] 5260106-20-2024 12:57-0400 Diastolic blood cvghqkla54 mm[Hg]MD Helen Ochoa Work Phone: 1(470)[address] [place], [place] 5260106-20-2024 12:57-0400 Heart rate80 /minMD Helen Ochoa Work Phone: 5(607)[address] [place], [place] 5260106-20-2024 12:57-0400 Respiratory rate16 /minMD Helen Ochoa Work Phone: 1(515)[address] [place], [place] 5260106-20-2024 12:57-0400 SaO2% (BldA) [Mass fraction]98 %MD Helen Ochoa Work Phone: 1(771)[address] [place], [place] 5260106-20-2024 12:57-0400 Systolic blood jxrjrwsa492 mm[Hg]MD Helen Ochoa Work Phone: [facility]06-13-2024 10:37-0400 Body dewxzrduqkf74.6 [degF]Orquidea Lue [facility]06-13-2024 10:37-0400Diastolic blood mm[Hg]Orquidea Lue [facility]06-13-2024 10:37-0400Heart rate68 /minKathy Lue [facility]06-13-2024 10:37-0400Respiratory rate16 /minKathy Lue [facility]06-13-2024 10:37-0400Systolic blood axqifywd659 mm[Hg]Orquidea Lue [facility]06-07-2024 12:00-0400Body fhbcjzrqynx47.1 [degF]MD Helen Ochoa Work Phone: [facility]06-07-2024 12:00-0400 Diastolic blood vyxgwjxq84 mm[Hg]MD Helen Ochoa Work Phone: [facility]06-07-2024 12:00-0400 Heart rate73 /minMD Helen Ochoa Work Phone: [facility]06-07-2024 12:00-0400 Respiratory rate16 /minMD Helen Ochoa Work Phone: [facility]06-07-2024 12:00-0400 SaO2% (BldA) [Mass fraction]96 %MD Helen Ohcoa Work Phone: [facility]06-07-2024 12:00-0400 Systolic blood qkneiwis539 mm[Hg]MD Helen Ochoa Work Phone: 1(747)526-[address] [place], [place] 7833206-07-2024 06:00-0400 Body auoiod48.6 kgMD Helen Ochoa Work Phone: 1(300)[address] [place], [place] 5260106-06-2024 16:34-0400 Body toffag655.8 cmMD Helen Ochoa Work Phone: 1(442)[address] [place], [place] 5260106-04-2024 18:10-0400 Diastolic blood xtjrnipn82 mm[Hg]MD Helen Ochoa Work Phone: 1(363)[address]06-04-2024 18:10-0400 Heart rate67 /minMD Helen Ochoa Work Phone: 1(402)[address] [place], [place] 5260106-04-2024 18:10-0400 Respiratory rate18 /minMD Helen Ochoa Work Phone: 1(048)[address] [place], [place] 5260106-04-2024 18:10-0400 SaO2% (BldA) [Mass fraction]100 %MD Helen Ochoa Work Phone: 1(032)[address]06-04-2024 18:10-0400 Systolic blood mqpeuait429 mm[Hg]MD Helen Ochoa Work Phone: 1(317)[address] [place], [place] 5260106-04-2024 13:47-0400 Body iczxoe608.8 cmMD Helen Ochoa Work Phone: 9(488)[address] [place], [place] 5260106-04-2024 13:47-0400 Body tyapsihpxzh34.7 [degF]MD Helen Ochoa Work Phone: 1(284)[address]06-04-2024 13:47-0400 Body .2 kgMD Helen Ochoa Work Phone: 6(929)[address] [place], [place] 5260103-11-2024 15:19-0400 Body tgokcd463.34 cmMD Helen Ochoa Work Phone: 6(501)[address]03-11-2024 15:19-0400 Body mass index (BMI) [Ratio]28.9 kg/m2MD Helen Ochoa Work Phone: 1(419)[address] [place], [place] 5260103-11-2024 15:19-0400 Body zdcdibuwkkk44.1 [degF]MD Helen Ochoa Work Phone: 1(377)[address] [place], [place] 5260103-11-2024 15:19-0400 Body nbxkil30.06 kgMD Helen Ochoa Work Phone: 5(250)[address] [place], [place] 5260103-11-2024 15:19-0400 Diastolic blood wothkujz62 mm[Hg]MD Helen Ochoa Work Phone: 1(262)[address] [place], [place] 5260103-11-2024 15:19-0400 Heart rate89 /minMD Helen Ochoa Work Phone: 1(352)[address] [place], [place] 5260103-11-2024 15:19-0400 Respiratory rate18 /minMD Helen Ochoa Work Phone: 1(324)[address] [place], [place] 5260103-11-2024 15:19-0400 SaO2% (BldA) [Mass fraction]97 %MD Helen Ochoa Work Phone: 1(640)[address] [place], [place] 5260103-11-2024 15:19-0400 Systolic blood jipotowu597 mm[Hg]MD Helen Ochoa Work Phone: 4(436)[address] [place], [place] 5260102-15-2024 13:59-0500 Body pcnchy088.34 cmMD Helen Ochoa Work Phone: 8(361)[address] [place], [place] 5260102-15-2024 13:59-0500 Body mass index (BMI) [Ratio]29.1 kg/m2MD Helen Ochoa Work Phone: 1(268)[address] [place], [place] 5260102-15-2024 13:59-0500 Body wtigokktiip20.2 [degF]MD Helen Ochoa Work Phone: 9(390)[address] [place], [place] 5260102-15-2024 13:59-0500 Body npltxo94.8 kgMD Helen Ochoa Work Phone: 9(399)[address] [place], [place] 5260102-15-2024 13:59-0500 Diastolic blood zxharsfg77 mm[Hg]MD Helen Ochoa Work Phone: 1(980)[address] [place], [place] 5260102-15-2024 13:59-0500 Heart rate96 /minMD Helen Ochoa Work Phone: [facility]02-15-2024 13:59-0500 Respiratory rate16 /minMD Helen Ochoa Work Phone: [facility]02-15-2024 13:59-0500 SaO2% (BldA) [Mass fraction]96 %MD Helen Ochoa Work Phone: [facility]02-15-2024 13:59-0500 Systolic blood decyqavu053 mm[Hg]MD Helen Ochoa Work Phone: [facility]12-06-2023 09:17-0500 Blood Pressure LocationKathy Lue [facility]12-06-2023 09:17-0500Diastolic blood efokibks95 mm[Hg]Orquidea Lue [facility]12-06-2023 09:17-0500Heart rate74 /minKathy Lue [facility]12-06-2023 09:17-0500Systolic blood acfsyeof650 mm[Hg]Orquidea Lue [facility]10-12-2023 13:35-0400Body hjbsuhonusx67.8 [degF]MD Helen Ochoa Work Phone: [facility]10-12-2023 13:35-0400 Body imqftq84.06 kgMD Helen Ochoa Work Phone: [facility]10-12-2023 13:35-0400 Diastolic blood elrmoezl61 mm[Hg]MD Helen Ochoa Work Phone: [facility]10-12-2023 13:35-0400 Heart rate85 /minMD Helen Ochoa Work Phone: [facility]10-12-2023 13:35-0400 Respiratory rate16 /minMD Helen Ochoa Work Phone: [facility]10-12-2023 13:35-0400 SaO2% (BldA) [Mass fraction]99 %MD Helen Ochoa Work Phone: [facility]10-12-2023 13:35-0400 Systolic blood ddreejlw769 mm[Hg]MD Helen Ochoa Work Phone: [facility]06-30-2023 08:57-0400 Blood Pressure LocationKathy Lue [facility]06-30-2023 08:57-0400Diastolic blood icdggrzt61 mm[Hg]Orquidea Lue [facility]06-30-2023 08:57-0400Heart rate67 /minKathy Lue [facility]06-30-2023 08:57-0400Systolic blood swyrwpkx405 mm[Hg]Orquidea Lue [facility]06-28-2023 12:28-0400Body ueyzzz392.3 cmPacc 2 Work Phone: [facility]06-28-2023 12:28-0400Body temperature 97.7 [degF]Pacc 2 Work Phone: [facility]06-28-2023 12:28-0400Body ihutpn54.98 kgPacc 2 Work Phone: [facility]06-28-2023 12:28-0400Diastolic blood etcwuflq64 mm[Hg]Pacc 2 Work Phone: [facility]06-28-2023 12:28-0400Heart rate66 /min Pacc 2 Work Phone: [facility]06-28-2023 12:28-0400Respiratory rate 16 /minPacc 2 Work Phone: [facility]06-28-2023 12:28-3498FhF1% (BldA) [Mass fraction]100 %Pacc 2 Work Phone: [facility]06-28-2023 12:28-0400Systolic blood thirxiyy035 mm[Hg]Pacc 2 Work Phone: [facility]06-08-2023 14:29-0400Body temperature 97.8 [degF]MD Helen Ochoa Work Phone: [facility]06-08-2023 14:29-0400 Body ywysyu965.31 kgMD Helen Ochoa Work Phone: [facility]06-08-2023 14:29-0400 Diastolic blood eijnospr76 mm[Hg]MD Helen Ochoa Work Phone: [facility]06-08-2023 14:29-0400 Heart rate68 /minMD Helen Ochoa Work Phone: [facility]06-08-2023 14:29-0400 Respiratory rate16 /minMD Helen Ochoa Work Phone: [facility]06-08-2023 14:29-0400 SaO2% (BldA) [Mass fraction]98 %MD Helen Ochoa Work Phone: [facility]06-08-2023 14:29-0400 Systolic blood wzssdhaw721 mm[Hg]MD Helen Ochoa Work Phone: [facility]05-31-2023 14:20-0400 Body ufuhxr785.34 Robert Crain Other [employer] Other [id number] 14:20-0400Body mass index (BMI) [Ratio] 29.31 kg/m2Price Crain Other [employer] Other 05-31-2023 14:20-0400Body sjmuqfovpvz36.4 [degF]Price Crain Other [employer] Other 05-31-2023 14:20-0400Body bycjjl96.35 kgIvanrajinder Crain Other [employer] Other 05-31-2023 14:20-0400Diastolic blood raweevuh24 mm[Hg] Price Crain Other [employer] Other 05-31-2023 14:20-0400Respiratory rate20 /minIvanrajinder Crain Other [employer] Other 05-31-2023 14:20-2011GvK7% (BldA) [Mass fraction]98 % Price Crain Other [employer] Other 05-31-2023 14:20-0400Systolic blood qfybgxpp572 mm[Hg] Price Crain Other [employer] Other Phone: [phone] 09:14-0400Diastolic blood jlpeuubm63 mm[Hg] Orquidea Lue [facility]05-05-2023 09:14-0400Mean blood dviqvpzo603 mm[Hg]Orquidea Lue [facility]05-05-2023 09:14-0400Systolic blood alzckywo824 mm[Hg]Orquidea Lue [facility]05-05-2023 08:58-0400Blood Pressure LocationKathy Lue [facility]05-05-2023 08:58-0400Diastolic blood pkzyzikq89 mm[Hg]Orquidea Lue [facility]05-05-2023 08:58-0400Heart rate81 /minKathy Lue [facility]05-05-2023 08:58-0400Systolic blood zreqgflz864 mm[Hg]Orquidea Lue [facility]04-21-2023 11:12-0400Blood Pressure LocationKathy Lue [facility]04-21-2023 11:12-0400Diastolic blood okqjjbju16 mm[Hg]Orquidea Lue [facility]04-21-2023 11:12-0400Heart rate70 /minKathy Lue [facility] [place] [address]-21-2023 11:12-0400Systolic blood ecuueexz610 mm[Hg]Orquidea Lue [facility]03-20-2023 12:47-0400Blood Pressure LocationKathy Lue [facility]03-20-2023 12:47-0400Diastolic blood uwsclafm91 mm[Hg]Orquidea Lue [facility]03-20-2023 12:47-0400Heart rate77 /minKathy Lue [facility]03-20-2023 12:47-0400Systolic blood nvujfxtc351 mm[Hg]Orquidea Lue [facility]03-02-2023 10:26-0500Blood Pressure LocationKathy Lue [facility]03-02-2023 10:26-0500Diastolic blood upqmfqhy15 mm[Hg]Orquidea Lue [facility]03-02-2023 10:26-0500Heart rate82 /minKathy Lue [facility]03-02-2023 10:26-0500Respiratory rate16 /minKathy Lue [facility]03-02-2023 10:26-0500Systolic blood dwhlidyp221 mm[Hg]Orquidea Lue [facility]01-18-2023 08:47-0500Body kabstesrhed03.9 [degF]MD Helen Ochoa Work Phone: [facility]01-18-2023 08:47-0500 Body npsiwf97.8 kgMD Helen Ochoa Work Phone: [facility]01-18-2023 08:47-0500 Diastolic blood nthucenl28 mm[Hg]MD Helen Ochoa Work Phone: [facility] [place]01-18-2023 08:47-0500 Heart rate98 /minMD Helen Ochoa Work Phone: [facility] [place]01-18-2023 08:47-0500 Respiratory rate16 /minMD Helen Ochoa Work Phone: 1(996)[facility] [place], [place] 7833201-18-2023 08:47-0500 SaO2% (BldA) [Mass fraction]99 %MD Helen Ochoa Work Phone: 1(042)[address] [place], [place] 5260101-18-2023 08:47-0500 Systolic blood ibudwkcc464 mm[Hg]MD Helen Ochoa Work Phone: 1(012)[address] [place], [place] 5260112-12-2022 10:14-0500 Body lyqrnkbndma44.8 [degF]MD Helen Ochoa Work Phone: 1(250)[address] [place], [place] 5260112-12-2022 10:14-0500 Body .2 kgMD Helen Ochoa Work Phone: 1(601)[address] [place], [place] 5260112-12-2022 10:14-0500 Diastolic blood mm[Hg]MD Helen Ochoa Work Phone: 1(186)[address] [place], [place] 5260112-12-2022 10:14-0500 Heart rate77 /minMD Helen Ochoa Work Phone: 1(402)[address] [place], [place] 5260112-12-2022 10:14-0500 Respiratory rate16 /minMD Helen Ochoa Work Phone: 1(288)[address] [place], [place] 5260112-12-2022 10:14-0500 SaO2% (BldA) [Mass fraction]98 %MD Helen Ochoa Work Phone: 1(074)[facility] [place], [place] 7833212-12-2022 10:14-0500 Systolic blood hsotwwcc169 mm[Hg]MD Helen Ochoa Work Phone: 1(140)[facility] [place], [place] 7833211-18-2022 13:38-0500 Diastolic blood yljmnlqq87 mm[Hg]Orquidea Issa [facility] [place] 867561-18-2022 13:38-0500Heart rate83 /minKathy Lue [facility] [place] 762251-18-2022 13:38-0500Mean blood kwvheaun763 mm[Hg]Orquidea Lue [facility] [place] 762251-18-2022 13:38-0500Systolic blood cspsicop040 mm[Hg]Orquidea Lue [facility] [place] 762251-11-2022 10:17-0500Body mvatzsisrtc78.8 [degF]MD Helen Ochoa Work Phone: 1(398)547-[address] [place], [place] 7833211-11-2022 10:17-0500 Body yxcczi66.81 kgMD Helen Ochoa Work Phone: 1(051)[address]11-11-2022 10:17-0500 Diastolic blood gzvzpiuw11 mm[Hg]MD Helen Ochoa Work Phone: 1(062)710-[address] [place], [place] 7833211-11-2022 10:17-0500 Heart rate52 /minMD Helen Ochoa Work Phone: 1(313)180-[address] [place], [place] 7833211-11-2022 10:17-0500 Respiratory rate16 /minMD Helen Ochoa Work Phone: 1(473)234-[address] [place], [place] 7833211-11-2022 10:17-0500 SaO2% (BldA) [Mass fraction]98 %MD Helen Ochoa Work Phone: [address] [place], [place] 0136711-11-2022 10:17-0500 Systolic blood yvkksiwb584 mm[Hg]MD Helen Ochoa Work Phone: 1(849)018-[address] [place], [place] 7833210-19-2022 10:59-0400 Blood Pressure LocationKathy Lue [facility]10-19-2022 10:59-0400Diastolic blood icxcswtr59 mm[Hg]Orquidea Lue [facility]10-19-2022 10:59-0400Heart rate68 /minKathy Lue [facility]10-19-2022 10:59-0400Respiratory rate16 /minKatpal Lue [facility]10-19-2022 10:59-0400Systolic blood xmlamkao293 mm[Hg]Orquidea Issa [facility]10-07-2022 11:13-0400Body krskacvptmo23.8 [degF]PHYSICIAN NO [facility]10-07-2022 11:13-0400Body wkxfvo01.42 kg PHYSICIAN NO [facility]10-07-2022 11:13-0400 Diastolic blood afumbagc10 mm[Hg]PHYSICIAN NO [facility]10-07-2022 11:13-0400Heart rate78 /minPHYSICIAN NO [facility]10-07-2022 11:13-0400Respiratory rate18 /minPHYSICIAN [facility]10-07-2022 11:13-9053JpO0% (BldA) [Mass fraction]98 %PHYSICIAN NO [facility]10-07-2022 11:13-0400Systolic blood qbxhotft949 mm[Hg]PHYSICIAN NO [facility]09-14-2022 12:10-0400Diastolic blood rwyfhfih06 mm[Hg]MD Helen Ochoa Work Phone: [facility] [place]09-14-2022 12:10-0400 Heart rate66 /minMD Helen Ochoa Work Phone: [facility] [place]09-14-2022 12:10-0400 Respiratory rate16 /minMD Helen Ochoa Work Phone: [facility] [place]09-14-2022 12:10-0400 SaO2% (BldA) [Mass fraction]97 %MD Helen Ochoa Work Phone: [facility] [place]09-14-2022 12:10-0400 Systolic blood inumzyts475 mm[Hg]MD Helen Ochoa Work Phone: 1(709)[facility] [place], [place] 7833209-14-2022 09:30-0400 Body ajxajp543.34 cmMD Helen Ochoa Work Phone: 1(416)[address] [place], [place] 5260109-14-2022 09:30-0400 Body dushts67.52 kgMD Helen Ochoa Work Phone: 1(860)[address] [place], [place] 5260106-22-2022 11:50-0400 Body fexgjpruvaw59.7 [degF]MD Helen Ochoa Work Phone: 1(334)[address] [place], [place] 5260106-22-2022 11:50-0400 Body njetme52.98 kgMD Helen Ochoa Work Phone: 1(264)[address] [place], [place] 5260106-22-2022 11:50-0400 Diastolic blood vwxgqrie83 mm[Hg]MD Helen Ochoa Work Phone: 1(009)[address] [place], [place] 5260106-22-2022 11:50-0400 Heart rate87 /minMD Helen Ochoa Work Phone: 1(026)[address] [place], [place] 5260106-22-2022 11:50-0400 Respiratory rate16 /minMD Helen Ochoa Work Phone: 1(242)[address] [place], [place] 5260106-22-2022 11:50-0400 SaO2% (BldA) [Mass fraction]99 %MD Helen Ochoa Work Phone: 1(028)386-[address] [place], [place] 7833206-22-2022 11:50-0400 Systolic blood kqztxieo032 mm[Hg]MD Helen Ocoha Work Phone: 1(369)[facility] [place], [place] 7833206-14-2022 08:48-0400 Blood Pressure Kathe Seals Jr. [facility] 06-14-2022 08:48-0400Diastolic blood hwrfciqd11 mm[Hg] Patsy Seals Jr. [facility] 06-14-2022 08:48-0400Heart rate78 /Homar Seals Jr. [facility] 06-14-2022 08:48-0400Respiratory rate16 /Homar Seals Jr. [facility] 06-14-2022 08:48-0400Systolic blood onfjdqlq640 mm[Hg] Patsy Seals Jr. [facility] 04-26-2022 10:38-0400Blood Pressure LocationPatsy Seals Jr. [facility] 04-26-2022 10:38-0400Diastolic blood wjoulprt47 mm[Hg] Patsy Seals Jr. [facility] 04-26-2022 10:38-0400Heart rate79 /Homar Seals Jr. [facility] 04-26-2022 10:38-0400Systolic blood jxknyujo733 mm[Hg] Patsy Seals Jr. [facility] 03-15-2022 16:00-0400Body tuxvbg277.34 Robert Crain Other [employer] Other 03-15-2022 16:00-0400Body mass index (BMI) [Ratio] 27.67 kg/m2Price Crain Other [employer] Other 03-15-2022 16:00-0400Body iaovauqlmwl13.1 [degF]Price Crain Other [employer] Other 03-15-2022 16:00-0400Body .99 kgPrice Crain Other [employer] Other 03-15-2022 16:00-0400Diastolic blood xiaqqcsl99 mm[Hg] Price Crain Other [employer] Other 03-15-2022 16:00-0400Respiratory rate20 /minPrice Crain Other [employer] Other 03-15-2022 16:00-0586ZpW6% (BldA) [Mass fraction]97 % Price Crain Other [employer] Other 03-15-2022 16:00-0400Systolic blood seqgwith472 mm[Hg] Price Crain Other [employer] Other 10-14-2021 14:41-0400Body cvqyfz821.8 cmMD Helen Ochoa Work Phone: [facility] [place] Encounters Encounter DateEncounter TypeCare ProviderFacilityStart: 99-00-3264elhizftuoy Orquidea MercadoeFacility:EU [place]Start: 06-21-2025 End: 36-74-5851qxacxhttnyRbnir M. LueFacility:EU [place]Start: 06-21-2025 End: 67-55-9401Jfndfix encounter procedureKathy M. Lue [facility] start: 06-08-2025 End: 78-44-9095sgulxkcjobJEMQIYY PROVIDERFacility:[facility]tart: 05-29-2025 End: 50-36-9491Lhfsdhmi Result EncounterBrook Huddleston MD Work Phone: NOSP External Department UnsolicitedStart: 05-29-2025 End: 01-41-2154Ylulferr Result EncounterBrook Huddleston MD Work Phone: noms External Department UnsolicitedStart: 05-29-2025 ambulatoryAmy ReeseFacility:[facility] Hospitaltart: 05-16-2025 End: 44-49-2998ehasyoizueEicfd M. LueFacility:[facility]ITALtart: 05-02-2025 End: 42-39-1300vduxtohkrdGservfp Keller MD Work Phone: [facility] Work Phone: Start: 05-02-2025 End: 19-46-0349Wktw Bakhous MD-[facility] Work Phone: Start: 95-25-8146Wxim Bakhous MD-[facility] Work Phone: Start: 04-25-2025 End: 15-58-7405pjjznlntpiBidkp M. LueFacility:EU [place]Start: 04-25-2025 End: 92-32-7564Cihqoiw encounter procedureOrquidea Issa [facility] Start: 04-13-2025 End: 51-36-2633Ppospbzlb encounterAlicia [facility] Radiology ProcedureComment on above:IR Outpatient Tube Appointment RequestPatient Update Start: 04-13-2025 End: 42-19-2100vgxpkhidgoPGGRFN GADANIFacility:[facility] HospitalStart: 04-05-2025 End: 52-67-3959Kdumtqaq Result EncounterBrook Huddleston MD Work Phone: NOYL External Department UnsolicitedStart: 04-05-2025 End: 53-41-8144Szxftwlg Result EncounterBrook Huddleston MD Work Phone: noms External Department UnsolicitedStart: 04-05-2025 End: 98-24-6128Vppzdaqqz [facility] Radiology ProcedureComment on above:Radiology Pre Procedure InstructionsStart: 04-05-2025 Registered RecurringBrook Marrero MD-[facility] Work Phone: Start: 04-05-2025 End: 72-13-3847Bznbzjj encounter procedureCarito Martell ID-C-Lab [facility] Work Phone: Start: 04-05-2025 End: 77-97-3816Bba Reese M MD-[facility] Work Phone: Start: 04-05-2025 End: 74-31-6897wxzthzrtuwCeqivrw Keller MD Work Phone: [facility] Work Phone: Start: 15-46-0269Zpbvfdxij for preprocedural laboratory examinationCarito Cabral [facility] GroupStart: 03-28-2025 End: 74-90-0628fmswbyaqvkOpkdmf TannaFacility:EU [place]Start: 03-28-2025 End: 50-04-6163Lhcqeif encounter procedurePratima Shadia [facility] Start: 03-27-2025 End: 71-37-2878hnqqutbknpCilvu M. LueFacility:EU [place]walkStart: 03-27-2025 End: 43-67-5119Iktvyce encounter procedureOrquidea Issa [facility] Start: 03-20-2025 End: 26-59-2042Qyxfmbpyh encounterWendsafia Racquel RNAngioComment on above:Follow Up Start: 03-16-2025 End: 14-91-7508Jpjffikva encounterHeather [facility] Radiology ProcedureComment on above:IR Outpatient Tube Appointment RequestOpened In Error Start: 03-16-2025 End: 10-86-2020dphpqxdjisYVDBJMU PROVIDERFacility:[facility] HospitalStart: 03-15-2025 ambulatoryLauren TannaFacility:EU [place]Start: 03-08-2025 End: 55-90-6428G-mail encounter from [facility] Radiology ProcedureStart: 03-08-2025 End: 39-40-8944Qorsied [facility]Brown [facility] Radiology ProcedureComment on above:You are scheduled for a Nephrostomy Tube Placement, on Sunday March 16, 2025Start: 03-08-2025 End: 23-94-6013Otorekukd encounterMary [facility] Radiology ProcedureComment on above:Radiology Pre Procedure InstructionsStart: 03-07-2025 End: 01-65-2641fypfyjqsugEzcsc M. LueFacility:FTMCStart: 03-04-2025 End: 25-62-3426pgyamghucpQOXPC CONAHANFacility:[facility] Columbustart: 03-03-2025 End: 20-34-9707vhcfoxozczUiwnq M. LueFacility:FTMCStart: 02-24-2025 End: 29-79-6127Obzuuprvf encounterBibaina Pena INTERVENTIONAL RADIOLOGY Comment on above:neph tube placementStart: 02-23-2025 End: 51-76-4547ajqkjiezofAprvx M. LueFacility:EU [place] HospitalkStart: 02-23-2025 End: 14-76-3938Enqalqb encounter procedureOrquidea Issa [facility] Start: 02-22-2025 End: 33-34-7653mckyopllmhPkeemm TannaFacility:FTMCStart: 02-22-2025 End: 01-43-0315Kalmtve encounter procedureLaquinten [place] [facility] start: 02-08-2025 End: 36-30-9298Kfqqbzzt Result EncounterBrook Huddleston MD Work Phone: noms External Department UnsolicitedStart: 02-08-2025 End: 95-25-1867Bbjkqesc Result EncounterBrook Huddleston MD Work Phone: noms External Department UnsolicitedStart: 02-08-2025 End: 96-04-9925pmoppuoiteDckvras Keller MD Work Phone: [facility] Work Phone: Start: 02-08-2025 End: 27-90-3538Lnutdqa encounter procedureBrook Marrero MD-[facility] Work Phone: Start: 02-08-2025 End: 74-00-7926Jlh Reese M MD-[facility] Work Phone: Start: 02-01-2025 End: 52-63-3348xkylzhpftmGsmyjn TannaFacility:EU [place]Start: 02-01-2025 End: 60-13-4772Quicget encounter procedurePratima [place] [facility] start: 01-30-2025 End: 71-73-3249Kttjqacq Result EncounterBrook Huddleston MD Work Phone: noms External Department UnsolicitedStart: 01-30-2025 End: 60-68-9847Loutbnbd Result EncounterBrook Huddleston MD Work Phone: noms External Department UnsolicitedStart: 01-11-2025 End: 98-15-5601Tvvxukdm Result EncounterBrook Huddleston MD Work Phone: noms External Department UnsolicitedStart: 01-11-2025 End: 27-34-5725Sgfrcoib Result EncounterBrook Huddleston MD Work Phone: noms External Department UnsolicitedStart: 01-11-2025 End: 91-03-6963ftihonrgrtEflika TannaFacility:FTMCStart: 01-11-2025 End: 17-50-4864Efm Drop offLauren Shadia [facility] Start: 01-11-2025 End: 47-96-2769ebdtqwsmwmZyjqax TannaFacility:EU [place]Start: 01-11-2025 End: 34-30-2726Khemego encounter procedureLaquinten [place] [facility] start: 01-03-2025 End: 86-65-0808Cqlq Bakhous MD-[facility] Work Phone: Start: 12-28-2024 End: 67-72-0981Fjeiiue encounter Magy Ochoa MD Work Phone: [facility] [place] Work Phone: Start: 12-28-2024 End: 21-26-0907Iwlu Bakhous MD-[facility] [place] Work Phone: Start: 12-28-2024 End: 67-79-4463ebfvpnfmmdFqfcnqp Keller MD Work Phone: [facility] Work Phone: Start: 12-21-2024 End: 67-89-1606Oxn Drop offLauren Shadia [facility] Start: 12-21-2024 End: 70-58-5243hieekjkuuqBcjjgj TannaFacility:FTMCStart: 12-14-2024 End: 39-74-0818Kxnunrgj Result EncounterBrook Huddleston MD Work Phone: noms External Department UnsolicitedStart: 12-14-2024 End: 60-66-1285Aejomdcv Result EncounterBrook Huddleston MD Work Phone: noms External Department UnsolicitedStart: 12-14-2024 End: 69-82-9119Yutojco encounter Magy Ochoa MD Work Phone: [facility] [place] Work Phone: Start: 12-14-2024 End: 60-74-6807Tngkj Lue M MD-[facility] [place] Work Phone: Start: 12-14-2024 End: 75-18-5752pmhbxjgqqgWoemgcj Keller MD Work Phone: [facility] Work Phone: Start: 29-27-4576Vzucrgseuk RecurringHelen Ochoa MD Work Phone: [facility] Work Phone: Start: 11-30-2024 End: 34-51-1516aebhqkhwagPvyyai TannaFacility:EU [place]Start: 11-17-2024 End: 83-68-2264uartpuhkjzGkhjg M. LueFacility:EU [place]walkStart: 11-11-2024 End: 91-65-7086Xbofhnzq Result EncounterBrook Huddleston MD Work Phone: noms External Department UnsolicitedStart: 11-11-2024 End: 36-79-4515Bhiqqghz Result EncounterBrook Huddleston MD Work Phone: noms External Department UnsolicitedStart: 11-11-2024 End: 28-69-3939Gkrxhmz encounter Magy Ochoa MD Work Phone: [facility] [place] Work Phone: Start: 11-11-2024 End: 74-86-6009LnoomnmHelen Ochoa MD-[facility] [place] Work Phone: Start: 11-11-2024 End: 24-24-5815uorblylwsuWoyzmub Keller MD Work Phone: [facility] Work Phone: Start: 01-27-2168Qtcmjtxiki Delano Ochoa MD Work Phone: [facility] Work Phone: Start: 11-09-2024 End: 19-09-0744ntaeqshyuwKhyxqbv Keller MD Work Phone: [facility] Work Phone: Start: 11-09-2024 End: 80-93-8264Yufhxpcc Opal Ochoa MD Work Phone: [facility]ospStart: 11-09-2024 End: 43-67-4184xxuiszwqeiYuwkq M. LueFacility:CD:[id number]: 11-07-2024 End: 83-43-0665naqxxmxnrmBvxqjo X OrzechFacility:FTMCStart: 11-07-2024 End: 60-26-0904Ihk Drop offAurora X Orzech [facility] Start: 11-07-2024 End: 80-57-0575zgbgzxskfeFjzsllf R WATERSFacility:EU [place]vueStart: 10-21-2024 End: 19-04-1278ifhhxwcfxpLsauyd TannaFacility:EU [place]Start: 10-17-2024 End: 45-31-6442qkqresgzcbEznrwqj Keller MD Work Phone: [facility] Work Phone: Start: 10-17-2024 End: 59-71-9810Zrjttmea ReferredHelen Ochoa MD Work Phone: [facility] [place] HospStart: 55-90-5041Ipenocitqh Delano Ochoa MD Work Phone: [facility] Work Phone: Start: 10-06-2024 End: 89-84-5369acpqpezoswPhbvopm Keller MD Work Phone: [facility] Work Phone: Start: 10-06-2024 End: 45-54-8565Goddpsw encounter procedureHelen Ochoa MD Work Phone: [facility] Work Phone: Start: 10-04-2024 End: 70-87-7592siyeatnywyYoztsut Keller MD Work Phone: [facility] Work Phone: Start: 10-04-2024 End: 09-51-5546Lrpyecg encounter Magy Ochoa MD Work Phone: [facility] Work Phone: Start: 09-27-2024 End: 02-54-3184Vxcydlpz Result EncounterBrook Huddleston MD Work Phone: noms External Department UnsolicitedStart: 09-27-2024 End: 99-82-2256Scomsavu Result EncounterBrook Huddleston MD Work Phone: noms External Department UnsolicitedStart: 09-27-2024 Registered Delano Ochoa MD Work Phone: [facility] Work Phone: Start: 09-27-2024 End: 21-19-8482Fskxdar encounter procedureHelen Ochoa MD Work Phone: [facility] [place] Work Phone: Start: 09-27-2024 End: 49-41-6781tvcuvtkbcwWwddifx Keller MD Work Phone: [facility] Work Phone: Start: 09-21-2024 End: 61-43-8289Hljgzibf Result EncounterBrook Huddleston MD Work Phone: noms External Department UnsolicitedStart: 09-21-2024 End: 95-91-9580Vmeyruvs Result EncounterBrook Huddleston MD Work Phone: noms External Department UnsolicitedStart: 09-08-2024 End: 16-81-8916Dvf Drop offAurora X Orzech [facility] Start: 09-08-2024 End: 86-25-9733qhwcjggnjwFwgcnj X OrzechFacility:EU [place]kyStart: 09-08-2024 End: 04-70-7513Abqinfy encounter procedureAurora X Orzech [facility] Start: 96-68-5878dinopzyzanSEToby HELTON Facility:EU KirkevueStart: 08-31-2024 End: 54-14-4235scseahyuihYsoxv M. LueFacility:EU [place]vueStart: 08-31-2024 End: 18-57-8019Baxpjyt encounter procedureOrquidea Issa [facility] start: 08-24-2024 End: 29-33-9383Klgiiysu Result EncounterBrook Huddleston MD Work Phone: noms External Department UnsolicitedStart: 08-24-2024 End: 53-13-6455Zebwrwul Result EncounterBrook Huddleston MD Work Phone: noms External Department UnsolicitedStart: 08-16-2024 End: 58-01-4742tkogowvqqhHlrhlj X OrzechFacility:FTMCStart: 08-16-2024 End: 59-80-8340Snd Drop offAurora X Orzech [facility] Start: 08-16-2024 End: 50-97-4616ktnrztadlnJwwgvo X OrzechFacility:EU [place]Start: 08-16-2024 End: 09-14-2476Wzculhq encounter procedureAurora X Orzech [facility] start: 08-09-2024 End: 61-94-0430wmxsqwqkeeLmymho X OrzechFacility:EU [place]vueStart: 08-09-2024 End: 70-62-9884Reaxefw encounter procedureAurora X Orzech [facility] start: 08-03-2024 End: 27-31-9945Ygoquja encounter Magy Ochoa MD Work Phone: [facility] Nephrology [place] Work Phone: Start: 08-01-2024 End: 14-11-2749Ejhsivzl Result EncounterBrook Huddleston MD Work Phone: noms External Department UnsolicitedStart: 08-01-2024 End: 43-30-7139Daebbqfj Result EncounterBrook Huddleston MD Work Phone: noms External Department UnsolicitedStart: 07-28-2024 Evaluation and management of inpatientAHMemorial Health Systemtart: 74-14-3738Aptcjjljrt and management of inpatientOBI EKWENNA [facility] CenterStart: 82-89-4708Ukwhmzmnzz and management of inpatientSPALLAVI [facility] Hospitaltart: 07-24-2024 Evaluation and management of inpatientYONATHAN PASTORniBucyrus Community Hospitaltart: 07-24-2024 End: 85-28-2561Tnnerhlmoz and management of inpatientSLESTER VALLEYanethBucyrus Community Hospitaltart: 07-20-2024 End: 72-39-0644tajhsflunyUhsux M. LueFacility:EU [facility] HospitalueStart: 07-20-2024 End: 83-29-8318Bvtibae encounter procedureOrquidea Issa [facility] start: 07-12-2024 End: 44-09-2664rfbzonygbwIxedav X OrzechFacility:EU Kirktart: 07-12-2024 End: 92-52-8544Yijtdmw encounter procedureAurora X Orzech [facility] start: 06-29-2024 End: 95-88-3119qrbkoernxaRdoyjpw Keller MD Work Phone: [facility] Work Phone: Start: 06-29-2024 End: 51-29-9451Sshzqvt Keller MD Work Phone: [facility] Nephrology [place] Work Phone: Start: 06-23-2024 End: 28-75-8447Uoilfqkf Result EncounterBrook Huddleston MD Work Phone: noms External Department UnsolicitedStart: 06-23-2024 End: 06-98-8716Lpmxkzib Result EncounterBrook Huddleston MD Work Phone: NOSO External Department UnsolicitedStart: 06-23-2024 End: 67-52-9696Lohogpl Keller MD Work Phone: [facility] Work Phone: Start: 06-23-2024 End: 88-76-8703kipheiwuynQuwhpal Keller MD Work Phone: [facility] Work Phone: Start: 06-21-2024 End: 19-96-8630ygfeyhjxunAnalpo X OrzechFacility:EU [place]vueStart: 06-21-2024 End: 89-07-9084Irvffzk encounter procedureAurora X Orzech [facility] start: 06-10-2024 End: 69-48-6254yuftfcvnfmAjfij M. LueFacility:EU [place]Start: 06-10-2024 End: 51-28-6677Iddbyct encounter procedureOrquidea Issa [facility] Start: 06-08-2024 End: 37-97-8648Asoaydl Keller MD Work Phone: [facility] [place] Work Phone: Start: 06-08-2024 End: 99-97-0627hdvthuoyreQE Richard Keller Work Phone: [facility] Work Phone: Start: 06-08-2024 End: 57-43-0828Frqklaa encounter procedureMD Helen Ochoa Work Phone: [facility] [place] Work Phone: Start: 37-56-5491Umj-patient / Non-visitMD Helen Ochoa Work Phone: [facility] Nephrology [place] Work Phone: Start: 08-43-9898Yuigjsu Keller MD Work Phone: [facility] Nephrology Marcel[place] Work Phone: Start: 06-02-2024 End: 94-92-6774Chljabayvy and management of inpatientMD Helen Ochoa Work Phone: [facility] Work Phone: Start: 06-02-2024 End: 08-09-5101Gqisetl Keller MD Work Phone: [facility] Work Phone: Start: 06-02-2024 End: 18-50-1124nbioycedxlKZ Helen Ochoa Work Phone: [facility] Work Phone: Start: 06-02-2024 End: 95-56-9684Wertxvg encounter procedureMD Helen Ochoa Work Phone: [facility] Work Phone: Start: 06-02-2024 End: 81-63-4910Sjpsmcg Keller MD Work Phone: [facility] Work Phone: Start: 06-02-2024 End: 78-72-5566Nrbglsru Result EncounterBrook Huddleston MD Work Phone: noms External Department UnsolicitedStart: 06-02-2024 End: [id number] Result EncounterBrook Huddleston MD Work Phone: [facility] External Department UnsolicitedStart: 06-02-2024 Registered RecurringMD Helen Ochoa Work Phone: [facility] Work Phone: Start: 06-01-2024 End: [id number] Helen Ochoa Work Phone: [facility] Work Phone: Start: 06-01-2024 End: [id number] ReferredMD Helen Ochoa Work Phone: [facility]: [id number] ReferredMD Helen Padillaler Work Phone: [facility]: 06-01[facility]2024 End: [id number] Keller MD Work Phone: [facility]: [facility] End: [id number] M. LueFacility:[place]Start: 06-01-2024 End: 26-98-1466Scw-Emily Issa [facility] Start: 05-20-2024 End: 67-66-7981Ulrmtsek Result EncounterBrook Huddleston MD Work Phone: noms External Department UnsolicitedStart: 05-20-2024 End: 39-05-9249Hcdjnwiu Result EncounterBrook Huddleston MD Work Phone: noms External Department UnsolicitedStart: 05-17-2024 End: 71-26-1338Rgrfkdjf Result EncounterrBook Huddleston MD Work Phone: noms External Department UnsolicitedStart: 05-17-2024 End: 16-34-4633Kziqlesc Result EncounterBrook Huddleston MD Work Phone: noms External Department UnsolicitedStart: 05-17-2024 End: 82-84-4381sibftuzycbRlfbpw X OrzechFacility:EU BellevueStart: 05-17-2024 End: 89-90-4121Vslwemv encounter procedureAurora X Orzech [facility] start: 05-06-2024 End: 07-92-2274Xqhhvosg Result EncounterBrook Huddleston MD Work Phone: noms External Department UnsolicitedStart: 05-06-2024 End: 04-28-9696Ysjlljyv Result EncounterBrook Huddleston MD Work Phone: noms External Department UnsolicitedStart: 04-26-2024 End: 80-44-8145yxbmiesmxxIpcsyg X OrzechFacility:EU BellevueStart: 04-26-2024 End: 60-80-2643Zivfhka encounter procedureAurora X Orzech [facility] start: 04-22-2024 End: 97-86-0440Vxndzvfo Result EncounterBrook Huddleston MD Work Phone: noms External Department UnsolicitedStart: 04-22-2024 End: 60-75-5260Gyausggj Result EncounterBrook Huddleston MD Work Phone: noms External Department UnsolicitedStart: 04-19-2024 End: 80-52-5996Ejt Drop offAurora X Orzech [facility] Start: 04-19-2024 End: 81-93-8175lghutqsheoArwcgr X OrzechFacility:FTMCStart: 04-19-2024 End: 62-65-7429Bytovhm encounter procedureAurora X Orzech [facility] start: 04-08-2024 End: 02-39-5648Zahxwibh Result EncounterBrook Huddleston MD Work Phone: noms External Department UnsolicitedStart: 04-08-2024 End: 33-34-9502Aotdxtal Result EncounterBrook Huddleston MD Work Phone: noms External Department UnsolicitedStart: 04-05-2024 End: 56-44-6336msfmyeojvdZpjjmg X OrzechFacility:EU [place]vueStart: 04-05-2024 End: 89-36-7414Apkfwsd encounter procedureAurora X Orzech [facility] start: 03-15-2024 End: 53-41-1578Ett Drop offAurora X Orzech [facility] Start: 03-15-2024 End: 50-30-8725xhwqnxnfrsNkmtbn X OrzechFacility:FTMCStart: 03-15-2024 End: 82-50-4086Gkzeurz encounter procedureAurora X Orzech [facility] start: 03-08-2024 End: 06-41-2978grraeptczbGO Helen Ochoa Work Phone: [facility] Work Phone: Start: 03-08-2024 End: 73-62-8809Nimbpkq encounter procedureMD Helen Ochoa Work Phone: [facility] Work Phone: Start: 09-45-7640Suqbxmyrqt RecurringMD Helen Ochoa Work Phone: [facility] Work Phone: Start: 66-37-1250Rxlqkhtfvl RecurringMD Helen Ochoa Work Phone: [facility] Work Phone: Start: 02-29-2024 End: 83-39-1575ubpdouhpajGT Helen Ochoa Work Phone: [facility] Work Phone: Start: 02-29-2024 End: 54-38-8139Cnotclk encounter procedureMD Helen Ochoa Work Phone: [facility] [place] Work Phone: Start: 02-25-2024 End: 03-74-1403fcbgegtailUX Helen Ochoa Work Phone: [facility] Work Phone: Start: 02-25-2024 End: 08-56-5074Wlzpcsz encounter procedureMD Helen Ochoa Work Phone: [facility]MRI [facility] [place] Work Phone: Start: 02-24-2024 End: 56-27-0511ujuelsknesQdljt M. LueFacility:EU [place]kyStart: 02-24-2024 End: 03-91-7685Wjmqthv encounter procedureOrquidea Issa [facility] [place] Start: 83-86-4720Hvnhtvizgh RecurringMD Helen Ochoa Work Phone: [facility] Work Phone: Start: 2024 End: 38-42-2873ecifnjcyjiZG Helen Ochoa Work Phone: [facility] Work Phone: Start: 2024 End: 91-55-6568Jrwnlex encounter procedureMD Helen Ochoa Work Phone: [facility] Work Phone: Start: 02-03-2024 End: 00-29-3187dkukrvpvyaSqxfq M. LueFacility:EU [place]vueStart: 02-03-2024 End: 36-76-5290Mpa-SiteOrquidea Issa [facility] [place] start: 01-28-2024 End: 77-56-2812ybhujekaeeMumjw M. LueFacility:EU [place]kyStart: 01-28-2024 End: 24-67-5596Spzstpx encounter procedureOrquidea Issa [facility] Start: 01-21-2024 End: 85-87-9460Vih-patient / Non-visitMD Helen Ochoa Work Phone: [facility] Work Phone: Start: 01-21-2024 End: 79-22-5634knzxcabxdjNzscw A KontakFacility:CD:[id number]: 01-19-2024 End: 92-78-2778Dbhfyzsxjd and management of inpatientMD Helen Ochoa Work Phone: [facility] [place] [facility] Work Phone: Start: 01-18-2024 End: 93-64-3315vmyriumviiDtkqeu X OrzechFacility:FTMCStart: 01-18-2024 End: 79-69-9683Vyh Drop offAurora X Orzech [facility] Start: 01-18-2024 End: 36-59-8424pumdxkoctkZqwld M. LueFacility:EU [place]vueStart: 01-18-2024 End: 73-14-7431Bzfkuzc encounter procedureOrquidea Issa [facility] start: 01-08-2024 End: 59-17-1215Mak Drop offSanti SCHWARTZ [facility] Start: 01-08-2024 End: 66-94-2371zkhhwsfsxlXnsxylr R WATERSFacility:FTMCStart: 01-08-2024 End: 13-52-8517Ckgipfh encounter procedurePatricigor SCHWARTZ [facility] start: 23-12-0379Viubuawesg RecurringMD Helen Ochoa Work Phone: [facility] Work Phone: Start: 12-18-2023 End: 70-39-6334hxqbrvzezrVznvomv R WATERSFacility:EU [place]vueStart: 12-18-2023 End: 34-57-7012Kzgkjdj encounter procedureSanti SCHWARTZ [facility] start: 12-09-2023 End: 96-77-7393Spk Drop offNancie Olivier [facility] Start: 12-09-2023 End: 07-64-0775owwcedrfzvXqxezw J GalyuliFacility:FTMCStart: 12-09-2023 End: 21-55-7078Nuvgyjm encounter procedureJENNIFER Heena DANIE [facility] start: 11-25-2023 End: 77-41-2327ozjfqfhrmpIcmmulw R WATERSFacility:EU [place]kyStart: 11-25-2023 End: 95-47-4299Nkfvctz encounter procedurePatricigor Briceño EFREN [facility] [place] Start: 11-04-2023 End: 71-75-7369hvjzcigviePH Helen Ochoa Work Phone: [facility] Work Phone: Start: 11-04-2023 End: 28-43-9140Tcmmqpq encounter procedurePatricigor Briceño EFREN [facility] Start: 68-45-2150Jgvlmsdxpn RecurringMD Helen Ochoa Work Phone: [facility] [place] [facility] Work Phone: Start: 10-26-2023 End: 08-91-6995Jeewnrm encounter procedureMD Helen Ochoa Work Phone: [facility] Work Phone: Start: 10-26-2023 End: 31-98-9423Xrhcqql encounter procedureMD Helen Ochoa Work Phone: [facility] [place] Work Phone: Start: 10-12-2023 End: 76-07-7785suqiyunsrcQxxugne R WATERSFacility:EU [place]vueStart: 10-01-2023 End: 66-66-0830zodmapdrmnPX Richard Keller Work Phone: [facility] Work Phone: Start: 10-01-2023 End: 67-96-6836Vellkei encounter procedureMD Helen Ochoa Work Phone: [facility] Work Phone: Start: 54-00-8900Kmjjrjvskg RecurringMD Helen Ochoa Work Phone: [facility] Work Phone: Start: 96-63-1162Zumuxmhj Result EncounterBrook Huddleston MD Work Phone: noms External Department UnsolicitedStart: 09-28-2023 External Result EncounterBrook Huddleston MD Work Phone: noms External Department UnsolicitedStart: 09-23-2023 End: 71-91-5723roqtbkiorxCejti M. LueFacility:CD:[id number]: 09-23-2023 End: 99-59-1141Zkk-SiteKathy M. Lue [facility] [place] Start: 08-31-2023 End: 06-79-5915ordbrqqmjqFbrdgys P COOKFacility:EU [place]vueStart: 08-31-2023 End: 57-66-3615Oyqrlnk encounter procedureJose BURROWS [facility] start: 08-11-2023 End: 81-60-3035Bmr Drop offKathy M. Lue [facility] Start: 08-11-2023 End: 12-62-2780ayrapdwxzfZiwef M. LueFacility:FTMCStart: 08-11-2023 End: 37-33-2433Vkehuhm encounter procedureKathy M. Lue [facility] Start: 07-22-2023 End: 65-28-6792iekgbqwoogOrlin M. LueFacility:EU [place]vueStart: 07-22-2023 End: 78-94-5396Fidzvao encounter procedureKathy M. Lue [facility] [place] start: 07-14-2023 End: 59-69-2263mrpewmgbgnLA Richard Keller Work Phone: [facility] Work Phone: Start: 07-14-2023 End: 07-88-1329Homftqv encounter procedureMD Helen Ochoa Work Phone: [facility]XRay [facility] [place] Work Phone: Start: 27-54-2770Roxdimmntn RecurringMD Helen Ochoa Work Phone: [facility] Work Phone: Start: 87-43-3406oggdsvxdlpUactr M. LueFacility:EU [place]kyStart: 07-02-2023 End: 51-03-8392Cbb Drop offKathy M. Lue [facility] Start: 07-02-2023 End: 47-60-9499ndtavukbttFmmzy M. LueFacility:FTMCStart: 06-23-2023 End: 99-92-1936Yuitpxm encounter procedureMD Helen Ochoa Work Phone: [facility] [place] Work Phone: Start: 06-10-2023 End: 68-45-0361dekymfdjgzNekxr M. LueFacility:CD:[id number]: 05-28-2023 End: 44-95-7475Cmb Drop offKathy M. Lue [facility] Start: 05-28-2023 End: 20-53-2833wcwubvisalWgsxg M. LueFacility:FTMCStart: 05-28-2023 End: 61-67-3411Eupdnpo encounter procedureKathy M. Lue [facility] [place] Start: 05-19-2023 End: 72-23-2751blfkxqktwhYI Helen Ochoa Work Phone: [facility] Work Phone: Start: 05-19-2023 End: 15-05-4888Nciqglx encounter procedureMD Helen Ochoa Work Phone: [facility] Work Phone: Start: 37-66-1575Dmmlkfwzbp Recurring Helen Ochoa Work Phone: [facility] Work Phone: Start: 05-15-2023 End: 73-84-9028rlwpxuqfypLryey M. LueFacility:EU [place]kyStart: 05-15-2023 End: 37-10-5105Dunjvuu encounter procedureOrquidea Issa [facility] [place] Start: 19-42-3024wsutqznrfrRwskb M. LueFacility:EU BellevueStart: 98-65-7523CugmtfTytsn Dewitt-Foy MD Work Phone: UrologyComment on above:Refill RequestStart: 39-33-8531Bqmcjljqll RecurringMD Helen Ochoa Work Phone: [facility] Work Phone: Start: 02-19-2023 End: 92-89-2859owuqamgqhuLC Richard Keller Work Phone: [facility] Work Phone: Start: 02-19-2023 End: 95-10-4379Ackdkkl encounter procedureMD Helen Ochoa Work Phone: [facility] Work Phone: Start: 02-13-2023 End: 25-66-3923iihdlhgfukHqxuq M. LueFacility:EU [place]kyStart: 02-13-2023 End: 88-78-5197Kmwonny encounter procedureOrquidea Issa [facility] Start: 02-11-2023 End: 70-71-8290Uepcbwceg to [place] [address] Work Phone: [facility]: 02-11-2023 End: 38-63-4624gbggrdbopnEbqq [place] 2 Work Phone: pre AnesthesiaComment on above:Pre-op evaluation (Primary Dx); Hypertension, unspecified type; Hypercholesterolemia; Benign prostatic hyperplasia with urinary obstruction; Stage 3 chronic kidney disease, unspecified whether stage 3a or 3b CKD (HCC); Type 2 diabetes mellitus without complication, with long-term current use of insulin (HCC); Bone marrow transplant status (HCC); Prostate cancer (HCC); Iron deficiency anemia, unspecified iron deficiency anemia type; Rheumatoid arthritis, involving unspecified site, unspecified whether rheumatoid factor present (HCC)Start: 02-11-2023 End: 94-10-3782Igctzyodyzyoo examination [place] [address] Work Phone: pre AnesthesiaStart: 01-19-2023 End: 73-07-8545upawhbrcixWgxrc Olivares MD Work Phone: UrologyComment on above:Prostate cancer (HCC) (Primary Dx); Acquired ureteral stricture; Neurogenic bladder; Benign prostatic hyperplasia with urinary obstructionStart: 01-19-2023 End: 13-26-5925Tzxxcmrigpvh consultation with Andrew Aparicio MD Work Phone: ccf [facility]Start: 01-16-2023 End: 13-01-5393Alpjfly encounter procedureOrquidea Issa [facility] Start: 01-14-2023 End: 23-63-2482mcbxxkpwggHeit Bakhous Other [facility] [employer] Other Start: 02-12-4411Bsegzn outpatient visit 25 minutes Aziz MagdafahadFPG NephrologyStart: 19-58-8037Jahniogri encounterAzrajinder CrouchG NephrologyStart: 01-05-2023 End: 03-86-2340Xoqavox encounter procedureMD Helen Ochoa Work Phone: [facility] [place] Work Phone: Start: 12-19-2022 End: 33-40-4309Ixnpwxx encounter procedureAshliepal MarreroChay Mercadoheena [facility] [place] Start: 12-17-2022 End: 14-61-9613thxrjhvocmSO Helen Ochoa Work Phone: [facility] Work Phone: Start: 12-17-2022 End: 51-76-2904Qrdallm encounter procedureMD Helen Padillaler Work Phone: [facility]-Ultrasound [facility] [place] Work Phone: Start: 53-64-4398Benlppfvl for other preprocedural examinationKATPAL Marrero [facility] HospitalStart: 74-84-7070Oxbucefao for preprocedural laboratory examinationKATPAL Marrero [facility]art: 49-99-2342Vugxootsrs RecurringMD Helen Ochoa Work Phone: [facility] Work Phone: Start: 12-10-2022 End: 91-95-3837cwtjxhkvasEVZUD M LUEFacility:E8Dmadn: 12-08-2022 End: 11-41-0396oxgzqexosbIDMECK SNYDERFacility:W9Qesxm: 12-08-2022 End: 10-88-2964Mnsvlhvyl for preprocedural laboratory examinationATRIUM HEALTH S[facility]THPAR[facility] Facility:Y5Zpmyi: 12-05-2022 End: 01-22-8113Qcuvnqn encounter procedureOrquidea Issa [facility] [place] Start: 12-01-2022 End: 01-03-8761vcebcsovesVA Helen Ochoa Work Phone: [facility] Work Phone: Start: 12-01-2022 End: 77-27-5470Wiurylf encounter procedureMD Helen Ochoa Work Phone: [facility] [place] Work Phone: Start: 21-64-3545Wawtmbsjfx RecurringMD Helen Ochoa Work Phone: [facility] Work Phone: Start: 11-27-2022 End: 39-04-9449hxwdljzckdNK Helen Ochoa Work Phone: [facility] Work Phone: Start: 11-27-2022 End: 90-40-2287Capmwsn encounter procedureMD Helen Ochoa Work Phone: [facility]XRay [facility] [place] Work Phone: Start: 11-17-2022 End: 52-45-5624hyijecheesMR Helen cOhoa Work Phone: [facility] Work Phone: Start: 11-17-2022 End: 21-78-4408Qayionv encounter procedureMD Helen Ochoa Work Phone: [facility] [place] Work Phone: Start: 05-94-5905Gmhaecyghw RecurringMD Helen Ochoa Work Phone: [facility] Work Phone: Start: 33-84-8178Ecedfwjpgb RecurringMD Helen Ochoa Work Phone: [facility] Work Phone: Start: 11-11-2022 End: 97-81-2293bcasansihzNK Helen Ochoa Work Phone: [facility] Work Phone: Start: 11-11-2022 End: 06-61-6316Siurjly encounter procedureMD Helen Ochoa Work Phone: [facility] [place] Work Phone: Start: 11-10-2022 End: 88-94-9750Ajdiatlp ReferredMD Helen Ochoa Work Phone: [facility] [place] Work Phone: Start: 11-03-2022 End: 36-60-6015Iuednnb encounter procedureOrquidea Issa [facility] Start: 10-30-2022 End: 60-77-0444Rbudfdi encounter procedureMD Helen Ochoa Work Phone: [facility] [place] Work Phone: Start: 37-32-9674Yorfppeuyk RecurringMD Helen Ochoa Work Phone: [facility] Work Phone: Start: 10-30-2022 End: 38-61-3281fnjcdrajlrXJ Helen Ochoa Work Phone: [facility] Work Phone: Start: 10-30-2022 End: 57-63-7246Nqriyuo encounter procedureMD Helen Ochoa Work Phone: [facility] [place] Work Phone: Start: 10-16-2022 End: 95-80-9916Dxwvses encounter procedureAshliepal MarreroChay Diego [facility] Start: 22-30-7270Majjloejdh RecurringMD Helen Ochoa Work Phone: [facility] Work Phone: Start: 10-14-2022 End: 10-55-2830sgiyeyuoysTY Helen Ochoa Work Phone: [facility] Work Phone: Start: 10-14-2022 End: 36-78-5761Jzapwzf encounter procedureMD Helen Ochoa Work Phone: [facility] [place] Work Phone: Start: 10-09-2022 End: 00-98-3255Gngzsiu encounter procedureLanmanjit Rodriguez ClemonsExec[facility] Start: 10-02-2022 End: 76-86-8160fjeuxucinaVL Helen Ochoa Work Phone: [facility] Work Phone: Start: 10-02-2022 End: 71-56-4523Ezubkdr encounter procedureMD Helen Ochoa Work Phone: [facility]CT Scan [facility] [place] Work Phone: Start: 98-74-2410Ubgerszqko RecurringMD Helen Ochoa Work Phone: [facility] Work Phone: Start: 09-23-2022 End: 90-19-4024idcuudlyxjBS Helen Ochoa Work Phone: [facility] Work Phone: Start: 09-23-2022 End: 34-38-7825Ebcqezz encounter procedureMD Helen Ochoa Work Phone: [facility] [place] Work Phone: Start: 09-03-2022 End: 86-91-4869hsdrqyzjytJM Richard Keller Work Phone: [facility] Work Phone: Start: 09-03-2022 End: 36-06-0695Kwcuclpozo RecurringMD Helen Ochoa Work Phone: [facility] Work Phone: Start: 09-01-2022 End: 01-72-5131Hivhyyd encounter procedurePanikolai SCHWARTZ [facility] start: 08-27-2022 End: 55-04-5750pnbmzuvkxqCD HELEN OCHOAFacility:Q9Oihlz: 08-25-2022 End: 24-42-9667Vbs Drop offOrquidea Issa [facility] Start: 08-25-2022 End: 75-96-9843Ihacsmu encounter procedurePanikolai SCHWARTZ [facility] start: 08-23-2022 End: 83-81-2009blatbsrjmwUY HELEN OCHOAFacility:Q7Zfxfo: 08-19-2022 End: 32-03-6892Evq Drop offJENNIFER E DANIE [facility] Start: 08-19-2022 End: 23-88-2818Kvtgipx encounter procedureJENNIFER E DANIE [facility] start: 08-06-2022 End: 99-02-9949Yvzirri encounter procedureKatpal Marrero. Ralphe [facility] start: 07-30-2022 End: 94-14-1189walhuyrqffLWGCW M LUEFacility:V6Ndhhy: 07-28-2022 End: 74-31-4330jzwbamqbhtDA Helen Ochoa Work Phone: [facility] Work Phone: Start: 07-28-2022 End: 89-00-4658Awimarfurk RecurringMD Helen Ochoa Work Phone: [facility] CenterStart: 07-26-2022 End: 21-57-8499zqhovnlonvWRFJM M LUEFacility:J3Brjcf: 74-93-7176Gcpiekvqq for other preprocedural examinationORQUIDEA [facility]art: 07-21-2022 Encounter for preprocedural respiratory examinationORQUIDEA [facility]art: 07-17-2022 End: 81-26-8660tgakdpkyycDHIWU M LUEFacility:B6Gbwrw: 07-17-2022 End: 60-77-0872Qemvrhtyl for other preprocedural examinationKATHY Janes LUE Facility:Z0Qfrza: 07-17-2022 End: 93-83-5694hpjkrisazpTTSOR M LUEFacility:G0Fgmxj: 07-07-2022 End: 41-96-3196Ounsqwq encounter procedureKathy M. Lue [facility] Start: 07-04-2022 End: 02-79-5238Tdhtair encounter procedureKathy M. Lue [facility] Start: 92-69-7536tguvilwnrdNdDr. Helen Ochoa [facility]: 07-01-2022 End: 65-45-9956Whgzkkj encounter procedureOrquidea Issa [facility] [place] Start: 06-27-2022 End: 96-90-7643bjicnlyjzyUM Richard Keller Work Phone: [facility] Work Phone: Start: 06-27-2022 End: 71-31-6795Ctyqewggqr RecurringMD Helen Ochoa Work Phone: [facility] CenterStart: 06-04-2022 End: 02-55-3396Klm Drop offOrquidea Issa [facility] Start: 06-04-2022 End: 47-37-3713Hppdrnw encounter procedureOrquidea Issa [facility] start: 05-23-2022 End: 85-96-4803rqupknwqtlUYWYHQSWT NO [facility] Work Phone: Start: 05-23-2022 End: 92-99-6294Xyhaeidkld RecurringPHYSICIAN [facility] CenterStart: 05-14-2022 End: 85-08-9165Bkfoiqb encounter procedureOrquidea Issa [facility] start: 05-07-2022 End: 53-15-7913sqbgophdiuGVSusannah OCHOAFacility:I3Zbyvo: 05-06-2022 End: 02-06-2756Pfbnknz encounter procedureOrquidea Issa [facility] [place] Start: 05-05-2022 End: 81-62-4573Lihwwzx encounter procedureAshliepal Issa [facility] Start: 04-30-2022 End: 13-06-3220Pvrmpurzd to same day surgery centerMD Helen Ochoa Work Phone: [facility] Scan [facility] [place] Start: 04-23-2022 End: 99-53-2133Lgpquvs encounter procedureMD Helen Ochoa Work Phone: [facility] [place]: 04-18-2022 End: 33-87-7316Kzp Drop offOrquidea Issa [facility] Start: 04-18-2022 End: 73-07-9045Kjmvyug encounter procedureAshliepal Issa [facility] [place] Start: 53-01-2817Jdfljfiajg RecurringMD Helen Ochoa Work Phone: [facility] CenterStart: 04-03-2022 End: 54-67-5031Mpwgahi encounter procedurePatsy Seals Jr. [facility] Start: 03-24-2022 End: 29-50-2303Afyjoara ReferredMD Helen Ochoa Work Phone: [facility]Lab Main CampusStart: 71-00-0497rnrgbstzujSe. Helen OchoaFacility:9122Start: 01-28-2022 End: 55-44-6352Ehixzzy encounter procedurePatsy Seals Jr. [facility] start: 99-05-3805Bfhsjjmmi for preprocedural cardiovascular examinationDR PATSY CartwrightThe Madison Healthtart: 62-15-2460Ibijcvurx for preprocedural laboratory examinationDR PATSY CartwrightThe Madison Healthtart: 01-14-2022 End: 09-27-4137yuxlseefbeKC PATSY CartwrightFacility:B4Nmwlx: 01-10-2022 ambulatoryDR HELEN OCHOAFacility:Q8Hxgka: 01-09-2022 End: 88-82-5218bmbammbkluYX PATSY CartwrightFacility:A3Hfhws: 01-09-2022 End: 64-18-8993Damiybmsl for preprocedural cardiovascular examinationDR PATSY CartwrightFacility:D3Ahgcf: 60-99-1220kptttbjitnJu. Helen Ochoa Facility:[id number]: 48-52-9996eiputzdwhgXu. Helen OchoaFacility:9591 Start: 79-29-6771xgrngcciruKn. Helen OchoaFacility:UHCStart: 12-10-2021 End: 94-39-6470Wzcugga encounter procedurePatsy Seals Jr. [facility] start: 40-02-2720lenfkywingIZI PRATIMA VANESSA Facility:UHtart: 10-29-2021 End: 84-96-9256lxcfnbdkzzQipv Bakhous Other [employer] Other Start: 23-69-4025Igtwdx outpatient visit 25 minutes Price CrainFPG Nephrology Procedures DateProcedureProcedure DetailPerforming ClinicianStart: 98-51-3367Kxloddje blood count with white cell differential, Chikis Huddleston MD Work Phone: Start: 72-33-0875XuwwjguiosRtqam Lue Start: 93-15-0893Yjjcjlpy blood count with white cell differential, automatedBrook Huddleston MD Work Phone: Start: 05-74-1132Omha nephrostomy cath prq new access rs&iKathy Diego Start: 57-65-7871JneikcijgdJdyhw Luheena Start: 11-23-6112Fzhtfsp bacterial quanttative colony count urineBrook Huddleston MD Work Phone: Start: 28-83-8958Nbbkx dip stick/tablet rgnt auto w/o microscopyBrook Huddleston MD Work Phone: start: 87-43-2606Jxqtn cultureHelen Ochoa MD Work Phone: Start: 11-83-6163Jhbvsamp blood count with white cell differential, automatedBrook Huddleston MD Work Phone: Start: 66-17-1866Csrtxeazuhwrh metabolic panelBrook Huddleston MD Work Phone: start: 76-75-1317Vpoxx immunofixationHelen Ochoa MD Work Phone: Comment on above:Immunofixation shows IgG monoclonal protein with kappalight chain specificity. PLEASE NOTE: Samplesfrom patients receiving DARZALEX(R)(daratumumab) or SARCLISA(R)([facility]atuximab-[facility]c) treatmentcan appear as an IgG kappa and mask a complete response(CR). If this patient is receiving these therapies, thisIFE assay interference can be removed by ordering testnumber [id number]- Immunofixation, Daratumumab-Specific,Serum or [id number]- Immunofixation, Isatuximab-Specific,Serum and submitting a new sample for testing or bycalling the lab to add this test to the current sample.Lambda appears asymmetrical.Start: 91-65-6877Oicidtke blood count with white cell differential, automatedBrook Huddleston MD Work Phone: Start: 84-39-2554Xqzmianq blood count with white cell differential, automatedBrook Huddleston MD Work Phone: Start: 75-50-1473Ynkggyrv blood count with white cell differential, automatedBrook Huddleston MD Work Phone: Start: 29-77-5985Xsrty Citlalli Ochoa MD Work Phone: Start: 70-95-2084Mvbrl Citlalli Ochoa MD Work Phone: Start: 06-48-3009EYIWYMAPLCYIRA, (JOSE C), URINEBrook Huddleston MD Work Phone: Start: 65-61-4230Vikhzmh dehydrogenase ldhBrook Huddleston MD Work Phone: Start: 04-12-8738CEUEEHI ELECTRO, RANDOM URINEBrook Huddleston MD Work Phone: Start: 56-25-7068P-ray skeletal surveyHelen Ochoa MD Work Phone: Start: 64-36-9833Prwmhhef blood count with white cell differential, automatedBrook Huddleston MD Work Phone: Start: 32-69-1281Jqrqmmar blood count with white cell differential, automatedBrook Huddleston MD Work Phone: Start: 86-14-5492Wivusnin blood count with white cell differential, automatedBrook Huddleston MD Work Phone: Start: 61-61-0270Drmxep of cystostomy tubeKatpal Mercadoe Comment on above:[facility]: 15-48-6194Zbufvnjv blood count with white cell differential, automatedBrook Huddleston MD Work Phone: Start: 76-49-9295Dyppinwehwxhf metabolic panelBrook Huddleston MD Work Phone: Start: 26-16-7838NufcmhvlcuNM Helen Ochoa Work Phone: Start: 74-64-6383Vudpekbysxl insertion of ureteric stentKathy Lue Start: 83-15-5457QI of abdomen and pelvis without contrastMD Helen Ochoa Work Phone: Start: 65-55-1392Fdbgjhdk identified in Urine by CultureMD Helen Ochoa Work Phone: Start: 97-47-9096Kvwpb cultureHelen Ochoa MD Work Phone: Start: 10-19-1358Wtcjfuaw blood count with white cell differential, automatedBrook Huddleston MD Work Phone: Start: 89-12-6919Ucvjjogtmohnr metabolic panelBrook Huddleston MD Work Phone: Start: 88-78-4897Ucphehfeodiii needle biopsy of prostateKathy Lue Start: 05-20-2024 End: 38-91-4084Kksownr dehydrogenase ldhBrook Huddleston MD Work Phone: Start: 59-70-2343Okbveucz blood count with white cell differential, automatedBrook Huddleston MD Work Phone: Start: 94-01-7706Waizpmnr blood count with white cell differential, automatedBrook Huddleston MD Work Phone: Start: 31-44-5359Rwsyowqlivxlw metabolic panelBrook Huddleston MD Work Phone: Start: 34-15-2239Oblmnuop blood count with white cell differential, automatedBrook Huddleston MD Work Phone: Start: 59-54-9772Cnwglngblfjll metabolic panelBrook Huddleston MD Work Phone: Start: 75-39-1893Bhcllais blood count with white cell differential, automatedBrook Huddleston MD Work Phone: Start: 15-48-5088Wyliufifgsjmq metabolic panelBrook Huddleston MD Work Phone: Start: 48-74-1004Glpvziyg blood count with white cell differential, automatedBrook Huddleston MD Work Phone: Start: 63-57-4194Dvywswevwixzh metabolic panelBrook Huddleston MD Work Phone: Start: 70-37-1359EN prostate wo con Helen Ochoa Work Phone: Start: 75-75-8378Quphwrmnqnt insertion of ureteric stentKathy Lue Start: 10-37-2933Xtqtihexrojbloy of bilateral kidneys Helen Ochoa Work Phone: Start: 91-85-2905Jzxic chest X-ray Helen Ochoa Work Phone: Start: 02-07-2196Nafbl culture for bacteria, including anaerobic screen Helen Ochoa Work Phone: Start: 89-59-0290Bewdkitwh for occult blood in fecesMD Cervantes Don Work Phone: Start: 12-26-2096Qiwaj Occult Blood (DEEPA)MD Helen Padillaler Work Phone: Start: 50-51-8510Jsrgg culture Helen Ochoa Work Phone: Start: 06-33-5562Byfkvayr blood count with white cell differential, automatedBrook Huddleston MD Work Phone: Start: 03-07-0394Vlslxwqtyejxc metabolic panelBrook Huddleston MD Work Phone: Start: 11-73-1656Asjlvhqpmo examination, osseous survey, complete Helen Ochoa Work Phone: Start: 15-98-1007Fgmdtnobfs radiography of abdomen Helen Ochoa Work Phone: Start: 51-44-2941Fgcjifubuyl replacement of ureteric stentKathy Lue Start: 55-32-2998Rxhroppqrxkupq shockwave lithotripsy of calculus of kidneyKathy Lue Start: 46-16-3288Nridzxhbke radiography of abdomenMD Helen Ochoa Work Phone: start: 41-28-1042Pwifiolzdb and insertion of suprapubic catheterKathy Lue start: 85-78-9200Ippfm X-ray of left hipMD Helen Ochoa Work Phone: start: 89-47-9953E-ray of lumbar spine, four or more viewsMD Helen Ochoa Work Phone: Start: 87-82-2546Avwhn cultureMD Helen Ochoa Work Phone: start: 97-49-1573Qxnotnfatyxvtjn of bilateral kidneys MD Helen Ochoa Work Phone: start: 54-48-1644Prmyiijiniw insertion of ureteric stentKathy Lue start: 58-76-4779Udgmwzbljeljchn of bilateral kidneysMD Helen Ochoa Work Phone: start: 02-70-0208W-ray of cervical spineMD Helen Ochoa Work Phone: start: 52-76-2932Fasktsvxhcykjoi of bilateral kidneys MD Helen Ochoa Work Phone: Start: 02-07-3470JL prostate wo conMD Helen Ochoa Work Phone: start: 22-15-0937Spvej cultureMD Helen Ochoa Work Phone: Start: 49-51-2473Epliugigzpzccyg of bilateral kidneys MD Helen Ochoa Work Phone: start: 23-21-5763Ssdjiejjykkoybx of bilateral kidneys MD Helen Ochoa Work Phone: start: 25-95-2430MV of abdomen and pelvis without contrastMD Hleen Ochoa Work Phone: start: 07-63-2456Qtztd cultureMD Helen Ochoa Work Phone: start: 97-15-7093Htnpoldhhz radiography of abdomenMD Helen Ochoa Work Phone: Start: 35-32-8795Skjbwoktixgrbvr of bilateral kidneys MD Helen Ochoa Work Phone: Start: 99-78-5954Pilpayhlbrmjo prostatectomyPatrick EFREN Start: 39-94-7714Iumayclcajtny insertion of prostatic urethral lift implantOrquidea Issa Start: 51-82-2789Pcbmjy biopsyPHYSICIAN NO FAMILYStart: 51-02-2458Auucnxciih examination, osseous survey, completeMD Helen Ochoa Work Phone: Start: 88-39-5239Fwexky-up visitStart: 03-12-2020 Duplex scan veins of upper limbMD Helen Ochoa Work Phone: Start: 06-92-0789Keatjcrpkhd removal of ureteric stent Patsy Seals Jr. start: 39-67-8810Iwaljkslahx anastomosis of ureter to bladder with insertion of stent into ureterPatsy Seals Jr. start: 56-77-3772Apeariodvskala shockwave lithotripsy of calculus of kidneyPatsy Seals Jr. dental surgical procedureKatpal Issa H/O: renal dialysisHistory of hemodialysisMD Helen Ochoa Work Phone: H/O: surgeryS/P UPPP (uvulopalatopharyngoplasty)MD Helen Ochoa Work Phone: heel spurPatsy Seals Jr. stem cell transplantOrquidea Issa Urine cultureMD Helen Ochoa Work Phone: Urine cultureMD Helen Ochoa Work Phone: Plan of Treatment DateCare ActivityDetailAuthorStart: 19-33-1471Fbgya microalbumin profile [facility]ertart: 35-44-2422Rsbuukhr blood countHemoglobin/Hematocrit [facility]ertart: 16-46-4733Uqepyrqe blood countHemoglobin/Hematocrit [facility]ertart: 70-59-0821Fwxwnuznqh measurementSerum CreatinineBarney Children's Medical Centertart: 84-94-4269Wbegwrhjpr measurementSerum CreatinineMem[facility] Start: 74-70-0937Wvlhgvosw vaccinationInfluenza Vaccine (#1)[facility] Start: 04-13-2025 End: 16-96-2757Jbpgtlvht to same day surgery [facility] Radiology ProcedureComment on above:PERC EXCHANGE NEPHROSTOMY CATH, INCLUDING DIAGNOSTIC NEPHROSTOGRAM/URETEROGRAM WHEN PERFORMED,IMAGING GUIDANCE AND ALL ASSOCIATED RAD S&IStart: 45-76-5418Mruuuearfw [facility] ProcedureComment on above:Ureteral 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.5]Start: 04-13-2025 End: 27-13-6961Cavsarhe nephrostomy catheter prq w/img gid rs&iAV IRStart: 97-74-1300PaklolsuyToledo Hospitaltart: 88-44-6333RefzlsmirToledo Hospitaltart: 03-16-2025 End: 01-30-6307Kaegimppi to same day surgery [id number]/16/2025 8:30 AM EDT - 03/16/2025 10:30 AM EDT Surgery [facility]iology Procedure [address] [place] [address] Dax Forbes MD [address] [place] [address] PERC PLACEMENT NEPHROSTOMY CATH,INCLUDING DIAGNOSTIC NEPHROSTOGRAM/URETEROGRAM WHEN PERFORMED,IMAGING GUIDANCE AND ALL ASSOCIATED RAD S&[facility] Radiology ProcedureComment on above:PERC PLACEMENT NEPHROSTOMY CATH,INCLUDING DIAGNOSTIC NEPHROSTOGRAM/URETEROGRAM WHEN PERFORMED,IMAGING GUIDANCE AND ALL ASSOCIATED RAD S&IStart: 03-16-2025 End: 69-22-1081Kkyi nephrostomy cath prq new access rs&iAV IRStart: 03-16-2025 Subsequent hospital visit by xwinoynzo14/31/2025 8:30 AM EDT Hospital Encounter [facility]iology Procedure [address] [place] [address] Dax Forbes MD [address] [place] [address] Ureteral 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.5][facility] Procedure Comment on above:Ureteral 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.5]Start: 49-18-9681IasjulvpzToledo Hospitaltart: 77-16-9633KuixlsnsnToledo Hospitaltart: 02-08-2025 End: 63-52-1703TnnollancToledo Hospitaltart: 66-92-6399KwmrmbjkfToledo Hospitaltart: 12-54-7004HmjcfjxfpToledo Hospitaltart: 77-00-5507MepltnrzmToledo Hospitaltart: 30-81-9612NiizgkyfoToledo Hospitaltart: 77-40-7851XtcbferkcToledo Hospitaltart: 98-55-4871PfjpevqusToledo Hospitaltart: 07-83-3195FlosrhfjhToledo Hospitaltart: 11-09-2024 End: 49-91-3609Zqhuc cultureToledo Hospitaltart: 11-09-2024 Bacteria identified in Urine by CultureUrine [facility] Columbustart: 10-18-2024 End: 82-37-9668QigbynbevToledo Hospitaltart: 55-40-2416Wbkjntez identified in Urine by CultureTr[facility] Start: 35-98-3053Ftbzh [facility]ertart: 09-21-2024 [facility]: 76-29-4623FzsraxoghToledo Hospitaltart: 48-83-5735QhcgviufsToledo Hospitaltart: 08-24-2024 End: 08-76-2563IziwleclqToledo Hospitaltart: 44-55-4294Aimdjvd Directive DiscussionAdvance Directive DiscussionBarney Children's Medical Centertart: 32-63-1219LdmgbhsnhToledo Hospitaltart: 31-24-8860VhysvkltdToledo Hospitaltart: 69-57-7349FxnflbzsmToledo Hospitaltart: 05-94-1511CgvidywxmToledo Hospitaltart: 29-53-3199CtyogyerjToledo Hospitaltart: 62-37-4516WshvljhvbxPH Cysto/Retro/Stent/Stone/Holmium Laser (Left)[facility]: 91-29-4083DslsvmtvdaSL Cysto/Retro/Stent/Stone/Holmium Laser (Left)[facility] Start: 12-79-4253yWDR in Platelet poor plasma by Coagulation assayToledo Hospitaltart: 80-51-6144Qrdoqdfxdkxdh metabolic 2000 panel - Serum or PlasmaToledo Hospitaltart: 00-53-2461GjxrtdyjyToledo Hospitaltart: 38-34-1328DndnmhjlfToledo Hospitaltart: 53-58-4269Lgfjw cultureToledo Hospitaltart: 06-02-2024 Referral to urologistToledo Hospitaltart: 82-81-4826Xvmrdabg therapy procedureToledo Hospitaltart: 42-85-6073Rxnnilax to nephrologistToledo Hospitaltart: 25-31-4103Gmtkdadw to occupational therapistToledo Hospitaltart: 06-02-2024 End: 15-83-4729PxgwmerdxToledo Hospitaltart: 83-56-8527Pqzofxha admissionToledo Hospitaltart: 97-76-7455Jfafopue identified in Urine by CultureUrine CultureToledo Hospitaltart: 86-95-4509Hiaxbscnydb of Kidneys, Ureters and Bladder using Low Osmolar Contrast [facility]: 50-35-4271JwkruixxuToledo Hospitaltart: 75-04-5435QtuwkopvhToledo Hospitaltart: 05-24-2024 [facility]: 05-19-2024 End: 52-59-5296PeleqwckyToledo Hospitaltart: 31-24-3662YjhkdzwypToledo Hospitaltart: 76-13-6617BvhdxbcylToledo Hospitaltart: 67-47-2802BfnbrokkgToledo Hospitaltart: 21-94-5170Fgvsp-19 Vaccine ()Covid-19 Vaccine ()[facility]: 91-20-7238Qcdwfyvm blood countHemoglobin/HematocritBarney Children's Medical Centertart: 05-78-7256Weahldulbk measurementSerum CreatinineBarney Children's Medical Centertart: 79-66-0370QlvzlewcgToledo Hospitaltart: 03-24-2024 End: 90-96-7975DbaycrukgToledo Hospitaltart: 52-53-8998LhbqussrdToledo Hospitaltart: 60-56-2969YaeqveronToledo Hospitaltart: 92-76-5593SxinnechkToledo Hospitaltart: 78-17-9808EiehdlcybToledo Hospitaltart: 69-19-3775KcgdvnedsToledo Hospitaltart: 19-62-9760WIMVTSJQXL/HEMATOCRITHEMOGLOBIN/HEMATOCRITBarney Children's Medical Centertart: 43-47-7068DOZVF CREATININESERUM CREATININEBarney Children's Medical Centertart: 02-19-2024 [facility]: 96-41-7862DkomzuykmToledo Hospitaltart: 61-41-8960TupmaukqaToledo Hospitaltart: 01-22-2024 [facility]: 27-91-2277Ibukzdvc to urologistToledo Hospitaltart: 14-31-5272Znhesied to nephrologUpper Valley Medical Centertart: 42-29-7685Ieqfzluh admissionToledo Hospitaltart: 10-46-4211PlnmyihuuToledo Hospitaltart: 00-35-5021Sveju chest X-rayXR chest 1V portableHolzer Medical Center [facility] Start: 94-01-3019Qzwvlnes identified in Blood by CultureToledo Hospitaltart: 82-79-5679Pgxnhqac identified in Urine by CultureToledo Hospitaltart: 11-52-2806Hglqh culture for bacteria, including anaerobic screenBlood CultureToledo Hospitaltart: 12-18-2023 [facility]: 35-55-4067EoqopkdtnToledo Hospitaltart: 13-92-2818SsitntyfpToledo Hospitaltart: 10-08-2023 [facility] CenterStart: 09-92-0241IosugagqfCincinnati Shriners Hospital CenterStart: 01-65-8804KenrpjwytToledo Hospitaltart: 08-26-2023 End: 40-90-0983DsixmucerCinc[facility]riners Hospital CenterStart: 15-83-1621IbjocxpgtCinc[facility]ers Hospital CenterStart: 72-58-0308LswlgecmiCincinnati Shriners Hospital CenterStart: 14-19-0582SrjlhohzvCincinnati Shriners Hospital CenterStart: 66-83-2531SjqevczmyC[facility]riners Hospital CenterStart: 67-62-9157VdsoxekscC[facility]riners Hospital CenterStart: 96-36-0659NjaturbzqC[facility]ers Hospital CenterStart: 48-52-6487SnhunqhmgC[facility]innati [facility]riners Hospital CenterStart: 01-64-4503LlnnpbrdeCincinnati [facility]riners Hospital CenterStart: 12-33-8622TjddururpC[facility]riners Hospital CenterStart: 79-40-2289ViglwzzkpCinc[facility]ers Hospital CenterStart: 05-19-2023 End: 21-92-2888AvbqzjzjkCincinnati Shriners Hospital CenterStart: 83-81-7448Armmztswutjscf for UrineCincinnati Shriners Hospital CenterStart: 00-13-0977FzzleeqwnC[facility] Hospital CenterStart: 69-61-0560HlzeeclmmC[facility]riners Hospital CenterStart: 24-89-9333CoqqbzxokC[facility]ers Hospital CenterStart: 27-73-0082Qzlitwwbg vaccinationINFLUENZA (#1)[facility]ertart: 68-80-4157EyeddaqkoCincinnati Shriners Hospital CenterStart: 43-87-7305RrvgigxbvCincinnati Shriners Hospital CenterStart: 83-06-5377PjtdtuhjpC[facility]riners Hospital CenterStart: 03-10-2023 End: 05-46-8807IhhucseptCinc[facility]ers Hospital CenterStart: 21-24-8756WmwvvmxdsCincinnati [facility]riners Hospital CenterStart: 29-59-4391PhmryhltgCinc[facility]riners Hospital CenterStart: 44-79-1651SkzzyceucCincinnati Shriners Hospital CenterStart: 61-14-4758UotquciunCinc[facility]riners Hospital CenterStart: 31-63-6404ZxnrijzfkCincinnati Shriners Hospital CenterStart: 16-87-0873UwgqvsjwxC[facility]ers Hospital CenterStart: 54-91-7402YpgvvyyisCincinnati Shriners Hospital CenterStart: 14-14-4049LlnwuxlxiC[facility]riners Hospital CenterStart: 94-54-9262LwfcawzfyC[facility]ers Hospital CenterStart: 50-09-3086PvjaxrfttCincinnati Shriners Hospital CenterStart: 90-41-8431BH prostate wo conMR prostate wo [facility]: 20-24-4309HZ Prostate WO contrastCincinnati Shriners Hospital CenterStart: 53-72-3283Zifgm cultureUrine CultureToledo Hospitaltart: 73-79-1379FazblfaemToledo Hospitaltart: 97-47-0677MggfsxiedToledo Hospitaltart: 67-45-3791QzauosikqToledo Hospitaltart: 68-72-6228LjuurilhzToledo Hospitaltart: 72-14-2496GijxnyqjtToledo Hospitaltart: 21-90-1882IutzkbculToledo Hospitaltart: 56-64-5966PadgvxsgcToledo Hospitaltart: 31-69-2995OqbxnjhrtToledo Hospitaltart: 03-30-6828Dzqtscca identified in Urine by CultureToledo Hospitaltart: 89-91-9623EeepydqnbToledo Hospitaltart: 62-34-7027RviyxjloiToledo Hospitaltart: 84-73-5480FkqfvwwvbToledo Hospitaltart: 91-20-3093CNHPHWF DIRECTIVE DISCUSSIONADVANCE DIRECTIVE DISCUSSIONBarney Children's Medical Centertart: 08-17-2022 DEPRESSION ASSESSMENTDEPRESSION ASSESSMENTBarney Children's Medical Centertart: 07-28-2022 End: 12-54-4914MsujapmfvToledo Hospitaltart: 07-25-2022 End: 13-33-8130BkqzqorlzToledo Hospitaltart: 24-54-7750KyomlhtkoToledo Hospitaltart: 42-45-2860BwwekenjuToledo Hospitaltart: 04-30-2022 End: 56-83-0237HkgynaqcyToledo Hospitaltart: 46-20-1685Vmdoicgxssirfk for UrineCincinnati Shriners Hospital Ctr Work Phone: Start: 04-30-2022 End: 29-57-4747TlfmeydibCincinnati Shriners Hospital Ctr Work Phone: Start: 68-73-3583IZ guided biopsyCincinnati Shriners Hospital Ctr Work Phone: Start: 78-93-0397Dkfcyz biopsyCT guided biopsy [facility]: 90-79-5564Xbpphwvkey RecurringAnemia of renal diseaseProvidence Hospital-Cancer CenterStart: 2022 [facility] CenterStart: 18-17-6799IstqbyivlCincinnati Shriners Hospital CenterStart: 08-16-1958CikohtmdwCincinnati Shriners Hospital CenterStart: 11-25-2021 [facility] CenterStart: 71-74-9530XosjhdufgCincinnati Shriners Hospital CenterStart: 63-74-7822YdxvyhodlCincinnati Shriners Hospital CenterStart: 08-19-2021 Pneumococcal Vaccine: 50+ (2 of 2 - PPSV23)Pneumococcal Vaccine: 50+ (2 of 2 - PPSV23)[facility]: 58-68-6861Wjxbplwlhisn Vaccine: 50+ (2 of 2 - PPSV23, PCV20, or PCV21)Pneumococcal Vaccine: 50+ (2 of 2 - PPSV23, PCV20, or PCV21)[facility]ert[facility]: 35-76-5357MKJATTYWCGDZ: 65+ (2 - PPSV23 if available, else PCV20)PNEUMOCOCCAL: 65+ (2 - PPSV23 if available, else PCV20) [facility]: 95-76-6624NVMOTDNKBEFX: 65+ (2 - PPSV23 or PCV20) PNEUMOCOCCAL: 65+ (2 - PPSV23 or PCV20)[facility]ert[facility]: 08-14-2021 [facility]: 49-87-0282AHRUN-19 VACCINE (4 - Booster for Pfizer series)COVID-19 VACCINE (4 - Booster for Pfizer series)[facility]: 04-44-2605BOWVW-19 VACCINE (5 - Booster)COVID-19 VACCINE (5 - Booster)[facility]ert[facility]: 06-17-2021 End: 44-32-5623VuhaltcebToledo Hospitaltart: 94-66-8278QvyhuzzsiToledo Hospitaltart: 04-25-2021 End: 54-34-5936JdequakvxCincinnati Shriners Hospital CenterStart: 83-76-0836CemsrawswToledo Hospitaltart: 50-37-1687XhrksfgmsToledo Hospitaltart: 15-47-1716HhvclfexhCincinnati Shriners Hospital CenterStart: 06-19-4579MddkpukziCincinnati Shriners Hospital CenterStart: 51-82-1689HcdqbxifiToledo Hospitaltart: 04-16-2020 End: 19-12-8440RjkkwmdewToledo Hospitaltart: 04-12-2020 End: 90-78-5052ZabavbfyhToledo Hospitaltart: 79-95-3818MqwsarmdaToledo Hospitaltart: 03-21-2020 End: 06-35-2227DgjsplbscToledo Hospitaltart: 49-35-9984DajuavxlqToledo Hospitaltart: 86-64-8148VdookaglfToledo Hospitaltart: 12-88-8630YJU Vaccine (1 - 1-dose 75+ series)RSV Vaccine (1 - 1-dose 75+ series) [facility]: 21-77-9791HUKEEBIAKTGD: 65+ (1 - PCV)PNEUMOCOCCAL: 65+ (1 - PCV)[facility]ertart: 05-01-2005Medicare Annual Wellness VisitMedicare Annual Wellness VisitBarney Children's Medical Centertart: 18-27-9172XRKJDABE VACCINE (1 of 2) SHINGRIX VACCINE (1 of 2)[facility]ert[facility]: 85-41-9826OAIXQFPY SCREEN DIABETES SCREENBarney Children's Medical Centertart: 76-23-2317Bvpcw microalbumin profile DTAP,TDAP,TD (1 - Tdap)[facility]: 75-09-7799BHKMOW PCP TEAM CHRONIC DISEASE VISITANNUAL PCP TEAM CHRONIC DISEASE VISITBarney Children's Medical Centertart: 14-91-5870Gjckgil ScreeningAnxiety ScreeningBarney Children's Medical Centertart: 68-73-3390ZR CONTROLLED (<130/80)BP CONTROLLED (<130/80)[facility]ertart: 1963 Depression ScreeningDepression ScreeningBarney Children's Medical Centertart: 1963 HEMOGLOBIN/HEMATOCRITHEMOGLOBIN/HEMATOCRITBarney Children's Medical Centertart: 1963 Hepatitis B surface antibody levelLDL CHOLESTEROLBarney Children's Medical Centertart: 00-15-7782RSGUUUCIQ C SCREENINGHEPATITIS C SCREENINGBarney Children's Medical Centertart: 60-95-9752GZVZO CREATININESERUM CREATININEBarney Children's Medical Centertart: comp foot exam completedDIABETIC FOOT EXAMBarney Children's Medical Centertart: 1955 Diabetic foot examinationDiabetic Foot ExamBarney Children's Medical Centertart: 1955 Glaucoma screeningDilated Retinal ExamBarney Children's Medical Centertart: 43-28-9990Asaalzlxc B screeningURINE ALBUMIN:CREATININE RATIOBarney Children's Medical Centertart: 1955 Hepatitis C antibody, confirmatory testDILATED RETINAL EXAMMemorial Health System [facility] Start: 32-74-7841Cfkeefvuhm A1c njzecfgktjvMwC2YVocigllcf ClinicStart: 34-73-9655Esnnpzyoaf A1c/Hemoglobin.total in WrzgmQJH1YIlhedjeqp Cxjykx29 hour urine measurementCincinnati Shriners Hospital Ctr Work Phone: [phone] hour urine measurementHolzer Medical Center – Jackson24 hour urine measurementHolzer Medical Center – JacksonAlbumin [Mass/volume] in Serum or PlasmaCincinnati Shriners Hospital Ctr Work Phone: Albumin [Mass/volume] in Serum or PlasmaHolzer Medical Center – JacksonAlbumin [Mass/volume] in Serum or PlasmaHolzer Medical Center – JacksonAlbumin/Globulin ratioCincinnati Shriners Hospital [facility]tr Work Phone: Albumin/Globulin ratioHolzer Medical Center – JacksonAlbumin/Globulin ratioHolzer Medical Center – JacksonAlbumin/Globulin ratioHolzer Medical Center – JacksonAnion gap measurementHolzer Medical Center – JacksonAnion gap measurementHolzer Medical Center – JacksonaPTT in Platelet poor plasma by Coagulation assayProvidence Hospital Work Phone: aPTT in Platelet poor plasma by Coagulation assay [facility] – JacksonBacteria identified in Urine by CultureUrine culture Microbiology STAT 02/08/2025 2:45 PM [facility] Work Phone: Basophils [#/volume] in Blood by Automated count [facility] JacksonBasophils/100 leukocytes in Blood by Automated countHolzer Medical Center – JacksonBlood chemistryProvidence Hospital Work Phone: Comprehensive metabolic 1999 panel - Serum or Plasma [facility] Work Phone: Comprehensive metabolic 1999 panel - Serum or Plasma [facility] JacksonComprehensive metabolic 1999 panel - Serum or [facility] HospitalComprehensive metabolic 1999 panel - Serum or PlasmaHolzer Medical Center – JacksonComprehensive metabolic 1999 panel - Serum or [facility] HospitalComprehensive metabolic 1999 panel - Serum or PlasmaHolzer Medical Center – JacksonComprehensive metabolic 1999 panel - Serum or PlasmaHolzer Medical Center – Jackson Comprehensive metabolic 1999 panel - Serum or PlasmaHolzer Medical Center – JacksonComprehensive metabolic 1999 panel - Serum or PlasmaHolzer Medical Center – JacksonComprehensive metabolic 1999 panel - Serum or [facility] HospitalComprehensive metabolic 1999 panel - Serum or Plasma [facility] JacksonComprehensive metabolic 1999 panel - Serum or PlasmaHolzer Medical Center – JacksonComprehensive metabolic 1999 panel - Serum or PlasmaHolzer Medical Center – JacksonComprehensive metabolic 1999 panel - Serum or PlasmaHolzer Medical Center – JacksonComprehensive metabolic 1999 panel - Serum or PlasmaHolzer Medical Center – JacksonComprehensive metabolic 1999 panel - Serum or PlasmaHolzer Medical Center – [place] Comprehensive metabolic 1999 panel - Serum or PlasmaHolzer Medical Center – JacksonComprehensive metabolic 1999 panel - Serum or [facility] HospitalCT guided biopsyCincinnati Shriners [facility]tr Work Phone: Electrophoresis: oqmei-0-lgvaalqhSobylxkquProMedica [facility]iance [facility] Work Phone: Electrophoresis: tgycp-9-mrilxcybTkvzahggrCleveland Clinic Marymount HospitalElectrophoresis: ezvfy-3-ceudhacqApoqzemokCleveland Clinic [facility]mount Hospital Electrophoresis: pcqhl-8-ptbphljiSdourdkjeProMedica Defiance Regional Hospital Work Phone: Electrophoresis: yzqyt-0-xwnaxubsAmnuehkhnCleveland Clinic Marymount HospitalElectrophoresis: ozkvw-1-nvmhzexcRsgrfopblC[facility] Clinic [facility] Hospital Electrophoresis: beta-globulinCincinnati Shriners [facility]tr Work Phone: Electrophoresis: beta-[facility] HospitalElectrophoresis: beta-[facility] Electrophoresis: gamma globulinCincinnati Shriners Hospital [facility] Work Phone: Electrophoresis: gamma [facility] HospitalElectrophoresis: [facility] Eosinophils/100 leukocytes in Blood by Automated [facility] HospitalErythrocyte distribution width [Ratio] by Automated [facility] HospitalErythrocytes [#/volume] in BloodHolzer Medical Center – JacksonErythropoietin (EPO) [Units/volume] in Serum or [facility] HospitalFerritin [Mass/volume] in Serum or [facility] HospitalFREE K+L LT CHAINS, QN, SFREE K+L LT CHAINS, QN, S Lab Routine 01/30/2025 1:21 PM [facility] Work Phone: Globulin [Mass/volume] in [facility] Work Phone: Globulin [Mass/volume] in [facility]Mass/[facility] in [facility] Globulin [Mass/volume] in [facility] HospitalGlucose measurement estimated from glycated hemoglobinHolzer Medical Center – Jackson End: 92-86-8748Iyvqbxab for exchange of nephrostomy tube of KidneyIR NEPH TUBE CHANGE Radiology Routine Ureteral stricture Once per month for 12 Occurrences /31/2025 until 03/17/2026[facility] Work Phone: Comment on above:Once per month for 12 Occurrences starting 03/16/2025 until 03/17/2026Hematocrit [Volume Fraction] of Blood [facility] JacksonHemoglobin [Mass/volume] in [facility] HospitalHemoglobin A1c/Hemoglobin.total in [facility] HospitalHomocysteine [Moles/volume] in Serum or [facility] HospitalHomocysteine [Moles/volume] in Serum or [facility] HospitalIgA [Mass/volume] in Serum or [facility] Work Phone: IgA [Mass/volume] in Serum or [facility] HospitalIgA [Mass/volume] in Serum or [facility] HospitalIgA [Mass/volume] in Serum or [facility] HospitalIgG [Mass/volume] in Serum or [facility] Work Phone: IgG [Mass/volume] in Serum or [facility] HospitalIgG [Mass/volume] in Serum or [facility] HospitalIgG [Mass/volume] in Serum or [facility] HospitalIgM [Mass/volume] in Serum or [facility] Work Phone: IgM [Mass/volume] in Serum or [facility] HospitalIgM [Mass/volume] in Serum or [facility] HospitalIgM [Mass/volume] in Serum or [facility] Immunofixation for [facility] Work Phone: Immunofixation for [facility] HospitalImmunofixation for [address] HospitalImmunofixation for [address] HospitalImmunofixation for [address] HospitalImmunofixation for [facility] Immunofixation for [address] HospitalImmunofixation for [address] HospitalImmunofixation for [address] HospitalImmunofixation for [facility] Immunofixation for [address] HospitalIMMUNOFIXATION, (JOSE C), URINEIMMUNOFIXATION, (JOSE C), URINE Lab Routine 05/20/2024 12:58 PM [facility] Work Phone: IMMUNOGLOBULINS A/G/M, QN, SERIMMUNOGLOBULINS A/G/M, QN, SER Lab Routine 05/20/2024 12:58 PM [facility] Work Phone: IMMUNOGLOBULINS A/G/M, QN, SERIMMUNOGLOBULINS A/G/M, QN, SER Lab Routine 09/27/2024 12:22 PM [facility] Work Phone: INR in Platelet poor plasma by Coagulation assay [facility] – JacksonKaa light chains.free [Mass/volume] in Serum [facility] Work Phone: Kappa light chains.free [Mass/volume] in Serum [facility] – JacksonKappa light chains.free [Mass/volume] in Serum [facility] – JacksonKaa light chains.free/Lambda light chains.free [Mass Ratio] in [facility] Work Phone: Kappa light chains.free/Lambda light chains.free [Mass Ratio] in SerumHolzer Medical Center – JacksonKappa light chains.free/Lambda light chains.free [Mass Ratio] in SerumHolzer Medical Center – JacksonLactate dehydrogenase [Enzymatic activity/volume] in Unspecified specimenProvidence Hospital Work Phone: Lactate dehydrogenase [Enzymatic activity/volume] in Unspecified specimenHolzer Medical Center – JacksonLactate dehydrogenase [Enzymatic activity/volume] in Unspecified specimenHolzer Medical Center – JacksonLactate dehydrogenase [Enzymatic activity/volume] in Unspecified specimen [facility] – JacksonLactate dehydrogenase [Enzymatic activity/volume] in Unspecified specimenHolzer Medical Center – JacksonLambda light chains.free [Mass/volume] in Serum or PlasmaC[facility]innati [facility] Work Phone: Lambda light chains.free [Mass/volume] in Serum or PlasmaHolzer Medical Center – JacksonLambda light chains.free [Mass/volume] in Serum or [facility] HospitalLeukocytes [#/volume] corrected for nucleated erythrocytes in Blood by Automated [facility] HospitalLeukocytes [#/volume] in BloodHolzer Medical Center – Jackson Lymphocytes [#/volume] in Blood by Automated [facility] HospitalLymphocytes/100 leukocytes in Blood by Automated [facility] HospitalMCH [Entitic mass] by Automated [facility] HospitalMCHC [Mass/volume] by Automated [facility] HospitalMCV [Entitic volume] by Automated [facility] HospitalMeasurement of monoclonal protein concentrationCincinnati Shriners Hospital Ctr Work Phone: Measurement of monoclonal protein concentration [facility] JacksonMeasurement of monoclonal protein concentration [facility] – JacksonMethylmalonate [Moles/volume] in Serum or PlasmaHolzer Medical Center – JacksonMethylmalonate [Moles/volume] in Serum or [facility] HospitalMonocytes [#/volume] in Blood by Automated countHolzer Medical Center – JacksonMonocytes/100 leukocytes in Blood by Automated countHolzer Medical Center – JacksonNeutrophils [#/volume] in Blood by Automated countHolzer Medical Center – JacksonNeutrophils/100 leukocytes in Blood by Automated countCritical Access Hospitals Regional Medical CenterNucleated erythrocytes [Presence] in Blood by Automated [facility] HospitalPatient EducationCincinnati Shriners Hospital [facility]tr Work Phone: Patient referralCincinnati Shriners Hospital [facility]tr Work Phone: Platelet mean volume [Entitic volume] in Blood by Automated [facility] HospitalPlatelets [#/volume] in Blood [facility] – JacksonProtein [Mass/volume] in Serum or Plasma [facility] Work Phone: Protein [Mass/volume] in Serum or PlasmaHolzer Medical Center – JacksonProtein [Mass/volume] in Serum or PlasmaHolzer Medical Center – JacksonProtein [Mass/volume] in UrineCincinnati Shrin[facility] Work Phone: Protein [Mass/volume] in UrineHolzer Medical Center – JacksonProtein [Mass/volume] in [facility] Prothrombin time (PT)[facility] – JacksonRadiologic examination osseous survey [facility]edoRadiologic examination osseous survey [facility] ToledoRenal function 2000 panel - Serum or [facility] HospitalRenal function 2000 panel - Serum or [facility] HospitalRenal function 1999 panel - Serum or [facility] HospitalRenal function 1999 panel - Serum or [facility] HospitalRenal function 1999 panel - Serum or [facility] HospitalRenal function 2000 panel - Serum or [facility] HospitalRenal function 2000 panel - Serum or [facility] Hospitalerum immunofixationCincinnati Shriners Hospital [facility]tr Work Phone: [facility] Immunizations Immunization DateImmunizationNotesCare FxxmhgzyAejzdcir53-43-2969vtpisoerr virus vaccine, unspecified formulationKathy Lue [facility] [place] 762252-12-2023influenza virus vaccine, unspecified formulationKathy Lue [facility] [place] 762252-12-2022hepatitis A vaccine, adult dosageMD Helen Ochoa Work Phone: [facility]10-02-2022influenza (HD-IIV4) vaccine, age 65+ yr, high dose, quadrivalent, PF (FLUZONE HIGH-DOSE) Pac 2 Work Phone: [facility] HospitalIxlsnn10-84-9414gtomknvqy virus vaccine, unspecified formulationKathy Lue [facility]07-18-2022zoster vaccine recombinantKathy Lue [facility]06-22-2022hepatitis A vaccine, adult dosageMD Helen Ochoa Work Phone: [facility]12-15-2021zoster vaccine recombinantKathy Lue [facility] [place] 762251-30-2021influenza (aIIV4) vaccine, age 65+ yr, quadrivalent, PF (FLUAD QUAD)Pac 2 Work Phone: [facility] HospitalNrqkey85-47-7857prrrjpxxu virus vaccine, unspecified formulationKathy Lue [facility] [place] 762251-08-2021diphtheria, tetanus toxoids and acellular pertussis vaccine Orquidea Lue [facility] [place] 762251-08-2021diphtheria, tetanus toxoids and acellular pertussis vaccine, 5 pertussis antigensMD Helen Ochoa Work Phone: [facility]11-08-2021haemophilus influenzae type b vaccine, PRP-T conjugateMD Helen Ochoa Work Phone: [facility]11-08-2021hepatitis B vaccine, pediatric or pediatric/adolescent dosageMD Helen Ochoa Work Phone: [facility]11-08-2021 pneumococcal conjugate vaccine, 13 valentMD Helen Ochoa Work Phone: [facility]10-19-2021SARS-CoV-2 (COVID-19) Ad26 vaccine, [facility] HospitalCh[facility] [id number], tetanus toxoids and acellular pertussis vaccineKathy Lue [facility]09-13-2021diphtheria, tetanus toxoids and acellular pertussis vaccine, 5 pertussis antigensMD Helen Ochoa Work Phone: [facility]09-13-2021haemophilus influenzae type b vaccine, PRP-T conjugateMD Helen Ochoa Work Phone: [facility]09-13-2021hepatitis B vaccine, pediatric or pediatric/adolescent dosageMD Helen Ochoa Work Phone: [facility]09-13-2021 meningococcal ACWY vaccine, unspecified formulationKathy Lue [facility]09-13-2021meningococcal polysaccharide (groups A, C, Y and W-135) diphtheria toxoid conjugate vaccine (MCV4P)MD Helen Ochoa Work Phone: [facility]09-13-2021 pneumococcal conjugate vaccine, 13 valentMD Helen Ochoa Work Phone: [facility]07-19-2021diphtheria, tetanus toxoids and acellular pertussis vaccineKatPrisma Health [facility]07-19-2021diphtheria, tetanus toxoids and acellular pertussis vaccine, 5 pertussis antigensMD Helen Ochoa Work Phone: [facility]07-19-2021haemophilus influenzae type b vaccine, PRP-T conjugateMD Helen Ochoa Work Phone: [facility]07-19-2021hepatitis B vaccine, pediatric or pediatric/adolescent dosageMD Helen Ochoa Work Phone: [facility]07-19-2021 meningococcal ACWY vaccine, unspecified formulationKatPrisma Health [facility]07-19-2021meningococcal polysaccharide (groups A, C, Y and W-135) diphtheria toxoid conjugate vaccine (MCV4P)MD Helen Ochoa Work Phone: [facility]07-19-2021 pneumococcal conjugate vaccine, 13 valentMD Helen Ochoa Work Phone: [facility]03-30-2021SARS-CoV-2 (COVID-19) Ad26 vaccine, Rachana Seals Jr. [facility] [id number]-WkO-4 (COVID-19) Ad26 vaccine, recombinantPatsy Seals Jr. [facility] [id number]-QiY-8 (COVID-19) mRNA-1273 Breonna Seals Jr. [facility] comment on above:Result Comment: wrong dateResult Comment: wrong yrhg17-58-7328hsiarwonr virus vaccine, unspecified formulation Patsy Seals [facility] [phone]dcmwrok virus vaccine, unspecified formulationKathy Lue [facility] [place] 762250-17-2019influenza virus vaccine, unspecified formulationKathy Lue [facility] [place] 762250-17-2019influenza, high dose seasonal, preservative-freePacc 2 Work Phone: [facility] HospitalAhusjr15-71-6440skblcvwmq virus vaccine, unspecified formulationKathy Lue [facility] [place] 762251-18-2015influenza, high dose seasonal, preservative-freePacc 2 Work Phone: [facility] HospitalQyflqp81-16-0811glprlhylneek conjugate vaccine, 13 valentKathy Lue [facility]03-13-2014zoster vaccine, liveKathy Lue [facility] Payers DatePayer CategoryPayerPolicy [id number]-fjx [id number] 1.2.840.127620.1.13.693.2.7.3.154658.07438-31-5302Upeqoyl Health Insurance 1.2.840.488735.1.13.159.2.7.3.796275.31505-01-2005Medicare 1.2.840.892327.1.13.159.2.7.3.8212[id number] 2.16840.4.28931[id number] 2.16840.1.553572.3.579.2.[id number] 2.16840.1.729502.3.57[id number] 2.840.1.028008.3.579.2.12551-63-0592Udjouhe441503748 2.840.1.406775.3.579.2.20163-08-5420Oxtsesl908292363 2.840.1.794474.3.579.2.37382-24-4054Hsnpnog955306294 2.840.1.391025.3.579.2.08454-81-8330Gtanxzn473154157 2.840.1.200582.3.579.2.60389-14-0447Mrgjrbn6762129 2.16840.1.369857.3.579.2.31708-00-2741Zcrtkef6093163 2.16840.1.381578.3.579.2.76035-93-2564Rpidlwx6816816 2.16840.1.576114.3.579.2.31908-77-3881Dgyhcpc1771649 2.16840.1.532893.3.579.2.03577-54-6651Tzfmhti9493706 2.16840.1.472336.3.579.2.84785-68-1631Xcrmknu6605104 2.16.840.1.286089.3.579.2.99922-93-9627Ojmlcrz8570860 2.16.840.1.404701.3.579.2.57587-54-5811Bresizg0177957 2.16.840.1.483357.3.579.2.24835-86-9679Svcxkut8341326 2.16.840.1.567495.3.579.2.83686-34-0412Rlmgopw8373254 2.16.840.1.261225.3.579.2.81814-54-3205Orluahx1725015 2.16840.1.239187.3.579.2.00528-20-3524Mkwvghu6640151 2.840.1.691212.3.579.2.29106-31-3377Uxhawdg94286937 2.16.840.1.211832.3.579.2.73111-91-8444Qoeirnu99993007 2.16.840.1.750923.3.579.2.34636-05-4313Ctfiwlf14161038 2.16840.1.854858.3.579.2.28903-72-3983Seuawtr99951815 2.16840.1.758334.3.579.2.03163-03-7442Wzcraxl55369461 2.16.840.1.549727.3.579.2.54532-04-5265Erygycp91382749 2.16.840.1.240728.3.579.2.53633-83-2622Zdvirod38326719 2.16840.1.283483.3.579.2.59497-97-1983Uzvuwld69268946 2.16.840.1.974619.3.579.2.33537-54-7485Pkdeimp70566589 2.16.840.1.135399.3.579.2.82535-93-7979Kebenad13554499 2.16.840.1.316353.3.579.2.52520-70-9758Wtvuhzu88165809 2.16840.1.155109.3.579.2.64875-81-6028Qrhxgor46386130 2.840.1.753630.3.579.2.36668-25-7640Bjuletd03110067 2.16840.1.143289.3.579.2.70549-37-1733Ezuwhmu61136737 2.840.1.741183.3.579.2.87897-70-7057Vgskzum00462853 2.840.1.308170.3.579.2.14592-31-4711Zvunakc43809658 2.840.1.319349.3.579.2.55115-14-9066Kmqnumn61309310 2.840.1.571741.3.579.2.45325-70-0268Dempbtt03970120 2.840.1.796346.3.579.2.18909-85-6916Lioqafp85076128 2.840.1.421427.3.579.2.51376-43-7968Gtfsayk80449193 2.16.840.1.255591.3.579.2.36281-01-8763Vdnlcbf35593739 2.16840.1.505802.3.579.2.32572-66-6788Ztyxjoy51682768 2.16840.1.141666.3.579.2.93854-65-6582Vysvqzc72241787 2.840.1.594552.3.579.2.58557-80-6609Owobnqo88248074 2.840.1.894594.3.579.2.44393-61-7105Qpmuoio29395740 2.16840.1.088704.3.579.2.92083-32-1892Gvhwhbg78050823 2.840.1.580447.3.579.2.40323-90-4614Phwvkto85063719 2.840.1.612263.3.579.2.62936-36-3798Qakdkxt87497596 2..1.407770.3.579.2.23715-34-3763Gcnnjog15038203 2.840.1.292826.3.579.2.75416-16-3658Ttciwpc59506088 2.840.1.482702.3.579.2.37842-39-2007Rzgtemo43480985 2..1.305765.3.579.2.18372-54-5683Czfedus71766606 2.840.1.015753.3.579.2.54085-73-5612Kswihyk36823698 2.840.1.156081.3.579.2.04116-92-1512Fwlhzcn56920007 2.840.1.929252.3.579.2.30452-66-8547Rhelyaq00783764 2.840.1.489911.3.579.2.87611-31-4267Ymjgllu27941018 2.16.840.1.858354.3.579.2.73342-91-7022Jncuxxc63461467 2.840.1.094402.3.579.2.63807-00-5287Gnzrqtv03392295 2.16840.1.606754.3.579.2.50507-17-5754Ggwyhcp43677417 2.840.1.207863.3.579.2.23211-49-0162Qjczkll52707740 2.840.1.790022.3.579.2.72939-51-4151Xcymdsb52561474 2.840.1.003715.3.579.2.55981-17-1956Zzevgvu44500369 2..1.676895.3.579.2.07917-85-6828Ihbljwp40088086 2.840.1.339245.3.579.2.28573-63-5611Jbunrcp16957472 2.840.1.396905.3.579.2.29996-45-5369Xtmxqur55489749 2..1.696181.3.579.2.84118-87-4396Aqfpefa58326187 2.840.1.827137.3.579.2.47029-52-0666Wcslxlp77662834 2.840.1.843342.3.579.2.90946-78-7626Ocaogek06413726 2.840.1.274973.3.579.2.05286-77-7638Cfhzcsh66249975 2.840.1.218453.3.579.2.16411-78-1512Dymctii10443786 2.16.840.1.433842.3.579.2.02626-38-4380Uwjeelu13860303 2.16.840.1.229051.3.579.2.87724-93-2721Ojpmjpr08189548 2.16.840.1.498906.3.579.2.43120-18-3352Ydoofmz62403579 2.16.840.1.507018.3.579.2.48289-82-7339Qlgobbe61978071 2.16.840.1.972989.3.579.2.25743-76-9234Ghavyrw97636964 2.16840.1.746815.3.579.2.87981-30-6116Ufctmsk33959698 2.16840.1.523554.3.579.2.01081-61-1226Anpkhrf86863972 2.16840.1.270393.3.579.2.71967-67-9948Itbpopi85666808 2.16840.1.509374.3.579.2.27361-97-8963Rxazvvz04125136 2.840.1.719078.3.579.2.76916-25-5404Ctzygkv11915598 2.16840.1.044717.3.579.2.29968-60-3092Rhxhwlj67256303 2.16840.1.208393.3.579.2.61676-14-9592Cdbmdsc44183774 2.16840.1.251105.3.579.2.03826-66-4704Zvfgfsc38317152 2.16840.1.988191.3.579.2.97774-35-9529Xodevxc59686841 2.16.840.1.011623.3.579.2.70294-68-2801Qatjvao52442245 2.16.840.1.457575.3.579.2.92788-92-6627Vvnircn27324716 2.16.840.1.565599.3.579.2.30389-50-0618Zjwcrpg73247069 2.16.840.1.019073.3.579.2.93896-27-9588Vthggvi29207653 2.16.840.1.238914.3.579.2.49806-10-2480Jxujkey74847265 2.16.840.1.999008.3.579.2.47719-68-0419Dnhlhlc28008786 2.16.840.1.441239.3.579.2.37341-22-5276Zfcaldg28048839 2.16.840.1.952291.3.579.2.91686-66-5131Lavcjyf20941890 2.16.840.1.109213.3.579.2.08328-81-8080Qzptcwz38318830 2.16.840.1.241307.3.579.2.22204-63-3713Aaswbkb00117158 2.16.840.1.420322.3.579.2.46864-29-4279Kvrqfjq91168007 2.16.840.1.935402.3.579.2.93191-49-2040Zvosfad39561752 2.16.840.1.211515.3.579.2.58042-11-5815Gjmozrt29562061 2.16.840.1.801219.3.579.2.727MedicareA293405093 0x8605us-de94-8k50-8j3p-24c0vy970cp0Qabxbfk79656387848 2.16.840.1.582751.19 Uuzaick94472199 2.16.840.1.031866.3.579.2.099Dpotzkt77019310 2.16.840.1.941744.3.579.2.720Yvrzkxg53648128 2.16.840.1.158267.3.579.2.531 Xnypfqp51467009 2.16.840.1.241509.3.579.2.433Ymipclz35170635 2.16.840.1.979653.3.579.2.143Ocpgcfq37842814 2.16.840.1.439358.3.579.2.531 Kagjbnt93040034 2.16.840.1.483659.3.579.2.269Uduihyd38854460 2.16.840.1.852861.3.579.2.662Ezwxafs84729700 2.16.840.1.997721.3.579.2.531 Njssgfq00343276 2.16.840.1.871232.3.579.2.531 Social History DateTypeDetailFacilityStart: 11-13-2020 End: 07-96-4163Teivnvn smoking statusEx-smoker (finding)[facility] [employer] Other Comment on above:pt quit smoking 20 years agopt quit smoking 20 years agoStart: 01-07-2023 End: 25-71-7958Mts Assigned At [facility] [employer] Other Start: 02-05-2022 End: 31-52-7238Acwnhrn smoking status NHISNever smoked tobacco (finding) [facility]: 61-38-7405Kmu [facility]igned [facility]: 07-22-2023 End: 95-59-0554Ywwgwpo smoking statusNeverExecutive [facility] SanduskyComment on above:pt quit smoking 20 years agoTobacco smoking status NHISTobacco smoking consumption unknownAC[facility]IA [facility] HealthcareStart: 97-68-5212Hxe Assigned At BirthNot on fileMemorial Health System [facility] End: 96-30-8275Xqvjgxo of tobacco useCurrent smokerMemorial Health System Selby General Hospital End: 94-45-8759Uzbzqxi of tobacco useCigarette SmokerBarney Children's Medical Centertart: 01-07-2023 End: 30-47-1828Fxdddjzhat smoked current (pack per day) - Iqaawenh0Vimzwjktp ClinicStart: 14-89-7919Igezery use and exposureSmokeless tobacco non-user [facility]ertart: 30-63-0357Mojenky intakeCurrent drinker of alcohol (finding)[facility] Centertart: 17-28-7793Qnbumry Commentnone since 1990 [facility] Centertart: 11-28-2009 End: 53-83-8022MrgTrde (finding)[facility] JacksonTobaccoquit [facility] years Tobacco Use:.[facility] comment on above:pt quit smoking 20 years agoTobacco smoking statusExecutive [facility] Medical Equipment Procedure CodeEquipment CodeEquipment Original TextEquipment IdentifierDates Insertion of central venous catheter (CVC) with subcutaneous port for chemotherapy()[id number](33)[id number] FDAStart: 03-09-2020 Fluoroscopic guidance for insertion of tunnelled dialysis [id number] FDAStart: 68-70-3804Ioksgelxalsh guidance for insertion of tunnelled dialysis [id number]: 83-16-8306Byvykqzvbrur guidance for insertion of tunnelled dialysis [id number]: 75-52-6764Rtulxewsbesj guidance for insertion of tunnelled dialysis [id number]: 55-34-0961Idtijbyvjjbh guidance for insertion of tunnelled dialysis catheter [id number]: 06-65-7486Etoplxafmdiu guidance for insertion of tunnelled dialysis [id number]: 94-64-8583Ejmoldtiaugf guidance for insertion of tunnelled dialysis [id number]: 53-39-1207Fzpzjvrsvwgu guidance for insertion of tunnelled dialysis catheter [id number]: 90-95-3302Nixpzezcuutv guidance for insertion of tunnelled dialysis [id number]: 73-28-0091Ghdxpugunaox guidance for insertion of tunnelled dialysis [id number]: 56-64-9443Cwipisgvyjsd guidance for insertion of tunnelled dialysis catheter [id number]: 12-77-5807Sycrovreagmn guidance for insertion of tunnelled dialysis [id number]: 90-07-7449Fxiukpvgmfli guidance for insertion of tunnelled dialysis [id number]: 84-77-2428Qvzdcgjbvgdb guidance for insertion of tunnelled dialysis catheter [id number]: 59-75-5022Mfzdvepzledc guidance for insertion of tunnelled dialysis [id number]: 89-97-8215Tzanykrypwif guidance for insertion of tunnelled dialysis [id number]: 24-05-7804Rammratypyoz guidance for insertion of tunnelled dialysis catheter [id number]: 73-46-7748Mctyhalsghir guidance for insertion of tunnelled dialysis [id number]: 51-67-8673Jkmbvkixmwif guidance for insertion of tunnelled dialysis [id number]: 54-14-1378Mzixglxduehw guidance for insertion of tunnelled dialysis catheter [id number]: 23-60-3858Zxjtzlmetmfd guidance for insertion of tunnelled dialysis [id number]: 88-28-0249Nuxogwwkstow guidance for insertion of tunnelled dialysis [id number]: 77-24-0948Nwwmbizrvpxj guidance for insertion of tunnelled dialysis catheter [id number]: 88-69-6353Djntaeixkjwx guidance for insertion of tunnelled dialysis [id number]: 48-17-3066Jggubbojmajc guidance for insertion of tunnelled dialysis [id number]: 13-20-4358Ecoflqckhoxg guidance for insertion of tunnelled dialysis catheter [id number]: 92-79-1636Dzibfguejzet guidance for insertion of tunnelled dialysis [id number]: 49-54-4797Anqhenyvjqdh guidance for insertion of tunnelled dialysis [id number]: 39-06-5178Deaskokxhntn guidance for insertion of tunnelled dialysis catheter [id number]: 74-06-9616Kmgvvzxnsgjy guidance for insertion of tunnelled dialysis [id number]: 91-27-6214Wyjljmbrpmcu guidance for insertion of tunnelled dialysis [id number]: 21-98-9763Ukxdmixpkopn guidance for insertion of tunnelled dialysis catheter [id number]: 87-66-2869Rcplypsdizim guidance for insertion of tunnelled dialysis catheterFDAStart: 20-84-5716Ajjpmpsrrjby guidance for insertion of tunnelled dialysis catheterFDAStart: 68-31-5104Spphilmlzkca guidance for insertion of tunnelled dialysis [id number]: 81-27-2790Jrtzmexyznri guidance for insertion of tunnelled dialysis catheter [id number]: 40-57-6687Orgtggvnhqxb guidance for insertion of tunnelled dialysis [id number]: 88-20-2884Mrumevhingdk guidance for insertion of tunnelled dialysis [id number]: 35-03-9420Ywupilbbiqyi guidance for insertion of tunnelled dialysis catheter [id number]: 51-06-2988Urjwxctwyzhd guidance for insertion of tunnelled dialysis [id number]: 05-73-8797Ojfkovjbyfxg guidance for insertion of tunnelled dialysis [id number]: 02-20-8533Shipqiwhxvma guidance for insertion of tunnelled dialysis catheter [id number]: 05-91-4265Ajsazrjwtdjk guidance for insertion of tunnelled dialysis catheterFDAStart: 00-67-6617Ympiubhomvpd guidance for insertion of tunnelled dialysis [id number]: 03-08-2020 Fluoroscopic guidance for insertion of tunnelled dialysis catheterFDAStart: 79-23-3433Wereelljra, with ureteral calculus manipulation and stent placement [id number] FDAStart: 04-74-8550Fgnkl Inlay Callahan 6fr Taper Samish Green Polymer Phreecoat 26cm Ureteral - [id number] Start: 03-05-2023 Goals DatePatient GoalDesired Activity/StatePersonal health goal Functional Status RbenErbuidhtpiVfpuqmTjgvitfo60-49-4390Dghnbvcswe StatusN/A[facility]24-2024Functional StatusN/A[facility]10-25-2024Functional StatusN/A [facility] [place] 762250-20-2024Functional statusPatient at [facility] Work Phone: [phone]) [phone]pflvqoc statusPatient at Baseline [facility] Work Phone: [phone]) [phone]uzwctdw StatusN/A[facility]06-07-2024Functional statusPatient at [facility] Work Phone: [phone]) [phone]qd StatusN/A[facility]09-29-2023Functional StatusN/A[facility]06-30-2023Functional StatusN/A [facility]05-05-2023Functional StatusN/A[facility]04-21-2023 Functional StatusN/A[facility] 66-54-7492Arxfohgwmt StatusN/A[facility]03-02-2023Functional StatusN/A[facility]02-23-2023Functional StatusN/A[facility] [place] 757381-21-2022Functional StatusN/[facility]11-18-2022Functional StatusN/A[facility] Xczbfgll33-10-5914Kdkvvebxji StatusN/A[facility] Nlxamizi99-15-1799Dnrohclyfj StatusN/[facility]09-02-2022Functional StatusN/A[facility] [place] [facility]06-14-2022Functional StatusN/A[facility] Status KmaaYhxoopesrlLqhbpjAbzcldqu06-72-8576Xvkmrnbzf functionPatient at [facility] Work Phone: 1([phone]) [phone]ltensp functionCognitive Status [facility] Phone: [phone]) [phone]idlrvs functionCognitive Status [facility] Phone: Clinical Notes 03-15-2020 to 06-21-2025 Note Date & CuazDgxkBqykhaws54-16-3577 Hospital Discharge instructions Patient Education 06/21/2025 09:20:49 Percutaneous Nephrostomy Home Guide Percutaneous Nephrostomy Home [...] to your tube, one part connects to thedrainage bag, and one part is covered with a cap. The lever on the stopcock points to the part thatis closed to flow. Normally, it points to [...] or if it hurts when you push, stoppushing the flush. 6.Remove the syringe from the [...] provider. Document Revised: 02/19/2023 Document Reviewed: 02/19/2023 [employer] Patient Education 2023 [employer]. Follow Up Care 05/16/2025 15:52:25 With:Diego RICKS, OUSMANE Bell, URO Address: When: Unknown [facility] 11-05-2025 NotePatient Education Urology Percutaneous Nephrostomy Home Guide Percutaneous [...] to your tube, one part connects to thedrainage bag, and one part is covered with a cap. The lever on the stopcock points to the part thatis closed to flow. Normally, it points to [...] help keep it in place. Make sure thereis no tension on the tubing, so it [...] a second person to (more content not included)...[facility]10-[facility]-2025 NoteProgress Note-Physician Patient: PATSY MILLS Age: 80 years Sex: Male : 1945 Associated Diagnoses: None Author: Delmar Warren Jr, DO Preoperative Information Anesthesia Preop Info: Time patient last ate or drank 05/16/2025 00:00:00. Anesthesia history: Patient history: None. Family history+: None. Informed consent: Signed by patient. Re-evaluation prior to induction: Initial evaluation reviewed: No significant change. Review of Systems Eye: Negative except as documented in history of present illness. Ear/Nose/Mouth/Throat: Negative except as documented in history of present illness. Respiratory: Negative except as documented in history of present illness. Cardiovascular: Negative except as documented in history of present illness. Musculoskeletal: Negative except as documented in history of present illness. Neurologic: Negative except as documented in history of present illness. Health Status Allergies: Allergic Reactions (Selected) Severe Myrbetriq- Multiple open mouth wounds. Severity Not Documented Gabapentin- Rash and unknown. Latex- Rash. Lisinopril- Cough, unknown and dry cough. Problem list: All Problems UTI (urinary tract infection) / SNOMED CT 394169526 / Confirmed UTI symptoms / SNOMED CT 668976663 / Confirmed Ureteral stricture / SNOMED CT 52875454 / Confirmed Rheumatoid arthritis / SNOMED CT 857290371 / Confirmed Recurrent UTI / SNOMED CT 389937863 / Confirmed Weak urine stream / SNOMED CT 793184104 / Confirmed OAB (overactive bladder) / SNOMED CT 6511276112 / Confirmed Noncompliant bladder / SNOMED CT 1216342294 / Confirmed Nocturia / SNOMED CT 232057756 / Confirmed Multiple myeloma in remission / SNOMED CT 591430442 / Confirmed Microhematuria / SNOMED CT 820506255 / Confirmed Prostate cancer / SNOMED CT 7894200707 / Confirmed Kidney stones / SNOMED CT 018816290 / Confirmed HTN (hypertension) / SNOMED CT 4156671558 / Confirmed Hydroureteronephrosis / SNOMED CT 79724441 / Confirmed Hydroureter / SNOMED CT 431706052 / Confirmed History of kidney stones / SNOMED CT 4429225800 / Confirmed Glycosuria / SNOMED CT 69762894 / Confirmed Incomplete bladder emptying / SNOMED CT 792282248 / Confirmed Family history of prostate cancer in father / SNOMED CT 2366012970 / Confirmed Dysuria / SNOMED CT 42368135 / Confirmed Diabetes / SNOMED CT 481179824 / Confirmed Bilateral hydronephrosis / SNOMED CT 574013883 / Confirmed BPH with urinary obstruction / SNOMED CT 3145445323 / Confirmed Asymptomatic microscopic hematuria / SNOMED CT 4339894089 / Confirmed Resolved: Elevated cholesterol / SNOMED CT 38939841 Resolved: H/O sepsis / SNOMED CT 4785904738 Canceled: Aspirin long-term use / SNOMED CT 3019569725 Canceled: Kidney stone / SNOMED CT 499576777 Canceled: Gross hematuria / SNOMED CT 592174438 Canceled: Family history of prostate cancer / SNOMED CT 4931678737 Canceled: BMI 33.0-33.9,adult / SNOMED CT 096008140 Canceled: Asymptomatic microscopic hematuria / SNOMED CT 3144625125 Histories Procedure history: Cystoscopy ([id number]) on 05/16/2025 at 80 Years. Placement of nephrostomy catheter, percutaneous, including diagnostic nephrostogram and/or ureterogram when performed, imaging guidance (eg, ultrasound and/or fluoroscopy) and all associated radiological supervision and interpretation (15784) on 03/16/2025 at 80 Years. Cystoscopy, stent exchange, suprapubic cath exchange ([id number]) on 03/07/2025 at 80 Years. Cysto with bilateral stent exchange, suprapubic catheter exchange, ureteroscopy, right retrograde pyelogram ([id number]) on 07/28/2024 at 79 Years. Comments: 08/26/2024 15:18 Cornelia Escalona done at [facility] Cystoscopy, Left RPG, Left ureteral stent placement ([id number]) on 06/04/2024 at 79 Years. Cystoscopy, Right RPG, Ureteral stent exchange, Suprapubic tube exchange, Transperineal needle biopsy of prostate, Transrectal ultrasound of prostate ([id number]) on 06/01/2024 at 79 Years. Cystoscopy, Right RPG, Ureteral stent exchange, SPT exchange ([id number]) on 02/03/2024 at 78 Years. Rt Ureteral Stent Exchange ([id number]) on 06/10/2023 at 78 Years. Lt ESWL ([id number]) on 06/10/2023 at 78 Years. Cystostomy and insertion of suprapubic tube ([id number]) on 03/05/2023 at 78 Years. Cystoscopic insertion of ureteric stent ([id number]) on 12/10/2022 at 77 Years. TURP - Transurethral resection of prostate ([id number]) on 08/27/2022 at 77 Years. Transurethral insertion of prostatic urethral lift implant ([id number]) on 05/05/2022 at 77 Years. Cysto/Lt Stent Removal ([id number]) on 08/20/2012 at 67 Years. Cysto/Lt RG/ Stone Basket/Lt Stent Placement ([id number]) on 08/05/2012 at 67 Years. LT ESWL ([id number]) on 03/02/2009 at 64 Years. heel spur. Stem cell transplant ([id number]). Dental surgical procedure ([id number]). Social History Social & Psychosocial Habits Alcohol 05/16/2025 Type: Beer Frequency: 1-2 amalia (more content not included)...[facility] Comment on above:Result Comment: Electronically Signed By: Delmar Warren Jr, DO\.br\Date and Time Signed: 05/19/25 11:50 [id number] NoteProgress Note-Physician Patient: PATSY MILLS Age: 80 years Sex: Male : 1945 Associated Diagnoses: None Author: Delmar Warren Jr, DO Postoperative Information Postoperative disposition: Postoperative disposition: To PACU. Optimetrix number: Optimetrix number [id number]. Anesthetic utilized: General. Health Status Allergies: Allergic Reactions (Selected) Severe Myrbetriq- Multiple open mouth wounds. Severity Not Documented Gabapentin- Rash and unknown. Latex- Rash. Lisinopril- Cough, unknown and dry cough. Physical Examination Vital Signs 05/16/2025 15:19 EDT Heart Rate Monitored 64 bpm SpO2 98 % 05/16/2025 15:18 EDT Systolic Blood Pressure 155 mmHg HI Diastolic Blood Pressure 71 mmHg Mean Arterial Pressure, Cuff 99 mmHg 05/16/2025 15:18 EDT Respiratory Rate 16 br/min 05/16/2025 14:23 EDT Heart Rate Monitored 60 bpm SpO2 98 % 05/16/2025 14:22 EDT Respiratory Rate 16 br/min 05/16/2025 14:22 EDT Systolic Blood Pressure 124 mmHg Diastolic Blood Pressure 67 mmHg Mean Arterial Pressure, Cuff 86 mmHg 05/16/2025 14:22 EDT Temperature Temporal Artery 36.4 DegC 05/16/2025 14:17 EDT SpO2 96 % 05/16/2025 14:17 EDT Respiratory Rate Monitored 21 br/min 05/16/2025 14:17 EDT Heart Rate Monitored 67 bpm 05/16/2025 14:15 EDT Heart Rate Monitored 64 bpm 05/16/2025 14:15 EDT Respiratory Rate Monitored 8 br/min 05/16/2025 14:15 EDT SpO2 98 % 05/16/2025 14:15 EDT Systolic Blood Pressure 129 mmHg Diastolic Blood Pressure 68 mmHg Mean Arterial Pressure, Cuff 88 mmHg 05/16/2025 14:05 EDT Respiratory Rate Monitored 13 br/min 05/16/2025 14:05 EDT SpO2 97 % 05/16/2025 14:05 EDT Heart Rate Monitored 66 bpm 05/16/2025 14:05 EDT Systolic Blood Pressure 121 mmHg Diastolic Blood Pressure 65 mmHg Mean Arterial Pressure, Cuff 84 mmHg 05/16/2025 14:00 EDT Respiratory Rate Monitored 15 br/min 05/16/2025 14:00 EDT SpO2 96 % 05/16/2025 14:00 EDT Heart Rate Monitored 66 bpm 05/16/2025 14:00 EDT Systolic Blood Pressure 129 mmHg Diastolic Blood Pressure 66 mmHg Mean Arterial Pressure, Cuff 87 mmHg 05/16/2025 13:55 EDT Heart Rate Monitored 65 bpm 05/16/2025 13:55 EDT SpO2 100 % 05/16/2025 13:55 EDT Respiratory Rate Monitored 16 br/min 05/16/2025 13:55 EDT Systolic Blood Pressure 119 mmHg Diastolic Blood Pressure 67 mmHg Mean Arterial Pressure, Cuff 84 mmHg 05/16/2025 13:51 EDT Heart Rate Monitored 67 bpm 05/16/2025 13:51 EDT SpO2 100 % 05/16/2025 13:51 EDT Systolic Blood Pressure 139 mmHg Diastolic Blood Pressure 74 mmHg 05/16/2025 13:51 EDT Temperature Temporal Artery 36.5 DegC Blood Pressure Location Left arm Mean Arterial Pressure, Cuff 96 mmHg Pain Assessment: Controlled. General: Awake, Alert, Appropriate. Respiratory: Adequate air exchange. Cardiovascular: Stable, Normal peripheral perfusion. Neurological: Normal sensory function, Normal motor function. Assessment Anesthetic outcome No anesthetic complications noted. Adequate pain relief. able to void without difficulty, able to ambulate with assist, tolerating PO intake, no N/V. Review / Management Condition: Stable. Plan Transfer/Discharge: Transfer/Discharge Discharge when meets criteria ( To home ).[facility]Result Comment: Electronically Signed By: Delmar Warren Jr, DO.angel\Date and Time Signed: 05/19/25 11:50 EDT 05-16-2025 NotePatient Education - Text Cystoscopy with Stent Removal ??? Voiding after the procedure: there may be some pain, burning, urgency, frequency and blood tinged urine following the procedure. These symptoms usually resolve within 2-5 days. Drink the amount of fluid it takes to keep the urine pink to yellow or clear in color. Drinking enough water and fluids will help to ease any discomfort after your procedure. ??? If you are having problems that seem out of the ordinary, please call. ??? If unable to contact your physician and you feel it is an emergency, go to the nearest emergency room or call 911 ??? Diet ??? you may resume your normal diet. ??? Activity ??? you may resume your normal activities ??? Call if you have a fever over 100 degrees. [facility]09-09-2025 Hospital Discharge instructions Patient Education 04/25/2025 14:11:03 Percutaneous Nephrostomy [...] to your tube, one part connects to thedrainage bag, and one part is covered with a cap. The lever on the stopcock points to the part thatis closed to flow. Normally, it points to [...] or if it hurts when you push, stoppushing the flush. 6.Remove the syringe from the [...] provider. Document Revised: 02/19/2023 Document Reviewed: 02/19/2023 [employer] Patient Education 2023 [employer]. Follow Up Care 03/27/2025 15:46:33 With:Diego RICKS, OUSMANE Bell, URO Address: When: Unknown [facility] 09-09-2025 NotePatient Education Urology Percutaneous Nephrostomy Home Guide Percutaneous [...] to your tube, one part connects to thedrainage bag, and one part is covered with a cap. The lever on the stopcock points to the part thatis closed to flow. Normally, it points to [...] help keep it in place. Make sure thereis no tension on the tubing, so it [...] a second person to (more content not included)...[facility]08-28-2025 Telephone encounter Note* Telephone Encounter - Stanford Ho RN - 04/13/2025 1:09 PM EDT Nephrostomy tube teaching information sent to pt My Chart [facility]08-28-2025 Miscellaneous Notes* Telephone Encounter - Stanford Ho RN - 04/13/2025 1:09 PM EDT Nephrostomy tube teaching information sent to pt My Chart documented in [facility] encounterMem[facility] Telephone encounter Note * Telephone Encounter - Ana Marques - 04/13/2025 1:03 PM EDT Pt is due 05/25. Need qgenda schedule. [facility]08-28-2025 Miscellaneous Notes* Telephone Encounter - Ana Marques - 04/13/2025 1:03 PM EDT Pt is due 05/25. Need qgenda schedule. * Telephone Encounter - Piero Huddleston RN - 04/13/2025 12:12 PM EDT Tube Exchange Appointment Request Form Person filling out this form: Piero Huddleston RN Date: April 13, 2025 Time: 12:13 PM Patient Name: Patsy Mills Patient What type of tube is [...] information needed for schedulers?n/a documented in this encounterMem[facility] Telephone encounter Note * Telephone Encounter - Piero Huddletson RN - 04/13/2025 12:12 PM EDT Tube Exchange Appointment Request Form Person filling out this form: Piero Huddleston RN Date: April 13, 2025 Time: 12:13 PM Patient Name: Patsy Mills Patient What type of tube is [...] Any other pertinent information needed for schedulers?n/a [facility]08-20-2025 Telephone encounter Note* Telephone Encounter - Stanford Ho RN - 04/05/2025 10:45 AM EDT Spoke with Piedad and pt on the line, aware of below instructions RADIOLOGY PROCEDURE INSTRUCTIONS: You are scheduled for a Bilateral Nephrostomy tube change, on March You are to arrive at 1030 am and check in at [facility]: Radiology Outpatient Desk [id number]. You can expect to be here for 2-3 hours. Address: [place] [address] Diet: Do not eat any solid food [...] work. Stated is having lab drawn at [facility]. She will call pt Dr. Parham to add Inr and CBC to current blood work. Advised to bring in copies of lab work. Lab work needs to be drawn? Yes, labs need to be drawn at least one day prior to procedure. Please bring a copy of the results if they are not done at a [facility] facility. [employer]/Transportation: How will you be arriving for your [...] or reschedule your procedure, please call our manager hotel: [place] [place] and [place] [phone]; 8am - 4pm M-F If you have any additional questions please call: [facility] nurses desk at [phone] 8am - 4pm M-F. [facility]08-20-2025 Miscellaneous Notes* Telephone Encounter - Stanford Ho RN - 04/05/2025 10:45 AM EDT Spoke with Piedad and pt on the line, aware of below instructions RADIOLOGY PROCEDURE INSTRUCTIONS: You are scheduled for a Bilateral Nephrostomy tube change, on March You are to arrive at 1030 am and check in at [facility]: Radiology Outpatient Desk [id number]. You can expect to be here for 2-3 hours. Address: [address] [address] Diet: Do not eat any solid food [...] work. Stated is having lab drawn at [facility]. She will call pt Dr. Parham to add Inr and CBC to current blood work. Advised to bring in copies of lab work. Lab work needs to be drawn? Yes, labs need to be drawn at least one day prior to procedure. Please bring a copy of the results if they are not done at a [facility] facility. [employer]/Transportation: How will you be arriving for your [...] or reschedule your procedure, please call our manager hotel: [place] [facility] [phone]; 8am - 4pm M-F If you have any additional questions please call: [facility] nurses desk at [phone] 8am - 4pm M-F. documented in this encounterMemorial [facility] Hospital Discharge instructions Patient Education 03/27/2025 15:23:14 Percutaneous Nephrostomy Percutaneous Nephrostomy Percutaneous nephrostomy is a procedure to insert a flexible tube into the kidney. This is done to help urine leave the body when it cannot leave the kidney in the normal way. Urine is supposed to becarried from the kidneys to the bladder through narrow tubes called ureters. But a ureter can become blocked. This may be because of kidney stones, an infection, a blood clot, or an abnormal growth of cells (tumor). After the procedure, the nephrostomy tube will stay in place. Urine will drain from the kidney intoa bag outside your body. This will help relieve pressure and prevent infection that could damage the kidney. Tell a health care provider about: Any allergies you have. All medicines you are taking, including vitamins, herbs, eye drops, creams, and orin-qzr-zrdpkdz medicines. Any problems you or family members [...] These include any diabetes medicines or blood thinnersyou take. Taking medicines such as aspirin and ibuprofen. These medicines can thin your blood. Do not take them unless your health care provider tells you to. Taking wpsf-rpa-zdxjvlp medicines, vitamins, herbs, and supplements. Tests You [...] such as e-cigarettes. If you need help quitting,ask your health care provider. If you will [...] until youleave the hospital or clinic. You will be [...] provider. Document Revised: 02/19/2023 Document Reviewed: 02/19/2023 [employer] Patient Education 2023 [employer]. Follow Up Care 03/23/2025 13:18:17 With:Diego RICKS, OUSMANE Bell, URO Address: When: Unknown [facility] 08-11-2025 NotePatient Education Urology Percutaneous Nephrostomy Percutaneous nephrostomy is a procedure to insert a flexible tube into the kidney. This is done to help urine leave the body when it cannot leave the kidney in the normal way. Urine is supposed to becarried from the kidneys to the bladder through narrow tubes called ureters. But a ureter can become blocked. This may be because of kidney stones, an infection, a blood clot, or an abnormal growth of cells (tumor). After the procedure, the nephrostomy tube will stay in place. Urine will drain from the kidney intoa bag outside your body. This will help relieve pressure and prevent infection that could damage the kidney. Tell a health care provider about: ??? Any allergies you have. ??? All medicines you are taking, including vitamins, herbs, eye drops, creams, and efvw-vzv-zkehfjl medicines. ??? Any problems you or family [...] care provider tells you to. ??? Taking smlk-giv-vcgwifr medicines, vitamins, herbs, and supplements. Tests You [...] kidney. The tube may be secured to yourskin with stitches (sutures). ??? A bandage (dressing) [...] and blood oxygen level will be monitored untilyou leave the hospital or clinic. ??? You will be taught how to care for the tube and drainage bag. ??? (more content not included)...[facility]08-04-2025 Telephone encounter Note* Telephone Encounter - Jesus Clement RN - 03/20/2025 11:08 AM EDT SERVICE DATE: March 20, 2025 SERVICE TIME: [...] hours please call or and ask the stacker and sorter operator to page the interventional residential instructor salon designer. 5) To change or schedule an appointment with interventional radiology please call scheduling at . Instructions for My Care at Home or Healthcare Facility Additional Health Information I Need to Know After I Leave thespital:Symptoms of an Infection to Watch for Include: [...] for nephrostomy tube care instructions and demonstrations. [email or web address] Activity and Exercise: (When I can drive, [...] please call Interventional Radiology nurse triage line [phone], Thursday - Thursday 9 a.m. - 4 p.m. After hours please call and ask for Interventional Radiology Fellow salon designer, pager [phone]. In the event of acute symptoms report directly to local emergency department and notify the Department of Intervention Radiology after the fact. IR will contact you and schedule for follow up appointment will be set up for routine exchange in 4weeks All questions and concerns were addressed. I spent 20 minutes on the above conversation with the patient. [facility]08-04-2025 Miscellaneous Notes* Telephone Encounter - Jesus Clement RN - 03/20/2025 11:08 AM EDT SERVICE DATE: March 20, 2025 SERVICE TIME: [...] hours please call or and ask the stacker and sorter operator to page the interventional residential instructor salon designer. 5) To change or schedule an appointment [...] for nephrostomy tube care instructions and demonstrations. [email or web address] Activity and Exercise: (When I can drive, [...] please call Interventional Radiology nurse triage line [phone], Thursday - Thursday 9 a.m. - 4 p.m. After hours please call and ask for Interventional Radiology Fellow salon designer, pager [phone]. In the event of acute symptoms report directly to local emergency department and notify the Department of Intervention Radiology after the fact. IR will contact you and schedule for follow up appointment will be set up for routine exchange in 4weeks All questions and concerns were addressed. I spent 20 minutes on the above conversation with the patient. documented in this encounterMemorial [facility]07-[facility]-2025 NoteHNO ID: [id number] Author: DAX FORBES MD Service: Interventional Radiology Author Type: Physician Type: Procedures Filed: 03/16/2025 11:37 Note Text: BRIEF OPERATIVE / PROCEDURE NOTE LOG ID: [id number] SURGERY/PROCEDURE DATE: 03/16/2025 INCISION/PROCEDURE START TIME: 9:45 AM INCISION CLOSE/PROCEDURE END TIME: 11:26 AM SURGEON(S)/PROCEDURALIST(S) AND DIRECTOR APPOINTMENT(S): Surgeons and Role: * Dax Forbes MD - Primary No Additional Staff SURGERY/PROCEDURE(S): Bilateral PCN placement ANESTHESIA: Procedural Sedation FINDINGS: Successful bilateral 10 Australian PCN (left DM and right BS) placement via inferior pole calyces. US pre-procedure showed moderate hydronephrosis on the left, but no hydronephrosis on the right. Shoe Salesman showed indwelling bilateral double J stents and [...] SIGNATURE: Dax Forbes MD PATIENT NAME: Patsy Mills DATE: March 16, 2025 TIME: 11:[address] [id number] Telephone encounter Note* Telephone Encounter - Zohra Marcano RN - 03/16/2025 11:27 AM EDT Tube Exchange Appointment Request Form Person filling out this form: Zohra Marcano RN Date: March 16, 2025 Time: 11:27 AM Patient Name: Patsy Mills Patient What type of tube is [...] Any other pertinent information needed for schedulers?bilateral [facility]07-31-2025 Miscellaneous Notes* Telephone Encounter - Zohra Marcano RN - 03/16/2025 11:27 AM EDT Tube Exchange Appointment Request Form Person filling out this form: Zohra Marcano RN Date: March 16, 2025 Time: 11:27 AM Patient Name: Patsy Mills Patient What type of tube is [...] information needed for schedulers?bilateral documented in [facility] encounter[facility] Telephone encounter Note * Telephone Encounter - Marisol Ventura RN - 03/08/2025 10:10 AM EDT Spoke with aPtsy Herbert's that appointment is for ThursdayMarch 16 RADIOLOGY PROCEDURE INSTRUCTIONS: You are scheduled for a Nephrostomy Tube Placement, on February You are to arrive at 07:30 am and check in at [facility]: Radiology Outpatient Desk [id number]. You can expect to be here for 6-8 hours. Address: [place] [address] Diet: Do not eat any solid food [...] Lab work needs to be drawn? No. Assembler Metal Building/Transportation: How will you be arriving for your [...] or reschedule your procedure, please call our manager hotel: Teo Johansen [phone]; 8am - 4pm M-F If you have any additional questions please call: [facility] nurses desk at [phone] 8am - 4pm M-F. Option 1 [facility]07-23-2025 Miscellaneous Notes* Telephone Encounter - Marisol Ventura RN - 03/08/2025 10:10 AM EDT Spoke with Patsy Herbert's that appointment is for ThursdayMarch 16 RADIOLOGY PROCEDURE INSTRUCTIONS: You are scheduled for a Nephrostomy Tube Placement, on February You are to arrive at 07:30 am and check in at [facility]: Radiology Outpatient Desk [id number]. You can expect to be here for 6-8 hours. Address: [address] [address] Diet: Do not eat any solid food [...] Lab work needs to be drawn? No. Assembler Metal Building/Transportation: How will you be arriving for your [...] or reschedule your procedure, please call our manager hotel: Aleisha Johansen and [place] [phone]; 8am - 4pm M-F If you have any additional questions please call: [facility] nurses desk at [phone] 8am - 4pm M-F. Option 1 documented in this encounterMem[facility] NotePatient Education - Text Gunn Catheter Care, Male A Gunn catheter is a soft, flexible tube that is placed into the bladder to drain urine. The catheter has a balloon to hold it inside the bladder. A Gunn catheter may be inserted if: ??? You [...] catheter because this could sweep bacteria up intothe urethra and cause infection. ??? Remove all [...] cotton underwear to absorb moisture and keep skin specialist. 6. Keep the drainage bag below the [...] leg strap. Avoid attaching the new bag tootightly. 7. Place a cap on the drainage [...] Care After The follo (more content not included)...[facility]07-11-2025 Telephone encounter Note* Telephone Encounter - Bibiana Masters - 02/24/2025 1:54 PM EDTSummary: neph tube placement Order scanned in Waiting for previous imaging [facility]07-11-2025 Miscellaneous Notes* Telephone Encounter - Bibiana Masters - 02/24/2025 1:54 PM EDTSummary: neph tube placement Order scanned in Waiting for previous imaging documented in this encounterMemorial [facility] Hospital Discharge instructions Patient Education 02/23/2025 13:24:17 Percutaneous Nephrostomy Percutaneous Nephrostomy Percutaneous nephrostomy is a procedure to insert a flexible tube into the kidney. This is done to help urine leave the body when it cannot leave the kidney in the normal way. Urine is supposed to becarried from the kidneys to the bladder through narrow tubes called ureters. But a ureter can become blocked. This may be because of kidney stones, an infection, a blood clot, or an abnormal growth of cells (tumor). After the procedure, the nephrostomy tube will stay in place. Urine will drain from the kidney intoa bag outside your body. This will help relieve pressure and prevent infection that could damage the kidney. Tell a health care provider about: Any allergies you have. All medicines you are taking, including vitamins, herbs, eye drops, creams, and nihv-wts-zfadxgh medicines. Any problems you or family members [...] These include any diabetes medicines or blood thinnersyou take. Taking medicines such as aspirin and ibuprofen. These medicines can thin your blood. Do not take them unless your health care provider tells you to. Taking cpua-plo-clmiupv medicines, vitamins, herbs, and supplements. Tests You [...] such as e-cigarettes. If you need help quitting,ask your health care provider. If you will [...] until youleave the hospital or clinic. You will be [...] provider. Document Revised: 02/19/2023 Document Reviewed: 02/19/2023 [employer] Patient Education 2023 [employer]. Follow Up Care 11/17/2024 15:35:53 With:Diego RICKS, OUSMANE Bell, URO Address: When: Unknown [facility] 07-10-2025 NotePatient Education Urology Percutaneous Nephrostomy Percutaneous nephrostomy is a procedure to insert a flexible tube into the kidney. This is done to help urine leave the body when it cannot leave the kidney in the normal way. Urine is supposed to becarried from the kidneys to the bladder through narrow tubes called ureters. But a ureter can become blocked. This may be because of kidney stones, an infection, a blood clot, or an abnormal growth of cells (tumor). After the procedure, the nephrostomy tube will stay in place. Urine will drain from the kidney intoa bag outside your body. This will help relieve pressure and prevent infection that could damage the kidney. Tell a health care provider about: ??? Any allergies you have. ??? All medicines you are taking, including vitamins, herbs, eye drops, creams, and cqfe-bmf-fxrcffl medicines. ??? Any problems you or family [...] care provider tells you to. ??? Taking wojt-mci-csjklkm medicines, vitamins, herbs, and supplements. Tests You [...] kidney. The tube may be secured to yourskin with stitches (sutures). ??? A bandage (dressing) [...] and blood oxygen level will be monitored untilyou leave the hospital or clinic. ??? You will be taught how to care for the tube and drainage bag. ??? (more content not included)...[facility]06-25-2025 Evaluation note* Diagnosis Onset Date Resolution Status Admit Date Anemia of chronic renal failure, stage 3 (moderate) acuteJune 2024 1:54pmComplicated urinary tract infectionacuteJune 2024 1:71xqT28 deficiencychronicCaromont [facility]2024 1:54pmEncounter for coordination of complex carechronicJun2024 1:54pmHistory of hemodialysischronicJun2024 1:54pmLight chain nephropathy due to multiple myelomachronicJun2024 1:54pmSteroid-induced diabetes mellituschronicJun2024 1:54pm B12 deficiencychronicAugust 2024 1:24pmChemotherapy-induced peripheral neuropathychronicAugu2024 1:24pmEncounter for chemotherapy management chronicAugust 2024 1:24pmEncounter for coordination of complex carechronic April 05, 2025 1:24pmHistory of anemia due to vitamin B12 deficiencychronic April 05, 2025 1:24pmHistory of hemodialysischronicAugust 2024 1:24pm Iron deficiency anemiachronicAugu2024 1:24pmLight chain nephropathy due to multiple myelomachronicAugu2024 1:24pmRash and nonspecific skin eruptionchronicAugu2024 1:24pmSteroid-induced diabetes mellituschronic April 05, 2025 1:24pmSuperficial thrombophlebitis of left upper extremity chronicAugust 2024 1:24pmUrinary incontinencechronicA2024 1:24pmAcute renal failure on dialysisresolvedAugust 2024 1:24pmAnemia of renal diseaseinactiveAugus2024 1:24pm [facility] Work Phone: 1(692) 165-426706-25-2025 Evaluation note* Diagnosis Onset Date Resolution Status Admit Date Anemia of chronic renal failure, stage 3 (moderate) acuteJune 2024 1:54pmComplicated urinary tract infectionacuteJun2024 1:12egE09 deficiencychronicCaromont [facility] Medical Center2024 1:54pmEncounter for coordination of complex carechronicCaromont [facility] Medical Center2024 1:54pmHistory of hemodialysischronicJun2024 1:54pmLight chain nephropathy due to multiple myelomachronicJun2024 1:54pmSteroid-induced diabetes mellituschronicJun2024 1:54pm B12 deficiencychronicA2024 1:24pmChemotherapy-induced peripheral neuropathychronicA2024 1:24pmEncounter for chemotherapy management chronicgust 2024 1:24pmEncounter for coordination of complex carechronic April 05, 2025 1:24pmHistory of anemia due to vitamin B12 deficiencychronic April 05, 2025 1:24pmHistory of hemodialysischronicAugu2024 1:24pm Iron deficiency anemiachronicAugu2024 1:24pmLight chain nephropathy due to multiple myelomachronicAugu2024 1:24pmRash and nonspecific skin eruptionchronicA2024 1:24pmSteroid-induced diabetes mellituschronic April 05, 2025 1:24pmSuperficial thrombophlebitis of left upper extremity chronicAugust 2024 1:24pmUrinary incontinencechronicAugust 2024 1:24pmAcute renal failure on dialysisresolvedAugust 2024 1:24pmAnemia of renal diseaseinactiveAugust 2024 1:24pmAnemia of chronic renal failure, stage 4 (severe)acuteSeptember 2024 3:15pmCKD (chronic kidney disease) stage 4, GFR 15-29 ml/minacuteSept2024 3:15pmDiabetes 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acuteSept2024 3:15pmHypophosphatemiaacuteSept2024 3:15pmHistory of anemia due to vitamin B12 deficiencychronicSept2024 3: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 Tpvf-aqz-yqwfmvl medicines to treat discomfort. Drinking enough water [...] Follow these instructions at home: Medicines Take kejl-tpv-kwkbozr and prescription medicines only as told by [...] provider. Document Revised: 03/10/2021 Document Reviewed: 03/15/2021 [employer] Patient Education 2023 [employer]. Follow Up Care 12/21/2024 11:48:13 With:Pratima Reno PA-C, URL Address: When: Unknown Comments:RTC in 3 weeks for cath change [facility] 05-28-2025 NotePatient Education Obstetrics and Gynecology Urinary [...] this condition includes: ??? Antibiotic medicine. ??? Cvrx-bpl-nkphvmx medicines to treat discomfort. ??? Drinking enough [...] these instructions at home: Medicines ??? Take dakg-chg-wvpzocj and prescription medicines only as told by [...] Make sure you di (more content not included)...[facility]05-20-2025 Evaluation note* Diagnosis Onset Date Resolution Status Admit Date Anemia of chronic renal failure, stage 4 (severe) acuteMay 2024 2:39pmDiabetes 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acuteMay 2024 2:39pmHypophosphatemiaacuteMay 2024 2:39pmHistory of anemia due to vitamin B12 deficiencychronicMa2024 2:39pmLight chain nephropathy due to multiple myelomachronicMay 2024 2:39pmHyperkalemiainactiveMay 2024 2:39pmStage 3b chronic kidney disease (CKD)deletedMa2024 2:39pmAnemia of chronic renal failure, stage 4 (severe)acuteJune 2024 1:22shJ44 deficiencychronicJun2024 1:54pmEncounter for coordination of complex carechronicJune 2024 1:54pmHistory of hemodialysischronicJune 2024 1:54pmLight chain nephropathy due to multiple myelomachronicJun2024 1:54pmSteroid-induced diabetes mellituschronicJun2024 1:71ujN95 deficiencychronicJune 2024 2:04pmChemotherapy-induced peripheral neuropathychronicJun2024 2:04pmEncounter for chemotherapy management chronicCaromont [facility] Medical Center2024 2:04pmEncounter for coordination of complex carechronic Cindy 2024 2:04pmHistory of anemia due to vitamin B12 deficiencychronicJune 2024 2:04pmHistory of hemodialysischronicJune 2024 2:04pmIron deficiency anemiachronicJune 2024 2:04pmLight chain nephropathy due to multiple myelomachronicJun2024 2:04pmRash and nonspecific skin eruption chronicJune 2024 2:04pmSteroid-induced diabetes mellituschronicJun2024 2:04pmSuperficial thrombophlebitis of left upper extremitychronicJune 2024 2:04pmUrinary incontinencechronicJune 2024 2:04pmAcute renal failure on dialysisresolvedJune 2024 2:04pmAnemia of renal diseaseinactiveJune 2024 2:04pm [facility] Work Phone: 1(479) 328-277505-07-2025 NotePatient Education Obstetrics and Gynecology Urinary Tract [...] this condition includes: ??? Antibiotic medicine. ??? Iovq-doq-ytgcosv medicines to treat discomfort. ??? Drinking enough [...] these instructions at home: Medicines ??? Take rilz-viz-nlewhvh and prescription medicines only as told by [...] Make sure you di (more content not included)...[facility]04-03-2025 NotePatient Education Urology Suprapubic Catheter Replacement [...] and water are not available, use hand backend java developer. ??? Disconnect the bag from the catheter and immediately attach a new bag to the catheter. ??? Empty the used bag completely. ??? Clean the used bag according to the commodity specialist's instructions, or as told by your provider. ??? Let the bag dry completely, and put it in a clean plastic bag before storing it. General instructions ??? Always wash your hands before and after caring for your catheter and collection bag. Use soap and water. If soap and water are not available, use hand backend java developer. ??? Always make sure there are no [...] ??? You have bloo (more content not included)...[facility] 10-04-2024 Evaluation note* Diagnosis Onset Date Resolution Status Admit Date Anemia of chronic renal failure, stage 4 (severe) acuteFebruary 2024 3:21pmDiabetes 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acuteFebruary 2024 3:21pmHypophosphatemiaacuteFebruary 2024 3:21pmHistory of anemia due to vitamin B12 deficiencychronicFebruary 2024 3:21pmLight chain nephropathy due to multiple myelomachronicFebruary 2024 3:21pm HyperkalemiainactiveFebruary 2024 3:21pmStage 3b chronic kidney disease (CKD)deletedFebruary 2024 3:21pmAnemia of chronic renal failure, stage 4 (severe)acuteFebruary 2024 12:46zrG35 deficiencychronicFebruary 2024 12:57pmEncounter for coordination of complex carechronicbruary 2024 12:57pmHistory of hemodialysischronicFebruary 2024 12:57pmLight chain nephropathy due to multiple myelomachronicFebruary 2024 12:57pmSteroid- induced diabetes mellituschronicFebruary 2024 12:20wbV10 deficiencychronic October 06, 2024 1:24pmChemotherapy-induced peripheral neuropathychronic October 06, 2024 1:24pmEncounter for chemotherapy managementchronicbruary 2024 1:24pmEncounter for coordination of complex carechronicbruary 2024 1:24pmHistory of anemia due to vitamin B12 deficiencychronicFebruary 2024 1:24pmHistory of hemodialysischronicFebruary 2024 1:24pmIron deficiency anemiachronicbruary 2024 1:24pmLight chain nephropathy due to multiple myelomachronicbruary 2024 1:24pmRash and nonspecific skin eruptionchronicbruary 2024 1:24pmSteroid-induced diabetes mellitus chronicFebruary 2024 1:24pmSuperficial thrombophlebitis of left upper extremitychronicbruary 2024 1:24pmUrinary incontinencechronicbruary 2024 1:24pmAcute renal failure on dialysisresolvedFebruary 2024 1:24pmAnemia of renal diseaseinactivebruary 2024 1:24pm [facility] Work Phone: 1(396) 643-918502-18-2025 Evaluation note* Diagnosis Onset Date Resolution Status Admit Date Anemia of chronic renal failure, stage 4 (severe) acutebruary 2024 3:21pmDiabetes 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acuteFebruary 2024 3:21pmHypophosphatemiaacutebruary 2024 3:21pmHistory of anemia due to vitamin B12 deficiencychronicbruary 2024 3:21pmLight chain nephropathy due to multiple myelomachronicbruary 2024 3:21pm Hyperkalemiainactivebruary 2024 3:21pmStage 3b chronic kidney disease (CKD)deletedFebruary 2024 3:21pmAnemia of chronic renal failure, stage 4 (severe)acuteFebruary 2024 12:58hhN27 deficiencychronicbruary 2024 12:57pmEncounter for coordination of complex carechronicSierra Vista Regional [facility] Centeruary 2024 12:57pmHistory of hemodialysischronicbruary 2024 12:57pmLight chain nephropathy due to multiple myelomachronicFebruary 2024 12:57pmSteroid- induced diabetes mellituschronicFeuary 2024 12:24gjW05 deficiencychronic [facility] 2024 11:25amChemotherapy-induced peripheral neuropathychronCumberland [facility] 2024 11:25amEncounter for chemotherapy managementchronC[facility] 2024 11:25amEncounter for coordination of complex carechronC[facility] 2024 11:25am History of anemia due to vitamin B12 deficiencychronC[facility] 2024 11:25am History of hemodialysischronC[facility] 2024 11:25amIron deficiency anemia chronicV[facility] 20[facility] 11:25am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Select [facility] 20[facility] 11:25amRash and nonspecific skin eruptionchronicSelect [facility] 2024 11:25amSteroid-induced diabetes mellituschronicSelect [facility] 2024 11:25amSuperficial thrombophlebitis of left upper extremitychronicSelect [facility] 2024 11:25amUrinary incontinencechronicSelect [facility] 2024 11:25amAcute renal failure on dialysisresolvedMar 2024 11:25amAnemia of renal disease inactiveMarch 2024 11:25am [facility] Work Phone: 1(589) 370-580302-18-2025 Evaluation note* Diagnosis Onset Date Resolution Status Admit Date Anemia of chronic renal failure, stage 4 (severe) acuteFebruary 2024 3:21pmDiabetes 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acuteFebruary 2024 3:21pmHypophosphatemiaacuteFebruary 2024 3:21pmHistory of anemia due to vitamin B12 deficiencychronicbruary 2024 3:21pmLight chain nephropathy due to multiple myelomachronicFebruary 2024 3:21pm HyperkalemiainactiveFebruary 2024 3:21pmStage 3b chronic kidney disease (CKD)deletedFebruary 2024 3:21pmAnemia of chronic renal failure, stage 4 (severe)acuteFebruary 2024 12:22pvL13 deficiencychronicFebruary 2024 12:57pmEncounter for coordination of complex carechronicFebruary 2024 12:57pmHistory of hemodialysischronicFebruary 2024 12:57pmLight chain nephropathy due to multiple myelomachronicFebruary 2024 12:57pmSteroid- induced diabetes mellituschronicFebruary 2024 12:11fiB55 deficiencychronic Zabrina 2024 11:25amChemotherapy-induced peripheral neuropathychronicApril 2024 11:25amEncounter for chemotherapy managementchronicApril 2024 11:25amEncounter for coordination of complex carechronicApril 2024 11:25am History of anemia due to vitamin B12 deficiencychronicApril 2024 11:25am History of hemodialysischronicApril 2024 11:25amIron deficiency anemia chronicApril 2024 11:25am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April 2024 11:25amRash and nonspecific skin eruptionchronicApril 2024 11:25amSteroid-induced diabetes mellituschronicApril 2024 11:25amSuperficial thrombophlebitis of left upper extremitychronicApril 2024 11:25amUrinary incontinencechronicApril 2024 11:25amAcute renal failure on dialysisresolvedApril 2024 11:25amAnemia of renal disease inactiveApril 2024 11:25am [facility] Work Phone: 1(999) 260-815302-17-2025 NotePatient Education Obstetrics and Gynecology Urinary Tract [...] this condition includes: ??? Antibiotic medicine. ??? Wboz-qcs-ybxqbdc medicines to treat discomfort. ??? Drinking enough [...] these instructions at home: Medicines ??? Take ouey-ozd-yakpjig and prescription medicines only as told by [...] Make sure you di (more content not included)...[facility]01-23-2025 Hospital Discharge instructions Patient Education 09/08/2024 [...] provider. Document Revised: 03/03/2023 Document Reviewed: 03/03/2023 [employer] Patient Education 2023 [employer]. 09/08/2024 15:50:32 Urinary Tract Infection, Adult Urinary [...] Treatment for this condition includes: Antibiotic medicine. Iplv-qlr-zkmdpei medicines to treat discomfort. Drinking enough water [...] Follow these instructions at home: Medicines Take dvvp-utu-irbfzdb and prescription medicines only as told by [...] provider. Document Revised: 03/10/2021 Document Reviewed: 03/15/2021 [employer] Patient Education 2023 [employer]. Follow Up Care 08/16/2024 12:31:05 With:CARLEY Damian APRN, CARIDAD Forte, URL Address: When: Unknown Comments:3 wk cath change [facility] 01-23-2025 NotePatient Education Caregiving Antibiotic Medicine, Adult [...] ??? You have sig (more content not included)...[facility] 08-31-2024 Hospital Discharge instructions Patient Education [...] or mouth. Supplies needed: Soap. Alcohol-based hand backend java developer. Standard cleaning products. Disinfectants, such as bleach. [...] water are not available, use alcohol-based hand backend java developer. Avoid touching your face, mouth, nose, or [...] water. Air-dry your dishes or use a tobacco drier operator. Do not share dishes or eating utensils. [...] certain germs and not others. Read the commodity specialist's instructions or read online resources to determine [...] minutes after each use, or according to commodity specialist's instructions. Wash reusable cleaning cloths and sanitize [...] water are not available, use alcohol-based hand backend java developer. In general: Stay home except to get [...] provider. Document Revised: 09/22/2022 Document Reviewed: 09/22/2022 [employer] Patient Education 2023 [employer]. Follow Up Care 08/09/2024 11:50:25 With:Diego RICKS, OUSMANE Bell, URO Address: When: Unknown Comments:Schedule BL stent exchange in 3 mos [facility] 01-15-2025 NotePatient Education Infectious Disease Infection Prevention [...] Supplies needed: ??? Soap. ??? Alcohol-based hand backend java developer. ??? Standard cleaning products. ??? Disinfectants, such [...] water are not available, use alcohol-based hand backend java developer. ??? Avoid touching your face, mouth, nose, [...] water. Air-dry your dishes or use a tobacco drier operator. ??? Do not share dishes or eating [...] certain germs and not others. Read the commodity specialist's instructions or read online resources to determine if the product you are using will work for the germ you are trying to remove. ??? If you choose to use bleach, use it safely. Never mix it with other cleaning products, especially those that contain ammonia. This mixture can create a dangerous gas that may be deadly. ??? Keep proper (more content not included)...[facility] 08-18-2024 NotePatient Education Caregiving Antibiotic Medicine, [...] ??? You have sig (more content not included)...[facility] 08-03-2024 Evaluation note* Diagnosis Onset Date Resolution Status Admit Date Anemia of chronic renal failure, stage 4 (severe) acuteDecember 2023 3:32pmDiabetes 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acuteDecember 2023 3:32pmHypophosphatemiaacuteDecember 2023 3:32pmHistory of anemia due to vitamin B12 deficiencychronicDecember 2023 3:32pmLight chain nephropathy due to multiple myelomachronicDeceer 2023 3:32pm HyperkalemiainactiveDecember 2023 3:32pmStage 3b chronic kidney disease (CKD)deletedAugust 03, 2024 3:24dpS62 deficiencychronicFebruary 2024 12:16pmChemotherapy-induced peripheral neuropathychronicFebruary 2024 12:16pmEncounter for chemotherapy managementchronicFebruary 2024 12:16pm Encounter for coordination of complex carechronP[facility]bruary 2024 12:16pm History of anemia due to vitamin B12 deficiencychronicFebruary 2024 12:16pmHistory of hemodialysischronicFebruary 2024 12:16pmIron deficiency anemiachronicFebruary 2024 12:16pmLight chain nephropathy due to multiple myelomachronicFebruary 2024 12:16pmRash and nonspecific skin eruption chronicFebruary 2024 12:16pmSteroid-induced diabetes mellituschronic September 27, 2024 12:16pmSuperficial thrombophlebitis of left upper extremity chronicFebruary 2024 12:16pmUrinary incontinencechronicFebruary 2024 12:16pmAcute renal failure on dialysisresolvedFebruary 2024 12:16pmAnemia of renal diseaseinactivebruary 2024 12:16pm [facility] Work Phone: 1(503) 962-148412-18-2024 Evaluation note* Diagnosis Onset Date Resolution Status Admit Date Anemia of chronic renal failure, stage 4 (severe) acuteDecember 2023 3:32pmDiabetes 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acuteDecember 2023 3:32pmHypophosphatemiaacuteDeceer 2023 3:32pmHistory of anemia due to vitamin B12 deficiencychronicceer 2023 3: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[facility]er 2023 3:32pm HyperkalemiainactiveDeceer 2023 3:32pmStage 3b chronic kidney disease (CKD)deletedAugust 03, 2024 3:76piL41 deficiencychronicFebruary 2024 12:16pmChemotherapy-induced peripheral neuropathychronicFebruary 2024 12:16pmEncounter for chemotherapy managementchronicFebruary 2024 12:16pm Encounter for coordination of complex carechronM[facility] 12:16pm History of anemia due to vitamin B12 deficiencychronicFebruary 2024 12:16pmHistory of hemodialysischronicFebruary 2024 12:16pmIron deficiency anemiachronicFebruary 2024 12:16pmLight chain nephropathy due to multiple myelomachronicFebruary 2024 12:16pmRash and nonspecific skin eruption chronicFebruary 2024 12:16pmSteroid-induced diabetes mellituschronic September 27, 2024 12:16pmSuperficial thrombophlebitis of left upper extremity chronicFebruary 2024 12:16pmUrinary incontinencechronicFebruary 2024 12:16pmAcute renal failure on dialysisresolvedFebruary 2024 12:16pmAnemia of renal diseaseinactiveFebruary 2024 12:16pmAnemia of chronic renal failure, stage 4 (severe)acuteFebruary 2024 3:21pmDiabetes 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acuteFebruary 2024 3:21pmHypophosphatemiaacuteFebruary 2024 3:21pmHistory of anemia due to vitamin B12 deficiencychronicFebruary 2024 3:21pmLight chain nephropathy due to multiple myelomachronicFebruary 2024 3:21pmHyperkalemiainactiveFebruary 2024 3:21pmStage 3b chronic kidney disease (CKD)deletedFebruary 2024 3:21pm [facility] Work Phone: 1(900) 911-767512-18-2024 Evaluation note* Diagnosis Onset Date Resolution Status Admit Date Anemia of chronic renal failure, stage 4 (severe) acuteDemunson healthcare [facility] memorial hospitaler 2023 3:32pmDiabetes 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acuteDecember 2023 3:32pmHypophosphatemiaacuteDecember 2023 3:32pmHistory of anemia due to vitamin B12 deficiencychronicDecember 2023 3:32pmLight chain nephropathy due to multiple myelomachronicDecember 2023 3:32pm HyperkalemiainactiveDecember 2023 3:32pmStage 3b chronic kidney disease (CKD)deletedDecember 2023 3:32pmAnemia of chronic renal failure, stage 4 (severe)acuteFebruary 2024 3:21pmDiabetes 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acute October 04, 2024 3:21pmHypophosphatemiaacuteFebruary 2024 3:21pmHistory of anemia due to vitamin B12 deficiencychronicFebruary 2024 3:21pmLight chain nephropathy due to multiple myelomachronicFebruary 2024 3:21pm HyperkalemiainactiveFebruary 2024 3:21pmStage 3b chronic kidney disease (CKD)deletedFebruary 2024 3:21pmAnemia of chronic renal failure, stage 4 (severe)acuteFebruary 2024 12:23tgM43 deficiencychronicFebruary 2024 12:57pmEncounter for coordination of complex carechronicFebruary 2024 12:57pmHistory of hemodialysischronicFebruary 2024 12:57pmLight chain nephropathy due to multiple myelomachronicFebruary 2024 12:57pmSteroid- induced diabetes mellituschronicFebruary 2024 12:54sdM05 deficiencychronic October 06, 2024 1:24pmChemotherapy-induced peripheral neuropathychronic October 06, 2024 1:24pmEncounter for chemotherapy managementchronicFebruary 2024 1:24pmEncounter for coordination of complex carechronicFebruary 2024 1:24pmHistory of anemia due to vitamin B12 deficiencychronicFebruary 2024 1:24pmHistory of hemodialysischronicFebruary 2024 1:24pmIron deficiency anemiachronicFebruary 2024 1:24pmLight chain nephropathy due to multiple myelomachronicFebruary 2024 1:24pmRash and nonspecific skin eruptionchronicFebruary 2024 1:24pmSteroid-induced diabetes mellitus chronicFebruary 2024 1:24pmSuperficial thrombophlebitis of left upper extremitychronicFebruary 2024 1:24pmUrinary incontinencechronicFebruary 2024 1:24pmAcute renal failure on dialysisresolvedFebruary 2024 1:24pmAnemia of renal diseaseinactiveFebruary 2024 1:24pm [facility] Work Phone: 1(651) 516-205912-14-2024 NoteHospital Medicine Discharge Summary Final Discharge Diagnosis: Acute kidney injury superimposed on CKD (CMS/HCC) Complicated UTI Hydronephrosis status post stent exchange on 1211 On mornin chronic urinary retention status post suprapubic catheter History of multiple myeloma anemia of chronic disease Admission Diagnosis: Acute kidney injury superimposed on CKD (CMS/HCC) [N17.9, N18.9] Hospital course: Patsy Mills is an 79 y.o. male with a history of hydronephrosis requiring ureteral stents and a chronic suprapubic catheter who came from [facility] as a transfer requiring higher level [...] placement for which initiation was transferred to [facility]. Patient's potassium has remained stable [...] Complicated UTI with sepsis - spoke with [facility] blood cultures NGTD. Urine culture was mixed cecil. Did speak with them again also on 07/27 and faxed report and again mixed cecil - on admission urology recommended a total of 14 days of abx that also included his abx at [facility]. - patient has been on rocephin here [...] stent exchange 07/28 - per urology Franklyn Manley MD at 07/29/2024 3:55 PM patient has [...] marrow transplantation/chemotherapy History of prostate CA - [place] 6 prostate cancer under active surveillance DMII [...] you take these medicati (more content not included)...[facility]12-13-2024 NoteHospital Medicine Daily Progress Note - 07/29/2024 1:31 PM; Room: [address] [place] [address] Admission: 07/24/2024 4:16 PM; Length of stay: 5 days THE HOSPITALIST TEAM PREFERS TO USE 88tc88 FOR NON-URGENT COMMUNICATION 7AM-7PM. IF I DO NOT RESPOND WITHIN 20 MINUTES OR URGENT MATTERS, PLEASE CALL THROUGH THE OXYGEN THERAPY TEACHER. FROM 7PM-7AM, PLEASE PAGE [phone](COVR). Code Status: Full Code Barriers to Discharge: OK by neph and urology Expected Discharge Date: 07/30 Discharge Destination: home Overview Patsy Mills is an 79 y.o. male with a history of hydronephrosis requiring ureteral stents and a chronic suprapubic catheter who came from [facility] as a transfer requiring higher level [...] placement for which initiation was transferred to [facility]. Patient's potassium has remained stable [...] flat. Palpations: Abdomen is soft. Genitourinary: Comments: Gunn - clear, yellow urine Musculoskeletal: General: Normal [...] Problem: Acute kidney injury superimposed on CKD ([facility]) Active Problems: Hydronephrosis Pyelonephritis Macrocytic anemia Assessment and Plan Acute renal failure on CKD 3b secondary to urinary obstruction - nephrology and urology consulted - Baseline Cr is 2 - 2.5 - Cr today is 3.07 - monitor daily BMP - s/p bilateral stent exchange 07/28 Complicated UTI with sepsis - spoke with [facility] blood cultures NGTD. Urine culture was mixed cecil. Did speak with them again also on 07/27 and faxed report and again mixed cecil - on admission urology recommended a total of 14 days of abx that also included his abx at [facility]. - patient has been on rocephin here [...] stent exchange 07/28 - per urology Franklyn Manley MD at 07/29/2024 3:55 PM p (more content not included)...[facility]12-13-2024 NoteNephrology Progress Note Patient : Patsy Mills; 79 y.o. Location: [address] [place] [address]- Attending: Cris Devries DO Admit Date: 07/24/2024 Hospital Day: 5 Reason for Consult: RINA on CKD3b, appreciate recommendations regarding initiation of hemodialysis. Subjective: History of present illness: Patsy Mills is a 79 y.o. male with a history of hydronephrosis requiring ureteral stents and a chronic suprapubic catheter who came from [facility] as a transfer requiring higher level [...] placement for which initiation was transferred to [facility]. Patient's potassium has remained stable [...] Dose Status acetaminophen (Tylenol) 500 mg tablet [id number] Take 650 mg by mouth every 6 (six) hours if needed for mild pain (1-3 pain score). Historical ProviderMD Active aspirin 81 mg EC tablet [id number] Take 81 mg by mouth in the morning. Historical ProviderMD Active atorvastatin (Lipitor) 20 mg tablet [id number] Take 20 mg by mouth in the evening. Historical ProviderMD Active cholecalciferol (Vitamin D3) 50 MCG (1999 UT) tablet [id number] Take 2,000 Units by mouth. Historical ProviderMD Active cyanocobalamin (Vitamin B-12) 1,000 mcg tablet [id number] Take 1,000 mcg by mouth in the morning. Historical ProviderMD Active darbepoetin raymond (Aranesp, in polysorbate,) syringe [id number] Inject 10 mcg under the skin if needed (every other week as needed for hgb <10). Historical Provider, Active docusate sodium (Colace) 50 mg capsule [id number] Take 50 mg by mouth in the morning. Historical Provider, Active famotidine (Pepcid) 20 mg (more content not included)...[facility]12-13-2024 NoteOccupational Therapy Name: Patsy Mills Date of : 1945 Today's Date: 07/29/24 Pt is unable to be seen for therapy at this time secondary to database report writer provided maximum encouragement for OOBA and pt reports, I still haven't eaten an I am in pain. K9 Handler explains benefits of activity promotion to improve activity tolerance, decreased weakness and to prevent blood clots. Pt verbalizes understanding but continues to defer therapy. . Will check back and complete therapy session as appropriate. Check No Charge Time attempted: AUniversOhio State University [facility]12-13-2024 Note Attestation signed by Franklyn Manley MD at 07/29/2024 3:55 PM I personally [...] Barton MD, , Compa Barrios MD, Franklyn Manley MD, Ramesh Soto MD Urology - Progress [...] 2303 152/85 -- Temporal 87 23 -- 07/28/248 169/68 36.4 ???C (97.5 ???F) Oral 69 [...] per primary Guicho Alejandro MD Urology Resident, PGY-2UnSumma Health [facility]12-12-2024 Note Patient: Patsy Milsl Procedure Summary Date: 07/28/24 Room / Location: [facility] OPERATING ROOM 07 / [facility] Operating Room Anesthesia Start: 1757 Anesthesia Stop: 1848 Procedures: CYSTOURETEROSCOPY, WITH BILATERAL STENT EXCHANGE; SUPRAPUBIC CATHETER EXCHANGE (Bilateral) URETEROSCOPY (Bilateral) Diagnosis: Acute kidney injury superimposed on CKD (CMS/HCC) Pyelonephritis (Acute kidney injury superimposed on CKD (CMS/HCC) [N17.9, N18.9]) (Pyelonephritis [N12]) Surgeons: Franklyn Manley MD Responsible Provider: Monika Hendrickson MD Anesthesia Type: MAC ASA Status: 3 Anesthesia Type: MAC Vitals Value Taken Time BP 161/66 07/28/24 1849 Temp 36.6 ???C (97.9 ???F) 07/28/24 184 Pulse 81 07/28/24 1855 Resp 15 07/28/24 1855 SpO2 97 % 07/28/241854 Vitals shown include unfiled device data. Anesthesia Post Evaluation Patient location during evaluation: PACU Patient participation: complete - patient participated Level of consciousness: awake Pain score: 0 Pain management: adequate Airway patency: patent Cardiovascular status: acceptable Respiratory status: acceptable and room air Hydration status: acceptable Patient is hemodynamically stable and is able to be discharged from PACU per anesthesia protocol. No notable events documented.[facility]12-12-2024 Note Patient: Patsy Mills Procedure Summary Date: 07/28/24 Room / Location: [facility] OPERATING ROOM 07 / [facility] Operating Room Anesthesia Start: 1757 Anesthesia Stop: Procedures: CYSTOURETEROSCOPY, WITH BILATERAL STENT EXCHANGE; SUPRAPUBIC CATHETER EXCHANGE (Bilateral) URETEROSCOPY (Bilateral) Diagnosis: Acute kidney injury superimposed on CKD (CMS/HCC) Pyelonephritis (Acute kidney injury superimposed on CKD (CMS/HCC) [N17.9, N18.9]) (Pyelonephritis [N12]) Surgeons: Franklyn Manley MD Responsible Provider: Monika Hendrickson MD Anesthesia Type: MAC ASA Status: 3 Anesthesia Post Transport Note Transport to: PACU O2 Route: room air Patient Monitor: direct observation Transport: uneventful Patient condition is: stableUnSumma Health W[facility]12-12-2024 Note Patient: Patsy Mills Procedure Information Date/Time: 07/28/241834 Procedure: CYSTOURETEROSCOPY, WITH STENT EXCHANGE (Bilateral) Location: [facility] OPERATING ROOM 07 / [facility] Operating Room Surgeons: Franklyn Manley MD Relevant Problems /Renal (+) Acute kidney [...] discussed with attending and resident. Additional Equipment RequestsUnSumma Health W[facility]12-12-2024 Note Attestation signed by Marvin Menezes MD at 07/28/2024 10:02 PM By using [...] me. Nephrology Progress Note Patient : Patsy Mills; 79 y.o. Location: Attending: Cris Devries DO Admit Date: 07/24/2024 Hospital Day: 4 Reason for Consult: RINA on CKD3b, appreciate recommendations regarding initiation of hemodialysis. Subjective: History of present illness: Patsy Mills is a 79 y.o. male with a history of hydronephrosis requiring ureteral stents and a chronic suprapubic catheter who came from [facility] as a transfer requiring higher level [...] placement for which initiation was transferred to [facility]. Patient's potassium has remained stable [...] Dose Status acetaminophen (Tylenol) 500 mg tablet [id number] Take 650 mg by mouth every 6 (six) hours if needed for mild pain (1-3 pain score). Historical Provider, Active aspirin 81 mg EC tablet [id number] Take 81 mg by mouth in the morning. Historical Prov (more content not included)...[facility]12-12-2024 NoteHospital Medicine Daily Progress Note - 07/28/2024 1:35 PM; Room: [address] [place] [address] Admission: 07/24/2024 4:16 PM; Length of stay: 4 days THE HOSPITALIST TEAM PREFERS TO USE 88tc88 FOR NON-URGENT COMMUNICATION 7AM-7PM. IF I DO NOT RESPOND WITHIN 20 MINUTES OR URGENT MATTERS, PLEASE CALL THROUGH THE OXYGEN THERAPY TEACHER. FROM 7PM-7AM, PLEASE PAGE [phone](COVR). Code Status: Full Code Barriers to Discharge:stent exchange Expected Discharge Date: 1 - 2 days Discharge Destination: home Overview Patsy Mills is an 79 y.o. male with a history of hydronephrosis requiring ureteral stents and a chronic suprapubic catheter who came from [facility] as a transfer requiring higher level [...] placement for which initiation was transferred to [facility]. Patient's potassium has remained stable [...] Problem: Acute kidney injury superimposed on CKD ([facility]) Active Problems: Hydronephrosis Pyelonephritis Macrocytic anemia Assessment and Plan Acute renal failure on CKD 3b secondary to urinary obstruction - nephrology and urology consulted - Baseline Cr is 2 - 2.5 - Cr today is 3.89 - monitor daily BMP - urology does plan to exchange stents today Complicated UTI with sepsis - spoke with [facility] blood cultures NGTD. Urine culture was mixed [...] cefTRIAXone, 1 g, intravenous, (more content not included)...[facility]12-12-2024 NoteOccupational Therapy Name: Patsy Mills Date of : 1945 Today's Date: 07/28/24 Pt is unable to be seen for therapy at this time secondary to patient defers reporting, I haven't been able to eat or drink for three days and I'm waiting for this procedure. . Will check back and complete therapy session as appropriate. Check No Charge Time attempted: [id number] State [facility]12-12-2024 Note Attestation signed by Franklyn Manley MD at 07/28/2024 5:36 PM I personally saw and examined the patient on the same date of service as resident/fellow saw the patient. I discussed the findings and therapeutic plan which is reflected on the plan in the note. I agree with the documentation Cesar Denise MD, Keith Barton MD, MD, Compa Barrios MD, Franklyn Manley MD, Ramesh Soto MD Urology - Progress [...] 07/28/24 0403 163/80 36.1 ???C (96.9 ???F) Temporal 63 19 98 % 07/28/24 0000 159/69 36.6 ???C (97.8 ???F) Temporal 69 22 97 % 07/27/242029 151/70 37.1 ???C (98.7 ???F) Temporal 67 22 93 % 07/27/24 2000 154/68 36.9 ???C (98.4 ???F) -- 69 [...] days Lab Units 07/28/24 0442 07/27/24 0515 07/26/245 SODIUM mmol/L 140 142 138 POTASSIUM mmol/L 4.2 3.9 4.2 CHLORIDE mmol/L 109* 106 108* CO2 mmol/L 26 29 21 BUN mg/dL 46* 61* 71* CREATININE mg/dL 3.89* 4.98* 6.28* CALCIUM mg/dL 7.9* 7.8* 8.0* Results from last 7 days Lab Units 07/27/24 0515 07/26/245 07/25/24 0450 WBC AUTO 10*3/uL 5.37 7.94 [...] to follow Chad Munoz MD Urology Resident, PGY-4UnSumma Health [facility]12-11-2024 Note Occupational Therapy Name: Patsy Mills Date of : 1945 Today's Date: 07/27/24 Pt is unable to be seen for therapy at this time secondary to PICC team arriving to place IV at this time . Will check back and complete therapy session as appropriate. Check No Charge Time attempted: 1400PKettering Health Behavioral [facility] Center12-11-2024 NoteHospital Medicine Daily Progress Note - 07/27/2024 12:34 PM; Room: [address] [place] [address] Admission: 07/24/2024 4:16 PM; Length of stay: 3 days THE HOSPITALIST TEAM PREFERS TO USE 88tc88 FOR NON-URGENT COMMUNICATION 7AM-7PM. IF I DO NOT RESPOND WITHIN 20 MINUTES OR URGENT MATTERS, PLEASE CALL THROUGH THE OXYGEN THERAPY TEACHER. FROM 7PM-7AM, PLEASE PAGE [phone](COVR). Code Status: Full Code Barriers to Discharge: renal function Expected Discharge Date: 3 - 4 days Discharge Destination: home Overview Patsy Mills is an 79 y.o. male with a history of hydronephrosis requiring ureteral stents and a chronic suprapubic catheter who came from [facility] as a transfer requiring higher level [...] placement for which initiation was transferred to [facility]. Patient's potassium has remained stable [...] Complicated UTI with sepsis - spoke with [facility] blood cultures NGTD. Urine culture was mixed [...] marrow transplantation/chemotherapy History of prostate CA - [place] 6 prostate cancer under active surveillance DMII [...] intravenous, q24h cholecalciferol, 2, (more content not included)...[facility]12-11-2024 NoteNephrology Progress Note Patient : Patsy Mills; 79 y.o. Location: Attending: Cris Devries DO Admit Date: 07/24/2024 Hospital Day: 3 Reason for Consult: RINA on CKD3b, appreciate recommendations regarding initiation of hemodialysis. Subjective: History of present illness: Patsy Mills is a 79 y.o. male with a history of hydronephrosis requiring ureteral stents and a chronic suprapubic catheter who came from [facility] as a transfer requiring higher level [...] placement for which initiation was transferred to [facility]. Patient's potassium has remained stable [...] Dose Status acetaminophen (Tylenol) 500 mg tablet [id number] Take 650 mg by mouth every 6 (six) hours if needed for mild pain (1-3 pain score). Historical Provider, Active aspirin 81 mg EC tablet [id number] Take 81 mg by mouth in the morning. Historical Provider, Active atorvastatin (Lipitor) 20 mg tablet [id number] Take 20 mg by mouth in the evening. Historical Provider, Active cholecalciferol (Vitamin D3) 50 MCG (1999 UT) tablet [id number] Take 2,000 Units by mouth. Historical ProviderMD Active cyanocobalamin (Vitamin B-12) 1,000 mcg tablet [id number] Take 1,000 mcg by mouth in the morning. Historical Provider, Active darbepoetin raymond (Aranesp, in polysorbate,) syringe [id number] Inject 10 mcg under the skin if needed (every other week as need (more content not included)...[facility]12-11-2024 Luis Enrique Denise MD, Keith Barton MD, , Compa Barrios MD, Franklyn Manley MD, Ramesh Soto MD Urology - Progress [...] (97.4 ???F) Temporal 79 24 95 % 07/26/24 2006 141/62 36.8 ???C (98.3 ???F) Temporal 68 [...] the signing clinician a (more content not included)...[facility]12-10-2024 NoteHospital Medicine Daily Progress Note - 07/26/2024 2:56 PM; Room: [address] [place] [address] Admission: 07/24/2024 4:16 PM; Length of stay: 2 days THE HOSPITALIST TEAM PREFERS TO USE 88tc88 FOR NON-URGENT COMMUNICATION 7AM-7PM. IF I DO NOT RESPOND WITHIN 20 MINUTES OR URGENT MATTERS, PLEASE CALL THROUGH THE OXYGEN THERAPY TEACHER. FROM 7PM-7AM, PLEASE PAGE [phone](COVR). Code Status: Full Code Barriers to Discharge: renal function Expected Discharge Date: 3 - 4 days Discharge Destination: home Overview Patsy Mills is an 79 y.o. male with a history of hydronephrosis requiring ureteral stents and a chronic suprapubic catheter who came from [facility] as a transfer requiring higher level [...] placement for which initiation was transferred to [facility]. Patient's potassium has remained stable [...] catheter with sepsis POA - spoke with [facility] blood cultures NGTD. 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 No () Screened by [facility]. Reviewed PT/OT, they recommend home. Per Hospitalist urology is following and possible CT. Await renal US results. Currently DC plan home no needs. will transport upon DC.[facility]12-10-2024 NoteNephrology Progress Note Patient : Patsy Mills; 79 y.o. Location: Attending: Cris Devries DO Admit Date: 07/24/2024 Hospital Day: 2 Reason for Consult: RINA on CKD3b, appreciate recommendations regarding initiation of hemodialysis. Subjective: History of present illness: Patsy Mills is a 79 y.o. male with a history of hydronephrosis requiring ureteral stents and a chronic suprapubic catheter who came from [facility] as a transfer requiring higher level [...] placement for which initiation was transferred to [facility]. Patient's potassium has remained stable [...] Dose Status acetaminophen (Tylenol) 500 mg tablet [id number] Take 650 mg by mouth every 6 (six) hours if needed for mild pain (1-3 pain score). Historical Provider, Active aspirin 81 mg EC tablet [id number] Take 81 mg by mouth in the morning. Historical Provider, Active atorvastatin (Lipitor) 20 mg tablet [id number] Take 20 mg by mouth in the evening. Historical Provider, Active cholecalciferol (Vitamin D3) 50 MCG (1999) tablet [id number] Take 2,000 Units by mouth. Historical Provider, Active cyanocobalamin (Vitamin B-12) 1,000 mcg tablet [id number] Take 1,000 mcg by mouth in the morning. Historical Provider, Active darbepoetin raymond (Aranesp, in polysorbate,) syringe [id number] Inject 10 mcg under the skin if needed (every other week as needed for hgb <10) (more content not included)...[facility]09[facility] - 07/25/2024 1:02 PM; Room: [address] [place] [address] Admission: 07/24/2024 4:16 PM; Length of stay: 1 days THE HOSPITALIST TEAM PREFERS TO USE [employer] CHAT FOR NON-URGENT COMMUNICATION 7AM-7PM. IF I DO NOT RESPOND WITHIN 20 MINUTES OR URGENT MATTERS, PLEASE CALL THROUGH THE OXYGEN THERAPY TEACHER. FROM 7PM-7AM, PLEASE PAGE [phone](COVR). Code Status: Full Code Barriers to Discharge: renal function Expected Discharge Date: 3 - 4 days Discharge Destination: home Overview Patsy Mills is an 79 y.o. male with a history of hydronephrosis requiring ureteral stents and a chronic suprapubic catheter who came from [facility] as a transfer requiring higher level [...] placement for which initiation was transferred to [facility]. Patient's potassium has remained stable [...] Problem: Acute kidney injury superimposed on CKD ([facility]) Active Problems: Hydronephrosis Pyelonephritis Macrocytic anemia Assessment and Plan Acute renal failure on CKD 3b secondary to urinary obstruction - nephrology and urology consulted - Baseline Cr is 2 - 2.5 - Cr today is 6.22 - monitor daily BMP Complicated UTI with sepsis - spoke with [place] blood cultures NGTD. Urine culture was mixed [...] marrow transplantation/chemotherapy History of prostate CA - [place] 6 prostate cancer under active surveillance DMII [...] 07/24/24 2111 POCT GLUCOSE (more content not included)...[facility] 07-25-2024 Note07/25/24 0921 Admission Assessment Questions Verify insurance with patient Yes Do you understand medical disease or what brought you into the hospital? Yes Who is your current PCP? Helen Stewart [facility]-updated in eipc Can I schedule a follow up appointment [...] able to send link and activate MyChart? [facility]12-09-2024 NoteOccupational Therapy Occupational Therapy Evaluation Patient Name: Patsy Mills : 1945 Today's Date: 07/25/2024 Discharge Recommendation: [...] file. Precautions Precautions Medical Precautions: fall risk, gunn, telemetry Pain Pain Assessment Pain Assessment: (pt reports pain in feet with WB only but did not rate) Cognition Cognition Overall Cognitive Status: Within Functional Limits General Assessment General Assessment Hearing: mild [place] Hand Dominance: Left Home Living Home Living [...] Level of Function Prior Function Level of [place]: Independent with ADLs and functional transfers, Independent [...] Deficit: (seated on toilet for attempted BM, gunn) Bed Mobility Bed Mobility Bed Mobility: Yes [...] Exceptions to WFL RUE Strength R Hand Agricultural Service Worker Strength: 4-/5 LUE Assessment LUE Assessment: Exceptions to WFL LUE Strength L Hand Agricultural Service Worker Strength: 4-/5 L Shoulder Flexion: 3+/5 (baseline) Outcome Assessments AM-PAC 6 Clicks Putting on and taking off regular lower body clothing?: A Little (Min Assist/Contact Guard/Supervision) Bathing(Including washing,rinsing,drying)?: A Little (Min Assist/Contact Guard/Supervision) Toileting, which includes using the toilet,bedpan,or urinal?: A Little (Min Assist/Contact Guard/Supervision) Putting on and taking off regular upper body clothing?: A Little (Min (more content not included)...[facility]12-09-2024 Note Attestation signed by Mikki Smith PT at 07/25/2024 2:02 PM This database report writer present and provided 1:1 supervision, direction of patient care and assistance with development of plan of care. Mikki Smith PT, MPT Physical Therapy Evaluation Patient Name: Patsy Mills Today's Date: 07/25/2024 Admit Date: 07/24/2024 07/25/24 [...] Appearance: WNL Coordination/Tone: WNL Precautions IV, telemetry, gunn catheter Objective assessment Bed mobility Not performed [...] this patient with direct supervision of the [facility] hospital[facility] therapist, who was present and actively involved in the patient's care. Whitney Sanders, [facility]12-08-2024 NoteHospital Medicine History and Physical 07/24/2024 11:28 PM THE HOSPITALIST TEAM PREFERS TO USE [employer] CHAT FOR NON-URGENT COMMUNICATION 7AM-7PM. IF I DO NOT RESPOND WITHIN 20 MINUTES OR URGENT MATTERS, PLEASE CALL THROUGH THE OXYGEN THERAPY TEACHER. FROM 7PM-7AM, PLEASE PAGE [phone](COVR). Chief Complaint Worsening RINA Need for nuclear scan with possible ureteral stent History of Present Illness Patsy Mills is an 79 y.o. male with a history of hydronephrosis requiring ureteral stents and a chronic suprapubic catheter who came from [facility] as a transfer requiring higher level [...] placement for which initiation was transferred to [facility]. Patient's potassium has remained stable [...] consult to dietitian. Admit to inpatient, on director ehs vitals closely As needed oxygen to maintain SpO2 greater than 90% Daily labs Fall risk Co (more content not included)...[facility]10-25-2024 Hospital Discharge instructions Patient Education 06/10/2024 11:53:20 [...] greater thelikelihood that the cancer will spread. [place] 6 or lower: This indicates that the cancer cells look similar to normal prostate cells (well differentiated). [place] 7: This indicates that the cancer cells [...] stress of having cancer. General instructions Take vwcy-ult-asewfyp and prescription medicines only as told by your health care provider. If you have to go to the hospital, notify your cancer specialist (oncologist). Keep all follow-up visits. This is important. Where to find more information [place] [employer]: www.cancer.org [place] [employer] Oncology: www.cancer.net National Cancer Agency: www.cancer.gov Contact a health care provider if: [...] provider. Document Revised: 10/30/2021 Document Reviewed: 10/30/2021 [employer] Patient Education 2023 [employer]. Follow Up Care 06/07/2024 15:19:44 With:Diego RICKS, OUSMANE Bell, URO Address: When: Unknown [facility] 10-25-2024 NotePatient Education Oncology Prostate Cancer The [...] thelikelihood that the cancer will spread. ??? [place] 6 or lower: This indicates that the cancer cells look similar to normal prostate cells (well differentiated). ??? [place] 7: This indicates that the cancer cells look somewhat similar to normal prostate cells (moderately differentiated). ??? [place] 8, 9, or 10: This indicates that [...] needles, seeds, wires, o (more content not included)...[facility]10-20-2024 Discharge summary Author Mayda Matthews [facility] June 05, 2024 11:44amNote Date/TimeOct2023 11:44amKimberly Ville [id number] Discharge Summary Signed Patient: Patsy Mills MR#: [id number] : 1945 Acct:[id number] Age/Sex: 79 / M Adm Date: 4 Loc: Room: [address] [place] [address]: Mayda Matthews MD Copies to: MD Helen Ivy MD~ Providers Date of Discharge: 06/05/24 Discharging Provider: Mayda Matthews Primary Care Provider: Helen Ochoa Consults: 06/02/24 18:07 Consult to Nephrology Routine [...] to Urology Routine Comment: Consulting Provider: Orquidea Issa Reason For Exam: left sided hydronephosis and [...] exchange done by urology as outpatient Dr. Issa. Patient tolerated the procedure well with no [...] today for follow-up visit at oncology and underwentblood work which showed worsening kidney function and [...] no clinical significance at this time. No evidenceof bacterial infection. -Avoid ACEI, ARB for now [...] gradually. No further hematuria noted. Patient feels wellclinically. Potassium level down to 4.3. Patient denies any active complaints today and eager to gohome. Patient has been cleared from nephrology standpoint [...] Actual Procedures p OR Cysto/Retro/Stent/Stone - Orquidea Issa MD Discharge Plan Discharge Plan Patient Disposition: [...] to restart this medicine. Follow Up: Orquidea Issa MD [Active Staff] - (Office to call [...] signed by Mayda Matthews MD> 06/05/24 1144 [facility] Work Phone: 1(484) 832-568710-20-2024 Progress note Author Domonique Rahman [facility] June 05, 2024 9:35amNote Date/TimeOct2023 9:35am[place] [address] Nephrology Progress Note Signed Patient: Patsy Mills MR#: [id number] : 1945 Acct:[id number] Age/Sex: 79 / M Adm Date: 4 Loc: Room: [address] [place] [address] Type: ADM IN Attending Dr: Mayda Matthews MD Copies to: ~ Date of Service: 06/05/2024 Subjective Subjective Narrative: Mr. Mills is a 79-year-old male with a past [...] exchange, and suprapubic catheter replaced by Dr. Issa. Currently the patient follows Dr. Crain for his chronic kidney disease and has baseline serum creatinine 2.2 to 2.5 mg/dL. The patient's also states that he had recently stopped antibiotics for a concern of a UTI. The patient states that hehas been in his normal health. He does state that he has been feeling more tired recently, secondary to not havingas much sleep. Patient states that today he [...] feeling better denies any disruption cough nausea vomitingshortness breath. Exam Physical Exam Vital Signs: Temp [...] Skin: No rashes , warm to touch PRODUCTION OFFICER: Awake,Alert, following simple command Musculoskeletal: No swelling [...] @ 100 mls/hr IV Q24H [facility] Last Admin: 06/04/24 09:43 Dose: 100 mls/hr Insulin Aspart (Insulin Aspart 300 Units/3 Ml Insuln.Pen) 8 units SUBCUT TID.ACSCH Stop: 06/03/25 07:29 Last Admin: 06/05/24 07:40 Dose: Not Given Insulin Glargine (Insulin Glargine 300 Units/3 Ml Insuln.Pen) 35 units SUBCUT QHS [facility] Stop: 06/02/25 21:59 Last Admin: 06/04/24 21:21 Dose: 35 units Lidocaine HCl (Lidocaine 1% 50 Ml Vial) 0.1 ml INTRADERMA PREOP PRN PRN Reason: Venipuncture x 1 Dose Oxybutynin Chloride (Oxybutynin Chloride 5 Mg Tab.Er.24) 10 mg PO BID [facility] Stop: 06/02/25 20:59 Last Admin: 06/05/24 08:02 [...] physician into a diagnostic report(s) for Patsy Mills. I have reviewed the report(s) and am incorporating any findings in the treatment plan of this patient where applicable. A&P - Nephrology Assessment/Plan (1) RINA (acute kidney injury): Assessment/Problem Details: Patient had an elevation in his creatinine to 3.47 from his baseline around 2.4. His creatinine hasimproved today from yesterday to 3.17. He has [...] catheter catheter showed Jessica albicans 50K colonies. Patientis currently on ceftriaxone which can be discontinued as there is no bacterial infection. * Check renal function 3 to 5 days after discharge. * Patient can be discharged from renal standpoint. * Outpatient follow-up with Dr. Crain as scheduled. Documented By: Domonique Rahman MD 06/05/2430 Signed By: <Electronically signed by Domonique Rahman MD> 06/05/24 4[facility] Work Phone: 1(183) 735-605810-19-2024 Progress note Author Mayda Matthews [facility] June 04, 2024 1:51pmNote Date/TimeOct2023 1:51pmDen[place] [address] Hospitalist Progress Note Signed Patient: Patsy Mills MR#: [id number] : 1945 Acct:[id number] Age/Sex: 79 / M Adm Date: 4 Loc: Room: [address] [place] [address] Type: ADM IN Attending Dr: Mayda Matthews MD Copies to: ~ Date of Service: 06/04/2024 Subjective Subjective Narrative: Patient was seen and evaluated at bedside. Remained afebrile here, no leukocytosis, H&H stable.Yesterday cystoscopy was canceled due to hyperkalemiapatient was given again, Hyperkalemia cocktailwith D5/insulin, bicarb, calcium gluconate, and asked with [...] <Electronically signed by Mayda Matthews MD> 06/04/24 1584 [facility] Work Phone: 1(602) 442-134210-19-2024 Progress note Author Domonique Rahman [facility] June 04, 2024 12:16pmNote Date/TimeOct2023 12:16pmDenver[place] [address] Nephrology Progress Note Signed Patient: Patsy Mills MR#: [id number] : 1945 Acct:[id number] Age/Sex: 79 / M Adm Date: 4 Loc: Room: [address] [place] [address] Type: ADM IN Attending Dr: Mayda Matthews MD Copies to: ~ Date of Service: 06/04/2024 Subjective Subjective Narrative: Mr. Mills is a 79-year-old male with a past [...] exchange, and suprapubic catheter replaced by Dr. Issa. Currently the patient follows Dr. Crain for his chronic kidney disease and has baseline serum creatinine 2.2 to 2.5 mg/dL. The patient's also states that he had recently stopped antibiotics for a concern of a UTI. The patient states that hehas been in his normal health. He does state that he has been feeling more tired recently, secondary to not havingas much sleep. Patient states that today he [...] He has been better denies any disruption coughnausea vomiting shortness breath. Exam Physical Exam Vital [...] Skin: No rashes , warm to touch PRODUCTION OFFICER: Awake,Alert, following simple command Musculoskeletal: No swelling [...] Tablet) 20 mg PO QPM [facility] Stop: 06/02/25 20:59 Last Admin: 06/03/24 20:00 Dose: 20 mg Docusate Sodium (Docusate 100 Mg Capsule) 100 mg PO BID PRN PRN Reason: Constipation Stop: 06/02/25 18:06 Heparin Sodium (Porcine) (Heparin 5,000 Unit/Ml Vial) 5,000 unit SUBCUT Q12HR [facility] Stop: 06/02/25 20:59 Last Admin: [...] @ 100 mls/hr IV Q24H [facility] Last Admin: 06/04/24 09:43 Dose: 100 mls/hr Insulin Aspart (Insulin Aspart 300 Units/3 Ml Insuln.Pen) 8 units SUBCUT TID.ACSCH Stop: 06/03/25 07:29 Last Admin: 06/04/24 09:41 Dose: Not Given Insulin Glargine (Insulin Glargine 300 Units/3 Ml Insuln.Pen) 35 units SUBCUT QHS [facility] Stop: 06/02/25 21:59 Last Admin: 06/03/24 20:09 Dose: 35 units Lidocaine HCl (Lidocaine 1% 50 Ml Vial) 0.1 ml INTRADERMA PREOP PRN PRN Reason: Venipuncture x 1 Dose Oxybutynin Chloride (Oxybutynin Chloride 5 Mg Tab.Er.24) 10 mg PO BID [facility] Stop: 06/02/25 20:59 Last Admin: [...] physician into a diagnostic report(s) for Patsy Mills. I have reviewed the report(s) and am incorporating any findings in the treatment plan of this patient where applicable. A&P - Nephrology Assessment/Plan (1) RINA (acute kidney injury): Assessment/Problem Details: Patient had an elevation in his creatinine to 3.47 from his baseline around 2.4. His creatinine hasimproved today from yesterday to 3.17. He has [...] signed by Domonique Rahman MD> 06/04/24 1216 [facility] Work Phone: 1(882) 958-945810-18-2024 Consult note Author Orquidea Issa [facility] June 03, 2024 5:31pmNote Date/TimeOctober 2023 3:25pm[place] [address] Urology Consult Note Signed Patient: Patsy Mills MR#: [id number] : 1945 Acct:[id number] Age/Sex: 79 / M Adm Date: 4 Loc: Room: [address] [place] [address] Type: ADM IN Attending Dr: Mayda Matthews MD Copies to: MD Mayda Heller MD Richard R Keller, MD~ History of Present Illness Consult Details Consult Date: 06/03/2024 Requesting Provider: Mayda Matthews MD HPI: 79-year-old male with history of multiple myeloma, prostate cancer on active surveillance, CKD, noncompliant bladder managed with chronic SPT and R [...] fewmonths ago, appears to be worsening despite gunn decompression. Review of Systems Review of Systems [...] disorder Hematologic: denies easy bleeding or bruising [facility] Medical History Suprapubic catheter BPH (benign prostatic [...] pen (Lantus Solostar U-100 Insulin) 35 unit subcutQHS 03/08/24 [History Confirmed 06/02/24] losartan 25 mg [...] % (Auto) 69.0, Lymph % (Auto) 15.6, [place] % (Auto) 7.5, Eos % (Auto) 7.7, Baso % (Auto) 0.2, Nucleat RBC Rel Count 0.1, Neut # (Auto) 3.8, Lymph # (Auto) 0.9 L, [place] # (Auto) 0.4, Eos # (Auto) 0.4, [...] Cloudy A, Urine pH 6.0, Ur Specific [place] 1.013, Urine Protein 70 H, Urine Glucose [...] through the abdomen and pelvis without intravenous contrast.This CT exam was performed using one or more following dose reduction techniques: Automated exposure control, adjustment of the mA and/or kV according to patient size, or use of iterative reconstruction technique. FINDINGS: Lung Bases: [Bibasilar scarring.] Organs:Suboptimal evaluation due to lack of IV contrast. Cholelithiasis. Liverand splenic granulomas. No CBD dilatation. Pancreas and adrenal glands appear unremarkable. Right-sided double-J ureteralstent is noted. No stone is seen along the course of the stent. Left nephrolithiasis, largest stonemeasuring 4 mm. Left-sided hydronephrosis and hydroureter without obstructing stone or definite mass. Abdominal aorta appears normal in caliber. GI: Stomach is grossly unremarkable. Small bowel appears nondilated. Appendix is normal. Left colondiverticulosis.[ Pelvis:[Suprapubic catheter is noted. Prostate gland normal [...] myeloma, prostate cancer on active surveillance, CKD, noncompliant bladder managed with chronic SPT and R [...] for additional procedures. Pt understands if a stentis placed it is not permanent and needs to be removed or exchanged within 3 months to prevent encrustation, infection, permanent renal damage, and/or potential need for more invasive surgeries. If renal function improves, will reassess potential for urinary diversion vs BL Nephrostomy tubes nursing home to rid pt of SPT and BL [...] diet, NPO @ [place] Documented By: Orquidea Issa MD 06/03/24 1520 Signed By: <Electronically signed by Orquidea Issa MD> 06/03/24 1736 [facility] Work Phone: 1(661) 505-970210-18-2024 Progress note Author Mayda Matthews [facility] June 03, 2024 2:38pmNote Date/TimeOct2023 2:33pm[place] [address] Hospitalist Progress Note Signed Patient: Patsy Mills MR#: [id number] : 1945 Acct:[id number] Age/Sex: 79 / M Adm Date: 4 Loc: Room: [address] [place] [address] Type: ADM IN Attending Dr: Mayda Matthews MD Copies to: ~ Date of Service: 06/03/2024 Subjective Subjective Narrative: Patient was seen and evaluated at bedside. Remained afebrile here, no leukocytosis, H&H stable.Potassium level from 6.1 to 5.0 and then 5.8 this morning, kidney function slightly improving but not yet to his baseline. Patient denies nausea or vomiting or diarrhea. Patient was maintained n.p.o.asper urology request for possible intervention today. Exam [...] Insuln.Pen SUBCUT 06/03/25 07:29 Not Given TID.AC EMMA Insulin Glargine 35 units 06/02/24 22:00 06/02/24 [...] <Electronically signed by Mayda Matthews MD> 06/03/24 4008 [facility] Work Phone: 1(530) 426-170810-18-2024 Consult note Author Domonique Rahman [facility] June 03, 2024 11:17amNote Date/TimeOctober 2023 10:14[place], [place] [address] Nephrology Consult Note Signed Patient: Patsy Mills MR#: [id number] : 1945 Acct:[id number] Age/Sex: 79 / M Adm Date: 4 Loc: Room: [address] [place] [address] Type: ADM IN Attending Dr: Mayda Matthews MD Copies to: Domonique JosiahMD Mayda briceño MD Richard R Keller, MD~ Providers Consult Date: 06/03/24 Requesting Provider: Mayda Matthews MD Primary Care Provider: Helen Ochoa MD [facility] Reason for Consult: Chronic kidney disease management and hyperkalemia History of Present Illness: Mr. Mills is a 79-year-old male with a past [...] exchange, and suprapubic catheter replaced by Dr. Issa. Currently the patient follows Dr. Crain for his chronic kidney disease and has baseline serum creatinine 2.2 to 2.5 mg/dL. The patient's also states that he had recently stopped antibiotics for a concern of a UTI. The patient states that hehas been in his normal health. He does state that he has been feeling more tired recently, secondary to not havingas much sleep. Patient states that today he [...] Denies diarrhea, Denies nausea and Denies vomiting [facility] Medical History Suprapubic catheter BPH (benign prostatic [...] pen (Lantus Solostar U-100 Insulin) 35 unit subcutQHS 03/08/24 [History Confirmed 06/02/24] losartan 25 mg [...] Ringers) 1,000 mls @ 75 mls/hr IV .[id number] [facility] Stop: 06/03/24 10:46 Last Admin: 06/02/24 21:38 Dose: 75 mls/hr Insulin Aspart (Insulin Aspart 300 Units/3 Ml Insuln.Pen) 8 units SUBCUT TID.ACSCH Stop: 06/03/25 07:29 Last Admin: 06/03/24 09:17 Dose: Not Given Insulin Glargine (Insulin Glargine 300 Units/3 Ml Insuln.Pen) 35 units SUBCUT QHS [facility] Stop: 06/02/25 21:59 Last Admin: 06/02/24 21:40 Dose: 35 units Oxybutynin Chloride (Oxybutynin Chloride 5 Mg Tab.Er.24) 10 mg PO BID [facility] Stop: 06/02/25 20:59 Last Admin: [...] Skin: No rashes , warm to touch PRODUCTION OFFICER: Awake,Alert, following simple command Musculoskeletal: No swelling [...] Cloudy A Urine pH 6.0 Ur Specific Fertile 1.013 Urine Protein 70 H Urine Glucose (UA) 100 H Urine Ketones Negative Urine Occult Blood 2+ H Urine Nitrite Negative Ur Leukocyte Esterase 4+ H Urine RBC 50-100 H Urine WBC Innumerable H Urine Bacteria 1+ H 06/03/24 05:58 BUN 42 H Creatinine 3.17 H Albumin 3.2 L Urine Color Urine Appearance Urine pH Ur Specific Fertile Urine Protein Urine Glucose (UA) Urine Ketones [...] Mir Jr., D.O.06/02/2024 6:08 PM Dictation Location: [place] [address] Any impression(s) listed above is documentation that was entered by the reading physician into a diagnostic report(s) for Patsy Mills. I have reviewed the report(s) and am incorporating any findings in the treatment plan of this patient where applicable. A&P - Nephrology Assessment/Plan (1) RINA (acute kidney injury): Assessment/Problem Details: Patient had an elevation in his creatinine to 3.47 from his baseline around 2.4. His creatinine hasimproved today from yesterday to 3.17. He has ATN either due to the intraoperative hemodynamic changes or obstruction. (2) Hydronephrosis, left: Assessment/Problem Details: CT of the abdomen pelvis demonstrated hydronephrosis with hydroureter and demonstrated an known UVJstricture. The patient recently had a ureteral stent [...] signed by Domonique Rahman MD> 06/03/24 1117 [facility] Work Phone: 1(511) 456-681210-17-2024 History and physical note Author Mayda Matthews [facility] June 02, 2024 6:36pmNote Date/TimeOct2023 6:12pm[place] [address] Hospitalist H&P Signed Patient: Patsy Mills MR#: [id number] : 1945 Acct:[id number] Age/Sex: 79 / M Adm Date: 4 Loc: Room: [address] [place] [address] Type: ADM IN Attending Dr: Mayda Matthews [...] exchange done by urology as outpatient Dr. Issa yesterday. Patient tolerated the procedure well with no immediate complications. He does have suprapubic catheter at baseline. Denies any issueswith drainage from catheter. Denies fever, chills, nausea, [...] BUN 48 and creatinine 3.47 which has pro gressed from before. Afebrile here, no leukocytosis, hemoglobin appears stable. Patient does reportsome hematuria postprocedure which she thought was normal since he gets that after interventions. He does report there was blood clots coming out which has been cleared according to him. Hemodynamically stable at this time. Patient was given IV fluids in the ER as well as hyperkalemia cocktail withinsulin/dextrose, Lokelma, calcium gluconate. Decision was made toadmit him for further evaluation and management. Review of Systems Review of Systems Review of systems: 10 systems are reviewed and are negative except as mentioned elsewhere in the documentation [facility] Medical History Suprapubic catheter BPH (benign prostatic [...] pen (Lantus Solostar U-100 Insulin) 35 unit subcutQHS 03/08/24 [History Confirmed 06/02/24] losartan 25 mg [...] setting as: INPATIENT because of an expectation ofan over 2 midnight stay. Estimated length of stay (# of days): 3 Documented By: Mayda Matthews MD 06/02/24 18 11 Signed By: <Electronically signed by Mayda Matthews MD> 06/02/24 1836 [facility] Work Phone: 1(951) 406-393510-17-2024 Evaluation note* Diagnosis Onset Date Resolution Status Admit Date Anemia of chronic renal failure, stage 4 (severe) acuteOctober 2023 2:25atI11 deficiencychronicOctober 2023 2:06pm Encounter for coordination of complex carechronicOctober 2023 2:06pm History of hemodialysischronicOctober 2023 2:06pmLight chain nephropathy due to multiple myelomachronicOctober 2023 2:06pmSteroid-induced diabetes mellituschronicOctober 2023 2:06pmAcute kidney injury superimposed on CKD inactiveOctober 2023 2:06pmAnemia of renal diseaseinactiveOctober 2023 2:06pmChronic suprapubic catheterinactiveOctober 2023 2:06pm HyperkalemiainactiveOctober 2023 2:06pmAcute kidney injury superimposed on CKDinactiveOctober 2023 5:52pmAKI (acute kidney injury)inactiveOctober 2023 5:52pmAnemia of renal diseaseinactiveOct2023 5:52pmChronic suprapubic catheterinactiveOctober 2023 5:52pmCKD (chronic kidney disease) stage 4, GFR 15-29 ml/mininactiveOctober 2023 5:52pmHydronephrosis, left inactiveOctober 2023 5:52pmHyperkalemiainactiveOctober 2023 5:52pm Hypertensive chronic kidney disease with stage 1 through stage 4 chronic ki inactiveOctober 2023 5:52pmNoncompliant bladderinactiveOct2023 5:52pmType 2 diabetes mellitus with diabetic chronic kidney diseaseinactive June 02, 2024 5:45yeF44 deficiencychronicNovember 2023 11:03am Chemotherapy-induced peripheral neuropathychronicNovember 2023 11:03am Encounter for chemotherapy managementchronicNovember 2023 11:03amEncounter for coordination of complex carechronicNovember 2023 11:03amHistory of anemia due to vitamin B12 deficiencychronicNov2023 11:03amHistory of hemodialysischronicNovember 2023 11:03amIron deficiency anemiachronic June 23, 2024 11: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 June 23, 2024 11:03amRash and nonspecific skin eruptionchronicNovember 2023 11:03amSteroid-induced diabetes mellituschronicNovember 2023 11:03am Superficial thrombophlebitis of left upper extremitychronicNovember 2023 11:03amUrinary incontinencechronicNovember 2023 11:03amAcute renal failure on dialysisresolvedNov2023 11:03amAnemia of renal diseaseinactive June 23, 2024 11:03am [facility] Work Phone: 1(433) 825-567110-17-2024 Evaluation note* Diagnosis Onset Date Resolution Status Admit Date Anemia of chronic renal failure, stage 4 (severe) acuteOctober 2023 2:98lwD21 deficiencychronicOctober 2023 2:06pm Encounter for coordination of complex carechronicOctober 2023 2:06pm History of hemodialysischronicOctober 2023 2:06pmLight chain nephropathy due to multiple myelomachronicOctober 2023 2:06pmSteroid-induced diabetes mellituschronicOctober 2023 2:06pmAcute kidney injury superimposed on CKD inactiveOctober 2023 2:06pmAnemia of renal diseaseinactiveOctober 2023 2:06pmChronic suprapubic catheterinactiveOctober 2023 2:06pm HyperkalemiainactiveOctober 2023 2:06pmAcute kidney injury superimposed on CKDinactiveOctober 2023 5:52pmAKI (acute kidney injury)inactiveOctober 2023 5:52pmAnemia of renal diseaseinactiveOctober 2023 5:52pmChronic suprapubic catheterinactiveOctober 2023 5:52pmCKD (chronic kidney disease) stage 4, GFR 15-29 ml/mininactiveOctober 2023 5:52pmHydronephrosis, left inactiveOctober 2023 5:52pmHyperkalemiainactiveOctober 2023 5:52pm Hypertensive chronic kidney disease with stage 1 through stage 4 chronic ki inactiveOctober 2023 5:52pmNoncompliant bladderinactiveOctober 2023 5:52pmType 2 diabetes mellitus with diabetic chronic kidney diseaseinactive October 2023 5:11uzI80 deficiencychronicNovember 2023 11:03am Chemotherapy-induced peripheral neuropathychronicNovember 2023 11:03am Encounter for chemotherapy managementchronicNovember 2023 11:03amEncounter for coordination of complex carechronicNovember 2023 11:03amHistory of anemia due to vitamin B12 deficiencychronicNovember 4 11:03amHistory of hemodialysischronicJune 23, 2024 11:03amIron deficiency anemiachronic June 23, 2024 11: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 June 23, 2024 11:03amRash and nonspecific skin eruptionchronicNov2023 11:03amSteroid-induced diabetes mellituschronicNov2023 11:03am Superficial thrombophlebitis of left upper extremitychronicNov2023 11:03amUrinary incontinencechronicNov2023 11:03amAcute renal failure on dialysisresolvedNov2023 11:03amAnemia of renal diseaseinactive June 23, 2024 11:03amAnemia of chronic renal failure, stage 4 (severe)acute June 29, 2024 2:19pmDiabetes 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acuteJune 29, 2024 2:19pmHypophosphatemiaacuteNov2023 2:19pmHistory of anemia due to vitamin B12 deficiencychronicNov2023 2:19pmLight chain nephropathy due to multiple myelomachronicNov2023 2:19pmHyperkalemia inactiveJune 29, 2024 2:19pmHypertensive chronic kidney disease with stage 1 through stage 4 chronic kiinactiveJune 29, 2024 2:19pmHydronephrosis deletedJune 29, 2024 2:19pmStage 3b chronic kidney disease (CKD)deleted June 29, 2024 2:19pm [facility] Work Phone: 1(226) 719-842509-03-2024 Evaluation + Plan note Diagnostic Tests Pending * Urine Culture 04/19/24 [facility] 06-19-2024 Note [id number] Discharge instructions Patient [...] including vitamins, herbs, eye drops, creams, and jmqe-wjc-cwqfdvg medicines. Any problems you or family members [...] provider tells you to take them. Taking ujsq-bdl-qkkgsfd medicines, vitamins, herbs, and supplements. General instructions [...] provider. Document Revised: 03/08/2021 Document Reviewed: 03/08/2021 [employer] Patient Education 2022 [employer]. Follow Up Care 09/25/2023 15:44:21 With:Diego RICKS, OUSMANE Bell, URO Address: When: Unknown [facility] 06-10-2024 Note [id number] 01-22-2024 Progress note Author Price Crain [facility] January 22, 2024 10:20amNote Date/TimeJune 2023 10:20am[place] [id number] Nephrology Progress Note Signed Patient: Patsy Mills MR#: [id number] : 1945 Acct:[id number] Age/Sex: 78 / M Adm Date: 4 Loc: Room: [address] [place] [address] Type: ADM IN Attending Dr: Clarence Miller DO Copies to: ~ Date of Service: 01/22/2024 Subjective Subjective Narrative: This is a 78-year-old male patient with past medical history of 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 Patient pre sent to the hospital for progressive generalized weakness along with fatigue and lightheadedness and chills for the last week. Patient was prescribed Macrobid as outpatient for UTI in the emergency room UA continues to show UTI. Patient was admitted and was given 1 L of normal saline and kept on IVfluid Ringer lactate at 100 cc/h .Urine cultures growing Klebsiella oxytoca. Patient currently on Ro cephin. Renal ultrasound showed mild bilateral pelvocaliectasis left [...] 50 mls @ 100 mls/hr IV Q24H [facility] Last Infusion: 01/21/24 21:32 Dose: Infused Insulin [...] physician into a diagnostic report(s) for Patsy Mills. I have reviewed the report(s) and am incorporating any findings in the treatment plan of this patient where applicable. A&P - Nephrology Assessment/Plan (1) RINA (acute kidney injury): Plan: Patient presents with a creatinine 3.0 mg/dL. Sodium fractional excretion is 4.8%. Patient has mildbilateral pelvocaliectasis. Patient has been IV fluid since [...] is either from ATN or post renal etiologysince ultrasound showing bilateral pelviectasis. * There is [...] signed by Price Crain MD> 01/22/24 1020 [facility] Work Phone: 1(457) 474-573906-06-2024 Consult note Author Price Crain [facility] January 21, 2024 12:47pmNote Date/TimeJune 2023 12:42pmKimberly Ville [id number] Nephrology Consult Note Signed Patient: Patsy Mills MR#: [id number] : 1945 Acct:[id number] Age/Sex: 78 / M Adm Date: 4 Loc: 3T Room: [address] [place] [address] Type: ADM IN Attending Dr: Clarence Miller DO Copies to: MD Clarence Ashton DO Richard R Keller, MD~ Providers Consult Date: 01/21/24 Requesting Provider: Clarence Miller DO Primary Care Provider: Helen Ochoa MD [facility] Reason for Consult: Acute kidney injury on chronic kidney disease History of Present Illness: This is a 78-year-old male patient with past medical history of 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 Patient pre sent to the hospital for progressive generalized weakness along with fatigue and lightheadedness and chills for the last week. Patient was prescribed Macrobid as outpatient for UTI in the emergency room UA continues to show UTI. Patient was admitted and was given 1 L of normal saline and kept on IVfluid Ringer lactate at 100 cc/h .Urine cultures growing Klebsiella oxytoca. Patient currently on Ro cephin. Renal ultrasound showed mild bilateral pelvocaliectasis left [...] systems: 12 system review is negative today [facility] Medical History (Updated 01/19/24 @ 21:16 by [...] pen (Lantus Solostar U-100 Insulin) 45 unit subcutQHS 10/26/23 [History Confirmed 01/19/24] insulin lispro 100 [...] Q12HR EMMA Stop: 01/20/25 08:59 Last Admin: 01/21/24 09:19 Dose: 5,000 unit Lactated Ringer's (Lactated Ringers) 1,000 mls @ 100 mls/hr IV .Q10H [facility] Stop: 01/18/25 19:44 Last Admin: 01/21/24 05:17 Dose: 100 mls/hr Ceftriaxone Sodium (Rocephin) 2 gm in 50 mls @ 100 mls/hr IV Q24H [facility] Last Infusion: 01/20/24 20:49 Dose: Infused Insulin Aspart (Insulin Aspart 300 Units/3 Ml Insuln.Pen) 8 units SUBCUT TID.ACSCH Stop: 01/19/25 07:29 Last Admin: 01/21/24 08:42 Dose: 8 units Insulin Glargine (Insulin Glargine 300 Units/3 Ml Insuln.Pen) 45 units SUBCUT QHS [facility] Stop: 01/18/25 21:59 Last Admin: 01/20/24 22:21 [...] on the LEFT. Impression dictated by: Gary Hart M.D.01/20/2024 7:01 PM Dictation Location: [place] [address] Any impression(s) listed above is documentation that was entered by the reading physician into a diagnostic report(s) for Patsy Mills. I have reviewed the report(s) and am incorporating any findings in the treatment plan of this patient where applicable. A&P - Nephrology Assessment/Plan (1) RINA (acute kidney injury): Plan: Patient presents with a creatinine 3.0 mg/dL. Sodium fractional excretion is 4.8%. Patient has mildbilateral pelvocaliectasis. Patient has been IV fluid since [...] signed by Price Crain MD> 01/21/24 1247 [facility] Work Phone: 1(798) 793-422606-06-2024 Progress note Author Clarence Miller [facility] January 21, 2024 11:02amNote Date/TimeJune 2023 10:48[place] [id number] Hospitalist Progress Note Signed Patient: Patsy Mills MR#: [id number] : 1945 Acct:[id number] Age/Sex: 78 / M Adm Date: 4 Loc: 3T Room: [address] [place] [address] Type: ADM IN Attending Dr: Clarence Miller [...] near 5% roughly. Slight improvement again with ongoinghydration. Suspect a component of acute tubular necrosis from prolonged period of dehydration. Continue to treat infection. Appreciate nephrology recommendations. Will consult urology for findings onrenal ultrasound of bilateral pelvocaliectasis. Patient follows with [facility]. Lane mostrecently and has a complex urologic history prior to that including a UroLift procedure, TURP at [facility] July 2022, indwelling Gunn catheter, multiple kidney stones recurrent UTIs and [...] <Electronically signed by Clarence Miller DO> 01/21/24 1108 [facility] Work Phone: 1(543) 560-254206-05-2024 Progress note Author Clarence Miller [facility] January 20, 2024 4:33pmNote Date/TimeJune 2023 4:19[place] [address] Hospitalist Progress Note Signed Patient: Patsy Mills MR#: [id number] : 1945 Acct:[id number] Age/Sex: 78 / M Adm Date: 4 Loc: Room: [address] [place] [address] Type: ADM IN Attending Dr: Clarence Miller DO Copies to: ~ Date of Service: 01/20/2024 Subjective Subjective Narrative: Patient was seen and examined at bedside today. He is sitting up and states he feels better withoutany major complaints. No abdominal pain, flank pain, [...] <Electronically signed by Clarence Miller DO> 01/20/24 6675 [facility] Work Phone: 1([phone]) 639-384606-05-2024 History and physical note Author Clarence Miller [facility] January 20, 2024 10:25amNote Date/TimeJune 2023 6:38pm[place] [address] Hospitalist H&P Signed Patient: Patsy Mills MR#: [id number] : 1945 Acct:[id number] Age/Sex: 78 / M Adm Date: 4 Loc: Room: [address] [place] [address] Type: ADM IN Attending Dr: Clarence Miller [...] 181. Chemistries show hyponatremia 133, 19.3, non-anion gapmetabolicacidosis. Acute kidney injury BUN/creatinine 47/3.07. Glucose 133. Patient was started empirically on Rocephin after blood cultures and urine cultures weresent. [facility] complicated UTI andacute kidney injury. [facility] the patient is calm appearing in [...] better in response to this but failed outpatienttreatment. While not septic at the moment he [...] negative unless noted below or in HPI [facility] Medical History (Updated 01/19/24 @ 21:16 by Clarence Milelr DO) Suprapubic catheter BPH (benign prostatic hyperplasia) [...] pen (Lantus Solostar U-100 Insulin) 45 unit subcutQHS 10/26/23 [History Confirmed 01/19/24] insulin lispro 100 [...] % (Auto) 6.9 % (.) 01/19/24 14:53 Randolph % (Auto) 7.0 % (.) 01/19/24 14:53 Eos % (Auto) 2.0 % (.) 01/19/24 14:53 Baso % (Auto) 0.3 % (.) 01/19/24 14:53 Nucleat RBC Rel Count 0.0 /100 WBC (0-0.5) 01/19/24 14:53 Neut # (Auto) 9.3 x10E3/uL (1.8-7.7) H 01/19/24 14:53 Lymph # (Auto) 0.8 x10E3/uL (1.00-4.8) L 01/19/24 14:53 Randolph # (Auto) 0.8 x10E3/uL (0.0-0.8) 01/19/24 14:53 [...] 3rd Generation Cancelled 01/19/24 14:53 Urine Color Hardeman (Yellow) A 01/19/24 15:05 Urine Appearance Turbid (Clear) A 01/19/24 15:05 Urine pH 6.0 (5.0-9.0) 01/19/24 15:05 Ur Specific Fertile 1.013 (1.001-1.030) 01/19/24 15:05 Urine Protein 200 [...] setting as: INPATIENT because of an expectation ofan over 2 midnight stay. Estimated length of stay (# of days): 3 Documented By: Clarence Miller DO 01/19/24 18 35 Signed By: <Electronically signed by Clarence Miller DO> 01/20/24 4803 [facility] Work Phone: 1(908) 227-431012-06-2023 Hospital Discharge instructions Patient Education 07/22/2023 10:06:20 [...] Follow these instructions at home: Medicines Take mfoz-lij-mcifmhh and prescription medicines only as told by [...] actions to prevent or treat constipation: ?Take owja-kjc-gumkvkh or prescription medicines. ?Eat foods that are [...] last for up to 1 week. Take izub-lyx-xcujhfk and prescription medicines only as told by [...] provider. Document Revised: 09/08/2022 Document Reviewed: 09/08/2022 [employer] Patient Education 2022 [employer]. 07/22/2023 10:06:01 Suprapubic Catheter Replacement Suprapubic Catheter [...] and water are not available, use hand backend java developer. Disconnect the bag from the catheter and immediately attach a new bag to the catheter. Empty the used bag completely. Clean the used bag according to the commodity specialist's instructions, or as told by your health care provider. Let the bag dry completely, and put it in a clean plastic bag before storing it. General instructions Always wash your hands before and after caring for your catheter and collection bag. Use soap and water. If soap and water are not available, use hand backend java developer. Always make sure there are no leaks [...] provider. Document Revised: 06/10/2022 Document Reviewed: 06/10/2022 [employer] Patient Education 2022 [employer]. Follow Up Care 07/02/2023 11:48:56 With:Diego RICKS, OUSMANE Bell, URO Address: [address], [facility] [place] [address]- [phone] When: Unknown Comments:SPT/R stent exchange with 100u of Botox in Sep 2023 [facility] 10-12-2023 Evaluation + Plan note Diagnostic Tests Pending * Urine Culture 05/28/23 [facility]09-29-2023 Hospital Discharge instructions Patient Education 05/15/2023 16:14:46 [...] your health care provider. General instructions Take kpjc-odf-jfuextv and prescription medicines only as told by [...] provider. Document Revised: 04/22/2021 Document Reviewed: 04/22/2021 [employer] Patient Education 2022 [employer]. Follow Up Care 04/17/2023 11:27:09 With:Diego RICKS, OUSMANE Bell, URO Address: [address], [place] [address] [phone] When: Unknown Comments:-KUB-sched cysto/R stent exchange and L ESWL and SPT change [facility] [place] 06-30-2023 Hospital Discharge instructions Patient Education [...] include: ?8 oz (237 mL) of milk, nmsuusi-iujnvbqqhhtv-vbagt milk, and calcium- fortifiedfruit juice. Calcium-fortified means [...] ?Spinach (cooked), rhubarb, beets, sweet potatoes, and [place] chard. ?Peanuts. ?Potato chips, slovak fries, and baked potatoes with skin on. ?Nuts and nut products. ?Chocolate. If you regularly take a diuretic medicine, make sure to eat at least 1 or 2 servings of fruits or vegetables that are high in potassium each day. These include: ?Avocado. ?Banana. ?Hardeman, prune, carrot, or tomato juice. ?Baked potato. [...] magnesium, fish oil, or vitamin B6. Take gamc-ptw-iwtsazd and prescription medicines only as told by [...] Casseroles. Pizza. Lasagna. Frozen meals. Potato chips. Australian fries. The items listed above may not [...] provider. Document Revised: 04/14/2022 Document Reviewed: 04/14/2022 [employer] Patient Education 2022 [employer]. Follow Up Care 01/16/2023 10:55:40 With:Diego RICKS, OUSMANE Bell, URO Address: When: Unknown [facility] [place] 06-28-2023 Instructions* Patient Instructions* Yocasta Garcias APRN.LEAD CARGOMAN - 02/11/2023 1:04 PM EDT PATIENT PREOPERATIVE INSTRUCTIONS Jessica Carreon MD has scheduled you for your procedure at this surgery center: [facility]: [phone] --[address] [place] [address]. Please read below carefully for your personalized [...] Procedures: - YOU MUST HAVE A RESPONSIBLE EXTRUSION FORMER TAKE YOU HOME. A MATERIAL CARRIER OR SKIN PILER CANNOT BE MADE A RESPONSIBLE EXTRUSION FORMER. - We recommend that a responsible person [...] Advance Directive, please fax a copy to [phone] or email to for it to be [...] into your chart that day. Yocasta Garcias APRN.CNP documented [facility] History and physical note * Yocasta [...] fevers. Neuro: No history of TIA's, stroke, PRODUCTION OFFICER tumor, impaired sensorium, hemiplegia, paraplegia or quadraplegia. No neurological symptoms or problems. Respiratory: Positive for Tobacco Use Former Smoker , History of RUDY s/p Uvulectomy Negative for Nohistory of current cough or dyspnea, or pneumonia in the past 6 weeks. No history of respiratory/pulmonary symptoms or problems Cardiovascular: Positive for: HLD, Hypertension no history of angina, CHF, [place], cardiac surgery or stents. Denies rest pain, [...] for today's visit: CBC auto differential Order: [id number] Component Ref Range & Units 6 d [...] BASOPHILS 0.0 - 0.2 10*3/uL 0.0 Resulting Agency [facility] Specimen Collected: 02/05/23 12:42 PM Last Resulted: 02/05/23 1:22 PM Received From: [facility] [employer] Result Received: 02/11/23 12:13 PM Comprehensive metabolic panel Order: [id number] Component Ref Range & Units 6 d [...] CREATININE CLR [facility] 51.98 Resulting Agency [facility] Specimen Collected: 02/05/23 12:42 PM Last Resulted: 02/05/23 4:22 PM Received From: [employer] Result Received: 02/11/23 12:13 PM Echocardiogram Narrative Performed by [facility], [address] [place] [address] and TRANSTHORACIC ECHOCARDIOGRAM REPORT Patient Name: PATSY Suarez Physician: [id number] Lj Diallo MD Study Date: 08/08/2020 Referring Physician: Zofia Tripp MD MRN/PID: [id number] PCP: Accession/Order#: [id number] Department Location: [place] [address] Date of : 1945 Fellow: Gender: M Nurse: Admit Date: 07/23/2020 Security Strategist: Sharifa Porter CHIKI Admission Status: Inpatient - Additional Staff: Priority discharge Height: 172.72 cm CC Report to: [address] [place] [address] Weight: 83.92 kg Study Type: Echocardiogram BSA: 1.98 m2 Blood Pressure: 143 /64 mmHg Diagnosis/ICD: C65-Gzhfgyyaendi, valve unspecified Indication: Vegetation Procedure/CPT: Echo Complete w Full [id number] Patient History: Pertinent Stage III IgG [place] Multiple Myeloma, DM2, HTN, GERD, History: Neuropathy. [...] Rate BPM 82 Atrial Rate BPM 82 MN Interval ms 164 QRS Duration ms 114 QT Interval ms 380 QTC Calculation(Bazett) ms 444 P [place] degrees 3 R [place] degrees 16 T [place] degrees 26 QRS Count beats 13 Q Onset ms 213 P Onset ms 131 P Offset ms 183 T Offset ms 423 QTC Fredericia ms [address] [facility] Narrative Performed by 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 Prostate cancer (HCC) Assessment: history of prostate CA s/p TURP No chemo or radiation Iron deficiency anemia Assessment: Following with Hematology Receiving Aranesp injections twice a month Rheumatoid arthritis (HCC) Assessment: using OTC pain medication METS: Climb [...] 2023 TIME: 12:30 PM documented in this encounterMem[facility] Progress note Author Brook Huddleston [facility] January 23, 2023 8:59amNote Date/TimeJune 2022 2:34pmNorth Central [facility] [place] [address] Hem/Onc Follow Up Note - OP Signed Patient: Patsy Mills MR#: [id number] : 1945 Acct:[id number] Age/Sex: 77 / M Type: REG RCR [...] an upcoming urodynamics procedure with his urologist [facility] next week. He has persistent unchanged fatigue from prior visits. We had requested addition of Aranesp 200 mcg every 2weeks to improve his hemoglobin and fatigue: His is concerned that they receive Dilaudid is not covering and we are checking with our financial counselor as we proceed with approved. B12 and [...] He had a phone follow-up with Dr. Paredes July [address] Hall [...] falls. He did undergo TURP with Dr. Issa of urology at [facility] with some improvement of his urinary incontinence symptoms. He did not have any e vidence of infection on urinalysis. He has follow-up with nephrology in 1 month. We will arrange CBC in 1 month and contact him with response to whichever intervention based on his labs (repleting iron, increasing B12, or adding Aranesp). He will defer follow-up with myeloma labs including serum and urine protein electrophoresis, quantitative immunoglobulins, and kappa/lambda light chain ratio to4 months unless new symptoms arise. Moderate complexity 35-minute follow-up visit. 07/28/2022: Patsy is here for interval 1 month follow up; not much gear changer the past 1 month - of note, patient was taken off Revlimid on 06/27/2022 visit due to profound fatigue and no evidence of on recent Clonoseq testing. His primary complaint is urinary symptoms and increased urinary frequency - not sleeping well due to waking up frequently with urination. He is planning on undergoing TURP with Dr. Issa this 07/31/2022. He is still fatigued, still not much energy or appetite;but overall no significant changes. He saw Dr. Hall on 07/03/2022 and his note was reviewed. He mentioned that it would bebeneficial for patient to continue Revlimid if able; he was also taken off Ac yclovir and advised to follow up with Dr. Hall in 1 year with MRD testing. 06/27/2022: Patsy is here for followup to review Clonoseq testing that was still pending at last visit. He continues to have increased urine frequency andincontinence after prior Urolift surgery. Hewas given Mybetriq to manage urinefrequency but notes this was not well tolerated due to mouth sores, diarrhea, and headaches which improved after stopping the medication. No other concerningsymptomsalthough he has persistent fatigue and is frustrated with his quality of life. His Clonoseq returned at zero clonal cells. We noted since he has no evidence of disease in marrow and decreased qualityof life, he will hold Revlimid x 1 month to see if symptoms improve. One month followup with CEN[employer]UGAL CHILLER TECHNICIAN to r ramakrishnaw labs and symptoms. He also has followup with Dr. Hall in one week and will inform him of plan for one month off Revlimid. He also may seek Urology second opinion. 05/23/2022: Noted to have Urolift procedure at [facility] last month, noted increased post-op painthat is slowly improving. On 05/16 he had [...] bone marrow aspirate alone in clinic today tosend for MRD testing. Other labs are stable--we [...] of kidney stone by Dr. Seals at [place] on 01/14/2022 without complications. Sent off Revlimid since December 12, 2021 due to cytopenias. Otherwise no changes in clinical history. He is due for his second shingles shot and since he is otherwise stable with norecent infections he can receive his second dose. He did require transfusion of 2 units packed red blood cells for hemoglobin 6.7 on 01/23/2022. Hemoglobin has now improved to normal methylmalonic acidand homocystine, elevated iron saturation 72% and ferritin elevated to 663. Erythropoietin level was also elevated to 547.7 so he is not a candidate for erythrocyte stimulating agents. At this time Pradeep continue to hold Revlimid since he has no evidence of M spike on his most recent serum protein electrophoresis or serum or urine immunofixation. [place]/lambda light chain ratio continues to decline to now 1.31 (normal). Due to his recent anemia we will hold his Revlimid another month and repeathis CBC in 1 month. If hemoglobin improving, we may consider resuming his maintenance Revlimid to 5mg every other day. Next follow-up in April 2022 for repeat bone marrow biopsyin interventionalradiology for specimen to be sent for minimal residual diseasetesting. I will follow-up with him 3 weeks thereafter for review of symptoms and bone marrow results, sooner as needed. 01/02/2022: Patsy and his are here for 3 month followup visit. She raised most of the concernsregarding worsening fatigue. He has been off He underwent a painful bone marrow by CENTRIFUGAL CHILLER TECHNICIAN with Dr. Hall with nondiagnostic specimen. Dr. Hall recommended repeat bone marrow in the fall with MRD testing(we will set up with IR). I reviewed [...] 20 he was treated for UTI at [facility] ER, thenadmitted August 24 to [place] with dehydration and urosepsis with discharge August 29. 09/05/2021 followed up with for continued antibiotics with Bactrim DS. Urine also returned positive for candidiasis and he was treated with fluconazole daily. He stopped his hydralazine and Lasix. --09/17/2021: He returned for labs and skeletal survey at [facility] and his potassium on blood work was markedly elevated. We contacted him and advised ER evaluation at [facility]. His potassium returned at 7.3 and he required hydration, calcium gluconate, insulin with bicarb, and had a negative Covid test. He was admitted and had unremarkable renal ultrasound, transfused 1 unit of blood for hemoglobin 7.3. Potassium and creatinine normalized and he was discharged home on 09/19/2021. Since that time he has had some improvement of energy but still haspoor appetite and mild weakness. No fever, chills, or sweats. I will have him follow-up with nephrology and Dr. Ochoa for management of his potassium and creatinine. [...] due for follow-up with Dr. Hall at [facility] hematology in late October for 1 year [...] for post transplant vaccines. Stable kappa/lambda ratio--no M- spike serum and urine testing. Quant immunoglobulins normal. I will f/u with myeloma labs in 3 months--CBC, CMP, SPEP, quant IGs, kappa/lambda light chains and beta2 microglobulin. He and his are in agreement with this plan. 11/26/2020: Patsy is here for followup after D86 bone marrow biopsy at [facility] on 10/18/2020. No evidence of MRD--0.5% plasma cells andno clonal plasma cells suggestive of residual myeloma. Tolerating maintenance Revlimid 5mg daily well. No bone pain and normal renal function-- hasreleased for annual nephrology followup. He is fully vaccinated for [id number] and I contacted Dr. Hall for coordination [...] up for palliative consultation (previously followed by Olamide Olivia). He has a followup bone marrow [...] completed all of his pretransplant evaluation at [facility] including cardiology visit 11 9 which showed ejection fraction 60%. I have contacted Dr. Hall who noted that today will be his last day of Velcade and we will hold his daratumumab. He was to have a COVID-19 teston 07/11/2020 for planned stem cell collection 07/17 and transplant on 07/23. I clarified with the staff at [facility] this this may be performed at [facility] and forwarded to them. His neuropathy in [...] He has now hemodialysis independent after daratumumab, dexamethasone,and Velcade with addition of Revlimid. Today he reports that he has had increased neuropathy symptoms in hisbilateral hands and feet with mild interference with activity (grade 2). We discussed a 25%dose reduction of Velcade on day 1, day [...] Dr. Hall regarding end of therapy and in1 month I will see him with follow-up myeloma studies. No other new concerns today. 05/07/2020: Patsy is here for 1 month follow-up. Outpatient hemodialysis was stopped after 04/24/2020due to excellent response. He was evaluated by Dr. Small at [facility] on 04/26/2020.Angel and his note that Dr. Hall felt that he was physiologically about 8 years younger than his chronologic age and would likely be transplant eligible if pretransplant work- updeems this feasible. He recommended continuing current daratumumab [...] no toxicities of chemotherapy. He sees Dr. Ochoa for follow-up tomorrow and maintains insulin with stabilization of hisblood sugars following with diabetes management clinic. I [...] has remarkably improved (>90% reduction past month). [place] light chains decreased from 12,000 to 42. [...] response. He received his first cycle of combi nation chemotherapy 03/12/2020. --Patient tolerated initial daratumumab infusion reasonably well with brief infusion reaction (dizziness and mild wheezing) that was treated with diphenhydramine, steroids, albuterol, and Demerol forrigors. He completed remaining infusion in an outpatient bed on the inpatient hart Thursday and we ant icipate further weekly daratumumab infusions as an outpatient. [...] kappa light chains, and elevated M spike. Wediscussed in detail the pathophysiology of myeloma but she felt very anxious and overwhelmed and I r eassured her that we will readdress this at further follow-up visits. 2. Patient had a metastatic bone survey showing no areas of lytic disease or pathologic fractures. We discussed CRAB criteria for multiple myeloma diagnosisand that he meets criteria of R renal and Aanemia, but not elevated calcium or bone disease (C and B). She specifically asked is stage of multiple myeloma andwe noted that he still will require beta-2 glycoprotein (ISS) but is most consistentwith stage III. We are still awaiting his [...] could be managed byhis primary physician Dr. Ochoa and he could be referred for diabetes [...] marijuana and would discuss this with his lawn service manager whetherthis would interfere with dialysis. We will also follow closely for cytopenias and reviewed infectious precautions. He has a [facility] who plans to visit on Thursday and [...] exercise given his recentdialysis and initiation of chemotherapy.I did not specifically address his diet but he may address this with our [facility] nutrition team. He will also receivechemotherapy class with our nurses in the infusion center. PRELIMINARY HISTORY (from initial consult 03/08/2020): This is a now 77-year-old male who was transferred from [place] emergency room by [facility] due to critical potassium 8.7 with elevated creatinine 11.2 and BUN 82 on 03/04/2020. We do not have any recent blood work for comparison but hehad normal creatinine in 2011. He was urgently treated for hishyperkalemia anddialysis was arranged emergently by nephrology team. He has now stabilized on dialysis and had extensive work-up for etiology of his acute renal failure with severe anemia felt to be due to anemia of renal insufficiency. Iron studies returned normal with ferritin 160, but B12 low at84 and folate low normal at 5.2. He [...] showing labral pathology of the joint but nofracture or dislocation. Myeloma labs were sent showing [...] day 0 autologous stem cell transplant 07/25/2020at [facility]. 11/26/2020: Follow-up bone marrow aspiration and biopsy 10/18/2020 for MRD evaluation shows hypocellular marrow with 0.5% plasma cells, no clonal population by flow cytometry but 0.03% kappa light chainskewing. Started Revlimid 5 mg daily for maintenance therapy early October 2020. Nondiagnostic bone marrow for MRD in spring 2021 at . Planned follow-up bone marrow biopsy for MRD at [facility] fall 2021. -- 02/05/2022: Revlimid on hold [...] still fatigued and s/p TURP with Dr. Issa of urology at [place] 08/27/2022. 08/2022: Added Aranesp 200 mcg subcu [...] starting dialysis, chemotherapy, and transplant for light chainnephropathy. 11/2020--returned to baseline weight pretransplant. GENITOURINARY: Negative for dysuria and hematuria. Improved urinary output, diagnosed in February 2020 with renal failure requiring dialysis--off dialysis 04/24/2020. Prior nephrolithiasis previously followed by Dr. Seals--recent ESWL 01/14/2022 at [place]. Scheduled for urodynamic study at [facility] in mid January. ENDOCRINE: Negative for cold intolerance and heat intolerance. Improvement of prior hyperglycemia with home blood sugars in the 100-200s on supplemental insulin glargine. CENTRAL NERVOUS SYSTEM: Negative for gait disturbance and headache. No focal neurologic deficits orhistory of stroke. Improvement of painful sensory neuropathy [...] pen (Lantus Solostar U-100 Insulin) 25 unit subcutDAILY 04/27/20 [History Confirmed 01/22/23] insulin lispro 100 unit/mL subcutaneous pen (Humalog KwikPen (U-100) Insulin) 6 - 16 unit subcut ASDIRECTED 04/27/20 [History Confirmed 01/22/23] atorvastatin 20 mg [...] Sodium 140, Potassium 4.3, Chloride 107, Carbon Kjudkxy38.4, Anion Gap 10.9, BUN 19, Creatinine 1.52 H, Est GFR (CKD-EPI) 46.902, Glucose 216 H, Calcium 8.4 L, Total Bilirubin 0.5, AST 16, ALT16, Alkaline Phosphatase 87, Total Protein 6.0 L, Albumin 4.1,Globulin 1.9, Albumin/Globulin Ratio 2.2 01/22/23 11:45: Corrected WBC 5.0, Uncorrected WBC Count 5.0, RBC 2.61 L, Hgb 9.7 L, Hct 28.4 L, MCV 108.9 H, MCH 37.3 H, MCHC 34.3, RDW 16.3 H, Plt Count 112L, MPV 9.8, Neut % (Auto) 72.9, Lymph % (Auto) 17.1, Randolph % (Auto) 6.4, Eos % (Auto) 3.3, Baso % (Auto) 0.3, Nucleat RBC Rel Count 0.0, Neut # (Auto) 3.6, Lymph # (Auto) 0.9 L, Randolph # (Auto) 0.3, Eos # (Auto) 0.2, Baso # (Auto) 0.0 - Impressions BILATERAL RENAL AND BLADDER ULTRASOUND CLINICAL HISTORY: History of right-sided hydronephrosis and kidney stones. COMPARISON: Renal ultrasound 12/01/2022 Estimation of renal size is approximately 10.53 cm on the right and 10.72 cm onthe left. No contourdeforming mass, shadowing stone or hydronephrosis. The urinary bladder demonstrates Gunn decompression. US/US renal BI IMPRESSION: INTERVAL RESOLUTION OF THE RIGHT-SIDED HYDRONEPHROSIS SINCE THE PRIOR ULTRASOUNDSTUDY. 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 I reviewed his case with Dr. Quique Hlal of Malignant Hematology--added Revlimid 5mg qod following [...] week to review results as well as evaluationwith Dr. Hall for possible stem cell transplant. 06/04/2020: Tolerating chemotherapy well other than increasing neuropathy of hands and feet. Dose reduced Velcade by 25% next cycle. Added daily ferrous sulfate. --He was referred to diabetes management clinic and sees Dr. Ochoa with regularfollow-up by Dr. Rahman since he [...] chain nephropathy. Melphalan 100mg/m2 + ASCT Day . 11/26/2020: Followup of [facility] end of therapy bone marrow biopsy 10/18/2020--no minimal residual disease. Started Revlimid maintenance 5mg daily in early October2020. 02/27/2021: No new symptoms other than rash. Slow improvement of neuropathy--titrating off gabapentin with palliative medicine. Benadryl for rash. Continue Revlimid 5mg daily. He will be due for firstpost transplant vaccines sooner--will check schedule with . [...] function is actually improved from prior values withcreatinine clearance of 50. We sent serum iron [...] kappa/lambda light chain ratio. MRD testing at [facility] was nondiagnostic and he will have repeat bone marrow biopsy here with me to send MRD testing. Next followup with me in 3 months for exam and f/u myeloma labs. We will coordinate his bone marrowbiopsy at that time. He will continue follow-up [...] be scheduled for MRD bone marrow at [facility] interventional radiology in April 2022, then follow-up with me with reviewof myeloma labs 3 months after this procedure. He still has undetectablemonoclonal spike and normalkappa/lambda light chain ratio on most recent labs. Renal function is improving since ESWL at [place] in late December. 05/23/2022: No new issues, [...] and increased urine frequency despite recent Urolift procedure.Intolerant of Myrbetriq. Clonoseq reveals no clonal tumor cells. Recommend holding Revlimid 1 monthfor cytopenias and persistent fatigue due to quality of life concerns. He will followup with Dr. Hall next week to discuss holding Revlimid. If symptoms improved at one month followup with C[employer]UG[employer] CHILLER TECHNICIAN, he will followup with me in one month with CBC, CMP, SPEP for monoclonal spike and kappa/lambda light chain ratio. 07/28/2022: Patsy is here for interval 1 month follow up; not much gear changer the past 1 month - of note, patient was taken off Revlimid on 06/27/2022 visit due to profound fatigue and no evidence of on recent Clonoseq testing. His primary complaint is urinary symptoms and increased urinary frequency - not sleeping well due to waking up frequently with urination. He is planning on undergoing TURP with Dr. Issa this 07/31/2022. He is still fatigued, still not much energy or appetite;but overall no significant changes. He saw Dr. Hall on 07/03/2022 and his note was reviewed. He mentioned that it would bebeneficial for patient to continue Revlimid if able; he was also taken off Ac yclovir and advised to follow up with Dr. [...] symptoms have improved since TURP with Dr. Issa 06/27/2023. No evidence of infection on urinalysis. Fatigue is slowly improving off Revlimid the last 2 months. He does have persistent anemia with hemoglobin 8.1, persistent macrocytosis. I am rechecking his methylmalonic acid and homocystine as he is on monthly parenteral B12 but we mayneed to give himfurther loading doses over the next 8 weeks [...] monoclonal spike, quantitative immunoglobulins, and kappa/lambda light chainratioto 4 months or sooner as needed. The [...] kidney disease he should continue Aranesp therapy andwe will hold if hemoglobin greater than 10. [...] we may continue to hold Revlimid and followevery 3 months. -- Slowly improving symptoms off Revlimid x 2 months, however anemia is slightlyworse with hemoglobin 8.1. -- 01/22/2023: We previously prescribed Aranesp 200 mcg subcu every 2 weeks due tonormal B12, folate,and iron stores. Erythropoietin level returned less than 500 which made him eligible for Aranesp for anemia of chronic kidney disease. Current hemoglobin is 9.7 and he should receive Aranesp and holdfor hemoglobin greater than 10. We will continue off Revlimid until recurrent M spike or detectableclonal tumor cells. (3) History of hemodialysis Initiated inpatient hemodialysis 02/2020, then transitioned to outpatient hemodialysis 3 times weekly Thursday//Thursday schedule. Chemotherapy given Thursday/. I explained to patient andhis that with light chain nephropathy once we have reduction of light chains, we hoped to reverse his renal failure and potentially he may stop dialysis in the future (likely over several months). He was actually able to stop dialysis within 2 months with the last session 04/24/2020 as noted above. Nearly 3 years after Melphalan 100mg/m2 + autologous PBSCT given his significantresponse to initialmyeloma directed therapy. Continued f/u with nephrology for stage III chronic kidney disease/resolved hyperkalemia. (4) Steroid-induced diabetes mellitus Qualifiers: Encounter type: subsequent encounter Qualified Code(s): E09.9 - Drug or chemical induced diabetes mellitus without complications; T38.0X5D - Adverse effect of glucocorticoids and synthetic analogues,subsequent encounter Patsy had an excellent response of light chains but was noted to have significant hyperglycemia 300-500 fasting blood sugars. He was referred to diabetes management clinic with addition of insulin therapy that has significantly improved control of his blood sugars. Patient also had remarked on some blurred vision that improved with control of blood sugars. Continue follow- up of blood sugars during admission for transplant in early July. 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 Resumed low dose metformin and titrating downinsulin--directed by his primary physician. Recent injection (likely [...] vitamin D2 therapy 50,000 units orally for low25 hydroxy vitamin D stores. He may take supplemental calcium once daily. -- 09/03/2022: Repeat methylmalonic acid, homocystine returned normal. We will continue monthly B12 but may need further loading doses in the future if worsening anemia (6) Urinary incontinence Patient had prior UroLift procedure and [facility]. We will continue to follow at future visits. (7) Encounter for coordination of complex care Started cycle 1 day 1 03/12/2020: Daratumumab 16 mg/kg IV weekly, bortezomib 1.3 mg/kg subcu twice weekly, dexamethasone 40 mg weekly. We added Revlimid 5 mg every other day of each 21-day cycle with cycle 2 due to excellent reductionof kappa light chains (recommended by Dr. Hall malignanthematology). 06/04/2020: 25% DR Tenisha (100% all other meds) due to worsening neuropathy. Last dose of bortezomib 07/02/2020 and holding daratumumab per request of Dr. Hall. 07/25/2020: Melphalan 100mg/m2 + autologous PBSCT 10/18/2020: Started Revlimid 5 mg daily maintenance after bone marrow biopsy negative for MRD. RepeatMRD bone marrow at [facility] in 3 months because spring 2021 bone [...] interval 1 month follow up; not much gear changer the past 1 month - of note, patient was taken off Revlimid on 06/27/2022 visit due to profound fatigue and no evidence of on recent Clonoseq testing. - planning to hold Revlimid with pending urology procedure for additional month;reviewed Dr. Hall's note from 07/03/2022; he mentioned it would be beneficial for patient to continue Revlimid if able- possibly at lower dose of 2.5 mg[address] at next follow up visit with labs in 1 month. 09/03/2022, 01/22/2023: Continue to hold Revlimid; added Aranesp 200 mcg subcu every 2 weeks as neededfor hemoglobin less than 10 after anemia work-up [...] due to persistent anemia. Continue tohold until recurrentM spike, symptoms, or clonal population on peripheral [...] for coordination of care (as documented) and [id number] counseling of patient and/or family. Dictated By: Brook Huddleston MD DD/ [id number] Signed By: <Electronically signed by MD Brook Huddleston> 01/23/23 [address] [facility] Work Phone: [phone]) 172-130106-05-2023 History of Present illness Narrative* Samir Aparicio MD - 01/19/2023 1:30 PM EDT VIRTUAL VISIT FOLLOW UP PATIENT: Patsy Mills [id number] 01/19/2023 I have communicated my name and active licensure. The patient's identity and physical location wereverified at the time of this visit. Either the patient or their legal novelties sales representative has been informed of the risks and benefits of -- and alternatives to -- treatment through a remote evaluation andconsents to proceed with the evaluation remotely. This is a virtual visit using [email or web address] video visit. It required patient-provider interaction for [...] prostate cancer identified - on active surveillance ([place] 3+4, chips involved. PSA 1.5) 10/2022- UDS at [facility]:42ml voided, Qmax 5ml/s, maximum detrusor recording [...] which included preparing to see the patient, [id number] patient care, completing clinical documentation, obtaining and/or reviewing separately obtained history, performing a medically appropriate examination, and counseling and educating the patient/family/caregiver. Samir Aparicio MD Urologic Staff [facility] documented in this encounterMemorial [facility]05-31-2023 Evaluation note* Encounter Date Diagnosis Assessment Notes Treatment Notes Treatment Clinical Notes December, Hypophosphatemia (ICD-10 - E83.3 9) December,Hypertensive chronic kidney disease w stg 1-4/unsp chr kdny (ICD-10 - I12.9) YYzhaoche Other [id number] Evaluation note* Encounter Date Diagnosis Assessment Notes Treatment Notes Treatment Clinical Notes December, Hypertensive chronic kidney disease w stg 1-4/unsp chr kdny (ICD-10 - I12.9) Blood pressure is well controlled. Patient is off hydralazine. He is not on DAMON or ARB.he has proteinuria. 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 kidney function is at baseline. Pro/Cr 800 mg/g currently off ACEI/ARB. will start lisinopril DM is better controlled. I explained the patient the necessity of keeping diabetes well controlled to attenuate CKD progression Pressure well controlled no need for diuretics. No need for blood pressure medications. Avoid NSAIDs Follow-up in 6 months December,HTN (hypertension) (ICD-10 - I10)Blood pressures well controlled.will add lisinopril for proteinuria No need for diuretics or blood p ressure medication December,Multiple myeloma (ICD-10 - C90.00)Patient was diagnosed with multiple myeloma on March 04, 2020. He has a good response to chemotherapy. He had stem cell transplant at on July 23, 2020. Patient follows locally with Dr. Rosenberg. Currently off Revlimid December,iabetes mellitus (ICD-10 - E11.9)Needs better control of diabetes to attenuate chronic kidney disease progression. Hemoglobin A1c target below 7%. I explained the patient the necessity of keeping diabetes under good control to preserve kidney function December,Nephrolithiasis (ICD-10 - N20.0)Patient had history of nephrolithiasis. No more kidney stone since December,nemia, unspecified type (ICD-10 - D64.9)Patient received 2 units of RBCs transfusion in 2021 for hemoglobin 6.9 g deciliter. Currently follow with Dr. Huddleston he is on Aranesp. Hemoglobin is improving December,Hyperkalemia (ICD-10 - E87.5)Patient had RINA with hyperkalemia in August 2021. Hyperkalemia was likely from RINA and being on potassium supplement. This was treated medically. Potassium remained within normal limit. will re check K next visit December,Hydronephrosis, unspecified hydronephrosis type (ICD-10 - N13.30) this has resolved. he has gunn cath and right stent placed . he has follow up with Dr. Mercado December,Hypophosphatemia (ICD-10 - E83.39)will start supplement. will re check Phos next visit [facility] Other [id number] Hospital Discharge instructions Patient Education 12/19/2022 09:55:29 [...] transplant. Follow these instructions at home: Take xqgi-abs-ihkfstg and prescription medicines only as told by [...] provider. Document Revised: 11/20/2020 Document Reviewed: 11/20/2020 [employer] Patient Education 2022 [employer]. Follow Up Care 12/11/2022 13:21:04 With:Diego RICKS, OUSMANE Bell, URO Address: When: Unknown [facility] 04-21-2023 Hospital Discharge instructions Patient [...] under a microscope. This is called the [place] score and the total score can range [...] stress of having cancer. General instructions Take heol-myd-ejrimit and prescription medicines only as told by your health care provider. If you have to go to the hospital, notify your cancer specialist (oncologist). Keep all follow-up visits. This is important. Where to find more information [place] [employer]: www.cancer.org [place] [employer] On[employer]: www.cancer.net National Cancer Agency: www.cancer.gov Contact a health care provider if: [...] provider. Document Revised: 10/30/2021 Document Reviewed: 10/30/2021 [employer] Patient Education 2022 [employer]. Follow Up Care 12/03/2022 13:58:34 With:Diego RICKS, OUSMANE Bell, URO Address: [address] [place] [address]- [phone] When: Unknown [facility] 03-20-2023 Hospital Discharge instructions Patient Education [...] who: Are older than age 65. Are -[place]. Are obese. Have a family history of [...] cells. Follow these instructions at home: Take wgpv-wmc-ucgvbnp and prescription medicines only as told by [...] 08/03/2006 Document Revised: 07/16/2018 Document Reviewed: 04/13/2017 [employer] Patient Education 2020 [employer]. Follow Up Care 10/21/2022 07:54:56 With:Diego RICKS, OUSMANE Bell, URO Address: When: Unknown [facility] 03-02-2023 Hospital Discharge instructions Patient Education [...] transplant. Follow these instructions at home: Take lvgg-wkm-yhdukki and prescription medicines only as told by [...] 05/30/2008 Document Revised: 08/14/2018 Document Reviewed: 08/14/2018 [employer] Patient Education 2020 [employer]. Follow Up Care 10/15/2022 08:06:04 With:Diego RICKS, Orquidea Taylor, URL, URO Address: When: Unknown [facility] 02-01-2023 Progress note Author Brook Huddleston [facility] September 17, 2022 1:35pmNote Date/TimeJanuary 2022 8:57[facility] [place] [address] Hem/Onc Follow Up Note - OP Signed with Addenda Patient: Patsy Mills MR#: [id number] : 1945 Acct:[id number] Age/Sex: 77 / M Type: REG RCR [...] falls. [facility] some improvement of his urinary [...] interval 1 month follow up; not much gear changer the past 1 month - of note, patient was taken off Revlimid on 06/27/2022 visit due to profound fatigue and no evidence of on recent Clonoseq testing. His primary complaint is urinary symptoms and increased urinary frequency - not sleeping well due to waking up frequently with urination. He is planning on undergoing TURP with Dr. Issa this 07/31/2022. He is still fatigued, still not much energy or appetite;but overall no significant changes. He saw Dr. Hall on 07/03/2022 and his note was reviewed. He mentioned that it would bebeneficial for patient to continue Revlimid if able; he was also taken off Ac yclovir and advised to follow up with Dr. Hall in 1 year with MRD testing. 06/27/2022: Patsy is here for followup to review Clonoseq testing that was still pending at last visit. He continues to have increased urine frequency andincontinence after prior Urolift surgery. Hewas given Mybetriq to manage urinefrequency but notes this was not well tolerated due to mouth sores, diarrhea, and headaches which improved after stopping the medication. No other concerningsymptomsalthough he has persistent fatigue and is frustrated with his quality of life. His Clonoseq returned at zero clonal cells. We noted since he has no evidence of disease in marrow and decreased qualityof life, he will hold Revlimid x 1 month to see if symptoms improve. One month followup with C[employer]UG[employer] CHILLER TECHNICIAN to navarro durbinw labs and symptoms. He also has followup with Dr. Hall in one week and will inform him of plan for one month off Revlimid. He also may seek Urology second opinion. 05/23/2022: Noted to have Urolift procedure at [facility] last month, noted increased post-op painthat is slowly improving. On 05/16 he had [...] bone marrow aspirate alone in clinic today tosend for MRD testing. Other labs are stable--we [...] of kidney stone by Dr. Seals at [place] on 01/14/2022 without complications. Sent off Revlimid since December 12, 2021 due to cytopenias. Otherwise no changes in clinical history. He is due for his second shingles shot and since he is otherwise stable with norecent infections he can receive his second dose. He did require transfusion of 2 units packed red blood cells for hemoglobin 6.7 on 01/23/2022. Hemoglobin has now improved to normal methylmalonic acidand homocystine, elevated iron saturation 72% and ferritin elevated to 663. Erythropoietin level was also elevated to 547.7 so he is not a candidate for erythrocyte stimulating agents. At this time Pradeep continue to hold Revlimid since he has no evidence of M spike on his most recent serum protein electrophoresis or serum or urine immunofixation. [place]/lambda light chain ratio continues to decline to now 1.31 (normal). Due to his recent anemia we will hold his Revlimid another month and repeathis CBC in 1 month. If hemoglobin improving, we may consider resuming his maintenance Revlimid to 5mg every other day. Next follow-up in April 2022 for repeat bone marrow biopsyin interventionalradiology for specimen to be sent for minimal residual diseasetesting. I will follow-up with him 3 weeks thereafter for review of symptoms and bone marrow results, sooner as needed. 01/02/2022: Patsy and his are here for 3 month followup visit. She raised most of the concernsregarding worsening fatigue. He has been off He underwent a painful bone marrow by [employer]UG[employer] CHILLER TECHNICIAN with Dr. Hall with nondiagnostic specimen. Dr. Hall recommended repeat bone marrow in the fall with MRD testing(we will set up with IR). I reviewed his f/u monoclonal gammopathy testing showing asymmetric gamma but no M-spike. Normal kappa/lambda light chain ratio. Hemoglobin declined to 8--elevated iron saturation and ferritin. I will check methylmalonic acid and homocysteine, erythropoietin, and may consider adding erythropoietin. Continue f/u with Dr. rCain. 10/03/2021: Patsy is here for 4-month follow-up of light chain myeloma. His brought me a thorough list of his recent hospitalizations since early August 2021. Recurrent weakness and dizziness as per chief complaint. --August 20 he was treated for UTI at [facility] ER, thenadmitted August 24 to [place] with dehydration and urosepsis with discharge August 29. 09/05/2021 followed up with for continued antibiotics with Bactrim DS. Urine also returned positive for candidiasis and he was treated with fluconazole daily. He stopped his hydralazine and Lasix. --09/17/2021: He returned for labs and skeletal survey at [facility] and his potassium on blood work was markedly elevated. We contacted him and advised ER evaluation at [facility]. His potassium returned at 7.3 and he required hydration, calcium gluconate, insulin with bicarb, and had a negative Covid test. He was admitted and had unremarkable renal ultrasound, transfused 1 unit of blood for hemoglobin 7.3. Potassium and creatinine normalized and he was discharged home on 09/19/2021. Since that time he has had some improvement of energy but still haspoor appetite and mild weakness. No fever, chills, or sweats. I will have him follow-up with nephrology and Dr. Ochoa for management of his potassium and creatinine. [...] due for follow-up with Dr. Hall at [facility] malignant hematology in late [...] for post transplant vaccines. Stable kappa/lambda ratio--no M- spike serum and urine testing. Quant immunoglobulins normal. I will f/u with myeloma labs in 3 months--CBC, CMP, SPEP, quant IGs, kappa/lambda lightchains and beta2 microglobulin. He and his are in agreement with this plan. 11/26/2020: Patsy is here for followup after D86 bone marrow biopsy at [facility] on 10/18/2020. No evidence of MRD--0.5% plasma cells andno clonal plasma cells suggestive of residual myeloma. Tolerating maintenance Revlimid 5mg daily well. No bone pain and normal renal function-- hasreleased for annual nephrology followup. He is fully vaccinated for [id number] and I contacted Dr. Hall for coordination [...] up for palliative consultation (previously followed by Olamide Olivia). He has a followup bone marrow [...] completed all of his pretransplant evaluation at [facility] including cardiology visit 11 which showed ejection fraction 60%. I have contacted Dr. Hall who noted that today will be his last day of Velcadeand we will hold his daratumumab. He was to have a COVID-19test on 07/11/2020 for planned stem cell collection 07/17 and transplant on 07/23. I clarified with the staff at [facility] this this may be performed at [facility] and forwarded to them. 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 His pain mainly inhips is about 3 out of 10 and [...] He has now hemodialysis independent after daratumumab, dexamethasone,and Velcade with addition of Revlimid. Today he reports that he has had increased neuropathy symptoms in hisbilateral hands and feet with mild interference with activity (grade 2). We discussed a 25%dose reduction of Velcade on day 1, day [...] Dr. Hall regarding end of therapy and in1 month I will see him with follow-up myeloma studies. No other new concerns today. 05/07/2020: Patsy is here for 1 month follow-up. Outpatient hemodialysis was stopped after 04/24/2020due to excellent response. He was evaluated by Dr. Small at [facility] on 04/26/2020.Angel and his note that Dr. Hall felt that he was physiologically about 8 years younger than his chronologic age and would likely be transplant eligible if pretransplant work- updeems this feasible. He recommended continuing current daratumumab [...] no toxicities of chemotherapy. He sees Dr. Ochoa for follow-up tomorrow and maintains insulin with stabilization of hisblood sugars following with diabetes management clinic. I [...] has remarkably improved (>90% reduction past month). [place] light chains decreased from 12,000 to 42. [...] response. He received his first cycle of combi nation chemotherapy 03/12/2020. --Patient tolerated initial daratumumab infusion reasonably well with brief infusion reaction (dizziness and mild wheezing) that was treated with diphenhydramine, steroids, albuterol, and Demerol forrigors. He completed remaining infusion in an outpatient bed on the inpatient hart Thursday and we ant icipate further weekly daratumumab infusions as an outpatient. [...] kappa light chains, and elevated M spike. Wediscussed in detail the pathophysiology of myeloma but she felt very anxious and overwhelmed and I r eassured her that we will readdress this at further follow-up visits. 2. Patient had a metastatic bone survey showing no areas of lytic disease or pathologic fractures. We discussed CRAB criteria for multiple myeloma diagnosisand that he meets criteria of R renal and Aanemia, but not elevated calcium or bone disease (C and B). She specifically asked is stage of multiple myeloma andwe noted that he still will require beta-2 glycoprotein (ISS) but is most consistentwith stage III. We are still awaiting his [...] could be managed byhis primary physician Dr. Ochoa and he could be referred for diabetes [...] marijuana and would discuss this with his lawn service manager whetherthis would interfere with dialysis. We will also follow closely for cytopenias and reviewed infectious precautions. He has a [facility] who plans to visit on Thursday and [...] exercise given his recentdialysis and initiation of chemotherapy.I did not specifically address his diet but he may address this with our [facility] nutrition team. He will also receivechemotherapy class with our nurses in the infusion center. PRELIMINARY HISTORY (from initial consult 03/08/2020): This is a now 77-year-old male who was transferred from [place] emergency room by [facility] due to critical potassium 8.7 with elevated creatinine 11.2 and BUN 82 on 03/04/2020. We do not have any recent blood work for comparison but hehad normal creatinine in 2011. He was urgently treated for hishyperkalemia anddialysis was arranged emergently by nephrology team. He has now stabilized on dialysis and had extensive work-up for etiology of his acute renal failure with severe anemia felt to be due to anemia of renal insufficiency. Iron studies returned normal with ferritin 160, but B12 low at84 and folate low normal at 5.2. He [...] showing labral pathology of the joint but nofracture or dislocation. Myeloma labs were sent showing [...] to be coordinated with nursing staffdue to [facility]-19 visitor restriction policy. - Summary of Therapies [...] day 0 autologous stem cell transplant 07/25/2020at [facility]. 11/26/2020: Follow-up bone marrow aspiration and biopsy 10/18/2020 for MRD evaluation shows hypocellular marrow with 0.5% plasma cells, no clonal population by flow cytometry but 0.03% kappa light chainskewing. Started Revlimid 5 mg daily for maintenance therapy early October 2020. Nondiagnostic bone marrow for MRD in spring 2021 at . Planned follow-up bone marrow biopsy for MRD at [facility] fall 2021. -- 02/05/2022: Revlimid on hold [...] still fatigued and s/p TURP with Dr. Issa of urology at [place] 08/27/2022. ROS Details: All systems reviewed & [...] starting dialysis, chemotherapy, and transplant for light chainnephropathy. 11/2020--returned to baseline weight pretransplant. GENITOURINARY: Negative for dysuria and hematuria. Improved urinary output, diagnosed in February 2020 with renal failure requiring dialysis--off dialysis 04/24/2020. Prior nephrolithiasis previously followed by Dr. Seals--recent ESWL 01/14/2022 at [place]. ENDOCRINE: Negative for cold intolerance and heat intolerance. Improvement of prior hyperglycemia with home blood sugars in the 100-200s on supplemental insulin glargine. CENTRAL NERVOUS SYSTEM: Negative for gait disturbance and headache. No focal neurologic deficits orhistory of stroke. Improvement of painful sensory neuropathy [...] Negative for environmental allergies and food allergies. [facility] - History Attestation statement: The [...] pen (Lantus Solostar U-100 Insulin) 25 unit subcutDAILY 04/27/20 [History Confirmed 09/03/22] insulin lispro 100 unit/mL subcutaneous pen (Humalog KwikPen (U-100) Insulin) 6 - 16 unit subcut ASDIRECTED 04/27/20 [History Confirmed 09/03/22] atorvastatin 20 mg [...] October 2021, repeat MRD bone marrow at [facility] April 2022, MRD aspirate sent 05/23/2022--Clonoseq returned [...] first cycle Daratumumab, Velcade, and dexamethasone on 03/12/2020--otherthan infusion reaction from first Daratumumab, improved withsymptomatic [...] week to review results as well as evaluationwith Dr. Hall for possible stem cell transplant. 06/04/2020: Tolerating chemotherapy well other than increasing neuropathy of hands and feet. Dose reduced Velcade by 25% next cycle. Added daily ferrous sulfate. --He was referred to diabetes management clinic and sees Dr. Ochoa with regularfollow-up by Dr. Rahman since he [...] chain nephropathy. Melphalan 100mg/m2 + ASCT Day . 11/26/2020: Followup of [facility] end of therapy bone marrow biopsy 10/18/2020--no minimal residual disease. Started Revlimid maintenance 5mg daily in early October2020. 02/27/2021: No new symptoms other than rash. Slow improvement of neuropathy--titrating off gabapentin with palliative medicine. Benadryl for rash. Continue Revlimid 5mg daily. He will be due for firstpost transplant vaccines sooner--will check schedule with . [...] function is actually improved from prior values withcreatinine clearance of 50. We sent serum iron [...] kappa/lambda light chain ratio. MRD testing at [facility] was nondiagnostic and he will have repeat bone marrow biopsy here with me to send MRD testing. Next followup with me in 3 months for exam and f/u myeloma labs. We will coordinate his bone marrowbiopsy at that time. He will continue follow-up [...] be scheduled for MRD bone marrow at [facility] interventional radiology in April 2022, then follow-up with me with review of myeloma labs 3 months after this procedure. He still has undetectablemonoclonal spike and normal kappa/lambda light chain ratio on most recent labs. Renal function is improving since ESWL at [place] in late December. 05/23/2022: No new issues, [...] and increased urine frequency despite recent Urolift procedure.Intolerant of Myrbetriq. Clonoseq reveals no clonal tumor cells. Recommend holding Revlimid 1 monthfor cytopenias and persistent fatigue due to quality of life concerns. He will followup with Dr. Hall next week to discuss holding Revlimid. If symptoms improved at one month followup with [employer] CH[employer]ER TECHNICIAN, he will followup with me in one month with CBC, CMP, SPEP for monoclonal spike and kappa/lambda light chain ratio. 07/28/2022: Patsy is here for interval 1 month follow up; not much gear changer the past 1 month - of note, patient was taken off Revlimid on 06/27/2022 visit due to profound fatigue and no evidence of on recent Clonoseq testing. His primary complaint is urinary symptoms and increased urinary frequency - not sleeping well due to waking up frequently with urination. He is planning on undergoing TURP with Dr. Issa this 07/31/2022. He is still fatigued, still not much energy or appetite;but overall no significant changes. He saw Dr. Hall on 07/03/2022 and his note was reviewed. He mentioned that it would bebeneficial for patient to continue Revlimid if able; he was also taken off Ac yclovir and advised to follow up with Dr. [...] symptoms have improved since TURP with Dr. Issa 06/27/2023. No evidence of infection on urinalysis. Fatigue is slowly improving off Revlimid the last 2 months. He does have persistent anemia with hemoglobin 8.1, persistent macrocytosis. I am rechecking his methylmalonic acid and homocystine as he is on monthly parenteral B12 but we mayneed to give himfurther loading doses over the next 8 weeks [...] spike, quantitative immunoglobulins, and kappa/lamda light chain ratioto 4 months or sooner as needed. The [...] we may continue to hold Revlimid and followevery 3 months. -- Slowly improving symptoms off [...] Chemotherapy given Thursday/. I explained to patient andhis that with light chain nephropathy once we [...] - Adverse effect of glucocorticoids and synthetic analogues,subsequent encounter Patsy had an excellent response of light chains but was noted to have significant hyperglycemia 300-500 fasting blood sugars. He was referred to diabetesmanagement clinic with addition of insulin therapy that has significantly improved control of his blood sugars. Patient also had remarked on someblurredvision that improved with control of blood sugars. Continue follow-up of blood sugars duringadmission for transplant in early July. 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 Resumed low dose metformin and titrating downinsulin--directed by his primary physician. Recent injection (likely [...] vitamin D2 therapy 50,000 units orally for low25 hydroxy vitamin D stores. He may take [...] cycle with cycle 2 due to excellent reductionof kappa light chains (recommended by Dr. Hall malignanthematology). 06/04/2020: 25% DR Bortezomib (100% all other meds) due to worsening neuropathy. Last dose of bortezomib 07/02/2020 and holding daratumumab per request of Dr. Hall. 07/25/2020: Melphalan 100mg/m2 + autologous PBSCT 10/18/2020: Started Revlimid 5 mg daily maintenance after bone marrow biopsy negative for MRD. RepeatMRD bone marrow at [facility] in 3 months because spring 2021 bone [...] interval 1 month follow up; not much gear changer the past 1 month - of note, patient was taken off Revlimid on 06/27/2022 visit due to profound fatigue and no evidence of on recent Clonoseq testing. - planning to hold Revlimid with pending urology procedure for additional month;reviewed Dr. Hall's note from 07/03/2022; he mentioned it would be beneficial for patient to continue Revlimid if able- possibly at lower dose of 2.5 mg. [...] for coordination of care (as documented) and [id number] counseling of patient and/or family. Dictated By: Brook Huddleston MD DD/ [id number] Signed By: <Electronically signed by MD Brook Huddleston> 09/03/22 0925 [facility] Work Phone: [phone]) 129-802001-12-2023 Hospital Discharge instructions Follow Up Care 08/28/2022 09:22:13 With:Diego RICKS, Orquidea Taylor, OUSMANE, URO Address: When:09/18/2022 11:27:00 Comments:Review TURP path [facility] 01-09-2023 Evaluation + Plan note Diagnostic Tests Pending * Urine Culture 08/25/22 [facility]12-12-2022 Progress note Author Rosie Chew [facility] July 28, 2022 10:58amNote Date/TimeDecemb2021 10:45[facility] at [address] [address] Hem/Onc Follow Up Note - OP Signed Patient: Patsy Mills MR#: [id number] : 1945 Acct:[id number] Age/Sex: 77 / M Type: REG RCR Copies to: Helen Ochoa MD~ Subjective Date/Time of Service: Date of Service: 07/28/2022 Time of Service: 10:44 Chief Complaint: Patient is here today for one month follow up visit and go overlabs HPI: 07/28/2022: Patsy is here for interval 1 month follow up; not much gear changer the past 1 month - of note, [...] still fatigued, still not much energy or appetite;but overall no significant changes. He saw Dr. Hall on 07/03/2022 and his note was reviewed. He mentioned that it would bebeneficial for patient to continue Revlimid if able; he was also taken off Ac yclovir and advised to follow up with Dr. Hall in 1 year with MRD testing. 06/27/2022: Patsy is here for followup to review Clonoseq testing that was still pending at last visit. He continues to have increased urine frequency andincontinence after prior Urolift surgery. Hewas given Mybetriq to manage urinefrequency but notes this was not well tolerated due to mouth sores, diarrhea, and headaches which improved after stopping the medication. No other concerningsymptomsalthough he has persistent fatigue and is frustrated with his quality of life. His Clonoseq returned at zero clonal cells. We noted since he has no evidence of disease in marrow and decreased qualityof life, he will hold Revlimid x 1 month to see if symptoms improve. One month followup with CENTRIFUGAL CHILLER TECHNICIAN to navarro durbinw labs and symptoms. He also has followup with Dr. Hall in one week and will inform him of plan for one month off Revlimid. He also may seek Urology second opinion. 05/23/2022: Noted to have Urolift procedure at [facility] last month, noted increased post-op painthat is slowly improving. On 05/16 he had [...] bone marrow aspirate alone in clinic today tosend for MRD testing. Other labs are stable--we [...] of kidney stone by Dr. Seals at [place] on 01/14/2022 without complications. Sent off Revlimid since December 12, 2021 due to cytopenias. Otherwise no changes in clinical history. He is due for his second shingles shot and since he is otherwise stable with norecent infections he can receive his second dose. He did require transfusion of 2 units packed red blood cells for hemoglobin 6.7 on 01/23/2022. Hemoglobin has now improved to normal methylmalonic acidand homocystine, elevated iron saturation 72% and ferritin elevated to 663. Erythropoietin level was also elevated to 547.7 so he is not a candidate for erythrocyte stimulating agents. At this time Iwill continue to hold Revlimid since he has no evidence of M spike on his most recent serum protein electrophoresis or serum or urine immunofixation. [place]/lambda light chain ratio continues to decline to now 1.31 (normal). Due to his recent anemia we will hold his Revlimid another month and repeathis CBC in 1 month. If hemoglobin improving, we may consider resuming his maintenance Revlimid to 5mg every other day. Next follow-up in April 2022 for repeat bone marrow biopsyin interventionalradiology for specimen to be sent for minimal residual diseasetesting. I will follow-up with him 3 weeks thereafter for review of symptoms and bone marrow results, sooner as needed. 01/02/2022: Patsy and his are here for 3 month followup visit. She raised most of the concernsregarding worsening fatigue. He has been off He underwent a painful bone marrow by CENTRIFUGAL CHILLER TECHNICIAN with Dr. Hall with nondiagnostic specimen. Dr. Hall recommended repeat bone marrow in the fall with MRD testing(we will set up with IR). I reviewed [...] 20 he was treated for UTI at [facility] ER, thenadmitted August 24 to [place] with dehydration and urosepsis with discharge August 29. 09/05/2021 followed up with for continued antibiotics with Bactrim DS. Urine also returned positive for candidiasis and he was treated with fluconazole daily. He stopped his hydralazine and Lasix. --09/17/2021: He returned for labs and skeletal survey at [facility] and his potassium on blood work was markedly elevated. We contacted him and advised ER evaluation at [facility]. His potassium returned at 7.3 and he required hydration, calcium gluconate, insulin with bicarb, and had a negative Covid test. He was admitted and had unremarkable renal ultrasound, transfused 1 unit of blood for hemoglobin 7.3. Potassium and creatinine normalized and he was discharged home on 09/19/2021. Since that time he has had some improvement of energy but still haspoor appetite and mild weakness. No fever, chills, or sweats. I will have him follow-up with nephrology and Dr. Ochoa for management of his potassium and creatinine. [...] due for follow-up with Dr. Hall at [facility] hematology in late October for 1 year [...] for post transplant vaccines. Stable kappa/lambda ratio--no M- spike serum and urine testing. Quant immunoglobulins normal. I will f/u with myeloma labs in 3 months--CBC, CMP, SPEP, quant IGs, kappa/lambda light chains and beta2 microglobulin. He and his are in agreement with this plan. 11/26/2020: Patsy is here for followup after D86 bone marrow biopsy at [facility] on 10/18/2020. No evidence of MRD--0.5% plasma cells and no clonal plasma cells suggestive of residualmyeloma. Tolerating maintenance Revlimid 5mg daily well. No bone pain and normal renal function--Dr. Vincent hasreleased for annual nephrology followup. He is fully vaccinated for [id number] and I contacted Dr. Hall for coordination [...] up for palliative consultation (previously followed by Olamide Olivia). He has a followup bone marrow [...] completed all of his pretransplant evaluation at [facility] including cardiology visit 11 9 which showed ejection fraction 60%. I have contacted Dr. Hall who noted that today will be his last day of Velcade and we will hold his daratumumab. He was to have a COVID-19 teston 07/11/2020 for planned stem cell collection 07/17 and transplant on 07/23. I clarified with the staff at [facility] this this may be performed at [facility] and forwarded to them. His neuropathy in [...] He has now hemodialysis independent after daratumumab, dexamethasone,and Velcade with addition of Revlimid. Today he reports that he has had increased neuropathy symptoms in hisbilateral hands and feet with mild interference with activity (grade 2). We discussed a 25%dose reduction of Velcade on day 1, day [...] Dr. Hall regarding end of therapy and in1 month I will see him with follow-up myeloma studies. No other new concerns today. 05/07/2020: Patsy is here for 1 month follow-up. Outpatient hemodialysis was stopped after 04/24/2020due to excellent response. He was evaluated by Dr. Small at [facility] on 04/26/2020.Angel and his note that Dr. Hall felt that he was physiologically about 8 years younger than his chronologic age and would likely be transplant eligible if pretransplant work- updeems this feasible. He recommended continuing current daratumumab [...] no toxicities of chemotherapy. He sees Dr. Ochoa for follow-up tomorrow and maintains insulin with stabilization of hisblood sugars following with diabetes management clinic. I [...] has remarkably improved (>90% reduction past month). [place] light chains decreased from 12,000 to 42. [...] response. He received his first cycle of combi nation chemotherapy 03/12/2020. --Patient tolerated initial daratumumab infusion reasonably well with brief infusion reaction (dizziness and mild wheezing) that was treated with diphenhydramine, steroids, albuterol, and Demerol forrigors. He completed remaining infusion in an outpatient bed on the inpatient hart Thursday and we ant icipate further weekly daratumumab infusions as an outpatient. [...] kappa light chains, and elevated M spike. Wediscussed in detail the pathophysiology of myeloma but she felt very anxious and overwhelmed and I r eassured her that we will readdress this at further follow-up visits. 2. Patient had a metastatic bone survey showing no areas of lytic disease or pathologic fractures. We discussed CRAB criteria for multiple myeloma diagnosisand that he meets criteria of R renal and Aanemia, but not elevated calcium or bone disease (C and B). She specifically asked is stage of multiple myeloma andwe noted that he still will require beta-2 glycoprotein (ISS) but is most consistentwith stage III. We are still awaiting his [...] could be managed byhis primary physician Dr. Ochoa and he could be referred for diabetes [...] marijuana and would discuss this with his lawn service manager whetherthis would interfere with dialysis. We will also follow closely for cytopenias and reviewed infectious precautions. He has a [facility] who plans to visit on Thursday and [...] exercise given his recentdialysis and initiation of chemotherapy.I did not specifically address his diet but he may address this with our [facility] nutrition team. He will also receivechemotherapy class with our nurses in the infusion center. PRELIMINARY HISTORY (from initial consult 03/08/2020): This is a now 77-year-old male who was transferred from [place] emergency room by [facility] due to critical potassium 8.7 with elevated creatinine 11.2 and BUN 82 on 03/04/2020. We do not have any recent blood work for comparison but hehad normal creatinine in 2011. He was urgently treated for hishyperkalemia anddialysis was arranged emergently by nephrology team. He has now stabilized on dialysis and had extensive work-up for etiology of his acute renal failure with severe anemia felt to be due to anemia of renal insufficiency. Iron studies returned normal with ferritin 160, but B12 low at84 and folate low normal at 5.2. He [...] showing labral pathology of the joint but nofracture or dislocation. Myeloma labs were sent showing [...] day 0 autologous stem cell transplant 07/25/2020at [facility]. 11/26/2020: Follow-up bone marrow aspiration and biopsy 10/18/2020 for MRD evaluation shows hypocellular marrow with 0.5% plasma cells, no clonal population by flow cytometry but 0.03% kappa light chainskewing. Started Revlimid 5 mg daily for maintenance therapy early October 2020. Nondiagnostic bone marrow for MRD in spring 2021 at . Planned follow-up bone marrow biopsy for MRD at [facility] fall 2021. -- 02/05/2022: Revlimid on hold [...] starting dialysis, chemotherapy, and transplant for light chainnephropathy. 11/2020--returned to baseline weight pretransplant. GENITOURINARY: Negative for dysuria and hematuria. Improved urinary output, diagnosed in February 2020 with renal failure requiring dialysis--off dialysis 04/24/2020. Prior nephrolithiasis previously followed by Dr. Seals--recent ESWL 01/14/2022 at [place]. ENDOCRINE: Negative for cold intolerance and heat intolerance. Improvement of prior hyperglycemia with home blood sugars in the 100-200s on supplemental insulin glargine. CENTRAL NERVOUS SYSTEM: Negative for gait disturbance and headache. No focal neurologic deficits orhistory of stroke. Improvement of painful sensory neuropathy [...] Negative for environmental allergies and food allergies. [facility] - Medical History Medical History: [...] pen (Lantus Solostar U-100 Insulin) 25 unit subcutDAILY 04/27/20 [History Confirmed 07/28/22] insulin lispro 100 unit/mL subcutaneous pen (Humalog KwikPen (U-100) Insulin) 6 - 16 unit subcut ASDIRECTED 04/27/20 [History Confirmed 07/28/22] atorvastatin 20 mg [...] 35.7, U Random Total Protein 95.7, U Vinmj-7-Yxlpjuxz (%) 6.5, U Random n-5-Xvuxdojl % 18.3, U Random b-Globulin % 20.8, U Random Gamma Glob % 18.6, U Random M-Anselmo(%) Comment:, Urine Random PEP Note 07/21/22 13:13: Serum Total Protein 5.9 L, Albumin (Send Out) 2.9, Globulin (PEP) 3.0, Albumin/Globulin (PEP) 1.0, Kglox-6-Wowgtkphc 0.4, Wsxfv-4-Mnvqgbczm 1.0, Beta Globulins 0.8, Gamma Globulins 0.8, M-Anselmo Comment:, PEP Note , IgG 905, IgA 208, IgM 24, Free [place] LC, Quant 39.4 H, Free Lambda LC, Quant 24.3, Free [place]/Lambda Ratio 1.62 07/21/22 13:13: PHA Creatinine Clear [...] H, MCHC 34.0, RDW 17.1 H, Plt Abfsf998 L, MPV 8.3, Neut % (Auto) 70.5, Lymph% (Auto) 13.1, Randolph % (Auto) 13.2, Eos% (Auto) 3.0, Baso % (Auto) 0.2, Nucleat RBC Rel Count 0.1, Neut # (Auto) 2.7, Lymph # (Auto) 0.5 L, Randolph # (Auto) 0.5, Eos # (Auto) 0.1, Baso # (Auto) 0.0 Assessment and Plan - TNM Staging Staging: 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 05/07/2020: [...] week to review results as well as evaluationwith Dr. Hall for possible stem cell transplant. 06/04/2020: Tolerating chemotherapy well other than increasing neuropathy of hands and feet. Dose reduced Velcade by 25% next cycle. Added daily ferrous sulfate. --He was referred to diabetes management clinic and sees Dr. Ochoa with regularfollow-up by Dr. Rahman since he is off dialysis. Diabetes control improved. 07/02/2020: Last dose of Velcade today. Neuropathy is stable and pain is well controlled. He will have COVID-19 test on 07/11/2020 for planned admission for stem cell collection on 07/17/2020 then high-dose melphalan followed by peripheral blood stem cell transplant day 0 scheduled 07/23/2020. His next follow-up with ri will be in about 4 months after he is completed day 100 transplant follow-up. He may return sooner as needed. 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 Melphalan 100mg/m2 + ASCT Day . 11/26/2020: Followup of [facility] end of therapy bone marrow biopsy 10/18/2020--no minimal residual disease. Started Revlimid maintenance 5mg daily in early October2020. 02/27/2021: No new symptoms other than rash. Slow improvement of neuropathy--titrating off gabapentin with palliative medicine. Benadryl for rash. Continue Revlimid 5mg daily. He will be due for firstpost transplant vaccines sooner--will check schedule with . [...] function is actually improved from prior values withcreatinine clearance of 50. We sent serum iron [...] kappa/lambda light chain ratio. MRD testing at [facility] was nondiagnostic and he will have repeat bone marrow biopsy here with me to send MRD testing. Next followup with me in 3 months for exam and f/u myeloma labs. We will coordinate his bone marrowbiopsy at that time. He will continue follow-up [...] be scheduled for MRD bone marrow at [facility] interventional radiology in April 2022, then follow-up with me with review of myeloma labs 3 months after this procedure. He still has undetectablemonoclonal spike and normal kappa/lambda light chain ratio on most recent labs. Renal function is improving since ESWL at [place] in late December. 05/23/2022: No new issues, [...] and increased urine frequency despite recent Urolift procedure.Intolerant of Myrbetriq. Clonoseq reveals no clonal tumor cells. Recommend holding Revlimid 1 monthfor cytopenias and persistent fatigue due to quality of life concerns. He will followup with Dr. Hall next week to discuss holding Revlimid. If symptoms improved at one month followup with [employer]TRIFUG[employer] CHILLER TECHNICIAN, he will followup with me in one month with CBC, CMP, SPEP for monoclonal spike and kappa/lambda light chain ratio. 07/28/2022: Patsy is here for interval 1 month follow up; not much gear changer the past 1 month - of note, [...] still fatigued, still not much energy or appetite;but overall no significant changes. He saw Dr. Hall on 07/03/2022 and his note was reviewed. He mentioned that it would bebeneficial for patient to continue Revlimid if able; he was also taken off Ac yclovir and advised to follow up with Dr. [...] we may continue to hold Revlimid and followevery 3 months. --Stable symptoms off Revlimid x 1 month at 07/28/2022 follow up (3) History of hemodialysis Initiated inpatient hemodialysis 02/2020, then transitioned to outpatient hemodialysis 3 times weekly Thursday//Thursday schedule. Chemotherapy given Thursday/. I explained to patient andhis that with light chain nephropathy once we [...] autologous PBSCT given his significant response to initialmyeloma directed therapy. Continued f/u with nephrology for stage III chronic kidney disease/resolved hyperkalemia. (4) Steroid-induced diabetes mellitus Qualifiers: Encounter type: subsequent encounter Qualified Code(s): E09.9 - Drug or chemical induced diabetes mellitus without complications; T38.0X5D - Adverse effect of glucocorticoids and synthetic analogues,subsequent encounter Patsy had an excellent response of light chains but was noted to have significant hyperglycemia 300-500 fasting blood sugars. He was referred to diabetes management clinic with addition of insulin therapy that has significantly improved control of his blood sugars. Patient also had remarked on some blurred vision that improved with control of blood sugars. Continue follow- up of blood sugars during admission for transplant in early July. 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 Resumed low dose metformin and titrating downinsulin--directed by his primary physician. Recent injection (likely [...] vitamin D2 therapy 50,000 units orally for low25 hydroxy vitamin D stores. He may take [...] cycle with cycle 2 due to excellent reductionof kappa light chains (recommended by Dr. Hall malignanthematology). 06/04/2020: 25% DR Steven (100% all other meds) due to worsening neuropathy. Last dose of bortezomib 07/02/2020 and holding daratumumab per request of Dr. Hall. 07/25/2020: Melphalan 100mg/m2 + autologous PBSCT 10/18/2020: Started Revlimid 5 mg daily maintenance after bone marrow biopsy negative for MRD. RepeatMRD bone marrow at [facility] in 3 months because spring 2021 bone [...] interval 1 month follow up; not much gear changer the past 1 month - of note, patient was taken off Revlimid on 06/27/2022 visit due to profound fatigue and no evidence of on recent Clonoseq testing. - planning to hold Revlimid with pending urology procedure for additional month;reviewed Dr. Hall's note from 07/03/2022; he mentioned it would be beneficial for patient to continue Revlimid if able- possibly at lower dose of 2.5 mg. [...] for coordination of care (as documented) and iong-be-xvso counseling of patient and/or family. Dictated By: Rosie Chew APRN DD/ [id number] Signed By: <Electronically signed by JACKIE Chew> 07/28/22 [address] [facility] Work Phone: 1(732) 914-683911-21-2022 Hospital Discharge instructions Patient Education 07/07/2022 18:01:00 [...] degrees. Follow Up Care 07/04/2022 14:41:36 With:Orquidea Issa Address:Unknown When: Unknown Comments:Bladder US, schedule TURP [facility]11-21-2022 Evaluation + Plan noteExtracted from: Title:[facility][note 3] NoteAuthor:Orquidea Issa MDDate:07/07/22 Impression and Plan 77 yo M with [...] been discussed with the patient. These include bleeding,infection, need for blood transfusion, continued urinary difficulties, [...] Appointments Appointment Date:08/06/2022 10:00:00 AM Scheduled Provider:Orquidea Issa MD Location:[facility] Appointment Type:URO Office Visit [facility]11-18-2022 Hospital Discharge instructions Patient Education 07/04/2022 10:59:43 [...] urethra. Follow these instructions at home: Take jcxu-nyh-niyppxq and prescription medicines only as told by [...] 08/03/2006 Document Revised: 06/28/2019 Document Reviewed: 09/07/2017 [employer] Patient Education 2020 [employer]. Follow Up Care 07/01/2022 09:13:44 With:Diego RICKS, OUSMANE Bell, URO Address: When: Unknown Comments:Schedule cysto [facility] 11-12-2022 Progress note Author Brook Huddleston [facility] June 28, 2022 2:07pmNote Date/TimeNovember 2021 10:23[facility] at [address] [address] Hem/Onc Follow Up Note - OP Signed Patient: Patsy Mills MR#: [id number] : 1945 Acct:[id number] Age/Sex: 77 / M Type: REG RCR Copies to: MD Helen Jaramillo MD~ Subjective Date/Time of Service: Date of Service: 06/27/2022 Time of Service: :21 Chief Complaint: Patient is here today for a 5 week follow up visit for light chain nehpropathy d/tmultiple myeloma and go over labs HPI: 06/27/2022: Patsy is here for followup to review Clonoseq testing that was still pending at last visit. He continues to have increased urine frequency andincontinence after prior Urolift surgery. Hewas given Mybetriq to manage urinefrequency but notes this was not well tolerated due to mouth sores, diarrhea, and headaches which improved after stopping the medication. No other concerningsymptomsalthough he has persistent fatigue and is frustrated with his quality of life. His Clonoseq returned at zero clonal cells. We noted since he has no evidence of disease in marrow and decreased qualityof life, he will hold Revlimid x 1 month to see if symptoms improve. One month followup with CENTRIFUGAL CHILLER TECHNICIAN to r ramakrishnaw labs and symptoms. He also has followup with Dr. Hall in one week and will inform him of plan for one month off Revlimid. He also may seek Urology second opinion. Moderate complexity 30 minutefollowup visit. 05/23/2022: Noted to have Urolift procedure at [facility] last month, noted increased post-op painthat is slowly improving. On 05/16 he had [...] bone marrow aspirate alone in clinic today tosend for MRD testing. Other labs are stable--we [...] of kidney stone by Dr. Seals at [place] on 01/14/2022 without complications. Sent off Revlimid since December 12, 2021 due to cytopenias. Otherwise no changes in clinical history. He is due for his second shingles shot and since he is otherwise stable with norecent infections he can receive his second dose. He did require transfusion of 2 units packed red blood cells for hemoglobin 6.7 on 01/23/2022. Hemoglobin has now improved to normal methylmalonic acidand homocystine, elevated iron saturation 72% and ferritin elevated to 663. Erythropoietin level was also elevated to 547.7 so he is not a candidate for erythrocyte stimulating agents. At this time Pradeep continue to hold Revlimid since he has no evidence of M spike on his most recent serum protein electrophoresis or serum or urine immunofixation. [place]/lambda light chain ratio continues to decline to now 1.31 (normal). Due to his recent anemia we will hold his Revlimid another month and repeathis CBC in 1 month. If hemoglobin improving, we may consider resuming his maintenance Revlimid to 5mg every other day. Next follow-up in April 2022 for repeat bone marrow biopsyin interventionalradiology for specimen to be sent for minimal residual diseasetesting. I will follow-up with him 3 weeks thereafter for review of symptoms and bone marrow results, sooner as needed. 01/02/2022: Patsy and his are here for 3 month followup visit. She raised most of the concernsregarding worsening fatigue. He has been off He underwent a painful bone marrow by CENTRIFUGAL CHILLER TECHNICIAN with Dr. Hall with nondiagnostic specimen. Dr. Hall recommended repeat bone marrow in the fall with MRD testing(we will set up with IR). I reviewed [...] 20 he was treated for UTI at [facility] ER, thenadmitted August 24 to [place] with dehydration and urosepsis with discharge August 29. 09/05/2021 followed up with for continued antibiotics with Bactrim DS. Urine also returned positive for candidiasis and he was treated with fluconazole daily. He stopped his hydralazine and Lasix. --09/17/2021: He returned for labs and skeletal survey at [facility] and his potassium on blood work was markedly elevated. We contacted him and advised ER evaluation at [facility]. His potassium returned at 7.3 and he required hydration, calcium gluconate, insulin with bicarb, and had a negative Covid test. He was admitted and had unremarkable renal ultrasound, transfused 1 unit of blood for hemoglobin 7.3. Potassium and creatinine normalized and he was discharged home on 09/19/2021. Since that time he has had some improvement of energy but still haspoor appetite and mild weakness. No fever, chills, or sweats. I will have him follow-up with nephrology and Dr. Ochoa for management of his potassium and creatinine. [...] due for follow-up with Dr. Hall at [facility] malignant hematology in late [...] for post transplant vaccines. Stable kappa/lambda ratio--no M- spike serum and urine testing. Quant immunoglobulins normal. I will f/u with myeloma labs in 3 months--CBC, CMP, SPEP, quant IGs, kappa/lambda light chains and beta2 microglobulin. He and his are in agreement with this plan. 11/26/2020: Patsy is here for followup after D86 bone marrow biopsy at [facility] on 10/18/2020. No evidence of MRD--0.5% plasma cells andno clonal plasma cells suggestive of residual myeloma. Tolerating maintenance Revlimid 5mg daily well. No bone pain and normal renal function-- hasreleased for annual nephrology followup. He is fully vaccinated for [id number] and I contacted Dr. Hall for coordination [...] up for palliative consultation (previously followed by Olamide Olivia). He has a followup bone marrow [...] completed all of his pretransplant evaluation at [facility] including cardiology visit 11 9 which showed ejection fraction 60%. I have contacted Dr. Hall who noted that today will be his last day of Velcade and we will hold his daratumumab. He was to have a COVID-19 teston 07/11/2020 for planned stem cell collection 07/17 and transplant on 07/23. I clarified with the staff at [facility] this this may be performed at [facility] and forwarded to them. His neuropathy in [...] He has now hemodialysis independent after daratumumab, dexamethasone,and Velcade with addition of Revlimid. Today he reports that he has had increased neuropathy symptoms in hisbilateral hands and feet with mild interference with activity (grade 2). We discussed a 25%dose reduction of Velcade on day 1, day [...] Dr. Hall regarding end of therapy and in1 month I will see him with follow-up myeloma studies. No other new concerns today. 05/07/2020: Patsy is here for 1 month follow-up. Outpatient hemodialysis was stopped after 04/24/2020due to excellent response. He was evaluated by Dr. Small at [facility] on 04/26/2020.Angel and his note that Dr. Hall felt that he was physiologically about 8 years younger than his chronologic age and would likely be transplant eligible if pretransplant work- updeems this feasible. He recommended continuing current daratumumab [...] no toxicities of chemotherapy. He sees Dr. Ochoa for follow-up tomorrow and maintains insulin with stabilization of hisblood sugars following with diabetes management clinic. I [...] has remarkably improved (>90% reduction past month). [place] light chains decreased from 12,000 to 42. [...] response. He received his first cycle of combi nation chemotherapy 03/12/2020. --Patient tolerated initial daratumumab infusion reasonably well with brief infusion reaction (dizziness and mild wheezing) that was treated with diphenhydramine, steroids, albuterol, and Demerol forrigors. He completed remaining infusion in an outpatient bed on the inpatient hart Thursday and we ant icipate further weekly daratumumab infusions as an outpatient. [...] kappa light chains, and elevated M spike. Wediscussed in detail the pathophysiology of myeloma but she felt very anxious and overwhelmed and I r eassured her that we will readdress this at [...] could be managed byhis primary physician Dr. Ochoa and he could be referred for diabetes [...] marijuana and would discuss this with his lawn service manager whetherthis would interfere with dialysis. We will also follow closely for cytopenias and reviewed infectious precautions. He has a sonfrom [place] who plans to visit on Thursday and [...] exercise given his recentdialysis and initiation of chemotherapy.I did not specifically address his diet but he may address this with our [facility] nutrition team. He will also receivechemotherapy class with our nurses in the infusion center. PRELIMINARY HISTORY (from initial consult 03/08/2020): This is a now 77-year-old male who was transferred from [place] emergency room by [facility] due to critical potassium 8.7 with elevated creatinine 11.2 and BUN 82 on 03/04/2020. We do not have any recent blood work for comparison but hehad normal creatinine in 2011. He was urgently treated for hishyperkalemia anddialysis was arranged emergently by nephrology team. He has now stabilized on dialysis and had extensive work-up for etiology of his acute renal failure with severe anemia felt to be due to anemia of renal insufficiency. Iron studies returned normal with ferritin 160, but B12 low at84 and folate low normal at 5.2. He [...] showing labral pathology of the joint but nofracture or dislocation. Myeloma labs were sent showing [...] day 0 autologous stem cell transplant 07/25/2020at [facility]. 11/26/2020: Follow-up bone marrow aspiration and biopsy 10/18/2020 for MRD evaluation shows hypocellular marrow with 0.5% plasma cells, no clonal population by flow cytometry but 0.03% kappa light chainskewing. Started Revlimid 5 mg daily for maintenance therapy early October 2020. Nondiagnostic bone marrow for MRD in spring 2021 at . Planned follow-up bone marrow biopsy for MRD at [facility] fall 2021. -- 02/05/2022: Revlimid on hold [...] starting dialysis, chemotherapy, and transplant for light chainnephropathy. 11/2020--returned to baseline weight pretransplant. GENITOURINARY: Negative for dysuria and hematuria. Improved urinary output, diagnosed in February 2020 with renal failure requiring dialysis--off dialysis 04/24/2020. Prior nephrolithiasis previously followed by Dr. Seals--recent ESWL 01/14/2022 at [place]. ENDOCRINE: Negative for cold intolerance and heat intolerance. Improvement of prior hyperglycemia with home blood sugars in the 100-200s on supplemental insulin glargine. CENTRAL NERVOUS SYSTEM: Negative for gait disturbance and headache. No focal neurologic deficits orhistory of stroke. Improvement of painful sensory neuropathy [...] Negative for environmental allergies and food allergies. [facility] - History Attestation statement: The [...] pen (Lantus Solostar U-100 Insulin) 25 unit subcutDAILY 04/27/20 [History Confirmed 06/27/22] insulin lispro 100 unit/mL subcutaneous pen (Humalog KwikPen (U-100) Insulin) 6 - 16 unit subcut ASDIRECTED 04/27/20 [History Confirmed 06/27/22] atorvastatin 20 mg [...] October 2021, repeat MRD bone marrow at [facility] April 2022, MRD aspirate sent 05/23/2022--Clonoseq returned [...] Malignant Hematology--added Revlimid 5mg qod following significant reductionof light chains in early April 2020. 05/07/2020: [...] week to review results as well as evaluationwith Dr. Hall for possible stem cell transplant. 06/04/2020: Tolerating chemotherapy well other than increasing neuropathy of hands and feet. Dose reduced Velcade by 25% next cycle. Added daily ferrous sulfate. --He was referred to diabetes management clinic and sees Dr. Ochoa with regularfollow-up by Dr. Rahman since he [...] chain nephropathy. Melphalan 100mg/m2 + ASCT Day . 11/26/2020: Followup of [facility] end of therapy bone marrow biopsy 10/18/2020--no minimal residual disease. Started Revlimid maintenance 5mg daily in early October2020. 02/27/2021: No new symptoms other than rash. Slow improvement of neuropathy--titrating off gabapentin with palliative medicine. Benadryl for rash. Continue Revlimid 5mg daily. He will be due for firstpost transplant vaccines sooner--will check schedule with . [...] function is actually improved from prior values withcreatinine clearance of 50. We sent serum iron [...] kappa/lambda light chain ratio. MRD testing at [facility] was nondiagnostic and he will have repeat bone marrow biopsy here with me to send MRD testing. Next followup with me in 3 months for exam and f/u myeloma labs. We will coordinate his bone marrowbiopsy at that time. He will continue follow-up [...] be scheduled for MRD bone marrow at [facility] interventional radiology in April 2022, then follow-up with me with review of myeloma labs 3 months after this procedure. He still has undetectablemonoclonal spike and normal kappa/lambda light chain ratio on most recent labs. Renal function is improving since ESWL at [place] in late December. 05/23/2022: No new issues, [...] and increased urine frequency despite recent Urolift procedure.Intolerant of Myrbetriq. Clonoseq reveals no clonal tumor cells. Recommend holding Revlimid 1 monthfor cytopenias and persistent fatigue due to quality of life concerns. He will followup with Dr. Hall next week to discuss holding Revlimid. If symptoms improved at one month followup with CENTRIFUGAL CHILLER TECHNICIAN, he will followup with me in one [...] we may continue to hold Revlimid and followevery 3 months. (3) History of hemodialysis Initiated inpatient hemodialysis 02/2020, then transitioned to outpatient hemodialysis 3 times weekly Thursday//Thursday schedule. Chemotherapy given Thursday/. I explained to patient andhis that with light chain nephropathy once we [...] autologous PBSCT given his significant response to initialmyeloma directed therapy. Continued f/u with nephrology for stage III chronic kidney disease/resolved hyperkalemia. (4) Steroid-induced diabetes mellitus Qualifiers: Encounter type: subsequent encounter Qualified Code(s): E09.9 - Drug or chemical induced diabetes mellitus without complications; T38.0X5D - Adverse effect of glucocorticoids and synthetic analogues,subsequent encounter Patsy had an excellent response of light chains but was noted to have significant hyperglycemia 300-500 fasting blood sugars. He was referred to diabetes management clinic with addition of insulin therapy that has significantly improved control of his blood sugars. Patient also had remarked on some blurred vision that improved with control of blood sugars. Continue follow- up of blood sugars during admission for transplant in early July. 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 Resumed low dose metformin and titrating downinsulin--directed by his primary physician. Recent injection (likely [...] vitamin D2 therapy 50,000 units orally for low25 hydroxy vitamin D stores. He may take [...] cycle with cycle 2 due to excellent reductionof kappa light chains (recommended by Dr. Hall malignanthematology). 06/04/2020: 25% DR Bortezomib (100% all other meds) due to worsening neuropathy. Last dose of bortezomib 07/02/2020 and holding daratumumab per request of Dr. Hall. 07/25/2020: Melphalan 100mg/m2 + autologous PBSCT 10/18/2020: Started Revlimid 5 mg daily maintenance after bone marrow biopsy negative for MRD. RepeatMRD bone marrow at [facility] in 3 months because spring 2021 bone [...] for coordination of care (as documented) and [id number] counseling of patient and/or family. Dictated By: Brook Huddleston MD DD/ 1021 Signed By: <Electronically signed by MD Brook Huddleston> 06/28/22 [address] [facility] Work Phone: [phone]) 243-463610-19-2022 Hospital Discharge instructions Patient Education 06/04/2022 11:10:13 Acute Urinary Retention, Male, [id number] Acute Urinary Retention, Male Acute urinary retention means that you cannot pee (urinate) at all, or that you pee too little and your bladder is not emptied completely. If it is not treated, it can lead to kidney damage or other serious problems. Follow these instructions at home: Take ituw-baf-ezmueet and prescription medicines only as told by [...] 01/19/2009 Document Revised: 10/20/2019 Document Reviewed: 09/04/2017 [employer] Patient Education 2020 [employer]. Follow Up Care 05/05/2022 11:07:39 With:Diego RICKS, OUSMANE Bell, URO Address: [address] [place] [address]- [phone] When:08/04/2022 [facility] 10-08-2022 Progress note Author Brook Huddleston [facility] May 24, 2022 12:25pmNote Date/TimeOct2021 11:15[facility] at [address] [address] Hem/Onc Follow Up Note - OP Signed Patient: Patsy Mills MR#: [id number] : 1945 Acct:[id number] Age/Sex: 77 / M Type: REG RCR Copies to: Helen Ochoa MD~ Subjective Date/Time of Service: Date of Service: 05/23/2022 Time of Service: 11:15 Chief Complaint: Patient is here today for a 4 month follow up visit for light chain nephropathy d/t multiple myeloma and go over bone marrow biopsy results HPI: 05/23/2022: Noted to have Urolift procedure at [facility] last month, noted increased post-op painthat is slowly improving. On 05/16 he had [...] bone marrow aspirate alone in clinic today tosend for MRD testing. Other labs are stable--we [...] of kidney stone by Dr. Seals at [place] on 01/14/2022 without complications. Sent off Revlimid since December 12, 2021 due to cytopenias. Otherwise no changes in clinical history. He is due for his second shingles shot and since he is otherwise stable with norecent infections he can receive his second dose. He did require transfusion of 2 units packed red blood cells for hemoglobin 6.7 on 01/23/2022. Hemoglobin has now improved to normal methylmalonic acidand homocystine, elevated iron saturation 72% and ferritin elevated to 663. Erythropoietin level was also elevated to 547.7 so he is not a candidate for erythrocyte stimulating agents. At this time Pradeep continue to hold Revlimid since he has no evidence of M spike on his most recent serum protein electrophoresis or serum or urine immunofixation. [place]/lambda light chain ratio continues to decline to now 1.31 (normal). Due to his recent anemia we will hold his Revlimid another month and repeathis CBC in 1 month. If hemoglobin improving, we may consider resuming his maintenance Revlimid to 5mg every other day. Next follow-up in April 2022 for repeat bone marrow biopsyin interventionalradiology for specimen to be sent for minimal residual diseasetesting. I will follow-up with him 3 weeks thereafter for review of symptoms and bone marrow results, sooner as needed. 01/02/2022: Patsy and his are here for 3 month followup visit. She raised most of the concernsregarding worsening fatigue. He has been off He underwent a painful bone marrow by CENTRIFUGAL CHILLER TECHNICIAN with Dr. Hall with nondiagnostic specimen. Dr. Hall recommended repeat bone marrow in the fall with MRD testing(we will set up with IR). I reviewed [...] 20 he was treated for UTI at [facility] ER, thenadmitted August 24 to [place] with dehydration and urosepsis with discharge August 29. 09/05/2021 followed up with for continued antibiotics with Bactrim DS. Urine also returned positive for candidiasis and he was treated with fluconazole daily. He stopped his hydralazine and Lasix. --09/17/2021: He returned for labs and skeletal survey at [facility] and his potassium on blood work was markedly elevated. We contacted him and advised ER evaluation at [facility]. His potassium returned at 7.3 and he required hydration, calcium gluconate, insulin with bicarb, and had a negative Covid test. He was admitted and had unremarkable renal ultrasound, transfused 1 unit of blood for hemoglobin 7.3. Potassium and creatinine normalized and he was discharged home on 09/19/2021. Since that time he has had some improvement of energy but still haspoor appetite and mild weakness. No fever, chills, or sweats. I will have him follow-up with nephrology and Dr. Ochoa for management of his potassium and creatinine. [...] due for follow-up with Dr. Hall at [facility] hematology in late October for 1 year [...] for post transplant vaccines. Stable kappa/lambda ratio--no M- spike serum and urine testing. Quant immunoglobulins normal. I will f/u with myeloma labs in 3 months--CBC, CMP, SPEP, quant IGs, kappa/lambda light chains and beta2 microglobulin. He and his are in agreement with this plan. 11/26/2020: Patsy is here for followup after D86 bone marrow biopsy at [facility] on 10/18/2020. No evidence of MRD--0.5% plasma cells andno clonal plasma cells suggestive of residual myeloma. Tolerating maintenance Revlimid 5mg daily well. No bone pain and normal renal function-- hasreleased for annual nephrology followup. He is fully vaccinated for [id number] and I contacted Dr. Hall for coordination [...] up for palliative consultation (previously followed by Olamide Olivia). He has a followup bone marrow [...] completed all of his pretransplant evaluation at [facility] including cardiology visit 11 9 which showed ejection fraction 60%. I have contacted Dr. Hall who noted that today will be his last day of Velcade and we will hold his daratumumab. He was to have a COVID-19 teston 07/11/2020 for planned stem cell collection 07/17 and transplant on 07/23. I clarified with the staff at [facility] this this may be performed at [facility] and forwarded to them. His neuropathy in [...] He has now hemodialysis independent after daratumumab, dexamethasone,and Velcade with addition of Revlimid. Today he reports that he has had increased neuropathy symptoms in hisbilateral hands and feet with mild interference with activity (grade 2). We discussed a 25%dose reduction of Velcade on day 1, day [...] Dr. Hall regarding end of therapy and in1 month I will see him with follow-up myeloma studies. No other new concerns today. 05/07/2020: Patsy is here for 1 month follow-up. Outpatient hemodialysis was stopped after 04/24/2020due to excellent response. He was evaluated by Dr. Small at [facility] on 04/26/2020.Angel and his note that Dr. Hall felt that he was physiologically about 8 years younger than his chronologic age and would likely be transplant eligible if pretransplant work- updeems this feasible. He recommended continuing current daratumumab [...] no toxicities of chemotherapy. He sees Dr. Ochoa for follow-up tomorrow and maintains insulin with stabilization of hisblood sugars following with diabetes management clinic. I [...] has remarkably improved (>90% reduction past month). [place] light chains decreased from 12,000 to 42. [...] response. He received his first cycle of combi nation chemotherapy 03/12/2020. --Patient tolerated initial daratumumab infusion reasonably well with brief infusion reaction (dizziness and mild wheezing) that was treated with diphenhydramine, steroids, albuterol, and Demerol forrigors. He completed remaining infusion in an outpatient bed on the inpatient hart Thursday and we ant icipate further weekly daratumumab infusions as an outpatient. [...] kappa light chains, and elevated M spike. Wediscussed in detail the pathophysiology of myeloma but she felt very anxious and overwhelmed and I r eassured her that we will readdress this at further follow-up visits. 2. Patient had a metastatic bone survey showing no areas of lytic disease or pathologic fractures. We discussed CRAB criteria for multiple myeloma diagnosisand that he meets criteria of R renal and Aanemia, but not elevated calcium or bone disease (C and B). She specifically asked is stage of multiple myeloma andwe noted that he still will require beta-2 glycoprotein (ISS) but is most consistentwith stage III. We are still awaiting his [...] could be managed byhis primary physician Dr. Ochoa and he could be referred for diabetes [...] marijuana and would discuss this with his lawn service manager whetherthis would interfere with dialysis. We will also follow closely for cytopenias and reviewed infectious precautions. He has a son from [place] who plans to visit on Thursday and [...] exercise given his recentdialysis and initiation of chemotherapy.I did not specifically address his diet but he may address this with our [facility] nutrition team. He will also receivechemotherapy class with our nurses in the infusion center. PRELIMINARY HISTORY (from initial consult 03/08/2020): This is a now 77-year-old male who was transferred from [place] emergency room by [facility] due to critical potassium 8.7 with elevated creatinine 11.2 and BUN 82 on 03/04/2020. We do not have any recent blood work for comparison but hehad normal creatinine in 2011. He was urgently treated for hishyperkalemia anddialysis was arranged emergently by nephrology team. He has now stabilized on dialysis and had extensive work-up for etiology of his acute renal failure with severe anemia felt to be due to anemia of renal insufficiency. Iron studies returned normal with ferritin 160, but B12 low at84 and folate low normal at 5.2. He [...] showing labral pathology of the joint but nofracture or dislocation. Myeloma labs were sent showing [...] light chains. I will review information with himat noon today around the time of his [...] to be coordinated with nursing staffdue to [facility]. - Summary of Therapies [...] day 0 autologous stem cell transplant 07/25/2020at [facility]. 11/26/2020: Follow-up bone marrow aspiration and biopsy 10/18/2020 for MRD evaluation shows hypocellular marrow with 0.5% plasma cells, no clonal population by flow cytometry but 0.03% kappa light chainskewing. Started Revlimid 5 mg daily for maintenance therapy early October 2020. Nondiagnostic bone marrow for MRD in spring 2021 at . Planned follow-up bone marrow biopsy for MRD at [facility] fall 2021. -- 02/05/2022: Revlimid on hold [...] starting dialysis, chemotherapy, and transplant for light chainnephropathy. 11/2020--returned to baseline weight pretransplant. GENITOURINARY: Negative for dysuria and hematuria. Improved urinary output, diagnosed in February 2020 with renal failure requiring dialysis--off dialysis 04/24/2020. Prior nephrolithiasis previously followed by Dr. Seals--recent ESWL 01/14/2022 at [place]. ENDOCRINE: Negative for cold intolerance and heat intolerance. Improvement of prior hyperglycemia with home blood sugars in the 100-200s on supplemental insulin glargine. CENTRAL NERVOUS SYSTEM: Negative for gait disturbance and headache. No focal neurologic deficits orhistory of stroke. Improvement of painful sensory neuropathy [...] Negative for environmental allergies and food allergies. [facility] - History Attestation statement: The [...] pen (Lantus Solostar U-100 Insulin) 25 unit subcutDAILY 04/27/20 [History Confirmed 05/23/22] insulin lispro 100 unit/mL subcutaneous pen (Humalog KwikPen (U-100) Insulin) 6 - 16 unit subcut ASDIRECTED 04/27/20 [History Confirmed 05/23/22] atorvastatin 20 mg [...] October 2021, repeat MRD bone marrow at [facility] April 2022, MRD aspirate sent 05/23/2022 (1) [...] for multiple myeloma--70% plasma cells without amyloid dep ositionidentified in small marrow specimen. Normal baseline skeletal [...] Malignant Hematology--added Revlimid 5mg qod following significant reductionof light chains in early April 2020. 05/07/2020: [...] week to review results as well as evaluationwith Dr. Hall for possible stem cell transplant. 06/04/2020: Tolerating chemotherapy well other than increasing neuropathy of hands and feet. Dose reduced Velcade by 25% next cycle. Added daily ferrous sulfate. --He was referred to diabetes management clinic and sees Dr. Ochoa with regularfollow-up by Dr. Rahman since he [...] he is completed day 100 transplant follow-up. Hemay return sooner as needed. 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 Melphalan 100mg/m2 + ASCT Day . 11/26/2020: Followup of [facility] end of therapy bone marrow biopsy 10/18/2020--no minimal residual disease. Started Revlimid maintenance 5mg daily in early October2020. 02/27/2021: No new symptoms other than rash. Slow improvement of neuropathy--titrating off gabapentin with palliative medicine. Benadryl for rash. Continue Revlimid 5mg daily. He will be due for firstpost transplant vaccines sooner--will check schedule with . [...] function is actually improved from prior values withcreatinine clearance of 50. We sent serum iron [...] kappa/lambda light chain ratio. MRD testing at [facility] was nondiagnostic and he will have repeat bone marrow biopsy here with me to send MRD testing. Next followup with me in 3 months for exam and f/u myeloma labs. We will coordinate his bone marrowbiopsy at that time. He will continue follow-up [...] be scheduled for MRD bone marrow at [facility] interventional radiology in April 2022, then follow-up with me with review of myeloma labs 3 months after this procedure. He still has undetectablemonoclonal spike and normal kappa/lambda light chain ratio on most recent labs. Renal function is improving since ESWL at [place] in late December. 05/23/2022: No new issues, [...] Chemotherapy given Thursday/. I explained to patient andhis that with light chain nephropathy once we [...] autologous PBSCT given his significant response to initialmyeloma directed therapy. Continued f/u with nephrology for stage III chronic kidney disease/resolved hyperkalemia. (4) Steroid-induced diabetes mellitus Qualifiers: Encounter type: subsequent encounter Qualified Code(s): E09.9 - Drug or chemical induced diabetes mellitus without complications; T38.0X5D - Adverse effect of glucocorticoids and synthetic analogues,subsequent encounter Patsy had an excellent response of light chains but was noted to have significant hyperglycemia 300-500 fasting blood sugars. He was referred to diabetes management clinic with addition of insulin therapy that has significantly improved control of his blood sugars. Patient also had remarked on some blurred vision that improved with control of blood sugars. Continue follow- up of blood sugars during admission for transplant in early July. 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 Resumed low dose metformin and titrating downinsulin--directed by his primary physician. Recent injection (likely [...] vitamin D2 therapy 50,000 units orally for low25 hydroxy vitamin D stores. He may take [...] cycle with cycle 2 due to excellent reductionof kappa light chains (recommended by Dr. Hall [facility] malignanthematology). 06/04/2020: 25% DR Bortezomib (100% all other meds) due to worsening neuropathy. Last dose of bortezomib 07/02/2020 and holding daratumumab per request of Dr. Hall. 07/25/2020: Melphalan 100mg/m2 + autologous PBSCT 10/18/2020: Started Revlimid 5 mg daily maintenance after bone marrow biopsy negative for MRD. RepeatMRD bone marrow at [facility] in 3 months because spring 2021 bone [...] for coordination of care (as documented) and [id number] counseling of patient and/or family. Dictated By: Brook Huddleston MD DD/ [id number] Signed By: <Electronically signed by MD Brook Huddleston> 05/24/22 [facility] Work Phone: [phone]) 725-848310-08-2022 [facility] Procedure note [facility]-19-2022 Hospital Discharge instructions Patient Education 05/05/2022 10:53:10 [...] catheter. Follow Up Care 04/18/2022 14:54:13 With:Orquidea Issa Address:Unknown When: Unknown Comments:Office will call to schedule follow up in 1 month with PVR and IPSSFollow up in 1-2 days for gunn removal if urine is clear With:Orquidea Issa Address:Unknown When: Unknown [facility]09-02-2022 Hospital Discharge instructions Patient Education 04/18/2022 14:33:30 [...] 08/03/2006 Document Revised: 04/22/2019 Document Reviewed: 07/03/2017 [employer] Patient Education 2020 [employer]. 04/18/2022 14:33:29 Benign Prostatic Hyperplasia Benign Prostatic [...] urethra. Follow these instructions at home: Take ohct-dyy-bulmhrd and prescription medicines only as told by [...] 08/03/2006 Document Revised: 06/28/2019 Document Reviewed: 09/07/2017 [employer] Patient Education [employer] Follow Up Care 04/15/2022 15:48:55 With:Diego RICKS, OUSMANE Bell, URO Address: When: Unknown [facility] 08-18-2022 Hospital Discharge instructions Patient [...] With:Patsy Seals Address: [facility] [address] [place] [address]- Business (1) When:2 to 4 weeks Comments:Office visit to discuss and schedule [employer]. [facility]06-23-2022 Progress note Author Brook Huddleston [facility] February 06, 2022 2:07pmNote Date/TimeJun2021 11:54[facility] at [address] [address] Hem/Onc Follow Up Note - OP Signed Patient: Patsy Mills MR#: [id number] : 1945 Acct:[id number] Age/Sex: 77 / M Type: REG RCR [...] of kidney stone by Dr. Seals at [place] on 01/14/2022 without complications. Sent off Revlimid since December 12, 2021 due to cytopenias. Otherwise no changes in clinical history. He is due for his second shingles shot and since he is otherwise stable with norecent infections he can receive his second dose. He did require transfusion of 2 units packed red blood cells for hemoglobin 6.7 on 01/23/2022. Hemoglobin has now improved to normal methylmalonic acidand homocystine, elevated iron saturation 72% and ferritin elevated to 663. Erythropoietin level was also elevated to 547.7 so he is not a candidate for erythrocyte stimulating agents. At this time Iwill continue to hold Revlimid since he has no evidence of M spike on his most recent serum protein electrophoresis or serum or urine immunofixation. [place]/lambda light chain ratio continues to decline to now 1.31 (normal). Due to his recent anemia we will hold his Revlimid another month and repeathis CBC in 1 month. If hemoglobin improving, we may consider resuming his maintenance Revlimid to 5mg every other day. Next follow-up in April 2022 for repeat bone marrow biopsyin interventionalradiology for specimen to be sent for minimal residual diseasetesting. I will follow-up with him 3 weeks thereafter for review of symptoms and bone marrow results, sooner as needed. 01/02/2022: Patsy and his are here for 3 month followup visit. She raised most of the concernsregarding worsening fatigue. He has been off He underwent a painful bone marrow by [employer] with Dr. Hall with nondiagnostic specimen. Dr. Hall recommended repeat bone marrow in the fall with MRD testing(we will set up with IR). I reviewed [...] 20 he was treated for UTI at [facility] ER, thenadmitted August 24 to [place] with dehydration and urosepsis with discharge August 29. 09/05/2021 followed up with for continued antibiotics with Bactrim DS. Urine also returned positive for candidiasis and he was treated with fluconazole daily. He stopped his hydralazine and Lasix. --09/17/2021: He returned for labs and skeletal survey at [facility] and his potassium on blood work was markedly elevated. We contacted him and advised ER evaluation at [facility]. His potassium returned at 7.3 and he required hydration, calcium gluconate, insulin with bicarb, and had a negative Covid test. He was admitted and had unremarkable renal ultrasound, transfused 1 unit of blood for hemoglobin 7.3. Potassium and creatinine normalized and he was discharged home on 09/19/2021. Since that time he has had some improvement of energy but still haspoor appetite and mild weakness. No fever, chills, or sweats. I will have him follow-up with nephrology and Dr. Ochoa for management of his potassium and creatinine. [...] due for follow-up with Dr. Hall at [facility] hematology in late October for 1 year [...] for post transplant vaccines. Stable kappa/lambda ratio--no M- spike serum and urine testing. Quant immunoglobulins normal. I will f/u with myeloma labs in 3 months--CBC, CMP, SPEP, quant IGs, kappa/lambda light chains and beta2 microglobulin. He and his are in agreement with this plan. 11/26/2020: Patsy is here for followup after D86 bone marrow biopsy at [facility] on 10/18/2020. No evidence of MRD--0.5% plasma cells andno clonal plasma cells suggestive of residual myeloma. Tolerating maintenance Revlimid 5mg daily well. No bone pain and normal renal function-- hasreleased for annual nephrology followup. He is fully vaccinated for [id number] and I contacted Dr. Hall for coordination [...] up for palliative consultation (previously followed by Olamide Olivia). He has a followup bone marrow [...] completed all of his pretransplant evaluation at [facility] including cardiology visit 06 25 which showed ejection fraction 60%. I have contacted Dr. Hall who noted that today will be his last day of Velcade and we will hold his daratumumab. He was to have a COVID-19 teston 07/11/2020 for planned stem cell collection 07/17 and transplant on 07/23. I clarified with the staff at [facility] this this may be performed at [facility] and forwarded to them. His neuropathy in [...] He has now hemodialysis independent after daratumumab, dexamethasone,and Velcade with addition of Revlimid. Today he reports that he has had increased neuropathy symptoms in hisbilateral hands and feet with mild interference with activity (grade 2). We discussed a 25%dose reduction of Velcade on day 1, day [...] Dr. Hall regarding end of therapy and in1 month I will see him with follow-up myeloma studies. No other new concerns today. 05/07/2020: Patsy is here for 1 month follow-up. Outpatient hemodialysis was stopped after 04/24/2020due to excellent response. He was evaluated by Dr. Small at [facility] on 04/26/2020.Angel and his note that Dr. Hall felt that he was physiologically about 8 years younger than his chronologic age and would likely be transplant eligible if pretransplant work- updeems this feasible. He recommended continuing current daratumumab [...] no toxicities of chemotherapy. He sees Dr. Ochoa for follow-up tomorrow and maintains insulin with stabilization of hisblood sugars following with diabetes management clinic. I [...] has remarkably improved (>90% reduction past month). [place] light chains decreased from 12,000 to 42. [...] response. He received his first cycle of combi nation chemotherapy 03/12/2020. --Patient tolerated initial daratumumab infusion reasonably well with brief infusion reaction (dizziness and mild wheezing) that was treated with diphenhydramine, steroids, albuterol, and Demerol forrigors. He completed remaining infusion in an outpatient bed on the inpatient hart Thursday and we ant icipate further weekly daratumumab infusions as an outpatient. [...] kappa light chains, and elevated M spike. Wediscussed in detail the pathophysiology of myeloma but she felt very anxious and overwhelmed and I r eassured her that we will readdress this at further follow-up visits. 2. Patient had a metastatic bone survey showing no areas of lytic disease or pathologic fractures. We discussed CRAB criteria for multiple myeloma diagnosisand that he meets criteria of R renal and Aanemia, but not elevated calcium or bone disease (C and B). She specifically asked is stage of multiple myeloma andwe noted that he still will require beta-2 glycoprotein (ISS) but is most consistentwith stage III. We are still awaiting his [...] could be managed byhis primary physician Dr. Ochoa and he could be referred for diabetes [...] marijuana and would discuss this with his lawn service manager whetherthis would interfere with dialysis. We will also follow closely for cytopenias and reviewed infectious precautions. He has a [facility] who plans to visit on Thursday and [...] exercise given his recentdialysis and initiation of chemotherapy.I did not specifically address his diet but he may address this with our [facility] nutrition team. He will also receivechemotherapy class with our nurses in the infusion center. PRELIMINARY HISTORY (from initial consult 03/08/2020): This is a now 77-year-old male who was transferred from [place] emergency room by [facility] due to critical potassium 8.7 with elevated creatinine 11.2 and BUN 82 on 03/04/2020. We do not have any recent blood work for comparison but hehad normal creatinine in 2011. He was urgently treated for hishyperkalemia anddialysis was arranged emergently by nephrology team. He has now stabilized on dialysis and had extensive work-up for etiology of his acute renal failure with severe anemia felt to be due to anemia of renal insufficiency. Iron studies returned normal with ferritin 160, but B12 low at84 and folate low normal at 5.2. He [...] showing labral pathology of the joint but nofracture or dislocation. Myeloma labs were sent showing M spike 3.6 g/dL with serum immunofixation showing IgG kappa light chain specificity. Serum IgG markedly elevated at 5312 and free kappa light chain 12,649.9 with normal free lambda light chain 11.94 free kappa/lambda ratio 1063. Hepatitis A, B, and C serologies were all negative and COVID-19 screening was negative. OLRE, c-ANCA, p-ANCA, anti-GBM, and antimyeloperoxidase were all [...] day 0 autologous stem cell transplant 07/25/2020at [facility]. 11/26/2020: Follow-up bone marrow aspiration and biopsy 10/18/2020 for MRD evaluation shows hypocellular marrow with 0.5% plasma cells, no clonal population by flow cytometry but 0.03% kappa light chainskewing. Started Revlimid 5 mg daily for maintenance therapy early October 2020. Nondiagnostic bone marrow for MRD in spring 2021 at . Planned follow-up bone marrow biopsy for MRD at [facility] fall 2021. -- 02/05/2022: Revlimid on hold [...] starting dialysis, chemotherapy, and transplant for light chainnephropathy. 11/2020--returned to baseline weight pretransplant. GENITOURINARY: Negative for dysuria and hematuria. Improved urinary output, diagnosed in February 2020 with renal failure requiring dialysis--off dialysis 04/24/2020. Prior nephrolithiasis previously followed by Dr. Seals--recent ESWL 01/14/2022 at [place]. ENDOCRINE: Negative for cold intolerance and heat intolerance. Improvement of prior hyperglycemia with home blood sugars in the 100-200s on supplemental insulin glargine. CENTRAL NERVOUS SYSTEM: Negative for gait disturbance and headache. No focal neurologic deficits orhistory of stroke. Improvement of painful sensory neuropathy [...] bruising. Recent transfusion 2 units packed red bloodcells 01/23/2022 for hemoglobin 6.7. His only transfusion was other than 2 units red cells in October 2021. Positive for left basilic vein thrombus on Doppler ultrasound 03/12/2020--no longer requires anticoagulation. ALLERGY: Negative for environmental allergies and food allergies. [facility] - History Attestation statement: The [...] pen (Lantus Solostar U-100 Insulin) 25 unit SUBCUTDAILY 04/27/20 [History Confirmed 02/05/22] insulin lispro 100 unit/mL subcutaneous pen (Humalog KwikPen (U-100) Insulin) 6 - 16 unit SUBCUT ASDIRECTED 04/27/20 [History Confirmed 02/05/22] atorvastatin 20 mg [...] % (Auto) 66.4, Lymph % (Auto) 21.2, Randolph % (Auto) 6.9, Eos %(Auto) 5.1, Baso % (Auto) 0.4, Neut # (Auto) 2.4, Lymph # (Auto) 0.8 L, Randolph # (Auto) 0.3, Eos # (Auto) 0.2, Baso # (Auto) 0.0, Nucleated RBC % (auto) 0.1 - Impressions No imaging for review. We do not have records from his recent ESWL at [place]. 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 05/07/2020: [...] week to review results as well as evaluationwith Dr. Hall for possible stem cell transplant. 06/04/2020: Tolerating chemotherapy well other than increasing neuropathy of hands and feet. Dose reduced Velcade by 25% next cycle. Added daily ferrous sulfate. --He was referred to diabetes management clinic and sees Dr. Ochoa with regularfollow-up by Dr. Rahman since he [...] chain nephropathy. Melphalan 100mg/m2 + ASCT Day . 11/26/2020: Followup of [facility] end of therapy bone marrow biopsy 10/18/2020--no minimal residual disease. Started Revlimid maintenance 5mg daily in early October2020. 02/27/2021: No new symptoms other than rash. Slow improvement of neuropathy--titrating off gabapentin with palliative medicine. Benadryl for rash. Continue Revlimid 5mg daily. He will be due for firstpost transplant vaccines sooner--will check schedule with . [...] function is actually improved from prior values withcreatinine clearance of 50. We sent serum iron [...] kappa/lambda light chain ratio. MRD testing at [facility] was nondiagnostic and he will have repeat bone marrow biopsy here with me to send MRD testing. Next followup with me in 3 months for exam and f/u myeloma labs. We will coordinate his bone marrowbiopsy at that time. He will continue follow-up [...] be scheduled for MRD bone marrow at [facility] interventional radiology in April 2022, then follow-up with me with reviewof myeloma labs 3 months after this procedure. He still has undetectablemonoclonal spike and normalkappa/lambda light chain ratio on most recent labs. Renal function is improving since ESWL at [place] in late December. This is a moderate [...] If he has increasing transfusion requirement we mayperform bonemarrow biopsy prior to scheduled MRD bone marrow in April 2022 to be performed in interventional radiology. (3) History of hemodialysis Initiated inpatient hemodialysis 02/2020, then transitioned to outpatient hemodialysis 3 times weekly Thursday//Thursday schedule. Chemotherapy given Thursday/. I explained to patient andhis that with light chain nephropathy once we [...] autologous PBSCT given his significant response to initialmyeloma directed therapy. Continued f/u with nephrology for stage III chronic kidney disease/resolved hyperkalemia. (4) Steroid-induced diabetes mellitus Qualifiers: Encounter type: subsequent encounter Qualified Code(s): E09.9 - Drug or chemical induced diabetes mellitus without complications; T38.0X5D - Adverse effect of glucocorticoids and synthetic analogues,subsequent encounter Patsy had an excellent response of light chains but was noted to have significant hyperglycemia 300-500 fasting blood sugars. He was referred to diabetes management clinic with addition of insulin therapy that has significantly improved control of his blood sugars. Patient also had remarked on some blurred vision that improved with control of blood sugars. Continue follow- up of blood sugars during admission for transplant in early July. 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 Resumed low dose metformin and titrating downinsulin--directed by his primary physician. (5) B12 deficiency [...] vitamin D2 therapy 50,000 units orally for low25 hydroxy vitamin D stores. He may take [...] cycle with cycle 2 due to excellent reductionof kappa light chains (recommended by Dr. Hall malignanthematology). 06/04/2020: 25% DR Bortezomib (100% all other meds) due to worsening neuropathy. Last dose of bortezomib 07/02/2020 and holding daratumumab per request of Dr. Hall. 07/25/2020: Melphalan 100mg/m2 + autologous PBSCT 10/18/2020: Started Revlimid 5 mg daily maintenance after bone marrow biopsy negative for MRD. RepeatMRD bone marrow at [facility] in 3 months because spring 2021 bone [...] minutes - Review monoclonal labs and manage worseninganemia. Coordination of Care & Counseling Time: Greater than 50% of time spent with patient was for coordination of care (as documented) and hqfi-[id number] counseling of patient and/or family. Dictated By: Brook Huddleston MD DD/ [id number] Signed By: <Electronically signed by MD Brook Huddleston> 02/06/22 100[address] [facility] Work Phone: 1(265) 448-420606-23-2022 Progress note Author Brook Huddleston [facility] February 06, 2022 2:07pmNote Date/TimeJune 2021 11:54[facility] at [address] [address] Hem/Onc Follow Up Note - OP Signed Patient: Patsy Mills MR#: [id number] : 1945 Acct:[id number] Age/Sex: 77 / M Type: REG RCR [...] of kidney stone by Dr. Seals at [place] on 01/14/2022 without complications. Sent off Revlimid since December 12, 2021 due to cytopenias. Otherwise no changes in clinical history. He is due for his second shingles shot and since he is otherwise stable with norecent infections he can receive his second dose. He did require transfusion of 2 units packed red blood cells for hemoglobin 6.7 on 01/23/2022. Hemoglobin has now improved to normal methylmalonic acidand homocystine, elevated iron saturation 72% and ferritin elevated to 663. Erythropoietin level was also elevated to 547.7 so he is not a candidate for erythrocyte stimulating agents. At this time Iwill continue to hold Revlimid since he has no evidence of M spike on his most recent serum protein electrophoresis or serum or urine immunofixation. [place]/lambda light chain ratio continues to decline to now 1.31 (normal). Due to his recent anemia we will hold his Revlimid another month and repeathis CBC in 1 month. If hemoglobin improving, we may consider resuming his maintenance Revlimid to 5mg every other day. Next follow-up in April 2022 for repeat bone marrow biopsyin interventionalradiology for specimen to be sent for minimal residual diseasetesting. I will follow-up with him 3 weeks thereafter for review of symptoms and bone marrow results, sooner as needed. 01/02/2022: Patsy and his are here for 3 month followup visit. She raised most of the concernsregarding worsening fatigue. He has been off He underwent a painful bone marrow by [employer] with Dr. Hall with nondiagnostic specimen. Dr. Hall recommended repeat bone marrow in the fall with MRD testing(we will set up with IR). I reviewed [...] 20 he was treated for UTI at [facility], thenadmitted [place] to [place] with dehydration and urosepsis with discharge August 29. 09/05/2021 followed up with for continued antibiotics with Bactrim DS. Urine also returned positive for candidiasis and he was treated with fluconazole daily. He stopped his hydralazine and Lasix. --09/17/2021: He returned for labs and skeletal survey at [facility] and his potassium on blood work was markedly elevated. We contacted him and advised ER evaluation at [facility]. His potassium returned at 7.3 and he required hydration, calcium gluconate, insulin with bicarb, and had a negative Covid test. He was admitted and had unremarkable renal ultrasound, transfused 1 unit of blood for hemoglobin 7.3. Potassium and creatinine normalized and he was discharged home on 09/19/2021. Since that time he has had some improvement of energy but still haspoor appetite and mild weakness. No fever, chills, or sweats. I will have him follow-up with nephrology and Dr. Ochoa for management of his potassium and creatinine. [...] due for follow-up with Dr. Hall at [facility] hematology in late October for 1 year [...] for post transplant vaccines. Stable kappa/lambda ratio--no M- spike serum and urine testing. Quant immunoglobulins normal. I will f/u with myeloma labs in 3 months--CBC, CMP, SPEP, quant IGs, kappa/lambda light chains and beta2 microglobulin. He and his are in agreement with this plan. 11/26/2020: Patsy is here for followup after D86 bone marrow biopsy at [facility] on 10/18/2020. No evidence of MRD--0.5% plasma cells andno clonal plasma cells suggestive of residual myeloma. Tolerating maintenance Revlimid 5mg daily well. No bone pain and normal renal function-- hasreleased for annual nephrology followup. He is fully vaccinated for [id number] and I contacted Dr. Hall for coordination [...] up for palliative consultation (previously followed by Olamide Olivia). He has a followup bone marrow [...] completed all of his pretransplant evaluation at [facility] including cardiology visit 11 9 which showed ejection fraction 60%. I have contacted Dr. Hall who noted that today will be his last day of Velcade and we will hold his daratumumab. He was to have a COVID-19 teston 07/11/2020 for planned stem cell collection 07/17 and transplant on 07/23. I clarified with the staff at [facility] this this may be performed at [facility] and forwarded to them. His neuropathy in [...] He has now hemodialysis independent after daratumumab, dexamethasone,and Velcade with addition of Revlimid. Today he reports that he has had increased neuropathy symptoms in hisbilateral hands and feet with mild interference with activity (grade 2). We discussed a 25%dose reduction of Velcade on day 1, day [...] Dr. Hall regarding end of therapy and in1 month I will see him with follow-up myeloma studies. No other new concerns today. 05/07/2020: Patsy is here for 1 month follow-up. Outpatient hemodialysis was stopped after 04/24/2020due to excellent response. He was evaluated by Dr. Small at [facility] on 04/26/2020.Angel and his note that Dr. Hall felt that he was physiologically about 8 years younger than his chronologic age and would likely be transplant eligible if pretransplant work- updeems this feasible. He recommended continuing current daratumumab [...] no toxicities of chemotherapy. He sees Dr. Ochoa for follow-up tomorrow and maintains insulin with stabilization of hisblood sugars following with diabetes management clinic. I [...] has remarkably improved (>90% reduction past month). [place] light chains decreased from 12,000 to 42. [...] response. He received his first cycle of [facility] chemotherapy 03/12/2020. --Patient tolerated initial daratumumab infusion reasonably well with brief infusion reaction (dizziness and mild wheezing) that was treated with diphenhydramine, steroids, albuterol, and Demerol forrigors. He completed remaining infusion in an outpatient bed on the inpatient hart Thursday and we ant icipate further weekly daratumumab infusions as an outpatient. [...] kappa light chains, and elevated M spike. Wediscussed in detail the pathophysiology of myeloma but she felt very anxious and overwhelmed and I r eassured her that we will readdress this at further follow-up visits. 2. Patient had a metastatic bone survey showing no areas of lytic disease or pathologic fractures. We discussed CRAB criteria for multiple myeloma diagnosisand that he meets criteria of R renal and Aanemia, but not elevated calcium or bone disease (C and B). She specifically asked is stage of multiple myeloma andwe noted that he still will require beta-2 glycoprotein (ISS) but is most consistentwith stage III. We are still awaiting his [...] could be managed byhis primary physician Dr. Ochoa and he could be referred for diabetes [...] marijuana and would discuss this with his lawn service manager whetherthis would interfere with dialysis. We will also follow closely for cytopenias and reviewed infectious precautions. [facility] to [facility] on Thursday and [...] exercise given his recentdialysis and initiation of chemotherapy.I did not specifically address his diet but he may address this with our [facility] nutrition team. He will also receivechemotherapy class with our nurses in the infusion center. PRELIMINARY HISTORY (from initial consult 03/08/2020): This is a now 77-year-old male who was transferred from [place] emergency room by [facility] due to critical potassium 8.7 with elevated creatinine 11.2 and BUN 82 on 03/04/2020. We do not have any recent blood work for comparison but hehad normal creatinine in 2011. He was urgently treated for hishyperkalemia anddialysis was arranged emergently by nephrology team. He has now stabilized on dialysis and had extensive work-up for etiology of his acute renal failure with severe anemia felt to be due to anemia of renal insufficiency. Iron studies returned normal with ferritin 160, but B12 low at84 and folate low normal at 5.2. He [...] showing labral pathology of the joint but nofracture or dislocation. Myeloma labs were sent showing [...] day 0 autologous stem cell transplant 07/25/2020at [facility]. 11/26/2020: Follow-up bone marrow aspiration and biopsy 10/18/2020 for MRD evaluation shows hypocellular marrow with 0.5% plasma cells, no clonal population by flow cytometry but 0.03% kappa light chainskewing. Started Revlimid 5 mg daily for maintenance therapy early October 2020. Nondiagnostic bone marrow for MRD in spring 2021 at . Planned follow-up bone marrow biopsy for MRD at [facility] fall 2021. -- 02/05/2022: Revlimid on hold [...] starting dialysis, chemotherapy, and transplant for light chainnephropathy. 11/2020--returned to baseline weight pretransplant. GENITOURINARY: Negative for dysuria and hematuria. Improved urinary output, diagnosed in February 2020 with renal failure requiring dialysis--off dialysis 04/24/2020. Prior nephrolithiasis previously followed by Dr. Seals--recent ESWL 01/14/2022 at [place]. ENDOCRINE: Negative for cold intolerance and heat intolerance. Improvement of prior hyperglycemia with home blood sugars in the 100-200s on supplemental insulin glargine. CENTRAL NERVOUS SYSTEM: Negative for gait disturbance and headache. No focal neurologic deficits orhistory of stroke. Improvement of painful sensory neuropathy [...] bruising. Recent transfusion 2 units packed red bloodcells 01/23/2022 for hemoglobin 6.7. His only transfusion was other than 2 units red cells in October 2021. Positive for left basilic vein thrombus on Doppler ultrasound 03/12/2020--no longer requires anticoagulation. ALLERGY: Negative for environmental allergies and food allergies. [facility] - History Attestation statement: The [...] pen (Lantus Solostar U-100 Insulin) 25 unit SUBCUTDAILY 04/27/20 [History Confirmed 02/05/22] insulin lispro 100 unit/mL subcutaneous pen (Humalog KwikPen (U-100) Insulin) 6 - 16 unit SUBCUT ASDIRECTED 04/27/20 [History Confirmed 02/05/22] atorvastatin 20 mg [...] % (Auto) 66.4, Lymph % (Auto) 21.2, Randolph % (Auto) 6.9, Eos %(Auto) 5.1, Baso % (Auto) 0.4, Neut # (Auto) 2.4, Lymph # (Auto) 0.8 L, Randolph # (Auto) 0.3, Eos # (Auto) 0.2, Baso # (Auto) 0.0, Nucleated RBC % (auto) 0.1 - Impressions No imaging for review. We do not have records from his recent ESWL at [place]. 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 05/07/2020: [...] week to review results as well as evaluationwith Dr. Hall for possible stem cell transplant. 06/04/2020: Tolerating chemotherapy well other than increasing neuropathy of hands and feet. Dose reduced Velcade by 25% next cycle. Added daily ferrous sulfate. --He was referred to diabetes management clinic and sees Dr. Ochoa with regularfollow-up by Dr. Rahman since he [...] chain nephropathy. Melphalan 100mg/m2 + ASCT Day . 11/26/2020: Followup of [facility] end of therapy bone marrow biopsy 10/18/2020--no minimal residual disease. Started Revlimid maintenance 5mg daily in early October2020. 02/27/2021: No new symptoms other than rash. Slow improvement of neuropathy--titrating off gabapentin with palliative medicine. Benadryl for rash. Continue Revlimid 5mg daily. He will be due for firstpost transplant vaccines sooner--will check schedule with . [...] function is actually improved from prior values withcreatinine clearance of 50. We sent serum iron [...] kappa/lambda light chain ratio. MRD testing at [facility] was nondiagnostic and he will have repeat bone marrow biopsy here with me to send MRD testing. Next followup with me in 3 months for exam and f/u myeloma labs. We will coordinate his bone marrowbiopsy at that time. He will continue follow-up [...] be scheduled for MRD bone marrow at [facility] interventional radiology in April 2022, then follow-up with me with reviewof myeloma labs 3 months after this procedure. He still has undetectablemonoclonal spike and normalkappa/lambda light chain ratio on most recent labs. Renal function is improving since ESWL at [place] in late December. This is a moderate [...] If he has increasing transfusion requirement we mayperform bonemarrow biopsy prior to scheduled MRD bone marrow in April 2022 to be performed in interventional radiology. (3) History of hemodialysis Initiated inpatient hemodialysis 02/2020, then transitioned to outpatient hemodialysis 3 times weekly Thursday//Thursday schedule. Chemotherapy given Thursday/. I explained to patient andhis that with light chain nephropathy once we [...] autologous PBSCT given his significant response to initialmyeloma directed therapy. Continued f/u with nephrology for stage III chronic kidney disease/resolved hyperkalemia. (4) Steroid-induced diabetes mellitus Qualifiers: Encounter type: subsequent encounter Qualified Code(s): E09.9 - Drug or chemical induced diabetes mellitus without complications; T38.0X5D - Adverse effect of glucocorticoids and synthetic analogues,subsequent encounter Patsy had an excellent response of light chains but was noted to have significant hyperglycemia 300-500 fasting blood sugars. He was referred to diabetes management clinic with addition of insulin therapy that has significantly improved control of his blood sugars. Patient also had remarked on some blurred vision that improved with control of blood sugars. Continue follow- up of blood sugars during admission for transplant in early July. 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 Resumed low dose metformin and titrating downinsulin--directed by his primary physician. (5) B12 deficiency [...] vitamin D2 therapy 50,000 units orally for low25 hydroxy vitamin D stores. He may take [...] cycle with cycle 2 due to excellent reductionof kappa light chains (recommended by Dr. Hall malignanthematology). 06/04/2020: 25% DR Bortezomib (100% all other meds) due to worsening neuropathy. Last dose of bortezomib 07/02/2020 and holding daratumumab per request of Dr. Hall. 07/25/2020: Melphalan 100mg/m2 + autologous PBSCT 10/18/2020: Started Revlimid 5 mg daily maintenance after bone marrow biopsy negative for MRD. RepeatMRD bone marrow at [facility] in 3 months because spring 2021 bone [...] minutes - Review monoclonal labs and manage worseninganemia. Coordination of Care & Counseling Time: Greater than 50% of time spent with patient was for coordination of care (as documented) and [id number]-so-[id number] counseling of patient and/or family. Dictated By: Brook Huddleston MD DD/ [id number] Signed By: <Electronically signed by MD Brook Huddleston> 02/06/22 [address] [facility] Work Phone: [phone]) 644-189306-14-2022 Hospital Discharge instructions Patient Education 01/28/2022 09:14:11 Kidney Stones, Nqrh-pr-Hzzq Kidney Stones Kidney stones are rock-like masses [...] Follow these instructions at home: Medicines Take wcxq-bzc-ccgmauv and prescription medicines only as told by [...] 01/19/2009 Document Revised: 12/20/2019 Document Reviewed: 12/20/2019 [employer] Patient Education 2020 [employer]. Follow Up Care 01/20/2022 09:24:11 With:Vandana Urban MD, Patsy Payne, URO Address: [facility] [address], [place] [address]- When:Within 2 Month(s) Comments:f/u to Terazosin therapy With:Vandana Urban MD, Patsy Payne, URO Address: [facility] [address] [place] [address]- When:Within 6 Month(s) Comments:w/ patib [facility] 05-20-2022 Progress note Author Brook Huddleston [facility] January 03, 2022 9:40amNote Date/TimeMay 2021 1:38pmNorth [facility] at [address] [address] Hem/Onc Follow Up Note - OP Signed Patient: Patsy Mills MR#: [id number] : 1945 Acct:[id number] Age/Sex: 76 / M Type: REG RCR Copies to: MD Helen Jaramillo MD~ Subjective Date/Time of Service: Date of Service: 01/02/2022 Time of Service: 13:37 Chief Complaint: Patient is here today for 3 month follow up visit and go over labs. He is on hold from his Revlimid for 30 days starting 12/[address] Hall at [facility]. He is tired dizzy and worn out all the time HPI: 01/02/2022: Patsy and his are here for 3 month followup visit. She raised most of the concernsregarding worsening fatigue. He has been off He underwent a painful bone marrow by [employer] with Dr. Hall with nondiagnostic specimen. Dr. Hall recommended repeat bone marrow in the fall with MRD testing(we will set up with IR). I reviewed [...] 20 he was treated for UTI at [facility], thenadmitted August 24 to [place] with dehydration and urosepsis with discharge August 29. 09/05/2021 followed up with for continued antibiotics with Bactrim DS. Urine also returned positive for candidiasis and he was treated with fluconazole daily. He stopped his hydralazine and Lasix. --09/17/2021: He returned for labs and skeletal survey at [facility] and his potassium on blood work was markedly elevated. We contacted him and advised ER evaluation at [facility]. His potassium returned at 7.3 and he required hydration, calcium gluconate, insulin with bicarb, and had a negative Covid test. He was admitted and had unremarkable renal ultrasound, transfused 1 unit of blood for hemoglobin 7.3. Potassium and creatinine normalized and he was discharged home on 09/19/2021. Since that time he has had some improvement of energy but still haspoor appetite and mild weakness. No fever, chills, or sweats. I will have him follow-up with nephrology and Dr. Ochoa for management of his potassium and creatinine. [...] due for follow-up with Dr. Hall at [facility] malignant hematology in late [...] for post transplant vaccines. Stable kappa/lambda ratio--no M- spike serum and urine testing. Quant immunoglobulins normal. I willf/u with myeloma labs in 3 months--CBC, CMP, SPEP, quant IGs, kappa/lambda lightchains and beta2 microglobulin. He and his are in agreement with this plan. 11/26/2020: Patsy is here for followup after D86 bone marrow biopsy at [facility] on 10/18/2020. No evidence of MRD--0.5% plasma cells andno clonal plasma cells suggestive of residual myeloma. Tolerating maintenance Revlimid 5mg daily well. No bone pain and normal renal function-- hasreleased for annual nephrology followup. He is [...] up for palliative consultation (previously followed by Olamide Olivia). He has a followup bone marrow [...] completed all of his pretransplant evaluation at [facility] including cardiology visit 11 9 which showed ejection fraction 60%. I have contacted Dr. Hall who noted that today will be his last day of Velcade and we will hold his daratumumab. He was to have a COVID-19 teston 07/11/2020 for planned stem cell collection 07/17 and transplant on 07/23. I clarified with the staff at [facility] this this may be performed at [facility] and forwarded to them. His neuropathy in [...] He has now hemodialysis independent after daratumumab, dexamethasone,and Velcade with addition of Revlimid. Today he reports that he has had increased neuropathy symptoms in hisbilateral hands and feet with mild interference with activity (grade 2). We discussed a 25%dose reduction of Velcade on day 1, day [...] Dr. Hall regarding end of therapy and in1 month I will see him with follow-up myeloma studies. No other new concerns today. 05/07/2020: Patsy is here for 1 month follow-up. Outpatient hemodialysis was stopped after 04/24/2020due to excellent response. He was evaluated by Dr. Small at [facility] on 04/26/2020.Angel and his note that Dr. Hall felt that he was physiologically about 8 years younger than his chronologic age and would likely be transplant eligible if pretransplant work- updeems this feasible. He recommended continuing current daratumumab [...] no toxicities of chemotherapy. He sees Dr. Ochoa for follow-up tomorrow and maintains insulin with stabilization of hisblood sugars following with diabetes management clinic. I [...] has remarkably improved (>90% reduction past month). [place] light chains decreased from 12,000 to 42. [...] response. He received his first cycle of [place] chemotherapy 03/12/2020. --Patient tolerated initial daratumumab infusion reasonably well with brief infusion reaction (dizziness and mild wheezing) that was treated with diphenhydramine, steroids, albuterol, and Demerol forrigors. He completed remaining infusion in an outpatient bed on the inpatient hart Thursday and we ant icipate further weekly daratumumab infusions as an outpatient. [...] kappa light chains, and elevated M spike. Wediscussed in detail the pathophysiology of myeloma but she felt very anxious and overwhelmed and I r eassured her that we will readdress this at further follow-up visits. 2. Patient had a metastatic bone survey showing no areas of lytic disease or pathologic fractures. We discussed CRAB criteria for multiple myeloma diagnosisand that he meets criteria of R renal and Aanemia, but not elevated calcium or bone disease (C and B). She specifically asked is stage of multiple myeloma andwe noted that he still will require beta-2 glycoprotein (ISS) but is most consistentwith stage III. We are still awaiting his [...] could be managed byhis primary physician Dr. Ochoa and he could be referred for diabetes [...] marijuana and would discuss this with his lawn service manager whetherthis would interfere with dialysis. We will also follow closely for cytopenias and reviewed infectious precautions. [place] has a [place] who plans to visit on Thursday and [...] exercise given his recentdialysis and initiation of chemotherapy.I did not specifically address his diet but he may address this with our [facility] nutrition team. He will also receivechemotherapy class with our nurses in the infusion center. PRELIMINARY HISTORY (from initial consult 03/08/2020): This is a 76-year-old male who was transferred from [place] emergency room by [facility] due to critical potassium 8.7 with elevated creatinine 11.2 and BUN 82 on 03/04/2020. We do not have any recent blood work for comparison but he hadnormal creatinine in 2012. He was urgently treated for his hyperkalemia and dialysis was arranged emergently by nephrology team. He has now stabilized on dialysisand had extensive work-up for etiology of his acute renal failure with severe anemia felt to be dueto anemia of renal insufficiency. Iron studies returned normal with ferritin 160, but B12 low at 84and folate low normal at 5.2. He is [...] day 0 autologous stem cell transplant 07/25/2020at [facility]. 11/26/2020: Follow-up bone marrow aspiration and biopsy 10/18/2020 for MRD evaluation shows hypocellular marrow with 0.5% plasma cells, no clonal population by flow cytometry but 0.03% kappa light chainskewing. Started Revlimid 5 mg daily for maintenance therapy early October 2020. Nondiagnostic bone marrow for MRD in spring 2021 at . Planned follow-up bone marrow biopsy for MRD at [facility] fall 2021. ROS Details: All systems reviewed [...] starting dialysis, chemotherapy, and transplant for light chainnephropathy. 11/2020--returned to baseline weight pretransplant. GENITOURINARY: Negative [...] disturbance and headache. No focal neurologic deficits orhistory of stroke. Improvement of painful sensory neuropathy [...] pen (Lantus Solostar U-100 Insulin) 25 unit SUBCUTDAILY 04/27/20 [History Confirmed 01/02/22] insulin lispro 100 unit/mL subcutaneous pen (Humalog KwikPen (U-100) Insulin) 6 - 16 unit SUBCUT ASDIRECTED 04/27/20 [History Confirmed 01/02/22] atorvastatin 20 mg [...] 35.4, U Random Total Protein 45.3, U Mjnxt-8-Nzfzpqox (%) 5.4, U Random c-2-Rqzgfcbl % 13.7, U Random b-Globulin % 23.9, U Random Gamma Glob % 21.5, U Random M-Anselmo(%) Comment:, Urine Random PEP Note , Urine Immunofixation 12/26/21 16:01: Serum Total Protein 6.0, Albumin (Send Out) 2.8 L, Globulin (PEP) 3.2, Albumin/Globulin (PEP) 0.9, Dbsws-9-Rutequeul 0.5 H, Jbmuq-9-Kftipqzfa 1.0, Beta Globulins 0.9, Gamma Globulins 0.9, M-Anselmo Not observed, PEP Note , Homocysteine Cardiovas 17.5, IgG 944, IgA 250, IgM 33, Serum Immunofixation , Free [place] LC, Quant 38.9 H, Free Lambda LC, Quant 29.7 H, Free [place]/Lambda Ratio 1.31 12/26/21 16:01: PHA Creatinine Clear [...] H, MCHC 35.1, RDW 21.6 H, Plt Gpotu330 L, MPV 8.2, Neut % (Auto) 63.5, Lymph% (Auto) 20.4, Randolph % (Auto) 5.7, Eos % (Auto) 9.7, Baso % (Auto) 0.7, Neut # (Auto) 2.5, Lymph # (Auto) 0.8 L, Randolph #(Auto) 0.2, Eos # (Auto) 0.4, Baso # (Auto) 0.0, Nucleated RBC % (auto) 0.0 - Impressions Date of Service: 09/16/21 XR/XR bone survey: surveillance Plain film bone survey HISTORY: History of multiple myeloma. No lytic or sclerotic lesion identified. Multilevel spondylosis identified. Calvarium intact. No fracture seen. Atherosclerosis noted. XR/XR bone survey IMPRESSION: No bony lesions. Impression dictated by: Gary Hart M.D.09/16/2021 1:21 PM Assessment and Plan - [...] Malignant Hematology--added Revlimid 5mg qod following significant reductionof light chains in early April 2020. 05/07/2020: [...] week to review results as well as evaluationwith Dr. Hall for possible stem cell transplant. 06/04/2020: Tolerating chemotherapy well other than increasing neuropathy of hands and feet. Dose reduced Velcade by 25% next cycle. Added daily ferrous sulfate. --He was referred to diabetes management clinic and sees Dr. Ochoa with regularfollow-up by Dr. Rahman since he [...] chain nephropathy. Melphalan 100mg/m2 + ASCT Day . 11/26/2020: Followup of [facility] end of therapy bone marrow biopsy 10/18/2020--no minimal residual disease. Started Revlimid maintenance 5mg daily in early October2020. 02/27/2021: No new symptoms other than rash. Slow improvement of neuropathy--titrating off gabapentin with palliative medicine. Benadryl for rash. Continue Revlimid 5mg daily. He will be due for firstpost transplant vaccines sooner--will check schedule with . [...] function is actually improved from prior values withcreatinine clearance of 50. We sent serum iron [...] kappa/lambda light chain ratio. MRD testing at [facility] was nondiagnostic and he will have repeat bone marrow biopsy here with me to send MRD testing. Next followup with me in 3 months for exam and f/u myeloma labs. We will coordinate his bone marrowbiopsy at that time. He will continue follow-up [...] Chemotherapy given Thursday/. I explained to patient andhis that with light chain nephropathy once we [...] autologous PBSCT given his significant response to initialmyeloma directed therapy. Continued f/u with nephrology for stage III chronic kidney disease/resolved hyperkalemia. (4) Steroid-induced diabetes mellitus Qualifiers: Encounter type: subsequent encounter Qualified Code(s): E09.9 - Drug or chemical induced diabetes mellitus without complications; T38.0X5D - Adverse effect of glucocorticoids and synthetic analogues,subsequent encounter Patsy had an excellent response of light chains but was noted to have significant hyperglycemia 300-500 fasting blood sugars. He was referred to diabetes management clinic with addition of insulin therapy that has significantly improved control of his blood sugars. Patient also had remarked on some blurredvision that improved with control of blood sugars. Continue follow- up of blood sugars during admission for transplant in early July. 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 Resumed low dose metformin and titrating downinsulin--directed by his primary physician. (5) B12 deficiency [...] vitamin D2 therapy 50,000 units orally for low25 hydroxy vitamin D stores. He may take [...] cycle with cycle 2 due to excellent reductionof kappa light chains (recommended by Dr. Hall malignanthematology). 06/04/2020: 25% DR Bortezumab (100% all other meds) due to worsening neuropathy. Last dose of 4009 07/02/2020) and holding daratumumab per request of Dr. Hall. 07/25/2020: Melphalan 100mg/m2 + autologous PBSCT 10/18/2020: Started Revlimid 5 mg daily maintenance after bone marrow biopsy negative for MRD. RepeatMRD bone marrow at [facility] in 3 months because spring bone marrow was nondiagnostic. - Chemo Plan Chemo Plan (Dose, Rate, Freq): 09/25/2019: Melphalan 100mg/m2 + autologous PBSCT-->10/2020 Revlimid 5mg daily maintenance after MRD bone marrow biopsy. Goal of Treatment: Control - Time with Patient Time Spent with Patient (Follow Up Visit): 35 minutes - Review monoclonal labs and manage worseninganemia. Coordination of Care & Counseling Time: Greater than 50% of time spent with patient was for coordination of care (as documented) and [id number] counseling of patient and/or family. Dictated By: Brook Huddleston MD DD/ [id number] Signed By: <Electronically signed by MD Brook Huddleston> 01/03/22 0940 [facility] Work Phone: 1([phone]) 185-751905-20-2022 Progress note Author Brook Huddleston [facility] January 03, 2022 9:40amNote Date/TimeMay 2021 1:38pmNorth Central [facility] [place] [address] Hem/Onc Follow Up Note - OP Signed Patient: Patsy Mills MR#: [id number] : 1945 Acct:[id number] Age/Sex: 76 / M Type: REG RCR Copies to: MD Helen Jaramillo MD~ Subjective Date/Time of Service: Date of Service: 01/02/2022 Time of Service: 13:37 Chief Complaint: Patient is here today for 3 month follow up visit and go over labs. He is on hold from his Revlimid for 30 days starting 12/[address] Hall at [facility]. He is tired dizzy and worn out all the time HPI: 01/02/2022: Patsy and his are here for 3 month followup visit. She raised most of the concernsregarding worsening fatigue. He has been off He underwent a painful bone marrow by [employer] with Dr. Hall with nondiagnostic specimen. Dr. Hall recommended repeat bone marrow in the fall with MRD testing(we will set up with IR). I reviewed [...] 20 he was treated for UTI at [facility] ER, thenadmitted August 24 to [place] with dehydration and urosepsis with discharge August 29. 09/05/2021 followed up with for continued antibiotics with Bactrim DS. Urine also returned positive for candidiasis and he was treated with fluconazole daily. He stopped his hydralazine and Lasix. --09/17/2021: He returned for labs and skeletal survey at [facility] and his potassium on blood work was markedly elevated. We contacted him and advised ER evaluation at [facility]. His potassium returned at 7.3 and he required hydration, calcium gluconate, insulin with bicarb, and had a negative Covid test. He was admitted and had unremarkable renal ultrasound, transfused 1 unit of blood for hemoglobin 7.3. Potassium and creatinine normalized and he was discharged home on 09/19/2021. Since that time he has had some improvement of energy but still haspoor appetite and mild weakness. No fever, chills, or sweats. I will have him follow-up with nephrology and Dr. Ochoa for management of his potassium and creatinine. [...] due for follow-up with Dr. Hall at [facility] hematology in late October for 1 year follow-up bone marrow biopsy for MRD status. His next follow-up with ri will be in 3 months or sooner [...] for post transplant vaccines. Stable kappa/lambda ratio--no M- spike serum and urine testing. Quant immunoglobulins normal. I willf/u with myeloma labs in 3 months--CBC, CMP, SPEP, quant IGs, kappa/lambda lightchains and beta2 microglobulin. He and his are in agreement with this plan. 11/26/2020: Patsy is here for followup after D86 bone marrow biopsy at [facility] on 10/18/2020. No evidence of MRD--0.5% plasma cells andno clonal plasma cells suggestive of residual myeloma. Tolerating maintenance Revlimid 5mg daily well. No bone pain and normal renal function-- hasreleased for annual nephrology followup. He is fully vaccinated for [id number] and I contacted Dr. Hall for coordination [...] up for palliative consultation (previously followed by Olamide Olivia). He has a followup bone marrow [...] completed all of his pretransplant evaluation at [facility] including cardiology visit 06 25 which showed ejection fraction 60%. I have contacted Dr. Hall who noted that today will be his last day of Velcade and we will hold his daratumumab. He was to have a COVID-19 teston 07/11/2020 for planned stem cell collection 07/17 and transplant on 07/23. I clarified with the staff at [facility] this this may be performed at [facility] and forwarded to them. His neuropathy in [...] He has now hemodialysis independent after daratumumab, dexamethasone,and Velcade with addition of Revlimid. Today he reports that he has had increased neuropathy symptoms in hisbilateral hands and feet with mild interference with activity (grade 2). We discussed a 25%dose reduction of Velcade on day 1, day [...] Dr. Hall regarding end of therapy and in1 month I will see him with follow-up myeloma studies. No other new concerns today. 05/07/2020: Patsy is here for 1 month follow-up. Outpatient hemodialysis was stopped after 04/24/2020due to excellent response. He was evaluated by Dr. Small at [facility] on 04/26/2020.Angel and his note that Dr. Hall felt that he was physiologically about 8 years younger than his chronologic age and would likely be transplant eligible if pretransplant work- updeems this feasible. He recommended continuing current daratumumab [...] no toxicities of chemotherapy. He sees Dr. Ochoa for follow-up tomorrow and maintains insulin with stabilization of hisblood sugars following with diabetes management clinic. I [...] has remarkably improved (>90% reduction past month). [place] light chains decreased from 12,000 to 42. [...] response. He received his first cycle of combi nation chemotherapy 03/12/2020. --Patient tolerated initial daratumumab infusion reasonably well with brief infusion reaction (dizziness and mild wheezing) that was treated with diphenhydramine, steroids, albuterol, and Demerol forrigors. He completed remaining infusion in an outpatient bed on the inpatient hart Thursday and we ant icipate further weekly daratumumab infusions as an outpatient. [...] kappa light chains, and elevated M spike. Wediscussed in detail the pathophysiology of myeloma but she felt very anxious and overwhelmed and I r eassured her that we will readdress this at further follow-up visits. 2. Patient had a metastatic bone survey showing no areas of lytic disease or pathologic fractures. We discussed CRAB criteria for multiple myeloma diagnosisand that he meets criteria of R renal and Aanemia, but not elevated calcium or bone disease (C and B). She specifically asked is stage of multiple myeloma andwe noted that he still will require beta-2 glycoprotein (ISS) but is most consistentwith stage III. We are still awaiting his [...] could be managed byhis primary physician Dr. Ochoa and he could be referred for diabetes [...] marijuana and would discuss this with his lawn service manager whetherthis would interfere with dialysis. We will also follow closely for cytopenias and reviewed infectious precautions. He has a sonom [place] who plans to visit on Thursday and [...] exercise given his recentdialysis and initiation of chemotherapy.I did not specifically address his diet but he may address this with our [facility] nutrition team. He will also receivechemotherapy class with our nurses in the infusion center. PRELIMINARY HISTORY (from initial consult 03/08/2020): This is a 76-year-old male who was transferred from [place] emergency room by [facility] due to critical potassium 8.7 with elevated creatinine 11.2 and BUN 82 on 03/04/2020. We do not have any recent blood work for comparison but he hadnormal creatinine in 2012. He was urgently treated for his hyperkalemia and dialysis was arranged emergently by nephrology team. He has now stabilized on dialysisand had extensive work-up for etiology of his acute renal failure with severe anemia felt to be dueto anemia of renal insufficiency. Iron studies returned normal with ferritin 160, but B12 low at 84and folate low normal at 5.2. He is [...] day 0 autologous stem cell transplant 07/25/2020at [facility]. 11/26/2020: Follow-up bone marrow aspiration and biopsy 10/18/2020 for MRD evaluation shows hypocellular marrow with 0.5% plasma cells, no clonal population by flow cytometry but 0.03% kappa light chainskewing. Started Revlimid 5 mg daily for maintenance therapy early October 2020. Nondiagnostic bone marrow for MRD in spring 2021 at . Planned follow-up bone marrow biopsy for MRD at [facility] fall 2021. ROS Details: All systems reviewed [...] starting dialysis, chemotherapy, and transplant for light chainnephropathy. 11/2020--returned to baseline weight pretransplant. GENITOURINARY: Negative [...] disturbance and headache. No focal neurologic deficits orhistory of stroke. Improvement of painful sensory neuropathy [...] pen (Lantus Solostar U-100 Insulin) 25 unit SUBCUTDAILY 04/27/20 [History Confirmed 01/02/22] insulin lispro 100 unit/mL subcutaneous pen (Humalog KwikPen (U-100) Insulin) 6 - 16 unit SUBCUT ASDIRECTED 04/27/20 [History Confirmed 01/02/22] atorvastatin 20 mg [...] 35.4, U Random Total Protein 45.3, U Brhhh-6-Fuafuqym (%) 5.4, U Random s-6-Ixjyxxjt % 13.7, U Random b-Globulin % 23.9, U Random Gamma Glob % 21.5, U Random M-Anselmo(%) Comment:, Urine Random PEP Note , Urine Immunofixation 12/26/21 16:01: Serum Total Protein 6.0, Albumin (Send Out) 2.8 L, Globulin (PEP) 3.2, Albumin/Globulin (PEP) 0.9, Mrnme-1-Grnsmxcyt 0.5 H, Dbajf-7-Cvbrnowgi 1.0, Beta Globulins 0.9, Gamma Globulins 0.9, M-Anselmo Not observed, PEP Note , Homocysteine Cardiovas 17.5, IgG 944, IgA 250, IgM 33, Serum Immunofixation , Free [place] LC, Quant 38.9 H, Free Lambda LC, Quant 29.7 H, Free [place]/Lambda Ratio 1.31 12/26/21 16:01: PHA Creatinine Clear [...] H, MCHC 35.1, RDW 21.6 H, Plt Rdduq298 L, MPV 8.2, Neut % (Auto) 63.5, Lymph% (Auto) 20.4, Randolph % (Auto) 5.7, Eos % (Auto) 9.7, Baso % (Auto) 0.7, Neut # (Auto) 2.5, Lymph # (Auto) 0.8 L, Randolph #(Auto) 0.2, Eos # (Auto) 0.4, Baso # (Auto) 0.0, Nucleated RBC % (auto) 0.0 - Impressions Date of Service: 09/16/21 XR/XR bone survey: surveillance Plain film bone survey HISTORY: History of multiple myeloma. No lytic or sclerotic lesion identified. Multilevel spondylosis identified. Calvarium intact. No fracture seen. Atherosclerosis noted. XR/XR bone survey IMPRESSION: No bony lesions. Impression dictated by: Gary Hart M.D.09/16/2021 1:21 PM Assessment and Plan - [...] Malignant Hematology--added Revlimid 5mg qod following significant reductionof light chains in early April 2020. 05/07/2020: [...] week to review results as well as evaluationwith Dr. Hall for possible stem cell transplant. 06/04/2020: Tolerating chemotherapy well other than increasing neuropathy of hands and feet. Dose reduced Velcade by 25% next cycle. Added daily ferrous sulfate. --He was referred to diabetes management clinic and sees Dr. Ochoa with regularfollow-up by Dr. Rahman since he [...] chain nephropathy. Melphalan 100mg/m2 + ASCT Day . 11/26/2020: Followup of [facility] end of therapy bone marrow biopsy 10/18/2020--no minimal residual disease. Started Revlimid maintenance 5mg daily in early October2020. 02/27/2021: No new symptoms other than rash. Slow improvement of neuropathy--titrating off gabapentin with palliative medicine. Benadryl for rash. Continue Revlimid 5mg daily. He will be due for firstpost transplant vaccines sooner--will check schedule with . [...] function is actually improved from prior values withcreatinine clearance of 50. We sent serum iron [...] kappa/lambda light chain ratio. MRD testing at [facility] was nondiagnostic and he will have repeat bone marrow biopsy here with ri to send MRD testing. Next followup with me in 3 months for exam and f/u myeloma labs. We will coordinate his bone marrowbiopsy at that time. He will continue follow-up [...] Chemotherapy given Thursday/. I explained to patient andhis that with light chain nephropathy once we [...] autologous PBSCT given his significant response to initialmyeloma directed therapy. Continued f/u with nephrology for stage III chronic kidney disease/resolved hyperkalemia. (4) Steroid-induced diabetes mellitus Qualifiers: Encounter type: subsequent encounter Qualified Code(s): E09.9 - Drug or chemical induced diabetes mellitus without complications; T38.0X5D - Adverse effect of glucocorticoids and synthetic analogues,subsequent encounter Patsy had an excellent response of light chains but was noted to have significant hyperglycemia 300-500 fasting blood sugars. He was referred to diabetes management clinic with addition of insulin therapy that has significantly improved control of his blood sugars. Patient also had remarked on some blurredvision that improved with control of blood sugars. Continue follow- up of blood sugars during admission for transplant in early July. 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 Resumed low dose metformin and titrating downinsulin--directed by his primary physician. (5) B12 deficiency [...] vitamin D2 therapy 50,000 units orally for low25 hydroxy vitamin D stores. He may take [...] cycle with cycle 2 due to excellent reductionof kappa light chains (recommended by Dr. Hall malignanthematology). 06/04/2020: 25% DR Bortezumab (100% all other meds) due to worsening neuropathy. Last dose of 4009 07/02/2020) and holding daratumumab per request of Dr. Hall. 07/25/2020: Melphalan 100mg/m2 + autologous PBSCT 10/18/2020: Started Revlimid 5 mg daily maintenance after bone marrow biopsy negative for MRD. RepeatMRD bone marrow at [facility] in 3 months because spring bone marrow was nondiagnostic. - Chemo Plan Chemo Plan (Dose, Rate, Freq): 09/25/2019: Melphalan 100mg/m2 + autologous PBSCT-->10/2020 Revlimid 5mg daily maintenance after MRD bone marrow biopsy. Goal of Treatment: Control - Time with Patient Time Spent with Patient (Follow Up Visit): 35 minutes - Review monoclonal labs and manage worseninganemia. Coordination of Care & Counseling Time: Greater than 50% of time spent with patient was for coordination of care (as documented) and [id number] counseling of patient and/or family. Dictated By: Brook Huddleston MD DD/ [id number] Signed By: <Electronically signed by MD Brook Huddleston> 01/03/22 6866 [facility] Work Phone: 1([phone]) 144-163004-26-2022 Hospital Discharge instructions Patient Education 12/10/2021 10:54:55 [...] urethra. Follow these instructions at home: Take cmrd-huk-hfbulfr and prescription medicines only as told by [...] 08/03/2006 Document Revised: 06/28/2019 Document Reviewed: 09/07/2017 [employer] Patient Education 2020 [employer]. Follow Up Care 11/13/2020 14:21:59 With:Vandana Urban MD, Patsy Payne URO Address: [facility] [address] [place] [address]- When: Unknown Comments:after procedure [facility] 04-14-2022 NotePre-procedure Verification and Time Out: Pre-Procedure Verification and Time Out: Procedure Locationprocedure area HUDDLE - Pre-procedure Verificationcompleted TIME OUT - Final Verificationcompleted immediately prior to procedure start DEBRIEFcompleted General Information: Anesthesia Critical Care: Non-Anesthesia Post-Procedure Diagnosis: Myeloma Procedure Name: Bone marrow biopsy Findings: grossly normal anatomy Procedure performed by: ri Java Security Engineer(s): Brook Restrepo Estimated Blood Loss (mL): none [...] EMR. Tolerance: good Electronic Signatures: Suly Motta (MEAT CUTTING BLOCK REPAIRER-LEAD CARGOMAN) (Signed 28-Nov-2021 10:51) Authored: Pre-procedure Verification and Time Out, General Information, Procedure Details, Note Completion Last Updated: 28-Nov-2021 10:51 by Suly Motta (MEAT CUTTING BLOCK REPAIRER-LEAD CARGOMAN)[facility]04-14-2022 NoteClinic Note: Education Assessment: Learning BarriersNo barriers [...] Last Updated: 28-Nov-2021 10:36 by Violetta Bundy (EVY)[facility] 10-29-2021 Evaluation note* Encounter Date Diagnosis Assessment Notes Treatment Notes Treatment Clinical Notes Oct, RINA (acute kidney injury) (ICD-1 0 - N17.9) had RINA Aug 2021 from prerenal related to dehydration and low BP. Kidney function improved with RBCtransfusion and IVF. Cr is 1.1 mg./dl as per yesterday lab currently off lasix 15 Mar, 2022Hypertensive chronic kidney disease w stg 1-4/unsp chr kdny (ICD-10 - I12.9) BP is well controlled off hydralazine. No need for BP meds Oct,Type 2 diabetes mellitus with hyperglycemia (ICD-10 - E11.65) Diabetes seem well controlled. Last hemoglobin A1c 7.3% Oct,hronic kidney disease, stage III (moderate) (ICD-10 - [...] no need for diuretics Avoid NSAIDs Follow-up Oct,HTN (hypertension) (ICD-10 - I10) No need for blood pressure medicine Oct,Multiple myeloma (ICD-10 - C90.00) Patient was diagnosed with multiple myeloma on March 04, 2020. He has a good response to chemotherapy. He had stem cell transplant at on July 23, 2020. Oct,2Diabetes mellitus (ICD-10 - E11.9) He stated that diabetes is better on insulin. He is of dexamethasone. Oct,Nephrolithiasis (ICD-10 - N20.0) Patient had history of nephrolithiasis. Bilateral kidney ultrasound that was done at the time of admission on March 04, 2020 showed no evidence of kidney stones or obstructive uropathy. Oct,nemia, unspecified type (ICD-10 - D64.9) Patient has symptomatic anemia with dizziness and fatigue. Hemoglobin from lab yesterday 6.9 g/dL. I will order 2 RBCs units transfusion. Patient is also following the infusion center for B12 injection. He follows with Dr. Rosenberg Oct,Hyperkalemia (ICD-10 - E87.5) Patient had RINA with hyperkalemia in August 2021. Hyperkalemia was likely from RINA and being on potassium supplement. This was treated medically. Last potassium level 3.4 mmol/L from yesterday lab. I will continue holding potassium supplement as the patient is now off [employer] Other 02-18-2022 Progress note Author Brook Huddleston [facility] October 04, 2021 1:57pmNote Date/TimeFebruary 2021 1:23pmNorth [facility] [address] [address] Hem/Onc Follow Up Note - OP Signed Patient: Patsy Mills MR#: [id number] : 1945 Acct:[id number] Age/Sex: 76 / M Type: REG RCR [...] He has had recent hospital stay at [facility] HPI: 10/03/2021: Patsy is here for 4-month follow-up of light chain myeloma. His brought me a thorough list of his recent hospitalizations since early August 2021. Recurrent weakness and dizziness as per chief complaint. --August 20 he was treated for UTI at [facility] ER, thenadmitted August 24 to [place] with dehydration and urosepsis with discharge August 29. 09/05/2021 followed up with for continued antibiotics with Bactrim DS. Urine also returned positive for candidiasis and he was treated with fluconazole daily. He stopped his hydralazine and Lasix. --09/17/2021: He returned for labs and skeletal survey at [facility] and his potassium on blood work was markedly elevated. We contacted him and advised ER evaluation at [facility]. His potassium returned at 7.3 and he required hydration, calcium gluconate, insulin with bicarb, and had a negative Covid test. He was admitted and had unremarkable renal ultrasound, transfused 1 unit of blood for hemoglobin 7.3. Potassium and creatinine normalized and he was discharged home on 09/19/2021. Since that time he has had some improvement of energy but still haspoor appetite and mild weakness. No fever, chills, or sweats. I will have him follow-up with nephrology and Dr. Ochoa for management of his potassium and creatinine. [...] due for follow-up with Dr. Hall at [facility] hematology in late October for 1 year [...] for post transplant vaccines. Stable kappa/lambda ratio--no M- spike serum and urine testing. Quant immunoglobulins normal. I will f/u with myeloma labs in 3 months--CBC, CMP, SPEP, quant IGs, kappa/lambda light chains and beta2 microglobulin. He and his are in agreement with this plan. 11/26/2020: Patsy is here for followup after D86 bone marrow biopsy at [facility] on 10/18/2020. No evidence of MRD--0.5% plasma cells andno clonal plasma cells suggestive of residual myeloma. Tolerating maintenance Revlimid 5mg daily well. No bone pain and normal renal function-- hasreleased for annual nephrology followup. He is fully vaccinated for [id number] and I contacted Dr. Hall for coordination [...] up for palliative consultation (previously followed by Olamide Olivia). He has a followup bone marrow [...] completed all of his pretransplant evaluation at [facility] including cardiology visit 11 9 which showed ejection fraction 60%. I have contacted Dr. Hall who noted that today will be his last day of Velcade and we will hold his daratumumab. He was to have a COVID-19 test on 07/11/2020 for planned stem cell collection 07/17 and transplant on 07/23. I clarified with the staff at [facility] this this may be performed at [facility] and forwarded to them. His neuropathy in [...] He has now hemodialysis independent after daratumumab, dexamethasone,and Velcade with addition of Revlimid. Today he reports that he has had increased neuropathy symptoms in hisbilateral hands and feet with mild interference with activity (grade 2). We discussed a 25%dose reduction of Velcade on day 1, day [...] Dr. Hall regarding end of therapy and in1 month I will see him with follow-up myeloma studies. No other new concerns today. 05/07/2020: aPtsy is here for 1 month follow-up. Outpatient hemodialysis was stopped after 04/24/2020due to excellent response. He was evaluated by Dr. Small at [facility] on 04/26/2020.Angel and his note that Dr. Hall felt that he was physiologically about 8 years younger than his chronologic age and would likely be transplant eligible if pretransplant work- updeems this feasible. He recommended continuing current daratumumab [...] no toxicities of chemotherapy. He sees Dr. Ochoa for follow-up tomorrow and maintains insulin with stabilization of hisblood sugars following with diabetes management clinic. I [...] has remarkably improved (>90% reduction past month). [place] light chains decreased from 12,000 to 42. [...] response. He received his first cycle of combi nation chemotherapy 03/12/2020. --Patient tolerated initial daratumumab infusion reasonably well with brief infusion reaction (dizziness and mild wheezing) that was treated with diphenhydramine, steroids, albuterol, and Demerol forrigors. He completed remaining infusion in an outpatient bed on the inpatient hart Thursday and we ant icipate further weekly daratumumab infusions as an outpatient. [...] kappa light chains, and elevated M spike. Wediscussed in detail the pathophysiology of myeloma but she felt very anxious and overwhelmed and I r eassured her that we will readdress this at further follow-up visits. 2. Patient had a metastatic bone survey showing no areas of lytic disease or pathologic fractures. We discussed CRAB criteria for multiple myeloma diagnosisand that he meets criteria of R renal and Aanemia, but not elevated calcium or bone disease (C and B). She specifically asked is stage of multiple myeloma andwe noted that he still will require beta-2 glycoprotein (ISS) but is most consistentwith stage III. We are still awaiting his [...] could be managed byhis primary physician Dr. Ochoa and he could be referred for diabetes [...] marijuana and would discuss this with his lawn service manager whetherthis would interfere with dialysis. We will also follow closely for cytopenias and reviewed infectious precautions. He has a [facility] who plans to visit on Thursday and [...] exercise given his recentdialysis and initiation of chemotherapy.I did not specifically address his diet but he may address this with our [facility] nutrition team. He will also receivechemotherapy class with our nurses in the infusion center. PRELIMINARY HISTORY (from initial consult 03/08/2020): This is a 76-year-old male who was transferred from [place] emergency room by [facility] due to critical potassium 8.7 with elevated creatinine 11.2 and BUN 82 on 03/04/2020. We do not have any recent blood work for comparison but he hadnormal creatinine in 2011. He was urgently treated for his hyperkalemia and dialysis was arranged emergently by nephrology team. He has now stabilized on dialysisand had extensive work-up for etiology of his acute renal failure with severe anemia felt to be dueto anemia of renal insufficiency. Iron studies returned normal with ferritin 160, but B12 low at 84and folate low normal at 5.2. He is [...] to be coordinated with nursing staffdue to [facility]-19 visitor restriction policy. - Summary of Therapies [...] day 0 autologous stem cell transplant 07/25/2020at [facility]. 11/26/2020: Follow-up bone marrow aspiration and biopsy 10/18/2020 for MRD evaluation shows hypocellular marrow with 0.5% plasma cells, no clonal population by flow cytometry but 0.03% kappa light chainskewing. Started Revlimid 5 mg daily for maintenance [...] starting dialysis, chemotherapy, and transplant for light chainnephropathy. 11/2020--returned to baseline weight pretransplant. GENITOURINARY: Negative [...] disturbance and headache. No focal neurologic deficits orhistory of stroke. Improvement of painful sensory neuropathy [...] Negative for environmental allergies and food allergies. [facility] - Medical History Medical History: [...] pen (Lantus Solostar U-100 Insulin) 12 unit SUBCUTDAILY 04/27/20 [History Confirmed 05/30/21] insulin lispro 100 unit/mL subcutaneous pen (Humalog KwikPen (U-100) Insulin) 6 - 16 unit SUBCUT ASDIRECTED 04/27/20 [History Confirmed 05/30/21] atorvastatin 20 mg [...] recent urinary infections. Serum kappa and lambda lig ht chains were both elevated to 62.1 and 38.7 respectively with normal kappa/lambda ratio 1.6. - Impressions Plain film bone survey HISTORY: History of multiple myeloma. No lytic or sclerotic lesion identified. Multilevel spondylosis identified. Calvarium intact. No fracture seen. Atherosclerosis noted. XR/XR bone survey IMPRESSION: No bony lesions. Impression dictated by: Gary Hart M.D.09/16/2021 1:21 PM Assessment and Plan - [...] Malignant Hematology--added Revlimid 5mg qod following significant reductionof light chains in early April 2020. 05/07/2020: [...] week to review results as well as evaluationwith Dr. Hall for possible stem cell transplant. 06/04/2020: Tolerating chemotherapy well other than increasing neuropathy of hands and feet. Dose reduced Velcade by 25% next cycle. Added daily ferrous sulfate. --He was referred to diabetes management clinic and sees Dr. Ochoa with regularfollow-up by Dr. Rahman since he [...] chain nephropathy. Melphalan 100mg/m2 + ASCT Day . 11/26/2020: Followup of [facility] end of therapy bone marrow biopsy 10/18/2020--no minimal residual disease. Started Revlimid maintenance 5mg daily in early October2020. 02/27/2021: No new symptoms other than rash. Slow improvement of neuropathy--titrating off gabapentin with palliative medicine. Benadryl for rash. Continue Revlimid 5mg daily. He will be due for firstpost transplant vaccines sooner--will check schedule with . [...] Revlimid 5 mg daily. Next followup with ri in 3 months for exam and f/u [...] from 400mg/300mg/400mg to now 200/100/200 off over thepast 3 months--will continue to followup with palliative medicine as needed. (3) Iron deficiency anemia Prior leg cramps with low iron saturation. Ferritin inappropriately normal due to inflammation frommyeloma. Daily oral iron added due to symptomatic leg cramps and persistent anemia. He reports transfusion due to hemoglobin 7.7 at outside facility and this may be managed by his primary physician. (4) History of hemodialysis Initiated inpatient hemodialysis 02/2020, then transitioned to outpatient hemodialysis 3 times weekly Thursday//Thursday schedule. Chemotherapy given Thursday/. I explained to patient andhis that with light chain nephropathy once we [...] autologous PBSCT given his significant response to initialmyeloma directed therapy. Continued f/u with nephrology for recent hyperkalemia. (5) Steroid-induced diabetes mellitus Qualifiers: Encounter type: subsequent encounter Qualified Code(s): E09.9 - Drug or chemical induced diabetes mellitus without complications; T38.0X5D - Adverse effect of glucocorticoids and synthetic analogues,subsequent encounter Patsy had an excellent response of light chains but was noted to have significant hyperglycemia 300-500 fasting blood sugars. He was referred to diabetes management clinic with addition of insulin therapy that has significantly improved control of his blood sugars. Patient also had remarked on some blurred vision that improved with control of blood sugars. Continue follow- up of blood sugars during admission for transplant in early July. 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 Resumed low dose metformin and titrating downinsulin--directed by his primary physician. (6) B12 deficiency [...] vitamin D2 therapy 50,000 units orally for low25 hydroxy vitamin D stores. He may take supplemental calcium once daily. (7) Encounter for chemotherapy management Started cycle 1 day 1 03/12/2020: Daratumumab 16 mg/kg IV weekly, bortezomib 1.3 mg/kg subcu twice weekly, dexamethasone 40 mg weekly. We added Revlimid 5 mg every other day of each 21-day cycle with cycle 2 due to excellent reductionof kappa light chains (recommended by Dr. Hall [...] for coordination of care (as documented) and [id number] counseling of patient and/or family. Dictated By: Brook Huddleston MD DD/ 1322 Signed By: <Electronically signed by MD Brook Huddleston> 10/04/21 [address] [facility] Work Phone: [phone]) 987-739202-18-2022 Progress note Author Brook Huddleston [facility] October 04, 2021 1:57pmNote Date/TimeFebruary 2021 1:23pmNorth [facility] at [address] [place] [address] Hem/Onc Follow Up Note - OP Signed Patient: Patsy Mills MR#: [id number] : 1945 Acct:[id number] Age/Sex: 76 / M Type: REG RCR [...] He has had recent hospital stay at [facility] HPI: 10/03/2021: Patsy is here for 4-month follow-up of light chain myeloma. His brought me a thorough list of his recent hospitalizations since early August 2021. Recurrent weakness and dizziness as per chief complaint. --August 20 he was treated for UTI at [facility] ER, thenadmitted August 24 to [place] with dehydration and urosepsis with discharge August 29. 09/05/2021 followed up with for continued antibiotics with Bactrim DS. Urine also returned positive for candidiasis and he was treated with fluconazole daily. He stopped his hydralazine and Lasix. --09/17/2021: He returned for labs and skeletal survey at [facility] and his potassium on blood work was markedly elevated. We contacted him and advised ER evaluation at [facility]. His potassium returned at 7.3 and he required hydration, calcium gluconate, insulin with bicarb, and had a negative Covid test. He was admitted and had unremarkable renal ultrasound, transfused 1 unit of blood for hemoglobin 7.3. Potassium and creatinine normalized and he was discharged home on 09/19/2021. Since that time he has had some improvement of energy but still haspoor appetite and mild weakness. No fever, chills, or sweats. I will have him follow-up with nephrology and Dr. Ochoa for management of his potassium and creatinine. [...] due for follow-up with Dr. Hall at [facility] hematology in late October for 1 year [...] for post transplant vaccines. Stable kappa/lambda ratio--no M- spike serum and urine testing. Quant immunoglobulins normal. I will f/u with myeloma labs in 3 months--CBC, CMP, SPEP, quant IGs, kappa/lambda light chains and beta2 microglobulin. He and his are in agreement with this plan. 11/26/2020: Patsy is here for followup after D86 bone marrow biopsy at [facility] on 10/18/2020. No evidence of MRD--0.5% plasma cells andno clonal plasma cells suggestive of residual myeloma. Tolerating maintenance Revlimid 5mg daily well. No bone pain and normal renal function-- hasreleased for annual nephrology followup. He is fully vaccinated for [id number] and I contacted Dr. Hall for coordination [...] up for palliative consultation (previously followed by Olamide Olivia). He has a followup bone marrow [...] completed all of his pretransplant evaluation at [facility] including cardiology visit 11 which showed ejection fraction 60%. I have contacted Dr. Hall who noted that today will be his last day of Velcade and we will hold his daratumumab. He was to have a COVID-19 test on 07/11/2020 for planned stem cell collection 07/17 and transplant on 07/23. I clarified with the staff at [facility] this this may be performed at [facility] and forwarded to them. His neuropathy in [...] He has now hemodialysis independent after daratumumab, dexamethasone,and Velcade with addition of Revlimid. Today he reports that he has had increased neuropathy symptoms in hisbilateral hands and feet with mild interference with activity (grade 2). We discussed a 25%dose reduction of Velcade on day 1, day [...] Dr. Hall regarding end of therapy and in1 month I will see him with follow-up myeloma studies. No other new concerns today. 05/07/2020: Patsy is here for 1 month follow-up. Outpatient hemodialysis was stopped after 04/24/2020due to excellent response. He was evaluated by Dr. Small at [facility] on 04/26/2020.Angel and his note that Dr. Hall felt that he was physiologically about 8 years younger than his chronologic age and would likely be transplant eligible if pretransplant work- updeems this feasible. He recommended continuing current daratumumab [...] no toxicities of chemotherapy. He sees Dr. Ochoa for follow-up tomorrow and maintains insulin with stabilization of hisblood sugars following with diabetes management clinic. I [...] has remarkably improved (>90% reduction past month). [place] light chains decreased from 12,000 to 42. [...] response. He received his first cycle of combi nation chemotherapy 03/12/2020. --Patient tolerated initial daratumumab infusion reasonably well with brief infusion reaction (dizziness and mild wheezing) that was treated with diphenhydramine, steroids, albuterol, and Demerol forrigors. He completed remaining infusion in an outpatient bed on the inpatient hart Thursday and we ant icipate further weekly daratumumab infusions as an outpatient. [...] kappa light chains, and elevated M spike. Wediscussed in detail the pathophysiology of myeloma but she felt very anxious and overwhelmed and I r eassured her that we will readdress this at further follow-up visits. 2. Patient had a metastatic bone survey showing no areas of lytic disease or pathologic fractures. We discussed CRAB criteria for multiple myeloma diagnosisand that he meets criteria of R renal and Aanemia, but not elevated calcium or bone disease (C and B). She specifically asked is stage of multiple myeloma andwe noted that he still will require beta-2 glycoprotein (ISS) but is most consistentwith stage III. We are still awaiting his [...] could be managed byhis primary physician Dr. Ochoa and he could be referred for diabetes [...] marijuana and would discuss this with his lawn service manager whetherthis would interfere with dialysis. We will also follow closely for cytopenias and reviewed infectious precautions. He has a [facility] who plans to visit on Thursday and [...] exercise given his recentdialysis and initiation of chemotherapy.I did not specifically address his diet but he may address this with our [facility] nutrition team. He will also receivechemotherapy class with our nurses in the infusion center. PRELIMINARY HISTORY (from initial consult 03/08/2020): This is a 76-year-old male who was transferred from [place] emergency room by [facility] due to critical potassium 8.7 with elevated creatinine 11.2 and BUN 82 on 03/04/2020. We do not have any recent blood work for comparison but he hadnormal creatinine in 2011. He was urgently treated for his hyperkalemia and dialysis was arranged emergently by nephrology team. He has now stabilized on dialysisand had extensive work-up for etiology of his acute renal failure with severe anemia felt to be dueto anemia of renal insufficiency. Iron studies returned normal with ferritin 160, but B12 low at 84and folate low normal at 5.2. He is [...] day 0 autologous stem cell transplant 07/25/2020at [facility]. 11/26/2020: Follow-up bone marrow aspiration and biopsy 10/18/2020 for MRD evaluation shows hypocellular marrow with 0.5% plasma cells, no clonal population by flow cytometry but 0.03% kappa light chainskewing. Started Revlimid 5 mg daily for maintenance [...] starting dialysis, chemotherapy, and transplant for light chainnephropathy. 11/2020--returned to baseline weight pretransplant. GENITOURINARY: Negative [...] disturbance and headache. No focal neurologic deficits orhistory of stroke. Improvement of painful sensory neuropathy [...] Negative for environmental allergies and food allergies. [facility] - Medical History Medical History: [...] pen (Lantus Solostar U-100 Insulin) 12 unit SUBCUTDAILY 04/27/20 [History Confirmed 05/30/21] insulin lispro 100 unit/mL subcutaneous pen (Humalog KwikPen (U-100) Insulin) 6 - 16 unit SUBCUT ASDIRECTED 04/27/20 [History Confirmed 05/30/21] atorvastatin 20 mg [...] recent urinary infections. Serum kappa and lambda lig ht chains were both elevated to 62.1 and 38.7 respectively with normal kappa/lambda ratio 1.6. - Impressions Plain film bone survey HISTORY: History of multiple myeloma. No lytic or sclerotic lesion identified. Multilevel spondylosis identified. Calvarium intact. No fracture seen. Atherosclerosis noted. XR/XR bone survey IMPRESSION: No bony lesions. Impression dictated by: Gary Hart M.D.09/16/2021 1:21 PM Assessment and Plan - [...] Malignant Hematology--added Revlimid 5mg qod following significant reductionof light chains in early April 2020. 05/07/2020: [...] week to review results as well as evaluationwith Dr. Hall for possible stem cell transplant. 06/04/2020: Tolerating chemotherapy well other than increasing neuropathy of hands and feet. Dose reduced Velcade by 25% next cycle. Added daily ferrous sulfate. --He was referred to diabetes management clinic and sees Dr. Ochoa with regularfollow-up by Dr. Rahman since he [...] chain nephropathy. Melphalan 100mg/m2 + ASCT Day . 11/26/2020: Followup of [facility] end of therapy bone marrow biopsy 10/18/2020--no minimal residual disease. Started Revlimid maintenance 5mg daily in early October2020. 02/27/2021: No new symptoms other than rash. Slow improvement of neuropathy--titrating off gabapentin with palliative medicine. Benadryl for rash. Continue Revlimid 5mg daily. He will be due for firstpost transplant vaccines sooner--will check schedule with . [...] Revlimid 5 mg daily. Next followup with ri in 3 months for exam and f/u [...] from 400mg/300mg/400mg to now 200/100/200 off over thepast 3 months--will continue to followup with palliative medicine as needed. (3) Iron deficiency anemia Prior leg cramps with low iron saturation. Ferritin inappropriately normal due to inflammation frommyeloma. Daily oral iron added due to symptomatic leg cramps and persistent anemia. He reports transfusion due to hemoglobin 7.7 at outside facility and this may be managed by his primary physician. (4) History of hemodialysis Initiated inpatient hemodialysis 02/2020, then transitioned to outpatient hemodialysis 3 times weekly Thursday//Thursday schedule. Chemotherapy given Thursday/. I explained to patient andhis that with light chain nephropathy once we [...] autologous PBSCT given his significant response to initialmyeloma directed therapy. Continued f/u with nephrology for recent hyperkalemia. (5) Steroid-induced diabetes mellitus Qualifiers: Encounter type: subsequent encounter Qualified Code(s): E09.9 - Drug or chemical induced diabetes mellitus without complications; T38.0X5D - Adverse effect of glucocorticoids and synthetic analogues,subsequent encounter Patsy had an excellent response of light chains but was noted to have significant hyperglycemia 300-500 fasting blood sugars. He was referred to diabetes management clinic with addition of insulin therapy that has significantly improved control of his blood sugars. Patient also had remarked on some blurred vision that improved with control of blood sugars. Continue follow- up of blood sugars during admission for transplant in early July. 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 Resumed low dose metformin and titrating downinsulin--directed by his primary physician. (6) B12 deficiency [...] vitamin D2 therapy 50,000 units orally for low25 hydroxy vitamin D stores. He may take supplemental calcium once daily. (7) Encounter for chemotherapy management Started cycle 1 day 1 03/12/2020: Daratumumab 16 mg/kg IV weekly, bortezomib 1.3 mg/kg subcu twice weekly, dexamethasone 40 mg weekly. We added Revlimid 5 mg every other day of each 21-day cycle with cycle 2 due to excellent reductionof kappa light chains (recommended by Dr. Hall [...] for coordination of care (as documented) and vowc-mo-ngit counseling of patient and/or family. Dictated By: Brook Huddleston MD DD/ 1322 Signed By: <Electronically signed by MD Brook Huddleston> 10/04/21 [address] [facility] Work Phone: [phone]) 262-425910-15-2021 Progress note Author Brook Huddleston [facility] May 31, 2021 5:42pmNote Date/TimeOct2020 2:50pmNorth [facility] at [address] [address] Hem/Onc Follow Up Note - OP Signed Patient: Patsy Mills MR#: [id number] : 1945 Acct:[id number] Age/Sex: 76 / M Type: REG RCR Copies to: MD Helen Jaramillo MD~ Subjective Date/Time of Service: Date of Service: 05/30/2021 Time of Service: 14:49 Chief Complaint: Patient is here for a 3 month follow up [facility] labs for review. Patient has questions about [...] for post transplant vaccines. Stable kappa/lambda ratio--no M- spike serum and urine testing. Quant immunoglobulins normal. I will f/u with myeloma labs in 3 months--CBC, CMP, SPEP, quant IGs, kappa/lambda light chains and beta2 microglobulin. He and his are in agreement with this plan. 11/26/2020: Patsy is here for followup after D86 bone marrow biopsy at [facility] on 10/18/2020. No evidence of MRD--0.5% plasma cells andno clonal plasma cells suggestive of residual myeloma. Tolerating maintenance Revlimid 5mg daily well. No bone pain and normal renal function-- hasreleased for annual nephrology followup. He is fully vaccinated for [id number] and I contacted Dr. Hall for coordination [...] up for palliative consultation (previously followed by Olamide Olivia). He has a followup bone marrow [...] completed all of his pretransplant evaluation at [facility] including cardiology visit 11 9 which showed ejection fraction 60%. I have contacted Dr. Hall who noted that today will be his last day of Velcade and we will hold his daratumumab. He was to have a COVID-19 teston 07/11/2020 for planned stem cell collection 07/17 and transplant on 07/23. I clarified with the staff at [facility] this this may be performed at [facility] and forwarded to them. His neuropathy in [...] He has now hemodialysis independent after daratumumab, dexamethasone,and Velcade with addition of Revlimid. Today he reports that he has had increased neuropathy symptoms in hisbilateral hands and feet with mild interference with activity (grade 2). We discussed a 25%dose reduction of Velcade on day 1, day [...] Dr. Hall regarding end of therapy and in1 month I will see him with follow-up myeloma studies. No other new concerns today. 05/07/2020: Patsy is here for 1 month follow-up. Outpatient hemodialysis was stopped after 04/24/2020due to excellent response. He was evaluated by Dr. Small at [facility] on 04/26/2020.Angel and his note that Dr. Hall felt that he was physiologically about 8 years younger than his chronologic age and would likely be transplant eligible if pretransplant work- updeems this feasible. He recommended continuing current daratumumab [...] no toxicities of chemotherapy. He sees Dr. Ochoa for follow-up tomorrow and maintains insulin with stabilization of hisblood sugars following with diabetes management clinic. I [...] has remarkably improved (>90% reduction past month). [place] light chains decreased from 12,000 to 42. [...] response. He received his first cycle of [facility] chemotherapy 03/12/2020. --Patient tolerated initial daratumumab infusion reasonably well with brief infusion reaction (dizziness and mild wheezing) that was treated with diphenhydramine, steroids, albuterol, and Demerol forrigors. He completed remaining infusion in an outpatient bed on the inpatient hart Thursday and we ant icipate further weekly daratumumab infusions as an outpatient. [...] kappa light chains, and elevated M spike. Wediscussed in detail the pathophysiology of myeloma but she felt very anxious and overwhelmed and I r eassured her that we will readdress this at further follow-up visits. 2. Patient had a metastatic bone survey showing no areas of lytic disease or pathologic fractures. We discussed CRAB criteria for multiple myeloma diagnosisand that he meets criteria of R renal and Aanemia, but not elevated calcium or bone disease (C and B). She specifically asked is stage of multiple myeloma andwe noted that he still will require beta-2 glycoprotein (ISS) but is most consistentwith stage III. We are still awaiting his [...] could be managed byhis primary physician Dr. Ochoa and he could be referred for diabetes [...] marijuana and would discuss this with his lawn service manager whetherthis would interfere with dialysis. We will also follow closely for cytopenias and reviewed infectious precautions. [facility] and [...] exercise given his recentdialysis and initiation of chemotherapy.I did not specifically address his diet but he may address this with our [facility] nutrition team. He will also receivechemotherapy class with our nurses in the infusion center. PRELIMINARY HISTORY (from initial consult 03/08/2020): This is a 76-year-old male who was transferred from [place] emergency room by [facility] due to critical potassium 8.7 with elevated creatinine 11.2 and BUN 82 on 03/04/2020. We do not have any recent blood work for comparison but he hadnormal creatinine in 2011. He was urgently treated for his hyperkalemia and dialysis was arranged emergently by nephrology team. He has now stabilized on dialysisand had extensive work-up for etiology of his acute renal failure with severe anemia felt to be dueto anemia of renal insufficiency. Iron studies returned normal with ferritin 160, but B12 low at 84and folate low normal at 5.2. He is [...] to be coordinated with nursing staffdue to [facility]. - Summary of Therapies [...] day 0 autologous stem cell transplant 07/25/2020at [facility]. 11/26/2020: Follow-up bone marrow aspiration and biopsy 10/18/2020 for MRD evaluation shows hypocellular marrow with 0.5% plasma cells, no clonal population by flow cytometry but 0.03% kappa light chainskewing. Started Revlimid 5 mg daily for maintenance [...] starting dialysis, chemotherapy, and transplant for light chainnephropathy. 11/2020--returned to baseline weight pretransplant. GENITOURINARY: Negative [...] disturbance and headache. No focal neurologic deficits orhistory of stroke. Improvement of painful sensory neuropathy [...] pen (Lantus Solostar U-100 Insulin) 12 unit SUBCUTDAILY 04/27/20 [History Confirmed 05/30/21] insulin lispro 100 unit/mL subcutaneous pen (Humalog KwikPen (U-100) Insulin) 6 - 16 unit SUBCUT ASDIRECTED 04/27/20 [History Confirmed 05/30/21] hydralazine 50 mg [...] 33.0, U Random Total Protein <4.0, U Uhtlc-3-Lscqwgdm (%) 3.1,U Random e-8-Symcrbpk % 13.7, U Random b-Globulin % 26.4, U Random Gamma Glob % 23.7, U Random M-Anslemo (%) Not observed, Urine Random PEP Note , Urine Immunofixation 05/24/21 14:07: Serum Total Protein 6.4, Albumin (Send Out) 3.3, Globulin (PEP) 3.1, Albumin/Globulin (PEP) 1.1, Eqyrg-1-Kdpkhulaj 0.3, Gpidd-9-Xeyfgdlbe 0.9, Beta Globulins 0.9, Alzi-0-Yuivnnicyiwlq8.8 H, Gamma Globulins 1.0, M-Anselmo Comment:, PEP Note , IgG 944, IgA 137, IgM 29, Serum Immunofixation Comment:, Free [place] LC, Quant 32.7 H, Free Lambda LC, Quant 21.3, Free [place]/Lambda Ratio1.54 05/24/21 14:07: PHA Creatinine Clear 78.43, Sodium 136, Potassium 4.1, Chloride 105, Carbon Tgadove57.6, BUN 10, Creatinine 0.92, Est GFR ( [...] 161, MPV 7.2, Neut % (Auto) 43.8, Lymph% (Auto) 25.5, Randolph % (Auto) 9.0, Eos % (Auto) 20.7, Baso % (Auto) 1.0, Neut # (Auto) 1.6 L, Lymph # (Auto) 0.9 L,Randolph # (Auto) 0.3, Eos # (Auto) 0.8 [...] Malignant Hematology--added Revlimid 5mg qod following significant reductionof light chains in early April 2020. 05/07/2020: [...] week to review results as well as evaluationwith Dr. Hall for possible stem cell transplant. 06/04/2020: Tolerating chemotherapy well other than increasing neuropathy of hands and feet. Dose reduced Velcade by 25% next cycle. Added daily ferrous sulfate. --He was referred to diabetes management clinic and sees Dr. Ochoa with regularfollow-up by Dr. Rahman since he is off dialysis. Diabetes control improved. 07/02/2020: Last dose of Velcade today. Neuropathy is stable and pain is well controlled. He will have COVID-19 test on 07/11/2020 for planned admission for stem cell collection on 07/17/2020 then high-dose melphalan followed by peripheral blood stem cell transplant day 0 scheduled 07/23/2020. His next follow-up with ri will be in about 4 months after he is completed day 100 transplant follow-up. He may return sooner as needed. 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 Melphalan 100mg/m2 + ASCT Day . 11/26/2020: Followup of [facility] end of therapy bone marrow biopsy 10/18/2020--no minimal residual disease. Started Revlimid maintenance 5mg daily in early October2020. 02/27/2021: No new symptoms other than rash. Slow improvement of neuropathy--titrating off gabapentin with palliative medicine. Benadryl for rash. Continue Revlimid 5mg daily. He will be due for firstpost transplant vaccines soone--will check schedule with . 05/30/2021: Rash and neuropathy improved. Tolerating Revlimid well. Discussedcoronavirus booster and influenza vaccines. Post transplant vaccines due in 07/2021. No M-spike and normal kappa/lambda ratio. Next followup with ri in 3 months for exam and f/u [...] from 400mg/300mg/400mg to now 200/100/200 off over thepast 3 months--will continue to followup with palliative medicine as needed. (3) Iron deficiency anemia Prior leg cramps with low iron saturation. Ferritin inappropriately normal due to inflammation frommyeloma. Daily oral iron added due to symptomatic leg cramps and persistent anemia. Recheck iron studies were not ordered--december send with 3 month followup. No longer taking oral iron--mild normocytic anemia post transplant continues to improve. (4) History of hemodialysis Initiated inpatient hemodialysis 02/2020, then transitioned to outpatient hemodialysis 3 times weekly Thursday//Thursday schedule. Chemotherapy given Thursday/. I explained to patient andhis that with light chain nephropathy once we [...] - Adverse effect of glucocorticoids and synthetic analogues,subsequent encounter Patsy had an excellent response of light chains but was noted to have significant hyperglycemia 300-500 fasting blood sugars. He was referred to diabetes management clinic with addition of insulin therapy that has significantly improved control of his blood sugars. Patient also had remarked on some blurred vision that improved with control of blood sugars. Continue follow- up of blood sugars during admission for transplant in early July. 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 Resumed low dose metformin and titrating downinsulin--directed by his primary physician. (6) B12 deficiency [...] vitamin D2 therapy 50,000 units orally for low25 hydroxy vitamin D stores. He may take supplemental calcium once daily. (7) Encounter for chemotherapy management Started cycle 1 day 1 03/12/2020: Daratumumab 16 mg/kg IV weekly, bortezomib 1.3 mg/kg subcu twice weekly, dexamethasone 40 mg weekly. We added Revlimid 5 mg every other day of each 21-day cycle with cycle 2 due to excellent reductionof kappa light chains (recommended by Dr. Hall [...] for coordination of care (as documented) and [id number] counseling of patient and/or family. Dictated By: Brook Huddleston MD DD/ [id number] Signed By: <Electronically signed by MD Brook Huddleston> 05/31/21 [id number] [facility] Work Phone: [phone]) 189-929310-15-2021 Progress note Author Brook Huddleston [facility] May 31, 2021 5:42pmNote Date/TimeOct2020 2:50pmNorth [facility] at [address] [address] Hem/Onc Follow Up Note - OP Signed Patient: Patsy Mills MR#: [id number] : 1945 Acct:[id number] Age/Sex: 76 / M Type: REG RCR Copies to: MD Helen Jaramillo MD~ Subjective Date/Time of Service: Date of Service: 05/30/2021 Time of Service: 14:49 Chief Complaint: Patient is here for a 3 month follow up [facility] labs for review. Patient has questions about [...] for post transplant vaccines. Stable kappa/lambda ratio--no M- spike serum and urine testing. Quant immunoglobulins normal. I will f/u with myeloma labs in 3 months--CBC, CMP, SPEP, quant IGs, kappa/lambda light chains and beta2 microglobulin. He and his are in agreement with this plan. 11/26/2020: Patsy is here for followup after D86 bone marrow biopsy at [facility] on 10/18/2020. No evidence of MRD--0.5% plasma cells andno clonal plasma cells suggestive of residual myeloma. Tolerating maintenance Revlimid 5mg daily well. No bone pain and normal renal function-- hasreleased for annual nephrology followup. He is fully vaccinated for [id number] and I contacted Dr. Hall for coordination [...] up for palliative consultation (previously followed by Olamide Olivia). He has a followup bone marrow [...] completed all of his pretransplant evaluation at [facility] including cardiology visit 11 which showed ejection fraction 60%. I have contacted Dr. Hall who noted that today will be his last day of Velcade and we will hold his daratumumab. He was to have a COVID-19 teston 07/11/2020 for planned stem cell collection 07/17 and transplant on 07/23. I clarified with the staff at [facility] this this may be performed at [facility] and forwarded to them. His neuropathy in [...] He has now hemodialysis independent after daratumumab, dexamethasone,and Velcade with addition of Revlimid. Today he reports that he has had increased neuropathy symptoms in hisbilateral hands and feet with mild interference with activity (grade 2). We discussed a 25%dose reduction of Velcade on day 1, day [...] Dr. Hall regarding end of therapy and in1 month I will see him with follow-up myeloma studies. No other new concerns today. 05/07/2020: Patsy is here for 1 month follow-up. Outpatient hemodialysis was stopped after 04/24/2020due to excellent response. He was evaluated by Dr. Small at [facility] on 04/26/2020.Angel and his note that Dr. Hall felt that he was physiologically about 8 years younger than his chronologic age and would likely be transplant eligible if pretransplant work- updeems this feasible. He recommended continuing current daratumumab [...] no toxicities of chemotherapy. He sees Dr. Ochoa for follow-up tomorrow and maintains insulin with stabilization of hisblood sugars following with diabetes management clinic. I [...] has remarkably improved (>90% reduction past month). [place] light chains decreased from 12,000 to 42. [...] response. He received his first cycle of [place] chemotherapy 03/12/2020. --Patient tolerated initial daratumumab infusion reasonably well with brief infusion reaction (dizziness and mild wheezing) that was treated with diphenhydramine, steroids, albuterol, and Demerol forrigors. He completed remaining infusion in an outpatient bed on the inpatient hart Thursday and we ant icipate further weekly daratumumab infusions as an outpatient. [...] kappa light chains, and elevated M spike. Wediscussed in detail the pathophysiology of myeloma but she felt very anxious and overwhelmed and I r eassured her that we will readdress this at further follow-up visits. 2. Patient had a metastatic bone survey showing no areas of lytic disease or pathologic fractures. We discussed CRAB criteria for multiple myeloma diagnosisand that he meets criteria of R renal and Aanemia, but not elevated calcium or bone disease (C and B). She specifically asked is stage of multiple myeloma andwe noted that he still will require beta-2 glycoprotein (ISS) but is most consistentwith stage III. We are still awaiting his [...] could be managed byhis primary physician Dr. Ochoa and he could be referred for diabetes [...] marijuana and would discuss this with his lawn service manager whetherthis would interfere with dialysis. We will also follow closely for cytopenias and reviewed infectious precautions. He has a [facility] who plans to visit on Thursday and [...] exercise given his recentdialysis and initiation of chemotherapy.I did not specifically address his diet but he may address this with our [facility] nutrition team. He will also receivechemotherapy class with our nurses in the infusion center. PRELIMINARY HISTORY (from initial consult 03/08/2020): This is a 76-year-old male who was transferred from [place] emergency room by [facility] due to critical potassium 8.7 with elevated creatinine 11.2 and BUN 82 on 03/04/2020. We do not have any recent blood work for comparison but he hadnormal creatinine in 2011. He was urgently treated for his hyperkalemia and dialysis was arranged emergently by nephrology team. He has now stabilized on dialysisand had extensive work-up for etiology of his acute renal failure with severe anemia felt to be dueto anemia of renal insufficiency. Iron studies returned normal with ferritin 160, but B12 low at 84and folate low normal at 5.2. He is [...] day 0 autologous stem cell transplant 07/25/2020at [facility]. 11/26/2020: Follow-up bone marrow aspiration and biopsy 10/18/2020 for MRD evaluation shows hypocellular marrow with 0.5% plasma cells, no clonal population by flow cytometry but 0.03% kappa light chainskewing. Started Revlimid 5 mg daily for maintenance [...] starting dialysis, chemotherapy, and transplant for light chainnephropathy. 11/2020--returned to baseline weight pretransplant. GENITOURINARY: Negative [...] disturbance and headache. No focal neurologic deficits orhistory of stroke. Improvement of painful sensory neuropathy [...] pen (Lantus Solostar U-100 Insulin) 12 unit SUBCUTDAILY 04/27/20 [History Confirmed 05/30/21] insulin lispro 100 unit/mL subcutaneous pen (Humalog KwikPen (U-100) Insulin) 6 - 16 unit SUBCUT ASDIRECTED 04/27/20 [History Confirmed 05/30/21] hydralazine 50 mg [...] 33.0, U Random Total Protein <4.0, U Ssshm-9-Nhfpwykq (%) 3.1,U Random h-6-Erbrjdsc % 13.7, U Random b-Globulin % 26.4, U Random Gamma Glob % 23.7, U Random M-Anselmo (%) Not observed, Urine Random PEP Note , Urine Immunofixation 05/24/21 14:07: Serum Total Protein 6.4, Albumin (Send Out) 3.3, Globulin (PEP) 3.1, Albumin/Globulin (PEP) 1.1, Wanoq-6-Cnygpryhc 0.3, Mrfiu-8-Ensavdaak 0.9, Beta Globulins 0.9, Llis-0-Msthxksquieet5.8 H, Gamma Globulins 1.0, M-Anselmo Comment:, PEP Note , IgG 944, IgA 137, IgM 29, Serum Immunofixation Comment:, Free [place] LC, Quant 32.7 H, Free Lambda LC, Quant 21.3, Free [place]/Lambda Ratio1.54 05/24/21 14:07: PHA Creatinine Clear 78.43, Sodium 136, Potassium 4.1, Chloride 105, Carbon Ftnshtf00.6, BUN 10, Creatinine 0.92, Est GFR ( [...] 161, MPV 7.2, Neut % (Auto) 43.8, Lymph% (Auto) 25.5, Randolph % (Auto) 9.0, Eos % (Auto) 20.7, Baso % (Auto) 1.0, Neut # (Auto) 1.6 L, Lymph # (Auto) 0.9 L,Randolph # (Auto) 0.3, Eos # (Auto) 0.8 [...] Malignant Hematology--added Revlimid 5mg qod following significant reductionof light chains in early April 2020. 05/07/2020: As per HPI, Don and his [...] week to review results as well as evaluationwith Dr. Hall for possible stem cell transplant. 06/04/2020: Tolerating chemotherapy well other than increasing neuropathy of hands and feet. Dose reduced Velcade by 25% next cycle. Added daily ferrous sulfate. --He was referred to diabetes management clinic and sees Dr. Ochoa with regularfollow-up by Dr. Rahman since he [...] chain nephropathy. Melphalan 100mg/m2 + ASCT Day . 11/26/2020: Followup of [facility] end of therapy bone marrow biopsy 10/18/2020--no minimal residual disease. Started Revlimid maintenance 5mg daily in early October2020. 02/27/2021: No new symptoms other than rash. Slow improvement of neuropathy--titrating off gabapentin with palliative medicine. Benadryl for rash. Continue Revlimid 5mg daily. He will be due for firstpost transplant vaccines soone--will check schedule with . 05/30/2021: Rash and neuropathy improved. Tolerating Revlimid well. Discussedcoronavirus booster and influenza vaccines. Post transplant vaccines due in 07/2021. No M-spike and normal kappa/lambda ratio. Next followup with ri in 3 months for exam and f/u [...] from 400mg/300mg/400mg to now 200/100/200 off over thepast 3 months--will continue to followup with palliative medicine as needed. (3) Iron deficiency anemia Prior leg cramps with low iron saturation. Ferritin inappropriately normal due to inflammation frommyeloma. Daily oral iron added due to symptomatic leg cramps and persistent anemia. Recheck iron studies were not ordered--may send with 3 month followup. No longer taking oral iron--mild normocytic anemia post transplant continues to improve. (4) History of hemodialysis Initiated inpatient hemodialysis 02/2020, then transitioned to outpatient hemodialysis 3 times weekly Thursday//Thursday schedule. Chemotherapy given Thursday/. I explained to patient andhis that with light chain nephropathy once we [...] - Adverse effect of glucocorticoids and synthetic analogues,subsequent encounter Patsy had an excellent response of light chains but was noted to have significant hyperglycemia 300-500 fasting blood sugars. He was referred to diabetes management clinic with addition of insulin therapy that has significantly improved control of his blood sugars. Patient also had remarked on some blurred vision that improved with control of blood sugars. Continue follow- up of blood sugars during admission for transplant in early July. 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 Resumed low dose metformin and titrating downinsulin--directed by his primary physician. (6) B12 deficiency [...] vitamin D2 therapy 50,000 units orally for low25 hydroxy vitamin D stores. He may take supplemental calcium once daily. (7) Encounter for chemotherapy management Started cycle 1 day 1 03/12/2020: Daratumumab 16 mg/kg IV weekly, bortezomib 1.3 mg/kg subcu twice weekly, dexamethasone 40 mg weekly. We added Revlimid 5 mg every other day of each 21-day cycle with cycle 2 due to excellent reductionof kappa light chains (recommended by Dr. Hall [...] for coordination of care (as documented) and ehfl-tf-fckb counseling of patient and/or family. Dictated By: Brook Huddleston MD DD/ [id number] Signed By: <Electronically signed by MD Brook Huddleston> 05/31/21 [address] [facility] Work Phone: [phone]) 639-341807-14-2021 Progress note Author Brook Huddleston [facility] February 27, 2021 8:52pmNote Date/TimeJuly 2020 2:50pmNorth Central Baptist [place] [address] Hem/Onc Follow Up Note - OP Signed Patient: Patsy Mills MR#: [id number] : 1945 Acct:[id number] Age/Sex: 76 / M Type: REG RCR [...] for post transplant vaccines. Stable kappa/lambda ratio--no M- spike serum and urine testing. Quant immunoglobulins normal. I will f/u with myeloma labs in 3 months--CBC, CMP, SPEP, quant IGs, kappa/lambda light chains and beta2 microglobulin. He and his are in agreement with this plan. 11/26/2020: Patsy is here for followup after D86 bone marrow biopsy at [facility] on 10/18/2020. No evidence of MRD--0.5% plasma cells andno clonal plasma cells suggestive of residual myeloma. Tolerating maintenance Revlimid 5mg daily well. No bone pain and normal renal function-- hasreleased for annual nephrology followup. He is fully vaccinated for [id number] and I contacted Dr. Hall for coordination [...] week ago, he saw Dr. Hall for survivorshipvisit. We reviewed his post transplant course and prior infections have now resolved. Blood counts have recovered and renal function at prior baseline. He has persistent neuropathy ongabapentin 200mgam, 100mg noon, 200mg pm. I'm setting him [...] completed all of his pretransplant evaluation at [facility] including cardiology visit 11 9 which showed ejection fraction 60%. I have contacted Dr. Hall who noted that today will be his last day of Velcade and we will hold his daratumumab. He was to have a COVID-19 teston 07/11/2020 for planned stem cell collection 07/17 and transplant on 07/23. I clarified with the staff at [facility] this this may be performed at [facility] and forwarded to them. 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 His pain mainly in hips is about 3 out of 10 and controlled with Percocet. His next follow-up with me daiyusufsafia be in about 4 months when he [...] He has now hemodialysis independent after daratumumab, dexamethasone,and Velcade with addition of Revlimid. Today he reports that he has had increased neuropathy symptoms in hisbilateral hands and feet with mild interference with activity (grade 2). We discussed a 25%dose reduction of Velcade on day 1, day [...] Dr. Hall regarding end of therapy and in1 month I will see him with follow-up myeloma studies. No other new concerns today. 05/07/2020: Patsy is here for 1 month follow-up. Outpatient hemodialysis was stopped after 04/24/2020due to excellent response. He was evaluated by Dr. Small at [facility] on 04/26/2020.Angel and his note that Dr. Hall felt that he was physiologically about 8 years younger than his chronologic age and would likely be transplant eligible if pretransplant work- updeems this feasible. He recommended continuing current daratumumab [...] no toxicities of chemotherapy. He sees Dr. Ochoa for follow-up tomorrow and maintains insulin with stabilization of hisblood sugars following with diabetes management clinic. I [...] has remarkably improved (>90% reduction past month). [place] light chains decreased from 12,000 to 42. [...] response. He received his first cycle of [place] chemotherapy 03/12/2020. --Patient tolerated initial daratumumab infusion reasonably well with brief infusion reaction (dizziness and mild wheezing) that was treated with diphenhydramine, steroids, albuterol, and Demerol forrigors. He completed remaining infusion in an outpatient bed on the inpatient hart Thursday and we ant icipate further weekly daratumumab infusions as an outpatient. [...] kappa light chains, and elevated M spike. Wediscussed in detail the pathophysiology of myeloma but she felt very anxious and overwhelmed and I r eassured her that we will readdress this at further follow-up visits. 2. Patient had a metastatic bone survey showing no areas of lytic disease or pathologic fractures. We discussed CRAB criteria for multiple myeloma diagnosisand that he meets criteria of R renal and Aanemia, but not elevated calcium or bone disease (C and B). She specifically asked is stage of multiple myeloma andwe noted that he still will require beta-2 glycoprotein (ISS) but is most consistentwith stage III. We are still awaiting his [...] could be managed byhis primary physician Dr. Ochoa and he could be referred for diabetes [...] marijuana and would discuss this with his lawn service manager whetherthis would interfere with dialysis. We will also follow closely for cytopenias and reviewed infectious precautions. He has a [facility] who plans to visit on Thursday and [...] exercise given his recentdialysis and initiation of chemotherapy.I did not specifically address his diet but he may address this with our [facility] nutrition team. He will also receivechemotherapy class with our nurses in the infusion center. PRELIMINARY HISTORY (from initial consult 03/08/2020): This is a 76-year-old male who [facility] [place] [facility] 8.7 with elevated creatinine 11.2 and BUN 82 on 03/04/2020. We do not have any recent blood work for comparison but he hadnormal creatinine in 2012. He was urgently treated for his hyperkalemia and dialysis was arranged emergently by nephrology team. He has now stabilized on dialysisand had extensive work-up for etiology of his acute renal failure with severe anemia felt to be dueto anemia of renal insufficiency. Iron studies returned normal with ferritin 160, but B12 low at 84and folate low normal at 5.2. He is [...] to be coordinated with nursing staffdue to [facility]. - Summary of Therapies [...] day 0 autologous stem cell transplant 07/25/2020at [facility]. 11/26/2020: Follow-up bone marrow aspiration and biopsy 10/18/2020 for MRD evaluation shows hypocellular marrow with 0.5% plasma cells, no clonal population by flow cytometry but 0.03% kappa light chainskewing. Started Revlimid 5 mg daily for maintenance [...] starting dialysis, chemotherapy, and transplant for light chainnephropathy. 11/2020--returned to baseline weight pretransplant. GENITOURINARY: Negative [...] disturbance and headache. No focal neurologic deficits orhistory of stroke. Improvement of painful sensory neuropathy [...] Negative for environmental allergies and food allergies. [facility] - History Attestation statement: The [...] pen (Lantus Solostar U-100 Insulin) 12 unit SUBCUTDAILY 04/27/20 [History Confirmed 02/27/21] insulin lispro 100 unit/mL subcutaneous pen (Humalog KwikPen (U-100) Insulin) 6 - 16 unit SUBCUT ASDIRECTED 04/27/20 [History Confirmed 02/27/21] hydralazine 50 mg [...] 3.4, Globulin (PEP) 2.8, Albumin/Globulin (PEP) 1.2, Nvpxs-1-Numuyokqs 0.2, Ihwds-1-Hddqcipcb 0.9, Beta Globulins 0.9, Didt-5-Dyqtauocauthx9.3, Gamma Globulins 0.7, M-Anselmo Not observed, PEP Note , IgG 749, IgA 89, IgM 21, Serum Immunofixation , Free [place] LC, Quant 30.3 H, Free Lambda LC, Quant 16.7, Free [place]/Lambda Ratio 1.81 H 02/20/21 11:25: PHA Creatinine [...] Malignant Hematology--added Revlimid 5mg qod following significant reductionof light chains in early April 2020. 05/07/2020: [...] week to review results as well as evaluationwith Dr. Hall for possible stem cell transplant. 06/04/2020: Tolerating chemotherapy well other than increasing neuropathy of hands and feet. Dose reduced Velcade by 25% next cycle. Added daily ferrous sulfate. --He was referred to diabetes management clinic and sees Dr. Ochoa with regularfollow-up by Dr. Rahman since he [...] chain nephropathy. Melphalan 100mg/m2 + ASCT Day . 11/26/2020: Followup of [facility] end of therapy bone marrow biopsy 10/18/2020--no minimal residual disease. Started Revlimid maintenance 5mg daily in early October2020. 02/27/2021: No new symptoms other than rash. Slow improvement of neuropathy--titrating off gabapentin with palliative medicine. Benadryl for rash. Continue Revlimid 5mg daily. He will be due for firstpost transplant vaccines soone--will check schedule with . Next followup with me in 3 months for exam and f/u myeloma labs. Extended nephrology followup to annual. May return sooner if new issues arise. F/u skeletal survey 1 yr s/p transplant. This is a moderate complexity visit over 30 minutes for symptom and lab review, and coordination ofcare with tertiary malignant hematology, and ongoing counseling [...] saturation. Ferritin inappropriately normal due to inflammation frommyeloma. Daily oral iron added due to symptomatic leg cramps and persistent anemia. Recheck iron studies were not ordered--december send with 3 month followup. No longer taking oral iron--mild normocytic anemia post transplant continues to improve. (4) History of hemodialysis Initiated inpatient hemodialysis 02/2020, then transitioned to outpatient hemodialysis 3 times weekly Thursday//Thursday schedule. Chemotherapy given Thursday/. I explained to patient andhis that with light chain nephropathy once we [...] - Adverse effect of glucocorticoids and synthetic analogues,subsequent encounter Patsy had an excellent response of light chains but was noted to have significant hyperglycemia 300-500 fasting blood sugars. He was referred to diabetes management clinic with addition of insulin therapy that has significantly improved control of his blood sugars. Patient also had remarked on some blurred vision that improved with control of blood sugars. Continue follow- up of blood sugars during admission for transplant [...] vitamin D2 therapy 50,000 units orally for low25 hydroxy vitamin D stores. He may take [...] cycle with cycle 2 due to excellent reductionof kappa light chains (recommended by Dr. Hall [...] for coordination of care (as documented) and ifya-[id number] counseling of patient and/or family. Dictated By: Brook Huddleston MD DD/ 144 Signed By: <Electronically signed by MD Brook Huddleston> 02/27/212051 [facility] Work Phone: [phone]) 260-661007-14-2021 Progress note Author Brook Huddleston [facility] February 27, 2021 8:52pmNote Date/TimeJuly 2020 2:50pm[facility] [place] [id number] Hem/Onc Follow Up Note - OP Signed Patient: Patsy Mills MR#: [id number] : 1945 Acct:[id number] Age/Sex: 76 / M Type: REG RCR [...] for post transplant vaccines. Stable kappa/lambda ratio--no M- spike serum and urine testing. Quant immunoglobulins normal. I will f/u with myeloma labs in 3 months--CBC, CMP, SPEP, quant IGs, kappa/lambda light chains and beta2 microglobulin. He and his are in agreement with this plan. 11/26/2020: Patsy is here for followup after D86 bone marrow biopsy at [facility] on 10/18/2020. No evidence of MRD--0.5% plasma cells andno clonal plasma cells suggestive of residual myeloma. Tolerating maintenance Revlimid 5mg daily well. No bone pain and normal renal function-- hasreleased for annual nephrology followup. He is fully vaccinated for [id number] and I contacted Dr. Hall for coordination [...] week ago, he saw Dr. Hall for survivorshipvisit. We reviewed his post transplant course and prior infections have now resolved. Blood counts have recovered and renal function at prior baseline. He has persistent neuropathy ongabapentin 200mgam, 100mg noon, 200mg pm. I'm setting him [...] completed all of his pretransplant evaluation at [facility] including cardiology visit 11 9 which showed ejection fraction 60%. I have contacted Dr. Hall who noted that today will be his last day of Velcade and we will hold his daratumumab. He was to have a COVID-19 teston 07/11/2020 for planned stem cell collection 07/17 and transplant on 07/23. I clarified with the staff at [facility] this this may be performed at [facility] and forwarded to them. His neuropathy in [...] He has now hemodialysis independent after daratumumab, dexamethasone,and Velcade with addition of Revlimid. Today he reports that he has had increased neuropathy symptoms in hisbilateral hands and feet with mild interference with activity (grade 2). We discussed a 25%dose reduction of Velcade on day 1, day [...] Dr. Hall regarding end of therapy and in1 month I will see him with follow-up myeloma studies. No other new concerns today. 05/07/2020: Patsy is here for 1 month follow-up. Outpatient hemodialysis was stopped after 04/24/2020due to excellent response. He was evaluated by Dr. Small at [facility] on 04/26/2020.Angel and his note that Dr. Hall felt that he was physiologically about 8 years younger than his chronologic age and would likely be transplant eligible if pretransplant work- updeems this feasible. He recommended continuing current daratumumab [...] no toxicities of chemotherapy. He sees Dr. Ochoa for follow-up tomorrow and maintains insulin with stabilization of hisblood sugars following with diabetes management clinic. I [...] has remarkably improved (>90% reduction past month). [place] light chains decreased from 12,000 to 42. [...] response. He received his first cycle of [facility] chemotherapy 03/12/2020. --Patient tolerated initial daratumumab infusion reasonably well with brief infusion reaction (dizziness and mild wheezing) that was treated with diphenhydramine, steroids, albuterol, and Demerol forrigors. He completed remaining infusion in an outpatient bed on the inpatient hart Thursday and we ant icipate further weekly daratumumab infusions as an outpatient. [...] kappa light chains, and elevated M spike. Wediscussed in detail the pathophysiology of myeloma but she felt very anxious and overwhelmed and I r eassured her that we will readdress this at further follow-up visits. 2. Patient had a metastatic bone survey showing no areas of lytic disease or pathologic fractures. We discussed CRAB criteria for multiple myeloma diagnosisand that he meets criteria of R renal and Aanemia, but not elevated calcium or bone disease (C and B). She specifically asked is stage of multiple myeloma andwe noted that he still will require beta-2 glycoprotein (ISS) but is most consistentwith stage III. We are still awaiting his [...] could be managed byhis primary physician Dr. Ochoa and he could be referred for diabetes [...] marijuana and would discuss this with his lawn service manager whetherthis would interfere with dialysis. We will also follow closely for cytopenias and reviewed infectious precautions. [facility] and [...] exercise given his recentdialysis and initiation of chemotherapy.I did not specifically address his diet but he may address this with our [facility] nutrition team. He will also receivechemotherapy class with our nurses in the infusion center. PRELIMINARY HISTORY (from initial consult 03/08/2020): This is a 76-year-old male who was transferred from [place] emergency room by [facility] due to critical potassium 8.7 with elevated creatinine 11.2 and BUN 82 on 03/04/2020. We do not have any recent blood work for comparison but he hadnormal creatinine in 2012. He was urgently treated for his hyperkalemia and dialysis was arranged emergently by nephrology team. He has now stabilized on dialysisand had extensive work-up for etiology of his acute renal failure with severe anemia felt to be dueto anemia of renal insufficiency. Iron studies returned normal with ferritin 160, but B12 low at 84and folate low normal at 5.2. He is [...] day 0 autologous stem cell transplant 07/25/2020at [facility]. 11/26/2020: Follow-up bone marrow aspiration and biopsy 10/18/2020 for MRD evaluation shows hypocellular marrow with 0.5% plasma cells, no clonal population by flow cytometry but 0.03% kappa light chainskewing. Started Revlimid 5 mg daily for maintenance [...] starting dialysis, chemotherapy, and transplant for light chainnephropathy. 11/2020--returned to baseline weight pretransplant. GENITOURINARY: Negative [...] disturbance and headache. No focal neurologic deficits orhistory of stroke. Improvement of painful sensory neuropathy [...] pen (Lantus Solostar U-100 Insulin) 12 unit SUBCUTDAILY 04/27/20 [History Confirmed 02/27/21] insulin lispro 100 unit/mL subcutaneous pen (Humalog KwikPen (U-100) Insulin) 6 - 16 unit SUBCUT ASDIRECTED 04/27/20 [History Confirmed 02/27/21] hydralazine 50 mg [...] 3.4, Globulin (PEP) 2.8, Albumin/Globulin (PEP) 1.2, Kmtcm-5-Vprosxvuy 0.2, Bwmvd-4-Ffcwcvwzn 0.9, Beta Globulins 0.9, Jcft-9-Pqssyssmihvwq5.3, Gamma Globulins 0.7, M-Anselmo Not observed, PEP Note , IgG 749, IgA 89, IgM 21, Serum Immunofixation , Free [place] LC, Quant 30.3 H, Free Lambda LC, Quant 16.7, Free [place]/Lambda Ratio 1.81 H 02/20/21 11:25: PHA Creatinine [...] Malignant Hematology--added Revlimid 5mg qod following significant reductionof light chains in early April 2020. 05/07/2020: [...] week to review results as well as evaluationwith Dr. Hall for possible stem cell transplant. 06/04/2020: Tolerating chemotherapy well other than increasing neuropathy of hands and feet. Dose reduced Velcade by 25% next cycle. Added daily ferrous sulfate. --He was referred to diabetes management clinic and sees Dr. Ochoa with regularfollow-up by Dr. Rahman since he [...] chain nephropathy. Melphalan 100mg/m2 + ASCT Day . 11/26/2020: Followup of [facility] end of therapy bone marrow biopsy 10/18/2020--no minimal residual disease. Started Revlimid maintenance 5mg daily in early October2020. 02/27/2021: No new symptoms other than rash. Slow improvement of neuropathy--titrating off gabapentin with palliative medicine. Benadryl for rash. Continue Revlimid 5mg daily. He will be due for firstpost transplant vaccines soone--will check schedule with . Next followup with me in 3 months for exam and f/u myeloma labs. Extended nephrology followup to annual. May return sooner if new issues arise. F/u skeletal survey 1 yr s/p transplant. This is a moderate complexity visit over 30 minutes for symptom and lab review, and coordination ofcare with tertiary malignant hematology, and ongoing counseling [...] saturation. Ferritin inappropriately normal due to inflammation frommyeloma. Daily oral iron added due to symptomatic leg cramps and persistent anemia. Recheck iron studies were not ordered--may send with 3 month followup. No longer taking oral iron--mild normocytic anemia post transplant continues to improve. (4) History of hemodialysis Initiated inpatient hemodialysis 02/2020, then transitioned to outpatient hemodialysis 3 times weekly Thursday//Thursday schedule. Chemotherapy given Thursday/. I explained to patient andhis that with light chain nephropathy once we [...] - Adverse effect of glucocorticoids and synthetic analogues,subsequent encounter Patsy had an excellent response of light chains but was noted to have significant hyperglycemia 300-500 fasting blood sugars. He was referred to diabetes management clinic with addition of insulin therapy that has significantly improved control of his blood sugars. Patient also had remarked on some blurred vision that improved with control of blood sugars. Continue follow- up of blood sugars during admission for transplant [...] vitamin D2 therapy 50,000 units orally for low25 hydroxy vitamin D stores. He may take [...] cycle with cycle 2 due to excellent reductionof kappa light chains (recommended by Dr. Hall [...] for coordination of care (as documented) and [id number] counseling of patient and/or family. Dictated By: Brook Huddleston MD DD/ 48 Signed By: <Electronically signed by MD Brook Huddleston> 02/27/212051 [facility] Work Phone: 1(474) 811-134004-12-2021 Progress note Author Brook Huddleston [facility] November 26, 2020 6:26pmNote Date/TimeApril 2020 11:21[facility] [place] [address] Hem/Onc Follow Up Note - OP Signed Patient: Patsy Mills MR#: [id number] : 1945 Acct:[id number] Age/Sex: 75 / M Type: REG RCR Copies to: MD Helen Jaramillo MD~ Subjective Date/Time of Service: Date of Service: 11/26/2020 Time of Service: 11:20 Chief Complaint: Patient is here today for 1 month follow up visit for 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 He had bone biopsy and labs done at in [place].No new concerns HPI: 11/26/2020: Patsy is here for followup after D86 bone marrow biopsy at [facility] on 10/18/2020. No evidence of MRD--0.5% plasma cells andno clonal plasma cells suggestive of residual myeloma. Tolerating maintenance Revlimid 5mg daily well. No bone pain and normal renal function-- hasreleased for annual nephrology followup. He is fully vaccinated for [id number] and I contacted Dr. Hall for coordination [...] up for palliative consultation (previously followed by Olamide Olivia). He has a followup bone marrow [...] completed all of his pretransplant evaluation at [facility] including cardiology visit 11 9 which showed ejection fraction 60%. I have contacted Dr. Hall who noted that today will be his last day of Velcade and we will hold his daratumumab. He was to have a COVID-19 test on 07/11/2020 for planned stem cell collection 07/17 and transplant on 07/23. I clarified with the staff at [facility] this this may be performed at [facility] and forwarded to them. His neuropathy in [...] closer to home. His most recent labs revealimproving hemoglobin (11.5), stable renal function (creatinine 1.35), normal calcium, and appropriat eresponse of kappa light chain to now normal 18 with K/L ratio 2.02. 06/04/2020: Met with Dr. Hall on 05/24/2020 to discuss planning for high-dose chemotherapy peripheral blood stem cell transplant. He has now hemodialysis independent after daratumumab, dexamethasone,and Velcade with addition of Revlimid. Today he reports that he has had increased neuropathy symptoms in hisbilateral hands and feet with mild interference with activity (grade 2). We discussed a 25%dose reduction of Velcade on day 1, day [...] Dr. Hall regarding end of therapy and in1 month I will see him with follow-up myeloma studies. No other new concerns today. 05/07/2020: Patsy is here for 1 month follow-up. Outpatient hemodialysis was stopped after 04/24/2020due to excellent response. He was evaluated by Dr. Small at [facility] on 04/26/2020.Angel and his note that Dr. Hall felt that he was physiologically about 8 years younger than his chronologic age and would likely be transplant eligible if pretransplant work- updeems this feasible. He recommended continuing current daratumumab [...] no toxicities of chemotherapy. He sees Dr. Ochoa for follow-up tomorrow and maintains insulin with stabilization of hisblood sugars following with diabetes management clinic. I [...] has remarkably improved (>90% reduction past month). [place] light chains decreased from 12,000 to 42. [...] response. He received his first cycle of [place] chemotherapy 03/12/2020. --Patient tolerated initial daratumumab infusion reasonably well with brief infusion reaction (dizziness and mild wheezing) that was treated with diphenhydramine, steroids, albuterol, and Demerol forrigors. He completed remaining infusion in an outpatient bed on the inpatient hart Thursday and we ant icipate further weekly daratumumab infusions as an outpatient. [...] kappa light chains, and elevated M spike. Wediscussed in detail the pathophysiology of myeloma but she felt very anxious and overwhelmed and I r eassured her that we will readdress this at further follow-up visits. 2. Patient had a metastatic bone survey showing no areas of lytic disease or pathologic fractures. We discussed CRAB criteria for multiple myeloma diagnosisand that he meets criteria of R renal and Aanemia, but not elevated calcium or bone disease (C and B). She specifically asked is stage of multiple myeloma andwe noted that he still will require beta-2 glycoprotein (ISS) but is most consistentwith stage III. We are still awaiting his [...] could be managed byhis primary physician Dr. Ochoa and he could be referred for diabetes [...] marijuana and would discuss this with his lawn service manager whetherthis would interfere with dialysis. We will also follow closely for cytopenias and reviewed infectious precautions. [facility] on Thursday and [...] exercise given his recentdialysis and initiation of chemotherapy.I did not specifically address his diet but he may address this with our [facility] nutrition team. He will also receivechemotherapy class with our nurses in the infusion center. PRELIMINARY HISTORY (from initial consult 03/08/2020): This is a 75-year-old male who was transferred from [place] emergency room by [facility] due to critical potassium 8.7 with elevated creatinine 11.2 and BUN 82 on 03/04/2020. We do not have any recent blood work for comparison but he hadnormal creatinine in 2011. He was urgently treated for his hyperkalemia and dialysis was arranged emergently by nephrology team. He has now stabilized on dialysisand had extensive work-up for etiology of his acute renal failure with severe anemia felt to be dueto anemia of renal insufficiency. Iron studies returned normal with ferritin 160, but B12 low at 84and folate low normal at 5.2. He is [...] to be coordinated with nursing staffdue to [facility] visitor restriction policy. - Summary of Therapies [...] day 0 autologous stem cell transplant 07/25/2020at [facility]. 11/26/2020: Follow-up bone marrow aspiration and biopsy 10/18/2020 for MRD evaluation shows hypocellular marrow with 0.5% plasma cells, no clonal population by flow cytometry but 0.03% kappa light chainskewing. Started Revlimid 5 mg daily for maintenance [...] starting dialysis, chemotherapy, and transplant for light chainnephropathy. Now 11/2020--returned to baseline weight pretransplant. GENITOURINARY: Negative for dysuria and hematuria. Patient now with improved urinary output, diagnosed in February 2020 with renal failure requiring dialysis--off dialysis 04/24/2020. Prior nephrolithiasispreviously followed by Dr. Seals. ENDOCRINE: Negative for cold intolerance and heat intolerance. Improvement of prior hyperglycemia with home blood sugars in the 100-200s on supplemental insulin glargine. CENTRAL NERVOUS SYSTEM: Negative for gait disturbance and headache. No focal neurologic deficits orhistory of stroke. Positive for painful sensory neuropathy [...] Negative for environmental allergies and food allergies. [facility] - History Attestation statement: The [...] 10/08/20 10:02 10/08/20 10:02 Outside Labs: 10/18/2020 ([facility]): WBC 6400, Hg 11.8, Hct 35.4, Platelets 177,000; MCV 103, ANC 4810 Na 136, K 4.4, BUN 18, Creat 0.89, Glu 190, Ca 9.8, Alb 4.3 TB 0.4, AST 23, ALT 27, AP 90 - Impressions No new imaging for review. - Other Results Results/Comments: 10/18/2020 bone marrow aspirate and biopsy without MRD at [facility]. Assessment and Plan - [...] week to review results as well as evaluationwith Dr. Hall for possible stem cell transplant. 06/04/2020: Tolerating chemotherapy well other than increasing neuropathy of hands and feet. I willdose reduce Velcade by 25% next cycle. Likely hold therapy after mid Jun for planned stem cell harvest and transplant planning. I will contact Dr. Hall for planned timing. F/u with me in one month. Add dailyferrous sulfate. --He was referred to diabetes management clinic and sees Dr. Ochoa with regularfollow-up by Dr. Josiah since he [...] chain nephropathy. Melphalan 100mg/m2 + ASCT Day . 11/26/2020: Followup of [facility] end of therapy bone marrow biopsy [...] tertiary malignant hematology, and ongoing counseling treatment courseand surveillance with patient and his . (2) Chemotherapy-induced peripheral neuropathy 25% dose reduction Velcade prior to stem cell transplant due to reports of increased pain from neuropathy in fingers and feet. Worsening symptoms after transplant, referred back to palliative medicine for further management. Gabapentin now titrated to 400mg/300mg/400mg each day--will continue to fol lowupwith palliative medicine. (3) Iron deficiency anemia Prior leg cramps with low iron saturation. Ferritin inappropriately normal due to inflammation frommyeloma. Daily oral iron added due to symptomatic leg cramps and persistent anemia. Recheck iron studies were not ordered--may send with 3 month followup. No longer taking oral iron--mild macrocytic anemia post transplant. (4) History of hemodialysis Initiated inpatient hemodialysis 02/2020, then transitioned to outpatient hemodialysis 3 times weekly Thursday//Thursday schedule. Chemotherapy given Thursday/. I explained to patient andhis that with light chain nephropathy once we [...] Continued f/u withnephrology now annual post transplant dueto normal renal function. (5) Steroid-induced diabetes mellitus Qualifiers: Encounter type: subsequent encounter Qualified Code(s): E09.9 - Drug or chemical induced diabetes mellitus without complications; T38.0X5D - Adverse effect of glucocorticoids and synthetic analogues,subsequent encounter Patsy had an excellent response of light chains but was noted to have significant hyperglycemia 300-500 fasting blood sugars. He was referred to diabetes management clinic with addition of insulin therapy that has significantly improved control of his blood sugars. Patient also had remarked on some blurred vision that improved with control of blood sugars. Continue follow- up of blood sugars during admission for transplant [...] vitamin D2 therapy 50,000 units orally for low25 hydroxy vitamin D stores. He may take supplemental calcium once daily. (7) Encounter for chemotherapy management Started cycle 1 day 1 03/12/2020: Daratumumab 16 mg/kg IV weekly, bortezomib 1.3 mg/kg subcu twice weekly, dexamethasone 40 mg weekly. We added Revlimid 5 mg every other day of each 21-day cycle with cycle 2 due to excellent reductionof kappa light chains (recommended by Dr. Hall [...] for coordination of care (as documented) and rroh-hb-[id number] counseling of patient and/or family. Dictated By: Brook Huddleston MD DD/ 1120 Signed By: <Electronically signed by MD Brook Huddleston> 11/26/20 18[facility] Work Phone: 1(476) 536-572804-12-2021 Progress note Author Brook Huddleston [facility] November 26, 2020 6:26pmNote Date/TimeApr2020 11:21[facility] [place] [address] Hem/Onc Follow Up Note - OP Signed Patient: Patsy Mills MR#: [id number] : 1945 Acct:[id number] Age/Sex: 75 / M Type: REG RCR Copies to: MD Helen Jaramillo MD~ Subjective Date/Time of Service: Date of Service: 11/26/2020 Time of Service: 11:20 Chief Complaint: Patient is here today for 1 month follow up visit for 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 He had bone biopsy and labs done at in [place].No new concerns HPI: 11/26/2020: Patsy is here for followup after D86 bone marrow biopsy at [facility] on 10/18/2020. No evidence of MRD--0.5% plasma cells andno clonal plasma cells suggestive of residual myeloma. Tolerating maintenance Revlimid 5mg daily well. No bone pain and normal renal function-- hasreleased for annual nephrology followup. He is fully vaccinated for [id number] and I contacted Dr. Hall for coordination [...] up for palliative consultation (previously followed by Olamide Olivia). He has a followup bone marrow [...] completed all of his pretransplant evaluation at [facility] including cardiology visit 11 9 which showed ejection fraction 60%. I have contacted Dr. Hall who noted that today will be his last day of Velcade and we will hold his daratumumab. He was to have a COVID-19 test on 07/11/2020 for planned stem cell collection 07/17 and transplant on 07/23. I clarified with the staff at [facility] this this may be performed at [facility] and forwarded to them. 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 His pain mainly in hips is about 3 out of 10 and controlled with Percocet. His next follow-up with me chelalewkeyshawn be in about 4 months when he is post transplant although I am happy to see him sooner if new issues arise in his post transplant course that need to be managed closer to home. His most recent labs revealimproving hemoglobin (11.5), stable renal function (creatinine 1.35), normal calcium, and appropriat eresponse of kappa light chain to now normal 18 with K/L ratio 2.02. 06/04/2020: Met with Dr. Hall on 05/24/2020 to discuss planning for high-dose chemotherapy peripheral blood stem cell transplant. He has now hemodialysis independent after daratumumab, dexamethasone,and Velcade with addition of Revlimid. Today he reports that he has had increased neuropathy symptoms in hisbilateral hands and feet with mild interference with activity (grade 2). We discussed a 25%dose reduction of Velcade on day 1, day [...] Dr. Hall regarding end of therapy and in1 month I will see him with follow-up myeloma studies. No other new concerns today. 05/07/2020: Patsy is here for 1 month follow-up. Outpatient hemodialysis was stopped after 04/24/2020due to excellent response. He was evaluated by Dr. Small at [facility] on 04/26/2020.Angel and his note that Dr. Hall felt that he was physiologically about 8 years younger than his chronologic age and would likely be transplant eligible if pretransplant work- updeems this feasible. He recommended continuing current daratumumab [...] no toxicities of chemotherapy. He sees Dr. Ochoa for follow-up tomorrow and maintains insulin with stabilization of hisblood sugars following with diabetes management clinic. I [...] has remarkably improved (>90% reduction past month). [place] light chains decreased from 12,000 to 42. [...] response. He received his first cycle of combi nation chemotherapy 03/12/2020. --Patient tolerated initial daratumumab infusion reasonably well with brief infusion reaction (dizziness and mild wheezing) that was treated with diphenhydramine, steroids, albuterol, and Demerol forrigors. He completed remaining infusion in an outpatient bed on the inpatient hart Thursday and we ant icipate further weekly daratumumab infusions as an outpatient. [...] kappa light chains, and elevated M spike. Wediscussed in detail the pathophysiology of myeloma but she felt very anxious and overwhelmed and I r eassured her that we will readdress this at further follow-up visits. 2. Patient had a metastatic bone survey showing no areas of lytic disease or pathologic fractures. We discussed CRAB criteria for multiple myeloma diagnosisand that he meets criteria of R renal and Aanemia, but not elevated calcium or bone disease (C and B). She specifically asked is stage of multiple myeloma andwe noted that he still will require beta-2 glycoprotein (ISS) but is most consistentwith stage III. We are still awaiting his [...] could be managed byhis primary physician Dr. Ochoa and he could be referred for diabetes [...] marijuana and would discuss this with his lawn service manager whetherthis would interfere with dialysis. We will also follow closely for cytopenias and reviewed infectious precautions. He has a [facility] who plans to visit on Thursday and [...] exercise given his recentdialysis and initiation of chemotherapy.I did not specifically address his diet but he may address this with our [facility] nutrition team. He will also receivechemotherapy class with our nurses in the infusion center. PRELIMINARY HISTORY (from initial consult 03/08/2020): This is a 75-year-old male who was transferred from [place] emergency room by [facility] due to critical potassium 8.7 with elevated creatinine 11.2 and BUN 82 on 03/04/2020. We do not have any recent blood work for comparison but he hadnormal creatinine in 2012. He was urgently treated for his hyperkalemia and dialysis was arranged emergently by nephrology team. He has now stabilized on dialysisand had extensive work-up for etiology of his acute renal failure with severe anemia felt to be dueto anemia of renal insufficiency. Iron studies returned normal with ferritin 160, but B12 low at 84and folate low normal at 5.2. He is [...] day 0 autologous stem cell transplant 07/25/2020at [facility]. 11/26/2020: Follow-up bone marrow aspiration and biopsy 10/18/2020 for MRD evaluation shows hypocellular marrow with 0.5% plasma cells, no clonal population by flow cytometry but 0.03% kappa light chainskewing. Started Revlimid 5 mg daily for maintenance [...] starting dialysis, chemotherapy, and transplant for light chainnephropathy. Now 11/2020--returned to baseline weight pretransplant. GENITOURINARY: Negative for dysuria and hematuria. Patient now with improved urinary output, diagnosed in February 2020 with renal failure requiring dialysis--off dialysis 04/24/2020. Prior nephrolithiasispreviously followed by Dr. Seals. ENDOCRINE: Negative for cold intolerance and heat intolerance. Improvement of prior hyperglycemia with home blood sugars in the 100-200s on supplemental insulin glargine. CENTRAL NERVOUS SYSTEM: Negative for gait disturbance and headache. No focal neurologic deficits orhistory of stroke. Positive for painful sensory neuropathy [...] Negative for environmental allergies and food allergies. [facility] - History Attestation statement: The [...] 10/08/20 10:02 10/08/20 10:02 Outside Labs: 10/18/2020 ([facility]): WBC 6400, Hg 11.8, Hct 35.4, Platelets 177,000; MCV 103, ANC 4810 Na 136, K 4.4, BUN 18, Creat 0.89, Glu 190, Ca 9.8, Alb 4.3 TB 0.4, AST 23, ALT 27, AP 90 - Impressions No new imaging for review. - Other Results Results/Comments: 10/18/2020 bone marrow aspirate and biopsy without MRD at [facility]. Assessment and Plan - [...] week to review results as well as evaluationwith Dr. Hall for possible stem cell transplant. 06/04/2020: Tolerating chemotherapy well other than increasing neuropathy of hands and feet. I willdose reduce Velcade by 25% next cycle. Likely hold therapy after mid Nov for planned stem cell harvest and transplant planning. I will contact Dr. Hall for planned timing. F/u with me in one month. Add dailyferrous sulfate. --He was referred to diabetes management clinic and sees Dr. Ochoa with regularfollow-up by Dr. Rahman since he [...] chain nephropathy. Melphalan 100mg/m2 + ASCT Day . 11/26/2020: Followup of [facility] end of therapy bone marrow biopsy [...] tertiary malignant hematology, and ongoing counseling treatment courseand surveillance with patient and his . (2) Chemotherapy-induced peripheral neuropathy 25% dose reduction Velcade prior to stem cell transplant due to reports of increased pain from neuropathy in fingers and feet. Worsening symptoms after transplant, referred back to palliative medicine for further management. Gabapentin now titrated to 400mg/300mg/400mg each day--will continue to fol lowupwith palliative medicine. (3) Iron deficiency anemia Prior leg cramps with low iron saturation. Ferritin inappropriately normal due to inflammation frommyeloma. Daily oral iron added due to symptomatic leg cramps and persistent anemia. Recheck iron studies were not ordered--may send with 3 month followup. No longer taking oral iron--mild macrocytic anemia post transplant. (4) History of hemodialysis Initiated inpatient hemodialysis 02/2020, then transitioned to outpatient hemodialysis 3 times weekly Thursday//Thursday schedule. Chemotherapy given Thursday/. I explained to patient andhis that with light chain nephropathy once we [...] Continued f/u withnephrology now annual post transplant dueto normal renal function. (5) Steroid-induced diabetes mellitus Qualifiers: Encounter type: subsequent encounter Qualified Code(s): E09.9 - Drug or chemical induced diabetes mellitus without complications; T38.0X5D - Adverse effect of glucocorticoids and synthetic analogues,subsequent encounter Patsy had an excellent response of light chains but was noted to have significant hyperglycemia 300-500 fasting blood sugars. He was referred to diabetes management clinic with addition of insulin therapy that has significantly improved control of his blood sugars. Patient also had remarked on some blurred vision that improved with control of blood sugars. Continue follow- up of blood sugars during admission for transplant [...] vitamin D2 therapy 50,000 units orally for low25 hydroxy vitamin D stores. He may take supplemental calcium once daily. (7) Encounter for chemotherapy management Started cycle 1 day 1 03/12/2020: Daratumumab 16 mg/kg IV weekly, bortezomib 1.3 mg/kg subcu twice weekly, dexamethasone 40 mg weekly. We added Revlimid 5 mg every other day of each 21-day cycle with cycle 2 due to excellent reductionof kappa light chains (recommended by Dr. Hall [...] for coordination of care (as documented) and [id number] counseling of patient and/or family. Dictated By: Brook Huddleston MD DD/ 1120 Signed By: <Electronically signed by MD Brook Huddleston> 11/26/20 [address] [facility] Work Phone: 1(466) 235-585203-02-2021 Progress note Author Brook Huddleston [facility] October 15, 2020 10:42pmNote Date/TimeMar2020 10:26[facility] [place] [address] Hem/Onc Follow Up Note - OP Signed Patient: Patsy Mills MR#: [id number] : 1945 Acct:[id number] Age/Sex: 75 / M Type: REG RCR Copies to: MD Siva Jaramillo MD Richard R Keller, MD~ Subjective Date/Time of Service: Date of Service: 10/15/2020 Time of Service: 10:25 Chief Complaint: Patient is here today for 4 month follow up vsiit for light chanin neuropathy due to multiple myeloma. He has labs to review. He he had recent stem cell transplant 07/25/2020. He hasneuropathy that has been bothering him HPI: 10/15/2020: [...] up for palliative consultation (previously followed by Olamide Olivia). He has a followup bone marrow [...] completed all of his pretransplant evaluation at [facility] including cardiology visit 11 which showed ejection fraction 60%. I have contacted Dr. Hall who noted that today will be his last day of Velcade and we will hold his daratumumab. He was to have a COVID-19 teston 07/11/2020 for planned stem cell collection 07/17 and transplant on 07/23. I clarified with the staff at [facility] this this may be performed at [facility] and forwarded to them. His neuropathy in [...] He has now hemodialysis independent after daratumumab, dexamethasone,and Velcade with addition of Revlimid. Today he reports that he has had increased neuropathy symptoms in hisbilateral hands and feet with mild interference with activity (grade 2). We discussed a 25%dose reduction of Velcade on day 1, day [...] Dr. Hall regarding end of therapy and in1 month I will see him with follow-up myeloma studies. No other new concerns today. 05/07/2020: Patsy is here for 1 month follow-up. Outpatient hemodialysis was stopped after 04/24/2020due to excellent response. He was evaluated by Dr. Quique Hall at [facility] on 04/26/2020. Angel and his note that Dr. Hall felt that he was physiologically about 8 years younger than his chronologic age and would likely be transplant eligible if pretransplant work-updeems this feasible. He recommended continuing current daratumumab and Velcade with low- dose Revlimid. He will reevaluate patient in 1 [...] no toxicities of chemotherapy. He sees Dr. Ochoa for follow-up tomorrow and maintains insulin with [...] has remarkably improved (>90% reduction past month). [place] light chains decreased from 12,000 to 42. Only concernis significant hyperglycemia with dexamethasone. I advised adding NPH insulin 30 Units on weekly Dexamethasone and he is scheduled to see his [...] the following week to review plan and determinewhether plan forHDC/stem cell transplant. 03/14/2020: Patient presents with his today after initiating both outpatienthemodialysis on Thursday//Saturdays and initial cycle of daratumumab, bortezomib, dexamethasone with potential addition of Revlimid after 1 month if less than optimal response. He received his first cycle of combi nation chemotherapy 03/12/2020. --Patient tolerated initial daratumumab infusion reasonably well with brief infusion reaction (dizziness and mild wheezing) that was treated with diphenhydramine, steroids, albuterol, and Demerol forrigors. He completed remaining infusion in an outpatient bed on the inpatient hart Thursday and we ant icipate further weekly daratumumab infusions as an outpatient. [...] kappa light chains, and elevated M spike. Wediscussed in detail the pathophysiology of myeloma but she felt very anxious and overwhelmed and I r eassured her that we will readdress this at further follow-up visits. 2. Patient had a metastatic bone survey showing no areas of lytic disease or pathologic fractures. We discussed CRAB criteria for multiple myeloma diagnosisand that he meets criteria of R renal and Aanemia, but not elevated calcium or bone disease (C and B). She specifically asked is stage of multiple myeloma andwe noted that he still will require beta-2 glycoprotein (ISS) but is most consistentwith stage III. We are still awaiting his [...] could be managed byhis primary physician Dr. Ochoa and he could be referred for diabetes [...] marijuana and would discuss this with his lawn service manager whetherthis would interfere with dialysis. We will also follow closely for cytopenias and reviewed infectious precautions. He has a [place] who plans to visit on Thursday and [...] exercise given his recentdialysis and initiation of chemotherapy.I did not specifically address his diet but he may address this with our [facility] nutrition team. He will also receivechemotherapy class with our nurses in the infusion center. PRELIMINARY HISTORY (from initial consult 03/08/2020): This is a 75-year-old male who was transferred from [place] emergency room by [facility] due to critical potassium 8.7 with elevated creatinine 11.2 and BUN 82 on 03/04/2020. We do not have any recent blood work for comparison but he hadnormal creatinine in 2012. He was urgently treated for his hyperkalemia and dialysis was arranged emergently by nephrology team. He has now stabilized on dialysisand had extensive work-up for etiology of his acute renal failure with severe anemia felt to be dueto anemia of renal insufficiency. Iron studies returned normal with ferritin 160, but B12 low at 84and folate low normal at 5.2. He is [...] to be coordinated with nursing staffdue to [facility]-19 visitor restriction policy. - Summary of Therapies [...] day 0 autologous stem cell transplant 07/25/2020at [facility]. ROS Details: All systems [...] disturbance and headache. No focal neurologic deficits orhistory of stroke. Positive for painful sensory neuropathy in legs, worse after transplant. PSYCHIATRIC: Negative for anxiety or depression. DERMATOLOGICAL: Negative for pruritus and rash. Negative for suspicious skin lesions. MUSCULOSKELETAL: Positive for back pain and and thigh pain for the past few weeks. Positive for legcramps. Added ferrous sulfate once daily for iron [...] 48.3, U Random Total Protein 4.7, U Nbmey-3-Qjmcunab (%) 7.2, U Random m-2-Ofbwhvyz % 11.5, U Random b-Globulin % 12.0, U Random Gamma Glob % 21.1, U Random M-Anselmo (%) Not observed, Urine Random PEP Note , Urine Immunofixation 10/08/20 10:02: Serum Total Protein 5.9 L, Albumin (Send Out) 3.4, Globulin (PEP) 2.5, Albumin/Globulin (PEP) 1.4, Sfdyd-5-Wuvsnmwwh 0.2, Tnkxq-6-Ezsoginaq 0.9, Beta Globulins 0.9, Gamma Globulins 0.5, M-Anselmo Not observed, PEP Note , IgG 525 L, IgA 56 L, IgM 16, Serum Immunofixation , Free [place] LC, Quant 8.7, Free Lambda LC, Quant 3.9 L, Free [place]/Lambda Ratio 2.23 H 10/08/20 10:02: PHA Creatinine [...] % (Auto) 79.2, Lymph % (Auto) 11.3, Randolph % (Auto) 6.7, Eos % (Auto) 2.5, Baso % (Auto) 0.3, Neut # (Auto) 4.0, Lymph # (Auto) 0.6 L, Randolph # (Auto) 0.3, Eos # (Auto) 0.1, [...] week to review results as well as evaluationwith Dr. Hall for possible stem cell transplant. 06/04/2020: Tolerating chemotherapy well other than increasing neuropathy of hands and feet. I willdose reduce Velcade by 25% next cycle. Likely hold therapy after mid Nov for planned stem cell harvest and transplant planning. I will contact Dr. Hall for planned timing. F/u with me in one month. Add dailyferrous sulfate. --He was referred to diabetes management clinic and sees Dr. Ochoa with regularfollow-up by Dr. Rahman since he [...] saturation. Ferritin inappropriately normal due to inflammation frommyeloma. Daily oral iron added due to symptomatic leg cramps and persistent anemia. Recheck iron studies at 6 week f/u visit. (4) History of hemodialysis Initiated inpatient hemodialysis 02/2020, then transitioned to outpatient hemodialysis 3 times weekly Thursday//Thursday schedule. Chemotherapy given Thursday/. I explained to patient andhis that with light chain nephropathy once we [...] - Adverse effect of glucocorticoids and synthetic analogues,subsequent encounter Patsy had an excellent response of light chains but was noted to have significant hyperglycemia 300-500 fasting blood sugars. He was referred to diabetes management clinic with addition of insulin therapy that has significantly improved control of his blood sugars. Patient also had remarked onsomeblurred vision that improved with control of blood [...] vitamin D2 therapy 50,000 units orally for low25 hydroxy vitamin D stores. He may take supplemental calcium once daily. (7) Encounter for chemotherapy management Started cycle 1 day 1 03/12/2020: Daratumumab 16 mg/kg IV weekly, bortezomib 1.3 mg/kg subcu twice weekly, dexamethasone 40 mg weekly. We added Revlimid 5 mg every other day of each 21-day cycle with cycle 2 due to excellent reductionof kappa light chains (recommended by Dr. Hall [...] for coordination of care (as documented) and liim-vk-kifg counseling of patient and/or family. Dictated By: Brook Huddleston MD DD/ 1025 Signed By: <Electronically signed by MD Brook Huddleston> 10/15/20 [address] [facility] Work Phone: 1(277) 730-356603-02-2021 Progress note Author Brook Huddleston [facility] October 15, 2020 10:42pmNote Date/TimeMar2020 10:26[facility] [place] [id number] Hem/Onc Follow Up Note - OP Signed Patient: Patsy Mills MR#: [id number] : 1945 Acct:[id number] Age/Sex: 75 / M Type: REG RCR Copies to: MD Siva Jaramillo MD Richard R Keller, MD~ Subjective Date/Time of Service: Date of Service: 10/15/2020 Time of Service: 10:25 Chief Complaint: Patient is here today for 4 month follow up vsiit for light chanin neuropathy due to multiple myeloma. He has labs to review. He he had recent stem cell transplant 07/25/2020. He hasneuropathy that has been bothering him HPI: 10/15/2020: [...] up for palliative consultation (previously followed by Olamide Olivia). He has a followup bone marrow [...] completed all of his pretransplant evaluation at [facility] including cardiology visit 11 9 which showed ejection fraction 60%. I have contacted Dr. Hall who noted that today will be his last day of Velcade and we will hold his daratumumab. He was to have a COVID-19 teston 07/11/2020 for planned stem cell collection 07/17 and transplant on 07/23. I clarified with the staff at [facility] this this may be performed at [facility] and forwarded to them. His neuropathy in [...] He has now hemodialysis independent after daratumumab, dexamethasone,and Velcade with addition of Revlimid. Today he reports that he has had increased neuropathy symptoms in hisbilateral hands and feet with mild interference with activity (grade 2). We discussed a 25%dose reduction of Velcade on day 1, day [...] Dr. Hall regarding end of therapy and in1 month I will see him with follow-up myeloma studies. No other new concerns today. 05/07/2020: Patsy is here for 1 month follow-up. Outpatient hemodialysis was stopped after 04/24/2020due to excellent response. He was evaluated by Dr. Quique Hall at [facility] on 04/26/2020. Angel and his note that Dr. Hall felt that he was physiologically about 8 years younger than his chronologic age and would likely be transplant eligible if pretransplant work-updeems this feasible. He recommended continuing current daratumumab and Velcade with low- dose Revlimid. He will reevaluate patient in 1 [...] no toxicities of chemotherapy. He sees Dr. Ochoa for follow-up tomorrow and maintains insulin with [...] has remarkably improved (>90% reduction past month). [place] light chains decreased from 12,000 to 42. Only concernis significant hyperglycemia with dexamethasone. I advised adding NPH insulin 30 Units on weekly Dexamethasone and he is scheduled to see his [...] the following week to review plan and determinewhether plan forHDC/stem cell transplant. 03/14/2020: Patient presents with his today after initiating both outpatienthemodialysis on Thursday//Saturdays and initial cycle of daratumumab, bortezomib, dexamethasone with potential addition of Revlimid after 1 month if less than optimal response. He received his first cycle of combi nation chemotherapy 03/12/2020. --Patient tolerated initial daratumumab infusion reasonably well with brief infusion reaction (dizziness and mild wheezing) that was treated with diphenhydramine, steroids, albuterol, and Demerol forrigors. He completed remaining infusion in an outpatient bed on the inpatient hart Thursday and we ant icipate further weekly daratumumab infusions as an outpatient. [...] kappa light chains, and elevated M spike. Wediscussed in detail the pathophysiology of myeloma but she felt very anxious and overwhelmed and I r eassured her that we will readdress this at further follow-up visits. 2. Patient had a metastatic bone survey showing no areas of lytic disease or pathologic fractures. We discussed CRAB criteria for multiple myeloma diagnosisand that he meets criteria of R renal and Aanemia, but not elevated calcium or bone disease (C and B). She specifically asked is stage of multiple myeloma andwe noted that he still will require beta-2 glycoprotein (ISS) but is most consistentwith stage III. We are still awaiting his [...] could be managed byhis primary physician Dr. Ochoa and he could be referred for diabetes [...] marijuana and would discuss this with his lawn service manager whetherthis would interfere with dialysis. We will also follow closely for cytopenias and reviewed infectious precautions. He has a sonfrom [place] who plans to visit on Thursday and [...] exercise given his recentdialysis and initiation of chemotherapy.I did not specifically address his diet but he may address this with our [facility] nutrition team. He will also receivechemotherapy class with our nurses in the infusion center. PRELIMINARY HISTORY (from initial consult 03/08/2020): This is a 75-year-old male who was transferred from [place] emergency room by [facility] due to critical potassium 8.7 with elevated creatinine 11.2 and BUN 82 on 03/04/2020. We do not have any recent blood work for comparison but he hadnormal creatinine in 2011. He was urgently treated for his hyperkalemia and dialysis was arranged emergently by nephrology team. He has now stabilized on dialysisand had extensive work-up for etiology of his acute renal failure with severe anemia felt to be dueto anemia of renal insufficiency. Iron studies returned normal with ferritin 160, but B12 low at 84and folate low normal at 5.2. He is [...] day 0 autologous stem cell transplant 07/25/2020at [facility]. ROS Details: All systems [...] disturbance and headache. No focal neurologic deficits orhistory of stroke. Positive for painful sensory neuropathy in legs, worse after transplant. PSYCHIATRIC: Negative for anxiety or depression. DERMATOLOGICAL: Negative for pruritus and rash. Negative for suspicious skin lesions. MUSCULOSKELETAL: Positive for back pain and and thigh pain for the past few weeks. Positive for legcramps. Added ferrous sulfate once daily for iron [...] 48.3, U Random Total Protein 4.7, U Eysvq-5-Bdxhygxl (%) 7.2, U Random p-6-Vozghgpi % 11.5, U Random b-Globulin % 12.0, U Random Gamma Glob % 21.1, U Random M-Anselmo (%) Not observed, Urine Random PEP Note , Urine Immunofixation 10/08/20 10:02: Serum Total Protein 5.9 L, Albumin (Send Out) 3.4, Globulin (PEP) 2.5, Albumin/Globulin (PEP) 1.4, Wdeog-3-Davjnedzy 0.2, Qouab-9-Iifkmkfwf 0.9, Beta Globulins 0.9, Gamma Globulins 0.5, M-Anselmo Not observed, PEP Note , IgG 525 L, IgA 56 L, IgM 16, Serum Immunofixation , Free [place] LC, Quant 8.7, Free Lambda LC, Quant 3.9 L, Free [place]/Lambda Ratio 2.23 H 10/08/20 10:02: PHA Creatinine [...] % (Auto) 79.2, Lymph % (Auto) 11.3, Randolph % (Auto) 6.7, Eos % (Auto) 2.5, Baso % (Auto) 0.3, Neut # (Auto) 4.0, Lymph # (Auto) 0.6 L, Randolph # (Auto) 0.3, Eos # (Auto) 0.1, [...] week to review results as well as evaluationwith Dr. Hall for possible stem cell transplant. 06/04/2020: Tolerating chemotherapy well other than increasing neuropathy of hands and feet. I willdose reduce Velcade by 25% next cycle. Likely hold therapy after mid Nov for planned stem cell harvest and transplant planning. I will contact Dr. Hall for planned timing. F/u with me in one month. Add dailyferrous sulfate. --He was referred to diabetes management clinic and sees Dr. Ochoa with regularfollow-up by Dr. Rahman since he [...] saturation. Ferritin inappropriately normal due to inflammation frommyeloma. Daily oral iron added due to symptomatic leg cramps and persistent anemia. Recheck iron studies at 6 week f/u visit. (4) History of hemodialysis Initiated inpatient hemodialysis 02/2020, then transitioned to outpatient hemodialysis 3 times weekly Thursday//Thursday schedule. Chemotherapy given Thursday/. I explained to patient andhis that with light chain nephropathy once we [...] - Adverse effect of glucocorticoids and synthetic analogues,subsequent encounter Patsy had an excellent response of light chains but was noted to have significant hyperglycemia 300-500 fasting blood sugars. He was referred to diabetes management clinic with addition of insulin therapy that has significantly improved control of his blood sugars. Patient also had remarked onsomeblurred vision that improved with control of blood [...] vitamin D2 therapy 50,000 units orally for low25 hydroxy vitamin D stores. He may take supplemental calcium once daily. (7) Encounter for chemotherapy management Started cycle 1 day 1 03/12/2020: Daratumumab 16 mg/kg IV weekly, bortezomib 1.3 mg/kg subcu twice weekly, dexamethasone 40 mg weekly. We added Revlimid 5 mg every other day of each 21-day cycle with cycle 2 due to excellent reductionof kappa light chains (recommended by Dr. Hall [...] for coordination of care (as documented) and urgy-ya-vfjj counseling of patient and/or family. Dictated By: Brook Huddleston MD DD/ [id number] Signed By: <Electronically signed by MD Brook Huddleston> 10/15/20 [address] [facility] Work Phone: [phone]) 457-830611-16-2020 Progress note Author Brook Huddleston [facility] July 02, 2020 10:43amNote Date/TimeNov2019 9:04[facility] [place] [address] Hem/Onc Follow Up Note - OP Signed Patient: Patsy Mills MR#: [id number] : 1945 Acct:[id number] Age/Sex: 75 / M Type: REG RCR Copies to: MD Helen Jaramillo MD~ Subjective Date/Time of Service: Date of Service: 07/02/2020 Time of Service: 09:04 Chief Complaint: Patient is here for one month follow up, lab work drawn today. Patient is scheduled for transplant on Jul 13. Patient is scheduled for treatment today. Patient has lost 10lbs sincelast visit. HPI: 07/02/2020: Patsy has completed all of his pretransplant evaluation at [facility] including cardiology visit 11 9 which showed ejection fraction 60%. I have contacted Dr. Hall who noted that today will be his last day of Velcade and we will hold his daratumumab. He was to have a COVID-19 teston 07/11/2020 for planned stem cell collection 07/17 and transplant on 07/23. I clarified with the staff at [facility] this this may be performed at [facility] and forwarded to them. His neuropathy in [...] He has now hemodialysis independent after daratumumab, dexamethasone,and Velcade with addition of Revlimid. Today he reports that he has had increased neuropathy symptoms in hisbilateral hands and feet with mild interference with activity (grade 2). We discussed a 25%dose reduction of Velcade on day 1, day [...] Dr. Hall regarding end of therapy and in1 month I will see him with follow-up myeloma studies. No other new concerns today. 05/07/2020: Patsy is here for 1 month follow-up. Outpatient hemodialysis was stopped after 04/24/2020due to excellent response. He was evaluated by Dr. Small at [facility] on 04/26/2020.Angel and his note that Dr. Hall felt [...] no toxicities of chemotherapy. He sees Dr. Ochoa for follow-up tomorrow and maintains insulin with [...] has remarkably improved (>90% reduction past month). [place] light chains decreased from 12,000 to 42. [...] response. He received his first cycle of combi nation chemotherapy 03/12/2020. --Patient tolerated initial daratumumab infusion reasonably well with brief infusion reaction (dizziness and mild wheezing) that was treated with diphenhydramine, steroids, albuterol, and Demerol forrigors. He completed remaining infusion in an outpatient bed on the inpatient hart Thursday and we ant icipate further weekly daratumumab infusions as an outpatient. [...] kappa light chains, and elevated M spike. Wediscussed in detail the pathophysiology of myeloma but she felt very anxious and overwhelmed and I r eassured her that we will readdress this at further follow-up visits. 2. Patient had a metastatic bone survey showing no areas of lytic disease or pathologic fractures. We discussed CRAB criteria for multiple myeloma diagnosisand that he meets criteria of R renal and Aanemia, but not elevated calcium or bone disease (C and B). She specifically asked is stage of multiple myeloma andwe noted that he still will require beta-2 glycoprotein (ISS) but is most consistentwith stage III. We are still awaiting his [...] could be managed byhis primary physician Dr. Ochoa and he could be referred for diabetes [...] marijuana and would discuss this with his lawn service manager whetherthis would interfere with dialysis. We will also follow closely for cytopenias and reviewed infectious precautions. He has a [facility] who plans to visit on Thursday and [...] exercise given his recentdialysis and initiation of chemotherapy.I did not specifically address his diet but he may address this with our [facility] nutrition team. He will also receivechemotherapy class with our nurses in the infusion center. PRELIMINARY HISTORY (from initial consult 03/08/2020): This is a 75-year-old male who was transferred from [place] emergency room by [facility] due to critical potassium 8.7 with elevated creatinine 11.2 and BUN 82 on 03/04/2020. We do not have any recent blood work for comparison but he hadnormal creatinine in 2012. He was urgently treated for his hyperkalemia and dialysis was arranged emergently by nephrology team. He has now stabilized on dialysisand had extensive work-up for etiology of his acute renal failure with severe anemia felt to be dueto anemia of renal insufficiency. Iron studies returned normal with ferritin 160, but B12 low at 84and folate low normal at 5.2. He is [...] to be coordinated with nursing staffdue to [facility]. - Summary of Therapies [...] 0 autologous stem cell transplant 07/23/2020 at [facility]. ROS Details: All systems reviewed & [...] renal failure requiring dialysis--off dialysis 04/24/2020. Prior nephrolithiasispreviously followed by Dr. Seals. ENDOCRINE: Negative for cold intolerance and heat intolerance. Improvement of prior hyperglycemia with home blood sugars in the 200s to 300s range--now 100- 200s on supplemental insulin glargine. CENTRAL NERVOUS SYSTEM: Negative for gait disturbance and headache. No focal neurologic deficits orhistory of stroke. PSYCHIATRIC: Negative for anxiety or depression. DERMATOLOGICAL: Negative for pruritus and rash. Negative for suspicious skin lesions. MUSCULOSKELETAL: Positive for back pain and and thigh pain for the past few weeks. Positive for legcramps. Added ferrous sulfate once daily for iron saturation 11%. Added tramadol 50 mg every 6 hours as needed 05/07/2020. HEMATOLOGICAL: Negative for bleeding and easy bruising. Negative for history of transfusion (other than 1 unit packed red blood cells prior admission). Positive for left basilic vein thrombus on Doppler ultrasound 03/12/2020. ALLERGY: Negative for environmental allergies and food allergies. [facility] - History Attestation statement: The [...] L, Hct 33.7 L, MCV 96.1, MCH 32.7,MCHC 34.1, RDW 15.2 H, Plt Count 278, MPV 8.0, Neut % (Auto)77.6, Lymph % (Auto) 12.3, Randolph % (Auto) 7.3, Eos % (Auto) 2.1, Baso % (Auto) 0.7, Neut # (Auto) 6.7, Lymph # (Auto) 1.1, Randolph # (Auto) 0.6, Eos # (Auto) 0.2,Baso # (Auto) 0.1, Nucleated RBC % (auto) 0.0 - Other Results Results/Comments: [facility], [address] [place] [address] and TRANSTHORACIC ECHOCARDIOGRAM REPORT Patient Name: PATSY Suarez Physician: [id number] Ti Grayson MD Study Date: 06/25/2020 Referring Physician: Quique Hall MRN/PID: [id number] PCP: Accession/Order#: [id number] Department Location: [facility] Date of : 1945 Fellow: Gender: M Nurse: Admit Date: Security Strategist: Lavonne Turcios [facility] Admission Status: Outpatient Additional Staff: Height: 180.34 cm CC Report to: Weight: 90.72 kg Study Type: Onco-Cardiology Echo BSA: 2.11 m2 Blood Pressure: 135 /82 mmHg Diagnosis/ICD: Z94.84-Stem cell transplant status Indication: Multiple myeloma; Stem-cell transplant Procedure/CPT: Echo Complete w Full Doppler-[id number]; 3D Rendering w/o independent workstation-[id number]; Myocardial Strain Imaging-[id number] CONCLUSIONS: 1. The left ventricular systolic function is normal with a 60% estimated ejection fraction. 2. Spectral Doppler shows an impaired relaxation pattern of left ventricular diastolic filling. 3. Mild aortic valve stenosis. 4.Strain values are equivocal. [id number] Ti Grayson MD Electronically signed on 06/25/2020 [...] for multiple myeloma--70% plasma cells without amyloid dep ositionidentified in small marrow specimen. Normal baseline skeletal [...] week to review results as well as evaluationwith Dr. Hall for possible stem cell transplant. 06/04/2020: Tolerating chemotherapy well other than increasing neuropathy of hands and feet. I willdose reduce Velcade by 25% next cycle. Likely hold therapy after mid Jun for planned stem cell harvest and transplant planning. I will contact Dr. Hall for planned timing. F/u with me in one month. Add dailyferrous sulfate. --He was referred to diabetes management clinic and sees Dr. Ochoa with regularfollow-up by Dr. Rahman since he [...] Chemotherapy given Thursday/. I explained to patient andhis that with light chain nephropathy once we [...] - Adverse effect of glucocorticoids and synthetic analogues,subsequent encounter Patsy had an excellent response of light chains but was noted to have significant hyperglycemia 300-500 fasting blood sugars. He was referred to diabetes management clinic with addition of insulin therapy that has significantly improved control of his blood sugars. Patient also had remarked on some blurred vision that improved with control of blood sugars. Continue follow- up of blood sugars during admission for transplant in early July--I clarified with the patient and his that all ofhis insulin management will occur as an inpatient in [place]. Increased peripheral neuropathy complaints in bilateral hands and feet now stabilized after 25% dose reduction of Velcade about 1 monthago (previously neuropathy only in third through fifth [...] vitamin D2 therapy 50,000 units orally for low25 hydroxy vitamin D stores. He may take [...] cycle with cycle 2 due to excellent reductionof kappa light chains (recommended by Dr. Hall malignanthematology). 06/04/2020: 25% Bortezumab (100% all other meds) due to worsening neuropathy. Last dose of 4009 07/02/2020) and holding daratumumab per request of Dr. Hall. Plan for HDC/PBSCT in early July 2020. - Chemo Plan Chemo Plan (Dose, Rate, Freq): Daratumumab 16 mg/kg IV weekly, bortezomib 1.3 mg/kg subcu twice weekly, dexamethasone 40 mg weeklyfor each 21-day cycle as directed (cycle 1 [...] for coordination of care (as documented) and ojeh-xz-labp counseling of patient and/or family. Dictated By: Brook Huddleston MD DD/ 0904 Signed By: <Electronically signed by MD Brook Huddleston> 07/02/20 [address] [facility] Work Phone: [phone]) 533-314811-16-2020 Progress note Author Brook Huddleston [facility] July 02, 2020 10:43amNote Date/TimeNovember 2019 9:04[facility] [place] [address] Hem/Onc Follow Up Note - OP Signed Patient: Patsy Mills MR#: [id number] : 1945 Acct:[id number] Age/Sex: 75 / M Type: REG RCR Copies to: MD Helen Jaramillo MD~ Subjective Date/Time of Service: Date of Service: 07/02/2020 Time of Service: 09:04 Chief Complaint: Patient is here for one month follow up, lab work drawn today. Patient is scheduled for transplant on Jul 13. Patient is scheduled for treatment today. Patient has lost 10lbs sincelast visit. HPI: 07/02/2020: Patsy has completed all of his pretransplant evaluation at [facility] including cardiology visit 11 9 which showed ejection fraction 60%. I have contacted Dr. Hall who noted that today will be his last day of Velcade and we will hold his daratumumab. He was to have a COVID-19 teston 07/11/2020 for planned stem cell collection 07/17 and transplant on 07/23. I clarified with the staff at [facility] this this may be performed at [facility] and forwarded to them. His neuropathy in [...] He has now hemodialysis independent after daratumumab, dexamethasone,and Velcade with addition of Revlimid. Today he reports that he has had increased neuropathy symptoms in hisbilateral hands and feet with mild interference with activity (grade 2). We discussed a 25%dose reduction of Velcade on day 1, day [...] Dr. Hall regarding end of therapy and in1 month I will see him with follow-up myeloma studies. No other new concerns today. 05/07/2020: Patsy is here for 1 month follow-up. Outpatient hemodialysis was stopped after 04/24/2020due to excellent response. He was evaluated by Dr. Small at [facility] on 04/26/2020.Angel and his note that Dr. Hall felt [...] no toxicities of chemotherapy. He sees Dr. Ochoa for follow-up tomorrow and maintains insulin with [...] has remarkably improved (>90% reduction past month). [place] light chains decreased from 12,000 to 42. [...] response. He received his first cycle of combi nation chemotherapy 03/12/2020. --Patient tolerated initial daratumumab infusion reasonably well with brief infusion reaction (dizziness and mild wheezing) that was treated with diphenhydramine, steroids, albuterol, and Demerol forrigors. He completed remaining infusion in an outpatient bed on the inpatient ahrt Thursday and we ant icipate further weekly daratumumab infusions as an outpatient. [...] kappa light chains, and elevated M spike. Wediscussed in detail the pathophysiology of myeloma but she felt very anxious and overwhelmed and I r eassured her that we will readdress this at further follow-up visits. 2. Patient had a metastatic bone survey showing no areas of lytic disease or pathologic fractures. We discussed CRAB criteria for multiple myeloma diagnosisand that he meets criteria of R renal and Aanemia, but not elevated calcium or bone disease (C and B). She specifically asked is stage of multiple myeloma andwe noted that he still will require beta-2 glycoprotein (ISS) but is most consistentwith stage III. We are still awaiting his [...] could be managed byhis primary physician Dr. Ochoa and he could be referred for diabetes [...] marijuana and would discuss this with his lawn service manager whetherthis would interfere with dialysis. We will also follow closely for cytopenias and reviewed infectious precautions. He has a [facility] who plans to visit on Thursday and [...] exercise given his recentdialysis and initiation of chemotherapy.I did not specifically address his diet but he may address this with our [facility] nutrition team. He will also receivechemotherapy class with our nurses in the infusion center. PRELIMINARY HISTORY (from initial consult 03/08/2020): This is a 75-year-old male who was transferred from [place] emergency room by [facility] due to critical potassium 8.7 with elevated creatinine 11.2 and BUN 82 on 03/04/2020. We do not have any recent blood work for comparison but he hadnormal creatinine in 2011. He was urgently treated for his hyperkalemia and dialysis was arranged emergently by nephrology team. He has now stabilized on dialysisand had extensive work-up for etiology of his acute renal failure with severe anemia felt to be dueto anemia of renal insufficiency. Iron studies returned normal with ferritin 160, but B12 low at 84and folate low normal at 5.2. He is [...] to be coordinated with nursing staffdue to [facility]-19 visitor restriction policy. - Summary of Therapies [...] 0 autologous stem cell transplant 07/23/2020 at [facility]. ROS Details: All systems reviewed & [...] renal failure requiring dialysis--off dialysis 04/24/2020. Prior nephrolithiasispreviously followed by Dr. Seals. ENDOCRINE: Negative for cold intolerance and heat intolerance. Improvement of prior hyperglycemia with home blood sugars in the 200s to 300s range--now 100- 200s on supplemental insulin glargine. CENTRAL NERVOUS SYSTEM: Negative for gait disturbance and headache. No focal neurologic deficits orhistory of stroke. PSYCHIATRIC: Negative for anxiety or depression. DERMATOLOGICAL: Negative for pruritus and rash. Negative for suspicious skin lesions. MUSCULOSKELETAL: Positive for back pain and and thigh pain for the past few weeks. Positive for legcramps. Added ferrous sulfate once daily for iron saturation 11%. Added tramadol 50 mg every 6 hours as needed 05/07/2020. HEMATOLOGICAL: Negative for bleeding and easy bruising. Negative for history of transfusion (other than 1 unit packed red blood cells prior admission). Positive for left basilic vein thrombus on Doppler ultrasound 03/12/2020. ALLERGY: Negative for environmental allergies and food allergies. [facility] - History Attestation statement: The [...] L, Hct 33.7 L, MCV 96.1, MCH 32.7,MCHC 34.1, RDW 15.2 H, Plt Count 278, MPV 8.0, Neut % (Auto)77.6, Lymph % (Auto) 12.3, Randolph % (Auto) 7.3, Eos % (Auto) 2.1, Baso % (Auto) 0.7, Neut # (Auto) 6.7, Lymph # (Auto) 1.1, Randolph # (Auto) 0.6, Eos # (Auto) 0.2,Baso # (Auto) 0.1, Nucleated RBC % (auto) 0.0 - Other Results Results/Comments: [facility], [address] [place] [address] and TRANSTHORACIC ECHOCARDIOGRAM REPORT Patient Name: PATSY MILLS Reading Physician: [id number] Ti Grayson MD Study Date: 06/25/2020 Referring Physician: Quique Hall MRN/PID: [id number] PCP: Accession/Order#: [id number] Department Location: [facility] Date of : 1945 Fellow: Gender: M Nurse: Admit Date: Security Strategist: Lavonne Turcios [facility] Admission Status: Outpatient Additional Staff: Height: 180.34 cm CC Report to: Weight: 90.72 kg Study Type: Onco-Cardiology Echo BSA: 2.11 m2 Blood Pressure: 135 /82 mmHg Diagnosis/ICD: Z94.84-Stem cell transplant status Indication: Multiple myeloma; Stem-cell transplant Procedure/CPT: Echo Complete w Full Doppler-29783; 3D Rendering w/o independent workstation-[id number]; Myocardial Strain Imaging-[id number] CONCLUSIONS: 1. The left ventricular systolic function is normal with a 60% estimated ejection fraction. 2. Spectral Doppler shows an impaired relaxation pattern of left ventricular diastolic filling. 3. Mild aortic valve stenosis. 4.Strain values are equivocal. [id number] Ti Grayson MD Electronically signed on 06/25/2020 [...] for multiple myeloma--70% plasma cells without amyloid dep ositionidentified in small marrow specimen. Normal baseline skeletal [...] week to review results as well as evaluationwith Dr. Hall for possible stem cell transplant. 06/04/2020: Tolerating chemotherapy well other than increasing neuropathy of hands and feet. I willdose reduce Velcade by 25% next cycle. Likely hold therapy after mid Nov for planned stem cell harvest and transplant planning. I will contact Dr. Hall for planned timing. F/u with me in one month. Add dailyferrous sulfate. --He was referred to diabetes management clinic and sees Dr. Ochoa with regularfollow-up by Dr. Rahman since he [...] Chemotherapy given Thursday/. I explained to patient andhis that with light chain nephropathy once we [...] - Adverse effect of glucocorticoids and synthetic analogues,subsequent encounter Patsy had an excellent response of light chains but was noted to have significant hyperglycemia 300-500 fasting blood sugars. He was referred to diabetes management clinic with addition of insulin therapy that has significantly improved control of his blood sugars. Patient also had remarked on some blurred vision that improved with control of blood sugars. Continue follow- up of blood sugars during admission for transplant in early July--I clarified with the patient and his that all ofhis insulin management will occur as an inpatient in [place]. Increased peripheral neuropathy complaints in bilateral hands and feet now stabilized after 25% dose reduction of Velcade about 1 monthago (previously neuropathy only in third through fifth [...] vitamin D2 therapy 50,000 units orally for low25 hydroxy vitamin D stores. He may take [...] cycle with cycle 2 due to excellent reductionof kappa light chains (recommended by Dr. Hall malignanthematology). 06/04/2020: 25% Bortezumab (100% all other meds) due to worsening neuropathy. Last dose of 4009 07/02/2020) and holding daratumumab per request of Dr. Hall. Plan for HDC/PBSCT in early July 2020. - Chemo Plan Chemo Plan (Dose, Rate, Freq): Daratumumab 16 mg/kg IV weekly, bortezomib 1.3 mg/kg subcu twice weekly, dexamethasone 40 mg weeklyfor each 21-day cycle as directed (cycle 1 [...] for coordination of care (as documented) and ggjq-[id number] counseling of patient and/or family. Dictated By: Brook Huddleston MD DD/ 0904 Signed By: <Electronically signed by MD Brook Huddleston> 07/02/20 1043 [facility] Work Phone: [phone] 648-588710-19-2020 Progress note Author Brook Huddleston [facility] June 04, 2020 12:42pmNote Date/TimeOct2019 8:39[facility] [place] [address] Hem/Onc Follow Up Note - OP Signed Patient: Patsy Mills MR#: [id number] : 1945 Acct:[id number] Age/Sex: 75 / M Type: REG RCR Copies to: Quique Hall MD [facility] Palliative Helen Ochoa MD~ Subjective Date/Time of Service: Date of Service: 06/04/2020 Time of Service: 08:38 Chief Complaint: Patient is here for follow up before tx today, patient is on last cycle of Revlimid. Transplant process is to start after Thanksgi. Patient complains of neuropathy. HPI: 06/04/2020: Met with Dr. Hall on 05/24/2020 to discuss planning for high-dose chemotherapy peripheral blood stem cell transplant. He has now hemodialysis independent after daratumumab, dexamethasone,and Velcade with addition of Revlimid. Today he reports that he has had increased neuropathy symptoms in hisbilateral hands and feet with mild interference with activity (grade 2). We discussed a 25%dose reduction of Velcade on day 1, day [...] Dr. Hall regarding end of therapy and in1 month I will see him with follow-up myeloma studies. No other new concerns today. 05/07/2020: Patsy is here for 1 month follow-up. Outpatient hemodialysis was stopped after 04/24/2020due to excellent response. He was evaluated by Dr. Small at [facility] on 04/26/2020.Angel and his note that Dr. Hall felt that he was physiologically about 8 years younger than his chronologic age and would likely be transplant eligible if pretransplant work- updeems this feasible. He recommended continuing current daratumumab [...] no toxicities of chemotherapy. He sees Dr. Ochoa for follow-up tomorrow and maintains insulin with stabilization of hisblood sugars following with diabetes management clinic. I [...] has remarkably improved (>90% reduction past month). [place] light chains decreased from 12,000 to 42. [...] response. He received his first cycle of combi nation chemotherapy 03/12/2020. --Patient tolerated initial daratumumab infusion reasonably well with brief infusion reaction (dizziness and mild wheezing) that was treated with diphenhydramine, steroids, albuterol, and Demerol forrigors. He completed remaining infusion in an outpatient bed on the inpatient hart Thursday and we ant icipate further weekly daratumumab infusions as an outpatient. [...] kappa light chains, and elevated M spike. Wediscussed in detail the pathophysiology of myeloma but she felt very anxious and overwhelmed and I r eassured her that we will readdress this at further follow-up visits. 2. Patient had a metastatic bone survey showing no areas of lytic disease or pathologic fractures. We discussed CRAB criteria for multiple myeloma diagnosisand that he meets criteria of R renal and Aanemia, but not elevated calcium or bone disease (C and B). She specifically asked is stage of multiple myeloma andwe noted that he still will require beta-2 glycoprotein (ISS) but is most consistentwith stage III. We are still awaiting his [...] could be managed byhis primary physician Dr. Ochoa and he could be referred for diabetes [...] marijuana and would discuss this with his lawn service manager whetherthis would interfere with dialysis. We will also follow closely for cytopenias and reviewed infectious precautions. He has a sonfrom [place] who plans to visit on Thursday and [...] exercise given his recentdialysis and initiation of chemotherapy.I did not specifically address his diet but he may address this with our [facility] nutrition team. He will also receivechemotherapy class with our nurses in the infusion center. PRELIMINARY HISTORY (from initial consult 03/08/2020): This is a 75-year-old male who was transferred from [place] emergency room by [facility] due to critical potassium 8.7 with elevated creatinine 11.2 and BUN 82 on 03/04/2020. We do not have any recent blood work for comparison but he hadnormal creatinine in 2011. He was urgently treated for his hyperkalemia and dialysis was arranged emergently by nephrology team. He has now stabilized on dialysisand had extensive work-up for etiology of his acute renal failure with severe anemia felt to be dueto anemia of renal insufficiency. Iron studies returned normal with ferritin 160, but B12 low at 84and folate low normal at 5.2. He is [...] to be coordinated with nursing staffdue to [facility]- visitor restriction policy. - Summary of Therapies [...] renal failure requiring dialysis--off dialysis 04/24/2020. Prior nephrolithiasispreviously followed by Dr. Seals. ENDOCRINE: Negative for cold intolerance and heat intolerance. Improvement of prior hyperglycemia with home blood sugars in the 200s to 300s range--now mid 100s on supplemental insulin glargine. CENTRAL NERVOUS SYSTEM: Negative for gait disturbance and headache. No focal neurologic deficits orhistory of stroke. PSYCHIATRIC: Negative for anxiety or depression. DERMATOLOGICAL: Negative for pruritus and rash. Negative for suspicious skin lesions. MUSCULOSKELETAL: Positive for back pain and and thigh pain for the past few weeks. Positive for legcramps. Added ferrous sulfate once daily for iron saturation 11%. Added tramadol 50 mg every 6 hours as needed 05/07/2020. HEMATOLOGICAL: Negative for bleeding and easy bruising. Negative for history of transfusion (other than 1 unit packed red blood cells prior admission). Positive for left basilic vein thrombus on Doppler ultrasound 03/12/2020. ALLERGY: Negative for environmental allergies and food allergies. [facility] - History Attestation statement: The [...] Neut % (Auto)68.4, Lymph % (Auto) 14.8, Randolph % (Auto)10.5, Eos % (Auto) 5.5, Baso % (Auto) 0.8, Neut # (Auto) 4.6, Lymph # (Auto) 1.0, Randolph # (Auto) 0.7, Eos # (Auto) 0.4,Baso # (Auto) 0.1, Nucleated RBC % (auto) 0.0 05/24/20 10:02: Ur Random Albumin 50.8, U Random Total Protein 8.8, U Rzanx-4-Pdfcaomc (%) 6.8, U Random r-5-Xfcxnwbf % 19.6, U Random b-Globulin % 14.9, [...] for multiple myeloma--70% plasma cells without amyloid dep ositionidentified in small marrow specimen. Normal baseline skeletal [...] week to review results as well as evaluationwith Dr. Hall for possible stem cell transplant. 06/04/2020: Tolerating chemotherapy well other than increasing neuropathy of hands and feet. I willdose reduce Velcade by 25% next cycle. Likely hold therapy after mid Nov for planned stem cell harvest and transplant planning. I will contact Dr. Hall for planned timing. F/u with me in one month. Add dailyferrous sulfate. --He was referred to diabetes management clinic and sees Dr. Ochoa with regularfollow-up by Dr. Rahman since he [...] Chemotherapy given Thursday/. 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 For now we will continue daratumumab, Velcade(with 25% DR for neuropathy), dexamethasone, and low-dose Revlimid. (5) Steroid-induced diabetes mellitus Qualifiers: Encounter type: subsequent encounter Qualified Code(s): E09.9 - Drug or chemical induced diabetes mellitus without complications; T38.0X5D - Adverse effect of glucocorticoids and synthetic analogues,subsequent encounter Patsy had an excellent response of light chains but was noted to have significant hyperglycemia 300-500 fasting blood sugars. He was referred to diabetes management clinic with addition of insulin therapy that has significantly improved control of his blood sugars. Patient also had remarked on some blurred vision that improved with control of blood sugars. Continue follow- up of blood sugars witheach week of dexamethasone therapy, daratumumab, Velcade, and [...] vitamin D2 therapy 50,000 units orally for low25 hydroxy vitamin D stores. He may take [...] cycle with cycle 2 due to excellent reductionof kappa light chains (recommended by Dr. Hall malignanthematology). 06/04/2020: 25% DR Bortezumab (100% all other meds) due to worsening neuropathy. Plan for HDC/PBSCTin late June 2020. - Chemo Plan Chemo Plan (Dose, Rate, Freq): Daratumumab 16 mg/kg IV weekly, bortezomib 1.3 mg/kg subcu twice weekly, dexamethasone 40 mg weeklyfor each 21-day cycle as directed (cycle 1 [...] for coordination of care (as documented) and wkev-uz-bktt counseling of patient and/or family. Dictated By: Brook Huddleston MD DD/ 7 Signed By: <Electronically signed by MD Brook Huddleston> 06/04/20 1242 [facility] Work Phone: [phone] 439-298410-19-2020 Progress note Author Brook Huddleston [facility] June 04, 2020 12:42pmNote Date/TimeOct2019 8:39[facility] [place] [address] Hem/Onc Follow Up Note - OP Signed Patient: Patsy Mills MR#: [id number] : 1945 Acct:[id number] Age/Sex: 75 / M Type: REG RCR Copies to: Quique Hall MD [facility] Palliative Helen Ochoa MD~ Subjective Date/Time of Service: Date of Service: 06/04/2020 Time of Service: 08:38 Chief Complaint: Patient is here for follow up before tx today, patient is on last cycle of Revlimid. Transplant process is to start after gi. Patient complains of neuropathy. HPI: 06/04/2020: Met with Dr. Hall on 05/24/2020 to discuss planning for high-dose chemotherapy peripheral blood stem cell transplant. He has now hemodialysis independent after daratumumab, dexamethasone,and Velcade with addition of Revlimid. Today he reports that he has had increased neuropathy symptoms in hisbilateral hands and feet with mild interference with activity (grade 2). We discussed a 25%dose reduction of Velcade on day 1, day [...] Dr. Hall regarding end of therapy and in1 month I will see him with follow-up myeloma studies. No other new concerns today. 05/07/2020: Patsy is here for 1 month follow-up. Outpatient hemodialysis was stopped after 04/24/2020due to excellent response. He was evaluated by Dr. Small at [facility] on 04/26/2020.Angel and his note that Dr. Hall felt that he was physiologically about 8 years younger than his chronologic age and would likely be transplant eligible if pretransplant work- updeems this feasible. He recommended continuing current daratumumab [...] no toxicities of chemotherapy. He sees Dr. Ochoa for follow-up tomorrow and maintains insulin with stabilization of hisblood sugars following with diabetes management clinic. I [...] has remarkably improved (>90% reduction past month). [place] light chains decreased from 12,000 to 42. [...] response. He received his first cycle of combi nation chemotherapy 03/12/2020. --Patient tolerated initial daratumumab infusion reasonably well with brief infusion reaction (dizziness and mild wheezing) that was treated with diphenhydramine, steroids, albuterol, and Demerol forrigors. He completed remaining infusion in an outpatient bed on the inpatient hart Thursday and we ant icipate further weekly daratumumab infusions as an outpatient. [...] kappa light chains, and elevated M spike. Wediscussed in detail the pathophysiology of myeloma but she felt very anxious and overwhelmed and I r eassured her that we will readdress this at further follow-up visits. 2. Patient had a metastatic bone survey showing no areas of lytic disease or pathologic fractures. We discussed CRAB criteria for multiple myeloma diagnosisand that he meets criteria of R renal and Aanemia, but not elevated calcium or bone disease (C and B). She specifically asked is stage of multiple myeloma andwe noted that he still will require beta-2 glycoprotein (ISS) but is most consistentwith stage III. We are still awaiting his [...] could be managed byhis primary physician Dr. Ochoa and he could be referred for diabetes [...] marijuana and would discuss this with his lawn service manager whetherthis would interfere with dialysis. We will also follow closely for cytopenias and reviewed infectious precautions. He has a sonfrom [place] who plans to visit on Thursday and [...] exercise given his recentdialysis and initiation of chemotherapy.I did not specifically address his diet but he may address this with our [facility] nutrition team. He will also receivechemotherapy class with our nurses in the infusion center. PRELIMINARY HISTORY (from initial consult 03/08/2020): This is a 75-year-old male who was transferred from [place] emergency room by [facility] due to critical potassium 8.7 with elevated creatinine 11.2 and BUN 82 on 03/04/2020. We do not have any recent blood work for comparison but he hadnormal creatinine in 2012. He was urgently treated for his hyperkalemia and dialysis was arranged emergently by nephrology team. He has now stabilized on dialysisand had extensive work-up for etiology of his acute renal failure with severe anemia felt to be dueto anemia of renal insufficiency. Iron studies returned normal with ferritin 160, but B12 low at 84and folate low normal at 5.2. He is [...] renal failure requiring dialysis--off dialysis 04/24/2020. Prior nephrolithiasispreviously followed by Dr. Seals. ENDOCRINE: Negative for cold intolerance and heat intolerance. Improvement of prior hyperglycemia with home blood sugars in the 200s to 300s range--now mid 100s on supplemental insulin glargine. CENTRAL NERVOUS SYSTEM: Negative for gait disturbance and headache. No focal neurologic deficits orhistory of stroke. PSYCHIATRIC: Negative for anxiety or depression. DERMATOLOGICAL: Negative for pruritus and rash. Negative for suspicious skin lesions. MUSCULOSKELETAL: Positive for back pain and and thigh pain for the past few weeks. Positive for legcramps. Added ferrous sulfate once daily for iron saturation 11%. Added tramadol 50 mg every 6 hours as needed 05/07/2020. HEMATOLOGICAL: Negative for bleeding and easy bruising. Negative for history of transfusion (other than 1 unit packed red blood cells prior admission). Positive for left basilic vein thrombus on Doppler ultrasound 03/12/2020. ALLERGY: Negative for environmental allergies and food allergies. [facility] - History Attestation statement: The [...] extremity edema; no cyanosis or clubbing. No Vtior sign. NEUROLOGICAL: Alert and oriented. Cranial nerves [...] Neut % (Auto)68.4, Lymph % (Auto) 14.8, Randolph % (Auto)10.5, Eos % (Auto) 5.5, Baso % (Auto) 0.8, Neut # (Auto) 4.6, Lymph # (Auto) 1.0, Randolph # (Auto) 0.7, Eos # (Auto) 0.4,Baso # (Auto) 0.1, Nucleated RBC % (auto) 0.0 05/24/20 10:02: Ur Random Albumin 50.8, U Random Total Protein 8.8, U Uldto-0-Zpbwuabd (%) 6.8, U Random z-1-Bwmibayy % 19.6, U Random b-Globulin % 14.9, [...] for multiple myeloma--70% plasma cells without amyloid dep ositionidentified in small marrow specimen. Normal baseline skeletal [...] week to review results as well as evaluationwith Dr. Hall for possible stem cell transplant. 06/04/2020: Tolerating chemotherapy well other than increasing neuropathy of hands and feet. I willdose reduce Velcade by 25% next cycle. Likely hold therapy after mid Jun for planned stem cell harvest and transplant planning. I will contact Dr. Hall for planned timing. F/u with me in one month. Add dailyferrous sulfate. --He was referred to diabetes management clinic and sees Dr. Ochoa with regularfollow-up by Dr. Rahman since he [...] Chemotherapy given Thursday/. 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 For now we will continue daratumumab, Velcade(with 25% DR for neuropathy), dexamethasone, and low-dose Revlimid. (5) Steroid-induced diabetes mellitus Qualifiers: Encounter type: subsequent encounter Qualified Code(s): E09.9 - Drug or chemical induced diabetes mellitus without complications; T38.0X5D - Adverse effect of glucocorticoids and synthetic analogues,subsequent encounter Patsy had an excellent response of light chains but was noted to have significant hyperglycemia 300-500 fasting blood sugars. He was referred to diabetes management clinic with addition of insulin therapy that has significantly improved control of his blood sugars. Patient also had remarked on some blurred vision that improved with control of blood sugars. Continue follow- up of blood sugars witheach week of dexamethasone therapy, daratumumab, Velcade, and [...] vitamin D2 therapy 50,000 units orally for low25 hydroxy vitamin D stores. He may take [...] cycle with cycle 2 due to excellent reductionof kappa light chains (recommended by Dr. Hall malignanthematology). 06/04/2020: 25% Bortezumab (100% all other meds) due to worsening neuropathy. Plan for HDC/PBSCTin late June 2020. - Chemo Plan Chemo Plan (Dose, Rate, Freq): Daratumumab 16 mg/kg IV weekly, bortezomib 1.3 mg/kg subcu twice weekly, dexamethasone 40 mg weeklyfor each 21-day cycle as directed (cycle 1 day 1 03/12/2020). Added Revlimid 5mg every other day as directed by Dr. Hall early Apr 2020. --25% Velcade 06/04/2020. HDC (Melphalan)/PBSCT in late Jun 2020. Goal of Treatment: Control - Time with Patient Total Time Spent with Patient: 30 min Coordination of Care & Counseling Time: Greater than 50% of time spent with patient was for coordination of care (as documented) and efvd-py-bwzy counseling of patient and/or family. Dictated By: Brook Huddleston MD DD/ 0838 Signed By: <Electronically signed by MD Brook Huddleston> 06/04/20 1242 [facility] Work Phone: [phone]) 491-360909-21-2020 Progress note Author Brook Huddleston [facility] May 07, 2020 10:50amNote Date/TimeSept2019 9:10[facility] [place] [address] Hem/Onc Follow Up Note - OP Signed Patient: Patsy Mills MR#: [id number] : 1945 Acct:[id number] Age/Sex: 75 / M Type: REG RCR Copies to: MD Helen Jaramillo MD~ Subjective Date/Time of Service: Date of Service: 05/07/2020 Time of Service: 08:30 Chief Complaint: Patient is here for follow up before treatment today, no concerns voiced. HPI: 05/07/2020: Patsy is here for 1 month follow-up. Outpatient hemodialysis was stopped after 04/24/2020due to excellent response. He was evaluated by Dr. Small at [facility] on 04/26/2020.Don and his note that Dr. Hall felt [...] no toxicities of chemotherapy. He sees Dr. Ochoa for follow-up tomorrow and maintains insulin with [...] has remarkably improved (>90% reduction past month). [place] light chains decreased from 12,000 to 42. [...] response. He received his first cycle of [facility] chemotherapy 03/12/2020. --Patient tolerated initial daratumumab infusion reasonably well with brief infusion reaction (dizziness and mild wheezing) that was treated with diphenhydramine, steroids, albuterol, and Demerol forrigors. He completed remaining infusion in an outpatient bed on the inpatient hart Thursday and we ant icipate further weekly daratumumab infusions as an outpatient. [...] kappa light chains, and elevated M spike. Wediscussed in detail the pathophysiology of myeloma but she felt very anxious and overwhelmed and I r eassured her that we will readdress this at further follow-up visits. 2. Patient had a metastatic bone survey showing no areas of lytic disease or pathologic fractures. We discussed CRAB criteria for multiple myeloma diagnosisand that he meets criteria of R renal and Aanemia, but not elevated calcium or bone disease (C and B). She specifically asked is stage of multiple myeloma andwe noted that he still will require beta-2 glycoprotein (ISS) but is most consistentwith stage III. We are still awaiting his [...] could be managed byhis primary physician Dr. Ochoa and he could be referred for diabetes [...] marijuana and would discuss this with his lawn service manager whetherthis would interfere with dialysis. We will also follow closely for cytopenias and reviewed infectious precautions. He has a [facility] who plans to visit on Thursday and [...] exercise given his recentdialysis and initiation of chemotherapy.I did not specifically address his diet but he may address this with our [facility] nutrition team. He will also receivechemotherapy class with our nurses in the infusion center. PRELIMINARY HISTORY (from initial consult 03/08/2020): This is a 75-year-old male who was transferred from [place] emergency room by [facility] due to critical potassium 8.7 with elevated creatinine 11.2 and BUN 82 on 03/04/2020. We do not have any recent blood work for comparison but he hadnormal creatinine in 2011. He was urgently treated for his hyperkalemia and dialysis was arranged emergently by nephrology team. He has now stabilized on dialysisand had extensive work-up for etiology of his acute renal failure with severe anemia felt to be dueto anemia of renal insufficiency. Iron studies returned normal with ferritin 160, but B12 low at 84and folate low normal at 5.2. He is [...] to be coordinated with nursing staffdue to [facility]-19 visitor restriction policy. - Summary of Therapies [...] renal failure requiring dialysis--off dialysis 04/24/2020. Prior nephrolithiasispreviously followed by Dr. Seals. ENDOCRINE: Negative for cold intolerance and heat intolerance. Positive for significant hyperglycemia with home blood sugars in the 200s to 300s range--now improved to low 100s on supplemental insulin glargine. CENTRAL NERVOUS SYSTEM: Negative for gait disturbance and headache. No focal neurologic deficits orhistory of stroke. PSYCHIATRIC: Negative for anxiety or [...] Negative for environmental allergies and food allergies. [facility] - History Attestation statement: The [...] % (Auto) 59.7, Lymph % (Auto) 19.5, Randolph % (Auto) 16.9, Eos % (Auto) 3.4, Baso % (Auto) 0.5, Neut # (Auto) 3.2, Lymph # (Auto) 1.0, Randolph # (Auto) 0.9 H, Eos # (Auto) 0.2, Baso # (Auto) 0.0, Nucleated RBC % (auto) 0.3 04/30/20 09:10: Urine Immunofixation 04/30/20 08:15: Serum Total Protein 6.0, Albumin (Send Out) 3.2, Globulin (PEP) 2.8, Albumin/Globulin (PEP) 1.1, Mucnf-8-Phqgvxxqh 0.3, Rtnub-5-Vfpvpfddr 1.1 H,Beta Globulins 0.7, Gamma Globulins 0.7, M-Anselmo 0.5 H, PEP Note , MethylmalonicAcid 183, MMA Comment , IgG 763, IgA 36 L, IgM 31, Free [place] LC, Quant 22.5 H, Free Lambda LC, Quant 8.4, Free [place]/Lambda Ratio 2.68 H - Impressions No new [...] week to review results as well as evaluationwith Dr. Hall for possible stem cell transplant. --He was referred to diabetes management clinic and has follow-up appointment with Dr. Ochoa tomorrow with regular follow-up by Dr. Rahman [...] Chemotherapy given Thursday/. 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 Hall well discuss the case with [facility] hematology tumor board given [...] control blood sugars. Continue follow-up of blood sugarswith each week of dexamethasone therapy, daratumumab, Velcade, [...] his myeloma regimen. Today hemoglobin is improved to9.3 on Aranesp and weekly B12 will be [...] cycle with cycle 2 due to excellent reductionof kappa light chains (recommended by Dr. Hall malignanthematology). - Chemo Plan Chemo Plan (Dose, Rate, Freq): Daratumumab 16 mg/kg IV weekly, bortezomib 1.3 mg/kg subcu twice weekly, dexamethasone 40 mg weeklyfor each 21-day cycle as directed (cycle 1 day 1 03/12/2020). Add Revlimid 5mg every other day as directed by Dr. Hall early . Goal of Treatment: Control - Time with Patient Coordination of Care & Counseling Time: Greater than 50% of time spent with patient was for coordination of care (as documented) and fiwn-ws-loqf counseling of patient and/or family. Dictated By: Brook Huddleston MD DD/ Signed By: <Electronically signed by MD Brook Huddleston> 05/07/20 [address] [facility] Work Phone: [phone] Progress note Author Brook Huddleston [facility] May 07, 2020 10:50amNote Date/TimeSept2019 9:10[facility] [place] [address] Hem/Onc Follow Up Note - OP Signed Patient: Patsy Mills MR#: [id number] : 1945 Acct:[id number] Age/Sex: 75 / M Type: REG RCR Copies to: MD Helen Jaramillo MD~ Subjective Date/Time of Service: Date of Service: 05/07/2020 Time of Service: 08:30 Chief Complaint: Patient is here for follow up before treatment today, no concerns voiced. HPI: 05/07/2020: Patsy is here for 1 month follow-up. Outpatient hemodialysis was stopped after 04/24/2020due to excellent response. He was evaluated by Dr. Small at [facility] on 04/26/2020.Angel and his note that Dr. Hall felt [...] no toxicities of chemotherapy. He sees Dr. Ochoa for follow-up tomorrow and maintains insulin with [...] has remarkably improved (>90% reduction past month). [place] light chains decreased from 12,000 to 42. [...] response. He received his first cycle of combi nation chemotherapy 03/12/2020. --Patient tolerated initial daratumumab infusion reasonably well with brief infusion reaction (dizziness and mild wheezing) that was treated with diphenhydramine, steroids, albuterol, and Demerol forrigors. He completed remaining infusion in an outpatient bed on the inpatient hart Thursday and we ant icipate further weekly daratumumab infusions as an outpatient. [...] kappa light chains, and elevated M spike. Wediscussed in detail the pathophysiology of myeloma but she felt very anxious and overwhelmed and I r eassured her that we will readdress this at further follow-up visits. 2. Patient had a metastatic bone survey showing no areas of lytic disease or pathologic fractures. We discussed CRAB criteria for multiple myeloma diagnosisand that he meets criteria of R renal and Aanemia, but not elevated calcium or bone disease (C and B). She specifically asked is stage of multiple myeloma andwe noted that he still will require beta-2 glycoprotein (ISS) but is most consistentwith stage III. We are still awaiting his [...] could be managed byhis primary physician Dr. Ochoa and he could be referred for diabetes [...] marijuana and would discuss this with his lawn service manager whetherthis would interfere with dialysis. We will also follow closely for cytopenias and reviewed infectious precautions. He has a sonfrom [place] who plans to visit on Thursday and [...] exercise given his recentdialysis and initiation of chemotherapy.I did not specifically address his diet but he may address this with our [facility] nutrition team. He will also receivechemotherapy class with our nurses in the infusion center. PRELIMINARY HISTORY (from initial consult 03/08/2020): This is a 75-year-old male who was transferred from [place] emergency room by [facility] due to critical potassium 8.7 with elevated creatinine 11.2 and BUN 82 on 03/04/2020. We do not have any recent blood work for comparison but he hadnormal creatinine in 2011. He was urgently treated for his hyperkalemia and dialysis was arranged emergently by nephrology team. He has now stabilized on dialysisand had extensive work-up for etiology of his acute renal failure with severe anemia felt to be dueto anemia of renal insufficiency. Iron studies returned normal with ferritin 160, but B12 low at 84and folate low normal at 5.2. He is [...] to be coordinated with nursing staffdue to [facility]. - Summary of Therapies [...] renal failure requiring dialysis--off dialysis 04/24/2020. Prior nephrolithiasispreviously followed by Dr. Seals. ENDOCRINE: Negative for cold intolerance and heat intolerance. Positive for significant hyperglycemia with home blood sugars in the 200s to 300s range--now improved to low 100s on supplemental insulin glargine. CENTRAL NERVOUS SYSTEM: Negative for gait disturbance and headache. No focal neurologic deficits orhistory of stroke. PSYCHIATRIC: Negative for anxiety or [...] Negative for environmental allergies and food allergies. [facility] - History Attestation statement: The [...] % (Auto) 59.7, Lymph % (Auto) 19.5, Randolph % (Auto) 16.9, Eos % (Auto) 3.4, Baso % (Auto) 0.5, Neut # (Auto) 3.2, Lymph # (Auto) 1.0, Randolph # (Auto) 0.9 H, Eos # (Auto) 0.2, Baso # (Auto) 0.0, Nucleated RBC % (auto) 0.3 04/30/20 09:10: Urine Immunofixation 04/30/20 08:15: Serum Total Protein 6.0, Albumin (Send Out) 3.2, Globulin (PEP) 2.8, Albumin/Globulin (PEP) 1.1, Blpgq-9-Lgyaicemz 0.3, Hwama-5-Vtpbhaltf 1.1 H,Beta Globulins 0.7, Gamma Globulins 0.7, M-Anselmo 0.5 H, PEP Note , MethylmalonicAcid 183, MMA Comment , IgG 763, IgA 36 L, IgM 31, Free [place] LC, Quant 22.5 H, Free Lambda LC, Quant 8.4, Free [place]/Lambda Ratio 2.68 H - Impressions No new [...] week to review results as well as evaluationwith Dr. Hall for possible stem cell transplant. --He was referred to diabetes management clinic and has follow-up appointment with Dr. Ochoa tomorrow with regular follow-up by Dr. Rahman [...] Chemotherapy given Thursday/. 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 Hall well discuss the case with [facility] hematology tumor board given [...] control blood sugars. Continue follow-up of blood sugarswith each week of dexamethasone therapy, daratumumab, Velcade, [...] his myeloma regimen. Today hemoglobin is improved to9.3 on Aranesp and weekly B12 will be changed to monthly maintenance therapy. He has not required further blood transfusions since 03/15/2020. Follow-up methylmalonic acid on 04/30/2020 was normal showing adequate replacement. He will continue weekly vitamin D2 [id number] units orally for low 25 hydroxy vitamin [...] cycle with cycle 2 due to excellent reductionof kappa light chains (recommended by Dr. Hall malignanthematology). - Chemo Plan Chemo Plan (Dose, Rate, Freq): Daratumumab 16 mg/kg IV weekly, bortezomib 1.3 mg/kg subcu twice weekly, dexamethasone 40 mg weeklyfor each 21-day cycle as directed (cycle 1 day 1 03/12/2020). Add Revlimid 5mg every other day as directed by Dr. Hall early . Goal of Treatment: Control - Time with Patient Coordination of Care & Counseling Time: Greater than 50% of time spent with patient was for coordination of care (as documented) and [id number] counseling of patient and/or family. Dictated By: Brook Huddleston MD DD/ [id number] Signed By: <Electronically signed by MD Brook Huddleston> 05/07/20 [address] [facility] Work Phone: [phone] Progress note Author Brook Huddleston [facility] April 12, 2020 9:26amNote Date/TimeAugust 2019 8:49[facility] [place] [address] Hem/Onc Follow Up Note - OP Signed with Mario Patient: Patsy Mills MR#: [id number] : 1945 Acct:[id number] Age/Sex: 75 / M Type: REG RCR [...] has remarkably improved (>90% reduction past month). [place] light chains decreased from 12,000 to 42. [...] response. He received his first cycle of combi nation chemotherapy 03/12/2020. --Patient tolerated initial daratumumab infusion reasonably well with brief infusion reaction (dizziness and mild wheezing) that was treated with diphenhydramine, steroids, albuterol, and Demerol forrigors. He completed remaining infusion in an outpatient bed on the inpatient hart Thursday and we ant icipate further weekly daratumumab infusions as an outpatient. [...] kappa light chains, and elevated M spike. Wediscussed in detail the pathophysiology of myeloma but she felt very anxious and overwhelmed and I r eassured her that we will readdress this at further follow-up visits. 2. Patient had a metastatic bone survey showing no areas of lytic disease or pathologic fractures. We discussed CRAB criteria for multiple myeloma diagnosisand that he meets criteria of R renal and Aanemia, but not elevated calcium or bone disease (C and B). She specifically asked is stage of multiple myeloma andwe noted that he still will require beta-2 glycoprotein (ISS) but is most consistentwith stage III. We are still awaiting his chromosomal abnormalities by fluorescence in situ hybridization and will readdress at next follow-up visitwith his final bone marrow biopsy results (this study was only performed 03/08/2020). 3. She has been testing to see if there is cancer elsewhere. We discussed thatsince metastatic bonesurvey showed more lytic areas I do not [...] could be managed byhis primary physician Dr. Ochoa and he could be referred for diabetes [...] marijuana and would discuss this with his lawn service manager whetherthis would interfere with dialysis. We will also follow closely for cytopenias and reviewed infectious precautions. He has a [facility] who plans to visit on Thursday and [...] exercise given his recentdialysis and initiation of chemotherapy.I did not specifically address his diet but he may address this with our [facility] nutrition team. He will also receivechemotherapy class with our nurses in the infusion center. PRELIMINARY HISTORY (from initial consult 03/08/2020): This is a 75-year-old male who was transferred from [place] emergency room by [facility] due to critical potassium 8.7 with elevated creatinine 11.2 and BUN 82 on 03/04/2020. We do not have any recent blood work for comparison but he hadnormal creatinine in 2011. He was urgently treated for his hyperkalemia and dialysis was arranged emergently by nephrology team. He has now stabilized on dialysisand had extensive work-up for etiology of his acute renal failure with severe anemia felt to be dueto anemia of renal insufficiency. Iron studies returned normal with ferritin 160, but B12 low at 84and folate low normal at 5.2. He is [...] to be coordinated with nursing staffdue to [place] [address] visitor restriction policy. - Summary of Therapies [...] negative for fever or night sweats. No recentinfections. HEAD AND NECK: Positive for significant worsening [...] past month since starting dialysis and chemotherapy forlight chain nephropathy. GENITOURINARY: Negative for dysuria and hematuria. Patient now with improved urinary output, diagnosed in February 2020 with renal failure requiring dialysis. Prior nephrolithiasis previously followed byDr. Seals. ENDOCRINE: Negative for cold intolerance and heat intolerance. Positive for significant hyperglycemia with home blood sugars in the 200s to 300s range, seeing Dr. Ochoa later today. CENTRAL NERVOUS SYSTEM: Negative for gait disturbance and headache. No focal neurologic deficits orhistory of stroke. PSYCHIATRIC: Negative for anxiety or [...] L, Hct 26.1 L, MCV 100.2, MCH 34.8,MCHC 34.7, RDW 18.6 H, Plt Count 134 L, MPV 8.6, Neut % (Auto) 65.3, Lymph % (Auto) 18.2, Randolph % (Auto) 13.2, Eos % (Auto) 3.0, Baso % (Auto) 0.3, Neut # (Auto) 3.0, Lymph # (Auto) 0.8 L, Randolph # (Auto) 0.6, Eos # (Auto) 0.1, Baso # (Auto) 0.0, Nucleated RBC % (auto) 0.3 04/02/20 13:55: Ur Random Albumin 38.7, U Random Total Protein 6.6, U Hxlof-3-Xjaolkxv (%) 5.2, U Random k-5-Agupvkck % 16.3, U Random b-Globulin % 26.2, [...] % (Auto) 65.0, Lymph % (Auto) 18.1, Randolph % (Auto) 14.5, Eos % (Auto) 2.0, Baso % (Auto) 0.4, Neut # (Auto) 2.9, Lymph # (Auto) 0.8 L, Randolph # (Auto) 0.7, Eos # (Auto) 0.1, Baso # (Auto) 0.0, Nucleated RBC % (auto) 0.0 04/02/20 08:15: Serum Total Protein 6.8, Albumin (Send Out) 3.2, Globulin (PEP) 3.6, Albumin/Globulin (PEP) 0.9, Kozqq-7-Pfoyhgiif 0.3, Phgxs-1-Jfmzvdtuz 1.1 H,Beta Globulins 0.8, Usju-8-Dvlvgqpcopwxc 5.5 H, Gamma Globulins 1.4, M-Anselmo 1.2H, PEP Note , IgG 1563, IgA 36 L, IgM 47, Serum Immunofixation , Free [place] LC, Quant 42.2 H, Free Lambda LC, Quant 12.4, Free [place]/Lambda Ratio 3.40 H 04/02/20 08:15: Lactate Dehydrogenase [...] to be thrombus present in the left b asilicvein in the upper arm extending to the [...] kappa/lambda light chains) in 4 weeks with f/uvisit with me the following week to review results as well as evaluation with Dr. Hall for possible stem cell transplant. I also discussed diabetes management with Dr. Ochoa and possibly decreasingdialysis to twice per week with Dr. Rahman. [...] we may be able to reverse his renalfailure and potentially he may stop dialysis in the future (likely over several months). High-dose chemotherapy with autologous stem cell transplant is an option in somepatients, and Dr. Hall noted he would meet with Chay Gene to determine if he is a candidate for high dose chemotherapy/stem celltransplant. I sent an emailto Dr. Hall who may discuss the case with [facility] hematology tumorboard given his [...] NPH insulin 30 units weekly and I willdiscuss management of his diabetes with Dr. Ochoa his primary physician for either initiating an insulin regimen or other hypoglycemics and following his diabetes closely. Patient alsohad remarked on some blurred vision and we will coordinate ophthalmology evaluation as well. Continue follow-up ofblood sugars with each week of dexamethasone therapy with daratumumab and Velcade. His only peripheral neuropathy complaints are in his third through fifth fingers of the left hand which he had priorto commencing therapy. (4) B12 deficiency Patient was found to have B12 deficiency and was been placed on daily B12 prior to hospital discharge. We will continue weekly IM B12 for at least 8 weeks withhis myeloma regimen. Today hemoglobin isimproved to 9.1 on Aranesp and weekly B12 [...] mg/kg subcu twice weekly, dexamethasone 40 mg weeklyfor each 21-day cycle as directed (cycle 1 day 1 03/12/2020). Goal of Treatment: Control - Time with Patient Total Time Spent with Patient: 45 min Coordination of Care & Counseling Time: Greater than 50% of time spent with patient was for coordination of care (as documented) and sinp-xf-dfhu counseling of patient and/or family. Dictated By: Brook Huddleston MD DD/ 7 Signed By: <Electronically signed by MD Brook Huddleston> 04/09/20 [address] [facility] Work Phone: [phone] Progress note Author Brook Huddleston [facility] April 12, 2020 9:26amNote Date/TimeAugust 2019 8:49amNorth [facility] [place] [address] Hem/Onc Follow Up Note - OP Signed with Addenda Patient: Patsy Mills MR#: [id number] : 1945 Acct:[id number] Age/Sex: 75 / M Type: REG RCR [...] has remarkably improved (>90% reduction past month). [place] light chains decreased from 12,000 to 42. [...] response. He received his first cycle of combi nation chemotherapy 03/12/2020. --Patient tolerated initial daratumumab infusion reasonably well with brief infusion reaction (dizziness and mild wheezing) that was treated with diphenhydramine, steroids, albuterol, and Demerol forrigors. He completed remaining infusion in an outpatient bed on the inpatient hart Thursday and we ant icipate further weekly daratumumab infusions as an outpatient. [...] kappa light chains, and elevated M spike. Wediscussed in detail the pathophysiology of myeloma but she felt very anxious and overwhelmed and I r eassured her that we will readdress this at further follow-up visits. 2. Patient had a metastatic bone survey showing no areas of lytic disease or pathologic fractures. We discussed CRAB criteria for multiple myeloma diagnosisand that he meets criteria of R renal and Aanemia, but not elevated calcium or bone disease (C and B). She specifically asked is stage of multiple myeloma andwe noted that he still will require beta-2 glycoprotein (ISS) but is most consistentwith stage III. We are still awaiting his chromosomal abnormalities by fluorescence in situ hybridization and will readdress at next follow-up visitwith his final bone marrow biopsy results (this study was only performed 03/08/2020). 3. She has been testing to see if there is cancer elsewhere. We discussed thatsince metastatic bonesurvey showed more lytic areas I do not [...] could be managed byhis primary physician Dr. Ochoa and he could be referred for diabetes [...] marijuana and would discuss this with his lawn service manager whetherthis would interfere with dialysis. We will also follow closely for cytopenias and reviewed infectious precautions. He has a sonfrom [place] who plans to visit on Thursday and [...] exercise given his recentdialysis and initiation of chemotherapy.I did not specifically address his diet but he may address this with our [facility] nutrition team. He will also receivechemotherapy class with our nurses in the infusion center. PRELIMINARY HISTORY (from initial consult 03/08/2020): This is a 75-year-old male who was transferred from [place] emergency room by [facility] due to critical potassium 8.7 with elevated creatinine 11.2 and BUN 82 on 03/04/2020. We do not have any recent blood work for comparison but he hadnormal creatinine in 2012. He was urgently treated for his hyperkalemia and dialysis was arranged emergently by nephrology team. He has now stabilized on dialysisand had extensive work-up for etiology of his acute renal failure with severe anemia felt to be dueto anemia of renal insufficiency. Iron studies returned normal with ferritin 160, but B12 low at 84and folate low normal at 5.2. He is [...] to be coordinated with nursing staffdue to [facility]. - Summary of Therapies [...] negative for fever or night sweats. No recentinfections. HEAD AND NECK: Positive for significant worsening [...] past month since starting dialysis and chemotherapy forlight chain nephropathy. GENITOURINARY: Negative for dysuria and hematuria. Patient now with improved urinary output, diagnosed in February 2020 with renal failure requiring dialysis. Prior nephrolithiasis previously followed byDr. Seals. ENDOCRINE: Negative for cold intolerance and heat intolerance. Positive for significant hyperglycemia with home blood sugars in the 200s to 300s range, seeing Dr. Ochoa later today. CENTRAL NERVOUS SYSTEM: Negative for gait disturbance and headache. No focal neurologic deficits orhistory of stroke. PSYCHIATRIC: Negative for anxiety or [...] Negative for environmental allergies and food allergies. [facility] - History Attestation statement: The [...] L, Hct 26.1 L, MCV 100.2, MCH 34.8,MCHC 34.7, RDW 18.6 H, Plt Count 134 L, MPV 8.6, Neut % (Auto) 65.3, Lymph % (Auto) 18.2, Randolph % (Auto) 13.2, Eos % (Auto) 3.0, Baso % (Auto) 0.3, Neut # (Auto) 3.0, Lymph # (Auto) 0.8 L, Randolph # (Auto) 0.6, Eos # (Auto) 0.1, Baso # (Auto) 0.0, Nucleated RBC % (auto) 0.3 04/02/20 13:55: Ur Random Albumin 38.7, U Random Total Protein 6.6, U Oxjgv-1-Gzjajvgs (%) 5.2, U Random p-0-Gorittuw % 16.3, U Random b-Globulin % 26.2, [...] % (Auto) 65.0, Lymph % (Auto) 18.1, Randolph % (Auto) 14.5, Eos % (Auto) 2.0, Baso % (Auto) 0.4, Neut # (Auto) 2.9, Lymph # (Auto) 0.8 L, Randolph # (Auto) 0.7, Eos # (Auto) 0.1, Baso # (Auto) 0.0, Nucleated RBC % (auto) 0.0 04/02/20 08:15: Serum Total Protein 6.8, Albumin (Send Out) 3.2, Globulin (PEP) 3.6, Albumin/Globulin (PEP) 0.9, Mzzls-3-Njmqtlkzq 0.3, Bsnyz-0-Bpxbmhfkk 1.1 H,Beta Globulins 0.8, Cwkl-8-Muuklbvkynflb 5.5 H, Gamma Globulins 1.4, M-Anselmo 1.2H, PEP Note , IgG 1563, IgA 36 L, IgM 47, Serum Immunofixation , Free [place] LC, Quant 42.2 H, Free Lambda LC, Quant 12.4, Free [place]/Lambda Ratio 3.40 H 04/02/20 08:15: Lactate Dehydrogenase [...] to be thrombus present in the left b asilicvein in the upper arm extending to the [...] kappa/lambda light chains) in 4 weeks with f/uvisit with me the following week to review results as well as evaluation with Dr. Hall for possible stem cell transplant. I also discussed diabetes management with Dr. Ochoa and possibly decreasingdialysis to twice per week with Dr. Rahman. [...] we may be able to reverse his renalfailure and potentially he may stop dialysis in the future (likely over several months). High-dose chemotherapy with autologous stem cell transplant is an option in somepatients, and Dr. Hall noted he would meet with Mr. Mills to determine if he is a candidate for high dose chemotherapy/stem celltransplant. I sent an emailto Dr. Hall who may discuss the case with [facility] hematology tumorboard given his [...] NPH insulin 30 units weekly and I willdiscuss management of his diabetes with Dr. Ochoa his primary physician for either initiating an insulin regimen or other hypoglycemics and following his diabetes closely. Patient alsohad remarked on some blurred vision and we will coordinate ophthalmology evaluation as well. Continue follow-up ofblood sugars with each week of dexamethasone therapy with daratumumab and Velcade. His only peripheral neuropathy complaints are in his third through fifth fingers of the left hand which he had priorto commencing therapy. (4) B12 deficiency Patient was found to have B12 deficiency and was been placed on daily B12 prior to hospital discharge. We will continue weekly IM B12 for at least 8 weeks withhis myeloma regimen. Today hemoglobin isimproved to 9.1 on Aranesp and weekly B12 [...] mg/kg subcu twice weekly, dexamethasone 40 mg weeklyfor each 21-day cycle as directed (cycle 1 day 1 03/12/2020). Goal of Treatment: Control - Time with Patient Total Time Spent with Patient: 45 min Coordination of Care & Counseling Time: Greater than 50% of time spent with patient was for coordination of care (as documented) and [id number] counseling of patient and/or family. Dictated By: Brook Huddleston MD DD/ [id number] Signed By: <Electronically signed by MD Brook Huddleston> 04/09/20 5431 [facility] Work Phone: [phone]) 195-739607-30-2020 Progress note Author Brook Huddleston [facility] March 14, 2020 10:13pmNote Date/TimeJuly 2019 3:52pmNorth [facility] [place] [address] Hem/Onc Follow Up Note - OP Signed Patient: Patsy Mills MR#: [id number] : 1945 Acct:[id number] Age/Sex: 75 / M Type: REG RCR [...] response. He received his first cycle of combi nation chemotherapy 03/12/2020. --Patient tolerated initial daratumumab infusion reasonably well with brief infusion reaction (dizziness and mild wheezing) that was treated with diphenhydramine, steroids, albuterol, and Demerol forrigors. He completed remaining infusion in an outpatient bed on the inpatient hart Thursday and we ant icipate further weekly daratumumab infusions as an outpatient. [...] kappa light chains, and elevated M spike. Wediscussed in detail the pathophysiology of myeloma but she felt very anxious and overwhelmed and I r eassured her that we will readdress this at further follow-up visits. 2. Patient had a metastatic bone survey showing no areas of lytic disease or pathologic fractures. We discussed CRAB criteria for multiple myeloma diagnosisand that he meets criteria of R renal and Aanemia, but not elevated calcium or bone disease (C and B). She specifically asked is stage of multiple myeloma andwe noted that he still will require beta-2 glycoprotein (ISS) but is most consistentwith stage III. We are still awaiting his chromosomal abnormalities by fluorescence in situ hybridization and will readdress at next follow-up visitwith his final bone marrow biopsy results (this study was only performed 03/08/2020). 3. She has been testing to see if there is cancer elsewhere. We discussed thatsince metastatic bonesurvey showed more lytic areas I do not [...] could be managed byhis primary physician Dr. Ochoa and he could be referred for diabetes [...] marijuana and would discuss this with his lawn service manager whetherthis would interfere with dialysis. We will also follow closely for cytopenias and reviewed infectious precautions. He has a [facility] who plans to visit on Thursday and [...] exercise given his recentdialysis and initiation of chemotherapy.I did not specifically address his diet but he may address this with our [facility] nutrition team. He will also receivechemotherapy class with our nurses in the infusion center. PRELIMINARY HISTORY (from initial consult 03/08/2020): This is a 75-year-old male who was transferred from [place] emergency room by [facility] due to critical potassium 8.7 with elevated creatinine 11.2 and BUN 82 on 03/04/2020. We do not have any recent blood work for comparison but he hadnormal creatinine in 2012. He was urgently treated for his hyperkalemia and dialysis was arranged emergently by nephrology team. He has now stabilized on dialysisand had extensive work-up for etiology of his acute renal failure with severe anemia felt to be dueto anemia of renal insufficiency. Iron studies returned normal with ferritin 160, but B12 low at 84and folate low normal at 5.2. He is [...] to be coordinated with nursing staffdue to [facility]. - Summary of Therapies [...] disturbance and headache. No focal neurologic deficits orhistory of stroke. PSYCHIATRIC: Negative for anxiety or [...] Negative for environmental allergies and food allergies. [facility] - History Attestation statement: The [...] ferritin 600.3 03/08/20 04:39: PHA Creatinine Clear [id number], Sodium 126 L, Potassium 4.2,Chloride 92 L, Carbon Dioxide 25.3, BUN 33 H, Creatinine 5.66 H D, Est GFR ( Amer) 12, Est GFR (Non-Af Amer) 10,Glucose 87, Calcium 8.1 L 03/08/20 04:39: WBC 6.4, Corrected WBC 6.4, RBC 2.17 L, Hgb 7.7 L, Hct 22.5 L, MCV 103.4 H, MCH 35.3 H, MCHC 34.1, RDW 19.3 H, Plt Count 206, MPV 7.4, Neut % (Auto) 68.2, Lymph % (Auto) 19.5, Randolph % (Auto) 9.3, Eos % (Auto) 2.6, Baso % (Auto) 0.4, Neut # (Auto) 4.4, Lymph # (Auto) 1.2, Randolph # (Auto) 0.6, Eos # (Auto) 0.2, [...] kappa, Glomerular Base Memb Ab 3, Free [place] LC, Quant 36963.9 H, Free Lambda LC, Quant11.9, Free [place]/Lambda Ratio 1063.02 H 03/05/2020: Serum protein electrophoresis [...] No sclerotic lesion is present. Multilevel spondylosis identified.RIGHT dialysis catheter is present. No fracture seen. No cortical destruction is present. RIGHT femoral line identified. LEFT acromioclavicular marginal spurring identified. Atherosclerosis noted. XR/XR bone survey IMPRESSION: No bony lytic lesions or bony destruction. Diffuse spondylosis. RIGHT knee and hip degenerative changes. LEFT acromioclavicular degenerative changes are present. Impression dictated by: Gary Hart M.D.03/09/2020 9:11 AM Date of Service: 03/12/20 [...] to be thrombus present in the left b asilic vein in the upper arm extending to [...] the patient the pathophysiology of multiple myeloma a ndassociated injury to kidneys, persistent anemia, bone disease, and potential hypercalcemia (we donot see hypercalcemia in this patient). He consented to inpatient bone marrow biopsy 03/08 which wasdiagnostic for multiple myeloma--70%plasma cells without amyloid deposition identified in small marrow specimen. Normal baseline skeletal survey. Patsy consented to begin first cycle Daratumumab, Velcade, and dexamethasone on03/12/2020--other than infusion reaction from first Daratumumab, improved with symptomatic therapy. I reviewed his case with Dr. Quique Hall of Malignant Hematology--I will consider adding Revlimid 25mg if no significantreduction of light chains. As per HPI, I [...] we may be able to reverse his renalfailure and potentially he may stop dialysis in the future (likely over several months). High-dose chemotherapy with autologous stem cell transplant is an option in somepatients, and Dr. Hall noted he would meet with Chay Gene to determine if he is a candidate for high dose chemotherapy/stem celltransplant. I will review his case and [facility] hematology tumor board once [...] arranging 1 unit RBC transfusion prior to dialysistomorrow. (4) Anemia of renal disease This will [...] mg/kg subcu twice weekly, dexamethasone 40 mg weeklyfor each 21-day cycle as directed (cycle 1 [...] for coordination of care (as documented) and [id number]-la-[id number] counseling of patient and/or family. Dictated By: Brook Huddleston MD DD/ [id number] Signed By: <Electronically signed by MD Brook Huddleston> 03/14/20 0301 [facility] Work Phone: [phone]) [phone] Progress note Author Brook Huddleston [facility] March 14, 2020 10:13pmNote Date/TimeJuly 2019 3:52pmNorth Central [facility] [place] [address] Hem/Onc Follow Up Note - OP Signed Patient: Patsy Mills MR#: [id number] : 1945 Acct:[id number] Age/Sex: 75 / M Type: REG RCR [...] response. He received his first cycle of combi nation chemotherapy 03/12/2020. --Patient tolerated initial daratumumab infusion reasonably well with brief infusion reaction (dizziness and mild wheezing) that was treated with diphenhydramine, steroids, albuterol, and Demerol forrigors. He completed remaining infusion in an outpatient bed on the inpatient hart Thursday and we ant icipate further weekly daratumumab infusions as an outpatient. [...] kappa light chains, and elevated M spike. Wediscussed in detail the pathophysiology of myeloma but she felt very anxious and overwhelmed and I r eassured her that we will readdress this at further follow-up visits. 2. Patient had a metastatic bone survey showing no areas of lytic disease or pathologic fractures. We discussed CRAB criteria for multiple myeloma diagnosisand that he meets criteria of R renal and Aanemia, but not elevated calcium or bone disease (C and B). She specifically asked is stage of multiple myeloma andwe noted that he still will require beta-2 glycoprotein (ISS) but is most consistentwith stage III. We are still awaiting his chromosomal abnormalities by fluorescence in situ hybridization and will readdress at next follow-up visitwith his final bone marrow biopsy results (this study was only performed 03/08/2020). 3. She has been testing to see if there is cancer elsewhere. We discussed thatsince metastatic bonesurvey showed more lytic areas I do not [...] could be managed byhis primary physician Dr. Ochoa and he could be referred for diabetes [...] marijuana and would discuss this with his lawn service manager whetherthis would interfere with dialysis. We will also follow closely for cytopenias and reviewed infectious precautions. [place] who plans to visit on Thursday and [...] exercise given his recentdialysis and initiation of chemotherapy.I did not specifically address his diet but he may address this with our [facility] nutrition team. He will also receivechemotherapy class with our nurses in the infusion center. PRELIMINARY HISTORY (from initial consult 03/08/2020): This is a 75-year-old male who was transferred from [place] emergency room by [facility] due to critical potassium 8.7 with elevated creatinine 11.2 and BUN 82 on 03/04/2020. We do not have any recent blood work for comparison but he hadnormal creatinine in 2011. He was urgently treated for his hyperkalemia and dialysis was arranged emergently by nephrology team. He has now stabilized on dialysisand had extensive work-up for etiology of his acute renal failure with severe anemia felt to be dueto anemia of renal insufficiency. Iron studies returned normal with ferritin 160, but B12 low at 84and folate low normal at 5.2. He is [...] to be coordinated with nursing staffdue to [facility] visitor restriction policy. - Summary of Therapies [...] disturbance and headache. No focal neurologic deficits orhistory of stroke. PSYCHIATRIC: Negative for anxiety or [...] Negative for environmental allergies and food allergies. [facility] - History Attestation statement: The [...] ferritin 600.3 03/08/20 04:39: PHA Creatinine Clear [id number], Sodium 126 L, Potassium 4.2,Chloride 92 L, Carbon Dioxide 25.3, BUN 33 H, Creatinine 5.66 H D, Est GFR ( Amer) 12, Est GFR (Non-Af Amer) 10,Glucose 87, Calcium 8.1 L 03/08/20 04:39: WBC 6.4, Corrected WBC 6.4, RBC 2.17 L, Hgb 7.7 L, Hct 22.5 L, MCV 103.4 H, MCH 35.3 H, MCHC 34.1, RDW 19.3 H, Plt Count 206, MPV 7.4, Neut % (Auto) 68.2, Lymph % (Auto) 19.5, Randolph % (Auto) 9.3, Eos % (Auto) 2.6, Baso % (Auto) 0.4, Neut # (Auto) 4.4, Lymph # (Auto) 1.2, Randolph # (Auto) 0.6, Eos # (Auto) 0.2, [...] kappa, Glomerular Base Memb Ab 3, Free [place] LC, Quant 63618.9 H, Free Lambda LC, Quant11.9, Free [place]/Lambda Ratio 1063.02 H 03/05/2020: Serum protein electrophoresis [...] No sclerotic lesion is present. Multilevel spondylosis identified.RIGHT dialysis catheter is present. No fracture seen. No cortical destruction is present. RIGHT femoral line identified. LEFT acromioclavicular marginal spurring identified. Atherosclerosis noted. XR/XR bone survey IMPRESSION: No bony lytic lesions or bony destruction. Diffuse spondylosis. RIGHT knee and hip degenerative changes. LEFT acromioclavicular degenerative changes are present. Impression dictated by: Gary Hart M.D.03/09/2020 9:11 AM Date of Service: 03/12/20 [...] to be thrombus present in the left b asilic vein in the upper arm extending to [...] the patient the pathophysiology of multiple myeloma a ndassociated injury to kidneys, persistent anemia, bone disease, and potential hypercalcemia (we donot see hypercalcemia in this patient). He consented to inpatient bone marrow biopsy 03/08 which wasdiagnostic for multiple myeloma--70%plasma cells without amyloid deposition identified in small marrow specimen. Normal baseline skeletal survey. Patsy consented to begin first cycle Daratumumab, Velcade, and dexamethasone on03/12/2020--other than infusion reaction from first Daratumumab, improved with symptomatic therapy. I reviewed his case with Dr. Quique Hall of Malignant Hematology--I will consider adding Revlimid 25mg if no significantreduction of light chains. As per HPI, I [...] we may be able to reverse his renalfailure and potentially he may stop dialysis in the future (likely over several months). High-dose chemotherapy with autologous stem cell transplant is an option in somepatients, and Dr. Hall noted he would meet with Mr. Mills to determine if he is a candidate for high dose chemotherapy/stem celltransplant. I will review his case and [facility] hematology tumor board once [...] arranging 1 unit RBC transfusion prior to dialysistomorrow. (4) Anemia of renal disease This will [...] mg/kg subcu twice weekly, dexamethasone 40 mg weeklyfor each 21-day cycle as directed (cycle 1 [...] for coordination of care (as documented) and [id number]-[id number] counseling of patient and/or family. Dictated By: Brook Huddleston MD DD/ [id number] Signed By: <Electronically signed by MD Brook Huddleston> 03/14/20 2400 [facility] Work Phone: Discharge summary Author Clarence Miller [facility] January 22, 2024 5:01pmNote Date/TimeJun2023 5:01pm[place] [address] Discharge Summary Signed Patient: Patsy Mills MR#: [id number] : 1945 Acct:[id number] Age/Sex: 78 / M Adm Date: 4 Loc: Room: [address] [place] [address]: Clarence Miller DO Copies to: MD Orquidea Ashton MD Michael R. Frings, DO Richard R Keller, MD~ Providers Date of Discharge: 01/22/24 Discharging Provider: Clarence Miller Primary Care Provider: Helen Ochoa Consults: 01/20/24 16:06 Consult to Nephrology Routine [...] of 3.07. Baseline creatinine usually holds near 1.9.He was hospitalized for complicated urinary tract infection. He was started on sepsis dosing of ceftriaxone given the complicated nature of his case and historyof septic infections previously. Clinically quite dehydrated and was started on intravenous fluids.Leukocytosis down trended andhe exhibited no fevers while hospitalized. Each day he stated his energy level and overall malaise was improving. Encourage p.o. intake. Admits to drinking minimal water r egularly. His serum creatinine improved minimally with IV hydration but consistently down trended asmall amount with dehydration. Fractional excretion of sodium [...] His serum creatinine continues to improve on IVfluids and it seems less acute injury is prolonged dehydration related acute tubular necrosis giventhe trajectory of improvement. I emphasized the importance [...] with his PCP, his regular urologist Dr. Issa and nephrology as an outpatient. Of note if urology is able to evaluate the patient prior to his discharge this afternoon and wishesto keep the patient for procedure his discharge [...] 25 mg PO DAILY Follow Up: Helen Ochoa MD [Primary Care Provider] - 01/26/24 9:45 am (Post hospital appointment. Please call to reschedule if needed.) Orquidea Issa MD [Active Staff] - (Please keep your [...] % (Auto) 72.2, Lymph % (Auto) 17.0, Randolph % (Auto) 7.2, Eos % (Auto) 3.3, Baso % (Auto) 0.3, Nucleat RBC Rel Count 0.1, Neut #(Auto) 5.8, Lymph # (Auto) 1.4, Randolph # (Auto) 0.6, Eos # (Auto) 0.3, Baso # (Auto) 0.0, PHA Creatinine Clear 26.98, Sodium 141, Potassium 4.1, Chloride 110 H, Carbon Dioxide 23.3, Anion Gap 11.8, BUN31 H, Creatinine 2.58 H, Est GFR (CKD-EPI) 24.703, Glucose 51 L, Calcium 8.9, Iron 59, TIBC 164 L, Iron Saturation 36.0, Transferrin 117 L, Ferritin 488.7 H, Vitamin B12 426, Folate 15.7 01/22/24 06:28: POC Glucose 60 L* 01/21/24 20:27: POC Glucose 130 Documented By: Clarence Miller DO 01/22/24 16 47 Signed By: <Electronically signed by Clarence Miller DO> 01/22/24 1701 [facility] Work Phone: Evaluation + Plan note No data available for this section [facility] evaluation + Plan note Future Appointments Appointment Date:04/01/2022 08:45:00 AM Scheduled Provider:Patsy Seals Jr., MD Location:[facility] Appointment Type:URO Office Visit Appointment Date:08/05/2022 08:45:00 AM Scheduled Provider:Patsy Seals Jr., MD Location:[facility] Appointment Type:URO Office Visit [facility] evaluation + Plan note Future Appointments Appointment Date:04/22/2022 10:30:00 AM Scheduled Provider:Patsy Seals Jr., MD Location:[facility] Appointment Type:URO Office Visit Appointment Date:08/05/2022 08:45:00 AM Scheduled Provider:Patsy Seals Jr., MD Location:[facility] Future App[facility]ments Appointment Date:04/28/2022 12:15:00 PM Scheduled Provider: Location:[facility] Appointment Type:Urology CALL PAT FT Appointment Date:05/05/2022 09:30:00 AM Scheduled Provider: Location:[facility] Appointment Type:Urology FT Appointment Date:08/05/2022 08:45:00 AM Scheduled Provider:Patsy Seals Jr., MD Location:[facility] Appointment Type:URO Office Visit [facility] Evaluation + Plan note Future Appointments Appointment Date:04/28/2022 12:15:00 PM Scheduled Provider: Location:[facility] Appointment Type:Urology CALL PAT FT Appointment Date:05/05/2022 09:30:00 AM Scheduled Provider: Location:[facility] Appointment Type:Urology FT Appointment Date:08/05/2022 08:45:00 AM Scheduled Provider:Patsy Seals Jr., MD Location:[facility] Appointment Type:URO Office Visit Diagnostic Tests Pending * Urine Culture [facility]18[facility] Future Appointments Appointment Date:05/06/2022 01:00:00 PM Scheduled Provider: Location:[facility] Appointment Type:URO Nurse Visit Appointment Date:06/04/2022 10:00:00 AM Scheduled Provider:Orquidea Issa MD Location:[facility] Appointment Type:URO Office Visit Appointment Date:08/05/2022 08:45:00 AM Scheduled Provider:Patsy Seals Jr., MD Location:[facility] Appointment Type:URO [facility] Future Appointments Appointment Date:06/04/2022 10:00:00 AM Scheduled Provider:Orquidea Issa MD Location:[facility] Appointment Type:URO Office Visit Appointment Date:08/05/2022 08:45:00 AM Scheduled Provider:Patsy Seals Jr., MD Location:[facility] Appointment Type:URO Office Visit [facility] Evaluation + Plan note Future Appointments Appointment Date:08/06/2022 10:00:00 AM Scheduled Provider:Orquidea Issa MD Location:[facility] Appointment Type:URO Office Visit Diagnostic Tests Pending * Urine Culture [facility]04[facility] Future Appointments Appointment Date:08/06/2022 10:00:00 AM Scheduled Provider:Orquidea Issa MD Location:[facility] Appointment Type:URO Office Visit [facility] evaluation + Plan note Future Appointments Appointment Date:07/04/2022 01:00:00 PM Scheduled Provider:Orquidea Issa MD Location:[facility] Appointment Type:URO Office Visit Appointment Date:08/06/2022 10:00:00 AM Scheduled Provider:Orquidea Issa MD Location:[facility] Appointment Type:URO Office Visit [facility] Evaluation + Plan note Future Appointments Appointment Date:07/07/2022 10:15:00 AM Scheduled Provider: Location:[facility] Appointment Type:Urology FT Appointment Date:07/07/2022 11:45:00 AM Scheduled Provider: Location:[facility] Appointment Type:Urology CALL PAT FT Appointment Date:08/06/2022 10:00:00 AM Scheduled Provider:Orquidea Issa MD Location:[facility] Appointment Type:URO Office Visit Diagnostic Tests Pending * UTI ([facility]) 07/04/22 [facility] Evaluation + Plan note Future Appointments Appointment Date:08/25/2022 11:00:00 AM Scheduled Provider: Location:[facility] Appointment Type:URO Nurse Visit [facility] evaluation + Plan note Future Appointments Appointment Date:08/25/2022 11:00:00 AM Scheduled Provider: Location:[facility] Appointment Type:URO Nurse Visit Diagnostic Tests Pending * Urine Culture [facility] App[facility]ments Appointment Date:09/18/2022 09:15:00 AM Scheduled Provider:Orquidea Issa MD Location:[facility] Appointment Type:URO Office Visit [facility] evaluation + Plan note Future Appointments Appointment Date:03/18/2023 10:45:00 AM Scheduled Provider:Orquidea Issa MD Location:[facility] Appointment Type:URO Office Visit [facility] Evaluation + Plan note Future Appointments Appointment Date:10/17/2022 08:45:00 AM Scheduled Provider: Location:[facility] Appointment Type:Urology CALL PAT FT Appointment Date:10/20/2022 08:00:00 AM Scheduled Provider: Location:[facility] Appointment Type:Urology FT Appointment Date:03/18/2023 10:45:00 AM Scheduled Provider:Orquidea [facility] Office Visit [facility] Evaluation + Plan note Future Appointments Appointment Date:11/21/2022 09:45:00 AM Scheduled Provider:Orquidea Issa MD Location:[facility] Appointment Type:URO Office Visit Appointment Date:03/18/2023 10:45:00 AM Scheduled Provider:Orquidea Issa MD Location:[facility] Appointment Type:URO Office Visit Diagnostic Tests Pending * Basic Metabolic Panel 11/03/22 [facility] Evaluation + Plan note Future Appointments Appointment Date:01/16/2023 10:00:00 AM Scheduled Provider: Location:[facility] Appointment Type:URO Nurse Visit Appointment Date:03/18/2023 10:45:00 AM Scheduled Provider:Orquidea Issa MD Location:[facility] Appointment Type:URO Office Visit [facility] Evaluation + Plan note Future Appointments Appointment Date:02/13/2023 09:00:00 AM Scheduled Provider:Orquidea Issa MD Location:[facility] Appointment Type:URO Office Visit Appointment Date:03/18/2023 10:45:00 AM Scheduled Provider:Orquidea Issa MD Location:[facility] Appointment Type:URO Office Visit [facility] Evaluation + Plan note Future Appointments Appointment Date:07/22/2023 09:15:00 AM Scheduled Provider:Orquidea Issa MD Location:[facility] Appointment Type:URO Office Visit Diagnostic Tests Pending * [facility] App[facility]ments Appointment Date:08/11/2023 10:30:00 AM Scheduled Provider: Location:[facility] [place] Appointment Type:URO Nurse Visit [facility] evaluation + Plan note Future Appointments Appointment Date:08/31/2023 11:30:00 AM Scheduled Provider: Location:[facility] Appointment Type:URO Nurse Visit [facility] Evaluation + Plan note Future Appointments Appointment Date:08/31/2023 11:30:00 AM Scheduled Provider: Location:[facility] Appointment Type:URO Nurse Visit Diagnostic Tests Pending * [facility] Future Appointments Appointment Date:10/12/2023 11:00:00 AM Scheduled Provider: Location:[facility] Appointment Type:URO Nurse Visit [facility] evaluation + Plan note Future Appointments Appointment Date:11/25/2023 01:00:00 PM Scheduled Provider: Location:[facility] [place] Appointment Type:URO Nurse Visit Appointment Date:01/28/2024 10:15:00 AM Scheduled Provider:Orquidea Issa MD Location:[facility] [place] Appointment Type:URO Office Visit [facility] Evaluation + Plan note Future Appointments Appointment Date:12/18/2023 11:00:00 AM Scheduled Provider: [facility] App[facility] Type:URO Nurse Visit Appointment Date:01/28/2024 10:15:00 AM Scheduled Provider:Orquidea Issa MD Location:[facility] [place] Appointment Type:URO Office Visit [facility] Evaluation + Plan note Future Appointments Appointment Date:12/18/2023 11:00:00 AM Scheduled Provider: Location:[facility] [place] Appointment Type:URO Nurse Visit Appointment Date:01/28/2024 10:15:00 AM Scheduled Provider:Orquidea Issa MD Location:[facility] Appointment Type:URO Office Visit Diagnostic Tests Pending * [facility] Future App[facility]ments Appointment Date:01/08/2024 11:00:00 AM Scheduled Provider: Location:[facility] Appointment Type:URO Nurse Visit Appointment Date:01/28/2024 10:15:00 AM Scheduled Provider:Orquidea Issa MD Location:[facility] Appointment Type:URO Office Visit [facility] evaluation + Plan note Future Appointments Appointment Date:01/28/2024 10:15:00 AM Scheduled Provider:Orquidea Issa MD Location:[facility] Appointment Type:URO Office Visit [facility] evaluation + Plan note Future Appointments Appointment Date:01/28/2024 10:15:00 AM Scheduled Provider:Orquidea Issa MD Location:[facility] Appointment Type:URO Office Visit Diagnostic Tests Pending * [facility]rine [facility] Future App[facility]ments Appointment Date:01/28/2024 10:15:00 AM Scheduled Provider:Orquidea Issa MD Location:[facility] Appointment Type:URO Office Visit Diagnostic Tests Pending * Urine [facility] Future Appointments Appointment Date:03/15/2024 02:30:00 PM Scheduled Provider:CARLEY Damian APRN Makayla X Location:[facility] Appointment Type:URO Office Visit [facility] Evaluation + Plan note Future Appointments Appointment Date:04/05/2024 03:30:00 PM Scheduled Provider:CARLEY Damian APRN Makayla X Location:[facility] Appointment Type:URO Office Visit [facility] evaluation + Plan note Future Appointments Appointment Date:04/05/2024 03:30:00 PM Scheduled Provider:CARLEY Damian APRN Makayla X Location:[facility] Appointment Type:URO Office Visit Diagnostic Tests Pending * Urine Culture 03/15/24 [facility] Evaluation + Plan note Future Appointments Appointment Date:05/17/2024 02:30:00 PM Scheduled Provider:CARLEY Damian APRN, [place]la X Location:[facility] Appointment Type:URO Office Visit [facility] evaluation + Plan note Future Appointments Appointment Date:06/10/2024 11:30:00 AM Scheduled Provider:Orquidea Issa MD Location:[facility] Appointment Type:URO Office Visit [facility] evaluation + Plan note Future Appointments Appointment Date:06/21/2024 12:30:00 PM Scheduled Provider:CARLEY Damian APRN, [place]la X Location:[facility] Appointment Type:URO Office Visit [facility] Evaluation + Plan note Future Appointments Appointment Date:07/12/2024 09:00:00 AM Scheduled Provider:CARLEY Damian APRN, [place]la X Location:[facility] Appointment Type:URO Office Visit [facility] evaluation + Plan note Future Appointments Appointment Date:08/09/2024 11:00:00 AM Scheduled Provider:CARLEY Damian APRN Makayla X Location:[facility] Appointment Type:URO Office Visit [facility] evaluation + Plan note Future Appointments Appointment Date:08/16/2024 11:20:00 AM Scheduled Provider:CARLEY Damian APRN, [place]la X Location:[facility] Appointment Type:URO Office Visit Appointment Date:09/14/2024 10:45:00 AM Scheduled Provider:Orquidea Issa MD Location:[facility] Appointment Type:URO Office Visit [facility] evaluation + Plan note Future Appointments Appointment Date:09/08/2024 03:10:00 PM Scheduled Provider:CARLEY Damian APRN, [place] X Location:[facility] Appointment Type:URO Complex Office Visit Appointment Date:09/14/2024 10:45:00 AM Scheduled Provider:Orquidea Issa MD Location:[facility] Appointment Type:URO Office Visit Diagnostic Tests Pending * Urine Culture 08/16/24 [facility] Evaluation + Plan note Future Appointments Appointment Date:09/08/2024 03:10:00 PM Scheduled Provider:CARLEY Damian APRN, [place] X Location:[facility] Appointment Type:URO Complex Office Visit Appointment Date:09/14/2024 10:45:00 AM Scheduled Provider:Orquidea Issa MD Location:[facility] Appointment Type:URO Office Visit [facility] evaluation + Plan note Future Appointments Appointment Date:09/08/2024 03:10:00 PM Scheduled Provider:CARLEY Damian APRN, [place] X Location:[facility] Appointment Type:URO Complex Office Visit [facility] evaluation + Plan note Future Appointments Appointment Date:09/27/2024 12:50:00 PM Scheduled Provider:CARLEY Damian APRN, [place] X Location:[facility] Appointment Type:URO Office Visit [facility] Evaluation + Plan note Future Appointments Appointment Date:09/27/2024 12:50:00 PM Scheduled Provider:Orzech [employer]PA[employer]ER, DERMATOLOGY NURSE-C, Makayla X Location:[facility] Appointment Type:URO Office Visit Diagnostic Tests Pending * Urine Culture 09/08/24 [facility] evaluation + Plan note Future Appointments Appointment Date:10/21/2024 02:30:00 PM Scheduled Provider:Pratima Reno PA-C Location:[facility] Appointment Type:URO Office Visit [facility] Evaluation + Plan note Future Appointments Appointment Date:11/30/2024 12:30:00 PM Scheduled Provider:Pratima Reno PA-C Location:[facility] Appointment Type:URO Office Visit Diagnostic Tests Pending * Urine Culture 11/07/24 [facility] evaluation + Plan note Future Appointments Appointment Date:01/11/2025 11:00:00 AM Scheduled Provider:Pratima Reno PA-C Location:[facility] Appointment Type:URO Office Visit Appointment Date:02/23/2025 01:00:00 PM Scheduled Provider:Orquidea Issa MD Location:[facility] Appointment Type:URO Office Visit Diagnostic Tests Pending * Urine Culture 12/21/24 [facility] Evaluation + Plan note Future Appointments Appointment Date:02/01/2025 12:30:00 PM Scheduled Provider:Pratima Reno PA-C Location:[facility] Appointment Type:URO Office Visit Appointment Date:02/23/2025 01:00:00 PM Scheduled Provider:Orquidea Issa MD Location:[facility] Appointment Type:URO Office Visit [facility] evaluation + Plan note Future Appointments Appointment Date:02/01/2025 12:30:00 PM Scheduled Provider:Pratima Reno PA-C Location:[facility] Appointment Type:URO Office Visit Appointment Date:02/23/2025 01:00:00 PM Scheduled Provider:Orquidea Issa MD Location:[facility] Appointment Type:URO Office Visit Diagnostic Tests Pending * Urine Culture 01/11/25 [facility] Evaluation + Plan note Future Appointments Appointment Date:02/22/2025 12:30:00 PM Scheduled Provider:Pratima Reno PA-C Location:[facility] Appointment Type:URO Office Visit Appointment Date:02/23/2025 01:00:00 PM Scheduled Provider:Orquidea Issa MD Location:[facility] Appointment Type:URO Office Visit [facility] evaluation + Plan note Future Appointments Appointment Date:02/23/2025 01:00:00 PM Scheduled Provider:Orquidea Issa MD Location:[facility] Appointment Type:URO Office Visit Appointment Date:03/15/2025 11:00:00 AM Scheduled Provider:Pratima Reno PA-C Location:[facility] Appointment Type:URO Office Visit [facility] evaluation + Plan note Future Appointments Appointment Date:03/03/2025 03:30:00 PM Scheduled Provider: Location:[facility] Appointment Type:Surgical PAT FT Appointment Date:03/07/2025 12:45:00 PM Scheduled Provider: Location:[facility] Appointment Type:Surgery FT Appointment Date:03/15/2025 11:00:00 AM Scheduled Provider:Pratima Reno PA-C Location:[facility] Appointment Type:URO Office Visit [facility] Evaluation + Plan note Future Appointments Appointment Date:04/25/2025 01:45:00 PM Scheduled Provider:Orquidea Issa MD Location:[facility] Appointment Type:URO Office Visit Diagnostic Tests Pending * Basic Metabolic Panel 03/27/25 [facility] Evaluation + Plan note Future Appointments Appointment Date:04/25/2025 01:45:00 PM Scheduled Provider:Orquidea Issa MD Location:[facility] Appointment Type:URO Office Visit [facility] Evaluation + Plan note Future Appointments Appointment Date:05/11/2025 12:00:00 PM Scheduled Provider: Location:[facility] Appointment Type:Surgery CALL PAT FT Appointment Date:05/16/2025 11:00:00 AM Scheduled Provider: Location:[facility] Appointment Type:Surgery FT [facility] Evaluation note* Diagnosis Onset Date Resolution Status Anemia of renal disease [id number] deficiencychronicChemotherapy-induced peripheral neuropathychronic Encounter for chemotherapy managementchronicHistory of hemodialysischronicIron deficiency anemiachronicLight chain nephropathy due to multiple myelomachronic Rash and nonspecific skin eruptionchronicSteroid-induced diabetes mellitus chronicSuperficial thrombophlebitis of left upper extremitychronicAcute renal failure on dialysisresolved [facility] Work Phone: Evaluation note* Diagnosis Prostate cancer (HCC)- Primary Malignant neoplasm of prostate Acquired ureteral stricture Neurogenic bladder Neurogenic bladder, NOS Benign prostatic hyperplasia with urinary obstruction [facility] Pre-op evaluation- Primary Preoperative [...] Acquired ureteral stricture [facility] Diagnosis Onset Date Resolution Status Anemia of renal disease [id number] deficiencychronicChemotherapy-induced peripheral neuropathychronic Encounter for chemotherapy managementchronicEncounter for coordination of complex carechronicHistory of anemia due to vitamin B12 deficiencychronicHistory of hemodialysischronicIron deficiency anemiachronicLight chain nephropathy due to multiple myelomachronicRash and nonspecific skin eruptionchronicSteroid- induced diabetes mellituschronicSuperficial thrombophlebitis of left upper extremitychronicUrinary incontinencechronicAcute renal failure on dialysis resolved [facility] Work Phone: Evaluation noteNo assessment information available [facility] Work Phone: Evaluation note* Diagnosis Onset Date Resolution Status Anemia of renal disease [id number] deficiencychronicChemotherapy-induced peripheral neuropathychronic Encounter for chemotherapy managementchronicEncounter for coordination of complex carechronicHistory of anemia due to vitamin B12 deficiencychronicHistory of hemodialysischronicIron deficiency anemiachronicLight chain nephropathy due to multiple myelomachronicRash and nonspecific skin eruptionchronicSteroid- induced diabetes mellituschronicSuperficial thrombophlebitis of left upper extremitychronicUrinary incontinencechronicAcute renal failure on dialysis resolvedChronic suprapubic catheteracuteAnemia of renal qzqatffujjnmsuB78 deficiencychronicEncounter for coordination of complex carechronicHistory of hemodialysischronicLight chain nephropathy due to multiple myelomachronic Steroid-induced diabetes mellituschronic [facility] Work Phone: Evaluation note* Diagnosis Onset Date Resolution Status Chronic suprapubic catheter acuteAnemia of renal [id number] deficiencychronicEncounter for coordination of complex carechronicHistory of hemodialysischronicLight chain nephropathy due to multiple myelomachronicSteroid-induced diabetes mellitus chronicAnemia of chronic renal failure, stage 4 (severe)acuteDiabetes mellitus type 2 in pporuojxqgjqcOpitxvofpbqjizf[id number] acuteHypophosphatemiaacuteStage 3b chronic kidney disease (CKD)acuteLight chain nephropathy due to multiple myelomachronicAnemia of renal wczeutbtgznxsxX24 deficiencychronicChemotherapy-induced peripheral neuropathychronicEncounter for chemotherapy managementchronicEncounter for coordination of complex carechronic History of anemia due to vitamin B12 deficiencychronicHistory of hemodialysis chronicIron deficiency anemiachronicLight chain nephropathy due to multiple myelomachronicRash and nonspecific skin eruptionchronicSteroid-induced diabetes mellituschronicSuperficial thrombophlebitis of left upper extremitychronic Urinary incontinencechronicAcute renal failure on dialysisresolved [facility] Work Phone: Evaluation note* Diagnosis Onset Date Resolution Status Anemia of chronic renal failure, stage 4 (severe) acuteDiabetes 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acuteHydronephrosisacuteHyperkalemia [id number]cu 3b chronic kidney disease (CKD)acuteLight chain nephropathy due to multiple myelomachronicAnemia of renal avhqhjqkelskuhS37 deficiencychronicChemotherapy-induced peripheral neuropathy chronicEncounter for chemotherapy managementchronicEncounter for coordination of complex carechronicHistory of anemia due to vitamin B12 deficiencychronic History of hemodialysischronicIron deficiency anemiachronicLight chain nephropathy due to multiple myelomachronicRash and nonspecific skin eruption chronicSteroid-induced diabetes mellituschronicSuperficial thrombophlebitis of left upper extremitychronicUrinary incontinencechronicAcute renal failure on dialysisresolvedAKI (acute kidney injury)acuteUTI (urinary tract infection)[facility] Work Phone: Evaluation note* Diagnosis Onset Date Resolution Status Anemia of chronic renal failure, stage 4 (severe) acuteDiabetes 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acuteHydronephrosisacuteHyperkalemia [id number]ud 3b chronic kidney disease (CKD)acuteLight chain nephropathy due to multiple myelomachronicAnemia of renal axucjojxclwrdrC53 deficiencychronicChemotherapy-induced peripheral neuropathy chronicEncounter for chemotherapy managementchronicEncounter for coordination of complex carechronicHistory of anemia due to vitamin B12 deficiencychronic History of hemodialysischronicIron deficiency anemiachronicLight chain nephropathy due to multiple myelomachronicRash and nonspecific skin eruption chronicSteroid-induced diabetes mellituschronicSuperficial thrombophlebitis of left upper extremitychronicUrinary incontinencechronicAcute renal failure on dialysisresolvedAKI (acute kidney injury)acuteChronic suprapubic catheteracute Complicated urinary tract infectionacute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HydronephrosisacuteStage 3b chronic kidney disease (CKD)acuteUTI (urinary tract infection)[facility] Work Phone: Evaluation note* Diagnosis Onset Date Resolution Status Anemia of renal disease [id number] deficiencychronicChemotherapy-induced peripheral neuropathychronic Encounter for chemotherapy managementchronicEncounter for coordination of complex carechronicHistory of anemia due to vitamin B12 deficiencychronicHistory of hemodialysischronicIron deficiency anemiachronicLight chain nephropathy due to multiple myelomachronicRash and nonspecific skin eruptionchronicSteroid- induced diabetes mellituschronicSuperficial thrombophlebitis of left upper extremitychronicUrinary incontinencechronicAcute renal failure on dialysis resolvedAKI (acute kidney injury)acuteChronic suprapubic catheteracute Complicated urinary tract infectionacute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Stage 3b chronic kidney disease (CKD)acuteChronic suprapubic catheteracute Anemia of renal jbrnbzhwlphcriH18 deficiencychronicEncounter for coordination of complex carechronicHistory of hemodialysischronicLight chain nephropathy due to multiple myelomachronicSteroid-induced diabetes mellituschronic [facility] Work Phone: Evaluation note* Diagnosis Onset Date Resolution Status RINA (acute kidney injury) acuteChronic suprapubic catheteracuteComplicated urinary tract infectionacute Diabetes 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acuteStage 3b chronic kidney disease (CKD) acuteAnemia of chronic renal failure, stage 4 (severe)acuteChronic suprapubic catheteracuteAnemia of renal amluywgutfuhpdH09 deficiencychronicEncounter for coordination of complex carechronicHistory of hemodialysischronicLight chain nephropathy due to multiple myelomachronicSteroid-induced diabetes mellitus chronicAnemia of renal kawkuuaonjmhwlS85 deficiencychronicChemotherapy-induced peripheral neuropathychronicEncounter for chemotherapy managementchronic Encounter for coordination of complex carechronicHistory of anemia due to vitamin B12 deficiencychronicHistory of hemodialysischronicIron deficiency anemiachronicLight chain nephropathy due to multiple myelomachronicRash and nonspecific skin eruptionchronicSteroid-induced diabetes mellituschronic Superficial thrombophlebitis of left upper extremitychronicUrinary incontinence chronicAcute renal failure on dialysisresolved [facility] Work Phone: Evaluation note* Diagnosis Onset Date Resolution Status RINA (acute kidney injury) acuteChronic suprapubic catheteracuteComplicated urinary tract infectionacute Diabetes 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acuteStage 3b chronic kidney disease (CKD) acuteAnemia of chronic renal failure, stage 4 (severe)acuteChronic suprapubic catheteracuteAnemia of renal ufoftwsbwljhrxL78 deficiencychronicEncounter for coordination of complex carechronicHistory of hemodialysischronicLight chain nephropathy due to multiple myelomachronicSteroid-induced diabetes mellitus chronicAnemia of renal nlznrcdubewtubN52 deficiencychronicChemotherapy-induced peripheral neuropathychronicEncounter for chemotherapy managementchronic Encounter for coordination of complex carechronicHistory of anemia due to vitamin B12 deficiencychronicHistory of hemodialysischronicIron deficiency anemiachronicLight chain nephropathy due to multiple myelomachronicRash and nonspecific skin eruptionchronicSteroid-induced diabetes mellituschronic Superficial thrombophlebitis of left upper extremitychronicUrinary incontinence chronicAcute renal failure on dialysisresolvedAnemia of chronic renal failure, stage 4 (severe)acuteDiabetes 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acuteHyperkalemiaacute [id number]kb 3b chronic kidney disease (CKD) acuteLight chain nephropathy due to multiple myelomachronic [facility] Work Phone: Evaluation note* Diagnosis Onset Date Resolution Status Anemia of chronic renal failure, stage 4 (severe) acuteDiabetes mellitus type 2 in ufsi[id number] acuteHypophosphatemiaacuteStage 3b chronic kidney disease (CKD)acuteLight chain nephropathy due to multiple myelomachronicAnemia of renal bogciovetyyuzaY21 deficiencychronicChemotherapy-induced peripheral neuropathychronicEncounter for chemotherapy managementchronicEncounter for coordination of complex carechronic History of anemia due to vitamin B12 deficiencychronicHistory of hemodialysis chronicIron deficiency anemiachronicLight chain nephropathy due to multiple myelomachronicRash and nonspecific skin eruptionchronicSteroid-induced diabetes mellituschronicSuperficial thrombophlebitis of left upper extremitychronic Urinary incontinencechronicAcute renal failure on dialysisresolvedAnemia of chronic renal failure, stage 4 (severe)acuteChronic suprapubic catheteracute Anemia of renal loafsdljukucidK78 deficiencychronicEncounter for coordination of complex carechronicHistory of hemodialysischronicLight chain nephropathy due to multiple myelomachronicSteroid-induced diabetes mellituschronic [facility] Work Phone: Evaluation note* Diagnosis Onset Date Resolution Status Anemia of chronic renal failure, stage 4 (severe) acuteDiabetes mellitus type 2 in ellvmg[id number] acuteHypophosphatemiaacuteStage 3b chronic kidney disease (CKD)acuteLight chain nephropathy due to multiple myelomachronicAnemia of renal uhsnoveuhzwdlgR95 deficiencychronicChemotherapy-induced peripheral neuropathychronicEncounter for chemotherapy managementchronicEncounter for coordination of complex carechronic History of anemia due to vitamin B12 deficiencychronicHistory of hemodialysis chronicIron deficiency anemiachronicLight chain nephropathy due to multiple myelomachronicRash and nonspecific skin eruptionchronicSteroid-induced diabetes mellituschronicSuperficial thrombophlebitis of left upper extremitychronic Urinary incontinencechronicAcute renal failure on dialysisresolvedAnemia of chronic renal failure, stage 4 (severe)acuteChronic suprapubic catheteracute Anemia of renal pzvfsxeggwrvjoE79 deficiencychronicEncounter for coordination of complex carechronicHistory of hemodialysischronicLight chain nephropathy due to multiple myelomachronicSteroid-induced diabetes mellituschronicAcute kidney injury superimposed on CKDacuteHydronephrosis, leftacuteHyperkalemiaacute [facility] Work Phone: Evaluation note* Diagnosis Onset Date Resolution Status Anemia of chronic renal failure, stage 4 (severe) acuteDiabetes mellitus type 2 in spb[id number] acuteHypophosphatemiaacuteStage 3b chronic kidney disease (CKD)acuteLight chain nephropathy due to multiple myelomachronicAnemia of renal hvucpcgkinzidyO22 deficiencychronicChemotherapy-induced peripheral neuropathychronicEncounter for chemotherapy managementchronicEncounter for coordination of complex carechronic History of anemia due to vitamin B12 deficiencychronicHistory of hemodialysis chronicIron deficiency anemiachronicLight chain nephropathy due to multiple myelomachronicRash and nonspecific skin eruptionchronicSteroid-induced diabetes mellituschronicSuperficial thrombophlebitis of left upper extremitychronic Urinary incontinencechronicAcute renal failure on dialysisresolvedAnemia of chronic renal failure, stage 4 (severe)acuteChronic suprapubic catheteracute Anemia of renal yfnfojxbxifchaY20 deficiencychronicEncounter for coordination of complex carechronicHistory of hemodialysischronicLight chain nephropathy due to multiple myelomachronicSteroid-induced diabetes mellituschronicAcute kidney injury superimposed on CKDacuteAKI (acute kidney injury)acuteHydronephrosis, leftacuteHyperkalemiaacute [facility] Work Phone: Evaluation note* Diagnosis Onset Date Resolution Status Anemia of chronic renal failure, stage 4 (severe) acuteDiabetes mellitus type 2 in luaf[id number] acuteHypophosphatemiaacuteLight chain nephropathy due to multiple myelomachronic Anemia of renal lzpeutyifuehcyS15 deficiencychronicChemotherapy-induced peripheral neuropathychronicEncounter for chemotherapy managementchronic Encounter for coordination of complex carechronicHistory of anemia due to vitamin B12 deficiencychronicHistory of hemodialysischronicIron deficiency anemiachronicLight chain nephropathy due to multiple myelomachronicRash and nonspecific skin eruptionchronicSteroid-induced diabetes mellituschronic Superficial thrombophlebitis of left upper extremitychronicUrinary incontinence chronicAcute renal failure on dialysisresolvedAcute kidney injury superimposed on CKDacuteAnemia of chronic renal failure, stage 4 (severe)acuteChronic suprapubic catheteracuteHyperkalemiaacuteAnemia of renal lafuujzfrhmmheH61 deficiencychronicEncounter for coordination of complex carechronicHistory of hemodialysischronicLight chain nephropathy due to multiple myelomachronic Steroid-induced diabetes mellituschronicAcute kidney injury superimposed on CKD acuteAKI (acute kidney injury)acuteChronic suprapubic catheteracuteCKD (chronic kidney disease) stage 4, GFR 15-29 ml/minacuteHydronephrosis, leftacute [id number] bladderacuteType 2 diabetes mellitus with diabetic chronic kidney diseaseacuteAnemia of renal diseasechronic [facility] Work Phone: Evaluation note* Diagnosis Onset Date Resolution Status B12 deficiency chronicChemotherapy-induced peripheral neuropathychronicEncounter for chemotherapy managementchronicEncounter for coordination of complex carechronic History of anemia due to vitamin B12 deficiencychronicHistory of hemodialysis chronicIron deficiency anemiachronicLight chain nephropathy due to multiple myelomachronicRash and nonspecific skin eruptionchronicSteroid-induced diabetes mellituschronicSuperficial thrombophlebitis of left upper extremitychronic Urinary incontinencechronicAcute renal failure on dialysisresolvedAnemia of chronic renal failure, stage 4 (severe)jyvscC11 deficiencychronicEncounter for coordination of complex carechronicHistory of hemodialysischronicLight chain nephropathy due to multiple myelomachronicSteroid-induced diabetes mellitus [facility] Work Phone: Evaluation note* Diagnosis Pre-op evaluation- [...] kinking of ureter documented in this [facility] Author Mayda Matthews [facility] June 02, 2024 6:36pmNote Date/TimeOct2023 6:12pm[place] [address] Hospitalist H&P Signed Patient: Patsy Mills MR#: [id number] : 1945 Acct:[id number] Age/Sex: 79 / M Adm Date: 4 Loc: Room: [address] [place] [address] Type: ADM IN Attending Dr: Mayda Matthews [...] exchange done by urology as outpatient Dr. Issa yesterday. Patient tolerated the procedure well with no immediate complications. He does have suprapubic catheter at baseline. Denies any issueswith drainage from catheter. Denies fever, chills, nausea, [...] BUN 48 and creatinine 3.47 which has pro gressed from before. Afebrile here, no leukocytosis, hemoglobin appears stable. Patient does reportsome hematuria postprocedure which she thought was normal since he gets that after interventions. He does report there was blood clots coming out which has been cleared according to him. Hemodynamically stable at this time. Patient was given IV fluids in the ER as well as hyperkalemia cocktail withinsulin/dextrose, Lokelma, calcium gluconate. Decision was made toadmit him for further evaluation and management. Review of Systems Review of Systems Review of systems: 10 systems are reviewed and are negative except as mentioned elsewhere in the documentation [facility] Medical History Suprapubic catheter BPH (benign prostatic [...] pen (Lantus Solostar U-100 Insulin) 35 unit subcutQHS 03/08/24 [History Confirmed 06/02/24] losartan 25 mg [...] setting as: INPATIENT because of an expectation ofan over 2 midnight stay. 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 Medical HistoryAPNEAMedical HistoryARTHRITISMedical HistoryDIABETES MELLITUS TYPE 2Medical HistoryHYPERLIPIDEMIAMedical HistoryHYPERTENSIONMedical History KIDNEY STONESMedical HistoryMultiple myelomaMedical HistoryUTI, SEPSIS, YEAST INFECTIONSurgical HistorySKIN LESIONSSurgical HistoryTHROAT SURGERY FOR APNEA Surgical HistoryBONE MARROW AOPHJVYNNP58/2020Hospitalization HistoryACUTE RENAL [id number]/04/2020Hospitalization HistoryKIDNEY STONESHospitalization History Hyperkalemia02/2020Hospitalization HistorySTEM CELL TRANSPLANT, 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 Hospitalization HistoryUTI1Hospitalization HistoryELEVATED CREATININE AND POTASSIUM09/18/2021 [facility] Other History general Narrative - Reported* Type Description Date Medical History 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 Medical HistoryAPNEAMedical HistoryARTHRITISMedical HistoryDIABETES MELLITUS TYPE 2Medical HistoryHYPERLIPIDEMIAMedical HistoryHYPERTENSIONMedical History KIDNEY STONESMedical HistoryMultiple myelomaMedical HistoryUTI, SEPSIS, YEAST INFECTIONSurgical HistorySKIN LESIONSSurgical HistoryTHROAT SURGERY FOR APNEA Surgical HistoryBONE MARROW IWMUORGZRG80/2020Surgical Historyuro lift05/05/22 Surgical Historybone marrow biopsy04/30/22Surgical Historycataracts removed 11/19/2022, 11/26/2022Hospitalization HistoryACUTE RENAL [id number]/04/2020 Hospitalization HistoryKIDNEY STONESHospitalization HistoryHyperkalemia02/2020 Hospitalization HistorySTEM CELL TRANSPLANT, MRSA07/2020Hospitalization History UTI08/24/2021Hospitalization HistoryELEVATED CREATININE AND POTASSIUM09/18/2021 [facility] Other Hospital Discharge instructions No data available for this section [facility] No data available for this section [facility] progress note Author Brook Huddleston [facility] September 03, 2022 9:25amNote Date/TimeJanuary 2022 8:57[facility] [place] [address] Hem/Onc Follow Up Note - OP Signed Patient: Patsy Mills MR#: [id number] : 1945 Acct:[id number] Age/Sex: 77 / M Type: REG RCR [...] falls. [facility] some [facility] of his urinary [...] interval 1 month follow up; not much gear changer the past 1 month - of note, patient was taken off Revlimid on 06/27/2022 visit due to profound fatigue and no evidence of on recent Clonoseq testing. His primary complaint is urinary symptoms and increased urinary frequency - not sleeping well due to waking up frequently with urination. He is planning on undergoing TURP with Dr. Issa this 07/31/2022. He is still fatigued, still not much energy or appetite;but overall no significant changes. He saw Dr. Hall on 07/03/2022 and his note was reviewed. He mentioned that it would bebeneficial for patient to continue Revlimid if able; he was also taken off Ac yclovir and advised to follow up with Dr. Hall in 1 year with MRD testing. 06/27/2022: Patsy is here for followup to review Clonoseq testing that was still pending at last visit. He continues to have increased urine frequency andincontinence after prior Urolift surgery. Hewas given Mybetriq to manage urinefrequency but notes this was not well tolerated due to mouth sores, diarrhea, and headaches which improved after stopping the medication. No other concerningsymptomsalthough he has persistent fatigue and is frustrated with his quality of life. His Clonoseq returned at zero clonal cells. We noted since he has no evidence of disease in marrow and decreased qualityof life, he will hold Revlimid x 1 month to see if symptoms improve. One month followup with [employer] CH[employer]ER TECHNICIAN to r ramakrishnaw labs and symptoms. He also has followup with Dr. Hall in one week and will inform him of plan for one month off Revlimid. He also may seek Urology second opinion. 05/23/2022: Noted to have Urolift procedure at [facility] last month, noted increased post-op painthat is slowly improving. On 05/16 he had [...] bone marrow aspirate alone in clinic today tosend for MRD testing. Other labs are stable--we [...] of kidney stone by Dr. Seals at [place] on 01/14/2022 without complications. Sent off Revlimid since December 12, 2021 due to cytopenias. Otherwise no changes in clinical history. He is due for his second shingles shot and since he is otherwise stable with norecent infections he can receive his second dose. He did require transfusion of 2 units packed red blood cells for hemoglobin 6.7 on 01/23/2022. Hemoglobin has now improved to normal methylmalonic acidand homocystine, elevated iron saturation 72% and ferritin elevated to 663. Erythropoietin level was also elevated to 547.7 so he is not a candidate for erythrocyte stimulating agents. At this time Iwill continue to hold Revlimid since he has no evidence of M spike on his most recent serum protein electrophoresis or serum or urine immunofixation. [place]/lambda light chain ratio continues to decline to now 1.31 (normal). Due to his recent anemia we will hold his Revlimid another month and repeathis CBC in 1 month. If hemoglobin improving, we may consider resuming his maintenance Revlimid to 5mg every other day. Next follow-up in April 2022 for repeat bone marrow biopsyin interventionalradiology for specimen to be sent for minimal residual diseasetesting. I will follow-up with him 3 weeks thereafter for review of symptoms and bone marrow results, sooner as needed. 01/02/2022: Patsy and his are here for 3 month followup visit. She raised most of the concernsregarding worsening fatigue. He has been off He underwent a painful bone marrow by [employer] CH[employer] TECHNICIAN with Dr. Hall with nondiagnostic specimen. Dr. Hall recommended repeat bone marrow in the fall with MRD testing(we will set up with IR). I reviewed [...] 20 he was treated for UTI at [facility] ER, thenadmitted August 24 to [place] with dehydration and urosepsis with discharge August 29. 09/05/2021 followed up with for continued antibiotics with Bactrim DS. Urine also returned positive for candidiasis and he was treated with fluconazole daily. He stopped his hydralazine and Lasix. --09/17/2021: He returned for labs and skeletal survey at [facility] and his potassium on blood work was markedly elevated. We contacted him and advised ER evaluation at [facility]. His potassium returned at 7.3 and he required hydration, calcium gluconate, insulin with bicarb, and had a negative Covid test. He was admitted and had unremarkable renal ultrasound, transfused 1 unit of blood for hemoglobin 7.3. Potassium and creatinine normalized and he was discharged home on 09/19/2021. Since that time he has had some improvement of energy but still haspoor appetite and mild weakness. No fever, chills, or sweats. I will have him follow-up with nephrology and Dr. Ochoa for management of his potassium and creatinine. [...] due for follow-up with Dr. Hall at [facility] hematology in late October for 1 year [...] for post transplant vaccines. Stable kappa/lambda ratio--no M- spike serum and urine testing. Quant immunoglobulins normal. I will f/u with myeloma labs in 3 months--CBC, CMP, SPEP, quant IGs, kappa/lambda light chains and beta2 microglobulin. He and his are in agreement with this plan. 11/26/2020: Patsy is here for followup after D86 bone marrow biopsy at [facility] on 10/18/2020. No evidence of MRD--0.5% plasma cells andno clonal plasma cells suggestive of residual myeloma. Tolerating maintenance Revlimid 5mg daily well. No bone pain and normal renal function-- hasreleased for annual nephrology followup. He is fully vaccinated for nuqmisylips84 and I contacted Dr. Hall for coordination [...] up for palliative consultation (previously followed by Olamide Olivia). He has a followup bone marrow [...] completed all of his pretransplant evaluation at [facility] including cardiology visit 11 9 which showed ejection fraction 60%. I have contacted Dr. Hall who noted that today will be his last day of Velcade and we will hold his daratumumab. He was to have a COVID-19 teston 07/11/2020 for planned stem cell collection 07/17 and transplant on 07/23. I clarified with the staff at [facility] this this may be performed at [facility] and forwarded to them. His neuropathy in [...] He has now hemodialysis independent after daratumumab, dexamethasone,and Velcade with addition of Revlimid. Today he reports that he has had increased neuropathy symptoms in hisbilateral hands and feet with mild interference with activity (grade 2). We discussed a 25%dose reduction of Velcade on day 1, day [...] Dr. Hall regarding end of therapy and in1 month I will see him with follow-up myeloma studies. No other new concerns today. 05/07/2020: Patsy is here for 1 month follow-up. Outpatient hemodialysis was stopped after 04/24/2020due to excellent response. He was evaluated by Dr. Small at [facility] on 04/26/2020.Angel and his note that Dr. Hall felt that he was physiologically about 8 years younger than his chronologic age and would likely be transplant eligible if pretransplant work- updeems this feasible. He recommended continuing current daratumumab [...] no toxicities of chemotherapy. He sees Dr. Ochoa for follow-up tomorrow and maintains insulin with stabilization of hisblood sugars following with diabetes management clinic. I [...] has remarkably improved (>90% reduction past month). [place] light chains decreased from 12,000 to 42. [...] response. He received his first cycle of combi nation chemotherapy 03/12/2020. --Patient tolerated initial daratumumab infusion reasonably well with brief infusion reaction (dizziness and mild wheezing) that was treated with diphenhydramine, steroids, albuterol, and Demerol forrigors. He completed remaining infusion in an outpatient bed on the inpatient hart Thursday and we ant icipate further weekly daratumumab infusions as an outpatient. [...] kappa light chains, and elevated M spike. Wediscussed in detail the pathophysiology of myeloma but she felt very anxious and overwhelmed and I r eassured her that we will readdress this at further follow-up visits. 2. Patient had a metastatic bone survey showing no areas of lytic disease or pathologic fractures. We discussed CRAB criteria for multiple myeloma diagnosisand that he meets criteria of R renal and Aanemia, but not elevated calcium or bone disease (C and B). She specifically asked is stage of multiple myeloma andwe noted that he still will require beta-2 glycoprotein (ISS) but is most consistentwith stage III. We are still awaiting his [...] could be managed byhis primary physician Dr. Ochoa and he could be referred for diabetes [...] marijuana and would discuss this with his lawn service manager whetherthis would interfere with dialysis. We will also follow closely for cytopenias and reviewed infectious precautions. He has a sonfrom [place] who plans to visit on Thursday and [...] exercise given his recentdialysis and initiation of chemotherapy.I did not specifically address his diet but he may address this with our [facility] nutrition team. He will also receivechemotherapy class with our nurses in the infusion center. PRELIMINARY HISTORY (from initial consult 03/08/2020): This is a now 77-year-old male who was transferred from [place] emergency room by [facility] due to critical potassium 8.7 with elevated creatinine 11.2 and BUN 82 on 03/04/2020. We do not have any recent blood work for comparison but hehad normal creatinine in 2011. He was urgently treated for hishyperkalemia anddialysis was arranged emergently by nephrology team. He has now stabilized on dialysis and had extensive work-up for etiology of his acute renal failure with severe anemia felt to be due to anemia of renal insufficiency. Iron studies returned normal with ferritin 160, but B12 low at84 and folate low normal at 5.2. He [...] to be coordinated with nursing staffdue to [facility]. - Summary of Therapies [...] day 0 autologous stem cell transplant 07/25/2020at [facility]. 11/26/2020: Follow-up bone marrow aspiration and biopsy 10/18/2020 for MRD evaluation shows hypocellular marrow with 0.5% plasma cells, no clonal population by flow cytometry but 0.03% kappa light chainskewing. Started Revlimid 5 mg daily for maintenance therapy early October 2020. Nondiagnostic bone marrow for MRD in spring 2021 at . Planned follow-up bone marrow biopsy for MRD at [facility] fall 2021. -- 02/05/2022: Revlimid on hold [...] still fatigued and s/p TURP with Dr. Issa of urology at [place] 08/27/2022. ROS Details: All systems reviewed & [...] starting dialysis, chemotherapy, and transplant for light chainnephropathy. 11/2020--returned to baseline weight pretransplant. GENITOURINARY: Negative for dysuria and hematuria. Improved urinary output, diagnosed in February 2020 with renal failure requiring dialysis--off dialysis 04/24/2020. Prior nephrolithiasis previously followed by Dr. Seals--recent ESWL 01/14/2022 at [place]. ENDOCRINE: Negative for cold intolerance and heat intolerance. Improvement of prior hyperglycemia with home blood sugars in the 100-200s on supplemental insulin glargine. CENTRAL NERVOUS SYSTEM: Negative for gait disturbance and headache. No focal neurologic deficits orhistory of stroke. Improvement of painful sensory neuropathy [...] Negative for environmental allergies and food allergies. [facility] - History Attestation statement: The [...] pen (Lantus Solostar U-100 Insulin) 25 unit subcutDAILY 04/27/20 [History Confirmed 09/03/22] insulin lispro 100 unit/mL subcutaneous pen (Humalog KwikPen (U-100) Insulin) 6 - 16 unit subcut ASDIRECTED 04/27/20 [History Confirmed 09/03/22] atorvastatin 20 mg [...] October 2021, repeat MRD bone marrow at [facility] April 2022, MRD aspirate sent 05/23/2022--Clonoseq returned [...] first cycle Daratumumab, Velcade, and dexamethasone on 03/12/2020--otherthan infusion reaction from first Daratumumab, improved withsymptomatic [...] week to review results as well as evaluationwith Dr. Hall for possible stem cell transplant. 06/04/2020: Tolerating chemotherapy well other than increasing neuropathy of hands and feet. Dose reduced Velcade by 25% next cycle. Added daily ferrous sulfate. --He was referred to diabetes management clinic and sees Dr. Ochoa with regularfollow-up by Dr. Rahman since he [...] chain nephropathy. Melphalan 100mg/m2 + ASCT Day . 11/26/2020: Followup of [facility] end of therapy bone marrow biopsy 10/18/2020--no minimal residual disease. Started Revlimid maintenance 5mg daily in early October2020. 02/27/2021: No new symptoms other than rash. Slow improvement of neuropathy--titrating off gabapentin with palliative medicine. Benadryl for rash. Continue Revlimid 5mg daily. He will be due for firstpost transplant vaccines sooner--will check schedule with . [...] function is actually improved from prior values withcreatinine clearance of 50. We sent serum iron [...] kappa/lambda light chain ratio. MRD testing at [facility] was nondiagnostic and he will have repeat bone marrow biopsy here with me to send MRD testing. Next followup with me in 3 months for exam and f/u myeloma labs. We will coordinate his bone marrowbiopsy at that time. He will continue follow-up [...] be scheduled for MRD bone marrow at [facility] interventional radiology in April 2022, then follow-up with me with review of myeloma labs 3 months after this procedure. He still has undetectablemonoclonal spike and normal kappa/lambda light chain ratio on most recent labs. Renal function is improving since ESWL at [place] in late December. 05/23/2022: No new issues, [...] and increased urine frequency despite recent Urolift procedure.Intolerant of Myrbetriq. Clonoseq reveals no clonal tumor cells. Recommend holding Revlimid 1 monthfor cytopenias and persistent fatigue due to quality of life concerns. He will followup with Dr. Hall next week to discuss holding Revlimid. If symptoms improved at one month followup with [employer] TECHNICIAN, he will followup with me in one month with CBC, CMP, SPEP for monoclonal spike and kappa/lambda light chain ratio. 07/28/2022: Patsy is here for interval 1 month follow up; not much gear changer the past 1 month - of note, patient was taken off Revlimid on 06/27/2022 visit due to profound fatigue and no evidence of on recent Clonoseq testing. His primary complaint is urinary symptoms and increased urinary frequency - not sleeping well due to waking up frequently with urination. He is planning on undergoing TURP with Dr. Issa this 07/31/2022. He is still fatigued, still not much energy or appetite;but overall no significant changes. He saw Dr. Hall on 07/03/2022 and his note was reviewed. He mentioned that it would bebeneficial for patient to continue Revlimid if able; he was also taken off Ac yclovir and advised to follow up with Dr. [...] symptoms have improved since TURP with Dr. Issa 06/27/2023. No evidence of infection on urinalysis. Fatigue is slowly improving off Revlimid the last 2 months. He does have persistent anemia with hemoglobin 8.1, persistent macrocytosis. I am rechecking his methylmalonic acid and homocystine as he is on monthly parenteral B12 but we mayneed to give himfurther loading doses over the next 8 weeks [...] we may continue to hold Revlimid and followevery 3 months. -- Slowly improving symptoms off [...] Chemotherapy given Thursday/. I explained to patient andhis that with light chain nephropathy once we [...] - Adverse effect of glucocorticoids and synthetic analogues,subsequent encounter Patsy had an excellent response of light chains but was noted to have significant hyperglycemia 300-500 fasting blood sugars. He was referred to diabetes management clinic with addition of insulin therapy that has significantlyimproved control of his blood sugars. Patient also had remarked on someblurredvision that improved with control of blood sugars. Continue follow-up of blood sugars duringadmission for transplant in early July. 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 Resumed low dose metformin and titrating downinsulin--directed by his primary physician. Recent injection (likely [...] vitamin D2 therapy 50,000 units orally for low25 hydroxy vitamin D stores. He may take [...] cycle with cycle 2 due to excellent reductionof kappa light chains (recommended by Dr. Hall malignanthematology). 06/04/2020: 25% DR Steven (100% all other meds) due to worsening neuropathy. Last dose of bortezomib 07/02/2020 and holding daratumumab per request of Dr. Hall. 07/25/2020: Melphalan 100mg/m2 + autologous PBSCT 10/18/2020: Started Revlimid 5 mg daily maintenance after bone marrow biopsy negative for MRD. RepeatMRD bone marrow at [facility] in 3 months because spring 2021 bone [...] interval 1 month follow up; not much gear changer the past 1 month - of note, patient was taken off Revlimid on 06/27/2022 visit due to profound fatigue and no evidence of on recent Clonoseq testing. - planning to hold Revlimid with pending urology procedure for additional month;reviewed Dr. Hall's note from 07/03/2022; he mentioned it would be beneficial for patient to continue Revlimid if able- possibly at lower dose of 2.5 mg. [...] for coordination of care (as documented) and [id number] counseling of patient and/or family. Dictated By: Brook Huddleston MD DD/ [id number] Signed By: <Electronically signed by MD Brook Huddleston> 09/03/22 0925 [facility] Work Phone: Progress note Author Delmar Wilburn [facility] January 22, 2024 6:09pmNote Date/TimeJune 2023 6:10pmFIRELAN[place] [address] Urology Progress Note Signed Patient: Patsy Mills MR#: [id number] : 1945 Acct:[id number] Age/Sex: 78 / M Adm Date: 4 Loc: Room: [address] [place] [address] Type: ADM IN Attending Dr: Clarence Miller [...] % (Auto) 72.2, Lymph % (Auto) 17.0, Randolph % (Auto) 7.2, Eos % (Auto) 3.3, Baso % (Auto) 0.3, Nucleat RBC Rel Count 0.1, Neut #(Auto) 5.8, Lymph # (Auto) 1.4, Randolph # (Auto) 0.6, Eos # (Auto) 0.3, Baso # (Auto) 0.0, PHA Creatinine Clear 26.98, Sodium 141, Potassium 4.1, Chloride 110 H, Carbon Dioxide 23.3, Anion Gap 11.8, BUN31 H, Creatinine 2.58 H, Est GFR (CKD-EPI) [...] % (Auto) 80.2, Lymph % (Auto) 10.3, Randolph % (Auto) 6.6, Eos % (Auto) 2.7, Baso % (Auto) 0.2, Nucleat RBC Rel Count 0.1, Neut #(Auto) 6.4, Lymph # (Auto) 0.8 L, Randolph # (Auto) 0.5, Eos # (Auto) 0.2, [...] better he will make appt w/ dr issa who he follows with generally for spt [...] <Electronically signed by Delmar Wilburn MD> 01/22/241808 [facility] Work Phone: Reason for referral (narrative)No reason for referral information availableAcmc Healthcare System Work Phone: Summary Purpose Family History No Family History Records Found Relationship Condition Age at Onset Recorded Date/T daphne sister Myocardial infarction Unknown Not SpecifiedMyocardial infarctionUnknownfatherMalignant neoplasm of skinUnknown Relationship Condition Age at Onset Recorded Date/T daphne sister Myocardial infarction Unknown Not SpecifiedMyocardial infarctionUnknownfatherMalignant neoplasm of skinUnknown brotherHypertensionUnknownDiabetes mellitusUnknownfatherDeceasedUnknownMalignant neoplasmUnknownfamily memberDeceasedUnknownNot SpecifiedDeceasedUnknownHistory of strokeUnknown Relationship Condition Age at Onset Recorded Date/T daphne sister Myocardial infarction Unknown motherMyocardial infarctionUnknownfatherMalignant neoplasm of skinUnknownbrother HypertensionUnknownDiabetes mellitusUnknownfatherDeceasedUnknownMalignant neoplasmUnknownfamily memberDeceasedUnknownmotherDeceasedUnknownHistory of strokeUnknown Advance Directives No Advanced Directives Records Found Advance Directive Response Recorded Date/ Time Advance Directives No March 04 3:56am Advance Directive Response Recorded Date/ Time Advance Directives No March 04 2:56am Chief Complaint and Reason for Visit Chief Complaint N39.0 Multiple MylomaReason for VisitAnemia of renal disease B12 deficiency Chemotherapy-induced peripheral neuropathy Encounter for chemotherapy management History of hemodialysis 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 Rash and nonspecific skin eruption Steroid-induced diabetes mellitus Superficial thrombophlebitis of left upper extremity Acute renal failure on dialysis Chief Complaint N39.0 Multiple Myloma I12.9 N17.9 E11.65 N18.30 I10 C90.00 E11.9 N20.0 N28.89 C90.00Reason for VisitAnemia of renal disease B12 deficiency Chemotherapy-induced peripheral neuropathy Encounter for chemotherapy management History of hemodialysis 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 Rash and nonspecific skin eruption Steroid-induced diabetes mellitus Superficial thrombophlebitis of left upper extremity Acute renal failure on dialysis Chief Complaint N39.0 I12.9 N17.9 E11.65 N18.30 I10 C90.00 E11.9 N20.0 N28.89 C90.00 Multiple MylomaReason for VisitAnemia of renal disease B12 deficiency Chemotherapy-induced peripheral neuropathy Encounter for chemotherapy management History of hemodialysis 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 Rash and nonspecific skin eruption Steroid-induced diabetes mellitus Superficial thrombophlebitis of left upper extremity Acute renal failure on dialysis Chief Complaint I12.9 N17.9 E11.65 N 18.30 I10 C90.00 E11.9 N20.0 N28.89 C90.00 Multiple MylomaReason for VisitAnemia of renal disease B12 deficiency Chemotherapy-induced peripheral neuropathy Encounter for chemotherapy management History of hemodialysis 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 Rash and nonspecific skin eruption Steroid-induced diabetes mellitus Superficial thrombophlebitis of left upper extremity Acute renal failure on dialysis Chief Complaint N28.89 C90.00 Multiple MylomaReason for VisitAnemia of renal disease B12 deficiency Chemotherapy-induced peripheral [...] on dialysis Chief Complaint Multiple Myloma Kidney stonesReason for VisitAnemia of renal disease B12 deficiency Chemotherapy-induced peripheral neuropathy Encounter for chemotherapy management History of hemodialysis 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 Rash and nonspecific skin eruption Steroid-induced diabetes mellitus Superficial thrombophlebitis of left upper extremity Acute renal failure on dialysis Chief Complaint Kidney stones Multiple Myloma N20.0Reason for VisitAnemia of renal disease B12 deficiency Chemotherapy-induced peripheral neuropathy Encounter for chemotherapy management History of hemodialysis 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 Rash and nonspecific skin eruption Steroid-induced diabetes mellitus Superficial thrombophlebitis of left upper extremity Acute renal failure on dialysis Chief Complaint Kidney stones N20.0 nephrosis Multiple MylomaReason for VisitAnemia of renal disease B12 deficiency Chemotherapy-induced peripheral neuropathy Encounter for chemotherapy management History of hemodialysis 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 Rash and nonspecific skin eruption Steroid-induced diabetes mellitus Superficial thrombophlebitis of left upper extremity Acute renal failure on dialysis Chief Complaint Kidney stones N20.0 nephrosis nephrosis Multiple MylomaReason for VisitAnemia of renal disease B12 deficiency Chemotherapy-induced peripheral neuropathy Encounter for chemotherapy management History of hemodialysis 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 Rash and nonspecific skin eruption Steroid-induced diabetes mellitus Superficial thrombophlebitis of left upper extremity Acute renal failure on dialysis Chief Complaint Kidney stones N20.0 nephrosis nephrosis E11.9 C61 Z80.42 Multiple MylomaReason for VisitAnemia of renal disease B12 deficiency Chemotherapy-induced peripheral neuropathy Encounter for chemotherapy management History of hemodialysis 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 Rash and nonspecific skin eruption Steroid-induced diabetes mellitus Superficial thrombophlebitis of left upper extremity Acute renal failure on dialysis Chief Complaint Kidney stones N20.0 nephrosis nephrosis E11.9 N39.0 C61 Z80.42 Multiple Myloma N13.30 R39.14 N32.81 N40.1 R31.21 Z87.442Reason for VisitAnemia of renal disease B12 deficiency Chemotherapy-induced peripheral [...] N32.81 N40.1 R31.21 Z87.442 Cervical Radiolpathy Multiple MylomaReason for VisitAnemia of renal disease B12 deficiency Chemotherapy-induced peripheral [...] Z87.442 Cervical Radiolpathy Multiple Myloma n13.30 r39.14 z32.81Reason for VisitAnemia of renal disease B12 deficiency Chemotherapy-induced peripheral [...] Cervical Radiolpathy n13.30 r39.14 z32.81 Multiple Myloma hydronephrosisReason for VisitAnemia of renal disease B12 deficiency Chemotherapy-induced peripheral neuropathy Encounter for chemotherapy management History of hemodialysis 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 Rash and nonspecific skin eruption Steroid-induced diabetes mellitus Superficial thrombophlebitis of left upper extremity Acute renal failure on dialysis Chief Complaint Cervical Radiolpathy n13.30 r39.14 z32.81 hydronephrosis n18.30 n17.9 i12.9 e11.65 i10 c90.00 e11.9 n20.00 xray Multiple MylomaReason for VisitAnemia of renal disease B12 deficiency Chemotherapy-induced peripheral [...] on dialysis Chief Complaint xray Multiple Myloma N20.0Reason for VisitAnemia of renal disease B12 deficiency Chemotherapy-induced peripheral [...] n20.0 d64.9 e87.5 Multiple Myloma Kidney stones, hydronephrosisReason for VisitAnemia of renal disease B12 deficiency Chemotherapy-induced peripheral [...] Chief Complaint Kidney stones, hydro nephrosis Multiple MylomaReason for VisitAnemia of renal disease B12 deficiency Chemotherapy-induced peripheral [...] F/U Multiple Myloma e11.9 i10 e78.9 e55.9 z13.296Reason for VisitChronic suprapubic catheter Anemia of renal disease B12 deficiency Encounter for coordination of complex care History of hemodialysis 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 Anemia of chronic renal failure, stage 4 (severe) Diabetes 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 Hydronephrosis Hyperkalemia [id number] Hypophosphatemia Stage 3b chronic kidney disease (CKD) [...] i10 e78.9 e55.9 z13.296 Multiple Myloma cath issuesReason for VisitAnemia of chronic renal failure, stage 4 (severe) Diabetes 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 Hydronephrosis Hyperkalemia [id number] Hypophosphatemia Stage 3b chronic kidney disease (CKD) [...] e55.9 z13.296 Multiple Myloma cath issues cath issuesReason for VisitAnemia of chronic renal failure, stage 4 (severe) Diabetes 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 Hydronephrosis Hyperkalemia [id number] Hypophosphatemia Stage 3b chronic kidney disease (CKD) [...] Chief Complaint Multiple Myloma cath issues cath issuesReason for VisitAnemia of renal disease B12 deficiency Chemotherapy-induced peripheral [...] Complaint cath issues cath issues Multiple Myloma [id number] for VisitAKI (acute kidney injury) Chronic suprapubic catheter Complicated [...] e83.39 n13.30 n18.32 n18.4 d63.1 c61 Multiple MylomaReason for VisitAKI (acute kidney injury) Chronic suprapubic catheter Complicated [...] d63.1 c61 Multiple Myloma RENAL 4 MONTH F/UReason for VisitAKI (acute kidney injury) Chronic suprapubic catheter Complicated [...] Diabetes 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 Hyperkalemia [id number] Hypophosphatemia Stage 3b chronic kidney disease (CKD) 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 Chief Complaint RENAL 4 MONTH F/U Unknown Multiple Myloma Follow UpReason for VisitAnemia of chronic renal failure, stage 4 (severe) Diabetes 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 Hyperkalemia [id number] Hypophosphatemia Stage 3b chronic kidney disease (CKD) [...] Unknown Multiple Myloma Follow Up sent by Carlos A jeffers for VisitAnemia of chronic renal failure, stage 4 (severe) Diabetes 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 Hyperkalemia [id number] Hypophosphatemia Stage 3b chronic kidney disease (CKD) [...] Unknown Multiple Myloma Follow Up sent by Carlos A jeffers for VisitAnemia of chronic renal failure, stage 4 (severe) Diabetes 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 Hyperkalemia [id number] Hypophosphatemia Stage 3b chronic kidney disease (CKD) [...] Up sent by aury, potassium sent by Carlos A jeffers for VisitAnemia of chronic renal failure, stage 4 (severe) Diabetes 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 Hyperkalemia [id number] Hypophosphatemia Light chain nephropathy due to multiple [...] 4, GFR 15-29 ml/min Hydronephrosis, left Hyperkalemia [id number] 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 Anemia of renal disease Chief Complaint Unknown Multiple Myloma Follow Up sent by aury potassium sent by erna jeffers Chronic Kidney Disease Stage IVReason for EewmrF61 deficiency Chemotherapy-induced peripheral neuropathy Encounter for chemotherapy [...] aury, potassium June 02 5:52pm sent by aury potassium June 03 9:34am Chronic Kidney Disease [...] Diabetes 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 Dec emb2023 3:32pm Hypophosphatemia August 03, 2024 3:32pm History of anemia due to vitamin B12 def iciency August 03, 2024 3:32pm 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 August 03, 2024 3:32pm Hyperkalemia August 03, 2024 3:32pm Stage 3b chronic kidney disease (CKD) 2023 3:32pm B12 deficiency September 27, 2024 12:16pm Chemotherapy-induced peripheral neuropat hy September 27, 2024 12:16pm Encounter for chemotherapy management Fe trangvaughn 2024 12:16pm Encounter for coordination of complex [...] 12:16pm Anemia of renal disease September 27 025 12:16pm Chief Complaint Admit Date F/U [...] 3:32pm Stage 3b chronic kidney disease (CKD) [email or web address] 3:32pm B12 deficiency September 27, 2024 12:16pm [...] 12:16pm Anemia of renal disease September 27 025 12:16pm Anemia of chronic renal failure, stage 4 (severe) October 04, 2024 3:21pm Diabetes 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 [facility] 2024 3:21pm Hypophosphatemia October 04, 2024 3:21pm History of anemia due to vitamin B12 def iciency October 04, 2024 3:21pm 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 October 04, 2024 3:21pm Hyperkalemia October 04, 2024 3:21pm Stage 3b chronic kidney disease (CKD) [facility] 2024 3:21pm Chief Complaint Admit Date F/U Renal August 03, 2024 3:32pm e11.9 e83.39 n18.4 d63.1 n28.89 c90.00 F [facility] 2024 12:11pm renal 3 month f/u [...] kidney disease (CKD) De cember 2023 3:32pm Anemia of chronic renal failure, stage 4 (severe) October 04, 2024 3:21pm Diabetes 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 Fedarryl ruvaughn 2024 3:21pm Hypophosphatemia October 04, 2024 3:21pm History of anemia due to vitamin B12 def iciency October 04, 2024 3:21pm 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 October 04, 2024 3:21pm Hyperkalemia October 04, 2024 3:21pm Stage 3b chronic kidney disease (CKD) [facility] 2024 3:21pm Anemia of chronic renal [...] 06, 2024 1:24pm Encounter for chemotherapy management [facility] 2024 1:24pm Encounter for coordination of [...] vaughn 2024 1:24pm Steroid-induced diabetes mellitus Februa 2024 1:24pm Superficial thrombophlebitis of left upp er extremity October 06, 2024 1:24pm Urinary incontinence October 06, 2024 1:24pm Acute renal failure on dialysis October 06, 2024 1:24pm Anemia of renal disease October 06 025 1:24pm Chief Complaint Admit Date F/U Renal August 03, 2024 3:32pm e11.9 e83.39 n18.4 d63.1 n28.89 c90.00 F [facility] 2024 12:11pm renal 3 month f/u October 04, 2024 3:21pm Follow Up October 06, 2024 12:57pm Multiple Myloma October 06, 2024 1:24pm Unknown October 17, 2024 1:00 pm Chief Complaint Admit Date e11.9 e83.39 n18.4 d63.1 n28.89 c90.00 F [facility] 2024 12:11pm renal 3 month f/u October 04, 2024 3:21pm Follow Up October 06, 2024 12:57pm Multiple Myloma October 06, 2024 1:24pm Unknown October 17, 2024 1:00 pm Unknown November 09, 2024 3:3 9pm Reason for Visit Admit Date Anemia of chronic renal failure, stage 4 (severe) October 04, 2024 3:21pm Diabetes 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 [facility] 2024 3:21pm Hypophosphatemia October 04, 2024 3:21pm History of anemia due to vitamin B12 def iciency October 04, 2024 3:21pm 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 October 04, 2024 3:21pm Hyperkalemia October 04, 2024 3:21pm Stage 3b chronic kidney disease (CKD) [facility] 2024 3:21pm Anemia of chronic renal [...] 06, 2024 1:24pm Encounter for chemotherapy management [facility] 2024 1:24pm Encounter for coordination of complex ca re October 06, 2024 1:24pm History of anemia due to vitamin B12 def iciency October 06, 2024 1:24pm History of hemodialysis October 06 2 025 1:24pm Iron deficiency anemia October 06 1:24pm 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 October 06, 2024 1:24pm Rash and nonspecific skin eruption Febru vaughn 2024 1:24pm Steroid-induced diabetes mellitus Februa 2024 1:24pm Superficial thrombophlebitis of left upp [...] 11, 2024 11:25am Encounter for chemotherapy management [facility] 2024 11:25am Encounter for coordination of [...] Stage 3b [facility]D) [facility] 3:21[facility] Anemia of chronic renal failure, [...] Anemia of renal disease April 05 1:24pm Chief Complaint Admit Date Follow Up 4 Months February 08, 2025 1:54 pm Z01.812 N13.30 N18.4 n1330 April 05, 2025 1:14pm Multiple Myloma April 05, 2025 1: 24pm RENAL 4 MONTH F/U May 02, 2025 3:15pm Reason for Visit Admit Date Anemia of [...] Anemia of renal disease April 05 1:24pm Anemia of chronic renal failure, stage 4 (severe) May 02, 2025 3:15pm CKD (chronic kidney disease) stage 4, GF R 15-29 ml/min May 02, 2025 3:15pm Diabetes 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 Sep tember 2024 3:15pm Hypophosphatemia May 02, 2025 3:15pm History of anemia due to vitamin B12 def iciency May 02, 2025 3:15pm 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 May 02, 2025 3:15pm Reason for Referral Referred by: Diego RICKS, [...] section and content) DATE CREATED AUTHOR 09/07/2020 [employer] DATE CREATED AUTHOR AUTHOR'S ORGANIZ ATION 11/06/2022 [facility] DATE CREATED AUTHOR AUTHOR'S ORGANIZ ATION 12/15/2022 [facility] DATE CREATED AUTHOR AUTHOR'S ORGANIZ ATION 01/11/2024 [facility] DATE CREATED AUTHOR AUTHOR'S ORGANIZ ATION 01/19/2024 [facility] DATE CREATED AUTHOR AUTHOR'S ORGANIZ ATION 01/21/2024 [facility] DATE CREATED AUTHOR AUTHOR'S ORGANIZ ATION 02/10/2024 [facility] DATE CREATED AUTHOR AUTHOR'S ORGANIZ ATION 03/21/2024 [facility] DATE CREATED AUTHOR AUTHOR'S ORGANIZ ATION 04/20/2024 [facility] DATE CREATED AUTHOR AUTHOR'S ORGANIZ ATION 04/23/2024 [facility] DATE CREATED AUTHOR AUTHOR'S ORGANIZ ATION 06/04/2024 [facility] DATE CREATED AUTHOR AUTHOR'S ORGANIZ ATION 08/26/2024 [facility] DATE CREATED AUTHOR AUTHOR'S ORGANIZ ATION 08/30/2024 [facility] DATE CREATED AUTHOR AUTHOR'S ORGANIZ ATION 09/10/2024 [facility] DATE CREATED AUTHOR AUTHOR'S ORGANIZ ATION 09/13/2024 [facility] DATE CREATED AUTHOR AUTHOR'S ORGANIZ ATION 11/12/2024 [facility] DATE CREATED AUTHOR AUTHOR'S ORGANIZ ATION 11/19/2024 [facility] DATE CREATED AUTHOR AUTHOR'S ORGANIZ ATION 12/02/2024 [facility] DATE CREATED AUTHOR AUTHOR'S ORGANIZ ATION 12/25/2024 [facility] DATE CREATED AUTHOR AUTHOR'S ORGANIZ ATION 01/15/2025 [facility] DATE CREATED AUTHOR AUTHOR'S ORGANIZ ATION 02/03/2025 [facility] DATE CREATED AUTHOR AUTHOR'S ORGANIZ ATION 02/23/2025 [facility] DATE CREATED AUTHOR AUTHOR'S ORGANIZ ATION 02/24/2025 [facility] DATE CREATED AUTHOR AUTHOR'S ORGANIZ ATION 03/01/2025 [facility] DATE CREATED AUTHOR AUTHOR'S ORGANIZ ATION 03/08/2025 [facility] DATE CREATED AUTHOR AUTHOR'S ORGANIZ ATION 03/10/2025 [facility] DATE CREATED AUTHOR AUTHOR'S ORGANIZ ATION 03/11/2025 [facility] DATE CREATED AUTHOR AUTHOR'S ORGANIZ ATION 03/19/2025 [facility] DATE CREATED AUTHOR AUTHOR'S ORGANIZ ATION 03/22/2025 [facility] DATE CREATED AUTHOR AUTHOR'S ORGANIZ ATION 05/22/2025 [facility] DATE CREATED AUTHOR AUTHOR'S ORGANIZ ATION 05/23/2025 [facility] DATE CREATED AUTHOR AUTHOR'S ORGANIZ ATION 06/03/[address] [facility] DATE CREATED AUTHOR AUTHOR'S ORGANIZ ATION 06/22/2025 [facility] DATE CREATED AUTHOR AUTHOR'S ORGANIZ ATION 06/23/2025 [facility] DATE CREATED AUTHOR AUTHOR'S ORGANIZ ATION 06/26/2025 [facility] Care Team (unrecognized sect ion and content) Team Status: Active Member Role Status Dates Helen Ochoa MD Primary Care Provider Active Team Status: Inactive Member Role Status Dates Helen Ochoa MD Primary Care Provider Active Start: January 19, 2024 End: January 22, 2024Sharmila Cuba ProviderActiveStart: January 19, 2024 End: January 22, 2024Gallito Carlton Provider, Attending ProviderActive Start: January 19, 2024 End: January 21musa Crain MDOther ProviderActiveStart: January 19, 2024 End: January 22, 2024Delmar Wilburn MDOther ProviderActiveStart: January 19, 2024 End: January 22, 2024 Team Status: Active Member Role Status Dates Helen Ochoa MD Primary Care Provider Active Start: January 21, 2024 End: January 22, 2024Sharmila Cuba ProviderActiveStart: January 21, 2024 End: January 22, 2024Clarence Miller , DOAdmit Provider, Other ProviderActiveStart: January 21, 2024 End: January 21musa Crain MDAttending Provider, Other ProviderActive Start: January 21, 2024 End: January 22, 2024 Team Status: Inactive Member Role Status Dates Helen Ochoa MD Primary Care Provider Active Start: 2024 End: February 03my FlaquitoJOSE christopherttending ProviderActiveStart: 2024 End: 2024 Team Status: Active Member Role Status Dates Helen Ochoa MD Primary Care Provider Active Start: February 19, 2024 Brook Huddleston MDAttending ProviderActiveStart: February 19, 2024 Team Status: Inactive Member Role Status Dates Helen Ochoa MD Primary Care Provider Active Start: February 25, 2024 End: February 25, 2024Orquidea Issa MDAttending ProviderActiveStart: February 25, 2024 End: February 25, 2024 Team Status: Active Member Role Status Dates Helen Ochoa MD Primary Care Provider Active Start: December 18, 2023 Brook Huddleston MDAttending ProviderActiveStart: December 18, 2023 Team Status: Active Member Role Status Dates Helen Ochoa MD Primary Care Provider Active Start: January 21, 2024 Ramesh Seals MDEmerriver [facility] medical centercy ProviderActiveStart: January 21, 2024 Clarence Miller , DOAdmit Provider, Other ProviderActiveStart: January 21, 2024 Price Crain MDAttending Provider, Other ProviderActiveStart: January 21, 2024 Team Status: Active Member Role Status Dates Helen Ochoa MD Primary Care Provider Active Brook Huddleston MDAttending ProviderActive Team Status: Inactive Member Role Status Dates Helen Ochoa MD Attending Provider Active PHYSICIAN NO FAMILYPrimary Care ProviderActive Team Status: Active Member Role Status Dates PHYSICIAN NO FAMILY Primary Care Provider Active Team Status: Inactive Member Role Status Dates Helen Ochoa MD Primary Care Provider Active Ankit Ashtonending ProviderActive Team Status: Inactive Member Role Status Sue Ochoa MD Primary Care Provider Active Brook Huddleston MDAttending ProviderActive Team Status: Inactive Member Role Status Dates Helen Ochoa MD Primary Care Provider Active Orquidea M Lue , MDAttending ProviderActiveAziz Bakhous , MDReferring Provider Active Team Status: Inactive Member Role Status Dates Helen Ochoa MD Primary Care Provider Active Carola Heller ProviderActive Team Status: Inactive Member Role Status Dates Helen Ochoa MD Primary Care Provider, Attending Laurie masterson Active Team Status: Inactive Member Role Status Dates Helen Ochoa MD Primary Care Provider, Other Provi corazon Active Orquidea Issa MDAttending ProviderActiveTeam MemberRelationshipSpecialtyStart DateEnd Date Helen Ochoa MD [address] [place] [id number] PCP - [facility] Medicine02/11/23Team MemberRelationshipSpecialtyStart DateEnd Date Helen Ochoa MD [address] [place] [id number] PCP - [facility]02/11/23 Team Status: Inactive Member Role Status Dates Helen Ochoa MD Primary Care Provider Active Start: July 14, 2023 End: July 14elisabeth Issa MDAttending ProviderActiveStart: July 14, 2023 End: July 14, 2023 Team Status: Active Member Role Status Sue Ochoa MD Primary Care Provider Active Start: October 01, 2023 Ankit Lovettending ProviderActiveStart: October 01, 2023 Team Status: Inactive Member Role Status Sue Ochoa MD Primary Care Provider Active Start: October 01, 2023 End: October 01Ankit Espinozaending ProviderActiveStart: October 01, 2023 End: October 01, 2023 Team Status: Inactive Member Role Status Sue Ochoa MD Primary Care Provider Active Start: October 26, 2023 End: October 25musa Crain MDAttending ProviderActiveStart: October 26, 2023 End: October 26, 2023 Team Status: Active Member Role Status Sue Ochoa MD Primary Care Provider Active Start: October 29, 2023 Ankit Lovettending ProviderActiveStart: October 29, 2023 Team Status: Inactive Member Role Status Sue Ochoa MD Primary Care Provide r, Attending Provider Active Start: November 04, 2023 End: November 04, 2023 Team Status: Active Member Role Status Sue Ochoa MD Primary Care Provider Active Start: January 19, 2024 Ramesh Seals MDEmermor ProviderActiveStart: January 19, 2024 Clarence Miller DOAdmit Provider, Attending ProviderActiveStart: January 19, 2024 Team Status: Inactive Member Role Status Sue Ochoa MD Primary Care Provide r, Other Provider Active Start: February 29, 2024 End: February 28musa Crain MDAttending ProviderActiveStart: February 29, 2024 End: February 29, 2024 Team Status: Active Member Role Status Sue Ochoa MD Primary Care Provider Active Start: February 29, 2024 Carola Lovett ProviderActiveStart: February 29, 2024 Team Status: Active Member Role Status Sue Ochoa MD Primary Care Provider Active Start: March 08, 2024 Brook Huddleston MDAttending ProviderActiveStart: March 08, 2024 Team Status: Inactive Member Role Status Sue Ochoa MD Primary Care Provider Active Start: March 08, 2024 End: March 08musa Crain MDAttending ProviderActiveStart: March 08, 2024 End: March 08, 2024 Team Status: Active Member Role Status Sue Ochoa MD Primary Care Provider Active Start: June 01, 2024 Orquidea Issa MDAttending ProviderActiveStart: June 01, 2024 Team Status: Active Member Role Status Sue Ochoa MD Primary Care Provider Active Start: June 02, 2024 Carola Lovett ProviderActiveStart: June 02, 2024 Team Status: Inactive Member Role Status Sue Ochoa MD Primary Care Provider Active Start: June 02, 2024 End: June 02Carola Espinoza ProviderActiveStart: June 02, 2024 End: June 02, 2024 Team Status: Active Member Role Status Sue Ochoa MD Primary Care Provider Active Start: June 02, 2024 Shekhar Prather ProviderActiveStart: June 02, 2024 Mayda Matthews , MDAdmit Provider, Attending ProviderActiveStart: June 02, 2024 May English ProviderActiveStart: June 02, 2024 May Heller ProviderActiveStart: June 02, 2024 Team Status: Inactive Member Role Status Dates Helen Ochoa MD Primary Care Provider Active Start: June 01, 2024 End: June 01, 2024Carola Heller ProviderActiveStart: June 01, 2024 End: June 01, 2024 Team Status: Inactive Member Role Status Dates Helen Ochoa MD Primary Care Provider Active Start: June 02, 2024 End: June 05Shekhar Hill ProviderActiveStart: June 02, 2024 End: June 05, 2024Mayda Matthews , MDAdmit Provider, Attending Provider ActiveStart: June 02, 2024 End: June 05May Painting ProviderActiveStart: June 02, 2024 End: June 05, 2024May Heller ProviderActiveStart: June 02, 2024 End: June 05, 2024 Team Status: Active Member Role Status Dates Helen Ochoa MD Primary Care Provider Active Start: June 03, 2024 Shekhar Prather ProviderActiveStart: June 03, 2024 Mayda Matthews , MDAdmit Provider, Other ProviderActiveStart: June 03, 2024 Domonique Rahman MDAttakshat Provider, Other ProviderActiveStart: June 03, 2024 May Heller ProviderActiveStart: June 03, 2024 Team Status: Inactive Member Role Status Dates Helen Ochoa MD Primary Care Provider Active Start: June 08, 2024 End: June 08Carola Painting ProviderActiveStart: June 08, 2024 End: June 08, 2024 Team Status: Inactive Member Role Status Dates Helen Ochoa MD Primary Care Provider Active Start: June 23, 2024 End: June 23Carola Wright ProviderActiveStart: June 23, 2024 End: June 23, 2024 Team Status: Active Member Role Status Sue Ochoa MD Primary Care Provider Active Start: June 23, 2024 Brook Huddleston , MDAttending ProviderActiveStart: June 23, 2024 Team Status: Inactive Member Role Status Sue Ochoa MD Primary Care Provider Active Start: June 29, 2024 End: June 29ziz Bakisaaks , MDAttending ProviderActiveStart: June 29, 2024 End: June 29, 2024 Team Status: Inactive Member Role Status Sue Ochoa MD Primary Care Provider Active Start: August 03, 2024 End: August 03ziz Bakisaaks , MDAttending ProviderActiveStart: August 03, 2024 End: August 03, 2024 Team Status: Inactive Member Role Status Sue Ochoa MD Primary Care Provider Active Start: September 27, 2024 End: September 27ziz Bakisaaks , MDAttending ProviderActiveStart: September 27, 2024 End: September 27, 2024 Team Status: Active Member Role Status Sue Ochoa MD Primary Care Provider Active Start: September 27, 2024 Brook Huddleston , MDAttending ProviderActiveStart: September 27, 2024 Team Status: Inactive Member Role Status Sue Ochoa MD Primary Care Provider Active Start: October 04, 2024 End: October 04zievangelist Bakisaaks , MDAttending ProviderActiveStart: October 04, 2024 End: October 04, 2024 Team Status: Inactive Member Role Status Sue Ochoa MD Primary Care Provider Active Start: October 06, 2024 End: October 06my Flaquito , MDAttending ProviderActiveStart: October 06, 2024 End: October 06, 2024 Team Status: Active Member Role Status Sue Ochoa MD Primary Care Provider Active Start: October 06, 2024 Brook Huddleston , JOSEttending ProviderActiveStart: October 06, 2024 Team Status: Inactive Member Role Status Sue Issa MD Attending Provider Active Start : October 17, 2024 End: October 17, 2024 Team Status: Inactive Member Role Status Sue Issa MD Attending Provider Active Start : November 09, 2024 End: November 09, 2024 Team Status: Active Member Role Status Sue Ochoa MD Primary Care Provider Active Start: November 11, 2024 Carola Lovett ProviderActiveStart: November 11, 2024 Team Status: Inactive Member Role Status Sue Ochoa MD Primary Care Provide r, Attending Provider Active Start: November 11, 2024 End: November 11, 2024 Team Status: Active Member Role Status Sue Ochoa MD Primary Care Provider Active Start: December 14, 2024 Carola Lovett ProviderActiveStart: December 14, 2024 Team Status: Inactive Member Role Status Sue Ochoa MD Primary Care Provider Active Start: December 14, 2024 End: December 14, 2024Carola Heller ProviderActiveStart: December 14, 2024 End: December 14, 2024 Team Status: Inactive Member Role Status Sue Ochoa MD Primary Care Provider Active Start: December 28, 2024 End: December 28Carola Wright ProviderActiveStart: December 28, 2024 End: December 28, 2024 Team Status: Inactive Member Role Status Sue Ochoa MD Primary Care Provider Active Start: November 11, 2024 End: November 11, 2024Carola Lock ProviderActiveStart: November 11, 2024 End: November 11, 2024 Team Status: Inactive Member Role Status Sue Ochoa MD Primary Care Provider Active Start: January 03, 2025 End: January 03Carola Wright ProviderActiveStart: January 03, 2025 End: January 03, 2025 Team Status: Inactive Member Role Status Sue Ochoa MD Primary Care Provider Active Start: February 08, 2025 End: February 08Carola Espinoza ProviderActiveStart: February 08, 2025 End: February 08, 2025 Team Status: Active Member Role Status Sue Ochoa MD Primary Care Provider Active Start: February 08, 2025 Carola Lovett ProviderActiveStart: February 08, 2025 Team MemberRelationshipSpecialtyStart DateEnd Helen Rodríguez MD [address] [place] [id number] PCP - GeneralFamily Medicine02/11/23Team MemberRelationshipSpecialtyStart DateEnd Date Helen Ochoa MD [address] [place] [phone] PCP - [facility]02/11/23Team MemberRelationshipSpecialtyStart DateEnd Date Helen Ochoa MD [address] [place] [phone] PCP - [facility]02/11/23Team MemberRelationshipSpecialtyStart DateEnd Date Helen Ochoa MD [address] [place] [phone] PCP - [facility]02/11/23 Team Status: Inactive Member Role Status Dates Helen Ochoa MD Primary Care Provider Active Start: April 05, 2025 End: April 05, 2025KATELYN Domingo-[facility]At[facility] ProviderActiveStart: April 05, 2025 End: April 05, 2025Orquidea Issa MDOther ProviderActiveStart: April 05, 2025 End: April 05, 2025 Team Status: Active Member Role Status Dates Helen Ochoa MD Primary Care Provider Active Start: April 05, 2025 Brook Huddleston MDAttakshat ProviderActiveStart: April 05, 2025 Team MemberRelationshipSpecialtyStart DateEnd Date Helen Ochoa MD [address] [place] [id number] PCP - [facility]02/11/23Team MemberRelationshipSpecialtyStart DateEnd Date Helen Ochoa MD [address] [place] [phone] [facility] Team Status: Active Member Role Status Dates Helen Ochoa MD Primary Care Provider Active Start: April 27, 2025 Ivanrajinder Manfahad Carola ProviderActiveStart: April 27, 2025 Team Status: Inactive Member Role Status Dates Helen Ochoa MD Primary Care Provider Active Start: May 02, 2025 End: May 02Carola Wright ProviderActiveStart: May 02, 2025 End: May 02, 2025 REASON FOR VISIT (unrecogniz ed section and content) ReasonCommentsFollow UpReasonCommentsAnesthesia ConsultUrethral strictureReason Onset DateCommentsRefill Zuduxoc4402/25/2023ReasonCommentsneph tube placement ReasonCommentsRadiology Pre Procedure InstructionsReasonCommentsIR Outpatient Tube Appointment RequestReasonCommentsOpened In ErrorReasonCommentsPatient Update Goals (unrecognized section and content) Goals may be documented in a n alternate section Source Comments (unrecognize d section and content) In the event this informatio n is protected by the Federal Confidentiality of Alcohol and Drug Abuse Patient Records regulations: The Federal rules restrict any use of the information to criminally investigate or prosecute any alcohol or drug abuse patient.[facility] HospitalIn the event this information is protected by the Federal Confidentiality of Alcohol and Drug Abuse Patient Records regulations: The Federal rules restrict any use of the information to criminally investigate or prosecute any alcohol or drug abuse patient.[facility] HospitalIn the event this information is protected by the Federal Confidentiality of Alcohol and Drug Abuse Patient Records regulations: The Federal rules restrict any use of the information to criminally investigate or prosecute any alcohol or drug abuse patient.[facility] HospitalIn the event this information is protected by the Federal Confidentiality of Alcohol and Drug Abuse Patient Records regulations: The Federal rules restrict any use of the information to criminally investigate or prosecute any alcohol or drug abuse patient.[facility] HospitalIn the event this information is protected by the Federal Confidentiality of Alcohol and Drug Abuse Patient Records regulations: The Federal rules restrict any use of the information to criminally investigate or prosecute any alcohol or drug abuse patient.[facility] HospitalIn the event this information is protected by the Federal Confidentiality of Alcohol and Drug Abuse Patient Records regulations: The Federal rules restrict any use of the information to criminally investigate or prosecute any alcohol or drug abuse patient.[facility] HospitalIn the event this information is protected by the Federal Confidentiality of Alcohol and Drug Abuse Patient Records regulations: The Federal rules restrict any use of the information to criminally investigate or prosecute any alcohol or drug abuse patient.[facility] HospitalIn the event this information is protected by the Federal Confidentiality of Alcohol and Drug Abuse Patient Records regulations: The Federal rules restrict any use of the information to criminally investigate or prosecute any alcohol or drug abuse patient.[facility] HospitalIn the event this information is protected by the Federal Confidentiality of Alcohol and Drug Abuse Patient Records regulations: The Federal rules restrict any use of the information to criminally investigate or prosecute any alcohol or drug abuse patient.[facility] HospitalIn the event this information is protected by the Federal Confidentiality of Alcohol and Drug Abuse Patient Records regulations: The Federal rules restrict any use of the information to criminally investigate or prosecute any alcohol or drug abuse patient.[facility] HospitalIn the event this information is protected by the Federal Confidentiality of Alcohol and Drug Abuse Patient Records regulations: The Federal rules restrict any use of the information to criminally investigate or prosecute any alcohol or drug abuse patient.[facility] HospitalIn the event this information is protected by the Federal Confidentiality of Alcohol and Drug Abuse Patient Records regulations: The Federal rules restrict any use of the information to criminally investigate or prosecute any alcohol or drug abuse patient.[facility] HospitalIn the event this information is protected by the Federal Confidentiality of Alcohol and Drug Abuse Patient Records regulations: The Federal rules restrict any use of the information to criminally investigate or prosecute any alcohol or drug abuse patient.[facility] FOR RECORDS PERTAINING TO PATIENTS WHO [...] BE BASED ON THE PRIMARY CLINICAL RECORDS. [employer] [facility]. provides no warranty or guarantee of the accuracy or completeness of information in this document.
[2025-08-14 08:14] LABS: Hematocrit 30.4 % (42.0-54.0); Hemoglobin 9.9 g/dL (14.0-18.0); Mean Corpuscular HGB Conc 32.6 g/dL (29.9-35.2); Mean Corpuscular Hemoglobin 34.1 pg (25.9-34.0); Mean Corpuscular Volume 104.8 fL (80.0-94.0); Platelet Count 202 10^3/uL (150-450); Red Blood Count 2.90 10^6/uL (4.70-6.10); White Blood Count 7.6 10^3/uL (4.0-11.0)
[2025-08-14 09:02] LABS: Protein Creatinine Ratio Urine 1.75; Total Protein Urine Random 121.0 mg/dL (<=11.9)
[2025-08-14 10:31] LABS: Anion Gap 13.4; Blood Urea Nitrogen 33.0 mg/dL (7.0-18.0); Carbon Dioxide 23.5 mmol/L (21.0-32.0); Chloride 107 mmol/L (98-107); Glucose 200 mg/dL (74-106); Potassium 3.9 mmol/L (3.5-5.1); Sodium 140 mmol/L (136-145)
[2025-08-14 10:32] LABS: Albumin Level 3.0 g/dL (3.4-5.0); Calcium 9.0 mg/dL (8.5-10.1); Estimated GFR (African America 26 (>=60 mL/min/1.73m^2); Estimated GFR (Non-African Ame 21 (>=60 mL/min/1.73m^2); Magnesium 2.3 mg/dL (1.8-2.4); Uric Acid 4.8 mg/dL (3.5-7.2)
== END 2025-08-14 07:37 | disposition home or self-care (01) ==
LOC: LAB 07:38
PROVIDERS: PCP Family Medicine; Visit Provider Internal Medicine Nephrology
DX: N18.4 Chronic kidney disease, stage 4 (severe) (principal); E11.9 Type 2 diabetes mellitus without complications; E83.39 Other disorders of phosphorus metabolism; Z86.2 Personal history of diseases of the blood and blood-forming organs and certain disorders involving the immune mechanism; D63.1 Anemia in chronic kidney disease; N28.89 Other specified disorders of kidney and ureter
CPT/HCPCS: 36415; 80069; 82306; 82570; 83735; 83970; 84156; 84550; 85027